=== PATIENT | female | born 1935 | race Caucasian/White ===

== ENCOUNTER 2019-10-11 12:25 | Emergency (ER) | payer OTHER, SELFPAY ==
[2019-10-11 12:28] VITALS: BP 154/75; PULSE 72; RESP 20; TEMP 36.6; O2SAT 97; BMI 32.0
--- NOTE | 2019-10-11 12:39 | CT_ITS ---
STUDY: CT CHEST WITHOUT CONTRAST REASON FOR EXAM: Female, 84 years old. FALL 3 DAYS AGO, STERNAL PAIN, RT SIDE CHEST PAIN RADIATION DOSAGE (If Supplied By Facility): CTDIvol = ( 18.02 ) mGy, DLP = ( 532.73 ) mGycm TECHNIQUE: Transaxial imaging was performed without the administration of intravenous contrast material. Multiplanar coronal and sagittal images were reformatted. Individualized dose optimization techniques were used for this CT. COMPARISON: None. FINDINGS: There is a small right pleural effusion. Mild degree of right basilar atelectasis superimposed on mild bibasilar scarring. There are calcifications of the coronary arteries. There are multiple small lymph nodes within the mediastinum, which are normal in size and morphology most compatible with reactive lymph hyperplasia. Normal hilar regions. Normal unenhanced pulmonary arteries. There is atherosclerotic calcification of the aortic arch . There are multi-level degenerative changes of the thoracic spine. There is no demonstrated abnormality of the visualized upper abdomen. CT/Chest without Contrast IMPRESSION: Small right pleural effusion with a mild degree of right basilar atelectasis superimposed on bibasilar scarring. Electronically Signed: Mio Gipson, at 13:23 EDT , Service support ,
--- NOTE | 2019-10-11 12:39 | EKG12_ITS ---
Test Reason : Blood Pressure : / mmHG Vent. Rate : 071 BPM Atrial Rate : 071 BPM P-R Int : 174 ms QRS Dur : 092 ms QT Int : 370 ms P-R-T Axes : 023 -25 029 degrees QTc Int : 402 ms Normal sinus rhythm with sinus arrhythmia Poor R wave progression Confirmed by SRUTHI LENNON, SILVIA ([id number]), acquisition editor LISS PARKER ([id number]) on 10/13/2019 1:13:35 PM Referred By: YASMEEN Confirmed By:SILVIA NEGRO MD
--- NOTE | 2019-10-11 12:42 | NURSING ---
NO OLD EKGS
--- NOTE | 2019-10-11 12:59 | ED.VISSUMM ---
- ER Visit Summary Date of Service: 10/11/19 Chief Complaint: [Fall with injury to chest] History of Present Illness: The patient is a 84 F [presents the emergency department with a fall that she sustained 3 days ago. Patient states that she tripped over a lawnmower and fell onto a piece of the lawnmower that was protruding over the wheel of the lawnmower causing an injury to her anterior chest. She denies tracking her head. No loss of consciousness. Patient is on Coumadin currently. She states that her right breast turned black and blue. She has pain with movement and taking a deep breath. She denies any shortness of breath. She denies any abdominal pain. Denies any neck pain. She did sustain a contusion to her knee but she is been walking and otherwise is doing well with it. Patient has history of diabetes, hypertension, and coronary artery disease.] Physical Examination: [HEENT-PERRLA, EOMI. Cranial nerves II through XII grossly intact. TMs clear. Mucous membranes moist. No adenopathy. Cardiovascular-regular rate and rhythm without murmur or ectopy Lungs-clear to auscultation, chest wall stable without crepitus or subcu emphysema. Patient does have ecchymosis and bruising to the right breast. She has tenderness over the sternum. She has tenderness over the right anterior chest. Abdomen-normoactive bowel sounds, soft, nontender, no rebound or rigidity, no peritoneal signs. Extremities-intact ?4, normal range of motion, normal pulses. Right knee-patient has some mild old ecchymosis and bruising noted anteriorly but normal range of motion. No real bony tenderness on exam. Neurovascular intact.] Test Results: [CBC with differential was unremarkable. INR was 2.1. EKG obtained arrival shows sinus rhythm with a ventricular rate 71 bpm with no acute segment changes. Troponin was less than 0.015. CT scan of the chest without contrast obtained showed an anterior sixth rib fracture.] Emergency Department Course and Treatment: [Patient will be dispensed an incentive spirometer] Treatment Plan: [Patient did not want any narcotic pain medication for home. She will be given incentive spirometer. Patient advised to follow-up with her primary care physician within next 5 to 7 days. She advised to return if increasing shortness of breath or condition should worsen anyway.] Disposition: [Discharged home in stable condition] Impression: [Right sixth rib fracture] This note was generated with [employer] ([place]ation software. It may contain incorrect words, spelling, and punctuation that were not noted in review of the chart prior to signing
[2019-10-11 13:03] LABS: Absolute Lymphocyte Count 1.89 X10^3/uL (0.83-4.51); Absolute Neutrophil Count 4.5 X10^3/uL (2.0-7.7); Basophil# 0.02 X10^3/uL; Basophil% 0.3 % (0-1); Eosinophil# 0.24 X10^3/uL; Eosinophils% 3.1 % (0-5); Hematocrit 39.2 % (37-47); Hemoglobin 12.8 g/dL (12.0-15.0); Lymphocyte # 1.89 X10^3/ul (4.0); Lymphocyte % 24.7 % (19-41); Mean Corp Hgb Conc 32.7 g/dL (32-36); Mean Corpuscular Hgb 30.4 pg (27.0-32.0); Mean Corpuscular Volume 93.1 fL (81-99); Monocyte# 0.99 X10^3/uL; Monocyte% 12.9 % (0-10); NRBC Flagged by Analyzer 0 % (0-5); Neutrophil % 58.9 % (47-70); Platelet Count 271 K/mm3 (150-450); RBC Distribution Width CV 12.8 % (11.6-14.6); RBC Distribution Width SD 43.4 fl (35.1-43.9); Red Blood Count 4.21 M/mm3 (4.2-5.4); White Blood Count 7.7 K/mm3 (4.4-11.0)
[2019-10-11 13:14] LABS: International Normalized Ratio 2.1; Prothrombin Time (Protime)PT. 22.6 SECONDS (11.7-14.9)
[2019-10-11 14:23] VITALS: BP 145/70; PULSE 70; RESP 16; O2SAT 97
--- NOTE | 2019-10-11 14:35 | ED.DEP ---
ED Disposition - Plan for ED Patient: Instructions: ED Rib Fx Referrals: Rosemary Doran MD [Primary Care Provider] - 5-7 Days
[2019-10-11 15:25] VITALS: BP 145/79; PULSE 94; RESP 22; O2SAT 96
--- NOTE | 2019-10-11 15:26 | ED.RN ---
THIS NURSE REVIEWED D/C INSTRUCTIONS WITH PT. PT VERBALIZED UNDERSTANDING OF INSTRUCTIONS. IV D/C BY PATIENT. PT DENIES FURTHER NEEDS OR QUESTIONS AT THIS TIME. PT AMBULATES FROM ROOM ON OWN WITHOUT ASSISTANCE FROM STAFF
== END 2019-10-11 15:28 | disposition home or self-care (01) ==
PROVIDERS: Emergency Provider Emergency Medicine; PCP Family Medicine
DX: S22.31XA Fracture of one rib, right side, initial encounter for closed fracture (principal); S80.01XA Contusion of right knee, initial encounter; W01.0XXA Fall on same level from slipping, tripping and stumbling without subsequent striking against object, initial encounter; Y93.9 Activity, unspecified; Y92.9 Unspecified place or not applicable; E11.9 Type 2 diabetes mellitus without complications; I10 Essential (primary) hypertension; I25.10 Atherosclerotic heart disease of native coronary artery without angina pectoris; Z79.01 Long term (current) use 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; Z79.899 Other long term (current) drug therapy
CPT/HCPCS: 71250; 84484; 85025; 85610; 93005; 99283; A4216

== ENCOUNTER → 2019-12-10 14:34 | Outpatient (CLI) | payer OTHER, SELFPAY ==
[2019-12-10 12:40] VITALS: BMI 33.5
[2019-12-10 15:28] LABS: Anion Gap 5 (5-15); BUN 25 mg/dL (7-18); BUN/Creat Ratio 19.8 RATIO (10-20); Calcium,Total 9.1 mg/dL (8.5-10.1); Chloride 105 mmol/L (98-107); Creatinine, Serum 1.26 mg/dL (0.55-1.02); EST Glomerular Filtration Rate 43 mL/min (>60); Est Glom Filt Rate - Afr Amer 52 mL/min (>60); Glucose 138 mg/dL (74-106); Sodium Level 140 mmol/L (136-145)
[2019-12-10 15:32] LABS: BNP,B-Type NATRIURETIC PEPTIDE 361.2 pg/mL (0-100)
== END ==
PROVIDERS: PCP Family Medicine; Referring Provider Internal Medicine Cardiovascular Disease; Visit Provider Internal Medicine Cardiovascular Disease
DX: R06.00 Dyspnea, unspecified (principal)
CPT/HCPCS: 36415; 80048; 83880

== ENCOUNTER → 2019-12-23 06:46 | Outpatient (CLI) | payer MEDICARE, SELFPAY ==
[2019-12-10 12:40] VITALS: BMI 33.5
--- NOTE | 2019-12-23 06:47 | ECHOCS_ITS ---
Reason For Study: CAD/ASHD Procedure This was a 2D Doppler, Color Flow transthoracic echocardiogram. Exam performed in department. Left Ventricle Normal LV size. Left ventricular systolic function is normal. The estimated ejection fraction is 55 %. No regional wall motion abnormalities noted. Right Ventricle Normal RV size. Normal systolic function. Atria The left atrium is mildly enlarged. Normal right atrium. Mitral Valve Normal mitral valve. Tricuspid Valve Normal tricuspid valve. Mild tricuspid valve insufficiency. Pulmonary artery systolic pressure is 25 mmHg. Aortic Valve Trisinus/trileaflet aortic valve. Mild focal aortic valve calcification. Mild (1+) eccentric aortic valve insufficiency. Pulmonic Valve Normal pulmonic valve. Great Vessels Normal aortic root. The pulmonary artery is normal size. Normal inferior vena cava. Pericardium/Pleural No pericardial effusion. Medication Diluted definity 4ml given slow IV push to enhance endocardial definition. MMode/2D Measurements & Calculations LVIDd: 3.9 cm IVSd: 0.97 cm Ao root diam: 3.2 cm LVIDs: 2.7 cm LVPWd: 1.0 cm RVDd: 3.0 cm FS: 31.9 % LAV(MOD-bp): 59.1 ml LVAd ap4: 22.7 cm2 SV(MOD-sp4): 41.0 ml LAV(MOD-bp) Indexed: 31.3 ml/m2 EDV(MOD-sp4): 65.1 ml LAV(MOD-sp2): 57.8 ml EDV(sp4-el): 68.4 ml LAV(MOD-sp4): 58.3 ml LVAs ap4: 12.2 cm2 ESV(MOD-sp4): 24.1 ml ESV(sp4-el): 24.4 ml EF(MOD-sp4): 63.0 % EF(sp4-el): 64.4 % SV(sp4-el): 44.1 ml LA A4 area: 20.9 cm2 LA dimension(2D): 4.1 cm RA A4 area: 13.9 cm2 Doppler Measurements & Calculations MV E max little: 87.9 cm/sec Ao V2 max: 126.0 cm/sec AI max little: 317.1 cm/sec Ao max P.4 mmHg AI max P.2 mmHg AI dec slope: 169.6 cm/sec2 AI P1/2t: 547.4 msec LV V1 max: 79.5 cm/sec PA V2 max: 82.2 cm/sec TR max little: 238.7 cm/sec LV V1 max P.5 mmHg TR max P.8 mmHg Interpretation Summary Normal LV size. Left ventricular systolic function is normal. The estimated ejection fraction is 55 %. Contrast injection was performed. Ordering Physician: Cesar Cole Referring Physician: ELENI RUSSO Performed By: Joanna Troncoso RDCS
--- NOTE | 2019-12-23 12:31 | STRESSREP ---
Stress Test Report Pharmacologic myocardial perfusion stress test. 84-year-old lady with a history of previous angioplasty and stenting in 2006 and a history of atrial fibrillation. Stress protocol: Resting EKG demonstrates atrial fibrillation with a rate of 82 bpm normal intervals are noted. Resting blood pressure is 134/72 mmHg. 0.4 mg of regadenoson was infused per usual protocol followed by rapid intravenous saline flush injection continuous EKG monitoring was performed. The maximum heart rate attained was 103 bpm which was 75% of max impacted heart rate the maximum workload was 1 metabolic equivalent. At rest there were no ST or T wave changes noted to suggest abnormal flow reserve and at peak infusion nonspecific ST-T wave changes were noted. The final blood pressure was 124/72 mmHg. Myocardial perfusion protocol. 11.1 mCi of technetium 99m sestamibi was injected at rest. 0.4 mg of regadenoson was infused per usual protocol. At peak infusion 33.5 mCi of technetium 99m sestamibi was injected stress images were obtained stress and rest images were reconstructed and compared in the short axis vertical long and horizontal long axis. Gated images were also obtained. Perfusion SPECT analysis: Review of the images demonstrate normal perfusion noted in the septal and lateral wall and inferior wall. The distal anterior wall towards the apex on the stress images has mild reduction of perfusion which appears to improve on the resting images suggesting a mild amount of distal anterior ischemia present. Gated SPECT analysis: The gated ejection fraction is 72%. Conclusion: Abnormal pharmacologic myocardial perfusion stress test with distal anterior and apical ischemia. Preserved ejection fraction. Atrial fibrillation present.
== END ==
PROVIDERS: PCP Family Medicine; Referring Provider Internal Medicine Cardiovascular Disease; Visit Provider Internal Medicine Cardiovascular Disease
DX: I25.10 Atherosclerotic heart disease of native coronary artery without angina pectoris (principal); I48.19 Other persistent atrial fibrillation; Z95.5 Presence of coronary angioplasty implant and graft
CPT/HCPCS: 78452; 93017; 93306; A9500; Q9957; A4216; C8929; J2785

== ENCOUNTER 2019-12-27 09:52 | Day surgery (SDC) | payer MEDICARE, SELFPAY ==
[2019-12-10 12:40] VITALS: BMI 33.5
[2019-12-24 09:35] VITALS: BMI 33.5
[2019-12-24 10:32] LABS: Hematocrit 41.8 % (37-47); Hemoglobin 13.6 g/dL (12.0-15.0); Mean Corp Hgb Conc 32.5 g/dL (32-36); Mean Corpuscular Volume 92.1 fL (81-99); Mean Platelet Vol. 10.9 fl (6.2-12.0); Platelet Count 287 K/mm3 (150-450); RBC Distribution Width CV 12.8 % (11.6-14.6); RBC Distribution Width SD 43.5 fl (35.1-43.9); Red Blood Count 4.54 M/mm3 (4.2-5.4); White Blood Count 7.2 K/mm3 (4.4-11.0)
[2019-12-24 11:10] LABS: Anion Gap 4 (5-15); BUN 28 mg/dL (7-18); BUN/Creat Ratio 21.1 RATIO (10-20); Calcium,Total 9.3 mg/dL (8.5-10.1); Chloride 106 mmol/L (98-107); Creatinine, Serum 1.33 mg/dL (0.55-1.02); EST Glomerular Filtration Rate 40 mL/min (>60); Est Glom Filt Rate - Afr Amer 49 mL/min (>60); Estimated Creatinine Clearance 26.05 ml/min; Glucose 136 mg/dL (74-106); Potassium 4.6 mmol/L (3.5-5.1); Sodium Level 140 mmol/L (136-145)
[2019-12-27 10:00] LABS: Prothrombin Time Fingerstick 19.9 SEC (11.9-14.4)
--- NOTE | 2019-12-27 12:51 | CL.D_ITS ---
Patient Name: EZRA GONZALEZ Study Date: 12/27/2019 Performing: Cesar Cole MD Ht: 63 inches 160 cm : 1935 Wt: 189.8 lbs 86 kg Age: 84 Gender: female BSA: 1.89 PROCEDURE(S) PERFORMED WW60-CTL/COR/LV CLINICAL PROFILE AND INDICATIONS Indications: Suspected CAD Heart Failure: None Stress/Imaging Standard Exercise Stress Test: Yes Result: Positive Intermediate Risk CAD Presentations: No Sxs, no angina. CONCLUSIONS Moderate coronary artery disease involving the LAD and circumflex distribution and mild disease noted in the right coronary artery. Coronary calcification present. RECOMMENDATIONS Medical therapy DESCRIPTION OF PROCEDURE The patient arrived to the procedure lab. The risks and benefits of the procedure as well as a full d escription of our services here and current unavailability of surgical backup were fully explained to the patient and/or their significant other prior to the catheterization. The Timeout was completed, verifying the correct patient and procedure. The patient's procedural site was prepped and draped in the usual fashion. Local anesthetic was given subcutaneously to right radial region with Lidocaine 2% . Using a modified Seldinger technique, arterial access was obtained via the right radial artery, a 6 Fr sheath was inserted. Right Coronary Artery selective angiography was then performed in multiple v iews using a 5 Fr. 4.0 [place]cad[place] catheter. Left Coronary Artery selective angiography was performed in mu ltiple views using a 5 Fr. JL3.5 catheter. Left Ventriculography was performed in LUGO projection usin g a 5 Fr. Pigtail catheter. LV to AO pullback pressures were then recorded.The arterial sheath was pulled and a TR Band was applied for hemostasis.15cc of air CORONARY ANGIOGRAPHY DOMINANCE: Right Dominant LEFT HEART ASSESSMENT Left Ventricular Ejection Fraction: by LV Gram 60 % Normal LV wall motion Normal Left Ventricular systolic function LEFT MAIN: Mild calcification LEFT ANTERIOR DESCENDING ARTERY: Moderate luminal irregularities up to 50% CIRCUMFLEX ARTERY: Moderate luminal irregularities up to 50% RIGHT CORONARY ARTERY: Mild luminal irregularities less than 30% Moderate calcification COMPLICATIONS No Complications PROCEDURE MEDICATIONS Versed 1 mg IV Fentanyl 50 mcg IV Versed 1 mg IV Fentanyl 25 mcg IV Oxygen: 2 L/min via nasal cannula SUMMARY OF HEMODYNAMIC DATA Time AIR REST ECG 11:16:44 AO 132/73 (94) SA 12:05:56 AO 119/68 (92) 12:10:32 LV 161/12, 15 12:37:13 LV 152/8, 40 12:37:19 LV 143/9, 11 12:38:30 LVp 151/8, 12 12:38:37 AOp 153/73 (110) 12:38:42 Signed By Cesar Cole MD On 12/27/2019 12:50:17 PM Cesar Cole MD
== END 2019-12-27 14:50 | disposition home or self-care (01) ==
LOC: CLSP 09:52
PROVIDERS: PCP Family Medicine; Referring Provider Internal Medicine Cardiovascular Disease; Visit Provider Internal Medicine Cardiovascular Disease
DX: I25.10 Atherosclerotic heart disease of native coronary artery without angina pectoris (principal); I48.19 Other persistent atrial fibrillation; E78.5 Hyperlipidemia, unspecified; E11.22 Type 2 diabetes mellitus with diabetic chronic kidney disease; I12.9 Hypertensive chronic kidney disease with stage 1 through stage 4 chronic kidney disease, or unspecified chronic kidney disease; N18.9 Chronic kidney disease, unspecified; E66.9 Obesity, unspecified; Z68.33 Body mass index [BMI] 33.0-33.9, adult; I48.0 Paroxysmal atrial fibrillation; M19.90 Unspecified osteoarthritis, unspecified site; M48.00 Spinal stenosis, site unspecified; Z95.5 Presence of coronary angioplasty implant and graft; Z79.01 Long term (current) use 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; Z79.82 Long term (current) use of aspirin; Z79.84 Long term (current) use of oral hypoglycemic drugs; Z79.899 Other long term (current) drug therapy; Z87.891 Personal history of nicotine dependence
CPT/HCPCS: 36415; 36416; 80048; 85027; 85610; 93458; 99152; 99153; J7040; Q9967; C1769; C1887; C1894

== ENCOUNTER 2020-01-24 10:32 | Outpatient (RCR) | payer MEDICARE, SELFPAY ==
[2019-12-24 09:35] VITALS: BMI 33.5
[2020-01-10 12:36] LABS: International Normalized Ratio 1.8; Prothrombin Time (Protime)PT. 20.8 SECONDS (11.7-14.9)
[2020-01-17 11:31] LABS: Prothrombin Time (Protime)PT. 37.1 SECONDS (11.7-14.9)
[2020-01-17 11:46] LABS: International Normalized Ratio 3.8
[2020-01-24 11:18] LABS: International Normalized Ratio 3.1; Prothrombin Time (Protime)PT. 31.5 SECONDS (11.7-14.9)
== END 2020-01-24 18:00 | disposition home or self-care (01) ==
LOC: LAB 10:32
PROVIDERS: PCP Family Medicine; Referring Provider Internal Medicine Cardiovascular Disease; Visit Provider Internal Medicine Cardiovascular Disease
DX: I48.0 Paroxysmal atrial fibrillation (principal); Z95.5 Presence of coronary angioplasty implant and graft; R06.00 Dyspnea, unspecified; I25.2 Old myocardial infarction; I11.0 Hypertensive heart disease with heart failure; I50.32 Chronic diastolic (congestive) heart failure; I48.19 Other persistent atrial fibrillation; E78.5 Hyperlipidemia, unspecified
CPT/HCPCS: 36415; 85610

== ENCOUNTER → 2020-03-10 11:21 | Outpatient (CLI) | payer MEDICARE, SELFPAY ==
[2020-02-02 10:03] VITALS: BMI 33.6
[2020-03-10 15:54] LABS: Prothrombin Time (Protime)PT. 39.9 SECONDS (11.7-14.9)
[2020-03-10 16:13] LABS: International Normalized Ratio 4.1
== END ==
PROVIDERS: PCP Family Medicine; Visit Provider Family Medicine
DX: I48.20 Chronic atrial fibrillation, unspecified (principal); Z79.01 Long term (current) use 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
CPT/HCPCS: 36415; 85610

== ENCOUNTER 2020-04-19 07:34 | Emergency (ER) | payer MEDICARE, SELFPAY ==
[2020-02-02 10:03] VITALS: BMI 33.6
[2020-04-19 07:35] VITALS: BP 165/74; PULSE 56; RESP 16; TEMP 36.3; O2SAT 94; BMI 34.0
--- NOTE | 2020-04-19 07:36 | RAD_ITS ---
STUDY: X-RAY - LUMBAR SPINE REASON FOR EXAM: Female, 84 years old. LBP. HX TRAUMA TECHNIQUE: 3 view(s) of the lumbar spine were obtained. COMPARISON: None FINDINGS: There is straightening of the normal lumbar lordosis. There is no substantial scoliosis. There is a normal alignment of the vertebrae. There is multilevel endplate spondylosis of the lumbar vertebrae. There is multi-level degenerative disc disease with multi-level disc space narrowing. This is worse at the L3-L4 level. Facet joint osteoarthritis. The patient is status post left hip replacement. There is atherosclerotic calcification of the abdominal aorta without a demonstrated aneurysm. Calcified gallstone. Large amount of fecal material is seen within the colon. RAD/Lumbar Spine 2 or 3 Views IMPRESSION: Degenerative changes of the spine, as detailed above. Calcified gallstone. Electronically Signed: Mio Gipson MD at 8:35 EST , Service support ,
[2020-04-19] MEDS: Ondansetron 4 MG/2 ML Vial IV (07:49)
[2020-04-19] MEDS: Morphine 4 MG/ML Syringe IV (07:49)
--- NOTE | 2020-04-19 08:19 | ED.VIS.INJ ---
History of Present Illness Chief Complaint: Back Informant: Patient Onset: Yesterday Mechanism/Context: Blunt Injury, Fall Quality of Pain: Dull, Aching Location: Upper lumbar region Current Severity: Mild Maximum Severity: Severe Worsened by: Movement Relieved by: Nothing Associated Symptoms: Negative for: Parasthesias, Weakness, Loss of function, Inability to ambulate, Loss of consciousness, Amnesia Length of loss of consciousness: Not applicable Narrative: Patient is an 84-year-old woman who had a mechanical fall. She struck the curb. She denies head trauma. No loss of conscious. She is on anticoagulant. She denies hematuria. She denies paresthesia, anesthesia or motor weakness in her lower extremities. She denies saddle paresthesia or anesthesia. She denies bowel or bladder dysfunction. Movement exacerbates her pain. Nothing alleviates the pain. She did take significant other's tramadol which made her nauseous. She denies prior injury. She has no other complaints. She did arrive via ambulance. 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 Status: Acute (2) Atherosclerotic heart disease of elim ira coronary artery without angina pectoris Status: Chronic (3) Chronic diastolic (congestive) heart failure Status: Chronic (4) Essential (primary) hypertension Status: Chronic (5) Hyperlipidemia Status: Chronic (6) Paroxysmal atrial fibrillation Status: Chronic Comment: RFA 2011 (7) History of coronary artery stent placement Status: Resolved Comment: PCI-JOE-Mid LCx w/ 2.5 x 20 mm Taxus Stent 02/14/2007 Past Medical History - Allergies and Home Meds Allergies/Adverse Reactions: Allergies latex Allergy (Verified 02/02/20 10:03) rash atorvastatin [From Lipitor] Adverse Reaction (Verified 02/02/20 10:03) myalgia codeine Adverse Reaction (Verified 02/02/20 10:03) Nausea meperidine [From Demerol] Adverse Reaction (Verified 02/02/20 10:03) Nausea/Vom/Diarrhea rosuvastatin [From Crestor] Adverse Reaction (Verified 02/02/20 10:03) myalgia Primary Care Physician: Rosemary Doran MD [Primary Care Provider] - Prior records reviewed: Yes Surgical History: noncontributory Lives: Spouse/ Significant Other Smoking Status: Former smoker Alcohol: Rare Drugs: None Review of Systems General: Denies: Chills, Fever, Malaise, Subjective, Sweats Eyes: Denies: Visual changes - bilaterally, Blurred Vision - bilaterally ENT: Reports: - - Negative epistaxis. Denies: Rhinorrhea, Sore throat Cardiovascular: Denies: Chest pain, Palpitations Respiratory: Denies: Dyspnea, Cough, Dyspnea on exertion Gastrointestinal: Denies: Abdominal pain, Nausea, Vomiting, Diarrhea, Melena, Hematochezia Genitourinary: Denies: Hematuria, Frequency Musculoskeletal: Reports: Back pain. Denies: Myalgias, Arthralgias, Neck pain, Swelling, Extremity Pain Skin: Denies: Rash, Wounds Neurological: Denies: Headache, Weakness, Parasthesia Endocrine: Denies: Polyuria, Polydipsia Hematologic: Reports: Easy bruising. Denies: Easy bleeding Allergy: Denies: Uticaria, Swelling of the mouth Physical Exam Vital Signs/Narrative: Vital Signs Temp Pulse Resp BP Pulse Ox 04/19/20 07:35 97.3 F L 56 L 16 165/74 H 94 Inital Vital Signs reviewed: Yes General: Well nourished, Well developed, Obese Head: Normocephalic, Atraumatic. Negative for: Trauma, Tenderness Eyes: Perrl, EOMI. Negative for: Pale conjunctiva, Scleral icterus ENT: TM's clear, No hemotympanum or drainage, No trauma, - - No clinical findings of basilar skull fracture.. Negative for: Hemotympanum, Otorrhea, Nasal trauma, Nasal septal hematoma Neck: Nontender, Full ROM, - - He was cleared per Nexus criteria.. Negative for: Spinal Tenderness, Paraspinal Tenderness Cardiovascular: Regular rhythm, No murmurs, Normal S1, Normal S2, Bradycardia Respiratory: No distress, CTA bilaterally, Chest nontender Abdomen: Soft, Nontender, Nondistended, Normal bowel sounds, No masses, - - There is no pain palpation of the pelvis. Rectal: Deferred Back: Spinal Tenderness - Tenderness area of L2., Negative SLR - Right, Negative SLR - Left. Negative for: Nontender, CVA Tenderness - Right, CVA Tenderness - Left, Paraspinal Tenderness, Positive SLR - Right, Positive SLR - Left Extremeties: There is no asymmetry. There is no discoloration. Scars noted due to right and left total knee arthroplasty. Scar noted lateral proximal right hip due to right total hip arthroplasty. Skin: Normal color, No rash Neurological: Alert, Oriented x3, Cranial nerves II-XII grossly intact, Normal Strength, Normal Sensation, Normal DTR - No clonus or Babinski sign., - - DP and PT pulse are palpable. Psychological: Normal affect, Normal Mood - Glascow Coma Scale Eye Opening: Spontaneous Motor: Obeys Commands Verbal: Oriented Coma Scale Total: 15 Diagnostic/Tx/Re-eval Chest X-Ray - ED: Read by ED Physician - 3 views of the LS-spine were obtained. There is abnormality of L1. There appears to be slight compression and on the PA view there is fracture noted inferior portion of the vertebrae on the right. There is calcification of the aorta. Patient has a prosthetic hip noted as well on the right., - - Is evidence of DJD with asymmetric disc space noted as well. 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 04/19/20 07:36 Lumbar Spine 2 or 3 Views [RAD] Stat - Medical Decision Making Was obtained to evaluate for compression fracture. Patient was medicated with Zofran and morphine IV push. Since there is no history of head trauma and she has no neurologic symptoms and a normal neurologic exam with a GSC of 15 imaging of the head was not obtained. She has urinated and has not noted dark urine or blood in her urine a UA was not obtained. Patient was reassessed at 0828. Ports her pain is improved markedly. 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 She also was given a prescription for antiemetic. Since she has history of osteopenia/osteoporosis prescription for calcitonin was written as well. ED Disposition - Plan for ED Patient: Disposition: Home or Assisted Living Diagnosis: Closed L1 vertebral fracture, [facility] current use of anticoagulant Instructions: ED Fracture, Vertebral Compression Prescriptions: Calcitonin,[place],Synthetic [Calcitonin-[place]] 3.7 ml NS BID #1 spray.pump Transmission Status: Pending to [facility] Oxycodone HCl/Acetaminophen [Percocet 5/325] 1 tablet PO Q6H PRN PRN 5 Days #20 tablet PRN Reason: Back pain Transmission Status: Sent to [facility] Ondansetron [Zofran Odt] 4 mg PO Q8H PRN PRN #10 tab PRN Reason: Nausea Transmission Status: Pending to [facility] Referrals: Rosemary Doran MD [Primary Care Provider] - 1 Week if not improving
[2020-04-19 08:41] VITALS: BP 141/63; PULSE 63; RESP 14; O2SAT 94
== END 2020-04-19 08:56 | disposition home or self-care (01) ==
LOC: ED 08:36
PROVIDERS: Emergency Provider Emergency Medicine; PCP Family Medicine
DX: S32.019A Unspecified 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 lumbar vertebra, initial encounter for closed fracture (principal); W19.XXXA Unspecified fall, initial encounter; Y93.9 Activity, unspecified; Y92.9 Unspecified place or not applicable; E66.9 Obesity, unspecified; E78.5 Hyperlipidemia, unspecified; I25.10 Atherosclerotic heart disease of native coronary artery without angina pectoris; I48.0 Paroxysmal atrial fibrillation; I11.0 Hypertensive heart disease with heart failure; I50.32 Chronic diastolic (congestive) heart failure; Z95.5 Presence of coronary angioplasty implant and graft; Z79.01 Long term (current) use 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; Z79.82 Long term (current) use of aspirin; Z79.899 Other long term (current) drug therapy; Z87.891 Personal history of nicotine dependence
CPT/HCPCS: 72100; 96374; 96375; 99285; A4216; J2405

== ENCOUNTER 2020-05-05 13:30 | Outpatient (RCR) | payer MEDICARE, SELFPAY | END 2020-05-05 23:59 | LOC: IMMUN 13:30 | PROVIDERS: PCP Family Medicine; Referring Provider Family Medicine; Visit Provider Family Medicine | DX: Z23 Encounter for immunization (principal) | CPT/HCPCS: 0011A; 0012A ==

== ENCOUNTER → 2020-05-30 13:09 | Outpatient (CLI) | payer MEDICARE, SELFPAY ==
[2020-05-30 14:24] LABS: International Normalized Ratio 4.1; Prothrombin Time (Protime)PT. 39.2 SECONDS (11.7-14.9)
== END ==
PROVIDERS: PCP Family Medicine; Visit Provider Family Medicine
DX: Z79.01 Long term (current) use 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 (principal)
CPT/HCPCS: 36415; 85610

== ENCOUNTER 2020-06-21 07:29 | Day surgery (SDC) | payer MEDICARE, SELFPAY ==
[2020-06-21] VITALS (7 sets, daily range): BP systolic 123–151; BP diastolic 52–76; PULSE 55–67; RESP 16; TEMP 36.3–37.1; O2SAT 93–99; BMI 30.2
[2020-06-21 08:15] LABS: INR Fingerstick 1.8; Prothrombin Time Fingerstick 20.3 SEC (11.9-14.4)
[2020-06-21] MEDS: Lactated Ringers 1,000 ML 100 ML IV (08:45)
[2020-06-21 08:53] LABS: International Normalized Ratio 1.4; Prothrombin Time (Protime)PT. 16.6 SECONDS (11.7-14.9)
[2020-06-21 08:55] LABS: Bedside Glucose 125 mg/dL (70-110)
--- NOTE | 2020-06-21 09:00 | BON_PTH ---
PATIENT: EZRA GONZALEZ LOC: [facility] [place] U#:[id number] AGE/SX: 84/F ROOM: RE06/21/[address]: Dr. Solange Lindsay MD : 1935 BED: DIS: 06/21/2020 SPEC #: [id number] RECD: 06/21/20 10:18 STATUS: FANNY RECynthia #: [id number] KELLIE: 06/21/20 09:[address]: Solange Lindsay DEPT: SURGICAL PATHOLOGY RECD BY: Kishore Griffith ENTERED: 06/21/20 10:40 SP TYPE: Bone OTHR DR: Dr. Rosemary Doran MD Tissues: Vertebra, NOS Procedures: Decalcification bone/plaque Surgery Specimen Level V HEADER OPERATION: Kyphoplasty L1 PRE-OP DIAGNOSIS: Compression fracture TISSUE SUBMITTED: Lumbar 1 vertebral body MICROSCOPIC DIAGNOSIS Lumbar 1 vertebral body, kyphoplasty: Pieces of bone with reactive changes and focal area of callus formation, clinically compression fracture. Negative for malignancy. JOSELUIS:allen 06/22/2020 MICROSCOPIC DESCRIPTION Slides are reviewed. GROSS DESCRIPTION Received in fixative is one container labeled with the patient's name and designated L1 vertebral body. The specimen consists of multiple fragments of bone that in aggregate measure 1.5 x 0.3 x 0.1 cm. The entire specimen is submitted in one cassette after decalcification. / JOSELUIS:allen 06/21/20 TC:5 CPT: 89526, 72139
--- NOTE | 2020-06-21 09:34 | RAD_ITS ---
CLINICAL HISTORY: Female, 84 years old. Chronic back pain. PROCEDURE: KYPHOPLASTY - L1 vertebrae. FLUOROSCOPY TIME (if supplied): (105.6 seconds) minutes/seconds. 8 intraoperative images were obtained. RAD/Lumbar Spine 2 or 3 Views IMPRESSION: Intraoperative imaging provided for kyphoplasty of the L1 vertebrae. Electronically Signed: Mio Gipson MD at 10:21 EDT , Service support ,
[2020-06-21] MEDS: Lidocaine 0.5% (50 ml) 50 ML Vial (09:59)
== END 2020-06-21 12:16 | disposition home or self-care (01) ==
LOC: SDC 07:30 → AC 07:31
PROVIDERS: Anesthesiology; PCP Family Medicine; Referring Provider Anesthesiology Pain Medicine; Visit Provider Anesthesiology Pain Medicine
PROC: (CPT 22514; principal; 2020-06-21 08:45)
DX: M80.88XA Other osteoporosis with current pathological fracture, vertebra(e), initial encounter for fracture (principal); M51.37 Other intervertebral disc degeneration, lumbosacral region; M51.36 Other intervertebral disc degeneration, lumbar region; I12.9 Hypertensive chronic kidney disease with stage 1 through stage 4 chronic kidney disease, or unspecified chronic kidney disease; N18.9 Chronic kidney disease, unspecified; I48.91 Unspecified atrial fibrillation; K58.9 Irritable bowel syndrome, unspecified; K21.9 Gastro-esophageal reflux disease without esophagitis; Z87.891 Personal history of nicotine dependence; Z20.828 Contact with and (suspected) exposure to other viral communicable diseases; Z79.899 Other long term (current) drug therapy; Z79.01 Long term (current) use 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; G89.29 Other chronic pain
CPT/HCPCS: 22514; 36416; 72100; 76000; 82962; 85610; 87426; 88305; 88307; 88311; C9803; J7120; J2405

== ENCOUNTER → 2020-08-04 11:28 | Outpatient (CLI) | payer MEDICARE, SELFPAY ==
[2020-08-04 09:54] VITALS: BMI 29.5
[2020-08-04 12:56] LABS: ALB/GLOB Ratio 0.8 RATIO (0.9-2.4); AST(SGOT) 13 U/L (15-37); Alanine Aminotransfer ALT/SGPT 12 U/L (13-56); Albumin, Serum 3.3 g/dL (3.2-5.0); Alkaline Phosphatase 87 U/L (45-117); Anion Gap 3 (5-15); BUN 15 mg/dL (7-18); BUN/Creat Ratio 12.7 RATIO (10-20); Calcium,Total 9.1 mg/dL (8.5-10.1); Chloride 105 mmol/L (98-107); Creatinine, Serum 1.18 mg/dL (0.55-1.02); EST Glomerular Filtration Rate 46 mL/min (>60); Est Glom Filt Rate - Afr Amer 56 mL/min (>60); Free T3 2.2 pg/mL (2.18-3.98); Globulin 3.9 g/dL (2.2-4.2); Glucose 98 mg/dL (74-106); Potassium 4.3 mmol/L (3.5-5.1); Protein, Total 7.2 g/dL (6.4-8.2); Sodium Level 140 mmol/L (136-145); Thyroid Stim Hormone (TSH) 2.08 uIU/mL (0.358-3.74)
== END ==
PROVIDERS: PCP Family Medicine; Referring Provider Physician Assistant Medical; Visit Provider Physician Assistant Medical
DX: I25.10 Atherosclerotic heart disease of native coronary artery without angina pectoris (principal); E78.5 Hyperlipidemia, unspecified; I11.0 Hypertensive heart disease with heart failure; I48.0 Paroxysmal atrial fibrillation; I50.32 Chronic diastolic (congestive) heart failure
CPT/HCPCS: 36415; 80053; 84439; 84443; 84481

== ENCOUNTER 2020-08-10 10:12 | Outpatient (RCR) | payer MEDICARE, SELFPAY ==
[2019-12-24 09:35] VITALS: BMI 33.5
[2020-08-04 09:54] VITALS: BMI 29.5
[2020-08-10 11:19] LABS: International Normalized Ratio 1.4; Prothrombin Time (Protime)PT. 16.7 SECONDS (11.7-14.9)
== END 2020-08-10 18:00 | disposition home or self-care (01) ==
LOC: LAB 10:12
PROVIDERS: PCP Family Medicine; Referring Provider Internal Medicine Cardiovascular Disease; Visit Provider Internal Medicine Cardiovascular Disease
DX: I48.0 Paroxysmal atrial fibrillation (principal)
CPT/HCPCS: 36415; 85610

== ENCOUNTER 2020-08-11 12:51 | Emergency (ER) | payer MEDICARE, SELFPAY ==
[2020-08-04 09:54] VITALS: BMI 29.5
[2020-08-11 12:52] VITALS: BP 153/91; PULSE 61; RESP 16; TEMP 36.1; O2SAT 97; BMI 33.0
--- NOTE | 2020-08-11 13:09 | CT_ITS ---
STUDY: CT BRAIN WITHOUT CONTRAST REASON FOR EXAM: Female, 85 years old. Trauma RADIATION DOSAGE (If Supplied By Facility): CTDIvol = ( 44.99 ) mGy, DLP = ( 779.24 ) mGycm TECHNIQUE: Transaxial CT imaging of the brain was performed without administration of intravenous contrast material. Individualized dose optimization techniques were used for this CT. COMPARISON: None. FINDINGS: There is no acute bleed or infarct. There are chronic ischemic and atrophic changes. The ventricles are normal in configuration. There is no hydrocephalus. The visualized paranasal sinuses are clear. The mastoid air cells are well aerated. There is no skull fracture. There is mild scalp soft tissue swelling in the left posterior parietal region. CT/Brain/Head without Contrast IMPRESSION: No acute intracranial abnormality. Chronic ischemic and atrophic changes. Mild scalp soft tissue swelling in the left posterior parietal region. Electronically Signed: Dylan Siu MD at 13:50 EDT Tel , Service support ,
--- NOTE | 2020-08-11 13:09 | CT_ITS ---
STUDY: CT CERVICAL SPINE WITHOUT CONTRAST REASON FOR EXAM: Female, 85 years old. Trauma RADIATION DOSAGE (If Supplied By Facility): CTDIvol = ( 25.89 ) mGy, DLP = ( 580.32 ) mGycm TECHNIQUE: High resolution transaxial imaging was performed without contrast material. Sagittal and coronal images were reconstructed. Individualized dose optimization techniques were used for this CT. COMPARISON: None available. FINDINGS: There is no evidence of fracture or dislocation in the cervical spine. The dens is intact. There is straightening of the normal cervical lordosis which may be due to paraspinal muscle spasm or may be positional in nature. The vertebral body heights are well-maintained. There are moderate multilevel degenerative changes with facet hypertrophy, disc space narrowing and osteophytes. The visualized paraspinal soft tissues are within normal limits. CT/Spine Cervical without Contras IMPRESSION: No fracture or dislocation in the cervical spine. Moderate degenerative change. Straightening of the normal cervical lordosis which may be due to paraspinal muscle spasm or may be positional in nature. Electronically Signed: Dylan Siu MD at 14:01 EDT Tel , Service support ,
--- NOTE | 2020-08-11 13:10 | EX.ED.GENINJ ---
HPI History of Present Illness Chief Complaint: Fall Informant: patient, spouse/S.O. and EMS Narrative Narrative: 85-year-old female states that she went to sit down in her kitchen chair and missed and fell over backwards. She states she hit the back of her head she believes on a cabinet knob and then landed mostly on the left hip. She states she went to get up and bear weight but could not. She states that her went and got the wheelchair that she had been using. She states in March she fell a compression fracture of her back and laid in bed for 6 weeks. She states that she did not want a wait very long to be evaluated so she called EMS. She is on Coumadin for atrial fibrillation. 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) Osteoarthritis Paroxysmal atrial fibrillation Persistent atrial fibrillation Pleural effusion on right (09/2019) Spinal stenosis Type 2 diabetes mellitus Home Medications simvastatin 20 mg PO DAILY 10/11/19 [History Last Taken Unknown] furosemide 40 mg tablet 40 mg PO DAILY #90 tab 12/10/19 [Rx Last Taken Unknown] lisinopril 5 mg tablet 5 mg PO DAILY 12/10/19 [History Last Taken 06/21/20] metoprolol succinate 100 mg tablet,extended release 24 hr 100 mg PO DAILY #90 tab 12/10/19 [Rx Last Taken 06/21/20] multivitamin 1 cap PO DAILY 12/10/19 [History Last Taken Unknown] warfarin 2 mg tablet 2 mg PO DAILY tab 01/31/20 [History Last Taken Unknown] calcium carbonate-vitamin D3 1 each PO DAILY 06/15/20 [History Last Taken Unknown] diphenhydramine HCl 25 mg capsule 25 mg PO QHS PRN 08/04/20 [History Last Taken Unknown] hydrocodone-acetaminophen 1 tab PO Q6H PRN PRN 3 Days #12 tablet 08/11/20 [Rx Last Taken Unknown] Allergy/AdvReac Type Severity Reaction Status Date / Time latex Allergy rash Verified 08/11/20 12:51 amiodarone AdvReac Severe Hair Verified 08/11/20 12:51 falling out in gobs atorvastatin [From Lipitor] AdvReac myalgia Verified 08/11/20 12:51 codeine AdvReac Nausea Verified 08/11/20 12:51 meperidine [From Demerol] AdvReac Nausea/Vom/ Verified 08/11/20 12:51 Diarrhea rosuvastatin [From Crestor] AdvReac myalgia Verified 08/11/20 12:51 Family History Father CAD (coronary artery disease) Brother CAD (coronary artery disease) Surgical History History of coronary artery stent placement (02/14/07) History of knee replacement History of kyphoplasty (~05/2020) History of left heart catheterization (12/27/19) History of left hip replacement History of radiofrequency ablation procedure for cardiac arrhythmia (2011) History of repair of rotator cuff Social History Smoking Status: Former smoker how long ago did patient quit smokin years ago alcohol intake: former substance use type: does not use caffeine: No ROS ROS ED Constitutional Constitutional ED: Denies chills or weight loss Eyes Eyes: Denies change in vision or diplopia ENT ENT ED: Denies ear pain, rhinorrhea or sore throat Cardiovascular Cardiovascular: Denies chest pain, orthopnea, palpitations or racing heartbeat Respiratory/Chest Respiratory/Chest: Denies cough, dyspnea or orthopnea Gastrointestinal Gastrointestinal: Denies abdominal pain, diarrhea, nausea or vomiting Genitourinary Genitourinary ED: Denies dysuria, hematuria or urinary frequency Musculoskeletal Musculoskeletal: Reports other Details: See history of present illness ; Denies arthralgias or myalgias Integumentary Reports other Details: Hematoma occiput ; Denies abscess or rash Neurologic Neurologic: Denies headache(s) or weakness Psychiatric Psychiatric: Denies anxiety, depression, suicidal ideation or suicidal thoughts Endocrine Endocrinology: Denies polydipsia, polyphagia or polyuria Allergic/Immunologic Allergic/Immunologic ED: Denies mouth swelling, tongue swelling or urticaria EXAM Physical Exam Const Vital Signs: 08/11/20 12:52 08/11/20 15:53 Temperature 97.0 F L Temperature Source Oral Pulse Rate 61 63 Respiratory Rate 16 16 Respiratory Effort Normal Non-Labored Respiratory Depth Normal Respiratory Pattern Normal Blood Pressure 153/91 H 142/63 H Blood Pressure Mean 111 89 Pulse Ox 97 96 Oxygen Delivery Method Room Air Room Air Positive well nourished and well developed General Appearance ED: well developed HEENT Reports normocephalic, head/scalp atraumatic and moist mucous membranes HEENT Narrative: Small hematoma to the occiput trauma Eyes PERRL and EOMs intact bilaterally Neck no lymphadenopathy, supple and no JVD Neck Narrative: Pain with movement of the neck to the left but full range of motion Resp normal respiratory effort and clear to auscultation bilaterally Cardio regular rate, regular rhythm and no murmurs GI normal to inspection, nondistended, normoactive bowel sounds and non-tender Palpation: soft Back/Spine no CVA tenderness and normal ROM Extremity Extremity Narrative: Tenderness over the lateral left hip. Painful flexion of the hip. General Extremety ED: Negative for edema General Extremity: Negative for edema Neuro oriented x3 and CN's II-XII intact bilaterally Sensorium / Orientation: alert Motor Exam: strength 5/5 throughout Psych mental status grossly normal Mood & Affect: Negative for depressed or tearful Skin no rashes or lesions noted and no wounds MDM MDM MDM Narrative Medical decision making narrative: Interpretation of the plain films of the hip and pelvis is a minimally displaced inferior pubic rami fracture on the left. Radiology concurs. CT of the brain and cervical spine was read by radiology reviewed myself and does not show any intracranial hemorrhage or fracture. The patient was given pain medication and was able to ambulate with some assistance. She has a walker and a wheelchair at home. She has a ramp built at this point patient will be referred to local orthopedics as the orthopedic surgeon who did her left hip revision is in [place] and she no longer resides there. Radiography Diagnostic Testing: Radiology Impression Brain CT 08/11/20 13:09 IMPRESSION: No acute intracranial abnormality. Chronic ischemic and atrophic changes. Mild scalp soft tissue swelling in the left posterior parietal region. Electronically Signed: Dylan Siu MD at 13:50 EDT Tel , Service support , Cervical Spine CT 08/11/20 13:09 IMPRESSION: No fracture or dislocation in the cervical spine. Moderate degenerative change. Straightening of the normal cervical lordosis which may be due to paraspinal muscle spasm or may be positional in nature. Electronically Signed: Dylan Siu MD at 14:01 EDT Tel , Service support , Hip/Pelvis X-Ray 08/11/20 13:40 IMPRESSION: Cortical irregularity in the left inferior pubic ramus which may represent a minimally displaced fracture. If indicated, further evaluation with CT can be performed. Electronically Signed: Dylan Siu MD at 14:14 EDT Tel , Service support , Discharge Plan Triage Chief Complaint: Fall ED Provider: Lucas Jones Dx/Rx/DC Orders Clinical Impression: Closed fracture of inferior pubic ramus Instructions: ED Pelvic Fracture Prescriptions: New hydrocodone-acetaminophen [hydrocodone-acetaminophen] 1 TABLET tablet 1 tab PO Q6H PRN PRN (Reason: Pain) 3 Days Qty: 12 RF: 0 No Action lisinopril 5 mg tablet 5 mg PO DAILY RF: 0 multivitamin capsule 1 cap PO DAILY RF: 0 metoprolol succinate 100 mg tablet extended release 24 hr 100 mg PO DAILY Qty: 90 RF: 4 furosemide 40 mg tablet 40 mg PO DAILY Qty: 90 RF: 3 warfarin 2 mg tablet 2 mg PO DAILY RF: 0 diphenhydramine HCl 25 mg capsule 25 mg PO QHS PRN (Reason: Sleep) RF: 0 simvastatin 20 MG tablet 20 mg PO DAILY RF: 0 calcium carbonate-vitamin D3 1 EACH tablet 1 each PO DAILY RF: 0 Primary Care Provider: Rosemary Doran Referrals: Rosemary Doran MD [Primary Care Provider] - Frank Diallo DO [STAFF PHYSICIAN] - As soon as possible Disposition Disposition: Home, self care
--- NOTE | 2020-08-11 13:40 | RAD_ITS ---
STUDY: X-RAY - PELVIS AND LEFT HIP REASON FOR EXAM: Female, 85 years old. Injury TECHNIQUE: 4 views of the pelvis and left hip. COMPARISON: None. FINDINGS: The patient is status post left hip arthroplasty. The hardware is intact and alignment is satisfactory. There is a cortical irregularity in the left inferior pubic ramus which may represent a minimally displaced fracture. If indicated, further evaluation with CT can be performed. The remainder of the visualized osseous structures are intact. There are moderate degenerative changes in the right hip. RAD/HIP, UNI W/ Pelvis 2-3 Views IMPRESSION: Cortical irregularity in the left inferior pubic ramus which may represent a minimally displaced fracture. If indicated, further evaluation with CT can be performed. Electronically Signed: Dylan Siu MD at 14:14 EDT Tel , Service support ,
[2020-08-11 15:53] VITALS: BP 142/63; PULSE 63; RESP 16; O2SAT 96
[2020-08-11] MEDS: HYDROcodone Bitartrate/Apap 5/325 Tablet PO (15:54)
[2020-08-11] MEDS: Ondansetron ODT 4 MG Tablet PO (16:12)
--- NOTE | 2020-08-11 16:36 | ED.RN ---
PT AMBULATED WITH ASSISTANCE OF STAFF STEADILY. PT REPORTS HAVING A WHEELCHAIR AND A WALKER WITH WHEELCHAIR RAMP AT HOME. PT ABLE TO LIFT LEG WITH SLIGHT DISCOMFORT. PT DRESSED AND ASSISTED TO WHEELCHAIR. EDUCATED ON D/C INSTRUCTIONS AND PRESCRIPTIONS. VERBALIZES UNDERSTANDING AND DENIES ANY FURTHER QUESTIONS.
== END 2020-08-11 16:38 | disposition home or self-care (01) ==
PROVIDERS: Emergency Provider Emergency Medicine; PCP Family Medicine
DX: S32.592A Other specified fracture of left pubis, initial encounter for closed fracture (principal); W19.XXXA Unspecified fall, initial encounter; Y93.9 Activity, unspecified; Y92.9 Unspecified place or not applicable; I13.0 Hypertensive heart and chronic kidney disease with heart failure and stage 1 through stage 4 chronic kidney disease, or unspecified chronic kidney disease; E11.22 Type 2 diabetes mellitus with diabetic chronic kidney disease; N18.9 Chronic kidney disease, unspecified; I50.32 Chronic diastolic (congestive) heart failure; E66.9 Obesity, unspecified; Z68.33 Body mass index [BMI] 33.0-33.9, adult; E78.5 Hyperlipidemia, unspecified; I25.10 Atherosclerotic heart disease of native coronary artery without angina pectoris; I25.2 Old myocardial infarction; I48.0 Paroxysmal atrial fibrillation; M19.90 Unspecified osteoarthritis, unspecified site; M48.00 Spinal stenosis, site unspecified; Z79.01 Long term (current) use 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; Z79.899 Other long term (current) drug therapy; Z87.891 Personal history of nicotine dependence
CPT/HCPCS: 70450; 72125; 73502; 99285

== ENCOUNTER → 2020-08-25 07:57 | Outpatient (CLI) | payer MEDICARE, SELFPAY ==
[2020-08-11 12:52] VITALS: BMI 33.0
--- NOTE | 2020-08-25 08:01 | CT_ITS ---
STUDY: CT PELVIS WITHOUT CONTRAST REASON FOR EXAM: Female, 85 years old. FRACTURE OF LEFT PUBIS RADIATION DOSAGE (If Supplied By Facility): CTDIvol = ( 24.53 ) mGy, DLP = ( 685.94 ) mGycm TECHNIQUE: Transaxial imaging of the pelvis was performed without oral contrast, and without intravenous administration of contrast material. Individualized dose optimization techniques were used for this CT. COMPARISON: X-ray 08/11/2020 FINDINGS: Normal urinary bladder. Normal visualized small intestine. Normal visualized colon. There is no pelvic fluid. There is no pelvic mass lesion or lymphadenopathy. Normal visualized pelvic arteries. Normal abdominal wall. Status post left hip arthroplasty which produces streak artifact obscures the pelvis. Acute nondisplaced fracture the left inferior pubic ramus. CT/Pelvis without IV Contrast IMPRESSION: Acute nondisplaced fracture left inferior pubic ramus. Electronically Signed: Norm Jorge MD at 12:10 EDT Tel , Service support ,
--- NOTE | 2020-08-25 08:01 | CT_ITS ---
CT of the left hip without contrast INDICATION: Fall, hip pain, unable to bear weight. TECHNIQUE: Multiple thin section axial CT images the left hip joint were obtained without the administration of intravenous contrast and filmed in soft tissue and bone windows. Furthermore, multiple sagittal and coronal reconstructions were performed. Dose limiting techniques were utilized. FINDINGS: No abnormal soft tissue mass, lymphadenopathy, fluid collection. Subacute hematoma within the posterior left buttock from recent fall. This traces anteriorly to a comminuted nondisplaced fracture the left inferior pubic ramus. Status post left hip arthroplasty which produces streak artifact obscures the pelvis. IMPRESSION: Acute comminuted nondisplaced fracture the left inferior pubic ramus with hematoma of the posterior left buttock. Electronically Signed: Norm Jorge MD at 12:12 EDT Tel , Service support , CT/Extremity Lower without Contra
== END ==
PROVIDERS: PCP Family Medicine; Referring Provider Physician Assistant; Visit Provider Physician Assistant
DX: S32.592A Other specified fracture of left pubis, initial encounter for closed fracture (principal)
CPT/HCPCS: 72192; 73700

== ENCOUNTER → 2021-01-08 | Outpatient (CLI) | payer MEDICARE, SELFPAY | END | disposition home or self-care (01) | LOC: LABSPEC 01-09 13:34 | PROVIDERS: PCP Family Medicine; Referring Provider Physician Assistant; Visit Provider Physician Assistant | DX: Z11.52 Encounter for screening for COVID-19 (principal) | CPT/HCPCS: 87635; U0005; U0003 ==

== ENCOUNTER → 2021-01-31 09:08 | Outpatient (CLI) | payer MEDICARE, SELFPAY ==
--- NOTE | 2021-01-31 09:15 | RAD_ITS ---
HISTORY: WOODRUFF. TECHNIQUE: XR Chest 2 Views. # of images incl. paperwork: 2. COMPARISON: CT 10/11/2019. FINDINGS: CARDIOMEDIASTINAL STRUCTURES: Cardiac silhouette not enlarged. Mediastinal contour unremarkable with calcification of the aorta. LUNGS: Coarse chronic interstitial markings in the lungs without focal consolidation. PLEURA: No pleural effusion or pneumothorax. OSSEOUS STRUCTURES: Degenerative change with a high riding right humeral head from chronic rotator cuff disease. Chronic lumbar spine compression fracture with vertebroplasty. OTHER: Round calcification in the right upper quadrant, possible gallstone. RAD/Chest PA and Lateral IMPRESSION: Mild chronic interstitial changes in the lungs. at 0935 Reported and signed by: Ban Avila MD Electronically Signed: Ban Avila MD at 9:34 EDT Tel , Service support ,
[2021-01-31 11:23] LABS: Absolute Lymphocyte Count 2.14 X10^3/uL (0.83-4.51); Absolute Neutrophil Count 4.2 X10^3/uL (2.0-7.7); Basophil# 0.04 X10^3/uL; Basophil% 0.5 % (0-1); Eosinophil# 0.28 X10^3/uL; Eosinophils% 3.8 % (0-5); Hematocrit 43.1 % (37-47); Hemoglobin 13.5 g/dL (12.0-15.0); Lymphocyte # 2.14 X10^3/ul (0.83-4.51); Lymphocyte % 28.8 % (19-41); Mean Corp Hgb Conc 31.3 g/dL (32-36); Mean Corpuscular Hgb 29.3 pg (27.0-32.0); Mean Corpuscular Volume 93.7 fL (81-99); Mean Platelet Vol. 11.2 fl (6.2-12.0); Monocyte# 0.72 X10^3/uL; Monocyte% 9.7 % (0-10); NRBC Flagged by Analyzer 0 % (0-5); Neutrophil # 4.22 X10^3/uL (2.7-7.7); Neutrophil % 56.9 % (47-70); Platelet Count 307 K/mm3 (150-450); RBC Distribution Width CV 13.5 % (11.6-14.6); RBC Distribution Width SD 46.8 fl (35.1-43.9); White Blood Count 7.4 K/mm3 (4.4-11.0)
[2021-01-31 12:10] LABS: Anion Gap 4 (5-15); BUN 22 mg/dL (7-18); BUN/Creat Ratio 16.4 RATIO (10-20); Calcium,Total 9.1 mg/dL (8.5-10.1); Chloride 104 mmol/L (98-107); Creatinine, Serum 1.34 mg/dL (0.55-1.02); EST Glomerular Filtration Rate 40 mL/min (>60); Est Glom Filt Rate - Afr Amer 48 mL/min (>60); Glucose 123 mg/dL (74-106); Sodium Level 138 mmol/L (136-145); Thyroid Stim Hormone (TSH) 2.37 uIU/mL (0.358-3.74)
== END ==
PROVIDERS: PCP Family Medicine; Referring Provider Physician Assistant Medical; Visit Provider Physician Assistant Medical
DX: I48.0 Paroxysmal atrial fibrillation (principal); I25.10 Atherosclerotic heart disease of native coronary artery without angina pectoris; I11.0 Hypertensive heart disease with heart failure; I50.32 Chronic diastolic (congestive) heart failure; R06.00 Dyspnea, unspecified; E78.5 Hyperlipidemia, unspecified; R53.83 Other fatigue
CPT/HCPCS: 36415; 71046; 80048; 84443; 85025

== ENCOUNTER → 2021-02-13 14:02 | Outpatient (CLI) | payer MEDICARE, SELFPAY ==
--- NOTE | 2021-02-13 14:03 | ECHOCS_ITS ---
Reason For Study: WOODRUFF Procedure This was a 2D Doppler, Color Flow transthoracic echocardiogram. The study was technically difficult. Contrast injection was performed. Exam performed in department. Left Ventricle Normal LV size. Left ventricular systolic function is normal. The estimated ejection fraction is 60 %. Stage 1 diastolic dysfunction. No regional wall motion abnormalities noted. Right Ventricle Normal RV size. Normal systolic function. Atria Normal left atrium. Normal right atrium. Mitral Valve Normal mitral valve. Tricuspid Valve Normal tricuspid valve. Aortic Valve Normal aortic valve. Mild (1+) aortic valve insufficiency. Pulmonic Valve Normal pulmonic valve. Great Vessels Normal aortic root. The pulmonary artery is normal size. Normal inferior vena cava. Pericardium/Pleural No pericardial effusion. Medication 22 gauge I.V. with prn adaptor inserted into right arm. Diluted definity 2ml given slow IV push to enhance endocardial definition. MMode/2D Measurements & Calculations LVIDd: 4.5 cm IVSd: 1.4 cm Ao root diam: 3.5 cm LVIDs: 2.8 cm LVPWd: 1.2 cm LA dimension: 3.9 cm FS: 37.3 % LAV(MOD-bp): 60.4 ml LA A4 area: 21.5 cm2 RA A4 area: 16.4 cm2 LAV(MOD-bp) Indexed: 32.3 ml/m2 LAV(MOD-sp2): 57.2 ml LAV(MOD-sp4): 62.2 ml Time Measurements MV dec time: 0.28 sec Doppler Measurements & Calculations MV E max ac: 64.4 cm/sec Lat Peak E' Ac: 8.3 cm/sec Med Peak E' Ac: 6.5 cm/sec MV A max ac: 77.5 cm/sec E/E' lat: 7.7 E/E' med: 10.0 MV E/A: 0.83 MV V2 max: 73.8 cm/sec MV P1/2t max ac: 62.0 cm/sec Ao V2 max: 147.8 cm/sec MV max P.2 mmHg MV P1/2t: 74.6 msec Ao max P.7 mmHg MV V2 mean: 39.3 cm/sec MV dec slope: 243.3 cm/sec2 MV mean P.73 mmHg MV V2 VTI: 24.3 cm MVA(P1/2t): 2.9 cm2 AI max ac: 334.5 cm/sec LV V1 max: 95.5 cm/sec PA V2 max: 85.6 cm/sec AI max P.8 mmHg LV V1 max P.6 mmHg AI dec slope: 239.2 cm/sec2 AI P1/2t: 409.7 msec TR max ac: 234.2 cm/sec TR max P.9 mmHg ECHO/Echo Complete W/ Contrast Interpretation Summary Normal LV size. Left ventricular systolic function is normal. The estimated ejection fraction is 60 %. Stage 1 diastolic dysfunction. Contrast injection was performed. Ordering Physician: Rachell Cuevas Referring Physician: Rosemary Doran Performed By: Toni Gillespie RCS
== END ==
PROVIDERS: PCP Family Medicine; Referring Provider Physician Assistant Medical; Visit Provider Physician Assistant Medical
DX: I48.0 Paroxysmal atrial fibrillation (principal)
CPT/HCPCS: 93306; Q9957; A4216; C8929; J3490

== ENCOUNTER → 2021-03-13 11:31 | Outpatient (CLI) | payer MEDICARE, SELFPAY ==
--- NOTE | 2021-03-13 11:33 | RAD_ITS ---
STUDY: X-RAY CHEST REASON FOR EXAM: Female, 85 years old. COUGH TECHNIQUE: PA and lateral views of the chest. COMPARISON: 01/31/2021 FINDINGS: No change in reticulonodular opacities within the lungs consistent with chronic interstitial lung disease, likely a pathologic pulmonary fibrosis. No superimposed alveolar opacity within the lungs to suggest pneumonia or atelectasis. There is no demonstrated pleural abnormality. Normal size heart. Normal mediastinum and mary grace. Normal visualized pulmonary arteries. Normal visualized aortic arch and descending thoracic aorta. Normal visualized thoracic spine. Normal visualized ribs, clavicles, and shoulders. There is no demonstrated abnormality of the visualized soft tissue structures of the upper abdomen. RAD/Chest PA and Lateral IMPRESSION: No change from 01/31/2021. Electronically Signed: Norm Jorge MD at 17:12 EST Tel , Service support ,
== END ==
PROVIDERS: PCP Family Medicine; Referring Provider Family Medicine; Visit Provider Family Medicine
DX: R05.9 Cough, unspecified (principal)
CPT/HCPCS: 71046; 87633

== ENCOUNTER 2021-05-03 12:08 | Outpatient (CLI) | payer MEDICARE, SELFPAY ==
--- NOTE | 2021-05-03 12:31 | MRI_ITS ---
History: PAIN WITH STANDING Technique: T1 and T2 MR imaging of the lumbar spine performed without contrast enhancement in axial and sagittal planes. Comparison: Lumbar radiographs April 19, 2020 Findings: Loss of the lumbar lordosis again noted. Chronic appearing inferior endplate deformity of the L1 vertebral body which may be related to remote trauma. Prominent multilevel disc space narrowing most pronounced at the L3-4 level. Modic type II endplate changes are present at L3-4 and L4-5. No bone marrow edema. Conus medullaris and cauda equina are normal. Paraspinal soft tissues are normal. 16 mm gallstone. L1-2: No disc herniation facet arthropathy and posterior ligamentous redundancy noted without significant impression on the thecal sac. Moderate narrowing of the neural foramina. L2-3: Mild disc bulging, posterior ligamentous redundancy and facet arthropathy results in minor impression on the thecal sac. No significant narrowing of the neural foramina. L3-4: Virtual complete loss of the disc space. Mild retrolisthesis of L3 on L4 results in mild impression on the thecal sac the additional facet arthropathy results in moderate narrowing of the neural foramina. L4-5: No disc protrusion. Posterior ligamentous redundancy and facet arthropathy results in narrowing of the neural foramina but no significant compression of the thecal sac. L5-S1: No disc protrusion. Ligamentous redundancy and facet arthropathy results in moderate bilateral neural foraminal stenosis. Normal caliber spinal canal. IMPRESSION: Prominent multilevel disc degeneration and facet arthropathy without significant spinal stenosis. Multilevel neural foraminal narrowing related to facet arthropathy. at 1127 Reported and signed by: Geronimo Estrella MD Electronically Signed: Geronimo Estrella MD at 11:25 EST , MRI/Spine Lumbar (Routine)
== END 2021-05-03 23:59 | disposition short-term general hospital (02) ==
PROVIDERS: PCP Family Medicine; Referring Provider Family Medicine; Visit Provider Family Medicine
DX: M48.061 Spinal stenosis, lumbar region without neurogenic claudication (principal)
CPT/HCPCS: 72148

== ENCOUNTER 2022-02-11 00:06 | Emergency (ER) | payer MEDICARE, SELFPAY ==
[2022-02-11 00:07] VITALS: BP 136/64; PULSE 85; RESP 19; TEMP 36.9; O2SAT 100; BMI 33.1
--- NOTE | 2022-02-11 00:37 | EKG12_ITS ---
Test Reason : CP Blood Pressure : / mmHG Vent. Rate : 079 BPM Atrial Rate : 079 BPM P-R Int : 184 ms QRS Dur : 096 ms QT Int : 378 ms P-R-T Axes : 060 -31 026 degrees QTc Int : 433 ms Sinus rhythm with Premature atrial complexes Left axis deviation Abnormal ECG Confirmed by CONRAD LENNON, ALIX ([id number]), brands editor LISS PARKER ([id number]) on 02/12/2022 11:24:57 AM Referred By: JOYCELYN Confirmed By:ALIX MARTINES MD
[2022-02-11 00:46] LABS: Basophil# 0.05 X10^3/uL; Basophil% 0.4 % (0-1); Eosinophil# 0.22 X10^3/uL; Eosinophils% 1.7 % (0-5); Hematocrit 38.9 % (37-47); Hemoglobin 12.8 g/dL (12.0-15.0); Lymphocyte % 11.8 % (19-41); Mean Corp Hgb Conc 32.9 g/dL (32-36); Mean Corpuscular Hgb 30.2 pg (27.0-32.0); Mean Corpuscular Volume 91.7 fL (81-99); Monocyte# 0.85 X10^3/uL; Monocyte% 6.7 % (0-10); NRBC Flagged by Analyzer 0 % (0-5); Neutrophil # 10.01 X10^3/uL (2.7-7.7); Neutrophil % 79.1 % (47-70); Platelet Count 286 K/mm3 (150-450); RBC Distribution Width CV 12.9 % (11.6-14.6); RBC Distribution Width SD 43.5 fl (35.1-43.9); Red Blood Count 4.24 M/mm3 (4.2-5.4); White Blood Count 12.7 K/mm3 (4.4-11.0)
--- NOTE | 2022-02-11 00:53 | EX.ED.DYSGE1 ---
HPI History of Present Illness Chief Complaint: Chest Pain Narrative Narrative: Patient is an 86-year-old female with past medical history of paroxysmal atrial fibrillation currently on Coumadin as well as hypertension hyperlipidemia and diabetes. She states she broke her lumbar vertebrae multiple years ago and had to have a kyphoplasty. She states since that time she typically has pain with standing that did not improve with surgery or nerve block. She states that she gained weight secondary to this and over the past 5 days has been trying to exercise on the stationary bike. She denies any trauma but states that after doing it for multiple days in a row she noticed some pain in her hips today with walking that seem to improve. She states then she was in bed this evening reading as she normally does when she got midsternal chest discomfort. She states that there was no nausea vomiting diaphoresis or shortness of breath and there was no radiation of the pain. She states she took some Tylenol and waited approximately 3 hours and the pain has improved but is not completely resolved. 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) Osteoarthritis Paroxysmal atrial fibrillation Persistent atrial fibrillation Pleural effusion on right (09/2019) Spinal stenosis Type 2 diabetes mellitus Home Medications simvastatin 20 mg tablet 20 mg PO DAILY 10/11/19 [History Last Taken Unknown] furosemide 40 mg tablet 40 mg PO DAILY #90 tabs 12/10/19 [Rx Last Taken Unknown] lisinopril 5 mg tablet 5 mg PO DAILY 12/10/19 [History Last Taken 06/21/20] multivitamin 1 cap PO DAILY 12/10/19 [History Last Taken Unknown] ascorbate calcium (vitamin C) 500 mg tablet 500 mg PO DAILY 01/31/21 [History Last Taken Unknown] warfarin 2 mg tablet 2.5 mg PO DAILY 04/20/21 [History Last Taken Unknown] metoprolol succinate 25 mg tablet,extended release 24 hr 25 mg PO DAILY #90 tabs 02/06/22 [Rx Last Taken Unknown] tramadol 50 mg tablet 50 mg PO 4X/DAY PRN PRN pain 3 days #12 tabs 02/11/22 [Rx Last Taken Unknown] Allergy/AdvReac Type Severity Reaction Status Date / Time latex Allergy rash Verified 02/11/22 00:10 amiodarone AdvReac Severe Hair Verified 02/11/22 00:10 falling out in gobs atorvastatin [From Lipitor] AdvReac myalgia Verified 02/11/22 00:10 codeine AdvReac Nausea Verified 02/11/22 00:10 meperidine [From Demerol] AdvReac Nausea/Vom/ Verified 02/11/22 00:10 Diarrhea rosuvastatin [From Crestor] AdvReac myalgia Verified 02/11/22 00:10 Family History Father CAD (coronary artery disease) Brother CAD (coronary artery disease) Surgical History History of coronary artery stent placement (02/14/07) History of knee replacement History of kyphoplasty (~05/2020) History of left heart catheterization (12/27/19) History of left hip replacement History of radiofrequency ablation procedure for cardiac arrhythmia (2011) History of repair of rotator cuff Social History Smoking Status: Former smoker how long ago did patient quit smokin years ago alcohol intake: former substance use type: does not use caffeine: No ROS ROS ED Constitutional Constitutional ED: Denies chills or fever(s) ENT ENT ED: Denies sore throat Cardiovascular Cardiovascular: Reports chest pain; Denies palpitations or racing heartbeat Respiratory/Chest Respiratory/Chest: Denies cough or dyspnea Gastrointestinal Gastrointestinal: Denies abdominal pain, diarrhea, nausea or vomiting Genitourinary Genitourinary ED: Denies dysuria Musculoskeletal Musculoskeletal: Denies myalgias Integumentary Denies rash Neurologic Neurologic: Denies headache(s) Hematologic/Lymphatic Hematologic/Lymphatic: Reports easy bleeding and easy bruising EXAM Physical Exam Const Vital Signs: 02/11/22 00:07 11/14/22 01:26 Temperature 98.4 F Temperature Source Oral Pulse Rate 85 78 Respiratory Rate 19 H 17 Blood Pressure 136/64 H 107/66 Blood Pressure Mean 88 79 Pulse Ox 100 96 Oxygen Delivery Method Room Air Room Air Positive well nourished, well developed and obese General Appearance ED: well developed Nutritional Appearance: obese Eyes PERRL and EOMs intact bilaterally Neck supple and no JVD Chest Wall Chest Narrative: There is mild reproducible anterior chest wall pain along the costal/sternal joints that patient states is the same pain she has been experiencing. No bony deformity or crepitance Resp normal respiratory effort and clear to auscultation bilaterally Cardio regular rate and regular rhythm Rate: other Other Details: Radial pulses are plus 2 out of 4 bilaterally are equal and symmetric Carotid pulses equal and symmetric as well GI normal to inspection, nondistended, normoactive bowel sounds, non-tender and non-distended GI Narrative: No voluntary guarding or rigidity. No pulsatile mass Auscultation: normoactive bowel sounds Palpation: soft Extremity normal to inspection Extremity Narrative: No asymmetric edema no pitting edema negative Homans' sign bilaterally Neuro oriented x3 and CN's II-XII intact bilaterally Sensorium / Orientation: alert Psych mental status grossly normal Skin no rashes or lesions noted MDM MDM MDM Narrative Medical decision making narrative: Patient presented to the ER with stable vitals. EKG showed sinus rhythm with occasional PAC which patient states is normal for her. She does have risk factors for cardiovascular disease and secondary to this a cardiac work-up was ordered. The work-up shows a therapeutic INR at 2.7 and therefore my concern for pulmonary embolus is low especially as patient is not tachycardic or hypoxic. The patient reported constant pain for over 3 hours and her troponin is normal at 13. We discussed obtaining a delta troponin secondary to her risk factors and symptoms but patient states she does not want to stay in the hospital any longer as she has had resolution of her pain and her EKG is normal and her initial blood test for the heart is normal as well. Therefore at this time as chest x-ray reveals no acute lung pathology EKG is sinus and troponin normal and patient's had resolution of her pain she will be discharged and she can follow-up with her family doctor or return to the ER if she has any further concerns. Lab Data Attestation: I reviewed the patient's lab results. Labs: Laboratory Results - last 24 hr 02/11/22 02/11/22 02/11/22 00:20 00:20 00:20 WBC 12.7 H RBC 4.24 Hgb 12.8 Hct 38.9 MCV 91.7 MCH 30.2 MCHC 32.9 RDW Std Deviation 43.5 RDW Coeff of [place] 12.9 Plt Count 286 MPV 11.0 Immature Gran % (Auto) 0.300 Neut % (Auto) 79.1 H Lymph % (Auto) 11.8 L [place] % (Auto) 6.7 Eos % (Auto) 1.7 Baso % (Auto) 0.4 Absolute Neuts (auto) 10.0 H Absolute Lymphs (auto) 1.50 Nucleated RBC % 0 PT 28.0 H INR 2.7 Sodium 138 Potassium 3.9 Chloride 102 Carbon Dioxide 26.0 Anion Gap 10 BUN 32 H Creatinine 1.73 H Estim Creat Clear Calc 19.31 Est GFR (MDRD) Af Amer 36 L Est GFR (MDRD) Non-Af 30 L BUN/Creatinine Ratio 18.5 Glucose 153 H Calcium 9.1 Magnesium 2.2 Troponin I High Sens 13 Radiography Diagnostic Testing: Clinical Impression(s) from Imaging Studies Chest X-Ray 02/11/22 01:08 IMPRESSION: No significant change. Cardiomegaly and mild chronic interstitial prominence in both lungs similar to prior. Electronically Signed: Raad Pierson MD at 1:28 EST Reading Location ID and State: [address] [place] [address] Tel , Service support , 2 view chest x-ray as interpreted by the emergency medicine physician reveals cardiomegaly with mild interstitial changes which are chronic in nature without acute infiltrate pneumothorax pleural effusion or widening of the mediastinum Discharge Plan Triage Chief Complaint: Chest Pain ED Provider: Reese Shankar Dx/Rx/DC Orders Clinical Impression: Nonspecific chest pain, Current use of deburring technician anticoagulation, Paroxysmal atrial fibrillation, Essential (primary) hypertension Instructions: ED Chest Pain, Uncertain Cause Prescriptions: New tramadol 50 mg tablet 50 mg PO 4X/DAY PRN PRN (Reason: pain) 3 Days Qty: 12 0RF No Action lisinopril 5 mg tablet 5 mg PO DAILY multivitamin capsule 1 cap PO DAILY furosemide 40 mg tablet 40 mg PO DAILY Qty: 90 3RF Rx Instructions: EASY OPEN BOTTLE warfarin 2 mg tablet 2.5 mg PO DAILY Protocol: Dose Management Condition: Friday Dose/Route: 2 mg Instruction: 1 x 2 mg tablet Condition: Friday Dose/Route: 2 mg Instruction: 1 x 2 mg tablet Condition: Friday Dose/Route: 2 mg Instruction: 1 x 2 mg tablet Condition: Friday Dose/Route: 2 mg Instruction: 1 x 2 mg tablet Condition: Dose/Route: 3 mg Instruction: 1.5 x 2 mg tablets Condition: Friday Dose/Route: 2 mg Instruction: 1 x 2 mg tablet Condition: Friday Dose/Route: 2 mg Instruction: 1 x 2 mg tablet Protocol Text: Adjustment Start Date: 08/10/20 INR Value: 1.4 INR Date: 08/10/20 Label Comments: PCP manages Rx Instructions: take as directed and patient request that you use the easy cap, Managed by PCP ascorbate calcium (vitamin C) 500 mg tablet 500 mg PO DAILY simvastatin 20 MG tablet 20 mg PO DAILY metoprolol succinate 25 mg tablet extended release 24 hr 25 mg PO DAILY Qty: 90 3RF Primary Care Provider: Rosemary Doran Referrals: Rosemary Doran MD [Primary Care Provider] - Activity Restrictions/Additional Instructions: Your work-up today does not show signs of heart attack or heart damage. Your Coumadin level/INR is therapeutic at 2.7. Please follow-up with your family doctor for repeat evaluation or return to the ER if you have any further concerns Disposition Disposition: Home, Self Care
--- NOTE | 2022-02-11 01:08 | RAD_ITS ---
STUDY: X-RAY CHEST REASON FOR EXAM: Female, 86 years old. Chest pain. TECHNIQUE: AP upright and lateral COMPARISON: 03/13/2021 CXR FINDINGS: Mild cardiomegaly, atherosclerosis of the thoracic aorta, and coarse interstitial prominence in both lungs all similar to prior. No evidence of pneumothorax, consolidation, or pleural effusion. Upper lumbar spine vertebral plasty and degenerative changes right greater than left shoulders again demonstrated. RAD/Chest PA and Lateral IMPRESSION: No significant change. Cardiomegaly and mild chronic interstitial prominence in both lungs similar to prior. Electronically Signed: Raad Pierson MD at 1:28 EST ,
[2022-02-11 01:09] LABS: International Normalized Ratio 2.7
[2022-02-11] MEDS: Orphenadrine 60 MG/2 ML Ampul IV (01:10)
[2022-02-11] MEDS: Ondansetron 4 MG/2 ML Vial IV (01:11)
[2022-02-11] MEDS: Morphine 4 MG/ML Syringe IV (01:11)
[2022-02-11 01:15] LABS: Anion Gap 10 (5-15); BUN 32 mg/dL (7-18); BUN/Creat Ratio 18.5 RATIO (10-20); Calcium,Total 9.1 mg/dL (8.5-10.1); Chloride 102 mmol/L (98-107); Creatinine, Serum 1.73 mg/dL (0.55-1.02); EST Glomerular Filtration Rate 30 mL/min (>60); Est Glom Filt Rate - Afr Amer 36 mL/min (>60); Estimated Creatinine Clearance 19.31 ml/min; Glucose 153 mg/dL (74-106); Magnesium 2.2 mg/dL (1.6-2.6); Potassium 3.9 mmol/L (3.5-5.1); Sodium Level 138 mmol/L (136-145); Troponin-I HS 13 pg/mL (3.0-54.0)
[2022-02-11 01:26] VITALS: BP 107/66; PULSE 78; RESP 17; O2SAT 96
[2022-02-11 02:00] VITALS: BP 106/82; PULSE 74; RESP 19; O2SAT 98
[2022-02-11 02:02] VITALS: BP 106/82; PULSE 74; RESP 16; O2SAT 96
== END 2022-02-11 02:16 | disposition home or self-care (01) ==
PROVIDERS: Emergency Provider Emergency Medicine; PCP Family Medicine; Visit Provider Emergency Medicine
DX: R07.9 Chest pain, unspecified (principal); I13.0 Hypertensive heart and chronic kidney disease with heart failure and stage 1 through stage 4 chronic kidney disease, or unspecified chronic kidney disease; I50.32 Chronic diastolic (congestive) heart failure; I48.0 Paroxysmal atrial fibrillation; I25.10 Atherosclerotic heart disease of native coronary artery without angina pectoris; E78.5 Hyperlipidemia, unspecified; N18.9 Chronic kidney disease, unspecified; I25.2 Old myocardial infarction; E66.9 Obesity, unspecified; Z86.16 Personal history of COVID-19; Z95.5 Presence of coronary angioplasty implant and graft; Z87.891 Personal history of nicotine dependence; Z79.01 Long term (current) use 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; Z79.899 Other long term (current) drug therapy
CPT/HCPCS: 71046; 80048; 83735; 84484; 85025; 85610; 93005; 96374; 96375; 99285; A4216; J2405

== ENCOUNTER → 2022-06-04 | Outpatient (CLI) | payer MEDICARE, SELFPAY ==
--- NOTE | 2022-06-04 09:00 | RAD_ITS ---
STUDY: X-RAY - THORACIC SPINE REASON FOR EXAM: Female, 86 years old. Thoracic back pain. TECHNIQUE: 2 view(s) of the thoracic spine were obtained. COMPARISON: PA and lateral chest, February 11, 2022. FINDINGS: Normal kyphosis of the thoracic spine. There is no substantial scoliosis. There is multilevel endplate spondylosis of the thoracic vertebrae. There is multilevel disc space narrowing of the thoracic spine. There is no evidence of acute fracture or loss of vertebral axial height. There is evidence of a compression deformity of L1 with vertebral augmentation. The soft tissue structures are unremarkable. RAD/Thoracic Spine 2 Views IMPRESSION: Degenerative changes of the thoracic spine. Electronically Signed: Myron Reid DO at 16:57 EST ,
== END | disposition home or self-care (01) ==
LOC: MTRAD 09:00
PROVIDERS: PCP Family Medicine; Referring Provider Nurse Practitioner Family; Visit Provider Nurse Practitioner Family
DX: M54.6 Pain in thoracic spine (principal)
CPT/HCPCS: 72070; 72072

== ENCOUNTER → 2022-06-26 | Outpatient (CLI) | payer MEDICARE, SELFPAY ==
[2022-06-26 08:01] LABS: Absolute Lymphocyte Count 2.42 X10^3/uL (0.83-4.51); Absolute Neutrophil Count 3.9 X10^3/uL (2.0-7.7); Basophil# 0.04 X10^3/uL; Basophil% 0.5 % (0-1); Eosinophil# 0.31 X10^3/uL; Eosinophils% 4.2 % (0-5); Hematocrit 41.7 % (37-47); Hemoglobin 13.5 g/dL (12.0-15.0); Lymphocyte # 2.42 X10^3/ul (0.83-4.51); Lymphocyte % 32.9 % (19-41); Mean Corp Hgb Conc 32.4 g/dL (32-36); Mean Corpuscular Hgb 29.9 pg (27.0-32.0); Mean Corpuscular Volume 92.5 fL (81-99); Mean Platelet Vol. 10.2 fl (6.2-12.0); Monocyte# 0.66 X10^3/uL; NRBC Flagged by Analyzer 0 % (0-5); Neutrophil # 3.91 X10^3/uL (2.7-7.7); Neutrophil % 53.1 % (47-70); Platelet Count 314 K/mm3 (150-450); RBC Distribution Width CV 12.9 % (11.6-14.6); RBC Distribution Width SD 43.9 fl (35.1-43.9); Red Blood Count 4.51 M/mm3 (4.2-5.4); White Blood Count 7.4 K/mm3 (4.4-11.0)
[2022-06-26 08:20] LABS: ALB/GLOB Ratio 0.9 RATIO (0.9-2.4); AST(SGOT) 15 U/L (15-37); Alanine Aminotransfer ALT/SGPT 13 U/L (13-56); Albumin, Serum 3.2 g/dL (3.2-5.0); Alkaline Phosphatase 69 U/L (45-117); Anion Gap 4 (5-15); BUN 20 mg/dL (7-18); Calcium,Total 8.8 mg/dL (8.5-10.1); Chloride 106 mmol/L (98-107); Cholesterol 163 mg/dL (200); Creatinine, Serum 1.11 mg/dL (0.55-1.02); EST Glomerular Filtration Rate 49 mL/min (>60); Est Glom Filt Rate - Afr Amer 60 mL/min (>60); Globulin 3.7 g/dL (2.2-4.2); Glucose 142 mg/dL (74-106); High Density Lipoprotein 47 mg/dL; Potassium 4.3 mmol/L (3.5-5.1); Protein, Total 6.9 g/dL (6.4-8.2); Sodium Level 139 mmol/L (136-145); Triglycerides 178 mg/dL; Very Low Density Lipoprotein 36 mg/dL (5-40)
== END | disposition home or self-care (01) ==
LOC: LAB 07:36
PROVIDERS: PCP Family Medicine; Referring Provider Family Medicine; Visit Provider Family Medicine
DX: E11.9 Type 2 diabetes mellitus without complications (principal); I25.10 Atherosclerotic heart disease of native coronary artery without angina pectoris; E78.5 Hyperlipidemia, unspecified; I10 Essential (primary) hypertension
CPT/HCPCS: 36415; 80053; 80061; 85025

== ENCOUNTER → 2022-08-08 | Outpatient (CLI) | payer MEDICARE, SELFPAY ==
[2022-08-08 12:20] LABS: Absolute Lymphocyte Count 1.97 X10^3/uL (0.83-4.51); Absolute Neutrophil Count 4.6 X10^3/uL (2.0-7.7); Basophil# 0.04 X10^3/uL; Basophil% 0.5 % (0-1); Eosinophil# 0.24 X10^3/uL; Eosinophils% 3.2 % (0-5); Hematocrit 44.5 % (37-47); Lymphocyte # 1.97 X10^3/ul (0.83-4.51); Lymphocyte % 26.2 % (19-41); Mean Corp Hgb Conc 31.5 g/dL (32-36); Mean Corpuscular Hgb 29.6 pg (27.0-32.0); Mean Corpuscular Volume 94.1 fL (81-99); Mean Platelet Vol. 10.9 fl (6.2-12.0); Monocyte# 0.66 X10^3/uL; Monocyte% 8.8 % (0-10); NRBC Flagged by Analyzer 0 % (0-5); Neutrophil # 4.57 X10^3/uL (2.7-7.7); Neutrophil % 60.9 % (47-70); Platelet Count 365 K/mm3 (150-450); RBC Distribution Width CV 13.2 % (11.6-14.6); RBC Distribution Width SD 45.5 fl (35.1-43.9); Red Blood Count 4.73 M/mm3 (4.2-5.4); White Blood Count 7.5 K/mm3 (4.4-11.0)
[2022-08-08 12:34] LABS: Vitamin B12 853 pg/mL (211-911); Vitamin D,25 Hydroxy 35.5 ng/mL
[2022-08-08 12:44] LABS: Anion Gap 6 (5-15); BUN 21 mg/dL (7-18); BUN/Creat Ratio 18.3 RATIO (10-20); Calcium,Total 9.2 mg/dL (8.5-10.1); Chloride 105 mmol/L (98-107); Creatinine, Serum 1.15 mg/dL (0.55-1.02); EST Glomerular Filtration Rate 47 mL/min (>60); Est Glom Filt Rate - Afr Amer 57 mL/min (>60); Ferritin 83 ng/mL (8-252); Glucose 147 mg/dL (74-106); Potassium 4.9 mmol/L (3.5-5.1); Sodium Level 140 mmol/L (136-145)
== END | disposition home or self-care (01) ==
LOC: BFHLAB 09:34
PROVIDERS: PCP Family Medicine; Referring Provider Family Medicine; Visit Provider Family Medicine
DX: E55.9 Vitamin D deficiency, unspecified (principal); R53.83 Other fatigue; D64.9 Anemia, unspecified
CPT/HCPCS: 36415; 80048; 82306; 82607; 82728; 85025

== ENCOUNTER → 2022-09-05 | Outpatient (CLI) | payer MEDICARE, SELFPAY ==
[2022-09-05 12:25] LABS: Absolute Lymphocyte Count 1.27 X10^3/uL (0.83-4.51); Absolute Neutrophil Count 8.3 X10^3/uL (2.0-7.7); Basophil# 0.04 X10^3/uL; Basophil% 0.4 % (0-1); Hematocrit 44.3 % (37-47); Hemoglobin 14.1 g/dL (12.0-15.0); Lymphocyte # 1.27 X10^3/ul (0.83-4.51); Lymphocyte % 12.3 % (19-41); Mean Corp Hgb Conc 31.8 g/dL (32-36); Mean Corpuscular Hgb 29.9 pg (27.0-32.0); Mean Corpuscular Volume 93.9 fL (81-99); Mean Platelet Vol. 11.2 fl (6.2-12.0); Monocyte# 0.65 X10^3/uL; Monocyte% 6.3 % (0-10); NRBC Flagged by Analyzer 0 % (0-5); Neutrophil # 8.27 X10^3/uL (2.7-7.7); Neutrophil % 79.7 % (47-70); Platelet Count 311 K/mm3 (150-450); RBC Distribution Width CV 13.2 % (11.6-14.6); RBC Distribution Width SD 45.5 fl (35.1-43.9); Red Blood Count 4.72 M/mm3 (4.2-5.4); White Blood Count 10.4 K/mm3 (4.4-11.0)
[2022-09-05 12:37] LABS: International Normalized Ratio 1.1; Prothrombin Time (Protime)PT. 13.8 SECONDS (11.7-14.9)
[2022-09-05 13:51] LABS: Anion Gap 9 (5-15); BUN 20 mg/dL (7-18); BUN/Creat Ratio 18.3 RATIO (10-20); Calcium,Total 8.8 mg/dL (8.5-10.1); Chloride 106 mmol/L (98-107); Creatinine, Serum 1.09 mg/dL (0.55-1.02); EST Glomerular Filtration Rate 50 mL/min (>60); Est Glom Filt Rate - Afr Amer 61 mL/min (>60); Glucose 202 mg/dL (74-106); Potassium 3.7 mmol/L (3.5-5.1); Sodium Level 139 mmol/L (136-145); Thyroid Stim Hormone (TSH) 2.84 uIU/mL (0.358-3.74)
== END | disposition home or self-care (01) ==
LOC: BFHLAB 10:45
PROVIDERS: PCP Family Medicine; Referring Provider Family Medicine; Visit Provider Family Medicine
DX: G45.9 Transient cerebral ischemic attack, unspecified (principal); I48.20 Chronic atrial fibrillation, unspecified; E11.9 Type 2 diabetes mellitus without complications
CPT/HCPCS: 36415; 80048; 84443; 85025; 85610

== ENCOUNTER → 2022-09-06 | Outpatient (CLI) | payer MEDICARE, SELFPAY ==
--- NOTE | 2022-09-06 08:52 | MRI_ITS ---
STUDY: MR Brain WO/W Contrast 09/06/2022 3:04 PM REASON FOR EXAM: Female, 87 years old. TIA, A FIB COMPARISON: August 11, 2020 CT head TECHNIQUE: Standardized multiplanar fat and water weighted pulse sequences were obtained. MR Brain WO/W Contrast IV 15ml clarican FINDINGS: There is mild cerebral atrophy with widening of the extra-axial spaces and ventricular dilatation. There are a limited number of small white matter hyperintensities, distributed throughout the deep white matter tracts of the cerebral hemispheres, consistent with mild chronic white matter ischemic changes. There is mild prominence of the [place], consistent with atrophy of the vermis. The cerebellar hemispheres are normal. Normal bilateral basal ganglia. Normal thalami. There is no extra-axial fluid accumulation. Normal flow voids within the major intracranial circulation suggesting patency by spin echo criteria. Normal sella turcica, pituitary gland, infundibular stalk, optic chiasm and hypothalamus. Normal tectal plate and pineal gland. Normal midbrain, doreen and medulla. Normal basal cisterns. Normal bilateral temporal bones. Normal bilateral internal auditory canals. No demonstrated orbital abnormality, within the constraints of a routine brain study. Normal visualized paranasal sinuses. Normal calvarium and skull base. Normal visualized soft tissue structures. Normal visualized upper cervical spine. Aspect score 10 MRI/Brain W/WO Contrast IMPRESSION: (NOT LISTED IN ORDER OF SIGNIFICANCE) There are no acute intracranial findings. Electronically Signed: Villa Crandall MD at 15:05 EDT ,
== END | disposition home or self-care (01) ==
LOC: MRI 08:49
PROVIDERS: PCP Family Medicine; Referring Provider Family Medicine; Visit Provider Family Medicine
DX: G45.9 Transient cerebral ischemic attack, unspecified (principal); I48.20 Chronic atrial fibrillation, unspecified; E11.9 Type 2 diabetes mellitus without complications; E78.5 Hyperlipidemia, unspecified
CPT/HCPCS: 70553; A9575

== ENCOUNTER 2022-09-08 14:24 | Emergency (ER) | payer MEDICARE, SELFPAY ==
[2022-09-08 14:26] VITALS: BP 159/94; PULSE 100; RESP 18; TEMP 36; O2SAT 98
[2022-09-08 15:32] VITALS: BMI 33.2
--- NOTE | 2022-09-08 15:32 | CT_ITS ---
STUDY: CTA HEAD AND NECK WITH CONTRAST REASON FOR EXAM: Female, 87 years old. confusion RADIATION DOSAGE (If Supplied By Facility): CTDIvol = ( 26.45 ) mGy, DLP = ( 696.22 ) mGycm TECHNIQUE: CT angiography was performed with a multi-detector CT scanner. Data acquisition was obtained from the skull base through the vertex following intravenous administration of IV 100mL [id number]-[id number]. MIP images were reconstructed from the axial data set. Post-processing of the angiographic images was performed, with multiplanar reformation and 3D reconstruction. Individualized dose optimization techniques were used for this CT. Clinical COMPARISON: MRI of the brain 09/06/2022, which showed no acute abnormalities. FINDINGS: Normal bilateral petrous carotid arteries. There is calcified plaque formation of the right cavernous carotid artery, with a moderate stenosis (50-75%). There is calcified plaque formation of the left cavernous carotid artery, with a mild stenosis (less than 50%). Normal right A1 segments of the anterior cerebral artery. Normal left A1 segments of the anterior cerebral artery. Normal intact anterior communicating artery (ACOM). Normal bilateral A2 segments of the anterior cerebral arteries. Normal right M1 and M2 segments of the middle cerebral arteries, with a normal M1 bifurcation. Normal left M1 and M2 segments of the middle cerebral arteries, with a normal M1 bifurcation. Normal right posterior communicating artery (PCOM). Normal left posterior communicating artery (PCOM). Normal bilateral vertebral arteries. Normal basilar artery with a normal basilar bifurcation. The visualized bilateral superior cerebellar (SCA) arteries are normal. Normal bilateral P1, P2 and visualized P3 segments of the posterior cerebral arteries. There is no demonstrated aneurysm of the [place]. There is no demonstrated abnormality of the visualized brain. AORTIC ARCH: Normal visualized aortic arch. Normal origins of the brachiocephalic, left common carotid, and left subclavian arteries. RIGHT CAROTID ARTERIES: There is atherosclerotic tortuous elongation of the right common carotid artery. There is mild atherosclerotic plaque formation with minimal narrowing of the right carotid bulb. There is mild atherosclerotic plaque formation of the origin of the right internal carotid artery with less than 50% cross sectional diameter stenosis. There is atherosclerotic tortuous elongation of the cervical portion of the right internal carotid artery. Normal origin of the right external carotid artery (ECA). LEFT CAROTID ARTERIES: There is atherosclerotic tortuous elongation of the left common carotid artery. Normal left common carotid bulb. There is moderate atherosclerotic plaque formation of the origin of the left internal carotid artery with an estimated stenosis of 50-69% stenosis. There is atherosclerotic tortuous elongation of the cervical portion of the left internal carotid artery. Normal origin of the left external carotid artery (ECA). VERTEBRAL ARTERIES: Normal bilateral vertebral arteries. IMPRESSION: No large vessel occlusions. No evidence of thrombi. 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 Mild to moderate grade stenosis of both proximal ICAs worse on the left. Electronically Signed: Elliot Vasquez MD at 17:25 EDT , STUDY: CT BRAIN WITHOUT CONTRAST REASON FOR EXAM: Female, 87 years old. confusion RADIATION DOSAGE (If Supplied By Facility): CTDIvol = ( 44.99 ) mGy, DLP = ( 745.49 ) mGycm TECHNIQUE: Transaxial CT imaging of the brain was performed without administration of intravenous contrast material. Individualized dose optimization techniques were used for this CT. COMPARISON: 08/11/2020 FINDINGS: Normal soft tissue structures. Normal calvarium. There is mild cerebral atrophy with widening of the extra-axial spaces and ventricular dilatation. There are areas of decreased attenuation within the white matter tracts of the supratentorial brain, consistent with microvascular disease changes. Normal basal ganglia and thalami. Normal brainstem. There is mild cerebellar atrophy. There is no intracranial hemorrhage. There are no findings of an acute ischemic infarction. Normal visualized paranasal sinuses. CT/CTA Head AND Neck W/ Contrast IMPRESSION: Chronic involutional changes of the brain. No acute abnormality seen. Electronically Signed: Elliot Vasquez MD at 17:27 EDT ,
--- NOTE | 2022-09-08 15:32 | EKG12_ITS ---
Test Reason : Blood Pressure : / mmHG Vent. Rate : 101 BPM Atrial Rate : 000 BPM P-R Int : 000 ms QRS Dur : 092 ms QT Int : 342 ms P-R-T Axes : 000 -34 016 degrees QTc Int : 443 ms Atrial fibrillation with rapid ventricular response Left axis deviation Abnormal ECG Confirmed by EUSEBIA LENNON, CHARITY ([id number]), technical writer and editor LISS PARKER ([id number]) on 09/10/2022 7:50:43 AM Referred By: Confirmed By:HALLE LAWS MD
--- NOTE | 2022-09-08 15:33 | EX.ED.DYSGE1 ---
HPI History of Present Illness Chief Complaint: Confusion Detail of Chief Complaint: Confusion Informant: patient and family Narrative Narrative: Patient presents with confusion that is been ongoing for months but worse over the last week per her son. Patient more forgetful and talking about nonsensical things. She had an MRI of her brain 2 days ago that apparently was unremarkable. She had an ultrasound of her carotids scheduled. Patient denies fever or urinary symptoms. She has no physical complaints otherwise. 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) Osteoarthritis Paroxysmal atrial fibrillation Persistent atrial fibrillation Pleural effusion on right (09/2019) Spinal stenosis Type 2 diabetes mellitus Home Medications simvastatin 20 mg tablet 20 mg PO DAILY 10/11/19 [History Last Taken Unknown] furosemide 40 mg tablet 40 mg PO DAILY #90 tabs 12/10/19 [Rx Last Taken Unknown] lisinopril 5 mg tablet 5 mg PO DAILY 12/10/19 [History Last Taken 06/21/20] multivitamin 1 cap PO DAILY 12/10/19 [History Last Taken Unknown] ascorbate calcium (vitamin C) 500 mg tablet 500 mg PO DAILY 01/31/21 [History Last Taken Unknown] warfarin 2 mg tablet 2.5 mg PO DAILY 04/20/21 [History Last Taken Unknown] tramadol 50 mg tablet 50 mg PO 4X/DAY PRN PRN pain 3 days #12 tabs 02/11/22 [Rx Last Taken Unknown] melatonin 10 mg capsule 10 mg PO HS PRN 04/16/22 [History Last Taken Unknown] metoprolol succinate 25 mg tablet,extended release 24 hr 25 mg PO BID #90 tabs 05/16/22 [Rx Last Taken Unknown] Allergy/AdvReac Type Severity Reaction Status Date / Time latex Allergy rash Verified 09/08/22 14:26 amiodarone AdvReac Severe Hair Verified 09/08/22 14:26 falling out in gobs atorvastatin [From Lipitor] AdvReac myalgia Verified 09/08/22 14:26 codeine AdvReac Nausea Verified 09/08/22 14:26 meperidine [From Demerol] AdvReac Nausea/Vom/ Verified 09/08/22 14:26 Diarrhea rosuvastatin [From Crestor] AdvReac myalgia Verified 09/08/22 14:26 Family History Father CAD (coronary artery disease) Brother CAD (coronary artery disease) Surgical History History of coronary artery stent placement (02/14/07) History of knee replacement History of kyphoplasty (~05/2020) History of left heart catheterization (12/27/19) History of left hip replacement History of radiofrequency ablation procedure for cardiac arrhythmia (2011) History of repair of rotator cuff Social History Smoking Status: Former smoker how long ago did patient quit smokin years ago alcohol intake: former substance use type: does not use caffeine: No ROS ROS ED Review of Systems ROS Unobtainable: other Constitutional Constitutional ED: Reports lethargy; Denies chills, fever(s), sweats or weight loss Eyes Eyes: Denies blurry vision, change in vision or diplopia ENT ENT ED: Denies rhinorrhea or sore throat Cardiovascular Cardiovascular: Denies chest pain, orthopnea or racing heartbeat Respiratory/Chest Respiratory/Chest: Denies cough, dyspnea, dyspnea on exertion, orthopnea or sputum Gastrointestinal Gastrointestinal: Denies abdominal pain, diarrhea, nausea or vomiting Genitourinary Genitourinary ED: Denies dysuria, hematuria or urinary frequency Musculoskeletal Musculoskeletal: Denies arthralgias, back pain, myalgias or neck pain Integumentary Denies abscess, Abrasions or rash Neurologic Neurologic: Reports other Details: Confusion, forgetfulness ; Denies headache(s) or weakness Psychiatric Psychiatric: Denies anxiety, depression or suicidal thoughts Endocrine Endocrinology: Denies polydipsia, polyphagia or polyuria Hematologic/Lymphatic Hematologic/Lymphatic: Denies easy bleeding, easy bruising or lymphadenopathy Allergic/Immunologic Allergic/Immunologic ED: Denies mouth swelling, tongue swelling or urticaria EXAM Physical Exam Narrative Exam Narrative: Patient ANO x3 Const Vital Signs: 09/08/22 14:26 09/08/22 16:03 Temperature 96.8 F L Temperature Source Temporal Pulse Rate 100 90 Respiratory Rate 18 20 H Blood Pressure 159/94 H 157/84 H Blood Pressure Mean 115 108 Pulse Ox 98 97 Oxygen Delivery Method Room Air Room Air Positive well nourished and well developed General Appearance ED: well developed and NAD HEENT Reports TM's clear and moist mucous membranes normocephalic and atraumatic; Negative for trauma or tenderness Tympanic Membrane ED: Yes TM's clear Eyes PERRL and EOMs intact bilaterally General Eye ED: Negative for pale conjunctiva or scleral icterus Neck no lymphadenopathy, supple and no JVD General: Negative for tenderness Chest Wall inspection of chest normal and palpation of chest normal Chest: Negative for tenderness Resp normal respiratory effort and clear to auscultation bilaterally Effort and Inspection: Negative for respiratory distress or pain with movement Auscultation: Negative for rhonchi, wheezes or diminished lung sounds Cardio regular rate, regular rhythm, S1 normal heart sound, S2 normal heart sound and no murmurs Peripheral Pulses: pulses 2+ throughout GI normal to inspection, nondistended, normoactive bowel sounds, soft to palpation, non-tender, non-distended and no masses Back/Spine no CVA tenderness and no thoracic nor lumbar tenderness Extremity normal to inspection General Extremety ED: Negative for edema General Extremity: Negative for edema Neuro oriented x3, CN's II-XII intact bilaterally, no sensory deficits noted and gait normal Sensorium / Orientation: awake, alert, oriented to person, oriented to place and oriented to time Motor Exam: strength 5/5 throughout and strength abnormal Psych mental status grossly normal Skin no rashes or lesions noted and no wounds MDM MDM MDM Narrative Medical decision making narrative: Patient presents with confusion that is been ongoing for months. She had a normal MRI of her brain several days ago. Patient confusion unclear although could be related to dementia or infectious etiology or metabolic etiology. Patient had an IV line established. EKG obtained on arrival showed atrial fibrillation with a rate of 101 bpm with no acute ST segment changes. Patient had an INR 1.0. CBC with differential was normal. Chemistries unremarkable. Patient states that she has taken her Coumadin daily but INR is only 1.0 here. Patient had a CTA of the head and neck that was read by radiology as no large vessel occlusions. She had moderate to high-grade stenosis of both petrous carotid arteries related to calcified plaque worse on the right. Discussed case with Dr. Saldana who is on for vascular. He would be happy to see patient in consultation in the office. This point etiology of her confusion unclear although I suspect likely may be senile dementia developing. No infectious etiology found. And no evidence of stroke on recent MRI. Nothing focal to indicate stroke. Lab Data Attestation: I reviewed the patient's lab results. Labs: Laboratory Results - last 24 hr 09/08/22 09/08/22 09/08/22 13:40 15:40 15:40 WBC 9.1 RBC 4.48 Hgb 13.4 Hct 41.4 MCV 92.4 MCH 29.9 MCHC 32.4 RDW Std Deviation 44.8 H RDW Coeff of Sumeet 13.2 Plt Count 294 MPV 10.7 Immature Gran % (Auto) 0.300 Neut % (Auto) 57.4 Lymph % (Auto) 28.5 [place] % (Auto) 11.1 H Eos % (Auto) 2.3 Baso % (Auto) 0.4 Absolute Neuts (auto) 5.2 Absolute Lymphs (auto) 2.60 Nucleated RBC % 0 PT 13.6 INR 1.0 Sodium 139 Potassium 3.8 Chloride 103 Carbon Dioxide 30.0 Anion Gap 6 BUN 18 Creatinine 1.05 H Estim Creat Clear Calc 31.23 Est GFR (MDRD) Af Amer 64 Est GFR (MDRD) Non-Af 53 L BUN/Creatinine Ratio 17.1 Glucose 78 Calcium 8.8 Total Bilirubin 0.30 AST 9 L ALT 9 L Alkaline Phosphatase 71 Troponin I High Sens 86 H Total Protein 6.9 Albumin 3.2 Globulin 3.7 Albumin/Globulin Ratio 0.9 Urine Color Urine Clarity Urine pH Ur Specific [place] Urine Protein Urine Glucose (UA) Urine Ketones Urine Occult Blood Urine Nitrite Urine Bilirubin Urine Urobilinogen Ur Leukocyte Esterase Urine RBC Urine WBC Ur Squamous Epith Cells Urine Bacteria Urine Mucus 09/08/22 17:00 WBC RBC Hgb Hct MCV MCH MCHC RDW Std Deviation RDW Coeff of Sumeet Plt Count MPV Immature Gran % (Auto) Neut % (Auto) Lymph % (Auto) [place] % (Auto) Eos % (Auto) Baso % (Auto) Absolute Neuts (auto) Absolute Lymphs (auto) Nucleated RBC % PT INR Sodium Potassium Chloride Carbon Dioxide Anion Gap BUN Creatinine Estim Creat Clear Calc Est GFR (MDRD) Af Amer Est GFR (MDRD) Non-Af BUN/Creatinine Ratio Glucose Calcium Total Bilirubin AST ALT Alkaline Phosphatase Troponin I High Sens Total Protein Albumin Globulin Albumin/Globulin Ratio Urine Color Yellow Urine Clarity Clear Urine pH 6.5 Ur Specific [place] 1.010 Urine Protein Negative Urine Glucose (UA) Normal Urine Ketones Negative Urine Occult Blood Negative Urine Nitrite Negative Urine Bilirubin Negative Urine Urobilinogen Normal Ur Leukocyte Esterase Negative Urine RBC 0 SEEN Urine WBC 0 SEEN Ur Squamous Epith Cells 0-5 SEEN Urine Bacteria 0 SEEN Urine Mucus 0 SEEN Radiography Diagnostic Testing: Clinical Impression(s) from Imaging Studies Head/Neck CTA 09/08/22 15:32 IMPRESSION: Chronic involutional changes of the brain. No acute abnormality seen. Electronically Signed: Elliot Vasquez MD at 17:27 EDT , EKG Initial EKG: Attestation: I personally reviewed and interpreted this EKG as follows: Comments: With noAtrial fibrillation with a rate of [address] segment changes Discharge Plan Triage Chief Complaint: Confusion ED Provider: Lc Barcenas Dx/Rx/DC Orders Clinical Impression: Acute confusion Instructions: ED ALOC, ED Confusion Prescriptions: No Action lisinopril 5 mg tablet 5 mg PO DAILY multivitamin capsule 1 cap PO DAILY furosemide 40 mg tablet 40 mg PO DAILY Qty: 90 3RF Rx Instructions: EASY OPEN BOTTLE warfarin 2 mg tablet 2.5 mg PO DAILY Protocol: Dose Management Condition: Friday Dose/Route: 2 mg Instruction: 1 x 2 mg tablet Condition: Friday Dose/Route: 2 mg Instruction: 1 x 2 mg tablet Condition: Friday Dose/Route: 2 mg Instruction: 1 x 2 mg tablet Condition: Friday Dose/Route: 2 mg Instruction: 1 x 2 mg tablet Condition: Dose/Route: 3 mg Instruction: 1.5 x 2 mg tablets Condition: Friday Dose/Route: 2 mg Instruction: 1 x 2 mg tablet Condition: Friday Dose/Route: 2 mg Instruction: 1 x 2 mg tablet Protocol Text: Adjustment Start Date: 08/10/20 INR Value: 1.4 INR Date: 08/10/20 Label Comments: PCP manages Rx Instructions: take as directed and patient request that you use the easy cap, Managed by PCP ascorbate calcium (vitamin C) 500 mg tablet 500 mg PO DAILY melatonin 10 mg capsule 10 mg PO HS PRN simvastatin 20 MG tablet 20 mg PO DAILY tramadol 50 mg tablet 50 mg PO 4X/DAY PRN PRN (Reason: pain) 3 Days Qty: 12 0RF metoprolol succinate 25 mg tablet extended release 24 hr 25 mg PO BID Qty: 90 3RF Primary Care Provider: Rosemary Doran Referrals: Mo Saldana MD [Med Staff - Active Staff] - 3-5 Days Rosemary Doran MD [Primary Care Provider] - Disposition Disposition: Home, Self Care
[2022-09-08] MEDS: 0.9% Normal Saline 1,000 ML 150 ML IV (15:45)
[2022-09-08 15:47] LABS: Absolute Neutrophil Count 5.2 X10^3/uL (2.0-7.7); Basophil# 0.04 X10^3/uL; Basophil% 0.4 % (0-1); Eosinophil# 0.21 X10^3/uL; Eosinophils% 2.3 % (0-5); Hematocrit 41.4 % (37-47); Hemoglobin 13.4 g/dL (12.0-15.0); Lymphocyte % 28.5 % (19-41); Mean Corp Hgb Conc 32.4 g/dL (32-36); Mean Corpuscular Hgb 29.9 pg (27.0-32.0); Mean Corpuscular Volume 92.4 fL (81-99); Mean Platelet Vol. 10.7 fl (6.2-12.0); Monocyte# 1.01 X10^3/uL; Monocyte% 11.1 % (0-10); NRBC Flagged by Analyzer 0 % (0-5); Neutrophil # 5.24 X10^3/uL (2.7-7.7); Neutrophil % 57.4 % (47-70); Platelet Count 294 K/mm3 (150-450); RBC Distribution Width CV 13.2 % (11.6-14.6); RBC Distribution Width SD 44.8 fl (35.1-43.9); Red Blood Count 4.48 M/mm3 (4.2-5.4); White Blood Count 9.1 K/mm3 (4.4-11.0)
[2022-09-08 16:03] VITALS: BP 157/84; PULSE 90; RESP 20; O2SAT 97
[2022-09-08 16:06] LABS: ALB/GLOB Ratio 0.9 RATIO (0.9-2.4); AST(SGOT) 9 U/L (15-37); Alanine Aminotransfer ALT/SGPT 9 U/L (13-56); Albumin, Serum 3.2 g/dL (3.2-5.0); Alkaline Phosphatase 71 U/L (45-117); Anion Gap 6 (5-15); BUN 18 mg/dL (7-18); BUN/Creat Ratio 17.1 RATIO (10-20); Calcium,Total 8.8 mg/dL (8.5-10.1); Chloride 103 mmol/L (98-107); Creatinine, Serum 1.05 mg/dL (0.55-1.02); EST Glomerular Filtration Rate 53 mL/min (>60); Est Glom Filt Rate - Afr Amer 64 mL/min (>60); Estimated Creatinine Clearance 31.23 ml/min; Globulin 3.7 g/dL (2.2-4.2); Glucose 78 mg/dL (74-106); Potassium 3.8 mmol/L (3.5-5.1); Protein, Total 6.9 g/dL (6.4-8.2); Sodium Level 139 mmol/L (136-145); Troponin-I HS 86 pg/mL (3.0-54.0)
[2022-09-08 16:29] LABS: Prothrombin Time (Protime)PT. 13.6 SECONDS (11.7-14.9)
[2022-09-08 17:07] LABS: Bacteria 0 SEEN /hpf (None Seen); Mucous, Urine 0 SEEN /hpf (<or=2+); Red Blood Cells-Urine 0 SEEN /hpf (0-5); White Blood Cells 0 SEEN /hpf (0-5)
[2022-09-08 17:09] LABS: Color, Urine Yellow (Yellow); Glucose, Dipstick Normal (Normal); Ketone-Dipstick Negative (Negative); Leukocyte Esterase-Dipstick Negative /ul (Negative); Nitrite-Dipstick Negative (Negative); Occult Blood-Urine Negative /ul (Negative); Protein-Dipstick Negative (Negative); Urine Bilirubin Dipstick Negative (Negative); Urine Clarity Clear (Clear); Urine Urobilinogen Normal (Normal); Urine pH 6.5 (5.0 - 8.0)
[2022-09-08 17:15] LABS: Squamous Epithelial Cells - UA 0-5 SEEN /hpf (5-10)
--- NOTE | 2022-09-08 19:51 | ED.RN ---
09/08/22@3140- PT PUT CALL LIGHT ON FOR HELP TO BATHROOM. AFTER ENTERING ROOM PT STATED, IT'S ABOUT TIME I'M GOING TO PEE MY PANTS. THIS NURSE TOLD THE PT THAT HER LIGHT FOR HELP JUST WENT OFF AND THAT I WOULD GET HER TO THE BATHROOM ABBIE. AFTER GETTING PT UNHOOKED FROM MONITOR BOTH ER BATHROOMS WERE BEING USED. PT GRABBED HER PANTS, CROSSED HER LEGS AND LEANED UP AGAINST THE WALL AND SAID I'M NOT GOING TO BE ABLE TO HOLD IT. I'M GOING TO PEE RIGHT HERE. THIS NURSE HELPED PT QUICKLY POSSIBLE TO BACK ORTEGA BATHROOM AFTER IT OPENED UP. WHILE IN BATHROOM PT STARTING PEEING STANDING UP AND STARTED YELLING, IF YOU WANT A URINE SAMPLE YOU BETTER HURRY. BEFORE THIS NURSE COULD GET LID TO TOILET UP PT'S PURSE SLIDE OFF HER ARM AND ALMOST WENT IN THE TOILET AND THIS NURSE INFORMED HER NEXT TIME SHE COULD LEAVE HER PURSE IN THE ROOM TO MAKE IT EASIER. THIS NURSE TOLD THE PT I NEEDED GLOVES FIRST BUT STILL ATTEMPTED TO COLLECT SAMPLE. PT STATED TO THIS NURSE, I'M NOT DIRTY YOU DON'T NEED GLOVES. 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 THIS NURSE STATED EVERYTHING THESE DAYS SHOULD BE COLLECTED WITH GLOVES. PT WAS THEN OFFERED DRY CLOTHES AND HELP WITH CLEANING UP. AT THIS TIME URINE SAMPLE WAS GIVEN TO JAYME JERRY AND THIS NURSE INFORMED HER THAT THE PT WAS BEING UNKIND.THIS NURSE THEN GOT PT PAPER PANTS, WARM WIPES AND ATTENDS AND HEADED INTO BATHROOM TO ASSIST PT. PT GOT EXTREMELY UPSET WHEN THIS NURSE TRIED TO PUT ATTENDS ON. PT STATED, THIS ISN'T NECESSARY. THERE WON'T BE ANOTHER INCONTINENT EPISODE IF YOU HURRY NEXT TIME. PT THEN RIPPED ATTENDS OFF AND TOSSED THEM ON THE FLOOR. THIS NURSE TOLD THE PT SHE WAS SORRY TO OFFEND HER BUT ALL WE HAVE IS ATTENDS AND HER CLOTHES WERE SOILED. PT THEN KEPT PULLING AWAY FROM NURSE SO THIS NURSE STEPPED OUT TO GIVE PT A SECOND. AT THIS TIME I TOLD JAYME JERRY SHE MIGHT HAVE TO COME HELP PT AND EXPLAINED SHE WAS BEING UNKIND. THIS NURSE ATTEMPTED TO HELP PT AGAIN IN BATHROOM BUT PT TOLD THIS NURSE, YOU SHOULD NOT BE APART OF THIS PROFESSION AND STATED HOW STUPID THIS NURSE IS. AT THIS TIME THIS NURSE TOLD THE PT HER PRIMARY NURSE JAYME JERRY WOULD COME HELP PT AND MAKE SURE SHE GETS BACK TO HER ROOM. JAYME JERRY INFORMED OF SITUATION AND IMMEDIATELY WENT TO BATHROOM TO ASSIST PT.
== END 2022-09-08 18:24 | disposition home or self-care (01) ==
PROVIDERS: Emergency Provider Emergency Medicine; PCP Family Medicine; Visit Provider Emergency Medicine
DX: R41.0 Disorientation, unspecified (principal); I50.32 Chronic diastolic (congestive) heart failure; I13.0 Hypertensive heart and chronic kidney disease with heart failure and stage 1 through stage 4 chronic kidney disease, or unspecified chronic kidney disease; E11.22 Type 2 diabetes mellitus with diabetic chronic kidney disease; N18.9 Chronic kidney disease, unspecified; E78.5 Hyperlipidemia, unspecified; I25.10 Atherosclerotic heart disease of native coronary artery without angina pectoris; Z87.891 Personal history of nicotine dependence; Z79.01 Long term (current) use 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; I25.2 Old myocardial infarction; Z95.5 Presence of coronary angioplasty implant and graft; Z96.659 Presence of unspecified artificial knee joint; Z96.642 Presence of left artificial hip joint
CPT/HCPCS: 70496; 70498; 80053; 81001; 84484; 85025; 85610; 93005; 96360; 99284; J7030; Q9967; A4216

== ENCOUNTER → 2022-09-13 | Outpatient (CLI) | payer MEDICARE, SELFPAY ==
[2022-09-13 13:45] LABS: International Normalized Ratio 1.5; Prothrombin Time (Protime)PT. 18.1 SECONDS (11.7-14.9)
== END | disposition home or self-care (01) ==
LOC: LAB 12:16
PROVIDERS: PCP Family Medicine; Referring Provider Family Medicine; Visit Provider Family Medicine
DX: Z79.01 Long term (current) use 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 (principal)
CPT/HCPCS: 36415; 85610

== ENCOUNTER → 2022-09-18 | Outpatient (CLI) | payer MEDICARE, SELFPAY ==
[2022-09-18 12:35] LABS: International Normalized Ratio 1.8; Prothrombin Time (Protime)PT. 20.9 SECONDS (11.7-14.9)
[2022-09-20 16:09] LABS: Free Kappa Light Chains 27.3 mg/L (3.3-19.4); Free Lambda Light Chains 15.7 mg/L (5.7-26.3); Vitamin B1, Thiamine 111.8 nmol/L (66.5-200.0)
== END | disposition home or self-care (01) ==
LOC: BFHLAB 07:59 → MTLAB 10:06
PROVIDERS: PCP Family Medicine; Referring Provider Psychiatry & Neurology Neurology; Visit Provider Psychiatry & Neurology Neurology
DX: R41.0 Disorientation, unspecified (principal); F03.90 Unspecified dementia, unspecified severity, without behavioral disturbance, psychotic disturbance, mood disturbance, and anxiety; I48.0 Paroxysmal atrial fibrillation; G62.9 Polyneuropathy, unspecified
CPT/HCPCS: 36415; 82746; 83883; 84425; 85610; 87077; 87086; 87088; 87186

== ENCOUNTER → 2022-09-26 | Outpatient (CLI) | payer MEDICARE, SELFPAY ==
--- NOTE | 2022-09-26 13:06 | CDU_ITS ---
Reason For Study: TIA Rt. Velocities/BP Lt. Velocities/BP Prox CCA 51.3/10.7 cm/sec. Prox CCA 46.6/8.8 cm/sec. Mid CCA 51.3/14.5 cm/sec. Mid CCA 42.8/9.7 cm/sec. Dist CCA 35.2/7.8 cm/sec. Dist CCA 37.1/11.6 cm/sec. Prox ICA 39/10.7 cm/sec. Prox ICA 27.9/9.2 cm/sec. Mid ICA 45.6/15.4 cm/sec. Mid ICA 64/24.2 cm/sec. Dist ICA 55.1/18.2 cm/sec. Dist ICA 58.1/14.7 cm/sec. Rt. ICA/CCA = 1.07. Lt. ICA/CCA = 1.50. Prox ECA 59.8 cm/sec. Prox ECA 45.6 cm/sec. Rt. Vert. 26.7/7.8 cm/sec. Lt. Vert. 29.4/9.5 cm/sec. Right Extracranial There is homogeneous, smooth atherosclerotic plaque noted in the right common carotid artery. There is heterogeneous, irregular atherosclerotic plaque noted in the right internal carotid artery. There is homogeneous, smooth atherosclerotic plaque noted in the right external carotid artery. Antegrade flow is noted in the right vertebral artery. Left Extracranial There is homogeneous, smooth atherosclerotic plaque noted in the left common carotid artery. There is heterogeneous, irregular atherosclerotic plaque noted in the left internal carotid artery. There is homogeneous, smooth atherosclerotic plaque noted in the left external carotid artery. Antegrade flow is noted in the left vertebral artery. Procedure Carotid Duplex 50059. This is a Carotid Duplex examination using B-mode, color flow and specral Doppler. Exam performed in department. VL/Carotid Duplex Ultrasound Interpretation Summary Mild (<50%) stenosis right extracranial internal carotid. Mild (<50%) stenosis left extracranial internal carotid. Patent and antegrade vertebrals bilaterally. Ordering Physician: Anant Becerril Referring Physician: Rosemary Doran Performed By: Ruth Ann Benson RVT
--- NOTE | 2022-09-26 13:06 | ART_ITS ---
Reason For Study: Absent pedal pulses Procedure A bilateral lower extremity continuous wave Doppler with analog waveform analysis and ankle brachial indexes. Left Segmental Pressures Left brachial= 134mmHg. Left posterior tibial artery = 136mmHg. Left dorsalis pedis artery = 138mmHg. Left digit = 88 mmHg. The left dorsalis pedis waveforms are biphasic. The left posterior tibial artery waveforms are biphasic. Right Segmental Pressures Right brachial= 138mmHg. Right posterior tibial artery = 110mmHg. Right dorsalis pedis artery = 124mmHg. Right digit = 63 mmHg. The right dorsalis pedis waveforms are biphasic. The right posterior tibial artery waveforms are biphasic. Indices The right ankle brachial index by the dorsalis pedis is 0.90. The right ankle brachial index by the posterior tibial artery is 0.80. The right digital-brachial index is 0.46. The left ankle brachial index by the dorsalis pedis is 1.00. The left ankle brachial index by the posterior tibial artery is 0.99. The left digital-brachial index is 0.64. VL/Ankle Brachial Index Interpretation Summary Right J CARLOS 0.9, mild arterial insufficiency. Doppler/PVR waveforms of the right ankle mildly diminished at rest. Left J CARLOS 1, normal. Doppler/PVR waveforms of the left ankle normal at rest. TBI diminished, pedal/digit disease vs spasm. Ordering Physician: Anant Becerril Referring Physician: Rosemary Doran Performed By: Ruth Ann Benson RVT
== END | disposition home or self-care (01) ==
PROVIDERS: PCP Family Medicine; Referring Provider Psychiatry & Neurology Neurology; Visit Provider Psychiatry & Neurology Neurology
DX: I65.22 Occlusion and stenosis of left carotid artery (principal); R09.89 Other specified symptoms and signs involving the circulatory and respiratory systems
CPT/HCPCS: 93880; 93922

== ENCOUNTER 2022-10-22 09:52 | Outpatient (RCR) | payer MEDICARE, SELFPAY ==
--- NOTE | 2022-10-22 10:57 | HP.PTEVAL ---
Patient's Visit Information Visit Information Visit Information: EZRA GONZALEZ is a 87 year old F referred to Physical Therapy by Dr. Anant Becerril MD with a diagnosis of Lumbar Compression Fracture. Date of Evaluation: 10/22/22 Physical Therapist: María Crane DPT Visit Plan Frequency: 2x /Week Duration: 4 Weeks Plan: GENTLE! Focus on core strength/stabilization- endurance and balance HEP Given IE: Posture, Seated marching, Seated hip add, seated TA contraction, seated scapular retraction Subjective Subjective: Patient reports she fell 2 years ago and broke L2- she went to [facility]- ended up in bed for 6 weeks- finally got up and moving on her own. We are now 2 years later she can bathe, dress and stand for no more than 8 minutes without pain. She just moved into [place] 2 weeks ago so she has help with anything that she needs. 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 The MD had suggested PT and her son made her come. If she does not stand more than 8 min she does not have pain- and can go the whole day. She does not want to be here and is scared that its going to put her in a situation that is painful. She is currently using a rollator when she is out of her room but does not use any AD in her room. When she gets the pain its right along the L2 area. Does not radiate- describes the pain dull and achy- she can feel it coming and then she needs to sit down. As soon as she sits down the pain goes away. She sits in a recliner and could stay in that all the time. She does feel that her legs have some weakness. She goes up step recip with a HR or a cane to steady her but she does not have to do them anymore. She has had many falls- the last one was in the last 3 months. PMHx/Meds: see cardiology visit 10/15/22 Objective Objective: Posture: FH, RS- can correct with verbal cues but is unable to maintain in both sitting and standing Gait: forward posture- rollator- slow diana Endurance: poor HR/TR: able with UE A SLS: weight shift but unable to SLS Sit to Stand: requires UE A to rise from chair Sensation: WNL to gross touch bilateral LE ROM: Lumbar: Flexion: hands to knees, Extn: neutral SB: WFL but does report discomfort Rot: dec by 50 no discomfort. Strength: Core: poor Hip: 4-/5 throughout bilateral, Knee: 4+/5, Ankle: 5/5. Palpation: not tender to touch throughout paraspinals Flex: HS: mod, Gastroc: mod Balance/Special Test Scores Functional Gait Assessment Score: 12 % Disability: 60.0000 Lower Extremity Functional Score: 39 Goals Goal 1:: Patient will be I with HEP and progression Goal Time Frame: 4-6 Weeks Goal 2:: Patient will stand for >8 min without pain Goal Time Frame: 4-6 Weeks Goal 3:: Patient will increase FGA to 35/40 to increase safety Goal Time Frame: 4-6 Weeks Goal 4:: Patient will report 80% improvement Goal Time Frame: 4-6 Weeks Rehabilitation Potential Physical Therapy Diagnosis: Patient presents with hypomobility- she has decreased core strength/stabilization, flex and muscular endurance leading to poor posture and decreased ability to stand for long periods of time to perform ADL's. Rehabilitation Potential: Fair Anticipated Interventions Patient/Client Instruction: Educate patient on: Benefits of Fitness Program Therapeutic Exercise to Include: Strength training, Endurance training, Balance training, Agility training, Body mechanics, Postural training, Flexibilty training, Gait and locomotor training, Neuromotor development, Dynamic Lumbar Stabilization and Scapular Strength/Stabilization For the Purpose of:: To improve muscle performance and motor function Text: Thank you for the opportunity to evaluate your patient. For Medicare and Medicare HMO plans, please review the plan of care and approve it. It will need to be FAXED BACK to us at [phone] for Medicare purposes. For Medicare only, by signing this I certify the plan of care. Please let me know if there are questions or concerns regarding this plan of care. Physician Signature: Date:
--- NOTE | 2022-12-12 13:40 | HP.PT.NRP ---
Patient Information Patient Information: EZRA GONZALEZ was seen in my office for initial evaluation on 10/22/22. The following Plan of Care was established for this patient: POC Established Initial Frequency: 2x /Week Initial Duration: 4 Weeks Anticipated Interventions Patient/Client Instruction: Educate patient on: Benefits of Fitness Program Therapeutic Exercise to Include: Strength training, Endurance training, Balance training, Agility training, Body mechanics, Postural training, Flexibilty training, Gait and locomotor training, Neuromotor development, Dynamic Lumbar Stabilization and Scapular Strength/Stabilization For the Purpose of:: To improve muscle performance and motor function Last Seen Last Seen: This patient was last seen in our office . Pertinent comments regarding their Physical therapy will appear below: Patient did not attend therapy after IE- appropriate to be d/c and return to MD for further evaluation PRN. At this point I will be discontinuing this patient from physical therapy. I would be happy to see this patient again in the future if found appropriate by the physician. Thank you! María Crane, SRINIVASANT Balance/Gait/Functional tests Balance/Special Test Scores Functional Gait Assessment Score: 12 % Disability: 60.0000 Lower Extremity Functional Score: 39
== END 2022-10-22 19:00 | disposition home or self-care (01) ==
LOC: PT 09:52
PROVIDERS: PCP Family Medicine; Referring Provider Psychiatry & Neurology Neurology; Visit Provider Psychiatry & Neurology Neurology
DX: S32.000D Wedge compression fracture of unspecified lumbar vertebra, subsequent encounter for fracture with routine healing (principal); G62.9 Polyneuropathy, unspecified; R26.9 Unspecified abnormalities of gait and mobility
CPT/HCPCS: 97110; 97162

== ENCOUNTER → 2022-10-23 | Outpatient (CLI) | payer MEDICARE, SELFPAY ==
--- NOTE | 2022-10-23 08:30 | MRI_ITS ---
INDICATION: Gait disorder; cervical spinal stenosis EXAMINATION: MRI - MR Spine Cervical W/O Contrast TECHNIQUE: Multiplanar and multisequence MR images of the cervical spine were performed. IV Contrast Dosage and Agent: None. COMPARISON: None. FINDINGS: No acute abnormal bone marrow or soft tissue signal. No fracture or subluxation. Severe spondylosis and degenerative disc disease. Moderate facet arthrosis. Near complete fusion of the C4, C5 and C6 vertebral bodies and the C7-T1 vertebral bodies. C2-C3: Unremarkable. C3-C4: Small posterior disc osteophyte complex. Mild central canal stenosis. Mild right and mild to moderate left neural foraminal narrowing. C4-C5: Small posterior disc osteophyte complex with mild central canal stenosis. Moderate to severe left and [id number] right neural foraminal narrowing. C5-C6: Posterior disc osteophyte complex with moderate central canal stenosis. Moderate to severe left and [id number] right neural foraminal narrowing. C6-C7: Small posterior disc osteophyte complex. Mild to moderate central canal stenosis. Moderate right and moderate to severe left neural foraminal narrowing. C7-T1: Mild central canal stenosis. No significant neural foraminal narrowing. CERVICAL SPINAL CORD: Unremarkable. No evidence of myelomalacia. No syrinx. CRANIOCERVICAL JUNCTION: Unremarkable. SOFT TISSUES: Unremarkable. MRI/Spine Cervical (Routine) IMPRESSION: Degenerative changes with varying degrees of central canal stenosis and neural foraminal narrowing as described above. Cervical spinal cord appears normal. Electronically Signed: Sy Osuna DO at 4:32 EDT ,
--- NOTE | 2022-10-23 08:30 | MRI_ITS ---
INDICATION: Low back pain; old L1 compression Fx; gait d/o EXAMINATION: MRI - MR Spine Lumbar W/O Contrast TECHNIQUE: Multiplanar and multisequence MR images of the lumbar spine. IV Contrast Dosage and Agent: None. COMPARISON: 05/03/2021 MRI. FINDINGS: Stable chronic compression fracture of the L1 vertebral body. Moderate to severe spondylosis, degenerative disc disease and facet arthrosis. No acute abnormal bone marrow or soft tissue signal. No acute fracture or subluxation. L1-L2: Moderate to severe bilateral neural foraminal narrowing. Posterior disc osteophyte complex in combination with facet arthrosis and ligamentum flavum hypertrophy results in moderate central canal stenosis. L2-L3: Small disc osteophyte complex in combination with facet arthrosis and ligamentum flavum hypertrophy results in mild central canal stenosis. Moderate bilateral neural foraminal narrowing. L3-L4: Small posterior disc osteophyte complex with mild central canal stenosis. Moderate to severe bilateral neural foraminal narrowing. L4-L5: Small posterior disc osteophyte complex in combination with facet arthrosis and ligamentum flavum particular results in [id number] central canal stenosis. Moderate to severe right and severe left neural foraminal narrowing. L5-S1: Facet arthrosis and ligamentum flavum hypertrophy results in mild central canal stenosis. Moderate bilateral neural foraminal narrowing. CONUS MEDULLARIS/CAUDA EQUINA: Unremarkable. SOFT TISSUES: Unremarkable. MRI/Spine Lumbar (Routine) IMPRESSION: 1. Severe degenerative changes with varying degrees of central canal stenosis and neural foraminal narrowing as described above. 2. Stable chronic compression fracture of L1. Electronically Signed: Sy Osuna DO at 4:00 EDT ,
== END | disposition home or self-care (01) ==
LOC: MRI 07:53
PROVIDERS: PCP Family Medicine; Referring Provider Psychiatry & Neurology Neurology; Visit Provider Psychiatry & Neurology Neurology
DX: M48.061 Spinal stenosis, lumbar region without neurogenic claudication (principal); S32.000A Wedge compression fracture of unspecified lumbar vertebra, initial encounter for closed fracture; M48.02 Spinal stenosis, cervical region; R26.9 Unspecified abnormalities of gait and mobility
CPT/HCPCS: 72141; 72148

== ENCOUNTER 2022-11-14 11:01 | Observation (INO) | payer MEDICARE, SELFPAY ==
[2022-11-14] VITALS (11 sets, daily range): BP systolic 138–179; BP diastolic 61–107; PULSE 64–88; RESP 14–16; TEMP 36.3–36.6; O2SAT 95–98; BMI 33.7; BMI 32.2
--- NOTE | 2022-11-14 11:06 | NURSING ---
1100 STROKE ALERT CALLED
--- NOTE | 2022-11-14 11:07 | CT_ITS ---
HISTORY: Neuro deficit, acute, stroke suspected. TECHNIQUE: [place] of [place]/head and carotid CT angiogram protocol was performed after the intravenous administration of 100 mL Isovue 370. NASCET criteria using the distal ICAs for comparison were used for evaluation of stenoses. 3D reconstructions were reviewed. A radiation dose optimization technique was used for this scan. 1949 images. COMPARISON: 09/08/2022. FINDINGS: AORTIC ARCH AND BRANCHES: Mild atherosclerosis. Chronic tortuosity and focal narrowing of the left subclavian artery. Bovine arch configuration. Tortuous proximal left common carotid artery. RIGHT CCA: No occlusion, significant stenosis or dissection. Tortuous proximally. Minimal atherosclerosis of the bifurcation. RIGHT ICA: No occlusion, significant stenosis or dissection. Mild stenosis of the origin. LEFT CCA: No occlusion, significant stenosis or dissection. LEFT ICA: Mild less than 50% stenosis proximally. No occlusion, significant stenosis or dissection. RIGHT VERTEBRAL ARTERY: No occlusion, significant stenosis or dissection. LEFT VERTEBRAL ARTERY: No occlusion, significant stenosis or dissection. Mild calcified plaque at the origin with tortuosity proximally. ICAs: No significant stenosis at the intracranial/visualized segments. L5 plaque at both carotid siphons. ACAs: No significant stenosis at the visualized segments. MCAs: No significant stenosis at the visualized segments. recreation therapist: No significant stenosis at the visualized segments. Chronic narrowing on the left. BASILAR ARTERY: No significant stenosis. VERTEBRAL ARTERIES: Dominant intracranial left vertebral artery with mild calcified plaque. No significant stenosis at the intradural/visualized segments. No evidence of intracranial aneurysm or vascular malformation. CT/STROKE CTA Head AND Neck W/Con IMPRESSION: No evidence for significant stenosis or occlusion in the carotid or vertebral arteries of the neck. No evidence for large vessel occlusion the [place] region. N.B. : The above Results were Read Back by Ban Avila MD to Neri Mitchell MD, and understanding confirmed on 11/14/2022 11:41:26 (ET). Electronically Signed: Ban Avila MD at 11:41 EDT ,
--- NOTE | 2022-11-14 11:07 | EKG12_ITS ---
Test Reason : POSS STROKE Blood Pressure : / mmHG Vent. Rate : 086 BPM Atrial Rate : 000 BPM P-R Int : 000 ms QRS Dur : 092 ms QT Int : 366 ms P-R-T Axes : 000 -38 021 degrees QTc Int : 437 ms Atrial fibrillation Left axis deviation Abnormal ECG Confirmed by RANI GRAVES ([id number]), medical editor BAUTISTA GREEN ([id number]) on 11/19/2022 8:32:42 AM Referred By: Confirmed By:RANI GRAVES
--- NOTE | 2022-11-14 11:07 | CT_ITS ---
We are attempting to reach an attending provider to discuss findings. An addendum with communication details will be sent when the communication is complete. HISTORY: Neuro deficit, acute, stroke suspected. TECHNIQUE: Multiple axial images were obtained of the head without intravenous contrast. A radiation dose optimization technique was used for this scan. 240 images. COMPARISON: 09/08/2022. FINDINGS: BRAIN PARENCHYMA: Multiple foci and zones of low attenuation in the bilateral cerebral white matter compatible with chronic small vessel ischemic gliosis. No acute intra-axial hemorrhage identified. CSF SPACES: Generalized volume loss. No midline shift or other significant mass effect. No acute extra-axial hemorrhage seen. OTHER: Intact calvarium. No significant air fluid levels in the paranasal sinuses or mastoid air cells. Unremarkable orbits. ASPECTS Score for Acute Strokes: 10 CT/STROKE Brain/Head without Cont IMPRESSION: No acute intracranial process identified. Moderate chronic involutional and white matter changes. Electronically Signed: Ban Avila MD at 11:23 EDT ,
--- NOTE | 2022-11-14 11:07 | ED.VIS.STROK ---
HPI History of Present Illness Chief Complaint: Stroke Alert Informant: patient Narrative Narrative: Patient seen around 11 AM, last known well 829, she was seen at breakfast at assisted living doing just fine. Her significant other was with her when this occurred, she started having weakness on the right side according to report, along with trouble speaking. She denies having any weakness or tingling right now. She denies a headache. She is on warfarin has history of TIAs. 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) Osteoarthritis Paroxysmal atrial fibrillation Persistent atrial fibrillation Pleural effusion on right (09/2019) Spinal stenosis Type 2 diabetes mellitus Home Medications simvastatin 20 mg tablet 20 mg PO DAILY 10/11/19 [History Last Taken Unknown] lisinopril 5 mg tablet 5 mg PO DAILY 12/10/19 [History Last Taken 06/21/20] multivitamin 1 cap PO DAILY 12/10/19 [History Last Taken Unknown] ascorbate calcium (vitamin C) 500 mg tablet 500 mg PO DAILY 01/31/21 [History Last Taken Unknown] melatonin 10 mg capsule 10 mg PO HS PRN 04/16/22 [History Last Taken Unknown] metoprolol succinate 25 mg tablet,extended release 24 hr 25 mg PO BID #90 tabs 05/16/22 [Rx Last Taken Unknown] donepezil 10 mg tablet 10 mg PO QHS #30 tabs 09/18/22 [Rx Last Taken Unknown] donepezil 5 mg tablet 5 mg PO QHS #30 tabs 09/18/22 [Rx Last Taken Unknown] warfarin 2.5 mg tablet 2.5 mg PO DAILY 10/15/22 [History Last Taken Unknown] Allergy/AdvReac Type Severity Reaction Status Date / Time latex Allergy rash Verified 10/15/22 09:31 amiodarone AdvReac Severe Hair Verified 10/15/22 09:31 falling out in gobs atorvastatin [From Lipitor] AdvReac myalgia Verified 10/15/22 09:31 codeine AdvReac Nausea Verified 10/15/22 09:31 meperidine [From Demerol] AdvReac Nausea/Vom/ Verified 10/15/22 09:31 Diarrhea rosuvastatin [From Crestor] AdvReac myalgia Verified 10/15/22 09:31 Family History Father CAD (coronary artery disease) Brother CAD (coronary artery disease) Surgical History History of coronary artery stent placement (02/14/07) History of knee replacement History of kyphoplasty (~05/2020) History of left heart catheterization (12/27/19) History of left hip replacement History of radiofrequency ablation procedure for cardiac arrhythmia (2011) History of repair of rotator cuff Social History Smoking Status: Former smoker how long ago did patient quit smokin years ago alcohol intake: former substance use type: does not use caffeine: No ROS ROS ED Constitutional Constitutional ED: Denies chills or fever(s) Eyes Eyes: Denies change in vision or diplopia ENT ENT ED: Denies rhinorrhea or sore throat Cardiovascular Cardiovascular: Denies chest pain or palpitations Respiratory/Chest Respiratory/Chest: Denies cough or dyspnea Gastrointestinal Gastrointestinal: Denies abdominal pain, diarrhea, nausea or vomiting Genitourinary Genitourinary ED: Denies dysuria or hematuria Musculoskeletal Musculoskeletal: Denies back pain or neck pain Integumentary Denies abscess or rash Neurologic Neurologic: Reports as per HPI, abnormal speech and weakness; Denies headache(s) or paresthesias Psychiatric Psychiatric: Denies anxiety or suicidal thoughts EXAM Physical Exam Const Vital Signs: 11/14/22 11:02 11/14/22 11:01 11/14/22 11:07 Temperature 97.8 F 97.8 F Temperature Source Temporal Temporal Pulse Rate 88 87 Respiratory Rate 14 14 Blood Pressure 171/107 H 171/101 H Blood Pressure Mean 128 124 Pulse Ox 95 95 Oxygen Delivery Method Room Air Room Air Room Air 11/14/22 11:07 11/14/22 11:37 Temperature 97.6 F L 97.6 F L Temperature Source Temporal Temporal Pulse Rate 86 87 Respiratory Rate 14 14 Blood Pressure 138/96 H 150/71 H Blood Pressure Mean 110 97 Pulse Ox 98 98 Oxygen Delivery Method Room Air Room Air Positive well nourished and well developed General Appearance ED: well developed and NAD HEENT Reports moist mucous membranes normocephalic and atraumatic Eyes PERRL and EOMs intact bilaterally Neck full ROM and supple Resp normal respiratory effort and clear to auscultation bilaterally Cardio Rate: Negative for tachycardic Rhythm: abnormal rhythm irregularly irregular GI non-tender and non-distended Auscultation: normoactive bowel sounds Palpation: soft Back/Spine no CVA tenderness General Back: other FROM Extremity normal to inspection General Extremety ED: Negative for edema, pulses abnormal or tenderness General Extremity: Negative for edema or pulses abnormal Neuro oriented x3, CN's II-XII intact bilaterally and no sensory deficits noted Neuro Narrative: Aphasic. Follows commands. Carey Coma Scale: document GCS findings Spontaneous Obeys Commands Oriented 15 Sensorium / Orientation: awake and alert Motor Exam: strength 5/5 throughout Psych mental status grossly normal Skin no rashes or lesions noted and no wounds NIHSS NIHSS Initial: 1a Level of Consciousness: 0 1b LOC Questions (Score 2 if aphasic/stupor): 1 1c LOC Commands (Only score 1st attempt): 0 2 Best Gaze (If aphasic, use reflexive mvmts.): 0 3 Visual: 0 4 Facial Palsy: 0 5 Motor Arm Right (UN = amputation/fusion): 0 5 Motor Arm Left: 0 6 Motor Leg Right: 0 6 Motor Leg Left: 0 7 Limb ataxia (Only + if out of proportion): 0 8 Sensory (Aphasia/stupor=0 or 1, coma=2): 0 9 Best Language: 2 10 Dysarthria (mute, coma=2, intubated=UN): 0 11 Extinction and Inattention (only scored if +): 0 Total Score: 3 MDM MDM MDM Narrative Medical decision making narrative: Stroke alert was called, her plain CT was negative the CTA was negative for LVO, her INR is 1.8, since she is above 1.7 she is not a candidate for thrombolytics. When I reevaluated her while the stroke neurologist was evaluating her, her aphasia is resolved and she feels completely better and she is able to speak normally now. Her NIHSS is 0 and reevaluation. Consistent with TIA. Plan is for admission, no need for transfer and again not a thrombolytic candidate. Lab Data Attestation: I reviewed the patient's lab results. Labs: Laboratory Results - last 24 hr 11/14/22 11/14/22 11:04 11:10 WBC 9.4 RBC 4.79 Hgb 14.3 Hct 44.8 MCV 93.5 MCH 29.9 MCHC 31.9 L RDW Std Deviation 44.7 H RDW Coeff of Sumeet 13.0 Plt Count 313 MPV 10.6 Immature Gran % (Auto) 0.300 Neut % (Auto) 64.0 Lymph % (Auto) 24.9 [place] % (Auto) 7.8 Eos % (Auto) 2.4 Baso % (Auto) 0.6 Absolute Neuts (auto) 6.0 Absolute Lymphs (auto) 2.35 Nucleated RBC % 0 PT 21.3 H INR 1.8 APTT 43.3 H Sodium 138 Potassium 4.0 Chloride 104 Carbon Dioxide 28.0 Anion Gap 6 BUN 14 Creatinine 1.14 H Estim Creat Clear Calc 28.76 Est GFR (MDRD) Af Amer 58 L Est GFR (MDRD) Non-Af 48 L BUN/Creatinine Ratio 12.3 Glucose 135 H Calcium 9.0 Troponin I High Sens 10 POC Glucose 136 H Radiography Chest X-Ray - ED: 1 View, Read by ED Physician, No Acute Disease, Chronic Changes and No Infiltrates Diagnostic Testing: Clinical Impression(s) from Imaging Studies Brain CT 11/14/22 11:07 IMPRESSION: No acute intracranial process identified. Moderate chronic involutional and white matter changes. Electronically Signed: Ban Avila MD at 11:23 EDT , ADDENDUM: 11/14/22 1134 IMPRESSION: No acute intracranial process identified. Moderate chronic involutional and white matter changes. N.B. : The above Results were Read Back by Ban Avila MD to Neri Mitchell MD, and understanding confirmed on 11/14/2022 11:27:40 (ET). Electronically Signed: Ban Avila MD at 11:23 EDT , Head/Neck CTA 11/14/22 11:07 IMPRESSION: No evidence for significant stenosis or occlusion in the carotid or vertebral arteries of the neck. No evidence for large vessel occlusion the [place]. N.B. : The above Results were Read Back by Ban Avila MD to Neri Mitchell MD, and understanding confirmed on 11/14/2022 11:41:26 (ET). Electronically Signed: Ban Avila MD at 11:41 EDT , ADDENDUM: 11/14/22 1148 IMPRESSION: No evidence for significant stenosis or occlusion in the carotid or vertebral arteries of the neck. No evidence for large vessel occlusion the [place]. N.B. : The above Results were Read Back by Ban Avila MD to Neri Mitchell MD, and understanding confirmed on 11/14/2022 11:41:26 (ET). Electronically Signed: Ban Avila MD at 11:41 EDT , My interpretation of the CT agrees with that of the radiologist. Rhythm Strip Rhythm Strip: A-fib Rate: 85 Ectopy: None EKG Initial EKG: Attestation: I personally reviewed and interpreted this EKG as follows: Interpretation: No Acute Injury Pattern and Atrial Fibrillation Management Discussion w/another healthcare provider: Hospitalist, Sr Vice President (Stroke neurology Dr. Tamez) and Radiologist (At 1121 for NCCT, negative for bleed) Stroke Documentation Questions Stroke Team Activated: Yes Critical Care Time Critical Care Time: Yes Critical care time (excluding procedures): 30-74 minutes (37 min), Including time spent:, Discussing w/Patient &/or Family/Customer Marketing Assistant, Discussing w/Consultants, Arranging Admission or Transfer and Performing Direct Patient Care at Bedside Discharge Plan Dx/Rx/DC Orders Clinical Impression: Brain TIA, Paroxysmal atrial fibrillation, Subtherapeutic international normalized ratio (INR) Disposition Disposition: Acute Care Hospital [facility]
--- NOTE | 2022-11-14 11:13 | CM.ED ---
Social Work Referral Source: Stroke alert Referral Reason: emotional support SW responded to stroke alert to offer support, no family or friends at bedside. SW remains available if needs arise. Marilia Grimes MSW, B[facility]
[2022-11-14 11:18] LABS: Absolute Lymphocyte Count 2.35 X10^3/uL (0.83-4.51); Basophil# 0.06 X10^3/uL; Basophil% 0.6 % (0-1); Eosinophil# 0.23 X10^3/uL; Eosinophils% 2.4 % (0-5); Hematocrit 44.8 % (37-47); Hemoglobin 14.3 g/dL (12.0-15.0); Lymphocyte # 2.35 X10^3/ul (0.83-4.51); Lymphocyte % 24.9 % (19-41); Mean Corp Hgb Conc 31.9 g/dL (32-36); Mean Corpuscular Hgb 29.9 pg (27.0-32.0); Mean Corpuscular Volume 93.5 fL (81-99); Mean Platelet Vol. 10.6 fl (6.2-12.0); Monocyte# 0.74 X10^3/uL; Monocyte% 7.8 % (0-10); NRBC Flagged by Analyzer 0 % (0-5); Neutrophil # 6.03 X10^3/uL (2.7-7.7); Platelet Count 313 K/mm3 (150-450); RBC Distribution Width SD 44.7 fl (35.1-43.9); Red Blood Count 4.79 M/mm3 (4.2-5.4); White Blood Count 9.4 K/mm3 (4.4-11.0)
[2022-11-14 11:21] LABS: Bedside Glucose 136 mg/dL (74-106)
[2022-11-14 11:27] LABS: International Normalized Ratio 1.8; Prothrombin Time (Protime)PT. 21.3 SECONDS (11.7-14.9)
[2022-11-14 11:28] LABS: Partial Thromboplast Time 43.3 Seconds (24.1-36.2)
[2022-11-14 11:35] LABS: Anion Gap 6 (5-15); BUN 14 mg/dL (7-18); BUN/Creat Ratio 12.3 RATIO (10-20); Chloride 104 mmol/L (98-107); Creatinine, Serum 1.14 mg/dL (0.55-1.02); EST Glomerular Filtration Rate 48 mL/min (>60); Est Glom Filt Rate - Afr Amer 58 mL/min (>60); Estimated Creatinine Clearance 28.76 ml/min; Glucose 135 mg/dL (74-106); Sodium Level 138 mmol/L (136-145); Troponin-I HS 10 pg/mL (3.0-54.0)
--- NOTE | 2022-11-14 11:50 | RAD_ITS ---
HISTORY: Neuro deficit, acute, stroke suspected. TECHNIQUE: XR Chest 1 View. COMPARISON: 02/11/2022. FINDINGS: CARDIOMEDIASTINAL BORDERS: Cardiac silhouette and mediastinal contour unchanged with borderline cardiomegaly and calcification of the aorta. LUNGS: Chronic coarse interstitial markings in the lungs with an 8 mm nodular opacity in the left midlung. PLEURA: No pleural effusion or pneumothorax seen. OSSEOUS STRUCTURES: High riding right humeral head from chronic rotator cuff tear.. RAD/Chest 1 View IMPRESSION: Possible pulmonary nodule in the left midlung. Electronically Signed: Ban Avila MD at 12:31 EDT ,
--- NOTE | 2022-11-14 12:17 | CHAPLAIN ---
Type of Pastoral Visit ___ Initial Visit ___ Follow-up Visit ___ On-call Visit ___ General Patient Visit ___ Spiritual Assessment ___ Family Conference ___ Bereavement _x__ Rapid Response ___ Code Blue ___ Other (describe below) Pastoral Care Referral From ___ Patient ___ Family ___ Nurse ___ Physician ___ Ophthalmic Surgical Assistant ___ Planner Internship _x__ Other (describe below) Sacrament/Intervention ___ Active listening ___ Anointing ___ Mu-Ism ___ Bereavement ___ Communion ___ Mer exploration ___ ___ Life review ___ Prayer ___ Reconciliation ___ Sacrament of Sick _x__ Supportive presence ___ Wedding ___ Other (describe below) Pastoral Comments responded to stroke alert; pt is being evaluated and then was taken to CT; SO left the building; will be available as needed for support
--- NOTE | 2022-11-14 12:55 | PCM.HP.STD ---
HPI - General General Date of Admission: 11/14/22 HPI Narrative EZRA GONZALEZ, is a 87 F who presents to the hospital with what appears to be a TIA. She developed aphasia this morning at around 11 AM, her last known well was 08, she was within the tPA window however symptoms resolved and her INR was 1.8. She is currently asymptomatic and has an NIH of 0. CTA of the head and neck was unremarkable, CT of the brain was normal and chest x-ray was also unremarkable. She is little bit hypertensive which is to be expected in the setting of possible CVA, she is also stated that she has had mini strokes in the past. She was requested to be admitted for stroke rule out. 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) Osteoarthritis Paroxysmal atrial fibrillation Persistent atrial fibrillation Pleural effusion on right (09/2019) Spinal stenosis Type 2 diabetes mellitus Home Medications simvastatin 20 mg tablet 20 mg PO DAILY 10/11/19 [History Last Taken Unknown] lisinopril 5 mg tablet 5 mg PO DAILY 12/10/19 [History Last Taken 06/21/20] multivitamin 1 cap PO DAILY 12/10/19 [History Last Taken Unknown] ascorbate calcium (vitamin C) 500 mg tablet 500 mg PO DAILY 01/31/21 [History Last Taken Unknown] melatonin 10 mg capsule 10 mg PO HS PRN sleep 04/16/22 [History Last Taken Unknown] metoprolol succinate 25 mg tablet,extended release 24 hr 25 mg PO BID #90 tabs 05/16/22 [Rx Last Taken Unknown] donepezil 10 mg tablet 10 mg PO QHS #30 tabs 09/18/22 [Rx Last Taken Unknown] warfarin 2.5 mg tablet 2.5 mg PO DAILY 10/15/22 [History Last Taken Unknown] diphenhydramine HCl 25 mg tablet (Allergy) 25 mg PO QHS PRN allergy symptoms 11/14/22 [History Last Taken Unknown] omeprazole 20 mg capsule,delayed release 20 mg PO DAILY reflux 11/14/22 [History Last Taken Unknown] Allergy/AdvReac Type Severity Reaction Status Date / Time latex Allergy rash Verified 10/15/22 09:31 amiodarone AdvReac Severe Hair Verified 10/15/22 09:31 falling out in gobs atorvastatin [From Lipitor] AdvReac myalgia Verified 10/15/22 09:31 codeine AdvReac Nausea Verified 10/15/22 09:31 meperidine [From Demerol] AdvReac Nausea/Vom/ Verified 10/15/22 09:31 Diarrhea rosuvastatin [From Crestor] AdvReac myalgia Verified 10/15/22 09:31 Family History Father CAD (coronary artery disease) Brother CAD (coronary artery disease) Surgical History History of coronary artery stent placement (02/14/07) History of knee replacement History of kyphoplasty (~05/2020) History of left heart catheterization (12/27/19) History of left hip replacement History of radiofrequency ablation procedure for cardiac arrhythmia (2011) History of repair of rotator cuff Social History (Updated 11/14/22 @ 13:19 by Rachell Winchester) housing: assisted living facility Smoking Status: Former smoker how long ago did patient quit smokin years ago alcohol intake: former substance use type: does not use caffeine: No ROS Constitutional Constitutional: Denies chills, fatigue, fever(s) or malaise Eyes Eyes: Denies blurry vision ENT HEENT: Denies headache(s) or nasal discharge Cardiovascular Cardiovascular: Denies chest pain, dyspnea on exertion or syncope Respiratory/Chest Respiratory/Chest: Denies cough, shortness of breath at rest or shortness of breath with exertion Gastrointestinal Gastrointestinal: Denies constipation, diarrhea, nausea or vomiting Genitourinary Genitourinary: Denies dysuria Neurologic Neurologic: Reports abnormal speech; Denies focal weakness, numbness or tremor(s) Psychiatric Psychiatric: Denies anxiety or depression Vital Signs Vital Signs Vital Signs: 11/14/22 11:02 11/14/22 11:01 11/14/22 11:07 Temperature 97.8 F 97.8 F Temperature Source Temporal Temporal Pulse Rate 88 87 Respiratory Rate 14 14 Blood Pressure 171/107 H 171/101 H Blood Pressure Mean 128 124 Pulse Ox 95 95 Oxygen Delivery Method Room Air Room Air Room Air 11/14/22 11:07 11/14/22 11:37 11/14/22 11:54 Temperature 97.6 F L 97.6 F L 97.4 F L Temperature Source Temporal Temporal Temporal Pulse Rate 86 87 78 Respiratory Rate 14 14 16 Blood Pressure 138/96 H 150/71 H 148/61 H Blood Pressure Mean 110 97 90 Pulse Ox 98 98 98 Oxygen Delivery Method Room Air Room Air Room Air 11/14/22 12:07 11/14/22 12:30 Temperature 98 F 97.6 F L Temperature Source Temporal Temporal Pulse Rate 64 64 Respiratory Rate 14 14 Blood Pressure 143/76 H 164/101 H Blood Pressure Mean 98 122 Pulse Ox 97 98 Oxygen Delivery Method Room Air Room Air Weight Weight: 190 lb 7.67 oz Body Mass Index (BMI) 33.7 Physical Exam Narrative General: Alert, Oriented x3, Cooperative, No apparent distress HEENT: Atraumatic, PERRLA, EOMI, Normocephalic Oral: Moist Mucosa Neck: Supple, No JVD Lungs: Clear to auscultation, Normal air movement, No rhonchi, No wheeze, No rales Cardiovascular: Regular rate, irregular rhythm, Normal S1, Normal S2, No murmurs Abdomen: Soft, Non Tender, Non-Distended, No Hepato-splenomegaly Extremities: No edema, Capillary Refill Less than 3 Seconds Skin: No rashes, No breakdown Musculoskeletal: No Tenderness to Palpation of Joints or Extremities Neurological: Cranial nerves II-XII grossly intact, Motor Exam 5/5 strength throughout, Sensory exam intact to light touch and pain, speech is normal Psych/Mental Status: Normal Affect, Appropriate Results Lab / Micro Data 11/14/22 11:10 11/14/22 11:10 Labs: Laboratory Results - last 24 hr 11/14/22 11:04: POC Glucose 136 H 11/14/22 11:10: WBC 9.4, RBC 4.79, Hgb 14.3, Hct 44.8, MCV 93.5, MCH 29.9, MCHC 31.9 L, RDW Std Deviation 44.7 H, RDW Coeff of Sumeet 13.0, Plt Count 313, MPV 10.6, Immature Gran % (Auto) 0.300, Neut % (Auto) 64.0, Lymph % (Auto) 24.9, Garza % (Auto) 7.8, Eos % (Auto) 2.4, Baso % (Auto) 0.6, Absolute Neuts (auto) 6.0, Absolute Lymphs (auto) 2.35, Nucleated RBC % 0, PT 21.3 H, INR 1.8, APTT 43.3 H, Sodium 138, Potassium 4.0, Chloride 104, Carbon Dioxide 28.0, Anion Gap 6, BUN 14, Creatinine 1.14 H, Estim Creat Clear Calc 28.76, Est GFR (MDRD) Af Amer 58 L, Est GFR (MDRD) Non-Af 48 L, BUN/Creatinine Ratio 12.3, Glucose 135 H, Calcium 9.0, Troponin I High Sens 10 Rhythm Strip Rhythm Strip: A-fib Rate: 85 Ectopy: None Radiology Impression Brain CT 11/14/22 11:07 IMPRESSION: No acute intracranial process identified. Moderate chronic involutional and white matter changes. Electronically Signed: Ban Avila MD at 11:23 EDT , ADDENDUM: 11/14/22 1134 IMPRESSION: No acute intracranial process identified. Moderate chronic involutional and white matter changes. N.B. : The above Results were Read Back by Ban Avila MD to Neri Mitchell MD, and understanding confirmed on 11/14/2022 11:27:40 (ET). Electronically Signed: Ban Avila MD at 11:23 EDT , Head/Neck CTA 11/14/22 11:07 IMPRESSION: No evidence for significant stenosis or occlusion in the carotid or vertebral arteries of the neck. No evidence for large vessel occlusion the [place]. N.B. : The above Results were Read Back by Ban Avila MD to Neri Mitchell MD, and understanding confirmed on 11/14/2022 11:41:26 (ET). Electronically Signed: Ban Avila MD at 11:41 EDT , ADDENDUM: 11/14/22 1148 IMPRESSION: No evidence for significant stenosis or occlusion in the carotid or vertebral arteries of the neck. No evidence for large vessel occlusion the [place]. N.B. : The above Results were Read Back by Ban Avila MD to Neri Mitchell MD, and understanding confirmed on 11/14/2022 11:41:26 (ET). Electronically Signed: Ban Avila MD at 11:41 EDT , Chest X-Ray 11/14/22 11:50 IMPRESSION: Possible pulmonary nodule in the left midlung. Electronically Signed: Ban Avila MD at 12:31 EDT , Assessment & Plan Assessment/Plan (1) Brain TIA: PLAN: Plan 1. TIA ? We will obtain an echo and an MRI ? PT/OT ? She is already on Coumadin and statin which we will continue, it appears that she had been on Lipitor and Crestor in the past however these caused myalgias ? We will hold her blood pressure medication secondary to permissive hypertension ? If the MRI is positive can consult [facility] neurology 2. A-fib/HTN/HLD ? Blood pressures are stable ? Resume her Coumadin ? Continue with her cholesterol medication ? We will hold her blood pressure medication for permissive hypertension DVT: Coumadin 76 minutes was spent on direct patient care, including documentation as well as chart review and collaboration with colleagues Charges/Coding Visit Charges Inpatient E&M: 14475 Init Hosp L3
--- NOTE | 2022-11-14 13:00 | MRI_ITS ---
STUDY: MRI BRAIN WITHOUT CONTRAST REASON FOR EXAM: Female, 87 years old. TIA TECHNIQUE: Standardized multiplanar fat and water weighted pulse sequences were obtained. MRI examination brain fusion protocol including multiplanar multiecho noncontrast imaging. Contrast: No contrast administered. COMPARISON: Prior study dated: CT of 11/14/2022, MRI of 09/06/2022. HEMISPHERES, CEREBELLUM AND BRAINSTEM: 1. The cerebral parenchyma, ventricular system, subarachnoid spaces have normal configuration and density. There is a normal gyral pattern. There is normal garcia/white differentiation. No midline shift.. 2. Mild chronic microvascular deep white matter disease and mild diffuse involutional changes. 3. No intraparenchymal mass, hemorrhage, or acute territorial infarct. 4. The cerebellum, brainstem, basilar and suprasellar cisterns have normal appearance. No Chiari malformation. PITUITARY: Infundibulum and pituitary have normal configuration. Midline structures appear normal. CSF SPACES: Appropriate for age. No hydrocephalus. Basal cisterns are patent. VESSELS: 1. There are normal flow voids noted in the great vessels at the skull base ORBITS AND PARANASAL SINUSES: 1. Both globes, extraocular muscles, optic nerves and retrobulbar fat appear unremarkable. 2. Paranasal sinuses are clear. BONY ELEMENTS: Bony elements of the cranial vault, facial skeleton and skull base have normal appearance. SCALP AND SOFT TISSUES: Normal appearance of the soft tissues of the scalp and the visualized face OTHER: None MRI/Brain without Contrast IMPRESSION: 1. Mild involutional changes and chronic microvascular deep white matter disease. 2. No intracranial mass, hemorrhage, or acute territorial infarct. Electronically Signed: Norm Mattson MD at 19:36 EDT ,
--- NOTE | 2022-11-14 13:00 | ECHOCS_ITS ---
Reason For Study: TIA/CVA Procedure This was a 2D Doppler, Color Flow transthoracic echocardiogram. Technically difficult study due to uncooperative patient. Contrast injection was performed. Exam performed portable in patient room. Left Ventricle Normal left ventricle. The estimated ejection fraction is 55-60 %. Right Ventricle Normal right ventricle. Normal systolic function. Atria Normal left atrium. Normal right atrium. Mitral Valve The mitral valve is structurally normal. No prolapse or stenosis seen. Mild (1+) mitral valve insufficiency. Tricuspid Valve Normal tricuspid valve. Mild eccentric tricuspid valve insufficiency. Aortic Valve Trisinus/trileaflet aortic valve. Normal aortic valve. Mild (1+) aortic valve insufficiency. Pulmonic Valve The pulmonic valve is not well visualized. Great Vessels Normal aortic root. Pericardium/Pleural No pericardial effusion. Medication Diluted definity 2ml given slow IV push to enhance endocardial definition. Performed a rapid injection of agitated mix of 9 cc saline and 1cc air to assess for atrial septal defect. MMode/2D Measurements & Calculations LVIDd: 5.1 cm IVSd: 0.88 cm Ao root diam: 4.0 cm LVIDs: 3.9 cm LVPWd: 1.1 cm FS: 24.1 % LAV(MOD-bp): 58.0 ml LVAd ap4: 25.6 cm2 SV(MOD-sp4): 45.5 ml LAV(MOD-bp) Indexed: 30.7 ml/m2 LVLd ap4: 7.1 cm LAV(MOD-sp2): 63.5 ml EDV(MOD-sp4): 76.6 ml LAV(MOD-sp4): 49.6 ml EDV(sp4-el): 78.2 ml LVAs ap4: 15.9 cm2 LVLs ap4: 6.7 cm ESV(MOD-sp4): 31.1 ml ESV(sp4-el): 32.2 ml EF(MOD-sp4): 59.4 % EF(sp4-el): 58.8 % SV(sp4-el): 46.0 ml LA A4 area: 18.5 cm2 LA dimension(2D): 5.0 cm RA A4 area: 16.6 cm2 TAPSE: 1.8 cm Doppler Measurements & Calculations MV E max little: 92.0 cm/sec Ao V2 max: 132.4 cm/sec LV V1 max: 85.8 cm/sec Ao max P.1 mmHg LV V1 max P.9 mmHg Ao V2 mean: 91.0 cm/sec LV V1 mean P.7 mmHg Ao mean P.9 mmHg LV V1 mean: 59.9 cm/sec Ao V2 VTI: 22.8 cm LV V1 VTI: 17.2 cm AV (velocity ratio): 0.76 PA V2 max: 67.0 cm/sec TR max little: 240.9 cm/sec PA V2 mean: 47.4 cm/sec TR max P.2 mmHg ECHO/Echo Complete W/ Contrast Interpretation Summary The estimated ejection fraction is 55-60 %. Normal LV systolic function Contrast echo used/Definity No significant difference from prior echocardiogram Ordering Physician: Sae Carballo Referring Physician: ELENI RUSSO Performed By: Adina Draper RCS
--- NOTE | 2022-11-14 16:15 | CASEMGMT ---
Discharge Planning Patient resides at [facility]. Per JUAN F Taveras, they have no concerns with her return. Asked for updates to be sent in the morning. Daiana Teran, Discharge Planning Asst.
[2022-11-14] MEDS: MELATONIN 10 MG TABLET PO (20:00)
[2022-11-14] MEDS: Donepezil HCl 10 MG Tablet PO (20:01)
[2022-11-15 03:04] VITALS: BP 168/79; PULSE 87; RESP 18; TEMP 36.6; O2SAT 94
[2022-11-15 06:29] LABS: Absolute Lymphocyte Count 2.03 X10^3/uL (0.83-4.51); Absolute Neutrophil Count 4.7 X10^3/uL (2.0-7.7); Basophil# 0.04 X10^3/uL; Basophil% 0.5 % (0-1); Eosinophil# 0.27 X10^3/uL; Eosinophils% 3.5 % (0-5); Hematocrit 39.6 % (37-47); Hemoglobin 12.9 g/dL (12.0-15.0); Lymphocyte # 2.03 X10^3/ul (0.83-4.51); Lymphocyte % 26.2 % (19-41); Mean Corp Hgb Conc 32.6 g/dL (32-36); Mean Corpuscular Hgb 29.9 pg (27.0-32.0); Mean Corpuscular Volume 91.7 fL (81-99); Mean Platelet Vol. 10.6 fl (6.2-12.0); Monocyte# 0.73 X10^3/uL; Monocyte% 9.4 % (0-10); NRBC Flagged by Analyzer 0 % (0-5); Neutrophil # 4.67 X10^3/uL (2.7-7.7); Neutrophil % 60.3 % (47-70); Platelet Count 278 K/mm3 (150-450); RBC Distribution Width CV 12.9 % (11.6-14.6); RBC Distribution Width SD 43.4 fl (35.1-43.9); Red Blood Count 4.32 M/mm3 (4.2-5.4); White Blood Count 7.8 K/mm3 (4.4-11.0)
[2022-11-15 07:04] LABS: Anion Gap 7 (5-15); BUN 14 mg/dL (7-18); BUN/Creat Ratio 15.8 RATIO (10-20); Calcium,Total 8.5 mg/dL (8.5-10.1); Chloride 107 mmol/L (98-107); Cholesterol 164 mg/dL (200); Creatinine, Serum 0.88 mg/dL (0.55-1.02); EST Glomerular Filtration Rate 64 mL/min (>60); Est Glom Filt Rate - Afr Amer 78 mL/min (>60); Estimated Creatinine Clearance 37.26 ml/min; Glucose 124 mg/dL (74-106); High Density Lipoprotein 49 mg/dL; Potassium 4.1 mmol/L (3.5-5.1); Sodium Level 139 mmol/L (136-145); Triglycerides 133 mg/dL; Very Low Density Lipoprotein 27 mg/dL (5-40)
--- NOTE | 2022-11-15 08:47 | CASEMGMT ---
Discharge Planning Updates sent to Fatimah Bronson: JUAN F Taveras, via fax. Daiana Teran, Discharge Planning Asst.
[2022-11-15 08:55] VITALS: BP 136/78; PULSE 68; RESP 16; TEMP 36.5; O2SAT 96
--- NOTE | 2022-11-15 09:28 | DCINST_ITS ---
Discharge Instructions Diet Discharge Diet: Low fat / Low cholesterol Activity Discharge Activity: Return to Normal Activity Dressing / Incision Call your doctor if you observe: Fever of 101 or Higher, Shortness of breath, Dizziness, Fainting spells, Swelling in the ankles, Chest pain and Increased palpitations (irregular heartbeat) Follow Up Care Test Results: Test results from this visit will be discussed in further detail at your follow- up appointment, if applicable. Discharge Plan Admission Admit Date/Time: 11/14/22 11:54 Attending Provider: Sae Carballo Primary Care Provider: Rosemary Doran Discharge Orders/Prescriptions Prescriptions: Continued lisinopril 5 mg tablet 5 mg PO DAILY multivitamin capsule 1 cap PO DAILY ascorbate calcium (vitamin C) 500 mg tablet 500 mg PO DAILY Hold Instructions: Order Completed melatonin 10 mg capsule 10 mg PO HS PRN (Reason: sleep) warfarin 2.5 mg tablet 2.5 mg PO DAILY Patient Comments: TAKE 1 TABLET BY MOUTH ONCE DAILY Rx Instructions: Managed by PCP donepezil 10 mg tablet 10 mg PO QHS Qty: 30 5RF Rx Instructions: Begin after completing one month of treatment of donepezil 5mg nightly simvastatin 20 MG tablet 20 mg PO DAILY diphenhydramine HCl [Allergy] 25 mg tablet 25 mg PO QHS PRN (Reason: allergy symptoms) omeprazole 20 mg capsule,delayed release(DR/EC) 20 mg PO DAILY metoprolol succinate 25 mg tablet extended release 24 hr 25 mg PO BID Qty: 90 3RF Referrals / Follow Up: Rosemary Doran MD [Primary Care Provider] - Within 1 Week Disposition Disposition (needs filled in before D/C Order can be placed): Home, Self Care
--- NOTE | 2022-11-15 09:41 | CASEMGMT ---
Social Work Patient from [place] and to return per medical chart. This social professionals met with patient in room. Introduced self and social professionals role. Patient confirms with plan for patient to return to [place]. This social professionals inquired about transportation to [place], patient request for this social professionals to set up transportation via [facility] [employer]. This social professionals inquired about contact family member in regards to patient discharge, patient declined for this social professionals to contact family in regards to discharge plan and states plan to notify family/support system. Telephone call to [facility] Anamaria Liu. Transportation set up for 10:05, patient and medical team updated. PLAN: Return to [place] Proposed discharge date: 11/15/2022 Artem BASS, BENITEZ-S
--- NOTE | 2022-11-15 09:49 | CASEMGMT ---
Discharge Planning Discharge instructions and out-pt therapy order sent to [facility] via fax. Daiana Teran, Discharge Planning Asst.
--- NOTE | 2022-11-15 09:57 | CASEMGMT ---
Discharge Planning Phone call placed to Carol. I was transferred to Kishan and updated him that patient is being picked up in approx 10 min. Kishan stated that he hadn't received either faxes at this time. Informed him that faxes were sent to [facility]. Daiana Teran, Discharge Planning Asst.
--- NOTE | 2022-11-15 10:00 | NURSING ---
This RN stephan Quevedo LPN at [facility] at 1000 to give report on pt. This RN also let know pt refused AM meds until pt got back to [facility] because pt was in such a hurry to get home and could not understand why a car was not waiting for her immediately when we told her she was DCd. Was irritated and kept trying to leave room and saying nobody was on the ball this AM. Pt was off floor by 1015am.
[2022-11-15 10:11] VITALS: BMI 32.2
--- NOTE | 2022-11-15 11:02 | PCM.DC.SUM ---
Providers Date of Admission: 11/14/22 Primary Care Physician: Dr. Rosemary Russo MD Reason For Visit: TIA Diagnosis Discharge Diagnosis (1) Brain TIA: Status: Acute Code(s): G45.9 - Transient cerebral ischemic attack, unspecified Medications at Discharge Home Medications simvastatin 20 mg tablet 20 mg PO DAILY 10/11/19 lisinopril 5 mg tablet 5 mg PO DAILY 12/10/19 multivitamin 1 cap PO DAILY 12/10/19 ascorbate calcium (vitamin C) 500 mg tablet 500 mg PO DAILY 01/31/21 melatonin 10 mg capsule 10 mg PO HS PRN sleep 04/16/22 metoprolol succinate 25 mg tablet,extended release 24 hr 25 mg PO BID #90 tabs 05/16/22 donepezil 10 mg tablet 10 mg PO QHS #30 tabs 09/18/22 warfarin 2.5 mg tablet 2.5 mg PO DAILY 10/15/22 diphenhydramine HCl 25 mg tablet (Allergy) 25 mg PO QHS PRN allergy symptoms 11/14/22 omeprazole 20 mg capsule,delayed release 20 mg PO DAILY reflux 11/14/22 Hospital Course Operations None Procedures 2-D Echocardiogram Summary of Care Provided Minutes Spent on Discharge: 36 Hospital Course: Per HPI: EZRA GONZALEZ, is a 87 F who presents to the hospital with what appears to be a TIA. She developed aphasia this morning at around 11 AM, her last known well was 0830, she was within the tPA window however symptoms resolved and her INR was 1.8. She is currently asymptomatic and has an NIH of 0. CTA of the head and neck was unremarkable, CT of the brain was normal and chest x-ray was also unremarkable. She is little bit hypertensive which is to be expected in the setting of possible CVA, she is also stated that she has had mini strokes in the past. She was requested to be admitted for stroke rule out. Hospital Course: 1. TIA?87-year-old female presented with aphasia consistent with TIA. 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 She does have some dementia and she is on donepezil. PT/OT felt that she might benefit from outpatient therapy so prescription was provided. MRI and echo were unremarkable. She does have a history of A-fib so we will resume her Coumadin, also I did not adjust her statin secondary to the fact that she has allergies to both Crestor and Lipitor for myalgias. I do recommend she follow-up with her PCP and may potentially benefit from outpatient evaluation by neurology. I discussed with her the plan for discharge today she expressed understanding of the risk benefits of going home and would like to go home today. 2. Hypertension, hyperlipidemia, A-fib chronic medical conditions which complicate her care. Her home medications were continued where appropriate Physical Exam Narrative General: Alert, Oriented x3, Cooperative, No apparent distress HEENT: Atraumatic, PERRLA, EOMI, Normocephalic Oral: Moist Mucosa Neck: Supple, No JVD Lungs: Clear to auscultation, Normal air movement, No rhonchi, No wheeze, No rales Cardiovascular: Regular rate, irregular rhythm, Normal S1, Normal S2, No murmurs Abdomen: Soft, Non Tender, Non-Distended, No Hepato-splenomegaly Extremities: No edema, Capillary Refill Less than 3 Seconds Skin: No rashes, No breakdown Musculoskeletal: No Tenderness to Palpation of Joints or Extremities Neurological: Cranial nerves II-XII grossly intact, Motor Exam 5/5 strength throughout, Sensory exam intact to light touch and pain, speech is normal Psych/Mental Status: Normal Affect, Appropriate Weight / BMI Weight Weight: 181 lb 14.102 oz Body Mass Index (BMI) 32.2 ABG / Lab / Microbiology Data 11/15/22 05:25 11/15/22 05:25 Laboratory: Laboratory Results - last 24 hr 11/14/22 11:04: POC Glucose 136 H 11/14/22 11:10: WBC 9.4, RBC 4.79, Hgb 14.3, Hct 44.8, MCV 93.5, MCH 29.9, MCHC 31.9 L, RDW Std Deviation 44.7 H, RDW Coeff of Sumeet 13.0, Plt Count 313, MPV 10.6, Immature Gran % (Auto) 0.300, Neut % (Auto) 64.0, Lymph % (Auto) 24.9, [place] % (Auto) 7.8, Eos % (Auto) 2.4, Baso % (Auto) 0.6, Absolute Neuts (auto) 6.0, Absolute Lymphs (auto) 2.35, Nucleated RBC % 0, PT 21.3 H, INR 1.8, APTT 43.3 H, Sodium 138, Potassium 4.0, Chloride 104, Carbon Dioxide 28.0, Anion Gap 6, BUN 14, Creatinine 1.14 H, Estim Creat Clear Calc 28.76, Est GFR (MDRD) Af Amer 58 L, Est GFR (MDRD) Non-Af 48 L, BUN/Creatinine Ratio 12.3, Glucose 135 H, Calcium 9.0, Troponin I High Sens 10 11/15/22 05:25: WBC 7.8, RBC 4.32, Hgb 12.9, Hct 39.6, MCV 91.7, MCH 29.9, MCHC 32.6, RDW Std Deviation 43.4, RDW Coeff of Sumeet 12.9, Plt Count 278, MPV 10.6, Immature Gran % (Auto) 0.100, Neut % (Auto) 60.3, Lymph % (Auto) 26.2, [place] % (Auto) 9.4, Eos % (Auto) 3.5, Baso % (Auto) 0.5, Absolute Neuts (auto) 4.7, Absolute Lymphs (auto) 2.03, Nucleated RBC % 0, PT 23.0 H, INR 2.0, Sodium 139, Potassium 4.1, Chloride 107, Carbon Dioxide 25.0, Anion Gap 7, BUN 14, Creatinine 0.88, Estim Creat Clear Calc 37.26, Est GFR (MDRD) Af Amer 78, Est GFR (MDRD) Non-Af 64, BUN/Creatinine Ratio 15.8, Glucose 124 H, Calcium 8.5, Triglycerides 133, Cholesterol 164, LDL Cholesterol 88, VLDL Cholesterol 27, HDL Cholesterol 49 Radiography Diagnostic Testing: Radiology Impression Brain CT 11/14/22 11:07 IMPRESSION: No acute intracranial process identified. Moderate chronic involutional and white matter changes. Electronically Signed: Ban Avila MD at 11:23 EDT , ADDENDUM: 11/14/22 [id number] IMPRESSION: No acute intracranial process identified. Moderate chronic involutional and white matter changes. N.B. : The above Results were Read Back by Ban Avila MD to Neri Mitchell MD, and understanding confirmed on 11/14/2022 11:27:40 (ET). Electronically Signed: Ban Avila MD at 11:23 EDT , Head/Neck CTA 11/14/22 11:07 IMPRESSION: No evidence for significant stenosis or occlusion in the carotid or vertebral arteries of the neck. No evidence for large vessel occlusion the [place]. N.B. : The above Results were Read Back by Ban Avila MD to Neri Mitchell MD, and understanding confirmed on 11/14/2022 11:41:26 (ET). Electronically Signed: Ban Avila MD at 11:41 EDT , ADDENDUM: 11/14/22 1148 IMPRESSION: No evidence for significant stenosis or occlusion in the carotid or vertebral arteries of the neck. No evidence for large vessel occlusion the [place]. N.B. : The above Results were Read Back by Ban Avila MD to Neri Mitchell MD, and understanding confirmed on 11/14/2022 11:41:26 (ET). Electronically Signed: Ban Avila MD at 11:41 EDT , Chest X-Ray 11/14/22 11:50 IMPRESSION: Possible pulmonary nodule in the left midlung. Electronically Signed: Ban Avila MD at 12:31 EDT , Brain MRI 11/14/22 13:00 IMPRESSION: 1. Mild involutional changes and chronic microvascular deep white matter disease. 2. No intracranial mass, hemorrhage, or acute territorial infarct. Electronically Signed: Norm Mattson MD at 19:36 EDT , Echocardiogram 11/14/22 13:00 Interpretation Summary The estimated ejection fraction is 55-60 %. Normal LV systolic function Contrast echo used/Definity No significant difference from prior echocardiogram Ordering Physician: Sae Carballo Referring Physician: ROSEMARY RUSSO Performed By: Adina Draper RCS D/C Instructions Discharge Diet: Low fat / Low cholesterol Call your doctor if you observe: Fever of 101 or Higher, Shortness of breath, Dizziness, Fainting spells, Swelling in the ankles, Chest pain and Increased palpitations (irregular heartbeat) Meaningful Use Info Meaningful Use Diagnoses (Choose all that apply): None applicable Discharge Plan Admission Admit Date/Time: 11/14/22 11:54 Attending Provider: Sae Carballo Primary Care Provider: Rosemary Russo Discharge Orders/Prescriptions Prescriptions: Continued lisinopril 5 mg tablet 5 mg PO DAILY multivitamin capsule 1 cap PO DAILY ascorbate calcium (vitamin C) 500 mg tablet 500 mg PO DAILY Hold Instructions: Order Completed melatonin 10 mg capsule 10 mg PO HS PRN (Reason: sleep) warfarin 2.5 mg tablet 2.5 mg PO DAILY Patient Comments: TAKE 1 TABLET BY MOUTH ONCE DAILY Rx Instructions: Managed by PCP donepezil 10 mg tablet 10 mg PO QHS Qty: 30 5RF Rx Instructions: Begin after completing one month of treatment of donepezil 5mg nightly simvastatin 20 MG tablet 20 mg PO DAILY diphenhydramine HCl [Allergy] 25 mg tablet 25 mg PO QHS PRN (Reason: allergy symptoms) omeprazole 20 mg capsule,delayed release(DR/EC) 20 mg PO DAILY metoprolol succinate 25 mg tablet extended release 24 hr 25 mg PO BID Qty: 90 3RF Referrals / Follow Up: Rosemary Russo MD [Primary Care Provider] - Within 1 Week Disposition Disposition (needs filled in before D/C Order can be placed): Home, Self Care Charges/Coding Visit Charges Inpatient E&M: 04872 Disch Hosp >30min
== END 2022-11-15 09:30 | disposition home or self-care (01) ==
LOC: ED 12:07 → PCU 12:23
PROVIDERS: Admitting Provider Family Medicine; Emergency Provider Emergency Medicine; PCP Family Medicine; Visit Provider Family Medicine
DX: G45.9 Transient cerebral ischemic attack, unspecified (principal); F03.90 Unspecified dementia, unspecified severity, without behavioral disturbance, psychotic disturbance, mood disturbance, and anxiety; I13.0 Hypertensive heart and chronic kidney disease with heart failure and stage 1 through stage 4 chronic kidney disease, or unspecified chronic kidney disease; I50.32 Chronic diastolic (congestive) heart failure; E11.22 Type 2 diabetes mellitus with diabetic chronic kidney disease; I48.0 Paroxysmal atrial fibrillation; N18.9 Chronic kidney disease, unspecified; I25.10 Atherosclerotic heart disease of native coronary artery without angina pectoris; Z86.16 Personal history of COVID-19; R29.703 NIHSS score 3; Z87.891 Personal history of nicotine dependence; R47.01 Aphasia; Z79.01 Long term (current) use 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; E78.5 Hyperlipidemia, unspecified; I25.2 Old myocardial infarction; Z79.899 Other long term (current) drug therapy
CPT/HCPCS: 36415; 70450; 70496; 70498; 70551; 71045; 80048; 80061; 82962; 84484; 85025; 85610; 85730; 93005; 93306; 94762; 97161; 97165; 99221; 99285; J7030; Q9957; Q9967; A4216; C8929; G0378

== ENCOUNTER 2022-11-18 07:49 | Emergency (ER) | payer MEDICARE, SELFPAY ==
[2022-11-18 07:50] VITALS: BP 175/99; PULSE 77; RESP 16; TEMP 36.6; O2SAT 99; BMI 32.9
[2022-11-18 07:55] VITALS: BMI 32.9
--- NOTE | 2022-11-18 08:10 | EDS_ITS ---
HPI History of Present Illness Chief Complaint: Neuro S/Sx Informant: patient Onset/Context/Timing Onset: Yesterday Context: Sudden Onset Timing: Intermittent and Lasts (30 minutes) Quality: Aphasia Worsened by: Nothing Relieved by: Nothing Narrative Narrative: Patient presents with aphasia that began yesterday morning. Patient states she woke up and was unable to speak. Patient states that this resolved after approximately 30 minutes. Patient was recently admitted to the hospital for TIA where she had aphasia. Currently, patient denies any symptoms. Patient denies any headaches. Patient denies any nausea or vomiting. Patient denies any chest pain or shortness of breath. Patient does have a history of chronic atrial fibrillation. 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) Osteoarthritis Paroxysmal atrial fibrillation Persistent atrial fibrillation Pleural effusion on right (09/2019) Spinal stenosis Type 2 diabetes mellitus Home Medications simvastatin 20 mg tablet 20 mg PO DAILY 10/11/19 [History Last Taken Unknown] lisinopril 5 mg tablet 5 mg PO DAILY 12/10/19 [History Last Taken 06/21/20] multivitamin 1 cap PO DAILY 12/10/19 [History Last Taken Unknown] ascorbate calcium (vitamin C) 500 mg tablet 500 mg PO DAILY 01/31/21 [History Last Taken Unknown] melatonin 10 mg capsule 10 mg PO HS PRN sleep 04/16/22 [History Last Taken Unknown] metoprolol succinate 25 mg tablet,extended release 24 hr 25 mg PO BID #90 tabs 05/16/22 [Rx Last Taken Unknown] donepezil 10 mg tablet 10 mg PO QHS #30 tabs 09/18/22 [Rx Last Taken Unknown] warfarin 2.5 mg tablet 2.5 mg PO DAILY 10/15/22 [History Last Taken Unknown] diphenhydramine HCl 25 mg tablet (Allergy) 25 mg PO QHS PRN allergy symptoms 11/14/22 [History Last Taken Unknown] omeprazole 20 mg capsule,delayed release 20 mg PO DAILY reflux 11/14/22 [History Last Taken Unknown] Allergy/AdvReac Type Severity Reaction Status Date / Time latex Allergy rash Verified 10/15/22 09:31 amiodarone AdvReac Severe Hair Verified 10/15/22 09:31 falling out in gobs atorvastatin [From Lipitor] AdvReac myalgia Verified 10/15/22 09:31 codeine AdvReac Nausea Verified 10/15/22 09:31 meperidine [From Demerol] AdvReac Nausea/Vom/ Verified 10/15/22 09:31 Diarrhea rosuvastatin [From Crestor] AdvReac myalgia Verified 10/15/22 09:31 Family History Father CAD (coronary artery disease) Brother CAD (coronary artery disease) Surgical History History of coronary artery stent placement (02/14/07) History of knee replacement History of kyphoplasty (~05/2020) History of left heart catheterization (12/27/19) History of left hip replacement History of radiofrequency ablation procedure for cardiac arrhythmia (2011) History of repair of rotator cuff Social History housing: assisted living facility Smoking Status: Former smoker how long ago did patient quit smokin years ago alcohol intake: former substance use type: does not use caffeine: No ROS ROS ED Constitutional Constitutional ED: Denies chills or fever(s) Eyes Eyes: Denies blurry vision or change in vision ENT ENT ED: Denies rhinorrhea or sore throat Cardiovascular Cardiovascular: Denies chest pain or palpitations Respiratory/Chest Respiratory/Chest: Denies cough or dyspnea Gastrointestinal Gastrointestinal: Denies nausea or vomiting Genitourinary Genitourinary ED: Denies dysuria or hematuria Musculoskeletal Musculoskeletal: Denies back pain or neck pain Integumentary Denies abscess or rash Neurologic Neurologic: Denies headache(s) or weakness Allergic/Immunologic Allergic/Immunologic ED: Denies mouth swelling or urticaria EXAM Physical Exam Const Vital Signs: 11/18/22 07:50 Temperature 97.8 F Temperature Source Oral Pulse Rate 77 Respiratory Rate 16 Blood Pressure 175/99 H Blood Pressure Mean 124 Pulse Ox 99 Oxygen Delivery Method Room Air Positive well nourished and well developed General Appearance ED: well developed HEENT Reports moist mucous membranes Neck supple and no JVD Resp normal respiratory effort and clear to auscultation bilaterally Cardio regular rate and no murmurs Rhythm: abnormal rhythm irregularly irregular GI normal to inspection, nondistended, normoactive bowel sounds and non-tender Palpation: soft Extremity normal to inspection General Extremety ED: Negative for edema or tenderness General Extremity: Negative for edema Neuro oriented x3, CN's II-XII intact bilaterally and no sensory deficits noted Sensorium / Orientation: alert Motor Exam: strength 5/5 throughout Psych mental status grossly normal Skin no rashes or lesions noted MDM MDM MDM Narrative Medical decision making narrative: Differential diagnosis includes TIA, stroke, cardiac dysrhythmia, cardiac ischemia, electrolyte abnormality, and anemia. EKG will be obtained to assess for cardiac dysrhythmia and cardiac ischemia. CT scan of the brain will be obtained to assess for stroke and TIA. Chest x-ray will be obtained to assess for cardiomegaly and pneumonia. CBC will be obtained to assess for leukocytosis and anemia. Basic metabolic profile will be obtained to assess for electrolyte abnormality and renal function. PT was INR and PTT will be obtained to assess for coagulopathy. Lab Data Attestation: I reviewed the patient's lab results. Lab results narrative: CBC was reviewed and was within normal limits. Comprehensive metabolic profile was reviewed and was within normal limits. PT with INR and PTT were reviewed. Pro time was 22.7 and INR was 2.0. PTT was 48.1. Urinalysis was reviewed and was within normal limits. Labs: Laboratory Results - last 24 hr 11/18/22 11/18/22 07:58 10:05 WBC 7.3 RBC 4.63 Hgb 13.9 Hct 42.8 MCV 92.4 MCH 30.0 MCHC 32.5 RDW Std Deviation 44.2 H RDW Coeff of Sumeet 13.1 Plt Count 289 MPV 10.5 Immature Gran % (Auto) 0.300 Neut % (Auto) 59.9 Lymph % (Auto) 26.8 [place] % (Auto) 9.2 Eos % (Auto) 3.4 Baso % (Auto) 0.4 Absolute Neuts (auto) 4.4 Absolute Lymphs (auto) 1.95 Nucleated RBC % 0 PT 22.7 H INR 2.0 APTT 48.1 H Sodium 140 Potassium 3.9 Chloride 108 H Carbon Dioxide 30.0 Anion Gap 2 L BUN 14 Creatinine 1.03 H Estim Creat Clear Calc 31.83 Est GFR (MDRD) Af Amer 65 Est GFR (MDRD) Non-Af 54 L BUN/Creatinine Ratio 13.6 Glucose 126 H Calcium 8.7 Total Bilirubin 0.40 AST 15 ALT 13 Alkaline Phosphatase 76 Total Protein 6.9 Albumin 3.3 Globulin 3.6 Albumin/Globulin Ratio 0.9 Urine Color Yellow Urine Clarity Sl. Cloudy Urine pH 7.0 Ur Specific [place] 1.010 Urine Protein 15 H Urine Glucose (UA) Normal Urine Ketones Negative Urine Occult Blood Negative Urine Nitrite Negative Urine Bilirubin Negative Urine Urobilinogen Normal Ur Leukocyte Esterase 25 H Urine RBC 0 SEEN Urine WBC 0-5 SEEN Ur Squamous Epith Cells 0-5 SEEN Urine Bacteria 0 SEEN Urine Mucus 0 SEEN Radiography Diagnostic Testing: Clinical Impression(s) from Imaging Studies Brain CT 11/18/22 08:29 IMPRESSION: No acute intracranial findings. Stable exam since 11/14/2022. Electronically Signed: Codey Cabrera DO at 9:00 EDT , CT scan of the brain was obtained. There is no acute intracranial abnormality. This was interpreted by the radiologist and was also independently reviewed by myself. EKG Initial EKG: Attestation: I personally reviewed and interpreted this EKG as follows: Interpretation: No Acute Injury Pattern and Atrial Fibrillation (72) Comments: EKG was obtained. On my independent interpretation, it shows atrial fibrillation with a rate of 72. QRS interval was within normal limits at 96 ms. QTc interval was normal at 470 ms. There is borderline left axis deviation at -38. There are no acute ST or T wave changes noted. This was unch anged compared to previous EKG dated 11/14/2022. Prior EKG tracings: available for review Prior: Unchanged (11/14/2022) Treatment and Re-Evaluation :: Patient was advised of her findings. Patient's symptoms completely resolved. Patient was recently admitted for TIA within the last few days. Patient is scheduled to follow-up with neurology. Patient was instructed to continue with this appointment. Patient was instructed to continue her medications as previously prescribed. Patient was instructed to follow-up with her primary care physician in 3 to 5 days as well. Patient understood and was agreeable with the plan. All questions were answered. Discharge Plan Triage Chief Complaint: Neuro S/Sx ED Provider: Mo Corea Dx/Rx/DC Orders Clinical Impression: Aphasia, Dementia Instructions: ED TIA: Transient Ischemic Attack Prescriptions: No Action lisinopril 5 mg tablet 5 mg PO DAILY multivitamin capsule 1 cap PO DAILY ascorbate calcium (vitamin C) 500 mg tablet 500 mg PO DAILY Hold Instructions: Order Completed melatonin 10 mg capsule 10 mg PO HS PRN (Reason: sleep) warfarin 2.5 mg tablet 2.5 mg PO DAILY Patient Comments: TAKE 1 TABLET BY MOUTH ONCE DAILY Rx Instructions: Managed by PCP donepezil 10 mg tablet 10 mg PO QHS Qty: 30 5RF Rx Instructions: Begin after completing one month of treatment of donepezil 5mg nightly simvastatin 20 MG tablet 20 mg PO DAILY diphenhydramine HCl [Allergy] 25 mg tablet 25 mg PO QHS PRN (Reason: allergy symptoms) omeprazole 20 mg capsule,delayed release(DR/EC) 20 mg PO DAILY metoprolol succinate 25 mg tablet extended release 24 hr 25 mg PO BID Qty: 90 3RF Primary Care Provider: Rosemary Doran Referrals: Rosemary Doran MD [Primary Care Provider] - 3-5 Days Disposition Disposition: Home, Self Care
[2022-11-18 08:28] LABS: Absolute Lymphocyte Count 1.95 X10^3/uL (0.83-4.51); Absolute Neutrophil Count 4.4 X10^3/uL (2.0-7.7); Basophil# 0.03 X10^3/uL; Basophil% 0.4 % (0-1); Eosinophil# 0.25 X10^3/uL; Eosinophils% 3.4 % (0-5); Hematocrit 42.8 % (37-47); Hemoglobin 13.9 g/dL (12.0-15.0); Lymphocyte # 1.95 X10^3/ul (0.83-4.51); Lymphocyte % 26.8 % (19-41); Mean Corp Hgb Conc 32.5 g/dL (32-36); Mean Corpuscular Volume 92.4 fL (81-99); Mean Platelet Vol. 10.5 fl (6.2-12.0); Monocyte# 0.67 X10^3/uL; Monocyte% 9.2 % (0-10); NRBC Flagged by Analyzer 0 % (0-5); Neutrophil # 4.35 X10^3/uL (2.7-7.7); Neutrophil % 59.9 % (47-70); Platelet Count 289 K/mm3 (150-450); RBC Distribution Width CV 13.1 % (11.6-14.6); RBC Distribution Width SD 44.2 fl (35.1-43.9); Red Blood Count 4.63 M/mm3 (4.2-5.4); White Blood Count 7.3 K/mm3 (4.4-11.0)
--- NOTE | 2022-11-18 08:29 | CT_ITS ---
INDICATION: TIA EXAMINATION: CT BRAIN - CT Head or Brain W/O Contrast Injection TECHNIQUE: Multiple axial images were obtained of the head without intravenous contrast. A radiation dose optimization technique was used for this scan. IV Contrast dosage and agent: None. COMPARISON: CT head without contrast from 11/14/2022, 09/08/2022. FINDINGS: No acute intraparenchymal or extra-axial hemorrhage. No significant midline shift. Ventricles are stable in configuration. No hydrocephalus. No acute large territory cortical infarction. Similar extension distribution of chronic small vessel ischemic changes. No significant cerebral edema. Soft tissues are unremarkable. No acute calvarial fracture. Orbits and globes are intact. The paranasal sinuses and mastoid air cells are clear. CT/Brain/Head without Contrast IMPRESSION: No acute intracranial findings. Stable exam since 11/14/2022. Electronically Signed: Codey Cabrera DO at 9:00 EDT ,
[2022-11-18 08:44] LABS: ALB/GLOB Ratio 0.9 RATIO (0.9-2.4); AST(SGOT) 15 U/L (15-37); Alanine Aminotransfer ALT/SGPT 13 U/L (13-56); Albumin, Serum 3.3 g/dL (3.2-5.0); Alkaline Phosphatase 76 U/L (45-117); Anion Gap 2 (5-15); BUN 14 mg/dL (7-18); BUN/Creat Ratio 13.6 RATIO (10-20); Calcium,Total 8.7 mg/dL (8.5-10.1); Chloride 108 mmol/L (98-107); Creatinine, Serum 1.03 mg/dL (0.55-1.02); EST Glomerular Filtration Rate 54 mL/min (>60); Est Glom Filt Rate - Afr Amer 65 mL/min (>60); Estimated Creatinine Clearance 31.83 ml/min; Globulin 3.6 g/dL (2.2-4.2); Glucose 126 mg/dL (74-106); Potassium 3.9 mmol/L (3.5-5.1); Protein, Total 6.9 g/dL (6.4-8.2); Sodium Level 140 mmol/L (136-145)
[2022-11-18 08:51] LABS: Prothrombin Time (Protime)PT. 22.7 SECONDS (11.7-14.9)
[2022-11-18 08:52] LABS: Partial Thromboplast Time 48.1 Seconds (24.1-36.2)
[2022-11-18 10:12] LABS: Bacteria 0 SEEN /hpf (None Seen); Mucous, Urine 0 SEEN /hpf (<or=2+); Red Blood Cells-Urine 0 SEEN /hpf (0-5)
[2022-11-18 10:20] LABS: Color, Urine Yellow (Yellow); Glucose, Dipstick Normal (Normal); Ketone-Dipstick Negative (Negative); Leukocyte Esterase-Dipstick 25 /ul (Negative); Nitrite-Dipstick Negative (Negative); Occult Blood-Urine Negative /ul (Negative); Protein-Dipstick 15 mg/dl (Negative); Urine Bilirubin Dipstick Negative (Negative); Urine Clarity Sl. Cloudy (Clear); Urine Urobilinogen Normal (Normal)
[2022-11-18 10:50] LABS: Squamous Epithelial Cells - UA 0-5 SEEN /hpf (5-10); White Blood Cells 0-5 SEEN /hpf (0-5)
[2022-11-18 11:10] VITALS: BP 173/102; PULSE 76; RESP 16; O2SAT 96
[2022-11-18 11:24] VITALS: BP 137/82; PULSE 76; RESP 15; O2SAT 98
== END 2022-11-18 11:25 | disposition home or self-care (01) ==
PROVIDERS: Emergency Provider Emergency Medicine; PCP Family Medicine; Visit Provider Emergency Medicine
DX: R47.01 Aphasia (principal); F03.90 Unspecified dementia, unspecified severity, without behavioral disturbance, psychotic disturbance, mood disturbance, and anxiety; I13.0 Hypertensive heart and chronic kidney disease with heart failure and stage 1 through stage 4 chronic kidney disease, or unspecified chronic kidney disease; I50.32 Chronic diastolic (congestive) heart failure; E11.22 Type 2 diabetes mellitus with diabetic chronic kidney disease; I48.20 Chronic atrial fibrillation, unspecified; N18.9 Chronic kidney disease, unspecified; E78.5 Hyperlipidemia, unspecified; Z87.891 Personal history of nicotine dependence; I25.10 Atherosclerotic heart disease of native coronary artery without angina pectoris; Z86.16 Personal history of COVID-19; I25.2 Old myocardial infarction
CPT/HCPCS: 70450; 80053; 81001; 85025; 85610; 85730; 93005; 99285; A4216

== ENCOUNTER → 2022-11-20 | Outpatient (REF) | payer MEDICARE, SELFPAY ==
[2022-11-20 09:29] LABS: Hemoglobin 13.1 g/dL (12.0-15.0); Mean Corp Hgb Conc 32.8 g/dL (32-36); Mean Corpuscular Volume 91.5 fL (81-99); Mean Platelet Vol. 10.8 fl (6.2-12.0); Platelet Count 310 K/mm3 (150-450); RBC Distribution Width CV 12.9 % (11.6-14.6); RBC Distribution Width SD 43.4 fl (35.1-43.9); Red Blood Count 4.37 M/mm3 (4.2-5.4); White Blood Count 7.4 K/mm3 (4.4-11.0)
[2022-11-20 09:40] LABS: Prothrombin Time (Protime)PT. 22.6 SECONDS (11.7-14.9)
[2022-11-20 11:15] LABS: ALB/GLOB Ratio 0.9 RATIO (0.9-2.4); AST(SGOT) 15 U/L (15-37); Alanine Aminotransfer ALT/SGPT 13 U/L (13-56); Albumin, Serum 3.1 g/dL (3.2-5.0); Alkaline Phosphatase 72 U/L (45-117); Anion Gap 3 (5-15); BUN 14 mg/dL (7-18); BUN/Creat Ratio 12.8 RATIO (10-20); Calcium,Total 8.6 mg/dL (8.5-10.1); Chloride 105 mmol/L (98-107); Cholesterol 167 mg/dL (200); Creatinine, Serum 1.09 mg/dL (0.55-1.02); EST Glomerular Filtration Rate 50 mL/min (>60); Est Glom Filt Rate - Afr Amer 61 mL/min (>60); Globulin 3.6 g/dL (2.2-4.2); Glucose 153 mg/dL (74-106); High Density Lipoprotein 55 mg/dL; Potassium 4.2 mmol/L (3.5-5.1); Protein, Total 6.7 g/dL (6.4-8.2); Sodium Level 138 mmol/L (136-145); Triglycerides 120 mg/dL; Very Low Density Lipoprotein 24 mg/dL (5-40)
== END ==
PROVIDERS: PCP Family Medicine; Visit Provider Family Medicine
DX: I10 Essential (primary) hypertension (principal); E78.5 Hyperlipidemia, unspecified; Z79.01 Long term (current) use 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
CPT/HCPCS: 36415; 80053; 80061; 85027; 85610

== ENCOUNTER → 2022-12-09 | Outpatient (REF) | payer MEDICARE, SELFPAY ==
[2022-12-09 08:37] LABS: Anion Gap 5 (5-15); BUN 16 mg/dL (7-18); BUN/Creat Ratio 14.4 RATIO (10-20); Calcium,Total 8.7 mg/dL (8.5-10.1); Chloride 107 mmol/L (98-107); Creatinine, Serum 1.11 mg/dL (0.55-1.02); EST Glomerular Filtration Rate 49 mL/min (>60); Est Glom Filt Rate - Afr Amer 60 mL/min (>60); Glucose 125 mg/dL (74-106); Potassium 4.8 mmol/L (3.5-5.1); Sodium Level 138 mmol/L (136-145)
[2022-12-09 08:59] LABS: Absolute Lymphocyte Count 1.65 X10^3/uL (0.83-4.51); Absolute Neutrophil Count 4.3 X10^3/uL (2.0-7.7); Basophil# 0.03 X10^3/uL; Basophil% 0.4 % (0-1); Eosinophil# 0.25 X10^3/uL; Eosinophils% 3.6 % (0-5); Hematocrit 39.7 % (37-47); Hemoglobin 13.1 g/dL (12.0-15.0); Lymphocyte # 1.65 X10^3/ul (0.83-4.51); Lymphocyte % 23.7 % (19-41); Mean Corpuscular Hgb 30.5 pg (27.0-32.0); Mean Corpuscular Volume 92.3 fL (81-99); Mean Platelet Vol. 10.7 fl (6.2-12.0); Monocyte# 0.72 X10^3/uL; Monocyte% 10.4 % (0-10); NRBC Flagged by Analyzer 0 % (0-5); Neutrophil # 4.28 X10^3/uL (2.7-7.7); Neutrophil % 61.6 % (47-70); Platelet Count 293 K/mm3 (150-450); RBC Distribution Width CV 13.1 % (11.6-14.6)
[2022-12-09 11:35] LABS: Hemoglobin A1c 6.7 % (3.8-5.6)
== END ==
PROVIDERS: PCP Family Medicine; Visit Provider Family Medicine
DX: E10.9 Type 1 diabetes mellitus without complications (principal); Z79.899 Other long term (current) drug therapy
CPT/HCPCS: 36415; 80048; 83036; 85025

== ENCOUNTER → 2022-12-19 | Outpatient (REF) | payer MEDICARE, SELFPAY ==
[2022-12-19 09:31] LABS: INR Fingerstick 2.8; Prothrombin Time Fingerstick 29.7 SEC (11.7-14.9)
== END ==
PROVIDERS: PCP Family Medicine; Visit Provider Family Medicine
DX: Z79.01 Long term (current) use 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 (principal)
CPT/HCPCS: 36416; 85610

== ENCOUNTER 2022-12-27 15:26 | Observation (INO) | payer MEDICARE, SELFPAY ==
[2022-12-27] VITALS (7 sets, daily range): BP systolic 109–182; BP diastolic 73–110; PULSE 78–89; RESP 14–18; TEMP 36.3–36.6; O2SAT 95–99; BMI 33.7; BMI 32.1
--- NOTE | 2022-12-27 15:25 | CT_ITS ---
We are attempting to reach an attending provider to discuss findings. An addendum with communication details will be sent when the communication is complete. HISTORY: Neuro deficit, acute, stroke suspected. TECHNIQUE: Multiple axial images were obtained of the head without intravenous contrast. A radiation dose optimization technique was used for this scan. 246 images. COMPARISON: 11/18/2022. FINDINGS: BRAIN PARENCHYMA: Multiple foci and zones of low attenuation in the bilateral cerebral white matter compatible with chronic small vessel ischemic gliosis. No acute intra-axial hemorrhage identified. CSF SPACES: Generalized volume loss. No midline shift or other significant mass effect. No acute extra-axial hemorrhage seen. OTHER: Intact calvarium. No significant air fluid levels in the paranasal sinuses or mastoid air cells. Bilateral lens resections. ASPECTS Score for Acute Strokes: 10 CT/STROKE Brain/Head without Cont IMPRESSION: No acute intracranial process identified. Moderate chronic involutional and white matter changes. Electronically Signed: Ban Avila MD at 15:37 EDT ,
--- NOTE | 2022-12-27 15:28 | CT_ITS ---
We are attempting to reach an attending provider to discuss findings. An addendum with communication details will be sent when the communication is complete. INDICATION: cva EXAMINATION: CTA BRAIN WITH CONTRAST TECHNIQUE: Noncontrast axial images were obtained of the brain. Subsequently, routine carotid CT angiogram protocol was performed without and with IV contrast. In addition, images were obtained of the [place]. NASCET criteria using the distal ICAs for comparison were used for evaluation of stenoses. 3D reconstructions were reviewed. A radiation dose optimization technique was used for this scan. IV Contrast dosage and agent: COMPARISON: FINDINGS: --CTA NECK: AORTIC ARCH AND BRANCHES: Borderline ascending aorta measuring 4 cm. Bovine arch with mild atherosclerotic calcifications. RIGHT CCA: No occlusion, significant stenosis or dissection. RIGHT CAROTID BULB: Mild atherosclerotic calcifications without hemodynamically significant stenosis. RIGHT ICA: No occlusion, significant stenosis or dissection. LEFT CCA: No occlusion, significant stenosis or dissection. LEFT CAROTID BULB: Mild atherosclerotic calcifications without hemodynamically significant stenosis. LEFT ICA: No occlusion, significant stenosis or dissection. RIGHT VERTEBRAL ARTERY: No occlusion, significant stenosis or dissection. LEFT VERTEBRAL ARTERY: No occlusion, significant stenosis or dissection. NECK SOFT TISSUES: Unremarkable. --CTA HEAD: --Anterior circulation: ICAs: Atherosclerotic calcifications at the cavernous portion bilaterally with less than 50% luminal stenosis. ACAs: No significant stenosis at the visualized segments. ACOM: Present. MCAs: No significant stenosis at the visualized segments. --Posterior circulation: PCOMs: Nonvisualization on the right. Patent on the left. special needs tutor: There is again noted limited opacification of the left posterior cerebral artery similar to previous study. BASILAR ARTERY: No significant stenosis. VERTEBRAL ARTERIES: No significant stenosis at the intradural/visualized segments. No evidence of intracranial aneurysm or vascular malformation. CT/CTA Head AND Neck W/ Contrast IMPRESSION: Stable CTA Carotid, and CTA Brain with the previous study with no acute changes. Electronically Signed: Chuy Kruger DO at 16:21 EDT Reading Location ID and State: [facility] / [place] Tel [phone], Service support ,
--- NOTE | 2022-12-27 15:48 | EDS_ITS ---
HPI History of Present Illness Chief Complaint: Stroke Alert Informant: patient, EMS and SNF Onset/Context/Timing Onset: Today Narrative Narrative: Consider EMS as a stroke alert. Patient reportedly was last known well at 1 PM this afternoon. When staff went to take her snack this afternoon they noted her speech to be garbled. She has no other complaints. Patient has had this happen 6 other times and has been worked up for stroke/TIA. Most recent evaluation was earlier this month. EMS notes patient is able to answer simple questions, but if you ask her to repeat a phrase her speech is garbled. [facility] Medical History Atherosclerotic heart disease of 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) Osteoarthritis Paroxysmal atrial fibrillation Persistent atrial fibrillation Pleural effusion on right (09/2019) Spinal stenosis Type 2 diabetes mellitus Home Medications simvastatin 20 mg tablet 20 mg PO DAILY 10/11/19 [History Last Taken Unknown] multivitamin 1 cap PO DAILY 12/10/19 [History Last Taken Unknown] ascorbate calcium (vitamin C) 500 mg tablet 500 mg PO DAILY 01/31/21 [History Last Taken Unknown] metoprolol succinate 25 mg tablet,extended release 24 hr 25 mg PO BID #90 tabs 05/16/22 [Rx Last Taken Unknown] donepezil 10 mg tablet 10 mg PO QHS #30 tabs 09/18/22 [Rx Last Taken Unknown] warfarin 2.5 mg tablet 2.5 mg PO DAILY 10/15/22 [History Last Taken Unknown] diphenhydramine HCl 25 mg tablet (Allergy) 25 mg PO QHS PRN allergy symptoms 11/14/22 [History Last Taken Unknown] omeprazole 20 mg capsule,delayed release 20 mg PO DAILY reflux 11/14/22 [History Last Taken Unknown] Allergy/AdvReac Type Severity Reaction Status Date / Time latex Allergy rash Verified 12/27/22 15:40 amiodarone AdvReac Severe Hair Verified 12/27/22 15:40 falling out in gobs atorvastatin [From Lipitor] AdvReac myalgia Verified 12/27/22 15:40 codeine AdvReac Nausea Verified 12/27/22 15:40 meperidine [From Demerol] AdvReac Nausea/Vom/ Verified 12/27/22 15:40 Diarrhea rosuvastatin [From Crestor] AdvReac myalgia Verified 12/27/22 15:40 Family History Father CAD (coronary artery disease) Brother CAD (coronary artery disease) Surgical History History of coronary artery stent placement (02/14/07) History of knee replacement History of kyphoplasty (~05/2020) History of left heart catheterization (12/27/19) History of left hip replacement History of radiofrequency ablation procedure for cardiac arrhythmia (2011) History of repair of rotator cuff Social History housing: assisted living facility Smoking Status: Former smoker how long ago did patient quit smokin years ago alcohol intake: former substance use type: does not use caffeine: No ROS ROS ED Constitutional Constitutional ED: Denies chills or fever(s) Eyes Eyes: Reports discharge from eye(s); Denies change in vision ENT ENT ED: Reports discharge from eye(s); Denies rhinorrhea or sore throat Cardiovascular Cardiovascular: Denies chest pain or palpitations Respiratory/Chest Respiratory/Chest: Denies cough or dyspnea Gastrointestinal Gastrointestinal: Denies abdominal pain, nausea or vomiting Genitourinary Genitourinary ED: Denies dysuria Musculoskeletal Musculoskeletal: Denies back pain or extremity pain Integumentary Denies Abrasions or rash Neurologic Neurologic: Denies headache(s) or weakness Allergic/Immunologic Allergic/Immunologic ED: Denies lip swelling or urticaria EXAM Physical Exam Const Vital Signs: 12/27/22 15:36 12/27/22 15:42 12/27/22 15:27 Temperature 97.9 F 97.9 F Temperature Source Temporal Temporal Pulse Rate Respiratory Rate 18 18 Blood Pressure 153/96 H 153/98 H Blood Pressure Mean 115 116 Pulse Ox 96 96 Oxygen Delivery Method Room Air Room Air Room Air 12/27/22 15:27 12/27/22 15:27 12/27/22 15:54 Temperature Temperature Source Pulse Rate 79 80 84 Respiratory Rate 14 16 16 Blood Pressure 182/100 H 182/100 H 182/100 H Blood Pressure Mean 127 127 127 Pulse Ox 96 96 96 Oxygen Delivery Method Room Air Room Air Room Air 12/27/22 15:57 Temperature Temperature Source Pulse Rate 78 Respiratory Rate 16 Blood Pressure 109/73 Blood Pressure Mean 85 Pulse Ox 96 Oxygen Delivery Method Room Air Positive well nourished and well developed General Appearance ED: well developed HEENT Reports moist mucous membranes Eyes EOMs intact bilaterally Chest Wall inspection of chest normal and palpation of chest normal Resp normal respiratory effort and clear to auscultation bilaterally Cardio Rate: regular rate Rhythm: regular rhythm GI soft to palpation and non-tender Extremity normal to inspection Neuro Neuro Narrative: see NIH stroke score Psych mental status grossly normal NIHSS NIHSS Initial: 1a Level of Consciousness: 0 1b LOC Questions (Score 2 if aphasic/stupor): 0 1c LOC Commands (Only score 1st attempt): 0 2 Best Gaze (If aphasic, use reflexive mvmts.): 0 3 Visual: 0 4 Facial Palsy: 0 5 Motor Arm Right (UN = amputation/fusion): 0 5 Motor Arm Left: 0 6 Motor Leg Right: 0 6 Motor Leg Left: 0 7 Limb ataxia (Only + if out of proportion): 0 8 Sensory (Aphasia/stupor=0 or 1, coma=2): 0 9 Best Language: 1 10 Dysarthria (mute, coma=2, intubated=UN): 1 11 Extinction and Inattention (only scored if +): 0 Total Score: 2 MDM MDM MDM Narrative Medical decision making narrative: Blood was met at the EMS doors. Patient quickly examined and sent immediately to CT. I did review her recent work-ups. On November 14 patient was admitted for a TIA. She had a CT scan of the head along with a CTA of the head and neck. She had an MRI of the brain that showed no evidence of stroke. She was discharged home on the . She then returned to the emergency room in November 18 with another, resolved, episode of garbled speech. CT was unremarkable and patient was discharged back to her assisted living facility at that time. Labwork obtained to evaluate for leukocytosis, anemia, and electrolyte derangement. EKG obtained to evaluate for cardiac arrhythmia/ischemia. Chest x-ray obtained to evaluate for acute lung pathology, cardiac size, or mediastinal abnormality. History & Record Review Discussion w/independent historian: Significant other Additional record(s) reviewed:: Prior inpatient record, Prior ED visit and Prior labs Lab Data Attestation: I reviewed the patient's lab results. Labs: Laboratory Results - last 24 hr 12/27/22 15:45 WBC 7.5 RBC 4.12 L Hgb 12.1 Hct 38.5 MCV 93.4 MCH 29.4 MCHC 31.4 L RDW Std Deviation 44.5 H RDW Coeff of Sumeet 13.2 Plt Count 274 MPV 10.1 Immature Gran % (Auto) 0.400 Neut % (Auto) 57.4 Lymph % (Auto) 27.9 [place] % (Auto) 10.8 H Eos % (Auto) 2.8 Baso % (Auto) 0.7 Absolute Neuts (auto) 4.3 Absolute Lymphs (auto) 2.10 Nucleated RBC % 0 PT 25.7 H INR 2.3 APTT 48.2 H Sodium 138 Potassium 4.1 Chloride 106 Carbon Dioxide 28.0 Anion Gap 4 L BUN 19 H Creatinine 1.01 Estim Creat Clear Calc 32.46 Est GFR (MDRD) Af Amer 67 Est GFR (MDRD) Non-Af 55 L BUN/Creatinine Ratio 18.8 Glucose 119 H Calcium 8.1 L Troponin I High Sens 10 Radiography Chest X-Ray - ED: 1 View, Read by ED Physician and Chronic Changes Diagnostic Testing: Clinical Impression(s) from Imaging Studies Brain CT 12/27/22 15:25 IMPRESSION: No acute intracranial process identified. Moderate chronic involutional and white matter changes. Electronically Signed: Ban Avila MD at 15:37 EDT , ADDENDUM: 12/27/22 1548 IMPRESSION: No acute intracranial process identified. Moderate chronic involutional and white matter changes. N.B. : The above Results were Read Back by Ban vAila MD to Lali Pimentel MD, and understanding confirmed on 12/27/2022 15:42:32 (ET). Electronically Signed: Ban Avila MD at 15:37 EDT , Head/Neck CTA 12/27/22 15:28 IMPRESSION: Stable CTA Carotid, and CTA Brain with the previous study with no acute changes. Electronically Signed: Chuy Kruger DO at 16:21 EDT , ADDENDUM: 12/27/22 1630 IMPRESSION: Stable CTA Carotid, and CTA Brain with the previous study with no acute changes. N.B. : The above Results were Read Back by Chuy Kruger DO to Lali Pimentel MD, and understanding confirmed on 12/27/2022 16:23:14 (ET). Electronically Signed: Chuy Kruger DO at 16:21 EDT , Chest X-Ray 12/27/22 16:24 IMPRESSION: Mild interstitial prominence. Electronically Signed: Chuy Kruger DO at 16:33 EDT , EKG Initial EKG: Attestation: I personally reviewed and interpreted this EKG as follows: Interpretation: Atrial Fibrillation (Atrial fibrillation with a ventricular rate of 79 bpm. No acute ischemia.) Treatment and Re-Evaluation Narrative: Patient was reexamined in the room with neurologist from [facility]. She still has some difficulty with speech, but she is able to read sentences much clearer than when she first arrived to the ER. Patient feels that she is back to baseline. CT of the head as well as CTA of the head and neck reveals no acute findings. BC was normal white count at 7.5 with a hemoglobin of 12.1. INR is therapeutic at 2.3. Chemistry studies are unremarkable with normal renal function, creatinine 1.01. Her glucose is 119. Her troponin is normal at 10. Neurology from [facility] felt that the patient should be admitted for MRI with contrast as well as an EEG. With patient now having 7 episodes of the same symptoms he is concerned that this may be an atypical seizure. Stroke Documentation Questions Stroke Team Activated: Yes Was Patient considered for Endovascular Intervention?: No-CTA negative, determined not to be an endovascular candidate IV Thrombolytic Administered: No (Patient therapeutic on Coumadin) Discharge Plan Triage Chief Complaint: Stroke Alert ED Provider: Lali Pimentel Dx/Rx/DC Orders Clinical Impression: Difficulty with speech Prescriptions: No Action multivitamin capsule 1 cap PO DAILY ascorbate calcium (vitamin C) 500 mg tablet 500 mg PO DAILY Hold Instructions: Order Completed warfarin 2.5 mg tablet 2.5 mg PO DAILY Patient Comments: TAKE 1 TABLET BY MOUTH ONCE DAILY Rx Instructions: Managed by PCP donepezil 10 mg tablet 10 mg PO QHS Qty: 30 5RF Rx Instructions: Begin after completing one month of treatment of donepezil 5mg nightly simvastatin 20 MG tablet 20 mg PO DAILY diphenhydramine HCl [Allergy] 25 mg tablet 25 mg PO QHS PRN (Reason: allergy symptoms) omeprazole 20 mg capsule,delayed release(DR/EC) 20 mg PO DAILY metoprolol succinate 25 mg tablet extended release 24 hr 25 mg PO BID Qty: 90 3RF Primary Care Provider: Rosemary Doran Referrals: Rosemary Doran MD [Primary Care Provider] - Disposition Disposition: Acute [facility]
[2022-12-27 15:56] LABS: Absolute Neutrophil Count 4.3 X10^3/uL (2.0-7.7); Basophil# 0.05 X10^3/uL; Basophil% 0.7 % (0-1); Eosinophil# 0.21 X10^3/uL; Eosinophils% 2.8 % (0-5); Hematocrit 38.5 % (37-47); Hemoglobin 12.1 g/dL (12.0-15.0); Lymphocyte % 27.9 % (19-41); Mean Corp Hgb Conc 31.4 g/dL (32-36); Mean Corpuscular Hgb 29.4 pg (27.0-32.0); Mean Corpuscular Volume 93.4 fL (81-99); Mean Platelet Vol. 10.1 fl (6.2-12.0); Monocyte# 0.81 X10^3/uL; Monocyte% 10.8 % (0-10); NRBC Flagged by Analyzer 0 % (0-5); Neutrophil # 4.33 X10^3/uL (2.7-7.7); Neutrophil % 57.4 % (47-70); Platelet Count 274 K/mm3 (150-450); RBC Distribution Width CV 13.2 % (11.6-14.6); RBC Distribution Width SD 44.5 fl (35.1-43.9); Red Blood Count 4.12 M/mm3 (4.2-5.4); White Blood Count 7.5 K/mm3 (4.4-11.0)
[2022-12-27 16:14] LABS: International Normalized Ratio 2.3; Partial Thromboplast Time 48.2 Seconds (24.1-36.2); Prothrombin Time (Protime)PT. 25.7 SECONDS (11.7-14.9)
[2022-12-27 16:16] LABS: Anion Gap 4 (5-15); BUN 19 mg/dL (7-18); BUN/Creat Ratio 18.8 RATIO (10-20); Calcium,Total 8.1 mg/dL (8.5-10.1); Chloride 106 mmol/L (98-107); Creatinine, Serum 1.01 mg/dL (0.55-1.02); EST Glomerular Filtration Rate 55 mL/min (>60); Est Glom Filt Rate - Afr Amer 67 mL/min (>60); Estimated Creatinine Clearance 32.46 ml/min; Glucose 119 mg/dL (74-106); Potassium 4.1 mmol/L (3.5-5.1); Sodium Level 138 mmol/L (136-145); Troponin-I HS 10 pg/mL (3.0-54.0)
--- NOTE | 2022-12-27 16:24 | RAD_ITS ---
INDICATION: Neuro deficit, acute, stroke suspected EXAMINATION/TECHNIQUE: X-RAY - XR Chest 1 View COMPARISON: November 14, 2022 FINDINGS: LINES/DEVICES: None. LUNGS: No consolidation, edema or effusion. Mild interstitial prominence. No pneumothorax. MEDIASTINUM AND CARDIOVASCULAR STRUCTURES: Cardiac silhouette not enlarged. Central airways and mediastinal contour are unremarkable. BONES AND SOFT TISSUES: Degenerative vertebral changes. RAD/Chest 1 View IMPRESSION: Mild interstitial prominence. Electronically Signed: Chuy Kruger DO at 16:33 EDT ,
--- NOTE | 2022-12-27 17:08 | MRI_ITS ---
STUDY: MRI BRAIN WITH AND WITHOUT CONTRAST REASON FOR EXAM: Female, 87 years old. recurrent Dysarthria, garbled speech since 1 pm today, confusion TECHNIQUE: Standardized multiplanar fat and water weighted pulse sequences were obtained. IV Yes CLARISCAN was administered for the contrast portion of the examination. COMPARISON: CT of the brain December 27, 2022 MRI of the brain November 14, 2022 FINDINGS: Mild atrophy and periventricular white matter ischemic change without mass effect or restricted diffusion. Normal bilateral basal ganglia. Normal thalami. There is no extra-axial fluid accumulation. Normal flow voids within the major intracranial circulation suggesting patency by spin echo criteria. Normal venous enhancement. There is no enhancing intra-axial or extra-axial abnormality. Normal sella turcica, pituitary gland, infundibular stalk, optic chiasm and hypothalamus. Normal tectal plate and pineal gland. Normal midbrain, doreen and medulla. Normal cerebellum. Normal basal cisterns. Normal bilateral temporal bones. Normal bilateral internal auditory canals. Postsurgical changes of the orbits. Normal visualized paranasal sinuses. Normal calvarium and skull base. Normal visualized soft tissue structures. Normal visualized upper cervical spine. MRI/Brain W/WO Contrast IMPRESSION: Mild atrophy and periventricular white matter ischemic change without evidence for acute infarct. No enhancing lesions following contrast administration Electronically Signed: Sy Auguste MD at 19:02 EDT ,
--- NOTE | 2022-12-27 17:09 | HP.PCM.HOS_ITS ---
HPI - General General Date of Admission: 12/27/22 Date of Service: 12/27/22 Chief Complaint: Speech abnormalities HPI Narrative EZRA GONZALEZ, is a 87 F who presented to the emergency department at [facility] on 12/27/2022 with speech abnormalities that started after 1 PM this afternoon. She resides at [facility]. She was last known well at 1 PM in the afternoon and when the staff went to take her a snack they noted that her speech was garbled. She had no other complaints. She reported that this is the seventh time this is happened and she has not had any answers as to why it continues to happen. Imaging has been unremarkable for strokes. She is fully baseline on Coumadin and her INR is therapeutic at this time. He does have carotid artery stenosis for which she is following with vascular surgery and she also follows with neurology. Each episode of dysarthria/aphasia is brief and last less than 30 minutes. The patient states that she feels this episode is lasting a bit longer and she is complaining of having some word finding difficulties however during my exam her speech is quite fluid and she only forgets the name of where she is living and missed names it during our conversation. She does report that her memory does not seem to be as good as it usually is. Vascular surgery indicated that her stenosis is well below 50% and there is no indication for surgical intervention at this time and they recommended adding aspirin 81 mg and increasing her simvastatin to 40 mg daily with a repeat carotid duplex in 2 years however it does not appear that she is on aspirin currently and statin dose still 20 mg however her med reconciliation has not yet been updated. I suspect her simvastatin dose has not been updated to a higher dose as she does have history with myalgias with mul tiple other statins. I will add aspirin at this time. Vital signs on presentation are overall unremarkable with the temperature 97.4, heart rate 87, blood pressure of 148/81, respiratory rate of 16 and oxygen saturations are 95% on room air. Her CBC is unremarkable. Her INR is therapeutic at 2.3. Her chemistry panel is unremarkable. Troponin was normal. EKG was unremarkable for any acute findings. CT of the brain shows atrophy but no acute findings. A CTA of the head and neck was unremarkable for any acute findings. Chest x-ray was unremarkable for any acute findings. Neurology evaluated the patient in the emergency department and was aware of her previous work-up. The only additional recommendations they had were to get an EEG and get an MRI with and without contrast. 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) Osteoarthritis Paroxysmal atrial fibrillation Persistent atrial fibrillation Pleural effusion on right (09/2019) Spinal stenosis Type 2 diabetes mellitus Home Medications simvastatin 20 mg tablet 20 mg PO DAILY 10/11/19 [History Last Taken Unknown] multivitamin 1 cap PO DAILY 12/10/19 [History Last Taken Unknown] ascorbate calcium (vitamin C) 500 mg tablet 500 mg PO DAILY 01/31/21 [History Last Taken Unknown] metoprolol succinate 25 mg tablet,extended release 24 hr 25 mg PO BID #90 tabs 05/16/22 [Rx Last Taken Unknown] donepezil 10 mg tablet 10 mg PO QHS #30 tabs 09/18/22 [Rx Last Taken Unknown] warfarin 2.5 mg tablet 2.5 mg PO DAILY 10/15/22 [History Last Taken Unknown] diphenhydramine HCl 25 mg tablet (Allergy) 25 mg PO QHS PRN allergy symptoms 11/14/22 [History Last Taken Unknown] omeprazole 20 mg capsule,delayed release 20 mg PO DAILY reflux 11/14/22 [History Last Taken Unknown] Allergy/AdvReac Type Severity Reaction Status Date / Time latex Allergy rash Verified 12/27/22 15:40 amiodarone AdvReac Severe Hair Verified 12/27/22 15:40 falling out in gobs atorvastatin [From Lipitor] AdvReac myalgia Verified 12/27/22 15:40 codeine AdvReac Nausea Verified 12/27/22 15:40 meperidine [From Demerol] AdvReac Nausea/Vom/ Verified 12/27/22 15:40 Diarrhea rosuvastatin [From Crestor] AdvReac myalgia Verified 12/27/22 15:40 Family History Father CAD (coronary artery disease) Brother CAD (coronary artery disease) Surgical History History of coronary artery stent placement (02/14/07) History of knee replacement History of kyphoplasty (~05/2020) History of left heart catheterization (12/27/19) History of left hip replacement History of radiofrequency ablation procedure for cardiac arrhythmia (2011) History of repair of rotator cuff Social History housing: assisted living facility Smoking Status: Former smoker how long ago did patient quit smokin years ago alcohol intake: former substance use type: does not use caffeine: No Vital Signs Vital Signs Vital Signs: 12/27/22 15:36 12/27/22 15:42 12/27/22 15:27 Temperature 97.9 F 97.9 F Temperature Source Temporal Temporal Pulse Rate Respiratory Rate 18 18 Blood Pressure 153/96 H 153/98 H Blood Pressure Mean 115 116 Pulse Ox 96 96 Oxygen Delivery Method Room Air Room Air Room Air 12/27/22 15:27 12/27/22 15:27 12/27/22 15:54 Temperature Temperature Source Pulse Rate 79 80 84 Respiratory Rate 14 16 16 Blood Pressure 182/100 H 182/100 H 182/100 H Blood Pressure Mean 127 127 127 Pulse Ox 96 96 96 Oxygen Delivery Method Room Air Room Air Room Air 12/27/22 15:57 Temperature Temperature Source Pulse Rate 78 Respiratory Rate 16 Blood Pressure 109/73 Blood Pressure Mean 85 Pulse Ox 96 Oxygen Delivery Method Room Air Weight Weight: 86.3 kg Body Mass Index (BMI) 33.7 Physical Exam Const alert, oriented x3, no apparent distress, healthy appearing and well nourished Constitutional Narrative: Very pleasant, obese, elderly white female, lying in bed, appears comfortable and nontoxic, at bedside, minimal word finding difficulties but speech is fluid and completely intelligible, patient appears younger than stated age HEENT normocephalic, head/scalp atraumatic and moist oral mucous membranes HEENT Narrative: Mild hearing loss, dentition is poor, Mallampati is 3, no thrush Eyes PERRL, EOMs intact bilaterally and conjunctivae normal Eyes Narrative: No scleral icterus Neck no lymphadenopathy, supple, no JVD and no carotid bruits Neck Narrative: Acute midline, no thyroid enlargement Resp normal respiratory effort, no retractions, no use of accessory muscles and clear to auscultation bilaterally Auscultation: Negative for rales, rhonchi or wheezes Cardio regular rate, regular rhythm, S1 normal heart sound, S2 normal heart sound, no murmurs, no rub, no gallops and no clicks GI normal to inspection, nondistended, normoactive bowel sounds, soft to palpation and non-tender Extremity no clubbing, cyanosis or edema Extremity Narrative: Pedal pulses are 2+ Neuro oriented x3, CN's II-XII intact bilaterally, moves all extremities and no focal motor deficits Neuro Narrative: Minimal generalized weakness noted on exam Sensorium / Orientation: oriented to person, oriented to place and oriented to time Speech: speech normal Psych affect normal Psych Narrative: Very pleasant, interacts appropriately Results Lab / Micro Data Attestation: I reviewed the patient's lab results. 12/27/22 15:45 12/27/22 15:45 Labs: Laboratory Results - last 24 hr 12/27/22 15:45: WBC 7.5, RBC 4.12 L, Hgb 12.1, Hct 38.5, MCV 93.4, MCH 29.4, MCHC 31.4 L, RDW Std Deviation 44.5 H, RDW Coeff of Sumeet 13.2, Plt Count 274, MPV 10.1, Immature Gran % (Auto) 0.400, Neut % (Auto) 57.4, Lymph % (Auto) 27.9, [place] % (Auto) 10.8 H, Eos % (Auto) 2.8, Baso % (Auto) 0.7, Absolute Neuts (auto) 4.3, Absolute Lymphs (auto) 2.10, Nucleated RBC % 0, PT 25.7 H, INR 2.3, APTT 48.2 H, Sodium 138, Potassium 4.1, Chloride 106, Carbon Dioxide 28.0, Anion Gap 4 L, BUN 19 H, Creatinine 1.01, Estim Creat Clear Calc 32.46, Est GFR (MDRD) Af Amer 67, Est GFR (MDRD) Non-Af 55 L, BUN/Creatinine Ratio 18.8, Glucose 119 H, Calcium 8.1 L, Troponin I High Sens [address] 12/27/22 15:25 IMPRESSION: No acute intracranial process identified. Moderate chronic involutional and white matter changes. Electronically Signed: Ban Avila MD at 15:37 EDT , ADDENDUM: 12/27/22 1548 IMPRESSION: No acute intracranial process identified. Moderate chronic involutional and white matter changes. N.B. : The above Results were Read Back by Ban Avila MD to Lali Pimentel MD, and understanding confirmed on 12/27/2022 15:42:32 (ET). Electronically Signed: Ban Avila MD at 15:37 EDT , Head/Neck CTA 12/27/22 15:28 IMPRESSION: Stable CTA Carotid, and CTA Brain with the previous study with no acute changes. Electronically Signed: Chuy Kruger DO at 16:21 EDT , ADDENDUM: 12/27/22 1630 IMPRESSION: Stable CTA Carotid, and CTA Brain with the previous study with no acute changes. N.B. : The above Results were Read Back by Chuy Kruger DO to Lali Pimentel MD, and understanding confirmed on 12/27/2022 16:23:14 (ET). Electronically Signed: Chuy Kruger DO at 16:21 EDT , Chest X-Ray 12/27/22 16:24 IMPRESSION: Mild interstitial prominence. Electronically Signed: Chuy Kruger DO at 16:33 EDT Reading Location ID and State: [facility] / [place] Tel [phone], Service support , Assessment & Plan Assessment/Plan (1) Difficulty with speech: (2) Dysarthria: PLAN: Plan Dysarthria/word finding difficulties -Extensive stroke work-up multiple times recently -She reports this is the seventh time this is happened in the last month or 2 -Check contrasted MRI -Check EEG -Consider reconsultation of neurology after imaging is performed -We will add aspirin 81 mg as its not on her current med reconciliation and it was to be added per vascular surgery's recommendations -Continue home statin -Speech, PT, OT consultation Hyperlipidemia -Continue home statin GERD -Continue home PPI Hypertension -Continue home metoprolol -Goal blood pressure should be less than 130/80 -Pressure on presentation was slightly elevated however will monitor given the acute setting -May need additional antihypertensives depending on blood pressure control during her hospital course Carotid artery disease -Minimal -No surgical plans -Restart aspirin Persistent atrial fibrillation -Patient is currently rate controlled -Continue metoprolol -Continue Coumadin -Patient is therapeutic at 2.3 -Repeat a.m. INR -This is managed by her primary care physician DVT prophylaxis -Fully anticoagulated CODE STATUS -Full code as per discussion with patient on admission Charges/Coding Visit Charges Inpatient E&M: 38015 Init Hosp L2
[2022-12-27] MEDS: Donepezil HCl 10 MG Tablet PO (21:02)
[2022-12-28 06:16] LABS: Absolute Lymphocyte Count 1.57 X10^3/uL (0.83-4.51); Absolute Neutrophil Count 5.3 X10^3/uL (2.0-7.7); Basophil# 0.05 X10^3/uL; Basophil% 0.6 % (0-1); Eosinophil# 0.24 X10^3/uL; Hematocrit 39.3 % (37-47); Hemoglobin 12.8 g/dL (12.0-15.0); Lymphocyte # 1.57 X10^3/ul (0.83-4.51); Lymphocyte % 19.8 % (19-41); Mean Corp Hgb Conc 32.6 g/dL (32-36); Mean Corpuscular Hgb 29.6 pg (27.0-32.0); Mean Platelet Vol. 10.6 fl (6.2-12.0); Monocyte# 0.75 X10^3/uL; Monocyte% 9.5 % (0-10); NRBC Flagged by Analyzer 0 % (0-5); Neutrophil # 5.28 X10^3/uL (2.7-7.7); Neutrophil % 66.8 % (47-70); Platelet Count 272 K/mm3 (150-450); RBC Distribution Width CV 12.9 % (11.6-14.6); Red Blood Count 4.32 M/mm3 (4.2-5.4); White Blood Count 7.9 K/mm3 (4.4-11.0)
[2022-12-28 06:33] LABS: International Normalized Ratio 2.1; Prothrombin Time (Protime)PT. 23.8 SECONDS (11.7-14.9)
[2022-12-28 06:51] LABS: Anion Gap 3 (5-15); BUN 14 mg/dL (7-18); BUN/Creat Ratio 15.7 RATIO (10-20); Calcium,Total 8.3 mg/dL (8.5-10.1); Chloride 108 mmol/L (98-107); Creatinine, Serum 0.89 mg/dL (0.55-1.02); EST Glomerular Filtration Rate 64 mL/min (>60); Est Glom Filt Rate - Afr Amer 77 mL/min (>60); Estimated Creatinine Clearance 36.84 ml/min; Glucose 117 mg/dL (74-106); Potassium 3.9 mmol/L (3.5-5.1); Sodium Level 138 mmol/L (136-145)
[2022-12-28 08:26] VITALS: BP 141/82; PULSE 88; RESP 14; TEMP 36.6; O2SAT 95
[2022-12-28] MEDS: Ascorbic Acid 500 MG Tablet PO (08:33)
[2022-12-28] MEDS: Aspirin 81 MG TAB.CHEW PO (08:33)
[2022-12-28 08:34] VITALS: PULSE 88
[2022-12-28] MEDS: Metoprolol(XL)Succ 25 MG Tablet PO (08:34)
[2022-12-28] MEDS: Pantoprazole Sodium 20 MG Tablet PO (08:34)
[2022-12-28] MEDS: 0.9% Saline Lock 10 ML Syringe IV (08:42)
--- NOTE | 2022-12-28 11:07 | DCINST_ITS ---
Discharge Instructions Diet Discharge Diet: Low fat / Low cholesterol Activity Discharge Activity: Return to Normal Activity Dressing / Incision Call your doctor if you observe: Fever of 101 or Higher, Shortness of breath, Dizziness, Fainting spells, Swelling in the ankles, Chest pain and Increased palpitations (irregular heartbeat) Follow Up Care Test Results: Test results from this visit will be discussed in further detail at your follow- up appointment, if applicable. Discharge Plan Admission Admit Date/Time: 12/27/22 17:04 Attending Provider: Sae Carballo Primary Care Provider: Rosemary Doran Consulting Providers: Lynn Horn Discharge Orders/Prescriptions Prescriptions: New aspirin 81 mg Tablet,Chewable 81 mg PO BREAKFAST 30 Days Qty: 30 0RF Continued multivitamin capsule 1 cap PO DAILY ascorbate calcium (vitamin C) 500 mg tablet 500 mg PO DAILY Hold Instructions: Order Completed warfarin 2.5 mg tablet 2.5 mg PO DAILY Patient Comments: TAKE 1 TABLET BY MOUTH ONCE DAILY Rx Instructions: Managed by PCP donepezil 10 mg tablet 10 mg PO QHS Qty: 30 5RF Rx Instructions: Begin after completing one month of treatment of donepezil 5mg nightly simvastatin 20 MG tablet 20 mg PO DAILY diphenhydramine HCl [Allergy] 25 mg tablet 25 mg PO QHS PRN (Reason: allergy symptoms) omeprazole 20 mg capsule,delayed release(DR/EC) 20 mg PO DAILY metoprolol succinate 25 mg tablet extended release 24 hr 25 mg PO BID Qty: 90 3RF Referrals / Follow Up: Rosemary Doran MD [Primary Care Provider] - Within 1 Week Disposition Disposition (needs filled in before D/C Order can be placed): Home, Self Care
[2022-12-28 11:09] VITALS: BP 169/79; PULSE 84; RESP 16; TEMP 36.6; O2SAT 96
--- NOTE | 2022-12-28 12:06 | CASEMGMT ---
Social Work It is this SW's understanding from PCU staff pt is ready to return to [facility],her boyfriend is coming to pick her up. As per crew chief, pt is up in the room independent. SW called [facility], spoke w/Darcy. MEGA let Darcy know pt is returning today, faxed clinical information. No further needs, pt returning to [facility] today. JESUS Bobo
--- NOTE | 2022-12-28 13:41 | DS.PCM_ITS ---
Providers Date of Admission: 12/27/22 Primary Care Physician: Dr. Rosemary Doran MD Reason For Visit: DYARTHRIA Diagnosis Discharge Diagnosis (1) Difficulty with speech: Status: Acute Code(s): R47.9 - Unspecified speech disturbances (2) Dysarthria: Status: Acute Code(s): R47.1 - Dysarthria and anarthria Medications at Discharge Home Medications simvastatin 20 mg tablet 20 mg PO DAILY 10/11/19 multivitamin 1 cap PO DAILY 12/10/19 ascorbate calcium (vitamin C) 500 mg tablet 500 mg PO DAILY 01/31/21 metoprolol succinate 25 mg tablet,extended release 24 hr 25 mg PO BID #90 tabs 05/16/22 donepezil 10 mg tablet 10 mg PO QHS #30 tabs 09/18/22 warfarin 2.5 mg tablet 2.5 mg PO DAILY 10/15/22 diphenhydramine HCl 25 mg tablet (Allergy) 25 mg PO QHS PRN allergy symptoms 11/14/22 omeprazole 20 mg capsule,delayed release 20 mg PO DAILY reflux 11/14/22 aspirin 81 mg chewable tablet 81 mg PO BREAKFAST 30 days #30 tabs 12/28/22 Hospital Course Operations None Procedures None and Electroencephalogram Summary of Care Provided Minutes Spent on Discharge: 38 Hospital Course: Per HPI: EZRA GONZALEZ, is a 87 F who presented to the emergency department at [facility] on 12/27/2022 with speech abnormalities that started after 1 PM this afternoon. She resides at [facility]. She was last known well at 1 PM in the afternoon and when the staff went to take her a snack they noted that her speech was garbled. She had no other complaints. She reported that this is the seventh time this is happened and she has not had any answers as to why it continues to happen. Imaging has been unremarkable for str okes. She is fully baseline on Coumadin and her INR is therapeutic at this time. He does have carotid artery stenosis for which she is following with vascular surgery and she also follows with neurology. Each episode of dysarthria/aphasia is brief and last less than 30 minutes. The patient states that she feels this episode is lasting a bit longer and she is complaining of having some word finding difficulties however during my exam her speech is quite fluid and she only forgets the name of where she is living and missed names it during our conversation. She does report that her memory does not seem to be as good as it usually is. Vascular surgery indicated that her stenosis is well be low 50% and there is no indication for surgical intervention at this time and they recommended adding aspirin 81 mg and increasing her simvastatin to 40 mg daily with a repeat carotid duplex in 2 years however it does not appear that she is on aspirin currently and statin dose still 20 mg however her med reconciliation has not yet been updated. I suspect her simvastatin dose has not been updated to a higher dose as she does have history with myalgias with multiple other statins. I will add aspirin at this time. Vital signs on presentation are overall unremarkable with the temperature 97.4, heart rate 87, blood pressure of 148/81, respiratory rate of 16 and oxygen saturations are 95% on room air. Her CBC is unremarkable. Her INR is therapeutic at 2.3. Her chemistry panel is unremarkable. Troponin was normal. EKG was unremarkable for any acute findings. CT of the brain shows atrophy but no acute findings. A CTA of the head and neck was unremarkable for any acute findings. Chest x-ray was unremarkable for any acute findings. Neurology evaluated the patient in the emergency department and was aware of her previous work-up. The only additional recommendations they had were to get an EEG and get an MRI with and without contrast. Again, I will add aspirin 81 mg as well Hospital Course: 1. TIA?87-year-old female presented to the hospital with aphasia and dysarthria consistent with a TIA. This is the second time this is happened that she is pr esented to the hospital within the last 2 months this time CTA of the head and neck is unremarkable and MRI of the brain once again is negative. She did have aspirin added to her medication regimen. She did have an EEG done today which demonstrated frontal intermittent rhythmic delta activity which is of unknown significance. I do recommend that she follow-up with neurology as an outpatient. She is tolerating simvastatin despite having a history of myalgias with Crestor and Lipitor. She does likely have a little bit of dementia which will complicate her care in the situation unfortunately. But I also discussed this with her partner who was in the room on the day of discharge. I discussed with both of them the plan for discharge today and he expressed understanding of the risk benefits of going home and would like to go home today. Of note, on the day of discharge today she tried to sit in the chair but it rolled out from under her and she fell to the ground. She does not have any evident injuries and it was witnessed by her significant other who states that she did not hit h er head she denies any pain. I discussed with her what to look out for at home since she is on Coumadin and to have a low threshold to present back to the ER. 2. Hypertension, hyperlipidemia, A-fib are chronic medical conditions which complicate her care. Her home medications were continued where appropriate Physical Exam Narrative General: Alert, Oriented x3, Cooperative, No apparent distress HEENT: Atraumatic, PERRLA, EOMI, Normocephalic Oral: Moist Mucosa Neck: Supple, No JVD Lungs: Clear to auscultation, Normal air movement, No rhonchi, No wheeze, No rales Cardiovascular: Regular rate, Regular Rhythm, Normal S1, Normal S2, No murmurs Abdomen: Soft, Non Tender, Non-Distended, No Hepato-splenomegaly Extremities: No edema, Capillary Refill Less than 3 Seconds Skin: No rashes, No breakdown Musculoskeletal: No Tenderness to Palpation of Joints or Extremities Neurological: Cranial nerves II-XII grossly intact, Motor Exam 5/5 strength throughout, Sensory exam intact to light touch and pain Psych/Mental Status: Normal Affect, Appropriate Weight / BMI Weight Weight: 181 lb 3.52 oz Body Mass Index (BMI) 32.1 ABG / Lab / Microbiology Data 12/28/22 05:51 12/28/22 05:51 Laboratory: Laboratory Results - last 24 hr 12/27/22 15:45: WBC 7.5, RBC 4.12 L, Hgb 12.1, Hct 38.5, MCV 93.4, MCH 29.4, MCHC 31.4 L, RDW Std Deviation 44.5 H, RDW Coeff of Sumeet 13.2, Plt Count 274, MPV 10.1, Immature Gran % (Auto) 0.400, Neut % (Auto) 57.4, Lymph % (Auto) 27.9, [place] % (Auto) 10.8 H, Eos % (Auto) 2.8, Baso % (Auto) 0.7, Absolute Neuts (auto) 4.3, Absolute Lymphs (auto) 2.10, Nucleated RBC % 0, PT 25.7 H, INR 2.3, APTT 48.2 H, Sodium 138, Potassium 4.1, Chloride 106, Carbon Dioxide 28.0, Anion Gap 4 L, BUN 19 H, Creatinine 1.01, Estim Creat Clear Calc 32.46, Est GFR (MDRD) Af Amer 67, Est GFR (MDRD) Non-Af 55 L, BUN/Creatinine Ratio 18.8, Glucose 119 H, Calcium 8.1 L, Troponin I High Sens 10 12/28/22 05:51: WBC 7.9, RBC 4.32, Hgb 12.8, Hct 39.3, MCV 91.0, MCH 29.6, MCHC 32.6, RDW Std Deviation 43.0, RDW Coeff of Sumeet 12.9, Plt Count 272, MPV 10.6, Immature Gran % (Auto) 0.300, Neut % (Auto) 66.8, Lymph % (Auto) 19.8, [place] % (Auto) 9.5, Eos % (Auto) 3.0, Baso % (Auto) 0.6, Absolute Neuts (auto) 5.3, Absolute Lymphs (auto) 1.57, Nucleated RBC % 0, PT 23.8 H, INR 2.1, Sodium 138, Potassium 3.9, Chloride 108 H, Carbon Dioxide 27.0, Anion Gap 3 L, BUN 14, Creatinine 0.89, Estim Creat Clear Calc 36.84, Est GFR (MDRD) Af Amer 77, Est GFR (MDRD) Non-Af 64, BUN/Creatinine Ratio 15.7, Glucose 117 H, Calcium 8.3 L Radiography Diagnostic Testing: Radiology Impression Brain CT 12/27/22 15:25 IMPRESSION: No acute intracranial process identified. Moderate chronic involutional and white matter changes. Electronically Signed: Ban Avila MD at 15:37 EDT , ADDENDUM: 12/27/22 1548 IMPRESSION: No acute intracranial process identified. Moderate chronic involutional and white matter changes. N.B. : The above Results were Read Back by Ban Avila MD to Lali Pimentel MD, and understanding confirmed on 12/27/2022 15:42:32 (ET). Electronically Signed: Ban Avila MD at 15:37 EDT , Head/Neck CTA 12/27/22 15:28 IMPRESSION: Stable CTA Carotid, and CTA Brain with the previous study with no acute changes. Electronically Signed: Chuy Kruger DO at 16:21 EDT , ADDENDUM: 12/27/22 1630 IMPRESSION: Stable CTA Carotid, and CTA Brain with the previous study with no acute changes. N.B. : The above Results were Read Back by Chuy Kruger DO to Lali Pimentel MD, and understanding confirmed on 12/27/2022 16:23:14 (ET). Electronically Signed: Chuy Kruger DO at 16:21 EDT , Chest X-Ray 12/27/22 16:24 IMPRESSION: Mild interstitial prominence. Electronically Signed: Chuy Kruger DO at 16:33 EDT , Brain MRI 12/27/22 17:08 IMPRESSION: Mild atrophy and periventricular white matter ischemic change without evidence for acute infarct. No enhancing lesions following contrast administration Electronically Signed: Sy Auguste MD at 19:02 EDT , D/C Instructions Discharge Diet: Low fat / Low cholesterol Call your doctor if you observe: Fever of 101 or Higher, Shortness of breath, Dizziness, Fainting spells, Swelling in the ankles, Chest pain and Increased palpitations (irregular heartbeat) Meaningful Use Info Meaningful Use Diagnoses (Choose all that apply): None applicable Discharge Plan Admission Admit Date/Time: 12/27/22 17:04 Attending Provider: Sae Carballo Primary Care Provider: Rosemary Doran Consulting Providers: Lynn Horn Discharge Orders/Prescriptions Prescriptions: New aspirin 81 mg Tablet,Chewable 81 mg PO BREAKFAST 30 Days Qty: 30 0RF Continued multivitamin capsule 1 cap PO DAILY ascorbate calcium (vitamin C) 500 mg tablet 500 mg PO DAILY Hold Instructions: Order Completed warfarin 2.5 mg tablet 2.5 mg PO DAILY Patient Comments: TAKE 1 TABLET BY MOUTH ONCE DAILY Rx Instructions: Managed by PCP donepezil 10 mg tablet 10 mg PO QHS Qty: 30 5RF Rx Instructions: Begin after completing one month of treatment of donepezil 5mg nightly simvastatin 20 MG tablet 20 mg PO DAILY diphenhydramine HCl [Allergy] 25 mg tablet 25 mg PO QHS PRN (Reason: allergy symptoms) omeprazole 20 mg capsule,delayed release(DR/EC) 20 mg PO DAILY metoprolol succinate 25 mg tablet extended release 24 hr 25 mg PO BID Qty: 90 3RF Referrals / Follow Up: Rosemary Doran MD [Primary Care Provider] - Within 1 Week Disposition Disposition (needs filled in before D/C Order can be placed): Home, Self Care Charges/Coding Visit Charges Inpatient E&M: 21088 Disch Hosp >30min
== END 2022-12-28 11:09 | disposition home or self-care (01) ==
LOC: ED 17:08 → PCU 17:14
PROVIDERS: Admitting Provider Internal Medicine; Emergency Provider Emergency Medicine; PCP Family Medicine; Visit Provider Family Medicine
DX: G45.9 Transient cerebral ischemic attack, unspecified (principal); I13.0 Hypertensive heart and chronic kidney disease with heart failure and stage 1 through stage 4 chronic kidney disease, or unspecified chronic kidney disease; I50.32 Chronic diastolic (congestive) heart failure; E11.22 Type 2 diabetes mellitus with diabetic chronic kidney disease; I48.19 Other persistent atrial fibrillation; R47.1 Dysarthria and anarthria; I25.10 Atherosclerotic heart disease of native coronary artery without angina pectoris; N18.9 Chronic kidney disease, unspecified; Z86.16 Personal history of COVID-19; E78.5 Hyperlipidemia, unspecified; R47.01 Aphasia; Z87.891 Personal history of nicotine dependence; I25.2 Old myocardial infarction; Z79.899 Other long term (current) drug therapy; Z79.01 Long term (current) use 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; R29.702 NIHSS score 2; K21.9 Gastro-esophageal reflux disease without esophagitis; R94.01 Abnormal electroencephalogram [EEG]
CPT/HCPCS: 36415; 70450; 70496; 70498; 70553; 71045; 80048; 84484; 85025; 85610; 85730; 93005; 94668; 95819; 99221; 99285; A9575; Q9967; A4216; G0378

== ENCOUNTER → 2023-01-16 | Outpatient (REF) | payer MEDICARE, SELFPAY ==
[2023-01-16 09:12] LABS: INR Fingerstick 2.2; Prothrombin Time Fingerstick 24.2 SEC (11.7-14.9)
== END ==
PROVIDERS: PCP Family Medicine; Visit Provider Family Medicine
DX: Z79.01 Long term (current) use 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 (principal)
CPT/HCPCS: 36416; 85610

== ENCOUNTER → 2023-01-20 | Outpatient (CLI) | payer MEDICARE, SELFPAY ==
[2023-01-22 10:09] LABS: Albumin 3.4 g/dL (2.9-4.4); Alpha-1-Globulins 0.3 g/dL (0.0-0.4); Alpha-2-Globulins 0.9 g/dL (0.4-1.0); Gamma Globulin 0.7 g/dL (0.4-1.8); Immunoglobulin A 158 mg/dL (64-422); Immunoglobulin G 847 mg/dL (586-1602); Immunoglobulin M 48 mg/dL (26-217); PROEL- TOTAL PROTEIN 6.4 g/dL (6.0-8.5)
== END | disposition home or self-care (01) ==
LOC: MTLAB 09:07
PROVIDERS: PCP Family Medicine; Referring Provider Psychiatry & Neurology Neurology; Visit Provider Psychiatry & Neurology Neurology
DX: G62.9 Polyneuropathy, unspecified (principal)
CPT/HCPCS: 36415; 82784; 84165; 86334; 86335

== ENCOUNTER → 2023-02-21 | Outpatient (REF) | payer MEDICARE, SELFPAY ==
[2023-02-21 08:42] LABS: Hematocrit 38.2 % (37-47); Hemoglobin 12.5 g/dL (12.0-15.0); Mean Corp Hgb Conc 32.7 g/dL (32-36); Mean Corpuscular Hgb 29.8 pg (27.0-32.0); Mean Corpuscular Volume 91.2 fL (81-99); Mean Platelet Vol. 10.8 fl (6.2-12.0); Platelet Count 297 K/mm3 (150-450); RBC Distribution Width CV 13.4 % (11.6-14.6); RBC Distribution Width SD 44.8 fl (35.1-43.9); Red Blood Count 4.19 M/mm3 (4.2-5.4); White Blood Count 7.7 K/mm3 (4.4-11.0)
[2023-02-21 08:55] LABS: ALB/GLOB Ratio 0.9 RATIO (0.9-2.4); AST(SGOT) 16 U/L (15-37); Alanine Aminotransfer ALT/SGPT 11 U/L (13-56); Albumin, Serum 2.9 g/dL (3.2-5.0); Alkaline Phosphatase 84 U/L (45-117); Anion Gap 4 (5-15); BUN 14 mg/dL (7-18); Calcium,Total 8.4 mg/dL (8.5-10.1); Chloride 107 mmol/L (98-107); Cholesterol 127 mg/dL (200); EST Glomerular Filtration Rate 56 mL/min (>60); Est Glom Filt Rate - Afr Amer 68 mL/min (>60); Globulin 3.3 g/dL (2.2-4.2); Glucose 134 mg/dL (74-106); High Density Lipoprotein 50 mg/dL; Potassium 4.2 mmol/L (3.5-5.1); Protein, Total 6.2 g/dL (6.4-8.2); Sodium Level 138 mmol/L (136-145); Triglycerides 102 mg/dL; Very Low Density Lipoprotein 20 mg/dL (5-40)
[2023-02-21 10:05] LABS: International Normalized Ratio 2.3; Prothrombin Time (Protime)PT. 25.3 SECONDS (11.7-14.9)
== END ==
PROVIDERS: PCP Family Medicine; Visit Provider Family Medicine
DX: I48.20 Chronic atrial fibrillation, unspecified (principal); E78.5 Hyperlipidemia, unspecified
CPT/HCPCS: 36415; 80053; 80061; 85027; 85610

== ENCOUNTER → 2023-03-20 | Outpatient (REF) | payer MEDICARE, SELFPAY ==
--- OUTSIDE RECORDS SUMMARY | 2023-03-20 04:09 | XMS RPT_ITS | CCD ---
Author Name Unknown Address [address] [place] [address] Organization [facility] Care Team Providers Care Stock Preparer Name Role Phone LISHNEVSKI, ALEXIA Unavailable Unavailable LISHNEVSKI, ALEXIA Unavailable Unavailable LISHNEVSKI, ALEXIA Unavailable Unavailable LISHNEVSKI, ALEXIA Unavailable Unavailable LISHNEVSKI, ALEXIA Unavailable Unavailable LISHNEVSKI, ALEXIA Unavailable Unavailable LISHNEVSKI, ALEXIA Unavailable Unavailable LISHNEVSKI, ALEXIA Unavailable Unavailable LISHNEVSKI, ALEXIA Unavailable Unavailable LISHNEVSKI, ALEXIA Unavailable Unavailable LISHNEVSKI, ALEXIA Unavailable Unavailable LISHNEVSKI, ALEXIA Unavailable Unavailable LISHNEVSKI, ALEXIA Unavailable Unavailable ALAS, RICKEY X Unavailable Unavailable LISHNEVSKI, ALEXIA Unavailable Unavailable LISHNEVSKI, ALEXIA Unavailable Unavailable COLPO, ROSA ELENA Unavailable Unavailable LISHNEVSKI, ALEXIA Unavailable Unavailable LISHNEVSKI, ALEXIA Unavailable Unavailable [facility] Unavailable Frank Gonzalez Unavailable Nirmal Kemp Unavailable Mohan Álvarez Unavailable Chacho Alaso Clive Unavailable Rosemary Doran Primary Care Provider [phone] Lishnlizeth Alexia Primary Care Provider [phone] Zenaida Henderson Unavailable Allergies Allergy Classification Reported Allergen(s) Allergy Type Date of Onset Reaction(s) Facility (6 sources) atorvastatin; 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: [ATORVASTATIN] Drug Allergy 5 Other: See Comments [facility] Repository (6 sources) codeine; 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: [CODEINE] Drug Allergy 5 Unknown [facility] Repository (6 sources) Latex; 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: [LATEX] Propensity to adverse reactions (disorder) 5 Rash [facility] Repository (6 sources) meperidine; 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: [MEPERIDINE] Drug Allergy 5 GI Upset [facility] Repository (6 sources) rosuvastatin; 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: [ROSUVASTATIN] Drug Allergy 5 Other: See Comments [facility] Repository Medications Completed/Discontinued Medications Medication Drug Class(es) Dates Sig (Normalized) Sig (Original) betamethasone 3 mg/ml / betamethasone acetate 3 mg/ml injectable suspension (1 source) Corticosteroid Start: 05-13-2019 betamethasone acetate-betamethason e sodium phosphate 12 mg injection (CELESTONE) cholecalciferol 1000 unt oral tablet (1 source) Vitamin D take 1 tablet by mouth once daily cholecalciferol (VITAMIN D3) 1,000 unit tab Take 1,000 Units by mouth once daily. 0 Active Problems Active Problems Problem Classification Problem Date Documented Da te Episodic/Chronic Adjustment disorders (5 sources) Adjustment disorder with depressed mood; 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: [Adjustment disorder with depressed mood] Onset: 07-07-2017 07-07-2017 Chronic Asthma (5 sources) Reactive airway disease; 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: [Reactive airway disease] Onset: 11-14-2015 11-14-2015 Chronic Cardiac dysrhythmias (5 sources) Atrial fibrillation; 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: [Atrial fibrillation] 05-19-2015 Chronic Chronic kidney disease (5 sources) Chronic kidney disease stage 2; 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: [Chronic kidney disease, stage 2, mildly decreased GFR] 12-11-2016 Chronic Coronary atherosclerosis and other heart disease (10 sources) Coronary atherosclerosis; 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: [Coronary arteriosclerosis] Onset: 11-14-2015 11-14-2015 Chronic Coronary atherosclerosis and other heart disease (5 sources) Stented coronary artery; 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: [Presence of stent in coronary artery] Onset: 03-02-2016 03-02-2016 Diabetes mellitus with complications (5 sources) 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; 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] 05-19-2015 Chronic Diabetes mellitus without complication (5 sources) Type 2 diabetes mellitus; 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: [Type 2 diabetes mellitus] 05-13-2015 Chronic Disorders of lipid metabolism (5 sources) Mixed hyperlipidemia; 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: [Mixed hyperlipidemia] 11-27-2018 Chronic Essential hypertension (5 sources) Essential hypertension; 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: [Essential hypertension] 05-19-2015 Chronic Nutritional deficiencies (5 sources) Vitamin D deficiency; 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: [Vitamin D deficiency] 05-19-2015 Chronic Osteoarthritis (5 sources) Osteoarthritis; 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: [Osteoarthritis] 05-19-2015 Chronic Other and unspecified benign neoplasm (5 sources) Tubular adenoma of colon; 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: [Tubular adenoma of colon] 12-11-2016 Episodic Other connective tissue disease (5 sources) History of total knee arthroplasty; 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: [History of knee replacement, total] Onset: 02-09-2016 11-13-2016 Chronic Other connective tissue disease (5 sources) Tendinitis of right rotator cuff; 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: [Tendinitis of right rotator cuff] Onset: 02-04-2019 02-04-2019 Other diseases of bladder and urethra (5 sources) Overactive bladder; 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: [OAB (overactive bladder)] Onset: 12-11-2016 12-11-2016 Chronic Other diseases of veins and lymphatics (5 sources) Peripheral venous insufficiency; 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: [Peripheral venous insufficiency] 05-19-2015 Episodic Other non-traumatic joint disorders (5 sources) Rotator cuff arthropathy of right shoulder; 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: [Rotator cuff tear arthropathy, right] Onset: 02-04-2019 02-04-2019 Other nutritional; endocrine; and metabolic disorders (5 sources) Obese class I; 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: [Obesity, Class I, BMI 30-34.9] Onset: 07-21-2017 07-21-2017 Spondylosis; intervertebral disc disorders; other back problems (5 sources) Spinal stenosis; 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: [Spinal stenosis] 05-19-2015 Episodic Unclassified (1 source) Other specified postprocedural states Onset: 01-05-2018 Episodic Unclassified (1 source) Unknown / UNK(Unknown) Onset: 01-05-2018 Unclassified (5 sources) Drug therapy finding; 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: [On anticoagulant therapy] 05-19-2015 Unclassified (5 sources) History of repair of hip joint; 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: [Status post left hip replacement] Onset: 05-19-2015 05-19-2015 Past or Other Problems Problem Classification Problem Date Documented Da te Episodic/Chronic Biliary tract disease (5 sources) Biliary calculus; 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: [Asymptomatic cholelithiasis] Onset: 6 12-18-2015 Episodic Coronary atherosclerosis and other heart disease (5 sources) History of placement of stent for coronary artery disease; 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: [S/P coronary artery stent placement] Onset: 6 11-24-2015 Episodic Other aftercare (5 sources) Long-term current use of anticoagulant; 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: [Chronic anticoagulation] Onset: 9 11-27-2018 Episodic Other bone disease and musculoskeletal deformities (5 sources) Osteopenia; 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: [Osteopenia of multiple sites] Onset: 8 01-05-2018 Episodic Other circulatory disease (5 sources) H/O: atrial fibrillation; 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: [Status post ablation of atrial fibrillation] Onset: 8 01-05-2018 Episodic Other gastrointestinal disorders (5 sources) Fecal incontinence with fecal urgency; 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: [Incontinence of feces with fecal urgency] Onset: 7 12-11-2016 Episodic Residual codes; unclassified (5 sources) History of repair of musculotendinous cuff of shoulder; 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: [S/P rotator cuff repair] Onset: 9 02-04-2019 Episodic Results Test Name Value Interpretation Reference Range Facil ity Encounters Encounter Date Encounter Type Care Provider Facility Start: 10-12-2019 End: 10-12-2019 Refill Jo Field Work Phone: [facility] Procedures Date Procedure Procedure Detail Performing Clinician Start: 02-01-2015 CONVERTED SURGICAL PATHOLOGY Norm Meneses Work Phone: Start: 04-17-2010 CONVERTED SURGICAL PATHOLOGY Dylan Sanchez Work Phone: Start: 07-31-2009 CONVERTED SURGICAL PATHOLOGY Jin Crawley Work Phone: Start: 05-07-2001 CONVERTED SURGICAL PATHOLOGY Sae Resendiz Work Phone: Plan of Treatment Date Care Activity Detail Author Start: 01-06-2024 Urine microalbumin profile DTAP,TDAP ,TD (1 - Tdap) [facility] Immunizations Immunization Date Immunization Notes Care Provider Naomi chung 04-27-2019 influenza, high dose seasonal, preservative-free Alexia Federicoi [facility] 01-05-2018 influenza, high dose seasonal, preservative-free Alexia Lishnaidai [facility] 12-12-2014 influenza, seasonal, injectable Alexia Federicoi [facility] 06-15-2014 pneumococcal conjuga te vaccine, 13 valent Alexia Adamsladariusi [facility] 12-06-2013 influenza, seasonal, injectable Alexia Lishnnéstori [facility] 07-19-2013 tetanus and diphther ia toxoids, adsorbed, preservative free, for adult use (2 Lf of tetanus toxoid and 2 Lf of diphtheria toxoid) [facility]2013 influenza, seasonal, injectable Alexia Orinhnaidai [facility] 01-13-2012 influenza, seasonal, injectable Alexia Federicoi [facility] 02-11-2011 influenza, seasonal, injectable [facility]2010 zoster vaccine, live Allia Adamss [facility] 03-31-2006 pneumococcal polysaccharide vaccine, 23 valent [place] [facility] Payers Date Payer Category Payer Unknown [id number] 1935 Unknown [id number] [id number] [id number] 1935 Unknown [id number] 2.16.8 [id number] 1935 Unknown [id number] 2.16.8 [id number] 1935 Unknown [id number] 2.16.8 [id number] 1935 Unknown [id number] 2.16.8 [id number] 1935 Unknown [id number] 2.16.8 [id number] 1935 Unknown [id number] 2.16.8 [id number] Unknown [id number] Social History Date Type Detail Facility Start: 05-13-2019 Tobacco smoking stat us NHIS Former smoker [facility] End: 03-20-2008 History of tobacco use Current smoker [facility] End: 03-20-2008 History of tobacco use Cigarette Smoker [facility] Start: 05-13-2019 Cigarettes smoked cu rrent (pack per day) - Reported [facility] Start: 05-13-2019 Tobacco use and exposure Never used [facility] Start: 05-13-2019 Alcohol intake 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 non-dr yard associate of alcohol (finding) [facility] Sex Assigned At Not on file [facility] Exposure to SARS-CoV -2 (event) Not sure [facility] Medical Equipment Procedure Code Equipment Code Equipment Origin al Text Equipment Identifier Dates Start: 04-06-2018 Summary Purpose Family History No Family History Records FoundNo Family History Records Found Advance Directives No Advanced Directives Records FoundNo Advanced Directives Records Found History of Past Illness Problem Noted Date Resolved Date Hemarthrosis involving knee joint 02/09/2016 11/13/2016 Problem Noted Date Resolved Date Hemarthrosis involving knee joint 02/09/2016 11/13/2016 Problem Noted Date Resolved Date Hemarthrosis Involving Knee Joint 02/09/2016 11/13/2016 Additional Source Comments INFORMATION SOURCE (unrecogn ized section and content) DATE CREATED AUTHOR AUTHOR'S ORGANIZ ATION 11/12/2019 [facility] Source Comments (unrecognize d section and content) In the event this informatio n is protected by the Federal Confidentiality of Alcohol and Drug Abuse Patient Records regulations: The Federal rules restrict any use of the information to criminally investigate or prosecute any alcohol or drug abuse patient.[facility] the event this information is protected by the Federal Confidentiality of Alcohol and Drug Abuse Patient Records regulations: The Federal rules restrict any use of the information to criminally investigate or prosecute any alcohol or drug abuse patient.[facility] the event this information is protected by the Federal Confidentiality of Alcohol and Drug Abuse Patient Records regulations: The Federal rules restrict any use of the information to criminally investigate or prosecute any alcohol or drug abuse patient.[facility] the event this information is protected by the Federal Confidentiality of Alcohol and Drug Abuse Patient Records regulations: The Federal rules restrict any use of the information to criminally investigate or prosecute any alcohol or drug abuse patient.[facility] the event this information is protected by the Federal Confidentiality of Alcohol and Drug Abuse Patient Records regulations: The Federal rules restrict any use of the information to criminally investigate or prosecute any alcohol or drug abuse patient.[facility] Reason for Visit (unrecogniz ed section and content) Telephone Encounter - Anne Marie Salas - 10/12/2019 7:49 AM EDT Miscellaneous Notes (unrecog nized section and content) Pharmacy faxed requesting the following refill. Pending Prescriptions Disp Refills FUROSEMIDE 20 MG TABLET 90 tablet 0 Sig: TAKE ONE TABLET BY MOUTH EVERY DAY SHAHEEN: Yes Last refill: 01/21/2019 Patient last appointment: 09/22/2019 Patient next appointment: Visit date not found Patient Phone numbers: [phone] (home) Request is for script(s) to be escript to pharmacy. Anne Marie Morrison documented in this encounter FOR RECORDS PERTAINING TO PATIENTS WHO ARE OR HAVE BEEN ENROLLED IN A CHEMICAL DEPENDENCY/SUBSTANCEABUSE PROGRAM, SOME INFORMATION MAY BE OMITTED. This clinical summary was aggregated from multiple sources. Caution should be exercised in using it in the provision of clinical care. This summary normalizes information from multiple sources, and as a consequence, information in this document may materially change the coding, format and clinical context of patient data. In addition, data may be omitted in some cases. CLINICAL DECISIONS SHOULD BE BASED ON THE PRIMARY CLINICAL RECORDS. [employer] provides no warranty or guarantee of the accuracy or completeness of information in this document.
[2023-03-20 07:16] LABS: INR Fingerstick 2.4; Prothrombin Time Fingerstick 25.7 SEC (11.7-14.9)
== END ==
PROVIDERS: PCP Family Medicine; Visit Provider Family Medicine
DX: Z79.01 Long term (current) use 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 (principal)
CPT/HCPCS: 36416; 85610

== ENCOUNTER → 2023-04-17 | Outpatient (REF) | payer MEDICARE, SELFPAY ==
--- OUTSIDE RECORDS SUMMARY | 2023-04-17 05:41 | XMS RPT_ITS | CCD ---
Author Name Unknown Address [address] [place] [address] Organization [facility] Care Team Providers Care Senior Interaction Designer Name Role Phone LISHNEVSKI, ALEXIA Unavailable Unavailable [...] LISHNEVSKI, ALEXIA Unavailable Unavailable [facility] Unavailable [phone] Frank Gonzalez Unavailable Nirmal Kemp Unavailable Mohan Álvarez Unavailable Chacho Alaso Clive Unavailable Rosemary Doran Primary Care Provider Lishnlizeth Alexia Primary Care Provider [phone] Zenaida Henderson Unavailable Allergies Allergy Classification Reported Allergen(s) Allergy Type Date of Onset Reaction(s) Facility (6 sources) atorvastatin; 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: [ATORVASTATIN] Drug Allergy 5 Other: See Comments [facility] Repository (6 sources) codeine; 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: [CODEINE] Drug Allergy 5 Unknown [facility] Repository (6 sources) Latex; 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: [LATEX] Propensity to adverse reactions (disorder) 5 Rash [facility] Repository (6 sources) meperidine; 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: [MEPERIDINE] Drug Allergy 5 GI Upset [facility] Repository (6 sources) rosuvastatin; 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: [ROSUVASTATIN] Drug Allergy 5 Other: See Comments [facility] Repository Medications Completed/Discontinued Medications Medication Drug [...] microalbumin profile DTAP,TDAP ,TD (1 - Tdap) [facility] Immunizations Immunization Date Immunization Notes Care Provider Naomi chung 04-27-2019 influenza, high dose seasonal, preservative-free Alexia Federicoi [facility] 01-05-2018 influenza, high dose seasonal, preservative-free Alexia Lishnaidai [facility] 12-12-2014 influenza, seasonal, injectable Alexia Federicoi [facility] 06-15-2014 pneumococcal conjuga te vaccine, 13 valent Alexia Adamsladariusi [facility] 12-06-2013 influenza, seasonal, injectable Alexia Lishnnéstori [facility] 07-19-2013 tetanus and diphther ia toxoids, adsorbed, preservative free, for adult use (2 Lf of tetanus toxoid and 2 Lf of diphtheria toxoid) [facility] 01-[facility]2013 influenza, seasonal, injectable Alexia Orinhnaidai [facility] 01-13-2012 influenza, seasonal, injectable Alexia Federicoi [facility] 02-11-2011 influenza, seasonal, injectable [facility] 10-10-2010 zoster vaccine, live Allia Adamss [facility] 03-31-2006 pneumococcal polysaccharide vaccine, 23 valent [facility] Payers Date Payer Category Payer Unknown [id number] 1935 Unknown [id number] 2.16.8 [id number] 1935 Unknown [id number] 2.16.8 [id number] 1935 Unknown [id number] 2.16.8 [id number] 1935 Unknown [id number] 2.16.8 [id number] 1935 Unknown [id number] 2.16.8 [id number] 1935 Unknown [id number] 2.16.8 [id number] 1935 Unknown [id number] 2.16.8 [id number] Unknown [id number] Social History Date Type Detail Facility Start: 05-13-2019 Tobacco smoking stat us NHIS Former smoker [facility] End: 03-20-2008 History of tobacco use Current smoker [facility] End: 03-20-2008 History of tobacco use Cigarette Smoker [facility] Start: 05-13-2019 Cigarettes smoked cu rrent (pack per day) - Reported [facility] Start: 05-13-2019 Tobacco use and exposure Never used [facility] Start: 05-13-2019 Alcohol intake Current non-dr machine stemmer of alcohol (finding) [facility] Sex Assigned At Not on file [facility] Exposure to SARS-CoV -2 (event) Not sure [facility] Medical Equipment Procedure Code Equipment Code [...] DATE CREATED AUTHOR AUTHOR'S ORGANIZ ATION 11/12/2019 [facility] Source Comments (unrecognize d section and content) In the event this informatio n is protected by the Federal Confidentiality of Alcohol and Drug Abuse Patient Records regulations: The Federal rules restrict any use of the information to criminally investigate or prosecute any alcohol or drug abuse patient.[facility] the event this information is protected by the Federal Confidentiality of Alcohol and Drug Abuse Patient Records regulations: The Federal rules restrict any use of the information to criminally investigate or prosecute any alcohol or drug abuse patient.[facility] the event this information is protected by the Federal Confidentiality of Alcohol and Drug Abuse Patient Records regulations: The Federal rules restrict any use of the information to criminally investigate or prosecute any alcohol or drug abuse patient.[facility] the event this information is protected by the Federal Confidentiality of Alcohol and Drug Abuse Patient Records regulations: The Federal rules restrict any use of the information to criminally investigate or prosecute any alcohol or drug abuse patient.[facility] the event this information is protected by the Federal Confidentiality of Alcohol and Drug Abuse Patient Records regulations: The Federal rules restrict any use of the information to criminally investigate or prosecute any alcohol or drug abuse patient.[facility] Reason for Visit (unrecogniz ed section [...] Visit date not found Patient Phone numbers: [phone] (home) Request is for script(s) to be [...] BE BASED ON THE PRIMARY CLINICAL RECORDS. [employer] provides no warranty or guarantee of the accuracy or completeness of information in this document.
[2023-04-17 08:44] LABS: International Normalized Ratio 1.8
== END ==
PROVIDERS: PCP Family Medicine; Visit Provider Family Medicine
DX: Z79.01 Long term (current) use 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 (principal)
CPT/HCPCS: 36415; 85610

== ENCOUNTER → 2023-05-01 | Outpatient (REF) | payer MEDICARE, SELFPAY ==
--- OUTSIDE RECORDS SUMMARY | 2023-05-01 04:10 | XMS RPT_ITS | CCD ---
Author Name Unknown Address [address] [place] [address] Organization [facility] Care Team Providers Care Manager Of Case Management Name Role Phone LISHNEVSKI, ALEXIA Unavailable Unavailable [...] LISHNEVSKI, ALEXIA Unavailable Unavailable [facility] Unavailable [phone] Frank Gonzalez Unavailable Nirmal Kemp Unavailable Mohan Álvarez Unavailable [phone] Chacho Alaso Clive Unavailable Rosemary Doran Primary Care Provider Lishnlizeth Alexia Primary Care Provider [phone] Zenaida Henderson Unavailable Allergies Allergy Classification Reported Allergen(s) Allergy Type Date of Onset Reaction(s) Facility (6 sources) atorvastatin; 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: [ATORVASTATIN] Drug Allergy 5 Other: See Comments [facility] Repository (6 sources) codeine; 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: [CODEINE] Drug Allergy 5 Unknown [facility] Repository (6 sources) Latex; 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: [LATEX] Propensity to adverse reactions (disorder) 5 Rash [facility] Repository (6 sources) meperidine; 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: [MEPERIDINE] Drug Allergy 5 GI Upset [facility] Repository (6 sources) rosuvastatin; 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: [ROSUVASTATIN] Drug Allergy 5 Other: See Comments [facility] Repository Medications Completed/Discontinued Medications Medication Drug Class(es) [...] microalbumin profile DTAP,TDAP ,TD (1 - Tdap) [facility] Immunizations Immunization Date Immunization Notes Care Provider Naomi chung 04-27-2019 influenza, high dose seasonal, preservative-free Alexia Federicoi [facility] 01-05-2018 influenza, high dose seasonal, preservative-free Alexia Lishnaidai [facility] 12-12-2014 influenza, seasonal, injectable Alexia Federicoi [facility] 06-15-2014 pneumococcal conjuga te vaccine, 13 valent Alexia Adamsladariusi [facility] 12-06-2013 influenza, seasonal, injectable Alexia Lishnnéstori [facility] 07-19-2013 tetanus and diphther ia toxoids, adsorbed, preservative free, for adult use (2 Lf of tetanus toxoid and 2 Lf of diphtheria toxoid) [facility]2013 influenza, seasonal, injectable Alexia Orinhnaidai [facility] 01-13-2012 influenza, seasonal, injectable Alexia Federicoi [facility] 02-11-2011 influenza, seasonal, inject[facility] 10-10-2010 zoster vaccine, live Allia Adamss [facility] 03-31-2006 pneumococcal polysaccharide vaccine, 23 valent [place] Payers Date Payer Category Payer Unknown [id number] 1935 Unknown [id number] 2.16.8 [id number] 1935 Unknown [id number] 2.16.8 [id number] 1935 Unknown [id number] 2.16.8 [id number] 1935 Unknown [id number] 2.16.8 [id number] 1935 Unknown [id number] 2.16.8 [id number] 1935 Unknown [id number] 2.16.8 [id number] 1935 Unknown [id number] 2.16.8 [id number] Unknown [id number] Social History Date Type Detail Facility Start: 05-13-2019 Tobacco smoking stat us NHIS Former smoker [facility] End: 03-20-2008 History of tobacco use Current smoker [facility] End: 03-20-2008 History of tobacco use Cigarette Smoker [facility] Start: 05-13-2019 Cigarettes smoked cu rrent (pack per day) - Reported [facility] Start: 05-13-2019 Tobacco use and exposure Never used [facility] Start: 05-13-2019 Alcohol intake Current non-dr manager social responsibility of alcohol (finding) [facility] Sex Assigned At Not on file [facility] Exposure to SARS-CoV -2 (event) Not sure [facility] Medical Equipment Procedure Code Equipment Code Equipment [...] DATE CREATED AUTHOR AUTHOR'S ORGANIZ ATION 11/12/2019 [facility] Source Comments (unrecognize d section and content) In the event this informatio n is protected by the Federal Confidentiality of Alcohol and Drug Abuse Patient Records regulations: The Federal rules restrict any use of the information to criminally investigate or prosecute any alcohol or drug abuse patient.[facility] the event this information is protected by the Federal Confidentiality of Alcohol and Drug Abuse Patient Records regulations: The Federal rules restrict any use of the information to criminally investigate or prosecute any alcohol or drug abuse patient.[facility] the event this information is protected by the Federal Confidentiality of Alcohol and Drug Abuse Patient Records regulations: The Federal rules restrict any use of the information to criminally investigate or prosecute any alcohol or drug abuse patient.[facility] the event this information is protected by the Federal Confidentiality of Alcohol and Drug Abuse Patient Records regulations: The Federal rules restrict any use of the information to criminally investigate or prosecute any alcohol or drug abuse patient.[facility] the event this information is protected by the Federal Confidentiality of Alcohol and Drug Abuse Patient Records regulations: The Federal rules restrict any use of the information to criminally investigate or prosecute any alcohol or drug abuse patient.[facility] Reason for Visit (unrecogniz ed section and [...] Visit date not found Patient Phone numbers: [phone] (home) Request is for script(s) to be [...] BE BASED ON THE PRIMARY CLINICAL RECORDS. [employer] provides no warranty or guarantee of the accuracy or completeness of information in this document.
== END ==
PROVIDERS: PCP Family Medicine; Visit Provider Family Medicine
DX: Z79.01 Long term (current) use 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 (principal)
CPT/HCPCS: 36416; 85610

== ENCOUNTER → 2023-05-12 | Outpatient (REF) | payer MEDICARE, SELFPAY ==
--- OUTSIDE RECORDS SUMMARY | 2023-05-12 03:48 | XMS RPT_ITS | CCD ---
Author Name Unknown Address [address] [place] [address] Organization [facility] Care Team Providers Care Tallow Maker Name Role Phone LISHNEVSKI, ALEXIA Unavailable Unavailable [...] Unavailable Frank Gonzalez Unavailable Nirmal Kemp Unavailable [phone] Mohan Álvarez Unavailable Chacho Alaso Clive Unavailable Rosemary Dorna Primary Care Provider Lishnlizeth Alexia Primary Care Provider Zenaida Henderson Unavailable Allergies Allergy Classification Reported Allergen(s) Allergy Type Date of Onset Reaction(s) Facility (6 sources) atorvastatin; 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: [ATORVASTATIN] Drug Allergy 5 Other: See Comments [facility] Repository (6 sources) codeine; 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: [CODEINE] Drug Allergy 5 Unknown [facility] Repository (6 sources) Latex; 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: [LATEX] Propensity to adverse reactions (disorder) 5 Rash [facility] Repository (6 sources) meperidine; 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: [MEPERIDINE] Drug Allergy 5 GI Upset [facility] Repository (6 sources) rosuvastatin; 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: [ROSUVASTATIN] Drug Allergy 5 Other: See Comments [facility] Repository Medications Completed/Discontinued Medications Medication Drug Class(es) [...] microalbumin profile DTAP,TDAP ,TD (1 - Tdap) [facility] Immunizations Immunization Date Immunization Notes Care Provider Naomi chung 04-27-2019 influenza, high dose seasonal, preservative-free Alexia Federicoi [facility] 01-05-2018 influenza, high dose seasonal, preservative-free Alexia Lishnaidai [facility] 12-12-2014 influenza, seasonal, injectable Alexia Federicoi [facility] 06-15-2014 pneumococcal conjuga te vaccine, 13 valent Alexia Adamsladariusi [facility] 12-06-2013 influenza, seasonal, injectable Alexia Lishnnéstori [facility] 07-19-2013 tetanus and diphther ia toxoids, adsorbed, preservative free, for adult use (2 Lf of tetanus toxoid and 2 Lf of diphtheria toxoid) [facility] 01-[facility]2013 influenza, seasonal, injectable Alexia Orinhnaidai [facility] 01-13-2012 influenza, seasonal, injectable Alexia Federicoi [facility] 02-11-2011 influenza, seasonal, injectable [facility] 10-10-2010 zoster vaccine, live Allia Adamss [facility] 03-31-2006 pneumococcal polysaccharide vaccine, 23 valent [facility] Payers Date Payer Category Payer Unknown [id number] 1935 Unknown [id number] 2.16.8 [id number] 1935 Unknown [id number] 2.16.8 [id number] 1935 Unknown [id number] 2.16.8 [id number] 1935 Unknown [id number] 2.16.8 [id number] 1935 Unknown [id number] 2.16.8 [id number] 1935 Unknown [id number] 2.16.8 [id number] 1935 Unknown [id number] 2.16.8 [id number] Unknown [id number] Social History Date Type Detail Facility Start: 05-13-2019 Tobacco smoking stat us NHIS Former smoker [facility] End: 03-20-2008 History of tobacco use Current smoker [facility] End: 03-20-2008 History of tobacco use Cigarette Smoker [facility] Start: 05-13-2019 Cigarettes smoked cu rrent (pack per day) - Reported [facility] Start: 05-13-2019 Tobacco use and exposure Never used [facility] Start: 05-13-2019 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) [facility] Sex Assigned At Not [facility] file [facility] Exposure to SARS-CoV -2 (event) Not sure [facility] Medical Equipment Procedure Code Equipment Code Equipment [...] DATE CREATED AUTHOR AUTHOR'S ORGANIZ ATION 11/12/2019 [facility] Source Comments (unrecognize d section and content) In the event this informatio n is protected by the Federal Confidentiality of Alcohol and Drug Abuse Patient Records regulations: The Federal rules restrict any use of the information to criminally investigate or prosecute any alcohol or drug abuse patient.[facility] the event this information is protected by the Federal Confidentiality of Alcohol and Drug Abuse Patient Records regulations: The Federal rules restrict any use of the information to criminally investigate or prosecute any alcohol or drug abuse patient.[facility] the event this information is protected by the Federal Confidentiality of Alcohol and Drug Abuse Patient Records regulations: The Federal rules restrict any use of the information to criminally investigate or prosecute any alcohol or drug abuse patient.[facility] the event this information is protected by the Federal Confidentiality of Alcohol and Drug Abuse Patient Records regulations: The Federal rules restrict any use of the information to criminally investigate or prosecute any alcohol or drug abuse patient.[facility] CenterIn the event this information is protected by the Federal Confidentiality of Alcohol and Drug Abuse Patient Records regulations: The Federal rules restrict any use of the information to criminally investigate or prosecute any alcohol or drug abuse patient.[facility] Reason for Visit (unrecogniz ed section and [...] Visit date not found Patient Phone numbers: [phone] (home) Request is for script(s) to be [...] BE BASED ON THE PRIMARY CLINICAL RECORDS. [employer] provides no warranty or guarantee of the accuracy or completeness of information in this document.
[2023-05-12 09:24] LABS: Absolute Neutrophil Count 5.3 X10^3/uL (2.0-7.7); Basophil# 0.04 X10^3/uL; Basophil% 0.5 % (0-1); Eosinophil# 0.29 X10^3/uL; Eosinophils% 3.7 % (0-5); Hematocrit 41.8 % (37-47); Hemoglobin 13.1 g/dL (12.0-15.0); Lymphocyte % 20.2 % (19-41); Mean Corp Hgb Conc 31.3 g/dL (32-36); Mean Corpuscular Hgb 29.2 pg (27.0-32.0); Mean Corpuscular Volume 93.1 fL (81-99); Mean Platelet Vol. 10.6 fl (6.2-12.0); Monocyte# 0.62 X10^3/uL; Monocyte% 7.8 % (0-10); NRBC Flagged by Analyzer 0 % (0-5); Neutrophil # 5.34 X10^3/uL (2.7-7.7); Neutrophil % 67.5 % (47-70); Platelet Count 272 K/mm3 (150-450); RBC Distribution Width CV 13.5 % (11.6-14.6); Red Blood Count 4.49 M/mm3 (4.2-5.4); White Blood Count 7.9 K/mm3 (4.4-11.0)
[2023-05-12 10:06] LABS: Anion Gap 6 (5-15); BUN 17 mg/dL (7-18); BUN/Creat Ratio 13.7 RATIO (10-20); Calcium,Total 8.5 mg/dL (8.5-10.1); Chloride 109 mmol/L (98-107); Creatinine, Serum 1.24 mg/dL (0.55-1.02); EST Glomerular Filtration Rate 43 mL/min (>60); Est Glom Filt Rate - Afr Amer 53 mL/min (>60); Glucose 206 mg/dL (74-106); Potassium 4.6 mmol/L (3.5-5.1); Sodium Level 140 mmol/L (136-145)
[2023-05-12 14:30] LABS: Hemoglobin A1c 6.8 % (3.8-5.6)
== END ==
PROVIDERS: PCP Family Medicine; Visit Provider Family Medicine
DX: I10 Essential (primary) hypertension (principal); Z79.899 Other long term (current) drug therapy
CPT/HCPCS: 36415; 80048; 83036; 85025

== ENCOUNTER → 2023-05-30 | Outpatient (REF) | payer MEDICARE, SELFPAY ==
--- OUTSIDE RECORDS SUMMARY | 2023-05-30 04:45 | XMS RPT_ITS | CCD ---
Author Name Unknown Address [address] [place] [address] Organization [facility] Care Team Providers Care Application Trainer Name Role Phone LISHNEVSKI, ALEXIA Unavailable Unavailable [...] Clive Unavailable Rosemary Doran Primary Care Provider [phone] Lishnlizeth Alexia Primary Care Provider [phone] Zenaida Henderson Unavailable Allergies Allergy Classification Reported Allergen(s) Allergy Type Date of Onset Reaction(s) Facility (6 sources) atorvastatin; 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: [ATORVASTATIN] Drug Allergy 5 Other: See Comments [facility] Repository (6 sources) codeine; 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: [CODEINE] Drug Allergy 5 Unknown [facility] Repository (6 sources) Latex; 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: [LATEX] Propensity to adverse reactions (disorder) 5 Rash [facility] Repository (6 sources) meperidine; 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: [MEPERIDINE] Drug Allergy 5 GI Upset [facility] Repository (6 sources) rosuvastatin; 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: [ROSUVASTATIN] Drug Allergy 5 Other: See Comments [facility] Repository Medications Completed/Discontinued Medications Medication Drug [...] microalbumin profile DTAP,TDAP ,TD (1 - Tdap) [facility] Immunizations Immunization Date Immunization Notes Care Provider Naomi chung 04-27-2019 influenza, high dose seasonal, preservative-free Alexia Federicoi [facility] 01-05-2018 influenza, high dose seasonal, preservative-free Alexia Lishnaidai [facility] 12-12-2014 influenza, seasonal, injectable Alexia Federicoi [facility] 06-15-2014 pneumococcal conjuga te vaccine, [address] [facility] 12-06-2013 influenza, seasonal, injectable Alexia Lishnnéstori [facility] 07-19-2013 tetanus and diphther ia toxoids, adsorbed, preservative free, for adult use (2 Lf of tetanus toxoid and 2 Lf of diphtheria toxoid) [facility] 01-[facility]2013 influenza, seasonal, injectable Alexia Orinhnaidai [facility] 01-13-2012 influenza, seasonal, injectable Alexia Federicoi [facility] 02-11-2011 influenza, seasonal, injectable [facility]-10[facility]2010 zoster vaccine, live Allia Adamss [facility] 03-31-2006 pneumococcal polysaccharide vaccine, 23 valent [place] Payers Date Payer Category Payer Unknown [id number] 1935 Unknown [id number] 2.16.8 [id number] 1935 Unknown [id number] 2.16.8 [id number] 1935 Unknown [id number] 2.16.8 [id number] 1935 Unknown [id number] 2.16.8 [id number] 1935 Unknown [id number] 2.16.8 [id number] 1935 Unknown [id number] 2.16.8 [id number] 1935 Unknown [id number] 2.16.8 [id number] Unknown [id number] Social History Date Type Detail Facility Start: 05-13-2019 Tobacco smoking stat us NHIS Former smoker [facility] End: 03-20-2008 History of tobacco use Current smoker [facility] End: 03-20-2008 History of tobacco use Cigarette Smoker [facility] Start: 05-13-2019 Cigarettes smoked cu rrent (pack per day) - Reported [facility] Start: 05-13-2019 Tobacco use and exposure Never used 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 Sex Assigned At [facility] file [facility] Exposure to SARS-CoV -2 (event) Not sure [facility] Medical Equipment Procedure Code Equipment Code [...] DATE CREATED AUTHOR AUTHOR'S ORGANIZ ATION 11/12/2019 [facility] Source Comments (unrecognize d section and content) In the event this informatio n is protected by the Federal Confidentiality of Alcohol and Drug Abuse Patient Records regulations: The Federal rules restrict any use of the information to criminally investigate or prosecute any alcohol or drug abuse patient.[facility] the event this information is protected by the Federal Confidentiality of Alcohol and Drug Abuse Patient Records regulations: The Federal rules restrict any use of the information to criminally investigate or prosecute any alcohol or drug abuse patient.[facility] the event this information is protected by the Federal Confidentiality of Alcohol and Drug Abuse Patient Records regulations: The Federal rules restrict any use of the information to criminally investigate or prosecute any alcohol or drug abuse patient.[facility] the event this information is protected by the Federal Confidentiality of Alcohol and Drug Abuse Patient Records regulations: The Federal rules restrict any use of the information to criminally investigate or prosecute any alcohol or drug abuse patient.[facility] the event this information is protected by the Federal Confidentiality of Alcohol and Drug Abuse Patient Records regulations: The Federal rules restrict any use of the information to criminally investigate or prosecute any alcohol or drug abuse patient.[facility] Reason for Visit (unrecogniz ed section [...] Visit date not found Patient Phone numbers: [phone] (home) Request is for script(s) to be [...] BE BASED ON THE PRIMARY CLINICAL RECORDS. [employer] provides no warranty or guarantee of the accuracy or completeness of information in this document.
[2023-05-30 08:15] LABS: INR Fingerstick 1.7
== END ==
PROVIDERS: PCP Family Medicine; Visit Provider Family Medicine
DX: Z79.01 Long term (current) use 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 (principal)
CPT/HCPCS: 36416; 85610

== ENCOUNTER 2023-06-16 08:32 | Emergency (ER) | payer MEDICARE, SELFPAY ==
[2023-06-16 08:33] VITALS: BP 170/88; PULSE 76; RESP 18; TEMP 35.8; O2SAT 95; BMI 33.1
--- NOTE | 2023-06-16 08:34 | EKG12_ITS ---
Test Reason : FALL Blood Pressure : / mmHG Vent. Rate : 072 BPM Atrial Rate : 000 BPM P-R Int : 000 ms QRS Dur : 104 ms QT Int : 386 ms P-R-T Axes : 000 -38 046 degrees QTc Int : 422 ms Poor data quality, interpretation may be adversely affected Atrial fibrillation Left axis deviation Moderate voltage criteria for LVH, may be normal variant ( R in aVL , Langtry product ) Abnormal ECG Confirmed by CONRAD LENNON, ALIX ([id number]), editor greeting card BAUTISTA GREEN ([id number]) on 06/17/2023 8:00:13 AM Referred By: Confirmed By:ALIX MARTINES MD
--- NOTE | 2023-06-16 08:34 | CT_ITS ---
STUDY: CT BRAIN WITHOUT CONTRAST REASON FOR EXAM: Female, 87 years old. Head trauma. RADIATION DOSAGE (If Supplied By Facility): CTDIvol = ( 44.99 ) mGy, DLP = ( 745.49 ) mGycm TECHNIQUE: Transaxial CT imaging of the brain was performed without administration of intravenous contrast material. Individualized dose optimization techniques were used for this CT. COMPARISON: Comparison is made with prior study dated December 27, 2022 and November 18, 2022. FINDINGS: Normal soft tissue structures. Normal calvarium. There is mild cerebral atrophy with widening of the extra-axial spaces and ventricular dilatation. There are areas of decreased attenuation within the white matter tracts of the supratentorial brain, consistent with microvascular disease changes. Normal basal ganglia and thalami. Normal brainstem. Normal cerebellum. There is no intracranial hemorrhage. There are no findings of an acute ischemic infarction. Atherosclerotic plaque formation of the vertebral arteries and cavernous portions of the internal carotid arteries bilaterally. Normal visualized paranasal sinuses. CT/Brain/Head without Contrast IMPRESSION: Chronic involutional changes of the brain. Electronically Signed: Mio Gipson MD at 9:27 EDT ,
--- NOTE | 2023-06-16 08:40 | EDS_ITS ---
HPI History of Present Illness Chief Complaint: Fall Informant: patient and EMS Narrative Narrative: Patient presents via EMS after a fall. She reportedly fell this morning at [place] after falling over a cord. She injured her right elbow. EMS states she was sitting in a chair on their arrival to scene. She had mumbling speech at that time which staff stated was not normal for her and then she had a brief unresponsive episode. As they were placing her on the cot patient became alert and appropriate, answering questions. On arrival to the ER she complains only of right elbow pain. She states that she tripped over a cord and did not pass out when she fell. She does report a history of frequent TIAs or spells where she will have trouble speaking and have decreased level of consciousness for up to half hour at a time and then it resolves. Patient is on Coumadin chronically. [facility] Medical History (Updated 06/16/23 @ 10:[address] 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) Osteoarthritis Paroxysmal atrial fibrillation Persistent atrial fibrillation Pleural effusion on right (09/2019) Spinal stenosis Type 2 diabetes mellitus Home Medications multivitamin 1 cap PO DAILY 12/10/19 [History Last Taken 12/27/22] metoprolol succinate 25 mg tablet,extended release 24 hr 25 mg PO BID #90 tabs 05/16/22 [Rx Last Taken 12/27/22] warfarin 2.5 mg tablet 2.5 mg PO DAILY 10/15/22 [History Last Taken 12/26/22] omeprazole 20 mg capsule,delayed release 20 mg PO DAILY reflux 11/14/22 [History Last Taken 12/27/22] atorvastatin 40 mg tablet 40 mg PO QHS 01/20/23 [History Last Taken Unknown] donepezil 10 mg tablet 10 mg PO QHS #30 tabs 04/30/23 [Rx Last Taken Unknown] ascorbic acid (vitamin C) 250 mg tablet 250 mg PO DAILY 05/19/23 [History Last Taken Unknown] diphenhydramine HCl 25 mg tablet (Allergy (diphenhydramine)) 25 mg PO QHS PRN 05/19/23 [History Last Taken Unknown] lamotrigine 25 mg tablet 50 mg (2 x 25 mg) PO BID #120 tabs 05/19/23 [Rx Last Taken Unknown] Allergy/AdvReac Type Severity Reaction Status Date / Time latex Allergy rash Verified 05/19/23 11:28 amiodarone AdvReac Severe Hair Verified 05/19/23 11:28 falling out in gobs atorvastatin [From Lipitor] AdvReac myalgia Verified 05/19/23 11:28 codeine AdvReac Nausea Verified 05/19/23 11:28 meperidine [From Demerol] AdvReac Nausea/Vom/ Verified 05/19/23 11:28 Diarrhea rosuvastatin [From Crestor] AdvReac myalgia Verified 05/19/23 11:28 Family History Father CAD (coronary artery disease) Brother CAD (coronary artery disease) Surgical History History of coronary artery stent placement (02/14/07) History of knee replacement History of kyphoplasty (~05/2020) History of left heart catheterization (12/27/19) History of left hip replacement History of radiofrequency ablation procedure for cardiac arrhythmia (2011) History of repair of rotator cuff Social History housing: assisted living facility Smoking Status: Former smoker how long ago did patient quit smokin years ago alcohol intake: former substance use type: does not use caffeine: No ROS ROS ED Constitutional Constitutional ED: Denies chills or fever(s) Eyes Eyes: Denies discharge from eye(s) ENT ENT ED: Denies discharge from eye(s), rhinorrhea or sore throat Cardiovascular Cardiovascular: Denies chest pain or palpitations Respiratory/Chest Respiratory/Chest: Denies cough or dyspnea Gastrointestinal Gastrointestinal: Denies abdominal pain, nausea or vomiting Musculoskeletal Musculoskeletal: Reports extremity pain; Denies back pain Integumentary Denies Abrasions or rash Neurologic Neurologic: Denies headache(s) or weakness Allergic/Immunologic Allergic/Immunologic ED: Denies lip swelling or urticaria EXAM Physical Exam Const Vital Signs: 06/16/23 08:33 06/16/23 08:39 06/16/23 10:43 Temperature 96.4 F L Temperature Source Temporal Pulse Rate 76 77 Respiratory Rate 18 16 Respiratory Effort Normal Respiratory Depth Normal Respiratory Pattern Normal Blood Pressure 170/88 H 130/104 H Blood Pressure Mean 115 112 Pulse Ox 95 95 Oxygen Delivery Method Room Air Room Air Room Air Positive well nourished and well developed General Appearance ED: well developed HEENT Reports moist mucous membranes Eyes EOMs intact bilaterally Chest Wall inspection of chest normal and palpation of chest normal Resp normal respiratory effort and clear to auscultation bilaterally Cardio regular rate and regular rhythm GI non-tender Palpation: soft Extremity Extremity Narrative: Tenderness to palpation around the right elbow with no obvious deformity. Good distal pulses and can wiggle fingers. No tenderness at the proximal humerus or wrist on the right. Neuro Neuro Narrative: Patient alert and appropriate, answering questions. Skin no rashes or lesions noted MDM MDM MDM Narrative Medical decision making narrative: Patient placed on monitoring analyst. EKG obtained to evaluate for cardiac arrhythmia/ischemia. Chest x-ray obtained to evaluate for acute lung pathology, cardiac size, or mediastinal abnormality. IV line established. Labwork obtained to evaluate for leukocytosis, anemia, and electrolyte derangement. Right elbow x-rays obtained to evaluate for potential fracture. CT scan of the head obtained given her fall and anticoagulation to evaluate for potential ble ed. Patient given fentanyl for pain control. History & Record Review Discussion w/independent historian: Patient Lab Data Attestation: I reviewed the patient's lab results. Labs: Laboratory Results - last 24 hr 06/16/23 08:53 WBC 16.8 H RBC 4.72 Hgb 13.6 Hct 42.6 MCV 90.3 MCH 28.8 MCHC 31.9 L RDW Std Deviation 43.9 RDW Coeff of Sumeet 13.3 Plt Count 414 MPV 9.9 Immature Gran % (Auto) 0.500 Neut % (Auto) 67.8 Lymph % (Auto) 23.0 [place] % (Auto) 7.0 Eos % (Auto) 1.3 Baso % (Auto) 0.4 Absolute Neuts (auto) 11.4 H Absolute Lymphs (auto) 3.86 Nucleated RBC % 0 PT 24.3 H INR 2.2 Sodium 140 Potassium 3.4 L Chloride 104 Carbon Dioxide 31.0 Anion Gap 5 BUN 24 H Creatinine 1.15 H Estim Creat Clear Calc 35.56 Est GFR (MDRD) Af Amer 57 L Est GFR (MDRD) Non-Af 47 L BUN/Creatinine Ratio 20.9 H Glucose 191 H Calcium 8.8 Radiography Diagnostic Testing: Clinical Impression(s) from Imaging Studies Brain CT 06/16/23 08:34 IMPRESSION: Chronic involutional changes of the brain. Electronically Signed: Mio Gipson MD at 9:27 EDT , Chest X-Ray 06/16/23 09:15 IMPRESSION: Stable increased markings at the lung bases suggestive of bibasilar scarring with blunting of both costophrenic angles. Electronically Signed: Mio Gipson MD at 9:32 EDT , Elbow X-Ray 06/16/23 09:15 IMPRESSION: Comminuted slightly displaced supracondylar fracture of the distal humerus with extension to the medial epicondyle. Joint effusion and soft tissue swelling. Electronically Signed: Mio Gipson MD at 9:30 EDT , Treatment and Re-Evaluation :: CBC was a white count of 16.8 with normal differential. Hemoglobin is 13.6. INR is 2.2. Chemistry studies significant for BUN of 24 and creatinine 1.15. Glucose is 191. Portable chest x-ray per my interpretation reveals chronic changes with no focal infiltrate. Radiology interpretation reviewed and agrees. Right elbow x-ray per my interpretation reveals a distal humerus fracture with fracture across the medial epicondyle. Radiology interpretation reviewed. They do agree patient has a supracondylar fracture with extension into the medial epicondyle. CT scan of the head reveals chronic involutional changes. Patient placed in a posterior splint with Ortho-Glass. Before and after splinting patient has good cap refill distally, normal sensation, and can wiggle fingers. I spoke with Dr. Chatterjee, on-call for orthopedics. He states that typically Dr. Clark from their practice will do this however he is out sick this week. He suggested checking with Dr. Carney as he will do upper extremity. I spoke w ith Dr. Carney and he does not do distal humerus fractures. With patient's advanced age, right hand dominance and now with right arm splinted, on Coumadin, and concern for pain control I do feel she will need admission for her fracture to be addressed and controlled. Patient has been accepted at [facility]. Transport will be arranged. Discharge Plan Triage Chief Complaint: Fall ED Provider: Lali Pimentel Dx/Rx/DC Orders Clinical Impression: Episode of syncope, Supracondylar fracture of humerus, Fall Prescriptions: No Action multivitamin capsule 1 cap PO DAILY warfarin 2.5 mg tablet 2.5 mg PO DAILY Patient Comments: TAKE 1 TABLET BY MOUTH ONCE DAILY Rx Instructions: Managed by PCP atorvastatin 40 mg tablet 40 mg PO QHS donepezil 10 mg tablet 10 mg PO QHS Qty: 30 5RF lamotrigine 25 mg tablet 50 mg PO BID Qty: 120 5RF ascorbic acid (vitamin C) 250 mg tablet 250 mg PO DAILY diphenhydramine HCl [Allergy (diphenhydramine)] 25 mg tablet 25 mg PO QHS PRN omeprazole 20 mg capsule,delayed release(DR/EC) 20 mg PO DAILY metoprolol succinate 25 mg tablet extended release 24 hr 25 mg PO BID Qty: 90 3RF Primary Care Provider: Rosemary Doran Referrals: Alexandra Hagen MD [Med Staff - Javascript Ui Developer] - Disposition Disposition: Acute Care Hospital Discharge Location: [facility]
[2023-06-16] MEDS: 0.9% Normal Saline (1000mL) 1,000 ML 150 ML IV (08:51)
[2023-06-16] MEDS: fentaNYL 100 MCG/2 ML Ampul 12.5 MCG IV ×3 (09:03→11:37)
[2023-06-16 09:06] LABS: Absolute Lymphocyte Count 3.86 X10^3/uL (0.83-4.51); Absolute Neutrophil Count 11.4 X10^3/uL (2.0-7.7); Basophil# 0.07 X10^3/uL; Basophil% 0.4 % (0-1); Eosinophil# 0.22 X10^3/uL; Eosinophils% 1.3 % (0-5); Hematocrit 42.6 % (37-47); Hemoglobin 13.6 g/dL (12.0-15.0); Lymphocyte # 3.86 X10^3/ul (0.83-4.51); Mean Corp Hgb Conc 31.9 g/dL (32-36); Mean Corpuscular Hgb 28.8 pg (27.0-32.0); Mean Corpuscular Volume 90.3 fL (81-99); Mean Platelet Vol. 9.9 fl (6.2-12.0); Monocyte# 1.17 X10^3/uL; NRBC Flagged by Analyzer 0 % (0-5); Neutrophil # 11.35 X10^3/uL (2.7-7.7); Neutrophil % 67.8 % (47-70); Platelet Count 414 K/mm3 (150-450); RBC Distribution Width CV 13.3 % (11.6-14.6); RBC Distribution Width SD 43.9 fl (35.1-43.9); Red Blood Count 4.72 M/mm3 (4.2-5.4); White Blood Count 16.8 K/mm3 (4.4-11.0)
--- NOTE | 2023-06-16 09:15 | RAD_ITS ---
STUDY: X-RAY - RIGHT ELBOW REASON FOR EXAM: Female, 87 years old. Right elbow injury due to a fall. TECHNIQUE: 4 view(s) of the elbow. COMPARISON: None. FINDINGS: There is a comminuted slightly displaced supracondylar condylar fracture of the distal humerus. There is extension of the fracture into the medial epicondyles. Normal radiocapitellar and ulnotrochlear articulations. Diffuse soft tissue swelling and joint effusion. RAD/Elbow min 3 Views IMPRESSION: Comminuted slightly displaced supracondylar fracture of the distal humerus with extension to the medial epicondyle. Joint effusion and soft tissue swelling. Electronically Signed: Mio Gipson MD at 9:30 EDT ,
--- NOTE | 2023-06-16 09:15 | RAD_ITS ---
STUDY: X-RAY CHEST REASON FOR EXAM: Female, 87 years old. Sob TECHNIQUE: Single AP portable view of the chest. COMPARISON: Comparison is made with prior study dated December 27, 2022. FINDINGS: EKG electrodes are seen. Stable increased markings at the lung bases with blunting of both costophrenic angles in keeping with chronic bibasilar scarring. Normal size heart. Normal mediastinum and mary grace. Normal visualized pulmonary arteries. There is atherosclerotic calcification of the aortic arch with tortuosity. There are diffuse degenerative changes of the visualized thoracic spine. There is degenerative osteoarthritis of the bilateral shoulders. There is no demonstrated abnormality of the visualized soft tissue structures of the upper abdomen. RAD/Chest 1 View (Portable) IMPRESSION: Stable increased markings at the lung bases suggestive of bibasilar scarring with blunting of both costophrenic angles. Electronically Signed: Mio Gipson MD at 9:32 EDT ,
[2023-06-16 09:17] LABS: Anion Gap 5 (5-15); BUN 24 mg/dL (7-18); BUN/Creat Ratio 20.9 RATIO (10-20); Calcium,Total 8.8 mg/dL (8.5-10.1); Chloride 104 mmol/L (98-107); Creatinine, Serum 1.15 mg/dL (0.55-1.02); EST Glomerular Filtration Rate 47 mL/min (>60); Est Glom Filt Rate - Afr Amer 57 mL/min (>60); Estimated Creatinine Clearance 35.56 ml/min; Glucose 191 mg/dL (74-106); Potassium 3.4 mmol/L (3.5-5.1); Sodium Level 140 mmol/L (136-145)
[2023-06-16 09:30] LABS: International Normalized Ratio 2.2; Prothrombin Time (Protime)PT. 24.3 SECONDS (11.7-14.9)
--- NOTE | 2023-06-16 10:12 | CONS.ORTHO ---
HPI Consult Data Date of Consult: 06/16/23 HPI Narrative HPI Narrative: EZRA GONZALEZ, is a 87 F who presents with a right distal humerus fracture. Patient apparently is in assisted there a fall. According to the ED physician Dr. Mack who called me today this is a closed neurovascularly intact injury. 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) Osteoarthritis Paroxysmal atrial fibrillation Persistent atrial fibrillation Pleural effusion on right (09/2019) Spinal stenosis Type 2 diabetes mellitus Home Medications multivitamin 1 cap PO DAILY 12/10/19 [History Last Taken 12/27/22] metoprolol succinate 25 mg tablet,extended release 24 hr 25 mg PO BID #90 tabs 05/16/22 [Rx Last Taken 12/27/22] warfarin 2.5 mg tablet 2.5 mg PO DAILY 10/15/22 [History Last Taken 12/26/22] omeprazole 20 mg capsule,delayed release 20 mg PO DAILY reflux 11/14/22 [History Last Taken 12/27/22] atorvastatin 40 mg tablet 40 mg PO QHS 01/20/23 [History Last Taken Unknown] donepezil 10 mg tablet 10 mg PO QHS #30 tabs 04/30/23 [Rx Last Taken Unknown] ascorbic acid (vitamin C) 250 mg tablet 250 mg PO DAILY 05/19/23 [History Last Taken Unknown] diphenhydramine HCl 25 mg tablet (Allergy (diphenhydramine)) 25 mg PO QHS PRN 05/19/23 [History Last Taken Unknown] lamotrigine 25 mg tablet 50 mg (2 x 25 mg) PO BID #120 tabs 05/19/23 [Rx Last Taken Unknown] Allergy/AdvReac Type Severity Reaction Status Date / Time latex Allergy rash Verified 05/19/23 11:28 amiodarone AdvReac Severe Hair Verified 05/19/23 11:28 falling out in gobs atorvastatin [From Lipitor] AdvReac myalgia Verified 05/19/23 11:28 codeine AdvReac Nausea Verified 05/19/23 11:28 meperidine [From Demerol] AdvReac Nausea/Vom/ Verified 05/19/23 11:28 Diarrhea rosuvastatin [From Crestor] AdvReac myalgia Verified 05/19/23 11:28 Family History Father CAD (coronary artery disease) Brother CAD (coronary artery disease) Surgical History History of coronary artery stent placement (02/14/07) History of knee replacement History of kyphoplasty (~05/2020) History of left heart catheterization (12/27/19) History of left hip replacement History of radiofrequency ablation procedure for cardiac arrhythmia (2011) History of repair of rotator cuff Social History housing: assisted living facility Smoking Status: Former smoker how long ago did patient quit smokin years ago alcohol intake: former substance use type: does not use caffeine: No Vital Signs Vital Signs Vital Signs: 06/16/23 08:33 06/16/23 08:39 Temperature 96.4 F L Temperature Source Temporal Pulse Rate 76 Respiratory Rate 18 Respiratory Effort Normal Respiratory Depth Normal Respiratory Pattern Normal Blood Pressure 170/88 H Blood Pressure Mean 115 Pulse Ox 95 Oxygen Delivery Method Room Air Room Air Weight Weight: 186 lb 15.232 oz Body Mass Index (BMI) 33.1 Lab / Micro Data 06/16/23 08:53 06/16/23 08:53 Labs: Laboratory Results - last 24 hr 06/16/23 08:53: WBC 16.8 H, RBC 4.72, Hgb 13.6, Hct 42.6, MCV 90.3, MCH 28.8, MCHC 31.9 L, RDW Std Deviation 43.9, RDW Coeff of Sumeet 13.3, Plt Count 414, MPV 9.9, Immature Gran % (Auto) 0.500, Neut % (Auto) 67.8, Lymph % (Auto) 23.0, [place] % (Auto) 7.0, Eos % (Auto) 1.3, Baso % (Auto) 0.4, Absolute Neuts (auto) 11.4 H, Absolute Lymphs (auto) 3.86, Nucleated RBC % 0, PT 24.3 H, INR 2.2, Sodium 140, Potassium 3.4 L, Chloride 104, Carbon Dioxide 31.0, Anion Gap 5, BUN 24 H, Creatinine 1.15 H, Estim Creat Clear Calc 35.56, Est GFR (MDRD) Af Amer 57 L, Est GFR (MDRD) Non-Af 47 L, BUN/Creatinine Ratio 20.9 H, Glucose 191 H, Calcium 8.8 Imaging Radiology Impression Brain CT 06/16/23 08:34 IMPRESSION: Chronic involutional changes of the brain. Electronically Signed: Mio Gipson MD at 9:27 EDT , Chest X-Ray 06/16/23 09:15 IMPRESSION: Stable increased markings at the lung bases suggestive of bibasilar scarring with blunting of both costophrenic angles. Electronically Signed: Mio Gipson MD at 9:32 EDT , Elbow X-Ray 06/16/23 09:15 IMPRESSION: Comminuted slightly displaced supracondylar fracture of the distal humerus with extension to the medial epicondyle. Joint effusion and soft tissue swelling. Electronically Signed: Mio Gipson MD at 9:30 EDT , Assessment & Plan Assessment/Plan (1) Closed fracture of right distal humerus: PLAN: 87-year-old female with right distal humerus fracture. Per the ED physician this is closed neurovascularly intact. This is not a surgery I routinely perform and the patient is a low demand elderly female with a distal humerus fracture may even benefit from a total elbow arthroplasty vs ORIF. This will have to be referred to a different surgeon unfortunately not myself they should be in the meantime put into a splint and referred as an outpatient. Dr. Mack understands no further questions or concerns.
--- NOTE | 2023-06-16 10:39 | NURSING ---
CALLED [facility]. TRAUMA DR FOR DR SILVA
[2023-06-16 10:43] VITALS: BP 130/104; PULSE 77; RESP 16; O2SAT 95
--- NOTE | 2023-06-16 10:48 | NURSING ---
CALLED [facility], ETA IS 30 MIN
[2023-06-16 11:02] VITALS: BP 157/84; PULSE 72; RESP 16; TEMP 35.8; O2SAT 96
== END 2023-06-16 11:45 | disposition short-term general hospital (02) ==
PROVIDERS: Emergency Provider Emergency Medicine; PCP Family Medicine; Visit Provider Emergency Medicine
DX: S42.411A Displaced simple supracondylar fracture without intercondylar fracture of right humerus, initial encounter for closed fracture (principal); I13.0 Hypertensive heart and chronic kidney disease with heart failure and stage 1 through stage 4 chronic kidney disease, or unspecified chronic kidney disease; I50.32 Chronic diastolic (congestive) heart failure; E11.22 Type 2 diabetes mellitus with diabetic chronic kidney disease; I48.11 Longstanding persistent atrial fibrillation; R55 Syncope and collapse; Z87.891 Personal history of nicotine dependence; Z79.01 Long term (current) use 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; W01.10XA Fall on same level from slipping, tripping and stumbling with subsequent striking against unspecified object, initial encounter; Y92.89 Other specified places as the place of occurrence of the external cause; Z86.73 Personal history of transient ischemic attack (TIA), and cerebral infarction without residual deficits; I25.10 Atherosclerotic heart disease of native coronary artery without angina pectoris; N18.9 Chronic kidney disease, unspecified; E78.5 Hyperlipidemia, unspecified; I25.2 Old myocardial infarction; Z79.899 Other long term (current) drug therapy; Z95.5 Presence of coronary angioplasty implant and graft; Z96.659 Presence of unspecified artificial knee joint; Z96.642 Presence of left artificial hip joint
CPT/HCPCS: 29105; 29405; 70450; 71045; 73080; 80048; 85025; 85610; 93005; 96361; 96374; 96376; 99285; J7030; J7040; A4216

== ENCOUNTER → 2023-06-30 | Outpatient (REF) | payer MEDICARE, SELFPAY ==
[2023-06-30 08:41] LABS: INR Fingerstick 2.4; Prothrombin Time Fingerstick 24.6 SEC (11.7-14.9)
== END ==
PROVIDERS: PCP Family Medicine; Visit Provider Family Medicine
DX: Z79.01 Long term (current) use 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 (principal)
CPT/HCPCS: 36416; 85610

== ENCOUNTER → 2023-07-31 | Outpatient (REF) | payer MEDICARE, SELFPAY ==
[2023-07-31 08:02] LABS: INR Fingerstick 2.1; Prothrombin Time Fingerstick 23.1 SEC (11.7-14.9)
== END ==
PROVIDERS: PCP Family Medicine; Referring Provider Family Medicine; Visit Provider Family Medicine
DX: Z79.01 Long term (current) use 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 (principal)
CPT/HCPCS: 36416; 85610

== ENCOUNTER → 2023-09-01 | Outpatient (REF) | payer MEDICARE, SELFPAY ==
[2023-09-01 06:51] LABS: INR Fingerstick 2.1; Prothrombin Time Fingerstick 21.6 SEC (11.7-14.9)
== END ==
PROVIDERS: PCP Family Medicine; Visit Provider Family Medicine
DX: Z79.01 Long term (current) use 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 (principal)
CPT/HCPCS: 36416; 85610

== ENCOUNTER → 2023-09-22 | Outpatient (CLI) | payer MEDICARE, SELFPAY ==
[2023-09-22 18:32] LABS: AST(SGOT) 20 U/L (15-37); Alanine Aminotransfer ALT/SGPT 14 U/L (13-56); Albumin, Serum 3.5 g/dL (3.2-5.0); Alkaline Phosphatase 105 U/L (45-117); Anion Gap 4 (5-15); BUN 18 mg/dL (7-18); BUN/Creat Ratio 14.9 RATIO (10-20); Calcium,Total 9.2 mg/dL (8.5-10.1); Chloride 106 mmol/L (98-107); Creatinine, Serum 1.21 mg/dL (0.55-1.02); EST Glomerular Filtration Rate 45 mL/min (>60); Est Glom Filt Rate - Afr Amer 54 mL/min (>60); Globulin 3.6 g/dL (2.2-4.2); Glucose 123 mg/dL (74-106); Potassium 5.5 mmol/L (3.5-5.1); Protein, Total 7.1 g/dL (6.4-8.2); Sodium Level 139 mmol/L (136-145)
[2023-09-22 19:50] LABS: Hematocrit 41.1 % (37-47); Hemoglobin 12.9 g/dL (12.0-15.0); Mean Corp Hgb Conc 31.4 g/dL (32-36); Mean Corpuscular Hgb 28.3 pg (27.0-32.0); Mean Corpuscular Volume 90.1 fL (81-99); Mean Platelet Vol. 10.9 fl (6.2-12.0); Platelet Count 402 K/mm3 (150-450); RBC Distribution Width CV 14.4 % (11.6-14.6); RBC Distribution Width SD 47.4 fl (35.1-43.9); Red Blood Count 4.56 M/mm3 (4.2-5.4); White Blood Count 8.5 K/mm3 (4.4-11.0)
== END | disposition home or self-care (01) ==
PROVIDERS: PCP Family Medicine; Referring Provider Psychiatry & Neurology Neurology; Visit Provider Psychiatry & Neurology Neurology
DX: G40.909 Epilepsy, unspecified, not intractable, without status epilepticus (principal)
CPT/HCPCS: 36415; 80053; 82140; 82542; 85027

== ENCOUNTER → 2023-10-10 | Outpatient (REF) | payer MEDICARE, SELFPAY ==
[2023-10-10 08:44] LABS: INR Fingerstick 1.8; Prothrombin Time Fingerstick 19.4 SEC (11.7-14.9)
== END ==
PROVIDERS: PCP Family Medicine; Referring Provider Family Medicine; Visit Provider Family Medicine
DX: Z79.01 Long term (current) use 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 (principal)
CPT/HCPCS: 36416; 85610

== ENCOUNTER → 2023-10-15 | Outpatient (REF) | payer MEDICARE, SELFPAY ==
[2023-10-15 08:04] LABS: Prothrombin Time Fingerstick 20.7 SEC (11.7-14.9)
== END ==
PROVIDERS: PCP Family Medicine; Visit Provider Family Medicine
DX: Z79.01 Long term (current) use 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 (principal)
CPT/HCPCS: 36416; 85610

== ENCOUNTER → 2023-10-21 | Outpatient (REF) | payer MEDICARE, SELFPAY ==
[2023-10-21 10:28] LABS: INR Fingerstick 1.9; Prothrombin Time Fingerstick 20.5 SEC (11.7-14.9)
== END ==
PROVIDERS: PCP Family Medicine; Referring Provider Family Medicine; Visit Provider Family Medicine
DX: Z79.01 Long term (current) use 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 (principal)
CPT/HCPCS: 36416; 85610

== ENCOUNTER → 2023-10-24 | Outpatient (REF) | payer MEDICARE, SELFPAY ==
[2023-10-24 06:39] LABS: INR Fingerstick 1.9; Prothrombin Time Fingerstick 20.4 SEC (11.7-14.9)
== END ==
PROVIDERS: PCP Family Medicine; Visit Provider Family Medicine
DX: Z79.01 Long term (current) use 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 (principal)
CPT/HCPCS: 36416; 85610

== ENCOUNTER → 2023-10-28 | Outpatient (REF) | payer MEDICARE, SELFPAY ==
[2023-10-28 12:29] LABS: INR Fingerstick 2.1
== END ==
PROVIDERS: PCP Family Medicine; Visit Provider Family Medicine
DX: Z79.01 Long term (current) use 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 (principal)
CPT/HCPCS: 36416; 85610

== ENCOUNTER → 2023-11-04 | Outpatient (REF) | payer MEDICARE, SELFPAY ==
[2023-11-04 11:18] LABS: International Normalized Ratio 2.1; Prothrombin Time (Protime)PT. 23.3 SECONDS (11.7-14.9)
== END ==
PROVIDERS: PCP Family Medicine; Visit Provider Family Medicine
DX: Z79.01 Long term (current) use 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 (principal)
CPT/HCPCS: 36415; 85610

== ENCOUNTER → 2023-11-05 | Outpatient (REF) | payer MEDICARE, SELFPAY ==
[2023-11-05 08:44] LABS: Prothrombin Time (Protime)PT. 22.8 SECONDS (11.7-14.9)
== END ==
PROVIDERS: PCP Family Medicine; Visit Provider Family Medicine
DX: Z79.01 Long term (current) use 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 (principal)
CPT/HCPCS: 36415; 85610

== ENCOUNTER → 2023-11-20 10:00 | Outpatient (REF) | payer MEDICARE, SELFPAY ==
[2023-11-20 11:44] LABS: INR Fingerstick 2.2; Prothrombin Time Fingerstick 22.9 SEC (11.7-14.9)
== END ==
PROVIDERS: PCP Family Medicine; Visit Provider Family Medicine
DX: Z79.01 Long term (current) use 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 (principal)
CPT/HCPCS: 36416; 85610

== ENCOUNTER → 2023-12-18 | Outpatient (REF) | payer MEDICARE, SELFPAY ==
[2023-12-18 16:19] LABS: INR Fingerstick 1.7; Prothrombin Time Fingerstick 18.5 SEC (11.7-14.9)
== END ==
PROVIDERS: PCP Family Medicine; Visit Provider Family Medicine
DX: Z79.01 Long term (current) use 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 (principal)
CPT/HCPCS: 36416; 85610

== ENCOUNTER → 2023-12-19 | Outpatient (REF) | payer MEDICARE, SELFPAY ==
[2023-12-19 08:06] LABS: INR Fingerstick 2.3; Prothrombin Time Fingerstick 23.4 SEC (11.7-14.9)
== END ==
PROVIDERS: PCP Family Medicine; Visit Provider Family Medicine
DX: Z79.01 Long term (current) use 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 (principal)
CPT/HCPCS: 36416; 85610

== ENCOUNTER → 2023-12-26 | Outpatient (REF) | payer MEDICARE, SELFPAY ==
[2023-12-26 09:19] LABS: INR Fingerstick 2.4; Prothrombin Time Fingerstick 24.4 SEC (11.7-14.9)
== END ==
PROVIDERS: PCP Family Medicine; Visit Provider Family Medicine
DX: Z79.01 Long term (current) use 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 (principal)
CPT/HCPCS: 36416; 85610

== ENCOUNTER → 2024-01-08 | Outpatient (REF) | payer MEDICARE, SELFPAY ==
[2024-01-08 08:19] LABS: Hemoglobin 12.2 g/dL (12.0-15.0); Mean Corp Hgb Conc 32.1 g/dL (32-36); Mean Corpuscular Hgb 28.7 pg (27.0-32.0); Mean Corpuscular Volume 89.4 fL (81-99); Mean Platelet Vol. 10.4 fl (6.2-12.0); Platelet Count 319 K/mm3 (150-450); RBC Distribution Width CV 14.2 % (11.6-14.6); RBC Distribution Width SD 45.9 fl (35.1-43.9); Red Blood Count 4.25 M/mm3 (4.2-5.4); White Blood Count 7.5 K/mm3 (4.4-11.0)
[2024-01-08 08:32] LABS: Prothrombin Time (Protime)PT. 22.4 SECONDS (11.7-14.9)
[2024-01-08 08:39] LABS: Ferritin 68 ng/mL (8-252)
== END ==
PROVIDERS: PCP Family Medicine; Visit Provider Family Medicine
DX: I48.20 Chronic atrial fibrillation, unspecified (principal); I10 Essential (primary) hypertension; Z79.899 Other long term (current) drug therapy; Z79.01 Long term (current) use 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
CPT/HCPCS: 36415; 82728; 85027; 85610

== ENCOUNTER → 2024-02-05 | Outpatient (REF) | payer MEDICARE, SELFPAY ==
[2024-02-05 07:51] LABS: INR Fingerstick 2.2; Prothrombin Time Fingerstick 22.8 SEC (11.7-14.9)
== END ==
PROVIDERS: PCP Family Medicine; Visit Provider Family Medicine
DX: Z79.01 Long term (current) use 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 (principal)
CPT/HCPCS: 36416; 85610

== ENCOUNTER → 2024-03-04 05:00 | Outpatient (REF) | payer MEDICARE, SELFPAY ==
[2024-03-04 08:34] LABS: INR Fingerstick 1.8; Prothrombin Time Fingerstick 20.2 SEC (11.7-14.9)
== END ==
PROVIDERS: PCP Family Medicine; Visit Provider Family Medicine
DX: Z79.01 Long term (current) use 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 (principal)
CPT/HCPCS: 36416; 85610

== ENCOUNTER → 2024-03-08 05:00 | Outpatient (REF) | payer MEDICARE, SELFPAY ==
[2024-03-08 08:43] LABS: International Normalized Ratio 1.8; Prothrombin Time (Protime)PT. 21.1 SECONDS (11.7-14.9)
== END ==
PROVIDERS: PCP Family Medicine; Visit Provider Family Medicine
DX: Z79.01 Long term (current) use 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 (principal)
CPT/HCPCS: 36415; 85610

== ENCOUNTER → 2024-03-10 04:00 | Outpatient (REF) | payer MEDICARE, SELFPAY ==
[2024-03-10 08:01] LABS: INR Fingerstick 2.4; Prothrombin Time Fingerstick 25.4 SEC (11.7-14.9)
== END ==
PROVIDERS: PCP Family Medicine; Referring Provider Family Medicine; Visit Provider Family Medicine
DX: Z79.01 Long term (current) use 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 (principal)
CPT/HCPCS: 36416; 85610

== ENCOUNTER → 2024-03-17 05:00 | Outpatient (REF) | payer MEDICARE, SELFPAY ==
[2024-03-17 06:30] LABS: INR Fingerstick 3.3; Prothrombin Time Fingerstick 34.2 SEC (11.7-14.9)
== END ==
PROVIDERS: PCP Family Medicine; Visit Provider Family Medicine
DX: Z79.01 Long term (current) use 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 (principal)
CPT/HCPCS: 36416; 85610

== ENCOUNTER → 2024-03-19 05:00 | Outpatient (REF) | payer MEDICARE, SELFPAY ==
[2024-03-19 08:23] LABS: Prothrombin Time (Protime)PT. 30.7 SECONDS (11.7-14.9)
== END ==
PROVIDERS: PCP Family Medicine; Visit Provider Family Medicine
DX: Z79.01 Long term (current) use 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 (principal)
CPT/HCPCS: 36415; 85610

== ENCOUNTER → 2024-03-25 05:00 | Outpatient (REF) | payer MEDICARE, SELFPAY ==
[2024-03-25 06:33] LABS: INR Fingerstick 3.8; Prothrombin Time Fingerstick 37.8 SEC (11.7-14.9)
== END ==
PROVIDERS: PCP Family Medicine; Visit Provider Family Medicine
DX: Z79.01 Long term (current) use 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 (principal)
CPT/HCPCS: 36416; 85610

== ENCOUNTER → 2024-03-26 05:00 | Outpatient (REF) | payer MEDICARE, SELFPAY ==
[2024-03-26 07:26] LABS: INR Fingerstick 3.4; Prothrombin Time Fingerstick 34.4 SEC (11.7-14.9)
== END ==
PROVIDERS: PCP Family Medicine; Visit Provider Family Medicine
DX: Z79.01 Long term (current) use 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 (principal)
CPT/HCPCS: 36416; 85610

== ENCOUNTER → 2024-03-29 05:00 | Outpatient (REF) | payer MEDICARE, SELFPAY ==
[2024-03-29 09:04] LABS: International Normalized Ratio 1.5; Prothrombin Time (Protime)PT. 17.9 SECONDS (11.7-14.9)
== END ==
PROVIDERS: PCP Family Medicine; Visit Provider Family Medicine
DX: Z79.01 Long term (current) use 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 (principal)
CPT/HCPCS: 36415; 85610

== ENCOUNTER → 2024-04-05 05:00 | Outpatient (REF) | payer MEDICARE, SELFPAY ==
[2024-04-05 08:46] LABS: INR Fingerstick 3.5; Prothrombin Time Fingerstick 35.4 SEC (11.7-14.9)
== END ==
PROVIDERS: PCP Family Medicine; Visit Provider Family Medicine
DX: Z79.01 Long term (current) use 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 (principal)
CPT/HCPCS: 36416; 85610

== ENCOUNTER → 2024-04-06 | Outpatient (REF) | payer MEDICARE, SELFPAY ==
[2024-04-06 09:47] LABS: International Normalized Ratio 2.6; Prothrombin Time (Protime)PT. 28.8 SECONDS (11.7-14.9)
== END ==
PROVIDERS: PCP Family Medicine; Visit Provider Family Medicine
DX: Z79.01 Long term (current) use 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 (principal)
CPT/HCPCS: 36415; 85610

== ENCOUNTER → 2024-04-09 | Outpatient (REF) | payer MEDICARE, SELFPAY ==
[2024-04-09 08:15] LABS: Anion Gap 3 (5-15); BUN 13 mg/dL (7-18); BUN/Creat Ratio 13.5 RATIO (10-20); Calcium,Total 8.8 mg/dL (8.5-10.1); Chloride 106 mmol/L (98-107); Creatinine, Serum 0.96 mg/dL (0.55-1.02); EST Glomerular Filtration Rate 58 mL/min (>60); Est Glom Filt Rate - Afr Amer 70 mL/min (>60); Glucose 116 mg/dL (74-106); Potassium 4.3 mmol/L (3.5-5.1); Sodium Level 137 mmol/L (136-145)
== END ==
PROVIDERS: PCP Family Medicine; Visit Provider Family Medicine
DX: I10 Essential (primary) hypertension (principal); I48.20 Chronic atrial fibrillation, unspecified; Z79.899 Other long term (current) drug therapy
CPT/HCPCS: 36415; 80048

== ENCOUNTER → 2024-04-14 04:00 | Outpatient (REF) | payer MEDICARE, SELFPAY ==
[2024-04-14 07:21] LABS: Prothrombin Time (Protime)PT. 31.4 SECONDS (11.7-14.9)
== END ==
PROVIDERS: PCP Family Medicine; Referring Provider Family Medicine; Visit Provider Family Medicine
DX: Z79.01 Long term (current) use 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 (principal)
CPT/HCPCS: 36415; 85610

== ENCOUNTER → 2024-04-28 | Outpatient (REF) | payer MEDICARE, SELFPAY ==
[2024-04-28 08:48] LABS: International Normalized Ratio 3.4; Prothrombin Time (Protime)PT. 35.4 SECONDS (11.7-14.9)
== END ==
PROVIDERS: PCP Family Medicine; Visit Provider Family Medicine
DX: Z79.01 Long term (current) use 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 (principal)
CPT/HCPCS: 36415; 85610

== ENCOUNTER → 2024-05-05 | Outpatient (REF) | payer MEDICARE, SELFPAY ==
[2024-05-05 06:16] LABS: INR Fingerstick 2.5; Prothrombin Time Fingerstick 26.9 SEC (11.7-14.9)
== END ==
PROVIDERS: PCP Family Medicine; Visit Provider Internal Medicine Cardiovascular Disease
DX: Z79.01 Long term (current) use 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 (principal)
CPT/HCPCS: 36416; 85610

== ENCOUNTER → 2024-05-12 05:00 | Outpatient (REF) | payer MEDICARE, SELFPAY ==
[2024-05-14 16:09] LABS: Lamotrigine (Lamictal) Level 1.8 ug/mL (2.0-20.0)
== END ==
PROVIDERS: PCP Family Medicine; Visit Provider Psychiatry & Neurology Neurology
DX: G40.909 Epilepsy, unspecified, not intractable, without status epilepticus (principal)
CPT/HCPCS: 36415; 82140; 82542

== ENCOUNTER → 2024-05-19 | Outpatient (REF) | payer MEDICARE, SELFPAY ==
[2024-05-19 08:35] LABS: INR Fingerstick 2.9; Prothrombin Time Fingerstick 30.4 SEC (11.7-14.9)
== END ==
PROVIDERS: PCP Family Medicine; Visit Provider Internal Medicine Cardiovascular Disease
DX: I48.91 Unspecified atrial fibrillation (principal); Z79.01 Long term (current) use 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
CPT/HCPCS: 36416; 85610

== ENCOUNTER → 2024-06-09 | Outpatient (REF) | payer MEDICARE, SELFPAY ==
[2024-06-09 07:49] LABS: Absolute Lymphocyte Count 2.06 X10^3/uL (0.83-4.51); Absolute Neutrophil Count 5.6 X10^3/uL (2.0-7.7); Basophil# 0.05 X10^3/uL; Basophil% 0.6 % (0-1); Eosinophil# 0.43 X10^3/uL; Eosinophils% 4.8 % (0-5); Hematocrit 38.3 % (37-47); Hemoglobin 12.4 g/dL (12.0-15.0); Lymphocyte # 2.06 X10^3/ul (0.83-4.51); Mean Corp Hgb Conc 32.4 g/dL (32-36); Mean Corpuscular Hgb 29.7 pg (27.0-32.0); Mean Corpuscular Volume 91.8 fL (81-99); Mean Platelet Vol. 10.2 fl (6.2-12.0); Monocyte# 0.77 X10^3/uL; Monocyte% 8.6 % (0-10); NRBC Flagged by Analyzer 0 % (0-5); Neutrophil # 5.64 X10^3/uL (2.7-7.7); Neutrophil % 62.8 % (47-70); Platelet Count 323 K/mm3 (150-450); RBC Distribution Width CV 14.6 % (11.6-14.6); RBC Distribution Width SD 49.2 fl (35.1-43.9); Red Blood Count 4.17 M/mm3 (4.2-5.4)
[2024-06-09 08:10] LABS: Anion Gap 13 (5-15); BUN 20 mg/dL (4-19); BUN/Creat Ratio 21.5 RATIO (10-20); Calcium,Total 8.9 mg/dL (7.6-11.0); Carbon Dioxide 22.4 mmol/L (21.0-32.0); Chloride 108 mmol/L (98-108); Creatinine, Serum 0.94 mg/dL (0.70-1.20); EST Glomerular Filtration Rate 59 (>60); Glucose 137 mg/dL (70-99); Potassium 4.7 mmol/L (3.3-5.1); Sodium Level 143 mmol/L (133-145)
[2024-06-09 08:19] LABS: Hemoglobin A1c 6.5 % (<=5.6)
== END ==
PROVIDERS: PCP Family Medicine; Visit Provider Family Medicine
DX: I25.10 Atherosclerotic heart disease of native coronary artery without angina pectoris (principal); I10 Essential (primary) hypertension; E78.5 Hyperlipidemia, unspecified; Z79.899 Other long term (current) drug therapy
CPT/HCPCS: 36415; 80048; 83036; 85025

== ENCOUNTER → 2024-06-16 | Outpatient (REF) | payer MEDICARE, SELFPAY ==
[2024-06-16 09:29] LABS: International Normalized Ratio 2.4; Prothrombin Time (Protime)PT. 26.6 SECONDS (11.7-14.9)
== END ==
PROVIDERS: PCP Family Medicine; Visit Provider Family Medicine
DX: Z79.01 Long term (current) use 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 (principal)
CPT/HCPCS: 36415; 85610

== ENCOUNTER → 2024-07-19 | Outpatient (REF) | payer MEDICARE, SELFPAY ==
[2024-07-19 09:46] LABS: International Normalized Ratio 2.2; Prothrombin Time (Protime)PT. 25.3 SECONDS (11.7-14.9)
== END ==
PROVIDERS: PCP Family Medicine; Referring Provider Internal Medicine Cardiovascular Disease; Visit Provider Internal Medicine Cardiovascular Disease
DX: Z79.01 Long term (current) use 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 (principal)
CPT/HCPCS: 36415; 85610

== ENCOUNTER → 2024-08-18 | Outpatient (REF) | payer MEDICARE, SELFPAY ==
[2024-08-18 07:04] LABS: International Normalized Ratio 2.6; Prothrombin Time (Protime)PT. 28.1 SECONDS (11.7-14.9)
== END ==
PROVIDERS: PCP Family Medicine; Visit Provider Internal Medicine Cardiovascular Disease
DX: Z79.01 Long term (current) use 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 (principal)
CPT/HCPCS: 36415; 85610

== ENCOUNTER 2024-09-08 12:20 | Emergency (ER) | payer MEDICARE, SELFPAY ==
[2024-09-08 12:22] VITALS: BP 131/70; PULSE 74; RESP 24; TEMP 36.7; O2SAT 98; BMI 33.5
[2024-09-08 13:52] LABS: Absolute Lymphocyte Count 2.21 X10^3/uL (0.83-4.51); Absolute Neutrophil Count 10.3 X10^3/uL (2.0-7.7); Basophil# 0.03 X10^3/uL; Basophil% 0.2 % (0-1); Eosinophil# 0.09 X10^3/uL; Eosinophils% 0.7 % (0-5); Hematocrit 41.4 % (37-47); Hemoglobin 13.8 g/dL (12.0-15.0); Lymphocyte # 2.21 X10^3/ul (0.83-4.51); Lymphocyte % 16.2 % (19-41); Mean Corp Hgb Conc 33.3 g/dL (32-36); Mean Corpuscular Hgb 31.4 pg (27.0-32.0); Mean Corpuscular Volume 94.1 fL (81-99); Mean Platelet Vol. 10.8 fl (6.2-12.0); Monocyte% 6.6 % (0-10); NRBC Flagged by Analyzer 0 % (0-5); Neutrophil # 10.34 X10^3/uL (2.7-7.7); Neutrophil % 75.9 % (47-70); Platelet Count 326 K/mm3 (150-450); RBC Distribution Width CV 13.2 % (11.6-14.6); RBC Distribution Width SD 45.2 fl (35.1-43.9); White Blood Count 13.6 K/mm3 (4.4-11.0)
[2024-09-08 14:00] VITALS: PULSE 63; RESP 17; O2SAT 98
[2024-09-08 14:02] LABS: International Normalized Ratio 2.9; Prothrombin Time (Protime)PT. 30.7 SECONDS (11.7-14.9)
--- NOTE | 2024-09-08 14:48 | EX.ED.DYSGE1 ---
HPI History of Present Illness Chief Complaint: Seizure Detail of Chief Complaint: Patient presents after generalized tonic-clonic seizure. Informant: patient, EMS and SNF Onset/Context/Timing Onset: Today Context: Sudden Onset Timing: Intermittent (Reported duration 10 minutes) Quality: Generalized tonic-clonic seizure Location: Patient facility Current Severity: Gone Maximum Severity: Severe Worsened by: patient reports compliance with her Lamictal. She not had a seizure great Relieved by: Not applicable Associated Symptoms Associated Symptoms: None Narrative Narrative: Patient is a 89-year-old woman who does have history of mild dementia. She is followed by Dr. Anant Becerril. His most recent office note was reviewed. Her mini mental status exam improved after she was placed on medicine for dementia. She scored 30 out of 30. Her Lamictal dose has not been changed. She has a known seizure disorder. Patient is on no medicines that have mew that may lower seizure threshold. Her med list that accompanies her from the nursing facility was reviewed. Presently patient denies headache. Denies double vision blurry vision loss of vision. Rhinorrhea decreased hearing. No trouble speech or swallowing. She denies chest pain shortness of breath. She denies nausea, vomit or diarrhea. She denies paresthesia, anesthesia Medicus. She does have problems with balance which is multifactorial according to Dr. Becerril office note. Patient has no infectious symptoms. 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) Persistent atrial fibrillation Chronic kidney disease (CKD) Spinal stenosis Osteoarthritis Atherosclerotic heart disease of [place] coronary artery without angina pectoris Type 2 diabetes mellitus Essential (primary) hypertension Hyperlipidemia Obesity Pleural effusion on right (09/2019) Paroxysmal atrial fibrillation Home Medications ?Medication ?Instructions ?Recorded ?Last Taken ?Type multivitamin 1 cap PO DAILY 12/10/19 12/27/22 History omeprazole 20 mg capsule,delayed 20 mg PO DAILY reflux 11/14/22 12/27/22 History release atorvastatin 40 mg tablet 40 mg PO QHS 10/23/23 Unknown History ascorbic acid (vitamin C) 250 mg 250 mg PO DAILY 05/19/23 Unknown History tablet diphenhydramine HCl 25 mg tablet 25 mg PO QHS PRN allergy symptoms 05/19/23 Unknown History (Allergy (diphenhydramine)) warfarin 2.5 mg tablet 2.5 mg PO .QTUWEFR #90 tabs 04/30/24 Unknown Rx warfarin 3 mg tablet 3 mg PO .QMOTHSASU #90 tabs 04/30/24 Unknown Rx donepezil 10 mg tablet 10 mg PO QHS #30 tabs 05/10/24 Unknown Rx lamotrigine 25 mg tablet 50 mg (2 x 25 mg) PO BID #120 tabs 05/10/24 Unknown Rx amlodipine 10 mg tablet 10 mg PO QDAY #90 tabs 07/01/24 Unknown Rx acetaminophen 650 mg 650 mg PO Q8H 09/08/24 Unknown History tablet,extended release (Tylenol Arthritis Pain) irbesartan 300 mg tablet 300 mg PO DAILY 09/08/24 Unknown History metoprolol succinate 50 mg 50 mg PO DAILY 09/08/24 Unknown History tablet,extended release 24 hr Allergy/AdvReac Type Severity Reaction Status Date / Time latex Allergy rash Verified 09/08/24 12:25 amiodarone AdvReac Severe Hair Verified 09/08/24 12:25 falling out in gobs atorvastatin (From Lipitor) AdvReac myalgia Verified 09/08/24 12:25 codeine AdvReac Nausea Verified 09/08/24 12:25 meperidine (From Demerol) AdvReac Nausea/Vom/ Verified 09/08/24 12:25 Diarrhea rosuvastatin (From Crestor) AdvReac myalgia Verified 09/08/24 12:25 Family History Father CAD (coronary artery disease) Brother CAD (coronary artery disease) Surgical History History of kyphoplasty (~05/2020) History of left heart catheterization (12/27/19) History of left hip replacement History of repair of rotator cuff History of knee replacement History of coronary artery stent placement (02/14/07) History of radiofrequency ablation procedure for cardiac arrhythmia (2011) Social History housing: assisted living facility Smoking Status: Former smoker how long ago did patient quit smokin years ago alcohol intake: former substance use type: does not use caffeine: No ROS ROS ED Constitutional Constitutional ED: Denies chills, fever(s), subjective or sweats Eyes Eyes: Denies blurry vision, change in vision or diplopia ENT ENT ED: Denies ear pain, rhinorrhea or sore throat Cardiovascular Cardiovascular: Denies chest pain, palpitations or racing heartbeat Respiratory/Chest Respiratory/Chest: Denies cough, dyspnea or dyspnea on exertion Gastrointestinal Gastrointestinal: Denies abdominal pain, nausea or vomiting Genitourinary Genitourinary ED: Denies dysuria, hematuria or urinary frequency Musculoskeletal Musculoskeletal: Denies arthralgias, myalgias or neck pain Integumentary Denies rash Neurologic Neurologic: Denies weakness Psychiatric Psychiatric: Denies anxiety or depression Endocrine Endocrinology: Denies cold intolerance or heat intolerance Hematologic/Lymphatic Hematologic/Lymphatic: Denies systems reviewed and no addt'l complaints, except as documented EXAM Physical Exam Const Vital Signs: 09/08/24 12:22 09/08/24 14:00 Temperature 98.0 F Temperature Source Oral Pulse Rate 74 63 Respiratory Rate 24 H 17 Blood Pressure 131/70 H Blood Pressure Mean 90 Pulse Ox 98 98 Oxygen Delivery Method Room Air Negative for well nourished or well developed General Appearance ED: NAD; Negative for well developed, cyanotic, diaphoretic or pallor HEENT Reports TM's clear; Denies moist mucous membranes or dry mucous membranes Tympanic Membrane ED: Yes TM's clear Mouth ED: No dry mucous membranes Mouth: No dry mucous membranes Eyes PERRL and EOMs intact bilaterally Neck no lymphadenopathy, supple and no JVD Chest Wall inspection of chest normal and palpation of chest normal Resp normal respiratory effort and clear to auscultation bilaterally Cardio regular rate, S1 normal heart sound, S2 normal heart sound and no murmurs Rhythm: abnormal rhythm irregularly irregular (History of atrial fibrillation on Coumadin.) GI normal to inspection, nondistended, normoactive bowel sounds, non-tender, non-distended and no masses; Negative for hepatosplenomegaly Back/Spine no CVA tenderness Extremity Negative for normal to inspection Extremity Narrative: Patient has numerous bruises. She states she bruises easily because she is on Coumadin. Her level has not been assessed recently. Neuro oriented x3, CN's II-XII intact bilaterally and no sensory deficits noted Neuro Narrative: There is no clonus or Babinski sign. There is no dysmetria. Sensorium / Orientation: alert Motor Exam: strength 5/5 throughout Psych mental status grossly normal Skin no rashes or lesions noted, no wounds and skin turgor normal Skin Narrative: Bruises noted extremities. General Skin Exam: Negative for jaundice or pallor MDM MDM MDM Narrative Medical decision making narrative: Will obtain CBC to assess for any significant shift or bandemia. BMP to assess electrolytes and specifically sodium and calcium. Lamictal level was ordered. This is a send out. INR was ordered as well since she is on Coumadin. Prior records and labs were documented in the HPI narrative. History & Record Review Additional record(s) reviewed:: Prior outpatient record, Prior ED visit and Prior labs Lab Data Attestation: I reviewed the patient's lab results. Lab results narrative: CBC is slightly elevated 13.6 thousand with mild shift. This is due to the seizure with demargination. PT/INR is therapeutic. Basic metabolic panel reveals an elevated BUN to creatinine ratio of 35:1. Glucose is slight elevated 149 with a normal CO2 anion gap. Labs: Laboratory Results - last 24 hr 09/08/24 12:50 WBC 13.6 H RBC 4.40 Hgb 13.8 Hct 41.4 MCV 94.1 MCH 31.4 MCHC 33.3 RDW Std Deviation 45.2 H RDW Coeff of Sumeet 13.2 Plt Count 326 MPV 10.8 Immature Gran % (Auto) 0.400 Neut % (Auto) 75.9 H Lymph % (Auto) 16.2 L [place] % (Auto) 6.6 Eos % (Auto) 0.7 Baso % (Auto) 0.2 Absolute Neuts (auto) 10.3 H Absolute Lymphs (auto) 2.21 Nucleated RBC % 0 PT 30.7 H INR 2.9 Sodium 138 Potassium 4.7 Chloride 105 Carbon Dioxide 22.4 Anion Gap 11 BUN 35 H Creatinine 1.00 Estim Creat Clear Calc 39.57 L Est GFR (MDRD) Non-Af 54 L BUN/Creatinine Ratio 35.2 H Glucose 149 H Calcium 8.9 Treatment and Re-Evaluation :: Suspect patient had a breakthrough seizure. Lamictal is a send out. Dose was not adjusted since the level is not known. This will need to be followed up by the nursing staff and her neurologist. Discharge Plan Triage Chief Complaint: Seizure ED Provider: Anoop Blackmon Dx/Rx/DC Orders Clinical Impression: Breakthrough seizure, Anticoagulant long-term use, Polyneuropathy, Hyperlipidemia, Essential (primary) hypertension, Atrial fibrillation, chronic Instructions: ED Seizure, Recurrent (Adult) Prescriptions: No Action multivitamin Capsule 1 cap PO DAILY atorvastatin 40 mg tablet 40 mg PO QHS ascorbic acid (vitamin C) 250 mg tablet 250 mg PO DAILY diphenhydramine HCl [Allergy (diphenhydramine)] 25 mg tablet 25 mg PO QHS PRN (Reason: allergy symptoms) amlodipine 10 mg tablet 10 mg PO QDAY Qty: 90 3RF donepezil 10 mg tablet 10 mg PO QHS Qty: 30 9RF lamotrigine 25 mg tablet 50 mg PO BID Qty: 120 9RF omeprazole 20 mg capsule,delayed release(DR/EC) 20 mg PO DAILY irbesartan 300 mg tablet 300 mg PO DAILY acetaminophen [Tylenol Arthritis Pain] 650 mg tablet extended release 650 mg PO Q8H metoprolol succinate 50 mg tablet extended release 24 hr 50 mg PO DAILY warfarin 2.5 mg tablet 2.5 mg PO .QTUWEFR Qty: 90 3RF Protocol: Dose Management Condition: Friday Dose/Route: 3 mg Instruction: 1 x 3 mg tablet Condition: Friday Dose/Route: 3 mg Instruction: 1 x 3 mg tablet Condition: Friday Dose/Route: 2.5 mg Instruction: 1 x 2.5 mg tablet Condition: Friday Dose/Route: 2.5 mg Instruction: 1 x 2.5 mg tablet Condition: Dose/Route: 3 mg Instruction: 1 x 3 mg tablet Condition: Friday Dose/Route: 2.5 mg Instruction: 1 x 2.5 mg tablet Condition: Friday Dose/Route: 3 mg Instruction: 1 x 3 mg tablet Protocol Text: Adjustment Start Date: Friday07/19/24 INR Value: 2.2 INR Date: 07/19/24 Recheck Date: 08/18/24 Rx Instructions: or as directed warfarin 3 mg tablet 3 mg PO .QMOTHSASU Qty: 90 3RF Protocol: Dose Management Condition: Friday Dose/Route: 3 mg Instruction: 1 x 3 mg tablet Condition: Friday Dose/Route: 3 mg Instruction: 1 x 3 mg tablet Condition: Friday Dose/Route: 2.5 mg Instruction: 1 x 2.5 mg tablet Condition: Friday Dose/Route: 2.5 mg Instruction: 1 x 2.5 mg tablet Condition: Dose/Route: 3 mg Instruction: 1 x 3 mg tablet Condition: Friday Dose/Route: 2.5 mg Instruction: 1 x 2.5 mg tablet Condition: Friday Dose/Route: 3 mg Instruction: 1 x 3 mg tablet Protocol Text: Adjustment Start Date: Friday07/19/24 INR Value: 2.2 INR Date: 07/19/24 Recheck Date: 08/18/24 Rx Instructions: or as directed Primary Care Provider: Chucky Ochoa Referrals: Anant Becerril MD [Non-Staff -Ordering Privileges] - 3-5 Days Chucky Ochoa MD [Primary Care Provider] - As Needed Activity Restrictions/Additional Instructions: Will need to follow-up Lamictal level since it is a send out. Recommend follow-up appointment with her neurologist Dr. Becerril Print Language: [place] Disposition Disposition: Home, Self Care
[2024-09-08 15:00] VITALS: PULSE 64; RESP 23; O2SAT 97
[2024-09-08 15:08] LABS: Anion Gap 11 (5-15); BUN 35 mg/dL (4-19); BUN/Creat Ratio 35.2 RATIO (10-20); Calcium,Total 8.9 mg/dL (7.6-11.0); Carbon Dioxide 22.4 mmol/L (21.0-32.0); Chloride 105 mmol/L (98-108); EST Glomerular Filtration Rate 54 (>60); Estimated Creatinine Clearance 39.57 ml/min (50-250); Glucose 149 mg/dL (70-99); Potassium 4.7 mmol/L (3.3-5.1); Sodium Level 138 mmol/L (133-145)
[2024-09-08 15:30] VITALS: PULSE 64; RESP 23; O2SAT 97
[2024-09-12 17:07] LABS: Lamotrigine (Lamictal) Level 1.2 ug/mL (2.0-20.0)
== END 2024-09-08 15:50 | disposition home or self-care (01) ==
PROVIDERS: Emergency Provider Emergency Medicine; PCP Family Medicine; Referring Provider Emergency Medicine; Visit Provider Emergency Medicine
DX: G40.409 Other generalized epilepsy and epileptic syndromes, not intractable, without status epilepticus (principal); I13.0 Hypertensive heart and chronic kidney disease with heart failure and stage 1 through stage 4 chronic kidney disease, or unspecified chronic kidney disease; I50.32 Chronic diastolic (congestive) heart failure; F03.A0 Unspecified dementia, mild, without behavioral disturbance, psychotic disturbance, mood disturbance, and anxiety; I48.20 Chronic atrial fibrillation, unspecified; E11.22 Type 2 diabetes mellitus with diabetic chronic kidney disease; E11.42 Type 2 diabetes mellitus with diabetic polyneuropathy; E11.65 Type 2 diabetes mellitus with hyperglycemia; I25.10 Atherosclerotic heart disease of native coronary artery without angina pectoris; N18.9 Chronic kidney disease, unspecified; E78.5 Hyperlipidemia, unspecified; Z79.01 Long term (current) use 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; Z79.899 Other long term (current) drug therapy; Z87.891 Personal history of nicotine dependence; I25.2 Old myocardial infarction; Z95.5 Presence of coronary angioplasty implant and graft
CPT/HCPCS: 80048; 82542; 85025; 85610; 99285

== ENCOUNTER 2024-09-10 13:48 | Observation (INO) | payer MEDICARE, SELFPAY ==
[2024-09-10] VITALS (14 sets, daily range): BP systolic 75–194; BP diastolic 53–103; PULSE 69–83; RESP 16–22; TEMP 36.6–37; O2SAT 93–99; BMI 26.5; BMI 30.3
--- NOTE | 2024-09-10 13:55 | CT_ITS ---
PROCEDURE: STROKE CTA HEAD AND NECK W/CON 09/10/2024 REASON FOR EXAM: NEURO DEFICIT, ACUTE, STROKE SUSPECTED TECHNIQUE: CTA imaging of the head and neck from the aortic arch to the skull vertex with out contrast and with intravenous contrast. Multiplanar and multisequence images were obtained. CONTRAST: Isovue 370 VOLUME: 100 mL One or more dose reduction techniques were used (e.g., Automated exposure control, adjustment of the mA and/or kV according to patient size, use of iterative reconstruction technique). RADIATION DOSE SUMMARY: CTDlvol: 27 mGy DLP: 694 mGycm COMPARISON: Prior CT scan of the brain done earlier in the day prior CTA of the brain and neck dated December 27, 2022. FINDINGS: Aortic Arch: Normal size and branching pattern. Mild atherosclerotic plaque. Brachiocephalic and Subclavians: Mild atherosclerotic plaque without significant stenosis. RIGHT Carotid: Right CCA: Unremarkable. Right ICA: Moderate calcified and soft plaque. Maximum stenosis (NASCET): 60 % Right ECA: Unremarkable. LEFT Carotid: Left CCA: Unremarkable. Left ICA: Moderate calcified and soft plaque. Maximum stenosis (NASCET): 60 % Left ECA: Unremarkable. Vertebrals: Codominant. Arise from the subclavians. Both vertebrals form the basilar. RIGHT Vertebral: Unremarkable. LEFT Vertebral: Unremarkable. Anatomy: [place] of [place] anatomy is normal. Aneurysm or avm: No intracranial aneurysms or large vascular malformations are identified. Anterior cerebral arteries: Unremarkable: Middle cerebral arteries: Unremarkable. Basilar artery: Unremarkable. Posterior cerebral arteries: There is diffuse narrowing of the left posterior cerebral artery in the distal branching structures. Other major branches of the posterior circulation: Unremarkable. Major venous structures: Unremarkable. Other findings: Neck: Lungs: Bones: CT/STROKE CTA Head AND Neck W/Con IMPRESSION: Calcific plaque at the origin of the right and left internal carotid arteries c ausing 60% stenosis. Diffuse narrowing of the left posterior cerebral artery as well as the distal b ranches. Red Alert: Narrowing of Left Pos this is unchanged. The critical information above was relayed directly by me by telephone to Teri Flores on 09/10/2024 at 3:01 pm with readback verification. Reading Location: [id number]
--- NOTE | 2024-09-10 13:55 | CT_ITS ---
PROCEDURE: STROKE BRAIN/HEAD WITHOUT CONT 09/10/2024 REASON FOR EXAM: NEURO DEFICIT, ACUTE, STROKE SUSPECTED TECHNIQUE: Head CT without intravenous contrast. Coronal and Sagittal reconstruction series were provided. One or more dose reduction techniques were used (e.g., Automated exposure control, adjustment of the mA and/or kV according to patient size, use of iterative reconstruction technique. RADIATION DOSE SUMMARY: CTDlvol: 44.99 mGy DLP: 779.24 mGycm COMPARISON: Prior study dated June 16, 2023. FINDINGS: Brain: Low density in the periventricular white matter suggests mild chronic small vessel ischemic changes. Atherosclerotic calcification of the vertebral arteries and cavernous portions of the internal carotid arteries bilaterally. CSF Spaces: Moderate generalized cerebral atrophy Sinuses/Mastoids: Clear at visualized levels Bones: Unremarkable CT/STROKE Brain/Head without Cont IMPRESSION: CHRONIC CHANGES. NO ACUTE FINDINGS. Red Alert: Chronic changes. The critical information above was relayed directly by me by telephone to Teri Flores on 09/10/2024 at 2:05 pm with readback verification. Reading Location: [id number]
[2024-09-10 14:56] LABS: Absolute Lymphocyte Count 1.91 X10^3/uL (0.83-4.51); Absolute Neutrophil Count 8.3 X10^3/uL (2.0-7.7); Basophil# 0.05 X10^3/uL; Basophil% 0.4 % (0-1); Eosinophil# 0.14 X10^3/uL; Eosinophils% 1.2 % (0-5); Hematocrit 41.7 % (37-47); Hemoglobin 13.6 g/dL (12.0-15.0); Lymphocyte # 1.91 X10^3/ul (0.83-4.51); Lymphocyte % 16.6 % (19-41); Mean Corp Hgb Conc 32.6 g/dL (32-36); Mean Corpuscular Hgb 30.6 pg (27.0-32.0); Mean Corpuscular Volume 93.9 fL (81-99); Mean Platelet Vol. 10.4 fl (6.2-12.0); Monocyte# 1.05 X10^3/uL; Monocyte% 9.1 % (0-10); NRBC Flagged by Analyzer 0 % (0-5); Neutrophil # 8.33 X10^3/uL (2.7-7.7); Neutrophil % 72.3 % (47-70); Platelet Count 269 K/mm3 (150-450); RBC Distribution Width CV 13.2 % (11.6-14.6); RBC Distribution Width SD 45.4 fl (35.1-43.9); Red Blood Count 4.44 M/mm3 (4.2-5.4); White Blood Count 11.5 K/mm3 (4.4-11.0)
[2024-09-10 15:06] LABS: Mucous, Urine 0 SEEN /hpf (<or=2+); Red Blood Cells-Urine 0 SEEN /hpf (0-5)
[2024-09-10 15:10] LABS: Color, Urine Straw (Yellow); Glucose, Dipstick Normal (Normal); Ketone-Dipstick Negative (Negative); Leukocyte Esterase-Dipstick 500 /ul (Negative); Nitrite-Dipstick Negative (Negative); Occult Blood-Urine Negative /ul (Negative); Protein-Dipstick 30 mg/dl (Negative); Urine Bilirubin Dipstick Negative (Negative); Urine Clarity Clear (Clear); Urine Urobilinogen Normal (Normal)
--- NOTE | 2024-09-10 15:11 | CHAPLAIN ---
Type of Pastoral Visit ___ Initial Visit ___ Follow-up Visit ___ On-call Visit ___ General Patient Visit ___ Spiritual Assessment ___ Family Conference ___ Bereavement ___ Rapid Response ___ Code Blue ___ Other (describe below) Pastoral Care Referral From ___ Patient ___ Family ___ Nurse ___ Physician ___ Processing Tech ___ Pipe Assembly Worker ___ Other (describe below) Sacrament/Intervention ___ Active listening ___ Anointing ___ Islam ___ Bereavement ___ Communion ___ Mer exploration ___ ___ Life review ___ Prayer ___ Reconciliation ___ Sacrament of Sick ___ Supportive presence ___ Wedding ___ Other (describe below) Pastoral Comments came to ED to see this patient that had a stroke alert called; pt was taken to CT; no other family members were present at this time; checked in with staff to see what they needed
[2024-09-10 15:14] LABS: International Normalized Ratio 2.4; Partial Thromboplast Time 31.8 Seconds (24.1-36.2); Prothrombin Time (Protime)PT. 26.4 SECONDS (11.7-14.9)
[2024-09-10 15:26] LABS: Bacteria RARE /hpf (None Seen); Squamous Epithelial Cells - UA 0-5 SEEN /hpf (5-10); White Blood Cells 10-25 SEEN /hpf (0-5)
[2024-09-10 15:32] LABS: Troponin T High Sensitivity 18 ng/L (<=14)
[2024-09-10 15:53] LABS: Anion Gap 12 (5-15); BUN 37 mg/dL (4-19); BUN/Creat Ratio 34.8 RATIO (10-20); Calcium,Total 8.7 mg/dL (7.6-11.0); Carbon Dioxide 21.8 mmol/L (21.0-32.0); Chloride 103 mmol/L (98-108); Creatinine, Serum 1.05 mg/dL (0.70-1.20); EST Glomerular Filtration Rate 51 (>60); Estimated Creatinine Clearance 33.63 ml/min (50-250); Glucose 131 mg/dL (70-99); Potassium 4.4 mmol/L (3.3-5.1); Sodium Level 137 mmol/L (133-145)
--- NOTE | 2024-09-10 16:03 | PCM.HP.STD ---
HPI - General General Date of Admission: 09/10/24 Date of Service: 09/10/24 Chief Complaint: Dysarthria HPI Narrative EZRA GONZALEZ, is a 89 F who presented to [facility] ED on 09/10/2024 with dysarthria. Patient lives at assisted living at [place]. Has history of seizures and is on Lamictal. She follows with Dr. Becerril with neurology. Developed acute onset dysarthria today at noon. Has apparently had similar episodes like this in the past and Dr. Becerril suspects that they may be epileptic episodes. Patient's speech returned to normal after about [address] brain was negative. CTA head/neck did show carotid stenosis but this was stable from previous. She notably is on Coumadin for A-fib and atorvastatin for history of CAD with stenting. INR was therapeutic on admission. On discussion with [facility] neurology, recommendation was for admission for MRI brain and routine EEG for further evaluation. Hospitalist was then contacted for admission. I saw the patient at bedside in the ED. She was sitting back comfortably in bed, in no acute distress. She had no dysarthria during our encounter. She does report feeling somewhat frustrated by these episodes and that there has not been a clear reason given for them. She denies any other acute concerns at this time. 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 (02/14/07) Persistent atrial fibrillation Chronic kidney disease (CKD) Spinal stenosis Osteoarthritis Atherosclerotic heart disease of [place] coronary artery without angina pectoris Type 2 diabetes mellitus Essential (primary) hypertension Hyperlipidemia Obesity Pleural effusion on right (09/2019) Paroxysmal atrial fibrillation Home Medications ?Medication ?Instructions ?Recorded ?Last Taken ?Type multivitamin 1 cap PO DAILY 12/10/19 12/27/22 History omeprazole 20 mg capsule,delayed 20 mg PO DAILY reflux 11/14/22 12/27/22 History release atorvastatin 40 mg tablet 40 mg PO QHS 01/20/23 Unknown History ascorbic acid (vitamin C) 250 mg 250 mg PO DAILY 05/19/23 Unknown History tablet diphenhydramine HCl 25 mg tablet 25 mg PO QHS PRN allergy symptoms 05/19/23 Unknown History (Allergy (diphenhydramine)) warfarin 3 mg tablet 3 mg PO .QMOTHSASU #90 tabs 04/30/24 Unknown Rx donepezil 10 mg tablet 10 mg PO QHS #30 tabs 05/10/24 Unknown Rx lamotrigine 25 mg tablet 50 mg (2 x 25 mg) PO BID #120 tabs 05/10/24 Unknown Rx acetaminophen 650 mg 650 mg PO Q8H 09/08/24 Unknown History tablet,extended release (Tylenol Arthritis Pain) irbesartan 300 mg tablet 300 mg PO DAILY 09/08/24 Unknown History metoprolol succinate 50 mg 50 mg PO DAILY 09/08/24 Unknown History tablet,extended release 24 hr calcium 600 mg (as 2 tab PO DAILY 09/10/24 Unknown History carbonate)-vitamin D3 5 mcg (200 unit) tablet (Calcium 600 + D(3)) diclofenac sodium 1 % topical gel 2 g topical BID 09/10/24 Unknown History (Arthritis Pain (diclofenac)) ondansetron HCl 4 mg tablet 4 mg PO Q6H PRN nausea and vomiting 09/10/24 Unknown History warfarin 2 mg tablet 2 mg PO .QTUWETH 09/10/24 Unknown History Allergy/AdvReac Type Severity Reaction Status Date / Time latex Allergy rash Verified 09/10/24 14:06 amiodarone AdvReac Severe hair loss Verified 09/10/24 14:06 atorvastatin (From Lipitor) AdvReac myalgia Verified 09/10/24 14:06 codeine AdvReac Nausea Verified 09/10/24 14:06 meperidine (From Demerol) AdvReac Nausea/Vom/ Verified 09/08/24 12:25 Diarrhea rosuvastatin (From Crestor) AdvReac myalgia Verified 09/10/24 14:06 Family History Father CAD (coronary artery disease) Brother CAD (coronary artery disease) Surgical History History of kyphoplasty (~05/2020) History of left heart catheterization (12/27/19) History of left hip replacement History of repair of rotator cuff History of knee replacement History of coronary artery stent placement (02/14/07) History of radiofrequency ablation procedure for cardiac arrhythmia (2011) Social History housing: assisted living facility Smoking Status: Former smoker how long ago did patient quit smokin years ago alcohol intake: former substance use type: does not use caffeine: No ROS Constitutional Constitutional: Denies chills, fatigue, fever(s) or weakness Eyes Eyes: Denies change in vision Cardiovascular Cardiovascular: Denies chest pain Respiratory/Chest Respiratory/Chest: Denies shortness of breath at rest Gastrointestinal Gastrointestinal: Denies abdominal pain Musculoskeletal Musculoskeletal: Denies arthralgias or myalgias Neurologic Neurologic: Denies abnormal speech, confusion, dizziness, focal weakness, headache(s), numbness or tingling Vital Signs Vital Signs Vital Signs: 09/10/24 13:50 09/10/24 13:58 09/10/24 14:06 Temperature 98 F 98 F Temperature Source Oral Oral Pulse Rate 72 Respiratory Rate 16 Blood Pressure 120/74 Blood Pressure Mean 89 Pulse Ox 95 Oxygen Delivery Method Room Air Room Air 09/10/24 14:25 09/10/24 14:30 09/10/24 15:00 Temperature Temperature Source Pulse Rate 83 73 80 Respiratory Rate 16 16 20 H Blood Pressure 75/53 L 75/53 L 131/97 H Blood Pressure Mean 60 60 108 Pulse Ox 95 95 95 Oxygen Delivery Method Room Air Room Air 09/10/24 15:30 Temperature Temperature Source Pulse Rate 80 Respiratory Rate 22 H Blood Pressure 124/73 H Blood Pressure Mean 90 Pulse Ox 97 Oxygen Delivery Method Room Air Weight Weight: 68.039 kg Body Mass Index (BMI) 26.5 Physical Exam Const alert, oriented x3, no apparent distress and average body habitus Constitutional Narrative: Pleasant elderly female, alert and oriented x 3 but with some tangential speech noted, otherwise sitting back comfortably in bed, conversing normally and in no acute distress. General Appearance: cooperative and comfortable HEENT normocephalic, head/scalp atraumatic, hearing grossly normal bilaterally, nasal mucous membranes and turbinates normal and moist oral mucous membranes Eyes PERRL, EOMs intact bilaterally and conjunctivae normal Neck full ROM Chest inspection of chest normal Resp normal respiratory effort, normal air movement, no use of accessory muscles and clear to auscultation bilaterally Cardio regular rate, regular rhythm, no murmurs and peripheral pulses 2+ throughout GI normal to inspection, nondistended, normoactive bowel sounds, soft to palpation, non-tender and non-distended Back/Spine normal ROM Extremity normal to inspection, full ROM and no pedal edema Skin no rashes or lesions noted Neuro CN's II-XII intact bilaterally, moves all extremities and no focal motor deficits Sensorium / Orientation: awake and alert Speech: speech normal Motor Exam: strength 5/5 throughout Psych mental status grossly normal Results Lab / Micro Data 09/10/24 14:50 09/10/24 14:50 Labs: Laboratory Results - last 24 hr 09/10/24 14:50: WBC 11.5 H, RBC 4.44, Hgb 13.6, Hct 41.7, MCV 93.9, MCH 30.6, MCHC 32.6, RDW Std Deviation 45.4 H, RDW Coeff of [place] 13.2, Plt Count 269, MPV 10.4, Immature Gran % (Auto) 0.400, Neut % (Auto) 72.3 H, Lymph % (Auto) 16.6 L, [place] % (Auto) 9.1, Eos % (Auto) 1.2, Baso % (Auto) 0.4, Absolute Neuts (auto) 8.3 H, Absolute Lymphs (auto) 1.91, Nucleated RBC % 0, PT 26.4 H, INR 2.4, APTT 31.8, Sodium 137, Potassium 4.4, Chloride 103, Carbon Dioxide 21.8, Anion Gap 12, BUN 37 H, Creatinine 1.05, Estim Creat Clear Calc 33.63 L, Est GFR (MDRD) Non-Af 51 L, BUN/Creatinine Ratio 34.8 H, Glucose 131 H, Calcium 8.7, Troponin T High Sens 18 H 09/10/24 15:03: Urine Color Straw, Urine Clarity Clear, Urine pH 5.0, Ur Specific [place] 1.010, Urine Protein 30 H, Urine Glucose (UA) Normal, Urine Ketones Negative, Urine Occult Blood Negative, Urine Nitrite Negative, Urine Bilirubin Negative, Urine Urobilinogen Normal, Ur Leukocyte Esterase 500 H, Urine RBC 0 SEEN, Urine WBC 10-25 SEEN, Ur Squamous Epith Cells 0-5 SEEN, Urine Bacteria RARE, Urine Mucus 0 SEEN Imaging Radiology Impression Brain CT 09/10/24 13:55 IMPRESSION: CHRONIC CHANGES. NO ACUTE FINDINGS. Red Alert: Chronic changes. The critical information above was relayed directly by me by telephone to Teri Garcia on 09/10/2024 at 2:05 pm with readback verification. Reading Location: [id number] Head/Neck CTA 09/10/24 13:55 IMPRESSION: Calcific plaque at the origin of the right and left internal carotid arteries causing 60% stenosis. Diffuse narrowing of the left posterior cerebral artery as well as the distal branches. Red Alert: Narrowing of Left Pos this is unchanged. The critical information above was relayed directly by me by telephone to Teri Garcia on 09/10/2024 at 3:01 pm with readback verification. Reading Location: [id number] Assessment & Plan Assessment/Plan (1) Difficulty with speech: PLAN: Plan Patient is an 89-year-old female who presented to [facility] ED on 09/10/2024 with dysarthria. 1. Episode of dysarthria with history of seizures, concern for CVA versus breakthrough seizure ? Admit under observation status to PCU. Neurology consulted. Episode of dysarthria that lasted about 30 minutes and resolved on its own. CT brain and CTA head/neck nonacute. Follows with Dr. Becerril with neurology who has been concern for possible epileptic episodes. Notably was here 3 days ago and Lamictal level was sent but result is pending. Orders placed per stroke protocol order set. MRI brain and routine EEG ordered. Continue home Lamictal. Continue home statin and Coumadin as below. Monitor closely. 2. Chronic debility with cognitive impairment ? PT/OT/case management consulted. Lives at assisted living and has known history of cognitive impairment. Continue home donepezil. Pending workup above, should be okay to return to assisted living on discharge. 3. History of CAD with stenting, hypertension, hyperlipidemia, longstanding persistent A-fib on Coumadin, carotid stenosis ? Continue home statin and Coumadin. INR therapeutic on admit. Will hold home beta-antonio and ARB for now for permissive hypertension, restart when able. 4. GERD ? Continue home PPI. DVT prophylaxis: Not indicated, on warfarin CODE STATUS: Full code, verified Expected disposition: Back to assisted living, 1 to 2 days Total clinical time spent by myself addressing the patient's medical issues, reviewing all the data, and collaborating with patient's care team: 55 minutes. Charges/Coding Visit Charges Inpatient E&M: 35591 Init Hosp L2
--- NOTE | 2024-09-10 16:03 | ED.VIS.STROK ---
HPI History of Present Illness Chief Complaint: Stroke Alert Informant: patient Narrative Narrative: Patient is 89-year-old female with history of TIA, carotid stenosis, dementia, longstanding persistent atrial fibrillation, seizures and long-term anticoagulation on Eliquis as well as hypertension. She is presenting today with strokelike symptoms. She arrived in the ER as a stroke alert. Per EMS reports she developed slurred speech which was noted at noon today by nursing staff. EMS notes she has had some mild improvement at this time. No other neurologic deficits reported. Patient was seen in our ER 2 days ago for breakthrough seizure and was discharged back. No report of any recent falls or trauma. Patient tells me that she has seizures that cause any speech changes. I spoke to her son Wilfredo (her eldest son) phone number [phone]. He states that she follows with Dr. Becerril (neurology) and he suspects that this could be epileptic episodes. He also tells me that he talk to her about 615 this morning and she seemed a little off with her mentation as well as her pronunciation. [facility] Medical History Closed fracture of right distal humerus Longstanding persistent atrial fibrillation COVID-19 virus detected (11/2020) Fatigue Closed fracture of inferior pubic ramus Lumbar vertebral fracture History of ST elevation myocardial infarction (STEMI) (02/14/07) Chronic diastolic (congestive) heart failure Old lateral wall myocardial infarction (02/14/07) Persistent atrial fibrillation Chronic kidney disease (CKD) Spinal stenosis Osteoarthritis Atherosclerotic heart disease of eagle coronary artery without angina pectoris Type 2 diabetes mellitus Essential (primary) hypertension Hyperlipidemia Obesity Pleural effusion on right (09/2019) Paroxysmal atrial fibrillation Home Medications ?Medication ?Instructions ?Recorded ?Last Taken ?Type multivitamin 1 cap PO DAILY 12/10/19 12/27/22 History omeprazole 20 mg capsule,delayed 20 mg PO DAILY reflux 11/14/22 12/27/22 History release atorvastatin 40 mg tablet 40 mg PO QHS 01/20/23 Unknown History ascorbic acid (vitamin C) 250 mg 250 mg PO DAILY 05/19/23 Unknown History tablet diphenhydramine HCl 25 mg tablet 25 mg PO QHS PRN allergy symptoms 05/19/23 Unknown History (Allergy (diphenhydramine)) warfarin 3 mg tablet 3 mg PO .QMOTHSASU #90 tabs 04/30/24 Unknown Rx donepezil 10 mg tablet 10 mg PO QHS #30 tabs 05/10/24 Unknown Rx lamotrigine 25 mg tablet 50 mg (2 x 25 mg) PO BID #120 tabs 05/10/24 Unknown Rx acetaminophen 650 mg 650 mg PO Q8H 09/08/24 Unknown History tablet,extended release (Tylenol Arthritis Pain) irbesartan 300 mg tablet 300 mg PO DAILY 09/08/24 Unknown History metoprolol succinate 50 mg 50 mg PO DAILY 09/08/24 Unknown History tablet,extended release 24 hr calcium 600 mg (as 2 tab PO DAILY 09/10/24 Unknown History carbonate)-vitamin D3 5 mcg (200 unit) tablet (Calcium 600 + D(3)) diclofenac sodium 1 % topical gel 2 g topical BID 09/10/24 Unknown History (Arthritis Pain (diclofenac)) ondansetron HCl 4 mg tablet 4 mg PO Q6H PRN nausea and vomiting 09/10/24 Unknown History warfarin 2 mg tablet 2 mg PO .QTUWETH 09/10/24 Unknown History Allergy/AdvReac Type Severity Reaction Status Date / Time latex Allergy rash Verified 09/10/24 14:06 amiodarone AdvReac Severe hair loss Verified 09/10/24 14:06 atorvastatin (From Lipitor) AdvReac myalgia Verified 09/10/24 14:06 codeine AdvReac Nausea Verified 09/10/24 14:06 meperidine (From Demerol) AdvReac Nausea/Vom/ Verified 09/08/24 12:25 Diarrhea rosuvastatin (From Crestor) AdvReac myalgia Verified 09/10/24 14:06 Family History Father CAD (coronary artery disease) Brother CAD (coronary artery disease) Surgical History History of kyphoplasty (~05/2020) History of left heart catheterization (12/27/19) History of left hip replacement History of repair of rotator cuff History of knee replacement History of coronary artery stent placement (02/14/07) History of radiofrequency ablation procedure for cardiac arrhythmia (2011) Social History housing: assisted living facility Smoking Status: Former smoker how long ago did patient quit smokin years ago alcohol intake: former substance use type: does not use caffeine: No ROS ROS ED Constitutional Constitutional ED: Denies chills or fever(s) Eyes Eyes: Denies change in vision ENT ENT ED: Reports other; Denies sore throat Cardiovascular Cardiovascular: Denies chest pain Respiratory/Chest Respiratory/Chest: Denies cough Gastrointestinal Gastrointestinal: Denies nausea or vomiting Integumentary Denies rash Neurologic Neurologic: Reports other Details: Slurred speech ; Denies headache(s), paresthesias or weakness Hematologic/Lymphatic Hematologic/Lymphatic: Reports easy bleeding, easy bruising and other Details: On Coumadin EXAM Physical Exam Const Vital Signs: 09/10/24 13:50 09/10/24 13:58 09/10/24 14:06 Temperature 98 F 98 F Temperature Source Oral Oral Pulse Rate 72 Respiratory Rate 16 Blood Pressure 120/74 Blood Pressure Mean 89 Pulse Ox 95 Oxygen Delivery Method Room Air Room Air 09/10/24 14:25 09/10/24 14:30 09/10/24 15:00 Temperature Temperature Source Pulse Rate 83 73 80 Respiratory Rate 16 16 20 H Blood Pressure 75/53 L 75/53 L 131/97 H Blood Pressure Mean 60 60 108 Pulse Ox 95 95 95 Oxygen Delivery Method Room Air Room Air 09/10/24 15:30 Temperature Temperature Source Pulse Rate 80 Respiratory Rate 22 H Blood Pressure 124/73 H Blood Pressure Mean 90 Pulse Ox 97 Oxygen Delivery Method Room Air Positive well nourished and well developed General Appearance ED: well developed and NAD HEENT Reports moist mucous membranes atraumatic Eyes PERRL and EOMs intact bilaterally Neck supple and no JVD Chest Wall inspection of chest normal and palpation of chest normal Resp normal respiratory effort and clear to auscultation bilaterally Cardio no murmurs Rhythm: regular rhythm GI normal to inspection, nondistended, normoactive bowel sounds and soft to palpation Extremity normal to inspection General Extremety ED: Negative for deformity or edema General Extremity: Negative for deformity or edema Neuro CN's II-XII intact bilaterally and no sensory deficits noted Neuro Narrative: Patient initially has mildly dysarthric speech but is understandable. Orientation gan is at her baseline. Sensorium / Orientation: alert, oriented to person and oriented to place Motor Exam: strength 5/5 throughout Psych mental status grossly normal Skin no wounds MDM MDM MDM Narrative Medical decision making narrative: Patient valuated for episode of altered speech. Differential includes stroke, intracranial hemorrhage, focal seizure as well as metabolic encephalopathy. Stroke alert was called. Patient's blood sugar per EMS was 159. CT of the brain as well as CTA head and neck are obtained in addition to basic labs. Workup largely unremarkable. CT of the brain does not show any acute intracranial process. There are calcifications of the bilateral internal carotid arteries causing 60% stenosis and diffuse narrowing of the left posterior cerebral artery however this is discussed with radiology (Dr. Gipson) and he states this is grossly unchanged compared to CTA in 2022. Patient is a mild leukocytosis 11.5 which is actually downtrending from 2 days ago. Urinalysis shows 500 leukocyte esterase, 10-25 white blood cells but only rare bacteria and some contamination. Will send for culture but defer treatment at this time. Patient is afebrile. Her INR is therapeutic at 2.4. I spoke again to her son Wilfredo on the phone. He is comfortable with admission here especially if we have that capabilities of performing a 20-minute EEG as there was some prior concern about seizure activity. I spoke with teleneurology, Dr. Simmons, through [facility]. He has a lower suspicion for seizure but recommends admission locally for further TIA/stroke workup. On repeat evaluation patient symptoms have resolved and she is at her baseline. Case discussed with hospitalist, Dr. Oro for admission. Neurology note from 05/10/[address] Becerril is reviewed. Patient had episodes of garbled speech/aphasia over the past few years each lasting about an hour. Suspect for complex partial seizure and started on lamotrigine. Has chronic gait abnormalities associated with neuropathy. She is on lamotrigine 50 mg twice daily. History & Record Review Additional record(s) reviewed:: Prior outpatient record Lab Data Attestation: I reviewed the patient's lab results. Labs: Laboratory Results - last 24 hr 09/10/24 09/10/24 14:50 15:03 WBC 11.5 H RBC 4.44 Hgb 13.6 Hct 41.7 MCV 93.9 MCH 30.6 MCHC 32.6 RDW Std Deviation 45.4 H RDW Coeff of Sumeet 13.2 Plt Count 269 MPV 10.4 Immature Gran % (Auto) 0.400 Neut % (Auto) 72.3 H Lymph % (Auto) 16.6 L [place] % (Auto) 9.1 Eos % (Auto) 1.2 Baso % (Auto) 0.4 Absolute Neuts (auto) 8.3 H Absolute Lymphs (auto) 1.91 Nucleated RBC % 0 PT 26.4 H INR 2.4 APTT 31.8 Sodium 137 Potassium 4.4 Chloride 103 Carbon Dioxide 21.8 Anion Gap 12 BUN 37 H Creatinine 1.05 Estim Creat Clear Calc 33.63 L Est GFR (MDRD) Non-Af 51 L BUN/Creatinine Ratio 34.8 H Glucose 131 H Calcium 8.7 Troponin T High Sens 18 H Urine Color Straw Urine Clarity Clear Urine pH 5.0 Ur Specific Mumford 1.010 Urine Protein 30 H Urine Glucose (UA) Normal Urine Ketones Negative Urine Occult Blood Negative Urine Nitrite Negative Urine Bilirubin Negative Urine Urobilinogen Normal Ur Leukocyte Esterase 500 H Urine RBC 0 SEEN Urine WBC 10-25 SEEN Ur Squamous Epith Cells 0-5 SEEN Urine Bacteria RARE Urine Mucus 0 SEEN Radiography Diagnostic Testing: Clinical Impression(s) from Imaging Studies Brain CT 09/10/24 13:55 IMPRESSION: CHRONIC CHANGES. NO ACUTE FINDINGS. Red Alert: Chronic changes. The critical information above was relayed directly by me by telephone to Teri Garcia on 09/10/2024 at 2:05 pm with readback verification. Reading Location: [id number] Head/Neck CTA 09/10/24 13:55 IMPRESSION: Calcific plaque at the origin of the right and left internal carotid arteries causing 60% stenosis. Diffuse narrowing of the left posterior cerebral artery as well as the distal branches. Red Alert: Narrowing of Left Pos this is unchanged. The critical information above was relayed directly by me by telephone to Teri Garcia on 09/10/2024 at 3:01 pm with readback verification. Reading Location: [id number] Rhythm Strip Rhythm Strip: A-fib Rate: 75 Ectopy: None EKG Initial EKG: Attestation: I personally reviewed and interpreted this EKG as follows: Interpretation: Atrial Fibrillation Comments: Atrial fibrillation at a rate of 75 bpm Left axis deviation Moderate voltage criteria for LVH Normal ST segments Management Discussion w/another healthcare provider: Hospitalist, Forgeman Helper and Radiologist Discharge Plan Triage Chief Complaint: Stroke Alert ED Provider: Teri Garcia Dx/Rx/DC Orders Clinical Impression: Difficulty with speech, manager terminal current use of anticoagulant, Atrial fibrillation, chronic, Epilepsy Prescriptions: No Action multivitamin Capsule 1 cap PO DAILY atorvastatin 40 mg tablet 40 mg PO QHS ascorbic acid (vitamin C) 250 mg tablet 250 mg PO DAILY diphenhydramine HCl [Allergy (diphenhydramine)] 25 mg tablet 25 mg PO QHS PRN (Reason: allergy symptoms) amlodipine 10 mg tablet 10 mg PO QDAY Qty: 90 3RF donepezil 10 mg tablet 10 mg PO QHS Qty: 30 9RF lamotrigine 25 mg tablet 50 mg PO BID Qty: 120 9RF omeprazole 20 mg capsule,delayed release(DR/EC) 20 mg PO DAILY irbesartan 300 mg tablet 300 mg PO DAILY acetaminophen [Tylenol Arthritis Pain] 650 mg tablet extended release 650 mg PO Q8H metoprolol succinate 50 mg tablet extended release 24 hr 50 mg PO DAILY warfarin 2.5 mg tablet 2.5 mg PO .QTUWEFR Qty: 90 3RF Protocol: Dose Management Condition: Friday Dose/Route: 3 mg Instruction: 1 x 3 mg tablet Condition: Friday Dose/Route: 3 mg Instruction: 1 x 3 mg tablet Condition: Friday Dose/Route: 2.5 mg Instruction: 1 x 2.5 mg tablet Condition: Friday Dose/Route: 2.5 mg Instruction: 1 x 2.5 mg tablet Condition: Dose/Route: 3 mg Instruction: 1 x 3 mg tablet Condition: Friday Dose/Route: 2.5 mg Instruction: 1 x 2.5 mg tablet Condition: Friday Dose/Route: 3 mg Instruction: 1 x 3 mg tablet Protocol Text: Adjustment Start Date: Friday07/19/24 INR Value: 2.2 INR Date: 07/19/24 Recheck Date: 08/18/24 Rx Instructions: or as directed warfarin 3 mg tablet 3 mg PO .QMOTHSASU Qty: 90 3RF Protocol: Dose Management Condition: Friday Dose/Route: 3 mg Instruction: 1 x 3 mg tablet Condition: Friday Dose/Route: 3 mg Instruction: 1 x 3 mg tablet Condition: Friday Dose/Route: 2.5 mg Instruction: 1 x 2.5 mg tablet Condition: Friday Dose/Route: 2.5 mg Instruction: 1 x 2.5 mg tablet Condition: Dose/Route: 3 mg Instruction: 1 x 3 mg tablet Condition: Friday Dose/Route: 2.5 mg Instruction: 1 x 2.5 mg tablet Condition: Friday Dose/Route: 3 mg Instruction: 1 x 3 mg tablet Protocol Text: Adjustment Start Date: Friday07/19/24 INR Value: 2.2 INR Date: 07/19/24 Recheck Date: 08/18/24 Rx Instructions: or as directed Primary Care Provider: Chucky Ochoa Referrals: Chucky Ochoa DO [Primary Care Provider] - Print Language: Khmer Disposition Disposition: Acute Care Hospital [facility] NIHSS NIHSS 1a. Level of Consciousness: 0 - Alert; keenly responsive 1b. LOC Questions: 0 - Answers BOTH questions correctly 1c. LOC Commands: 0 - Performs BOTH tasks correctly 2. Best Gaze: 0 - Normal 3. Visual: 0 - No visual loss 4. Facial Palsy: 0 - Normal symmetrical movements 5a. Left Arm: 0 - No drift; arm holds 90 (or 45) degrees for full 10 seconds 5b. Right Arm: 0 - No drift; arm holds 90 (or 45) degrees for full 10 seconds 6a. Left Le - No drift; leg holds 30-degree position for full 5 seconds 6b. Right Le - No drift; leg holds 30-degree position for full 5 seconds 7. Limb Ataxia: 0 - Absent 8. Sensory: 0 - Normal; no sensory loss 9. Best Language: 0 - No aphasia; normal 10. Dysarthria: 1 = [id number] dysarthria; 11. Extinction and Inattention: 0 - No abnormality Total: 1 Stroke Questions Stroke Team Activated: Yes Reviewed Inclusion/Exclusion criteria: Yes Was Patient considered for Endovascular Intervention?: No IV Thrombolytic Administered: No No contraindications from thrombolytic administration: No (Patient therapeutic on Coumadin and does not have debilitating stroke sympt)
--- NOTE | 2024-09-10 16:07 | MRI_ITS ---
PROCEDURE: BRAIN WITHOUT CONTRAST 09/10/2024 REASON FOR EXAM: CVA R/O TECHNIQUE: Noncontrast brain MRI. Multiplanar and multisequence images were obtained. FINDINGS: There is no abnormal diffusion to suggest an acute infarct. There is moderate cerebral atrophy with compensatory ventricular dilatation. There is mild periventricular chronic microvascular change. There is no acute or chronic hemorrhage. There is bilateral hippocampal atrophy which is not a symmetric. The craniovertebral junction is unremarkable MRI/Brain without Contrast IMPRESSION: Atrophy and mild microvascular changes Reading Location[facility]
[2024-09-10 17:38] LABS: Troponin T High Sens 2 HR 17 ng/L (<=14)
--- NOTE | 2024-09-10 17:59 | CM.ED ---
Social Work Reason for visit: Stroke Alert Patient presented today from [place]. Patient states she noticed increased problem with enunciating her words, other than that she reported to feeling well. Patient stated her son lives [place] but they stay in regular contact. No needs identified at this time. Hetal White, LOGISTICS ACCOUNT MANAGER, ANIMAL DOCTOR
--- OUTSIDE RECORDS SUMMARY | 2024-09-10 19:31 | XMS RPT_ITS | CCD ---
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 Name Role Phone LISHNEVSKI, ALEXIA Unavailable Unavailable LISHNEVSKI, ALEXIA Unavailable Unavailable LISHNEVSKI, ALEXIA Unavailable Unavailable LISHNEVSKI, ALEXIA Unavailable Unavailable LISHNEVSKI, ALEXIA Unavailable Unavailable LISHNEVSKI, ALEXIA Unavailable Unavailable LISHNEVSKI, ALEXIA Unavailable Unavailable LISHNEVSKI, ALEXIA Unavailable Unavailable LISHNEVSKI, ALEXIA Unavailable Unavailable LISHNEVSKI, ALEXIA Unavailable Unavailable LISHNEVSKI, ALEXIA Unavailable Unavailable LISHNEVSKI, ALEXIA Unavailable Unavailable LISHNEVSKI, ALEXIA Unavailable Unavailable CHAVARRIA, RICKEY X Unavailable Unavailable LISHNEVSKI, ALEXIA Unavailable Unavailable LISHNEVSKI, ALEXIA Unavailable Unavailable COLPOTALHAE Unavailable Unavailable LISHNEVSKI, ALEXIA Unavailable Unavailable LISHNEVSKI, ALEXIA Unavailable Unavailable Villa Hebert Unavailable Patito Gonzalez Unavailable Nirmal Kemp Unavailable Mohan Álvarez Unavailable [phone] Bakari Chavarrianandpierce PatelClive Unavailable [phone] Rosemary Doran Primary Care Provider Lishnevski, Alexia Primary Care Provider Zenaida Henderson Unavailable Dr. Rosemary Doran Primary Care Provider Dr. Rosemary Doran Referring Provider [phone] Roof SCALE MANAGER, SCALE MANAGERChristina Arnett Attending Provider Dr. Rosemary Doran Primary Care Provider Dr. Rosemary Doran Referring Provider Dr. Cesar Cole Attending Provider [phone] Rosemary Doran Primary Care Provider [phone] Dr. Rosemary Doran Referring Provider Dr. Anant Juarez Attending Provider Dr. Mo Saldana Attending Provider [phone] Cesar Cole Attending Provider [phone] Anant Juarez Referring Provider Dr. Neri Mitchell Emergency Provider Dr. Sae Carballo Admit Provider Dr. Sae Carballo Attending Provider Dr. Sae Carballo Other Provider Dr. Betina Carver Attending Provider NADIA Hoff Attending Provider [phone] Lali Pimentel Emergency Provider Dr. Lynn Horn Admit Provider Dr. Lynn Horn Attending Provider Dr. Lynn Horn Other Provider Dr. Rosemary Doran Primary Care Provider Dr. Rosemary Doran Referring Provider Dr. Anant Juarez Attending Provider Dr. Rosemary Doran Primary Care Provider [phone] Dr. Rosemary Doran Primary Care Provider Dr. Neri Mitchell Emergency Provider Dr. Sae Carballo Admit Provider Dr. Sae Carballo Attending Provider Dr. Sae Carballo Other Provider Dr. Betina Carver Attending Provider Dr. Rosemary Doran Referring Provider NADIA Hoff Attending Provider Dr. Lali Pimentel Emergency Provider Dr. Lynn Horn Admit Provider Dr. Lynn Horn Attending Provider Dr. Lynn Horn Other Provider Dr. Anant Juarez Attending Provider Dr. Rosemary Doran Primary Care Provider Dr. Rosemary Doran Referring Provider NADIA Alvarez Attending Provider Dr. Alexandra Hagen Primary Care Provider Dr. Rosemary Doran Referring Provider Dr. Anant Juarez Attending Provider Dr. Rosemary Doran Referring Provider NADIA Alvarez Attending Provider Dr. Alexandra Hagen Primary Care Provider Dr. Anant Juarez Attending Provider Dr. Lali Pimentel Emergency Provider Dr. Rosemary Doran Primary Care Provider MD Chucky Carney Attending Provider Alexandra Hagen Primary Care Provider JAYSHREE CORTEZ Admitting Unavailable CONNIE PEREZ Attending Unavailable ALEXANDRA HAGEN Primary Care Unavailable Jolliff MD, Dr. Alexandra S Primary Care Provider [phone] Dr. Chucky Ochoa MD Attending Provider Unavail able Dr. Chucky Ochoa MD Referring Provider Unavail able Cesar Cole MD Attending Provider Unavailable Dr. Rosemary Doran MD Referring Provider Dr. Anant Juarez MD Attending Provider Anant Juarez MD Attending Provider Unavailab kamari Hagen MD, Dr. Alexandra Leger Primary Care Provider Dr. Chucky Ochoa MD Attending Provider Unavail able Dr. Chucky Ochoa MD Referring Provider Unavail able Cesar Cole MD Attending Provider Unavailable Dr. Rosemary Doran MD Referring Provider Jerrica LENNON, Dr. Ny Attending Provider Anant Juarez MD Attending Provider Unavailab kamari Hagen MD, Dr. Alexandra Leger Primary Care Provider Dr. Chucky Ochoa MD Attending Provider Unavail able Dr. Alexandra Hagen MD Referring Provider Dr. Cesar Cole MD Attending Provider Xiao LENNON, Dr. Alexandra Leger Primary Care Provider [phone] Dr. Chucky Ochoa MD Attending Provider Unavail able Dr. Chucky Ochoa MD Referring Provider Unavail able Cesar Cole MD Referring Provider Unavailable Jolliff, Alexandra S Primary Care Unavailable Douglas MARTINEZ, Cesar Attending Unavailable Chucky Whalen Attending Unavailable Chucky Whalen Referring Unavailable Jolliff, Alexandra S Primary Care Unavailable Chucky Whalen Attending Unavailable Jolliff, Alexandra S Primary Care Unavailable Chucky Whalen Attending Unavailable Jolliff, Alexandra S Primary Care Unavailable Jolliff, Alexandra S Primary Care Unavailable Chucky Whalen Attending Unavailable Chucky Whalen Attending Unavailable Jolliff, Alexandra S Primary Care Unavailable Chucky Whalen Attending Unavailable Jolliff, Alexandra S Primary Care Unavailable Chucky Whalen Attending Unavailable Jolliff, Alexandra S Primary Care Unavailable Jolliff, Alexandra S Primary Care Unavailable Douglas MARTINEZ Allen Attending Unavailable Douglas OLS, Cesar Referring Unavailable Jolliff, Alexandra S Primary Care Unavailable Anant Mckay Attending Unavailable Chucky Whalen Attending Unavailable Jolliff, Alexandra S Primary Care Unavailable OchoaChucky Mitchell Attending Unavailable Jolliff, Alexandra S Primary Care Unavailable Jolliff, Alexandra S Primary Care Unavailable Don MARTINEZ Chucky Attending Unavailable Jolliff, Alexandra S Primary Care Unavailable Don MARTINEZ Chucky Referring Unavailable Ochoakhris MARTINEZ Chucky Attending Unavailable Jolliff, Alexandra S Primary Care Unavailable Douglas Cheikh MARTINEZl Attending Unavailable Don MARTINEZ Chucky Attending Unavailable Jolliff, Alexandra S Primary Care Unavailable Don MARTINEZ Chucky Attending Unavailable Jolliff, Alexandra S Primary Care Unavailable Ochoa OLS, Chucky Attending Unavailable Jolliff, Alexandra S Primary Care Unavailable Ochoa OLS, Chucky Attending Unavailable Jolliff, Alexandra S Primary Care Unavailable Jolliff, Alexandra S Primary Care Unavailable DouglasCesar Pedraza Attending Unavailable Jolliff, Alexandra S Primary Care Unavailable Anant Juarez Attending Unavailable Anant Juarez Referring Unavailable OchoaChucky Mitchell Attending Unavailable Jolliff, Alexandra S Primary Care Unavailable Don MARTINEZ Chucky Attending Unavailable Jolliff, Alexandra S Primary Care Unavailable Chucky Whalen Attending Unavailable Jolliff, Alexandra S Primary Care Unavailable Chucky Whalen Attending Unavailable Jolliff, Alexandra S Primary Care Unavailable Jolliff, Alexandra S Referring Unavailable Jolliff, Alexandra S Primary Care Unavailable DouglasAdam beltreril Attending Unavailable Don MARTINEZ Chucky Attending Unavailable Jolliff, Alexandra S Primary Care Unavailable Jolliff, Alexandra S Primary Care Unavailable Karenel, Rosemary Referring Unavailable Anant Juarez Attending Unavailable Jolliff, Alexandra S Referring Unavailable Miedel, Rosemary Primary Care Unavailable Anant Juarez Attending Unavailable Chucky Whalen Attending Unavailable Jolliff, Alexandra S Primary Care Unavailable Don MARTINEZ Chucky Referring Unavailable Chucky Whalen Attending Unavailable Jolliff, Alexandra S Primary Care Unavailable Jolliff, Alexandra S Primary Care Unavailable Chucky Whalen Attending Unavailable Jolliff, Alexandra S Primary Care Unavailable Don MARTINEZ Chucky Referring Unavailable Chucky Whalen Attending Unavailable Chucky Whalen Attending Unavailable Jolliff, Alexandra S Primary Care Unavailable Don MARTINEZ Chucky Attending Unavailable Jolliff, Alexandra S Primary Care Unavailable Jolliff, Alexandra S Primary Care Unavailable Don MARTINEZ Chucky Attending Unavailable Jolliff, Alexandra S Primary Care Unavailable Chucky Whalen Attending Unavailable Dr. Alexandra Hagen MD Primary Care Provider Douglas LENNON, Cesar Attending Provider Unavailable Dr. Chucky Ochoa MD Attending Provider Unavail able Neymar LENNON, Dr. Davalos Referring Provider Dr. Anoop Blackmon MD Emergency Provider Dr. Chucky Ochoa MD Primary Care Provider Unav ailable Xiao LENNON, Dr. Alexandra Leger Primary Care Provider Don WHEELER, Dr. Locke Primary Care Provider Jose WHEELER, Dr. Williamson Emergency Provider Preethi WHEELER, Dr. Castro Admit Provider Preethi WHEELER, Dr. Castro Attending Provider Amos LENNON, Dr. Baker Other Provider Dr. Janett French MD Other Provider Julia Carpenter MD Other Provider Sosa MS, Keyshawn Other Provider Jadon LENNON, Dr. Izaguirre Other Provider Delvis LENNON, Meagan Other Provider MAMADOU CANCINO MD Other Provider Lester LENNON, Cara Other Provider Flynn LENNON, Dr. Moseley Other Provider Mukesh LENNON, Robinson Other Provider Olman LENNON, Aura Other Provider Allergies Allergy Classification Reported Allergen(s) Allergy Type Date of Onset Reaction(s) Facility (20 sources) atorvastatin; 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: [ATORVASTATIN] Drug Allergy 5 Other: See Comments [facility] (20 sources) codeine; 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: [CODEINE] Drug Allergy 5 Unknown [facility] (20 sources) Latex; 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: [LATEX] Propensity to adverse reactions (disorder) 5 Rash, Itching [facility] (20 sources) meperidine; 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: [MEPERIDINE] Drug Allergy 5 GI Upset [facility] (20 sources) rosuvastatin; 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: [ROSUVASTATIN] Drug Allergy 5 Other: See Comments [facility] (20 sources) Amiodarone Drug Allergy 2 Hair falling out in gobs, hair loss [facility] (1 source) Amiodarone Drug Allergy 5 [facility] Repository Medications Current Medications Medication Drug Class(es) Dates Sig (Normalized) Sig (Original) 8 hr acetaminophen 650 mg extended release oral tablet (7 sources) Start: 09-08-2024 take 1 tablet by mouth every eight hours Acetaminophen (Tylenol Arthritis Pain) 650 mg tablet extended release Active 650 mg PO Q8H September 08, 2024 12:00am Start: 06-20-2023 End: 07-20-2023 take 2 tablets by mouth every eight hours acetaminophen (Tylenol) 500 MG tablet Take 2 tablets (1,000 mg) by mouth in the morning and 2 tablets (1,000 mg) at noon and 2 tablets (1,000 mg) before bedtime. 180 tablet 0 06/20/2023 07/20/2023 Active Start: 06-16-2023 End: 06-20-2023 take 1 tablet by mouth every six hours as needed for pain and fever acetaminophen (Tylenol) tablet 650 mg ascorbic acid 250 mg oral tablet (15 sources) Vitamin C Start: 05-19-2023 take 1 tablet by mouth once daily Ascorbic Acid (Vitamin C) 250 mg tablet Active 250 mg PO DAILY May 19, 2023 1:00am calcium carbonate 1500 mg / cholecalciferol 200 unt oral tablet (20 sources) Vitamin D Start: 09-10-2024 Calcium Carbonate-Vitamin D3 (Calcium 600 + D(3)) 600 mg-5 mcg (200 unit) tablet Active 2 {tbl} PO DAILY September 10, 2024 12:00am Start: 06-15-2020 End: 04-20-2021 Calcium Carbonate-Vitamin D3 1 EACH tablet Discontinued 1 NMA PO DAILY June 15, 2020 12:00am April 20, 2021 10:31am Start: 06-15-2020 End: 04-20-2021 Calcium Carbonate-Vitamin D3 Discontinued 1 EACH PO DAILY June 15, 2020 12:00am April 20, 2021 10:31am diclofenac sodium 0.01 mg/mg topical gel (1 source) Nonsteroidal Anti-inflammatory Drug Start: 09-10-2024 Diclofenac Sodium (Arthritis Pain (Diclofenac)) 1 % gel Active 2 g TOPICAL TWICE A DAY September 10, 2024 12:00am diphenhydrAMINE hydrochloride 25 mg oral tablet (20 sources) Histamine-1 Receptor Antagonist Start: 05-19-2023 take 1 tablet by mouth at bedtime as needed Diphenhydramine Hcl (Allergy (Diphenhydramine)) 25 mg tablet Active 25 mg PO AT BEDTIME as needed for allergy symptoms May 19, 2023 1:00am Start: 11-14-2022 End: 05-15-2023 take 1 tablet by mouth at bedtime as needed Diphenhydramine Hcl (Allergy) 25 mg tablet Discontinued 25 mg PO AT BEDTIME as needed for allergy symptoms November 14, 2022 12:00am May 15, 2023 10:35am Start: 08-04-2020 End: 01-31-2021 take 1 capsule by mouth at bedtime as needed for sleep Diphenhydramine Hcl 25 mg capsule Discontinued 25 mg PO AT BEDTIME as needed for Sleep August 04, 2020 12:00am January 31, 2021 8:41am docusate sodium 100 mg oral capsule (4 sources) Start: 06-18-2023 End: 06-30-2023 take 1 capsule by mouth twice daily docusate sodium 100 MG capsule Take 1 capsule (100 mg) by mouth 2 times daily for 10 days. 20 capsule 0 06/20/2023 06/30/2023 Active irbesartan 300 mg oral tablet (3 sources) Angiotensin 2 Receptor Lupe Start: 09-08-2024 take 1 tablet by mouth once daily Irbesartan 300 mg tablet Active 300 mg PO DAILY September 08, 2024 12:00am 24 hr metoprolol succinate 50 mg extended release oral tablet (20 sources) beta-Adrenergic Lupe Start: 09-08-2024 take 1 tablet by mouth once daily Metoprolol Succinate 50 mg tablet extended release 24 hr Active 50 mg PO DAILY September 08, 2024 12:00am Start: 06-17-2023 End: 06-20-2023 take 25 mg by mouth twice daily 25 mg, Oral, 2 times d cruz, First dose on Fri06/17/23 at 2145 Start: 05-16-2022 End: 09-08-2024 take 1 tablet by mouth twice daily Metoprolol Succinate 25 mg tablet extended release 24 hr Discontinued 25 mg PO TWICE A DAY May 16, 2022 6:51pm September 08, 2024 12:41pm Start: 10-18-2021 End: 05-16-2022 take 1 tablet by mouth once daily Metoprolol Succinate 25 mg tablet extended release 24 hr Discontinued 25 mg PO DAILY February 06, 2022 1:36pm May 16, 2022 6:52pm Start: 04-20-2021 End: 10-18-2021 take 1 tablet by mouth once daily Metoprolol Succinate 100 mg tablet extended release 24 hr Discontinued 100 mg PO DAILY April 20, 2021 10:31am October 18, 2021 11:13am Start: 01-31-2021 End: 04-20-2021 take 2 tablets by mouth once daily Metoprolol Succinate 100 mg tablet extended release 24 hr Discontinued 50 mg PO DAILY January 31, 2021 8:40am April 20, 2021 10:32am Easy open bottle Start: 01-31-2021 End: 04-20-2021 take 50 mg by mouth once daily Metoprolol Succinate Di scontinued 50 MG PO DAILY January 31, 2021 8:40am April 20, 2021 10:32am Easy open bottle Start: 12-10-2019 End: 01-31-2021 take 1 tablet by mouth once daily Metoprolol Succinate 100 mg tablet extended release 24 hr Discontinued 100 mg PO DAILY January 22, 2021 9:45am January 31, 2021 8:42am Easy open bottle Start: 12-10-2019 End: 12-10-2019 take 2 tablets by mouth once daily Metoprolol Succinate 100 mg tablet extended release 24 hr Discontinued 50 mg PO DAILY December 10, 2019 12:00am December 10, 2019 2:19pm Start: 12-10-2019 End: 12-10-2019 take 50 mg by mouth once daily Metoprolol Succinate Di scontinued 50 MG PO DAILY December 10, 2019 12:00am December 10, 2019 2:19pm Start: 10-11-2019 End: 12-10-2019 take 1 tablet by mouth once daily Metoprolol Succinate 50 MG tablet extended release 24 hr Discontinued 50 mg PO DAILY October 11, 2019 12:00am December 10, 2019 1:45pm Start: 08-03-2019 take 0.5 tablet by m outh once daily metoprolol succinate ER (TOPROL XL) 100 mg TAKE ONE-HALF TABLET BY MOUTH DAILY 45 tablet 0 08/03/2019 Active Comment on above: TAKE ONE-HALF TABLET BY MOUTH DAILY Multiple Vitamin (multivitamin) capsule (2 sources) take 1 capsule by mouth once daily Multiple Vitamin (multivitamin) capsule Take 1 capsule by mouth daily. 0 Active Multivitamin capsule (9 sources) Start: 0 Multivitamin capsule Active 1 NMA PO DAILY December 10, 2019 12:00am Start: 12-10-2019 Multivitamin c apsule Active 1 NMA PO DAILY December 09, 2019 11:00pm Multivitamin preparation (20 sources) Start: 12-10-2019 take 1 capsule by mouth once daily multivitamin Active 1 CAP PO DAILY December 10, 2019 12:00am Start: 12-10-2019 take 1 capsule by mo ut once daily multivitamin Active 1 CAP PO DAILY December 09, 2019 11:00pm omeprazole 20 mg delayed release oral capsule (20 sources) Proton Pump Inhibitor Start: 11-14-2022 take 1 capsule by mouth once daily Omeprazole 20 mg capsule,delayed release(DR/EC) Active 20 mg PO DAILY November 14, 2022 12:00am Start: 01-31-2021 End: 10-18-2021 take 1 capsule by mouth once daily as needed Omeprazole 20 mg capsule,delayed release(DR/EC) Discontinued 20 mg PO DAILY as needed April 20, 2021 10:32am October 18, 2021 10:30am Start: 12-10-2019 End: 08-04-2020 take 1 capsule by mouth once daily Omeprazole 20 mg capsule,delayed release(DR/EC) Discontinued 20 mg PO DAILY December 10, 2019 12:00am August 04, 2020 10:13am take 1 tablet by janel th once daily before breakfast omeprazole OTC (PriLOSEC OTC) 20 MG EC tablet Take 20 mg by mouth every morning (before breakfast). Do not crush, chew, or split. 0 Active ondansetron 4 mg oral tablet (1 source) Serotonin-3 Receptor Antagonist Start: 09-10-2024 take 1 tablet by mouth every six hours as needed for nausea and vomiting Ondansetron Hcl 4 mg tablet Active 4 mg PO EVERY 6 HOURS as needed for nausea and vomiting September 10, 2024 12:00am oxyCODONE hydrochloride 5 mg oral tablet (4 sources) Opioid Agonist Start: 06-20-2023 End: 06-25-2023 take 1 tablet by mouth every six hours as needed for pain oxyCODONE (Roxicodone) 5 MG immediate release tablet Indications: Closed displaced fracture of medial condyle of right humerus, initial encounter Take 1 tablet (5 mg) by mouth every 6 hours as needed for moderate pain (4-6) for up to 5 days. 20 tablet 0 06/20/2023 06/25/2023 Active Start: 06-16-2023 End: 06-20-2023 take 1 tablet by mouth every four hours as needed for pain oxyCODONE (Roxicodone) immediate release tablet 2.5 mg polyethylene glycol 3350 [id number] mg powder for oral solution (4 sources) Osmotic Laxative Start: 06-16-2023 End: 07-20-2023 take 17 g by mouth every twenty-four hours as needed polyethylene glycol, PEG, 3350 (Miralax) 17 g packet Take 17 g by mouth Daily as needed (constipation). 7 packet 2 06/20/2023 07/20/2023 Active warfarin sodium 2 mg oral tablet (20 sources) Vitamin K Antagonist Start: 09-10-2024 Warfarin 2 mg tablet Active 2 mg PO .QTUWETH September 10, 2024 12:00am Start: 04-07-2024 End: 04-30-2024 Warfarin 3 mg tablet Discont inued 3 mg PO .QMOTHSASU April 07, 2024 5:46pm April 30, 2024 3:51pm Please contact the information source for Protocol details. Start: 06-19-2023 warfarin (Coum rodrigo) tablet 5 mg Start: 10-15-2022 End: 09-10-2024 Warfarin 2.5 mg tablet Disco ntinued 2.5 mg PO .QTUWEFR April 30, 2024 3:49pm September 10, 2024 4:02pm or as directed Please contact the information source for Protocol details. Start: 04-20-2021 End: 10-15-2022 take 1 capsule by mouth once daily Warfarin Discontinued 2.5 MG PO DAILY April 20, 2021 10:32am October 15, 2022 9:33am take as directed and patient request that you use the easy cap, Managed by PCP Start: 10-11-2019 End: 01-31-2020 take 1 capsule by mouth once Warfarin 3 mg tablet Disc ontinued 3 mg PO every Friday, , , Sat 60 January 10, 2020 11:16am January 31, 2020 11:07pm take as directed and patient request that you use the easy cap, Please contact the information source for Protocol details. Start: 07-14-2019 End: 10-15-2022 Warfarin 2 MG tablet Discont inued 2 mg PO MOWEOctober 11, 2019 12:00am January 10, 2020 11:22am Comment on above: take 1 tablet (2 mg) by mouth on friday, friday and friday. take 1 and 1/2 tablets (3 mg) on all other days Completed/Discontinued Medications Medication Drug Class(es) Dates Sig (Normalized) Sig (Original) acetaminophen 325 mg / HYDROcodone bitartrate 5 mg oral tablet (20 sources) Opioid Agonist Start: 08-11-2020 End: 01-31-2021 Hydrocodone-Acetami nophen 1 TABLET tablet Discontinued 1 {tbl} PO EVERY 6 HOURS NEEDED as needed for Pain 03 02August 11, 2020 January 31, 2021 8:41am Start: 08-11-2020 End: 01-31-2021 take 1 tablet by mouth every six hours as needed Hydrocodone-Acetaminophen Discontinued 1 TABLET PO EVERY 6 HOURS NEEDED 03 02August 11, 2020 January 31, 2021 8:41am acetaminophen 325 mg / oxyCODONE hydrochloride 5 mg oral tablet (20 sources) Opioid Agonist Start: 04-19-2020 End: 04-24-2020 Oxycodone-Acetaminophen 1 TABLET tablet Discontinued 1 {tbl} PO EVERY 6 HOURS NEEDED as needed for Back pain 17 08April 19, 2020 April 23, 2020 1:00am April 24, 2020 1:03am Start: 04-19-2020 End: 04-24-2020 take 1 tablet by mouth every six hours as needed Oxycodone-Acetaminophen Discontinued 1 TABLET PO EVERY 6 HOURS NEEDED 17 08April 19, 2020 April 24, 2020 1:03am amiodarone hydrochloride 200 mg oral tablet (20 sources) Antiarrhythmic Start: 08-04-2020 End: 08-09-2020 Amiodarone 200 mg tablet Discontinued 100 mg PO DAILY August 04, 2020 10:56am August 09, 2020 4:53pm Start: 08-04-2020 End: 08-09-2020 take 100 mg by mouth once daily Amiodarone Discontinue d 100 MG PO DAILY August 04, 2020 10:56am August 09, 2020 4:53pm Start: 02-28-2020 End: 08-04-2020 take 1 tablet by mouth once daily Amiodarone 200 mg tablet Discontinued 200 mg PO DAILY August 04, 2020 10:12am August 04, 2020 10:56am Start: 12-30-2019 End: 02-28-2020 take 1 tablet by mouth twice daily Amiodarone 200 mg tablet Discontinued 200 mg PO TWICE A DAY 60 December 30, 2019 12:00am February 28, 2020 5:40pm amLODIPine 10 mg oral tablet (5 sources) Dihydropyridine Calcium Channel Lupe Start: 07-01-2024 End: 09-10-2024 take 1 tablet by mouth once daily Amlodipine 10 mg tablet Discontinued 10 mg PO daily July 01, 2024 12:00am September 10, 2024 4:02pm aspirin 81 mg chewable tablet (20 sources) Platelet Aggregation Inhibitor, Nonsteroidal Anti-inflammatory Drug Start: 12-28-2022 End: 01-20-2023 take 1 tablet by mouth at breakfast Aspirin 81 mg Tablet,Chewable Discontinued 81 mg PO WITH BREAKFAST December 28, 2022 12:00am January 20, 2023 8:58am Start: 01-31-2021 End: 04-20-2021 take 1 tablet by mouth once daily Aspirin (Adult Aspirin Regimen) 81 mg tablet,delayed release (DR/EC) Discontinued 81 mg PO DAILY January 31, 2021 12:00am April 20, 2021 10:30am atorvastatin 20 mg oral tablet (20 sources) HMG-CoA Reductase Inhibitor Start: 06-17-2023 End: 06-20-2023 take 40 mg by mouth once daily 40 mg, Oral, Nightly, First dose on Fri06/17/23 at 2145 Start: 01-20-2023 take 1 tablet by janel th at bedtime Atorvastatin 40 mg tablet Active 40 mg PO AT BEDTIME January 20, 2023 12:00am betamethasone 3 mg/ml / betamethasone acetate 3 mg/ml injectable suspension (1 source) Corticosteroid Start: 05-13-2019 betamethasone acetate-betamethasone sodium phosphate 12 mg injection (CELESTONE) calcium ascorbate 500 mg oral tablet (20 sources) Start: 01-31-2021 End: 05-15-2023 take 1 tablet by mouth once daily Ascorbate Calcium (Vitamin C) 500 mg tablet Discontinued 500 mg PO DAILY January 31, 2021 12:00am May 15, 2023 10:35am Start: 12-10-2019 End: 08-04-2020 take 1 tablet by mouth once daily Ascorbate Calcium (Vitamin C) 500 mg tablet Discontinued 500 mg PO DAILY December 10, 2019 12:00am August 04, 2020 10:14am ceFAZolin 2000 mg injection (2 sources) Cephalosporin Antibacterial Start: 06-18-2023 End: 06-19-2023 take 2000 mg intravenously every eight hours 2,000 mg, IntraVENous, Administer over 30 Minutes, Every 8 hours, First dose on Fri06/18/23 at 1600, For 24 hours, Recovery & On Unit, premix bag, Suspected Indication (Select all that apply): Surgical Prophylaxis cholecalciferol 0.025 mg oral capsule (20 sources) Vitamin D Start: 12-10-2019 End: 08-04-2020 take 1 capsule by mouth once daily Cholecalciferol (Vitamin D3) 25 mcg (1,000 unit) capsule Discontinued 25 ug PO DAILY December 10, 2019 12:00am August 04, 2020 10:13am take 1 tablet by mouth once aditi y cholecalciferol (VITAMIN D3) 1,000 unit tab Take 1,000 Units by mouth once daily. 0 Active Comment on above: Take 1,000 Units by mouth once daily. cholecalciferol 9.52 unt/ml / glucose 357 mg/ml oral gel (2 sources) Vitamin D Start: 06-17-19 End: 06-20-19 15 g, Oral, As needed, low blood sugar, Starting on Fri06/17/23 at 2131, If blood glucose less than 50 mg/dL and patient ALERT and NOT NPO, give 2 tubes glucose gel. If blood glucose less than 70 mg/dL and patient ALERT and NOT NPO, give 1 tube glucose gel. Repeat blood glucose in 15 minutes. If blood glucose is less than 70 mg/dL, repeat treatment and recheck blood glucose in 15 minutes x2 and notify provider. clopidogrel 75 mg oral tablet (20 sources) P2Y12 Platelet Inhibitor Start: 12-23-19 End: 12-28-19 take 1 tablet by mouth once daily Clopidogrel (Plavix) 75 mg tablet Discontinued 75 mg PO DAILY December 23, 2019 12:00am December 28, 2019 2:23pm donepezil hydrochloride 10 mg oral tablet (20 sources) Start: 09-19-19 End: 05-10-19 take 1 tablet by mouth at bedtime Donepezil 10 mg tablet Discontinued 10 mg PO AT BEDTIME September 22, 2023 3:14pm May 10, 2024 4:21pm Start: 09-18-2022 End: 11-14-2022 take 1 tablet by mouth at bedtime Donepezil 5 mg tablet Discontinued 5 mg PO AT BEDTIME September 18, 2022 12:00am November 14, 2022 4:14pm fluticasone propionate 0.05 mg/actuat metered dose nasal spray (16 sources) Corticosteroid Start: 01-20-2023 End: 05-15-2023 Fluticasone Propionate (Flonase Allergy Relief) 50 mcg/actuation spray,suspension Discontinued 2 NMA INTRANASAL DAILY January 20, 2023 12:00am May 15, 2023 10:35am administer into each nostril Every day for three weeks starting 01-09-23 furosemide 40 mg oral tablet (20 sources) Loop Diuretic Start: 12-10-2019 End: 10-15-2022 take 1 tablet by mouth once daily Furosemide 40 mg tablet Discontinued 40 mg PO DAILY December 10, 2019 2:19pm October 15, 2022 9:32am EASY OPEN BOTTLE Start: 01-21-2019 End: 12-10-2019 take 1 tablet by mouth once daily Furosemide 20 MG tablet Discontinued 20 mg PO DAILY October 11, 2019 12:00am December 10, 2019 2:19pm Comment on above: TAKE ONE TABLET BY M OUTH EVERY DAY TAKE ONE TABLET BY M OUTH ONCE DAILY glucagon (rdna) 1 mg injection (2 sources) Antihypoglycemic Agent Start: 06-17-2023 End: 06-20-2023 1 mg, IntraMUSCular, PRN, low blood sugar, Blood glucose less than 70 mg/dL and patient NOT ALERT or NPO and does not have IV access., Starting on Fri06/17/23 at 2131, After administration, attempt intravenous access and start D5W at 100 mL/hr. Repeat blood glucose in 15 minutes x2 and notify provider. 150 ml glucose 50 mg/ml injection (4 sources) Start: 06-17-2023 End: 06-20-2023 12.5 g, IntraVENous, PRN, low blood sugar, Blood glucose less than 70 mg/dL and patient NOT ALERT or NPO., Starting on Fri06/17/23 at 2131, If patient does not respond within 5 minutes, repeat dose x1. Start D5W at 100 mL/hour until ordering provider can be reached. Repeat blood glucose in 15 minutes. If blood glucose is less than 70 mg/dL, repeat treatment and recheck blood glucose in 15 minutes x2. If using Glucostabilizer, dose as instructed per system. Start: 06-17-2023 End: 06-20-2023 100 mL/hr, IntraVENous, PRN, Blood sugar less than 70mg/dL, Starting on Fri06/17/23 at 2131, Start infusion following administration of dextrose 50% or glucagon. 1 ml HYDROmorphone hydrochloride 1 mg/ml cartridge (2 sources) Opioid Agonist Start: 06-16-2023 End: 06-20-2023 take 0.5 mg intravenously every four hours as needed for pain HYDROmorphone (Dilaudid) injection 0.5 mg Insulin Lispro (Humalog) injection 0-6 Units (2 sources) Start: 06-18-2023 End: 06-20-2023 Insulin Lispro (Humalog) injection 0-6 Units ammonium lactate 120 mg/ml topical lotion (1 source) Start: 07-08-2017 ammonium lactate (LAC-HYDRIN) 12 % lotion Apply 1 application to affected area as needed. 1 Bottle 1 07/08/2017 Active Comment on above: Apply 1 application to affected area as needed. lamoTRIgine 25 mg oral tablet (20 sources) Mood Stabilizer, Anti-epileptic Agent Start: 05-19-2023 End: 05-10-2024 take 2 tablets by mouth twice daily Lamotrigine 25 mg tablet Discontinued 50 mg PO TWICE A DAY 120 September 22, 2023 3:14pm May 10, 2024 4:21pm Start: 05-19-2023 End: 06-20-2023 take 50 mg by mouth twice daily 50 mg, Oral, 2 times d aily, First dose on Fri06/17/23 at 2145 Start: 01-23-2023 End: 05-19-2023 take 1 tablet by mouth once daily, then take 1 tablet by mouth twice daily Lamotrigine 25 mg tablet Discontinued 25 mg .ROUTE .COMPLEX 60 January 23, 2023 4:51pm May 19, 2023 1:04pm Take 1 tablet orally daily for 1 week then 1 tablet twice daily thereafter. levETIRAcetam 250 mg oral tablet (20 sources) Start: 01-20-2023 End: 01-23-2023 take 1 tablet by mouth twice daily Levetiracetam 250 mg tablet Discontinued 250 mg PO TWICE A DAY 60 January 20, 2023 8:57am January 23, 2023 4:50pm 10 ml lidocaine hydrochloride 10 mg/ml injection (1 source) Antiarrhythmic, Amide Local Anesthetic Start: 05-13-2019 lidocaine (PF) 10 mg/mL (1 %) 3 mL injection (XYLOCAINE) lisinopril 5 mg oral tablet (20 sources) Angiotensin Converting Enzyme Inhibitor Start: 12-10-2019 End: 12-05-2022 take 1 tablet by mouth once daily Lisinopril 5 mg tablet Discontinued 5 mg PO DAILY December 10, 2019 12:00am December 05, 2022 9:29am Start: 07-14-2019 take 1 tablet by janel th once daily lisinopril (ZESTRIL, PRINIVIL) 5 mg tablet TAKE ONE TABLET BY MOUTH once DAILY 90 tablet 0 07/14/2019 Active Comment on above: TAKE ONE TABLET BY M OUTH once DAILY melatonin 10 mg oral capsule (20 sources) Start: 04-16-2022 End: 12-05-2022 take 1 capsule by mouth at bedtime as needed for sleep Melatonin 10 mg capsule Discontinued 10 mg PO BEDTIME as needed for sleep April 16, 2022 1:00am December 05, 2022 9:28am take 1 tablet by janel th once daily at bedtime melatonin 1 mg tablet Take 1 mg by mouth daily at bedtime. 0 Active Comment on above: Take 1 mg by mouth d aily at bedtime. metFORMIN hydrochloride 500 mg oral tablet (1 source) Biguanide Start: 04-27-19 take 1 tablet by mouth once daily at breakfast metFORMIN (GLUCOPHAGE) 500 mg tablet Take 1 tablet by mouth daily with breakfast. 0 04/27/2019 Active Comment on above: Take 1 tablet by janel th daily with breakfast. 1 ml naloxone hydrochloride 0.4 mg/ml injection (2 sources) Opioid Antagonist Start: 06-16-19 End: 06-20-19 naloxone (Narcan) injection 0.4 mg ondansetron ODT (Zofran-ODT) disintegrating tablet 4 mg (2 sources) Start: 06-16-19 End: 06-20-19 take 1 tablet by mouth every eight hours as needed for nausea and vomiting ondansetron ODT (Zofran-ODT) disintegrating tablet 4 mg pantoprazole 40 mg delayed release oral tablet (2 sources) Proton Pump Inhibitor Start: 06-18-19 End: 06-20-19 take 40 mg by mouth once daily before breakfast 40 mg, Oral, Daily before breakfast, First dose on Fri06/18/23 at 0600, Substituted for omeprazole (Prilosec). Do not crush, chew, or split. phytonadione (Vitamin K) 10 mg in sodium chloride 0.9 % 100 mL IVPB (2 sources) Start: 06-16-19 End: 06-16-19 phytonadione (Vitamin K) 10 mg in sodium chloride 0.9 % 100 mL IVPB raNITIdine 150 mg oral tablet (1 source) Histamine-2 Receptor Antagonist Start: 07-05-19 take 1 tablet by mouth once daily ranitidine (ZANTAC) 150 mg tablet TAKE ONE TABLET BY MOUTH EVERY DAY 90 tablet 0 07/05/2019 Active Comment on above: TAKE ONE TABLET BY M OUTH EVERY DAY simvastatin 20 mg oral tablet (20 sources) HMG-CoA Reductase Inhibitor Start: 01-21-20 End: 01-21-20 take 2 tablets by mouth once daily Simvastatin 20 mg tablet Discontinued 40 mg PO DAILY January 20, 2023 3:33pm January 20, 2023 3:38pm Start: 01-20-2023 End: 01-20-2023 take 40 mg by mouth once daily Simvastatin Discontinue d 40 MG PO DAILY January 20, 2023 3:33pm January 20, 2023 3:38pm Start: 07-28-2019 End: 01-20-2023 take 1 tablet by mouth once daily Simvastatin 20 MG tablet Discontinued 20 mg PO DAILY October 11, 2019 12:00am January 20, 2023 3:34pm Comment on above: TAKE ONE TABLET BY M OUTH DAILY AT BEDTIME 1000 ml sodium chloride 9 mg/ml injection (2 sources) Start: 4 End: 4 sodium chloride 0.9 % infusion traMADol hydrochloride 50 mg oral tablet (20 sources) Opioid Agonist Start: 2 End: 3 take 1 tablet by mouth four times daily as needed for pain Tramadol 50 mg tablet Discontinued 50 mg PO 4 TIMES DAILY NEEDED as needed for pain 12 3 February 11, 2022 2:49am October 15, 2022 9:33am ubidecarenone 100 mg oral capsule (20 sources) Start: 0 End: 0 Coenzyme Q10 (Co Q-10) 100 mg capsule Discontinued 100 mg PO DAILY December 10, 2019 12:00am December 10, 2019 1:45pm ubidecarenone (COQ-10 ORAL) (1 source) take 1 capsule by mouth once daily ubidecarenone (COQ-10 ORAL) Take 1 capsule by mouth once daily. 0 Active Comment on above: Take 1 capsule by mo uth once daily. Problems Active Problems Problem Classification Problem Date Documented Da te Episodic/Chronic Adjustment disorders (5 sources) Adjustment disorder with depressed mood; 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: [Adjustment disorder with depressed mood] Onset: 07-07-2017 07-07-2017 Chronic Asthma (5 sources) Reactive airway disease; 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: [Reactive airway disease] Onset: 11-14-2015 11-14-2015 Chronic Cardiac dysrhythmias (20 sources) Atrial fibrillation; 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: [Persistent atrial fibrillation] Onset: 06-04-2024 05-19-2015 Chronic Comment on above: RFA 2011 Chronic kidney disease (5 sources) Chronic kidney disease stage 2; 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: [Chronic kidney disease, stage 2, mildly decreased GFR] 12-11-2016 Chronic Congestive heart failure; nonhypertensive (20 sources) Chronic diastolic heart failure; 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: [Chronic diastolic (congestive) heart failure] Chronic Coronary atherosclerosis and other heart disease (20 sources) Coronary atherosclerosis; 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: [Coronary arteriosclerosis] Onset: 02-14-2007 11-14-2015 Chronic Coronary atherosclerosis and other heart disease (5 sources) Stented coronary artery; 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: [Presence of stent in coronary artery] Onset: 03-02-2016 03-02-2016 Delirium, dementia, and amnestic and other cognitive disorders (20 sources) Dementia; 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: [Unspecified dementia without behavioral disturbance] 09-18-2022 Chronic Diabetes mellitus with complications (5 sources) 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; 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] 05-19-2015 Chronic Diabetes mellitus without complication (5 sources) Type 2 diabetes mellitus; 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: [Type 2 diabetes mellitus] 05-13-2015 Chronic Disorders of lipid metabolism (20 sources) Mixed hyperlipidemia; 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: [Hyperlipidemia] 11-27-2018 Chronic E Codes: Fall (11 sources) Fall; 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: [Unspecified fall, initial encounter] 06-16-2023 Episodic Epilepsy; convulsions (20 sources) Epilepsy; 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: [Epilepsy, unspecified, not intractable, without status epilepticus] Onset: 05-10-2024 04-30-2023 Chronic Essential hypertension (20 sources) Essential hypertension; 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: [Essential (primary) hypertension] Onset: 04-30-2024 05-19-2015 Chronic Fracture of upper limb (20 sources) Closed fracture of lower end of humerus; 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: [Unspecified fracture of lower end of right humerus, initial encounter for closed fracture] Onset: 06-16-2023 06-16-2023 Episodic Malaise and fatigue (20 sources) Fatigue; 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: [Other fatigue] 04-08-2022 Episodic Nonspecific chest pain (20 sources) Chest pain; 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: [Chest pain, unspecified] 02-19-2022 Episodic Nutritional deficiencies (5 sources) Vitamin D deficiency; 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: [Vitamin D deficiency] 05-19-2015 Chronic Occlusion or stenosis of precerebral arteries (20 sources) Carotid artery stenosis; 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: [Occlusion and stenosis of unspecified carotid artery] 09-18-2022 Chronic Osteoarthritis (5 sources) Osteoarthritis; 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: [Osteoarthritis] 05-19-2015 Chronic Other aftercare (20 sources) Long-term current use of anticoagulant; 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: [USP (current) use 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] Onset: 11-27-2018 11-27-2018 Episodic Other aftercare (2 sources) buttermaker (current) use 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; 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: [USP (current) use 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] Onset: 07-20-2024 Episodic Other and unspecified benign neoplasm (5 sources) [...] 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: [Peripheral venous insufficiency] 05-19-2015 Episodic Other fractures (20 sources) Closed 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 lumbar vertebra; 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: [Unspecified 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 lumbar vertebra, initial encounter for closed fracture] 04-20-2020 Episodic Other fractures (20 sources) Fracture of inferior pubic ramus; 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: [Other specified fracture of unspecified pubis, initial encounter for closed fracture] 03-15-2021 Episodic Other fractures (20 sources) Compression fracture of lumbar spine; 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: [Wedge compression fracture of unspecified lumbar vertebra, initial encounter for closed fracture] 09-18-2022 Episodic Other lower respiratory disease (20 sources) Dyspnea; 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: [Dyspnea, unspecified] 04-08-2022 Episodic Other nervous system disorders (20 sources) Polyneuropathy; 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: [Polyneuropathy, unspecified] 09-18-2022 Chronic Other nervous system disorders (19 sources) Polyneuropathy, unspecified; 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: [Unspecified hereditary and idiopathic peripheral neuropathy] 09-18-2022 Chronic Other nervous system disorders (20 sources) Aphasia; 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: [Aphasia] 11-18-2022 Chronic Other nervous system disorders (20 sources) Abnormal gait; 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: [Unspecified abnormalities of gait and mobility] 09-18-2022 Episodic Other nervous system disorders (12 sources) Unspecified abnormalities of gait and mobility; 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: [Abnormality of gait] 09-18-2022 Episodic Other nervous system disorders (18 sources) Dysarthria; 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: [Dysarthria and anarthria] 12-27-2022 Episodic Other nervous system disorders (18 sources) Has difficulty with speech; 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: [Unspecified speech disturbances] 12-27-2022 Episodic Other nervous system disorders (4 sources) Unspecified speech disturbances; 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: [Other speech disturbance] 12-28-2022 Episodic Other nervous system disorders (4 sources) Dysarthria and anarthria; 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: [Dysarthria] 12-28-2022 Episodic Other non-traumatic joint disorders (5 sources) Rotator cuff arthropathy of right shoulder; 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: [Rotator cuff tear arthropathy, right] Onset: 02-04-2019 02-04-2019 Other nutritional; endocrine; and metabolic disorders (5 sources) Obese class I; 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: [Obesity, Class I, BMI 30-34.9] Onset: 07-21-2017 07-21-2017 Other screening for suspected conditions (not mental disorders or infectious disease) (4 sources) Deviation of international normalized ratio from target range; 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: [Abnormal coagulation profile] 11-14-2022 Episodic Residual codes; unclassified (20 sources) Acute confusion; 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: [Disorientation, unspecified] 09-16-2022 Episodic Spondylosis; intervertebral disc disorders; other back problems (5 sources) Spinal stenosis; 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: [Spinal stenosis] 05-19-2015 Episodic Syncope (11 sources) Syncope; 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: [Syncope and collapse] 06-16-2023 Episodic Transient cerebral ischemia (20 sources) Transient cerebral ischemia; 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: [Transient cerebral ischemic attack, unspecified] 09-18-2022 Chronic Unclassified (1 source) Other specified postprocedural states Onset: 01-05-2018 Episodic Unclassified (1 source) Unknown / UNK(Unknown) Onset: 01-05-2018 Unclassified (5 sources) Drug therapy finding; 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: [On anticoagulant therapy] 05-19-2015 Unclassified (5 sources) History of repair of hip joint; 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: [Status post left hip replacement] Onset: 05-19-2015 05-19-2015 Unclassified (1 source) Chronic atrial fibrillation, unspecified; 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: [Chronic atrial fibrillation, unspecified] Onset: 04-30-2024 Past or Other Problems Problem Classification Problem Date Documented Da te Episodic/Chronic Biliary tract disease (5 sources) Biliary calculus; 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: [Asymptomatic cholelithiasis] Onset: 6 12-18-2015 Episodic Coronary atherosclerosis and other heart disease (20 sources) History of placement of stent for coronary artery disease; 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: [Presence of coronary angioplasty implant and graft] Onset: 7 11-24-2015 Episodic Other aftercare (1 source) Other senior care (current) drug therapy; 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: [Other senior care (current) drug therapy] Onset: 5 Episodic Other bone disease and musculoskeletal deformities [...] rotator cuff repair] Onset: 9 02-04-2019 Episodic Viral infection (20 sources) COVID-19; 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: [Severe acute respiratory syndrome coronavirus 2 (SARS-CoV-2) detected] Onset: 1 03-15-2021 Episodic Results Test Name Value Interpretation Reference Range Facility Absolute lymphocyte countOrd ered By: Teri Garcia on 09-10-2024 Lymphocytes Auto (Unsp spec) [#/Vol] 1.91 10*3/uL 0.83-4.51 [facility] Absolute neutrophil countOrd ered By: Teri Garcia on 09-10-2024 Neutrophils (Bld) [#/Vol] 8.3 10*3/uL High 2.0-7.7 [facility] Activated partial thrombopla stin time (aPTT) in platelet poor plasma by coagulation aOrdered By: Teri Garcia on 09-10-2024 aPTT Coag (PPP) [Time] 31.8 s 24.1-36.2 [facility] Anion gap in Serum or Plasma Ordered By: Teri Garcia on 09-10-2024 Anion gap [Moles/Vol] 12 mmol/L 5-15 [facility] Automated lymphocyte count a s percentage of total leukocytesOrdered By: Teri Garcia on 09-10-2024 Lymphocytes/100 WBC Auto (Unsp spec) 16.6 % Low 19-41 [facility] BUN/creatinine ratioOrdered By: Teri Garcia on 09-10-2024 Urea nitrogen/Creatinine [Mass ratio] 34.8 mg/mg High 10-20 [facility] Basophil percentageOrdered B y: Teri Garcia on 09-10-2024 Basophils/100 WBC (Bld) 0.4 % 0-1 [facility] Bilirubin Test strip Ql (U)O rdered By: Teri Garcia on 09-10-2024 Bilirubin Ql (U) Negative Negative [facility] Carbon dioxide, total [Moles /volume] in Central venous bloodOrdered By: Teri Garcia on 09-10-2024 CO2 [Moles/Vol] 21.8 mmol/L 21.0-32.0 [facility] Chloride assayOrdered By: Adam Garcia on 09-10-2024 Chloride [Moles/Vol] 103 mmol/L 98-108 [facility] Eosinophil percentageOrdered By: Teri Garcia on 09-10-2024 Eosinophils/100 WBC (Bld) 1.2 % 0-5 [facility] Erythrocyte distribution wid th ratioOrdered By: Teri Garcia on 09-10-2024 Erythrocyte distribution width (RBC) [Ratio] 13.2 % 11.6-14.6 [facility] Erythrocyte distribution wid th standard deviationOrdered By: Teri Garcia on 09-10-2024 Erythrocyte distribution width (RBC) [Ratio] 45.4 fl High 35.1-43.9 [facility] Glomerular filtration rate ( GFR) estimation/1.73 sq m using serum, plasma, or whole bOrdered By: Teri Garcia on 09-10-2024 GFR/1.73 sq M.predicted among non-blacks MDRD (S/P/Bld) [Vol rate/Area] 51 mL/min/{1.73_m2} Low >60 [facility] Comment on above: mL/min/1.73m2 CKD-EP I Creatinine Equation (2020) Hematocrit Auto (Bld) [Volum e fraction]Ordered By: Teri Garcia on 09-10-2024 Hematocrit (Bld) [Volume fraction] 41.7 % 37-47 [facility] Hemoglobin measurementOrdere d By: Teri Garcia on 09-10-2024 Hemoglobin (Bld) [Mass/Vol] 13.6 g/dL 12.0-15.0 [facility] Immature granulocytes/100 WB C Auto (Bld)Ordered By: Teri Garcia on 09-10-2024 Immature granulocytes/100 WBC (Bld) 0.400 % 0.0-0.9 [facility] Comment on above: IG% - Immature Granu locytes (promyelocytes, myelocytes and metamyelocytes) > 1% indicates that a LEFT SHIFT is Present. International normalized rat io (INR) calculationOrdered By: Teri Garcia on 09-10-2024 INR Coag (Bld) [Relative time] 2.4 {INR} [facility] Ketones Test strip Ql (U)Ord ered By: Teri Garcia on 09-10-2024 Ketones Ql (U) Negative Negative [facility] MCV (mean corpuscular volume ) determinationOrdered By: Teri Garcia on 09-10-2024 MCV (RBC) [Entitic vol] 93.9 fL 81-99 [facility] Mean corpuscular hemoglobin (MCH) determinationOrdered By: Teri Garcia 09-10-2024 MCH (RBC) [Entitic mass] 30.6 pg 27.0-32.0 [facility] Mean corpuscular hemoglobin concentration (MCHC) determinationOrdered By: Teri Garcia on 09-10-2024 MCHC (RBC) [Mass/Vol] 32.6 g/dL 32-36 [facility] Mean platelet volume determi nationOrdered By: Teri Garcia on 09-10-2024 Platelet mean volume (Bld) [Entitic vol] 10.4 fL 6.2-12.0 [facility] Microscopic analysis of urin e for red blood cells (RBC)Ordered By: Teri Garcia on 09-10-2024 Microscopic analysis of urine for red blood cells (RBC) 0 SEEN /hpf 0-5 [facility] Monocyte percentageOrdered B y: Teir Garcia on 09-10-2024 Monocytes/100 WBC (Bld) 9.1 % 0-10 [facility] Mucus LM Ql (Urine sed)Order ed By: Teri Garcia on 09-10-2024 Mucus Ql (Urine sed) 0 SEEN /hpf [facility] Neutrophil percentageOrdered By: Teri Garcia on 09-10-2024 Neutrophils/100 WBC (Bld) 72.3 % High 47-70 [facility] Nitrite Test strip Ql (U)Ord ered By: Teri Garcia on 09-10-2024 Nitrite Ql (U) Negative Negative [facility] Nucleated red blood cell per centageOrdered By: Teri Garcia on 09-10-2024 Nucleated RBC/100 WBC (Bld) [Ratio] 0 % 0-5 [facility] Platelet countOrdered By: Adam Garcia on 09-10-2024 Platelets (Bld) [#/Vol] 269 10*3/uL 150-450 [facility] Potassium measurement (mass/ volume)Ordered By: Teri Garcia on 09-10-2024 Potassium (Unsp spec) [Mass/Vol] 4.4 mmol/L 3.3-5.1 [facility] Comment on above: Hemolysis present, R esults could be affected. Protein Test strip Ql (U)Ord ered By: Teri Garcia on 09-10-2024 Protein Ql (U) 30 mg/dl High Negative [facility] Prothrombin timeOrdered By: Teri Garcia on 09-10-2024 PT Coag (PPP) [Time] 26.4 s High 11.7-14.9 [facility] RBC Auto (Bld) [#/Vol]Ordere d By: Teri Garcia on 09-10-2024 RBC (Bld) [#/Vol] 4.44 10*6/uL 4.2-5.4 [facility] Serum creatinine measurement (mass/volume)Ordered By: Teri Garcia on 09-10-2024 Creatinine [Mass/Vol] 1.05 mg/dL 0.70-1.20 [facility] Serum glucose measurement (m ass/volume)Ordered By: Teri Garcia on 09-10-2024 Glucose [Mass/Vol] 131 mg/dL High 70-99 [facility] Serum or plasma calcium viktoria urement (mass/volume)Ordered By: Teri Garcia on 09-10-2024 Calcium [Mass/Vol] 8.7 mg/dL 7.6-11.0 [facility] Serum or plasma urea nitroge n measurement (mass/volume)Ordered By: Teri Garcia on 09-10-2024 Urea nitrogen [Mass/Vol] 37 mg/dL High 4-19 [facility] Sodium levelOrdered By: Ollie Garcia on 09-10-2024 Sodium [Moles/Vol] 137 mmol/L 133-145 [facility] Squamous epithelial cells de tection in urine sediment by light microscopyOrdered By: Teri Garcia on 09-10-2024 Epithelial cells.squamous LM Ql (Urine sed) 0-5 SEEN /hpf 5-10 [facility] Troponin T.cardiac [Mass/vol ume] in Serum or Plasma by High sensitivity methodOrdered By: Teri Garcia on 09-10-2024 Troponin T.cardiac High sensitivity method [Mass/Vol] 18 ng/L High <14 [facility] Urine clarityOrdered By: Lashaun Garcia on 09-10-2024 Clarity (U) Clear Clear [facility] Urine color determinationOrd ered By: Teri Garcia on 09-10-2024 Color (U) Straw Yellow [facility] Urine glucose detectionOrder ed By: Teri Garcia on 09-10-2024 Glucose Ql (U) Normal mg/dl Normal [facility] Urine leukocyte esterase det ection by dipstickOrdered By: Teri Garcia on 09-10-2024 Leukocyte esterase Test strip Ql (U) 500 /ul High Negative [facility] Urine pHOrdered By: Teri romero on 09-10-2024 pH (U) 5.0 [pH] 5.0 - 8.0 [facility] Urine sediment bacteria coun t by microscopy (number/high power field)Ordered By: Teri Garcia on 09-10-2024 Bacteria LM.HPF (Urine sed) [#/Area] RARE /hpf None Seen [facility] Urine specific gravity measu rementOrdered By: Teri Garcia on 09-10-2024 Specific gravity (U) [Rel density] 1.010 1.002-1.030 [facility] Urine urobilinogen measureme ntOrdered By: Teri Garcia on 09-10-2024 Urobilinogen Ql (U) Normal mg/dl Normal [facility] White blood cell (WBC) count Ordered By: Teri Garcia on 09-10-2024 WBC (Bld) [#/Vol] 11.5 10*3/uL High 4.4-11.0 [facility] White blood cell countOrdere d By: Teri Garcia on 09-10-2024 White blood cell count 10-25 SEEN /hpf 0-5 [facility] Absolute lymphocyte countOrd ered By: Anoop Blackmon on 09-08-2024 Lymphocytes Auto (Unsp spec) [#/Vol] 2.21 10*3/uL 0.83-4.51 [facility] Absolute neutrophil countOrd ered By: Anoop Blackmon on 09-08-2024 Neutrophils (Bld) [#/Vol] 10.3 10*3/uL High 2.0-7.7 [facility] Anion gap in Serum or Plasma Ordered By: Anoop Blackmon on 09-08-2024 Anion gap [Moles/Vol] 11 mmol/L 5-15 [facility] Automated lymphocyte count a s percentage of total leukocytesOrdered By: Anoop Blackmon on 09-08-2024 Lymphocytes/100 WBC Auto (Unsp spec) 16.2 % Low 19-41 [facility] BUN/creatinine ratioOrdered By: Anooppierce Blackmon on 09-08-2024 Urea nitrogen/Creatinine [Mass ratio] 35.2 mg/mg High 10-20 [facility] Basophil percentageOrdered B y: Anoop Blackmon on 09-08-2024 Basophils/100 WBC (Bld) 0.2 % 0-1 [facility] Carbon dioxide, total [Moles /volume] in Central venous bloodOrdered By: Anoop Blackmon on 09-08-2024 CO2 [Moles/Vol] 22.4 mmol/L 21.0-32.0 [facility] Chloride assayOrdered By: [facility] Neymar on 09-08-2024 Chloride [Moles/Vol] 105 mmol/L 98-108 [facility] Eosinophil percentageOrdered By: Anooppierce Blackmon on 09-08-2024 Eosinophils/100 WBC (Bld) 0.7 % 0-5 [facility] Erythrocyte distribution wid th ratioOrdered By: Anoop Blackmon on 09-08-2024 Erythrocyte distribution width (RBC) [Ratio] 13.2 % 11.6-14.6 [facility] Erythrocyte distribution wid th standard deviationOrdered By: Anooppierce Blackmon on 09-08-2024 Erythrocyte distribution width (RBC) [Ratio] 45.2 fl High 35.1-43.9 [facility] Glomerular filtration rate ( GFR) estimation/1.73 sq m using serum, plasma, or whole bOrdered By: Anooppierce Blackmon on 09-08-2024 GFR/1.73 sq M.predicted among non-blacks MDRD (S/P/Bld) [Vol rate/Area] 54 mL/min/{1.73_m2} Low >60 [facility] Comment on above: mL/min/1.73m2 CKD-EP I Creatinine Equation (2020) Hematocrit Auto (Bld) [Volum e fraction]Ordered By: Anooppierce Blackmon on 09-08-2024 Hematocrit (Bld) [Volume fraction] 41.4 % 37-47 [facility] Hemoglobin measurementOrdere d By: Anooppierce Blackmon on 09-08-2024 Hemoglobin (Bld) [Mass/Vol] 13.8 g/dL 12.0-15.0 [facility] Immature granulocytes/100 WB C Auto (Bld)Ordered By: Anooppierce Blackmon on 09-08-2024 Immature granulocytes/100 WBC (Bld) 0.400 % 0.0-0.9 [facility] Comment on above: IG% - Immature Granu locytes (promyelocytes, myelocytes and metamyelocytes) > 1% indicates that a LEFT SHIFT is Present. International normalized rat io (INR) calculationOrdered By: Anooppierce Blackmon on 09-08-2024 INR Coag (Bld) [Relative time] 2.9 {INR} [facility] MCV (mean corpuscular volume ) determinationOrdered By: Anoop Blackmon on 09-08-2024 MCV (RBC) [Entitic vol] 94.1 fL 81-99 [facility] Mean corpuscular hemoglobin (MCH) determinationOrdered By: [facility] on 09-08-2024 MCH (RBC) [Entitic mass] 31.4 pg 27.0-32.0 [facility] Mean corpuscular hemoglobin concentration (MCHC) determinationOrdered By: Anooppierce Blackmon on 09-08-2024 MCHC (RBC) [Mass/Vol] 33.3 g/dL 32-36 [facility] Mean platelet volume determi nationOrdered By: Anooppierce Blackmon on 09-08-2024 Platelet mean volume (Bld) [Entitic vol] 10.8 fL 6.2-12.0 [facility] Monocyte percentageOrdered B y: Anooppierce Blackmon on 09-08-2024 Monocytes/100 WBC (Bld) 6.6 % 0-10 [facility] Neutrophil percentageOrdered By: [facility] Neymar on 09-08-2024 Neutrophils/100 WBC (Bld) 75.9 % High 47-70 [facility] Nucleated red blood cell per centageOrdered By: Anooppierce Blackmon on 09-08-2024 Nucleated RBC/100 WBC (Bld) [Ratio] 0 % 0-5 [facility] Platelet countOrdered By: [facility] 09-08-[facility] Platelets (Bld) [#/Vol] 326 10*3/uL 150-450 [facility] Potassium measurement (mass/ volume)Ordered By: Anooppierce Blackmon on 09-08-2024 Potassium (Unsp spec) [Mass/Vol] 4.7 mmol/L 3.3-5.1 [facility] Prothrombin timeOrdered By: Anoop Blackmon on 09-08-2024 PT Coag (PPP) [Time] 30.7 s High 11.7-14.9 [facility] RBC Auto (Bld) [#/Vol]Ordere d By: Anopo Blackmon on 09-08-2024 RBC (Bld) [#/Vol] 4.40 10*6/uL 4.2-5.4 [facility] Serum creatinine measurement (mass/volume)Ordered By: Anoop Blackmon on 09-08-2024 Creatinine [Mass/Vol] 1.00 mg/dL 0.70-1.20 [facility] Serum glucose measurement (m ass/volume)Ordered By: Anoop Blackmon on 09-08-2024 Glucose [Mass/Vol] 149 mg/dL High 70-99 [facility] Serum or plasma calcium viktoria urement (mass/volume)Ordered By: Anoop Blackmon on 09-08-2024 Calcium [Mass/Vol] 8.9 mg/dL 7.6-11.0 [facility] Serum or plasma urea nitroge n measurement (mass/volume)Ordered By: Anoop Blackmon on 09-08-2024 Urea nitrogen [Mass/Vol] 35 mg/dL High 4-19 [facility] Sodium levelOrdered By: Anoop Blackmon on 09-08-2024 Sodium [Moles/Vol] 138 mmol/L 133-145 [facility] White blood cell (WBC) count Ordered By: Anoop Blackmon on 09-08-2024 WBC (Bld) [#/Vol] 13.6 10*3/uL High 4.4-11.0 [facility] International normalized rat io (INR) calculationOrdered By: Cesar Cole on 08-18-2024 INR Coag (Bld) [Relative time] 2.6 {INR} [facility] Prothrombin timeOrdered By: Cesar Cole on 08-18-2024 PT Coag (PPP) [Time] 28.1 s High 11.7-14.9 [facility] International normalized rat io (INR) calculationOrdered By: Cesar Cole on 07-19-2024 INR Coag (Bld) [Relative time] 2.2 {INR} [facility] Prothrombin timeOrdered By: Cesar Douglas on 07-19-2024 PT Coag (PPP) [Time] 25.3 s High 11.7-14.9 [facility] Cardiology Visit Reporton Cardiology Visit Report [facility] [address] [place] [address] OFFICE VISIT Date of Service: 07/01/24 MR#: [id number] Acct: [id number] Name: EZRA GONZALEZ Rep #: [id number] : 1935 Provider: Dr. Cesar Cole MD Age/Sex: 89/F Location: [facility] Status: Signed HPI HPI History of Present Illness Details: Ezra Gonzalez is an 89-year-old lady with a previous history of coronary artery disease status post previous angioplasty and stenting in 2006. She also in 2011 developed persistent atrial fibrillation and underwent atrial fibrillation ablation with isolation of the pulmonary veins. In 2015 she underwent a pharmacologic stress test which demonstrated a fixed defect in the apical and apical lateral segments. Her ejection fraction was noted to be preserved. She did present in November 2019 and underwent a cardiac catheterization which demonstrated moderate disease involving the left anterior descending artery and circumflex artery distribution and mild disease noted in the right coronary artery. Coronary calcification was present medical therapy was recommended. She has reverted back to atrial fibrillation. She is a reside at [facility]. From a cardiac standpoint, patient is doing well. She does not have any chest discomfort/heaviness/ tightness. She does not have any worsening symptoms of shortness of breath. She does not have any orthopnea. She denies PND. She does not have any symptoms of congestive heart failure. She does not have any palpitations that she is aware of. She does not have any lightheadedness or dizziness. She does not have any near-syncope or syncope. She does not have any lower extremity edema. She does not have any symptoms of claudication. Intake Vital Signs 05/15/23 09:01 05/10/24 14:35 07/01/24 10:38 Height 5 ft 3 in 5 ft 3 in 5 ft 3 in Weight: 174 lb BMI 30.8 BP 184/85 H Blood Pressure Location Lt brachial Position Sitting Respiration 16 Pulse 60 Pulse Source Monitor Intake Visit Reasons: 1 Y FU Pulmonary Function Technician Required: No Accompanied by: Self Is patient in pain?: No Allergies latex Allergy (Verified 07/01/24 10:44) rash amiodarone Adverse Reaction (Severe, Verified 07/01/24 10:44) Hair falling out in gobs atorvastatin (From Lipitor) Adverse Reaction (Verified 07/01/24 10:44) myalgia codeine Adverse Reaction (Verified 07/01/24 10:44) Nausea meperidine (From Demerol) Adverse Reaction (Verified 07/01/24 10:44) Nausea/Vom/Diarrhea rosuvastatin (From Crestor) Adverse Reaction (Verified 07/01/24 10:44) myalgia Medications ???Medication ???Instructions ???Recorded ???Confirmed ???Type multivitamin 1 cap PO DAILY 12/10/19 07/01/24 H istory metoprolol succinate 25 mg 25 mg PO BID #90 tabs 05/16/2206/22 Rx tablet,extended release 24 hr omeprazole 20 mg capsule,delayed 20 mg PO DAILY reflux 11/14/2206/22 History release atorvastatin 40 mg tablet 40 mg PO QHS 01/20/23 07/01/24 His tory ascorbic acid (vitamin C) 250 mg 250 mg PO DAILY 05/19/23 07/01/24 History tablet diphenhydramine HCl 25 mg tablet 25 mg PO QHS PRN 05/19/23 07/01/24 History (Allergy (diphenhydramine)) warfarin 2.5 mg tablet 2.5 mg PO .QTUWEFR #90 tabs 07/01/24 Rx warfarin 3 mg tablet 3 mg PO .QMOTHSASU #90 tabs 07/01/24 Rx donepezil 10 mg tablet 10 mg PO QHS #30 tabs 05/10/2406/22 Rx lamotrigine 25 mg tablet 50 mg (2 x 25 mg) PO BID #120 tabs 05/10/24 07/01/24 Rx amlodipine 10 mg tablet 10 mg PO QDAY #90 tabs 07/01/24 Rx Have you fallen in the past year?: No PFSH Medical History Closed fracture of right distal humerus Longstanding persistent atrial fibrillation COVID-19 virus detected (11/2020) Fatigue Closed fracture of inferior pubic ramus Lumbar vertebral fracture History of ST elevation myocardial infarction (STEMI) (02/14/07) Chronic diastolic (congestive) heart failure Old lateral wall myocardial infarction (02/14/07) Persistent atrial fibrillation Chronic kidney disease (CKD) Spinal stenosis Osteoarthritis Atherosclerotic heart disease of [place] coronary artery without angina pectoris Type 2 diabetes mellitus Essential (primary) hypertension Hyperlipidemia Obesity Pleural effusion on right (09/2019) Paroxysmal atrial fibrillation Surgical History History of kyphoplasty ( 05/2020) History of left heart catheterization (12/27/19) History of left hip replacement History of repair of rotator cuff History of knee replacement History of coronary artery stent placement (02/14/07) History of radiofrequency ablation procedure for cardiac arrhythmia (2011) F (more content not included)... Normal [facility] International normalized rat io (INR) calculationOrdered By: Chucky Ochoa on 06-16-2024 INR Coag (Bld) [Relative time] 2.4 {INR} [facility] Prothrombin timeOrdered By: Chucky Ochoa on 06-16-2024 PT Coag (PPP) [Time] 26.6 s High 11.7-14.9 [facility] Absolute lymphocyte countOrd ered By: Chucky Ochoa on 06-09-2024 Lymphocytes Auto (Unsp spec) [#/Vol] 2.06 10*3/uL 0.83-4.51 [facility] Absolute neutrophil countOrd ered By: Chucky Ochoa on 06-09-2024 Neutrophils (Bld) [#/Vol] 5.6 10*3/uL 2.0-7.7 [facility] Anion gap in Serum or Plasma Ordered By: Chucky Ochoa on 06-09-2024 Anion gap [Moles/Vol] 13 mmol/L 5-15 [facility] Automated lymphocyte count a s percentage of total leukocytesOrdered By: Chucky Ochoa on 06-09-2024 Lymphocytes/100 WBC Auto (Unsp spec) 23.0 % 19-41 [facility] BUN/creatinine ratioOrdered By: Chucky Ochoa on 06-09-2024 Urea nitrogen/Creatinine [Mass ratio] 21.5 mg/mg High 10-20 [facility] Basophil percentageOrdered B y: Chucky Ochoa on 06-09-2024 Basophils/100 WBC (Bld) 0.6 % 0-1 [facility] Carbon dioxide, total [Moles /volume] in Central venous bloodOrdered By: Chucky Ochoa on 06-09-2024 CO2 [Moles/Vol] 22.4 mmol/L 21.0-32.0 [facility] Chloride assayOrdered By: oCsta Ochoa on 06-09-2024 Chloride [Moles/Vol] 108 mmol/L 98-108 [facility] Eosinophil percentageOrdered By: Chucky Ochoa on 06-09-2024 Eosinophils/100 WBC (Bld) 4.8 % 0-5 [facility] Erythrocyte distribution wid th ratioOrdered By: Chucky Ochoa on 06-09-2024 Erythrocyte distribution width (RBC) [Ratio] 14.6 % 11.6-14.6 [facility] Erythrocyte distribution wid th standard deviationOrdered By: Chucky Ochoa on 06-09-2024 Erythrocyte distribution width (RBC) [Entitic vol] 49.2 fL High 35.1-43.9 [facility] Erythrocyte distribution width (RBC) [Ratio] 49.2 fl High 35.1-43.9 [facility] GFR/1.73 sq M.predicted sonia g non-blacks MDRD (S/P/Bld) [Vol rate/Area]Ordered By: Chucky Ochoa on 06-09-2024 Estimated GFR (MDRD) Non-Af Amer 59 Low >60 [facility] Comment on above: mL/min/1.73m2 CKD-EP I Creatinine Equation (2020) Glomerular filtration rate ( GFR) estimation/1.73 sq m using serum, plasma, or whole bOrdered By: Chucky Ochoa on 06-09-2024 GFR/1.73 sq M.predicted among non-blacks MDRD (S/P/Bld) [Vol rate/Area] 59 mL/min/{1.73_m2} Low >60 [facility] Comment on above: mL/min/1.73m2 CKD-EP I Creatinine Equation (2020) Hematocrit Auto (Bld) [Volum e fraction]Ordered By: Chucky Ochoa on 06-09-2024 Hematocrit (Bld) [Volume fraction] 38.3 % 37-47 [facility] Hemoglobin A1c percentageOrd ered By: Chucky Ochoa on 06-09-2024 HbA1c (Bld) [Mass fraction] 6.5 % >5.7 [facility] Hemoglobin measurementOrdere d By: Chucky Ochoa on 06-09-2024 Hemoglobin (Bld) [Mass/Vol] 12.4 g/dL 12.0-15.0 [facility] Immature granulocytes/100 WB C Auto (Bld)Ordered By: Chucky Ochoa on 06-09-2024 Immature granulocytes/100 WBC (Bld) 0.200 % 0.0-0.9 [facility] Comment on above: IG% - Immature Granu locytes (promyelocytes, myelocytes and metamyelocytes) > 1% indicates that a LEFT SHIFT is Present. Lymphocytes Auto (Unsp spec) [#/Vol]Ordered By: Chucky Ochoa on 06-09-2024 Lymphocytes (Bld) [#/Vol] 2.06 10*3/uL 0.83-4.5 1 [facility] Lymphocytes/100 WBC Auto (Un sp spec)Ordered By: Chucky Ochoa on 06-09-2024 Lymphocytes/100 WBC (Bld) 23.0 % 19-41 [facility] MCV (mean corpuscular volume ) determinationOrdered By: Chucky Ochoa on 06-09-2024 MCV (RBC) [Entitic vol] 91.8 fL 81-99 [facility] Mean corpuscular hemoglobin (MCH) determinationOrdered By: Chucky Ochoa on 06-09-2024 MCH (RBC) [Entitic mass] 29.7 pg 27.0-32.0 [facility] Mean corpuscular hemoglobin concentration (MCHC) determinationOrdered By: Chucky Ochoa on 06-09-2024 MCHC (RBC) [Mass/Vol] 32.4 g/dL 32-36 [facility] Mean platelet volume determi nationOrdered By: Chucky Ochoa on 06-09-2024 Platelet mean volume (Bld) [Entitic vol] 10.2 fL 6.2-12.0 [facility] Monocyte percentageOrdered B y: Chucky Ochoa on 06-09-2024 Monocytes/100 WBC (Bld) 8.6 % 0-10 [facility] Neutrophil percentageOrdered By: Chucky Ochoa on 06-09-2024 Neutrophils/100 WBC (Bld) 62.8 % 47-70 [facility] Nucleated red blood cell per centageOrdered By: Chucky Ochoa on 06-09-2024 Nucleated RBC/100 WBC (Bld) [Ratio] 0 % 0-5 [facility] Platelet countOrdered By: Costa Ochoa on 06-09-2024 Platelets (Bld) [#/Vol] 323 10*3/uL 150-450 [facility] Potassium (Unsp spec) [Mass/ Vol]Ordered By: Chucky Ochoa on 06-09-2024 Potassium [Moles/Vol] 4.7 mmol/L 3.3-5.1 [facility] Potassium measurement (mass/ volume)Ordered By: Chucky Ochoa on 06-09-2024 Potassium (Unsp spec) [Mass/Vol] 4.7 mmol/L 3.3-5.1 [facility] RBC Auto (Bld) [#/Vol]Ordere d By: Chucky Ochoa on 06-09-2024 RBC (Bld) [#/Vol] 4.17 10*6/uL Low 4.2-5.4 [facility] Serum creatinine measurement (mass/volume)Ordered By: Chucky Ochoa on 06-09-2024 Creatinine [Mass/Vol] 0.94 mg/dL 0.70-1.20 [facility] Serum glucose measurement (m ass/volume)Ordered By: Chucky Ochoa on 06-09-2024 Glucose [Mass/Vol] 137 mg/dL High 70-99 [facility] Serum or plasma calcium viktoria urement (mass/volume)Ordered By: Chucky Ochoa on 06-09-2024 Calcium [Mass/Vol] 8.9 mg/dL 7.6-11.0 [facility] Serum or plasma urea nitroge n measurement (mass/volume)Ordered By: Chucky Ochoa on 06-09-2024 Urea nitrogen [Mass/Vol] 20 mg/dL High 4-19 [facility] Sodium levelOrdered By: Dru Ochoa on 06-09-2024 Sodium [Moles/Vol] 143 mmol/L 133-145 [facility] White blood cell (WBC) count Ordered By: Chucky Ochoa on 06-09-2024 WBC (Bld) [#/Vol] 9.0 10*3/uL 4.4-11.0 [facility] INR Coag (BldC) [Relative ti me]Ordered By: Cesar Cole on 05-19-2024 INR Coag (Bld) [Relative time] 2.9 {INR} [facility] Comment on above: Critical Value > 4.0 International normalized rat io (INR) measurement by fingerstickOrdered By: Cesar Cole on 05-19-2024 INR Coag (BldC) [Relative time] 2.9 [facility] Comment on above: Critical Value > 4.0 PT Coag (Bld) [Time]Ordered By: Cesar Cole on 05-19-2024 Bedside Prothrombin Time 30.4 SEC High 11.7-14.9 [facility] Whole blood prothrombin time Ordered By: Cesar Cole on 05-19-2024 PT Coag (Bld) [Time] 30.4 s High 11.7-14.9 [facility] Serum or plasma lamotrigine measurement (mass/volume)Ordered By: Anant Juarez on 05-12-2024 lamoTRIgine [Mass/Vol] 1.8 ug/mL Low 2.0-20.0 [facility] Comment on above: Detection Limit = 1. 0Performed at: [facility] [id number] Director: Brandon Wells MD, Phone: [phone] Venous blood ammonia measure mentOrdered By: Anant Juarez on 05-12-2024 Ammonia (P) [Moles/Vol] 17.0 umol/L 11-32 [facility] lamoTRIgine [Mass/Vol]Ordere d By: Anant Juarez on 05-12-2024 Lamotrigine (Lamictal) Level 1.8 ug/mL Low 2.0-20.0 [facility] Comment on above: Detection Limit = 1. 0Performed at: [facility] [id number] [place], [place] [id number] Director: Brandon Wells MD, Phone: [phone] Neurology Visit Reporton Neurology Visit Report [facility] [address] [place] [id number] OFFICE VISIT Date of Service: 05/10/24 MR#: [id number] Acct: [id number] Name: EZRA GONZALEZ Rep #: [id number] : 1935 Provider: Dr. Anant baez MD Age/Sex: 88/F [place] [facility] [place]: Signed HPI HPI Chief Complaint: Details: Interim History: Ezra returns for follow-up visit. She has a history of hypertension, hyperlipidemia, atrial fibrillation, chronic renal insufficiency, myocardial infarction (2006; coronary artery stent placement (2009), left hip replacement (2012), bilateral knee replacements (2016), diabetes mellitus and lumbar L1 compression fracture status post kyphoplasty. At her initial evaluation, her son was available by telephone during her office visit. She now resides in an assisted care facility. She has been exhibiting memory difficulty since at least 2021. She has a tendency to forget conversations and to repeat conversations. 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 She has become lost while driving in familiar places. She has had word finding difficulty. She had difficulty performing cooking and no longer does so. She is independent in activities such as dressing and bathing. Her cognitive deficits gradually worsened over time however no further worsening has been noticed over recent months and she exhibits improvement on her Mini-Mental status exam score today compared to her score in 2022. She takes donepezil. She has had some gait imbalance since 2020. She had a fall in 2020 and sustained a lumbar L1 compression fracture and has had chronic low back pain. She underwent cement kyphoplasty in 2020 for the lumbar compression fracture however her low back pain persisted. Her low back pain occurs when standing for longer than 5 minutes and will diminish significantly if she sits. She denied having pain in the lower extremities. She does not experience claudication type discomfort in the lower extremities when she ambulates. She denied having joint pains in the lower extremities. She denied having numbness, weakness, vision change, hearing loss, dizziness, lightheadedness or neck pain. She has not had a tremor or swallowing difficulty. She has at times been observed to exhibit a festinating gait. She had 2 further falls in 2022. She has had some urinary incontinence. She has depression. She has fatigue. She had another fall in May 2023; she had a right humerus fracture for which she underwent plate fixation. On 09/08/2022, she was noted to have aphasia. Her speech was described as garbled. She was brought to the emergency room. A head MRI had been done 2 days prior due to observation of increased confusion in the days preceding her emergency room presentation. The head MRI revealed revealed mild diffuse age-related cerebral atrophy and mild bilateral periventricular and subcortical white matter chronic small vessel ischemic disease however no acute stroke or other acute pathology was identified. A head and neck CTA revealed bilateral internal carotid artery stenosis in the petrous segments of the arteries secondary to calcification (moderate on the right (50-75%) and mild on the left (less than 50%)) and 50-69% stenosis of the left internal carotid artery. Her aphasia improved over the following 2 days. She was noncompliant with her warfarin therapy for her atrial fibrillation at the time that her speech difficulty in August 2022 occurred. She has since resumed taking warfarin as prescribed. Between 09/18/2022 and December 2022 she has had 3 further episodes of garbled speech/aphasia the last of which occurred in November 2022; episodes lasted about 1 hour each. Lamotrigine was initiated in December 2022 for suspected complex partial seizures and she has had only 1 further episode of garbled speech/aphasia since initiation of lamotrigine and this occurred in May 2023. Aspirin 81 mg daily was initiated following her episode in November 2022 however she subsequently discontinued aspirin. Physical therapy was ordered in 2022. Mini-Mental status exam score was 27/30 in August 2022 and 28/30 in December 2022. Physical Exam: Neuro: The patient is awake and alert and responds appropriately; Mini-Mental status exam score is 30/30 Neck: No bruits Heart: Irregularly irregular Supplemental Info Lipid profile, CBC, CMP (06/26/2022): Cholesterol 163 (normal), triglycerides 178 (normal), HDL 47 (normal), LDL 80 (normal), VLDL 36 (normal), BUN 20 (high), creatinine 1.11 (high), EGFR 49 (low), glucose 142 (high) B12, vitamin D (08/08/2022): Normal. Cervical spine CT (08/11/2020): FINDINGS: There is no evidence of fracture or dislocation in the cervical spine. The dens is intact. There is straightening of the normal cervical lordosis which may be due to paraspinal muscle spasm or may be positional in nature. Th (more content not included)... Normal [facility] INR Coag (BldC) [Relative ti me]Ordered By: Cesar Cole on 05-05-2024 INR Coag (Bld) [Relative time] 2.5 {INR} [facility] Comment on above: Critical Value > 4.0 PT Coag (Bld) [Time]Ordered By: Cesar Cole on 05-05-2024 Bedside Prothrombin Time 26.9 SEC High 11.7-14.9 [facility] International normalized rat io (INR) calculationOrdered By: Chucky Ochoa on 04-28-2024 INR Coag (Bld) [Relative time] 3.4 {INR} [facility] Prothrombin timeOrdered By: Chucky Ochoa on 04-28-2024 PT Coag (PPP) [Time] 35.4 s High 11.7-14.9 [facility] International normalized rat io (INR) calculationOrdered By: Chucky Ochoa on 04-14-2024 INR Coag (Bld) [Relative time] 3.0 {INR} [facility] Prothrombin timeOrdered By: Chucky Ochoa on 04-14-2024 PT Coag (PPP) [Time] 31.4 s High 11.7-14.9 [facility] Blood urea nitrogen (BUN)/cr eatinine ratioOrdered By: Chucky Ochoa on 04-09-2024 Urea nitrogen/Creatinine [Mass ratio] 13.5 mg/mg 10- [facility] Carbon dioxide measurementOr dered By: Chucky Ochoa on 04-09-2024 CO2 [Moles/Vol] 28.0 mmol/L 21.0-32.0 [facility] Chloride measurementOrdered By: Chucky Ochoa on 04-09-2024 Chloride [Moles/Vol] 106 mmol/L 98-107 [facility] Estimated glomerular filtrat ion rate (GFR) AmericanOrdered By: Chucky Ochoa on 04-09-2024 Estimated GFR (MDRD) Amer 70 mL/min >60 [facility] Comment on above: GFR Calc Glomerular filtration rate ( GFR) estimationOrdered By: Chucky Ochoa on 04-09-2024 Estimated GFR (MDRD) Non-Af Amer 58 mL/min Low >60 [facility] Comment on above: Non- GFR Calc Glucose measurementOrdered B y: Chucky Ochoa on 04-09-2024 Glucose [Mass/Vol] 116 mg/dL High 74-106 [facility] Comment on above: Fasting Glucose resu lt from 100 to 125 mg/dL suggests IMPAIRED HOMEOSTASIS per A.D.A. criteria. Potassium measurementOrdered By: Chucky Ochoa on 04-09-2024 Potassium [Moles/Vol] 4.3 mmol/L 3.5-5.1 [facility] Serum anion gap measurementO rdered By: Chucky Ochoa on 04-09-2024 Anion gap [Moles/Vol] 3 mmol/L Low 5-15 [facility] Serum or plasma calcium viktoria urement (mass/volume)Ordered By: Chucky Ochoa on 04-09-2024 Calcium [Mass/Vol] 8.8 mg/dL 8.5-10.1 [facility] Serum or plasma creatinine m easurement (mass/volume)Ordered By: Chucky Ochoa on 04-09-2024 Creatinine [Mass/Vol] 0.96 mg/dL 0.55-1.02 [facility] Comment on above: The validity of the calculated GFR & GFRAA in patients over 70 years has not been determined. Clinical correlation is essential. Serum or plasma urea nitroge n measurement (mass/volume)Ordered By: Chucky Ochoa on 04-09-2024 Urea nitrogen [Mass/Vol] 13 mg/dL 7-18 [facility] Sodium levelOrdered By: Dru Ochoa on 04-09-2024 Sodium [Moles/Vol] 137 mmol/L 136-145 [facility] International normalized rat io (INR) calculationOrdered By: Chucky Ochoa on 04-06-2024 INR Coag (Bld) [Relative time] 2.6 {INR} [facility] Prothrombin timeOrdered By: Chucky Ochoa on 04-06-2024 PT Coag (PPP) [Time] 28.8 s High 11.7-14.9 [facility] INR Coag (BldC) [Relative ti me]Ordered By: Chucky Ochoa on 04-05-2024 INR Coag (Bld) [Relative time] 3.5 {INR} [facility] Comment on above: Critical Value > 4.0 PT Coag (Bld) [Time]Ordered By: Chucky Ochoa on 04-05-2024 Bedside Prothrombin Time 35.4 SEC High 11.7-14.9 [facility] International normalized rat io (INR) calculationOrdered By: Chucky Ochoa on 03-29-2024 INR Coag (Bld) [Relative time] 1.5 {INR} [facility] Prothrombin timeOrdered By: Chucky Ochoa on 03-29-2024 PT Coag (PPP) [Time] 17.9 s High 11.7-14.9 [facility] INR Coag (BldC) [Relative ti me]Ordered By: Chucky Ochoa on 03-26-2024 INR Coag (Bld) [Relative time] 3.4 {INR} [facility] Comment on above: Critical Value > 4.0 PT Coag (Bld) [Time]Ordered By: Chucky Ochoa on 03-26-2024 Bedside Prothrombin Time 34.4 SEC High 11.7-14.9 [facility] INR Coag (BldC) [Relative ti me]Ordered By: Chucky Ochoa on 03-25-2024 INR Coag (Bld) [Relative time] 3.8 {INR} [facility] Comment on above: Critical Value > 4.0 PT Coag (Bld) [Time]Ordered By: Chucky Ochoa on 03-25-2024 Bedside Prothrombin Time 37.8 SEC High 11.7-14.9 [facility] International normalized rat io (INR) calculationOrdered By: Chucky Ochoa on 03-19-2024 INR Coag (Bld) [Relative time] 3.0 {INR} [facility] Prothrombin timeOrdered By: Chucky Ochoa on 03-19-2024 PT Coag (PPP) [Time] 30.7 s High 11.7-14.9 [facility] INR Coag (BldC) [Relative ti me]Ordered By: Chucky Ochoa on 03-17-2024 INR Coag (Bld) [Relative time] 3.3 {INR} [facility] Comment on above: Critical Value > 4.0 PT Coag (Bld) [Time]Ordered By: Chucky Ochoa on 03-17-2024 Bedside Prothrombin Time 34.2 SEC High 11.7-14.9 [facility] INR Coag (BldC) [Relative ti me]Ordered By: Chucky Ochoa on 03-10-2024 INR Coag (Bld) [Relative time] 2.4 {INR} [facility] Comment on above: Critical Value > 4.0 PT Coag (Bld) [Time]Ordered By: Chucky Ochoa on 03-10-2024 Bedside Prothrombin Time 25.4 SEC High 11.7-14.9 [facility] International normalized rat io (INR) calculationOrdered By: Chucky Ochoa on 03-08-2024 INR Coag (Bld) [Relative time] 1.8 {INR} [facility] Prothrombin timeOrdered By: Chucky Ochoa on 03-08-2024 PT Coag (PPP) [Time] 21.1 s High 11.7-14.9 [facility] INR Coag (BldC) [Relative ti me]Ordered By: Chucky Ochoa on 03-04-2024 INR Coag (Bld) [Relative time] 1.8 {INR} [facility] Comment on above: Critical Value > 4.0 PT Coag (Bld) [Time]Ordered By: Chucky Ochoa on 03-04-2024 Bedside Prothrombin Time 20.2 SEC High 11.7-14.9 [facility] INR Coag (BldC) [Relative ti me]Ordered By: Chucky Ochoa on 02-05-2024 INR Coag (Bld) [Relative time] 2.2 {INR} [facility] Comment on above: Critical Value > 4.0 PT Coag (Bld) [Time]Ordered By: Chucky Ochoa on 02-05-2024 Bedside Prothrombin Time 22.8 SEC High 11.7-14.9 [facility] Lamotrigine (Lamictal) Level on 09-25-2023 LAMOTRIGINE 4.0 ug/mL Normal 2.0-20.0 [facility] Comment on above: Result Comment: Dete ction Limit = 1.0 Performed at: [address] [id number] [employer]emmer Operator: Brandon Wells MD, Phone: [phone] Performed By: #### L 503.5510, L100.0500, L3300.4400, L500.4050 #### [facility] [address] [place], [address] Ammoniaon 09-22-2023 Ammonia (P) [Moles/Vol] 13.0 umol/L Normal 11-32 [facility] Comment on above: Performed By: #### L 503.5510, L100.0500, L3300.4400, L500.4050 #### [facility] [address] [place], [address] CBC-Complete Blood Cnt No Di ffon 09-22-2023 Erythrocyte distribution width (RBC) [Ratio] 14.4 % Normal 11.6-14.6 [facility] Comment on above: Performed By: #### L 503.5510, L100.0500, L3300.4400, L500.4050 #### [facility] [address] [place], [address] Hematocrit (Bld) [Volume fraction] 41.1 % Normal 37-47 [facility] Comment on above: Performed By: #### L 503.5510, L100.0500, L3300.4400, L500.4050 #### [facility] [address] [place], [address] Hemoglobin (Bld) [Mass/Vol] 12.9 g/dL Normal 12.0-15.0 [facility] Comment on above: Performed By: #### L 503.5510, L100.0500, L3300.4400, L500.4050 #### [facility] [address] [place], [address] MCH (RBC) [Entitic mass] 28.3 pg Normal 27.0-32.0 [facility] Comment on above: Performed By: #### L 503.5510, L100.0500, L3300.4400, L500.4050 #### [facility] [address] [place], [address] MCHC (RBC) [Mass/Vol] 31.4 g/dL Low 32-36 [facility] Comment on above: Performed By: #### L 503.5510, L100.0500, L3300.4400, L500.4050 #### [facility] [address] [place], [address] MCV (RBC) [Entitic vol] 90.1 fL Normal 81-99 [facility] Comment on above: Performed By: #### L 503.5510, L100.0500, L3300.4400, L500.4050 #### [facility] [address] [place], [address] Platelet mean volume (Bld) [Entitic vol] 10.9 fL Normal 6.2-12.0 [facility] Comment on above: Performed By: #### L 503.5510, L100.0500, L3300.4400, L500.4050 #### [facility] [address] [place], [address] Platelets (Bld) [#/Vol] 402 10*3/uL Normal 150-450 [facility] Comment on above: Performed By: #### L 503.5510, L100.0500, L3300.4400, L500.4050 #### [facility] [address] [place], [address] RBC (Bld) [#/Vol] 4.56 10*6/uL Normal 4.2-5.4 [facility] Comment on above: Performed By: #### L 503.5510, L100.0500, L3300.4400, L500.4050 #### [facility] [address] [place], [address] RDW SD 47.4 fl High 35.1-43.9 [facility] Comment on above: Performed By: #### L 503.5510, L100.0500, L3300.4400, L500.4050 #### [facility] [address] [place], [address] WBC (Bld) [#/Vol] 8.5 10*3/uL Normal 4.4-11.0 [facility] Comment on above: Performed By: #### L 503.5510, L100.0500, L3300.4400, L500.4050 #### [facility] [address] [place], [address] Comprehensive Metabolic Prof [facility] 09-22-2023 Albumin [Mass/Vol] 3.5 g/dL Normal 3.2-5.0 [facility] Comment on above: Performed By: #### L 503.5510, L100.0500, L3300.4400, L500.4050 #### [facility] [address] [place], [address] Albumin/Globulin [Mass ratio] 1.0 {ratio} Normal 0.9-2.4 [facility] Comment on above: Performed By: #### L 503.5510, L100.0500, L3300.4400, L500.4050 #### [facility] [address] [place], [address] ALK P 105 U/L Normal 45-117 [facility] Comment on above: Performed By: #### L 503.5510, L100.0500, L3300.4400, L500.4050 #### [facility] [address] [place], [address] ALT [Catalytic activity/Vol] 14 U/L Normal 13-56 [facility] Comment on above: Performed By: #### L 503.5510, L100.0500, L3300.4400, L500.4050 #### [facility] [address] [place], [address] AST [Catalytic activity/Vol] 20 U/L Normal 15-37 [facility] Comment on above: Performed By: #### L 503.5510, L100.0500, L3300.4400, L500.4050 #### [facility] [address] [place], [address] Bilirubin [Mass/Vol] 0.30 mg/dL Normal 0.20-1.00 [facility] Comment on above: Result Comment: For patients on eltrombopag therapy, use of Dimension [place] TBIL is not recommended. Performed By: #### L 503.5510, L100.0500, L3300.4400, L500.4050 #### [facility] [address] [place], [address] BUN/CRE 14.9 RATIO Normal 10-20 [facility] Comment on above: Performed By: #### L 503.5510, L100.0500, L3300.4400, L500.4050 #### [facility] [address] [place], [address] CA,Total 9.2 mg/dL Normal 8.5-10.1 [facility] Comment on above: Performed By: #### L 503.5510, L100.0500, L3300.4400, L500.4050 #### [facility] [address] [place], [address] Chloride [Moles/Vol] 106 mmol/L Normal 98-107 [facility] Comment on above: Performed By: #### L 503.5510, L100.0500, L3300.4400, L500.4050 #### [facility] [address] [place], [address] CO2 [Moles/Vol] 29.0 mmol/L Normal 21.0-32.0 [facility] Comment on above: Performed By: #### L 503.5510, L100.0500, L3300.4400, L500.4050 #### [facility] [address] [place], [address] Creatinine [Mass/Vol] 1.21 mg/dL High 0.55-1.02 [facility] Comment on above: Result Comment: The validity of the calculated GFR GFRAA in patients over 70 years has not been determined. Clinical correlation is essential. Performed By: #### L 503.5510, L100.0500, L3300.4400, L500.4050 #### [facility] [address] [place], [address] EST GFR - AA 54 mL/min Low >60 [facility] Comment on above: Result Comment: Afri can Citizen Of [place] GFR Calc Performed By: #### L 503.5510, L100.0500, L3300.4400, L500.4050 #### [facility] [address] [place], [address] GAP 4 Low 5-15 [facility] Comment on above: Performed By: #### L 503.5510, L100.0500, L3300.4400, L500.4050 #### [facility] [address] [place], [address] GFR/1.73 sq M.predicted among non-blacks MDRD (S/P/Bld) [Vol rate/Area] 45 mL/min/{1.73_m2} Low >60 [facility] Comment on above: Result Comment: Non- GFR Calc Performed By: #### L 503.5510, L100.0500, L3300.4400, L500.4050 #### [facility] [address] [place], [address] Globulin (S) [Mass/Vol] 3.6 g/dL Normal 2.2-4.2 [facility] Comment on above: Performed By: #### L 503.5510, L100.0500, L3300.4400, L500.4050 #### [facility] [address] [place], [address] Glucose [Mass/Vol] 123 mg/dL High 74-106 [facility] Comment on above: Result Comment: Fast ing Glucose result from 100 to 125 mg/dL suggests IMPAIRED HOMEOSTASIS per A.D.A. criteria. Performed By: #### L 503.5510, L100.0500, L3300.4400, L500.4050 #### [facility] [address] [place], [address] Potassium [Moles/Vol] 5.5 mmol/L High 3.5-5.1 [facility] Comment on above: Performed By: #### L 503.5510, L100.0500, L3300.4400, L500.4050 #### [facility] [address] [place], [address] Sodium [Moles/Vol] 139 mmol/L Normal 136-145 [facility] Comment on above: Performed By: #### L 503.5510, L100.0500, L3300.4400, L500.4050 #### [facility] [address] [place], [address] T PROT 7.1 g/dL Normal 6.4-8.2 [facility] Comment on above: Performed By: #### L 503.5510, L100.0500, L3300.4400, L500.4050 #### [facility] [address] [place], [place], [address] Urea nitrogen [Mass/Vol] 18 mg/dL Normal 7-18 [facility] Comment on above: Performed By: #### L 503.5510, L100.0500, L3300.4400, L500.4050 #### [facility] [address] [place], [place], [address] Neurology Visit Reporton Neurology Visit Report [facility] [address] [place], [place] [address] OFFICE VISIT Date of Service: 09/22/23 MR#: [id number] Acct: [id number] Name: EZRA GONZALEZ Rep #: [id number] : 1935 Provider: Dr. Anant baez MD Age/Sex: 88/F [place] [facility] Status: Signed HPI HPI Chief Complaint: Details: Interim History: Ezra returns for follow-up visit. She has a history of hypertension, hyperlipidemia, atrial fibrillation, chronic renal insufficiency, myocardial infarction (2006, coronary artery stent placement (2009), placement in 2006, left hip replacement (2012), bilateral knee replacements (2016), diabetes mellitus and lumbar L1 compression fracture status post kyphoplasty. At her initial evaluation, her son was available by telephone during her office visit. She now resides in an assisted care facility. She has been exhibiting memory difficulty since at least 2021. She has a tendency to forget conversations and to repeat conversations. 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 She has become lost while driving in familiar places. She has had word finding difficulty. She had difficulty performing cooking and no longer does so. She is independent in activities such as dressing and bathing. Her cognitive deficits gradually worsened over time however no further worsening has been noticed over recent months. She takes donepezil. She has had some gait imbalance since 2020. She had a fall in 2020 and sustained a lumbar L1 compression fracture and has had chronic low back pain. She underwent cement kyphoplasty in 2020 for the lumbar compression fracture however her low back pain has persisted. Her low back pain occurs when standing for longer than 5 minutes and will diminish significantly if she sits. She denied having pain in the lower extremities. She does not experience claudication type discomfort in the lower extremities when she ambulates. She denied having joint pains in the lower extremities. She denied having numbness, weakness, vision change, hearing loss, dizziness, lightheadedness or neck pain. She has not had a tremor or swallowing difficulty. She has at times been observed to exhibit a festinating gait. She had 2 further falls in 2022. She has had some urinary incontinence. She has depression. She has fatigue. She had another fall in May 2023; she had a right humerus fracture for which she underwent plate fixation. On 09/08/2022, she was noted to have aphasia. Her speech was described as garbled. She was brought to the emergency room. A head MRI had been done 2 days prior due to observation of increased confusion in the days preceding her emergency room presentation. The head MRI revealed revealed mild diffuse age-related cerebral atrophy and mild bilateral periventricular and subcortical white matter chronic small vessel ischemic disease however no acute stroke or other acute pathology was identified. A head and neck CTA revealed bilateral internal carotid artery stenosis in the petrous segments of the arteries secondary to calcification (moderate on the right (50-75%) and mild on the left (less than 50%)) and 50-69% stenosis of the left internal carotid artery. Her aphasia improved over the following 2 days. She was noncompliant with her warfarin therapy for her atrial fibrillation at the time that her speech difficulty in August 2022 occurred. She has since resumed taking warfarin as prescribed. Mini-Mental status exam score was 27/30 on 09/18/2022. Between 09/18/2022 and December 2022 she has had 3 further episodes of garbled speech/aphasia the last of which occurred in November 2022; episodes lasted about 1 hour each. Lamotrigine was initiated in December 2022 for suspected complex partial seizures and she has had only 1 further episode of garbled speech/aphasia since initiation of lamotrigine and this occurred in May 2023. Aspirin 81 mg daily was initiated following her episode in November 2022 however she subsequently discontinued aspirin. Physical therapy was ordered in 2022. Mini-Mental status exam score was 28/30 in December 2022. Physical Exam: Neuro: The patient is awake and alert and responds appropriately; she is oriented to day of the week; she is able to subtract 7 from 100; she is able to spell world backwards Neck: No bruits Heart: Irregularly irregular Supplemental Info Lipid profile, CBC, CMP (06/26/2022): Cholesterol 163 (normal), triglycerides 178 (normal), HDL 47 (normal), LDL 80 (normal), VLDL 36 (normal), BUN 20 (high), creatinine 1.11 (high), EGFR 49 (low), glucose 142 (high) B12, vitamin D (08/08/2022): Normal. Cervical spine CT (08/11/2020): FINDINGS: There is no evidence of fracture or dislocation in the cervical spine. The dens is intact. There is straightening of the normal cervical lordosis which may be due to paraspinal muscle spasm or may be positi (more content not included)... Normal [facility] Capillary blood internationa l normalized ratio (INR)Ordered By: Alexandra Hagen on 06-30-2023 INR Coag (BldC) [Relative time] 2.4 [facility] Comment on above: Critical Value > 4.0 Whole blood prothrombin time Ordered By: Alexandra Hagen on 06-30-2023 PT Coag (Bld) [Time] 24.6 s 11.7-14.9 [facility] CARECOORDon 2023 [facility] Patient Choice Patient Name: EZRA GONZALEZ Date of : 1935 [facility] CARECOORDon 06-20-2023 [facility] Next Site of Care Admission Date: 06/16/2023 01:38 PM Patient Name: EZRA GONZALEZ Location: [address] [id number] Date of : 1935 ------- Placement Information ------- Referral Type:Home Health Care Services - New Referral ID:[id number] [facility] Address 1:[address] [place], [place] [address]hellen [facility] Address 2: City:[place] Selection Factors:Patient/Famil y Choice State:[place] Normal [facility] updated SW, pt i s requesting COT transport back to pt home. Pt had opportunity for pt AL to pick pt up and transport via wheelchair, pt declined. Contacted [facility], arranged for pt to be picked up via COT today at 3:30 pm and transported to home. Transportation form completed. Met with pt, introduced self and role. Updated pt on discharge time via COT. Pt is in agreement with the mode of transportation, explained SW provided pt insurance to [facility] and there pay be a separate bill. Pt had no questions for SW. Helped pt order lunch. Notified TONIO, RN and community relations manager. . I SPOKE WITH DONOVAN, COLORER MACHINE AT [facility]. THEY CAN TAKE PT BACK TODAY. THEY CAN PROVIDE TRANSPORTATION BACK TO FACILITY AROUND 3 PM. AWARE PT WILL NEED PT AT FACILITY, THEY USE [facility] [employer] [facility], DID LET LIAISON NOW. WENT TO SPEAK WITH PT ABOUT DISCHARGING AT 3, SHE TOLD ME SHE CANCELLED THIS, SHE DID NOT WANT TO RIDE IN A WC DUE TO HER ARM. SHE WANTS AMBULANCE BACK, I DID INFORM HER SHE MAY HAVE A BILL FROM THIS, SHE WAS OK WITH THIS. I LET SW KNOW TO SET UP TRANSPORT HOME. RECEIVED CALL BACK FROM DONOVAN, SHE IS NOW ASKING THAT ANY SCRIPTS BE ESCRIBED TO [facility]. SECURE CHAT WITH CONNIE PEREZ REGARDING THIS. Normal [facility] - Chemistry and C hemistry - challengeon 06-20-2023 Glucose [Mass/Vol] 125 mg/dL High 70 - 100 mg/dL [facility] - Coagulationon 0 06-20-2023 PT Coag (Bld) [Time] 11.3 s 9.0 - 12.0 s [facility] No Panel Informationon 06-19 Interpretation and review of laboratory results Abnormal [facility] Performed by: [facility], [address] [place] [address] CLIA ID: [id number] [facility] Radiology Study observation (narrative) Trina Oconnell chalo PROTHROMBIN TIMEon INR Coag (PPP) [Relative time] 1.1 {INR} Normal 0.9-1.1 [facility] Comment on above: Result Comment: Reji mmended Anticoagulant Therapy: SEE BELOW ----- INR of 2.0 - 3.0 : - Prophylaxis of Venous Thrombosis (high-risk surgery) - Treatment of Venous Thrombosis - Treatment of Pulmonary Embolism (Includes tissue heart valves, Acute Myocardial Infarction to prevent systemic embolism, Valvular Heart Disease, and Atrial Fibrillation) ----- INR of 2.5 - 3.5 : - Mechanical Prosthetic Valves (high risk) - If oral anticoagulant therapy is used to prevent Myocardial Infarction Performed By: #### L [id number] ####Bridge Design Engineer: ALEXANDRA BUSTAMANTE ([id number])[facility] ([facility])[address] [place] [address] PT Coag (PPP) [Time] 11.3 s Normal 9.0-12.0 [facility] Comment on above: Performed By: #### L [id number] ####Bridge Design Engineer: ALEXANDRA BUSTAMANTE ([id number])[facility] ([facility])[address] [place] [address] PT Coag (Bld) [Time]on 06-19 INR Coag (PPP) [Relative time] 1.1 {INR} 0.9 - 1.1 [facility] Comment on above: Recommended Anticoag ulant Therapy: SEE BELOW ----- INR of 2.0 - 3.0 : - Prophylaxis of Venous Thrombosis (high-risk surgery) - Treatment of Venous Thrombosis - Treatment of Pulmonary Embolism (Includes tissue heart valves, Acute Myocardial Infarction to prevent systemic embolism, Valvular Heart Disease, and Atrial Fibrillation) ----- INR of 2.5 - 3.5 : - Mechanical Prosthetic Valves (high risk) - If oral anticoagulant therapy is used to prevent Myocardial Infarction Interpretation and review of laboratory results [facility] Progress Noteon 06-20-2023 Progress Note Dc via CRISTINA cot to Josep MCARTHUR with all belongings [facility] Progress Note Called report to Maryanne at [facility] Progress Note [facility] Anticoagulatio n Management Service ([facility]) Inpatient Warfarin Consult HPI: Ezra Gonzalez is a 87 y.o. female admitted on 06/16/2023 for Closed displaced fracture of medial condyle of right humerus, initial encounter [S42.679R] History reviewed. No pertinent past medical history. Patient is on warfarin for Afib and has a goal INR 2.0 - 3.0. Pt's home dose of warfarin is 2.5 mg daily. S/sx of bleeding= none noted Interacting medications= Vitamin K 10 mg injection (06/15), tranexamic acid 1,000 mg (06/17) Labs: Recent Labs 06/18/23 0203 06/19/23 0140 HGB 13.9 11.4* HCT 44.1 35.0 PLT 375 260 Recent Labs 06/20/23 0136 INR 1.1 Date INR Dose 06/19 1.1 2.5 mg 06/18 1.1 5 mg Assessment/Plan: 1. Subtherapeutic INR d/t held warfarin doses and vitamin K injection. Will give 2.5 mg today. Consider bridge while INR subtherapeutic as patient can be classified as high risk ([id number] = 8). 2. Monitor for s/s of bleeding and drug interactions. Will adjust dose accordingly 3. RIA will manage while inpatient Dc Lombardi, JpD Candidate Jp BolanosD, [facility] RIA is available daily [phone] via Groovideo. If no response on SportsBeep Chat then please page [phone]. Normal [facility] BASIC METABOLIC PANELon 03-2 Anion gap [Moles/Vol] 11 mmol/L Normal 3-13 [facility] Comment on above: Performed By: #### L [id number] ####Bridge Design Engineer: ALEXANDRA BUSTAMANTE ([id number])[facility])[address] [place] [address] Calcium [Mass/Vol] 8.3 mg/dL Low 8.4-10.4 [facility] Comment on above: Performed By: #### L [id number] ####Bridge Design Engineer: ALEXANDRA BUSTAMANTE ([id number])[facility])[address] [place] [address] Chloride [Moles/Vol] 102 mmol/L Normal 98-107 [facility] Comment on above: Performed By: #### L [id number] ####Bridge Design Engineer: ALEXANDRA BUSTAMANTE ([phone])[facility])[address] [place] [address] CO2 [Moles/Vol] 21 mmol/L Low 22-30 [facility] Comment on above: Performed By: #### L [id number] ####Bridge Design Engineer: ALEXANDRA BUSTAMANTE ([id number])[facility])[address] [place] [address] Creatinine [Mass/Vol] 0.84 mg/dL Normal 0.52-1.04 [facility] Comment on above: Performed By: #### L [id number] ####Bridge Design Engineer: ALEXANDRA BUSTAMANTE ([id number])[facility] ([facility])[address] [place] [address] GLOMERULAR FILTRATION RATE ML/MIN/1.73 SQ M.PREDICTED 67.4 mL/min/1.73m*2 Normal >60.0 [facility] Comment on above: Result Comment: Calc ulation based on the Chronic Kidney Disease Epidemiology Collaboration (CKD-EPI) equation refit without adjustment for race Performed By: #### L [id number] ####Bridge Design Engineer: ALEXANDRA BUSTAMANTE ([id number])[facility] ([facility])[address] [place] [address] Glucose [Mass/Vol] 263 mg/dL High 70-100 [facility] Comment on above: Performed By: #### L [id number] ####Bridge Design Engineer: ALEXANDRA BUSTAMANTE ([id number])[facility] ([facility])[address] [place] [address] Potassium [Moles/Vol] 4.7 mmol/L Normal 3.5-5.1 [facility] Comment on above: Performed By: #### L [id number] ####Bridge Design Engineer: ALEXANDRA BUSTAMANTE ([id number])[facility] ([facility])[address] [place] [address] Sodium [Moles/Vol] 133 mmol/L Low 135-145 [facility] Comment on above: Performed By: #### L [id number] ####Bridge Design Engineer: ALEXANDRA BUSTAMANTE ([id number])[facility])[address] [place] [address] Urea nitrogen [Mass/Vol] 27 mg/dL High 7-17 [facility] Comment on above: Performed By: #### L [id number] ####Bridge Design Engineer: ALEXANDRA BUSTAMANTE ([id number])[facility])[address] [place] [address] Basic metabolic 1998 panelon 06-19-2023 Anion gap [Moles/Vol] 11 mmol/L 3 - 13 mmol/L [facility] Calcium [Mass/Vol] 8.3 mg/dL Low 8.4 - 10. 4 mg/dL [facility] Chloride [Moles/Vol] 102 mmol/L 98 - 10 7 mmol/L [facility] CO2 [Moles/Vol] 21 mmol/L Low 22 - 30 mmol/L [facility] Creatinine [Mass/Vol] 0.84 mg/dL 0.52 - 1.04 mg/dL [facility] GFR/1.73 sq M.predicted MDRD (S/P/Bld) [Vol rate/Area] 67.4 mL/min/{1.73_m2} - PINF [facility] Comment on above: Calculation based on the Chronic Kidney Disease Epidemiology Collaboration (CKD-EPI) equation refit without adjustment for race Glucose [Mass/Vol] 263 mg/dL High 70 - 100 mg/dL [facility] Interpretation and review of laboratory results Abnormal [facility] Potassium [Moles/Vol] 4.7 mmol/L 3.5 - 5.1 mmol/L [facility] Sodium [Moles/Vol] 133 mmol/L Low 135 - 145 mmol/L [facility] Urea nitrogen [Mass/Vol] 27 mg/dL High 7 - 17 mg/d L [facility] CARECOORDon 06-19-2023 CARECOHERRON DAY #1 S/P ORIF OF RIGHT ARM. WAITING FOR PT/OT EVALS FOR DC PLANNING. Normal [facility] CBC W Auto Differential pane l (Bld)Ordered By: Leona Thakur on 06-19-2023 Basophils (Bld) [#/Vol] 0.0 10*3/uL 0.0 - 0.2 10*3/uL [facility] Basophils/100 WBC (Bld) 0.2 % 0.0 - 2.0 % [facility] Eosinophils (Bld) [#/Vol] 0.0 10*3/uL 0. 0 - 0.5 10*3/uL [facility] Eosinophils/100 WBC (Bld) 0.0 % 0.0 - 6.0 % [facility] Erythrocyte distribution width (RBC) [Ratio] 13.6 % 11.5 - 15.0 % [facility] Hematocrit (Bld) [Volume fraction] 35.0 % 35.0 - 47.0 % [facility] Hemoglobin (Bld) [Mass/Vol] 11.4 g/dL Low 11.7 - 16.0 g/dL [facility] Immature granulocytes (Bld) [#/Vol] 0.1 10*3/uL High NINF - 0.1 10*3/uL [facility] Immature granulocytes/100 WBC (Bld) 0.6 % 0.0 - 2.0 % [facility] Interpretation and review of laboratory results Abnormal [facility] th Lymphocytes (Bld) [#/Vol] 0.8 10*3/uL Low 1. 0 - 4.3 10*3/uL [facility] Lymphocytes/100 WBC (Bld) 6.4 % Low 15 .0 - 45.0 % [facility] MCH (RBC) [Entitic mass] 28.6 pg 26. 0 - 34.0 pg [facility] MCHC (RBC) [Mass/Vol] 32.6 % 30.5 - 36.0 % [facility] MCV (RBC) [Entitic vol] 87.9 fL 77.0 - 99.0 fL [facility] Monocytes (Bld) [#/Vol] 0.6 10*3/uL 0.0 - 0.9 10*3/uL [facility] Monocytes/100 WBC (Bld) 4.6 % Low 5.0 - 13.0 % [facility] Neutrophils (Bld) [#/Vol] 11.2 10*3/uL High 1. 8 - 7.5 10*3/uL [facility] Neutrophils/100 WBC (Bld) 88.2 % High 38 .0 - 82.0 % [facility] Nucleated RBC/100 WBC (Bld) [Ratio] 0.0 % [facility] Platelet mean volume (Bld) [Entitic vol] 10.2 fL 9.0 - 12.7 fL [facility] Platelets (Bld) [#/Vol] 260 10*3/uL 140 - 440 10*3/uL [facility] RBC (Bld) [#/Vol] 3.98 10*6/uL 3.80 - 5.2 0 10*6/uL [facility] WBC (Bld) [#/Vol] 12.7 10*3/uL High 3.6 - 10.7 10*3/uL [facility] CBC WITH AUTO DIFFERENTIALon 06-19-2023 Basophils (Bld) [#/Vol] 0.0 10*3/uL Normal 0.0-0.2 [facility] Comment on above: Performed By: #### L [id number] ####Bridge Design Engineer: ALEXANDRA BUSTAMANTE ([id number])[facility])[address] [place] [address] Basophils/100 WBC (Bld) 0.2 % Normal 0.0-2.0 [facility] Comment on above: Performed By: #### L [id number] ####Bridge Design Engineer: ALEXANDRA BUSTAMANTE ([id number])[facility])[address] [place] [address] Eosinophils (Bld) [#/Vol] 0.0 10*3/uL Normal 0.0-0.5 [facility] Comment on above: Performed By: #### L [id number] ####Bridge Design Engineer: ALEXANDRA BUSTAMANTE ([id number])[facility])[address] [place] [address] Eosinophils/100 WBC (Bld) 0.0 % Normal 0.0-6.0 [facility] Comment on above: Performed By: #### L [id number] ####Bridge Design Engineer: ALEXANDRA BUSTAMANTE ([id number])[facility])[address] [place] [address] Erythrocyte distribution width (RBC) [Ratio] 13.6 % Normal 11.5-15.0 [facility] Comment on above: Performed By: #### L [id number] ####Bridge Design Engineer: ALEXANDRA BUSTAMANTE ([id number])[facility])[address] [place] [address] Hematocrit (Bld) [Volume fraction] 35.0 % Normal 35.0-47.0 [facility] Comment on above: Performed By: #### L [id number] ####Bridge Design Engineer: ALEXANDRA BUSTAMANTE ([id number])[facility])[address] [place] [address] Hemoglobin (Bld) [Mass/Vol] 11.4 g/dL Low 11.7-16.0 [facility] Comment on above: Performed By: #### L [id number] ####Bridge Design Engineer: ALEXANDRA BUSTAMANTE ([id number])[facility])[address] [place] [address] IMMATURE GRANS % 0.6 % Normal 0.0-2.0 [facility] Comment on above: Performed By: #### L [id number] ####Bridge Design Engineer: ALEXANDRA BUSTAMANTE ([id number])[facility])[address] [place] [address] IMMATURE GRANS ABSOLUTE 0.1 10*3/uL High <0.1 [facility] Comment on above: Performed By: #### L [id number] ####Bridge Design Engineer: ALEXANDRA BUSTAMANTE ([id number])[address] Lymphocytes (Bld) [#/Vol] 0.8 10*3/uL Low 1.0-4.3 [facility] Comment on above: Performed By: #### L [id number] ####Bridge Design Engineer: ALEXANDRA BUSTAMANTE ([id number])[facility])[address] [place] [address] Lymphocytes/100 WBC (Bld) 6.4 % Low 15.0-45.0 [facility] Comment on above: Performed By: #### L [id number] ####Bridge Design Engineer: ALEXANDRA BUSTAMANTE ([id number])[facility])[address] [place] [address] MCH (RBC) [Entitic mass] 28.6 pg Normal 26.0-34.0 [facility] Comment on above: Performed By: #### L [id number] ####Bridge Design Engineer: ALEXANDRA BUSTAMANTE ([id number])[address] MCHC 32.6 % Normal 30.5-36.0 [facility] Comment on above: Performed By: #### L [id number] ####Bridge Design Engineer: ALEXANDRA BUSTAMANTE ([id number])[facility] [place] [address] MCV (RBC) [Entitic vol] 87.9 fL Normal 77.0-99.0 S [facility] Comment on above: Performed By: #### L [id number] ####Bridge Design Engineer: ALEXANDRA BUSTAMANTE ([id number])[facility] ([facility])[address] [place] [address] Monocytes (Bld) [#/Vol] 0.6 10*3/uL Normal 0.0-0.9 [facility] Comment on above: Performed By: #### L [id number] ####Bridge Design Engineer: ALEXANDRA BUSTAMANTE ([id number])[facility] ([facility])[address] [place] [address] Monocytes/100 WBC (Bld) 4.6 % Low 5.0-13.0 S [facility] Comment on above: Performed By: #### L [id number] ####Bridge Design Engineer: ALEXANDRA BUSTAMANTE ([id number])[facility] ([facility])[address] [place] [address] NEUTROPHILS ABSOLUTE 11.2 10*3/uL High 1.8-7.5 [facility] Comment on above: Performed By: #### L [id number] ####Bridge Design Engineer: ALEXANDRA BUSTAMANTE ([id number])[facility] ([facility])[address] [place] [address] Neutrophils/100 WBC (Bld) 88.2 % High 38.0-82.0 [facility] Comment on above: Performed By: #### L [id number] ####Bridge Design Engineer: ALEXANDRA BUSTAMANTE ([id number])[facility] ([facility])[address] [place] [address] [place] NRBC 0.0 /100 WBCs Normal 0.0-2.0 [facility] Comment on above: Performed By: #### L [id number] ####Bridge Design Engineer: ALEXANDRA BUSTAMANTE ([id number])[facility] ([facility])[address] [place] [address] [place] Platelet mean volume (Bld) [Entitic vol] 10.2 fL Normal 9.0-12.7 [facility] Comment on above: Performed By: #### L [id number] ####Bridge Design Engineer: ALEXANDRA BUSTAMANTE ([id number])[facility] ([facility])[address] [place] [address] Platelets (Bld) [#/Vol] 260 10*3/uL Normal 140-440 [facility] Comment on above: Performed By: #### L [id number] ####Bridge Design Engineer: ALEXANDRA BUSTAMANTE ([id number])[facility] ([facility])[address] [place] [address] RBC (Bld) [#/Vol] 3.98 10*6/uL Normal 3.80-5.20 [facility] Comment on above: Performed By: #### L [id number] ####Bridge Design Engineer: ALEXANDRA BUSTAMANTE ([id number])[facility] ([facility])[address] [place] [address] WBC (Bld) [#/Vol] 12.7 10*3/uL High 3.6-10.7 [facility] Comment on above: Performed By: #### L [id number] ####Bridge Design Engineer: ALEXANDRA BUSTAMANTE ([id number])[facility] ([facility])[address] [place] [address] Laboratory - Chemistry and C hemistry - challengeon 06-19-2023 Glucose [Mass/Vol] 220 mg/dL High 70 - 100 mg/dL [facility] Glucose [Mass/Vol] 137 mg/dL High 70 - 100 mg/dL [facility] Glucose [Mass/Vol] 141 mg/dL High 70 - 100 mg/dL [facility] Glucose [Mass/Vol] 177 mg/dL High 70 - 100 mg/dL [facility] Laboratory - Coagulationon 0 06-19-2023 PT Coag (Bld) [Time] 11.3 s 9.0 - 12.0 s [facility] No Panel Informationon 06-18 Interpretation and review of laboratory results Abnormal [facility] Performed by: [facility], [address] [place] [address] CLIA ID: [id number] [facility] Interpretation and review of laboratory results Abnormal [facility] Performed by: [facility], [address] [place] [id number] CLIA ID: [id number] [facility] Interpretation and review of laboratory results Abnormal [facility] Performed by: [facility], [address] [place] [id number] CLIA ID: [id number] [facility] Interpretation and review of laboratory results Abnormal [facility] Performed by: [facility], [address] [place] [address] CLIA ID: [id number] [facility] Radiology Study observation (narrative) [facility] Radiology Study observation (narrative) [facility] Rad[facility] Study observation (narrative) [facility] Rad[facility] Study observation (narrative) [facility] Anish [facility] PROTHROMBIN TIMEon INR Coag (PPP) [Relative time] 1.1 {INR} Normal 0.9-1.1 [facility] Comment on above: Result Comment: Reji mmended Anticoagulant Therapy: SEE BELOW ----- INR of 2.0 - 3.0 : - Prophylaxis of Venous Thrombosis (high-risk surgery) - Treatment of Venous Thrombosis - Treatment of Pulmonary Embolism (Includes tissue heart valves, Acute Myocardial Infarction to prevent systemic embolism, Valvular Heart Disease, and Atrial Fibrillation) ----- INR of 2.5 - 3.5 : - Mechanical Prosthetic Valves (high risk) - If oral anticoagulant therapy is used to prevent Myocardial Infarction Performed By: #### L [id number] ####Bridge Design Engineer: ALEXANDRA BUSTAMANTE ([id number])[facility] ([facility])[address] [place] [address] [place] PT Coag (PPP) [Time] 11.3 s Normal 9.0-12.0 [facility] Comment on above: Performed By: #### L [id number] ####Bridge Design Engineer: ALEXANDRA BUSTAMANTE ([id number])[facility] ([facility])[address] [place] [address] [place] PT Coag (Bld) [Time]on 06-18 INR Coag (PPP) [Relative time] 1.1 {INR} 0.9 - 1.1 [facility] Comment on above: Recommended Anticoag ulant Therapy: SEE BELOW ----- INR of 2.0 - 3.0 : - Prophylaxis of Venous Thrombosis (high-risk surgery) - Treatment of Venous Thrombosis - Treatment of Pulmonary Embolism (Includes tissue heart valves, Acute Myocardial Infarction to prevent systemic embolism, Valvular Heart Disease, and Atrial Fibrillation) ----- INR of 2.5 - 3.5 : - Mechanical Prosthetic Valves (high risk) - If oral anticoagulant therapy is used to prevent Myocardial Infarction Interpretation and review of laboratory results Normal [facility] Progress Noteon 06-19-2023 Progress Note [facility] Anticoagulatio n Management Service (RIA) Inpatient Warfarin Consult HPI: Ezra Gonzalez is a 87 y.o. female admitted on 06/16/2023 for Closed displaced fracture of medial condyle of right humerus, initial encounter [S42.308F] History reviewed. No pertinent past medical history. Patient is on warfarin for Afib and has a goal INR 2.0 - 3.0. Pt's home dose of warfarin is 2.5 mg daily. S/sx of bleeding= none noted Interacting medications= Vitamin K 10 mg injection (06/15), tranexamic acid 1,000 mg (06/17) Labs: Recent Labs 06/16/23 1409 06/18/23 0203 06/19/23 0140 HGB 12.8 13.9 11.4* HCT 38.9 44.1 35.0 PLT 357 375 260 Recent Labs 06/19/23 1159 INR 1.1 Date INR Dose 06/18 1.1 5 mg Assessment/Plan: 1. Subtherapeutic INR d/t held warfarin doses and vitamin K injection. Will give 5mg today. Consider bridge while INR subtherapeutic as patient can be classified as high risk ([id number] = 8). 2. Monitor for s/s of bleeding and drug interactions. Will adjust dose accordingly 3. RIA will manage while inpatient Dc Lombardi, JpD Candidate Toshia Sanches, JpD, BCPS RIA is available daily [phone] via Groovideo. If no response on SportsBeep Chat then please page [phone]. Normal [facility] BASIC METABOLIC PANELon 05-30 Anion gap [Moles/Vol] 10 mmol/L Normal 3-13 [facility] Comment on above: Performed By: #### L [id number] ####Bridge Design Engineer: ALEXANDRA BUSTAMANTE ([id number])[facility] [place] [address] Calcium [Mass/Vol] 8.8 mg/dL Normal 8.4-10.4 [facility] Comment on above: Performed By: #### L [id number] ####Bridge Design Engineer: ALEXANDRA BUSTAMANTE ([id number])[facility] [place] [address] [place] Chloride [Moles/Vol] 98 mmol/L Normal 98-107 [facility] Comment on above: Performed By: #### L [id number] ####Bridge Design Engineer: ALEXANDRA BUSTAMANTE ([id number])[facility] [place] [address] CO2 [Moles/Vol] 25 mmol/L Normal 22-30 [facility] Comment on above: Performed By: #### L [id number] ####Bridge Design Engineer: ALEXANDRA BUSTAMANTE ([id number])[facility] [place] [address] Creatinine [Mass/Vol] 0.83 mg/dL Normal 0.52-1.04 [facility] Comment on above: Performed By: #### L [id number] ####Bridge Design Engineer: ALEXANDRA BUSTAMANTE ([id number])[facility] ([facility])[address] [place] [address] [place] GLOMERULAR FILTRATION RATE ML/MIN/1.73 SQ M.PREDICTED 68.3 mL/min/1.73m*2 Normal >60.0 [facility] Comment on above: Result Comment: Calc ulation based on the Chronic Kidney Disease Epidemiology Collaboration (CKD-EPI) equation refit without adjustment for race Performed By: #### L [id number] ####Bridge Design Engineer: ALEXANDRA BUSTAMANTE ([id number])[facility] [place] [address] [place] Glucose [Mass/Vol] 163 mg/dL Normal [facility] Comment on above: Performed By: #### L [id number] ####Bridge Design Engineer: ALEXANDRA BUSTAMANTE ([id number])[facility] ([facility])[address] [place] [address] Order Comment: If no t done within the last 3 mos Performed By: #### L [id number] ####Bridge Design Engineer: ALEXANDRA BUSTAMANTE ([id number])[facility] ([facility])[address] [place] [address] Potassium [Moles/Vol] 4.6 mmol/L Normal 3.5-5.1 [facility] Comment on above: Performed By: #### L [id number] ####Bridge Design Engineer: ALEXANDRA BUSTAMANTE ([id number])[facility] ([facility])[address] [place] [address] Sodium [Moles/Vol] 133 mmol/L Low 135-145 [facility] Comment on above: Performed By: #### L [id number] ####Bridge Design Engineer: ALEXANDRA BUSTAMANTE ([id number])[facility] ([facility])[address] [place] [address] Urea nitrogen [Mass/Vol] 24 mg/dL High 7-17 [facility] Comment on above: Performed By: #### L [id number] ####Bridge Design Engineer: ALEXANDRA BUSTAMANTE ([phone])[facility])[address] [place] [address] Basic metabolic 1998 panelon 06-18-2023 Anion gap [Moles/Vol] 10 mmol/L 3 - 13 mmol/L [facility] Calcium [Mass/Vol] 8.8 mg/dL 8.4 - 10. 4 mg/dL [facility] Chloride [Moles/Vol] 98 mmol/L 98 - 10 7 mmol/L [facility] CO2 [Moles/Vol] 25 mmol/L 22 - 30 mmol/L [facility] Creatinine [Mass/Vol] 0.83 mg/dL 0.52 - 1.04 mg/dL [facility] GFR/1.73 sq M.predicted MDRD (S/P/Bld) [Vol rate/Area] 68.3 mL/min/{1.73_m2} - PINF [facility] Comment on above: Calculation based on the Chronic Kidney Disease Epidemiology Collaboration (CKD-EPI) equation refit without adjustment for race Glucose [Mass/Vol] 163 mg/dL High 70 - 100 mg/dL [facility] Interpretation and review of laboratory results Abnormal [facility] Potassium [Moles/Vol] 4.6 mmol/L 3.5 - 5.1 mmol/L [facility] Sodium [Moles/Vol] 133 mmol/L Low 135 - 145 mmol/L [facility] Urea nitrogen [Mass/Vol] 24 mg/dL High 7 - 17 mg/d L [facility] CARECOORDon 06-18-2023 [facility] Care Managment Initial Assessment Date: 06/18/2023 Patient Name: Ezra Gonzalez : 1935 Patient Information Source of Information: Patient Cognition/Language: WFL - Within Functional Limits Permission given to speak with patient fulfillment representative/caregi saira as indicated: No Confirmation of Payer with patient/family: Yes Payer Name: [facility] : No Confirmation of Primary Care Physician: Confirmed Primary Caregiver: Self If assistance needed, confirmed caregiver ready, willing and able to care for patient at discharge: Confirmed with: Living Arrangements Current Residence: Number of Floors Number of Entry Steps: Bed/Bath Levels: Facility: Assisted Living Facility Name: [facility] Plan to Return: Yes Lives with: Alone Support Systems: Children Activities of Daily Living Ambulation: Independent Bathing/Dressing: Independent Elimination/Continenc e/Toileting: Independent Feeding: Independent Who Assists with Activities of Daily Living: Instrumental Activities of Daily Living Prescription Coverage: Yes Pharmacy Used: Medication Management: (AL STAFF) Transportation/Shoppi ng: Assistance Provider Transportation/Shoppi ng Assistance Provider Name: [address] Transportation Mode: Needs Assistance with Transportation at Discharge: Meal Preparation: Assistance Provider Meal Prep Assistance Provider Name: AL STAFF Laundry/Cleaning: Assistance Provider Laundry/Cleaning Assistance Provider Name: AL STAFF Finances/Bill Paying: Independent Communication: Independent Types of Care Services/Equipment Utilized Care Services: (NA) Dialysis Type: NA Durable Medical Equipment: Cane, Rollator Patient's Goal/Discharge Plan Patient expects to be discharged to: [place] Discharge Planning Actions: Continue to follow Patient's Choice Rights and [employer] and Collaborative Relationships Disclosed as Indicated for Post-Acute Care: Interdisciplinary Team Engagement: Social Work Referral for: Additional Information: SPOKE WITH PT, INTRODUCED SELF AND EXPLAINED ROLE. PT HERE WITH RIGHT HUMERUS FX, PLAN FOR ORIF IN SURGERY TODAY. CURRENTLY NPO AND IV FLUIDS. PT/OT EVAL PENDING. ANTICIPATE RETURN TO [place], WILL CONTINUE TO FOLLOW. Shikha Gray RN Normal [facility] CBC W Auto Differential pane l (Bld)Ordered By: Nir Meza on 06-18-2023 Basophils (Bld) [#/Vol] 0.1 10*3/uL 0.0 - 0.2 10*3/uL [facility] Basophils/100 WBC (Bld) 0.4 % 0.0 - 2.0 % [facility] Eosinophils (Bld) [#/Vol] 0.2 10*3/uL 0. 0 - 0.5 10*3/uL [facility] Eosinophils/100 WBC (Bld) 1.3 % 0.0 - 6.0 % [facility] Erythrocyte distribution width (RBC) [Ratio] 13.8 % 11.5 - 15.0 % [facility] Hematocrit (Bld) [Volume fraction] 44.1 % 35.0 - 47.0 % [facility] Hemoglobin (Bld) [Mass/Vol] 13.9 g/dL 11.7 - 16.0 g/dL [facility] Immature granulocytes (Bld) [#/Vol] 0.1 10*3/uL High NINF - 0.1 10*3/uL [facility] Immature granulocytes/100 WBC (Bld) 0.4 % 0.0 - 2.0 % [facility] Interpretation and review of laboratory results Abnormal [facility] th Lymphocytes (Bld) [#/Vol] 2.0 10*3/uL 1. 0 - 4.3 10*3/uL [facility] Lymphocytes/100 WBC (Bld) 13.1 % Low 15 .0 - 45.0 % [facility] MCH (RBC) [Entitic mass] 28.0 pg 26. 0 - 34.0 pg [facility] MCHC (RBC) [Mass/Vol] 31.5 % 30.5 - 36.0 % [facility] MCV (RBC) [Entitic vol] 88.9 fL 77.0 - 99.0 fL [facility] Monocytes (Bld) [#/Vol] 1.4 10*3/uL High 0.0 - 0.9 10*3/uL [facility] Monocytes/100 WBC (Bld) 9.0 % 5.0 - 13.0 % [facility] Neutrophils (Bld) [#/Vol] 11.8 10*3/uL High 1. 8 - 7.5 10*3/uL [facility] Neutrophils/100 WBC (Bld) 75.8 % 38 .0 - 82.0 % [facility] Nucleated RBC/100 WBC (Bld) [Ratio] 0.0 % [facility] Platelet mean volume (Bld) [Entitic vol] 10.1 fL 9.0 - 12.7 fL [facility] Platelets (Bld) [#/Vol] 375 10*3/uL 140 - 440 10*3/uL [facility] RBC (Bld) [#/Vol] 4.96 10*6/uL 3.80 - 5.2 0 10*6/uL [facility] WBC (Bld) [#/Vol] 15.5 10*3/uL High 3.6 - 10.7 10*3/uL [facility] CBC WITH AUTO DIFFERENTIALon 06-18-2023 Basophils (Bld) [#/Vol] 0.1 10*3/uL Normal 0.0-0.2 [facility] Comment on above: Performed By: #### L [id number] ####Bridge Design Engineer: ALEXANDRA BUSTAMANTE ([id number])[facility])[address] [place] [address] Basophils/100 WBC (Bld) 0.4 % Normal 0.0-2.0 [facility] Comment on above: Performed By: #### L [id number] ####Bridge Design Engineer: ALEXANDRA BUSTAMANTE ([id number])[facility] ([facility])[address] [place] [address] Eosinophils (Bld) [#/Vol] 0.2 10*3/uL Normal 0.0-0.5 [facility] Comment on above: Performed By: #### L [id number] ####Bridge Design Engineer: ALEXANDRA BUSTAMANTE ([id number])[facility] ([facility])[address] [place] [address] [place] Eosinophils/100 WBC (Bld) 1.3 % Normal 0.0-6.0 [facility] Comment on above: Performed By: #### L [id number] ####Bridge Design Engineer: ALEXANDRA BUSTAMANTE ([id number])[facility])[address] [place] [address] Erythrocyte distribution width (RBC) [Ratio] 13.8 % Normal 11.5-15.0 [facility] Comment on above: Performed By: #### L [id number] ####Bridge Design Engineer: ALEXANDRA BUSTAMANTE ([id number])[facility])[address] [place] [address] Hematocrit (Bld) [Volume fraction] 44.1 % Normal 35.0-47.0 [facility] Comment on above: Performed By: #### L [id number] ####Bridge Design Engineer: ALEXANDRA BUSTAMANTE ([id number])[facility])[address] [place] [address] Hemoglobin (Bld) [Mass/Vol] 13.9 g/dL Normal 11.7-16.0 [facility] Comment on above: Performed By: #### L [id number] ####Bridge Design Engineer: ALEXANDRA BUSTAMANTE ([id number])[facility])[address] [place] [address] IMMATURE GRANS % 0.4 % Normal 0.0-2.0 [facility] Comment on above: Performed By: #### L [id number] ####Bridge Design Engineer: ALEXANDRA BUSTAMANTE ([id number])[facility])[address] [place] [address] IMMATURE GRANS ABSOLUTE 0.1 10*3/uL High <0.1 [facility] Comment on above: Performed By: #### L [id number] ####Bridge Design Engineer: ALEXANDRA BUSTAMANTE ([id number])[facility])[address] [place] [address] Lymphocytes (Bld) [#/Vol] 2.0 10*3/uL Normal 1.0-4.3 [facility] Comment on above: Performed By: #### L [id number] ####Bridge Design Engineer: ALEXANDRA BUSTAMANTE ([id number])[facility])[address] [place] [address] Lymphocytes/100 WBC (Bld) 13.1 % Low 15.0-45.0 [facility] Comment on above: Performed By: #### L [id number] ####Bridge Design Engineer: ALEXANDRA BUSTAMANTE ([id number])[facility])[address] [place] [address] MCH (RBC) [Entitic mass] 28.0 pg Normal 26.0-34.0 [facility] Comment on above: Performed By: #### L [id number] ####Bridge Design Engineer: ALEXANDRA BUSTAMANTE ([id number])[facility])[address] [place] [address] MCHC 31.5 % Normal 30.5-36.0 [facility] Comment on above: Performed By: #### L [id number] ####Bridge Design Engineer: ALEXANDRA BUSTAMANTE ([id number])[facility])[address] [place] [address] MCV (RBC) [Entitic vol] 88.9 fL Normal 77.0-99.0 [facility] Comment on above: Performed By: #### L [id number] ####Bridge Design Engineer: ALEXANDRA BUSTAMANTE ([id number])[facility])[address] [place] [address] Monocytes (Bld) [#/Vol] 1.4 10*3/uL High 0.0-0.9 [facility] Comment on above: Performed By: #### L [id number] ####Bridge Design Engineer: ALEXANDRA BUSTAMANTE ([id number])[facility])[address] [place] [address] Monocytes/100 WBC (Bld) 9.0 % Normal 5.0-13.0 [facility] Comment on above: Performed By: #### L [id number] ####Bridge Design Engineer: ALEXANDRA [id number])[facility] [place] [address] NEUTROPHILS ABSOLUTE 11.8 10*3/uL High 1.8-7.5 [facility] Comment on above: Performed By: #### L [id number] ####Bridge Design Engineer: ALEXANDRA BUSTAMANTE ([id number])[facility] ([facility])[address] [place] [address] Neutrophils/100 WBC (Bld) 75.8 % Normal 38.0-82.0 [facility] Comment on above: Performed By: #### L [id number] ####Bridge Design Engineer: ALEXANDRA BUSTAMANTE ([id number])[facility] ([facility])[address] [place] [address] NRBC 0.0 /100 WBCs Normal 0.0-2.0 [facility] Comment on above: Performed By: #### L [id number] ####Bridge Design Engineer: ALEXANDRA BUSTAMANTE ([id number])[facility] ([facility])[address] [place] [address] Platelet mean volume (Bld) [Entitic vol] 10.1 fL Normal 9.0-12.7 [facility] Comment on above: Performed By: #### L [id number] ####Bridge Design Engineer: ALEXANDRA BUSTAMANTE ([id number])[facility] ([facility])[address] [place] [address] Platelets (Bld) [#/Vol] 375 10*3/uL Normal 140-440 [facility] Comment on above: Performed By: #### L [id number] ####Bridge Design Engineer: ALEXANDRA BUSTAMANTE ([id number])[facility] ([facility])[address] [place] [address] RBC (Bld) [#/Vol] 4.96 10*6/uL Normal 3.80-5.20 [facility] Comment on above: Performed By: #### L [id number] ####Bridge Design Engineer: ALEXANDRA BUSTAMANTE ([id number])[facility] ([facility])[address] [place] [address] WBC (Bld) [#/Vol] 15.5 10*3/uL High 3.6-10.7 [facility] Comment on above: Performed By: #### L [id number] ####Bridge Design Engineer: ALEXANDRA BUSTAMANTE ([id number])[facility])[address] [place] [address] HEMOGLOBIN A1Con 06-18-2023 HbA1c (Bld) [Mass fraction] 7.3 % High <5.7 [facility] Comment on above: Order Comment: If no t done within the last 3 mos Result Comment: Norm al less than 5.7% Prediabetes 5.7% to 6.4% Diabetes 6.5% or higher --HgbA1C levels may not be accurate in patients who have renal disease, received recent blood transfusions, are anemic, or who have dyshemoglobinemia. Performed By: #### L [id number] ####Bridge Design Engineer: ALEXANDRA BUSTAMANTE ([id number])[facility] ([facility])[address] [place] [address] IDNon 06-18-2023 IDN The patient is Moderately Stable - Low risk of patient condition declining or worsening The patient's goals for the shift include rest and pain control The clinical goals for the shift include rest and pain control Normal [facility] - Chemistry and C hemistry - challengeon 06-18-2023 Glucose [Mass/Vol] 189 mg/dL High 70 - 100 mg/dL [facility] Procalcitonin [Mass/Vol] 0.06 ng/mL 0.0 0 - 0.09 ng/mL [facility] Glucose [Mass/Vol] 121 mg/dL High 70 - 100 mg/dL [facility] Average glucose Estimated from glycated hemoglobin (Bld) [Mass/Vol] 163 mg/dL [facility] - Hematology and Cell countson 06-18-2023 HbA1c (Bld) [Mass fraction] 7.3 % High NINF - 5.7 % [facility] Comment on above: Normal less than 5.7 % Prediabetes 5.7% to 6.4% Diabetes 6.5% or higher --HgbA1C levels may not be accurate in patients who have renal disease, received recent blood transfusions, are anemic, or who have dyshemoglobinemia. No Panel Informationon 06-17 Interpretation and review of laboratory results Abnormal [facility] Performed by: [facility], [address] [place] [id number] CLIA ID: [id number] [facility] There is no interpretation needed for this exam. IMAGING Interpretation and review of laboratory results Abnormal [facility] Performed by: [facility], [address] [place] [address] CLIA ID: [id number] [facility] Interpretation and review of laboratory results Abnormal [facility] Radiology Study observation (narrative) [facility] Radiology Study observation (narrative) [facility] Nursing Noteon 06-18-2023 Nursing Note Pt states no need to contact family. RN on floor states she will call pt's son,. Normal [facility] Nursing Note Patients wallet and watch locked up with security. OR notified patient states she has latex allergy Patients purse and glasses taken to pacu [facility] Op Noteon 06-18-2023 Op Note [facility] [address] [facility] [address] Dept: [phone] Loc: [phone] Operative Report Patient Name: Ezra Gonzalez Date of : 1935 Date of Surgery: 06/18/23 Pre-operative diagnosis: Right intra-articular distal humerus fracture Post-operative diagnosis: Same Procedure(s): Open reduction internal fixation of right intra-articular distal humerus fracture Surgeon: Benitez Givens M.D. Service Plumber(s): Lexa Aparicio M.D. Anesthesia: General and Regional block EBL: 200 cc IVF: Crystalloid Medications: Ancef 2 grams IV Implants: Synthes distal humerus locking plates Clinical History/Indication for Surgery The patient is a 87 y.o. year old female who was presents for operative fixation of a displaced right intra-articular distal humerus fracture. Typical indications for surgery were reviewed and operative fixation was recommended. Risks of fracture surgery in general were reviewed including, but not limited to, infection, non-union, need for additional procedures, painful or prominent hardware which could require removal, failure of fixation which would require revision, damage to normal structures as well as medical complications such as ID, stroke, PE, DVT, and even . Pt was given opportunity to ask questions and consider her options. She ultimately elected to proceed with surgery. No guarantees were given or implied. Operative Narration The patient was identified in the pre-operative holding area. The surgical site was identified and marked. Informed consent was obtained. The patient was then brought to the operating room and placed supine on the operating table. Anesthesia was administered and care of the head, neck, and airway was maintained by the anesthesia staff throughout the entire procedure. The patient was turned lateral with an axillary roll placed. All bony prominences were identified and padded and the silverio bag inflated. The arm was prepped and draped in the usual sterile fashion. A surgical timeout was performed. Antibiotics were confirmed to have been given. A sterile tourniquet was applied and after exsanguination the tourniquet was inflated. An olecranon osteotomy was required. A longitudinal incision was made and taken down to the fascia over the triceps and proximal forearm. Subcutaneous flaps were raised distally. The ulnar nerve was identified medially and traced distally. The semilunar notch was identified and this was used to kelsey the level of the osteotomy which was made initially with a small oscillating saw through the bare area of the olecranon. The triceps was reflected proximally. The fracture site was exposed, cleaned, and irrigated. A combination of clamps and K wires were used to obtain preliminary reduction of the articular surface. Fluoroscopic imaging confirmed acceptable reduction of the joint surface. Once reduction was obtained, direct medial and lateral Synthes distal humerus plates were applied and fixed proximally with cortical screws. Cancellous bone chips were used to backfill the metaphyseal defect left after the fracture site was cleaned and reduced. Locking screws were placed distally. Two K-wires holding the reduction of the trochlea and capitellum were driven flush with the medial and lateral epicondyles and cut flush with the epicondyles to maintain reduction of the articular surface. Fluroscopic imaging showed appropriate reduction and hardware position. The osteotomy was reduced with two offset clamps and a Synthes olecranon plate was applied. This was placed to compress the osteotomy. Range of motion of the elbow showed no crepitus or evidence of intra-articular hardware. Repeat fluoroscopic imaging confirmed an excellent overall reduction and appropriate placement of all hardware. The ulnar nerve was left positioned positioned posteriorly in its normal anatomic position. Wounds were copiously irrigated with sterile saline and closed in a layered fashion including the anconeus fascia, triceps split and then skin. A sterile compressive dressing was applied followed by a well-padded long arm splint. Once the patient was awakened from anesthesia, they were transported to the PACU in stable condition, having tolerated surgery well with no obvious complications. Please note that due to extensive comminution of the joint it was required to perform olecranon osteotomy and made case more complex and added 30% to operative time. Postoperative Plan NWB through arm Finger ROM This operative report was prepared and signed by Lexa Aparicio MD at 06/18/23, 7:20 PM [facility] Op Note Date: 06/16/2023 - 06/18/2023 Location: [facility] OR Name: Ezra Gonzalez, : 1935, Diagnosis Pre-op Diagnosis * Closed displaced fracture of medial condyle of right humerus, initial encounter [S42.461A] Post-op Diagnosis * Closed displaced fracture of medial condyle of right humerus, initial encounter [S42.461A] Procedures OPEN REDUCTION INTERNAL FIXATION RIGHT DISTAL HUMERUS 78174 - AR OPTX HUMERAL SHFT FX W/PLATE/SCREWS W/WOCERCLAGE Surgeons * Benitez Givens - Primary Procedure Summary Anesthesia: * No anesthesia type entered * ASA: III Estimated Blood Loss: Minimal Drains: * None in log * Staff: Drug Abuse Resistance Education Officer: Vivian Herrera RN Scrub Person: Linda Alvarez RN Findings: please see full op note Complications: None; patient tolerated the procedure well. Specimens Collected: No specimens collected during this procedure. Wound Class: Class I: Clean Blood Products: None Prophylactic Antibiotics: Procedure appropriate prophylactic antibiotic(s) given within 1 hour of surgical incision (two hours if receiving Vancomycin or flouroquinolone) -Operative plans: No further plans for surgery -Weight bearing: RLE: WBAT LLE: WBAT RUE: NWB LUE: WBAT -Range of motion parameters: No ROM of elbow, ok for ROM wrist/fingers/shoulde r -Immobilization: Splint to RUE. Keep clean, dry, and intact. -Sling prn -Consults: Acute pain service consult for pain control recommendations -Antibiotics: 24 hours of post op antibiotics. -Dressings: Keep dressings on until the follow up office visit. -Other: None -Diet: no restrictions from ortho standpoint -Labs: Check hemoglobin tomorrow -PT/OT -PT recommended outpatient/post discharge?: No formal PT is needed -Medical management, dvt ppx and pain control per primary -DVT ppx recommended?: No DVT ppx is indicated from ortho standpoint -Follow-up with Dr Givens in 2 weeks -Ortho to follow. Normal [facility] PROCALCITONIN TESTon 024 PROCALCITONIN 0.06 ng/mL Normal 0.00-0.09 [facility] Comment on above: Result Comment: PUMA Leal COMMENTS: PCT <0.50 = Low risk of severe sepsis and/or septic shock. PCT >2.00 = High risk of severe sepsis and/or septic shock. Performed By: #### L [id number] ####Bridge Design Engineer: ALEXANDRA BUSTAMANTE ([id number])[address] Procalcitonin [Mass/Vol]on 0 06-18-2023 Interpretation and review of laboratory results Normal [facility] PCT <0.50 = Low risk of severe sepsis and/or septic shock. PCT >2.00 = High risk of severe sepsis and/or septic shock. [facility] Progress Noteon 06-18-2023 Progress Note Nutrition rescreen completed. Chart reviewed. Patient to be monitored and followed by the diet auto brake technician. NICA Watts Normal [facility] Progress Note OCCUPATIONAL THERAPY [facility] Name/MRN: Ezra Gonzalez ([id number]) Date: 06/18/2023 OT eval and treat order received. Patient chart reviewed. Per Ortho note, Plan for ORIF od R distal humerus. Will hold evaluation till after surgery. Louisa Cespedes, OT Normal [facility] Progress Note PHYSICAL THERAPY [facility] Name/MRN: Ezra Gonzalez ([id number]) Date: 06/18/2023 PT orders received and chart reviewed. Per ortho note, Plan for ORIF R distal humerus. Will hold and attempt following surgery. Maryanne Nuemann, PT Normal [facility] ECG 12-LEADon 06-17-2023 ECG 12-LEAD IMPRESSION: Atrial fibrillation Probable left ventricular hypertrophy No previous ECG for comparison Electronically Signed On 06-17-2023 06:39:12 EDT by Thong Francois Normal [facility] ED Nursing Noteon 06-17-2023 ED Nursing Note Patient resting in bed at this time, equal unlabored respirations noted and no acute distress, call león within reach Di Reyna RN 06/17/23 1153 Normal [facility] ED Nursing Note Pt O2 desaturating t o mid 80s after receiving dilaudid IV. Pt placed on 2L NC and immediately back up to 95%. notified Alia Foster RN 06/17/23 1031 Normal [facility] ED Nursing Note Pt upset with intermittent beeping of IV pump. RN made several attempts to reposition arm and flush line. IV pump will run and then become occluded. After fourth attempt at repositioning, pt called RN a nitwit. RN explained that it is preferable to not place a new line unless necessary. RN will request US IV line. Juanjo Pringle, JAYME 06/16/23 2052 Normal [facility] Laboratory - Chemistry and C hemistry - challengeon 06-17-2023 Glucose [Mass/Vol] 137 mg/dL High 70 - 100 mg/dL [facility] - Coagulationon 0 06-17-2023 PT Coag (Bld) [Time] 14.5 s High 9.0 - 12.0 s [facility] No Panel Informationon 06-16 Interpretation and review of laboratory results Abnormal [facility] Performed by: [facility], [address] [place] [address] CLIA ID: [id number] [facility] Atrial fibrillation Probable left ventricular hypertrophy No previous ECG for comparison Electronically Signed On 06-17-2023 06:39:12 EDT by Thong Francois CV Thong Vázquez D O - 06/17/2023 IMPRESSION: Atrial fibrillation Probable left ventricular hypertrophy No previous ECG for comparison Electronically Signed On 06-17-2023 06:39:12 EDT by Thong Francois [facility] Radiology Study observation (narrative) Trina Oconnell chalo Pollard Panel InformationOrdered By: Thong Francois on 06-17-2023 P [place] 0 degrees [employer] Work Phone: [phone] AR Interval 0 ms [employer] [facility] Work Phone: QRS [place] -24 degrees [employer] Work Phone: QRSD Interval 103 ms [facility] Work Phone: QT Interval 382 ms [employer] Work Phone: QTC Interval 442 ms [employer] [place] Work Phone: [phone] 00 T Wave [place] 31 degrees [employer] Work Phone: [employer] Work Phone: Nursing Noteon 06-17-2023 Nursing Note Patient home medication list updated, provider made aware. Normal [facility] PROTHROMBIN TIMEon INR Coag (PPP) [Relative time] 1.4 {INR} High 0.9-1.1 [facility] Comment on above: Result Comment: Reji mmended Anticoagulant Therapy: SEE BELOW ----- INR of 2.0 - 3.0 : - Prophylaxis of Venous Thrombosis (high-risk surgery) - Treatment of Venous Thrombosis - Treatment of Pulmonary Embolism (Includes tissue heart valves, Acute Myocardial Infarction to prevent systemic embolism, Valvular Heart Disease, and Atrial Fibrillation) ----- INR of 2.5 - 3.5 : - Mechanical Prosthetic Valves (high risk) - If oral anticoagulant therapy is used to prevent Myocardial Infarction Performed By: #### L [id number] #### Bridge Design Engineer: ALEXANDRA BUSTAMANTE ([id number]) [facility] [employer]) [address] [place] [address] PT Coag (PPP) [Time] 14.5 s High 9.0-12.0 [facility] Comment on above: Performed By: #### L [id number] #### Bridge Design Engineer: ALEXANDRA BUSTAMANTE ([phone]) [facility] [employer]) [address] [place] [address] [facility] PT Coag (Bld) [Time]on 06-16 INR Coag (PPP) [Relative time] 1.4 {INR} High 0.9 - 1.1 [facility] Comment on above: Recommended Anticoag ulant Therapy: SEE BELOW ----- INR of 2.0 - 3.0 : - Prophylaxis of Venous Thrombosis (high-risk surgery) - Treatment of Venous Thrombosis - Treatment of Pulmonary Embolism (Includes tissue heart valves, Acute Myocardial Infarction to prevent systemic embolism, Valvular Heart Disease, and Atrial Fibrillation) ----- INR of 2.5 - 3.5 : - Mechanical Prosthetic Valves (high risk) - If oral anticoagulant therapy is used to prevent Myocardial Infarction Interpretation and review of laboratory results Abnormal [facility] Progress Noteon 06-17-2023 Progress Note Due to OR availability, case cancelled for today. Moved to tomorrow, 06/17. Ok for diet today. NPO @IN. Keep splint C/D/I. Evette Viera MD Orthopaedic Surgery, PGY-5 [id number] Normal [facility] Vital signsOrdered By: Neeta Francois on 06-17-2023 Heart rate 80 /min bpm [facility] Work Phone: XR Chest Single viewon 06-16 No acute cardiopulmonary process identified. Other chronic findings as discussed. Report Dictated on Electronically Signed By: Houston Chau MD Electronically Signed Date/Time: 06/17/2023 12:44 AM [facility] Patient Name: EZRA GONZALEZ : 1935 [facility]#: [id number] Exam Date/Time: 06/17/2023 00:38 Procedure: XR CHEST 1 VIEW Ordering Provider: CONDE NICHOLAS Reason For Exam: PRE-ANESTHESIA SEDATION CHEST X-RAY CLINICAL INDICATION: PRE-ANESTHESIA SEDATION TECHNIQUE: AP COMPARISON: None FINDINGS: Quality: Exam quality: EKG leads obscure small portions of the chest. Lines: None Cardiomediastinal Silhouette: The heart demonstrates normal size. Calcification of the thoracic aorta is noted. Lungs: Chronic appearing interstitial opacities are noted in the lungs bilaterally. No focal consolidation identified. No evidence of pleural effusion or pneumothorax. Soft tissue: The soft tissue structures appear unremarkable. Bones: Degenerative change of the thoracic spine is noted. 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 [facility] Houston Chau MD - 06/17/2023 Patient Name: EZRA GONZALEZ : 1935 [id number] Exam Date/Time: 06/17/2023 00:38 Procedure: XR CHEST 1 VIEW Ordering Provider: CONDE NICHOLAS Reason For Exam: PRE-ANESTHESIA SEDATION CHEST X-RAY CLINICAL INDICATION: PRE-ANESTHESIA SEDATION TECHNIQUE: AP COMPARISON: None FINDINGS: Quality: Exam quality: EKG leads obscure small portions of the chest. Lines: None Cardiomediastinal Silhouette: The heart demonstrates normal size. Calcification of the thoracic aorta is noted. Lungs: Chronic appearing interstitial opacities are noted in the lungs bilaterally. No focal consolidation identified. No evidence of pleural effusion or pneumothorax. Soft tissue: The soft tissue structures appear unremarkable. Bones: Degenerative change of the thoracic spine is noted. 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 IMPRESSION: No acute cardiopulmonary process identified. Other chronic findings as discussed. Report Dictated on Electronically Signed By: Houston Chau MD Electronically Signed Date/Time: 06/17/2023 12:44 AM EDT [facility] Radiology Study observation (narrative) [facility] XR Chest Single viewOrdered By: Houston Chau on 06-17-2023 [facility] Work Phone: Absolute lymphocyte countOrd ered By: Lali Pimentel on 06-16-2023 Lymphocytes Auto (Unsp spec) [#/Vol] 3.86 10*3/uL 0.83-4.51 [facility] Automated lymphocyte count a s percentage of total leukocytesOrdered By: Lali Pimentel on 06-16-2023 Lymphocytes/100 WBC Auto (Unsp spec) 23.0 % 19-41 [facility] BASIC METABOLIC PANELon 05-29 Anion gap [Moles/Vol] 7 mmol/L Normal 3-13 [facility] Comment on above: Performed By: #### L [id number] ####Bridge Design Engineer: ALEXANDRA BUSTAMANTE ([phone])[facility] ([facility])[address] [place] [address] Calcium [Mass/Vol] 8.6 mg/dL Normal 8.4-10.4 [facility] Comment on above: Performed By: #### L [id number] ####Bridge Design Engineer: ALEXANDRA BUSTAMANTE ([id number])[facility] [place] [address] [place] Chloride [Moles/Vol] 99 mmol/L Normal 98-107 [facility] Comment on above: Performed By: #### L [id number] ####Bridge Design Engineer: ALEXANDRA BUSTAMANTE ([id number])[facility] [place] [address] CO2 [Moles/Vol] 29 mmol/L Normal 22-30 [facility] Comment on above: Performed By: #### L [id number] ####Bridge Design Engineer: ALEXANDRA BUSTAMANTE ([phone])[facility] ([facility] [place] [address] [place] Creatinine [Mass/Vol] 0.79 mg/dL Normal 0.52-1.04 [facility] Comment on above: Performed By: #### L [id number] ####Bridge Design Engineer: ALEXANDRA BUSTAMANTE ([phone])[facility] ([facility])[address] [place] [address] [place] GLOMERULAR FILTRATION RATE ML/MIN/1.73 SQ M.PREDICTED 72.5 mL/min/1.73m*2 Normal >60.0 [facility] Comment on above: Result Comment: Calc ulation based on the Chronic Kidney Disease Epidemiology Collaboration (CKD-EPI) equation refit without adjustment for race Performed By: #### L [id number] ####Bridge Design Engineer: ALEXANDRA BUSTAMANTE ([id number])[facility] ([facility])[address] [place] [address] [place] Glucose [Mass/Vol] 186 mg/dL High 70-100 [facility] Comment on above: Performed By: #### L [id number] ####Bridge Design Engineer: ALXEANDRA BUSTAMANTE ([phone])[facility] ([facility])[address] [place] [address] Potassium [Moles/Vol] 4.5 mmol/L Normal 3.5-5.1 [facility] Comment on above: Performed By: #### L [id number] ####Bridge Design Engineer: ALEXANDRA BUSTAMANTE ([id number])[facility] ([facility])[address] [place] [address] Sodium [Moles/Vol] 136 mmol/L Normal 135-145 [facility] Comment on above: Performed By: #### L [id number] ####Bridge Design Engineer: ALEXANDRA BUSTAMANTE ([phone])[facility])[address] [place] [address] Urea nitrogen [Mass/Vol] 26 mg/dL High 7-17 [facility] Comment on above: Performed By: #### L [id number] ####Bridge Design Engineer: ALEXANDRA BUSTAMANTE ([id number])[facility] ([facility])[address] [place] [address] BLOOD TYPE AND SCREEN GELon 06-16-2023 ABO GROUPING A Normal [facility] Comment on above: Performed By: #### L [id number] ####Bridge Design Engineer: ALEXANDRA BUSTAMANTE ([id number])[facility] ([facility])[address] [place] [address] RH TYPE IN BLOOD Positive Normal [facility] Comment on above: Performed By: #### L [id number] ####Bridge Design Engineer: ALEXANDRA BUSTAMANTE ([id number])[facility] ([facility])[address] [place] [address] Basic metabolic 1998 panelon 06-16-2023 Anion gap [Moles/Vol] 7 mmol/L 3 - 13 mmol/L [facility] Calcium [Mass/Vol] 8.6 mg/dL 8.4 - 10. 4 mg/dL [facility] Chloride [Moles/Vol] 99 mmol/L 98 - 10 7 mmol/L [facility] CO2 [Moles/Vol] 29 mmol/L 22 - 30 mmol/L [facility] Creatinine [Mass/Vol] 0.79 mg/dL 0.52 - 1.04 mg/dL [facility] GFR/1.73 sq M.predicted MDRD (S/P/Bld) [Vol rate/Area] 72.5 mL/min/{1.73_m2} - PINF [facility] Comment on above: Calculation based on the Chronic Kidney Disease Epidemiology Collaboration (CKD-EPI) equation refit without adjustment for race Glucose [Mass/Vol] 186 mg/dL High 70 - 100 mg/dL [facility] Interpretation and review of laboratory results Abnormal [facility] Potassium [Moles/Vol] 4.5 mmol/L 3.5 - 5.1 mmol/L [facility] Sodium [Moles/Vol] 136 mmol/L 135 - 145 mmol/L [facility] Urea nitrogen [Mass/Vol] 26 mg/dL High 7 - 17 mg/d L [facility] Basophil percentageOrdered B y: Lali Pimentel on 06-16-2023 Basophils/100 WBC (Bld) 0.4 % 0-1 [facility] Chloride [Moles/Vol] 104 mmol/L 98-107 [facility] Eosinophils/100 WBC (Bld) 1.3 % 0-5 [facility] Glucose [Mass/Vol] 191 mg/dL 74-106 [facility] Comment on above: Fasting Glucose resu lt greater than or equal to 126 mg/dL suggests DIABETES MELLITUS per A.D.A. criteria. Hemoglobin (Bld) [Mass/Vol] 13.6 g/dL 12.0-15.0 [facility] Monocytes/100 WBC (Bld) 7.0 % 0-10 [facility] Neutrophils (Bld) [#/Vol] 11.4 10*3/uL 2.0-7.7 [facility] Neutrophils/100 WBC (Bld) 67.8 % 47-70 [facility] Potassium [Moles/Vol] 3.4 mmol/L 3.5-5.1 [facility] Sodium [Moles/Vol] 140 mmol/L 136-145 [facility] WBC (Bld) [#/Vol] 16.8 10*3/uL 4.4-11.0 [facility] Blood type and Crossmatch pa ro (Bld)on 06-16-2023 Blood group antibody screen GEL Ql Negative [facility] CBC W Auto Differential pane l (Bld)on 06-16-2023 Basophils (Bld) [#/Vol] 0.0 10*3/uL 0.0 - 0.2 10*3/uL [facility] Basophils/100 WBC (Bld) 0.2 % 0.0 - 2.0 % [facility] Eosinophils (Bld) [#/Vol] 0.0 10*3/uL 0. 0 - 0.5 10*3/uL [facility] Eosinophils/100 WBC (Bld) 0.0 % 0.0 - 6.0 % [facility] Erythrocyte distribution width (RBC) [Ratio] 13.6 % 11.5 - 15.0 % [facility] Hematocrit (Bld) [Volume fraction] 38.9 % 35.0 - 47.0 % [facility] Hemoglobin (Bld) [Mass/Vol] 12.8 g/dL 11.7 - 16.0 g/dL [facility] Immature granulocytes (Bld) [#/Vol] 0.1 10*3/uL High NINF - 0.1 10*3/uL [facility] Immature granulocytes/100 WBC (Bld) 0.6 % 0.0 - 2.0 % [facility] Interpretation and review of laboratory results Abnormal [facility] th Lymphocytes (Bld) [#/Vol] 1.1 10*3/uL 1. 0 - 4.3 10*3/uL [facility] Lymphocytes/100 WBC (Bld) 6.5 % Low 15 .0 - 45.0 % [facility] MCH (RBC) [Entitic mass] 29.1 pg 26. 0 - 34.0 pg [facility] MCHC (RBC) [Mass/Vol] 32.9 % 30.5 - 36.0 % [facility] MCV (RBC) [Entitic vol] 88.4 fL 77.0 - 99.0 fL [facility] Monocytes (Bld) [#/Vol] 0.7 10*3/uL 0.0 - 0.9 10*3/uL [facility] Monocytes/100 WBC (Bld) 4.4 % Low 5.0 - 13.0 % [facility] Neutrophils (Bld) [#/Vol] 14.3 10*3/uL High 1. 8 - 7.5 10*3/uL [facility] Neutrophils/100 WBC (Bld) 88.3 % High 38 .0 - 82.0 % [facility] Nucleated RBC/100 WBC (Bld) [Ratio] 0.0 % [facility] Platelet mean volume (Bld) [Entitic vol] 9.9 fL 9.0 - 12.7 fL [facility] Platelets (Bld) [#/Vol] 357 10*3/uL 140 - 440 10*3/uL [facility] RBC (Bld) [#/Vol] 4.40 10*6/uL 3.80 - 5.2 0 10*6/uL [facility] WBC (Bld) [#/Vol] 16.2 10*3/uL High 3.6 - 10.7 10*3/uL [facility] CBC WITH AUTO DIFFERENTIALon 06-16-2023 Basophils (Bld) [#/Vol] 0.0 10*3/uL Normal 0.0-0.2 [facility] Comment on above: Performed By: #### L [id number] ####Bridge Design Engineer: ALEXANDRA BUSTAMANTE ([phone])[facility])[address] [place] [address] Basophils/100 WBC (Bld) 0.2 % Normal 0.0-2.0 [facility] Comment on above: Performed By: #### L [id number] ####Bridge Design Engineer: ALEXANDRA BUSTAMANTE ([phone])[facility])[address] [place] [address] [place] Eosinophils (Bld) [#/Vol] 0.0 10*3/uL Normal 0.0-0.5 [facility] Comment on above: Performed By: #### L [id number] ####Bridge Design Engineer: ALEXANDRA [id number])[facility])[address] [place] [address] [place] Eosinophils/100 WBC (Bld) 0.0 % Normal 0.0-6.0 [facility] Comment on above: Performed By: #### L [id number] ####Bridge Design Engineer: ALEXANDRA [id number])[facility])[address] [place] [address] Erythrocyte distribution width (RBC) [Ratio] 13.6 % Normal 11.5-15.0 [facility] Comment on above: Performed By: #### L [id number] ####Bridge Design Engineer: ALEXANDRA BUSTAMANTE ([id number])[facility])[address] [place] [address] Hematocrit (Bld) [Volume fraction] 38.9 % Normal 35.0-47.0 [facility] Comment on above: Performed By: #### L [id number] ####Bridge Design Engineer: ALEXANDRA BUSTAMANTE ([id number])[facility])[address] [place] [address] Hemoglobin (Bld) [Mass/Vol] 12.8 g/dL Normal 11.7-16.0 [facility] Comment on above: Performed By: #### L [id number] ####Bridge Design Engineer: ALEXANDRA BUSTAMANTE ([id number])[facility] ([facility])[address] [place] [address] IMMATURE GRANS % 0.6 % Normal 0.0-2.0 [facility] Comment on above: Performed By: #### L [id number] ####Bridge Design Engineer: ALEXANDRA BUSTAMANTE ([id number])[facility])[address] [place] [address] IMMATURE GRANS ABSOLUTE 0.1 10*3/uL High <0.1 [facility] Comment on above: Performed By: #### L [id number] ####Bridge Design Engineer: ALEXANDRA BUSTAMANTE ([id number])[facility] ([facility])[address] [place] [address] [place] Lymphocytes (Bld) [#/Vol] 1.1 10*3/uL Normal 1.0-4.3 [facility] Comment on above: Performed By: #### L [id number] ####Bridge Design Engineer: ALEXANDRA BUSTAMANTE ([id number])[facility])[address] [place] [address] [place] Lymphocytes/100 WBC (Bld) 6.5 % Low 15.0-45.0 [facility] Comment on above: Performed By: #### L [id number] ####Bridge Design Engineer: ALEXANDRA BUSTAMANTE ([id number])[facility])[address] [place] [address] MCH (RBC) [Entitic mass] 29.1 pg Normal 26.0-34.0 [facility] Comment on above: Performed By: #### L [id number] ####Bridge Design Engineer: ALEXANDRA BUSTAMANTE ([phone])[facility])[address] [place] [address] MCHC 32.9 % Normal 30.5-36.0 [facility] Comment on above: Performed By: #### L [id number] ####Bridge Design Engineer: ALEXANDRA BUSTAMANTE ([id number])[facility])[address] [place] [address] MCV (RBC) [Entitic vol] 88.4 fL Normal 77.0-99.0 [facility] Comment on above: Performed By: #### L [id number] ####Bridge Design Engineer: ALEXANDRA BUSTAMANTE ([id number])[facility])[address] [place] [address] Monocytes (Bld) [#/Vol] 0.7 10*3/uL Normal 0.0-0.9 [facility] Comment on above: Performed By: #### L [id number] ####Bridge Design Engineer: ALEXANDRA BUSTAMANTE ([phone])[facility])[address] [place] [address] Monocytes/100 WBC (Bld) 4.4 % Low 5.0-13.0 [facility] Comment on above: Performed By: #### L [id number] ####Bridge Design Engineer: ALEXANDRA BUSTAMANTE ([phone])[facility])[address] [place] [address] NEUTROPHILS ABSOLUTE 14.3 10*3/uL High 1.8-7.5 [facility] Comment on above: Performed By: #### L [id number] ####Bridge Design Engineer: ALEXANDRA BUSTAMANTE ([id number])[facility] ([facility])[address] [place] [address] Neutrophils/100 WBC (Bld) 88.3 % High 38.0-82.0 [facility] Comment on above: Performed By: #### L [id number] ####Bridge Design Engineer: ALEXANDRA BUTSAMANTE ([id number])[facility] ([facility])[address] [place] [address] NRBC 0.0 /100 WBCs Normal 0.0-2.0 [facility] Comment on above: Performed By: #### L [id number] ####Bridge Design Engineer: ALEXANDRA BUSTAMANTE ([phone])[facility])[address] [place] [address] Platelet mean volume (Bld) [Entitic vol] 9.9 fL Normal 9.0-12.7 [facility] Comment on above: Performed By: #### L [id number] ####Bridge Design Engineer: ALEXANDRA BUSTAMANTE ([id number])[facility] ([facility])[address] [place] [address] Platelets (Bld) [#/Vol] 357 10*3/uL Normal 140-440 [facility] Comment on above: Performed By: #### L [id number] ####Bridge Design Engineer: ALEXANDRA BUSTAMANTE ([id number])[facility])[address] [place] [address] RBC (Bld) [#/Vol] 4.40 10*6/uL Normal 3.80-5.20 [facility] Comment on above: Performed By: #### L [id number] ####Bridge Design Engineer: ALEXANDRA BUSTAMANTE ([id number])[facility])[address] [place] [address] WBC (Bld) [#/Vol] 16.2 10*3/uL High 3.6-10.7 [facility] Comment on above: Performed By: #### L [id number] ####Bridge Design Engineer: ALEXANDRA BUSTAMANTE ([phone])[facility] ([facility])[address] [place] [address] CT ELBOW RIGHT WO IV CONTRAS Ton 06-16-2023 CT ELBOW RIGHT WO IV CONTRAST Patient Name: EZRA GONZALEZ : 1935 Exam Date/Time: 06/16/2023 18:01 Procedure: CT ELBOW RIGHT WO IV CONTRAST Ordering Provider: CONDE NICHOLAS Reason For Exam: surgical planning Examination: CT right elbow without contrast Technique: 1 mm axial images were obtained through the right elbow without intravenous contrast. Sagittal and coronal reformatted images were reviewed. Dose reduction was employed with automated exposure control. 3-D and surface-shaded reconstructions were performed by myself on an independent workstation at the time of dictation to better evaluate the bony structures. Clinical Indication: Pain. Fracture. Comparison: Correlation with radiographs earlier on 06/16/2023 Findings: Extensively comminuted supracondylar humerus fracture. The fracture has multiple foci of articular extension to the lateral and central aspect of the condyle. The largest lateral condyle fracture is displaced anteriorly and peripherally/laterall y. No significant radiocapitellar or ulnotrochlear subluxation. No evidence of a radial head or olecranon process fracture. Joint effusion. Decreased osseous mineralization. IMPRESSION: Impression: Extensively comminuted supracondylar humerus fracture. The fracture has multiple foci of articular extension to the lateral and central aspect of the condyle. Report Dictated on Electronically Signed By: Pastor Francisco MD Electronically Signed Date/Time: 06/16/2023 6:13 PM EDT Arm Injury (Pt arrives [facility] with complaints of right elbow fracture. Patient was sent here for ortho consult. No pain on arrival. Arrives with right arm splinted.)Closed displaced fracture of medial condyle of right humerus, initial encounter Normal [facility] CT Elbow - right WO contrast on 06-16-2023 Impression: Extensively comminuted supracondylar humerus fracture. The fracture has multiple foci of articular extension to the lateral and central aspect of the condyle. Report Dictated on Electronically Signed By: Pastor Francisco MD Electronically Signed Date/Time: 06/16/2023 6:13 PM EDT [facility] Patient Name: [facility]ZRA [facility]ON[facility]ALEZ : 1935 [id number] Exam Date/Time: 06/16/2023 18:01 Procedure: CT ELBOW RIGHT WO IV CONTRAST Ordering Provider: CONDE NICHOLAS Reason For Exam: surgical planning Examination: CT right elbow without contrast Technique: 1 mm axial images were obtained through the right elbow without intravenous contrast. Sagittal and coronal reformatted images were reviewed. Dose reduction was employed with automated exposure control. 3-D and surface-shaded reconstructions were performed by myself on an independent workstation at the time of dictation to better evaluate the bony structures. Clinical Indication: Pain. Fracture. Comparison: Correlation with radiographs earlier on 06/16/2023 Findings: Extensively comminuted supracondylar humerus fracture. The fracture has multiple foci of articular extension to the lateral and central aspect of the condyle. The largest lateral condyle fracture is displaced anteriorly and peripherally/laterall y. No significant radiocapitellar or ulnotrochlear subluxation. No evidence of a radial head or olecranon process fracture. Joint effusion. Decreased osseous mineralization. [facility] Pastor Francisco MD - 06/16/2023 Patient Name: EZRA GONZALEZ : 1935 Exam Date/Time: 06/16/2023 18:01 Procedure: CT ELBOW RIGHT WO IV CONTRAST Ordering Provider: CONDE NICHOLAS Reason For Exam: surgical planning Examination: CT right elbow without contrast Technique: 1 mm axial images were obtained through the right elbow without intravenous contrast. Sagittal and coronal reformatted images were reviewed. Dose reduction was employed with automated exposure control. 3-D and surface-shaded reconstructions were performed by myself on an independent workstation at the time of dictation to better evaluate the bony structures. Clinical Indication: Pain. Fracture. Comparison: Correlation with radiographs earlier on 06/16/2023 Findings: Extensively comminuted supracondylar humerus fracture. The fracture has multiple foci of articular extension to the lateral and central aspect of the condyle. The largest lateral condyle fracture is displaced anteriorly and peripherally/laterall y. No significant radiocapitellar or ulnotrochlear subluxation. No evidence of a radial head or olecranon process fracture. Joint effusion. Decreased osseous mineralization. IMPRESSION: Impression: Extensively comminuted supracondylar humerus fracture. The fracture has multiple foci of articular extension to the lateral and central aspect of the condyle. Report Dictated on Electronically Signed By: Pastor Francisco MD Electronically Signed Date/Time: 06/16/2023 6:13 PM EDT [facility] Radiology Study observation (narrative) [facility] Consulton 06-16-2023 Consult Ortho Consult Patient: Ezra Gonzalez Date of : 1935 Acct: [id number] PCP: No primary care provider on file. Date of Admission: 06/16/2023 Date of Service: Pt seen/examined on 06/16/2023 Chief Complaint: right distal humerus fracture History Of Present Illness: This is a 87 y.o. right hand dominant female who presents with a right distal humerus fracture after a fall at home. Patient originally presented to [facility] where she was splinted and transferred to [facility] ED for ortho eval. Patient denies numbness, tingling, or weakness. Denies pain elsewhere and denies head trauma or LOC. 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 Patient has prior ortho surgery history of bilateral TKAs and right shoulder surgery, left carpal tunnel release, all at [facility]. Denies alcohol, tobacco, drug use. Patient ambulation status: ambulates with: walker. Antiplatelets/Anticoa gulation includes: warfarin. Profession/Employment : retired Past Medical History: No past medical history on file. Past Surgical History: No past surgical history on file. Home Medications: Prior to Admission medications Not on File Current Hospital Medications: No current facility-administered medications for this encounter. No current outpatient medications on file. Allergies: Demerol hcl [meperidine] Social History: Social History Socioeconomic History Marital status: Not on file Spouse name: Not on file Number of children: Not on file Years of education: Not on file Highest education level: Not on file Occupational History Not on file Tobacco Use Smoking status: Not on file Smokeless tobacco: Not on file Substance and Sexual Activity Alcohol use: Not on file Drug use: Not on file Sexual activity: Not on file Other Topics Concern Not on file Social History Narrative Not on file Social Determinants of Health Financial Resource Strain: Not on file Food Insecurity: Not on file Transportation Needs: Not on file Physical Activity: Not on file Stress: Not on file Social Connections: Not on file Intimate Partner Violence: Not on file Housing Stability: Not on file Family History: No family history on file. Further Family History is noncontributory to this injury. REVIEW OF SYSTEMS: Review of Systems - General ROS: negative for - chills, fatigue, fever, malaise or night sweats Psychological ROS: negative Ophthalmic ROS: negative ENT ROS: negative for - headaches or sore throat Hematological and Lymphatic ROS: negative for - bleeding problems or blood clots Respiratory ROS: no cough, shortness of breath, or wheezing Cardiovascular ROS: no chest pain or dyspnea on exertion Gastrointestinal ROS: negative Musculoskeletal ROS: See HPI Neurological ROS: negative for - bowel and bladder control changes, gait disturbance or numbness/tingling All other systems reviewed and are negative PHYSICAL EXAM: BP (!) 136/100 Pulse 87 Temp 36.7 ?C (98.1 ?F) (Oral) Resp 19 Ht 1.6 m (5' 3) Wt 78.9 kg (174 lb) SpO2 97% BMI 30.82 kg/m? GENERAL APPEARANCE: Awake and oriented x3. No acute distress, except appropriate to injury. MOOD AND AFFECT: Calm appropriate to situation GAIT AND STATION: Patient is in bed and able to ambulate REFLEXES: not assessed COORDINATION and BALANCE: Patient is grossly coordinated Lymphadenopathy: none on examination of the affected extremity(s) Right Upper Extremity: -No obvious pain or deformity to inspection with normal joint range of motion, stability, and muscle strength except noted below -No TTP over clavicle, forearm, wrist, hand, or fingers -TTP: Shoulder, Humerus, and Elbow -Radial pulse palpable -SILT in radial/median/ ulnar nerve distributions -Motor + AIN/PIN/ulnar nerve functions -No Lymphedema -Skin intact except where noted below -Painless pROM at shoulder/wrist Ecchymosis and swelling about the elbow. No open wounds. Palpable crepitus of the elbow joint with palpation/pROM. TTP of the anterior shoulder. No open wounds. Left Upper Extremity: -No obvious pain or deformity to inspection with normal joint range of motion, stability, and muscle strength except noted below -No TTP over clavicle, shoulder, humerus, elbow, forearm, wrist, hand, or fingers -TTP: nontender throughout extremity -Radial pulse palpable -SILT in radial/median/ ulnar nerve distributions -Motor + AIN/PIN/ulnar nerve functions -No Lymphedema -Skin intact except where noted below -Painless pROM at shoulder/elbow/wrist Labs: CBC: Lab Results Component Value Date WBC 16.2 (H) 06/16/2023 RBC 4.40 06/16/2023 BMP: Lab Results Component Value Date GLUCOSE 186 (H) 06/16/2023 CO2 29 06/16/2023 BUN 26 (H) 06/16/2023 CREATININE 0.79 06/16/2023 CALCIUM 8.6 06/16/2023 PT/INR: Lab Results Component Value Date INR 2.2 (H) 06/16/2023 Type and Screen: No results found for: RH, LAB (more content not included)... Normal [facility] Determination of erythrocyte mean corpuscular volume (MCV)Ordered By: Lali Pimentel on 06-16-2023 MCV (RBC) [Entitic vol] 90.3 fL 81-99 [facility] ED Provider Noteon 4 ED Provider Note Emergency Department Encounter [facility] EMERGENCY DEPT Patient: Ezra Gonzalez : 1935 Date of Evaluation: 06/16/2023 ED Supervising Physician: Sae Conde MD I personally saw Ezra Gonzalez and made/approved the management plan and take responsibility for the patient management. This will serve as my Supervisory note and shared attestation. I did perform a substantive portion of the visit including all aspects of the Medical Decision Making. HPI In brief, Ezra Gonzalez is a 87 y.o. female PMH reports history of dementia, home medication including Coumadin, presents with concern for right arm injury. Patient reports today she tripped and fell injuring her right arm, was seen at outside hospital where she was diagnosed with a distal humerus fracture, placed in splint, CT head obtained, transferred for orthopedic surgery evaluation. Patient reports she tripped and fell today, endorses isolated injury involving the right arm, denies pain or injury elsewhere including the head or neck, chest abdomen or pelvis, back, extremities otherwise, denies numbness or weakness, or other symptoms or concerns. Physical Exam Gen: alert, no acute distress Eye: normal conjunctiva, pupils midsized, symmetrical Neck: No midline cervical tenderness, step-offs or deformities HEENT: No visible facial trauma, no scalp contusion, no scalp tenderness Respiratory: nonlabored respiration, bilateral breath sounds present, no chest wall tenderness Cardiovascular: Normal rate, regular rhythm, distal pulses palpable in all extremities Gastrointestinal: Soft, nontender, nondistended Integumentary: Warm, dry, intact Musculoskeletal: RUE: Right arm in splint, wiggles right fingers, right hand warm and well-perfused, right radial pulse palpable LUE: No tenderness or deformity RLE: No tenderness or deformity LLE: No tenderness or deformity Back: No midline thoracic or lumbar tenderness step-offs or deformities Neurologic: Alert and oriented, nonslurred speech, answering questions appropriately, GCS 15 no focal deficits, gross motor and sensory intact throughout bilateral upper and lower extremities, wiggles right fingers, sensation intact right hand Brief ED course/MDM Patient is an 87-year-old female, presents as above, transfer from outside hospital with concern for distal humerus fracture, denies pain or injury elsewhere, she arrives afebrile hypertensive otherwise reassuring vitals, on anticoagulation, will upload imaging, obtain laboratory evaluation, consult orthopedic surgery. Per review of outside hospital documentation, CT head no acute findings, chronic involutional changes, right elbow x-ray, comminuted slightly displaced supracondylar fracture of the distal humerus with extension into the medial condyle, joint effusion and soft tissue swelling, chest x-ray stable increased markings at the lung bases suggestive of bibasilar scarring with blunting of both costophrenic angle Labs obtained, interpreted by me, notable for no renal dysfunction, WBC 16.2, INR is 2.2, UA pending All diagnostic, treatment, and disposition decisions were made by myself in conjunction with the SHIRLENE. For all further details of the patient's emergency department visit, please see their documentation. (Comment: Please note this report has been produced using speech recognition software and may contain errors related to that system including errors in grammar, punctuation, and spelling, as well as words and phrases that may be inappropriate. If there are any questions or concerns please feel free to contact the dictating provider for clarification.) Sae Conde MD [employer] Sae Conde MD 06/16/23 1626 [facility] ED Provider Note EMERGENCY DEPARTMENT ENCOUNTER Pt Name: Ezra Gonzalez Birthdate 1935 Date of evaluation: 06/16/2023 ED Provider: NADIA Ruiz CHIEF COMPLAINT Chief Complaint Patient presents with Arm Injury Pt arrives via physician's ambulance from [facility] with complaints of right elbow fracture. Patient was sent here for ortho consult. No pain on arrival. Arrives with right arm splinted. HISTORY OF PRESENT ILLNESS (Location/Symptom, Timing/Onset, Context/Setting, Quality, Duration, Modifying Factors, Severity) Note limiting factors. I wore appropriate PPE for the entirety of this encounter. HPI Ezra Gonzalez is a 87 y.o. female who presents to the emergency department for evaluation of right arm injury after a mechanical fall that occurred this morning. Patient reports that she tripped over a cord in her bedroom and landed on her right elbow. Denies any head injury. Denies any loss consciousness. Patient reports that she is currently on Coumadin. Denies any pain or injury anywhere else. Patient was evaluated at [facility] emergency department prior to arrival and was noted to have a distal humerus fracture. Patient was transferred to [facility] ED for orthopedic consultation. Patient denies any dizziness, lightheadedness. Denies any chest pain or shortness of breath. Denies pain or injury anywhere else. Nursing Notes were reviewed. Limitations to history: None Outside historians: None REVIEW OF SYSTEMS Review of Systems 6 systems reviewed, positives and pertinent negatives as per HPI. All other systems were reviewed and are negative. PAST MEDICAL HISTORY No past medical history on file. SURGICAL HISTORY No past surgical history on file. CURRENT MEDICATIONS Previous Medications No medications on file ALLERGIES Demerol hcl [meperidine] FAMILY HISTORY No family history on file. SOCIAL HISTORY Social History Socioeconomic History Marital status: SCREENINGS PHYSICAL EXAM ED Triage Vitals [06/16/23 1339] Temp Heart Rate Resp BP 36.7 ?C (98.1 ?F) 82 17 (!) 180/90 SpO2 Temp Source Heart Rate Source Patient Position 97 % Oral -- -- BP Location FiO2 (%) Left arm -- Physical Exam Vitals and nursing note reviewed. Constitutional: General: She is not in acute distress. Appearance: She is not toxic-appearing. Comments: 87-year-old female who does not appear to be in acute distress or discomfort. HENT: Head: Normocephalic and atraumatic. Comments: No obvious head or facial trauma noted. Nose: Nose normal. Eyes: Conjunctiva/sclera: Conjunctivae normal. Neck: Comments: No tenderness to palpation midline of cervical spine. Cardiovascular: Rate and Rhythm: Normal rate and regular rhythm. Pulses: Normal pulses. Heart sounds: Normal heart sounds. Pulmonary: Effort: Pulmonary effort is normal. Breath sounds: Normal breath sounds. Musculoskeletal: Cervical back: Normal range of motion and neck supple. Comments: Splint in place of right arm. Radial pulse 2+. Patient is neurovascularly intact distally to splint placement. Skin: General: Skin is warm and dry. Capillary Refill: Capillary refill takes less than 2 seconds. Neurological: General: No focal deficit present. Mental Status: She is alert and oriented to person, place, and time. Psychiatric: Mood and Affect: Mood normal. DIAGNOSTIC RESULTS RADIOLOGY (Per Emergency Physician): Interpretation per the Radiologist below, if available at the time of this note: XR elbow 1 or 2 views right Final Result XR shoulder 2+ views right Final Result No acute fracture within constraints of osteopenia. High riding humeral head with abutment and degenerative changes at the inferior aspect of the acromion, suggestive of chronic rotator cuff pathology. Advanced degenerative changes at the superior aspect of the glenohumeral joint. Report Dictated on Electronically Signed By: Reji Lemus MD Electronically Signed Date/Time: 06/16/2023 3:30 PM EDT XR elbow 3+ views right Final Result Findings/Impression: AP, lateral, and oblique views of the right elbow are provided. The exam details are limited by splint material. Known, comminuted and displaced supracondylar humerus fracture, with likely areas of intra-articular extension, probably the medial condyle. Joint effusion. Consider follow-up radiographs and/or CT. Report Dictated on Electronically Signed By: Pastor Francisco MD Electronically Signed Date/Time: 06/16/2023 3:[address] elbow right wo IV contrast (Results Pending) LABS: Labs Reviewed CBC WITH AUTO DIFFERENTIAL - Abnormal Result Value Auto WBC 16.2 (*) RBC 4.40 Hemoglobin 12.8 Hematocrit 38.9 MCV 88.4 MCH 29.1 MCHC 32.9 RDW 13.6 Platelets 357 MPV 9.9 nRBC 0.0 Neutrophils Relative 88.3 (*) Lymphocytes Relative 6.5 (*) Monocytes Relative 4.4 (*) (more content not included)... Normal [facility] Erythrocyte distribution wid th ratioOrdered By: Lali Pimentel on 06-16-2023 Erythrocyte distribution width (RBC) [Ratio] 13.3 % 11.6-14.6 [facility] Erythrocyte distribution wid th standard deviationOrdered By: Lali Pimentel on 06-16-2023 Erythrocyte distribution width (RBC) [Entitic vol] 43.9 fL 35.1-43.9 [facility] Hematocrit Auto (Bld) [Volum e fraction]Ordered By: Lali Pimentel on 06-16-2023 Hematocrit (Bld) [Volume fraction] 42.6 % 37-47 [facility] Immature granulocytes/100 WB C Auto (Bld)Ordered By: Lali Pimentel on 06-16-2023 Immature granulocytes/100 WBC (Bld) 0.500 % 0.0-0.9 [facility] Comment on above: IG% - Immature Granu locytes (promyelocytes, myelocytes and metamyelocytes) > 1% indicates that a LEFT SHIFT is Present. Laboratory - Blood bankon ABO group Nom (Bld) A [facility] D Ag Ql (RBC) Positive [facility] - Chemistry and C hemistry - challengeOrdered By: Lali Pimentel on 06-16-2023 CO2 [Moles/Vol] 31.0 mmol/L 21.0-32.0 [facility] Urea nitrogen/Creatinine [Mass ratio] 20.9 mg/mg 10-20 [facility] Laboratory - Coagulationon 0 06-16-2023 PT Coag (Bld) [Time] 22.3 s High 9.0 - 12.0 s [facility] Laboratory - CoagulationOrde red By: Lali Pimentel on 06-16-2023 INR Coag (Bld) [Relative time] 2.2 {INR} [facility] PT Coag (PPP) [Time] 24.3 s 11.7-14.9 [facility] Laboratory - Hematology and Cell countsOrdered By: Lali Pimentel on 06-16-2023 MCH (RBC) [Entitic mass] 28.8 pg 27.0-32.0 [facility] MCHC (RBC) [Mass/Vol] 31.9 g/dL 32-36 [facility] Nucleated RBC/100 WBC (Bld) [Ratio] 0 % 0-5 [facility] Platelet mean volume (Bld) [Entitic vol] 9.9 fL 6.2-12.0 [facility] Platelets (Bld) [#/Vol] 414 10*3/uL 150-450 [facility] No Panel Informationon 06-15 [facility] No Panel InformationOrdered By: Lali Pimentel on 06-16-2023 Estimated Creatinine Clearance Calc 35.56 ml/min [facility] Estimated GFR (MDRD) Amer 57 mL/min >60 [facility] Comment on above: GFR Calc Estimated GFR (MDRD) Non-Af Amer 47 mL/min >60 [facility] Comment on above: Non- GFR Calc PROTHROMBIN TIMEon INR Coag (PPP) [Relative time] 2.2 {INR} High 0.9-1.1 [facility] Comment on above: Result Comment: Reji mmended Anticoagulant Therapy: SEE BELOW ----- INR of 2.0 - 3.0 : - Prophylaxis of Venous Thrombosis (high-risk surgery) - Treatment of Venous Thrombosis - Treatment of Pulmonary Embolism (Includes tissue heart valves, Acute Myocardial Infarction to prevent systemic embolism, Valvular Heart Disease, and Atrial Fibrillation) ----- INR of 2.5 - 3.5 : - Mechanical Prosthetic Valves (high risk) - If oral anticoagulant therapy is used to prevent Myocardial Infarction Performed By: #### L [id number] ####Bridge Design Engineer: ALEXANDRA BUSTAMANTE ([id number])[place] [address] [facility] PT Coag (PPP) [Time] 22.3 s High 9.0-12.0 [facility] Comment on above: Performed By: #### L [id number] ####Bridge Design Engineer: ALEXANDRA BUSTAMANTE ([id number])[facility] ([facility])[address] [id number] [facility] PT Coag (Bld) [Time]on 06-15 INR Coag (PPP) [Relative time] 2.2 {INR} High 0.9 - 1.1 [facility] Comment on above: Recommended Anticoag ulant Therapy: SEE BELOW ----- INR of 2.0 - 3.0 : - Prophylaxis of Venous Thrombosis (high-risk surgery) - Treatment of Venous Thrombosis - Treatment of Pulmonary Embolism (Includes tissue heart valves, Acute Myocardial Infarction to prevent systemic embolism, Valvular Heart Disease, and Atrial Fibrillation) ----- INR of 2.5 - 3.5 : - Mechanical Prosthetic Valves (high risk) - If oral anticoagulant therapy is used to prevent Myocardial Infarction Interpretation and review of laboratory results Abnormal [facility] RBC Auto (Bld) [#/Vol]Ordere d By: Lali Pimentel on 06-16-2023 RBC (Bld) [#/Vol] 4.72 10*6/uL 4.2-5.4 [facility] Serum or plasma calcium viktoria urement (mass/volume)Ordered By: Lali Pimentel on 06-16-2023 Calcium [Mass/Vol] 8.8 mg/dL 8.5-10.1 [facility] Serum or plasma creatinine m easurement (mass/volume)Ordered By: Lali Pimentel on 06-16-2023 Creatinine [Mass/Vol] 1.15 mg/dL 0.55-1.02 [facility] Comment on above: The validity of the calculated GFR & GFRAA in patients over 70 years has not been determined. Clinical correlation is essential. Serum or plasma urea nitroge n measurement (mass/volume)Ordered By: Lali Pimentel on 06-16-2023 Urea nitrogen [Mass/Vol] 24 mg/dL 10-15 [facility] Thin prep Papanicolaou smear with manual screeningOrdered By: Lail Pimentel on 06-16-2023 Thin prep Papanicolaou smear with manual screening 5 5-15 [facility] XR Elbow - right 2 Viewson 0 06-16-2023 Patient Name: [facility]ZRA [facility]ONZALEZ : 1935 [id number] Exam Date/Time: 06/16/2023 15:20 Procedure: XR ELBOW 1-2 VIEWS RIGHT Ordering Provider: CONDE NICHOLAS Reason For Exam: right distal humerus fracture RIGHT ELBOW: CLINICAL INDICATION: Distal humeral fracture. TECHNIQUE: AP only COMPARISON: 06/16/2023 at 2:22 PM FINDINGS: Single view demonstrating a distal humeral fracture, in improved anatomic alignment compared to the AP view from the previous study. Adjacent soft tissue swelling is present. Otherwise, limited study on this single projection. Report Dictated on Electronically Signed By: Sae Dudley MD Electronically Signed Date/Time: 06/16/2023 3:38 PM EDT [facility] Sae Dudley MD - 06/16/2023 Patient Name: EZRA GONZALEZ : 1935 Exam Date/Time: 06/16/2023 15:20 Procedure: XR ELBOW 1-2 VIEWS RIGHT Ordering Provider: CONDE NICHOLAS Reason For Exam: right distal humerus fracture RIGHT ELBOW: CLINICAL INDICATION: Distal humeral fracture. TECHNIQUE: AP only COMPARISON: 06/16/2023 at 2:22 PM FINDINGS: Single view demonstrating a distal humeral fracture, in improved anatomic alignment compared to the AP view from the previous study. Adjacent soft tissue swelling is present. Otherwise, limited study on this single projection. Report Dictated on Electronically Signed By: Sae Dudley MD Electronically Signed Date/Time: 06/16/2023 3:38 PM EDT [facility] Radiology Study observation (narrative) Trina isabel XR Elbow - right 2 ViewsOrde red By: Sae Dudley on 06-16-2023 [email or web address] [place] Work Phone: XR Elbow - right 3 Viewson 0 06-16-2023 Findings/Impression: AP, lateral, and oblique views of the right elbow are provided. The exam details are limited by splint material. Known, comminuted and displaced supracondylar humerus fracture, with likely areas of intra-articular extension, probably the medial condyle. Joint effusion. Consider follow-up radiographs and/or CT. Report Dictated on Electronically Signed By: Pastor Francisco MD Electronically Signed Date/Time: 06/16/2023 3:24 PM EDT [facility] Patient Name: EZRA GONZALEZ : 1935 Exam Date/Time: 06/16/2023 14:30 Procedure: XR ELBOW 3+ VIEWS RIGHT Ordering Provider: TENORIO KASSIDY Reason For Exam: comminuted slightly displaced supracondylar fx of distal humerus with extension to the medial epicondyle - seen at [place] cannot see imaging Examination: Right elbow Clinical Indication: Pain Comparison: None [facility] Pastor Francisco MD - 06/16/2023 Patient Name: EZRA GONZALEZ : 1935 Exam Date/Time: 06/16/2023 14:30 Procedure: XR ELBOW 3+ VIEWS RIGHT Ordering Provider: TENORIO KASSIDY Reason For Exam: comminuted slightly displaced supracondylar fx of distal humerus with extension to the medial epicondyle - seen at [place] cannot see imaging Examination: Right elbow Clinical Indication: Pain Comparison: None IMPRESSION: Findings/Impression: AP, lateral, and oblique views of the right elbow are provided. The exam details are limited by splint material. Known, comminuted and displaced supracondylar humerus fracture, with likely areas of intra-articular extension, probably the medial condyle. Joint effusion. Consider follow-up radiographs and/or CT. Report Dictated on Electronically Signed By: Pastor Francisco MD Electronically Signed Date/Time: 06/16/2023 3:24 PM T [facility] Radiology Study observation (narrative) Trina Oconnell alth XR Elbow - right 3 ViewsOrde red By: Pastor Francisco on 06-16-2023 [facility] Work Phone: XR Shoulder - right 2 Viewso n 06-16-2023 No acute fracture within constraints of osteopenia. High riding humeral head with abutment and degenerative changes at the inferior aspect of the acromion, suggestive of chronic rotator cuff pathology. Advanced degenerative changes at the superior aspect of the glenohumeral joint. Report Dictated on Electronically Signed By: Reji Lemus MD Electronically Signed Date/Time: 06/16/2023 3:30 PM EDT [facility] Patient Name: EZRA GONZALEZ : 1935 Exam Date/Time: 06/16/2023 15:20 Procedure: XR SHOULDER 2+ VIEWS RIGHT Ordering Provider: CONDE NICHOLAS Reason For Exam: pain EXAMINATION: XR SHOULDER 2+ VIEWS RIGHT HISTORY: pain. TECHNIQUE: XR SHOULDER 2+ VIEWS RIGHT COMPARISON: None available RESULT: Osteopenia. Within this constraint, no cortical defect or lucency to suggest an acute fracture. High riding humeral head with abutment of the inferior aspect of the acromion with degenerative sclerosis of the humeral head and acromion. There is also degenerative narrowing and sclerosis of the superior aspect of the glenohumeral joint. Acromioclavicular joint appears grossly intact. [facility] Reji Lemus MD - 06/16/2023 Patient Name: EZRA GONZALEZ : 1935 Exam Date/Time: 06/16/2023 15:20 Procedure: XR SHOULDER 2+ VIEWS RIGHT Ordering Provider: CONDE NICHOLAS Reason For Exam: pain EXAMINATION: XR SHOULDER 2+ VIEWS RIGHT HISTORY: pain. TECHNIQUE: XR SHOULDER 2+ VIEWS RIGHT COMPARISON: None available RESULT: Osteopenia. Within this constraint, no cortical defect or lucency to suggest an acute fracture. High riding humeral head with abutment of the inferior aspect of the acromion with degenerative sclerosis of the humeral head and acromion. There is also degenerative narrowing and sclerosis of the superior aspect of the glenohumeral joint. Acromioclavicular joint appears grossly intact. IMPRESSION: No acute fracture within constraints of osteopenia. High riding humeral head with abutment and degenerative changes at the inferior aspect of the acromion, suggestive of chronic rotator cuff pathology. Advanced degenerative changes at the superior aspect of the glenohumeral joint. Report Dictated on Electronically Signed By: Reji Lemus MD Electronically Signed Date/Time: 06/16/2023 3:30 PM EDT [facility] Radiology Study observation (narrative) [facility] XR Shoulder - right 2 ViewsO rdered By: Reji Lemus on 06-16-2023 [facility] [place] Work Phone: Capillary blood internationa l normalized ratio (INR)Ordered By: Alexandra Hagen on 05-30-2023 INR Coag (BldC) [Relative time] 1.7 [facility] Comment on above: Critical Value > 4.0 Whole blood prothrombin time Ordered By: Alexandra Hagen on 05-30-2023 PT Coag (Bld) [Time] 18.0 s 11.7-14.9 [facility] Absolute lymphocyte countOrd ered By: Alexandra Hagen on 05-12-2023 Lymphocytes Auto (Unsp spec) [#/Vol] 1.60 10*3/uL 0.83-4.51 [facility] Automated lymphocyte count a s percentage of total leukocytesOrdered By: Alexandra Hagen on 05-12-2023 Lymphocytes/100 WBC Auto (Unsp spec) 20.2 % 19-41 [facility] Basophil percentageOrdered B y: Alexandra Hagen on 05-12-2023 Basophils/100 WBC (Bld) 0.5 % 0-1 [facility] Chloride [Moles/Vol] 109 mmol/L 98-107 [facility] Eosinophils/100 WBC (Bld) 3.7 % 0-5 [facility] Glucose [Mass/Vol] 206 mg/dL 74-106 [facility] Comment on above: Glucose result great er than or equal to 200 mg/dLsuggests DIABETES MELLITUS per A.D.A. criteria. Hemoglobin (Bld) [Mass/Vol] 13.1 g/dL 12.0-15.0 [facility] Monocytes/100 WBC (Bld) 7.8 % 0-10 [facility] Neutrophils (Bld) [#/Vol] 5.3 10*3/uL 2.0-7.7 [facility] Neutrophils/100 WBC (Bld) 67.5 % 47-70 [facility] Potassium [Moles/Vol] 4.6 mmol/L 3.5-5.1 [facility] Comment on above: Moderate Hemolysis, Result may be falsely increased. Sodium [Moles/Vol] 140 mmol/L 136-145 [facility] WBC (Bld) [#/Vol] 7.9 10*3/uL 4.4-11.0 [facility] Determination of erythrocyte mean corpuscular volume (MCV)Ordered By: Alexandra Hagen on 05-12-2023 MCV (RBC) [Entitic vol] 93.1 fL 81-99 [facility] Erythrocyte distribution wid th ratioOrdered By: Alexandra Hagen on 05-12-2023 Erythrocyte distribution width (RBC) [Ratio] 13.5 % 11.6-14.6 [facility] Erythrocyte distribution wid th standard deviationOrdered By: Alexandra Hagen on 05-12-2023 Erythrocyte distribution width (RBC) [Entitic vol] 46.0 fL 35.1-43.9 [facility] Hematocrit Auto (Bld) [Volum e fraction]Ordered By: Alexandra Hagen on 05-12-2023 Hematocrit (Bld) [Volume fraction] 41.8 % 37-47 [facility] Immature granulocytes/100 WB C Auto (Bld)Ordered By: Alexandra Hagen on 05-12-2023 Immature granulocytes/100 WBC (Bld) 0.300 % 0.0-0.9 [facility] Comment on above: IG% - Immature Granu locytes (promyelocytes, myelocytes and metamyelocytes) > 1% indicates that a LEFT SHIFT is Present. Laboratory - Chemistry and C hemistry - challengeOrdered By: Alexandra Hagen on 05-12-2023 CO2 [Moles/Vol] 25.0 mmol/L 21.0-32.0 [facility] Urea nitrogen/Creatinine [Mass ratio] 13.7 mg/mg 10-20 [facility] Laboratory - Hematology and Cell countsOrdered By: Alexandra Hagen on 05-12-2023 MCH (RBC) [Entitic mass] 29.2 pg 27.0-32.0 [facility] MCHC (RBC) [Mass/Vol] 31.3 g/dL 32-36 [facility] Nucleated RBC/100 WBC (Bld) [Ratio] 0 % 0-5 [facility] Platelet mean volume (Bld) [Entitic vol] 10.6 fL 6.2-12.0 [facility] Platelets (Bld) [#/Vol] 272 10*3/uL 150-450 [facility] No Panel InformationOrdered By: Alexandra Hagen on 05-12-2023 Estimated GFR (MDRD) Amer 53 mL/min >60 [facility] Comment on above: GFR Calc Estimated GFR (MDRD) Non-Af Amer 43 mL/min >60 [facility] Comment on above: Non- GFR Calc RBC Auto (Bld) [#/Vol]Ordere d By: Alexandra Hagen on 05-12-2023 RBC (Bld) [#/Vol] 4.49 10*6/uL 4.2-5.4 [facility] Serum or plasma calcium viktoria urement (mass/volume)Ordered By: Alexandra Hagen on 05-12-2023 Calcium [Mass/Vol] 8.5 mg/dL 8.5-10.1 [facility] Serum or plasma creatinine m easurement (mass/volume)Ordered By: Alexandra Hagen on 05-12-2023 Creatinine [Mass/Vol] 1.24 mg/dL 0.55-1.02 [facility] Comment on above: The validity of the calculated GFR & GFRAA in patients over 70 years has not been determined. Clinical correlation is essential. Serum or plasma urea nitroge n measurement (mass/volume)Ordered By: Alexandra Hagen on 05-12-2023 Urea nitrogen [Mass/Vol] 17 mg/dL 7-18 [facility] Thin prep Papanicolaou smear with manual screeningOrdered By: Alexandra Hagen on 05-12-2023 Thin prep Papanicolaou smear with manual screening 6 5-15 [facility] Whole blood hemoglobin A1c/t otal hemoglobin ratio (mass fraction)Ordered By: Alexandra Hagen on 05-12-2023 HbA1c (Bld) [Mass fraction] 6.8 % 3.8-5.6 [facility] Comment on above: Normal < 5.7 % Predi abetic 5.7 - 6.4 % Diabetic >or= 6.5 % Please note range changes. Capillary blood internationa l normalized ratio (INR)Ordered By: Alexandra Hagen on 05-01-2023 INR Coag (BldC) [Relative time] 2.0 [facility] Comment on above: Critical Value > 4.0 Whole blood prothrombin time Ordered By: Alexandra Hagen on 05-01-2023 PT Coag (Bld) [Time] 21.0 s 11.7-14.9 [facility] International normalized rat io (INR) calculationOrdered By: Alexandra Hagen on 04-17-2023 INR Coag (PPP) [Relative time] 1.8 {INR} [facility] Laboratory - CoagulationOrde red By: Alexandra Hagen on 04-17-2023 PT Coag (PPP) [Time] 21.0 s 11.7-14.9 [facility] Laboratory - CoagulationOrde red By: Alexandra Hagen on 03-20-2023 INR Coag (Bld) [Relative time] 2.4 {INR} [facility] Comment on above: Critical Value > 4.0 Whole blood prothrombin time Ordered By: Alexandra Hagen on 03-20-2023 PT Coag (Bld) [Time] 25.7 s 11.7-14.9 [facility] Basophil percentageOrdered B y: Alexandra Hagen on 02-21-2023 Bilirubin [Mass/Vol] 0.60 mg/dL 0.20-1.00 [facility] Comment on above: For patients on eltr ombopag therapy, use of Dimension [place] TBIL is not recommended. Chloride [Moles/Vol] 107 mmol/L 98-107 [facility] Cholesterol [Mass/Vol] 127 mg/dL <200 [facility] Comment on above: <200 mg/dL Desirable 200-240 mg/dL Borderline >240 mg/dL High Risk Glucose [Mass/Vol] 134 mg/dL 74-106 [facility] Comment on above: Fasting Glucose resu lt greater than or equal to 126 mg/dL suggests DIABETES MELLITUS per A.D.A. criteria. Potassium [Moles/Vol] 4.2 mmol/L 3.5-5.1 [facility] Protein [Mass/Vol] 6.2 g/dL 6.4-8.2 [facility] Sodium [Moles/Vol] 138 mmol/L 136-145 [facility] Triglyceride [Mass/Vol] 102 mg/dL <199 [facility] Comment on above: The drugs N-Acetylcy steine and Metamizole may falsely depress this assay.Serum Triglycerides Reference Interval Normal <150 mg/dL Borderline high 150 - 199 mg/dL High 200 - 499 mg/dL Very High > or = 500 mg/dL WBC (Bld) [#/Vol] 7.7 10*3/uL 4.4-11.0 [facility] Blood erythrocytes count (nu mber/volume)Ordered By: Alexandra Hagen on 02-21-2023 RBC (Bld) [#/Vol] 4.19 10*6/uL 4.2-5.4 [facility] Blood hemoglobin measurement (mass/volume)Ordered By: Alexandra Hagen on 02-21-2023 Hemoglobin (Bld) [Mass/Vol] 12.5 g/dL 12.0-15.0 [facility] Blood platelet mean volumeOr dered By: Alexandra Hagen on 02-21-2023 Platelet mean volume (Bld) [Entitic vol] 10.8 fL 6.2-12.0 [facility] Determination of erythrocyte mean corpuscular volume (MCV)Ordered By: Alexandra Hagen on 02-21-2023 MCV (RBC) [Entitic vol] 91.2 fL 81-99 [facility] Hematocrit Auto (Bld) [Volum e fraction]Ordered By: Alexandra Hagen on 02-21-2023 Hematocrit (Bld) [Volume fraction] 38.2 % 37-47 [facility] INR in Blood by Coagulation assayOrdered By: Alexandra Hagen on 02-21-2023 INR Coag (Bld) [Relative time] 2.3 {INR} [facility] Laboratory - Chemistry and C hemistry - challengeOrdered By: Alexandra Hagen on 02-21-2023 ALP [Catalytic activity/Vol] 84 U/L 45-117 [facility] ALT [Catalytic activity/Vol] 11 U/L 13-56 [facility] CO2 [Moles/Vol] 27.0 mmol/L 21.0-32.0 [facility] Globulin (S) [Mass/Vol] 3.3 g/dL 2.2-4.2 [facility] Urea nitrogen/Creatinine [Mass ratio] 14.0 mg/mg 10-20 [facility] Laboratory - CoagulationOrde red By: Alexandra Hagen on 02-21-2023 PT Coag (PPP) [Time] 25.3 s 11.7-14.9 [facility] Laboratory - Hematology and Cell countsOrdered By: Alexandra Hagen on 02-21-2023 Erythrocyte distribution width (RBC) [Entitic vol] 44.8 fL 35.1-43.9 [facility] Erythrocyte distribution width (RBC) [Ratio] 13.4 % 11.6-14.6 [facility] MCH (RBC) [Entitic mass] 29.8 pg 27.0-32.0 [facility] MCHC Auto (RBC) [Mass/Vol]Or dered By: Alexandra Hagen on 02-21-2023 MCHC (RBC) [Mass/Vol] 32.7 g/dL 32-36 [facility] No Panel InformationOrdered By: Alexandra Hagen on 02-21-2023 Estimated GFR (MDRD) Amer 68 mL/min >60 [facility] Comment on above: GFR Calc Estimated GFR (MDRD) Non-Af Amer 56 mL/min >60 [facility] Comment on above: Non- GFR Calc Platelets bldOrdered By: Alexandra Hagen on 02-21-2023 Platelets (Bld) [#/Vol] 297 10*3/uL 150-450 [facility] Serum or plasma albumin viktoria urement (mass/volume)Ordered By: Alexandra Hagen on 02-21-2023 Albumin [Mass/Vol] 2.9 g/dL 3.2-5.0 [facility] Serum or plasma albumin/glob ulin mass ratioOrdered By: Alexandra Hagen on 02-21-2023 Albumin/Globulin [Mass ratio] 0.9 {ratio} 0.9-2.4 [facility] Serum or plasma calcium viktoria urement (mass/volume)Ordered By: Alexandra Hagen on 02-21-2023 Calcium [Mass/Vol] 8.4 mg/dL 8.5-10.1 [facility] Serum or plasma cholesterol in HDL measurement (mass/volume)Ordered By: Alexandra Hagen on 02-21-2023 Cholesterol in HDL [Mass/Vol] 50 mg/dL >40 [facility] Comment on above: The drugs N-Acetylcy steine and Metamizole may falsely depress this assay. Reference Range HDL <40 mg/dL Low HDL Cholesterol HDL >or= 60 mg/dL High HDL Cholesterol Serum or plasma cholesterol in VLDL measurement (mass/volume)Ordered By: Alexandra Hagen on 02-21-2023 Cholesterol in VLDL [Mass/Vol] 20 mg/dL 5-40 [facility] Serum or plasma creatinine m easurement (mass/volume)Ordered By: Alexandra Hagen on 02-21-2023 Creatinine [Mass/Vol] 1.00 mg/dL 0.55-1.02 [facility] Comment on above: The validity of the calculated GFR & GFRAA in patients over 70 years has not been determined. Clinical correlation is essential. Serum or plasma low density lipoprotein (LDL) cholesterol measurement (mass/volume)Ordered By: Alexandra Hagen on 02-21-2023 Cholesterol in LDL [Mass/Vol] 57 mg/dL 0-130 [facility] Serum or plasma urea nitroge n measurement (mass/volume)Ordered By: Alexandra Hagen on 02-21-2023 Urea nitrogen [Mass/Vol] 14 mg/dL 7-18 [facility] Thin prep Papanicolaou smear with manual screeningOrdered By: Alexandra Hagen on 02-21-2023 Thin prep Papanicolaou smear with manual screening 16 U/L 15-37 [facility] Thin prep Papanicolaou smear with manual screening 4 5-15 [facility] Albumin Elph [Mass/Vol]Order ed By: Anant Juarez on 01-20-2023 Albumin [Mass/Vol] 3.4 g/dL 2.9-4.4 [facility] Basophil percentageOrdered B y: Anant Juarez on 01-20-2023 Basophil percentage Comment . [facility] Comment on above: No monoclonality det ected.Performed at: [place] [facility] [id number] [place], [place] [id number] Director: Master Vee PhD, Phone: [phone] Interpretation of serum or p lasma protein pattern by immunofixation (narrative resultOrdered By: Anant Juarez on 01-20-2023 Protein Fractions Immunofixation Manuel [Interp] See comment [facility] Comment on above: Result: Not Observed No Panel InformationOrdered By: Anant Juarez on 01-20-2023 Addendum Document Comment . [facility] Comment on above: Protein electrophore sis scan will follow via computer,mail, or doctor of naprapathic medicine delivery. Serum [id number] measu rement by electrophoresisOrdered By: Anant Juarez on 01-20-2023 Alpha 1 globulin Elph [Mass/Vol] 0.3 g/dL 0.0-0.4 [facility] Alpha 1 globulin Elph [Mass/Vol] 0.9 g/dL 0.4-1.0 [facility] Serum globulin measurement ( mass/volume)Ordered By: Anant Juarez on 01-20-2023 Globulin (S) [Mass/Vol] 3.0 g/dL 2.2-3.9 [facility] Serum or plasma IgA measurem ent (mass/volume)Ordered By: Anant Juarez on 01-20-2023 IgA [Mass/Vol] 158 mg/dL 64-422 [facility] Serum or plasma IgG measurem ent (mass/volume)Ordered By: Anant Juarez on 01-20-2023 IgG [Mass/Vol] 847 mg/dL 586-1602 [facility] Serum or plasma IgM measurem ent (mass/volume)Ordered By: Anant Juarez on 01-20-2023 IgM [Mass/Vol] 48 mg/dL 26-217 [facility] Serum or plasma beta globuli n measurement by electrophoresis (mass/volume)Ordered By: Anant Juarez on 01-20-2023 Beta globulin Elph [Mass/Vol] 1.0 g/dL 0.7-1.3 [facility] Serum or plasma gamma globul in measurement by electrophoresis (mass/volume)Ordered By: Anant Juarez on 01-20-2023 Gamma globulin Elph [Mass/Vol] 0.7 g/dL 0.4-1.8 [facility] Serum or plasma immunoelectr ophoresis interpretation (nominal result)Ordered By: Anant Juarez on 01-20-2023 Interpretation IEP [Interp] Comment . [facility] Comment on above: No monoclonality det ected. Thin prep Papanicolaou smear with manual screeningOrdered By: Anant Juarez on 01-20-2023 Thin prep Papanicolaou smear with manual screening 1.2 0.7-1.7 [facility] Total protein bloodOrdered B y: Anant Juarez on 01-20-2023 Protein [Mass/Vol] 6.4 g/dL 6.0-8.5 [facility] Laboratory - CoagulationOrde red By: Alexandra Hagen on 01-16-2023 INR Coag (Bld) [Relative time] 2.2 {INR} [facility] Comment on above: Critical Value > 4.0 Whole blood prothrombin time Ordered By: Alexandra Hagen on 01-16-2023 PT Coag (Bld) [Time] 24.2 s 11.7-14.9 [facility] Absolute lymphocyte countOrd ered By: Lynn Horn on 12-28-2022 Lymphocytes Auto (Unsp spec) [#/Vol] 1.57 10*3/uL 0.83-4.51 [facility] Basophil percentageOrdered B y: Lynn Horn on 12-28-2022 Basophils/100 WBC (Bld) 0.6 % 0-1 [facility] Chloride [Moles/Vol] 108 mmol/L 98-107 [facility] Eosinophils/100 WBC (Bld) 3.0 % 0-5 [facility] Glucose [Mass/Vol] 117 mg/dL 74-106 [facility] Comment on above: Fasting Glucose resu lt from 100 to 125 mg/dL suggests IMPAIRED HOMEOSTASIS per A.D.A. criteria. Neutrophils (Bld) [#/Vol] 5.3 10*3/uL 2.0-7.7 [facility] Neutrophils/100 WBC (Bld) 66.8 % 47-70 [facility] Potassium [Moles/Vol] 3.9 mmol/L 3.5-5.1 [facility] Sodium [Moles/Vol] 138 mmol/L 136-145 [facility] WBC (Bld) [#/Vol] 7.9 10*3/uL 4.4-11.0 [facility] Blood erythrocytes count (nu mber/volume)Ordered By: Lynn Horn on 12-28-2022 RBC (Bld) [#/Vol] 4.32 10*6/uL 4.2-5.4 [facility] Blood hemoglobin measurement (mass/volume)Ordered By: Lynn Horn on 12-28-2022 Hemoglobin (Bld) [Mass/Vol] 12.8 g/dL 12.0-15.0 [facility] Blood lymphocytes/100 leukoc ytesOrdered By: Lynn Horn on 12-28-2022 Lymphocytes/100 WBC (Bld) 19.8 % 19-41 [facility] Blood monocytes/100 leukocyt esOrdered By: Lynn Horn on 12-28-2022 Monocytes/100 WBC (Bld) 9.5 % 0-10 [facility] Blood platelet mean volumeOr dered By: Lynn Horn on 12-28-2022 Platelet mean volume (Bld) [Entitic vol] 10.6 fL 6.2-12.0 [facility] Determination of erythrocyte mean corpuscular volume (MCV)Ordered By: Lynn Horn on 12-28-2022 MCV (RBC) [Entitic vol] 91.0 fL 81-99 [facility] Hematocrit Auto (Bld) [Volum e fraction]Ordered By: Lynn Horn on 12-28-2022 Hematocrit (Bld) [Volume fraction] 39.3 % 37-47 [facility] INR in Blood by Coagulation assayOrdered By: Lynn Horn on 12-28-2022 INR Coag (Bld) [Relative time] 2.1 {INR} [facility] Laboratory - Chemistry and C hemistry - challengeOrdered By: Lynn Horn on 12-28-2022 CO2 [Moles/Vol] 27.0 mmol/L 21.0-32.0 [facility] Urea nitrogen/Creatinine [Mass ratio] 15.7 mg/mg 10-20 [facility] Laboratory - CoagulationOrde red By: Lynn Horn on 12-28-2022 PT Coag (PPP) [Time] 23.8 s 11.7-14.9 [facility] Laboratory - Hematology and Cell countsOrdered By: Lynn Horn on 12-28-2022 Erythrocyte distribution width (RBC) [Entitic vol] 43.0 fL 35.1-43.9 [facility] Erythrocyte distribution width (RBC) [Ratio] 12.9 % 11.6-14.6 [facility] Immature granulocytes/100 WBC (Bld) 0.300 % 0.0-0.9 [facility] Comment on above: IG% - Immature Granu locytes (promyelocytes, myelocytes and metamyelocytes) > 1% indicates that a LEFT SHIFT is Present. MCH (RBC) [Entitic mass] 29.6 pg 27.0-32.0 [facility] Nucleated RBC/100 WBC (Bld) [Ratio] 0 % 0-5 [facility] MCHC Auto (RBC) [Mass/Vol]Or dered By: Lynn Horn on 12-28-2022 MCHC (RBC) [Mass/Vol] 32.6 g/dL 32-36 [facility] No Panel InformationOrdered By: Lynn Horn on 12-28-2022 Estimated Creatinine Clearance Calc 36.84 ml/min [facility] Estimated GFR (MDRD) Amer 77 mL/min >60 [facility] Comment on above: GFR Calc Estimated GFR (MDRD) Non-Af Amer 64 mL/min >60 [facility] Comment on above: Non- GFR Calc Platelets bldOrdered By: Lois Horn on 12-28-2022 Platelets (Bld) [#/Vol] 272 10*3/uL 150-450 [facility] Serum or plasma calcium viktoria urement (mass/volume)Ordered By: Lynn Horn on 12-28-2022 Calcium [Mass/Vol] 8.3 mg/dL 8.5-10.1 [facility] Serum or plasma creatinine m easurement (mass/volume)Ordered By: Lynn Horn on 12-28-2022 Creatinine [Mass/Vol] 0.89 mg/dL 0.55-1.02 [facility] Comment on above: The validity of the calculated GFR & GFRAA in patients over 70 years has not been determined. Clinical correlation is essential. Serum or plasma urea nitroge n measurement (mass/volume)Ordered By: Lynn Horn on 12-28-2022 Urea nitrogen [Mass/Vol] 14 mg/dL 7-18 [facility] Thin prep Papanicolaou smear with manual screeningOrdered By: Lynn Horn on 12-28-2022 Thin prep Papanicolaou smear with manual screening 3 5-15 [facility] Laboratory - CoagulationOrde red By: Lali Pimentel on 12-27-2022 aPTT Coag (Bld) [Time] 48.2 s 24.1-36.2 [facility] No Panel InformationOrdered By: Lali Pimentel on 12-27-2022 Troponin I High Sensitivity 10 pg/mL 3.0-54.0 [facility] Comment on above: Please Note: New Evon t Units and Gender Specific Reference Ranges. For more information see Policy Stat Procedure [place] High Sensitivity Troponin (TNIH) and attachments. Laboratory - CoagulationOrde red By: Alexandra Hagen on 12-19-2022 INR Coag (Bld) [Relative time] 2.8 {INR} [facility] Comment on above: Critical Value > 4.0 Whole blood prothrombin time Ordered By: Alexandra Hagen on 12-19-2022 PT Coag (Bld) [Time] 29.7 s 11.7-14.9 [facility] Absolute lymphocyte countOrd ered By: Alexandra Hagen on 12-09-2022 Lymphocytes Auto (Unsp spec) [#/Vol] 1.65 10*3/uL 0.83-4.51 [facility] Basophil percentageOrdered B y: Alexandra Hagen on 12-09-2022 Basophils/100 WBC (Bld) 0.4 % 0-1 [facility] Chloride [Moles/Vol] 107 mmol/L 98-107 [facility] Eosinophils/100 WBC (Bld) 3.6 % 0-5 [facility] Glucose [Mass/Vol] 125 mg/dL 74-106 [facility] Comment on above: Fasting Glucose resu lt from 100 to 125 mg/dL suggests IMPAIRED HOMEOSTASIS per A.D.A. criteria. Neutrophils (Bld) [#/Vol] 4.3 10*3/uL 2.0-7.7 [facility] Neutrophils/100 WBC (Bld) 61.6 % 47-70 [facility] Potassium [Moles/Vol] 4.8 mmol/L 3.5-5.1 [facility] Sodium [Moles/Vol] 138 mmol/L 136-145 [facility] WBC (Bld) [#/Vol] 7.0 10*3/uL 4.4-11.0 [facility] Blood erythrocytes count (nu mber/volume)Ordered By: Alexandra Hagen on 12-09-2022 RBC (Bld) [#/Vol] 4.30 10*6/uL 4.2-5.4 [facility] Blood hemoglobin measurement (mass/volume)Ordered By: Alexandra Hagen on 12-09-2022 Hemoglobin (Bld) [Mass/Vol] 13.1 g/dL 12.0-15.0 [facility] Blood lymphocytes/100 leukoc ytesOrdered By: Alexandra Hagen on 12-09-2022 Lymphocytes/100 WBC (Bld) 23.7 % 19-41 [facility] Blood monocytes/100 leukocyt esOrdered By: Alexandra Hagen on 12-09-2022 Monocytes/100 WBC (Bld) 10.4 % 0-10 [facility] Blood platelet mean volumeOr dered By: Alexandra Hagen on 12-09-2022 Platelet mean volume (Bld) [Entitic vol] 10.7 fL 6.2-12.0 [facility] Determination of erythrocyte mean corpuscular volume (MCV)Ordered By: Alexandra Hagen on 12-09-2022 MCV (RBC) [Entitic vol] 92.3 fL 81-99 [facility] Hematocrit Auto (Bld) [Volum e fraction]Ordered By: Alexandra Hagen on 12-09-2022 Hematocrit (Bld) [Volume fraction] 39.7 % 37-47 [facility] Laboratory - Chemistry and C hemistry - challengeOrdered By: Alexandra Hagen on 12-09-2022 CO2 [Moles/Vol] 26.0 mmol/L 21.0-32.0 [facility] Urea nitrogen/Creatinine [Mass ratio] 14.4 mg/mg 10-20 [facility] Laboratory - Hematology and Cell countsOrdered By: Alexandra Hagen on 12-09-2022 Erythrocyte distribution width (RBC) [Entitic vol] 44.0 fL 35.1-43.9 [facility] Erythrocyte distribution width (RBC) [Ratio] 13.1 % 11.6-14.6 [facility] Immature granulocytes/100 WBC (Bld) 0.300 % 0.0-0.9 [facility] Comment on above: IG% - Immature Granu locytes (promyelocytes, myelocytes and metamyelocytes) > 1% indicates that a LEFT SHIFT is Present. MCH (RBC) [Entitic mass] 30.5 pg 27.0-32.0 [facility] Nucleated RBC/100 WBC (Bld) [Ratio] 0 % 0-5 [facility] MCHC Auto (RBC) [Mass/Vol]Or dered By: Alexandra Hagen on 12-09-2022 MCHC (RBC) [Mass/Vol] 33.0 g/dL 32-36 [facility] No Panel InformationOrdered By: Alexandra Hagen on 12-09-2022 Estimated GFR (MDRD) Amer 60 mL/min >60 [facility] Comment on above: GFR Calc Estimated GFR (MDRD) Non-Af Amer 49 mL/min >60 [facility] Comment on above: Non- GFR Calc Platelets bldOrdered By: Alexandra Hagen on 12-09-2022 Platelets (Bld) [#/Vol] 293 10*3/uL 150-450 [facility] Serum or plasma calcium viktoria urement (mass/volume)Ordered By: Alexandra Hagen on 12-09-2022 Calcium [Mass/Vol] 8.7 mg/dL 8.5-10.1 [facility] Serum or plasma creatinine m easurement (mass/volume)Ordered By: Alexandra Hagen on 12-09-2022 Creatinine [Mass/Vol] 1.11 mg/dL 0.55-1.02 [facility] Comment on above: The validity of the calculated GFR & GFRAA in patients over 70 years has not been determined. Clinical correlation is essential. Serum or plasma urea nitroge n measurement (mass/volume)Ordered By: Alexandra Hagen on 12-09-2022 Urea nitrogen [Mass/Vol] 16 mg/dL 7-18 [facility] Thin prep Papanicolaou smear with manual screeningOrdered By: Alexandra Hagen on 12-09-2022 Thin prep Papanicolaou smear with manual screening 5 5-15 [facility] Whole blood hemoglobin A1c/t otal hemoglobin ratio (mass fraction)Ordered By: Alexandra Hagen on 12-09-2022 HbA1c (Bld) [Mass fraction] 6.7 % 3.8-5.6 [facility] Comment on above: Normal < 5.7 % Predi abetic 5.7 - 6.4 % Diabetic >or= 6.5 % Please note range changes. Basophil percentageOrdered B y: Alexandra Hagen on 11-20-2022 Bilirubin [Mass/Vol] 0.50 mg/dL 0.20-1.00 [facility] Comment on above: For patients on eltr ombopag therapy, use of Dimension [place] TBIL is not recommended. Chloride [Moles/Vol] 105 mmol/L 98-107 [facility] Cholesterol [Mass/Vol] 167 mg/dL <200 [facility] Comment on above: <200 mg/dL Desirable 200-240 mg/dL Borderline >240 mg/dL High Risk Glucose [Mass/Vol] 153 mg/dL 74-106 [facility] Comment on above: Fasting Glucose resu lt greater than or equal to 126 mg/dL suggests DIABETES MELLITUS per A.D.A. criteria. Potassium [Moles/Vol] 4.2 mmol/L 3.5-5.1 [facility] Protein [Mass/Vol] 6.7 g/dL 6.4-8.2 [facility] Sodium [Moles/Vol] 138 mmol/L 136-145 [facility] Triglyceride [Mass/Vol] 120 mg/dL <199 [facility] Comment on above: The drugs N-Acetylcy steine and Metamizole may falsely depress this assay.Serum Triglycerides Reference Interval Normal <150 mg/dL Borderline high 150 - 199 mg/dL High 200 - 499 mg/dL Very High > or = 500 mg/dL WBC (Bld) [#/Vol] 7.4 10*3/uL 4.4-11.0 [facility] Blood erythrocytes count (nu mber/volume)Ordered By: Alexandra Hagen on 11-20-2022 RBC (Bld) [#/Vol] 4.37 10*6/uL 4.2-5.4 [facility] Blood hemoglobin measurement (mass/volume)Ordered By: Alexandra Hagen on 11-20-2022 Hemoglobin (Bld) [Mass/Vol] 13.1 g/dL 12.0-15.0 [facility] Blood platelet mean volumeOr dered By: Alexandra Hagen on 11-20-2022 Platelet mean volume (Bld) [Entitic vol] 10.8 fL 6.2-12.0 [facility] Determination of erythrocyte mean corpuscular volume (MCV)Ordered By: Alexandra Hagen on 11-20-2022 MCV (RBC) [Entitic vol] 91.5 fL 81-99 [facility] Hematocrit Auto (Bld) [Volum e fraction]Ordered By: Alexandra Hagen on 11-20-2022 Hematocrit (Bld) [Volume fraction] 40.0 % 37-47 [facility] INR in Blood by Coagulation assayOrdered By: Alexandra Hagen on 11-20-2022 INR Coag (Bld) [Relative time] 2.0 {INR} [facility] Laboratory - Chemistry and C hemistry - challengeOrdered By: Alexandra Hagen on 11-20-2022 ALP [Catalytic activity/Vol] 72 U/L 45-117 [facility] ALT [Catalytic activity/Vol] 13 U/L 13-56 [facility] CO2 [Moles/Vol] 30.0 mmol/L 21.0-32.0 [facility] Globulin (S) [Mass/Vol] 3.6 g/dL 2.2-4.2 [facility] Urea nitrogen/Creatinine [Mass ratio] 12.8 mg/mg 10-20 [facility] Laboratory - CoagulationOrde red By: Alexandra Hagen on 11-20-2022 PT Coag (PPP) [Time] 22.6 s 11.7-14.9 [facility] Laboratory - Hematology and Cell countsOrdered By: Alexandra Hagen on 11-20-2022 Erythrocyte distribution width (RBC) [Entitic vol] 43.4 fL 35.1-43.9 [facility] Erythrocyte distribution width (RBC) [Ratio] 12.9 % 11.6-14.6 [facility] MCH (RBC) [Entitic mass] 30.0 pg 27.0-32.0 [facility] MCHC Auto (RBC) [Mass/Vol]Or dered By: Alexandra Hagen on 11-20-2022 MCHC (RBC) [Mass/Vol] 32.8 g/dL 32-36 [facility] No Panel InformationOrdered By: Alexandra Hagen on 11-20-2022 Estimated GFR (MDRD) Amer 61 mL/min >60 [facility] Comment on above: GFR Calc Estimated GFR (MDRD) Non-Af Amer 50 mL/min >60 [facility] Comment on above: Non- GFR Calc Platelets bldOrdered By: Alexandra Hagen on 11-20-2022 Platelets (Bld) [#/Vol] 310 10*3/uL 150-450 [facility] Serum or plasma albumin viktoria urement (mass/volume)Ordered By: Alexandra Hagen on 11-20-2022 Albumin [Mass/Vol] 3.1 g/dL 3.2-5.0 [facility] Serum or plasma albumin/glob ulin mass ratioOrdered By: Alexandra Hagen on 11-20-2022 Albumin/Globulin [Mass ratio] 0.9 {ratio} 0.9-2.4 [facility] Serum or plasma calcium viktoria urement (mass/volume)Ordered By: Alexandra Hagen on 11-20-2022 Calcium [Mass/Vol] 8.6 mg/dL 8.5-10.1 [facility] Serum or plasma cholesterol in HDL measurement (mass/volume)Ordered By: Alexandra Hagen on 11-20-2022 Cholesterol in HDL [Mass/Vol] 55 mg/dL >40 [facility] Comment on above: The drugs N-Acetylcy steine and Metamizole may falsely depress this assay. Reference Range HDL <40 mg/dL Low HDL Cholesterol HDL >or= 60 mg/dL High HDL Cholesterol Serum or plasma cholesterol in VLDL measurement (mass/volume)Ordered By: Alexandra Hagen on 11-20-2022 Cholesterol in VLDL [Mass/Vol] 24 mg/dL 5-40 [facility] Serum or plasma creatinine m easurement (mass/volume)Ordered By: Alexandra Hagen on 11-20-2022 Creatinine [Mass/Vol] 1.09 mg/dL 0.55-1.02 [facility] Comment on above: The validity of the calculated GFR & GFRAA in patients over 70 years has not been determined. Clinical correlation is essential. Serum or plasma low density lipoprotein (LDL) cholesterol measurement (mass/volume)Ordered By: Alexandra Hagen on 11-20-2022 Cholesterol in LDL [Mass/Vol] 88 mg/dL 0-130 [facility] Serum or plasma urea nitroge n measurement (mass/volume)Ordered By: Alexandra Hagen on 11-20-2022 Urea nitrogen [Mass/Vol] 14 mg/dL 7-18 [facility] Thin prep Papanicolaou smear with manual screeningOrdered By: Alexandra Hagen on 11-20-2022 Thin prep Papanicolaou smear with manual screening 15 U/L 15-37 [facility] Thin prep Papanicolaou smear with manual screening 3 5-15 [facility] Absolute lymphocyte countOrd ered By: Mo Corea on 11-18-2022 Lymphocytes Auto (Unsp spec) [#/Vol] 1.95 10*3/uL 0.83-4.51 [facility] Basophil percentageOrdered B y: Mo Corea on 11-18-2022 Basophil percentage 0-5 SEEN /hpf 0-5 [facility] Basophils/100 WBC (Bld) 0.4 % 0-1 [facility] Bilirubin [Mass/Vol] 0.40 mg/dL 0.20-1.00 [facility] Comment on above: For patients on eltr ombopag therapy, use of Dimension [place] TBIL is not recommended. Chloride [Moles/Vol] 108 mmol/L 98-107 [facility] Eosinophils/100 WBC (Bld) 3.4 % 0-5 [facility] Glucose [Mass/Vol] 126 mg/dL 74-106 [facility] Comment on above: Fasting Glucose resu lt greater than or equal to 126 mg/dL suggests DIABETES MELLITUS per A.D.A. criteria. Neutrophils (Bld) [#/Vol] 4.4 10*3/uL 2.0-7.7 [facility] Neutrophils/100 WBC (Bld) 59.9 % 47-70 [facility] Potassium [Moles/Vol] 3.9 mmol/L 3.5-5.1 [facility] Protein [Mass/Vol] 6.9 g/dL 6.4-8.2 [facility] Sodium [Moles/Vol] 140 mmol/L 136-145 [facility] WBC (Bld) [#/Vol] 7.3 10*3/uL 4.4-11.0 [facility] Bilirubin Test strip Ql (U)O rdered By: Mo Corea on 11-18-2022 Bilirubin Ql (U) Negative Negative [facility] Blood erythrocytes count (nu mber/volume)Ordered By: Mo Corea on 11-18-2022 RBC (Bld) [#/Vol] 4.63 10*6/uL 4.2-5.4 [facility] Blood hemoglobin measurement (mass/volume)Ordered By: Mo Corea on 11-18-2022 Hemoglobin (Bld) [Mass/Vol] 13.9 g/dL 12.0-15.0 [facility] Blood lymphocytes/100 leukoc ytesOrdered By: Mo Corea on 11-18-2022 Lymphocytes/100 WBC (Bld) 26.8 % 19-41 [facility] Blood monocytes/100 leukocyt esOrdered By: Mo Corea on 11-18-2022 Monocytes/100 WBC (Bld) 9.2 % 0-10 [facility] Blood platelet mean volumeOr dered By: Mo Corea on 11-18-2022 Platelet mean volume (Bld) [Entitic vol] 10.5 fL 6.2-12.0 [facility] Determination of erythrocyte mean corpuscular volume (MCV)Ordered By: Mo Corea on 11-18-2022 MCV (RBC) [Entitic vol] 92.4 fL 81-99 [facility] Hematocrit Auto (Bld) [Volum e fraction]Ordered By: Mo Corea on 11-18-2022 Hematocrit (Bld) [Volume fraction] 42.8 % 37-47 [facility] INR in Blood by Coagulation assayOrdered By: Mo Corea on 11-18-2022 INR Coag (Bld) [Relative time] 2.0 {INR} [facility] Ketones Test strip Ql (U)Ord ered By: Mo Corea on 11-18-2022 Ketones Ql (U) Negative Negative [facility] Laboratory - Chemistry and C hemistry - challengeOrdered By: Mo Corea on 11-18-2022 ALP [Catalytic activity/Vol] 76 U/L 45-117 [facility] ALT [Catalytic activity/Vol] 13 U/L 13-56 [facility] CO2 [Moles/Vol] 30.0 mmol/L 21.0-32.0 [facility] Globulin (S) [Mass/Vol] 3.6 g/dL 2.2-4.2 [facility] Urea nitrogen/Creatinine [Mass ratio] 13.6 mg/mg 10-20 [facility] Laboratory - CoagulationOrde red By: Mo Corea on 11-18-2022 aPTT Coag (Bld) [Time] 48.1 s 24.1-36.2 [facility] PT Coag (PPP) [Time] 22.7 s 11.7-14.9 [facility] Laboratory - Hematology and Cell countsOrdered By: Mo Corea on 11-18-2022 Erythrocyte distribution width (RBC) [Entitic vol] 44.2 fL 35.1-43.9 [facility] Erythrocyte distribution width (RBC) [Ratio] 13.1 % 11.6-14.6 [facility] Immature granulocytes/100 WBC (Bld) 0.300 % 0.0-0.9 [facility] Comment on above: IG% - Immature Granu locytes (promyelocytes, myelocytes and metamyelocytes) > 1% indicates that a LEFT SHIFT is Present. MCH (RBC) [Entitic mass] 30.0 pg 27.0-32.0 [facility] Nucleated RBC/100 WBC (Bld) [Ratio] 0 % 0-5 [facility] MCHC Auto (RBC) [Mass/Vol]Or dered By: Mo Corea on 11-18-2022 MCHC (RBC) [Mass/Vol] 32.5 g/dL 32-36 [facility] Mucus LM Ql (Urine sed)Order ed By: Mo Corea on 11-18-2022 Mucus Ql (Urine sed) 0 SEEN /hpf [facility] Nitrite Test strip Ql (U)Ord ered By: Mo Corea on 11-18-2022 Nitrite Ql (U) Negative Negative [facility] No Panel InformationOrdered By: Mo Corea on 11-18-2022 Estimated Creatinine Clearance Calc 31.83 ml/min [facility] Estimated GFR (MDRD) Amer 65 mL/min >60 [facility] Comment on above: GFR Calc Estimated GFR (MDRD) Non-Af Amer 54 mL/min >60 [facility] Comment on above: Non- GFR Calc Platelets bldOrdered By: Rebecca Corea on 11-18-2022 Platelets (Bld) [#/Vol] 289 10*3/uL 150-450 [facility] Protein Test strip Ql (U)Ord ered By: Mo Corea on 11-18-2022 Protein Ql (U) 15 mg/dl Negative [facility] Serum or plasma albumin viktoria urement (mass/volume)Ordered By: Mo Corea on 11-18-2022 Albumin [Mass/Vol] 3.3 g/dL 3.2-5.0 [facility] Serum or plasma albumin/glob ulin mass ratioOrdered By: Mo Corea on 11-18-2022 Albumin/Globulin [Mass ratio] 0.9 {ratio} 0.9-2.4 [facility] Serum or plasma calcium viktoria urement (mass/volume)Ordered By: oM Corea on 11-18-2022 Calcium [Mass/Vol] 8.7 mg/dL 8.5-10.1 [facility] Serum or plasma creatinine m easurement (mass/volume)Ordered By: Mo Corea on 11-18-2022 Creatinine [Mass/Vol] 1.03 mg/dL 0.55-1.02 [facility] Comment on above: The validity of the calculated GFR & GFRAA in patients over 70 years has not been determined. Clinical correlation is essential. Serum or plasma urea nitroge n measurement (mass/volume)Ordered By: Mo Corea on 11-18-2022 Urea nitrogen [Mass/Vol] 14 mg/dL 7-18 [facility] Squamous epithelial cells de tection in urine sediment by light microscopyOrdered By: Mo Corea on 11-18-2022 Epithelial cells.squamous LM Ql (Urine sed) 0-5 SEEN /hpf 5-10 [facility] Thin prep Papanicolaou smear with manual screeningOrdered By: Mo Corea on 11-18-2022 Thin prep Papanicolaou smear with manual screening 15 U/L 15-37 [facility] Thin prep Papanicolaou smear with manual screening 2 5-15 [facility] Urine blood detectionOrdered By: Mo Corea on 11-18-2022 RBC Ql (U) Negative Negative [facility] RBC Ql (U) 0 SEEN /hpf 0-5 [facility] Urine clarityOrdered By: Rebecca Corea on 11-18-2022 Clarity (U) Sl. Cloudy Clear [facility] Urine color determinationOrd ered By: Mo Corea on 11-18-2022 Color (U) Yellow Yellow [facility] Urine glucose detectionOrder ed By: Mo Corea on 11-18-2022 Glucose Ql (U) Normal mg/dl Normal [facility] Urine leukocyte esterase det ection by dipstickOrdered By: Mo Corea on 11-18-2022 Leukocyte esterase Test strip Ql (U) 25 /ul Negative [facility] Urine pHOrdered By: Mo amado on 11-18-2022 pH (U) 7.0 [pH] 5.0 - 8.0 [facility] Urine sediment bacteria coun t by microscopy (number/high power field)Ordered By: Mo Corea on 11-18-2022 Bacteria LM.HPF (Urine sed) [#/Area] 0 /[HPF] None Seen [facility] Urine specific gravity measu rementOrdered By: Mo Corea on 11-18-2022 Specific gravity (U) [Rel density] 1.010 1.002-1.030 [facility] Urobilinogen Auto test strip Ql (U)Ordered By: Mo Corea on 11-18-2022 Urobilinogen Ql (U) Normal mg/dl Normal [facility] Absolute lymphocyte countOrd ered By: Sae Carballo on 11-15-2022 Lymphocytes Auto (Unsp spec) [#/Vol] 2.03 10*3/uL 0.83-4.51 [facility] Basophil percentageOrdered B y: Sae Carballo on 11-15-2022 Basophils/100 WBC (Bld) 0.5 % 0-1 [facility] Chloride [Moles/Vol] 107 mmol/L 98-107 [facility] Cholesterol [Mass/Vol] 164 mg/dL <200 [facility] Comment on above: <200 mg/dL Desirable 200-240 mg/dL Borderline >240 mg/dL High Risk Eosinophils/100 WBC (Bld) 3.5 % 0-5 [facility] Glucose [Mass/Vol] 124 mg/dL 74-106 [facility] Comment on above: Fasting Glucose resu lt from 100 to 125 mg/dL suggests IMPAIRED HOMEOSTASIS per A.D.A. criteria. Neutrophils (Bld) [#/Vol] 4.7 10*3/uL 2.0-7.7 [facility] Neutrophils/100 WBC (Bld) 60.3 % 47-70 [facility] Potassium [Moles/Vol] 4.1 mmol/L 3.5-5.1 [facility] Sodium [Moles/Vol] 139 mmol/L 136-145 [facility] Triglyceride [Mass/Vol] 133 mg/dL <199 [facility] Comment on above: The drugs N-Acetylcy steine and Metamizole may falsely depress this assay.Serum Triglycerides Reference Interval Normal <150 mg/dL Borderline high 150 - 199 mg/dL High 200 - 499 mg/dL Very High > or = 500 mg/dL WBC (Bld) [#/Vol] 7.8 10*3/uL 4.4-11.0 [facility] Blood erythrocytes count (nu mber/volume)Ordered By: Sae Carballo on 11-15-2022 RBC (Bld) [#/Vol] 4.32 10*6/uL 4.2-5.4 [facility] Blood hemoglobin measurement (mass/volume)Ordered By: Sae Carballo on 11-15-2022 Hemoglobin (Bld) [Mass/Vol] 12.9 g/dL 12.0-15.0 [facility] Blood lymphocytes/100 leukoc ytesOrdered By: Sae Carballo on 11-15-2022 Lymphocytes/100 WBC (Bld) 26.2 % 19-41 [facility] Blood monocytes/100 leukocyt esOrdered By: Sae Carballo on 11-15-2022 Monocytes/100 WBC (Bld) 9.4 % 0-10 [facility] Blood platelet mean volumeOr dered By: Sae Carballo on 11-15-2022 Platelet mean volume (Bld) [Entitic vol] 10.6 fL 6.2-12.0 [facility] Determination of erythrocyte mean corpuscular volume (MCV)Ordered By: Sae Carballo on 11-15-2022 MCV (RBC) [Entitic vol] 91.7 fL 81-99 [facility] Hematocrit Auto (Bld) [Volum e fraction]Ordered By: Sae Carballo on 11-15-2022 Hematocrit (Bld) [Volume fraction] 39.6 % 37-47 [facility] INR in Blood by Coagulation assayOrdered By: Sae Carballo on 11-15-2022 INR Coag (Bld) [Relative time] 2.0 {INR} [facility] Laboratory - Chemistry and C hemistry - challengeOrdered By: Sae Carballo on 11-15-2022 CO2 [Moles/Vol] 25.0 mmol/L 21.0-32.0 [facility] Urea nitrogen/Creatinine [Mass ratio] 15.8 mg/mg 10-20 [facility] Laboratory - CoagulationOrde red By: Sae Carballo on 11-15-2022 PT Coag (PPP) [Time] 23.0 s 11.7-14.9 [facility] Laboratory - Hematology and Cell countsOrdered By: Sae Carballo on 11-15-2022 Erythrocyte distribution width (RBC) [Entitic vol] 43.4 fL 35.1-43.9 [facility] Erythrocyte distribution width (RBC) [Ratio] 12.9 % 11.6-14.6 [facility] Immature granulocytes/100 WBC (Bld) 0.100 % 0.0-0.9 [facility] Comment on above: IG% - Immature Granu locytes (promyelocytes, myelocytes and metamyelocytes) > 1% indicates that a LEFT SHIFT is Present. MCH (RBC) [Entitic mass] 29.9 pg 27.0-32.0 [facility] Nucleated RBC/100 WBC (Bld) [Ratio] 0 % 0-5 [facility] MCHC Auto (RBC) [Mass/Vol]Or dered By: Sae Carballo on 11-15-2022 MCHC (RBC) [Mass/Vol] 32.6 g/dL 32-36 [facility] No Panel InformationOrdered By: Sae Carballo on 11-15-2022 Estimated Creatinine Clearance Calc 37.26 ml/min [facility] Estimated GFR (MDRD) Amer 78 mL/min >60 [facility] Comment on above: GFR Calc Estimated GFR (MDRD) Non-Af Amer 64 mL/min >60 [facility] Comment on above: Non- GFR Calc Platelets bldOrdered By: Ramos Carballo on 11-15-2022 Platelets (Bld) [#/Vol] 278 10*3/uL 150-450 [facility] Serum or plasma calcium viktoria urement (mass/volume)Ordered By: Sae Carballo on 11-15-2022 Calcium [Mass/Vol] 8.5 mg/dL 8.5-10.1 [facility] Serum or plasma cholesterol in HDL measurement (mass/volume)Ordered By: Sae Carballo on 11-15-2022 Cholesterol in HDL [Mass/Vol] 49 mg/dL >40 [facility] Comment on above: The drugs N-Acetylcy steine and Metamizole may falsely depress this assay. Reference Range HDL <40 mg/dL Low HDL Cholesterol HDL >or= 60 mg/dL High HDL Cholesterol Serum or plasma cholesterol in VLDL measurement (mass/volume)Ordered By: Sae Carballo on 11-15-2022 Cholesterol in VLDL [Mass/Vol] 27 mg/dL 5-40 [facility] Serum or plasma creatinine m easurement (mass/volume)Ordered By: Sae Carballo on 11-15-2022 Creatinine [Mass/Vol] 0.88 mg/dL 0.55-1.02 [facility] Comment on above: The validity of the calculated GFR & GFRAA in patients over 70 years has not been determined. Clinical correlation is essential. Serum or plasma low density lipoprotein (LDL) cholesterol measurement (mass/volume)Ordered By: Sae Carballo on 11-15-2022 Cholesterol in LDL [Mass/Vol] 88 mg/dL 0-130 [facility] Serum or plasma urea nitroge n measurement (mass/volume)Ordered By: Sae Carballo on 11-15-2022 Urea nitrogen [Mass/Vol] 14 mg/dL 7-18 [facility] Thin prep Papanicolaou smear with manual screeningOrdered By: Sae Carballo on 11-15-2022 Thin prep Papanicolaou smear with manual screening 7 5-15 [facility] Absolute lymphocyte countOrd ered By: Neri Mitchell on 11-14-2022 Lymphocytes Auto (Unsp spec) [#/Vol] 2.35 10*3/uL 0.83-4.51 [facility] Basophil percentageOrdered B y: Neri Mitchell on 11-14-2022 Basophils/100 WBC (Bld) 0.6 % 0-1 [facility] Chloride [Moles/Vol] 104 mmol/L 98-107 [facility] Eosinophils/100 WBC (Bld) 2.4 % 0-5 [facility] Glucose [Mass/Vol] 135 mg/dL 74-106 [facility] Comment on above: Fasting Glucose resu lt greater than or equal to 126 mg/dL suggests DIABETES MELLITUS per A.D.A. criteria. Neutrophils (Bld) [#/Vol] 6.0 10*3/uL 2.0-7.7 [facility] Neutrophils/100 WBC (Bld) 64.0 % 47-70 [facility] Potassium [Moles/Vol] 4.0 mmol/L 3.5-5.1 [facility] Sodium [Moles/Vol] 138 mmol/L 136-145 [facility] WBC (Bld) [#/Vol] 9.4 10*3/uL 4.4-11.0 [facility] Blood erythrocytes count (nu mber/volume)Ordered By: Neri Mitchell on 11-14-2022 RBC (Bld) [#/Vol] 4.79 10*6/uL 4.2-5.4 [facility] Blood hemoglobin measurement (mass/volume)Ordered By: Neri Mitchell on 11-14-2022 Hemoglobin (Bld) [Mass/Vol] 14.3 g/dL 12.0-15.0 [facility] Blood lymphocytes/100 leukoc ytesOrdered By: Neri Mitchell on 11-14-2022 Lymphocytes/100 WBC (Bld) 24.9 % 19-41 [facility] Blood monocytes/100 leukocyt esOrdered By: Neri Mitchell on 11-14-2022 Monocytes/100 WBC (Bld) 7.8 % 0-10 [facility] Blood platelet mean volumeOr dered By: Neri Mitchell on 11-14-2022 Platelet mean volume (Bld) [Entitic vol] 10.6 fL 6.2-12.0 [facility] Determination of erythrocyte mean corpuscular volume (MCV)Ordered By: Neri Mitchell on 11-14-2022 MCV (RBC) [Entitic vol] 93.5 fL 81-99 [facility] Glucose Glucometer (dC) [M ass/Vol]Ordered By: Neri Mitchell on 11-14-2022 Glucose [Mass/Vol] 136 mg/dL 74-106 [facility] Comment on above: MANAGEMENT OF PATIEN T CARE PER NURSING PROTOCOL Hematocrit Auto (Bld) [Volum e fraction]Ordered By: Neri Mitchell on 11-14-2022 Hematocrit (Bld) [Volume fraction] 44.8 % 37-47 [facility] INR in Blood by Coagulation assayOrdered By: Neri Mitchell on 11-14-2022 INR Coag (Bld) [Relative time] 1.8 {INR} [facility] Laboratory - Chemistry and C hemistry - challengeOrdered By: Neri Mitchell on 11-14-2022 CO2 [Moles/Vol] 28.0 mmol/L 21.0-32.0 [facility] Urea nitrogen/Creatinine [Mass ratio] 12.3 mg/mg 10-20 [facility] Laboratory - CoagulationOrde red By: Neri Mitchell on 11-14-2022 aPTT Coag (Bld) [Time] 43.3 s 24.1-36.2 [facility] PT Coag (PPP) [Time] 21.3 s 11.7-14.9 [facility] Laboratory - Hematology and Cell countsOrdered By: Neri Mitchell on 11-14-2022 Erythrocyte distribution width (RBC) [Entitic vol] 44.7 fL 35.1-43.9 [facility] Erythrocyte distribution width (RBC) [Ratio] 13.0 % 11.6-14.6 [facility] Immature granulocytes/100 WBC (Bld) 0.300 % 0.0-0.9 [facility] Comment on above: IG% - Immature Granu locytes (promyelocytes, myelocytes and metamyelocytes) > 1% indicates that a LEFT SHIFT is Present. MCH (RBC) [Entitic mass] 29.9 pg 27.0-32.0 [facility] Nucleated RBC/100 WBC (Bld) [Ratio] 0 % 0-5 [facility] MCHC Auto (RBC) [Mass/Vol]Or dered By: Neri Mitchell on 11-14-2022 MCHC (RBC) [Mass/Vol] 31.9 g/dL 32-36 [facility] No Panel InformationOrdered By: Neri Mitchell on 11-14-2022 Estimated Creatinine Clearance Calc 28.76 ml/min [facility] Estimated GFR (MDRD) Amer 58 mL/min >60 [facility] Comment on above: GFR Calc Estimated GFR (MDRD) Non-Af Amer 48 mL/min >60 [facility] Comment on above: Non- GFR Calc Troponin I High Sensitivity 10 pg/mL 3.0-54.0 [facility] Comment on above: Please Note: New Evon t Units and Gender Specific Reference Ranges. For more information see Policy Stat Procedure [place] High Sensitivity Troponin (TNIH) and attachments. Platelets bldOrdered By: Prasad santoyodinorah Paula on 11-14-2022 Platelets (Bld) [#/Vol] 313 10*3/uL 150-450 [facility] Serum or plasma calcium viktoria urement (mass/volume)Ordered By: Neri Mitchell on 11-14-2022 Calcium [Mass/Vol] 9.0 mg/dL 8.5-10.1 [facility] Serum or plasma creatinine m easurement (mass/volume)Ordered By: Neri Mitchell on 11-14-2022 Creatinine [Mass/Vol] 1.14 mg/dL 0.55-1.02 [facility] Comment on above: The validity of the calculated GFR & GFRAA in patients over 70 years has not been determined. Clinical correlation is essential. Serum or plasma urea nitroge n measurement (mass/volume)Ordered By: Neri Mitchell on 11-14-2022 Urea nitrogen [Mass/Vol] 14 mg/dL 7-18 [facility] Thin prep Papanicolaou smear with manual screeningOrdered By: Neri Mitchell on 11-14-2022 Thin prep Papanicolaou smear with manual screening 6 5-15 [facility] INR in Blood by Coagulation assayOrdered By: Dr. Juarez on 09-18-2022 INR Coag (Bld) [Relative time] 1.8 {INR} [facility] Laboratory - CoagulationOrde red By: Dr. Juarez on 09-18-2022 PT Coag (PPP) [Time] 20.9 s 11.7-14.9 [facility] No Panel InformationOrdered By: Anant Juarez on 09-18-2022 Free Lambda Light Chains, Quant 15.7 mg/L 5.7-26.3 [facility] Whole Blood Vitamin B1 Level 111.8 nmol/L 66.5-200.0 [facility] Comment on above: Performed at: [facility] [address] [id number] Director: Master Vee PhD, Phone: [phone] at: [facility]. [facility] [id number] Director: Brandon Wells MD, Phone: [phone] Serum immunoglobulin kappa l ight chains/immunoglobulin lambda light chains mass ratioOrdered By: Anant Juarez on 09-18-2022 Immunoglobulin light chains.kappa/Immunoglobul in light chains.lambda (S) [Mass ratio] 1.74 0.26-1.65 [facility] Serum or plasma folate measu rement (mass/volume)Ordered By: Dr. Juarez on 09-18-2022 Folate [Mass/Vol] 51.90 ng/mL 3.1-55.4 [facility] Comment on above: Slight Hemolysis, Re sult may be falsely increased. Serum or plasma immunoglobul in kappa light chains measurement (mass/volume)Ordered By: Anant Juarez on 09-18-2022 Immunoglobulin light chains.kappa [Mass/Vol] 27.3 mg/L 3.3-19.4 [facility] Culture, urineOrdered By: Slim Doran on 09-17-2022 Bacteria identified Cx Nom (U) Streptococcus agalactiae (B) [facility] INR in Blood by Coagulation assayOrdered By: Dr. Doran on 09-13-2022 INR Coag (Bld) [Relative time] 1.5 {INR} [facility] Laboratory - CoagulationOrde red By: Dr. Doran on 09-13-2022 PT Coag (PPP) [Time] 18.1 s 11.7-14.9 [facility] Absolute lymphocyte countOrd ered By: Dr. Barcenas on 09-08-2022 Lymphocytes Auto (Unsp spec) [#/Vol] 2.60 10*3/uL 0.83-4.51 [facility] Basophil percentageOrdered B y: Dr. Barcenas on 09-08-2022 Basophil percentage 0 SEEN /hpf 0-5 [facility] Basophils/100 WBC (Bld) 0.4 % 0-1 [facility] Bilirubin [Mass/Vol] 0.30 mg/dL 0.20-1.00 [facility] Comment on above: For patients on eltr ombopag therapy, use of Dimension [place] TBIL is not recommended. Chloride [Moles/Vol] 103 mmol/L 98-107 [facility] Eosinophils/100 WBC (Bld) 2.3 % 0-5 [facility] Glucose [Mass/Vol] 78 mg/dL 74-106 [facility] Neutrophils (Bld) [#/Vol] 5.2 10*3/uL 2.0-7.7 [facility] Neutrophils/100 WBC (Bld) 57.4 % 47-70 [facility] Potassium [Moles/Vol] 3.8 mmol/L 3.5-5.1 [facility] Protein [Mass/Vol] 6.9 g/dL 6.4-8.2 [facility] Sodium [Moles/Vol] 139 mmol/L 136-145 [facility] WBC (Bld) [#/Vol] 9.1 10*3/uL 4.4-11.0 [facility] Bilirubin Test strip Ql (U)O rdered By: Dr. Barcenas on 09-08-2022 Bilirubin Ql (U) Negative Negative [facility] Blood erythrocytes count (nu mber/volume)Ordered By: Dr. Barcenas on 09-08-2022 RBC (Bld) [#/Vol] 4.48 10*6/uL 4.2-5.4 [facility] Blood hemoglobin measurement (mass/volume)Ordered By: Dr. Barcenas on 09-08-2022 Hemoglobin (Bld) [Mass/Vol] 13.4 g/dL 12.0-15.0 [facility] Blood lymphocytes/100 leukoc ytesOrdered By: Dr. Barcenas on 09-08-2022 Lymphocytes/100 WBC (Bld) 28.5 % 19-41 [facility] Blood monocytes/100 leukocyt esOrdered By: Dr. Barcenas on 09-08-2022 Monocytes/100 WBC (Bld) 11.1 % 0-10 [facility] Blood platelet mean volumeOr dered By: Dr. Barcenas on 09-08-2022 Platelet mean volume (Bld) [Entitic vol] 10.7 fL 6.2-12.0 [facility] Determination of erythrocyte mean corpuscular volume (MCV)Ordered By: Dr. Barcenas on 09-08-2022 MCV (RBC) [Entitic vol] 92.4 fL 81-99 [facility] Hematocrit Auto (Bld) [Volum e fraction]Ordered By: Dr. Barcenas on 09-08-2022 Hematocrit (Bld) [Volume fraction] 41.4 % 37-47 [facility] INR in Blood by Coagulation assayOrdered By: Dr. Barcenas on 09-08-2022 INR Coag (Bld) [Relative time] 1.0 {INR} [facility] Ketones Test strip Ql (U)Ord ered By: Dr. Barcenas on 09-08-2022 Ketones Ql (U) Negative Negative [facility] Laboratory - Chemistry and C hemistry - challengeOrdered By: Dr. Barcenas on 09-08-2022 ALP [Catalytic activity/Vol] 71 U/L 45-117 [facility] ALT [Catalytic activity/Vol] 9 U/L 13-56 [facility] CO2 [Moles/Vol] 30.0 mmol/L 21.0-32.0 [facility] Globulin (S) [Mass/Vol] 3.7 g/dL 2.2-4.2 [facility] Urea nitrogen/Creatinine [Mass ratio] 17.1 mg/mg 10-20 [facility] Laboratory - CoagulationOrde red By: Dr. Barcenas on 09-08-2022 PT Coag (PPP) [Time] 13.6 s 11.7-14.9 [facility] Laboratory - Hematology and Cell countsOrdered By: Dr. Barcenas on 09-08-2022 Erythrocyte distribution width (RBC) [Entitic vol] 44.8 fL 35.1-43.9 [facility] Erythrocyte distribution width (RBC) [Ratio] 13.2 % 11.6-14.6 [facility] Immature granulocytes/100 WBC (Bld) 0.300 % 0.0-0.9 [facility] Comment on above: IG% - Immature Granu locytes (promyelocytes, myelocytes and metamyelocytes) > 1% indicates that a LEFT SHIFT is Present. MCH (RBC) [Entitic mass] 29.9 pg 27.0-32.0 [facility] Nucleated RBC/100 WBC (Bld) [Ratio] 0 % 0-5 [facility] MCHC Auto (RBC) [Mass/Vol]Or dered By: Dr. Barcenas on 09-08-2022 MCHC (RBC) [Mass/Vol] 32.4 g/dL 32-36 [facility] Mucus LM Ql (Urine sed)Order ed By: Dr. Barcenas on 09-08-2022 Mucus Ql (Urine sed) 0 SEEN /hpf [facility] Nitrite Test strip Ql (U)Ord ered By: Dr. Barcenas on 09-08-2022 Nitrite Ql (U) Negative Negative [facility] No Panel InformationOrdered By: Dr. Barcenas on 09-08-2022 Estimated Creatinine Clearance Calc 31.23 ml/min [facility] Estimated GFR (MDRD) Amer 64 mL/min >60 [facility] Comment on above: GFR Calc Estimated GFR (MDRD) Non-Af Amer 53 mL/min >60 [facility] Comment on above: Non- GFR Calc Troponin I High Sensitivity 86 pg/mL 3.0-54.0 [facility] Comment on above: Please Note: New Evon t Units and Gender Specific Reference Ranges. For more information see Policy Stat Procedure [place] High Sensitivity Troponin (TNIH) and attachments. Platelets bldOrdered By: Dr. Barcenas on 09-08-2022 Platelets (Bld) [#/Vol] 294 10*3/uL 150-450 [facility] Protein Test strip Ql (U)Ord ered By: Dr. Barcenas on 09-08-2022 Protein Ql (U) Negative Negative [facility] Serum or plasma albumin viktoria urement (mass/volume)Ordered By: Dr. Barcenas on 09-08-2022 Albumin [Mass/Vol] 3.2 g/dL 3.2-5.0 [facility] Serum or plasma albumin/glob ulin mass ratioOrdered By: Dr. Barcenas on 09-08-2022 Albumin/Globulin [Mass ratio] 0.9 {ratio} 0.9-2.4 [facility] Serum or plasma calcium viktoria urement (mass/volume)Ordered By: Dr. Barcenas on 09-08-2022 Calcium [Mass/Vol] 8.8 mg/dL 8.5-10.1 [facility] Serum or plasma creatinine m easurement (mass/volume)Ordered By: Dr. Barcenas on 09-08-2022 Creatinine [Mass/Vol] 1.05 mg/dL 0.55-1.02 [facility] Comment on above: The validity of the calculated GFR & GFRAA in patients over 70 years has not been determined. Clinical correlation is essential. Serum or plasma urea nitroge n measurement (mass/volume)Ordered By: Dr. Barcenas on 09-08-2022 Urea nitrogen [Mass/Vol] 18 mg/dL 7-18 [facility] Squamous epithelial cells de tection in urine sediment by light microscopyOrdered By: Dr. Barcenas on 09-08-2022 Epithelial cells.squamous LM Ql (Urine sed) 0-5 SEEN /hpf 5-10 [facility] Thin prep Papanicolaou smear with manual screeningOrdered By: Dr. Barcenas on 09-08-2022 Thin prep Papanicolaou smear with manual screening 9 U/L 15-37 [facility] Thin prep Papanicolaou smear with manual screening 6 5-15 [facility] Urine blood detectionOrdered By: Dr. Barcenas on 09-08-2022 RBC Ql (U) Negative Negative [facility] RBC Ql (U) 0 SEEN /hpf 0-5 [facility] Urine clarityOrdered By: Dr. Barcenas on 09-08-2022 Clarity (U) Clear Clear [facility] Urine color determinationOrd ered By: Dr. Barcenas on 09-08-2022 Color (U) Yellow Yellow [facility] Urine glucose detectionOrder ed By: Dr. Barcenas on 09-08-2022 Glucose Ql (U) Normal mg/dl Normal [facility] Urine leukocyte esterase det ection by dipstickOrdered By: Dr. Barcenas on 09-08-2022 Leukocyte esterase Test strip Ql (U) Negative Negative [facility] Urine pHOrdered By: Dr. Moody leal on 09-08-2022 pH (U) 6.5 [pH] 5.0 - 8.0 [facility] Urine sediment bacteria coun t by microscopy (number/high power field)Ordered By: Dr. Barcenas on 09-08-2022 Bacteria LM.HPF (Urine sed) [#/Area] 0 /[HPF] None Seen [facility] Urine specific gravity measu rementOrdered By: Dr. Barcenas on 09-08-2022 Specific gravity (U) [Rel density] 1.010 1.002-1.030 [facility] Urobilinogen Auto test strip Ql (U)Ordered By: Dr. Barcenas on 09-08-2022 Urobilinogen Ql (U) Normal mg/dl Normal [facility] Absolute lymphocyte countOrd ered By: Dr. Doran on 09-05-2022 Lymphocytes Auto (Unsp spec) [#/Vol] 1.27 10*3/uL 0.83-4.51 [facility] Basophil percentageOrdered B y: Dr. Doran on 09-05-2022 Basophils/100 WBC (Bld) 0.4 % 0-1 [facility] Chloride [Moles/Vol] 106 mmol/L 98-107 [facility] Eosinophils/100 WBC (Bld) 1.0 % 0-5 [facility] Glucose [Mass/Vol] 202 mg/dL 74-106 [facility] Comment on above: Glucose result great er than or equal to 200 mg/dLsuggests DIABETES MELLITUS per A.D.A. criteria. Neutrophils (Bld) [#/Vol] 8.3 10*3/uL 2.0-7.7 [facility] Neutrophils/100 WBC (Bld) 79.7 % 47-70 [facility] Potassium [Moles/Vol] 3.7 mmol/L 3.5-5.1 [facility] Sodium [Moles/Vol] 139 mmol/L 136-145 [facility] WBC (Bld) [#/Vol] 10.4 10*3/uL 4.4-11.0 [facility] Blood erythrocytes count (nu mber/volume)Ordered By: Dr. Doran on 09-05-2022 RBC (Bld) [#/Vol] 4.72 10*6/uL 4.2-5.4 [facility] Blood hemoglobin measurement (mass/volume)Ordered By: Dr. Doran on 09-05-2022 Hemoglobin (Bld) [Mass/Vol] 14.1 g/dL 12.0-15.0 [facility] Blood lymphocytes/100 leukoc ytesOrdered By: Dr. Doran on 09-05-2022 Lymphocytes/100 WBC (Bld) 12.3 % 19-41 [facility] Blood monocytes/100 leukocyt esOrdered By: Dr. Doran on 09-05-2022 Monocytes/100 WBC (Bld) 6.3 % 0-10 [facility] Blood platelet mean volumeOr dered By: Dr. Doran on 09-05-2022 Platelet mean volume (Bld) [Entitic vol] 11.2 fL 6.2-12.0 [facility] Determination of erythrocyte mean corpuscular volume (MCV)Ordered By: Dr. Doran on 09-05-2022 MCV (RBC) [Entitic vol] 93.9 fL 81-99 [facility] Hematocrit Auto (Bld) [Volum e fraction]Ordered By: Dr. Doran on 09-05-2022 Hematocrit (Bld) [Volume fraction] 44.3 % 37-47 [facility] INR in Blood by Coagulation assayOrdered By: Dr. Doran on 09-05-2022 INR Coag (Bld) [Relative time] 1.1 {INR} [facility] Laboratory - Chemistry and C hemistry - challengeOrdered By: Dr. Doran on 09-05-2022 CO2 [Moles/Vol] 24.0 mmol/L 21.0-32.0 [facility] Urea nitrogen/Creatinine [Mass ratio] 18.3 mg/mg 10-20 [facility] Laboratory - CoagulationOrde red By: Dr. Doran on 09-05-2022 PT Coag (PPP) [Time] 13.8 s 11.7-14.9 [facility] Laboratory - Hematology and Cell countsOrdered By: Dr. Doran on 09-05-2022 Erythrocyte distribution width (RBC) [Entitic vol] 45.5 fL 35.1-43.9 [facility] Erythrocyte distribution width (RBC) [Ratio] 13.2 % 11.6-14.6 [facility] Immature granulocytes/100 WBC (Bld) 0.300 % 0.0-0.9 [facility] Comment on above: IG% - Immature Granu locytes (promyelocytes, myelocytes and metamyelocytes) > 1% indicates that a LEFT SHIFT is Present. MCH (RBC) [Entitic mass] 29.9 pg 27.0-32.0 [facility] Nucleated RBC/100 WBC (Bld) [Ratio] 0 % 0-5 [facility] MCHC Auto (RBC) [Mass/Vol]Or dered By: Dr. Doran on 09-05-2022 MCHC (RBC) [Mass/Vol] 31.8 g/dL 32-36 [facility] No Panel InformationOrdered By: Dr. Doran on 09-05-2022 Estimated GFR (MDRD) Amer 61 mL/min >60 [facility] Comment on above: GFR Calc Estimated GFR (MDRD) Non-Af Amer 50 mL/min >60 [facility] Comment on above: Non- GFR Calc Thyroid Stimulating Hormone (TSH) 2.84 uIU/mL 0.358-3.74 [facility] Platelets bldOrdered By: Dr. Doran on 09-05-2022 Platelets (Bld) [#/Vol] 311 10*3/uL 150-450 [facility] Serum or plasma calcium viktoria urement (mass/volume)Ordered By: Dr. Doran on 09-05-2022 Calcium [Mass/Vol] 8.8 mg/dL 8.5-10.1 [facility] Serum or plasma creatinine m easurement (mass/volume)Ordered By: Dr. Doran on 09-05-2022 Creatinine [Mass/Vol] 1.09 mg/dL 0.55-1.02 [facility] Comment on above: The validity of the calculated GFR & GFRAA in patients over 70 years has not been determined. Clinical correlation is essential. Serum or plasma urea nitroge n measurement (mass/volume)Ordered By: Dr. Doran on 09-05-2022 Urea nitrogen [Mass/Vol] 20 mg/dL 7-18 [facility] Thin prep Papanicolaou smear with manual screeningOrdered By: Dr. Doran on 09-05-2022 Thin prep Papanicolaou smear with manual screening 9 5-15 [facility] Absolute lymphocyte countOrd ered By: Dr. Doran on 08-08-2022 Lymphocytes Auto (Unsp spec) [#/Vol] 1.97 10*3/uL 0.83-4.51 [facility] Basophil percentageOrdered B y: Dr. Doran on 08-08-2022 Basophils/100 WBC (Bld) 0.5 % 0-1 [facility] Chloride [Moles/Vol] 105 mmol/L 98-107 [facility] Eosinophils/100 WBC (Bld) 3.2 % 0-5 [facility] Glucose [Mass/Vol] 147 mg/dL 74-106 [facility] Comment on above: Fasting Glucose resu lt greater than or equal to 126 mg/dL suggests DIABETES MELLITUS per A.D.A. criteria. Neutrophils (Bld) [#/Vol] 4.6 10*3/uL 2.0-7.7 [facility] Neutrophils/100 WBC (Bld) 60.9 % 47-70 [facility] Potassium [Moles/Vol] 4.9 mmol/L 3.5-5.1 [facility] Sodium [Moles/Vol] 140 mmol/L 136-145 [facility] WBC (Bld) [#/Vol] 7.5 10*3/uL 4.4-11.0 [facility] Blood erythrocytes count (nu mber/volume)Ordered By: Dr. Doran on 08-08-2022 RBC (Bld) [#/Vol] 4.73 10*6/uL 4.2-5.4 [facility] Blood hemoglobin measurement (mass/volume)Ordered By: Dr. Doran on 08-08-2022 Hemoglobin (Bld) [Mass/Vol] 14.0 g/dL 12.0-15.0 [facility] Blood lymphocytes/100 leukoc ytesOrdered By: Dr. Doran on 08-08-2022 Lymphocytes/100 WBC (Bld) 26.2 % 19-41 [facility] Blood monocytes/100 leukocyt esOrdered By: Dr. Doran on 08-08-2022 Monocytes/100 WBC (Bld) 8.8 % 0-10 [facility] Blood platelet mean volumeOr dered By: Dr. Doran on 08-08-2022 Platelet mean volume (Bld) [Entitic vol] 10.9 fL 6.2-12.0 [facility] Determination of erythrocyte mean corpuscular volume (MCV)Ordered By: Dr. Doran on 08-08-2022 MCV (RBC) [Entitic vol] 94.1 fL 81-99 [facility] Hematocrit Auto (Bld) [Volum e fraction]Ordered By: Dr. Doran on 08-08-2022 Hematocrit (Bld) [Volume fraction] 44.5 % 37-47 [facility] Laboratory - Chemistry and C hemistry - challengeOrdered By: Dr. Doran on 08-08-2022 CO2 [Moles/Vol] 29.0 mmol/L 21.0-32.0 [facility] Cobalamin (Vitamin B12) [Mass/Vol] 853 pg/mL 211-911 [facility] Urea nitrogen/Creatinine [Mass ratio] 18.3 mg/mg 10-20 [facility] Laboratory - Hematology and Cell countsOrdered By: Dr. Doran on 08-08-2022 Erythrocyte distribution width (RBC) [Entitic vol] 45.5 fL 35.1-43.9 [facility] Erythrocyte distribution width (RBC) [Ratio] 13.2 % 11.6-14.6 [facility] Immature granulocytes/100 WBC (Bld) 0.400 % 0.0-0.9 [facility] Comment on above: IG% - Immature Granu locytes (promyelocytes, myelocytes and metamyelocytes) > 1% indicates that a LEFT SHIFT is Present. MCH (RBC) [Entitic mass] 29.6 pg 27.0-32.0 [facility] Nucleated RBC/100 WBC (Bld) [Ratio] 0 % 0-5 [facility] MCHC Auto (RBC) [Mass/Vol]Or dered By: Dr. Doran on 08-08-2022 MCHC (RBC) [Mass/Vol] 31.5 g/dL 32-36 [facility] No Panel InformationOrdered By: Dr. Doran on 08-08-2022 Estimated GFR (MDRD) Amer 57 mL/min >60 [facility] Comment on above: GFR Calc Estimated GFR (MDRD) Non-Af Amer 47 mL/min >60 [facility] Comment on above: Non- GFR Calc Vitamin D 25-Hydroxy 35.5 ng/mL [facility] Comment on above: Vitamin D 25(OH) Sta tus Range Deficiency <20 ng/mL (50nmol/L) Insufficiency 20 - 30 ng/mL (50 - 75 nmol/L) Sufficiency 30 - 100 ng/mL (75 - 250 nmol/L) Toxicity >100 ng/mL (>250 nmol/L) Platelets bldOrdered By: Dr. Doran on 08-08-2022 Platelets (Bld) [#/Vol] 365 10*3/uL 150-450 [facility] Serum or plasma calcium viktoria urement (mass/volume)Ordered By: Dr. Doran on 08-08-2022 Calcium [Mass/Vol] 9.2 mg/dL 8.5-10.1 [facility] Serum or plasma creatinine m easurement (mass/volume)Ordered By: Dr. Doran on 08-08-2022 Creatinine [Mass/Vol] 1.15 mg/dL 0.55-1.02 [facility] Comment on above: The validity of the calculated GFR & GFRAA in patients over 70 years has not been determined. Clinical correlation is essential. Serum or plasma ferritin rich surement (mass/volume)Ordered By: Dr. Doran on 08-08-2022 Ferritin [Mass/Vol] 83 ng/mL 8-252 [facility] Serum or plasma urea nitroge n measurement (mass/volume)Ordered By: Dr. Doran on 08-08-2022 Urea nitrogen [Mass/Vol] 21 mg/dL 7-18 [facility] Thin prep Papanicolaou smear with manual screeningOrdered By: Dr. Doran on 08-08-2022 Thin prep Papanicolaou smear with manual screening 6 5-15 [facility] Absolute lymphocyte countOrd ered By: Dr. Doran on 06-26-2022 Lymphocytes Auto (Unsp spec) [#/Vol] 2.42 10*3/uL 0.83-4.51 [facility] Basophil percentageOrdered B y: Dr. Doran on 06-26-2022 Basophils/100 WBC (Bld) 0.5 % 0-1 [facility] Bilirubin [Mass/Vol] 0.40 mg/dL 0.20-1.00 [facility] Comment on above: For patients on eltr ombopag therapy, use of Dimension [place] TBIL is not recommended. Chloride [Moles/Vol] 106 mmol/L 98-107 [facility] Cholesterol [Mass/Vol] 163 mg/dL <200 [facility] Comment on above: <200 mg/dL Desirable 200-240 mg/dL Borderline >240 mg/dL High Risk Eosinophils/100 WBC (Bld) 4.2 % 0-5 [facility] Glucose [Mass/Vol] 142 mg/dL 74-106 [facility] Comment on above: Fasting Glucose resu lt greater than or equal to 126 mg/dL suggests DIABETES MELLITUS per A.D.A. criteria. Neutrophils (Bld) [#/Vol] 3.9 10*3/uL 2.0-7.7 [facility] Neutrophils/100 WBC (Bld) 53.1 % 47-70 [facility] Potassium [Moles/Vol] 4.3 mmol/L 3.5-5.1 [facility] Protein [Mass/Vol] 6.9 g/dL 6.4-8.2 [facility] Sodium [Moles/Vol] 139 mmol/L 136-145 [facility] Triglyceride [Mass/Vol] 178 mg/dL <199 [facility] Comment on above: The drugs N-Acetylcy steine and Metamizole may falsely depress this assay.Serum Triglycerides Reference Interval Normal <150 mg/dL Borderline high 150 - 199 mg/dL High 200 - 499 mg/dL Very High > or = 500 mg/dL WBC (Bld) [#/Vol] 7.4 10*3/uL 4.4-11.0 [facility] Blood erythrocytes count (nu mber/volume)Ordered By: Dr. Doran on 06-26-2022 RBC (Bld) [#/Vol] 4.51 10*6/uL 4.2-5.4 [facility] Blood hemoglobin measurement (mass/volume)Ordered By: Dr. Doran on 06-26-2022 Hemoglobin (Bld) [Mass/Vol] 13.5 g/dL 12.0-15.0 [facility] Blood lymphocytes/100 leukoc ytesOrdered By: Dr. Doran on 06-26-2022 Lymphocytes/100 WBC (Bld) 32.9 % 19-41 [facility] Blood monocytes/100 leukocyt esOrdered By: Dr. Doran on 06-26-2022 Monocytes/100 WBC (Bld) 9.0 % 0-10 [facility] Blood platelet mean volumeOr dered By: Dr. Doran on 06-26-2022 Platelet mean volume (Bld) [Entitic vol] 10.2 fL 6.2-12.0 [facility] Determination of erythrocyte mean corpuscular volume (MCV)Ordered By: Dr. Doran on 06-26-2022 MCV (RBC) [Entitic vol] 92.5 fL 81-99 [facility] Hematocrit Auto (Bld) [Volum e fraction]Ordered By: Dr. Doran on 06-26-2022 Hematocrit (Bld) [Volume fraction] 41.7 % 37-47 [facility] Laboratory - Chemistry and C hemistry - challengeOrdered By: Dr. Doran on 06-26-2022 ALP [Catalytic activity/Vol] 69 U/L 45-117 [facility] ALT [Catalytic activity/Vol] 13 U/L 13-56 [facility] CO2 [Moles/Vol] 29.0 mmol/L 21.0-32.0 [facility] Globulin (S) [Mass/Vol] 3.7 g/dL 2.2-4.2 [facility] Urea nitrogen/Creatinine [Mass ratio] 18.0 mg/mg 10-20 [facility] Laboratory - Hematology and Cell countsOrdered By: Dr. Doran on 06-26-2022 Erythrocyte distribution width (RBC) [Entitic vol] 43.9 fL 35.1-43.9 [facility] Erythrocyte distribution width (RBC) [Ratio] 12.9 % 11.6-14.6 [facility] Immature granulocytes/100 WBC (Bld) 0.300 % 0.0-0.9 [facility] Comment on above: IG% - Immature Granu locytes (promyelocytes, myelocytes and metamyelocytes) > 1% indicates that a LEFT SHIFT is Present. MCH (RBC) [Entitic mass] 29.9 pg 27.0-32.0 [facility] Nucleated RBC/100 WBC (Bld) [Ratio] 0 % 0-5 [facility] MCHC Auto (RBC) [Mass/Vol]Or dered By: Dr. Doran on 06-26-2022 MCHC (RBC) [Mass/Vol] 32.4 g/dL 32-36 [facility] No Panel InformationOrdered By: Dr. Doran on 06-26-2022 Estimated GFR (MDRD) Amer 60 mL/min >60 [facility] Comment on above: GFR Calc Estimated GFR (MDRD) Non-Af Amer 49 mL/min >60 [facility] Comment on above: Non- GFR Calc Platelets bldOrdered By: Dr. Doran on 06-26-2022 Platelets (Bld) [#/Vol] 314 10*3/uL 150-450 [facility] Serum or plasma albumin viktoria urement (mass/volume)Ordered By: Dr. Doran on 06-26-2022 Albumin [Mass/Vol] 3.2 g/dL 3.2-5.0 [facility] Serum or plasma albumin/glob ulin mass ratioOrdered By: Dr. Doran on 06-26-2022 Albumin/Globulin [Mass ratio] 0.9 {ratio} 0.9-2.4 [facility] Serum or plasma calcium viktoria urement (mass/volume)Ordered By: Dr. Doran on 06-26-2022 Calcium [Mass/Vol] 8.8 mg/dL 8.5-10.1 [facility] Serum or plasma cholesterol in HDL measurement (mass/volume)Ordered By: Dr. Doran on 06-26-2022 Cholesterol in HDL [Mass/Vol] 47 mg/dL >40 [facility] Comment on above: The drugs N-Acetylcy steine and Metamizole may falsely depress this assay. Reference Range HDL <40 mg/dL Low HDL Cholesterol HDL >or= 60 mg/dL High HDL Cholesterol Serum or plasma cholesterol in VLDL measurement (mass/volume)Ordered By: Dr. Doran on 06-26-2022 Cholesterol in VLDL [Mass/Vol] 36 mg/dL 5-40 [facility] Serum or plasma creatinine m easurement (mass/volume)Ordered By: Dr. Doran on 06-26-2022 Creatinine [Mass/Vol] 1.11 mg/dL 0.55-1.02 [facility] Comment on above: The validity of the calculated GFR & GFRAA in patients over 70 years has not been determined. Clinical correlation is essential. Serum or plasma low density lipoprotein (LDL) cholesterol measurement (mass/volume)Ordered By: Dr. Doran on 06-26-2022 Cholesterol in LDL [Mass/Vol] 80 mg/dL 0-130 [facility] Serum or plasma urea nitroge n measurement (mass/volume)Ordered By: Dr. Doran on 06-26-2022 Urea nitrogen [Mass/Vol] 20 mg/dL 7-18 [facility] Thin prep Papanicolaou smear with manual screeningOrdered By: Dr. Doran on 06-26-2022 Thin prep Papanicolaou smear with manual screening 15 U/L 15-37 [facility] Thin prep Papanicolaou smear with manual screening 4 5-15 [facility] Absolute lymphocyte countOrd ered By: Reese Shankar on 02-11-2022 Lymphocytes Auto (Unsp spec) [#/Vol] 1.50 10*3/uL 0.83-4.51 [facility] Basophil percentageOrdered B y: Reese Shankar on 02-11-2022 Basophils/100 WBC (Bld) 0.4 % 0-1 [facility] Chloride [Moles/Vol] 102 mmol/L 98-107 [facility] Eosinophils/100 WBC (Bld) 1.7 % 0-5 [facility] Glucose [Mass/Vol] 153 mg/dL 74-106 [facility] Comment on above: Fasting Glucose resu lt greater than or equal to 126 mg/dL suggests DIABETES MELLITUS per A.D.A. criteria. Neutrophils (Bld) [#/Vol] 10.0 10*3/uL 2.0-7.7 [facility] Neutrophils/100 WBC (Bld) 79.1 % 47-70 [facility] Potassium [Moles/Vol] 3.9 mmol/L 3.5-5.1 [facility] Sodium [Moles/Vol] 138 mmol/L 136-145 [facility] WBC (Bld) [#/Vol] 12.7 10*3/uL 4.4-11.0 [facility] Blood erythrocytes count (nu mber/volume)Ordered By: Reese Shankar on 02-11-2022 RBC (Bld) [#/Vol] 4.24 10*6/uL 4.2-5.4 [facility] Blood hemoglobin measurement (mass/volume)Ordered By: Reese Shankar on 02-11-2022 Hemoglobin (Bld) [Mass/Vol] 12.8 g/dL 12.0-15.0 [facility] Blood lymphocytes/100 leukoc ytesOrdered By: Reese Shankar on 02-11-2022 Lymphocytes/100 WBC (Bld) 11.8 % 19-41 [facility] Blood monocytes/100 leukocyt esOrdered By: Reese Shankar on 02-11-2022 Monocytes/100 WBC (Bld) 6.7 % 0-10 [facility] Blood platelet mean volumeOr dered By: Reese Shankar on 02-11-2022 Platelet mean volume (Bld) [Entitic vol] 11.0 fL 6.2-12.0 [facility] Determination of erythrocyte mean corpuscular volume (MCV)Ordered By: Reese Shankar on 02-11-2022 MCV (RBC) [Entitic vol] 91.7 fL 81-99 [facility] Hematocrit Auto (Bld) [Volum e fraction]Ordered By: Reese Shankar on 02-11-2022 Hematocrit (Bld) [Volume fraction] 38.9 % 37-47 [facility] INR in Blood by Coagulation assayOrdered By: Reese Shankar on 02-11-2022 INR Coag (Bld) [Relative time] 2.7 {INR} [facility] Laboratory - Chemistry and C hemistry - challengeOrdered By: Reese Shankar on 02-11-2022 CO2 [Moles/Vol] 26.0 mmol/L 21.0-32.0 [facility] Magnesium [Mass/Vol] 2.2 mg/dL 1.6-2.6 [facility] Urea nitrogen/Creatinine [Mass ratio] 18.5 mg/mg 10-20 [facility] Laboratory - CoagulationOrde red By: Reese Shankar on 02-11-2022 PT Coag (PPP) [Time] 28.0 s 11.7-14.9 [facility] Laboratory - Hematology and Cell countsOrdered By: Reese Shankar on 02-11-2022 Erythrocyte distribution width (RBC) [Entitic vol] 43.5 fL 35.1-43.9 [facility] Erythrocyte distribution width (RBC) [Ratio] 12.9 % 11.6-14.6 [facility] Immature granulocytes/100 WBC (Bld) 0.300 % 0.0-0.9 [facility] Comment on above: IG% - Immature Granu locytes (promyelocytes, myelocytes and metamyelocytes) > 1% indicates that a LEFT SHIFT is Present. MCH (RBC) [Entitic mass] 30.2 pg 27.0-32.0 [facility] Nucleated RBC/100 WBC (Bld) [Ratio] 0 % 0-5 [facility] MCHC Auto (RBC) [Mass/Vol]Or dered By: Reese Shankar on 02-11-2022 MCHC (RBC) [Mass/Vol] 32.9 g/dL 32-36 [facility] No Panel InformationOrdered By: Reese Shankar on 02-11-2022 Estimated Creatinine Clearance Calc 19.31 ml/min [facility] Estimated GFR (MDRD) Amer 36 mL/min >60 [facility] Comment on above: GFR Calc Estimated GFR (MDRD) Non-Af Amer 30 mL/min >60 [facility] Comment on above: Non- GFR Calc Troponin I High Sensitivity 13 pg/mL 3.0-54.0 [facility] Comment on above: Please Note: New Evon t Units and Gender Specific Reference Ranges. For more information see Policy Stat Procedure [place] High Sensitivity Troponin (TNIH) and attachments. Platelets bldOrdered By: Dontae Shankar on 02-11-2022 Platelets (Bld) [#/Vol] 286 10*3/uL 150-450 [facility] Serum or plasma calcium viktoria urement (mass/volume)Ordered By: Reese Shankar on 02-11-2022 Calcium [Mass/Vol] 9.1 mg/dL 8.5-10.1 [facility] Serum or plasma creatinine m easurement (mass/volume)Ordered By: Reese Shankar on 02-11-2022 Creatinine [Mass/Vol] 1.73 mg/dL 0.55-1.02 [facility] Comment on above: The validity of the calculated GFR & GFRAA in patients over 70 years has not been determined. Clinical correlation is essential. Serum or plasma urea nitroge n measurement (mass/volume)Ordered By: Reese Shankar on 02-11-2022 Urea nitrogen [Mass/Vol] 32 mg/dL 7-18 [facility] Thin prep Papanicolaou smear with manual screeningOrdered By: Reese Shankar on 02-11-2022 Thin prep Papanicolaou smear with manual screening 10 5-15 [facility] CNPNon 10-14-2019 CNPN Telephone (AGCARDPOB ) EZRA GONZALEZ ([id number]) 1935 F Date Time Provider Department 10/14/19 RICKEY CHAVARRIA AGCARDPOB During your visit today, we recorded the following information about you: Elver Acosta 10/14/2019 8:53 AM Signed I called patient and left a voicemail for her to call back and confirm appointment date and time with Dr. Bishop Acosta Allergies As of Date: 10/14/2019 Noted Allergy Reaction CODEINE 03/20/2015 16 - Unknown CRESTOR (ROSUVASTATIN) 03/20/2015 14 - Other: See Comments Comments: Myalgias DEMEROL (MEPERIDINE) 03/20/2015 8 - GI Upset LATEX 03/20/2015 2 - Rash LIPITOR (ATORVASTATIN) 03/20/2015 14 - Other: See Comments Comments: Myalgias Date Reviewed: 05/13/2019 Reviewed by: Cruz Sanchez - Fully Assessed Reason for Visit: Future Appointment [256] Prescriptions as of 10/14/2019 Sig: FUROSEMIDE 20 MG TABLET TAKE ONE TABLET BY MOUTH EVER* METOPROLOL SUCCINATE ER 100 M* TAKE ONE-HALF TABLET BY MOUTH* SIMVASTATIN 20 MG TABLET TAKE ONE TABLET BY MOUTH ADITI* JANTOVEN 2 MG TABLET take 1 tablet (2 mg) by mouth* LISINOPRIL 5 MG TABLET TAKE ONE TABLET BY MOUTH onc* RANITIDINE 150 MG TABLET TAKE ONE TABLET BY MOUTH EVER* COQ-10 ORAL Take 1 capsule by mouth once * METFORMIN 500 MG TABLET Take 1 tablet by mouth daily * LANCETS Use as instructed BLOOD SUGAR DIAGNOSTIC STRIPS Use as instructed. 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] 05/19/2015 Reactive airway disease [J45.909] 11/14/2015 S/P coronary artery stent placement- 2006 [Z95*11/14/2015 Atherosclerosis of [place] coronary artery of na*11/14/2015 Asymptomatic cholelithiasis [K80.20] 12/18/2015 Hemarthrosis involving knee joint [M25.069] 02/09/2016 11/13/2016 History of knee replacement, total-bilateral [*02/09/2016 Presence of stent in coronary artery [Z95.5] 03/02/2016 OAB (overactive bladder) [N32.81] 12/11/2016 Incontinence of feces with fecal urgency [R15.9*12/11/2016 Chronic kidney disease, stage 2, mildly decreas* Tubular adenoma of colon-= 2014 last scope [D12* Adjustment disorder with depressed mood [F43.21]07/07/2017 Coronary arteriosclerosis [I25.10] Obesity, Class I, BMI 30-34.9 E66.9 [E66.9] 07/21/2017 Osteopenia of multiple sites [M85.89] 01/05/2018 Status post ablation of atrial fibrillation [Z9*01/05/2018 Chronic anticoagulation [Z79.01] 11/27/2018 Tendinitis of right rotator cuff [M75.81] 02/04/2019 S/P right rotator cuff repair [Z98.890] 02/04/2019 Rotator cuff tear arthropathy, right [M75.101, *02/04/2019 Encounter Status:Closed by ELVER ACOSTA on 10/14/19 [facility] CNPTOUTREACHochastity 10-12-2019 [facility] Patient Outreach ([facility]) EZRA GONZALEZ ([id number]) 1935 F Date Time Provider Department 10/12/19 SWATHI CRUZ) [facility] During your visit today, we recorded the following information about you: Swathi Cruz LPN, LPN 10/12/2019 10:48 AM Signed ED Follow Up: Patient discharged from [facility] ED on 10/11/2019 for Fall, rib fracture Outreach # 1, Contact Made. Patient was called at this time. Patient verified by name and . Patient stated she has a new PCP Dr. Sada Doran who she will follow up with. Swathi Cruz LPN 10/12/2019 10:45 AM Allergies As of Date: 10/12/2019 Noted Allergy Reaction CODEINE 03/20/2015 16 - Unknown CRESTOR (ROSUVASTATIN) 03/20/2015 14 - Other: See Comments Comments: Myalgias DEMEROL (MEPERIDINE) 03/20/2015 8 - GI Upset LATEX 03/20/2015 2 - Rash LIPITOR (ATORVASTATIN) 03/20/2015 14 - Other: See Comments Comments: Myalgias Date Reviewed: 05/13/2019 Reviewed by: Cruz Sanchez - Fully Assessed Reason for Visit: Transition Of Care [4074] Cmt: ED [facility] 10/11/2019 (Pt. has new pcp) Reason For Visit History Recorded Prescriptions as of 10/12/2019 Sig: FUROSEMIDE 20 MG TABLET TAKE ONE TABLET BY MOUTH EVER* METOPROLOL SUCCINATE ER 100 M* TAKE ONE-HALF TABLET BY MOUTH* SIMVASTATIN 20 MG TABLET TAKE ONE TABLET BY MOUTH ADITI* JANTOVEN 2 MG TABLET take 1 tablet (2 mg) by mouth* LISINOPRIL 5 MG TABLET TAKE ONE TABLET BY MOUTH onc* RANITIDINE 150 MG TABLET TAKE ONE TABLET BY MOUTH EVER* COQ-10 ORAL Take 1 capsule by mouth once * METFORMIN 500 MG TABLET Take 1 tablet by mouth daily * LANCETS Use as instructed BLOOD SUGAR DIAGNOSTIC STRIPS Use as instructed. 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.642] 05/19/2015 Reactive airway disease [J45.909] 11/14/2015 S/P coronary artery stent placement- 2006 [Z95*11/14/2015 Atherosclerosis of [place] coronary artery of na*11/14/2015 Asymptomatic cholelithiasis [K80.20] 12/18/2015 Hemarthrosis involving knee joint [M25.069] 02/09/2016 11/13/2016 History of knee replacement, total-bilateral [*02/09/2016 Presence of stent in coronary artery [Z95.5] 03/02/2016 OAB (overactive bladder) [N32.81] 12/11/2016 Incontinence of feces with fecal urgency [R15.9*12/11/2016 Chronic kidney disease, stage 2, mildly decreas* Tubular adenoma of colon-= 2014 last scope [D12* Adjustment disorder with depressed mood [F43.21]07/07/2017 Coronary arteriosclerosis [I25.10] Obesity, Class I, BMI 30-34.9 E66.9 [E66.9] 07/21/2017 Osteopenia of multiple sites [M85.89] 01/05/2018 Status post ablation of atrial fibrillation [Z9*01/05/2018 Chronic anticoagulation [Z79.01] 11/27/2018 Tendinitis of right rotator cuff [M75.81] 02/04/2019 S/P right rotator cuff repair [Z98.890] 02/04/2019 Rotator cuff tear arthropathy, right [M75.101, *02/04/2019 Encounter Status:Closed by SWATHI CRUZ LPN on 10/12/19 [facility] OBSOLETEon 10-12-2019 OBSOLETE Refill ([facility]) EZRA GONZALEZ ([id number]) 1935 F Date Time Provider Department 10/12/19 JO PEREZ [facility] During your visit today, we recorded the following information about you: Anne Marie Hobbs Reg 10/12/2019 7:50 AM Signed Pharmacy faxed requesting the following refill. Pending Prescriptions Disp Refills FUROSEMIDE 20 MG TABLET 90 tablet 0 Sig: TAKE ONE TABLET BY MOUTH EVERY DAY SHAHEEN: Yes Last refill: 01/21/2019 Patient last appointment: 09/22/2019 Patient next appointment: Visit date not found Patient Phone numbers: [phone] (home) Request is for script(s) to be escript to pharmacy. Anne Marie Hobbs Reg Allergies As of Date: 10/12/2019 Noted Allergy Reaction CODEINE 03/20/2015 16 - Unknown CRESTOR (ROSUVASTATIN) 03/20/2015 14 - Other: See Comments Comments: Myalgias DEMEROL (MEPERIDINE) 03/20/2015 8 - GI Upset LATEX 03/20/2015 2 - Rash LIPITOR (ATORVASTATIN) 03/20/2015 14 - Other: See Comments Comments: Myalgias Date Reviewed: 05/13/2019 Reviewed by: Cruz Sanchez - Fully Assessed Reason for Visit: Refill Request [94] Refill Request [94] Reason For Visit History Recorded Order(s):furosemide (LASIX) 20 mg tabletTAKE ONE TABLET BY MOUTH EVERY DAYDisp: 90 tabletRfl: 3 Prescriptions as of 10/12/2019 Sig: FUROSEMIDE 20 MG TABLET TAKE ONE TABLET BY MOUTH EVER* METOPROLOL SUCCINATE ER 100 M* TAKE ONE-HALF TABLET BY MOUTH* SIMVASTATIN 20 MG TABLET TAKE ONE TABLET BY MOUTH ADITI* JANTOVEN 2 MG TABLET take 1 tablet (2 mg) by mouth* LISINOPRIL 5 MG TABLET TAKE ONE TABLET BY MOUTH onc* RANITIDINE 150 MG TABLET TAKE ONE TABLET BY MOUTH EVER* COQ-10 ORAL Take 1 capsule by mouth once * METFORMIN 500 MG TABLET Take 1 tablet by mouth daily * LANCETS Use as instructed BLOOD SUGAR DIAGNOSTIC STRIPS Use as instructed. 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.642] 05/19/2015 Reactive airway disease [J45.909] 11/14/2015 S/P coronary artery stent placement- 2006 [Z95*11/14/2015 Atherosclerosis of [place] coronary artery of na*11/14/2015 Asymptomatic cholelithiasis [K80.20] 12/18/2015 Hemarthrosis involving knee joint [M25.069] 02/09/2016 11/13/2016 History of knee replacement, total-bilateral [*02/09/2016 Presence of stent in coronary artery [Z95.5] 03/02/2016 OAB (overactive bladder) [N32.81] 12/11/2016 Incontinence of feces with fecal urgency [R15.9*12/11/2016 Chronic kidney disease, stage 2, mildly decreas* Tubular adenoma of colon-= 2014 last scope [D12* Adjustment disorder with depressed mood [F43.21]07/07/2017 Coronary arteriosclerosis [I25.10] Obesity, Class I, BMI 30-34.9 E66.9 [E66.9] 07/21/2017 Osteopenia of multiple sites [M85.89] 01/05/2018 Status post ablation of atrial fibrillation [Z9*01/05/2018 Chronic anticoagulation [Z79.01] 11/27/2018 Tendinitis of right rotator cuff [M75.81] 02/04/2019 S/P right rotator cuff repair [Z98.890] 02/04/2019 Rotator cuff tear arthropathy, right [M75.101, *02/04/2019 Prescriptions ordered this encounter Disp Refills Start End FUROSEMIDE 20 MG TABLET 90 t* 3 10/12/2019 Sig: TAKE ONE TABLET BY MOUTH EVERY DAY Medications Discontinued During This Encounter Prescriptions - furosemide (LASIX) 20 mg tablet (Discontinued) TAKE ONE TABLET BY MOUTH ONCE DAILY Encounter Status:Closed by LYNN BENEDICT LPN on 11/11/19 [facility] PROGRESSon 10-12-2019 PROGRESS HNO ID: [id number] Author: Swathi Cruz LPN Service: ? Author Type: LICENSED NURSE Type: Progress Notes Filed: 10/12/2019 10:48 AM Note Text: ED Follow Up: Patient discharged from [facility] ED on 10/11/2019 for Fall, rib fracture Outreach # 1, Contact Made. Patient was called at this time. Patient verified by name and . Patient stated she has a new PCP Dr. Sada Doran who she will follow up with. Swathi Cruz LPN 10/12/2019 10:45 AM [facility] Bao 10-06-2019 JAROD Telephone ([facility]) LISAEZRA ([id number]) 1935 F Date Time Provider Department 10/06/19 ESTEFANIA CEVALLOS During your visit today, we recorded the following information about you: Estefania Cevallos PharmD 10/06/2019 1:08 PM Signed Referred by Dr. Chavarria Indication: Atrial fibrillation. CHADS-VASc= 8 (CAD s/p PCI and stent, DM, HTN, age >75, female, TIA (amaurosis fugax). She has a history of hemarthrosis in 2016 when INR was 14 secondary to interaction with warfarin and fluconazole. INR goal: 2 to 3 Duration: Indefinite Bridging assessment and details: CHADS-VASc= 8 (CAD s/p PCI and stent, DM, HTN, age >75, female, TIA (amaurosis fugax). She has a history of hemarthrosis in 2016 when INR was 14 secondary to interaction with warfarin and fluconazole. Date consult agreement signed by physician: 12/26/16 Patient has been notified verbally and/or in writing of the terms of the pharmacist-physician consult agreement for the anticoagulation clinic. Date: 12/30/16 +++Patient gets lab draw at [facility] in [place] [phone]+++ PT INR Date Value Ref Range Status 10/04/2019 2.1 Final Warfarin Dose: 2mg Friday; 3mg all other days of the week. Description CONTINUE 2mg Friday, Friday, and Friday; 3mg all other days of the week. Recheck 4 weeks. Patient has been on current warfarin dose for quite some time. Last INR was therapeutic 4 weeks ago. INR remains stable today. Will continue this dose. Patient will be seeing a new PCP on Friday and will discuss with them whether or not they will manage warfarin or if we will still manage. She will let us know. Discussed with patient on the phone who read back instructions and verbalized understanding. Estefania Cevallos PharmD Allergies As of Date: 10/06/2019 Noted Allergy Reaction CODEINE 03/20/2015 16 - Unknown CRESTOR (ROSUVASTATIN) 03/20/2015 14 - Other: See Comments Comments: Myalgias DEMEROL (MEPERIDINE) 03/20/2015 8 - GI Upset LATEX 03/20/2015 2 - Rash LIPITOR (ATORVASTATIN) 03/20/2015 14 - Other: See Comments Comments: Myalgias Date Reviewed: 05/13/2019 Reviewed by: Cruz Sanchez - Fully Assessed Reason for Visit: Coumadin/INR [1207] Visit Diagnosis:Atrial fibrillation, unspecified type (HCC) [I48.91] Order(s):PROTHROMBIN TIME/PT [SQPT] Order #: [id number] Prescriptions as of 10/06/2019 Sig: METOPROLOL SUCCINATE ER 100 M* TAKE ONE-HALF TABLET BY MOUTH* SIMVASTATIN 20 MG TABLET TAKE ONE TABLET BY MOUTH ADITI* JANTOVEN 2 MG TABLET take 1 tablet (2 mg) by mouth* LISINOPRIL 5 MG TABLET TAKE ONE TABLET BY MOUTH onc* RANITIDINE 150 MG TABLET TAKE ONE TABLET BY MOUTH EVER* COQ-10 ORAL Take 1 capsule by mouth once * METFORMIN 500 MG TABLET Take 1 tablet by mouth daily * FUROSEMIDE 20 MG TABLET TAKE ONE TABLET BY MOUTH ONCE* LANCETS Use as instructed BLOOD SUGAR DIAGNOSTIC STRIPS Use as instructed. 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] 05/19/2015 Reactive airway disease [J45.909] 11/14/2015 S/P coronary artery stent placement- 2006 [Z95*11/14/2015 Atherosclerosis of [place] coronary artery of na*11/14/2015 Asymptomatic cholelithiasis [K80.20] 12/18/2015 Hemarthrosis involving knee joint [M25.069] 02/09/2016 11/13/2016 History of knee replacement, total-bilateral [*02/09/2016 Presence of stent in coronary artery [Z95.5] 03/02/2016 OAB (overactive bladder) [N32.81] 12/11/2016 Incontinence of feces with fecal urgency [R15.9*12/11/2016 Chronic kidney disease, stage 2, mildly decreas* Tubular adenoma of colon-= 2014 last scope [D12* Adjustment disorder with depressed mood [F43.21]07/07/2017 Coronary arteriosclerosis [I25.10] Obesity, Class I, BMI 30-34.9 E66.9 [E66.9] 07/21/2017 Osteopenia of multiple sites [M85.89] 01/05/2018 Status post ablation of atrial fibrillation [Z9*01/05/2018 Chronic anticoagulation [Z79.01] 11/27/2018 Tendinitis of right rotator cuff [M75.81] 02/04/2019 S/P right rotator cuff repair [Z98.890] 02/04/2019 Rotator cuff tear arthropathy, right [M75.101, *02/04/2019 Encounter Status:Closed by BHAKTI (PHARMACIST)ESTEFANIA on 10/06/19 [facility] CNPMari 09-22-2019 CNP Telephone ([facility]) EZRA GONZALEZ ([id number]) 1935 F Date Time Provider Department 09/22/19 JO PEREZ [facility] During your visit today, we recorded the following information about you: Maryanne Gomez MA 09/22/2019 10:38 AM Signed Patient is aware that you are going to be leaving the practice. She states she recently moved down to [place] and wants to find a physician closer to her Is there anyone that you recommend Maryanne Gomez MA 09/22/2019 10:37 AM Jo Perez MD 09/22/2019 12:[address] [facility] Alicia Park LPN 09/22/2019 1:21 PM Signed Patient notified of below information and verbalized understanding. Allergies As of Date: 09/22/2019 Noted Allergy Reaction CODEINE 03/20/2015 16 - Unknown CRESTOR (ROSUVASTATIN) 03/20/2015 14 - Other: See Comments Comments: Myalgias DEMEROL (MEPERIDINE) 03/20/2015 8 - GI Upset LATEX 03/20/2015 2 - Rash LIPITOR (ATORVASTATIN) 03/20/2015 14 - Other: See Comments Comments: Myalgias Date Reviewed: 05/13/2019 Reviewed by: Cruz Sanchez - Fully Assessed Reason for Visit: Patient Question [9179] Cmt: Physicans in [place] area Prescriptions as of 09/22/2019 Sig: METOPROLOL SUCCINATE ER 100 M* TAKE ONE-HALF TABLET BY MOUTH* SIMVASTATIN 20 MG TABLET TAKE ONE TABLET BY MOUTH ADITI* JANTOVEN 2 MG TABLET take 1 tablet (2 mg) by mouth* LISINOPRIL 5 MG TABLET TAKE ONE TABLET BY MOUTH onc* RANITIDINE 150 MG TABLET TAKE ONE TABLET BY MOUTH EVER* COQ-10 ORAL Take 1 capsule by mouth once * METFORMIN 500 MG TABLET Take 1 tablet by mouth daily * FUROSEMIDE 20 MG TABLET TAKE ONE TABLET BY MOUTH ONCE* LANCETS Use as instructed BLOOD SUGAR DIAGNOSTIC STRIPS Use as instructed. 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] 05/19/2015 Reactive airway disease [J45.909] 11/14/2015 S/P coronary artery stent placement- 2006 [Z95*11/14/2015 Atherosclerosis of [place] coronary artery of na*11/14/2015 Asymptomatic cholelithiasis [K80.20] 12/18/2015 Hemarthrosis involving knee joint [M25.069] 02/09/2016 11/13/2016 History of knee replacement, total-bilateral [*02/09/2016 Presence of stent in coronary artery [Z95.5] 03/02/2016 OAB (overactive bladder) [N32.81] 12/11/2016 Incontinence of feces with fecal urgency [R15.9*12/11/2016 Chronic kidney disease, stage 2, mildly decreas* Tubular adenoma of colon-= 2014 last scope [D12* Adjustment disorder with depressed mood [F43.21]07/07/2017 Coronary arteriosclerosis [I25.10] Obesity, Class I, BMI 30-34.9 E66.9 [E66.9] 07/21/2017 Osteopenia of multiple sites [M85.89] 01/05/2018 Status post ablation of atrial fibrillation [Z9*01/05/2018 Chronic anticoagulation [Z79.01] 11/27/2018 Tendinitis of right rotator cuff [M75.81] 02/04/2019 S/P right rotator cuff repair [Z98.890] 02/04/2019 Rotator cuff tear arthropathy, right [M75.101, *02/04/2019 Encounter Status:Closed by ALICIA PARK on 09/22/19 [facility] CNPTOUTREACHochastity 09-22-2019 [facility] EZRA GONZALEZ ([id number]) 1935 F Date Time Provider Department 09/22/19 MARYANNE GOMEZ) [facility] During your visit today, we recorded the following information about you: Maryanne Gomez MA 09/22/2019 10:34 AM Signed HIGH RISK CHRONIC DISEASE MONITORING - [facility] Provider Action/FYI: Patient doing well Contact made with patient: Yes Hi my name is Maryanne REGI Gomez and I am calling from the [facility] on behalf of your PCP. I'm calling to speak with Ezra Gonzalez. Patient identified by name and . Discussed care with patient. Because of the Covid-19 outbreak, I am calling to help make sure you are feeling well and that you have what you need to manage your well-being, since it is so important to stay home and take social distancing seriously to help protect your health at this time. If you have any concerns, we will come up with a plan on how to proceed. SYMPTOMS: I'd like to ask some questions about how you are managing your health. Would that be OK? Yes Do you have any new or worsening symptoms that you'd like to discuss with your doctor? No ACTION TAKEN: No action required - No symptoms reported; Continue outreach MEDICATIONS: Do you have any questions about taking your medication or which medications you should be on? No Do you need any medication refills at this time, including any of the medications you might take only when needed? No ACTION TAKEN: No action required SOCIAL: We would like to make sure you have what you need so that your basics needs are met - including your personal safety, food, housing and medications. Would you like to speak with a social work bioinformatics team member to help give you support for any of these needs? No It can be normal to feel anxious or down during a time like this. Would you like to talk to a mental health professional about how you have been feeling? No ACTION TAKEN: No action taken At present, these are our recommendations regarding the coronavirus (COVID-19) outbreak: ? Avoid public places as much as possible. ? Avoid close contact (within 6 feet) with others you don't live with, especially if they are sick. ? Stay home if you are sick. ? Wash your hands regularly for at least 20 seconds with soap and water. ? Wear a cloth mask in public places to help reduce community spread. ? Do not go to your Doctor's office unless instructed to do so. For any non-emergency symptoms, call your Doctor's office to get instructions on how to manage (we might recommend a telephone or virtual visit). For emergency symptoms, proceed to Emergency Department as usual but inform them of cough and fever symptoms ABBIE if present (or call on the way if possible). Thank you for taking the time to talk with me today. We want to work with you to ensure that we are keeping your medical conditions well-controlled and to keep you healthy and out of the doctor's office or hospital. Our team would like to stay connected with you to make sure you are feeling well. Our calls should take 10 minutes or less, and we'll plan to call you weekly for the next few weeks to months while this outbreak continues to help make sure you stay well. Remember in the meantime, if you have concerns in between our calls, please call your PCP's office right away. Thank you. (Enter next patient outreach date for the following week on the same day of the week as today in the Track Pt Outreach.) Maryanne Gomez MA 09/22/2019 10:33 AM Allergies As of Date: 09/22/2019 Noted Allergy Reaction CODEINE 03/20/2015 16 - Unknown CRESTOR (ROSUVASTATIN) 03/20/2015 14 - Other: See Comments Comments: Myalgias DEMEROL (MEPERIDINE) 03/20/2015 8 - GI Upset LATEX 03/20/2015 2 - Rash LIPITOR (ATORVASTATIN) 03/20/2015 14 - Other: See Comments Comments: Myalgias Date Reviewed: 05/13/2019 Reviewed by: Cruz Sanchez - Fully Assessed Reason for Visit: Community Monitoring Outreach [Other] Cmt: Week 5 Prescriptions as of 09/22/2019 Sig: METOPROLOL SUCCINATE ER 100 M* TAKE ONE-HALF TABLET BY MOUTH* SIMVASTATIN 20 MG TABLET TAKE ONE TABLET BY MOUTH ADITI* JANTOVEN 2 MG TABLET take 1 tablet (2 mg) by mouth* LISINOPRIL 5 MG TABLET TAKE ONE TABLET BY MOUTH onc* RANITIDINE 150 MG TABLET TAKE ONE TABLET BY MOUTH EVER* COQ-10 ORAL Take 1 capsule by mouth once * METFORMIN 500 MG TABLET Take 1 tablet by mouth daily * FUROSEMIDE 20 MG TABLET TAKE ONE TABLET BY MOUTH ONCE* LANCETS Use as instructed BLOOD SUGAR DIAGNOSTIC STRIPS Use as instructed. 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] 05/19/2015 Reactive airway disease [J45.909] 11/14/2015 S/P coronary artery stent placement- 2006 [Z95*11/14/2015 Atherosclerosis of [place] coronary artery of na*11/14/2015 Asymptomatic cholelithiasis [K80.20] 12/18/2015 Hemarthrosis involving knee joint [M25.069] 02/09/2016 11/13/2016 History of knee replacement, total-bilateral [*02/09/2016 Presence of stent in coronary artery [Z95.5] 03/02/2016 OAB (overactive bladder) [N32.81] 12/11/2016 Incontinence of feces with fecal urgency [R15.9*12/11/2016 Chronic kidney disease, stage 2, mildly decreas* Tubular adenoma of colon-= 2014 last scope [D12* Adjustment disorder with depressed mood [F43.21]07/07/2017 Coronary arteriosclerosis [I25.10] Obesity, Class I, BMI 30-34.9 E66.9 [E66.9] 07/21/2017 Osteopenia of multiple sites [M85.89] 01/05/2018 Status post ablation of atrial fibrillation [Z9*01/05/2018 Chronic anticoagulation [Z79.01] 11/27/2018 Tendinitis of right rotator cuff [M75.81] 02/04/2019 S/P right rotator cuff repair [Z98.890] 02/04/2019 Rotator cuff tear arthropathy, right [M75.101, *02/04/2019 Encounter Status:Closed by MARYANNE GOMEZ on 09/22/19 [facility] PROGRESSon 09-22-2019 PROGRESS HNO ID: [id number] Author: Maryanne Gomez Service: ? Author Type: Strategic Communications Manager Type: Progress Notes Filed: 09/22/2019 10:34 AM Note Text: HIGH RISK CHRONIC DISEASE MONITORING - [facility] Provider Action/FYI: Patient doing well Contact made with patient: Yes Hi my name is Maryanne REGI Gomez and I am calling from the [facility] on behalf of your PCP. I'm calling to speak with Ezra Gonzalez. Patient identified by name and . Discussed care with patient. Because of the Covid-19 outbreak, I am calling to help make sure you are feeling well and that you have what you need to manage your well-being, since it is so important to stay home and take social distancing seriously to help protect your health at this time. If you have any concerns, we will come up with a plan on how to proceed. SYMPTOMS: I'd like to ask some questions about how you are managing your health. Would that be OK? Yes Do you have any new or worsening symptoms that you'd like to discuss with your doctor? No ACTION TAKEN: No action required - No symptoms reported; Continue outreach MEDICATIONS: Do you have any questions about taking your medication or which medications you should be on? No Do you need any medication refills at this time, including any of the medications you might take only when needed? No ACTION TAKEN: No action required SOCIAL: We would like to make sure you have what you need so that your basics needs are met - including your personal safety, food, housing and medications. Would you like to speak with a social work bioinformatics team member to help give you support for any of these needs? No It can be normal to feel anxious or down during a time like this. Would you like to talk to a mental health professional about how you have been feeling? No ACTION TAKEN: No action taken At present, these are our recommendations regarding the coronavirus (COVID-19) outbreak: ? Avoid public places as much as possible. ? Avoid close contact (within 6 feet) with others you don't live with, especially if they are sick. ? Stay home if you are sick. ? Wash your hands regularly for at least 20 seconds with soap and water. ? Wear a cloth mask in public places to help reduce community spread. ? Do not go to your Doctor's office unless instructed to do so. For any non-emergency symptoms, call your Doctor's office to get instructions on how to manage (we might recommend a telephone or virtual visit). For emergency symptoms, proceed to Emergency Department as usual but inform them of cough and fever symptoms ABBIE if present (or call on the way if possible). Thank you for taking the time to talk with me today. We want to work with you to ensure that we are keeping your medical conditions well-controlled and to keep you healthy and out of the doctor's office or hospital. Our team would like to stay connected with you to make sure you are feeling well. Our calls should take 10 minutes or less, and we'll plan to call you weekly for the next few weeks to months while this outbreak continues to help make sure you stay well. Remember in the meantime, if you have concerns in between our calls, please call your PCP's office right away. Thank you. (Enter next patient outreach date for the following week on the same day of the week as today in the Track Pt Outreach.) Maryanne Gomez MA 09/22/2019 10:33 AM [facility] 09-21-2019 [facility] Patient Outreach ([facility]) EZRA GONZALEZ ([id number]) 1935 F Date Time Provider Department 09/21/19 JO PEREZ [facility] During your visit today, we recorded the following information about you: Alicia Park LPN 09/21/2019 10:43 AM Signed HIGH RISK CHRONIC DISEASE MONITORING - [facility] Provider Action/FYI: Contact made with patient: No - Left 1st message - Hi my name is Alicia Park LPN and I am calling from the [facility] on behalf of your PCP, Jo Perez MD Because of the COVID-19 outbreak, we are calling to help make sure you are feeling well and have what you need to manage your well-being. You will receive another phone call within one business day. We hope you can take the time to speak with us. (Entered next patient outreach date for the following business day using the Track Pt Outreach. End outreach.) Outreach ended Allergies As of Date: 09/21/2019 Noted Allergy Reaction CODEINE 03/20/2015 16 - Unknown CRESTOR (ROSUVASTATIN) 03/20/2015 14 - Other: See Comments Comments: Myalgias DEMEROL (MEPERIDINE) 03/20/2015 8 - GI Upset LATEX 03/20/2015 2 - Rash LIPITOR (ATORVASTATIN) 03/20/2015 14 - Other: See Comments Comments: Myalgias Date Reviewed: 05/13/2019 Reviewed by: Cruz Sanchez - Fully Assessed Reason for Visit: community monitoring outreach [Other] Cmt: week 4 Reason For Visit History Recorded Prescriptions as of 09/21/2019 Sig: METOPROLOL SUCCINATE ER 100 M* TAKE ONE-HALF TABLET BY MOUTH* SIMVASTATIN 20 MG TABLET TAKE ONE TABLET BY MOUTH ADITI* JANTOVEN 2 MG TABLET take 1 tablet (2 mg) by mouth* LISINOPRIL 5 MG TABLET TAKE ONE TABLET BY MOUTH onc* RANITIDINE 150 MG TABLET TAKE ONE TABLET BY MOUTH EVER* COQ-10 ORAL Take 1 capsule by mouth once * METFORMIN 500 MG TABLET Take 1 tablet by mouth daily * FUROSEMIDE 20 MG TABLET TAKE ONE TABLET BY MOUTH ONCE* LANCETS Use as instructed BLOOD SUGAR DIAGNOSTIC STRIPS Use as instructed. 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] 05/19/2015 Reactive airway disease [J45.909] 11/14/2015 S/P coronary artery stent placement- 2006 [Z95*11/14/2015 Atherosclerosis of [place] coronary artery of na*11/14/2015 Asymptomatic cholelithiasis [K80.20] 12/18/2015 Hemarthrosis involving knee joint [M25.069] 02/09/2016 11/13/2016 History of knee replacement, total-bilateral [*02/09/2016 Presence of stent in coronary artery [Z95.5] 03/02/2016 OAB (overactive bladder) [N32.81] 12/11/2016 Incontinence of feces with fecal urgency [R15.9*12/11/2016 Chronic kidney disease, stage 2, mildly decreas* Tubular adenoma of colon-= 2014 last scope [D12* Adjustment disorder with depressed mood [F43.21]07/07/2017 Coronary arteriosclerosis [I25.10] Obesity, Class I, BMI 30-34.9 E66.9 [E66.9] 07/21/2017 Osteopenia of multiple sites [M85.89] 01/05/2018 Status post ablation of atrial fibrillation [Z9*01/05/2018 Chronic anticoagulation [Z79.01] 11/27/2018 Tendinitis of right rotator cuff [M75.81] 02/04/2019 S/P right rotator cuff repair [Z98.890] 02/04/2019 Rotator cuff tear arthropathy, right [M75.101, *02/04/2019 Encounter Status:Closed by ALICIA PARK on 09/21/19 [facility] PROGRESSon 09-21-2019 PROGRESS HNO ID: [id number] Author: Alicia Park Service: ? Author Type: LICENSED NURSE Type: Progress Notes Filed: 09/21/2019 10:43 AM Note Text: HIGH RISK CHRONIC DISEASE MONITORING - [facility] Provider Action/FYI: Contact made with patient: No - Left 1st message - Hi my name is Alicia Park LPN and I am calling from the [facility] on behalf of your PCP, Jo Perez MD Because of the COVID-19 outbreak, we are calling to help make sure you are feeling well and have what you need to manage your well-being. You will receive another phone call within one business day. We hope you can take the time to speak with us. (Entered next patient outreach date for the following day using the Track Pt Outreach. End outreach.) Outreach ended Normal [facility] CNPMari 09-02-2019 [facility] ([place]) LISAEZRA ([id number]) 1935 F Date Time Provider Department 09/02/19 ESTEFANIA CEVALLOS During your visit today, we recorded the following information about you: Estefania Cevallos PharmD 09/02/2019 11:16 AM Signed Please check with patient to see if she has been to the lab recently for an INR. We have not received an INR since June. Angela Collins LPN, LPN 09/02/2019 11:20 AM Signed Called and spoke with pt and she stated she is at lab at this moment getting INR drawn LEE Spann PharmD 09/03/2019 10:17 AM Signed Referred by Dr. Chavarria Indication: Atrial fibrillation. CHADS-VASc= 8 (CAD s/p PCI and stent, DM, HTN, age >75, female, TIA (amaurosis fugax). She has a history of hemarthrosis in 2016 when INR was 14 secondary to interaction with warfarin and fluconazole. INR goal: 2 to 3 Duration: Indefinite Bridging assessment and details: CHADS-VASc= 8 (CAD s/p PCI and stent, DM, HTN, age >75, female, TIA (amaurosis fugax). She has a history of hemarthrosis in 2016 when INR was 14 secondary to interaction with warfarin and fluconazole. Date consult agreement signed by physician: 12/26/16 Patient has been notified verbally and/or in writing of the terms of the pharmacist-physician consult agreement for the anticoagulation clinic. Date: 12/30/16 +++Patient gets lab draw at [facility] in [phone]+++ PT INR Date Value Ref Range Status 09/02/2019 2.2 Final Warfarin Dose: 2mg Friday; 3mg all other days of the week. Description CONTINUE 2mg Friday, Friday, and Friday; 3mg all other days of the week. Recheck 4 weeks. Patient has been on current warfarin dose for quite some time. Last INR was therapeutic 4 weeks ago. INR remains stable today. Will continue this dose. Discussed with patient on the phone who read back instructions and verbalized understanding. Patient will have next INR drawn at [facility] in [place] next month. Order placed. Estefania Cevallos PharmD Allergies As of Date: 09/02/2019 Noted Allergy Reaction CODEINE 03/20/2015 16 - Unknown CRESTOR (ROSUVASTATIN) 03/20/2015 14 - Other: See Comments Comments: Myalgias DEMEROL (MEPERIDINE) 03/20/2015 8 - GI Upset LATEX 03/20/2015 2 - Rash LIPITOR (ATORVASTATIN) 03/20/2015 14 - Other: See Comments Comments: Myalgias Date Reviewed: 05/13/2019 Reviewed by: Cruz Sanchez - Fully Assessed Reason for Visit: Coumadin/INR [1207] Visit Diagnosis:Atrial fibrillation, unspecified type (HCC) [I48.91] Order(s):PROTHROMBIN TIME/PT [SQPT] Order #: [id number] PROTHROMBIN TIME/PT [SQPT] Order #: [id number] STANDING Prescriptions as of 09/02/2019 Sig: METOPROLOL SUCCINATE ER 100 M* TAKE ONE-HALF TABLET BY MOUTH* SIMVASTATIN 20 MG TABLET TAKE ONE TABLET BY MOUTH ADITI* JANTOVEN 2 MG TABLET take 1 tablet (2 mg) by mouth* LISINOPRIL 5 MG TABLET TAKE ONE TABLET BY MOUTH onc* RANITIDINE 150 MG TABLET TAKE ONE TABLET BY MOUTH EVER* COQ-10 ORAL Take 1 capsule by mouth once * METFORMIN 500 MG TABLET Take 1 tablet by mouth daily * FUROSEMIDE 20 MG TABLET TAKE ONE TABLET BY MOUTH ONCE* LANCETS Use as instructed BLOOD SUGAR DIAGNOSTIC STRIPS Use as instructed. 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] 05/19/2015 Reactive airway disease [J45.909] 11/14/2015 S/P coronary artery stent placement- 2006 [Z95*11/14/2015 Atherosclerosis of [place] coronary artery of na*11/14/2015 Asymptomatic cholelithiasis [K80.20] 12/18/2015 Hemarthrosis involving knee joint [M25.069] 02/09/2016 11/13/2016 History of knee replacement, total-bilateral [*02/09/2016 Presence of stent in coronary artery [Z95.5] 03/02/2016 OAB (overactive bladder) [N32.81] 12/11/2016 Incontinence of feces with fecal urgency [R15.9*12/11/2016 Chronic kidney disease, stage 2, mildly decreas* Tubular adenoma of colon-= 2014 last scope [D12* Adjustment disorder with depressed mood [F43.21]07/07/2017 Coronary arteriosclerosis [I25.10] Obesity, Class I, BMI 30-34.9 E66.9 [E66.9] 07/21/2017 Osteopenia of multiple sites [M85.89] 01/05/2018 Status post ablation of atrial fibrillation [Z9*01/05/2018 Chronic anticoagulation [Z79.01] 11/27/2018 Tendinitis of right rotator cuff [M75.81] 02/04/2019 S/P right rotator cuff repair [Z98.890] 02/04/2019 Rotator cuff tear arthropathy, right [M75.101, *02/04/2019 Encounter Status:Closed by BHAKTI (PHARMACIST)ESTEFANIA on 09/03/19 [facility] CNPTOUTREACHon 08-12-2019 CNPTOUTREACH Patient Outreach ([facility]) LISAEZRA J ([id number]) 1935 F Date Time Provider Department 08/12/19 MARYANNE GOMEZ) [facility] During your visit today, we recorded the following information about you: Maryanne Gomez MA 08/12/2019 9:39 AM Signed HIGH RISK CHRONIC DISEASE MONITORING - [facility] Provider Action/FYI: Left 2nd message, will add patient to schedule for a month Contact made with patient: No, Left 2nd message - Hi my name is Maryanne Gomez MA and [facility] of your [facility]CP, Jo Perez MD Because of the COVID-19 outbreak, we are calling to help make sure you are feeling well and have what you need to manage your well-being. You will receive another phone call within one month. We hope you can take the time to speak with us. (Entered next patient outreach date for one month (on a business day) from today's date using the Track Pt Outreach. End outreach.) Outreach ended Maryanne Gomez MA 08/12/2019 9:38 AM Allergies As of Date: 08/12/2019 Noted Allergy Reaction CODEINE 03/20/2015 16 - Unknown CRESTOR (ROSUVASTATIN) 03/20/2015 14 - Other: See Comments Comments: Myalgias DEMEROL (MEPERIDINE) 03/20/2015 8 - GI Upset LATEX 03/20/2015 2 - Rash LIPITOR (ATORVASTATIN) 03/20/2015 14 - Other: See Comments Comments: Myalgias Date Reviewed: 05/13/2019 Reviewed by: Cruz Sanchez - Fully Assessed Reason for Visit: Community Monitoring Outreach [Other] Cmt: Week 3,2nd call (out reach not completed, added to schedule for a month) Prescriptions as of 08/12/2019 Sig: METOPROLOL SUCCINATE ER 100 M* TAKE ONE-HALF TABLET BY MOUTH* SIMVASTATIN 20 MG TABLET TAKE ONE TABLET BY MOUTH ADITI* JANTOVEN 2 MG TABLET take 1 tablet (2 mg) by mouth* LISINOPRIL 5 MG TABLET TAKE ONE TABLET BY MOUTH onc* RANITIDINE 150 MG TABLET TAKE ONE TABLET BY MOUTH EVER* COQ-10 ORAL Take 1 capsule by mouth once * METFORMIN 500 MG TABLET Take 1 tablet by mouth daily * FUROSEMIDE 20 MG TABLET TAKE ONE TABLET BY MOUTH ONCE* LANCETS Use as instructed BLOOD SUGAR DIAGNOSTIC STRIPS Use as instructed. 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] 05/19/2015 Reactive airway disease [J45.909] 11/14/2015 S/P coronary artery stent placement- 2006 [Z95*11/14/2015 Atherosclerosis of [place] coronary artery of na*11/14/2015 Asymptomatic cholelithiasis [K80.20] 12/18/2015 Hemarthrosis involving knee joint [M25.069] 02/09/2016 11/13/2016 History of knee replacement, total-bilateral [*02/09/2016 Presence of stent in coronary artery [Z95.5] 03/02/2016 OAB (overactive bladder) [N32.81] 12/11/2016 Incontinence of feces with fecal urgency [R15.9*12/11/2016 Chronic kidney disease, stage 2, mildly decreas* Tubular adenoma of colon-= 2014 last scope [D12* Adjustment disorder with depressed mood [F43.21]07/07/2017 Coronary arteriosclerosis [I25.10] Obesity, Class I, BMI 30-34.9 E66.9 [E66.9] 07/21/2017 Osteopenia of multiple sites [M85.89] 01/05/2018 Status post ablation of atrial fibrillation [Z9*01/05/2018 Chronic anticoagulation [Z79.01] 11/27/2018 Tendinitis of right rotator cuff [M75.81] 02/04/2019 S/P right rotator cuff repair [Z98.890] 02/04/2019 Rotator cuff tear arthropathy, right [M75.101, *02/04/2019 Encounter Status:Closed by MARYANNE GOMEZ on 08/12/19 [facility] PROGRESSon 08-12-2019 PROGRESS HNO ID: [id number] Author: Maryanne Gomez Service: ? Author Type: Strategic Communications Manager Type: Progress Notes Filed: 08/12/2019 9:39 AM Note Text: HIGH RISK CHRONIC DISEASE MONITORING - [facility] Provider Action/FYI: Left 2nd message, will add patient to schedule for a month Contact made with patient: No, Left 2nd message - Hi my name is Maryanne Gomez MA and I am calling from the [facility] on behalf of your PCP, Jo Perez MD Because of the COVID-19 outbreak, we are calling to help make sure you are feeling well and have what you need to manage your well-being. You will receive another phone call within one month. We hope you can take the time to speak with us. (Entered next patient outreach date for one month (on a business day) from today's date using the Track Pt Outreach. End outreach.) Outreach ended Maryanne Gomez MA 08/12/2019 9:38 AM [facility] CNPTOUTREACHochastity 08-11-2019 CNPTOUTREACH Patient Outreach ([facility]) EZRA GONZALEZ ([id number]) 1935 F Date Time Provider Department 08/11/19 MARYANNE GOMEZ) [facility] During your visit today, we recorded the following information about you: Maryanne Gomez MA 08/11/2019 10:02 AM Signed HIGH RISK CHRONIC DISEASE MONITORING - [facility] Provider Action/FYI: Left message, will add to schedule for tomorrow Contact made with patient: No - Left 1st message - Hi my name is Maryanne Gomez MA and I am calling from the [facility] on behalf of your PCP, Jo Perez MD Because of the COVID-19 outbreak, we are calling to help make sure you are feeling well and have what you need to manage your well-being. You will receive another phone call within one business day. We hope you can take the time to speak with us. (Entered next patient outreach date for the following business day using the Track Pt Outreach. End outreach.) Outreach ended Maryanne Gomez MA 08/11/2019 10:01 AM Allergies As of Date: 08/11/2019 Noted Allergy Reaction CODEINE 03/20/2015 16 - Unknown CRESTOR (ROSUVASTATIN) 03/20/2015 14 - Other: See Comments Comments: Myalgias DEMEROL (MEPERIDINE) 03/20/2015 8 - GI Upset LATEX 03/20/2015 2 - Rash LIPITOR (ATORVASTATIN) 03/20/2015 14 - Other: See Comments Comments: Myalgias Date Reviewed: 05/13/2019 Reviewed by: Cruz Sanchez - Fully Assessed Reason for Visit: Community Monitoring Outreach [Other] Cmt: Week 3, 1st call Prescriptions as of 08/11/2019 Sig: METOPROLOL SUCCINATE ER 100 M* TAKE ONE-HALF TABLET BY MOUTH* SIMVASTATIN 20 MG TABLET TAKE ONE TABLET BY MOUTH ADITI* JANTOVEN 2 MG TABLET take 1 tablet (2 mg) by mouth* LISINOPRIL 5 MG TABLET TAKE ONE TABLET BY MOUTH onc* RANITIDINE 150 MG TABLET TAKE ONE TABLET BY MOUTH EVER* COQ-10 ORAL Take 1 capsule by mouth once * METFORMIN 500 MG TABLET Take 1 tablet by mouth daily * FUROSEMIDE 20 MG TABLET TAKE ONE TABLET BY MOUTH ONCE* LANCETS Use as instructed BLOOD SUGAR DIAGNOSTIC STRIPS Use as instructed. 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] 05/19/2015 Reactive airway disease [J45.909] 11/14/2015 S/P coronary artery stent placement- 2006 [Z95*11/14/2015 Atherosclerosis of [place] coronary artery of na*11/14/2015 Asymptomatic cholelithiasis [K80.20] 12/18/2015 Hemarthrosis involving knee joint [M25.069] 02/09/2016 11/13/2016 History of knee replacement, total-bilateral [*02/09/2016 Presence of stent in coronary artery [Z95.5] 03/02/2016 OAB (overactive bladder) [N32.81] 12/11/2016 Incontinence of feces with fecal urgency [R15.9*12/11/2016 Chronic kidney disease, stage 2, mildly decreas* Tubular adenoma of colon-= 2014 last scope [D12* Adjustment disorder with depressed mood [F43.21]07/07/2017 Coronary arteriosclerosis [I25.10] Obesity, Class I, BMI 30-34.9 E66.9 [E66.9] 07/21/2017 Osteopenia of multiple sites [M85.89] 01/05/2018 Status post ablation of atrial fibrillation [Z9*01/05/2018 Chronic anticoagulation [Z79.01] 11/27/2018 Tendinitis of right rotator cuff [M75.81] 02/04/2019 S/P right rotator cuff repair [Z98.890] 02/04/2019 Rotator cuff tear arthropathy, right [M75.101, *02/04/2019 Encounter Status:Closed by MARYANNE GOMEZ on 08/11/19 [facility] PROGRESSon 08-11-2019 PROGRESS HNO ID: [id number] Author: Maryanne Gomez Service: ? Author Type: Strategic Communications Manager Type: Progress Notes Filed: 08/11/2019 10:02 AM Note Text: HIGH RISK CHRONIC DISEASE MONITORING - [facility] Provider Action/FYI: Left message, will add to schedule for tomorrow Contact made with patient: No - Left 1st message - Hi my name is Maryanne Gomez MA and I am calling from the [facility] on behalf of your PCP, Jo Perez MD Because of the COVID-19 outbreak, we are calling to help make sure you are feeling well and have what you need to manage your well-being. You will receive another phone call within one business day. We hope you can take the time to speak with us. (Entered next patient outreach date for the following day using the Track Pt Outreach. End outreach.) Outreach ended Marynane Gomez MA 08/11/2019 10:01 AM Normal [facility] OBSOLETEon 08-05-2019 OBSOLETE Refill (AGCARDPOB) EZRA GONZALEZ ([id number]) 1935 F Date Time Provider Department 08/05/19 MICHAEL LUO AGCARDPOB During your visit today, we recorded the following information about you: Lynette Orourke 08/05/2019 8:31 AM Signed Patient's request for medication is as follows: Refused Prescriptions Disp Refills metoprolol succinate ER (TOPROL XL) 100 mg [Pharmacy Med Name: Metoprolol Succinate ER Oral Tablet Extended Release 24 Hour 100 MG] 45 tablet 0 Sig: TAKE ONE-HALF TABLET BY MOUTH DAILY SHAHEEN: No Refused By: LYNETTE OROURKE Reason for Refusal: Patient has requested refill too soon Reason for Refusal Comment: Refilled 08/03/19. Prescription(s) as above. Please process accordingly. Lynette (Lubrication Technician) Earnest Allergies As of Date: 08/05/2019 Noted Allergy Reaction CODEINE 03/20/2015 16 - Unknown CRESTOR (ROSUVASTATIN) 03/20/2015 14 - Other: See Comments Comments: Myalgias DEMEROL (MEPERIDINE) 03/20/2015 8 - GI Upset LATEX 03/20/2015 2 - Rash LIPITOR (ATORVASTATIN) 03/20/2015 14 - Other: See Comments Comments: Myalgias Date Reviewed: 05/13/2019 Reviewed by: Cruz Sanchez - Fully Assessed Reason for Visit: Refill Request [94] Prescriptions as of 08/05/2019 Sig: METOPROLOL SUCCINATE ER 100 M* TAKE ONE-HALF TABLET BY MOUTH* SIMVASTATIN 20 MG TABLET TAKE ONE TABLET BY MOUTH ADITI* JANTOVEN 2 MG TABLET take 1 tablet (2 mg) by mouth* LISINOPRIL 5 MG TABLET TAKE ONE TABLET BY MOUTH onc* RANITIDINE 150 MG TABLET TAKE ONE TABLET BY MOUTH EVER* COQ-10 ORAL Take 1 capsule by mouth once * METFORMIN 500 MG TABLET Take 1 tablet by mouth daily * FUROSEMIDE 20 MG TABLET TAKE ONE TABLET BY MOUTH ONCE* LANCETS Use as instructed BLOOD SUGAR DIAGNOSTIC STRIPS Use as instructed. 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] 05/19/2015 Reactive airway disease [J45.909] 11/14/2015 S/P coronary artery stent placement- 2006 [Z95*11/14/2015 Atherosclerosis of [place] coronary artery of na*11/14/2015 Asymptomatic cholelithiasis [K80.20] 12/18/2015 Hemarthrosis involving knee joint [M25.069] 02/09/2016 11/13/2016 History of knee replacement, total-bilateral [*02/09/2016 Presence of stent in coronary artery [Z95.5] 03/02/2016 OAB (overactive bladder) [N32.81] 12/11/2016 Incontinence of feces with fecal urgency [R15.9*12/11/2016 Chronic kidney disease, stage 2, mildly decreas* Tubular adenoma of colon-= 2014 last scope [D12* Adjustment disorder with depressed mood [F43.21]07/07/2017 Coronary arteriosclerosis [I25.10] Obesity, Class I, BMI 30-34.9 E66.9 [E66.9] 07/21/2017 Osteopenia of multiple sites [M85.89] 01/05/2018 Status post ablation of atrial fibrillation [Z9*01/05/2018 Chronic anticoagulation [Z79.01] 11/27/2018 Tendinitis of right rotator cuff [M75.81] 02/04/2019 S/P right rotator cuff repair [Z98.890] 02/04/2019 Rotator cuff tear arthropathy, right [M75.101, *02/04/2019 Encounter Status:Closed by LYNETTE OROURKE on 08/05/19 [facility] CNPTOUTREACHochastity 08-04-2019 CNPTOUTREA Patient Outreach ([facility]) EZRA GONZALEZ ([id number]) 1935 F Date Time Provider Department 08/04/19 MARYANNE GOMEZ) [facility] During your visit today, we recorded the following information about you: Maryanne Gomez MA 08/04/2019 11:03 AM Signed HIGH RISK CHRONIC DISEASE MONITORING - [facility] Provider Action/FYI: Patient has no questions or concerns at this time Contact made with patient: Yes Hi my name is Maryanne Gomez MA and I am calling from the [facility] on behalf of your PCP. I'm calling to speak with Ezra Gonzalez. Patient identified by name and . Discussed care with patient. Because of the Covid-19 outbreak, I am calling to help make sure you are feeling well and that you have what you need to manage your well-being, since it is so important to stay home and take social distancing seriously to help protect your health at this time. If you have any concerns, we will come up with a plan on how to proceed. SYMPTOMS: I'd like to ask some questions about how you are managing your health. Would that be OK? Yes Do you have any new or worsening symptoms that you'd like to discuss with your doctor? No ACTION TAKEN: No action required - No symptoms reported; Continue outreach MEDICATIONS: Do you have any questions about taking your medication or which medications you should be on? No Do you need any medication refills at this time, including any of the medications you might take only when needed? No ACTION TAKEN: No action required SOCIAL: We would like to make sure you have what you need so that your basics needs are met - including your personal safety, food, housing and medications. Would you like to speak with a social work bioinformatics team member to help give you support for any of these needs? No It can be normal to feel anxious or down during a time like this. Would you like to talk to a mental health professional about how you have been feeling? No ACTION TAKEN: No action taken At present, these are our recommendations regarding the coronavirus (COVID-19) outbreak: ? Avoid public places as much as possible. ? Avoid close contact (within 6 feet) with others you don't live with, especially if they are sick. ? Stay home if you are sick. ? Wash your hands regularly for at least 20 seconds with soap and water. ? Wear a cloth mask in public places to help reduce community spread. ? Do not go to your Doctor's office unless instructed to do so. For any non-emergency symptoms, call your Doctor's office to get instructions on how to manage (we might recommend a telephone or virtual visit). For emergency symptoms, proceed to Emergency Department as usual but inform them of cough and fever symptoms ABBIE if present (or call on the way if possible). Thank you for taking the time to talk with me today. We want to work with you to ensure that we are keeping your medical conditions well-controlled and to keep you healthy and out of the doctor's office or hospital. Our team would like to stay connected with you to make sure you are feeling well. Our calls should take 10 minutes or less, and we'll plan to call you weekly for the next few weeks to months while this outbreak continues to help make sure you stay well. Remember in the meantime, if you have concerns in between our calls, please call your PCP's office right away. Thank you. (Enter next patient outreach date for the following week on the same day of the week as today in the Track Pt Outreach.) Maryanne Gomez MA 08/04/2019 11:03 AM Allergies As of Date: 08/04/2019 Noted Allergy Reaction CODEINE 03/20/2015 16 - Unknown CRESTOR (ROSUVASTATIN) 03/20/2015 14 - Other: See Comments Comments: Myalgias DEMEROL (MEPERIDINE) 03/20/2015 8 - GI Upset LATEX 03/20/2015 2 - Rash LIPITOR (ATORVASTATIN) 03/20/2015 14 - Other: See Comments Comments: Myalgias Date Reviewed: 05/13/2019 Reviewed by: Cruz Sanchez - Fully Assessed Reason for Visit: Community Monitoring Outreach [Other] Cmt: Week 2 Prescriptions as of 08/04/2019 Sig: METOPROLOL SUCCINATE ER 100 M* TAKE ONE-HALF TABLET BY MOUTH* SIMVASTATIN 20 MG TABLET TAKE ONE TABLET BY MOUTH ADITI* JANTOVEN 2 MG TABLET take 1 tablet (2 mg) by mouth* LISINOPRIL 5 MG TABLET TAKE ONE TABLET BY MOUTH onc* RANITIDINE 150 MG TABLET TAKE ONE TABLET BY MOUTH EVER* COQ-10 ORAL Take 1 capsule by mouth once * METFORMIN 500 MG TABLET Take 1 tablet by mouth daily * FUROSEMIDE 20 MG TABLET TAKE ONE TABLET BY MOUTH ONCE* LANCETS Use as instructed BLOOD SUGAR DIAGNOSTIC STRIPS Use as instructed. 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] 05/19/2015 Reactive airway disease [J45.909] 11/14/2015 S/P coronary artery stent placement- 2006 [Z95*11/14/2015 Atherosclerosis of [place] coronary artery of na*11/14/2015 Asymptomatic cholelithiasis [K80.20] 12/18/2015 Hemarthrosis involving knee joint [M25.069] 02/09/2016 11/13/2016 History of knee replacement, total-bilateral [*02/09/2016 Presence of stent in coronary artery [Z95.5] 03/02/2016 OAB (overactive bladder) [N32.81] 12/11/2016 Incontinence of feces with fecal urgency [R15.9*12/11/2016 Chronic kidney disease, stage 2, mildly decreas* Tubular adenoma of colon-= 2015 last scope [D12* Adjustment disorder with depressed mood [F43.21]07/07/2017 Coronary arteriosclerosis [I25.10] Obesity, Class I, BMI 30-34.9 E66.9 [E66.9] 07/21/2017 Osteopenia of multiple sites [M85.89] 01/05/2018 Status post ablation of atrial fibrillation [Z9*01/05/2018 Chronic anticoagulation [Z79.01] 11/27/2018 Tendinitis of right rotator cuff [M75.81] 02/04/2019 S/P right rotator cuff repair [Z98.890] 02/04/2019 Rotator cuff tear arthropathy, right [M75.101, *02/04/2019 Encounter Status:Closed by MARYANNE GOMEZ on 08/04/19 [facility] PROGRESSon 08-04-2019 PROGRESS HNO ID: [id number] Author: Maryanne Gomez Service: ? Author Type: Strategic Communications Manager Type: Progress Notes Filed: 08/04/2019 11:03 AM Note Text: HIGH RISK CHRONIC DISEASE MONITORING - [facility] Provider Action/FYI: Patient has no questions or concerns at this time Contact made with patient: Yes Hi my name is Maryanne Gomez MA and I am calling from the [facility] on behalf of your PCP. I'm calling to speak with Ezra Gonzalez. Patient identified by name and . Discussed care with patient. Because of the Covid-19 outbreak, I am calling to help make sure you are feeling well and that you have what you need to manage your well-being, since it is so important to stay home and take social distancing seriously to help protect your health at this time. If you have any concerns, we will come up with a plan on how to proceed. SYMPTOMS: I'd like to ask some questions about how you are managing your health. Would that be OK? Yes Do you have any new or worsening symptoms that you'd like to discuss with your doctor? No ACTION TAKEN: No action required - No symptoms reported; Continue outreach MEDICATIONS: Do you have any questions about taking your medication or which medications you should be on? No Do you need any medication refills at this time, including any of the medications you might take only when needed? No ACTION TAKEN: No action required SOCIAL: We would like to make sure you have what you need so that your basics needs are met - including your personal safety, food, housing and medications. Would you like to speak with a social work bioinformatics team member to help give you support for any of these needs? No It can be normal to feel anxious or down during a time like this. Would you like to talk to a mental health professional about how you have been feeling? No ACTION TAKEN: No action taken At present, these are our recommendations regarding the coronavirus (COVID-19) outbreak: ? Avoid public places as much as possible. ? Avoid close contact (within 6 feet) with others you don't live with, especially if they are sick. ? Stay home if you are sick. ? Wash your hands regularly for at least 20 seconds with soap and water. ? Wear a cloth mask in public places to help reduce community spread. ? Do not go to your Doctor's office unless instructed to do so. For any non-emergency symptoms, call your Doctor's office to get instructions on how to manage (we might recommend a telephone or virtual visit). For emergency symptoms, proceed to Emergency Department as usual but inform them of cough and fever symptoms ABBIE if present (or call on the way if possible). Thank you for taking the time to talk with me today. We want to work with you to ensure that we are keeping your medical conditions well-controlled and to keep you healthy and out of the doctor's office or hospital. Our team would like to stay connected with you to make sure you are feeling well. Our calls should take 10 minutes or less, and we'll plan to call you weekly for the next few weeks to months while this outbreak continues to help make sure you stay well. Remember in the meantime, if you have concerns in between our calls, please call your PCP's office right away. Thank you. (Enter next patient outreach date for the following week on the same day of the week as today in the Track Pt Outreach.) Maryanne Gomez MA 08/04/2019 11:03 AM Normal [facility] OBSOLETEon 08-03-2019 OBSOLETE Refill (AGCARDPOB) EZRA GONZALEZ ([id number]) 1935 F Date Time Provider Department 08/03/19 MICHAEL LUO AGCARDPOB During your visit today, we recorded the following information about you: Kelli Mills LPN 08/03/2019 8:02 AM Signed Patient's pharmacy requesting new refill. Pending Prescriptions Disp Refills METOPROLOL SUCCINATE ER 100 MG TABLET,EXTENDED RELEASE 24 HR 45 tablet 0 Sig: TAKE ONE-HALF TABLET BY MOUTH DAILY SHAHEEN: Yes She had seen Dr. Chavarria on 11-27-2018 and is on the recall list for an October of 2019 office visit. Kelli Mills LPN Allergies As of Date: 08/03/2019 Noted Allergy Reaction CODEINE 03/20/2015 16 - Unknown CRESTOR (ROSUVASTATIN) 03/20/2015 14 - Other: See Comments Comments: Myalgias DEMEROL (MEPERIDINE) 03/20/2015 8 - GI Upset LATEX 03/20/2015 2 - Rash LIPITOR (ATORVASTATIN) 03/20/2015 14 - Other: See Comments Comments: Myalgias Date Reviewed: 05/13/2019 Reviewed by: Cruz Sanchez - Fully Assessed Reason for Visit: Refill Request [94] Order(s):metoprolol succinate ER (TOPROL XL) 100 mgTAKE ONE-HALF TABLET BY MOUTH DAILYDisp: 45 tabletRfl: 0 Prescriptions as of 08/03/2019 Sig: METOPROLOL SUCCINATE ER 100 M* TAKE ONE-HALF TABLET BY MOUTH* SIMVASTATIN 20 MG TABLET TAKE ONE TABLET BY MOUTH ADITI* JANTOVEN 2 MG TABLET take 1 tablet (2 mg) by mouth* LISINOPRIL 5 MG TABLET TAKE ONE TABLET BY MOUTH onc* RANITIDINE 150 MG TABLET TAKE ONE TABLET BY MOUTH EVER* COQ-10 ORAL Take 1 capsule by mouth once * METFORMIN 500 MG TABLET Take 1 tablet by mouth daily * FUROSEMIDE 20 MG TABLET TAKE ONE TABLET BY MOUTH ONCE* LANCETS Use as instructed BLOOD SUGAR DIAGNOSTIC STRIPS Use as instructed. 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] 05/19/2015 Reactive airway disease [J45.909] 11/14/2015 S/P coronary artery stent placement- 2006 [Z95*11/14/2015 Atherosclerosis of [place] coronary artery of na*11/14/2015 Asymptomatic cholelithiasis [K80.20] 12/18/2015 Hemarthrosis involving knee joint [M25.069] 02/09/2016 11/13/2016 History of knee replacement, total-bilateral [*02/09/2016 Presence of stent in coronary artery [Z95.5] 03/02/2016 OAB (overactive bladder) [N32.81] 12/11/2016 Incontinence of feces with fecal urgency [R15.9*12/11/2016 Chronic kidney disease, stage 2, mildly decreas* Tubular adenoma of colon-= 2014 last scope [D12* Adjustment disorder with depressed mood [F43.21]07/07/2017 Coronary arteriosclerosis [I25.10] Obesity, Class I, BMI 30-34.9 E66.9 [E66.9] 07/21/2017 Osteopenia of multiple sites [M85.89] 01/05/2018 Status post ablation of atrial fibrillation [Z9*01/05/2018 Chronic anticoagulation [Z79.01] 11/27/2018 Tendinitis of right rotator cuff [M75.81] 02/04/2019 S/P right rotator cuff repair [Z98.890] 02/04/2019 Rotator cuff tear arthropathy, right [M75.101, *02/04/2019 Prescriptions ordered this encounter Disp Refills Start End METOPROLOL SUCCINATE ER 100 MG TABLE* 45 t* 0 08/03/2019 Sig: TAKE ONE-HALF TABLET BY MOUTH DAILY Medications Discontinued During This Encounter metoprolol succinate ER (TOPROL XL) * 45 t* 3 08/05/2018 08/03/2019 Cmt: PLEASE HAVE PATIENT TO CALL IN AND SCHEDULE AN APPT Route: ORAL Sig: Take 0.5 tablets by mouth once daily. Disc: Reason for discontinue is not on file. Encounter Status:Closed by KATYA WELLS CNP on 08/03/19 [facility] 07-28-2019 CNPTOUTREA Patient Outreach ([facility]) EZRA GONZALEZ ([id number]) 1935 F Date Time Provider Department 07/28/19 MARYANNE GOMEZ) [facility] During your visit today, we recorded the following information about you: Maryanne Gomez REGI 07/28/2019 3:18 PM Signed HIGH RISK CHRONIC DISEASE MONITORING - [facility] Provider Action/FYI: Patient wants to know if you still want her to take her Metformin. She takes it but then wonders to her self, does she really need it. Patient wants you to know she has been taking her bp at home and everything has been fine and blood sugars as well. She states that she did have one episode of afib that lasted about 30 minutes a month ago which she thinks was from stress due to her moving but after that she has been fine and vitals have been stable and she has been feeling good. Contact made with patient: Yes Hi my name is Maryanne GomezREGI and I am calling from the [facility] on behalf of your PCP. I'm calling to speak with Ezra Gonzalez. Patient identified by name and . Discussed care with patient. Because of the Covid-19 outbreak, I am calling to help make sure you are feeling well and that you have what you need to manage your well-being, since it is so important to stay home and take social distancing seriously to help protect your health at this time. If you have any concerns, we will come up with a plan on how to proceed. SYMPTOMS: I'd like to ask some questions about how you are managing your health. Would that be OK? Yes Do you have any new or worsening symptoms that you'd like to discuss with your doctor? No ACTION TAKEN: No action required - No symptoms reported; Continue outreach MEDICATIONS: Do you have any questions about taking your medication or which medications you should be on? Yes Patient wants to know if you still want her to take her Metformin. She takes it but then wonders to her self, does she really need it. Do you need any medication refills at this time, including any of the medications you might take only when needed? No ACTION TAKEN: No action required SOCIAL: We would like to make sure you have what you need so that your basics needs are met - including your personal safety, food, housing and medications. Would you like to speak with a social work bioinformatics team member to help give you support for any of these needs? No It can be normal to feel anxious or down during a time like this. Would you like to talk to a mental health professional about how you have been feeling? No ACTION TAKEN: No action taken At present, these are our recommendations regarding the coronavirus (COVID-19) outbreak: ? Avoid public places as much as possible. ? Avoid close contact (within 6 feet) with others you don't live with, especially if they are sick. ? Stay home if you are sick. ? Wash your hands regularly for at least 20 seconds with soap and water. ? Wear a cloth mask in public places to help reduce community spread. ? Do not go to your Doctor's office unless instructed to do so. For any non-emergency symptoms, call your Doctor's office to get instructions on how to manage (we might recommend a telephone or virtual visit). For emergency symptoms, proceed to Emergency Department as usual but inform them of cough and fever symptoms ABBIE if present (or call on the way if possible). Thank you for taking the time to talk with me today. We want to work with you to ensure that we are keeping your medical conditions well-controlled and to keep you healthy and out of the doctor's office or hospital. Our team would like to stay connected with you to make sure you are feeling well. Our calls should take 10 minutes or less, and we'll plan to call you weekly for the next few weeks to months while this outbreak continues to help make sure you stay well. Remember in the meantime, if you have concerns in between our calls, please call your PCP's office right away. Thank you. 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 In fact at her last visit she was still due for a diabetic eye exam which she hopefully should get done in the next couple of months And we can reschedule her diabetic appointment virtually and I would like for her to get labs done prior to her visit Maryanne Gomez MA 07/28/2019 3:18 PM Signed Spoke to patient. She states she did have her diabetic eye exam done either in March or May, she will call the place to have them fax over all the information. She also states that since she is doing so well she does not wish to schedule an appointment at this time and she would like to wait until Covid-19 clears up. I did explain to her that it would be virtual but she stated again that she dosent find it necessary. Maryanne Gomez MA 07/28/2019 3:05 PM Allergies As of Date: 07/28/2019 Noted Allergy Reaction CODEINE 03/20/2015 16 - Unknown CRESTOR (ROSUVASTATIN) 03/20/2015 14 - Other: See Comments Comments: Myalgias DEMEROL (MEPERIDINE) 03/20/2015 8 - GI Upset LATEX 03/20/2015 2 - Rash LIPITOR (ATORVASTATIN) 03/20/2015 14 - Other: See Comments Comments: Myalgias Date Reviewed: 05/13/2019 Reviewed by: Cruz Sanchez - Fully Assessed Reason for Visit: Community Monitoring Outreach [Other] Cmt: Week 1 Primary Visit Diagnosis:Type 2 diabetes mellitus without complication, without long-term current use of insulin (HCC) [E11.9] Order(s):HGB A1C [VXFEO1F] Order #: [id number] FUTURE LIPID PANEL BASIC [SQLIPB] Order #: [id number] FUTURE COMP METABOLIC PANEL [SQCMP] Order #: [id number] FUTURE ALBUMIN QUANT 24H UR [SQUALBQ] Order #: [id number] FUTURE Prescriptions as of 07/28/2019 Sig: SIMVASTATIN 20 MG TABLET TAKE ONE TABLET BY MOUTH ADITI* JANTOVEN 2 MG TABLET take 1 tablet (2 mg) by mouth* LISINOPRIL 5 MG TABLET TAKE ONE TABLET BY MOUTH onc* RANITIDINE 150 MG TABLET TAKE ONE TABLET BY MOUTH EVER* COQ-10 ORAL Take 1 capsule by mouth once * METFORMIN 500 MG TABLET Take 1 tablet by mouth daily * FUROSEMIDE 20 MG TABLET TAKE ONE TABLET BY MOUTH ONCE* LANCETS Use as instructed METOPROLOL SUCCINATE ER 100 M* Take 0.5 tablets by mouth onc* BLOOD SUGAR DIAGNOSTIC STRIPS Use as instructed. 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] 05/19/2015 Reactive airway disease [J45.909] 11/14/2015 S/P coronary artery stent placement- 2006 [Z95*11/14/2015 Atherosclerosis of [place] coronary artery of na*11/14/2015 Asymptomatic cholelithiasis [K80.20] 12/18/2015 Hemarthrosis involving knee joint [M25.069] 02/09/2016 11/13/2016 History of knee replacement, total-bilateral [*02/09/2016 Presence of stent in coronary artery [Z95.5] 03/02/2016 OAB (overactive bladder) [N32.81] 12/11/2016 Incontinence of feces with fecal urgency [R15.9*12/11/2016 Chronic kidney disease, stage 2, mildly decreas* Tubular adenoma of colon-= 2014 last scope [D12* Adjustment disorder with depressed mood [F43.21]07/07/2017 Coronary arteriosclerosis [I25.10] Obesity, Class I, BMI 30-34.9 E66.9 [E66.9] 07/21/2017 Osteopenia of multiple sites [M85.89] 01/05/2018 Status post ablation of atrial fibrillation [Z9*01/05/2018 Chronic anticoagulation [Z79.01] 11/27/2018 Tendinitis of right rotator cuff [M75.81] 02/04/2019 S/P right rotator cuff repair [Z98.890] 02/04/2019 Rotator cuff tear arthropathy, right [M75.101, *02/04/2019 Encounter Status:Closed by JO PEREZ on 07/28/19 [facility] OBSOLETEon 07-28-2019 OBSOLETE Refill ([facility]ARD[facility]) LISAEZRA Alis ([id number]) 1935 F Date Time Provider Department 07/28/19 RICKEY CHAVARRIA AGCARDHWG During your visit today, we recorded the following information about you: Kelli Mills LPN 07/28/2019 9:48 AM Signed Patient's pharmacy requesting new refill. Pending Prescriptions Disp Refills SIMVASTATIN 20 MG TABLET 90 tablet 3 Sig: TAKE ONE TABLET BY MOUTH DAILY AT BEDTIME SHAHEEN: Yes She had seen Dr. Chavarria on 11-27-2018 and is on the recall list for an October of [address] Chavarria. Kelli Mills LPN Allergies As of Date: 07/28/2019 Noted Allergy Reaction CODEINE 03/20/2015 16 - Unknown CRESTOR (ROSUVASTATIN) 03/20/2015 14 - Other: See Comments Comments: Myalgias DEMEROL (MEPERIDINE) 03/20/2015 8 - GI Upset LATEX 03/20/2015 2 - Rash LIPITOR (ATORVASTATIN) 03/20/2015 14 - Other: See Comments Comments: Myalgias Date Reviewed: 05/13/2019 Reviewed by: Cruz Sanchez - Fully Assessed Reason for Visit: Refill Request [94] Order(s):simvastatin (ZOCOR) 20 mg tabletTAKE ONE TABLET BY MOUTH DAILY AT BEDTIMEDisp: 90 tabletRfl: 3 Prescriptions as of 07/28/2019 Sig: SIMVASTATIN 20 MG TABLET TAKE ONE TABLET BY MOUTH ADITI* JANTOVEN 2 MG TABLET take 1 tablet (2 mg) by mouth* LISINOPRIL 5 MG TABLET TAKE ONE TABLET BY MOUTH onc* RANITIDINE 150 MG TABLET TAKE ONE TABLET BY MOUTH EVER* COQ-10 ORAL Take 1 capsule by mouth once * METFORMIN 500 MG TABLET Take 1 tablet by mouth daily * FUROSEMIDE 20 MG TABLET TAKE ONE TABLET BY MOUTH ONCE* LANCETS Use as instructed METOPROLOL SUCCINATE ER 100 M* Take 0.5 tablets by mouth onc* BLOOD SUGAR DIAGNOSTIC STRIPS Use as instructed. 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] 05/19/2015 Reactive airway disease [J45.909] 11/14/2015 S/P coronary artery stent placement- 2006 [Z95*11/14/2015 Atherosclerosis of [place] coronary artery of na*11/14/2015 Asymptomatic cholelithiasis [K80.20] 12/18/2015 Hemarthrosis involving knee joint [M25.069] 02/09/2016 11/13/2016 History of knee replacement, total-bilateral [*02/09/2016 Presence of stent in coronary artery [Z95.5] 03/02/2016 OAB (overactive bladder) [N32.81] 12/11/2016 Incontinence of feces with fecal urgency [R15.9*12/11/2016 Chronic kidney disease, stage 2, mildly decreas* Tubular adenoma of colon-= 2014 last scope [D12* Adjustment disorder with depressed mood [F43.21]07/07/2017 Coronary arteriosclerosis [I25.10] Obesity, Class I, BMI 30-34.9 E66.9 [E66.9] 07/21/2017 Osteopenia of multiple sites [M85.89] 01/05/2018 Status post ablation of atrial fibrillation [Z9*01/05/2018 Chronic anticoagulation [Z79.01] 11/27/2018 Tendinitis of right rotator cuff [M75.81] 02/04/2019 S/P right rotator cuff repair [Z98.890] 02/04/2019 Rotator cuff tear arthropathy, right [M75.101, *02/04/2019 Prescriptions ordered this encounter Disp Refills Start End SIMVASTATIN 20 MG TABLET 90 t* 3 07/28/2019 Sig: TAKE ONE TABLET BY MOUTH DAILY AT BEDTIME Medications Discontinued During This Encounter simvastatin (ZOCOR) 20 mg tablet 90 t* 3 10/19/2018 07/28/2019 Sig: TAKE ONE TABLET BY MOUTH DAILY AT BEDTIME Disc: Reason for discontinue is not on file. Encounter Status:Closed by ARCELIA LOCKETT CNP on 07/28/19 [facility] PROGRESSon 07-28-2019 PROGRESS HNO ID: [id number] Author: Maryanne Gomez Service: ? Author Type: Strategic Communications Manager Type: Progress Notes Filed: 07/28/2019 3:18 PM Note Text: Spoke to patient. She states she did have her diabetic eye exam done either in March or May, she will call the place to have them fax over all the information. She also states that since she is doing so well she does not wish to schedule an appointment at this time and she would like to wait until Covid-19 clears up. I did explain to her that it would be virtual but she stated again that she dosent find it necessary. Maryanne Gomez MA 07/28/2019 3:05 PM [facility] PROGRESS HNO ID: [id number] Author: Jo Perez Service: ? 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 In fact at her last visit she was still due for a diabetic eye exam which she hopefully should get done in the next couple of months And we can reschedule her diabetic appointment virtually and I would like for her to get labs done prior to her visit [facility] PROGRESS HNO ID: [id number] Author: Maryanne Gomez Service: ? Author Type: Strategic Communications Manager Type: Progress Notes Filed: 07/28/2019 3:18 PM Note Text: HIGH RISK CHRONIC DISEASE MONITORING - [facility] Provider Action/FYI: Patient wants to know if you still want her to take her Metformin. She takes it but then wonders to her self, does she really need it. Patient wants you to know she has been taking her bp at home and everything has been fine and blood sugars as well. She states that she did have one episode of afib that lasted about 30 minutes a month ago which she thinks was from stress due to her moving but after that she has been fine and vitals have been stable and she has been feeling good. Contact made with patient: Yes Hi my name is Maryanne Gomez MA and I am calling from the [facility] on behalf of your PCP. I'm calling to speak with Ezra Gonzalez. Patient identified by name and . Discussed care with patient. Because of the Covid-19 outbreak, I am calling to help make sure you are feeling well and that you have what you need to manage your well-being, since it is so important to stay home and take social distancing seriously to help protect your health at this time. If you have any concerns, we will come up with a plan on how to proceed. SYMPTOMS: I'd like to ask some questions about how you are managing your health. Would that be OK? Yes Do you have any new or worsening symptoms that you'd like to discuss with your doctor? No ACTION TAKEN: No action required - No symptoms reported; Continue outreach MEDICATIONS: Do you have any questions about taking your medication or which medications you should be on? Yes Patient wants to know if you still want her to take her Metformin. She takes it but then wonders to her self, does she really need it. Do you need any medication refills at this time, including any of the medications you might take only when needed? No ACTION TAKEN: No action required SOCIAL: We would like to make sure you have what you need so that your basics needs are met - including your personal safety, food, housing and medications. Would you like to speak with a social work bioinformatics team member to help give you support for any of these needs? No It can be normal to feel anxious or down during a time like this. Would you like to talk to a mental health professional about how you have been feeling? No ACTION TAKEN: No action taken At present, these are our recommendations regarding the coronavirus (COVID-19) outbreak: ? Avoid public places as much as possible. ? Avoid close contact (within 6 feet) with others you don't live with, especially if they are sick. ? Stay home if you are sick. ? Wash your hands regularly for at least 20 seconds with soap and water. ? Wear a cloth mask in public places to help reduce community spread. ? Do not go to your Doctor's office unless instructed to do so. For any non-emergency symptoms, call your Doctor's office to get instructions on how to manage (we might recommend a telephone or virtual visit). For emergency symptoms, proceed to Emergency Department as usual but inform them of cough and fever symptoms ABBIE if present (or call on the way if possible). Thank you for taking the time to talk with me today. We want to work with you to ensure that we are keeping your medical conditions well-controlled and to keep you healthy and out of the doctor's office or hospital. Our team would like to stay connected with you to make sure you are feeling well. Our calls should take 10 minutes or less, and we'll plan to call you weekly for the next few weeks to months while this outbreak continues to help make sure you stay well. Remember in the meantime, if you have concerns in between our calls, please call your PCP's office right away. Thank you. (Enter next patient outreach date for the following week on the same day of the week as today in the Track Pt Outreach.) Maryanne Gomez MA 07/28/2019 2:21 PM Normal [facility] OBSOLETEon 07-14-2019 OBSOLETE Refill ([facility]) EZRA GONZALEZ ([id number]) 1935 F Date Time Provider Department 07/14/19 JO PEREZ [facility] During your visit today, we recorded the following information about you: Anne Marie Morrison 07/14/2019 9:33 AM Signed Pharmacy faxed requesting the following refill. Pending Prescriptions Disp Refills RANITIDINE 150 MG TABLET 90 tablet 0 Sig: TAKE ONE TABLET BY MOUTH EVERY DAY SHAHEEN: Yes LISINOPRIL 5 MG TABLET 90 tablet 0 Sig: TAKE ONE TABLET BY MOUTH once DAILY SHAHEEN: Yes Last refill: 07/05/2019 Patient last appointment: 06/10/2019 Patient next appointment: Visit date not found Patient Phone numbers: [phone] (home) Request is for script(s) to be escript to pharmacy. Anne Marie Perez MD 07/14/2019 12:38 PM Signed She was switched to prilosec as pepcid on back order Allergies As of Date: 07/14/2019 Noted Allergy Reaction CODEINE 03/20/2015 16 - Unknown CRESTOR (ROSUVASTATIN) 03/20/2015 14 - Other: See Comments Comments: Myalgias DEMEROL (MEPERIDINE) 03/20/2015 8 - GI Upset LATEX 03/20/2015 2 - Rash LIPITOR (ATORVASTATIN) 03/20/2015 14 - Other: See Comments Comments: Myalgias Date Reviewed: 05/13/2019 Reviewed by: Cruz Sanchez - Fully Assessed Reason for Visit: Refill Request [94] Order(s):lisinopril (ZESTRIL, PRINIVIL) 5 mg tabletTAKE ONE TABLET BY MOUTH once DAILYDisp: 90 tabletRfl: 0 Prescriptions as of 07/14/2019 Sig: LISINOPRIL 5 MG TABLET TAKE ONE TABLET BY MOUTH onc* JANTOVEN 2 MG TABLET take 1 tablet (2 mg) by mouth* RANITIDINE 150 MG TABLET TAKE ONE TABLET BY MOUTH EVER* COQ-10 ORAL Take 1 capsule by mouth once * METFORMIN 500 MG TABLET Take 1 tablet by mouth daily * FUROSEMIDE 20 MG TABLET TAKE ONE TABLET BY MOUTH ONCE* X JANTOVEN 2 MG TABLET TAKE 2 MG BY MOUTH ON FRIDAY,* SIMVASTATIN 20 MG TABLET TAKE ONE TABLET BY MOUTH ADITI* LANCETS Use as instructed METOPROLOL SUCCINATE ER 100 M* Take 0.5 tablets by mouth onc* BLOOD SUGAR DIAGNOSTIC STRIPS Use as instructed. 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] 05/19/2015 Reactive airway disease [J45.909] 11/14/2015 S/P coronary artery stent placement- 2006 [Z95*11/14/2015 Atherosclerosis of [place] coronary artery of na*11/14/2015 Asymptomatic cholelithiasis [K80.20] 12/18/2015 Hemarthrosis involving knee joint [M25.069] 02/09/2016 11/13/2016 History of knee replacement, total-bilateral [*02/09/2016 Presence of stent in coronary artery [Z95.5] 03/02/2016 OAB (overactive bladder) [N32.81] 12/11/2016 Incontinence of feces with fecal urgency [R15.9*12/11/2016 Chronic kidney disease, stage 2, mildly decreas* Tubular adenoma of colon-= 2014 last scope [D12* Adjustment disorder with depressed mood [F43.21]07/07/2017 Coronary arteriosclerosis [I25.10] Obesity, Class I, BMI 30-34.9 E66.9 [E66.9] 07/21/2017 Osteopenia of multiple sites [M85.89] 01/05/2018 Status post ablation of atrial fibrillation [Z9*01/05/2018 Chronic anticoagulation [Z79.01] 11/27/2018 Tendinitis of right rotator cuff [M75.81] 02/04/2019 S/P right rotator cuff repair [Z98.890] 02/04/2019 Rotator cuff tear arthropathy, right [M75.101, *02/04/2019 Prescriptions ordered this encounter Disp Refills Start End LISINOPRIL 5 MG TABLET 90 t* 0 07/14/2019 Sig: TAKE ONE TABLET BY MOUTH once DAILY Medications Discontinued During This Encounter lisinopril (ZESTRIL, PRINIVIL) 5 mg * 90 t* 0 07/05/2019 07/14/2019 Sig: TAKE ONE TABLET BY MOUTH once DAILY Disc: Reason for discontinue is not on file. Encounter Status:Closed by JO PEREZ on 07/14/19 [facility] OBSOLETE Refill ([facility]CARD[facility]) EZRA GONZALEZ ([id number]) 1935 F Date Time Provider Department 07/14/19 RICKEY CHAVARRIA AGCARDPOB During your visit today, we recorded the following information about you: Kelli Mills LPN 07/14/2019 9:38 AM Signed Patient's pharmacy requesting new refill. Pending Prescriptions Disp Refills JANTOVEN 2 MG TABLET 108 tablet 3 Sig: take 1 tablet (2 mg) by mouth on friday, friday and friday. take 1 and 1/2 tablets (3 mg) on all other days SHAHEEN: Yes This is her current dose according to [facility] on 07-12-2019. She is on the recall list for an October of [address] Chavarria. Kelli Mills LPN Allergies As of Date: 07/14/2019 Noted Allergy Reaction CODEINE 03/20/2015 16 - Unknown CRESTOR (ROSUVASTATIN) 03/20/2015 14 - Other: See Comments Comments: Myalgias DEMEROL (MEPERIDINE) 03/20/2015 8 - GI Upset LATEX 03/20/2015 2 - Rash LIPITOR (ATORVASTATIN) 03/20/2015 14 - Other: See Comments Comments: Myalgias Date Reviewed: 05/13/2019 Reviewed by: Cruz Sanchez - Fully Assessed Reason for Visit: Refill Request [94] Order(s):JANTOVEN 2 mg tablettake 1 tablet (2 mg) by mouth on friday, friday and friday. take 1 and 1/2 tablets (3 mg) on all other daysDisp: 108 tabletRfl: 3 Prescriptions as of 07/14/2019 Sig: JANTOVEN 2 MG TABLET take 1 tablet (2 mg) by mouth* LISINOPRIL 5 MG TABLET TAKE ONE TABLET BY MOUTH onc* RANITIDINE 150 MG TABLET TAKE ONE TABLET BY MOUTH EVER* COQ-10 ORAL Take 1 capsule by mouth once * METFORMIN 500 MG TABLET Take 1 tablet by mouth daily * FUROSEMIDE 20 MG TABLET TAKE ONE TABLET BY MOUTH ONCE* SIMVASTATIN 20 MG TABLET TAKE ONE TABLET BY MOUTH ADITI* LANCETS Use as instructed METOPROLOL SUCCINATE ER 100 M* Take 0.5 tablets by mouth onc* BLOOD SUGAR DIAGNOSTIC STRIPS Use as instructed. 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] 05/19/2015 Reactive airway disease [J45.909] 11/14/2015 S/P coronary artery stent placement- 2006 [Z95*11/14/2015 Atherosclerosis of [place] coronary artery of na*11/14/2015 Asymptomatic cholelithiasis [K80.20] 12/18/2015 Hemarthrosis involving knee joint [M25.069] 02/09/2016 11/13/2016 History of knee replacement, total-bilateral [*02/09/2016 Presence of stent in coronary artery [Z95.5] 03/02/2016 OAB (overactive bladder) [N32.81] 12/11/2016 Incontinence of feces with fecal urgency [R15.9*12/11/2016 Chronic kidney disease, stage 2, mildly decreas* Tubular adenoma of colon-= 2014 last scope [D12* Adjustment disorder with depressed mood [F43.21]07/07/2017 Coronary arteriosclerosis [I25.10] Obesity, Class I, BMI 30-34.9 E66.9 [E66.9] 07/21/2017 Osteopenia of multiple sites [M85.89] 01/05/2018 Status post ablation of atrial fibrillation [Z9*01/05/2018 Chronic anticoagulation [Z79.01] 11/27/2018 Tendinitis of right rotator cuff [M75.81] 02/04/2019 S/P right rotator cuff repair [Z98.890] 02/04/2019 Rotator cuff tear arthropathy, right [M75.101, *02/04/2019 Prescriptions ordered this encounter Disp Refills Start End JANTOVEN 2 MG TABLET 108 * 3 07/14/2019 Sig: take 1 tablet (2 mg) by mouth on friday, friday and friday. take 1 and 1/2 tablets (3 mg) on all other days Medications Discontinued During This Encounter JANTOVEN 2 mg tablet 108 * 1 01/21/2019 07/14/2019 Sig: TAKE 2 MG BY MOUTH ON FRIDAY, FRIDAY AND FRIDAY AND TAKE 3 MG ON ALL OTHER DAYS. Disc: Reason for discontinue is not on file. Encounter Status:Closed by RICKEY CHAVARRIA MD on 07/14/19 [facility] 07-12-2019 [facility] Telephone ([employer]) EZRA GONZALEZ ([id number]) 1935 F Date Time Provider Department 07/12/19 [facility] During your visit today, we recorded the following information about you: Estefania Cevallos, PharmD 07/12/2019 9:12 AM Signed Referred by Dr. Chavarria Indication: Atrial fibrillation. CHADS-VASc= 8 (CAD s/p PCI and stent, DM, HTN, age >75, female, TIA (amaurosis fugax). She has a history of hemarthrosis in 2016 when INR was 14 secondary to interaction with warfarin and fluconazole. INR goal: 2 to 3 Duration: Indefinite Bridging assessment and details: CHADS-VASc= 8 (CAD s/p PCI and stent, DM, HTN, age >75, female, TIA (amaurosis fugax). She has a history of hemarthrosis in 2016 when INR was 14 secondary to interaction with warfarin and fluconazole. Date consult agreement signed by physician: 12/26/16 Patient has been notified verbally and/or in writing of the terms of the pharmacist-physician consult agreement for the anticoagulation clinic. Date: 12/30/16 +++Patient gets lab draw at [facility] in [place] [phone]+++ PT INR Date Value Ref Range Status 07/06/2019 2.5 Final Warfarin Dose: 2mg Friday; 3mg all other days of the week. Description CONTINUE 2mg Friday, Friday, and Friday; 3mg all other days of the week. Recheck 4 weeks. Patient has been on current warfarin dose for quite some time. Last INR was therapeutic 4 weeks ago. INR remains stable today. Will continue this dose. Discussed with patient on the phone who read back instructions and verbalized understanding. Estefania Cevallos, JpD Allergies As of Date: 07/12/2019 Noted Allergy Reaction CODEINE 03/20/2015 16 - Unknown CRESTOR (ROSUVASTATIN) 03/20/2015 14 - Other: See Comments Comments: Myalgias DEMEROL (MEPERIDINE) 03/20/2015 8 - GI Upset LATEX 03/20/2015 2 - Rash LIPITOR (ATORVASTATIN) 03/20/2015 14 - Other: See Comments Comments: Myalgias Date Reviewed: 05/13/2019 Reviewed by: Cruz Sanchez - Fully Assessed Reason for Visit: Coumadin/INR [1207] Visit Diagnosis:Atrial fibrillation, unspecified type (HCC) [I48.91] Order(s):PROTHROMBIN TIME/PT [SQPT] Order #: [id number] Prescriptions as of 07/12/2019 Sig: LISINOPRIL 5 MG TABLET TAKE ONE TABLET BY MOUTH onc* RANITIDINE 150 MG TABLET TAKE ONE TABLET BY MOUTH EVER* COQ-10 ORAL Take 1 capsule by mouth once * METFORMIN 500 MG TABLET Take 1 tablet by mouth daily * JANTOVEN 2 MG TABLET TAKE 2 MG BY MOUTH ON FRIDAY,* FUROSEMIDE 20 MG TABLET TAKE ONE TABLET BY MOUTH ONCE* SIMVASTATIN 20 MG TABLET TAKE ONE TABLET BY MOUTH ADITI* LANCETS Use as instructed METOPROLOL SUCCINATE ER 100 M* Take 0.5 tablets by mouth onc* BLOOD SUGAR DIAGNOSTIC STRIPS Use as instructed. 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] 05/19/2015 Reactive airway disease [J45.909] 11/14/2015 S/P coronary artery stent placement- 2006 [Z95*11/14/2015 Atherosclerosis of [place] coronary artery of na*11/14/2015 Asymptomatic cholelithiasis [K80.20] 12/18/2015 Hemarthrosis involving knee joint [M25.069] 02/09/2016 11/13/2016 History of knee replacement, total-bilateral [*02/09/2016 Presence of stent in coronary artery [Z95.5] 03/02/2016 OAB (overactive bladder) [N32.81] 12/11/2016 Incontinence of feces with fecal urgency [R15.9*12/11/2016 Chronic kidney disease, stage 2, mildly decreas* Tubular adenoma of colon-= 2014 last scope [D12* Adjustment disorder with depressed mood [F43.21]07/07/2017 Coronary arteriosclerosis [I25.10] Obesity, Class I, BMI 30-34.9 E66.9 [E66.9] 07/21/2017 Osteopenia of multiple sites [M85.89] 01/05/2018 Status post ablation of atrial fibrillation [Z9*01/05/2018 Chronic anticoagulation [Z79.01] 11/27/2018 Tendinitis of right rotator cuff [M75.81] 02/04/2019 S/P right rotator cuff repair [Z98.890] 02/04/2019 Rotator cuff tear arthropathy, right [M75.101, *02/04/2019 Encounter Status:Closed by BHAKTI (PHARMACIST)ESTEFANIA on 07/12/19 [facility] OBSOLETEon 07-05-2019 [facility] EZRA GONZALEZ ([id number]) 1935 F Date Time Provider Department 07/05/19 JO PEREZ [facility] During your visit today, we recorded the following information about you: Robert Diaz CMA 07/05/2019 1:02 PM Signed Patient called requesting the following refill. Pending Prescriptions Disp Refills LISINOPRIL 5 MG TABLET 90 tablet 0 Sig: TAKE ONE TABLET BY MOUTH once DAILY SHAHEEN: Yes RANITIDINE 150 MG TABLET 90 tablet 0 Sig: TAKE ONE TABLET BY MOUTH EVERY DAY SHAHEEN: Yes Last refill: 03/18/2019 Patient last appointment: 06/10/2019 Patient next appointment: 07/28/2019 Patient Phone numbers: [phone] (home) Request is for script(s) to be escript to pharmacy. MYRIAM Lovelace 07/13/2019 11:23 AM Signed Pharmacy called to say Ranitidine was recalled and Pepcid is on backorder. Asked what we want to do as an alternative. Spoke with Dr. Perez and she said Omeprazole 20 mg once a day. Asked the pharmacy to either call the office or the patient once Pepcid is no longer on backorder per Dr. Perez. Bernarda Rogers 07/13/2019 11:23 AM Allergies As of Date: 07/05/2019 Noted Allergy Reaction CODEINE 03/20/2015 16 - Unknown CRESTOR (ROSUVASTATIN) 03/20/2015 14 - Other: See Comments Comments: Myalgias DEMEROL (MEPERIDINE) 03/20/2015 8 - GI Upset LATEX 03/20/2015 2 - Rash LIPITOR (ATORVASTATIN) 03/20/2015 14 - Other: See Comments Comments: Myalgias Date Reviewed: 05/13/2019 Reviewed by: Cruz Sanchez - Fully Assessed Reason for Visit: Refill Request [94] Refill Request [94] Reason For Visit History Recorded Order(s):lisinopril (ZESTRIL, PRINIVIL) 5 mg tabletTAKE ONE TABLET BY MOUTH once DAILYDisp: 90 tabletRfl: 0 ranitidine (ZANTAC) 150 mg tabletTAKE ONE TABLET BY MOUTH EVERY DAYDisp: 90 tabletRfl: 0 Prescriptions as of 07/05/2019 Sig: LISINOPRIL 5 MG TABLET TAKE ONE TABLET BY MOUTH onc* RANITIDINE 150 MG TABLET TAKE ONE TABLET BY MOUTH EVER* COQ-10 ORAL Take 1 capsule by mouth once * METFORMIN 500 MG TABLET Take 1 tablet by mouth daily * JANTOVEN 2 MG TABLET TAKE 2 MG BY MOUTH ON FRIDAY,* FUROSEMIDE 20 MG TABLET TAKE ONE TABLET BY MOUTH ONCE* SIMVASTATIN 20 MG TABLET TAKE ONE TABLET BY MOUTH ADITI* LANCETS Use as instructed METOPROLOL SUCCINATE ER 100 M* Take 0.5 tablets by mouth onc* BLOOD SUGAR DIAGNOSTIC STRIPS Use as instructed. 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 [Z96.642] 05/19/2015 Reactive airway disease [J45.909] 11/14/2015 S/P coronary artery stent placement- 2006 [Z95*11/14/2015 Atherosclerosis of [place] coronary artery of na*11/14/2015 Asymptomatic cholelithiasis [K80.20] 12/18/2015 Hemarthrosis involving knee joint [M25.069] 02/09/2016 11/13/2016 History of knee replacement, total-bilateral [*02/09/2016 Presence of stent in coronary artery [Z95.5] 03/02/2016 OAB (overactive bladder) [N32.81] 12/11/2016 Incontinence of feces with fecal urgency [R15.9*12/11/2016 Chronic kidney disease, stage 2, mildly decreas* Tubular adenoma of colon-= 2014 last scope [D12* Adjustment disorder with depressed mood [F43.21]07/07/2017 Coronary arteriosclerosis [I25.10] Obesity, Class I, BMI 30-34.9 E66.9 [E66.9] 07/21/2017 Osteopenia of multiple sites [M85.89] 01/05/2018 Status post ablation of atrial fibrillation [Z9*01/05/2018 Chronic anticoagulation [Z79.01] 11/27/2018 Tendinitis of right rotator cuff [M75.81] 02/04/2019 S/P right rotator cuff repair [Z98.890] 02/04/2019 Rotator cuff tear arthropathy, right [M75.101, *02/04/2019 Prescriptions ordered this encounter Disp Refills Start End LISINOPRIL 5 MG TABLET 90 t* 0 07/05/2019 Sig: TAKE ONE TABLET BY MOUTH once DAILY RANITIDINE 150 MG TABLET 90 t* 0 07/05/2019 Sig: TAKE ONE TABLET BY MOUTH EVERY DAY Medications Discontinued During This Encounter lisinopril (ZESTRIL, PRINIVIL) 5 mg * 90 t* 0 03/18/2019 07/05/2019 Sig: TAKE ONE TABLET BY MOUTH once DAILY Disc: Reason for discontinue is not on file. ranitidine (ZANTAC) 150 mg tablet 90 t* 0 07/01/2019 07/05/2019 Route: ORAL Sig: Take 1 tablet by mouth once daily. Disc: Reason for discontinue is not on file. Encounter Status:Closed by PATITO WILSON CNP on 07/05/19 [facility] OBSOLETEon 07-01-2019 OBSOLETE Refill ([facility]) LISAEZRA Alis ([id number]) 1935 F Date Time Provider Department 07/01/19 JO PEREZ [facility] During your visit today, we recorded the following information about you: Robert Diaz CMA 07/01/2019 9:20 AM Signed Patient called requesting the following refill. Pending Prescriptions Disp Refills RANITIDINE 150 MG TABLET 90 tablet 0 Sig: Take 1 tablet by mouth once daily. SHAHEEN: No Last refill: 03/18/2019 Patient last appointment: 06/10/2019 Patient next appointment: 07/28/2019 Patient Phone numbers: [phone] (home) Request is for script(s) to be escript to pharmacy. Robert Diaz CMA Allergies As of Date: 07/01/2019 Noted Allergy Reaction CODEINE 03/20/2015 16 - Unknown CRESTOR (ROSUVASTATIN) 03/20/2015 14 - Other: See Comments Comments: Myalgias DEMEROL (MEPERIDINE) 03/20/2015 8 - GI Upset LATEX 03/20/2015 2 - Rash LIPITOR (ATORVASTATIN) 03/20/2015 14 - Other: See Comments Comments: Myalgias Date Reviewed: 05/13/2019 Reviewed by: Cruz Sanchez - Fully Assessed Reason for Visit: Refill Request [94] Order(s):ranitidine (ZANTAC) 150 mg tabletTake 1 tablet by mouth once daily.Disp: 90 tabletRfl: 0 Prescriptions as of 07/01/2019 Sig: RANITIDINE 150 MG TABLET Take 1 tablet by mouth once d* COQ-10 ORAL Take 1 capsule by mouth once * METFORMIN 500 MG TABLET Take 1 tablet by mouth daily * LISINOPRIL 5 MG TABLET TAKE ONE TABLET BY MOUTH once* JANTOVEN 2 MG TABLET TAKE 2 MG BY MOUTH ON FRIDAY,* FUROSEMIDE 20 MG TABLET TAKE ONE TABLET BY MOUTH ONCE* SIMVASTATIN 20 MG TABLET TAKE ONE TABLET BY MOUTH ADITI* LANCETS Use as instructed METOPROLOL SUCCINATE ER 100 M* Take 0.5 tablets by mouth onc* BLOOD SUGAR DIAGNOSTIC STRIPS Use as instructed. 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] Essential hypertension [I10] Mixed hyperlipidemia [E78.2] Osteoarthritis [M19.90] Vitamin D deficiency [E55.9] Atrial fibrillation (HCC)- ablation 2011 [I48.* On anticoagulant therapy [Z79.01] Spinal stenosis [M48.00] Peripheral venous insufficiency [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 [Z96.642] 05/19/2015 Reactive airway disease [J45.909] 11/14/2015 S/P coronary artery stent placement- 2006 [Z95*11/14/2015 Atherosclerosis of [place] coronary artery of na*11/14/2015 Asymptomatic cholelithiasis [K80.20] 12/18/2015 Hemarthrosis involving knee joint [M25.069] 02/09/2016 11/13/2016 History of knee replacement, total-bilateral [*02/09/2016 Presence of stent in coronary artery [Z95.5] 03/02/2016 OAB (overactive bladder) [N32.81] 12/11/2016 Incontinence of feces with fecal urgency [R15.9*12/11/2016 Chronic kidney disease, stage 2, mildly decreas* Tubular adenoma of colon-= 2014 last scope [D12* Adjustment disorder with depressed mood [F43.21]07/07/2017 Coronary arteriosclerosis [I25.10] Obesity, Class I, BMI 30-34.9 E66.9 [E66.9] 07/21/2017 Osteopenia of multiple sites [M85.89] 01/05/2018 Status post ablation of atrial fibrillation [Z9*01/05/2018 Chronic anticoagulation [Z79.01] 11/27/2018 Tendinitis of right rotator cuff [M75.81] 02/04/2019 S/P right rotator cuff repair [Z98.890] 02/04/2019 Rotator cuff tear arthropathy, right [M75.101, *02/04/2019 Prescriptions ordered this encounter Disp Refills Start End RANITIDINE 150 MG TABLET 90 t* 0 07/01/2019 Route: ORAL Sig: Take 1 tablet by mouth once daily. Medications Discontinued During This Encounter ranitidine (ZANTAC) 150 mg tablet 90 t* 0 03/18/2019 07/01/2019 Sig: TAKE ONE TABLET BY MOUTH EVERY DAY Disc: Reason for discontinue is not on file. Encounter Status:Closed by JO PEREZ on 07/01/19 [facility] EZRA GON[facility]ALE[facility] ([id number]) 1935 F Date Time Provider Department 06/10/19 [facility] During your visit today, we recorded the following information about you: Swathi Cruz LPN, LPN 06/10/2019 12:42 PM Signed SHARED MEDICAL APPOINTMENT (SMA) INVITE DATE: 07/22/2019 TIME: 10am-12pm PHYSICIAN: Rashida TOPIC/DIAGNOSIS: DM2 IS PATIENT INTERESTED IN ATTENDING? NO, declined. COMMENTS/OTHER INFO: Patient stated she is not interested at this time. She stated she is very busy trying to sell her house and now is not good timing. Pt. Was unsure if she would be interested in future SMA but is ok if we call and ask at that time. Swathi Cruz LPN 06/10/2019 12:36 PM Allergies As of Date: 06/10/2019 Noted Allergy Reaction CODEINE 03/20/2015 16 - Unknown CRESTOR (ROSUVASTATIN) 03/20/2015 14 - Other: See Comments Comments: Myalgias DEMEROL (MEPERIDINE) 03/20/2015 8 - GI Upset LATEX 03/20/2015 2 - Rash LIPITOR (ATORVASTATIN) 03/20/2015 14 - Other: See Comments Comments: Myalgias Date Reviewed: 05/13/2019 Reviewed by: Cruz Sanchez - Fully Assessed Reason for Visit: Shared Medical Appointment [Other] Cmt: invite for 07/22/19- Jose Enrique/ DM2 (DECLINED) Reason For Visit History Recorded Prescriptions as of 06/10/2019 Sig: COQ-10 ORAL Take 1 capsule by mouth once * METFORMIN 500 MG TABLET Take 1 tablet by mouth daily * RANITIDINE 150 MG TABLET TAKE ONE TABLET BY MOUTH EVER* LISINOPRIL 5 MG TABLET TAKE ONE TABLET BY MOUTH once* JANTOVEN 2 MG TABLET TAKE 2 MG BY MOUTH ON FRIDAY,* FUROSEMIDE 20 MG TABLET TAKE ONE TABLET BY MOUTH ONCE* SIMVASTATIN 20 MG TABLET TAKE ONE TABLET BY MOUTH ADITI* LANCETS Use as instructed METOPROLOL SUCCINATE ER 100 M* Take 0.5 tablets by mouth onc* BLOOD SUGAR DIAGNOSTIC STRIPS Use as instructed. 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] Essential hypertension [I10] Mixed hyperlipidemia [E78.2] Osteoarthritis [M19.90] Vitamin D deficiency [E55.9] Atrial fibrillation (HCC)- ablation 2011 [I48.* On anticoagulant therapy [Z79.01] Spinal stenosis [M48.00] Peripheral venous insufficiency [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 [Z96.642] 05/19/2015 Reactive airway disease [J45.909] 11/14/2015 S/P coronary artery stent placement- 2006 [Z95*11/14/2015 Atherosclerosis of [place] coronary artery of na*11/14/2015 Asymptomatic cholelithiasis [K80.20] 12/18/2015 Hemarthrosis involving knee joint [M25.069] 02/09/2016 11/13/2016 History of knee replacement, total-bilateral [*02/09/2016 Presence of stent in coronary artery [Z95.5] 03/02/2016 OAB (overactive bladder) [N32.81] 12/11/2016 Incontinence of feces with fecal urgency [R15.9*12/11/2016 Chronic kidney disease, stage 2, mildly decreas* Tubular adenoma of colon-= 2015 last scope [D12* Adjustment disorder with depressed mood [F43.21]07/07/2017 Coronary arteriosclerosis [I25.10] Obesity, Class I, BMI 30-34.9 E66.9 [E66.9] 07/21/2017 Osteopenia of multiple sites [M85.89] 01/05/2018 Status post ablation of atrial fibrillation [Z9*01/05/2018 Chronic anticoagulation [Z79.01] 11/27/2018 Tendinitis of right rotator cuff [M75.81] 02/04/2019 S/P right rotator cuff repair [Z98.890] 02/04/2019 Rotator cuff tear arthropathy, right [M75.101, *02/04/2019 Encounter Status:Closed by SWATHI CRUZ LPN on 06/10/19 [facility] 06-07-2019 [place] Telephone ([place]) EZRA GONZALEZ ([id number]) 1935 F Date Time Provider Department 06/07/19 ESTEFANIA CEVALLOS During your visit today, we recorded the following information about you: Estefania Cevallos, PharmMaria Teresa 06/07/2019 2:52 PM Signed Referred by Dr. Chavarria Indication: Atrial fibrillation. CHADS-VASc= 8 (CAD s/p PCI and stent, DM, HTN, age >75, female, TIA (amaurosis fugax). She has a history of hemarthrosis in 2016 when INR was 14 secondary to interaction with warfarin and fluconazole. INR goal: 2 to 3 Duration: Indefinite Bridging assessment and details: CHADS-VASc= 8 (CAD s/p PCI and stent, DM, HTN, age >75, female, TIA (amaurosis fugax). She has a history of hemarthrosis in 2016 when INR was 14 secondary to interaction with warfarin and fluconazole. Date consult agreement signed by physician: 12/26/16 Patient has been notified verbally and/or in writing of the terms of the pharmacist-physician consult agreement for the anticoagulation clinic. Date: 12/30/16 +++Patient gets lab draw at [facility] in [place] [phone]+++ PT INR Date Value Ref Range Status 06/07/2019 2.1 Final Warfarin Dose: 2mg Friday; 3mg all other days of the week. Description CONTINUE 2mg Friday, Friday, and Friday; 3mg all other days of the week. Recheck 4 weeks. Patient has been on current warfarin dose for quite some time. Last INR was therapeutic 4 weeks ago. INR remains stable today. Will continue this dose. Discussed with patient on the phone who read back instructions and verbalized understanding. Estefania Cevallos, JpD Allergies As of Date: 06/07/2019 Noted Allergy Reaction CODEINE 03/20/2015 16 - Unknown CRESTOR (ROSUVASTATIN) 03/20/2015 14 - Other: See Comments Comments: Myalgias DEMEROL (MEPERIDINE) 03/20/2015 8 - GI Upset LATEX 03/20/2015 2 - Rash LIPITOR (ATORVASTATIN) 03/20/2015 14 - Other: See Comments Comments: Myalgias Date Reviewed: 05/13/2019 Reviewed by: Cruz Sanchez - Fully Assessed Reason for Visit: Coumadin/INR [1207] Visit Diagnosis:Atrial fibrillation, unspecified type (HCC) [I48.91] Order(s):PROTHROMBIN TIME/PT [SQPT] Order #: [id number] Prescriptions as of 06/07/2019 Sig: COQ-10 ORAL Take 1 capsule by mouth once * METFORMIN 500 MG TABLET Take 1 tablet by mouth daily * RANITIDINE 150 MG TABLET TAKE ONE TABLET BY MOUTH EVER* LISINOPRIL 5 MG TABLET TAKE ONE TABLET BY MOUTH once* JANTOVEN 2 MG TABLET TAKE 2 MG BY MOUTH ON FRIDAY,* FUROSEMIDE 20 MG TABLET TAKE ONE TABLET BY MOUTH ONCE* SIMVASTATIN 20 MG TABLET TAKE ONE TABLET BY MOUTH ADITI* LANCETS Use as instructed METOPROLOL SUCCINATE ER 100 M* Take 0.5 tablets by mouth onc* BLOOD SUGAR DIAGNOSTIC STRIPS Use as instructed. 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] Essential hypertension [I10] Mixed hyperlipidemia [E78.2] Osteoarthritis [M19.90] Vitamin D deficiency [E55.9] Atrial fibrillation (HCC)- ablation 2011 [I48.* On anticoagulant therapy [Z79.01] Spinal stenosis [M48.00] Peripheral venous insufficiency [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 [Z96.642] 05/19/2015 Reactive airway disease [J45.909] 11/14/2015 S/P coronary artery stent placement- 2006 [Z95*11/14/2015 Atherosclerosis of [place] coronary artery of na*11/14/2015 Asymptomatic cholelithiasis [K80.20] 12/18/2015 Hemarthrosis involving knee joint [M25.069] 02/09/2016 11/13/2016 History of knee replacement, total-bilateral [*02/09/2016 Presence of stent in coronary artery [Z95.5] 03/02/2016 OAB (overactive bladder) [N32.81] 12/11/2016 Incontinence of feces with fecal urgency [R15.9*12/11/2016 Chronic kidney disease, stage 2, mildly decreas* Tubular adenoma of colon-= 2014 last scope [D12* Adjustment disorder with depressed mood [F43.21]07/07/2017 Coronary arteriosclerosis [I25.10] Obesity, Class I, BMI 30-34.9 E66.9 [E66.9] 07/21/2017 Osteopenia of multiple sites [M85.89] 01/05/2018 Status post ablation of atrial fibrillation [Z9*01/05/2018 Chronic anticoagulation [Z79.01] 11/27/2018 Tendinitis of right rotator cuff [M75.81] 02/04/2019 S/P right rotator cuff repair [Z98.890] 02/04/2019 Rotator cuff tear arthropathy, right [M75.101, *02/04/2019 Encounter Status:Closed by BHAKTI (PHARMACIST)ESTEFANIA on 06/07/19 [facility] CNPMari 06-04-2019 CNPN Telephone (SARITHAMAC) EZRA GONZALEZ ([id number]) 1935 F Date Time Provider Department 06/04/19 ESTEFANIA CEVALLOS During your visit today, we recorded the following information about you: Estefania Cevallos PharmD 06/04/2019 2:30 PM Signed Patient was due to have an INR drawn at the end of May. We have not received results. Please check with patient. Angela Collins LPN, LPN 06/04/2019 3:44 PM Signed Called and spoke with pt and she stated she will go mon am to lab for INR Jacquelyn Ovalles LPN Allergies As of Date: 06/04/2019 Noted Allergy Reaction CODEINE 03/20/2015 16 - Unknown CRESTOR (ROSUVASTATIN) 03/20/2015 14 - Other: See Comments Comments: Myalgias DEMEROL (MEPERIDINE) 03/20/2015 8 - GI Upset LATEX 03/20/2015 2 - Rash LIPITOR (ATORVASTATIN) 03/20/2015 14 - Other: See Comments Comments: Myalgias Date Reviewed: 05/13/2019 Reviewed by: Cruz Sanchez - Fully Assessed Reason for Visit: Coumadin/INR [1207] Prescriptions as of 06/04/2019 Sig: COQ-10 ORAL Take 1 capsule by mouth once * METFORMIN 500 MG TABLET Take 1 tablet by mouth daily * RANITIDINE 150 MG TABLET TAKE ONE TABLET BY MOUTH EVER* LISINOPRIL 5 MG TABLET TAKE ONE TABLET BY MOUTH once* JANTOVEN 2 MG TABLET TAKE 2 MG BY MOUTH ON FRIDAY,* FUROSEMIDE 20 MG TABLET TAKE ONE TABLET BY MOUTH ONCE* SIMVASTATIN 20 MG TABLET TAKE ONE TABLET BY MOUTH ADITI* LANCETS Use as instructed METOPROLOL SUCCINATE ER 100 M* Take 0.5 tablets by mouth onc* BLOOD SUGAR DIAGNOSTIC STRIPS Use as instructed. 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] Essential hypertension [I10] Mixed hyperlipidemia [E78.2] Osteoarthritis [M19.90] Vitamin D deficiency [E55.9] Atrial fibrillation (HCC)- ablation 2011 [I48.* On anticoagulant therapy [Z79.01] Spinal stenosis [M48.00] Peripheral venous insufficiency [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 [Z96.642] 05/19/2015 Reactive airway disease [J45.909] 11/14/2015 S/P coronary artery stent placement- 2006 [Z95*11/14/2015 Atherosclerosis of [place] coronary artery of na*11/14/2015 Asymptomatic cholelithiasis [K80.20] 12/18/2015 Hemarthrosis involving knee joint [M25.069] 02/09/2016 11/13/2016 History of knee replacement, total-bilateral [*02/09/2016 Presence of stent in coronary artery [Z95.5] 03/02/2016 OAB (overactive bladder) [N32.81] 12/11/2016 Incontinence of feces with fecal urgency [R15.9*12/11/2016 Chronic kidney disease, stage 2, mildly decreas* Tubular adenoma of colon-= 2014 last scope [D12* Adjustment disorder with depressed mood [F43.21]07/07/2017 Coronary arteriosclerosis [I25.10] Obesity, Class I, BMI 30-34.9 E66.9 [E66.9] 07/21/2017 Osteopenia of multiple sites [M85.89] 01/05/2018 Status post ablation of atrial fibrillation [Z9*01/05/2018 Chronic anticoagulation [Z79.01] 11/27/2018 Tendinitis of right rotator cuff [M75.81] 02/04/2019 S/P right rotator cuff repair [Z98.890] 02/04/2019 Rotator cuff tear arthropathy, right [M75.101, *02/04/2019 Encounter Status:Closed by BHAKTI (PHARMACIST)ESTEFANIA on 06/04/19 [facility] CNOVon 05-13-2019 CNOV Office Visit ([facility] ) LISAEZRA ([id number]) 1935 F Date Time Provider Department 05/13/19 4:00 PM CRUZ SANCHEZ [id number] During your visit today, we recorded the following information about you: Respiration Weight Height 18/minute 82.6 kg 1.613 m Cruz Sanchez MD 05/13/2019 5:00 PM Signed HISTORY OF PRESENT ILLNESS: Ezra Gonzalez is an 83-year-old [id number] female who returns for follow-up 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 Patient was doing relatively well right shoulder comfort as of last visit 03/18/19. She then describes aggravating right shoulder pain with lifting heavy trash bags and also lifting firewood into the house. She admits to being relatively active using her right dominant arm. She has been slacking on any home shoulder exercises and is not doing deltoid presses as previously reviewed. She is not on shoulder pain management and avoids anti-inflammatory medicines. She is still sleeping fairly comfortable though avoids prolonged turning onto the right side. She denies numbness or tingling right upper extremity. She is status post right shoulder chronic large 4 cm supraspinatus and infraspinatus rotator cuff tear repair, ruptured long head of the biceps tendon and modified open anterior acromioplasty almost 9 years ago, 04/17/10, with clinical evidence of recurrent rotator cuff tear. 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) - Old ID (myocardial infarction) 2006 - On anticoagulant therapy - 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 therapy - Osteoarthritis - Peripheral venous insufficiency - Renal disorder Renal disorder due to type 2 diabetes mellitus - Rotator cuff syndrome - Spinal stenosis - Tubular adenoma of colon-= 2014 last scope - Type 2 diabetes mellitus (HCC) - Vitamin D deficiency PAST SURGICAL HISTORY Procedure Laterality Date - 24 HR HOLTER MONITOR 01/31/2012 - ECHOCARDIOGRAM 01/31/2012 - EKG 07/31/2015 - FOOT SURGERY HX Bilateral - HEART CATHETERIZATION 12/16/2008 - HERNIA REPAIR HX - HYSTERECTOMY HX - NUCLEAR STRESS LEXISCAN (CARD) 11/08/2015 - SHOULDER SURGERY HX Right [address] Sanchez - SHX CARDIAC RADIOFREQUENCY ABLATION 2011 - TOTAL HIP REPLACEMENT Left 2009 - TOTAL KNEE REPLACEMENT Bilateral 01/04/2016 Current Outpatient Medications Medication Sig - ubidecarenone (COQ-10 ORAL) Take 1 capsule by mouth once daily. - metFORMIN (GLUCOPHAGE) 500 mg tablet Take 1 tablet by mouth daily with breakfast. - ranitidine (ZANTAC) 150 mg tablet TAKE ONE TABLET BY MOUTH EVERY DAY - lisinopril (ZESTRIL, PRINIVIL) 5 mg tablet TAKE ONE TABLET BY MOUTH once DAILY - JANTOVEN 2 mg tablet TAKE 2 MG BY MOUTH ON FRIDAY, FRIDAY AND FRIDAY AND TAKE 3 MG ON ALL OTHER DAYS. - furosemide (LASIX) 20 mg tablet TAKE ONE TABLET BY MOUTH ONCE DAILY - simvastatin (ZOCOR) 20 mg tablet TAKE ONE TABLET BY MOUTH DAILY AT BEDTIME - Lancets lancets Use as instructed - metoprolol succinate ER (TOPROL XL) 100 mg Tb24 Take 0.5 tablets by mouth once daily. - blood sugar diagnostic (BLOOD GLUCOSE TEST) test strip Use as instructed. Pt testing 2-3 times a week. One touch test strips # 17 Diagnosis code E11.9 - ammonium lactate (LAC-HYDRIN) 12 % lotion Apply 1 application to affected area as needed. - melatonin 1 mg tablet Take 1 mg by mouth daily at bedtime. - cholecalciferol (VITAMIN D3) 1,000 unit tab Take 1,000 Units by mouth once daily. No current facility-administered medications for this visit. ALLERGIES Allergen Reactions - Codeine Unknown - Crestor [Rosuvastat* Other: See Comments Myalgias - Demerol [Meperidine] GI Upset - Latex Rash - Lipitor [Atorvastat* Other: See Comments Myalgias Tobacco Use: 1 packs/day, for 30 years. Quit 03/20/2008. Types: Cigarettes Alcohol Use: No REVIEW OF SYSTEMS: GENERAL: Well developed, well nourished. No acute distress PAIN: R Shoulder CARDIOVASCULAR: Peripheral venous insufficiency, h/o ID, HTN, Coronary Arteriosclerosis, A-Fib, Cardiac Ablation MSK: Spinal Stenosis, Rotator Cuff Syndrome, Osteoarthritis, DJD, B TKA, R Shoulder RCR Sx 2010, B Foot Sx SKIN: Negative for lesions, rash, itching, metal sensitivity NEURO: Negative for seizure, trauma, numbness/tingling of extremities. ENDOCRINE: DM II Controlled, Diabetic Renal Disease, CKD Stage III, HEMATOLOGY: Jantoven PHYSICAL EXAMINATION: Vital Signs Resp 18 Ht 5' 3.5 (1.61m) Wt 182 lb (82.6kg) BMI 31.73 kg/(m2). Physical exam reveals no tenderness of the posterior cervical spine. No radiating right shoulder pain on cervical motion or neck axial compression. Right shoulder symmetrical contour without swelling, ecchymosis or erythema. Benign anterosuperior incisional scar without local tenderness. Intact anterior deltoid origin. Suspected mild rotator cuff muscle atrophy. No palpable right shoulder joint or bursal effusion. Ruptured retracted long head of the biceps contour right anterior shoulder without local tenderness (chronic). Right acromioclavicular joint mild bulbous enlargement and remains nontender. Distal clavicle stable. No scapular winging. Subacromial motion with persistent palpaple crepitance. No residual tenderness of the coracoacromial arch. Suspected palpable defect of the cuff insertion region. No local tenderness of the anterior and posterior right shoulder joint region. No distinct palpable glenohumeral joint crepitance. Right shoulder decreased active forward elevation to 125? sitting with humeral head stable beneath the acromial arch. Right shoulder active external rotation 55? bilateral. Internal rotation behind the back to L3. Right lateral shoulder ache with improving cross body reaching. Mild impingement sign. Negative reinforcement sign. Symmetrical strength on resisted right shoulder abduction and forward flexion. Right shoulder external rotation strength, grade 4+/5 strength, without discomfort. Persistent right shoulder pain and weakness on supraspinatus testing, grade 4?/5 strength. Good strength on resisted elbow flexion. Biceps testing non provocative. Intact liftoff test. Distal neurologic testing C6-T1 upper extremities unremarkable. Radial pulse symmetrical. RADIOGRAPHS: Previous right shoulder radiographs, 02/04/19, including AP, axillary and outlet view reveals humeral head superior migration with narrowing of the acromiohumeral distance measuring 5 mm. Positive eburnation of the greater tuberosity with lateral spurring. Narrowing of the superior aspect of the glenohumeral joint cartilage space without apparent superior glenoid erosion. Mild proximal humeral osteopenia. No apparent anterior humeral subluxation on axillary radiograph. Mild degenerative change of the acromioclavicular joint. INJECTIONS: Right shoulder cortisone subacromial injection, 02/04/19 and today, 05/13/19. ASSESSMENT: M75.101, M12.811 Rotator cuff tear arthropathy, right (primary encounter diagnosis) Comment: Re-aggravated right shoulder pain and limited functional goals regarding nonoperative management of clinical large degenerative rotator cuff tear with radiographic humeral head superior migration and glenohumeral arthropathy. Z98.890 S/P right rotator cuff repair Comment: Status post right shoulder chronic large 4 cm supraspinatus and infraspinatus rotator cuff tear repair, ruptured long head of the biceps tendon and modified open anterior acromioplasty, 04/17/10. PLAN: 1. Rotator cuff tear arthropathy, right - RIGHT SHOULDER CORTISONE INJECTION Large Joint Arthro/Inj: R subacromial bursa The risks, benefits and alternatives of the procedure were reviewed with the patient/surrogate, who agreed to proceed. Written Consent Obtained: N/A Sign In Communication: Completed Time Out: Time Out completed The Time-Out verifies the correct patient, procedure, side/site, position (if applicable) and completion and review of fire risk assessment/protocols (if appropriate): Affirmation of Time Out: Yes Signout Discussion: Yes 05/13/2019 4:59 PM The procedure site was prepped in the usual sterile fashion. Allergies were reviewed Site: R subacromial bursa Medications: 12 mg betamethasone acetate-betamethasone sodium phosphate 6 mg/mL Anesthetics: 3 mL lidocaine (PF) 10 mg/mL (1 %) Outcome: Post-injection instructions were reviewed with the patient and the patient voiced understanding of these instructions. 2. S/P right rotator cuff repair Patient was further discussed the concept of limited functional goals given the chronic recurrent rotator cuff tear deficiency and developing cuff tear arthropathy. She was re-emphasized the importance of refraining from pushing, pulling or lifting right shoulder staying less than 5-10 pounds. She requested additional right shoulder cortisone injection. This was provided utilizing sterile technique with 3 cc lidocaine and 2 cc Celestone which he tolerated well. She was further instructed on gentle home shoulder stretching and strengthening exercises with emphasis on deltoid supine presses. Tylenol discussed as option for pain. She avoids anti-inflammatory medicine due to past renal problems. Alternative treatment of right reverse shoulder arthroplasty surgery discussed and patient would like to avoid surgery. She elects to follow-up as needed. MD Cruz Bolton MD 05/13/2019 4:56 PM Signed Patient was further discussed the concept of limited functional goals given the chronic recurrent rotator cuff tear deficiency and developing cuff tear arthropathy. She was re-emphasized the importance of refraining from pushing, pulling or lifting right shoulder staying less than 5-10 pounds. She requested additional right shoulder cortisone injection. This was provided utilizing sterile technique with 3 cc lidocaine and 2 cc Celestone which he tolerated well. She was further instructed on gentle home shoulder stretching and strengthening exercises with emphasis on deltoid supine presses. Tylenol discussed as option for pain. She avoids anti-inflammatory medicine due to past renal problems. Alternative treatment of right reverse shoulder arthroplasty surgery discussed and patient would like to avoid surgery. She elects to follow-up as needed. Referring Provider: SELF [[id number]] Allergies As of Date: 05/13/2019 Noted Allergy Reaction CODEINE 03/20/2015 16 - Unknown CRESTOR (ROSUVASTATIN) 03/20/2015 14 - Other: See Comments Comments: Myalgias DEMEROL (MEPERIDINE) 03/20/2015 8 - GI Upset LATEX 03/20/2015 2 - Rash LIPITOR (ATORVASTATIN) 03/20/2015 14 - Other: See Comments Comments: Myalgias Date Reviewed: 05/13/2019 Reviewed by: Cruz Sanchez - Fully Assessed Reason for Visit: Established Patient [[id number]] Primary Visit Diagnosis:Rotator cuff tear arthropathy, right [M75.101, M12.811] Other Visit Diagnosis:S/P right rotator cuff repair [Z98.890] Order(s):Large Joint Arthro/Inj: R subacromial bursa [ZMS456] Order #: [id number] betamethasone acetate-betamethasone sodium phosphate 12 mg injection (CELESTONE)Disp: Rfl: lidocaine (PF) 10 mg/mL (1 %) 3 mL injection (XYLOCAINE)Disp: Rfl: Prescriptions as of 05/13/2019 Sig: COQ-10 ORAL Take 1 capsule by mouth once * METFORMIN 500 MG TABLET Take 1 tablet by mouth daily * RANITIDINE 150 MG TABLET TAKE ONE TABLET BY MOUTH EVER* LISINOPRIL 5 MG TABLET TAKE ONE TABLET BY MOUTH once* JANTOVEN 2 MG TABLET TAKE 2 MG BY MOUTH ON FRIDAY,* FUROSEMIDE 20 MG TABLET TAKE ONE TABLET BY MOUTH ONCE* SIMVASTATIN 20 MG TABLET TAKE ONE TABLET BY MOUTH ADITI* LANCETS Use as instructed METOPROLOL SUCCINATE ER 100 M* Take 0.5 tablets by mouth onc* BLOOD SUGAR DIAGNOSTIC STRIPS Use as instructed. Pt testing* AMMONIUM LACTATE 12 % LOTION Apply 1 application to affect* MELATONIN 1 MG TABLET Take 1 mg by mouth daily at b* CHOLECALCIFEROL (VITAMIN D3) * Take 1,000 Units by mouth onc* Problem List As Of Date 05/13/2019 Noted Resolved Type 2 diabetes mellitus (HCC) [E11.9] Diabetic renal disease (HCC) [E11.21] Essential hypertension [I10] Mixed hyperlipidemia [E78.2] Osteoarthritis [M19.90] Vitamin D deficiency [E55.9] Atrial fibrillation (HCC)- ablation 2011 [I48.* On anticoagulant therapy [Z79.01] Spinal stenosis [M48.00] Peripheral venous insufficiency [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 [Z96.642] 05/19/2015 Reactive airway disease [J45.909] 11/14/2015 S/P coronary artery stent placement- 2006 [Z95*11/14/2015 Atherosclerosis of [place] coronary artery of na*11/14/2015 Asymptomatic cholelithiasis [K80.20] 12/18/2015 Hemarthrosis involving knee joint [M25.069] 02/09/2016 11/13/2016 History of knee replacement, total-bilateral [*02/09/2016 Presence of stent in coronary artery [Z95.5] 03/02/2016 OAB (overactive bladder) [N32.81] 12/11/2016 Incontinence of feces with fecal urgency [R15.9*12/11/2016 Chronic kidney disease, stage 2, mildly decreas* Tubular adenoma of colon-= 2014 last scope [D12* Adjustment disorder with depressed mood [F43.21]07/07/2017 Coronary arteriosclerosis [I25.10] Obesity, Class I, BMI 30-34.9 E66.9 [E66.9] 07/21/2017 Osteopenia of multiple sites [M85.89] 01/05/2018 Status post ablation of atrial fibrillation [Z9*01/05/2018 Chronic anticoagulation [Z79.01] 11/27/2018 Tendinitis of right rotator cuff [M75.81] 02/04/2019 S/P right rotator cuff repair [Z98.890] 02/04/2019 Rotator cuff tear arthropathy, right [M75.101, *02/04/2019 Other instructions from your clinician: Patient was further discussed the concept of limited functional goals given the chronic recurrent rotator cuff tear deficiency and developing cuff tear arthropathy. She was re-emphasized the importance of refraining from pushing, pulling or lifting right shoulder staying less than 5-10 pounds. She requested additional right shoulder cortisone injection. This was provided utilizing sterile technique with 3 cc lidocaine and 2 cc Celestone which he tolerated well. She was further instructed on gentle home shoulder stretching and strengthening exercises with emphasis on deltoid supine presses. Tylenol discussed as option for pain. She avoids anti-inflammatory medicine due to past renal problems. Alternative treatment of right reverse shoulder arthroplasty surgery discussed and patient would like to avoid surgery. She elects to follow-up as needed. Prescriptions ordered this encounter Disp Refills Start End BETAMETHASONE ACETATE AND SODIUM MARQUES* 05/13/2019 Route: Inj-ORTHO LIDOCAINE (PF) 10 MG/ML (1 %) INJECT* 05/13/2019 Route: Inj-ORTHO Disposition: Return if symptoms worsen or fail to improve. Follow-up and Disposition History Recorded Encounter Status:Closed by CRUZ SANCHEZ MD on 05/13/19 [facility] PROGRESSon 05-13-2019 PROGRESS HNO ID: [id number] Author: Cruz Sanchez Service: ? Author Type: Physician Type: Progress Notes Filed: 05/13/2019 5:00 PM Note Text: HISTORY OF PRESENT ILLNESS: Ezra Gonzalez is an 83-year-old [id number] female who returns for follow-up 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 Patient was doing relatively well right shoulder comfort as of last visit 03/18/19. She then describes aggravating right shoulder pain with lifting heavy trash bags and also lifting firewood into the house. She admits to being relatively active using her right dominant arm. She has been slacking on any home shoulder exercises and is not doing deltoid presses as previously reviewed. She is not on shoulder pain management and avoids anti-inflammatory medicines. She is still sleeping fairly comfortable though avoids prolonged turning onto the right side. She denies numbness or tingling right upper extremity. She is status post right shoulder chronic large 4 cm supraspinatus and infraspinatus rotator cuff tear repair, ruptured long head of the biceps tendon and modified open anterior acromioplasty almost 9 years ago, 04/17/10, with clinical evidence of recurrent rotator cuff tear. 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) - Old ID (myocardial infarction) 2006 - On anticoagulant therapy - On senior care drug therapy - Osteoarthritis - Peripheral venous insufficiency - Renal disorder Renal disorder due to type 2 diabetes mellitus - Rotator cuff syndrome - Spinal stenosis - Tubular adenoma of colon-= 2014 last scope - Type 2 diabetes mellitus (HCC) - Vitamin D deficiency PAST SURGICAL HISTORY Procedure Laterality Date - 24 HR HOLTER MONITOR 01/31/2012 - ECHOCARDIOGRAM 01/31/2012 - EKG 07/31/2015 - FOOT SURGERY HX Bilateral - HEART CATHETERIZATION 12/16/2008 - HERNIA REPAIR HX - HYSTERECTOMY HX - NUCLEAR STRESS LEXISCAN (CARD) 11/08/2015 - SHOULDER SURGERY HX Right [address] Sanchez - SHX CARDIAC RADIOFREQUENCY ABLATION 2011 - TOTAL HIP REPLACEMENT Left 2009 - TOTAL KNEE REPLACEMENT Bilateral 01/04/2016 Current Outpatient Medications Medication Sig - ubidecarenone (COQ-10 ORAL) Take 1 capsule by mouth once daily. - metFORMIN (GLUCOPHAGE) 500 mg tablet Take 1 tablet by mouth daily with breakfast. - ranitidine (ZANTAC) 150 mg tablet TAKE ONE TABLET BY MOUTH EVERY DAY - lisinopril (ZESTRIL, PRINIVIL) 5 mg tablet TAKE ONE TABLET BY MOUTH once DAILY - JANTOVEN 2 mg tablet TAKE 2 MG BY MOUTH ON FRIDAY, FRIDAY AND FRIDAY AND TAKE 3 MG ON ALL OTHER DAYS. - furosemide (LASIX) 20 mg tablet TAKE ONE TABLET BY MOUTH ONCE DAILY - simvastatin (ZOCOR) 20 mg tablet TAKE ONE TABLET BY MOUTH DAILY AT BEDTIME - Lancets lancets Use as instructed - metoprolol succinate ER (TOPROL XL) 100 mg Tb24 Take 0.5 tablets by mouth once daily. - blood sugar diagnostic (BLOOD GLUCOSE TEST) test strip Use as instructed. Pt testing 2-3 times a week. One touch test strips # 17 Diagnosis code E11.9 - ammonium lactate (LAC-HYDRIN) 12 % lotion Apply 1 application to affected area as needed. - melatonin 1 mg tablet Take 1 mg by mouth daily at bedtime. - cholecalciferol (VITAMIN D3) 1,000 unit tab Take 1,000 Units by mouth once daily. No current facility-administered medications for this visit. ALLERGIES Allergen Reactions - Codeine Unknown - Crestor [Rosuvastat* Other: See Comments Myalgias - Demerol [Meperidine] GI Upset - Latex Rash - Lipitor [Atorvastat* Other: See Comments Myalgias Tobacco Use: 1 packs/day, for 30 years. Quit 03/20/2008. Types: Cigarettes Alcohol Use: No REVIEW OF SYSTEMS: GENERAL: Well developed, well nourished. No acute distress PAIN: R Shoulder CARDIOVASCULAR: Peripheral venous insufficiency, h/o ID, HTN, Coronary Arteriosclerosis, A-Fib, Cardiac Ablation MSK: Spinal Stenosis, Rotator Cuff Syndrome, Osteoarthritis, DJD, B TKA, R Shoulder RCR Sx 2010, B Foot Sx SKIN: Negative for lesions, rash, itching, metal sensitivity NEURO: Negative for seizure, trauma, numbness/tingling of extremities. ENDOCRINE: DM II Controlled, Diabetic Renal Disease, CKD Stage III, HEMATOLOGY: Jantoven PHYSICAL EXAMINATION: Vital Signs Resp 18 Ht 5' 3.5 (1.61m) Wt 182 lb (82.6kg) BMI 31.73 kg/(m2). Physical exam reveals no tenderness of the posterior cervical spine. No radiating right shoulder pain on cervical motion or neck axial compression. Right shoulder symmetrical contour without swelling, ecchymosis or erythema. Benign anterosuperior incisional scar without local tenderness. Intact anterior deltoid origin. Suspected mild rotator cuff muscle atrophy. No palpable right shoulder joint or bursal effusion. Ruptured retracted long head of the biceps contour right anterior shoulder without local tenderness (chronic). Right acromioclavicular joint mild bulbous enlargement and remains nontender. Distal clavicle stable. No scapular winging. Subacromial motion with persistent palpaple crepitance. No residual tenderness of the coracoacromial arch. Suspected palpable defect of the cuff insertion region. No local tenderness of the anterior and posterior right shoulder joint region. No distinct palpable glenohumeral joint crepitance. Right shoulder decreased active forward elevation to 125? sitting with humeral head stable beneath the acromial arch. Right shoulder active external rotation 55? bilateral. Internal rotation behind the back to L3. Right lateral shoulder ache with improving cross body reaching. Mild impingement sign. Negative reinforcement sign. Symmetrical strength on resisted right shoulder abduction and forward flexion. Right shoulder external rotation strength, grade 4+/5 strength, without discomfort. Persistent right shoulder pain and weakness on supraspinatus testing, grade 4?/5 strength. Good strength on resisted elbow flexion. Biceps testing non provocative. Intact liftoff test. Distal neurologic testing C6-T1 upper extremities unremarkable. Radial pulse symmetrical. RADIOGRAPHS: Previous right shoulder radiographs, 02/04/19, including AP, axillary and outlet view reveals humeral head superior migration with narrowing of the acromiohumeral distance measuring 5 mm. Positive eburnation of the greater tuberosity with lateral spurring. Narrowing of the superior aspect of the glenohumeral joint cartilage space without apparent superior glenoid erosion. Mild proximal humeral osteopenia. No apparent anterior humeral subluxation on axillary radiograph. Mild degenerative change of the acromioclavicular joint. INJECTIONS: Right shoulder cortisone subacromial injection, 02/04/19 and today, 05/13/19. ASSESSMENT: M75.101, M12.811 Rotator cuff tear arthropathy, right (primary encounter diagnosis) Comment: Re-aggravated right shoulder pain and limited functional goals regarding nonoperative management of clinical large degenerative rotator cuff tear with radiographic humeral head superior migration and glenohumeral arthropathy. Z98.890 S/P right rotator cuff repair Comment: Status post right shoulder chronic large 4 cm supraspinatus and infraspinatus rotator cuff tear repair, ruptured long head of the biceps tendon and modified open anterior acromioplasty, 04/17/10. PLAN: 1. Rotator cuff tear arthropathy, right - RIGHT SHOULDER CORTISONE INJECTION Large Joint Arthro/Inj: R subacromial bursa The risks, benefits and alternatives of the procedure were reviewed with the patient/surrogate, who agreed to proceed. Written Consent Obtained: N/A Sign In Communication: Completed Time Out: Time Out completed The Time-Out verifies the correct patient, procedure, side/site, position (if applicable) and completion and review of fire risk assessment/protocols (if appropriate): Affirmation of Time Out: Yes Signout Discussion: Yes 05/13/2019 4:59 PM The procedure site was prepped in the usual sterile fashion. Allergies were reviewed Site: R subacromial bursa Medications: 12 mg betamethasone acetate-betamethasone sodium phosphate 6 mg/mL Anesthetics: 3 mL lidocaine (PF) 10 mg/mL (1 %) Outcome: Post-injection instructions were reviewed with the patient and the patient voiced understanding of these instructions. 2. S/P right rotator cuff repair Patient was further discussed the concept of limited functional goals given the chronic recurrent rotator cuff tear deficiency and developing cuff tear arthropathy. She was re-emphasized the importance of refraining from pushing, pulling or lifting right shoulder staying less than 5-10 pounds. She requested additional right shoulder cortisone injection. This was provided utilizing sterile technique with 3 cc lidocaine and 2 cc Celestone which he tolerated well. She was further instructed on gentle home shoulder stretching and strengthening exercises with emphasis on deltoid supine presses. Tylenol discussed as option for pain. She avoids anti-inflammatory medicine due to past renal problems. Alternative treatment of right reverse shoulder arthroplasty surgery discussed and patient would like to avoid surgery. She elects to follow-up as needed. Cruz Sanchez MD [facility] 04-27-2019 [facility] Office Visit ([facility]) EZRA GONZALEZ ([id number]) 1935 F Date Time Provider Department 04/27/19 3:40 PM JO PEREZ [facility] During your visit today, we recorded the following information about you: Temperature Pulse Respiration Blood pressure 97.2 degrees 71/minute 17/minute 112/74 Weight Height 82.6 kg 1.613 m Jo Perez MD 04/27/2019 4:24 PM Signed Medicare Yearly Visit [facility] date Date of last exam She is type II diabetic-she had been diet controlled recently her A1c did creep up to 7.1 therefore started metformin her kidney function remained stable after recheck after couple of weeks She is due for an eye exam History of atrial fibrillation status post ablation follows with cardiology once a year also follows with Coumadin clinic on chronic oral anticoagulation tolerating well Kidney function creatinine is 1.06 GFR is 49-50. Fasting glucose is 118 liver functions were normal triglycerides are 155 LDL was 82. 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 Socializes No alcohol No volunteer Does keep busy Has been helping her partner selling house Started with intermittent diarrhea Has been 1 week --had to take imodium She has known asymptomatic gallstones ACTIVE PROBLEM LIST Type 2 Diabetes Mellitus (Hcc) Diabetic Renal Disease (Hcc) Essential Hypertension Mixed Hyperlipidemia Osteoarthritis Vitamin D Deficiency Atrial fibrillation (HCC)- ablation 2011 On Anticoagulant Therapy Spinal Stenosis Peripheral Venous Insufficiency Status Post Left Hip Replacement Reactive Airway Disease S/P coronary artery stent placement- 2006 Atherosclerosis of [place] Coronary Artery of [place] Heart Without Angina Pectoris Asymptomatic Cholelithiasis History of knee replacement, total-bilateral Presence of Stent in Coronary Artery Oab (Overactive Bladder) Incontinence of Feces With Fecal Urgency Chronic Kidney Disease, Stage 2, Mildly Decreased Gfr Tubular adenoma of colon-= 2014 last scope Adjustment Disorder With Depressed Mood Coronary Arteriosclerosis Obesity, Class I, BMI 30-34.9 E66.9 Osteopenia of Multiple Sites Status Post Ablation of Atrial Fibrillation Chronic Anticoagulation Tendinitis of Right Rotator Cuff S/P right rotator cuff repair Rotator Cuff Tear Arthropathy, Right Social History Tobacco Use - Smoking status: Former Smoker Packs/day: 1.00 Years: 30.00 Pack years: 30.00 Types: Cigarettes Last attempt to quit: 03/20/2008 Years since quittin.1 - Smokeless tobacco: Never Used Substance Use Topics - Alcohol use: No - Drug use: No FAMILY HISTORY Problem Relation Age of Onset - Coronary Artery Disease Father - Alzheimer's Disease Mother - Coronary Artery Disease Mother - Coronary Artery Disease Brother - Hyperlipidemia Brother - Hypertension Brother Current Outpatient Medications on File Prior to Visit Medication Sig - ubidecarenone (COQ-10 ORAL) Take 1 capsule by mouth once daily. - metFORMIN (GLUCOPHAGE) 500 mg tablet Take 1 tablet by mouth twice daily with meals. - ranitidine (ZANTAC) 150 mg tablet TAKE ONE TABLET BY MOUTH EVERY DAY - lisinopril (ZESTRIL, PRINIVIL) 5 mg tablet TAKE ONE TABLET BY MOUTH once DAILY - JANTOVEN 2 mg tablet TAKE 2 MG BY MOUTH ON FRIDAY, FRIDAY AND FRIDAY AND TAKE 3 MG ON ALL OTHER DAYS. - furosemide (LASIX) 20 mg tablet TAKE ONE TABLET BY MOUTH ONCE DAILY - simvastatin (ZOCOR) 20 mg tablet TAKE ONE TABLET BY MOUTH DAILY AT BEDTIME - Lancets lancets Use as instructed - metoprolol succinate ER (TOPROL XL) 100 mg Tb24 Take 0.5 tablets by mouth once daily. - blood sugar diagnostic (BLOOD GLUCOSE TEST) test strip Use as instructed. Pt testing 2-3 times a week. One touch test strips # 17 Diagnosis code E11.9 - ammonium lactate (LAC-HYDRIN) 12 % lotion Apply 1 application to affected area as needed. - melatonin 1 mg tablet Take 1 mg by mouth daily at bedtime. - cholecalciferol (VITAMIN D3) 1,000 unit tab Take 1,000 Units by mouth once daily. No current facility-administered medications on file prior to visit. gets minimal exercise. She watches her diet for sodium, low fat and low cholesterol most of the time. List of current specialists seen: Start End Updated PCPs Jo Perez PCP - General Family Practice 03/20/2015 End 03/20/15 ; Other Patient Care Team Members [facility]ropractor 05/19/2015 End 05/19/15 ; Patito Gonzalez Podiatry 05/19/2015 End 05/19/15 Nirmal Kemp EVENT ORGANIZER 07/07/2017 End 07/07/17 ; Mohan Álvarez Ophthalmology 07/07/2017 End 07/07/17 Rickey Chavarria Cardiology 09/30/2018 End 09/30/18 ; End of Live Planning discussed including patients advanced directive wishes: Yes I am willing to follow advanced directives. Mini-Cog Patient asked to remember the following three words: Banana, [place] and Chair Visuospatial/Executiv e Functioning: Clock drawin/2 (Normal clock with all number in correct sequence and position, hands are correct = 2 points, inability or refusal to draw a clock = 0) Three word recall: 3/3 Total score: 5/5 (Total score = word recall score + clock draw score) Research shows that a cut point of <3 on the Mini-Cog has been validated for dementia screening but many individuals with clinically meaningful cognitive impairment will score higher. When greater sensitivity is desired, a cut-point of <4 is recommended as it may indicate a need for further evaluation of cognitive status. Depression screen She in the past two weeks denies having felt down, depressed, hopeless or with little interest or pleasure in doing things. Functional Ability/Safety Screen 1. Was the patient's timed Up and Go test unsteady or longer than 30 seconds? Yes 2. Does the patient need help with the phone, transportation, shopping,preparing meals, housework, laundry, medications or managing money? No 3. Does your home have rugs in the hallway, lack of grab bars in the bathroom, lack of handrails on the stairs or have poor lighting? no rugs, has grab bars in bathroom, good lighting, handrails on stairs Hearing Evaluation: normal Review Of Systems GENERAL:No weight loss, malaise or fevers HEENT:Negative for frequent or significant headaches, No changes in hearing or vision, no nose bleeds or other nasal problems NECK:Negative for lumps, goiter, pain and significant neck swelling RESPIRATORY: Negative for cough, hemoptysis, wheezing or shortness of breath CARDIOVASCULAR: Negative for chest pain, leg swelling or palpitations GASTROINTESTINAL: No nausea, vomiting, or diarrhea GENITOURINARY: No history of dysuria, frequency or incontinence PHARMACY TECHNICIAN TRAINEE: Negative for abnormal vaginal bleeding, abnormal vaginal discharge MUSCULOSKELETAL: Negative for joint pain or swelling, back pain or muscle pain NEUROLOGIC:Negative for focal numbness or weakness, headaches and dizziness or syncope. SKIN:Negative for lesions, rash, and itching PSYCHIATRIC: Negative for sleep disturbance, mood disorder and recent psychosocial stressors. HEMATOLOGIC/LYMPHATIC /IMMUNOLOGIC:Negative for prolonged bleeding, bruising easily or swollen nodes ENDOCRINE: Negative for cold or heat intolerance, polyuria, polydipsia and goiter The remainder of the ROS was negative. Difficulty staying asleep No tv in bed Light sleeper Takes 1 mg melatonin PHYSICAL : BP 112/74 Pulse 71 Temp 36.2 ?C (97.2 ?F) Resp 17 Ht 161.3 cm (5' 3.5) Wt 82.6 kg (182 lb) BMI 31.73 kg/m? Alert and oriented X 3: YES There is no weight on file to calculate BMI. Visual acuity: PHYSICAL EXAMINATION: General appearance: Well appearing, alert, in no acute distress, well-hydrated, well nourished. and Overweight Skin: Skin color, texture, turgor normal, no suspicious rashes or lesions Head: Normocephalic, no masses, lesions, tenderness or abnormalities Eyes: Anicteric sclera. Pupils are equally round and reactive to light. Extraocular movements are intact. Ears: External ears normal, canals clear, TM's normal Nose/Sinuses: Nares normal, septum midline, mucosa normal, no drainage or sinus tenderness Oropharynx: Lips, mucosa, and tongue normal, teeth and gums normal, oropharynx normal Neck: Supple, no adenopathy; thyroid symmetric, normal size, no bruits Back: Normal exam Lungs: Lungs clear to auscultation. No wheezing, rhonchi, rales Heart: RRR without murmur, gallop, or rubs. No ectopy Abdomen: Normal abdominal exam, Abdomen soft, non-tender. Bowel sounds normal. No masses, organomegaly Extremities: No deformities, edema, skin discoloration, clubbing or cyanosis. Good capillary refill. Musculoskeletal: No joint swelling, deformity, or tenderness Peripheral pulses: Normal Neuro: Gait normal. Reflexes normal and symmetric. Sensation grossly intact. ASSESSMENT/PLAN: 1. Encounter for Medicare annual wellness exam - ICD9: V70.0, ICD10: Z00.00 (primary diagnosis) - Set up for mammogram, yearly mammogram recommended - Encouraged monthly Breast Self Exam - Recommended calcium intake with supplements or by diet (goal of 6945-6453 mg/day - Discussed need and benefit for weight loss. BMI 31.73 kg/(m2) - Vaccination(s) recommended today of Influenza - Follow up for annual exam in one year. Sleep issues -- 3mg melatonin qhs 30 min before bedtime Was on 1 mg at bedtime 2. Type 2 diabetes mellitus without complication, without long-term current use of insulin (HCC) - ICD9: 250.00, ICD10: E11.9 Controlled. - Continue current medications - Decrease metformin to 500 mg po daily Recheck in 3 months - Blood glucose monitoring on a once a day schedule - Ophthalmology referral for eval/management of diabetic eye changes--is scheduled - Follow up in 6 months, sooner should any other issues arise. 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 - BP goal of <130/80 - LDL goal of <100 - - HGB A1C -recheck in 3 months 3. Essential hypertension - ICD9: 401.9, ICD10: I10 - good control - Continue current medication(s) - Encouraged dietary sodium restriction/DASH diet - Recommended regular aerobic exercise. - Recommend home blood pressure monitoring, to bring results in on next visit - Follow up in 1 month for BP recheck. - Recheck in 6 months, sooner should new symptoms or problems arise. - Reviewed risks of HTN and principles of treatment - Goal of BP <130/80 - Recommend home or pharmacy blood pressure monitoring - Recommended no refined sugar, low refined starch, healthy oil intake (olive oil), healthy protein (fish) along the lines of the Mediterranean diet. - COMP METABOLIC PANEL 4. Presence of stent in coronary artery - ICD9: V45.82, ICD10: Z95.5 -- recommend recheck in 10/2019 5. Coronary arteriosclerosis - ICD9: 414.00, ICD10: I25.10 --on meds 6. Mixed hyperlipidemia - ICD9: 272.2, ICD10: E78.2 - good control - Continue current medication. - Encouraged following a low fat, low cholesterol diet. - Discussed the benefits of regular aerobic exercise and weight loss. - Encouraged following a low carbohydrate, healthy oil intake diet. - Continue current therapy. 7. Chronic anticoagulation - ICD9: V58.61, ICD10: Z79.01 - on coumadin 8. Osteopenia of multiple sites - ICD9: 733.90, ICD10: M85.89 - set up for BMD AP Spine and Hip Unilateral - Reviewed the need for Calcium and Vitamin D supplements and weight bearing exercise as tolerated 9. Chronic kidney disease, stage 2, mildly decreased GFR - ICD9: 585.2, ICD10: N18.2 Stable 10. Atrial fibrillation, unspecified type (HCC)-s/p ablation - ICD9: 427.31, ICD10: I48.91 --on oral anticoagulation Had an episode a few weeks ago -resolved in 2 weeks ago 11. Need for vaccination - ICD9: V05.9, ICD10: Z23 - ADMIN OF INFLUENZA VACCINE - INFLUENZA SEASONAL HIGH DOSE AGE 65+ 12. Intermittent acute diarrhea?we discussed the incident about a cholelithiasis avoiding fatty greasy foods also be from the metformin to once a day really work on low carb diet and some 5-10% weight loss of her body weight Call next week with update - Jo Perez MD': The following prevention plan was discussed during the office visit and provided to the patient: - Glaucoma screening - Lipid panel MD Jo Knowles MD 04/27/2019 4:07 PM Signed Low-Carb Dieting How to Eat the Low-Carb Way Eating the low-carb way means building your diet around lean proteins along with vegetables and fruits prepared fairly simply. If you were a jisa-ebr-iyntdoyt eater, focus on the meat more than the carb-heavy potatoes. The tips in the following list offer advice on what foods to choose: ? Build your meals around fruites, vegetables, and lean protein food sources. ? Choose whole grains or legumes for your daily carb choices. Minimize your intake of processed foods. ? Choose very low-fat milk and dairy foods. ? Choose monounsaturated rather than saturated fates. ? Eat three or four meals per day. Never starve yourself and never skip meals. If you eat between meals, eat healthy foods that are also filling, such as apples or oranges. ? Do not eat a full meal right before bedtime. A bedtime snack such as nonfat yogurt or cottage cheese and fruit is okay. ? Drink plenty of water - eight glasses a day. ? Exercise moderately 30 to 60 minutes at least five times a week. ? Practice the 90-percent/10 percent rule: Follow this plan 90 percent of the time, and treat yourself to a favorite food 10 percent of the time. How to Stick with a Low-Carb Diet Sticking with your low-carb diet is much easier if you set yourself up for success and prepare yourself and you kitchen for a low-carb lifestyle. The tips in the following list can help you realize your goals: ? Set your kitchen up for success. Always have frz-puae-mdrwpylc foods on hand ready to eat. Remove as many irresistible temptations as possible. ? Avoid excessive hunger. Eat before you're starving. When you're ravenous, it's tougher to make a healthy choice. ? Prepare snacks in grab-and-go sizes. Make prepackaged snacks from cut-up veggies and whole wheat crackers in resealable plastic bags. Fresh fruit is already prepackaged for you convenience so carry some wherever you go. ? Eat a variety of foods. Make sure you eat a variety of foods for better nutrition. ? Find activities and exercises that you enjoy. If you look forward to exercise as you alone time, plan times when you can work out alone. Make our workout personal. ? Forgive yourself when you fail. Everyone experiences a setback from time to time. Don't use it as an excuse to give up completely. Figure out where you went wrong and get going again. How to Estimate Portion Sizes for a Low-Carb Diet A Low-Carb diet relies on knowing portion sizes to help you eat the proper quantities of the proper foods. To determine the number of low-carb servings you're eating, you need to estimate portion sizes. You may be surprised to see that normal portion sizes are a lot smaller than you think, as the comparisons in the following table show: Measurement Size 1/2 cup = About the size of a cupcake wrapper 1 cup = About the size of a tight fist or tennis ball 1 medium fruit = About the size of a tight fist or tennis ball 1 medium potato = About the size of a computer mouse 1 ounce cheese = About the size of your thumb or a pair of dice 3 ounces meat = About the size of the palm of a woman's hand or a deck of cards 2 tablespoons reduced - fat salad dressing = About the size of a Ping-Pong ball 1 teaspoon oil or butter = About the size of the tip of a thumb Approved Snacks for a Low-Carb Diet Low-carb snacks are a good choice no matter which diet you're following because they're mostly fruits and vegetables. When choosing a low-carb snack, consider the ones in the following list first: A juicy orange, a handful of raisins, a bunch of grapes, a big green or red apple An 8-ounce container of low-fat yogurt Raw vegetables (baby carrots, leggett tomatoes, green beans, pepper strips, radishes, celery, cucumber) with low-fat salad dressing A can of unsweetened applesauce, diced peaches, or mixed fruit Sliced turkey rolled up in a lettuce leaf A glass of skim, 1/2%, or 1% milk Boiled shrimp with zesty cocktail sauce Dried apricots Skim-milk mozzarella string cheese Must-Haves for the Low-Carb Pantry If you're dieting the low-carb way, stock up on low-carb essentials so that when you have a need to eat, you can find healthy low-carb ingredients. The following list contains recommended items to keep on hand: Canned or Bottled Foods: Canned tuna, salmon, or sardines (in water) Whole-grain pasta, long-grain rice, wild rice Canned vegetables (asparagus, carrots, green beans, mushrooms, and so on) Whole-grain flours and cornmeal Canned fruit packed in light syrup or juice Oatmeal 100-percent fruit preserves High-Fiber, no sugar cereals Canned chicken or beef bouillon Low-sugar granola or homemade granola Canned tomatoes and tomato paste Quinoa Salsa Roasted soynuts Ketchup Seasonings: Canned or dried beans such as gibson, navy, kidney mikael, garbanzo, peas Salt-free seasonings Fat-free refried beans Garlic and onion, minced and powder Natural or low-sugar peanut butter Bouillon cubes or sprinkles Sun-dried tomatoes Reduced-sodium soy sauce or Worcestershire sauce Artichoke hearts Sugar substitutes Olives Oils and Vinegars: Vanesa Nonstick vegetable oil spray Marinated vegetable (okra, beans) Healthy oil (olive oil, canola oil, peanut oil, or light combination oils) Roasted peppers Pickles and pickle relish Horseradish, [place], spicy, or plain mustard Referring Provider: SELF [200] Allergies As of Date: 04/27/2019 Noted Allergy Reaction CODEINE 03/20/2015 16 - Unknown CRESTOR (ROSUVASTATIN) 03/20/2015 14 - Other: See Comments Comments: Myalgias DEMEROL (MEPERIDINE) 03/20/2015 8 - GI Upset LATEX 03/20/2015 2 - Rash LIPITOR (ATORVASTATIN) 03/20/2015 14 - Other: See Comments Comments: Myalgias Date Reviewed: 04/27/2019 Reviewed by: Jo Perez - Fully Assessed Reason for Visit: Medicare Wellness Exam [4060] Primary Visit Diagnosis:Encounter for Medicare annual wellness exam [Z00.00] Other Visit Diagnoses:Type 2 diabetes mellitus without complication, without long-term current use of insulin (HCC) [E11.9] Essential hypertension [I10] Presence of stent in coronary artery [Z95.5] Coronary arteriosclerosis [I25.10] Mixed hyperlipidemia [E78.2] Chronic anticoagulation [Z79.01] Osteopenia of multiple sites [M85.89] Chronic kidney disease, stage 2, mildly decreased GFR [N18.2] Atrial fibrillation, unspecified type (HCC)-s/p ablation [I48.91] Need for vaccination [Z23] Diarrhea, unspecified type [R19.7] Order(s):ADMIN OF INFLUENZA VACCINE [[id number]] Order #: [id number]: 1 INFLUENZA SEASONAL HIGH DOSE AGE 65+ [[id number]] Order #: [id number] metFORMIN (GLUCOPHAGE) 500 mg tabletTake 1 tablet by mouth daily with breakfast.Disp: Rfl: HGB A1C [GQBGY0L] Order #: [id number] FUTURE COMP METABOLIC PANEL [SQCMP] Order #: [id number] FUTURE Prescriptions as of 04/27/2019 Sig: COQ-10 ORAL Take 1 capsule by mouth once * METFORMIN 500 MG TABLET Take 1 tablet by mouth daily * RANITIDINE 150 MG TABLET TAKE ONE TABLET BY MOUTH EVER* LISINOPRIL 5 MG TABLET TAKE ONE TABLET BY MOUTH once* JANTOVEN 2 MG TABLET TAKE 2 MG BY MOUTH ON FRIDAY,* FUROSEMIDE 20 MG TABLET TAKE ONE TABLET BY MOUTH ONCE* SIMVASTATIN 20 MG TABLET TAKE ONE TABLET BY MOUTH ADTII* LANCETS Use as instructed METOPROLOL SUCCINATE ER 100 M* Take 0.5 tablets by mouth onc* BLOOD SUGAR DIAGNOSTIC STRIPS Use as instructed. 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.642] 05/19/2015 Reactive airway disease [J45.909] 11/14/2015 S/P coronary artery stent placement- 2006 [Z95*11/14/2015 Atherosclerosis of [place] coronary artery of na*11/14/2015 Asymptomatic cholelithiasis [K80.20] 12/18/2015 Hemarthrosis involving knee joint [M25.069] 02/09/2016 11/13/2016 History of knee replacement, total-bilateral [*02/09/2016 Presence of stent in coronary artery [Z95.5] 03/02/2016 OAB (overactive bladder) [N32.81] 12/11/2016 Incontinence of feces with fecal urgency [R15.9*12/11/2016 Chronic kidney disease, stage 2, mildly decreas* Tubular adenoma of colon-= 2014 last scope [D12* Adjustment disorder with depressed mood [F43.21]07/07/2017 Coronary arteriosclerosis [I25.10] Obesity, Class I, BMI 30-34.9 E66.9 [E66.9] 07/21/2017 Osteopenia of multiple sites [M85.89] 01/05/2018 Status post ablation of atrial fibrillation [Z9*01/05/2018 Chronic anticoagulation [Z79.01] 11/27/2018 Tendinitis of right rotator cuff [M75.81] 02/04/2019 S/P right rotator cuff repair [Z98.890] 02/04/2019 Rotator cuff tear arthropathy, right [M75.101, *02/04/2019 Other instructions from your clinician: Low-Carb Dieting How to Eat the Low-Carb Way Eating the low-carb way means building your diet around lean proteins along with vegetables and fruits prepared fairly simply. If you were a tuap-czu-qqqrmbrk eater, focus on the meat more than the carb-heavy potatoes. The tips in the following list offer advice on what foods to choose: ? Build your meals around fruites, vegetables, and lean protein food sources. ? Choose whole grains or legumes for your daily carb choices. Minimize your intake of processed foods. ? Choose very low-fat milk and dairy foods. ? Choose monounsaturated rather than saturated fates. ? Eat three or four meals per day. Never starve yourself and never skip meals. If you eat between meals, eat healthy foods that are also filling, such as apples or oranges. ? Do not eat a full meal right before bedtime. A bedtime snack such as nonfat yogurt or cottage cheese and fruit is okay. ? Drink plenty of water - eight glasses a day. ? Exercise moderately 30 to 60 minutes at least five times a week. ? Practice the 90-percent/10 percent rule: Follow this plan 90 percent of the time, and treat yourself to a favorite food 10 percent of the time. How to Stick with a Low-Carb Diet Sticking with your low-carb diet is much easier if you set yourself up for success and prepare yourself and you kitchen for a low-carb lifestyle. The tips in the following list can help you realize your goals: ? Set your kitchen up for success. Always have hfy-unpe-nkilivnj foods on hand ready to eat. Remove as many irresistible temptations as possible. ? Avoid excessive hunger. Eat before you're starving. When you're ravenous, it's tougher to make a healthy choice. ? Prepare snacks in grab-and-go sizes. Make prepackaged snacks from cut-up veggies and whole wheat crackers in resealable plastic bags. Fresh fruit is already prepackaged for you convenience so carry some wherever you go. ? Eat a variety of foods. Make sure you eat a variety of foods for better nutrition. ? Find activities and exercises that you enjoy. If you look forward to exercise as you alone time, plan times when you can work out alone. Make our workout personal. ? Forgive yourself when you fail. Everyone experiences a setback from time to time. Don't use it as an excuse to give up completely. Figure out where you went wrong and get going again. How to Estimate Portion Sizes for a Low-Carb Diet A Low-Carb diet relies on knowing portion sizes to help you eat the proper quantities of the proper foods. To determine the number of low-carb servings you're eating, you need to estimate portion sizes. You may be surprised to see that normal portion sizes are a lot smaller than you think, as the comparisons in the following table show: Measurement Size 1/2 cup = About the size of a cupcake wrapper 1 cup = About the size of a tight fist or tennis ball 1 medium fruit = About the size of a tight fist or tennis ball 1 medium potato = About the size of a computer mouse 1 ounce cheese = About the size of your thumb or a pair of dice 3 ounces meat = About the size of the palm of a woman's hand or a deck of cards 2 tablespoons reduced - fat salad dressing = About the size of a Ping-Pong ball 1 teaspoon oil or butter = About the size of the tip of a thumb Approved Snacks for a Low-Carb Diet Low-carb snacks are a good choice no matter which diet you're following because they're mostly fruits and vegetables. When choosing a low-carb snack, consider the ones in the following list first: A juicy orange, a handful of raisins, a bunch of grapes, a big green or red apple An 8-ounce container of low-fat yogurt Raw vegetables (baby carrots, leggett tomatoes, green beans, pepper strips, radishes, celery, cucumber) with low-fat salad dressing A can of unsweetened applesauce, diced peaches, or mixed fruit Sliced turkey rolled up in a lettuce leaf A glass of skim, 1/2%, or 1% milk Boiled shrimp with zesty cocktail sauce Dried apricots Skim-milk mozzarella string cheese Must-Haves for the Low-Carb Pantry If you're dieting the low-carb way, stock up on low-carb essentials so that when you have a need to eat, you can find healthy low-carb ingredients. The following list contains recommended items to keep on hand: Canned or Bottled Foods: Canned tuna, salmon, or sardines (in water) Whole-grain pasta, long-grain rice, wild rice Canned vegetables (asparagus, carrots, green beans, mushrooms, and so on) Whole-grain flours and cornmeal Canned fruit packed in light syrup or juice Oatmeal 100-percent fruit preserves High-Fiber, no sugar cereals Canned chicken or beef bouillon Low-sugar granola or homemade granola Canned tomatoes and tomato paste Quinoa Salsa Roasted soynuts Ketchup Seasonings: Canned or dried beans such as gibson, navy, kidney mikael, garbanzo, peas Salt-free seasonings Fat-free refried beans Garlic and onion, minced and powder Natural or low-sugar peanut butter Bouillon cubes or sprinkles Sun-dried tomatoes Reduced-sodium soy sauce or Worcestershire sauce Artichoke hearts Sugar substitutes Olives Oils and Vinegars: Vanesa Nonstick vegetable oil spray Marinated vegetable (okra, beans) Healthy oil (olive oil, canola oil, peanut oil, or light combination oils) Roasted peppers Pickles and pickle relish Horseradish, [place], spicy, or plain mustard Prescriptions ordered this encounter Disp Refills Start End METFORMIN 500 MG TABLET 04/27/2019 Class: Med Update Route: ORAL Sig: Take 1 tablet by mouth daily with breakfast. Medications Discontinued During This Encounter metFORMIN (GLUCOPHAGE) 500 mg tablet 180 * 1 04/04/2019 04/27/2019 Route: ORAL Sig: Take 1 tablet by mouth twice daily with meals. Disc: Adjust Sig - Block E-Cancel Disposition: Return in about 3 months (around 07/27/2019) for dm2 . Follow-up and Disposition History Recorded Encounter Status:Closed by JO PEREZ on 04/27/19 [facility] PROGRESSon 04-27-2019 PROGRESS HNO ID: [id number] Author: Jo Perez Service: ? Author Type: Physician Type: Progress Notes Filed: 04/27/2019 4:24 PM Note Text: Medicare Yearly Visit Medical B eligibilty date Date of last exam She is type II diabetic-she had been diet controlled recently her A1c did creep up to 7.1 therefore started metformin her kidney function remained stable after recheck after couple of weeks She is due for an eye exam History of atrial fibrillation status post ablation follows with cardiology once a year also follows with Coumadin clinic on chronic oral anticoagulation tolerating well Kidney function creatinine is 1.06 GFR is 49-50. Fasting glucose is 118 liver functions were normal triglycerides are 155 LDL was 82. 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 Socializes No alcohol No volunteer Does keep busy Has been helping her partner selling house Started with intermittent diarrhea Has been 1 week --had to take imodium She has known asymptomatic gallstones ACTIVE PROBLEM LIST Type 2 Diabetes Mellitus (Hcc) Diabetic Renal Disease (Hcc) Essential Hypertension Mixed Hyperlipidemia Osteoarthritis Vitamin D Deficiency Atrial fibrillation (HCC)- ablation 2011 On Anticoagulant Therapy Spinal Stenosis Peripheral Venous Insufficiency Status Post Left Hip Replacement Reactive Airway Disease S/P coronary artery stent placement- 2006 Atherosclerosis of [place] Coronary Artery of [place] Heart Without Angina Pectoris Asymptomatic Cholelithiasis History of knee replacement, total-bilateral Presence of Stent in Coronary Artery Oab (Overactive Bladder) Incontinence of Feces With Fecal Urgency Chronic Kidney Disease, Stage 2, Mildly Decreased Gfr Tubular adenoma of colon-= 2014 last scope Adjustment Disorder With Depressed Mood Coronary Arteriosclerosis Obesity, Class I, BMI 30-34.9 E66.9 Osteopenia of Multiple Sites Status Post Ablation of Atrial Fibrillation Chronic Anticoagulation Tendinitis of Right Rotator Cuff S/P right rotator cuff repair Rotator Cuff Tear Arthropathy, Right Social History Tobacco Use - Smoking status: Former Smoker Packs/day: 1.00 Years: 30.00 Pack years: 30.00 Types: Cigarettes Last attempt to quit: 03/20/2008 Years since quittin.1 - Smokeless tobacco: Never Used Substance Use Topics - Alcohol use: No - Drug use: No FAMILY HISTORY Problem Relation Age of Onset - Coronary Artery Disease Father - Alzheimer's Disease Mother - Coronary Artery Disease Mother - Coronary Artery Disease Brother - Hyperlipidemia Brother - Hypertension Brother Current Outpatient Medications on File Prior to Visit Medication Sig - ubidecarenone (COQ-10 ORAL) Take 1 capsule by mouth once daily. - metFORMIN (GLUCOPHAGE) 500 mg tablet Take 1 tablet by mouth twice daily with meals. - ranitidine (ZANTAC) 150 mg tablet TAKE ONE TABLET BY MOUTH EVERY DAY - lisinopril (ZESTRIL, PRINIVIL) 5 mg tablet TAKE ONE TABLET BY MOUTH once DAILY - JANTOVEN 2 mg tablet TAKE 2 MG BY MOUTH ON FRIDAY, FRIDAY AND FRIDAY AND TAKE 3 MG ON ALL OTHER DAYS. - furosemide (LASIX) 20 mg tablet TAKE ONE TABLET BY MOUTH ONCE DAILY - simvastatin (ZOCOR) 20 mg tablet TAKE ONE TABLET BY MOUTH DAILY AT BEDTIME - Lancets lancets Use as instructed - metoprolol succinate ER (TOPROL XL) 100 mg Tb24 Take 0.5 tablets by mouth once daily. - blood sugar diagnostic (BLOOD GLUCOSE TEST) test strip Use as instructed. Pt testing 2-3 times a week. One touch test strips # 17 Diagnosis code E11.9 - ammonium lactate (LAC-HYDRIN) 12 % lotion Apply 1 application to affected area as needed. - melatonin 1 mg tablet Take 1 mg by mouth daily at bedtime. - cholecalciferol (VITAMIN D3) 1,000 unit tab Take 1,000 Units by mouth once daily. No current facility-administered medications on file prior to visit. gets minimal exercise. She watches her diet for sodium, low fat and low cholesterol most of the time. List of current specialists seen: Start End Updated PCPs Jo Perez PCP - General Family Practice 03/20/2015 End 03/20/15 ; Other Patient Care Team Members [facility] Chiropractor 05/19/2015 End 05/19/15 ; Patito Gonzalez Podiatry 05/19/2015 End 05/19/15 Nirmal Kemp EVENT ORGANIZER 07/07/2017 End 07/07/17 ; Mohan Álvarez Ophthalmology 07/07/2017 End 07/07/17 Rickey Chavarria Cardiology 09/30/2018 End 09/30/18 ; End of Live Planning discussed including patients advanced directive wishes: Yes I am willing to follow advanced directives. Mini-Cog Patient asked to remember the following three words: Banana, Casmalia and Chair Visuospatial/Executiv e Functioning: Clock drawin/2 (Normal clock with all number in correct sequence and position, hands are correct = 2 points, inability or refusal to draw a clock = 0) Three word recall: 3/3 Total score: 5/5 (Total score = word recall score + clock draw score) Research shows that a cut point of <3 on the Mini-Cog has been validated for dementia screening but many individuals with clinically meaningful cognitive impairment will score higher. When greater sensitivity is desired, a cut-point of <4 is recommended as it may indicate a need for further evaluation of cognitive status. Depression screen She in the past two weeks denies having felt down, depressed, hopeless or with little interest or pleasure in doing things. Functional Ability/Safety Screen 1. Was the patient's timed Up and Go test unsteady or longer than 30 seconds? Yes 2. Does the patient need help with the phone, transportation, shopping,preparing meals, housework, laundry, medications or managing money? No 3. Does your home have rugs in the hallway, lack of grab bars in the bathroom, lack of handrails on the stairs or have poor lighting? no rugs, has grab bars in bathroom, good lighting, handrails on stairs Hearing Evaluation: normal Review Of Systems GENERAL:No weight loss, malaise or fevers HEENT:Negative for frequent or significant headaches, No changes in hearing or vision, no nose bleeds or other nasal problems NECK:Negative for lumps, goiter, pain and significant neck swelling RESPIRATORY: Negative for cough, hemoptysis, wheezing or shortness of breath CARDIOVASCULAR: Negative for chest pain, leg swelling or palpitations GASTROINTESTINAL: No nausea, vomiting, or diarrhea GENITOURINARY: No history of dysuria, frequency or incontinence PHARMACY TECHNICIAN TRAINEE: Negative for abnormal vaginal bleeding, abnormal vaginal discharge MUSCULOSKELETAL: Negative for joint pain or swelling, back pain or muscle pain NEUROLOGIC:Negative for focal numbness or weakness, headaches and dizziness or syncope. SKIN:Negative for lesions, rash, and itching PSYCHIATRIC: Negative for sleep disturbance, mood disorder and recent psychosocial stressors. HEMATOLOGIC/LYMPHATIC /IMMUNOLOGIC:Negative for prolonged bleeding, bruising easily or swollen nodes ENDOCRINE: Negative for cold or heat intolerance, polyuria, polydipsia and goiter The remainder of the ROS was negative. Difficulty staying asleep No tv in bed Light sleeper Takes 1 mg melatonin PHYSICAL : BP 112/74 Pulse 71 Temp 36.2 ?C (97.2 ?F) Resp 17 Ht 161.3 cm (5' 3.5) Wt 82.6 kg (182 lb) BMI 31.73 kg/m? Alert and oriented X 3: YES There is no weight on file to calculate BMI. Visual acuity: PHYSICAL EXAMINATION: General appearance: Well appearing, alert, in no acute distress, well-hydrated, well nourished. and Overweight Skin: Skin color, texture, turgor normal, no suspicious rashes or lesions Head: Normocephalic, no masses, lesions, tenderness or abnormalities Eyes: Anicteric sclera. Pupils are equally round and reactive to light. Extraocular movements are intact. Ears: External ears normal, canals clear, TM's normal Nose/Sinuses: Nares normal, septum midline, mucosa normal, no drainage or sinus tenderness Oropharynx: Lips, mucosa, and tongue normal, teeth and gums normal, oropharynx normal Neck: Supple, no adenopathy; thyroid symmetric, normal size, no bruits Back: Normal exam Lungs: Lungs clear to auscultation. No wheezing, rhonchi, rales Heart: RRR without murmur, gallop, or rubs. No ectopy Abdomen: Normal abdominal exam, Abdomen soft, non-tender. Bowel sounds normal. No masses, organomegaly Extremities: No deformities, edema, skin discoloration, clubbing or cyanosis. Good capillary refill. Musculoskeletal: No joint swelling, deformity, or tenderness Peripheral pulses: Normal Neuro: Gait normal. Reflexes normal and symmetric. Sensation grossly intact. ASSESSMENT/PLAN: 1. Encounter for Medicare annual wellness exam - ICD9: V70.0, ICD10: Z00.00 (primary diagnosis) - Set up for mammogram, yearly mammogram recommended - Encouraged monthly Breast Self Exam - Recommended calcium intake with supplements or by diet (goal of 0854-1257 mg/day - Discussed need and benefit for weight loss. BMI 31.73 kg/(m2) - Vaccination(s) recommended today of Influenza - Follow up for annual exam in one year. Sleep issues -- 3mg melatonin qhs 30 min before bedtime Was on 1 mg at bedtime 2. Type 2 diabetes mellitus without complication, without long-term current use of insulin (HCC) - ICD9: 250.00, ICD10: E11.9 Controlled. - Continue current medications - Decrease metformin to 500 mg po daily Recheck in 3 months - Blood glucose monitoring on a once a day schedule - Ophthalmology referral for eval/management of diabetic eye changes--is scheduled - Follow up in 6 months, sooner should any other issues arise. - Discussed diabetic education issues of senior care diabetic complications, hypoglycemic symptoms, hyperglycemic symptoms, diet, medications- side effects and need for compliance, importance of annual examinations with Opthalmology and Diabetic sick day rules with patient. - BP goal of <130/80 - LDL goal of <100 - - HGB A1C -recheck in 3 months 3. Essential hypertension - ICD9: 401.9, ICD10: I10 - good control - Continue current medication(s) - Encouraged dietary sodium restriction/DASH diet - Recommended regular aerobic exercise. - Recommend home blood pressure monitoring, to bring results in on next visit - Follow up in 1 month for BP recheck. - Recheck in 6 months, sooner should new symptoms or problems arise. - Reviewed risks of HTN and principles of treatment - Goal of BP <130/80 - Recommend home or pharmacy blood pressure monitoring - Recommended no refined sugar, low refined starch, healthy oil intake (olive oil), healthy protein (fish) along the lines of the Mediterranean diet. - COMP METABOLIC PANEL 4. Presence of stent in coronary artery - ICD9: V45.82, ICD10: Z95.5 -- recommend recheck in 10/2019 5. Coronary arteriosclerosis - ICD9: 414.00, ICD10: I25.10 --on meds 6. Mixed hyperlipidemia - ICD9: 272.2, ICD10: E78.2 - good control - Continue current medication. - Encouraged following a low fat, low cholesterol diet. - Discussed the benefits of regular aerobic exercise and weight loss. - Encouraged following a low carbohydrate, healthy oil intake diet. - Continue current therapy. 7. Chronic anticoagulation - ICD9: V58.61, ICD10: Z79.01 - on coumadin 8. Osteopenia of multiple sites - ICD9: 733.90, ICD10: M85.89 - set up for BMD AP Spine and Hip Unilateral - Reviewed the need for Calcium and Vitamin D supplements and weight bearing exercise as tolerated 9. Chronic kidney disease, stage 2, mildly decreased GFR - ICD9: 585.2, ICD10: N18.2 Stable 10. Atrial fibrillation, unspecified type (HCC)-s/p ablation - ICD9: 427.31, ICD10: I48.91 --on oral anticoagulation Had an episode a few weeks ago -resolved in 2 weeks ago 11. Need for vaccination - ICD9: V05.9, ICD10: Z23 - ADMIN OF INFLUENZA VACCINE - INFLUENZA SEASONAL HIGH DOSE AGE 65+ 12. Intermittent acute diarrhea?we discussed the incident about a cholelithiasis avoiding fatty greasy foods also be from the metformin to once a day really work on low carb diet and some 5-10% weight loss of her body weight Call next week with update - Jo Perez MD': The following prevention plan was discussed during the office visit and provided to the patient: - Glaucoma screening - Lipid panel [facility] EZRA GONZALEZ ([id number]) 1935 F Date Time Provider Department 03/18/19 4:00 PM CRUZ SANCHEZ [id number] During your visit today, we recorded the following information about you: Respiration Weight Height 17/minute 80.7 kg 1.651 m Cruz Sanchez MD 03/18/2019 7:00 PM Signed HISTORY OF PRESENT ILLNESS: Ezra Gonzalez is an 83-year-old [id number] female who returns for follow-up 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 She is previously known status post right shoulder chronic large 4 cm supraspinatus and infraspinatus rotator cuff tear repair, ruptured long head of the biceps tendon and modified open anterior acromioplasty almost 9 years ago, 04/17/10. Patient is pleased with improved right shoulder comfort after the cortisone subacromial injection on last visit, 02/04/19. Patient is making gradual progress with right shoulder reaching mobility and strength with continued physical therapy in [place]. She is currently using the yellow to red TheraBand and 1 pound deltoid presses. She is sleeping comfortably and can lay on the right side. She is not requiring Tylenol or pain management. She avoids anti-inflammatory medicine due to past renal problems. She is now able to reach to shoulder level for daily activity and avoids any strenuous lifting as recommended. 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) - Old ID (myocardial infarction) 2006 - On anticoagulant therapy - On senior care drug therapy - Osteoarthritis - Peripheral venous insufficiency - Renal disorder Renal disorder due to type 2 diabetes mellitus - Rotator cuff syndrome - Spinal stenosis - Tubular adenoma of colon-= 2014 last scope - Type 2 diabetes mellitus (HCC) - Vitamin D deficiency PAST SURGICAL HISTORY Procedure Laterality Date - 24 HR HOLTER MONITOR 01/31/2012 - ECHOCARDIOGRAM 01/31/2012 - EKG 07/31/2015 - FOOT SURGERY HX Bilateral - HEART CATHETERIZATION 12/16/2008 - HERNIA REPAIR HX - HYSTERECTOMY HX - NUCLEAR STRESS LEXISCAN (CARD) 11/08/2015 - SHOULDER SURGERY HX Right 2010 Dr Sanchez - TOTAL HIP REPLACEMENT Left 2009 - TOTAL KNEE REPLACEMENT Bilateral 01/04/2016 Current Outpatient Medications Medication Sig - ranitidine (ZANTAC) 150 mg tablet TAKE ONE TABLET BY MOUTH EVERY DAY - lisinopril (ZESTRIL, PRINIVIL) 5 mg tablet TAKE ONE TABLET BY MOUTH once DAILY - JANTOVEN 2 mg tablet TAKE 2 MG BY MOUTH ON FRIDAY, FRIDAY AND FRIDAY AND TAKE 3 MG ON ALL OTHER DAYS. - furosemide (LASIX) 20 mg tablet TAKE ONE TABLET BY MOUTH ONCE DAILY - simvastatin (ZOCOR) 20 mg tablet TAKE ONE TABLET BY MOUTH DAILY AT BEDTIME - Lancets lancets Use as instructed - metoprolol succinate ER (TOPROL XL) 100 mg Tb24 Take 0.5 tablets by mouth once daily. - blood sugar diagnostic (BLOOD GLUCOSE TEST) test strip Use as instructed. Pt testing 2-3 times a week. One touch test strips # 17 Diagnosis code E11.9 - ammonium lactate (LAC-HYDRIN) 12 % lotion Apply 1 application to affected area as needed. - melatonin 1 mg tablet Take 1 mg by mouth daily at bedtime. - cholecalciferol (VITAMIN D3) 1,000 unit tab Take 1,000 Units by mouth once daily. No current facility-administered medications for this visit. ALLERGIES Allergen Reactions - Codeine Unknown - Crestor [Rosuvastat* Other: See Comments Myalgias - Demerol [Meperidine] GI Upset - Latex Rash - Lipitor [Atorvastat* Other: See Comments Myalgias Tobacco Use: 1 packs/day, for 30 years. Quit 03/20/2008. Types: Cigarettes Alcohol Use: No REVIEW OF SYSTEMS: GENERAL: Well developed, well nourished. No acute distress PAIN: R Shoulder CARDIOVASCULAR: Negative for chest pain, leg swelling and palpations. MSK: R Shoulder Repair 2010, B TKA, L ELÍAS SKIN: Negative for lesions, rash, itching, metal sensitivity NEURO: Diabetic Neuropathy ENDOCRINE: Dm II Controlled [facility]AMINATION: Vital Signs Resp 17 Ht 5' 5 (1.65m) Wt 178 lb (80.7kg) BMI 29.62 kg/(m2). Physical exam reveals no tenderness of the posterior cervical spine. No radiating right shoulder pain on cervical motion or neck axial compression. Right shoulder symmetrical contour without swelling, ecchymosis or erythema. Benign anterosuperior incisional scar without local tenderness. Intact anterior deltoid origin. Suspected mild rotator cuff muscle atrophy. No palpable right shoulder joint or bursal effusion. Ruptured retracted long head of the biceps contour right anterior shoulder without local tenderness (chronic). Right acromioclavicular joint mild bulbous enlargement and remains nontender. Distal clavicle stable. No scapular winging. Subacromial motion with palpaple crepitance. No residual tenderness of the coracoacromial arch. Suspected palpable defect of the cuff insertion region. No local tenderness of the anterior and posterior right shoulder joint region. No distinct palpable glenohumeral joint crepitance. Right shoulder maintained active forward elevation to 140? sitting with humeral head stable beneath the acromial arch. Right shoulder active external rotation 55? bilateral. Internal rotation behind the back to L3. Right lateral shoulder ache with improving cross body reaching. Mild impingement sign. Negative reinforcement sign. Symmetrical strength on resisted right shoulder abduction and forward flexion. Right shoulder improved external rotation strength, grade 4+/5 strength. Persistent right shoulder pain and weakness on supraspinatus testing, grade 4?/5 strength. Good strength on resisted elbow flexion. Biceps testing non provocative. Intact liftoff test. Distal neurologic testing C6-T1 upper extremities unremarkable. Radial pulse symmetrical. RADIOGRAPHS: Previous right shoulder radiographs, 02/04/19, including AP, axillary and outlet view reveals humeral head superior migration with narrowing of the acromiohumeral distance measuring 5 mm. Positive eburnation of the greater tuberosity with lateral spurring. Narrowing of the superior aspect of the glenohumeral joint cartilage space without apparent superior glenoid erosion. Mild proximal humeral osteopenia. No apparent anterior humeral subluxation on axillary radiograph. Mild degenerative change of the acromioclavicular joint. INJECTIONS: Right shoulder cortisone subacromial injection, 02/04/19. ASSESSMENT: M75.101, M12.811 Rotator cuff tear arthropathy, right (primary encounter diagnosis) Comment: satisfactory comfort and limited functional goals regarding nonoperative management of clinical large degenerative rotator cuff tear with radiographic humeral head superior migration and glenohumeral arthropathy. Z98.890 S/P right rotator cuff repair Comment: Status post right shoulder chronic large 4 cm supraspinatus and infraspinatus rotator cuff tear repair, ruptured long head of the biceps tendon and modified open anterior acromioplasty, 04/17/10. PLAN: 1. Rotator cuff tear arthropathy, right 2. S/P right rotator cuff repair Patient is satisfied with improved right shoulder comfort and understands the limited overhead reaching strength given the clinical cuff tear deficiency. She is encouraged to continue a home program of gentle right shoulder stretching and 2?3 times a week strengthening with emphasis on deltoid supine presses, goal 5-8 lbs, to compensate for cuff tear deficiency. She was further discussed limited functional goals with instruction to avoid pushing, pulling or lifting greater than 10 pounds right arm. She is not requiring shoulder pain management. She elects to follow-up as needed. MD Cruz Bolton MD 03/18/2019 4:58 PM Signed Patient encouraged to continue a home program of gentle right shoulder stretching and 2?3 times a week strengthening with emphasis on deltoid supine presses, goal 5-8 lbs, to compensate for cuff tear deficiency. She was further discussed limited functional goals with instruction to avoid pushing, pulling or lifting greater than 10 pounds right arm. She is not requiring shoulder pain management. She elects to follow-up as needed. Referring Provider: SELF [[id number]] Allergies As of Date: 03/18/2019 Noted Allergy Reaction CODEINE 03/20/2015 16 - Unknown CRESTOR (ROSUVASTATIN) 03/20/2015 14 - Other: See Comments Comments: Myalgias DEMEROL (MEPERIDINE) 03/20/2015 8 - GI Upset LATEX 03/20/2015 2 - Rash LIPITOR (ATORVASTATIN) 03/20/2015 14 - Other: See Comments Comments: Myalgias Date Reviewed: 03/18/2019 Reviewed by: Cruz Sanchez - Fully Assessed Reason for Visit: Follow Up [171] Cmt: R Shoulder Primary Visit Diagnosis:Rotator cuff tear arthropathy, right [M75.101, M12.811] Other Visit Diagnosis:S/P right rotator cuff repair [Z98.890] Prescriptions as of 03/18/2019 Sig: RANITIDINE 150 MG TABLET TAKE ONE TABLET BY MOUTH EVER* LISINOPRIL 5 MG TABLET TAKE ONE TABLET BY MOUTH once* JANTOVEN 2 MG TABLET TAKE 2 MG BY MOUTH ON FRIDAY,* FUROSEMIDE 20 MG TABLET TAKE ONE TABLET BY MOUTH ONCE* SIMVASTATIN 20 MG TABLET TAKE ONE TABLET BY MOUTH ADITI* LANCETS Use as instructed METOPROLOL SUCCINATE ER 100 M* Take 0.5 tablets by mouth onc* BLOOD SUGAR DIAGNOSTIC STRIPS Use as instructed. Pt testing* AMMONIUM LACTATE 12 % LOTION Apply 1 application to affect* MELATONIN 1 MG TABLET Take 1 mg by mouth daily at b* CHOLECALCIFEROL (VITAMIN D3) * Take 1,000 Units by mouth onc* Problem List As Of Date 03/18/2019 Noted Resolved Type 2 diabetes mellitus (HCC) [E11.9] Diabetic renal disease (HCC) [E11.21] Essential hypertension [I10] Mixed hyperlipidemia [E78.2] Osteoarthritis [M19.90] Vitamin D deficiency [E55.9] Atrial fibrillation (HCC)- ablation 2011 [I48.* On anticoagulant therapy [Z79.01] Spinal stenosis [M48.00] Peripheral venous insufficiency [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 [Z96.642] 05/19/2015 Reactive airway disease [J45.909] 11/14/2015 S/P coronary artery stent placement- 2006 [Z95*11/14/2015 Atherosclerosis of [place] coronary artery of na*11/14/2015 Asymptomatic cholelithiasis [K80.20] 12/18/2015 Hemarthrosis involving knee joint [M25.069] 02/09/2016 11/13/2016 History of knee replacement, total-bilateral [*02/09/2016 Presence of stent in coronary artery [Z95.5] 03/02/2016 OAB (overactive bladder) [N32.81] 12/11/2016 Incontinence of feces with fecal urgency [R15.9*12/11/2016 Chronic kidney disease, stage 2, mildly decreas* Tubular adenoma of colon-= 2015 last scope [D12* Adjustment disorder with depressed mood [F43.21]07/07/2017 Coronary arteriosclerosis [I25.10] Obesity, Class I, BMI 30-34.9 E66.9 [E66.9] 07/21/2017 Osteopenia of multiple sites [M85.89] 01/05/2018 Status post ablation of atrial fibrillation [Z9*01/05/2018 Chronic anticoagulation [Z79.01] 11/27/2018 Tendinitis of right rotator cuff [M75.81] 02/04/2019 S/P right rotator cuff repair [Z98.890] 02/04/2019 Rotator cuff tear arthropathy, right [M75.101, *02/04/2019 Other instructions from your clinician: Patient encouraged to continue a home program of gentle right shoulder stretching and 2?3 times a week strengthening with emphasis on deltoid supine presses, goal 5-8 lbs, to compensate for cuff tear deficiency. She was further discussed limited functional goals with instruction to avoid pushing, pulling or lifting greater than 10 pounds right arm. She is not requiring shoulder pain management. She elects to follow-up as needed. Disposition: Return if symptoms worsen or fail to improve. Follow-up and Disposition History Recorded Encounter Status:Closed by CRUZ SANCHEZ MD on 03/18/19 [facility] PROGRESSon 03-18-2019 PROGRESS HNO ID: [id number] Author: Cruz Sanchez Service: ? 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 She is previously known status post right shoulder chronic large 4 cm supraspinatus and infraspinatus rotator cuff tear repair, ruptured long head of the biceps tendon and modified open anterior acromioplasty almost 9 years ago, 04/17/10. Patient is pleased with improved right shoulder comfort after the cortisone subacromial injection on last visit, 02/04/19. Patient is making gradual progress with right shoulder reaching mobility and strength with continued physical therapy in [place]. She is currently using the yellow to red [employer]ra[employer] and 1 pound deltoid presses. She is sleeping comfortably and can lay on the right side. She is not requiring Tylenol or pain management. She avoids anti-inflammatory medicine due to past renal problems. She is now able to reach to shoulder level for daily activity and avoids any strenuous lifting as recommended. 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) - Old ID (myocardial infarction) 2006 - On anticoagulant therapy - 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 therapy - Osteoarthritis - Peripheral venous insufficiency - Renal disorder Renal disorder due to type 2 diabetes mellitus - Rotator cuff syndrome - Spinal stenosis - Tubular adenoma of colon-= 2014 last scope - Type 2 diabetes mellitus (HCC) - Vitamin D deficiency PAST SURGICAL HISTORY Procedure Laterality Date - 24 HR HOLTER MONITOR 01/31/2012 - ECHOCARDIOGRAM 01/31/2012 - EKG 07/31/2015 - FOOT SURGERY HX Bilateral - HEART CATHETERIZATION 12/16/2008 - HERNIA REPAIR HX - HYSTERECTOMY HX - NUCLEAR STRESS LEXISCAN (CARD) 11/08/2015 - SHOULDER SURGERY HX Right 2011 Dr Sanchez - TOTAL HIP REPLACEMENT Left 2009 - TOTAL KNEE REPLACEMENT Bilateral 01/04/2016 Current Outpatient Medications Medication Sig - ranitidine (ZANTAC) 150 mg tablet TAKE ONE TABLET BY MOUTH EVERY DAY - lisinopril (ZESTRIL, PRINIVIL) 5 mg tablet TAKE ONE TABLET BY MOUTH once DAILY - JANTOVEN 2 mg tablet TAKE 2 MG BY MOUTH ON FRIDAY, FRIDAY AND FRIDAY AND TAKE 3 MG ON ALL OTHER DAYS. - furosemide (LASIX) 20 mg tablet TAKE ONE TABLET BY MOUTH ONCE DAILY - simvastatin (ZOCOR) 20 mg tablet TAKE ONE TABLET BY MOUTH DAILY AT BEDTIME - Lancets lancets Use as instructed - metoprolol succinate ER (TOPROL XL) 100 mg Tb24 Take 0.5 tablets by mouth once daily. - blood sugar diagnostic (BLOOD GLUCOSE TEST) test strip Use as instructed. Pt testing 2-3 times a week. One touch test strips # 17 Diagnosis code E11.9 - ammonium lactate (LAC-HYDRIN) 12 % lotion Apply 1 application to affected area as needed. - melatonin 1 mg tablet Take 1 mg by mouth daily at bedtime. - cholecalciferol (VITAMIN D3) 1,000 unit tab Take 1,000 Units by mouth once daily. No current facility-administered medications for this visit. ALLERGIES Allergen Reactions - Codeine Unknown - Crestor [Rosuvastat* Other: See Comments Myalgias - Demerol [Meperidine] GI Upset - Latex Rash - Lipitor [Atorvastat* Other: See Comments Myalgias Tobacco Use: 1 packs/day, for 30 years. Quit 03/20/2008. Types: Cigarettes Alcohol Use: No REVIEW OF SYSTEMS: GENERAL: Well developed, well nourished. No acute distress PAIN: R Shoulder CARDIOVASCULAR: Negative for chest pain, leg swelling and palpations. MSK: R Shoulder Repair 2010, B TKA, L ELÍAS SKIN: Negative for lesions, rash, itching, metal sensitivity NEURO: Diabetic Neuropathy ENDOCRINE: Dm II Controlled HEMATOLOGY: Janven PHYSICAL EXAMINATION: Vital Signs Resp 17 Ht 5' 5 (1.65m) Wt 178 lb (80.7kg) BMI 29.62 kg/(m2). Physical exam reveals no tenderness of the posterior cervical spine. No radiating right shoulder pain on cervical motion or neck axial compression. Right shoulder symmetrical contour without swelling, ecchymosis or erythema. Benign anterosuperior incisional scar without local tenderness. Intact anterior deltoid origin. Suspected mild rotator cuff muscle atrophy. No palpable right shoulder joint or bursal effusion. Ruptured retracted long head of the biceps contour right anterior shoulder without local tenderness (chronic). Right acromioclavicular joint mild bulbous enlargement and remains nontender. Distal clavicle stable. No scapular winging. Subacromial motion with palpaple crepitance. No residual tenderness of the coracoacromial arch. Suspected palpable defect of the cuff insertion region. No local tenderness of the anterior and posterior right shoulder joint region. No distinct palpable glenohumeral joint crepitance. Right shoulder maintained active forward elevation to 140? sitting with humeral head stable beneath the acromial arch. Right shoulder active external rotation 55? bilateral. Internal rotation behind the back to L3. Right lateral shoulder ache with improving cross body reaching. Mild impingement sign. Negative reinforcement sign. Symmetrical strength on resisted right shoulder abduction and forward flexion. Right shoulder improved external rotation strength, grade 4+/5 strength. Persistent right shoulder pain and weakness on supraspinatus testing, grade 4?/5 strength. Good strength on resisted elbow flexion. Biceps testing non provocative. Intact liftoff test. Distal neurologic testing C6-T1 upper extremities unremarkable. Radial pulse symmetrical. RADIOGRAPHS: Previous right shoulder radiographs, 02/04/19, including AP, axillary and outlet view reveals humeral head superior migration with narrowing of the acromiohumeral distance measuring 5 mm. Positive eburnation of the greater tuberosity with lateral spurring. Narrowing of the superior aspect of the glenohumeral joint cartilage space without apparent superior glenoid erosion. Mild proximal humeral osteopenia. No apparent anterior humeral subluxation on axillary radiograph. Mild degenerative change of the acromioclavicular joint. INJECTIONS: Right shoulder cortisone subacromial injection, 02/04/19. ASSESSMENT: M75.101, M12.811 Rotator cuff tear arthropathy, right (primary encounter diagnosis) Comment: satisfactory comfort and limited functional goals regarding nonoperative management of clinical large degenerative rotator cuff tear with radiographic humeral head superior migration and glenohumeral arthropathy. Z98.890 S/P right rotator cuff repair Comment: Status post right shoulder chronic large 4 cm supraspinatus and infraspinatus rotator cuff tear repair, ruptured long head of the biceps tendon and modified open anterior acromioplasty, 04/17/10. PLAN: 1. Rotator cuff tear arthropathy, right 2. S/P right rotator cuff repair Patient is satisfied with improved right shoulder comfort and understands the limited overhead reaching strength given the clinical cuff tear deficiency. She is encouraged to continue a home program of gentle right shoulder stretching and 2?3 times a week strengthening with emphasis on deltoid supine presses, goal 5-8 lbs, to compensate for cuff tear deficiency. She was further discussed limited functional goals with instruction to avoid pushing, pulling or lifting greater than 10 pounds right arm. She is not requiring shoulder pain management. She elects to follow-up as needed. Cruz Sanchez MD [facility] OBSOLETEon 03-17-2019 OBSOLETE Refill ([facility]) EZRA GONZALEZ ([id number]) 1935 F Date Time Provider Department 03/17/19 VIPUL BUCHANAN ([facility]) [facility] During your visit today, we recorded the following information about you: Anne Marie Hobbs Reg 03/18/2019 7:40 AM Signed Pharmacy faxed requesting the following refill. Pending Prescriptions Disp Refills LISINOPRIL 5 MG TABLET 90 tablet 0 Sig: TAKE ONE TABLET BY MOUTH once DAILY SHAHEEN: Yes Last refill: 10/09/2018 Patient last appointment: 09/30/2018 Patient next appointment: Visit date not found Patient Phone numbers: [phone] (home) Request is for script(s) to be escript to pharmacy. Anne Marie Hobbs Reg Allergies As of Date: 03/17/2019 Noted Allergy Reaction CODEINE 03/20/2015 16 - Unknown CRESTOR (ROSUVASTATIN) 03/20/2015 14 - Other: See Comments Comments: Myalgias DEMEROL (MEPERIDINE) 03/20/2015 8 - GI Upset LATEX 03/20/2015 2 - Rash LIPITOR (ATORVASTATIN) 03/20/2015 14 - Other: See Comments Comments: Myalgias Date Reviewed: 02/04/2019 Reviewed by: Cruz Sanchez - Fully Assessed Reason for Visit: Refill Request [94] Order(s):lisinopril (ZESTRIL, PRINIVIL) 5 mg tabletTAKE ONE TABLET BY MOUTH once DAILYDisp: 90 tabletRfl: 0 Prescriptions as of 03/17/2019 Sig: LISINOPRIL 5 MG TABLET TAKE ONE TABLET BY MOUTH once* JANTOVEN 2 MG TABLET TAKE 2 MG BY MOUTH ON FRIDAY,* FUROSEMIDE 20 MG TABLET TAKE ONE TABLET BY MOUTH ONCE* X RANITIDINE 150 MG TABLET TAKE ONE TABLET BY MOUTH EVER* SIMVASTATIN 20 MG TABLET TAKE ONE TABLET BY MOUTH ADITI* LANCETS Use as instructed METOPROLOL SUCCINATE ER 100 M* Take 0.5 tablets by mouth onc* BLOOD SUGAR DIAGNOSTIC STRIPS Use as instructed. Pt testing* AMMONIUM LACTATE 12 % LOTION Apply 1 application to affect* MELATONIN 1 MG TABLET Take 1 mg by mouth daily at b* CHOLECALCIFEROL (VITAMIN D3) * Take 1,000 Units by mouth onc* Problem List As Of Date 03/17/2019 Noted Resolved Type 2 diabetes mellitus (HCC) [E11.9] Diabetic renal disease (HCC) [E11.21] Essential hypertension [I10] Mixed hyperlipidemia [E78.2] Osteoarthritis [M19.90] Vitamin D deficiency [E55.9] Atrial fibrillation (HCC)- ablation 2011 [I48.* On anticoagulant therapy [Z79.01] Spinal stenosis [M48.00] Peripheral venous insufficiency [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 [Z96.642] 05/19/2015 Reactive airway disease [J45.909] 11/14/2015 S/P coronary artery stent placement- 2006 [Z95*11/14/2015 Atherosclerosis of [place] coronary artery of na*11/14/2015 Asymptomatic cholelithiasis [K80.20] 12/18/2015 Hemarthrosis involving knee joint [M25.069] 02/09/2016 11/13/2016 History of knee replacement, total-bilateral [*02/09/2016 Presence of stent in coronary artery [Z95.5] 03/02/2016 OAB (overactive bladder) [N32.81] 12/11/2016 Incontinence of feces with fecal urgency [R15.9*12/11/2016 Chronic kidney disease, stage 2, mildly decreas* Tubular adenoma of colon-= 2014 last scope [D12* Adjustment disorder with depressed mood [F43.21]07/07/2017 Coronary arteriosclerosis [I25.10] Obesity, Class I, BMI 30-34.9 E66.9 [E66.9] 07/21/2017 Osteopenia of multiple sites [M85.89] 01/05/2018 Status post ablation of atrial fibrillation [Z9*01/05/2018 Chronic anticoagulation [Z79.01] 11/27/2018 Tendinitis of right rotator cuff [M75.81] 02/04/2019 S/P right rotator cuff repair [Z98.890] 02/04/2019 Rotator cuff tear arthropathy, right [M75.101, *02/04/2019 Prescriptions ordered this encounter Disp Refills Start End LISINOPRIL 5 MG TABLET 90 t* 0 03/18/2019 Sig: TAKE ONE TABLET BY MOUTH once DAILY Medications Discontinued During This Encounter lisinopril (ZESTRIL, PRINIVIL) 5 mg * 90 t* 1 10/09/2018 03/18/2019 Sig: TAKE ONE TABLET BY MOUTH once DAILY Disc: Reason for discontinue is not on file. Encounter Status:Closed by JO PEREZ on 03/18/19 [facility] OBSOLETE Refill ([facility]) EZRA GONZALEZ ([id number]) 1935 F Date Time Provider Department 03/17/19 JO PEREZ During your visit today, we recorded the following information about you: Anne Marie Hobbs Reg 03/18/2019 7:41 AM Signed Pharmacy faxed requesting the following refill. Pending Prescriptions Disp Refills RANITIDINE 150 MG TABLET 90 tablet 0 Sig: TAKE ONE TABLET BY MOUTH EVERY DAY SHAHEEN: Yes Last refill: 12/16/2018 Patient last appointment: 09/30/2018 Patient next appointment: 04/02/2019 Patient Phone numbers: [phone] (home) Request is for script(s) to be escript to pharmacy. Anne Marie Hobbs Reg Allergies As of Date: 03/17/2019 Noted Allergy Reaction CODEINE 03/20/2015 16 - Unknown CRESTOR (ROSUVASTATIN) 03/20/2015 14 - Other: See Comments Comments: Myalgias DEMEROL (MEPERIDINE) 03/20/2015 8 - GI Upset LATEX 03/20/2015 2 - Rash LIPITOR (ATORVASTATIN) 03/20/2015 14 - Other: See Comments Comments: Myalgias Date Reviewed: 02/04/2019 Reviewed by: Cruz Sanchez - Fully Assessed Reason for Visit: Refill Request [94] Order(s):ranitidine (ZANTAC) 150 mg tabletTAKE ONE TABLET BY MOUTH EVERY DAYDisp: 90 tabletRfl: 0 Prescriptions as of 03/17/2019 Sig: RANITIDINE 150 MG TABLET TAKE ONE TABLET BY MOUTH EVER* JANTOVEN 2 MG TABLET TAKE 2 MG BY MOUTH ON FRIDAY,* FUROSEMIDE 20 MG TABLET TAKE ONE TABLET BY MOUTH ONCE* SIMVASTATIN 20 MG TABLET TAKE ONE TABLET BY MOUTH ADITI* LISINOPRIL 5 MG TABLET TAKE ONE TABLET BY MOUTH once* LANCETS Use as instructed METOPROLOL SUCCINATE ER 100 M* Take 0.5 tablets by mouth onc* BLOOD SUGAR DIAGNOSTIC STRIPS Use as instructed. Pt testing* AMMONIUM LACTATE 12 % LOTION Apply 1 application to affect* MELATONIN 1 MG TABLET Take 1 mg by mouth daily at b* CHOLECALCIFEROL (VITAMIN D3) * Take 1,000 Units by mouth onc* Problem List As Of Date 03/17/2019 Noted Resolved Type 2 diabetes mellitus (HCC) [E11.9] Diabetic renal disease (HCC) [E11.21] Essential hypertension [I10] Mixed hyperlipidemia [E78.2] Osteoarthritis [M19.90] Vitamin D deficiency [E55.9] Atrial fibrillation (HCC)- ablation 2011 [I48.* On anticoagulant therapy [Z79.01] Spinal stenosis [M48.00] Peripheral venous insufficiency [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 [Z96.642] 05/19/2015 Reactive airway disease [J45.909] 11/14/2015 S/P coronary artery stent placement- 2006 [Z95*11/14/2015 Atherosclerosis of [place] coronary artery of na*11/14/2015 Asymptomatic cholelithiasis [K80.20] 12/18/2015 Hemarthrosis involving knee joint [M25.069] 02/09/2016 11/13/2016 History of knee replacement, total-bilateral [*02/09/2016 Presence of stent in coronary artery [Z95.5] 03/02/2016 OAB (overactive bladder) [N32.81] 12/11/2016 Incontinence of feces with fecal urgency [R15.9*12/11/2016 Chronic kidney disease, stage 2, mildly decreas* Tubular adenoma of colon-= 2015 last scope [D12* Adjustment disorder with depressed mood [F43.21]07/07/2017 Coronary arteriosclerosis [I25.10] Obesity, Class I, BMI 30-34.9 E66.9 [E66.9] 07/21/2017 Osteopenia of multiple sites [M85.89] 01/05/2018 Status post ablation of atrial fibrillation [Z9*01/05/2018 Chronic anticoagulation [Z79.01] 11/27/2018 Tendinitis of right rotator cuff [M75.81] 02/04/2019 S/P right rotator cuff repair [Z98.890] 02/04/2019 Rotator cuff tear arthropathy, right [M75.101, *02/04/2019 Prescriptions ordered this encounter Disp Refills Start End RANITIDINE 150 MG TABLET 90 t* 0 03/18/2019 Sig: TAKE ONE TABLET BY MOUTH EVERY DAY Medications Discontinued During This Encounter ranitidine (ZANTAC) 150 mg tablet 90 t* 0 12/16/2018 03/18/2019 Sig: TAKE ONE TABLET BY MOUTH EVERY DAY Disc: Reason for discontinue is not on file. Encounter Status:Closed by [facility]18/[facility] LISAEZRA Alis ([id number]) 1935 F Date Time Provider Department 02/04/19 1:30 PM CRUZ SANCHEZ [id number] During your visit today, we recorded the following information about you: Respiration Weight Height 17/minute 80.7 kg 1.676 m Cruz Sanchez MD 02/04/2019 4:40 PM Signed HISTORY OF PRESENT ILLNESS: Ezra Lisa was provided orthopedic evaluation regarding right shoulder complaints. Patient is an 83-year-old leroa-drwg-rldxmrul female who is previously known status post right shoulder chronic large 4 cm supraspinatus and infraspinatus rotator cuff tear repair, ruptured long head of the biceps tendon and modified open anterior acromioplasty almost 9 years ago, 04/17/10. Patient was last seen for opposite left shoulder rotator cuff tendinitis 4.5 years ago, 05/26/14. She states she has been doing well right shoulder comfort and functional use until onset of right anterolateral shoulder pain starting about one month ago. Patient states she got a new rowing exercise machine and was increasing repetitions over about two weeks when she noticed onset of this right anterolateral shoulder pain. She denies any right shoulder swelling or bruising discoloration. She is also typically active with housework at home which may be aggravating. 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 She denies acute right shoulder injury. Right shoulder pain aggravated by reaching at or above shoulder level, especially in abduction. Right shoulder pain graded 3/10 with activity. Right shoulder comfortable when using the arm at her side. Symptoms include right shoulder night discomfort depending on arm position. She denies numbness or tingling right upper extremity. No current neck complaints. She takes occasional Tylenol as needed. 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) - Old ID (myocardial infarction) 2006 - On anticoagulant therapy - On senior care drug therapy - Osteoarthritis - Peripheral venous insufficiency - Renal disorder Renal disorder due to type 2 diabetes mellitus - Rotator cuff syndrome - Spinal stenosis - Tubular adenoma of colon-= 2014 last scope - Type 2 diabetes mellitus (HCC) - Vitamin D deficiency PAST SURGICAL HISTORY Procedure Laterality Date - 24 HR HOLTER MONITOR 01/31/2012 - ECHOCARDIOGRAM 01/31/2012 - EKG 07/31/2015 - FOOT SURGERY HX Bilateral - HEART CATHETERIZATION 12/16/2008 - HERNIA REPAIR HX - HYSTERECTOMY HX - NUCLEAR STRESS LEXISCAN (CARD) 11/08/2015 - SHOULDER SURGERY HX Right 2010 Dr Sanchez - TOTAL HIP REPLACEMENT Left 2009 - TOTAL KNEE REPLACEMENT Bilateral 01/04/2016 Current Outpatient Medications: JANTOVEN 2 mg tablet TAKE 2 MG BY MOUTH ON FRIDAY, FRIDAY AND FRIDAY AND TAKE 3 MG ON ALL OTHER DAYS. furosemide (LASIX) 20 mg tablet TAKE ONE TABLET BY MOUTH ONCE DAILY ranitidine (ZANTAC) 150 mg tablet TAKE ONE TABLET BY MOUTH EVERY DAY simvastatin (ZOCOR) 20 mg tablet TAKE ONE TABLET BY MOUTH DAILY AT BEDTIME lisinopril (ZESTRIL, PRINIVIL) 5 mg tablet TAKE ONE TABLET BY MOUTH once DAILY Lancets lancets Use as instructed metoprolol succinate ER (TOPROL XL) 100 mg Tb24 Take 0.5 tablets by mouth once daily. blood sugar diagnostic (BLOOD GLUCOSE TEST) test strip Use as instructed. Pt testing 2-3 times a week. One touch test strips # 17 Diagnosis code E11.9 ammonium lactate (LAC-HYDRIN) 12 % lotion Apply 1 application to affected area as needed. melatonin 1 mg tablet Take 1 mg by mouth daily at bedtime. cholecalciferol (VITAMIN D3) 1,000 unit tab Take 1,000 Units by mouth once daily. No current facility-administered medications for this visit. ALLERGIES Allergen Reactions - Codeine Unknown - Crestor [Rosuvastat* Other: See Comments Myalgias - Demerol [Meperidine] GI Upset - Latex Rash - Lipitor [Atorvastat* Other: See Comments Myalgias Tobacco Use: 1 packs/day, for 30 years. Quit 03/20/2008. Types: Cigarettes Alcohol Use: No REVIEW OF SYSTEMS: GENERAL: Well developed, well nourished. No acute distress PAIN: Negative for pain, history of chronic pain or current treatment for chronic pain conditions CARDIOVASCULAR: A-Fib, Coronary Arteriosclerosis, HTN, Old ID, Peripheral Venous Inufficiency, MSK: Degenerative Joint Disease, O.A., Rotator Cuff Syndrome, Spinal Stenosis, L ELÍAS 2009, R Shoulder Sx Dr Sanchez SKIN: Negative for lesions, rash, itching, metal sensitivity NEURO: Negative for seizure, trauma, numbness/tingling of extremities. ENDOCRINE: DM II Controlled, Renal Disorder, Diabetic Renal Disease, CKD Stage III HEMATOLOGY: Coumadin PHYSICAL EXAMINATION: Vital Signs Resp 17 Ht 5' 6 (1.68m) Wt 178 lb (80.7kg) BMI 28.74 kg/(m2). Physical exam reveals a pleasant elderly female in no acute distress. No tenderness of the posterior cervical spine. No radiating right shoulder pain on cervical motion or neck axial compression. Right shoulder symmetrical contour without swelling, ecchymosis or erythema. Benign anterosuperior incisional scar without local tenderness. Intact anterior deltoid origin. Suspected mild rotator cuff muscle atrophy. No palpable right shoulder joint or bursal effusion. Ruptured retracted long head of the biceps contour right anterior shoulder without local tenderness (chronic). Right acromioclavicular joint mild bulbous enlargement without local tenderness. Distal clavicle stable. No scapular winging. Subacromial motion with palpaple crepitance. Mild tenderness of the coracoacromial arch. Suspected palpable defect of the cuff insertion region. No local tenderness of the anterior and posterior right shoulder joint region. No distinct palpable glenohumeral joint crepitance. Right shoulder active forward elevation with painful arc on slowly reaching to 140? sitting with humeral head stable beneath the acromial arch. Right shoulder active external rotation 55? bilateral. Internal rotation behind the back to L3. Right lateral shoulder ache with cross body reaching with some stiffness compared to the left. Mild impingement sign. Negative reinforcement sign. Symmetrical strength on resisted right shoulder abduction and forward flexion. Right shoulder ache on resisted external rotation, grade 4/5 strength. Positive right shoulder pain and weakness on supraspinatus testing, grade 4?/5 strength. Good strength on resisted elbow flexion. Biceps testing non provocative. Intact liftoff test. Distal neurologic testing C6-T1 upper extremities unremarkable. Radial pulse symmetrical. RADIOGRAPHS: Right shoulder radiographs, 02/04/19, including AP, axillary and outlet view reveals humeral head superior migration with narrowing of the acromiohumeral distance measuring 5 mm. Positive eburnation of the greater tuberosity with lateral spurring. Narrowing of the superior aspect of the glenohumeral joint cartilage space without apparent superior glenoid erosion. Mild proximal humeral osteopenia. No apparent anterior humeral subluxation on axillary radiograph. Mild degenerative change of the acromioclavicular joint. INJECTIONS: Right shoulder cortisone subacromial injection today, 02/04/19. ASSESSMENT: M75.101, M12.811 Rotator cuff tear arthropathy, right (primary encounter diagnosis) Comment: Clinical large degenerative rotator cuff tear with radiographic humeral head superior migration and glenohumeral arthropathy. Z98.890 S/P right rotator cuff repair Comment: Status post right shoulder chronic large 4 cm supraspinatus and infraspinatus rotator cuff tear repair, ruptured long head of the biceps tendon and modified open anterior acromioplasty, 04/17/10. PLAN: 1. Tendinitis of right rotator cuff - XR SHOULDER GENERAL 3V OR MORE AP/TRUE AP/OTHER RT 2. S/P right rotator cuff repair 3. Rotator cuff tear arthropathy, right - CONSULT TO PHYSICAL THERAPY (AG) - DRAIN/INJECT LARGE JOINT/BURSA - betamethasone acetate-betamethasone sodium phosphate 12 mg injection (CELESTONE) - lidocaine 1% 30 mg injection (XYLOCAINE) Patient was discussed treatment options regarding right shoulder chronic large degenerative rotator cuff tear and radiographic cuff tear arthropathy. Initial recommendations include physical therapy for gentle right shoulder stretching and strengthening exercises, with emphasis on deltoid supine presses to compensate for cuff tear deficiency. Patient instructed to avoid repetitive overhead reaching, and avoid pushing, pulling or lifting greater than 10 pounds right shoulder. Patient instructed to avoid pushing her weight with transfers from bed or chair as possible. She elected for a right shoulder cortisone subacromial injection. This was provided utilizing sterile technique with 3 cc lidocaine and 2 cc Celestone from lateral approach which she tolerated well. She understands the potential transient elevated blood sugar postinjection regarding diabetes. She may continue Tylenol but typically avoids anti-inflammatory medicine with past history renal disease. Recommend follow-up in 6 weeks. If right shoulder cuff arthropathy symptoms worsen, alternative treatment includes reverse shoulder arthroplasty, though patient may be a somewhat guarded medical candidate. MD Cruz Bolton MD 02/04/2019 2:48 PM Signed Patient was discussed treatment options regarding right shoulder chronic large degenerative rotator cuff tear and radiographic cuff tear arthropathy. Initial recommendations include physical therapy for gentle right shoulder stretching and strengthening exercises, with emphasis on deltoid supine presses to compensate for cuff tear deficiency. Patient instructed to avoid repetitive overhead reaching, and avoid pushing, pulling or lifting greater than 10 pounds right shoulder. Patient instructed to avoid pushing her weight with transfers from bed or chair as possible. She elected for a right shoulder cortisone subacromial injection. This was provided utilizing sterile technique with 3 cc lidocaine and 2 cc Celestone from lateral approach which she tolerated well. She understands the potential transient elevated blood sugar postinjection regarding diabetes. She may continue Tylenol but typically avoids anti-inflammatory medicine with past history renal disease. Recommend follow-up in 6 weeks. If right shoulder cuff arthropathy symptoms worsen, alternative treatment includes reverse shoulder arthroplasty, though patient may be a somewhat guarded medical candidate. Referring Provider: SELF [[id number]] Allergies As of Date: 02/04/2019 Noted Allergy Reaction CODEINE 03/20/2015 16 - Unknown CRESTOR (ROSUVASTATIN) 03/20/2015 14 - Other: See Comments Comments: Myalgias DEMEROL (MEPERIDINE) 03/20/2015 8 - GI Upset LATEX 03/20/2015 2 - Rash LIPITOR (ATORVASTATIN) 03/20/2015 14 - Other: See Comments Comments: Myalgias Date Reviewed: 02/04/2019 Reviewed by: Cruz Sanchez - Fully Assessed Reason for Visit: New Patient [172] Cmt: R Shoulder Primary Visit Diagnosis:Rotator cuff tear arthropathy, right [M75.101, M12.811] Other Visit Diagnoses:Tendinitis of right rotator cuff [M75.81] S/P right rotator cuff repair [Z98.890] Order(s):XR SHOULDER GENERAL 3V OR MORE AP/TRUE AP/OTHER RT [3417774] Order #: [id number] CONSULT TO PHYSICAL THERAPY (AG) [[id number]] Order #: [id number]: 1 DRAIN/INJECT LARGE JOINT/BURSA [[id number]] Order #: [id number] [] betamethasone acetate-betamethasone sodium phosphate 12 mg injection (CELESTONE)Disp: Rfl: [] lidocaine 1% 30 mg injection (XYLOCAINE)Disp: Rfl: Prescriptions as of 02/04/2019 Sig: JANTOVEN 2 MG TABLET TAKE 2 MG BY MOUTH ON FRIDAY,* FUROSEMIDE 20 MG TABLET TAKE ONE TABLET BY MOUTH ONCE* RANITIDINE 150 MG TABLET TAKE ONE TABLET BY MOUTH EVER* SIMVASTATIN 20 MG TABLET TAKE ONE TABLET BY MOUTH ADITI* LISINOPRIL 5 MG TABLET TAKE ONE TABLET BY MOUTH once* LANCETS Use as instructed METOPROLOL SUCCINATE ER 100 M* Take 0.5 tablets by mouth onc* BLOOD SUGAR DIAGNOSTIC STRIPS Use as instructed. Pt testing* AMMONIUM LACTATE 12 % LOTION Apply 1 application to affect* MELATONIN 1 MG TABLET Take 1 mg by mouth daily at b* CHOLECALCIFEROL (VITAMIN D3) * Take 1,000 Units by mouth onc* Problem List As Of Date 02/04/2019 Noted Resolved Type 2 diabetes mellitus (HCC) [E11.9] Diabetic renal disease (HCC) [E11.21] Essential hypertension [I10] Mixed hyperlipidemia [E78.2] Osteoarthritis [M19.90] Vitamin D deficiency [E55.9] Atrial fibrillation (HCC)- ablation 2011 [I48.* On anticoagulant therapy [Z79.01] Spinal stenosis [M48.00] Peripheral venous insufficiency [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 [Z96.642] INVALID FOR* Reactive airway disease [J45.909] INVALID FOR* S/P coronary artery stent placement- 2006 [Z95*INVALID FOR* Atherosclerosis of [place] coronary artery of na*INVALID FOR* Asymptomatic cholelithiasis [K80.20] INVALID FOR* Hemarthrosis involving knee joint [M25.069] INVALID FOR*11/13/2016 History of knee replacement, total-bilateral [*INVALID FOR* Presence of stent in coronary artery [Z95.5] INVALID FOR* OAB (overactive bladder) [N32.81] INVALID FOR* Incontinence of feces with fecal urgency [R15.9*INVALID FOR* Chronic kidney disease, stage 2, mildly decreas* Tubular adenoma of colon-= 2014 last scope [D12* Adjustment disorder with depressed mood [F43.21]INVALID FOR* Coronary arteriosclerosis [I25.10] Obesity, Class I, BMI 30-34.9 E66.9 [E66.9] INVALID FOR* Osteopenia of multiple sites [M85.89] INVALID FOR* Status post ablation of atrial fibrillation [Z9*INVALID FOR* Chronic anticoagulation [Z79.01] INVALID FOR* Tendinitis of right rotator cuff [M75.81] INVALID FOR* S/P right rotator cuff repair [Z98.890] INVALID FOR* Rotator cuff tear arthropathy, right [M75.101, *INVALID FOR* Other instructions from your clinician: Patient was discussed treatment options regarding right shoulder chronic large degenerative rotator cuff tear and radiographic cuff tear arthropathy. Initial recommendations include physical therapy for gentle right shoulder stretching and strengthening exercises, with emphasis on deltoid supine presses to compensate for cuff tear deficiency. Patient instructed to avoid repetitive overhead reaching, and avoid pushing, pulling or lifting greater than 10 pounds right shoulder. Patient instructed to avoid pushing her weight with transfers from bed or chair as possible. She elected for a right shoulder cortisone subacromial injection. This was provided utilizing sterile technique with 3 cc lidocaine and 2 cc Celestone from lateral approach which she tolerated well. She understands the potential transient elevated blood sugar postinjection regarding diabetes. She may continue Tylenol but typically avoids anti-inflammatory medicine with past history renal disease. Recommend follow-up in 6 weeks. If right shoulder cuff arthropathy symptoms worsen, alternative treatment includes reverse shoulder arthroplasty, though patient may be a somewhat guarded medical candidate. Prescriptions ordered this encounter Disp Refills Start End BETAMETHASONE ACETATE AND SODIUM MARQUES* 02/04/2019 02/04/2019 Route: OTHER LIDOCAINE 10 MG/ML (1 %) INJECTION S* 02/04/2019 02/04/2019 Route: INJECTION Disposition: Return in about 6 weeks (around 03/18/2019). Follow-up and Disposition History Recorded Encounter Status:Closed by CRUZ SANCHEZ MD on 02/04/19 [facility] PROGRESSon 02-04-2019 PROGRESS HNO ID: [id number] Author: Cruz Sanchez Service: ? Author Type: Physician Type: Progress Notes Filed: 02/04/2019 4:40 PM Note Text: HISTORY OF PRESENT ILLNESS: Ezra Gonzalez was provided orthopedic evaluation regarding right shoulder complaints. Patient is an 83-year-old [id number] female who is previously known status post right shoulder chronic large 4 cm supraspinatus and infraspinatus rotator cuff tear repair, ruptured long head of the biceps tendon and modified open anterior acromioplasty almost 9 years ago, 04/17/10. Patient was last seen for opposite left shoulder rotator cuff tendinitis 4.5 years ago, 05/26/14. She states she has been doing well right shoulder comfort and functional use until onset of right anterolateral shoulder pain starting about one month ago. Patient states she got a new rowing exercise machine and was increasing repetitions over about two weeks when she noticed onset of this right anterolateral shoulder pain. She denies any right shoulder swelling or bruising discoloration. She is also typically active with housework at home which may be aggravating. 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 She denies acute right shoulder injury. Right shoulder pain aggravated by reaching at or above shoulder level, especially in abduction. Right shoulder pain graded 3/10 with activity. Right shoulder comfortable when using the arm at her side. Symptoms include right shoulder night discomfort depending on arm position. She denies numbness or tingling right upper extremity. No current neck complaints. She takes occasional Tylenol as needed. 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) - Old ID (myocardial infarction) 2006 - On anticoagulant therapy - 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 therapy - Osteoarthritis - Peripheral venous insufficiency - Renal disorder Renal disorder due to type 2 diabetes mellitus - Rotator cuff syndrome - Spinal stenosis - Tubular adenoma of colon-= 2014 last scope - Type 2 diabetes mellitus (HCC) - Vitamin D deficiency PAST SURGICAL HISTORY Procedure Laterality Date - 24 HR HOLTER MONITOR 01/31/2012 - ECHOCARDIOGRAM 01/31/2012 - EKG 07/31/2015 - FOOT SURGERY HX Bilateral - HEART CATHETERIZATION 12/16/2008 - HERNIA REPAIR HX - HYSTERECTOMY HX - NUCLEAR STRESS LEXISCAN (CARD) 11/08/2015 - SHOULDER SURGERY HX Right 2010 Dr Sanchez - TOTAL HIP REPLACEMENT Left 2009 - TOTAL KNEE REPLACEMENT Bilateral 01/04/2016 Current Outpatient Medications: JANTOVEN 2 mg tablet TAKE 2 MG BY MOUTH ON FRIDAY, FRIDAY AND FRIDAY AND TAKE 3 MG ON ALL OTHER DAYS. furosemide (LASIX) 20 mg tablet TAKE ONE TABLET BY MOUTH ONCE DAILY ranitidine (ZANTAC) 150 mg tablet TAKE ONE TABLET BY MOUTH EVERY DAY simvastatin (ZOCOR) 20 mg tablet TAKE ONE TABLET BY MOUTH DAILY AT BEDTIME lisinopril (ZESTRIL, PRINIVIL) 5 mg tablet TAKE ONE TABLET BY MOUTH once DAILY Lancets lancets Use as instructed metoprolol succinate ER (TOPROL XL) 100 mg Tb24 Take 0.5 tablets by mouth once daily. blood sugar diagnostic (BLOOD GLUCOSE TEST) test strip Use as instructed. Pt testing 2-3 times a week. One touch test strips # 17 Diagnosis code E11.9 ammonium lactate (LAC-HYDRIN) 12 % lotion Apply 1 application to affected area as needed. melatonin 1 mg tablet Take 1 mg by mouth daily at bedtime. cholecalciferol (VITAMIN D3) 1,000 unit tab Take 1,000 Units by mouth once daily. No current facility-administered medications for this visit. ALLERGIES Allergen Reactions - Codeine Unknown - Crestor [Rosuvastat* Other: See Comments Myalgias - Demerol [Meperidine] GI Upset - Latex Rash - Lipitor [Atorvastat* Other: See Comments Myalgias Tobacco Use: 1 packs/day, for 30 years. Quit 03/20/2008. Types: Cigarettes Alcohol Use: No REVIEW OF SYSTEMS: GENERAL: Well developed, well nourished. No acute distress PAIN: Negative for pain, history of chronic pain or current treatment for chronic pain conditions CARDIOVASCULAR: A-Fib, Coronary Arteriosclerosis, HTN, Old ID, Peripheral Venous Inufficiency, MSK: Degenerative Joint Disease, O.A., Rotator Cuff Syndrome, Spinal Stenosis, L ELÍAS 2009, R Shoulder Sx Dr Sanchez SKIN: Negative for lesions, rash, itching, metal sensitivity NEURO: Negative for seizure, trauma, numbness/tingling of extremities. ENDOCRINE: DM II Controlled, Renal Disorder, Diabetic Renal Disease, CKD Stage III HEMATOLOGY: Coumadin PHYSICAL EXAMINATION: Vital Signs Resp 17 Ht 5' 6 (1.68m) Wt 178 lb (80.7kg) BMI 28.74 kg/(m2). Physical exam reveals a pleasant elderly female in no acute distress. No tenderness of the posterior cervical spine. No radiating right shoulder pain on cervical motion or neck axial compression. Right shoulder symmetrical contour without swelling, ecchymosis or erythema. Benign anterosuperior incisional scar without local tenderness. Intact anterior deltoid origin. Suspected mild rotator cuff muscle atrophy. No palpable right shoulder joint or bursal effusion. Ruptured retracted long head of the biceps contour right anterior shoulder without local tenderness (chronic). Right acromioclavicular joint mild bulbous enlargement without local tenderness. Distal clavicle stable. No scapular winging. Subacromial motion with palpaple crepitance. Mild tenderness of the coracoacromial arch. Suspected palpable defect of the cuff insertion region. No local tenderness of the anterior and posterior right shoulder joint region. No distinct palpable glenohumeral joint crepitance. Right shoulder active forward elevation with painful arc on slowly reaching to 140? sitting with humeral head stable beneath the acromial arch. Right shoulder active external rotation 55? bilateral. Internal rotation behind the back to L3. Right lateral shoulder ache with cross body reaching with some stiffness compared to the left. Mild impingement sign. Negative reinforcement sign. Symmetrical strength on resisted right shoulder abduction and forward flexion. Right shoulder ache on resisted external rotation, grade 4/5 strength. Positive right shoulder pain and weakness on supraspinatus testing, grade 4?/5 strength. Good strength on resisted elbow flexion. Biceps testing non provocative. Intact liftoff test. Distal neurologic testing C6-T1 upper extremities unremarkable. Radial pulse symmetrical. RADIOGRAPHS: Right shoulder radiographs, 02/04/19, including AP, axillary and outlet view reveals humeral head superior migration with narrowing of the acromiohumeral distance measuring 5 mm. Positive eburnation of the greater tuberosity with lateral spurring. Narrowing of the superior aspect of the glenohumeral joint cartilage space without apparent superior glenoid erosion. Mild proximal humeral osteopenia. No apparent anterior humeral subluxation on axillary radiograph. Mild degenerative change of the acromioclavicular joint. INJECTIONS: Right shoulder cortisone subacromial injection today, 02/04/19. ASSESSMENT: M75.101, M12.811 Rotator cuff tear arthropathy, right (primary encounter diagnosis) Comment: Clinical large degenerative rotator cuff tear with radiographic humeral head superior migration and glenohumeral arthropathy. Z98.890 S/P right rotator cuff repair Comment: Status post right shoulder chronic large 4 cm supraspinatus and infraspinatus rotator cuff tear repair, ruptured long head of the biceps tendon and modified open anterior acromioplasty, 04/17/10. PLAN: 1. Tendinitis of right rotator cuff - XR SHOULDER GENERAL 3V OR MORE AP/TRUE AP/OTHER RT 2. S/P right rotator cuff repair 3. Rotator cuff tear arthropathy, right - CONSULT TO PHYSICAL THERAPY (AG) - DRAIN/INJECT LARGE JOINT/BURSA - betamethasone acetate-betamethasone sodium phosphate 12 mg injection (CELESTONE) - lidocaine 1% 30 mg injection (XYLOCAINE) Patient was discussed treatment options regarding right shoulder chronic large degenerative rotator cuff tear and radiographic cuff tear arthropathy. Initial recommendations include physical therapy for gentle right shoulder stretching and strengthening exercises, with emphasis on deltoid supine presses to compensate for cuff tear deficiency. Patient instructed to avoid repetitive overhead reaching, and avoid pushing, pulling or lifting greater than 10 pounds right shoulder. Patient instructed to avoid pushing her weight with transfers from bed or chair as possible. She elected for a right shoulder cortisone subacromial injection. This was provided utilizing sterile technique with 3 cc lidocaine and 2 cc Celestone from lateral approach which she tolerated well. She understands the potential transient elevated blood sugar postinjection regarding diabetes. She may continue Tylenol but typically avoids anti-inflammatory medicine with past history renal disease. Recommend follow-up in 6 weeks. If right shoulder cuff arthropathy symptoms worsen, alternative treatment includes reverse shoulder arthroplasty, though patient may be a somewhat guarded medical candidate. Cruz Sanchez MD [facility] OBSOLETEon 01-21-2019 OBSOLETE Refill (AGCARDPOB) EZRA GONZALEZ ([id number]) 1935 F Date Time Provider Department 01/21/19 [facility]HAEL LUO AGCARDPOB During your visit today, we recorded the following information about you: Katya Huggins LPN 01/21/2019 11:45 AM Signed Patient's request for medication is as follows: Pending Prescriptions Disp Refills JANTOVEN 2 MG TABLET 108 tablet 1 Sig: TAKE 2 MG BY MOUTH ON FRIDAY, FRIDAY AND FRIDAY AND TAKE 3 MG ON ALL OTHER DAYS. SHAHEEN: Yes Last seen in the office on 11/27/2018. Patient is on recall list for 11/28/2019. Prescription(s) as above. Please process accordingly. Katya Huggins LPN Allergies As of Date: 01/21/2019 Noted Allergy Reaction CODEINE 03/20/2015 16 - Unknown CRESTOR (ROSUVASTATIN) 03/20/2015 14 - Other: See Comments Comments: Myalgias DEMEROL (MEPERIDINE) 03/20/2015 8 - GI Upset LATEX 03/20/2015 2 - Rash LIPITOR (ATORVASTATIN) 03/20/2015 14 - Other: See Comments Comments: Myalgias Date Reviewed: 11/27/2018 Reviewed by: Vika CastroGuthrie Towanda Memorial HospitalFinesse Torres - Fully Assessed Reason for Visit: Refill Request [94] Order(s):JANTOVEN 2 mg tabletTAKE 2 MG BY MOUTH ON FRIDAY, FRIDAY AND FRIDAY AND TAKE 3 MG ON ALL OTHER DAYS.Disp: 108 tabletRfl: 1 Prescriptions as of 01/21/2019 Sig: JANTOVEN 2 MG TABLET TAKE 2 MG BY MOUTH ON FRIDAY,* RANITIDINE 150 MG TABLET TAKE ONE TABLET BY MOUTH EVER* SIMVASTATIN 20 MG TABLET TAKE ONE TABLET BY MOUTH ADITI* LISINOPRIL 5 MG TABLET TAKE ONE TABLET BY MOUTH once* LANCETS Use as instructed METOPROLOL SUCCINATE ER 100 M* Take 0.5 tablets by mouth onc* BLOOD SUGAR DIAGNOSTIC STRIPS Use as instructed. Pt testing* X FUROSEMIDE 20 MG TABLET Take 1 tablet by mouth once d* AMMONIUM LACTATE 12 % LOTION Apply 1 application to affect* MELATONIN 1 MG TABLET Take 1 mg by mouth daily at b* CHOLECALCIFEROL (VITAMIN D3) * Take 1,000 Units by mouth onc* Problem List As Of Date 01/21/2019 Noted Resolved Type 2 diabetes mellitus (HCC) [E11.9] Diabetic renal disease (HCC) [E11.21] Essential hypertension [I10] Mixed hyperlipidemia [E78.2] Osteoarthritis [M19.90] Vitamin D deficiency [E55.9] Atrial fibrillation (HCC)- ablation 2011 [I48.* On anticoagulant therapy [Z79.01] Spinal stenosis [M48.00] Peripheral venous insufficiency [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 [Z96.642] INVALID FOR* Reactive airway disease [J45.909] INVALID FOR* S/P coronary artery stent placement- 2006 [Z95*INVALID FOR* Atherosclerosis of [place] coronary artery of na*INVALID FOR* Asymptomatic cholelithiasis [K80.20] INVALID FOR* Hemarthrosis involving knee joint [M25.069] INVALID FOR*11/13/2016 History of knee replacement, total-bilateral [*INVALID FOR* Presence of stent in coronary artery [Z95.5] INVALID FOR* OAB (overactive bladder) [N32.81] INVALID FOR* Incontinence of feces with fecal urgency [R15.9*INVALID FOR* Chronic kidney disease, stage 2, mildly decreas* Tubular adenoma of colon-= 2014 last scope [D12* Adjustment disorder with depressed mood [F43.21]INVALID FOR* Coronary arteriosclerosis [I25.10] Obesity, Class I, BMI 30-34.9 E66.9 [E66.9] INVALID FOR* Osteopenia of multiple sites [M85.89] INVALID FOR* Status post ablation of atrial fibrillation [Z9*INVALID FOR* Chronic anticoagulation [Z79.01] INVALID FOR* Prescriptions ordered this encounter Disp Refills Start End JANTOVEN 2 MG TABLET 108 * 1 01/21/2019 Sig: TAKE 2 MG BY MOUTH ON FRIDAY, FRIDAY AND FRIDAY AND TAKE 3 MG ON ALL OTHER DAYS. Medications Discontinued During This Encounter JANTOVEN 2 mg tablet 108 * 0 10/08/2018 01/21/2019 Sig: TAKE 2MG BY MOUTH ON FRIDAY, FRIDAY AND FRIDAY AND 3MG ON ALL OTHER DAYS Disc: Reason for discontinue is not on file. Encounter Status:Closed by RICKEY CHAVARRIA MD on 01/21/19 [facility] OBSOLETE Refill (AGC) EZRA GONZALEZ ([id number]) 1935 F Date Time Provider Department 01/21/19 [facility] During your visit today, we recorded the following information about you: Anne Marie Hobbs Reg 01/21/2019 12:05 PM Signed Pharmacy faxed requesting the following refill. Pending Prescriptions Disp Refills FUROSEMIDE 20 MG TABLET 90 tablet 2 Sig: TAKE ONE TABLET BY MOUTH ONCE DAILY SHAHEEN: Yes Last refill: 01/05/2018 Patient last appointment: 09/30/2018 Patient next appointment: 04/02/2019 Patient Phone numbers: [phone] (home) Request is for script(s) to be escript to pharmacy. Anne Marie Hobbs Reg Allergies As of Date: 01/21/2019 Noted Allergy Reaction CODEINE 03/20/2015 16 - Unknown CRESTOR (ROSUVASTATIN) 03/20/2015 14 - Other: See Comments Comments: Myalgias DEMEROL (MEPERIDINE) 03/20/2015 8 - GI Upset LATEX 03/20/2015 2 - Rash LIPITOR (ATORVASTATIN) 03/20/2015 14 - Other: See Comments Comments: Myalgias Date Reviewed: 11/27/2018 Reviewed by: Vika CastroGuthrie Towanda Memorial HospitalFinesse Torres - Fully Assessed Reason for Visit: Refill Request [94] Order(s):furosemide (LASIX) 20 mg tabletTAKE ONE TABLET BY MOUTH ONCE DAILYDisp: 90 tabletRfl: 2 Prescriptions as of 01/21/2019 Sig: FUROSEMIDE 20 MG TABLET TAKE ONE TABLET BY MOUTH ONCE* RANITIDINE 150 MG TABLET TAKE ONE TABLET BY MOUTH EVER* SIMVASTATIN 20 MG TABLET TAKE ONE TABLET BY MOUTH ADITI* LISINOPRIL 5 MG TABLET TAKE ONE TABLET BY MOUTH once* JANTOVEN 2 MG TABLET TAKE 2MG BY MOUTH ON FRIDAY, * LANCETS Use as instructed METOPROLOL SUCCINATE ER 100 M* Take 0.5 tablets by mouth onc* BLOOD SUGAR DIAGNOSTIC STRIPS Use as instructed. Pt testing* AMMONIUM LACTATE 12 % LOTION Apply 1 application to affect* MELATONIN 1 MG TABLET Take 1 mg by mouth daily at b* CHOLECALCIFEROL (VITAMIN D3) * Take 1,000 Units by mouth onc* Problem List As Of Date 01/21/2019 Noted Resolved Type 2 diabetes mellitus (HCC) [E11.9] Diabetic renal disease (HCC) [E11.21] Essential hypertension [I10] Mixed hyperlipidemia [E78.2] Osteoarthritis [M19.90] Vitamin D deficiency [E55.9] Atrial fibrillation (HCC)- ablation 2011 [I48.* On anticoagulant therapy [Z79.01] Spinal stenosis [M48.00] Peripheral venous insufficiency [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 [Z96.642] INVALID FOR* Reactive airway disease [J45.909] INVALID FOR* S/P coronary artery stent placement- 2006 [Z95*INVALID FOR* Atherosclerosis of [place] coronary artery of na*INVALID FOR* Asymptomatic cholelithiasis [K80.20] INVALID FOR* Hemarthrosis involving knee joint [M25.069] INVALID FOR*11/13/2016 History of knee replacement, total-bilateral [*INVALID FOR* Presence of stent in coronary artery [Z95.5] INVALID FOR* OAB (overactive bladder) [N32.81] INVALID FOR* Incontinence of feces with fecal urgency [R15.9*INVALID FOR* Chronic kidney disease, stage 2, mildly decreas* Tubular adenoma of colon-= 2014 last scope [D12* Adjustment disorder with depressed mood [F43.21]INVALID FOR* Coronary arteriosclerosis [I25.10] Obesity, Class I, BMI 30-34.9 E66.9 [E66.9] INVALID FOR* Osteopenia of multiple sites [M85.89] INVALID FOR* Status post ablation of atrial fibrillation [Z9*INVALID FOR* Chronic anticoagulation [Z79.01] INVALID FOR* Prescriptions ordered this encounter Disp Refills Start End FUROSEMIDE 20 MG TABLET 90 t* 2 01/21/2019 Sig: TAKE ONE TABLET BY MOUTH ONCE DAILY Medications Discontinued During This Encounter furosemide (LASIX) 20 mg tablet 90 t* 3 01/05/2018 01/21/2019 Route: ORAL Sig: Take 1 tablet by mouth once daily. Disc: Reason for discontinue is not on file. Encounter Status:Closed by JO PEREZ on 01/21/19 [facility] CNTHERAPYon 12-14-2018 CNTHERAPY OT/PT/Speech Visit (AKST[facility]) EZRA GONZALEZ ([id number]) 1935 F Date Time Provider Department 12/14/18 11:00 AM ANOOP COLLAZO (AUD) AKST[facility] Date Time Provider Department Center 12/14/2018 11:00 AM [id number], SHARON (*AKST[facility] NOLAN LONG Reason for Visit: Difficulty In Hearing In Noise [1113] Cmt: noted x 1-2 yrs Speech Discharge [3488] Cmt: AUDIOLOGY DISCHARGED 12-14-18 Reason For Visit History Recorded Primary Visit Diagnosis:Sensorineur al hearing loss, bilateral [H90.3] Allergies As of Date: 12/14/2018 Noted Allergy Reaction CODEINE 03/20/2015 16 - Unknown CRESTOR (ROSUVASTATIN) 03/20/2015 14 - Other: See Comments Comments: Myalgias DEMEROL (MEPERIDINE) 03/20/2015 8 - GI Upset LATEX 03/20/2015 2 - Rash LIPITOR (ATORVASTATIN) 03/20/2015 14 - Other: See Comments Comments: Myalgias Date Reviewed: 11/27/2018 Reviewed by: Vika ([facility]) Brian - Fully Assessed Prescriptions as of 12/14/2018 Sig: SIMVASTATIN 20 MG TABLET TAKE ONE TABLET BY MOUTH ADITI* LISINOPRIL 5 MG TABLET TAKE ONE TABLET BY MOUTH once* JANTOVEN 2 MG TABLET TAKE 2MG BY MOUTH ON FRIDAY, * LANCETS Use as instructed RANITIDINE 150 MG TABLET TAKE ONE TABLET BY MOUTH EVER* METOPROLOL SUCCINATE ER 100 M* Take 0.5 tablets by mouth onc* BLOOD SUGAR DIAGNOSTIC STRIPS Use as instructed. Pt testing* FUROSEMIDE 20 MG TABLET Take 1 tablet by mouth once d* AMMONIUM LACTATE 12 % LOTION Apply 1 application to affect* MELATONIN 1 MG TABLET Take 1 mg by mouth daily at b* CHOLECALCIFEROL (VITAMIN D3) * Take 1,000 Units by mouth onc* Progress Notes: Jazmyn Hinson, AUD 12/14/2018 4:44 PM Signed [facility] - OUTPATIENT AUDIOLOGY SERVICES AUDIOLOGIC EVALUATION REPORT 12/14/2018 Page 1 of 3 Patient: Ezra Gonzalez : 1935 Referred by: Jo Perez (PCP: Yazmin) Referred for: Evaluation of suspected change in hearing, tinnitus, or balance. Referral documented: In an order in [facility]: OTHER ORDERS: [id number]: CONSULT TO AUDIOLOGY FOR DIAGNOSTIC TESTING [9003] (Order [id number]) Patient's major complaints: Progressively increasing difficulty in conversation, bill in background noise situations, distance, w/ incr need for repetition and vision, frequent bluffing. Pt denied otalgia, otorrhea, aural fullness, tinnitus; she had previous episodes of vertigo but none x 5yrs. She denied prior otologic history, family history of hearing loss, history of chemotherapy/radiatio n or IV ATB, she reports a fall w/ ? head trauma about 3 yrs ago (denied sequelae). 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 Med hx incl CAD, Afib, DM2, HTN, CKD, DJD, remote Ca colon, anxiety, GERD. ~~This patient was seen today for an initial audiologic evaluation, no previous test results are available for comparison. INTERPRETATION OF HEARING TESTS --Otoscopic evaluation shows canals clear, TMs unremarkable. Removed small piece of non-occluding wax from RT by curette w/o incident. --Pure tone audiometry using insert earphones demonstrates [id number] severe level sensorineural type hearing loss, worse LT. --Tympanometry (tested for minimal low frequency conductive component) indicates normal middle ear function bilaterally. --OAE (tested to confirm asymmetric hearing loss) were consistent with audiometry and suggested impaired cochlear function bilaterally, worse in LT ear. --Speech accuracy at conversational loudness without vision is fair in RT, poor in LT; improves to excellent at elevated loudness, suggesting good prognosis for hearing aid benefit. SUMMARY OF HEARING STATUS - Significant sensorineural HL bilaterally, worse in LT: pattern is consistent w/ age, noise, and medical history. 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 - Results do not suggest referral to ENT for acute otologic conditions at this time. - Hearing is considered adequate for conversation in good listening situations, but impaired for difficult environments or speakers. - Patient can be considered a hearing aid candidate at this time with Good prognosis for hearing aid benefit, however she is reluctant to pursue hearing aid trial at this time. RECOMMENDATIONS: -Follow up w/ referring physician. Report routed via [employer] inbox to Dr. Perez on 12/14/2018 -Re-evaluation of hearing loss in one yr, or as medically indicated to R/O progression. -The patient was counseled recommending use of noise protection when appropriate, including consider specialty custom fit Musician Ear Plugs. -The patient was counseled recommending effective communication strategies. -The patient was counseled regarding benefits/limitations of hearing aids and provided with instruction for follow-up w/ hearing aid provider of her choice. Test findings and audiologic recommendations were reviewed w/ the patient, who stated understanding. Ezra Gonzalez : 1935 Page 2 of 3 AUDIOMETRIC RESULTS Audiogram can be also be viewed in [employer] SmartForms:Audiology: Audiometry. OAE and tympanometry results can be viewed in [employer] Scanned Documents. RIGHT EAR Hearing Sensitivity: 250-500HZ: WNL; 750-2000Hz:mild; 3000-8000Hz: moderate-severe SNHL Word Recognition Score (order by difficulty 10 word list): Excellent (90%) at slt amplified loudness (fair at conversational loudness) Tympanometry: Type A : Normal ME function. Otoacoustic Emissions results: 750-3000Hz: WNL; 6488-6977: reduced; 8000Hz: absent. LEFT EAR Hearing Sensitivity: 250-500HZ: WNL; 750-3000Hz: moderate; 6000-8000Hz: severe SNHL Word Recognition Score (order by difficulty 10 word list): Excellent (90%) at amplified loudness (poor at conversational loudness) Tympanometry: Type A : Normal ME function. Otoacoustic Emissions results: 750-1000Hz: absent; 5089-1008: reduced; 6000-8000Hz: absent. William Hinson. Insulation Cupola Operator 12/14/2018 3:30 PM Ezra Gonzalez : 1935 Page 3 of 3 GARCÍA Abbreviation Definition Degree of hearing sensitivity dB range WNL within normal limits WNL 0 - 20 SNHL sensorineural hearing loss Mild 20-40 CHL conductive hearing loss Moderate 40-55 MHL mixed hearing loss Moderately-Severe 55-70 ME middle ear Severe 70-90 OAE Distortion Product Otoacoustic Emissions Profound 90 + TM tympanic membrane Disposition: Return in about 1 year (around 12/15/2019), or if symptoms worsen or fail to improve, for hearing eval. Follow-up and Disposition History Recorded Classic SmartForms filed during this visit: Audiometry Letter Text Normal [facility] OBSOLETEon 12-14-2018 OBSOLETE Refiman ([facility]) LISAEZRA ([id number]) 1935 F Date Time Provider Department 12/14/18 JO PEREZ During your visit today, we recorded the following information about you: Robert Diaz CMA 12/16/2018 1:00 PM Signed Patient called requesting the following refill. Pending Prescriptions Disp Refills RANITIDINE 150 MG TABLET 90 tablet 0 Sig: TAKE ONE TABLET BY MOUTH EVERY DAY SHAHEEN: Yes Last refill: 09/16/2018 Patient last appointment: 10/20/2018 Patient next appointment: 04/02/2019 Patient Phone numbers: [phone] (home) Request is for script(s) to be escript to pharmacy. Robert Diaz CMA Allergies As of Date: 12/14/2018 Noted Allergy Reaction CODEINE 03/20/2015 16 - Unknown CRESTOR (ROSUVASTATIN) 03/20/2015 14 - Other: See Comments Comments: Myalgias DEMEROL (MEPERIDINE) 03/20/2015 8 - GI Upset LATEX 03/20/2015 2 - Rash LIPITOR (ATORVASTATIN) 03/20/2015 14 - Other: See Comments Comments: Myalgias Date Reviewed: 11/27/2018 Reviewed by: Vika ([facility]) Brian - Fully Assessed Reason for Visit: Refill Request [94] Order(s):ranitidine (ZANTAC) 150 mg tabletTAKE ONE TABLET BY MOUTH EVERY DAYDisp: 90 tabletRfl: 0 Prescriptions as of 12/14/2018 Sig: RANITIDINE 150 MG TABLET TAKE ONE TABLET BY MOUTH EVER* SIMVASTATIN 20 MG TABLET TAKE ONE TABLET BY MOUTH ADITI* LISINOPRIL 5 MG TABLET TAKE ONE TABLET BY MOUTH once* JANTOVEN 2 MG TABLET TAKE 2MG BY MOUTH ON FRIDAY, * LANCETS Use as instructed METOPROLOL SUCCINATE ER 100 M* Take 0.5 tablets by mouth onc* BLOOD SUGAR DIAGNOSTIC STRIPS Use as instructed. 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] Essential hypertension [I10] Mixed hyperlipidemia [E78.2] Osteoarthritis [M19.90] Vitamin D deficiency [E55.9] Atrial fibrillation (HCC)- ablation 2011 [I48.* On anticoagulant therapy [Z79.01] Spinal stenosis [M48.00] Peripheral venous insufficiency [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 [Z96.642] INVALID FOR* Reactive airway disease [J45.909] INVALID FOR* S/P coronary artery stent placement- 2006 [Z95*INVALID FOR* Atherosclerosis of [place] coronary artery of na*INVALID FOR* Asymptomatic cholelithiasis [K80.20] INVALID FOR* Hemarthrosis involving knee joint [M25.069] INVALID FOR*11/13/2016 History of knee replacement, total-bilateral [*INVALID FOR* Presence of stent in coronary artery [Z95.5] INVALID FOR* OAB (overactive bladder) [N32.81] INVALID FOR* Incontinence of feces with fecal urgency [R15.9*INVALID FOR* Chronic kidney disease, stage 2, mildly decreas* Tubular adenoma of colon-= 2015 last scope [D12* Adjustment disorder with depressed mood [F43.21]INVALID FOR* Coronary arteriosclerosis [I25.10] Obesity, Class I, BMI 30-34.9 E66.9 [E66.9] INVALID FOR* Osteopenia of multiple sites [M85.89] INVALID FOR* Status post ablation of atrial fibrillation [Z9*INVALID FOR* Chronic anticoagulation [Z79.01] INVALID FOR* Prescriptions ordered this encounter Disp Refills Start End RANITIDINE 150 MG TABLET 90 t* 0 12/16/2018 Sig: TAKE ONE TABLET BY MOUTH EVERY DAY Medications Discontinued During This Encounter ranitidine (ZANTAC) 150 mg tablet 90 t* 0 09/16/2018 12/16/2018 Sig: TAKE ONE TABLET BY MOUTH EVERY DAY Disc: Reason for discontinue is not on file. Encounter Status:Closed by JO PEREZ on 12/16/18 [facility] PROGRESSon 12-14-2018 PROGRESS HNO ID: [id number] Author: JAZMYN Hinson (Aud) Service: ? Author Type: Insulation Cupola Operator Type: Progress Notes Filed: 12/14/2018 4:44 PM Note Text: [facility] OUTPATIENT AUDIOLOGY SERVICES AUDIOLOGIC EVALUATION REPORT 12/14/2018 Page 1 of 3 Patient: Ezra Gonzalez : 1935 Referred by: Jo Perez (PCP: Yazmin) Referred for: Evaluation of suspected change in hearing, tinnitus, or balance. Referral documented: In an order in [facility]: OTHER ORDERS: : CONSULT TO AUDIOLOGY FOR DIAGNOSTIC TESTING [9003] (Order [id number]) Patient's major complaints: Progressively increasing difficulty in conversation, bill in background noise situations, distance, w/ incr need for repetition and vision, frequent bluffing. Pt denied otalgia, otorrhea, aural fullness, tinnitus; she had previous episodes of vertigo but none x 5yrs. She denied prior otologic history, family history of hearing loss, history of chemotherapy/radiatio n or IV ATB, she reports a fall w/ ? head trauma about 3 yrs ago (denied sequelae). 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 Med hx incl CAD, Afib, DM2, HTN, CKD, DJD, remote Ca colon, anxiety, GERD. ~~This patient was seen today for an initial audiologic evaluation, no previous test results are available for comparison. INTERPRETATION OF HEARING TESTS --Otoscopic evaluation shows canals clear, TMs unremarkable. Removed small piece of non-occluding wax from RT by curette w/o incident. --Pure tone audiometry using insert earphones demonstrates [id number] severe level sensorineural type hearing loss, worse LT. --Tympanometry (tested for minimal low frequency conductive component) indicates normal middle ear function bilaterally. --OAE (tested to confirm asymmetric hearing loss) were consistent with audiometry and suggested impaired cochlear function bilaterally, worse in LT ear. --Speech accuracy at conversational loudness without vision is fair in RT, poor in LT; improves to excellent at elevated loudness, suggesting good prognosis for hearing aid benefit. SUMMARY OF HEARING STATUS - Significant sensorineural HL bilaterally, worse in LT: pattern is consistent w/ age, noise, and medical history. 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 - Results do not suggest referral to ENT for acute otologic conditions at this time. - Hearing is considered adequate for conversation in good listening situations, but impaired for difficult environments or speakers. - Patient can be considered a hearing aid candidate at this time with Good prognosis for hearing aid benefit, however she is reluctant to pursue hearing aid trial at this time. RECOMMENDATIONS: -Follow up w/ referring physician. Report routed via [employer] inbox to Dr. Perez on 12/14/2018 -Re-evaluation of hearing loss in one yr, or as medically indicated to R/O progression. -The patient was counseled recommending use of noise protection when appropriate, including consider specialty custom fit Musician Ear Plugs. -The patient was counseled recommending effective communication strategies. -The patient was counseled regarding benefits/limitations of hearing aids and provided with instruction for follow-up w/ hearing aid provider of her choice. Test findings and audiologic recommendations were reviewed w/ the patient, who stated understanding. Ezra Gonzalez : 1935 Page 2 of 3 AUDIOMETRIC RESULTS Audiogram can be also be viewed in [employer] SmartForms:Audiology: Audiometry. OAE and tympanometry results can be viewed in [employer]Be[employer] Scanned Documents. RIGHT EAR Hearing Sensitivity: 250-500HZ: WNL; 750-2000Hz:mild; 3000-8000Hz: moderate-severe SNHL Word Recognition Score (order by difficulty 10 word list): Excellent (90%) at slt amplified loudness (fair at conversational loudness) Tympanometry: Type A : Normal ME function. Otoacoustic Emissions results: 750-3000Hz: WNL; 6283-6505: reduced; 8000Hz: absent. LEFT EAR Hearing Sensitivity: 250-500HZ: WNL; 750-3000Hz: moderate; 6000-8000Hz: severe SNHL Word Recognition Score (order by difficulty 10 word list): Excellent (90%) at amplified loudness (poor at conversational loudness) Tympanometry: Type A : Normal ME function. Otoacoustic Emissions results: 750-1000Hz: absent; 1257-2492: reduced; 6000-8000Hz: absent. William Hinson. Insulation Cupola Operator 12/14/2018 3:30 PM Ezra Gonzalez : 1935 Page 3 of 3 GARCÍA Abbreviation Definition Degree of hearing sensitivity dB range WNL within normal limits WNL 0 - 20 SNHL sensorineural hearing loss Mild 20-40 CHL conductive hearing loss Moderate 40-55 MHL mixed hearing loss Moderately-Severe 55-70 ME middle ear Severe 70-90 OAE Distortion Product Otoacoustic Emissions Profound 90 + TM tympanic membrane Normal [facility] CNOVon 11-27-2018 CNOV Office Visit (AGCARDHWW) EZRA GONZALEZ ([id number]) 1935 F Date Time Provider Department 11/27/18 11:00 AM RICKEY CHAVARRIA AGCARDHWW During your visit today, we recorded the following information about you: Pulse Respiration Blood pressure Weight 66/minute 18/minute 124/70 80.7 kg Height 1.575 m Vika Torres CMA 11/27/2018 11:00 AM Signed Patient has no cardiac complaints today. Vika Chavarria MD 11/27/2018 11:24 AM Signed PRIMARY CARE PHYSICIAN: Jo Perez MD [id number] [facility] [address] [place] [address] HISTORY OF PRESENT ILLNESS: Ms. Gonzalez is a 83 year old female who presents today for a cardiovascular medicine follow-up visit. CARDIOVASCULAR PROBLEMS: 1. Essential hypertension - ICD9: 401.9, ICD10: I10 (primary diagnosis) 2. Obesity, Class I, BMI 30-34.9 - ICD9: 278.00, ICD10: E66.9 3. Mixed hyperlipidemia - ICD9: 272.2, ICD10: E78.2 4. Paroxysmal atrial fibrillation (HCC) - ICD9: 427.31, ICD10: I48.0 5. Chronic anticoagulation - ICD9: V58.61, ICD10: Z79.01 Are extremely well. Her partner last year. She has found herself a new partner. She is happy again. 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 Ezra denies any active cardiac symptoms. Specifically, the patient denies chest pain, shortness of breath, orthopnea, cough, edema, palpitations, PND, lightheadedness or syncope. The Patient claims compliance with medications and reports no side effects or allergies. CARDIAC RISK FACTORS: Smoking: No Diabetes: Yes Lipids: YES Obesity: Yes HTN: Yes Sedentary Lifestyle: No, Mowing, gardening. Family History of M.A.C.E: Yes CHF: No Stroke /TIA: No MOST RECENT CARDIAC TESTING: Echo: - Cardiac Catheterization: - Holter / Event Recorder : - Stress Test : -- TILT: - Device: - PAST CARDIAC EVENTS: A fib ablation, 2011, Dr [place] ALLERGIES Allergen Reactions - Codeine Unknown - Crestor [Rosuvastat* Other: See Comments Myalgias - Demerol [Meperidine] GI Upset - Latex Rash - Lipitor [Atorvastat* Other: See Comments Myalgias MEDICATIONS: simvastatin (ZOCOR) 20 mg tablet, TAKE ONE TABLET BY MOUTH DAILY AT BEDTIME lisinopril (ZESTRIL, PRINIVIL) 5 mg tablet, TAKE ONE TABLET BY MOUTH once DAILY JANTOVEN 2 mg tablet, TAKE 2MG BY MOUTH ON FRIDAY, FRIDAY AND FRIDAY AND 3MG ON ALL OTHER DAYS Lancets lancets, Use as instructed ranitidine (ZANTAC) 150 mg tablet, TAKE ONE TABLET BY MOUTH EVERY DAY metoprolol succinate ER (TOPROL XL) 100 mg Tb24, Take 0.5 tablets by mouth once daily. blood sugar diagnostic (BLOOD GLUCOSE TEST) test strip, Use as instructed. Pt testing 2-3 times a week. One touch test strips # 17 Diagnosis code E11.9 furosemide (LASIX) 20 mg tablet, Take 1 tablet by mouth once daily. ammonium lactate (LAC-HYDRIN) 12 % lotion, Apply 1 application to affected area as needed. melatonin 1 mg tablet, Take 1 mg by mouth daily at bedtime. cholecalciferol (VITAMIN D3) 1,000 unit tab, Take 1,000 Units by mouth once daily. REVIEW OF SYSTEMS: GENERAL: Negative for: Weight loss or gain, Fever or Chills, Weakness and Sleep difficulties. HEENT: Negative for: Headache, Impaired Vision, Glasses, Hearing Impairment, Ringing in Ears, Nosebleeds, Poor dental care, Bleeding Gums, Dentures NECK: Negative for: Swelling, Pain, Stiffness RESPIRATORY: Negative for: Cough, Blood in Sputum, Shortness of breath, Wheezing, Apnea GASTROINTESTINAL: Negative for: Trouble swallowing, Heartburn, Change in bowel habits, Blood in stool, Dark black stools MUSCULOSKELETAL: Negative for: Muscle or joint pain, Stiffness , Joint swelling NEUROLOGIC/PSYCHIATRI C: Negative for: Weakness, Paralysis, Numbness, Tingling, Tremor, Nervousness, Depressed mood, Memory loss SKIN: Negative for: Rashes, Itching HEMATOLOGICAL/LYMPHAT IC: Negative for: Easy bruising , Easy bleeding ENDOCRINE: Negative for: Heat or cold intolerance, Excessive sweating, Frequent urination, Frequent thirst PHYSICAL EXAMINATION: BP w/Orthostatic Vitals Date and Time Orthostatic BP Orthostatic Pulse BP Pulse BP Position BP Site BP Cuff Size 11/27/18 1052 -- -- 124/70 66 Sitting Left Arm Regular Adult Peak Flow Date and Time PF Resp 11/27/18 1052 -- 18 BP 124/70 Pulse 66 Resp 18 Ht 5' 2 (1.58m) Wt 178 lb (80.7kg) SpO2 98% BMI 32.55 kg/(m2). General: Well appearing, in no acute distress. Skin: No clubbing, no cyanosis. Eyes: Extra ocular movements intact Oropharynx: Teeth in good repair. Neck: No jugular venous distention, no carotid bruits, carotids have a normal upstroke, no palpable thyromegaly. Lungs: Clear to auscultation bilaterally, no wheezing or rhonchi. Heart: Regular rhythm, PMI not displaced, S1, S2 normal, no S3, no S4, no heaves, no rub and no murmur. Abdomen: Soft, nontender, bowel sounds normal, no palpable organomegaly, no bruits. Extremities: No peripheral edema . Grade 2/4 distal pulses bilaterally. Neuro: Oriented to person, place and time, alert, cooperative, gait coordinated. CARDIOVASCULAR MEDICINE TESTING: Electrocardiogram: NSR. I have personally reviewed the Electrocardiogram. IMPRESSION: Ms. Gonzalez is a 83 year old female with uncontrolled hypertension and hyperlipidemia. She is status post atrial fibrillation ablation. Remains in sinus rhythm. She has no active cardiac symptoms. Plan: Continue current medications follow-up in one year. During this 20 minute visit with greater than 50% of the time was spent in direct, [id number], contact with the patient for management and counseling. 1. Essential hypertension - ICD9: 401.9, ICD10: I10 (primary diagnosis) 2. Obesity, Class I, BMI 30-34.9 - ICD9: 278.00, ICD10: E66.9 3. Mixed hyperlipidemia - ICD9: 272.2, ICD10: E78.2 4. Paroxysmal atrial fibrillation (HCC) - ICD9: 427.31, ICD10: I48.0 5. Chronic anticoagulation - ICD9: V58.61, ICD10: Z79.01 Rickey Chavarria M.D. [facility] Referring Provider: SELF [[id number]] Allergies As of Date: 11/27/2018 Noted Allergy Reaction CODEINE 03/20/2015 16 - Unknown CRESTOR (ROSUVASTATIN) 03/20/2015 14 - Other: See Comments Comments: Myalgias DEMEROL (MEPERIDINE) 03/20/2015 8 - GI Upset LATEX 03/20/2015 2 - Rash LIPITOR (ATORVASTATIN) 03/20/2015 14 - Other: See Comments Comments: Myalgias Date Reviewed: 11/27/2018 Reviewed by: Vika CastroGuthrie Towanda [facility] Brian - Fully Assessed Reason for Visit: CARD Follow Up Annual [1232] Primary Visit Diagnosis:Essential hypertension [I10] Other Visit Diagnoses:Obesity, Class I, BMI 30-34.9 [E66.9] Mixed hyperlipidemia [E78.2] Paroxysmal atrial fibrillation (HCC) [I48.0] Chronic anticoagulation [Z79.01] Order(s):ECG B/O W INTERP (MED OFFICE) [ECG06] Order #: [id number] Prescriptions as of 11/27/2018 Sig: SIMVASTATIN 20 MG TABLET TAKE ONE TABLET BY MOUTH ADITI* LISINOPRIL 5 MG TABLET TAKE ONE TABLET BY MOUTH once* JANTOVEN 2 MG TABLET TAKE 2MG BY MOUTH ON FRIDAY, * LANCETS Use as instructed RANITIDINE 150 MG TABLET TAKE ONE TABLET BY MOUTH EVER* METOPROLOL SUCCINATE ER 100 M* Take 0.5 tablets by mouth onc* BLOOD SUGAR DIAGNOSTIC STRIPS Use as instructed. 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.642] INVALID FOR* Reactive airway disease [J45.909] INVALID FOR* S/P coronary artery stent placement- 2006 [Z95*INVALID FOR* Atherosclerosis of [place] coronary artery of na*INVALID FOR* Asymptomatic cholelithiasis [K80.20] INVALID FOR* Hemarthrosis involving knee joint [M25.069] INVALID FOR*11/13/2016 History of knee replacement, total-bilateral [*INVALID FOR* Presence of stent in coronary artery [Z95.5] INVALID FOR* OAB (overactive bladder) [N32.81] INVALID FOR* Incontinence of feces with fecal urgency [R15.9*INVALID FOR* Chronic kidney disease, stage 2, mildly decreas* Tubular adenoma of colon-= 2014 last scope [D12* Adjustment disorder with depressed mood [F43.21]INVALID FOR* Coronary arteriosclerosis [I25.10] Obesity, Class I, BMI 30-34.9 E66.9 [E66.9] INVALID FOR* Osteopenia of multiple sites [M85.89] INVALID FOR* Status post ablation of atrial fibrillation [Z9*INVALID FOR* Chronic anticoagulation [Z79.01] INVALID FOR* Visit Notes: >> Vika (Werner Torres FriNov 27, 2018 10:54 AM Status: Signed Patient has no cardiac complaints today. Vika Torres [facility] Disposition: Return in about 1 year (around 11/28/2019). Follow-up and Disposition History Recorded Letter Text Encounter Status:Closed by RICKEY CHAVARRIA MD on 11/27/18 Normal [facility] PROGRESSon 11-27-2018 PROGRESS HNO ID: [id number] Author: Rickey Chavarria Service: ? Author Type: Physician Type: Progress Notes Filed: 11/27/2018 11:24 AM Note Text: PRIMARY CARE PHYSICIAN: Jo Perez MD [address] [place] [address] HISTORY OF PRESENT ILLNESS: Ms. Gonzalez is a 83 year old female who presents today for a cardiovascular medicine follow-up visit. CARDIOVASCULAR PROBLEMS: 1. Essential hypertension - ICD9: 401.9, ICD10: I10 (primary diagnosis) 2. Obesity, Class I, BMI 30-34.9 - ICD9: 278.00, ICD10: E66.9 3. Mixed hyperlipidemia - ICD9: 272.2, ICD10: E78.2 4. Paroxysmal atrial fibrillation (HCC) - ICD9: 427.31, ICD10: I48.0 5. Chronic anticoagulation - ICD9: V58.61, ICD10: Z79.01 Are extremely well. Her partner last year. She has found herself a new partner. She is happy again. 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 Ezra denies any active cardiac symptoms. Specifically, the patient denies chest pain, shortness of breath, orthopnea, cough, edema, palpitations, PND, lightheadedness or syncope. The Patient claims compliance with medications and reports no side effects or allergies. CARDIAC RISK FACTORS: Smoking: No Diabetes: Yes Lipids: YES Obesity: Yes HTN: Yes Sedentary Lifestyle: No, Mowing, gardening. Family History of M.A.C.E: Yes CHF: No Stroke /TIA: No MOST RECENT CARDIAC TESTING: Echo: - Cardiac Catheterization: - Holter / Event Recorder : - Stress Test : -- TILT: - Device: - PAST CARDIAC EVENTS: A fib ablation, 2011, Dr Hills ALLERGIES Allergen Reactions - Codeine Unknown - Crestor [Rosuvastat* Other: See Comments Myalgias - Demerol [Meperidine] GI Upset - Latex Rash - Lipitor [Atorvastat* Other: See Comments Myalgias MEDICATIONS: simvastatin (ZOCOR) 20 mg tablet, TAKE ONE TABLET BY MOUTH DAILY AT BEDTIME lisinopril (ZESTRIL, PRINIVIL) 5 mg tablet, TAKE ONE TABLET BY MOUTH once DAILY JANTOVEN 2 mg tablet, TAKE 2MG BY MOUTH ON FRIDAY, FRIDAY AND FRIDAY AND 3MG ON ALL OTHER DAYS Lancets lancets, Use as instructed ranitidine (ZANTAC) 150 mg tablet, TAKE ONE TABLET BY MOUTH EVERY DAY metoprolol succinate ER (TOPROL XL) 100 mg Tb24, Take 0.5 tablets by mouth once daily. blood sugar diagnostic (BLOOD GLUCOSE TEST) test strip, Use as instructed. Pt testing 2-3 times a week. One touch test strips # 17 Diagnosis code E11.9 furosemide (LASIX) 20 mg tablet, Take 1 tablet by mouth once daily. ammonium lactate (LAC-HYDRIN) 12 % lotion, Apply 1 application to affected area as needed. melatonin 1 mg tablet, Take 1 mg by mouth daily at bedtime. cholecalciferol (VITAMIN D3) 1,000 unit tab, Take 1,000 Units by mouth once daily. REVIEW OF SYSTEMS: GENERAL: Negative for: Weight loss or gain, Fever or Chills, Weakness and Sleep difficulties. HEENT: Negative for: Headache, Impaired Vision, Glasses, Hearing Impairment, Ringing in Ears, Nosebleeds, Poor dental care, Bleeding Gums, Dentures NECK: Negative for: Swelling, Pain, Stiffness RESPIRATORY: Negative for: Cough, Blood in Sputum, Shortness of breath, Wheezing, Apnea GASTROINTESTINAL: Negative for: Trouble swallowing, Heartburn, Change in bowel habits, Blood in stool, Dark black stools MUSCULOSKELETAL: Negative for: Muscle or joint pain, Stiffness , Joint swelling NEUROLOGIC/PSYCHIATRI C: Negative for: Weakness, Paralysis, Numbness, Tingling, Tremor, Nervousness, Depressed mood, Memory loss SKIN: Negative for: Rashes, Itching HEMATOLOGICAL/LYMPHAT IC: Negative for: Easy bruising , Easy bleeding ENDOCRINE: Negative for: Heat or cold intolerance, Excessive sweating, Frequent urination, Frequent thirst PHYSICAL EXAMINATION: BP w/Orthostatic Vitals Date and Time Orthostatic BP Orthostatic Pulse BP Pulse BP Position BP Site BP Cuff Size 11/27/18 1052 -- -- 124/70 66 Sitting Left Arm Regular Adult Peak Flow Date and Time PF Resp 11/27/18 1052 -- 18 BP 124/70 Pulse 66 Resp 18 Ht 5' 2 (1.58m) Wt 178 lb (80.7kg) SpO2 98% BMI 32.55 kg/(m2). General: Well appearing, in no acute distress. Skin: No clubbing, no cyanosis. Eyes: Extra ocular movements intact Oropharynx: Teeth in good repair. Neck: No jugular venous distention, no carotid bruits, carotids have a normal upstroke, no palpable thyromegaly. Lungs: Clear to auscultation bilaterally, no wheezing or rhonchi. Heart: Regular rhythm, PMI not displaced, S1, S2 normal, no S3, no S4, no heaves, no rub and no murmur. Abdomen: Soft, nontender, bowel sounds normal, no palpable organomegaly, no bruits. Extremities: No peripheral edema . Grade 2/4 distal pulses bilaterally. Neuro: Oriented to person, place and time, alert, cooperative, gait coordinated. CARDIOVASCULAR MEDICINE TESTING: Electrocardiogram: NSR. I have personally reviewed the Electrocardiogram. IMPRESSION: Ms. Gonzalez is a 83 year old female with uncontrolled hypertension and hyperlipidemia. She is status post atrial fibrillation ablation. Remains in sinus rhythm. She has no active cardiac symptoms. Plan: Continue current medications follow-up in one year. During this 20 minute visit with greater than 50% of the time was spent in direct, [id number], contact with the patient for management and counseling. 1. Essential hypertension - ICD9: 401.9, ICD10: I10 (primary diagnosis) 2. Obesity, Class I, BMI 30-34.9 - ICD9: 278.00, ICD10: E66.9 3. Mixed hyperlipidemia - ICD9: 272.2, ICD10: E78.2 4. Paroxysmal atrial fibrillation (HCC) - ICD9: 427.31, ICD10: I48.0 5. Chronic anticoagulation - ICD9: V58.61, ICD10: Z79.01 Rickey Chvaarria M.D. [facility] Normal [facility] BONE DENSITY STUDY BY XRAY 7 [id number] 07-15-2017 BONE DENSITY STUDY BY XRAY [id number] Performed at [facility] APPROVED BY: Kemar Adams MD EXAMINATION: BONE MINERAL DENSITOMETRY (DEXA SCAN) EXAM DATE: 07/15/2017 09:43 CLINICAL INDICATION: 82-year-old postmenopausal female , follow-up osteoporosis screening. COMPARISON: DEXA scan 10/06/2013. DXA [employer] v.13.4 examination is performed on the lumbar spine, left forearm and right hip. FINDINGS: L1-L2 BMD is 1.067 g/cm2 which is 92% of peak bone mass compared to young normals which is -0.8 standard deviations relative to the mean of young normals (T-score). According to the World Health Organization criteria, this would be classified as normal . No statistically significant interval change compared to the prior exam. Right hip BMD is 1.029 g/cm2 which is 102% of peak bone mass compared to young normals which is 0.2 standard deviations relative to the mean of young normals (T-score). According to the World Health Organization criteria, this would be classified as normal . No statistically significant interval change compared to the prior exam. Right femoral neck BMD is 0.913 g/cm2 which is 88% of peak bone mass compared to young normals which is -0.9 standard deviations relative to the mean of young normals (T-score). According to the World Health Organization criteria, this would be classified as normal . Left radius 33% BMD is 0.629 g/cm2 which is 89% of peak bone mass compared to young normals which is -1.1 standard deviations relative to the mean of young normals (T-score). According to the World Health Organization criteria, this would be classified as osteopenia. No statistically significant interval change compared to the prior exam. IMPRESSION: Bone density now measures within the osteopenic range. No statistically significant interval change. * FRAX 10 YEAR PROBABILITY OF FRACTURE: Major Osteoporotic 10.7 % Hip 2.1 % Based on Femur Neck BMD * FRAX is a trademark of the [employer]'s [facility] Metabolic Bone Disease, a WHO Collaborating Dupage. This applies to men over 50 and to post menopausal women over 50 years of age. The 10 year probability of fracture may be lower than reported above if the patient has received treatment for osteopenia/osteoporos is. It is also less accurate the more severe the osteoporosis. Major Osteoporotic Fracture: clinical spine, forearm, hip or shoulder. RELATIVE FRACTURE RISK TABLE NOTE: This table applies to post-menopausal females. T-score Fracture risk 0 average risk for normal 40 year old -1 2 times the normal -2 4 times the normal -3 8 times the normaletc. GENERAL RECOMMENDATIONS FOR PREVENTION OF BONE LOSS:1. 1200 mg - 1500 mg calcium per day if no history of renal calculi for adults 50 years and over. 2. 800 - 1000 International Units of vitamin D3 per day if no history of renal calculi for adults 50 years and over. 3. Weight bearing exercise4. Advise against smoking. If currently smoking, recommend cessation.5. Avoid excessive use of caffeine, soft drinks, and alcoholic beverages. The National Osteoporosis Foundation recommends that treatment be considered for patients with T-scores of -2 or lower (-1 or lower if patient at high risk for accelerated bone loss). Normal [facility] MAMMOGRAM SCREENING WITH CAD IF PERFORMEDon 06-27-2017 MAMMOGRAM SCREENING WITH CAD IF PERFORMED Performed at [facility] APPROVED BY: Lucas Garrido MD #[id number] - MAMMOGRAM SCREENING WITH CAD IF PERFORMEDBILATERAL DIGITAL SCREENING MAMMOGRAM WITH CAD WITH MEDIOLATERAL OBLIQUE CRANIOCAUDAL: 06/27/2017CLINICAL: Routine screening mammogram. Patient reports no breast problems. Comparison is made to exams dated: 07/22/2016 mammogram - [facility], 06/26/2016 mammogram, 06/09/2015 mammogram, and 04/01/2014 mammogram - [facility]. There are scattered fibroglandular elements in both breasts. Current study was also evaluated with a Computer Aided Detection (CAD) system. No significant masses, calcifications, or other findings are seen in either breast. There has been no significant interval change. IMPRESSION: NEGATIVEThere is no mammographic evidence of malignancy. A 1 year screening mammogram is recommended. The patient was notified of the results. Lucas myers/penrad:06/27/2017 11:38:04 Front Facer: [facility] Summers[facility] 2 Mammogram BI-RADS: 1 Negative Normal [facility] Otheron 02-03-2015 CONVERTED CLINICAL HISTORY OPERATIVE PROCEDURE: Colonoscopy CLINICAL INFORMATION: Screening [facility] CONVERTED ELECTRONIC SIGNATURE MO PATRICK M.D., PATHOLOGIST (Electronic signature on file) Final Signed Out: 02/03/2015 12:44 [facility] CONVERTED FINAL DIAGNOSIS FINAL DIAGNOSI S: A) COLON, ASCENDING, BIOPSIES - FRAGMENTS OF TUBULAR ADENOMA. B) COLON, RANDOM BIOPSIES - NO PATHOLOGIC ABNORMALITIES. [facility] CONVERTED GROSS DESCRIPTION GROSS DESCRIPTION: A) Ascending colon polyps x4 Container labeled ascending colon polyp. Received are fragments of soft, lobulated montague tissue measuring 1 cm in aggregate diameter. Specimen totally submitted in a single cassette labeled A x 3. B) Random colon biopsies Container labeled random colon biopsy. Received are portions of soft montague-pink tissue measuring 0.7 cm in aggregate diameter. Specimen totally submitted in cassette B x 3. SMS:[facility] CONVERTED ORDERING PROVIDER Ordering Provider: SHI LESTER [facility] Otheron 04-19-2010 CONVERTED ELECTRONIC SIGNATURE RAVINDER HAN M.D., PATHOLOGIST (Electronic signature on file) Final Signed Out: 04/19/2010 14:33 [facility] CONVERTED FINAL DIAGNOSIS FINAL DIAGNOSI S: RIGHT SHOULDER, EXCISION - BONE AND ATTACHED CARTILAGE WITH DEGENERATIVE CHANGES. SYNOVIUM WITH NONSPECIFIC REACTIVE CHANGES AND FOCAL MILD CHRONIC INFLAMMATION. SPECIMEN: SHOULDER [facility] CONVERTED GROSS DESCRIPTION GROSS DESCRIPTION: Rt shoulder tissue The container is labeled right shoulder tissue. Received are portions of pink-montague soft tissue and red-montague bone measuring 3 x 3 x 1 cm in aggregate. Sample of soft tissue is submitted in cassette 1, sample of bone is submitted in cassette 2 following decal. SMS/lrs MICROSCOPIC DESCRIPTION: Slides reviewed. 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 SPECIMEN: FEMORAL HEAD [facility] CONVERTED GROSS DESCRIPTION GROSS DESCRIPTION: Left femoral head Received in a container labeled left femoral head. Received is a femoral head with attached femoral neck measuring 5 x 4 x 4 cm. Resection margin is smooth. The bone appears solid, red-montague. The articular surface demonstrates extensive nodularity and areas of eburnation. Attached to the bone are portions of soft tissue measuring 1 cm in aggregate. Sample of soft tissue submitted in cassette 1; sample of bone submitted in cassette 2-3 following decal. SMS:ATP:hlm MICROSCOPIC DESCRIPTION: Slides reviewed. SDS/gpl [facility] CONVERTED ORDERING PROVIDER Ordering Provider: CLOTILDE DOSS [facility] Thyroidon 08-02-2009 TSH Dylan TYLER M.D., PATHOLOGIST (Electronic signature on file) Final Signed Out: 08/02/2009 14:47 [facility] 05-11-2001 Cholesterol [Mass/Vol] Ordering Provider : SAE RESENDIZ [facility] Otheron 05-11-2001 CONVERTED ELECTRONIC SIGNATURE MICHAEL HAWTHORNE M.D., PATHOLOGIST (Electronic signature on file) Final Signed Out: 05/11/2001 11:39 [facility] CONVERTED FINAL DIAGNOSIS TISSUE, REMOVE D AT RELEASE OF RIGHT RING FINGER - FIBROCOLLAGENOUS TISSUE WITH FOCAL FIBROBLASTIC REACTION AND FOCAL MIXOID CHANGE. ATTACHED SMALL AMOUNT OF TISSUE CONSISTENT WITH SYNOVIUM. [facility] Vital Signs Date Time Vital Sign Value Performing Clinician Facility 09-10-2024 16:30-0400 Diastolic blood pressure 73 mm[Hg] Dr. Alexandra Hagen MD Work Phone: [facility] 09-10-2024 16:30-0400 Heart rate 79 /min Dr. Alexandra Hagen MD Work Phone: [facility] 09-10-2024 16:30-0400 Respiratory rate 20 /min Dr. Alexandra Hagen MD Work Phone: [facility] 09-10-2024 16:30-0400 SaO2% (BldA) [Mass fraction] 93 % Dr. Alexandra Hagen MD Work Phone: [facility] 09-10-2024 16:30-0400 Systolic blood pressure 118 mm[Hg] Dr. Alexandra Hagen MD Work Phone: [facility] 09-10-2024 16:07-0400 Body temperature 98.3 [degF] Dr. Alexandra Hagen MD Work Phone: [facility] 09-10-2024 14:19-0400 Body height 160.[address] Alexandra Hagen MD Work Phone: [facility] 09-10-2024 14:19-0400 Body mass index (BMI) [Ratio] 26.5 kg/m2 Dr. Alexandra Hagen MD Work Phone: [facility] 09-10-2024 14:19-0400 Body weight 68.[address] Alexandra Hagen MD Work Phone: 5(745)562-935157 [place] [address] 09-08-2024 15:30-0400 Heart rate 64 /min Dr. Alexandra Hagen MD Work Phone: 7(014)468-603366 [place] [address] 09-08-2024 15:30-0400 Respiratory rate 23 /min Dr. Alexandra Hagen MD Work Phone: 6(908)147-841766 [place] [address] 09-08-2024 15:30-0400 SaO2% (BldA) [Mass fraction] 97 % Dr. Alexandra Hagen MD Work Phone: 3(700)468-924566 [place] [address] 09-08-2024 12:22-0400 Body height 160.[address] Alexandra Hagen MD Work Phone: 4(286)201-611966 [place] [address] 09-08-2024 12:22-0400 Body mass index (BMI) [Ratio] 33.5 kg/m2 Dr. Alexandra Hagen MD Work Phone: 7(002)499-012466 [place] [address] 09-08-2024 12:22-0400 Body temperature 98 [degF] Dr. Alexandra Hagen MD Work Phone: 2(100)117-856966 [place] [address] 09-08-2024 12:22-0400 Body weight 85.[address] Alexandra Hagen MD Work Phone: 6(702)795-447466 [place] [address] 09-08-2024 12:22-0400 Diastolic blood pressure 70 mm[Hg] Dr. Alexandra Hagen MD Work Phone: 7(035)781-225566 [place] [address] 09-08-2024 12:22-0400 Systolic blood pressure 131 mm[Hg] Dr. Alexandra Hagen MD Work Phone: 5(923)633-175366 [place] [address] 07-01-2024 10:38-0400 Body height 160.[address] Alexandra Hagen MD Work Phone: [facility] 07-01-2024 10:38-0400 Body mass index (BMI) [Ratio] 30.8 kg/m2 Dr. Alexandra Hagen MD Work Phone: 8(198)864-545057 [place] [address] 07-01-2024 10:38-0400 Body weight 78.[address] Alexandra Hagen MD Work Phone: 1(683)262-928687 [address] 07-01-2024 10:38-0400 Diastolic blood pressure 85 mm[Hg] Dr. Alexandra Hagen MD Work Phone: 2(601)409-849366 [place] [address] 07-01-2024 10:38-0400 Heart rate 60 /min Dr. Alexandra Hagen MD Work Phone: 7(042)973-455866 [place] [address] 07-01-2024 10:38-0400 Respiratory rate 16 /min Dr. Alexandra Hagen MD Work Phone: 7(714)894-360587 [address] 07-01-2024 10:38-0400 Systolic blood pressure 184 mm[Hg] Dr. Alexandra Hagen MD Work Phone: 2(574)031-019287 [address] 05-10-2024 14:35-0500 Body height 160.[address] Alexandra Hagen MD Work Phone: 4(584)950-251466 [place] [address] 05-10-2024 14:35-0500 Body mass index (BMI) [Ratio] 30.9 kg/m2 Dr. Alexandra Hagen MD Work Phone: 7(260)621-383257 [place] [address] 05-10-2024 14:35-0500 Body temperature 97.8 [degF] Dr. Alexandra Hagen MD Work Phone: 4(267)635-467057 [place] [address] 05-10-2024 14:35-0500 Body weight 79.[address] Alexandra Hagen MD Work Phone: 5(528)409-333257 [place] [address] 05-10-2024 14:35-0500 Diastolic blood pressure 86 mm[Hg] Dr. Alexandra Hagen MD Work Phone: 9(539)377-225657 [place] [address] 05-10-2024 14:35-0500 Heart rate 75 /min Dr. Alexandra Hagen MD Work Phone: [facility] 05-10-2024 14:35-0500 Respiratory rate 16 /min Dr. Alexandra Hagen MD Work Phone: [facility] 05-10-2024 14:35-0500 SaO2% (BldA) [Mass fraction] 94 % Dr. Alexandra Hagen MD Work Phone: [facility] 05-10-2024 14:35-0500 Systolic blood pressure 140 mm[Hg] Dr. Alexandra Hagen MD Work Phone: [facility] 06-20-2023 11:10-0400 Diastolic blood pressure 92 mm[Hg] Sae Conde MD Work Phone: [facility] 06-20-2023 11:10-0400 Heart rate 88 /min Sae Conde MD Work Phone: [facility] 06-20-2023 11:10-0400 Systolic blood pressure 173 mm[Hg] Sae Conde MD Work Phone: [facility] 06-20-2023 05:34-0400 Body temperature 97.39 [degF] Sae Conde MD Work Phone: [facility] 06-20-2023 05:34-0400 Respiratory rate 20 /min Sae Conde MD Work Phone: [facility] 06-20-2023 05:34-0400 SaO2% (BldA) [Mass fraction] 95 % Sae Conde MD Work Phone: [facility] 06-17-2023 18:30-0400 Body height 160 cm Sae Conde MD Work Phone: [facility] 06-17-2023 18:30-0400 Body mass index (BMI) [Ratio] 30.83 kg/m2 Sae Conde MD Work Phone: [facility] 06-17-2023 18:30-0400 Body weight 78.93 kg Sae Conde MD Work Phone: [facility] 06-16-2023 11:02-0400 Body temperature 96.4 [degF] Dr. Rosemary Doran Work Phone: [facility] 06-16-2023 11:02-0400 Diastolic blood pressure 84 mm[Hg] Dr. Rosemary Doran Work Phone: [facility] 06-16-2023 11:02-0400 Heart rate 72 /min Dr. Rosemary Doran Work Phone: [facility] 06-16-2023 11:02-0400 Respiratory rate 16 /min Dr. Rosemary Doran Work Phone: [facility] 06-16-2023 11:02-0400 SaO2% (BldA) [Mass fraction] 96 % Dr. Rosemary Doran Work Phone: [facility] 06-16-2023 11:02-0400 Systolic blood pressure 157 mm[Hg] Dr. Rosemary Doran Work Phone: [facility] 06-16-2023 08:33-0400 Body height 160.[address] Rosemary Doran Work Phone: [facility] 06-16-2023 08:33-0400 Body mass index (BMI) [Ratio] 33.1 kg/m2 Dr. Rosemary Doran Work Phone: [facility] 06-16-2023 08:33-0400 Body weight 84.[address] Rosemary Doran Work Phone: [facility] 05-19-2023 11:21-0500 Body height 160.[address] Rosemary Doran Work Phone: [facility] 05-19-2023 11:21-0500 Body mass index (BMI) [Ratio] 31.6 kg/m2 Dr. Rosemary Doran Work Phone: [facility] 05-19-2023 11:21-0500 Body temperature 97.8 [degF] Dr. Rosemary Doran Work Phone: [facility] 05-19-2023 11:21-0500 Body weight 81.[address] Rosemary Doran Work Phone: [facility] 05-19-2023 11:21-0500 Diastolic blood pressure 90 mm[Hg] Dr. Rosemary Doran Work Phone: [facility] 05-19-2023 11:21-0500 Heart rate 88 /min Dr. Rosemary Doran Work Phone: [facility] 05-19-2023 11:21-0500 Respiratory rate 17 /min Dr. Rosemary Doran Work Phone: [facility] 05-19-2023 11:21-0500 SaO2% (BldA) [Mass fraction] 98 % Dr. Rosemary Doran Work Phone: [facility] 05-19-2023 11:21-0500 Systolic blood pressure 152 mm[Hg] Dr. Rosemary Doran Work Phone: [facility] 05-15-2023 09:01-0500 Body mass index (BMI) [Ratio] 31.6 kg/m2 Dr. Rosemary Doran Work Phone: [facility] 05-15-2023 09:01-0500 Body weight 81.[address] Rosemary Doran Work Phone: [facility] 05-15-2023 09:01-0500 Diastolic blood pressure 85 mm[Hg] Dr. Rosemary Doran Work Phone: [facility] 05-15-2023 09:01-0500 Heart rate 78 /min Dr. Rosemary Doran Work Phone: [facility] 05-15-2023 09:01-0500 Respiratory rate 18 /min Dr. Rosemary Doran Work Phone: [facility] 05-15-2023 09:01-0500 Systolic blood pressure 156 mm[Hg] Dr. Rosemary Doran Work Phone: [facility] 01-20-2023 08:05-0400 Body height 160.[address] Rosemary Doran Work Phone: [facility] 01-20-2023 08:05-0400 Body mass index (BMI) [Ratio] 32 kg/m2 Dr. Rosemary Doran Work Phone: [facility] 01-20-2023 08:05-0400 Body temperature 98 [degF] Dr. Rosemary Doran Work Phone: [facility] 01-20-2023 08:05-0400 Body weight 82.[address] Rosemary Doran Work Phone: [facility] 01-20-2023 08:05-0400 Diastolic blood pressure 90 mm[Hg] Dr. Rosemary Doran Work Phone: [facility] 01-20-2023 08:05-0400 Heart rate 88 /min Dr. Rosemary Doran Work Phone: [facility] 01-20-2023 08:05-0400 Respiratory rate 17 /min Dr. Rosemary Doran Work Phone: [facility] 01-20-2023 08:05-0400 SaO2% (BldA) [Mass fraction] 97 % Dr. Rosemary Doran Work Phone: [facility] 01-20-2023 08:05-0400 Systolic blood pressure 140 mm[Hg] Dr. Rosemary Doran Work Phone: [facility] 12-28-2022 11:09-0400 Body temperature 97.8 [degF] Dr. Rosemary Doran Work Phone: [facility] 12-28-2022 11:09-0400 Diastolic blood pressure 79 mm[Hg] Dr. Rosemary Doran Work Phone: [facility] 12-28-2022 11:09-0400 Heart rate 84 /min Dr. Rosemary Doran Work Phone: [facility] 12-28-2022 11:09-0400 Respiratory rate 16 /min Dr. Rosemary Doran Work Phone: [facility] 12-28-2022 11:09-0400 SaO2% (BldA) [Mass fraction] 96 % Dr. Rosemary Doran Work Phone: [facility] 12-28-2022 11:09-0400 Systolic blood pressure 169 mm[Hg] Dr. Rosemary Doran Work Phone: [facility] 12-27-2022 19:16-0400 Body height 160.[address] Rosemary Doran Work Phone: [facility] 12-27-2022 19:16-0400 Body mass index (BMI) [Ratio] 32.1 kg/m2 Dr. Rosemary Doran Work Phone: [facility] 12-27-2022 19:16-0400 Body weight 82.[address] Rosemary Doran Work Phone: [facility] 12-05-2022 09:25-0400 Body temperature 98.2 [degF] Dr. Rosemary Doran Work Phone: [facility] 12-05-2022 09:25-0400 Body weight 82.[address] Rosemary Doran Work Phone: [facility] 12-05-2022 09:25-0400 Diastolic blood pressure 85 mm[Hg] Dr. Rosemary Doran Work Phone: [facility] 12-05-2022 09:25-0400 Heart rate 90 /min Dr. Rosemary Doran Work Phone: [facility] 12-05-2022 09:25-0400 SaO2% (BldA) [Mass fraction] 95 % Dr. Rosemary Doran Work Phone: [facility] 12-05-2022 09:25-0400 Systolic blood pressure 145 mm[Hg] Dr. Rosemary Doran Work Phone: [facility] 11-18-2022 11:24-0400 Diastolic blood pressure 82 mm[Hg] Dr. Rosemary Doran Work Phone: [facility] 11-18-2022 11:24-0400 Heart rate 76 /min Dr. Rosemary Doran Work Phone: [facility] 11-18-2022 11:24-0400 Respiratory rate 15 /min Dr. Rosemary Doran Work Phone: [facility] 11-18-2022 11:24-0400 SaO2% (BldA) [Mass fraction] 98 % Dr. Rosemary Doran Work Phone: [facility] 11-18-2022 11:24-0400 Systolic blood pressure 137 mm[Hg] Dr. Rosemary Doran Work Phone: [facility] 11-18-2022 07:55-0400 Body height 160.[address] Rosemary Doran Work Phone: [facility] 11-18-2022 07:55-0400 Body mass index (BMI) [Ratio] 32.9 kg/m2 Dr. Rosemary Doran Work Phone: [facility] 11-18-2022 07:55-0400 Body weight 84.[address] Rosemary Doran Work Phone: [facility] 11-18-2022 07:50-0400 Body temperature 97.8 [degF] Dr. Rosemary Doran Work Phone: [facility] 11-15-2022 10:11-0400 Body mass index (BMI) [Ratio] 32.2 kg/m2 Dr. Rosemary Doran Work Phone: [facility] 11-15-2022 08:55-0400 Body temperature 97.7 [degF] Dr. Rosemary Doran Work Phone: [facility] 11-15-2022 08:55-0400 Diastolic blood pressure 78 mm[Hg] Dr. Rosemary Doran Work Phone: [facility] 11-15-2022 08:55-0400 Heart rate 68 /min Dr. Rosemary Doran Work Phone: [facility] 11-15-2022 08:55-0400 Respiratory rate 16 /min Dr. Rosemary Doran Work Phone: [facility] 11-15-2022 08:55-0400 SaO2% (BldA) [Mass fraction] 96 % Dr. Rosemary Doran Work Phone: [facility] 11-15-2022 08:55-0400 Systolic blood pressure 136 mm[Hg] Dr. Rosemary Doran Work Phone: [facility] 11-14-2022 13:12-0400 Body weight 82.[address] Rosemary Doran Work Phone: [facility] 11-14-2022 12:30-0400 Body temperature 97.6 [degF] Dr. Rosemary Doran Work Phone: [facility] 11-14-2022 12:30-0400 Diastolic blood pressure 101 mm[Hg] Dr. Rosemary Doran Work Phone: [facility] 11-14-2022 12:30-0400 Heart rate 64 /min Dr. Rosemary Doran Work Phone: [facility] 11-14-2022 12:30-0400 Respiratory rate 14 /min Dr. Rosemary Doran Work Phone: [facility] 11-14-2022 12:30-0400 SaO2% (BldA) [Mass fraction] 98 % Dr. Rosemary Doran Work Phone: [facility] 11-14-2022 12:30-0400 Systolic blood pressure 164 mm[Hg] Dr. Rosemary Doran Work Phone: [facility] 11-14-2022 11:02-0400 Body height 160.[address] Rosemary Doran Work Phone: [facility] 11-14-2022 11:02-0400 Body mass index (BMI) [Ratio] 33.7 kg/m2 Dr. Rosemary Doran Work Phone: [facility] 11-14-2022 11:02-0400 Body weight 86.[address] Rosemary Doran Work Phone: [facility] 10-15-2022 09:24-0400 Body height 160.[address] Rosemary Doran Work Phone: [facility] 10-15-2022 09:24-0400 Body mass index (BMI) [Ratio] 30.8 kg/m2 Dr. Rosemary Doran Work Phone: [facility] 10-15-2022 09:24-0400 Body weight 78.[address] Rosemary Doran Work Phone: [facility] 10-15-2022 09:24-0400 Diastolic blood pressure 87 mm[Hg] Dr. Rosemary Doran Work Phone: [facility] 10-15-2022 09:24-0400 Heart rate 73 /min Dr. Rosemary Doran Work Phone: [facility] 10-15-2022 09:24-0400 Respiratory rate 18 /min Dr. Rosemary Doran Work Phone: [facility] 10-15-2022 09:24-0400 Systolic blood pressure 149 mm[Hg] Dr. Rosemary Doran Work Phone: [facility] 09-18-2022 19:36-0400 Diastolic blood pressure 72 mm[Hg] Dr. Rosemary Doran Work Phone: [facility] 09-18-2022 19:36-0400 Systolic blood pressure 140 mm[Hg] Dr. Rosemary Doran Work Phone: [facility] 09-18-2022 08:05-0400 Body height 160.[address] Rosemary Doran Work Phone: [facility] 09-18-2022 08:05-0400 Body mass index (BMI) [Ratio] 31.8 kg/m2 Dr. Rosemary Doran Work Phone: [facility] 09-18-2022 08:05-0400 Body temperature 97.8 [degF] Dr. Rosemary Doran Work Phone: [facility] 09-18-2022 08:05-0400 Body weight 81.[address] Rosemary Doran Work Phone: [facility] 09-18-2022 08:05-0400 Heart rate 111 /min Dr. Rosemary Doran Work Phone: [facility] 09-18-2022 08:05-0400 Respiratory rate 17 /min Dr. Rosemary Doran Work Phone: [facility] 09-18-2022 08:05-0400 SaO2% (BldA) [Mass fraction] 99 % Dr. Rosemary Doran Work Phone: [facility] 09-08-2022 16:03-0400 Diastolic blood pressure 84 mm[Hg] Dr. Rosemary Doran Work Phone: [facility] 09-08-2022 16:03-0400 Heart rate 90 /min Dr. Rosemary Doran Work Phone: [facility] 09-08-2022 16:03-0400 Respiratory rate 20 /min Dr. Rosemary Doran Work Phone: [facility] 09-08-2022 16:03-0400 SaO2% (BldA) [Mass fraction] 97 % Dr. Rosemary Doran Work Phone: [facility] 09-08-2022 16:03-0400 Systolic blood pressure 157 mm[Hg] Dr. Rosemary Doran Work Phone: [facility] 09-08-2022 15:32-0400 Body mass index (BMI) [Ratio] 33.2 kg/m2 Dr. Rosemary Doran Work Phone: [facility] 09-08-2022 15:32-0400 Body weight [address] Rosemary Doran Work Phone: [facility] 09-08-2022 14:26-0400 Body temperature 96.8 [degF] Dr. Rosemary Doran Work Phone: [facility] 04-16-2022 14:26-0500 Body height 160.[address] Rosemary Doran Work Phone: [facility] 04-16-2022 14:26-0500 Body mass index (BMI) [Ratio] 30.6 kg/m2 Dr. Rosemary Doran Work Phone: [facility] 04-16-2022 14:26-0500 Body weight 78.[address] Rosemary Doran Work Phone: [facility] 04-16-2022 14:26-0500 Diastolic blood pressure 60 mm[Hg] Dr. Rosemary Doran Work Phone: [facility] 04-16-2022 14:26-0500 Heart rate 88 /min Dr. Rosemary Doran Work Phone: [facility] 04-16-2022 14:26-0500 Respiratory rate 18 /min Dr. Rosemary Doran Work Phone: [facility] 04-16-2022 14:26-0500 Systolic blood pressure 89 mm[Hg] Dr. Rosemary Doran Work Phone: [facility] 02-11-2022 02:02-0500 Diastolic blood pressure 82 mm[Hg] Dr. Rosemary Doran Work Phone: [facility] 02-11-2022 02:02-0500 Heart rate 74 /min Dr. Rosemary Doran Work Phone: [facility] 02-11-2022 02:02-0500 Respiratory rate 16 /min Dr. Rosemary Doran Work Phone: [facility] 02-11-2022 02:02-0500 SaO2% (BldA) [Mass fraction] 96 % Dr. Rosemary Doran Work Phone: [facility] 02-11-2022 02:02-0500 Systolic blood pressure 106 mm[Hg] Dr. Rosemary Doran Work Phone: [facility] 02-11-2022 00:07-0500 Body height 160.[address] Rosemary Doran Work Phone: [facility] Work Phone: 02-11-2022 00:07-0500 Body mass index (BMI) [Ratio] 33.1 kg/m2 Dr. Rosemary Doran Work Phone: [facility] 02-11-2022 00:07-0500 Body temperature 98.4 [degF] Dr. Rosemary Doran Work Phone: [facility] 02-11-2022 00:07-0500 Body weight 84.[address] Rosemary Doran Work Phone: [facility] 10-18-2021 10:26-0400 Body mass index (BMI) [Ratio] 33.1 kg/m2 Dr. Rosemary Doran Work Phone: [facility] Work Phone: 10-18-2021 10:26-0400 Body weight 84.[address] Rosemary Doran Work Phone: [facility] Work Phone: 10-18-2021 10:26-0400 Diastolic blood pressure 63 mm[Hg] Dr. Rosemary Doran Work Phone: [facility] Work Phone: 10-18-2021 10:26-0400 Heart rate 87 /min Dr. Rosemary Doran Work Phone: [facility] Work Phone: 10-18-2021 10:26-0400 Respiratory rate 20 /min Dr. Rosemary Doran Work Phone: [facility] Work Phone: 10-18-2021 10:26-0400 SaO2% (BldA) [Mass fraction] 96 % Dr. Rosemary Doran Work Phone: [facility] Work Phone: 10-18-2021 10:26-0400 Systolic blood pressure 101 mm[Hg] Dr. Rosemary Doran Work Phone: [facility] Work Phone: Encounters Encounter Date Encounter Type Care Provider Facility Start: 09-10-2024 Evaluation and management of inpatient Dr. Matthew Oro DO -Progressive Care Unit Work Phone: Start: 09-10-[address] Alexandra Hagen MD Work Phone: [facility] Work Phone: Start: 09-08-2024 End: 09-08-2024 Emergency department patient visit Dr. Alexandra Hagen MD Work Phone: -Emergency Department Work Phone: Start: 08-18-2024 End: 08-18-2024 ambulatory Alexandra Hagen Facility:[facility] Start: 08-18-2024 End: 08-18-2024 Departed Referred [facility] Work Phone: Start: 08-18-2024 Registered Referred [facility] Work Phone: Start: 07-19-2024 End: 07-19-[address] Alexandra Hagen MD Work Phone: [facility] Work Phone: Start: 07-19-2024 End: 07-19-2024 Departed Referred [facility] Work Phone: Start: 07-19-2024 End: 07-19-2024 ambulatory Alexandra Hagen Facility:[facility] Start: 07-01-2024 End: 07-01-[address] Cesar Cole MD -[facility] Work Phone: Start: 07-01-2024 End: 07-01-2024 ambulatory Alexandra Hagen [place] [place]: 06-16-2024 End: 06-16-[address] Alexandra Hagen MD Work Phone: [facility] Work Phone: Start: 06-16-2024 End: 06-16-[address] [facility] Work Phone: Start: 06-16-[address] Chucky leger MD -[facility] Work Phone: Start: 06-16-2024 End: 06-16-2024 ambulatory Alexandra S Fernandoiff Facility:[facility] Start: 06-09-2024 End: 06-09-[address] Alexandra Hagen MD Work Phone: [facility] Work Phone: Start: 06-09-2024 End: 06-09-[address] Chucky Ochoa MD [facility] Work Phone: Start: 06-09-2024 End: 06-09-2024 ambulatory Alexandra S Xiao Facility:[facility] Start: 05-19-2024 End: 05-19-[address] Alexandra Hagen MD Work Phone: [facility] Work Phone: Start: 05-19-2024 End: 05-19-2024 Departed Referred Cesar Cole MD -[facility] Work Phone: Start: 05-19-2024 Registered Referred Cesar Cole MD - [facility] Work Phone: Start: 05-19-2024 End: 05-19-2024 ambulatory Alexandra S Jolliff Facility:[facility] Start: 05-12-2024 ambulatory Alexandra S Xiao Facility: [facility] Start: 05-12-2024 Registered Referred Anant Juarez MD -[facility] Work Phone: Start: 05-10-2024 End: 05-10-[address] Anant Juarez MD -[facility] Work Phone: Start: 05-10-2024 End: 05-10-2024 ambulatory Alexandra S Jojesseiff [place] [place]: 05-05-2024 End: 05-05-[address] Alexandra Hagen MD Work Phone: [facility] Work Phone: Start: 05-05-2024 End: 05-05-[address] [facility] Work Phone: Start: 05-05-2024 Registered Referred [facility] Work Phone: Start: 05-05-2024 End: 05-05-2024 ambulatory Alexandra Hagen Facility:[facility] Start: 04-28-2024 End: 04-28-[address] Alexandra Hagen MD Work Phone: [facility] Work Phone: Start: 04-28-2024 End: 04-28-[address] [facility] Work Phone: Start: 04-28-2024 End: 04-28-2024 ambulatory Chucky MARTINEZ Facility:[facility] Start: 04-14-2024 ambulatory Chucky MARTINEZ Facil ity:[facility] Start: 04-14-[address] [facility] Work Phone: Start: 04-09-2024 End: 04-09-[address] Ch[facility] Work Phone: Start: 04-09-2024 End: 04-09-2024 ambulatory Chucky MARTINEZ Facility:[facility] Start: 04-06-2024 End: 04-06-[address] [facility] Work Phone: Start: 04-05-2024 End: 04-06-2024 ambulatory Chucky MARTINEZ Facility:[facility] Start: 04-05-[address] [facility] Work Phone: Start: 03-29-2024 ambulatory Chucky Don OLS Facil ity:[facility] Start: 03-29-[address] [facility] Work Phone: Start: 03-26-2024 ambulatory Chucky Ochoa OLS Facil ity:[facility] Start: 03-26-[address] [facility] Work Phone: Start: 03-25-2024 ambulatory Chucky Don OLS Facil ity:[facility] Start: 03-25-[address] Ch[facility] Work Phone: Start: 03-19-2024 ambulatory Chucky Ochoa OLS Facil ity:[facility] Start: 03-19-[address] Ch[facility] Work Phone: Start: 03-17-2024 ambulatory Chucky Don OLS Facil ity:[facility] Start: 03-17-[address] [facility] Work Phone: Start: 03-10-2024 ambulatory Chucky Don OLS Facil ity:[facility] Start: 03-10-[address] [facility] Work Phone: Start: 03-08-2024 ambulatory Chucky Ochoa OLS Facil ity:[facility] Start: 03-08-[address] [facility] Work Phone: Start: 03-04-2024 ambulatory Chucky Ochoa OLS Facil ity:[facility] Start: 03-04-[address] [facility] Work Phone: Start: 02-05-2024 End: 02-05-[address] Ch[facility] Work Phone: Start: 02-05-2024 End: 02-05-2024 ambulatory Chucky Ochoa OLS Facility:[facility] Start: 01-08-2024 End: 01-08-2024 ambulatory Chucky Ochoa OLS Facility:[facility] Start: 12-26-2023 End: 12-26-2023 ambulatory Chucky Ochoa OLS Facility:[facility] Start: 12-19-2023 End: 12-19-2023 ambulatory Chucky Ochoa OLS Facility:[facility] Start: 12-18-2023 End: 12-18-2023 ambulatory Chucky Ochoa OLS Facility:[facility] Start: 11-20-2023 ambulatory Chucky Ochoa OLS Facil ity:[facility] Start: 11-05-2023 End: 11-05-2023 ambulatory Chucky Ochoa OLS Facility:[facility] Start: 11-04-2023 End: 11-04-2023 ambulatory Alexandra S Jolliff Facility:[facility] Start: 10-28-2023 End: 10-28-2023 ambulatory Chucky Ochoa OLS Facility:[facility] Start: 10-24-2023 End: 10-24-2023 ambulatory Alexandra S Jolliff Facility:[facility] Start: 10-21-2023 End: 10-21-2023 ambulatory Alexandra S Jolliff Facility:[facility] Start: 10-15-2023 End: 10-15-2023 ambulatory Alexandra S Jolliff Facility:[facility] Start: 10-10-2023 End: 10-10-2023 ambulatory Alexandra S Jolliff Facility:[facility] Start: 09-22-2023 End: 09-22-2023 ambulatory Alexandra S Jolliff [place] [place] Start: 09-22-2023 End: 09-22-2023 ambulatory Alexandra S Jolliff Facility:[facility] Start: 06-30-2023 End: 06-30-[address] Rosemary Doran Work Phone: [facility] Work Phone: Start: 06-30-2023 End: 06-30-[address] Rosemary Doran Work Phone: [facility] Work Phone: Start: 06-16-2023 End: 06-20-2023 Evaluation and management of inpatient [facility] Start: 06-16-2023 End: 06-20-2023 Evaluation and management of inpatient Sae Conde MD Work Phone: [facility] Comment on above: Closed displaced fra cture of medial condyle of right humerus, initial encounter (Primary Dx) Start: 06-16-2023 Non-patient / Non-visit Dr. Slim Doran Work Phone: [facility] Start: 06-16-2023 End: 06-16-2023 Emergency department patient visit Dr. Rosemary Doran Work Phone: [facility]-Emergency Department Work Phone: Start: 05-30-2023 End: 05-30-[address] Rosemary Doran Work Phone: [facility] Work Phone: Start: 05-30-2023 End: 05-30-[address] Rosemary Doran Work Phone: [facility] Work Phone: Start: 05-19-2023 End: 05-19-[address] Rosemary Doran Work Phone: [facility] Work Phone: Start: 05-15-2023 End: 05-15-[address] Rosemary Doran Work Phone: [facility] Work Phone: Start: 05-12-2023 End: 05-12-[address] Rosemary Doran Work Phone: [facility] Work Phone: Start: 05-12-[address] Rosemary Doran Work Phone: [facility] Work Phone: Start: 05-01-2023 End: 05-01-[address] Rosemary Doran Work Phone: [facility] Work Phone: Start: 05-01-2023 End: 05-01-[address] Rosemary Doran Work Phone: [facility] Work Phone: Start: 04-17-2023 End: 04-17-[address] Rosemary Doran Work Phone: [facility] Work Phone: Start: 04-17-2023 End: 04-17-[address] Rosemary Doran Work Phone: [facility] Work Phone: Start: 04-17-[address] Rosemary Doran Work Phone: [facility] Work Phone: Start: 03-20-2023 End: 03-20-[address] Rosemary Doran Work Phone: [facility] Work Phone: Start: 02-21-2023 End: 02-21-[address] Rosemary Doran Work Phone: [facility] Work Phone: Start: 02-21-2023 End: 02-21-[address] Rosemary Doran Work Phone: [facility] Work Phone: Start: 01-20-2023 End: 01-20-[address] Rosemary Doran Work Phone: [facility] Work Phone: Start: 01-20-2023 End: 01-20-[address] Rosemary Doran Work Phone: [facility] Work Phone: Start: 01-20-2023 End: 01-20-[address] Rosemary Doran Work Phone: [facility] Work Phone: Start: 01-16-2023 End: 01-16-[address] Rosemary Doran Work Phone: [facility] Work Phone: Start: 01-16-2023 End: 01-16-[address] Rosemary Doran Work Phone: [facility] Work Phone: Start: 12-28-2022 Non-patient / Non-visit Dr. Slim Doran Work Phone: [facility] Work Phone: Start: 12-27-2022 Non-patient / Non-visit Dr. Slim Doran Work Phone: [facility] Work Phone: Start: 12-27-2022 End: 12-28-2022 Evaluation and management of inpatient Dr. Rosemary Doran Work Phone: [facility]-Progressive Care Unit Work Phone: Start: 12-27-2022 End: 12-28-[address] Rosemary Doran Work Phone: [facility] Work Phone: Start: 12-19-2022 End: 12-19-[address] Rosemary Doran Work Phone: [facility] Work Phone: Start: 12-19-2022 End: 12-19-[address] Rosemary Doran Work Phone: [facility] Work Phone: Start: 12-19-[address] Rosemary Doran Work Phone: [facility] Work Phone: Start: 12-09-2022 End: 12-09-[address] Rosemary Doran Work Phone: [facility] Work Phone: Start: 12-09-2022 End: 12-09-[address] Rosemary Doran Work Phone: [facility] Work Phone: Start: 12-09-[address] Rosemary Doran Work Phone: [facility] Work Phone: Start: 12-05-2022 End: 12-05-[address] Rosemary Doran Work Phone: [facility] Work Phone: Start: 11-20-2022 End: 11-20-[address] Rosemary Doran Work Phone: [facility] Work Phone: Start: 11-20-2022 End: 11-20-[address] Rosemary Doran Work Phone: [facility] Work Phone: Start: 11-20-[address] Rosemary Doran Work Phone: [facility] Work Phone: Start: 11-18-2022 End: 11-18-2022 Emergency department patient visit Dr. Rosemary Doran Work Phone: [facility]-Emergency Department Work Phone: Start: 11-15-2022 Non-patient / Non-visit Dr. Slim Doran Work Phone: [facility] Work Phone: Start: 11-14-2022 Non-patient / Non-visit Dr. Slim Doran Work Phone: [facility] Start: 11-14-2022 Non-patient / Non-visit Dr. Slim Doran Work Phone: [facility] Work Phone: Start: 11-14-2022 End: 11-15-2022 Evaluation and management of inpatient Dr. Rosemary Doran Work Phone: [facility]-Progressive Care Unit Work Phone: Start: 11-14-[address] Marcelo Doran Work Phone: [facility] Work Phone: Start: 10-23-2022 End: 10-23-[address] Rosemary Doran Work Phone: [facility] Work Phone: Start: 10-23-2022 End: 10-23-[address] Rsoemary Doran Work Phone: [facility] Work Phone: Start: 10-22-2022 End: 10-22-[address] Rosemary Doran Work Phone: [facility] Work Phone: Start: 10-22-2022 End: 10-22-[address] Rosemary Doran Work Phone: [facility] Work Phone: Start: 10-22-[address] Sada Doran Work Phone: [facility] Work Phone: Start: 10-15-2022 End: 10-15-[address] Rosemary Doran Work Phone: [facility] Work Phone: Start: 09-26-2022 Non-patient / Non-visit Dr. Slim Doran Work Phone: [facility] Start: 09-26-2022 End: 09-26-[address] Rosemary Doran Work Phone: [facility] Work Phone: Start: 09-26-2022 End: 09-26-[address] Rosemary Doran Work Phone: [facility] Work Phone: Start: 09-18-2022 End: 09-18-[address] Rosemary Doran Work Phone: [facility] Work Phone: Start: 09-18-2022 End: 09-18-[address] Rosemary Doran Work Phone: [facility] Start: 09-13-2022 End: 09-13-[address] [facility] Start: 09-08-2022 End: 09-08-2022 Emergency department patient visit Dr. Rosemary Doran Work Phone: [facility] Start: 09-06-2022 End: 09-06-[address] Rosemary Doran Work Phone: [facility] Start: 09-05-2022 End: 09-05-[address] Rosemary Doran Work Phone: [facility] Start: 08-08-2022 End: 08-08-[address] Rosemary Doran Work Phone: [facility] Start: 06-26-2022 End: 06-26-[address] Rosemary Doran Work Phone: [facility] Work Phone: Start: 06-26-2022 End: 06-26-[address] Rosemary Doran Work Phone: [facility] Start: 06-04-2022 End: 06-04-[address] Rosemary Doran Work Phone: [facility] Work Phone: Start: 06-04-2022 End: 06-04-[address] Rosemary Doran Work Phone: [facility] Start: 04-16-2022 End: 04-16-[address] Rosemary Doran Work Phone: [facility] Start: 02-11-2022 End: 02-11-2022 Emergency department patient visit Dr. Rosemary Doran Work Phone: [facility] Start: 10-18-2021 End: 10-18-[address] Rosemary Doran Work Phone: [facility] Start: 10-12-2019 End: 10-12-2019 Refill Jo Perez Work Phone: [facility] Comment on above: Refill Request; Refi ll Request Start: 02-11-2018 Patient encounter ROSA ELENA CORNELL Ayala lity:[facility] Start: 01-05-2018 End: 01-05-2018 Patient encounter JO PEREZ Facility:[facility] Start: 07-21-2017 End: 07-21-2017 Patient encounter RICKEY CHAVARRIA Facility:[facility] Start: 07-15-2017 Patient encounter JO PEREZ Facility:[facility] Start: 07-07-2017 End: 07-07-2017 Patient encounter ALEXRUBINA PEREZ Facility:[facility] Start: 06-27-2017 End: 06-27-2017 Patient encounter JO PEREZ Facility:[facility] Start: 06-11-2017 Patient encounter JO PEREZ Facility:[facility] Start: 02-01-2015 End: 02-01-2015 Patient encounter procedure Shi Lester Work Phone: [facility] Start: 02-01-2015 Results Only Shi ford Work Phone: [facility] Start: 04-17-2010 End: 04-17-2010 Patient encounter procedure Cruz Sanchez Work Phone: [facility] Start: 04-17-2010 Results Only Cruz goss Work Phone: [facility] Start: 07-31-2009 End: 07-31-2009 Patient encounter procedure Clotilde Doss Work Phone: [facility] Start: 07-31-2009 Results Only Clotilde murray Work Phone: [facility] Start: 05-07-2001 End: 05-07-2001 Patient encounter procedure Sae Resendiz Work Phone: [facility] Start: 05-07-2001 Results Only Sae rosario Work Phone: [facility] Procedures Date Procedure Procedure Detail Performing Clinician Start: 09-10-2024 Urnls dip stick/tabl et reagent auto microscopy Dr. Alexandra Hagen MD Work Phone: Start: 09-10-[address] Alexandra Hagen MD Work Phone: Start: 09-10-2024 CT angiography of he ad and neck Dr. Alexandra Hagen MD Work Phone: Start: 09-10-2024 CT of head without contrast Dr. Alexandra Hagen MD Work Phone: Start: 09-08-[address] Alexandra Hagen MD Work Phone: Start: 06-20-2023 Glucose quantitative blood xcpt reagent strip Connie Perez COMPUTER APPLICATIONS INSTRUCTOR - GLASS TECHNICIAN/INSTALLER Work Phone: Start: 06-20-2023 Prothrombin time Sonal hahn Perez COMPUTER APPLICATIONS INSTRUCTOR - GLASS TECHNICIAN/INSTALLER Work Phone: Start: 06-19-2023 Glucose quantitative blood xcpt reagent strip Connie Perez COMPUTER APPLICATIONS INSTRUCTOR - GLASS TECHNICIAN/INSTALLER Work Phone: Start: 06-19-2023 Glucose quantitative blood xcpt reagent strip Connie Perez COMPUTER APPLICATIONS INSTRUCTOR - GLASS TECHNICIAN/INSTALLER Work Phone: Start: 06-19-2023 Glucose quantitative blood xcpt reagent strip Connie Perez COMPUTER APPLICATIONS INSTRUCTOR - GLASS TECHNICIAN/INSTALLER Work Phone: Start: 06-19-2023 Prothrombin time Merlenedi th Perez COMPUTER APPLICATIONS INSTRUCTOR - GLASS TECHNICIAN/INSTALLER Work Phone: Start: 06-19-2023 Glucose quantitative blood xcpt reagent strip Connie Perez COMPUTER APPLICATIONS INSTRUCTOR - GLASS TECHNICIAN/INSTALLER Work Phone: Start: 06-19-2023 Basic metabolic pane l calcium total Connie Perez COMPUTER APPLICATIONS INSTRUCTOR - GLASS TECHNICIAN/INSTALLER Work Phone: Start: 06-18-2023 Glucose quantitative blood xcpt reagent strip Benitez Givens MD Work Phone: Start: 06-18-2023 FL GUIDANCE OR USE O NLY - NON-RESULTABLE Benitez Givens MD Work Phone: Start: 06-18-2023 End: 06-18-2023 Optx humeral shft fx w/plate/screws w/wocerclage Benitez Givens MD Work Phone: Start: 06-18-2023 Glucose quantitative blood xcpt reagent strip Generic Provider Poct Start: 06-18-2023 Basic metabolic pane l calcium total Connie Perez COMPUTER APPLICATIONS INSTRUCTOR - [facility] Work Phone: Start: 06-17-2023 Glucose quantitative blood xcpt reagent strip Generic Provider Poct Start: 06-17-2023 Prothrombin time Devinhe chastity Dinero MD Work Phone: Start: 06-17-2023 Radiologic exam ches t single view Shayne Fonseca MD Work Phone: Start: 06-17-2023 Ecg routine ecg w/le ast 12 lds trcg only w/o i&r Shayne Fonseca MD Work Phone: Start: 06-16-2023 Ct upper extremity w /o contrast material Deondre Kaufman MD Work Phone: Start: 06-16-2023 Antibody screen JAYSHREE CORTEZ Comment on above: Performed By: #### L [id number] ####Bridge Design Engineer: ALEXANDRA BUSTAMANTE ([phone])[facility] ([facility])[address] [place] [address] Start: 06-16-2023 End: 06-16-2023 Radex shoulder complete minimum 2 views Madeleine Hanks MD Work Phone: Start: 06-16-2023 ABO and Rh group [Ty pe] in Blood by Confirmatory method Ewa Tenorio PA Work Phone: Start: 06-16-2023 Basic metabolic pane l calcium total Ewa Morel Jordan PA Work Phone: Start: 06-16-2023 Blood typing serolog ic abo Ewa Morel Jordan PA Work Phone: Start: 06-16-2023 Plain chest X-ray Dr. Hope Doran Work Phone: Start: 06-16-2023 Plain x-ray of elbow Dr Vance Doran Work Phone: Start: 06-16-2023 CT of head without contrast Dr. Rosemary Doran Work Phone: Start: 12-27-2022 MRI of brain with contrast Dr. Rosemary Doran Work Phone: Start: 12-27-2022 Plain chest X-ray Dr. Hope Doran Work Phone: Start: 12-27-2022 CT angiography of he ad and neck Dr. Rosemary Doran Work Phone: Start: 12-27-2022 CT of head without contrast Dr. Rosemary Doran Work Phone: Start: 11-18-2022 CT of head without contrast Dr. Rosemary Doran Work Phone: Start: 11-14-2022 MRI of brain without contrast Dr. Rosemary Doran Work Phone: Start: 11-14-2022 Plain chest X-ray Dr. Hope Doran Work Phone: Start: 11-14-2022 CT angiography of he ad and neck Dr. Rosemary Doran Work Phone: Start: 11-14-2022 CT of head without contrast Dr. Rosemary Doran Work Phone: Start: 10-23-2022 MRI of cervical spine Maria Teresa Doran Work Phone: Start: 10-23-2022 MRI of lumbar spine Dr. Rosemary Doran Work Phone: Start: 09-17-[address] Sada Doran Work Phone: Start: 09-08-2022 CT angiography of he ad and neck Dr. Rosemary Doran Work Phone: Start: 09-06-2022 MRI of brain with contrast Dr. Rosemary Doran Work Phone: Start: 06-04-2022 Radiography of thora cic spine Dr. Rosemary Doran Work Phone: Start: 02-11-2022 Plain chest X-ray Dr. Hope Doran Work Phone: Start: 02-01-2015 CONVERTED SURGICAL PATHOLOGY Shi Lester Work Phone: Start: 04-17-2010 CONVERTED SURGICAL PATHOLOGY Cruz Sanchez Work Phone: Start: 07-31-2009 CONVERTED SURGICAL PATHOLOGY Clotilde Doss Work Phone: Start: 02-14-2007 History of placement of stent for coronary artery disease History of coronary artery stent placement Dr. Cesar Cole MD Comment on above: PCI-JOE-Mid LCx w/ 2 .5 x 20 mm Taxus Stent 02/14/2007 Start: 05-07-2001 CONVERTED SURGICAL PATHOLOGY Sae Resendiz Work Phone: Plan of Treatment Date Care Activity Detail Author Start: 09-11-2024 Complete blood count [facility] Start: 09-10-2024 Aspiration precautions [facility] Start: 09-10-2024 Assessment of risk o f venous thromboembolism [facility] Start: 09-10-2024 Cardiac monitoring [facility] Start: 09-10-2024 Catheterization of vein [facility] Start: 09-10-2024 Consultation [facility] Start: 09-10-2024 Continuous pulse oximetry [facility] Start: 09-10-2024 Electroencephalogram [facility] Start: 09-10-2024 Elevation of head of bed [facility] Start: 09-10-2024 Exercises [facility] Start: 09-10-2024 Insertion of cathete r into peripheral vein [facility] Start: 09-10-2024 Notification of physician [facility] Start: 09-10-2024 Oxygen therapy [facility] Start: 09-10-2024 Patient referral to dietitian [facility] Start: 09-10-2024 Providing care accor ding to standard [facility] Start: 09-10-2024 Referral to occupati onal therapist [facility] Start: 09-10-2024 Referral to service [facility] Start: 09-10-2024 Speech therapy assessment [facility] Start: 09-10-2024 Telemedicine consult ation with patient [facility] Start: 09-10-2024 Tobacco use cessatio n education [facility] Start: 09-10-2024 Vital signs measurements [facility] Start: 09-10-2024 End: 09-10-2024 [facility] Start: 09-10-2024 Verification routine [facility] Start: 09-10-2024 MRI of brain without contrast Brain without Contrast [facility] Start: 09-10-2024 Admission procedure [facility] Start: 09-10-2024 [facility] Start: 09-10-2024 Bacteria identified in Urine by Culture Urine Culture [facility] Start: 09-10-2024 Oxygen therapy [facility] Start: 09-10-2024 [facility] Start: 09-08-2024 Lamotrigine measurement [facility] Start: 01-06-2024 Urine microalbumin profile DTA P,TDAP,TD (1 - Tdap) [facility] Comment on above: Postponed from 06/23 (Declined at this time) Start: 07-28-2023 ADVANCE DIRECTIVE DISCUSSION A DVANCE DIRECTIVE DISCUSSION [facility] Start: 06-16-2023 Application long arm splint shoulder hand APPLY LONG ARM SPLINT [facility] Start: 06-16-2023 [facility] Start: 03-31-2023 Medicare Advantage A nnual Wellness Visit Medicare Advantage Annual Wellness Visit [facility] Start: 01-20-2023 Serum immunofixation [facility] Start: 01-20-2023 Urine immunofixation [facility] Start: 12-28-2022 Patient discharge [facility] Start: 12-28-2022 [facility] Start: 12-27-2022 Following clinical p athway protocol [facility] Start: 12-27-2022 Assessment of risk o f venous thromboembolism [facility] Start: 12-27-2022 Catheterization of vein [facility] Start: 12-27-2022 Incentive spirometry [facility] Start: 12-27-2022 Inhalation therapy procedure [facility] Start: 12-27-2022 Insertion of cathete r into peripheral vein [facility] Start: 12-27-2022 Measuring intake and output [facility] Start: 12-27-2022 Neurological assessment [facility] Start: 12-27-2022 Providing care accor ding to standard [facility] Start: 12-27-2022 Provision of activit y privileges [facility] Start: 12-27-2022 Referral to occupati onal therapist [facility] Start: 12-27-2022 Referral to service [facility] Start: 12-27-2022 Speech therapy assessment [facility] Start: 12-27-2022 [facility] Start: 12-27-2022 Admission procedure [facility] Start: 11-15-2022 Patient discharge [facility] Start: 11-15-2022 Blood chemistry [facility] Start: 11-14-2022 Following clinical p athway protocol [facility] Start: 11-14-2022 Assessment of risk o f venous thromboembolism [facility] Start: 11-14-2022 Cardiac monitoring [facility] Start: 11-14-2022 Catheterization of vein [facility] Start: 11-14-2022 Continuous pulse oximetry [facility] Start: 11-14-2022 Elevation of head of bed [facility] Start: 11-14-2022 Exercises [facility] Start: 11-14-[address] anned interventions [facility] Start: 11-14-2022 Insertion of cathete r into peripheral vein [facility] Start: 11-14-2022 Measuring intake and output [facility] Start: 11-14-2022 MRI of brain without contrast Brain without Contrast [facility] Start: 11-14-2022 Notification of physician [facility] Start: 11-14-2022 Oxygen therapy [facility] Start: 11-14-2022 Patient referral to dietitian [facility] Start: 11-14-2022 Providing care accor ding to standard [facility] Start: 11-14-2022 Referral to occupati onal therapist [facility] Start: 11-14-2022 Referral to service [facility] Start: 11-14-2022 Speech therapy assessment [facility] Start: 11-14-2022 Tobacco use cessatio n education [facility] Start: 11-14-2022 [facility] Start: 11-14-2022 Verification routine [facility] Start: 11-14-2022 Admission procedure [facility] Start: 11-14-2022 Patient referral to dietitian [facility] Start: 09-18-2022 Patient referral [facility] Work Phone: Start: 09-18-2022 Langdon and lambda light chains [facility] Start: 09-18-2022 Thiamine measurement [facility] Start: 09-17-2022 [facility] Start: 03-26-2020 Hepatitis B screening URINE ALBUMIN:CREATININE RATIO [facility] Start: 03-26-2020 Hepatitis B surface antibody level LDL CHOLESTEROL [facility] Start: 11-30-2019 Influenza vaccination INFLUENZA (#1) [facility] Start: 10-01-2019 [object Object] [facility]ABETIC [facility]OT [facility]AM [facility] Start: 09-25-2019 HbA1c (Bld) [Mass fraction] HBA1C [facility] Start: 07-07-2018 Hepatitis C antibody , confirmatory test DILATED RETINAL EXAM [facility] Start: 07-20-2013 DTaP/Tdap/Td Vaccine s (1 - Tdap) DTaP/Tdap/Td Vaccines (1 - Tdap) [facility] Start: 12-05-2010 SHINGRIX VACCINE (2 of 3) CONTRERAS GRIX VACCINE (2 of 3) [facility] Start: 12-05-2010 Zoster Vaccines (2 of 3) Zoste r Vaccines (2 of 3) [facility] Start: 1995 RSV Immunization age d 60 or older (1 - 1-dose 60+ series) RSV Immunization aged 60 or older (1 - 1-dose 60+ series) [facility] Start: 1947 Depression Screening Depression Scre ening [facility] Start: 1935 Screening for osteoporosis Bone Dens ity Scan [facility] Albumin [Moles/volum e] in Serum or Plasma [facility] Anion gap in Serum or Plasma [facility]ion [facility] Ankle brachial pressure index [facility] Blood ammonia measurement [facility] BUN/Creatinine ratio [facility] BUN/Creatinine ratio [facility] Calcium [Mass/volume ] in Serum or Plasma [facility] Calcium [Mass/volume ] in Serum or Plasma [facility] Carbon dioxide, tota l [Moles/volume] in Central venous blood [facility] Carbon dioxide, tota l [Moles/volume] in Serum or Plasma [facility] Chloride [Moles/volu me] in Serum or Plasma [facility] Cholesterol [Mass/vo lume] in Serum or Plasma [facility] Cholesterol [Mass/vo lume] in Serum or Plasma [facility] Cholesterol in HDL [Mass/volume] in Serum or Plasma [facility] Cholesterol in HDL [Mass/volume] in Serum or Plasma [facility] Cholesterol in LDL [Mass/volume] in Serum or Plasma [facility] Creatinine [Mass/vol ume] in Serum or Plasma [facility] Creatinine [Moles/vo lume] in Serum or Plasma [facility] Electrophoresis: [id number] [facility] Electrophoresis: andrew ma globulin [facility] Erythrocyte mean cor puscular volume determination [facility] Globulin measurement [facility] Glucose [Mass/volume ] in Serum or Plasma [facility] Glucose [Mass/volume ] in Serum or Plasma [facility] Hematocrit [Volume F raction] of Blood [facility] Hematocrit [Volume F raction] of Blood [facility] Hemoglobin [Mass/vol ume] in Blood [facility] Hemoglobin [Mass/vol ume] in Blood [facility] IgA [Mass/volume] in Serum or Plasma [facility] IgG [Mass/volume] in Serum or Plasma [facility] IgM [Mass/volume] in Serum or Plasma [facility] Langdon/lambda light c nat ratio [facility] Lambda light chains. free [Mass/volume] in Serum or Plasma [facility] Lamotrigine measurement [facility] Leukocytes [#/volume ] in Blood [facility] Leukocytes [#/volume ] in Blood [facility] Low density lipoprot ein cholesterol measurement [facility] Mean corpuscular hem oglobin concentration determination [facility] Mean corpuscular hem oglobin concentration determination [facility] Mean corpuscular hem oglobin determination [facility] Mean corpuscular hem oglobin determination [facility] Measurement of renal function [facility] Measurement of renal function [facility] MR Cervical spine [facility] MR Lumbar spine [facility] Neutrophil count [facility] Neutrophil percent differential count [facility] Patient Education [facility] Work Phone: Patient referral [facility] Work Phone: Platelets [#/volume] in Blood [facility] Platelets [#/volume] in Blood [facility] Potassium [Moles/vol ume] in Serum or Plasma [facility] Potassium measurement [facility] Protein electrophore sis panel - Serum or Plasma [facility] Red blood cell count [facility] Red blood cell count [facility] Red cell distributio n width determination [facility] Red cell distributio n width determination [facility] Serum chloride measurement [facility] Serum protein electrophoresis [facility] Sodium [Moles/volume ] in Serum or Plasma [facility] Sodium measurement [facility] Total cholesterol:HD L ratio measurement [facility] Triglycerides measurement [facility] Triglycerides measurement [facility] Troponin T.cardiac [Mass/volume] in Serum or Plasma by High sensitivity method [facility] Troponin T.cardiac [Mass/volume] in Serum or Plasma by High sensitivity method [facility] Urea nitrogen [Mass/ volume] in Serum or Plasma [facility] Urea nitrogen [Mass/ volume] in Serum or Plasma [facility] Urine culture Urine Culture [facility] Urine culture [facility] Urine kappa light ch ain measurement [facility] US Carotid arteries [facility] VLDL cholesterol measurement [facility] VLDL cholesterol measurement [facility] Immunizations Immunization Date Immunization Notes Care Provider Fa cemty 06-02-2020 Covid (Moderna) Dr. Rosemary mixon Work Phone: [facility] 05-05-2020 Steph (Moderna) Dr. Rosemary mixon Work Phone: [facility] 04-27-2019 influenza, high dose seasonal, preservative-free Alexia Lisfadievi [facility] 01-05-2018 influenza, high dose seasonal, preservative-free Alexia Adamsi [facility] 12-12-2014 influenza, seasonal, [facility]-2014 pneumococcal conjuga te vaccine, 13 valent Allia Adamsdonna [facility] 12-06-2013 influenza, seasonal, injectable [facility] 07-19-2013 tetanus and diphther ia toxoids, adsorbed, preservative free, for adult use (2 Lf of tetanus toxoid and 2 Lf of diphtheria toxoid) [facility] 01-25-2013 influenza, seasonal, injectable Alexia Adamsdonna [facility] 01-13-2012 influenza, seasonal, injectable Alexia Lishnevdonna [facility] 02-11-2011 influenza, seasonal, injectable [facility] 10-10-2010 zoster vaccine, live Jo Martinez [facility] 03-31-2006 pneumococcal polysaccharide vaccine, [address] [facility] Payers Date Payer Category Payer Self-pay [id number] 2023 Medicare [employer] UHC AARP MEDICARE ADVANTAGE [id number] 2023-Present [phone] [address] [address] [place] [address] Medicare HMO [id number] 2023 Unknown [id number] 2005 Unknown [id number] 1935 Unknown [id number] 1935 Unknown [id number] 2.16.840.1.438162.3.579.2.278 1935 Unknown [id number] 2..840.1.897697.3.579.2.278 1935 Unknown [id number] 2.840.1.481330.3.579.2.278 1935 Unknown [id number] 2.840.1.972574.3.579.2.278 1935 Unknown [id number] 2.16840.1.166768.3.579.2.278 1935 Unknown [id number] 2..840.1.804388.3.579.2.278 Medicare MEDICARE PART A B [id number] Unknown [id number] Unknown [id number] 2.16.840.1.568474.3.579.2.462 Unknown [id number] 2.16840.1.960847.3.579.2.462 Unknown [id number] 2.16.840.1.033864.3.579.2.462 Unknown [id number] 2.16.840.1.812273.3.579.2.462 Unknown [id number] 2.16.840.1.031314.3.579.2.462 Unknown [id number] 2.16.840.1.838718.3.579.2.462 Unknown [id number] 2.16.840.1.433180.3.579.2.462 Unknown [id number] 2.16840.1.004816.3.579.2.462 Unknown [id number] 2.16840.1.272210.3.579.2.462 Unknown [id number] 2.16840.1.386739.3.579.2.462 Unknown [id number] 2.16.840.1.552982.3.579.2.462 Unknown [id number] 2.16840.1.358515.3.579.2.462 Unknown [id number] 2.16840.1.828203.3.579.2.462 Unknown [id number] 2.840.1.412551.3.579.2.462 Unknown [id number] 2.840.1.110732.3.579.2.462 Unknown [id number] 2.840.1.638319.3.579.2.462 Unknown [id number] 2.840.1.232990.3.579.2.462 Unknown [id number] 2.840.1.564555.3.579.2.462 Unknown [id number] 2.840.1.842662.3.579.2.462 Unknown [id number] 2.16840.1.575598.3.579.2.462 Unknown [id number] 2.16840.1.395020.3.579.2.462 Unknown [id number] 2.16840.1.307089.3.579.2.462 Unknown [id number] 2.16840.1.262371.3.579.2.462 Unknown [id number] 2.16840.1.356765.3.579.2.462 Unknown [id number] 2.16.840.1.597113.3.579.2.462 Unknown [id number] 2.16.840.1.324367.3.579.2.462 Unknown [id number] 2.16.840.1.400095.3.579.2.462 Unknown [id number] 2.16.840.1.135962.3.579.2.462 Unknown [id number] 2.16.840.1.897584.3.579.2.462 Unknown [id number] 2.16.840.1.100849.3.579.2.462 Unknown [id number] 2.16.840.1.732679.3.579.2.462 Unknown [id number] 2.16.840.1.609485.3.579.2.462 Unknown [id number] 2.16.840.1.141502.3.579.2.462 Unknown [id number] 2.16.840.1.028648.3.579.2.462 Unknown [id number] 2.16.840.1.146198.3.579.2.462 Unknown [id number] 2.16.840.1.875939.3.579.2.462 Unknown [id number] 2.16.840.1.181480.3.579.2.462 Social History Date Type Detail Facility Start: 05-13-2019 End: 09-10-2024 Tobacco smoking status NHIS Former smoker [facility] End: 03-20-2008 History of tobacco use Current smoker [facility] End: 03-20-2008 History of tobacco use Cigarette Smoker [facility] Start: 05-13-2019 End: 06-17-2023 Cigarettes smoked current (pack per day) - Reported [facility] Start: 05-13-2019 End: 06-18-2023 Tobacco use and exposure Never used [facility] Start: 05-13-2019 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 (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) [facility] Start: 1935 Sex Assigned At Not on file [facility] Exposure to SARS-CoV -2 (event) Not sure [facility] Start: 02-11-2022 End: 06-16-2023 Tobacco smoking status NHIS Unknown if ever smoked [facility] Start: 04-19-2020 Rare [facility] Start: 04-19-2020 None [facility] Start: 04-19-2020 Spouse/ Signif icant Other [facility] Start: 08-11-2020 Non-smoker [facility] Start: 1935 Sex Assigned At Female W [facility] Start: 06-18-2023 Tobacco smoking stat us NHIS Never smoked tobacco [facility] Start: 06-17-2023 End: 06-18-2023 [facility] [employer] Has the [employer], [employer], or water [employer] threatened to shut off services in your home in past 12Mo No [employer] How often to you hav e a drink containing alcohol? Never [employer] How many standard drinks containing alcohol do you have on a typical day? Patient does not drink [employer] (I/We) worried wheth er (my/our) food would run out before (I/we) got money to buy more. Never true [facility] Start: 06-04-2024 End: 07-20-2024 Sex Female (finding) [facility] Medical Equipment Procedure Code Equipment Code Equipment Origin al Text Equipment Identifier Dates Kyphoplasty CLOVIS KYPHO AUTOPLEX FDA Start: 06-21-2020 Kyphoplasty CLOVIS KYPHO AUTOPLEX FDA Start: 06-21-2020 Kyphoplasty CLOVIS KYPHO AUTOPLEX FDA Start: 06-21-2020 Kyphoplasty CLOVIS KYPHO AUTOPLEX FDA Start: 06-21-2020 Kyphoplasty CLOVIS KYPHO AUTOPLEX FDA Start: 06-21-2020 Kyphoplasty CLOVIS KYPHO AUTOPLEX FDA Start: 06-21-2020 Kyphoplasty CLOVIS KYPHO AUTOPLEX FDA Start: 06-21-2020 Kyphoplasty CLOVIS KYPHO AUTOPLEX FDA Start: 06-21-2020 Kyphoplasty CLOVIS KYPHO AUTOPLEX FDA Start: 06-21-2020 Kyphoplasty CLOVIS KYPHO AUTOPLEX FDA Start: 06-21-2020 Kyphoplasty CLOVIS KYPHO AUTOPLEX FDA Start: 06-21-2020 Kyphoplasty CLOVIS KYPHO AUTOPLEX FDA Start: 06-21-2020 Kyphoplasty CLOVIS KYPHO AUTOPLEX FDA Start: 06-21-2020 Kyphoplasty CLOVIS KYPHO AUTOPLEX FDA Start: 06-21-2020 Kyphoplasty CLOVIS KYPHO AUTOPLEX FDA Start: 06-21-2020 Kyphoplasty CLOVIS KYPHO AUTOPLEX FDA Start: 06-21-2020 Kyphoplasty CLOVIS KYPHO AUTOPLEX FDA Start: 06-21-2020 Kyphoplasty CLOVIS KYPHO AUTOPLEX FDA Start: 06-21-2020 Kyphoplasty CLOVIS KYPHO AUTOPLEX FDA Start: 06-21-2020 Kyphoplasty CLOVIS KYPHO AUTOPLEX FDA Start: 06-21-2020 Kyphoplasty CLOVIS KYPHO AUTOPLEX FDA Start: 06-21-2020 Kyphoplasty CLOVIS KYPHO AUTOPLEX FDA Start: 06-21-2020 Kyphoplasty CLOVIS KYPHO AUTOPLEX FDA Start: 06-21-2020 Kyphoplasty CLOVIS KYPHO AUTOPLEX FDA Start: 06-21-2020 Kyphoplasty CLOVIS KYPHO AUTOPLEX FDA Start: 06-21-2020 Kyphoplasty CLOVIS KYPHO AUTOPLEX FDA Start: 06-21-2020 Kyphoplasty CLOVIS KYPHO AUTOPLEX FDA Start: 06-21-2020 Kyphoplasty CLOVIS KYPHO AUTOPLEX FDA Start: 06-21-2020 Kyphoplasty CLOVIS KYPHO AUTOPLEX FDA Start: 06-21-2020 Kyphoplasty CLOVIS KYPHO AUTOPLEX FDA Start: 06-21-2020 Start: 04-06-2018 Comment on above: Use as instructed. P t testing 2-3 times a week. One touch test strips # 17 Diagnosis code E11.9 Use as instructed [employer] Cancellous 30cc 1-8 - [id number] - [id number] Start: 06-18-2023 Plate Hum Dist 2.7/3.5 [id number]_imp Start: 06-18-2023 Plate Va Olcrn 2.7/3.5 2h R - [id number] Start: 06-18-2023 Plate Va M-D-Hum 2.7/3.5 1h L - [id number] Start: 06-18-2023 Screw Lck Va 2.1b75e-A T8 Rcs - [id number]_imp Start: 06-18-2023 Screw Lck Va 2.7x58 S-T T8 Rcs - [id number] 83965_imp Start: 06-18-2023 Screw Lck Va 2.6t49x-L T8 Rcs - [id number] 83966_imp Start: 06-18-2023 Screw Lck Va 2.1s09i-Z T8 Rcs - [id number] 83967_imp Start: 06-18-2023 Screw Lck Va 2.4b21n-O T8 Rcs - [id number] 83968_imp Start: 06-18-2023 Screw Lck Va 2.7x50 S-T T8 Rcs - [id number]_imp Start: 06-18-2023 Screw Crtx 3.5x22mm S-T - [id number]_imp Start: 06-18-2023 Screw Crtx 3.5x26mm S-T - [id number]_imp Start: 06-18-2023 Screw Lck Va 2.2x86e-V T8 Rcs - [id number]_imp Start: 06-18-2023 Screw Lck Va 2.0e89s-H T8 Rcs - [id number]_imp Start: 06-18-2023 Screw Lck Va 2.7x56 S-T T8 Rcs - [id number]_imp Start: 06-18-2023 Screw Crtx 3.5x28mm S-T - [id number]_imp Start: 06-18-2023 Screw Crtx 3.5x30mm S-T - [id number] 83958_imp Start: 06-18-2023 Screw Lck Va 2.0j64z-M T8 Rcs - [id number]_imp Start: 06-18-2023 Screw Lck Va 2.0v79e-N T8 Rcs - [id number]_imp Start: 06-18-2023 Goals Date Patient Goal Desired Activity /State Functional Status Date Assessment Result Facility 12-28-2022 Functional status Ambulates [facility] Work Phone: 11-15-2022 Functional status Chair [facility] Work Phone: Mental Status Date Assessment Result Facility 09-10-2024 Cognitive function Voice/Name [facility] Work Phone: 09-08-2024 Cognitive function Voice/Name [facility] Work Phone: 12-28-2022 Cognitive function Voice/Name [facility] Work Phone: 11-18-2022 Cognitive function Level Of Cons ciousness Awake;Alert;Appropriate [facility] Work Phone: 11-15-2022 Cognitive function Appropriate;Cooperativ e [facility] Work Phone: 11-14-2022 Cognitive function Voice/Name [facility] Work Phone: 11-14-2022 Cognitive function Voice/Name [facility] Work Phone: 09-08-2022 Cognitive function Awake;Alert;A ppropriate;Follow s Commands [facility] Work Phone: 02-11-2022 Cognitive function Awake;Alert;Appropriat e [facility] Work Phone: Clinical Notes 02-14-2007 to 09-10-2024 Note Date & Type Note Facility 09-10-2024 Discharge summary [facility] 09-10-2024 Radiology Diagnostic study note [facility] Imaging Services [address], [place] [address] STROKE CTA Head AND Neck W/Con MR#: [id number] Acct: [id number] Name: EZRA GONZALEZ Rep #: [id number] : 1935 F 89 From: Jian Gipson MD PCP: Dr. Chucky Ocoha, DO Status: REG ER Study:STROKE CTA Head AND Neck W/Con Date of Exam: 09/10/24 Exam# [id number] Ordering Dr: Adeel Garcia DO PROCEDURE: STROKE CTA HEAD AND NECK W/CON 09/10/2024 REASON FOR EXAM: NEURO DEFICIT, ACUTE, STROKE SUSPECTED TECHNIQUE: CTA imaging of the head and neck from the aortic arch to the skull vertex with out contrast and with intravenous contrast. Multiplanar and multisequence images were obtained. CONTRAST: Isovue 370 VOLUME: 100 mL One or more dose reduction techniques were used (e.g., Automated exposure control, adjustment of the mA and/or kV according to patient size, use of iterative reconstruction technique). RADIATION DOSE SUMMARY: CTDlvol: 27 mGy DLP: 694 mGycm COMPARISON: Prior CT scan of the brain done earlier in the day prior CTA of the brain and neck dated December 27, 2022. FINDINGS: Aortic Arch: Normal size and branching pattern. Mild atherosclerotic plaque. Brachiocephalic and Subclavians: Mild atherosclerotic plaque without significantstenosis. RIGHT Carotid: Right CCA: Unremarkable. Right ICA: Moderate calcified and soft plaque. Maximum stenosis (NASCET): 60 % Right ECA: Unremarkable. LEFT Carotid: Left CCA: Unremarkable. Left ICA: Moderate calcified and soft plaque. Maximum stenosis (NASCET): 60 % Left ECA: Unremarkable. Vertebrals: Codominant. Arise from the subclavians. Both vertebrals form the basilar. RIGHT Vertebral: Unremarkable. LEFT Vertebral: Unremarkable. Anatomy: [place] anatomy is normal. Aneurysm or avm: No intracranial aneurysms or large vascular malformations are identified. Anterior cerebral arteries: Unremarkable: Middle cerebral arteries: Unremarkable. Basilar artery: Unremarkable. Posterior cerebral arteries: There is diffuse narrowing of the left posterior cerebral artery in the distal branching structures. Other major branches of the posterior circulation: Unremarkable. Major venous structures: Unremarkable. Other findings: Neck: Lungs: Bones: CT/STROKE CTA Head AND Neck W/Con IMPRESSION: Calcific plaque at the origin of the right and left internal carotid arteries causing 60% stenosis. Diffuse narrowing of the left posterior cerebral artery as well as the distal branches. Red Alert: Narrowing of Left Pos this is unchanged. The critical information above was relayed directly by me by telephone to Teri Garcia on 09/10/2024 at 3:01 pm with readback verification. Reading Location: [facility] CC: Dr. Teri Garcia DO; Dr. Chucky Ochoa DO ~ Investor Relations Specialist: Signed [facility] 09-10-2024 Radiology Diagnostic study note [facility] Imaging Services [address] [place] [address] STROKE Brain/Head without Cont MR#: [id number] Acct: [id number] Name: EZRA GONZALEZ Rep #: [id number] : 1935 F 89 From: Jian Gipson MD PCP: Dr. Chucky Ochoa DO Status: REG ER Study:STROKE Brain/Head without Cont Date of Exam: 09/10/24 Exam# [id number] Ordering Dr: Adeel Garcia DO PROCEDURE: STROKE BRAIN/HEAD WITHOUT CONT 09/10/2024 REASON FOR EXAM: NEURO DEFICIT, ACUTE, STROKE SUSPECTED TECHNIQUE: Head CT without intravenous contrast. Coronal and Sagittal reconstruction serieswere provided. One or more dose reduction techniques were used (e.g., Automated exposure control, adjustment of the mA and/or kV according to patient size, use of iterative reconstruction technique. RADIATION DOSE SUMMARY: CTDlvol: 44.99 mGy DLP: 779.24 mGycm COMPARISON: Prior study dated June 16, 2023. FINDINGS: Brain: Low density in the periventricular white matter suggests mild chronic small vessel ischemic changes. Atherosclerotic calcification of the vertebral arteries and cavernous portions of the internal carotid arteries bilaterally. CSF Spaces: Moderate generalized cerebral atrophy Sinuses/Mastoids: Clear at visualized levels Bones: Unremarkable CT/STROKE Brain/Head without Cont IMPRESSION: CHRONIC CHANGES. NO ACUTE FINDINGS. Red Alert: Chronic changes. The critical information above was relayed directly by me by telephone to Teri Garcia on 09/10/2024 at 2:05 pm with readback verification. Reading Location: [facility] CC: Dr. Teri Garcia DO; Dr. Chucky Ochoa DO ~ Investor Relations Specialist: Signed [facility] 09-10-2024 Discharge summary Note Date/Time September 10, 2024 4:17pm [facility] Medical Records Department [address] [place] [address] Emergency Department Summary 09/10/24 MR#: [id number] Acct: [id number] Name: EZRA GONZALEZ Rep #:[id number] : 1935 89 From: Teri Echeverria PCP: Dr. Chucky Ochoa, DO Status:REG ER Location: ED HPI History of Present Illness Chief Complaint: Stroke Alert Informant: patient Narrative Narrative: Patient is 89-year-old female with history of TIA, carotid stenosis, dementia, longstanding persistent atrial fibrillation, seizures and long-term anticoagulation on Eliquis as well as hypertension. She is presenting today with strokelike symptoms. She arrived in the ER as a stroke alert. Per EMS reports she developed slurred speech which was noted at noon today by nursing staff. EMS notes she has had some mild improvement at this time. No other neurologic deficits reported. Patient was seen in our ER 2 days ago for breakthrough seizure and was discharged back. No report of any recent falls or trauma. Patient tells me that she has seizures that cause any speech changes. I spoke to her son Wilfredo (her eldest son) phone number [phone]. He states that she follows with Dr. 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 He also tells me that he talk to her about 615 this morningand she seemed a little off with her mentation as well as her pronunciation. 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) Persistent atrial fibrillation Chronic kidney disease (CKD) Spinal stenosis Osteoarthritis Atherosclerotic heart disease of [place] coronary artery without angina pectoris Type 2 diabetes mellitus Essential (primary) hypertension Hyperlipidemia Obesity Pleural effusion on right (09/2019) Paroxysmal atrial fibrillation Home Medications ?Medication ?Instructions ?Recorded ?Last Taken ?Type multivitamin 1 cap PO DAILY 12/10/19 09/2 12/21 History omeprazole 20 mg capsule,delayed 20 mg PO DAILY reflux 11/14/22 12/27/22 History release atorvastatin 40 mg tablet 40 mg PO QHS 01/20/23 Unknow n History ascorbic acid (vitamin C) 250 mg 250 mg PO DAILY 05/19 Unknown History tablet diphenhydramine HCl 25 mg tablet 25 mg PO QHS PRN jayna rgy symptoms 05/19/23 Unknown History (Allergy (diphenhydramine)) warfarin 3 mg tablet 3 mg PO .QMOTHSASU #90 tabs 04/30/24 Unknown Rx donepezil 10 mg tablet 10 mg PO QHS #30 tabs Unknown Rx lamotrigine 25 mg tablet 50 mg (2 x 25 mg) PO BID #12 0 tabs 05/10/24 Unknown Rx acetaminophen 650 mg 650 mg PO Q8H 09/08/24 Unkno wn History tablet,extended release (Tylenol Arthritis Pain) irbesartan 300 mg tablet 300 mg PO DAILY 09/08/24 Unk nown History metoprolol succinate 50 mg 50 mg PO DAILY 09/08/24 Unk nown History tablet,extended release 24 hr calcium 600 mg (as 2 tab PO DAILY 09/10/24 Unkn own History carbonate)-vitamin D3 5 mcg (200 unit) tablet (Calcium 600 + D(3)) diclofenac sodium 1 % topical gel 2 g topical BID 08/29 06/22 Unknown History (Arthritis Pain (diclofenac)) ondansetron HCl 4 mg tablet 4 mg PO Q6H PRN nausea and vomiting 09/10/24 Unknown History warfarin 2 mg tablet 2 mg PO .QTUWETH 09/10/24 Un known History Allergy/AdvReac Type Severity Reaction Status Date / Time latex Allergy rash Verified 09/10/24 14:06 amiodarone AdvReac Severe hair loss Verified 09/10/24 14:06 atorvastatin (From Lipitor) AdvReac myalgia Verified 09/10/24 14:06 codeine AdvReac Nausea Verified 09/10/24 14:06 meperidine (From Demerol) AdvReac Nausea/Vom/ Verified 09/08/24 12:25 Diarrhea rosuvastatin (From Crestor) AdvReac myalgia Verified 09/10/24 14:06 Family History Father CAD (coronary artery disease) Brother CAD (coronary artery disease) Surgical History History of kyphoplasty (~05/2020) History of left heart catheterization (12/27/19) History of left hip replacement History of repair of rotator cuff History of knee replacement History of coronary artery stent placement (02/14/07) History of radiofrequency ablation procedure for cardiac arrhythmia (2011) Social History housing: assisted living facility Smoking Status: Former smoker how long ago did patient quit smokin years ago alcohol intake: former substance use type: does not use caffeine: No ROS ROS ED Constitutional Constitutional ED: Denies chills or fever(s) Eyes Eyes: Denies change in vision ENT ENT ED: Reports other; Denies sore throat Cardiovascular Cardiovascular: Denies chest pain Respiratory/Chest Respiratory/Chest: Denies cough Gastrointestinal Gastrointestinal: Denies nausea or vomiting Integumentary Denies rash Neurologic Neurologic: Reports other Details: Slurred speech ; Denies headache(s), paresthesias or weakness Hematologic/Lymphatic Hematologic/Lymphatic: Reports easy bleeding, easy bruising and other Details: On Coumadin EXAM Physical Exam Const Vital Signs: 09/10/24 13:50 09/10/24 13:58 09/10/24 14:06 Temperature 98 F 98 F Temperature Source Oral Oral Pulse Rate 72 Respiratory Rate 16 Blood Pressure 120/74 Blood Pressure Mean 89 Pulse Ox 95 Oxygen Delivery Method Room Air Room Air 09/10/24 14:25 09/10/24 14:30 09/10/24 15:00 Temperature Temperature Source Pulse Rate 83 73 80 Respiratory Rate 16 16 20 H Blood Pressure 75/53 L 75/53 L 131/97 H Blood Pressure Mean 60 60 108 Pulse Ox 95 95 95 Oxygen Delivery Method Room Air Room Air 09/10/24 15:30 Temperature Temperature Source Pulse Rate 80 Respiratory Rate 22 H Blood Pressure 124/73 H Blood Pressure Mean 90 Pulse Ox 97 Oxygen Delivery Method Room Air Positive well nourished and well developed General Appearance ED: well developed and NAD HEENT Reports moist mucous membranes atraumatic Eyes PERRL and EOMs intact bilaterally Neck supple and no JVD Chest Wall inspection of chest normal and palpation of chest normal Resp normal respiratory effort and clear to auscultation bilaterally Cardio no murmurs Rhythm: regular rhythm GI normal to inspection, nondistended, normoactive bowel sounds and soft to palpation Extremity normal to inspection General Extremety ED: Negative for deformity or edema General Extremity: Negative for deformity or edema Neuro CN's II-XII intact bilaterally and no sensory deficits noted Neuro Narrative: Patient initially has mildly dysarthric speech but is understandable. Orientation gna is at her baseline. Sensorium / Orientation: alert, oriented to person and oriented to place Motor Exam: strength 5/5 throughout Psych mental status grossly normal Skin no wounds MDM MDM MDM Narrative Medical decision making narrative: Patient valuated for episode of altered speech. Differential includes stroke, intracranial hemorrhage, focal seizure as well as metabolic encephalopathy. Stroke alert was called. Patient's blood sugar per EMS was 159. CT of the brain as well as CTA head and neck are obtained in addition to basic labs. Workup largely unremarkable. CT of the brain does not show any acute intracranial process. There are calcifications of the bilateral internal carotid arteries causing 60% stenosis and diffuse narrowing of the left posterior cerebral artery however this is discussed with radiology (Dr. Gipson) and he states this is grossly unchanged compared to CTA in 2022. Patient is a mild leukocytosis 11.5 which is actually downtrending from 2 days ago. Urinalysis shows 500 leukocyte esterase, 10-25 white blood cells but only rare bacteria and some contamination. Will send for culture but defer treatmentat this time. Patient is afebrile. Her INR is therapeutic at 2.4. I spoke again to her son Wilfredo on the phone. He is comfortable with admission here especially if we have that capabilities of performing a 20-minute EEG as there was some prior concern about seizure activity. I spoke with teleneurology, Dr. Simmons, through [facility]. He has a lower suspicion for seizure butrecommends admission locally for further TIA/stroke workup. On repeat evaluation patient symptoms have resolved and she is at her baseline. Case discussed with hospitalist, Dr. Oro for admission. Neurology note from 05/10/[address] Juarez is reviewed. Patient had episodes of garbled speech/aphasia over the past few years each lasting about anhour. Suspect for complex partial seizure and started on lamotrigine. Has chronic gait abnormalities associated with neuropathy. She is on lamotrigine 50mg twice daily. History & Record Review Additional record(s) reviewed:: Prior outpatient record Lab Data Attestation: I reviewed the patient's lab results. Labs: Laboratory Results - last 24 hr 09/10/24 09/10/24 14:50 15:03 WBC 11.5 H RBC 4.44 Hgb 13.6 Hct 41.7 MCV 93.9 MCH 30.6 MCHC 32.6 RDW Std Deviation 45.4 H RDW Coeff of Sumeet 13.2 Plt Count 269 MPV 10.4 Immature Gran % (Auto) 0.400 Neut % (Auto) 72.3 H Lymph % (Auto) 16.6 L Crawford % (Auto) 9.1 Eos % (Auto) 1.2 Baso % (Auto) 0.4 Absolute Neuts (auto) 8.3 H Absolute Lymphs (auto) 1.91 Nucleated RBC % 0 PT 26.4 H INR 2.4 APTT 31.8 Sodium 137 Potassium 4.4 Chloride 103 Carbon Dioxide 21.8 Anion Gap 12 BUN 37 H Creatinine 1.05 Estim Creat Clear Calc 33.63 L Est GFR (MDRD) Non-Af 51 L BUN/Creatinine Ratio 34.8 H Glucose 131 H Calcium 8.7 Troponin T High Sens 18 H Urine Color Straw Urine Clarity Clear Urine pH 5.0 Ur Specific Laverne 1.010 Urine Protein 30 H Urine Glucose (UA) Normal Urine Ketones Negative Urine Occult Blood Negative Urine Nitrite Negative Urine Bilirubin Negative Urine Urobilinogen Normal Ur Leukocyte Esterase 500 H Urine RBC 0 SEEN Urine WBC 10-25 SEEN Ur Squamous Epith Cells 0-5 SEEN Urine Bacteria RARE Urine Mucus 0 SEEN Radiography Diagnostic Testing: Clinical Impression(s) from Imaging Studies Brain CT 09/10/24 13:55 IMPRESSION: CHRONIC CHANGES. NO ACUTE FINDINGS. Red Alert: Chronic changes. The critical information above was relayed directly by me by telephone to Teri Garcia on 09/10/2024 at 2:05 pm with readback verification. Reading Location: [id number] Head/Neck CTA 09/10/24 13:55 IMPRESSION: Calcific plaque at the origin of the right and left internal carotid arteries causing 60% stenosis. Diffuse narrowing of the left posterior cerebral artery as well as the distal branches. Red Alert: Narrowing of Left Pos this is unchanged. The critical information above was relayed directly by me by telephone to Teri Garcia on 09/10/2024 at 3:01 pm with readback verification. Reading Location: [id number] Rhythm Strip Rhythm Strip: A-fib Rate: 75 Ectopy: None EKG Initial EKG: Attestation: I personally reviewed and interpreted this EKG as follows: Interpretation: Atrial Fibrillation Comments: Atrial fibrillation at a rate of 75 bpm Left axis deviation Moderate voltage criteria for LVH Normal ST segments Management Discussion w/another healthcare provider: Hospitalist, Cosmetic Sales Advisor and Radiologist Discharge Plan Triage Chief Complaint: Stroke Alert ED Provider: Teri Garcia Dx/Rx/DC Orders Clinical Impression: Difficulty with speech, USP current use of anticoagulant, Atrial fibrillation, chronic, Epilepsy Prescriptions: No Action multivitamin Capsule 1 cap PO DAILY atorvastatin 40 mg tablet 40 mg PO QHS ascorbic acid (vitamin C) 250 mg tablet 250 mg PO DAILY diphenhydramine HCl [Allergy (diphenhydramine)] 25 mg tablet 25 mg PO QHS PRN (Reason: allergy symptoms) amlodipine 10 mg tablet 10 mg PO QDAY Qty: 90 3RF donepezil 10 mg tablet 10 mg PO QHS Qty: 30 9RF lamotrigine 25 mg tablet 50 mg PO BID Qty: 120 9RF omeprazole 20 mg capsule,delayed release(DR/EC) 20 mg PO DAILY irbesartan 300 mg tablet 300 mg PO DAILY acetaminophen [Tylenol Arthritis Pain] 650 mg tablet extended release 650 mg PO Q8H metoprolol succinate 50 mg tablet extended release 24 hr 50 mg PO DAILY warfarin 2.5 mg tablet 2.5 mg PO .QTUWEFR Qty: 90 3RF Protocol: Dose Management Condition: Friday Dose/Route: 3 mg Instruction: 1 x 3 mg tablet Condition: Friday Dose/Route: 3 mg Instruction: 1 x 3 mg tablet Condition: Friday Dose/Route: 2.5 mg Instruction: 1 x 2.5 mg tablet Condition: Friday Dose/Route: 2.5 mg Instruction: 1 x 2.5 mg tablet Condition: Dose/Route: 3 mg Instruction: 1 x 3 mg tablet Condition: Friday Dose/Route: 2.5 mg Instruction: 1 x 2.5 mg tablet Condition: Friday Dose/Route: 3 mg Instruction: 1 x 3 mg tablet Protocol Text: Adjustment Start Date: Friday07/19/24 INR Value: 2.2 INR Date: 07/19/24 Recheck Date: 08/18/24 Rx Instructions: or as directed warfarin 3 mg tablet 3 mg PO .QMOTHSASU Qty: 90 3RF Protocol: Dose Management Condition: Friday Dose/Route: 3 mg Instruction: 1 x 3 mg tablet Condition: Friday Dose/Route: 3 mg Instruction: 1 x 3 mg tablet Condition: Friday Dose/Route: 2.5 mg Instruction: 1 x 2.5 mg tablet Condition: Friday Dose/Route: 2.5 mg Instruction: 1 x 2.5 mg tablet Condition: Dose/Route: 3 mg Instruction: 1 x 3 mg tablet Condition: Friday Dose/Route: 2.5 mg Instruction: 1 x 2.5 mg tablet Condition: Friday Dose/Route: 3 mg Instruction: 1 x 3 mg tablet Protocol Text: Adjustment Start Date: Friday07/19/24 INR Value: 2.2 INR Date: 07/19/24 Recheck Date: 08/18/24 Rx Instructions: or as directed Primary Care Provider: Chucky Ochoa Referrals: Chucky Ochoa DO [Primary Care Provider] - Print Language: Indonesian Disposition Disposition: Acute Care Hospital [facility] NIHSS NIHSS 1a. Level of Consciousness: 0 - Alert; keenly responsive 1b. LOC Questions: 0 - Answers BOTH questions correctly 1c. LOC Commands: 0 - Performs BOTH tasks correctly 2. Best Gaze: 0 - Normal 3. Visual: 0 - No visual loss 4. Facial Palsy: 0 - Normal symmetrical movements 5a. Left Arm: 0 - No drift; arm holds 90 (or 45) degrees for full 10 seconds 5b. Right Arm: 0 - No drift; arm holds 90 (or 45) degrees for full 10 seconds 6a. Left Le - No drift; leg holds 30-degree position for full 5 seconds 6b. Right Le - No drift; leg holds 30-degree position for full 5 seconds 7. Limb Ataxia: 0 - Absent 8. Sensory: 0 - Normal; no sensory loss 9. Best Language: 0 - No aphasia; normal 10. Dysarthria: 1 = [id number] dysarthria; 11. Extinction and Inattention: 0 - No abnormality Total: 1 Stroke Questions Stroke Team Activated: Yes Reviewed Inclusion/Exclusion criteria: Yes Was Patient considered for Endovascular Intervention?: No IV Thrombolytic Administered: No No contraindications from thrombolytic administration: No (Patient therapeutic on Coumadin and does not have debilitating stroke sympt) What to do if you have Problems For any increased pain, shortness of breath, bleeding, nausea or vomiting, chestpain, or any unexpected problems, contact your Primary Care Provider. Call [facility] ([phone]) or report to the closest Emergency Room. Call 911 if necessary. 09/10/24 1617 <Electronically signed by Teri Garcia DO> Cosigner Signature (if applicable): CC: Dr. Chucky Ochoa DO ~ Signed [facility] Work Phone: [phone] Discharge summary [facility] Medical Records Department [address] [place] [address] Emergency Department Summary 09/08/24 MR#: [id number] Acct: [id number] Name: EZRA GONZALEZ Rep #:[id number] : 1935 89 From: Anoop Blackmon MD PCP: Dr. Chucky Ochoa MD Status:REG ER Location: ED HPI History of Present Illness Chief Complaint: Seizure Detail of Chief Complaint: Patient presents after generalized tonic-clonic seizure. Informant: patient, EMS and SNF Onset/Context/Timing Onset: Today Context: Sudden Onset Timing: Intermittent (Reported duration 10 minutes) Quality: Generalized tonic-clonic seizure Location: Patient facility Current Severity: Gone Maximum Severity: Severe Worsened by: patient reports compliance with her Lamictal. She not had a seizure great Relieved by: Not applicable Associated Symptoms Associated Symptoms: None Narrative Narrative: Patient is a 89-year-old woman who does have history of mild dementia. She is followed by Dr. Anant Juarez. His most recent office note was reviewed. [place] mental status exam improved after she was placed on medicine for dementia. She scored 30 out of 30. Her Lamictal dose has not been changed. She has a known seizure disorder. Patient is on no medicines that have mew that may lower seizure threshold. Her med list that accompanies her from the nursing facility was reviewed. Presently patient denies headache. Denies double vision blurry vision loss of vision. Rhinorrhea decreased hearing. No trouble speech or swallowing. She denies chest pain shortness of breath. She denies nausea, vomit or diarrhea. She denies paresthesia, anesthesia Medicus. She does have problems with balancewhich is multifactorial according to Dr. Juarez office note. Patient has no infectious symptoms. 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) Persistent atrial fibrillation Chronic kidney disease (CKD) Spinal stenosis Osteoarthritis Atherosclerotic heart disease of [place] coronary artery without angina pectoris Type 2 diabetes mellitus Essential (primary) hypertension Hyperlipidemia Obesity Pleural effusion on right (09/2019) Paroxysmal atrial fibrillation Home Medications ?Medication ?Instructions ?Recorded ?Last Taken ?Type multivitamin 1 cap PO DAILY 12/10/19/12/21 History omeprazole 20 mg capsule,delayed 20 mg PO DAILY reflux 11/14/22 12/27/22 History release atorvastatin 40 mg tablet 40 mg PO QHS 01/20/23 Unknow n History ascorbic acid (vitamin C) 250 mg 250 mg PO DAILY 05/19 Unknown History tablet diphenhydramine HCl 25 mg tablet 25 mg PO QHS PRN jayna rgy symptoms 05/19/23 Unknown History (Allergy (diphenhydramine)) warfarin 2.5 mg tablet 2.5 mg PO .QTUWEFR #90 tabs 04/30/24 Unknown Rx warfarin 3 mg tablet 3 mg PO .QMOTHSASU #90 tabs 04/30/24 Unknown Rx donepezil 10 mg tablet 10 mg PO QHS #30 tabs Unknown Rx lamotrigine 25 mg tablet 50 mg (2 x 25 mg) PO BID #12 0 tabs 05/10/24 Unknown Rx amlodipine 10 mg tablet 10 mg PO QDAY #90 tabs 07/01 Unknown Rx acetaminophen 650 mg 650 mg PO Q8H 09/08/24 Unkno wn History tablet,extended release (Tylenol Arthritis Pain) irbesartan 300 mg tablet 300 mg PO DAILY 09/08/24 Unk nown History metoprolol succinate 50 mg 50 mg PO DAILY 09/08/24 Unk nown History tablet,extended release 24 hr Allergy/AdvReac Type Severity Reaction Status Date / Time latex Allergy rash Verified 09/08/24 12:25 amiodarone AdvReac Severe Hair Verified 09/08/24 12:25 falling out in gobs atorvastatin (From Lipitor) AdvReac myalgia Verified 09/08/24 12:25 codeine AdvReac Nausea Verified 09/08/24 12:25 meperidine (From Demerol) AdvReac Nausea/Vom/ Verified 09/08/24 12:25 Diarrhea rosuvastatin (From Crestor) AdvReac myalgia Verified 09/08/24 12:25 Family History Father CAD (coronary artery disease) Brother CAD (coronary artery disease) Surgical History History of kyphoplasty (~05/2020) History of left heart catheterization (12/27/19) History of left hip replacement History of repair of rotator cuff History of knee replacement History of coronary artery stent placement (02/14/07) History of radiofrequency ablation procedure for cardiac arrhythmia (2011) Social History housing: assisted living facility Smoking Status: Former smoker how long ago did patient quit smokin years ago alcohol intake: former substance use type: does not use caffeine: No ROS ROS ED Constitutional Constitutional ED: Denies chills, fever(s), subjective or sweats Eyes Eyes: Denies blurry vision, change in vision or diplopia ENT ENT ED: Denies ear pain, rhinorrhea or sore throat Cardiovascular Cardiovascular: Denies chest pain, palpitations or racing heartbeat Respiratory/Chest Respiratory/Chest: Denies cough, dyspnea or dyspnea on exertion Gastrointestinal Gastrointestinal: Denies abdominal pain, nausea or vomiting Genitourinary Genitourinary ED: Denies dysuria, hematuria or urinary frequency Musculoskeletal Musculoskeletal: Denies arthralgias, myalgias or neck pain Integumentary Denies rash Neurologic Neurologic: Denies weakness Psychiatric Psychiatric: Denies anxiety or depression Endocrine Endocrinology: Denies cold intolerance or heat intolerance Hematologic/Lymphatic Hematologic/Lymphatic: Denies systems reviewed and no addt'l complaints, except as documented EXAM Physical Exam Const Vital Signs: 09/08/24 12:22 09/08/24 14:00 Temperature 98.0 F Temperature Source Oral Pulse Rate 74 63 Respiratory Rate 24 H 17 Blood Pressure 131/70 H Blood Pressure Mean 90 Pulse Ox 98 98 Oxygen Delivery Method Room Air Negative for well nourished or well developed General Appearance ED: NAD; Negative for well developed, cyanotic, diaphoretic or pallor HEENT Reports TM's clear; Denies moist mucous membranes or dry mucous membranes Tympanic Membrane ED: Yes TM's clear Mouth ED: No dry mucous membranes Mouth: No dry mucous membranes Eyes PERRL and EOMs intact bilaterally Neck no lymphadenopathy, supple and no JVD Chest Wall inspection of chest normal and palpation of chest normal Resp normal respiratory effort and clear to auscultation bilaterally Cardio regular rate, S1 normal heart sound, S2 normal heart sound and no murmurs Rhythm: abnormal rhythm irregularly irregular (History of atrial fibrillation onCoumadin.) GI normal to inspection, nondistended, normoactive bowel sounds, non-tender, non- distended and no masses; Negative for hepatosplenomegaly Back/Spine no CVA tenderness Extremity Negative for normal to inspection Extremity Narrative: Patient has numerous bruises. She states she bruises easily because she is on Coumadin. Her level has not been assessed recently. Neuro oriented x3, CN's II-XII intact bilaterally and no sensory deficits noted Neuro Narrative: There is no clonus or Babinski sign. There is no dysmetria. Sensorium / Orientation: alert Motor Exam: strength 5/5 throughout Psych mental status grossly normal Skin no rashes or lesions noted, no wounds and skin turgor normal Skin Narrative: Bruises noted extremities. General Skin Exam: Negative for jaundice or pallor MDM MDM MDM Narrative Medical decision making narrative: Will obtain CBC to assess for any significant shift or bandemia. BMP to assess electrolytes and specifically sodium and calcium. Lamictal level was ordered. This is a send out. INR was ordered as well since she is on Coumadin. Prior records and labs were documented in the HPI narrative. History & Record Review Additional record(s) reviewed:: Prior outpatient record, Prior ED visit and Prior labs Lab Data Attestation: I reviewed the patient's lab results. Lab results narrative: CBC is slightly elevated 13.6 thousand with mild shift. This is due to the seizure with demargination. PT/INR is therapeutic. Basic metabolic panel reveals an elevated BUN to creatinine ratio of 35:1. Glucose is slight [id number] with a normal CO2 anion gap. Labs: Laboratory Results - last 24 hr 09/08/24 12:50 WBC 13.6 H RBC 4.40 Hgb 13.8 Hct 41.4 MCV 94.1 MCH 31.4 MCHC 33.3 RDW Std Deviation 45.2 H RDW Coeff of Sumeet 13.2 Plt Count 326 MPV 10.8 Immature Gran % (Auto) 0.400 Neut % (Auto) 75.9 H Lymph % (Auto) 16.2 L Crawford % (Auto) 6.6 Eos % (Auto) 0.7 Baso % (Auto) 0.2 Absolute Neuts (auto) 10.3 H Absolute Lymphs (auto) 2.21 Nucleated RBC % 0 PT 30.7 H INR 2.9 Sodium 138 Potassium 4.7 Chloride 105 Carbon Dioxide 22.4 Anion Gap 11 BUN 35 H Creatinine 1.00 Estim Creat Clear Calc 39.57 L Est GFR (MDRD) Non-Af 54 L BUN/Creatinine Ratio 35.2 H Glucose 149 H Calcium 8.9 Treatment and Re-Evaluation :: Suspect patient had a breakthrough seizure. Lamictal is a send out. Dose was not adjusted since thelevel is not known. This will need to be followed up by the nursing staff and her neurologist. Discharge Plan Triage Chief Complaint: Seizure ED Provider: Anoop Blackmon Dx/Rx/DC Orders Clinical Impression: Breakthrough seizure, Anticoagulant long-term use, Polyneuropathy, Hyperlipidemia, Essential (primary) hypertension, Atrial fibrillation, chronic Instructions: ED Seizure, Recurrent (Adult) Prescriptions: No Action multivitamin Capsule 1 cap PO DAILY atorvastatin 40 mg tablet 40 mg PO QHS ascorbic acid (vitamin C) 250 mg tablet 250 mg PO DAILY diphenhydramine HCl [Allergy (diphenhydramine)] 25 mg tablet 25 mg PO QHS PRN (Reason: allergy symptoms) amlodipine 10 mg tablet 10 mg PO QDAY Qty: 90 3RF donepezil 10 mg tablet 10 mg PO QHS Qty: 30 9RF lamotrigine 25 mg tablet 50 mg PO BID Qty: 120 9RF omeprazole 20 mg capsule,delayed release(DR/EC) 20 mg PO DAILY irbesartan 300 mg tablet 300 mg PO DAILY acetaminophen [Tylenol Arthritis Pain] 650 mg tablet extended release 650 mg PO Q8H metoprolol succinate 50 mg tablet extended release 24 hr 50 mg PO DAILY warfarin 2.5 mg tablet 2.5 mg PO .QTUWEFR Qty: 90 3RF Protocol: Dose Management Condition: Friday Dose/Route: 3 mg Instruction: 1 x 3 mg tablet Condition: Friday Dose/Route: 3 mg Instruction: 1 x 3 mg tablet Condition: Friday Dose/Route: 2.5 mg Instruction: 1 x 2.5 mg tablet Condition: Friday Dose/Route: 2.5 mg Instruction: 1 x 2.5 mg tablet Condition: Dose/Route: 3 mg Instruction: 1 x 3 mg tablet Condition: Friday Dose/Route: 2.5 mg Instruction: 1 x 2.5 mg tablet Condition: Friday Dose/Route: 3 mg Instruction: 1 x 3 mg tablet Protocol Text: Adjustment Start Date: Friday07/19/24 INR Value: 2.2 INR Date: 07/19/24 Recheck Date: 08/18/24 Rx Instructions: or as directed warfarin 3 mg tablet 3 mg PO .QMOTHSASU Qty: 90 3RF Protocol: Dose Management Condition: Friday Dose/Route: 3 mg Instruction: 1 x 3 mg tablet Condition: Friday Dose/Route: 3 mg Instruction: 1 x 3 mg tablet Condition: Friday Dose/Route: 2.5 mg Instruction: 1 x 2.5 mg tablet Condition: Friday Dose/Route: 2.5 mg Instruction: 1 x 2.5 mg tablet Condition: Dose/Route: 3 mg Instruction: 1 x 3 mg tablet Condition: Friday Dose/Route: 2.5 mg Instruction: 1 x 2.5 mg tablet Condition: Friday Dose/Route: 3 mg Instruction: 1 x 3 mg tablet Protocol Text: Adjustment Start Date: Friday07/19/24 INR Value: 2.2 INR Date: 07/19/24 Recheck Date: 08/18/24 Rx Instructions: or as directed Primary Care Provider: Chucky Ochoa Referrals: Anant Juarez MD [Non-Staff -Ordering Privileges] - 3-5 Days Chucky Ochoa MD [Primary Care Provider] - As Needed Activity Restrictions/Additional Instructions: Will need to follow-up Lamictal level since it is a send out. Recommend follow- up appointment with her neurologist Dr. Juarez Print Language: Indonesian Disposition Disposition: Home, Self Care What to do if you have Problems For any increased pain, shortness of breath, bleeding, nausea or vomiting, chestpain, or any unexpected problems, contact your Primary Care Provider. Call [facility] ([phone]) or report tothe closest Emergency Room. Call 911 if necessary. 09/08/24 1516 Cosigner Signature (if applicable): CC: Dr. Chucky Ochoa MD ~ Signed [facility]06-11-2025 Discharge summary Author Anoop Blackmon [facility] Note Date/Time September 08, 2024 3:16 pm [facility] Medical Records Department [address] [place] [address] Emergency Department Summary 09/08/24 MR#: [id number] Acct: [id number] Name: EZRA GONZALEZ Rep #:[id number] : 1935 89 From: Anoop Blackmon MD PCP: Dr. Chucky Ochoa MD Status:REG ER Location: ED HPI History of Present Illness Chief Complaint: Seizure Detail of Chief Complaint: Patient presents after generalized tonic-clonic seizure. Informant: patient, EMS and SNF Onset/Context/Timing Onset: Today Context: Sudden Onset Timing: Intermittent (Reported duration 10 minutes) Quality: Generalized tonic-clonic seizure Location: Patient facility Current Severity: Gone Maximum Severity: Severe Worsened by: patient reports compliance with her Lamictal. She not had a seizure great Relieved by: Not applicable Associated Symptoms Associated Symptoms: None Narrative Narrative: Patient is a 89-year-old woman who does have history of mild dementia. She is followed by Dr. Anant Juarez. His most recent office note was reviewed. [place] mental status exam improved after she was placed on medicine for dementia. She scored 30 out of 30. Her Lamictal dose has not been changed. She has a known seizure disorder. Patient is on no medicines that have mew that may lower seizure threshold. Her med list that accompanies her from the nursing facility was reviewed. Presently patient denies headache. Denies double vision blurry vision loss of vision. Rhinorrhea decreased hearing. No trouble speech or swallowing. She denies chest pain shortness of breath. She denies nausea, vomit or diarrhea. She denies paresthesia, anesthesia Medicus. She does have problems with balancewhich is multifactorial according to Dr. Juarez office note. Patient has no infectious symptoms. 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 (02/14/07) Persistent atrial fibrillation Chronic kidney disease (CKD) Spinal stenosis Osteoarthritis Atherosclerotic heart disease of [place] coronary artery without angina pectoris Type 2 diabetes mellitus Essential (primary) hypertension Hyperlipidemia Obesity Pleural effusion on right (09/2019) Paroxysmal atrial fibrillation Home Medications ?Medication ?Instructions ?Recorded ?Last Taken ?Type multivitamin 1 cap PO DAILY 12/10/1911/30 History omeprazole 20 mg capsule,delayed 20 mg PO DAILY reflux 11/14/22 12/27/22 History release atorvastatin 40 mg tablet 40 mg PO QHS 01/20/23 Unknow n History ascorbic acid (vitamin C) 250 mg 250 mg PO DAILY 05/19 Unknown History tablet diphenhydramine HCl 25 mg tablet 25 mg PO QHS PRN jayna rgy symptoms 05/19/23 Unknown History (Allergy (diphenhydramine)) warfarin 2.5 mg tablet 2.5 mg PO .QTUWEFR #90 tabs 04/30/24 Unknown Rx warfarin 3 mg tablet 3 mg PO .QMOTHSASU #90 tabs 04/30/24 Unknown Rx donepezil 10 mg tablet 10 mg PO QHS #30 tabs Unknown Rx lamotrigine 25 mg tablet 50 mg (2 x 25 mg) PO BID #12 0 tabs 05/10/24 Unknown Rx amlodipine 10 mg tablet 10 mg PO QDAY #90 tabs 07/01 Unknown Rx acetaminophen 650 mg 650 mg PO Q8H 09/08/24 Unkno wn History tablet,extended release (Tylenol Arthritis Pain) irbesartan 300 mg tablet 300 mg PO DAILY 09/08/24 Unk nown History metoprolol succinate 50 mg 50 mg PO DAILY 09/08/24 Unk nown History tablet,extended release 24 hr Allergy/AdvReac Type Severity Reaction Status Date / Time latex Allergy rash Verified 09/08/24 12:25 amiodarone AdvReac Severe Hair Verified 09/08/24 12:25 falling out in gobs atorvastatin (From Lipitor) AdvReac myalgia Verified 09/08/24 12:25 codeine AdvReac Nausea Verified 09/08/24 12:25 meperidine (From Demerol) AdvReac Nausea/Vom/ Verified 09/08/24 12:25 Diarrhea rosuvastatin (From Crestor) AdvReac myalgia Verified 09/08/24 12:25 Family History Father CAD (coronary artery disease) Brother CAD (coronary artery disease) Surgical History History of kyphoplasty (~05/2020) History of left heart catheterization (12/27/19) History of left hip replacement History of repair of rotator cuff History of knee replacement History of coronary artery stent placement (02/14/07) History of radiofrequency ablation procedure for cardiac arrhythmia (2011) Social History housing: assisted living facility Smoking Status: Former smoker how long ago did patient quit smokin years ago alcohol intake: former substance use type: does not use caffeine: No ROS ROS ED Constitutional Constitutional ED: Denies chills, fever(s), subjective or sweats Eyes Eyes: Denies blurry vision, change in vision or diplopia ENT ENT ED: Denies ear pain, rhinorrhea or sore throat Cardiovascular Cardiovascular: Denies chest pain, palpitations or racing heartbeat Respiratory/Chest Respiratory/Chest: Denies cough, dyspnea or dyspnea on exertion Gastrointestinal Gastrointestinal: Denies abdominal pain, nausea or vomiting Genitourinary Genitourinary ED: Denies dysuria, hematuria or urinary frequency Musculoskeletal Musculoskeletal: Denies arthralgias, myalgias or neck pain Integumentary Denies rash Neurologic Neurologic: Denies weakness Psychiatric Psychiatric: Denies anxiety or depression Endocrine Endocrinology: Denies cold intolerance or heat intolerance Hematologic/Lymphatic Hematologic/Lymphatic: Denies systems reviewed and no addt'l complaints, except as documented EXAM Physical Exam Const Vital Signs: 09/08/24 12:22 09/08/24 14:00 Temperature 98.0 F Temperature Source Oral Pulse Rate 74 63 Respiratory Rate 24 H 17 Blood Pressure 131/70 H Blood Pressure Mean 90 Pulse Ox 98 98 Oxygen Delivery Method Room Air Negative for well nourished or well developed General Appearance ED: NAD; Negative for well developed, cyanotic, diaphoretic or pallor HEENT Reports TM's clear; Denies moist mucous membranes or dry mucous membranes Tympanic Membrane ED: Yes TM's clear Mouth ED: No dry mucous membranes Mouth: No dry mucous membranes Eyes PERRL and EOMs intact bilaterally Neck no lymphadenopathy, supple and no JVD Chest Wall inspection of chest normal and palpation of chest normal Resp normal respiratory effort and clear to auscultation bilaterally Cardio regular rate, S1 normal heart sound, S2 normal heart sound and no murmurs Rhythm: abnormal rhythm irregularly irregular (History of atrial fibrillation onCoumadin.) GI normal to inspection, nondistended, normoactive bowel sounds, non-tender, non-distended and no masses; Negative for hepatosplenomegaly Back/Spine no CVA tenderness Extremity Negative for normal to inspection Extremity Narrative: Patient has numerous bruises. She states she bruises easily because she is on Coumadin. Her level has not been assessed recently. Neuro oriented x3, CN's II-XII intact bilaterally and no sensory deficits noted Neuro Narrative: There is no clonus or Babinski sign. There is no dysmetria. Sensorium / Orientation: alert Motor Exam: strength 5/5 throughout Psych mental status grossly normal Skin no rashes or lesions noted, no wounds and skin turgor normal Skin Narrative: Bruises noted extremities. General Skin Exam: Negative for jaundice or pallor MDM MDM MDM Narrative Medical decision making narrative: Will obtain CBC to assess for any significant shift or bandemia. BMP to assess electrolytes and specifically sodium and calcium. Lamictal level was ordered. This is a send out. INR was ordered as well since she is on Coumadin. Prior records and labs were documented in the HPI narrative. History & Record Review Additional record(s) reviewed:: Prior outpatient record, Prior ED visit and Prior labs Lab Data Attestation: I reviewed the patient's lab results. Lab results narrative: CBC is slightly elevated 13.6 thousand with mild shift. This is due to the seizure with demargination. PT/INR is therapeutic. Basic metabolic panel reveals an elevated BUN to creatinine ratio of 35:1. Glucose is slight [id number] with a normal CO2 anion gap. Labs: Laboratory Results - last 24 hr 09/08/24 12:50 WBC 13.6 H RBC 4.40 Hgb 13.8 Hct 41.4 MCV 94.1 MCH 31.4 MCHC 33.3 RDW Std Deviation 45.2 H RDW Coeff of Sumeet 13.2 Plt Count 326 MPV 10.8 Immature Gran % (Auto) 0.400 Neut % (Auto) 75.9 H Lymph % (Auto) 16.2 L Crawford % (Auto) 6.6 Eos % (Auto) 0.7 Baso % (Auto) 0.2 Absolute Neuts (auto) 10.3 H Absolute Lymphs (auto) 2.21 Nucleated RBC % 0 PT 30.7 H INR 2.9 Sodium 138 Potassium 4.7 Chloride 105 Carbon Dioxide 22.4 Anion Gap 11 BUN 35 H Creatinine 1.00 Estim Creat Clear Calc 39.57 L Est GFR (MDRD) Non-Af 54 L BUN/Creatinine Ratio 35.2 H Glucose 149 H Calcium 8.9 Treatment and Re-Evaluation :: Suspect patient had a breakthrough seizure. Lamictal is a send out. Dose was not adjusted since the level is not known. This will need to be followed up by the nursing staff and her neurologist. Discharge Plan Triage Chief Complaint: Seizure ED Provider: Anoop Blackmon Dx/Rx/DC Orders Clinical Impression: Breakthrough seizure, Anticoagulant long-term use, Polyneuropathy, Hyperlipidemia, Essential (primary) hypertension, Atrial fibrillation, chronic Instructions: ED Seizure, Recurrent (Adult) Prescriptions: No Action multivitamin Capsule 1 cap PO DAILY atorvastatin 40 mg tablet 40 mg PO QHS ascorbic acid (vitamin C) 250 mg tablet 250 mg PO DAILY diphenhydramine HCl [Allergy (diphenhydramine)] 25 mg tablet 25 mg PO QHS PRN (Reason: allergy symptoms) amlodipine 10 mg tablet 10 mg PO QDAY Qty: 90 3RF donepezil 10 mg tablet 10 mg PO QHS Qty: 30 9RF lamotrigine 25 mg tablet 50 mg PO BID Qty: 120 9RF omeprazole 20 mg capsule,delayed release(DR/EC) 20 mg PO DAILY irbesartan 300 mg tablet 300 mg PO DAILY acetaminophen [Tylenol Arthritis Pain] 650 mg tablet extended release 650 mg PO Q8H metoprolol succinate 50 mg tablet extended release 24 hr 50 mg PO DAILY warfarin 2.5 mg tablet 2.5 mg PO .QTUWEFR Qty: 90 3RF Protocol: Dose Management Condition: Friday Dose/Route: 3 mg Instruction: 1 x 3 mg tablet Condition: Friday Dose/Route: 3 mg Instruction: 1 x 3 mg tablet Condition: Friday Dose/Route: 2.5 mg Instruction: 1 x 2.5 mg tablet Condition: Friday Dose/Route: 2.5 mg Instruction: 1 x 2.5 mg tablet Condition: Dose/Route: 3 mg Instruction: 1 x 3 mg tablet Condition: Friday Dose/Route: 2.5 mg Instruction: 1 x 2.5 mg tablet Condition: Friday Dose/Route: 3 mg Instruction: 1 x 3 mg tablet Protocol Text: Adjustment Start Date: Friday07/19/24 INR Value: 2.2 INR Date: 07/19/24 Recheck Date: 08/18/24 Rx Instructions: or as directed warfarin 3 mg tablet 3 mg PO .[id number] Qty: 90 3RF Protocol: Dose Management Condition: Friday Dose/Route: 3 mg Instruction: 1 x 3 mg tablet Condition: Friday Dose/Route: 3 mg Instruction: 1 x 3 mg tablet Condition: Friday Dose/Route: 2.5 mg Instruction: 1 x 2.5 mg tablet Condition: Friday Dose/Route: 2.5 mg Instruction: 1 x 2.5 mg tablet Condition: Dose/Route: 3 mg Instruction: 1 x 3 mg tablet Condition: Friday Dose/Route: 2.5 mg Instruction: 1 x 2.5 mg tablet Condition: Friday Dose/Route: 3 mg Instruction: 1 x 3 mg tablet Protocol Text: Adjustment Start Date: Friday07/19/24 INR Value: 2.2 INR Date: 07/19/24 Recheck Date: 08/18/24 Rx Instructions: or as directed Primary Care Provider: Chucky Ochoa Referrals: Anant Juarez MD [Non-Staff -Ordering Privileges] - 3-5 Days Chucky Ochoa MD [Primary Care Provider] - As Needed Activity Restrictions/Additional Instructions: Will need to follow-up Lamictal level since it is a send out. Recommend follow- up appointment with her neurologist Dr. Juarez Print Language: Indonesian Disposition Disposition: Home, Self Care What to do if you have Problems For any increased pain, shortness of breath, bleeding, nausea or vomiting, chestpain, or any unexpected problems, contact your Primary Care Provider. Call [facility] ([phone]) or report to the closest Emergency Room. Call 911 if necessary. 09/08/24 1516 <Electronically signed by Anoop Blackmon MD> Cosigner Signature (if applicable): CC: Dr. Chucky Ochoa MD ~ Signed [facility] Work Phone: 1(381) 942-238204-03-2025 Evaluation note* Diagnosis Onset Date Resolution Status Admit Date Longstanding persistent atrial fibrillation acute July 01, 2 025 10:35am Essential (primary) hypertension chronic July 01, 2024 10:35am History of coronary artery stent placement February 14, 2007 resolved July 01, 2 025 10:35am [facility] Work Phone: 1(491) 167-118302-10-2025 Evaluation note* Diagnosis Onset Date Resolution Status Admit Date Dementia acute May 10, 2024 2:34pm Epilepsy acute May 10, 2024 2:34pm Transient ischemic attack resolved May 10, 2024 2:34pm [facility] Work Phone: 1(348) 477-379502-10-2025 Evaluation note* Diagnosis Onset Date Resolution Status Admit Date Dementia acute May 10, 2024 2:34pm Epilepsy acute May 10, 2024 2:34pm Transient ischemic attack resolved February 10th, 2025 2:34pm Longstanding persistent atrial fibrillation acute July 01 025 10:35am Essential (primary) hypertension chronic July 01, 2024 10:35am History of coronary artery stent placement February 14, 2007 resolved July 01, 2024 10:35am [facility] Work Phone: 1(693) 319-873303-22-2024 NoteStart PACC Note Home Health Referral Educated patient on Home Care and services available. Patient offered choice of available HHC and agreeable to PT/OT services with [facility]. Care Types: None Isolation Precautions: No active isolations Social Determinates of Health: Tobacco Use: Low Risk (06/18/2023) Patient History Smoking Tobacco Use: Never Smokeless Tobacco Use: Never Passive Exposure: Not on file Social History Substance and Sexual Activity Alcohol Use None Social History Substance and Sexual Activity Drug Use Never Does the patient have any financial resource strain? No Does the patient have any food insecurities? No Does the patient have any housing instabilities? No If any of the above is noted as yes - consider a SAND SCREENER evaluation once the patient returns home. START PATIENT REGISTRATION INFORMATION Order Information Order Signing Physician: Connie Perez APRN * Service Ordered RN ?: No Service Ordered PT ?: Yes Service Ordered OT ?: Yes Service Ordered ST ?: No Service Ordered SAND SCREENER?:No Service Ordered SUPERVISOR ACCOUNTING CLERKS?: No Following Physician: ALEXANDRA HAGEN Following Physician Overseeing Physician: ALEXANDRA HAGEN (Required for Residents only) Agreeable to Follow? No Date/Time of Call 06/20/23 2:40 PM, Spoke with: BRYAN FOR OFFICE-CONFIRMED WITH JOSEP THIS IS HER PHYSICAN AND CAN SEE RECENT NOTES IN [facility] Care Coordination Same Day SOC?: No Primary Care Physician: ALEXADNRA HAGEN Primary Care Physician Primary Care Physician Address: [address] [place] [address] [address] / [facility] [id number] Visit Instructions: N/A Service Discharge Location Type: Assisted Living Service Facility Name: [facility] Floor Facility: N/A Service Room No: 105 Demographics Patient Last Name: Lisa Patient First Name: Ezra Language/Communication Barrier: NONE Service Address: [address] [place] [address] [address] Service City: [facility] ST: [place] Service ZIP: [address] Service (home) Other phone numbers: No relevant phone numbers on file. Emergency Contact: Extended Emergency Contact Information Primary Emergency Contact: Patito [place] Mobile Relation: Son Pulmonary Function Technician needed? No Secondary Emergency Contact: Ty [place] Mobile Relation: Son Admission Information Admit Date: 06/16/2023 Patient status at discharge: Inpatient Admitting Diagnosis: Closed displaced fracture of medial condyle of right humerus, initial encounter [S42.759C] Caregiver Information Caregiver First Name: NA Caregiver Last Name: NA Caregiver Relationship to Patient NA Caregiver Phone Number: NA Caregiver Notes: N/A [employer] List No END PATIENT REGISTRATION INFORMATION Pt Home Health goal To return home and avoid readmission to the hospital by increasing disease process education and preventing falls. COVID Status 1. Do you have any upper respiratory symptoms (cough, SOB, Fever)? No 2. Have you been exposed to anyone with COVID-19 Virus? No Answer only if pending or positive for COVID-19? 1. Agreeable to wear PPE at each visit? No 2. Is the hospital supplying them with PPE upon Discharge? No Start PACC Summary General Report/ Additional Comments Weight bearing: RLE: WBAT LLE: WBAT RUE: NWB LUE: WBAT -Range of motion parameters: No ROM of elbow, ok for ROM wrist/fingers/shoulder BRIEF HOSPITAL COURSE: Ezra is a 87 y.o. 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 Images in Er show right distal humerus fx. she underwent R C3 distal humerus fracture ORIF on 06/18/2023. She recovered postoperatively without complications. Recommendations were to remain nonmobile to right upper extremity, sling as needed, follow-up outpatient with orthopedics. She was evaluated by therapy who recommended return to her assisted living facility with home care services for assistance. Chronic conditions were managed during hospital stay and patient was without any hospital complications. She did have some leukocytosis during her hospital stay however this was monitored and she did not have any other signs of acute infectious process for this believed to be reactive in nature. Patient otherwise with improved pain today, recovering postoperatively as expected and stable for discharge. See full discharge recommendations, follow-up and discharge medications. Discharge Date: 06/20/23 Referral Source-PACC: (Hospital/Unit): [facility] / [id number] A End PACC [facility]03-22-2024 History of Present illness Narrative* Juanjo Villalba RN - 06/20/2023 3:51 PM EDT Dc via DM cot to [facility] with all belongings * Juanjo Villalba RN - 06/20/2023 3:01 PM EDT [facility] * Dc Lombardi - 06/20/2023 2:26 PM EDT [facility] Anticoagulation Management Service (RIA) Inpatient Warfarin Consult HPI: Erza Gonzalez is a 87 y.o. female admitted on 06/16/2023 for Closed displaced fracture of medial condyle of right humerus, initial encounter [S42.845O] History reviewed. No pertinent past medical history. Patient is on warfarin for Afib and has a goal INR 2.0 - 3.0. Pt's home dose of warfarin is 2.5 mg daily. S/sx of bleeding= none noted Interacting medications= Vitamin K 10 mg injection (06/15), tranexamic acid 1,000 mg (06/17) Labs: Recent Labs 06/18/23 0203 06/19/23 0140 HGB 13.9 11.4* HCT 44.1 35.0 PLT 375 260 Recent Labs 06/20/23 0136 INR 1.1 Date INR Dose 06/19 1.1 2.5 mg 06/18 1.1 5 mg Assessment/Plan: 1. Subtherapeutic INR d/t held warfarin doses and vitamin K injection. Will give 2.5 mg today. Consider bridge while INR subtherapeutic as patient can be classified as high risk ([id number] = 8). 2. Monitor for s/s of bleeding and drug interactions. Will adjust dose accordingly 3. RIA will manage while inpatient Dc Lombardi, JpD Candidate Jp BolanosD, BCPS RIA is available daily [phone] via Epic Chat. If no response on Epic Chat then please page [phone]. * Shayne Fonseca MD - 06/20/2023 6:05 AM EDT Department of Orthopedic Surgery Progress Note ASSESSMENT AND PLAN: This is a 87 y.o. female s/p R C3 distal humerus fx ORIF -Operative plans: No further plans for surgery -Weight bearing: RLE: WBAT LLE: WBAT RUE: NWB LUE: WBAT -Range of motion parameters: No ROM of elbow, ok for ROM wrist/fingers/shoulder -Immobilization: Splint to RUE. Keep clean, dry, and intact. -Sling prn -Consults: Acute pain service consult for pain control recommendations -Antibiotics: Post-op -Dressings: Keep dressings on until the follow up office visit. -Other: None -Diet: no restrictions from ortho standpoint -Labs: None -PT/OT -PT recommended outpatient/post discharge?: No formal PT is needed -Medical management, dvt ppx and pain control per primary -DVT ppx recommended?: No DVT ppx is indicated from ortho standpoint -Follow-up with Dr Givens in 2 weeks -Orthopaedic surgery to sign off at this time. Please page resident workers' compensation claims supervisor on Secure Chat with concerns or should further questions arise. Shayne Fonseca MD PGY2 Orthopaedic Surgery 06/20/2023 6:07 AM SUBJECTIVE: Patient sitting in bedside chair reading a book. States that her pain is well controlled and that her block is starting to wear off. Is hopeful to head back home and avoid going to a rehab facility OBJECTIVE: General: A&O x3, in no acute distress, and awake VITALS: BP (!) 186/86 (BP Location: Left arm, Patient Position: Sitting) Pulse 82 Temp 36.3 C (97.4 F) (Temporal) Resp 20 Ht 1.6 m (5' 2.99) Wt 78.9 kg (174 lb) SpO2 95% BMI 30.83 kg/m MSK exam: Right Upper Extremity: -Splint: clean/dry/intact -BCR to fingers -Sensation intact in all distributions -Motor function intact to AIN/PIN/Ulnar * Maryanne Neumann, PT - 06/19/2023 3:11 PM EDT Images from the original note were not included. PHYSICAL THERAPY [facility] Initial Evaluation Name/MRN: Ezra Gonzalez ([id number]) Evaluation Date: 06/19/2023 Date of : 1935 Admission Date: 06/16/2023 1:38 PM Age: 87 y.o. Room[facility]Bed: [facility] A Discharge Recommendation: Home with Home health PT (return to [place]) Equipment Needed: No Assessment IMPRESSION: 87 y.o. pt admitted to [facility] for closed fracture RUE, s/p ORIF R humerus 06/17. They were Min A for bed mobility, Min A for transfers, and Min A for ambulation. Pt limited d/t balance. If from [place] where she can receive Min A for all ADLs and mobility. Would recommend return to [place] and [facility] PTat discharge. Diagnosis: closed fracture RUE, s/p ORIF R humerus 06/17 Prognosis: good Performance Deficits /Impairments: Increased Pain, Decreased Functional Mobility, Decreased Strength, Decreased Cognition, and Decreased Balance Decision Making: Medium Complexity Subjective Pt supine in bed. Agreeable to PT session. Cleared by nursing Pain: Pt denies any current pain. Past Medical History: History reviewed. No pertinent past medical history. Past Surgical History: Past Surgical History: Procedure Laterality Date ORIF HUMERUS FRACTURE Right 06/18/2023 Admission Diagnosis: Patient Active Problem List Diagnosis Date Noted Closed displaced fracture of medial condyle of right humerus, initial encounter 06/16/2023 Medical Precautions: No active isolations Proper PPE donned/doffed in accordance with facility standards. Fall Risk: Dennis Fall Risk Score: 70 (High Risk) Precautions/Restrictions: Braces or Orthoses: sling to RUE Right UE Weight Bearing: Non-Weight Bearing Lines/Drains/Airways: PIV Family/Caregiver Present: none Overall Cognitive Status: Exceptions - Safety judgement: decreased awareness of need for safety Overall Orientation Status: Oriented to Place and Oriented to Person Vision: not assessed this session Hearing: normal Social/Functional History From [place]. Able to receive Min A for all ADLs and mobility. Received meals from dining oro in room or can go to room. Pt typically ambulates with FWW Prior Level of Function ADL Assistance: Independent Ambulation Assistance: Independent Transfer Assistance: Independent Objective Lower Extremity Assessment AROM: WFL PROM: Not assessed this session Strength: WFL (grossly 3+/5 overall) Bed Mobility: Supine to sit: Min Assist Sit to supine: Min Assist Trunk elevation and RUE assist Transfers Sit to stand: Min Assist Stand to sit: Min Assist EOB x1, toilet x1, LOB from toilet needing correction Ambulation Ambulation 1 Assistive device(s) used: SUPERVISOR ACCOUNTING CLERKS Assist level: Min Assist Distance (ft): 15' + 15' Quality of gait: shuffling, narrow DOROTHEA, postural sway Outcome Measures AM-PAC How much HELP from another person do you currently need Turning from your back to your side while in a flat bed without using bedrails?: None Moving from lying on your back to sitting on the side of a flat bed without using bedrails?: None Moving to and from a bed to a chair (including a wheelchair)?: None Standing up from a chair using your arms (wheelchair or bedside chair)?: A Little Walking in a hospital room?: A Little Stair climbing assessed?: No AM-PAC Inpatient Mobility Raw Score (No Stairs) : 18 [facility] Score: Walked 25 ft or more (i.e. walked outside of room) Plan Pt would benefit from skilled acute PT services to address Strengthening, Balance Training, Functional Mobility Training, Endurance Training, Gait Training, Stair Training, Safety Education and Training, Patient/Caregiver Training, and Equipment Evaluation/Education. Frequency: 5x/week for 4 weeks Barriers: Pain, Impulsivity, and Limited safety awareness Safety/Education Safety Safety Devices in place: call light within reach, left in bed, patient at risk for falls, and nursenotified Restraints: No Education Education Given To: patient Education Provided: PT Role, PT Goals, Gait Training, Plan of Care, Transfer Training, and Equipment Education Method: Verbal Barriers to Learning: Cognition Education Outcome: Continued Education Needed Goals Patient Stated Goal: to go home Encounter Problems Encounter Problems (Active) Mobility Patient will ambulate 100 feet with modified independence and least restrictive device in order to improve safety and independence with mobility. Start: 06/19/23 Expected End: 07/17/23 Transfers Patient will perform bed mobility with independence in order to improve independence and prepare for out of bed mobility. Start: 06/19/23 Expected End: 07/17/23 Patient will complete functional transfer with least restrictive device with modified independence in order to prepare for ambulation. Start: 06/19/23 Expected End: 07/17/23 Therapy Time Individual Co-treatment Time In 1404 Time Out 1431 Minutes 27 Timed Code Treatment Minutes: (stephanie stone, 1 FA) Maryanne Neumann PT Patient's Physical Therapy Plan of Care supervision is transferred to a [facility] Physical Therapist. Goals and/or treatment plan was established in collaboration with patient/family/other representatives. * Enedelia Sanches [facility] - 06/19/2023 1:50 PM EDT [facility] Anticoagulation Management Service (RIA) Inpatient Warfarin Consult HPI: Ezra Gonzalez is a 87 y.o. female admitted on 06/16/2023 for Closed displaced fracture of medial condyle of right humerus, initial encounter [S42.098K] History reviewed. No pertinent past medical history. Patient is on warfarin for Afib and has a goal INR 2.0 - 3.0. Pt's home dose of warfarin is 2.5 mg daily. S/sx of bleeding= none noted Interacting medications= Vitamin K 10 mg injection (06/15), tranexamic acid 1,000 mg (06/17) Labs: Recent Labs 06/16/23 1409 06/18/23 0203 06/19/23 0140 HGB 12.8 13.9 11.4* HCT 38.9 44.1 35.0 PLT 357 375 260 Recent Labs 06/19/23 1159 INR 1.1 Date INR Dose 06/18 1.1 5 mg Assessment/Plan: 1. Subtherapeutic INR d/t held warfarin doses and vitamin K injection. Will give 5mg today. Consider bridge while INR subtherapeutic as patient can be classified as high risk ([id number] = 8). 2. Monitor for s/s of bleeding and drug interactions. Will adjust dose accordingly 3. RIA will manage while inpatient Dc Lombardi, PharmD Candidate Toshia Sanches, JpD, BCPS RIA is available daily [phone] via SportsBeep Chat. If no response on Epic Chat then please page [phone]. * Kavon Diallo, OT - 06/19/2023 11:54 AM EDT Images from the original note were not included. OCCUPATIONAL THERAPY [facility] Initial Evaluation Name/MRN: Ezra Gonzalez ([id number]) Evaluation Date: 06/19/2023 Date of : 1935 Admission Date: 06/16/2023 1:38 PM Age: 87 y.o. Room/Bed: [facility] A Discharge Recommendation: Continue to assess pending progress, IP Rehab Other: Continue to assess pending progress. Assessment IMPRESSION: Pt presented with closed displaced fracture of medial epicondyle of R humerus, ORIF s/scott 06/17. Pt stated she could not feel or move arm, block still intact. Pt was educated on RUE NWB status. Pt stated her baseline is independent, currently presents below functional baseline. Pt is limited by NWB precautions as well as diminished balance, strength, and overall independence with ADL's and functional mobility. Pt Mod A LB dressing and toileting, Max A Ub dressing due to NWB RUE, Min A bed mobility and sit to stand as well as Min A for functional ambulation. Recommending IPR to address functional limitations. Recommending OT services while admitted to increase functional outcomes. Performance Deficits /Impairments: Decreased Functional Mobility, Decreased ADL status, Decreased ROM, Decreased Strength, Decreased Endurance, Decreased Sensation, Decreased Balance, and Decreased Coordination Prognosis: Fair Decision Making: Medium Complexity Subjective Pt supine in bed upon OT arrival; agreeable to eval. Pt left EOB at end of session, RN cleared and call light within reach. Pain: Pt denies any current pain. Past Medical History: History reviewed. No pertinent past medical history. Past Surgical History: Past Surgical History: Procedure Laterality Date ORIF HUMERUS FRACTURE Right 06/18/2023 Admission Diagnosis: Patient Active Problem List Diagnosis Date Noted Closed displaced fracture of medial condyle of right humerus, initial encounter 06/16/2023 Medical Precautions: No active isolations Proper PPE donned/doffed in accordance with facility standards. Fall Risk: Dennis Fall Risk Score: 70 (High Risk) Precautions/Restrictions: Right UE Weight Bearing: Non-Weight Bearing Family/Caregiver Present: none Overall Cognitive Status: WFL Overall Orientation Status: Oriented x4 Social/Functional History Patient admitted from SNF. Assistive Equipment: front wheeled walker Prior Level of Function ADL Assistance: Independent Ambulation Assistance: Independent Transfer Assistance: Independent Objective ADLs LE Dressing: Mod Assist, Pt was able to doff bilateral socks at EOB, could not nicholas socks due to limited use of RUE. Toileting: Mod Assist, Pt was able to perform posterior toilet hygiene with Mod A for stability. Ptwas able to wash LUE at sink with contact guard for stability, pt compensated by leaning LUE on sink due to fatigue. Upper Extremity Assessment AROM: WNL LUE, pt could not move RUE due to block still intact. Strength: WFL LUE, did not assess RUE Vision: wears glasses at all times and and are being used during the eval Hearing: normal Bed Mobility Supine to sit: Min Assist Sit to supine: Contact Guard Head of bed elevated, instructed pt to use handrail to assist and NWB precuations while performing. Transfers/Functional Mobility Sit to stand: Min Assist Stand to sit: Contact Guard Toilet: Min Assist Standing balance: Min Assist Pt stated she used FWW prior to admission, due to RUE NWB status, used handheld assistance requiring Min A for tranfers and functional mobility. Pt educated on RUE NWB precautions while performing ADL's and functional mobility. During toilet transfer, pt required mod verbal cues to process foot placement prior to sitting on toilet. Device(s) used: none AM-PAC AM-PAC Inpatient Daily Activity Raw Score: 13 ADL Inpatient CMS G-Code Modifier: CL Plan Pt would benefit from skilled acute OT services to address Strengthening, ROM, Balance Training, Functional Mobility Training, Endurance Training, Safety Education and Training, Patient/Caregiver Training, Equipment Evaluation/Education, and Self-Care/ADL Training. Frequency: 2x/week for 4 weeks Barriers: New weightbearing/ROM restrictions, Decreased endurance, Decreased sensation, Upper extremity weakness, and Lower extremity weakness Prognosis: good Safety/Education Safety Safety Devices in place: call light within reach, gait belt, nurse notified, and patient left sitting EOB Restraints: No Education Education Given To: patient Education Provided: OT Role, Plan of Care, Precautions, ADL Adaptive Strategies, Transfer Training,and Fall Prevention Education Education Method: Verbal Barriers to Learning: None Education Outcome: Verbalized Understanding Goals Patient Stated Goal: To be able to use my right arm. Encounter Problems Encounter Problems (Active) Bathing Patient will utilize adaptive techniques to bathe body with supervision. Start: 06/19/23 Expected End: 07/17/23 Dressing Upper Extremities Patient will complete upper body dressing with Min A Start: 06/19/23 Expected End: 07/17/23 Dressings Lower Extremities Patient will dress lower body with supervision. Start: 06/19/23 Expected End: 07/17/23 Therapy Time Individual Co-treatment Time In 1154 Time Out 1225 Minutes 31 Variance: 11 (Self Care- 1) Kavon Diallo OT Patient's Occupational Therapy Plan of Care supervision is transferred to a [facility] Occupational Therapist. Goals and/or treatment plan was established in collaboration with patient/family/other representatives. * Connie Perez APRN - GLASS TECHNICIAN/INSTALLER - 06/19/2023 9:52 AM EDT Images from the original note were not included. Hospitalist Progress Note 06/19/2023 Subjective: Admit Date: 06/16/2023 PCP: No primary care provider on file. Room#: E7-517/G6-638 A BRIEF HOSPITAL COURSE: Ezra is a 87 y.o. 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 Images in Er show humerus fx. Ortho saw patient in ER and splinted it. Ortho stated patient ok to go home, but patient does not feel safe going back to [place]. Admitted for further evaluation and management. Interval History: No overnight issues. She is post op day #1 from R C3 distal humerus fx ORIF. She reports no pain this morning, no numbness of tingling to RUE. She has not had a BM yet today, small one yesterday. Eating and drinking fair, looking forward to DC. Understands likely not back to [place] as she needs furtherassistance. Case and plan discussed with patient and bedside nurse. All questions answered. Adult diet Regular 24HR INTAKE/OUTPUT: Intake/Output Summary (Last 24 hours) at 06/19/2023 0954 Last data filed at 06/19/2023 0540 Gross per 24 hour Intake 1711 ml Output 600 ml Net 1111 ml Past Medical History: History reviewed. No pertinent past medical history. LABS: CBC: Recent Labs 06/16/23 1409 06/18/23 0203 06/19/23 0140 WBC 16.2* 15.5* 12.7* RBC 4.40 4.96 3.98 HGB 12.8 13.9 11.4* HCT 38.9 44.1 35.0 MCV 88.4 88.9 87.9 RDW 13.6 13.8 13.6 PLT 357 375 260 BMP: Recent Labs 06/16/23 1409 06/18/23 0203 06/19/23 0140 NA 136 133* 133* K 4.5 4.6 4.7 CL 99 98 102 CO2 29 25 21* BUN 26* 24* 27* CREATININE 0.79 0.83 0.84 GLUCOSE 186* 163* 263* CALCIUM 8.6 8.8 8.3* ANIONGAP 7 10 11 LIVER PROFILE:No results for input(s): AST, ALT, BILITOT, ALKPHOS, PROT in the last 72 hours. No lab exists for component: LABALBU PT/INR: Recent Labs 06/16/23 1409 06/17/23 0604 PROTIME 22.3* 14.5* INR 2.2* 1.4* CARDIAC ENZYMES: No results for input(s): TROPONINI in the last 72 hours. Procalcitonin: Lab Results Component Value Date PROCAL 0.06 06/18/2023 COVID-19 PCR: No results for input(s): COVID19 in the last 72 hours. Objective: Vitals: BP (!) 161/83 (BP Location: Left arm, Patient Position: Sitting) Pulse 85 Temp 36.3 C (97.4 F) (Temporal) Resp 16 Ht 5' 2.99 (1.6 m) Wt 174 lb (78.9 kg) SpO2 95% BMI 30.83 kg/m Pulse Ox: SpO2 Av.3 % Min: 93 % Max: 99 % Supplemental O2: O2 Flow Rate (L/min): 4 L/min Physical Exam Constitutional: Appearance: Normal appearance. Cardiovascular: Rate and Rhythm: Regular rhythm. Pulses: Normal pulses. Heart sounds: Normal heart sounds. Pulmonary: Effort: Pulmonary effort is normal. Breath sounds: Normal breath sounds. Musculoskeletal: Comments: Right arm in cast, sling and swalth Skin: General: Skin is warm. Findings: No rash. Neurological: Mental Status: She is alert. Medications: Scheduled PRN atorvastatin, 40 mg, Oral, Nightly docusate sodium, 100 mg, Oral, BID donepezil, 10 mg, Oral, Nightly insulin lispro, 0-6 Units, SubCUTAneous, TID WC And insulin lispro, 0-6 Units, SubCUTAneous, Nightly lamoTRIgine, 50 mg, Oral, BID metoprolol tartrate, 25 mg, Oral, BID pantoprazole, 40 mg, Oral, qAM AC PRN medications: acetaminophen OR acetaminophen, dextrose, dextrose, glucagon (rDNA), glucose, HYDROmorphone, naloxone, ondansetron ODT OR ondansetron, oxyCODONE OR oxyCODONE, polyethylene glycol (PEG) 3350 Continuous sodium chloride, 100 mL/hr, Last Rate: Stopped (06/18/23 1435) Assessment Data: (CAT1) Reviewed 2 labs/studies ordered by another provider not previously counted (each=1, panels count as 1). (CAT1) Ordered 2 new labs and/or studies (each=1, panels count as 1). (LOW: 2x CAT1 or independent historian MOD: 3x CAT1 or 1x CAT3 EXTENSIVE: 3x CAT1 and 1x CAT3) Acute, acute on chronic, unstable/uncontrolled chronic problems/diagnoses: Right humerus Fracture S/p right humerus ORIF 06/18/2023 S/p fall Chronic anticoagulation use Leukocytosis-VS stable, no indication of infectious process this far Constipation Stable chronic problems affecting care, new non-acute diagnoses: HTN HPL PAF Obesity DM2 with hyperglycemia Plan As a result of the above findings & factors, the following mgmt was pursued: -medical admit, ortho following -multimodal pain control -NWB RUE -Bowel regimen, diet as tolerated, supportive measures -restart Coumadin today, cleared with ortho, consult to pharmacy to dose - am labs, replace lytes prn - PT/OT/CM/SW - delirium precautions: increase activity and limit nighttime disturbances - DVT prophylaxis: SCDs and encourage ambulation Complexity: Acute, complicated injury (MOD). Risk: Prescription drug/IVF/colloid was initiated, discontinued, adjusted; or reviewed with decision to maintain current orders (MOD). Advance Directive: Full Code Anticipated Discharge - Date - 1-2 days - Location - Skilled Facility - Pending the following - Placement availability, therapy recommendations Total time spent (which include face to face and non face to face encounters) : 35 minutes Extended Emergency Contact Information Primary Emergency Contact: Patito [place] Mobile Relation: Son Pulmonary Function Technician needed? No Secondary Emergency Contact: MariiaTy collins Mobile Relation: Son JANNETTE Hall CNP Division of Hospitalist Medicine [facility] * Huma Tavarez MD - 06/19/2023 6:14 AM EDT Department of Orthopedic Surgery Progress Note ASSESSMENT AND PLAN: This is a 87 y.o. female s/p R C3 distal humerus fx ORIF -Operative plans: No further plans for surgery -Weight bearing: RLE: WBAT LLE: WBAT RUE: NWB LUE: WBAT -Range of motion parameters: No ROM of elbow, ok for ROM wrist/fingers/shoulder -Immobilization: Splint to RUE. Keep clean, dry, and intact. -Sling prn -Consults: Acute pain service consult for pain control recommendations -Antibiotics: 24 hours of post op antibiotics. -Dressings: Keep dressings on until the follow up office visit. -Other: None -Diet: no restrictions from ortho standpoint -Labs: Check hemoglobin tomorrow, Hgb 11.4 -PT/OT -PT recommended outpatient/post discharge?: No formal PT is needed -Medical management, dvt ppx and pain control per primary -DVT ppx recommended?: No DVT ppx is indicated from ortho standpoint -Follow-up with Dr Givens in 2 weeks -Ortho to follow. SUBJECTIVE: Block still intact. Had difficulty sleeping overnight. Denies new numbness and tingling. Pain well-controlled. OBJECTIVE: General: A&O x3, in no acute distress, and awake VITALS: BP (!) 161/83 (BP Location: Left arm, Patient Position: Sitting) Pulse 85 Temp 36.3 C (97.4 F) (Temporal) Resp 16 Ht 1.6 m (5' 2.99) Wt 78.9 kg (174 lb) SpO2 95% BMI 30.83 kg/m MSK exam: Right Upper Extremity: -Splint: clean/dry/intact -BCR to fingers -Sensation and motor exam limited 2/2 block intact * Ele Butcher - 06/18/2023 12:38 PM EDT Nutrition rescreen completed. Chart reviewed. Patient to be monitored and followed by the diet auto brake technician. NICA Watts * Louisa Cespedes OT - 06/18/2023 8:26 AM EDT Images from the original note were not included. OCCUPATIONAL THERAPY [facility] Name/MRN: Ezra Gonzalez ([id number]) Date: 06/18/2023 OT eval and treat order received. Patient chart reviewed. Per Ortho note, Plan for ORIF od R distal humerus. Will hold evaluation till after surgery. Louisa Cespedes OT * JANNETTE Hall CNP - 06/18/2023 8:00 AM EDT Images from the original note were not included. Hospitalist Progress Note 06/18/2023 Subjective: Admit Date: 06/16/2023 PCP: No primary care provider on file. Room#: E7-707/E770 A BRIEF HOSPITAL COURSE: Ezra is a 87 y.o. 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 Images in Er show humerus fx. Ortho saw patient in ER and splinted it. Ortho stated patient ok to go home, but patient does not feel safe going back to [place]. Admitted for further evaluation and management. Interval History: No overnight issues. Did not have surgery yesterday due to other extended OR cases, plan for today.Reports pain better controlled today. Case and plan discussed with patient. Reports no BM in last 3days, denies N/V or abdominal pain. All questions answered. NPO diet 24HR INTAKE/OUTPUT: No intake or output data in the 24 hours ending 06/18/23 1242 Past Medical History: History reviewed. No pertinent past medical history. LABS: CBC: Recent Labs 06/16/23 1409 06/18/23 0203 WBC 16.2* 15.5* RBC 4.40 4.96 HGB 12.8 13.9 HCT 38.9 44.1 MCV 88.4 88.9 RDW 13.6 13.8 PLT 357 375 BMP: Recent Labs 06/16/23 1409 06/18/23 0203 NA 136 133* K 4.5 4.6 CL 99 98 CO2 29 25 BUN 26* 24* CREATININE 0.79 0.83 GLUCOSE 186* 163* CALCIUM 8.6 8.8 ANIONGAP 7 10 LIVER PROFILE:No results for input(s): AST, ALT, BILITOT, ALKPHOS, PROT in the last 72 hours. No lab exists for component: LABALBU PT/INR: Recent Labs 06/16/23 1409 06/17/23 0604 PROTIME 22.3* 14.5* INR 2.2* 1.4* CARDIAC ENZYMES: No results for input(s): TROPONINI in the last 72 hours. Procalcitonin: No results found for: PROCAL COVID-19 PCR: No results for input(s): COVID19 in the last 72 hours. Objective: Vitals: BP 139/86 (BP Location: Left arm, Patient Position: Sitting) Pulse 93 Temp 36.9 C (98.4F) (Temporal) Resp 16 Ht 5' 2.99 (1.6 m) Wt 174 lb (78.9 kg) SpO2 95% BMI 30.83 kg/m Pulse Ox: SpO2 Av.4 % Min: 94 % Max: 97 % Supplemental O2: O2 Flow Rate (L/min): 2 L/min Physical Exam Constitutional: Appearance: Normal appearance. Cardiovascular: Rate and Rhythm: Regular rhythm. Pulses: Normal pulses. Heart sounds: Normal heart sounds. Pulmonary: Effort: Pulmonary effort is normal. Breath sounds: Normal breath sounds. Musculoskeletal: Comments: Right arm in cast, sling and swalth Skin: General: Skin is warm. Findings: No rash. Neurological: Mental Status: She is alert. Medications: Scheduled PRN atorvastatin, 40 mg, Oral, Nightly donepezil, 10 mg, Oral, Nightly insulin lispro, 0-6 Units, SubCUTAneous, TID WC And insulin lispro, 0-6 Units, SubCUTAneous, Nightly lamoTRIgine, 50 mg, Oral, BID metoprolol tartrate, 25 mg, Oral, BID pantoprazole, 40 mg, Oral, qAM AC PRN medications: acetaminophen OR acetaminophen, dextrose, dextrose, glucagon (rDNA), glucose, HYDROmorphone, naloxone, ondansetron ODT OR ondansetron, oxyCODONE OR oxyCODONE, polyethylene glycol (PEG) 3350 Continuous sodium chloride, 100 mL/hr, Last Rate: 100 mL/hr (06/18/23 1116) Assessment Data: (CAT1) Reviewed 2 labs/studies ordered by another provider not previously counted (each=1, panels count as 1). (CAT1) Ordered 2 new labs and/or studies (each=1, panels count as 1). (LOW: 2x CAT1 or independent historian MOD: 3x CAT1 or 1x CAT3 EXTENSIVE: 3x CAT1 and 1x CAT3) Acute, acute on chronic, unstable/uncontrolled chronic problems/diagnoses: Right humerus Fracture S/p fall Chronic anticoagulation use Leukocytosis-VS stable, no indication of infectious process this far Constipation Stable chronic problems affecting care, new non-acute diagnoses: Htn HPL PAF Obesity DM2 with hyperglycemia Plan As a result of the above findings & factors, the following mgmt was pursued: -medical admit, ortho following -multimodal pain control -NWB RUE, NPO -ortho following, ORIF right distal humerus planned -restart anti-coag postop per ortho recs -add Colace -SSI -start IV fluid while remaining NPO - am labs, replace lytes prn - PT/OT/CM/SW - delirium precautions: increase activity and limit nighttime disturbances - DVT prophylaxis: SCDs and encourage ambulation Complexity: Acute illness with systemic symptoms (MOD). Risk: Prescription drug/IVF/colloid was initiated, discontinued, adjusted; or reviewed with decision to maintain current orders (MOD). Advance Directive: Full Code Anticipated Discharge - Date - 3-5 days - Location - Skilled Facility - Pending the following - Surgical intervention, post op recovery, pain control, therapy evaluation Total time spent (which include face to face and non face to face encounters) : 36 minutes Extended Emergency Contact Information Primary Emergency Contact: GillesrodriguePatito Mobile Relation: Son Pulmonary Function Technician needed? No Secondary Emergency Contact: GillesrodrigueTy Mobile Relation: Son JANNETTE Hall CNP Division of Hospitalist Medicine [facility] * Maryanne Neumann PT - 06/18/2023 7:27 AM EDT Images from the original note were not included. PHYSICAL THERAPY [facility] Name/MRN: Ezra Gonzalez ([id number]) Date: 06/18/2023 PT orders received and chart reviewed. Per ortho note, Plan for ORIF R distal humerus. Will hold and attempt following surgery. Maryanne Neumann PT * Evette Viera MD - 06/18/2023 6:44 AM EDT Department of Orthopedic Surgery Progress Note ASSESSMENT AND PLAN: This is a 87 y.o. female with R C3 distal humerus fx -Plan for ORIF R humerus today -NPO now -Cleared -Consent in chart -Keep splint C/D/I -NWB RUE -Ice/elevate SUBJECTIVE: Doing fine. Pain well controlled in splint. Answered all questions about OR. OBJECTIVE: General: A&O x3, in no acute distress, and awake VITALS: BP 139/86 (BP Location: Left arm, Patient Position: Sitting) Pulse 93 Temp 36.9 C (98.4F) (Temporal) Resp 16 Ht 1.6 m (5' 3) Wt 78.9 kg (174 lb) SpO2 95% BMI 30.82 kg/m MSK exam: Right Upper Extremity: -Dressing: clean/dry/intact -TTP: Elbow -BCR to fingers -SILT in radial/median/ulnar/axillary nerve distributions -Motor + AIN/PIN/ulnar nerve functions * Evette Viera MD - 06/17/2023 3:55 PM EDT Due to OR availability, case cancelled for today. Moved to tomorrow, 06/17. Ok for diet today. NPO @IN. Keep splint C/D/I. Evette Viera MD Orthopaedic Surgery, PGY-5 [phone] * Connie Perez APRN - GLASS TECHNICIAN/INSTALLER - 06/17/2023 7:46 AM EDT Images from the original note were not included. Hospitalist Progress Note 06/17/2023 Subjective: Admit Date: 06/16/2023 PCP: No primary care provider on file. Room#: 44/44 BRIEF HOSPITAL COURSE: Ezra is a 87 y.o. 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 Images in Er show humerus fx. Ortho saw patient in ER and splinted it. Ortho stated patient ok to go home, but patient does not feel safe going back to [place] at this [place]. Since patient staying ortho might pursue surgery. Will admit for further evaluation and management. Interval History: No overnight issues. Still with RUE pain, controlled with pain medications. She denies acute issuesor complaints today. Case and plan discussed with patient and bedside nurse. All questions answered. NPO diet 24HR INTAKE/OUTPUT: No intake or output data in the 24 hours ending 06/17/23 0746 Past Medical History: No past medical history on file. LABS: CBC: Recent Labs 06/16/23 1409 WBC 16.2* RBC 4.40 HGB 12.8 HCT 38.9 MCV 88.4 RDW 13.6 PLT 357 BMP: Recent Labs 06/16/23 1409 NA 136 K 4.5 CL 99 CO2 29 BUN 26* CREATININE 0.79 GLUCOSE 186* CALCIUM 8.6 ANIONGAP 7 LIVER PROFILE:No results for input(s): AST, ALT, BILITOT, ALKPHOS, PROT in the last 72 hours. No lab exists for component: LABALBU PT/INR: Recent Labs 06/16/23 1409 06/17/23 0604 PROTIME 22.3* 14.5* INR 2.2* 1.4* CARDIAC ENZYMES: No results for input(s): TROPONINI in the last 72 hours. Procalcitonin: No results found for: PROCAL COVID-19 PCR: No results for input(s): COVID19 in the last 72 hours. Objective: Vitals: BP 120/77 Pulse 88 Temp 36.7 C (98.1 F) (Oral) Resp 24 Ht 5' 3 (1.6 m) Wt 174 lb(78.9 kg) SpO2 94% BMI 30.82 kg/m Pulse Ox: SpO2 Av.8 % Min: 90 % Max: 99 % Supplemental O2: Physical Exam Constitutional: Appearance: Normal appearance. Cardiovascular: Rate and Rhythm: Regular rhythm. Pulses: Normal pulses. Heart sounds: Normal heart sounds. Pulmonary: Effort: Pulmonary effort is normal. Breath sounds: Normal breath sounds. Musculoskeletal: Comments: Right arm in cast, sling and swalth Skin: General: Skin is warm. Findings: No rash. Neurological: Mental Status: She is alert. Medications: Scheduled PRN PRN medications: acetaminophen OR acetaminophen, HYDROmorphone, naloxone, ondansetron ODT OR ondansetron, oxyCODONE OR oxyCODONE, polyethylene glycol (PEG) 3350 Continuous Assessment Data: (CAT1) Reviewed 3 or more labs/studies ordered by another provider not previously counted (each=1, panels count as 1). (CAT1) Ordered 2 new labs and/or studies (each=1, panels count as 1). (LOW: 2x CAT1 or independent historian MOD: 3x CAT1 or 1x CAT3 EXTENSIVE: 3x CAT1 and 1x CAT3) Acute, acute on chronic, unstable/uncontrolled chronic problems/diagnoses: Right humerus Fracture S/p fall Chronic anticoagulation use Leukocytosis-VS stable, no indication of infectious process this far Stable chronic problems affecting care, new non-acute diagnoses: Htn HPL PAF Obesity Plan As a result of the above findings & factors, the following mgmt was pursued: -medical admit -multimodal pain control -NWB RUE -ortho following, ORIF right distal humerus planned today -restart anti-coag postop per ortho recs -confirm and restart home meds - am labs, replace lytes prn - PT/OT/CM/SW - delirium precautions: increase activity and limit nighttime disturbances - DVT prophylaxis: SCDs and encourage ambulation Complexity: Acute, complicated injury (MOD). Risk: Prescription drug/IVF/colloid was initiated, discontinued, adjusted; or reviewed with decision to maintain current orders (MOD). Advance Directive: Full Code Anticipated Discharge - Date - 3-5 days - Location - Skilled Facility - Pending the following - post op recovery, pain control, therapy evaluations Total time spent (which include face to face and non face to face encounters) : 37 minutes Extended Emergency Contact Information Primary Emergency Contact: Patito [place] Mobile Relation: Son Pulmonary Function Technician needed? No Secondary Emergency Contact: Ty [place] Mobile Relation: Son JANNETTE Hall CNP Division of Hospitalist Medicine [facility] * Shayne Fonseca MD - 06/17/2023 6:11 AM EDT Department of Orthopedic Surgery Progress Note ASSESSMENT AND PLAN: This is a 87 y.o. female with R C3 distal humerus fx -Operative plans: Plan for ORIF R distal humerus today -Weight bearing: RLE: WBAT LLE: WBAT RUE: NWB LUE: WBAT -Range of motion parameters: No ROM of elbow or shoulder, ok for ROM wrist/fingers -Immobilization: Splint to RUE. Keep clean, dry, and intact. -Consults: Internal medicine consult for medical management -Antibiotics: No antibiotics needed. -Dressings: None -Other: Awaiting am PT/INR results -Diet: NPO in anticipation of surgery -Labs: Daily labs -PT/OT -PT recommended outpatient/post discharge?: Yes, for basic ADLs -Ice & elevate -Medical management, dvt ppx and pain control per primary -DVT ppx recommended?: Per primary team -Follow-up with Dr Givens in 2 weeks -Ortho to follow. Shayne Fonseca MD PGY2 Orthopaedic Surgery 06/17/2023 6:13 AM SUBJECTIVE: Patient resting comfortably in bed. Pain is well controlled. Denies fever/chills/systemic symptoms, new numbness/tingling, chest pain, SOB. Reports that she didn't sleep well last night since she wasn't moved up to the floor from the ED. Understands plan for surgery this afternoon and is ready to proceed. OBJECTIVE: General: A&O x3, in no acute distress, and awake VITALS: BP 121/87 Pulse 83 Temp 36.7 C (98.1 F) (Oral) Resp 16 Ht 1.6 m (5' 3) Wt 78.9 kg (174 lb) SpO2 97% BMI 30.82 kg/m MSK exam: Right Upper Extremity: -Dressing: clean/dry/intact -TTP: Elbow -BCR to fingers -SILT in radial/median/ ulnar nerve distributions -Motor + AIN/PIN/ulnar nerve functions documented in this [facility]03-22-2024 Miscellaneous Notes* Care Coordination - Unknown Case Management - 06/20/2023 2:58 PM EDT Patient Choice Patient Name: EZRA GONZALEZ Date of : 1935 All Providers Sent Referral Name: [facility] Phone: [phone] Address: [address] [place] [id number] * Home Care - Vivian Bills RN - 06/20/2023 2:40 PM EDT Start PACC Note Home Health Referral Educated patient on Home Care and services available. Patient offered choice of available HHC and agreeable to PT/OT services with [facility] - Home Care. Care Types: None Isolation Precautions: No active isolations Social Determinates of Health: Tobacco Use: Low Risk (06/18/2023) Patient History Smoking Tobacco Use: Never Smokeless Tobacco Use: Never Passive Exposure: Not on file Social History Substance and Sexual Activity Alcohol Use None Social History Substance and Sexual Activity Drug Use Never Does the patient have any financial resource strain? No Does the patient have any food insecurities? No Does the patient have any housing instabilities? No If any of the above is noted as yes - consider a SAND SCREENER evaluation once the patient returns home. START PATIENT REGISTRATION INFORMATION Order Information Order Signing Physician: Connie Perez APRN * Service Ordered RN ?: No Service Ordered PT ?: Yes Service Ordered OT ?: Yes Service Ordered ST ?: No Service Ordered SAND SCREENER?:No Service Ordered SUPERVISOR ACCOUNTING CLERKS?: No Following Physician: ALEXANDRA HAGEN Following Physician Overseeing Physician: ALEXANDRA HAGEN (Required for Residents only) Agreeable to Follow? No Date/Time of Call 06/20/23 2:40 PM, Spoke with: BRYAN FOR OFFICE-CONFIRMED WITH JOSEP THIS IS HERPHYSICAN AND CAN SEE RECENT NOTES IN [facility] Care Coordination Same Day SOC?: No Primary Care Physician: ALEXANDRA HAGEN Primary Care Physician Primary Care Physician Address: [address] [facility] [address] / [facility] [address] Visit Instructions: N/A Service Discharge Location Type: Assisted Living Service Facility Name: [facility] Service Floor Facility: N/A Service Room No: 105 Demographics Patient Last Name: Lisa Patient First Name: Ezra Language/Communication Barrier: NONE Service Address: [facility] Service City: [facility] ST: [place] Service ZIP: [address] Service (home) Other phone numbers: No relevant phone numbers on file. Emergency Contact: Extended Emergency Contact Information Primary Emergency Contact: Patito [place] Mobile Relation: Son Pulmonary Function Technician needed? No Secondary Emergency Contact: Ty [place] Mobile Relation: Son Admission Information Admit Date: 06/16/2023 Patient status at discharge: Inpatient Admitting Diagnosis: Closed displaced fracture of medial condyle of right humerus, initial encounter [S42.111E] Caregiver Information Caregiver First Name: NA Caregiver Last Name: NA Caregiver Relationship to Patient NA Caregiver Phone Number: NA Caregiver Notes: N/A [employer] List No END PATIENT REGISTRATION INFORMATION Pt Home Health goal To return home and avoid readmission to the hospital by increasing disease process education and preventing falls. COVID Status 1. Do you have any upper respiratory symptoms (cough, SOB, Fever)? No 2. Have you been exposed to anyone with COVID-19 Virus? No Answer only if pending or positive for COVID-19? 1. Agreeable to wear PPE at each visit? No 2. Is the hospital supplying them with PPE upon Discharge? No Start PACC Summary General Report/ Additional Comments Weight bearing: RLE: WBAT LLE: WBAT RUE: NWB LUE: WBAT -Range of motion parameters: No ROM of elbow, ok for ROM wrist/fingers/shoulder BRIEF HOSPITAL COURSE: Ezra is a 87 y.o. 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 Images in Er show right distal humerus fx. she underwent RC3 distal humerus fracture ORIF on 06/18/2023. She recovered postoperatively without complications. Recommendations were to remain nonmobile to right upper extremity, sling as needed, follow-up outpatient with orthopedics. She was evaluated by therapy who recommended return to her assisted living facility with home care services for assistance. Chronic conditions were managed during hospital stay and patient was without any hospital complications. She did have some leukocytosis during her hospital stay however this was monitored and she didnot have any other signs of acute infectious process for this believed to be reactive in nature. Patient otherwise with improved pain today, recovering postoperatively as expected and stable for discharge. See full discharge recommendations, follow-up and discharge medications. Discharge Date: 06/20/23 Referral Source-PACC: (Hospital/Unit): [facility] / [id number] A End PACC Note * Care Coordination - SELINA Magaña - 06/20/2023 11:16 AM EDT TCC updated SW, pt is requesting COT transport back to pt home. Pt had opportunity for pt AL to pick pt up and transport via wheelchair, pt declined. Contacted Cornel Mejiaens, arranged for pt to be picked up via COT today at 3:30 pm and transported to home. Transportation form completed. Met with pt, introduced self and role. Updated pt on discharge time via COT. Pt is in agreement with the mode of transportation, explained SW provided pt insurance to Cornel Flynn and there pay be a separate bill. Pt had no questions for SW. Helped pt order lunch. Notified TONIO, RN and community relations manager. . * Care Coordination - Shikha Gray RN - 06/20/2023 11:01 AM EDT I SPOKE WITH DONOVAN, COLORER MACHINE AT [facility]. THEY CAN TAKE PT BACK TODAY. THEY CAN PROVIDE TRANSPORTATION BACK TO FACILITY AROUND 3 PM. AWARE PT WILL NEED PT AT FACILITY, THEY USE [email or web address], DID LET LIAISON NOW. WENT TO SPEAK WITH PT ABOUT DISCHARGING AT 3, SHE TOLD ME SHECANCELLED THIS, SHE DID NOT WANT TO RIDE IN A WC DUE TO HER ARM. SHE WANTS AMBULANCE BACK, I DID INFORM HER SHE MAY HAVE A BILL FROM THIS, SHE WAS OK WITH THIS. I LET SW KNOW TO SET UP TRANSPORT HOME. RECEIVED CALL BACK FROM DONOVAN, SHE IS NOW ASKING THAT ANY SCRIPTS BE ESCRIBED TO [facility]. SECURE CHAT WITH CONNIE PEREZ REGARDING THIS. * Care Coordination - Shikha Gray RN - 06/19/2023 2:05 PM EDT DAY #1 S/P ORIF OF RIGHT ARM. WAITING FOR PT/OT EVALS FOR DC PLANNING. * Perioperative Nursing Note - Irina Khan RN - 06/18/2023 8:11 PM EDT Pt states no need to contact family. RN on floor states she will call pt's son,. * Brief Op Note - Lexa Aparicio MD - 06/18/2023 3:42 PM EDT Date: 06/16/2023 - 06/18/2023 Location: [facility] OR Name: Ezra Gonzalez, : 1935, Diagnosis Pre-op Diagnosis * Closed displaced fracture of medial condyle of right humerus, initial encounter [S42.188M] Post-op Diagnosis * Closed displaced fracture of medial condyle of right humerus, initial encounter [S42.461A] Procedures OPEN REDUCTION INTERNAL FIXATION RIGHT DISTAL HUMERUS 78512 - AR OPTX HUMERAL SHFT FX W/PLATE/SCREWS W/WOCERCLAGE Surgeons * Benitez Givens - Primary Procedure Summary Anesthesia: * No anesthesia type entered * ASA: III Estimated Blood Loss: Minimal Drains: * None in log * Staff: Drug Abuse Resistance Education Officer: Vivian Herrera RN Scrub Person: Linda Alvarez RN Findings: please see full op note Complications: None; patient tolerated the procedure well. Specimens Collected: No specimens collected during this procedure. Wound Class: Class I: Clean Blood Products: None Prophylactic Antibiotics: Procedure appropriate prophylactic antibiotic(s) given within 1 hour of surgical incision (two hours if receiving Vancomycin or flouroquinolone) -Operative plans: No further plans for surgery -Weight bearing: RLE: WBAT LLE: WBAT RUE: NWB LUE: WBAT -Range of motion parameters: No ROM of elbow, ok for ROM wrist/fingers/shoulder -Immobilization: Splint to RUE. Keep clean, dry, and intact. -Sling prn -Consults: Acute pain service consult for pain control recommendations -Antibiotics: 24 hours of post op antibiotics. -Dressings: Keep dressings on until the follow up office visit. -Other: None -Diet: no restrictions from ortho standpoint -Labs: Check hemoglobin tomorrow -PT/OT -PT recommended outpatient/post discharge?: No formal PT is needed -Medical management, dvt ppx and pain control per primary -DVT ppx recommended?: No DVT ppx is indicated from ortho standpoint -Follow-up with Dr Givens in 2 weeks -Ortho to follow. * Perioperative Nursing Note - Deisy Gonzalez RN - 06/18/2023 3:29 PM EDT Patients wallet and watch locked up with security. OR notified patient states she has latex allergy Patients purse and glasses taken to pacu * Care Coordination - Shikha Gray RN - 06/18/2023 1:03 PM EDT Care Managment Initial Assessment Date: 06/18/2023 Patient Name: Ezra Gonzalez : 1935 Patient Information Source of Information: Patient Cognition/Language: WFL - Within Functional Limits Permission given to speak with patient fulfillment representative/caregiver as indicated: No Confirmation of Payer with patient/family: Yes Payer Name: [facility] [place]: No Confirmation of Primary Care Physician: Confirmed Primary Caregiver: Self If assistance needed, confirmed caregiver ready, willing and able to care for patient at discharge: Confirmed with: Living Arrangements Current Residence: Number of Floors Number of Entry Steps: Bed/Bath Levels: Facility: Assisted [facility] Plan to Return: Yes Lives with: Alone Support Systems: Children Activities of Daily Living Ambulation: Independent Bathing/Dressing: Independent Elimination/Continence/Toileting: Independent Feeding: Independent Who Assists with Activities of Daily Living: Instrumental Activities of Daily Living Prescription Coverage: Yes Pharmacy Used: Medication Management: (AL STAFF) Transportation/Shopping: Assistance Provider Transportation/Shopping Assistance Provider Name: [address] Transportation Mode: Needs Assistance with Transportation at Discharge: Meal Preparation: Assistance Provider Meal Prep Assistance Provider Name: AL STAFF Laundry/Cleaning: Assistance Provider Laundry/Cleaning Assistance Provider Name: AL STAFF Finances/Bill Paying: Independent Communication: Independent Types of Care Services/Equipment Utilized Care Services: (NA) Dialysis Type: NA Durable Medical Equipment: Cane, Rollator Patient's Goal/Discharge Plan Patient expects to be discharged to: [place] Discharge Planning Actions: Continue to follow Patient's Choice Rights and [employer] and Collaborative Relationships Disclosed as Indicated for Post-Acute Care: Interdisciplinary Team Engagement: Social Work Referral for: Additional Information: SPOKE WITH PT, INTRODUCED SELF AND EXPLAINED ROLE. PT HERE WITH RIGHT HUMERUS FX, PLAN FOR ORIF IN SURGERY TODAY. CURRENTLY NPO AND IV FLUIDS. PT/OT EVAL PENDING. ANTICIPATE RETURN TO AL, WILL CONTINUE TO FOLLOW. Shikha Gray RN * Care Plan - Yvan Sepulveda RN - 06/17/2023 11:35 PM EDT The patient is Moderately Stable - Low risk of patient condition declining or worsening The patient's goals for the shift include rest and pain control The clinical goals for the shift include rest and pain control documented in this [facility]03-22-2024 Note* Care Coordination - Unknown Case Management - 06/20/2023 2:58 PM EDT Patient Choice Patient Name: EZRA GONZALEZ Date of : 1935 All Providers Sent Referral Name: [facility] Phone: [phone] Address: [address] [place] [id number] [id number]* Care Coordination - Unknown Case Management - 06/20/2023 2:58 PM EDT Patient Choice Patient Name: EZRA GONZALEZ Date of : 1935 All Providers Sent Referral Name: [facility] Phone: [phone] Address: [address] [place] [id number] [id number] [facility]* Home Care - Vivian Bills RN - 06/20/2023 2:40 PM EDT Start PACC Note Home Health Referral Educated patient on Home Care and services available. Patient offered choice of available HHC and [facility] Care Types: None Isolation Precautions: No active isolations Social Determinates of Health: Tobacco Use: Low Risk (06/18/2023) Patient History Smoking Tobacco Use: Never Smokeless Tobacco Use: Never Passive Exposure: Not on file Social History Substance and Sexual Activity Alcohol Use None Social History Substance and Sexual Activity Drug Use Never Does the patient have any financial resource strain? No Does the patient have any food insecurities? No Does the patient have any housing instabilities? No If any of the above is noted as yes - consider a SAND SCREENER evaluation once the patient returns home. START PATIENT REGISTRATION INFORMATION Order Information Order Signing Physician: Connie Perez APRN * Service Ordered RN ?: No Service Ordered PT ?: Yes Service Ordered OT ?: Yes Service Ordered ST ?: No Service Ordered SAND SCREENER?:No Service Ordered SUPERVISOR ACCOUNTING CLERKS?: No Following Physician: ALEXANDRA HAGEN Following Physician Overseeing Physician: ALEXANDRA HAGEN (Required for Residents only) Agreeable to Follow? No Date/Time of Call 06/20/23 2:40 PM, Spoke with: LVM FOR OFFICE-CONFIRMED WITH JOSEP THIS IS HERPHYSICAN AND CAN SEE RECENT NOTES IN EPIC Care Coordination Same Day SOC?: No Primary Care Physician: ALEXANDRA HAGEN Primary Care Physician Primary Care Physician Address: [address] [place] [address] [address] / [facility] [id number] Visit Instructions: N/A Service Discharge Location Type: Assisted Living Service Facility Name: [facility] Service Floor Facility: N/A Service Room No: 105 Demographics Patient Last Name: Lisa Patient First Name: Ezra Language/Communication Barrier: NONE Service Address: [address] [place] [address] [address] Service City: [facility] ST: [place] Service ZIP: [address] Service (home) Other phone numbers: No relevant phone numbers on file. Emergency Contact: Extended Emergency Contact Information Primary Emergency Contact: Patito [place] Mobile Relation: Son Pulmonary Function Technician needed? No Secondary Emergency Contact: Ty [place] Mobile Relation: Son Admission Information Admit Date: 06/16/2023 Patient status at discharge: Inpatient Admitting Diagnosis: Closed displaced fracture of medial condyle of right humerus, initial encounter [S42.648C] Caregiver Information Caregiver First Name: NA Caregiver Last Name: NA Caregiver Relationship to Patient NA Caregiver Phone Number: NA Caregiver Notes: N/A [employer] List No END PATIENT REGISTRATION INFORMATION Pt Home Health goal To return home and avoid readmission to the hospital by increasing disease process education and preventing falls. COVID Status 1. Do you have any upper respiratory symptoms (cough, SOB, Fever)? No 2. Have you been exposed to anyone with COVID-19 Virus? No Answer only if pending or positive for COVID-19? 1. Agreeable to wear PPE at each visit? No 2. Is the hospital supplying them with PPE upon Discharge? No Start PACC Summary General Report/ Additional Comments Weight bearing: RLE: WBAT LLE: WBAT RUE: NWB LUE: WBAT -Range of motion parameters: No ROM of elbow, ok for ROM wrist/fingers/shoulder BRIEF HOSPITAL COURSE: Ezra is a 87 y.o. 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 Images in Er show right distal humerus fx. she underwent RC3 distal humerus fracture ORIF on 06/18/2023. She recovered postoperatively without complications. Recommendations were to remain nonmobile to right upper extremity, sling as needed, follow-up outpatient with orthopedics. She was evaluated by therapy who recommended return to her assisted living facility with home care services for assistance. Chronic conditions were managed during hospital stay and patient was without any hospital complications. She did have some leukocytosis during her hospital stay however this was monitored and she didnot have any other signs of acute infectious process for this believed to be reactive in nature. Patient otherwise with improved pain today, recovering postoperatively as expected and stable for discharge. See full discharge recommendations, follow-up and discharge medications. Discharge Date: 06/20/23 Referral Source-PACC: (Hospital/Unit): [facility] / [id number] A End PACC Note [id number] [facility]* Home Care - Vivian Bills RN - 06/20/2023 2:40 PM EDT Start PACC Note Home Health Referral Educated patient on Home Care and services available. Patient offered choice of available HHC and agreeable to PT/OT services with [facility]. Care Types: None Isolation Precautions: No active isolations Social Determinates of Health: Tobacco Use: Low Risk (06/18/2023) Patient History Smoking Tobacco Use: Never Smokeless Tobacco Use: Never Passive Exposure: Not on file Social History Substance and Sexual Activity Alcohol Use None Social History Substance and Sexual Activity Drug Use Never Does the patient have any financial resource strain? No Does the patient have any food insecurities? No Does the patient have any housing instabilities? No If any of the above is noted as yes - consider a SAND SCREENER evaluation once the patient returns home. START PATIENT REGISTRATION INFORMATION Order Information Order Signing Physician: Connie Perez APRN * Service Ordered RN ?: No Service Ordered PT ?: Yes Service Ordered OT ?: Yes Service Ordered ST ?: No Service Ordered SAND SCREENER?:No Service Ordered SUPERVISOR ACCOUNTING CLERKS?: No Following Physician: ALEXANDRA HAGEN Following Physician Overseeing Physician: ALEXANDRA HAGEN (Required for Residents only) Agreeable to Follow? No Date/Time of Call 06/20/23 2:40 PM, Spoke with: LVM FOR OFFICE-CONFIRMED WITH JOSEP THIS IS HERPHYSICAN AND CAN SEE RECENT NOTES IN [facility] Care Coordination Same Day SOC?: No Primary Care Physician: ALEXANDRA HAGEN Primary Care Physician Primary Care Physician Address: [address] [place] [address] [address] / [facility] [id number] Visit Instructions: N/A Service Discharge Location Type: Assisted Living Service Facility Name: [facility] Service Floor Facility: N/A Service Room No: 105 Demographics Patient Last Name: Lisa Patient First Name: Ezra Language/Communication Barrier: NONE Service Address: [address] [place] [address] [address] Service City: [facility] ST: [place] Service ZIP: [address] Service (home) Other phone numbers: No relevant phone numbers on file. Emergency Contact: Extended Emergency Contact Information Primary Emergency Contact: MariialubarodriguePatito Mobile Relation: Son Pulmonary Function Technician needed? No Secondary Emergency Contact: BereketTy Mobile Relation: Son Admission Information Admit Date: 06/16/2023 Patient status at discharge: Inpatient Admitting Diagnosis: Closed displaced fracture of medial condyle of right humerus, initial encounter [S47.400N] Caregiver Information Caregiver First Name: NA Caregiver Last Name: NA Caregiver Relationship to Patient NA Caregiver Phone Number: NA Caregiver Notes: N/A [employer] List No END PATIENT REGISTRATION INFORMATION Pt Home Health goal To return home and avoid readmission to the hospital by increasing disease process education and preventing falls. COVID Status 1. Do you have any upper respiratory symptoms (cough, SOB, Fever)? No 2. Have you been exposed to anyone with COVID-19 Virus? No Answer only if pending or positive for COVID-19? 1. Agreeable to wear PPE at each visit? No 2. Is the hospital supplying them with PPE upon Discharge? No Start PACC Summary General Report/ Additional Comments Weight bearing: RLE: WBAT LLE: WBAT RUE: NWB LUE: WBAT -Range of motion parameters: No ROM of elbow, ok for ROM wrist/fingers/shoulder BRIEF HOSPITAL COURSE: Ezra is a 87 y.o. 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 Images in Er show right distal humerus fx. she underwent RC3 distal humerus fracture ORIF on 06/18/2023. She recovered postoperatively without complications. Recommendations were to remain nonmobile to right upper extremity, sling as needed, follow-up outpatient with orthopedics. She was evaluated by therapy who recommended return to her assisted living facility with home care services for assistance. Chronic conditions were managed during hospital stay and patient was without any hospital complications. She did have some leukocytosis during her hospital stay however this was monitored and she didnot have any other signs of acute infectious process for this believed to be reactive in nature. Patient otherwise with improved pain today, recovering postoperatively as expected and stable for discharge. See full discharge recommendations, follow-up and discharge medications. Discharge Date: 06/20/23 Referral Source-PACC: (Hospital/Unit): [facility] / [id number] A End PACC Note [id number] NoteHospitalist Discharge Summary Ezra Gonzalez : 1935 Admit date: 06/16/2023 Discharge date: 06/20/2023 Admitting Physician: Jayshree Cortez MD Primary Care Physician: No primary care provider on file. Visit Status: Inpatient Code Status: Full Code BRIEF HOSPITAL COURSE: Ezra is a 87 y.o. 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 Images in Er show right distal humerus fx. she underwent R C3 distal humerus fracture ORIF on 06/18/2023. She recovered postoperatively without complications. Recommendations were to remain nonmobile to right upper extremity, sling as needed, follow-up outpatient with orthopedics. She was evaluated by therapy who recommended return to her assisted living facility with home care services for assistance. Chronic conditions were managed during hospital stay and patient was without any hospital complications. She did have some leukocytosis during her hospital stay however this was monitored and she did not have any other signs of acute infectious process for this believed to be reactive in nature. Patient otherwise with improved pain today, recovering postoperatively as expected and stable for discharge. See full discharge recommendations, follow-up and discharge medications. Acute, acute on chronic, unstable/uncontrolled chronic problems/discharge diagnoses: Right humerus Fracture S/p right humerus ORIF 06/18/2023 S/p fall Chronic anticoagulation use Leukocytosis-suspect reactive Constipation Stable chronic problems affecting care, new non-acute discharge diagnoses: HTN HPL PAF Obesity DM2 with hyperglycemia History reviewed. No pertinent past medical history. Procedures: CXR, CT elbow, XR right elbow and right shoulder Serial laboratory studies including CHEM profiles and CBC Distal humerus ORIF Consults: IP CONSULT TO CASE MANAGEMENT PHARMACY TO DOSE WARFARIN Discharge Instructions: Diet: Dietary Orders (From admission, onward) Start Ordered 06/18/23 1551 Adult diet Regular Diet effective now Question: Diet type Answer: Regular 06/18/23 1551 Activity: as tolerated Recommended Outpatient Tests: Disposition: Patient discharged in stable condition to Assisted living facility . Greater than 31 minutes spent discharging the patient and coming up with patient discharge plan. Vitals: BP (!) 173/92 Pulse 88 Temp 36.3 ?C (97.4 ?F) (Temporal) Resp 20 Ht 5' 2.99 (1.6 m) Wt 174 lb (78.9 kg) SpO2 95% BMI 30.83 kg/m? Pulse Ox: SpO2 Av.5 % Min: 94 % Max: 95 % Supplemental O2: O2 Flow Rate (L/min): 4 L/min Physical Exam Constitutional: Appearance: Normal appearance. Cardiovascular: Rate and Rhythm: Regular rhythm. Pulses: Normal pulses. Heart sounds: Normal heart sounds. Pulmonary: Effort: Pulmonary effort is normal. Breath sounds: Normal breath sounds. Musculoskeletal: Comments: Right arm in cast, sling and swalth Skin: General: Skin is warm. Findings: No rash. Neurological: Mental Status: She is alert. LABS: Recent Labs 06/18/23 0203 06/19/23 0140 NA 133* 133* K 4.6 4.7 CL 98 102 CO2 25 21* BUN 24* 27* CREATININE 0.83 0.84 GLUCOSE 163* 263* CALCIUM 8.8 8.3* Recent Labs 06/18/23 0203 06/19/23 0140 WBC 15.5* 12.7* RBC 4.96 3.98 HGB 13.9 11.4* HCT 44.1 35.0 MCV 88.9 87.9 MCH 28.0 28.6 MCHC 31.5 32.6 RDW 13.8 13.6 PLT 375 260 MPV 10.1 10.2 Discharge Medications: Medication List START taking these medications acetaminophen 500 MG tablet Commonly known as: Tylenol Take 2 tablets (1,000 mg) by mouth in the morning and 2 tablets (1,000 mg) at noon and 2 tablets (1,000 mg) before bedtime. DSS 100 MG capsule Take 1 capsule (100 mg) by mouth 2 times daily for 10 days. oxyCODONE 5 MG immediate release tablet Commonly known as: Roxicodone Take 1 tablet (5 mg) by mouth every 6 hours as needed for moderate pain (4-6) for up to 5 days. polyethylene glycol (PEG) 3350 17 g packet Commonly known as: Miralax Take 17 g by mouth Daily as needed (constipation). CONTINUE taking these medications ascorbic acid 250 MG tablet Commonly known as: Vitamin C atorvastatin 40 MG tablet Commonly known as: Lipitor donepezil 10 MG tablet Commonly known as: Aricept lamoTRIgine 25 MG tablet Commonly known as: LaMICtal metoprolol tartrate 25 MG tablet Commonly known as: Lopressor multivitamin capsule omeprazole OTC 20 MG EC tablet Commonly known as: PriLOSEC OTC warfarin 2.5 MG tablet Commonly known as: Coumadin Where to Get Your Medications You can get these medications from any pharmacy Bring a paper prescription for each of these medications acetaminophen 500 MG tablet DSS 100 MG capsule oxyCODONE 5 MG immediate release tablet polyethylene glycol (PEG) 3350 17 g packet Recommended Follow-up: Known primary care provider Schedule (more content not included)...[facility]03-22-2024 Note* Care Coordination - SELINA Magaña - 06/20/2023 11:16 AM EDT TCC updated SW, pt is requesting COT transport back to pt home. Pt had opportunity for pt AL to pick pt up and transport via wheelchair, pt declined. Contacted Cornel Flynn, arranged for pt to be picked up via COT today at 3:30 pm and transported to home. Transportation form completed. Met with pt, introduced self and role. Updated pt on discharge time via COT. Pt is in agreement with the mode of transportation, explained SW provided pt insurance to [facility] Flynn and there pay be a separate bill. Pt had no questions for SW. Helped pt order lunch. Notified JAYME ELIZALDE and community relations manager. . [facility] [id number] Note* Care Coordination - SELINA Magaña - 06/20/2023 11:16 AM EDT TCC updated SW, pt is requesting COT transport back to pt home. Pt had opportunity for pt AL to pick pt up and transport via wheelchair, pt declined. Contacted Cornel Flynn, arranged for pt to be picked up via COT today at 3:30 pm and transported to home. Transportation form completed. Met with pt, introduced self and role. Updated pt on discharge time via COT. Pt is in agreement with the mode of transportation, explained SW provided pt insurance to [facility] Flynn and there pay be a separate bill. Pt had no questions for SW. Helped pt order lunch. Notified JAYME ELIZALDE and community relations manager. . [facility] [id number] Note* Care Coordination - Sihkha Gray RN - 06/20/2023 11:01 AM EDT I SPOKE WITH DONOVAN, COLORER MACHINE AT [facility]. THEY CAN TAKE PT BACK TODAY. THEY CAN PROVIDE TRANSPORTATION BACK TO FACILITY AROUND 3 PM. AWARE PT WILL NEED PT AT FACILITY, THEY USE [facility], DID LET HC LIAISON NOW. WENT TO SPEAK WITH PT ABOUT DISCHARGING AT 3, SHE TOLD ME SHECANCELLED THIS, SHE DID NOT WANT TO RIDE IN A WC DUE TO HER ARM. SHE WANTS AMBULANCE BACK, I DID INFORM HER SHE MAY HAVE A BILL FROM THIS, SHE WAS OK WITH THIS. I LET SW KNOW TO SET UP TRANSPORT HOME. RECEIVED CALL BACK FROM DONOVAN, SHE IS NOW ASKING THAT ANY SCRIPTS BE ESCRIBED TO [facility]. SECURE CHAT WITH CONNIE PEREZ REGARDING THIS. [facility] [id number] Note* Care Coordination - Shikha Gray RN - 06/20/2023 11:01 AM EDT I SPOKE WITH DONOVAN, COLORER MACHINE AT [facility]. THEY CAN TAKE PT BACK TODAY. THEY CAN PROVIDE TRANSPORTATION BACK TO FACILITY AROUND 3 PM. AWARE PT WILL NEED PT AT FACILITY, THEY USE [email or web address], DID LET HC LIAISON NOW. WENT TO SPEAK WITH PT ABOUT DISCHARGING AT 3, SHE TOLD ME SHECANCELLED THIS, SHE DID NOT WANT TO RIDE IN A WC DUE TO HER ARM. SHE WANTS AMBULANCE BACK, I DID INFORM HER SHE MAY HAVE A BILL FROM THIS, SHE WAS OK WITH THIS. I LET SW KNOW TO SET UP TRANSPORT HOME. RECEIVED CALL BACK FROM DONOVAN, SHE IS NOW ASKING THAT ANY SCRIPTS BE ESCRIBED TO [facility]. SECURE CHAT WITH CONNIE PEREZ REGARDING THIS. [facility] [id number] Hospital course Narrative* Connie Perez APRN - [facility] - 06/20/2023 10:18 AM EDT Images from the original note were not included. Hospitalist Discharge Summary Ezra Gonzalez : 1935 Admit date: 06/16/2023 Discharge date: 06/20/2023 Admitting Physician: Jayshree Cortez MD Primary Care Physician: No primary care provider on file. Visit Status: Inpatient Code Status: Full Code BRIEF HOSPITAL COURSE: Ezra is a 87 y.o. 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 Images in Er show right distal humerus fx. she underwent RC3 distal humerus fracture ORIF on 06/18/2023. She recovered postoperatively without complications. Recommendations were to remain nonmobile to right upper extremity, sling as needed, follow-up outpatient with orthopedics. She was evaluated by therapy who recommended return to her assisted living facility with home care services for assistance. Chronic conditions were managed during hospital stay and patient was without any hospital complications. She did have some leukocytosis during her hospital stay however this was monitored and she didnot have any other signs of acute infectious process for this believed to be reactive in nature. Patient otherwise with improved pain today, recovering postoperatively as expected and stable for discharge. See full discharge recommendations, follow-up and discharge medications. Acute, acute on chronic, unstable/uncontrolled chronic problems/discharge diagnoses: Right humerus Fracture S/p right humerus ORIF 06/18/2023 S/p fall Chronic anticoagulation use Leukocytosis-suspect reactive Constipation Stable chronic problems affecting care, new non-acute discharge diagnoses: HTN HPL PAF Obesity DM2 with hyperglycemia History reviewed. No pertinent past medical history. Procedures: CXR, CT elbow, XR right elbow and right shoulder Serial laboratory studies including CHEM profiles and CBC Distal humerus ORIF Consults: IP CONSULT TO CASE MANAGEMENT PHARMACY TO DOSE WARFARIN Discharge Instructions: Diet: Dietary Orders (From admission, onward) Start Ordered 06/18/23 1551 Adult diet Regular Diet effective now Question: Diet type Answer: Regular 06/18/23 1551 Activity: as tolerated Recommended Outpatient Tests: Disposition: Patient discharged in stable condition to Assisted living facility . Greater than 31 minutes spent discharging the patient and coming up with patient discharge plan. Vitals: BP (!) 173/92 Pulse 88 Temp 36.3 C (97.4 F) (Temporal) Resp 20 Ht 5' 2.99 (1.6 m) Wt 174 lb (78.9 kg) SpO2 95% BMI 30.83 kg/m Pulse Ox: SpO2 Av.5 % Min: 94 % Max: 95 % Supplemental O2: O2 Flow Rate (L/min): 4 L/min Physical Exam Constitutional: Appearance: Normal appearance. Cardiovascular: Rate and Rhythm: Regular rhythm. Pulses: Normal pulses. Heart sounds: Normal heart sounds. Pulmonary: Effort: Pulmonary effort is normal. Breath sounds: Normal breath sounds. Musculoskeletal: Comments: Right arm in cast, sling and swalth Skin: General: Skin is warm. Findings: No rash. Neurological: Mental Status: She is alert. LABS: Recent Labs 06/18/23 0203 06/19/23 0140 NA 133* 133* K 4.6 4.7 CL 98 102 CO2 25 21* BUN 24* 27* CREATININE 0.83 0.84 GLUCOSE 163* 263* CALCIUM 8.8 8.3* Recent Labs 06/18/23 0203 06/19/23 0140 WBC 15.5* 12.7* RBC 4.96 3.98 HGB 13.9 11.4* HCT 44.1 35.0 MCV 88.9 87.9 MCH 28.0 28.6 MCHC 31.5 32.6 RDW 13.8 13.6 PLT 375 260 MPV 10.1 10.2 Discharge Medications: Medication List START taking these medications acetaminophen 500 MG tablet Commonly known as: Tylenol Take 2 tablets (1,000 mg) by mouth in the morning and 2 tablets (1,000 mg) at noon and 2 tablets (1,000 mg) before bedtime. DSS 100 MG capsule Take 1 capsule (100 mg) by mouth 2 times daily for 10 days. oxyCODONE 5 MG immediate release tablet Commonly known as: Roxicodone Take 1 tablet (5 mg) by mouth every 6 hours as needed for moderate pain (4-6) for up to 5 days. polyethylene glycol (PEG) 3350 17 g packet Commonly known as: Miralax Take 17 g by mouth Daily as needed (constipation). CONTINUE taking these medications ascorbic acid 250 MG tablet Commonly known as: Vitamin C atorvastatin 40 MG tablet Commonly known as: Lipitor donepezil 10 MG tablet Commonly known as: Aricept lamoTRIgine 25 MG tablet Commonly known as: LaMICtal metoprolol tartrate 25 MG tablet Commonly known as: Lopressor multivitamin capsule omeprazole OTC 20 MG EC tablet Commonly known as: PriLOSEC OTC warfarin 2.5 MG tablet Commonly known as: Coumadin Where to Get Your Medications You can get these medications from any pharmacy Bring a paper prescription for each of these medications acetaminophen 500 MG tablet DSS 100 MG capsule oxyCODONE 5 MG immediate release tablet polyethylene glycol (PEG) 3350 17 g packet Recommended Follow-up: Known primary care provider Schedule an appointment as soon as possible for a visit As needed [facility] Go to Appointment scheduled 06/26/23 at 10:[address] Givens. [address] [facility] Complexity of Follow up: [x] Moderate Complexity: follow up within 7-14 calendar days (14599) [] Severe Complexity: follow up within 7 calendar days (54351) Follow up Testing, Pending results or Referrals at Transitional Care Visit: [x] yes [] no Instructions to MA: Please call patient on day after discharge (must document patient contacted within 2 business days of discharge). Follow up questions for MA: 1. Did you get medications filled and taking them as instructed from discharge? 2. Are you following your discharge instructions from your hospital stay? 3. Please confirm patient is scheduled for a follow up appointment within the above time frame. Signed: Connie Perez APRN - [facility] Division of Hospitalist Medicine [facility] 06/20/2023, 1:11 PM documented in this [facility]03-22-2024 NoteDepartment of Orthopedic Surgery Progress Note ASSESSMENT AND PLAN: This is a 87 y.o. female s/p R C3 distal humerus fx ORIF -Operative plans: No further plans for surgery -Weight bearing: RLE: WBAT LLE: WBAT RUE: NWB LUE: WBAT -Range of motion parameters: No ROM of elbow, ok for ROM wrist/fingers/shoulder -Immobilization: Splint to RUE. Keep clean, dry, and intact. -Sling prn -Consults: Acute pain service consult for pain control recommendations -Antibiotics: Post-op -Dressings: Keep dressings on until the follow up office visit. -Other: None -Diet: no restrictions from ortho standpoint -Labs: None -PT/OT -PT recommended outpatient/post discharge?: No formal PT is needed -Medical management, dvt ppx and pain control per primary -DVT ppx recommended?: No DVT ppx is indicated from ortho standpoint -Follow-up with Dr Givens in 2 weeks -Orthopaedic surgery to sign off at this time. Please page resident workers' compensation claims supervisor on Secure Chat with concerns or should further questions arise. Shayne Fonseca MD PGY2 Orthopaedic Surgery 06/20/2023 6:07 AM SUBJECTIVE: Patient sitting in bedside chair reading a book. States that her pain is well controlled and that her block is starting to wear off. Is hopeful to head back home and avoid going to a rehab facility OBJECTIVE: General: A&O x3, in no acute distress, and awake VITALS: BP (!) 186/86 (BP Location: Left arm, Patient Position: Sitting) Pulse 82 Temp 36.3 ?C (97.4 ?F) (Temporal) Resp 20 Ht 1.6 m (5' 2.99) Wt 78.9 kg (174 lb) SpO2 95% BMI 30.83 kg/m? MSK exam: Right Upper Extremity: -Splint: clean/dry/intact -BCR to fingers -Sensation intact in all distributions -Motor function intact to AIN/PIN/[facility]ar[facility] [id number] Note PHYSICAL THERAPY [facility] Initial Evaluation Name/MRN: Ezra Gonzalez ([id number]) Evaluation Date: 06/19/2023 Date of : 1935 Admission Date: 06/16/2023 1:38 PM Age: 87 y.o. Room/Bed: E7707/[facility]707 A Discharge Recommendation: Home with Home health PT (return to [place]) Equipment Needed: No Assessment IMPRESSION: 87 y.o. pt admitted to [facility] for closed fracture RUE, s/p ORIF R humerus 06/17. They were Min A for bed mobility, Min A for transfers, and Min A for ambulation. Pt limited d/t balance. If from [place] where she can receive Min A for all ADLs and mobility. Would recommend return to [place] and [facility] PT at discharge. Diagnosis: closed fracture RUE, s/p ORIF R humerus 06/17 Prognosis: good Performance Deficits /Impairments: Increased Pain, Decreased Functional Mobility, Decreased Strength, Decreased Cognition, and Decreased Balance Decision Making: Medium Complexity Subjective Pt supine in bed. Agreeable to PT session. Cleared by nursing Pain: Pt denies any current pain. Past Medical History: History reviewed. No pertinent past medical history. Past Surgical History: Past Surgical History: Procedure Laterality Date ORIF HUMERUS FRACTURE Right 06/18/2023 Admission Diagnosis: Patient Active Problem List Diagnosis Date Noted Closed displaced fracture of medial condyle of right humerus, initial encounter 06/16/2023 Medical Precautions: No active isolations Proper PPE donned/doffed in accordance with facility standards. Fall Risk: Dennis Fall Risk Score: 70 (High Risk) Precautions/Restrictions: Braces or Orthoses: sling to RUE Right UE Weight Bearing: Non-Weight Bearing Lines/Drains/Airways: PIV Family/Caregiver Present: none Overall Cognitive Status: Exceptions - Safety judgement: decreased awareness of need for safety Overall Orientation Status: Oriented to Place and Oriented to Person Vision: not assessed this session Hearing: normal Social/Functional History From [place]. Able to receive Min A for all ADLs and mobility. Received meals from dining oro in room or can go to room. Pt typically ambulates with FWW Prior Level of Function ADL Assistance: Independent Ambulation Assistance: Independent Transfer Assistance: Independent Objective Lower Extremity Assessment AROM: WFL PROM: Not assessed this session Strength: WFL (grossly 3+/5 overall) Bed Mobility: Supine to sit: Min Assist Sit to supine: Min Assist Trunk elevation and RUE assist Transfers Sit to stand: Min Assist Stand to sit: Min Assist EOB x1, toilet x1, LOB from toilet needing correction Ambulation Ambulation 1 Assistive device(s) used: [employer] Assist level: Min Assist Distance (ft): 15' + 15' Quality of gait: shuffling, narrow DOROTHEA, postural sway Outcome Measures AM-PAC How much HELP from another person do you currently need Turning from your back to your side while in a flat bed without using bedrails?: None Moving from lying on your back to sitting on the side of a flat bed without using bedrails?: None Moving to and from a bed to a chair (including a wheelchair)?: None Standing up from a chair using your arms (wheelchair or bedside chair)?: A Little Walking in a hospital room?: A Little Stair climbing assessed?: No AM-PAC Inpatient Mobility Raw Score (No Stairs) : 18 JH-HLM JH-HLM Score: Walked 25 ft or more (i.e. walked outside of room) Plan Pt would benefit from skilled acute PT services to address Strengthening, Balance Training, Functional Mobility Training, Endurance Training, Gait Training, Stair Training, Safety Education and Training, Patient/Caregiver Training, and Equipment Evaluation/Education. Frequency: 5x/week for 4 weeks Barriers: Pain, Impulsivity, and Limited safety awareness Safety/Education Safety Safety Devices in place: call light within reach, left in bed, patient at risk for falls, and nurse notified Restraints: No Education Education Given To: patient Education Provided: PT Role, PT Goals, Gait Training, Plan of Care, Transfer Training, and Equipment Education Method: Verbal Barriers to Learning: Cognition Education Outcome: Continued Education Needed Goals Patient Stated Goal: to go home Encounter Problems Encounter Problems (Active) Mobility Patient will ambulate 100 feet with modified independence and least restrictive device in order to improve safety and independence with mobility. Start: 06/19/23 Expected End: 07/17/23 Transfers Patient will perform bed mobility with independence in order to improve independence and prepare for out of bed mobility. Start: 06/19/23 Expected End: 07/17/23 Patient will complete functional transfer with least restrictive device with modified independence in order to prepare for ambulation. Start: 06/19/23 Expected End: 07/17/23 Therapy Time Individual Co-treatment Time In 1404 Time Out 1431 Minutes 27 Timed Code Treatment Minutes: (mod eval, 1 FA) Dillon (more content not included)...[facility]03-21-2024 Note* Care Coordination - Shikha Gray RN - 06/19/2023 2:05 PM EDT DAY #1 S/P ORIF OF RIGHT ARM. WAITING FOR PT/OT EVALS FOR DC PLANNING. [facility] [id number] Note* Care Coordination - Shikha Gray RN - 06/19/2023 2:05 PM EDT DAY #1 S/P ORIF OF RIGHT ARM. WAITING FOR PT/OT EVALS FOR DC PLANNING. [facility] [id number] NoteOCCUPATIONAL THERAPY [facility] Initial Evaluation Name/MRN: Ezra Gonzalez ([id number]) Evaluation Date: 06/19/2023 Date of : 1935 Admission Date: 06/16/2023 1:38 PM Age: 87 y.o. Room/Bed: [facility]707/[facility]70 A Discharge Recommendation: Continue to assess pending progress, IP Rehab Other: Continue to assess pending progress. Assessment IMPRESSION: Pt presented with closed displaced fracture of medial epicondyle of R humerus, ORIF s/p on 06/17. Pt stated she could not feel or move arm, block still intact. Pt was educated on RUE NWB status. Pt stated her baseline is independent, currently presents below functional baseline. Pt is limited by NWB precautions as well as diminished balance, strength, and overall independence with ADL's and functional mobility. Pt Mod A LB dressing and toileting, Max A Ub dressing due to NWB RUE, Min A bed mobility and sit to stand as well as Min A for functional ambulation. Recommending IPR to address functional limitations. Recommending OT services while admitted to increase functional outcomes. Performance Deficits /Impairments: Decreased Functional Mobility, Decreased ADL status, Decreased ROM, Decreased Strength, Decreased Endurance, Decreased Sensation, Decreased Balance, and Decreased Coordination Prognosis: Fair Decision Making: Medium Complexity Subjective Pt supine in bed upon OT arrival; agreeable to eval. Pt left EOB at end of session, RN cleared and call light within reach. Pain: Pt denies any current pain. Past Medical History: History reviewed. No pertinent past medical history. Past Surgical History: Past Surgical History: Procedure Laterality Date ORIF HUMERUS FRACTURE Right 06/18/2023 Admission Diagnosis: Patient Active Problem List Diagnosis Date Noted Closed displaced fracture of medial condyle of right humerus, initial encounter 06/16/2023 Medical Precautions: No active isolations Proper PPE donned/doffed in accordance with facility standards. Fall Risk: Dennis Fall Risk Score: 70 (High Risk) Precautions/Restrictions: Right UE Weight Bearing: Non-Weight Bearing Family/Caregiver Present: none Overall Cognitive Status: WFL Overall Orientation Status: Oriented x4 Social/Functional History Patient admitted from SNF. Assistive Equipment: front wheeled walker Prior Level of Function ADL Assistance: Independent Ambulation Assistance: Independent Transfer Assistance: Independent Objective ADLs LE Dressing: Mod Assist, Pt was able to doff bilateral socks at EOB, could not nicholas socks due to limited use of RUE. Toileting: Mod Assist, Pt was able to perform posterior toilet hygiene with Mod A for stability. Pt was able to wash LUE at sink with contact guard for stability, pt compensated by leaning LUE on sink due to fatigue. Upper Extremity Assessment AROM: WNL LUE, pt could not move RUE due to block still intact. Strength: WFL LUE, did not assess RUE Vision: wears glasses at all times and and are being used during the eval Hearing: normal Bed Mobility Supine to sit: Min Assist Sit to supine: Contact Guard Head of bed elevated, instructed pt to use handrail to assist and NWB precuations while performing. Transfers/Functional Mobility Sit to stand: Min Assist Stand to sit: Contact Guard Toilet: Min Assist Standing balance: Min Assist Pt stated she used FWW prior to admission, due to RUE NWB status, used handheld assistance requiring Min A for tranfers and functional mobility. Pt educated on RUE NWB precautions while performing ADL's and functional mobility. During toilet transfer, pt required mod verbal cues to process foot placement prior to sitting on toilet. Device(s) used: none AM-PAC AM-PAC Inpatient Daily Activity Raw Score: 13 ADL Inpatient CMS G-Code Modifier: CL Plan Pt would benefit from skilled acute OT services to address Strengthening, ROM, Balance Training, Functional Mobility Training, Endurance Training, Safety Education and Training, Patient/Caregiver Training, Equipment Evaluation/Education, and Self-Care/ADL Training. Frequency: 2x/week for 4 weeks Barriers: New weightbearing/ROM restrictions, Decreased endurance, Decreased sensation, Upper extremity weakness, and Lower extremity weakness Prognosis: good Safety/Education Safety Safety Devices in place: call light within reach, gait belt, nurse notified, and patient left sitting EOB Restraints: No Education Education Given To: patient Education Provided: OT Role, Plan of Care, Precautions, ADL Adaptive Strategies, Transfer Training, and Fall Prevention Education Education Method: Verbal Barriers to Learning: None Education Outcome: Verbalized Understanding Goals Patient Stated Goal: To be able to use my right arm. Encounter Problems Encounter Problems (Active) Bathing Patient will utilize adaptive techniques to bathe body with supervision. Start: 06/19/23 Expected End: 07/17/23 (more content not included)...[facility]03-21-2024 Note Hospitalist Progress Note 06/19/2023 Subjective: Admit Date: 06/16/2023 PCP: No primary care provider on file. Room#: E7-707/E7-707 A BRIEF HOSPITAL COURSE: Ezra is a 87 y.o. 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 Images in Er show humerus fx. Ortho saw patient in ER and splinted it. Ortho stated patient ok to go home, but patient does not feel safe going back to [place]. Admitted for further evaluation and management. Interval History: No overnight issues. She is post op day #1 from R C3 distal humerus fx ORIF. She reports no pain this morning, no numbness of tingling to RUE. She has not had a BM yet today, small one yesterday. Eating and drinking fair, looking forward to DC. Understands likely not back to AL as she needs further assistance. Case and plan discussed with patient and bedside nurse. All questions answered. Adult diet Regular 24HR INTAKE/OUTPUT: Intake/Output Summary (Last 24 hours) at 06/19/2023 0954 Last data filed at 06/19/2023 0540 Gross per 24 hour Intake 1711 ml Output 600 ml Net 1111 ml Past Medical History: History reviewed. No pertinent past medical history. LABS: CBC: Recent Labs 06/16/23 1409 06/18/23 0203 06/19/23 0140 WBC 16.2* 15.5* 12.7* RBC 4.40 4.96 3.98 HGB 12.8 13.9 11.4* HCT 38.9 44.1 35.0 MCV 88.4 88.9 87.9 RDW 13.6 13.8 13.6 PLT 357 375 260 BMP: Recent Labs 06/16/23 1409 06/18/23 0203 06/19/23 0140 NA 136 133* 133* K 4.5 4.6 4.7 CL 99 98 102 CO2 29 25 21* BUN 26* 24* 27* CREATININE 0.79 0.83 0.84 GLUCOSE 186* 163* 263* CALCIUM 8.6 8.8 8.3* ANIONGAP 7 10 11 LIVER PROFILE:No results for input(s): AST, ALT, BILITOT, ALKPHOS, PROT in the last 72 hours. No lab exists for component: LABALBU PT/INR: Recent Labs 06/16/23 1409 06/17/23 0604 PROTIME 22.3* 14.5* INR 2.2* 1.4* CARDIAC ENZYMES: No results for input(s): TROPONINI in the last 72 hours. Procalcitonin: Lab Results Component Value Date PROCAL 0.06 06/18/2023 COVID-19 PCR: No results for input(s): COVID19 in the last 72 hours. Objective: Vitals: BP (!) 161/83 (BP Location: Left arm, Patient Position: Sitting) Pulse 85 Temp 36.3 ?C (97.4 ?F) (Temporal) Resp 16 Ht 5' 2.99 (1.6 m) Wt 174 lb (78.9 kg) SpO2 95% BMI 30.83 kg/m? Pulse Ox: SpO2 Av.3 % Min: 93 % Max: 99 % Supplemental O2: O2 Flow Rate (L/min): 4 L/min Physical Exam Constitutional: Appearance: Normal appearance. Cardiovascular: Rate and Rhythm: Regular rhythm. Pulses: Normal pulses. Heart sounds: Normal heart sounds. Pulmonary: Effort: Pulmonary effort is normal. Breath sounds: Normal breath sounds. Musculoskeletal: Comments: Right arm in cast, sling and swalth Skin: General: Skin is warm. Findings: No rash. Neurological: Mental Status: She is alert. Medications: Scheduled PRN atorvastatin, 40 mg, Oral, Nightly docusate sodium, 100 mg, Oral, BID donepezil, 10 mg, Oral, Nightly insulin lispro, 0-6 Units, SubCUTAneous, TID WC And insulin lispro, 0-6 Units, SubCUTAneous, Nightly lamoTRIgine, 50 mg, Oral, BID metoprolol tartrate, 25 mg, Oral, BID pantoprazole, 40 mg, Oral, qAM AC PRN medications: acetaminophen OR acetaminophen, dextrose, dextrose, glucagon (rDNA), glucose, HYDROmorphone, naloxone, ondansetron ODT OR ondansetron, oxyCODONE OR oxyCODONE, polyethylene glycol (PEG) 3350 Continuous sodium chloride, 100 mL/hr, Last Rate: Stopped (06/18/23 1435) Assessment Data: (CAT1) Reviewed 2 labs/studies ordered by another provider not previously counted (each=1, panels count as 1). (CAT1) Ordered 2 new labs and/or studies (each=1, panels count as 1). (LOW: 2x CAT1 or independent historian MOD: 3x CAT1 or 1x CAT3 EXTENSIVE: 3x CAT1 and 1x CAT3) Acute, acute on chronic, unstable/uncontrolled chronic problems/diagnoses: Right humerus Fracture S/p right humerus ORIF 06/18/2023 S/p fall Chronic anticoagulation use Leukocytosis-VS stable, no indication of infectious process this far Constipation Stable chronic problems affecting care, new non-acute diagnoses: HTN HPL PAF Obesity DM2 with hyperglycemia Plan As a result of the above findings & factors, the following mgmt was pursued: -medical admit, ortho following -multimodal pain control -NWB RUE -Bowel regimen, diet as tolerated, supportive measures -restart Coumadin today, cleared with ortho, consult to pharmacy to dose - am labs, replace lytes prn - PT/OT/CM/SW - delirium precautions: increase activity and limit nighttime disturbances - DVT prophylaxis: SCDs and encourage ambulation Complexity: Acute, complicated injury (MOD). Risk: Prescription drug/IVF/colloid was initiated, discontinued, adjusted; or reviewed with decision to maintain current orders (MOD). Advance Directive: Full Code Anticipated Dischar (more content not included)...[facility] 06-19-2023 NoteDepartment of Orthopedic Surgery Progress Note ASSESSMENT AND PLAN: This is a 87 y.o. female s/p R C3 distal humerus fx ORIF -Operative plans: No further plans for surgery -Weight bearing: RLE: WBAT LLE: WBAT RUE: NWB LUE: WBAT -Range of motion parameters: No ROM of elbow, ok for ROM wrist/fingers/shoulder -Immobilization: Splint to RUE. Keep clean, dry, and intact. -Sling prn -Consults: Acute pain service consult for pain control recommendations -Antibiotics: 24 hours of post op antibiotics. -Dressings: Keep dressings on until the follow up office visit. -Other: None -Diet: no restrictions from ortho standpoint -Labs: Check hemoglobin tomorrow, Hgb 11.4 -PT/OT -PT recommended outpatient/post discharge?: No formal PT is needed -Medical management, dvt ppx and pain control per primary -DVT ppx recommended?: No DVT ppx is indicated from ortho standpoint -Follow-up with Dr Givens in 2 weeks -Ortho to follow. SUBJECTIVE: Block still intact. Had difficulty sleeping overnight. Denies new numbness and tingling. Pain well-controlled. OBJECTIVE: General: A&O x3, in no acute distress, and awake VITALS: BP (!) 161/83 (BP Location: Left arm, Patient Position: Sitting) Pulse 85 Temp 36.3 ?C (97.4 ?F) (Temporal) Resp 16 Ht 1.6 m (5' 2.99) Wt 78.9 kg (174 lb) SpO2 95% BMI 30.83 kg/m? MSK exam: Right Upper Extremity: -Splint: clean/dry/intact -BCR to fingers -Sensation and motor exam limited 2/2 block [facility] 06-18-2023 NotePatient: Ezra Gonzalez Procedure Summary Date: 06/18/23 Room / Location: [address] Operating Room Anesthesia Start: 1541 Anesthesia Stop: 1915 Procedure: OPEN REDUCTION INTERNAL FIXATION RIGHT DISTAL HUMERUS (Right: Arm Upper) Diagnosis: Closed displaced fracture of medial condyle of right humerus, initial encounter (Closed displaced fracture of medial condyle of right humerus, initial encounter [S42.461A]) Surgeons: Benitez Givens MD Responsible Provider: Shayne Quesada MD Anesthesia Type: general, regional ASA Status: 3 Anesthesia Type: general, regional Vitals Value Taken Time BP 116/67 06/18/231912 Temp 97.3 06/18/231920 Pulse 83 06/18/231919 Resp 18 06/18/231920 SpO2 89 % 06/18/231919 Vitals shown include unfiled device data. Anesthesia Post Evaluation Patient location during evaluation: PACU Patient participation: complete - patient participated Level of consciousness: awake and alert Pain management: satisfactory to patient Airway patency: patent Dental Injury: no Cardiovascular status: acceptable, blood pressure returned to baseline and hemodynamically stable Respiratory status: acceptable and spontaneous ventilation Hydration status: euvolemic Nausea/Vomiting: controlled No notable events documented. Patient can be discharged once all PACU criteria has been met.[facility] [id number] NotePatient: Ezra Gonzalez Procedure Summary Date: 06/18/23 Room / Location: [address] Operating Room Anesthesia Start: 1541 Anesthesia Stop: 1915 Procedure: OPEN REDUCTION INTERNAL FIXATION RIGHT DISTAL HUMERUS (Right: Arm Upper) Diagnosis: Closed displaced fracture of medial condyle of right humerus, initial encounter (Closed displaced fracture of medial condyle of right humerus, initial encounter [S42.461A]) Surgeons: Benitez Givens MD Responsible Provider: Shayne Quesada MD Anesthesia Type: general, regional ASA Status: 3 Anesthesia Type: general, regional Vitals Value Taken Time BP 116/67 06/18/231912 Temp 97.3 06/18/231920 Pulse 79 06/18/231918 Resp 18 06/18/231920 SpO2 86 % 06/18/231918 Vitals shown include unfiled device data. Anesthesia Post Evaluation Patient location during evaluation: PACU Patient participation: complete - patient participated Level of consciousness: awake and alert Pain management: satisfactory to patient Multimodal analgesia pain management approach Airway patency: patent Two or more strategies used to mitigate risk of obstructive sleep apnea Cardiovascular status: acceptable and hemodynamically stable Respiratory status: acceptable Hydration status: acceptable No notable events documented. MIPS #430 PONV Patient received an inhalational anesthetic (4554F) Patient exhibits three or more risk factors for PONV (4556F) Patient received at aset 2 prophylactic Rx PONV anti-emtic agents of different classes preop and/or intraop (G9775) MIPS # 424 Perioperative Temperature Management Anesthesia time was 60 minutes or longer (4255F) Anesthesai administered was General (inhalational or TIVA) or Neuraxial block (X0424) At least one body temperature greater than 95.8F/35.5C achieved within the 30 mins immediately prior to or the 15 minutes immediately following anesthesia end time (G9771) MIPS #477 Multimodal Pain Management Not emergent case Patient was administered multimodal pain management (two or more drugs and/or interventions excluding systemic opioids) in the periopeartive period occurring at some time between 6 hours prior to anesthesia start time until discharged from PACU (G2148) [facility] #404 Anesthesiology Smoking Abstinence The patient is not a current smoker (e.g. cigarette, cigar, pipe, e-cigarette/vaping/marijuana) If no stop here (XX404) I completed my handoff to the receiving clinician during which we: 1. Identified the patient 2. Identified the responsible provider 3. Reviewed the pertinent medical history 4. Discussed the surgical course 5. Reviewed intra-op anesthesia management and issues during anesthesia 6. Set expectations for post-procedure period 7. Allowed opportunity for questions and acknowledgement of understanding.[facility]03-20-2024 Note* Perioperative Nursing Note - Irina Khan RN - 06/18/2023 8:11 PM EDT Pt states no need to contact family. RN on floor states she will call pt's son,. [id number]* Perioperative Nursing Note - Irina Khan RN - 06/18/2023 8:11 PM EDT Pt states no need to contact family. RN on floor states she will call pt's son,. [facility]pt[facility]f26-15-1745 NoteAirway Date/Time: 06/18/2023 3:56 PM Urgency: scheduled General Information and Staff Patient location during procedure: Procedural Resident/DESKTOP SUPPORT ENGINEER: Sae Lora CRNA Performed: DESKTOP SUPPORT ENGINEER Indications and Patient Condition Indications for airway management: anesthesia Sedation level: Asleep Preoxygenated: yes Patient position: sniffing MILS maintained throughout Mask difficulty assessment: 1 - vent by mask Final Airway Details Final airway type: endotracheal airway Successful airway: ETT Cuffed: yes Successful intubation technique: direct laryngoscopy Facilitating devices/methods: intubating stylet Endotracheal tube insertion site: oral Blade: [place] Blade size: #3 ETT size (mm): 7.0 Cormack-Lehane Classification: grade I - full view of glottis Placement verified by: chest auscultation and capnometry Measured from: lips ETT to lips (cm): 21 Number of attempts at approach: [address] [place], [place] [id number] Note Peripheral IV Date/Time: 06/18/2023 4:00 PM Inserted by: JANNETTE Ivey CRNA Placement Needle size: 20 G Laterality: left Location: upper arm. Local anesthetic: none Site prep: alcohol Technique: ultrasound guided Attempts: [address] [place], [place] [id number] NotePeripheral Block Time Out: 06/18/2023 3:28 PM Patient location during procedure: Procedural Start time: 06/18/2023 3:28 PM End time: 06/18/2023 3:32 PM Reason for block: at surgeon's request and post-op pain management Staffing Performed: DESKTOP SUPPORT ENGINEER Resident/DESKTOP SUPPORT ENGINEER: JANNETTE Ivey CRNA Preanesthetic Checklist Completed: patient identified, IV checked, site marked, risks and benefits discussed, surgical consent and timeout performed Region: Upper Extremities Primary: Supraclavicular Peripheral Block Patient position: supine Prep: ChloraPrep Patient monitoring: continuous pulse ox and heart rate O2: Nasal cannula Laterality: right Injection technique: single-shot Guidance: ultrasound guided -image retained in chart, tip of the needle identified by ultraound during injection. Local infiltration: lidocaine 2% Dose: 5 mL Needle Needle: 22G X 80 mm Additional Notes Patient Position - Supine w/head elevated Nerve stimulating, Minimum current when twitches disappeared at 0.3mA Post Procedure - Patient tolerated procedure well. No complications noted06/18/2023 3:28 PM Assessment Injection assessment: negative aspiration for heme, no paresthesia on injection, incremental injection, local visualized surrounding nerve on ultrasound and transient paresthesias Paresthesia pain: none Heart rate change: no Slow fractionated injection: yes Required Documentation: Relevant anatomy identified (Nerves, Vessels, Muscles), Negative for blood on aspiration, Local anesthetic injected incrementally with intermittent aspiration every 5 mL, Normal resistance with injection, Local anesthetic spread visualized around nerves or plane., No EKG changes noted, No symptoms of toxicity and No paresthesias reported by patient during injectionMedications sztDGBECxbbvi-iqlkgkgxufr-knokavjaxon (TAP) syringe - Injection 30 mL - 06/18/2023 3:28:00 [facility]03-20-2024 NotePatient: Ezra Gonzalez Procedure Information Date/Time: 06/18/23 1530 Procedure: OPEN REDUCTION INTERNAL FIXATION RIGHT DISTAL HUMERUS (Right: Arm Upper) - requesting 330, if can't go at 330 will consider friday Location: [facility] Operating Room Surgeons: Benitez Givens MD Relevant Problems No relevant active problems Past Medical History: No past medical history on file. Past Surgical History: No past surgical history on file. Social History: TOBACCO: reports that she has never smoked. She has never used smokeless tobacco. ETOH: has no history on file for alcohol use. Social History Substance and Sexual Activity Drug Use Never Family History: No family history on file. Screening: Postmenopausal Clinical information reviewed: Tobacco Allergies Meds Med Hx Surg Hx OB Status Fam Hx Soc Hx Physical Exam Airway Mallampati: III TM distance: <3 FB Neck ROM: full Mouth Open: normal Cardiovascular - normal exam Comments: Hx Afib, CAD, PVD, HTN, HLD, Hx radiofrequency ablation Dental (+) Poor, chipped Pulmonary - normal exam (+) rhonchi Comments: Hx reactive airway disease Abdominal - normal exam (+) obese Comments: DM Anesthesia Plan patient is NPO appropriate Any family history or previous problems with anesthesia no ASA 3 general and regional Any family history or previous problems with anesthesia no The patient is not a current smoker. Anesthetic plan and risks discussed with patient. Use of blood products discussed with who consented to blood products. KATHERINE Screening Labs: Lab Results Component Value Date WBC 15.5 (H) 06/18/2023 HGB 13.9 06/18/2023 HCT 44.1 06/18/2023 MCV 88.9 06/18/2023 PLT 375 06/18/2023 Lab Results Component Value Date NA 133 (L) 06/18/2023 K 4.6 06/18/2023 CL 98 06/18/2023 CO2 25 06/18/2023 BUN 24 (H) 06/18/2023 CREATININE 0.83 06/18/2023 GLUCOSE 163 (H) 06/18/2023 CALCIUM 8.8 06/18/2023 EGFR 68.3 06/18/2023 Pain Score: 0 - No pain No echocardiogram results found for the past 14 days 06/16/23 ECG 12-LEAD 06/17/2023 6:39 AM (Final) Impression Atrial fibrillation Probable left ventricular hypertrophy No previous ECG for comparison Electronically Signed On 06-17-2023 06:39:12 EDT by Thong Francois Signed by: Thong Francois DO on 06/17/2023 6:39 [facility] 06-18-2023 Hospital Discharge instructions* Discharge Instructions* Evette Viera MD - 06/18/2023 3:48 PM EDT Images from the original note were not included. General Orthopedic Discharge Instructions The following instructions have been prepared to help you when you leave the hospital. These guidelines are for the post-surgery period. Activity: Ease into normal activity as tolerated. Weightbearing status: non weight bearing right upper extremity Keep splint clean, dry, and intact to right arm Medications: see medication instructions. Please be sure to read and understand the information provided by your pharmacy. Ask your Pharmacist if any questions. Wound Care and Hygiene: -Wash hands before touching or changing dressings -Do Not touch incision -Keep splint on until your follow-up appointment. Do not remove this. Call Your Doctor for: -Excessive bleeding/swelling of incision -Fever with temperature above 101 F Anesthesia Precautions: -Do Not operate any vehicle (automobile, bicycle, motorcycle) or power tools for 24 hours -Do Not drink alcoholic beverages for 24 hours -As precaution to prevent post-operative nausea and vomiting, start your diet with liquids, then progress to light foods. If tolerated, resume normal diet. Additional Instructions: Contact your surgeon's office (Dr. Givens) to set up an appointment in 2 weeks, or if you have any problems or questions. * Discharge Instr - MITCHEL* Vivian Bills RN - 06/20/2023 10:26 AM EDT Continuity of Care Form Patient Name: Ezra Gonzalez : 1935 Admit date: 06/16/2023 Discharge date: Code Status Order: Full Code Advance Directives: N Admitting Physician: Jayshree Cortez MD PCP: No primary care provider on file. Discharging Nurse: Discharging Hospital Unit/Room#: E7-707/E7-707 A Discharging Unit Phone Number: Emergency Contact: Extended Emergency Contact Information Primary Emergency Contact: Patito Cuba Mobile Relation: Son Pulmonary Function Technician needed? No Secondary Emergency Contact: Ty [place] Mobile Relation: Son Past Surgical History: Past Surgical History: Procedure Laterality Date ORIF HUMERUS FRACTURE Right 06/18/2023 Immunization History: Immunization History Administered Date(s) Administered COVID-19, mRNA, LNP-S, PF, vi-sucrose, 30 mcg/0.3 mL 01/14/2023 Moderna SARS-CoV-2 Vaccination 05/05/2020, 06/02/2020, 04/23/2021 Active Problems: Medical Problems Problem List * (Principal) Closed displaced fracture of medial condyle of right humerus, initial encounter Isolation/Infection: No active isolations No active infections Nurse Assessment: Last Vital Signs: BP (!) 186/86 (BP Location: Left arm, Patient Position: Sitting) Pulse 82 Temp 36.3 C (97.4 F) (Temporal) Resp 20 Ht 5' 2.99 (1.6 m) Wt 174 lb (78.9 kg) SpO2 95% BMI 30.83 kg/m Last documented pain score (0-10 scale): Last Weight: Wt Readings from Last 1 Encounters: 06/17/23 174 lb (78.9 kg) Mental Status: {MITCHEL Patient Mental Status:95348} IV Access: {MITCHEL IV Access:09031} Nursing Mobility/ADLs: Walking {MALLY ADL:::Independent} Transfer {MALLY ADL:::Independent} Bathing {MALLY ADL:::Independent} Dressing {MALLY ADL:65175::Independent} Toileting {MALLY ADL:::Independent} Feeding {MALLY ADL:::Independent} Track Subway Repair Supervisor {MALLY ADL:56333::Independent} Med Delivery {yes/no:56346} Wound Care Documentation and Therapy: Wound/Incision 06/18/23 Incision Arm Anterior;Right;Upper (Active) Site Assessment Clean;Dry 06/19/232147 Treatments Sling 06/19/232147 Primary Dressing Xeroform 06/19/23 1024 Dressing Status Clean, dry & intact 06/19/23 2148 Number of days: 1 Elimination: Continence: Bowel: {yes/no:93099} Bladder: {yes/no:22943} Urinary Catheter: {MITCHEL Urinary Catheter:91347} Colostomy/Ileostomy/Ileal Conduit: {YES / NO:} Date of Last BM: No intake or output data in the 24 hours ending 06/20/23 1025 I/O last 3 completed shifts: In: 711 (9 mL/kg) [P.O.:280; I.V.:114 (1.4 mL/kg); IV Piggyback:317] Out: 600 (7.6 mL/kg) [Urine:350 (0.1 mL/kg/hr); Blood:250] Weight: 78.9 kg Safety Concerns: {MITCHEL Safety Concerns:36088} Impairments/Disabilities: {MITCHEL Impairments/Disabilities:97968} Nutrition Therapy: Current Nutrition Therapy: {MITCHEL Diet List:62239} Routes of Feeding: {routes of feedin} Liquids: {liquid consistency:61319} Daily Fluid Restriction: {daily fluid restriction:95590} Last Modified Barium Swallow with Video (Video Swallowing Test): {done not done:45403} Treatments at the Time of Hospital Discharge: Respiratory Treatments: Oxygen Therapy: {Therapy; copd oxygen:39927} Ventilator: {MITCHEL Ventilator:88612} Rehab Therapies: {GEN THERAPY DISCIPLINE SCAL:4259392} Weight Bearing Status/Restrictions: {POD WEIGHT BEARIN} Other Medical Equipment (for information only, NOT a DME order): {Assistive Devices DME:32778} Other Treatments: Patient's personal belongings (please select all that are sent with patient): {MITCHEL Patient Belongings:55387} RN SIGNATURE: {E-signature:85833} CASE MANAGEMENT/SOCIAL WORK SECTION Inpatient Status Date: 06/16/23 Readmission Risk Assessment Score: @READMISSIONRISKDETAILS@ Discharging to Facility/ Agency Discharging to Facility/ Agency Name: [facility] Address: [address] [place] [id number] Name: BRUCE MCARTHUR Address:[facility] [place] [address] ~28.4 mi Fax: Dialysis Facility (if applicable) Name: Address: Dialysis Schedule: Phone: Fax: Voicer/Ginner signature: ICIAN SECTION Prognosis: good Condition at Discharge: stable Rehab Potential (if transferring to Rehab): good Recommended Labs or Other Treatments After Discharge: INR monitoring Physician Certification: I certify the above information and transfer of Ezra Gonzalez is necessary for the continuing treatment of the diagnosis listed and that she requires home care for greater than 30 days. Update Admission H&P: No change in H&P PHYSICIAN SIGNATURE: documented in this [facility]03-20-2024 Note* Brief Op Note - Lexa Aparicio MD - 06/18/2023 3:42 PM EDT Date: 06/16/2023 - 06/18/2023 Location: [facility] OR Name: Ezra Gonzalez, : 1935, Diagnosis Pre-op Diagnosis * Closed displaced fracture of medial condyle of right humerus, initial encounter [S42.461A] Post-op Diagnosis * Closed displaced fracture of medial condyle of right humerus, initial encounter [S42.461A] Procedures OPEN REDUCTION INTERNAL FIXATION RIGHT DISTAL HUMERUS 19508 - AR OPTX HUMERAL SHFT FX W/PLATE/SCREWS W/WOCERCLAGE Surgeons * Benitez Givens - Primary Procedure Summary Anesthesia: * No anesthesia type entered * ASA: III Estimated Blood Loss: Minimal Drains: * None in log * Staff: Drug Abuse Resistance Education Officer: Vivian Herrera RN Scrub Person: Linda Alvarez RN Findings: please see full op note Complications: None; patient tolerated the procedure well. Specimens Collected: No specimens collected during this procedure. Wound Class: Class I: Clean Blood Products: None Prophylactic Antibiotics: Procedure appropriate prophylactic antibiotic(s) given within 1 hour of surgical incision (two hours if receiving Vancomycin or flouroquinolone) -Operative plans: No further plans for surgery -Weight bearing: RLE: WBAT LLE: WBAT RUE: NWB LUE: WBAT -Range of motion parameters: No ROM of elbow, ok for ROM wrist/fingers/shoulder -Immobilization: Splint to RUE. Keep clean, dry, and intact. -Sling prn -Consults: Acute pain service consult for pain control recommendations -Antibiotics: 24 hours of post op antibiotics. -Dressings: Keep dressings on until the follow up office visit. -Other: None -Diet: no restrictions from ortho standpoint -Labs: Check hemoglobin tomorrow -PT/OT -PT recommended outpatient/post discharge?: No formal PT is needed -Medical management, dvt ppx and pain control per primary -DVT ppx recommended?: No DVT ppx is indicated from ortho standpoint -Follow-up with Dr Givens in 2 weeks -Ortho to follow. [employer] Work Phone: 1(379) 577-935303-20-2024 Note* Brief Op Note - Lexa Aparicio MD - 06/18/2023 3:42 PM EDT Date: 06/16/2023 - 06/18/2023 Location: [facility] OR Name: Ezra Gonzalez, : 1935, Diagnosis Pre-op Diagnosis * Closed displaced fracture of medial condyle of right humerus, initial encounter [S42.222H] Post-op Diagnosis * Closed displaced fracture of medial condyle of right humerus, initial encounter [S42.384H] Procedures OPEN REDUCTION INTERNAL FIXATION RIGHT DISTAL HUMERUS 28421 - AR OPTX HUMERAL SHFT FX W/PLATE/SCREWS W/WOCERCLAGE Surgeons * Benitez Givens - Primary Procedure Summary Anesthesia: * No anesthesia type entered * ASA: III Estimated Blood Loss: Minimal Drains: * None in log * Staff: Drug Abuse Resistance Education Officer: Vivian Herrera RN Scrub Person: Linad Alvarez RN Findings: please see full op note Complications: None; patient tolerated the procedure well. Specimens Collected: No specimens collected during this procedure. Wound Class: Class I: Clean Blood Products: None Prophylactic Antibiotics: Procedure appropriate prophylactic antibiotic(s) given within 1 hour of surgical incision (two hours if receiving Vancomycin or flouroquinolone) -Operative plans: No further plans for surgery -Weight bearing: RLE: WBAT LLE: WBAT RUE: NWB LUE: WBAT -Range of motion parameters: No ROM of elbow, ok for ROM wrist/fingers/shoulder -Immobilization: Splint to RUE. Keep clean, dry, and intact. -Sling prn -Consults: Acute pain service consult for pain control recommendations -Antibiotics: 24 hours of post op antibiotics. -Dressings: Keep dressings on until the follow up office visit. -Other: None -Diet: no restrictions from ortho standpoint -Labs: Check hemoglobin tomorrow -PT/OT -PT recommended outpatient/post discharge?: No formal PT is needed -Medical management, dvt ppx and pain control per primary -DVT ppx recommended?: No DVT ppx is indicated from ortho standpoint -Follow-up with Dr Givens in 2 weeks -Ortho to follow. [employer] Work Phone: 1(446) 530-702203-20-2024 Note* Perioperative Nursing Note - Deisy Gonzalez RN - 06/18/2023 3:29 PM EDT Patients wallet and watch locked up with security. OR notified patient states she has latex allergy Patients purse and glasses taken to pacu [facility]mp06-66-7121 Note* Perioperative Nursing Note - Deisy Gonzalez RN - 06/18/2023 3:29 PM EDT Patients wallet and watch locked up with security. OR notified patient states she has latex allergy Patients purse and glasses [facility] pacu [id number]* Care Coordination - Shikha Gray RN - 06/18/2023 1:03 PM EDT Care Managment Initial Assessment Date: 06/18/2023 Patient Name: Ezra Gonzalez : 1935 Patient Information Source of Information: Patient Cognition/Language: WFL - Within Functional Limits Permission given to speak with patient fulfillment representative/caregiver as indicated: No Confirmation of Payer with patient/family: Yes Payer Name: [facility] [place]: No Confirmation of Primary Care Physician: Confirmed Primary Caregiver: Self If assistance needed, confirmed caregiver ready, willing and able to care for patient at discharge: Confirmed with: Living Arrangements Current Residence: Number of Floors Number of Entry Steps: Bed/Bath Levels: Facility: Assisted [facility] Plan to Return: Yes Lives with: Alone Support Systems: Children Activities of Daily Living Ambulation: Independent Bathing/Dressing: Independent Elimination/Continence/Toileting: Independent Feeding: Independent Who Assists with Activities of Daily Living: Instrumental Activities of Daily Living Prescription Coverage: Yes Pharmacy Used: Medication Management: (AL STAFF) Transportation/Shopping: Assistance Provider Transportation/Shopping Assistance Provider Name: REEL [employer] Transportation Mode: Needs Assistance with Transportation at Discharge: Meal Preparation: Assistance Provider Meal Prep Assistance Provider Name: AL STAFF Laundry/Cleaning: Assistance Provider Laundry/Cleaning Assistance Provider Name: AL STAFF Finances/Bill Paying: Independent Communication: Independent Types of Care Services/Equipment Utilized Care Services: (NA) Dialysis Type: NA Durable Medical Equipment: Cane, Rollator Patient's Goal/Discharge Plan Patient expects to be discharged to: [place] Discharge Planning Actions: Continue to follow Patient's Choice Rights and [employer] and Collaborative Relationships Disclosed as Indicated for Post-Acute Care: Interdisciplinary Team Engagement: Social Work Referral for: Additional Information: SPOKE WITH PT, INTRODUCED SELF AND EXPLAINED ROLE. PT HERE WITH RIGHT HUMERUS FX, PLAN FOR ORIF IN SURGERY TODAY. CURRENTLY NPO AND IV FLUIDS. PT/OT EVAL PENDING. ANTICIPATE RETURN TO [place], WILL CONTINUE TO FOLLOW. Shikha Gray RN [facility] [id number] Note* Care Coordination - Shikha Gray RN - 06/18/2023 1:03 PM EDT Care Managment Initial Assessment Date: 06/18/2023 Patient Name: Ezra Gonzalez : 1935 Patient Information Source of Information: Patient Cognition/Language: WFL - Within Functional Limits Permission given to speak with patient fulfillment representative/caregiver as indicated: No Confirmation of Payer with patient/family: Yes Payer Name: [facility] : No Confirmation of Primary Care Physician: Confirmed Primary Caregiver: Self If assistance needed, confirmed caregiver ready, willing and able to care for patient at discharge: Confirmed with: Living Arrangements Current Residence: Number of Floors Number of Entry Steps: Bed/Bath Levels: Facility: Assisted [facility] Name: [facility] Plan to Return: Yes Lives with: Alone Support Systems: Children Activities of Daily Living Ambulation: Independent Bathing/Dressing: Independent Elimination/Continence/Toileting: Independent Feeding: Independent Who Assists with Activities of Daily Living: Instrumental Activities of Daily Living Prescription Coverage: Yes Pharmacy Used: Medication Management: ([place] STAFF) Transportation/Shopping: Assistance Provider Transportation/Shopping Assistance Provider Name: [address] Transportation Mode: Needs Assistance with Transportation at Discharge: Meal Preparation: Assistance Provider Meal Prep Assistance Provider Name: [place] STAFF Laundry/Cleaning: Assistance Provider Laundry/Cleaning Assistance Provider Name: [place] STAFF Finances/Bill Paying: Independent Communication: Independent Types of Care Services/Equipment Utilized Care Services: (NA) Dialysis Type: NA Durable Medical Equipment: Cane, Rollator Patient's Goal/Discharge Plan Patient expects to be discharged to: [place] Discharge Planning Actions: Continue to follow Patient's Choice Rights and [employer] and Collaborative Relationships Disclosed as Indicated for Post-Acute Care: Interdisciplinary Team Engagement: Social Work Referral for: Additional Information: SPOKE WITH PT, INTRODUCED SELF AND EXPLAINED ROLE. PT HERE WITH RIGHT HUMERUS FX, PLAN FOR ORIF IN SURGERY TODAY. CURRENTLY NPO AND IV FLUIDS. PT/OT EVAL PENDING. ANTICIPATE RETURN TO [place], WILL CONTINUE TO FOLLOW. Shikha Gray RN [facility] [id number] NoteHospitalist Progress Note 06/18/2023 Subjective: Admit Date: 06/16/2023 PCP: No primary care provider on file. Room#: C8-897/T5-024 A BRIEF HOSPITAL COURSE: Ezra is a 87 y.o. 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 Images in Er show humerus fx. Ortho saw patient in ER and splinted it. Ortho stated patient ok to go home, but patient does not feel safe going back to [place]. Admitted for further evaluation and management. Interval History: No overnight issues. Did not have surgery yesterday due to other extended OR cases, plan for today. Reports pain better controlled today. Case and plan discussed with patient. Reports no BM in last 3 days, denies N/V or abdominal pain. All questions answered. NPO diet 24HR INTAKE/OUTPUT: No intake or output data in the 24 hours ending 06/18/23 1242 Past Medical History: History reviewed. No pertinent past medical history. LABS: CBC: Recent Labs 06/16/23 1409 06/18/23 0203 WBC 16.2* 15.5* RBC 4.40 4.96 HGB 12.8 13.9 HCT 38.9 44.1 MCV 88.4 88.9 RDW 13.6 13.8 PLT 357 375 BMP: Recent Labs 06/16/23 1409 06/18/23 0203 NA 136 133* K 4.5 4.6 CL 99 98 CO2 29 25 BUN 26* 24* CREATININE 0.79 0.83 GLUCOSE 186* 163* CALCIUM 8.6 8.8 ANIONGAP 7 10 LIVER PROFILE:No results for input(s): AST, ALT, BILITOT, ALKPHOS, PROT in the last 72 hours. No lab exists for component: LABALBU PT/INR: Recent Labs 06/16/23 1409 06/17/23 0604 PROTIME 22.3* 14.5* INR 2.2* 1.4* CARDIAC ENZYMES: No results for input(s): TROPONINI in the last 72 hours. Procalcitonin: No results found for: PROCAL COVID-19 PCR: No results for input(s): COVID19 in the last 72 hours. Objective: Vitals: BP 139/86 (BP Location: Left arm, Patient Position: Sitting) Pulse 93 Temp 36.9 ?C (98.4 ?F) (Temporal) Resp 16 Ht 5' 2.99 (1.6 m) Wt 174 lb (78.9 kg) SpO2 95% BMI 30.83 kg/m? Pulse Ox: SpO2 Av.4 % Min: 94 % Max: 97 % Supplemental O2: O2 Flow Rate (L/min): 2 L/min Physical Exam Constitutional: Appearance: Normal appearance. Cardiovascular: Rate and Rhythm: Regular rhythm. Pulses: Normal pulses. Heart sounds: Normal heart sounds. Pulmonary: Effort: Pulmonary effort is normal. Breath sounds: Normal breath sounds. Musculoskeletal: Comments: Right arm in cast, sling and swalth Skin: General: Skin is warm. Findings: No rash. Neurological: Mental Status: She is alert. Medications: Scheduled PRN atorvastatin, 40 mg, Oral, Nightly donepezil, 10 mg, Oral, Nightly insulin lispro, 0-6 Units, SubCUTAneous, TID WC And insulin lispro, 0-6 Units, SubCUTAneous, Nightly lamoTRIgine, 50 mg, Oral, BID metoprolol tartrate, 25 mg, Oral, BID pantoprazole, 40 mg, Oral, qAM AC PRN medications: acetaminophen OR acetaminophen, dextrose, dextrose, glucagon (rDNA), glucose, HYDROmorphone, naloxone, ondansetron ODT OR ondansetron, oxyCODONE OR oxyCODONE, polyethylene glycol (PEG) 3350 Continuous sodium chloride, 100 mL/hr, Last Rate: 100 mL/hr (06/18/23 1116) Assessment Data: (CAT1) Reviewed 2 labs/studies ordered by another provider not previously counted (each=1, panels count as 1). (CAT1) Ordered 2 new labs and/or studies (each=1, panels count as 1). (LOW: 2x CAT1 or independent historian MOD: 3x CAT1 or 1x CAT3 EXTENSIVE: 3x CAT1 and 1x CAT3) Acute, acute on chronic, unstable/uncontrolled chronic problems/diagnoses: Right humerus Fracture S/p fall Chronic anticoagulation use Leukocytosis-VS stable, no indication of infectious process this far Constipation Stable chronic problems affecting care, new non-acute diagnoses: Htn HPL PAF Obesity DM2 with hyperglycemia Plan As a result of the above findings & factors, the following mgmt was pursued: -medical admit, ortho following -multimodal pain control -NWB RUE, NPO -ortho following, ORIF right distal humerus planned -restart anti-coag postop per ortho recs -add Colace -SSI -start IV fluid while remaining NPO - am labs, replace lytes prn - PT/OT/CM/SW - delirium precautions: increase activity and limit nighttime disturbances - DVT prophylaxis: SCDs and encourage ambulation Complexity: Acute illness with systemic symptoms (MOD). Risk: Prescription drug/IVF/colloid was initiated, discontinued, adjusted; or reviewed with decision to maintain current orders (MOD). Advance Directive: Full Code Anticipated Discharge - Date - 3-5 days - Location - Skilled Facility - Pending the following - Surgical intervention, post op recovery, pain control, therapy evaluation Total time spent (which include face to face and non face to face encounters) : 36 minutes Extended Emergency Contact Information Primary Emergency Contact: GillesrodriguePatito Mobile Relation: Son Pulmonary Function Technician needed? No Se (more content not included)...[facility]03-20-2024 Note Department of Orthopedic Surgery Progress Note ASSESSMENT AND PLAN: This is a 87 y.o. female with R C3 distal humerus fx -Plan for ORIF R humerus today -NPO now -Cleared -Consent in chart -Keep splint C/D/I -NWB RUE -Ice/elevate SUBJECTIVE: Doing fine. Pain well controlled in splint. Answered all questions about OR. OBJECTIVE: General: A&O x3, in no acute distress, and awake VITALS: BP 139/86 (BP Location: Left arm, Patient Position: Sitting) Pulse 93 Temp 36.9 ?C (98.4 ?F) (Temporal) Resp 16 Ht 1.6 m (5' 3) Wt 78.9 kg (174 lb) SpO2 95% BMI 30.82 kg/m? MSK exam: Right Upper Extremity: -Dressing: clean/dry/intact -TTP: Elbow -BCR to fingers -SILT in radial/median/ulnar/axillary nerve distributions -Motor + AIN/PIN/ulnar nerve functionsBronson South Haven Hospital03-19-2024 Plan of care note* Care Plan - Yvan Sepulveda RN - 06/17/2023 11:35 PM EDT The patient is Moderately Stable - Low risk of patient condition declining or worsening The patient's goals for the shift include rest and pain control The clinical goals for the shift include rest and pain control [place] [id number] Nurse Note* Yvan Sepulveda RN - 06/17/2023 9:22 PM EDT Patient home medication list updated, provider made aware. [place] [id number] Nurse Note* Yvan Sepulveda RN - 06/17/2023 9:22 PM EDT Patient home medication list updated, provider made aware. documented in this [facility] [place]03-19-2024 Emergency department Note* Di Reyna RN - 06/17/2023 11:52 AM EDT Patient resting in bed at this time, equal unlabored respirations noted and no acute distress, callbell within reach Di Reyna RN 06/17/23 1153 [id number] Emergency department Note* Di Reyna RN - 06/17/2023 11:52 AM EDT Patient resting in bed at this time, equal unlabored respirations noted and no acute distress, callbell within reach Di Reyna RN 06/17/23 1153 * Alia Foster RN - 06/17/2023 10:00 AM EDT Pt O2 desaturating to mid 80s after receiving dilaudid IV. Pt placed on 2L [place] and immediately back up to 95%. notified Alia Foster RN 06/17/23 1031 * Juanjo Pringle RN - 06/16/2023 10:06 PM EDT Pt upset with intermittent beeping of IV pump. RN made several attempts to reposition arm and flushline. IV pump will run and then become occluded. After fourth attempt at repositioning, pt called RN a nitwit. RN explained that it is preferable to not place a new line unless necessary. RN will request US IV line. Juanjo Pringle RN 06/16/23 1947 * NADIA Ruiz - 06/16/2023 12:38 PM EDT Images from the original note were not included. EMERGENCY DEPARTMENT ENCOUNTER Pt Name: Ezra Gonzalez Birthdate 1935 Date of evaluation: 06/16/2023 ED Provider: NADIA Ruiz CHIEF COMPLAINT Chief Complaint Patient presents with Arm Injury Pt arrives via physician's ambulance from [facility] with complaints of right elbow fracture.Patient was sent here for ortho consult. No pain on arrival. Arrives with right arm splinted. HISTORY OF PRESENT ILLNESS (Location/Symptom, Timing/Onset, Context/Setting, Quality, Duration, Modifying Factors, Severity) Note limiting factors. I wore appropriate PPE for the entirety of this encounter. HPI Ezra Gonzalez is a 87 y.o. female who presents to the emergency department for evaluation of rightarm injury after a mechanical fall that occurred this morning. Patient reports that she tripped over a cord in her bedroom and landed on her right elbow. Denies any head injury. Denies any loss consciousness. Patient reports that she is currently on Coumadin. Denies any pain or injury anywhere else. Patient was evaluated at [facility] emergency department prior to arrival and was noted to have a distal humerus fracture. Patient was transferred to [facility] ED for orthopedic consultation. Patient denies any dizziness, lightheadedness. Denies any chest pain or shortness of breath. Denies pain or injury anywhere else. Nursing Notes were reviewed. Limitations to history: None Outside historians: None REVIEW OF SYSTEMS Review of Systems 6 systems reviewed, positives and pertinent negatives as per HPI. All other systems were reviewed and are negative. PAST MEDICAL HISTORY No past medical history on file. SURGICAL HISTORY No past surgical history on file. CURRENT MEDICATIONS Previous Medications No medications on file ALLERGIES Demerol hcl [meperidine] FAMILY HISTORY No family history on file. SOCIAL HISTORY Social History Socioeconomic History Marital status: SCREENINGS PHYSICAL EXAM ED Triage Vitals [06/16/23 1339] Temp Heart Rate Resp BP 36.7 C (98.1 F) 82 17 (!) 180/90 SpO2 Temp Source Heart Rate Source Patient Position 97 % Oral -- -- BP Location FiO2 (%) Left arm -- Physical Exam Vitals and nursing note reviewed. Constitutional: General: She is not in acute distress. Appearance: She is not toxic-appearing. Comments: 87-year-old female who does not appear to be in acute distress or discomfort. HENT: Head: Normocephalic and atraumatic. Comments: No obvious head or facial trauma noted. Nose: Nose normal. Eyes: Conjunctiva/sclera: Conjunctivae normal. Neck: Comments: No tenderness to palpation midline of cervical spine. Cardiovascular: Rate and Rhythm: Normal rate and regular rhythm. Pulses: Normal pulses. Heart sounds: Normal heart sounds. Pulmonary: Effort: Pulmonary effort is normal. Breath sounds: Normal breath sounds. Musculoskeletal: Cervical back: Normal range of motion and neck supple. Comments: Splint in place of right arm. Radial pulse 2+. Patient is neurovascularly intact distallyto splint placement. Skin: General: Skin is warm and dry. Capillary Refill: Capillary refill takes less than 2 seconds. Neurological: General: No focal deficit present. Mental Status: She is alert and oriented to person, place, and time. Psychiatric: Mood and Affect: Mood normal. DIAGNOSTIC RESULTS RADIOLOGY (Per Emergency Physician): Interpretation per the Radiologist below, if available at the time of this note: XR elbow 1 or 2 views right Final Result XR shoulder 2+ views right Final Result No acute fracture within constraints of osteopenia. High riding humeral head with abutment and degenerative changes at the inferior aspect of the acromion, suggestive of chronic rotator cuff pathology. Advanced degenerative changes at the superior aspect of the glenohumeral joint. Report Dictated on Electronically Signed By: Reji Lemus MD Electronically Signed Date/Time: 06/16/2023 3:30 PM EDT XR elbow 3+ views right Final Result Findings/Impression: AP, lateral, and oblique views of the right elbow are provided. The exam details are limited by splint material. Known, comminuted and displaced supracondylar humerus fracture, with likely areas of intra-articular extension, probably the medial condyle. Joint effusion. Consider follow-up radiographs and/or CT. Report Dictated on Electronically Signed By: Pastor Francisco MD Electronically Signed Date/Time: 06/16/2023 3:[address] elbow right wo IV contrast (Results Pending) LABS: Labs Reviewed CBC WITH AUTO DIFFERENTIAL - Abnormal Result Value Auto WBC 16.2 (*) RBC 4.40 Hemoglobin 12.8 Hematocrit 38.9 MCV 88.4 MCH 29.1 MCHC 32.9 RDW 13.6 Platelets 357 MPV 9.9 nRBC 0.0 Neutrophils Relative 88.3 (*) Lymphocytes Relative 6.5 (*) Monocytes Relative 4.4 (*) Eosinophils Relative 0.0 Basophils Relative 0.2 Immature Grans % 0.6 Neutrophils Absolute 14.3 (*) Lymphocytes Absolute 1.1 Monocytes Absolute 0.7 Eosinophils Absolute 0.0 Basophils Absolute 0.0 Immature Grans Absolute 0.1 (*) BASIC METABOLIC PANEL - Abnormal SODIUM 136 POTASSIUM 4.5 CHLORIDE 99 CARBON DIOXIDE 29 UREA NITROGEN 26 (*) CREATININE 0.79 GLUCOSE 186 (*) CALCIUM 8.6 ANION GAP 7 eGFR 72.5 PROTHROMBIN TIME - Abnormal PROTHROMBIN TIME 22.3 (*) INR 2.2 (*) BLOOD TYPE AND SCREEN GEL ABO Grouping A Antibody Screen NEG Rh Type POS CONFIRMATORY ABO/RH ABO Grouping A Rh Type POS COMPLETE URINALYSIS WITH REFLEX TO CULTURE Narrative: The following orders were created for panel order Complete Urinalysis with reflex to Culture. Procedure Abnormality Status --------- ------ Complete Urinalysis[[id number]] Please view results for these tests on the individual orders. COMPLETE URINALYSIS All other labs were within normal range or not returned as of this dictation. EMERGENCY DEPARTMENT COURSE and DIFFERENTIAL DIAGNOSIS/MDM: Vitals: Vitals: 06/16/23 1339 06/16/23 1400 06/16/23 1600 BP: (!) 180/90 (!) 136/100 (!) 172/91 BP Location: Left arm Pulse: 82 87 75 Resp: 17 19 13 Temp: 36.7 C (98.1 F) TempSrc: Oral SpO2: 97% 97% 98% Weight: 78.9 kg (174 lb) Height: 1.6 m (5' 3) Medications HYDROmorphone (Dilaudid) injection 0.5 mg (0.5 mg IntraVENous Given 06/16/23 1508) ED care was supervised by Dr. Conde who independently examined and evaluated the patient. Please see their attestation note for further details. In brief, Ezra Gonzalez is a 87 y.o. female who presented to the emergency department for evaluation of a right arm injury. Patient was seen at [facility] prior to arrival was noted to have a distal humerus fracture. Patient transferred to [facility] ED for orthopedic consultation. Nursing notes and medical records reviewed, no recent visits or studies currently patient's presenting symptoms. Differential considerations included distal humerus fracture. Initial medical management includes no initial medical management was initially in the ED. Patient was given 12.5 mcg of fentanyl prior to arrival. Initial workup includes CBC, BMP, PT/INR, type and screen, x-ray right elbow. CT head from [place] ED -shows no signs of acute cranial abnormalities. CXR from [place] ED prior to arrival -blunting of bilateral costophrenic angles noted with no othersigns of acute cardiopulmonary or osseous abnormality Lab workup results CBC shows mild leukocytosis of 16.2. BMP shows no significant electrolyte abnormalities. INR is 2.2. Patient is noted be on Coumadin. Imaging results per radiology as well as my evaluation x-ray of the right elbow shows a comminuted displaced supracondylar humerus fracture with intra-articular extension of the medial condyle. Chronic conditions contributing to patients presentation include atrial fibrillation on Coumadin, CKD stage III, diabetes mellitus, hypertension Social determinants to care: None noted. Consulted orthopedics, Dr. Hanks Ortho evaluated patient in the emergency department. Traction x-rays were taken. CT was ordered by orthopedics. Orthopedics plan is to have patient follow-up outpatient for surgery of the distal humerus. With discussion of patient she states that she is unable to care for herself at her current assisted living facility. Plan will be for patient to be admitted for PT/OT evaluation and placement into higher level of care for rehabilitation given new injury. Orthopedics is going to evaluate to see if patient can receive surgery on admission. Diagnosis close displaced fracture of the medial condyle of the right humerus. Disposition admission to the medical floor for PT/OT evaluation and placement into higher level of care as patient is unable to care for herself given new fracture of right distal humerus. Orthopedics will follow patient and potentially perform surgery inpatient. Discussed case with Dr. Cortez who a ccepted patient for admission. PROCEDURES: Unless otherwise noted below, none Procedures FINAL IMPRESSION 1. Closed displaced fracture of medial condyle of right humerus, initial encounter DISPOSITION Admit 06/16/2023 04:31:49 PM PATIENT REFERRED TO: No follow-up provider specified. DISCHARGE MEDICATIONS: New Prescriptions No medications on file (Comment: Please note this report has been produced using speech recognition software and may contain errors related to that system including errors in grammar, punctuation, and spelling, as well as words and phrases that may be inappropriate. If there are any questions or concerns please feel freeto contact the dictating provider for clarification.) NAIDA Ruiz (electronically signed) Emergency Medicine Provider NADIA Ruiz 06/16/23 1635 * Sae Conde MD - 06/16/2023 12:38 PM EDT Emergency Department Encounter [facility] EMERGENCY DEPT Patient: Ezra Gonzalez : 1935 Date of Evaluation: 06/16/2023 ED Supervising Physician: Sae Conde MD I personally saw Ezra Gonzalez and made/approved the management plan and take responsibility for the patient management. This will serve as my Supervisory note and shared attestation. I did perform a substantive portion of the visit including all aspects of the Medical Decision Making. HPI In brief, Ezra Gonzalez is a 87 y.o. female PMH reports history of dementia, home medication including Coumadin, presents with concern for right arm injury. Patient reports today she tripped and fell injuring her right arm, was seen at outside hospital where she was diagnosed with a distal humerusfracture, placed in splint, CT head obtained, transferred for orthopedic surgery evaluation. Patient reports she tripped and fell today, endorses isolated injury involving the right arm, denies pain or injury elsewhere including the head or neck, chest abdomen or pelvis, back, extremities otherwise, denies numbness or weakness, or other symptoms or concerns. Physical Exam Gen: alert, no acute distress Eye: normal conjunctiva, pupils midsized, symmetrical Neck: No midline cervical tenderness, step-offs or deformities HEENT: No visible facial trauma, no scalp contusion, no scalp tenderness Respiratory: nonlabored respiration, bilateral breath sounds present, no chest wall tenderness Cardiovascular: Normal rate, regular rhythm, distal pulses palpable in all extremities Gastrointestinal: Soft, nontender, nondistended Integumentary: Warm, dry, intact Musculoskeletal: RUE: Right arm in splint, wiggles right fingers, right hand warm and well- perfused, right radial pulse palpable LUE: No tenderness or deformity RLE: No tenderness or deformity LLE: No tenderness or deformity Back: No midline thoracic or lumbar tenderness step-offs or deformities Neurologic: Alert and oriented, nonslurred speech, answering questions appropriately, GCS 15 no focal deficits, gross motor and sensory intact throughout bilateral upper and lower extremities, wiggles right fingers, sensation intact right hand Brief ED course/MDM Patient is an 87-year-old female, presents as above, transfer from outside hospital with concern for distal humerus fracture, denies pain or injury elsewhere, she arrives afebrile hypertensive otherwise reassuring vitals, on anticoagulation, will upload imaging, obtain laboratory evaluation, consult orthopedic surgery. Per review of outside hospital documentation, CT head no acute findings, chronic involutional changes, right elbow x-ray, comminuted slightly displaced supracondylar fracture of the distal humerus with extension into the medial condyle, joint effusion and soft tissue swelling, chest x-ray stable increased markings at the lung bases suggestive of bibasilar scarring with blunting of both costophrenic angle Labs obtained, interpreted by me, notable for no renal dysfunction, WBC 16.2, INR is 2.2, UA pending All diagnostic, treatment, and disposition decisions were made by myself in conjunction with the [facility]. For all further details of the patient's emergency department visit, please see their documentation. (Comment: Please note this report has been produced using speech recognition software and may contain errors related to that system including errors in grammar, punctuation, and spelling, as well as words and phrases that may be inappropriate. If there are any questions or concerns please feel freeto contact the dictating provider for clarification.) Sae Conde MD Acute [facility] Sae Conde MD 06/16/23 1623 documented in this [facility]03-19-2024 Emergency department Note* Alia Foster RN - 06/17/2023 10:00 AM EDT Pt O2 desaturating to mid 80s after receiving dilaudid IV. Pt placed on 2L NC and immediately back up to 95%. notified Alia Foster RN 06/17/23 1031 [id number] NoteHospitalist Progress Note 06/17/2023 Subjective: Admit Date: 06/16/2023 PCP: No primary care provider on file. Room#: 44/44 BRIEF HOSPITAL COURSE: Ezra is a 87 y.o. 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 Images in Er show humerus fx. Ortho saw patient in ER and splinted it. Ortho stated patient ok to go home, but patient does not feel safe going back to [place] at this time. Since patient staying ortho might pursue surgery. Will admit for further evaluation and management. Interval History: No overnight issues. Still with RUE pain, controlled with pain medications. She denies acute issues or complaints today. Case and plan discussed with patient and bedside nurse. All questions answered. NPO diet 24HR INTAKE/OUTPUT: No intake or output data in the 24 hours ending 06/17/23 0746 Past Medical History: No past medical history on file. LABS: CBC: Recent Labs 06/16/23 1409 WBC 16.2* RBC 4.40 HGB 12.8 HCT 38.9 MCV 88.4 RDW 13.6 PLT 357 BMP: Recent Labs 06/16/23 1409 NA 136 K 4.5 CL 99 CO2 29 BUN 26* CREATININE 0.79 GLUCOSE 186* CALCIUM 8.6 ANIONGAP 7 LIVER PROFILE:No results for input(s): AST, ALT, BILITOT, ALKPHOS, PROT in the last 72 hours. No lab exists for component: LABALBU PT/INR: Recent Labs 06/16/23 1409 06/17/23 0604 PROTIME 22.3* 14.5* INR 2.2* 1.4* CARDIAC ENZYMES: No results for input(s): TROPONINI in the last 72 hours. Procalcitonin: No results found for: PROCAL COVID-19 PCR: No results for input(s): COVID19 in the last 72 hours. Objective: Vitals: BP 120/77 Pulse 88 Temp 36.7 ?C (98.1 ?F) (Oral) Resp 24 Ht 5' 3 (1.6 m) Wt 174 lb (78.9 kg) SpO2 94% BMI 30.82 kg/m? Pulse Ox: SpO2 Av.8 % Min: 90 % Max: 99 % Supplemental O2: Physical Exam Constitutional: Appearance: Normal appearance. Cardiovascular: Rate and Rhythm: Regular rhythm. Pulses: Normal pulses. Heart sounds: Normal heart sounds. Pulmonary: Effort: Pulmonary effort is normal. Breath sounds: Normal breath sounds. Musculoskeletal: Comments: Right arm in cast, sling and swalth Skin: General: Skin is warm. Findings: No rash. Neurological: Mental Status: She is alert. Medications: Scheduled PRN PRN medications: acetaminophen OR acetaminophen, HYDROmorphone, naloxone, ondansetron ODT OR ondansetron, oxyCODONE OR oxyCODONE, polyethylene glycol (PEG) 3350 Continuous Assessment Data: (CAT1) Reviewed 3 or more labs/studies ordered by another provider not previously counted (each=1, panels count as 1). (CAT1) Ordered 2 new labs and/or studies (each=1, panels count as 1). (LOW: 2x CAT1 or independent historian MOD: 3x CAT1 or 1x CAT3 EXTENSIVE: 3x CAT1 and 1x CAT3) Acute, acute on chronic, unstable/uncontrolled chronic problems/diagnoses: Right humerus Fracture S/p fall Chronic anticoagulation use Leukocytosis-VS stable, no indication of infectious process this far Stable chronic problems affecting care, new non-acute diagnoses: Htn HPL PAF Obesity Plan As a result of the above findings & factors, the following mgmt was pursued: -medical admit -multimodal pain control -NWB RUE -ortho following, ORIF right distal humerus planned today -restart anti-coag postop per ortho recs -confirm and restart home meds - am labs, replace lytes prn - PT/OT/CM/SW - delirium precautions: increase activity and limit nighttime disturbances - DVT prophylaxis: SCDs and encourage ambulation Complexity: Acute, complicated injury (MOD). Risk: Prescription drug/IVF/colloid was initiated, discontinued, adjusted; or reviewed with decision to maintain current orders (MOD). Advance Directive: Full Code Anticipated Discharge - Date - 3-5 days - Location - Skilled Facility - Pending the following - post op recovery, pain control, therapy evaluations Total time spent (which include face to face and non face to face encounters) : 37 minutes Extended Emergency Contact Information Primary Emergency Contact: Patito [place] Mobile Relation: Son Pulmonary Function Technician needed? No Secondary Emergency Contact: GillesTy uhsain Mobile Relation: Son Connie Perez APRN - [facility] Division of Hospitalist Medicine [facility]03-19-2024 NoteDepartment of Orthopedic Surgery Progress Note ASSESSMENT AND PLAN: This is a 87 y.o. female with R C3 distal humerus fx -Operative plans: Plan for ORIF R distal humerus today -Weight bearing: RLE: WBAT LLE: WBAT RUE: NWB LUE: WBAT -Range of motion parameters: No ROM of elbow or shoulder, ok for ROM wrist/fingers -Immobilization: Splint to RUE. Keep clean, dry, and intact. -Consults: Internal medicine consult for medical management -Antibiotics: No antibiotics needed. -Dressings: None -Other: Awaiting am PT/INR results -Diet: NPO in anticipation of surgery -Labs: Daily labs -PT/OT -PT recommended outpatient/post discharge?: Yes, for basic ADLs -Ice & elevate -Medical management, dvt ppx and pain control per primary -DVT ppx recommended?: Per primary team -Follow-up with Dr Givens in 2 weeks -Ortho to follow. Shayne Fonseca MD PGY2 Orthopaedic Surgery 06/17/2023 6:13 AM SUBJECTIVE: Patient resting comfortably in bed. Pain is well controlled. Denies fever/chills/systemic symptoms, new numbness/tingling, chest pain, SOB. Reports that she didn't sleep well last night since she wasn't moved up to the floor from the ED. Understands plan for surgery this afternoon and is ready to proceed. OBJECTIVE: General: A&O x3, in no acute distress, and awake VITALS: BP 121/87 Pulse 83 Temp 36.7 ?C (98.1 ?F) (Oral) Resp 16 Ht 1.6 m (5' 3) Wt 78.9 kg (174 lb) SpO2 97% BMI 30.82 kg/m? MSK exam: Right Upper Extremity: -Dressing: clean/dry/intact -TTP: Elbow -BCR to fingers -SILT in radial/median/ ulnar nerve distributions -Motor + AIN/PIN/ulnar nerve functions[facility] Emergency [facility] Note* Juanjo Pringle RN - 06/16/2023 10:06 PM EDT Pt upset with intermittent beeping of IV pump. RN made several attempts to reposition arm and flushline. IV pump will run and then become occluded. After fourth attempt at repositioning, pt called RN a nitwit. RN explained that it is preferable to not place a new line unless necessary. RN will request US IV line. Juanjo Pringle RN 06/16/23 8611 [id number] NoteAttending History and Physical Admit Date: 06/16/2023 PCP: No primary care provider on file. CHIEF COMPLAINT: fall, right elbow pain Reason for Admission: Humerus fx History Obtained From: patient HISTORY OF PRESENT ILLNESS: Ezra is a 87 y.o. 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 Images in Er show humerus fx. Ortho saw patient in ER and splinted it. Ortho stated patient ok to go home, but patient does not feel safe going back to [place] at this time. Since patient staying ortho might pursue surgery. Will admit for further evaluation and management. Past Medical History: Obesity, HTN.HPL, PAF Past Surgical History: None reported Social History: Social History Socioeconomic History Marital status: Spouse name: Not on file Number of children: Not on file Years of education: Not on file Highest education level: Not on file Occupational History Not on file Tobacco Use Smoking status: Not on file Smokeless tobacco: Not on file Substance and Sexual Activity Alcohol use: Not on file Drug use: Not on file Sexual activity: Not on file Other Topics Concern Not on file Social History Narrative Not on file Social Determinants of Health Financial Resource Strain: Not on file Food Insecurity: Not on file Transportation Needs: Not on file Physical Activity: Not on file Stress: Not on file Social Connections: Not on file Intimate Partner Violence: Not on file Housing Stability: Not on file Family History: No family history on file. Medications Prior to Admission: No current facility-administered medications on file prior to encounter. No current outpatient medications on file prior to encounter. Allergies: Allergies Allergen Reactions Demerol Hcl [Meperidine] REVIEW OF SYSTEMS: Constitutional: Negative for fever, chills, activity change and unexpected weight change. HEENT: Negative for congestion, postnasal drip and sneezing. Eyes: Negative for itching and visual disturbance. Respiratory: Negative for apnea, cough, choking, chest tightness, shortness of breath, wheezing and stridor. Cardiovascular: Negative for chest pain. Gastrointestinal: Negative for nausea, vomiting, abdominal pain, diarrhea and blood in stool. Genitourinary: Negative for dysuria, frequency and flank pain. Musculoskeletal: Negative for myalgias and joint swelling. Skin: Negative for rash. Neurological: Negative for dizziness, tremors, seizures, syncope, facial asymmetry, speech difficulty, weakness, numbness and headaches. Hematological: Negative for adenopathy. Psychiatric/Behavioral: Negative for suicidal ideas, behavioral problems, self-injury and dysphoric mood. Vitals: BP (!) 172/91 Pulse 75 Temp 36.7 ?C (98.1 ?F) (Oral) Resp 13 Ht 5' 3 (1.6 m) Wt 174 lb (78.9 kg) SpO2 98% BMI 30.82 kg/m? BMI Classification: Obese (BMI 30.0-39.9) Pulse Ox: SpO2 Av.3 % Min: 97 % Max: 98 % Supplemental O2: PHYSICAL EXAM: Physical Exam Constitutional: Appearance: Normal appearance. Cardiovascular: Rate and Rhythm: Regular rhythm. Pulses: Normal pulses. Heart sounds: Normal heart sounds. Pulmonary: Effort: Pulmonary effort is normal. Breath sounds: Normal breath sounds. Musculoskeletal: Comments: Right arm in cast, sling and swalth Skin: General: Skin is warm. Findings: No rash. Neurological: Mental Status: She is alert. DATA: CBC: Recent Labs 06/16/23 1409 WBC 16.2* RBC 4.40 HGB 12.8 HCT 38.9 MCV 88.4 RDW 13.6 PLT 357 BMP: Recent Labs 06/16/23 1409 NA 136 K 4.5 CL 99 CO2 29 BUN 26* CREATININE 0.79 GLUCOSE 186* CALCIUM 8.6 ANIONGAP 7 LIVER PROFILE:No results for input(s): AST, ALT, BILITOT, ALKPHOS, PROT in the last 72 hours. No lab exists for component: LABALBU PT/INR: Recent Labs 06/16/23 1409 PROTIME 22.3* INR 2.2* CARDIAC ENZYMES: No results for input(s): TROPONINI in the last 72 hours. Procalcitonin: No results found for: PROCAL Urine Culture: No results found for this or any previous visit. COVID-19 PCR: No results for input(s): COVID19 in the last 72 hours. I reviewed: [x] laboratory results [x] radiographic results At the time of today's encounter. Pt was advised of the results. Assessment Discussed management with the ED provider and agree with hospitalization. Acute, acute on chronic, unstable/uncontrolled chronic problems/diagnoses: Right Humerus fx 2. Fall 3. Anticoagulated Stable chronic problems affecting care, new non-acute diagnoses: Htn HPL PAF Obesity Plan As a result of the above findings & factors, the following mgmt was pursued: - admit for further eval. Ortho consulted Ortho considering surgery INR therapeutic-hold warfarin for now until definitive surgical plan established Reg diet for now Pain control am labs, (more content not included)...[facility]03-18-[facility]24 History and physical note* Jayshree Cortez MD - 06/16/2023 4:59 PM EDT Images from the original note were not included. Attending History and Physical Admit Date: 06/16/2023 PCP: No primary care provider on file. CHIEF COMPLAINT: fall, right elbow pain Reason for Admission: Humerus fx History Obtained From: patient HISTORY OF PRESENT ILLNESS: Ezra is a 87 y.o. 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 Images in Er show humerus fx. Ortho saw patient in ER and splinted it. Ortho stated patient ok to go home, but patient does not feel safe going back to [place] at this time. Since patient staying ortho might pursue surgery. Will admit for further evaluation and management. Past Medical History: Obesity, HTN.HPL, PAF Past Surgical History: None reported Social History: Social History Socioeconomic History Marital status: Spouse name: Not on file Number of children: Not on file Years of education: Not on file Highest education level: Not on file Occupational History Not on file Tobacco Use Smoking status: Not on file Smokeless tobacco: Not on file Substance and Sexual Activity Alcohol use: Not on file Drug use: Not on file Sexual activity: Not on file Other Topics Concern Not on file Social History Narrative Not on file Social Determinants of Health Financial Resource Strain: Not on file Food Insecurity: Not on file Transportation Needs: Not on file Physical Activity: Not on file Stress: Not on file Social Connections: Not on file Intimate Partner Violence: Not on file Housing Stability: Not on file Family History: No family history on file. Medications Prior to Admission: No current facility-administered medications on file prior to encounter. No current outpatient medications on file prior to encounter. Allergies: Allergies Allergen Reactions Demerol Hcl [Meperidine] REVIEW OF SYSTEMS: Constitutional: Negative for fever, chills, activity change and unexpected weight change. HEENT: Negative for congestion, postnasal drip and sneezing. Eyes: Negative for itching and visual disturbance. Respiratory: Negative for apnea, cough, choking, chest tightness, shortness of breath, wheezing andstridor. Cardiovascular: Negative for chest pain. Gastrointestinal: Negative for nausea, vomiting, abdominal pain, diarrhea and blood in stool. Genitourinary: Negative for dysuria, frequency and flank pain. Musculoskeletal: Negative for myalgias and joint swelling. Skin: Negative for rash. Neurological: Negative for dizziness, tremors, seizures, syncope, facial asymmetry, speech difficulty, weakness, numbness and headaches. Hematological: Negative for adenopathy. Psychiatric/Behavioral: Negative for suicidal ideas, behavioral problems, self- injury and dysphoricmood. Vitals: BP (!) 172/91 Pulse 75 Temp 36.7 C (98.1 F) (Oral) Resp 13 Ht 5' 3 (1.6 m) Wt 174 lb (78.9 kg) SpO2 98% BMI 30.82 kg/m BMI Classification: Obese (BMI 30.0-39.9) Pulse Ox: SpO2 Av.3 % Min: 97 % Max: 98 % Supplemental O2: PHYSICAL EXAM: Physical Exam Constitutional: Appearance: Normal appearance. Cardiovascular: Rate and Rhythm: Regular rhythm. Pulses: Normal pulses. Heart sounds: Normal heart sounds. Pulmonary: Effort: Pulmonary effort is normal. Breath sounds: Normal breath sounds. Musculoskeletal: Comments: Right arm in cast, sling and swalth Skin: General: Skin is warm. Findings: No rash. Neurological: Mental Status: She is alert. DATA: CBC: Recent Labs 06/16/23 1409 WBC 16.2* RBC 4.40 HGB 12.8 HCT 38.9 MCV 88.4 RDW 13.6 PLT 357 BMP: Recent Labs 06/16/23 1409 NA 136 K 4.5 CL 99 CO2 29 BUN 26* CREATININE 0.79 GLUCOSE 186* CALCIUM 8.6 ANIONGAP 7 LIVER PROFILE:No results for input(s): AST, ALT, BILITOT, ALKPHOS, PROT in the last 72 hours. No lab exists for component: LABALBU PT/INR: Recent Labs 06/16/23 1409 PROTIME 22.3* INR 2.2* CARDIAC ENZYMES: No results for input(s): TROPONINI in the last 72 hours. Procalcitonin: No results found for: PROCAL Urine Culture: No results found for this or any previous visit. COVID-19 PCR: No results for input(s): COVID19 in the last 72 hours. I reviewed: [x] laboratory results [x] radiographic results At the time of today's encounter. Pt was advised of the results. Assessment Discussed management with the ED provider and agree with hospitalization. Acute, acute on chronic, unstable/uncontrolled chronic problems/diagnoses: Right Humerus fx 2. Fall 3. Anticoagulated Stable chronic problems affecting care, new non-acute diagnoses: Htn HPL PAF Obesity Plan As a result of the above findings & factors, the following mgmt was pursued: - admit for further eval. Ortho consulted Ortho considering surgery INR therapeutic-hold warfarin for now until definitive surgical plan established Reg diet for now Pain control am labs, replace lytes prn PT/OT/CM/SW- may need placement at SNF - delirium precautions: increase activity and avoid anticholinergic meds, benzos, etc - DVT prophylaxis: already anticoagulated Advance Directive: Full Code Anticipated Discharge - Date - 2-3 days - Location - Skilled Facility - Pending the following - surgical plans Extended Emergency Contact Information Primary Emergency Contact: Patito [place] Mobile Relation: Son Pulmonary Function Technician needed? No Secondary Emergency Contact: Ty [place] Mobile Relation: Son Jayshree Cortez MD Division of Hospitalist Medicine [facility] [employer] Phone: [phone] History and physical note* Jayshree Cortez MD - 06/16/2023 4:59 PM EDT Images from the original note were not included. Attending History and Physical Admit Date: 06/16/2023 PCP: No primary care provider on file. CHIEF COMPLAINT: fall, right elbow pain Reason for Admission: Humerus fx History Obtained From: patient HISTORY OF PRESENT ILLNESS: Ezra is a 87 y.o. 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 Images in Er show humerus fx. Ortho saw patient in ER and splinted it. Ortho stated patient ok to go home, but patient does not feel safe going back to [place] at this time. Since patient staying ortho might pursue surgery. Will admit for further evaluation and management. Past Medical History: Obesity, HTN.HPL, PAF Past Surgical History: None reported Social History: Social History Socioeconomic History Marital status: Spouse name: Not on file Number of children: Not on file Years of education: Not on file Highest education level: Not on file Occupational History Not on file Tobacco Use Smoking status: Not on file Smokeless tobacco: Not on file Substance and Sexual Activity Alcohol use: Not on file Drug use: Not on file Sexual activity: Not on file Other Topics Concern Not on file Social History Narrative Not on file Social Determinants of Health Financial Resource Strain: Not on file Food Insecurity: Not on file Transportation Needs: Not on file Physical Activity: Not on file Stress: Not on file Social Connections: Not on file Intimate Partner Violence: Not on file Housing Stability: Not on file Family History: No family history on file. Medications Prior to Admission: No current facility-administered medications on file prior to encounter. No current outpatient medications on file prior to encounter. Allergies: Allergies Allergen Reactions Demerol Hcl [Meperidine] REVIEW OF SYSTEMS: Constitutional: Negative for fever, chills, activity change and unexpected weight change. HEENT: Negative for congestion, postnasal drip and sneezing. Eyes: Negative for itching and visual disturbance. Respiratory: Negative for apnea, cough, choking, chest tightness, shortness of breath, wheezing andstridor. Cardiovascular: Negative for chest pain. Gastrointestinal: Negative for nausea, vomiting, abdominal pain, diarrhea and blood in stool. Genitourinary: Negative for dysuria, frequency and flank pain. Musculoskeletal: Negative for myalgias and joint swelling. Skin: Negative for rash. Neurological: Negative for dizziness, tremors, seizures, syncope, facial asymmetry, speech difficulty, weakness, numbness and headaches. Hematological: Negative for adenopathy. Psychiatric/Behavioral: Negative for suicidal ideas, behavioral problems, self- injury and dysphoricmood. Vitals: BP (!) 172/91 Pulse 75 Temp 36.7 C (98.1 F) (Oral) Resp 13 Ht 5' 3 (1.6 m) Wt 174 lb (78.9 kg) SpO2 98% BMI 30.82 kg/m BMI Classification: Obese (BMI 30.0-39.9) Pulse Ox: SpO2 Av.3 % Min: 97 % Max: 98 % Supplemental O2: PHYSICAL EXAM: Physical Exam Constitutional: Appearance: Normal appearance. Cardiovascular: Rate and Rhythm: Regular rhythm. Pulses: Normal pulses. Heart sounds: Normal heart sounds. Pulmonary: Effort: Pulmonary effort is normal. Breath sounds: Normal breath sounds. Musculoskeletal: Comments: Right arm in cast, sling and swalth Skin: General: Skin is warm. Findings: No rash. Neurological: Mental Status: She is alert. DATA: CBC: Recent Labs 06/16/23 1409 WBC 16.2* RBC 4.40 HGB 12.8 HCT 38.9 MCV 88.4 RDW 13.6 PLT 357 BMP: Recent Labs 06/16/23 1409 NA 136 K 4.5 CL 99 CO2 29 BUN 26* CREATININE 0.79 GLUCOSE 186* CALCIUM 8.6 ANIONGAP 7 LIVER PROFILE:No results for input(s): AST, ALT, BILITOT, ALKPHOS, PROT in the last 72 hours. No lab exists for component: LABALBU PT/INR: Recent Labs 06/16/23 1409 PROTIME 22.3* INR 2.2* CARDIAC ENZYMES: No results for input(s): TROPONINI in the last 72 hours. Procalcitonin: No results found for: PROCAL Urine Culture: No results found for this or any previous visit. COVID-19 PCR: No results for input(s): COVID19 in the last 72 hours. I reviewed: [x] laboratory results [x] radiographic results At the time of today's encounter. Pt was advised of the results. Assessment Discussed management with the ED provider and agree with hospitalization. Acute, acute on chronic, unstable/uncontrolled chronic problems/diagnoses: Right Humerus fx 2. Fall 3. Anticoagulated Stable chronic problems affecting care, new non-acute diagnoses: Htn HPL PAF Obesity Plan As a result of the above findings & factors, the following mgmt was pursued: - admit for further eval. Ortho consulted Ortho considering surgery INR therapeutic-hold warfarin for now until definitive surgical plan established Reg diet for now Pain control am labs, replace lytes prn PT/OT/CM/SW- may need placement at SNF - delirium precautions: increase activity and avoid anticholinergic meds, benzos, etc - DVT prophylaxis: already anticoagulated Advance Directive: Full Code Anticipated Discharge - Date - 2-3 days - Location - Skilled Facility - Pending the following - surgical plans Extended Emergency Contact Information Primary Emergency Contact: Patito [place] Mobile Relation: Son Pulmonary Function Technician needed? No Secondary Emergency Contact: Ty [place] Mobile Relation: Son Jayshree Cortez MD Division of Hospitalist Medicine [facility] documented in this [facility]03-18-2024 Physician Emergency department Note* NADIA Ruiz - 06/16/2023 12:38 PM EDT Images from the original note were not included. EMERGENCY DEPARTMENT ENCOUNTER Pt Name: Ezra Gonzalez Birthdate 1935 Date of evaluation: 06/16/2023 ED Provider: NADIA Ruiz CHIEF COMPLAINT Chief Complaint Patient presents with Arm Injury Pt arrives via [facility]'s ambulance from [facility] with complaints of right elbow fracture.Patient was sent here for ortho consult. No pain on arrival. Arrives with right arm splinted. HISTORY OF PRESENT ILLNESS (Location/Symptom, Timing/Onset, Context/Setting, Quality, Duration, Modifying Factors, Severity) Note limiting factors. I wore appropriate PPE for the entirety of this encounter. HPI Ezra Gonzalez is a 87 y.o. female who presents to the emergency department for evaluation of rightarm injury after a mechanical fall that occurred this morning. Patient reports that she tripped over a cord in her bedroom and landed on her right elbow. Denies any head injury. Denies any loss consciousness. Patient reports that she is currently on Coumadin. Denies any pain or injury anywhere else. Patient was evaluated at [facility] emergency department prior to arrival and was noted to have a distal humerus fracture. Patient was transferred to [facility] ED for orthopedic consultation. Patient denies any dizziness, lightheadedness. Denies any chest pain or shortness of breath. Denies pain or injury anywhere else. Nursing Notes were reviewed. Limitations to history: None Outside historians: None REVIEW OF SYSTEMS Review of Systems 6 systems reviewed, positives and pertinent negatives as per HPI. All other systems were reviewed and are negative. PAST MEDICAL HISTORY No past medical history on file. SURGICAL HISTORY No past surgical history on file. CURRENT MEDICATIONS Previous Medications No medications on file ALLERGIES Demerol hcl [meperidine] FAMILY HISTORY No family history on file. SOCIAL HISTORY Social History Socioeconomic History Marital status: SCREENINGS PHYSICAL EXAM ED Triage Vitals [06/16/23 1339] Temp Heart Rate Resp BP 36.7 C (98.1 F) 82 17 (!) 180/90 SpO2 Temp Source Heart Rate Source Patient Position 97 % Oral -- -- BP Location FiO2 (%) Left arm -- Physical Exam Vitals and nursing note reviewed. Constitutional: General: She is not in acute distress. Appearance: She is not toxic-appearing. Comments: 87-year-old female who does not appear to be in acute distress or discomfort. HENT: Head: Normocephalic and atraumatic. Comments: No obvious head or facial trauma noted. Nose: Nose normal. Eyes: Conjunctiva/sclera: Conjunctivae normal. Neck: Comments: No tenderness to palpation midline of cervical spine. Cardiovascular: Rate and Rhythm: Normal rate and regular rhythm. Pulses: Normal pulses. Heart sounds: Normal heart sounds. Pulmonary: Effort: Pulmonary effort is normal. Breath sounds: Normal breath sounds. Musculoskeletal: Cervical back: Normal range of motion and neck supple. Comments: Splint in place of right arm. Radial pulse 2+. Patient is neurovascularly intact distallyto splint placement. Skin: General: Skin is warm and dry. Capillary Refill: Capillary refill takes less than 2 seconds. Neurological: General: No focal deficit present. Mental Status: She is alert and oriented to person, place, and time. Psychiatric: Mood and Affect: Mood normal. DIAGNOSTIC RESULTS RADIOLOGY (Per Emergency Physician): Interpretation per the Radiologist below, if available at the time of this note: XR elbow 1 or 2 views right Final Result XR shoulder 2+ views right Final Result No acute fracture within constraints of osteopenia. High riding humeral head with abutment and degenerative changes at the inferior aspect of the acromion, suggestive of chronic rotator cuff pathology. Advanced degenerative changes at the superior aspect of the glenohumeral joint. Report Dictated on Electronically Signed By: Reji Lemus MD Electronically Signed Date/Time: 06/16/2023 3:30 PM EDT XR elbow 3+ views right Final Result Findings/Impression: AP, lateral, and oblique views of the right elbow are provided. The exam details are limited by splint material. Known, comminuted and displaced supracondylar humerus fracture, with likely areas of intra-articular extension, probably the medial condyle. Joint effusion. Consider follow-up radiographs and/or CT. Report Dictated on Electronically Signed By: Pastor Francisco MD Electronically Signed Date/Time: 06/16/2023 3:[address] elbow right wo IV contrast (Results Pending) LABS: Labs Reviewed CBC WITH AUTO DIFFERENTIAL - Abnormal Result Value Auto WBC 16.2 (*) RBC 4.40 Hemoglobin 12.8 Hematocrit 38.9 MCV 88.4 MCH 29.1 MCHC 32.9 RDW 13.6 Platelets 357 MPV 9.9 nRBC 0.0 Neutrophils Relative 88.3 (*) Lymphocytes Relative 6.5 (*) Monocytes Relative 4.4 (*) Eosinophils Relative 0.0 Basophils Relative 0.2 Immature Grans % 0.6 Neutrophils Absolute 14.3 (*) Lymphocytes Absolute 1.1 Monocytes Absolute 0.7 Eosinophils Absolute 0.0 Basophils Absolute 0.0 Immature Grans Absolute 0.1 (*) BASIC METABOLIC PANEL - Abnormal SODIUM 136 POTASSIUM 4.5 CHLORIDE 99 CARBON DIOXIDE 29 UREA NITROGEN 26 (*) CREATININE 0.79 GLUCOSE 186 (*) CALCIUM 8.6 ANION GAP 7 eGFR 72.5 PROTHROMBIN TIME - Abnormal PROTHROMBIN TIME 22.3 (*) INR 2.2 (*) BLOOD TYPE AND SCREEN GEL ABO Grouping A Antibody Screen NEG Rh Type POS CONFIRMATORY ABO/RH ABO Grouping A Rh Type POS COMPLETE URINALYSIS WITH REFLEX TO CULTURE Narrative: The following orders were created for panel order Complete Urinalysis with reflex to Culture. Procedure Abnormality Status --------- ------ Complete Urinalysis[[id number]] Please view results for these tests on the individual orders. COMPLETE URINALYSIS All other labs were within normal range or not returned as of this dictation. EMERGENCY DEPARTMENT COURSE and DIFFERENTIAL DIAGNOSIS/MDM: Vitals: Vitals: 06/16/23 1339 06/16/23 1400 06/16/23 1600 BP: (!) 180/90 (!) 136/100 (!) 172/91 BP Location: Left arm Pulse: 82 87 75 Resp: 17 19 13 Temp: 36.7 C (98.1 F) TempSrc: Oral SpO2: 97% 97% 98% Weight: 78.9 kg (174 lb) Height: 1.6 m (5' 3) Medications HYDROmorphone (Dilaudid) injection 0.5 mg (0.5 mg IntraVENous Given 06/16/23 1508) ED care was supervised by Dr. Conde who independently examined and evaluated the patient. Please see their attestation note for further details. In brief, Ezra Gonzalez is a 87 y.o. female who presented to the emergency department for evaluation of a right arm injury. Patient was seen at [facility] prior to arrival was noted to have a distal humerus fracture. Patient transferred to [facility] ED for orthopedic consultation. Nursing notes and medical records reviewed, no recent visits or studies currently patient's presenting symptoms. Differential considerations included distal humerus fracture. Initial medical management includes no initial medical management was initially in the ED. Patient was given 12.5 mcg of fentanyl prior to arrival. Initial workup includes CBC, BMP, PT/INR, type and screen, x-ray right elbow. CT head from [place] ED -shows no signs of acute cranial abnormalities. CXR from [place] ED prior to arrival -blunting of bilateral costophrenic angles noted with no othersigns of acute cardiopulmonary or osseous abnormality Lab workup results CBC shows mild leukocytosis of 16.2. BMP shows no significant electrolyte abnormalities. INR is 2.2. Patient is noted be on Coumadin. Imaging results per radiology as well as my evaluation x-ray of the right elbow shows a comminuted displaced supracondylar humerus fracture with intra-articular extension of the medial condyle. Chronic conditions contributing to patients presentation include atrial fibrillation on Coumadin, CKD stage III, diabetes mellitus, hypertension Social determinants to care: None noted. Consulted orthopedics, Dr. Hanks [facility] evaluated patient in the emergency department. Traction x-rays were taken. CT was ordered by orthopedics. Orthopedics plan is to have patient follow-up outpatient for surgery of the distal humerus. With discussion of patient she states that she is unable to care for herself at her current assisted living facility. Plan will be for patient to be admitted for PT/OT evaluation and placement into higher level of care for rehabilitation given new injury. Orthopedics is going to evaluate to see if patient can receive surgery on admission. Diagnosis close displaced fracture of the medial condyle of the right humerus. Disposition admission to the medical floor for PT/OT evaluation and placement into higher level of care as patient is unable to care for herself given new fracture of right distal humerus. Orthopedics will follow patient and potentially perform surgery inpatient. Discussed case with Dr. Cortez who a ccepted patient for admission. PROCEDURES: Unless otherwise noted below, none Procedures FINAL IMPRESSION 1. Closed displaced fracture of medial condyle of right humerus, initial encounter DISPOSITION Admit 06/16/2023 04:31:49 PM PATIENT REFERRED TO: No follow-up provider specified. DISCHARGE MEDICATIONS: New Prescriptions No medications on file (Comment: Please note this report has been produced using speech recognition software and may contain errors related to that system including errors in grammar, punctuation, and spelling, as well as words and phrases that may be inappropriate. If there are any questions or concerns please feel freeto contact the dictating provider for clarification.) NADIA Ruiz (electronically signed) Emergency Medicine Provider NADIA Ruiz [facility]/16/23 1635 [id number] Emergency department Note* Sae Conde MD - 06/16/2023 12:38 PM EDT Emergency Department Encounter [facility] EMERGENCY DEPT Patient: Ezra Gonzalez : 1935 Date of Evaluation: 06/16/2023 ED Supervising Physician: Sae Conde MD I personally saw Ezra Gonzalez and made/approved the management plan and take responsibility for the patient management. This will serve as my Supervisory note and shared attestation. I did perform a substantive portion of the visit including all aspects of the Medical Decision Making. HPI In brief, Ezra Gonzalez is a 87 y.o. female PMH reports history of dementia, home medication including Coumadin, presents with concern for right arm injury. Patient reports today she tripped and fell injuring her right arm, was seen at outside hospital where she was diagnosed with a distal humerusfracture, placed in splint, CT head obtained, transferred for orthopedic surgery evaluation. Patient reports she tripped and fell today, endorses isolated injury involving the right arm, denies pain or injury elsewhere including the head or neck, chest abdomen or pelvis, back, extremities otherwise, denies numbness or weakness, or other symptoms or concerns. Physical Exam Gen: alert, no acute distress Eye: normal conjunctiva, pupils midsized, symmetrical Neck: No midline cervical tenderness, step-offs or deformities HEENT: No visible facial trauma, no scalp contusion, no scalp tenderness Respiratory: nonlabored respiration, bilateral breath sounds present, no chest wall tenderness Cardiovascular: Normal rate, regular rhythm, distal pulses palpable in all extremities Gastrointestinal: Soft, nontender, nondistended Integumentary: Warm, dry, intact Musculoskeletal: RUE: Right arm in splint, wiggles right fingers, right hand warm and well- perfused, right radial pulse palpable LUE: No tenderness or deformity RLE: No tenderness or deformity LLE: No tenderness or deformity Back: No midline thoracic or lumbar tenderness step-offs or deformities Neurologic: Alert and oriented, nonslurred speech, answering questions appropriately, GCS 15 no focal deficits, gross motor and sensory intact throughout bilateral upper and lower extremities, wiggles right fingers, sensation intact right hand Brief ED course/MDM Patient is an 87-year-old female, presents as above, transfer from outside hospital with concern for distal humerus fracture, denies pain or injury elsewhere, she arrives afebrile hypertensive otherwise reassuring vitals, on anticoagulation, will upload imaging, obtain laboratory evaluation, consult orthopedic surgery. Per review of outside hospital documentation, CT head no acute findings, chronic involutional changes, right elbow x-ray, comminuted slightly displaced supracondylar fracture of the distal humerus with extension into the medial condyle, joint effusion and soft tissue swelling, chest x-ray stable increased markings at the lung bases suggestive of bibasilar scarring with blunting of both costophrenic angle Labs obtained, interpreted by me, notable for no renal dysfunction, WBC 16.2, INR is 2.2, UA pending All diagnostic, treatment, and disposition decisions were made by myself in conjunction with the [facility]. For all further details of the patient's emergency department visit, please see their documentation. (Comment: Please note this report has been produced using speech recognition software and may contain errors related to that system including errors in grammar, punctuation, and spelling, as well as words and phrases that may be inappropriate. If there are any questions or concerns please feel freeto contact the dictating provider for clarification.) Sae Conde MD Acute Care [facility] Sae Conde MD 06/16/23 1626 [facility] Phone: 1(848) 569-450109-30-2023 Discharge summary Author Lali Pimentel [facility] December 27, 2022 10:31pm Note Date/Time December 27, 2022 3:52pm [facility] Medical Records Department [address] [place] [address] Emergency Department Summary 12/27/22 MR#: [id number] Acct: [id number] Name: EZRA GONZALEZ Rep #:[id number] : 1935 87 From: Lali Pimentel MD PCP: Dr. Rosemary Doran MD Status:ADM MARIELOS Location: [address] History of Present Illness Chief Complaint: Stroke Alert Informant: patient, EMS and SNF Onset/Context/Timing Onset: Today Narrative Narrative: Consider EMS as a stroke alert. Patient reportedly was last known well at 1 PM this afternoon. When staff went to take her snack this afternoon they noted herspeech to be garbled. She has no other complaints. Patient has had this happen6 other times and has been worked up for stroke/TIA. Most recent evaluation wasearlier this month. EMS notes patient is able to answer simple questions, but if you ask her to repeat a phrase her speech is garbled. 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) Osteoarthritis Paroxysmal atrial fibrillation Persistent atrial fibrillation Pleural effusion on right (09/2019) Spinal stenosis Type 2 diabetes mellitus Home Medications simvastatin 20 mg tablet 20 mg PO DAILY 10/11/19 [History Last Taken Unknown] multivitamin 1 cap PO DAILY 12/10/19 [History Last Taken Unknown] ascorbate calcium (vitamin C) 500 mg tablet 500 mg PO DAILY 01/31/21 [History Last Taken Unknown] metoprolol succinate 25 mg tablet,extended release 24 hr 25 mg PO BID #90 tabs 05/16/22 [Rx Last Taken Unknown] donepezil 10 mg tablet 10 mg PO QHS #30 tabs 09/18/22 [Rx Last Taken Unknown] warfarin 2.5 mg tablet 2.5 mg PO DAILY 10/15/22 [History Last Taken Unknown] diphenhydramine HCl 25 mg tablet (Allergy) 25 mg PO QHS PRN allergy symptoms 11/14/22 [History Last Taken Unknown] omeprazole 20 mg capsule,delayed release 20 mg PO DAILY reflux 11/14/22 [History Last Taken Unknown] Allergy/AdvReac Type Severity Reaction Status Date / Time latex Allergy rash Verified 12/27/22 15:40 amiodarone AdvReac Severe Hair Verified 12/27/22 15:40 falling out in gobs atorvastatin [From Lipitor] AdvReac myalgia Verified 12/27/22 15:40 codeine AdvReac Nausea Verified 12/27/22 15:40 meperidine [From Demerol] AdvReac Nausea/Vom/ Verified 12/27/22 15:40 Diarrhea rosuvastatin [From Crestor] AdvReac myalgia Verified 12/27/22 15:40 Family History Father CAD (coronary artery disease) Brother CAD (coronary artery disease) Surgical History History of coronary artery stent placement (02/14/07) History of knee replacement History of kyphoplasty (~05/2020) History of left heart catheterization (12/27/19) History of left hip replacement History of radiofrequency ablation procedure for cardiac arrhythmia (2011) History of repair of rotator cuff Social History housing: assisted living facility Smoking Status: Former smoker how long ago did patient quit smokin years ago alcohol intake: former substance use type: does not use caffeine: No ROS ROS ED Constitutional Constitutional ED: Denies chills or fever(s) Eyes Eyes: Reports discharge from eye(s); Denies change in vision ENT ENT ED: Reports discharge from eye(s); Denies rhinorrhea or sore throat Cardiovascular Cardiovascular: Denies chest pain or palpitations Respiratory/Chest Respiratory/Chest: Denies cough or dyspnea Gastrointestinal Gastrointestinal: Denies abdominal pain, nausea or vomiting Genitourinary Genitourinary ED: Denies dysuria Musculoskeletal Musculoskeletal: Denies back pain or extremity pain Integumentary Denies Abrasions or rash Neurologic Neurologic: Denies headache(s) or weakness Allergic/Immunologic Allergic/Immunologic ED: Denies lip swelling or urticaria EXAM Physical Exam Const Vital Signs: 12/27/22 15:36 12/27/22 15:42 12/27/22 15:27 Temperature 97.9 F 97.9 F Temperature Source Temporal Temporal Pulse Rate Respiratory Rate 18 18 Blood Pressure 153/96 H 153/98 H Blood Pressure Mean 115 116 Pulse Ox 96 96 Oxygen Delivery Method Room Air Room Air Room Air 12/27/22 15:27 12/27/22 15:27 12/27/22 15:54 Temperature Temperature Source Pulse Rate 79 80 84 Respiratory Rate 14 16 16 Blood Pressure 182/100 H 182/100 H 182/100 H Blood Pressure Mean 127 127 127 Pulse Ox 96 96 96 Oxygen Delivery Method Room Air Room Air Room Air 12/27/22 15:57 Temperature Temperature Source Pulse Rate 78 Respiratory Rate 16 Blood Pressure 109/73 Blood Pressure Mean 85 Pulse Ox 96 Oxygen Delivery Method Room Air Positive well nourished and well developed General Appearance ED: well developed HEENT Reports moist mucous membranes Eyes EOMs intact bilaterally Chest Wall inspection of chest normal and palpation of chest normal Resp normal respiratory effort and clear to auscultation bilaterally Cardio Rate: regular rate Rhythm: regular rhythm GI soft to palpation and non-tender Extremity normal to inspection Neuro Neuro Narrative: see NIH stroke score Psych mental status grossly normal NIHSS NIHSS Initial: 1a Level of Consciousness: 0 1b LOC Questions (Score 2 if aphasic/stupor): 0 1c LOC Commands (Only score 1st attempt): 0 2 Best Gaze (If aphasic, use reflexive mvmts.): 0 3 Visual: 0 4 Facial Palsy: 0 5 Motor Arm Right (UN = amputation/fusion): 0 5 Motor Arm Left: 0 6 Motor Leg Right: 0 6 Motor Leg Left: 0 7 Limb ataxia (Only + if out of proportion): 0 8 Sensory (Aphasia/stupor=0 or 1, coma=2): 0 9 Best Language: 1 10 Dysarthria (mute, coma=2, intubated=UN): 1 11 Extinction and Inattention (only scored if +): 0 Total Score: 2 MDM MDM MDM Narrative Medical decision making narrative: Blood was met at the EMS doors. Patient quickly examined and sent immediately to CT. I did review her recent work-ups. On November 14 patient was admitted for a TIA. She had a CT scan of the head along with a CTA of the head and neck. She had an MRI of the brain that showed no evidence of stroke. She was discharged home on the . She then returned to the emergency room in November 18 with another, resolved, episode of garbled speech. CT was unremarkable and patient was discharged back to her assisted living facility at that time. Labwork obtained to evaluate for leukocytosis, anemia, and electrolyte derangement. EKG obtained to evaluate for cardiac arrhythmia/ischemia. Chest x-ray obtained to evaluate for acute lung pathology, cardiac size, or mediastinal abnormality. History & Record Review Discussion w/independent historian: Significant other Additional record(s) reviewed:: Prior inpatient record, Prior ED visit and Priorlabs Lab Data Attestation: I reviewed the patient's lab results. Labs: Laboratory Results - last 24 hr 12/27/22 15:45 WBC 7.5 RBC 4.12 L Hgb 12.1 Hct 38.5 MCV 93.4 MCH 29.4 MCHC 31.4 L RDW Std Deviation 44.5 H RDW Coeff of Sumeet 13.2 Plt Count 274 MPV 10.1 Immature Gran % (Auto) 0.400 Neut % (Auto) 57.4 Lymph % (Auto) 27.9 Crawford % (Auto) 10.8 H Eos % (Auto) 2.8 Baso % (Auto) 0.7 Absolute Neuts (auto) 4.3 Absolute Lymphs (auto) 2.10 Nucleated RBC % 0 PT 25.7 H INR 2.3 APTT 48.2 H Sodium 138 Potassium 4.1 Chloride 106 Carbon Dioxide 28.0 Anion Gap 4 L BUN 19 H Creatinine 1.01 Estim Creat Clear Calc 32.46 Est GFR (MDRD) Af Amer 67 Est GFR (MDRD) Non-Af 55 L BUN/Creatinine Ratio 18.8 Glucose 119 H Calcium 8.1 L Troponin I High Sens 10 Radiography Chest X-Ray - ED: 1 View, Read by ED Physician and Chronic Changes Diagnostic Testing: Clinical Impression(s) from Imaging Studies Brain CT 12/27/22 15:25 IMPRESSION: No acute intracranial process identified. Moderate chronic involutional and white matter changes. Electronically Signed: Ban Avila MD at 15:37 EDT , ADDENDUM: 12/27/22 1548 IMPRESSION: No acute intracranial process identified. Moderate chronic involutional and white matter changes. N.B. : The above Results were Read Back by Ban Avila MD to Lali Pimentel MD, and understanding confirmed on 12/27/2022 15:42:32 (ET). Electronically Signed: aBn Avila MD at 15:37 EDT , Head/Neck CTA 12/27/22 15:28 IMPRESSION: Stable CTA Carotid, and CTA Brain with the previous study with no acute changes. Electronically Signed: Chuy Kruger DO at 16:21 EDT , ADDENDUM: 12/27/22 1630 IMPRESSION: Stable CTA Carotid, and CTA Brain with the previous study with no acute changes. N.B. : The above Results were Read Back by Chuy Kruger DO to Lali Pimentel MD, and understanding confirmed on 12/27/2022 16:23:14 (ET). Electronically Signed: Chuy Kruger DO at 16:21 EDT , Chest X-Ray 12/27/22 16:24 IMPRESSION: Mild interstitial prominence. Electronically Signed: Chuy Kruger DO at 16:33 EDT , EKG Initial EKG: Attestation: I personally reviewed and interpreted this EKG as follows: Interpretation: Atrial Fibrillation (Atrial fibrillation with a ventricular rate of 79 bpm. No acute ischemia.) Treatment and Re-Evaluation Narrative: Patient was reexamined in the room with neurologist from [facility]. She still has some difficulty with speech, but she is able to read sentences much clearer thanwhen she first arrived to the ER. Patient feels that she is back to baseline. CT of the head as well as CTA of the head and neck reveals no acute findings. BC was normal white count at 7.5 with a hemoglobin of 12.1. INR is therapeutic at 2.3. Chemistry studies are unremarkable with normal renal function, creatinine 1.01. Her glucose is 119. Her troponin is normal at 10. Neurology from [facility] felt that the patient should be admitted for MRI with contrast as well as an EEG. With patient now having 7 episodes of the same symptoms he is concerned that this may be an atypical seizure. Stroke Documentation Questions Stroke Team Activated: Yes Was Patient considered for Endovascular Intervention?: No-CTA negative, determined not to be an endovascular candidate IV Thrombolytic Administered: No (Patient therapeutic on Coumadin) Discharge Plan Triage Chief Complaint: Stroke Alert ED Provider: Lali Pimentel Dx/Rx/DC Orders Clinical Impression: Difficulty with speech Prescriptions: No Action multivitamin capsule 1 cap PO DAILY ascorbate calcium (vitamin C) 500 mg tablet 500 mg PO DAILY Hold Instructions: Order Completed warfarin 2.5 mg tablet 2.5 mg PO DAILY Patient Comments: TAKE 1 TABLET BY MOUTH ONCE DAILY Rx Instructions: Managed by PCP donepezil 10 mg tablet 10 mg PO QHS Qty: 30 5RF Rx Instructions: Begin after completing one month of treatment of donepezil 5mg nightly simvastatin 20 MG tablet 20 mg PO DAILY diphenhydramine HCl [Allergy] 25 mg tablet 25 mg PO QHS PRN (Reason: allergy symptoms) omeprazole 20 mg capsule,delayed release(DR/EC) 20 mg PO DAILY metoprolol succinate 25 mg tablet extended release 24 hr 25 mg PO BID Qty: 90 3RF Primary Care Provider: Rosemary Doran Referrals: Rosemary Doran MD [Primary Care Provider] - Disposition Disposition: Acute Care [facility] What to do if you have Problems For any increased pain, shortness of breath, bleeding, nausea or vomiting, chestpain, or any unexpected problems, contact your Primary Care Provider. Call [facility] ([phone]) or report to the closest Emergency Room. Call 911 if necessary. 12/27/222230 <Electronically signed by Lali Pimentel MD> Cosigner Signature (if applicable): CC: Dr. Rosemary Doran MD ~ Signed [facility] Work Phone: 1(461) 278-405209-29-2023 History and physical note Author Lynn Horn [facility] December 27, 2022 6:54pm Note Date/Time December 27, 2022 5:12pm [facility] Medical Records Department [address] [place] [id number] H&P Exam - Hospitalist 12/27/22 1709 MR#: [id number] Acct: [id number] Name: EZRA GONZALEZ Rep #:[id number] : 1935 87 From: Lynn Horn DO PCP: Dr. Rosemary Doran MD Status:ADM MARIELOS Location: [place] [address] HPI - General General Date of Admission: 12/27/22 Date of Service: 12/27/22 Chief Complaint: Speech abnormalities HPI Narrative EZRA GONZALEZ, is a 87 F who presented to the emergency department at [facility] on 12/27/2022 with speech abnormalities that started after 1 PM this afternoon. She resides at [facility] assisted living. She was last known well at 1 PM in the afternoon and when the staff went to take her a snack they noted that her speech was garbled. She had no other complaints. She reported that this is the seventh time this is happened and she has not had any answers as to why it continues to happen. Imaging has been unremarkable for strokes. She is fully baseline on Coumadin and her INR is therapeutic at this time. He does have carotid artery stenosis for which she is following with vascular surgery and she also follows with neurology. Each episode of dysarthria/aphasia is brief and last less than 30 minutes. The patient states that she feels this episode is lasting a bit longer and she is complaining of having some word finding difficulties however during my exam her speech is quitefluid and she only forgets the name of where she is living and missed names it during our conversation. She does report that her memory does not seem to be asgood as it usually is. Vascular surgery indicated that her stenosis is well below 50% and there is no indication for surgical intervention at this time and they recommended adding aspirin 81 mg and increasing her simvastatin to 40 mg daily with a repeat carotid duplex in 2 years however it does not appear that she is on aspirin currently and statin dose still 20 mg however her med reconciliation has not yet been updated. I suspect her simvastatin dose has notbeen updated to a higher dose as she does have history with myalgias with multiple other statins. I will add aspirin at this time. Vital signs on presentation are overall unremarkable with the temperature 97.4, heart rate 87, blood pressure of 148/81, respiratory rate of 16 and oxygen saturations are 95% on room air. Her CBC is unremarkable. Her INR is therapeutic at 2.3. Her chemistry panel is unremarkable. Troponin was normal. EKG was unremarkable for any acute findings. CT of the brain shows atrophy but no acute findings. A CTA of the head and neck was unremarkable for any acute findings. Chest x-ray was unremarkable for any acute findings. Neurology evaluated the patient in the emergency department and was aware of herprevious work-up. The only additional recommendations they had were to get an EEG and get an MRI with and without contrast. 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) Osteoarthritis Paroxysmal atrial fibrillation Persistent atrial fibrillation Pleural effusion on right (09/2019) Spinal stenosis Type 2 diabetes mellitus Home Medications simvastatin 20 mg tablet 20 mg PO DAILY 10/11/19 [History Last Taken Unknown] multivitamin 1 cap PO DAILY 12/10/19 [History Last Taken Unknown] ascorbate calcium (vitamin C) 500 mg tablet 500 mg PO DAILY 01/31/21 [History Last Taken Unknown] metoprolol succinate 25 mg tablet,extended release 24 hr 25 mg PO BID #90 tabs 05/16/22 [Rx Last Taken Unknown] donepezil 10 mg tablet 10 mg PO QHS #30 tabs 09/18/22 [Rx Last Taken Unknown] warfarin 2.5 mg tablet 2.5 mg PO DAILY 10/15/22 [History Last Taken Unknown] diphenhydramine HCl 25 mg tablet (Allergy) 25 mg PO QHS PRN allergy symptoms 11/14/22 [History Last Taken Unknown] omeprazole 20 mg capsule,delayed release 20 mg PO DAILY reflux 11/14/22 [History Last Taken Unknown] Allergy/AdvReac Type Severity Reaction Status Date / Time latex Allergy rash Verified 12/27/22 15:40 amiodarone AdvReac Severe Hair Verified 12/27/22 15:40 falling out in gobs atorvastatin [From Lipitor] AdvReac myalgia Verified 12/27/22 15:40 codeine AdvReac Nausea Verified 12/27/22 15:40 meperidine [From Demerol] AdvReac Nausea/Vom/ Verified 12/27/22 15:40 Diarrhea rosuvastatin [From Crestor] AdvReac myalgia Verified 12/27/22 15:40 Family History Father CAD (coronary artery disease) Brother CAD (coronary artery disease) Surgical History History of coronary artery stent placement (02/14/07) History of knee replacement History of kyphoplasty (~05/2020) History of left heart catheterization (12/27/19) History of left hip replacement History of radiofrequency ablation procedure for cardiac arrhythmia (2011) History of repair of rotator cuff Social History housing: assisted living facility Smoking Status: Former smoker how long ago did patient quit smokin years ago alcohol intake: former substance use type: does not use caffeine: No Vital Signs Vital Signs Vital Signs: 12/27/22 15:36 12/27/22 15:42 12/27/22 15:27 Temperature 97.9 F 97.9 F Temperature Source Temporal Temporal Pulse Rate Respiratory Rate 18 18 Blood Pressure 153/96 H 153/98 H Blood Pressure Mean 115 116 Pulse Ox 96 96 Oxygen Delivery Method Room Air Room Air Room Air 12/27/22 15:27 12/27/22 15:27 12/27/22 15:54 Temperature Temperature Source Pulse Rate 79 80 84 Respiratory Rate 14 16 16 Blood Pressure 182/100 H 182/100 H 182/100 H Blood Pressure Mean 127 127 127 Pulse Ox 96 96 96 Oxygen Delivery Method Room Air Room Air Room Air 12/27/22 15:57 Temperature Temperature Source Pulse Rate 78 Respiratory Rate 16 Blood Pressure 109/73 Blood Pressure Mean 85 Pulse Ox 96 Oxygen Delivery Method Room Air Weight Weight: 86.3 kg Body Mass Index (BMI) 33.7 Physical Exam Const alert, oriented x3, no apparent distress, healthy appearing and well nourished Constitutional Narrative: Very pleasant, obese, elderly white female, lying in bed, appears comfortable and nontoxic, at bedside, minimal word finding difficulties but speech isfluid and completely intelligible, patient appears younger than stated age HEENT normocephalic, head/scalp atraumatic and moist oral mucous membranes HEENT Narrative: Mild hearing loss, dentition is poor, Mallampati is 3, no thrush Eyes PERRL, EOMs intact bilaterally and conjunctivae normal Eyes Narrative: No scleral icterus Neck no lymphadenopathy, supple, no JVD and no carotid bruits Neck Narrative: Acute midline, no thyroid enlargement Resp normal respiratory effort, no retractions, no use of accessory muscles and clearto auscultation bilaterally Auscultation: Negative for rales, rhonchi or wheezes Cardio regular rate, regular rhythm, S1 normal heart sound, S2 normal heart sound, no murmurs, no rub, no gallops and no clicks GI normal to inspection, nondistended, normoactive bowel sounds, soft to palpation and non-tender Extremity no clubbing, cyanosis or edema Extremity Narrative: Pedal pulses are 2+ Neuro oriented x3, CN's II-XII intact bilaterally, moves all extremities and no focal motor deficits Neuro Narrative: Minimal generalized weakness noted on exam Sensorium / Orientation: oriented to person, oriented to place and oriented to time Speech: speech normal Psych affect normal Psych Narrative: Very pleasant, interacts appropriately Results Lab / Micro Data Attestation: I reviewed the patient's lab results. 12/27/22 15:45 12/27/22 15:45 Labs: Laboratory Results - last 24 hr 12/27/22 15:45: WBC 7.5, RBC 4.12 L, Hgb 12.1, Hct 38.5, MCV 93.4, MCH 29.4, MCHC 31.4 L, RDW Std Deviation 44.5 H, RDW Coeff of Sumeet 13.2, Plt Count 274, MPV10.1, Immature Gran % (Auto) 0.400, Neut % (Auto) 57.4, Lymph % (Auto) 27.9, Crawford % (Auto) 10.8 H, Eos % (Auto) 2.8, Baso % (Auto) 0.7, Absolute Neuts (auto)4.3, Absolute Lymphs (auto) 2.10, Nucleated RBC % 0, PT 25.7 H, INR 2.3, APTT 48.2 H, Sodium 138, Potassium 4.1, Chloride 106, Carbon Dioxide 28.0, Anion Gap 4 L, BUN 19 H, Creatinine 1.01, Estim Creat Clear Calc 32.46, Est GFR (MDRD) Af Amer 67, Est GFR (MDRD) Non-Af 55 L, BUN/Creatinine Ratio 18.8, Glucose 119 H, Calcium 8.1 L, Troponin I High Sens [address] 12/27/22 15:25 IMPRESSION: No acute intracranial process identified. Moderate chronic involutional and white matter changes. Electronically Signed: Ban Avila MD at 15:37 EDT , ADDENDUM: 12/27/22 1548 IMPRESSION: No acute intracranial process identified. Moderate chronic involutional and white matter changes. N.B. : The above Results were Read Back by Ban Avila MD to Lali Pimentel MD, and understanding confirmed on 12/27/2022 15:42:32 (ET). Electronically Signed: Ban Avila MD at 15:37 EDT , Head/Neck CTA 12/27/22 15:28 IMPRESSION: Stable CTA Carotid, and CTA Brain with the previous study with no acute changes. Electronically Signed: Chuy Kruger DO at 16:21 EDT , ADDENDUM: 12/27/22 1630 IMPRESSION: Stable CTA Carotid, and CTA Brain with the previous study with no acute changes. N.B. : The above Results were Read Back by Chuy Kruger DO to Lali Pimentel MD, and understanding confirmed on 12/27/2022 16:23:14 (ET). Electronically Signed: Chuy Kruger DO at 16:21 EDT , Chest X-Ray 12/27/22 16:24 IMPRESSION: Mild interstitial prominence. Electronically Signed: Chuy Kruger DO at 16:33 EDT , Assessment & Plan Assessment/Plan (1) Difficulty with speech: (2) Dysarthria: PLAN: Plan Dysarthria/word finding difficulties -Extensive stroke work-up multiple times recently -She reports this is the seventh time this is happened in the last month or 2 -Check contrasted MRI -Check EEG -Consider reconsultation of neurology after imaging is performed -We will add aspirin 81 mg as its not on her current med reconciliation and it was to be added per vascular surgery's recommendations -Continue home statin -Speech, PT, OT consultation Hyperlipidemia -Continue home statin GERD -Continue home PPI Hypertension -Continue home metoprolol -Goal blood pressure should be less than 130/80 -Pressure on presentation was slightly elevated however will monitor given the acute setting -May need additional antihypertensives depending on blood pressure control during her hospital course Carotid artery disease -Minimal -No surgical plans -Restart aspirin Persistent atrial fibrillation -Patient is currently rate controlled -Continue metoprolol -Continue Coumadin -Patient is therapeutic at 2.3 -Repeat a.m. INR -This is managed by her primary care physician DVT prophylaxis -Fully anticoagulated CODE STATUS -Full code as per discussion with patient on admission Charges/Coding Visit Charges Inpatient E&M: 94008 Init Hosp L2 12/27/22 1850 <Electronically signed by Lynn Horn DO> Cosigner Signature (if applicable): CC: Dr. Rosemary Doran MD; Dr. Lynn Horn DO~ Signed [facility] Work Phone: [phone]) 395-740409-14-2023 Discharge summary Author María Crane [facility] December 12, 2022 1:40pm Note Date/Time December 12, 2022 1:40pm [facility] Physical Therapy Health[address] [place] [address] / REHABILITATION SERVICES DISCHARGE SUMMARY MR#: [id number] Acct: [id number] Name: EZRA GONZALEZ Rep #: [id number] : 1935 87 From: María Cooley Referring Dr.: Dr. Anant Juarez MD Status: REG RCR Insurance: [facility] [id number] SELF PAY INSURANCE Patient Information Patient Information: EZRA GONZALEZ was seen in my office for initial evaluation on 10/22/22. The following Plan of Care was established for this patient: POC Established Initial Frequency: 2x /Week Initial Duration: 4 Weeks Anticipated Interventions Patient/Client Instruction: Educate patient on: Benefits of Fitness Program Therapeutic Exercise to Include: Strength training, Endurance training, Balance training, Agility training, Body mechanics, Postural training, Flexibilty training, Gait and locomotor training, Neuromotor development, Dynamic Lumbar Stabilization and Scapular Strength/Stabilization For the Purpose of:: To improve muscle performance and motor function Last Seen Last Seen: This patient was last seen in our office . Pertinent comments regarding their Physical therapy will appear below: Patient did not attend therapy after IE- appropriate to be d/c and return to MD for further evaluation PRN. At this point I will be discontinuing this patient from physical therapy. I would be happy to see this patient again in the future if found appropriate by the physician. Thank you! María Crane, DPT Balance/Gait/Functional tests Balance/Special Test Scores Functional Gait Assessment Score: 12 % Disability: 60.0000 Lower Extremity Functional Score: 39 <Electronically signed by María Crane DPT> 12/12/22 1340 CC: Dr. Rosemary Doran MD; Dr. Anant Juarez MD ~ ELR Signed [facility] Work Phone: [phone] 911-986511-17-2007 Evaluation note* Diagnosis Onset Date Resolution Status Chronic diastolic (congestive) heart failure chronic Essential (primary) hypertension chronic Paroxysmal atrial fibrillation chronic History of coronary artery stent placement February 142006 resolved [facility] Work Phone: [phone] 984-472811-17-2007 Evaluation note* Diagnosis Onset Date Resolution Status Chronic diastolic (congestive) heart failure chronic Essential (primary) hypertension chronic History of coronary artery stent placement February 142006 resolved Brain TIA resolved Carotid stenosis acute Difficulty with speech acute Dysarthria resolved Polyneuropathy acute [facility] Work Phone: [phone] Evaluation note* Diagnosis Onset Date Resolution Status Chronic diastolic (congestive) heart failure chronic Essential (primary) hypertension chronic History of coronary artery stent placement February 142006 resolved Brain TIA resolved Carotid stenosis acute Difficulty with speech acute Dysarthria resolved Abnormality of gait and mobility acute Carotid stenosis acute Dementia acute Polyneuropathy acute Transient ischemic attack re solved [facility] Work Phone: [phone] Evaluation note* Diagnosis Onset Date Resolution Status Longstanding persistent atrial fibrillation acute Essential (primary) hypertension chronic History of coronary artery stent placement February 142006 resolved Dementia acute Epilepsy acute Polyneuropathy acute Transient ischemic attack re solved [facility] Work Phone: Consult note Author Chucky Carney [facility] June 16, 2023 10:15am Note Date/Time June 16, 2023 10: 14am [facility] Medical Records Department [address] [place] [address] Consultation - Orthopedics 06/16/23 1012 MR#: [id number] Acct: [id number] Name: EZRA GONZALEZ Rep #:[id number] : 1935 87 From: Chucky Carney MD PCP: Dr. Rosemary Doran MD Status:REG ER Location: ED HPI Consult Data Date of Consult: 06/16/23 HPI Narrative HPI Narrative: EZRA GONZALEZ, is a 87 F who presents with a right distal humerus fracture. Patient apparently is in snf there a fall. According to the ED physician Dr. Mack who called me today this is a closed neurovascularly intact injury. 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) Osteoarthritis Paroxysmal atrial fibrillation Persistent atrial fibrillation Pleural effusion on right (09/2019) Spinal stenosis Type 2 diabetes mellitus Home Medications multivitamin 1 cap PO DAILY 12/10/19 [History Last Taken 12/27/22] metoprolol succinate 25 mg tablet,extended release 24 hr 25 mg PO BID #90 tabs 05/16/22 [Rx Last Taken 12/27/22] warfarin 2.5 mg tablet 2.5 mg PO DAILY 10/15/22 [History Last Taken 12/26/22] omeprazole 20 mg capsule,delayed release 20 mg PO DAILY reflux 11/14/22 [History Last Taken 12/27/22] atorvastatin 40 mg tablet 40 mg PO QHS 01/20/23 [History Last Taken Unknown] donepezil 10 mg tablet 10 mg PO QHS #30 tabs 04/30/23 [Rx Last Taken Unknown] ascorbic acid (vitamin C) 250 mg tablet 250 mg PO DAILY 05/19/23 [History Last Taken Unknown] diphenhydramine HCl 25 mg tablet (Allergy (diphenhydramine)) 25 mg PO QHS PRN 05/19/23 [History Last Taken Unknown] lamotrigine 25 mg tablet 50 mg (2 x 25 mg) PO BID #120 tabs 05/19/23 [Rx Last Taken Unknown] Allergy/AdvReac Type Severity Reaction Status Date / Time latex Allergy rash Verified 05/19/23 11:28 amiodarone AdvReac Severe Hair Verified 05/19/23 11:28 falling out in gobs atorvastatin [From Lipitor] AdvReac myalgia Verified 05/19/23 11:28 codeine AdvReac Nausea Verified 05/19/23 11:28 meperidine [From Demerol] AdvReac Nausea/Vom/ Verified 05/19/23 11:28 Diarrhea rosuvastatin [From Crestor] AdvReac myalgia Verified 05/19/23 11:28 Family History Father CAD (coronary artery disease) Brother CAD (coronary artery disease) Surgical History History of coronary artery stent placement (02/14/07) History of knee replacement History of kyphoplasty (~05/2020) History of left heart catheterization (12/27/19) History of left hip replacement History of radiofrequency ablation procedure for cardiac arrhythmia (2011) History of repair of rotator cuff Social History housing: assisted living facility Smoking Status: Former smoker how long ago did patient quit smokin years ago alcohol intake: former substance use type: does not use caffeine: No Vital Signs Vital Signs Vital Signs: 06/16/23 08:33 06/16/23 08:39 Temperature 96.4 F L Temperature Source Temporal Pulse Rate 76 Respiratory Rate 18 Respiratory Effort Normal Respiratory Depth Normal Respiratory Pattern Normal Blood Pressure 170/88 H Blood Pressure Mean 115 Pulse Ox 95 Oxygen Delivery Method Room Air Room Air Weight Weight: 186 lb 15.232 oz Body Mass Index (BMI) 33.1 Lab / Micro Data 06/16/23 08:53 06/16/23 08:53 Labs: Laboratory Results - last 24 hr 06/16/23 08:53: WBC 16.8 H, RBC 4.72, Hgb 13.6, Hct 42.6, MCV 90.3, MCH 28.8, MCHC 31.9 L, RDW Std Deviation 43.9, RDW Coeff of Sumeet 13.3, Plt Count 414, MPV 9.9, Immature Gran % (Auto) 0.500, Neut % (Auto) 67.8, Lymph % (Auto) 23.0, Crawford% (Auto) 7.0, Eos % (Auto) 1.3, Baso % (Auto) 0.4, Absolute Neuts (auto) 11.4 H,Absolute Lymphs (auto) 3.86, Nucleated RBC % 0, PT 24.3 H, INR 2.2, Sodium 140, Potassium 3.4 L, Chloride 104, Carbon Dioxide 31.0, Anion Gap 5, BUN 24 H, Creatinine 1.15 H, Estim Creat Clear Calc 35.56, Est GFR (MDRD) Af Amer 57 L, Est GFR (MDRD) Non-Af 47 L, BUN/Creatinine Ratio 20.9 H, Glucose 191 H, Calcium 8.8 Imaging Radiology Impression Brain CT 06/16/23 08:34 IMPRESSION: Chronic involutional changes of the brain. Electronically Signed: Mio Gipson MD at 9:27 EDT , Chest X-Ray 06/16/23 09:15 IMPRESSION: Stable increased markings at the lung bases suggestive of bibasilar scarring with blunting of both costophrenic angles. Electronically Signed: Mio Gipson MD at 9:32 EDT , Elbow X-Ray 06/16/23 09:15 IMPRESSION: Comminuted slightly displaced supracondylar fracture of the distal humerus with extension to the medial epicondyle. Joint effusion and soft tissue swelling. Electronically Signed: Mio Gipson MD at 9:30 EDT , Assessment & Plan Assessment/Plan (1) Closed fracture of right distal humerus: PLAN: 87-year-old female with right distal humerus fracture. Per the ED physician this is closed neurovascularly intact. This is not a surgery I routinely perform and the patient is a low demand elderly female with a distal humerus fracture may even benefit from a total elbow arthroplasty vs ORIF. Thiswill have to be referred to a different surgeon unfortunately not myself they should be in the meantime put into a splint and referred as an outpatient. Dr. Mack understands no further questions or concerns. 06/16/23 1015 <Electronically signed by Chucky Carney MD> Cosigner Signature (if applicable): CC: Dr. Rosemary Doran MD~ Signed [facility] Work Phone: Discharge summary Author Neri Mitchell [facility] November 14, 2022 11:57am Note Date/Time November 14, 2022 11 :10am [facility] Medical Records Department [address] [place] [address] Emergency Department Summary 11/14/22 MR#: [id number] Acct: [id number] Name: EZRA GONZALEZ Rep #:[id number] : 1935 87 From: Neri Mitchell MD PCP: Dr. Rosemary Doran MD Status:REG ER Location: ED HPI History of Present Illness Chief Complaint: Stroke Alert Informant: patient Narrative Narrative: Patient seen around 11 AM, last known well 829, she was seen at breakfast at assisted living doing just fine. Her significant other was with her when this occurred, she started having weakness on the right side according to report, along with trouble speaking. She denies having any weakness or tingling right now. She denies a headache. She is on warfarin has history of TIAs. 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) Osteoarthritis Paroxysmal atrial fibrillation Persistent atrial fibrillation Pleural effusion on right (09/2019) Spinal stenosis Type 2 diabetes mellitus Home Medications simvastatin 20 mg tablet 20 mg PO DAILY 10/11/19 [History Last Taken Unknown] lisinopril 5 mg tablet 5 mg PO DAILY 12/10/19 [History Last Taken 06/21/20] multivitamin 1 cap PO DAILY 12/10/19 [History Last Taken Unknown] ascorbate calcium (vitamin C) 500 mg tablet 500 mg PO DAILY 01/31/21 [History Last Taken Unknown] melatonin 10 mg capsule 10 mg PO HS PRN 04/16/22 [History Last Taken Unknown] metoprolol succinate 25 mg tablet,extended release 24 hr 25 mg PO BID #90 tabs 05/16/22 [Rx Last Taken Unknown] donepezil 10 mg tablet 10 mg PO QHS #30 tabs 09/18/22 [Rx Last Taken Unknown] donepezil 5 mg tablet 5 mg PO QHS #30 tabs 09/18/22 [Rx Last Taken Unknown] warfarin 2.5 mg tablet 2.5 mg PO DAILY 10/15/22 [History Last Taken Unknown] Allergy/AdvReac Type Severity Reaction Status Date / Time latex Allergy rash Verified 10/15/22 09:31 amiodarone AdvReac Severe Hair Verified 10/15/22 09:31 falling out in gobs atorvastatin [From Lipitor] AdvReac myalgia Verified 10/15/22 09:31 codeine AdvReac Nausea Verified 10/15/22 09:31 meperidine [From Demerol] AdvReac Nausea/Vom/ Verified 10/15/22 09:31 Diarrhea rosuvastatin [From Crestor] AdvReac myalgia Verified 10/15/22 09:31 Family History Father CAD (coronary artery disease) Brother CAD (coronary artery disease) Surgical History History of coronary artery stent placement (02/14/07) History of knee replacement History of kyphoplasty (~05/2020) History of left heart catheterization (12/27/19) History of left hip replacement History of radiofrequency ablation procedure for cardiac arrhythmia (2011) History of repair of rotator cuff Social History Smoking Status: Former smoker how long ago did patient quit smokin years ago alcohol intake: former substance use type: does not use caffeine: No ROS ROS ED Constitutional Constitutional ED: Denies chills or fever(s) Eyes Eyes: Denies change in vision or diplopia ENT ENT ED: Denies rhinorrhea or sore throat Cardiovascular Cardiovascular: Denies chest pain or palpitations Respiratory/Chest Respiratory/Chest: Denies cough or dyspnea Gastrointestinal Gastrointestinal: Denies abdominal pain, diarrhea, nausea or vomiting Genitourinary Genitourinary ED: Denies dysuria or hematuria Musculoskeletal Musculoskeletal: Denies back pain or neck pain Integumentary Denies abscess or rash Neurologic Neurologic: Reports as per HPI, abnormal speech and weakness; Denies headache(s)or paresthesias Psychiatric Psychiatric: Denies anxiety or suicidal thoughts EXAM Physical Exam Const Vital Signs: 11/14/22 11:02 11/14/22 11:01 11/14/22 11:07 Temperature 97.8 F 97.8 F Temperature Source Temporal Temporal Pulse Rate 88 87 Respiratory Rate 14 14 Blood Pressure 171/107 H 171/101 H Blood Pressure Mean 128 124 Pulse Ox 95 95 Oxygen Delivery Method Room Air Room Air Room Air 11/14/22 11:07 11/14/22 11:37 Temperature 97.6 F L 97.6 F L Temperature Source Temporal Temporal Pulse Rate 86 87 Respiratory Rate 14 14 Blood Pressure 138/96 H 150/71 H Blood Pressure Mean 110 97 Pulse Ox 98 98 Oxygen Delivery Method Room Air Room Air Positive well nourished and well developed General Appearance ED: well developed and NAD HEENT Reports moist mucous membranes normocephalic and atraumatic Eyes PERRL and EOMs intact bilaterally Neck full ROM and supple Resp normal respiratory effort and clear to auscultation bilaterally Cardio Rate: Negative for tachycardic Rhythm: abnormal rhythm irregularly irregular GI non-tender and non-distended Auscultation: normoactive bowel sounds Palpation: soft Back/Spine no CVA tenderness General Back: other FROM Extremity normal to inspection General Extremety ED: Negative for edema, pulses abnormal or tenderness General Extremity: Negative for edema or pulses abnormal Neuro oriented x3, CN's II-XII intact bilaterally and no sensory deficits noted Neuro Narrative: Aphasic. Follows commands. Wells Coma Scale: document GCS findings Spontaneous Obeys Commands Oriented 15 Sensorium / Orientation: awake and alert Motor Exam: strength 5/5 throughout Psych mental status grossly normal Skin no rashes or lesions noted and no wounds NIHSS NIHSS Initial: 1a Level of Consciousness: 0 1b LOC Questions (Score 2 if aphasic/stupor): 1 1c LOC Commands (Only score 1st attempt): 0 2 Best Gaze (If aphasic, use reflexive mvmts.): 0 3 Visual: 0 4 Facial Palsy: 0 5 Motor Arm Right (UN = amputation/fusion): 0 5 Motor Arm Left: 0 6 Motor Leg Right: 0 6 Motor Leg Left: 0 7 Limb ataxia (Only + if out of proportion): 0 8 Sensory (Aphasia/stupor=0 or 1, coma=2): 0 9 Best Language: 2 10 Dysarthria (mute, coma=2, intubated=UN): 0 11 Extinction and Inattention (only scored if +): 0 Total Score: 3 MDM MDM MDM Narrative Medical decision making narrative: Stroke alert was called, her plain CT was negative the CTA was negative for LVO,her INR is 1.8, since she is above 1.7 she is not a candidate for thrombolytics. When I reevaluated her while the stroke neurologist was evaluating her, her aphasia is resolved and she feels completely better and she is able to speak normally now. Her NIHSS is 0 and reevaluation. Consistent with TIA. Plan is for admission, no need for transfer and again not a thrombolytic candidate. Lab Data Attestation: I reviewed the patient's lab results. Labs: Laboratory Results - last 24 hr 11/14/22 11/14/22 11:04 11:10 WBC 9.4 RBC 4.79 Hgb 14.3 Hct 44.8 MCV 93.5 MCH 29.9 MCHC 31.9 L RDW Std Deviation 44.7 H RDW Coeff of Sumeet 13.0 Plt Count 313 MPV 10.6 Immature Gran % (Auto) 0.300 Neut % (Auto) 64.0 Lymph % (Auto) 24.9 Crawford % (Auto) 7.8 Eos % (Auto) 2.4 Baso % (Auto) 0.6 Absolute Neuts (auto) 6.0 Absolute Lymphs (auto) 2.35 Nucleated RBC % 0 PT 21.3 H INR 1.8 APTT 43.3 H Sodium 138 Potassium 4.0 Chloride 104 Carbon Dioxide 28.0 Anion Gap 6 BUN 14 Creatinine 1.14 H Estim Creat Clear Calc 28.76 Est GFR (MDRD) Af Amer 58 L Est GFR (MDRD) Non-Af 48 L BUN/Creatinine Ratio 12.3 Glucose 135 H Calcium 9.0 Troponin I High Sens 10 POC Glucose 136 H Radiography Chest X-Ray - ED: 1 View, Read by ED Physician, No Acute Disease, Chronic Changes and No Infiltrates Diagnostic Testing: Clinical Impression(s) from Imaging Studies Brain CT 11/14/22 11:07 IMPRESSION: No acute intracranial process identified. Moderate chronic involutional and white matter changes. Electronically Signed: Ban Avila MD at 11:23 EDT Reading Location ID and State: [facility] / [place] Tel , Service support , ADDENDUM: 11/14/22 1134 IMPRESSION: No acute intracranial process identified. Moderate chronic involutional and white matter changes. N.B. : The above Results were Read Back by Ban Avila MD to Neri Mitchell MD, and understanding confirmed on 11/14/2022 11:27:40 (ET). Electronically Signed: Ban Avila MD at 11:23 EDT , Head/Neck CTA 11/14/22 11:07 IMPRESSION: No evidence for significant stenosis or occlusion in the carotid or vertebral arteries of the neck. No evidence for large vessel occlusion the [place]. N.B. : The above Results were Read Back by Ban Avila MD to Neri Mitchell MD, and understanding confirmed on 11/14/2022 11:41:26 (ET). Electronically Signed: Ban Avila MD at 11:41 EDT , ADDENDUM: 11/14/22 1148 IMPRESSION: No evidence for significant stenosis or occlusion in the carotid or vertebral arteries of the neck. No evidence for large vessel occlusion the [place]. N.B. : The above Results were Read Back by Ban Avila MD to Neri Mitchell MD, and understanding confirmed on 11/14/2022 11:41:26 (ET). Electronically Signed: Ban Avila MD at 11:41 EDT , My interpretation of the CT agrees with that of the radiologist. Rhythm Strip Rhythm Strip: A-fib Rate: 85 Ectopy: None EKG Initial EKG: Attestation: I personally reviewed and interpreted this EKG as follows: Interpretation: No Acute Injury Pattern and Atrial Fibrillation Management Discussion w/another healthcare provider: Hospitalist, Cosmetic Sales Advisor (Stroke neurology Dr. Tamez) and Radiologist (At 1121 for NCCT, negative for bleed) Stroke Documentation Questions Stroke Team Activated: Yes Critical Care Time Critical Care Time: Yes Critical care time (excluding procedures): 30-74 minutes (37 min), Including time spent:, Discussing w/Patient &/or Family/Abstracter, Discussing w/Consultants, Arranging Admission or Transfer and Performing Direct Patient Care at Bedside Discharge Plan Dx/Rx/DC Orders Clinical Impression: Brain TIA, Paroxysmal atrial fibrillation, Subtherapeutic international normalized ratio (INR) Disposition Disposition: Acute Care Hospital [facility] What to do if you have Problems For any increased pain, shortness of breath, bleeding, nausea or vomiting, chestpain, or any unexpected problems, contact your Primary Care Provider. Call [facility] ([phone]) or report to the closest Emergency Room. Call 911 if necessary. 11/14/22 1157 <Electronically signed by Neri Mitchell MD> Cosigner Signature (if applicable): CC: Dr. Rosemary Doran MD ~ Signed [facility] Work Phone: Discharge summary Author Sae Carballo [facility] December 28, 2022 11:09am Note Date/Time December 28, 2022 11:08am [facility] Medical Records Department [address] [place] [id number] Instructions for Home/Discharge Instructions 12/28/22 1107 MR#: [id number] Acct: [id number] Name: EZRA GONZALEZ Rep #:[id number] : 1935 87 From: [place] MD PCP: Dr. Rosemary Doran MD Status:ADM MARIELOS Discharge Instructions Diet Discharge Diet: Low fat / Low cholesterol Activity Discharge Activity: Return to Normal Activity Dressing / Incision Call your doctor if you observe: Fever of 101 or Higher, Shortness of breath, Dizziness, Fainting spells, Swelling in the ankles, Chest pain and Increased palpitations (irregular heartbeat) Follow Up Care Test Results: Test results from this visit will be discussed in further detail at your follow- up appointment, if applicable. Discharge Plan Admission Admit Date/Time: 12/27/22 17:04 Attending Provider: Sae Carballo Primary Care Provider: Rosemary Doran Consulting Providers: Lynn Horn Discharge Orders/Prescriptions Prescriptions: New aspirin 81 mg Tablet,Chewable 81 mg PO BREAKFAST 30 Days Qty: 30 0RF Continued multivitamin capsule 1 cap PO DAILY ascorbate calcium (vitamin C) 500 mg tablet 500 mg PO DAILY Hold Instructions: Order Completed warfarin 2.5 mg tablet 2.5 mg PO DAILY Patient Comments: TAKE 1 TABLET BY MOUTH ONCE DAILY Rx Instructions: Managed by PCP donepezil 10 mg tablet 10 mg PO QHS Qty: 30 5RF Rx Instructions: Begin after completing one month of treatment of donepezil 5mg nightly simvastatin 20 MG tablet 20 mg PO DAILY diphenhydramine HCl [Allergy] 25 mg tablet 25 mg PO QHS PRN (Reason: allergy symptoms) omeprazole 20 mg capsule,delayed release(DR/EC) 20 mg PO DAILY metoprolol succinate 25 mg tablet extended release 24 hr 25 mg PO BID Qty: 90 3RF Referrals / Follow Up: Rosemary Doran MD [Primary Care Provider] - Within 1 Week Disposition Disposition (needs filled in before D/C Order can be placed): Home, Self Care 12/28/22 1109<Electronically signed by Sae Carballo MD>Sae Carballo MD CC: Dr. Rosemary Doran MD; Dr. Lynn Horn DO ~ Signed [facility] Work Phone: evaluation note* Diagnosis Onset Date Resolution Status Atherosclerotic heart diseas e of [place] coronary artery without angina pectoris chronic Chronic diastolic (congestive) heart failure chronic Essential (primary) hypertension chronic Hyperlipidemia chronic Paroxysmal atrial fibrillation chronic [facility] Work Phone: Evaluation note* Diagnosis Onset Date Resolution Status Abnormality of gait and mobility acute Carotid stenosis acute Dementia acute Polyneuropathy acute Transient ischemic attack re solved [facility] Work Phone: Evaluation note* Diagnosis Onset Date Resolution Status Abnormality of gait and mobility acute Carotid stenosis acute Dementia acute Polyneuropathy acute Transient ischemic attack re solved Chronic diastolic (congestive) heart failure chronic Essential (primary) hypertension chronic Paroxysmal atrial fibrillation chronic History of coronary artery stent placement February 142006 resolved [facility] Work Phone: Evaluation note* Diagnosis Onset Date Resolution Status Abnormality of gait and mobility acute Carotid stenosis acute Dementia acute Polyneuropathy acute Transient ischemic attack re solved Chronic diastolic (congestive) heart failure chronic Essential (primary) hypertension chronic Paroxysmal atrial fibrillation chronic History of coronary artery stent placement February 142006 resolved Brain TIA acute Subtherapeutic international normalized ratio (INR) acute Paroxysmal atrial fibrillation chronic [facility] Work Phone: Evaluation note* Diagnosis Onset Date Resolution Status Abnormality of gait and mobility acute Carotid stenosis acute Dementia acute Polyneuropathy acute Transient ischemic attack re solved Chronic diastolic (congestive) heart failure chronic Essential (primary) hypertension chronic History of coronary artery stent placement February 142006 resolved Brain TIA resolved Carotid stenosis acute [facility] Work Phone: Evaluation note* Diagnosis Onset Date Resolution Status Abnormality of gait and mobility acute Carotid stenosis acute Dementia acute Polyneuropathy acute Transient ischemic attack re solved Chronic diastolic (congestive) heart failure chronic Essential (primary) hypertension chronic History of coronary artery stent placement February 142006 resolved Brain TIA resolved Carotid stenosis acute Difficulty with speech acute Dysarthria acute [facility] Work Phone: Evaluation note* Diagnosis Onset Date Resolution Status Brain TIA resolved Carotid stenosis acute Difficulty with speech acute Dysarthria resolved Abnormality of gait and mobility acute Carotid stenosis acute Dementia acute Polyneuropathy acute Transient ischemic attack re solved [facility] Work Phone: evaluation note* Diagnosis Onset Date Resolution Status Dementia acute Epilepsy acute Polyneuropathy acute Transient ischemic attack re solved [facility] Work Phone: Evaluation note* Diagnosis Onset Date Resolution Status Dementia acute Epilepsy acute Polyneuropathy acute Transient ischemic attack re solved Longstanding persistent atrial fibrillation acute Essential (primary) hypertension chronic History of coronary artery stent placement February 142006 resolved Dementia acute Epilepsy acute Polyneuropathy acute Transient ischemic attack re solved [facility] Work Phone: Evaluation note* Diagnosis Closed displaced fracture of medial condyle of right humerus, initial encounter- Primary Closed displaced fracture of medial condyle of right humerus, initial encounter [facility] Additional Instructions Your work-up today does not show signs of heart attack or heart damage. Your Coumadin level/INR is therapeutic at 2.7. Please follow-up with your family doctor for repeat evaluation or return to the ER if you have any further [facility] Work Phone: Hospital Discharge instructionsAmbulatory Orders* Physical Therapy Referral Location: None Selected [facility] Work Phone: Hospital Discharge instructions Additional Instructions Will need to follow-up Lamictal level since it is a send out. Recommend follow- up appointment with her neurologist Dr. [facility] Work Phone: Reason for referral (narrative)No reason for referral information availableWKettering Health [facility] Work Phone: Summary Purpose Family History Relationship Condition Age at Onset Recorded Date/T maggy father Coronary artery disease Unknown brother Coronary artery disease Unknown Advance Directives Advance Directive Response Recorded Date/ Time Advance Directives Yes November 10:13am Living Will No February 11 12:11am Power of Ship Surveyor No February 11, 2022 12:11am Advance Directive Response Recorded Date/ Time Advance Directives Yes November 11:13am Living Will No February 11 022 1:11am Power of Ship Surveyor No February 11, 2022 1:11am Advance Directive Response Recorded Date/ Time Advance Directives Yes November 11:13am Living Will No September 08, 2022 3:33pm Power of Ship Surveyor No September 08 3:33pm Advance Directive Response Recorded Date/ Time Advance Directives Yes November 11:13am Living Will No November 14 11:07am Power of Ship Surveyor No November 14 023 11:07am Advance Directive Response Recorded Date/ Time Name of Medical Power of Ship Surveyor Ty nguyen November 18, 2022 7:55am Advance Directives Yes November 11:13am Living Will Yes November 18 7:55am Power of Ship Surveyor Yes November 18 023 7:55am Name of Medical Power of Ship Surveyor Wilfredo [place] November 14, 2022 1:26pm Advance Directive Response Recorded Date/ Time Name of Medical Power of Ship Surveyor Ty nguyen November 18, 2022 7:55am Name of Medical Power of Ship Surveyor Wilfredo [place] November 14, 2022 1:26pm Advance Directives Yes November 11:13am Living Will No December 27, 2022 7:16pm Power of Ship Surveyor No November 7:16pm Advance Directive Response Recorded Date/ Time Name of Medical Power of Ship Surveyor Ty nguyen November 18, 2022 6:55am Name of Medical Power of Ship Surveyor Wilfredo [place] November 14, 2022 12:26pm Advance Directives Yes November 10:13am Living Will No December 27, 2022 6:16pm Power of Ship Surveyor No November 6:16pm Advance Directive Response Recorded Date/ Time Advance Directives Yes November 10:13am Living Will No December 27, 2022 6:16pm Power of Ship Surveyor No November 6:16pm Advance Directive Response Recorded Date/ Time Name of Medical Power of Ship Surveyor SON--JACK June 16, 2023 8:32am Advance Directives Yes November 11:13am Living Will Yes June 16, 2023 8:32am Power of Ship Surveyor Yes June 15 8:32am Latest Code Status on File Code Status Date Activated Date Inactivated Comments Full Code 06/16/2023 4:39 PM 06/20/2023 7:46 PM Advance Directive Response Recorded Date/ Time Living Will Yes June 16, 2023 7:32am Power of Ship Surveyor Yes June 15 7:32am Advance Directives Yes November 10:13am Advance Directive Response Recorded Date/ Time Living Will Yes June 16, 2023 8:32am Do you have a Healthcare Power of Ship Surveyor? Yes June 16, 2023 8:32am Advance Directives Yes November 11:13am Advance Directive Response Recorded Date/ Time Living Will No December 27, 2022 7:16pm Do you have a Healthcare Power of Ship Surveyor? No December 27, 2022 7:16pm Living Will Yes June 16, 2023 8:32am Do you have a Healthcare Power of Ship Surveyor? Yes June 16, 2023 8:32am Advance Directives Yes November 11:13am Advance Directive Response Recorded Date/ Time Living Will No December 27, 2022 7:16pm Do you have a Healthcare Power of Ship Surveyor? No December 27, 2022 7:16pm Do you have a Healthcare Power of Ship Surveyor? Yes September 08, 2024 12:26pm Advance Directives Yes November 11:13am History of Past Illness Problem Noted Date Resolved Date Hemarthrosis involving knee joint 02/09/2016 11/13/2016 Problem Noted Date Resolved Date Hemarthrosis involving knee joint 02/09/2016 11/13/2016 Problem Noted Date Resolved Date Hemarthrosis Involving Knee Joint 02/09/2016 11/13/2016 Chief Complaint and Reason for Visit Chief Complaint 6 M FU CHEST PAIN Reason for Visit Atherosclerotic hear t disease of [place] coronary artery without angina pectoris Chronic diastolic (congestive) heart failure Essential (primary) hypertension Hyperlipidemia Paroxysmal atrial fibrillation Chief Complaint CHEST PAIN 1 Y FU BACK PAIN Reason for Visit Chronic diastolic (c ongestive) heart failure Essential (primary) hypertension Paroxysmal atrial fibrillation History of coronary artery stent placement Chief Complaint 1 Y FU BACK PAIN Reason for Visit Chronic diastolic (c ongestive) heart failure Essential (primary) hypertension Paroxysmal atrial fibrillation History of coronary artery stent placement Chief Complaint BACK PAIN TIA SYMPTOMS, HX OF DM, AFIB confusion buttermaker (current) use 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 EORDER FOR LABS FROM DR JUAREZ Consult Reason for Visit Abnormality of gait and mobility Carotid stenosis Dementia Polyneuropathy Transient ischemic attack Chief Complaint TIA SYMPTOMS, HX OF DM, AFIB confusion USP (current) use 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 EORDER FOR LABS FROM DR JUAREZ Consult LEFT ICA STENOSIS Reason for Visit Abnormality of gait and mobility Carotid stenosis Dementia Polyneuropathy Transient ischemic attack Chief Complaint TIA SYMPTOMS, HX OF DM, AFIB confusion USP (current) use 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 EORDER FOR LABS FROM DR JUAREZ Consult LEFT ICA STENOSIS 6 M FU W KAYAKING INSTRUCTOR per KAYAKING INSTRUCTOR GAIT,POLYNEUROPATHY,LUMBAR COMPRESSION FX/RX HERE GAIT DISORDER Reason for Visit Abnormality of gait and mobility Carotid stenosis Dementia Polyneuropathy Transient ischemic attack Chronic diastolic (congestive) heart failure Essential (primary) hypertension Paroxysmal atrial fibrillation History of coronary artery stent placement Chief Complaint TIA SYMPTOMS, HX OF DM, AFIB confusion USP (current) use 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 EORDER FOR LABS FROM DR JUAREZ Consult LEFT ICA STENOSIS 6 M FU W KAYAKING INSTRUCTOR per KAYAKING INSTRUCTOR GAIT,POLYNEUROPATHY,LUMBAR COMPRESSION FX/RX HERE GAIT DISORDER TIA Reason for Visit Abnormality of gait and mobility Carotid stenosis Dementia Polyneuropathy Transient ischemic attack Chronic diastolic (congestive) heart failure Essential (primary) hypertension Paroxysmal atrial fibrillation History of coronary artery stent placement Brain TIA Subtherapeutic international normalized ratio (INR) Paroxysmal atrial fibrillation Chief Complaint TIA SYMPTOMS, HX OF DM, AFIB confusion buttermaker (current) use 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 EORDER FOR LABS FROM DR JUAREZ Consult LEFT ICA STENOSIS 6 M FU W KAYAKING INSTRUCTOR per KAYAKING INSTRUCTOR GAIT,POLYNEUROPATHY,LUMBAR COMPRESSION FX/RX HERE GAIT DISORDER TIA TIA (cardiology) TIA (cardiology) tia Reason for Visit Abnormality of gait and mobility Carotid stenosis Dementia Polyneuropathy Transient ischemic attack Chronic diastolic (congestive) heart failure Essential (primary) hypertension Paroxysmal atrial fibrillation History of coronary artery stent placement Brain TIA Subtherapeutic international normalized ratio (INR) Paroxysmal atrial fibrillation Chief Complaint TIA SYMPTOMS, HX OF DM, AFIB confusion USP (current) use 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 EORDER FOR LABS FROM DR JUAREZ Consult LEFT ICA STENOSIS 6 M FU W KAYAKING INSTRUCTOR per KAYAKING INSTRUCTOR GAIT,POLYNEUROPATHY,LUMBAR COMPRESSION FX/RX HERE GAIT DISORDER TIA TIA (cardiology) TIA (cardiology) tia SENIOR CARE LAB WORK CONSULT-CAROTID STENOSIS Reason for Visit Abnormality of gait and mobility Carotid stenosis Dementia Polyneuropathy Transient ischemic attack Chronic diastolic (congestive) heart failure Essential (primary) hypertension History of coronary artery stent placement Brain TIA Carotid stenosis Chief Complaint TIA SYMPTOMS, HX OF DM, AFIB confusion buttermaker (current) use 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 EORDER FOR LABS FROM DR JUAREZ Consult LEFT ICA STENOSIS 6 M FU W KAYAKING INSTRUCTOR per KAYAKING INSTRUCTOR GAIT,POLYNEUROPATHY,LUMBAR COMPRESSION FX/RX HERE GAIT DISORDER TIA TIA (cardiology) TIA (cardiology) tia SENIOR CARE LAB WORK CONSULT-CAROTID STENOSIS LABWORK SENIOR CARE LABWORK Reason for Visit Abnormality of gait and mobility Carotid stenosis Dementia Polyneuropathy Transient ischemic attack Chronic diastolic (congestive) heart failure Essential (primary) hypertension History of coronary artery stent placement Brain TIA Carotid stenosis Chief Complaint TIA SYMPTOMS, HX OF DM, AFIB confusion buttermaker (current) use 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 EORDER FOR LABS FROM DR JUAREZ Consult LEFT ICA STENOSIS 6 M FU W KAYAKING INSTRUCTOR per KAYAKING INSTRUCTOR GAIT,POLYNEUROPATHY,LUMBAR COMPRESSION FX/RX HERE GAIT DISORDER TIA TIA (cardiology) TIA (cardiology) tia SENIOR CARE LAB WORK CONSULT-CAROTID STENOSIS LABWORK SENIOR CARE LABWORK DYARTHRIA DYARTHRIA Reason for Visit Abnormality of gait and mobility Carotid stenosis Dementia Polyneuropathy Transient ischemic attack Chronic diastolic (congestive) heart failure Essential (primary) hypertension History of coronary artery stent placement Brain TIA Carotid stenosis Difficulty with speech Dysarthria Chief Complaint LEFT ICA STENOSIS 6 M FU W KAYAKING INSTRUCTOR per KAYAKING INSTRUCTOR GAIT,POLYNEUROPATHY,LUMBAR COMPRESSION FX/RX HERE GAIT DISORDER TIA TIA (cardiology) TIA (cardiology) tia SENIOR CARE LAB WORK CONSULT-CAROTID STENOSIS LABWORK SENIOR CARE LABWORK DYARTHRIA DYARTHRIA DYARTHRIA SENIOR CARE LABWORK 4 month f/u EORDER Reason for Visit Chronic diastolic (c ongestive) heart failure Essential (primary) hypertension History of coronary artery stent placement Brain TIA Carotid stenosis Difficulty with speech Dysarthria Polyneuropathy Chief Complaint 6 M FU W KAYAKING INSTRUCTOR per KAYAKING INSTRUCTOR GAIT,POLYNEUROPATHY,LUMBAR COMPRESSION FX/RX HERE GAIT DISORDER TIA TIA (cardiology) TIA (cardiology) tia SENIOR CARE LAB WORK CONSULT-CAROTID STENOSIS LABWORK SENIOR CARE LABWORK DYARTHRIA DYARTHRIA DYARTHRIA SENIOR CARE LABWORK 4 month f/u EORDER Reason for Visit Chronic diastolic (c ongestive) heart failure Essential (primary) hypertension History of coronary artery stent placement Brain TIA Carotid stenosis Difficulty with speech Dysarthria Abnormality of gait and mobility Carotid stenosis Dementia Polyneuropathy Transient ischemic attack Chief Complaint TIA TIA (cardiology) TIA (cardiology) tia SENIOR CARE LAB WORK CONSULT-CAROTID STENOSIS LABWORK SENIOR CARE LABWORK DYARTHRIA DYARTHRIA DYARTHRIA SENIOR CARE LABWORK 4 month f/u EORDER SENIOR CARE LABWORK Reason for Visit Brain TIA Carotid stenosis Difficulty with speech Dysarthria Abnormality of gait and mobility Carotid stenosis Dementia Polyneuropathy Transient ischemic attack Chief Complaint SENIOR CARE LABWORK 4 month f/u EORDER SENIOR CARE LABWORK SENIOR CARE LAB WORK SENIOR CARE LABWORK Reason for Visit Dementia Epilepsy Polyneuropathy Transient ischemic attack Chief Complaint 4 month f/u EORDER SENIOR CARE LABWORK SENIOR CARE LAB WORK SENIOR CARE LAB WORK SENIOR CARE LABWORK 7 m fu 4 month f/u Reason for Visit Dementia Epilepsy Polyneuropathy Transient ischemic attack Longstanding persistent atrial fibrillation Essential (primary) hypertension History of coronary artery stent placement Dementia Epilepsy Polyneuropathy Transient ischemic attack Chief Complaint SENIOR CARE LABWORK SENIOR CARE LAB WORK SENIOR CARE LAB WORK SENIOR CARE LABWORK LABWORK 7 m fu 4 month f/u LABWORK Reason for Visit Longstanding persist ent atrial fibrillation Essential (primary) hypertension History of coronary artery stent placement Dementia Epilepsy Polyneuropathy Transient ischemic attack Chief Complaint SENIOR CARE LABWORK SENIOR CARE LAB WORK SENIOR CARE LAB WORK SENIOR CARE LABWORK LABWORK 7 m fu 4 month f/u LABWORK [place] Reason for Visit Longstanding persist ent atrial fibrillation Essential (primary) hypertension History of coronary artery stent placement Dementia Epilepsy Polyneuropathy Transient ischemic attack Chief Complaint SENIOR CARE LAB WOR K SENIOR CARE LAB WORK SENIOR CARE LABWORK LABWORK 7 m fu 4 month f/u LABWORK [place] LABWORK Reason for Visit Longstanding persist ent atrial fibrillation Essential (primary) hypertension History of coronary artery stent placement Dementia Epilepsy Polyneuropathy Transient ischemic attack Chief Complaint Admit Date SENIOR CARE LAB WORK February 05, 2024 5:00am SENIOR CARE LAB WORK March 04, 2024 5:00am SENIOR CARE LAB WORK March 08, 2024 5:00am [facility] LAB WORK March 10 4:00am LABWORK March 17, 2024 5:00am LABWORK March 19, 2024 5:00am LABWORK March 25, 2024 5:00am [facility] WORK March 26 5:00am [facility] WORK March 29 5:00am [facility] WORK April 05, 2024 5:00am [facility] LAB WORK April 06, 2024 5:00am LABWORK April 09, 2024 5 :00am [facility] LAB WORK April 14, 2024 4:00am [facility] WORK April 28, 2024 5:00am LABWORK May 05, 2024 5 :00am 8 mo fu May 10, 2024 2:34pm [facility] LAB WORK May 19 5:00am Reason for Visit Admit Date Dementia May 10, 2024 2:34pm Epilepsy May 10, 2024 2:34pm Transient ischemic attack May 10, 2024 2:34pm Chief Complaint Admit Date [facility] LAB WORK March 04, 2024 5:00am [facility] WORK March 08, 2024 5:00am [facility] LAB WORK March 10 4:00am LABWORK March 17, 2024 5:00am LABWORK March 19, 2024 5:00am LABWORK March 25, 2024 5:00am [facility] LAB WORK March 26 5:00am [facility] LAB WORK March 29 5:00am S[facility] LAB WORK April 05, 2024 5:00am SEN[facility] C[facility] LAB WORK April 06, 2024 5:00am LABWORK April 09, 2024 5 :00am SENIOR CARE LAB WORK April 14, 2024 4:00am SEN[facility] C[facility] LAB WORK April 28, 2024 5:00am LABWORK May 05, 2024 5 :00am 8 mo fu May 10, 2024 2:34pm SEN[facility] C[facility] LAB WORK May 12 5:00am S[facility] LAB WORK May 19 5:00am S[facility] LAB WORK June 09, 2024 5 :00am Chief Complaint Admit Date SEN[facility] C[facility] LAB WORK March 10 4:00am LABWORK March 17, 2024 5:00am LABWORK March 19, 2024 5:00am LABWORK March 25, 2024 5:00am SEN[facility] CARE LAB WORK March 26 5:00am SEN[facility] LAB WORK March 29 5:00am S[facility] LAB WORK April 05, 2024 5:00am S[facility] C[facility] LAB WORK April 06, 2024 5:00am LABWORK April 09, 2024 5 :00am S[facility] LAB WORK April 14, 2024 4:00am [facility] LAB WORK April 28, 2024 5:00am LABWORK May 05, 2024 5 :00am 8 mo fu May 10, 2024 2:34pm SEN[facility] C[facility] LAB WORK May 12 5:00am S[facility] LAB WORK May 19 5:00am S[facility] LAB WORK June 09, 2024 5 :00am S[facility] LAB WORK June 16, 2024 5 :00am 1 Y FU July 01, 2024 10:3 5am Reason for Visit Admit Date Dementia May 10, 2024 2:34pm Epilepsy May 10, 2024 2:34pm Transient ischemic attack May 10, 2024 2:34pm Longstanding persistent atrial fibrillat ion July 01, 2024 10:35am Essential (primary) hypertension July 012024 10:35am History of coronary artery stent placeme nt July 01, 2024 10:35am Chief Complaint Admit Date LABWORK March 25, 2024 5:00am [facility] LAB WORK March 26 5:00am [facility] LAB WORK March 29 5:00am S[facility] LAB WORK April 05, 2024 5:00am S[facility] C[facility] LAB WORK April 06, 2024 5:00am LABWORK April 09, 2024 5 :00am SEN[facility] CARE LAB WORK April 14, 2024 4:00am SEN[facility] C[facility] LAB WORK April 28, 2024 5:00am LABWORK May 05, 2024 5 :00am 8 mo fu May 10, 2024 2:34pm SENIOR CARE LAB WORK May 12 5:00am SEN[facility] C[facility] LAB WORK May 19 5:00am SEN[facility] C[facility] LAB WORK June 09, 2024 5 :00am S[facility] C[facility] LAB WORK June 16, 2024 5 :00am 1 Y FU July 01, 2024 10:3 5am SENIOR CARE LAB WORK July 19, 2024 4 :00am Chief Complaint Admit Date SENIOR C[facility] LAB WORK May 12 5:00am S[facility] LAB WORK May 19 5:00am SEN[facility] C[facility] LAB WORK June 09, 2024 5 :00am SEN[facility] C[facility] LAB WORK June 16, 2024 5 :00am 1 Y FU July 01, 2024 10:3 5am SENIOR CARE LAB WORK July 19, 2024 4 :00am SEN[facility] C[facility] LAB WORK August 18, 2024 5:0 0am SEIZURE September 08, 2024 12:2 0pm Reason for Visit Admit Date Longstanding persistent atrial fibrillat ion July 01, 2024 10:35am Essential (primary) hypertension July 012024 10:35am History of coronary artery stent placeme nt July 01, 2024 10:35am Chief Complaint Admit Date SEN[facility] C[facility] LAB WORK May 19 5:00am SEN[facility] CARE LAB WORK June 09, 2024 5 :00am SENIOR CARE LAB WORK June 16, 2024 5 :00am 1 Y FU July 01, 2024 10:3 5am SENIOR CARE LAB WORK July 19, 2024 4 :00am SENIOR CARE LAB WORK August 18, 2024 5:0 0am SEIZURE September 08, 2024 12:2 0pm Chief Complaint Admit Date SENIOR CARE LAB WORK May 19 5:00am SENIOR CARE LAB WORK June 09, 2024 5 :00am SENIOR CARE LAB WORK June 16, 2024 5 :00am 1 Y FU July 01, 2024 10:3 5am SENIOR CARE LAB WORK July 19, 2024 4 :00am SENIOR CARE LAB WORK August 18, 2024 5:0 0am SEIZURE September 08, 2024 12:2 0pm STROKE VS SEIZURE September 10, 2024 4:03 pm Additional Source Comments INFORMATION SOURCE (unrecogn ized section and content) DATE CREATED AUTHOR 02/04/2018 [facility] DATE CREATED AUTHOR AUTHOR'S ORGANIZ ATION 11/12/2019 [facility] DATE CREATED AUTHOR AUTHOR'S ORGANIZ ATION 06/26/2023 [facility] DATE CREATED AUTHOR AUTHOR'S ORGANIZ ATION 09/06/[address] [facility] Source Comments (unrecognize d section and content) In the event this informatio n is protected by the Federal Confidentiality of Alcohol and Drug Abuse Patient Records regulations: The Federal rules restrict any use of the information to criminally investigate or prosecute any alcohol or drug abuse patient.[facility] FoundationIn the event this information is protected by the Federal Confidentiality of Alcohol and Drug Abuse Patient Records regulations: The Federal rules restrict any use of the information to criminally investigate or prosecute any alcohol or drug abuse patient.[facility] FoundationIn the event this information is protected by the Federal Confidentiality of Alcohol and Drug Abuse Patient Records regulations: The Federal rules restrict any use of the information to criminally investigate or prosecute any alcohol or drug abuse patient.[facility] FoundationIn the event this information is protected by the Federal Confidentiality of Alcohol and Drug Abuse Patient Records regulations: The Federal rules restrict any use of the information to criminally investigate or prosecute any alcohol or drug abuse patient.[facility] FoundationIn the event this information is protected by the Federal Confidentiality of Alcohol and Drug Abuse Patient Records regulations: The Federal rules restrict any use of the information to criminally investigate or prosecute any alcohol or drug abuse patient.[facility] Reason for Visit (unrecogniz ed section and content) Reason Onset Date Comments Refill Request Refill Request 11/11/2019 Reason Comments Arm Injury Pt arrives via [employer] ambulance from [facility] with complaints of right elbow fracture. Patient was sent here for ortho consult. No pain on arrival. Arrives with right arm splinted. Specialty Diagnoses / Procedures Referred By Ana t Referred To Contact Diagnoses Closed displaced fracture of medial condyle of right humerus, initial encounter Procedures .. Jayshree Cortez MD [address] [place] [address] [facility] [address] [place] [id number] Referral ID Status Reason Start Date Expiration Date Visits Re quested Visits Authorized [id number] 1 1 Telephone Encounter - Anne Marie Salas - 10/12/2019 7:49 AM EDT Miscellaneous Notes (unrecog nized section and content) Pharmacy faxed requesting the following refill. Pending Prescriptions Disp Refills FUROSEMIDE 20 MG TABLET 90 tablet 0 Sig: TAKE ONE TABLET BY MOUTH EVERY DAY SHAHEEN: Yes Last refill: 01/21/2019 Patient last appointment: 09/22/2019 Patient next appointment: Visit date not found Patient Phone numbers: [phone] (home) Request is for script(s) to be escript to pharmacy. Anne Marie Morrison documented in this encounter Goals (unrecognized section and content) Goals may be documented in a n alternate sectionGoals may be documented in an alternate sectionGoals may be documented in an alternate sectionGoals may be documented in an alternate sectionGoals may be documented in an alternate sectionGoals may be documented in an alternate sectionGoals may be documented in an alternate sectionGoals may be documented in an alternate sectionGoals may be documented in an alternate sectionGoals may be documented in an alternate sectionGoals may be documented in an alternate sectionGoals may be documented in an alternate sectionGoals may be documented in an alternate sectionGoals may be documented in an alternate sectionGoals may be documented in an alternate sectionGoals may be documented in an alternate sectionGoals may be documented in an alternate sectionGoals may be documented in an alternate sectionGoals may be documented in an alternate sectionGoals may be documented in an alternate sectionGoals may be documented in an alternate section Care Teams (unrecognized sec tion and content) Team Status: Active Member Role Status Dates Dr. Chucky Ochoa DO Primary Care Provider Active Team Status: Inactive Member Role Status Dates Dr. Alexandra Hagen MD Primary Care Provider Active Start: May 19, 2024 End: May 19, 2024 Cesar MARTINEZ MD Attending Provider Active St art: May 19, 2024 End: May 19, 2024 Team Status: Inactive Member Role Status Dates Dr. Alexandra Hagen MD Primary Care Provider Active Start: June 09, 2024 End: June 09, 2024 Dr. Chucky MARTINEZ MD Attending Provider Active Start: June 09, 2024 End: June 09, 2024 Team Status: Inactive Member Role Status Dates Dr. Alexandra Hagen MD Primary Care Provider Active Start: June 16, 2024 End: June 16, 2024 Dr. Chucky MARTNIEZ MD Attending Provider Active Start: June 16, 2024 End: June 16, 2024 Team Status: Inactive Member Role Status Dates Dr. Alexandra Hagen MD Primary Care Provider Active Start: July 01, 2024 End: July 01, 2024 Dr. Alexandra Hagen MD Referring Provider Active Start: July 01, 2024 End: July 01, 2024 Dr. Cesar Cole MD Attending Provider Active S tart: July 01, 2024 End: July 01, 2024 Team Status: Inactive Member Role Status Dates Dr. Alexandra Hagen MD Primary Care Provider Active Start: July 19, 2024 End: July 19, 2024 Cesar MARTINEZ MD Attending Provider Active St art: July 19, 2024 End: July 19, 2024 Cesar MARTINEZ MD Referring Provider Active St art: July 19, 2024 End: July 19, 2024 Team Status: Inactive Member Role Status Dates Dr. Alexandra Hagen MD Primary Care Provider Active Start: August 18, 2024 End: August 18, 2024 Cesar MARTINEZ MD Attending Provider Active St art: August 18, 2024 End: August 18, 2024 Team Status: Inactive Member Role Status Dates Dr. Anoop Blackmon MD Referring Provider Active Sta rt: September 08, 2024 End: September 08, 2024 Dr. Anoop Blackmon MD Emergency Provider Active Sta rt: September 08, 2024 End: September 08, 2024 Dr. Chucky MARTINEZ MD Primary Care Provider Active Start: September 08, 2024 End: September 08, 2024 Team Status: Active Member Role Status Dates Dr. Chucky Ochoa DO Primary Care Provider Active Start: September 10, 2024 Dr. Teri Garcia DO Emergency Provider Active Start: September 10, 2024 Dr. Matthew Oro DO Admit Provider Active Start: September 10, 2024 Dr. Matthew Oro DO Attending Provider Active Start: September 10, 2024 Dr. Olivia Trinidad MD Other Provider Active Start: September 10, 2024 Dr. Janett French MD Other Provider Active Start: September 10, 2024 Julia Carpenter MD Other Provider Active Start : September 10, 2024 Keyshawn Swan MS Other Provider Active Start: J une 2024 Dr. Dmitriy Diop MD Other Provider Active Sta rt: September 10, 2024 Meagan Edmondson MD Other Provider Active Start: September 10, 2024 MAMADOU CANCINO MD Other Provider Active Start: J une 2024 Cara Batista MD Other Provider Active Start : September 10, 2024 Dr. Lorelei Pruett MD Other Provider Active Start : September 10, 2024 Robinson Mayorga MD Other Provider Active Start: September 10, 2024 Aura Thurman MD Other Provider Active Start: September 10, 2024 Team Status: Active Member Role Status Dates Dr. Chucky MARTINEZ MD Primary Care Provider Active Team Status: Inactive Member Role Status Dates Dr. Alexandra Hagen MD Primary Care Provider Active Start: May 19, 2024 End: May 19, 2024 Cesar MARTINEZ MD Attending Provider Active St art: May 19, 2024 End: May 19, 2024 Team Status: Inactive Member Role Status Dates Dr. Alexandra Hagen MD Primary Care Provider Active Start: June 09, 2024 End: June 09, 2024 Dr. Chucky MARTINEZ MD Attending Provider Active Start: June 09, 2024 End: June 09, 2024 Team Status: Inactive Member Role Status Dates Dr. Alexandra Hagen MD Primary Care Provider Active Start: June 16, 2024 End: June 16, 2024 Dr. Chucky MARTINEZ MD Attending Provider Active Start: June 16, 2024 End: June 16, 2024 Team Status: Inactive Member Role Status Dates Dr. Alexandra Hagen MD Primary Care Provider Active Start: July 01, 2024 End: July 01, 2024 Dr. Alexandra Hagen MD Referring Provider Active Start: July 01, 2024 End: July 01, 2024 Dr. Cesar Cole MD Attending Provider Active S tart: July 01, 2024 End: July 01, 2024 Team Status: Inactive Member Role Status Dates Dr. Alexandra Hagen MD Primary Care Provider Active Start: July 19, 2024 End: July 19, 2024 Cesar MARTINEZ MD Attending Provider Active St art: July 19, 2024 End: July 19, 2024 Cesar MARTINEZ MD Referring Provider Active St art: July 19, 2024 End: July 19, 2024 Team Status: Inactive Member Role Status Dates Dr. Alexandra Hagen MD Primary Care Provider Active Start: August 18, 2024 End: August 18, 2024 Cesar MRATINEZ MD Attending Provider Active St art: August 18, 2024 End: August 18, 2024 Team Status: Inactive Member Role Status Dates Dr. Anoop Blackmon MD Referring Provider Active Sta rt: September 08, 2024 End: September 08, 2024 Dr. Anoop Blackmon MD Emergency Provider Active Sta rt: September 08, 2024 End: September 08, 2024 Dr. Chucky MARTINEZ MD Primary Care Provider Active Start: September 08, 2024 End: September 08, 2024 Team Status: Active Member Role Status Dates Dr. Alexandra Hagen MD Primary Care Provider Active Team Status: Active Member Role Status Dates Dr. Alexandra Hagen MD Primary Care Provider Active Start: March 04, 2024 Dr. Chucky MARTINEZ MD Attending Provider Active Start: March 04, 2024 Team Status: Active Member Role Status Dates Dr. Alexandra Hagen MD Primary Care Provider Active Start: March 08, 2024 Dr. Chucky MARTINEZ MD Attending Provider Active Start: March 08, 2024 Team Status: Active Member Role Status Dates Dr. Alexandra Hagen MD Primary Care Provider Active Start: March 10, 2024 Dr. Chucky MARTINEZ MD Attending Provider Active Start: March 10, 2024 Dr. Chucky MARTINEZ MD Referring Provider Active Start: March 10, 2024 Team Status: Active Member Role Status Dates Dr. Alexandra Hagen MD Primary Care Provider Active Start: March 17, 2024 Dr. Chucky MARTINEZ MD Attending Provider Active Start: March 17, 2024 Team Status: Active Member Role Status Dates Dr. Alexandra Hagen MD Primary Care Provider Active Start: March 19, 2024 Dr. Chucky MARTINEZ MD Attending Provider Active Start: March 19, 2024 Team Status: Active Member Role Status Dates Dr. Alexandra Hagen MD Primary Care Provider Active Start: March 25, 2024 Dr. Chucky MARTINEZ MD Attending Provider Active Start: March 25, 2024 Team Status: Active Member Role Status Dates Dr. Alexandra Hagen MD Primary Care Provider Active Start: March 26, 2024 Dr. Chucky MARTINEZ MD Attending Provider Active Start: March 26, 2024 Team Status: Active Member Role Status Dates Dr. Alexandra Hagen MD Primary Care Provider Active Start: March 29, 2024 Dr. Chucky MARTINEZ MD Attending Provider Active Start: March 29, 2024 Team Status: Active Member Role Status Dates Dr. Alexandra Hagen MD Primary Care Provider Active Start: April 05, 2024 Dr. Chucky MARTINEZ MD Attending Provider Active Start: April 05, 2024 Team Status: Inactive Member Role Status Dates Dr. Alexandra Hagen MD Primary Care Provider Active Start: April 06, 2024 End: April 06, 2024 Dr. Chucky MARTINEZ MD Attending Provider Active Start: April 06, 2024 End: April 06, 2024 Team Status: Inactive Member Role Status Dates Dr. Alexandra Hagen MD Primary Care Provider Active Start: April 09, 2024 End: April 09, 2024 Dr. Chucky MARTINEZ MD Attending Provider Active Start: April 09, 2024 End: April 09, 2024 Team Status: Active Member Role Status Dates Dr. Alexandra Hagen MD Primary Care Provider Active Start: April 14, 2024 Dr. Chucky MARTINEZ MD Attending Provider Active Start: April 14, 2024 Dr. Chucky MARTINEZ MD Referring Provider Active Start: April 14, 2024 Team Status: Inactive Member Role Status Dates Dr. Alexandra Hagen MD Primary Care Provider Active Start: April 28, 2024 End: April 28, 2024 Dr. Chucky MARTINEZ MD Attending Provider Active Start: April 28, 2024 End: April 28, 2024 Team Status: Inactive Member Role Status Dates Dr. Alexandra Hagen MD Primary Care Provider Active Start: May 05, 2024 End: May 05, 2024 Cesar MARTINEZ MD Attending Provider Active St art: May 05, 2024 End: May 05, 2024 Team Status: Inactive Member Role Status Dates Dr. Rosemary Doran MD Referring Provider Active Start: May 10, 2024 End: May 10, 2024 Dr. Anant Juarez MD Attending Provider Active Start: May 10, 2024 End: May 10, 2024 Dr. Alexandra Hagen MD Primary Care Provider Active Start: May 10, 2024 End: May 10, 2024 Team Status: Active Member Role Status Dates Dr. Alexandra Hagen MD Primary Care Provider Active Start: May 12, 2024 Anant MARTINEZ MD Attending Provider Active Start: May 12, 2024 Team Status: Active Member Role Status Dates Dr. Alexandra Hagen MD Primary Care Provider Active Start: June 16, 2024 Dr. Chucky MARTINEZ MD Attending Provider Active Start: June 16, 2024 Team Status: Inactive Member Role Status Dates Dr. Rosemary Doran MD Primary Care Provider, Referrin g Provider Active Dr. Cesar Cole MD Attending Provider Active Team Status: Inactive Member Role Status Dates Dr. Rosemary Doran MD Primary Care Provider, Referrin g Provider Active Dr. Anant Juarez MD Attending Provider Active Team Status: Active Member Role Status Dates Dr. Rosemary Doran MD Primary Care Provider Active Dr. Mo Saldana MD Attending Provider Active Dr. Anant Juarez MD Referring Provider Active Team Status: Active Member Role Status Dates Dr. Rosemary Doran MD Primary Care Provider Active Dr. Neri Mitchell MD Emergency Provider Active Dr. Sae Carballo MD Admit Provi ada, Attending Provider, Other Provider Active Team Status: Active Member Role Status Dates Dr. Rosemary Doran MD Primary Care Provider Active Dr. Betina Carver MD Attending Provider Active Team Status: Inactive Member Role Status Dates Dr. Rosemary Doran MD Primary Care Provider, Referrin g Provider Active NADIA Mcintyre Attending Provider Active Team Status: Active Member Role Status Dates Dr. Rosemary Doran MD Primary Care Provider Active Dr. Lali Pimentel MD Emergency Provider Active Dr. Lynn Horn DO Admit Provider, Att ending Provider, Other Provider Active Team Status: Active Member Role Status Dates Dr. Rosemary Doran MD Primary Care Provider Active Dr. Lali Pimentel MD Emergency Provider Active Dr. Lynn Horn DO Admit Provider, Other Provider Ac tive Dr. Sae Carballo MD Attending Provider, Other Provider Active Team Status: Inactive Member Role Status Dates Dr. Rosemary Doran MD Primary Care Provider Active Dr. Anant Juarez MD Attending Provider, Referring Provider Active Team Status: Inactive Member Role Status Dates Dr. Rosemary Doran MD Primary Care Provider Active Dr. Mo Corea DO Attending Provider, Emergency P xavi Active Team Status: Inactive Member Role Status Dates Dr. Rosemary Doran MD Primary Care Provider Active Alexandra MARTINEZ MD Attending Provider Active Team Status: Active Member Role Status Dates Dr. Alexandra Hagen MD Primary Care Provider Active Dr. Anant Juarez MD Attending Provider, Referring Provider Active Team Status: Inactive Member Role Status Dates Dr. Rosemary Doran MD Primary Care Provider Active Dr. Neri Mitchell MD Emergency Provider Active Dr. Sae Carballo MD Admit Provider, Attending Provider Active Team Status: Inactive Member Role Status Dates Dr. Rosemary Doran MD Primary Care Provider Active Dr. Lali Pimentel MD Emergency Provider Active Dr. Lynn Horn DO Admit Provider, Other Provider Ac tive Dr. Sae Carballo MD Attending Provider Active Team Status: Active Member Role Status Dates Dr. Rosemary Doran MD Primary Care Provider Active Team Status: Inactive Member Role Status Dates Dr. Rosemary Doran MD Primary Care Provider Active Dr. Reese Shankar DO Attending Provider, Emergency Pr ovider Active Team Status: Inactive Member Role Status Dates Dr. Rosemary Doran MD Primary Care Provider Active Suze Prebish SCALE MANAGER, SCALE MANAGER-C Attending Provider, Referring Pr ovider Active Team Status: Inactive Member Role Status Dates Dr. Rosemary Doran MD Primary Care Prov ider, Attending Provider, Referring Provider Active Team Status: Inactive Member Role Status Dates Dr. Rosemary Doran MD Primary Care Provider Active Dr. Lc aBrcenas DO Attending Provider, Emergency Pro vider Active Team Status: Active Member Role Status Dates Dr. Rosemary Doran MD Primary Care Provider Active Dr. Mo Saldana MD Attending Provider Active Team Status: Active Member Role Status Dates Dr. Rosemary Doran MD Primary Care Provider Active Dr. Anant Juarez MD Attending Provider, Referring Provider Active Team Status: Active Member Role Status Dates Dr. Rosemary Doran MD Primary Care Provider Active Dr. Neri Mitchell MD Emergency Provider Active Dr. Sae Carballo MD Admit Provider, Attending Provider Active Team Status: Inactive Member Role Status Dates Dr. Rosemary Doran MD Primary Care Provider Active Dr. Mo Corea DO Emergency Provider Active Team Status: Active Member Role Status Dates Dr. Rosemary Doran MD Primary Care Provider Active Alexandra MARTINEZ MD Attending Provider Active Team Status: Inactive Member Role Status Dates Dr. Alexandra Hagen MD Primary Care Provider Active Dr. Anant Juarez MD Attending Provider, Referring Provider Active Team Status: Inactive Member Role Status Dates Dr. Alexandra Hagen MD Primary Care Provider Active Alexandra MARTINEZ MD Attending Provider Active Team Status: Active Member Role Status Dates Dr. Alexandra Hagen MD Primary Care Provider Active Alexandra MARTINEZ MD Attending Provider Active Team Status: Inactive Member Role Status Dates Dr. Rosemary Doran MD Referring Provider Active Rachell Cuevas PA, PA Attending Provider Active Dr. Alexandra Hagen MD Primary Care Provider Active Team Status: Inactive Member Role Status Dates Dr. Rosemary Doran MD Referring Provider Active Dr. Anant Juarez MD Attending Provider Active Dr. Alexandra Hagen MD Primary Care Provider Active Team Status: Active Member Role Status Dates Dr. Lali Pimentel MD Emergency Provider Active Dr. Rosemary Doran MD Primary Care Provider Active Chucky Carney MD Attending Provider Active Team Status: Inactive Member Role Status Dates Dr. Lali Pimentel MD Emergency Provider Active Dr. Rosemary Doran MD Primary Care Provider Active [employer] Relationship Specialty Start Date End Date Alexandra Hagen [address] [place] [id number] PCP - General Family Medicine 06/20/23 Team Status: Inactive Member Role Status Dates Dr. Lali Pimentel MD Attending Provider, Emergency Provider Active Dr. Rosemary Doran MD Primary Care Provider Active Team Status: Inactive Member Role Status Dates Dr. Alexandra Hagen MD Primary Care Provider Active Start: February 05, 2024 End: February 05, 2024 Dr. Chucky MARTINEZ MD Attending Provider Active Start: February 05, 2024 End: February 05, 2024 Team Status: Active Member Role Status Dates Dr. Alexandra Hagen MD Primary Care Provider Active Start: May 05, 2024 Cesar MARTINEZ MD Attending Provider Active St art: May 05, 2024 Team Status: Active Member Role Status Dates Dr. Alexandra Hagen MD Primary Care Provider Active Start: May 19, 2024 Cesar MARTINEZ MD Attending Provider Active St art: May 19, 2024 Team Status: Active Member Role Status Dates Dr. Alexandra Hagen MD Primary Care Provider Active Start: August 18, 2024 Cesar MARTINEZ MD Attending Provider Active St art: August 18, 2024 Team Status: Active Member Role Status Dates Dr. Chucky Ochoa DO Primary Care Provider Active Team Status: Active Member Role Status Dates Dr. Chucky Ochoa DO Primary Care Provider Active Start: September 10, 2024 Dr. Teri Garcia DO Emergency Provider Active Start: September 10, 2024 Dr. Matthew Oro DO Admit Provider Active Start: September 10, 2024 Dr. Matthew Oro DO Attending Provider Active Start: September 10, 2024 Dr. Olivia Trinidad MD Other Provider Active Start: September 10, 2024 Dr. Janett French MD Other Provider Active Start: September 10, 2024 Julia Carpenter MD Other Provider Active Start : September 10, 2024 Keyshawn Swan MS Other Provider Active Start: J 2024 Dr. Dmitriy Diop MD Other Provider Active Sta rt: September 10, 2024 Meagan Edmondson MD Other Provider Active Start: September 10, 2024 MAMADOU CANCINO MD Other Provider Active Start: 2024 Cara Batista MD Other Provider Active Start : September 10, 2024 Dr. Lorelei Pruett MD Other Provider Active Start : September 10, 2024 Robinson Mayorga MD Other Provider Active Start: September 10, 2024 Aura Thurman MD Other Provider Active Start: September 10, 2024 Scheduled Active and Recently Administ ered Medications (unrecognized section and content) Medication Order 06/18/2023 06/19/2023 06/20/2023 atorvastatin (Lipitor) tablet 40 mg 40 mg, Oral, Nightly, First dose on Fri06/17/23 at 2145 1512 (MAY Hold - Provider: Automatic Transfer Provider - Reason: Patient not available)2025 (MAY Unhold - Provider: Automatic Transfer Provider)2126 (Given - Provider: Kirsty Vicente RN) 2147 (Given - Provider: Kirsty Vicente RN) ceFAZolin in dextrose 4% (Ancef) IVPB 2,000 mg (COMPLETED) 2,000 mg, IntraVENous, Administer over 30 Minutes, Every 8 hours, First dose on Fri06/18/23 at 1600, For 24 hours, Recovery & On Unit, premix bag, Suspected Indication (Select all that apply): Surgical Prophylaxis 1600 (Not Given - Provider: Odessa Wayne RN - Reason: Other - Comment: see administration at 1611)1611 (Given - Provider: Sae Lora CRNA)1916 (Anesthesia Volume Adjustment - Provider: Sae Lora CRNA) 0010 (New Bag - Provider: Kirsty Vicente RN)0040 (Stopped - Provider: Kirsty Vicente RN)0837 (New Bag - Provider: Leona Sidhu, RN)0907 (Stopped - Provider: Leona Sidhu, RN) docusate sodium (Colace) capsule 100 mg 100 mg, Oral, 2 times daily, First dose on Fri06/18/23 at 2100, Do not crush or break. 1512 (MAY Hold - Provider: Automatic Transfer Provider - Reason: Patient not available)2025 (MAY Unhold - Provider: Automatic Transfer Provider)2126 (Given - Provider: Kirsty Vicente RN) 08 (Given - Provider: Leona Sidhu, RN)2147 (Given - Provider: Kirsty Vicente RN) 09 (Given - Provider: Juanjo Villalba, RN) donepezil (Aricept) tablet 10 mg 10 mg, Oral, Nightly, First dose on Fri06/17/23 at 2145 1512 (MAR Hold - Provider: Automatic Transfer Provider - Reason: Patient not available)2025 (MAR Unhold - Provider: Automatic Transfer Provider)2126 (Given - Provider: Kirsty Vicente RN) 2146 (Given - Provider: Kirsty Vicente RN) Insulin Lispro (Humalog) injection 0-6 Units(Linked Group 1) 0-6 Units, SubCUTAneous, 3 times daily with meals, First dose on Fri06/18/23 at 0800, Low Dose Correction Algorithm Glucose: Dose: LESS than 139 No Insulin 140-199 1 Unit 200-249 2 Units 250-299 3 Units 300-349 4 Units 350-400 5 Units Above 400 6 Units 0800 (Not Given - Provider: Odessa Wayne RN - Reason: NPO)1200 (Not Given - Provider: Odessa Wayne RN - Reason: NPO)151 (MAR Hold - Provider: Automatic Transfer Provider - Reason: Patient not available)1700 (Dose Auto Held - Provider: Automatic Transfer Provider)2025 (MAR Unhold - Provider: Automatic Transfer Provider) 0800 (Not Given - Provider: Leona Sidhu RN - Reason: Medication not available)1200 (Not Given - Provider: Leona Sidhu RN - Reason: Order parameters not met - Comment: pt did not want 1 unit)1700 (Not Given - Provider: Leona Sidhu RN - Reason: Order parameters not met) 0800 (Not Given - Provider: Juanjo Villalba RN - Reason: Order parameters not met - Comment: 125)1200 (Not Given - Provider: Juanjo Villalba RN - Reason: Other)1700 (Canceled Entry - Provider: Automatic Discharge Provider - Comment: Automatically canceled at discontinue of medication order) Insulin Lispro (Humalog) injection 0-6 Units(Linked Group 1) 0-6 Units, SubCUTAneous, Nightly, First dose on Fri06/17/23 at 2145, If continuous tube feedings/TPN/NPO, give correction dose based on result, no reduction in dose. If eating or bolus tube feeding: Low Dose Correction Algorithm Glucose: Dose: LESS than 139 No Insulin 140-199 1 Unit 200-249 2 Units 250-299 3 Units 300-349 4 Units 350-400 5 Units Above 400 6 Units 151 ([facility] Hold - Provider: Automatic Transfer Provider - Reason: Patient not available)2025 ([facility] Unhold - Provider: Automatic Transfer Provider)2131 (Given - Provider: Kirsty Vicente RN - Comment: bs 189) 2146 (Given - Provider: Kirsty Vicente RN) lamoTRIgine (LaMICtal) tablet 50 mg 50 mg, Oral, 2 times daily, First dose on Fri06/17/23 at 2145 0841 (Given - Provider: Odessa Wayne RN)1511 ([facility] Hold - Provider: Automatic Transfer Provider - Reason: Patient not available)2025 ([facility] Unhold - Provider: Automatic Transfer Provider)2126 (Given - Provider: Kirsty Vicente RN) 0837 (Given - Provider: Leona Sidhu RN)2147 (Given - Provider: Kirsty Vicente RN) 0924 (Given - Provider: Juanjo Villalba, JAYME) metoprolol tartrate (Lopressor) tablet 25 mg 25 mg, Oral, 2 times daily, First dose on Fri06/17/23 at 2145 0840 (Given - Provider: Odessa Wayne RN)1511 ([facility] Hold - Provider: Automatic Transfer Provider - Reason: Patient not available)2025 ([facility] Unhold - Provider: Automatic Transfer Provider)2126 (Given - Provider: Kirsty Vicente RN) 0837 (Given - Provider: Leona Sidhu RN)2147 (Given - Provider: Kirsty Vicente RN) 0924 (Given - Provider: Juanjo Villalba, JAYME) pantoprazole (ProtoNix) EC tablet 40 mg 40 mg, Oral, Daily before breakfast, First dose on Fri06/18/23 at 0600, Substituted for omeprazole (Prilosec). Do not crush, chew, or split. 0600 (Not Given - Provider: Yvan Sepulveda RN - Reason: NPO)151 ([facility] Hold - Provider: Automatic Transfer Provider - Reason: Patient not available)2025 ([facility] Unhold - Provider: Automatic Transfer Provider) 0540 (Given - Provider: Kirsty Vicente, RN) 0513 (Given - Provider: Kirsty Vicente, RN) warfarin (Coumadin) tablet 2.5 mg 2.5 mg, Oral, Once Warfarin, On Fri06/20/23 at 1700, For 1 dose 1700 (Canceled Entry - Provider: Automatic Discharge Provider - Comment: Automatically canceled at discontinue of medication order) warfarin (Coumadin) tablet 5 mg (COMPLETED) 5 mg, Oral, Once Warfarin, On Mamta 06/19/23 at 1700, For 1 dose 1738 (Given - Provider: Leona Sidhu, RN) Continuous Medication Order 06/18/2023 06/19/2023 06/20/2023 sodium chloride 0.9 % infusion (CANCELED) 100 mL/hr, IntraVENous, Continuous, Starting on Fri06/18/23 at 0945 1116 (New Bag - Provider: Odessa Wayne, RN)1435 (Stopped - Provider: Odessa Wayne, RN) PRN Medication Order 06/18/2023 06/19/2023 06/20/2023 acetaminophen (Tylenol) suppository 650 mg(Linked Group 2) 650 mg, Rectal, Every 6 hours PRN, mild pain (1-3), fever, For temp greater than 100.4 F (38 C), Starting on Fri06/16/23 at 1639, Administer if oral route cannot be used. Maximum dose of acetaminophen is 4000 mg from all sources in 24 hours. 1511 (MAY Hold - Provider: Automatic Transfer Provider - Reason: Patient not available)2025 (MAY Unhold - Provider: Automatic Transfer Provider) acetaminophen (Tylenol) tablet 650 mg(Linked Group 2) 650 mg, Oral, Every 6 hours PRN, mild pain (1-3), fever, For temp greater than 100.4 F (38 C), Starting on 06/16/23 at 1639, Maximum dose of acetaminophen is 4000 mg from all sources in 24 hours. 1511 (MAY Hold - Provider: Automatic Transfer Provider - Reason: Patient not available)2025 (MAY Unhold - Provider: Automatic Transfer Provider) dextrose 5 % infusion 100 mL/hr, IntraVENous, PRN, Blood sugar less than 70mg/dL, Starting on Tu06/17/23 at 2131, Start infusion following administration of dextrose 50% or glucagon. 1511 ([facility] Hold - Provider: Automatic Transfer Provider - Reason: Patient not available)2025 ([facility] Unhold - Provider: Automatic Transfer Provider) dextrose 50 % solution 12.5 g 12.5 g, IntraVENous, PRN, low blood sugar, Blood glucose less than 70 mg/dL and patient NOT ALERT or NPO., Starting on Fri06/17/23 at 2131, If patient does not respond within 5 minutes, repeat dose x1. Start D5W at 100 mL/hour until ordering provider can be reached. Repeat blood glucose in 15 minutes. If blood glucose is less than 70 mg/dL, repeat treatment and recheck blood glucose in 15 minutes x2. If using Glucostabilizer, dose as instructed per system. 1511 ([facility] Hold - Provider: Automatic Transfer Provider - Reason: Patient not available)2025 ([facility] Unhold - Provider: Automatic Transfer Provider) glucagon (human recombinant) injection 1 mg 1 mg, IntraMUSCular, PRN, low blood sugar, Blood glucose less than 70 mg/dL and patient NOT ALERT or NPO and does not have IV access., Starting on Fri06/17/23 at 2131, After administration, attempt intravenous access and start D5W at 100 mL/hr. Repeat blood glucose in 15 minutes x2 and notify provider. 1511 ([facility] Hold - Provider: Automatic Transfer Provider - Reason: Patient not available)2025 ([facility] Unhold - Provider: Automatic Transfer Provider) glucose oral gel 15 g 15 g, Oral, As needed, low blood sugar, Starting on Fri06/17/23 at 2131, If blood glucose less than 50 mg/dL and patient ALERT and NOT NPO, give 2 tubes glucose gel. If blood glucose less than 70 mg/dL and patient ALERT and NOT NPO, give 1 tube glucose gel. Repeat blood glucose in 15 minutes. If blood glucose is less than 70 mg/dL, repeat treatment and recheck blood glucose in 15 minutes x2 and notify provider. 1511 ([facility] Hold - Provider: Automatic Transfer Provider - Reason: Patient not available)2025 ([facility] Unhold - Provider: Automatic Transfer Provider) HYDROmorphone (Dilaudid) injection 0.5 mg 0.5 mg, IntraVENous, Every 4 hours PRN, moderate pain (4-6), give prior to traction view XR, Starting on Fri06/16/23 at 1450, If oral and IV narcotics ordered, use oral first and only use IV if oral is ineffective or cannot take oral. Do Not give oral and IV within 1 hour of each other unless specifically ordered. 1511 ([facility] Hold - Provider: Automatic Transfer Provider - Reason: Patient not available)2025 ([facility] Unhold - Provider: Automatic Transfer Provider) naloxone (Narcan) injection 0.4 mg 0.4 mg, IntraVENous, Every 5 min PRN, opioid reversal, respiratory depression, Starting on Fri06/16/23 at 1647, +++ For RR <10, pinpoint pupils, over sedation for opioid reversal - MUST notify workers' compensation claims supervisor provider immediately after first dose, may give IM or SQ if no IV access +++ 1511 ([facility] Hold - Provider: Automatic Transfer Provider - Reason: Patient not available)2025 ([facility] Unhold - Provider: Automatic Transfer Provider) ondansetron (Zofran) injection 4 mg(Linked Group 3) 4 mg, IntraVENous, Every 6 hours PRN, nausea, vomiting, Starting on Fri06/16/23 at 1639, 1st Line. Give IV if patient is unable to take orally. If inadequate response within 60 minutes, proceed to next-line agent or contact provider if no further options ordered. 1511 ([facility] Hold - Provider: Automatic Transfer Provider - Reason: Patient not available)2025 ([facility] Unhold - Provider: Automatic Transfer Provider) ondansetron ODT (Zofran-ODT) disintegrating tablet 4 mg(Linked Group 3) 4 mg, Oral, Every 8 hours PRN, nausea, vomiting, Starting on Fri06/16/23 at 1639, 1st Line. If inadequate response within 60 minutes, proceed to next-line agent or contact provider if no further options ordered. Patient should allow tablet to dissolve on tongue. Do not remove from blister pack until just before administering. 1511 ([facility] Hold - Provider: Automatic Transfer Provider - Reason: Patient not available)2025 ([facility] Unhold - Provider: Automatic Transfer Provider) oxyCODONE (Roxicodone) immediate release tablet 2.5 mg(Linked Group 4) 2.5 mg, Oral, Every 4 hours PRN, moderate pain (4-6), Starting on Fri06/16/23 at 1639 1511 ([facility] Hold - Provider: Automatic Transfer Provider - Reason: Patient not available)2025 (MAR Unhold - Provider: Automatic Transfer Provider) 0924 (See Alternative - Provider: Juanjo Villalba, RN) oxyCODONE (Roxicodone) immediate release tablet 5 mg(Linked Group 4) 5 mg, Oral, Every 4 hours PRN, severe pain (7-10), Starting on Fri06/16/23 at 1639 1512 (MAY Hold - Provider: Automatic Transfer Provider - Reason: Patient not available)2025 (MAR Unhold - Provider: Automatic Transfer Provider) 0924 (Given - Provider: Juanjo Villalba, RN) polyethylene glycol (PEG) 3350 (Miralax) packet 17 g 17 g, Oral, Daily PRN, constipation, Starting on Fri06/16/23 at 1639, 1st line for treatment of constipation - give scheduled if no bowel movement in past 24 hours. 1512 (MAY Hold - Provider: Automatic Transfer Provider - Reason: Patient not available)2025 (MAY Unhold - Provider: Automatic Transfer Provider) sodium chloride 0.9 % irrigation solution (CANCELED) As needed, Starting on Fri06/18/23 at 1624, Intraprocedure 1624 (Given - Provider: Benitez Givens MD)1751 (Given - Provider: Benitez Givens MD) Linked Groups Order Group 1: Insulin Lispro (Humalog) injection 0-6 UnitsJump to med 0-6 Units, SubCUTAneous, 3 times daily with meals, First dose on Fri06/18/23 at 0800, Low Dose Correction Algorithm Glucose: Dose: LESS than 139 No Insulin 140- 199 1 Unit 200-249 2 Units 250-299 3 Units 300-349 4 Units 350-400 5 Units Above 400 6 Units And Insulin Lispro (Humalog) injection 0-6 UnitsJump to med 0-6 Units, SubCUTAneous, Nightly, First dose on Fri06/17/23 at 2145, If continuous tube feedings/TPN/NPO, give correction dose based on result, no reduction in dose. If eating or bolus tube feeding: Low Dose Correction Algorithm Glucose: Dose: LESS than 139 No Insulin 140-199 1 Unit 200-249 2 Units 250-299 3 Units 300-349 4 Units 350-400 5 Units Above 400 6 Units Group 2: acetaminophen (Tylenol) tablet 650 mgJump to med 650 mg, Oral, Every 6 hours PRN, mild pain (1-3), fever, For temp greater than 100.4 F (38 C), Starting on Fri06/16/23 at 1639, Maximum dose of acetaminophen is 4000 mg from all sources in 24 hours. Or acetaminophen (Tylenol) suppository 650 mgJump to med 650 mg, Rectal, Every 6 hours PRN, mild pain (1-3), fever, For temp greater than 100.4 F (38 C), Starting on Fri06/16/23 at 1639, Administer if oral route cannot be used. Maximum dose of acetaminophen is 4000 mg from all sources in 24 hours. Group 3: ondansetron ODT (Zofran-ODT) disintegrating tablet 4 mgJump to med 4 mg, Oral, Every 8 hours PRN, nausea, vomiting, Starting on Fri06/16/23 at 1639, 1st Line. If inadequate response within 60 minutes, proceed to next-line agent or contact provider if no further options ordered. Patient should allow tablet to dissolve on tongue. Do not remove from blister pack until just before administering. Or ondansetron (Zofran) injection 4 mgJump to med 4 mg, IntraVENous, Every 6 hours PRN, nausea, vomiting, Starting on Fri06/16/23 at 1639, 1st Line. Give IV if patient is unable to take orally. If inadequate response within 60 minutes, proceed to next-line agent or contact provider if no further options ordered. Group 4: oxyCODONE (Roxicodone) immediate release tablet 2.5 mgJump to med 2.5 mg, Oral, Every 4 hours PRN, moderate pain (4-6), Starting on Fri06/16/23 at 1639 Or oxyCODONE (Roxicodone) immediate release tablet 5 mgJump to med 5 mg, Oral, Every 4 hours PRN, severe pain (7-10), Starting on Fri06/16/23 at 1639 FOR RECORDS PERTAINING TO PATIENTS WHO ARE [...] BE BASED ON THE PRIMARY CLINICAL RECORDS. [facility]. provides no warranty or guarantee of the accuracy or completeness of information in this document.
[2024-09-10 19:52] LABS: Troponin T High Sens 4 HR 15 ng/L (<=14)
--- NOTE | 2024-09-10 23:35 | NURSING ---
Report given to RN for transfer of RN care at this time
[2024-09-11 02:00] VITALS: BP 183/95; PULSE 67; RESP 14; TEMP 36.6; O2SAT 96
[2024-09-11 06:00] VITALS: BP 180/90; PULSE 71; RESP 16; TEMP 36.6; O2SAT 96
[2024-09-11 06:50] LABS: Hematocrit 39.7 % (37-47); Hemoglobin 13.1 g/dL (12.0-15.0); Mean Corpuscular Hgb 30.3 pg (27.0-32.0); Mean Corpuscular Volume 91.7 fL (81-99); Mean Platelet Vol. 10.7 fl (6.2-12.0); Platelet Count 271 K/mm3 (150-450); RBC Distribution Width CV 12.8 % (11.6-14.6); RBC Distribution Width SD 42.8 fl (35.1-43.9); Red Blood Count 4.33 M/mm3 (4.2-5.4); White Blood Count 12.2 K/mm3 (4.4-11.0)
[2024-09-11 07:06] LABS: Anion Gap 12 (5-15); BUN 28 mg/dL (4-19); BUN/Creat Ratio 30.4 RATIO (10-20); Calcium,Total 8.8 mg/dL (7.6-11.0); Carbon Dioxide 21.6 mmol/L (21.0-32.0); Chloride 105 mmol/L (98-108); Cholesterol 172 mg/dL (<=200); Creatinine, Serum 0.91 mg/dL (0.70-1.20); EST Glomerular Filtration Rate 61 (>60); Estimated Creatinine Clearance 41.34 ml/min (50-250); Glucose 118 mg/dL (70-99); High Density Lipoprotein 57 mg/dL; Low Density Lipoprotein Calc. 100 mg/dL; Potassium 4.4 mmol/L (3.3-5.1); Sodium Level 139 mmol/L (133-145); Triglycerides 78 mg/dL; Very Low Density Lipoprotein 16 mg/dL (5-40); cholesterol:hdl ratio screen 3.03
[2024-09-11 08:10] VITALS: BMI 30.3
--- NOTE | 2024-09-11 08:49 | CASEMGMT ---
Social Work Pt admitted for possible stroke, however workup is negative. PHQ9 not completed. Pt is admitted from [facility]. SW met with pt and introduced self and role of SW. PT states she has lived at [facility] for the last two years. Pt is independent with ADLs. Staff provides meds and IADLs. Pt uses a walker to ambulate. Pt plans to return to [facility] when medically ready. Pt has 6 sons, 3 of which live locally. Pt states that she will attempt to call a son for transportation home, but they may not be available and pt may need to use [employer]. Green Sheet placed on chart to facilitate weekend discharge. Plan: Return to [facility], when medically ready SELINA Myers
[2024-09-11 09:09] VITALS: BP 174/85; PULSE 84; RESP 18; TEMP 36.6; O2SAT 98
[2024-09-11] MEDS: Pantoprazole Sodium 20 MG Tablet PO (09:10)
[2024-09-11] MEDS: lamoTRIgine 25 MG Tablet 50 MG PO (09:10)
--- NOTE | 2024-09-11 10:35 | NEURO.PNOTE ---
Assessment and Plan: Neuro Assessment/Plan Telestroke (Audio/Video Encounter) 89 y/o woman with h/o DM, HTN, Afib on coumadin (INR 2 days ago was 2.9 and 2.4 at [place]) and seizure on lamictal (had last GTC on Friday) p/w transient dysarthria. History is obtained from patient. On my exam, NIHSS-0 and patient reports feeling better. She follows with Dr. Becerril with neurology. CT head- no acute intracranial process. CTA- no LVO with b/l ICA 60% and diffuse narrowing of left FINGER BUFF SEWER. MRI brain - no acute stroke. LDL-100 Diagnosis: TIA Plan: Continue coumadin and statin. Check A1c. Follow up EEG. Continue lamictal. Follow up with neurology as an outpatient. 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 Sign off for now and please call us for any questions. I personally attended this patient and spent a total time of 35 minutes evaluating this patient including clinical assessment, review of chart, medical history imaging, and determining appropriate treatment and workup. Subject: Neurology Subjective 89 y/o woman with h/o DM, HTN, Afib on coumadin (INR 2 days ago was 2.9 and 2.4 at [place]) and seizure on lamictal (had last GTC on Friday) p/w transient dysarthria. History is obtained from patient. On my exam, NIHSS-0 and patient reports feeling better. She follows with Dr. Becerril with neurology. CT head- no acute intracranial process. CTA- no LVO with b/l ICA 60% and diffuse narrowing of left FINGER BUFF SEWER. MRI brain - no acute stroke. Today, she reports feeling better with NIHSS-0 EEG Results Procedure Details EEG Procedure Details: EZRA GONZALEZ is a 89 year old F with a past medical history of , who presents for evaluation of Electroencephalogram on DATE at TIME Objective Data Objective Data Vital Signs: Vital Signs Temp Pulse Resp BP Pulse Ox O2 Del Method 97.8 F 84 18 174/85 H 98 Room Air 09/11/24 09:09 09/11/24 09:09 09/11/24 09:09 09/11/24 09:09 09/11/24 09:09 09/11/24 09:09 Oxygen Delivery Method Room Air Weight: 77.6 kg Body Mass Index (BMI) 30.3 Intake & Output: Intake and Output for Last 24 Hours 09/09/24 09/10/24 09/11/24 23:59 23:59 23:59 Intake Total 400 / 400 Balance 400 / 400 Lab / Micro Data 09/11/24 05:52 09/11/24 05:52 Labs: Laboratory Results - last 24 hr 09/10/24 14:50: WBC 11.5 H, RBC 4.44, Hgb 13.6, Hct 41.7, MCV 93.9, MCH 30.6, MCHC 32.6, RDW Std Deviation 45.4 H, RDW Coeff of Sumeet 13.2, Plt Count 269, MPV 10.4, Immature Gran % (Auto) 0.400, Neut % (Auto) 72.3 H, Lymph % (Auto) 16.6 L, [place] % (Auto) 9.1, Eos % (Auto) 1.2, Baso % (Auto) 0.4, Absolute Neuts (auto) 8.3 H, Absolute Lymphs (auto) 1.91, Nucleated RBC % 0, PT 26.4 H, INR 2.4, APTT 31.8, Sodium 137, Potassium 4.4, Chloride 103, Carbon Dioxide 21.8, Anion Gap 12, BUN 37 H, Creatinine 1.05, Estim Creat Clear Calc 33.63 L, Est GFR (MDRD) Non-Af 51 L, BUN/Creatinine Ratio 34.8 H, Glucose 131 H, Calcium 8.7, Troponin T High Sens 18 H 09/10/24 15:03: Urine Color Straw, Urine Clarity Clear, Urine pH 5.0, Ur Specific [place] 1.010, Urine Protein 30 H, Urine Glucose (UA) Normal, Urine Ketones Negative, Urine Occult Blood Negative, Urine Nitrite Negative, Urine Bilirubin Negative, Urine Urobilinogen Normal, Ur Leukocyte Esterase 500 H, Urine RBC 0 SEEN, Urine WBC 10-25 SEEN, Ur Squamous Epith Cells 0-5 SEEN, Urine Bacteria RARE, Urine Mucus 0 SEEN 09/10/24 17:08: Troponin T Hi Sens 2 Hr 17 H 09/10/24 18:35: Troponin T Hi Sens 4Hr 15 H 09/11/24 05:52: WBC 12.2 H, RBC 4.33, Hgb 13.1, Hct 39.7, MCV 91.7, MCH 30.3, MCHC 33.0, RDW Std Deviation 42.8, RDW Coeff of Sumeet 12.8, Plt Count 271, MPV 10.7, Sodium 139, Potassium 4.4, Chloride 105, Carbon Dioxide 21.6, Anion Gap 12, BUN 28 H, Creatinine 0.91, Estim Creat Clear Calc 41.34 L, Est GFR (MDRD) Non-Af 61, BUN/Creatinine Ratio 30.4 H, Glucose 118 H, Calcium 8.8, Triglycerides 78, Cholesterol 172, LDL Cholesterol, Calc 100, VLDL Cholesterol 16, HDL Cholesterol 57, Cholesterol/HDL Ratio 3.03 Micro: Microbiology 09/10/24 15:03 Urine, Clean Catch Urine Culture - 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 NO ACUTE FINDINGS. Red Alert: Chronic changes. The critical information above was relayed directly by me by telephone to Teri Garcia on 09/10/2024 at 2:05 pm with readback verification. Reading Location: [id number] Head/Neck CTA 09/10/24 13:55 IMPRESSION: Calcific plaque at the origin of the right and left internal carotid arteries causing 60% stenosis. Diffuse narrowing of the left posterior cerebral artery as well as the distal branches. Red Alert: Narrowing of Left Pos this is unchanged. The critical information above was relayed directly by me by telephone to Teri Garcia on 09/10/2024 at 3:01 pm with readback verification. Reading Location: [id number] Brain MRI 09/10/24 16:07 IMPRESSION: Atrophy and mild microvascular changes Reading [facility] Rhythm Strip Rhythm Strip: A-fib Rate: 75 Ectopy: None Physical Exam Narrative General: The patient appears nutritionally appropriate, well-groomed, and appears comfortable in no acute distress. Mental Status:? The patient?s mental status was normal including orientation.? Language was intact.? Cranial nerves:? Visual pulido full, and extra-ocular motion was intact. Symmetric face. Motor: Normal strength in all extremities. Sensation: Intact to touch in all extremities.? Coordination:? Bilateral finger to nose was normal.? There was no dysmetria. Gait:? deferred. NIHSS NIHSS Nursing Documentation NIHSS Nursing Documentation: NIHSS: Ischemic Stroke/TIA Start: 09/10/24 17:16 Text: For PCU Patients: NIH and Neuro Check every 4 Status: Active hours, PRN and with change in RN caregiver. Freq: [id number] Protocol: Activity Type Activity Date Activity User E-sign Co-sign Detail Recorded Client Recorded Date Recorded By Document 09/11/24 09:08 YOVANY [id number] 09/11/24 09:08 YOVANY 09/11/24 09:08 NIH Stroke Scale [NIHSS] A score of 0 is normal or asymptomatic . Total possible score is 42. Inpatient: RN or Physician to activate a stroke alert for onset of new stroke symptoms or with NIHSS increase >/= 3 points. Following change in neurological status, NIHSS will be performed per physician order or more frequently PRN. -1a. Level of Consciousness 0 - Alert; keenly responsive -1b. LOC Questions 0 - Answers BOTH questions correctly -1c. LOC Commands 0 - Performs BOTH tasks correctly -2. Best Gaze 0 - Normal -3. Visual 0 - No visual loss -4. Facial Palsy 0 - Normal symmetrical movements -5a. Left Arm 0 - No drift; arm holds 90 ( or 45) degrees for full 10 seconds -5b. Right Arm 0 - No drift; arm holds 90 ( or 45) degrees for full 10 seconds -6a. Left Leg 0 - No drift; leg holds 30- degree position for full 5 seconds -6b. Right Leg 0 - No drift; leg holds 30- degree position for full 5 seconds -7. Limb Ataxia 0 - Absent -8. Sensory 0 - Normal; no sensory loss -9. Best Language 0 - No aphasia; normal -10. Dysarthria 0 - Normal -11. Extinction and Inattention 0 - No abnormality -Total 0 Query Text:A score of 0 is normal or asymptomatic. Total possible score is 42 . ED: Notify Physician for NIHSS increase by > / = 3 points. Inpatient: RN or Physician to activate a stroke alert for NIHSS increase of > / = 3 points. Coma Scale [Assess] -Eye Opening Spontaneous -Motor Obeys Commands -Verbal Oriented [Total] -Coma Scale Total 15 NIHSS 1a. Level of Consciousness: 0 - Alert; keenly responsive 1b. LOC Questions: 0 - Answers BOTH questions correctly 1c. LOC Commands: 0 - Performs BOTH tasks correctly 2. Best Gaze: 0 - Normal 3. Visual: 0 - No visual loss 4. Facial Palsy: 0 - Normal symmetrical movements 5a. Left Arm: 0 - No drift; arm holds 90 (or 45) degrees for full 10 seconds 5b. Right Arm: 0 - No drift; arm holds 90 (or 45) degrees for full 10 seconds 6a. Left Le - No drift; leg holds 30-degree position for full 5 seconds 6b. Right Le - No drift; leg holds 30-degree position for full 5 seconds 7. Limb Ataxia: 0 - Absent 8. Sensory: 0 - Normal; no sensory loss 9. Best Language: 0 - No aphasia; normal 10. Dysarthria: 0 - Normal 11. Extinction and Inattention: 0 - No abnormality Total: 0
--- NOTE | 2024-09-11 12:14 | PCM.DC.SUM ---
Providers Date of Admission: 09/10/24 Date of Discharge: 09/11/24 Primary Care Physician: Dr. Chucky Ochoa, DO Consultations 09/10/24 17:16 Consult: Tele-Neurology Routine Consulting Provider: [facility] Reason for Consult: Acute Ischemic Stroke/TIA EMERGENT Consult: No MD Notified: Yes Date Notified: 09/10/24 Time Notified: 21:03 Method of Notification: Answering Service Nursing Unit Staff Notify [facility] of Tele-Neurology Consult: Yes Reason For Visit: STROKE VS SEIZURE Diagnosis Discharge Diagnosis (1) Difficulty with speech: Status: Acute Code(s): R47.9 - Unspecified speech disturbances Medications at Discharge Home Medications multivitamin 1 cap PO DAILY 12/10/19 omeprazole 20 mg capsule,delayed release 20 mg PO DAILY reflux 11/14/22 atorvastatin 40 mg tablet 40 mg PO QHS 01/20/23 ascorbic acid (vitamin C) 250 mg tablet 250 mg PO DAILY 05/19/23 diphenhydramine HCl 25 mg tablet (Allergy (diphenhydramine)) 25 mg PO QHS PRN allergy symptoms 05/19/23 warfarin 3 mg tablet 3 mg PO .QMOTHSASU #90 tabs 04/30/24 donepezil 10 mg tablet 10 mg PO QHS #30 tabs 05/10/24 lamotrigine 25 mg tablet 50 mg (2 x 25 mg) PO BID #120 tabs 05/10/24 acetaminophen 650 mg tablet,extended release (Tylenol Arthritis Pain) 650 mg PO Q8H 09/08/24 irbesartan 300 mg tablet 300 mg PO DAILY 09/08/24 metoprolol succinate 50 mg tablet,extended release 24 hr 50 mg PO DAILY 09/08/24 calcium 600 mg (as carbonate)-vitamin D3 5 mcg (200 unit) tablet (Calcium 600 + D(3)) 2 tab PO DAILY 09/10/24 diclofenac sodium 1 % topical gel (Arthritis Pain (diclofenac)) 2 g topical BID 09/10/24 ondansetron HCl 4 mg tablet 4 mg PO Q6H PRN nausea and vomiting 09/10/24 warfarin 2 mg tablet 2 mg PO .QTUWEFR 09/10/24 Hospital Course Operations None Procedures Electroencephalogram, EKG and - (CT brain, CTA head/neck, MRI brain) Summary of Care Provided Minutes Spent on Discharge: 35 Hospital Course: Patient is an 89-year-old female who presented to [facility] ED on 09/10/2024 with dysarthria. Short hospital course as noted below. Patient discharged back to assisted living in stable condition on 09/11. 1. Episode of dysarthria with history of seizures, concern for CVA versus breakthrough seizure ? Neurology followed. Episode of dysarthria that lasted about 30 minutes and resolved on its own. CT brain and CTA head/neck nonacute. MRI brain unremarkable. Follows with Dr. Becerril with neurology who has been concern for possible epileptic episodes. Notably was here 3 days prior to this admission and Lamictal level was sent but result remains pending on discharge. Routine EEG completed, read pending on discharge. Per neurology, suspected seizure versus TIA. Okay to continue Coumadin, statin and Lamictal on discharge with plan for close outpatient follow-up with Dr. Becerril. 2. Chronic debility with cognitive impairment ? PT/OT/case management followed. Lives at assisted living and has known history of cognitive impairment. Continue home donepezil. Stable for discharge back to assisted living on 09/11. 3. History of CAD with stenting, hypertension, hyperlipidemia, longstanding persistent A-fib on Coumadin, carotid stenosis ? Continue home statin and Coumadin. INR therapeutic on admit. Held home beta-antonio and ARB on admit for permissive hypertension, okay to resume on discharge. 4. GERD ? Continue home PPI. Total clinical time spent by myself addressing the patient's medical issues, reviewing all the data, and collaborating with patient's care team: 35 minutes. Physical Exam Const alert, oriented x3, no apparent distress and average body habitus Constitutional Narrative: Pleasant elderly female, alert and oriented x 3 but with some tangential speech noted, otherwise sitting back comfortably in bed, conversing normally and in no acute distress. General Appearance: cooperative and comfortable HEENT normocephalic, head/scalp atraumatic, hearing grossly normal bilaterally, nasal mucous membranes and turbinates normal and moist oral mucous membranes Eyes PERRL, EOMs intact bilaterally and conjunctivae normal Neck full ROM Chest inspection of chest normal Resp normal respiratory effort, normal air movement, no use of accessory muscles and clear to auscultation bilaterally Cardio regular rate, regular rhythm, no murmurs and peripheral pulses 2+ throughout GI normal to inspection, nondistended, normoactive bowel sounds, soft to palpation, non-tender and non-distended Back/Spine normal ROM Extremity normal to inspection, full ROM and no pedal edema Skin no rashes or lesions noted Neuro CN's II-XII intact bilaterally, moves all extremities and no focal motor deficits Sensorium / Orientation: awake and alert Speech: speech normal Motor Exam: strength 5/5 throughout Psych mental status grossly normal Weight / BMI Weight Weight: 77.6 kg Body Mass Index (BMI) 30.3 ABG / Lab / Microbiology Data 09/11/24 05:52 09/11/24 05:52 Laboratory: Laboratory Results - last 24 hr 09/10/24 14:50: WBC 11.5 H, RBC 4.44, Hgb 13.6, Hct 41.7, MCV 93.9, MCH 30.6, MCHC 32.6, RDW Std Deviation 45.4 H, RDW Coeff of Sumeet 13.2, Plt Count 269, MPV 10.4, Immature Gran % (Auto) 0.400, Neut % (Auto) 72.3 H, Lymph % (Auto) 16.6 L, [place] % (Auto) 9.1, Eos % (Auto) 1.2, Baso % (Auto) 0.4, Absolute Neuts (auto) 8.3 H, Absolute Lymphs (auto) 1.91, Nucleated RBC % 0, PT 26.4 H, INR 2.4, APTT 31.8, Sodium 137, Potassium 4.4, Chloride 103, Carbon Dioxide 21.8, Anion Gap 12, BUN 37 H, Creatinine 1.05, Estim Creat Clear Calc 33.63 L, Est GFR (MDRD) Non-Af 51 L, BUN/Creatinine Ratio 34.8 H, Glucose 131 H, Calcium 8.7, Troponin T High Sens 18 H 09/10/24 15:03: Urine Color Straw, Urine Clarity Clear, Urine pH 5.0, Ur Specific [place] 1.010, Urine Protein 30 H, Urine Glucose (UA) Normal, Urine Ketones Negative, Urine Occult Blood Negative, Urine Nitrite Negative, Urine Bilirubin Negative, Urine Urobilinogen Normal, Ur Leukocyte Esterase 500 H, Urine RBC 0 SEEN, Urine WBC 10-25 SEEN, Ur Squamous Epith Cells 0-5 SEEN, Urine Bacteria RARE, Urine Mucus 0 SEEN 09/10/24 17:08: Troponin T Hi Sens 2 Hr 17 H 09/10/24 18:35: Troponin T Hi Sens 4Hr 15 H 09/11/24 05:52: WBC 12.2 H, RBC 4.33, Hgb 13.1, Hct 39.7, MCV 91.7, MCH 30.3, MCHC 33.0, RDW Std Deviation 42.8, RDW Coeff of Sumeet 12.8, Plt Count 271, MPV 10.7, Sodium 139, Potassium 4.4, Chloride 105, Carbon Dioxide 21.6, Anion Gap 12, BUN 28 H, Creatinine 0.91, Estim Creat Clear Calc 41.34 L, Est GFR (MDRD) Non-Af 61, BUN/Creatinine Ratio 30.4 H, Glucose 118 H, Calcium 8.8, Triglycerides 78, Cholesterol 172, LDL Cholesterol, Calc 100, VLDL Cholesterol 16, HDL Cholesterol 57, Cholesterol/HDL Ratio 3.03 Microbiology: Microbiology 09/10/24 15:03 Urine, Clean Catch Urine Culture - 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 Diffuse narrowing of the left posterior cerebral artery as well as the distal branches. Red Alert: Narrowing of Left Pos this is unchanged. The critical information above was relayed directly by me by telephone to Teri Garcia on 09/10/2024 at 3:01 pm with readback verification. Reading Location: [facility] Brain MRI 09/10/24 16:07 IMPRESSION: Atrophy and mild microvascular changes Reading Location: [facility]/C Instructions DC O2, CPAP, BIPAP Needs Home O2 Discharge instructions: No Meaningful Use Info Meaningful Use Meaningful Use Diagnoses (Choose all that apply): None applicable Ischemic Stroke Statin Dosing Therapy Reference: STATIN DOSE THERAPY REFERENCE: * Patients > 75 years receive moderate or high dose statin therapy. * Patients 75 years or YOUNGER should receive HIGH intensity statin dose unless contraindicated. You will be required to document reason for non-treatment if statin daily dose does not meet guidelines. HIGH DOSE STATIN THERAPY DAILY Atorvastatin > than or = to 40 mg Rosuvastatin > than or = to 20 mg Amlodipine + Atorvastatin > than or = to 2.5/40 mg Ezetimibe + Simvastatin 10/80 mg Simvastatin 80mg Discharge Plan Admission Admit Date/Time: 09/10/24 16:03 Primary Reason for Your Visit: slurred speech Attending Provider: Matthew Oro Primary Care Provider: Chucky Ochoa Consulting Providers: Olivia Trinidad; Janett French; Julia Carpenter; Keyshawn Swan; Dmitriy Diop; Meagan Edmondson; MAMADOU CANCINO; Cara Batista; Lorelei Pruett; Robinson Mayorga; Aura Thurman; Eric Crowell; Camila Mitchell; Glenna Jacobson; Lenin Tamez; Ml Morris; Chauncey Vaughn; Nirmal Hummel; Rubén Michel; Iggy Graves; Liz Merrill; Bala Perez; Castillo Jones; Daniel Leroy; Cindy Horn; Ashu Leonard Discharge Orders/Prescriptions Prescriptions: Continued multivitamin Capsule 1 cap PO DAILY atorvastatin 40 mg tablet 40 mg PO QHS ascorbic acid (vitamin C) 250 mg tablet 250 mg PO DAILY diphenhydramine HCl [Allergy (diphenhydramine)] 25 mg tablet 25 mg PO QHS PRN (Reason: allergy symptoms) donepezil 10 mg tablet 10 mg PO QHS Qty: 30 9RF lamotrigine 25 mg tablet 50 mg PO BID Qty: 120 9RF omeprazole 20 mg capsule,delayed release(DR/EC) 20 mg PO DAILY ondansetron HCl 4 mg tablet 4 mg PO Q6H PRN (Reason: nausea and vomiting) warfarin 2 mg tablet 2 mg PO .QTUWEFR diclofenac sodium [Arthritis Pain (diclofenac)] 1 % gel 2 g topical BID calcium carbonate-vitamin D3 [Calcium 600 + D(3)] 600 mg-5 mcg (200 unit) tablet 2 tab PO DAILY irbesartan 300 mg tablet 300 mg PO DAILY acetaminophen [Tylenol Arthritis Pain] 650 mg tablet extended release 650 mg PO Q8H metoprolol succinate 50 mg tablet extended release 24 hr 50 mg PO DAILY warfarin 3 mg tablet 3 mg PO .QMOTHSASU Qty: 90 3RF Protocol: Dose Management Condition: Friday Dose/Route: 3 mg Instruction: 1 x 3 mg tablet Condition: Friday Dose/Route: 3 mg Instruction: 1 x 3 mg tablet Condition: Friday Dose/Route: 2.5 mg Instruction: 1 x 2.5 mg tablet Condition: Friday Dose/Route: 2.5 mg Instruction: 1 x 2.5 mg tablet Condition: Dose/Route: 3 mg Instruction: 1 x 3 mg tablet Condition: Friday Dose/Route: 2.5 mg Instruction: 1 x 2.5 mg tablet Condition: Friday Dose/Route: 3 mg Instruction: 1 x 3 mg tablet Protocol Text: Adjustment Start Date: Friday07/19/24 INR Value: 2.2 INR Date: 07/19/24 Recheck Date: 08/18/24 Rx Instructions: or as directed Referrals / Follow Up: Chucky Ochoa DO [Primary Care Provider] - Disposition Disposition (needs filled in before D/C Order can be placed): Home, Self Care Charges/Coding Visit Charges Inpatient E&M: 98154 Disch Hosp >30min
[2024-09-11 13:55] VITALS: BMI 30.3
--- NOTE | 2024-09-11 15:02 | NEURO.EEG ---
EEG Results Procedure Details EEG Procedure Details: Inpatient routine EEG report performed at [facility] Study start time: 1326 on 09/11/24 End Time: 1346 on 09/11/24 History: Rule out seizures ? Indication: Rule out seizures Technical Description: This is a 18-channel digital EEG recording with time-locked video and single-channel electrocardiogram. Electrodes are placed according to the 10 to 20 International System. The patient was monitored continuously by EEG technicians and EEG recording was reviewed intermittently with annotations to the EEG record. Portions of this record are reviewed using bandpass filters of 1 to 70 Hz and sensitivity of 7mV/mm. ? EEG DESCRIPTION Background: This recording was obtained during awake and drowsy state. In the maximally alert state, a posterior dominant rhythm of 8 Hz was seen. There was also generalized intermittent slowing of frontally predominant delta activity intermixed with theta frequencies. During drowsiness, there was attenuation of the waking background. Activation Procedures: Photic stimulation was performed. No abnormal or epileptic activity was triggered by this procedure. Sporadic Epileptiform Discharges: Sharp waves seen over the L temporal region max T7 > F7 Focal slow activity: Left hemispheric intermittent slowing most prominent over the temporal region Rhythmic or Periodic activity: none ? Seizures: none Patient Events: none EEG DIAGNOSIS: Abnormal ? 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 No seizures were seen. There is also evidence of mild diffuse encephalopathy. Nguyen Jones MD
== END 2024-09-11 15:50 | disposition home or self-care (01) ==
LOC: ED 16:17 → PCU 17:00
PROVIDERS: Admitting Provider Hospitalist; Emergency Provider Emergency Medicine; Visit Provider Hospitalist
DX: R47.1 Dysarthria and anarthria (principal); I50.32 Chronic diastolic (congestive) heart failure; I13.0 Hypertensive heart and chronic kidney disease with heart failure and stage 1 through stage 4 chronic kidney disease, or unspecified chronic kidney disease; I48.11 Longstanding persistent atrial fibrillation; G40.909 Epilepsy, unspecified, not intractable, without status epilepticus; E11.22 Type 2 diabetes mellitus with diabetic chronic kidney disease; N18.9 Chronic kidney disease, unspecified; E78.5 Hyperlipidemia, unspecified; Z87.891 Personal history of nicotine dependence; Z79.01 Long term (current) use 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; M48.02 Spinal stenosis, cervical region; R47.81 Slurred speech; K21.9 Gastro-esophageal reflux disease without esophagitis; I25.10 Atherosclerotic heart disease of native coronary artery without angina pectoris; Z79.899 Other long term (current) drug therapy
CPT/HCPCS: 36415; 70450; 70496; 70498; 70551; 80048; 80061; 81001; 84484; 85025; 85027; 85610; 85730; 87077; 87086; 87088; 87186; 93005; 94762; 95819; 97162; 97166; 99285; Q9967; A4216

== ENCOUNTER → 2024-09-13 | Outpatient (CLI) | payer MEDICARE, SELFPAY ==
[2024-09-13 18:03] LABS: Ammonia 28.9 umol/L (11-51)
[2024-09-16 14:08] LABS: KEPPRA (LEVETIRACETAM) <2.0 ug/mL (10.0-40.0); Lamotrigine (Lamictal) Level 1.7 ug/mL (2.0-20.0)
== END | disposition home or self-care (01) ==
LOC: MTLAB 15:04
PROVIDERS: Referring Provider Psychiatry & Neurology Neurology; Visit Provider Psychiatry & Neurology Neurology
DX: G40.909 Epilepsy, unspecified, not intractable, without status epilepticus (principal)
CPT/HCPCS: 36415; 80177; 82140; 82542

== ENCOUNTER → 2024-09-17 | Outpatient (REF) | payer MEDICARE, SELFPAY ==
--- OUTSIDE RECORDS SUMMARY | 2024-09-17 04:41 | XMS RPT_ITS | CCD ---
Author Organization [facility] Care Team Providers Care Fibre Technologist Name Role Phone LISHNEVSKI, ALEXIA Unavailable Unavailable [...] Unavailable Nirmal Kemp Unavailable Mohan Álvarez Unavailable Bakari Chavarrianandpierce PatelClive Unavailable Rosemary Doran Primary Care Provider Lishnevski, Alexia Primary Care Provider [phone] Rosemary Doran Primary Care Provider Dr. Rosemary Doran Referring Provider Roof AVIATION PROJECT MANAGER, AVIATION PROJECT MANAGERChristina Arnett Attending Provider Dr. Rosemary Doran [...] Attending Unavailable ALEXANDRA HAGEN Primary Care Unavailable Dr. Alexandra Hagen MD Primary Care Provider Dr. Chucky Ochoa MD [...] able Cesar Cole MD Attending Provider Unavailable Andreea LENNON, Dr. Riley Referring Provider Jerrica LENNON, Dr. Ny Attending Provider Anant Juarez MD Attending Provider Unavailab kamari Hagen MD, Dr. Alexandra Leger Primary Care Provider Dr. Chucky Ochoa MD Attending Provider Unavail able Xiao LENNON, Dr. Alexandra Leger Referring Provider Douglas LENNON, Dr. Guerrero Attending Provider Xiao LENNON, Dr. Alexandra Leger Primary Care Provider Dr. Chucky Ochoa MD Attending Provider Unavail able Dr. Chucky Ochoa MD Referring Provider Unavail able Cesar Cole MD Referring Provider Unavailable Xiao LENNON, Dr. Alexandra Leger Primary Care Provider Cesar Cole MD Attending Provider Unavailable Dr. Chucky Ochoa MD Attending Provider Unavail able Dr. Anoop Blackmon MD Referring Provider Dr. Anoop Blackmon MD Emergency Provider Dr. Chucky Ochoa MD Primary Care Provider Unav ailable Xiao LENNON, Dr. Alexandra Leger Primary Care Provider Dr. Chucky Ochoa DO Primary Care Provider Dr. Teri Garcia DO Emergency Provider Dr. Matthew Oro DO Admit Provider Dr. Matthew Oro DO Attending Provider Amos LENNON, Dr. Baker Other Provider [phone] Dr. Janett French MD Other Provider [phone] Julia Carpenter MD Other Provider Sosa MS, Keyshawn Other Provider Jadon LENNON, Dr. Izaguirre Other Provider Delvis LENNON, Meagan Other Provider [phone] MAMADOU HICKS MD Other Provider Lester LENNON, Cara Other Provider Flynn LENNON, Dr. Moseley Other Provider Mukesh LENNON, Robinson Other Provider Olman LENNON, Aura Other Provider Mervat LENNON, Eric Other Provider Unavailable Camila Mitchell MD Other Provider Unavailable Dr. Glenna Jacobson DO Other Provider Joi LENNON, Dr. Phelps Other Provider Alexandra LENNON, Dr. Bull Other Provider Johana LENNON, Dr. Grossman Other Provider Shaheed LENNON, Dr. Kinney Other Provider Marilu LENNON, Dr. Montana Other Provider Ely LENNON, Dr. Parkinson Other Provider Dr. Liz Merrill MD Other Provider Chris LENNON, Dr. Mckenna Other Provider Karen LENNON, Dr. Chong Other Provider Mariaa LENNON, Dr. Sanchez Other Provider Kory LENNON, Dr. White Other Provider Unavailable Horacio LENNON, Ashu Other Provider Unavailable Dr. Matthew Oro DO Other Provider [phone] Neymar LENNON, Dr. Davalos Attending Provider [phone] Chucky Ochoa DO Referring Provider [phone] Jerrica LENNON, Dr. Ny Attending Provider Jerrica LENNON, Dr. Ny Referring Provider Chucky Whalen Attending Unavailable Jolliff, Alexandra S Primary Care Unavailable Ochoa OLS, Chucky Attending Unavailable Jolliff, Alexandra S Primary Care Unavailable Ochoa OLS, Chucky Attending Unavailable Jolliff, Alexandra S Primary Care Unavailable GilbertdoRoyce quarlesmond Attending Unavailable Jerrica Anant Referring Unavailable Ochoa, Chucky Primary Care Unavailable Ochoa OLS, Chucky Attending Unavailable Jolliff, Alexandra S Primary Care Unavailable Ochoa OLS, Chucky Attending Unavailable Jolliff, Alexandra S Primary Care Unavailable Ochoa OLS, Chucky Attending Unavailable Jolliff, Alexandra S Primary Care Unavailable Douglas, [place] Attending Unavailable Jolliff, Alexandra S Referring Unavailable Jolliff, Alexandra S Primary Care Unavailable Baddour Anant MARTINEZ Attending Unavailable Jolliff, Alexandra S Primary Care Unavailable Ochoa OLS, Chucky Attending Unavailable Jolliff, Alexandra S Primary Care Unavailable Ochoa OLS, Chucky Attending Unavailable Jolliff, Alexandra S Primary Care Unavailable Ochoa OLS, Chucky Referring Unavailable Ochoa OLS, Chucky Attending Unavailable Jolliff, Alexandra S Primary Care Unavailable Ochoa OLS, Chucky Attending Unavailable Jolliff, Alexandra S Primary Care Unavailable Ochoa OLS, Chucky Attending Unavailable Jolliff, Alexandra S Primary Care Unavailable Ochoa OLS, Chucky Attending Unavailable Jolliff, Alexandra S Primary Care Unavailable Douglas OLS, [place] Attending Unavailable Jolliff, Alexandra S Primary Care Unavailable Ochoa OLS, Chucky Attending Unavailable Jolliff, Alexandra S Primary Care Unavailable Ochoa OLS, Chucky Attending Unavailable Jolliff, Alexandra S Primary Care Unavailable Douglas OLS, Cesar Attending Unavailable Jolliff, Alexandra S Primary Care Unavailable Douglas OLS, [place] Referring Unavailable Jolliff, Alexandra S Primary Care Unavailable Anant Juarez Referring Unavailable Anant Juarez Attending Unavailable Anoop Blackmon Attending Unavailable Anoop Blackmon Referring Unavailable Ochoa OLS, Chucky Primary Care Unavailable Ochoa JUAN, Chucky Attending Unavailable Jolliff, Alexandra S Primary Care Unavailable Ochoa, Chucky Primary Care Unavailable Matthew Oro Admitting Unavailable Matthew Oro Attending Unavailable Adeli, Amir Consulting Unavailable Zha, Janett Consulting Unavailable Carpenter, Julia Consulting Unavailable Mindel, Keyshawn Consulting Unavailable Diop, Dmitriy Consulting Unavailable Edmondson, Jaysingh Consulting Unavailable JULITA, CEDILLO Consulting Unavailable Beigel, Cara Consulting Unavailable Flynn, Lorelei Consulting Unavailable Khandker, Robinson Consulting Unavailable Maturu, Aura Consulting Unavailable Gloucester, Eric Consulting Unavailable Hinduja, Camila Consulting Unavailable Kavon, Glenna Consulting Unavailable Joi, Lenin Consulting Unavailable Alexandra, Ml Consulting Unavailable Bittar, Chauncey Consulting Unavailable Hummel, Nirmal Consulting Unavailable Gusler, Rubén Consulting Unavailable Ridha, Mohamed Consulting Unavailable Zaghlouleh, Mhd Kevyn Consulting UnavailBala Iqbal Consulting Unavailable Jones, Rami Consulting Unavailable Mariaa, Daniel Consulting Unavailable Kory, Cindy Consulting Unavailable Hanmichelle, Yousef Consulting Unavailable Cesar Murrieta Attending Unavailable Alexandra Hagen Primary Care Unavailable Chucky Whalen Attending Unavailable Alexandra Hagen Primary Care Unavailable Matthew Oro Admitting Unavailable Matthew Oro Attending Unavailable Chucky Ochoa Primary Care Unavailable Adeli, Amir Consulting Unavailable Zha, Janett Consulting Unavailable Carpenter, Julia Consulting Unavailable Mindel, Keyshawn Consulting Unavailable Diop, Dmitriy Consulting Unavailable Edmondson, Jaysingh Consulting Unavailable JULITA, CEDILLO Consulting Unavailable Beigel, Cara Consulting Unavailable Flynn, Lorelei Consulting Unavailable Khandker, Robinson Consulting Unavailable Maturu, Aura Consulting Unavailable Gloucester, Eric Consulting Unavailable Hinduja, Camila Consulting Unavailable Kavon, Glenna Consulting Unavailable Joi, Lenin Consulting Unavailable Alexandra, Ml Consulting Unavailable Bittar, Chauncey Consulting Unavailable Hummel, Nirmal Consulting Unavailable Gusler, Rubén Consulting Unavailable Ridha, Mohamed Consulting Unavailable Zaghlouleh, Mhd Kevyn Consulting UnavailBala Iqbal Consulting Unavailable Jones, Rami Consulting Unavailable Mariaa, Daniel Consulting Unavailable Kory, Cindy Consulting Unavailable Hanmichelle, Yousef Consulting Unavailable Matthew Oro Consulting Unavailable Anant Juarez Attending Unavailable Chucky Ochoa Referring Unavailable Chucky Ochoa Primary Care Unavailable Rosemary Doran Primary Care Unavailable Alexandra Hagen Referring Unavailable Anant Juarez Attending Unavailable Anant Juarez Attending Unavailable Anamariaharmony Rosemary Referring Unavailable Jolliff, Alexandra S Primary Care Unavailable Chucky Whalen Attending Unavailable Jolliff, Alexandra S Primary Care Unavailable Jolliff, Alexandra S Primary Care Unavailable Chucky Whalen Attending Unavailable Ochoa OLS, Chucky Attending Unavailable Jolliff, Alexandra S Primary Care Unavailable Ochoa OLS, Chucky Attending Unavailable Jolliff, Alexandra S Primary Care Unavailable Chucky Whalen Attending Unavailable Jolliff, Alexandra S Primary Care Unavailable Chucky Whalen Referring Unavailable Ochoa OLS, Chucky Attending Unavailable Jolliff, Alexandra S Primary Care Unavailable Cesar Murrieta Attending Unavailable Jolliff, Alexandra S Primary Care Unavailable Don MARTINEZ, Chucky Attending Unavailable Jolliff, Alexandra S Primary Care Unavailable Ochoa OLS, Chucky Attending Unavailable Jolliff, Alexandra S Primary Care Unavailable Jolliff, Alexandra S Primary Care Unavailable Don MARTINEZ, Chucky Attending Unavailable Don MARTINEZ, Chucky Referring Unavailable Jolliff, Alexandra S Primary Care Unavailable Chucky Whalen Attending Unavailable Don MARTINEZ, Chucky Attending Unavailable Jolliff, Alexandra S Primary Care Unavailable OchaoChucky Mitchell Referring Unavailable Jolliff, Alexandra S Primary Care Unavailable Chucky Whalen Attending Unavailable Allergies Allergy Classification Reported Allergen(s) Allergy Type Date of Onset Reaction(s) Facility (20 sources) atorvastatin; 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: [ATORVASTATIN] Drug Allergy 5 Other: See Comments [facility] Repository (20 sources) codeine; 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: [CODEINE] Drug Allergy 5 Unknown [facility] Repository (20 sources) Latex; 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: [LATEX] Propensity to adverse reactions (disorder) 5 Rash, Itching [facility] Repository (20 sources) meperidine; 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: [MEPERIDINE] Drug Allergy 5 GI Upset [facility] Repository (20 sources) rosuvastatin; 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: [ROSUVASTATIN] Drug Allergy 5 Other: See Comments [facility] Repository (20 sources) Amiodarone Drug Allergy 2 Hair falling out in gobs, hair loss [facility] (1 source) Amiodarone Drug Allergy 5 [facility] Repository Medications Current Medications Medication Drug Class(es) Dates Sig (Normalized) Sig (Original) 8 hr acetaminophen 650 mg extended release oral tablet (10 sources) Start: 09-08-2024 take 1 tablet by [...] mg ascorbic acid 250 mg oral tablet (18 sources) Vitamin C Start: 05-19-2023 take 1 [...] 10:31am diclofenac sodium 0.01 mg/mg topical gel (4 sources) Nonsteroidal Anti-inflammatory Drug Start: 09-10-2024 Diclofenac Sodium [...] 06/30/2023 Active irbesartan 300 mg oral tablet (6 sources) Angiotensin 2 Receptor Antonio Start: 09-08-2024 take 1 tablet by mouth once daily Irbesartan 300 mg tablet Active 300 mg PO DAILY September 08, 2024 12:00am levETIRAcetam 500 mg oral tablet (20 sources) Start: 09-11-2024 End: 09-13-2024 take 1 tablet by mouth twice daily Levetiracetam (Keppra) 500 mg tablet Active 500 mg PO TWICE A DAY 60 30 September 13, 2024 2:54pm Start: 01-20-2023 End: 01-23-2023 take 1 tablet by mouth twice daily Levetiracetam 250 mg tablet Discontinued 250 mg PO TWICE A DAY 60 January 20, 2023 8:57am January 23, 2023 4:50pm 24 hr metoprolol succinate 50 mg extended release oral tablet (20 sources) beta-Adrenergic Antonio Start: 09-08-2024 take 1 tablet by mouth [...] by mouth daily. 0 Active Multivitamin capsule (12 sources) Start: 0 Multivitamin capsule Active 1 NMA PO DAILY December 10, 2019 12:00am Start: 12-10-2019 Multivitamin c apsule Active 1 NMA PO DAILY December 09, 2019 11:00pm Multivitamin preparation (20 sources) Start: 12-10-2019 take 1 capsule by mouth once daily multivitamin Active 1 CAP PO DAILY December 10, 2019 12:00am Start: 12-10-2019 take 1 capsule by mo uth once daily multivitamin Active 1 CAP PO DAILY December 09, 2019 11:00pm nitrofurantoin, macrocrystals 100 mg oral capsule (2 sources) Nitrofuran Antibacterial Start: 09-13-2024 take 1 capsule by mouth twice daily at mealtime Nitrofurantoin Macrocrystal 100 mg capsule Active 100 mg PO TWICE A DAY September 13, 2024 12:00am must administer with a meal/food omeprazole 20 mg delayed release oral capsule [...] 0 Active ondansetron 4 mg oral tablet (4 sources) Serotonin-3 Receptor Antagonist Start: 09-10-2024 take 1 [...] release tablet 2.5 mg polyethylene glycol [id number] mg powder for oral solution (4 sources) [...] 2 mg tablet Active 2 mg PO .QTUWEFR September 10, 2024 12:00am Start: 04-07-2024 End: 04-30-2024 Warfarin 3 mg tablet Discont inued 3 mg PO .QMOTHSASU 90 April 07, 2024 5:46pm April 30, 2024 3:51pm Please contact the information source for Protocol details. Start: 06-19-2023 warfarin (Coum rodrigo) tablet 5 mg Start: 10-15-2022 End: 09-10-2024 Warfarin 2.5 mg tablet Disco ntinued 2.5 mg PO .QTUWEFR 90 April 30, 2024 3:49pm September 10, 2024 [...] Discontinued 200 mg PO TWICE A DAY December 30, 2019 12:00am February 28, 2020 5:40pm amLODIPine 10 mg oral tablet (8 sources) Dihydropyridine Calcium Channel Antonio Start: 07-01-2024 End: 09-10-2024 take 1 tablet [...] propionate 0.05 mg/actuat metered dose nasal spray (19 sources) Corticosteroid Start: 01-20-2023 End: 05-15-2023 Fluticasone [...] mg tablet Discontinued 40 mg PO DAILY 90 December 10, 2019 2:19pm October 15, 2022 [...] week then 1 tablet twice daily thereafter. 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] Onset: 11-27-2018 11-27-2018 Episodic Other aftercare (2 sources) 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; 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: [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] Onset: 04-15-2024 Episodic Other and unspecified benign neoplasm (5 [...] gait] 09-18-2022 Episodic Other nervous system disorders (20 sources) Dysarthria; 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: [Dysarthria and anarthria] 12-27-2022 Episodic Other nervous system disorders (20 sources) Has difficulty with speech; 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: [Unspecified speech disturbances] 12-27-2022 Episodic Other nervous system disorders (6 sources) Unspecified speech disturbances; 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: [Other speech disturbance] Onset: 09-13-2024 12-28-2022 Episodic Other nervous system disorders (4 [...] stenosis; 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: [Spinal stenosis] 05-19-2015 Episodic Syncope (14 sources) Syncope; 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: [Syncope and collapse] 06-16-2023 [...] 11-24-2015 Episodic Other aftercare (1 source) 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 [place], [place], [id number] Venous blood ammonia measure mentOrdered By: Anant Juarez on 09-13-2024 Ammonia (P) [Moles/Vol] 28.9 umol/L [facility] Lamotrigine (Lamictal) Level on 09-12-2024 LAMOTRIGINE 1.2 ug/mL Low 2.0-20.0 [facility] Comment on above: Result Comment: Dete ction Limit = 1.0 Performed at: [facility] [address] [id number] Investigations Chief: Brandon Wells MD, Phone: [phone] Performed By: #### L 100.0100, L500.2500, L300.3900, L3300.4404 ####[facility] [id number] [place], [address] Urine Cultureon 09-12-2024 [facility]RC Klebsiella pneumonia e sp pneum [place] Count 80,000-100,000 Klebsiella pneumoniae sp pneum: REACTION Ampicillin Islt MELINDA Ampicillin+Sulbac Islt MELINDA <=2 S Cefepime Islt MELINDA <=0.12 S cefTRIAXone Islt MELINDA <=0.25 S Ciprofloxacin Islt MELINDA <=0.06 S B-Lactamase Extended Susc Islt NEG Gentamicin Islt MELINDA <=1 S levoFLOXacin Islt MELINDA <=0.12 S Meropenem Islt MELINDA <=0.25 S Nitrofurantoin Islt MELINDA 32 S Pip+Tazo Islt MELINDA <=4 S TMP SMX Islt MELINDA <=20 S Normal [facility] Comment on above: Performed By: #### M 100.2200 ####[facility] [id number] [place], [address] Anion gap in Serum or Plasma Ordered By: Matthew Oro on 09-11-2024 Anion gap [Moles/Vol] 12 mmol/L - [facility] BUN/creatinine ratioOrdered By: Matthew Oro on 09-11-2024 Urea nitrogen/Creatinine [Mass ratio] 30.4 mg/mg High - [facility] Basic Metabolic Profile (BMP )on 09-11-2024 BUN/CRE 30.4 RATIO High [facility]20 [facility] Comment on above: Order Comment: Comme nts: NPO at [place] prior to lipid panel Performed By: #### L 500.4100, L100.0500, L500.2500 #### [facility] Laboratory [address] [place], [address] Calcium [Mass/Vol] 8.8 mg/dL Normal 7.6-11.0 [facility] Comment on above: Order Comment: Comme nts: NPO at [place] prior to lipid panel Performed By: #### L 500.4100, L100.0500, L500.2500 #### [facility] [address] [place], [address] Chloride [Moles/Vol] 105 mmol/L Normal 98-108 [facility] Comment on above: Order Comment: Comme nts: NPO at [place] prior to lipid panel Performed By: #### L 500.4100, L100.0500, L500.2500 #### [facility] [address] [place], [address] CO2 [Moles/Vol] 21.6 mmol/L Normal 21.0-32.0 [facility] Comment on above: Order Comment: Comme nts: NPO at [place] prior to lipid panel Performed By: #### L 500.4100, L100.0500, L500.2500 #### [facility] [address] [place], [address] Creatinine [Mass/Vol] 0.91 mg/dL Normal 0.70-1.20 [facility] Comment on above: Order Comment: Comme nts: NPO at [place] prior to lipid panel Performed By: #### L 500.4100, L100.0500, L500.2500 #### [facility] [address] [place], [address] ECRCL 41.34 ml/min Low 50-250 [facility] Comment on above: Order Comment: Comme nts: NPO at [place] prior to lipid panel Performed By: #### L 500.4100, L100.0500, L500.2500 #### [facility] [address] [place], [address] GAP 12 Normal 5-15 [facility] Comment on above: Order Comment: Comme nts: NPO at [place] prior to lipid panel Performed By: #### L 500.4100, L100.0500, L500.2500 #### [facility] [address] [place], [address] GFR/1.73 sq M.predicted among non-blacks MDRD (S/P/Bld) [Vol rate/Area] 61 mL/min/{1.73_m2} Normal >60 [facility] Comment on above: Order Comment: Comme nts: NPO at [place] prior to lipid panel Result Comment: mL/m in/1.73m2 CKD-EPI Creatinine Equation (2020) Performed By: #### L 500.4100, L100.0500, L500.2500 #### [facility] [address] [place], [address] Glucose [Mass/Vol] 118 mg/dL High 70-99 [facility] Comment on above: Order Comment: Comme nts: NPO at [place] prior to lipid panel Performed By: #### L 500.4100, L100.0500, L500.2500 #### [facility] [address] [place], [address] Potassium [Moles/Vol] 4.4 mmol/L Normal 3.3-5.1 [facility] Comment on above: Order Comment: Comme nts: NPO at [place] prior to lipid panel Performed By: #### L 500.4100, L100.0500, L500.2500 #### [facility] [address] [place], [address] Sodium [Moles/Vol] 139 mmol/L Normal 133-145 [facility] Comment on above: Order Comment: Comme nts: NPO at [place] prior to lipid panel Performed By: #### L 500.4100, L100.0500, L500.2500 #### [facility] [address] [place], [address] Urea nitrogen [Mass/Vol] 28 mg/dL High 4-19 [facility] Comment on above: Order Comment: Comme nts: NPO at [place] prior to lipid panel Performed By: #### L 500.4100, L100.0500, L500.2500 #### [facility] [address] [place], [address] CBC-Complete Blood Cnt No Di ffon 09-11-2024 Erythrocyte distribution width (RBC) [Ratio] 12.8 % Normal 11.6-14.6 [facility] Comment on above: Performed By: #### L 500.4100, L100.0500, L500.2500 #### [facility] [address] [place], [address] Hematocrit (Bld) [Volume fraction] 39.7 % Normal 37-47 [facility] Comment on above: Performed By: #### L 500.4100, L100.0500, L500.2500 #### [facility] [address] [place], [address] Hemoglobin (Bld) [Mass/Vol] 13.1 g/dL Normal 12.0-15.0 [facility] Comment on above: Performed By: #### L 500.4100, L100.0500, L500.2500 #### [facility] [address] [place], [address] MCH (RBC) [Entitic mass] 30.3 pg Normal 27.0-32.0 [facility] Comment on above: Performed By: #### L 500.4100, L100.0500, L500.2500 #### [facility] [address] [place], [address] MCHC (RBC) [Mass/Vol] 33.0 g/dL Normal 32-36 [facility] Comment on above: Performed By: #### L 500.4100, L100.0500, L500.2500 #### [facility] [address] [place], [address] MCV (RBC) [Entitic vol] 91.7 fL Normal 81-99 [facility] Comment on above: Performed By: #### L 500.4100, L100.0500, L500.2500 #### [facility] [address] [place], [address] Platelet mean volume (Bld) [Entitic vol] 10.7 fL Normal 6.2-12.0 [facility] Comment on above: Performed By: #### L 500.4100, L100.0500, L500.2500 #### [facility] [address] [place], [address] Platelets (Bld) [#/Vol] 271 10*3/uL Normal 150-450 [facility] Comment on above: Performed By: #### L 500.4100, L100.0500, L500.2500 #### [facility] [address] [place], [address] RBC (Bld) [#/Vol] 4.33 10*6/uL Normal 4.2-5.4 [facility] Comment on above: Performed By: #### L 500.4100, L100.0500, L500.2500 #### [facility] [address] [place], [address] RDW SD 42.8 fl Normal 35.1-43.9 [facility] Comment on above: Performed By: #### L 500.4100, L100.0500, L500.2500 #### [facility] [address] [place], [address] WBC (Bld) [#/Vol] 12.2 10*3/uL High 4.4-11.0 [facility] Comment on above: Performed By: #### L 500.4100, L100.0500, L500.2500 #### [facility] [address] [place], [address] Calculated very low density lipoprotein (VLDL) cholesterol measurementOrdered By: Matthew Oro on 09-11-2024 Calculated very low density lipoprotein (VLDL) cholesterol measurement 16 mg/dL 5-40 [facility] Carbon dioxide, total [Moles /volume] in Central venous bloodOrdered By: Matthew Oro on 09-11-2024 CO2 [Moles/Vol] 21.6 mmol/L 21.0-32.0 [facility] Chloride assayOrdered By: Urban Oro on 09-11-2024 Chloride [Moles/Vol] 105 mmol/L 98-108 [facility] Discharge Instructionon 08-29 Discharge Instruction [facility] Medical Records Department [address] [place] [address] Instructions for Home/Discharge Instructions 09/11/24 1214 MR#: [id number] Acct: [id number] Name: EZRA GONZALEZ Rep #: [id number] : 1935 89 From: Matthew Oro DO PCP: Dr. Chucky Ochoa, DO Status:ADM MARIELOS Discharge Instructions Diet Discharge Diet: No restrictions DC O2, CPAP, BIPAP needs Home O2 Discharge instructions: No Dressing / Incision Discharge Activity: No Restrictions Follow Up Care Test Results: Test results from this visit will be discussed in further detail at your follow-up appointment, if applicable. Discharge Plan Admission Admit Date/Time: 09/10/24 16:03 Primary Reason for Your Visit: slurred speech Attending Provider: Matthew Oro Primary Care Provider: Chucky Ochoa Consulting Providers: Olivia Trinidad; Janett French; Julia Carpenter; Keyshawn Swan; Dmitriy Diop; Meagan Edmondson; MAMADOU HICKS; Caar Batista; Lorelei Pruett; Robinson Mayorga; Aura Thurman; Eric Crowell; Camila Mitchell; Glenna Jacobson; Lenin Tamez; Ml Morris; Chauncey Vaughn; Nirmal Hummel; Rubén Michel; Iggy Graves; Liz Merrill; Bala Perez; Castillo Jones; Daniel Leroy; Cindy Horn; Ashu Leonard Discharge Orders/Prescriptions Prescriptions: Continued multivitamin Capsule 1 cap PO DAILY atorvastatin 40 mg tablet 40 mg PO QHS ascorbic acid (vitamin C) 250 mg tablet 250 mg PO DAILY diphenhydramine HCl [Allergy (diphenhydramine)] 25 mg tablet 25 mg PO QHS PRN (Reason: allergy symptoms) donepezil 10 mg tablet 10 mg PO QHS Qty: 30 9RF lamotrigine 25 mg tablet 50 mg PO BID Qty: 120 9RF omeprazole 20 mg capsule,delayed release(DR/EC) 20 mg PO DAILY ondansetron HCl 4 mg tablet 4 mg PO Q6H PRN (Reason: nausea and vomiting) warfarin 2 mg tablet 2 mg PO .QTUWEFR diclofenac sodium [Arthritis Pain (diclofenac)] 1 % gel 2 g topical BID calcium carbonate-vitamin D3 [Calcium 600 + D(3)] 600 mg-5 mcg (200 unit) tablet 2 tab PO DAILY irbesartan 300 mg tablet 300 mg PO DAILY acetaminophen [Tylenol Arthritis Pain] 650 mg tablet extended release 650 mg PO Q8H metoprolol succinate 50 mg tablet extended release 24 hr 50 mg PO DAILY warfarin 3 mg tablet 3 mg PO [...] Date: 08/18/24 Rx Instructions: or as directed Referrals / Follow Up: Chucky Ochoa DO [Primary Care Provider] - Disposition Disposition (needs filled in before D/C Order can be placed): Home, Self Care 09/11/24 1440 Matthew Oro CC: Glenna Jacobson; Lorelei Pruett; Bala Perez; Janett French MD; Camila Mitchell MD; Eric Crowell MD; Julia Carpenter MD; Dr. Yogesh Hicks MD; Dr. Olivia Trinidad MD; Dr. Lenin Tamez MD; Dr. Ml Morris MD; Dr. Nirmal Hummel MD; Dr. Chauncey Vaughn MD; Dr. Dmitriy Diop MD; Dr. Rubén Michel DO; Dr. Liz Merrill MD; Dr. Iggy Graves MD; Dr. Castillo Jones MD; Dr. Chucky Ochoa DO; Dr. Daniel Leroy MD; Dr. Cindy Horn MD; Meagan Edmondson MD; Keyshawn Swan MD; Cara Batista DO; Robinson Mayorga MD; Aura Thurman DO; Ashu Leonard MD Signed Normal [facility] Electroencephalogramon 09-11 Electroencephalogram [facility] Pulmonary Services/Neurology [address] [place] [address] MR#: [id number] Acct: [id number] Name: LISAEZRAADAM TRUONG Rep #: [id number] : 1935 89 From: Castillo Jones MD Referring Dr: Status: ADM MARIELOS Location: [place] [address] Date: 09/10/24 Sex: F C EEG Results Procedure Details EEG Procedure Details: Inpatient routine EEG report performed at [facility] Study start time: 1326 on 09/11/24 End Time: 1346 on 09/11/24 History: Rule out seizures ??? Indication: Rule out seizures Technical Description: This is a 18-channel digital EEG recording with time-locked video and single- channel electrocardiogram. Electrodes are placed according to the 10 to 20 International System. The patient was monitored continuously by EEG technicians and EEG recording was reviewed intermittently with annotations to the EEG record. Portions of this record are reviewed using bandpass filters of 1 to 70 Hz and sensitivity of 7mV/mm. ??? EEG DESCRIPTION Background: This recording was obtained during awake and drowsy state. In the maximally alert state, a posterior dominant rhythm of 8 Hz was seen. There was also generalized intermittent slowing of frontally predominant delta activity intermixed with theta frequencies. During drowsiness, there was attenuation of the waking background. Activation Procedures: Photic stimulation was performed. No abnormal or epileptic activity was triggered by this procedure. Sporadic Epileptiform Discharges: Sharp waves seen over the L temporal region max T7 > F7 Focal slow activity: Left hemispheric intermittent slowing most prominent over the temporal region Rhythmic or Periodic activity: none ??? Seizures: none Patient Events: none EEG DIAGNOSIS: Abnormal ??? 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 No seizures were seen. There is also evidence of mild diffuse encephalopathy. Nguyen Jones MD 09/11/24 1502 Date Castillo Jones MD CC: Dr. Matthew Oro DO; Dr. Castillo Jones MD; Dr. Chucky Ochoa DO Date Dictated: 09/11/24 150 Date Transcribed: 09/11/241501 Back Tender: RI Signed Normal [facility] Erythrocyte distribution wid th ratioOrdered By: Matthew Oro on 09-11-2024 Erythrocyte distribution width (RBC) [Ratio] 12.8 % 11.6-14.6 [facility] Erythrocyte distribution wid th standard deviationOrdered By: Matthew Oro on 09-11-2024 Erythrocyte distribution width (RBC) [Ratio] 42.8 fl 35.1-43.9 [facility] Glomerular filtration rate ( GFR) estimation/1.73 sq m using serum, plasma, or whole bOrdered By: Matthew Oro on 09-11-2024 GFR/1.73 sq M.predicted among non-blacks MDRD (S/P/Bld) [Vol rate/Area] 61 mL/min/{1.73_m2} >60 [facility] Comment on above: mL/min/1.73m2 CKD-EP I Creatinine Equation (2020) Hematocrit Auto (Bld) [Volum e fraction]Ordered By: Matthew Oro on 09-11-2024 Hematocrit (Bld) [Volume fraction] 39.7 % 37-47 [facility] Hemoglobin measurementOrdere d By: Matthew Oro on 09-11-2024 Hemoglobin (Bld) [Mass/Vol] 13.1 g/dL 12.0-15.0 [facility] LDL calc ser/plasOrdered By: Matthew Oro on 09-11-2024 Cholesterol in LDL [Mass/Vol] 100 mg/dL [facility] Comment on above: Ldlmdhaxtg=416-366 m g/dL & Higher Hfjf=886 mg/dL or greater Lipid Profileon 09-11-2024 CHOL:HDL 3.03 Normal [facility] Comment on above: Order Comment: Comme nts: NPO at [place] prior to lipid panel Performed By: #### L 500.4100, L100.0500, L500.2500 ####[facility] [address] [facility] [place], [address] Cholesterol [Mass/Vol] 172 mg/dL Normal <=200 [facility] Comment on above: Order Comment: Comme nts: NPO at [place] prior to lipid panel Result Comment: Chol esterol level, Desirable <200 mg/dL Borderline high cholesterol 200-239 mg/dL High cholesterol >=240 mg/dL Recommendations of the NCEP Adult Treatment Panel for the following risk-cutoff thresholds for the [place] population. Performed By: #### L 500.4100, L100.0500, L500.2500 ####[facility] [address] [place], [address] Cholesterol in HDL [Mass/Vol] 57 mg/dL Normal [facility] Comment on above: Order Comment: Comme nts: NPO at [place] prior to lipid panel Result Comment: Halima onal Cholesterol Education Program (NCEP) guidelines: <40 mg/dL: Low HDL-cholesterol (major risk factor for CHD) >= 60 mg/dL: High HDL-cholesterol (negative risk factor for CHD) HDL-cholesterol is affected by a number of factors, e.g. smoking, exercise, hormones, sex and age. Performed By: #### L 500.4100, L100.0500, L500.2500 ####[facility] [address] [place], [address] Cholesterol in LDL [Mass/Vol] 100 mg/dL Normal [facility] Comment on above: Order Comment: Comme nts: NPO at [place] prior to lipid panel Result Comment: Bord phexzs=618-367 mg/dL Higher Yezq=810 mg/dL or greater Performed By: #### L 500.4100, L100.0500, L500.2500 ####[facility] [address] [place], [address] Cholesterol in VLDL [Mass/Vol] 16 mg/dL Normal 5-40 [facility] Comment on above: Order Comment: Comme nts: NPO at [place] prior to lipid panel Performed By: #### L 500.4100, L100.0500, L500.2500 ####[facility] [address] [place], [address] Triglyceride [Mass/Vol] 78 mg/dL Normal [facility] Comment on above: Order Comment: Comme nts: NPO at [place] prior to lipid panel Result Comment: The drugs N-Acetylcysteine and Metamizole may falsely depress this assay. Normal range: <150 mg/dL Borderline High: 150-199 mg/dL High: 200-499 mg/dL Very High: >500 mg/dL Performed By: #### L 500.4100, L100.0500, L500.2500 ####[facility] [address] [place], [address] MCV (mean corpuscular volume ) determinationOrdered By: Matthew Oro on 09-11-2024 MCV (RBC) [Entitic vol] 91.7 fL 81-99 [facility] Mean corpuscular hemoglobin (MCH) determinationOrdered By: Matthew Oro on 09-11-2024 MCH (RBC) [Entitic mass] 30.3 pg 27.0-32.0 [facility] Mean corpuscular hemoglobin concentration (MCHC) determinationOrdered By: Matthew Oro on 09-11-2024 MCHC (RBC) [Mass/Vol] 33.0 g/dL 32-36 [facility] Mean platelet volume determi nationOrdered By: Matthew Oro on 09-11-2024 Platelet mean volume (Bld) [Entitic vol] 10.7 fL 6.2-12.0 [facility] Platelet countOrdered By: Urban Oro on 09-11-2024 Platelets (Bld) [#/Vol] 271 10*3/uL 150-450 [facility] Potassium measurement (mass/ volume)Ordered By: Matthew Oro on 09-11-2024 Potassium (Unsp spec) [Mass/Vol] 4.4 mmol/L 3.3-5.1 [facility] RBC Auto (Bld) [#/Vol]Ordere d By: Matthew Oro on 09-11-2024 RBC (Bld) [#/Vol] 4.33 10*6/uL 4.2-5.4 [facility] Screening total cholesterol/ high density lipoprotein (HDL) cholesterol ratioOrdered By: Matthew Oro on 09-11-2024 Cholesterol.total/Cholest felipe in HDL [Mass ratio] 3.03 {ratio} [facility] Serum creatinine measurement (mass/volume)Ordered By: Matthew Oro on 09-11-2024 Creatinine [Mass/Vol] 0.91 mg/dL 0.70-1.20 [facility] Serum glucose measurement (m ass/volume)Ordered By: Matthew Oro on 09-11-2024 Glucose [Mass/Vol] 118 mg/dL High 70-99 [facility] Serum or plasma calcium viktoria urement (mass/volume)Ordered By: Matthew Oro on 09-11-2024 Calcium [Mass/Vol] 8.8 mg/dL 7.6-11.0 [facility] Serum or plasma cholesterol in HDL measurement (mass/volume)Ordered By: Matthew Oro on 09-11-2024 Cholesterol in HDL [Mass/Vol] 57 mg/dL >40 [facility] Comment on above: National Cholesterol Education Program (NCEP) guidelines:<40 mg/dL: Low HDL-cholesterol (major risk factor for CHD)>= 60 mg/dL: High HDL-cholesterol (negative risk factor for CHD)HDL-cholesterol is affected by a number of factors, e.g. smoking, exercise, hormones, sex and age. Serum or plasma cholesterol measurement (mass/volume)Ordered By: Matthew Oro on 09-11-2024 Cholesterol [Mass/Vol] 172 mg/dL <201 [facility] Comment on above: Cholesterol level, D esirable <200 mg/dLBorderline high cholesterol 200-239 mg/dLHigh cholesterol >=240 mg/dLRecommendations of the NCEP Adult Treatment Panel for the following risk-cutoff thresholds for the [place] population. Serum or plasma urea nitroge n measurement (mass/volume)Ordered By: Matthew Oro on 09-11-2024 Urea nitrogen [Mass/Vol] 28 mg/dL High 4-19 [facility] Sodium levelOrdered By: All Oro on 09-11-2024 Sodium [Moles/Vol] 139 mmol/L 133-145 [facility] Triglycerides measurementOrd ered By: Matthew Oro on 09-11-2024 Triglyceride [Mass/Vol] 78 mg/dL <199 [facility] Comment on above: The drugs N-Acetylcy steine and Metamizole may falsely depress this assay. Normal range: <150 mg/dLBorderline High: 150-199 mg/dLHigh: 200-499 mg/dLVery High: >500 mg/dL White blood cell (WBC) count Ordered By: Matthew Oro on 09-11-2024 WBC (Bld) [#/Vol] 12.2 10*3/uL High 4.4-11.0 [facility] Absolute lymphocyte countOrd ered By: Teri Garcia on 09-10-2024 Lymphocytes Auto (Unsp spec) [#/Vol] 1.91 10*3/uL 0.83-4.51 [facility] Absolute neutrophil countOrd ered By: Teri Garcia on 09-10-2024 Neutrophils (Bld) [#/Vol] 8.3 10*3/uL High 2.0-7.7 [facility] Activated partial thrombopla stin time (aPTT) in platelet poor plasma by coagulation aOrdered By: Teri Garcia on 09-10-2024 aPTT Coag (PPP) [Time] 31.8 s 24.1-36.2 [facility] Anion gap in Serum or Plasma Ordered By: Teri Garcia on 09-10-2024 Anion gap [Moles/Vol] 12 mmol/L 5-15 [facility] Automated lymphocyte count a s percentage of total leukocytesOrdered By: Teri Garcia on 09-10-2024 Lymphocytes/100 WBC Auto (Unsp spec) 16.6 % Low 19-41 [facility] BUN/creatinine ratioOrdered By: Teri Garcia on 09-10-2024 Urea nitrogen/Creatinine [Mass ratio] 34.8 mg/mg High 10-20 [facility] Basic Metabolic Profile (BMP )on 09-10-2024 BUN/CRE 34.8 RATIO High 10-20 [facility] Comment on above: Performed By: #### L 300.4310, L500.2500, L100.0100, L501.4021, L300.3900 ####[facility] [address] [place], [address] Calcium [Mass/Vol] 8.7 mg/dL Normal 7.6-11.0 [facility] Comment on above: Performed By: #### L 300.4310, L500.2500, L100.0100, L501.4021, L300.3900 ####[facility] [address] [place], [address] Chloride [Moles/Vol] 103 mmol/L Normal 98-108 [facility] Comment on above: Performed By: #### L 300.4310, L500.2500, L100.0100, L501.4021, L300.3900 ####[facility] [address] [place], [address] CO2 [Moles/Vol] 21.8 mmol/L Normal 21.0-32.0 [facility] Comment on above: Performed By: #### L 300.4310, L500.2500, L100.0100, L501.4021, L300.3900 ####[facility] [address] [place], [address] Creatinine [Mass/Vol] 1.05 mg/dL Normal 0.70-1.20 [facility] Comment on above: Performed By: #### L 300.4310, L500.2500, L100.0100, L501.4021, L300.3900 ####[facility] [address] [place], [address] ECRCL 33.63 ml/min Low 50-250 [facility] Comment on above: Performed By: #### L 300.4310, L500.2500, L100.0100, L501.4021, L300.3900 ####[facility] [address] [place], [address] GAP 12 Normal 5-15 [facility] Comment on above: Performed By: #### L 300.4310, L500.2500, L100.0100, L501.4021, L300.3900 ####[facility] [address] [place], [address] GFR/1.73 sq M.predicted among non-blacks MDRD (S/P/Bld) [Vol rate/Area] 51 mL/min/{1.73_m2} Low >60 [facility] Comment on above: Result Comment: mL/m in/1.73m2 CKD-EPI Creatinine Equation (2020) Performed By: #### L 300.4310, L500.2500, L100.0100, L501.4021, L300.3900 ####[facility] [address] [place], [address] Glucose [Mass/Vol] 131 mg/dL High 70-99 [facility] Comment on above: Performed By: #### L 300.4310, L500.2500, L100.0100, L501.4021, L300.3900 ####[facility] [address] [place], [address] Potassium [Moles/Vol] 4.4 mmol/L Normal 3.3-5.1 [facility] Comment on above: Result Comment: Hemo lysis present, Results??could be affected. ?? Performed By: #### L 300.4310, L500.2500, L100.0100, L501.4021, L300.3900 ####[facility] [address] [place], [address] Sodium [Moles/Vol] 137 mmol/L Normal 133-145 [facility] Comment on above: Performed By: #### L 300.4310, L500.2500, L100.0100, L501.4021, L300.3900 ####[facility] [address] [place], [address] Urea nitrogen [Mass/Vol] 37 mg/dL High 4-19 [facility] Comment on above: Performed By: #### L 300.4310, L500.2500, L100.0100, L501.4021, L300.3900 ####[facility] [address] [place], [address] Basophil percentageOrdered B y: Teri Garcia on 09-10-2024 Basophils/100 WBC (Bld) 0.4 % 0-1 [facility] Bilirubin Test strip Ql (U)O rdered By: Teri Garcia on 09-10-2024 Bilirubin Ql (U) Negative Negative [facility] Brain without Contraston Brain without Contrast [facility] Imaging Services [address] [place] [address] Brain without Contrast MR#: [id number] Acct: [id number] Name: EZRA GONZALEZ Rep #: [id number] : 1935 F 89 From: Matthias Márquez MD PCP: Dr. Chucky Ochoa DO Status: ADM MARIELOS Study: Brain without Contrast Date of Exam: 09/10/24 Exam# [id number] Ordering Dr: Matthew Oro DO PROCEDURE: BRAIN WITHOUT CONTRAST 09/10/2024 REASON FOR EXAM: CVA R/O TECHNIQUE: Noncontrast brain MRI. Multiplanar and multisequence images were obtained. FINDINGS: There is no abnormal diffusion to suggest an acute infarct. There is moderate cerebral atrophy with compensatory ventricular dilatation. There is mild periventricular chronic microvascular change. There is no acute or chronic hemorrhage. There is bilateral hippocampal atrophy which is not a symmetric. The craniovertebral junction is unremarkable MRI/Brain without Contrast IMPRESSION: Atrophy and mild microvascular changes Reading Location: [facility] CC: Dr. Matthew Oro DO; Dr. Chucky Ochoa DO Back Tender: Signed Normal [facility] CBC W/Diff, Automatedon 08-29 Absolute Lymph 1.91 X10 3/uL Normal 0.83-4.51 [facility] Comment on above: Performed By: #### L 300.4310, L500.2500, L100.0100, L501.4021, L300.3900 ####[facility] [address] [place], [address] Absolute Neut 8.3 X10 3/uL High 2.0-7.7 [facility] Comment on above: Performed By: #### L 300.4310, L500.2500, L100.0100, L501.4021, L300.3900 ####[facility] [address] [place], [address] Basophils/100 WBC (Bld) 0.4 % Normal 0-1 [facility] Comment on above: Performed By: #### L 300.4310, L500.2500, L100.0100, L501.4021, L300.3900 ####[facility] [address] [place], [address] Eosinophils/100 WBC (Bld) 1.2 % Normal 0-5 [facility] Comment on above: Performed By: #### L 300.4310, L500.2500, L100.0100, L501.4021, L300.3900 ####[facility] [address] [place], [address] Erythrocyte distribution width (RBC) [Ratio] 13.2 % Normal 11.6-14.6 [facility] Comment on above: Performed By: #### L 300.4310, L500.2500, L100.0100, L501.4021, L300.3900 ####[facility] [address] [place], [address] Hematocrit (Bld) [Volume fraction] 41.7 % Normal 37-47 [facility] Comment on above: Performed By: #### L 300.4310, L500.2500, L100.0100, L501.4021, L300.3900 ####[facility] [address] [place], [address] Hemoglobin (Bld) [Mass/Vol] 13.6 g/dL Normal 12.0-15.0 [facility] Comment on above: Performed By: #### L 300.4310, L500.2500, L100.0100, L501.4021, L300.3900 ####[facility] [address] [place], [address] IG% 0.400 Normal 0.0-0.9 [facility] Comment on above: Result Comment: IG% - Immature Granulocytes (promyelocytes, myelocytes and metamyelocytes) > 1% indicates that a LEFT SHIFT is Present. Performed By: #### L 300.4310, L500.2500, L100.0100, L501.4021, L300.3900 ####[facility] [address] [place], [address] Lymphocytes/100 WBC (Bld) 16.6 % Low 19-41 [facility] Comment on above: Performed By: #### L 300.4310, L500.2500, L100.0100, L501.4021, L300.3900 ####[facility] [address] [place], [address] MCH (RBC) [Entitic mass] 30.6 pg Normal 27.0-32.0 [facility] Comment on above: Performed By: #### L 300.4310, L500.2500, L100.0100, L501.4021, L300.3900 ####[facility] [address] [place], [address] MCHC (RBC) [Mass/Vol] 32.6 g/dL Normal 32-36 [facility] Comment on above: Performed By: #### L 300.4310, L500.2500, L100.0100, L501.4021, L300.3900 ####[facility] [address] [place], [address] MCV (RBC) [Entitic vol] 93.9 fL Normal 81-99 [facility] Comment on above: Performed By: #### L 300.4310, L500.2500, L100.0100, L501.4021, L300.3900 ####[facility] [address] [place], [address] Monocytes/100 WBC (Bld) 9.1 % Normal 0-10 [facility] Comment on above: Performed By: #### L 300.4310, L500.2500, L100.0100, L501.4021, L300.3900 ####[facility] [address] [place], [address] Neutrophils/100 WBC (Bld) 72.3 % High 47-70 [facility] Comment on above: Performed By: #### L 300.4310, L500.2500, L100.0100, L501.4021, L300.3900 ####[facility] [address] [place], [address] Nucleated RBC (Bld) [#/Vol] 0 10*3/uL Normal 0-5 [facility] Comment on above: Performed By: #### L 300.4310, L500.2500, L100.0100, L501.4021, L300.3900 ####[facility] [address] [place], [address] Platelet mean volume (Bld) [Entitic vol] 10.4 fL Normal 6.2-12.0 [facility] Comment on above: Performed By: #### L 300.4310, L500.2500, L100.0100, L501.4021, L300.3900 ####[facility] [address] [place], [address] Platelets (Bld) [#/Vol] 269 10*3/uL Normal 150-450 [facility] Comment on above: Performed By: #### L 300.4310, L500.2500, L100.0100, L501.4021, L300.3900 ####[facility] [address] [place], [address] RBC (Bld) [#/Vol] 4.44 10*6/uL Normal 4.2-5.4 [facility] Comment on above: Performed By: #### L 300.4310, L500.2500, L100.0100, L501.4021, L300.3900 ####[facility] [address] [place], [address] RDW SD 45.4 fl High 35.1-43.9 [facility] Comment on above: Performed By: #### L 300.4310, L500.2500, L100.0100, L501.4021, L300.3900 ####[facility] [address] [place], [address] WBC (Bld) [#/Vol] 11.5 10*3/uL High 4.4-11.0 [facility] Comment on above: Performed By: #### L 300.4310, L500.2500, L100.0100, L501.4021, L300.3900 ####[facility] [address] [place], [address] Carbon dioxide, total [Moles /volume] in Central venous bloodOrdered By: Teri Garcia on 09-10-2024 CO2 [Moles/Vol] 21.8 mmol/L 21.0-32.0 [facility] Chloride assayOrdered By: Adam Garcia on 09-10-2024 Chloride [Moles/Vol] 103 mmol/L 98-108 [facility] Emergency Department Summary on 09-10-2024 Emergency Department Summary [facility] Medical Records Department [address] [place] [address] Emergency Department Summary 09/10/24 MR#: [id number] Acct: [id number] Name: EZRA GONZALEZ Rep #: [id number] : 1935 89 From: Teri Garcia DO PCP: Dr. Chucky Ochoa, DO Status:REG ER [...] son Wilfredo (her eldest son) phone number [phone]. He states that she follows with Dr. Juarez (neurology) and he suspects that this could be epileptic episodes. He also tells me that he talk to her about 615 this morning and she seemed a little off with her mentation as well as her pronunciation. 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) Persistent atrial fibrillation Chronic kidney disease (CKD) Spinal stenosis Osteoarthritis Atherosclerotic heart disease of [place] coronary artery without angina pectoris Type 2 diabetes mellitus Essential (primary) hypertension Hyperlipidemia Obesity Pleural effusion on right (09/2019) Paroxysmal atrial fibrillation Home Medications ???Medication ???Instructions ???Recorded ???Last Taken ???Type multivitamin 1 cap PO DAILY 12/10/19 12/27/22 H istory omeprazole 20 mg capsule,delayed 20 mg PO DAILY reflux 11/14/22 History release atorvastatin 40 mg tablet 40 mg PO QHS 01/20/23 Unknown Hist ory ascorbic acid (vitamin C) 250 mg 250 mg PO DAILY 05/19/23 Unknown H istory tablet diphenhydramine HCl 25 mg tablet 25 mg PO QHS PRN allergy symptoms 05/19/23 Unknown History (Allergy (diphenhydramine)) warfarin 3 mg tablet 3 mg PO .QMOTHSASU #90 tabs Unknown Rx donepezil 10 mg tablet 10 mg PO QHS #30 tabs 05/10/24 Unk nown Rx lamotrigine 25 mg tablet 50 mg (2 x 25 mg) PO BID #120 tabs 05/10/24 Unknown Rx acetaminophen 650 mg 650 mg PO Q8H 09/08/24 Unknown His tory tablet,extended release (Tylenol Arthritis Pain) irbesartan 300 mg tablet 300 mg PO DAILY 09/08/24 Unknown H istory metoprolol succinate 50 mg 50 mg PO DAILY 09/08/24 Unknown Hi story tablet,extended release 24 hr calcium 600 mg (as 2 tab PO DAILY 09/10/24 Unknown Hi story carbonate)-vitamin D3 5 mcg (200 unit) tablet (Calcium 600 + D(3)) diclofenac sodium 1 % topical gel 2 g topical BID 09/10/24 Unknown History (Arthritis Pain (diclofenac)) ondansetron HCl 4 mg tablet 4 mg PO Q6H PRN nausea and vomitin g 09/10/24 Unknown History warfarin 2 mg tablet 2 mg PO .QTUWETH 09/10/24 Unknown History Allergy/AdvReac Type Severity Reaction Status Date [...] artery disease) Surgical History History of kyphoplasty ( 05/2020) History of left heart catheterization (12/27/19) History of left hip replacement History of repair of rotator cuff History of knee replacement History of coronary artery stent placement (02/14/07) History of radiofrequency ablation procedure for cardiac arrhythmia (2011) Social History housing: assisted living facility Smoking Status: Former smoker how long ago did patient quit smokin years (more content not included)... Normal [facility] Eosinophil percentageOrdered By: Teri Garcia on 09-10-2024 Eosinophils/100 WBC (Bld) 1.2 % 0-5 [facility] Erythrocyte distribution wid th ratioOrdered By: Teri Jose on 09-10-2024 Erythrocyte distribution width (RBC) [Ratio] 13.2 % 11.6-14.6 [facility] Erythrocyte distribution wid th standard deviationOrdered By: Teri Garcia on 09-10-2024 Erythrocyte distribution width (RBC) [Ratio] 45.4 fl High 35.1-43.9 [facility] Glomerular filtration rate ( GFR) estimation/1.73 sq m using serum, plasma, or whole bOrdered By: Teri Garcia on 09-10-2024 GFR/1.73 sq M.predicted among non-blacks MDRD (S/P/Bld) [Vol rate/Area] 51 mL/min/{1.73_m2} Low >60 [facility] Comment on above: mL/min/1.73m2 CKD-EP I Creatinine Equation (2020) H AND P Exam - Hospitaliston 09-10-2024 H&P Exam - Hospitalist [facility] Medical Records Department [address] [place] [address] H P Exam - Hospitalist 09/10/24 1603 MR#: [id number] Acct: [id number] Name: EZRA GONZALEZ Rep #: [id number] : 1935 89 From: Matthew Oro DO PCP: Dr. Chucky Ochoa, DO Status:ADM MARIELOS Location: [place] [address] HPI - General General Date of Admission: 09/10/24 Date of Service: 09/10/24 Chief Complaint: Dysarthria HPI Narrative EZRA GONZALEZ, is a 89 F who presented to [facility] ED on 09/10/2024 with dysarthria. Patient lives at assisted living at [place]. Has history of seizures and is on Lamictal. She follows with Dr. Juarez with neurology. Developed acute onset dysarthria today at noon. Has apparently had similar episodes like this in the past and Dr. Juarez suspects that they may be epileptic episodes. Patient's speech returned to normal after about [address] brain was negative. CTA head/neck did show carotid stenosis but this was stable from previous. She notably is on Coumadin for A-fib and atorvastatin for history of CAD with stenting. INR was therapeutic on admission. On discussion with [facility] neurology, recommendation was for admission for MRI brain and routine EEG for further evaluation. Hospitalist was then contacted for admission. I saw the patient at bedside in the ED. She was sitting back comfortably in bed, in no acute distress. She had no dysarthria during our encounter. She does report feeling somewhat frustrated by these episodes and that there has not been a clear reason given for them. She denies any other acute concerns at this time. 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) Persistent atrial fibrillation Chronic kidney disease (CKD) Spinal stenosis Osteoarthritis Atherosclerotic heart disease of [place] coronary artery without angina pectoris Type 2 diabetes mellitus Essential (primary) hypertension Hyperlipidemia Obesity Pleural effusion on right (09/2019) Paroxysmal atrial fibrillation Home Medications ???Medication ???Instructions ???Recorded ???Last Taken ???Type multivitamin 1 cap PO DAILY 12/10/19 12/27/22 H istory omeprazole 20 mg capsule,delayed 20 mg PO DAILY reflux 11/14/22 History release atorvastatin 40 mg tablet 40 mg PO QHS 01/20/23 Unknown Hist ory ascorbic acid (vitamin C) 250 mg 250 mg PO DAILY 05/19/23 Unknown H istory tablet diphenhydramine HCl 25 mg tablet 25 mg PO QHS PRN allergy symptoms 05/19/23 Unknown History (Allergy (diphenhydramine)) warfarin 3 mg tablet 3 mg PO .QMOTHSASU #90 tabs Unknown Rx donepezil 10 mg tablet 10 mg PO QHS #30 tabs 05/10/24 Unk nown Rx lamotrigine 25 mg tablet 50 mg (2 x 25 mg) PO BID #120 tabs 05/10/24 Unknown Rx acetaminophen 650 mg 650 mg PO Q8H 09/08/24 Unknown His tory tablet,extended release (Tylenol Arthritis Pain) irbesartan 300 mg tablet 300 mg PO DAILY 09/08/24 Unknown H istory metoprolol succinate 50 mg 50 mg PO DAILY 09/08/24 Unknown Hi story tablet,extended release 24 hr calcium 600 mg (as 2 tab PO DAILY 09/10/24 Unknown Hi story carbonate)-vitamin D3 5 mcg (200 unit) tablet (Calcium 600 + D(3)) diclofenac sodium 1 % topical gel 2 g topical BID 09/10/24 Unknown History (Arthritis Pain (diclofenac)) ondansetron HCl 4 mg tablet 4 mg PO Q6H PRN nausea and vomitin g 09/10/24 Unknown History warfarin 2 mg tablet 2 mg PO .QTUWETH 09/10/24 Unknown History Allergy/AdvReac Type Severity Reaction Status Date [...] artery disease) Surgical History History of kyphoplasty ( 05/2020) History of left heart catheterization (12/27/19) History of left hip replacement History of repair of rotator cuff History of knee replacement History of coronary artery stent placement (02/14/07) History of radiofrequency ablation procedure for cardiac a (more content not included)... Normal [facility] Hematocrit Auto (Bld) [Volum e fraction]Ordered By: Teri Garcia on 09-10-2024 Hematocrit (Bld) [Volume fraction] 41.7 % 37-47 [facility] Hemoglobin measurementOrdere d By: Teri Garcia on 09-10-2024 Hemoglobin (Bld) [Mass/Vol] 13.6 g/dL 12.0-15.0 [facility] Immature granulocytes/100 WB C Auto (Bld)Ordered By: Teri Garcia on 09-10-2024 Immature granulocytes/100 WBC (Bld) 0.400 % 0.0-0.9 [facility] Comment on above: IG% - Immature Granu locytes (promyelocytes, myelocytes and metamyelocytes) > 1% indicates that a LEFT SHIFT is Present. International normalized rat io (INR) calculationOrdered By: Teri Garcia on 09-10-2024 INR Coag (Bld) [Relative time] 2.4 {INR} [facility] Ketones Test strip Ql (U)Ord ered By: Teri Garcia on 09-10-2024 Ketones Ql (U) Negative Negative [facility] L499.0042on 09-10-2024 Trop T High Sen 17 ng/L High <=14 [facility] Comment on above: Performed By: #### L 499.0042 ####[facility] [address] [place], [address] L499.0043on 09-10-2024 Trop T High Sen 15 ng/L High <=14 [facility] Comment on above: Performed By: #### L 499.0043 #### [facility] Laboratory [address] [place], [address] L501.4021on 09-10-2024 Trop T High Sen 18 ng/L High <=14 [facility] Comment on above: Performed By: #### L 300.4310, L500.2500, L100.0100, L501.4021, L300.3900 ####[facility] [address] [place], [address] MCV (mean corpuscular volume ) determinationOrdered By: Teri Garcia on 09-10-2024 MCV (RBC) [Entitic vol] 93.9 fL 81-99 [facility] Magnetic resonance imaging r eportOrdered By: Matthias Márquez on 09-10-2024 Study report [facility] Imaging Services [address] [place], [place] [address] Brain without Contrast MR#: [id number] Acct: [id number] Name: EZRA GONZALEZ Rep #: [id number] : 1935 F 89 From: Bill Márquez MD PCP: Dr. Chucky Ochoa DO Status: ADM MARIELOS Study:Brain without Contrast Date of Exam: 09/10/24 Exam# [id number] Ordering Dr: Matthew Patel DO PROCEDURE: BRAIN WITHOUT CONTRAST 09/10/2024 REASON FOR EXAM: CVA R/O TECHNIQUE: Noncontrast brain MRI. Multiplanar and multisequence images were obtained. FINDINGS: There is no abnormal diffusion to suggest an acute infarct. There is moderate cerebral atrophy with compensatory ventricular dilatation. There is mild periventricular chronic microvascular change. There is no acute or chronic hemorrhage. There is bilateral hippocampal atrophy which is not a symmetric. The craniovertebral junction is unremarkable MRI/Brain without Contrast IMPRESSION: Atrophy and mild microvascular changes Reading Location: [facility] CC: Dr. Matthew Oro DO; Dr. Chucky Ochoa DO ~ Back Tender: Signed [facility] Mean corpuscular hemoglobin (MCH) determinationOrdered By: Teri Garcia on 09-10-2024 MCH (RBC) [Entitic mass] 30.6 pg 27.0-32.0 [facility] Mean corpuscular hemoglobin concentration (MCHC) determinationOrdered By: Teri Garcia on 09-10-2024 MCHC (RBC) [Mass/Vol] 32.6 g/dL 32-36 [facility] Mean platelet volume determi nationOrdered By: Teri Garcia on 09-10-2024 Platelet mean volume (Bld) [Entitic vol] 10.4 fL 6.2-12.0 [facility] Microscopic analysis of urin e for red blood cells (RBC)Ordered By: Teri Garcia on 09-10-2024 Microscopic analysis of urine for red blood cells (RBC) 0 SEEN /hpf 0-5 [facility] Monocyte percentageOrdered B y: Teri Garcia on 09-10-2024 Monocytes/100 WBC (Bld) 9.1 % 0-10 [facility] Mucus LM Ql (Urine sed)Order ed By: Teri Garcia on 09-10-2024 Mucus Ql (Urine sed) 0 SEEN /hpf [facility] Neutrophil percentageOrdered By: Teri Garcia on 09-10-2024 Neutrophils/100 WBC (Bld) 72.3 % High 47-70 [facility] Nitrite Test strip Ql (U)Ord ered By: Teri Garcia on 09-10-2024 Nitrite Ql (U) Negative Negative [facility] Nucleated red blood cell per centageOrdered By: Teri Garcia on 09-10-2024 Nucleated RBC/100 WBC (Bld) [Ratio] 0 % 0-5 [facility] Partial Thromboplast Timeon 09-10-2024 aPTT Coag (Bld) [Time] 31.8 s Normal 24.1-36.2 [facility] Comment on above: Performed By: #### L 300.4310, L500.2500, L100.0100, L501.4021, L300.3900 ####[facility] [address] [place], [place], [id number] Platelet countOrdered By: Adam Garcia on 09-10-2024 Platelets (Bld) [#/Vol] 269 10*3/uL 150-450 [facility] Potassium measurement (mass/ volume)Ordered By: Teri Garcia on 09-10-2024 Potassium (Unsp spec) [Mass/Vol] 4.4 mmol/L 3.3-5.1 [facility] Comment on above: Hemolysis present, R esults could be affected. Protein Test strip Ql (U)Ord ered By: Teri Garcia on 09-10-2024 Protein Ql (U) 30 mg/dl High Negative [facility] Prothrombin Time w/INRon INR Coag (PPP) [Relative time] 2.4 {INR} Normal [facility] Comment on above: Performed By: #### L 300.4310, L500.2500, L100.0100, L501.4021, L300.3900 ####[facility] [address] [place], [address] PT Coag (PPP) [Time] 26.4 s High 11.7-14.9 [facility] Comment on above: Performed By: #### L 300.4310, L500.2500, L100.0100, L501.4021, L300.3900 ####[facility] [address] [place], [address] Prothrombin timeOrdered By: Teri Garcia on 09-10-2024 PT Coag (PPP) [Time] 26.4 s High 11.7-14.9 [facility] RBC Auto (Bld) [#/Vol]Ordere d By: Teri Garcia on 09-10-2024 RBC (Bld) [#/Vol] 4.44 10*6/uL 4.2-5.4 [facility] STROKE Brain/Head without Co nton 09-10-2024 STROKE Brain/Head without Cont [facility] Imaging Services [address] [place], [place] [address] STROKE Brain/Head without Cont MR#: [id number] Acct: [id number] Name: EZRA GONZALEZ Rep #: [id number] : 1935 F 89 From: Mio nayak MD PCP: Dr. Chucky Ochoa DO Status: [facility] ER Study: STROKE Brain/Head without Cont Date of Exam: 0 09/10/24 Exam# [id number] Ordering Dr: Teri Garcia DO PROCEDURE: STROKE BRAIN/HEAD WITHOUT CONT 09/10/2024 REASON FOR EXAM: NEURO DEFICIT, ACUTE, STROKE SUSPECTED TECHNIQUE: Head CT without intravenous contrast. Coronal and Sagittal reconstruction series were provided. One or more dose reduction techniques [...] 2:05 pm with readback verification. Reading Location: [id number] CC: Dr. Teri Garcia DO; Dr. Chucky Ochoa DO Back Tender: Signed Normal [facility] STROKE CTA Head AND Neck W/C onon 09-10-2024 STROKE CTA Head AND Neck W/Con [facility] Imaging Services [address] [place] [address] STROKE CTA Head AND Neck W/Con MR#: [id number] Acct: [id number] Name: EZRA GONZALEZ Rep #: [id number] : 1935 F 89 From: Mio nayak MD PCP: Dr. Chucky Ochoa DO Status: REG ER Study: STROKE CTA Head AND Neck W/Con Date of Exam: 0 09/10/24 Exam# [id number] Ordering Dr: Teri Garcia DO PROCEDURE: STROKE CTA HEAD AND [...] Brachiocephalic and Subclavians: Mild atherosclerotic plaque without significant stenosis. RIGHT Carotid: Right CCA: Unremarkable. Right ICA: Moderate calcified and soft plaque. Maximum stenosis (NASCET): 60 % Right ECA: Unremarkable. LEFT Carotid: Left CCA: Unremarkable. Left ICA: Moderate calcified and soft plaque. Maximum stenosis (NASCET): 60 % Left ECA: Unremarkable. Vertebrals: Codominant. Arise from the subclavians. Both vertebrals form the basilar. RIGHT Vertebral: Unremarkable. LEFT Vertebral: Unremarkable. Anatomy: [place] anatomy is normal. Aneurysm or [...] 3:01 pm with readback verification. Reading Location: [id number] CC: Dr. Teri Garcia, DO; Dr. Chucky Ochoa, DO Back Tender: Signed Normal [facility] Serum creatinine measurement (mass/volume)Ordered By: Teri Garcia on 09-10-2024 Creatinine [Mass/Vol] 1.05 mg/dL 0.70-1.20 [facility] Serum glucose measurement (m ass/volume)Ordered By: Teri Garcia on 09-10-2024 Glucose [Mass/Vol] 131 mg/dL High 70-99 [facility] Serum or plasma calcium viktoria urement (mass/volume)Ordered By: Teri Garcia on 09-10-2024 Calcium [Mass/Vol] 8.7 mg/dL 7.6-11.0 [facility] Serum or plasma urea nitroge n measurement (mass/volume)Ordered By: Teri Garcia on 09-10-2024 Urea nitrogen [Mass/Vol] 37 mg/dL High 4-19 [facility] Sodium levelOrdered By: Ollie Garcia on 09-10-2024 Sodium [Moles/Vol] 137 mmol/L 133-145 [facility] Squamous epithelial cells de tection in urine sediment by light microscopyOrdered By: Teri Garcia on 09-10-2024 Epithelial cells.squamous LM Ql (Urine sed) 0-5 SEEN /hpf 5-10 [facility] Troponin T.cardiac [Mass/vol ume] in Serum or Plasma by High sensitivity methodOrdered By: Teri Garcia on 09-10-2024 Troponin T.cardiac High sensitivity method [Mass/Vol] 15 ng/L High <14 [facility] Troponin T.cardiac High sensitivity method [Mass/Vol] 17 ng/L High <14 [facility] Troponin T.cardiac High sensitivity method [Mass/Vol] 18 ng/L High <14 [facility] Urinalysis, Completeon 09-10 BACTERIA RARE Normal None Seen [facility] Comment on above: Order Comment: RANDY CTOR TO SPECIFY Performed By: #### L 400.0001 ####[facility] [address] [place], [place], [id number] EPI,SQUAMOUS 0-5 SEEN Normal 5-10 [facility] Comment on above: Order Comment: RANDY CTOR TO SPECIFY Performed By: #### L 400.0001 ####[facility] [address] [place], [address] WBC 10-25 SEEN Normal 0-5 [facility] Comment on above: Order Comment: RANDY CTOR TO SPECIFY Performed By: #### L 400.0001 ####[facility] [address] [place], [address] Mucus Ql (Urine sed) 0 SEEN Normal [facility] Comment on above: Order Comment: RANDY CTOR TO SPECIFY Performed By: #### L 400.0001 ####[facility] [address] [place], [address] RBC 0 SEEN Normal 0-5 [facility] Comment on above: Order Comment: RANDY CTOR TO SPECIFY Performed By: #### L 400.0001 ####[facility] [address] [place], [address] Urine clarityOrdered By: Lashaun Garcia on 09-10-2024 Clarity (U) Clear Clear [facility] Urine color determinationOrd ered By: Teri Garcia on 09-10-2024 Color (U) Straw Yellow [facility] Urine cultureOrdered By: Lashaun Garcia on 09-10-2024 Bacteria identified Cx Nom (U) Klebsiella pneumoniae sp pneum Abnormal [facility] Urine glucose detectionOrder ed By: Teri Garcia on 09-10-2024 Glucose Ql (U) Normal mg/dl Normal [facility] Urine leukocyte esterase det ection by dipstickOrdered By: Teri Garcia on 09-10-2024 Leukocyte esterase Test strip Ql (U) 500 /ul High Negative [facility] Urine pHOrdered By: Teri romero on 09-10-2024 pH (U) 5.0 [pH] 5.0 - 8.0 [facility] Urine sediment bacteria coun t by microscopy (number/high power field)Ordered By: Teri Garcia on 09-10-2024 Bacteria LM.HPF (Urine sed) [#/Area] RARE /hpf None Seen [facility] Urine specific gravity measu rementOrdered By: Teri Garcia on 09-10-2024 Specific gravity (U) [Rel density] 1.010 1.002-1.030 [facility] Urine urobilinogen measureme ntOrdered By: Teri Garcia on 09-10-2024 Urobilinogen Ql (U) Normal mg/dl Normal [facility] White blood cell (WBC) count Ordered By: Teri Garcia on 09-10-2024 WBC (Bld) [#/Vol] 11.5 10*3/uL High 4.4-11.0 [facility] White blood cell countOrdere d By: Teri Garcia on 09-10-2024 White blood cell count 10-25 SEEN /hpf 0-5 [facility] Absolute lymphocyte countOrd ered By: Anooppierce Crewso on 09-08-2024 Lymphocytes Auto (Unsp spec) [#/Vol] 2.21 10*3/uL 0.83-4.51 [facility] Absolute neutrophil countOrd ered By: Maria Parham [facility] on 09-08-2024 Neutrophils (Bld) [#/Vol] 10.3 10*3/uL High 2.0-7.7 [facility] Anion gap in Serum or Plasma Ordered By: Anooppierce Blackmon on 09-08-2024 Anion gap [Moles/Vol] 11 mmol/L 5-15 [facility] Automated lymphocyte count a s percentage of total leukocytesOrdered By: Anooppierce Blackmon on 09-08-2024 Lymphocytes/100 WBC Auto (Unsp spec) 16.2 % Low 19-41 [facility] BUN/creatinine ratioOrdered By: Anoop Blackmon on 09-08-2024 Urea nitrogen/Creatinine [Mass ratio] 35.2 mg/mg High 10-20 [facility] Basic Metabolic Profile (BMP )on 09-08-2024 BUN/CRE 35.2 RATIO High 10-20 [facility] Comment on above: Performed By: #### L 100.0100, L500.2500, L300.3900, L3300.4400 ####[facility] [address] [place], [address] Calcium [Mass/Vol] 8.9 mg/dL Normal 7.6-11.0 [facility] [place] Comment on above: Performed By: #### L 100.0100, L500.2500, L300.3900, L3300.4400 ####[facility] [address] [place], [address] Chloride [Moles/Vol] 105 mmol/L Normal 98-108 [facility] Comment on above: Performed By: #### L 100.0100, L500.2500, L300.3900, L3300.4400 ####[facility] [address] [place], [address] CO2 [Moles/Vol] 22.4 mmol/L Normal 21.0-32.0 [facility] Comment on above: Performed By: #### L 100.0100, L500.2500, L300.3900, L3300.4400 ####[facility] [address] [place], [address] Creatinine [Mass/Vol] 1.00 mg/dL Normal 0.70-1.20 [facility] Comment on above: Performed By: #### L 100.0100, L500.2500, L300.3900, L3300.4400 ####[facility] [address] [place], [address] ECRCL 39.57 ml/min Low 50-250 [facility] Comment on above: Performed By: #### L 100.0100, L500.2500, L300.3900, L3300.4400 ####[facility] [address] [place], [address] GAP 11 Normal 5-15 [facility] Comment on above: Performed By: #### L 100.0100, L500.2500, L300.3900, L3300.4400 ####[facility] [address] [place], [address] GFR/1.73 sq M.predicted among non-blacks MDRD (S/P/Bld) [Vol rate/Area] 54 mL/min/{1.73_m2} Low >60 [facility] Comment on above: Result Comment: mL/m in/1.73m2 CKD-EPI Creatinine Equation (2020) Performed By: #### L 100.0100, L500.2500, L300.3900, L3300.4400 ####[facility] [address] [place], [address] Glucose [Mass/Vol] 149 mg/dL High 70-99 [facility] [place] Comment on above: Performed By: #### L 100.0100, L500.2500, L300.3900, L3300.4400 ####[facility] [address] [place], [address] Potassium [Moles/Vol] 4.7 mmol/L Normal 3.3-5.1 [facility] Comment on above: Performed By: #### L 100.0100, L500.2500, L300.3900, L3300.4400 ####[facility] [address] [place], [address] Sodium [Moles/Vol] 138 mmol/L Normal 133-145 [facility] [place] Comment on above: Performed By: #### L 100.0100, L500.2500, L300.3900, L3300.4400 ####[facility] [address] [place], [address] Urea nitrogen [Mass/Vol] 35 mg/dL High 4-19 [facility] Comment on above: Performed By: #### L 100.0100, L500.2500, L300.3900, L3300.4400 ####[facility] [address] [place], [address] Basophil percentageOrdered B y: Anoop Blackmon on 09-08-2024 Basophils/100 WBC (Bld) 0.2 % 0-1 [facility] CBC W/Diff, Automatedon 08-29 Absolute Lymph 2.21 X10 3/uL Normal 0.83-4.51 [facility] Comment on above: Performed By: #### L 100.0100, L500.2500, L300.3900, L3300.4400 ####[facility] [address] [place], [address] Absolute Neut 10.3 X10 3/uL High 2.0-7.7 [facility] Comment on above: Performed By: #### L 100.0100, L500.2500, L300.3900, L3300.4400 ####[facility] [address] [place], [address] Basophils/100 WBC (Bld) 0.2 % Normal 0-1 [facility] Comment on above: Performed By: #### L 100.0100, L500.2500, L300.3900, L3300.4400 ####[facility] [address] [place], [address] Eosinophils/100 WBC (Bld) 0.7 % Normal 0-5 [facility] Comment on above: Performed By: #### L 100.0100, L500.2500, L300.3900, L3300.4400 ####[facility] [address] [place], [address] Erythrocyte distribution width (RBC) [Ratio] 13.2 % Normal 11.6-14.6 [facility] Comment on above: Performed By: #### L 100.0100, L500.2500, L300.3900, L3300.4400 ####[facility] [address] [place], [address] Hematocrit (Bld) [Volume fraction] 41.4 % Normal 37-47 [facility] Comment on above: Performed By: #### L 100.0100, L500.2500, L300.3900, L3300.4400 ####[facility] [address] [place], [address] Hemoglobin (Bld) [Mass/Vol] 13.8 g/dL Normal 12.0-15.0 [facility] Comment on above: Performed By: #### L 100.0100, L500.2500, L300.3900, L3300.4400 ####[facility] [address] [place], [address] IG% 0.400 Normal 0.0-0.9 [facility] Comment on above: Result Comment: IG% - Immature Granulocytes (promyelocytes, myelocytes and metamyelocytes) > 1% indicates that a LEFT SHIFT is Present. Performed By: #### L 100.0100, L500.2500, L300.3900, L3300.4400 ####[facility] [address] [place], [address] Lymphocytes/100 WBC (Bld) 16.2 % Low 19-41 [facility] Comment on above: Performed By: #### L 100.0100, L500.2500, L300.3900, L3300.4400 ####[facility] [address] [place], [address] MCH (RBC) [Entitic mass] 31.4 pg Normal 27.0-32.0 [facility] Comment on above: Performed By: #### L 100.0100, L500.2500, L300.3900, L3300.4400 ####[facility] [address] [place], [address] MCHC (RBC) [Mass/Vol] 33.3 g/dL Normal 32-36 [facility] Comment on above: Performed By: #### L 100.0100, L500.2500, L300.3900, L3300.4400 ####[facility] [address] [place], [address] MCV (RBC) [Entitic vol] 94.1 fL Normal 81-99 [facility] Comment on above: Performed By: #### L 100.0100, L500.2500, L300.3900, L3300.4400 ####[facility] [address] [place], [address] Monocytes/100 WBC (Bld) 6.6 % Normal 0-10 [facility] Comment on above: Performed By: #### L 100.0100, L500.2500, L300.3900, L3300.4400 ####[facility] [address] [place], [address] Neutrophils/100 WBC (Bld) 75.9 % High 47-70 [facility] Comment on above: Performed By: #### L 100.0100, L500.2500, L300.3900, L3300.4400 ####[facility] [address] [place], [address] Nucleated RBC (Bld) [#/Vol] 0 10*3/uL Normal 0-5 [facility] Comment on above: Performed By: #### L 100.0100, L500.2500, L300.3900, L3300.4400 ####[facility] [address] [place], [address] Platelet mean volume (Bld) [Entitic vol] 10.8 fL Normal 6.2-12.0 [facility] Comment on above: Performed By: #### L 100.0100, L500.2500, L300.3900, L3300.4400 ####[facility] [address] [place], [address] Platelets (Bld) [#/Vol] 326 10*3/uL Normal 150-450 [facility] Comment on above: Performed By: #### L 100.0100, L500.2500, L300.3900, L3300.4400 ####[facility] [address] [place], [address] RBC (Bld) [#/Vol] 4.40 10*6/uL Normal 4.2-5.4 [facility] Comment on above: Performed By: #### L 100.0100, L500.2500, L300.3900, L3300.4400 ####[facility] [address] [place], [address] RDW SD 45.2 fl High 35.1-43.9 [facility] Comment on above: Performed By: #### L 100.0100, L500.2500, L300.3900, L3300.4400 ####[facility] [address] [place], [address] WBC (Bld) [#/Vol] 13.6 10*3/uL High 4.4-11.0 [facility] Comment on above: Performed By: #### L 100.0100, L500.2500, L300.3900, L3300.4400 ####[facility] [address] [place], [address] Carbon dioxide, total [Moles /volume] in Central venous bloodOrdered By: Anoop Blackmon on 09-08-2024 CO2 [Moles/Vol] 22.4 mmol/L 21.0-32.0 [facility] Chloride assayOrdered By: Monserrat Blackmon on 09-08-2024 Chloride [Moles/Vol] 105 mmol/L 98-108 [facility] Emergency Department Summary on 09-08-2024 Emergency Department Summary [facility] Medical Records Department [address] [place] [address] Emergency Department Summary 09/08/24 MR#: [id number] Acct: [id number] Name: EZRA GONZALEZ Rep #: [id number] : 1935 89 From: Anoop Blackmon MD [...] His most recent office note was reviewed. Her mini mental status exam improved after she was [...] anesthesia [facility]. She does have problems with balance which is multifactorial according to Dr. Juarez office note. Patient has no infectious symptoms. 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 (02/14/07) Persistent atrial fibrillation Chronic kidney disease (CKD) Spinal stenosis Osteoarthritis Atherosclerotic heart disease of [place] coronary artery without angina pectoris Type 2 diabetes mellitus Essential (primary) hypertension Hyperlipidemia Obesity Pleural effusion on right (09/2019) Paroxysmal atrial fibrillation Home Medications ???Medication ???Instructions ???Recorded ???Last Taken ???Type multivitamin 1 cap PO DAILY 12/10/19 12/27/22 H istory omeprazole 20 mg capsule,delayed 20 mg PO DAILY reflux 11/14/22 History release atorvastatin 40 mg tablet 40 mg PO QHS 01/20/23 Unknown Hist ory ascorbic acid (vitamin C) 250 mg 250 mg PO DAILY 05/19/23 Unknown H istory tablet diphenhydramine HCl 25 mg tablet 25 mg PO QHS PRN allergy symptoms 05/19/23 Unknown History (Allergy (diphenhydramine)) warfarin 2.5 mg tablet 2.5 mg PO .QTUWEFR #90 tabs Unknown Rx warfarin 3 mg tablet 3 mg PO .QMOTHSASU #90 tabs Unknown Rx donepezil 10 mg tablet 10 mg PO QHS #30 tabs 05/10/24 Unk nown Rx lamotrigine 25 mg tablet 50 mg (2 x 25 mg) PO BID #120 tabs 05/10/24 Unknown Rx amlodipine 10 mg tablet 10 mg PO QDAY #90 tabs 07/01/24 Un known Rx acetaminophen 650 mg 650 mg PO Q8H 09/08/24 Unknown His tory tablet,extended release (Tylenol Arthritis Pain) irbesartan 300 mg tablet 300 mg PO DAILY 09/08/24 Unknown H istory metoprolol succinate 50 mg 50 mg PO DAILY 09/08/24 Unknown Hi story tablet,extended release 24 hr Allergy/AdvReac Type Severity [...] artery disease) Surgical History History of kyphoplasty ( 05/2020) History of left heart catheterization (12/27/19) History of left hip replacement History of repair of rotator cuff History of knee replacement History of coronary artery stent placement (02/14/07) History of radiofrequency ablation procedure for (more content not included)... Normal [facility] Eosinophil percentageOrdered By: Anoop Blackmon on 09-08-2024 Eosinophils/100 WBC (Bld) 0.7 % 0-5 [facility] Erythrocyte distribution wid th ratioOrdered By: Anoop Blackmon on 09-08-2024 Erythrocyte distribution width (RBC) [Ratio] 13.2 % 11.6-14.6 [facility] Erythrocyte distribution wid th standard deviationOrdered By: Anooppierce Blackmon on 09-08-2024 Erythrocyte distribution width (RBC) [Ratio] 45.2 fl High 35.1-43.9 [facility] Glomerular filtration rate ( GFR) estimation/1.73 sq m using serum, plasma, or whole bOrdered By: Anoop Blackmon on 09-08-2024 GFR/1.73 sq M.predicted among non-blacks MDRD (S/P/Bld) [Vol rate/Area] 54 mL/min/{1.73_m2} Low >60 [facility] Comment on above: mL/min/1.73m2 CKD-EP I Creatinine Equation (2020) Hematocrit Auto (Bld) [Volum e fraction]Ordered By: Anooppierce Blackmon on 09-08-2024 Hematocrit (Bld) [Volume fraction] 41.4 % 37-47 [facility] Hemoglobin measurementOrdere d By: Anooppierce Blackmon on 09-08-2024 Hemoglobin (Bld) [Mass/Vol] 13.8 g/dL 12.0-15.0 [facility] Immature granulocytes/100 WB C Auto (Bld)Ordered By: Anooppierce Blackmon 09-08-2024 Immature granulocytes/100 WBC (Bld) 0.400 % 0.0-0.9 [facility] Comment on above: IG% - Immature Granu locytes (promyelocytes, myelocytes and metamyelocytes) > 1% indicates that a LEFT SHIFT is Present. International normalized rat io (INR) calculationOrdered By: Anooppierce Blackmon on 09-08-2024 INR Coag (Bld) [Relative time] 2.9 {INR} [facility] MCV (mean corpuscular volume ) determinationOrdered By: Anooppierce Blackmon on 09-08-2024 MCV (RBC) [Entitic vol] 94.1 fL 81-99 [facility] Mean corpuscular hemoglobin (MCH) determinationOrdered By: Anooppierce Blackmon 09-08-2024 MCH (RBC) [Entitic mass] 31.4 pg 27.0-32.0 [facility] Mean corpuscular hemoglobin concentration (MCHC) determinationOrdered By: Anooppierce Blackmon on 09-08-2024 MCHC (RBC) [Mass/Vol] 33.3 g/dL 32-36 [facility] Mean platelet volume determi nationOrdered By: Anooppierce Blackmon on 09-08-2024 Platelet mean volume (Bld) [Entitic vol] 10.8 fL 6.2-12.0 [facility] Monocyte percentageOrdered B y: [facility] on 09-08-2024 Monocytes/100 WBC (Bld) 6.6 % 0-10 [facility] Neutrophil percentageOrdered By: [facility] on 09-08-2024 Neutrophils/100 WBC (Bld) 75.9 % High 47-70 [facility] Nucleated red blood cell per centageOrdered By: [facility] on 09-08-2024 Nucleated RBC/100 WBC (Bld) [Ratio] 0 % 0-5 [facility] Platelet [facility]Ordered By: [facility] 09-[facility] Platelets (Bld) [#/Vol] 326 10*3/uL 150-450 [facility] Potassium measurement (mass/ volume)Ordered By: [facility] on 09-08-2024 Potassium (Unsp spec) [Mass/Vol] 4.7 mmol/L 3.3-5.1 [facility] Prothrombin Time w/INRon INR Coag (PPP) [Relative time] 2.9 {INR} Normal [facility] Comment on above: Performed By: #### L 100.0100, L500.2500, L300.3900, L3300.4400 ####[facility] [address] [place], [place], [id number] PT Coag (PPP) [Time] 30.7 s High 11.7-14.9 [facility] Comment on above: Performed By: #### L 100.0100, L500.2500, L300.3900, L3300.4400 ####[facility] [address] [place], [place], [id number] Prothrombin timeOrdered By: Anoop Blackmon on 09-08-2024 PT Coag (PPP) [Time] 30.7 s High 11.7-14.9 [facility] RBC Auto (Bld) [#/Vol]Ordere d By: Anoop Blackmon on 09-08-2024 RBC (Bld) [#/Vol] 4.40 10*6/uL 4.2-5.4 [facility] Serum creatinine measurement (mass/volume)Ordered By: Anoop Blackmon on 09-08-2024 Creatinine [Mass/Vol] 1.00 mg/dL 0.70-1.20 [facility] Serum glucose measurement (m ass/volume)Ordered By: Anoop Blackmon on 09-08-2024 Glucose [Mass/Vol] 149 mg/dL High 70-99 [facility] [place] Serum or plasma calcium viktoria urement (mass/volume)Ordered By: Anoop Blackmon on 09-08-2024 Calcium [Mass/Vol] 8.9 mg/dL 7.6-11.0 [facility] Serum or plasma lamotrigine measurement (mass/volume)Ordered By: Anoop Blackmon on 09-08-2024 lamoTRIgine [Mass/Vol] 1.2 ug/mL Low 2.0-20.0 [facility] Comment on above: Detection Limit = 1. 0Performed at: [facility] [id number] Director: Brandon Wells MD, Phone: [phone] Serum or plasma urea nitroge n measurement (mass/volume)Ordered By: Anoop Blackmon on 09-08-2024 Urea nitrogen [Mass/Vol] 35 mg/dL High 4-19 [facility] Sodium levelOrdered By: Anoop Blackmon on 09-08-2024 Sodium [Moles/Vol] 138 mmol/L 133-145 [facility] [place] White blood cell (WBC) count Ordered By: Anoop Blackmon on 09-08-2024 WBC (Bld) [#/Vol] 13.6 10*3/uL High 4.4-11.0 [facility] International normalized rat io (INR) calculationOrdered By: Cesar Cole on 08-18-2024 INR Coag (Bld) [Relative time] 2.6 {INR} [facility] Prothrombin timeOrdered By: Cesar Cole on 08-18-2024 PT Coag (PPP) [Time] 28.1 s High 11.7-14.9 [facility] International normalized rat io (INR) calculationOrdered By: Cesar Douglas on 07-19-2024 INR Coag (Bld) [Relative time] 2.2 {INR} [facility] Prothrombin timeOrdered By: Cesar Douglas on 07-19-2024 PT Coag (PPP) [Time] 25.3 s High 11.7-14.9 [facility] Cardiology Visit Reporton Cardiology Visit Report [facility] [place] [address] OFFICE VISIT Date of Service: 07/01/24 MR#: [id number] Acct: [id number] Name: EZRA GONZALEZ Rep #: [id number] : 1935 Provider: Dr. Cesar Cole MD [...] atrial fibrillation. She is a reside at [facility]. 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 Normal [facility] International normalized rat io (INR) calculationOrdered By: Chucky Ochoa on 06-16-2024 INR Coag (Bld) [Relative time] 2.4 {INR} [facility] Prothrombin timeOrdered By: Chucky Ochoa on 06-16-2024 PT Coag (PPP) [Time] 26.6 s High 11.7-14.9 [facility] Absolute lymphocyte countOrd ered By: Chucky Ochoa on 06-09-2024 Lymphocytes Auto (Unsp spec) [#/Vol] 2.06 10*3/uL 0.83-4.51 [facility] Absolute neutrophil countOrd ered By: Chucky Ochoa on 06-09-2024 Neutrophils (Bld) [#/Vol] 5.6 10*3/uL 2.0-7.7 [facility] Anion gap in Serum or Plasma Ordered By: Chucky Ochoa on 06-09-2024 Anion gap [Moles/Vol] 13 mmol/L 5-15 [facility] Automated lymphocyte count a s percentage of total leukocytesOrdered By: Chucky Ochoa on 06-09-2024 Lymphocytes/100 WBC Auto (Unsp spec) 23.0 % 19-41 [facility] BUN/creatinine ratioOrdered By: Chucky Ochoa on 06-09-2024 Urea nitrogen/Creatinine [Mass ratio] 21.5 mg/mg High 10-20 [facility] Basophil percentageOrdered B y: Chucky Ochoa on 06-09-2024 Basophils/100 WBC (Bld) 0.6 % 0-1 [facility] Carbon dioxide, total [Moles /volume] in Central venous bloodOrdered By: Chucky Ochoa on 06-09-2024 CO2 [Moles/Vol] 22.4 mmol/L 21.0-32.0 [facility] Chloride assayOrdered By: Costa Ochoa on 06-09-2024 Chloride [Moles/Vol] 108 mmol/L 98-108 [facility] Eosinophil percentageOrdered By: Chucky Ochoa on 06-09-2024 Eosinophils/100 WBC (Bld) 4.8 % 0-5 [facility] Erythrocyte distribution wid th ratioOrdered By: Chucky Ochoa on 06-09-2024 Erythrocyte distribution width (RBC) [Ratio] 14.6 % 11.6-14.6 [facility] Erythrocyte distribution wid th standard deviationOrdered By: Chucky Ochoa on 06-09-2024 Erythrocyte distribution width (RBC) [Entitic vol] 49.2 fL High 35.1-43.9 [facility] Erythrocyte distribution width (RBC) [Ratio] 49.2 fl High 35.1-43.9 [facility] GFR/1.73 sq M.predicted sonia g non-blacks MDRD (S/P/Bld) [Vol rate/Area]Ordered By: Chucky Ochoa on 06-09-2024 Estimated GFR (MDRD) Non-Af Amer 59 Low >60 [facility] Comment on above: mL/min/1.73m2 CKD-EP I Creatinine Equation (2020) Glomerular filtration rate ( GFR) estimation/1.73 sq m using serum, plasma, or whole bOrdered By: Chucky Ochoa on 06-09-2024 GFR/1.73 sq M.predicted among non-blacks MDRD (S/P/Bld) [Vol rate/Area] 59 mL/min/{1.73_m2} Low >60 [facility] Comment on above: mL/min/1.73m2 CKD-EP I Creatinine Equation (2020) Hematocrit Auto (Bld) [Volum e fraction]Ordered By: Chucky Ochoa on 06-09-2024 Hematocrit (Bld) [Volume fraction] 38.3 % 37-47 [facility] Hemoglobin A1c percentageOrd ered By: Chucky Ochoa on 06-09-2024 HbA1c (Bld) [Mass fraction] 6.5 % >5.7 [facility] Hemoglobin measurementOrdere d By: Chucky Ochoa on 06-09-2024 Hemoglobin (Bld) [Mass/Vol] 12.4 g/dL 12.0-15.0 [facility] Immature granulocytes/100 WB C Auto (Bld)Ordered By: Chucky Ochoa on 06-09-2024 Immature granulocytes/100 WBC (Bld) 0.200 % 0.0-0.9 [facility] Comment on above: IG% - Immature Granu locytes (promyelocytes, myelocytes and metamyelocytes) > 1% indicates that a LEFT SHIFT is Present. Lymphocytes Auto (Unsp spec) [#/Vol]Ordered By: Chucky Ochoa on 06-09-2024 Lymphocytes (Bld) [#/Vol] 2.06 10*3/uL 0.83-4.5 1 [facility] Lymphocytes/100 WBC Auto (Un sp spec)Ordered By: Chucky Ochoa on 06-09-2024 Lymphocytes/100 WBC (Bld) 23.0 % 19-41 [facility] MCV (mean corpuscular volume ) determinationOrdered By: Chucky Ochoa on 06-09-2024 MCV (RBC) [Entitic vol] 91.8 fL 81-99 [facility] Mean corpuscular hemoglobin (MCH) determinationOrdered By: Chucky Ochoa on 06-09-2024 MCH (RBC) [Entitic mass] 29.7 pg 27.0-32.0 [facility] Mean corpuscular hemoglobin concentration (MCHC) determinationOrdered By: Chucky Ochoa on 06-09-2024 MCHC (RBC) [Mass/Vol] 32.4 g/dL 32-36 [facility] Mean platelet volume determi nationOrdered By: Chucky Ochoa on 06-09-2024 Platelet mean volume (Bld) [Entitic vol] 10.2 fL 6.2-12.0 [facility] Monocyte percentageOrdered B y: Chucky Ochoa on 06-09-2024 Monocytes/100 WBC (Bld) 8.6 % 0-10 [facility] Neutrophil percentageOrdered By: Chucky Ochoa on 06-09-2024 Neutrophils/100 WBC (Bld) 62.8 % 47-70 [facility] Nucleated red blood cell per centageOrdered By: Chucky Ochoa on 06-09-2024 Nucleated RBC/100 WBC (Bld) [Ratio] 0 % 0-5 [facility] Platelet countOrdered By: Costa Ochoa on 06-09-2024 Platelets (Bld) [#/Vol] 323 10*3/uL 150-450 [facility] Potassium (Unsp spec) [Mass/ Vol]Ordered By: Chucky Ochoa on 06-09-2024 Potassium [Moles/Vol] 4.7 mmol/L 3.3-5.1 [facility] Potassium measurement (mass/ volume)Ordered By: Chucky Ochoa on 06-09-2024 Potassium (Unsp spec) [Mass/Vol] 4.7 mmol/L 3.3-5.1 [facility] RBC Auto (Bld) [#/Vol]Ordere d By: Chucky Ochoa on 06-09-2024 RBC (Bld) [#/Vol] 4.17 10*6/uL Low 4.2-5.4 [facility] Serum creatinine measurement (mass/volume)Ordered By: Chucky Ochoa on 06-09-2024 Creatinine [Mass/Vol] 0.94 mg/dL 0.70-1.20 [facility] Serum glucose measurement (m ass/volume)Ordered By: Chucky Ochoa on 06-09-2024 Glucose [Mass/Vol] 137 mg/dL High 70-99 [facility] Serum or plasma calcium viktoria urement (mass/volume)Ordered By: Chucky Ochoa on 06-09-2024 Calcium [Mass/Vol] 8.9 mg/dL 7.6-11.0 [facility] Serum or plasma urea nitroge n measurement (mass/volume)Ordered By: Chucky Ochoa on 06-09-2024 Urea nitrogen [Mass/Vol] 20 mg/dL High 4-19 [facility] Sodium levelOrdered By: Dru Ochoa on 06-09-2024 Sodium [Moles/Vol] 143 mmol/L 133-145 [facility] White blood cell (WBC) count Ordered By: Chucky Ochoa on 06-09-2024 WBC (Bld) [#/Vol] 9.0 10*3/uL 4.4-11.0 [facility] INR Coag (BldC) [Relative ti me]Ordered By: Cesar Cole on 05-19-2024 INR Coag (Bld) [Relative time] 2.9 {INR} [facility] Comment on above: Critical Value > 4.0 International normalized rat io (INR) measurement by fingerstickOrdered By: Cesar Cole on 05-19-2024 INR Coag (BldC) [Relative time] 2.9 [facility] Comment on above: Critical Value > 4.0 PT Coag (Bld) [Time]Ordered By: Cesar Cole on 05-19-2024 Bedside Prothrombin Time 30.4 SEC High 11.7-14.9 [facility] Whole blood prothrombin time Ordered By: Cesar Cole on 05-19-2024 PT Coag (Bld) [Time] 30.4 s High 11.7-14.9 [facility] Serum or plasma lamotrigine measurement (mass/volume)Ordered By: Anant Juarez on 05-12-2024 lamoTRIgine [Mass/Vol] 1.8 ug/mL Low 2.0-20.0 [facility] Comment on above: Detection Limit = 1. 0Performed at: [facility] [address] [id number] Director: Brandon Wells MD, Phone: [phone] Venous blood ammonia measure mentOrdered By: Anant Juarez on 05-12-2024 Ammonia (P) [Moles/Vol] 17.0 umol/L [facility] lamoTRIgine [Mass/Vol]Ordere d By: Anantchavez Juarez on 05-12-2024 Lamotrigine (Lamictal) Level 1.8 ug/mL Low 2.0-20.0 [facility] Comment on above: Detection Limit = 1. 0Performed at: - [address] [id number] Director: Brandon Wells MD, Phone: [phone] Neurology Visit Reporton Neurology Visit Report [facility] [address], [address] [place] [address] OFFICE VISIT Date of Service: 05/10/24 MR#: [id number] Acct: [id number] Name: EZRA GONZALEZ Rep #: [id number] : 1935 Provider: Dr. Anant baez MD Age/Sex: 88/F Location: [facility]. 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 She has become lost while driving [...] nature. Th (more content not included)... Normal [facility] INR Coag (BldC) [Relative ti me]Ordered By: Cesar Cole on 05-05-2024 INR Coag (Bld) [Relative time] 2.5 {INR} [facility] Comment on above: Critical Value > 4.0 PT Coag (Bld) [Time]Ordered By: Cesar Cole on 05-05-2024 Bedside Prothrombin Time 26.9 SEC High 11.7-14.9 [facility] International normalized rat io (INR) calculationOrdered By: Chucky Ochoa on 04-28-2024 INR Coag (Bld) [Relative time] 3.4 {INR} [facility] Prothrombin timeOrdered By: Chucky Ochoa on 04-28-2024 PT Coag (PPP) [Time] 35.4 s High 11.7-14.9 [facility] International normalized rat io (INR) calculationOrdered By: Chucky Ochoa on 04-14-2024 INR Coag (Bld) [Relative time] 3.0 {INR} [facility] Prothrombin timeOrdered By: Chucky Ochoa on 04-14-2024 PT Coag (PPP) [Time] 31.4 s High 11.7-14.9 [facility] Blood urea nitrogen (BUN)/cr eatinine ratioOrdered By: Chucky Ochoa on 04-09-2024 Urea nitrogen/Creatinine [Mass ratio] 13.5 mg/mg 10-20 [facility] Carbon dioxide measurementOr dered By: Chucky Ochoa on 04-09-2024 CO2 [Moles/Vol] 28.0 mmol/L 21.0-32.0 [facility] Chloride measurementOrdered By: Chucky Ochoa on 04-09-2024 Chloride [Moles/Vol] 106 mmol/L 98-107 [facility] Estimated glomerular filtrat ion rate (GFR) AmericanOrdered By: Chucky Ochoa on 04-09-2024 Estimated GFR (MDRD) Amer 70 mL/min >60 [facility] Comment on above: GFR Calc Glomerular filtration rate ( GFR) estimationOrdered By: Chucky Ochoa on 04-09-2024 Estimated GFR (MDRD) Non-Af Amer 58 mL/min Low >60 [facility] Comment on above: Non- GFR Calc Glucose measurementOrdered B y: Chucky Ochoa on 04-09-2024 Glucose [Mass/Vol] 116 mg/dL High 74-106 [facility] Comment on above: Fasting Glucose resu lt from 100 to 125 mg/dL suggests IMPAIRED HOMEOSTASIS per A.D.A. criteria. Potassium measurementOrdered By: Chucky Ochoa on 04-09-2024 Potassium [Moles/Vol] 4.3 mmol/L 3.5-5.1 [facility] Serum anion gap measurementO rdered By: Chucky Ochoa on 04-09-2024 Anion gap [Moles/Vol] 3 mmol/L Low 5-15 [facility] Serum or plasma calcium viktoria urement (mass/volume)Ordered By: Chucky Ochoa on 04-09-2024 Calcium [Mass/Vol] 8.8 mg/dL 8.5-10.1 [facility] Serum or plasma creatinine m easurement (mass/volume)Ordered By: Chucky Ochoa on 04-09-2024 Creatinine [Mass/Vol] 0.96 mg/dL 0.55-1.02 [facility] Comment on above: The validity of the calculated GFR & GFRAA in patients over 70 years has not been determined. Clinical correlation is essential. Serum or plasma urea nitroge n measurement (mass/volume)Ordered By: Chucky Ochoa on 04-09-2024 Urea nitrogen [Mass/Vol] 13 mg/dL 7-18 [facility] Sodium levelOrdered By: Dru Ochoa on 04-09-2024 Sodium [Moles/Vol] 137 mmol/L 136-145 [facility] International normalized rat io (INR) calculationOrdered By: Chucky Ochoa on 04-06-2024 INR Coag (Bld) [Relative time] 2.6 {INR} [facility] Prothrombin timeOrdered By: Chucky Ochoa on 04-06-2024 PT Coag (PPP) [Time] 28.8 s High 11.7-14.9 [facility] INR Coag (BldC) [Relative ti me]Ordered By: Chucky Ochoa on 04-05-2024 INR Coag (Bld) [Relative time] 3.5 {INR} [facility] Comment on above: Critical Value > 4.0 PT Coag (Bld) [Time]Ordered By: Chucky Ochoa on 04-05-2024 Bedside Prothrombin Time 35.4 SEC High 11.7-14.9 [facility] International normalized rat io (INR) calculationOrdered By: Chucky Ochoa on 03-29-2024 INR Coag (Bld) [Relative time] 1.5 {INR} [facility] Prothrombin timeOrdered By: Chucky Ochoa on 03-29-2024 PT Coag (PPP) [Time] 17.9 s High 11.7-14.9 [facility] INR Coag (BldC) [Relative ti me]Ordered By: Chucky Ochoa on 03-26-2024 INR Coag (Bld) [Relative time] 3.4 {INR} [facility] Comment on above: Critical Value > 4.0 PT Coag (Bld) [Time]Ordered By: Chucky Ochoa on 03-26-2024 Bedside Prothrombin Time 34.4 SEC High 11.7-14.9 [facility] INR Coag (BldC) [Relative ti me]Ordered By: Chucky Ochoa on 03-25-2024 INR Coag (Bld) [Relative time] 3.8 {INR} [facility] Comment on above: Critical Value > 4.0 PT Coag (Bld) [Time]Ordered By: Chucky Ochoa on 03-25-2024 Bedside Prothrombin Time 37.8 SEC High 11.7-14.9 [facility] International normalized rat io (INR) calculationOrdered By: Chucky Ochoa on 03-19-2024 INR Coag (Bld) [Relative time] 3.0 {INR} [facility] Prothrombin timeOrdered By: Chucky Ochoa on 03-19-2024 PT Coag (PPP) [Time] 30.7 s High 11.7-14.9 [facility] INR Coag (BldC) [Relative ti me]Ordered By: Chucky Ochoa on 03-17-2024 INR Coag (Bld) [Relative time] 3.3 {INR} [facility] Comment on above: Critical Value > 4.0 PT Coag (Bld) [Time]Ordered By: Chucky Ochoa on 03-17-2024 Bedside Prothrombin Time 34.2 SEC High 11.7-14.9 [facility] INR Coag (BldC) [Relative ti me]Ordered By: Chucky Ochoa on 03-10-2024 INR Coag (Bld) [Relative time] 2.4 {INR} [facility] Comment on above: Critical Value > 4.0 PT Coag (Bld) [Time]Ordered By: Chucky Ochoa on 03-10-2024 Bedside Prothrombin Time 25.4 SEC High 11.7-14.9 [facility] International normalized rat io (INR) calculationOrdered By: Chucky Ochoa on 03-08-2024 INR Coag (Bld) [Relative time] 1.8 {INR} [facility] Prothrombin timeOrdered By: Chucky Ochoa on 03-08-2024 PT Coag (PPP) [Time] 21.1 s High 11.7-14.9 [facility] INR Coag (BldC) [Relative ti me]Ordered By: Chucky Ochoa on 03-04-2024 INR Coag (Bld) [Relative time] 1.8 {INR} [facility] Comment on above: Critical Value > 4.0 PT Coag (Bld) [Time]Ordered By: Chucky Ochoa on 03-04-2024 Bedside Prothrombin Time 20.2 SEC High 11.7-14.9 [facility] INR Coag (BldC) [Relative ti me]Ordered By: Chucky Ochoa on 02-05-2024 INR Coag (Bld) [Relative time] 2.2 {INR} [facility] Comment on above: Critical Value > 4.0 PT Coag (Bld) [Time]Ordered By: Chucky Ochoa on 02-05-2024 Bedside Prothrombin Time 22.8 SEC High 11.7-14.9 [facility] Lamotrigine (Lamictal) Level on 09-25-2023 LAMOTRIGINE 4.0 ug/mL Normal 2.0-20.0 [facility] Comment on above: Result Comment: Dete ction Limit = 1.0 Performed at: [address] [id number] Investigations Chief: Brandon Wells MD, Phone: [phone] Performed By: #### L 3300.4400, L500.4050, L503.5510, L100.0500 #### [facility] [address] [place], [place], [id number] Ammoniaon 09-22-2023 Ammonia (P) [Moles/Vol] 13.0 umol/L Normal 11-32 [facility] Comment on above: Performed By: #### L 3300.4400, L500.4050, L503.5510, L100.0500 #### [facility] [address] [place], [place], [id number] CBC-Complete Blood Cnt No Di ffon 09-22-2023 Erythrocyte distribution width (RBC) [Ratio] 14.4 % Normal 11.6-14.6 [facility] Comment on above: Performed By: #### L 3300.4400, L500.4050, L503.5510, L100.0500 #### [facility] [address] [place], [address] Hematocrit (Bld) [Volume fraction] 41.1 % Normal 37-47 [facility] Comment on above: Performed By: #### L 3300.4400, L500.4050, L503.5510, L100.0500 #### [facility] [address] [place], [address] Hemoglobin (Bld) [Mass/Vol] 12.9 g/dL Normal 12.0-15.0 [facility] Comment on above: Performed By: #### L 3300.4400, L500.4050, L503.5510, L100.0500 #### [facility] [address] [place], [address] MCH (RBC) [Entitic mass] 28.3 pg Normal 27.0-32.0 [facility] Comment on above: Performed By: #### L 3300.4400, L500.4050, L503.5510, L100.0500 #### [facility] [address] [place], [address] MCHC (RBC) [Mass/Vol] 31.4 g/dL Low 32-36 [facility] Comment on above: Performed By: #### L 3300.4400, L500.4050, L503.5510, L100.0500 #### [facility] [address] [place], [address] MCV (RBC) [Entitic vol] 90.1 fL Normal 81-99 [facility] Comment on above: Performed By: #### L 3300.4400, L500.4050, L503.5510, L100.0500 #### [facility] [address] [place], [address] Platelet mean volume (Bld) [Entitic vol] 10.9 fL Normal 6.2-12.0 [facility] Comment on above: Performed By: #### L 3300.4400, L500.4050, L503.5510, L100.0500 #### [facility] [address] [place], [address] Platelets (Bld) [#/Vol] 402 10*3/uL Normal 150-450 [facility] Comment on above: Performed By: #### L 3300.4400, L500.4050, L503.5510, L100.0500 #### [facility] [address] [place], [address] RBC (Bld) [#/Vol] 4.56 10*6/uL Normal 4.2-5.4 [facility] Comment on above: Performed By: #### L 3300.4400, L500.4050, L503.5510, L100.0500 #### [facility] [address] [place], [address] RDW SD 47.4 fl High 35.1-43.9 [facility] Comment on above: Performed By: #### L 3300.4400, L500.4050, L503.5510, L100.0500 #### [facility] [address] [place], [address] WBC (Bld) [#/Vol] 8.5 10*3/uL Normal 4.4-11.0 [facility] Comment on above: Performed By: #### L 3300.4400, L500.4050, L503.5510, L100.0500 #### [facility] [address] [place], [address] Comprehensive Metabolic [facility] 09-22-2023 Albumin [Mass/Vol] 3.5 g/dL Normal 3.2-5.0 [facility] Comment on above: Performed By: #### L 3300.4400, L500.4050, L503.5510, L100.0500 #### [facility] [address] [place], [address] Albumin/Globulin [Mass ratio] 1.0 {ratio} Normal 0.9-2.4 [facility] Comment on above: Performed By: #### L 3300.4400, L500.4050, L503.5510, L100.0500 #### [facility] [address] [place], [address] ALK P 105 U/L Normal 45-117 [facility] Comment on above: Performed By: #### L 3300.4400, L500.4050, L503.5510, L100.0500 #### [facility] [address] [place], [address] ALT [Catalytic activity/Vol] 14 U/L Normal 13-56 [facility] Comment on above: Performed By: #### L 3300.4400, L500.4050, L503.5510, L100.0500 #### [facility] [address] [place], [address] AST [Catalytic activity/Vol] 20 U/L Normal 15-37 [facility] Comment on above: Performed By: #### L 3300.4400, L500.4050, L503.5510, L100.0500 #### [facility] [address] [place], [address] Bilirubin [Mass/Vol] 0.30 mg/dL Normal 0.20-1.00 [facility] Comment on above: Result Comment: For patients on eltrombopag therapy, use of Dimension [place] TBIL is not recommended. Performed By: #### L 3300.4400, L500.4050, L503.5510, L100.0500 #### [facility] [address] [place], [address] BUN/CRE 14.9 RATIO Normal 10-20 [facility] Comment on above: Performed By: #### L 3300.4400, L500.4050, L503.5510, L100.0500 #### [facility] [address] [place], [address] CA,Total 9.2 mg/dL Normal 8.5-10.1 [facility] Comment on above: Performed By: #### L 3300.4400, L500.4050, L503.5510, L100.0500 #### [facility] [address] [place], [address] Chloride [Moles/Vol] 106 mmol/L Normal 98-107 [facility] Comment on above: Performed By: #### L 3300.4400, L500.4050, L503.5510, L100.0500 #### [facility] [address] [place], [address] CO2 [Moles/Vol] 29.0 mmol/L Normal 21.0-32.0 [facility] Comment on above: Performed By: #### L 3300.4400, L500.4050, L503.5510, L100.0500 #### [facility] [address] [place], [address] Creatinine [Mass/Vol] 1.21 mg/dL High 0.55-1.02 [facility] Comment on above: Result Comment: The validity of the calculated GFR GFRAA in patients over 70 years has not been determined. Clinical correlation is essential. Performed By: #### L 3300.4400, L500.4050, L503.5510, L100.0500 #### [facility] [address] [place], [address] EST GFR - AA 54 mL/min Low >60 [facility] Comment on above: Result Comment: Afri can Cameroonian GFR Calc Performed By: #### L 3300.4400, L500.4050, L503.5510, L100.0500 #### [facility] [address] [place], [address] GAP 4 Low 5-15 [facility] Comment on above: Performed By: #### L 3300.4400, L500.4050, L503.5510, L100.0500 #### [facility] [address] [place], [address] GFR/1.73 sq M.predicted among non-blacks MDRD (S/P/Bld) [Vol rate/Area] 45 mL/min/{1.73_m2} Low >60 [facility] Comment on above: Result Comment: Non- GFR Calc Performed By: #### L 3300.4400, L500.4050, L503.5510, L100.0500 #### [facility] [address] [place], [address] Globulin (S) [Mass/Vol] 3.6 g/dL Normal 2.2-4.2 [facility] Comment on above: Performed By: #### L 3300.4400, L500.4050, L503.5510, L100.0500 #### [facility] [address] [place], [address] Glucose [Mass/Vol] 123 mg/dL High 74-106 [facility] Comment on above: Result Comment: Fast ing Glucose result from 100 to 125 mg/dL suggests IMPAIRED HOMEOSTASIS per A.D.A. criteria. Performed By: #### L 3300.4400, L500.4050, L503.5510, L100.0500 #### [facility] [address] [place], [address] Potassium [Moles/Vol] 5.5 mmol/L High 3.5-5.1 [facility] Comment on above: Performed By: #### L 3300.4400, L500.4050, L503.5510, L100.0500 #### [facility] [address] [place], [address] Sodium [Moles/Vol] 139 mmol/L Normal 136-145 [facility] Comment on above: Performed By: #### L 3300.4400, L500.4050, L503.5510, L100.0500 #### [facility] [address] [place], [address] T PROT 7.1 g/dL Normal 6.4-8.2 [facility] Comment on above: Performed By: #### L 3300.4400, L500.4050, L503.5510, L100.0500 #### [facility] [address] [place], [address] Urea nitrogen [Mass/Vol] 18 mg/dL Normal 7-18 [facility] Comment on above: Performed By: #### L 3300.4400, L500.4050, L503.5510, L100.0500 #### [facility] [address] [place], [place], [address] Neurology Visit Reporton Neurology Visit Report [facility] [address], [address] [place], [place] [address] OFFICE VISIT Date of Service: 09/22/23 MR#: [id number] Acct: [id number] Name: EZRA GONZALEZ Rep #: [id number] : 1935 Provider: Dr. 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 She has become lost while driving [...] be positi (more content not included)... Normal [facility] Capillary blood internationa l normalized ratio (INR)Ordered By: Alexandra Hagen on 06-30-2023 INR Coag (BldC) [Relative time] 2.4 [facility] Comment on above: Critical Value > 4.0 Whole blood prothrombin time Ordered By: Alexandra Hagen on 06-30-2023 PT Coag (Bld) [Time] 24.6 s 11.7-14.9 [facility] [place]23 [place] Patient Choice Patient Name: EZRA GONZALEZ Date of : 1935 [facility] 06-20-2023 [facility] Next Site of Care Admission Date: 06/16/2023 01:38 PM Patient Name: EZRA GONZALEZ Location: [address] [id number] Date of : 1935 ------- Placement Information ------- Referral Type:Home Health Care Services - New Referral ID:[id number] Provider Name:[facility] Address 1[address] [facility] Address 2: City:[place] Selection Factors:Patient/Famil y Choice State:[place] Normal [facility] System [facility] TCC updated SW, pt i s requesting COT [...] pt order lunch. Notified TONIO, RN and day camp unit leader. . Normal [facility] [place] I SPOKE WITH DONOVAN, NEWS INTERN AT [facility]. THEY CAN TAKE PT BACK TODAY. THEY CAN PROVIDE TRANSPORTATION BACK TO FACILITY AROUND 3 PM. AWARE PT WILL NEED PT AT FACILITY, THEY USE [employer], DID LET HC LIAISON NOW. WENT TO [...] CHAT WITH CONNIE PEREZ REGARDING THIS. Normal [facility] Laboratory - Chemistry and C hemistry - challengeon 06-20-2023 Glucose [Mass/Vol] 125 mg/dL High 70 - 100 mg/dL [facility] Laboratory - Coagulationon 0 06-20-2023 PT Coag (Bld) [Time] 11.3 s 9.0 - 12.0 s [facility] No Panel Informationon 06-19 Interpretation and review of laboratory results Abnormal [facility] Performed by: [facility], [address] [place] [address], [place] [address] CLIA ID: [id number] [facility] Radiology Study observation (narrative) Janhandy isabel PROTHROMBIN TIMEon INR Coag (PPP) [Relative time] 1.1 {INR} Normal 0.9-1.1 [facility] Comment on above: Result Comment: Reji [...] Myocardial Infarction Performed By: #### L [id number] ####Chief Business Development Officer: ALEXANDRA BUSTAMANTE ([phone])[facility] ([facility])[address] [place] [address] PT Coag (PPP) [Time] 11.3 s Normal 9.0-12.[address] [facility] Comment on above: Performed By: #### L [id number] ####Chief Business Development Officer: ALEXANDRA BUSTAMANTE ([phone])[facility] ([facility])[address] [place] [address] PT Coag (Bld) [Time]on 06-19 INR Coag (PPP) [Relative time] 1.1 {INR} 0.9 - 1.1 [facility] Comment on above: Recommended Anticoag ulant [...] Infarction Interpretation and review of laboratory results [facility] Progress Noteon 06-20-2023 Progress Note Dc via CRISTINA cot to Josep MCARTHUR with all belongings [facility] Progress Note Called report to Maryanne at [facility] Progress Note [facility] Anticoagulatio n Management Service (RIA) Inpatient Warfarin Consult HPI: Ezra Gonzalez is a 87 y.o. female admitted on 06/16/2023 for Closed displaced fracture of medial condyle of right humerus, initial encounter [S42.898U] History reviewed. No pertinent past medical history. [...] patient can be classified as high risk ([id number] = 8). 2. Monitor for s/s of bleeding and drug interactions. Will adjust dose accordingly 3. RIA will manage while inpatient Dc Lombardi, PharmD Candidate Jp BolanosD, BCPS RIA is available daily [phone] via [employer]. If no response on [employer] then please page [phone]. Normal [facility] BASIC METABOLIC PANELon 03-2 Anion gap [Moles/Vol] 11 mmol/L Normal 3-13 [facility] Comment on above: Performed By: #### L [id number] ####Chief Business Development Officer: ALEXANDRA BUSTAMANTE ([phone])[facility] ([facility])[address] [place] [address] Calcium [Mass/Vol] 8.3 mg/dL Low 8.4-10.4 [facility] Comment on above: Performed By: #### L [id number] ####Chief Business Development Officer: ALEXANDRA BUSTAMANTE ([phone])[facility] ([facility])[address] [place] [address] [place] Chloride [Moles/Vol] 102 mmol/L Normal 98-[address] [facility] Comment on above: Performed By: #### L [id number] ####Chief Business Development Officer: ALEXANDRA BUSTAMANTE ([phone])[facility] ([facility])[address] [place] [address] [place] CO2 [Moles/Vol] 21 mmol/L Low 22-30 [facility] Comment on above: Performed By: #### L [id number] ####Chief Business Development Officer: ALEXANDRA BUSTAMANTE ([phone])[facility])[address] [place] [address] Creatinine [Mass/Vol] 0.84 mg/dL Normal 0.52-1.04 [facility] Comment on above: Performed By: #### L [id number] ####Chief Business Development Officer: ALEXANDRA BUSTAMANTE ([phone])[facility])[address] [place] [address] GLOMERULAR FILTRATION RATE ML/MIN/1.73 SQ M.PREDICTED 67.4 mL/min/1.73m*2 Normal >60.0 [facility] Comment on above: Result Comment: Calc ulation based on the Chronic Kidney Disease Epidemiology Collaboration (CKD-EPI) equation refit without adjustment for race Performed By: #### L [id number] ####Chief Business Development Officer: ALEXANDRA BUSTAMANTE ([phone])[facility])[address] [place] [address] Glucose [Mass/Vol] 263 mg/dL High 70-100 [facility] Comment on above: Performed By: #### L [id number] ####Chief Business Development Officer: ALEXANDRA BUSTAMANTE ([phone])[facility])[address] [place] [address] Potassium [Moles/Vol] 4.7 mmol/L Normal 3.5-5.1 [facility] Comment on above: Performed By: #### L [id number] ####Chief Business Development Officer: ALEXANDRA BUSTAMANTE ([phone])[facility])[address] [place] [address] Sodium [Moles/Vol] 133 mmol/L Low 135-145 [facility] Comment on above: Performed By: #### L [id number] ####Chief Business Development Officer: ALEXANDRA BUSTAMANTE ([phone])[facility])[address] [place] [address] Urea nitrogen [Mass/Vol] 27 mg/dL High 7-17 [facility] Comment on above: Performed By: #### L [id number] ####Chief Business Development Officer: ALEXANDRA BUSTAMANTE ([phone])[facility] ([address] Basic metabolic 1998 panelon 06-19-2023 Anion gap [Moles/Vol] 11 mmol/L 3 - 13 mmol/L [facility] Calcium [Mass/Vol] 8.3 mg/dL Low 8.4 - 10. 4 mg/dL [facility] Chloride [Moles/Vol] 102 mmol/L 98 - 10 7 mmol/L [facility] CO2 [Moles/Vol] 21 mmol/L Low 22 - 30 mmol/L [facility] Creatinine [Mass/Vol] 0.84 mg/dL 0.52 - 1.04 mg/dL [facility] GFR/1.73 sq M.predicted MDRD (S/P/Bld) [Vol rate/Area] 67.4 mL/min/{1.73_m2} - PINF [facility] Comment on above: Calculation based on the Chronic Kidney Disease Epidemiology Collaboration (CKD-EPI) equation refit without adjustment for race Glucose [Mass/Vol] 263 mg/dL High 70 - 100 mg/dL [facility] Interpretation and review of laboratory results Abnormal [facility] Potassium [Moles/Vol] 4.7 mmol/L 3.5 - 5.1 mmol/L [facility] Sodium [Moles/Vol] 133 mmol/L Low 135 - 145 mmol/L [facility] Urea nitrogen [Mass/Vol] 27 mg/dL High 7 - 17 mg/d L [facility] CARECOORDon 06-19-2023 [place] J[place] DAY #1 S/P ORIF OF RIGHT ARM. WAITING FOR PT/OT EVALS FOR DC PLANNING. Normal [facility] CBC W Auto Differential pane l (Bld)Ordered By: Leona Thakur on 06-19-2023 Basophils (Bld) [#/Vol] 0.0 10*3/uL 0.0 - 0.2 10*3/uL [facility] Basophils/100 WBC (Bld) 0.2 % 0.0 - 2.0 % [facility] Eosinophils (Bld) [#/Vol] 0.0 10*3/uL 0. 0 - 0.5 10*3/uL [facility] Eosinophils/100 WBC (Bld) 0.0 % 0.0 - 6.0 % [facility] Erythrocyte distribution width (RBC) [Ratio] 13.6 % 11.5 - 15.0 % [facility] Hematocrit (Bld) [Volume fraction] 35.0 % 35.0 - 47.0 % [facility] Hemoglobin (Bld) [Mass/Vol] 11.4 g/dL Low 11.7 - 16.0 g/dL [facility] Immature granulocytes (Bld) [#/Vol] 0.1 10*3/uL High NINF - 0.1 10*3/uL [facility] Immature granulocytes/100 WBC (Bld) 0.6 % 0.0 - 2.0 % [facility] Interpretation and review of laboratory results Abnormal [facility] th Lymphocytes (Bld) [#/Vol] 0.8 10*3/uL Low 1. 0 - 4.3 10*3/uL [facility] Lymphocytes/100 WBC (Bld) 6.4 % Low 15 .0 - 45.0 % [facility] MCH (RBC) [Entitic mass] 28.6 pg 26. 0 - 34.0 pg [facility] MCHC (RBC) [Mass/Vol] 32.6 % 30.5 - 36.0 % [facility] MCV (RBC) [Entitic vol] 87.9 fL 77.0 - 99.0 fL [facility] Monocytes (Bld) [#/Vol] 0.6 10*3/uL 0.0 - 0.9 10*3/uL [facility] Monocytes/100 WBC (Bld) 4.6 % Low 5.0 - 13.0 % [facility] Neutrophils (Bld) [#/Vol] 11.2 10*3/uL High 1. 8 - 7.5 10*3/uL [facility] Neutrophils/100 WBC (Bld) 88.2 % High 38 .0 - 82.0 % [facility] Nucleated RBC/100 WBC (Bld) [Ratio] 0.0 % [facility] Platelet mean volume (Bld) [Entitic vol] 10.2 fL 9.0 - 12.7 fL [facility] Platelets (Bld) [#/Vol] 260 10*3/uL 140 - 440 10*3/uL [facility] RBC (Bld) [#/Vol] 3.98 10*6/uL 3.80 - 5.2 0 10*6/uL [facility] WBC (Bld) [#/Vol] 12.7 10*3/uL High 3.6 - 10.7 10*3/uL [facility] CBC WITH AUTO DIFFERENTIALon 06-19-2023 Basophils (Bld) [#/Vol] 0.0 10*3/uL Normal 0.0-0.2 [facility] Comment on above: Performed By: #### L [id number] ####Chief Business Development Officer: ALEXANDRA BUSTAMANTE ([phone])[facility] ([facility])[address] [place] [address] Basophils/100 WBC (Bld) 0.2 % Normal 0.0-2.0 [facility] Comment on above: Performed By: #### L [id number] ####Chief Business Development Officer: ALEXANDRA BUSTAMANTE ([phone])[facility] ([facility])[address] [place] [address] Eosinophils (Bld) [#/Vol] 0.0 10*3/uL Normal 0.0-0.5 [facility] Comment on above: Performed By: #### L [id number] ####Chief Business Development Officer: ALEXANDRA BUSTAMANTE ([phone])[facility])[address] [place] [address] Eosinophils/100 WBC (Bld) 0.0 % Normal 0.0-6.0 [facility] Comment on above: Performed By: #### L [id number] ####Chief Business Development Officer: ALEXANDRA BUSTAMANTE ([phone])[facility])[address] [place] [address] Erythrocyte distribution width (RBC) [Ratio] 13.6 % Normal 11.5-15.0 [facility] Comment on above: Performed By: #### L [id number] ####Chief Business Development Officer: ALEXANDRA BUSTAMANTE ([phone])[facility])[address] [place] [address] Hematocrit (Bld) [Volume fraction] 35.0 % Normal 35.0-47.0 [facility] Comment on above: Performed By: #### L [id number] ####Chief Business Development Officer: ALEXANDRA BUSTAMANTE ([phone])[facility])[address] [place] [address] Hemoglobin (Bld) [Mass/Vol] 11.4 g/dL Low 11.7-16.0 [facility] Comment on above: Performed By: #### L [id number] ####Chief Business Development Officer: ALEXANDRA BUSTAMANTE ([phone])[facility])[address] [place] [address] IMMATURE GRANS % 0.6 % Normal 0.0-2.0 [facility] Comment on above: Performed By: #### L [id number] ####Chief Business Development Officer: ALEXANDRA BUSTAMANTE ([phone])[facility])[address] [place] [address] IMMATURE GRANS ABSOLUTE 0.1 10*3/uL High <0.1 [facility] Comment on above: Performed By: #### L [id number] ####Chief Business Development Officer: ALEXANDRA BUSTAMANTE ([phone])[facility])[address] [place] [address] Lymphocytes (Bld) [#/Vol] 0.8 10*3/uL Low 1.0-4.3 [facility] Comment on above: Performed By: #### L [id number] ####Chief Business Development Officer: ALEXANDRA BUSTAMANTE ([phone])[facility])[address] [place] [address] Lymphocytes/100 WBC (Bld) 6.4 % Low 15.0-45.0 [facility] Comment on above: Performed By: #### L [id number] ####Chief Business Development Officer: ALEXANDRA BUSTAMANTE ([phone])[facility])[address] [place] [address] MCH (RBC) [Entitic mass] 28.6 pg Normal 26.0-34.0 [facility] Comment on above: Performed By: #### L [id number] ####Chief Business Development Officer: ALEXANDRA BUSTAMANTE ([phone])[facility] ([facility])[address] [place] [address] MCHC 32.6 % Normal 30.5-36.0 [facility] Comment on above: Performed By: #### L [id number] ####Chief Business Development Officer: ALEXANDRA BUSTAMANTE ([phone])[facility] ([facility])[address] [place] [address] MCV (RBC) [Entitic vol] 87.9 fL Normal 77.0-99.0 [facility] Comment on above: Performed By: #### L [id number] ####Chief Business Development Officer: ALEXANDRA BUSTAMANTE ([phone])[facility])[address] [place] [address] Monocytes (Bld) [#/Vol] 0.6 10*3/uL Normal 0.0-0.9 [facility] Comment on above: Performed By: #### L [id number] ####Chief Business Development Officer: ALEXANDRA BUSTAMANTE ([phone])[facility] ([facility])[address] [place] [address] Monocytes/100 WBC (Bld) 4.6 % Low 5.0-13.0 [facility] Comment on above: Performed By: #### L [id number] ####Chief Business Development Officer: ALEXANDRA BUSTAMANTE ([phone])[facility] ([facility])[address] [place] [address] NEUTROPHILS ABSOLUTE 11.2 10*3/uL High 1.8-7.5 [facility] Comment on above: Performed By: #### L [id number] ####Chief Business Development Officer: ALEXANDRA BUSTAMANTE ([phone])[facility])[address] [place] [address] Neutrophils/100 WBC (Bld) 88.2 % High 38.0-82.0 [facility] Comment on above: Performed By: #### L [id number] ####Chief Business Development Officer: ALEXANDRA BUSTAMANTE ([phone])[facility] ([facility])[address] [place] [address] NRBC 0.0 /100 WBCs Normal 0.0-2.0 [facility] Comment on above: Performed By: #### L [id number] ####Chief Business Development Officer: ALEXANDRA BUSTAMANTE ([phone])[facility] ([facility])[address] [place] [address] Platelet mean volume (Bld) [Entitic vol] 10.2 fL Normal 9.0-12.7 [facility] Comment on above: Performed By: #### L [id number] ####Chief Business Development Officer: ALEXANDRA BUSTAMANTE ([id number])[facility] ([facility])[address] [place] [address] Platelets (Bld) [#/Vol] 260 10*3/uL Normal 140-440 [facility] Comment on above: Performed By: #### L [id number] ####Chief Business Development Officer: ALEXANDRA BUSTAMANTE ([phone])[facility] ([facility])[address] [place] [address] RBC (Bld) [#/Vol] 3.98 10*6/uL Normal 3.80-5.20 [facility] Comment on above: Performed By: #### L [id number] ####Chief Business Development Officer: ALEXANDRA BUSTAMANTE ([phone])[facility] ([facility])[address] [place] [address] WBC (Bld) [#/Vol] 12.7 10*3/uL High 3.6-10.7 [facility] Comment on above: Performed By: #### L [id number] ####Chief Business Development Officer: ALEXANDRA BUSTAMANTE ([id number])[facility])[address] [place] [address] Laboratory - Chemistry and C hemistry - challengeon 06-19-2023 Glucose [Mass/Vol] 220 mg/dL High 70 - 100 mg/dL [facility] Glucose [Mass/Vol] 137 mg/dL High 70 - 100 mg/dL [facility] Glucose [Mass/Vol] 141 mg/dL High 70 - 100 mg/dL [facility] Glucose [Mass/Vol] 177 mg/dL High 70 - 100 mg/dL [facility] Laboratory - Coagulationon 0 06-19-2023 PT Coag (Bld) [Time] 11.3 s 9.0 - 12.0 s [facility] No Panel Informationon 06-18 Interpretation and review of laboratory results Abnormal [facility] th Performed by: [facility], [address] [place] [id number] CLIA ID: [id number] [facility] Interpretation and review of laboratory results Abnormal [facility] th Performed by: [facility], [address] [place] [address] CLIA ID: [id number] [facility] Interpretation and review of laboratory results Abnormal [facility] th Performed by: [facility], [address] [place] [address] CLIA ID: [id number] [facility] Interpretation and review of laboratory results Abnormal [facility] th Performed by: [facility], [address] [place] [address] CLIA ID: [id number] [facility] Radiology Study observation (narrative) [facility] Radiology Study observation (narrative) [facility] Radiology Study observation (narrative) [facility] Radiology Study observation (narrative) [facility] PROTHROMBIN TIMEon INR Coag (PPP) [Relative time] 1.1 {INR} Normal 0.9-1.1 [facility] Comment on above: Result Comment: Reji [...] Myocardial Infarction Performed By: #### L [id number] ####Chief Business Development Officer: ALEXANDRA BUSTAMANTE ([phone])[facility] ([facility])[address] [place] [address] PT Coag (PPP) [Time] 11.3 s Normal 9.0-12.0 [facility] Comment on above: Performed By: #### L [id number] ####Chief Business Development Officer: ALEXANDRA BUSTAMANTE ([phone])[facility] ([facility] PT Coag (Bld) [Time]on 06-18 INR Coag (PPP) [Relative time] 1.1 {INR} 0.9 - 1.1 [facility] Comment on above: Recommended Anticoag ulant [...] Interpretation and review of laboratory results Normal [facility] Progress Noteon 06-19-2023 Progress Note [facility] Anticoagulatio n Management Service (RIA) Inpatient Warfarin Consult HPI: Ezra Gonzalez is a 87 y.o. female admitted on 06/16/2023 for Closed displaced fracture of medial condyle of right humerus, initial encounter [S42.105J] History reviewed. No pertinent past medical history. [...] patient can be classified as high risk ([id number] = 8). 2. Monitor for s/s of bleeding and drug interactions. Will adjust dose accordingly 3. RIA will manage while inpatient Dc Lombardi, JpD Candidate Jp BolanosD, [facility] RIA is available daily [phone] via [employer]. If no response on [employer] then please page [phone]. Normal [facility] BASIC METABOLIC PANELon 03- Anion gap [Moles/Vol] 10 mmol/L Normal 3-13 [facility] Comment on above: Performed By: #### L [id number] ####Chief Business Development Officer: ALEXANDRA BUTSAMANTE ([phone])[facility] ([facility])[address] [place] [address] Calcium [Mass/Vol] 8.8 mg/dL Normal 8.4-10.4 [facility] Comment on above: Performed By: #### L [id number] ####Chief Business Development Officer: ALEXANDRA BUSTAMANTE ([phone])[facility] ([facility])[address] [place] [address] Chloride [Moles/Vol] 98 mmol/L Normal 98-[address] [facility] Comment on above: Performed By: #### L [id number] ####Chief Business Development Officer: ALEXANDRA BUSTAMANTE ([phone])[facility] ([facility])[address] [place] [address] CO2 [Moles/Vol] 25 mmol/L Normal 22-30 [facility] Comment on above: Performed By: #### L [id number] ####Chief Business Development Officer: ALEXANDRA BUSTAMANTE ([phone])[facility] ([facility])[address] [place] [address] Creatinine [Mass/Vol] 0.83 mg/dL Normal 0.52-1.04 [facility] Comment on above: Performed By: #### L [id number] ####Chief Business Development Officer: ALEXANDRA BUSTAMANTE ([phone])[facility] ([facility])[address] [place] [address] GLOMERULAR FILTRATION RATE ML/MIN/1.73 SQ M.PREDICTED 68.3 mL/min/1.73m*2 Normal >60.0 [facility] Comment on above: Result Comment: Calc ulation based on the Chronic Kidney Disease Epidemiology Collaboration (CKD-EPI) equation refit without adjustment for race Performed By: #### L [id number] ####Chief Business Development Officer: ALEXANDRA BUSTAMANTE ([id number])[facility] ([facility])[address] [place] [address] Glucose [Mass/Vol] 163 mg/dL Normal [facility] Comment on above: Performed By: #### L [id number] ####Chief Business Development Officer: ALEXANDRA BUSTAMANTE ([phone])[facility] ([facility])[address] [place] [address] Order Comment: If no t done within the last 3 mos Performed By: #### L [id number] ####Chief Business Development Officer: ALEXANDRA BUSTAMANTE ([id number])[facility] ([facility])[address] [place] [address] Potassium [Moles/Vol] 4.6 mmol/L Normal 3.5-5.1 [facility] Comment on above: Performed By: #### L [id number] ####Chief Business Development Officer: ALEXANDRA BUSTAMANTE ([phone])[facility] ([facility])[address] [place] [address] Sodium [Moles/Vol] 133 mmol/L Low 135-145 [facility] Comment on above: Performed By: #### L [id number] ####Chief Business Development Officer: ALEXANDRA BUSTAMANTE ([phone])[facility])[address] [place] [address] Urea nitrogen [Mass/Vol] 24 mg/dL High 7-17 [facility] Comment on above: Performed By: #### L [id number] ####Chief Business Development Officer: ALEXANDRA BUSTAMANTE ([phone])[facility] ([facility])[address] [place] [address] Basic metabolic 1998 panelon 06-18-2023 Anion gap [Moles/Vol] 10 mmol/L 3 - 13 mmol/L [facility] Calcium [Mass/Vol] 8.8 mg/dL 8.4 - 10. 4 mg/dL [facility] Chloride [Moles/Vol] 98 mmol/L 98 - 10 7 mmol/L [facility] CO2 [Moles/Vol] 25 mmol/L 22 - 30 mmol/L [facility] Creatinine [Mass/Vol] 0.83 mg/dL 0.52 - 1.04 mg/dL [facility] GFR/1.73 sq M.predicted MDRD (S/P/Bld) [Vol rate/Area] 68.3 mL/min/{1.73_m2} - PINF [facility] Comment on above: Calculation based on the Chronic Kidney Disease Epidemiology Collaboration (CKD-EPI) equation refit without adjustment for race Glucose [Mass/Vol] 163 mg/dL High 70 - 100 mg/dL [facility] Interpretation and review of laboratory results Abnormal [facility] Potassium [Moles/Vol] 4.6 mmol/L 3.5 - 5.1 mmol/L [facility] Sodium [Moles/Vol] 133 mmol/L Low 135 - 145 mmol/L [facility] Urea nitrogen [Mass/Vol] 24 mg/dL High 7 - 17 mg/d L [facility] CARECOORDon 06-18-2023 [facility] Initial Assessment Date: 06/18/2023 Patient Name: Ezra Gonzalez : 1935 Patient Information Source of Information: Patient Cognition/Language: WFL - Within Functional Limits Permission given to speak with patient community health representative/chaitanya chávez as indicated: No Confirmation of Payer with patient/family: Yes Payer Name: [facility] [place]: No Confirmation of Primary Care Physician: Confirmed [...] Laundry/Cleaning: Assistance Provider Laundry/Cleaning Assistance Provider Name: [place] STAFF Finances/Bill Paying: Independent Communication: Independent Types [...] CONTINUE TO FOLLOW. Shikha Gray RN Normal [facility] CBC W Auto Differential pane l (Bld)Ordered By: Nir Meza on 06-18-2023 Basophils (Bld) [#/Vol] 0.1 10*3/uL 0.0 - 0.2 10*3/uL [facility] Basophils/100 WBC (Bld) 0.4 % 0.0 - 2.0 % [facility] Eosinophils (Bld) [#/Vol] 0.2 10*3/uL 0. 0 - 0.5 10*3/uL [facility] Eosinophils/100 WBC (Bld) 1.3 % 0.0 - 6.0 % [facility] [facility] Erythrocyte distribution width (RBC) [Ratio] 13.8 % 11.5 - 15.0 % [facility] Hematocrit (Bld) [Volume fraction] 44.1 % 35.0 - 47.0 % [facility] Hemoglobin (Bld) [Mass/Vol] 13.9 g/dL 11.7 - 16.0 g/dL [facility] Immature granulocytes (Bld) [#/Vol] 0.1 10*3/uL High NINF - 0.1 10*3/uL [facility] Immature granulocytes/100 WBC (Bld) 0.4 % 0.0 - 2.0 % [facility] Interpretation and review of laboratory results Abnormal [facility] th Lymphocytes (Bld) [#/Vol] 2.0 10*3/uL 1. 0 - 4.3 10*3/uL [facility] Lymphocytes/100 WBC (Bld) 13.1 % Low 15 .0 - 45.0 % [facility] MCH (RBC) [Entitic mass] 28.0 pg 26. 0 - 34.0 pg [facility] MCHC (RBC) [Mass/Vol] 31.5 % 30.5 - 36.0 % [facility] MCV (RBC) [Entitic vol] 88.9 fL 77.0 - 99.0 fL [facility] Monocytes (Bld) [#/Vol] 1.4 10*3/uL High 0.0 - 0.9 10*3/uL [facility] Monocytes/100 WBC (Bld) 9.0 % 5.0 - 13.0 % [facility] Neutrophils (Bld) [#/Vol] 11.8 10*3/uL High 1. 8 - 7.5 10*3/uL [facility] Neutrophils/100 WBC (Bld) 75.8 % 38 .0 - 82.0 % [facility] Nucleated RBC/100 WBC (Bld) [Ratio] 0.0 % [facility] Platelet mean volume (Bld) [Entitic vol] 10.1 fL 9.0 - 12.7 fL [facility] Platelets (Bld) [#/Vol] 375 10*3/uL 140 - 440 10*3/uL [facility] RBC (Bld) [#/Vol] 4.96 10*6/uL 3.80 - 5.2 0 10*6/uL [facility] WBC (Bld) [#/Vol] 15.5 10*3/uL High 3.6 - 10.7 10*3/uL [facility] CBC WITH AUTO DIFFERENTIALon 06-18-2023 Basophils (Bld) [#/Vol] 0.1 10*3/uL Normal 0.0-0.2 [facility] Comment on above: Performed By: #### L [id number] ####Chief Business Development Officer: ALEXANDRA BUSTAMANTE ([phone])[address] Basophils/100 WBC (Bld) 0.4 % Normal 0.0-2.0 [facility] Comment on above: Performed By: #### L [id number] ####Chief Business Development Officer: ALEXANDRA BUSTAMANTE ([phone])[facility])[address] [place] [address] Eosinophils (Bld) [#/Vol] 0.2 10*3/uL Normal 0.0-0.5 [facility] Comment on above: Performed By: #### L [id number] ####Chief Business Development Officer: ALEXANDRA BUSTAMANTE ([phone])[facility])[address] [place] [address] Eosinophils/100 WBC (Bld) 1.3 % Normal 0.0-6.0 [facility] Comment on above: Performed By: #### L [id number] ####Chief Business Development Officer: ALEXANDRA BUSTAMANTE ([phone])[address] Erythrocyte distribution width (RBC) [Ratio] 13.8 % Normal 11.5-15.0 [facility] Comment on above: Performed By: #### L [id number] ####Chief Business Development Officer: ALEXANDRA BUSTAMANTE ([phone])[facility])[address] [place] [address] Hematocrit (Bld) [Volume fraction] 44.1 % Normal 35.0-47.0 [facility] Comment on above: Performed By: #### L [id number] ####Chief Business Development Officer: ALEXANDRA BUSTAMANTE ([phone])[address] Hemoglobin (Bld) [Mass/Vol] 13.9 g/dL Normal 11.7-16.0 [facility] Comment on above: Performed By: #### L [id number] ####Chief Business Development Officer: ALEXANDRA BUSTAMANTE ([phone])[facility])[address] [place] [address] IMMATURE GRANS % 0.4 % Normal 0.0-2.0 [facility] Comment on above: Performed By: #### L [id number] ####Chief Business Development Officer: ALEXANDRA BUSTAMANTE ([phone])[facility])[address] [place] [address] IMMATURE GRANS ABSOLUTE 0.1 10*3/uL High <0.1 [facility] Comment on above: Performed By: #### L [id number] ####Chief Business Development Officer: ALEXANDRA BUSTAMANTE ([id number])[facility])[address] [place] [address] Lymphocytes (Bld) [#/Vol] 2.0 10*3/uL Normal 1.0-4.3 [facility] Comment on above: Performed By: #### L [id number] ####Chief Business Development Officer: ALEXANDRA BUSTAMANTE ([phone])[facility])[address] [place] [address] Lymphocytes/100 WBC (Bld) 13.1 % Low 15.0-45.0 [facility] Comment on above: Performed By: #### L [id number] ####Chief Business Development Officer: ALEXANDRA BUSTAMANTE ([phone])[facility])[address] [place] [address] MCH (RBC) [Entitic mass] 28.0 pg Normal 26.0-34.0 [facility] Comment on above: Performed By: #### L [id number] ####Chief Business Development Officer: ALEXANDRA BUSTAMANTE ([phone])[facility])[address] [place] [address] MCHC 31.5 % Normal 30.5-36.0 [facility] Comment on above: Performed By: #### L [id number] ####Chief Business Development Officer: ALEXANDRA BUSTAMANTE ([phone])[facility])[address] [place] [address] MCV (RBC) [Entitic vol] 88.9 fL Normal 77.0-99.0 [facility] Comment on above: Performed By: #### L [id number] ####Chief Business Development Officer: ALEXANDRA BUSTAMANTE ([id number])[facility])[address] [place] [address] Monocytes (Bld) [#/Vol] 1.4 10*3/uL High 0.0-0.9 [facility] Comment on above: Performed By: #### L [id number] ####Chief Business Development Officer: ALEXANDRA BSUTAMANTE ([phone])[facility] ([facility])[address] [place] [address] Monocytes/100 WBC (Bld) 9.0 % Normal 5.0-13.0 [facility] Comment on above: Performed By: #### L [id number] ####Chief Business Development Officer: ALEXANDRA BUSTAMANTE ([phone])[facility] ([facility])[address] [place] [address] NEUTROPHILS ABSOLUTE 11.8 10*3/uL High 1.8-7.5 [facility] Comment on above: Performed By: #### L [id number] ####Chief Business Development Officer: ALEXANDRA BUSTAMANTE ([phone])[facility] ([facility])[address] [place] [address] Neutrophils/100 WBC (Bld) 75.8 % Normal 38.0-82.0 [facility] Comment on above: Performed By: #### L [id number] ####Chief Business Development Officer: ALEXANDRA BUSTAMANTE ([phone])[facility] ([facility])[address] [place] [address] NRBC 0.0 /100 WBCs Normal 0.0-2.0 [facility] Comment on above: Performed By: #### L [id number] ####Chief Business Development Officer: ALEXANDRA BUSTAMANTE ([phone])[facility] ([facility])[address] [place] [address] Platelet mean volume (Bld) [Entitic vol] 10.1 fL Normal 9.0-12.7 [facility] Comment on above: Performed By: #### L [id number] ####Chief Business Development Officer: ALEXANDRA BUSTAMANTE ([id number])[facility] ([facility])[address] [place] [address] [place] Platelets (Bld) [#/Vol] 375 10*3/uL Normal 140-440 [facility] Comment on above: Performed By: #### L [id number] ####Chief Business Development Officer: ALEXANDRA BUSTAMANTE ([phone])[facility])[address] [place] [address] RBC (Bld) [#/Vol] 4.96 10*6/uL Normal 3.80-5.20 [facility] Comment on above: Performed By: #### L [id number] ####Chief Business Development Officer: ALEXANDRA BUSTAMANTE ([phone])[facility])[address] [place] [address] WBC (Bld) [#/Vol] 15.5 10*3/uL High 3.6-10.7 [facility] Comment on above: Performed By: #### L [id number] ####Chief Business Development Officer: ALEXANDRA BUSTAMANTE ([phone])[facility])[address] [place] [address] HEMOGLOBIN A1Con 06-18-2023 HbA1c (Bld) [Mass fraction] 7.3 % High <5.7 [facility] Comment on above: Order Comment: If no t done within the last 3 mos Result Comment: Norm al less than 5.7% Prediabetes 5.7% to 6.4% Diabetes 6.5% or higher --HgbA1C levels may not be accurate in patients who have renal disease, received recent blood transfusions, are anemic, or who have dyshemoglobinemia. Performed By: #### L [id number] ####Chief Business Development Officer: ALEXANDRA BUSTAMANTE ([phone])[facility])[address] [place] [address] IDNon 06-18-2023 IDN The patient is Moderately Stable - Low risk of patient condition declining or worsening The patient's goals for the shift include rest and pain control The clinical goals for the shift include rest and pain control Normal [facility] Laboratory - Chemistry and C hemistry - challengeon 06-18-2023 Glucose [Mass/Vol] 189 mg/dL High 70 - 100 mg/dL [facility] Procalcitonin [Mass/Vol] 0.06 ng/mL 0.0 0 - 0.09 ng/mL [facility] Glucose [Mass/Vol] 121 mg/dL High 70 - 100 mg/dL [facility] Average glucose Estimated from glycated hemoglobin (Bld) [Mass/Vol] 163 mg/dL [facility] Laboratory - Hematology and Cell countson 06-18-2023 HbA1c (Bld) [Mass fraction] 7.3 % High NINF - 5.7 % [facility] Comment on above: Normal less than 5.7 % Prediabetes 5.7% to 6.4% Diabetes 6.5% or higher --HgbA1C levels may not be accurate in patients who have renal disease, received recent blood transfusions, are anemic, or who have dyshemoglobinemia. No Panel Informationon 06-17 Interpretation and review of laboratory results Abnormal [facility] Performed by: [facility], [address] [place] [id number] CLIA ID: [id number] [facility] There is no interpretation needed for this exam. IMAGING Interpretation and review of laboratory results Abnormal [facility] Performed by: [facility], [address] [place] [address] CLIA ID: [id number] [facility] Interpretation and review of laboratory results Abnormal [facility] Radiology Study observation (narrative) [facility] Radiology Study observation (narrative) [facility] Nursing Noteon 06-18-2023 Nursing Note Pt states no need to contact family. RN on floor states she will call pt's son,. Normal [facility] Nursing Note Patients wallet and watch locked up with security. OR notified patient states she has latex allergy Patients purse and glasses taken to pacu Normal [facility] Op Noteon 06-18-2023 Op Note [facility] [address] [facility] [address] Dept: [phone] Loc: [phone] Operative Report Patient Name: Ezra Gonzalez Date of : 1935 Date of Surgery: 06/18/23 Pre-operative diagnosis: Right intra-articular distal humerus fracture Post-operative diagnosis: Same Procedure(s): Open reduction internal fixation of right intra-articular distal humerus fracture Surgeon: Benitez Givens M.D. [employer] Consultant(s): Lexa Aparicio M.D. Anesthesia: General and Regional [...] as well as medical complications such as PA, stroke, PE, DVT, and even . Pt [...] Aparicio MD at 06/18/23, 7:20 PM [facility] Op Note Date: 06/16/2023 - 06/18/2023 Location: [facility] OR Name: Ezra Gonzalez, : 1935, Diagnosis Pre-op Diagnosis * Closed displaced fracture of medial condyle of right humerus, initial encounter [S42.645S] Post-op Diagnosis * Closed displaced fracture of medial condyle of right humerus, initial encounter [S42.461A] Procedures OPEN REDUCTION INTERNAL FIXATION RIGHT DISTAL HUMERUS [address] - [place] [employer] HUMERAL SHFT FX W/PLATE/SCREWS W/WOCERCLAGE Surgeons * Benitez Givens - Primary Procedure Summary Anesthesia: * No anesthesia type entered * ASA: III Estimated Blood Loss: Minimal Drains: * None in log * Staff: Tassel Maker: Vivian Herrera RN Scrub Person: Linda Alvarez [...] in 2 weeks -Ortho to follow. Normal [facility] PROCALCITONIN TESTon 024 PROCALCITONIN 0.06 ng/mL Normal 0.00-0.09 [facility] Comment on above: Result Comment: [facility] COMMENTS: PCT <0.50 = Low risk of severe sepsis and/or septic shock. PCT >2.00 = High risk of severe sepsis and/or septic shock. Performed By: #### L [id number] ####Chief Business Development Officer: ALEXANDRA BUSTAMANTE ([phone])[facility] ([address] Procalcitonin [Mass/Vol]on 0 06-18-2023 Interpretation and review of laboratory results Normal [facility] PCT <0.50 = Low risk of severe sepsis and/or septic shock. PCT >2.00 = High risk of severe sepsis and/or septic shock. [facility] Progress Noteon 06-18-2023 Progress Note Nutrition rescreen completed. Chart reviewed. Patient to be monitored and followed by the diet electrician technician. NICA Watts Normal [facility] Progress Note OCCUPATIONAL THERAPY [facility] Name/MRN: Ezra Gonzalez ([id number]) Date: 06/18/2023 OT eval and treat order received. Patient chart reviewed. Per Ortho note, Plan for ORIF od R distal humerus. Will hold evaluation till after surgery. Louisa Cespedes, OT Normal [facility] Progress Note PHYSICAL THERAPY [facility] Name/MRN: Ezra Gonzalez ([id number]) Date: 06/18/2023 PT orders received and chart reviewed. Per ortho note, Plan for ORIF R distal humerus. Will hold and attempt following surgery. Maryanne Neumann, PT Normal [facility] ECG 12-LEADon 06-17-2023 ECG 12-LEAD IMPRESSION: Atrial fibrillation Probable left ventricular hypertrophy No previous ECG for comparison Electronically Signed On 06-17-2023 06:39:12 EDT by Thong Francois [facility] ED Nursing Noteon 06-17-2023 ED Nursing Note Patient resting in bed at this time, equal unlabored respirations noted and no acute distress, call león within reach Di Reyna RN 06/17/23 1153 Normal [facility] ED Nursing Note Pt O2 desaturating t o mid 80s after receiving dilaudid IV. Pt placed on 2L NC and immediately back up to 95%. notified Alia Foster RN 06/17/23 1031 [facility] ED Nursing Note Pt upset with intermittent beeping of IV pump. RN made several attempts to reposition arm and flush line. IV pump will run and then become occluded. After fourth attempt at repositioning, pt called RN a nitwit. RN explained that it is preferable to not place a new line unless necessary. RN will request US IV line. Juanjo Pringle, JAYME 06/16/23 1547 Normal [facility] Laboratory - Chemistry and C hemistry - challengeon 06-17-2023 Glucose [Mass/Vol] 137 mg/dL High 70 - 100 mg/dL [facility] Laboratory - Coagulationon 0 06-17-2023 PT Coag (Bld) [Time] 14.5 s High 9.0 - 12.0 s [facility] No Panel Informationon 06-16 Interpretation and review of laboratory results Abnormal [facility] Performed by: [facility], [address] [place] [address]: [id number] [facility] Atrial fibrillation Probable left ventricular hypertrophy No previous ECG for comparison Electronically Signed On 06-17-2023 06:39:12 EDT by Thong Arvizu D O - 06/17/2023 IMPRESSION: Atrial fibrillation Probable left ventricular hypertrophy No previous ECG for comparison Electronically Signed On 06-17-2023 06:39:12 EDT by Thong Francois [facility] Radiology Study observation (narrative) Trina Oconnell chalo No Panel InformationOrdered By: Thong Francois on 06-17-2023 P [place] 0 degrees [facility] Work Phone: [place] Interval 0 ms [facility] [employer] Work Phone: QRS [place] -24 degrees [employer] Phone: QRSD Interval 103 ms [facility] Work Phone: QT Interval 382 ms [facility] Work Phone: QTC Interval 442 ms [facility] [employer] Work Phone: T Wave [place] 31 degrees [employer] Work Phone: [facility] [employer] Work Phone: Nursing Noteon 06-17-2023 Nursing Note Patient home medication list updated, provider made aware. Normal [facility] PROTHROMBIN TIMEon INR Coag (PPP) [Relative time] 1.4 {INR} High 0.9-1.1 [facility] Comment on above: Result Comment: Reji [...] Infarction Performed By: #### L [id number] #### Chief Business Development Officer: ALEXANDRA BUSTAMANTE ([phone]) [facility] ([facility]) [address] [place] [address] PT Coag (PPP) [Time] 14.5 s High 9.0-12.[address] [facility] Comment on above: Performed By: #### L [id number] #### Chief Business Development Officer: ALEXANDRA BUSTAMANTE ([phone]) [facility] ([facility]) [address] [place] [address] PT Coag (Bld) [Time]on 06-16 INR Coag (PPP) [Relative time] 1.4 {INR} High 0.9 - 1.1 [facility] Comment on above: Recommended Anticoag ulant [...] Interpretation and review of laboratory results Abnormal [facility] Progress Noteon 06-17-2023 Progress Note Due to OR availability, case cancelled for today. Moved to tomorrow, 06/17. Ok for diet today. NPO @MA. Keep splint C/D/I. Evette Viera MD Orthopaedic Surgery, PGY-5 [phone] Normal [facility] Vital signsOrdered By: Neeta Francois on 06-17-2023 Heart rate 80 /min bpm [facility] Work Phone: XR Chest Single viewon 06-16 No acute cardiopulmonary process identified. Other chronic findings as discussed. 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 [facility] Houston Chau MD - 06/17/2023 Patient Name: EZRA GONZALEZ : 1935 Exam Date/Time: 06/17/2023 00:38 Procedure: XR CHEST [...] Electronically Signed Date/Time: 06/17/2023 12:44 AM EDT [facility] Radiology Study observation (narrative) [facility] Chest Single viewOrdered By: Houston Chau on 06-17-2023 [facility] [employer] Work Phone: Absolute lymphocyte countOrd ered By: Lali Pimentel on 03-18-2024 Lymphocytes Auto (Unsp spec) [#/Vol] 3.86 10*3/uL 0.83-4.51 [facility] Automated lymphocyte count a s percentage of total leukocytesOrdered By: Lali Pimentel on 06-16-2023 Lymphocytes/100 WBC Auto (Unsp spec) 23.0 % 19-41 [facility] BASIC METABOLIC PANELon 05-29 Anion gap [Moles/Vol] 7 mmol/L Normal 3-13 [facility] Comment on above: Performed By: #### L [id number] ####Chief Business Development Officer: ALEXANDRA BUSTAMANTE ([phone])[facility] ([facility])[address] [place] [address] Calcium [Mass/Vol] 8.6 mg/dL Normal 8.4-10.4 [facility] Comment on above: Performed By: #### L AB15 ####Chief Business Development Officer: ALEXANDRA BUSTAMANTE ([phone])[facility] ([facility])[address] [place] [address] Chloride [Moles/Vol] 99 mmol/L Normal 98-[address] [facility] Comment on above: Performed By: #### L AB15 ####Chief Business Development Officer: ALEXANDRA BUSTAMANTE ([phone])[facility] ([facility])[address] [place] [address] CO2 [Moles/Vol] 29 mmol/L Normal 22-30 [facility] Comment on above: Performed By: #### L AB15 ####Chief Business Development Officer: ALEXANDRA BUSTAMANTE ([phone])[facility] ([facility])[address] [place] [address] Creatinine [Mass/Vol] 0.79 mg/dL Normal 0.52-1.04 [facility] Comment on above: Performed By: #### L AB15 ####Chief Business Development Officer: ALEXANDRA BUSTAMANTE ([phone])[facility])[address] [place] [address] GLOMERULAR FILTRATION RATE ML/MIN/1.73 SQ M.PREDICTED 72.5 mL/min/1.73m*2 Normal >60.0 [facility] Comment on above: Result Comment: Calc ulation based on the Chronic Kidney Disease Epidemiology Collaboration (CKD-EPI) equation refit without adjustment for race Performed By: #### L AB15 ####Chief Business Development Officer: ALEXANDRA BUSTAMANTE ([phone])[facility] ([facility])[address] [place] [address] Glucose [Mass/Vol] 186 mg/dL High 70-100 [facility] Comment on above: Performed By: #### L AB15 ####Chief Business Development Officer: ALEXANDRA BUSTAMANTE ([phone])[facility] ([facility])[address] [place] [address] Potassium [Moles/Vol] 4.5 mmol/L Normal 3.5-5.1 [facility] Comment on above: Performed By: #### L AB15 ####Chief Business Development Officer: ALEXANDRA BUSTAMANTE ([id number])[facility] ([facility])[address] [place] [address] Sodium [Moles/Vol] 136 mmol/L Normal 135-145 [facility] Comment on above: Performed By: #### L AB15 ####Chief Business Development Officer: ALEXANDRA BUSTAMANTE ([phone])[facility] ([facility])[address] [place] [address] Urea nitrogen [Mass/Vol] 26 mg/dL High 7-17 [facility] Comment on above: Performed By: #### L AB15 ####Chief Business Development Officer: ALEXANDRA BUSTAMANTE ([phone])[facility] ([facility])[address] [place] [address] BLOOD TYPE AND SCREEN GELon 06-16-2023 ABO GROUPING A Normal [facility] Comment on above: Performed By: #### L [id number] ####Chief Business Development Officer: ALEXANDRA BUSTAMANTE ([phone])[facility] ([facility])[address] [place] [address] RH TYPE IN BLOOD Positive Normal [facility] Comment on above: Performed By: #### L [id number] ####Chief Business Development Officer: ALEXANDRA BUSTAMANTE ([phone])[facility] ([facility])[address] [place] [address] Basic metabolic 1998 panelon 06-16-2023 Anion gap [Moles/Vol] 7 mmol/L 3 - 13 mmol/L [facility] Calcium [Mass/Vol] 8.6 mg/dL 8.4 - 10. 4 mg/dL [facility] Chloride [Moles/Vol] 99 mmol/L 98 - 10 7 mmol/L [facility] CO2 [Moles/Vol] 29 mmol/L 22 - 30 mmol/L [facility] Creatinine [Mass/Vol] 0.79 mg/dL 0.52 - 1.04 mg/dL [facility] GFR/1.73 sq M.predicted MDRD (S/P/Bld) [Vol rate/Area] 72.5 mL/min/{1.73_m2} - PINF [facility] Comment on above: Calculation based on the Chronic Kidney Disease Epidemiology Collaboration (CKD-EPI) equation refit without adjustment for race Glucose [Mass/Vol] 186 mg/dL High 70 - 100 mg/dL [facility] Interpretation and review of laboratory results Abnormal [facility] Potassium [Moles/Vol] 4.5 mmol/L 3.5 - 5.1 mmol/L [facility] Sodium [Moles/Vol] 136 mmol/L 135 - 145 mmol/L [facility] Urea nitrogen [Mass/Vol] 26 mg/dL High 7 - 17 mg/d L [facility] Basophil percentageOrdered B y: Lali Pimentel on 06-16-2023 Basophils/100 WBC (Bld) 0.4 % 0-1 [facility] Chloride [Moles/Vol] 104 mmol/L 98-107 [facility] Eosinophils/100 WBC (Bld) 1.3 % 0-5 [facility] Glucose [Mass/Vol] 191 mg/dL 74-106 [facility] Comment on above: Fasting Glucose resu lt greater than or equal to 126 mg/dL suggests DIABETES MELLITUS per A.D.A. criteria. Hemoglobin (Bld) [Mass/Vol] 13.6 g/dL 12.0-15.0 [facility] Monocytes/100 WBC (Bld) 7.0 % 0-10 [facility] Neutrophils (Bld) [#/Vol] 11.4 10*3/uL 2.0-7.7 [facility] Neutrophils/100 WBC (Bld) 67.8 % 47-70 [facility] Potassium [Moles/Vol] 3.4 mmol/L 3.5-5.1 [place] [facility] Sodium [Moles/Vol] 140 mmol/L 136-145 [place] [facility] [place] WBC (Bld) [#/Vol] 16.8 10*3/uL 4.4-11.0 [place] [facility] [place] Blood type and Crossmatch pa ro (Bld)on 06-16-2023 Blood group antibody screen GEL Ql Negative [facility] CBC W Auto Differential pane l (Bld)on 06-16-2023 Basophils (Bld) [#/Vol] 0.0 10*3/uL 0.0 - 0.2 10*3/uL [facility] Basophils/100 WBC (Bld) 0.2 % 0.0 - 2.0 % [facility] Eosinophils (Bld) [#/Vol] 0.0 10*3/uL 0. 0 - 0.5 10*3/uL [facility] Eosinophils/100 WBC (Bld) 0.0 % 0.0 - 6.0 % [facility] Erythrocyte distribution width (RBC) [Ratio] 13.6 % 11.5 - 15.0 % [facility] Hematocrit (Bld) [Volume fraction] 38.9 % 35.0 - 47.0 % [facility] Hemoglobin (Bld) [Mass/Vol] 12.8 g/dL 11.7 - 16.0 g/dL [facility] Immature granulocytes (Bld) [#/Vol] 0.1 10*3/uL High NINF - 0.1 10*3/uL [facility] Immature granulocytes/100 WBC (Bld) 0.6 % 0.0 - 2.0 % [facility] Interpretation and review of laboratory results Abnormal [facility] th Lymphocytes (Bld) [#/Vol] 1.1 10*3/uL 1. 0 - 4.3 10*3/uL [facility] Lymphocytes/100 WBC (Bld) 6.5 % Low 15 .0 - 45.0 % [facility] MCH (RBC) [Entitic mass] 29.1 pg 26. 0 - 34.0 pg [facility] MCHC (RBC) [Mass/Vol] 32.9 % 30.5 - 36.0 % [facility] MCV (RBC) [Entitic vol] 88.4 fL 77.0 - 99.0 fL [facility] Monocytes (Bld) [#/Vol] 0.7 10*3/uL 0.0 - 0.9 10*3/uL [facility] Monocytes/100 WBC (Bld) 4.4 % Low 5.0 - 13.0 % [facility] Neutrophils (Bld) [#/Vol] 14.3 10*3/uL High 1. 8 - 7.5 10*3/uL [facility] Neutrophils/100 WBC (Bld) 88.3 % High 38 .0 - 82.0 % [facility] Nucleated RBC/100 WBC (Bld) [Ratio] 0.0 % [facility] [employer] Platelet mean volume (Bld) [Entitic vol] 9.9 fL 9.0 - 12.7 fL [facility] Platelets (Bld) [#/Vol] 357 10*3/uL 140 - 440 10*3/uL [facility] RBC (Bld) [#/Vol] 4.40 10*6/uL 3.80 - 5.2 0 10*6/uL [facility] WBC (Bld) [#/Vol] 16.2 10*3/uL High 3.6 - 10.7 10*3/uL [facility] CBC WITH AUTO DIFFERENTIALon 06-16-2023 Basophils (Bld) [#/Vol] 0.0 10*3/uL Normal 0.0-0.2 [facility] Comment on above: Performed By: #### L [id number] ####Chief Business Development Officer: ALEXANDRA BUSTAMANTE ([phone])[address] Basophils/100 WBC (Bld) 0.2 % Normal 0.0-2.0 [facility] Comment on above: Performed By: #### L [id number] ####Chief Business Development Officer: ALEXANDRA BUSTAMANTE ([phone])[facility])[address] [place] [address] Eosinophils (Bld) [#/Vol] 0.0 10*3/uL Normal 0.0-0.5 [facility] Comment on above: Performed By: #### L [id number] ####Chief Business Development Officer: ALEXANDRA BUSTAMANTE ([phone])[facility])[address] [place] [address] Eosinophils/100 WBC (Bld) 0.0 % Normal 0.0-6.0 [facility] Comment on above: Performed By: #### L [id number] ####Chief Business Development Officer: ALEXANDRA BUSTAMANTE ([phone])[facility])[address] [place] [address] Erythrocyte distribution width (RBC) [Ratio] 13.6 % Normal 11.5-15.0 [facility] Comment on above: Performed By: #### L [id number] ####Chief Business Development Officer: ALEXANDRA BUSTAMANTE ([phone])[address] Hematocrit (Bld) [Volume fraction] 38.9 % Normal 35.0-47.0 [facility] Comment on above: Performed By: #### L [id number] ####Chief Business Development Officer: ALEXANDRA BUSTAMANTE ([phone])[address] Hemoglobin (Bld) [Mass/Vol] 12.8 g/dL Normal 11.7-16.0 [facility] Comment on above: Performed By: #### L [id number] ####Chief Business Development Officer: ALEXANDRA BUSTAMANTE ([phone])[facility])[address] [place] [address] IMMATURE GRANS % 0.6 % Normal 0.0-2.0 [facility] Comment on above: Performed By: #### L [id number] ####Chief Business Development Officer: ALEXANDRA BUSTAMANTE ([phone])[address] IMMATURE GRANS ABSOLUTE 0.1 10*3/uL High <0.1 [facility] Comment on above: Performed By: #### L [id number] ####Chief Business Development Officer: ALEXANDRA BUSTAMANTE ([phone])[facility])[address] [place] [address] Lymphocytes (Bld) [#/Vol] 1.1 10*3/uL Normal 1.0-4.3 [facility] Comment on above: Performed By: #### L [id number] ####Chief Business Development Officer: ALEXANDRA BUSTAMANTE ([phone])[facility])[address] [place] [address] Lymphocytes/100 WBC (Bld) 6.5 % Low 15.0-45.0 [facility] Comment on above: Performed By: #### L [id number] ####Chief Business Development Officer: ALEXANDRA BUSTAMATNE ([phone])[facility])[address] [place] [address] MCH (RBC) [Entitic mass] 29.1 pg Normal 26.0-34.0 [facility] Comment on above: Performed By: #### L [id number] ####Chief Business Development Officer: ALEXANDRA BUSTAMANTE ([phone])[facility])[address] [place] [address] MCHC 32.9 % Normal 30.5-36.0 [facility] Comment on above: Performed By: #### L [id number] ####Chief Business Development Officer: ALEXANDRA BUSTAMANTE ([phone])[facility] ([facility])[address] [place] [address] MCV (RBC) [Entitic vol] 88.4 fL Normal 77.0-99.0 [facility] Comment on above: Performed By: #### L [id number] ####Chief Business Development Officer: ALEXANDRA BUSTAMANTE ([phone])[facility] ([facility])[address] [place] [address] Monocytes (Bld) [#/Vol] 0.7 10*3/uL Normal 0.0-0.9 [facility] Comment on above: Performed By: #### L [id number] ####Chief Business Development Officer: ALEXANDRA BUSTAMANTE ([phone])[facility])[address] [place] [address] Monocytes/100 WBC (Bld) 4.4 % Low 5.0-13.0 [facility] Comment on above: Performed By: #### L [id number] ####Chief Business Development Officer: ALEXANDRA BUSTAMANTE ([id number])[facility] ([facility])[address] [place] [address] NEUTROPHILS ABSOLUTE 14.3 10*3/uL High 1.8-7.5 [facility] Comment on above: Performed By: #### L [id number] ####Chief Business Development Officer: ALEXANDRA BUSTAMANTE ([phone])[facility] ([facility])[address] [place] [address] Neutrophils/100 WBC (Bld) 88.3 % High 38.0-82.0 [facility] Comment on above: Performed By: #### L [id number] ####Chief Business Development Officer: ALEXANDRA BUSTAMANTE ([phone])[facility] ([facility])[address] [place] [address] NRBC 0.0 /100 WBCs Normal 0.0-2.0 [facility] Comment on above: Performed By: #### L [id number] ####Chief Business Development Officer: ALEXANDRA BUSTAMANTE ([phone])[facility] ([facility])[address] [place] [address] Platelet mean volume (Bld) [Entitic vol] 9.9 fL Normal 9.0-12.7 [facility] Comment on above: Performed By: #### L [id number] ####Chief Business Development Officer: ALEXANDRA BUSTAMANTE ([phone])[facility] ([facility])[address] [place] [address] [place] Platelets (Bld) [#/Vol] 357 10*3/uL Normal 140-440 [facility] Comment on above: Performed By: #### L [id number] ####Chief Business Development Officer: ALEXANDRA BUSTAMANTE ([phone])[facility] ([facility])[address] [place] [address] RBC (Bld) [#/Vol] 4.40 10*6/uL Normal 3.80-5.20 [facility] Comment on above: Performed By: #### L [id number] ####Chief Business Development Officer: ALEXANDRA BUTSAMANTE ([phone])[facility] ([facility])[address] [place] [address] WBC (Bld) [#/Vol] 16.2 10*3/uL High 3.6-10.7 [facility] Comment on above: Performed By: #### L [id number] ####Chief Business Development Officer: ALEXANDRA BUSTAMANTE ([phone])[facility] ([facility])[address] [place] [address] CT ELBOW RIGHT WO IV CONTRAS Ton [...] Injury (Pt arrives [facility] from [facility] with complaints of right elbow fracture. Patient was sent here for ortho consult. No pain on arrival. Arrives with right arm splinted.)Closed displaced fracture of medial condyle of right humerus, initial encounter Normal [facility] CT Elbow - right WO contrast on 06-16-2023 Impression: Extensively comminuted supracondylar humerus fracture. The fracture has multiple foci of articular extension to the lateral and central aspect of the condyle. Report Dictated on Electronically Signed By: Pastor Francisco MD Electronically Signed Date/Time: 06/16/2023 6:13 PM EDT [facility] Patient Name: EZRA GONZALEZ : 1935 Exam [...] process fracture. Joint effusion. Decreased osseous mineralization. [facility] Pastor Francisco MD - 06/16/2023 Patient Name: [...] Electronically Signed Date/Time: 06/16/2023 6:13 PM EDT [facility] Radiology Study observation (narrative) [facility] chalo Consulton 06-16-2023 Consult Ortho Consult Patient: Ezra Gonzalez Date of : 1935 Acct: [id number] PCP: No primary care provider on file. Date of Admission: 06/16/2023 Date of Service: Pt seen/examined on 06/16/2023 Chief Complaint: right distal humerus fracture History Of Present Illness: This is a 87 y.o. right hand dominant female who presents with a right distal humerus fracture after a fall at home. Patient originally presented to [facility] where she was splinted and transferred to [facility] ED for ortho eval. Patient denies numbness, tingling, or weakness. Denies pain elsewhere and denies head trauma or LOC. 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 Patient has prior ortho surgery history of bilateral TKAs and right shoulder surgery, left carpal tunnel release, all at [facility]. Denies alcohol, tobacco, drug use. Patient [...] RH, LAB (more content not included)... Normal [facility] Determination of erythrocyte mean corpuscular volume (MCV)Ordered By: Lali Pimentel on 06-16-2023 MCV (RBC) [Entitic vol] 90.3 fL 81-99 [facility] ED Provider Noteon ED Provider Note Emergency Department Encounter [facility] EMERGENCY DEPT Patient: Ezra Gonzalez : 1935 [...] for clarification.) Sae Conde MD Acute Care [facility] Sae Conde MD 06/16/23 1626 [facility] ED Provider Note EMERGENCY DEPARTMENT ENCOUNTER Pt Name: Ezra Gonzalez Birthdate 1935 Date of evaluation: 06/16/2023 ED Provider: NADIA Ruiz CHIEF COMPLAINT Chief Complaint Patient presents with Arm Injury Pt arrives via [facility] from [facility] with complaints of right elbow fracture. Patient [...] injury anywhere else. Patient was evaluated at [facility] emergency department prior to arrival and was noted to have a distal humerus fracture. Patient was transferred to [facility] ED for orthopedic consultation. Patient denies any [...] 4.4 (*) (more content not included)... Normal [facility] Erythrocyte distribution wid th ratioOrdered By: Lali Pimentel on 06-16-2023 Erythrocyte distribution width (RBC) [Ratio] 13.3 % 11.6-14.6 [facility] Erythrocyte distribution wid th standard deviationOrdered By: Lali Pimentel on 06-16-2023 Erythrocyte distribution width (RBC) [Entitic vol] 43.9 fL 35.1-43.9 [facility] Hematocrit Auto (Bld) [Volum e fraction]Ordered By: Lali Pimentel on 06-16-2023 Hematocrit (Bld) [Volume fraction] 42.6 % 37-47 [facility] Immature granulocytes/100 WB C Auto (Bld)Ordered By: Lali Pimentel on 06-16-2023 Immature granulocytes/100 WBC (Bld) 0.500 % 0.0-0.9 [facility] Comment on above: IG% - Immature Granu locytes (promyelocytes, myelocytes and metamyelocytes) > 1% indicates that a LEFT SHIFT is Present. Laboratory - Blood bankon ABO group Nom (Bld) A [facility] D Ag Ql (RBC) Positive [facility] Laboratory - Chemistry and C hemistry - challengeOrdered By: Lali Pimentel on 06-16-2023 CO2 [Moles/Vol] 31.0 mmol/L 21.0-32.0 [facility] Urea nitrogen/Creatinine [Mass ratio] 20.9 mg/mg 10-20 [facility] Laboratory - Coagulationon 0 06-16-2023 PT Coag (Bld) [Time] 22.3 s High 9.0 - 12.0 s [facility] Laboratory - CoagulationOrde red By: Lali Pimentel on 06-16-2023 INR Coag (Bld) [Relative time] 2.2 {INR} [facility] PT Coag (PPP) [Time] 24.3 s 11.7-14.9 [facility] Laboratory - Hematology and Cell countsOrdered By: Lali Pimentel on 06-16-2023 MCH (RBC) [Entitic mass] 28.8 pg 27.0-32.0 [facility] MCHC (RBC) [Mass/Vol] 31.9 g/dL 32-36 [facility] Nucleated RBC/100 WBC (Bld) [Ratio] 0 % 0-5 [facility] Platelet mean volume (Bld) [Entitic vol] 9.9 fL 6.2-12.0 [facility] Platelets (Bld) [#/Vol] 414 10*3/uL 150-450 [facility] No Panel Informationon 06-15 [facility] No Panel InformationOrdered By: Lali Pimentel on 06-16-2023 Estimated Creatinine Clearance Calc 35.56 ml/min [facility] Estimated GFR (MDRD) Amer 57 mL/min >60 [facility] Comment on above: GFR Calc Estimated GFR (MDRD) Non-Af Amer 47 mL/min >60 [facility] Comment on above: Non- GFR Calc PROTHROMBIN TIMEon INR Coag (PPP) [Relative time] 2.2 {INR} High 0.9-1.1 [facility] Comment on above: Result Comment: Reji [...] Myocardial Infarction Performed By: #### L [id number] ####Chief Business Development Officer: ALEXANDRA BUSTAMANTE ([phone])[facility] ([facility])[address] [place] [address] PT Coag (PPP) [Time] 22.3 s High 9.0-12.[address] [facility] Comment on above: Performed By: #### L [id number] ####Chief Business Development Officer: ALEXANDRA BUSTAMANTE ([phone])[facility] ([facility])[address] [place] [address] PT Coag (Bld) [Time]on 06-15 INR Coag (PPP) [Relative time] 2.2 {INR} High 0.9 - 1.1 [facility] Comment on above: Recommended Anticoag ulant [...] review of laboratory results Abnormal [facility] RBC Auto (Bld) [#/Vol]Ordere d By: Lali Pimentel on 06-16-2023 RBC (Bld) [#/Vol] 4.72 10*6/uL 4.2-5.4 [facility] Serum or plasma calcium viktoria urement (mass/volume)Ordered By: Lali Pimentel on 06-16-2023 Calcium [Mass/Vol] 8.8 mg/dL 8.5-10.1 [facility] Serum or plasma creatinine m easurement (mass/volume)Ordered By: Lali Pimentel on 06-16-2023 Creatinine [Mass/Vol] 1.15 mg/dL 0.55-1.02 [facility] Comment on above: The validity of the calculated GFR & GFRAA in patients over 70 years has not been determined. Clinical correlation is essential. Serum or plasma urea nitroge n measurement (mass/volume)Ordered By: Lali Pimentel on 06-16-2023 Urea nitrogen [Mass/Vol] 24 mg/dL 10-15 [facility] Thin prep Papanicolaou smear with manual screeningOrdered By: Lali Pimentel on 06-16-2023 Thin prep Papanicolaou smear with manual screening 5 5- [facility] XR Elbow - right 2 Viewson 0 06-16-2023 Patient Name: EZRA GONZALEZ : 1935 Exam [...] MD Electronically Signed Date/Time: 06/16/2023 3:38 PM T [facility] Sae Dudley MD - 06/16/2023 [...] Electronically Signed Date/Time: 06/16/2023 3:38 PM EDT [facility] Radiology Study observation (narrative) Trina Oconnell alth XR Elbow - right 2 ViewsOrde red By: Sae Dudley on 06-16-2023 [facility] Work Phone: XR Elbow - right 3 [...] Electronically Signed Date/Time: 06/16/2023 3:24 PM EDT [facility] Patient Name: EZRA GONZALEZ : 1935 [id number] Exam Date/Time: 06/16/2023 14:30 Procedure: XR ELBOW 3+ VIEWS RIGHT Ordering Provider: TENORIO KASSIDY Reason For Exam: comminuted slightly displaced supracondylar fx of distal humerus with extension to the medial epicondyle - seen at [place] cannot see imaging Examination: Right elbow Clinical Indication: Pain Comparison: None [facility] Pastor Francisco MD - 06/16/2023 Patient Name: EZRA GONZALEZ : 1935 Exam Date/Time: 06/16/2023 14:30 Procedure: XR ELBOW 3+ VIEWS RIGHT Ordering Provider: TENORIO KASSIDY Reason For Exam: comminuted slightly displaced supracondylar fx of distal humerus with extension to the medial epicondyle - seen at [place] cannot see imaging Examination: Right elbow Clinical [...] Electronically Signed Date/Time: 06/16/2023 3:24 PM EDT [facility] Radiology Study observation (narrative) Trina Oconnell alth XR Elbow - right 3 ViewsOrde red By: Pastor Francisco on 06-16-2023 [facility] [employer] Work Phone: XR Shoulder - right 2 [...] Electronically Signed Date/Time: 06/16/2023 3:30 PM EDT [facility] [employer] [facility] Patient Name: EZRA GONZALEZ : 1935 [...] glenohumeral joint. Acromioclavicular joint appears grossly intact. [facility] Reji Lemus MD - 06/16/2023 Patient [...] Electronically Signed Date/Time: 06/16/2023 3:30 PM EDT [facility] Radiology Study observation (narrative) [facility] alth XR Shoulder - right 2 ViewsO rdered By: Reji Lemus on 06-16-2023 [facility] Work Phone: Capillary blood internationa l normalized ratio (INR)Ordered By: Alexandra Hagen on 05-30-2023 INR Coag (BldC) [Relative time] 1.7 [facility] Comment on above: Critical Value > 4.0 Whole blood prothrombin time Ordered By: Alexandra Hagen on 05-30-2023 PT Coag (Bld) [Time] 18.0 s 11.7-14.9 [facility] Absolute lymphocyte countOrd ered By: Alexandra Hagen on 05-12-2023 Lymphocytes Auto (Unsp spec) [#/Vol] 1.60 10*3/uL 0.83-4.51 [facility] Automated lymphocyte count a s percentage of total leukocytesOrdered By: Alexandra Hagen on 05-12-2023 Lymphocytes/100 WBC Auto (Unsp spec) 20.2 % 19-41 [facility] Basophil percentageOrdered B y: Alexandra Hagen on 05-12-2023 Basophils/100 WBC (Bld) 0.5 % 0-1 [facility] Chloride [Moles/Vol] 109 mmol/L 98-107 [facility] Eosinophils/100 WBC (Bld) 3.7 % 0-5 [facility] Glucose [Mass/Vol] 206 mg/dL 74-106 [facility] Comment on above: Glucose result great er than or equal to 200 mg/dLsuggests DIABETES MELLITUS per A.D.A. criteria. Hemoglobin (Bld) [Mass/Vol] 13.1 g/dL 12.0-15.0 [facility] Monocytes/100 WBC (Bld) 7.8 % 0-10 [facility] Neutrophils (Bld) [#/Vol] 5.3 10*3/uL 2.0-7.7 [facility] Neutrophils/100 WBC (Bld) 67.5 % 47-70 [facility] Potassium [Moles/Vol] 4.6 mmol/L 3.5-5.1 [facility] Comment on above: Moderate Hemolysis, Result may be falsely increased. Sodium [Moles/Vol] 140 mmol/L 136-145 [facility] WBC (Bld) [#/Vol] 7.9 10*3/uL 4.4-11.0 [facility] Determination of erythrocyte mean corpuscular volume (MCV)Ordered By: Alexandra Hagen on 05-12-2023 MCV (RBC) [Entitic vol] 93.1 fL 81-99 [facility] Erythrocyte distribution wid th ratioOrdered By: Alexandra Hagen on 05-12-2023 Erythrocyte distribution width (RBC) [Ratio] 13.5 % 11.6-14.6 [facility] Erythrocyte distribution wid th standard deviationOrdered By: Alexandra Hagen on 05-12-2023 Erythrocyte distribution width (RBC) [Entitic vol] 46.0 fL 35.1-43.9 [facility] Hematocrit Auto (Bld) [Volum e fraction]Ordered By: Alexandra Hagen on 05-12-2023 Hematocrit (Bld) [Volume fraction] 41.8 % 37-47 [facility] Immature granulocytes/100 WB C Auto (Bld)Ordered By: Alexandra Hagen on 05-12-2023 Immature granulocytes/100 WBC (Bld) 0.300 % 0.0-0.9 [facility] Comment on above: IG% - Immature Granu locytes (promyelocytes, myelocytes and metamyelocytes) > 1% indicates that a LEFT SHIFT is Present. Laboratory - Chemistry and C hemistry - challengeOrdered By: Alexandra Hagen on 05-12-2023 CO2 [Moles/Vol] 25.0 mmol/L 21.0-32.0 [facility] Urea nitrogen/Creatinine [Mass ratio] 13.7 mg/mg 10-20 [facility] Laboratory - Hematology and Cell countsOrdered By: Alexandra Hagen on 05-12-2023 MCH (RBC) [Entitic mass] 29.2 pg 27.0-32.0 [facility] MCHC (RBC) [Mass/Vol] 31.3 g/dL 32-36 [facility] Nucleated RBC/100 WBC (Bld) [Ratio] 0 % 0-5 [facility] Platelet mean volume (Bld) [Entitic vol] 10.6 fL 6.2-12.0 [facility] Platelets (Bld) [#/Vol] 272 10*3/uL 150-450 [facility] No Panel InformationOrdered By: Alexandra Hagen on 05-12-2023 Estimated GFR (MDRD) Amer 53 mL/min >60 [facility] Comment on above: GFR Calc Estimated GFR (MDRD) Non-Af Amer 43 mL/min >60 [facility] Comment on above: Non- GFR Calc RBC Auto (Bld) [#/Vol]Ordere d By: Alexandra Hagen on 05-12-2023 RBC (Bld) [#/Vol] 4.49 10*6/uL 4.2-5.4 [facility] Serum or plasma calcium viktoria urement (mass/volume)Ordered By: Alexandra Hagen on 05-12-2023 Calcium [Mass/Vol] 8.5 mg/dL 8.5-10.1 [facility] Serum or plasma creatinine m easurement (mass/volume)Ordered By: Alexandra Hagen on 05-12-2023 Creatinine [Mass/Vol] 1.24 mg/dL 0.55-1.02 [facility] Comment on above: The validity of the calculated GFR & GFRAA in patients over 70 years has not been determined. Clinical correlation is essential. Serum or plasma urea nitroge n measurement (mass/volume)Ordered By: Alexandra Hagen on 05-12-2023 Urea nitrogen [Mass/Vol] 17 mg/dL -18 [facility] Thin prep Papanicolaou smear with manual screeningOrdered By: Alexandra Hagen on 05-12-2023 Thin prep Papanicolaou smear with manual screening 6 -15 [facility] Whole blood hemoglobin A1c/t otal hemoglobin ratio (mass fraction)Ordered By: Alexandra Hagen on 05-12-2023 HbA1c (Bld) [Mass fraction] 6.8 % 3.8-5.6 [facility] Comment on above: Normal < 5.7 % Predi abetic 5.7 - 6.4 % Diabetic >or= 6.5 % Please note range changes. Capillary blood internationa l normalized ratio (INR)Ordered By: Alexandra Hagen on 05-01-2023 INR Coag (BldC) [Relative time] 2.0 [facility] Comment on above: Critical Value > 4.0 Whole blood prothrombin time Ordered By: Alexandra Hagen on 05-01-2023 PT Coag (Bld) [Time] 21.0 s 11.7-14.9 [facility] International normalized rat io (INR) calculationOrdered By: Alexandra Hagen on 04-17-2023 INR Coag (PPP) [Relative time] 1.8 {INR} [facility] Laboratory - CoagulationOrde red By: Alexandra Hagen on 04-17-2023 PT Coag (PPP) [Time] 21.0 s 11.7-14.9 [facility] Laboratory - CoagulationOrde red By: Alexandra Hagen on 03-20-2023 INR Coag (Bld) [Relative time] 2.4 {INR} [facility] Comment on above: Critical Value > 4.0 Whole blood prothrombin time Ordered By: Alexandra Hagen on 03-20-2023 PT Coag (Bld) [Time] 25.7 s 11.7-14.9 [facility] Basophil percentageOrdered B y: Alexandra Hagen on 02-21-2023 Bilirubin [Mass/Vol] 0.60 mg/dL 0.20-1.00 [facility] Comment on above: For patients on eltr ombopag therapy, use of Dimension [place] TBIL is not recommended. Chloride [Moles/Vol] 107 mmol/L 98-107 [facility] Cholesterol [Mass/Vol] 127 mg/dL <200 [facility] Comment on above: <200 mg/dL Desirable 200-240 mg/dL Borderline >240 mg/dL High Risk Glucose [Mass/Vol] 134 mg/dL 74-106 [facility] [place] Comment on above: Fasting Glucose resu lt greater than or equal to 126 mg/dL suggests DIABETES MELLITUS per A.D.A. criteria. Potassium [Moles/Vol] 4.2 mmol/L 3.5-5.1 [facility] Protein [Mass/Vol] 6.2 g/dL 6.4-8.2 [facility] [place] Sodium [Moles/Vol] 138 mmol/L 136-145 [facility] [place] Triglyceride [Mass/Vol] 102 mg/dL <199 [facility] Comment on above: The drugs N-Acetylcy steine and Metamizole may falsely depress this assay.Serum Triglycerides Reference Interval Normal <150 mg/dL Borderline high 150 - 199 mg/dL High 200 - 499 mg/dL Very High > or = 500 mg/dL WBC (Bld) [#/Vol] 7.7 10*3/uL 4.4-11.0 [facility] [place] Blood erythrocytes count (nu mber/volume)Ordered By: Alexandra Hagen on 02-21-2023 RBC (Bld) [#/Vol] 4.19 10*6/uL 4.2-5.4 [facility] Blood hemoglobin measurement (mass/volume)Ordered By: Alexandra Hagen on 02-21-2023 Hemoglobin (Bld) [Mass/Vol] 12.5 g/dL 12.0-15.0 [facility] Blood platelet mean volumeOr dered By: Alexandra Hagen on 02-21-2023 Platelet mean volume (Bld) [Entitic vol] 10.8 fL 6.2-12.0 [facility] Determination of erythrocyte mean corpuscular volume (MCV)Ordered By: Alexandra Hagen on 02-21-2023 MCV (RBC) [Entitic vol] 91.2 fL 81-99 [facility] Hematocrit Auto (Bld) [Volum e fraction]Ordered By: Alexandra Hagen on 02-21-2023 Hematocrit (Bld) [Volume fraction] 38.2 % 37-47 [facility] INR in Blood by Coagulation assayOrdered By: Aelxandra Hagen on 02-21-2023 INR Coag (Bld) [Relative time] 2.3 {INR} [facility] Laboratory - Chemistry and C hemistry - challengeOrdered By: Alexandra Hagen on 02-21-2023 ALP [Catalytic activity/Vol] 84 U/L 45-117 [facility] ALT [Catalytic activity/Vol] 11 U/L 13-56 [facility] CO2 [Moles/Vol] 27.0 mmol/L 21.0-32.0 [facility] Globulin (S) [Mass/Vol] 3.3 g/dL 2.2-4.2 [facility] Urea nitrogen/Creatinine [Mass ratio] 14.0 mg/mg 10-20 [facility] Laboratory - CoagulationOrde red By: Alexandra Hagen on 02-21-2023 PT Coag (PPP) [Time] 25.3 s 11.7-14.9 [facility] Laboratory - Hematology and Cell countsOrdered By: Alexandra Hagen on 02-21-2023 Erythrocyte distribution width (RBC) [Entitic vol] 44.8 fL 35.1-43.9 [facility] [place] Erythrocyte distribution width (RBC) [Ratio] 13.4 % 11.6-14.6 [facility] MCH (RBC) [Entitic mass] 29.8 pg 27.0-32.0 [facility] MCHC Auto (RBC) [Mass/Vol]Or dered By: Alexandra Hagen on 02-21-2023 MCHC (RBC) [Mass/Vol] 32.7 g/dL 32-36 [facility] No Panel InformationOrdered By: Alexandra Hagen on 02-21-2023 Estimated GFR (MDRD) Amer 68 mL/min >60 [facility] Comment on above: GFR Calc Estimated GFR (MDRD) Non-Af Amer 56 mL/min >60 [facility] Comment on above: Non- GFR Calc Platelets bldOrdered By: Alexandra Hagen on 02-21-2023 Platelets (Bld) [#/Vol] 297 10*3/uL 150-450 [facility] Serum or plasma albumin viktoria urement (mass/volume)Ordered By: Alexandra Hagen on 02-21-2023 Albumin [Mass/Vol] 2.9 g/dL 3.2-5.0 [facility] [place] Serum or plasma albumin/glob ulin mass ratioOrdered By: Alexandra Hagen on 02-21-2023 Albumin/Globulin [Mass ratio] 0.9 {ratio} 0.9-2.4 [facility] Serum or plasma calcium viktoria urement (mass/volume)Ordered By: Alexandra Hagen on 02-21-2023 Calcium [Mass/Vol] 8.4 mg/dL 8.5-10.1 [facility] [place] Serum or plasma cholesterol in HDL measurement (mass/volume)Ordered By: Alexandra Hagen on 02-21-2023 Cholesterol in HDL [Mass/Vol] 50 mg/dL >40 [facility] Comment on above: The drugs N-Acetylcy steine and Metamizole may falsely depress this assay. Reference Range HDL <40 mg/dL Low HDL Cholesterol HDL >or= 60 mg/dL High HDL Cholesterol Serum or plasma cholesterol in VLDL measurement (mass/volume)Ordered By: Alexandra Hagen on 02-21-2023 Cholesterol in VLDL [Mass/Vol] 20 mg/dL 5-40 [facility] Serum or plasma creatinine m easurement (mass/volume)Ordered By: Alexandra Hagen on 02-21-2023 Creatinine [Mass/Vol] 1.00 mg/dL 0.55-1.02 [facility] Comment on above: The validity of the calculated GFR & GFRAA in patients over 70 years has not been determined. Clinical correlation is essential. Serum or plasma low density lipoprotein (LDL) cholesterol measurement (mass/volume)Ordered By: Alexandra Hagen on 02-21-2023 Cholesterol in LDL [Mass/Vol] 57 mg/dL 0-130 [facility] Serum or plasma urea nitroge n measurement (mass/volume)Ordered By: Alexandra Hagen on 02-21-2023 Urea nitrogen [Mass/Vol] 14 mg/dL 7-18 [facility] Thin prep Papanicolaou smear with manual screeningOrdered By: Alexandra Hagen on 02-21-2023 Thin prep Papanicolaou smear with manual screening 16 U/L 15-37 [facility] Thin prep Papanicolaou smear with manual screening 4 5-15 [facility] Albumin Elph [Mass/Vol]Order ed By: Anant Juarez on 01-20-2023 Albumin [Mass/Vol] 3.4 g/dL 2.9-4.4 [facility] [place] Basophil percentageOrdered B y: Anant Juarez on 01-20-2023 Basophil percentage Comment . [facility] Comment on above: No monoclonality det ected.Performed at: [employer] [address] [id number] Director: Master Vee PhD, Phone: [phone] Interpretation of serum or p lasma protein pattern by immunofixation (narrative resultOrdered By: Anant Juarez on 01-20-2023 Protein Fractions Immunofixation Manuel [Interp] See comment [facility] Comment on above: Result: Not Observed No Panel InformationOrdered By: Anant Juarez on 01-20-2023 Addendum Document Comment . [facility] Comment on above: Protein electrophore sis scan will follow via computer,mail, or assistant finance director delivery. Serum [id number] measu rement by electrophoresisOrdered By: Anant Juarez on 01-20-2023 Alpha 1 globulin Elph [Mass/Vol] 0.3 g/dL 0.0-0.4 [facility] Alpha 1 globulin Elph [Mass/Vol] 0.9 g/dL 0.4-1.0 [facility] Serum globulin measurement ( mass/volume)Ordered By: Anant Juarez on 01-20-2023 Globulin (S) [Mass/Vol] 3.0 g/dL 2.2-3.9 [facility] Serum or plasma IgA measurem ent (mass/volume)Ordered By: Anant Juarez on 01-20-2023 IgA [Mass/Vol] 158 mg/dL 64-422 [facility] Serum or plasma IgG measurem ent (mass/volume)Ordered By: Anant Juarez on 01-20-2023 IgG [Mass/Vol] 847 mg/dL [id number] [facility] Serum or plasma IgM measurem ent (mass/volume)Ordered By: Anant Juarez on 01-20-2023 IgM [Mass/Vol] 48 mg/dL 26-217 [facility] Serum or plasma beta globuli n measurement by electrophoresis (mass/volume)Ordered By: Anant Juarez on 01-20-2023 Beta globulin Elph [Mass/Vol] 1.0 g/dL 0.7-1.3 [facility] Serum or plasma gamma globul in measurement by electrophoresis (mass/volume)Ordered By: Anant Juarez on 01-20-2023 Gamma globulin Elph [Mass/Vol] 0.7 g/dL 0.4-1.8 [facility] Serum or plasma immunoelectr ophoresis interpretation (nominal result)Ordered By: Anant Juarez on 01-20-2023 Interpretation IEP [Interp] Comment . [facility] Comment on above: No monoclonality det ected. Thin prep Papanicolaou smear with manual screeningOrdered By: Anant Juarez on 01-20-2023 Thin prep Papanicolaou smear with manual screening 1.2 0.7-1.7 [facility] Total protein bloodOrdered B y: Anant Juarez on 01-20-2023 Protein [Mass/Vol] 6.4 g/dL 6.0-8.5 [facility] [place] Laboratory - CoagulationOrde red By: Alexandra Hagen on 01-16-2023 INR Coag (Bld) [Relative time] 2.2 {INR} [facility] Comment on above: Critical Value > 4.0 Whole blood prothrombin time Ordered By: Alexandra Hagen on 01-16-2023 PT Coag (Bld) [Time] 24.2 s 11.7-14.9 [facility] Absolute lymphocyte countOrd ered By: Lynn Horn on 12-28-2022 Lymphocytes Auto (Unsp spec) [#/Vol] 1.57 10*3/uL 0.83-4.51 [facility] Basophil percentageOrdered B y: Lynn Horn on 12-28-2022 Basophils/100 WBC (Bld) 0.6 % 0-1 [facility] Chloride [Moles/Vol] 108 mmol/L 98-107 [facility] Eosinophils/100 WBC (Bld) 3.0 % 0-5 [facility] Glucose [Mass/Vol] 117 mg/dL 74-106 [facility] [place] Comment on above: Fasting Glucose resu lt from 100 to 125 mg/dL suggests IMPAIRED HOMEOSTASIS per A.D.A. criteria. Neutrophils (Bld) [#/Vol] 5.3 10*3/uL 2.0-7.7 [facility] Neutrophils/100 WBC (Bld) 66.8 % 47-70 [facility] Potassium [Moles/Vol] 3.9 mmol/L 3.5-5.1 [facility] Sodium [Moles/Vol] 138 mmol/L 136-145 [facility] [place] WBC (Bld) [#/Vol] 7.9 10*3/uL 4.4-11.0 [facility] [place] Blood erythrocytes count (nu mber/volume)Ordered By: Lynn Horn on 12-28-2022 RBC (Bld) [#/Vol] 4.32 10*6/uL 4.2-5.4 [facility] Blood hemoglobin measurement (mass/volume)Ordered By: Lynn Horn on 12-28-2022 Hemoglobin (Bld) [Mass/Vol] 12.8 g/dL 12.0-15.0 [facility] Blood lymphocytes/100 leukoc ytesOrdered By: Lynn Horn on 12-28-2022 Lymphocytes/100 WBC (Bld) 19.8 % 19-41 [facility] Blood monocytes/100 leukocyt esOrdered By: Lynn Horn on 12-28-2022 Monocytes/100 WBC (Bld) 9.5 % 0-10 [facility] Blood platelet mean volumeOr dered By: Lynn Horn on 12-28-2022 Platelet mean volume (Bld) [Entitic vol] 10.6 fL 6.2-12.0 [facility] Determination of erythrocyte mean corpuscular volume (MCV)Ordered By: Lynn Horn on 12-28-2022 MCV (RBC) [Entitic vol] 91.0 fL 81-99 [facility] Hematocrit Auto (Bld) [Volum e fraction]Ordered By: Lynn Horn on 12-28-2022 Hematocrit (Bld) [Volume fraction] 39.3 % 37-47 [facility] INR in Blood by Coagulation assayOrdered By: Lynn Horn on 12-28-2022 INR Coag (Bld) [Relative time] 2.1 {INR} [facility] Laboratory - Chemistry and C hemistry - challengeOrdered By: Lynn Horn on 12-28-2022 CO2 [Moles/Vol] 27.0 mmol/L 21.0-32.0 [facility] Urea nitrogen/Creatinine [Mass ratio] 15.7 mg/mg 10-20 [facility] Laboratory - CoagulationOrde red By: Lynn Horn on 12-28-2022 PT Coag (PPP) [Time] 23.8 s 11.7-14.9 [facility] Laboratory - Hematology and Cell countsOrdered By: Lynn Horn on 12-28-2022 Erythrocyte distribution width (RBC) [Entitic vol] 43.0 fL 35.1-43.9 [facility] [place] Erythrocyte distribution width (RBC) [Ratio] 12.9 % 11.6-14.6 [facility] Immature granulocytes/100 WBC (Bld) 0.300 % 0.0-0.9 [facility] Comment on above: IG% - Immature Granu locytes (promyelocytes, myelocytes and metamyelocytes) > 1% indicates that a LEFT SHIFT is Present. MCH (RBC) [Entitic mass] 29.6 pg 27.0-32.0 [facility] Nucleated RBC/100 WBC (Bld) [Ratio] 0 % 0-5 [facility] MCHC Auto (RBC) [Mass/Vol]Or dered By: Lynn Horn on 12-28-2022 MCHC (RBC) [Mass/Vol] 32.6 g/dL 32-36 [facility] No Panel InformationOrdered By: Lynn Horn on 12-28-2022 Estimated Creatinine Clearance Calc 36.84 ml/min [facility] Estimated GFR (MDRD) Amer 77 mL/min >60 [facility] Comment on above: GFR Calc Estimated GFR (MDRD) Non-Af Amer 64 mL/min >60 [facility] Comment on above: Non- GFR Calc Platelets bldOrdered By: Lois Horn on 12-28-2022 Platelets (Bld) [#/Vol] 272 10*3/uL 150-450 [facility] Serum or plasma calcium viktoria urement (mass/volume)Ordered By: Lynn Horn on 12-28-2022 Calcium [Mass/Vol] 8.3 mg/dL 8.5-10.1 [facility] [place] Serum or plasma creatinine m easurement (mass/volume)Ordered By: Lynn Horn on 12-28-2022 Creatinine [Mass/Vol] 0.89 mg/dL 0.55-1.02 [facility] Comment on above: The validity of the calculated GFR & GFRAA in patients over 70 years has not been determined. Clinical correlation is essential. Serum or plasma urea nitroge n measurement (mass/volume)Ordered By: Lynn Horn on 12-28-2022 Urea nitrogen [Mass/Vol] 14 mg/dL 7-18 [facility] Thin prep Papanicolaou smear with manual screeningOrdered By: Lynn Horn on 12-28-2022 Thin prep Papanicolaou smear with manual screening 3 5-15 [facility] Laboratory - CoagulationOrde red By: Lali Pimentel on 12-27-2022 aPTT Coag (Bld) [Time] 48.2 s 24.1-36.2 [facility] No Panel InformationOrdered By: Lali Pimentel on 12-27-2022 Troponin I High Sensitivity 10 pg/mL 3.0-54.0 [facility] Comment on above: Please Note: New Evon t Units and Gender Specific Reference Ranges. For more information see Policy Stat Procedure [place] High Sensitivity Troponin (TNIH) and attachments. Laboratory - CoagulationOrde red By: Alexandra Hagen on 12-19-2022 INR Coag (Bld) [Relative time] 2.8 {INR} [facility] Comment on above: Critical Value > 4.0 Whole blood prothrombin time Ordered By: Alexandra Hagen on 12-19-2022 PT Coag (Bld) [Time] 29.7 s 11.7-14.9 [facility] Absolute lymphocyte countOrd ered By: Alexandra Hagen on 12-09-2022 Lymphocytes Auto (Unsp spec) [#/Vol] 1.65 10*3/uL 0.83-4.51 [facility] Basophil percentageOrdered B y: Alexandra Hagen on 12-09-2022 Basophils/100 WBC (Bld) 0.4 % 0-1 [facility] Chloride [Moles/Vol] 107 mmol/L 98-107 [facility] Eosinophils/100 WBC (Bld) 3.6 % 0-5 [facility] Glucose [Mass/Vol] 125 mg/dL 74-106 [facility] [place] Comment on above: Fasting Glucose resu lt from 100 to 125 mg/dL suggests IMPAIRED HOMEOSTASIS per A.D.A. criteria. Neutrophils (Bld) [#/Vol] 4.3 10*3/uL 2.0-7.7 [facility] Neutrophils/100 WBC (Bld) 61.6 % 47-70 [facility] Potassium [Moles/Vol] 4.8 mmol/L 3.5-5.1 [facility] Sodium [Moles/Vol] 138 mmol/L 136-145 [facility] [place] WBC (Bld) [#/Vol] 7.0 10*3/uL 4.4-11.0 [facility] [place] Blood erythrocytes count (nu mber/volume)Ordered By: Alexandra Hagen on 12-09-2022 RBC (Bld) [#/Vol] 4.30 10*6/uL 4.2-5.4 [facility] Blood hemoglobin measurement (mass/volume)Ordered By: Alexandra Hagen on 12-09-2022 Hemoglobin (Bld) [Mass/Vol] 13.1 g/dL 12.0-15.0 [facility] Blood lymphocytes/100 leukoc ytesOrdered By: Alexandra Hagen on 12-09-2022 Lymphocytes/100 WBC (Bld) 23.7 % 19-41 [facility] Blood monocytes/100 leukocyt esOrdered By: Alexandra Hagen on 12-09-2022 Monocytes/100 WBC (Bld) 10.4 % 0-10 [facility] Blood platelet mean volumeOr dered By: Alexandra Hagen on 12-09-2022 Platelet mean volume (Bld) [Entitic vol] 10.7 fL 6.2-12.0 [facility] Determination of erythrocyte mean corpuscular volume (MCV)Ordered By: Alexandra Hagen on 12-09-2022 MCV (RBC) [Entitic vol] 92.3 fL 81-99 [facility] Hematocrit Auto (Bld) [Volum e fraction]Ordered By: Alexandra Hagen on 12-09-2022 Hematocrit (Bld) [Volume fraction] 39.7 % 37-47 [facility] Laboratory - Chemistry and C hemistry - challengeOrdered By: Alexandra Hagen on 12-09-2022 CO2 [Moles/Vol] 26.0 mmol/L 21.0-32.0 [facility] Urea nitrogen/Creatinine [Mass ratio] 14.4 mg/mg 10-20 [facility] Laboratory - Hematology and Cell countsOrdered By: Alexandra Hagen on 12-09-2022 Erythrocyte distribution width (RBC) [Entitic vol] 44.0 fL 35.1-43.9 [facility] [place] Erythrocyte distribution width (RBC) [Ratio] 13.1 % 11.6-14.6 [facility] Immature granulocytes/100 WBC (Bld) 0.300 % 0.0-0.9 [facility] Comment on above: IG% - Immature Granu locytes (promyelocytes, myelocytes and metamyelocytes) > 1% indicates that a LEFT SHIFT is Present. MCH (RBC) [Entitic mass] 30.5 pg 27.0-32.0 [facility] Nucleated RBC/100 WBC (Bld) [Ratio] 0 % 0-5 [facility] MCHC Auto (RBC) [Mass/Vol]Or dered By: Alexandra Hagen on 12-09-2022 MCHC (RBC) [Mass/Vol] 33.0 g/dL 32-36 [facility] No Panel InformationOrdered By: Alexandra Hagen on 12-09-2022 Estimated GFR (MDRD) Amer 60 mL/min >60 [facility] Comment on above: GFR Calc Estimated GFR (MDRD) Non-Af Amer 49 mL/min >60 [facility] Comment on above: Non- GFR Calc Platelets bldOrdered By: Alexandra Hgaen on 12-09-2022 Platelets (Bld) [#/Vol] 293 10*3/uL 150-450 [facility] Serum or plasma calcium viktoria urement (mass/volume)Ordered By: Alexandra Hagen on 12-09-2022 Calcium [Mass/Vol] 8.7 mg/dL 8.5-10.1 [facility] [place] Serum or plasma creatinine m easurement (mass/volume)Ordered By: Alexandra Hagen on 12-09-2022 Creatinine [Mass/Vol] 1.11 mg/dL 0.55-1.02 [facility] Comment on above: The validity of the calculated GFR & GFRAA in patients over 70 years has not been determined. Clinical correlation is essential. Serum or plasma urea nitroge n measurement (mass/volume)Ordered By: Alexandra Hagen on 12-09-2022 Urea nitrogen [Mass/Vol] 16 mg/dL 7-18 [facility] Thin prep Papanicolaou smear with manual screeningOrdered By: Alexandra Hagen on 12-09-2022 Thin prep Papanicolaou smear with manual screening 5 5-15 [facility] Whole blood hemoglobin A1c/t otal hemoglobin ratio (mass fraction)Ordered By: Alexandra Hagen on 12-09-2022 HbA1c (Bld) [Mass fraction] 6.7 % 3.8-5.6 [facility] Comment on above: Normal < 5.7 % Predi abetic 5.7 - 6.4 % Diabetic >or= 6.5 % Please note range changes. Basophil percentageOrdered B y: Alexandra Hagen on 11-20-2022 Bilirubin [Mass/Vol] 0.50 mg/dL 0.20-1.00 [facility] Comment on above: For patients on eltr ombopag therapy, use of Dimension [place] TBIL is not recommended. Chloride [Moles/Vol] 105 mmol/L 98-107 [facility] Cholesterol [Mass/Vol] 167 mg/dL <200 [facility] Comment on above: <200 mg/dL Desirable 200-240 mg/dL Borderline >240 mg/dL High Risk Glucose [Mass/Vol] 153 mg/dL 74-106 [facility] [place] Comment on above: Fasting Glucose resu lt greater than or equal to 126 mg/dL suggests DIABETES MELLITUS per A.D.A. criteria. Potassium [Moles/Vol] 4.2 mmol/L 3.5-5.1 [facility] Protein [Mass/Vol] 6.7 g/dL 6.4-8.2 [facility] [place] Sodium [Moles/Vol] 138 mmol/L 136-145 [facility] [place] Triglyceride [Mass/Vol] 120 mg/dL <199 [facility] Comment on above: The drugs N-Acetylcy steine and Metamizole may falsely depress this assay.Serum Triglycerides Reference Interval Normal <150 mg/dL Borderline high 150 - 199 mg/dL High 200 - 499 mg/dL Very High > or = 500 mg/dL WBC (Bld) [#/Vol] 7.4 10*3/uL 4.4-11.0 [facility] [facility] [place] Blood erythrocytes count (nu mber/volume)Ordered By: Alexandra Hagen on 11-20-2022 RBC (Bld) [#/Vol] 4.37 10*6/uL 4.2-5.4 [facility] Blood hemoglobin measurement (mass/volume)Ordered By: Alexandra Hagen on 11-20-2022 Hemoglobin (Bld) [Mass/Vol] 13.1 g/dL 12.0-15.0 [facility] Blood platelet mean volumeOr dered By: Alexandra Hagen on 11-20-2022 Platelet mean volume (Bld) [Entitic vol] 10.8 fL 6.2-12.0 [facility] Determination of erythrocyte mean corpuscular volume (MCV)Ordered By: Alexandra Hagen on 11-20-2022 MCV (RBC) [Entitic vol] 91.5 fL 81-99 [facility] Hematocrit Auto (Bld) [Volum e fraction]Ordered By: Alexandra Hagen on 11-20-2022 Hematocrit (Bld) [Volume fraction] 40.0 % 37-47 [facility] INR in Blood by Coagulation assayOrdered By: Alexandra Hagen on 11-20-2022 INR Coag (Bld) [Relative time] 2.0 {INR} [facility] Laboratory - Chemistry and C hemistry - challengeOrdered By: Alexandra Hagen on 11-20-2022 ALP [Catalytic activity/Vol] 72 U/L 45-117 [facility] ALT [Catalytic activity/Vol] 13 U/L 13-56 [facility] CO2 [Moles/Vol] 30.0 mmol/L 21.0-32.0 [facility] Globulin (S) [Mass/Vol] 3.6 g/dL 2.2-4.2 [facility] Urea nitrogen/Creatinine [Mass ratio] 12.8 mg/mg 10-20 [facility] Laboratory - CoagulationOrde red By: Alexandra Hagen on 11-20-2022 PT Coag (PPP) [Time] 22.6 s 11.7-14.9 [facility] Laboratory - Hematology and Cell countsOrdered By: Alexandra Haegn on 11-20-2022 Erythrocyte distribution width (RBC) [Entitic vol] 43.4 fL 35.1-43.9 [facility] [place] Erythrocyte distribution width (RBC) [Ratio] 12.9 % 11.6-14.6 [facility] MCH (RBC) [Entitic mass] 30.0 pg 27.0-32.0 [facility] MCHC Auto (RBC) [Mass/Vol]Or dered By: Alexandra Hagen on 11-20-2022 MCHC (RBC) [Mass/Vol] 32.8 g/dL 32-36 [facility] No Panel InformationOrdered By: Alexandra Hagen on 11-20-2022 Estimated GFR (MDRD) Amer 61 mL/min >60 [facility] Comment on above: GFR Calc Estimated GFR (MDRD) Non-Af Amer 50 mL/min >60 [facility] Comment on above: Non- GFR Calc Platelets bldOrdered By: Alexandra Hagen on 11-20-2022 Platelets (Bld) [#/Vol] 310 10*3/uL 150-450 [facility] Serum or plasma albumin viktoria urement (mass/volume)Ordered By: Alexandra Hagen on 11-20-2022 Albumin [Mass/Vol] 3.1 g/dL 3.2-5.0 [facility] [place] Serum or plasma albumin/glob ulin mass ratioOrdered By: Alexandra Hagen on 11-20-2022 Albumin/Globulin [Mass ratio] 0.9 {ratio} 0.9-2.4 [facility] Serum or plasma calcium viktoria urement (mass/volume)Ordered By: Alexandra Hagen on 11-20-2022 Calcium [Mass/Vol] 8.6 mg/dL 8.5-10.1 [facility] [place] Serum or plasma cholesterol in HDL measurement (mass/volume)Ordered By: Alexandra Hagen on 11-20-2022 Cholesterol in HDL [Mass/Vol] 55 mg/dL >40 [facility] Comment on above: The drugs N-Acetylcy steine and Metamizole may falsely depress this assay. Reference Range HDL <40 mg/dL Low HDL Cholesterol HDL >or= 60 mg/dL High HDL Cholesterol Serum or plasma cholesterol in VLDL measurement (mass/volume)Ordered By: Alexandra Hagen on 11-20-2022 Cholesterol in VLDL [Mass/Vol] 24 mg/dL 5-40 [facility] Serum or plasma creatinine m easurement (mass/volume)Ordered By: Alexandra Hagen on 11-20-2022 Creatinine [Mass/Vol] 1.09 mg/dL 0.55-1.02 [facility] Comment on above: The validity of the calculated GFR & GFRAA in patients over 70 years has not been determined. Clinical correlation is essential. Serum or plasma low density lipoprotein (LDL) cholesterol measurement (mass/volume)Ordered By: Alexandra Hagen on 11-20-2022 Cholesterol in LDL [Mass/Vol] 88 mg/dL 0-130 [facility] Serum or plasma urea nitroge n measurement (mass/volume)Ordered By: Alexandra Hagen on 11-20-2022 Urea nitrogen [Mass/Vol] 14 mg/dL 7-18 [facility] Thin prep Papanicolaou smear with manual screeningOrdered By: Alexandra Hagen on 11-20-2022 Thin prep Papanicolaou smear with manual screening 15 U/L 15-37 [facility] Thin prep Papanicolaou smear with manual screening 3 5-15 [facility] Absolute lymphocyte countOrd ered By: Mo Corea on 11-18-2022 Lymphocytes Auto (Unsp spec) [#/Vol] 1.95 10*3/uL 0.83-4.51 [facility] Basophil percentageOrdered B y: Mo Corea on 11-18-2022 Basophil percentage 0-5 SEEN /hpf 0-5 [facility] Basophils/100 WBC (Bld) 0.4 % 0-1 [facility] Bilirubin [Mass/Vol] 0.40 mg/dL 0.20-1.00 [facility] Comment on above: For patients on eltr ombopag therapy, use of Dimension [place] TBIL is not recommended. Chloride [Moles/Vol] 108 mmol/L 98-107 [facility] Eosinophils/100 WBC (Bld) 3.4 % 0-5 [facility] Glucose [Mass/Vol] 126 mg/dL 74-106 [facility] [place] Comment on above: Fasting Glucose resu lt greater than or equal to 126 mg/dL suggests DIABETES MELLITUS per A.D.A. criteria. Neutrophils (Bld) [#/Vol] 4.4 10*3/uL 2.0-7.7 [facility] Neutrophils/100 WBC (Bld) 59.9 % 47-70 [facility] Potassium [Moles/Vol] 3.9 mmol/L 3.5-5.1 [facility] Protein [Mass/Vol] 6.9 g/dL 6.4-8.2 [facility] [place] Sodium [Moles/Vol] 140 mmol/L 136-145 [facility] [place] WBC (Bld) [#/Vol] 7.3 10*3/uL 4.4-11.0 [facility] [place] Bilirubin Test strip Ql (U)O rdered By: Mo Corea on 11-18-2022 Bilirubin Ql (U) Negative Negative [facility] Blood erythrocytes count (nu mber/volume)Ordered By: Mo Corea on 11-18-2022 RBC (Bld) [#/Vol] 4.63 10*6/uL 4.2-5.4 [facility] Blood hemoglobin measurement (mass/volume)Ordered By: Mo Corea on 11-18-2022 Hemoglobin (Bld) [Mass/Vol] 13.9 g/dL 12.0-15.0 [facility] Blood lymphocytes/100 leukoc ytesOrdered By: Mo Corea on 11-18-2022 Lymphocytes/100 WBC (Bld) 26.8 % 19-41 [facility] Blood monocytes/100 leukocyt esOrdered By: Mo Corea on 11-18-2022 Monocytes/100 WBC (Bld) 9.2 % 0-10 [facility] Blood platelet mean volumeOr dered By: Mo Corea on 11-18-2022 Platelet mean volume (Bld) [Entitic vol] 10.5 fL 6.2-12.0 [facility] Determination of erythrocyte mean corpuscular volume (MCV)Ordered By: Mo Corea on 11-18-2022 MCV (RBC) [Entitic vol] 92.4 fL 81-99 [facility] Hematocrit Auto (Bld) [Volum e fraction]Ordered By: Mo Corea on 11-18-2022 Hematocrit (Bld) [Volume fraction] 42.8 % 37-47 [facility] INR in Blood by Coagulation assayOrdered By: Mo Corea on 11-18-2022 INR Coag (Bld) [Relative time] 2.0 {INR} [facility] Ketones Test strip Ql (U)Ord ered By: Mo Corea on 11-18-2022 Ketones Ql (U) Negative Negative [facility] Laboratory - Chemistry and C hemistry - challengeOrdered By: Mo Corea on 11-18-2022 ALP [Catalytic activity/Vol] 76 U/L 45-117 [facility] ALT [Catalytic activity/Vol] 13 U/L 13-56 [facility] CO2 [Moles/Vol] 30.0 mmol/L 21.0-32.0 [facility] Globulin (S) [Mass/Vol] 3.6 g/dL 2.2-4.2 [facility] Urea nitrogen/Creatinine [Mass ratio] 13.6 mg/mg 10-20 [facility] Laboratory - CoagulationOrde red By: Mo Corea on 11-18-2022 aPTT Coag (Bld) [Time] 48.1 s 24.1-36.2 [facility] PT Coag (PPP) [Time] 22.7 s 11.7-14.9 [facility] Laboratory - Hematology and Cell countsOrdered By: Mo Corea on 11-18-2022 Erythrocyte distribution width (RBC) [Entitic vol] 44.2 fL 35.1-43.9 [facility] [place] Erythrocyte distribution width (RBC) [Ratio] 13.1 % 11.6-14.6 [facility] Immature granulocytes/100 WBC (Bld) 0.300 % 0.0-0.9 [facility] Comment on above: IG% - Immature Granu locytes (promyelocytes, myelocytes and metamyelocytes) > 1% indicates that a LEFT SHIFT is Present. MCH (RBC) [Entitic mass] 30.0 pg 27.0-32.0 [facility] Nucleated RBC/100 WBC (Bld) [Ratio] 0 % 0-5 [facility] MCHC Auto (RBC) [Mass/Vol]Or dered By: Mo Corea on 11-18-2022 MCHC (RBC) [Mass/Vol] 32.5 g/dL 32-36 [facility] Mucus LM Ql (Urine sed)Order ed By: Mo Corea on 11-18-2022 Mucus Ql (Urine sed) 0 SEEN /hpf [facility] Nitrite Test strip Ql (U)Ord ered By: Mo Corea on 11-18-2022 Nitrite Ql (U) Negative Negative [facility] No Panel InformationOrdered By: Mo Corea on 11-18-2022 Estimated Creatinine Clearance Calc 31.83 ml/min [facility] Estimated GFR (MDRD) Amer 65 mL/min >60 [facility] Comment on above: GFR Calc Estimated GFR (MDRD) Non-Af Amer 54 mL/min >60 [facility] Comment on above: Non- GFR Calc Platelets bldOrdered By: Rebecca Corea on 11-18-2022 Platelets (Bld) [#/Vol] 289 10*3/uL 150-450 [facility] Protein Test strip Ql (U)Ord ered By: Mo Corea on 11-18-2022 Protein Ql (U) 15 mg/dl Negative [facility] Serum or plasma albumin viktoria urement (mass/volume)Ordered By: Mo Corea on 11-18-2022 Albumin [Mass/Vol] 3.3 g/dL 3.2-5.0 [facility] [place] Serum or plasma albumin/glob ulin mass ratioOrdered By: Mo Corea on 11-18-2022 Albumin/Globulin [Mass ratio] 0.9 {ratio} 0.9-2.4 [facility] Serum or plasma calcium viktoria urement (mass/volume)Ordered By: Mo Corea on 11-18-2022 Calcium [Mass/Vol] 8.7 mg/dL 8.5-10.1 [facility] [place] Serum or plasma creatinine m easurement (mass/volume)Ordered By: Mo Corea on 11-18-2022 Creatinine [Mass/Vol] 1.03 mg/dL 0.55-1.02 [facility] Comment on above: The validity of the calculated GFR & GFRAA in patients over 70 years has not been determined. Clinical correlation is essential. Serum or plasma urea nitroge n measurement (mass/volume)Ordered By: Mo Corea on 11-18-2022 Urea nitrogen [Mass/Vol] 14 mg/dL 7-18 [facility] Squamous epithelial cells de tection in urine sediment by light microscopyOrdered By: Mo Corea on 11-18-2022 Epithelial cells.squamous LM Ql (Urine sed) 0-5 SEEN /hpf 5-10 [facility] Thin prep Papanicolaou smear with manual screeningOrdered By: Mo Corea on 11-18-2022 Thin prep Papanicolaou smear with manual screening 15 U/L 15-37 [facility] Thin prep Papanicolaou smear with manual screening 2 5-15 [facility] Urine blood detectionOrdered By: Mo Corea on 11-18-2022 RBC Ql (U) Negative Negative [facility] RBC Ql (U) 0 SEEN /hpf 0-5 [facility] Urine clarityOrdered By: Rebecca Corea on 11-18-2022 Clarity (U) Sl. Cloudy Clear [facility] Urine color determinationOrd ered By: Mo Corea on 11-18-2022 Color (U) Yellow Yellow [facility] Urine glucose detectionOrder ed By: Mo Corea on 11-18-2022 Glucose Ql (U) Normal mg/dl Normal [facility] Urine leukocyte esterase det ection by dipstickOrdered By: Mo Corea on 11-18-2022 Leukocyte esterase Test strip Ql (U) 25 /ul Negative [facility] Urine pHOrdered By: Mo amado on 11-18-2022 pH (U) 7.0 [pH] 5.0 - 8.0 [facility] Urine sediment bacteria coun t by microscopy (number/high power field)Ordered By: Mo Corea on 11-18-2022 Bacteria LM.HPF (Urine sed) [#/Area] 0 /[HPF] None Seen [facility] Urine specific gravity measu rementOrdered By: Mo Corea on 11-18-2022 Specific gravity (U) [Rel density] 1.010 1.002-1.030 [facility] Urobilinogen Auto test strip Ql (U)Ordered By: Mo Corea on 11-18-2022 Urobilinogen Ql (U) Normal mg/dl Normal [facility] Absolute lymphocyte countOrd ered By: Sae Carballo on 11-15-2022 Lymphocytes Auto (Unsp spec) [#/Vol] 2.03 10*3/uL 0.83-4.51 [facility] Basophil percentageOrdered B y: Sae Carballo on 11-15-2022 Basophils/100 WBC (Bld) 0.5 % 0-1 [facility] Chloride [Moles/Vol] 107 mmol/L 98-107 [facility] Cholesterol [Mass/Vol] 164 mg/dL <200 [facility] Comment on above: <200 mg/dL Desirable 200-240 mg/dL Borderline >240 mg/dL High Risk Eosinophils/100 WBC (Bld) 3.5 % 0-5 [facility] Glucose [Mass/Vol] 124 mg/dL 74-106 [facility] [place] Comment on above: Fasting Glucose resu lt from 100 to 125 mg/dL suggests IMPAIRED HOMEOSTASIS per A.D.A. criteria. Neutrophils (Bld) [#/Vol] 4.7 10*3/uL 2.0-7.7 [facility] Neutrophils/100 WBC (Bld) 60.3 % 47-70 [facility] Potassium [Moles/Vol] 4.1 mmol/L 3.5-5.1 [facility] Sodium [Moles/Vol] 139 mmol/L 136-145 [facility] [place] Triglyceride [Mass/Vol] 133 mg/dL <199 [facility] Comment on above: The drugs N-Acetylcy steine and Metamizole may falsely depress this assay.Serum Triglycerides Reference Interval Normal <150 mg/dL Borderline high 150 - 199 mg/dL High 200 - 499 mg/dL Very High > or = 500 mg/dL WBC (Bld) [#/Vol] 7.8 10*3/uL 4.4-11.0 [facility] [place] Blood erythrocytes count (nu mber/volume)Ordered By: Sae Carballo on 11-15-2022 RBC (Bld) [#/Vol] 4.32 10*6/uL 4.2-5.4 [facility] Blood hemoglobin measurement (mass/volume)Ordered By: Sae Carballo on 11-15-2022 Hemoglobin (Bld) [Mass/Vol] 12.9 g/dL 12.0-15.0 [facility] Blood lymphocytes/100 leukoc ytesOrdered By: Sae Carballo on 11-15-2022 Lymphocytes/100 WBC (Bld) 26.2 % 19-41 [facility] Blood monocytes/100 leukocyt esOrdered By: Sae Carballo on 11-15-2022 Monocytes/100 WBC (Bld) 9.4 % 0-10 [facility] Blood platelet mean volumeOr dered By: Sae Carballo on 11-15-2022 Platelet mean volume (Bld) [Entitic vol] 10.6 fL 6.2-12.0 [facility] Determination of erythrocyte mean corpuscular volume (MCV)Ordered By: Sae Carballo on 11-15-2022 MCV (RBC) [Entitic vol] 91.7 fL 81-99 [facility] Hematocrit Auto (Bld) [Volum e fraction]Ordered By: Sae Carballo on 11-15-2022 Hematocrit (Bld) [Volume fraction] 39.6 % 37-47 [facility] INR in Blood by Coagulation assayOrdered By: Sae Carballo on 11-15-2022 INR Coag (Bld) [Relative time] 2.0 {INR} [facility] Laboratory - Chemistry and C hemistry - challengeOrdered By: Sae Carballo on 11-15-2022 CO2 [Moles/Vol] 25.0 mmol/L 21.0-32.0 [facility] Urea nitrogen/Creatinine [Mass ratio] 15.8 mg/mg 10-20 [facility] Laboratory - CoagulationOrde red By: Sae Carballo on 11-15-2022 PT Coag (PPP) [Time] 23.0 s 11.7-14.9 [facility] Laboratory - Hematology and Cell countsOrdered By: Sae Carballo on 11-15-2022 Erythrocyte distribution width (RBC) [Entitic vol] 43.4 fL 35.1-43.9 [facility] [place] Erythrocyte distribution width (RBC) [Ratio] 12.9 % 11.6-14.6 [facility] Immature granulocytes/100 WBC (Bld) 0.100 % 0.0-0.9 [facility] Comment on above: IG% - Immature Granu locytes (promyelocytes, myelocytes and metamyelocytes) > 1% indicates that a LEFT SHIFT is Present. MCH (RBC) [Entitic mass] 29.9 pg 27.0-32.0 [facility] Nucleated RBC/100 WBC (Bld) [Ratio] 0 % 0-5 [facility] MCHC Auto (RBC) [Mass/Vol]Or dered By: Sae Carballo on 11-15-2022 MCHC (RBC) [Mass/Vol] 32.6 g/dL 32-36 [facility] No Panel InformationOrdered By: Sae Carballo on 11-15-2022 Estimated Creatinine Clearance Calc 37.26 ml/min [facility] Estimated GFR (MDRD) Amer 78 mL/min >60 [facility] Comment on above: GFR Calc Estimated GFR (MDRD) Non-Af Amer 64 mL/min >60 [facility] Comment on above: Non- GFR Calc Platelets bldOrdered By: Ramos Carballo on 11-15-2022 Platelets (Bld) [#/Vol] 278 10*3/uL 150-450 [facility] Serum or plasma calcium viktoria urement (mass/volume)Ordered By: Sae Carballo on 11-15-2022 Calcium [Mass/Vol] 8.5 mg/dL 8.5-10.1 [facility] [place] Serum or plasma cholesterol in HDL measurement (mass/volume)Ordered By: Sae Carballo on 11-15-2022 Cholesterol in HDL [Mass/Vol] 49 mg/dL >40 [facility] Comment on above: The drugs N-Acetylcy steine and Metamizole may falsely depress this assay. Reference Range HDL <40 mg/dL Low HDL Cholesterol HDL >or= 60 mg/dL High HDL Cholesterol Serum or plasma cholesterol in VLDL measurement (mass/volume)Ordered By: Sae Carballo on 11-15-2022 Cholesterol in VLDL [Mass/Vol] 27 mg/dL 5-40 [facility] Serum or plasma creatinine m easurement (mass/volume)Ordered By: Sae Carballo on 11-15-2022 Creatinine [Mass/Vol] 0.88 mg/dL 0.55-1.02 [facility] Comment on above: The validity of the calculated GFR & GFRAA in patients over 70 years has not been determined. Clinical correlation is essential. Serum or plasma low density lipoprotein (LDL) cholesterol measurement (mass/volume)Ordered By: Sae Carballo on 11-15-2022 Cholesterol in LDL [Mass/Vol] 88 mg/dL 0-130 [facility] Serum or plasma urea nitroge n measurement (mass/volume)Ordered By: Sae Carballo on 11-15-2022 Urea nitrogen [Mass/Vol] 14 mg/dL 7-18 [facility] Thin prep Papanicolaou smear with manual screeningOrdered By: Sae Carballo on 11-15-2022 Thin prep Papanicolaou smear with manual screening 7 5-15 [facility] Absolute lymphocyte countOrd ered By: eNri Mitchell on 11-14-2022 Lymphocytes Auto (Unsp spec) [#/Vol] 2.35 10*3/uL 0.83-4.51 [facility] Basophil percentageOrdered B y: Neri Mtichell on 11-14-2022 Basophils/100 WBC (Bld) 0.6 % 0-1 [facility] Chloride [Moles/Vol] 104 mmol/L 98-107 [facility] Eosinophils/100 WBC (Bld) 2.4 % 0-5 [facility] Glucose [Mass/Vol] 135 mg/dL 74-106 [facility] [place] Comment on above: Fasting Glucose resu lt greater than or equal to 126 mg/dL suggests DIABETES MELLITUS per A.D.A. criteria. Neutrophils (Bld) [#/Vol] 6.0 10*3/uL 2.0-7.7 [facility] Neutrophils/100 WBC (Bld) 64.0 % 47-70 [facility] Potassium [Moles/Vol] 4.0 mmol/L 3.5-5.1 [facility] Sodium [Moles/Vol] 138 mmol/L 136-145 [facility] [place] WBC (Bld) [#/Vol] 9.4 10*3/uL 4.4-11.0 [facility] [place] Blood erythrocytes count (nu mber/volume)Ordered By: Neri Mitchell on 11-14-2022 RBC (Bld) [#/Vol] 4.79 10*6/uL 4.2-5.4 [facility] Blood hemoglobin measurement (mass/volume)Ordered By: Neri Mitchell on 11-14-2022 Hemoglobin (Bld) [Mass/Vol] 14.3 g/dL 12.0-15.0 [facility] Blood lymphocytes/100 leukoc ytesOrdered By: Neri Mitchell on 11-14-2022 Lymphocytes/100 WBC (Bld) 24.9 % 19-41 [facility] Blood monocytes/100 leukocyt esOrdered By: Neri Mitchell on 11-14-2022 Monocytes/100 WBC (Bld) 7.8 % 0-10 [facility] Blood platelet mean volumeOr dered By: Neri Mitchell on 11-14-2022 Platelet mean volume (Bld) [Entitic vol] 10.6 fL 6.2-12.0 [facility] Determination of erythrocyte mean corpuscular volume (MCV)Ordered By: Neri Mitchell on 11-14-2022 MCV (RBC) [Entitic vol] 93.5 fL 81-99 [facility] Glucose Glucometer (BldC) [M ass/Vol]Ordered By: Neri Mitchell on 11-14-2022 Glucose [Mass/Vol] 136 mg/dL 74-106 [facility] [place] Comment on above: MANAGEMENT OF PATIEN T CARE PER NURSING PROTOCOL Hematocrit Auto (Bld) [Volum e fraction]Ordered By: Neri Mitchell on 11-14-2022 Hematocrit (Bld) [Volume fraction] 44.8 % 37-47 [facility] INR in Blood by Coagulation assayOrdered By: Neri Mitchell on 11-14-2022 INR Coag (Bld) [Relative time] 1.8 {INR} [facility] Laboratory - Chemistry and C hemistry - challengeOrdered By: Neri Mitchell on 11-14-2022 CO2 [Moles/Vol] 28.0 mmol/L 21.0-32.0 [facility] Urea nitrogen/Creatinine [Mass ratio] 12.3 mg/mg 10-20 [facility] Laboratory - CoagulationOrde red By: Neri Mitchell on 11-14-2022 aPTT Coag (Bld) [Time] 43.3 s 24.1-36.2 [facility] PT Coag (PPP) [Time] 21.3 s 11.7-14.9 [facility] Laboratory - Hematology and Cell countsOrdered By: Neri Mitchell on 11-14-2022 Erythrocyte distribution width (RBC) [Entitic vol] 44.7 fL 35.1-43.9 [facility] [place] Erythrocyte distribution width (RBC) [Ratio] 13.0 % 11.6-14.6 [facility] Immature granulocytes/100 WBC (Bld) 0.300 % 0.0-0.9 [facility] Comment on above: IG% - Immature Granu locytes (promyelocytes, myelocytes and metamyelocytes) > 1% indicates that a LEFT SHIFT is Present. MCH (RBC) [Entitic mass] 29.9 pg 27.0-32.0 [facility] Nucleated RBC/100 WBC (Bld) [Ratio] 0 % 0-5 [facility] MCHC Auto (RBC) [Mass/Vol]Or dered By: Neri Mitchell on 11-14-2022 MCHC (RBC) [Mass/Vol] 31.9 g/dL 32-36 [facility] No Panel InformationOrdered By: Neri Mitchell on 11-14-2022 Estimated Creatinine Clearance Calc 28.76 ml/min [facility] Estimated GFR (MDRD) Amer 58 mL/min >60 [facility] Comment on above: GFR Calc Estimated GFR (MDRD) Non-Af Amer 48 mL/min >60 [facility] Comment on above: Non- GFR Calc Troponin I High Sensitivity 10 pg/mL 3.0-54.0 [facility] Comment on above: Please Note: New Evon t Units and Gender Specific Reference Ranges. For more information see Policy Stat Procedure [place] High Sensitivity Troponin (TNIH) and attachments. Platelets bldOrdered By: Prasad Mitchell on 11-14-2022 Platelets (Bld) [#/Vol] 313 10*3/uL 150-450 [facility] Serum or plasma calcium viktoria urement (mass/volume)Ordered By: Neri Mitchell on 11-14-2022 Calcium [Mass/Vol] 9.0 mg/dL 8.5-10.1 [facility] [place] Serum or plasma creatinine m easurement (mass/volume)Ordered By: Neri Mitchell on 11-14-2022 Creatinine [Mass/Vol] 1.14 mg/dL 0.55-1.02 [facility] Comment on above: The validity of the calculated GFR & GFRAA in patients over 70 years has not been determined. Clinical correlation is essential. Serum or plasma urea nitroge n measurement (mass/volume)Ordered By: Neri Mitchell on 11-14-2022 Urea nitrogen [Mass/Vol] 14 mg/dL 7-18 [facility] Thin prep Papanicolaou smear with manual screeningOrdered By: Neri Mitchell on 11-14-2022 Thin prep Papanicolaou smear with manual screening 6 5-15 [facility] INR in Blood by Coagulation assayOrdered By: Dr. Juarez on 09-18-2022 INR Coag (Bld) [Relative time] 1.8 {INR} [facility] Laboratory - CoagulationOrde red By: Dr. Juarez on 09-18-2022 PT Coag (PPP) [Time] 20.9 s 11.7-14.9 [facility] No Panel InformationOrdered By: Anant Juarez on 09-18-2022 Free Lambda Light Chains, Quant 15.7 mg/L 5.7-26.3 [facility] Whole Blood Vitamin B1 Level 111.8 nmol/L 66.5-200.0 [facility] Comment on above: Performed at: - [address] [id number] Director: Master Vee PhD, Phone: [phone] at: - [facility] [address] [id number] Director: Brandon Wells MD, Phone: [phone] Serum immunoglobulin kappa l ight chains/immunoglobulin lambda light chains mass ratioOrdered By: Anant Juarez on 09-18-2022 Immunoglobulin light chains.kappa/Immunoglobul in light chains.lambda (S) [Mass ratio] 1.74 0.26-1.65 [facility] Serum or plasma folate measu rement (mass/volume)Ordered By: Dr. Juarez on 09-18-2022 Folate [Mass/Vol] 51.90 ng/mL 3.1-55.4 [facility] [place] Comment on above: Slight Hemolysis, Re sult may be falsely increased. Serum or plasma immunoglobul in kappa light chains measurement (mass/volume)Ordered By: Anant Juarez on 09-18-2022 Immunoglobulin light chains.kappa [Mass/Vol] 27.3 mg/L 3.3-19.4 [facility] Culture, urineOrdered By: Slim Doran on 09-17-2022 Bacteria identified Cx Nom (U) Streptococcus agalactiae (B) [facility] INR in Blood by Coagulation assayOrdered By: Dr. Doran on 09-13-2022 INR Coag (Bld) [Relative time] 1.5 {INR} [facility] Laboratory - CoagulationOrde red By: Dr. Doran on 09-13-2022 PT Coag (PPP) [Time] 18.1 s 11.7-14.9 [facility] Absolute lymphocyte countOrd ered By: Dr. Barcenas on 09-08-2022 Lymphocytes Auto (Unsp spec) [#/Vol] 2.60 10*3/uL 0.83-4.51 [facility] Basophil percentageOrdered B y: Dr. Barcenas on 09-08-2022 Basophil percentage 0 SEEN /hpf 0-5 [facility] Basophils/100 WBC (Bld) 0.4 % 0-1 [facility] Bilirubin [Mass/Vol] 0.30 mg/dL 0.20-1.00 [facility] Comment on above: For patients on eltr ombopag therapy, use of Dimension [place] TBIL is not recommended. Chloride [Moles/Vol] 103 mmol/L 98-107 [facility] Eosinophils/100 WBC (Bld) 2.3 % 0-5 [facility] Glucose [Mass/Vol] 78 mg/dL 74-106 [facility] [place] Neutrophils (Bld) [#/Vol] 5.2 10*3/uL 2.0-7.7 [facility] Neutrophils/100 WBC (Bld) 57.4 % 47-70 [facility] Potassium [Moles/Vol] 3.8 mmol/L 3.5-5.1 [facility] Protein [Mass/Vol] 6.9 g/dL 6.4-8.2 [facility] [place] Sodium [Moles/Vol] 139 mmol/L 136-145 [facility] [place] WBC (Bld) [#/Vol] 9.1 10*3/uL 4.4-11.0 [facility] [place] Bilirubin Test strip Ql (U)O rdered By: Dr. Barcenas on 09-08-2022 Bilirubin Ql (U) Negative Negative [facility] Blood erythrocytes count (nu mber/volume)Ordered By: Dr. Barcenas on 09-08-2022 RBC (Bld) [#/Vol] 4.48 10*6/uL 4.2-5.4 [facility] Blood hemoglobin measurement (mass/volume)Ordered By: Dr. Barcenas on 09-08-2022 Hemoglobin (Bld) [Mass/Vol] 13.4 g/dL 12.0-15.0 [facility] Blood lymphocytes/100 leukoc ytesOrdered By: Dr. Barcenas on 09-08-2022 Lymphocytes/100 WBC (Bld) 28.5 % 19-41 [facility] Blood monocytes/100 leukocyt esOrdered By: Dr. Barcenas on 09-08-2022 Monocytes/100 WBC (Bld) 11.1 % 0-10 [facility] Blood platelet mean volumeOr dered By: Dr. Barcenas on 09-08-2022 Platelet mean volume (Bld) [Entitic vol] 10.7 fL 6.2-12.0 [facility] Determination of erythrocyte mean corpuscular volume (MCV)Ordered By: Dr. Barcenas on 09-08-2022 MCV (RBC) [Entitic vol] 92.4 fL 81-99 [facility] Hematocrit Auto (Bld) [Volum e fraction]Ordered By: Dr. Barcenas on 09-08-2022 Hematocrit (Bld) [Volume fraction] 41.4 % 37-47 [facility] INR in Blood by Coagulation assayOrdered By: Dr. Barcenas on 09-08-2022 INR Coag (Bld) [Relative time] 1.0 {INR} [facility] Ketones Test strip Ql (U)Ord ered By: Dr. Barcenas on 09-08-2022 Ketones Ql (U) Negative Negative [facility] Laboratory - Chemistry and C hemistry - challengeOrdered By: Dr. Barcenas on 09-08-2022 ALP [Catalytic activity/Vol] 71 U/L 45-117 [facility] ALT [Catalytic activity/Vol] 9 U/L 13-56 [facility] CO2 [Moles/Vol] 30.0 mmol/L 21.0-32.0 [facility] Globulin (S) [Mass/Vol] 3.7 g/dL 2.2-4.2 [facility] Urea nitrogen/Creatinine [Mass ratio] 17.1 mg/mg 10-20 [facility] Laboratory - CoagulationOrde red By: Dr. Barcenas on 09-08-2022 PT Coag (PPP) [Time] 13.6 s 11.7-14.9 [facility] Laboratory - Hematology and Cell countsOrdered By: Dr. Barcenas on 09-08-2022 Erythrocyte distribution width (RBC) [Entitic vol] 44.8 fL 35.1-43.9 [facility] [place] Erythrocyte distribution width (RBC) [Ratio] 13.2 % 11.6-14.6 [facility] Immature granulocytes/100 WBC (Bld) 0.300 % 0.0-0.9 [facility] Comment on above: IG% - Immature Granu locytes (promyelocytes, myelocytes and metamyelocytes) > 1% indicates that a LEFT SHIFT is Present. MCH (RBC) [Entitic mass] 29.9 pg 27.0-32.0 [facility] Nucleated RBC/100 WBC (Bld) [Ratio] 0 % 0-5 [facility] MCHC Auto (RBC) [Mass/Vol]Or dered By: Dr. Barcenas on 09-08-2022 MCHC (RBC) [Mass/Vol] 32.4 g/dL 32-36 [facility] Mucus LM Ql (Urine sed)Order ed By: Dr. Barcenas on 09-08-2022 Mucus Ql (Urine sed) 0 SEEN /hpf [facility] Nitrite Test strip Ql (U)Ord ered By: Dr. Barcenas on 09-08-2022 Nitrite Ql (U) Negative Negative [facility] No Panel InformationOrdered By: Dr. Barcenas on 09-08-2022 Estimated Creatinine Clearance Calc 31.23 ml/min [facility] Estimated GFR (MDRD) Amer 64 mL/min >60 [facility] Comment on above: GFR Calc Estimated GFR (MDRD) Non-Af Amer 53 mL/min >60 [facility] Comment on above: Non- GFR Calc Troponin I High Sensitivity 86 pg/mL 3.0-54.0 [facility] Comment on above: Please Note: New Evon t Units and Gender Specific Reference Ranges. For more information see Policy Stat Procedure [place] High Sensitivity Troponin (TNIH) and attachments. Platelets bldOrdered By: Dr. Barcenas on 09-08-2022 Platelets (Bld) [#/Vol] 294 10*3/uL 150-450 [facility] Protein Test strip Ql (U)Ord ered By: Dr. Barcenas on 09-08-2022 Protein Ql (U) Negative Negative [facility] Serum or plasma albumin viktoria urement (mass/volume)Ordered By: Dr. Barcenas on 09-08-2022 Albumin [Mass/Vol] 3.2 g/dL 3.2-5.0 [facility] [place] Serum or plasma albumin/glob ulin mass ratioOrdered By: Dr. Barcenas on 09-08-2022 Albumin/Globulin [Mass ratio] 0.9 {ratio} 0.9-2.4 [facility] Serum or plasma calcium viktoria urement (mass/volume)Ordered By: Dr. Barcenas on 09-08-2022 Calcium [Mass/Vol] 8.8 mg/dL 8.5-10.1 [facility] [place] Serum or plasma creatinine m easurement (mass/volume)Ordered By: Dr. Barcenas on 09-08-2022 Creatinine [Mass/Vol] 1.05 mg/dL 0.55-1.02 [facility] Comment on above: The validity of the calculated GFR & GFRAA in patients over 70 years has not been determined. Clinical correlation is essential. Serum or plasma urea nitroge n measurement (mass/volume)Ordered By: Dr. Barcenas on 09-08-2022 Urea nitrogen [Mass/Vol] 18 mg/dL 7-18 [facility] Squamous epithelial cells de tection in urine sediment by light microscopyOrdered By: Dr. Barcenas on 09-08-2022 Epithelial cells.squamous LM Ql (Urine sed) 0-5 SEEN /hpf 5-10 [facility] Thin prep Papanicolaou smear with manual screeningOrdered By: Dr. Barcenas on 09-08-2022 Thin prep Papanicolaou smear with manual screening 9 U/L 15-37 [facility] Thin prep Papanicolaou smear with manual screening 6 5-15 [facility] Urine blood detectionOrdered By: Dr. Barcenas on 09-08-2022 RBC Ql (U) Negative Negative [facility] RBC Ql (U) 0 SEEN /hpf 0-5 [facility] Urine clarityOrdered By: Dr. Barcenas on 09-08-2022 Clarity (U) Clear Clear [facility] Urine color determinationOrd ered By: Dr. Barcenas on 09-08-2022 Color (U) Yellow Yellow [facility] Urine glucose detectionOrder ed By: Dr. Barcenas on 09-08-2022 Glucose Ql (U) Normal mg/dl Normal [facility] Urine leukocyte esterase det ection by dipstickOrdered By: Dr. Barcenas on 09-08-2022 Leukocyte esterase Test strip Ql (U) Negative Negative [facility] Urine pHOrdered By: Dr. Moody leal on 09-08-2022 pH (U) 6.5 [pH] 5.0 - 8.0 [facility] Urine sediment bacteria coun t by microscopy (number/high power field)Ordered By: Dr. Barcenas on 09-08-2022 Bacteria LM.HPF (Urine sed) [#/Area] 0 /[HPF] None Seen [facility] Urine specific gravity measu rementOrdered By: Dr. Barcenas on 09-08-2022 Specific gravity (U) [Rel density] 1.010 1.002-1.030 [facility] Urobilinogen Auto test strip Ql (U)Ordered By: Dr. Barcenas on 09-08-2022 Urobilinogen Ql (U) Normal mg/dl Normal [facility] Absolute lymphocyte countOrd ered By: Dr. Doran on 09-05-2022 Lymphocytes Auto (Unsp spec) [#/Vol] 1.27 10*3/uL 0.83-4.51 [facility] Basophil percentageOrdered B y: Dr. Doran on 09-05-2022 Basophils/100 WBC (Bld) 0.4 % 0-1 [facility] Chloride [Moles/Vol] 106 mmol/L 98-107 [facility] Eosinophils/100 WBC (Bld) 1.0 % 0-5 [facility] Glucose [Mass/Vol] 202 mg/dL 74-106 [facility] [place] Comment on above: Glucose result great er than or equal to 200 mg/dLsuggests DIABETES MELLITUS per A.D.A. criteria. Neutrophils (Bld) [#/Vol] 8.3 10*3/uL 2.0-7.7 [facility] Neutrophils/100 WBC (Bld) 79.7 % 47-70 [facility] Potassium [Moles/Vol] 3.7 mmol/L 3.5-5.1 [facility] Sodium [Moles/Vol] 139 mmol/L 136-145 [facility] [place] WBC (Bld) [#/Vol] 10.4 10*3/uL 4.4-11.0 [facility] Blood erythrocytes count (nu mber/volume)Ordered By: Dr. Doran on 09-05-2022 RBC (Bld) [#/Vol] 4.72 10*6/uL 4.2-5.4 [facility] Blood hemoglobin measurement (mass/volume)Ordered By: Dr. Doran on 09-05-2022 Hemoglobin (Bld) [Mass/Vol] 14.1 g/dL 12.0-15.0 [facility] Blood lymphocytes/100 leukoc ytesOrdered By: Dr. Doran on 09-05-2022 Lymphocytes/100 WBC (Bld) 12.3 % 19-41 [facility] Blood monocytes/100 leukocyt esOrdered By: Dr. Doran on 09-05-2022 Monocytes/100 WBC (Bld) 6.3 % 0-10 [facility] Blood platelet mean volumeOr dered By: Dr. Doran on 09-05-2022 Platelet mean volume (Bld) [Entitic vol] 11.2 fL 6.2-12.0 [facility] Determination of erythrocyte mean corpuscular volume (MCV)Ordered By: Dr. Doran on 09-05-2022 MCV (RBC) [Entitic vol] 93.9 fL 81-99 [facility] Hematocrit Auto (Bld) [Volum e fraction]Ordered By: Dr. Doran on 09-05-2022 Hematocrit (Bld) [Volume fraction] 44.3 % 37-47 [facility] INR in Blood by Coagulation assayOrdered By: Dr. Doran on 09-05-2022 INR Coag (Bld) [Relative time] 1.1 {INR} [facility] Laboratory - Chemistry and C hemistry - challengeOrdered By: Dr. Doran on 09-05-2022 CO2 [Moles/Vol] 24.0 mmol/L 21.0-32.0 [facility] Urea nitrogen/Creatinine [Mass ratio] 18.3 mg/mg 10-20 [facility] Laboratory - CoagulationOrde red By: Dr. Doran on 09-05-2022 PT Coag (PPP) [Time] 13.8 s 11.7-14.9 [facility] Laboratory - Hematology and Cell countsOrdered By: Dr. Doran on 09-05-2022 Erythrocyte distribution width (RBC) [Entitic vol] 45.5 fL 35.1-43.9 [facility] [place] Erythrocyte distribution width (RBC) [Ratio] 13.2 % 11.6-14.6 [facility] Immature granulocytes/100 WBC (Bld) 0.300 % 0.0-0.9 [facility] Comment on above: IG% - Immature Granu locytes (promyelocytes, myelocytes and metamyelocytes) > 1% indicates that a LEFT SHIFT is Present. MCH (RBC) [Entitic mass] 29.9 pg 27.0-32.0 [facility] Nucleated RBC/100 WBC (Bld) [Ratio] 0 % 0-5 [facility] MCHC Auto (RBC) [Mass/Vol]Or dered By: Dr. Doran on 09-05-2022 MCHC (RBC) [Mass/Vol] 31.8 g/dL 32-36 [facility] No Panel InformationOrdered By: Dr. Doran on 09-05-2022 Estimated GFR (MDRD) Amer 61 mL/min >60 [facility] Comment on above: GFR Calc Estimated GFR (MDRD) Non-Af Amer 50 mL/min >60 [facility] Comment on above: Non- GFR Calc Thyroid Stimulating Hormone (TSH) 2.84 uIU/mL 0.358-3.74 [facility] Platelets bldOrdered By: Dr. Doran on 09-05-2022 Platelets (Bld) [#/Vol] 311 10*3/uL 150-450 [facility] Serum or plasma calcium viktoria urement (mass/volume)Ordered By: Dr. Doran on 09-05-2022 Calcium [Mass/Vol] 8.8 mg/dL 8.5-10.1 [facility] [place] Serum or plasma creatinine m easurement (mass/volume)Ordered By: Dr. Doran on 09-05-2022 Creatinine [Mass/Vol] 1.09 mg/dL 0.55-1.02 [facility] Comment on above: The validity of the calculated GFR & GFRAA in patients over 70 years has not been determined. Clinical correlation is essential. Serum or plasma urea nitroge n measurement (mass/volume)Ordered By: Dr. Doran on 09-05-2022 Urea nitrogen [Mass/Vol] 20 mg/dL 7-18 [facility] Thin prep Papanicolaou smear with manual screeningOrdered By: Dr. Doran on 09-05-2022 Thin prep Papanicolaou smear with manual screening 9 5-15 [facility] Absolute lymphocyte countOrd ered By: Dr. oDran on 08-08-2022 Lymphocytes Auto (Unsp spec) [#/Vol] 1.97 10*3/uL 0.83-4.51 [facility] Basophil percentageOrdered B y: Dr. Doran on 08-08-2022 Basophils/100 WBC (Bld) 0.5 % 0-1 [facility] Chloride [Moles/Vol] 105 mmol/L 98-107 [facility] Eosin[facility]/100 WBC (Bld) 3.2 % 0-5 [facility] Glucose [Mass/Vol] 147 mg/dL 74-106 [facility] [place] Comment on above: Fasting Glucose resu lt greater than or equal to 126 mg/dL suggests DIABETES MELLITUS per A.D.A. criteria. Neutrophils (Bld) [#/Vol] 4.6 10*3/uL 2.0-7.7 [facility] Neutrophils/100 WBC (Bld) 60.9 % 47-70 [facility] Potassium [Moles/Vol] 4.9 mmol/L 3.5-5.1 [facility] Sodium [Moles/Vol] 140 mmol/L 136-145 [facility] [place] WBC (Bld) [#/Vol] 7.5 10*3/uL 4.4-11.0 [facility] [place] Blood erythrocytes count (nu mber/volume)Ordered By: Dr. Doran on 08-08-2022 RBC (Bld) [#/Vol] 4.73 10*6/uL 4.2-5.4 [facility] Blood hemoglobin measurement (mass/volume)Ordered By: Dr. Doran on 08-08-2022 Hemoglobin (Bld) [Mass/Vol] 14.0 g/dL 12.0-15.0 [facility] Blood lymphocytes/100 leukoc ytesOrdered By: Dr. Doran on 08-08-2022 Lymphocytes/100 WBC (Bld) 26.2 % 19-41 [facility] Blood monocytes/100 leukocyt esOrdered By: Dr. Doran on 08-08-2022 Monocytes/100 WBC (Bld) 8.8 % 0-10 [facility] Blood platelet mean volumeOr dered By: Dr. Doran on 08-08-2022 Platelet mean volume (Bld) [Entitic vol] 10.9 fL 6.2-12.0 [facility] Determination of erythrocyte mean corpuscular volume (MCV)Ordered By: Dr. Doran on 08-08-2022 MCV (RBC) [Entitic vol] 94.1 fL 81-99 [facility] Hematocrit Auto (Bld) [Volum e fraction]Ordered By: Dr. Doran on 08-08-2022 Hematocrit (Bld) [Volume fraction] 44.5 % 37-47 [facility] Laboratory - Chemistry and C hemistry - challengeOrdered By: Dr. Doran on 08-08-2022 CO2 [Moles/Vol] 29.0 mmol/L 21.0-32.0 [facility] Cobalamin (Vitamin B12) [Mass/Vol] 853 pg/mL 211-911 [facility] Urea nitrogen/Creatinine [Mass ratio] 18.3 mg/mg 10-20 [facility] Laboratory - Hematology and Cell countsOrdered By: Dr. Doran on 08-08-2022 Erythrocyte distribution width (RBC) [Entitic vol] 45.5 fL 35.1-43.9 [facility] [place] Erythrocyte distribution width (RBC) [Ratio] 13.2 % 11.6-14.6 [facility] Immature granulocytes/100 WBC (Bld) 0.400 % 0.0-0.9 [facility] Comment on above: IG% - Immature Granu locytes (promyelocytes, myelocytes and metamyelocytes) > 1% indicates that a LEFT SHIFT is Present. MCH (RBC) [Entitic mass] 29.6 pg 27.0-32.0 [facility] Nucleated RBC/100 WBC (Bld) [Ratio] 0 % 0-5 [facility] MCHC Auto (RBC) [Mass/Vol]Or dered By: Dr. Doran on 08-08-2022 MCHC (RBC) [Mass/Vol] 31.5 g/dL 32-36 [facility] No Panel InformationOrdered By: Dr. Doran on 08-08-2022 Estimated GFR (MDRD) Amer 57 mL/min >60 [facility] Comment on above: GFR Calc Estimated GFR (MDRD) Non-Af Amer 47 mL/min >60 [facility] Comment on above: Non- GFR Calc Vitamin D 25-Hydroxy 35.5 ng/mL [facility] Comment on above: Vitamin D 25(OH) Sta tus Range Deficiency <20 ng/mL (50nmol/L) Insufficiency 20 - 30 ng/mL (50 - 75 nmol/L) Sufficiency 30 - 100 ng/mL (75 - 250 nmol/L) Toxicity >100 ng/mL (>250 nmol/L) Platelets bldOrdered By: Dr. Doran on 08-08-2022 Platelets (Bld) [#/Vol] 365 10*3/uL 150-450 [facility] Serum or plasma calcium viktoria urement (mass/volume)Ordered By: Dr. Doran on 08-08-2022 Calcium [Mass/Vol] 9.2 mg/dL 8.5-10.1 [facility] [place] Serum or plasma creatinine m easurement (mass/volume)Ordered By: Dr. Doran on 08-08-2022 Creatinine [Mass/Vol] 1.15 mg/dL 0.55-1.02 [facility] Comment on above: The validity of the calculated GFR & GFRAA in patients over 70 years has not been determined. Clinical correlation is essential. Serum or plasma ferritin rich surement (mass/volume)Ordered By: Dr. Doran on 08-08-2022 Ferritin [Mass/Vol] 83 ng/mL 8-252 [facility] Serum or plasma urea nitroge n measurement (mass/volume)Ordered By: Dr. Doran on 08-08-2022 Urea nitrogen [Mass/Vol] 21 mg/dL 7-18 [facility] Thin prep Papanicolaou smear with manual screeningOrdered By: Dr. Doran on 08-08-2022 Thin prep Papanicolaou smear with manual screening 6 5-15 [facility] Absolute lymphocyte countOrd ered By: Dr. Doran on 06-26-2022 Lymphocytes Auto (Unsp spec) [#/Vol] 2.42 10*3/uL 0.83-4.51 [facility] Basophil percentageOrdered B y: Dr. Doran on 06-26-2022 Basophils/100 WBC (Bld) 0.5 % 0-1 [facility] Bilirubin [Mass/Vol] 0.40 mg/dL 0.20-1.00 [facility] Comment on above: For patients on eltr ombopag therapy, use of Dimension [place] TBIL is not recommended. Chloride [Moles/Vol] 106 mmol/L 98-107 [facility] Cholesterol [Mass/Vol] 163 mg/dL <200 [facility] Comment on above: <200 mg/dL Desirable 200-240 mg/dL Borderline >240 mg/dL High Risk Eosinophils/100 WBC (Bld) 4.2 % 0-5 [facility] [facility] Glucose [Mass/Vol] 142 mg/dL 74-106 [facility] [place] Comment on above: Fasting Glucose resu lt greater than or equal to 126 mg/dL suggests DIABETES MELLITUS per A.D.A. criteria. Neutrophils (Bld) [#/Vol] 3.9 10*3/uL 2.0-7.7 [facility] Neutrophils/100 WBC (Bld) 53.1 % 47-70 [facility] Potassium [Moles/Vol] 4.3 mmol/L 3.5-5.1 [facility] Protein [Mass/Vol] 6.9 g/dL 6.4-8.2 [facility] [place] Sodium [Moles/Vol] 139 mmol/L 136-145 [facility] [place] Triglyceride [Mass/Vol] 178 mg/dL <199 [facility] Comment on above: The drugs N-Acetylcy steine and Metamizole may falsely depress this assay.Serum Triglycerides Reference Interval Normal <150 mg/dL Borderline high 150 - 199 mg/dL High 200 - 499 mg/dL Very High > or = 500 mg/dL WBC (Bld) [#/Vol] 7.4 10*3/uL 4.4-11.0 [facility] [place] Blood erythrocytes count (nu mber/volume)Ordered By: Dr. Doran on 06-26-2022 RBC (Bld) [#/Vol] 4.51 10*6/uL 4.2-5.4 [facility] Blood hemoglobin measurement (mass/volume)Ordered By: Dr. Doran on 06-26-2022 Hemoglobin (Bld) [Mass/Vol] 13.5 g/dL 12.0-15.0 [facility] Blood lymphocytes/100 leukoc ytesOrdered By: Dr. Doran on 06-26-2022 Lymphocytes/100 WBC (Bld) 32.9 % 19-41 [facility] Blood monocytes/100 leukocyt esOrdered By: Dr. Doran on 06-26-2022 Monocytes/100 WBC (Bld) 9.0 % 0-10 [facility] Blood platelet mean volumeOr dered By: Dr. Doran on 06-26-2022 Platelet mean volume (Bld) [Entitic vol] 10.2 fL 6.2-12.0 [facility] Determination of erythrocyte mean corpuscular volume (MCV)Ordered By: Dr. Doran on 06-26-2022 MCV (RBC) [Entitic vol] 92.5 fL 81-99 [facility] Hematocrit Auto (Bld) [Volum e fraction]Ordered By: Dr. Doran on 06-26-2022 Hematocrit (Bld) [Volume fraction] 41.7 % 37-47 [facility] Laboratory - Chemistry and C hemistry - challengeOrdered By: Dr. Doran on 06-26-2022 ALP [Catalytic activity/Vol] 69 U/L 45-117 [facility] ALT [Catalytic activity/Vol] 13 U/L 13-56 [facility] CO2 [Moles/Vol] 29.0 mmol/L 21.0-32.0 [facility] Globulin (S) [Mass/Vol] 3.7 g/dL 2.2-4.2 [facility] Urea nitrogen/Creatinine [Mass ratio] 18.0 mg/mg 10-20 [facility] Laboratory - Hematology and Cell countsOrdered By: Dr. Doran on 06-26-2022 Erythrocyte distribution width (RBC) [Entitic vol] 43.9 fL 35.1-43.9 [facility] [place] Erythrocyte distribution width (RBC) [Ratio] 12.9 % 11.6-14.6 [facility] Immature granulocytes/100 WBC (Bld) 0.300 % 0.0-0.9 [facility] Comment on above: IG% - Immature Granu locytes (promyelocytes, myelocytes and metamyelocytes) > 1% indicates that a LEFT SHIFT is Present. MCH (RBC) [Entitic mass] 29.9 pg 27.0-32.0 [facility] Nucleated RBC/100 WBC (Bld) [Ratio] 0 % 0-5 [facility] MCHC Auto (RBC) [Mass/Vol]Or dered By: Dr. Doran on 06-26-2022 MCHC (RBC) [Mass/Vol] 32.4 g/dL 32-36 [facility] No Panel InformationOrdered By: Dr. Doran on 06-26-2022 Estimated GFR (MDRD) Amer 60 mL/min >60 [facility] Comment on above: GFR Calc Estimated GFR (MDRD) Non-Af Amer 49 mL/min >60 [facility] Comment on above: Non- GFR Calc Platelets bldOrdered By: Dr. Doran on 06-26-2022 Platelets (Bld) [#/Vol] 314 10*3/uL 150-450 [facility] Serum or plasma albumin viktoria urement (mass/volume)Ordered By: Dr. Doran on 06-26-2022 Albumin [Mass/Vol] 3.2 g/dL 3.2-5.0 [facility] [place] Serum or plasma albumin/glob ulin mass ratioOrdered By: Dr. Doran on 06-26-2022 Albumin/Globulin [Mass ratio] 0.9 {ratio} 0.9-2.4 [facility] Serum or plasma calcium viktoria urement (mass/volume)Ordered By: Dr. Doran on 06-26-2022 Calcium [Mass/Vol] 8.8 mg/dL 8.5-10.1 [facility] [place] Serum or plasma cholesterol in HDL measurement (mass/volume)Ordered By: Dr. Doran on 06-26-2022 Cholesterol in HDL [Mass/Vol] 47 mg/dL >40 [facility] Comment on above: The drugs N-Acetylcy steine and Metamizole may falsely depress this assay. Reference Range HDL <40 mg/dL Low HDL Cholesterol HDL >or= 60 mg/dL High HDL Cholesterol Serum or plasma cholesterol in VLDL measurement (mass/volume)Ordered By: Dr. Doran on 06-26-2022 Cholesterol in VLDL [Mass/Vol] 36 mg/dL 5-40 [facility] Serum or plasma creatinine m easurement (mass/volume)Ordered By: Dr. Doran on 06-26-2022 Creatinine [Mass/Vol] 1.11 mg/dL 0.55-1.02 [facility] Comment on above: The validity of the calculated GFR & GFRAA in patients over 70 years has not been determined. Clinical correlation is essential. Serum or plasma low density lipoprotein (LDL) cholesterol measurement (mass/volume)Ordered By: Dr. Doran on 06-26-2022 Cholesterol in LDL [Mass/Vol] 80 mg/dL 0-130 [facility] Serum or plasma urea nitroge n measurement (mass/volume)Ordered By: Dr. Doran on 06-26-2022 Urea nitrogen [Mass/Vol] 20 mg/dL 7-18 [facility] Thin prep Papanicolaou smear with manual screeningOrdered By: Dr. Doran on 06-26-2022 Thin prep Papanicolaou smear with manual screening 15 U/L 15-37 [facility] Thin prep Papanicolaou smear with manual screening 4 5-15 [facility] Absolute lymphocyte countOrd ered By: Reese Shankar on 02-11-2022 Lymphocytes Auto (Unsp spec) [#/Vol] 1.50 10*3/uL 0.83-4.51 [facility] Basophil percentageOrdered B y: Reese Shankar on 02-11-2022 Basophils/100 WBC (Bld) 0.4 % 0-1 [facility] Chloride [Moles/Vol] 102 mmol/L 98-107 [facility] Eosinophils/100 WBC (Bld) 1.7 % 0-5 [facility] Glucose [Mass/Vol] 153 mg/dL 74-106 [facility] [place] Comment on above: Fasting Glucose resu lt greater than or equal to 126 mg/dL suggests DIABETES MELLITUS per A.D.A. criteria. Neutrophils (Bld) [#/Vol] 10.0 10*3/uL 2.0-7.7 [facility] Neutrophils/100 WBC (Bld) 79.1 % 47-70 [facility] Potassium [Moles/Vol] 3.9 mmol/L 3.5-5.1 [facility] Sodium [Moles/Vol] 138 mmol/L 136-145 [facility] WBC (Bld) [#/Vol] 12.7 10*3/uL 4.4-11.0 [facility] Blood erythrocytes count (nu mber/volume)Ordered By: Reese Shankar on 02-11-2022 RBC (Bld) [#/Vol] 4.24 10*6/uL 4.2-5.4 [facility] Blood hemoglobin measurement (mass/volume)Ordered By: Reese Shankar on 02-11-2022 Hemoglobin (Bld) [Mass/Vol] 12.8 g/dL 12.0-15.0 [facility] Blood lymphocytes/100 leukoc ytesOrdered By: Reese Shankar on 02-11-2022 Lymphocytes/100 WBC (Bld) 11.8 % 19-41 [facility] Blood monocytes/100 leukocyt esOrdered By: Reese Shankar on 02-11-2022 Monocytes/100 WBC (Bld) 6.7 % 0-10 [facility] Blood platelet mean volumeOr dered By: Reese Shankar on 02-11-2022 Platelet mean volume (Bld) [Entitic vol] 11.0 fL 6.2-12.0 [facility] Determination of erythrocyte mean corpuscular volume (MCV)Ordered By: Reese Shankar on 02-11-2022 MCV (RBC) [Entitic vol] 91.7 fL 81-99 [facility] Hematocrit Auto (Bld) [Volum e fraction]Ordered By: Reese Shankar on 02-11-2022 Hematocrit (Bld) [Volume fraction] 38.9 % 37-47 [facility] INR in Blood by Coagulation assayOrdered By: Reese Shankar on 02-11-2022 INR Coag (Bld) [Relative time] 2.7 {INR} [facility] Laboratory - Chemistry and C hemistry - challengeOrdered By: Reese Shankar on 02-11-2022 CO2 [Moles/Vol] 26.0 mmol/L 21.0-32.0 [facility] Magnesium [Mass/Vol] 2.2 mg/dL 1.6-2.6 [facility] Urea nitrogen/Creatinine [Mass ratio] 18.5 mg/mg 10-20 [facility] Laboratory - CoagulationOrde red By: Reese Shankar on 02-11-2022 PT Coag (PPP) [Time] 28.0 s 11.7-14.9 [facility] Laboratory - Hematology and Cell countsOrdered By: Reese Shankar on 02-11-2022 Erythrocyte distribution width (RBC) [Entitic vol] 43.5 fL 35.1-43.9 [facility] [place] Erythrocyte distribution width (RBC) [Ratio] 12.9 % 11.6-14.6 [facility] Immature granulocytes/100 WBC (Bld) 0.300 % 0.0-0.9 [facility] Comment on above: IG% - Immature Granu locytes (promyelocytes, myelocytes and metamyelocytes) > 1% indicates that a LEFT SHIFT is Present. MCH (RBC) [Entitic mass] 30.2 pg 27.0-32.0 [facility] Nucleated RBC/100 WBC (Bld) [Ratio] 0 % 0-5 [facility] MCHC Auto (RBC) [Mass/Vol]Or dered By: Reese Shankar on 02-11-2022 MCHC (RBC) [Mass/Vol] 32.9 g/dL 32-36 [facility] No Panel InformationOrdered By: Reese Shankar on 02-11-2022 Estimated Creatinine Clearance Calc 19.31 ml/min [facility] Estimated GFR (MDRD) Amer 36 mL/min >60 [facility] Comment on above: GFR Calc Estimated GFR (MDRD) Non-Af Amer 30 mL/min >60 [facility] Comment on above: Non- GFR Calc Troponin I High Sensitivity 13 pg/mL 3.0-54.0 [facility] Comment on above: Please Note: New Evon t Units and Gender Specific Reference Ranges. For more information see Policy Stat Procedure [place] High Sensitivity Troponin (TNIH) and attachments. Platelets bldOrdered By: Dontae Shankar on 02-11-2022 Platelets (Bld) [#/Vol] 286 10*3/uL 150-450 [facility] Serum or plasma calcium viktoria urement (mass/volume)Ordered By: Reese Shankar on 02-11-2022 Calcium [Mass/Vol] 9.1 mg/dL 8.5-10.1 [facility] [place] Serum or plasma creatinine m easurement (mass/volume)Ordered By: Reese Shankar on 02-11-2022 Creatinine [Mass/Vol] 1.73 mg/dL 0.55-1.02 [facility] Comment on above: The validity of the calculated GFR & GFRAA in patients over 70 years has not been determined. Clinical correlation is essential. Serum or plasma urea nitroge n measurement (mass/volume)Ordered By: Reese Shankar on 02-11-2022 Urea nitrogen [Mass/Vol] 32 mg/dL 7-18 [facility] Thin prep Papanicolaou smear with manual screeningOrdered By: Reese Shankar on 02-11-2022 Thin prep Papanicolaou smear with manual screening 10 5-15 [facility] CNPNon 10-14-2019 CNPN Telephone (AGCARDPOB ) EZRA GONZALEZ ([id number]) 1935 F Date Time Provider Department 10/14/19 [...] artery stent placement- 2006 [Z95*11/14/2015 Atherosclerosis of [place] coronary artery of na*11/14/2015 Asymptomatic cholelithiasis [K80.20] [...] Encounter Status:Closed by ELVER ACOSTA on 10/14/19 [facility] CNPTOUTREACHochastity 10-12-[facility] EZRA GONZALEZ ([id number]) 1935 F Date Time Provider Department 10/12/19 SWATHI CRUZ) [facility] During your visit today, we recorded the following information about you: Swathi Cruz LPN, LPN 10/12/2019 10:48 AM Signed ED Follow Up: Patient discharged from [facility] ED on 10/11/2019 for Fall, rib [...] Visit: Transition Of Care [4074] Cmt: ED [facility] 10/11/2019 (Pt. has new pcp) Reason [...] artery stent placement- 2006 [Z95*11/14/2015 Atherosclerosis of [place] coronary artery of na*11/14/2015 Asymptomatic cholelithiasis [K80.20] [...] Status:Closed by SWATHI CRUZ LPN on 10/12/19 [facility] OBSOLETEon 10-12-2019 OBSOLETE Refill ([facility]) EZRA GONZALEZ ([id number]) 1935 F Date Time Provider Department 10/12/19 JO PEREZ [facility] During your visit today, we recorded the following information about you: Anne Marie Britogers Reg 10/12/2019 7:50 AM Signed Pharmacy faxed requesting the following refill. Pending Prescriptions Disp Refills FUROSEMIDE 20 MG TABLET 90 tablet 0 Sig: TAKE ONE TABLET BY MOUTH EVERY DAY SHAHEEN: Yes Last refill: 01/21/2019 Patient last appointment: 09/22/2019 Patient next appointment: Visit date not found Patient Phone numbers: [phone] (home) Request is for script(s) to be [...] [J45.909] 11/14/2015 S/P coronary artery stent placement- 2007 [Z95*11/14/2015 Atherosclerosis of [place] coronary artery of na*11/14/2015 Asymptomatic cholelithiasis [K80.20] [...] Status:Closed by LYNN BENEDICT LPN on 11/11/19 [facility] PROGRESSon 10-12-2019 PROGRESS HNO ID: [id number] Author: Swathi Cruz LPN Service: ? Author Type: LICENSED NURSE Type: Progress Notes Filed: 10/12/2019 10:48 AM Note Text: ED Follow Up: Patient discharged from [facility] ED on 10/11/2019 for Fall, rib fracture Outreach # 1, Contact Made. Patient was called at this time. Patient verified by name and . Patient stated she has a new PCP Dr. Sada Doran who she will follow up with. Swathi Cruz LPN 10/12/2019 10:45 AM Normal [facility] CNPMari 10-06-2019 CNPN Telephone ([employer]) LISAEZRA ([id number]) 1935 F Date Time Provider Department 10/06/19 [...] Date: 12/30/16 +++Patient gets lab draw at [facility] in [place] [phone]+++ PT INR Date Value Ref Range Status [...] back instructions and verbalized understanding. Estefania Cevallos, PharmD Allergies As of Date: 10/06/2019 Noted [...] (HCC) [I48.91] Order(s):PROTHROMBIN TIME/PT [SQPT] Order #: [id number] Prescriptions as of 10/06/2019 Sig: METOPROLOL SUCCINATE [...] artery stent placement- 2006 [Z95*11/14/2015 Atherosclerosis of [place] coronary artery of na*11/14/2015 Asymptomatic cholelithiasis [K80.20] [...] Encounter Status:Closed by BHAKTI (PHARMACIST)ESTEFANIA on 10/06/19 [facility] Bao 09-22-2019 CNPN Telephone ([facility]) EZRA GONZALEZ ([id number]) 1935 F Date Time Provider Department 09/22/19 JO PEREZ [facility] During your visit today, we recorded the following information about you: Maryanne Gomez MA 09/22/2019 10:38 AM Signed Patient is aware that you are going to be leaving the practice. She states she recently moved down to [place] and wants to find a physician closer to her Is there anyone that you recommend Maryanne Gomez MA 09/22/2019 10:37 AM Jo Perez MD 09/22/2019 12:[address] barker at [place] [facility] Alicia Park LPN 09/22/2019 1:21 PM Signed [...] Fully Assessed Reason for Visit: Patient Question [4716] Cmt: Physicans in [place] area Prescriptions as of 09/22/2019 Sig: METOPROLOL [...] artery stent placement- 2006 [Z95*11/14/2015 Atherosclerosis of [place] coronary artery of na*11/14/2015 Asymptomatic cholelithiasis [K80.20] [...] Encounter Status:Closed by ALICIA PARK on 09/22/19 [facility]ido [facility] EZRA GONZALEZ ([id number]) 1935 F Date Time Provider Department 09/22/19 MARYANNE GOMEZ) [facility] During your visit today, we recorded the following information about you: Maryanne Gomez MA 09/22/2019 10:34 AM Signed HIGH RISK CHRONIC DISEASE MONITORING - [facility] Provider Action/FYI: Patient doing well Contact made with patient: Yes Hi my name is Maryanne Gomez MA and I am calling from the [facility] on behalf of your PCP. I'm calling [...] like to speak with a social work team facilitator to help give you support for any [...] artery stent placement- 2006 [Z95*11/14/2015 Atherosclerosis of [place] coronary artery of na*11/14/2015 Asymptomatic cholelithiasis [K80.20] [...] Encounter Status:Closed by MARYANNE GOMEZ on 09/22/19 Normal [facility] PROGRESSon 09-22-2019 PROGRESS HNO ID: [id number] Author: Maryanne Perea) Miguel Service: ? Author Type: Anti Air Warfare Operations Officer Type: Progress Notes Filed: 09/22/2019 10:34 AM Note Text: HIGH RISK CHRONIC DISEASE MONITORING - [facility] Provider Action/FYI: Patient doing well Contact made with patient: Yes Hi my name is Maryanne Gomez MA and I am calling from the [facility] on behalf of your PCP. I'm calling [...] like to speak with a social work team facilitator to help give you support for any [...] Outreach.) Maryanne Gomez MA 09/22/2019 10:33 AM [facility] SUZITOUTREACHochastity 09-21-2019 [facility] ([facility]) EZRA GONZALEZ ([id number]) 1935 F Date Time Provider Department 09/21/19 JO PEREZ [facility] During your visit today, we recorded the following information about you: Alicia Park LPN 09/21/2019 10:43 AM Signed HIGH RISK CHRONIC DISEASE MONITORING - [facility] Provider Action/FYI: Contact made with patient: No - Left 1st message - Hi my name is Alicia Park LPN and I am calling from the [facility] on behalf of your PCP, Jo Perez [...] artery stent placement- 2006 [Z95*11/14/2015 Atherosclerosis of [place] coronary artery of na*11/14/2015 Asymptomatic cholelithiasis [K80.20] [...] Encounter Status:Closed by ALICIA PARK on 09/21/19 [facility] PROGRESSon 09-21-2019 PROGRESS HNO ID: [id number] Author: Alicia Park Service: ? Author Type: LICENSED NURSE Type: Progress Notes Filed: 09/21/2019 10:43 AM Note Text: HIGH RISK CHRONIC DISEASE MONITORING - [facility] Provider Action/FYI: Contact made with patient: No - Left 1st message - Hi my name is Alicia Park LPN and I am calling from the [facility] on behalf of your PCP, Jo Perez [...] Pt Outreach. End outreach.) Outreach ended Normal [facility] CNPNon 09-02-2019 CNPN Telephone ([facility]) EZRA GONZALEZ ([id number]) 1935 F Date Time Provider Department 09/02/19 [...] Date: 12/30/16 +++[email or web address] [place] [phone]+++ PT INR Date Value Ref Range Status [...] Patient will have next INR drawn at [facility] in [place] next month. Order placed. Estefania Cevallos, JpD Allergies As of Date: 09/02/2019 Noted Allergy [...] (HCC) [I48.91] Order(s):PROTHROMBIN TIME/PT [SQPT] Order #: [id number] PROTHROMBIN TIME/PT [SQPT] Order #: [id number] STANDING Prescriptions as of 09/02/2019 Sig: METOPROLOL [...] artery stent placement- 2006 [Z95*11/14/2015 Atherosclerosis of [place] coronary artery of na*11/14/2015 Asymptomatic cholelithiasis [K80.20] [...] Encounter Status:Closed by BHAKTI (PHARMACIST)ESTEFANIA on 09/03/19 [facility] CNPTOUTREACHon 08-12-[address] [facility] Patient Outreach ([facility]) EZRA GONZALEZ ([id number]) 1935 F Date Time Provider Department 08/12/19 MARYANNE GOMEZ) [facility] During your visit today, we recorded the following information about you: Maryanne Gomez MA 08/12/2019 9:39 AM Signed HIGH RISK CHRONIC DISEASE MONITORING - [facility] Provider Action/FYI: Left 2nd message, will add patient to schedule for a month Contact made with patient: No, Left 2nd message - Hi my name is Maryanne Gomez MA and I am calling from the [facility] on behalf of your PCP, Jo Perez [...] artery stent placement- 2006 [Z95*11/14/2015 Atherosclerosis of [place] coronary artery of na*11/14/2015 Asymptomatic cholelithiasis [K80.20] [...] Encounter Status:Closed by MARYANNE GOMEZ on 08/12/19 [facility] PROGRESSon 08-12-2019 PROGRESS HNO ID: [id number] Author: Maryanne Gomez Service: ? Author Type: Anti Air Warfare Operations Officer Type: Progress Notes Filed: 08/12/2019 9:39 AM Note Text: HIGH RISK CHRONIC DISEASE MONITORING - [facility] Provider Action/FYI: Left 2nd message, will add patient to schedule for a month Contact made with patient: No, Left 2nd message - Hi my name is Maryanne Gomez MA and I am calling from the [facility] on behalf of your PCP, Jo Perez [...] ended Maryanne Gomez MA 08/12/2019 9:38 AM [facility] CNPTOUTREACHochastity [facility]-11-[facility] LISAEZRA ([id number]) 1935 F Date Time Provider Department 08/11/19 MARYANNE GOMEZ) [facility] During your visit today, we recorded the following information about you: Maryanne oGmez MA 08/11/2019 10:02 AM Signed HIGH RISK CHRONIC DISEASE MONITORING - [facility] Provider Action/FYI: Left message, will add to schedule for tomorrow Contact made with patient: No - Left 1st message - Hi my name is Maryanne Gomez MA and I am calling from the [facility] on behalf of your PCP, Jo Perez [...] artery stent placement- 2006 [Z95*11/14/2015 Atherosclerosis of [place] coronary artery of na*11/14/2015 Asymptomatic cholelithiasis [K80.20] [...] Encounter Status:Closed by MARYANNE GOMEZ on 08/11/19 [facility] PROGRESSon 08-11-2019 PROGRESS HNO ID: [id number] Author: Maryanne Gomez Service: ? Author Type: Anti Air Warfare Operations Officer Type: Progress Notes Filed: 08/11/2019 10:02 AM Note Text: HIGH RISK CHRONIC DISEASE MONITORING - [facility] Provider Action/FYI: Left message, will add to schedule for tomorrow Contact made with patient: No - Left 1st message - Hi my name is Maryanne Gomez MA and I am calling from the [facility] on behalf of your PCP, Jo Perez [...] ended Maryanne Gomez MA 08/11/2019 10:01 AM [facility] OBSOLETEon 08-05-2019 OBSOLETE Refill (AGCARDPOB) EZRA GONZALEZ ([id number]) 1935 F Date Time Provider Department 08/05/19 [...] Prescription(s) as above. Please process accordingly. Lynette (Efficiency Analyst) Sharad Allergies As of Date: 08/05/2019 Noted Allergy [...] artery stent placement- 2006 [Z95*11/14/2015 Atherosclerosis of [place] coronary artery of na*11/14/2015 Asymptomatic cholelithiasis [K80.20] [...] Encounter Status:Closed by LYNETTE OROURKE on 08/05/19 [facility] CNPTOUTREACHochastity 08-04-2019 CNPTOUTREACH Patient Outreach ([facility]) EZRA GONZALEZ ([id number]) 1935 F Date Time Provider Department 08/04/19 MARYANNE GOMEZ) [facility] During your visit today, we recorded the following information about you: Maryanne REGI Gomez 08/04/2019 11:03 AM Signed HIGH RISK CHRONIC DISEASE MONITORING - [facility] Provider Action/FYI: Patient has no questions or concerns at this time Contact made with patient: Yes Hi my name is Maryanne REGI Gomez and I am calling from the [facility] on behalf of your PCP. I'm calling [...] like to speak with a social work team facilitator to help give you support for any [...] artery stent placement- 2006 [Z95*11/14/2015 Atherosclerosis of [place] coronary artery of na*11/14/2015 Asymptomatic cholelithiasis [K80.20] [...] Encounter Status:Closed by MARYANNE GOMEZ on 08/04/19 Normal [facility] PROGRESSon 08-04-2019 PROGRESS HNO ID: [id number] Author: Maryanne Gomez Service: ? Author Type: Anti Air Warfare Operations Officer Type: Progress Notes Filed: 08/04/2019 11:03 AM Note Text: HIGH RISK CHRONIC DISEASE MONITORING - [facility] Provider Action/FYI: Patient has no questions or concerns at this time Contact made with patient: Yes Hi my name is Maryanne Gomez MA and I am calling from the [facility] on behalf of your PCP. I'm calling [...] like to speak with a social work team facilitator to help give you support for any [...] Maryanne Gomez MA 08/04/2019 11:03 AM Normal [facility] OBSOLETEon 08-03-2019 OBSOLETE Refill (AGCARDPOB) EZRA GONZALEZ ([id number]) 1935 F Date Time Provider Department 08/03/19 MICHAEL LUO During your visit today, we recorded the [...] artery stent placement- 2006 [Z95*11/14/2015 Atherosclerosis of [place] coronary artery of na*11/14/2015 Asymptomatic cholelithiasis [K80.20] [...] Status:Closed by KATYA WELLS CNP on 08/03/19 [facility] SUZITOLOUEAJourdan 07-28-2019 [facility]) EZRA GONZALEZ ([id number]) 1935 F Date Time Provider Department 07/28/19 MARYANNE GOMEZ) [facility] During your visit today, we recorded the following information about you: Maryanne Gomez MA 07/28/2019 3:18 PM Signed HIGH RISK CHRONIC DISEASE MONITORING - [facility] Provider Action/FYI: Patient wants to know [...] MA and I am calling from the [facility] on behalf of your PCP. I'm calling [...] like to speak with a social work team facilitator to help give you support for any [...] Please report her afib episode to her clinic business manager (you can just route this chart to [...] use of insulin (HCC) [E11.9] Order(s):HGB A1C [BCBIH9A] Order #: [id number] FUTURE LIPID PANEL BASIC [SQLIPB] Order #: [id number] FUTURE COMP METABOLIC PANEL [SQCMP] Order #: [id number] FUTURE ALBUMIN QUANT 24H UR [SQUALBQ] Order #: [id number] FUTURE Prescriptions as of 07/28/2019 Sig: SIMVASTATIN [...] artery stent placement- 2006 [Z95*11/14/2015 Atherosclerosis of [place] coronary artery of na*11/14/2015 Asymptomatic cholelithiasis [K80.20] [...] Encounter Status:Closed by JO PEREZ on 07/28/19 [facility] OBSOLETEon 07-28-2019 OBSOLETE Refill (AGCARDHWG) EZRA GONZALEZ ([id number]) 1935 F Date Time Provider Department 07/28/19 [...] artery stent placement- 2006 [Z95*11/14/2015 Atherosclerosis of [place] coronary artery of na*11/14/2015 Asymptomatic cholelithiasis [K80.20] [...] Status:Closed by ARCELIA LOCKETT CNP on 07/28/19 [facility] PROGRESSon 07-28-2019 PROGRESS HNO ID: [id number] Author: Maryanne Gomez Service: ? Author Type: Anti Air Warfare Operations Officer Type: Progress Notes Filed: 07/28/2019 3:18 PM [...] necessary. Maryanne Gomez MA 07/28/2019 3:05 PM [facility] PROGRESS HNO ID: [id number] Author: Jo Perez Service: ? Author Type: Physician Type: Progress Notes Filed: 07/28/2019 3:18 PM Note Text: Please report her afib episode to her clinic business manager (you can just route this chart to [...] get labs done prior to her visit Normal [facility] PROGRESS HNO ID: [id number] Author: Maryanne Gomez Service: ? Author Type: Anti Air Warfare Operations Officer Type: Progress Notes Filed: 07/28/2019 3:18 PM Note Text: HIGH RISK CHRONIC DISEASE MONITORING - [facility] Provider Action/FYI: Patient wants to know [...] MA and I am calling from the [facility] on behalf of your PCP. I'm calling [...] like to speak with a social work team facilitator to help give you support for any [...] Maryanne Gomez MA 07/28/2019 2:21 PM Normal [facility] OBSOLETEon 07-14-2019 [facility] LIS[facility]RA ([id number]) 1935 F Date Time Provider Department 07/14/19 JO PEREZ During your visit today, we recorded the following information about you: Anne Marie Hobbs Prince 07/14/2019 9:33 AM Signed Pharmacy faxed requesting [...] Visit date not found Patient Phone numbers: [phone] (home) Request is for script(s) to be escript to pharmacy. Anne Marie Hobbs Prince Perez MD 07/14/2019 12:38 PM Signed She [...] artery stent placement- 2006 [Z95*11/14/2015 Atherosclerosis of [place] coronary artery of na*11/14/2015 Asymptomatic cholelithiasis [K80.20] [...] Encounter Status:Closed by JO PEREZ on 07/14/19 [facility] OBSOLETE Refill (AGCARDPOB) EZRA GONZALEZ ([id number]) 1935 F Date Time Provider Department 07/14/19 [...] artery stent placement- 2006 [Z95*11/14/2015 Atherosclerosis of [place] coronary artery of na*11/14/2015 Asymptomatic cholelithiasis [K80.20] [...] Status:Closed by RICKEY CHAVARRIA MD on 07/14/19 [facility] Bao 07-12-2019 CNPN Telephone ([employer]) EZRA GONZALEZ ([id number]) 1935 F Date Time Provider Department 07/12/19 [facility] AGINTMAC During your visit today, we recorded the following information about you: Estefania Cevallos PharmD 07/12/2019 9:12 AM Signed Referred by [...] Date: 12/30/16 +++Patient gets lab draw at [facility] in [place] [phone]+++ PT INR Date Value Ref Range Status 07/06/2019 2.5 Final Warfarin Dose: 2mg Fridayday Friday; 3mg all other days of the [...] who read back instructions and verbalized understanding. Jp CollinsD Allergies As of Date: 07/12/2019 Noted Allergy [...] (HCC) [I48.91] Order(s):PROTHROMBIN TIME/PT [SQPT] Order #: [id number] Prescriptions as of 07/12/2019 Sig: LISINOPRIL 5 [...] artery stent placement- 2006 [Z95*11/14/2015 Atherosclerosis of [place] coronary artery of na*11/14/2015 Asymptomatic cholelithiasis [K80.20] [...] Encounter Status:Closed by BHAKTI (PHARMACIST)ESTEFANIA on 07/12/19 [facility] OBSOLETEon 07-05-2019 OBSOLETE Refill (AGC) EZRA GONZALEZ ([id number]) 1935 F Date Time Provider Department 07/05/19 JO PEREZ [facility] During your visit today, we recorded the [...] Patient next appointment: 07/28/2019 Patient Phone numbers: [phone] (home) Request is for script(s) to be [...] artery stent placement- 2006 [Z95*11/14/2015 Atherosclerosis of [place] coronary artery of na*11/14/2015 Asymptomatic cholelithiasis [K80.20] [...] Status:Closed by PATITO WILSON CNP on 07/05/19 [facility] OBSOLETEon 07-01-2019 OBSOLETE Refill ([facility]) EZRA GONZALEZ ([id number]) 1935 F Date Time Provider Department 07/01/19 JO PEREZ [facility] During your visit today, we recorded the following information about you: Robert Diaz CMA 07/01/2019 9:20 AM Signed Patient called requesting the following refill. Pending Prescriptions Disp Refills RANITIDINE 150 MG TABLET 90 tablet 0 Sig: Take 1 tablet by mouth once daily. SHAHEEN: No Last refill: 03/18/2019 Patient last appointment: 06/10/2019 Patient next appointment: 07/28/2019 Patient Phone numbers: [phone] (home) Request is for script(s) to be [...] artery stent placement- 2006 [Z95*11/14/2015 Atherosclerosis of [place] coronary artery of na*11/14/2015 Asymptomatic cholelithiasis [K80.20] [...] Encounter Status:Closed by JO PEREZ on 07/01/19 [facility]ao 06-10-2019 [facility] Telephone ([employer]) EZRA GONZALEZ ([id number]) 1935 F Date Time Provider Department 06/10/19 JO PEREZ During your visit today, we recorded the following information about you: Swathi Cruz LPN, LEE 06/10/2019 12:42 PM Signed SHARED MEDICAL APPOINTMENT ([facility]) INVITE DATE: 07/22/2019 TIME: 10am-12pm PHYSICIAN: Lishnevski TOPIC/DIAGNOSIS: DM2 IS PATIENT INTERESTED IN ATTENDING? [...] artery stent placement- 2006 [Z95*11/14/2015 Atherosclerosis of [place] coronary artery of na*11/14/2015 Asymptomatic cholelithiasis [K80.20] [...] Status:Closed by SWATHI CRUZ LPN on 06/10/19 [facility] 06-07-2019 SUZIN Telephone ([employer]) EZRA GONZALEZ ([id number]) 1935 F Date Time Provider Department 06/07/19 ESTEFANIA CEVALLOS During your visit today, we recorded the following information about you: Estefania Cevallos PharmD 06/07/2019 2:52 PM Signed Referred by Dr. [...] Date: 12/30/16 +++Patient gets lab draw at [facility] in [place] [phone]+++ PT INR Date Value Ref Range Status [...] Estefania Cevallos PharmD Allergies As of Date: 06/07/2019 Noted Allergy Reaction CODEINE 03/20/2015 16 - Unknown CRESTOR (ROSUVASTATIN) 03/20/2015 14 - Other: See Comments Comments: Myalgias DEMEROL (MEPERIDINE) 03/20/2015 8 - GI Upset LATEX 03/20/2015 2 - Rash LIPITOR (ATORVASTATIN) 03/20/2015 14 - Other: See Comments Comments: Myalgias Date Reviewed: 05/13/2019 Reviewed by: Cruz Juanjo Lippitt - Fully Assessed Reason for Visit: Coumadin/INR [1207] Visit Diagnosis:Atrial fibrillation, unspecified type (HCC) [I48.91] Order(s):PROTHROMBIN TIME/PT [SQPT] Order #: [id number] Prescriptions as of 06/07/2019 Sig: COQ-10 ORAL [...] artery stent placement- 2006 [Z95*11/14/2015 Atherosclerosis of [place] coronary artery of na*11/14/2015 Asymptomatic cholelithiasis [K80.20] [...] Encounter Status:Closed by BHAKTI (PHARMACIST)ESTEFANIA on 06/07/19 [facility] 06-04-2019 CNPN Telephone (SARITH[employer]) EZRA GONZALEZ ([id number]) 1935 F Date Time Provider Department 06/04/19 ESTEFANIA CEVALLOS During your visit today, we recorded the following information about you: Estefania Cevallos PharmD 06/04/2019 2:30 PM Signed Patient was due to have an INR drawn at the end of May. We have not received results. Please check with patient. Angela Collins LPN, LEE 06/04/2019 3:44 PM Signed Called and spoke [...] artery stent placement- 2006 [Z95*11/14/2015 Atherosclerosis of [place] coronary artery of na*11/14/2015 Asymptomatic cholelithiasis [K80.20] [...] Encounter Status:Closed by BHAKTI (PHARMACIST)ESTEFANIA on 06/04/19 [facility] Office Visit (AGHWW1 ) EZRA GONZALEZ ([id number]) 1935 F Date Time Provider Department 05/13/19 4:00 PM CRUZ SANCHEZ AGHWW1 During your visit today, we recorded the following information about you: Respiration Weight Height 18/minute 82.6 kg 1.613 m Cruz Sanchez MD 05/13/2019 5:00 PM Signed HISTORY OF PRESENT ILLNESS: Ezra Gonzalez is an 83-year-old mecui-sjsz-pvesylqg female who returns for follow-up right shoulder [...] associated with diabetes mellitus (HCC) - 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) 2006 - On anticoagulant therapy - 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 - Osteoarthritis - Peripheral venous [...] R Shoulder CARDIOVASCULAR: Peripheral venous insufficiency, h/o PA, HTN, Coronary Arteriosclerosis, A-Fib, Cardiac Ablation MSK: [...] [Z98.890] Order(s):Large Joint Arthro/Inj: R subacromial bursa [LOO109] Order #: [id number] betamethasone acetate-betamethasone sodium phosphate 12 mg injection [...] artery stent placement- 2006 [Z95*11/14/2015 Atherosclerosis of [place] coronary artery of na*11/14/2015 Asymptomatic cholelithiasis [K80.20] [...] Status:Closed by CRUZ SANCHEZ MD on 05/13/19 [facility] PROGRESSon 05-13-2019 PROGRESS HNO ID: [id number] Author: Cruz Sanchez Service: ? Author Type: Physician Type: Progress Notes Filed: 05/13/2019 5:00 PM Note Text: HISTORY OF PRESENT ILLNESS: Ezra Gonzalez is an 83-year-old vmosj-kbxh-azvafkjy female who returns for follow-up right shoulder [...] associated with diabetes mellitus (HCC) - 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) 2006 - On anticoagulant therapy - On shelter drug therapy - Osteoarthritis - Peripheral venous [...] R Shoulder CARDIOVASCULAR: Peripheral venous insufficiency, h/o PA, HTN, Coronary Arteriosclerosis, A-Fib, Cardiac Ablation MSK: [...] to follow-up as needed. Cruz Sanchez MD [facility] CNOVon 04-27-2019 [facility] Office Visit ([facility]) EZRA GONZALEZ ([id number]) 1935 F Date Time Provider Department 04/27/19 3:40 PM JO PEREZ [facility] During your visit today, we recorded the following information about you: Temperature Pulse Respiration Blood pressure 97.2 degrees 71/minute 17/minute 112/74 Weight Height 82.6 kg 1.613 m Jo Perez MD 04/27/2019 4:24 PM Signed Medicare Yearly Visit Medical B eligibilty date [...] coronary artery stent placement- 2006 Atherosclerosis of [place] Coronary Artery of [place] Heart Without Angina Pectoris Asymptomatic Cholelithiasis History [...] Gonzalez Podiatry 05/19/2015 End 05/19/15 Nirmal Kemp ORTHOPEDIC ASSISTANT 07/07/2017 End 07/07/17 ; Mohan Álvarez Ophthalmology 07/07/2017 End 07/07/17 Rickey Chavarria Cardiology 09/30/2018 End 09/30/18 ; End of Live Planning discussed including patients advanced directive wishes: Yes I am willing to follow advanced directives. 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 - Discussed diabetic education issues of terminal operations supervisor diabetic complications, hypoglycemic symptoms, hyperglycemic symptoms, diet, [...] prepared fairly simply. If you were a clry-vsy-jprsvvxa eater, focus on the meat more than [...] your kitchen up for success. Always have mjm-ffsi-cvafkbxv foods on hand ready to eat. Remove [...] unspecified type [R19.7] Order(s):ADMIN OF INFLUENZA VACCINE [Q8424MDM] Order #: [id number]: 1 INFLUENZA SEASONAL HIGH DOSE AGE 65+ [49233GTD] Order #: [id number] metFORMIN (GLUCOPHAGE) 500 mg tabletTake 1 tablet by mouth daily with breakfast.Disp: Rfl: HGB A1C [COJUC3A] Order #: [id number] FUTURE COMP METABOLIC PANEL [SQCMP] Order #: [id number] FUTURE Prescriptions as of 04/27/2019 Sig: COQ-10 [...] artery stent placement- 2006 [Z95*11/14/2015 Atherosclerosis of [place] coronary artery of na*11/14/2015 Asymptomatic cholelithiasis [K80.20] [...] prepared fairly simply. If you were a jrnm-fts-dppzljzx eater, focus on the meat more than [...] your kitchen up for success. Always have bst-bwkk-caxvhmkm foods on hand ready to eat. Remove [...] Encounter Status:Closed by JO PEREZ on 04/27/19 Normal [facility] PROGRESSon 04-27-2019 PROGRESS HNO ID: [id number] Author: Jo Perez Service: ? Author Type: [...] coronary artery stent placement- 2006 Atherosclerosis of [place] Coronary Artery of [place] Heart Without Angina Pectoris Asymptomatic Cholelithiasis History [...] Gonzalez Podiatry 05/19/2015 End 05/19/15 Nirmal Kemp ORTHOPEDIC ASSISTANT 07/07/2017 End 07/07/17 ; Mohan Álvarez Ophthalmology 07/07/2017 End 07/07/17 Rickey Duffy Chavarria Cardiology 09/30/2018 End 09/30/18 ; End of Live Planning discussed including patients advanced directive wishes: Yes I am willing to follow advanced directives. Mini-Cog Patient asked to remember the following three words: Banana, [place] and Chair Visuospatial/Executiv e Functioning: Clock drawin/2 (Normal clock with all number in correct sequence and position, hands are correct = 2 points, inability or refusal to draw a clock = 0) Three word recall: 05/31 Total score: 5/5 (Total score = word [...] No history of dysuria, frequency or incontinence CASING IN LINE SETTER: Negative for abnormal vaginal bleeding, abnormal vaginal [...] with supplements or by diet (goal of 0194-0501 mg/day - Discussed need and benefit for [...] arise. - Discussed diabetic education issues of terminal operations supervisor diabetic complications, hypoglycemic symptoms, hyperglycemic symptoms, diet, [...] screening - Lipid panel Jo Perez MD [facility] 03-18-2019 [facility] Office Visit (AGHWW1 ) EZRA GONZALEZ ([id number]) 1935 F Date Time Provider Department 03/18/19 4:00 PM CRUZ SANCHEZ HWW1 During your visit today, we recorded the following information about you: Respiration Weight Height 17/minute 80.7 kg 1.651 m rCuz Sanchez MD 03/18/2019 7:00 PM Signed HISTORY OF PRESENT ILLNESS: Ezra Gonzalez is an 83-year-old ppbls-bgxi-iiwkcsfs female who returns for follow-up right shoulder [...] and strength with continued physical therapy in [place]. 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 Author Type: Physician Type: Progress Notes Filed: 03/18/2019 7:00 PM Note Text: HISTORY OF PRESENT ILLNESS: Ezra Gonzalez is an 83-year-old hzvdx-dzcr-zavrhrcn female who returns for follow-up right shoulder [...] and strength with continued physical therapy in [place]. 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 MSK: R Shoulder Repair 2011, B TKA, L ELÍAS SKIN: Negative for lesions, rash, itching, metal sensitivity NEURO: Diabetic Neuropathy ENDOCRINE: Dm II Controlled HEMATOLOGY: Jantoven PHYSICAL EXAMINATION: Vital Signs Resp 17 Ht [...] to follow-up as needed. Cruz Sanchez MD [facility] OBSOLETEon 03-17-2019 OBSOLETE Refill ([facility]) EZRA GONZALEZ ([id number]) 1935 F Date Time Provider Department 03/17/19 VIPUL BUCHANAN ([facility]) [facility] During your visit today, we recorded the following information about you: Anne Marie Hobbs Reg 03/18/2019 7:40 AM Signed Pharmacy faxed requesting the following refill. Pending Prescriptions Disp Refills LISINOPRIL 5 MG TABLET 90 tablet 0 Sig: TAKE ONE TABLET BY MOUTH once DAILY SHAHEEN: Yes Last refill: 10/09/2018 Patient last appointment: 09/30/2018 Patient next appointment: Visit date not found Patient Phone numbers: [phone] (home) Request is for script(s) to be [...] artery stent placement- 2006 [Z95*11/14/2015 Atherosclerosis of [place] coronary artery of na*11/14/2015 Asymptomatic cholelithiasis [K80.20] [...] Encounter Status:Closed by JO PEREZ on 03/18/19 [facility]ON[facility] ([id number]) 1935 F Date Time Provider Department 03/17/19 JO PEREZ [facility] During your visit today, we recorded the following information about you: Anne Marie Hobbs Reg 03/18/2019 7:41 AM Signed Pharmacy faxed requesting the following refill. Pending Prescriptions Disp Refills RANITIDINE 150 MG TABLET 90 tablet 0 Sig: TAKE ONE TABLET BY MOUTH EVERY DAY SHAHEEN: Yes Last refill: 12/16/2018 Patient last appointment: 09/30/2018 Patient next appointment: 04/02/2019 Patient Phone numbers: [phone] (home) Request is for script(s) to be [...] artery stent placement- 2006 [Z95*11/14/2015 Atherosclerosis of [place] coronary artery of na*11/14/2015 Asymptomatic cholelithiasis [K80.20] [...] Encounter Status:Closed by JO PEREZ on 03/18/19 [facility] CNOVon 02-04-2019 CNOV Office Visit (AGHWW1 ) EZRA GONZALEZ ([id number]) 1935 F Date Time Provider Department 02/04/19 1:30 PM CRUZ SANCHEZ AGHWW1 During your visit today, we recorded the following information about you: Respiration Weight Height 17/minute 80.7 kg 1.676 m Cruz Sanchez MD 02/04/2019 4:40 PM Signed HISTORY OF PRESENT ILLNESS: Ezra Gonzalez was provided orthopedic evaluation regarding right shoulder complaints. Patient is an 83-year-old qbmuq-yeap-aadzrdmg female who is previously known status post [...] associated with diabetes mellitus (HCC) - 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) 2006 - On anticoagulant therapy - On shelter drug therapy - Osteoarthritis - Peripheral venous [...] conditions CARDIOVASCULAR: A-Fib, Coronary Arteriosclerosis, HTN, Old PA, Peripheral Venous Inufficiency, MSK: Degenerative Joint Disease, [...] GENERAL 3V OR MORE AP/TRUE AP/OTHER RT [[id number]] Order #: [id number] CONSULT TO PHYSICAL THERAPY (AG) [[id number]] Order #: [id number]: 1 DRAIN/INJECT LARGE JOINT/BURSA [[id number]] Order #: [id number] [] betamethasone acetate-betamethasone sodium phosphate 12 mg [...] stent placement- 2006 [Z95*INVALID FOR* Atherosclerosis of [place] coronary artery of na*INVALID FOR* Asymptomatic cholelithiasis [...] Status:Closed by CRUZ SANCHEZ MD on 02/04/19 [facility] PROGRESSon 02-04-2019 PROGRESS HNO ID: [id number] Author: Cruz Sanchez Service: ? Author Type: Physician Type: Progress Notes Filed: 02/04/2019 4:40 PM Note Text: HISTORY OF PRESENT ILLNESS: Ezra Gonzalez was provided orthopedic evaluation regarding right shoulder complaints. Patient is an 83-year-old dcwgl-dogs-dawfrqep female who is previously known status post [...] associated with diabetes mellitus (HCC) - 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) 2006 - On anticoagulant therapy - On shelter drug therapy - Osteoarthritis - Peripheral venous [...] conditions CARDIOVASCULAR: A-Fib, Coronary Arteriosclerosis, HTN, Old PA, Peripheral Venous Inufficiency, MSK: Degenerative Joint Disease, [...] somewhat guarded medical candidate. Cruz Sanchez MD [facility] OBSOLETEon 01-21-2019 OBSOLETE Refill (AGCARDPOB) EZRA GONZALEZ ([id number]) 1935 F Date Time Provider Department 01/21/19 [...] Myalgias Date Reviewed: 11/27/2018 Reviewed by: Vika ([facility]) Brian - Fully Assessed Reason for [...] stent placement- 2006 [Z95*INVALID FOR* Atherosclerosis of [place] coronary artery of na*INVALID FOR* Asymptomatic cholelithiasis [...] Status:Closed by RICKEY CHAVARRIA MD on 01/21/19 [facility] OBSOLETE Refill ([facility]) EZRA GONZALEZ ([id number]) 1935 F Date Time Provider Department 01/21/19 JO PEREZ [facility] During your visit today, we recorded the following information about you: Anne Marie Anjel Reg 01/21/2019 12:05 PM Signed Pharmacy faxed requesting the following refill. Pending Prescriptions Disp Refills FUROSEMIDE 20 MG TABLET 90 tablet 2 Sig: TAKE ONE TABLET BY MOUTH ONCE DAILY SHAHEEN: Yes Last refill: 01/05/2018 Patient last appointment: 09/30/2018 Patient next appointment: 04/02/2019 Patient Phone numbers: [phone] (home) Request is for script(s) to be escript to pharmacy. Anne Marie Britogers Reg Allergies As of Date: 01/21/2019 Noted Allergy Reaction CODEINE 03/20/2015 16 - Unknown CRESTOR (ROSUVASTATIN) 03/20/2015 14 - Other: See Comments Comments: Myalgias DEMEROL (MEPERIDINE) 03/20/2015 8 - GI Upset LATEX 03/20/2015 2 - Rash LIPITOR (ATORVASTATIN) 03/20/2015 14 - Other: See Comments Comments: Myalgias Date Reviewed: 11/27/2018 [facility]: [facility] Brian - Fully Assessed Reason for [...] stent placement- 2006 [Z95*INVALID FOR* Atherosclerosis of [place] coronary artery of na*INVALID FOR* Asymptomatic cholelithiasis [...] Encounter Status:Closed by JO PEREZ on 01/21/19 [facility] CNTHERAPYon 12-14-2018 CNTHERAPY OT/PT/Speech Visit (AKSTWP) EZRA GONZALEZ ([id number]) 1935 F Date Time Provider Department 12/14/18 11:00 AM ANOOP COLLAZO (AUD) AKSTWP Date Time Provider Department Center 12/14/2018 11:00 AM [id number], SHARON (*AKSTWP NOLAN LONG Reason for Visit: Difficulty In Hearing In Noise [1113] Cmt: noted x 1-2 yrs Speech Discharge [7148] Cmt: AUDIOLOGY DISCHARGED 12-14-18 Reason For Visit [...] Myalgias Date Reviewed: 11/27/2018 Reviewed by: Vika ([facility]) Brian - Fully Assessed Prescriptions as [...] Jazmyn Hinson, AUD 12/14/2018 4:44 PM Signed [facility] OUTPATIENT AUDIOLOGY SERVICES AUDIOLOGIC EVALUATION REPORT 12/14/2018 Page 1 of 3 Patient: Ezra Snell Lisa : 1935 Referred by: Jo Perez (PCP: Yazmin) Referred for: Evaluation of suspected change in hearing, tinnitus, or balance. Referral documented: In an order in [facility]: OTHER ORDERS: : CONSULT TO AUDIOLOGY FOR DIAGNOSTIC TESTING [9003] (Order [id number]) Patient's major complaints: Progressively increasing difficulty in [...] --Pure tone audiometry using insert earphones demonstrates ompm-gr-izihmsyttt severe level sensorineural type hearing loss, worse [...] up w/ referring physician. Report routed via [employer] inbox to Dr. Perez on 12/14/2018 -Re-evaluation [...] Audiogram can be also be viewed in [employer] Smart[employer]:Audiology: Audiometry. OAE and tympanometry results can be viewed in [facility] Scanned Documents. RIGHT EAR Hearing Sensitivity: 250-500HZ: WNL; 750-2000Hz:mild; 3000-8000Hz: moderate-severe SNHL Word Recognition Score (order by difficulty 10 word list): Excellent (90%) at slt amplified loudness (fair at conversational loudness) Tympanometry: Type A : Normal ME function. Otoacoustic Emissions results: 750-3000Hz: WNL; 0244-7952: reduced; 8000Hz: absent. LEFT EAR Hearing Sensitivity: 250-500HZ: WNL; 750-3000Hz: moderate; 6000-8000Hz: severe SNHL Word Recognition Score (order by difficulty 10 word list): Excellent (90%) at amplified loudness (poor at conversational loudness) Tympanometry: Type A : Normal ME function. Otoacoustic Emissions results: 750-1000Hz: absent; 4706-2067: reduced; 6000-8000Hz: absent. William Hinson. Government Teacher 12/14/2018 3:30 PM Ezra Gonzalez : 1935 [...] eval. Follow-up and Disposition History Recorded [employer] filed during this visit: Audiometry Letter Text Normal [facility] OBSOLETEon 12-14-2018 OBSOLETE Refill ([facility]) EZRA GONZALEZ ([id number]) 1935 F Date Time Provider Department 12/14/18 JO PEREZ [facility] During your visit today, we recorded the following information about you: Robert Diaz CMA 12/16/2018 1:00 PM Signed Patient called requesting the following refill. Pending Prescriptions Disp Refills RANITIDINE 150 MG TABLET 90 tablet 0 Sig: TAKE ONE TABLET BY MOUTH EVERY DAY SHAHEEN: Yes Last refill: 09/16/2018 Patient last appointment: 10/20/2018 Patient next appointment: 04/02/2019 Patient Phone numbers: [phone] (home) Request is for script(s) to be [...] Myalgias Date Reviewed: 11/27/2018 Reviewed [facility]: [facility] Brian - Fully Assessed Reason for [...] stent placement- 2006 [Z95*INVALID FOR* Atherosclerosis of [place] coronary artery of na*INVALID FOR* Asymptomatic cholelithiasis [...] Encounter Status:Closed by JO PEREZ on 12/16/18 Normal [facility] PROGRESSon 12-14-2018 PROGRESS HNO ID: [id number] Author: Anoop Crisostomo) JAZMYN Collazo Service: ? Author Type: Government Teacher Type: Progress Notes Filed: 12/14/2018 4:44 PM Note Text: [facility] OUTPATIENT AUDIOLOGY SERVICES AUDIOLOGIC EVALUATION REPORT 12/14/2018 Page 1 of 3 Patient: Ezra Gonzalez : 1935 Referred by: Jo Perez (PCP: Yazmin) Referred for: Evaluation of suspected change in hearing, tinnitus, or balance. Referral documented: In an order in Epic: OTHER ORDERS: : CONSULT TO AUDIOLOGY FOR DIAGNOSTIC TESTING [9003] (Order [id number]) Patient's major complaints: Progressively increasing difficulty in [...] --Pure tone audiometry using insert earphones demonstrates xyyd-mc-hlovwyumqn severe level sensorineural type hearing loss, worse [...] up w/ referring physician. Report routed via [employer] inbox to Dr. Perez on 12/14/2018 -Re-evaluation [...] Audiogram can be also be viewed in [employer]:Audiology: Audiometry. OAE and tympanometry results can be viewed in [employer] Scanned Documents. RIGHT EAR Hearing Sensitivity: 250-500HZ: WNL; 750-2000Hz:mild; 3000-8000Hz: moderate-severe SNHL Word Recognition Score (order by difficulty 10 word list): Excellent (90%) at slt amplified loudness (fair at conversational loudness) Tympanometry: Type A : Normal ME function. Otoacoustic Emissions results: 750-3000Hz: WNL; 2898-7345: reduced; 8000Hz: absent. LEFT EAR Hearing Sensitivity: 250-500HZ: WNL; 750-3000Hz: moderate; 6000-8000Hz: severe SNHL Word Recognition Score (order by difficulty 10 word list): Excellent (90%) at amplified loudness (poor at conversational loudness) Tympanometry: Type A : Normal ME function. Otoacoustic Emissions results: 750-1000Hz: absent; 8487-5201: reduced; 6000-8000Hz: absent. William Hinson. Government Teacher 12/14/2018 3:30 PM Ezra Gonzalez : 1935 Page 3 of 3 GARCÍA Abbreviation Definition Degree of hearing sensitivity dB range WNL within normal limits WNL 0 - 20 SNHL sensorineural hearing loss Mild 20-40 CHL conductive hearing loss Moderate 40-55 MHL mixed hearing loss Moderately-Severe 55-70 ME middle ear Severe 70-90 OAE Distortion Product Otoacoustic Emissions Profound 90 + TM tympanic membrane Normal [facility] CNOVon 11-27-2018 CNOV Office Visit ([facility]) EZRA GONZALEZ ([id number]) 1935 F Date Time Provider Department 11/27/18 11:00 AM RICKEY CHAVARRIA [facility] During your visit today, we recorded the following information about you: Pulse Respiration Blood pressure Weight 66/minute 18/minute 124/70 80.7 kg Height 1.575 m Vika Torres CMA 11/27/2018 11:00 AM Signed Patient has no cardiac complaints today. Vika Chavarria MD 11/27/2018 11:24 AM Signed PRIMARY CARE PHYSICIAN: Jo Perez MD [address] [place] [address] HISTORY OF PRESENT ILLNESS: Ms. Gonzalez is [...] again. 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 Ezra denies [...] of the time was spent in direct, gwvu-ez-zpjf, contact with the patient for management and counseling. 1. Essential hypertension - ICD9: 401.9, ICD10: I10 (primary diagnosis) 2. Obesity, Class I, BMI 30-34.9 - ICD9: 278.00, ICD10: E66.9 3. Mixed hyperlipidemia - ICD9: 272.2, ICD10: E78.2 4. Paroxysmal atrial fibrillation (HCC) - ICD9: 427.31, ICD10: I48.0 5. Chronic anticoagulation - ICD9: V58.61, ICD10: Z79.01 Rickey Chavarria M.D. [facility] Referring Provider: SELF [[id number]] Allergies As of Date: 11/27/2018 Noted Allergy Reaction CODEINE 03/20/2015 16 - Unknown CRESTOR (ROSUVASTATIN) 03/20/2015 14 - Other: See Comments Comments: Myalgias DEMEROL (MEPERIDINE) 03/20/2015 8 - GI Upset LATEX 03/20/2015 2 - Rash LIPITOR (ATORVASTATIN) 03/20/2015 14 - Other: See Comments Comments: Myalgias Date Reviewed: 11/27/2018 Reviewed by: Vika ([facility]) Brian - Fully Assessed Reason for Visit: CARD Follow Up Annual [1232] Primary Visit Diagnosis:Essential hypertension [I10] Other Visit Diagnoses:Obesity, Class I, BMI 30-34.9 [E66.9] Mixed hyperlipidemia [E78.2] Paroxysmal atrial fibrillation (HCC) [I48.0] Chronic anticoagulation [Z79.01] Order(s):ECG B/O W INTERP (MED OFFICE) [ECG06] Order #: [id number] Prescriptions as of 11/27/2018 Sig: SIMVASTATIN 20 [...] stent placement- 2006 [Z95*INVALID FOR* Atherosclerosis of [place] coronary artery of na*INVALID FOR* Asymptomatic cholelithiasis [...] [Z79.01] INVALID FOR* Visit Notes: >> Vika Torres FriNov 27, 2018 10:54 AM Status: Signed Patient has no cardiac complaints today. Vika Torres [facility] Disposition: Return in about 1 year (around 11/28/2019). Follow-up and Disposition History Recorded Letter Text Encounter Status:Closed by RICKEY CHAVARRIA MD on 11/27/18 [facility] PROGRESSon 11-27-2018 PROGRESS HNO ID: [id number] Author: Rickey Chavarria Service: ? Author Type: Physician Type: Progress Notes Filed: 11/27/2018 11:24 AM Note Text: PRIMARY CARE PHYSICIAN: Jo Perez MD [address] [place] [address] HISTORY OF PRESENT ILLNESS: Ms. Gonzalez is [...] again. 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 Ezra [...] of the time was spent in direct, voia-rx-cjsh, contact with the patient for management and counseling. 1. Essential hypertension - ICD9: 401.9, ICD10: I10 (primary diagnosis) 2. Obesity, Class I, BMI 30-34.9 - ICD9: 278.00, ICD10: E66.9 3. Mixed hyperlipidemia - ICD9: 272.2, ICD10: E78.2 4. Paroxysmal atrial fibrillation (HCC) - ICD9: 427.31, ICD10: I48.0 5. Chronic anticoagulation - ICD9: V58.61, ICD10: Z79.01 Rickey Chavarria M.D. [facility] Normal [facility] BONE DENSITY STUDY BY XRAY 7 7080on 07-15-2017 BONE DENSITY STUDY BY XRAY [id number] Performed at [facility] APPROVED BY: Kemar Adams MD EXAMINATION: BONE MINERAL DENSITOMETRY (DEXA SCAN) EXAM DATE: 07/15/2017 09:43 CLINICAL INDICATION: 82-year-old postmenopausal female , follow-up osteoporosis screening. COMPARISON: DEXA scan 10/06/2013. DXA [employer] v.13.4 examination is performed on the lumbar [...] is a trademark of the [employer]'s [facility] Disease, a WHO Collaborating [place]. This applies to men over 50 and [...] high risk for accelerated bone loss). Normal [facility] MAMMOGRAM SCREENING WITH CAD IF PERFORMEDon 06-27-2017 MAMMOGRAM SCREENING WITH CAD IF PERFORMED Performed at [facility] APPROVED BY: Lucas Garrido MD #[id number] - MAMMOGRAM SCREENING WITH CAD IF PERFORMEDBILATERAL DIGITAL SCREENING MAMMOGRAM WITH CAD WITH MEDIOLATERAL OBLIQUE CRANIOCAUDAL: 06/27/2017CLINICAL: Routine screening mammogram. Patient reports no breast problems. Comparison is made to exams dated: 07/22/2016 mammogram - [facility], 06/26/2016 mammogram, 06/09/2015 mammogram, and 04/01/2014 mammogram - [facility]. There are scattered fibroglandular elements in both breasts. Current study was also evaluated with a Computer Aided Detection (CAD) system. No significant masses, calcifications, or other findings are seen in either breast. There has been no significant interval change. IMPRESSION: NEGATIVEThere is no mammographic evidence of malignancy. A 1 year screening mammogram is recommended. The patient was notified of the results. 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 B) COLON, RANDOM BIOPSIES - NO PATHOLOGIC ABNORMALITIES. [facility] CONVERTED GROSS DESCRIPTION GROSS DESCRIPTION: A) Ascending [...] totally submitted in cassette B x 3. SMS:[facility] CONVERTED ORDERING PROVIDER Ordering Provider: SIH LESTER [facility] Otheron 04-19-2010 CONVERTED ELECTRONIC SIGNATURE RAVINDER HAN M.D., PATHOLOGIST (Electronic signature on file) Final Signed Out: 04/19/2010 14:33 [facility] CONVERTED FINAL DIAGNOSIS FINAL DIAGNOSI S: RIGHT SHOULDER, EXCISION - BONE AND ATTACHED CARTILAGE WITH DEGENERATIVE CHANGES. SYNOVIUM WITH NONSPECIFIC REACTIVE CHANGES AND FOCAL MILD CHRONIC INFLAMMATION. SPECIMEN: SHOULDER [facility] CONVERTED GROSS DESCRIPTION GROSS DESCRIPTION: Rt shoulder tissue The container is labeled right shoulder tissue. Received are portions of pink-montague soft tissue and red-montague bone measuring 3 x 3 x 1 cm in aggregate. Sample of soft tissue is submitted in cassette 1, sample of bone is submitted in cassette 2 following decal. SMS/lrs MICROSCOPIC DESCRIPTION: Slides reviewed. 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 SPECIMEN: FEMORAL HEAD [facility] CONVERTED GROSS DESCRIPTION GROSS DESCRIPTION: Left femoral [...] decal. SMS:ATP:hlm MICROSCOPIC DESCRIPTION: Slides reviewed. SDS/gpl [facility] CONVERTED ORDERING PROVIDER Ordering Provider: CLOTILDE DOSS [facility] Thyroidon 08-02-2009 TSH Dylan TYLER M.D., PATHOLOGIST (Electronic signature on file) Final Signed Out: 08/02/2009 14:47 [facility]acon 05-11-2001 Cholesterol [Mass/Vol] Ordering Provider : SAE RESENDIZ [facility] Otheron 05-11-2001 CONVERTED ELECTRONIC SIGNATURE MICHAEL HAWTHORNE M.D., PATHOLOGIST (Electronic signature on file) Final Signed Out: 05/11/2001 11:39 [facility] CONVERTED FINAL DIAGNOSIS TISSUE, REMOVE D AT RELEASE OF RIGHT RING FINGER - FIBROCOLLAGENOUS TISSUE WITH FOCAL FIBROBLASTIC REACTION AND FOCAL MIXOID CHANGE. ATTACHED SMALL AMOUNT OF TISSUE CONSISTENT WITH SYNOVIUM. [facility] Vital Signs Date Time Vital Sign Value Performing Clinician Facility 09-13-2024 14:00-0400 Body height 160.[address] Alexandra Hagen MD Work Phone: [facility] 09-13-2024 14:00-0400 Body mass index (BMI) [Ratio] 30.7 kg/m2 Dr. Alexandra Hagen MD Work Phone: [facility] 09-13-2024 14:00-0400 Body temperature 92.6 [degF] Dr. Alexandra Hagen MD Work Phone: [facility] 09-13-2024 14:00-0400 Body weight 78.[address] Alexandra Hagen MD Work Phone: 1(092)809-279747 [address] 09-13-2024 14:00-0400 Diastolic blood pressure 79 mm[Hg] Dr. Alexandra Hagen MD Work Phone: 4(877)592-809760 [place] [address] 09-13-2024 14:00-0400 Heart rate 83 /min Dr. Alexandra Hagen MD Work Phone: 6(910)653-743360 [place] [address] 09-13-2024 14:00-0400 Respiratory rate 17 /min Dr. Alexandra Hagen MD Work Phone: 4(104)904-673560 [place] [address] 09-13-2024 14:00-0400 SaO2% (BldA) [Mass fraction] 97 % Dr. Alexandra Hagen MD Work Phone: 3(818)131-527360 [place] [address] 09-13-2024 14:00-0400 Systolic blood pressure 126 mm[Hg] Dr. Alexandra Hagen MD Work Phone: 6(377)336-860760 [place] [address] 09-11-2024 13:55-0400 Body mass index (BMI) [Ratio] 30.3 kg/m2 Dr. Alexandra Hagen MD Work Phone: 1(106)095-592660 [place] [address] 09-11-2024 09:09-0400 Body temperature 97.8 [degF] Dr. Alexandra Hagen MD Work Phone: 5(984)708-463160 [place] [address] 09-11-2024 09:09-0400 Diastolic blood pressure 85 mm[Hg] Dr. Alexandra Hagen MD Work Phone: 9(881)514-865160 [place] [address] 09-11-2024 09:09-0400 Heart rate 84 /min Dr. Alexandra Hagen MD Work Phone: 4(444)449-098260 [place] [address] 09-11-2024 09:09-0400 Respiratory rate 18 /min Dr. Alexandra Hagen MD Work Phone: 9(758)631-297160 [place] [address] 09-11-2024 09:09-0400 SaO2% (BldA) [Mass fraction] 98 % Dr. Alexandra Hagen MD Work Phone: 1(130)158-978660 [place] [address] 09-11-2024 09:09-0400 Systolic blood pressure 174 mm[Hg] Dr. Alexandra Hagen MD Work Phone: [facility] 09-10-2024 17:17-0400 Body height 160.[address] Alexandra Hagen MD Work Phone: [facility] 09-10-2024 17:17-0400 Body weight 77.[address] Alexandra Hagen MD Work Phone: 4(537)992-581960 [place] [address] 09-10-2024 16:30-0400 Diastolic blood pressure 73 mm[Hg] Dr. Alexandra Hagen MD Work Phone: 1(397)626-665210 [place] [address] 09-10-2024 16:30-0400 Heart rate 79 /min Dr. Alexandra Hagen MD Work Phone: 1(136)897-786860 [place] [address] 09-10-2024 16:30-0400 Respiratory rate 20 /min Dr. Alexandra Hagen MD Work Phone: 5(034)960-060960 [place] [address] 09-10-2024 16:30-0400 SaO2% (BldA) [Mass fraction] 93 % Dr. Alexandra Hagen MD Work Phone: 6(646)982-181410 [place] [address] 09-10-2024 16:30-0400 Systolic blood pressure 118 mm[Hg] Dr. Alexandra Hagen MD Work Phone: 5(296)084-314560 [place] [address] 09-10-2024 16:07-0400 Body temperature 98.3 [degF] Dr. Alexandra Hagen MD Work Phone: 2(062)719-359610 [place] [address] 09-10-2024 14:19-0400 Body height 160.[address] Alexandra Hagen MD Work Phone: 8(373)103-667310 [place] [address] 09-10-2024 14:19-0400 Body mass index (BMI) [Ratio] 26.5 kg/m2 Dr. Alexandra Hagen MD Work Phone: 6(817)591-399010 [place] [address] 09-10-2024 14:19-0400 Body weight 68.[address] Alexandra Hagen MD Work Phone: [facility] 09-08-2024 15:30-0400 Heart rate 64 /min Dr. Alexandra Hagen MD Work Phone: 4(739)152-843110 [place] [address] 09-08-2024 15:30-0400 Respiratory rate 23 /min Dr. Alexandra Hagen MD Work Phone: 8(648)660-287960 [place] [address] 09-08-2024 15:30-0400 SaO2% (BldA) [Mass fraction] 97 % Dr. Alexandra Hagen MD Work Phone: 6(739)765-331460 [place] [address] 09-08-2024 12:22-0400 Body height 160.[address] Alexandra Hagen MD Work Phone: 3(865)968-932760 [place] [address] 09-08-2024 12:22-0400 Body mass index (BMI) [Ratio] 33.5 kg/m2 Dr. Alexandra Hagen MD Work Phone: 8(239)814-416560 [place] [address] 09-08-2024 12:22-0400 Body temperature 98 [degF] Dr. Alexandra Hagen MD Work Phone: 4(037)828-806160 [place] [address] 09-08-2024 12:22-0400 Body weight 85.[address] Alexandra Hagen MD Work Phone: 6(960)826-483460 [place] [address] 09-08-2024 12:22-0400 Diastolic blood pressure 70 mm[Hg] Dr. Alexandra Hagen MD Work Phone: 8(602)068-144960 [place] [address] 09-08-2024 12:22-0400 Systolic blood pressure 131 mm[Hg] Dr. Alexandra Hagen MD Work Phone: 5(143)702-301260 [place] [address] 07-01-2024 10:38-0400 Body height 160.[address] Alexandra Hagen MD Work Phone: 3(169)581-616860 [place] [address] 07-01-2024 10:38-0400 Body mass index (BMI) [Ratio] 30.8 kg/m2 Dr. Alexandra Hagen MD Work Phone: 6(928)612-574260 [place] [address] 07-01-2024 10:38-0400 Body weight 78.[address] Alexandra Hagen MD Work Phone: 6(573)141-588860 [place] [address] 07-01-2024 10:38-0400 Diastolic blood pressure 85 mm[Hg] Dr. Alexandra Hagen MD Work Phone: [facility] 07-01-2024 10:38-0400 Heart rate 60 /min Dr. Alexandra Hagen MD Work Phone: [facility] 07-01-2024 10:38-0400 Respiratory rate 16 /min Dr. Alexandra Hagen MD Work Phone: [facility] 07-01-2024 10:38-0400 Systolic blood pressure 184 mm[Hg] Dr. Alexandra Hagen MD Work Phone: [facility] 05-10-2024 14:35-0500 Body height 160.[address] Alexandra Hagen MD Work Phone: 8(893)291-455847 [address] 05-10-2024 14:35-0500 Body mass index (BMI) [Ratio] 30.9 kg/m2 Dr. Alexandra Hagen MD Work Phone: 0(411)857-300510 [place] [address] 05-10-2024 14:35-0500 Body temperature 97.8 [degF] Dr. Alexandra Hagen MD Work Phone: 2(355)547-396110 [place] [address] 05-10-2024 14:35-0500 Body weight 79.[address] Alexandra Hagen MD Work Phone: [facility] 05-10-2024 14:35-0500 Diastolic blood pressure 86 mm[Hg] Dr. Alexandra Hagen MD Work Phone: [facility] 05-10-2024 14:35-0500 Heart rate 75 /min Dr. Alexandra Hagen MD Work Phone: [facility] 05-10-2024 14:35-0500 Respiratory rate 16 /min Dr. Alexandra Hagen MD Work Phone: [facility] 05-10-2024 14:35-0500 SaO2% (BldA) [Mass fraction] 94 % Dr. Alexandra Hagen MD Work Phone: [facility] 05-10-2024 14:35-0500 Systolic blood pressure 140 mm[Hg] Dr. Alexandra Hagen MD Work Phone: [facility] 06-20-2023 11:10-0400 Diastolic blood pressure 92 mm[Hg] Sae Conde MD Work Phone: [facility] 06-20-2023 11:10-0400 Heart rate 88 /min Sae Conde MD Work Phone: [facility] 06-20-2023 11:10-0400 Systolic blood pressure 173 mm[Hg] Sae Conde MD Work Phone: [facility] 06-20-2023 05:34-0400 Body temperature 97.39 [degF] Sae Conde MD Work Phone: [facility] 06-20-2023 05:34-0400 Respiratory rate 20 /min Sae Conde MD Work Phone: [facility] 06-20-2023 05:34-0400 SaO2% (BldA) [Mass fraction] 95 % Sae Conde MD Work Phone: [facility] 06-17-2023 18:30-0400 Body height 160 cm Sae Conde MD Work Phone: [facility] 06-17-2023 18:30-0400 Body mass index (BMI) [Ratio] 30.83 kg/m2 Sae Conde MD Work Phone: [facility] 06-17-2023 18:30-0400 Body weight 78.93 kg Sae Conde MD Work Phone: [facility] 06-16-2023 11:02-0400 Body temperature 96.4 [degF] Dr. Rosemary Doran Work Phone: [facility] 06-16-2023 11:02-0400 Diastolic blood pressure 84 mm[Hg] Dr. Rosemary Doran Work Phone: [facility] 06-16-2023 11:02-0400 Heart rate 72 /min Dr. Rosemary Doran Work Phone: [facility] 06-16-2023 11:02-0400 Respiratory rate 16 /min Dr. Rosemary Doran Work Phone: [facility] 06-16-2023 11:02-0400 SaO2% (BldA) [Mass fraction] 96 % Dr. Rosemary Doran Work Phone: [facility] 06-16-2023 11:02-0400 Systolic blood pressure 157 mm[Hg] Dr. Rosemary Doran Work Phone: [facility] 06-16-2023 08:33-0400 Body height 160.[address] Rosemary Doran Work Phone: [facility] 06-16-2023 08:33-0400 Body mass index (BMI) [Ratio] 33.1 kg/m2 Dr. Rosemary Doran Work Phone: [facility] [facility] 08:33-0400 Body weight 84.[address] Rosemary Doran Work Phone: [facility] 05-19-2023 11:21-0500 Body height 160.[address] Rosemary Doran Work Phone: [facility] 05-19-2023 11:21-0500 Body mass index (BMI) [Ratio] 31.6 kg/m2 Dr. Rosemary Doran Work Phone: [facility] 05-19-2023 11:21-0500 Body temperature 97.8 [degF] Dr. Rosemary Doran Work Phone: [facility] 05-19-2023 11:21-0500 Body weight 81.[address] Rosemary Doran Work Phone: [facility] 05-19-2023 11:21-0500 Diastolic blood pressure 90 mm[Hg] Dr. Rosemary Doran Work Phone: [facility] 05-19-2023 11:21-0500 Heart rate 88 /min Dr. Rosemary Doran Work Phone: [facility] 05-19-2023 11:21-0500 Respiratory rate 17 /min Dr. Rosemary Doran Work Phone: [facility] 05-19-2023 11:21-0500 SaO2% (BldA) [Mass fraction] 98 % Dr. Rosemary Doran Work Phone: [facility] 05-19-2023 11:21-0500 Systolic blood pressure 152 mm[Hg] Dr. Rosemary Doran Work Phone: [facility] 05-15-2023 09:01-0500 Body mass index (BMI) [Ratio] 31.6 kg/m2 Dr. Rosemary Doran Work Phone: [facility] 05-15-2023 09:01-0500 Body weight 81.[address] Rosemary Doran Work Phone: [facility] 05-15-2023 09:01-0500 Diastolic blood pressure 85 mm[Hg] Dr. Rosemary Doran Work Phone: [facility] 05-15-2023 09:01-0500 Heart rate 78 /min Dr. Rosemary Doran Work Phone: [facility] 05-15-2023 09:01-0500 Respiratory rate 18 /min Dr. Rosemary Doran Work Phone: [facility] 05-15-2023 09:01-0500 Systolic blood pressure 156 mm[Hg] Dr. Rosemary Doran Work Phone: [facility] 01-20-2023 08:05-0400 Body height 160.[address] Rosemary Doran Work Phone: [facility] 01-20-2023 08:05-0400 Body mass index (BMI) [Ratio] 32 kg/m2 Dr. Rosemary Doran Work Phone: [facility] 01-20-2023 08:05-0400 Body temperature 98 [degF] Dr. Rosemary Doran Work Phone: [facility] 01-20-2023 08:05-0400 Body weight 82.[address] Rosemary Doran Work Phone: [facility] 01-20-2023 08:05-0400 Diastolic blood pressure 90 mm[Hg] Dr. Rosemary Doran Work Phone: [facility] 01-20-2023 08:05-0400 Heart rate 88 /min Dr. Rosemary Doran Work Phone: [facility] 01-20-2023 08:05-0400 Respiratory rate 17 /min Dr. Rosemary Doran Work Phone: [facility] 01-20-2023 08:05-0400 SaO2% (BldA) [Mass fraction] 97 % Dr. Rosemary Doran Work Phone: [facility] 01-20-2023 08:05-0400 Systolic blood pressure 140 mm[Hg] Dr. Rosemary Doran Work Phone: [facility] 12-28-2022 11:09-0400 Body temperature 97.8 [degF] Dr. Rosemary Doran Work Phone: [facility] 12-28-2022 11:09-0400 Diastolic blood pressure 79 mm[Hg] Dr. Rosemary Doran Work Phone: [facility] 12-28-2022 11:09-0400 Heart rate 84 /min Dr. Rosemary Doran Work Phone: [facility] 12-28-2022 11:09-0400 Respiratory rate 16 /min Dr. Rosemary Doran Work Phone: [facility] 12-28-2022 11:09-0400 SaO2% (BldA) [Mass fraction] 96 % Dr. Rosemary Doran Work Phone: [facility] 12-28-2022 11:09-0400 Systolic blood pressure 169 mm[Hg] Dr. Rosemary Doran Work Phone: [facility] 12-27-2022 19:16-0400 Body height 160.[address] Rosemary Doran Work Phone: [facility] 12-27-2022 19:16-0400 Body mass index (BMI) [Ratio] 32.1 kg/m2 Dr. Rosemary Doran Work Phone: [facility] 12-27-2022 19:16-0400 Body weight 82.[address] Rosemary Doran Work Phone: [facility] 12-05-2022 09:25-0400 Body temperature 98.2 [degF] Dr. Rosemary Doran Work Phone: [facility] 12-05-2022 09:25-0400 Body weight 82.[address] Rosemary Doran Work Phone: [facility] 12-05-2022 09:25-0400 Diastolic blood pressure 85 mm[Hg] Dr. Rosemary Doran Work Phone: [facility] 12-05-2022 09:25-0400 Heart rate 90 /min Dr. Rosemary Doran Work Phone: [facility] 12-05-2022 09:25-0400 SaO2% (BldA) [Mass fraction] 95 % Dr. Rosemary Doran Work Phone: [facility] 12-05-2022 09:25-0400 Systolic blood pressure 145 mm[Hg] Dr. Rosemary Doran Work Phone: [facility] 11-18-2022 11:24-0400 Diastolic blood pressure 82 mm[Hg] Dr. Rosemary Doran Work Phone: [facility] 11-18-2022 11:24-0400 Heart rate 76 /min Dr. Rosemary Doran Work Phone: [facility] 11-18-2022 11:24-0400 Respiratory rate 15 /min Dr. Rosemary Doran Work Phone: [facility] 11-18-2022 11:24-0400 SaO2% (BldA) [Mass fraction] 98 % Dr. Rosemary Doran Work Phone: [facility] 11-18-2022 11:24-0400 Systolic blood pressure 137 mm[Hg] Dr. Rosemary Doran Work Phone: [facility] 11-18-2022 07:55-0400 Body height 160.[address] Rosemary Doran Work Phone: [facility] 11-18-2022 07:55-0400 Body mass index (BMI) [Ratio] 32.9 kg/m2 Dr. Rosemary Doran Work Phone: [facility] 11-18-2022 07:55-0400 Body weight 84.[address] Rosemary Doran Work Phone: [facility] 11-18-2022 07:50-0400 Body temperature 97.8 [degF] Dr. Rosemary Doran Work Phone: [facility] 11-15-2022 10:11-0400 Body mass index (BMI) [Ratio] 32.2 kg/m2 Dr. Rosemary Doran Work Phone: [facility] 11-15-2022 08:55-0400 Body temperature 97.7 [degF] Dr. Rosemary Doran Work Phone: [facility] 11-15-2022 08:55-0400 Diastolic blood pressure 78 mm[Hg] Dr. Rosemary Doran Work Phone: [facility] 11-15-2022 08:55-0400 Heart rate 68 /min Dr. Rosemary Doran Work Phone: [facility] 11-15-2022 08:55-0400 Respiratory rate 16 /min Dr. Rosemary Doran Work Phone: [facility] 11-15-2022 08:55-0400 SaO2% (BldA) [Mass fraction] 96 % Dr. Rosemary Doran Work Phone: [facility] 11-15-2022 08:55-0400 Systolic blood pressure 136 mm[Hg] Dr. Rosemary Doran Work Phone: [facility] 11-14-2022 13:12-0400 Body weight 82.[address] Rosemary Doran Work Phone: [facility] 11-14-2022 12:30-0400 Body temperature 97.6 [degF] Dr. Rosemary Doran Work Phone: [facility] 11-14-2022 12:30-0400 Diastolic blood pressure 101 mm[Hg] Dr. Rosemary Doran Work Phone: [facility] 11-14-2022 12:30-0400 Heart rate 64 /min Dr. Rosemary Doran Work Phone: [facility] 11-14-2022 12:30-0400 Respiratory rate 14 /min Dr. Rosemary Doran Work Phone: [facility] 11-14-2022 12:30-0400 SaO2% (BldA) [Mass fraction] 98 % Dr. Rosemary Doran Work Phone: [facility] 11-14-2022 12:30-0400 Systolic blood pressure 164 mm[Hg] Dr. Rosemary Doran Work Phone: [facility] 11-14-2022 11:02-0400 Body height 160.[address] Rosemary Doran Work Phone: [facility] 11-14-2022 11:02-0400 Body mass index (BMI) [Ratio] 33.7 kg/m2 Dr. Rosemary Doran Work Phone: [facility] 11-14-2022 11:02-0400 Body weight 86.[address] Rosemary Doran Work Phone: [facility] 10-15-2022 09:24-0400 Body height 160.[address] Rosemary Doran Work Phone: [facility] 10-15-2022 09:24-0400 Body mass index (BMI) [Ratio] 30.8 kg/m2 Dr. Rosemary Doran Work Phone: [facility] 10-15-2022 09:24-0400 Body weight 78.[address] Rosemary Doran Work Phone: [facility] 10-15-2022 09:24-0400 Diastolic blood pressure 87 mm[Hg] Dr. Rosemary Doran Work Phone: [facility] 10-15-2022 09:24-0400 Heart rate 73 /min Dr. Rosemary Doran Work Phone: [facility] 10-15-2022 09:24-0400 Respiratory rate 18 /min Dr. Rosemary Doran Work Phone: [facility] 10-15-2022 09:24-0400 Systolic blood pressure 149 mm[Hg] Dr. Rosemary Doran Work Phone: [facility] 09-18-2022 19:36-0400 Diastolic blood pressure 72 mm[Hg] Dr. Rosemary Doran Work Phone: [facility] 09-18-2022 19:36-0400 Systolic blood pressure 140 mm[Hg] Dr. Rosemary Doran Work Phone: [facility] 09-18-2022 08:05-0400 Body height 160.[address] Rosemary Doran Work Phone: [facility] 09-18-2022 08:05-0400 Body mass index (BMI) [Ratio] 31.8 kg/m2 Dr. Rosemary Doran Work Phone: [facility] 09-18-2022 08:05-0400 Body temperature 97.8 [degF] Dr. Rosemary Doran Work Phone: [facility] 09-18-2022 08:05-0400 Body weight 81.[address] Rosemary Doran Work Phone: [facility] 09-18-2022 08:05-0400 Heart rate 111 /min Dr. Rosemary Doran Work Phone: [facility] 09-18-2022 08:05-0400 Respiratory rate 17 /min Dr. Rosemary Doran Work Phone: [facility] 09-18-2022 08:05-0400 SaO2% (BldA) [Mass fraction] 99 % Dr. Rosemary Doran Work Phone: [facility] 09-08-2022 16:03-0400 Diastolic blood pressure 84 mm[Hg] Dr. Rosemary Doran Work Phone: [facility] 09-08-2022 16:03-0400 Heart rate 90 /min Dr. Rosemary Doran Work Phone: [facility] 09-08-2022 16:03-0400 Respiratory rate 20 /min Dr. Rosemary Doran Work Phone: [facility] 09-08-2022 16:03-0400 SaO2% (BldA) [Mass fraction] 97 % Dr. Rosemary Doran Work Phone: [facility] 09-08-2022 16:03-0400 Systolic blood pressure 157 mm[Hg] Dr. Rosemary Doran Work Phone: [facility] 09-08-2022 15:32-0400 Body mass index (BMI) [Ratio] 33.2 kg/m2 Dr. Roesmary Doran Work Phone: [facility] 09-08-2022 15:32-0400 Body weight [address] Rosemary Dorna Work Phone: [facility] 09-08-2022 14:26-0400 Body temperature 96.8 [degF] Dr. Rosemary Doran Work Phone: [facility] 04-16-2022 14:26-0500 Body height 160.[address] Rosemary Doran Work Phone: [facility] 04-16-2022 14:26-0500 Body mass index (BMI) [Ratio] 30.6 kg/m2 Dr. Rosemary Doran Work Phone: [facility] 04-16-2022 14:26-0500 Body weight 78.[address] Rosemary Doran Work Phone: [facility] 04-16-2022 14:26-0500 Diastolic blood pressure 60 mm[Hg] Dr. Rosemary Doran Work Phone: [facility] 04-16-2022 14:26-0500 Heart rate 88 /min Dr. Rosemary Doran Work Phone: [facility] 04-16-2022 14:26-0500 Respiratory rate 18 /min Dr. Rosemary Doran Work Phone: [facility] 04-16-2022 14:26-0500 Systolic blood pressure 89 mm[Hg] Dr. Rosemary Doran Work Phone: [facility] 02-11-2022 02:02-0500 Diastolic blood pressure 82 mm[Hg] Dr. Rosemary Doran Work Phone: [facility] 02-11-2022 02:02-0500 Heart rate 74 /min Dr. Rosemary Doran Work Phone: [facility] 02-11-2022 02:02-0500 Respiratory rate 16 /min Dr. Rosemary Doran Work Phone: [facility] 02-11-2022 02:02-0500 SaO2% (BldA) [Mass fraction] 96 % Dr. Rosemary Doran Work Phone: [facility] 02-11-2022 02:02-0500 Systolic blood pressure 106 mm[Hg] Dr. Rosemary Doran Work Phone: [facility] 02-11-2022 00:07-0500 Body height 160.[address] Rosemary Doran Work Phone: [facility] Work Phone: 02-11-2022 00:07-0500 Body mass index (BMI) [Ratio] 33.1 kg/m2 Dr. Rosemary Doran Work Phone: [facility] 02-11-2022 00:07-0500 Body temperature 98.4 [degF] Dr. Rosemary Doran Work Phone: [facility] 02-11-2022 00:07-0500 Body weight 84.[address] Rosemary Doran Work Phone: [facility] 10-18-2021 10:26-0400 Body mass index (BMI) [Ratio] 33.1 kg/m2 Dr. Rosemary Doran Work Phone: [facility] Work Phone: 10-18-2021 10:26-0400 Body weight 84.[address] Rosemary Doran Work Phone: [facility] Work Phone: 10-18-2021 10:26-0400 Diastolic blood pressure 63 mm[Hg] Dr. Rosemary Doran Work Phone: [facility] Work Phone: 10-18-2021 10:26-0400 Heart rate 87 /min Dr. Rosemary Doran Work Phone: [facility] Work Phone: 10-18-2021 10:26-0400 Respiratory rate 20 /min Dr. Rosemary Doran Work Phone: [facility] Work Phone: 10-18-2021 10:26-0400 SaO2% (BldA) [Mass fraction] 96 % Dr. Rosemary Doran Work Phone: [facility] Work Phone: 10-18-2021 10:26-0400 Systolic blood pressure 101 mm[Hg] Dr. Rosemary Doran Work Phone: [facility] Work Phone: Encounters Encounter Date Encounter Type Care Provider Facility Start: 09-13-2024 End: 09-13-[address] Anant Juarez MD -[facility] Work Phone: Start: 09-13-2024 End: 09-13-[address] Alexandra Hagen MD Work Phone: [facility] Work Phone: Start: 09-11-2024 Non-patient / Non-visit Dr. Richardson WHEELER -[facility] Work Phone: Start: 09-10-2024 End: 09-11-2024 ambulatory [facility] Facility:[facility] Start: 09-10-2024 End: 09-11-2024 Evaluation and management of inpatient Dr. Matthew Oro DO -[facility] Work Phone: Start: 09-10-2024 End: 09-11-[address] Alexandra Hagen MD Work Phone: [facility] Work Phone: Start: 09-08-2024 End: 09-08-2024 Emergency department patient visit Dr. Alexandra Hagen MD Work Phone: -Emergency Department Work Phone: Start: 08-18-2024 End: 08-18-[address] lAexandra Hagen MD Work Phone: [facility] Work Phone: Start: 08-18-2024 End: 08-18-2024 Departed Referred [facility] Work Phone: Start: 08-18-2024 Registered Referred [facility] Work Phone: Start: 08-18-2024 End: 08-18-2024 ambulatory Cesar MARTINEZ Facility:[facility] Start: 07-19-2024 End: 07-19-[address] Alexandra Hagen MD Work Phone: [facility] Work Phone: Start: 07-19-2024 End: 07-19-2024 Departed Referred [facility] Work Phone: Start: 07-19-2024 End: 07-19-2024 ambulatory Cesar MARTINEZ Facility:[facility] Start: 07-01-2024 End: 07-01-[address] Cesar Cole MD -[facility] Work Phone: Start: 07-01-2024 End: 07-01-2024 ambulatory Cesar Cole Facility:[facility] Start: 06-16-2024 End: 06-16-[address] Alexandra Hagen MD Work Phone: [facility] Work Phone: Start: 06-16-2024 End: 06-16-[address] [facility] Work Phone: Start: 06-16-[address] Chucky leger MD -[facility] Work Phone: Start: 06-16-2024 End: 06-16-2024 ambulatory Chucky MARTINEZ Facility:[facility] Start: 06-09-2024 End: 06-09-[address] Alexandra Hagen MD Work Phone: [facility] Work Phone: Start: 06-09-2024 End: 06-09-[address] [facility] Work Phone: Start: 06-09-2024 End: 06-09-2024 ambulatory Chucky MARTINEZ Facility:[facility] Start: 05-19-2024 End: 05-19-[address] Alexandra Hagen MD Work Phone: [facility] Work Phone: Start: 05-19-2024 End: 05-19-2024 Departed Referred [facility] Work Phone: Start: 05-19-2024 [address] [facility] Work Phone: Start: 05-19-2024 End: 05-19-2024 ambulatory Cesar MARTINEZ Facility:[facility] Start: 05-12-2024 ambulatory Anant MARTINEZ Fac ility:[facility] Start: 05-12-2024 Registered Referred [facility] Work Phone: Start: 05-10-2024 End: 05-10-[address] Anant Juarez MD -[facility] Work Phone: Start: 05-10-2024 End: 05-10-2024 ambulatory Anant Juarez Facility:[facility] Start: 05-05-2024 End: 05-05-[address] Alexandra Hagen MD Work Phone: [facility] Work Phone: Start: 05-05-2024 End: 05-05-2024 Departed Referred [facility] Work Phone: Start: 05-05-2024 Registered Referred [facility] Work Phone: Start: 05-05-2024 End: 05-05-2024 ambulatory Cesar MARTINEZ Facility:[facility] Start: 04-28-2024 End: 04-28-[address] Alexandra Hagen MD Work Phone: [facility] Work Phone: Start: 04-28-2024 End: 04-28-[address] Chucky Ochoa MD -[facility] Work Phone: Start: 04-28-2024 End: 04-28-2024 ambulatory Chucky MARTINEZ Facility:[facility] Start: 04-14-2024 ambulatory Chucky MARTINEZ Facil ity:[facility] Start: 04-14-[address] Chucky leger MD -[facility] Work Phone: Start: 04-09-2024 End: 04-09-[address] Chucky Ochoa MD -[facility] Work Phone: Start: 04-09-2024 End: 04-09-2024 ambulatory Chucky MARTINEZ Facility:[facility] Start: 04-06-2024 End: 04-06-[address] [facility] Work Phone: Start: 04-05-2024 End: 04-06-2024 ambulatory Chucky Ochoa [facility] Facility:[facility] Start: 04-05-[address] [facility] Work Phone: Start: 03-29-2024 ambulatory Chucky Ochoa [facility] Facil ity:[facility] Start: 03-29-[address] [facility] Work Phone: Start: 03-26-2024 ambulatory Chucky Ochoa [facility] Facil ity:[facility] Start: 03-26-[address] [facility] Work Phone: Start: 03-25-2024 ambulatory Chucky Ochoa [facility] Facil ity:[facility] Start: 03-25-[address] [facility] Work Phone: Start: 03-19-2024 ambulatory Chucky Ochoa [facility] Facil ity:[facility] Start: 03-19-[address] [facility] Work Phone: Start: 03-17-2024 ambulatory Chucky Don [facility] Facil ity:[facility] Start: 03-17-[address] [facility] Work Phone: Start: 03-10-2024 ambulatory Chucky Ochoa [facility] Facil ity:[facility] Start: 03-10-[address] [facility] Work Phone: Start: 03-08-2024 ambulatory Chucky Ochoa [facility] Facil ity:[facility] Start: 03-08-[address] [facility] Work Phone: Start: 03-04-2024 ambulatory Chucky Ochoa [facility] Facil ity:[facility] Start: 03-04-[address] Chucky leger MD -[facility] Work Phone: Start: 02-05-2024 End: 02-05-[address] Chucky Ochoa MD -[facility] Work Phone: Start: 02-05-2024 End: 02-05-2024 ambulatory Chucky MARTINEZ Facility:[facility] Start: 01-08-2024 End: 01-08-2024 ambulatory Chucky MARTINEZ Facility:[facility] Start: 12-26-2023 End: 12-26-2023 ambulatory Chucky MARTINEZ Facility:[facility] Start: 12-19-2023 End: 12-19-2023 ambulatory Chucky MARTINEZ Facility:[facility] Start: 12-18-2023 End: 12-18-2023 ambulatory Chucky MARTINEZ Facility:[facility] Start: 11-20-2023 ambulatory Chucky MARTINEZ Facil ity:[facility] Start: 11-05-2023 End: 11-05-2023 ambulatory Chucky MARTINEZ Facility:[facility] Start: 11-04-2023 End: 11-04-2023 ambulatory Chucky MARTINEZ Facility:[facility] Start: 10-28-2023 End: 10-28-2023 ambulatory Chucky MARTINEZ Facility:[facility] Start: 10-24-2023 End: 10-24-2023 ambulatory Chucky MARTINEZ Facility:[facility] Start: 10-21-2023 End: 10-21-2023 ambulatory Chucky MARTINEZ Facility:[facility] Start: 10-15-2023 End: 10-15-2023 ambulatory Alexandra Hagen Facility:[facility] Start: 10-10-2023 End: 10-10-2023 ambulatory Chucky MARTINEZ Facility:[facility] Start: 09-22-2023 End: 09-22-2023 ambulatory Rosemary Doran Facility:[facility] Start: 09-22-2023 End: 09-22-2023 ambulatory Alexandra Hagen Facility:[facility] Start: 06-30-2023 End: 06-30-[address] Rosemary Doran Work Phone: [facility] Work Phone: Start: 06-30-2023 End: 06-30-[address] Rosemary Doran Work Phone: [facility] Work Phone: Start: 06-16-2023 End: 06-20-2023 Evaluation and management of inpatient [facility] Start: 06-16-2023 End: 06-20-2023 Evaluation and management of inpatient Sae Conde MD Work Phone: [facility] Comment on above: Closed displaced fra cture of medial condyle of right humerus, initial encounter (Primary Dx) Start: 06-16-2023 Non-patient / Non-visit Dr. Slim Doran Work Phone: [facility] Start: 06-16-2023 End: 06-16-2023 Emergency department patient visit Dr. Rosemary Doran Work Phone: [facility]Emergency Department Work Phone: Start: 05-30-2023 End: 05-30-[address] Rosemary Doran Work Phone: [facility] Work Phone: Start: 05-30-2023 End: 05-30-[address] Rosemary Doran Work Phone: [facility] Work Phone: Start: 05-19-2023 End: 05-19-[address] Rosemary Doran Work Phone: [facility] Work Phone: Start: 05-15-2023 End: 05-15-[address] Rosemary Doran Work Phone: [facility] Work Phone: Start: 05-12-2023 End: 05-12-[address] Rosemary Doran Work Phone: [facility] Work Phone: Start: 05-12-[address] Rosemary Doran Work Phone: [facility] Work Phone: Start: 05-01-2023 End: 05-01-[address] Rosemary Doran Work Phone: [facility] Work Phone: Start: 05-01-2023 End: 05-01-[address] Rosemary Doran Work Phone: [facility] Work Phone: Start: 04-17-2023 End: 04-17-[address] Rosemary Doran Work Phone: [facility] Work Phone: Start: 04-17-2023 End: 04-17-[address] Rosemary Doran Work Phone: [facility] Work Phone: Start: 04-17-[address] Rosemary Doran Work Phone: [facility] Work Phone: Start: 03-20-2023 End: 03-20-[address] Rosemary Doran Work Phone: [facility] Work Phone: Start: 02-21-2023 End: 02-21-[address] Rosemary Doran Work Phone: [facility] Work Phone: Start: 02-21-2023 End: 02-21-[address] Rosemary Doran Work Phone: [facility] Work Phone: Start: 01-20-2023 End: 01-20-[address] Rosemary Doran Work Phone: [facility] Work Phone: Start: 01-20-2023 End: 01-20-[address] Rosemary Doran Work Phone: [facility] Work Phone: Start: 01-20-2023 End: 01-20-[address] Rosemary Doran Work Phone: [facility] Work Phone: Start: 01-16-2023 End: 01-16-[address] Rosemary Doran Work Phone: [facility] Work Phone: Start: 01-16-2023 End: 01-16-[address] Rosemary Doran Work Phone: [facility] Work Phone: Start: 12-28-2022 Non-patient / Non-visit Dr. Slim Doran Work Phone: [facility] Work Phone: Start: 12-27-2022 Non-patient / Non-visit Dr. Slim Doran Work Phone: [facility] Work Phone: Start: 12-27-2022 End: 12-28-2022 Evaluation and management of inpatient Dr. Rosemary Doran Work Phone: [facility] Work Phone: Start: 12-27-2022 End: 12-28-[address] Rosemary Doran Work Phone: [facility] Work Phone: Start: 12-19-2022 End: 12-19-[address] Rosemary Doran Work Phone: [facility] Work Phone: Start: 12-19-2022 End: 12-19-[address] Rosemary Doran Work Phone: [facility] Work Phone: Start: 12-19-[address] Rosemary Doran Work Phone: [facility] Work Phone: Start: 12-09-2022 End: 12-09-[address] Rosemary Doran Work Phone: [facility] Work Phone: Start: 12-09-2022 End: 12-09-[address] Rosemary Doran Work Phone: [facility] Work Phone: Start: 12-09-[address] Rosemary Doran Work Phone: [facility] Work Phone: Start: 12-05-2022 End: 12-05-[address] Rosemary Doran Work Phone: [facility] Work Phone: Start: 11-20-2022 End: 11-20-[address] Rosemary Doran Work Phone: [facility] Work Phone: Start: 11-20-2022 End: 11-20-[address] Rosemary Doran Work Phone: [facility] Work Phone: Start: 11-20-[address] Rosemary Doran Work Phone: [facility] Work Phone: Start: 11-18-2022 End: 11-18-2022 Emergency department patient visit Dr. Rosemary Doran Work Phone: [facility]Emergency Department Work Phone: Start: 11-15-2022 Non-patient / Non-visit Dr. Slim Doran Work Phone: [facility] Work Phone: Start: 11-14-2022 Non-patient / Non-visit Dr. Slim Doran Work Phone: [facility] Start: 11-14-2022 Non-patient / Non-visit Dr. Slim Doran Work Phone: [facility] Work Phone: Start: 11-14-2022 End: 11-15-2022 Evaluation and management of inpatient Dr. Rosemary Doran Work Phone: [facility]-Progressive Care Unit Work Phone: Start: 11-14-[address] Marcelo Doran Work Phone: [facility] Work Phone: Start: 10-23-2022 End: 10-23-[address] Rosemary Doran Work Phone: [facility] Work Phone: Start: 10-23-2022 End: 10-23-[address] Rosemary Doran Work Phone: [facility] Work Phone: Start: 10-22-2022 End: 10-22-[address] Rosemary Doran Work Phone: [facility] Work Phone: Start: 10-22-2022 End: 10-22-[address] Rosemary Doran Work Phone: [facility]-Physical Therapy Work Phone: Start: 10-22-[address] Sada Doran Work Phone: [facility]Physical Therapy Work Phone: Start: 10-15-2022 End: 10-15-[address] Rosemary Doran Work Phone: [facility] Work Phone: Start: 09-26-2022 Non-patient / Non-visit Dr. Slim Doran Work Phone: [facility] Start: 09-26-2022 End: 09-26-[address] Rosemary Doran Work Phone: [facility] Work Phone: Start: 09-26-2022 End: 09-26-[address] Rosemary Doran Work Phone: [facility]-Cardiovascula r Services Work Phone: Start: 09-18-2022 End: 09-18-[address] Rosemary Doran Work Phone: [facility] Work Phone: Start: 09-18-2022 End: 09-18-[address] Rosemary Doran Work Phone: [facility] Start: 09-13-2022 End: 09-13-[address] [facility] Start: 09-08-2022 End: 09-08-2022 Emergency department patient visit Dr. Rosemary Doran Work Phone: [facility]Emergency Department Start: 09-06-2022 End: 09-06-[address] Rosemary Doran Work Phone: [facility] Start: 09-05-2022 End: 09-05-[address] Rosemary Doran Work Phone: [facility] Start: 08-08-2022 End: 08-08-[address] Rosemary Doran Work Phone: [facility] Start: 06-26-2022 End: 06-26-[address] Rosemary Doran Work Phone: [facility] Work Phone: Start: 06-26-2022 End: 06-26-[address] Rosemary Doran Work Phone: [facility] Start: 06-04-2022 End: 06-04-[address] Rosemary Doran Work Phone: [facility] Work Phone: Start: 06-04-2022 End: 06-04-[address] Rosemary Doran Work Phone: [facility] Start: 04-16-2022 End: 04-16-[address] Rosemary Doran Work Phone: [facility] Start: 02-11-2022 End: 02-11-2022 Emergency department patient visit Dr. Rosemary Doran Work Phone: [facility]Emergency Department Start: 10-18-2021 End: 10-18-[address] Rosemary Doran Work Phone: [facility] Start: 10-12-2019 End: 10-12-2019 Refill Jo Perez Work Phone: [facility] Comment on above: Refill Request; Refi ll Request Start: 02-11-2018 Patient encounter ROSA ELENA Cai lity:[facility] Start: 01-05-2018 End: 01-05-2018 Patient encounter JO PEREZ Facility:[facility] Start: 07-21-2017 End: 07-21-2017 Patient encounter RICKEY CHAVARRIA Facility:[facility] Start: 07-15-2017 Patient encounter ALEXJONH PEREZ Facility:[facility] Start: 07-07-2017 End: 07-07-2017 Patient encounter JO PEREZ Facility:[facility] Start: 06-27-2017 End: 06-27-2017 Patient encounter ALEXJONH PEREZ Facility:[facility] Start: 06-11-2017 Patient encounter ALEXJONH PEREZ Facility:[facility] Start: 02-01-2015 End: 02-01-2015 Patient encounter procedure Shi Lester Work Phone: [facility] Start: 02-01-2015 Results Only Shi ford Work Phone: [facility] Start: 04-17-2010 End: 04-17-2010 Patient encounter procedure Cruz Sanchez Work Phone: [facility] Start: 04-17-2010 Results Only Cruz Nguyen ippitt Work Phone: [facility] Start: 07-31-2009 End: 07-31-2009 Patient encounter procedure Clotilde Juradochastity Doss Work Phone: [facility] Start: 07-31-2009 Results Only Clotilde Stone V rabec Work Phone: [facility] Start: 05-07-2001 End: 05-07-2001 Patient encounter procedure Sae Resendiz Work Phone: [facility] Start: 05-07-2001 Results Only Sae Arnett Pap as Work Phone: [facility] Procedures Date Procedure Procedure Detail Performing Clinician Start: 09-11-[address] Alexandra Hagen MD Work Phone: Start: 09-10-2024 MRI of brain without contrast Dr. Alexandra Hagen MD Work Phone: Start: 09-10-2024 Urnls dip stick/tabl et reagent auto microscopy Dr. Alexandra Hagen MD Work Phone: Start: 09-10-[address] Alexandra Hagen MD Work Phone: Start: 09-10-[address] Alexandra madison MD Work Phone: Start: 09-10-2024 CT angiography of he ad and neck Dr. Alexandra Hagen MD Work Phone: Start: 09-10-2024 CT of head without contrast Dr. Alexandra Hagen MD Work Phone: Start: 09-08-[address] 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 Work Phone: Start: 06-19-2023 Glucose quantitative blood xcpt reagent strip Connie Perez [facility] Work Phone: Start: 06-19-2023 Glucose quantitative blood xcpt reagent strip Connie Perez [facility] Work Phone: Start: 06-19-2023 Glucose quantitative blood xcpt reagent strip Connie Perez [facility] Work Phone: Start: 06-19-2023 Prothrombin time Sonal Perez [facility] Work Phone: Start: 06-19-2023 Glucose quantitative blood xcpt reagent strip Connie Perez [facility] Work Phone: Start: 06-19-2023 Basic metabolic pane l calcium total Connie Perez [facility] Work Phone: Start: 06-18-2023 Glucose quantitative blood [...] metabolic pane l calcium total Connie Perez [facility] Work Phone: Start: 06-17-2023 Glucose quantitative blood xcpt reagent strip Generic Provider Poct Start: 06-17-2023 Prothrombin time Talon Dinero MD Work Phone: Start: 06-17-2023 Radiologic exam ches t single view Shayne Fonseca MD Work Phone: Start: 06-17-2023 Ecg routine ecg w/le ast 12 lds trcg only w/o i&r Shayne Fonseca MD Work Phone: Start: 06-16-2023 Ct upper extremity w /o contrast material Deondre Kaufman MD Work Phone: Start: 06-16-2023 Antibody screen JAYSHREE CORTEZ Comment on above: Performed By: #### L [id number] ####Chief Business Development Officer: ALEXANDRA BUSTAMANTE ([phone])[facility] [place] [address] Start: 06-16-2023 End: 06-16-2023 Radex shoulder complete minimum 2 views Madeleine Hanks MD Work Phone: Start: 06-16-2023 ABO and Rh group [Ty pe] in Blood by Confirmatory method Ewa ZUNIGA Work Phone: Start: 06-16-2023 Basic metabolic pane l calcium total Ewa ZUNIGA Work Phone: Start: 06-16-2023 Blood typing serolog ic abo Ewa ZUNIGA Work Phone: Start: 06-16-2023 Plain chest X-ray [...] Treatment Date Care Activity Detail Author Start: 09-13-2024 Lamotrigine measurement [facility] Start: 09-13-2024 Measurement of substance [facility] Start: 09-11-2024 Patient discharge [facility] Start: 09-11-2024 Complete blood count [facility] Start: 09-10-2024 Following clinical p athway protocol [facility] Start: 09-10-2024 Transfusion of blood product [facility] Start: 09-10-2024 Aspiration precautions [facility] Start: 09-10-2024 Assessment of risk o f venous thromboembolism [facility] Start: 09-10-2024 Cardiac monitoring [facility] Start: 09-10-2024 Catheterization of vein [facility] Start: 09-10-2024 Consultation [facility] Start: 09-10-2024 Continuous pulse oximetry [facility] Start: 09-10-2024 Electroencephalogram [facility] Start: 09-10-2024 Elevation of head of bed [facility] Start: 09-10-2024 Exercises [facility] Start: 09-10-2024 Insertion of cathete r into peripheral vein [facility] Start: 09-10-2024 Notification of physician [facility] Start: 09-10-2024 Oxygen therapy [facility] Start: 09-10-2024 Patient referral to dietitian [facility] Start: 09-10-2024 Providing care accor ding to standard [facility] Start: 09-10-2024 Referral to occupati onal therapist [facility] Start: 09-10-2024 Referral to service [facility] Start: 09-10-2024 Speech therapy assessment [facility] Start: 09-10-2024 Telemedicine consult ation with patient [facility] Start: 09-10-2024 Tobacco use cessatio n education [facility] Start: 09-10-2024 Vital signs measurements [facility] Start: 09-10-2024 End: 09-10-2024 [facility] Start: 09-10-2024 Verification routine [facility] Start: 09-10-2024 MRI of brain without contrast Brain without Contrast [facility] Start: 09-10-2024 Admission procedure [facility] Start: 09-10-2024 [facility] Start: 09-10-2024 Bacteria identified in Urine by Culture Urine Culture [facility] Start: 09-10-2024 Urine culture [facility] Start: 09-10-2024 Oxygen therapy [facility] Start: 09-10-2024 [facility] Start: 09-08-2024 Lamotrigine measurement [facility] Start: 01-06-2024 Urine microalbumin profile DTA P,TDAP,TD (1 - Tdap) [facility] Comment on above: Postponed from 06/23 (Declined at this time) Start: 07-28-2023 ADVANCE DIRECTIVE DISCUSSION A DVANCE DIRECTIVE DISCUSSION [facility] Start: 06-16-2023 Application long arm splint shoulder hand APPLY LONG ARM SPLINT [facility] Start: 06-16-2023 [facility] Start: 03-31-2023 Medicare Advantage A nnual Wellness Visit Medicare Advantage Annual Wellness Visit [facility] Start: 01-20-2023 Serum immunofixation [facility] Start: 01-20-2023 Urine immunofixation [facility] Start: 12-28-2022 Patient discharge [facility] Start: 12-28-2022 [facility] Start: 12-27-2022 Following clinical p athway protocol [facility] Start: 12-27-2022 Assessment of risk o f venous thromboembolism [facility] Start: 12-27-2022 Catheterization of vein [facility] Start: 12-27-2022 Incentive spirometry [facility] Start: 12-27-2022 Inhalation therapy procedure [facility] Start: 12-27-2022 Insertion of cathete r into peripheral vein [facility] Start: 12-27-2022 Measuring intake and output [facility] Start: 12-27-2022 Neurological assessment [facility] Start: 12-27-2022 Providing care accor ding to standard [facility] Start: 12-27-2022 Provision of activit y privileges [facility] Start: 12-27-2022 Referral to occupati onal therapist [facility] Start: 12-27-2022 Referral to service [facility] Start: 12-27-2022 Speech therapy assessment [facility] Start: 12-27-2022 [facility] Start: 12-27-2022 Admission procedure [facility] Start: 11-15-2022 Patient discharge [facility] Start: 11-15-2022 Blood chemistry [facility] Start: 11-14-2022 Following clinical p athway protocol [facility] Start: 11-14-2022 Assessment of risk o f venous thromboembolism [facility] Start: 11-14-2022 Cardiac monitoring [facility] Start: 11-14-2022 Catheterization of vein [facility] Start: 11-14-2022 Continuous pulse oximetry [facility] Start: 11-14-2022 Elevation of head of bed [facility] Start: 11-14-2022 Exercises [facility] Start: 11-14-[address] anned interventions [facility] Start: 11-14-2022 Insertion of cathete r into peripheral vein [facility] Start: 11-14-2022 Measuring intake and output [facility] Start: 11-14-2022 MRI of brain without contrast Brain without Contrast [facility] Start: 11-14-2022 Notification of physician [facility] Start: 11-14-2022 Oxygen therapy [facility] Start: 11-14-2022 Patient referral to dietitian [facility] Start: 11-14-2022 Providing care accor ding to standard [facility] Start: 11-14-2022 Referral to occupati onal therapist [facility] Start: 11-14-2022 Referral to service [facility] Start: 11-14-2022 Speech therapy assessment [facility] Start: 11-14-2022 Tobacco use cessatio n education [facility] Start: 11-14-2022 [facility] Start: 11-14-2022 Verification routine [facility] Start: 11-14-2022 Admission procedure [facility] Start: 11-14-2022 Patient referral to dietitian [facility] Start: 09-18-2022 Patient referral [facility] Work Phone: Start: 09-18-2022 [place] and lambda light chains [facility] Start: 09-18-2022 Thiamine measurement [facility] Start: 09-17-2022 [facility] Start: 03-26-2020 Hepatitis B screening URINE ALBUMIN:CREATININE RATIO [facility] Start: 03-26-2020 Hepatitis B surface antibody level LDL CHOLESTEROL [facility] Start: 11-30-2019 Influenza vaccination INFLUENZA (#1) [facility] Start: 10-01-2019 [object Object] [facility] Start: 09-25-2019 HbA1c (Bld) [Mass fraction] HBA1C [facility] Start: 07-07-2018 Hepatitis C antibody , confirmatory test DILATED RETINAL EXAM [facility] Start: 07-20-2013 DTaP/Tdap/Td Vaccine s (1 - Tdap) DTaP/Tdap/Td Vaccines (1 - Tdap) [facility] Start: 12-05-2010 SHINGRIX VACCINE (2 of 3) CONTRERAS GRIX VACCINE (2 of 3) [facility] Start: 12-05-2010 Zoster Vaccines (2 of 3) Zoste r Vaccines (2 of 3) [facility] Start: 1995 RSV Immunization age d 60 or older (1 - 1-dose 60+ series) RSV Immunization aged 60 or older (1 - 1-dose 60+ series) [facility] Start: 1947 Depression Screening Depression Scre ening [facility] Start: 1935 Screening for osteoporosis Bone Dens ity Scan [facility] Albumin [Moles/volum e] in Serum or Plasma [facility] Albumin/Globulin ratio [facility] Anion gap in Serum or Plasma [facility] Anion gap measurement [facility] Ankle brachial pressure index [facility] Blood ammonia measurement [facility] Blood ammonia measurement [facility] BUN/Creatinine ratio [facility] BUN/Creatinine ratio [facility] Calcium [Mass/volume ] in Serum or Plasma [facility] Calcium [Mass/volume ] in Serum or Plasma [facility] Carbon dioxide, tota l [Moles/volume] in Central venous blood [facility] Carbon dioxide, tota l [Moles/volume] in Serum or Plasma [facility] Chloride [Moles/volu me] in Serum or Plasma [facility] Cholesterol [Mass/vo lume] in Serum or Plasma [facility] Cholesterol [Mass/vo lume] in Serum or Plasma [facility] Cholesterol in HDL [Mass/volume] in Serum or Plasma [facility] Cholesterol in HDL [Mass/volume] in Serum or Plasma [facility] Cholesterol in LDL [Mass/volume] in Serum or Plasma [facility] Creatinine [Mass/vol ume] in Serum or Plasma [facility] Creatinine [Moles/vo lume] in Serum or Plasma [facility] Electrophoresis: [id number] [facility] Electrophoresis: andrew ma globulin [facility] Erythrocyte mean cor puscular volume determination [facility] Globulin measurement [facility] Glucose [Mass/volume ] in Serum or Plasma [facility] Glucose [Mass/volume ] in Serum or Plasma [facility] Hematocrit [Volume F raction] of Blood [facility] Hematocrit [Volume F raction] of Blood [facility] Hemoglobin [Mass/vol ume] in Blood [facility] Hemoglobin [Mass/vol ume] in Blood [facility] IgA [Mass/volume] in Serum or Plasma [facility] IgG [Mass/volume] in Serum or Plasma [facility] IgM [Mass/volume] in Serum or Plasma [facility] [place]/lambda light c nat ratio [facility] Lambda light chains. free [Mass/volume] in Serum or Plasma [facility] Lamotrigine measurement [facility] Leukocytes [#/volume ] in Blood [facility] Leukocytes [#/volume ] in Blood [facility] Low density lipoprot ein cholesterol measurement [facility] Mean corpuscular hem oglobin concentration determination [facility] Mean corpuscular hem oglobin concentration determination [facility] Mean corpuscular hem oglobin determination [facility] Mean corpuscular hem oglobin determination [facility] Measurement of renal function [facility] Measurement of renal function [facility] MR Cervical spine [facility] MR Lumbar spine [facility] Neutrophil count [facility] Neutrophil percent differential count [facility] Patient Education [facility] Work Phone: Patient referral [facility] Work Phone: Platelets [#/volume] in Blood [facility] Platelets [#/volume] in Blood [facility] Potassium [Moles/vol ume] in Serum or Plasma [facility] Potassium measurement [facility] Protein electrophore sis panel - Serum or Plasma [facility] Red blood cell count [facility] Red blood cell count [facility] Red cell distributio n width determination [facility] Red cell distributio n width determination [facility] Serum chloride measurement [facility] Serum protein electrophoresis [facility] Sodium [Moles/volume ] in Serum or Plasma [facility] Sodium measurement [facility] Total cholesterol:HD L ratio measurement [facility] Triglycerides measurement [facility] Triglycerides measurement [facility] Troponin T.cardiac [Mass/volume] in Serum or Plasma by High sensitivity method [facility] Troponin T.cardiac [Mass/volume] in Serum or Plasma by High sensitivity method [facility] Urea nitrogen [Mass/ volume] in Serum or Plasma [facility] Urea nitrogen [Mass/ volume] in Serum or Plasma [facility] Urine culture Urine Culture [facility] Urine kappa light ch ain measurement [facility] US Carotid arteries [facility] VLDL cholesterol measurement [facility] VLDL cholesterol measurement [facility] Immunizations Immunization Date Immunization Notes Care Provider [facility]2020 Covid (Moderna) Dr. Rosemary mixon Work Phone: [facility] 05-05-2020 Covid (Moderna) Dr. Rosemary mixon Work Phone: [facility] 04-27-2019 influenza, high dose seasonal, preservative-free Jo Perez [facility] 01-05-2018 influenza, high dose seasonal, preservative-free Jo Perez [facility] 12-12-2014 influenza, seasonal, injectable Jo Perez [facility] 06-15-2014 pneumococcal conjuga te vaccine, 13 valent Jo Perez [facility] 12-06-2013 influenza, seasonal, injectable Jo Lamasski [facility] 07-19-2013 tetanus and diphther ia toxoids, adsorbed, preservative free, for adult use (2 Lf of tetanus toxoid and 2 Lf of diphtheria toxoid) Alljonh Jeanmarienéstorkaron [facility] 01-25-2013 influenza, seasonal, injectable Jo Jeanmarienéstorladariusdonna [facility] 01-13-2012 influenza, seasonal, injectable Jo Jeanmarienéstorkaron [facility] 02-11-2011 influenza, seasonal, injectable Jo Jeanmarienéstorkaron [facility] 10-10-2010 zoster vaccine, live Jo Martinez [facility] 03-31-2006 pneumococcal polysaccharide vaccine, 23 valent Alljonh Rashida [facility] Payers Date Payer Category Payer Self-pay [id number] 2023 Medicare [employer] UHC AARP MEDICARE ADVANTAGE [id number] 2023-Present [phone] [address] [address] [place] [address] Medicare HMO [id number] [id number] 2023 Unknown [id number] 2005 Unknown [id number] 1.2.840.986142.1.13.159.2.7.3 .668692.315 1935 Unknown [id number] 2.16.840.1.591806.3.579.2.278 1935 Unknown [id number] 2.16.840.1.438189.3.579.2.278 1935 Unknown [id number] 2.16.840.1.633082.3.579.2.278 1935 Unknown [id number] 2.16.840.1.607509.3.579.2.278 1935 Unknown [id number] 2.16.840.1.757589.3.579.2.278 1935 Unknown [id number] 2.16840.1.870336.3.579.2.278 1935 Unknown [id number] 2.16840.1.505298.3.579.2.278 Medicare MEDICARE PART A B [id number] Unknown [id number] Unknown [id number] 2.16840.1.075404.3.579.2.462 Unknown [id number] 2.840.1.930455.3.579.2.462 Unknown [id number] 2.840.1.082080.3.579.2.462 Unknown [id number] 2.840.1.377737.3.579.2.462 Unknown [id number] 2.840.1.532382.3.579.2.462 Unknown [id number] 2.840.1.561628.3.579.2.462 Unknown [id number] 2.840.1.195115.3.579.2.462 Unknown [id number] 2.840.1.058984.3.579.2.462 Unknown [id number] 2.840.1.222296.3.579.2.462 Unknown [id number] 2.840.1.565325.3.579.2.462 Unknown [id number] 2.840.1.507539.3.579.2.462 Unknown [id number] 2.16840.1.092190.3.579.2.462 Unknown [id number] 2.840.1.685589.3.579.2.462 Unknown [id number] 2.840.1.438765.3.579.2.462 Unknown [id number] 2.16.840.1.466841.3.579.2.462 Unknown [id number] 2.840.1.776454.3.579.2.462 Unknown [id number] 2.16.840.1.076113.3.579.2.462 Unknown [id number] 2.840.1.005877.3.579.2.462 Unknown [id number] 2.840.1.352115.3.579.2.462 Unknown [id number] 2.840.1.966254.3.579.2.462 Unknown [id number] 2.840.1.431808.3.579.2.462 Unknown [id number] 2.840.1.733967.3.579.2.462 Unknown [id number] 2.840.1.908008.3.579.2.462 Unknown [id number] 2.840.1.603637.3.579.2.462 Unknown [id number] 2.840.1.119682.3.579.2.462 Unknown [id number] 2.840.1.203771.3.579.2.462 Unknown [id number] 2.840.1.981289.3.579.2.462 Unknown [id number] 2.840.1.694875.3.579.2.462 Unknown [id number] 2.840.1.821000.3.579.2.462 Unknown [id number] 2.840.1.689452.3.579.2.462 Unknown [id number] 2.16840.1.618650.3.579.2.462 Unknown [id number] 2.840.1.453653.3.579.2.462 Unknown [id number] 2.840.1.180515.3.579.2.462 Unknown [id number] 2.16.840.1.277096.3.579.2.462 Unknown [id number] 2.16.840.1.361666.3.579.2.462 Unknown [id number] 2.16.840.1.218971.3.579.2.462 Unknown [id number] 2.16.840.1.624947.3.579.2.462 Unknown [id number] 2.16.840.1.005533.3.579.2.462 Unknown [id number] 2.16.840.1.274794.3.579.2.462 Unknown [id number] 2.16.840.1.207883.3.579.2.462 Unknown [id number] 2.16.840.1.055864.3.579.2.462 Unknown [id number] 2.16.840.1.182119.3.579.2.462 Unknown [id number] 2.16.840.1.512740.3.579.2.462 Social History Date Type Detail Facility Start: 05-13-2019 End: 09-11-2024 Tobacco smoking status NHIS Former smoker [facility] End: 03-20-2008 History of tobacco use Current smoker [facility] End: 03-20-2008 History of tobacco use Cigarette Smoker [facility] Start: 05-13-2019 End: 06-17-2023 Cigarettes smoked current (pack per day) - Reported [facility] Start: 05-13-2019 End: 06-18-2023 Tobacco use and exposure Never used [facility] Start: 05-13-2019 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 (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) [facility] Start: 1935 Sex Assigned At Not on file [facility] Exposure to SARS-CoV -2 (event) Not sure [facility] Start: 02-11-2022 End: 06-16-2023 Tobacco smoking status MTIS Unknown if ever smoked [facility] Start: 04-19-2020 Rare [facility] Start: 04-19-2020 None [facility] Start: 04-19-2020 Spouse/ Signif icant Other [facility] Start: 08-11-2020 Non-smoker [facility] Start: 1935 Sex Assigned At Female [facility] Start: 06-18-2023 Tobacco smoking stat us NHIS Never smoked tobacco [facility] Start: 06-17-2023 End: 06-18-2023 [facility] ip[employer]access Has the [employer], or [employer] threatened to shut off services in your home in past 12Mo No [facility] How often to you hav e a drink containing alcohol? Never [facility] How many standard drinks containing alcohol do you have on a typical day? Patient does not drink [facility] (I/We) worried wheth er (my/our) food would run out before (I/we) got money to buy more. Never true [employer]access Start: 06-04-2024 End: 07-20-2024 Sex Female (finding) [facility] Medical Equipment Procedure Code Equipment Code [...] CLOVIS KYPHO AUTOPLEX FDA Start: 06-21-2020 Kyphoplasty CLOIVS KYPHO AUTOPLEX FDA Start: 06-21-2020 Kyphoplasty CLOVIS [...] instructed Bio Chips Cancellous 30cc 1-8 - [id number] - [id number] Start: 06-18-2023 Plate Hum Dist 2.7/3.5 83953_imp Start: 06-18-2023 Plate Va Olcrn 2.7/3.5 2h R - [id number] Start: 06-18-2023 Plate Va M-D-Hum 2.7/3.5 1h L - [id number] Start: 06-18-2023 Screw Lck Va 2.8i46w-P T8 Rcs - [id number] Start: 06-18-2023 Screw Lck Va 2.7x58 S-T T8 Rcs - [id number]_imp Start: 06-18-2023 Screw Lck Va 2.6n53r-O T8 Rcs - [id number]_imp Start: 06-18-2023 Screw Lck Va 2.1a61y-T T8 Rcs - [id number]_imp Start: 06-18-2023 Screw Lck Va 2.3e83l-I T8 Rcs - [id number]_[id number] Start: 06-18-2023 Screw Lck Va 2.7x50 S-T T8 Rcs - [id number]_imp Start: 06-18-2023 Screw Crtx 3.5x22mm S-T - [id number] Start: 06-18-2023 Screw Crtx 3.5x26mm S-T - [id number] Start: 06-18-2023 Screw Lck Va 2.6m09p-W T8 Rcs - [id number]_imp Start: 06-18-2023 Screw Lck Va 2.7p15r-C T8 Rcs - [id number]_imp Start: 06-18-2023 Screw Lck Va 2.7x56 S-T T8 Rcs - [id number]_imp Start: 06-18-2023 Screw Crtx 3.5x28mm S-T - [id number]_imp Start: 06-18-2023 Screw Crtx 3.5x30mm S-T - [id number]_imp Start: 06-18-2023 Screw Lck Va 2.2t05u-I T8 Rcs - [id number] 83959_imp Start: 06-18-2023 Screw Lck Va 2.9o96j-E T8 Rcs - [id number] 83961_imp Start: 06-18-2023 Goals Date Patient Goal Desired Activity /State Functional Status Date Assessment Result Facility 09-11-2024 Functional status Ambulates [facility] Work Phone: 12-28-2022 Functional status Ambulates [facility] Work Phone: 11-15-2022 Functional status Chair [facility] Work Phone: Mental Status Date Assessment Result Facility 09-11-2024 Cognitive function Voice/Name [facility] Work Phone: 09-10-2024 Cognitive function Voice/Name [facility] Work Phone: 09-08-2024 Cognitive function Voice/Name [facility] Work Phone: 12-28-2022 Cognitive function Voice/Name [facility] Work Phone: 11-18-2022 Cognitive function Level Of Cons ciousness Awake;Alert;Appropriate [facility] Work Phone: 11-15-2022 Cognitive function Appropriate;Cooperativ e [facility] Work Phone: 11-14-2022 Cognitive function Voice/Name [facility] Work Phone: 11-14-2022 Cognitive function Voice/Name [facility] Work Phone: 09-08-2022 Cognitive function Awake;Alert;A ppropriate;Follow s Commands [facility] Work Phone: 02-11-2022 Cognitive function Awake;Alert;Appropriat e [facility] Work Phone: Clinical Notes 02-14-2007 to 09-11-2024 Note Date & Type Note Facility 09-11-2024 Discharge summary [facility] 09-11-2024 Procedure note [facility] 09-11-2024 Discharge summary [facility] 09-11-2024 Discharge summary Note Date/Time September 11, 2024 2:40pm [facility] Medical Records Department [address] [place] [address] Instructions for Home/Discharge Instructions 09/11/24 1214 MR#: [id number] Acct: [id number] Name: EZRA GONZALEZ Rep #:[id number] : 1935 89 From: Matthew carbajal DO PCP: Dr. Chucky Ochoa, Status:ADM [facility] Discharge Instructions Diet Discharge Diet: No restrictions DC O2, CPAP, BIPAP needs Home O2 Discharge instructions: No Dressing / Incision Discharge Activity: No Restrictions Follow Up Care Test Results: Test results from this visit will be discussed in further detail at your follow-up appointment, if applicable. Discharge Plan Admission Admit Date/Time: 09/10/24 16:03 Primary Reason for Your Visit: slurred speech Attending Provider: Matthew Oro Primary Care Provider: Chucky Ochoa Consulting Providers: Olivia Trinidad; Janett French; Julia Carpenter; Keyshawn Swan; Dmitriy Diop; Meagan Edmondson; MAMADOU HICKS; Cara Batista; Lorelei Pruett; Robinson Mayorga; Aura Thurman; Eric Crowell; Camila Mitchell; Glenna Jacobson; Lenin Tamez; Ml Morris; Chauncey Vaughn; Nirmal Hummel; Rubén Michel; Iggy Graves; Liz Merrill; Bala Perez; Castillo Jones; Daniel Leroy; Cindy Horn; Ashu Leonard Discharge Orders/Prescriptions Prescriptions: Continued multivitamin Capsule 1 cap PO DAILY atorvastatin 40 mg tablet 40 mg PO QHS ascorbic acid (vitamin C) 250 mg tablet 250 mg PO DAILY diphenhydramine HCl [Allergy (diphenhydramine)] 25 mg tablet 25 mg PO QHS PRN (Reason: allergy symptoms) donepezil 10 mg tablet 10 mg PO QHS Qty: 30 9RF lamotrigine 25 mg tablet 50 mg PO BID Qty: 120 9RF omeprazole 20 mg capsule,delayed release(DR/EC) 20 mg PO DAILY ondansetron HCl 4 mg tablet 4 mg PO Q6H PRN (Reason: nausea and vomiting) warfarin 2 mg tablet 2 mg PO .QTUWEFR diclofenac sodium [Arthritis Pain (diclofenac)] 1 % gel 2 g topical BID calcium carbonate-vitamin D3 [Calcium 600 + D(3)] 600 mg-5 mcg (200 unit) tablet 2 tab PO DAILY irbesartan 300 mg tablet 300 mg PO DAILY acetaminophen [Tylenol Arthritis Pain] 650 mg tablet extended release 650 mg PO Q8H metoprolol succinate 50 mg tablet extended release 24 hr 50 mg PO DAILY warfarin 3 mg tablet 3 mg PO [...] Date: 08/18/24 Rx Instructions: or as directed Referrals / Follow Up: Chucky Ochoa DO [Primary Care Provider] - Disposition Disposition (needs filled in before D/C Order can be placed): Home, Self Care 09/11/24 1440<Electronically signed by Matthew Oro DO>Matthew Oro DO CC: Glenna Jacobson; Lorelei Pruett; Bala Perez; Janett French MD; Camila Mitchell MD; Eric Crowell MD; Julia Carpenter MD; Dr. Yogesh Hicks MD; Dr. Olivia Trinidad MD; Dr. Lenin Tamez MD; Dr. Ml Morris MD; Dr. Nirmal Hummel MD; Dr. Chauncey Vaughn MD; Dr. Dmitriy Diop MD; Dr. Rubén Michel DO; Dr. Liz Valdes MD; Dr. Iggy Graves MD; Dr. Castillo Jones MD; Dr. Chucky Ochoa DO; Dr. Daniel Leroy MD; Dr. Cindy Horn MD; Meagan Edmondson MD; Keyshawn Swan MD; Cara Batista DO; Robinson Mayorga MD; Aura Thurman DO; Ashu Leonard MD ~ Signed [facility] Work Phone: 1(279) 901-988806-14-2025 Discharge summary Author Matthew Oro [facility] Note Date/Time September 11, 2024 3:14 pm [facility] Medical Records Department [address] [place] [address] Discharge Summary 09/11/24 1214 MR#: [id number] Acct: [id number] Name: EZRA GONZALEZ Rep #:[id number] : 1935 89 From: Matthew Ramirez [facility] PCP: Dr. Chucky Ochoa DO Status:ADM MARIELOS Location: [place] [address] Providers Date of Admission: 09/10/24 Date of Discharge: 09/11/24 Primary Care Physician: Dr. Chucky Ochoa DO Consultations 09/10/24 17:16 Consult: Tele-Neurology Routine Consulting Provider: [facility] Reason for Consult: Acute Ischemic Stroke/TIA EMERGENT Consult: No MD Notified: Yes Date Notified: 09/10/24 Time Notified: 21:03 Method of Notification: Answering Service Nursing Unit Staff Notify [facility] of Tele-Neurology Consult: Yes Reason For Visit: STROKE VS SEIZURE Diagnosis Discharge Diagnosis (1) Difficulty with speech: Status: Acute Code(s): R47.9 - Unspecified speech disturbances Medications at Discharge Home Medications multivitamin 1 cap PO DAILY 12/10/19 omeprazole 20 mg capsule,delayed release 20 mg PO DAILY reflux 11/14/22 atorvastatin 40 mg tablet 40 mg PO QHS 01/20/23 ascorbic acid (vitamin C) 250 mg tablet 250 mg PO DAILY 05/19/23 diphenhydramine HCl 25 mg tablet (Allergy (diphenhydramine)) 25 mg PO QHS PRN allergy symptoms 05/19/23 warfarin 3 mg tablet 3 mg PO .QMOTHSASU #90 tabs 04/30/24 donepezil 10 mg tablet 10 mg PO QHS #30 tabs 05/10/24 lamotrigine 25 mg tablet 50 mg (2 x 25 mg) PO BID #120 tabs 05/10/24 acetaminophen 650 mg tablet,extended release (Tylenol Arthritis Pain) 650 mg PO Q8H 09/08/24 irbesartan 300 mg tablet 300 mg PO DAILY 09/08/24 metoprolol succinate 50 mg tablet,extended release 24 hr 50 mg PO DAILY 09/08/24 calcium 600 mg (as carbonate)-vitamin D3 5 mcg (200 unit) tablet (Calcium 600 + D(3)) 2 tab PO DAILY 09/10/24 diclofenac sodium 1 % topical gel (Arthritis Pain (diclofenac)) 2 g topical BID 09/10/24 ondansetron HCl 4 mg tablet 4 mg PO Q6H PRN nausea and vomiting 09/10/24 warfarin 2 mg tablet 2 mg PO .QTUWEFR 09/10/24 Hospital Course Operations None Procedures Electroencephalogram, EKG and - (CT brain, CTA head/neck, MRI brain) Summary of Care Provided Minutes Spent on Discharge: 35 Hospital Course: Patient is an 89-year-old female who presented to [facility] ED on 09/10/2024 with dysarthria. Short hospital course as noted below. Patient discharged back to assisted living in stable condition on 09/11. 1. Episode of dysarthria with history of seizures, concern for CVA versus breakthrough seizure ? Neurology followed. Episode of dysarthria that lasted about 30 minutes and resolved on its own. CT brain and CTA head/neck nonacute. MRI brain unremarkable. Follows with Dr. Juarez with neurology who has been concern for possible epileptic episodes. Notably was here 3 days prior to this admission and Lamictal level was sent but result remains pending on discharge. Routine EEG completed, read pending on discharge. Per neurology, suspected seizure versus TIA. Okay to continue Coumadin, statin and Lamictal on discharge with plan for close outpatient follow-up with Dr. Juarez. 2. Chronic debility with cognitive impairment ? PT/OT/case management followed. Lives at assisted living and has known history of cognitive impairment. Continue home donepezil. Stable for dischargeback to assisted living on 09/11. 3. History of CAD with stenting, hypertension, hyperlipidemia, longstanding persistent A-fib on Coumadin, carotid stenosis ? Continue home statin and Coumadin. INR therapeutic on admit. Held home beta- antonio and ARB on admit for permissive hypertension, okay to resume on discharge. 4. GERD ? Continue home PPI. Total clinical time spent by myself addressing the patient's medical issues, reviewing all the data, and collaborating with patient's care team: 35 minutes. Physical Exam Const alert, oriented x3, no apparent distress and average body habitus Constitutional Narrative: Pleasant elderly female, alert and oriented x 3 but with some tangential speech noted, otherwise sitting back comfortably in bed, conversing normally and in no acute distress. General Appearance: cooperative and comfortable HEENT normocephalic, head/scalp atraumatic, hearing grossly normal bilaterally, nasal mucous membranes and turbinates normal and moist oral mucous membranes Eyes PERRL, EOMs intact bilaterally and conjunctivae normal Neck full ROM Chest inspection of chest normal Resp normal respiratory effort, normal air movement, no use of accessory muscles and clear to auscultation bilaterally Cardio regular rate, regular rhythm, no murmurs and peripheral pulses 2+ throughout GI normal to inspection, nondistended, normoactive bowel sounds, soft to palpation,non-tender and non-distended Back/Spine normal ROM Extremity normal to inspection, full ROM and no pedal edema Skin no rashes or lesions noted Neuro CN's II-XII intact bilaterally, moves all extremities and no focal motor deficits Sensorium / Orientation: awake and alert Speech: speech normal Motor Exam: strength 5/5 throughout Psych mental status grossly normal Weight / BMI Weight Weight: 77.6 kg Body Mass Index (BMI) 30.3 ABG / Lab / Microbiology Data 09/11/24 05:52 09/11/24 05:52 Laboratory: Laboratory Results - last 24 hr 09/10/24 14:50: WBC 11.5 H, RBC 4.44, Hgb 13.6, Hct 41.7, MCV 93.9, MCH 30.6, MCHC 32.6, RDW Std Deviation 45.4 H, RDW Coeff of Sumeet 13.2, Plt Count 269, MPV 10.4, Immature Gran % (Auto) 0.400, Neut % (Auto) 72.3 H, Lymph % (Auto) 16.6 L,Island % (Auto) 9.1, Eos % (Auto) 1.2, Baso % (Auto) 0.4, Absolute Neuts (auto) 8.3 H, Absolute Lymphs (auto) 1.91, Nucleated RBC % 0, PT 26.4 H, INR 2.4, APTT 31.8, Sodium 137, Potassium 4.4, Chloride 103, Carbon Dioxide 21.8, Anion Gap 12, BUN 37 H, Creatinine 1.05, Estim Creat Clear Calc 33.63 L, Est GFR (MDRD) Non-Af 51 L, BUN/Creatinine Ratio 34.8 H, Glucose 131 H, Calcium 8.7, Troponin THigh Sens 18 H 09/10/24 15:03: Urine Color Straw, Urine Clarity Clear, Urine pH 5.0, Ur Specific [place] 1.010, Urine Protein 30 H, Urine Glucose (UA) Normal, Urine Ketones Negative, Urine Occult Blood Negative, Urine Nitrite Negative, Urine Bilirubin Negative, Urine Urobilinogen Normal, Ur Leukocyte Esterase 500 H, Urine RBC 0 SEEN, Urine WBC 10-25 SEEN, Ur Squamous Epith Cells 0-5 SEEN, Urine Bacteria RARE, Urine Mucus 0 SEEN 09/10/24 17:08: Troponin T Hi Sens 2 Hr 17 H 09/10/24 18:35: Troponin T Hi Sens 4Hr 15 H 09/11/24 05:52: WBC 12.2 H, RBC 4.33, Hgb 13.1, Hct 39.7, MCV 91.7, MCH 30.3, MCHC 33.0, RDW Std Deviation 42.8, RDW Coeff of Sumeet 12.8, Plt Count 271, MPV 10.7, Sodium 139, Potassium 4.4, Chloride 105, Carbon Dioxide 21.6, Anion Gap 12, BUN 28 H, Creatinine 0.91, Estim Creat Clear Calc 41.34 L, Est GFR (MDRD) Non-Af 61, BUN/Creatinine Ratio 30.4 H, Glucose 118 H, Calcium 8.8, Triglycerides 78, Cholesterol 172, LDL Cholesterol, Calc 100, VLDL Cholesterol 16, HDL Cholesterol 57, Cholesterol/HDL Ratio 3.03 Microbiology: Microbiology 09/10/24 15:03 Urine, Clean Catch Urine Culture - Preliminary GNR lactose cvir tech Radiography Diagnostic Testing: Radiology Impression Head/Neck CTA 09/10/24 13:55 IMPRESSION: Calcific plaque [...] 3:01 pm with readback verification. Reading Location: [id number] Brain MRI 09/10/24 16:07 IMPRESSION: Atrophy and mild microvascular changes Reading Location[facility] D/C Instructions DC O2, CPAP, BIPAP Needs Home O2 Discharge instructions: No Meaningful Use Info Meaningful Use Meaningful Use Diagnoses (Choose all that apply): None applicable Ischemic Stroke Statin Dosing Therapy Reference: STATIN DOSE THERAPY REFERENCE: * Patients > 75 years receive moderate or high dose statin therapy. * Patients 75 years or YOUNGER should receive HIGH intensity statin dose unless contraindicated. You will be required to document reason for non-treatment if statin daily dose does not meet guidelines. HIGH DOSE STATIN THERAPY DAILY Atorvastatin > than or = to 40 mg Rosuvastatin > than or = to 20 mg Amlodipine + Atorvastatin > than or = to 2.5/40 mg Ezetimibe + Simvastatin 10/80 mg Simvastatin 80mg Discharge Plan Admission Admit Date/Time: 09/10/24 16:03 Primary Reason for Your Visit: slurred speech Attending Provider: Matthew Oro Primary Care Provider: Chucky Ochoa Consulting Providers: Olivia Trinidad; Janett French; Julia Carpenter; Keyshawn Swan; Dmitriy Diop; Meagan Edmondson; MAMADOU HICKS; Cara Batista; Lorelei Pruett; Robinson Mayorga; Aura Thurman; Eric Crowell; Camila Mitchell; Glenna Jacobson; Lenin Tamez; Ml Morris; Chauncey Vaughn; Nirmal Hummel; Rubén Michel; Iggy Graves; Liz Merrill; Bala Perez; Castillo Jones; Daniel Leroy; Cindy Horn; Ashu Leonard Discharge Orders/Prescriptions Prescriptions: Continued multivitamin Capsule 1 cap PO DAILY atorvastatin 40 mg tablet 40 mg PO QHS ascorbic acid (vitamin C) 250 mg tablet 250 mg PO DAILY diphenhydramine HCl [Allergy (diphenhydramine)] 25 mg tablet 25 mg PO QHS PRN (Reason: allergy symptoms) donepezil 10 mg tablet 10 mg PO QHS Qty: 30 9RF lamotrigine 25 mg tablet 50 mg PO BID Qty: 120 9RF omeprazole 20 mg capsule,delayed release(DR/EC) 20 mg PO DAILY ondansetron HCl 4 mg tablet 4 mg PO Q6H PRN (Reason: nausea and vomiting) warfarin 2 mg tablet 2 mg PO .QTUWEFR diclofenac sodium [Arthritis Pain (diclofenac)] 1 % gel 2 g topical BID calcium carbonate-vitamin D3 [Calcium 600 + D(3)] 600 mg-5 mcg (200 unit) tablet 2 tab PO DAILY irbesartan 300 mg tablet 300 mg PO DAILY acetaminophen [Tylenol Arthritis Pain] 650 mg tablet extended release 650 mg PO Q8H metoprolol succinate 50 mg tablet extended release 24 hr 50 mg PO DAILY warfarin 3 mg tablet 3 mg PO [...] Date: 08/18/24 Rx Instructions: or as directed Referrals / Follow Up: Chucky Ochoa DO [Primary Care Provider] - Disposition Disposition (needs filled in before D/C Order can be placed): Home, Self Care Charges/Coding Visit Charges Inpatient E&M: 44705 Disch Hosp >30min 09/11/24 1444 <Electronically signed by Matthew Oro DO> Cosigner Signature (if applicable): CC: Dr. Matthew Oro DO; Dr. Chucky Ochoa DO~ Signed ADDENDUM by Dr. Matthew Oro DO on 09/11/24 at 1513 Addendum Notified by neurology that routine EEG is showing an epileptic focus in the lefttemporal region. Neurology recommended starting patient on Keppra 500 mg twice daily. Will send prescription for this now. 09/11/24 1513<Electronically signed by Matthew Oro DO> Cosigner Signature (if applicable): cc: Dr. Matthew Oro DO; Dr. Chucky Ochoa DO ~* Signed [facility] Work Phone: [phone] Progress note Author Lenin Tamez [facility] Note Date/Time September 11, 2024 10:4 1am [facility] Medical Records Department [address] [place] [address] Progress Note - Neurology 09/11/24 1035 MR#: [id number] Acct: [id number] Name: EZRA GONZALEZ Rep #:[id number] : 1935 89 From: Lenin Morle PCP: Dr. Chucky Ochoa DO Status:ADM MARIELOS Location: [place] [address] Assessment and Plan: Neuro Assessment/Plan Telestroke (Audio/Video Encounter) 89 y/o woman with h/o DM, HTN, Afib on coumadin (INR 2 days ago was 2.9 and 2.4 at [place]) and seizure on lamictal (had last GTC on Friday) p/w transient dysarthria. History is obtained from patient. On my exam, NIHSS-0 and patient reports feeling better. She follows with Dr. Juarez with neurology. CT head- no acute intracranial process. CTA- no LVO with b/l ICA 60% and diffuse narrowing of left HYDRODYNAMICIST. MRI brain - no acute stroke. LDL-100 Diagnosis: TIA Plan: Continue coumadin and statin. Check A1c. Follow up EEG. Continue lamictal.Follow up with neurology as an outpatient. 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 Sign off for now and please call us for any questions. I personally attended this patient and spent a total time of 35 minutes evaluating this patient including clinical assessment, review of chart, medical history imaging, and determining appropriate treatment and workup. Subject: Neurology Subjective 89 y/o woman with h/o DM, HTN, Afib on coumadin (INR 2 days ago was 2.9 and 2.4 at [place]) and seizure on lamictal (had last GTC on Friday) p/w transient dysarthria. History is obtained from patient. On my exam, NIHSS-0 and patient reports feeling better. She follows with Dr. Juarez with neurology. CT head- no acute intracranial process. CTA- no LVO with b/l ICA 60% and diffuse narrowing of left HYDRODYNAMICIST. MRI brain - no acute stroke. Today, she reports feeling better with NIHSS-0 EEG Results Procedure Details EEG Procedure Details: EZRA GONZALEZ is a 89 year old F with a past medical history of , who presents for evaluation of Electroencephalogram on DATE at TIME Objective Data Objective Data Vital Signs: Vital Signs Temp Pulse Resp BP Pulse Ox O2 Del Method 97.8 F 84 18 174/85 H 98 Room Air 09/11/24 09:09 09/11/24 09:09 09/11/24 09:09 09/11/24 09:09 09/11/24 09:09 09/11/24 09:09 Oxygen Delivery Method Room Air Weight: 77.6 kg Body Mass Index (BMI) 30.3 Intake & Output: Intake and Output for Last 24 Hours 09/09/24 09/10/24 09/11/24 23:59 23:59 23:59 Intake Total 400 / 400 Balance 400 / 400 Lab / Micro Data 09/11/24 05:52 09/11/24 05:52 Labs: Laboratory Results - last 24 hr 09/10/24 14:50: WBC 11.5 H, RBC 4.44, Hgb 13.6, Hct 41.7, MCV 93.9, MCH 30.6, MCHC 32.6, RDW Std Deviation 45.4 H, RDW Coeff of Sumeet 13.2, Plt Count 269, MPV 10.4, Immature Gran % (Auto) 0.400, Neut % (Auto) 72.3 H, Lymph % (Auto) 16.6 L,Island % (Auto) 9.1, Eos % (Auto) 1.2, Baso % (Auto) 0.4, Absolute Neuts (auto) 8.3 H, Absolute Lymphs (auto) 1.91, Nucleated RBC % 0, PT 26.4 H, INR 2.4, APTT 31.8, Sodium 137, Potassium 4.4, Chloride 103, Carbon Dioxide 21.8, Anion Gap 12, BUN 37 H, Creatinine 1.05, Estim Creat Clear Calc 33.63 L, Est GFR (MDRD) Non-Af 51 L, BUN/Creatinine Ratio 34.8 H, Glucose 131 H, Calcium 8.7, Troponin THigh Sens 18 H 09/10/24 15:03: Urine Color Straw, Urine Clarity Clear, Urine pH 5.0, Ur Specific [place] 1.010, Urine Protein 30 H, Urine Glucose (UA) Normal, Urine Ketones Negative, Urine Occult Blood Negative, Urine Nitrite Negative, Urine Bilirubin Negative, Urine Urobilinogen Normal, Ur Leukocyte Esterase 500 H, Urine RBC 0 SEEN, Urine WBC 10-25 SEEN, Ur Squamous Epith Cells 0-5 SEEN, Urine Bacteria RARE, Urine Mucus 0 SEEN 09/10/24 17:08: Troponin T Hi Sens 2 Hr 17 H 09/10/24 18:35: Troponin T Hi Sens 4Hr 15 H 09/11/24 05:52: WBC 12.2 H, RBC 4.33, Hgb 13.1, Hct 39.7, MCV 91.7, MCH 30.3, MCHC 33.0, RDW Std Deviation 42.8, RDW Coeff of Sumeet 12.8, Plt Count 271, MPV 10.7, Sodium 139, Potassium 4.4, Chloride 105, Carbon Dioxide 21.6, Anion Gap 12, BUN 28 H, Creatinine 0.91, Estim Creat Clear Calc 41.34 L, Est GFR (MDRD) Non-Af 61, BUN/Creatinine Ratio 30.4 H, Glucose 118 H, Calcium 8.8, Triglycerides 78, Cholesterol 172, LDL Cholesterol, Calc 100, VLDL Cholesterol 16, HDL Cholesterol 57, Cholesterol/HDL Ratio 3.03 Micro: Microbiology 09/10/24 15:03 Urine, Clean Catch Urine Culture - Preliminary GNR lactose cvir tech Radiography Diagnostic Testing: Radiology Impression Brain CT 09/10/24 13:55 IMPRESSION: CHRONIC CHANGES. NO ACUTE FINDINGS. Red Alert: Chronic changes. The critical information above was relayed directly by me by telephone to Teri Garcia on 09/10/2024 at 2:05 pm with readback verification. Reading Location: [facility] Head/Neck CTA 09/10/24 13:55 IMPRESSION: Calcific plaque [...] pm with readback verification. Reading Location: [facility] Brain MRI 09/10/24 16:07 IMPRESSION: Atrophy and mild microvascular changes Reading Location: [facility] Rhythm Strip Rhythm Strip: A-fib Rate: 75 Ectopy: None Physical Exam Narrative General: The patient appears nutritionally appropriate, well-groomed, and appears comfortable in no acute distress. Mental Status:? The patient?s mental status was normal including orientation.? Language was intact.? Cranial nerves:?Visual pulido full, and extra-ocular motion was intact. Symmetric face. Motor: Normal strength in all extremities. Sensation: Intact to touch in all extremities.? Coordination:? Bilateral finger to nose was normal.? There was no dysmetria. Gait:? deferred. NIHSS NIHSS Nursing Documentation NIHSS Nursing Documentation: NIHSS: Ischemic Stroke/TIA Start: 09/10/24 17:16 Text: For PCU Patients: NIH and Neuro Check every 4 Status: Active hours, PRN and with change in RN caregiver. Freq: [id number] Protocol: Activity Type Activity Date Activity User E-sign Co-sign Detail Recorded Client Recorded Date Recorded By Document 09/11/24 09:08 YOVANY [id number] 09/11/24 09:08 YOVANY 09/11/24 09:08 NIH Stroke Scale [NIHSS] A score of 0 is normal or asymptomatic . Total possible score is 42. Inpatient: RN or Physician to activate a stroke alert for onset of new stroke symptoms or with NIHSS increase >/= 3 points. Following change in neurological status, NIHSS will be performed per physician order or more frequently PRN. -1a. Level of Consciousness 0 - Alert; keenly responsive -1b. LOC Questions 0 - Answers BOTH questions correctly -1c. LOC Commands 0 - Performs BOTH tasks correctly -2. Best Gaze 0 - Normal -3. Visual 0 - No visual loss -4. Facial Palsy 0 - Normal symmetrical movements -5a. Left Arm 0 - No drift; arm holds 90 ( or 45) degrees for full 10 seconds -5b. Right Arm 0 - No drift; arm holds 90 ( or 45) degrees for full 10 seconds -6a. Left Leg 0 - No drift; leg holds 30- degree position for full 5 seconds -6b. Right Leg 0 - No drift; leg holds 30- degree position for full 5 seconds -7. Limb Ataxia 0 - Absent -8. Sensory 0 - Normal; no sensory loss -9. Best Language 0 - No aphasia; normal -10. Dysarthria 0 - Normal -11. Extinction and Inattention 0 - No abnormality -Total 0 Query Text:A score of 0 is normal or asymptomatic. Total possible score is 42 . ED: Notify Physician for NIHSS increase by > / = 3 points. Inpatient: RN or Physician to activate a stroke alert for NIHSS increase of > / = 3 points. Coma Scale [Assess] -Eye Opening Spontaneous -Motor Obeys Commands -Verbal Oriented [Total] -Coma Scale Total 15 NIHSS 1a. Level of Consciousness: 0 - [...] 0 - No aphasia; normal 10. Dysarthria: 0 - Normal 11. Extinction and Inattention: 0 - No abnormality Total: 0 09/11/24 1041 <Electronically signed by Lenin Tamez MD> Cosigner Signature (if applicable): CC: ~ Signed [facility] Work Phone: [phone] [facility] Medical Records Department [address] [place] [address] Discharge Summary 09/11/24 1214 MR#: [id number] Acct: [id number] Name: EZRA GONZALEZ Rep #: [id number] : 1935 89 From: Matthew Oro DO PCP: Dr. Chucky Ochoa DO Status:ADM MARIELOS Location: [place] [address] Providers Date of Admission: 09/10/24 Date of Discharge: 09/11/24 Primary Care Physician: Dr. Chucky Ochoa DO Consultations 09/10/24 17:16 Consult: Tele-Neurology Routine Consulting Provider: [facility] Reason for Consult: Acute Ischemic Stroke/TIA EMERGENT Consult: No MD Notified: Yes Date Notified: 09/10/24 Time Notified: 21:03 Method of Notification: Answering Service Nursing Unit Staff Notify [facility] of Tele-Neurology Consult: Yes Reason For Visit: STROKE VS SEIZURE Diagnosis Discharge Diagnosis (1) Difficulty with speech: Status: Acute Code(s): R47.9 - Unspecified speech disturbances Medications at Discharge Home Medications multivitamin 1 cap PO DAILY 12/10/19 omeprazole 20 mg capsule,delayed release 20 mg PO DAILY reflux 11/14/22 atorvastatin 40 mg tablet 40 mg PO QHS 01/20/23 ascorbic acid (vitamin C) 250 mg tablet 250 mg PO DAILY 05/19/23 diphenhydramine HCl 25 mg tablet (Allergy (diphenhydramine)) 25 mg PO QHS PRN allergy symptoms 05/19/23 warfarin 3 mg tablet 3 mg PO .QMOTHSASU #90 tabs 04/30/24 donepezil 10 mg tablet 10 mg PO QHS #30 tabs 05/10/24 lamotrigine 25 mg tablet 50 mg (2 x 25 mg) PO BID #120 tabs 05/10/24 acetaminophen 650 mg tablet,extended release (Tylenol Arthritis Pain) 650 mg PO Q8H 09/08/24 irbesartan 300 mg tablet 300 mg PO DAILY 09/08/24 metoprolol succinate 50 mg tablet,extended release 24 hr 50 mg PO DAILY 09/08/24 calcium 600 mg (as carbonate)-vitamin D3 5 mcg (200 unit) tablet (Calcium 600 + D(3)) 2 tab PO DAILY 09/10/24 diclofenac sodium 1 % topical gel (Arthritis Pain (diclofenac)) 2 g topical BID 09/10/24 ondansetron HCl 4 mg tablet 4 mg PO Q6H PRN nausea and vomiting 09/10/24 warfarin 2 mg tablet 2 mg PO .QTUWEFR 09/10/24 Hospital Course Operations None Procedures Electroencephalogram, EKG and - (CT brain, CTA head/neck, MRI brain) Summary of Care Provided Minutes Spent on Discharge: 35 Hospital Course: Patient is an 89-year-old female who presented to [facility] ED on 09/10/2024 with dysarthria. Short hospital course as noted below. Patient discharged back to assisted living in stable condition on 09/11. 1. Episode of dysarthria with history of seizures, concern for CVA versus breakthrough seizure ??? Neurology followed. Episode of dysarthria that lasted about 30 minutes and resolved on its own. CT brain and CTA head/neck nonacute. MRI brain unremarkable. Follows with Dr. Juarez with neurology who has been concern for possible epileptic episodes. Notably was here 3 days prior to this admission and Lamictal level was sent but result remains pending on discharge. Routine EEG completed, read pending on discharge. Per neurology, suspected seizure versus TIA. Okay to continue Coumadin, statin and Lamictal on discharge with plan for close outpatient follow-up with Dr. Juarez. 2. Chronic debility with cognitive impairment ??? PT/OT/case management followed. Lives at assisted living and has known history of cognitive impairment. Continue home donepezil. Stable for discharge back to assisted living on 09/11. 3. History of CAD with stenting, hypertension, hyperlipidemia, longstanding persistent A-fib on Coumadin, carotid stenosis ??? Continue home statin and Coumadin. INR therapeutic on admit. Held home beta- antonio and ARB on admit for permissive hypertension, okay to resume on discharge. 4. GERD ??? Continue home PPI. Total clinical time spent by myself addressing the patient's medical issues, reviewing all the data, and collaborating with patient's care team: 35 minutes. Physical Exam Const alert, oriented x3, no apparent distress and average body habitus Constitutional Narrative: Pleasant elderly female, alert and oriented x 3 but with some tangential speech noted, otherwise sitting back comfortably in bed, conversing normally and in no acute distress. General Appearance: cooperative and comfortable HEENT normocephalic, head/scalp atraumatic, hearing grossly normal bilaterally, nasal mucous membranes and turbinates normal and moist oral mucous membranes Eyes PERRL, EOMs intact bilaterally and conjunctivae normal Neck full ROM Chest inspection of chest normal Resp normal respiratory effort, normal air movement, no use of accessory muscles and clear to auscultation bilaterally Cardio regular rate, regular rhythm, no murmurs and peripheral pulses 2+ throughout GI normal to inspection, nondistended, normoactive bowel sounds, soft to palpation, non-tender and non- distended Anastasia (more content not included)...[facility]06-14-2025 Progress note [facility] Medical Records Department [address] [place] [address] Progress Note - Neurology 09/11/24 1035 MR#: [id number] Acct: [id number] Name: EZRA GONZALEZ Rep #:[id number] : 1935 89 From: Lenin Morel PCP: Dr. Chucky Ochoa, DO Status:ADM MARIELOS Location: [place] [address] Assessment and Plan: Neuro Assessment/Plan Telestroke (Audio/Video Encounter) 89 y/o woman with h/o DM, HTN, Afib on coumadin (INR 2 days ago was 2.9 and 2.4 at [place]) and seizure on lamictal (had last GTC on Friday) p/w transient dysarthria. History is obtained from patient. On my exam, NIHSS-0 and patient reports feeling better. She follows with Dr. Juarez with neurology. CT head- no acute intracranial process. CTA- no LVO with b/l ICA 60% and diffuse narrowing of left HYDRODYNAMICIST. MRI brain - no acute stroke. LDL-100 Diagnosis: TIA Plan: Continue coumadin and statin. Check A1c. Follow up EEG. Continue lamictal.Follow up with neurology as an outpatient. 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 Sign off for now and please call us for any questions. I personally attended this patient and spent a total time of 35 minutes evaluating this patient including clinical assessment, review of chart, medical history imaging, and determining appropriate treatment and workup. Subject: Neurology Subjective 89 y/o woman with h/o DM, HTN, Afib on coumadin (INR 2 days ago was 2.9 and 2.4 at [place]) and seizure on lamictal (had last GTC on Friday) p/w transient dysarthria. History is obtained from patient. On my exam, NIHSS-0 and patient reports feeling better. She follows with Dr. Juarez with neurology. CT head- no acute intracranial process. CTA- no LVO with b/l ICA 60% and diffuse narrowing of left HYDRODYNAMICIST. MRI brain - no acute stroke. Today, she reports feeling better with NIHSS-0 EEG Results Procedure Details EEG Procedure Details: EZRA GONZALEZ is a 89 year old F with a past medical history of , who presents for evaluation of Electroencephalogram on DATE at TIME Objective Data Objective Data Vital Signs: Vital Signs Temp Pulse Resp BP Pulse Ox O2 Del Method 97.8 F 84 18 174/85 H 98 Room Air 09/11/24 09:09 09/11/24 09:09 09/11/24 09:09 09/11/24 09:09 09/11/24 09:09 09/11/24 09:09 Oxygen Delivery Method Room Air Weight: 77.6 kg Body Mass Index (BMI) 30.3 Intake & Output: Intake and Output for Last 24 Hours 09/09/24 09/10/24 09/11/24 23:59 23:59 23:59 Intake Total 400 / 400 Balance 400 / 400 Lab / Micro Data 09/11/24 05:52 09/11/24 05:52 Labs: Laboratory Results - last 24 hr 09/10/24 14:50: WBC 11.5 H, RBC 4.44, Hgb 13.6, Hct 41.7, MCV 93.9, MCH 30.6, MCHC 32.6, RDW Std Deviation 45.4 H, RDW Coeff of Sumeet 13.2, Plt Count 269, MPV 10.4, Immature Gran % (Auto) 0.400, Neut %(Auto) 72.3 H, Lymph % (Auto) 16.6 L,Island % (Auto) 9.1, Eos % (Auto) 1.2, Baso % (Auto) 0.4, Absolute Neuts (auto) 8.3 H, Absolute Lymphs (auto) 1.91, Nucleated RBC % 0, PT 26.4 H, INR 2.4, APTT 31.8, Sodium 137, Potassium 4.4, Chloride 103, Carbon Dioxide 21.8, Anion Gap 12, BUN 37 H, Creatinine 1.05, Estim Creat Clear Calc 33.63 L, Est GFR (MDRD) Non-Af 51 L, BUN/Creatinine Ratio 34.8 H, Glucose 131 H, Calcium 8.7, Troponin THigh Sens 18 H 09/10/24 15:03: Urine Color Straw, Urine Clarity Clear, Urine pH 5.0, Ur Specific [place] 1.010, Urine Protein 30 H, Urine Glucose (UA) Normal, Urine Ketones Negative, Urine Occult Blood Negative, Urine Nitrite Negative, Urine Bilirubin Negative, Urine Urobilinogen Normal, Ur Leukocyte Esterase 500H, Urine RBC 0 SEEN, Urine WBC 10-25 SEEN, Ur Squamous Epith Cells 0-5 SEEN, Urine Bacteria RARE, Urine Mucus 0 SEEN 09/10/24 17:08: Troponin T Hi Sens 2 Hr 17 H 09/10/24 18:35: Troponin T Hi Sens 4Hr 15 H 09/11/24 05:52: WBC 12.2 H, RBC 4.33, Hgb 13.1, Hct 39.7, MCV 91.7, MCH 30.3, MCHC 33.0, RDW Std Deviation 42.8, RDW Coeff of Sumeet 12.8, Plt Count 271, MPV 10.7, Sodium 139, Potassium 4.4, Chloride 105, Carbon Dioxide 21.6, Anion Gap 12, BUN 28 H, Creatinine 0.91, Estim Creat Clear Calc 41.34 L, EstGFR (MDRD) Non-Af 61, BUN/Creatinine Ratio 30.4 H, Glucose 118 H, Calcium 8.8, Triglycerides 78, Cholesterol 172, LDL Cholesterol, Calc 100, VLDL Cholesterol 16, HDL Cholesterol 57, Cholesterol/HDL Ratio 3.03 Micro: Microbiology 09/10/24 15:03 Urine, Clean Catch Urine Culture - Preliminary GNR lactose cvir tech Radiography Diagnostic Testing: Radiology Impression Brain CT 09/10/24 13:55 IMPRESSION: CHRONIC CHANGES. NO ACUTE FINDINGS. Red Alert: Chronic changes. The critical information above was relayed directly by me by telephone to Teri Garcia on 09/10/2024 at 2:05 pm with readback verification. Reading Location: [facility] Head/Neck CTA 09/10/24 13:55 IMPRESSION: Calcific plaque [...] pm with readback verification. Reading Location: [facility] Brain MRI 09/10/24 16:07 IMPRESSION: Atrophy and mild microvascular changes Reading Location: [facility] Rhythm Strip Rhythm Strip: A-fib Rate: 75 Ectopy: None Physical Exam Narrative General: The patient appears nutritionally appropriate, well-groomed, and appears comfortable in noacute distress. Mental Status:? The patient?s mental status was normal including orientation.? Language was intact.? Cranial nerves:?Visual pulido full, and extra-ocular motion was intact. Symmetric face. Motor: Normal strength in all extremities. Sensation: Intact to touch in all extremities.? Coordination:? Bilateral finger to nose was normal.? There was no dysmetria. Gait:? deferred. NIHSS NIHSS Nursing Documentation NIHSS Nursing Documentation: NIHSS: Ischemic Stroke/TIA Start: 09/10/24 17:16 Text: For PCU Patients: NIH and Neuro Check every 4 Status: Active hours, PRN and with change in RN caregiver. Freq: [id number] Protocol: Activity Type Activity Date Activity User E-sign Co-sign Detail Recorded Client Recorded Date Recorded By Document 09/11/24 09:08 YOVANY [id number] 09/11/24 09:08 YOVANY 09/11/24 09:08 NIH Stroke Scale [NIHSS] A score of 0 is normal or asymptomatic . Total possible score is 42. Inpatient: RN or Physician to activate a stroke alert for onset of new stroke symptoms or with NIHSS increase >/= 3 points. Following change in neurological status, NIHSS will be performed per physician order or more frequently PRN. -1a. Level of Consciousness 0 - Alert; keenly responsive -1b. LOC Questions 0 - Answers BOTH questions correctly -1c. LOC Commands 0 - Performs BOTH tasks correctly -2. Best Gaze 0 - Normal -3. Visual 0 - No visual loss -4. Facial Palsy 0 - Normal symmetrical movements -5a. Left Arm 0 - No drift; arm holds 90 ( or 45) degrees for full 10 seconds -5b. Right Arm 0 - No drift; arm holds 90 ( or 45) degrees for full 10 seconds -6a. Left Leg 0 - No drift; leg holds 30- degree position for full 5 seconds -6b. Right Leg 0 - No drift; leg holds 30- degree position for full 5 seconds -7. Limb Ataxia 0 - Absent -8. Sensory 0 - Normal; no sensory loss -9. Best Language 0 - No aphasia; normal -10. Dysarthria 0 - Normal -11. Extinction and Inattention 0 - No abnormality -Total 0 Query Text:A score of 0 is normal or asymptomatic. Total possible score is 42 . ED: Notify Physician for NIHSS increase by > / = 3 points. Inpatient: RN or Physician to activate a stroke alert for NIHSS increase of > / = 3 points. Coma Scale [Assess] -Eye Opening Spontaneous -Motor Obeys Commands -Verbal Oriented [Total] -Coma Scale Total 15 NIHSS 1a. Level of Consciousness: 0 - [...] 0 - No aphasia; normal 10. Dysarthria: 0 - Normal 11. Extinction and Inattention: 0 - No abnormality Total: 0 09/11/24 1041 Cosigner Signature (if applicable): CC: ~ Signed [facility]06-13-2025 History and physical note Author Matthew Oro [facility] Note Date/Time September 10, 2024 5:27 pm [facility] Medical Records Department [address] [place] [address] H&P Exam - Hospitalist 09/10/24 1603 MR#: [id number] Acct: [id number] Name: EZRA GONZALEZ Rep #:[id number] : 1935 89 From: Matthew carbajal DO PCP: Dr. Chucky Ochoa, DO Status:ADM MARIELOS Location: [place] [address] HPI - General General Date of Admission: 09/10/24 Date of Service: 09/10/24 Chief Complaint: Dysarthria HPI Narrative EZRA GONZALEZ, is a 89 F who presented to [facility] ED on 09/10/2024 with dysarthria. Patient lives at assisted living at [facility]. Has history of seizures and is on Lamictal. She follows with Dr. Juarez with neurology. Developed acute onset dysarthria today at noon. Has apparently had similar episodes like this in the past and Dr. Juarez suspects that they may beepileptic episodes. Patient's speech returned to normal after about [address] brain was negative. CTA head/neck did show carotid stenosis but this was stable from previous. She notably is on Coumadin for A-fib and atorvastatin forhistory of CAD with stenting. INR was therapeutic on admission. On discussion with [facility] neurology, recommendation was for admission for MRI brain and routine EEG for further evaluation. Hospitalist was then contacted for admission. I saw the patient at bedside in the ED. She was sitting back comfortably in bed, in no acute distress. She had no dysarthria during our encounter. She does report feeling somewhat frustrated by these episodes and that there has not zoe clear reason given for them. She denies any other acute concerns at this time. 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) Persistent atrial fibrillation Chronic kidney disease (CKD) Spinal stenosis Osteoarthritis Atherosclerotic heart disease of [place] coronary artery without angina pectoris Type 2 [...] type: does not use caffeine: No ROS Constitutional Constitutional: Denies chills, fatigue, fever(s) or weakness Eyes Eyes: Denies change in vision Cardiovascular Cardiovascular: Denies chest pain Respiratory/Chest Respiratory/Chest: Denies shortness of breath at rest Gastrointestinal Gastrointestinal: Denies abdominal pain Musculoskeletal Musculoskeletal: Denies arthralgias or myalgias Neurologic Neurologic: Denies abnormal speech, confusion, dizziness, focal weakness, headache(s), numbness or tingling Vital Signs Vital Signs Vital Signs: 09/10/24 13:50 09/10/24 13:58 09/10/24 [...] Ox 97 Oxygen Delivery Method Room Air Weight Weight: 68.039 kg Body Mass Index (BMI) 26.5 Physical Exam Const alert, oriented x3, no apparent distress and average body habitus Constitutional Narrative: Pleasant elderly female, alert and oriented x 3 but with some tangential speech noted, otherwise sitting back comfortably in bed, conversing normally and in no acute distress. General Appearance: cooperative and comfortable HEENT normocephalic, head/scalp atraumatic, hearing grossly normal bilaterally, nasal mucous membranes and turbinates normal and moist oral mucous membranes Eyes PERRL, EOMs intact bilaterally and conjunctivae normal Neck full ROM Chest inspection of chest normal Resp normal respiratory effort, normal air movement, no use of accessory muscles and clear to auscultation bilaterally Cardio regular rate, regular rhythm, no murmurs and peripheral pulses 2+ throughout GI normal to inspection, nondistended, normoactive bowel sounds, soft to palpation,non-tender and non-distended Back/Spine normal ROM Extremity normal to inspection, full ROM and no pedal edema Skin no rashes or lesions noted Neuro CN's II-XII intact bilaterally, moves all extremities and no focal motor deficits Sensorium / Orientation: awake and alert Speech: speech normal Motor Exam: strength 5/5 throughout Psych mental status grossly normal Results Lab / Micro Data 09/10/24 14:50 09/10/24 14:50 Labs: Laboratory Results - last 24 hr 09/10/24 14:50: WBC 11.5 H, RBC 4.44, Hgb 13.6, Hct 41.7, MCV 93.9, MCH 30.6, MCHC 32.6, RDW Std Deviation 45.4 H, RDW Coeff of Sumeet 13.2, Plt Count 269, MPV 10.4, Immature Gran % (Auto) 0.400, Neut % (Auto) 72.3 H, Lymph % (Auto) 16.6 L,Island % (Auto) 9.1, Eos % (Auto) 1.2, Baso % (Auto) 0.4, Absolute Neuts (auto) 8.3 H, Absolute Lymphs (auto) 1.91, Nucleated RBC % 0, PT 26.4 H, INR 2.4, APTT 31.8, Sodium 137, Potassium 4.4, Chloride 103, Carbon Dioxide 21.8, Anion Gap 12, BUN 37 H, Creatinine 1.05, Estim Creat Clear Calc 33.63 L, Est GFR (MDRD) Non-Af 51 L, BUN/Creatinine Ratio 34.8 H, Glucose 131 H, Calcium 8.7, Troponin THigh Sens 18 H 09/10/24 15:03: Urine Color Straw, Urine Clarity Clear, Urine pH 5.0, Ur Specific [place] 1.010, Urine Protein 30 H, Urine Glucose (UA) Normal, Urine Ketones Negative, Urine Occult Blood Negative, Urine Nitrite Negative, Urine Bilirubin Negative, Urine Urobilinogen Normal, Ur Leukocyte Esterase 500 H, Urine RBC 0 SEEN, Urine WBC 10-25 SEEN, Ur Squamous Epith Cells 0-5 SEEN, Urine Bacteria RARE, Urine Mucus 0 SEEN Imaging Radiology Impression Brain CT 09/10/24 13:55 IMPRESSION: CHRONIC CHANGES. NO ACUTE FINDINGS. Red Alert: Chronic changes. The critical information above was relayed directly by me by telephone to Teri Garcia on 09/10/2024 at 2:05 pm with readback verification. Reading Location: [id number] Head/Neck CTA 09/10/24 13:55 IMPRESSION: Calcific plaque [...] 3:01 pm with readback verification. Reading Location: [id number] Assessment & Plan Assessment/Plan (1) Difficulty with speech: PLAN: Plan Patient is an 89-year-old female who presented to [facility] ED on 09/10/2024 with dysarthria. 1. Episode of dysarthria with history of seizures, concern for CVA versus breakthrough seizure ? Admit under observation status to PCU. Neurology consulted. Episode of dysarthria that lasted about 30 minutes and resolved on its own. CT brain and CTA head/neck nonacute. Follows with Dr. Juarez with neurology who has been concern for possible epileptic episodes. Notably was here 3 days ago and Lamictal level was sent but result is pending. Orders placed per stroke protocol order set. MRI brain and routine EEG ordered. Continue home Lamictal. Continue home statin and Coumadin as below. Monitor closely. 2. Chronic debility with cognitive impairment ? PT/OT/case management consulted. Lives at assisted living and has known history of cognitive impairment. Continue home donepezil. Pending workup above, should be okay to return to assisted living on discharge. 3. History of CAD with stenting, hypertension, hyperlipidemia, longstanding persistent A-fib on Coumadin, carotid stenosis ? Continue home statin and Coumadin. INR therapeutic on admit. Will hold home beta-antonio and ARB for now for permissive hypertension, restart when able. 4. GERD ? Continue home PPI. DVT prophylaxis: Not indicated, on warfarin CODE STATUS: Full code, verified Expected disposition: Back to assisted living, 1 to 2 days Total clinical time spent by myself addressing the patient's medical issues, reviewing all the data, and collaborating with patient's care team: 55 minutes. Charges/Coding Visit Charges Inpatient E&M: 85749 Init Hosp L2 09/10/247 <Electronically signed by Matthew Oro DO> Cosigner Signature (if applicable): CC: Dr. Matthew Oro DO; Dr. Chucky Ochoa DO~ Signed [facility] Work Phone: 1(646) 293-845106-13-2025 Discharge summary Author Teri Garcia [facility] Note Date/Time September 10, 2024 4:17 pm [facility] Medical Records Department [address] [place] [address] Emergency Department Summary 09/10/24 MR#: [id number] Acct: [id number] Name: EZRA GONZALEZ Rep #:[id number] : 1935 89 From: Teri Echeverria PCP: [...] son Wilfredo (her eldest son) phone number [phone]. He states that she follows with Dr. 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 He also tells me that he talk to her about 615 this morningand she seemed a little off with her mentation as well as her pronunciation. 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) Persistent atrial fibrillation Chronic kidney disease (CKD) Spinal stenosis Osteoarthritis Atherosclerotic heart disease of [place] coronary artery without angina pectoris Type 2 [...] mildly dysarthric speech but is understandable. Orientation gan is at her baseline. Sensorium / Orientation: [...] 72.3 H Lymph % (Auto) 16.6 L Island % (Auto) 9.1 Eos % (Auto) 1.2 [...] Clarity Clear Urine pH 5.0 Ur Specific [place] 1.010 Urine Protein 30 H Urine Glucose [...] 2:05 pm with readback verification. Reading Location: [id number] Head/Neck CTA 09/10/24 13:55 IMPRESSION: Calcific plaque [...] 3:01 pm with readback verification. 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 Level of Consciousness: [...] No aphasia; normal 10. Dysarthria: 1 = [id number] dysarthria; 11. Extinction and Inattention: 0 - [...] your Primary Care Provider. Call [facility] ([phone]) or report to the closest Emergency Room. Call 911 if necessary. 09/10/24 1617 <Electronically signed by Teri Garcia DO> Cosigner Signature (if applicable): CC: Dr. Chucky Ochoa DO ~ Signed [facility] Work Phone: 1(679) 785-389006-13-2025 History and physical note [facility] Medical Records Department [address] [place] [address] H&P Exam - Hospitalist 09/10/24 1603 MR#: [id number] Acct: [id number] Name: EZRA GONZALEZ Rep #:[id number] : 1935 89 From: Matthew carbajal DO PCP: Dr. Chucky Ochoa DO Status:ADM MARIELOS Location: [place] [address] HPI - General General Date of Admission: 09/10/24 Date of Service: 09/10/24 Chief Complaint: Dysarthria HPI Narrative EZRA GONZALEZ, is a 89 F who presented to [facility] ED on 09/10/2024 with dysarthria. Patient lives at assisted living at [facility]. Has history of seizures and is on Lamictal. She follows with Dr. Juarez with neurology. Developed acute onset dysarthria today at noon. Has apparently had similar episodes like this in the past and Dr. Juarez suspects that they may beepileptic episodes. Patient's speech returned to normal after about [address] brain was negative. CTA head/neck did show carotid stenosis but this was stable from previous. She notably is on Coumadin for A-fib and atorvastatin forhistory of CAD with stenting. INR was therapeutic on admission. On discussion with [facility] neurology, recommendation was for admission for MRI brain and routine EEG for further evaluation. Hospitalist was then contacted for admission. I saw the patient at bedside in the ED. She wassitting back comfortably in bed, in no acute distress. She had no dysarthria during our encounter. She does report feeling somewhat frustrated by these episodes and that there has not zoe clear reason given for them. She denies any other acute concerns at this time. 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) Persistent atrial fibrillation Chronic kidney disease (CKD) Spinal stenosis Osteoarthritis Atherosclerotic heart disease of [place] coronary artery without angina pectoris Type 2 diabetes mellitus Essential (primary) hypertension Hyperlipidemia Obesity Pleural effusion on right (09/2019) Paroxysmal atrial fibrillation Home Medications ?Medication ?Instructions ?Recorded ?Last Taken ?Type multivitamin 1 cap PO DAILY 12/10/19/2 12/21 History omeprazole 20 mg capsule,delayed 20 [...] type: does not use caffeine: No ROS Constitutional Constitutional: Denies chills, fatigue, fever(s) or weakness Eyes Eyes: Denies change in vision Cardiovascular Cardiovascular: Denies chest pain Respiratory/Chest Respiratory/Chest: Denies shortness of breath at rest Gastrointestinal Gastrointestinal: Denies abdominal pain Musculoskeletal Musculoskeletal: Denies arthralgias or myalgias Neurologic Neurologic: Denies abnormal speech, confusion, dizziness, focal weakness, headache(s), numbness or tingling Vital Signs Vital Signs Vital Signs: 09/10/24 13:50 09/10/24 13:58 09/10/24 [...] Ox 97 Oxygen Delivery Method Room Air Weight Weight: 68.039 kg Body Mass Index (BMI) 26.5 Physical Exam Const alert, oriented x3, no apparent distress and average body habitus Constitutional Narrative: Pleasant elderly female, alert and oriented x 3 but with some tangential speech noted, otherwise sitting back comfortably in bed, conversing normally and in no acute distress. General Appearance: cooperative and comfortable HEENT normocephalic, head/scalp atraumatic, hearing grossly normal bilaterally, nasal mucous membranes and turbinates normal and moist oral mucous membranes Eyes PERRL, EOMs intact bilaterally and conjunctivae normal Neck full ROM Chest inspection of chest normal Resp normal respiratory effort, normal air movement, no use of accessory muscles and clear to auscultation bilaterally Cardio regular rate, regular rhythm, no murmurs and peripheral pulses 2+ throughout GI normal to inspection, nondistended, normoactive bowel sounds, soft to palpation,non-tender and non-distended Back/Spine normal ROM Extremity normal to inspection, full ROM and no pedal edema Skin no rashes or lesions noted Neuro CN's II-XII intact bilaterally, moves all extremities and no focal motor deficits Sensorium / Orientation: awake and alert Speech: speech normal Motor Exam: strength 5/5 throughout Psych mental status grossly normal Results Lab / Micro Data 09/10/24 14:50 09/10/24 14:50 Labs: Laboratory Results - last 24 hr 09/10/24 14:50: WBC 11.5 H, RBC 4.44, Hgb 13.6, Hct 41.7, MCV 93.9, MCH 30.6, MCHC 32.6, RDW Std Deviation 45.4 H, RDW Coeff of Sumeet 13.2, Plt Count 269, MPV 10.4, Immature Gran % (Auto) 0.400, Neut %(Auto) 72.3 H, Lymph % (Auto) 16.6 L,Island % (Auto) 9.1, Eos % (Auto) 1.2, Baso % (Auto) 0.4, Absolute Neuts (auto) 8.3 H, Absolute Lymphs (auto) 1.91, Nucleated RBC % 0, PT 26.4 H, INR 2.4, APTT 31.8, Sodium 137, Potassium 4.4, Chloride 103, Carbon Dioxide 21.8, Anion Gap 12, BUN 37 H, Creatinine 1.05, Estim Creat Clear Calc 33.63 L, Est GFR (MDRD) Non-Af 51 L, BUN/Creatinine Ratio 34.8 H, Glucose 131 H, Calcium 8.7, Troponin THigh Sens 18 H 09/10/24 15:03: Urine Color Straw, Urine Clarity Clear, Urine pH 5.0, Ur Specific [place] 1.010, Urine Protein 30 H, Urine Glucose (UA) Normal, Urine Ketones Negative, Urine Occult Blood Negative, Urine Nitrite Negative, Urine Bilirubin Negative, Urine Urobilinogen Normal, Ur Leukocyte Esterase 500H, Urine RBC 0 SEEN, Urine WBC 10-25 SEEN, Ur Squamous Epith Cells 0-5 SEEN, Urine Bacteria RARE, Urine Mucus 0 SEEN Imaging Radiology Impression Brain CT 09/10/24 13:55 IMPRESSION: CHRONIC CHANGES. NO ACUTE FINDINGS. Red Alert: Chronic changes. The critical information above was relayed directly by me by telephone to Teri Garcia on 09/10/2024 at 2:05 pm with readback verification. Reading Location: [id number] Head/Neck CTA 09/10/24 13:55 IMPRESSION: Calcific plaque at the origin of the right and left internal carotid arteries causing 60% stenosis. Diffuse narrowing of the left posterior cerebral artery as well as the distal branches. Red Alert: Narrowing of Left Pos this is unchanged. The critical information above was relayed directly by me by telephone to Jose Teri on 09/10/2024 at 3:01 pm with readback verification. Reading Location: [id number] Assessment & Plan Assessment/Plan (1) Difficulty with speech: PLAN: Plan Patient is an 89-year-old female who presented to [facility] ED on 09/10/2024 with dysarthria. 1. Episode of dysarthria with history of seizures, concern for CVA versus breakthrough seizure ? Admit under observation status to PCU. Neurology consulted. Episode of dysarthria that lasted about 30 minutes and resolved on its own. CT brain and CTA head/neck nonacute. Follows with Dr. Wilburn neurology who has been concern for possible epileptic episodes. Notably was here 3 days ago and Lamictal level was sent but result is pending. Orders placed per stroke protocol order set. MRI brain and routine EEG ordered. Continue home Lamictal. Continue home statin and Coumadin as below. Monitor closely. 2. Chronic debility with cognitive impairment ? PT/OT/case management consulted. Lives at assisted living and has known history of cognitive impairment. Continue home donepezil. Pending workup above, should be okay to return to assisted living on discharge. 3. History of CAD with stenting, hypertension, hyperlipidemia, longstanding persistent A-fib on Coumadin, carotid stenosis ? Continue home statin and Coumadin. INR therapeutic on admit. Will hold home beta-antonio and ARB for now for permissive hypertension, restart when able. 4. GERD ? Continue home PPI. DVT prophylaxis: Not indicated, on warfarin CODE STATUS: Full code, verified Expected disposition: Back to assisted living, 1 to 2 days Total clinical time spent by myself addressing the patient's medical issues, reviewing all the data, and collaborating with patient's care team: 55 minutes. Charges/Coding Visit Charges Inpatient E&M: 85501 Init Hosp L2 09/10/24 1727 Cosigner Signature (if applicable): CC: Dr. Matthew Oro, ; Dr. Chucky Ochoa DO~ Signed [facility]06-13-2025 Discharge summary [facility] Medical Records Department [address] [place] [address] Emergency Department Summary 09/10/24 MR#: [id number] Acct: [id number] Name: EZRA GONZALEZ Rep #:[id number] : 1935 89 From: Teri Echeverria PCP: Dr. Chucky Ochoa DO Status:REG ER Location: ED HPI History [...] other neurologic deficits reported. Patient was seen inour ER 2 days ago for breakthrough seizure and was discharged back. No report of any recent falls or trauma. Patient tells me that she has seizures that cause any speech changes. I spoke to her son Wilfredo (her eldest son) phone number [phone]. He states that she follows with Dr. 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 He also tells me that he talk to her about 615 this morningand she seemed a little off with her mentation as well as her pr onunciation. 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) Persistent atrial fibrillation Chronic kidney disease (CKD) Spinal stenosis Osteoarthritis Atherosclerotic heart disease of [place] coronary artery without angina pectoris Type 2 [...] mildly dysarthric speech but is understandable. Orientation gan is at her baseline. Sensorium / Orientation: [...] 72.3 H Lymph % (Auto) 16.6 L [place] % (Auto) 9.1 Eos % (Auto) 1.2 [...] Clarity Clear Urine pH 5.0 Ur Specific [place] 1.010 Urine Protein 30 H Urine Glucose [...] 2:05 pm with readback verification. Reading Location: [id number] Head/Neck CTA 09/10/24 13:55 IMPRESSION: Calcific plaque [...] 3:01 pm with readback verification. Reading Location: [id number] Rhythm Strip Rhythm Strip: A-fib Rate: 75 Ectopy: None EKG Initial EKG: Attestation: I personally reviewed and interpreted this EKG as follows: Interpretation: Atrial Fibrillation Comments: Atrial fibrillation at a rate of 75 bpm Left axis deviation Moderate voltage criteria for LVH Normal ST segments Management Discussion w/another healthcare provider: Hospitalist, Structural Fitter and Radiologist Discharge Plan Triage Chief Complaint: Stroke Alert ED Provider: Teri Garcia Dx/Rx/DC Orders Clinical Impression: Difficulty with speech, residential current use of anticoagulant, Atrial fibrillation, chronic, [...] DO [Primary Care Provider] - Print Language: Cymro Disposition Disposition: Acute Care Hospital [facility] NIHSS NIHSS 1a. Level of Consciousness: [...] No aphasia; normal 10. Dysarthria: 1 = Pjwj-hb-bzphbmzy dysarthria; 11. Extinction and Inattention: 0 - No abnormality Total: 1 Stroke Questions Stroke Team Activated: Yes Reviewed Inclusion/Exclusion criteria: Yes Was Patient considered for Endovascular Intervention?: No IV Thrombolytic Administered: No No contraindications from thrombolytic administration: No (Patient therapeutic on Coumadin and doesnot have debilitating stroke sympt) What to do if you have Problems For any increased pain, shortness of breath, bleeding, nausea or vomiting, chestpain, or any unexpected problems, contact your Primary Care Provider. Call [facility] ([phone]) or report tothe closest Emergency Room. Call 911 if necessary. 09/10/24 1617 Cosigner Signature (if applicable): CC: Dr. Chucky Ochoa DO ~ Signed [facility]06-13-2025 Radiology Diagnostic study note [facility] Imaging Services [address] [place], [place] [id number] STROKE CTA Head AND Neck W/Con MR#: [id number] Acct: [id number] Name: EZRA GONZALEZ Rep #: [id number] : 1935 F 89 From: Jian Gipson MD PCP: Dr. Chucky Ochoa DO Status: REG ER Study:STROKE CTA Head AND Neck W/Con Date of Exam: 09/10/24 Exam# [id number] Ordering Dr: Adeel Garcia DO PROCEDURE: STROKE [...] RIGHT Vertebral: Unremarkable. LEFT Vertebral: Unremarkable. Anatomy: [place] anatomy is normal. Aneurysm or [...] 3:01 pm with readback verification. Reading Location: [id number] CC: Dr. Teri Garcia DO; Dr. Chucky Ochoa DO ~ Back Tender: Signed [facility]06-13-2025 Radiology Diagnostic study note [facility] Imaging Services [address] [place] [address] STROKE Brain/Head without Cont MR#: [id number] Acct: [id number] Name: LISAEZRA MONSIVAISCELYN Rep #: [id number] : 1935 F 89 From: Jian Gipson MD PCP: Dr. Chucky Ochoa DO Status: REG ER Study:STROKE Brain/Head without Cont Date of Exam: 09/10/24 Exam# [id number] Ordering Dr: Adeel Garcia DO PROCEDURE: STROKE [...] 2:05 pm with readback verification. Reading Location: [id number] CC: Dr. Teri Garcia DO; Dr. Chucky Ochoa DO ~ Back Tender: Signed [facility]06-11-2025 Discharge summary [facility] Medical Records Department [address] [place] [address] Emergency Department Summary 09/08/24 MR#: [id number] Acct: [id number] Name: EZRA GONZALEZ Rep #:[id number] : 1935 89 From: Anoop Blackmon MD [...] His most recent office note was reviewed. Caioini mental status exam improved after she was [...] Spinal stenosis Osteoarthritis Atherosclerotic heart disease of [place] coronary artery without angina pectoris Type 2 [...] of radiofrequency ablation procedure for cardiac arrhythmia (2012) Social History housing: assisted living facility Smoking [...] creatinine ratio of 35:1. Glucose is slight [id number] with a normal CO2 anion gap. Labs: Laboratory Results - last 24 hr 09/08/24 12:50 WBC 13.6 H RBC 4.40 Hgb 13.8 Hct 41.4 MCV 94.1 MCH 31.4 MCHC 33.3 RDW Std Deviation 45.2 H RDW Coeff of Sumeet 13.2 Plt Count 326 MPV 10.8 Immature Gran % (Auto) 0.400 Neut % (Auto) 75.9 H Lymph % (Auto) 16.2 L Island % (Auto) 6.6 Eos % (Auto) 0.7 [...] with her neurologist Dr. Juarez Print Language: Cymro Disposition Disposition: Home, Self Care What to do if you have Problems For any increased pain, shortness of breath, bleeding, nausea or vomiting, chestpain, or any unexpected problems, contact your Primary Care Provider. Call [facility] ([phone]) or report tothe closest Emergency Room. Call 911 if necessary. 09/08/24 1516 Cosigner Signature (if applicable): CC: Dr. Chucky Ochoa MD ~ Signed [facility]06-11-2025 Discharge summary Author Anoop Blackmon [facility] Note Date/Time September 08, 2024 3:16 pm [facility] Medical Records Department [address] [place] [address] Emergency Department Summary 09/08/24 MR#: [id number] Acct: [id number] Name: EZRA GONZALEZ Rep #:[id number] : 1935 89 From: Anoop Blackmon MD [...] His most recent office note was reviewed. Caioini mental status exam improved after she was [...] Spinal stenosis Osteoarthritis Atherosclerotic heart disease of [place] coronary artery without angina pectoris Type 2 [...] creatinine ratio of 35:1. Glucose is slight [id number] with a normal CO2 anion gap. Labs: Laboratory Results - last 24 hr 09/08/24 12:50 WBC 13.6 H RBC 4.40 Hgb 13.8 Hct 41.4 MCV 94.1 MCH 31.4 MCHC 33.3 RDW Std Deviation 45.2 H RDW Coeff of Sumeet 13.2 Plt Count 326 MPV 10.8 Immature Gran % (Auto) 0.400 Neut % (Auto) 75.9 H Lymph % (Auto) 16.2 L Island % (Auto) 6.6 Eos % (Auto) 0.7 [...] with her neurologist Dr. Juarez Print Language: Cymro Disposition Disposition: Home, Self Care What to do if you have Problems For any increased pain, shortness of breath, bleeding, nausea or vomiting, chestpain, or any unexpected problems, contact your Primary Care Provider. Call [facility] ([phone]) or report to the closest Emergency Room. Call 911 if necessary. 09/08/24 1516 <Electronically signed by Anoop Blackmon MD> Cosigner Signature (if applicable): CC: Dr. Chucky Ocoha MD ~ Signed [facility] Work Phone: 1(885) 217-710304-03-2025 Evaluation note* Diagnosis Onset Date Resolution Status Admit Date Longstanding persistent atrial fibrillation acute July 01 10:35am Essential (primary) hypertension chronic July 01, 2024 10:35am History of coronary artery stent placement February 14, 2007 resolved July 01 10:35am [facility] Work Phone: [phone]) 499-591504-03-2025 Evaluation note* Diagnosis Onset Date Resolution Status Admit Date Longstanding persistent atrial fibrillation acute July 01, 025 10:35am Essential (primary) hypertension chronic July 01, 2024 10:35am History of coronary artery stent placement February 14, 2007 resolved July 01, 025 10:35am Difficulty with speech acute [facility] 2024 4:03pm [facility] Work Phone: 1(431) 885-315504-03-2025 Evaluation note* Diagnosis Onset Date Resolution Status Admit Date Longstanding persistent atrial fibrillation acute July 01, 2 025 10:35am Essential (primary) hypertension chronic July 01, 2024 10:35am History of coronary artery stent placement February 14, 2007 resolved July 01 025 10:35am Difficulty with speech acute [facility] 2024 4:03pm 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 2:04pm [facility] Work Phone: 1(788) 799-562902-10-2025 Evaluation note* Diagnosis Onset Date Resolution Status Admit Date Dementia acute May 10, 2024 2:34pm Epilepsy acute May 10, 2024 2:34pm Transient ischemic attack resolved May 10, 2024 2:34pm [facility] Work Phone: 1(398) 554-303402-10-2025 Evaluation note* Diagnosis Onset Date Resolution Status Admit Date Dementia acute May 10, 2024 2:34pm Epilepsy acute May 10, 2024 2:34pm Transient ischemic attack resolved May 10, 2024 2:34pm Longstanding persistent atrial fibrillation acute July 01, 025 10:35am Essential (primary) hypertension chronic July 01, 2024 10:35am History of coronary artery stent placement February 14, 2007 resolved July 01, 2024 10:35am [facility] Work Phone: 1(612) 661-593703-22-2024 NoteStart PACC Note Home Health Referral Educated patient on Home Care and services available. Patient offered choice of available HHC and agreeable to PT/OT services with [facility] - Home Care. Care [...] is noted as yes - consider a APARTMENT COORDINATOR evaluation once the patient returns home. START PATIENT REGISTRATION INFORMATION Order Information Order Signing Physician: Connie Perez APRN * Service Ordered RN ?: No Service Ordered PT ?: Yes Service Ordered OT ?: Yes Service Ordered ST ?: No Service Ordered APARTMENT COORDINATOR?:No Service Ordered NAIL STICKER?: No Following Physician: ALEXANDRA HAGEN Following Physician Overseeing Physician: ALEXANDRA HAGEN (Required for Residents only) Agreeable to Follow? No Date/Time of Call 06/20/23 2:40 PM, Spoke with: BRYAN FOR OFFICE-CONFIRMED WITH JOSEP THIS IS HER PHYSICAN AND CAN SEE RECENT NOTES IN [facility] Care Coordination Same Day SOC?: No Primary Care Physician: ALEXANDRA HAGEN Primary Care Physician Primary Care Physician Address: [address] [facility] [address] Visit Instructions: N/A Service Discharge Location Type: Assisted Living Service Facility Name: [facility] Service Floor Facility: N/A Service Room No: 105 Demographics Patient Last Name: Lisa Patient First Name: Ezra Language/Communication Barrier: NONE Service Address: [facility] Service City: [facility] ST: [place] Service ZIP: [address] Service (home) Other phone numbers: No relevant phone numbers on file. Emergency Contact: Extended Emergency Contact Information Primary Emergency Contact: Patito [place] Mobile Relation: Son Assessment Nurse Practitioner needed? No Secondary Emergency Contact: Ty [place] Mobile Relation: Son Admission Information Admit Date: 06/16/2023 Patient status at discharge: Inpatient Admitting Diagnosis: Closed displaced fracture of medial condyle of right humerus, initial encounter [S41.968S] Caregiver Information Caregiver First Name: NA Caregiver [...] medications. Discharge Date: 06/20/23 Referral Source-PACC: (Hospital/Unit): [facility] / E7-707/E7-707 A End PACC [facility]03-22-2024 History of Present illness Narrative* Juanjo Villalba RN - 06/20/2023 3:51 PM EDT Dc via DM cot to [facility] with all belongings * Juanjo Villalba RN - 06/20/2023 3:01 PM EDT Called report to Maryanne at [place] * Dc Lombardi - 06/20/2023 2:26 PM EDT [facility] Anticoagulation Management Service (RIA) Inpatient Warfarin Consult HPI: Ezra Gonzalez is a 87 y.o. female admitted on 06/16/2023 for Closed displaced fracture of medial condyle of right humerus, initial encounter [S42.461A] History reviewed. No pertinent past medical history. [...] patient can be classified as high risk ([id number] = 8). 2. Monitor for s/s of bleeding and drug interactions. Will adjust dose accordingly 3. RIA will manage while inpatient Dc Lombardi, PharmD Candidate Toshia Sanches, JpD, BCPS RIA is available daily [phone] via [employer]. If no response on [employer] Chat then please page [phone]. * Shayne Fonseca MD - 06/20/2023 6:05 [...] off at this time. Please page resident transportation clerk on Secure Chat with concerns or should [...] distributions -Motor function intact to AIN/PIN/Ulnar * Maryannehandy Neumann, PT - 06/19/2023 3:11 PM EDT Images from the original note were not included. PHYSICAL THERAPY [facility] Initial Evaluation Name/MRN: Ezra Gonzalez ([id number]) Evaluation Date: 06/19/2023 Date of : 1935 Admission Date: 06/16/2023 1:38 PM Age: 87 y.o. Room/Bed: [facility]707/[facility] A Discharge Recommendation: Home with Home health PT (return to [place]) Equipment Needed: No Assessment IMPRESSION: 87 y.o. pt admitted to [facility] for closed fracture RUE, s/p ORIF R humerus 06/17. They were Min A for bed mobility, Min A for transfers, and Min A for ambulation. Pt limited d/t balance. If from [place] where she can receive Min A for all ADLs and mobility. Would recommend return to [place] and [facility] PTat discharge. Diagnosis: closed fracture RUE, [...] correction Ambulation Ambulation 1 Assistive device(s) used: NAIL STICKER Assist level: Min Assist Distance (ft): 15' [...] Raw Score (No Stairs) : 18 [facility] Score: Walked 25 ft or more [...] Minutes 27 Timed Code Treatment Minutes: (mod bertha, 1 FA) Maryanne Neumann PT Patient's Physical Therapy Plan of Care supervision is transferred to a [facility] Therapy Services Physical Therapist. Goals and/or treatment plan was established in collaboration with patient/family/other representatives. * Enedelia Sanches, [facility] - 06/19/2023 1:50 PM EDT [facility] Anticoagulation Management Service (RIA) Inpatient Warfarin Consult HPI: Ezra Gonzalez is a 87 y.o. female admitted on 06/16/2023 for Closed displaced fracture of medial condyle of right humerus, initial encounter [S42.771P] History reviewed. No pertinent past medical history. [...] patient can be classified as high risk ([id number] = 8). 2. Monitor for s/s of bleeding and drug interactions. Will adjust dose accordingly 3. RIA will manage while inpatient Dc Lombardi, JpD Candidate Jp BolanosD, BCPS RIA is available daily [phone] via [employer]. If no response on [employer] Chat then please page [phone]. * Kavon Diallo, OT - 06/19/2023 11:54 AM EDT Images from the original note were not included. OCCUPATIONAL THERAPY [facility] Initial Evaluation Name/MRN: Ezra Gonzalez ([id number]) Evaluation Date: 06/19/2023 Date of : 1935 Admission Date: 06/16/2023 1:38 PM Age: 87 y.o. Room/Bed: [facility] A Discharge Recommendation: Continue to assess pending [...] of Care supervision is transferred to a [facility] Therapy Services Occupational Therapist. Goals and/or treatment plan was established in collaboration with patient/family/other representatives. * JANNETTE Hall CNP - 06/19/2023 9:52 AM EDT Images from the original note were not included. Hospitalist Progress Note 06/19/2023 Subjective: Admit Date: 06/16/2023 PCP: No primary care provider on file. Room#: E7-652/X0-367 A BRIEF HOSPITAL COURSE: Ezra is a [...] Emergency Contact: Patito [place] Mobile Relation: Son Assessment Nurse Practitioner needed? No Secondary Emergency Contact: Ty [place] Mobile Relation: Son JANNETTE Hall CNP Division of Hospitalist Medicine [facility] * Huma Tavarez MD - 06/19/2023 6:14 [...] be monitored and followed by the diet electrician technician. NICA Watts * Louisa Cespedes OT - 06/18/2023 8:26 AM EDT Images from the original note were not included. OCCUPATIONAL THERAPY [facility] Name/MRN: Ezra Gonzalez ([id number]) Date: 06/18/2023 OT eval and treat order received. Patient chart reviewed. Per Ortho note, Plan for ORIF od R distal humerus. Will hold evaluation till after surgery. Louisa Cespedes OT * JANNETTE Hall CNP - 06/18/2023 8:00 AM EDT Images from the original note were not included. Hospitalist Progress Note 06/18/2023 Subjective: Admit Date: 06/16/2023 PCP: No primary care provider on file. Room#: E7-381/F8-895 A BRIEF HOSPITAL COURSE: Ezra is a [...] Primary Emergency Contact: GillesrodriguePatito Mobile Relation: Son Assessment Nurse Practitioner needed? No Secondary Emergency Contact: GillesrodrigueTy Mobile Relation: Son JANNETTE Hall CNP Division of Hospitalist Medicine [facility] * Maryanne Neumann PT - 06/18/2023 7:27 AM EDT Images from the original note were not included. PHYSICAL THERAPY [facility] Name/MRN: Ezra Gonzalez ([id number]) Date: 06/18/2023 PT orders received and chart [...] tomorrow, 06/17. Ok for diet today. NPO @MA. Keep splint C/D/I. Evette Viera MD Orthopaedic Surgery, PGY-5 [phone] * Cnonie Perez APRN - HAND FINISHER - 06/17/2023 7:46 AM EDT Images from [...] Emergency Contact: Patito [place] Mobile Relation: Son Assessment Nurse Practitioner needed? No Secondary Emergency Contact: GillesrodrigueTy Mobile Relation: Son JANNETTE Hall CNP Division of Hospitalist Medicine Acute care [facility] * Shayne Fonseca MD - 06/17/2023 [...] + AIN/PIN/ulnar nerve functions documented in this [facility]03-22-2024 Miscellaneous Notes* Care Coordination - Unknown Case Management - 06/20/2023 2:58 PM EDT Patient Choice Patient Name: EZRA GONZALEZ Date of : 1935 All Providers Sent Referral Name: [facility] Phone: [phone] Address: [address] [place] [address] * Home Care - Vivian Bills RN - 06/20/2023 2:40 PM EDT Start PACC Note Home Health Referral Educated patient on Home Care and services available. Patient offered choice of available HHC and agreeable to PT/OT services with [facility] - Home Care. Care [...] is noted as yes - consider a APARTMENT COORDINATOR evaluation once the patient returns home. START PATIENT REGISTRATION INFORMATION Order Information Order Signing Physician: Connie Perez APRN * Service Ordered RN ?: No Service Ordered PT ?: Yes Service Ordered OT ?: Yes Service Ordered ST ?: No Service Ordered APARTMENT COORDINATOR?:No Service Ordered NAIL STICKER?: No Following Physician: ALEXANDRA HAGEN Following Physician Overseeing Physician: ALEXANDRA HAGEN (Required for Residents only) Agreeable to Follow? No Date/Time of Call 06/20/23 2:40 PM, Spoke with: BRYAN FOR OFFICE-CONFIRMED WITH JOSEP THIS IS HERPHYSICAN AND CAN SEE RECENT NOTES IN [facility] Care Coordination Same Day SOC?: No Primary Care Physician: ALEXANDRA HAGEN Primary Care Physician Primary Care Physician Address: [address] [place] [address] [address] [facility] [address] Visit Instructions: N/A Service Discharge Location Type: Assisted Living Service Facility Name: [facility] Floor Facility: N/A Service Room No: 105 Demographics Patient Last Name: Lisa Patient First Name: Ezra Language/Communication Barrier: NONE Service Address: [address] Service City: [facility] ST: [place] Service ZIP: [address] Service (home) Other phone numbers: No relevant phone numbers on file. Emergency Contact: Extended Emergency Contact Information Primary Emergency Contact: Patito [place] Mobile Relation: Son Assessment Nurse Practitioner needed? No Secondary Emergency Contact: Ty [place] Mobile Relation: Son Admission Information Admit Date: 06/16/2023 Patient status at discharge: Inpatient Admitting Diagnosis: Closed displaced fracture of medial condyle of right humerus, initial encounter [S42.316A] Caregiver Information Caregiver First Name: NA Caregiver [...] medications. Discharge Date: 06/20/23 Referral Source-PACC: (Hospital/Unit): [facility] / E7-707/E7-707 A End PACC Note * [...] pt order lunch. Notified TONIO, RN and day camp unit leader. . * Care Coordination - Shikha Gray RN - 06/20/2023 11:01 AM EDT I SPOKE WITH DONOVAN, NEWS INTERN AT [facility]. THEY CAN TAKE PT BACK TODAY. THEY CAN PROVIDE TRANSPORTATION BACK TO FACILITY AROUND 3 PM. AWARE PT WILL NEED PT AT FACILITY, THEY USE [facility], DID LET HC LIAISON NOW. WENT [...] PM EDT Date: 06/16/2023 - 06/18/2023 Location: [facility] OR Name: Ezra Gonzalez, : 1935, Diagnosis Pre-op Diagnosis * Closed displaced fracture of medial condyle of right humerus, initial encounter [S42.461A] Post-op Diagnosis * Closed displaced fracture of medial condyle of right humerus, initial encounter [S42.461A] Procedures OPEN REDUCTION INTERNAL FIXATION RIGHT DISTAL HUMERUS 18680 - [place] [employer] HUMERAL SHFT FX W/PLATE/SCREWS W/WOCERCLAGE Surgeons * Benitez Givens - Primary Procedure Summary Anesthesia: * No anesthesia type entered * ASA: III Estimated Blood Loss: Minimal Drains: * None in log * Staff: Tassel Maker: Vivian Herrera RN Scrub Person: Linda Alvarez [...] Limits Permission given to speak with patient community health representative/caregiver as indicated: No Confirmation of Payer with patient/family: Yes Payer Name: [facility] : No Confirmation of Primary Care [...] rest and pain control documented in this [facility]03-22-2024 Note* Care Coordination - Unknown Case Management - 06/20/2023 2:58 PM EDT Patient Choice Patient Name: EZRA GONZALEZ Date of : 1935 All Providers Sent Referral Name: [facility] Phone: [phone] Address: [address] [place] [address] [email or web address] Note* Care Coordination - Unknown Case Management - 06/20/2023 2:58 PM EDT Patient Choice Patient Name: EZRA GONZALEZ Date of : 1935 All Providers Sent Referral Name: [facility] Phone: [phone] Address: [address] [place] [address] [email or web address] Note* Home Care - Vivian Bills RN - 06/20/2023 2:40 PM EDT Start PACC Note Home Health Referral Educated patient on Home Care and services available. Patient offered choice of available HHC and agreeable to PT/OT services with [facility] - Home Care. Care Types: [...] is noted as yes - consider a APARTMENT COORDINATOR evaluation once the patient returns home. START PATIENT REGISTRATION INFORMATION Order Information Order Signing Physician: Connie Perez APRN * Service Ordered RN ?: No Service Ordered PT ?: Yes Service Ordered OT ?: Yes Service Ordered ST ?: No Service Ordered APARTMENT COORDINATOR?:No Service Ordered NAIL STICKER?: No Following Physician: ALEXANDRA HAGEN Following Physician Overseeing Physician: ALEXANDRA HAGEN (Required for Residents only) Agreeable to Follow? No Date/Time of Call 06/20/23 2:40 PM, Spoke with: BRYAN FOR OFFICE-CONFIRMED WITH JOSEP THIS IS HERPHYSICAN AND CAN SEE RECENT NOTES IN EPIC Care Coordination Same Day SOC?: No Primary Care Physician: ALEXANDRA HAGEN Primary Care Physician Primary Care Physician Address: [address] [facility] [address] Visit Instructions: N/A Service Discharge Location Type: Assisted Living Service Facility Name: [facility] Floor Facility: N/A Service Room No: 105 Demographics Patient Last Name: Lisa Patient First Name: Ezra Language/Communication Barrier: NONE Service Address: [address] [place] [address] [address] Service City: [facility] ST: [place] Service ZIP: [address] Service (home) Other phone numbers: No relevant phone numbers on file. Emergency Contact: Extended Emergency Contact Information Primary Emergency Contact: BereketPatito Mobile Relation: Son Assessment Nurse Practitioner needed? No Secondary Emergency Contact: BereketTy Mobile Relation: Son Admission Information Admit Date: 06/16/2023 Patient status at discharge: Inpatient Admitting Diagnosis: Closed displaced fracture of medial condyle of right humerus, initial encounter [S42.461A] Caregiver Information Caregiver First Name: NA Caregiver Last Name: NA Caregiver Relationship to Patient NA Caregiver Phone Number: NA Caregiver Notes: N/A [employer] List No END PATIENT REGISTRATION INFORMATION Pt [...] medications. Discharge Date: 06/20/23 Referral Source-PACC: (Hospital/Unit): [facility] / E7-707/E7-707 A End PACC Note [id number]* Home Care - Vivian Bills RN - 06/20/2023 2:40 PM EDT Start PACC Note Home Health Referral Educated patient on Home Care and services available. Patient offered choice of available HHC and agreeable to PT/OT services with [facility] at Home - Home Care. Care [...] is noted as yes - consider a APARTMENT COORDINATOR evaluation once the patient returns home. START PATIENT REGISTRATION INFORMATION Order Information Order Signing Physician: Connie Perez APRN * Service Ordered RN ?: No Service Ordered PT ?: Yes Service Ordered OT ?: Yes Service Ordered ST ?: No Service Ordered APARTMENT COORDINATOR?:No Service Ordered NAIL STICKER?: No Following Physician: ALEXANDRA HAGEN Following Physician Overseeing Physician: ALEXANDRA HAGEN (Required for Residents only) Agreeable to Follow? No Date/Time of Call 06/20/23 2:40 PM, Spoke with: LVM FOR OFFICE-CONFIRMED WITH JOSEP THIS IS HERPHYSICAN AND CAN SEE RECENT NOTES IN [facility] Care Coordination Same Day SOC?: No Primary Care Physician: ALEXANDRA HAGEN Primary Care Physician Primary Care Physician Address: [address] [place] [address] [address] / [place] [phone] Visit Instructions: N/A Service Discharge Location Type: Assisted Living Service Facility Name: [facility] Service Floor Facility: N/A Service Room No: 105 Demographics Patient Last Name: Lisa Patient First Name: Ezra Language/Communication Barrier: NONE Service Address: [address] [place] [address] [address] Service City: [facility] ST: [place] Service ZIP: [address] Service (home) Other phone numbers: No relevant phone numbers on file. Emergency Contact: Extended Emergency Contact Information Primary Emergency Contact: GillesrodriguePatito Mobile Relation: Son Assessment Nurse Practitioner needed? No Secondary Emergency Contact: MariiadennisTy Mobile Relation: Son Admission Information Admit Date: 06/16/2023 Patient status at discharge: Inpatient Admitting Diagnosis: Closed displaced fracture of medial condyle of right humerus, initial encounter [S42.461A] Caregiver Information Caregiver First Name: NA Caregiver Last Name: NA Caregiver Relationship to Patient NA Caregiver Phone Number: NA Caregiver Notes: N/A [employer] List No END PATIENT REGISTRATION INFORMATION Pt [...] medications. Discharge Date: 06/20/23 Referral Source-PACC: (Hospital/Unit): [facility] / E7-707/E7-707 A End PACC [facility]Awajrk04-18-2346 NoteHospitalist Discharge Summary Ezra Gonzalez : 1935 [...] primary care provider Schedule (more content not included)...[facility]03-22-2024 Note* Care Coordination - SELINA Magaña [...] for SW. Helped pt order lunch. Notified TONIO RN and day camp unit leader. . [facility] HospitalVlkqha42-69-8332 Note* Care Coordination - SELINA Magaña - [...] pt order lunch. Notified JAYME ELIZALDE and day camp unit leader. . [facility] HospitalQqlzom52-82-0405 Note* Care Coordination - Shikha Gray RN - 06/20/2023 11:01 AM EDT I SPOKE WITH DONOVAN, NEWS INTERN AT [facility]. THEY CAN TAKE PT BACK TODAY. THEY CAN PROVIDE TRANSPORTATION BACK TO FACILITY AROUND 3 PM. AWARE PT WILL NEED PT AT FACILITY, THEY USE [employer], DID LET HC LIAISON NOW. WENT TO [...] SECURE CHAT WITH CONNIE PEREZ REGARDING THIS. [facility] HospitalDmzgxb16-26-4464 Note* Care Coordination - Shikha Gray RN - 06/20/2023 11:01 AM EDT I SPOKE WITH DONOVAN, NEWS INTERN AT [facility]. THEY CAN TAKE PT BACK TODAY. THEY CAN PROVIDE TRANSPORTATION BACK TO FACILITY AROUND 3 PM. AWARE PT WILL NEED PT AT FACILITY, THEY USE [employer], DID LET HC LIAISON NOW. WENT TO [...] SECURE CHAT WITH CONNIE PEREZ REGARDING THIS. [facility] HospitalZsiwwh95-31-0962 Hospital course Narrative* Connie Perez, DIE MAKER - HAND FINISHER - 06/20/2023 10:18 AM EDT Images from the original note were not included. Hospitalist Discharge Summary Ezar Gonzalez : 1935 Admit date: 06/16/2023 Discharge [...] as possible for a visit As needed [facility] Orthopedics Go to Appointment scheduled 06/26/23 at 10:[address] Givens. [address] Complexity of Follow up: [x] Moderate Complexity: follow up within 7-14 calendar days (28235) [] Severe Complexity: follow up within 7 calendar days (11907) Follow up Testing, Pending results or Referrals [...] time frame. Signed: Connie Perez APRN - [facility] 06/20/2023, 1:11 PM documented in this [facility]03-22-2024 [facility] Southepartment of Orthopedic Surgery Progress Note ASSESSMENT AND [...] off at this time. Please page resident transportation clerk on Secure Chat with concerns or should [...] in all distributions -Motor function intact to [facility]03-21-2024 Note PHYSICAL THERAPY [facility] Initial Evaluation Name/MRN: Ezra Gonzalez ([id number]) Evaluation Date: 06/19/2023 Date of : 1935 Admission Date: 06/16/2023 1:38 PM Age: 87 y.o. Room/Bed: [facility]707/[facility]70 A Discharge Recommendation: Home with Home health PT (return to [place]) Equipment Needed: No Assessment IMPRESSION: 87 y.o. pt admitted to [facility] for closed fracture RUE, s/p ORIF R humerus 06/17. They were Min A for bed mobility, Min A for transfers, and Min A for ambulation. Pt limited d/t balance. If from [place] where she can receive Min A for all ADLs and mobility. Would recommend return to [place] and [facility] PT at discharge. Diagnosis: closed fracture [...] correction Ambulation Ambulation 1 Assistive device(s) used: NAIL STICKER Assist level: Min Assist Distance (ft): 15' [...] Raw Score (No Stairs) : 18 JH-HLM -HL Score: Walked 25 ft or more (i.e. [...] eval, 1 FA) Dillon (more content not included)...[facility]03-21-2024 Note* Care Coordination - Shikha Gray RN - 06/19/2023 2:05 PM EDT DAY #1 S/P ORIF OF RIGHT ARM. WAITING FOR PT/OT EVALS FOR DC PLANNING. [facility] HospitalDvijoo46-78-4157 Note* Care Coordination - Shikha Gray RN - 06/19/2023 2:05 PM EDT DAY #1 S/P ORIF OF RIGHT ARM. WAITING FOR PT/OT EVALS FOR DC PLANNING. [facility] HospitalTsaaua63-89-4956 NoteOCCUPATIONAL THERAPY [facility] Initial Evaluation Name/MRN: Ezra Gonzalez ([id number]) Evaluation Date: 06/19/2023 Date of : 1935 Admission Date: 06/16/2023 1:38 PM Age: 87 y.o. Room/Bed: E7-707/E7707 A Discharge Recommendation: Continue to assess pending [...] 06/19/23 Expected End: 07/17/23 (more content not included)...[facility] [id number] Note Hospitalist Progress Note 06/19/2023 Subjective: Admit Date: 06/16/2023 PCP: No primary care provider on file. Room#: N1-666/K8-277 A BRIEF HOSPITAL COURSE: Ezra is a [...] Full Code Anticipated Dischar (more content not included)...[facility] 06-19-2023 NoteDepartment of Orthopedic Surgery Progress [...] -Sensation and motor exam limited 2/2 block [facility] 06-18-2023 NotePatient: Ezra Gonzalez Procedure Summary Date: 06/18/23 Room / Location: [address] Operating Room Anesthesia Start: 1541 Anesthesia [...] discharged once all PACU criteria has been met.[facility] [id number] NotePatient: Ezra Gonzalez Procedure Summary Date: 06/18/23 Room / Location: [facility] Operating Room Anesthesia Start: 1541 Anesthesia Stop: [...] factors for PONV (4556F) Patient received at leaset 2 prophylactic Rx PONV anti-emtic agents of [...] start time until discharged from PACU (G2148) MIPS #404 Anesthesiology Smoking Abstinence The patient is [...] Allowed opportunity for questions and acknowledgement of understanding.[facility]03-20-2024 Note* Perioperative Nursing Note - Irina Khan RN - 06/18/2023 8:11 PM EDT Pt states no need to contact family. RN on floor states she will call pt's son,. [facility] HospitalLnlzjz49-23-7244 Note* Perioperative Nursing Note - Irina Khan RN - 06/18/2023 8:11 PM EDT Pt states no need to contact family. RN on floor states she will call pt's son,. [address]Vsgzof50-00-1416 NoteAirway Date/Time: 06/18/2023 3:56 PM Urgency: scheduled General Information and Staff Patient location during procedure: Procedural Resident/LAY OUT DRAFTER: Sae Lora CRNA Performed: LAY OUT DRAFTER Indications and Patient Condition Indications for airway [...] (cm): 21 Number of attempts at approach: [address] [place], [place] 1661603-20-2024 Note Peripheral IV Date/Time: 06/18/2023 4:00 PM Inserted by: JANNETTE Ivey CRNA Placement Needle size: 20 G Laterality: left Location: upper arm. Local anesthetic: none Site prep: alcohol Technique: ultrasound guided Attempts: [address] [place], [place] 1661603-20-2024 NotePeripheral Block Time Out: 06/18/2023 3:28 PM Patient location during procedure: Procedural Start time: 06/18/2023 3:28 PM End time: 06/18/2023 3:32 PM Reason for block: at surgeon's request and post-op pain management Staffing Performed: LAY OUT DRAFTER Resident/LAY OUT DRAFTER: JANNETTE Ivey CRNA Preanesthetic Checklist Completed: patient [...] No paresthesias reported by patient during injectionMedications yuiEGLQCseauc-zmwuqcgnkys-ewcehtkjmbw (TAP) syringe - Injection 30 mL - 06/18/2023 3:28:00 [facility]03-20-2024 NotePatient: Ezra Gonzalez Procedure Information Date/Time: 06/18/23 1530 Procedure: OPEN REDUCTION INTERNAL FIXATION RIGHT DISTAL HUMERUS (Right: Arm Upper) - requesting 330, if can't go at 330 will consider friday Location: [facility] OR [address] [place] [address] Operating Room Surgeons: Benitez Givens MD Relevant [...] by: Thong Francois DO on 06/17/2023 6:39 [facility] 06-18-2023 Hospital Discharge instructions* Discharge Instructions* Evette [...] Emergency Contact: Patito [place] Mobile Relation: Son Assessment Nurse Practitioner needed? No Secondary Emergency Contact: Ty [place] [...] (78.9 kg) Mental Status: {MITCHEL Patient Mental Status:54295} IV Access: {MITCHEL IV Access:67974} Nursing Mobility/ADLs: Walking {MALLY ADL:64728::Independent} Transfer {MALLY ADL:88874::Independent} Bathing {MALLY ADL:23599::Independent} Dressing {MALLY ADL:39255::Independent} Toileting {MALLY ADL:27811::Independent} Feeding {MALLY ADL:55195::Independent} Supervisory Historian {MALLY ADL:39120::Independent} Med Delivery {yes/no:90074} Wound Care Documentation and Therapy: Wound/Incision 06/18/23 Incision Arm Anterior;Right;Upper (Active) Site Assessment Clean;Dry 06/19/232147 Treatments Sling 06/19/232147 Primary Dressing Xeroform 06/19/23 1024 Dressing Status Clean, dry & intact 06/19/232147 Number of days: 1 Elimination: Continence: Bowel: {yes/no:19204} Bladder: {yes/no:75087} Urinary Catheter: {MITCHEL Urinary Catheter:46651} Colostomy/Ileostomy/Ileal Conduit: {YES / NO:} Date of Last BM: No intake or output data in the 24 hours ending 06/20/23 1025 I/O last 3 completed shifts: In: 711 (9 mL/kg) [P.O.:280; I.V.:114 (1.4 mL/kg); IV Piggyback:317] Out: 600 (7.6 mL/kg) [Urine:350 (0.1 mL/kg/hr); Blood:250] Weight: 78.9 kg Safety Concerns: {MITCHEL Safety Concerns:54543} Impairments/Disabilities: {MITCHEL Impairments/Disabilities:08196} Nutrition Therapy: Current Nutrition Therapy: {MITCHEL Diet List:87393} Routes of Feeding: {routes of feedin} Liquids: {liquid consistency:54044} Daily Fluid Restriction: {daily fluid restriction:91553} Last Modified Barium Swallow with Video (Video Swallowing Test): {done not done:29018} Treatments at the Time of Hospital Discharge: Respiratory Treatments: Oxygen Therapy: {Therapy; copd oxygen:57448} Ventilator: {MITCHEL Ventilator:33699} Rehab Therapies: {GEN THERAPY DISCIPLINE SCAL:6963103} Weight Bearing Status/Restrictions: {POD WEIGHT BEARIN} Other Medical Equipment (for information only, NOT a DME order): {Assistive Devices DME:13229} Other Treatments: Patient's personal belongings (please select all that are sent with patient): {MITCHEL Patient Belongings:09475} RN SIGNATURE: {E-signature:57150} CASE MANAGEMENT/SOCIAL WORK SECTION Inpatient Status Date: 06/16/23 Readmission Risk Assessment Score: @READMISSIONRISKDETAILS@ Discharging to Facility/ Agency Discharging to [facility]/ [facility] Address: [address] [place] [address] Name: BRUCE MCARTHUR Address:[address] [phone] ~28.4 [address] Fax: Dialysis Facility (if applicable) Name: Address: Dialysis Schedule: Phone: Fax: [employer]/Account Development Specialist signature: ICIAN SECTION Prognosis: good Condition at [...] in H&P PHYSICIAN SIGNATURE: documented in this [facility]03-20-2024 Note* Brief Op Note - Lexa Aparicio MD - 06/18/2023 3:42 PM EDT Date: 06/16/2023 - 06/18/2023 Location: [facility] OR Name: Ezra Gonzalez, : 1935, Diagnosis Pre-op Diagnosis * Closed displaced fracture of medial condyle of right humerus, initial encounter [S42.331A] Post-op Diagnosis * Closed displaced fracture of medial condyle of right humerus, initial encounter [S42.461A] Procedures OPEN REDUCTION INTERNAL FIXATION RIGHT DISTAL HUMERUS 02314 - [place] [employer] HUMERAL SHFT FX W/PLATE/SCREWS W/WOCERCLAGE Surgeons * Benitez Givens - Primary Procedure Summary Anesthesia: * No anesthesia type entered * ASA: III Estimated Blood Loss: Minimal Drains: * None in log * Staff: Tassel Maker: Vivian Herrera RN Scrub Person: Linda Alvarez [...] Givens in 2 weeks -Ortho to follow. [employer] Phone: 1(262) 389-997103-20-2024 Note* Brief Op Note - Lexa Aparicio MD - 06/18/2023 3:42 PM EDT Date: 06/16/2023 - 06/18/2023 Location: [facility] OR Name: Ezra Gonzalez, : 1935, Diagnosis Pre-op Diagnosis * Closed displaced fracture of medial condyle of right humerus, initial encounter [S42.186D] Post-op Diagnosis * Closed displaced fracture of medial condyle of right humerus, initial encounter [S42.411A] Procedures OPEN REDUCTION INTERNAL FIXATION RIGHT DISTAL HUMERUS 63071 - [place] [employer] HUMERAL SHFT FX W/PLATE/SCREWS W/WOCERCLAGE Surgeons * Benitez Givens - Primary Procedure Summary Anesthesia: * No anesthesia type entered * ASA: III Estimated Blood Loss: Minimal Drains: * None in log * Staff: Tassel Maker: Vivian Herrera RN Scrub Person: Linda Alvarez [...] Givens in 2 weeks -Ortho to follow. ip.access Work Phone: 1(775) 424-424003-20-2024 Note* Perioperative Nursing Note - Deisy Gonzalez RN - 06/18/2023 3:29 PM EDT Patients wallet and watch locked up with security. OR notified patient states she has latex allergy Patients purse and glasses taken to pacu ip.accessTzjdma46-28-1619 Note* Perioperative Nursing Note - Deisy Gonzalez RN - 06/18/2023 3:29 PM EDT Patients wallet and watch locked up with security. OR notified patient states she has latex allergy Patients purse and glasses [facility] to pacu [facility]iContainersBnitkt87-13-9335 Note* Care Coordination - Shikha Gray RN - 06/18/2023 1:03 PM EDT Care Managment Initial Assessment Date: 06/18/2023 Patient Name: Ezra Gonzalez : 1935 Patient Information Source of Information: Patient Cognition/Language: WFL - Within Functional Limits Permission given to speak with patient community health representative/caregiver as indicated: No Confirmation of Payer with patient/family: Yes Payer Name: [facility] : No Confirmation of Primary Care Physician: Confirmed Primary Caregiver: Self If assistance needed, confirmed caregiver ready, willing and able to care for patient at discharge: Confirmed with: Living Arrangements Current Residence: Number of Floors Number of Entry Steps: Bed/Bath Levels: Facility: Assisted Living Facility Name[facility] Plan to Return: Yes Lives with: Alone Support Systems: Children Activities of Daily Living Ambulation: Independent Bathing/Dressing: Independent Elimination/Continence/Toileting: Independent Feeding: Independent Who Assists with Activities of Daily Living: Instrumental Activities of Daily Living Prescription Coverage: Yes Pharmacy Used: Medication Management: (AL STAFF) Transportation/Shopping: Assistance Provider Transportation/Shopping Assistance Provider Name: [employer] [address] Transportation Mode: Needs Assistance with Transportation [...] WILL CONTINUE TO FOLLOW. Shikha Gray RN [facility] HospitalAjatnq62-12-7879 Note* Care Coordination - Shikha Gray RN - 06/18/2023 1:03 PM EDT Care Managment Initial Assessment Date: 06/18/2023 Patient Name: Ezra Gonzalez : 1935 Patient Information Source of Information: Patient Cognition/Language: WFL - Within Functional Limits Permission given to speak with patient community health representative/caregiver as indicated: No Confirmation of Payer with patient/family: Yes Payer Name: [facility] [place]: No Confirmation of Primary Care Physician: Confirmed Primary Caregiver: Self If assistance needed, confirmed caregiver ready, willing and able to care for patient at discharge: Confirmed with: Living Arrangements Current Residence: Number of Floors Number of Entry Steps: Bed/Bath Levels: Facility: Assisted Living Facility Name: [facility] Plan to Return: Yes Lives with: Alone Support Systems: Children Activities of Daily Living Ambulation: Independent Bathing/Dressing: Independent Elimination/Continence/Toileting: Independent Feeding: Independent Who Assists with Activities of Daily Living: Instrumental Activities of Daily Living Prescription Coverage: Yes Pharmacy Used: Medication Management: (AL STAFF) Transportation/Shopping: Assistance Provider Transportation/Shopping Assistance Provider Name: [employer] [address] Transportation Mode: Needs Assistance with Transportation [...] WILL CONTINUE TO FOLLOW. Shikha Gray RN [facility] HospitalEvobfs05-10-9872 NoteHospitalist Progress Note 06/18/2023 Subjective: Admit Date: 06/16/2023 PCP: No primary care provider on file. Room#: E3-609/H6-389 A BRIEF HOSPITAL COURSE: Ezra is a [...] Primary Emergency Contact: GillesrodriguePatito Mobile Relation: Son Assessment Nurse Practitioner needed? No Se (more content not included)...[facility]03-20-2024 Note Department of Orthopedic Surgery Progress [...] radial/median/ulnar/axillary nerve distributions -Motor + AIN/PIN/ulnar nerve functionsForest View Hospital03-19-2024 Plan of care note* Care Plan - Yvan Sepulveda RN - 06/17/2023 11:35 PM EDT The patient is Moderately Stable - Low risk of patient condition declining or worsening The patient's goals for the shift include rest and pain control The clinical goals for the shift include rest and pain control [address]Rifzsp38-21-6590 Nurse Note* Yvan Sepulveda RN - 06/17/2023 9:22 PM EDT Patient home medication list updated, provider made aware. [address]kn[address]t50-32-1991 Nurse Note* Yvan Sepulveda RN - 06/17/2023 9:22 PM EDT Patient home medication list updated, provider made aware. documented in this [address]19-2024 Emergency department Note* Di Reyna RN - 06/17/2023 11:52 AM EDT Patient resting in bed at this time, equal unlabored respirations noted and no acute distress, callbell within reach Di Reyna RN 06/17/23 1153 [address]Wxfcau71-08-2721 Emergency department Note* Di Reyna RN - [...] request US IV line. Juanjo Pringle RN 06/16/238 * NADIA Ruiz - 06/16/2023 12:38 PM EDT Images from the original note were not included. EMERGENCY DEPARTMENT ENCOUNTER Pt Name: Ezra Gonzalez Birthdate 1935 Date of evaluation: 06/16/2023 ED Provider: NADIA Ruiz CHIEF COMPLAINT Chief Complaint Patient presents with Arm Injury Pt arrives via [facility] from [facility] with complaints of right elbow fracture.Patient was [...] injury anywhere else. Patient was evaluated at [facility] emergency department prior to arrival and was noted to have a distal humerus fracture. Patient was transferred to [facility] ED for orthopedic consultation. Patient denies any [...] Culture. Procedure Abnormality Status --------- ------ Complete Urinalysis[[id number]] Please view results for these tests on the individual orders. COMPLETE URINALYSIS All other labs were within normal range or not returned as of this dictation. EMERGENCY DEPARTMENT COURSE and DIFFERENTIAL DIAGNOSIS/MDM: Vitals: Vitals: 06/16/23 1339 06/16/23 1400 06/16/23 1600 BP: (!) 180/90 (!) 136/100 (!) 172/91 BP Location: Left arm Pulse: 82 87 75 Resp: Temp: 36.7 C (98.1 F) TempSrc: Oral [...] right arm injury. Patient was seen at [facility] prior to arrival was noted to have a distal humerus fracture. Patient transferred to [facility] ED for orthopedic consultation. Nursing notes and medical records reviewed, no recent visits or studies currently patient's presenting symptoms. Differential considerations included distal humerus fracture. Initial medical management includes no initial medical management was initially in the ED. Patient was given 12.5 mcg of fentanyl prior to arrival. Initial workup includes CBC, BMP, PT/INR, type and screen, x-ray right elbow. CT head from [place] ED -shows no signs of acute cranial abnormalities. CXR from [place] ED prior to arrival -blunting of bilateral [...] to care: None noted. Consulted orthopedics, Dr. Demario Farrell evaluated patient in the emergency department. Traction [...] signed) Emergency Medicine Provider NADIA Ruiz 06/16/23 1634 * Sae Conde MD - 06/16/2023 12:38 PM EDT Emergency Department Encounter [facility] EMERGENCY DEPT Patient: Ezra Gonzalez : 1935 [...] dictating provider for clarification.) Sae Conde MD [facility] Sae Conde MD 06/16/23 1626 documented in this [facility]03-19-2024 Emergency department Note* Alia Foster RN - 06/17/2023 10:00 AM EDT Pt O2 desaturating to mid 80s after receiving dilaudid IV. Pt placed on 2L NC and immediately back up to 95%. MD notified Alia Foster RN 06/17/23 1031 [facility] HospitalFjxkez27-87-0068 NoteHospitalist Progress Note 06/17/2023 Subjective: Admit Date: [...] does not feel safe going back to [place] at this time. Since patient staying ortho [...] Emergency Contact: Patito [place] Mobile Relation: Son Assessment Nurse Practitioner needed? No Secondary Emergency Contact: Ty [place] Mobile Relation: Son Connie PerezJANNETTE - [facility] Division of Hospitalist Medicine [facility]03-19-2024 NoteDepartment of Orthopedic Surgery Progress Note ASSESSMENT [...] ulnar nerve distributions -Motor + AIN/PIN/ulnar nerve functionsForest View Hospital03-18-2024 Emergency department Note* Juanjo Pringle RN [...] US IV line. Juanjo Pringle RN 06/16/23 3372 [facility] HospitalGwhiaw98-77-5110 NoteAttending History and Physical Admit Date: 06/16/2023 [...] Pain control am labs, (more content not included)...[facility]03-18-2024 History and physical note* aJyshree Cortez MD - 06/16/2023 4:59 PM EDT [...] Emergency Contact: Patito [place] Mobile Relation: Son Assessment Nurse Practitioner needed? No Secondary Emergency Contact: Ty [place] Mobile Relation: Son Jayshree Cortez MD Division of Hospitalist Medicine [facility] [employer] Phone: 1(821) 385-298303-18-2024 History and physical note* Jayshree Cortez MD [...] Emergency Contact: Patito [place] Mobile Relation: Son Assessment Nurse Practitioner needed? No Secondary Emergency Contact: Ty [place] Mobile Relation: Son Jayshree Cortez MD Division of Hospitalist Medicine [facility] documented in this [facility]03-18-2024 Physician Emergency department Note* NADIA Ruiz - 06/16/2023 12:38 PM EDT Images from the original note were not included. EMERGENCY DEPARTMENT ENCOUNTER Pt Name: Ezra Gonzalez Birthdate 1935 Date of evaluation: 06/16/2023 ED Provider: NADIA Ruiz CHIEF COMPLAINT Chief Complaint Patient presents with Arm Injury Pt arrives via [facility] from [facility] with complaints of right elbow fracture.Patient was [...] injury anywhere else. Patient was evaluated at [facility] emergency department prior to arrival and was noted to have a distal humerus fracture. Patient was transferred to [facility] ED for orthopedic consultation. Patient denies any [...] Culture. Procedure Abnormality Status --------- ------ Complete Urinalysis[[id number]] Please view results for these tests on [...] right arm injury. Patient was seen at [facility] prior to arrival was noted to have a distal humerus fracture. Patient transferred to [facility] ED for orthopedic consultation. Nursing notes and medical records reviewed, no recent visits or studies currently patient's presenting symptoms. Differential considerations included distal humerus fracture. Initial medical management includes no initial medical management was initially in the ED. Patient was given 12.5 mcg of fentanyl prior to arrival. Initial workup includes CBC, BMP, PT/INR, type and screen, x-ray right elbow. CT head from [place] ED -shows no signs of acute cranial abnormalities. CXR from [place] ED prior to arrival -blunting of bilateral [...] Emergency Medicine Provider NADIA Ruiz 06/16/23 1635 [facility] [id number] Physician Emergency department Note* Sae Conde MD - 06/16/2023 12:38 PM EDT Emergency Department Encounter [facility] Patient: Ezra Gonzalez : 1935 [...] [employer] Sae Conde MD 06/16/23 1626 [facility] [place] Phone: 1(725) 720-182409-30-2023 Discharge summary Author Lali Pimentel [facility] December 27, 2022 10:31pm Note Date/Time December 27, 2022 3:52pm [facility] Medical Records Department [address] [place] [address] Emergency Department Summary 12/27/22 MR#: [id number] Acct: [id number] Name: EZRA GONZALEZ Rep #:[id number] : 1935 87 From: Lali Pimentel MD PCP: Dr. Rosemary Doran MD Status:ADM MARIELOS Location: [place] [address] HPI History of Present Illness Chief Complaint: [...] repeat a phrase her speech is garbled. [facility] Medical History Atherosclerotic heart disease of [place] coronary artery without angina pectoris Chronic diastolic [...] % (Auto) 57.4 Lymph % (Auto) 27.9 Island % (Auto) 10.8 H Eos % (Auto) [...] troponin is normal at 10. Neurology from [facility] felt that the patient should be [...] Triage Chief Complaint: Stroke Alert ED Provider: aLli Pimentel Dx/Rx/DC Orders Clinical Impression: Difficulty with [...] Provider] - Disposition Disposition: Acute Care Hospital [facility] What to do if you have Problems For any increased pain, shortness of breath, bleeding, nausea or vomiting, chestpain, or any unexpected problems, contact your Primary Care Provider. Call [facility] ([phone]) or report to the closest Emergency Room. Call 911 if necessary. 12/27/222230 <Electronically signed by Lali Pimentel MD> Cosigner Signature (if applicable): CC: Dr. Rosemary Doran MD ~ Signed [facility] Work Phone: [phone]) 692-850109-29-2023 History and physical note Author Lynn Horn [facility] December 27, 2022 6:54pm Note Date/Time December 27, 2022 5:12pm [facility] Medical Records Department [address] [place] [address] H&P Exam - Hospitalist 12/27/22 1709 MR#: [id number] Acct: [id number] Name: EZRA GONZALEZ Rep #:[id number] : 1935 87 From: Lynn Horn DO PCP: Dr. Rosemary Doran MD Status:ADM MARIELOS Location: [facility] [id number] HPI - General General Date of Admission: 12/27/22 Date of Service: 12/27/22 Chief Complaint: Speech abnormalities HPI Narrative EZRA GONZALEZ, is a 87 F who presented to the emergency department at [facility] on 12/27/2022 with speech abnormalities that started after 1 PM this afternoon. She resides at [facility]. She was last known well at 1 [...] will add aspirin 81 mg as well [facility] Medical History Atherosclerotic heart disease of [place] coronary artery without angina pectoris Chronic diastolic [...] % (Auto) 57.4, Lymph % (Auto) 27.9, Island % (Auto) 10.8 H, Eos % (Auto) [...] on admission Charges/Coding Visit Charges Inpatient E&M: 27860 Init Hosp L2 12/27/22 1077 <Electronically signed by Lynn Horn DO> Cosigner Signature (if applicable): CC: Dr. Rosemary Doran MD; Dr. Lynn Horn DO~ Signed [facility] Work Phone: [phone]) 362-567809-14-2023 Discharge summary Author María Crane [facility] December 12, 2022 1:40pm Note Date/Time December 12, 2022 1:40pm [facility] Physical Therapy [facility] [address] [place] [address] [address] [place] [address] / REHABILITATION SERVICES DISCHARGE SUMMARY MR#: [id number] Acct: [id number] Name: EZRA GONZALEZ Rep #: [id number] : 1935 87 From: María Cooley Referring Dr.: Dr. Anant Juarez MD Status: REG RCR Insurance: [facility] [id number] SELF PAY INSURANCE Patient Information Patient Information: EZRA GONZAELZ was seen in my office for initial [...] Dr. Anant Juarez MD ~ ELR Signed [facility] Work Phone: [phone] 994-238311-17-2007 Evaluation note* Diagnosis Onset Date Resolution Status Chronic diastolic (congestive) heart failure chronic Essential (primary) hypertension chronic Paroxysmal atrial fibrillation chronic History of coronary artery stent placement February 142006 resolved [facility] Work Phone: [phone] 658-536811-17-2007 Evaluation note* Diagnosis Onset Date Resolution Status Chronic diastolic (congestive) heart failure chronic Essential (primary) hypertension chronic History of coronary artery stent placement February 142006 resolved Brain TIA resolved Carotid stenosis acute Difficulty with speech acute Dysarthria resolved Polyneuropathy acute [facility] Work Phone: [phone] 220-281811-17-2007 Evaluation note* Diagnosis Onset Date Resolution Status Chronic diastolic (congestive) heart failure chronic Essential (primary) hypertension chronic History of coronary artery stent placement February 142006 resolved Brain TIA resolved Carotid stenosis acute Difficulty with speech acute Dysarthria resolved Abnormality of gait and mobility acute Carotid stenosis acute Dementia acute Polyneuropathy acute Transient ischemic attack re solved [facility] Work Phone: [phone] Evaluation note* Diagnosis Onset Date Resolution Status Longstanding persistent atrial fibrillation acute Essential (primary) hypertension chronic History of coronary artery stent placement February 142006 resolved Dementia acute Epilepsy acute Polyneuropathy acute Transient ischemic attack re solved [facility] Work Phone: Consult note Author Chucky Carney [facility] June 16, 2023 10:15am Note Date/Time June 16, 2023 10: 14am [facility] Medical Records Department [address] [place] [address] Consultation - Orthopedics 06/16/23 1012 MR#: [id number] Acct: [id number] Name: EZRA GONZALEZ Rep #:[id number] : 1935 87 From: Chucky Carney MD PCP: Dr. Rosemary Doran MD Status:REG ER Location: ED HPI Consult Data Date of Consult: 06/16/23 HPI Narrative HPI Narrative: EZRA GONZALEZ, is a 87 F who presents with a right distal humerus fracture. Patient apparently is in senior care there a fall. According to the ED physician Dr. Mack who called me today this is a closed neurovascularly intact injury. [facility] Medical History (Updated 06/16/23 @ 10:13 by Chucky Carney MD) Atherosclerotic heart disease of [place] coronary artery without angina pectoris Chronic diastolic [...] % (Auto) 67.8, Lymph % (Auto) 23.0, Island% (Auto) 7.0, Eos % (Auto) 1.3, Baso [...] applicable): CC: Dr. Rosemary Doran MD~ Signed [facility] Work Phone: Discharge summary Author Neri Mitchell [facility] November 14, 2022 11:57am Note Date/Time November 14, 2022 11 :10am [facility] Medical Records Department [address] [place] [address] Emergency Department Summary 11/14/22 MR#: [id number] Acct: [id number] Name: EZRA GONZALEZ Rep #:[id number] : 1935 87 From: Neri Mitchell MD [...] is on warfarin has history of TIAs. [facility] Medical History Atherosclerotic heart disease of [place] coronary artery without angina pectoris Chronic diastolic [...] deficits noted Neuro Narrative: Aphasic. Follows commands. Carey Coma Scale: document GCS findings Spontaneous Obeys [...] % (Auto) 64.0 Lymph % (Auto) 24.9 Island % (Auto) 7.8 Eos % (Auto) 2.4 [...] Ban Avila MD at 11:23 EDT , ADDENDUM: 11/14/22 1134 IMPRESSION: No acute [...] No evidence for large vessel occlusion the resighini of [place] region. N.B. : The above Results were Read Back by Ban Avila MD to Neri Mitchell MD, and understanding confirmed on 11/14/2022 11:41:26 (ET). Electronically Signed: Ban Avila MD at 11:41 EDT , ADDENDUM: 11/14/22 1148 IMPRESSION: No evidence for significant stenosis or occlusion in the carotid or vertebral arteries of the neck. No evidence for large vessel occlusion the resighini of [place] region. N.B. : The above [...] Fibrillation Management Discussion w/another healthcare provider: Hospitalist, Structural Fitter (Stroke neurology Dr. Tamze) and Radiologist (At 1121 for NCCT, negative for bleed) Stroke Documentation Questions Stroke Team Activated: Yes Critical Care Time Critical Care Time: Yes Critical care time (excluding procedures): 30-74 minutes (37 min), Including time spent:, Discussing w/Patient &/or Family/Insurance And Financial Services Agent, Discussing w/Consultants, Arranging Admission or Transfer and Performing Direct Patient Care at Bedside Discharge Plan Dx/Rx/DC Orders Clinical Impression: Brain TIA, Paroxysmal atrial fibrillation, Subtherapeutic international normalized ratio (INR) Disposition Disposition: Acute Care Hospital [facility] What to do if you have Problems For any increased pain, shortness of breath, bleeding, nausea or vomiting, chestpain, or any unexpected problems, contact your Primary Care Provider. Call [facility] ([phone]) or report to the closest Emergency Room. Call 911 if necessary. 11/14/22 1157 <Electronically signed by Neri Mitchell MD> Cosigner Signature (if applicable): CC: Dr. Rosemary Doran MD ~ Signed [facility] Work Phone: Discharge summary Author Sae Carballo [facility] December 28, 2022 11:09am Note Date/Time December 28, 2022 11:08am [facility] Medical Records Department [address] [place] [address] Instructions for Home/Discharge Instructions 12/28/22 1107 MR#: [id number] Acct: [id number] Name: EZRA GONZALEZ Rep #:[id number] : 1935 87 From: Sae fleming MD PCP: Dr. Rosemary Doran MD [...] MD; Dr. Lynn Horn DO ~ Signed [facility] Work Phone: evaluation note* Diagnosis Onset Date Resolution Status Atherosclerotic heart diseas e of [place] coronary artery without angina pectoris chronic Chronic diastolic (congestive) heart failure chronic Essential (primary) hypertension chronic Hyperlipidemia chronic Paroxysmal atrial fibrillation chronic [facility] Work Phone: evaluation note* Diagnosis Onset Date Resolution Status Abnormality of gait and mobility acute Carotid stenosis acute Dementia acute Polyneuropathy acute Transient ischemic attack re solved [facility] Work Phone: Evaluation note* Diagnosis Onset Date Resolution Status Abnormality of gait and mobility acute Carotid stenosis acute Dementia acute Polyneuropathy acute Transient ischemic attack re solved Chronic diastolic (congestive) heart failure chronic Essential (primary) hypertension chronic Paroxysmal atrial fibrillation chronic History of coronary artery stent placement February 142006 resolved [facility] Work Phone: Evaluation note* Diagnosis Onset [...] ratio (INR) acute Paroxysmal atrial fibrillation chronic [facility] Work Phone: Evaluation note* Diagnosis Onset Date Resolution Status Abnormality of gait and mobility acute Carotid stenosis acute Dementia acute Polyneuropathy acute Transient ischemic attack re solved Chronic diastolic (congestive) heart failure chronic Essential (primary) hypertension chronic History of coronary artery stent placement February 142006 resolved Brain TIA resolved Carotid stenosis acute [facility] Work Phone: Evaluation note* Diagnosis Onset Date Resolution Status Abnormality of gait and mobility acute Carotid stenosis acute Dementia acute Polyneuropathy acute Transient ischemic attack re solved Chronic diastolic (congestive) heart failure chronic Essential (primary) hypertension chronic History of coronary artery stent placement February 142006 resolved Brain TIA resolved Carotid stenosis acute Difficulty with speech acute Dysarthria acute [facility] Work Phone: Evaluation note* Diagnosis Onset Date Resolution Status Brain TIA resolved Carotid stenosis acute Difficulty with speech acute Dysarthria resolved Abnormality of gait and mobility acute Carotid stenosis acute Dementia acute Polyneuropathy acute Transient ischemic attack re solved [facility] Work Phone: Evaluation note* Diagnosis Onset Date Resolution Status Dementia acute Epilepsy acute Polyneuropathy acute Transient ischemic attack re solved [facility] Work Phone: Evaluation note* Diagnosis Onset Date Resolution Status Dementia acute Epilepsy acute Polyneuropathy acute Transient ischemic attack re solved Longstanding persistent atrial fibrillation acute Essential (primary) hypertension chronic History of coronary artery stent placement February 142006 resolved Dementia acute Epilepsy acute Polyneuropathy acute Transient ischemic attack re solved [facility] Work Phone: Evaluation note* Diagnosis Closed displaced fracture of medial condyle of right humerus, initial encounter- Primary Closed displaced fracture of medial condyle of right humerus, initial encounter documented in this encounter [facility] Discharge instructions Additional Instructions Your work-up today does not show signs of heart attack or heart damage. Your Coumadin level/INR is therapeutic at 2.7. Please follow-up with your family doctor for repeat evaluation or return to the ER if you have any [facility] Work Phone: Hospital Discharge instructionsAmbulatory Orders* Physical Therapy Referral Location: None Selected [facility] Work Phone: Hospital Discharge instructions Additional Instructions Will need to follow-up Lamictal level since it is a send out. Recommend follow- up appointment with her neurologist [facility] Work Phone: Reason for referral (narrative)No reason for referral information availableWOhio State Health System Work Phone: Summary Purpose Family History Relationship Condition Age at Onset Recorded Date/T maggy father Coronary artery disease Unknown brother Coronary artery disease Unknown Advance Directives Advance Directive Response Recorded Date/ Time Advance Directives Yes November 10:13am Living Will No February 11 12:11am Power of Ladies Underwear Operator No February 11, 2022 12:11am Advance Directive Response Recorded Date/ Time Advance Directives Yes November 11:13am Living Will No February 11 1:11am Power of Ladies Underwear Operator No February 11, 2022 1:11am Advance Directive Response Recorded Date/ Time Advance Directives Yes November 11:13am Living Will No September 08, 2022 3:33pm Power of Ladies Underwear Operator No September 08 3:33pm Advance Directive Response Recorded Date/ Time Advance Directives Yes November 11:13am Living Will No November 14 11:07am Power of Ladies Underwear Operator No November 14 023 11:07am Advance Directive Response Recorded Date/ Time Name of Medical Power of Ladies Underwear Operator Ty Charlee nguyen November 18, 2022 7:55am Advance Directives Yes November 11:13am Living Will Yes November 18 7:55am Power of Ladies Underwear Operator Yes November 18 023 7:55am Name of Medical Power of Ladies Underwear Operator Wilfredo [place] November 14, 2022 1:26pm Advance Directive Response Recorded Date/ Time Name of Medical Power of Ladies Underwear Operator Ty Campoverdei wendy November 18, 2022 7:55am Name of Medical Power of Ladies Underwear Operator Wilfredo Chiangastrodrigue November 14, 2022 1:26pm Advance Directives Yes November 11:13am Living Will No December 27, 2022 7:16pm Power of Ladies Underwear Operator No November 7:16pm Advance Directive Response Recorded Date/ Time Name of Medical Power of Ladies Underwear Operator Ty nguyen November 18, 2022 6:55am Name of Medical Power of Ladies Underwear Operator Wilfredo [place] November 14, 2022 12:26pm Advance Directives Yes November 10:13am Living Will No December 27, 2022 6:16pm Power of Ladies Underwear Operator No November 6:16pm Advance Directive Response Recorded Date/ Time Advance Directives Yes November 10:13am Living Will No December 27, 2022 6:16pm Power of Ladies Underwear Operator No November 6:16pm Advance Directive Response Recorded Date/ Time Name of Medical Power of Ladies Underwear Operator SON--JACK June 16, 2023 8:32am Advance Directives Yes November 11:13am Living Will Yes June 16, 2023 8:32am Power of Ladies Underwear Operator Yes June 15 8:32am Latest Code Status on File Code Status Date Activated Date Inactivated Comments Full Code 06/16/2023 4:39 PM 06/20/2023 7:46 PM Advance Directive Response Recorded Date/ Time Living Will Yes June 16, 2023 7:32am Power of Ladies Underwear Operator Yes June 15 7:32am Advance Directives Yes November 10:13am Advance Directive Response Recorded Date/ Time Living Will Yes June 16, 2023 8:32am Do you have a Healthcare Power of Ladies Underwear Operator? Yes June 16, 2023 8:32am Advance Directives Yes November 11:13am Advance Directive Response Recorded Date/ Time Living Will No December 27, 2022 7:16pm Do you have a Healthcare Power of Ladies Underwear Operator? No December 27, 2022 7:16pm Living Will Yes June 16, 2023 8:32am Do you have a Healthcare Power of Ladies Underwear Operator? Yes June 16, 2023 8:32am Advance Directives Yes November 11:13am Advance Directive Response Recorded Date/ Time Living Will No December 27, 2022 7:16pm Do you have a Healthcare Power of Ladies Underwear Operator? No December 27, 2022 7:16pm Do you have a Healthcare Power of Ladies Underwear Operator? Yes September 08, 2024 12:26pm Advance Directives Yes November 11:13am Advance Directive Response Recorded Date/ Time Living Will No December 27, 2022 7:16pm Do you have a Healthcare Power of Ladies Underwear Operator? No December 27, 2022 7:16pm Do you have a Healthcare Power of Ladies Underwear Operator? Yes September 10, 2024 5:17pm Do you have a Healthcare Power of Ladies Underwear Operator? 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 EORDER FOR LABS FROM DR JUAREZ Consult LEFT ICA STENOSIS Reason for Visit Abnormality of gait and mobility Carotid stenosis Dementia Polyneuropathy Transient ischemic attack Chief Complaint TIA SYMPTOMS, HX OF DM, 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 EORDER FOR LABS FROM DR JUAREZ Consult LEFT ICA STENOSIS 6 M FU W EXTRACTOR OPERATOR per EXTRACTOR OPERATOR GAIT,POLYNEUROPATHY,LUMBAR COMPRESSION FX/RX HERE GAIT DISORDER Reason for Visit Abnormality of gait and mobility Carotid stenosis Dementia Polyneuropathy Transient ischemic attack Chronic diastolic (congestive) heart failure Essential (primary) hypertension Paroxysmal atrial fibrillation History of coronary artery stent placement Chief Complaint TIA SYMPTOMS, HX OF DM, 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 EORDER FOR LABS FROM DR JUAREZ Consult LEFT ICA STENOSIS 6 M FU W EXTRACTOR OPERATOR per EXTRACTOR OPERATOR GAIT,POLYNEUROPATHY,LUMBAR COMPRESSION FX/RX HERE GAIT DISORDER TIA Reason for Visit Abnormality of gait and mobility Carotid stenosis Dementia Polyneuropathy Transient ischemic attack Chronic diastolic (congestive) heart failure Essential (primary) hypertension Paroxysmal atrial fibrillation History of coronary artery stent placement Brain TIA Subtherapeutic international normalized ratio (INR) Paroxysmal atrial fibrillation Chief Complaint TIA SYMPTOMS, HX OF DM, 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 EORDER FOR LABS FROM DR JUAREZ Consult LEFT ICA STENOSIS 6 M FU W EXTRACTOR OPERATOR per EXTRACTOR OPERATOR GAIT,POLYNEUROPATHY,LUMBAR COMPRESSION FX/RX HERE GAIT DISORDER TIA TIA (cardiology) TIA (cardiology) tia Reason for Visit Abnormality of gait and mobility Carotid stenosis Dementia Polyneuropathy Transient ischemic attack Chronic diastolic (congestive) heart failure Essential (primary) hypertension Paroxysmal atrial fibrillation History of coronary artery stent placement Brain TIA Subtherapeutic international normalized ratio (INR) Paroxysmal atrial fibrillation Chief Complaint TIA SYMPTOMS, HX OF DM, 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 EORDER FOR LABS FROM DR JUAREZ Consult LEFT ICA STENOSIS 6 M FU W EXTRACTOR OPERATOR per EXTRACTOR OPERATOR GAIT,POLYNEUROPATHY,LUMBAR COMPRESSION FX/RX HERE GAIT DISORDER TIA TIA (cardiology) TIA (cardiology) tia SENIOR CARE LAB WORK CONSULT-CAROTID STENOSIS Reason for Visit Abnormality of gait and mobility Carotid stenosis Dementia Polyneuropathy Transient ischemic attack Chronic diastolic (congestive) heart failure Essential (primary) hypertension History of coronary artery stent placement Brain TIA Carotid stenosis Chief Complaint TIA SYMPTOMS, HX OF DM, AFIB confusion residential (current) use 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 EORDER FOR LABS FROM DR JUAREZ Consult LEFT ICA STENOSIS 6 M FU W EXTRACTOR OPERATOR per EXTRACTOR OPERATOR GAIT,POLYNEUROPATHY,LUMBAR COMPRESSION FX/RX HERE GAIT DISORDER TIA [...] TIA SYMPTOMS, HX OF DM, 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 EORDER FOR LABS FROM DR JUAREZ Consult LEFT ICA STENOSIS 6 M FU W EXTRACTOR OPERATOR per EXTRACTOR OPERATOR GAIT,POLYNEUROPATHY,LUMBAR COMPRESSION FX/RX HERE GAIT DISORDER TIA [...] LEFT ICA STENOSIS 6 M FU W EXTRACTOR OPERATOR per EXTRACTOR OPERATOR GAIT,POLYNEUROPATHY,LUMBAR COMPRESSION FX/RX HERE GAIT DISORDER TIA [...] Polyneuropathy Chief Complaint 6 M FU W EXTRACTOR OPERATOR per EXTRACTOR OPERATOR GAIT,POLYNEUROPATHY,LUMBAR COMPRESSION FX/RX HERE GAIT DISORDER TIA [...] VS SEIZURE September 10, 2024 4:03 pm Chief Complaint Admit Date SENIOR CARE LAB [...] VS SEIZURE September 10, 2024 4:03 pm STROKE VS SEIZURE September 11, 2024 12:1 4pm Reason for Visit Admit Date Longstanding persistent atrial fibrillat ion July 01, 2024 10:35am Essential (primary) hypertension July 012024 10:35am History of coronary artery stent placeme nt July 01, 2024 10:35am Difficulty with speech September 10, 2024 4 :03pm Chief Complaint Admit Date SENIOR CARE LAB [...] VS SEIZURE September 10, 2024 4:03 pm STROKE VS SEIZURE September 11, 2024 12:1 4pm 2 SEIZURES/ IN [facility] September 13, 2024 2:04 pm EORDERS September 13, 2024 3:03 pm Reason for Visit Admit Date Longstanding persistent atrial fibrillat ion July 01, 2024 10:35am Essential (primary) hypertension July 012024 10:35am History of coronary artery stent placeme nt July 01, 2024 10:35am Difficulty with speech September 10, 2024 4 :03pm Epilepsy September 13, 2024 2:04 pm Additional Source Comments INFORMATION SOURCE (unrecogn ized section and content) DATE CREATED AUTHOR 02/04/2018 [facility] DATE CREATED AUTHOR AUTHOR'S ORGANIZ ATION 11/12/2019 [facility] DATE CREATED AUTHOR AUTHOR'S ORGANIZ ATION 06/26/2023 [facility] DATE CREATED AUTHOR AUTHOR'S ORGANIZ ATION 09/13/2024 [facility] Source Comments (unrecognize d section and content) In the event this informatio n is protected by the Federal Confidentiality of Alcohol and Drug Abuse Patient Records regulations: The Federal rules restrict any use of the information to criminally investigate or prosecute any alcohol or drug abuse patient.[facility] the event this information is protected by the Federal Confidentiality of Alcohol and Drug Abuse Patient Records regulations: The Federal rules restrict any use of the information to criminally investigate or prosecute any alcohol or drug abuse patient.[facility] the event this information is protected by the Federal Confidentiality of Alcohol and Drug Abuse Patient Records regulations: The Federal rules restrict any use of the information to criminally investigate or prosecute any alcohol or drug abuse patient.[facility] the event this information is protected by the Federal Confidentiality of Alcohol and Drug Abuse Patient Records regulations: The Federal rules restrict any use of the information to criminally investigate or prosecute any alcohol or drug abuse patient.[facility] the event this information is protected by the Federal Confidentiality of Alcohol and Drug Abuse Patient Records regulations: The Federal rules restrict any use of the information to criminally investigate or prosecute any alcohol or drug abuse patient.[facility] Reason for Visit (unrecogniz ed section and content) Reason Onset Date Comments Refill Request Refill Request 11/11/2019 Reason Comments Arm Injury Pt arrives [facility] with complaints of right elbow fracture. Patient was sent here for ortho consult. No pain on arrival. Arrives with right arm splinted. Specialty Diagnoses / Procedures Referred By Contac t Referred To Contact Diagnoses Closed displaced fracture of medial condyle of right humerus, initial encounter Procedures .. Jayshree Cortez MD [address] [place] [address] [facility] [address] [place] [id number] Referral ID Status Reason Start Date Expiration Date Visits Re quested Visits Authorized [id number] 1 1 Telephone Encounter - Anne Marie [...] Visit date not found Patient Phone numbers: [phone] (home) Request is for script(s) to be [...] Provider Active Start: September 10, 2024 MAMADOU HICKS MD Other Provider Active Start: J une [...] 06, 2024 End: April 06, 2024 Dr. Chucyk MARTINEZ MD Attending Provider Active Start: April [...] Provider, Other Provider Ac tive Dr. Sae aCrballo MD Attending Provider, Other Provider Active Team Status: Inactive Member Role Status Dates Dr. Rosemary Doran MD Primary Care Provider Active Dr. Anant Juarez MD Attending Provider, Referring Provider Active Team Status: Inactive Member Role Status Dates Dr. Rosemary Doran MD Primary Care Provider Active Dr. Mo Corea DO Attending Provider, Emergency P rorafael Active Team Status: Inactive Member Role Status [...] MD Primary Care Provider Active Suze Prebish AVIATION PROJECT MANAGER, AVIATION PROJECT MANAGER-C Attending Provider, Referring Pr ovider Active Team Status: Inactive Member Role Status Dates Dr. Rosemary Doran MD Primary Care Prov ider, Attending Provider, Referring Provider Active Team Status: Inactive Member Role Status Dates Dr. Rosemary Doran MD Primary Care Provider Active Dr. Lc Barcenas DO Attending Provider, Emergency Pro vider Active [...] Rosemary Doran MD Primary Care Provider Active Fibre Technologist Relationship Specialty Start Date End Date Alexandra Hagen [address] [place] [id number] PCP - General Family Medicine 06/20/23 Team [...] St art: August 18, 2024 Team Status: Inactive Member Role Status Dates Dr. Chucky Ochoa DO Primary Care Provider Active Start: September 10, 2024 End: September 11, 2024 Dr. Teri Garcia DO Emergency Provider Active Start: September 10, 2024 End: September 11, 2024 Dr. Matthew Oro DO Admit Provider Active Start: September 10, 2024 End: September 11, 2024 Dr. Matthew Oro DO Attending Provider Active Start: September 10, 2024 End: September 11, 2024 Dr. Olivia Trinidad MD Other Provider Active Start: September 10, 2024 End: September 11, 2024 Dr. Janett French MD Other Provider Active Start: September 10, 2024 End: September 11, 2024 Julia Carpenter MD Other Provider Active Start : September 10, 2024 End: September 11, 2024 Keyshawn Swan MS Other Provider Active Start: J 2024 End: September 11, 2024 Dr. Dmitriy Diop MD Other Provider Active Sta rt: September 10, 2024 End: September 11, 2024 Meagan Edmondson MD Other Provider Active Start: September 10, 2024 End: September 11, 2024 MAMADOU HICKS MD Other Provider Active Start: 2024 End: September 11, 2024 Cara Batista MD Other Provider Active Start : September 10, 2024 End: September 11, 2024 Dr. Lorelei Pruett MD Other Provider Active Start : September 10, 2024 End: September 11, 2024 Robinson Mayorga MD Other Provider Active Start: September 10, 2024 End: September 11, 2024 Aura Thurman MD Other Provider Active Start: September 10, 2024 End: September 11, 2024 Eric Crowell MD Other Provider Active Start: 2024 End: September 11, 2024 Camila Mitchell MD Other Provider Active Start : September 10, 2024 End: September 11, 2024 Dr. Glenna Jacobson DO Other Provider Active St art: September 10, 2024 End: September 11, 2024 Dr. Lenin Tamez MD Other Provider Active Sta rt: September 10, 2024 End: September 11, 2024 Dr. Ml Morris MD Other Provider Active Start : September 10, 2024 End: September 11, 2024 Dr. Chauncey Vaughn MD Other Provider Active Start: September 10, 2024 End: September 11, 2024 Dr. Nirmal Hummel MD Other Provider Active Start : September 10, 2024 End: September 11, 2024 Dr. Rubén Michel MD Other Provider Active St art: September 10, 2024 End: September 11, 2024 Dr. Iggy Graves MD Other Provider Active Sta rt: September 10, 2024 End: September 11, 2024 Dr. Liz Merrill MD Other Provider Active Start: September 10, 2024 End: September 11, 2024 Dr. Bala Perez MD Other Provider Active St art: September 10, 2024 End: September 11, 2024 Dr. Castillo Jones MD Other Provider Active Star t: September 10, 2024 End: September 11, 2024 Dr. Daniel Leroy MD Other Provider Active St art: September 10, 2024 End: September 11, 2024 Dr. Cindy Horn MD Other Provider Active Start: September 10, 2024 End: September 11, 2024 Ashu Leonard MD Other Provider Active Start: September 10, 2024 End: September 11, 2024 Team Status: Active Member Role Status Dates Dr. Chucky Ochoa DO Primary Care Provider Active Start: September 11, 2024 Dr. Teri Garcia DO Emergency Provider Active Start: September 11, 2024 Dr. Matthew Oro DO Admit Provider Active Start: September 11, 2024 Dr. Matthew Oro DO Attending Provider Active Start: September 11, 2024 Dr. Matthew Oro DO Other Provider Active Start: September 11, 2024 Dr. Olivia Trinidad MD Other Provider Active Start: September 11, 2024 Dr. Janett French MD Other Provider Active Start: September 11, 2024 Julia Carpenter MD Other Provider Active Start : September 11, 2024 Keyshawn Swan MS Other Provider Active Start: J une 2024 Dr. Dmitriy Diop MD Other Provider Active Sta rt: September 11, 2024 Meagan Edmondson MD Other Provider Active Start: September 11, 2024 MAMADOU HICKS MD Other Provider Active Start: J une 2024 Cara Batista MD Other Provider Active Start : September 11, 2024 Dr. Lorelei Pruett MD Other Provider Active Start : September 11, 2024 Robinson Mayorga MD Other Provider Active Start: September 11, 2024 Aura Thurman MD Other Provider Active Start: September 11, 2024 Eric Crowell MD Other Provider Active Start: Ju ne 2024 Camila Mitchell MD Other Provider Active Start : September 11, 2024 Dr. Glenna Jacobson DO Other Provider Active St art: September 11, 2024 Dr. Lenin Tamez MD Other Provider Active Sta rt: September 11, 2024 Dr. Ml Morris MD Other Provider Active Start : September 11, 2024 Dr. Chauncey Vaughn MD Other Provider Active Start: September 11, 2024 Dr. Nirmal Hummel MD Other Provider Active Start : September 11, 2024 Dr. Rubén Michel MD Other Provider Active St art: September 11, 2024 Dr. Iggy Graves MD Other Provider Active Sta rt: September 11, 2024 Dr. Liz Merrill MD Other Provider Active Start: September 11, 2024 Dr. Bala Perez MD Other Provider Active St art: September 11, 2024 Dr. Castillo Jones MD Other Provider Active Star t: September 11, 2024 Dr. Daniel Leroy MD Other Provider Active St art: September 11, 2024 Dr. Cindy Horn MD Other Provider Active Start: September 11, 2024 Ashu Leonard MD Other Provider Active Start: September 11, 2024 Team Status: Inactive Member Role Status Dates Dr. Anoop Blackmon MD Attending Provider Active Sta rt: September 08, 2024 End: September 08, 2024 Dr. Anoop Blackmon MD Referring Provider Active Sta rt: September 08, 2024 End: September 08, 2024 Dr. Anoop Blackmon MD Emergency Provider Active Sta rt: September 08, 2024 End: September 08, 2024 Dr. Chucky MARTINEZ MD Primary Care Provider Active Start: September 08, 2024 End: September 08, 2024 Team Status: Inactive Member Role Status Dates Dr. Chucky Ochoa DO Primary Care Provider Active Start: September 13, 2024 End: September 13, 2024 Dr. Chucky Ochoa DO Referring Provider Active Start: September 13, 2024 End: September 13, 2024 Dr. Anant Jaurez MD Attending Provider Active Start: September 13, 2024 End: September 13, 2024 Team Status: Active Member Role Status Dates Dr. Chucky Ochoa DO Primary Care Provider Active Start: September 13, 2024 Dr. Anant Juarez MD Attending Provider Active Start: September 13, 2024 Dr. Anant Juarez MD Referring Provider Active Start: September 13, 2024 Team Status: Inactive Member Role Status Dates Dr. Chucky Ochoa DO Primary Care Provider Active Start: September 13, 2024 End: September 13, 2024 Dr. Anant Juarez MD Attending Provider Active Start: September 13, 2024 End: September 13, 2024 Dr. Anant Juarez MD Referring Provider Active Start: September 13, 2024 End: September 13, 2024 Scheduled Active and Recently Administ ered Medications (unrecognized section and content) Medication Order 06/18/2023 06/19/2023 06/20/2023 atorvastatin (Lipitor) tablet 40 mg 40 mg, Oral, Nightly, First dose on Fri06/17/23 at 2145 1512 (MAY Hold - Provider: Automatic Transfer Provider - Reason: Patient not available)2025 (MAY Unhold - Provider: Automatic Transfer Provider)2126 (Given - Provider: Kirsty Vicente, RN) 2147 (Given - Provider: Kirsty Vicente [...] RN)0837 (New Bag - Provider: Leona Sidhu, JAYME)0907 (Stopped - Provider: Leona Sidhu, RN) docusate sodium (Colace) capsule 100 mg 100 mg, Oral, 2 times daily, First dose on Fri06/18/23 at 2100, Do not crush or break. 1512 (MAY Hold - Provider: Automatic Transfer Provider - Reason: Patient not available)2025 (MAY Unhold - Provider: Automatic Transfer Provider)2126 (Given - Provider: Kirsty Vicente RN) 0837 (Given - Provider: Leona Sidhu, JAYME)2147 (Given - Provider: Kirsty Vicente RN) 0924 (Given - Provider: Juanjo Villalba RN) donepezil (Aricept) tablet 10 mg 10 [...] - Provider: Odessa Wayne RN - Reason: NPO)1512 (MAR Hold - Provider: Automatic Transfer Provider [...] 5 Units Above 400 6 Units 151 ([facility] Hold - Provider: Automatic Transfer Provider - Reason: Patient not available)2025 ([facility] Unhold - Provider: Automatic Transfer Provider)2131 (Given - Provider: Kirsty Vicente RN - Comment: bs 189) 2146 (Given - Provider: Kirsty Vicente RN) lamoTRIgine (LaMICtal) tablet 50 mg 50 mg, Oral, 2 times daily, First dose on Fri06/17/23 at 2145 0841 (Given - Provider: Odessa Wayne RN)1511 ([facility] Hold - Provider: Automatic Transfer Provider - Reason: Patient not available)2025 ([facility] Unhold - Provider: Automatic Transfer Provider)2126 (Given - Provider: Kirsty Vicente RN) 0837 (Given - Provider: Leona Sidhu RN)2147 (Given - Provider: Kirsty Vicente RN) 09 (Given - Provider: Juanjo Villalba, JAYME) metoprolol tartrate (Lopressor) tablet 25 mg 25 mg, Oral, 2 times daily, First dose on Fri06/17/23 at 2145 0840 (Given - Provider: Odessa Wayne RN)1511 ([facility] Hold - Provider: Automatic Transfer Provider - Reason: Patient not available)2025 ([facility] Unhold - Provider: Automatic Transfer Provider)2126 (Given - Provider: Kirsty Vicente RN) 0837 (Given - Provider: Leona Sidhu, JAYME)2147 (Given - Provider: Kirsty Vicente RN) 0924 (Given - Provider: Juanjo Villalba, RN) pantoprazole (ProtoNix) EC tablet 40 mg 40 mg, Oral, Daily before breakfast, First dose on Fri06/18/23 at 0600, Substituted for omeprazole (Prilosec). Do not crush, chew, or split. 0600 (Not Given - Provider: Yvan Sepulveda RN - Reason: NPO)1511 ([facility] Hold - Provider: Automatic Transfer Provider - Reason: Patient not available)2025 ([facility] Unhold - Provider: Automatic Transfer Provider) 0540 (Given - Provider: Kirsty Vicente RN) 0513 (Given - Provider: Kirsty Vicente RN) warfarin (Coumadin) tablet 2.5 mg 2.5 mg, Oral, Once Warfarin, On Fri06/20/23 at 1700, For 1 dose 1700 (Canceled Entry - Provider: Automatic Discharge Provider - Comment: Automatically canceled at discontinue of medication order) warfarin (Coumadin) tablet 5 mg (COMPLETED) 5 mg, Oral, Once Warfarin, On Mamta 06/19/23 at 1700, For 1 dose 1738 (Given - Provider: Leona Sidhu, JAYME) Continuous Medication Order 06/18/2023 06/19/2023 06/20/2023 sodium [...] mg from all sources in 24 hours. 151 (MAY Hold - Provider: Automatic Transfer Provider - Reason: Patient not available)2025 (MAY Unhold - Provider: Automatic Transfer Provider) dextrose 5 % infusion 100 mL/hr, IntraVENous, PRN, Blood sugar less than 70mg/dL, Starting on Tu06/17/23 at 2131, Start infusion following administration of dextrose 50% or glucagon. 151 (MAY Hold - Provider: Automatic Transfer Provider [...] Glucostabilizer, dose as instructed per system. 1511 ([facility] Hold - Provider: Automatic Transfer Provider - Reason: Patient not available)2025 ([facility] Unhold - Provider: Automatic Transfer Provider) glucagon [...] 15 minutes x2 and notify provider. 1511 ([facility] Hold - Provider: Automatic Transfer Provider - Reason: Patient not available)2025 ([facility] Unhold - Provider: Automatic Transfer Provider) glucose [...] 15 minutes x2 and notify provider. 1511 ([facility] Hold - Provider: Automatic Transfer Provider - Reason: Patient not available)2025 ([facility] Unhold - Provider: Automatic Transfer Provider) HYDROmorphone [...] of each other unless specifically ordered. 1511 ([facility] Hold - Provider: Automatic Transfer Provider - Reason: Patient not available)2025 ([facility] Unhold - Provider: Automatic Transfer Provider) naloxone (Narcan) injection 0.4 mg 0.4 mg, IntraVENous, Every 5 min PRN, opioid reversal, respiratory depression, Starting on Fri06/16/23 at 1647, +++ For RR <10, pinpoint pupils, over sedation for opioid reversal - MUST notify transportation clerk provider immediately after first dose, may give IM or SQ if no IV access +++ 1511 ([facility] Hold - Provider: Automatic Transfer Provider - Reason: Patient not available)2025 ([facility] Unhold - Provider: Automatic Transfer Provider) ondansetron (Zofran) injection 4 mg(Linked Group 3) 4 mg, IntraVENous, Every 6 hours PRN, nausea, vomiting, Starting on Fri06/16/23 at 1639, 1st Line. Give IV if patient is unable to take orally. If inadequate response within 60 minutes, proceed to next-line agent or contact provider if no further options ordered. 1511 ([facility] Hold - Provider: Automatic Transfer Provider - Reason: Patient not available)2025 ([facility] Unhold - Provider: Automatic Transfer Provider) ondansetron [...] from blister pack until just before administering. 151 ([facility] Hold - Provider: Automatic Transfer Provider - Reason: Patient not available)2025 ([facility] Unhold - Provider: Automatic Transfer Provider) oxyCODONE (Roxicodone) immediate release tablet 2.5 mg(Linked Group 4) 2.5 mg, Oral, Every 4 hours PRN, moderate pain (4-6), Starting on Fri06/16/23 at 1639 151 ([facility] Hold - Provider: Automatic Transfer Provider - Reason: Patient not available)2025 ([facility] Unhold - Provider: Automatic Transfer Provider) 0924 (See Alternative - Provider: Juanjo Villalba RN) oxyCODONE (Roxicodone) immediate release tablet 5 mg(Linked Group 4) 5 mg, Oral, Every 4 hours PRN, severe pain (7-10), Starting on Fri06/16/23 at 1639 1512 (MAY Hold - Provider: Automatic Transfer Provider - Reason: Patient not available)2025 (MAY Unhold - Provider: Automatic Transfer Provider) 0924 (Given - Provider: Juanjo Villalba RN) polyethylene glycol (PEG) 3350 (Miralax) packet [...] BE BASED ON THE PRIMARY CLINICAL RECORDS. [employer] [facility]. provides no warranty or guarantee of the accuracy or completeness of information in this document.
--- OUTSIDE RECORDS SUMMARY | 2024-09-17 04:41 | XMS RPT_ITS | CCD ---
Author Organization [facility] Care Team Providers Care Mail Caller Name Role Phone LISHNEVSKI, ALEXIA Unavailable Unavailable [...] LISHNEVSKI, ALEXIA Unavailable Unavailable Villa Hebert Unavailable [phone] Patito Gonzalez Unavailable [phone] Nirmal Kemp Unavailable Mohan Álvarez Unavailable Bakari Chavarrianandpierce PatelClive Unavailable [phone] Rosemary Doran Primary Care Provider Lishnevski, Alexia Primary Care Provider Zenaida Henderson Unavailable Dr. Rosemary Doran Primary Care Provider Dr. Rosemary Doran Referring Provider Roof YARN DRY ROOM WORKER, YARN DRY ROOM WORKERChristina Arnett Attending Provider Dr. Rosemary Doran Primary [...] Oro DO Attending Provider Amos LENNON, Dr. Bakre Other Provider [phone] Dr. Janett French [...] Unavailable Dr. Matthew Oro DO Other Provider Neymar LENNON, Dr. Davalos Attending Provider Dr. Chucky Ochoa DO Referring Provider [phone] Jerrica LENNON, Dr. Ny Attending Provider [phone] Jerrica LENNON, Dr. Ny Referring Provider Chucky [...] Jolliff, Alexandra S Primary Care Unavailable Douglas, Buckhorn Attending Unavailable Jolliff, Alexandra S Referring Unavailable [...] Alexandra S Primary Care Unavailable Douglas OLS, Buckhorn Attending Unavailable Jolliff, Alexandra S Primary Care Unavailable Ochoa OLS, Chucky Attending Unavailable Jolliff, Alexandra S Primary Care Unavailable Ochoa OLS, Chucky Attending Unavailable Jolliff, Alexandra S Primary Care Unavailable Douglas OLS, Cesar Attending Unavailable Jolliff, Alexandra S Primary Care Unavailable Douglas OLS, Buckhorn Referring Unavailable Jolliff, Alexandra S Primary Care Unavailable nAant Juarez Referring Unavailable Anant Juarez Attending Unavailable [...] Robinson Consulting Unavailable Maturu, Aura Consulting Unavailable [place], Eric Consulting Unavailable Hinduja, Camila Consulting Unavailable [...] Robinson Consulting Unavailable Maturu, Aura Consulting Unavailable [place], Eric Consulting Unavailable Hinduja, Camila Consulting Unavailable [...] Alexandra S Primary Care Unavailable OchoaChucky Mitchell Referring Unavailable Jolliff, Alexandra S Primary Care Unavailable Cuhcky Wahlen Attending Unavailable Allergies Allergy Classification Reported Allergen(s) Allergy Type Date of Onset Reaction(s) Facility (20 sources) atorvastatin; 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: [ATORVASTATIN] Drug Allergy 5 Other: See Comments [facility] (20 sources) codeine; 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: [CODEINE] Drug Allergy 5 Unknown [facility] (20 sources) Latex; 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: [LATEX] Propensity to adverse reactions (disorder) 5 Rash, Itching [facility] (20 sources) meperidine; 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: [MEPERIDINE] Drug Allergy 5 GI Upset [facility] (20 sources) rosuvastatin; 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: [ROSUVASTATIN] Drug Allergy 5 Other: See Comments [facility] (20 sources) Amiodarone Drug Allergy 2 Hair falling out in gobs, hair loss [facility] (1 source) Amiodarone Drug Allergy [address] 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 Comment on above: Performed By: #### L 503.4003 ####[facility] [address] [place], [place], [id number] Venous blood ammonia measure mentOrdered By: Anant Juarez on 09-13-2024 Ammonia (P) [Moles/Vol] 28.9 umol/L [facility] Lamotrigine (Lamictal) Level on 09-12-2024 LAMOTRIGINE 1.2 ug/mL Low 2.0-20.[address] [facility] Comment on above: Result Comment: Dete ction Limit = 1.0 Performed at: [facility] [address] [id number] Telephone Information Clerk: Brandon Wells MD, Phone: [phone] Performed By: #### L 100.0100, L500.2500, L300.3900, L3300.4408 ####[facility] [address] [place], [address] Urine Cultureon 09-12-2024 URC Klebsiella pneumonia e sp pneum [place] Count 80,000-100,000 Klebsiella pneumoniae sp pneum: REACTION [...] TMP SMX Islt MELINDA <=20 S Normal [facility] Comment on above: Performed By: #### M 100.2200 ####[facility] [address] [place], [address] Anion gap in Serum or Plasma Ordered By: Matthew Oro on 09-11-2024 Anion gap [Moles/Vol] 12 mmol/L - [facility] BUN/creatinine ratioOrdered By: Matthew Oro on 09-11-2024 Urea nitrogen/Creatinine [Mass ratio] 30.4 mg/mg High - [facility] Basic Metabolic Profile (BMP )on 09-11-2024 BUN/CRE 30.4 RATIO High [facility] [facility] Comment on above: Order Comment: Comme nts: NPO at [place] prior to lipid panel Performed By: #### L 500.4100, L100.0500, L500.2500 #### [facility] Laboratory [address] [place], [address] Calcium [Mass/Vol] 8.8 mg/dL Normal 7.6-11.0 [facility] Comment on above: Order Comment: Comme nts: NPO at [place] prior to lipid panel Performed By: #### L 500.4100, L100.0500, L500.2500 #### [facility] [address] [place], [address] Chloride [Moles/Vol] 105 mmol/L Normal 98-108 [facility] Comment on above: Order Comment: Comme nts: NPO at [place] prior to lipid panel Performed By: #### L 500.4100, L100.0500, L500.2500 #### [facility] [address] [place], [address] CO2 [Moles/Vol] 21.6 mmol/L Normal 21.0-32.[address] [facility] Comment on above: Order Comment: Comme nts: NPO at [place] prior to lipid panel Performed By: #### L 500.4100, L100.0500, L500.2500 #### [facility] [address] [place], [address] Creatinine [Mass/Vol] 0.91 mg/dL Normal 0.70-1.20 [facility] Comment on above: Order Comment: Comme nts: NPO at [place] prior to lipid panel Performed By: #### L 500.4100, L100.0500, L500.2500 #### [facility] [address] [place], [address] ECRCL 41.34 ml/min Low 50-[address] [facility] Comment on above: Order Comment: Comme nts: NPO at [place] prior to lipid panel Performed By: #### L 500.4100, L100.0500, L500.2500 #### [facility] [address] [place], [address] GAP 12 Normal 5-[address] [facility] Comment on above: Order Comment: Comme nts: NPO at [place] prior to lipid panel Performed By: #### L 500.4100, L100.0500, L500.2500 #### [facility] [address] [place], [address] GFR/1.73 sq M.predicted among non-blacks MDRD (S/P/Bld) [Vol rate/Area] 61 mL/min/{1.73_m2} Normal >60 [facility] Comment on above: Order Comment: Comme nts: NPO at [place] prior to lipid panel Result Comment: mL/m in/1.73m2 CKD-EPI Creatinine Equation (2020) Performed By: #### L 500.4100, L100.0500, L500.2500 #### [facility] [address] [place], [address] Glucose [Mass/Vol] 118 mg/dL High 70-99 [facility] Comment on above: Order Comment: Comme nts: NPO at [place] prior to lipid panel Performed By: #### L 500.4100, L100.0500, L500.2500 #### [facility] [address] [place], [address] Potassium [Moles/Vol] 4.4 mmol/L Normal 3.3-5.1 [facility] Comment on above: Order Comment: Comme nts: NPO at [place] prior to lipid panel Performed By: #### L 500.4100, L100.0500, L500.2500 #### [facility] [address] [place], [address] Sodium [Moles/Vol] 139 mmol/L Normal 133-145 [facility] Comment on above: Order Comment: Comme nts: NPO at [place] prior to lipid panel Performed By: #### L 500.4100, L100.0500, L500.2500 #### [facility] [address] [place], [address] Urea nitrogen [Mass/Vol] 28 mg/dL High 4-[address] [facility] Comment on above: Order Comment: Comme nts: NPO at [place] prior to lipid panel Performed By: #### L 500.4100, L100.0500, L500.2500 #### [facility] [address] [place], [address] CBC-Complete Blood Cnt No Di ffon 09-11-2024 Erythrocyte distribution width (RBC) [Ratio] 12.8 % Normal 11.6-14.[address] [facility] Comment on above: Performed By: #### L 500.4100, L100.0500, L500.2500 #### [facility] [address] [place], [address] Hematocrit (Bld) [Volume fraction] 39.7 % Normal 37-[address] [facility] Comment on above: Performed By: #### L 500.4100, L100.0500, L500.2500 #### [facility] [address] [place], [address] Hemoglobin (Bld) [Mass/Vol] 13.1 g/dL Normal 12.0-15.[address] [facility] Comment on above: Performed By: #### L 500.4100, L100.0500, L500.2500 #### [facility] [address] [place], [address] MCH (RBC) [Entitic mass] 30.3 pg Normal 27.0-32.[address] [facility] Comment on above: Performed By: #### L 500.4100, L100.0500, L500.2500 #### [facility] [address] [place], [address] MCHC (RBC) [Mass/Vol] 33.0 g/dL Normal 32-36 [facility] Comment on above: Performed By: #### L 500.4100, L100.0500, L500.2500 #### [facility] [address] [place], [address] MCV (RBC) [Entitic vol] 91.7 fL Normal 81-[address] [facility] Comment on above: Performed By: #### L 500.4100, L100.0500, L500.2500 #### [facility] [address] [place], [address] Platelet mean volume (Bld) [Entitic vol] 10.7 fL Normal 6.2-12.[address] [facility] Comment on above: Performed By: #### L 500.4100, L100.0500, L500.2500 #### [facility] [address] [place], [address] Platelets (Bld) [#/Vol] 271 10*3/uL Normal 150-[address] [facility] Comment on above: Performed By: #### L 500.4100, L100.0500, L500.2500 #### [facility] [address] [place], [address] RBC (Bld) [#/Vol] 4.33 10*6/uL Normal 4.2-5.4 [facility] Comment on above: Performed By: #### L 500.4100, L100.0500, L500.2500 #### [facility] [address] [place], [address] RDW SD 42.8 fl Normal 35.1-43.[address] [facility] Comment on above: Performed By: #### L 500.4100, L100.0500, L500.2500 #### [facility] [address] [place], [address] WBC (Bld) [#/Vol] 12.2 10*3/uL High 4.4-11.0 [facility] Comment on above: Performed By: #### L 500.4100, L100.0500, L500.2500 #### [facility] [address] [place], [address] Calculated very low density lipoprotein (VLDL) cholesterol measurementOrdered By: Matthew Oro on 09-11-2024 Calculated very low density lipoprotein (VLDL) cholesterol measurement 16 mg/dL 5-[address] [facility] Carbon dioxide, total [Moles /volume] in Central venous bloodOrdered By: Matthew Oro on 09-11-2024 CO2 [Moles/Vol] 21.6 mmol/L 21.0-32.[address] [facility] Chloride assayOrdered By: Urban Oro on 09-11-2024 Chloride [Moles/Vol] 105 mmol/L 98-108 [facility] Discharge Instructionon 08-29 Discharge Instruction [facility] Medical Records Department [address] [place] [address] Instructions for Home/Discharge Instructions 09/11/24 1214 MR#: [id number] Acct: [id number] Name: EZRA GONZALEZ Rep #: [id number] : 1935 89 From: Matthew Oro DO [...] Thurman DO; Ashu Leonard MD Signed Normal [facility] Electroencephalogramon 09-[address] [facility]/Neurology [address] [place] [address] MR#: [id number] Acct: [id number] Name: LISAEZRAADAM TRUONG Rep #: [id number] : 1935 89 From: Castillo Jones MD Referring Dr: Status: ADM MARIELOS Location: [place] [address] Date: 09/10/24 Sex: F C EEG Results Procedure Details EEG Procedure Details: Inpatient routine EEG report performed at [facility] Study start time: 1326 on 09/11/24 End [...] is also evidence of mild diffuse encephalopathy. Nugyen Jones MD 09/11/24 1502 Date Castillo Jnoes MD CC: Dr. Matthew Oro DO; Dr. Castillo Jones MD; Dr. Chucky Ochoa DO Date Dictated: 09/11/24 150 Date Transcribed: 09/11/241501 Dry Yard Worker: [place] Signed Normal [facility] Erythrocyte distribution wid th ratioOrdered By: Matthew Oro on 09-11-2024 Erythrocyte distribution width (RBC) [Ratio] 12.8 % 11.6-14.[address] [facility] Erythrocyte distribution wid th standard deviationOrdered By: Matthew Oro on 09-11-2024 Erythrocyte distribution width (RBC) [Ratio] 42.8 fl 35.1-43.[address] [facility] Glomerular filtration rate ( GFR) estimation/1.73 sq m using serum, plasma, or whole bOrdered By: Matthew Oro on 09-11-2024 GFR/1.73 sq M.predicted among non-blacks MDRD (S/P/Bld) [Vol rate/Area] 61 mL/min/{1.73_m2} >60 [facility] Comment on above: mL/min/1.73m2 CKD-EP I Creatinine Equation (2020) Hematocrit Auto (Bld) [Volum e fraction]Ordered By: Matthew Oro on 09-11-2024 Hematocrit (Bld) [Volume fraction] 39.7 % 37-[address] [facility] Hemoglobin measurementOrdere d By: Matthew Oro on 09-11-2024 Hemoglobin (Bld) [Mass/Vol] 13.1 g/dL 12.0-15.[address] [facility] LDL calc ser/plasOrdered By: Matthew Oro on 09-11-2024 Cholesterol in LDL [Mass/Vol] 100 mg/dL [facility] Comment on above: Hijinbvcuy=038-707 m g/dL & Higher Uoqa=202 mg/dL or greater Lipid Profileon 09-11-2024 CHOL:HDL 3.[address] [facility] Comment on above: Order Comment: Comme nts: NPO at [place] prior to lipid panel Performed By: #### L 500.4100, L100.0500, L500.2500 ####[facility] [address] [facility] [place], [address] Cholesterol [Mass/Vol] 172 mg/dL Normal <=200 [facility] Comment on above: Order Comment: Comme nts: NPO at [place] prior to lipid panel Result Comment: Chol esterol level, Desirable <200 mg/dL Borderline high cholesterol 200-239 mg/dL High cholesterol >=240 mg/dL Recommendations of the NCEP Adult Treatment Panel for the following risk-cutoff thresholds for the [place] population. Performed By: #### L 500.4100, L100.0500, L500.2500 ####[facility] [address] [place], [address] Cholesterol in HDL [Mass/Vol] 57 mg/dL Normal [facility] Comment on above: Order Comment: Comme nts: NPO at [place] prior to lipid panel Result Comment: Halima onal Cholesterol Education Program (NCEP) guidelines: <40 mg/dL: Low HDL-cholesterol (major risk factor for CHD) >= 60 mg/dL: High HDL-cholesterol (negative risk factor for CHD) HDL-cholesterol is affected by a number of factors, e.g. smoking, exercise, hormones, sex and age. Performed By: #### L 500.4100, L100.0500, L500.2500 ####[facility] [address] [place], [address] Cholesterol in LDL [Mass/Vol] 100 mg/dL Normal [facility] Comment on above: Order Comment: Comme nts: NPO at [place] prior to lipid panel Result Comment: Bord rcmoea=124-577 mg/dL Higher Zxbc=841 mg/dL or greater Performed By: #### L 500.4100, L100.0500, L500.2500 ####[facility] [address] [place], [address] Cholesterol in VLDL [Mass/Vol] 16 mg/dL Normal 5-[address] [facility] Comment on above: Order Comment: Comme nts: NPO at [place] prior to lipid panel Performed By: #### L 500.4100, L100.0500, L500.2500 ####[facility] [address] [place], [address] Triglyceride [Mass/Vol] 78 mg/dL Normal [facility] Comment on above: Order Comment: Comme nts: NPO at [place] prior to lipid panel Result Comment: The drugs N-Acetylcysteine and Metamizole may falsely depress this assay. Normal range: <150 mg/dL Borderline High: 150-199 mg/dL High: 200-499 mg/dL Very High: >500 mg/dL Performed By: #### L 500.4100, L100.0500, L500.2500 ####[facility] [address] [place], [address] MCV (mean corpuscular volume ) determinationOrdered By: Matthew Oro on 09-11-2024 MCV (RBC) [Entitic vol] 91.7 fL 81-99 [facility] Mean corpuscular hemoglobin (MCH) determinationOrdered By: Matthew Oro on 09-11-2024 MCH (RBC) [Entitic mass] 30.3 pg 27.0-32.[address] [facility] Mean corpuscular hemoglobin concentration (MCHC) determinationOrdered By: Matthew Oro on 09-11-2024 MCHC (RBC) [Mass/Vol] 33.0 g/dL 32-36 [facility] Mean platelet volume determi nationOrdered By: Matthew Oro on 09-11-2024 Platelet mean volume (Bld) [Entitic vol] 10.7 fL 6.2-12.[address] [facility] Platelet countOrdered By: Urban Oro on 09-11-2024 Platelets (Bld) [#/Vol] 271 10*3/uL 150-[address] [facility] Potassium measurement (mass/ volume)Ordered By: Matthew Oro on 09-11-2024 Potassium (Unsp spec) [Mass/Vol] 4.4 mmol/L 3.3-5.[address] [facility] RBC Auto (Bld) [#/Vol]Ordere d By: Matthew Oro on 09-11-2024 RBC (Bld) [#/Vol] 4.33 10*6/uL 4.2-5.4 [facility] Screening total cholesterol/ high density lipoprotein (HDL) cholesterol ratioOrdered By: Matthew Oro on 09-11-2024 Cholesterol.total/Cholest felipe in HDL [Mass ratio] 3.03 {ratio} [facility] Serum creatinine measurement (mass/volume)Ordered By: Matthew Oro on 09-11-2024 Creatinine [Mass/Vol] 0.91 mg/dL 0.70-1.20 [facility] Serum glucose measurement (m ass/volume)Ordered By: Matthew Oro on 09-11-2024 Glucose [Mass/Vol] 118 mg/dL High 70-99 [facility] Serum or plasma calcium viktoria urement (mass/volume)Ordered By: Matthew Oro on 09-11-2024 Calcium [Mass/Vol] 8.8 mg/dL 7.6-11.0 [facility] Serum or plasma cholesterol in HDL measurement (mass/volume)Ordered By: Matthew Oro on 09-11-2024 Cholesterol in HDL [Mass/Vol] 57 mg/dL >[address] [facility] Comment on above: National Cholesterol Education Program (NCEP) guidelines:<40 mg/dL: Low HDL-cholesterol (major risk factor for CHD)>= 60 mg/dL: High HDL-cholesterol (negative risk factor for CHD)HDL-cholesterol is affected by a number of factors, e.g. smoking, exercise, hormones, sex and age. Serum or plasma cholesterol measurement (mass/volume)Ordered By: Matthew Oro on 09-11-2024 Cholesterol [Mass/Vol] 172 mg/dL <201 [facility] Comment on above: Cholesterol level, D esirable <200 mg/dLBorderline high cholesterol 200-239 mg/dLHigh cholesterol >=240 mg/dLRecommendations of the NCEP Adult Treatment Panel for the following risk-cutoff thresholds for the [place] population. Serum or plasma urea nitroge n measurement (mass/volume)Ordered By: Matthew Oro on 09-11-2024 Urea nitrogen [Mass/Vol] 28 mg/dL High 4-[address] [facility] Sodium levelOrdered By: All Oro on 09-11-2024 Sodium [Moles/Vol] 139 mmol/L 133-145 [facility] Triglycerides measurementOrd ered By: Matthew Oro on 09-11-2024 Triglyceride [Mass/Vol] 78 mg/dL <199 [facility] Comment on above: The drugs N-Acetylcy steine and Metamizole may falsely depress this assay. Normal range: <150 mg/dLBorderline High: 150-199 mg/dLHigh: 200-499 mg/dLVery High: >500 mg/dL White blood cell (WBC) count Ordered By: Matthew Oro on 09-11-2024 WBC (Bld) [#/Vol] 12.2 10*3/uL High 4.4-11.0 [facility] Absolute lymphocyte countOrd ered By: Teri Garcia on 09-10-2024 Lymphocytes Auto (Unsp spec) [#/Vol] 1.91 10*3/uL 0.83-4.[address] [facility] Absolute neutrophil countOrd ered By: Teri Garcia on 09-10-2024 Neutrophils (Bld) [#/Vol] 8.3 10*3/uL High 2.0-7.[address] [facility] Activated partial thrombopla stin time (aPTT) in platelet poor plasma by coagulation aOrdered By: Teri Garcia on 09-10-2024 aPTT Coag (PPP) [Time] 31.8 s 24.1-36.2 [facility] Anion gap in Serum or Plasma Ordered By: Teri Garcia on 09-10-2024 Anion gap [Moles/Vol] 12 mmol/L 5-15 [facility] Automated lymphocyte count a s percentage of total leukocytesOrdered By: Teri Garcia on 09-10-2024 Lymphocytes/100 WBC Auto (Unsp spec) 16.6 % Low 19-[address] [facility] BUN/creatinine ratioOrdered By: Teri Garcia on 09-10-2024 Urea nitrogen/Creatinine [Mass ratio] 34.8 mg/mg High 10-[address] [facility] Basic Metabolic Profile (BMP )on 09-10-2024 BUN/CRE 34.8 RATIO High 10-[address] [facility] Comment on above: Performed By: #### L 300.4310, L500.2500, L100.0100, L501.4021, L300.3900 ####[facility] [address] [place], [address] Calcium [Mass/Vol] 8.7 mg/dL Normal 7.6-11.0 [facility] Comment on above: Performed By: #### L 300.4310, L500.2500, L100.0100, L501.4021, L300.3900 ####[facility] [address] [place], [address] Chloride [Moles/Vol] 103 mmol/L Normal 98-108 [facility] Comment on above: Performed By: #### L 300.4310, L500.2500, L100.0100, L501.4021, L300.3900 ####[facility] [address] [place], [address] CO2 [Moles/Vol] 21.8 mmol/L Normal 21.0-32.[address] [facility] Comment on above: Performed By: #### L 300.4310, L500.2500, L100.0100, L501.4021, L300.3900 ####[facility] [address] [place], [address] Creatinine [Mass/Vol] 1.05 mg/dL Normal 0.70-1.20 [facility] Comment on above: Performed By: #### L 300.4310, L500.2500, L100.0100, L501.4021, L300.3900 ####[facility] [address] [place], [address] ECRCL 33.63 ml/min Low 50-250 [facility] [facility] Comment on above: Performed By: #### L 300.4310, L500.2500, L100.0100, L501.4021, L300.3900 ####[facility] [address] [place], [address] GAP 12 Normal 5-[address] [facility] Comment on above: Performed By: #### L 300.4310, L500.2500, L100.0100, L501.4021, L300.3900 ####[facility] [address] [place], [address] GFR/1.73 sq M.predicted among non-blacks MDRD (S/P/Bld) [Vol rate/Area] 51 mL/min/{1.73_m2} Low >60 [facility] Comment on above: Result Comment: mL/m in/1.73m2 CKD-EPI Creatinine Equation (2020) Performed By: #### L 300.4310, L500.2500, L100.0100, L501.4021, L300.3900 ####[facility] [address] [place], [address] Glucose [Mass/Vol] 131 mg/dL High 70-99 [facility] Comment on above: Performed By: #### L 300.4310, L500.2500, L100.0100, L501.4021, L300.3900 ####[facility] [address] [place], [address] Potassium [Moles/Vol] 4.4 mmol/L Normal 3.3-5.1 [facility] Comment on above: Result Comment: Hemo lysis present, Results??could be affected. ?? Performed By: #### L 300.4310, L500.2500, L100.0100, L501.4021, L300.3900 ####[facility] [address] [place], [address] Sodium [Moles/Vol] 137 mmol/L Normal 133-145 [facility] Comment on above: Performed By: #### L 300.4310, L500.2500, L100.0100, L501.4021, L300.3900 ####[facility] [address] [place], [address] Urea nitrogen [Mass/Vol] 37 mg/dL High 4-[address] [facility] Comment on above: Performed By: #### L 300.4310, L500.2500, L100.0100, L501.4021, L300.3900 ####[facility] [address] [place], [address] Basophil percentageOrdered B y: Teri Garcia on 09-10-2024 Basophils/100 WBC (Bld) 0.4 % 0-1 [facility] Bilirubin Test strip Ql (U)O rdered By: Teri Garcia on 09-10-2024 Bilirubin Ql (U) Negative Negative [facility] Brain without Contraston Brain without Contrast [facility] Imaging Services [address] [place] [address] Brain without Contrast MR#: [id number] Acct: [id number] Name: EZRA GONZALEZ Rep #: [id number] : 1935 F 89 From: Matthias Márquez MD PCP: Dr. Chucky Ochoa DO Status: ADM MARIELOS Study: Brain without Contrast Date of Exam: 09/10/24 Exam# [id number] Ordering Dr: Matthew Oro DO PROCEDURE: BRAIN [...] Atrophy and mild microvascular changes Reading Location: [facility] CC: Dr. Matthew Oro DO; Dr. Chucky Ochoa DO Dry Yard Worker: Signed Normal [facility] CBC W/Diff, Automatedon 08-29 Absolute Lymph 1.91 X10 3/uL Normal 0.83-4.[address] [facility] Comment on above: Performed By: #### L 300.4310, L500.2500, L100.0100, L501.4021, L300.3900 ####[facility] [address] [place], [address] Absolute Neut 8.3 X10 3/uL High 2.0-7.[address] [facility] Comment on above: Performed By: #### L 300.4310, L500.2500, L100.0100, L501.4021, L300.3900 ####[facility] [address] [place], [address] Basophils/100 WBC (Bld) 0.4 % Normal 0-1 [facility] Comment on above: Performed By: #### L 300.4310, L500.2500, L100.0100, L501.4021, L300.3900 ####[facility] [address] [place], [address] Eosinophils/100 WBC (Bld) 1.2 % Normal 0-[address] [facility] Comment on above: Performed By: #### L 300.4310, L500.2500, L100.0100, L501.4021, L300.3900 ####[facility] [address] [place], [address] Erythrocyte distribution width (RBC) [Ratio] 13.2 % Normal 11.6-14.[address] [facility] Comment on above: Performed By: #### L 300.4310, L500.2500, L100.0100, L501.4021, L300.3900 ####[facility] [address] [place], [address] Hematocrit (Bld) [Volume fraction] 41.7 % Normal 37-[address] [facility] Comment on above: Performed By: #### L 300.4310, L500.2500, L100.0100, L501.4021, L300.3900 ####[facility] [address] [place], [address] Hemoglobin (Bld) [Mass/Vol] 13.6 g/dL Normal 12.0-15.[address] [facility] Comment on above: Performed By: #### L 300.4310, L500.2500, L100.0100, L501.4021, L300.3900 ####[facility] [address] [place], [address] IG% 0.400 Normal 0.0-0.[address] [facility] Comment on above: Result Comment: IG% - Immature Granulocytes (promyelocytes, myelocytes and metamyelocytes) > 1% indicates that a LEFT SHIFT is Present. Performed By: #### L 300.4310, L500.2500, L100.0100, L501.4021, L300.3900 ####[facility] [address] [place], [address] Lymphocytes/100 WBC (Bld) 16.6 % Low 19-[address] [facility] Comment on above: Performed By: #### L 300.4310, L500.2500, L100.0100, L501.4021, L300.3900 ####[facility] [address] [place], [address] MCH (RBC) [Entitic mass] 30.6 pg Normal 27.0-32.[address] [facility] Comment on above: Performed By: #### L 300.4310, L500.2500, L100.0100, L501.4021, L300.3900 ####[facility] [address] [place], [address] MCHC (RBC) [Mass/Vol] 32.6 g/dL Normal 32-36 [facility] Comment on above: Performed By: #### L 300.4310, L500.2500, L100.0100, L501.4021, L300.3900 ####[facility] [address] [place], [address] MCV (RBC) [Entitic vol] 93.9 fL Normal 81-99 [facility] Comment on above: Performed By: #### L 300.4310, L500.2500, L100.0100, L501.4021, L300.3900 ####[facility] [address] [place], [address] Monocytes/100 WBC (Bld) 9.1 % Normal 0-10 [facility] Comment on above: Performed By: #### L 300.4310, L500.2500, L100.0100, L501.4021, L300.3900 ####[facility] [address] [place], [address] Neutrophils/100 WBC (Bld) 72.3 % High 47-[address] [facility] Comment on above: Performed By: #### L 300.4310, L500.2500, L100.0100, L501.4021, L300.3900 ####[facility] [address] [place], [address] Nucleated RBC (Bld) [#/Vol] 0 10*3/uL Normal 0-[address] [facility] Comment on above: Performed By: #### L 300.4310, L500.2500, L100.0100, L501.4021, L300.3900 ####[facility] [address] [place], [address] Platelet mean volume (Bld) [Entitic vol] 10.4 fL Normal 6.2-12.[address] [facility] Comment on above: Performed By: #### L 300.4310, L500.2500, L100.0100, L501.4021, L300.3900 ####[facility] [address] [place], [address] Platelets (Bld) [#/Vol] 269 10*3/uL Normal 150-[address] [facility] Comment on above: Performed By: #### L 300.4310, L500.2500, L100.0100, L501.4021, L300.3900 ####[facility] [address] [place], [address] RBC (Bld) [#/Vol] 4.44 10*6/uL Normal 4.2-5.4 [facility] Comment on above: Performed By: #### L 300.4310, L500.2500, L100.0100, L501.4021, L300.3900 ####[facility] [address] [place], [address] RDW SD 45.4 fl High 35.1-43.[address] [facility] Comment on above: Performed By: #### L 300.4310, L500.2500, L100.0100, L501.4021, L300.3900 ####[facility] [address] [place], [address] WBC (Bld) [#/Vol] 11.5 10*3/uL High 4.4-11.0 [facility] Comment on above: Performed By: #### L 300.4310, L500.2500, L100.0100, L501.4021, L300.3900 ####[facility] [address] [place], [address] Carbon dioxide, total [Moles /volume] in Central venous bloodOrdered By: Teri Garcia on 09-10-2024 CO2 [Moles/Vol] 21.8 mmol/L 21.0-32.[address] [facility] Chloride assayOrdered By: Adam Garcia on 09-10-2024 Chloride [Moles/Vol] 103 mmol/L 98-108 [facility] Emergency Department Summary on 09-10-2024 Emergency Department Summary [facility] Medical Records Department [address] [place] [address] Emergency Department Summary 09/10/24 MR#: [id number] Acct: [id number] Name: EZRA GONZALEZ Rep #: [id number] : 1935 89 From: Teri Garcia DO [...] son Wilfredo (her eldest son) phone number [phone]. He states that she follows with Dr. Juarez (neurology) and he suspects that this could be epileptic episodes. He also tells me that he talk to her about 615 this morning and she seemed a little off with her mentation as well as her pronunciation. 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 Normal [facility] Eosinophil percentageOrdered By: Teri Garcia on 09-10-2024 Eosinophils/100 WBC (Bld) 1.2 % 0-[address] [facility] Erythrocyte distribution wid th ratioOrdered By: Teri Jose on 09-10-2024 Erythrocyte distribution width (RBC) [Ratio] 13.2 % 11.6-14.[address] [facility] Erythrocyte distribution wid th standard deviationOrdered By: Teri Garcia on 09-10-2024 Erythrocyte distribution width (RBC) [Ratio] 45.4 fl High 35.1-43.[address] [facility] Glomerular filtration rate ( GFR) estimation/1.73 sq m using serum, plasma, or whole bOrdered By: Teri Garcia on 09-10-2024 GFR/1.73 sq M.predicted among non-blacks MDRD (S/P/Bld) [Vol rate/Area] 51 mL/min/{1.73_m2} Low >60 [facility] Comment on above: mL/min/1.73m2 CKD-EP I Creatinine Equation (2020) H AND P Exam - Hospital[place] 09-10-2024 H&P Exam - Hospitalist [facility] Medical Records Department [address] [place] [address] H P Exam - Hospitalist 09/10/24 1603 MR#: [id number] Acct: [id number] Name: EZRA OGNZALEZ Rep #: [id number] : 1935 89 From: Matthew Oro DO PCP: Dr. Chucky Ochoa, DO Status:ADM MARIELOS Location: [place] [address] HPI - General General Date of Admission: 09/10/24 Date of Service: 09/10/24 Chief Complaint: Dysarthria HPI Narrative EZRA GONZALEZ, is a 89 F who presented to [facility] ED on 09/10/2024 with dysarthria. Patient lives at assisted living at [place]. Has history of seizures and is on [...] any other acute concerns at this time. 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 Normal [facility] Hematocrit Auto (Bld) [Volum e fraction]Ordered By: Teri Garcia on 09-10-2024 Hematocrit (Bld) [Volume fraction] 41.7 % 37-[address] [facility] Hemoglobin measurementOrdere d By: Teri Garcia on 09-10-2024 Hemoglobin (Bld) [Mass/Vol] 13.6 g/dL 12.0-15.[address] [facility] Immature granulocytes/100 WB C Auto (Bld)Ordered By: Teri Garcia on 09-10-2024 Immature granulocytes/100 WBC (Bld) 0.400 % 0.0-0.[address] [facility] Comment on above: IG% - Immature Granu locytes (promyelocytes, myelocytes and metamyelocytes) > 1% indicates that a LEFT SHIFT is Present. International normalized rat io (INR) calculationOrdered By: Teri Garcia on 09-10-2024 INR Coag (Bld) [Relative time] 2.4 {INR} [facility] Ketones Test strip Ql (U)Ord ered By: Teri Garcia on 09-10-2024 Ketones Ql (U) Negative Negative [facility] L499.0042on 09-10-2024 Trop T High Sen 17 ng/L High <=[address] [facility] Comment on above: Performed By: #### L 499.0042 ####[facility] [address] [place], [address] L499.0043on 09-10-2024 Trop T High Sen 15 ng/L High <=[address] [facility] Comment on above: Performed By: #### L 499.0043 #### [facility] Laboratory [address] [place], [address] L501.4021on 09-10-2024 Trop T High Sen 18 ng/L High <=[address] [facility] Comment on above: Performed By: #### L 300.4310, L500.2500, L100.0100, L501.4021, L300.3900 ####[facility] [address] [place], [address] MCV (mean corpuscular volume ) determinationOrdered By: Teri Garcia on 09-10-2024 MCV (RBC) [Entitic vol] 93.9 fL 81-99 [facility] Magnetic resonance imaging r eportOrdered By: Matthias Márquez on 09-10-2024 Study report [facility] Imaging Services [address] [place], [place] [address] Brain without Contrast MR#: [id number] Acct: [id number] Name: EZRA GONZALEZ Rep #: [id number] : 1935 F 89 From: Bill Márquez MD PCP: Dr. Chucky Ochoa DO Status: ADM MARIELOS Study:Brain without Contrast Date of Exam: 09/10/24 Exam# [id number] Ordering Dr: Matthew Patel DO PROCEDURE: BRAIN [...] Atrophy and mild microvascular changes Reading Location: [facility] CC: Dr. Matthew Oro DO; Dr. Chucky Ochoa DO ~ Dry Yard Worker: Signed [facility] Mean corpuscular hemoglobin (MCH) determinationOrdered By: Teri Garcia on 09-10-2024 MCH (RBC) [Entitic mass] 30.6 pg 27.0-32.[address] [facility] Mean corpuscular hemoglobin concentration (MCHC) determinationOrdered By: Teri Garcia on 09-10-2024 MCHC (RBC) [Mass/Vol] 32.6 g/dL 32-36 [facility] Mean platelet volume determi nationOrdered By: Teri Garcia on 09-10-2024 Platelet mean volume (Bld) [Entitic vol] 10.4 fL 6.2-12.[address] [facility] Microscopic analysis of urin e for red blood cells (RBC)Ordered By: Teri Garcai on 09-10-2024 Microscopic analysis of urine for red blood cells (RBC) 0 SEEN /hpf 0-[address] [facility] Monocyte percentageOrdered B y: Teri Garcia on 09-10-2024 Monocytes/100 WBC (Bld) 9.1 % 0-10 [facility] Mucus LM Ql (Urine sed)Order ed By: Teri Garcia on 09-10-2024 Mucus Ql (Urine sed) 0 SEEN /hpf [facility] Neutrophil percentageOrdered By: Teri Garcia on 09-10-2024 Neutrophils/100 WBC (Bld) 72.3 % High 47-[address] [facility] Nitrite Test strip Ql (U)Ord ered By: Teri Garcia on 09-10-2024 Nitrite Ql (U) Negative Negative [facility] Nucleated red blood cell per centageOrdered By: Teri Garcia on 09-10-2024 Nucleated RBC/100 WBC (Bld) [Ratio] 0 % 0-[address] [facility] Partial Thromboplast Timeon 09-10-2024 aPTT Coag (Bld) [Time] 31.8 s Normal 24.1-36.2 [facility] Comment on above: Performed By: #### L 300.4310, L500.2500, L100.0100, L501.4021, L300.3900 ####[facility] [address] [place], [place], [id number] Platelet countOrdered By: Adam Garcia on 09-10-2024 Platelets (Bld) [#/Vol] 269 10*3/uL 150-[address] [facility] Potassium measurement (mass/ volume)Ordered By: Teri Garcia on 09-10-2024 Potassium (Unsp spec) [Mass/Vol] 4.4 mmol/L 3.3-5.[address] [facility] Comment on above: Hemolysis present, R esults could be affected. Protein Test strip Ql (U)Ord ered By: Teri Gacria on 09-10-2024 Protein Ql (U) 30 mg/dl High Negative [facility] Prothrombin Time w/INRon INR Coag (PPP) [Relative time] 2.4 {INR} Normal [facility] Comment on above: Performed By: #### L 300.4310, L500.2500, L100.0100, L501.4021, L300.3900 ####[facility] [address] [place], [address] PT Coag (PPP) [Time] 26.4 s High 11.7-14.9 [facility] Comment on above: Performed By: #### L 300.4310, L500.2500, L100.0100, L501.4021, L300.3900 ####[facility] [address] [place], [address] Prothrombin timeOrdered By: Teri Garcia on 09-10-2024 PT Coag (PPP) [Time] 26.4 s High 11.7-14.9 [facility] RBC Auto (Bld) [#/Vol]Ordere d By: Teri Garcia on 09-10-2024 RBC (Bld) [#/Vol] 4.44 10*6/uL 4.2-5.4 [facility] STROKE Brain/Head without Co nton 09-10-2024 STROKE Brain/Head without Cont [facility] Imaging Services [address] [place], [place] [address] STROKE Brain/Head without Cont MR#: [id number] Acct: [id number] Name: EZRA GONZALEZ Rep #: [id number] : 1935 F 89 From: Mio nayak MD PCP: Dr. Chucky Ochoa DO Status: [facility] Study: STROKE Brain/Head without Cont Date of Exam: 0 09/10/24 Exam# [id number] Ordering Dr: Teri Garcia DO PROCEDURE: STROKE [...] 2:05 pm with readback verification. Reading Location: [id number] CC: Dr. Teri Garcia DO; Dr. Chucky Ochoa DO Dry Yard Worker: Signed Normal [facility] STROKE CTA Head AND Neck W/C onon 09-10-2024 STROKE CTA Head AND Neck W/Con [facility] Imaging Services [address] [place] [address] STROKE CTA Head AND Neck W/Con MR#: [id number] Acct: [id number] Name: EZRA GONZALEZ Rep #: [id number] : 1935 F 89 From: Mio nayak MD PCP: Dr. Chucky Ochoa DO Status: [facility] ER Study: STROKE CTA Head AND Neck W/Con Date of Exam: 0 09/10/24 Exam# [id number] Ordering Dr: Teri Garcia DO PROCEDURE: STROKE [...] RIGHT Vertebral: Unremarkable. LEFT Vertebral: Unremarkable. Anatomy: [place] anatomy is normal. Aneurysm or [...] 3:01 pm with readback verification. Reading Location: [id number] CC: Dr. Teri Garcia, DO; Dr. Chucky Ochoa, DO Dry Yard Worker: Signed Normal [facility] Serum creatinine measurement (mass/volume)Ordered By: Teri Garcia on 09-10-2024 Creatinine [Mass/Vol] 1.05 mg/dL 0.70-1.20 [facility] Serum glucose measurement (m ass/volume)Ordered By: Teri Garcia on 09-10-2024 Glucose [Mass/Vol] 131 mg/dL High 70-99 [facility] Serum or plasma calcium viktoria urement (mass/volume)Ordered By: Teri Garcia on 09-10-2024 Calcium [Mass/Vol] 8.7 mg/dL 7.6-11.0 [facility] Serum or plasma urea nitroge n measurement (mass/volume)Ordered By: Teri Garcia on 09-10-2024 Urea nitrogen [Mass/Vol] 37 mg/dL High 4-[address] [facility] Sodium levelOrdered By: Ollie Garcia on 09-10-2024 Sodium [Moles/Vol] 137 mmol/L 133-145 [facility] Squamous epithelial cells de tection in urine sediment by light microscopyOrdered By: Teri Garcia on 09-10-2024 Epithelial cells.squamous LM Ql (Urine sed) 0-5 SEEN /hpf 5-[address] [facility] Troponin T.cardiac [Mass/vol ume] in Serum or Plasma by High sensitivity methodOrdered By: Teri Garcia on 09-10-2024 Troponin T.cardiac High sensitivity method [Mass/Vol] 15 ng/L High <[address] [facility] Troponin T.cardiac High sensitivity method [Mass/Vol] 17 ng/L High <[address] [facility] Troponin T.cardiac High sensitivity method [Mass/Vol] 18 ng/L High <[address] [facility] Urinalysis, Completeon 09-10 BACTERIA RARE Normal None Seen [facility] Comment on above: Order Comment: RANDY CTOR TO SPECIFY Performed By: #### L 400.0001 ####[facility] [address] [place], [place], [id number] EPI,SQUAMOUS 0-5 SEEN Normal 5-[address] [facility] Comment on above: Order Comment: RANDY CTOR TO SPECIFY Performed By: #### L 400.0001 ####[facility] [address] [place], [address] WBC 10-25 SEEN Normal 0-[address] [facility] Comment on above: Order Comment: RANDY CTOR TO SPECIFY Performed By: #### L 400.0001 ####[facility] [address] [place], [address] Mucus Ql (Urine sed) 0 SEEN Normal [facility] Comment on above: Order Comment: RANDY CTOR TO SPECIFY Performed By: #### L 400.0001 ####[facility] [address] [place], [address] RBC 0 SEEN Normal 0-[address] [facility] Comment on above: Order Comment: RANDY CTOR TO SPECIFY Performed By: #### L 400.0001 ####[facility] [address] [place], [address] Urine clarityOrdered By: Lashaun Garcia on 09-10-2024 Clarity (U) Clear Clear [facility] Urine color determinationOrd ered By: Teri Garcia on 09-10-2024 Color (U) Straw Yellow [facility] Urine cultureOrdered By: Lashaun Garcia on 09-10-2024 Bacteria identified Cx Nom (U) Klebsiella pneumoniae sp pneum Abnormal [facility] Urine glucose detectionOrder ed By: Teri Garcia on 09-10-2024 Glucose Ql (U) Normal mg/dl Normal [facility] Urine leukocyte esterase det ection by dipstickOrdered By: Teri Garcia on 09-10-2024 Leukocyte esterase Test strip Ql (U) 500 /ul High Negative [facility] Urine pHOrdered By: Teri romero on 09-10-2024 pH (U) 5.0 [pH] 5.0 - 8.[address] [facility] Urine sediment bacteria coun t by microscopy (number/high power field)Ordered By: Teri Garcia on 09-10-2024 Bacteria LM.HPF (Urine sed) [#/Area] RARE /hpf None Seen [facility] Urine specific gravity measu rementOrdered By: Teri Garcia on 09-10-2024 Specific gravity (U) [Rel density] 1.010 1.002-1.[address] [facility] Urine urobilinogen measureme ntOrdered By: Teri Garcia on 09-10-2024 Urobilinogen Ql (U) Normal mg/dl Normal [facility] White blood cell (WBC) count Ordered By: Teri Garcia on 09-10-2024 WBC (Bld) [#/Vol] 11.5 10*3/uL High 4.4-11.0 [facility] White blood cell countOrdere d By: Teri Garcia on 09-10-2024 White blood cell count 10-25 SEEN /hpf 0-[address] [facility] Absolute lymphocyte countOrd ered By: Anooppierce Crewso on 09-08-2024 Lymphocytes Auto (Unsp spec) [#/Vol] 2.21 10*3/uL 0.83-4.[address] [facility] Absolute neutrophil countOrd ered By: [facility] Neutrophils (Bld) [#/Vol] 10.3 10*3/uL High 2.0-7.[address] [facility] Anion gap in Serum or Plasma Ordered By: Anooppierce Blackmon on 09-08-2024 Anion gap [Moles/Vol] 11 mmol/L 5-15 [facility] Automated lymphocyte count a s percentage of total leukocytesOrdered By: Anooppierce Blackmon on 09-08-2024 Lymphocytes/100 WBC Auto (Unsp spec) 16.2 % Low 19-[address] [facility] BUN/creatinine ratioOrdered By: Anoop Blackmon on 09-08-2024 Urea nitrogen/Creatinine [Mass ratio] 35.2 mg/mg High 10-[address] [facility] Basic Metabolic Profile (BMP )on 09-08-2024 BUN/CRE 35.2 RATIO High 10-[address] [facility] Comment on above: Performed By: #### L 100.0100, L500.2500, L300.3900, L3300.4400 ####[facility] [address] [place], [address] Calcium [Mass/Vol] 8.9 mg/dL Normal 7.6-11.0 [facility] Comment on above: Performed By: #### L 100.0100, L500.2500, L300.3900, L3300.4400 ####[facility] [address] [place], [address] Chloride [Moles/Vol] 105 mmol/L Normal 98-108 [facility] Comment on above: Performed By: #### L 100.0100, L500.2500, L300.3900, L3300.4400 ####[facility] [address] [place], [address] CO2 [Moles/Vol] 22.4 mmol/L Normal 21.0-32.[address] [facility] Comment on above: Performed By: #### L 100.0100, L500.2500, L300.3900, L3300.4400 ####[facility] [address] [place], [address] Creatinine [Mass/Vol] 1.00 mg/dL Normal 0.70-1.20 [facility] Comment on above: Performed By: #### L 100.0100, L500.2500, L300.3900, L3300.4400 ####[facility] [address] [place], [address] ECRCL 39.57 ml/min Low 50-[address] [facility] Comment on above: Performed By: #### L 100.0100, L500.2500, L300.3900, L3300.4400 ####[facility] [address] [place], [address] GAP 11 Normal 5-[address] [facility] Comment on above: Performed By: #### L 100.0100, L500.2500, L300.3900, L3300.4400 ####[facility] [address] [place], [address] GFR/1.73 sq M.predicted among non-blacks MDRD (S/P/Bld) [Vol rate/Area] 54 mL/min/{1.73_m2} Low >60 [facility] Comment on above: Result Comment: mL/m in/1.73m2 CKD-EPI Creatinine Equation (2020) Performed By: #### L 100.0100, L500.2500, L300.3900, L3300.4400 ####[facility] [address] [place], [address] Glucose [Mass/Vol] 149 mg/dL High 70-99 [facility] Comment on above: Performed By: #### L 100.0100, L500.2500, L300.3900, L3300.4400 ####[facility] [address] [place], [address] Potassium [Moles/Vol] 4.7 mmol/L Normal 3.3-5.1 [facility] Comment on above: Performed By: #### L 100.0100, L500.2500, L300.3900, L3300.4400 ####[facility] [address] [place], [address] Sodium [Moles/Vol] 138 mmol/L Normal 133-145 [facility] Comment on above: Performed By: #### L 100.0100, L500.2500, L300.3900, L3300.4400 ####[facility] [address] [place], [address] Urea nitrogen [Mass/Vol] 35 mg/dL High 4-[address] [facility] Comment on above: Performed By: #### L 100.0100, L500.2500, L300.3900, L3300.4400 ####[facility] [address] [place], [address] Basophil percentageOrdered B y: Anoop Blackmon on 09-08-2024 Basophils/100 WBC (Bld) 0.2 % 0-1 [facility] CBC W/Diff, Automatedon 08-29 Absolute Lymph 2.21 X10 3/uL Normal 0.83-4.[address] [facility] Comment on above: Performed By: #### L 100.0100, L500.2500, L300.3900, L3300.4400 ####[facility] [address] [place], [address] Absolute Neut 10.3 X10 3/uL High 2.0-7.[address] [facility] Comment on above: Performed By: #### L 100.0100, L500.2500, L300.3900, L3300.4400 ####[facility] [address] [place], [address] Basophils/100 WBC (Bld) 0.2 % Normal 0-1 [facility] Comment on above: Performed By: #### L 100.0100, L500.2500, L300.3900, L3300.4400 ####[facility] [address] [place], [address] Eosinophils/100 WBC (Bld) 0.7 % Normal 0-[address] [facility] Comment on above: Performed By: #### L 100.0100, L500.2500, L300.3900, L3300.4400 ####[facility] [address] [place], [address] Erythrocyte distribution width (RBC) [Ratio] 13.2 % Normal 11.6-14.[address] [facility] Comment on above: Performed By: #### L 100.0100, L500.2500, L300.3900, L3300.4400 ####[facility] [address] [place], [address] Hematocrit (Bld) [Volume fraction] 41.4 % Normal 37-[address] [facility] Comment on above: Performed By: #### L 100.0100, L500.2500, L300.3900, L3300.4400 ####[facility] [address] [place], [address] Hemoglobin (Bld) [Mass/Vol] 13.8 g/dL Normal 12.0-15.[address] [facility] Comment on above: Performed By: #### L 100.0100, L500.2500, L300.3900, L3300.4400 ####[facility] [address] [place], [address] IG% 0.400 Normal 0.0-0.[address] [facility] Comment on above: Result Comment: IG% - Immature Granulocytes (promyelocytes, myelocytes and metamyelocytes) > 1% indicates that a LEFT SHIFT is Present. Performed By: #### L 100.0100, L500.2500, L300.3900, L3300.4400 ####[facility] [address] [place], [address] Lymphocytes/100 WBC (Bld) 16.2 % Low 19-[address] [facility] Comment on above: Performed By: #### L 100.0100, L500.2500, L300.3900, L3300.4400 ####[facility] [address] [place], [address] MCH (RBC) [Entitic mass] 31.4 pg Normal 27.0-32.[address] [facility] Comment on above: Performed By: #### L 100.0100, L500.2500, L300.3900, L3300.4400 ####[facility] [address] [place], [address] MCHC (RBC) [Mass/Vol] 33.3 g/dL Normal 32-36 [facility] Comment on above: Performed By: #### L 100.0100, L500.2500, L300.3900, L3300.4400 ####[facility] [address] [place], [address] MCV (RBC) [Entitic vol] 94.1 fL Normal 81-99 [facility] Comment on above: Performed By: #### L 100.0100, L500.2500, L300.3900, L3300.4400 ####[facility] [address] [place], [address] Monocytes/100 WBC (Bld) 6.6 % Normal 0-10 [facility] Comment on above: Performed By: #### L 100.0100, L500.2500, L300.3900, L3300.4400 ####[facility] [address] [place], [address] Neutrophils/100 WBC (Bld) 75.9 % High 47-[address] [facility] Comment on above: Performed By: #### L 100.0100, L500.2500, L300.3900, L3300.4400 ####[facility] [address] [place], [address] Nucleated RBC (Bld) [#/Vol] 0 10*3/uL Normal 0-[address] [facility] Comment on above: Performed By: #### L 100.0100, L500.2500, L300.3900, L3300.4400 ####[facility] [address] [place], [address] Platelet mean volume (Bld) [Entitic vol] 10.8 fL Normal 6.2-12.[address] [facility] Comment on above: Performed By: #### L 100.0100, L500.2500, L300.3900, L3300.4400 ####[facility] [address] [place], [address] Platelets (Bld) [#/Vol] 326 10*3/uL Normal 150-[address] [facility] Comment on above: Performed By: #### L 100.0100, L500.2500, L300.3900, L3300.4400 ####[facility] [address] [place], [address] RBC (Bld) [#/Vol] 4.40 10*6/uL Normal 4.2-5.4 [facility] Comment on above: Performed By: #### L 100.0100, L500.2500, L300.3900, L3300.4400 ####[facility] [address] [place], [address] RDW SD 45.2 fl High 35.1-43.[address] [facility] Comment on above: Performed By: #### L 100.0100, L500.2500, L300.3900, L3300.4400 ####[facility] [address] [place], [address] WBC (Bld) [#/Vol] 13.6 10*3/uL High 4.4-11.0 [facility] Comment on above: Performed By: #### L 100.0100, L500.2500, L300.3900, L3300.4400 ####[facility] [address] [place], [address] Carbon dioxide, total [Moles /volume] in Central venous bloodOrdered By: Anoop Blackmon on 09-08-2024 CO2 [Moles/Vol] 22.4 mmol/L 21.0-32.[address] 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 Normal [facility] Eosinophil percentageOrdered By: Anoop Blackmon on 09-08-2024 Eosinophils/100 WBC (Bld) 0.7 % 0-[address] [facility] Erythrocyte distribution wid th ratioOrdered By: Anoop Blackmon on 09-08-2024 Erythrocyte distribution width (RBC) [Ratio] 13.2 % 11.6-14.[address] [facility] Erythrocyte distribution wid th standard deviationOrdered By: Anooppierce Blackmon on 09-08-2024 Erythrocyte distribution width (RBC) [Ratio] 45.2 fl High 35.1-43.[address] [facility] Glomerular filtration rate ( GFR) estimation/1.73 sq m using serum, plasma, or whole bOrdered By: Anoop Blackmon on 09-08-2024 GFR/1.73 sq M.predicted among non-blacks MDRD (S/P/Bld) [Vol rate/Area] 54 mL/min/{1.73_m2} Low >60 [facility] Comment on above: mL/min/1.73m2 CKD-EP I Creatinine Equation (2020) Hematocrit Auto (Bld) [Volum e fraction]Ordered By: Anooppierce Blackmon on 09-08-2024 Hematocrit (Bld) [Volume fraction] 41.4 % 37-[address] [facility] Hemoglobin measurementOrdere d By: Anooppierce Blackmon on 09-08-2024 Hemoglobin (Bld) [Mass/Vol] 13.8 g/dL 12.0-15.[address] [facility] Immature granulocytes/100 WB C Auto (Bld)Ordered By: Anooppierce Blackmon 09-08-2024 Immature granulocytes/100 WBC (Bld) 0.400 % 0.0-0.[address] [facility] Comment on above: IG% - Immature Granu locytes (promyelocytes, myelocytes and metamyelocytes) > 1% indicates that a LEFT SHIFT is Present. International normalized rat io (INR) calculationOrdered By: Anooppierce Blackmon on 09-08-2024 INR Coag (Bld) [Relative time] 2.9 {INR} [facility] MCV (mean corpuscular volume ) determinationOrdered By: Anooppierce Blackmon on 09-08-2024 MCV (RBC) [Entitic vol] 94.1 fL 81-99 [facility] Mean corpuscular hemoglobin (MCH) determinationOrdered By: Anooppierce Blackmon 09-08-2024 MCH (RBC) [Entitic mass] 31.4 pg 27.0-32.0 [facility] Mean corpuscular hemoglobin concentration (MCHC) determinationOrdered By: Anooppierce Blackmon on 09-08-2024 MCHC (RBC) [Mass/Vol] 33.3 g/dL 32-36 [facility] Mean platelet volume determi nationOrdered By: Anooppierce Blackmon on 09-08-2024 Platelet mean volume (Bld) [Entitic vol] 10.8 fL 6.2-12.[address] [facility] Monocyte percentageOrdered B y: [facility] on 09-08-[facility] Monocytes/100 WBC (Bld) 6.6 % 0-10 [facility] Neutrophil percentageOrdered By: [facility] on 09-08-2024 Neutrophils/100 WBC (Bld) 75.9 % High 47-[address] [facility] Nucleated red blood cell per centageOrdered By: [facility] on 09-08-2024 Nucleated RBC/100 WBC (Bld) [Ratio] 0 % 0-[address] [facility] Platelet countOrdered By: [facility] on 09-08-2024 Platelets (Bld) [#/Vol] 326 10*3/uL 150-[address] [facility] Potassium measurement (mass/ volume)Ordered By: [facility] on 09-08-2024 Potassium (Unsp spec) [Mass/Vol] 4.7 mmol/L 3.3-5.[address] [facility] Prothrombin Time w/INRon INR Coag (PPP) [Relative time] 2.9 {INR} Normal [facility] Comment on above: Performed By: #### L 100.0100, L500.2500, L300.3900, L3300.4400 ####[facility] [address] [place], [place], [id number] PT Coag (PPP) [Time] 30.7 s High 11.7-14.9 [facility] Comment on above: Performed By: #### L 100.0100, L500.2500, L300.3900, L3300.4400 ####[facility] [address] [place], [place], [id number] Prothrombin timeOrdered By: Anoop Blackmon on 09-08-2024 PT Coag (PPP) [Time] 30.7 s High 11.7-14.9 [facility] RBC Auto (Bld) [#/Vol]Ordere d By: Anoop Blackmon on 09-08-2024 RBC (Bld) [#/Vol] 4.40 10*6/uL 4.2-5.4 [facility] Serum creatinine measurement (mass/volume)Ordered By: Anoop Blackmon on 09-08-2024 Creatinine [Mass/Vol] 1.00 mg/dL 0.70-1.20 [facility] Serum glucose measurement (m ass/volume)Ordered By: Anoop Blackmon on 09-08-2024 Glucose [Mass/Vol] 149 mg/dL High 70-99 [facility] Serum or plasma calcium viktoria urement (mass/volume)Ordered By: Anoop Blackmon on 09-08-2024 Calcium [Mass/Vol] 8.9 mg/dL 7.6-11.0 [facility] Serum or plasma lamotrigine measurement (mass/volume)Ordered By: Anoop Blackmon on 09-08-2024 lamoTRIgine [Mass/Vol] 1.2 ug/mL Low 2.0-20.0 [facility] Comment on above: Detection Limit = 1. 0Performed at: [facility] [id number] Director: Brandon Wells MD, Phone: [phone] Serum or plasma urea nitroge n measurement (mass/volume)Ordered By: Anoop Blackmon on 09-08-2024 Urea nitrogen [Mass/Vol] 35 mg/dL High 4-[address] [facility] Sodium levelOrdered By: Anoop Blackmon on 09-08-2024 Sodium [Moles/Vol] 138 mmol/L 133-145 [facility] White blood cell (WBC) count Ordered By: Anoop Blackmon on 09-08-2024 WBC (Bld) [#/Vol] 13.6 10*3/uL High 4.4-11.0 [facility] International normalized rat io (INR) calculationOrdered By: Cesar Cole on 08-18-2024 INR Coag (Bld) [Relative time] 2.6 {INR} [facility] Prothrombin timeOrdered By: Cesar Cole on 08-18-2024 PT Coag (PPP) [Time] 28.1 s High 11.7-14.9 [facility] International normalized rat io (INR) calculationOrdered By: Cesar Douglas on 07-19-2024 INR Coag (Bld) [Relative time] 2.2 {INR} [facility] Prothrombin timeOrdered By: Cesar Douglas on 07-19-2024 PT Coag (PPP) [Time] 25.3 s High 11.7-14.9 [facility] Cardiology Visit Reporton Cardiology Visit Report [facility] [facility] [facility] [address] [place] [address] OFFICE VISIT Date of Service: 07/01/24 MR#: [id number] Acct: [id number] Name: EZRA GONZALEZ Rep #: [id number] : 1935 Provider: Dr. Cesar Cole MD [...] atrial fibrillation. She is a reside at [facility]. 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 Normal [facility] International normalized rat io (INR) calculationOrdered By: Chucky Ochoa on 06-16-2024 INR Coag (Bld) [Relative time] 2.4 {INR} [facility] Prothrombin timeOrdered By: Chucky Ochoa on 06-16-2024 PT Coag (PPP) [Time] 26.6 s High 11.7-14.9 [facility] Absolute lymphocyte countOrd ered By: Chucky Ochoa on 06-09-2024 Lymphocytes Auto (Unsp spec) [#/Vol] 2.06 10*3/uL 0.83-4.[address] [facility] Absolute neutrophil countOrd ered By: Chucky Ochoa on 06-09-2024 Neutrophils (Bld) [#/Vol] 5.6 10*3/uL 2.0-7.[address] [facility] Anion gap in Serum or Plasma Ordered By: Chucky Ochoa on 06-09-2024 Anion gap [Moles/Vol] 13 mmol/L 5-15 [facility] Automated lymphocyte count a s percentage of total leukocytesOrdered By: Chucky Ochoa on 06-09-2024 Lymphocytes/100 WBC Auto (Unsp spec) 23.0 % 19-[address] [facility] BUN/creatinine ratioOrdered By: Chucky Ochoa on 06-09-2024 Urea nitrogen/Creatinine [Mass ratio] 21.5 mg/mg High 10-[address] [facility] Basophil percentageOrdered B y: Chucky Ochoa on 06-09-2024 Basophils/100 WBC (Bld) 0.6 % 0-[address] [facility] Carbon dioxide, total [Moles /volume] in Central venous bloodOrdered By: Chucky Ochoa on 06-09-2024 CO2 [Moles/Vol] 22.4 mmol/L 21.0-32.[address] [facility] Chloride assayOrdered By: Costa Ochoa on 06-09-2024 Chloride [Moles/Vol] 108 mmol/L 98-108 [facility] Eosinophil percentageOrdered By: Chucky Ochoa on 06-09-2024 Eosinophils/100 WBC (Bld) 4.8 % 0-[address] [facility] Erythrocyte distribution wid th ratioOrdered By: Chucky Ochoa on 06-09-2024 Erythrocyte distribution width (RBC) [Ratio] 14.6 % 11.6-14.[address] [facility] Erythrocyte distribution wid th standard deviationOrdered By: Chucky Ochoa on 06-09-2024 Erythrocyte distribution width (RBC) [Entitic vol] 49.2 fL High 35.1-43.9 [facility] Erythrocyte distribution width (RBC) [Ratio] 49.2 fl High 35.1-43.[address] [facility] GFR/1.73 sq M.predicted sonia g non-blacks MDRD (S/P/Bld) [Vol rate/Area]Ordered By: Chucky Ochoa on 06-09-2024 Estimated GFR (MDRD) Non-Af Amer 59 Low >[address] [facility] Comment on above: mL/min/1.73m2 CKD-EP I Creatinine Equation (2020) Glomerular filtration rate ( GFR) estimation/1.73 sq m using serum, plasma, or whole bOrdered By: Chucky Ochoa on 06-09-2024 GFR/1.73 sq M.predicted among non-blacks MDRD (S/P/Bld) [Vol rate/Area] 59 mL/min/{1.73_m2} Low >60 [facility] Comment on above: mL/min/1.73m2 CKD-EP I Creatinine Equation (2020) Hematocrit Auto (Bld) [Volum e fraction]Ordered By: Chucky Ochoa on 06-09-2024 Hematocrit (Bld) [Volume fraction] 38.3 % 37-[address] [facility] Hemoglobin A1c percentageOrd ered By: Chucky Ochoa on 06-09-2024 HbA1c (Bld) [Mass fraction] 6.5 % >5.[address] [facility] Hemoglobin measurementOrdere d By: Chucky Ochoa on 06-09-2024 Hemoglobin (Bld) [Mass/Vol] 12.4 g/dL 12.0-15.[address] [facility] Immature granulocytes/100 WB C Auto (Bld)Ordered By: Chucky Ochoa on 06-09-2024 Immature granulocytes/100 WBC (Bld) 0.200 % 0.0-0.[address] [facility] Comment on above: IG% - Immature Granu locytes (promyelocytes, myelocytes and metamyelocytes) > 1% indicates that a LEFT SHIFT is Present. Lymphocytes Auto (Unsp spec) [#/Vol]Ordered By: Chucky Ochoa on 06-09-2024 Lymphocytes (Bld) [#/Vol] 2.06 10*3/uL 0.83-4.[address] [facility] Lymphocytes/100 WBC Auto (Un sp spec)Ordered By: Chucky Ochoa on 06-09-2024 Lymphocytes/100 WBC (Bld) 23.0 % 19-[address] [facility] MCV (mean corpuscular volume ) determinationOrdered By: Chucky Ochoa on 06-09-2024 MCV (RBC) [Entitic vol] 91.8 fL 81-99 [facility] Mean corpuscular hemoglobin (MCH) determinationOrdered By: Chucky Ochoa on 06-09-2024 MCH (RBC) [Entitic mass] 29.7 pg 27.0-32.[address] [facility] Mean corpuscular hemoglobin concentration (MCHC) determinationOrdered By: Chucky Ochoa on 06-09-2024 MCHC (RBC) [Mass/Vol] 32.4 g/dL 32-36 [facility] Mean platelet volume determi nationOrdered By: Chucky Ochoa on 06-09-2024 Platelet mean volume (Bld) [Entitic vol] 10.2 fL 6.2-12.[address] [facility] Monocyte percentageOrdered B y: Chucky Ochoa on 06-09-2024 Monocytes/100 WBC (Bld) 8.6 % 0-10 [facility] Neutrophil percentageOrdered By: Chucky Ochoa on 06-09-2024 Neutrophils/100 WBC (Bld) 62.8 % 47-[address] [facility] Nucleated red blood cell per centageOrdered By: Chucky Ochoa on 06-09-2024 Nucleated RBC/100 WBC (Bld) [Ratio] 0 % 0-[address] [facility] Platelet countOrdered By: Costa Ochoa on 06-09-2024 Platelets (Bld) [#/Vol] 323 10*3/uL 150-[address] [facility] Potassium (Unsp spec) [Mass/ Vol]Ordered By: Chucky Ochoa on 06-09-2024 Potassium [Moles/Vol] 4.7 mmol/L 3.3-5.1 [facility] Potassium measurement (mass/ volume)Ordered By: Chucky Ochoa on 06-09-2024 Potassium (Unsp spec) [Mass/Vol] 4.7 mmol/L 3.3-5.[address] [facility] RBC Auto (Bld) [#/Vol]Ordere d By: Chucky Ochoa on 06-09-2024 RBC (Bld) [#/Vol] 4.17 10*6/uL Low 4.2-5.4 [facility] Serum creatinine measurement (mass/volume)Ordered By: Chucky Ochoa on 06-09-2024 Creatinine [Mass/Vol] 0.94 mg/dL 0.70-1.20 [facility] Serum glucose measurement (m ass/volume)Ordered By: Chucky Ochoa on 06-09-2024 Glucose [Mass/Vol] 137 mg/dL High 70-99 [facility] Serum or plasma calcium viktoria urement (mass/volume)Ordered By: Chucky Ochoa on 06-09-2024 Calcium [Mass/Vol] 8.9 mg/dL 7.6-11.0 [facility] Serum or plasma urea nitroge n measurement (mass/volume)Ordered By: Chucky Ochoa on 06-09-2024 Urea nitrogen [Mass/Vol] 20 mg/dL High 4-[address] [facility] Sodium levelOrdered By: Dru Ochoa on 06-09-2024 Sodium [Moles/Vol] 143 mmol/L 133-145 [facility] White blood cell (WBC) count Ordered By: Chucky Ochoa on 06-09-2024 WBC (Bld) [#/Vol] 9.0 10*3/uL 4.4-11.0 [facility] INR Coag (BldC) [Relative ti me]Ordered By: Cesar Cole on 05-19-2024 INR Coag (Bld) [Relative time] 2.9 {INR} [facility] Comment on above: Critical Value > 4.0 International normalized rat io (INR) measurement by fingerstickOrdered By: Cesar Cole on 05-19-2024 INR Coag (BldC) [Relative time] 2.[address] [facility] Comment on above: Critical Value > 4.0 PT Coag (Bld) [Time]Ordered By: Cesar Cole on 05-19-2024 Bedside Prothrombin Time 30.4 SEC High 11.7-14.[address] [facility] Whole blood prothrombin time Ordered By: Cesar Cole on 05-19-2024 PT Coag (Bld) [Time] 30.4 s High 11.7-14.9 [facility] Serum or plasma lamotrigine measurement (mass/volume)Ordered By: Anant Juarez on 05-12-2024 lamoTRIgine [Mass/Vol] 1.8 ug/mL Low 2.0-20.0 [facility] Comment on above: Detection Limit = 1. 0Performed at: [facility] [address] [id number] Director: Brandon Wells MD, Phone: [phone] Venous blood ammonia measure mentOrdered By: Anant Juarez on 05-12-2024 Ammonia (P) [Moles/Vol] 17.0 umol/L [facility] lamoTRIgine [Mass/Vol]Ordere d By: Anantchavez Juarez on 05-12-2024 Lamotrigine (Lamictal) Level 1.8 ug/mL Low 2.0-20.[address] [facility] Comment on above: Detection Limit = 1. 0Performed at: - [address] [id number] Director: Brandon Wells MD, Phone: [phone] Neurology Visit Reporton Neurology Visit Report [facility] [address] [facility], [address] [place] [address] OFFICE VISIT Date of Service: 05/10/24 MR#: [id number] Acct: [id number] Name: EZRA GONZALEZ Rep #: [id number] : 1935 Provider: Dr. Anant baez MD Age/Sex: 88/F [place] [facility] [place] 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 She has become lost while driving [...] nature. Th (more content not included)... Normal [facility] INR Coag (BldC) [Relative ti me]Ordered By: Cesar Cole on 05-05-2024 INR Coag (Bld) [Relative time] 2.5 {INR} [facility] Comment on above: Critical Value > 4.0 PT Coag (Bld) [Time]Ordered By: Cesar Cole on 05-05-2024 Bedside Prothrombin Time 26.9 SEC High 11.7-14.[address] [facility] International normalized rat io (INR) calculationOrdered By: Chucky Ochoa on 04-28-2024 INR Coag (Bld) [Relative time] 3.4 {INR} [facility] Prothrombin timeOrdered By: Chucky Ochoa on 04-28-2024 PT Coag (PPP) [Time] 35.4 s High 11.7-14.9 [facility] International normalized rat io (INR) calculationOrdered By: Chucky Ochoa on 04-14-2024 INR Coag (Bld) [Relative time] 3.0 {INR} [facility] Prothrombin timeOrdered By: Chucky Ochoa on 04-14-2024 PT Coag (PPP) [Time] 31.4 s High 11.7-14.9 [facility] Blood urea nitrogen (BUN)/cr eatinine ratioOrdered By: Chucky Ochoa on 04-09-2024 Urea nitrogen/Creatinine [Mass ratio] 13.5 mg/mg 10-[address] [facility] Carbon dioxide measurementOr dered By: Chucky Ochoa on 04-09-2024 CO2 [Moles/Vol] 28.0 mmol/L 21.0-32.[address] [facility] Chloride measurementOrdered By: Chucky Ochoa on 04-09-2024 Chloride [Moles/Vol] 106 mmol/L 98-107 [facility] Estimated glomerular filtrat ion rate (GFR) AmericanOrdered By: Chucky Ochoa on 04-09-2024 Estimated GFR (MDRD) Amer 70 mL/min >[address] [facility] Comment on above: GFR Calc Glomerular filtration rate ( GFR) estimationOrdered By: Chucky Ochoa on 04-09-2024 Estimated GFR (MDRD) Non-Af Amer 58 mL/min Low >[address] [facility] Comment on above: Non- GFR Calc Glucose measurementOrdered B y: Chucky Ochoa on 04-09-2024 Glucose [Mass/Vol] 116 mg/dL High 74-106 [facility] Comment on above: Fasting Glucose resu lt from 100 to 125 mg/dL suggests IMPAIRED HOMEOSTASIS per A.D.A. criteria. Potassium measurementOrdered By: Chucky Ochoa on 04-09-2024 Potassium [Moles/Vol] 4.3 mmol/L 3.5-5.1 [facility] Serum anion gap measurementO rdered By: Chucky Ochao on 04-09-2024 Anion gap [Moles/Vol] 3 mmol/L Low 5-15 [facility] Serum or plasma calcium viktoria urement (mass/volume)Ordered By: Chucky Ochoa on 04-09-2024 Calcium [Mass/Vol] 8.8 mg/dL 8.5-10.1 [facility] Serum or plasma creatinine m easurement (mass/volume)Ordered By: Chucky Ochoa on 04-09-2024 Creatinine [Mass/Vol] 0.96 mg/dL 0.55-1.02 [facility] Comment on above: The validity of the calculated GFR & GFRAA in patients over 70 years has not been determined. Clinical correlation is essential. Serum or plasma urea nitroge n measurement (mass/volume)Ordered By: Chucky Ochoa on 04-09-2024 Urea nitrogen [Mass/Vol] 13 mg/dL 7-[address] [facility] Sodium levelOrdered By: Dru Ochoa on 04-09-2024 Sodium [Moles/Vol] 137 mmol/L 136-145 [facility] International normalized rat io (INR) calculationOrdered By: Chucky Ochoa on 04-06-2024 INR Coag (Bld) [Relative time] 2.6 {INR} [facility] Prothrombin timeOrdered By: Chucky Ochoa on 04-06-2024 PT Coag (PPP) [Time] 28.8 s High 11.7-14.9 [facility] INR Coag (BldC) [Relative ti me]Ordered By: Chucky Ochoa on 04-05-2024 INR Coag (Bld) [Relative time] 3.5 {INR} [facility] Comment on above: Critical Value > 4.0 PT Coag (Bld) [Time]Ordered By: Chucky Ochoa on 04-05-2024 Bedside Prothrombin Time 35.4 SEC High 11.7-14.[address] [facility] International normalized rat io (INR) calculationOrdered By: Chucky Ochoa on 03-29-2024 INR Coag (Bld) [Relative time] 1.5 {INR} [facility] Prothrombin timeOrdered By: Chucky Ochoa on 03-29-2024 PT Coag (PPP) [Time] 17.9 s High 11.7-14.9 [facility] INR Coag (BldC) [Relative ti me]Ordered By: Chucky Ochoa on 03-26-2024 INR Coag (Bld) [Relative time] 3.4 {INR} [facility] Comment on above: Critical Value > 4.0 PT Coag (Bld) [Time]Ordered By: Chucky Ochoa on 03-26-2024 Bedside Prothrombin Time 34.4 SEC High 11.7-14.[address] [facility] INR Coag (BldC) [Relative ti me]Ordered By: Chucky Ochoa on 03-25-2024 INR Coag (Bld) [Relative time] 3.8 {INR} [facility] Comment on above: Critical Value > 4.0 PT Coag (Bld) [Time]Ordered By: Chucky Ochoa on 03-25-2024 Bedside Prothrombin Time 37.8 SEC High 11.7-14.[address] [facility] International normalized rat io (INR) calculationOrdered By: Chucky Ochoa on 03-19-2024 INR Coag (Bld) [Relative time] 3.0 {INR} [facility] Prothrombin timeOrdered By: Chucky Ochoa on 03-19-2024 PT Coag (PPP) [Time] 30.7 s High 11.7-14.9 [facility] INR Coag (BldC) [Relative ti me]Ordered By: Chucky Ochoa on 03-17-2024 INR Coag (Bld) [Relative time] 3.3 {INR} [facility] Comment on above: Critical Value > 4.0 PT Coag (Bld) [Time]Ordered By: Chucky Ochoa on 03-17-2024 Bedside Prothrombin Time 34.2 SEC High 11.7-14.[address] [facility] INR Coag (BldC) [Relative ti me]Ordered By: Chucky Ochoa on 03-10-2024 INR Coag (Bld) [Relative time] 2.4 {INR} [facility] Comment on above: Critical Value > 4.0 PT Coag (Bld) [Time]Ordered By: Chucky Ochoa on 03-10-2024 Bedside Prothrombin Time 25.4 SEC High 11.7-14.[address] [facility] International normalized rat io (INR) calculationOrdered By: Chucky Ochoa on 03-08-2024 INR Coag (Bld) [Relative time] 1.8 {INR} [facility] Prothrombin timeOrdered By: Chucky Ochoa on 03-08-2024 PT Coag (PPP) [Time] 21.1 s High 11.7-14.9 [facility] INR Coag (BldC) [Relative ti me]Ordered By: Chucky Ochoa on 03-04-2024 INR Coag (Bld) [Relative time] 1.8 {INR} [facility] Comment on above: Critical Value > 4.0 PT Coag (Bld) [Time]Ordered By: Chucky Ochoa on 03-04-2024 Bedside Prothrombin Time 20.2 SEC High 11.7-14.[address] [facility] INR Coag (BldC) [Relative ti me]Ordered By: Chucky Ochoa on 02-05-2024 INR Coag (Bld) [Relative time] 2.2 {INR} [facility] Comment on above: Critical Value > 4.0 PT Coag (Bld) [Time]Ordered By: Chucky Ochoa on 02-05-2024 Bedside Prothrombin Time 22.8 SEC High 11.7-14.[address] [facility] Lamotrigine (Lamictal) Level on 09-25-2023 LAMOTRIGINE 4.0 ug/mL Normal 2.0-20.[address] [facility] Comment on above: Result Comment: Dete ction Limit = 1.0 Performed at: [address] [id number] Telephone Information Clerk: Brandon Wells MD, Phone: [phone] Performed By: #### L 3300.4400, L500.4050, L503.5510, L100.0500 #### [facility] [address] [place], [place], [id number] Ammoniaon 09-22-2023 Ammonia (P) [Moles/Vol] 13.0 umol/L Normal 11-[address] [facility] Comment on above: Performed By: #### L 3300.4400, L500.4050, L503.5510, L100.0500 #### [facility] [address] [place], [place], [id number] CBC-Complete Blood Cnt No Di ffon 09-22-2023 Erythrocyte distribution width (RBC) [Ratio] 14.4 % Normal 11.6-14.[address] [facility] Comment on above: Performed By: #### L 3300.4400, L500.4050, L503.5510, L100.0500 #### [facility] [address] [place], [address] Hematocrit (Bld) [Volume fraction] 41.1 % Normal 37-[address] [facility] Comment on above: Performed By: #### L 3300.4400, L500.4050, L503.5510, L100.0500 #### [facility] [address] [place], [address] Hemoglobin (Bld) [Mass/Vol] 12.9 g/dL Normal 12.0-15.[address] [facility] Comment on above: Performed By: #### L 3300.4400, L500.4050, L503.5510, L100.0500 #### [facility] [address] [place], [address] MCH (RBC) [Entitic mass] 28.3 pg Normal 27.0-32.[address] [facility] Comment on above: Performed By: #### L 3300.4400, L500.4050, L503.5510, L100.0500 #### [facility] [address] [place], [address] MCHC (RBC) [Mass/Vol] 31.4 g/dL Low 32-36 [facility] Comment on above: Performed By: #### L 3300.4400, L500.4050, L503.5510, L100.0500 #### [facility] [address] [place], [address] MCV (RBC) [Entitic vol] 90.1 fL Normal 81-99 [facility] Comment on above: Performed By: #### L 3300.4400, L500.4050, L503.5510, L100.0500 #### [facility] [address] [place], [address] Platelet mean volume (Bld) [Entitic vol] 10.9 fL Normal 6.2-12.[address] [facility] Comment on above: Performed By: #### L 3300.4400, L500.4050, L503.5510, L100.0500 #### [facility] [address] [place], [address] Platelets (Bld) [#/Vol] 402 10*3/uL Normal 150-[address] [facility] Comment on above: Performed By: #### L 3300.4400, L500.4050, L503.5510, L100.0500 #### [facility] [address] [place], [address] RBC (Bld) [#/Vol] 4.56 10*6/uL Normal 4.2-5.4 [facility] Comment on above: Performed By: #### L 3300.4400, L500.4050, L503.5510, L100.0500 #### [facility] [address] [place], [address] RDW SD 47.4 fl High 35.1-43.[address] [facility] Comment on above: Performed By: #### L 3300.4400, L500.4050, L503.5510, L100.0500 #### [facility] [address] [place], [address] WBC (Bld) [#/Vol] 8.5 10*3/uL Normal 4.4-11.0 [facility] Comment on above: Performed By: #### L 3300.4400, L500.4050, L503.5510, L100.0500 #### [facility] [address] [place], [address] [facility] 09-22-2023 Albumin [Mass/Vol] 3.5 g/dL Normal 3.2-5.0 [facility] Comment on above: Performed By: #### L 3300.4400, L500.4050, L503.5510, L100.0500 #### [facility] [address] [place], [address] Albumin/Globulin [Mass ratio] 1.0 {ratio} Normal 0.9-2.[address] [facility] Comment on above: Performed By: #### L 3300.4400, L500.4050, L503.5510, L100.0500 #### [facility] [address] [place], [address] ALK P 105 U/L Normal 45-[address] [facility] Comment on above: Performed By: #### L 3300.4400, L500.4050, L503.5510, L100.0500 #### [facility] [address] [place], [address] ALT [Catalytic activity/Vol] 14 U/L Normal 13-[address] [facility] Comment on above: Performed By: #### L 3300.4400, L500.4050, L503.5510, L100.0500 #### [facility] [address] [place], [address] AST [Catalytic activity/Vol] 20 U/L Normal 15-[address] [facility] Comment on above: Performed By: #### L 3300.4400, L500.4050, L503.5510, L100.0500 #### [facility] [address] [place], [address] Bilirubin [Mass/Vol] 0.30 mg/dL Normal 0.20-1.00 [facility] Comment on above: Result Comment: For patients on eltrombopag therapy, use of Dimension [place] TBIL is not recommended. Performed By: #### L 3300.4400, L500.4050, L503.5510, L100.0500 #### [facility] [address] [place], [address] BUN/CRE 14.9 RATIO Normal 10-[address] [facility] Comment on above: Performed By: #### L 3300.4400, L500.4050, L503.5510, L100.0500 #### [facility] [address] [place], [address] CA,Total 9.2 mg/dL Normal 8.5-10.[address] [facility] Comment on above: Performed By: #### L 3300.4400, L500.4050, L503.5510, L100.0500 #### [facility] [address] [place], [address] Chloride [Moles/Vol] 106 mmol/L Normal 98-107 [facility] Comment on above: Performed By: #### L 3300.4400, L500.4050, L503.5510, L100.0500 #### [facility] [address] [place], [address] CO2 [Moles/Vol] 29.0 mmol/L Normal 21.0-32.[address] [facility] Comment on above: Performed By: #### L 3300.4400, L500.4050, L503.5510, L100.0500 #### [facility] [address] [place], [address] Creatinine [Mass/Vol] 1.21 mg/dL High 0.55-1.02 [facility] Comment on above: Result Comment: The validity of the calculated GFR GFRAA in patients over 70 years has not been determined. Clinical correlation is essential. Performed By: #### L 3300.4400, L500.4050, L503.5510, L100.0500 #### [facility] [address] [place], [address] EST GFR - AA 54 mL/min Low >[address] [facility] Comment on above: Result Comment: Afri can Peruvian GFR Calc Performed By: #### L 3300.4400, L500.4050, L503.5510, L100.0500 #### [facility] [address] [place], [address] GAP 4 Low 5-[address] [facility] Comment on above: Performed By: #### L 3300.4400, L500.4050, L503.5510, L100.0500 #### [facility] [address] [place], [address] GFR/1.73 sq M.predicted among non-blacks MDRD (S/P/Bld) [Vol rate/Area] 45 mL/min/{1.73_m2} Low >60 [facility] Comment on above: Result Comment: Non- GFR Calc Performed By: #### L 3300.4400, L500.4050, L503.5510, L100.0500 #### [facility] [address] [place], [address] Globulin (S) [Mass/Vol] 3.6 g/dL Normal 2.2-4.[address] [facility] Comment on above: Performed By: #### L 3300.4400, L500.4050, L503.5510, L100.0500 #### [facility] [address] [place], [address] Glucose [Mass/Vol] 123 mg/dL High 74-106 [facility] Comment on above: Result Comment: Fast ing Glucose result from 100 to 125 mg/dL suggests IMPAIRED HOMEOSTASIS per A.D.A. criteria. Performed By: #### L 3300.4400, L500.4050, L503.5510, L100.0500 #### [facility] [address] [place], [address] Potassium [Moles/Vol] 5.5 mmol/L High 3.5-5.1 [facility] Comment on above: Performed By: #### L 3300.4400, L500.4050, L503.5510, L100.0500 #### [facility] [address] [place], [address] Sodium [Moles/Vol] 139 mmol/L Normal 136-145 [facility] Comment on above: Performed By: #### L 3300.4400, L500.4050, L503.5510, L100.0500 #### [facility] [address] [place], [address] T PROT 7.1 g/dL Normal 6.4-8.[address] [facility] Comment on above: Performed By: #### L 3300.4400, L500.4050, L503.5510, L100.0500 #### [facility] [address] [place], [address] Urea nitrogen [Mass/Vol] 18 mg/dL Normal 7-[address] [facility] Comment on above: Performed By: #### L 3300.4400, L500.4050, L503.5510, L100.0500 #### [facility] [address] [place], [place], [address] Neurology Visit Reporton Neurology Visit Report [facility] [address] [facility], [address] [place], [place] [address] OFFICE VISIT Date of Service: 09/22/23 MR#: [id number] Acct: [id number] Name: EZRA GONZALEZ Rep #: [id number] : 1935 Provider: Dr. Anant baez MD Age/Sex: 88/F [place] [facility] [place] Status: Signed 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 She has become lost while driving [...] be positi (more content not included)... Normal [facility] Capillary blood internationa l normalized ratio (INR)Ordered By: Alexandra Hagen on 06-30-2023 INR Coag (BldC) [Relative time] 2.[address] [facility] Comment on above: Critical Value > 4.0 Whole blood prothrombin time Ordered By: Alexandra Hagen on 06-30-2023 PT Coag (Bld) [Time] 24.6 s 11.7-14.9 [facility] CARECOORDon 2023 CARECOTUCKER Patient Choice Patient Name: EZRA GONZALEZ Date of : 1935 [facility] CARECOORDon 06-20-20[facility] Next Site of Care Admission Date: 06/16/2023 01:38 PM Patient Name: EZRA GONZALEZ Location: [address] [id number] Date of : 1935 ------- Placement Information ------- Referral Type:Home Health Care Services - New Referral ID:[id number] Provider Name:[facility] Address 1:[address] [facility] [address] [facility] Address 2: City:[place] Selection Factors:Patient/Famil y Choice State:[place] Normal [facility] CARECOORD TCC updated SW, pt i [...] pt order lunch. Notified TONIO, RN and munitions worker. . Normal [facility] CARECOORD I SPOKE WITH DONOVAN, BOTTOM BUFFER AT [facility]. THEY CAN TAKE PT BACK TODAY. THEY CAN PROVIDE TRANSPORTATION BACK TO FACILITY AROUND 3 PM. AWARE PT WILL NEED PT AT FACILITY, THEY USE [facility], DID LET HC LIAISON NOW. WENT TO [...] CHAT WITH CONNIE PEREZ REGARDING THIS. Normal [facility] Laboratory - Chemistry and C hemistry - challengeon 06-20-2023 Glucose [Mass/Vol] 125 mg/dL High 70 - 100 mg/dL [facility] - Coagulationon 0 06-20-2023 PT Coag (Bld) [Time] 11.3 s 9.0 - 12.[address] [facility] No Panel Informationon 06-19 Interpretation and review of laboratory results Abnormal [facility] Performed by: [facility], [address] [place] [address], [place] [address] CLIA ID: [id number] [facility] Radiology Study observation (narrative) Janhandy isabel PROTHROMBIN TIMEon INR Coag (PPP) [Relative time] 1.1 {INR} Normal 0.9-1.1 [facility] Comment on above: Result Comment: Reji mmended [...] Myocardial Infarction Performed By: #### L AB320 ####Single Pointed Operator: ALEXANDRA BUSTAMANTE ([id number])[facility] ([facility])[address] [place] [address] PT Coag (PPP) [Time] 11.3 s Normal 9.0-12.0 [facility] Comment on above: Performed By: #### L AB320 ####Single Pointed Operator: ALEXANDRA BUSTAMANTE ([id number])[facility] ([facility])[address] [place] [address] PT Coag (Bld) [Time]on 06-19 INR Coag (PPP) [Relative time] 1.1 {INR} 0.9 - 1.1 [facility] Comment on above: Recommended Anticoag [...] Infarction Interpretation and review of laboratory results [facility] Progress Noteon 06-20-2023 Progress Note Dc via CRISTINA cot to Josep MCARTHUR with all belongings [facility] Progress Note Called report to Maryanne at [facility] Progress Note [facility] Anticoagulatio n Management Service (RIA) Inpatient Warfarin Consult HPI: Ezra Gonzalez is a 87 y.o. female admitted on 06/16/2023 for Closed displaced fracture of medial condyle of right humerus, initial encounter [S42.538L] History reviewed. No pertinent past medical history. [...] patient can be classified as high risk ([id number] = 8). 2. Monitor for s/s of bleeding and drug interactions. Will adjust dose accordingly 3. RIA will manage while inpatient Dc Lombardi, PharmD Candidate Jp BolanosD, BCPS RIA is available daily [phone] via [employer]. If no response on digitalbox Chat then please page [phone]. Normal [facility] BASIC METABOLIC PANELon 03-2 Anion gap [Moles/Vol] 11 mmol/L Normal 3-13 [facility] Comment on above: Performed By: #### L [id number] ####Single Pointed Operator: ALEXANDRA BUSTAMANTE ([phone])[facility] ([facility])[address] [place] [address] Calcium [Mass/Vol] 8.3 mg/dL Low 8.4-10.4 [facility] Comment on above: Performed By: #### L AB15 ####Single Pointed Operator: ALEXANDRA BUSTAMANTE ([phone])[facility] ([facility])[address] [place] [address] [place] Chloride [Moles/Vol] 102 mmol/L Normal 98-107 [facility] Comment on above: Performed By: #### L AB15 ####Single Pointed Operator: ALEXANDRA BUSTAMANTE ([phone])[facility] ([facility])[address] [place] [address] [place] CO2 [Moles/Vol] 21 mmol/L Low 22-30 [facility] Comment on above: Performed By: #### L AB15 ####Single Pointed Operator: ALEXANDRA BUSTAMANTE ([phone])[facility])[address] [place] [address] Creatinine [Mass/Vol] 0.84 mg/dL Normal 0.52-1.04 [facility] Comment on above: Performed By: #### L AB15 ####Single Pointed Operator: ALEXANDRA BUSTAMANTE ([phone])[facility])[address] [place] [address] GLOMERULAR FILTRATION RATE ML/MIN/1.73 SQ M.PREDICTED 67.4 mL/min/1.73m*2 Normal >60.0 [facility] Comment on above: Result Comment: Calc ulation based on the Chronic Kidney Disease Epidemiology Collaboration (CKD-EPI) equation refit without adjustment for race Performed By: #### L AB15 ####Single Pointed Operator: ALEXANDRA BUSTAMANTE ([phone])[facility])[address] [place] [address] Glucose [Mass/Vol] 263 mg/dL High 70-100 [facility] Comment on above: Performed By: #### L AB15 ####Single Pointed Operator: ALEXANDRA BUSTAMANTE ([phone])[facility])[address] [place] [address] Potassium [Moles/Vol] 4.7 mmol/L Normal 3.5-5.1 [facility] Comment on above: Performed By: #### L AB15 ####Single Pointed Operator: ALEXANDRA BUSTAMANTE ([phone])[facility])[address] [place] [address] Sodium [Moles/Vol] 133 mmol/L Low 135-145 [facility] Comment on above: Performed By: #### L AB15 ####Single Pointed Operator: ALEXANDRA BUSTAMANTE ([phone])[facility])[address] [place] [address] Urea nitrogen [Mass/Vol] 27 mg/dL High 7-17 [facility] Comment on above: Performed By: #### L AB15 ####Single Pointed Operator: ALEXANDRA BUSTAMANTE ([id number])[facility] ([address] Basic metabolic 1998 panelon 06-19-2023 Anion gap [Moles/Vol] 11 mmol/L 3 - 13 mmol/L [facility] Calcium [Mass/Vol] 8.3 mg/dL Low 8.4 - 10. 4 mg/dL [facility] Chloride [Moles/Vol] 102 mmol/L 98 - 10 7 mmol/L [facility] CO2 [Moles/Vol] 21 mmol/L Low 22 - 30 mmol/L [facility] Creatinine [Mass/Vol] 0.84 mg/dL 0.52 - 1.04 mg/dL [facility] GFR/1.73 sq M.predicted MDRD (S/P/Bld) [Vol rate/Area] 67.4 mL/min/{1.73_m2} - PINF [facility] Comment on above: Calculation based on the Chronic Kidney Disease Epidemiology Collaboration (CKD-EPI) equation refit without adjustment for race Glucose [Mass/Vol] 263 mg/dL High 70 - 100 mg/dL [facility] Interpretation and review of laboratory results Abnormal [facility] Potassium [Moles/Vol] 4.7 mmol/L 3.5 - 5.1 mmol/L [facility] Sodium [Moles/Vol] 133 mmol/L Low 135 - 145 mmol/L [facility] Urea nitrogen [Mass/Vol] 27 mg/dL High 7 - 17 mg/d L [facility] CARECOORDon 06-19-2023 CARECOTUCKER DAY #1 S/P ORIF OF RIGHT ARM. WAITING FOR PT/OT EVALS FOR DC PLANNING. Normal [facility] CBC W Auto Differential pane l (Bld)Ordered By: Leona Thakur on 06-19-2023 Basophils (Bld) [#/Vol] 0.0 10*3/uL 0.0 - 0.2 10*3/uL [facility] Basophils/100 WBC (Bld) 0.2 % 0.0 - 2.0 % [facility] Eosinophils (Bld) [#/Vol] 0.0 10*3/uL 0. 0 - 0.5 10*3/uL [facility] Eosinophils/100 WBC (Bld) 0.0 % 0.0 - 6.0 % [facility] Erythrocyte distribution width (RBC) [Ratio] 13.6 % 11.5 - 15.0 % [facility] Hematocrit (Bld) [Volume fraction] 35.0 % 35.0 - 47.0 % [facility] Hemoglobin (Bld) [Mass/Vol] 11.4 g/dL Low 11.7 - 16.0 g/dL [facility] Immature granulocytes (Bld) [#/Vol] 0.1 10*3/uL High NINF - 0.1 10*3/uL [facility] Immature granulocytes/100 WBC (Bld) 0.6 % 0.0 - 2.0 % [facility] Interpretation and review of laboratory results Abnormal [facility] th Lymphocytes (Bld) [#/Vol] 0.8 10*3/uL Low 1. 0 - 4.3 10*3/uL [facility] Lymphocytes/100 WBC (Bld) 6.4 % Low 15 .0 - 45.0 % [facility] MCH (RBC) [Entitic mass] 28.6 pg 26. 0 - 34.0 pg [facility] MCHC (RBC) [Mass/Vol] 32.6 % 30.5 - 36.0 % [facility] MCV (RBC) [Entitic vol] 87.9 fL 77.0 - 99.0 fL [facility] Monocytes (Bld) [#/Vol] 0.6 10*3/uL 0.0 - 0.9 10*3/uL [facility] Monocytes/100 WBC (Bld) 4.6 % Low 5.0 - 13.0 % [facility] Neutrophils (Bld) [#/Vol] 11.2 10*3/uL High 1. 8 - 7.5 10*3/uL [facility] Neutrophils/100 WBC (Bld) 88.2 % High 38 .0 - 82.0 % [facility] Nucleated RBC/100 WBC (Bld) [Ratio] 0.0 % [facility] Platelet mean volume (Bld) [Entitic vol] 10.2 fL 9.0 - 12.7 fL [facility] Platelets (Bld) [#/Vol] 260 10*3/uL 140 - 440 10*3/uL [facility] RBC (Bld) [#/Vol] 3.98 10*6/uL 3.80 - 5.2 0 10*6/uL [facility] WBC (Bld) [#/Vol] 12.7 10*3/uL High 3.6 - 10.7 10*3/uL [facility] CBC WITH AUTO DIFFERENTIALon 06-19-2023 Basophils (Bld) [#/Vol] 0.0 10*3/uL Normal 0.0-0.2 [facility] Comment on above: Performed By: #### L [id number] ####Single Pointed Operator: ALEXANDRA BUSTAMANTE ([phone])[facility] ([facility])[address] [place] [address] Basophils/100 WBC (Bld) 0.2 % Normal 0.0-2.0 [facility] Comment on above: Performed By: #### L [id number] ####Single Pointed Operator: ALEXANDRA BUSTAMANTE ([phone])[facility] ([facility])[address] [place] [address] Eosinophils (Bld) [#/Vol] 0.0 10*3/uL Normal 0.0-0.5 [facility] Comment on above: Performed By: #### L [id number] ####Single Pointed Operator: ALEXANDRA BUSTAMANTE ([phone])[facility])[address] [place] [address] Eosinophils/100 WBC (Bld) 0.0 % Normal 0.0-6.0 [facility] Comment on above: Performed By: #### L [id number] ####Single Pointed Operator: ALEXANDRA BUSTAMANTE ([phone])[facility])[address] [place] [address] Erythrocyte distribution width (RBC) [Ratio] 13.6 % Normal 11.5-15.0 [facility] Comment on above: Performed By: #### L [id number] ####Single Pointed Operator: ALEXANDRA BUSTAMANTE ([phone])[facility])[address] [place] [address] Hematocrit (Bld) [Volume fraction] 35.0 % Normal 35.0-47.0 [facility] Comment on above: Performed By: #### L [id number] ####Single Pointed Operator: ALEXANDRA BUSTAMANTE ([phone])[facility])[address] [place] [address] Hemoglobin (Bld) [Mass/Vol] 11.4 g/dL Low 11.7-16.0 [facility] Comment on above: Performed By: #### L [id number] ####Single Pointed Operator: ALEXANDRA BUSTAMANTE ([phone])[facility])[address] [place] [address] IMMATURE GRANS % 0.6 % Normal 0.0-2.0 [facility] Comment on above: Performed By: #### L [id number] ####Single Pointed Operator: ALEXANDRA BUSTAMANTE ([phone])[facility])[address] [place] [address] IMMATURE GRANS ABSOLUTE 0.1 10*3/uL High <0.1 [facility] Comment on above: Performed By: #### L [id number] ####Single Pointed Operator: ALEXANDRA BUSTAMANTE ([phone])[facility])[address] [place] [address] Lymphocytes (Bld) [#/Vol] 0.8 10*3/uL Low 1.0-4.3 [facility] Comment on above: Performed By: #### L [id number] ####Single Pointed Operator: ALEXANDRA BUSTAMANTE ([phone])[facility])[address] [place] [address] Lymphocytes/100 WBC (Bld) 6.4 % Low 15.0-45.0 [facility] Comment on above: Performed By: #### L [id number] ####Single Pointed Operator: ALEXANDRA BUSTAMANTE ([phone])[facility])[address] [place] [address] MCH (RBC) [Entitic mass] 28.6 pg Normal 26.0-34.0 [facility] Comment on above: Performed By: #### L [id number] ####Single Pointed Operator: ALEXANDRA BUSTAMANTE ([phone])[facility] ([facility])[address] [place] [address] MCHC 32.6 % Normal 30.5-36.0 [facility] Comment on above: Performed By: #### L [id number] ####Single Pointed Operator: ALEXANDRA BUSTAMANTE ([phone])[facility] ([facility])[address] [place] [address] MCV (RBC) [Entitic vol] 87.9 fL Normal 77.0-99.0 [facility] Comment on above: Performed By: #### L [id number] ####Single Pointed Operator: ALEXANDRA BUSTAMANTE ([phone])[facility])[address] [place] [address] Monocytes (Bld) [#/Vol] 0.6 10*3/uL Normal 0.0-0.9 [facility] Comment on above: Performed By: #### L [id number] ####Single Pointed Operator: ALEXANDRA BUSTAMANTE ([phone])[facility] ([facility])[address] [place] [address] Monocytes/100 WBC (Bld) 4.6 % Low 5.0-13.0 [facility] Comment on above: Performed By: #### L [id number] ####Single Pointed Operator: ALEXANDRA BUSTAMANTE ([id number])[facility] ([facility])[address] [place] [address] NEUTROPHILS ABSOLUTE 11.2 10*3/uL High 1.8-7.5 [facility] Comment on above: Performed By: #### L [id number] ####Single Pointed Operator: ALEXANDRA BUSTAMANTE ([phone])[facility])[address] [place] [address] Neutrophils/100 WBC (Bld) 88.2 % High 38.0-82.0 [facility] Comment on above: Performed By: #### L [id number] ####Single Pointed Operator: ALEXANDRA BUSTAMANTE ([phone])[facility] ([facility])[address] [place] [address] NRBC 0.0 /100 WBCs Normal 0.0-2.0 [facility] Comment on above: Performed By: #### L [id number] ####Single Pointed Operator: ALEXANDRA BUSTAMANTE ([phone])[facility] ([facility])[address] [place] [address] Platelet mean volume (Bld) [Entitic vol] 10.2 fL Normal 9.0-12.7 [facility] Comment on above: Performed By: #### L [id number] ####Single Pointed Operator: ALEXANDRA BUSTAMANTE ([phone])[facility] ([facility])[address] [place] [address] Platelets (Bld) [#/Vol] 260 10*3/uL Normal 140-440 [facility] Comment on above: Performed By: #### L [id number] ####Single Pointed Operator: ALEXANDRA BUSTAMANTE ([id number])[facility] ([facility])[address] [place] [address] RBC (Bld) [#/Vol] 3.98 10*6/uL Normal 3.80-5.20 [facility] Comment on above: Performed By: #### L [id number] ####Single Pointed Operator: ALEXANDRA BUSTAMANTE ([phone])[facility] ([facility])[address] [place] [address] WBC (Bld) [#/Vol] 12.7 10*3/uL High 3.6-10.7 [facility] Comment on above: Performed By: #### L [id number] ####Single Pointed Operator: ALEXANDRA BUSTAMANTE ([phone])[facility])[address] [place] [address] Laboratory - Chemistry and C hemistry - challengeon 06-19-2023 Glucose [Mass/Vol] 220 mg/dL High 70 - 100 mg/dL [facility] Glucose [Mass/Vol] 137 mg/dL High 70 - 100 mg/dL [facility] Glucose [Mass/Vol] 141 mg/dL High 70 - 100 mg/dL [facility] Glucose [Mass/Vol] 177 mg/dL High 70 - 100 mg/dL [facility] Laboratory - Coagulationon 0 06-19-2023 PT Coag (Bld) [Time] 11.3 s 9.0 - 12.[address] [facility] No Panel Informationon 06-18 Interpretation and review of laboratory results Abnormal [facility] th Performed by: [facility], [address] [place] [address] CLIA ID: [id number] [facility] Interpretation and review of laboratory results Abnormal [facility] th Performed by: [facility], [address] [place] [address] CLIA ID: [id number] [facility] Interpretation and review of laboratory results Abnormal [facility] th Performed by: [facility], [address] [place] [address] CLIA ID: [id number] [facility] Interpretation and review of laboratory results Abnormal [facility] th Performed by: [facility], [address] [place] [address] CLIA ID: [id number] [facility] Radiology Study observation (narrative) [facility] Radiology Study observation (narrative) [facility] Radiology Study observation (narrative) [facility] Rad[facility] Study observation (narrative) [facility] PROTHROMBIN TIMEon INR Coag (PPP) [Relative time] 1.1 {INR} Normal 0.9-1.1 [facility] Comment on above: Result Comment: Reji mmended [...] Myocardial Infarction Performed By: #### L [id number] ####Single Pointed Operator: ALEXANDRA BUSTAMANTE ([id number])[facility] ([facility])[address] [place] [address] PT Coag (PPP) [Time] 11.3 s Normal 9.0-12.0 [facility] Comment on above: Performed By: #### L [id number] ####Single Pointed Operator: ALEXANDRA BUSTAMANTE ([phone])[facility] ([facility] PT Coag (Bld) [Time]on 06-18 INR Coag (PPP) [Relative time] 1.1 {INR} 0.9 - 1.1 [facility] Comment on above: Recommended Anticoag [...] Interpretation and review of laboratory results Normal [facility] Progress Noteon 06-19-2023 Progress Note [facility] Anticoagulatio n Management Service (RIA) Inpatient Warfarin Consult HPI: Ezra Gonzalez is a 87 y.o. female admitted on 06/16/2023 for Closed displaced fracture of medial condyle of right humerus, initial encounter [S42.852F] History reviewed. No pertinent past medical history. [...] patient can be classified as high risk ([id number] = 8). 2. Monitor for s/s of bleeding and drug interactions. Will adjust dose accordingly 3. RIA will manage while inpatient Dc Lombardi, JpD Candidate Jp BolanosD, [facility] RIA is available daily [phone] via digitalbox Chat. If no response on digitalbox Chat then please page [phone]. Normal [facility] BASIC METABOLIC PANELon 03- Anion gap [Moles/Vol] 10 mmol/L Normal 3-13 [facility] Comment on above: Performed By: #### L [id number] ####Single Pointed Operator: ALEXANDRA BUSTAMANTE ([phone])[facility] ([facility])[address] [place] [address] Calcium [Mass/Vol] 8.8 mg/dL Normal 8.4-10.4 [facility] Comment on above: Performed By: #### L AB15 ####Single Pointed Operator: ALEXANDRA BUSTAMANTE ([phone])[facility] ([facility])[address] [place] [address] Chloride [Moles/Vol] 98 mmol/L Normal 98-107 [facility] Comment on above: Performed By: #### L AB15 ####Single Pointed Operator: ALEXANDRA BUSTAMANTE ([phone])[facility] ([facility])[address] [place] [address] CO2 [Moles/Vol] 25 mmol/L Normal 22-30 [facility] Comment on above: Performed By: #### L AB15 ####Single Pointed Operator: ALEXANDRA BUSTAMANTE ([id number])[facility] ([facility])[address] [place] [address] Creatinine [Mass/Vol] 0.83 mg/dL Normal 0.52-1.04 [facility] Comment on above: Performed By: #### L AB15 ####Single Pointed Operator: ALEXANDRA BUSTAMANTE ([phone])[facility] ([facility])[address] [place] [address] GLOMERULAR FILTRATION RATE ML/MIN/1.73 SQ M.PREDICTED 68.3 mL/min/1.73m*2 Normal >60.0 [facility] Comment on above: Result Comment: Calc ulation based on the Chronic Kidney Disease Epidemiology Collaboration (CKD-EPI) equation refit without adjustment for race Performed By: #### L AB15 ####Single Pointed Operator: ALEXANDRA BUSTAMANTE ([id number])[facility] ([facility])[address] [place] [address] Glucose [Mass/Vol] 163 mg/dL Normal [facility] Comment on above: Performed By: #### L AB15 ####Single Pointed Operator: ALEXANDRA BUSTAMANTE ([id number])[facility] ([facility])[address] [place] [address] Order Comment: If no t done within the last 3 mos Performed By: #### L AB90 ####Single Pointed Operator: ALEXANDRA BUSTAMANTE ([phone])[facility] ([facility])[address] [place] [address] Potassium [Moles/Vol] 4.6 mmol/L Normal 3.5-5.1 [facility] Comment on above: Performed By: #### L AB15 ####Single Pointed Operator: ALEXANDRA BUSTAMANTE ([phone])[facility] ([facility])[address] [place] [address] Sodium [Moles/Vol] 133 mmol/L Low 135-145 [facility] Comment on above: Performed By: #### L AB15 ####Single Pointed Operator: ALEXANDRA BUSTAMANTE ([phone])[facility])[address] [place] [address] Urea nitrogen [Mass/Vol] 24 mg/dL High 7-17 [facility] Comment on above: Performed By: #### L AB15 ####Single Pointed Operator: ALEXANDRA BUSTAMANTE ([phone])[facility] ([facility])[address] [place] [address] Basic metabolic 1998 panelon 06-18-2023 Anion gap [Moles/Vol] 10 mmol/L 3 - 13 mmol/L [facility] Calcium [Mass/Vol] 8.8 mg/dL 8.4 - 10. 4 mg/dL [facility] Chloride [Moles/Vol] 98 mmol/L 98 - 10 7 mmol/L [facility] CO2 [Moles/Vol] 25 mmol/L 22 - 30 mmol/L [facility] Creatinine [Mass/Vol] 0.83 mg/dL 0.52 - 1.04 mg/dL [facility] GFR/1.73 sq M.predicted MDRD (S/P/Bld) [Vol rate/Area] 68.3 mL/min/{1.73_m2} - PINF [facility] Comment on above: Calculation based on the Chronic Kidney Disease Epidemiology Collaboration (CKD-EPI) equation refit without adjustment for race Glucose [Mass/Vol] 163 mg/dL High 70 - 100 mg/dL [facility] Interpretation and review of laboratory results Abnormal [facility] Potassium [Moles/Vol] 4.6 mmol/L 3.5 - 5.1 mmol/L [facility] Sodium [Moles/Vol] 133 mmol/L Low 135 - 145 mmol/L [facility] Urea nitrogen [Mass/Vol] 24 mg/dL High 7 - 17 mg/d L [facility] CARECOORDon 06-18-2023 [facility] Initial Assessment Date: 06/18/2023 Patient Name: Ezra Gonzalez : 1935 Patient Information Source of Information: Patient Cognition/Language: WFL - Within Functional Limits Permission given to speak with patient account development representative/chaitanya chávez as indicated: No Confirmation of Payer with patient/family: Yes Payer Name: [facility] [place]: No Confirmation of Primary Care Physician: Confirmed [...] Laundry/Cleaning: Assistance Provider Laundry/Cleaning Assistance Provider Name: [place] STAFF Finances/Bill Paying: Independent Communication: Independent Types [...] CONTINUE TO FOLLOW. Shikha Gray RN Normal [facility] CBC W Auto Differential pane l (Bld)Ordered By: Nir Meza on 06-18-2023 Basophils (Bld) [#/Vol] 0.1 10*3/uL 0.0 - 0.2 10*3/uL [facility] Basophils/100 WBC (Bld) 0.4 % 0.0 - 2.0 % [facility] Eosinophils (Bld) [#/Vol] 0.2 10*3/uL 0. 0 - 0.5 10*3/uL [facility] Eosinophils/100 WBC (Bld) 1.3 % 0.0 - 6.0 % [facility] Erythrocyte distribution width (RBC) [Ratio] 13.8 % 11.5 - 15.0 % [facility] Hematocrit (Bld) [Volume fraction] 44.1 % 35.0 - 47.0 % [facility] Hemoglobin (Bld) [Mass/Vol] 13.9 g/dL 11.7 - 16.0 g/dL [facility] Immature granulocytes (Bld) [#/Vol] 0.1 10*3/uL High NINF - 0.1 10*3/uL [facility] Immature granulocytes/100 WBC (Bld) 0.4 % 0.0 - 2.0 % [facility] Interpretation and review of laboratory results Abnormal [facility] th Lymphocytes (Bld) [#/Vol] 2.0 10*3/uL 1. 0 - 4.3 10*3/uL [facility] Lymphocytes/100 WBC (Bld) 13.1 % Low 15 .0 - 45.0 % [facility] MCH (RBC) [Entitic mass] 28.0 pg 26. 0 - 34.0 pg [facility] MCHC (RBC) [Mass/Vol] 31.5 % 30.5 - 36.0 % [facility] MCV (RBC) [Entitic vol] 88.9 fL 77.0 - 99.0 fL [facility] Monocytes (Bld) [#/Vol] 1.4 10*3/uL High 0.0 - 0.9 10*3/uL [facility] Monocytes/100 WBC (Bld) 9.0 % 5.0 - 13.0 % [facility] Neutrophils (Bld) [#/Vol] 11.8 10*3/uL High 1. 8 - 7.5 10*3/uL [facility] Neutrophils/100 WBC (Bld) 75.8 % 38 .0 - 82.0 % [facility] Nucleated RBC/100 WBC (Bld) [Ratio] 0.0 % [facility] Platelet mean volume (Bld) [Entitic vol] 10.1 fL 9.0 - 12.7 fL [facility] Platelets (Bld) [#/Vol] 375 10*3/uL 140 - 440 10*3/uL [facility] RBC (Bld) [#/Vol] 4.96 10*6/uL 3.80 - 5.2 0 10*6/uL [facility] WBC (Bld) [#/Vol] 15.5 10*3/uL High 3.6 - 10.7 10*3/uL [facility] CBC WITH AUTO DIFFERENTIALon 06-18-2023 Basophils (Bld) [#/Vol] 0.1 10*3/uL Normal 0.0-0.2 [facility] Comment on above: Performed By: #### L [id number] ####Single Pointed Operator: ALEXANDRA BUSTAMANTE ([phone])[address] Basophils/100 WBC (Bld) 0.4 % Normal 0.0-2.0 [facility] Comment on above: Performed By: #### L [id number] ####Single Pointed Operator: ALEXANDRA BUSTAMANTE ([phone])[facility])[address] [place] [address] Eosinophils (Bld) [#/Vol] 0.2 10*3/uL Normal 0.0-0.5 [facility] Comment on above: Performed By: #### L [id number] ####Single Pointed Operator: ALEXANDRA BUSTAMANTE ([phone])[facility])[address] [place] [address] Eosinophils/100 WBC (Bld) 1.3 % Normal 0.0-6.0 [facility] Comment on above: Performed By: #### L [id number] ####Single Pointed Operator: ALEXANDRA BUSTAMANTE ([id number])[address] Erythrocyte distribution width (RBC) [Ratio] 13.8 % Normal 11.5-15.0 [facility] Comment on above: Performed By: #### L [id number] ####Single Pointed Operator: ALEXANDRA BUSTAMANTE ([phone])[facility])[address] [place] [address] Hematocrit (Bld) [Volume fraction] 44.1 % Normal 35.0-47.0 [facility] Comment on above: Performed By: #### L [id number] ####Single Pointed Operator: ALEXANDRA BUSTAMANTE ([id number])[address] Hemoglobin (Bld) [Mass/Vol] 13.9 g/dL Normal 11.7-16.0 [facility] Comment on above: Performed By: #### L [id number] ####Single Pointed Operator: ALEXANDRA BUSTAMANTE ([phone])[facility])[address] [place] [address] IMMATURE GRANS % 0.4 % Normal 0.0-2.0 [facility] Comment on above: Performed By: #### L [id number] ####Single Pointed Operator: ALEAXNDRA BUSTAMANTE ([id number])[facility])[address] [place] [address] IMMATURE GRANS ABSOLUTE 0.1 10*3/uL High <0.1 [facility] Comment on above: Performed By: #### L [id number] ####Single Pointed Operator: ALEXANDRA BUSTAMANTE ([phone])[facility])[address] [place] [address] Lymphocytes (Bld) [#/Vol] 2.0 10*3/uL Normal 1.0-4.3 [facility] Comment on above: Performed By: #### L [id number] ####Single Pointed Operator: ALEXANDRA BUSTAMANTE ([id number])[facility])[address] [place] [address] Lymphocytes/100 WBC (Bld) 13.1 % Low 15.0-45.0 [facility] Comment on above: Performed By: #### L [id number] ####Single Pointed Operator: ALEXANDRA BUSTAMANET ([phone])[facility])[address] [place] [address] MCH (RBC) [Entitic mass] 28.0 pg Normal 26.0-34.0 [facility] Comment on above: Performed By: #### L [id number] ####Single Pointed Operator: ALEXANDRA BUSTAMANTE ([id number])[facility])[address] [place] [address] MCHC 31.5 % Normal 30.5-36.0 [facility] Comment on above: Performed By: #### L [id number] ####Single Pointed Operator: ALEXANDRA BUSTAMANTE ([id number])[facility])[address] [place] [address] MCV (RBC) [Entitic vol] 88.9 fL Normal 77.0-99.0 [facility] Comment on above: Performed By: #### L [id number] ####Single Pointed Operator: ALEXANDRA BUSTAMANTE ([id number])[facility])[address] [place] [address] Monocytes (Bld) [#/Vol] 1.4 10*3/uL High 0.0-0.9 [facility] Comment on above: Performed By: #### L [id number] ####Single Pointed Operator: ALEXANDRA BUSTAMANTE ([phone])[facility] ([facility])[address] [place] [address] Monocytes/100 WBC (Bld) 9.0 % Normal 5.0-13.0 [facility] Comment on above: Performed By: #### L [id number] ####Single Pointed Operator: ALEXANDRA BUSTAMANTE ([id number])[facility] ([facility])[address] [place] [address] NEUTROPHILS ABSOLUTE 11.8 10*3/uL High 1.8-7.5 [facility] Comment on above: Performed By: #### L [id number] ####Single Pointed Operator: ALEXANDRA BUSTAMANTE ([phone])[facility] ([facility])[address] [place] [address] Neutrophils/100 WBC (Bld) 75.8 % Normal 38.0-82.0 [facility] Comment on above: Performed By: #### L [id number] ####Single Pointed Operator: ALEXANDRA BUSTAMANTE ([id number])[facility] ([facility])[address] [place] [address] NRBC 0.0 /100 WBCs Normal 0.0-2.0 [facility] Comment on above: Performed By: #### L [id number] ####Single Pointed Operator: ALEXANDRA BUSTAMANTE ([phone])[facility] ([facility])[address] [place] [address] Platelet mean volume (Bld) [Entitic vol] 10.1 fL Normal 9.0-12.7 [facility] Comment on above: Performed By: #### L [id number] ####Single Pointed Operator: ALEXANDRA BUSTAMANTE ([phone])[facility] ([facility])[address] [place] [address] [place] Platelets (Bld) [#/Vol] 375 10*3/uL Normal 140-440 [facility] Comment on above: Performed By: #### L [id number] ####Single Pointed Operator: ALEXANDRA BUSTAMANTE ([phone])[facility])[address] [place] [address] RBC (Bld) [#/Vol] 4.96 10*6/uL Normal 3.80-5.20 [facility] Comment on above: Performed By: #### L [id number] ####Single Pointed Operator: ALEXANDRA BUSTAMANTE ([id number])[facility])[address] [place] [address] WBC (Bld) [#/Vol] 15.5 10*3/uL High 3.6-10.7 [facility] Comment on above: Performed By: #### L [id number] ####Single Pointed Operator: ALEXANDRA BUSTAMANTE ([phone])[facility])[address] [place] [address] HEMOGLOBIN A1Con 06-18-2023 HbA1c (Bld) [Mass fraction] 7.3 % High <5.7 [facility] Comment on above: Order Comment: If no t done within the last 3 mos Result Comment: Norm al less than 5.7% Prediabetes 5.7% to 6.4% Diabetes 6.5% or higher --HgbA1C levels may not be accurate in patients who have renal disease, received recent blood transfusions, are anemic, or who have dyshemoglobinemia. Performed By: #### L [id number] ####Single Pointed Operator: ALEXANDRA BUSTAMANTE ([phone])[facility])[address] [place] [address] IDNon 06-18-2023 IDN The patient is Moderately Stable - Low risk of patient condition declining or worsening The patient's goals for the shift include rest and pain control The clinical goals for the shift include rest and pain control Normal [facility] Laboratory - Chemistry and C hemistry - challengeon 06-18-2023 Glucose [Mass/Vol] 189 mg/dL High 70 - 100 mg/dL [facility] Procalcitonin [Mass/Vol] 0.06 ng/mL 0.0 0 - 0.09 ng/mL [facility] Glucose [Mass/Vol] 121 mg/dL High 70 - 100 mg/dL [facility] Average glucose Estimated from glycated hemoglobin (Bld) [Mass/Vol] 163 mg/dL [facility] Laboratory - Hematology and Cell countson 06-18-2023 HbA1c (Bld) [Mass fraction] 7.3 % High NINF - 5.7 % [facility] Comment on above: Normal less than 5.7 % Prediabetes 5.7% to 6.4% Diabetes 6.5% or higher --HgbA1C levels may not be accurate in patients who have renal disease, received recent blood transfusions, are anemic, or who have dyshemoglobinemia. No Panel Informationon 06-17 Interpretation and review of laboratory results Abnormal [facility] Performed by: [facility], [address] [place] [address] CLIA ID: [id number] [facility] There is no interpretation needed for this exam. IMAGING Interpretation and review of laboratory results Abnormal [facility] Performed by: [facility], [address] [place] [address] CLIA ID: [id number] [facility] Interpretation and review of laboratory results Abnormal [facility] Radiology Study observation (narrative) [facility] Rad[facility] Study observation (narrative) [facility] alth Nursing Noteon 06-18-2023 Nursing Note Pt states no need to contact family. RN on floor states she will call pt's son,. Normal [facility] Nursing Note Patients wallet and watch locked up with security. OR notified patient states she has latex allergy Patients purse and glasses taken to pacu Normal [facility] Op Noteon 06-18-2023 Op Note [facility] OR [address] [facility] [address] Dept: [phone] Loc: [phone] Operative Report Patient Name: Ezra Gonzalez Date of : 1935 Date of Surgery: 06/18/23 Pre-operative diagnosis: Right intra-articular distal humerus fracture Post-operative diagnosis: Same Procedure(s): Open reduction internal fixation of right intra-articular distal humerus fracture Surgeon: Benitez Givens M.D. Celery Wrapper(s): Lexa Aparicio M.D. Anesthesia: General and Regional [...] as well as medical complications such as DE, stroke, PE, DVT, and even . Pt [...] Lexa Aparicio MD at 06/18/23, 7:20 PM [facility] Op Note Date: 06/16/2023 - 06/18/2023 Location: [facility] OR Name: Ezar Gonzalez, : 1935, Diagnosis Pre-op Diagnosis * Closed displaced fracture of medial condyle of right humerus, initial encounter [S42.788R] Post-op Diagnosis * Closed displaced fracture of medial condyle of right humerus, initial encounter [S42.461A] Procedures OPEN REDUCTION INTERNAL FIXATION RIGHT DISTAL HUMERUS 40612 - CA OPTX HUMERAL SHFT FX W/PLATE/SCREWS W/WOCERCLAGE Surgeons * Benitez Givens - Primary Procedure Summary Anesthesia: * No anesthesia type entered * ASA: III Estimated Blood Loss: Minimal Drains: * None in log * Staff: Nursing Clinical Director: Vivian Herrera RN Scrub Person: Linda Alvarez [...] in 2 weeks -Ortho to follow. Normal [facility] PROCALCITONIN TESTon 024 PROCALCITONIN 0.06 ng/mL Normal 0.00-0.09 [facility] Comment on above: Result Comment: PUMA Leal COMMENTS: PCT <0.50 = Low risk of severe sepsis and/or septic shock. PCT >2.00 = High risk of severe sepsis and/or septic shock. Performed By: #### L [id number] ####Single Pointed Operator: ALEXANDRA BUSTAMANTE ([id number])[facility] ([address] Procalcitonin [Mass/Vol]on 0 06-18-2023 Interpretation and review of laboratory results Normal [facility] PCT <0.50 = Low risk of severe sepsis and/or septic shock. PCT >2.00 = High risk of severe sepsis and/or septic shock. [facility] Progress Noteon 06-18-2023 Progress Note Nutrition rescreen completed. Chart reviewed. Patient to be monitored and followed by the diet water technician. NICA Watts Normal [facility] Progress Note OCCUPATIONAL THERAPY [facility] Name/MRN: Ezra Gonzalez ([id number]) Date: 06/18/2023 OT eval and treat order received. Patient chart reviewed. Per Ortho note, Plan for ORIF od R distal humerus. Will hold evaluation till after surgery. Louisa Cespedes, OT Normal [facility] Progress Note PHYSICAL THERAPY [facility] Name/MRN: Ezra Gonzalez ([id number]) Date: 06/18/2023 PT orders received and chart reviewed. Per ortho note, Plan for ORIF R distal humerus. Will hold and attempt following surgery. Maryanne Neumann, PT Normal [facility] ECG 12-LEADon 06-17-2023 ECG 12-LEAD IMPRESSION: Atrial fibrillation Probable left ventricular hypertrophy No previous ECG for comparison Electronically Signed On 06-17-2023 06:39:12 EDT by Thong Francois [facility] ED Nursing Noteon 06-17-2023 ED Nursing Note Patient resting in bed at this time, equal unlabored respirations noted and no acute distress, call león within reach Di Reyna RN 06/17/23 1153 Normal [facility] ED Nursing Note Pt O2 desaturating t o mid 80s after receiving dilaudid IV. Pt placed on 2L NC and immediately back up to 95%. notified Alia Foster RN 06/17/23 1031 [facility] ED Nursing Note Pt upset [...] US IV line. Juanjo Pringle, JAYME 06/16/23 8247 Normal [facility] Laboratory - Chemistry and C hemistry - challengeon 06-17-2023 Glucose [Mass/Vol] 137 mg/dL High 70 - 100 mg/dL [facility] Laboratory - Coagulationon 0 06-17-2023 PT Coag (Bld) [Time] 14.5 s High 9.0 - 12.[address] [facility] No Panel Informationon 06-16 Interpretation and review of laboratory results Abnormal [facility] Performed by: [facility], [address] [place] [address] CLIA ID: [id number] [facility] Atrial fibrillation Probable left ventricular hypertrophy No previous ECG for comparison Electronically Signed On 06-17-2023 06:39:12 EDT by Thong Arvizu D O - 06/17/2023 IMPRESSION: Atrial fibrillation Probable left ventricular hypertrophy No previous ECG for comparison Electronically Signed On 06-17-2023 06:39:12 EDT by Thong Francois [facility] Radiology Study observation (narrative) Trina Oconnell chalo No Panel InformationOrdered By: Thong Francois on 06-17-2023 P [place] 0 degrees [facility] Work Phone: CA Interval 0 ms [facility] [employer] Work Phone: QRS [place] -24 degrees [employer] Phone: QRSD Interval 103 ms [facility] Work Phone: QT Interval 382 ms [facility] Work Phone: QTC Interval 442 ms [employer] Work Phone: T Wave [place] 31 degrees [employer] Work Phone: [employer] Work Phone: Nursing Noteon 06-17-2023 Nursing Note Patient home medication list updated, provider made aware. Normal [facility] PROTHROMBIN TIMEon INR Coag (PPP) [Relative time] 1.4 {INR} High 0.9-1.1 [facility] Comment on above: Result Comment: Reji mmended [...] Infarction Performed By: #### L [id number] #### Single Pointed Operator: ALEXANDRA BUSTAMANTE ([phone]) [facility] ([facility]) [address] [place] [address] PT Coag (PPP) [Time] 14.5 s High 9.0-12.0 [facility] Comment on above: Performed By: #### L [id number] #### Single Pointed Operator: ALEXANDRA BUSTAMANTE ([phone]) [facility] ([facility]) [address] [place] [address] PT Coag (Bld) [Time]on 06-16 INR Coag (PPP) [Relative time] 1.4 {INR} High 0.9 - 1.1 [facility] Comment on above: Recommended Anticoag [...] Interpretation and review of laboratory results Abnormal [facility] Progress Noteon 06-17-2023 Progress Note Due to OR availability, case cancelled for today. Moved to tomorrow, 06/17. Ok for diet today. NPO @MO. Keep splint C/D/I. Evette Viera MD Orthopaedic Surgery, PGY-5 [phone] Normal [facility] Vital signsOrdered By: Neeta Francois on 06-17-2023 Heart rate 80 /min bpm [facility] Work Phone: XR Chest Single viewon 06-16 No acute cardiopulmonary process identified. Other chronic findings as discussed. 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 [facility] Houston Chau MD - 06/17/2023 [...] Electronically Signed Date/Time: 06/17/2023 12:44 AM EDT [facility] Radiology Study observation (narrative) [facility] Chest Single viewOrdered By: Houston Chau on 06-17-2023 [facility] [employer] Work Phone: Absolute lymphocyte countOrd ered By: Lali Pimentel on 03-18-2024 Lymphocytes Auto (Unsp spec) [#/Vol] 3.86 10*3/uL 0.83-4.[address] [facility] Automated lymphocyte count a s percentage of total leukocytesOrdered By: Lali Pimentel on 06-16-2023 Lymphocytes/100 WBC Auto (Unsp spec) 23.0 % 19-[address] [facility] BASIC METABOLIC PANELon 05-29 Anion gap [Moles/Vol] 7 mmol/L Normal 3-13 [facility] Comment on above: Performed By: #### L AB15 ####Single Pointed Operator: ALEXANDRA BUSTAMANTE ([id number])[facility] ([facility])[address] [place] [address] Calcium [Mass/Vol] 8.6 mg/dL Normal 8.4-10.4 [facility] Comment on above: Performed By: #### L AB15 ####Single Pointed Operator: ALEXANDRA BUSTAMANTE ([phone])[facility] ([facility])[address] [place] [address] Chloride [Moles/Vol] 99 mmol/L Normal 98-107 [facility] Comment on above: Performed By: #### L AB15 ####Single Pointed Operator: ALEXANDRA BUSTAMANTE ([phone])[facility] ([facility])[address] [place] [address] CO2 [Moles/Vol] 29 mmol/L Normal 22-30 [facility] Comment on above: Performed By: #### L AB15 ####Single Pointed Operator: ALEXANDRA BUSTAMANTE ([phone])[facility] ([facility])[address] [place] [address] Creatinine [Mass/Vol] 0.79 mg/dL Normal 0.52-1.04 [facility] Comment on above: Performed By: #### L AB15 ####Single Pointed Operator: ALEXANDRA BUSTAMANTE ([phone])[facility])[address] [place] [address] GLOMERULAR FILTRATION RATE ML/MIN/1.73 SQ M.PREDICTED 72.5 mL/min/1.73m*2 Normal >60.0 [facility] Comment on above: Result Comment: Calc ulation based on the Chronic Kidney Disease Epidemiology Collaboration (CKD-EPI) equation refit without adjustment for race Performed By: #### L AB15 ####Single Pointed Operator: ALEXANDRA BUSTAMANTE ([phone])[facility] ([facility])[address] [place] [address] Glucose [Mass/Vol] 186 mg/dL High 70-100 [facility] Comment on above: Performed By: #### L AB15 ####Single Pointed Operator: ALEXANDRA BUSTAMANTE ([phone])[facility] ([facility])[address] [place] [address] Potassium [Moles/Vol] 4.5 mmol/L Normal 3.5-5.1 [facility] Comment on above: Performed By: #### L AB15 ####Single Pointed Operator: ALEXANDRA BUSTAMANTE ([phone])[facility] ([facility])[address] [place] [address] Sodium [Moles/Vol] 136 mmol/L Normal 135-145 [facility] Comment on above: Performed By: #### L AB15 ####Single Pointed Operator: ALEXANDRA BUSTAMANTE ([phone])[facility] ([facility])[address] [place] [address] Urea nitrogen [Mass/Vol] 26 mg/dL High 7-17 [facility] Comment on above: Performed By: #### L AB15 ####Single Pointed Operator: ALEXANDRA BUSTAMANTE ([phone])[facility] ([facility])[address] [place] [address] BLOOD TYPE AND SCREEN GELon 06-16-2023 ABO GROUPING A Normal [facility] Comment on above: Performed By: #### L [id number] ####Single Pointed Operator: ALEXANDRA BUSTAMANTE ([id number])[facility] BLOOD BANK ([facility])[address] [place] [address] RH TYPE IN BLOOD Positive Normal [facility] Comment on above: Performed By: #### L [id number] ####Single Pointed Operator: ALEXANDRA BUSTAMANTE ([phone])[facility] BLOOD BANK ([facility])[address] [place] [address] Basic metabolic 1998 panelon 06-16-2023 Anion gap [Moles/Vol] 7 mmol/L 3 - 13 mmol/L [facility] Calcium [Mass/Vol] 8.6 mg/dL 8.4 - 10. 4 mg/dL [facility] Chloride [Moles/Vol] 99 mmol/L 98 - 10 7 mmol/L [facility] CO2 [Moles/Vol] 29 mmol/L 22 - 30 mmol/L [facility] Creatinine [Mass/Vol] 0.79 mg/dL 0.52 - 1.04 mg/dL [facility] GFR/1.73 sq M.predicted MDRD (S/P/Bld) [Vol rate/Area] 72.5 mL/min/{1.73_m2} - PINF [facility] Comment on above: Calculation based on the Chronic Kidney Disease Epidemiology Collaboration (CKD-EPI) equation refit without adjustment for race Glucose [Mass/Vol] 186 mg/dL High 70 - 100 mg/dL [facility] Interpretation and review of laboratory results Abnormal [facility] Potassium [Moles/Vol] 4.5 mmol/L 3.5 - 5.1 mmol/L [facility] Sodium [Moles/Vol] 136 mmol/L 135 - 145 mmol/L [facility] Urea nitrogen [Mass/Vol] 26 mg/dL High 7 - 17 mg/d L [facility] Basophil percentageOrdered B y: Lali Pimentel on 06-16-2023 Basophils/100 WBC (Bld) 0.4 % 0-1 [facility] Chloride [Moles/Vol] 104 mmol/L 98-107 [facility] Eosinophils/100 WBC (Bld) 1.3 % 0-[address] [facility] Glucose [Mass/Vol] 191 mg/dL 74-106 [facility] Comment on above: Fasting Glucose resu lt greater than or equal to 126 mg/dL suggests DIABETES MELLITUS per A.D.A. criteria. Hemoglobin (Bld) [Mass/Vol] 13.6 g/dL 12.0-15.[address] [facility] Monocytes/100 WBC (Bld) 7.0 % 0-10 [facility] Neutrophils (Bld) [#/Vol] 11.4 10*3/uL 2.0-7.[address] [facility] Neutrophils/100 WBC (Bld) 67.8 % 47-[address] [facility] Potassium [Moles/Vol] 3.4 mmol/L 3.5-5.1 [facility] Sodium [Moles/Vol] 140 mmol/L 136-145 [facility] WBC (Bld) [#/Vol] 16.8 10*3/uL 4.4-11.0 [facility] Blood type and Crossmatch pa ro (Bld)on 06-16-2023 Blood group antibody screen GEL Ql Negative [facility] CBC W Auto Differential pane l (Bld)on 06-16-2023 Basophils (Bld) [#/Vol] 0.0 10*3/uL 0.0 - 0.2 10*3/uL [facility] Basophils/100 WBC (Bld) 0.2 % 0.0 - 2.0 % [facility] Eosinophils (Bld) [#/Vol] 0.0 10*3/uL 0. 0 - 0.5 10*3/uL [facility] Eosinophils/100 WBC (Bld) 0.0 % 0.0 - 6.0 % [facility] Erythrocyte distribution width (RBC) [Ratio] 13.6 % 11.5 - 15.0 % [facility] Hematocrit (Bld) [Volume fraction] 38.9 % 35.0 - 47.0 % [facility] Hemoglobin (Bld) [Mass/Vol] 12.8 g/dL 11.7 - 16.0 g/dL [facility] Immature granulocytes (Bld) [#/Vol] 0.1 10*3/uL High NINF - 0.1 10*3/uL [facility] Immature granulocytes/100 WBC (Bld) 0.6 % 0.0 - 2.0 % [facility] Interpretation and review of laboratory results Abnormal [facility] Lymphocytes (Bld) [#/Vol] 1.1 10*3/uL 1. 0 - 4.3 10*3/uL [facility] Lymphocytes/100 WBC (Bld) 6.5 % Low 15 .0 - 45.0 % [facility] MCH (RBC) [Entitic mass] 29.1 pg 26. 0 - 34.0 pg [facility] MCHC (RBC) [Mass/Vol] 32.9 % 30.5 - 36.0 % [facility] MCV (RBC) [Entitic vol] 88.4 fL 77.0 - 99.0 fL [facility] Monocytes (Bld) [#/Vol] 0.7 10*3/uL 0.0 - 0.9 10*3/uL [facility] Monocytes/100 WBC (Bld) 4.4 % Low 5.0 - 13.0 % [facility] Neutrophils (Bld) [#/Vol] 14.3 10*3/uL High 1. 8 - 7.5 10*3/uL [facility] Neutrophils/100 WBC (Bld) 88.3 % High 38 .0 - 82.0 % [facility] Nucleated RBC/100 WBC (Bld) [Ratio] 0.0 % [facility] [employer] Platelet mean volume (Bld) [Entitic vol] 9.9 fL 9.0 - 12.7 fL [facility] Platelets (Bld) [#/Vol] 357 10*3/uL 140 - 440 10*3/uL [facility] RBC (Bld) [#/Vol] 4.40 10*6/uL 3.80 - 5.2 0 10*6/uL [facility] WBC (Bld) [#/Vol] 16.2 10*3/uL High 3.6 - 10.7 10*3/uL [facility] CBC WITH AUTO DIFFERENTIALon 06-16-2023 Basophils (Bld) [#/Vol] 0.0 10*3/uL Normal 0.0-0.2 [facility] Comment on above: Performed By: #### L [id number] ####Single Pointed Operator: ALEXANDRA BUSTAMANTE ([phone])[address] Basophils/100 WBC (Bld) 0.2 % Normal 0.0-2.0 [facility] Comment on above: Performed By: #### L [id number] ####Single Pointed Operator: ALEXANDRA BUSTAMANTE ([id number])[facility])[address] [place] [address] Eosinophils (Bld) [#/Vol] 0.0 10*3/uL Normal 0.0-0.5 [facility] Comment on above: Performed By: #### L [id number] ####Single Pointed Operator: ALEXANDRA BUSTAMANTE ([phone])[facility])[address] [place] [address] Eosinophils/100 WBC (Bld) 0.0 % Normal 0.0-6.0 [facility] Comment on above: Performed By: #### L [id number] ####Single Pointed Operator: ALEXANDRA BUSTAMANTE ([id number])[facility])[address] [place] [address] Erythrocyte distribution width (RBC) [Ratio] 13.6 % Normal 11.5-15.0 [facility] Comment on above: Performed By: #### L [id number] ####Single Pointed Operator: ALEXANDRA BUSTAMANTE ([id number])[address] Hematocrit (Bld) [Volume fraction] 38.9 % Normal 35.0-47.0 [facility] Comment on above: Performed By: #### L [id number] ####Single Pointed Operator: ALEXANDRA BUSTAMANTE ([id number])[address] Hemoglobin (Bld) [Mass/Vol] 12.8 g/dL Normal 11.7-16.0 [facility] Comment on above: Performed By: #### L [id number] ####Single Pointed Operator: ALEXANDRA BUSTAMANTE ([id number])[facility])[address] [place] [address] IMMATURE GRANS % 0.6 % Normal 0.0-2.0 [facility] Comment on above: Performed By: #### L [id number] ####Single Pointed Operator: ALEXANDRA BUSTAMANTE ([phone])[address] IMMATURE GRANS ABSOLUTE 0.1 10*3/uL High <0.1 [facility] Comment on above: Performed By: #### L [id number] ####Single Pointed Operator: ALEXANDRA BUSTAMANTE ([id number])[facility])[address] [place] [address] Lymphocytes (Bld) [#/Vol] 1.1 10*3/uL Normal 1.0-4.3 [facility] Comment on above: Performed By: #### L [id number] ####Single Pointed Operator: ALEXANDRA BUSTAMANTE ([phone])[facility])[address] [place] [address] Lymphocytes/100 WBC (Bld) 6.5 % Low 15.0-45.0 [facility] Comment on above: Performed By: #### L [id number] ####Single Pointed Operator: ALEXANDRA BUSTAMANTE ([phone])[facility])[address] [place] [address] MCH (RBC) [Entitic mass] 29.1 pg Normal 26.0-34.0 [facility] Comment on above: Performed By: #### L [id number] ####Single Pointed Operator: ALEXANDRA BUSTAMANTE ([id number])[facility])[address] [place] [address] MCHC 32.9 % Normal 30.5-36.0 [facility] Comment on above: Performed By: #### L [id number] ####Single Pointed Operator: ALEXANDRA BUSTAMANTE ([id number])[facility] ([facility])[address] [place] [address] MCV (RBC) [Entitic vol] 88.4 fL Normal 77.0-99.0 [facility] Comment on above: Performed By: #### L [id number] ####Single Pointed Operator: ALEXANDRA BUSTAMANTE ([id number])[facility] ([facility])[address] [place] [address] Monocytes (Bld) [#/Vol] 0.7 10*3/uL Normal 0.0-0.9 [facility] Comment on above: Performed By: #### L [id number] ####Single Pointed Operator: ALEXANDRA BUSTAMANTE ([id number])[facility])[address] [place] [address] Monocytes/100 WBC (Bld) 4.4 % Low 5.0-13.0 [facility] Comment on above: Performed By: #### L [id number] ####Single Pointed Operator: ALEXANDRA BUSTAMANTE ([id number])[facility] ([facility])[address] [place] [address] NEUTROPHILS ABSOLUTE 14.3 10*3/uL High 1.8-7.5 [facility] Comment on above: Performed By: #### L [id number] ####Single Pointed Operator: ALEXANDRA BUSTAMANTE ([id number])[facility] ([facility])[address] [place] [address] Neutrophils/100 WBC (Bld) 88.3 % High 38.0-82.0 [facility] Comment on above: Performed By: #### L [id number] ####Single Pointed Operator: ALEXANDRA BUSTAMANTE ([phone])[facility] ([facility])[address] [place] [address] NRBC 0.0 /100 WBCs Normal 0.0-2.0 [facility] Comment on above: Performed By: #### L [id number] ####Single Pointed Operator: ALEXANDRA BUSTAMANTE ([id number])[facility] ([facility])[address] [place] [address] Platelet mean volume (Bld) [Entitic vol] 9.9 fL Normal 9.0-12.7 [facility] Comment on above: Performed By: #### L [id number] ####Single Pointed Operator: ALEXANDRA BUSTAMANTE ([id number])[facility] ([facility])[address] [place] [address] [place] Platelets (Bld) [#/Vol] 357 10*3/uL Normal 140-440 [facility] Comment on above: Performed By: #### L [id number] ####Single Pointed Operator: ALEXANDRA BUSTAMANTE ([id number])[facility] ([facility])[address] [place] [address] RBC (Bld) [#/Vol] 4.40 10*6/uL Normal 3.80-5.20 [facility] Comment on above: Performed By: #### L [id number] ####Single Pointed Operator: ALEXANDRA BUSTAMANTE ([id number])[facility] ([facility])[address] [place] [address] WBC (Bld) [#/Vol] 16.2 10*3/uL High 3.6-10.7 [facility] Comment on above: Performed By: #### L [id number] ####Single Pointed Operator: ALEXANDRA BUSTAMANTE ([id number])[facility] ([facility])[address] [place] [address] CT ELBOW RIGHT WO IV CONTRAS Ton [...] Injury (Pt arrives via [facility] from [facility] with complaints of right elbow fracture. Patient was sent here for ortho consult. No pain on arrival. Arrives with right arm splinted.)Closed displaced fracture of medial condyle of right humerus, initial encounter Normal [facility] CT Elbow - right WO contrast on 06-16-2023 Impression: Extensively comminuted supracondylar humerus fracture. The fracture has multiple foci of articular extension to the lateral and central aspect of the condyle. Report Dictated on Electronically Signed By: Pastor Francisco MD Electronically Signed Date/Time: 06/16/2023 6:13 PM EDT [facility] Patient Name: EZRA GONZALEZ : 1935 Exam [...] process fracture. Joint effusion. Decreased osseous mineralization. [facility] Pastor Francisco MD - 06/16/2023 Patient [...] Electronically Signed Date/Time: 06/16/2023 6:13 PM EDT [facility] Radiology Study observation (narrative) [facility] chalo Consulton 06-16-2023 Consult Ortho Consult Patient: Ezra Gonzalez Date of : 1935 Acct: [id number] PCP: No primary care provider on file. Date of Admission: 06/16/2023 Date of Service: Pt seen/examined on 06/16/2023 Chief Complaint: right distal humerus fracture History Of Present Illness: This is a 87 y.o. right hand dominant female who presents with a right distal humerus fracture after a fall at home. Patient originally presented to [facility] where she was splinted and transferred to [facility] ED for ortho eval. Patient denies numbness, tingling, or weakness. Denies pain elsewhere and denies head trauma or LOC. 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 Patient has prior ortho surgery history of bilateral TKAs and right shoulder surgery, left carpal tunnel release, all at [facility]. Denies alcohol, tobacco, drug use. [...] RH, LAB (more content not included)... Normal [facility] Determination of erythrocyte mean corpuscular volume (MCV)Ordered By: Lali Pimentel on 06-16-2023 MCV (RBC) [Entitic vol] 90.3 fL 81-99 [facility] ED Provider Noteon ED Provider Note Emergency Department Encounter [facility] EMERGENCY DEPT Patient: Ezra Gonzalez : 1935 [...] for clarification.) Sae Conde MD Acute Care [facility] Sae Conde MD 06/16/23 1626 [facility] ED Provider Note EMERGENCY DEPARTMENT ENCOUNTER Pt Name: Ezra Gonzalez Birthdate 1935 Date of evaluation: 06/16/2023 ED Provider: NADIA Ruiz CHIEF COMPLAINT Chief Complaint Patient presents with Arm Injury Pt arrives via [facility] ambulance from [facility] with complaints of right elbow fracture. [...] injury anywhere else. Patient was evaluated at [facility] emergency department prior to arrival and was noted to have a distal humerus fracture. Patient was transferred to [facility] ED for orthopedic consultation. Patient denies any [...] 4.4 (*) (more content not included)... Normal [facility] Erythrocyte distribution wid th ratioOrdered By: Lali Pimentel on 06-16-2023 Erythrocyte distribution width (RBC) [Ratio] 13.3 % 11.6-14.[address] [facility] Erythrocyte distribution wid th standard deviationOrdered By: Lali Pimentel on 06-16-2023 Erythrocyte distribution width (RBC) [Entitic vol] 43.9 fL 35.1-43.9 [facility] Hematocrit Auto (Bld) [Volum e fraction]Ordered By: Lali Pimentel on 06-16-2023 Hematocrit (Bld) [Volume fraction] 42.6 % 37-[address] [facility] Immature granulocytes/100 WB C Auto (Bld)Ordered By: Lali Pimentel on 06-16-2023 Immature granulocytes/100 WBC (Bld) 0.500 % 0.0-0.[address] [facility] Comment on above: IG% - Immature Granu locytes (promyelocytes, myelocytes and metamyelocytes) > 1% indicates that a LEFT SHIFT is Present. Laboratory - Blood bankon ABO group Nom (Bld) A [facility] D Ag Ql (RBC) Positive [facility] Laboratory - Chemistry and C hemistry - challengeOrdered By: Lali Pimentel on 06-16-2023 CO2 [Moles/Vol] 31.0 mmol/L 21.0-32.[address] [facility] Urea nitrogen/Creatinine [Mass ratio] 20.9 mg/mg 10-[address] [facility] Laboratory - Coagulationon 0 06-16-2023 PT Coag (Bld) [Time] 22.3 s High 9.0 - 12.[address] [facility] Laboratory - CoagulationOrde red By: Lali Pimentel on 06-16-2023 INR Coag (Bld) [Relative time] 2.2 {INR} [facility] PT Coag (PPP) [Time] 24.3 s 11.7-14.9 [facility] Laboratory - Hematology and Cell countsOrdered By: Lali Pimentel on 06-16-2023 MCH (RBC) [Entitic mass] 28.8 pg 27.0-32.[address] [facility] MCHC (RBC) [Mass/Vol] 31.9 g/dL 32-36 [facility] Nucleated RBC/100 WBC (Bld) [Ratio] 0 % 0-[address] [facility] Platelet mean volume (Bld) [Entitic vol] 9.9 fL 6.2-12.[address] [facility] Platelets (Bld) [#/Vol] 414 10*3/uL 150-[address] [facility] No Panel Informationon 06-15 [facility] No Panel InformationOrdered By: Lali Pimentel on 06-16-2023 Estimated Creatinine Clearance Calc 35.56 ml/min [facility] Estimated GFR (MDRD) Amer 57 mL/min >[address] [facility] Comment on above: GFR Calc Estimated GFR (MDRD) Non-Af Amer 47 mL/min >[address] [facility] Comment on above: Non- GFR Calc PROTHROMBIN TIMEon INR Coag (PPP) [Relative time] 2.2 {INR} High 0.9-1.1 [facility] Comment on above: Result Comment: [...] Myocardial Infarction Performed By: #### L [id number] ####Single Pointed Operator: ALEXANDRA BUSTAMANTE ([phone])[facility] ([facility])[address] [place] [address] PT Coag (PPP) [Time] 22.3 s High 9.0-12.0 [facility] Comment on above: Performed By: #### L [id number] ####Single Pointed Operator: ALEXANDRA BUSTAMANTE ([phone])[facility] ([facility])[address] [place] [address] PT Coag (Bld) [Time]on 06-15 INR Coag (PPP) [Relative time] 2.2 {INR} High 0.9 - 1.1 [facility] Comment on above: Recommended Anticoag [...] Interpretation and review of laboratory results Abnormal [facility] RBC Auto (Bld) [#/Vol]Ordere d By: Lali Pimentel on 06-16-2023 RBC (Bld) [#/Vol] 4.72 10*6/uL 4.2-5.4 [facility] Serum or plasma calcium viktoria urement (mass/volume)Ordered By: Lali Pimentel on 06-16-2023 Calcium [Mass/Vol] 8.8 mg/dL 8.5-10.1 [facility] Serum or plasma creatinine m easurement (mass/volume)Ordered By: Lali Pimentel on 06-16-2023 Creatinine [Mass/Vol] 1.15 mg/dL 0.55-1.02 [facility] Comment on above: The validity of the calculated GFR & GFRAA in patients over 70 years has not been determined. Clinical correlation is essential. Serum or plasma urea nitroge n measurement (mass/volume)Ordered By: Lali Pimentel on 06-16-2023 Urea nitrogen [Mass/Vol] 24 mg/dL 10-[address] [facility] Thin prep Papanicolaou smear with manual screeningOrdered By: Lali Pimentel on 06-16-2023 Thin prep Papanicolaou smear with manual screening 5 5- [facility] XR Elbow - right 2 Viewson [...] Electronically Signed Date/Time: 06/16/2023 3:38 PM T [facility] Sae Dudley MD - 06/16/2023 [...] Electronically Signed Date/Time: 06/16/2023 3:38 PM EDT [facility] Radiology Study observation (narrative) Trina Oconnell alth XR Elbow - right 2 ViewsOrde red By: Sae Dudley on 06-16-2023 [facility] Work Phone: XR Elbow - right [...] Electronically Signed Date/Time: 06/16/2023 3:24 PM EDT [facility] 1935 [id number] Exam Date/Time: 06/16/2023 14:30 Procedure: XR ELBOW 3+ VIEWS RIGHT Ordering Provider: TENORIO KASSIDY Reason For Exam: comminuted slightly displaced supracondylar fx of distal humerus with extension to the medial epicondyle - seen at [place] cannot see imaging Examination: Right elbow Clinical Indication: Pain Comparison: None [facility] Pastor Francisco MD - 06/16/2023 Patient Name: EZRA GONZALEZ : 1935 Exam Date/Time: 06/16/2023 14:30 Procedure: XR ELBOW 3+ VIEWS RIGHT Ordering Provider: TENORIO KASSIDY Reason For Exam: comminuted slightly displaced supracondylar fx of distal humerus with extension to the medial epicondyle - seen at [place] cannot see imaging Examination: Right elbow Clinical [...] Electronically Signed Date/Time: 06/16/2023 3:24 PM EDT [facility] Radiology Study observation (narrative) Trina Oconnell alth XR Elbow - right 3 ViewsOrde red By: Pastor Francisco on 06-16-2023 [facility] [employer] Work Phone: XR Shoulder - right 2 [...] Electronically Signed Date/Time: 06/16/2023 3:30 PM EDT [id number] Patient Name: EZRA GONZALEZ : 1935 [...] glenohumeral joint. Acromioclavicular joint appears grossly intact. [facility] Reji Lemus MD - 06/16/2023 [...] Electronically Signed Date/Time: 06/16/2023 3:30 PM EDT [facility] Radiology Study observation (narrative) [facility] alth XR Shoulder - right 2 ViewsO rdered By: Reji Lemus on 06-16-2023 [facility] Work Phone: Capillary blood internationa l normalized ratio (INR)Ordered By: Alexandra Hagen on 05-30-2023 INR Coag (BldC) [Relative time] 1.[address] [facility] Comment on above: Critical Value > 4.0 Whole blood prothrombin time Ordered By: Alexandra Hagen on 05-30-2023 PT Coag (Bld) [Time] 18.0 s 11.7-14.9 [facility] Absolute lymphocyte countOrd ered By: Alexandra Hagen on 05-12-2023 Lymphocytes Auto (Unsp spec) [#/Vol] 1.60 10*3/uL 0.83-4.[address] [facility] Automated lymphocyte count a s percentage of total leukocytesOrdered By: Alexandra Hagen on 05-12-2023 Lymphocytes/100 WBC Auto (Unsp spec) 20.2 % 19-[address] [facility] Basophil percentageOrdered B y: Alexandra Hagen on 05-12-2023 Basophils/100 WBC (Bld) 0.5 % 0-1 [facility] Chloride [Moles/Vol] 109 mmol/L 98-107 [facility] Eosinophils/100 WBC (Bld) 3.7 % 0-[address] [facility] Glucose [Mass/Vol] 206 mg/dL 74-106 [facility] Comment on above: Glucose result great er than or equal to 200 mg/dLsuggests DIABETES MELLITUS per A.D.A. criteria. Hemoglobin (Bld) [Mass/Vol] 13.1 g/dL 12.0-15.[address] [facility] Monocytes/100 WBC (Bld) 7.8 % 0-10 [facility] Neutrophils (Bld) [#/Vol] 5.3 10*3/uL 2.0-7.[address] [facility] Neutrophils/100 WBC (Bld) 67.5 % 47-[address] [facility] Potassium [Moles/Vol] 4.6 mmol/L 3.5-5.1 [facility] Comment on above: Moderate Hemolysis, Result may be falsely increased. Sodium [Moles/Vol] 140 mmol/L 136-145 [facility] WBC (Bld) [#/Vol] 7.9 10*3/uL 4.4-11.0 [facility] Determination of erythrocyte mean corpuscular volume (MCV)Ordered By: Alexandra Hagen on 05-12-2023 MCV (RBC) [Entitic vol] 93.1 fL 81-[address] [facility] Erythrocyte distribution wid th ratioOrdered By: Alexandra Hagen on 05-12-2023 Erythrocyte distribution width (RBC) [Ratio] 13.5 % 11.6-14.[address] [facility] Erythrocyte distribution wid th standard deviationOrdered By: Alexandra Hagen on 05-12-2023 Erythrocyte distribution width (RBC) [Entitic vol] 46.0 fL 35.1-43.9 [facility] Hematocrit Auto (Bld) [Volum e fraction]Ordered By: Alexandra Hagen on 05-12-2023 Hematocrit (Bld) [Volume fraction] 41.8 % 37-[address] [facility] Immature granulocytes/100 WB C Auto (Bld)Ordered By: Alexandra Hagen on 05-12-2023 Immature granulocytes/100 WBC (Bld) 0.300 % 0.0-0.[address] [facility] Comment on above: IG% - Immature Granu locytes (promyelocytes, myelocytes and metamyelocytes) > 1% indicates that a LEFT SHIFT is Present. Laboratory - Chemistry and C hemistry - challengeOrdered By: Alexandra Hagen on 05-12-2023 CO2 [Moles/Vol] 25.0 mmol/L 21.0-32.[address] [facility] Urea nitrogen/Creatinine [Mass ratio] 13.7 mg/mg 10-[address] [facility] Laboratory - Hematology and Cell countsOrdered By: Alexandra Hagen on 05-12-2023 MCH (RBC) [Entitic mass] 29.2 pg 27.0-32.[address] [facility] MCHC (RBC) [Mass/Vol] 31.3 g/dL 32-36 [facility] Nucleated RBC/100 WBC (Bld) [Ratio] 0 % 0-[address] [facility] Platelet mean volume (Bld) [Entitic vol] 10.6 fL 6.2-12.[address] [facility] Platelets (Bld) [#/Vol] 272 10*3/uL 150-[address] [facility] No Panel InformationOrdered By: Alexandra Hagen on 05-12-2023 Estimated GFR (MDRD) Amer 53 mL/min >[address] [facility] Comment on above: GFR Calc Estimated GFR (MDRD) Non-Af Amer 43 mL/min >[address] [facility] Comment on above: Non- GFR Calc RBC Auto (Bld) [#/Vol]Ordere d By: Alexandra Hagen on 05-12-2023 RBC (Bld) [#/Vol] 4.49 10*6/uL 4.2-5.4 [facility] Serum or plasma calcium viktoria urement (mass/volume)Ordered By: Alexandra Hagen on 05-12-2023 Calcium [Mass/Vol] 8.5 mg/dL 8.5-10.1 [facility] Serum or plasma creatinine m easurement (mass/volume)Ordered By: Alexandra Hagen on 05-12-2023 Creatinine [Mass/Vol] 1.24 mg/dL 0.55-1.02 [facility] Comment on above: The validity of the calculated GFR & GFRAA in patients over 70 years has not been determined. Clinical correlation is essential. Serum or plasma urea nitroge n measurement (mass/volume)Ordered By: Alexandra Hagen on 05-12-2023 Urea nitrogen [Mass/Vol] 17 mg/dL -[address] [facility] Thin prep Papanicolaou smear with manual screeningOrdered By: Alexandra Hagen on 05-12-2023 Thin prep Papanicolaou smear with manual screening 6 -[address] [facility] Whole blood hemoglobin A1c/t otal hemoglobin ratio (mass fraction)Ordered By: Alexandra Hagen on 05-12-2023 HbA1c (Bld) [Mass fraction] 6.8 % 3.8-5.[address] [facility] Comment on above: Normal < 5.7 % Predi abetic 5.7 - 6.4 % Diabetic >or= 6.5 % Please note range changes. Capillary blood internationa l normalized ratio (INR)Ordered By: Alexandra Hagen on 05-01-2023 INR Coag (BldC) [Relative time] 2.[address] [facility] Comment on above: Critical Value > 4.0 Whole blood prothrombin time Ordered By: Alexandra Hagen on 05-01-2023 PT Coag (Bld) [Time] 21.0 s 11.7-14.9 [facility] International normalized rat io (INR) calculationOrdered By: Alexandra Hagen on 04-17-2023 INR Coag (PPP) [Relative time] 1.8 {INR} [facility] Laboratory - CoagulationOrde red By: Alexandra Hagen on 04-17-2023 PT Coag (PPP) [Time] 21.0 s 11.7-14.9 [facility] Laboratory - CoagulationOrde red By: Alexandra Hagen on 03-20-2023 INR Coag (Bld) [Relative time] 2.4 {INR} [facility] Comment on above: Critical Value > 4.0 Whole blood prothrombin time Ordered By: Alexandra Hagen on 03-20-2023 PT Coag (Bld) [Time] 25.7 s 11.7-14.9 [facility] Basophil percentageOrdered B y: Alexandra Hagen on 02-21-2023 Bilirubin [Mass/Vol] 0.60 mg/dL 0.20-1.00 [facility] Comment on above: For patients on eltr ombopag therapy, use of Dimension [place] TBIL is not recommended. Chloride [Moles/Vol] 107 mmol/L 98-107 [facility] Cholesterol [Mass/Vol] 127 mg/dL <200 [facility] Comment on above: <200 mg/dL Desirable 200-240 mg/dL Borderline >240 mg/dL High Risk Glucose [Mass/Vol] 134 mg/dL 74-106 [facility] Comment on above: Fasting Glucose resu lt greater than or equal to 126 mg/dL suggests DIABETES MELLITUS per A.D.A. criteria. Potassium [Moles/Vol] 4.2 mmol/L 3.5-5.1 [facility] Protein [Mass/Vol] 6.2 g/dL 6.4-8.2 [facility] Sodium [Moles/Vol] 138 mmol/L 136-145 [facility] Triglyceride [Mass/Vol] 102 mg/dL <[address] [facility] Comment on above: The drugs N-Acetylcy steine and Metamizole may falsely depress this assay.Serum Triglycerides Reference Interval Normal <150 mg/dL Borderline high 150 - 199 mg/dL High 200 - 499 mg/dL Very High > or = 500 mg/dL WBC (Bld) [#/Vol] 7.7 10*3/uL 4.4-11.0 [facility] Blood erythrocytes count (nu mber/volume)Ordered By: Alexandra Hagen on 02-21-2023 RBC (Bld) [#/Vol] 4.19 10*6/uL 4.2-5.4 [facility] Blood hemoglobin measurement (mass/volume)Ordered By: Alexandra Hagen on 02-21-2023 Hemoglobin (Bld) [Mass/Vol] 12.5 g/dL 12.0-15.[address] [facility] Blood platelet mean volumeOr dered By: Alexandra Hagen on 02-21-2023 Platelet mean volume (Bld) [Entitic vol] 10.8 fL 6.2-12.[address] [facility] Determination of erythrocyte mean corpuscular volume (MCV)Ordered By: Alexandra Hagen on 02-21-2023 MCV (RBC) [Entitic vol] 91.2 fL 81-99 [facility] Hematocrit Auto (Bld) [Volum e fraction]Ordered By: Alexandra Hagen on 02-21-2023 Hematocrit (Bld) [Volume fraction] 38.2 % 37-[address] [facility] INR in Blood by Coagulation assayOrdered By: Alexandra Hagen on 02-21-2023 INR Coag (Bld) [Relative time] 2.3 {INR} [facility] Laboratory - Chemistry and C hemistry - challengeOrdered By: Alexandra Hagen on 02-21-2023 ALP [Catalytic activity/Vol] 84 U/L 45-[address] [facility] ALT [Catalytic activity/Vol] 11 U/L 13-[address] [facility] CO2 [Moles/Vol] 27.0 mmol/L 21.0-32.[address] [facility] Globulin (S) [Mass/Vol] 3.3 g/dL 2.2-4.2 [facility] Urea nitrogen/Creatinine [Mass ratio] 14.0 mg/mg 10-[address] [facility] Laboratory - CoagulationOrde red By: Alexandra Hagen on 02-21-2023 PT Coag (PPP) [Time] 25.3 s 11.7-14.9 [facility] Laboratory - Hematology and Cell countsOrdered By: Alexandra Hagen on 02-21-2023 Erythrocyte distribution width (RBC) [Entitic vol] 44.8 fL 35.1-43.9 [facility] Erythrocyte distribution width (RBC) [Ratio] 13.4 % 11.6-14.[address] [facility] MCH (RBC) [Entitic mass] 29.8 pg 27.0-32.[address] [facility] MCHC Auto (RBC) [Mass/Vol]Or dered By: Alexandra Hagen on 02-21-2023 MCHC (RBC) [Mass/Vol] 32.7 g/dL 32-36 [facility] No Panel InformationOrdered By: Alexandra Hagen on 02-21-2023 Estimated GFR (MDRD) Amer 68 mL/min >[address] [facility] Comment on above: GFR Calc Estimated GFR (MDRD) Non-Af Amer 56 mL/min >[address] [facility] Comment on above: Non- GFR Calc Platelets bldOrdered By: Alexandra Hagen on 02-21-2023 Platelets (Bld) [#/Vol] 297 10*3/uL 150-[address] [facility] Serum or plasma albumin viktoria urement (mass/volume)Ordered By: Alexandra Hagen on 02-21-2023 Albumin [Mass/Vol] 2.9 g/dL 3.2-5.0 [facility] Serum or plasma albumin/glob ulin mass ratioOrdered By: Alexandra Hagen on 02-21-2023 Albumin/Globulin [Mass ratio] 0.9 {ratio} 0.9-2.[address] [facility] Serum or plasma calcium viktoria urement (mass/volume)Ordered By: Alexandra Hagen on 02-21-2023 Calcium [Mass/Vol] 8.4 mg/dL 8.5-10.1 [facility] Serum or plasma cholesterol in HDL measurement (mass/volume)Ordered By: Alexandra Hagen on 02-21-2023 Cholesterol in HDL [Mass/Vol] 50 mg/dL >[address] [facility] Comment on above: The drugs N-Acetylcy steine and Metamizole may falsely depress this assay. Reference Range HDL <40 mg/dL Low HDL Cholesterol HDL >or= 60 mg/dL High HDL Cholesterol Serum or plasma cholesterol in VLDL measurement (mass/volume)Ordered By: Alexandra Hagen on 02-21-2023 Cholesterol in VLDL [Mass/Vol] 20 mg/dL 5-[address] [facility] Serum or plasma creatinine m easurement (mass/volume)Ordered By: Alexandra Hagen on 02-21-2023 Creatinine [Mass/Vol] 1.00 mg/dL 0.55-1.02 [facility] Comment on above: The validity of the calculated GFR & GFRAA in patients over 70 years has not been determined. Clinical correlation is essential. Serum or plasma low density lipoprotein (LDL) cholesterol measurement (mass/volume)Ordered By: Alexandra Hagen on 02-21-2023 Cholesterol in LDL [Mass/Vol] 57 mg/dL 0-[address] [facility] Serum or plasma urea nitroge n measurement (mass/volume)Ordered By: Alexandra Hagen on 02-21-2023 Urea nitrogen [Mass/Vol] 14 mg/dL 7-[address] [facility] Thin prep Papanicolaou smear with manual screeningOrdered By: Alexandra Hagen on 02-21-2023 Thin prep Papanicolaou smear with manual screening 16 U/L 15-[address] [facility] Thin prep Papanicolaou smear with manual screening 4 5-[address] [facility] Albumin Elph [Mass/Vol]Order ed By: Anant Juarez on 01-20-2023 Albumin [Mass/Vol] 3.4 g/dL 2.9-4.4 [facility] Basophil percentageOrdered B y: Anant Juarez on 01-20-2023 Basophil percentage Comment . [facility] Comment on above: No monoclonality det ected.Performed at: [employer] [address] [id number] Director: Master Vee PhD, Phone: [phone] Interpretation of serum or p lasma protein pattern by immunofixation (narrative resultOrdered By: Anant Juarez on 01-20-2023 Protein Fractions Immunofixation Manuel [Interp] See comment [facility] Comment on above: Result: Not Observed No Panel InformationOrdered By: Anant Juarez on 01-20-2023 Addendum Document Comment . [facility] Comment on above: Protein electrophore sis scan will follow via computer,mail, or loom inspector delivery. Serum [id number] measu rement by electrophoresisOrdered By: Anant Juarez on 01-20-2023 Alpha 1 globulin Elph [Mass/Vol] 0.3 g/dL 0.0-0.[address] [facility] Alpha 1 globulin Elph [Mass/Vol] 0.9 g/dL 0.4-1.[address] [facility] Serum globulin measurement ( mass/volume)Ordered By: Anant Juarez on 01-20-2023 Globulin (S) [Mass/Vol] 3.0 g/dL 2.2-3.[address] [facility] Serum or plasma IgA measurem ent (mass/volume)Ordered By: Anant Juarez on 01-20-2023 IgA [Mass/Vol] 158 mg/dL 64-[address] [facility] Serum or plasma IgG measurem ent (mass/volume)Ordered By: Anant Juarez on 01-20-2023 IgG [Mass/Vol] 847 mg/dL [phone] [facility] Serum or plasma IgM measurem ent (mass/volume)Ordered By: Anant Juarez on 01-20-2023 IgM [Mass/Vol] 48 mg/dL 26-[address] [facility] Serum or plasma beta globuli n measurement by electrophoresis (mass/volume)Ordered By: Anant Juarez on 01-20-2023 Beta globulin Elph [Mass/Vol] 1.0 g/dL 0.7-1.[address] [facility] Serum or plasma gamma globul in measurement by electrophoresis (mass/volume)Ordered By: Anant Juarez on 01-20-2023 Gamma globulin Elph [Mass/Vol] 0.7 g/dL 0.4-1.[address] [facility] Serum or plasma immunoelectr ophoresis interpretation (nominal result)Ordered By: Anant Juarez on 01-20-2023 Interpretation IEP [Interp] Comment . [facility] Comment on above: No monoclonality det ected. Thin prep Papanicolaou smear with manual screeningOrdered By: Anant Juarez on 01-20-2023 Thin prep Papanicolaou smear with manual screening 1.2 0.7-1.[address] [facility] Total protein bloodOrdered B y: Anant Juarez on 01-20-2023 Protein [Mass/Vol] 6.4 g/dL 6.0-8.5 [facility] Laboratory - CoagulationOrde red By: Alexandra Hagen on 01-16-2023 INR Coag (Bld) [Relative time] 2.2 {INR} [facility] Comment on above: Critical Value > 4.0 Whole blood prothrombin time Ordered By: Alexandra Hagen on 01-16-2023 PT Coag (Bld) [Time] 24.2 s 11.7-14.9 [facility] Absolute lymphocyte countOrd ered By: Lynn Horn on 12-28-2022 Lymphocytes Auto (Unsp spec) [#/Vol] 1.57 10*3/uL 0.83-4.[address] [facility] Basophil percentageOrdered B y: Lynn Horn on 12-28-2022 Basophils/100 WBC (Bld) 0.6 % 0-1 [facility] Chloride [Moles/Vol] 108 mmol/L 98-107 [facility] Eosinophils/100 WBC (Bld) 3.0 % 0-[address] [facility] Glucose [Mass/Vol] 117 mg/dL 74-106 [facility] Comment on above: Fasting Glucose resu lt from 100 to 125 mg/dL suggests IMPAIRED HOMEOSTASIS per A.D.A. criteria. Neutrophils (Bld) [#/Vol] 5.3 10*3/uL 2.0-7.[address] [facility] Neutrophils/100 WBC (Bld) 66.8 % 47-[address] [facility] Potassium [Moles/Vol] 3.9 mmol/L 3.5-5.1 [facility] Sodium [Moles/Vol] 138 mmol/L 136-145 [facility] WBC (Bld) [#/Vol] 7.9 10*3/uL 4.4-11.0 [facility] Blood erythrocytes count (nu mber/volume)Ordered By: Lynn Horn on 12-28-2022 RBC (Bld) [#/Vol] 4.32 10*6/uL 4.2-5.4 [facility] Blood hemoglobin measurement (mass/volume)Ordered By: Lynn Horn on 12-28-2022 Hemoglobin (Bld) [Mass/Vol] 12.8 g/dL 12.0-15.[address] [facility] Blood lymphocytes/100 leukoc ytesOrdered By: Lynn Horn on 12-28-2022 Lymphocytes/100 WBC (Bld) 19.8 % 19-[address] [facility] Blood monocytes/100 leukocyt esOrdered By: Lynn Horn on 12-28-2022 Monocytes/100 WBC (Bld) 9.5 % 0-[address] [facility] Blood platelet mean volumeOr dered By: Lynn Horn on 12-28-2022 Platelet mean volume (Bld) [Entitic vol] 10.6 fL 6.2-12.[address] [facility] Determination of erythrocyte mean corpuscular volume (MCV)Ordered By: Lynn Horn on 12-28-2022 MCV (RBC) [Entitic vol] 91.0 fL 81-99 [facility] Hematocrit Auto (Bld) [Volum e fraction]Ordered By: Lynn Horn on 12-28-2022 Hematocrit (Bld) [Volume fraction] 39.3 % 37-[address] [facility] INR in Blood by Coagulation assayOrdered By: Lynn Horn on 12-28-2022 INR Coag (Bld) [Relative time] 2.1 {INR} [facility] Laboratory - Chemistry and C hemistry - challengeOrdered By: Lynn Horn on 12-28-2022 CO2 [Moles/Vol] 27.0 mmol/L 21.0-32.[address] [facility] Urea nitrogen/Creatinine [Mass ratio] 15.7 mg/mg 10-[address] [facility] Laboratory - CoagulationOrde red By: Lynn Horn on 12-28-2022 PT Coag (PPP) [Time] 23.8 s 11.7-14.9 [facility] Laboratory - Hematology and Cell countsOrdered By: Lynn Horn on 12-28-2022 Erythrocyte distribution width (RBC) [Entitic vol] 43.0 fL 35.1-43.9 [facility] Erythrocyte distribution width (RBC) [Ratio] 12.9 % 11.6-14.[address] [facility] Immature granulocytes/100 WBC (Bld) 0.300 % 0.0-0.[address] [facility] Comment on above: IG% - Immature Granu locytes (promyelocytes, myelocytes and metamyelocytes) > 1% indicates that a LEFT SHIFT is Present. MCH (RBC) [Entitic mass] 29.6 pg 27.0-32.[address] [facility] Nucleated RBC/100 WBC (Bld) [Ratio] 0 % 0-[address] [facility] MCHC Auto (RBC) [Mass/Vol]Or dered By: Lynn Horn on 12-28-2022 MCHC (RBC) [Mass/Vol] 32.6 g/dL 32-36 [facility] No Panel InformationOrdered By: Lynn Horn on 12-28-2022 Estimated Creatinine Clearance Calc 36.84 ml/min [facility] Estimated GFR (MDRD) Amer 77 mL/min >[address] [facility] Comment on above: GFR Calc Estimated GFR (MDRD) Non-Af Amer 64 mL/min >[address] [facility] Comment on above: Non- GFR Calc Platelets bldOrdered By: Lois Horn on 12-28-2022 Platelets (Bld) [#/Vol] 272 10*3/uL 150-[address] [facility] Serum or plasma calcium viktoria urement (mass/volume)Ordered By: Lynn Horn on 12-28-2022 Calcium [Mass/Vol] 8.3 mg/dL 8.5-10.1 [facility] Serum or plasma creatinine m easurement (mass/volume)Ordered By: Lynn Horn on 12-28-2022 Creatinine [Mass/Vol] 0.89 mg/dL 0.55-1.02 [facility] Comment on above: The validity of the calculated GFR & GFRAA in patients over 70 years has not been determined. Clinical correlation is essential. Serum or plasma urea nitroge n measurement (mass/volume)Ordered By: Lynn Horn on 12-28-2022 Urea nitrogen [Mass/Vol] 14 mg/dL 7-[address] [facility] Thin prep Papanicolaou smear with manual screeningOrdered By: Lynn Horn on 12-28-2022 Thin prep Papanicolaou smear with manual screening 3 5-[address] [facility] Laboratory - CoagulationOrde red By: Lali Pimentel on 12-27-2022 aPTT Coag (Bld) [Time] 48.2 s 24.1-36.2 [facility] No Panel InformationOrdered By: Lali Pimentel on 12-27-2022 Troponin I High Sensitivity 10 pg/mL 3.0-54.[address] [facility] Comment on above: Please Note: New Evon t Units and Gender Specific Reference Ranges. For more information see Policy Stat Procedure [place] High Sensitivity Troponin (TNIH) and attachments. Laboratory - CoagulationOrde red By: Alexandra Hagen on 12-19-2022 INR Coag (Bld) [Relative time] 2.8 {INR} [facility] Comment on above: Critical Value > 4.0 Whole blood prothrombin time Ordered By: Alexandra Hagen on 12-19-2022 PT Coag (Bld) [Time] 29.7 s 11.7-14.9 [facility] Absolute lymphocyte countOrd ered By: Alexandra Hagen on 12-09-2022 Lymphocytes Auto (Unsp spec) [#/Vol] 1.65 10*3/uL 0.83-4.[address] [facility] Basophil percentageOrdered B y: Alexandra Hagen on 12-09-2022 Basophils/100 WBC (Bld) 0.4 % 0-1 [facility] Chloride [Moles/Vol] 107 mmol/L 98-107 [facility] Eosinophils/100 WBC (Bld) 3.6 % 0-[address] [facility] Glucose [Mass/Vol] 125 mg/dL 74-106 [facility] Comment on above: Fasting Glucose resu lt from 100 to 125 mg/dL suggests IMPAIRED HOMEOSTASIS per A.D.A. criteria. Neutrophils (Bld) [#/Vol] 4.3 10*3/uL 2.0-7.[address] [facility] Neutrophils/100 WBC (Bld) 61.6 % 47-[address] [facility] Potassium [Moles/Vol] 4.8 mmol/L 3.5-5.1 [facility] Sodium [Moles/Vol] 138 mmol/L 136-145 [facility] WBC (Bld) [#/Vol] 7.0 10*3/uL 4.4-11.0 [facility] Blood erythrocytes count (nu mber/volume)Ordered By: Alexandra Hagen on 12-09-2022 RBC (Bld) [#/Vol] 4.30 10*6/uL 4.2-5.4 [facility] Blood hemoglobin measurement (mass/volume)Ordered By: Alexandra Hagen on 12-09-2022 Hemoglobin (Bld) [Mass/Vol] 13.1 g/dL 12.0-15.[address] [facility] Blood lymphocytes/100 leukoc ytesOrdered By: Alexandra Hagen on 12-09-2022 Lymphocytes/100 WBC (Bld) 23.7 % 19-[address] [facility] Blood monocytes/100 leukocyt esOrdered By: Alexandra Hagen on 12-09-2022 Monocytes/100 WBC (Bld) 10.4 % 0-10 [facility] Blood platelet mean volumeOr dered By: Alexandra Hagen on 12-09-2022 Platelet mean volume (Bld) [Entitic vol] 10.7 fL 6.2-12.[address] [facility] Determination of erythrocyte mean corpuscular volume (MCV)Ordered By: Alexandra Hagen on 12-09-2022 MCV (RBC) [Entitic vol] 92.3 fL 81-[address] [facility] Hematocrit Auto (Bld) [Volum e fraction]Ordered By: Alexandra Hagen on 12-09-2022 Hematocrit (Bld) [Volume fraction] 39.7 % 37-[address] [facility] Laboratory - Chemistry and C hemistry - challengeOrdered By: Alexandra Hagen on 12-09-2022 CO2 [Moles/Vol] 26.0 mmol/L 21.0-32.[address] [facility] Urea nitrogen/Creatinine [Mass ratio] 14.4 mg/mg 10-[address] [facility] Laboratory - Hematology and Cell countsOrdered By: Alexandra Hagen on 12-09-2022 Erythrocyte distribution width (RBC) [Entitic vol] 44.0 fL 35.1-43.9 [facility] Erythrocyte distribution width (RBC) [Ratio] 13.1 % 11.6-14.[address] [facility] Immature granulocytes/100 WBC (Bld) 0.300 % 0.0-0.[address] [facility] Comment on above: IG% - Immature Granu locytes (promyelocytes, myelocytes and metamyelocytes) > 1% indicates that a LEFT SHIFT is Present. MCH (RBC) [Entitic mass] 30.5 pg 27.0-32.[address] [facility] Nucleated RBC/100 WBC (Bld) [Ratio] 0 % 0-[address] [facility] MCHC Auto (RBC) [Mass/Vol]Or dered By: Alexandra Hagen on 12-09-2022 MCHC (RBC) [Mass/Vol] 33.0 g/dL 32-36 [facility] No Panel InformationOrdered By: Alexandra Hagen on 12-09-2022 Estimated GFR (MDRD) Amer 60 mL/min >[address] [facility] Comment on above: GFR Calc Estimated GFR (MDRD) Non-Af Amer 49 mL/min >[address] [facility] Comment on above: Non- GFR Calc Platelets bldOrdered By: Alexandra Hagen on 12-09-2022 Platelets (Bld) [#/Vol] 293 10*3/uL 150-[address] [facility] Serum or plasma calcium viktoria urement (mass/volume)Ordered By: Alexandra Hagen on 12-09-2022 Calcium [Mass/Vol] 8.7 mg/dL 8.5-10.1 [facility] Serum or plasma creatinine m easurement (mass/volume)Ordered By: Alexandra Hagen on 12-09-2022 Creatinine [Mass/Vol] 1.11 mg/dL 0.55-1.02 [facility] Comment on above: The validity of the calculated GFR & GFRAA in patients over 70 years has not been determined. Clinical correlation is essential. Serum or plasma urea nitroge n measurement (mass/volume)Ordered By: Alexandra Hagen on 12-09-2022 Urea nitrogen [Mass/Vol] 16 mg/dL 7-[address] [facility] Thin prep Papanicolaou smear with manual screeningOrdered By: Alexandra Hagen on 12-09-2022 Thin prep Papanicolaou smear with manual screening 5 5-[address] [facility] Whole blood hemoglobin A1c/t otal hemoglobin ratio (mass fraction)Ordered By: Alexandra Hagen on 12-09-2022 HbA1c (Bld) [Mass fraction] 6.7 % 3.8-5.[address] [facility] Comment on above: Normal < 5.7 % Predi abetic 5.7 - 6.4 % Diabetic >or= 6.5 % Please note range changes. Basophil percentageOrdered B y: Alexandra aHgen on 11-20-2022 Bilirubin [Mass/Vol] 0.50 mg/dL 0.20-1.00 [facility] Comment on above: For patients on eltr ombopag therapy, use of Dimension [place] TBIL is not recommended. Chloride [Moles/Vol] 105 mmol/L 98-107 [facility] Cholesterol [Mass/Vol] 167 mg/dL <200 [facility] Comment on above: <200 mg/dL Desirable 200-240 mg/dL Borderline >240 mg/dL High Risk Glucose [Mass/Vol] 153 mg/dL 74-106 [facility] Comment on above: Fasting Glucose resu lt greater than or equal to 126 mg/dL suggests DIABETES MELLITUS per A.D.A. criteria. Potassium [Moles/Vol] 4.2 mmol/L 3.5-5.1 [facility] Protein [Mass/Vol] 6.7 g/dL 6.4-8.2 [facility] Sodium [Moles/Vol] 138 mmol/L 136-145 [facility] Triglyceride [Mass/Vol] 120 mg/dL <199 [facility] Comment on above: The drugs N-Acetylcy steine and Metamizole may falsely depress this assay.Serum Triglycerides Reference Interval Normal <150 mg/dL Borderline high 150 - 199 mg/dL High 200 - 499 mg/dL Very High > or = 500 mg/dL WBC (Bld) [#/Vol] 7.4 10*3/uL 4.4-11.0 [facility] Blood erythrocytes count (nu mber/volume)Ordered By: Alexandra Hagen on 11-20-2022 RBC (Bld) [#/Vol] 4.37 10*6/uL 4.2-5.4 [facility] Blood hemoglobin measurement (mass/volume)Ordered By: Alexandra Hagen on 11-20-2022 Hemoglobin (Bld) [Mass/Vol] 13.1 g/dL 12.0-15.[address] [facility] Blood platelet mean volumeOr dered By: Alexandra Hagen on 11-20-2022 Platelet mean volume (Bld) [Entitic vol] 10.8 fL 6.2-12.[address] [facility] Determination of erythrocyte mean corpuscular volume (MCV)Ordered By: Alexandra Hagen on 11-20-2022 MCV (RBC) [Entitic vol] 91.5 fL 81-[address] [facility] Hematocrit Auto (Bld) [Volum e fraction]Ordered By: Alexandra Hagen on 11-20-2022 Hematocrit (Bld) [Volume fraction] 40.0 % 37-[address] [facility] INR in Blood by Coagulation assayOrdered By: Alexandra Hagen on 11-20-2022 INR Coag (Bld) [Relative time] 2.0 {INR} [facility] Laboratory - Chemistry and C hemistry - challengeOrdered By: Alexandra Hagen on 11-20-2022 ALP [Catalytic activity/Vol] 72 U/L 45-[address] [facility] ALT [Catalytic activity/Vol] 13 U/L 13-[address] [facility] CO2 [Moles/Vol] 30.0 mmol/L 21.0-32.[address] [facility] Globulin (S) [Mass/Vol] 3.6 g/dL 2.2-4.[address] [facility] Urea nitrogen/Creatinine [Mass ratio] 12.8 mg/mg 10-[address] [facility] Laboratory - CoagulationOrde red By: Alexandra Hagen on 11-20-2022 PT Coag (PPP) [Time] 22.6 s 11.7-14.9 [facility] Laboratory - Hematology and Cell countsOrdered By: Alexandra Hagen on 11-20-2022 Erythrocyte distribution width (RBC) [Entitic vol] 43.4 fL 35.1-43.9 [facility] Erythrocyte distribution width (RBC) [Ratio] 12.9 % 11.6-14.[address] [facility] MCH (RBC) [Entitic mass] 30.0 pg 27.0-32.[address] [facility] MCHC Auto (RBC) [Mass/Vol]Or dered By: Alexandra Hagen on 11-20-2022 MCHC (RBC) [Mass/Vol] 32.8 g/dL 32-36 [facility] No Panel InformationOrdered By: Alexandra Hagen on 11-20-2022 Estimated GFR (MDRD) Amer 61 mL/min >[address] [facility] Comment on above: GFR Calc Estimated GFR (MDRD) Non-Af Amer 50 mL/min >[address] [facility] Comment on above: Non- GFR Calc Platelets bldOrdered By: Alexandra Hagen on 11-20-2022 Platelets (Bld) [#/Vol] 310 10*3/uL 150-[address] [facility] Serum or plasma albumin viktoria urement (mass/volume)Ordered By: Alexandra Hagen on 11-20-2022 Albumin [Mass/Vol] 3.1 g/dL 3.2-5.0 [facility] Serum or plasma albumin/glob ulin mass ratioOrdered By: Alexandra Hagen on 11-20-2022 Albumin/Globulin [Mass ratio] 0.9 {ratio} 0.9-2.[address] [facility] Serum or plasma calcium viktoria urement (mass/volume)Ordered By: Alexandra Hagen on 11-20-2022 Calcium [Mass/Vol] 8.6 mg/dL 8.5-10.1 [facility] Serum or plasma cholesterol in HDL measurement (mass/volume)Ordered By: Alexandra Hagen on 11-20-2022 Cholesterol in HDL [Mass/Vol] 55 mg/dL >[address] [facility] Comment on above: The drugs N-Acetylcy steine and Metamizole may falsely depress this assay. Reference Range HDL <40 mg/dL Low HDL Cholesterol HDL >or= 60 mg/dL High HDL Cholesterol Serum or plasma cholesterol in VLDL measurement (mass/volume)Ordered By: Alexandra Hagen on 11-20-2022 Cholesterol in VLDL [Mass/Vol] 24 mg/dL 5-[address] [facility] Serum or plasma creatinine m easurement (mass/volume)Ordered By: Alexandra Hagen on 11-20-2022 Creatinine [Mass/Vol] 1.09 mg/dL 0.55-1.02 [facility] Comment on above: The validity of the calculated GFR & GFRAA in patients over 70 years has not been determined. Clinical correlation is essential. Serum or plasma low density lipoprotein (LDL) cholesterol measurement (mass/volume)Ordered By: Alexandra Hagen on 11-20-2022 Cholesterol in LDL [Mass/Vol] 88 mg/dL 0-130 [facility] [facility] Serum or plasma urea nitroge n measurement (mass/volume)Ordered By: Alexandra Hagen on 11-20-2022 Urea nitrogen [Mass/Vol] 14 mg/dL 7-[address] [facility] Thin prep Papanicolaou smear with manual screeningOrdered By: Alexandra Hagen on 11-20-2022 Thin prep Papanicolaou smear with manual screening 15 U/L 15-[address] [facility] Thin prep Papanicolaou smear with manual screening 3 5-[address] [facility] Absolute lymphocyte countOrd ered By: Mo Corea on 11-18-2022 Lymphocytes Auto (Unsp spec) [#/Vol] 1.95 10*3/uL 0.83-4.[address] [facility] Basophil percentageOrdered B y: Mo Corea on 11-18-2022 Basophil percentage 0-5 SEEN /hpf 0-5 [facility] Basophils/100 WBC (Bld) 0.4 % 0-1 [facility] Bilirubin [Mass/Vol] 0.40 mg/dL 0.20-1.00 [facility] Comment on above: For patients on eltr ombopag therapy, use of Dimension [place] TBIL is not recommended. Chloride [Moles/Vol] 108 mmol/L 98-107 [facility] Eosinophils/100 WBC (Bld) 3.4 % 0-[address] [facility] Glucose [Mass/Vol] 126 mg/dL 74-106 [facility] Comment on above: Fasting Glucose resu lt greater than or equal to 126 mg/dL suggests DIABETES MELLITUS per A.D.A. criteria. Neutrophils (Bld) [#/Vol] 4.4 10*3/uL 2.0-7.[address] [facility] Neutrophils/100 WBC (Bld) 59.9 % 47-[address] [facility] Potassium [Moles/Vol] 3.9 mmol/L 3.5-5.1 [facility] Protein [Mass/Vol] 6.9 g/dL 6.4-8.2 [facility] Sodium [Moles/Vol] 140 mmol/L 136-145 [facility] WBC (Bld) [#/Vol] 7.3 10*3/uL 4.4-11.0 [facility] Bilirubin Test strip Ql (U)O rdered By: Mo Corea on 11-18-2022 Bilirubin Ql (U) Negative Negative [facility] Blood erythrocytes count (nu mber/volume)Ordered By: Mo Corea on 11-18-2022 RBC (Bld) [#/Vol] 4.63 10*6/uL 4.2-5.4 [facility] Blood hemoglobin measurement (mass/volume)Ordered By: Mo Corea on 11-18-2022 Hemoglobin (Bld) [Mass/Vol] 13.9 g/dL 12.0-15.[address] [facility] Blood lymphocytes/100 leukoc ytesOrdered By: Mo Corea on 11-18-2022 Lymphocytes/100 WBC (Bld) 26.8 % 19-[address] [facility] Blood monocytes/100 leukocyt esOrdered By: Mo Corea on 11-18-2022 Monocytes/100 WBC (Bld) 9.2 % 0-10 [facility] Blood platelet mean volumeOr dered By: Mo Corea on 11-18-2022 Platelet mean volume (Bld) [Entitic vol] 10.5 fL 6.2-12.[address] [facility] Determination of erythrocyte mean corpuscular volume (MCV)Ordered By: Mo Corea on 11-18-2022 MCV (RBC) [Entitic vol] 92.4 fL 81-99 [facility] Hematocrit Auto (Bld) [Volum e fraction]Ordered By: Mo Corea on 11-18-2022 Hematocrit (Bld) [Volume fraction] 42.8 % 37-[address] [facility] INR in Blood by Coagulation assayOrdered By: Mo Corea on 11-18-2022 INR Coag (Bld) [Relative time] 2.0 {INR} [facility] Ketones Test strip Ql (U)Ord ered By: Mo Corea on 11-18-2022 Ketones Ql (U) Negative Negative [facility] Laboratory - Chemistry and C hemistry - challengeOrdered By: Mo Corea on 11-18-2022 ALP [Catalytic activity/Vol] 76 U/L 45-[address] [facility] ALT [Catalytic activity/Vol] 13 U/L 13-[address] [facility] CO2 [Moles/Vol] 30.0 mmol/L 21.0-32.[address] [facility] Globulin (S) [Mass/Vol] 3.6 g/dL 2.2-4.2 [facility] Urea nitrogen/Creatinine [Mass ratio] 13.6 mg/mg 10-[address] [facility] Laboratory - CoagulationOrde red By: Mo Corea on 11-18-2022 aPTT Coag (Bld) [Time] 48.1 s 24.1-36.2 [facility] PT Coag (PPP) [Time] 22.7 s 11.7-14.9 [facility] Laboratory - Hematology and Cell countsOrdered By: Mo Corea on 11-18-2022 Erythrocyte distribution width (RBC) [Entitic vol] 44.2 fL 35.1-43.9 [facility] Erythrocyte distribution width (RBC) [Ratio] 13.1 % 11.6-14.[address] [facility] Immature granulocytes/100 WBC (Bld) 0.300 % 0.0-0.[address] [facility] Comment on above: IG% - Immature Granu locytes (promyelocytes, myelocytes and metamyelocytes) > 1% indicates that a LEFT SHIFT is Present. MCH (RBC) [Entitic mass] 30.0 pg 27.0-32.[address] [facility] Nucleated RBC/100 WBC (Bld) [Ratio] 0 % 0-[address] [facility] MCHC Auto (RBC) [Mass/Vol]Or dered By: Mo Corea on 11-18-2022 MCHC (RBC) [Mass/Vol] 32.5 g/dL 32-36 [facility] Mucus LM Ql (Urine sed)Order ed By: Mo Corea on 11-18-2022 Mucus Ql (Urine sed) 0 SEEN /hpf [facility] Nitrite Test strip Ql (U)Ord ered By: Mo Corea on 11-18-2022 Nitrite Ql (U) Negative Negative [facility] No Panel InformationOrdered By: Mo Corea on 11-18-2022 Estimated Creatinine Clearance Calc 31.83 ml/min [facility] Estimated GFR (MDRD) Amer 65 mL/min >[address] [facility] Comment on above: GFR Calc Estimated GFR (MDRD) Non-Af Amer 54 mL/min >[address] [facility] Comment on above: Non- GFR Calc Platelets bldOrdered By: Rebecca Corea on 11-18-2022 Platelets (Bld) [#/Vol] 289 10*3/uL 150-[address] [facility] Protein Test strip Ql (U)Ord ered By: Mo Corea on 11-18-2022 Protein Ql (U) 15 mg/dl Negative [facility] Serum or plasma albumin viktoria urement (mass/volume)Ordered By: Mo Corea on 11-18-2022 Albumin [Mass/Vol] 3.3 g/dL 3.2-5.0 [facility] Serum or plasma albumin/glob ulin mass ratioOrdered By: Mo Corea on 11-18-2022 Albumin/Globulin [Mass ratio] 0.9 {ratio} 0.9-2.[address] [facility] Serum or plasma calcium viktoria urement (mass/volume)Ordered By: Mo Corea on 11-18-2022 Calcium [Mass/Vol] 8.7 mg/dL 8.5-10.1 [facility] Serum or plasma creatinine m easurement (mass/volume)Ordered By: Mo Corea on 11-18-2022 Creatinine [Mass/Vol] 1.03 mg/dL 0.55-1.02 [facility] Comment on above: The validity of the calculated GFR & GFRAA in patients over 70 years has not been determined. Clinical correlation is essential. Serum or plasma urea nitroge n measurement (mass/volume)Ordered By: Mo Corea on 11-18-2022 Urea nitrogen [Mass/Vol] 14 mg/dL 7-[address] [facility] Squamous epithelial cells de tection in urine sediment by light microscopyOrdered By: Mo Corea on 11-18-2022 Epithelial cells.squamous LM Ql (Urine sed) 0-5 SEEN /hpf 5-[address] [facility] Thin prep Papanicolaou smear with manual screeningOrdered By: Mo Corea on 11-18-2022 Thin prep Papanicolaou smear with manual screening 15 U/L 15-[address] [facility] Thin prep Papanicolaou smear with manual screening 2 5-[address] [facility] Urine blood detectionOrdered By: Mo Corea on 11-18-2022 RBC Ql (U) Negative Negative [facility] RBC Ql (U) 0 SEEN /hpf 0-[address] [facility] Urine clarityOrdered By: Rebecca Corea on 11-18-2022 Clarity (U) Sl. Cloudy Clear [facility] Urine color determinationOrd ered By: Mo Corea on 11-18-2022 Color (U) Yellow Yellow [facility] Urine glucose detectionOrder ed By: Mo oCrea on 11-18-2022 Glucose Ql (U) Normal mg/dl Normal [facility] Urine leukocyte esterase det ection by dipstickOrdered By: Mo Corea on 11-18-2022 Leukocyte esterase Test strip Ql (U) 25 /ul Negative [facility] Urine pHOrdered By: Mo amado on 11-18-2022 pH (U) 7.0 [pH] 5.0 - 8.[address] [facility] Urine sediment bacteria coun t by microscopy (number/high power field)Ordered By: Mo Corea on 11-18-2022 Bacteria LM.HPF (Urine sed) [#/Area] 0 /[HPF] None Seen [facility] Urine specific gravity measu rementOrdered By: Mo Corea on 11-18-2022 Specific gravity (U) [Rel density] 1.010 1.002-1.[address] [facility] Urobilinogen Auto test strip Ql (U)Ordered By: Mo Corea on 11-18-2022 Urobilinogen Ql (U) Normal mg/dl Normal [facility] Absolute lymphocyte countOrd ered By: Sae Carballo on 11-15-2022 Lymphocytes Auto (Unsp spec) [#/Vol] 2.03 10*3/uL 0.83-4.[address] [facility] Basophil percentageOrdered B y: Sae Carballo on 11-15-2022 Basophils/100 WBC (Bld) 0.5 % 0-1 [facility] Chloride [Moles/Vol] 107 mmol/L 98-107 [facility] Cholesterol [Mass/Vol] 164 mg/dL <200 [facility] Comment on above: <200 mg/dL Desirable 200-240 mg/dL Borderline >240 mg/dL High Risk Eosinophils/100 WBC (Bld) 3.5 % 0-[address] [facility] Glucose [Mass/Vol] 124 mg/dL 74-106 [facility] Comment on above: Fasting Glucose resu lt from 100 to 125 mg/dL suggests IMPAIRED HOMEOSTASIS per A.D.A. criteria. Neutrophils (Bld) [#/Vol] 4.7 10*3/uL 2.0-7.[address] [facility] Neutrophils/100 WBC (Bld) 60.3 % 47-[address] [facility] Potassium [Moles/Vol] 4.1 mmol/L 3.5-5.1 [facility] Sodium [Moles/Vol] 139 mmol/L 136-145 [facility] Triglyceride [Mass/Vol] 133 mg/dL <199 [facility] Comment on above: The drugs N-Acetylcy steine and Metamizole may falsely depress this assay.Serum Triglycerides Reference Interval Normal <150 mg/dL Borderline high 150 - 199 mg/dL High 200 - 499 mg/dL Very High > or = 500 mg/dL WBC (Bld) [#/Vol] 7.8 10*3/uL 4.4-11.0 [facility] Blood erythrocytes count (nu mber/volume)Ordered By: Sae Carballo on 11-15-2022 RBC (Bld) [#/Vol] 4.32 10*6/uL 4.2-5.4 [facility] Blood hemoglobin measurement (mass/volume)Ordered By: Sae Carballo on 11-15-2022 Hemoglobin (Bld) [Mass/Vol] 12.9 g/dL 12.0-15.[address] [facility] Blood lymphocytes/100 leukoc ytesOrdered By: Sae Carballo on 11-15-2022 Lymphocytes/100 WBC (Bld) 26.2 % 19-[address] [facility] Blood monocytes/100 leukocyt esOrdered By: Sae Carballo on 11-15-2022 Monocytes/100 WBC (Bld) 9.4 % 0-10 [facility] Blood platelet mean volumeOr dered By: Sae Carballo on 11-15-2022 Platelet mean volume (Bld) [Entitic vol] 10.6 fL 6.2-12.[address] [facility] Determination of erythrocyte mean corpuscular volume (MCV)Ordered By: Sae Carballo on 11-15-2022 MCV (RBC) [Entitic vol] 91.7 fL 81-[address] [facility] Hematocrit Auto (Bld) [Volum e fraction]Ordered By: Sae Carballo on 11-15-2022 Hematocrit (Bld) [Volume fraction] 39.6 % 37-[address] [facility] INR in Blood by Coagulation assayOrdered By: Sae Carballo on 11-15-2022 INR Coag (Bld) [Relative time] 2.0 {INR} [facility] Laboratory - Chemistry and C hemistry - challengeOrdered By: Sae Carballo on 11-15-2022 CO2 [Moles/Vol] 25.0 mmol/L 21.0-32.[address] [facility] Urea nitrogen/Creatinine [Mass ratio] 15.8 mg/mg 10-[address] [facility] Laboratory - CoagulationOrde red By: Sae Carballo on 11-15-2022 PT Coag (PPP) [Time] 23.0 s 11.7-14.9 [facility] Laboratory - Hematology and Cell countsOrdered By: Sae Carballo on 11-15-2022 Erythrocyte distribution width (RBC) [Entitic vol] 43.4 fL 35.1-43.9 [facility] Erythrocyte distribution width (RBC) [Ratio] 12.9 % 11.6-14.[address] [facility] Immature granulocytes/100 WBC (Bld) 0.100 % 0.0-0.[address] [facility] Comment on above: IG% - Immature Granu locytes (promyelocytes, myelocytes and metamyelocytes) > 1% indicates that a LEFT SHIFT is Present. MCH (RBC) [Entitic mass] 29.9 pg 27.0-32.[address] [facility] Nucleated RBC/100 WBC (Bld) [Ratio] 0 % 0-[address] [facility] MCHC Auto (RBC) [Mass/Vol]Or dered By: Sae Carballo on 11-15-2022 MCHC (RBC) [Mass/Vol] 32.6 g/dL 32-36 [facility] No Panel InformationOrdered By: Sae Carballo on 11-15-2022 Estimated Creatinine Clearance Calc 37.26 ml/min [facility] Estimated GFR (MDRD) Amer 78 mL/min >[address] [facility] Comment on above: GFR Calc Estimated GFR (MDRD) Non-Af Amer 64 mL/min >[address] [facility] Comment on above: Non- GFR Calc Platelets bldOrdered By: Ramos Carballo on 11-15-2022 Platelets (Bld) [#/Vol] 278 10*3/uL 150-[address] [facility] Serum or plasma calcium viktoria urement (mass/volume)Ordered By: Sae Carballo on 11-15-2022 Calcium [Mass/Vol] 8.5 mg/dL 8.5-10.1 [facility] Serum or plasma cholesterol in HDL measurement (mass/volume)Ordered By: Sae Carballo on 11-15-2022 Cholesterol in HDL [Mass/Vol] 49 mg/dL >[address] [facility] Comment on above: The drugs N-Acetylcy steine and Metamizole may falsely depress this assay. Reference Range HDL <40 mg/dL Low HDL Cholesterol HDL >or= 60 mg/dL High HDL Cholesterol Serum or plasma cholesterol in VLDL measurement (mass/volume)Ordered By: Sae Carballo on 11-15-2022 Cholesterol in VLDL [Mass/Vol] 27 mg/dL 5-[address] [facility] Serum or plasma creatinine m easurement (mass/volume)Ordered By: Sae Carballo on 11-15-2022 Creatinine [Mass/Vol] 0.88 mg/dL 0.55-1.02 [facility] Comment on above: The validity of the calculated GFR & GFRAA in patients over 70 years has not been determined. Clinical correlation is essential. Serum or plasma low density lipoprotein (LDL) cholesterol measurement (mass/volume)Ordered By: Sae Carballo on 11-15-2022 Cholesterol in LDL [Mass/Vol] 88 mg/dL 0-[address] [facility] Serum or plasma urea nitroge n measurement (mass/volume)Ordered By: Sae Carballo on 11-15-2022 Urea nitrogen [Mass/Vol] 14 mg/dL 7-[address] [facility] Thin prep Papanicolaou smear with manual screeningOrdered By: Sae Carballo on 11-15-2022 Thin prep Papanicolaou smear with manual screening 7 5-[address] [facility] Absolute lymphocyte countOrd ered By: Neri Mitchell on 11-14-2022 Lymphocytes Auto (Unsp spec) [#/Vol] 2.35 10*3/uL 0.83-4.[address] [facility] Basophil percentageOrdered B y: Neri Mitchell on 11-14-2022 Basophils/100 WBC (Bld) 0.6 % 0-1 [facility] Chloride [Moles/Vol] 104 mmol/L 98-107 [facility] Eosinophils/100 WBC (Bld) 2.4 % 0-[address] [facility] Glucose [Mass/Vol] 135 mg/dL 74-106 [facility] Comment on above: Fasting Glucose resu lt greater than or equal to 126 mg/dL suggests DIABETES MELLITUS per A.D.A. criteria. Neutrophils (Bld) [#/Vol] 6.0 10*3/uL 2.0-7.[address] [facility] Neutrophils/100 WBC (Bld) 64.0 % 47-[address] [facility] Potassium [Moles/Vol] 4.0 mmol/L 3.5-5.1 [facility] Sodium [Moles/Vol] 138 mmol/L 136-145 [facility] WBC (Bld) [#/Vol] 9.4 10*3/uL 4.4-11.0 [facility] Blood erythrocytes count (nu mber/volume)Ordered By: Neri Mitchell on 11-14-2022 RBC (Bld) [#/Vol] 4.79 10*6/uL 4.2-5.4 [facility] Blood hemoglobin measurement (mass/volume)Ordered By: Neri Mitchell on 11-14-2022 Hemoglobin (Bld) [Mass/Vol] 14.3 g/dL 12.0-15.[address] [facility] Blood lymphocytes/100 leukoc ytesOrdered By: Neri Mitchell on 11-14-2022 Lymphocytes/100 WBC (Bld) 24.9 % 19-[address] [facility] Blood monocytes/100 leukocyt esOrdered By: Neri Mitchell on 11-14-2022 Monocytes/100 WBC (Bld) 7.8 % 0-10 [facility] Blood platelet mean volumeOr dered By: Neri Mitchell on 11-14-2022 Platelet mean volume (Bld) [Entitic vol] 10.6 fL 6.2-12.[address] [facility] Determination of erythrocyte mean corpuscular volume (MCV)Ordered By: Neri Mitchell on 11-14-2022 MCV (RBC) [Entitic vol] 93.5 fL 81-99 [facility] Glucose Glucometer (BldC) [M ass/Vol]Ordered By: Neri Mitchell on 11-14-2022 Glucose [Mass/Vol] 136 mg/dL 74-106 [facility] Comment on above: MANAGEMENT OF PATIEN T CARE PER NURSING PROTOCOL Hematocrit Auto (Bld) [Volum e fraction]Ordered By: Neri Mitchell on 11-14-2022 Hematocrit (Bld) [Volume fraction] 44.8 % 37-[address] [facility] INR in Blood by Coagulation assayOrdered By: Neri Mitchell on 11-14-2022 INR Coag (Bld) [Relative time] 1.8 {INR} [facility] Laboratory - Chemistry and C hemistry - challengeOrdered By: Neri Mitchell on 11-14-2022 CO2 [Moles/Vol] 28.0 mmol/L 21.0-32.[address] [facility] Urea nitrogen/Creatinine [Mass ratio] 12.3 mg/mg 10-[address] [facility] Laboratory - CoagulationOrde red By: Neri Mitchell on 11-14-2022 aPTT Coag (Bld) [Time] 43.3 s 24.1-36.2 [facility] PT Coag (PPP) [Time] 21.3 s 11.7-14.9 [facility] Laboratory - Hematology and Cell countsOrdered By: Neri Mitchell on 11-14-2022 Erythrocyte distribution width (RBC) [Entitic vol] 44.7 fL 35.1-43.9 [facility] Erythrocyte distribution width (RBC) [Ratio] 13.0 % 11.6-14.[address] [facility] Immature granulocytes/100 WBC (Bld) 0.300 % 0.0-0.[address] [facility] Comment on above: IG% - Immature Granu locytes (promyelocytes, myelocytes and metamyelocytes) > 1% indicates that a LEFT SHIFT is Present. MCH (RBC) [Entitic mass] 29.9 pg 27.0-32.[address] [facility] Nucleated RBC/100 WBC (Bld) [Ratio] 0 % 0-[address] [facility] MCHC Auto (RBC) [Mass/Vol]Or dered By: Neri Mitchell on 11-14-2022 MCHC (RBC) [Mass/Vol] 31.9 g/dL 32-36 [facility] No Panel InformationOrdered By: Neri Mitchell on 11-14-2022 Estimated Creatinine Clearance Calc 28.76 ml/min [facility] Estimated GFR (MDRD) Amer 58 mL/min >[address] [facility] Comment on above: GFR Calc Estimated GFR (MDRD) Non-Af Amer 48 mL/min >[address] [facility] Comment on above: Non- GFR Calc Troponin I High Sensitivity 10 pg/mL 3.0-54.[address] [facility] Comment on above: Please Note: New Evon t Units and Gender Specific Reference Ranges. For more information see Policy Stat Procedure [place] High Sensitivity Troponin (TNIH) and attachments. Platelets bldOrdered By: Prasad Mitchell on 11-14-2022 Platelets (Bld) [#/Vol] 313 10*3/uL 150-[address] [facility] Serum or plasma calcium viktoria urement (mass/volume)Ordered By: Neri Mitchell on 11-14-2022 Calcium [Mass/Vol] 9.0 mg/dL 8.5-10.1 [facility] Serum or plasma creatinine m easurement (mass/volume)Ordered By: Neri Mitchell on 11-14-2022 Creatinine [Mass/Vol] 1.14 mg/dL 0.55-1.02 [facility] Comment on above: The validity of the calculated GFR & GFRAA in patients over 70 years has not been determined. Clinical correlation is essential. Serum or plasma urea nitroge n measurement (mass/volume)Ordered By: Neri Mitchell on 11-14-2022 Urea nitrogen [Mass/Vol] 14 mg/dL 7-[address] [facility] Thin prep Papanicolaou smear with manual screeningOrdered By: Neri Mitchell on 11-14-2022 Thin prep Papanicolaou smear with manual screening 6 5-[address] [facility] INR in Blood by Coagulation assayOrdered By: Dr. Juarez on 09-18-2022 INR Coag (Bld) [Relative time] 1.8 {INR} [facility] Laboratory - CoagulationOrde red By: Dr. Juarez on 09-18-2022 PT Coag (PPP) [Time] 20.9 s 11.7-14.9 [facility] No Panel InformationOrdered By: Anant Juarez on 09-18-2022 Free Lambda Light Chains, Quant 15.7 mg/L 5.7-26.[address] [facility] Whole Blood Vitamin B1 Level 111.8 nmol/L 66.5-200.[address] [facility] Comment on above: Performed at: - [facility] [address] [id number] Director: Master Vee PhD, Phone: [phone] at: - [facility] [address] [id number] Director: Brandon Wells MD, Phone: [phone] Serum immunoglobulin kappa l ight chains/immunoglobulin lambda light chains mass ratioOrdered By: Anant Juarez on 09-18-2022 Immunoglobulin light chains.kappa/Immunoglobul in light chains.lambda (S) [Mass ratio] 1.74 0.26-1.[address] [facility] Serum or plasma folate measu rement (mass/volume)Ordered By: Dr. Juarez on 09-18-2022 Folate [Mass/Vol] 51.90 ng/mL 3.1-55.4 [facility] Comment on above: Slight Hemolysis, Re sult may be falsely increased. Serum or plasma immunoglobul in kappa light chains measurement (mass/volume)Ordered By: Anant Juarez on 09-18-2022 Immunoglobulin light chains.kappa [Mass/Vol] 27.3 mg/L 3.3-19.[address] [facility] Culture, urineOrdered By: Slim Doran on 09-17-2022 Bacteria identified Cx Nom (U) Streptococcus agalactiae (B) [facility] INR in Blood by Coagulation assayOrdered By: Dr. Doran on 09-13-2022 INR Coag (Bld) [Relative time] 1.5 {INR} [facility] Laboratory - CoagulationOrde red By: Dr. Doran on 09-13-2022 PT Coag (PPP) [Time] 18.1 s 11.7-14.9 [facility] Absolute lymphocyte countOrd ered By: Dr. Barcenas on 09-08-2022 Lymphocytes Auto (Unsp spec) [#/Vol] 2.60 10*3/uL 0.83-4.[address] [facility] Basophil percentageOrdered B y: Dr. Barcenas on 09-08-2022 Basophil percentage 0 SEEN /hpf 0-5 [facility] Basophils/100 WBC (Bld) 0.4 % 0-1 [facility] Bilirubin [Mass/Vol] 0.30 mg/dL 0.20-1.00 [facility] Comment on above: For patients on eltr ombopag therapy, use of Dimension [place] TBIL is not recommended. Chloride [Moles/Vol] 103 mmol/L 98-107 [facility] Eosinophils/100 WBC (Bld) 2.3 % 0-[address] [facility] Glucose [Mass/Vol] 78 mg/dL 74-106 [facility] Neutrophils (Bld) [#/Vol] 5.2 10*3/uL 2.0-7.[address] [facility] Neutrophils/100 WBC (Bld) 57.4 % 47-[address] [facility] Potassium [Moles/Vol] 3.8 mmol/L 3.5-5.1 [facility] Protein [Mass/Vol] 6.9 g/dL 6.4-8.2 [facility] Sodium [Moles/Vol] 139 mmol/L 136-145 [facility] WBC (Bld) [#/Vol] 9.1 10*3/uL 4.4-11.0 [facility] Bilirubin Test strip Ql (U)O rdered By: Dr. Barcenas on 09-08-2022 Bilirubin Ql (U) Negative Negative [facility] Blood erythrocytes count (nu mber/volume)Ordered By: Dr. Barcenas on 09-08-2022 RBC (Bld) [#/Vol] 4.48 10*6/uL 4.2-5.4 [facility] Blood hemoglobin measurement (mass/volume)Ordered By: Dr. Barcenas on 09-08-2022 Hemoglobin (Bld) [Mass/Vol] 13.4 g/dL 12.0-15.[address] [facility] Blood lymphocytes/100 leukoc ytesOrdered By: Dr. Barcenas on 09-08-2022 Lymphocytes/100 WBC (Bld) 28.5 % 19-[address] [facility] Blood monocytes/100 leukocyt esOrdered By: Dr. Barcenas on 09-08-2022 Monocytes/100 WBC (Bld) 11.1 % 0-[address] [facility] Blood platelet mean volumeOr dered By: Dr. Barcenas on 09-08-2022 Platelet mean volume (Bld) [Entitic vol] 10.7 fL 6.2-12.[address] [facility] Determination of erythrocyte mean corpuscular volume (MCV)Ordered By: Dr. Barcenas on 09-08-2022 MCV (RBC) [Entitic vol] 92.4 fL 81-99 [facility] Hematocrit Auto (Bld) [Volum e fraction]Ordered By: Dr. Barcenas on 09-08-2022 Hematocrit (Bld) [Volume fraction] 41.4 % 37-[address] [facility] INR in Blood by Coagulation assayOrdered By: Dr. Barcenas on 09-08-2022 INR Coag (Bld) [Relative time] 1.0 {INR} [facility] Ketones Test strip Ql (U)Ord ered By: Dr. Barcenas on 09-08-2022 Ketones Ql (U) Negative Negative [facility] Laboratory - Chemistry and C hemistry - challengeOrdered By: Dr. Barcenas on 09-08-2022 ALP [Catalytic activity/Vol] 71 U/L 45-[address] [facility] ALT [Catalytic activity/Vol] 9 U/L 13-[address] [facility] CO2 [Moles/Vol] 30.0 mmol/L 21.0-32.[address] [facility] Globulin (S) [Mass/Vol] 3.7 g/dL 2.2-4.2 [facility] Urea nitrogen/Creatinine [Mass ratio] 17.1 mg/mg 10-[address] [facility] Laboratory - CoagulationOrde red By: Dr. Barcenas on 09-08-2022 PT Coag (PPP) [Time] 13.6 s 11.7-14.9 [facility] Laboratory - Hematology and Cell countsOrdered By: Dr. Barcenas on 09-08-2022 Erythrocyte distribution width (RBC) [Entitic vol] 44.8 fL 35.1-43.9 [facility] Erythrocyte distribution width (RBC) [Ratio] 13.2 % 11.6-14.[address] [facility] Immature granulocytes/100 WBC (Bld) 0.300 % 0.0-0.[address] [facility] Comment on above: IG% - Immature Granu locytes (promyelocytes, myelocytes and metamyelocytes) > 1% indicates that a LEFT SHIFT is Present. MCH (RBC) [Entitic mass] 29.9 pg 27.0-32.[address] [facility] Nucleated RBC/100 WBC (Bld) [Ratio] 0 % 0-[address] [facility] MCHC Auto (RBC) [Mass/Vol]Or dered By: Dr. Barcenas on 09-08-2022 MCHC (RBC) [Mass/Vol] 32.4 g/dL 32-36 [facility] Mucus LM Ql (Urine sed)Order ed By: Dr. Barcenas on 09-08-2022 Mucus Ql (Urine sed) 0 SEEN /hpf [facility] Nitrite Test strip Ql (U)Ord ered By: Dr. Barcenas on 09-08-2022 Nitrite Ql (U) Negative Negative [facility] No Panel InformationOrdered By: Dr. Barcenas on 09-08-2022 Estimated Creatinine Clearance Calc 31.23 ml/min [facility] Estimated GFR (MDRD) Amer 64 mL/min >[address] [facility] Comment on above: GFR Calc Estimated GFR (MDRD) Non-Af Amer 53 mL/min >[address] [facility] Comment on above: Non- GFR Calc Troponin I High Sensitivity 86 pg/mL 3.0-54.[address] [facility] Comment on above: Please Note: New Evon t Units and Gender Specific Reference Ranges. For more information see Policy Stat Procedure [place] High Sensitivity Troponin (TNIH) and attachments. Platelets bldOrdered By: Dr. Barcenas on 09-08-2022 Platelets (Bld) [#/Vol] 294 10*3/uL 150-[address] [facility] Protein Test strip Ql (U)Ord ered By: Dr. Barcenas on 09-08-2022 Protein Ql (U) Negative Negative [facility] Serum or plasma albumin viktoria urement (mass/volume)Ordered By: Dr. Barcenas on 09-08-2022 Albumin [Mass/Vol] 3.2 g/dL 3.2-5.0 [facility] Serum or plasma albumin/glob ulin mass ratioOrdered By: Dr. Barcenas on 09-08-2022 Albumin/Globulin [Mass ratio] 0.9 {ratio} 0.9-2.[address] [facility] Serum or plasma calcium viktoria urement (mass/volume)Ordered By: Dr. Barcenas on 09-08-2022 Calcium [Mass/Vol] 8.8 mg/dL 8.5-10.1 [facility] Serum or plasma creatinine m easurement (mass/volume)Ordered By: Dr. Barcenas on 09-08-2022 Creatinine [Mass/Vol] 1.05 mg/dL 0.55-1.02 [facility] Comment on above: The validity of the calculated GFR & GFRAA in patients over 70 years has not been determined. Clinical correlation is essential. Serum or plasma urea nitroge n measurement (mass/volume)Ordered By: Dr. Barcenas on 09-08-2022 Urea nitrogen [Mass/Vol] 18 mg/dL 7-[address] [facility] Squamous epithelial cells de tection in urine sediment by light microscopyOrdered By: Dr. Barcenas on 09-08-2022 Epithelial cells.squamous LM Ql (Urine sed) 0-5 SEEN /hpf 5-[address] [facility] Thin prep Papanicolaou smear with manual screeningOrdered By: Dr. Barcenas on 09-08-2022 Thin prep Papanicolaou smear with manual screening 9 U/L 15-[address] [facility] Thin prep Papanicolaou smear with manual screening 6 5-[address] [facility] Urine blood detectionOrdered By: Dr. Barcenas on 09-08-2022 RBC Ql (U) Negative Negative [facility] RBC Ql (U) 0 SEEN /hpf 0-[address] [facility] Urine clarityOrdered By: Dr. Barcenas on 09-08-2022 Clarity (U) Clear Clear [facility] Urine color determinationOrd ered By: Dr. Barcenas on 09-08-2022 Color (U) Yellow Yellow [facility] Urine glucose detectionOrder ed By: Dr. Barcenas on 09-08-2022 Glucose Ql (U) Normal mg/dl Normal [facility] Urine leukocyte esterase det ection by dipstickOrdered By: Dr. Barcenas on 09-08-2022 Leukocyte esterase Test strip Ql (U) Negative Negative [facility] Urine pHOrdered By: Dr. Moody leal on 09-08-2022 pH (U) 6.5 [pH] 5.0 - 8.[address] [facility] Urine sediment bacteria coun t by microscopy (number/high power field)Ordered By: Dr. Barcenas on 09-08-2022 Bacteria LM.HPF (Urine sed) [#/Area] 0 /[HPF] None Seen [facility] Urine specific gravity measu rementOrdered By: Dr. Barcenas on 09-08-2022 Specific gravity (U) [Rel density] 1.010 1.002-1.[address] [facility] Urobilinogen Auto test strip Ql (U)Ordered By: Dr. Barcenas on 09-08-2022 Urobilinogen Ql (U) Normal mg/dl Normal [facility] Absolute lymphocyte countOrd ered By: Dr. Doran on 09-05-2022 Lymphocytes Auto (Unsp spec) [#/Vol] 1.27 10*3/uL 0.83-4.[address] [facility] Basophil percentageOrdered B y: Dr. Doran on 09-05-2022 Basophils/100 WBC (Bld) 0.4 % 0-[address] [facility] Chloride [Moles/Vol] 106 mmol/L 98-107 [facility] Eosinophils/100 WBC (Bld) 1.0 % 0-[address] [facility] Glucose [Mass/Vol] 202 mg/dL 74-106 [facility] Comment on above: Glucose result great er than or equal to 200 mg/dLsuggests DIABETES MELLITUS per A.D.A. criteria. Neutrophils (Bld) [#/Vol] 8.3 10*3/uL 2.0-7.[address] [facility] Neutrophils/100 WBC (Bld) 79.7 % 47-[address] [facility] Potassium [Moles/Vol] 3.7 mmol/L 3.5-5.1 [facility] Sodium [Moles/Vol] 139 mmol/L 136-145 [facility] WBC (Bld) [#/Vol] 10.4 10*3/uL 4.4-11.0 [facility] Blood erythrocytes count (nu mber/volume)Ordered By: Dr. Doran on 09-05-2022 RBC (Bld) [#/Vol] 4.72 10*6/uL 4.2-5.4 [facility] Blood hemoglobin measurement (mass/volume)Ordered By: Dr. Doran on 09-05-2022 Hemoglobin (Bld) [Mass/Vol] 14.1 g/dL 12.0-15.[address] [facility] Blood lymphocytes/100 leukoc ytesOrdered By: Dr. Doran on 09-05-2022 Lymphocytes/100 WBC (Bld) 12.3 % 19-[address] [facility] Blood monocytes/100 leukocyt esOrdered By: Dr. Doran on 09-05-2022 Monocytes/100 WBC (Bld) 6.3 % 0-10 [facility] Blood platelet mean volumeOr dered By: Dr. Doran on 09-05-2022 Platelet mean volume (Bld) [Entitic vol] 11.2 fL 6.2-12.[address] [facility] Determination of erythrocyte mean corpuscular volume (MCV)Ordered By: Dr. Doran on 09-05-2022 MCV (RBC) [Entitic vol] 93.9 fL 81-99 [facility] Hematocrit Auto (Bld) [Volum e fraction]Ordered By: Dr. Doran on 09-05-2022 Hematocrit (Bld) [Volume fraction] 44.3 % 37-[address] [facility] INR in Blood by Coagulation assayOrdered By: Dr. Doran on 09-05-2022 INR Coag (Bld) [Relative time] 1.1 {INR} [facility] Laboratory - Chemistry and C hemistry - challengeOrdered By: Dr. Doran on 09-05-2022 CO2 [Moles/Vol] 24.0 mmol/L 21.0-32.[address] [facility] Urea nitrogen/Creatinine [Mass ratio] 18.3 mg/mg 10-[address] [facility] Laboratory - CoagulationOrde red By: Dr. Doran on 09-05-2022 PT Coag (PPP) [Time] 13.8 s 11.7-14.9 [facility] Laboratory - Hematology and Cell countsOrdered By: Dr. Doran on 09-05-2022 Erythrocyte distribution width (RBC) [Entitic vol] 45.5 fL 35.1-43.9 [facility] Erythrocyte distribution width (RBC) [Ratio] 13.2 % 11.6-14.[address] [facility] Immature granulocytes/100 WBC (Bld) 0.300 % 0.0-0.[address] [facility] Comment on above: IG% - Immature Granu locytes (promyelocytes, myelocytes and metamyelocytes) > 1% indicates that a LEFT SHIFT is Present. MCH (RBC) [Entitic mass] 29.9 pg 27.0-32.[address] [facility] Nucleated RBC/100 WBC (Bld) [Ratio] 0 % 0-[address] [facility] MCHC Auto (RBC) [Mass/Vol]Or dered By: Dr. Doran on 09-05-2022 MCHC (RBC) [Mass/Vol] 31.8 g/dL 32-36 [facility] No Panel InformationOrdered By: Dr. Doran on 09-05-2022 Estimated GFR (MDRD) Amer 61 mL/min >[address] [facility] Comment on above: GFR Calc Estimated GFR (MDRD) Non-Af Amer 50 mL/min >[address] [facility] Comment on above: Non- GFR Calc Thyroid Stimulating Hormone (TSH) 2.84 uIU/mL 0.358-3.[address] [facility] Platelets bldOrdered By: Dr. Doran on 09-05-2022 Platelets (Bld) [#/Vol] 311 10*3/uL 150-[address] [facility] Serum or plasma calcium viktoria urement (mass/volume)Ordered By: Dr. Doran on 09-05-2022 Calcium [Mass/Vol] 8.8 mg/dL 8.5-10.1 [facility] Serum or plasma creatinine m easurement (mass/volume)Ordered By: Dr. Doran on 09-05-2022 Creatinine [Mass/Vol] 1.09 mg/dL 0.55-1.02 [facility] Comment on above: The validity of the calculated GFR & GFRAA in patients over 70 years has not been determined. Clinical correlation is essential. Serum or plasma urea nitroge n measurement (mass/volume)Ordered By: Dr. Doran on 09-05-2022 Urea nitrogen [Mass/Vol] 20 mg/dL 7-[address] [facility] Thin prep Papanicolaou smear with manual screeningOrdered By: Dr. Doran on 09-05-2022 Thin prep Papanicolaou smear with manual screening 9 5-[address] [facility] Absolute lymphocyte countOrd ered By: Dr. Doran on 08-08-2022 Lymphocytes Auto (Unsp spec) [#/Vol] 1.97 10*3/uL 0.83-4.[address] [facility] Basophil percentageOrdered B y: Dr. Doran on 08-08-2022 Basophils/100 WBC (Bld) 0.5 % 0-1 [facility] Chloride [Moles/Vol] 105 mmol/L 98-107 [facility] Eosinophils/100 WBC (Bld) 3.2 % 0-[address] [facility] Glucose [Mass/Vol] 147 mg/dL 74-106 [facility] Comment on above: Fasting Glucose resu lt greater than or equal to 126 mg/dL suggests DIABETES MELLITUS per A.D.A. criteria. Neutrophils (Bld) [#/Vol] 4.6 10*3/uL 2.0-7.[address] [facility] Neutrophils/100 WBC (Bld) 60.9 % 47-[address] [facility] Potassium [Moles/Vol] 4.9 mmol/L 3.5-5.1 [facility] Sodium [Moles/Vol] 140 mmol/L 136-145 [facility] WBC (Bld) [#/Vol] 7.5 10*3/uL 4.4-11.0 [facility] Blood erythrocytes count (nu mber/volume)Ordered By: Dr. Doran on 08-08-2022 RBC (Bld) [#/Vol] 4.73 10*6/uL 4.2-5.4 [facility] Blood hemoglobin measurement (mass/volume)Ordered By: Dr. Doran on 08-08-2022 Hemoglobin (Bld) [Mass/Vol] 14.0 g/dL 12.0-15.[address] [facility] Blood lymphocytes/100 leukoc ytesOrdered By: Dr. Doran on 08-08-2022 Lymphocytes/100 WBC (Bld) 26.2 % 19-[address] [facility] Blood monocytes/100 leukocyt esOrdered By: Dr. Doran on 08-08-2022 Monocytes/100 WBC (Bld) 8.8 % 0-10 [facility] Blood platelet mean volumeOr dered By: Dr. Doran on 08-08-2022 Platelet mean volume (Bld) [Entitic vol] 10.9 fL 6.2-12.[address] [facility] Determination of erythrocyte mean corpuscular volume (MCV)Ordered By: Dr. Doran on 08-08-2022 MCV (RBC) [Entitic vol] 94.1 fL 81-99 [facility] Hematocrit Auto (Bld) [Volum e fraction]Ordered By: Dr. Doran on 08-08-2022 Hematocrit (Bld) [Volume fraction] 44.5 % 37-[address] [facility] Laboratory - Chemistry and C hemistry - challengeOrdered By: Dr. Doran on 08-08-2022 CO2 [Moles/Vol] 29.0 mmol/L 21.0-32.[address] [facility] Cobalamin (Vitamin B12) [Mass/Vol] 853 pg/mL 211-[address] [facility] Urea nitrogen/Creatinine [Mass ratio] 18.3 mg/mg 10-[address] [facility] Laboratory - Hematology and Cell countsOrdered By: Dr. Doran on 08-08-2022 Erythrocyte distribution width (RBC) [Entitic vol] 45.5 fL 35.1-43.9 [facility] Erythrocyte distribution width (RBC) [Ratio] 13.2 % 11.6-14.[address] [facility] Immature granulocytes/100 WBC (Bld) 0.400 % 0.0-0.[address] [facility] Comment on above: IG% - Immature Granu locytes (promyelocytes, myelocytes and metamyelocytes) > 1% indicates that a LEFT SHIFT is Present. MCH (RBC) [Entitic mass] 29.6 pg 27.0-32.[address] [facility] Nucleated RBC/100 WBC (Bld) [Ratio] 0 % 0-[address] [facility] MCHC Auto (RBC) [Mass/Vol]Or dered By: Dr. Doran on 08-08-2022 MCHC (RBC) [Mass/Vol] 31.5 g/dL 32-36 [facility] No Panel InformationOrdered By: Dr. Doran on 08-08-2022 Estimated GFR (MDRD) Amer 57 mL/min >[address] [facility] Comment on above: GFR Calc Estimated GFR (MDRD) Non-Af Amer 47 mL/min >[address] [facility] Comment on above: Non- GFR Calc Vitamin D 25-Hydroxy 35.5 ng/mL [facility] Comment on above: Vitamin D 25(OH) Sta tus Range Deficiency <20 ng/mL (50nmol/L) Insufficiency 20 - 30 ng/mL (50 - 75 nmol/L) Sufficiency 30 - 100 ng/mL (75 - 250 nmol/L) Toxicity >100 ng/mL (>250 nmol/L) Platelets bldOrdered By: Dr. Doran on 08-08-2022 Platelets (Bld) [#/Vol] 365 10*3/uL 150-[address] [facility] Serum or plasma calcium viktoria urement (mass/volume)Ordered By: Dr. Doran on 08-08-2022 Calcium [Mass/Vol] 9.2 mg/dL 8.5-10.1 [facility] Serum or plasma creatinine m easurement (mass/volume)Ordered By: Dr. Doran on 08-08-2022 Creatinine [Mass/Vol] 1.15 mg/dL 0.55-1.02 [facility] Comment on above: The validity of the calculated GFR & GFRAA in patients over 70 years has not been determined. Clinical correlation is essential. Serum or plasma ferritin rich surement (mass/volume)Ordered By: Dr. Doran on 08-08-2022 Ferritin [Mass/Vol] 83 ng/mL 8-252 [facility] Serum or plasma urea nitroge n measurement (mass/volume)Ordered By: Dr. Doran on 08-08-2022 Urea nitrogen [Mass/Vol] 21 mg/dL 7-[address] [facility] Thin prep Papanicolaou smear with manual screeningOrdered By: Dr. Doran on 08-08-2022 Thin prep Papanicolaou smear with manual screening 6 5-[address] [facility] Absolute lymphocyte countOrd ered By: Dr. Doran on 06-26-2022 Lymphocytes Auto (Unsp spec) [#/Vol] 2.42 10*3/uL 0.83-4.[address] [facility] Basophil percentageOrdered B y: Dr. Doran on 06-26-2022 Basophils/100 WBC (Bld) 0.5 % 0-[address] [facility] Bilirubin [Mass/Vol] 0.40 mg/dL 0.20-1.00 [facility] Comment on above: For patients on eltr ombopag therapy, use of Dimension [place] TBIL is not recommended. Chloride [Moles/Vol] 106 mmol/L 98-107 [facility] Cholesterol [Mass/Vol] 163 mg/dL <200 [facility] Comment on above: <200 mg/dL Desirable 200-240 mg/dL Borderline >240 mg/dL High Risk Eosinophils/100 WBC (Bld) 4.2 % 0-[address] [facility] Glucose [Mass/Vol] 142 mg/dL 74-106 [facility] Comment on above: Fasting Glucose resu lt greater than or equal to 126 mg/dL suggests DIABETES MELLITUS per A.D.A. criteria. Neutrophils (Bld) [#/Vol] 3.9 10*3/uL 2.0-7.[address] [facility] Neutrophils/100 WBC (Bld) 53.1 % 47-[address] [facility] Potassium [Moles/Vol] 4.3 mmol/L 3.5-5.1 [facility] Protein [Mass/Vol] 6.9 g/dL 6.4-8.2 [facility] Sodium [Moles/Vol] 139 mmol/L 136-145 [facility] Triglyceride [Mass/Vol] 178 mg/dL <[address] [facility] Comment on above: The drugs N-Acetylcy steine and Metamizole may falsely depress this assay.Serum Triglycerides Reference Interval Normal <150 mg/dL Borderline high 150 - 199 mg/dL High 200 - 499 mg/dL Very High > or = 500 mg/dL WBC (Bld) [#/Vol] 7.4 10*3/uL 4.4-11.0 [facility] Blood erythrocytes count (nu mber/volume)Ordered By: Dr. Doran on 06-26-2022 RBC (Bld) [#/Vol] 4.51 10*6/uL 4.2-5.4 [facility] Blood hemoglobin measurement (mass/volume)Ordered By: Dr. Doran on 06-26-2022 Hemoglobin (Bld) [Mass/Vol] 13.5 g/dL 12.0-15.[address] [facility] Blood lymphocytes/100 leukoc ytesOrdered By: Dr. Doran on 06-26-2022 Lymphocytes/100 WBC (Bld) 32.9 % 19-[address] [facility] Blood monocytes/100 leukocyt esOrdered By: Dr. Doran on 06-26-2022 Monocytes/100 WBC (Bld) 9.0 % 0-10 [facility] Blood platelet mean volumeOr dered By: Dr. Doran on 06-26-2022 Platelet mean volume (Bld) [Entitic vol] 10.2 fL 6.2-12.[address] [facility] Determination of erythrocyte mean corpuscular volume (MCV)Ordered By: Dr. Doran on 06-26-2022 MCV (RBC) [Entitic vol] 92.5 fL 81-99 [facility] Hematocrit Auto (Bld) [Volum e fraction]Ordered By: Dr. Doran on 06-26-2022 Hematocrit (Bld) [Volume fraction] 41.7 % 37-[address] [facility] Laboratory - Chemistry and C hemistry - challengeOrdered By: Dr. Doran on 06-26-2022 ALP [Catalytic activity/Vol] 69 U/L 45-[address] [facility] ALT [Catalytic activity/Vol] 13 U/L 13-[address] [facility] CO2 [Moles/Vol] 29.0 mmol/L 21.0-32.[address] [facility] Globulin (S) [Mass/Vol] 3.7 g/dL 2.2-4.[address] [facility] Urea nitrogen/Creatinine [Mass ratio] 18.0 mg/mg 10-[address] [facility] Laboratory - Hematology and Cell countsOrdered By: Dr. Doran on 06-26-2022 Erythrocyte distribution width (RBC) [Entitic vol] 43.9 fL 35.1-43.9 [facility] Erythrocyte distribution width (RBC) [Ratio] 12.9 % 11.6-14.[address] [facility] Immature granulocytes/100 WBC (Bld) 0.300 % 0.0-0.[address] [facility] Comment on above: IG% - Immature Granu locytes (promyelocytes, myelocytes and metamyelocytes) > 1% indicates that a LEFT SHIFT is Present. MCH (RBC) [Entitic mass] 29.9 pg 27.0-32.[address] [facility] Nucleated RBC/100 WBC (Bld) [Ratio] 0 % 0-[address] [facility] MCHC Auto (RBC) [Mass/Vol]Or dered By: Dr. Doran on 06-26-2022 MCHC (RBC) [Mass/Vol] 32.4 g/dL 32-36 [facility] No Panel InformationOrdered By: Dr. Doran on 06-26-2022 Estimated GFR (MDRD) Amer 60 mL/min >[address] [facility] Comment on above: GFR Calc Estimated GFR (MDRD) Non-Af Amer 49 mL/min >[address] [facility] Comment on above: Non- GFR Calc Platelets bldOrdered By: Dr. Doran on 06-26-2022 Platelets (Bld) [#/Vol] 314 10*3/uL 150-[address] [facility] Serum or plasma albumin viktoria urement (mass/volume)Ordered By: Dr. Doran on 06-26-2022 Albumin [Mass/Vol] 3.2 g/dL 3.2-5.0 [facility] Serum or plasma albumin/glob ulin mass ratioOrdered By: Dr. Doran on 06-26-2022 Albumin/Globulin [Mass ratio] 0.9 {ratio} 0.9-2.[address] [facility] Serum or plasma calcium viktoria urement (mass/volume)Ordered By: Dr. Doran on 06-26-2022 Calcium [Mass/Vol] 8.8 mg/dL 8.5-10.1 [facility] Serum or plasma cholesterol in HDL measurement (mass/volume)Ordered By: Dr. Doran on 06-26-2022 Cholesterol in HDL [Mass/Vol] 47 mg/dL >[address] [facility] Comment on above: The drugs N-Acetylcy steine and Metamizole may falsely depress this assay. Reference Range HDL <40 mg/dL Low HDL Cholesterol HDL >or= 60 mg/dL High HDL Cholesterol Serum or plasma cholesterol in VLDL measurement (mass/volume)Ordered By: Dr. Doran on 06-26-2022 Cholesterol in VLDL [Mass/Vol] 36 mg/dL 5-[address] [facility] Serum or plasma creatinine m easurement (mass/volume)Ordered By: Dr. Doran on 06-26-2022 Creatinine [Mass/Vol] 1.11 mg/dL 0.55-1.02 [facility] Comment on above: The validity of the calculated GFR & GFRAA in patients over 70 years has not been determined. Clinical correlation is essential. Serum or plasma low density lipoprotein (LDL) cholesterol measurement (mass/volume)Ordered By: Dr. Doran on 06-26-2022 Cholesterol in LDL [Mass/Vol] 80 mg/dL 0-[address] [facility] Serum or plasma urea nitroge n measurement (mass/volume)Ordered By: Dr. Doran on 06-26-2022 Urea nitrogen [Mass/Vol] 20 mg/dL 7-[address] [facility] Thin prep Papanicolaou smear with manual screeningOrdered By: Dr. Doran on 06-26-2022 Thin prep Papanicolaou smear with manual screening 15 U/L 15-[address] [facility] Thin prep Papanicolaou smear with manual screening 4 5-[address] [facility] Absolute lymphocyte countOrd ered By: Reese Shankar on 02-11-2022 Lymphocytes Auto (Unsp spec) [#/Vol] 1.50 10*3/uL 0.83-4.[address] [facility] Basophil percentageOrdered B y: Reese Shankar on 02-11-2022 Basophils/100 WBC (Bld) 0.4 % 0-[address] [facility] Chloride [Moles/Vol] 102 mmol/L 98-107 [facility] Eosinophils/100 WBC (Bld) 1.7 % 0-[address] [facility] Glucose [Mass/Vol] 153 mg/dL 74-106 [facility] Comment on above: Fasting Glucose resu lt greater than or equal to 126 mg/dL suggests DIABETES MELLITUS per A.D.A. criteria. Neutrophils (Bld) [#/Vol] 10.0 10*3/uL 2.0-7.[address] [facility] Neutrophils/100 WBC (Bld) 79.1 % 47-[address] [facility] Potassium [Moles/Vol] 3.9 mmol/L 3.5-5.1 [facility] Sodium [Moles/Vol] 138 mmol/L 136-145 [facility] WBC (Bld) [#/Vol] 12.7 10*3/uL 4.4-11.0 [facility] Blood erythrocytes count (nu mber/volume)Ordered By: Reese Shankar on 02-11-2022 RBC (Bld) [#/Vol] 4.24 10*6/uL 4.2-5.4 [facility] Blood hemoglobin measurement (mass/volume)Ordered By: Reese Shankar on 02-11-2022 Hemoglobin (Bld) [Mass/Vol] 12.8 g/dL 12.0-15.[address] [facility] Blood lymphocytes/100 leukoc ytesOrdered By: Reese Shankar on 02-11-2022 Lymphocytes/100 WBC (Bld) 11.8 % 19-[address] [facility] Blood monocytes/100 leukocyt esOrdered By: Reese Shankar on 02-11-2022 Monocytes/100 WBC (Bld) 6.7 % 0-10 [facility] Blood platelet mean volumeOr dered By: Reese Shankar on 02-11-2022 Platelet mean volume (Bld) [Entitic vol] 11.0 fL 6.2-12.[address] [facility] Determination of erythrocyte mean corpuscular volume (MCV)Ordered By: Reese Shankar on 02-11-2022 MCV (RBC) [Entitic vol] 91.7 fL 81-99 [facility] Hematocrit Auto (Bld) [Volum e fraction]Ordered By: Reese Shankar on 02-11-2022 Hematocrit (Bld) [Volume fraction] 38.9 % 37-[address] [facility] INR in Blood by Coagulation assayOrdered By: Reese Shankar on 02-11-2022 INR Coag (Bld) [Relative time] 2.7 {INR} [facility] Laboratory - Chemistry and C hemistry - challengeOrdered By: Reese Shankar on 02-11-2022 CO2 [Moles/Vol] 26.0 mmol/L 21.0-32.[address] [facility] Magnesium [Mass/Vol] 2.2 mg/dL 1.6-2.6 [facility] Urea nitrogen/Creatinine [Mass ratio] 18.5 mg/mg 10-[address] [facility] Laboratory - CoagulationOrde red By: Reese Shankar on 02-11-2022 PT Coag (PPP) [Time] 28.0 s 11.7-14.9 [facility] Laboratory - Hematology and Cell countsOrdered By: Reese Shankar on 02-11-2022 Erythrocyte distribution width (RBC) [Entitic vol] 43.5 fL 35.1-43.9 [facility] Erythrocyte distribution width (RBC) [Ratio] 12.9 % 11.6-14.[address] [facility] Immature granulocytes/100 WBC (Bld) 0.300 % 0.0-0.[address] [facility] Comment on above: IG% - Immature Granu locytes (promyelocytes, myelocytes and metamyelocytes) > 1% indicates that a LEFT SHIFT is Present. MCH (RBC) [Entitic mass] 30.2 pg 27.0-32.[address] [facility] Nucleated RBC/100 WBC (Bld) [Ratio] 0 % 0-[address] [facility] MCHC Auto (RBC) [Mass/Vol]Or dered By: Reese Shankar on 02-11-2022 MCHC (RBC) [Mass/Vol] 32.9 g/dL 32-36 [facility] No Panel InformationOrdered By: Reese Shankar on 02-11-2022 Estimated Creatinine Clearance Calc 19.31 ml/min [facility] Estimated GFR (MDRD) Amer 36 mL/min >[address] [facility] Comment on above: GFR Calc Estimated GFR (MDRD) Non-Af Amer 30 mL/min >[address] [facility] Comment on above: Non- GFR Calc Troponin I High Sensitivity 13 pg/mL 3.0-54.[address] [facility] Comment on above: Please Note: New Evon t Units and Gender Specific Reference Ranges. For more information see Policy Stat Procedure [place] High Sensitivity Troponin (TNIH) and attachments. Platelets bldOrdered By: Dontae Shankar on 02-11-2022 Platelets (Bld) [#/Vol] 286 10*3/uL 150-[address] [facility] Serum or plasma calcium viktoria urement (mass/volume)Ordered By: Reese Shankar on 02-11-2022 Calcium [Mass/Vol] 9.1 mg/dL 8.5-10.1 [facility] Serum or plasma creatinine m easurement (mass/volume)Ordered By: Reese Shankar on 02-11-2022 Creatinine [Mass/Vol] 1.73 mg/dL 0.55-1.02 [facility] Comment on above: The validity of the calculated GFR & GFRAA in patients over 70 years has not been determined. Clinical correlation is essential. Serum or plasma urea nitroge n measurement (mass/volume)Ordered By: Reese Shankar on 02-11-2022 Urea nitrogen [Mass/Vol] 32 mg/dL 7-[address] [facility] Thin prep Papanicolaou smear with manual screeningOrdered By: Reese Shankar on 02-11-2022 Thin prep Papanicolaou smear with manual screening 10 5-[address] [facility] CNPNon 10-14-2019 CNPN Telephone (AGCARDPOB ) EZRA GONZALEZ ([id number]) 1935 F Date Time Provider Department 10/14/19 [...] artery stent placement- 2006 [Z95*11/14/2015 Atherosclerosis of [place] coronary artery of na*11/14/2015 Asymptomatic cholelithiasis [K80.20] [...] by ELVER ACOSTA on 10/14/19 [facility] CNPTOUTREACHochastity 10-12-2019 [facility] ([facility]) EZRA GONZALEZ ([id number]) 1935 F Date Time Provider Department 10/12/19 SWATHI CRUZ) [facility] During your visit today, we recorded the following information about you: Swathi Cruz LPN, LPN 10/12/2019 10:48 AM Signed ED Follow Up: Patient discharged from [facility] ED on 10/11/2019 for Fall, rib [...] Visit: Transition Of Care [4074] Cmt: ED [facility] 10/11/2019 (Pt. has new pcp) Reason [...] artery stent placement- 2006 [Z95*11/14/2015 Atherosclerosis of [place] coronary artery of na*11/14/2015 Asymptomatic cholelithiasis [K80.20] [...] SWATHI CRUZ LPN on 10/12/19 [facility] OBSOLETEon 10-12-2019 OBSOLETE Refill ([facility]) EZRA GONZALEZ ([id number]) 1935 F Date Time Provider Department 10/12/19 JO PEREZ [facility] During your visit today, we recorded [...] Visit date not found Patient Phone numbers: [phone] (home) Request is for script(s) to be [...] artery stent placement- 2007 [Z95*11/14/2015 Atherosclerosis of [place] coronary artery of na*11/14/2015 Asymptomatic cholelithiasis [K80.20] [...] LYNN BENEDICT LPN on 11/11/19 [facility] PROGRESSon 10-12-2019 PROGRESS HNO ID: [id number] Author: Swathi Cruz LPN Service: ? Author Type: LICENSED NURSE Type: Progress Notes Filed: 10/12/2019 10:48 AM Note Text: ED Follow Up: Patient discharged from [facility] ED on 10/11/2019 for Fall, rib fracture Outreach # 1, Contact Made. Patient was called at this time. Patient verified by name and . Patient stated she has a new PCP Dr. Sada Doran who she will follow up with. Swathi Cruz LPN 10/12/2019 10:45 AM [facility] CNPMari 10-06-2019 CNPN Telephone ([facility]) LISAEZRA ([id number]) 1935 F Date Time Provider Department 10/06/19 [...] Date: 12/30/16 +++Patient gets lab draw at [facility] in [place] [phone]+++ PT INR Date Value Ref Range Status [...] (HCC) [I48.91] Order(s):PROTHROMBIN TIME/PT [SQPT] Order #: [id number] Prescriptions as of 10/06/2019 Sig: METOPROLOL SUCCINATE [...] artery stent placement- 2006 [Z95*11/14/2015 Atherosclerosis of [place] coronary artery of na*11/14/2015 Asymptomatic cholelithiasis [K80.20] [...] by BHAKTI (PHARMACIST)ESTEFANIA on 10/06/19 [facility] Bao 09-22-2019 CNPN Telephone ([facility]) EZRA GONZALEZ ([id number]) 1935 F Date Time Provider Department 09/22/19 JO PEREZ [facility] During your visit today, we recorded the following information about you: Maryanne Gomez MA 09/22/2019 10:38 AM Signed Patient is aware that you are going to be leaving the practice. She states she recently moved down to [place] and wants to find a physician closer to her Is there anyone that you recommend Maryanne Gomez MA 09/22/2019 10:37 AM Jo Perez MD 09/22/2019 12:[address] [facility] [place] [facility] Alicia Park LPN 09/22/2019 1:21 PM [...] Fully Assessed Reason for Visit: Patient Question [7582] Cmt: Physicans in [place] Prescriptions as of 09/22/2019 Sig: METOPROLOL [...] artery stent placement- 2006 [Z95*11/14/2015 Atherosclerosis [place] coronary artery of na*11/14/2015 Asymptomatic cholelithiasis [K80.20] [...] by ALICIA PARK on 09/22/19 [facility] Guido 09-22-[facility] EZRA GONZALEZ ([id number]) 1935 F Date Time Provider Department 09/22/19 MARYANNE GOMEZ) [facility] During your visit today, we recorded the following information about you: Maryanne Gomez MA 09/22/2019 10:34 AM Signed HIGH RISK [facility]RONIC DISEASE MON[facility]OR[facility] Provider Action/FYI: Patient doing well Contact made with patient: Yes Hi my name is Maryanne Gomez MA and I am calling from the [facility] on behalf of your PCP. I'm [...] like to speak with a social work call center team leader to help give you support for any [...] artery stent placement- 2006 [Z95*11/14/2015 Atherosclerosis of [place] coronary artery of na*11/14/2015 Asymptomatic cholelithiasis [K80.20] [...] Status:Closed by MARYANNE GOMEZ on 09/22/19 [facility] PROGRESSon 09-22-2019 PROGRESS HNO ID: [id number] Author: Maryanne Perea) Miguel Service: ? Author Type: Web Application Tester Type: Progress Notes Filed: 09/22/2019 10:34 AM Note Text: HIGH RISK CHRONIC DISEASE MONITORING - [facility] Provider Action/FYI: Patient doing well Contact made with patient: Yes Hi my name is Maryanne Gomez MA and I am calling from the [facility] on behalf of your PCP. I'm [...] like to speak with a social work call center team leader to help give you support for any [...] Gomez MA 09/22/2019 10:33 AM [facility] SUZITOUTREACHochastity 09-21-2019 [facility] ([facility]) EZRA GONZALEZ ([id number]) 1935 F Date Time Provider Department 09/21/19 JO PEREZ [facility] During your visit today, we recorded the following information about you: Alicia Park LPN 09/21/2019 10:43 AM Signed HIGH RISK CHRONIC DISEASE MONITORING - [facility] Provider Action/FYI: Contact made with patient: No - Left 1st message - Hi my name is Alicia Park LPN and I am calling from the [facility] on behalf of your PCP, Jo [...] artery stent placement- 2006 [Z95*11/14/2015 Atherosclerosis [place] coronary artery of na*11/14/2015 Asymptomatic cholelithiasis [K80.20] [...] by ALICIA PARK on 09/21/19 [facility] PROGRESSon 09-21-2019 PROGRESS HNO ID: [id number] Author: Alicia Park Service: ? Author Type: LICENSED NURSE Type: Progress Notes Filed: 09/21/2019 10:43 AM Note Text: HIGH RISK CHRONIC DISEASE MONITORING - [facility] Provider Action/FYI: Contact made with patient: No - Left 1st message - Hi my name is Alicia Park LPN and I am calling from the [facility] on behalf of your PCP, Jo [...] outreach.) Outreach ended [facility] CNPNon 09-02-2019 CNPN Telephone ([facility]) EZRA GONZALEZ ([id number]) 1935 F Date Time Provider Department 09/02/19 [...] Date: 12/30/16 +++[facility] [place] [phone]+++ PT INR Date Value Ref Range Status [...] Patient will have next INR drawn at [facility] in [place] next month. Order placed. Estefania Cevallos, JpD [...] (HCC) [I48.91] Order(s):PROTHROMBIN TIME/PT [SQPT] Order #: [id number] PROTHROMBIN TIME/PT [SQPT] Order #: [id number] STANDING Prescriptions as of 09/02/2019 Sig: METOPROLOL [...] artery stent placement- 2006 [Z95*11/14/2015 Atherosclerosis [place] coronary artery of na*11/14/2015 Asymptomatic cholelithiasis [K80.20] [...] by BHAKTI (PHARMACIST)ESTEFANIA on 09/03/19 [facility] CNPTOUTREACHon 08-12-2019 [facility] Patient Outreach ([facility]) EZRA GONZALEZ ([id number]) 1935 F Date Time Provider Department 08/12/19 MARYANNE GOMEZ) [facility] During your visit today, we recorded the following information about you: Maryanne Gomez MA 08/12/2019 9:39 AM Signed HIGH RISK CHRONIC DISEASE MONITORING - [facility] Provider Action/FYI: Left 2nd message, will add patient to schedule for a month Contact made with patient: No, Left 2nd message - Hi my name is Maryanne Gomez MA and I am calling from the [facility] on behalf of your PCP, Jo [...] artery stent placement- 2006 [Z95*11/14/2015 Atherosclerosis [place] coronary artery of na*11/14/2015 Asymptomatic cholelithiasis [K80.20] [...] by MARYANNE GOMEZ on 08/12/19 [facility] PROGRESSon 08-12-2019 PROGRESS HNO ID: [id number] Author: Maryanne Gomez Service: ? Author Type: Web Application Tester Type: Progress Notes Filed: 08/12/2019 9:39 AM Note Text: HIGH RISK CHRONIC DISEASE MONITORING - [facility] Provider Action/FYI: Left 2nd message, will add patient to schedule for a month Contact made with patient: No, Left 2nd message - Hi my name is Maryanne Gomez MA and I am calling from the [facility] on behalf of your PCP, Jo [...] Gomez MA 08/12/2019 9:38 AM [facility] CNPTOUTREACHochastity 08-11-2019 [facility]) LISAEZRA ([id number]) 1935 F Date Time Provider Department 08/11/19 MARYANNE GOMEZ) [facility] During your visit today, we recorded the following information about you: Maryanne Gomez MA 08/11/2019 10:02 AM Signed HIGH RISK CHRONIC DISEASE MONITORING - [facility] Provider Action/FYI: Left message, will add to schedule for tomorrow Contact made with patient: No - Left 1st message - Hi my name is Maryanne Gomez MA and I am calling from the [facility] on behalf of your PCP, Jo [...] artery stent placement- 2006 [Z95*11/14/2015 Atherosclerosis [place] coronary artery of na*11/14/2015 Asymptomatic cholelithiasis [K80.20] [...] by MARYANNE GOMEZ on 08/11/19 [facility] PROGRESSon 08-11-2019 PROGRESS HNO ID: [id number] Author: Maryanne Gomez Service: ? Author Type: Web Application Tester Type: Progress Notes Filed: 08/11/2019 10:02 AM Note Text: HIGH RISK CHRONIC DISEASE MONITORING - [facility] Provider Action/FYI: Left message, will add to schedule for tomorrow Contact made with patient: No - Left 1st message - Hi my name is Maryanne Gomez MA and I am calling from the [facility] on behalf of your PCP, Jo [...] Gomez MA 08/11/2019 10:01 AM [facility] OBSOLETEon 08-05-2019 OBSOLETE Refill (AGCARDPOB) EZRA GONZALEZ ([id number]) 1935 F Date Time Provider Department 08/05/19 [...] Prescription(s) as above. Please process accordingly. Lynette ([employer] Installer) Sharad Allergies As of Date: 08/05/2019 Noted [...] artery stent placement- 2006 [Z95*11/14/2015 Atherosclerosis [place] coronary artery of na*11/14/2015 Asymptomatic cholelithiasis [K80.20] [...] by LYNETTE OROURKE on 08/05/19 [facility] CNPTOUTREACHochastity 08-04-2019 CNPTOUTREACH Patient Outreach ([facility]) EZRA GONZALEZ ([id number]) 1935 F Date Time Provider Department 08/04/19 MARYANNE GOMEZ) [facility] During your visit today, we recorded the following information about you: Maryanne REGI Gomez 08/04/2019 11:03 AM Signed HIGH RISK CHRONIC DISEASE MONITORING - [facility] Provider Action/FYI: Patient has no questions or concerns at this time Contact made with patient: Yes Hi my name is Maryanne REGI Gomez and I am calling from the [facility] on behalf of your PCP. I'm calling to speak with Ezra Gonazlez. Patient identified by name and . Discussed [...] like to speak with a social work call center team leader to help give you support for any [...] artery stent placement- 2006 [Z95*11/14/2015 Atherosclerosis of [place] coronary artery of na*11/14/2015 Asymptomatic cholelithiasis [K80.20] [...] Status:Closed by MARYANNE GOMEZ on 08/04/19 [facility] PROGRESSon 08-04-2019 PROGRESS HNO ID: [id number] Author: Maryanne Gomez Service: ? Author Type: Web Application Tester Type: Progress Notes Filed: 08/04/2019 11:03 AM Note Text: HIGH RISK CHRONIC DISEASE MONITORING - [facility] Provider Action/FYI: Patient has no questions or concerns at this time Contact made with patient: Yes Hi my name is Maryanne Gomez MA and I am calling from the [facility] on behalf of your PCP. I'm [...] like to speak with a social work call center team leader to help give you support for any [...] OBSOLETEon 08-03-2019 OBSOLETE Refill (AGCARDPOB) EZRA GONZALEZ ([id number]) 1935 F Date Time Provider Department 08/03/19 [...] artery stent placement- 2006 [Z95*11/14/2015 Atherosclerosis [place] coronary artery of na*11/14/2015 Asymptomatic cholelithiasis [K80.20] [...] KATYA WELLS CNP on 08/03/19 [facility] SUZITOLOUEAJourdan 07-28-2019 [facility]reach ([facility]) EZRA GONZALEZ ([id number]) 1935 F Date Time Provider Department 07/28/19 MARYANNE GOMEZ) [facility] During your visit today, we recorded the following information about you: Maryanne Gomez MA 07/28/2019 3:18 PM Signed HIGH RISK CHRONIC DISEASE MONITORING - [facility] Provider Action/FYI: Patient wants to [...] MA and I am calling from the [facility] on behalf of your PCP. I'm [...] like to speak with a social work call center team leader to help give you support for any [...] Please report her afib episode to her associate financial planner (you can just route this chart to [...] use of insulin (HCC) [E11.9] Order(s):HGB A1C [OSXKE1H] Order #: [id number] FUTURE LIPID PANEL BASIC [SQLIPB] Order #: [id number] FUTURE COMP METABOLIC PANEL [SQCMP] Order #: [id number] FUTURE ALBUMIN QUANT 24H UR [SQUALBQ] Order #: [id number] FUTURE Prescriptions as of 07/28/2019 Sig: SIMVASTATIN [...] artery stent placement- 2006 [Z95*11/14/2015 Atherosclerosis [place] coronary artery of na*11/14/2015 Asymptomatic cholelithiasis [K80.20] [...] by JO PEREZ on 07/28/19 [facility] OBSOLETEon 07-28-2019 OBSOLETE Refill (AGCARDHWG) EZRA GONZALEZ ([id number]) 1935 F Date Time Provider Department 07/28/19 [...] artery stent placement- 2006 [Z95*11/14/2015 Atherosclerosis [place] coronary artery of na*11/14/2015 Asymptomatic cholelithiasis [K80.20] [...] ARCELIA LOCKETT CNP on 07/28/19 [facility] PROGRESSon 07-28-2019 PROGRESS HNO ID: [id number] Author: Maryanne Gomez Service: ? Author Type: Web Application Tester Type: Progress Notes Filed: 07/28/2019 3:18 PM [...] Gomez MA 07/28/2019 3:05 PM [facility] PROGRESS HNO ID: [id number] Author: Jo Perez Service: ? Author Type: Physician Type: Progress Notes Filed: 07/28/2019 3:18 PM Note Text: Please report her afib episode to her associate financial planner (you can just route this chart to [...] labs done prior to her visit [facility] PROGRESS HNO ID: [id number] Author: Maryanne Gomez Service: ? Author Type: Web Application Tester Type: Progress Notes Filed: 07/28/2019 3:18 PM Note Text: HIGH RISK CHRONIC DISEASE MONITORING - [facility] Provider Action/FYI: Patient wants to know [...] MA and I am calling from the [facility] on behalf of your PCP. I'm [...] like to speak with a social work call center team leader to help give you support for any [...] [facility] OBSOLETEon 07-14-2019 [facility] LIS[facility] ([id number]) 1935 F Date Time Provider Department 07/14/19 [...] Visit date not found Patient Phone numbers: [phone] (home) Request is for script(s) to be [...] artery stent placement- 2006 [Z95*11/14/2015 Atheros[place] coronary artery of na*11/14/2015 Asymptomatic cholelithiasis [K80.20] [...] by JO PEREZ on 07/14/19 [facility] OBSOLETE Refill (AGCARDPOB) EZRA GONZALEZ ([id number]) 1935 F Date Time Provider Department 07/14/19 [...] artery stent placement- 2006 [Z95*11/14/2015 Atherosclerosis [place] coronary artery of na*11/14/2015 Asymptomatic cholelithiasis [K80.20] [...] RICKEY CHAVARRIA MD on 07/14/19 [facility] Bao 07-12-2019 CNPN Telephone ([facility]) EZRA GONZALEZ ([id number]) 1935 F Date Time Provider Department 07/12/19 [facility] AGINTMAC During your visit today, we recorded [...] Date: 12/30/16 +++Patient gets lab draw at [facility] in [place] [phone]+++ PT INR Date Value Ref Range Status [...] (HCC) [I48.91] Order(s):PROTHROMBIN TIME/PT [SQPT] Order #: [id number] Prescriptions as of 07/12/2019 Sig: LISINOPRIL 5 [...] artery stent placement- 2006 [Z95*11/14/2015 Atherosclerosis [place] coronary artery of na*11/14/2015 Asymptomatic cholelithiasis [K80.20] [...] by BHAKTI (PHARMACIST)ESTEFANIA on 07/12/19 [facility] OBSOLETEon 07-05-2019 OBSOLETE Refill ([facility]) EZRA GONZALEZ ([id number]) 1935 F Date Time Provider Department 07/05/19 JO PEREZ [facility] During your visit today, we recorded [...] Patient next appointment: 07/28/2019 Patient Phone numbers: [phone] (home) Request is for script(s) to be escript to pharmacy. MYRIMA Lovelace 07/13/2019 11:23 AM Signed Pharmacy called [...] artery stent placement- 2006 [Z95*11/14/2015 Atherosclerosis [place] coronary artery of na*11/14/2015 Asymptomatic cholelithiasis [K80.20] [...] PATITO WILSON CNP on 07/05/19 [facility] OBSOLETEon 07-01-2019 OBSOLETE Refill ([facility]) EZRA GONZALEZ ([id number]) 1935 F Date Time Provider Department 07/01/19 JO PEREZ [facility] During your visit today, we recorded the following information about you: Robert Diaz CMA 07/01/2019 9:20 AM Signed Patient called requesting the following refill. Pending Prescriptions Disp Refills RANITIDINE 150 MG TABLET 90 tablet 0 Sig: Take 1 tablet by mouth once daily. SHAHEEN: No Last refill: 03/18/2019 Patient last appointment: 06/10/2019 Patient next appointment: 07/28/2019 Patient Phone numbers: [phone] (home) Request is for script(s) to be [...] artery stent placement- 2006 [Z95*11/14/2015 Atherosclerosis [place] coronary artery of na*11/14/2015 Asymptomatic cholelithiasis [K80.20] [...] by JO PEREZ on 07/01/19 [facility] 06-10-2019 [facility] Telephone ([facility]) EZRA GONZALEZ ([id number]) 1935 F Date Time Provider Department 06/10/19 [...] artery stent placement- 2006 [Z95*11/14/2015 Atherosclerosis [place] coronary artery of na*11/14/2015 Asymptomatic cholelithiasis [K80.20] [...] SWATHI CRUZ LPN on 06/10/19 [facility] 06-07-2019 [facility] Telephone ([facility]) EZRA GONZALEZ ([id number]) 1935 F Date Time Provider Department 06/07/19 [...] Date: 12/30/16 +++Patient gets lab draw at [facility] in [place] [phone]+++ PT INR Date Value Ref Range Status [...] (HCC) [I48.91] Order(s):PROTHROMBIN TIME/PT [SQPT] Order #: [id number] Prescriptions as of 06/07/2019 Sig: COQ-10 ORAL [...] artery stent placement- 2006 [Z95*11/14/2015 Atherosclerosis of [place] coronary artery of na*11/14/2015 Asymptomatic cholelithiasis [K80.20] [...] by BHAKTI (PHARMACIST)ESTEFANIA on 06/07/19 [facility] 06-04-2019 CNPN Telephone (SARITHAMAC) EZRA GONZALEZ ([id number]) 1935 F Date Time Provider Department 06/04/19 [...] artery stent placement- 2006 [Z95*11/14/2015 Atherosclerosis of [place] coronary artery of na*11/14/2015 Asymptomatic cholelithiasis [K80.20] [...] Encounter Status:Closed by BHAKTI (PHARMACIST)ESTEFANIA [facility]04[facility] Office Visit (AGHWW1 ) EZRA GONZALEZ ([id number]) 1935 F Date Time Provider Department 05/13/19 4:00 PM CRUZ SANCHEZ AGHWW1 During your visit today, we recorded the following information about you: Respiration Weight Height 18/minute 82.6 kg 1.613 m Cruz Sanchez MD 05/13/2019 5:00 PM Signed HISTORY OF PRESENT ILLNESS: Ezra Gonzalez is an 83-year-old qthrn-qkuv-dhtlbcue female who returns for follow-up right shoulder [...] associated with diabetes mellitus (HCC) - Old DE (myocardial infarction) 2006 - On anticoagulant therapy - On superintendent terminal drug therapy - Osteoarthritis - Peripheral venous [...] R Shoulder CARDIOVASCULAR: Peripheral venous insufficiency, h/o DE, HTN, Coronary Arteriosclerosis, A-Fib, Cardiac Ablation MSK: [...] [Z98.890] Order(s):Large Joint Arthro/Inj: R subacromial bursa [UUR696] Order #: [id number] betamethasone acetate-betamethasone sodium phosphate 12 mg injection [...] artery stent placement- 2006 [Z95*11/14/2015 Atherosclerosis of [place] coronary artery of na*11/14/2015 Asymptomatic cholelithiasis [K80.20] [...] CRUZ SANCHEZ MD on 05/13/19 [facility] PROGRESSon 05-13-2019 PROGRESS HNO ID: [id number] Author: Cruz Sanchez Service: ? Author Type: Physician Type: Progress Notes Filed: 05/13/2019 5:00 PM Note Text: HISTORY OF PRESENT ILLNESS: Ezra Gonzalez is an 83-year-old rcewh-atwh-xrghuzgm female who returns for follow-up right shoulder [...] associated with diabetes mellitus (HCC) - Old DE (myocardial infarction) 2006 - On anticoagulant therapy - On chcf drug therapy - Osteoarthritis - Peripheral venous [...] R Shoulder CARDIOVASCULAR: Peripheral venous insufficiency, h/o DE, HTN, Coronary Arteriosclerosis, A-Fib, Cardiac Ablation MSK: [...] as needed. Cruz Sanchez MD [facility] CNOVon 04-27-2019 [facility] Office Visit ([facility]) EZRA GONZALEZ ([id number]) 1935 F Date Time Provider Department 04/27/19 3:40 PM JO PEREZ [facility] During your visit today, we recorded [...] coronary artery stent placement- 2006 Atherosclerosis of [place] Coronary Artery of [place] Heart Without Angina Pectoris Asymptomatic Cholelithiasis History [...] Gonzalez Podiatry 05/19/2015 End 05/19/15 Nirmal Kemp EMPLOYMENT LEGAL ASSISTANT 07/07/2017 End 07/07/17 ; Mohan Álvarez Ophthalmology 07/07/2017 End 07/07/17 Rickey Chavarria Cardiology 09/30/2018 End 09/30/18 ; End of Live Planning discussed including patients advanced directive wishes: Yes I am willing to follow advanced directives. Mini-Cog Patient asked to remember the following three words: Banana, [place] and Chair Visuospatial/Executiv e Functioning: Clock drawin/2 [...] No history of dysuria, frequency or incontinence MANAGER ACTUARIAL: Negative for abnormal vaginal bleeding, abnormal vaginal [...] with supplements or by diet (goal of 1259-8535 mg/day - Discussed need and benefit for [...] - Discussed diabetic education issues of superintendent terminal diabetic complications, hypoglycemic symptoms, hyperglycemic symptoms, diet, [...] prepared fairly simply. If you were a isuh-thv-eoqovnws eater, focus on the meat more than [...] your kitchen up for success. Always have csm-hxnt-obymgxtl foods on hand ready to eat. Remove [...] unspecified type [R19.7] Order(s):ADMIN OF INFLUENZA VACCINE [[id number]] Order #: [id number]: 1 INFLUENZA SEASONAL HIGH DOSE AGE 65+ [30664GIT] Order #: [id number] metFORMIN (GLUCOPHAGE) 500 mg tabletTake 1 tablet by mouth daily with breakfast.Disp: Rfl: HGB A1C [RHXKZ1C] Order #: [id number] FUTURE COMP METABOLIC PANEL [SQCMP] Order #: [id number] FUTURE Prescriptions as of 04/27/2019 Sig: COQ-10 [...] artery stent placement- 2006 [Z95*11/14/2015 Atherosclerosis of [place] coronary artery of na*11/14/2015 Asymptomatic cholelithiasis [K80.20] [...] prepared fairly simply. If you were a ehjh-wpn-cexezojn eater, focus on the meat more than [...] your kitchen up for success. Always have pve-izpq-lyfoxeso foods on hand ready to eat. Remove [...] Status:Closed by JO PEREZ on 04/27/19 [facility] PROGRESSon 04-27-2019 PROGRESS HNO ID: [id number] Author: Jo Perez Service: ? Author Type: [...] coronary artery stent placement- 2006 Atherosclerosis of [place] Coronary Artery of [place] Heart Without Angina Pectoris Asymptomatic Cholelithiasis History [...] Gonzalez Podiatry 05/19/2015 End 05/19/15 Nirmal Kemp EMPLOYMENT LEGAL ASSISTANT 07/07/2017 End 07/07/17 ; Mohan Álvarez Ophthalmology 07/07/2017 End 07/07/17 Rickey Duffy Chavarria Cardiology 09/30/2018 End 09/30/18 ; End of Live Planning discussed including patients advanced directive wishes: Yes I am willing to follow advanced directives. Mini-Cog Patient asked to remember the following three words: Banana, [place] and Chair Visuospatial/Executiv e Functioning: Clock drawin/2 [...] No history of dysuria, frequency or incontinence MANAGER ACTUARIAL: Negative for abnormal vaginal bleeding, abnormal vaginal [...] with supplements or by diet (goal of 7926-2711 mg/day - Discussed need and benefit for [...] - Discussed diabetic education issues of superintendent terminal diabetic complications, hypoglycemic symptoms, hyperglycemic symptoms, diet, [...] screening - Lipid panel Jo Perez MD [facility] 03-18-2019 [facility] Office Visit (AGHWW1 ) EZRA GONZALEZ ([id number]) 1935 F Date Time Provider Department 03/18/19 4:00 PM CRUZ SANCHEZ HWW1 During your visit today, we recorded the following information about you: Respiration Weight Height 17/minute 80.7 kg 1.651 m Cruz Sanchez MD 03/18/2019 7:00 PM Signed HISTORY OF PRESENT ILLNESS: Ezra Gonzalez is an 83-year-old rtjhb-zxww-lolkqehi female who returns for follow-up right shoulder [...] and strength with continued physical therapy in [place]. She is currently using the yellow to [...] associated with diabetes mellitus (HCC) - Old DE (myocardial infarction) 2006 - On anticoagulant therapy - On superintendent terminal drug therapy - Osteoarthritis - Peripheral venous [...] artery stent placement- 2006 [Z95*11/14/2015 Atherosclerosis of [place] coronary artery of na*11/14/2015 Asymptomatic cholelithiasis [K80.20] [...] CRUZ SANCHEZ MD on 03/18/19 [facility] PROGRESSon 03-18-2019 PROGRESS HNO ID: [id number] Author: Cruz Sanchez Service: ? Author Type: Physician Type: Progress Notes Filed: 03/18/2019 7:00 PM Note Text: HISTORY OF PRESENT ILLNESS: Ezra Gonzalez is an 83-year-old yxbcw-refi-qjprpdmy female who returns for follow-up right shoulder [...] and strength with continued physical therapy in [place]. She is currently using the yellow to [...] associated with diabetes mellitus (HCC) - Old DE (myocardial infarction) 2006 - On anticoagulant therapy - On superintendent terminal drug therapy - Osteoarthritis - Peripheral venous [...] as needed. Cruz Sanchez MD [facility] OBSOLETEon 03-17-2019 OBSOLETE Refill ([facility]) EZRA GONZALEZ ([id number]) 1935 F Date Time Provider Department 03/17/19 VIPUL BUCHANAN ([employer] During your visit today, we recorded [...] Visit date not found Patient Phone numbers: [phone] (home) Request is for script(s) to be [...] artery stent placement- 2006 [Z95*11/14/2015 Atherosclerosis of [place] coronary artery of na*11/14/2015 Asymptomatic cholelithiasis [K80.20] [...] by JO PEREZ on 03/18/19 [facility] EZRA GONZALEZ ([id number]) 1935 F Date Time Provider Department 03/17/19 JO PEREZ [facility] During your visit today, we recorded the following information about you: Anne Marie Hobbs Reg 03/18/2019 7:41 AM Signed Pharmacy faxed requesting the following refill. Pending Prescriptions Disp Refills RANITIDINE 150 MG TABLET 90 tablet 0 Sig: TAKE ONE TABLET BY MOUTH EVERY DAY SHAHEEN: Yes Last refill: 12/16/2018 Patient last appointment: 09/30/2018 Patient next appointment: 04/02/2019 Patient Phone numbers: [phone] (home) Request is for script(s) to be [...] artery stent placement- 2006 [Z95*11/14/2015 Atherosclerosis of [place] coronary artery of na*11/14/2015 Asymptomatic cholelithiasis [K80.20] [...] by JO PEREZ on 03/18/19 [facility] CNOVon 02-04-2019 CNOV Office Visit (AGHWW1 ) EZRA GONZALEZ ([id number]) 1935 F Date Time Provider Department 02/04/19 1:30 PM CRUZ SANCHEZ AGHWW1 During your visit today, we recorded the following information about you: Respiration Weight Height 17/minute 80.7 kg 1.676 m Cruz Sanchez MD 02/04/2019 4:40 PM Signed HISTORY OF PRESENT ILLNESS: Ezra Gonzalez was provided orthopedic evaluation regarding right shoulder complaints. Patient is an 83-year-old susfm-tpvx-szghmydb female who is previously known status post [...] associated with diabetes mellitus (HCC) - Old DE (myocardial infarction) 2006 - On anticoagulant therapy - On chcf drug therapy - Osteoarthritis - Peripheral venous [...] conditions CARDIOVASCULAR: A-Fib, Coronary Arteriosclerosis, HTN, Old [place], Peripheral Venous Inufficiency, MSK: Degenerative Joint Disease, [...] GENERAL 3V OR MORE AP/TRUE AP/OTHER RT [[id number]] Order #: [id number] CONSULT TO PHYSICAL THERAPY (AG) [8442355] Order #: [id number]: 1 DRAIN/INJECT LARGE JOINT/BURSA [62951OHC] Order #: [id number] [] betamethasone acetate-betamethasone sodium phosphate 12 mg [...] stent placement- 2006 [Z95*INVALID FOR* Atherosclerosis of [place] coronary artery of na*INVALID FOR* Asymptomatic cholelithiasis [...] CRUZ SANCHEZ MD on 02/04/19 [facility] PROGRESSon 02-04-2019 PROGRESS HNO ID: [id number] Author: Cruz Sanchez Service: ? Author Type: Physician Type: Progress Notes Filed: 02/04/2019 4:40 PM Note Text: HISTORY OF PRESENT ILLNESS: Ezra Gonzalez was provided orthopedic evaluation regarding right shoulder complaints. Patient is an 83-year-old apdvr-jftw-ovtbyiud female who is previously known status post [...] associated with diabetes mellitus (HCC) - Old DE (myocardial infarction) 2006 - On anticoagulant therapy - On chcf drug therapy - Osteoarthritis - Peripheral venous [...] conditions CARDIOVASCULAR: A-Fib, Coronary Arteriosclerosis, HTN, Old DE, Peripheral Venous Inufficiency, MSK: Degenerative Joint Disease, [...] medical candidate. Cruz Sanchez MD [facility] OBSOLETEon 01-21-2019 OBSOLETE Refill (AGCARDPOB) EZRA GONZALEZ ([id number]) 1935 F Date Time Provider Department 01/21/19 [...] Myalgias Date Reviewed: 11/27/2018 Reviewed by: Vika ([facility]) Brian - Fully Assessed Reason for Visit: [...] stent placement- 2006 [Z95*INVALID FOR* Atherosclerosis of [place] coronary artery of na*INVALID FOR* Asymptomatic cholelithiasis [...] RICKEY CHAVARRIA MD on 01/21/19 [facility] OBSOLETE Refill ([facility]) EZRA GONZALEZ ([id number]) 1935 F Date Time Provider Department 01/21/19 JO PEREZ [facility] During your visit today, we recorded the following information about you: Anne Marie Anjel Reg 01/21/2019 12:05 PM Signed Pharmacy faxed requesting the following refill. Pending Prescriptions Disp Refills FUROSEMIDE 20 MG TABLET 90 tablet 2 Sig: TAKE ONE TABLET BY MOUTH ONCE DAILY SHAHEEN: Yes Last refill: 01/05/2018 Patient last appointment: 09/30/2018 Patient next appointment: 04/02/2019 Patient Phone numbers: [phone] (home) Request is for script(s) to be [...] Myalgias Date Reviewed: 11/27/2018 Reviewed by: [facility] Brian - Fully Assessed Reason for Visit: [...] stent placement- 2006 [Z95*INVALID FOR* Atherosclerosis of [place] coronary artery of na*INVALID FOR* Asymptomatic cholelithiasis [...] by JO PEREZ on 01/21/19 [facility] CNTHERAPYon 12-14-2018 CNTHERAPY OT/PT/Speech Visit ([facility]) EZRA GONZALEZ ([id number]) 1935 F Date Time Provider Department 12/14/18 11:00 AM ANOOP COLLAZO (AUD) [facility] Date Time Provider Department Center 12/14/2018 11:00 AM [id number], SHARON (*[facility] NOLAN LONG Reason for Visit: Difficulty In Hearing In Noise [1113] Cmt: noted x 1-2 yrs Speech Discharge [0628] Cmt: AUDIOLOGY DISCHARGED 12-14-18 Reason For Visit [...] Myalgias Date Reviewed: 11/27/2018 Reviewed by: Vika ([facility]) Brian - Fully Assessed Prescriptions as of [...] AUD 12/14/2018 4:44 PM Signed [facility] OUTPATIENT AUDIOLOGY SERVICES AUDIOLOGIC EVALUATION REPORT 12/14/2018 Page 1 of 3 Patient: Ezra Snell Lisa : 1935 Referred by: Jo Perez (PCP: Yazmin) Referred for: Evaluation of suspected change in hearing, tinnitus, or balance. Referral documented: In an order in [facility]: OTHER ORDERS: : CONSULT TO AUDIOLOGY FOR DIAGNOSTIC TESTING [9003] (Order [id number]) Patient's major complaints: Progressively increasing difficulty in [...] --Pure tone audiometry using insert earphones demonstrates qyap-ee-jvmevpovjg severe level sensorineural type hearing loss, worse [...] up w/ referring physician. Report routed via Progen[employer] inbox to Dr. Perez on 12/14/2018 -Re-evaluation [...] Audiogram can be also be viewed in digitalbox SmartForms:Audiology: Audiometry. OAE and tympanometry results can be viewed in [facility] Scanned Documents. RIGHT EAR Hearing Sensitivity: 250-500HZ: WNL; 750-2000Hz:mild; 3000-8000Hz: moderate-severe SNHL Word Recognition Score (order by difficulty 10 word list): Excellent (90%) at slt amplified loudness (fair at conversational loudness) Tympanometry: Type A : Normal ME function. Otoacoustic Emissions results: 750-3000Hz: WNL; 4493-9237: reduced; 8000Hz: absent. LEFT EAR Hearing Sensitivity: 250-500HZ: WNL; 750-3000Hz: moderate; 6000-8000Hz: severe SNHL Word Recognition Score (order by difficulty 10 word list): Excellent (90%) at amplified loudness (poor at conversational loudness) Tympanometry: Type A : Normal ME function. Otoacoustic Emissions results: 750-1000Hz: absent; 8091-2804: reduced; 6000-8000Hz: absent. William Hinson. [employer] 12/14/2018 3:30 PM Ezra Gonzalez : 1935 [...] eval. Follow-up and Disposition History Recorded Classic Relativity TechnologiesForms filed during this visit: Audiometry Letter Text Normal [facility] OBSOLETEon 12-14-2018 OBSOLETE Refill ([facility]) EZRA GONZALEZ ([id number]) 1935 F Date Time Provider Department 12/14/18 JO PEREZ [facility] During your visit today, we recorded the following information about you: Robert Diaz CMA 12/16/2018 1:00 PM Signed Patient called requesting the following refill. Pending Prescriptions Disp Refills RANITIDINE 150 MG TABLET 90 tablet 0 Sig: TAKE ONE TABLET BY MOUTH EVERY DAY SHAHEEN: Yes Last refill: 09/16/2018 Patient last appointment: 10/20/2018 Patient next appointment: 04/02/2019 Patient Phone numbers: [phone] (home) Request is for script(s) to be [...] Myalgias Date Reviewed: 11/27/2018 Reviewed by: [facility] Brian - Fully Assessed Reason for Visit: [...] stent placement- 2006 [Z95*INVALID FOR* Atherosclerosis of [place] coronary artery of na*INVALID FOR* Asymptomatic cholelithiasis [...] Status:Closed by JO PEREZ on 12/16/18 [facility] PROGRESSon 12-14-2018 PROGRESS HNO ID: [id number] Author: Anoop Crisostomo) JAZMYN Collazo Service: ? Author Type: [employer] Type: Progress Notes Filed: 12/14/2018 4:44 PM Note Text: [facility] OUTPATIENT AUDIOLOGY SERVICES AUDIOLOGIC EVALUATION REPORT 12/14/2018 Page 1 of 3 Patient: Ezra Gonzalez : 1935 Referred by: Jo Perez (PCP: Yazmin) Referred for: Evaluation of suspected change in hearing, tinnitus, or balance. Referral documented: In an order in Epic: OTHER ORDERS: : CONSULT TO AUDIOLOGY FOR DIAGNOSTIC TESTING [9003] (Order [id number]) Patient's major complaints: Progressively increasing difficulty in [...] --Pure tone audiometry using insert earphones demonstrates cnws-nw-fctqupycjl severe level sensorineural type hearing loss, worse [...] up w/ referring physician. Report routed via Progeniq inbox to Dr. Perez on 12/14/2018 -Re-evaluation [...] Audiogram can be also be viewed in digitalbox SmartForms:Audiology: Audiometry. OAE and tympanometry results can be viewed in digitalbox Scanned Documents. RIGHT EAR Hearing Sensitivity: 250-500HZ: WNL; 750-2000Hz:mild; 3000-8000Hz: moderate-severe SNHL Word Recognition Score (order by difficulty 10 word list): Excellent (90%) at slt amplified loudness (fair at conversational loudness) Tympanometry: Type A : Normal ME function. Otoacoustic Emissions results: 750-3000Hz: WNL; 4797-0935: reduced; 8000Hz: absent. LEFT EAR Hearing Sensitivity: 250-500HZ: WNL; 750-3000Hz: moderate; 6000-8000Hz: severe SNHL Word Recognition Score (order by difficulty 10 word list): Excellent (90%) at amplified loudness (poor at conversational loudness) Tympanometry: Type A : Normal ME function. Otoacoustic Emissions results: 750-1000Hz: absent; 3143-9061: reduced; 6000-8000Hz: absent. William Hinson. [employer] 12/14/2018 3:30 PM Ezra Gonzalez : 1935 [...] 11-27-2018 CNOV Office Visit (AGCARDHWW) EZRA GONZALEZ ([id number]) 1935 F Date Time Provider Department 11/27/18 11:00 AM RICKEY CHAVARRIA AGCARDHWW During your visit today, we recorded the following information about you: Pulse Respiration Blood pressure Weight 66/minute 18/minute 124/70 80.7 kg Height 1.575 m Vika Torres CMA 11/27/2018 11:00 AM Signed Patient has no cardiac complaints today. Vika Chavarria MD 11/27/2018 11:24 AM Signed PRIMARY CARE PHYSICIAN: Jo Perez MD [id number] [facility] [address] [place] [address] HISTORY OF PRESENT ILLNESS: Ms. Gonzalez is [...] again. 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 Ezra denies [...] of the time was spent in direct, nhyr-vl-kmrh, contact with the patient for management and counseling. 1. Essential hypertension - ICD9: 401.9, ICD10: I10 (primary diagnosis) 2. Obesity, Class I, BMI 30-34.9 - ICD9: 278.00, ICD10: E66.9 3. Mixed hyperlipidemia - ICD9: 272.2, ICD10: E78.2 4. Paroxysmal atrial fibrillation (HCC) - ICD9: 427.31, ICD10: I48.0 5. Chronic anticoagulation - ICD9: V58.61, ICD10: Z79.01 Rickey Chavarria M.D. [facility] Referring Provider: SELF [[id number]] Allergies As of Date: 11/27/2018 Noted Allergy Reaction CODEINE 03/20/2015 16 - Unknown CRESTOR (ROSUVASTATIN) 03/20/2015 14 - Other: See Comments Comments: Myalgias DEMEROL (MEPERIDINE) 03/20/2015 8 - GI Upset LATEX 03/20/2015 2 - Rash LIPITOR (ATORVASTATIN) 03/20/2015 14 - Other: See Comments Comments: Myalgias Date Reviewed: 11/27/2018 Reviewed by: Vika ([facility]) Brian - Fully Assessed Reason for Visit: CARD Follow Up Annual [1232] Primary Visit Diagnosis:Essential hypertension [I10] Other Visit Diagnoses:Obesity, Class I, BMI 30-34.9 [E66.9] Mixed hyperlipidemia [E78.2] Paroxysmal atrial fibrillation (HCC) [I48.0] Chronic anticoagulation [Z79.01] Order(s):ECG B/O W INTERP (MED OFFICE) [ECG06] Order #: [id number] Prescriptions as of 11/27/2018 Sig: SIMVASTATIN 20 [...] stent placement- 2006 [Z95*INVALID FOR* Atherosclerosis of [place] coronary artery of na*INVALID FOR* Asymptomatic cholelithiasis [...] has no cardiac complaints today. Vika Torres [facility] Disposition: Return in about 1 year (around 11/28/2019). Follow-up and Disposition History Recorded Letter Text Encounter Status:Closed by RICKEY CHAVARRIA MD on 11/27/18 [facility] PROGRESSon 11-27-2018 PROGRESS HNO ID: [id number] Author: Rickey Chavarria Service: ? Author Type: Physician Type: Progress Notes Filed: 11/27/2018 11:24 AM Note Text: PRIMARY CARE PHYSICIAN: Jo Perez MD [id number] [facility] [address] [place] [address] HISTORY OF PRESENT ILLNESS: Ms. Gonzalez is [...] again. 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 Ezra [...] of the time was spent in direct, hvui-vr-ltfz, contact with the patient for management and counseling. 1. Essential hypertension - ICD9: 401.9, ICD10: I10 (primary diagnosis) 2. Obesity, Class I, BMI 30-34.9 - ICD9: 278.00, ICD10: E66.9 3. Mixed hyperlipidemia - ICD9: 272.2, ICD10: E78.2 4. Paroxysmal atrial fibrillation (HCC) - ICD9: 427.31, ICD10: I48.0 5. Chronic anticoagulation - ICD9: V58.61, ICD10: Z79.01 Rickey Chavarria M.D. [facility] Normal [facility] BONE DENSITY STUDY BY XRAY 7 7080on 07-15-2017 BONE DENSITY STUDY BY XRAY [id number] Performed at [facility] APPROVED BY: Kemar Adams MD EXAMINATION: BONE MINERAL DENSITOMETRY (DEXA SCAN) EXAM DATE: 07/15/2017 09:43 CLINICAL INDICATION: 82-year-old postmenopausal female , follow-up osteoporosis screening. COMPARISON: DEXA scan 10/06/2013. DXA TLM [employer] v.13.4 examination is performed on the lumbar [...] is a trademark of the [employer]'s [facility] Disease, a WHO Collaborating [place]. This applies to men over 50 and [...] high risk for accelerated bone loss). [facility] MAMMOGRAM SCREENING WITH CAD IF PERFORMEDon 06-27-2017 MAMMOGRAM SCREENING WITH CAD IF PERFORMED Performed at [facility] APPROVED BY: Lucas Garrido MD #[id number] - MAMMOGRAM SCREENING WITH CAD IF PERFORMEDBILATERAL DIGITAL SCREENING MAMMOGRAM WITH CAD WITH MEDIOLATERAL OBLIQUE CRANIOCAUDAL: 06/27/2017CLINICAL: Routine screening mammogram. Patient reports no breast problems. Comparison is made to exams dated: 07/22/2016 mammogram - [facility], 06/26/2016 mammogram, 06/09/2015 mammogram, and 04/01/2014 [...] notified of the results. Lucas myers/maggi:06/27/2017 11:38:04 General Operations Manager: Loan Summers)(M), [facility] [place] sent: Normal Birad 1 or 2 Mammogram BI-RADS: 1 Negative [facility] Otheron 02-03-2015 CONVERTED CLINICAL HISTORY OPERATIVE PROCEDURE: Colonoscopy CLINICAL INFORMATION: Screening [facility] CONVERTED ELECTRONIC SIGNATURE MO PATRICK M.D., PATHOLOGIST (Electronic signature on file) Final Signed Out: 02/03/2015 12:44 [facility] CONVERTED FINAL DIAGNOSIS FINAL DIAGNOSI S: A) COLON, ASCENDING, BIOPSIES - FRAGMENTS OF TUBULAR ADENOMA. B) COLON, RANDOM BIOPSIES - NO PATHOLOGIC ABNORMALITIES. [facility] CONVERTED GROSS DESCRIPTION GROSS DESCRIPTION: A) Ascending [...] totally submitted in cassette B x 3. SMS:[facility] CONVERTED ORDERING PROVIDER Ordering Provider: SHI LESTER [facility] Otheron 04-19-2010 CONVERTED ELECTRONIC SIGNATURE RAVINDER HAN M.D., PATHOLOGIST (Electronic signature on file) Final Signed Out: 04/19/2010 14:33 [facility] CONVERTED FINAL DIAGNOSIS FINAL DIAGNOSI S: RIGHT SHOULDER, EXCISION - BONE AND ATTACHED CARTILAGE WITH DEGENERATIVE CHANGES. SYNOVIUM WITH NONSPECIFIC REACTIVE CHANGES AND FOCAL MILD CHRONIC INFLAMMATION. SPECIMEN: SHOULDER [facility] CONVERTED GROSS DESCRIPTION GROSS DESCRIPTION: Rt shoulder tissue The container is labeled right shoulder tissue. Received are portions of pink-montague soft tissue and red-montague bone measuring 3 x 3 x 1 cm in aggregate. Sample of soft tissue is submitted in cassette 1, sample of bone is submitted in cassette 2 following decal. SMS/lrs MICROSCOPIC DESCRIPTION: Slides reviewed. 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 SPECIMEN: FEMORAL HEAD [facility] CONVERTED GROSS DESCRIPTION GROSS DESCRIPTION: Left femoral [...] decal. SMS:ATP:hlm MICROSCOPIC DESCRIPTION: Slides reviewed. SDS/gpl [facility] CONVERTED ORDERING PROVIDER Ordering Provider: CLOTILDE DOSS [facility] 08-02-2009 TSH Dylan TYLER M.D., PATHOLOGIST (Electronic signature on file) Final Signed Out: 08/02/2009 14:47 [facility] 05-11-2001 Cholesterol [Mass/Vol] Ordering Provider : SAE RESENDIZ [facility] 05-11-2001 CONVERTED ELECTRONIC SIGNATURE MICHAEL HAWTHORNE M.D., PATHOLOGIST (Electronic signature on file) Final Signed Out: 05/11/2001 11:39 [facility] CONVERTED FINAL DIAGNOSIS TISSUE, REMOVE D AT RELEASE OF RIGHT RING FINGER - FIBROCOLLAGENOUS TISSUE WITH FOCAL FIBROBLASTIC REACTION AND FOCAL MIXOID CHANGE. ATTACHED SMALL AMOUNT OF TISSUE CONSISTENT WITH SYNOVIUM. [facility] Vital Signs Date Time Vital Sign Value Performing Clinician Facility 09-13-2024 14:00-0400 Body height 160.[address] Alexandra Hagen MD Work Phone: [facility] 09-13-2024 14:00-0400 Body mass index (BMI) [Ratio] 30.7 kg/m2 Dr. Alxeandra Hagen MD Work Phone: [facility] 09-13-2024 14:00-0400 Body temperature 92.6 [degF] Dr. Alexandra Hagen MD Work Phone: [facility] 09-13-2024 14:00-0400 Body weight 78.[address] Alexandra Hagen MD Work Phone: 9(084)239-900161 [address] 09-13-2024 14:00-0400 Diastolic blood pressure 79 mm[Hg] Dr. Alexandra Hagen MD Work Phone: 4(766)012-033401 [place] [address] 09-13-2024 14:00-0400 Heart rate 83 /min Dr. Alexandra Hagen MD Work Phone: 9(248)031-636901 [place] [address] 09-13-2024 14:00-0400 Respiratory rate 17 /min Dr. Alexandra Hagen MD Work Phone: 8(387)869-710701 [place] [address] 09-13-2024 14:00-0400 SaO2% (BldA) [Mass fraction] 97 % Dr. Alexandra Hagen MD Work Phone: 3(664)655-478601 [place] [address] 09-13-2024 14:00-0400 Systolic blood pressure 126 mm[Hg] Dr. Alexandra Hagen MD Work Phone: 5(694)762-528901 [place] [address] 09-11-2024 13:55-0400 Body mass index (BMI) [Ratio] 30.3 kg/m2 Dr. Alexandra Hagen MD Work Phone: 2(217)435-391901 [place] [address] 09-11-2024 09:09-0400 Body temperature 97.8 [degF] Dr. Alexandra Hagen MD Work Phone: 6(176)609-808001 [place] [address] 09-11-2024 09:09-0400 Diastolic blood pressure 85 mm[Hg] Dr. Alexandra Hagen MD Work Phone: 9(262)336-753701 [place] [address] 09-11-2024 09:09-0400 Heart rate 84 /min Dr. Alexandra Hagen MD Work Phone: 1(706)416-867201 [place] [address] 09-11-2024 09:09-0400 Respiratory rate 18 /min Dr. Alexandra Hagen MD Work Phone: 1(107)667-247301 [place] [address] 09-11-2024 09:09-0400 SaO2% (BldA) [Mass fraction] 98 % Dr. Alexandra Hagen MD Work Phone: 0(115)022-667701 [place] [address] 09-11-2024 09:09-0400 Systolic blood pressure 174 mm[Hg] Dr. Alexandra Hagen MD Work Phone: [facility] 09-10-2024 17:17-0400 Body height 160.[address] Alexandra Hagen MD Work Phone: [facility] 09-10-2024 17:17-0400 Body weight 77.[address] Alexandra Hagen MD Work Phone: 6(644)103-151501 [place] [address] 09-10-2024 16:30-0400 Diastolic blood pressure 73 mm[Hg] Dr. Alexandra Hagen MD Work Phone: 9(118)561-730335 [place] [address] 09-10-2024 16:30-0400 Heart rate 79 /min Dr. Alexandra Hagen MD Work Phone: 8(210)574-132301 [place] [address] 09-10-2024 16:30-0400 Respiratory rate 20 /min Dr. Alexandra Hagen MD Work Phone: 3(959)910-437301 [place] [address] 09-10-2024 16:30-0400 SaO2% (BldA) [Mass fraction] 93 % Dr. Alexandra Hagen MD Work Phone: 2(757)231-438235 [place] [address] 09-10-2024 16:30-0400 Systolic blood pressure 118 mm[Hg] Dr. Alexandra Hagen MD Work Phone: 5(147)041-568801 [place] [address] 09-10-2024 16:07-0400 Body temperature 98.3 [degF] Dr. Alexandra Hagen MD Work Phone: 7(816)211-717335 [place] [address] 09-10-2024 14:19-0400 Body height 160.[address] Alexandra Hagen MD Work Phone: 1(390)109-768735 [place] [address] 09-10-2024 14:19-0400 Body mass index (BMI) [Ratio] 26.5 kg/m2 Dr. Alexandra Hagen MD Work Phone: 5(390)937-936535 [place] [address] 09-10-2024 14:19-0400 Body weight 68.[address] Alexandra Hagen MD Work Phone: [facility] 09-08-2024 15:30-0400 Heart rate 64 /min Dr. Alexandra Hagen MD Work Phone: 5(356)291-877935 [place] [address] 09-08-2024 15:30-0400 Respiratory rate 23 /min Dr. Alexandra Hagen MD Work Phone: 1(670)949-917401 [place] [address] 09-08-2024 15:30-0400 SaO2% (BldA) [Mass fraction] 97 % Dr. Alexandra Hagen MD Work Phone: 3(088)899-784501 [place] [address] 09-08-2024 12:22-0400 Body height 160.[address] Alexandra Hagen MD Work Phone: 2(430)830-505001 [place] [address] 09-08-2024 12:22-0400 Body mass index (BMI) [Ratio] 33.5 kg/m2 Dr. Alexandra Hagen MD Work Phone: 4(378)789-177001 [place] [address] 09-08-2024 12:22-0400 Body temperature 98 [degF] Dr. Alexandra Hagen MD Work Phone: 8(260)535-133501 [place] [address] 09-08-2024 12:22-0400 Body weight 85.[address] Alexandra Hagen MD Work Phone: 5(196)824-890101 [place] [address] 09-08-2024 12:22-0400 Diastolic blood pressure 70 mm[Hg] Dr. Alexandra Hagen MD Work Phone: 4(684)081-600301 [place] [address] 09-08-2024 12:22-0400 Systolic blood pressure 131 mm[Hg] Dr. Alexandra Hagen MD Work Phone: 3(818)931-534101 [place] [address] 07-01-2024 10:38-0400 Body height 160.[address] Alexandra Hagen MD Work Phone: 7(220)266-328901 [place] [address] 07-01-2024 10:38-0400 Body mass index (BMI) [Ratio] 30.8 kg/m2 Dr. Alexandra Hagen MD Work Phone: 0(635)784-411001 [place] [address] 07-01-2024 10:38-0400 Body weight 78.[address] Alexandra Hagen MD Work Phone: 9(972)547-051201 [place] [address] 07-01-2024 10:38-0400 Diastolic blood pressure 85 mm[Hg] Dr. Alexandra Hagen MD Work Phone: [facility] 07-01-2024 10:38-0400 Heart rate 60 /min Dr. Alexandra Hagen MD Work Phone: [facility] 07-01-2024 10:38-0400 Respiratory rate 16 /min Dr. Alexandra Hagen MD Work Phone: [facility] 07-01-2024 10:38-0400 Systolic blood pressure 184 mm[Hg] Dr. Alexandra Hagen MD Work Phone: [facility] 05-10-2024 14:35-0500 Body height 160.[address] Alexandra Hagen MD Work Phone: 1(725)092-827561 [address] 05-10-2024 14:35-0500 Body mass index (BMI) [Ratio] 30.9 kg/m2 Dr. Alexandra Hagen MD Work Phone: 8(797)536-462735 [place] [address] 05-10-2024 14:35-0500 Body temperature 97.8 [degF] Dr. Alexandra Hagen MD Work Phone: 6(032)861-673335 [place] [address] 05-10-2024 14:35-0500 Body weight 79.[address] Alexandra Hagen MD Work Phone: [facility] 05-10-2024 14:35-0500 Diastolic blood pressure 86 mm[Hg] Dr. Alexandra Hagen MD Work Phone: [facility] 05-10-2024 14:35-0500 Heart rate 75 /min Dr. Alexandra Hagen MD Work Phone: [facility] 05-10-2024 14:35-0500 Respiratory rate 16 /min Dr. Alexandra Hagen MD Work Phone: [facility] 05-10-2024 14:35-0500 SaO2% (BldA) [Mass fraction] 94 % Dr. Alexandra Hagen MD Work Phone: [facility] 05-10-2024 14:35-0500 Systolic blood pressure 140 mm[Hg] Dr. Alexandra Hagen MD Work Phone: [facility] 06-20-2023 11:10-0400 Diastolic blood pressure 92 mm[Hg] Sae Conde MD Work Phone: [facility] 06-20-2023 11:10-0400 Heart rate 88 /min Sae Conde MD Work Phone: [facility] 06-20-2023 11:10-0400 Systolic blood pressure 173 mm[Hg] Sae Conde MD Work Phone: [facility] 06-20-2023 05:34-0400 Body temperature 97.39 [degF] Sae Conde MD Work Phone: [facility] 06-20-2023 05:34-0400 Respiratory rate 20 /min Sae Conde MD Work Phone: [facility] 06-20-2023 05:34-0400 SaO2% (BldA) [Mass fraction] 95 % Sae Conde MD Work Phone: [facility] 06-17-2023 18:30-0400 Body height 160 cm Sae Conde MD Work Phone: [facility] 06-17-2023 18:30-0400 Body mass index (BMI) [Ratio] 30.83 kg/m2 Sae Conde MD Work Phone: [facility] 06-17-2023 18:30-0400 Body weight 78.93 kg Sae Conde MD Work Phone: [facility] 06-16-2023 11:02-0400 Body temperature 96.4 [degF] Dr. Rosemary Doran Work Phone: [facility] 06-16-2023 11:02-0400 Diastolic blood pressure 84 mm[Hg] Dr. Rosemary Doran Work Phone: [facility] 06-16-2023 11:02-0400 Heart rate 72 /min Dr. Rosemary Doran Work Phone: [facility] 06-16-2023 11:02-0400 Respiratory rate 16 /min Dr. Rosemary Doran Work Phone: [facility] 06-16-2023 11:02-0400 SaO2% (BldA) [Mass fraction] 96 % Dr. Rosemary Doran Work Phone: [facility] 06-16-2023 11:02-0400 Systolic blood pressure 157 mm[Hg] Dr. Rosemary Doran Work Phone: [facility] 06-16-2023 08:33-0400 Body height 160.[address] Rosemary Doran Work Phone: [facility] 06-16-2023 08:33-0400 Body mass index (BMI) [Ratio] 33.1 kg/m2 Dr. Rosemary Doran Work Phone: [facility] 06-16-2023 08:33-0400 Body weight 84.[address] Rosemary Doran Work Phone: [facility] 05-19-2023 11:21-0500 Body height 160.[address] Rosemary Doran Work Phone: [facility] 05-19-2023 11:21-0500 Body mass index (BMI) [Ratio] 31.6 kg/m2 Dr. Rosemary Doran Work Phone: [facility] 05-19-2023 11:21-0500 Body temperature 97.8 [degF] Dr. Rosemary Doran Work Phone: [facility] 05-19-2023 11:21-0500 Body weight 81.[address] Rosemary Doran Work Phone: [facility] 05-19-2023 11:21-0500 Diastolic blood pressure 90 mm[Hg] Dr. Rosemary Doran Work Phone: [facility] 05-19-2023 11:21-0500 Heart rate 88 /min Dr. Rosemary Doran Work Phone: [facility] 05-19-2023 11:21-0500 Respiratory rate 17 /min Dr. Rosemary Doran Work Phone: [facility] 05-19-2023 11:21-0500 SaO2% (BldA) [Mass fraction] 98 % Dr. Rosemary Doran Work Phone: [facility] 05-19-2023 11:21-0500 Systolic blood pressure 152 mm[Hg] Dr. Rosemary Doran Work Phone: [facility] 05-15-2023 09:01-0500 Body mass index (BMI) [Ratio] 31.6 kg/m2 Dr. Rosemary Doran Work Phone: [facility] 05-15-2023 09:01-0500 Body weight 81.[address] Rosemary Doran Work Phone: [facility] 05-15-2023 09:01-0500 Diastolic blood pressure 85 mm[Hg] Dr. Rosemary Doran Work Phone: [facility] 05-15-2023 09:01-0500 Heart rate 78 /min Dr. Rosemary Doran Work Phone: [facility] 05-15-2023 09:01-0500 Respiratory rate 18 /min Dr. Rosemary Doran Work Phone: [facility] 05-15-2023 09:01-0500 Systolic blood pressure 156 mm[Hg] Dr. Rosemary Doran Work Phone: [facility] 01-20-2023 08:05-0400 Body height 160.[address] Rosemary Doran Work Phone: [facility] 01-20-2023 08:05-0400 Body mass index (BMI) [Ratio] 32 kg/m2 Dr. Rosemary Doran Work Phone: [facility] 01-20-2023 08:05-0400 Body temperature 98 [degF] Dr. Rosemary Doran Work Phone: [facility] 01-20-2023 08:05-0400 Body weight 82.[address] Rosemary Doran Work Phone: [facility] 01-20-2023 08:05-0400 Diastolic blood pressure 90 mm[Hg] Dr. Rosemary Doran Work Phone: [facility] 01-20-2023 08:05-0400 Heart rate 88 /min Dr. Rosemary Doran Work Phone: [facility] 01-20-2023 08:05-0400 Respiratory rate 17 /min Dr. Rosemary Doran Work Phone: [facility] 01-20-2023 08:05-0400 SaO2% (BldA) [Mass fraction] 97 % Dr. Rosemary Doran Work Phone: [facility] 01-20-2023 08:05-0400 Systolic blood pressure 140 mm[Hg] Dr. Rosemary Doran Work Phone: [facility] 12-28-2022 11:09-0400 Body temperature 97.8 [degF] Dr. Rosemary Doran Work Phone: [facility] 12-28-2022 11:09-0400 Diastolic blood pressure 79 mm[Hg] Dr. Rosemary Doran Work Phone: [facility] 12-28-2022 11:09-0400 Heart rate 84 /min Dr. Rosemary Doran Work Phone: [facility] 12-28-2022 11:09-0400 Respiratory rate 16 /min Dr. Rosemary Doran Work Phone: [facility] 12-28-2022 11:09-0400 SaO2% (BldA) [Mass fraction] 96 % Dr. Rosemary Doran Work Phone: [facility] 12-28-2022 11:09-0400 Systolic blood pressure 169 mm[Hg] Dr. Rosemary Doran Work Phone: [facility] 12-27-2022 19:16-0400 Body height 160.[address] Rosemary Doran Work Phone: [facility] 12-27-2022 19:16-0400 Body mass index (BMI) [Ratio] 32.1 kg/m2 Dr. Rosemary Doran Work Phone: [facility] 12-27-2022 19:16-0400 Body weight 82.[address] Rosemary Doran Work Phone: [facility] 12-05-2022 09:25-0400 Body temperature 98.2 [degF] Dr. Rosemary Doran Work Phone: [facility] 12-05-2022 09:25-0400 Body weight 82.[address] Rosemary Doran Work Phone: [facility] 12-05-2022 09:25-0400 Diastolic blood pressure 85 mm[Hg] Dr. Rosemary Doran Work Phone: [facility] 12-05-2022 09:25-0400 Heart rate 90 /min Dr. Rosemary Doran Work Phone: [facility] 12-05-2022 09:25-0400 SaO2% (BldA) [Mass fraction] 95 % Dr. Rosemary Doran Work Phone: [facility] 12-05-2022 09:25-0400 Systolic blood pressure 145 mm[Hg] Dr. Rosemary Doran Work Phone: [facility] 11-18-2022 11:24-0400 Diastolic blood pressure 82 mm[Hg] Dr. Rosemary Doran Work Phone: [facility] 11-18-2022 11:24-0400 Heart rate 76 /min Dr. Rosemary Doran Work Phone: [facility] 11-18-2022 11:24-0400 Respiratory rate 15 /min Dr. Rosemary Doran Work Phone: [facility] 11-18-2022 11:24-0400 SaO2% (BldA) [Mass fraction] 98 % Dr. Rosemary Doran Work Phone: [facility] 11-18-2022 11:24-0400 Systolic blood pressure 137 mm[Hg] Dr. Rosemary Doran Work Phone: [facility] 11-18-2022 07:55-0400 Body height 160.[address] Rosemary Doran Work Phone: [facility] 11-18-2022 07:55-0400 Body mass index (BMI) [Ratio] 32.9 kg/m2 Dr. Rosemary Doran Work Phone: [facility] 11-18-2022 07:55-0400 Body weight 84.[address] Rosemary Doran Work Phone: [facility] 11-18-2022 07:50-0400 Body temperature 97.8 [degF] Dr. Rosemary Doran Work Phone: [facility] 11-15-2022 10:11-0400 Body mass index (BMI) [Ratio] 32.2 kg/m2 Dr. Rosemary Doran Work Phone: [facility] 11-15-2022 08:55-0400 Body temperature 97.7 [degF] Dr. Rosemary Doran Work Phone: [facility] 11-15-2022 08:55-0400 Diastolic blood pressure 78 mm[Hg] Dr. Rosemary Doran Work Phone: [facility] 11-15-2022 08:55-0400 Heart rate 68 /min Dr. Rosemary Doran Work Phone: [facility] 11-15-2022 08:55-0400 Respiratory rate 16 /min Dr. Rosemary Doran Work Phone: [facility] 11-15-2022 08:55-0400 SaO2% (BldA) [Mass fraction] 96 % Dr. Rosemary Doran Work Phone: [facility] 11-15-2022 08:55-0400 Systolic blood pressure 136 mm[Hg] Dr. Rosemary Doran Work Phone: [facility] 11-14-2022 13:12-0400 Body weight 82.[address] Rosemary Doran Work Phone: [facility] 11-14-2022 12:30-0400 Body temperature 97.6 [degF] Dr. Rosemary Doran Work Phone: [facility] 11-14-2022 12:30-0400 Diastolic blood pressure 101 mm[Hg] Dr. Rosemary Doran Work Phone: [facility] 11-14-2022 12:30-0400 Heart rate 64 /min Dr. Rosemary Doran Work Phone: [facility] 11-14-2022 12:30-0400 Respiratory rate 14 /min Dr. Rosemary Doran Work Phone: [facility] 11-14-2022 12:30-0400 SaO2% (BldA) [Mass fraction] 98 % Dr. Rosemary Doran Work Phone: [facility] 11-14-2022 12:30-0400 Systolic blood pressure 164 mm[Hg] Dr. Rosemary Doran Work Phone: [facility] 11-14-2022 11:02-0400 Body height 160.[address] Rosemary Doran Work Phone: [facility] 11-14-2022 11:02-0400 Body mass index (BMI) [Ratio] 33.7 kg/m2 Dr. Rosemary Doran Work Phone: [facility] 11-14-2022 11:02-0400 Body weight 86.[address] Rosemary Doran Work Phone: [facility] 10-15-2022 09:24-0400 Body height 160.[address] Rosemary Doran Work Phone: [facility] 10-15-2022 09:24-0400 Body mass index (BMI) [Ratio] 30.8 kg/m2 Dr. Rosemary Doran Work Phone: [facility] 10-15-2022 09:24-0400 Body weight 78.[address] Rosemary Doran Work Phone: [facility] 10-15-2022 09:24-0400 Diastolic blood pressure 87 mm[Hg] Dr. Rosemary Doran Work Phone: [facility] 10-15-2022 09:24-0400 Heart rate 73 /min Dr. Rosemary Doran Work Phone: [facility] 10-15-2022 09:24-0400 Respiratory rate 18 /min Dr. Rosemary Doran Work Phone: [facility] 10-15-2022 09:24-0400 Systolic blood pressure 149 mm[Hg] Dr. Rosemary Doran Work Phone: [facility] 09-18-2022 19:36-0400 Diastolic blood pressure 72 mm[Hg] Dr. Rosemary Doran Work Phone: [facility] 09-18-2022 19:36-0400 Systolic blood pressure 140 mm[Hg] Dr. Rosemary Doran Work Phone: [facility] 09-18-2022 08:05-0400 Body height 160.[address] Rosemary Doran Work Phone: [facility] 09-18-2022 08:05-0400 Body mass index (BMI) [Ratio] 31.8 kg/m2 Dr. Rosemary Doran Work Phone: [facility] 09-18-2022 08:05-0400 Body temperature 97.8 [degF] Dr. Rosemary Doran Work Phone: [facility] 09-18-2022 08:05-0400 Body weight 81.[address] Rosemary Doran Work Phone: [facility] 09-18-2022 08:05-0400 Heart rate 111 /min Dr. Rosemary Doran Work Phone: [facility] 09-18-2022 08:05-0400 Respiratory rate 17 /min Dr. Rosemary Doran Work Phone: [facility] 09-18-2022 08:05-0400 SaO2% (BldA) [Mass fraction] 99 % Dr. Rosemary Doran Work Phone: [facility] 09-08-2022 16:03-0400 Diastolic blood pressure 84 mm[Hg] Dr. Rosemary Doran Work Phone: [facility] 09-08-2022 16:03-0400 Heart rate 90 /min Dr. Rosemary Doran Work Phone: [facility] 09-08-2022 16:03-0400 Respiratory rate 20 /min Dr. Rosemary Doran Work Phone: [facility] 09-08-2022 16:03-0400 SaO2% (BldA) [Mass fraction] 97 % Dr. Rosemary Doran Work Phone: [facility] 09-08-2022 16:03-0400 Systolic blood pressure 157 mm[Hg] Dr. Rosemary Doran Work Phone: [facility] 09-08-2022 15:32-0400 Body mass index (BMI) [Ratio] 33.2 kg/m2 Dr. Rosemary Doran Work Phone: [facility] 09-08-2022 15:32-0400 Body weight [address] Rosemary Doran Work Phone: [facility] 09-08-2022 14:26-0400 Body temperature 96.8 [degF] Dr. Rosemary Doran Work Phone: [facility] 04-16-2022 14:26-0500 Body height 160.[address] Rosemary Doran Work Phone: [facility] 04-16-2022 14:26-0500 Body mass index (BMI) [Ratio] 30.6 kg/m2 Dr. Rosemary Doran Work Phone: [facility] 04-16-2022 14:26-0500 Body weight 78.[address] Rosemary Doran Work Phone: [facility] 04-16-2022 14:26-0500 Diastolic blood pressure 60 mm[Hg] Dr. Rosemary Doran Work Phone: [facility] 04-16-2022 14:26-0500 Heart rate 88 /min Dr. Rosemary Doran Work Phone: [facility] 04-16-2022 14:26-0500 Respiratory rate 18 /min Dr. Rosemary Doran Work Phone: [facility] 04-16-2022 14:26-0500 Systolic blood pressure 89 mm[Hg] Dr. Rosemary Doran Work Phone: [facility] 02-11-2022 02:02-0500 Diastolic blood pressure 82 mm[Hg] Dr. Rosemary Doran Work Phone: [facility] 02-11-2022 02:02-0500 Heart rate 74 /min Dr. Rosemary Doran Work Phone: [facility] 02-11-2022 02:02-0500 Respiratory rate 16 /min Dr. Rosemary Doran Work Phone: [facility] 02-11-2022 02:02-0500 SaO2% (BldA) [Mass fraction] 96 % Dr. Rosemary Doran Work Phone: [facility] 02-11-2022 02:02-0500 Systolic blood pressure 106 mm[Hg] Dr. Rosemary Doran Work Phone: [facility] 02-11-2022 00:07-0500 Body height 160.[address] Rosemary Doran Work Phone: [facility] Work Phone: 02-11-2022 00:07-0500 Body mass index (BMI) [Ratio] 33.1 kg/m2 Dr. Rosemary Doran Work Phone: [facility] 02-11-2022 00:07-0500 Body temperature 98.4 [degF] Dr. Rosemary Doran Work Phone: [facility] 02-11-2022 00:07-0500 Body weight 84.[address] Rosemary Doran Work Phone: [facility] 10-18-2021 10:26-0400 Body mass index (BMI) [Ratio] 33.1 kg/m2 Dr. Rosemary Doran Work Phone: [facility] Work Phone: 10-18-2021 10:26-0400 Body weight 84.[address] Rosemary Doran Work Phone: [facility] Work Phone: 10-18-2021 10:26-0400 Diastolic blood pressure 63 mm[Hg] Dr. Rosemary Doran Work Phone: [facility] Work Phone: 10-18-2021 10:26-0400 Heart rate 87 /min Dr. Rosemary Doran Work Phone: [facility] Work Phone: 10-18-2021 10:26-0400 Respiratory rate 20 /min Dr. Rosemary Doran Work Phone: [facility] Work Phone: 10-18-2021 10:26-0400 SaO2% (BldA) [Mass fraction] 96 % Dr. Rosemary Doran Work Phone: [facility] Work Phone: 10-18-2021 10:26-0400 Systolic blood pressure 101 mm[Hg] Dr. Rosemary Doran Work Phone: [facility] Work Phone: Encounters Encounter Date Encounter Type Care Provider Facility Start: 09-13-2024 End: 09-13-[address] Anant Juarez MD -[facility] Work Phone: Start: 09-13-2024 End: 09-13-[address] Alexandra Hagen MD Work Phone: [facility] Work Phone: Start: 09-11-2024 Non-patient / Non-visit Dr. Richardson WHEELER -[facility] Work Phone: Start: 09-10-2024 End: 09-11-2024 ambulatory [facility] Facility:[facility] Start: 09-10-2024 End: 09-11-2024 Evaluation and management of inpatient Dr. Matthew Oro DO -Progressive Care Unit Work Phone: Start: 09-10-2024 End: 09-11-[address] Alexandra Hagen MD Work Phone: [facility] Work Phone: Start: 09-08-2024 End: 09-08-2024 Emergency department patient visit Dr. Alexandra Hagen MD Work Phone: -Emergency Department Work Phone: Start: 08-18-2024 End: 08-18-[address] Alexandra Hagen MD Work Phone: [facility] Work Phone: Start: 08-18-2024 End: 08-18-2024 Departed Referred [facility] Work Phone: Start: 08-18-2024 Registered Referred [facility] Work Phone: Start: 08-18-2024 End: 08-18-2024 ambulatory Cesar MARTINEZ Facility:[facility] Start: 07-19-2024 End: 07-19-[address] Alexandra Hagen MD Work Phone: [facility] Work Phone: Start: 07-19-2024 End: 07-19-2024 Departed Referred [facility] Work Phone: Start: 07-19-2024 End: 07-19-2024 ambulatory Cesar MARTINEZ Facility:[facility] Start: 07-01-2024 End: 07-01-[address] Cesar Cole MD -[facility] Work Phone: Start: 07-01-2024 End: 07-01-2024 ambulatory Cesar Cole Facility:[facility] Start: 06-16-2024 End: 06-16-[address] Alexandra Hagen MD Work Phone: [facility] Work Phone: Start: 06-16-2024 End: 06-16-[address] [facility] Work Phone: Start: 06-16-[address] Chucky leger MD -[facility] Work Phone: Start: 06-16-2024 End: 06-16-2024 ambulatory Chucky MARTINEZ Facility:[facility] Start: 06-09-2024 End: 06-09-[address] Alexandra Hagen MD Work Phone: [facility] Work Phone: Start: 06-09-2024 End: 06-09-[address] [facility] Work Phone: Start: 06-09-2024 End: 06-09-2024 ambulatory Chucky MARTINEZ Facility:[facility] Start: 05-19-2024 End: 05-19-[address] Alexandra Hagen MD Work Phone: [facility] Work Phone: Start: 05-19-2024 End: 05-19-2024 Departed Referred [facility] Work Phone: Start: 05-19-[address] [facility] Work Phone: Start: 05-19-2024 End: 05-19-2024 ambulatory Cesar MARTINEZ Facility:[facility] Start: 05-12-2024 ambulatory Anant MARTINEZ Fac ility:[facility] Start: 05-12-2024 Registered Referred An[facility] Work Phone: Start: 05-10-2024 End: 05-10-[address] Anant Juarez MD -[facility] Work Phone: Start: 05-10-2024 End: 05-10-2024 ambulatory Anant Juarez Facility:[facility] Start: 05-05-2024 End: 05-05-[address] Alexandra Hagen MD Work Phone: [facility] Work Phone: Start: 05-05-2024 End: 05-05-2024 Departed Referred [facility] Work Phone: Start: 05-05-2024 Registered Referred [facility] Work Phone: Start: 05-05-2024 End: 05-05-2024 ambulatory Cesar MARTINEZ Facility:[facility] Start: 04-28-2024 End: 04-28-[address] Alexandra Hagen MD Work Phone: [facility] Work Phone: Start: 04-28-2024 End: 04-28-[address] Chucky Ochoa MD -[facility] Work Phone: Start: 04-28-2024 End: 04-28-2024 ambulatory Chucky MARTINEZ Facility:[facility] Start: 04-14-2024 ambulatory Chucky MARTINEZ Facil ity:[facility] Start: 04-14-[address] Chucky leger MD -[facility] Work Phone: Start: 04-09-2024 End: 04-09-[address] Chucky Ochoa MD -[facility] Work Phone: Start: 04-09-2024 End: 04-09-2024 ambulatory Chucky MARTINEZ Facility:[facility] Start: 04-06-2024 End: 04-06-[address] [facility] Work Phone: Start: 04-05-2024 End: 04-06-2024 ambulatory Chucky Ochoa [facility] Facility:[facility] Start: 04-05-[address] [facility] Work Phone: Start: 03-29-2024 ambulatory Chucky Ochoa O[facility] Facil ity:[facility] Start: 03-29-[address] [facility] Work Phone: Start: 03-26-2024 ambulatory Chucky Ochoa OLS Facil ity:[facility] Start: 03-26-[address] [facility] Work Phone: Start: 03-25-2024 ambulatory Chucky Ochoa OLS Facil ity:[facility] Start: 03-25-[address] [facility] Work Phone: Start: 03-19-2024 ambulatory Chucky Ochoa OLS Facil ity:[facility] Start: 03-19-[address] Chcuky [facility] Work Phone: Start: 03-17-2024 ambulatory Chucky Don [facility] Facil ity:[facility] Start: 03-17-[address] [facility] Work Phone: Start: 03-10-2024 ambulatory Chucky Ochoa [facility] Facil ity:[facility] Start: 03-10-[address] [facility] Work Phone: Start: 03-08-2024 ambulatory Chucky Ochoa OLS Facil ity:[facility] Start: 03-08-[address] [facility] Work Phone: Start: 03-04-2024 ambulatory Chucky Ochoa OLS Facil ity:[facility] Start: 03-04-[address] Chucky leger MD -[facility] Work Phone: Start: 02-05-2024 End: 02-05-[address] Chucky Ochoa MD -[facility] Work Phone: Start: 02-05-2024 End: 02-05-2024 ambulatory Chucky MARTINEZ Facility:[facility] Start: 01-08-2024 End: 01-08-2024 ambulatory Chucky MARTINEZ Facility:[facility] Start: 12-26-2023 End: 12-26-2023 ambulatory Chucky MARTINEZ Facility:[facility] Start: 12-19-2023 End: 12-19-2023 ambulatory Chucky MARTINEZ Facility:[facility] Start: 12-18-2023 End: 12-18-2023 ambulatory Chucky MARTINEZ Facility:[facility] Start: 11-20-2023 ambulatory Chucky MARTINEZ Facil ity:[facility] Start: 11-05-2023 End: 11-05-2023 ambulatory Chucky MARTINEZ Facility:[facility] Start: 11-04-2023 End: 11-04-2023 ambulatory Chucky MARTINEZ Facility:[facility] Start: 10-28-2023 End: 10-28-2023 ambulatory Chucky MARTINEZ Facility:[facility] Start: 10-24-2023 End: 10-24-2023 ambulatory Chucky MARTINEZ Facility:[facility] Start: 10-21-2023 End: 10-21-2023 ambulatory Chucky MARTINEZ Facility:[facility] Start: 10-15-2023 End: 10-15-2023 ambulatory Alexandra Hagen Facility:[facility] Start: 10-10-2023 End: 10-10-2023 ambulatory Chucky MARTINEZ Facility:[facility] Start: 09-22-2023 End: 09-22-2023 ambulatory Rosemary Doran Facility:[facility] Start: 09-22-2023 End: 09-22-2023 ambulatory Alexandra Hagen Facility:[facility] Start: 06-30-2023 End: 06-30-[address] Rosemary Doran Work Phone: [facility] Work Phone: Start: 06-30-2023 End: 06-30-[address] Rosemary Doran Work Phone: [facility] Work Phone: Start: 06-16-2023 End: 06-20-2023 Evaluation and management of inpatient [facility] Start: 06-16-2023 End: 06-20-2023 Evaluation and management of inpatient Sae Conde MD Work Phone: [facility] Comment on above: Closed displaced fra cture of medial condyle of right humerus, initial encounter (Primary Dx) Start: 06-16-2023 Non-patient / Non-visit Dr. Slim Doran Work Phone: [facility] Start: 06-16-2023 End: 06-16-2023 Emergency department patient visit Dr. Rosemary Doran Work Phone: [facility]-Emergency Department Work Phone: Start: 05-30-2023 End: 05-30-[address] Rosemary Doran Work Phone: [facility] Work Phone: Start: 05-30-2023 End: 05-30-[address] Rosemary Doran Work Phone: [facility] Work Phone: Start: 05-19-2023 End: 05-19-[address] Rosemary Doran Work Phone: [facility] Work Phone: Start: 05-15-2023 End: 05-15-[address] Rosemary Doran Work Phone: [facility] Work Phone: Start: 05-12-2023 End: 05-12-[address] Rosemary Doran Work Phone: [facility] Work Phone: Start: 05-12-[address] Rosemary Doran Work Phone: [facility] Work Phone: Start: 05-01-2023 End: 05-01-[address] Rosemary Doran Work Phone: [facility] Work Phone: Start: 05-01-2023 End: 05-01-[address] Rosemary Doran Work Phone: [facility] Work Phone: Start: 04-17-2023 End: 04-17-[address] Rosemary Doran Work Phone: [facility] Work Phone: Start: 04-17-2023 End: 04-17-[address] Rosemary Doran Work Phone: [facility] Work Phone: Start: 04-17-[address] Rosemary Doran Work Phone: [facility] Work Phone: Start: 03-20-2023 End: 03-20-[address] Rosemary Doran Work Phone: [facility] Work Phone: Start: 02-21-2023 End: 02-21-[address] Rosemary Doran Work Phone: [facility] Work Phone: Start: 02-21-2023 End: 02-21-[address] Rosemary Doran Work Phone: [facility] Work Phone: Start: 01-20-2023 End: 01-20-[address] Rosemary Doran Work Phone: [facility] Work Phone: Start: 01-20-2023 End: 01-20-[address] Rosemary Doran Work Phone: [facility] Work Phone: Start: 01-20-2023 End: 01-20-[address] Rosemary Doran Work Phone: [facility] Work Phone: Start: 01-16-2023 End: 01-16-[address] Rosemary Doran Work Phone: [facility] Work Phone: Start: 01-16-2023 End: 01-16-[address] Rosemary Doran Work Phone: [facility] Work Phone: Start: 12-28-2022 Non-patient / Non-visit Dr. Slim Doran Work Phone: [facility] Work Phone: Start: 12-27-2022 Non-patient / Non-visit Dr. Slim Doran Work Phone: [facility] Work Phone: Start: 12-27-2022 End: 12-28-2022 Evaluation and management of inpatient Dr. Rosemary Doran Work Phone: [facility] Work Phone: Start: 12-27-2022 End: 12-28-[address] Rosemary Doran Work Phone: [facility] Work Phone: Start: 12-19-2022 End: 12-19-[address] Rosemary Doran Work Phone: [facility] Work Phone: Start: 12-19-2022 End: 12-19-[address] Rosemary Doran Work Phone: [facility] Work Phone: Start: 12-19-[address] Rosemary Doran Work Phone: [facility] Work Phone: Start: 12-09-2022 End: 12-09-[address] Rosemary Doran Work Phone: [facility] Work Phone: Start: 12-09-2022 End: 12-09-[address] Rosemary Doran Work Phone: [facility] Work Phone: Start: 12-09-[address] Rosemary Doran Work Phone: [facility] Work Phone: Start: 12-05-2022 End: 12-05-[address] Rosemary Doran Work Phone: [facility] V[facility] Work Phone: Start: 11-20-2022 End: 11-20-[address] Rosemary Doran Work Phone: [facility] Work Phone: Start: 11-20-2022 End: 11-20-[address] Rosemary Doran Work Phone: [facility] Work Phone: Start: 11-20-[address] Rosemary Doran Work Phone: [facility] Work Phone: Start: 11-18-2022 End: 11-18-2022 Emergency department patient visit Dr. Rosemary Doran Work Phone: [facility]-Emergency Department Work Phone: Start: 11-15-2022 Non-patient / Non-visit Dr. Slim Doran Work Phone: [facility] Work Phone: Start: 11-14-2022 Non-patient / Non-visit Dr. Slim Doran Work Phone: [facility] Start: 11-14-2022 Non-patient / Non-visit Dr. Slim Doran Work Phone: [facility] Work Phone: Start: 11-14-2022 End: 11-15-2022 Evaluation and management of inpatient Dr. Rosemary Doran Work Phone: [facility]-Progressive Care Unit Work Phone: Start: 11-14-[address] Marcelo Doran Work Phone: [facility] Work Phone: Start: 10-23-2022 End: 10-23-[address] Rosemary Doran Work Phone: [facility] Work Phone: Start: 10-23-2022 End: 10-23-[address] Rosemary Doran Work Phone: [facility] Work Phone: Start: 10-22-2022 End: 10-22-[address] Rosemary Doran Work Phone: [facility] Work Phone: Start: 10-22-2022 End: 10-22-[address] Rosemary Doran Work Phone: [facility]-Physical Therapy Work Phone: Start: 10-22-[address] Sada Doran Work Phone: [facility]-Physical Therapy Work Phone: Start: 10-15-2022 End: 10-15-[address] Rosemary Doran Work Phone: [facility] Work Phone: Start: 09-26-2022 Non-patient / Non-visit Dr. Slim Doran Work Phone: [facility] Start: 09-26-2022 End: 09-26-[address] Rosemary Doran Work Phone: [facility] Work Phone: Start: 09-26-2022 End: 09-26-[address] Rosemary Doran Work Phone: [facility]-Cardiovascula r Services Work Phone: Start: 09-18-2022 End: 09-18-[address] Rosemary Doran Work Phone: [facility] Work Phone: Start: 09-18-2022 End: 09-18-[address] Rosemary Doran Work Phone: [facility] Start: 09-13-2022 End: 09-13-[address] [facility] Start: 09-08-2022 End: 09-08-2022 Emergency department patient visit Dr. Rosemary Doran Work Phone: [facility]-Emergency Department Start: 09-06-2022 End: 09-06-[address] Rosemary Doran Work Phone: [facility] Start: 09-05-2022 End: 09-05-[address] Rosemary Doran Work Phone: [facility] Start: 08-08-2022 End: 08-08-[address] Rosemary Doran Work Phone: [facility] Start: 06-26-2022 End: 06-26-[address] Rosemary Doran Work Phone: [facility] Work Phone: Start: 06-26-2022 End: 06-26-[address] Rosemary Doran Work Phone: [facility] Start: 06-04-2022 End: 06-04-[address] Rosemary Doran Work Phone: [facility] Work Phone: Start: 06-04-2022 End: 06-04-[address] Rosemary Doran Work Phone: [facility] Start: 04-16-2022 End: 04-16-[address] Rosemary Doran Work Phone: [facility] Start: 02-11-2022 End: 02-11-2022 Emergency department patient visit Dr. Rosemary Doran Work Phone: [facility]-Emergency Department Start: 10-18-2021 End: 10-18-[address] Rosemary Doran Work Phone: [facility] Start: 10-12-2019 End: 10-12-2019 Refill Jo Perez Work Phone: [facility] Comment on above: Refill Request; Refi ll Request Start: 02-11-2018 Patient encounter ROSA ELENA Cai lity:[facility] Start: 01-05-2018 End: 01-05-2018 Patient encounter JO PEREZ Facility:[facility] Start: 07-21-2017 End: 07-21-2017 Patient encounter RICKEY CHAVARRIA Facility:[facility] Start: 07-15-2017 Patient encounter ALEXJONH PEREZ Facility:[facility] Start: 07-07-2017 End: 07-07-2017 Patient encounter JO PEREZ Facility:[facility] Start: 06-27-2017 End: 06-27-2017 Patient encounter ALEXJONH PEREZ Facility:[facility] Start: 06-11-2017 Patient encounter ALEXJONH PEREZ Facility:[facility] Start: 02-01-2015 End: 02-01-2015 Patient encounter procedure Shi Lester Work Phone: [facility] Start: 02-01-2015 Results Only Shi ford Work Phone: [facility] Start: 04-17-2010 End: 04-17-2010 Patient encounter procedure Cruz Sanchez Work Phone: [facility] Start: 04-17-2010 Results Only Cruz Nguyen ippitt Work Phone: [facility] Start: 07-31-2009 End: 07-31-2009 Patient encounter procedure Clotilde Juradochastity Doss Work Phone: [facility] Start: 07-31-2009 Results Only Clotilde Stone V rabec Work Phone: [facility] Start: 05-07-2001 End: 05-07-2001 Patient encounter procedure Sae Resendiz Work Phone: [facility] Start: 05-07-2001 Results Only Sae Arnett Pap as Work Phone: [facility] Procedures Date Procedure Procedure Detail Performing Clinician [...] quantitative blood xcpt reagent strip Connie Perez FACULTY RESEARCH ASSISTANT - ORNAMENTAL METAL FABRICATOR APPRENTICE Work Phone: Start: 06-20-2023 Prothrombin time Sonal Perez FACULTY RESEARCH ASSISTANT - ORNAMENTAL METAL FABRICATOR APPRENTICE Work Phone: Start: 06-19-2023 Glucose quantitative blood xcpt reagent strip Connie Perez [facility] Work Phone: Start: 06-19-2023 Glucose quantitative blood xcpt reagent strip Connie Perez [facility] Work Phone: Start: 06-19-2023 Glucose quantitative blood xcpt reagent strip Connie Perez [facility] Work Phone: Start: 06-19-2023 Prothrombin time Sonal Perez [facility] Work Phone: Start: 06-19-2023 Glucose quantitative blood xcpt reagent strip Connie Perez [facility] Work Phone: Start: 06-19-2023 Basic metabolic pane l calcium total Connie Perez [facility] Work Phone: Start: 06-18-2023 Glucose quantitative blood [...] metabolic pane l calcium total Connie Perez [facility] Work Phone: Start: 06-17-2023 Glucose quantitative blood xcpt reagent strip Generic Provider Poct Start: 06-17-2023 Prothrombin time Talon Dinero MD Work Phone: Start: 06-17-2023 Radiologic exam ches t single view Shayne Fonseac MD Work Phone: Start: 06-17-2023 Ecg routine ecg w/le ast 12 lds trcg only w/o i&r Shayne Fonseca MD Work Phone: Start: 06-16-2023 Ct upper extremity w /o contrast material Deondre Kaufman MD Work Phone: Start: 06-16-2023 Antibody screen JAYSHREE CORTEZ Comment on above: Performed By: #### L [id number] ####Single Pointed Operator: ALEXANDRA BUSTAMANTE ([id number])[facility] ([facility])[address] [place] [address] Start: 06-16-2023 End: 06-16-2023 Radex shoulder complete [...] Activity Detail Author Start: 09-13-2024 Lamotrigine measurement [facility] Start: 09-13-2024 Measurement of substance [facility] Start: 09-11-2024 Patient discharge [facility] Start: 09-11-2024 Complete blood count [facility] Start: 09-10-2024 Following clinical p athway protocol [facility] Start: 09-10-2024 Transfusion of blood product [facility] [facility] Start: 09-10-2024 [address]iration [address] [facility] Start: 09-10-2024 Assessment of risk o f venous thromboembolism [facility] Start: 09-10-2024 Cardiac monitoring [facility] Start: 09-10-2024 Catheterization of vein [facility] Start: 09-10-2024 Consultation [facility] Start: 09-10-2024 Continuous pulse oximetry [facility] Start: 09-10-2024 Electroencephalogram [facility] Start: 09-10-2024 Elevation of head of bed [facility] Start: 09-10-2024 Exercises [facility] Start: 09-10-2024 Insertion of cathete r into peripheral vein [facility] Start: 09-10-2024 Notification of physician [facility] Start: 09-10-2024 Oxygen therapy [facility] Start: 09-10-2024 Patient referral to dietitian [facility] Start: 09-10-2024 Providing care accor ding to standard [facility] Start: 09-10-2024 Referral to occupati onal therapist [facility] Start: 09-10-2024 Referral to service [facility] Start: 09-10-2024 Speech therapy assessment [facility] Start: 09-10-2024 Telemedicine consult ation with patient [facility] Start: 09-10-2024 Tobacco use cessatio n education [facility] Start: 09-10-2024 Vital signs measurements [facility] Start: 09-10-2024 End: 09-10-[address] [facility] Start: 09-10-2024 Verification routine [facility] Start: 09-10-2024 MRI of brain without contrast Brain without Contrast [facility] Start: 09-10-2024 Admission procedure [facility] Start: 09-10-2024 [facility] Start: 09-10-2024 Bacteria identified in Urine by Culture Urine Culture [facility] Start: 09-10-2024 Urine culture [facility] Start: 09-10-2024 Oxygen therapy [facility] Start: 09-10-2024 [facility] Start: 09-08-2024 Lamotrigine measurement [facility] Start: 01-06-2024 Urine microalbumin profile DTA P,TDAP,TD (1 - Tdap) [facility] Comment on above: Postponed from 06/23 (Declined at this time) Start: 07-28-2023 ADVANCE DIRECTIVE DISCUSSION A DVANCE DIRECTIVE DISCUSSION [facility] Start: 06-16-2023 Application long arm splint shoulder hand APPLY LONG ARM SPLINT [facility] Start: 06-16-2023 [facility] Start: 03-31-2023 Medicare Advantage A nnual Wellness Visit Medicare Advantage Annual Wellness Visit [facility] Start: 01-20-2023 Serum immunofixation [facility] Start: 01-20-2023 Urine immunofixation [facility] Start: 12-28-2022 Patient discharge [facility] Start: 12-28-2022 [facility] Start: 12-27-2022 Following clinical p athway protocol [facility] Start: 12-27-2022 Assessment of risk o f venous thromboembolism [facility] Start: 12-27-2022 Catheterization of vein [facility] Start: 12-27-2022 Incentive spirometry [facility] Start: 12-27-2022 Inhalation therapy procedure [facility] Start: 12-27-2022 Insertion of cathete r into peripheral vein [facility] Start: 12-27-2022 Measuring intake and output [facility] Start: 12-27-2022 Neurological assessment [facility] Start: 12-27-2022 Providing care accor ding to standard [facility] Start: 12-27-2022 Provision of activit y privileges [facility] Start: 12-27-2022 Referral to occupati onal therapist [facility] Start: 12-27-2022 Referral to service [facility] Start: 12-27-2022 Speech therapy assessment [facility] Start: 12-27-2022 [facility] Start: 12-27-2022 Admission procedure [facility] Start: 11-15-2022 Patient discharge [facility] Start: 11-15-[address] [facility] Start: 11-14-2022 Following clinical p athway protocol [facility] Start: 11-14-2022 Assessment of risk o f venous thromboembolism [facility] Start: 11-14-2022 Cardiac monitoring [facility] Start: 11-14-2022 Catheterization of vein [facility] Start: 11-14-2022 Continuous pulse oximetry [facility] Start: 11-14-2022 Elevation of head of bed [facility] Start: 11-14-2022 Exercises [facility] Start: 11-14-[address] anned interventions [facility] Start: 11-14-2022 Insertion of cathete r into peripheral vein [facility] Start: 11-14-2022 Measuring intake and output [facility] Start: 11-14-2022 MRI of brain without contrast Brain without Contrast [facility] Start: 11-14-2022 Notification of physician [facility] Start: 11-14-2022 Oxygen therapy [facility] Start: 11-14-2022 Patient referral to dietitian [facility] Start: 11-14-2022 Providing care accor ding to standard [facility] Start: 11-14-2022 Referral to occupati onal therapist [facility] Start: 11-14-2022 Referral to service [facility] Start: 11-14-2022 Speech therapy assessment [facility] Start: 11-14-2022 Tobacco use cessatio n education [facility] Start: 11-14-2022 [facility] Start: 11-14-2022 Verification routine [facility] Start: 11-14-2022 Admission procedure [facility] Start: 11-14-2022 Patient referral to dietitian [facility] Start: 09-18-2022 Patient referral [facility] Work Phone: Start: 09-18-2022 [place] and lambda light chains [facility] Start: 09-18-2022 Thiamine measurement [facility] Start: 09-17-2022 [facility] Start: 03-26-2020 Hepatitis B screening URINE ALBUMIN:CREATININE RATIO [facility] Start: 03-26-2020 Hepatitis B surface antibody level LDL CHOLESTEROL [facility] Start: 11-30-2019 Influenza vaccination INFLUENZA (#1) [facility] Start: 10-01-2019 [object Object] [facility] Start: 09-25-2019 HbA1c (Bld) [Mass fraction] HBA1C [facility] Start: 07-07-2018 Hepatitis C antibody , confirmatory test DILATED RETINAL EXAM [facility] Start: 07-20-2013 DTaP/Tdap/Td Vaccine s (1 - Tdap) DTaP/Tdap/Td Vaccines (1 - Tdap) [facility] Start: 12-05-2010 SHINGRIX VACCINE (2 of 3) CONTRERAS GRIX VACCINE (2 of 3) [facility] Start: 12-05-2010 Zoster Vaccines (2 of 3) Zoste r Vaccines (2 of 3) [facility] Start: 1995 RSV Immunization age d 60 or older (1 - 1-dose 60+ series) RSV Immunization aged 60 or older (1 - 1-dose 60+ series) [facility] Start: 1947 Depression Screening Depression Scre ening [facility] Start: 1935 Screening for osteoporosis Bone Dens ity Scan [facility] Albumin [Moles/volum e] in Serum or Plasma [facility] Albumin/Globulin ratio [facility] Anion gap in Serum or Plasma [facility] Anion gap measurement [facility] Ankle brachial pressure index [facility] Blood ammonia measurement [facility] Blood ammonia measurement [facility] BUN/Creatinine ratio [facility] BUN/Creatinine ratio [facility] Calcium [Mass/volume ] in Serum or Plasma [facility] Calcium [Mass/volume ] in Serum or Plasma [facility] Carbon dioxide, tota l [Moles/volume] in Central venous blood [facility] Carbon dioxide, tota l [Moles/volume] in Serum or Plasma [facility] Chloride [Moles/volu me] in Serum or Plasma [facility] Cholesterol [Mass/vo lume] in Serum or Plasma [facility] Cholesterol [Mass/vo lume] in Serum or Plasma [facility] Cholesterol in HDL [Mass/volume] in Serum or Plasma [facility] Cholesterol in HDL [Mass/volume] in Serum or Plasma [facility] Cholesterol in LDL [Mass/volume] in Serum or Plasma [facility] Creatinine [Mass/vol ume] in Serum or Plasma [facility] Creatinine [Moles/vo lume] in Serum or Plasma [facility] Electrophoresis: [id number] [facility] Electrophoresis: andrew ma globulin [facility] Erythrocyte mean cor puscular volume determination [facility] Globulin measurement [facility] Glucose [Mass/volume ] in Serum or Plasma [facility] Glucose [Mass/volume ] in Serum or Plasma [facility] Hematocrit [Volume F raction] of Blood [facility] Hematocrit [Volume F raction] of Blood [facility] Hemoglobin [Mass/vol ume] in Blood [facility] Hemoglobin [Mass/vol ume] in Blood [facility] IgA [Mass/volume] in Serum or Plasma [facility] IgG [Mass/volume] in Serum or Plasma [facility] IgM [Mass/volume] in Serum or Plasma [facility] Ontonagon/lambda light c nat ratio [facility] Lambda light chains. free [Mass/volume] in Serum or Plasma [facility] Lamotrigine measurement [facility] Leukocytes [#/volume ] in Blood [facility] Leukocytes [#/volume ] in Blood [facility] Low density lipoprot ein cholesterol measurement [facility] Mean corpuscular hem oglobin concentration determination [facility] Mean corpuscular hem oglobin concentration determination [facility] Mean corpuscular hem oglobin determination [facility] Mean corpuscular hem oglobin determination [facility] Measurement of renal function [facility] Measurement of renal function [facility] MR Cervical spine [facility] MR Lumbar spine [facility] Neutrophil count [facility] Neutrophil percent differential count [facility] Patient Education [facility] Work Phone: Patient referral [facility] Work Phone: Platelets [#/volume] in Blood [facility] Platelets [#/volume] in Blood [facility] Potassium [Moles/vol ume] in Serum or Plasma [facility] Potassium measurement [facility] Protein electrophore sis panel - Serum or Plasma [facility] Red blood cell count [facility] Red blood cell count [facility] Red cell distributio n width determination [facility] Red cell distributio n width determination [facility] Serum chloride measurement [facility] Serum protein electrophoresis [facility] Sodium [Moles/volume ] in Serum or Plasma [facility] Sodium measurement [facility] Total cholesterol:HD L ratio measurement [facility] Triglycerides measurement [facility] Triglycerides measurement [facility] Troponin T.cardiac [Mass/volume] in Serum or Plasma by High sensitivity method [facility] Troponin T.cardiac [Mass/volume] in Serum or Plasma by High sensitivity method [facility] Urea nitrogen [Mass/ volume] in Serum or Plasma [facility] Urea nitrogen [Mass/ volume] in Serum or Plasma [facility] Urine culture Urine Culture [facility] Urine kappa light ch ain measurement [facility] US Carotid arteries [facility] VLDL cholesterol measurement [facility] VLDL cholesterol measurement [facility] Immunizations Immunization Date Immunization Notes Care Provider [facility] 06-[facility]-2020 Covid (Moderna) Dr. Rosemary mixon Work Phone: [facility] 05-05-2020 Covid (Moderna) Dr. Rosemary mixon Work Phone: [facility] 04-27-2019 influenza, high dose seasonal, preservative-free Jo Perez [facility] 01-05-2018 influenza, high dose seasonal, preservative-free Jo Perez [facility] 12-12-2014 influenza, seasonal, injectable Jo Perez [facility] 06-15-2014 pneumococcal conjuga te vaccine, 13 valent Jo Perez [facility] 12-06-2013 influenza, seasonal, injectable Jo Lamasski [facility] 07-19-2013 tetanus and diphther ia toxoids, adsorbed, preservative free, for adult use (2 Lf of tetanus toxoid and 2 Lf of diphtheria toxoid) Alljonh Jeanmarienéstorkaron [facility] 01-25-2013 influenza, seasonal, injectable Jo Jeanmarienéstorladariusdonna [facility] 01-13-2012 influenza, seasonal, injectable Jo Jeanmarienéstorkaron [facility] 02-11-2011 influenza, seasonal, injectable Jo Jeanmarienéstorkaron [facility] 10-10-2010 zoster vaccine, live Jo Martinez [facility] 03-31-2006 pneumococcal polysaccharide vaccine, 23 valent Alljonh Rashida [facility] Payers Date Payer Category Payer Self-pay [id number] 2023 Medicare [employer] MEDICARE UHC AARP MEDICARE ADVANTAGE [id number] 2023-Present [phone] [address] [address] [place] [address] Medicare HMO [id number] 2023 Unknown [id number] 2005 Unknown [id number] 1.2.840.239540.1.13.159.2.7.3 .217840.315 1935 Unknown [id number] 2.16.840.1.000553.3.579.2.278 1935 Unknown [id number] 2.16.840.1.743911.3.579.2.278 1935 Unknown [id number] 2.16.840.1.928264.3.579.2.278 1935 Unknown [id number] 2.16.840.1.450915.3.579.2.278 1935 Unknown [id number] 2.16.840.1.980458.3.579.2.278 1935 Unknown [id number] 2.16840.1.251148.3.579.2.278 1935 Unknown [id number] 2.16840.1.443005.3.579.2.278 Medicare MEDICARE PART A B [id number] Unknown [id number] 2.16840.1.376803.3.579.2.462 Unknown [id number] 2.840.1.405634.3.579.2.462 Unknown [id number] 2.840.1.182988.3.579.2.462 Unknown [id number] 2.840.1.499233.3.579.2.462 Unknown [id number] 2.840.1.363170.3.579.2.462 Unknown [id number] 2.840.1.035956.3.579.2.462 Unknown [id number] 2.840.1.043803.3.579.2.462 Unknown [id number] 2.840.1.629963.3.579.2.462 Unknown [id number] 2.840.1.744155.3.579.2.462 Unknown [id number] 2.840.1.456790.3.579.2.462 Unknown [id number] 2.840.1.961937.3.579.2.462 Unknown [id number] 2.16840.1.454577.3.579.2.462 Unknown [id number] 2.840.1.782058.3.579.2.462 Unknown [id number] 2.840.1.607349.3.579.2.462 Unknown [id number] 2.16.840.1.274244.3.579.2.462 Unknown [id number] 2.840.1.374730.3.579.2.462 Unknown [id number] 2.16.840.1.481791.3.579.2.462 Unknown [id number] 2.840.1.804348.3.579.2.462 Unknown [id number] 2.840.1.130911.3.579.2.462 Unknown [id number] 2.840.1.194158.3.579.2.462 Unknown [id number] 2.840.1.281899.3.579.2.462 Unknown [id number] 2.840.1.977012.3.579.2.462 Unknown [id number] 2.840.1.806993.3.579.2.462 Unknown [id number] 2.840.1.494042.3.579.2.462 Unknown [id number] 2.840.1.828995.3.579.2.462 Unknown [id number] 2.840.1.497785.3.579.2.462 Unknown [id number] 2.840.1.292501.3.579.2.462 Unknown [id number] 2.840.1.427928.3.579.2.462 Unknown [id number] 2.840.1.730972.3.579.2.462 Unknown [id number] 2.840.1.372588.3.579.2.462 Unknown [id number] 2.16840.1.323294.3.579.2.462 Unknown [id number] 2.840.1.942526.3.579.2.462 Unknown [id number] 2.840.1.402617.3.579.2.462 Unknown [id number] 2.16.840.1.349979.3.579.2.462 Unknown [id number] 2.16.840.1.333955.3.579.2.462 Unknown [id number] 2.16.840.1.174194.3.579.2.462 Unknown [id number] 2.16.840.1.994253.3.579.2.462 Unknown [id number] 2.16.840.1.161501.3.579.2.462 Unknown [id number] 2.16.840.1.401359.3.579.2.462 Unknown [id number] 2.16.840.1.661790.3.579.2.462 Unknown [id number] 2.16.840.1.983256.3.579.2.462 Unknown [id number] 2.16.840.1.354353.3.579.2.462 Unknown [id number] 2.16.840.1.453771.3.579.2.462 Social History Date Type Detail Facility Start: 05-13-2019 End: 09-11-2024 Tobacco smoking status NHIS Former smoker [facility] End: 03-20-2008 History of tobacco use Current smoker [facility] End: 03-20-2008 History of tobacco use Cigarette Smoker [facility] Start: 05-13-2019 End: 06-17-2023 Cigarettes smoked current (pack per day) - Reported [facility] Start: 05-13-2019 End: 06-18-2023 Tobacco use and exposure Never used [facility] Start: 05-13-2019 Alcohol intake Current non-dr lapel padder of alcohol (finding) [facility] Start: 1935 Sex Assigned At Not on file [facility] Exposure to SARS-CoV -2 (event) Not sure [facility] Start: 02-11-2022 End: 06-16-2023 Tobacco smoking status MTIS Unknown if ever smoked [facility] Start: 04-19-2020 Rare [facility] Start: 04-19-2020 None [facility] Start: 04-19-2020 Spouse/ Signif icant Other [facility] Start: 08-11-2020 Non-smoker [facility] Start: 1935 Sex Assigned At Female [facility] Start: 06-18-2023 Tobacco smoking stat us NHIS Never smoked tobacco [employer] Start: 06-17-2023 End: 06-18-2023 [facility] Infoities [employer] Has the [employer], or [employer] threatened to shut off services in your home in past 12Mo No [facility] How often to you hav e a drink containing alcohol? Never [employer] How many standard drinks containing alcohol do you have on a typical day? Patient does not drink [facility] (I/We) worried wheth er (my/our) food would run out before (I/we) got money to buy more. Never true [employer] Start: 06-04-2024 End: 07-20-2024 Sex Female (finding) [facility] Medical Equipment Procedure Code Equipment Code [...] instructed [employer] Cancellous 30cc 1-8 - [id number] - [id number] Start: 06-18-2023 Plate Hum Dist 2.7/3.5 [id number]_imp Start: 06-18-2023 Plate Va Olcrn 2.7/3.5 2h R - [id number] Start: 06-18-2023 Plate Va M-D-Hum 2.7/3.5 1h L - [id number] Start: 06-18-2023 Screw Lck Va 2.1i31b-A T8 Rcs - [id number]_imp Start: 06-18-2023 Screw Lck Va 2.7x58 S-T T8 Rcs - [id number]_imp Start: 06-18-2023 Screw Lck Va 2.3h79b-S T8 Rcs - [id number]_imp Start: 06-18-2023 Screw Lck Va 2.1w55w-Z T8 Rcs - [id number] 83967_imp Start: 06-18-2023 Screw Lck Va 2.0b88e-S T8 Rcs - [id number]_imp Start: 06-18-2023 Screw Lck Va 2.7x50 S-T T8 Rcs - [id number]_imp Start: 06-18-2023 Screw Crtx 3.5x22mm S-T - [id number] Start: 06-18-2023 Screw Crtx 3.5x26mm S-T - [id number] Start: 06-18-2023 Screw Lck Va 2.8k25z-U T8 Rcs - [id number]_imp Start: 06-18-2023 Screw Lck Va 2.7a26i-Z T8 Rcs - [id number]_imp Start: 06-18-2023 Screw Lck Va 2.7x56 S-T T8 Rcs - [id number] 83956_imp Start: 06-18-2023 Screw Crtx 3.5x28mm S-T - [id number] 83957_imp Start: 06-18-2023 Screw Crtx 3.5x30mm S-T - [id number]_imp Start: 06-18-2023 Screw Lck Va 2.7f03u-A T8 Rcs - [id number] 83959_imp Start: 06-18-2023 Screw Lck Va 2.2n93u-F T8 Rcs - [id number] 83961_imp Start: 06-18-2023 Goals Date Patient Goal Desired Activity /State Functional Status Date Assessment Result Facility 09-11-2024 Functional status Ambulates [facility] Work Phone: 12-28-2022 Functional status Ambulates [facility] Work Phone: 11-15-2022 Functional status Chair [facility] Work Phone: Mental Status Date Assessment Result Facility 09-11-2024 Cognitive function Voice/Name [facility] Work Phone: 09-10-2024 Cognitive function Voice/Name [facility] Work Phone: 09-08-2024 Cognitive function Voice/Name [facility] Work Phone: 12-28-2022 Cognitive function Voice/Name [facility] Work Phone: 11-18-2022 Cognitive function Level Of Cons ciousness Awake;Alert;Appropriate [facility] Work Phone: 11-15-2022 Cognitive function Appropriate;Cooperativ e [facility] Work Phone: 11-14-2022 Cognitive function Voice/Name [facility] Work Phone: 11-14-2022 Cognitive function Voice/Name [facility] Work Phone: 09-08-2022 Cognitive function Awake;Alert;A ppropriate;Follow s Commands [facility] Work Phone: 02-11-2022 Cognitive function Awake;Alert;Appropriat e [facility] Work Phone: Clinical Notes 02-14-2007 to 09-11-2024 Note Date & Type Note Facility 09-11-[address] [facility] 09-11-2024 Procedure note [facility] 09-11-2024 Discharge [address] [facility] 09-11-2024 Discharge summary Note Date/Time September 11, 2024 2:40pm [facility] Medical Records Department [address] [place] [address] Instructions for Home/Discharge Instructions 09/11/24 1214 MR#: [id number] Acct: [id number] Name: EZRA GONZALEZ Rep #:[id number] : 1935 89 From: Matthew carbajal DO [...] Thurman DO; Ashu Leonard MD ~ Signed [facility] Work Phone: 1(755) 387-731406-14-2025 Discharge summary Author Matthew Oro [facility] [facility] Note Date/Time September 11, 2024 3:14 pm [facility] Medical Records Department [address] [place] [address] Discharge Summary 09/11/24 1214 MR#: [id number] Acct: [id number] Name: EZRA GONZALEZ Rep #:[id number] : 1935 89 From: Matthew Ramirez [facility] PCP: Dr. Chucky Ochoa DO Status:ADM MARIELOS Location: [place] [address] Providers Date of Admission: 09/10/24 Date of [...] is an 89-year-old female who presented to [facility] ED on 09/10/2024 with dysarthria. Short [...] (Auto) 72.3 H, Lymph % (Auto) 16.6 L,[place] % (Auto) 9.1, Eos % (Auto) 1.2, [...] Clarity Clear, Urine pH 5.0, Ur Specific [place] 1.010, Urine Protein 30 H, Urine Glucose [...] Catch Urine Culture - Preliminary GNR lactose pipe jeeper Radiography Diagnostic Testing: Radiology Impression Head/Neck CTA [...] 3:01 pm with readback verification. Reading Location: [id number] Brain MRI 09/10/24 16:07 IMPRESSION: Atrophy and mild microvascular changes Reading Location: [facility] D/C Instructions DC O2, CPAP, BIPAP Needs [...] Self Care Charges/Coding Visit Charges Inpatient E&M: 68066 Disch Hosp >30min 09/11/24 1444 <Electronically signed [...] DO; Dr. Chucky Ochoa DO ~* Signed [facility] Work Phone: 1(752) 538-885606-14-2025 Progress note Author Lenin Tamez [facility] Note Date/Time September 11, 2024 10:[address] [facility] Medical Records Department [address] [place] [address] Progress Note - Neurology 09/11/24 1035 MR#: [id number] Acct: [id number] Name: EZRA GONZALEZ Rep #:[id number] : 1935 89 From: Lenin Morel PCP: Dr. Chucky Ochoa DO Status:ADM MARIELOS Location: [place] [address] Assessment and Plan: Neuro Assessment/Plan Telestroke (Audio/Video Encounter) 89 y/o woman with h/o DM, HTN, Afib on coumadin (INR 2 days ago was 2.9 and 2.4 at [place]) and seizure on lamictal (had last GTC on Friday) p/w transient dysarthria. History is obtained from patient. On my exam, NIHSS-0 and patient reports feeling better. She follows with Dr. Juarez with neurology. CT head- no acute intracranial process. 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 MRI brain - no acute stroke. LDL-100 Diagnosis: TIA Plan: Continue coumadin and statin. Check A1c. Follow up EEG. Continue lamictal.Follow up with neurology as an outpatient. OT/PT/CATEGORY PLANNER. 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 MRI brain - no acute stroke. Today, she reports feeling better with NIHSS-0 EEG Results Procedure Details EEG Procedure Details: EZRA GNOZALEZ is a 89 year old F with [...] (Auto) 72.3 H, Lymph % (Auto) 16.6 L,[place] % (Auto) 9.1, Eos % (Auto) 1.2, [...] Clarity Clear, Urine pH 5.0, Ur Specific [place] 1.010, Urine Protein 30 H, Urine Glucose [...] Catch Urine Culture - Preliminary GNR lactose pipe jeeper Radiography Diagnostic Testing: Radiology Impression Brain CT [...] Atrophy and mild microvascular changes Reading Location: [facility] Rhythm Strip Rhythm Strip: A-fib Rate: [...] and with change in RN caregiver. Freq: [id number] Protocol: Activity Type Activity Date Activity User E-sign Co-sign Detail Recorded Client Recorded Date Recorded By Document 09/11/24 09:08 YOVANY [id number] 09/11/24 09:08 YOVANY 09/11/24 09:08 NIH Stroke [...] Cosigner Signature (if applicable): CC: ~ Signed [facility] Work Phone: 1(971) 845-518506-14-2025 [facility] Medical Records Department [address] [place] [address] Discharge Summary 09/11/24 1214 MR#: [id number] Acct: [id number] Name: EZRA GONZALEZ Rep #: [id number] : 1935 89 From: Matthew Oro DO PCP: Dr. Chucky Ochoa DO Status:ADM MARIELOS Location: [place] [address] Providers Date of Admission: 09/10/24 Date of [...] is an 89-year-old female who presented to [facility] ED on 09/10/2024 with dysarthria. Short [...] and non- distended Anastasia (more content not included)...[facility]06-14-2025 Progress note [facility] Medical Records Department [address] [place] [address] Progress Note - Neurology 09/11/24 1035 MR#: [id number] Acct: [id number] Name: EZRA GONZALEZ Rep #:[id number] : 1935 89 From: Lenin Morel PCP: Dr. Chucky Ochoa, DO Status:ADM MARIELOS Location: [place] [address] Assessment and Plan: Neuro Assessment/Plan Telestroke (Audio/Video Encounter) 89 y/o woman with h/o DM, HTN, Afib on coumadin (INR 2 days ago was 2.9 and 2.4 at [place]) and seizure on lamictal (had last GTC on Friday) p/w transient dysarthria. History is obtained from patient. On my exam, NIHSS-0 and patient reports feeling better. She follows with Dr. Juarez with neurology. CT head- no acute intracranial process. 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 MRI brain - no acute stroke. LDL-100 Diagnosis: TIA Plan: Continue coumadin and statin. Check A1c. Follow up EEG. Continue lamictal.Follow up with neurology as an outpatient. OT/PT/CATEGORY PLANNER. Sign off for now and please call [...] days ago was 2.9 and 2.4 at [place]) and seizure on lamictal (had last GTC on Friday) p/w transient dysarthria. History is obtained from patient. On my exam, NIHSS-0 and patient reports feeling better. She follows with Dr. Juarez with neurology. CT head- no acute intracranial process. 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 MRI brain - no acute stroke. Today, [...] %(Auto) 72.3 H, Lymph % (Auto) 16.6 L,[place] % (Auto) 9.1, Eos % (Auto) 1.2, [...] Clarity Clear, Urine pH 5.0, Ur Specific [place] 1.010, Urine Protein 30 H, Urine Glucose [...] Catch Urine Culture - Preliminary GNR lactose pipe jeeper Radiography Diagnostic Testing: Radiology Impression Brain CT [...] Atrophy and mild microvascular changes Reading Location: [facility] Rhythm Strip Rhythm Strip: A-fib Rate: 75 [...] and with change in RN caregiver. Freq: [id number] Protocol: Activity Type Activity Date Activity User E-sign Co-sign Detail Recorded Client Recorded Date Recorded By Document 09/11/24 09:08 YOVANY [id number] 09/11/24 09:08 YOVANY 09/11/24 09:08 NIH Stroke [...] Cosigner Signature (if applicable): CC: ~ Signed [facility]06-13-2025 History and physical note Author Matthew Oro [facility] Note Date/Time September 10, 2024 5:[address] [facility] Medical Records Department [address] [place] [address] H&P Exam - Hospitalist 09/10/24 1603 MR#: [id number] Acct: [id number] Name: EZRA GONZALEZ Rep #:[id number] : 1935 89 From: Matthew carbajal DO PCP: Dr. Chucky Ochoa, DO Status:ADM MARIELOS Location: [place] [address] HPI - General General Date of Admission: 09/10/24 Date of Service: 09/10/24 Chief Complaint: Dysarthria HPI Narrative EZRA GONZALEZ, is a 89 F who presented to [facility] ED on 09/10/2024 with dysarthria. Patient lives at assisted living at [place]. Has history of seizures and is on [...] any other acute concerns at this time. 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 Reading Location: [id number] Head/Neck CTA 09/10/24 13:55 IMPRESSION: Calcific plaque [...] 3:01 pm with readback verification. Reading Location: [id number] Assessment & Plan Assessment/Plan (1) Difficulty with speech: PLAN: Plan Patient is an 89-year-old female who presented to [facility] ED on 09/10/2024 with dysarthria. 1. [...] 55 minutes. Charges/Coding Visit Charges Inpatient E&M: 52932 Init Hosp L2 09/10/247 <Electronically signed by Matthew Oro DO> Cosigner Signature (if applicable): CC: Dr. Matthew Oro DO; Dr. Chucky Ochoa DO~ Signed [facility] Work Phone: 1(474) 508-101206-13-2025 Discharge summary Author Teri Garcia [facility] Note Date/Time September 10, 2024 4:17 pm [facility] Medical Records Department [address] [place] [address] Emergency Department Summary 09/10/24 MR#: [id number] Acct: [id number] Name: EZRA GONZALEZ Rep #:[id number] : 1935 89 From: Teri Echeverria PCP: Dr. Chcuky Ochoa, DO Status:REG ER Location: ED HPI [...] son Wilfredo (her eldest son) phone number [phone]. He states that she follows with Dr. 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 He also tells me that he talk to her about 615 this morningand she seemed a little off with her mentation as well as her pronunciation. 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 Reading Location: [id number] Head/Neck CTA 09/10/24 13:55 IMPRESSION: Calcific plaque [...] 3:01 pm with readback verification. 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 Level of Consciousness: [...] No aphasia; normal 10. Dysarthria: 1 = Bxlq-xa-[id number] dysarthria; 11. Extinction and Inattention: 0 - [...] your Primary Care Provider. Call [facility] ([phone]) or report to the closest Emergency Room. Call 911 if necessary. 09/10/24 1617 <Electronically signed by Teri Garcia DO> Cosigner Signature (if applicable): CC: Dr. Chucky Ochoa DO ~ Signed [facility] Work Phone: 1(447) 666-913706-13-2025 History and physical note [facility] Medical Records Department [address] [place] [address] H&P Exam - Hospitalist 09/10/24 1603 MR#: [id number] Acct: [id number] Name: EZRA GONZALEZ Rep #:[id number] : 1935 89 From: Matthew carbajal DO PCP: Dr. Chucky Ochoa DO Status:ADM MARIELOS Location: [place] [address] HPI - General General Date of Admission: 09/10/24 Date of Service: 09/10/24 Chief Complaint: Dysarthria HPI Narrative EZRA GONZALEZ, is a 89 F who presented to [facility] ED on 09/10/2024 with dysarthria. Patient lives at assisted living at [place]. Has history of seizures and is on [...] any other acute concerns at this time. 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 Reading Location: [id number] Head/Neck CTA 09/10/24 13:55 IMPRESSION: Calcific plaque at the origin of the right and left internal carotid arteries causing 60% stenosis. Diffuse narrowing of the left posterior cerebral artery as well as the distal branches. Red Alert: Narrowing of Left Pos this is unchanged. The critical information above was relayed directly by me by telephone to Joes Teri on 09/10/2024 at 3:01 pm with readback verification. Reading Location: [id number] Assessment & Plan Assessment/Plan (1) Difficulty with speech: PLAN: Plan Patient is an 89-year-old female who presented to [facility] ED on 09/10/2024 with dysarthria. 1. [...] 55 minutes. Charges/Coding Visit Charges Inpatient E&M: 28567 Init Hosp L2 09/10/24 1727 Cosigner Signature (if applicable): CC: Dr. Matthew Oro, ; Dr. Chucky Ochoa DO~ Signed [facility]06-13-2025 Discharge summary [facility] Medical Records Department [address] [place] [address] Emergency Department Summary 09/10/24 MR#: [id number] Acct: [id number] Name: EZRA GONZALEZ Rep #:[id number] : 1935 89 From: Teri Echeverria PCP: [...] son Wilfredo (her eldest son) phone number [phone]. He states that she follows with Dr. 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 He also tells me that he talk to her about 615 this morningand she seemed a little off with her mentation as well as her pr onunciation. 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 Reading Location: [id number] Head/Neck CTA 09/10/24 13:55 IMPRESSION: Calcific plaque [...] 3:01 pm with readback verification. Reading Location: [id number]-I Rhythm Strip Rhythm Strip: A-fib Rate: 75 Ectopy: None EKG Initial EKG: Attestation: I personally reviewed and interpreted this EKG as follows: Interpretation: Atrial Fibrillation Comments: Atrial fibrillation at a rate of 75 bpm Left axis deviation Moderate voltage criteria for LVH Normal ST segments Management Discussion w/another healthcare provider: Hospitalist, Show Worker and Radiologist Discharge Plan Triage Chief Complaint: [...] DO [Primary Care Provider] - Print Language: Samoan Disposition Disposition: Acute Care Hospital [facility] NIHSS NIHSS 1a. Level of Consciousness: [...] No aphasia; normal 10. Dysarthria: 1 = Zyzf-sl-fjisgsii dysarthria; 11. Extinction and Inattention: 0 - [...] your Primary Care Provider. Call [facility] ([phone]) or report tothe closest Emergency Room. Call 911 if necessary. 09/10/24 1617 Cosigner Signature (if applicable): CC: Dr. Chucky Ochoa DO ~ Signed [facility]06-13-2025 Radiology Diagnostic study note [facility] Imaging Services [address] [place], [place] [address] STROKE CTA Head AND Neck W/Con MR#: [id number] Acct: [id number] Name: EZRA GONZALEZ Rep #: [id number] : 1935 F 89 From: Jian Gipson MD PCP: Dr. Chucky Ochoa DO Status: REG ER Study:STROKE CTA Head AND Neck W/Con Date of Exam: 09/10/24 Exam# [id number] Ordering Dr: Adeel Garcia DO PROCEDURE: STROKE [...] RIGHT Vertebral: Unremarkable. LEFT Vertebral: Unremarkable. Anatomy: [place] anatomy is normal. Aneurysm or [...] 3:01 pm with readback verification. Reading Location: [id number] CC: Dr. Teri Garcia DO; Dr. Chucky Ochoa DO ~ Dry Yard Worker: Signed [facility]06-13-2025 Radiology Diagnostic study note [facility] Imaging Services [address] [place] [address] STROKE Brain/Head without Cont MR#: [id number] Acct: [id number] Name: LISAEZRA MONSIVAISCELYN Rep #: [id number] : 1935 F 89 From: Jian Gipson MD PCP: Dr. Chucky Ochoa DO Status: REG ER Study:STROKE Brain/Head without Cont Date of Exam: 09/10/24 Exam# [id number] Ordering Dr: Adeel Garcia DO PROCEDURE: STROKE [...] 2:05 pm with readback verification. Reading Location: [id number] CC: Dr. Teri Garcia DO; Dr. Chucky Ochoa DO ~ Dry Yard Worker: Signed [facility]06-11-2025 Discharge summary [facility] Medical Records Department [address] [place] [address] Emergency Department Summary 09/08/24 MR#: [id number] Acct: [id number] Name: EZRA GONZALEZ Rep #:[id number] : 1935 89 From: Anoop Blackmon MD [...] Spinal stenosis Osteoarthritis Atherosclerotic heart disease of [place] coronary artery without angina pectoris Type 2 [...] creatinine ratio of 35:1. Glucose is slight [id number] with a normal CO2 anion gap. Labs: Laboratory Results - last 24 hr 09/08/24 12:50 WBC 13.6 H RBC 4.40 Hgb 13.8 Hct 41.4 MCV 94.1 MCH 31.4 MCHC 33.3 RDW Std Deviation 45.2 H RDW Coeff of [place] 13.2 Plt Count 326 MPV 10.8 Immature Gran % (Auto) 0.400 Neut % (Auto) 75.9 H Lymph % (Auto) 16.2 L [place] % (Auto) 6.6 Eos % (Auto) 0.7 [...] with her neurologist Dr. Juarez Print Language: Samoan Disposition Disposition: Home, Self Care What to do if you have Problems For any increased pain, shortness of breath, bleeding, nausea or vomiting, chestpain, or any unexpected problems, contact your Primary Care Provider. Call [facility] ([phone]) or report tothe closest Emergency Room. Call 911 if necessary. 09/08/24 1516 Cosigner Signature (if applicable): CC: Dr. Chucky Ochoa MD ~ Signed [facility]06-11-2025 Discharge summary Author Anoop Blackmon [facility] Note Date/Time September 08, 2024 3:[address] [facility] Medical Records Department [address] [place] [address] Emergency Department Summary 09/08/24 MR#: [id number] Acct: [id number] Name: EZRA GONZALEZ Rep #:[id number] : 1935 89 From: Anoop Blackmon MD [...] Spinal stenosis Osteoarthritis Atherosclerotic heart disease of [place] coronary artery without angina pectoris Type 2 [...] creatinine ratio of 35:1. Glucose is slight [id number] with a normal CO2 anion gap. Labs: Laboratory Results - last 24 hr 09/08/24 12:50 WBC 13.6 H RBC 4.40 Hgb 13.8 Hct 41.4 MCV 94.1 MCH 31.4 MCHC 33.3 RDW Std Deviation 45.2 H RDW Coeff of [place] 13.2 Plt Count 326 MPV 10.8 Immature Gran % (Auto) 0.400 Neut % (Auto) 75.9 H Lymph % (Auto) 16.2 L [place] % (Auto) 6.6 Eos % (Auto) 0.7 [...] with her neurologist Dr. Juarez Print Language: Samoan Disposition Disposition: Home, Self Care What to do if you have Problems For any increased pain, shortness of breath, bleeding, nausea or vomiting, chestpain, or any unexpected problems, contact your Primary Care Provider. Call [facility] ([phone]) or report to the closest Emergency Room. Call 911 if necessary. 09/08/24 1516 <Electronically signed by Anoop Blackmon MD> Cosigner Signature (if applicable): CC: Dr. Chucky Ochoa MD ~ Signed [facility] Work Phone: 1(960) 862-631804-03-2025 Evaluation note* Diagnosis Onset Date Resolution Status Admit Date Longstanding persistent atrial fibrillation acute July 01 10:35am Essential (primary) hypertension chronic July 01, 2024 10:35am History of coronary artery stent placement February 14, 2007 resolved July 01 10:35am [facility] Work Phone: 1(658) 762-206404-03-2025 Evaluation note* Diagnosis Onset Date Resolution Status Admit Date Longstanding persistent atrial fibrillation acute July 01, 025 10:35am Essential (primary) hypertension chronic July 01, 2024 10:35am History of coronary artery stent placement February 14, 2007 resolved July 01, 025 10:35am Difficulty with speech acute [facility] 2024 4:03pm 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 Work Phone: 1([phone]) 831-564502-10-2025 Evaluation note* Diagnosis Onset Date Resolution Status Admit Date Dementia acute May 10, 2024 2:34pm Epilepsy acute May 10, 2024 2:34pm Transient ischemic attack resolved May 10, 2024 2:34pm [facility] Work Phone: 1([phone]) 624-587202-10-2025 Evaluation note* Diagnosis Onset Date Resolution Status Admit Date Dementia acute May 10, 2024 2:34pm Epilepsy acute May 10, 2024 2:34pm Transient ischemic attack resolved May 10, 2024 2:34pm Longstanding persistent atrial fibrillation acute July 01, 025 10:35am Essential (primary) hypertension chronic July 01, 2024 10:35am History of coronary artery stent placement February 14, 2007 resolved July 01, 2024 10:35am [facility] Work Phone: 1(732) 899-975703-22-2024 NoteStart [facility] Note Home Health Referral Educated patient on Home Care and services available. Patient offered choice of available HHC and agreeable to PT/OT services with [facility]. [...] is noted as yes - consider a DRUM HANDLER evaluation once the patient returns home. START PATIENT REGISTRATION INFORMATION Order Information Order Signing Physician: Connie Perez APRN * Service Ordered RN ?: No Service Ordered PT ?: Yes Service Ordered OT ?: Yes Service Ordered ST ?: No Service Ordered DRUM HANDLER?:No Service Ordered FISH FILLETER?: No Following Physician: ALEXANDRA HAGEN Following Physician Overseeing Physician: ALEXANDRA HAGEN (Required for Residents only) Agreeable to Follow? No Date/Time of Call 06/20/23 2:40 PM, Spoke with: BRYAN FOR OFFICE-CONFIRMED WITH JOSEP THIS IS HER PHYSICAN AND CAN SEE RECENT NOTES IN [facility] Care Coordination Same Day SOC?: No Primary Care Physician: ALEXANDRA HAGEN Primary Care Physician Primary Care Physician Address: [address] / [facility] [address] Visit Instructions: N/A Service Discharge Location Type: Assisted Living Service Facility Name: [facility] Service Floor Facility: N/A Service Room No: 105 Demographics Patient Last Name: Lisa Patient First Name: Ezra Language/Communication Barrier: NONE Service Address: [facility] Service City: [facility] ST: [place] Service ZIP: [address] Service (home) Other phone numbers: No relevant phone numbers on file. Emergency Contact: Extended Emergency Contact Information Primary Emergency Contact: Patito [place] Mobile Relation: Son Clock And Watch Assembler needed? No Secondary Emergency Contact: Ty [place] Mobile Relation: Son Admission Information Admit Date: 06/16/2023 Patient status at discharge: Inpatient Admitting Diagnosis: Closed displaced fracture of medial condyle of right humerus, initial encounter [S48.960U] Caregiver Information Caregiver First Name: NA Caregiver [...] medications. Discharge Date: 06/20/23 Referral Source-PACC: (Hospital/Unit): [facility] / E7-707/E7-707 A End PACC [facility]03-22-2024 History of Present illness Narrative* Juanjo Villalba RN - 06/20/2023 3:51 PM EDT Dc via DM cot to [facility] with all belongings * Juanjo Villalba RN - 06/20/2023 3:01 PM EDT Called report to Maryanne at [facility] * Dc Lombardi - 06/20/2023 2:26 PM EDT [facility] Anticoagulation Management Service (RIA) Inpatient Warfarin [...] patient can be classified as high risk ([id number] = 8). 2. Monitor for s/s of bleeding and drug interactions. Will adjust dose accordingly 3. RIA will manage while inpatient Dc Lombardi, PharmD Candidate Toshia Sanches, JpD, BCPS RIA is available daily [phone] via [employer]. If no response on digitalbox Chat then please page [phone]. * Shayne Fonseca MD - 06/20/2023 6:05 [...] off at this time. Please page resident project consultant on Secure Chat with concerns or should [...] original note were not included. PHYSICAL THERAPY [facility] Initial Evaluation Name/MRN: Ezra Gonzalez ([id number]) Evaluation Date: 06/19/2023 Date of : 1935 Admission Date: 06/16/2023 1:38 PM Age: 87 y.o. Room/Bed: [facility]707/[facility] A Discharge Recommendation: Home with Home health PT (return to [place]) Equipment Needed: No Assessment IMPRESSION: 87 y.o. pt admitted to [facility] for closed fracture RUE, s/p ORIF R humerus 06/17. They were Min A for bed mobility, Min A for transfers, and Min A for ambulation. Pt limited d/t balance. If from [place] where she can receive Min A for all ADLs and mobility. Would recommend return to [place] and [facility] PTat discharge. Diagnosis: closed fracture RUE, s/p [...] correction Ambulation Ambulation 1 Assistive device(s) used: FISH FILLETER Assist level: Min Assist Distance (ft): 15' [...] Raw Score (No Stairs) : 18 [facility] Score: Walked 25 ft or more [...] of Care supervision is transferred to a [facility] Therapy Services Physical Therapist. Goals and/or treatment plan was established in collaboration with patient/family/other representatives. * Enedelia Sanches, [facility] - 06/19/2023 1:50 PM EDT [facility] Anticoagulation Management Service (RIA) Inpatient Warfarin Consult HPI: Ezra Gonzalez is a 87 y.o. female admitted on 06/16/2023 for Closed displaced fracture of medial condyle of right humerus, initial encounter [S42.443G] History reviewed. No pertinent past medical history. [...] patient can be classified as high risk ([id number] = 8). 2. Monitor for s/s of bleeding and drug interactions. Will adjust dose accordingly 3. RIA will manage while inpatient Dc Lombardi, JpD Candidate Jp BolanosD, BCPS RIA is available daily [phone] via digitalbox Chat. If no response on digitalbox Chat then please page [phone]. * Kavon Diallo, OT - 06/19/2023 11:54 AM EDT Images from the original note were not included. OCCUPATIONAL THERAPY [facility] Initial Evaluation Name/MRN: Ezra Gonzalez ([id number]) Evaluation Date: 06/19/2023 Date of : 1935 Admission Date: 06/16/2023 1:38 PM Age: 87 y.o. Room/Bed: [facility]70/[facility] A Discharge Recommendation: Continue [...] of Care supervision is transferred to a [facility] Therapy Services Occupational Therapist. Goals and/or treatment plan was established in collaboration with patient/family/other representatives. * JANNETTE Hall CNP - 06/19/2023 9:52 AM EDT Images from the original note were not included. Hospitalist Progress Note 06/19/2023 Subjective: Admit Date: 06/16/2023 PCP: No primary care provider on file. Room#: E7-418/H0-185 A BRIEF HOSPITAL COURSE: Ezra is a [...] Emergency Contact: Patito [place] Mobile Relation: Son Clock And Watch Assembler needed? No Secondary Emergency Contact: Ty [place] Mobile Relation: Son JANNETTE Hall CNP Division of Hospitalist Medicine [facility] * Huma Tavarez MD - [...] be monitored and followed by the diet water technician. NICA Watts * Louisa Cespedes OT - 06/18/2023 8:26 AM EDT Images from the original note were not included. OCCUPATIONAL THERAPY [facility] Name/MRN: Ezra Gonzalez ([id number]) Date: 06/18/2023 OT eval and treat order received. Patient chart reviewed. Per Ortho note, Plan for ORIF od R distal humerus. Will hold evaluation till after surgery. Louisa Cespedes OT * JANNETTE Hall CNP - 06/18/2023 8:00 AM EDT Images from the original note were not included. Hospitalist Progress Note 06/18/2023 Subjective: Admit Date: 06/16/2023 PCP: No primary care provider on file. Room#: E7-772/M6-167 A BRIEF HOSPITAL COURSE: Ezra is a [...] Primary Emergency Contact: GillesrodriguePatito Mobile Relation: Son Clock And Watch Assembler needed? No Secondary Emergency Contact: GillesrodrigueTy Mobile Relation: Son JANNETTE Hall CNP Division of Hospitalist Medicine [facility] * Maryanne Neumann PT - 06/18/2023 7:27 AM EDT Images from the original note were not included. PHYSICAL THERAPY [facility] Name/MRN: Ezra Gonzalez ([id number]) Date: 06/18/2023 PT orders received and chart [...] tomorrow, 06/17. Ok for diet today. NPO @MO. Keep splint C/D/I. Evette Viera MD Orthopaedic Surgery, PGY-5 [phone] * Connie Perez APRN - ORNAMENTAL METAL FABRICATOR APPRENTICE - 06/17/2023 7:46 AM EDT Images from [...] Emergency Contact: Patito Cuba Mobile Relation: Son Clock And Watch Assembler needed? No Secondary Emergency Contact: GillesrodrigueTy Mobile Relation: Son JANNETTE Hall CNP Division of Hospitalist Medicine Acute care [facility] * Shayne Fonseca MD - 06/17/2023 [...] + AIN/PIN/ulnar nerve functions documented in this [facility]03-22-2024 Miscellaneous Notes* Care Coordination - Unknown Case Management - 06/20/2023 2:58 PM EDT Patient Choice Patient Name: EZRA GONZALEZ Date of : 1935 All Providers Sent Referral Name: [facility] Phone: [phone] Address: [address] [place] [address] * Home Care - Vivian Bills RN - 06/20/2023 2:40 PM EDT Start PACC Note Home Health Referral Educated patient on Home Care and services available. Patient offered choice of available HHC and agreeable to PT/OT services with [facility]. [...] is noted as yes - consider a DRUM HANDLER evaluation once the patient returns home. START PATIENT REGISTRATION INFORMATION Order Information Order Signing Physician: Connie Perez APRN * Service Ordered RN ?: No Service Ordered PT ?: Yes Service Ordered OT ?: Yes Service Ordered ST ?: No Service Ordered DRUM HANDLER?:No Service Ordered FISH FILLETER?: No Following Physician: ALEXANDRA HAGEN Following Physician Overseeing Physician: ALEXANDRA HAGEN (Required for Residents only) Agreeable to Follow? No Date/Time of Call 06/20/23 2:40 PM, Spoke with: BRYAN FOR OFFICE-CONFIRMED WITH JOSEP THIS IS HERPHYSICAN AND CAN SEE RECENT NOTES IN [facility] Care Coordination Same Day SOC?: No Primary Care Physician: ALEXANDRA HAGEN Primary Care Physician Primary Care Physician Address: [address] [place] [address] [address] / [facility] [address] Visit Instructions: N/A Service Discharge Location Type: Assisted Living Service Facility Name: [facility] Floor Facility: N/A Service Room No: 105 Demographics Patient Last Name: Lisa Patient First Name: Ezra Language/Communication Barrier: NONE Service Address: [address] Service City: [facility] ST: [place] Service ZIP: [address] Service (home) Other phone numbers: No relevant phone numbers on file. Emergency Contact: Extended Emergency Contact Information Primary Emergency Contact: Patito [place] Mobile Relation: Son Clock And Watch Assembler needed? No Secondary Emergency Contact: Ty [place] Mobile Relation: Son Admission Information Admit Date: 06/16/2023 Patient status at discharge: Inpatient Admitting Diagnosis: Closed displaced fracture of medial condyle of right humerus, initial encounter [S42.523T] Caregiver Information Caregiver First Name: NA Caregiver [...] medications. Discharge Date: 06/20/23 Referral Source-PACC: (Hospital/Unit): [facility] / E7-707/E7-707 A End PACC Note [...] pt order lunch. Notified TONIO, RN and munitions worker. . * Care Coordination - Shikha Gray RN - 06/20/2023 11:01 AM EDT I SPOKE WITH DONOVAN, BOTTOM BUFFER AT [facility]. THEY CAN TAKE PT BACK TODAY. THEY CAN PROVIDE TRANSPORTATION BACK TO FACILITY AROUND 3 PM. AWARE PT WILL NEED PT AT FACILITY, THEY USE [facility], DID LET HC LIAISON NOW. [...] PM EDT Date: 06/16/2023 - 06/18/2023 Location: [facility] OR Name: Ezra Gonzalez, : 1935, Diagnosis Pre-op Diagnosis * Closed displaced fracture of medial condyle of right humerus, initial encounter [S42.461A] Post-op Diagnosis * Closed displaced fracture of medial condyle of right humerus, initial encounter [S42.461A] Procedures OPEN REDUCTION INTERNAL FIXATION RIGHT DISTAL HUMERUS 52157 - CA OPTX HUMERAL SHFT FX W/PLATE/SCREWS W/WOCERCLAGE Surgeons * Benitez Givens - Primary Procedure Summary Anesthesia: * No anesthesia type entered * ASA: III Estimated Blood Loss: Minimal Drains: * None in log * Staff: Nursing Clinical Director: Vivian Herrera RN Scrub Person: Linda Alvarez [...] Limits Permission given to speak with patient account development representative/caregiver as indicated: No Confirmation of Payer with patient/family: Yes Payer Name: [facility] : No Confirmation of Primary Care Physician: [...] rest and pain control documented in this [facility]03-22-2024 Note* Care Coordination - Unknown Case Management - 06/20/2023 2:58 PM EDT Patient Choice Patient Name: EZRA GONZALEZ Date of : 1935 All Providers Sent Referral Name: [facility] Phone: [phone] Address: [address] [place] [address] [employer] [id number] Note* Care Coordination - Unknown Case Management - 06/20/2023 2:58 PM EDT Patient Choice Patient Name: EZRA GONZALEZ Date of : 1935 All Providers Sent Referral Name: [facility] Phone: [phone] Address: [address] [place] [address] [employer] [id number] Note* Home Care - Vivian Bills RN - 06/20/2023 2:40 PM EDT Start PACC Note Home Health Referral Educated patient on Home Care and services available. Patient offered choice of available HHC and agreeable to PT/OT services with [facility] - Home Care. Care Types: [...] is noted as yes - consider a DRUM HANDLER evaluation once the patient returns home. START PATIENT REGISTRATION INFORMATION Order Information Order Signing Physician: Connie Perez APRN * Service Ordered RN ?: No Service Ordered PT ?: Yes Service Ordered OT ?: Yes Service Ordered ST ?: No Service Ordered DRUM HANDLER?:No Service Ordered FISH FILLETER?: No Following Physician: ALEXANDRA HAGEN Following Physician Overseeing Physician: ALEXANDRA HAGEN (Required for Residents only) Agreeable to Follow? No Date/Time of Call 06/20/23 2:40 PM, Spoke with: BRYAN FOR OFFICE-CONFIRMED WITH JOSEP THIS IS HERPHYSICAN AND CAN SEE RECENT NOTES IN EPIC Care Coordination Same Day SOC?: No Primary Care Physician: ALEXANDRA HAGEN Primary Care Physician Primary Care Physician Address: [address] / [facility] [address] Visit Instructions: N/A Service Discharge Location Type: Assisted Living Service Facility Name: [facility] Floor Facility: N/A Service Room No: 105 Demographics Patient Last Name: Lisa Patient First Name: Ezra Language/Communication Barrier: NONE Service Address: [address] [place] [address] [address] Service City: [facility] ST: [place] Service ZIP: [address] Service (home) Other phone numbers: No relevant phone numbers on file. Emergency Contact: Extended Emergency Contact Information Primary Emergency Contact: BereketPatito Mobile Relation: Son Clock And Watch Assembler needed? No Secondary Emergency Contact: BereketTy Mobile Relation: Son Admission Information Admit Date: 06/16/2023 Patient status at discharge: Inpatient Admitting Diagnosis: Closed displaced fracture of medial condyle of right humerus, initial encounter [S42.461A] Caregiver Information Caregiver First Name: NA Caregiver Last Name: NA Caregiver Relationship to Patient NA Caregiver Phone Number: NA Caregiver Notes: N/A [employer] List No END PATIENT REGISTRATION INFORMATION Pt [...] medications. Discharge Date: 06/20/23 Referral Source-PACC: (Hospital/Unit): [facility] / E7-707/E7-707 A End PACC Note [id number] [facility]* Home Care - Vivian Bills RN - 06/20/2023 2:40 PM EDT Start PACC Note Home Health Referral Educated patient on Home Care and services available. Patient offered choice of available HHC and agreeable to PT/OT services with [facility] - Home Care. [...] is noted as yes - consider a DRUM HANDLER evaluation once the patient returns home. START PATIENT REGISTRATION INFORMATION Order Information Order Signing Physician: Connie Perez APRN * Service Ordered RN ?: No Service Ordered PT ?: Yes Service Ordered OT ?: Yes Service Ordered ST ?: No Service Ordered DRUM HANDLER?:No Service Ordered FISH FILLETER?: No Following Physician: ALEXANDRA HAGEN Following Physician Overseeing Physician: ALEXANDRA HAGEN (Required for Residents only) Agreeable to Follow? No Date/Time of Call 06/20/23 2:40 PM, Spoke with: LVM FOR OFFICE-CONFIRMED WITH JOSEP THIS IS HERPHYSICAN AND CAN SEE RECENT NOTES IN [facility] Care Coordination Same Day SOC?: No Primary Care Physician: ALEXANDRA HAGEN Primary Care Physician Primary Care Physician Address: [address] [place] [address] [address] / [place] [phone] Visit Instructions: N/A Service Discharge Location Type: Assisted Living Service Facility Name: [facility] Service Floor Facility: N/A Service Room No: 105 Demographics Patient Last Name: Lisa Patient First Name: Ezra Language/Communication Barrier: NONE Service Address: [address] [place] [address] [address] Service City: [facility] ST: [place] Service ZIP: [address] Service (home) Other phone numbers: No relevant phone numbers on file. Emergency Contact: Extended Emergency Contact Information Primary Emergency Contact: GillesrodriguePatito Mobile Relation: Son Clock And Watch Assembler needed? No Secondary Emergency Contact: MariiadennisTy Mobile Relation: Son Admission Information Admit Date: 06/16/2023 Patient status at discharge: Inpatient Admitting Diagnosis: Closed displaced fracture of medial condyle of right humerus, initial encounter [S42.461A] Caregiver Information Caregiver First Name: NA Caregiver Last Name: NA Caregiver Relationship to Patient NA Caregiver Phone Number: NA Caregiver Notes: N/A [employer] List No END PATIENT REGISTRATION INFORMATION Pt [...] medications. Discharge Date: 06/20/23 Referral Source-PACC: (Hospital/Unit): [facility] / E7-707/E7-707 A End PACC Note [id number] NoteHospitalist Discharge Summary Ezra Gonzalez : 1935 Admit date: 06/16/2023 Discharge date: 06/20/2023 Admitting Physician: Jayshree Cortez MD Primary Care Physician: No primary care provider on file. Visit Status: Inpatient Code Status: Full Code BRIEF HOSPITAL COURSE: Ezar is a 87 y.o. female with past [...] primary care provider Schedule (more content not included)...[facility]03-22-2024 Note* Care Coordination - SELINA Magaña - [...] pt order lunch. Notified TONIO RN and munitions worker. . [facility] [id number] Note* Care Coordination - SELINA Magaña - [...] pt order lunch. Notified JAYME ELIZALDE and munitions worker. . [facility] HospitalVvczbe74-37-4278 Note* Care Coordination - Shikha Gray RN - 06/20/2023 11:01 AM EDT I SPOKE WITH DONOVAN, BOTTOM BUFFER AT [facility]. THEY CAN TAKE PT BACK TODAY. THEY CAN PROVIDE TRANSPORTATION BACK TO FACILITY AROUND 3 PM. AWARE PT WILL NEED PT AT FACILITY, THEY USE [facility], DID LET HC LIAISON NOW. WENT TO [...] SECURE CHAT WITH CONNIE PEREZ REGARDING THIS. [facility] HospitalMkhnvn13-85-7655 Note* Care Coordination - Shikha Gray RN - 06/20/2023 11:01 AM EDT I SPOKE WITH DONOVAN, BOTTOM BUFFER AT [facility]. THEY CAN TAKE PT BACK TODAY. THEY CAN PROVIDE TRANSPORTATION BACK TO FACILITY AROUND 3 PM. AWARE PT WILL NEED PT AT FACILITY, THEY USE [facility], DID LET HC LIAISON NOW. WENT TO [...] SECURE CHAT WITH CONNIE PEREZ REGARDING THIS. [facility] [id number] Hospital course Narrative* Connie Perez, FACULTY RESEARCH ASSISTANT - ORNAMENTAL METAL FABRICATOR APPRENTICE - 06/20/2023 10:18 AM EDT Images from [...] as possible for a visit As needed [facility] Orthopedics Go to Appointment scheduled 06/26/23 at 10:[address] Givens. [address] [facility] Complexity of Follow up: [x] Moderate Complexity: follow up within 7-14 calendar days (12653) [] Severe Complexity: follow up within 7 calendar days (85335) Follow up Testing, Pending results or Referrals [...] time frame. Signed: Connie Perez APRN - [employer] [facility] 06/20/2023, 1:11 PM documented in this [facility]03-22-2024 [facility] Progress Note ASSESSMENT AND [...] off at this time. Please page resident project consultant on Secure Chat with concerns or should [...] in all distributions -Motor function intact to [facility]03-21-2024 Note PHYSICAL THERAPY [facility] Initial Evaluation Name/MRN: Ezra Gonzalez ([id number]) Evaluation Date: 06/19/2023 Date of : 1935 Admission Date: 06/16/2023 1:38 PM Age: 87 y.o. Room/Bed: [facility]707/[facility] A Discharge Recommendation: Home with Home health PT (return to [place]) Equipment Needed: No Assessment IMPRESSION: 87 y.o. pt admitted to [facility] for closed fracture RUE, s/p ORIF R humerus 06/17. They were Min A for bed mobility, Min A for transfers, and Min A for ambulation. Pt limited d/t balance. If from [place] where she can receive Min A for all ADLs and mobility. Would recommend return to [place] and [facility] PT at discharge. Diagnosis: closed fracture RUE, [...] correction Ambulation Ambulation 1 Assistive device(s) used: FISH FILLETER Assist level: Min Assist Distance (ft): 15' [...] eval, 1 FA) Dillon (more content not included)...[facility]03-21-2024 Note* Care Coordination - Shikha Gray RN - 06/19/2023 2:05 PM EDT DAY #1 S/P ORIF OF RIGHT ARM. WAITING FOR PT/OT EVALS FOR DC PLANNING. [facility] [id number] Note* Care Coordination - Shikha Gray RN - 06/19/2023 2:05 PM EDT DAY #1 S/P ORIF OF RIGHT ARM. WAITING FOR PT/OT EVALS FOR DC PLANNING. [facility] HospitalVqjulc61-50-0762 NoteOCCUPATIONAL THERAPY [facility] Initial Evaluation Name/MRN: Ezra Gonzalez ([id number]) Evaluation Date: 06/19/2023 Date of : 1935 [...] 06/19/23 Expected End: 07/17/23 (more content not included)...[facility] [id number] Note Hospitalist Progress Note 06/19/2023 Subjective: Admit Date: 06/16/2023 PCP: No primary care provider on file. Room#: E4-835/Q5-914 A BRIEF HOSPITAL COURSE: Ezra is a [...] Full Code Anticipated Dischar (more content not included)...[facility] 06-19-2023 NoteDepartment of Orthopedic Surgery Progress Note [...] -Sensation and motor exam limited 2/[address] [facility] 06-18-2023 NotePatient: Ezra Gonzalez Procedure Summary Date: 06/18/23 Room / Location: [address] Operating Room Anesthesia Start: 1541 Anesthesia [...] discharged once all PACU criteria has been met.[facility] [id number] NotePatient: Ezra Gonzalez Procedure Summary Date: 06/18/23 Room / Location: [facility] Operating Room Anesthesia Start: 1541 Anesthesia Stop: 1915 Procedure: OPEN REDUCTION INTERNAL FIXATION RIGHT DISTAL HUMERUS (Right: Arm Upper) Diagnosis: Closed displaced fracture of medial condyle of right humerus, initial encounter (Closed displaced fracture of medial condyle of right humerus, initial encounter [S42.461A]) Surgeons: Benitez Givnes MD Responsible Provider: Shayne Quesada MD Anesthesia [...] Allowed opportunity for questions and acknowledgement of understanding.[facility]03-20-2024 Note* Perioperative Nursing Note - Irina Khan RN - 06/18/2023 8:11 PM EDT Pt states no need to contact family. RN on floor states she will call pt's son,. [facility] HospitalSysmld88-21-1605 Note* Perioperative Nursing Note - Irina Khan RN - 06/18/2023 8:11 PM EDT Pt states no need to contact family. RN on floor states she will call pt's son,. [address]Iwzjrl48-45-6863 NoteAirway Date/Time: 06/18/2023 3:56 PM Urgency: scheduled General Information and Staff Patient location during procedure: Procedural Resident/ENGINEERING TEACHER: Sae Lora CRNA Performed: ENGINEERING TEACHER Indications and Patient Condition Indications for airway [...] (cm): 21 Number of attempts at approach: [address] [place], [place] [id number] Note Peripheral IV Date/Time: 06/18/2023 4:00 PM Inserted by: JANNETTE Ivey CRNA Placement Needle size: 20 G Laterality: left Location: upper arm. Local anesthetic: none Site prep: alcohol Technique: ultrasound guided Attempts: [address] [place], [place] [address]3-20-2024 NotePeripheral Block Time Out: 06/18/2023 3:28 PM Patient location during procedure: Procedural Start time: 06/18/2023 3:28 PM End time: 06/18/2023 3:32 PM Reason for block: at surgeon's request and post-op pain management Staffing Performed: ENGINEERING TEACHER Resident/ENGINEERING TEACHER: JANNETTE Ivey CRNA Preanesthetic Checklist Completed: patient [...] No paresthesias reported by patient during injectionMedications kncMCEIDmugfq-nbssqhveeki-evpvmsjvnul (TAP) syringe - Injection 30 mL - 06/18/2023 3:28:00 [facility]03-20-2024 NotePatient: Ezra Gonzalez Procedure Information Date/Time: 06/18/23 1530 Procedure: OPEN REDUCTION INTERNAL FIXATION RIGHT DISTAL HUMERUS (Right: Arm Upper) - requesting 330, if can't go at 330 will consider friday Location: [facility] OR [address] [place] [address] Operating Room Surgeons: Benitez Givens MD Relevant [...] by: Thong Francois DO on 06/17/2023 6:39 [facility] 06-18-2023 Hospital Discharge instructions* Discharge Instructions* Evette [...] Emergency Contact: Patito Cuba Mobile Relation: Son Clock And Watch Assembler needed? No Secondary Emergency Contact: Ty Cuba [...] (78.9 kg) Mental Status: {MITCHEL Patient Mental Status:84650} IV Access: {MITCHEL IV Access:77024} Nursing Mobility/ADLs: Walking {MALLY ADL:19618::Independent} Transfer {MALLY ADL:47464::Independent} Bathing {MALLY ADL:01183::Independent} Dressing {MALLY ADL:40666::Independent} Toileting {MALLY ADL:34503::Independent} Feeding {MALLY ADL:81366::Independent} Awning Maker {MALLY ADL:82352::Independent} Med Delivery {yes/no:00860} Wound Care Documentation and Therapy: Wound/Incision 06/18/23 Incision Arm Anterior;Right;Upper (Active) Site Assessment Clean;Dry 06/19/232147 Treatments Sling 06/19/232147 Primary Dressing Xeroform 06/19/23 1024 Dressing Status Clean, dry & intact 06/19/232147 Number of days: 1 Elimination: Continence: Bowel: {yes/no:39142} Bladder: {yes/no:20724} Urinary Catheter: {MITCHEL Urinary Catheter:68297} Colostomy/Ileostomy/Ileal Conduit: {YES / NO:} Date of Last BM: No intake or output data in the 24 hours ending 06/20/23 1025 I/O last 3 completed shifts: In: 711 (9 mL/kg) [P.O.:280; I.V.:114 (1.4 mL/kg); IV Piggyback:317] Out: 600 (7.6 mL/kg) [Urine:350 (0.1 mL/kg/hr); Blood:250] Weight: 78.9 kg Safety Concerns: {MITCHEL Safety Concerns:83332} Impairments/Disabilities: {MITCHEL Impairments/Disabilities:53577} Nutrition Therapy: Current Nutrition Therapy: {MITCHEL Diet List:73966} Routes of Feeding: {routes of feedin} Liquids: {liquid consistency:57339} Daily Fluid Restriction: {daily fluid restriction:72816} Last Modified Barium Swallow with Video (Video Swallowing Test): {done not done:74605} Treatments at the Time of Hospital Discharge: Respiratory Treatments: Oxygen Therapy: {Therapy; copd oxygen:31229} Ventilator: {MITCHEL Ventilator:32479} Rehab Therapies: {GEN THERAPY DISCIPLINE SCAL:0556131} Weight Bearing Status/Restrictions: {POD WEIGHT BEARIN} Other Medical Equipment (for information only, NOT a DME order): {Assistive Devices DME:01253} Other Treatments: Patient's personal belongings (please select all that are sent with patient): {MITCHEL Patient Belongings:25130} RN SIGNATURE: {E-signature:43869} CASE MANAGEMENT/SOCIAL WORK SECTION Inpatient Status Date: 06/16/23 Readmission Risk Assessment Score: @READMISSIONRISKDETAILS@ Discharging to Facility/ Agency [facility]ing [facility] Address: [address] [place] [address] Name: BRUCE MCARTHUR Address:[address] [phone] ~28.4 [address] Fax: Dialysis Facility (if applicable) Name: Address: Dialysis Schedule: Phone: Fax: Transmission And Protection Engineer/[employer] H[employer] Consultant signature: ICIAN SECTION Prognosis: good Condition at [...] in H&P PHYSICIAN SIGNATURE: documented in this [facility]03-20-2024 Note* Brief Op Note - Lexa Aparicio MD - 06/18/2023 3:42 PM EDT Date: 06/16/2023 - 06/18/2023 Location: [facility] OR Name: Ezra Gonzalez, : 1935, Diagnosis Pre-op Diagnosis * Closed displaced fracture of medial condyle of right humerus, initial encounter [S42.271A] Post-op Diagnosis * Closed displaced fracture of medial condyle of right humerus, initial encounter [S42.461A] Procedures OPEN REDUCTION INTERNAL FIXATION RIGHT DISTAL HUMERUS 98062 - CA OPTX HUMERAL SHFT FX W/PLATE/SCREWS W/WOCERCLAGE Surgeons * Benitez Givens - Primary Procedure Summary Anesthesia: * No anesthesia type entered * ASA: III Estimated Blood Loss: Minimal Drains: * None in log * Staff: Nursing Clinical Director: Vivian Herrera RN Scrub Person: Linda Alvarez [...] Givens in 2 weeks -Ortho to follow. [employer] Phone: 1(779) 970-665503-20-2024 Note* Brief Op Note - Lexa Aparicio MD - 06/18/2023 3:42 PM EDT Date: 06/16/2023 - 06/18/2023 Location: [facility] OR Name: Ezra Gonzalez, : 1935, Diagnosis Pre-op Diagnosis * Closed displaced fracture of medial condyle of right humerus, initial encounter [S42.649L] Post-op Diagnosis * Closed displaced fracture of medial condyle of right humerus, initial encounter [S42.312N] Procedures OPEN REDUCTION INTERNAL FIXATION RIGHT DISTAL HUMERUS 60681 - CA OPTX HUMERAL SHFT FX W/PLATE/SCREWS W/WOCERCLAGE Surgeons * Benitez Givens - Primary Procedure Summary Anesthesia: * No anesthesia type entered * ASA: III Estimated Blood Loss: Minimal Drains: * None in log * Staff: Nursing Clinical Director: Vivian Herrera RN Scrub Person: Linda Alvarez [...] Givens in 2 weeks -Ortho to follow. [employer] Work Phone: 1(551) 598-601603-20-2024 Note* Perioperative Nursing Note - Deisy Gonzalez RN - 06/18/2023 3:29 PM EDT Patients wallet and watch locked up with security. OR notified patient states she has latex allergy Patients purse and glasses taken to pacu [id number] Note* Perioperative Nursing Note - Deisy Gonzalez RN - 06/18/2023 3:29 PM EDT Patients wallet and watch locked up with security. OR notified patient states she has latex allergy Patients purse and glasses taken to pacu [id number] Note* Care Coordination - Shikha Gray RN - 06/18/2023 1:03 PM EDT Care Managment Initial Assessment Date: 06/18/2023 Patient Name: Ezra Gonzalez : 1935 Patient Information Source of Information: Patient Cognition/Language: WFL - Within Functional Limits Permission given to speak with patient account development representative/caregiver as indicated: No Confirmation of Payer with patient/family: Yes Payer Name: [facility] : No Confirmation of Primary Care Physician: [...] Transportation/Shopping: Assistance Provider Transportation/Shopping Assistance Provider Name: [address] Transportation Mode: Needs Assistance with Transportation [...] WILL CONTINUE TO FOLLOW. Shikha Gray RN [facility] [id number] Note* Care Coordination - Shikha Gray RN - 06/18/2023 1:03 PM EDT Care Managment Initial Assessment Date: 06/18/2023 Patient Name: zEra Gonzalez : 1935 Patient Information Source of Information: Patient Cognition/Language: WFL - Within Functional Limits Permission given to speak with patient account development representative/caregiver as indicated: No Confirmation of Payer with patient/family: Yes Payer Name: [facility] [place]: No Confirmation of Primary Care Physician: Confirmed [...] Transportation/Shopping: Assistance Provider Transportation/Shopping Assistance Provider Name: [address] Transportation Mode: Needs Assistance with Transportation [...] WILL CONTINUE TO FOLLOW. Shikha Gray RN [facility] HospitalOyoldz06-00-7736 NoteHospitalist Progress Note 06/18/2023 Subjective: Admit Date: 06/16/2023 PCP: No primary care provider on file. Room#: I4-527/K1-991 A BRIEF HOSPITAL COURSE: Ezra is a [...] Primary Emergency Contact: GillesrodriguePatito Mobile Relation: Son Clock And Watch Assembler needed? No Se (more content not included)...[facility]03-20-2024 Note Department of Orthopedic Surgery Progress Note [...] radial/median/ulnar/axillary nerve distributions -Motor + AIN/PIN/ulnar nerve functionsChildren's [facility] of [facility]03-19-2024 Plan of care note* Care Plan - Yvan Sepulveda RN - 06/17/2023 11:35 PM EDT The patient is Moderately Stable - Low risk of patient condition declining or worsening The patient's goals for the shift include rest and pain control The clinical goals for the shift include rest and pain control [id number] Nurse Note* Yvan Sepulveda RN - 06/17/2023 9:22 PM EDT Patient home medication list updated, provider made aware. [address]Uvfwsz72-08-8165 Nurse Note* Yvan Sepulveda RN - 06/17/2023 9:22 PM EDT Patient home medication list updated, provider made aware. documented in this [address]19-2024 Emergency department Note* Di Reyna RN - 06/17/2023 11:52 AM EDT Patient resting in bed at this time, equal unlabored respirations noted and no acute distress, callbell within reach Di Reyna RN 06/17/23 1153 [address]Hiyows32-07-8911 Emergency department Note* Di Reyna RN - [...] Injury Pt arrives via physician's ambulance from [facility] with complaints of right elbow fracture.Patient [...] injury anywhere else. Patient was evaluated at [facility] emergency department prior to arrival and was noted to have a distal humerus fracture. Patient was transferred to [facility] ED for orthopedic consultation. Patient denies any [...] Culture. Procedure Abnormality Status --------- ------ Complete Urinalysis[[id number]] Please view results for these tests on [...] right arm injury. Patient was seen at [facility] prior to arrival was noted to have a distal humerus fracture. Patient transferred to [facility] ED for orthopedic consultation. Nursing notes and medical records reviewed, no recent visits or studies currently patient's presenting symptoms. Differential considerations included distal humerus fracture. Initial medical management includes no initial medical management was initially in the ED. Patient was given 12.5 mcg of fentanyl prior to arrival. Initial workup includes CBC, BMP, PT/INR, type and screen, x-ray right elbow. CT head from [place] ED -shows no signs of acute cranial abnormalities. CXR from [place] ED prior to arrival -blunting of bilateral [...] signed) Emergency Medicine Provider NADIA Ruiz 06/16/23 1632 * Sae Conde MD - 06/16/2023 12:38 PM EDT Emergency Department Encounter [facility] EMERGENCY DEPT Patient: Ezra Gonzalez : 1935 [...] dictating provider for clarification.) Sae Conde MD [facility] Sae Conde MD 06/16/23 1626 documented in this [facility]03-19-2024 Emergency department Note* Alia Foster RN - 06/17/2023 10:00 AM EDT Pt O2 desaturating to mid 80s after receiving dilaudid IV. Pt placed on 2L NC and immediately back up to 95%. MD notified Alia Foster RN 06/17/23 1031 [facility] HospitalLhdavw47-32-8614 NoteHospitalist Progress Note 06/17/2023 Subjective: Admit Date: [...] does not feel safe going back to [place] at this time. Since patient staying ortho [...] Emergency Contact: Patito Cuba Mobile Relation: Son Clock And Watch Assembler needed? No Secondary Emergency Contact: Ty Cuba Mobile Relation: Son Connie PerezJANNETTE - [employer] Division of Hospitalist Medicine [facility]03-19-2024 NoteDepartment of Orthopedic Surgery Progress Note ASSESSMENT [...] ulnar nerve distributions -Motor + AIN/PIN/ulnar nerve functionsChildren[facility] of [facility]03-18-2024 Emergency department Note* Juanjo Pringle RN - [...] US IV line. Juanjo Pringle RN 06/16/23 2093 [facility] HospitalEgbhkg46-22-9941 NoteAttending History and Physical Admit Date: 06/16/2023 [...] Pain control am labs, (more content not included)...[facility]03-18-2024 History and physical note* Jayshree Cortez MD [...] Emergency Contact: Patito Cuba Mobile Relation: Son Clock And Watch Assembler needed? No Secondary Emergency Contact: Ty Cuba Mobile Relation: Son Jayshree Cortez MD Division of Hospitalist Medicine [facility] [employer] Phone: 1([phone]) 144-552303-18-2024 History and physical note* Jayshree Cortez MD [...] Emergency Contact: Patito Cuba Mobile Relation: Son Clock And Watch Assembler needed? No Secondary Emergency Contact: Ty Cuba Mobile Relation: Son Jayshree Cortez MD Division of Hospitalist Medicine [facility] documented in this [facility]03-18-2024 Physician Emergency department Note* NADIA Ruiz - 06/16/2023 12:38 PM EDT Images from the original note were not included. EMERGENCY DEPARTMENT ENCOUNTER Pt Name: Ezra Gonzalez Birthdate 1935 Date of evaluation: 06/16/2023 ED Provider: NADIA Ruiz CHIEF COMPLAINT Chief Complaint Patient presents with Arm Injury Pt arrives via physician's ambulance from [facility] with complaints of right elbow fracture.Patient [...] injury anywhere else. Patient was evaluated at [facility] emergency department prior to arrival and was noted to have a distal humerus fracture. Patient was transferred to [facility] ED for orthopedic consultation. Patient denies any [...] Culture. Procedure Abnormality Status --------- ------ Complete Urinalysis[[id number]] Please view results for these tests on [...] right arm injury. Patient was seen at [facility] prior to arrival was noted to have a distal humerus fracture. Patient transferred to [facility] ED for orthopedic consultation. Nursing notes and medical records reviewed, no recent visits or studies currently patient's presenting symptoms. Differential considerations included distal humerus fracture. Initial medical management includes no initial medical management was initially in the ED. Patient was given 12.5 mcg of fentanyl prior to arrival. Initial workup includes CBC, BMP, PT/INR, type and screen, x-ray right elbow. CT head from [place] ED -shows no signs of acute cranial abnormalities. CXR from [place] ED prior to arrival -blunting of bilateral [...] Emergency Medicine Provider NADIA Ruiz 06/16/23 1635 [facility] HospitalYgkdmb79-88-5156 Physician Emergency department Note* Sae Conde MD - 06/16/2023 12:38 PM EDT Emergency Department Encounter [facility] EMERGENCY DEPT Patient: Ezra Gonzalez : 1935 [...] [employer] Sae Conde MD 06/16/23 1626 [facility] [employer] Phone: 1(242) 421-712909-30-2023 Discharge summary Author Lali Pimentel [facility] December 27, 2022 10:31pm Note Date/Time December 27, 2022 3:52pm [facility] Medical Records Department [address] [place] [address] Emergency Department Summary 12/27/22 MR#: [id number] Acct: [id number] Name: EZRA GONZALEZ Rep #:[id number] : 1935 87 From: Lali Pimentel MD PCP: Dr. Rosemary Doran MD Status:ADM MARIELOS Location: [place] [address] HPI History of Present Illness Chief Complaint: [...] repeat a phrase her speech is garbled. [facility] Medical History Atherosclerotic heart disease of [place] coronary artery without angina pectoris Chronic diastolic [...] % (Auto) 57.4 Lymph % (Auto) 27.9 [place] % (Auto) 10.8 H Eos % (Auto) [...] troponin is normal at 10. Neurology from [facility] felt that the patient should be [...] Provider] - Disposition Disposition: Acute Care Hospital [facility] What to do if you have Problems For any increased pain, shortness of breath, bleeding, nausea or vomiting, chestpain, or any unexpected problems, contact your Primary Care Provider. Call [facility] ([phone]) or report to the closest Emergency Room. Call 911 if necessary. 12/27/222230 <Electronically signed by Lali Pimentel MD> Cosigner Signature (if applicable): CC: Dr. Rosemary Doran MD ~ Signed [facility] Work Phone: 1(158) 278-252909-29-2023 History and physical note Author Lynn Horn [facility] December 27, 2022 6:54pm Note Date/Time December 27, 2022 5:12pm [facility] Medical Records Department [address] [place] [address] H&P Exam - Hospitalist 12/27/22 1709 MR#: [id number] Acct: [id number] Name: EZRA GONZALEZ Rep #:[id number] : 1935 87 From: Lynn Horn DO PCP: Dr. Rosemary Doran MD Status:ADM MARIELOS Location: [facility] [id number]- 1 HPI - General General Date of Admission: 12/27/22 Date of Service: 12/27/22 Chief Complaint: Speech abnormalities HPI Narrative EZRA GONZALEZ, is a 87 F who presented to the emergency department at [facility] on 12/27/2022 with speech abnormalities that started after 1 PM this afternoon. She resides at [facility]. She was last known well at 1 [...] will add aspirin 81 mg as well [facility] Medical History Atherosclerotic heart disease of [place] coronary artery without angina pectoris Chronic diastolic [...] % (Auto) 57.4, Lymph % (Auto) 27.9, [place] % (Auto) 10.8 H, Eos % (Auto) [...] on admission Charges/Coding Visit Charges Inpatient E&M: 43452 Init Hosp L2 12/27/22 9712 <Electronically signed by Lynn Horn DO> Cosigner Signature (if applicable): CC: Dr. Rosemary Doran MD; Dr. Lynn Horn DO~ Signed [facility] Work Phone: 1(951) 955-536309-14-2023 Discharge summary Author María Crane [facility] December 12, 2022 1:40pm Note Date/Time December 12, 2022 1:[address] [facility] Physical Therapy [facility] [address] [place] [address] [address] [place] [address] / REHABILITATION SERVICES DISCHARGE SUMMARY MR#: [id number] Acct: [id number] Name: EZRA GONZALEZ Rep #: [id number] : 1935 87 From: María Cooley Referring Dr.: Dr. Anant Juarez MD Status: REG RCR Insurance: [facility] [address] SELF PAY INSURANCE Patient Information Patient Information: [...] Dr. Anant Juarez MD ~ ELR Signed [facility] Work Phone: 1(547) 531-207911-17-2007 Evaluation note* Diagnosis Onset Date Resolution Status Chronic diastolic (congestive) heart failure chronic Essential (primary) hypertension chronic Paroxysmal atrial fibrillation chronic History of coronary artery stent placement February 142006 resolved [facility] Work Phone: 1(818) 734-849211-17-2007 Evaluation note* Diagnosis Onset Date Resolution Status Chronic diastolic (congestive) heart failure chronic Essential (primary) hypertension chronic History of coronary artery stent placement February 142006 resolved Brain TIA resolved Carotid stenosis acute Difficulty with speech acute Dysarthria resolved Polyneuropathy acute [facility] Work Phone: 1(288) 587-882711-17-2007 Evaluation note* Diagnosis Onset Date Resolution Status Chronic diastolic (congestive) heart failure chronic Essential (primary) hypertension chronic History of coronary artery stent placement February 142006 resolved Brain TIA resolved Carotid stenosis acute Difficulty with speech acute Dysarthria resolved Abnormality of gait and mobility acute Carotid stenosis acute Dementia acute Polyneuropathy acute Transient ischemic attack re solved [facility] Work Phone: 1(274) 515-704311-17-2007 Evaluation note* Diagnosis Onset Date Resolution Status Longstanding persistent atrial fibrillation acute Essential (primary) hypertension chronic History of coronary artery stent placement February 142006 resolved Dementia acute Epilepsy acute Polyneuropathy acute Transient ischemic attack re solved [facility] Work Phone: Consult note Author Chucky Carney [facility] June 16, 2023 10:15am Note Date/Time June 16, 2023 10: 14am [facility] Medical Records Department [address] [place] [address] Consultation - Orthopedics 06/16/23 1012 MR#: [id number] Acct: [id number] Name: EZRA GONZALEZ Rep #:[id number] : 1935 87 From: Chucky Carney MD PCP: Dr. Rosemary oDran MD Status:REG ER Location: ED HPI Consult Data Date of Consult: 06/16/23 HPI Narrative HPI Narrative: EZRA GONZALEZ, is a 87 F who presents with a right distal humerus fracture. Patient apparently is in halfway there a fall. According to the ED physician Dr. Mack who called me today this is a closed neurovascularly intact injury. [facility] Medical History (Updated 06/16/23 @ 10:13 by Chucky Carney MD) Atherosclerotic heart disease of [place] coronary artery without angina pectoris Chronic diastolic [...] % (Auto) 67.8, Lymph % (Auto) 23.0, [place]% (Auto) 7.0, Eos % (Auto) 1.3, Baso [...] applicable): CC: Dr. Rosemary Doran MD~ Signed [facility] Work Phone: Discharge summary Author Neri Mitchell [facility] November 14, 2022 11:57am Note Date/Time November 14, 2022 11 :10am [facility] Medical Records Department [address] [place] [address] Emergency Department Summary 11/14/22 MR#: [id number] Acct: [id number] Name: EZRA GONZALEZ Rep #:[id number] : 1935 87 From: Neri Mitchell MD [...] is on warfarin has history of TIAs. [facility] Medical History Atherosclerotic heart disease of [place] coronary artery without angina pectoris Chronic diastolic [...] % (Auto) 64.0 Lymph % (Auto) 24.9 [place] % (Auto) 7.8 Eos % (Auto) 2.4 [...] No evidence for large vessel occlusion the [place]. N.B. : The above Results were Read Back by Ban Avila MD to Neri Mitchell MD, and understanding confirmed on 11/14/2022 11:41:26 (ET). Electronically Signed: Ban Avila MD at 11:41 EDT , ADDENDUM: 11/14/22 1148 IMPRESSION: No evidence for significant stenosis or occlusion in the carotid or vertebral arteries of the neck. No evidence for large vessel occlusion the [place] region. N.B. : The above [...] Fibrillation Management Discussion w/another healthcare provider: Hospitalist, Show Worker (Stroke neurology Dr. Tamez) and Radiologist (At 1121 for NCCT, negative for bleed) Stroke Documentation Questions Stroke Team Activated: Yes Critical Care Time Critical Care Time: Yes Critical care time (excluding procedures): 30-74 minutes (37 min), Including time spent:, Discussing w/Patient &/or Family/Flight Surgeon, Discussing w/Consultants, Arranging Admission or Transfer and Performing Direct Patient Care at Bedside Discharge Plan Dx/Rx/DC Orders Clinical Impression: Brain TIA, Paroxysmal atrial fibrillation, Subtherapeutic international normalized ratio (INR) Disposition Disposition: Acute Care Hospital [facility] What to do if you have Problems For any increased pain, shortness of breath, bleeding, nausea or vomiting, chestpain, or any unexpected problems, contact your Primary Care Provider. Call [facility] ([phone]) or report to the closest Emergency Room. Call 911 if necessary. 11/14/22 1157 <Electronically signed by Neri Mitchell MD> Cosigner Signature (if applicable): CC: Dr. Rosemary Doran MD ~ Signed [facility] Work Phone: Discharge summary Author Sae Carballo [facility] December 28, 2022 11:09am Note Date/Time December 28, 2022 11:08[address] [facility] [facility] Medical Records Department [address] [place] [id number] Instructions for Home/Discharge Instructions 12/28/22 1107 MR#: [id number] Acct: [id number] Name: EZRA GONZALEZ Rep #:[id number] : 1935 87 From: Sae fleming MD [...] MD; Dr. Lynn Horn DO ~ Signed [facility] Work Phone: evaluation note* Diagnosis Onset Date Resolution Status Atherosclerotic heart diseas e of [place] coronary artery without angina pectoris chronic Chronic diastolic (congestive) heart failure chronic Essential (primary) hypertension chronic Hyperlipidemia chronic Paroxysmal atrial fibrillation chronic [facility] Work Phone: evaluation note* Diagnosis Onset Date Resolution Status Abnormality of gait and mobility acute Carotid stenosis acute Dementia acute Polyneuropathy acute Transient ischemic attack re solved [facility] Work Phone: Evaluation note* Diagnosis Onset Date Resolution Status Abnormality of gait and mobility acute Carotid stenosis acute Dementia acute Polyneuropathy acute Transient ischemic attack re solved Chronic diastolic (congestive) heart failure chronic Essential (primary) hypertension chronic Paroxysmal atrial fibrillation chronic History of coronary artery stent placement February 142006 resolved [facility] Work Phone: Evaluation note* Diagnosis Onset [...] ratio (INR) acute Paroxysmal atrial fibrillation chronic [facility] Work Phone: Evaluation note* Diagnosis Onset Date Resolution Status Abnormality of gait and mobility acute Carotid stenosis acute Dementia acute Polyneuropathy acute Transient ischemic attack re solved Chronic diastolic (congestive) heart failure chronic Essential (primary) hypertension chronic History of coronary artery stent placement February 142006 resolved Brain TIA resolved Carotid stenosis acute [facility] Work Phone: Evaluation note* Diagnosis Onset Date Resolution Status Abnormality of gait and mobility acute Carotid stenosis acute Dementia acute Polyneuropathy acute Transient ischemic attack re solved Chronic diastolic (congestive) heart failure chronic Essential (primary) hypertension chronic History of coronary artery stent placement February 142006 resolved Brain TIA resolved Carotid stenosis acute Difficulty with speech acute Dysarthria acute [facility] Work Phone: Evaluation note* Diagnosis Onset Date Resolution Status Brain TIA resolved Carotid stenosis acute Difficulty with speech acute Dysarthria resolved Abnormality of gait and mobility acute Carotid stenosis acute Dementia acute Polyneuropathy acute Transient ischemic attack re solved [facility] Work Phone: Evaluation note* Diagnosis Onset Date Resolution Status Dementia acute Epilepsy acute Polyneuropathy acute Transient ischemic attack re solved [facility] Work Phone: Evaluation note* Diagnosis Onset Date Resolution Status Dementia acute Epilepsy acute Polyneuropathy acute Transient ischemic attack re solved Longstanding persistent atrial fibrillation acute Essential (primary) hypertension chronic History of coronary artery stent placement February 142006 resolved Dementia acute Epilepsy acute Polyneuropathy acute Transient ischemic attack re solved [facility] Work Phone: Evaluation note* Diagnosis Closed displaced fracture of medial condyle of right humerus, initial encounter- Primary Closed displaced fracture of medial condyle of right humerus, initial encounter [facility] Additional Instructions Your work-up today does not show signs of heart attack or heart damage. Your Coumadin level/INR is therapeutic at 2.7. Please follow-up with your family doctor for repeat evaluation or return to the ER if you have any further [facility] Work Phone: Hospital Discharge instructionsAmbulatory Orders* Physical Therapy Referral Location: None Selected [facility] Work Phone: Hospital Discharge instructions Additional Instructions Will need to follow-up Lamictal level since it is a send out. Recommend follow- up appointment with her neurologist [facility]. [facility] Work [facility]: Reason for referral (narrative)No reason for referral information availableWMercer County Community [facility] Work Phone: Summary Purpose Family History Relationship Condition Age at Onset Recorded Date/T maggy father Coronary artery disease Unknown brother Coronary artery disease Unknown Advance Directives Advance Directive Response Recorded Date/ Time Advance Directives Yes November 10:13am Living Will No February 11 12:11am Power of Evaluation Engineer No February 11, 2022 12:11am Advance Directive Response Recorded Date/ Time Advance Directives Yes November 11:13am Living Will No February 11 1:11am Power of Evaluation Engineer No February 11, 2022 1:11am Advance Directive Response Recorded Date/ Time Advance Directives Yes November 11:13am Living Will No September 08, 2022 3:33pm Power of Evaluation Engineer No September 08 3:33pm Advance Directive Response Recorded Date/ Time Advance Directives Yes November 11:13am Living Will No November 14 11:07am Power of Evaluation Engineer No November 14 023 11:07am Advance Directive Response Recorded Date/ Time Name of Medical Power of Evaluation Engineer Ty Charlee nguyen November 18, 2022 7:55am Advance Directives Yes November 11:13am Living Will Yes November 18 7:55am Power of Evaluation Engineer Yes November 18 023 7:55am Name of Medical Power of Evaluation Engineer Wilfredo [place] November 14, 2022 1:26pm Advance Directive Response Recorded Date/ Time Name of Medical Power of Evaluation Engineer Ty Campoverdei wendy November 18, 2022 7:55am Name of Medical Power of Evaluation Engineer Wilfredo Chiangastrodrigue November 14, 2022 1:26pm Advance Directives Yes November 11:13am Living Will No December 27, 2022 7:16pm Power of Evaluation Engineer No November 7:16pm Advance Directive Response Recorded Date/ Time Name of Medical Power of Evaluation Engineer Ty nguyen November 18, 2022 6:55am Name of Medical Power of Evaluation Engineer Wilfredo [place] November 14, 2022 12:26pm Advance Directives Yes November 10:13am Living Will No December 27, 2022 6:16pm Power of Evaluation Engineer No November 6:16pm Advance Directive Response Recorded Date/ Time Advance Directives Yes November 10:13am Living Will No December 27, 2022 6:16pm Power of Evaluation Engineer No November 6:16pm Advance Directive Response Recorded Date/ Time Name of Medical Power of Evaluation Engineer SON--JACK June 16, 2023 8:32am Advance Directives Yes November 11:13am Living Will Yes June 16, 2023 8:32am Power of Evaluation Engineer Yes June 15 8:32am Latest Code Status on File Code Status Date Activated Date Inactivated Comments Full Code 06/16/2023 4:39 PM 06/20/2023 7:46 PM Advance Directive Response Recorded Date/ Time Living Will Yes June 16, 2023 7:32am Power of Evaluation Engineer Yes June 15 7:32am Advance Directives Yes November 10:13am Advance Directive Response Recorded Date/ Time Living Will Yes June 16, 2023 8:32am Do you have a Healthcare Power of Evaluation Engineer? Yes June 16, 2023 8:32am Advance Directives Yes November 11:13am Advance Directive Response Recorded Date/ Time Living Will No December 27, 2022 7:16pm Do you have a Healthcare Power of Evaluation Engineer? No December 27, 2022 7:16pm Living Will Yes June 16, 2023 8:32am Do you have a Healthcare Power of Evaluation Engineer? Yes June 16, 2023 8:32am Advance Directives Yes November 11:13am Advance Directive Response Recorded Date/ Time Living Will No December 27, 2022 7:16pm Do you have a Healthcare Power of Evaluation Engineer? No December 27, 2022 7:16pm Do you have a Healthcare Power of Evaluation Engineer? Yes September 08, 2024 12:26pm Advance Directives Yes November 11:13am Advance Directive Response Recorded Date/ Time Living Will No December 27, 2022 7:16pm Do you have a Healthcare Power of Evaluation Engineer? No December 27, 2022 7:16pm Do you have a Healthcare Power of Evaluation Engineer? Yes September 10, 2024 5:17pm Do you have a Healthcare Power of Evaluation Engineer? 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 EORDER FOR LABS FROM DR JUAREZ Consult LEFT ICA STENOSIS 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 GAIT,POLYNEUROPATHY,LUMBAR COMPRESSION FX/RX HERE GAIT DISORDER Reason for Visit Abnormality of gait and mobility Carotid stenosis Dementia Polyneuropathy Transient ischemic attack Chronic diastolic (congestive) heart failure Essential (primary) hypertension Paroxysmal atrial fibrillation History of coronary artery stent placement Chief Complaint TIA SYMPTOMS, HX OF DM, AFIB confusion 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 EORDER FOR LABS FROM DR JUAREZ Consult LEFT ICA STENOSIS 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 GAIT,POLYNEUROPATHY,LUMBAR COMPRESSION FX/RX HERE GAIT DISORDER TIA Reason for Visit Abnormality of gait and mobility Carotid stenosis Dementia Polyneuropathy Transient ischemic attack Chronic diastolic (congestive) heart failure Essential (primary) hypertension Paroxysmal atrial fibrillation History of coronary artery stent placement Brain TIA Subtherapeutic international normalized ratio (INR) Paroxysmal atrial fibrillation Chief Complaint TIA SYMPTOMS, HX OF DM, AFIB confusion 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 EORDER FOR LABS FROM DR JUAREZ Consult LEFT ICA STENOSIS 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 GAIT,POLYNEUROPATHY,LUMBAR COMPRESSION FX/RX HERE GAIT DISORDER TIA TIA (cardiology) TIA (cardiology) tia Reason for Visit Abnormality of gait and mobility Carotid stenosis Dementia Polyneuropathy Transient ischemic attack Chronic diastolic (congestive) heart failure Essential (primary) hypertension Paroxysmal atrial fibrillation History of coronary artery stent placement Brain TIA Subtherapeutic international normalized ratio (INR) Paroxysmal atrial fibrillation Chief Complaint TIA SYMPTOMS, HX OF DM, AFIB confusion 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 EORDER FOR LABS FROM DR JUAREZ Consult LEFT ICA STENOSIS 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 GAIT,POLYNEUROPATHY,LUMBAR COMPRESSION FX/RX HERE GAIT DISORDER TIA TIA (cardiology) TIA (cardiology) tia [facility] WORK CONSULT-CAROTID STENOSIS Reason for Visit [...] LEFT ICA STENOSIS 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 GAIT,POLYNEUROPATHY,LUMBAR COMPRESSION FX/RX HERE GAIT DISORDER TIA TIA (cardiology) TIA (cardiology) tia [facility] WORK CONSULT-CAROTID STENOSIS LABWORK [facility] LABWORK Reason for Visit Abnormality of gait and mobility Carotid stenosis Dementia Polyneuropathy Transient ischemic attack Chronic diastolic (congestive) heart failure Essential (primary) hypertension History of coronary artery stent placement Brain TIA Carotid stenosis Chief Complaint TIA SYMPTOMS, HX OF DM, AFIB confusion 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 EORDER FOR LABS FROM DR JUAREZ Consult LEFT ICA STENOSIS 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 GAIT,POLYNEUROPATHY,LUMBAR COMPRESSION FX/RX HERE GAIT DISORDER TIA TIA (cardiology) TIA (cardiology) tia [facility] LAB WORK CONSULT-CAROTID STENOSIS LABWORK [facility] LABWORK DYARTHRIA DYARTHRIA Reason for Visit Abnormality of gait and mobility Carotid stenosis Dementia Polyneuropathy Transient ischemic attack Chronic diastolic (congestive) heart failure Essential (primary) hypertension History of coronary artery stent placement Brain TIA Carotid stenosis Difficulty with speech Dysarthria Chief Complaint LEFT ICA STENOSIS 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 GAIT,POLYNEUROPATHY,LUMBAR COMPRESSION FX/RX HERE GAIT DISORDER TIA TIA (cardiology) TIA (cardiology) tia [facility] WORK CONSULT-CAROTID STENOSIS LABWORK [facility] LABWORK DYARTHRIA DYARTHRIA DYARTHRIA [facility] LABWORK 4 month f/u EORDER Reason for Visit Chronic diastolic (c ongestive) heart failure Essential (primary) hypertension History of coronary artery stent placement Brain TIA Carotid stenosis Difficulty with speech Dysarthria Polyneuropathy Chief Complaint 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 GAIT,POLYNEUROPATHY,LUMBAR COMPRESSION FX/RX HERE GAIT DISORDER TIA TIA (cardiology) TIA (cardiology) tia [facility] WORK CONSULT-CAROTID STENOSIS LABWORK [facility] LABWORK DYARTHRIA DYARTHRIA DYARTHRIA [facility] LABWORK 4 month f/u EORDER Reason for Visit Chronic diastolic (c ongestive) heart failure Essential (primary) hypertension History of coronary artery stent placement Brain TIA Carotid stenosis Difficulty with speech Dysarthria Abnormality of gait and mobility Carotid stenosis Dementia Polyneuropathy Transient ischemic attack Chief Complaint TIA TIA (cardiology) TIA (cardiology) tia [facility] WORK CONSULT-CAROTID STENOSIS LABWORK [facility] LABWORK DYARTHRIA DYARTHRIA DYARTHRIA [facility] LABWORK 4 month f/u EORDER [facility] LABWORK Reason for Visit Brain TIA Carotid stenosis Difficulty with speech Dysarthria Abnormality of gait and mobility Carotid stenosis Dementia Polyneuropathy Transient ischemic attack Chief Complaint [facility] LABWORK 4 month f/u EORDER [facility]CC LABWORK MCC LAB WORK [facility]CC LABWORK Reason for Visit Dementia Epilepsy Polyneuropathy Transient ischemic attack Chief Complaint 4 month f/u EORDER [facility] LABWORK MCC LAB WORK MCC LAB WORK [facility] LABWORK 7 m fu 4 month f/u Reason for Visit Dementia Epilepsy Polyneuropathy Transient ischemic attack Longstanding persistent atrial fibrillation Essential (primary) hypertension History of coronary artery stent placement Dementia Epilepsy Polyneuropathy Transient ischemic attack Chief Complaint [facility] LABWORK MCC LAB WORK MCC LAB WORK [facility]CC LABWORK LABWORK 7 m fu 4 month f/u LABWORK Reason for Visit Longstanding persist ent atrial fibrillation Essential (primary) hypertension History of coronary artery stent placement Dementia Epilepsy Polyneuropathy Transient ischemic attack Chief Complaint [facility] LABWORK MCC LAB WORK MCC LAB WORK MCC LABWORK LABWORK 7 m fu 4 month f/u LABWORK [place] Reason for Visit Longstanding persist ent atrial fibrillation Essential (primary) hypertension History of coronary artery stent placement Dementia Epilepsy Polyneuropathy Transient ischemic attack Chief Complaint [facility] LAB WOR K [facility] LAB WORK [facility]CC LABWORK LABWORK 7 m fu 4 month f/u LABWORK [place] LABWORK Reason for Visit Longstanding persist ent atrial fibrillation Essential (primary) hypertension History of coronary artery stent placement Dementia Epilepsy Polyneuropathy Transient ischemic attack Chief Complaint Admit Date [facility] LAB WORK February 05, 2024 5:00am [facility] LAB WORK March 04, 2024 5:00am [facility] LAB WORK March 08, 2024 5:00am [facility] LAB WORK March 10 4:00am LABWORK March 17, 2024 5:00am LABWORK March 19, 2024 5:00am LABWORK March 25, 2024 5:00am [facility] LAB WORK March 26 5:00am [facility] LAB WORK March 29 5:00am [facility] LAB WORK April 05, 2024 5:00am [facility] LAB WORK April 06, 2024 5:00am LABWORK April 09, 2024 5 :00am [facility] LAB WORK April 14, 2024 4:00am [facility] LAB WORK April 28, 2024 5:00am LABWORK May 05, 2024 5 :00am 8 mo fu May 10, 2024 2:34pm [facility] LAB WORK May 19 5:00am Reason for Visit Admit Date Dementia May 10, 2024 2:34pm Epilepsy May 10, 2024 2:34pm Transient ischemic attack May 10, 2024 2:34pm Chief Complaint Admit Date [facility] LAB WORK March 04, 2024 5:00am [facility] LAB WORK March 08, 2024 5:00am [facility] LAB WORK March 10 4:00am LABWORK March 17, 2024 5:00am LABWORK March 19, 2024 5:00am LABWORK March 25, 2024 5:00am MCC LAB WORK March 26 5:00am [facility] LAB WORK March 29 5:00am [facility] LAB WORK April 05, 2024 5:00am [facility] LAB WORK April 06, 2024 5:00am LABWORK April 09, 2024 5 :00am MCC LAB WORK April 14, 2024 4:00am [facility]CC LAB WORK April 28, 2024 5:00am LABWORK May 05, 2024 5 :00am 8 mo fu May 10, 2024 2:34pm [facility] LAB WORK May 12 5:00am [facility] LAB WORK May 19 5:00am [facility] LAB WORK June 09, 2024 5 :00am Chief Complaint Admit Date [facility] LAB WORK March 10 4:00am LABWORK March 17, 2024 5:00am LABWORK March 19, 2024 5:00am LABWORK March 25, 2024 5:00am [facility] LAB WORK March 26 5:00am [facility] LAB WORK March 29 5:00am [facility] LAB WORK April 05, 2024 5:00am [facility] LAB WORK April 06, 2024 5:00am LABWORK April 09, 2024 5 :00am [facility] LAB WORK April 14, 2024 4:00am [facility] LAB WORK April 28, 2024 5:00am LABWORK May 05, 2024 5 :00am 8 mo fu May 10, 2024 2:34pm [facility] LAB WORK May 12 5:00am [facility] LAB WORK May 19 5:00am [facility] LAB WORK June 09, 2024 5 :00am [facility]CC LAB WORK June 16, 2024 5 :00am [...] Admit Date LABWORK March 25, 2024 5:00am [facility] LAB WORK March 26 5:00am [facility] LAB WORK March 29 5:00am [facility] LAB WORK April 05, 2024 5:00am [facility] LAB WORK April 06, 2024 5:00am LABWORK April 09, 2024 5 :00am [facility] LAB WORK April 14, 2024 4:00am [facility] LAB WORK April 28, 2024 5:00am LABWORK May 05, 2024 5 :00am 8 mo fu May 10, 2024 2:34pm [facility] LAB WORK May 12 5:00am [facility] LAB WORK May 19 5:00am [facility] LAB WORK June 09, 2024 5 :00am [facility] LAB WORK June 16, 2024 5 :00am 1 Y FU July 01, 2024 10:3 5am [facility] LAB WORK July 19, 2024 4 :00am Chief Complaint Admit Date [facility] LAB WORK May 12 5:00am [facility] LAB WORK May 19 5:00am [facility] LAB WORK June 09, 2024 5 :00am [facility] LAB WORK June 16, 2024 5 :00am 1 Y FU July 01, 2024 10:3 5am [facility] LAB WORK July 19, 2024 4 :00am [facility] LAB WORK August 18, 2024 5:0 0am SEIZURE September 08, 2024 12:2 0pm Reason for Visit Admit Date Longstanding persistent atrial fibrillat ion July 01, 2024 10:35am Essential (primary) hypertension July 012024 10:35am History of coronary artery stent placeme nt July 01, 2024 10:35am Chief Complaint Admit Date [facility] LAB WORK May 19 5:00am [facility] LAB WORK June 09, 2024 5 :00am [facility] LAB WORK June 16, 2024 5 :00am 1 Y FU July 01, 2024 10:3 5am [facility] LAB WORK July 19, 2024 4 :00am [facility] LAB WORK August 18, 2024 5:0 0am SEIZURE September 08, 2024 12:2 0pm Chief Complaint Admit Date [facility] LAB WORK May 19 5:00am [facility] LAB WORK June 09, 2024 5 :00am [facility] LAB WORK June 16, 2024 5 :00am 1 Y FU July 01, 2024 10:3 5am [facility] LAB WORK July 19, 2024 4 :00am [facility] LAB WORK August 18, 2024 5:0 0am SEIZURE September 08, 2024 12:2 0pm STROKE VS SEIZURE September 10, 2024 4:03 pm Chief Complaint Admit Date [facility] LAB WORK May 19 5:00am [facility] LAB WORK June 09, 2024 5 :00am [facility] LAB WORK June 16, 2024 5 :00am 1 Y FU July 01, 2024 10:3 5am [facility] LAB WORK July 19, 2024 4 :00am [facility] LAB WORK August 18, 2024 5:0 0am [...] 2024 4 :03pm Chief Complaint Admit Date [facility] LAB WORK May 19 5:00am [facility] LAB WORK June 09, 2024 5 :00am [facility] LAB WORK June 16, 2024 5 :00am 1 Y FU July 01, 2024 10:3 5am [facility] LAB WORK July 19, 2024 4 :00am [facility] LAB WORK August 18, 2024 5:0 0am SEIZURE September 08, 2024 12:2 0pm STROKE VS SEIZURE September 10, 2024 4:03 pm STROKE VS SEIZURE September 11, 2024 12:1 4pm 2 SEIZURES/ IN [facility] September 13, 2024 2:04 pm EORDERS [...] section and content) DATE CREATED AUTHOR 02/04/2018 [facility] DATE CREATED AUTHOR AUTHOR'S ORGANIZ ATION 11/12/2019 [facility] DATE CREATED AUTHOR AUTHOR'S ORGANIZ ATION 06/26/2023 [facility] DATE CREATED AUTHOR AUTHOR'S ORGANIZ ATION 09/13/2024 [facility] Source Comments (unrecognize d section and content) In the event this informatio n is protected by the Federal Confidentiality of Alcohol and Drug Abuse Patient Records regulations: The Federal rules restrict any use of the information to criminally investigate or prosecute any alcohol or drug abuse patient.TrihealthIn the event this information is protected by the Federal Confidentiality of Alcohol and Drug Abuse Patient Records regulations: The Federal rules restrict any use of the information to criminally investigate or prosecute any alcohol or drug abuse patient.TrihealthIn the event this information is protected by the Federal Confidentiality of Alcohol and Drug Abuse Patient Records regulations: The Federal rules restrict any use of the information to criminally investigate or prosecute any alcohol or drug abuse patient.TrihealthIn the event this information is protected by the Federal Confidentiality of Alcohol and Drug Abuse Patient Records regulations: The Federal rules restrict any use of the information to criminally investigate or prosecute any alcohol or drug abuse patient.TrihealthIn the event this information is protected by the Federal Confidentiality of Alcohol and Drug Abuse Patient Records regulations: The Federal rules restrict any use of the information to criminally investigate or prosecute any alcohol or drug abuse patient.[facility] Reason for Visit (unrecogniz ed section and content) Reason Onset Date Comments Refill Request Refill Request 11/11/2019 Reason Comments Arm Injury Pt arrives [facility] with complaints of right elbow fracture. Patient was sent here for ortho consult. No pain on arrival. Arrives with right arm splinted. Specialty Diagnoses / Procedures Referred By Contac t Referred To Contact Diagnoses Closed displaced fracture of medial condyle of right humerus, initial encounter Procedures .. Jayshree Cortez MD [address] [place] [address] [facility] Emergency Dept [address] [place] [id number] Referral ID Status Reason Start Date Expiration Date Visits Re quested Visits Authorized [id number] 1 1 Telephone Encounter - Anne Marie [...] Visit date not found Patient Phone numbers: [phone] (home) Request is for script(s) to be [...] MD Primary Care Provider Active Suze Prebish YARN DRY ROOM WORKER, YARN DRY ROOM WORKER-C Attending Provider, Referring Pr ovider Active Team [...] Rosemary Doran MD Primary Care Provider Active Mail Caller Relationship Specialty Start Date End Date Alexandra Hagen [address] [place] [address] PCP - General Family Medicine 06/20/23 Team [...] 5 [address] 6 [address] 151 ([facility] Hold - Provider: Automatic Transfer Provider - Reason: Patient not available)2025 ([facility] Unhold - Provider: Automatic Transfer Provider)2131 (Given - Provider: Kirsty Vicente RN - Comment: bs 189) 2146 (Given - Provider: Kirsty Vicente RN) lamoTRIgine (LaMICtal) tablet 50 mg 50 mg, Oral, 2 times daily, First dose on Fri06/17/23 at 2145 0841 (Given - Provider: Odessa Wayne RN)1511 ([facility] Hold - Provider: Automatic Transfer Provider - Reason: Patient not available)2025 ([facility] Unhold - Provider: Automatic Transfer Provider)2126 (Given - Provider: Kirsty Vicente RN) 0837 (Given - Provider: Leona Sidhu RN)2147 (Given - Provider: Kirsty Vicente RN) 09 (Given - Provider: Juanjo Villalba, JAYME) metoprolol tartrate (Lopressor) tablet 25 mg 25 mg, Oral, 2 times daily, First dose on Fri06/17/23 at 2145 0840 (Given - Provider: Odessa Wayne RN)1511 ([facility] Hold - Provider: Automatic Transfer Provider - Reason: Patient not available)2025 ([facility] Unhold - Provider: Automatic Transfer Provider)2126 (Given [...] Provider: Yvan Sepulveda RN - Reason: NPO)1511 ([facility] Hold - Provider: Automatic Transfer Provider - Reason: Patient not available)2025 ([facility] Unhold - Provider: Automatic Transfer Provider) 0540 [...] Glucostabilizer, dose as instructed per system. 1511 ([facility] Hold - Provider: Automatic Transfer Provider - Reason: Patient not available)2025 ([facility] Unhold - Provider: Automatic Transfer Provider) glucagon [...] 15 minutes x2 and notify provider. 1511 ([facility] Hold - Provider: Automatic Transfer Provider - Reason: Patient not available)2025 ([facility] Unhold - Provider: Automatic Transfer Provider) glucose [...] 15 minutes x2 and notify provider. 1511 ([facility] Hold - Provider: Automatic Transfer Provider - Reason: Patient not available)2025 ([facility] Unhold - Provider: Automatic Transfer Provider) HYDROmorphone [...] of each other unless specifically ordered. 1511 ([facility] Hold - Provider: Automatic Transfer Provider - Reason: Patient not available)2025 ([facility] Unhold - Provider: Automatic Transfer Provider) naloxone (Narcan) injection 0.4 mg 0.4 mg, IntraVENous, Every 5 min PRN, opioid reversal, respiratory depression, Starting on Fri06/16/23 at 1647, +++ For RR <10, pinpoint pupils, over sedation for opioid reversal - MUST notify project consultant provider immediately after first dose, may give IM or SQ if no IV access +++ 1511 ([facility] Hold - Provider: Automatic Transfer Provider - Reason: Patient not available)2025 ([facility] Unhold - Provider: Automatic Transfer Provider) ondansetron (Zofran) injection 4 mg(Linked Group 3) 4 mg, IntraVENous, Every 6 hours PRN, nausea, vomiting, Starting on Fri06/16/23 at 1639, 1st Line. Give IV if patient is unable to take orally. If inadequate response within 60 minutes, proceed to next-line agent or contact provider if no further options ordered. 1511 ([facility] Hold - Provider: Automatic Transfer Provider - Reason: Patient not available)2025 ([facility] Unhold - Provider: Automatic Transfer Provider) ondansetron [...] blister pack until just before administering. 151 ([facility] Hold - Provider: Automatic Transfer Provider - Reason: Patient not available)2025 ([facility] Unhold - Provider: Automatic Transfer Provider) oxyCODONE (Roxicodone) immediate release tablet 2.5 mg(Linked Group 4) 2.5 mg, Oral, Every 4 hours PRN, moderate pain (4-6), Starting on Fri06/16/23 at 1639 151 ([facility] Hold - Provider: Automatic Transfer Provider - Reason: Patient not available)2025 ([facility] Unhold - Provider: Automatic Transfer Provider) 0924 [...] BE BASED ON THE PRIMARY CLINICAL RECORDS. [facility]. provides no warranty or guarantee of the accuracy or completeness of information in this document.
[2024-09-17 07:56] LABS: INR Fingerstick 1.5; Prothrombin Time Fingerstick 17.2 SEC (11.7-14.9)
== END ==
PROVIDERS: Visit Provider Internal Medicine Cardiovascular Disease
DX: Z79.01 Long term (current) use 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 (principal)
CPT/HCPCS: 36416; 85610

== ENCOUNTER → 2024-09-22 | Outpatient (REF) | payer MEDICARE, SELFPAY ==
--- OUTSIDE RECORDS SUMMARY | 2024-09-22 03:47 | XMS RPT_ITS | CCD ---
Author Organization [facility] Care Team Providers Care Research Aide Name Role Phone LISHNEVSKI, ALEXIA Unavailable Unavailable [...] Unavailable Nirmal Kemp Unavailable Mohan Álvarez Unavailable Bishop, Rickey Clive Unavailable Rosemary Doran Primary Care Provider Lishnevski, Alexia Primary Care Provider [phone] Rosemary Doran Primary Care Provider Dr. Rosemary Doran Referring Provider Roof VISUAL LEAD, VISUAL LEAD-Adeel Arnett Attending Provider Dr. Rosemary Doran Primary Care Provider [phone] Dr. Rosemary Doran Referring Provider Dr. Cesar Cole Attending Provider [phone] Rosemary Doran Primary Care Provider [phone] Dr. Rosemary Doran Referring Provider Dr. nAant Juarez Attending Provider Dr. Mo Saldana Attending [...] Dr. Rosemary Doran Primary Care Provider [phone] Rosemary Doran Referring Provider Dr. Anant Juarez Attending Provider [phone] Rosemary Doran Primary Care Provider [phone] Rosemary Doran Primary Care Provider [phone] Neri Mitchell Emergency Provider Dr. Sae Carballo Admit Provider Dr. Sae Carballo Attending Provider Dr. Sae Carballo Other Provider Dr. Betina Carver Attending Provider Dr. Rosemary Doran Referring Provider NADIA Hoff Attending Provider Dr. Lali Pimentel Emergency Provider Dr. Lynn Horn Admit Provider Dr. Lynn Honr Attending Provider Dr. Lynn Horn Other Provider Dr. Anant Juarez Attending Provider Dr. Rosemary Doran Primary Care Provider [phone] Rosemary Doran Referring Provider Mason ZUNIGA PA Rachell Palacios Attending Provider Dr. Alexandra Hagen Primary Care Provider Dr. Rosemary Doran Referring Provider Dr. Anant Juarez Attending Provider Dr. Rosemary Doran Referring Provider Mason ZUNIGA, PA Rachell Palacios Attending Provider Dr. Alexandra Hagen Primary Care [...] Provider Unavailab kamari Hagen MD, Dr. Alexandra Johansen Primary Care Provider Dr. Chucky Ochoa MD Attending Provider Unavail able Dr. Chucky Ochoa MD Referring Provider Unavail able Cesar Cole MD Attending Provider Unavailable Dr. Rosemary Doran MD Referring Provider Jerrica LENNON, Dr. Ny Attending Provider Anant Juarez MD Attending Provider Unavailab kamari Hagen MD, Dr. Alexandra Johansen Primary Care Provider Dr. Chucky Ochoa MD Attending Provider Unavail able Dr. Alexandra Hagen MD Referring Provider Douglas LENNON, Dr. Guerrero Attending Provider Dr. Alexandra Hagen MD Primary Care Provider Dr. Chucky Ochoa MD Attending Provider Unavail able Dr. Chucky Ocoha MD Referring Provider Unavail able Cesar Cole MD Referring Provider Unavailable Dr. Alexandra Hagen MD Primary Care Provider Cesar Cole MD Attending Provider Unavailable Dr. Chucky Ochoa MD Attending Provider Unavail able Dr. Anoop Blackmon MD Referring Provider Dr. Anoop Blackmon MD Emergency Provider Dr. Chucky Ochoa MD Primary Care Provider Unav ailable Dr. Alexandra Hagen MD Primary Care Provider Dr. Chucky Ochoa DO Primary Care Provider Dr. Teri Garcia DO Emergency Provider Dr. Matthew Oro DO Admit Provider Dr. Matthew Oro DO Attending Provider Amos LENNON, Dr. Baker Other Provider [phone] Dr. Janett French MD Other Provider [phone] Pauline LENNON, Julia Other Provider Sosa MS, Keyshawn Other Provider Jadon LENNON, Dr. Izaguirre Other Provider Delvis LENNON, Meagan Other Provider [phone] JULITA LENNON, MAMADOU Other Provider Lester LENNON, Cara Other Provider Flynn LENNON, Dr. Moseley Other Provider Mukesh LENNON, Robinson Other Provider [phone] Olman LENNON, Aura Other Provider Mervat LENNON, Eric Other Provider Unavailable Camila Mitchell MD Other Provider Unavailable Dr. Glenna Jacobson DO Other Provider Joi LENNON, Dr. Phelps Other Provider Alexandra LENNON, Dr. Bull Other Provider Johana LENNON, Dr. Grossman Other Provider [phone] Shaheed LENNON, Dr. Kinney Other Provider Marilu LENNON, Dr. Montana Other Provider Ely LENNON, Dr. Parkinson Other Provider Dr. Liz Merrill MD Other Provider Chris LENNON, Dr. Mckenna Other Provider Karen LENNON, Dr. Chong Other Provider Mariaa LENNON, Dr. Sanchez Other Provider Kory LENNON, Dr. White Other Provider Unavailable Horacio LENNON, Youaram Other Provider Unavailable Dr. Matthew Oro DO Other Provider [phone] Neymar LENNON, Dr. Davalos Attending Provider Dr. Chucky Ochoa DO Referring Provider Jerrica LENNON, Dr. Ny Attending Provider Jerrica LENNON, Dr. Ny Referring Provider Chucky Whalen Primary Care Unavailable Anoop Blackmon Referring Unavailable Anoop Blackmon Attending Unavailable Anant Juarez Attending Unavailable Anant Juarez Referring Unavailable Jolliff, Alexandra S Primary Care Unavailable Jolliff, Alexandra S Primary Care Unavailable Chucky Whalen Attending Unavailable Jolliff, Alexandra S Primary Care Unavailable Chucky Whalen Attending Unavailable Chucky Whalen Attending Unavailable Jolliff, Alexandra S Primary Care Unavailable Jolliff, Alexandra S Primary Care Unavailable Chucky Whalen Attending Unavailable Ochoa, Chucky Primary Care Unavailable Amos, Olivia Consulting Unavailable Matthew Oro Admitting Unavailable Matthew Oro Attending Unavailable Gillian, Janett Consulting Unavailable Julia Carpenter Consulting Unavailable Keyshawn Swan Consulting Unavailable Dmitriy Diop Consulting Unavailable Meagan Edmondson Consulting Unavailable MAMADOU HICKS Consulting Unavailable Cara Batista Consulting Unavailable Lorelei Pruett Consulting Unavailable Robinson Mayorga Consulting Unavailable Aura Thurman Consulting Unavailable Eric Crowell Consulting Unavailable Camila Mitchell Consulting Unavailable Glenna Jacobson Consulting Unavailable Lenin Tamez Consulting Unavailable Ml Morris Consulting Unavailable Chauncey Vaughn Consulting Unavailable Nirmal Hummel Consulting Unavailable Rubén Michel Consulting Unavailable Iggy Graves Consulting Unavailable Desirae, Mhd Kevyn Consulting UnavailBala Iqbal Consulting Unavailable Jones, Ramdonna Consulting Unavailable Daniel Leroy Consulting Unavailable Cindy Horn Consulting Unavailable Ashu Leonard Consulting Unavailable Jolliff, Alexandra S Primary Care Unavailable Chucky Whalen Attending Unavailable Jolliff, Alexandra S Primary Care Unavailable Chucky Whalen Attending Unavailable Cesar Murrieta Attending Unavailable Jolliff, Alexandra S Primary Care Unavailable Jolliff, Alexandra S Primary Care Unavailable Chucky Whalen Attending Unavailable Jolliff, Alexandra S Primary Care Unavailable Ochoa OLS, Chucky Attending Unavailable Jolliff, Alexandra S Primary Care Unavailable Ochoa OLS, Chucky Attending Unavailable Ochoa OLS, Chucky Attending Unavailable Jolliff, Alexandra S Primary Care Unavailable Ochoa OLS, Chucky Attending Unavailable Jolliff, Alexandra S Primary Care Unavailable Jolliff, Alexandra S Primary Care Unavailable Ochoa OLS, Chucky Attending Unavailable Ochoa OLS, Chucky Attending Unavailable Jolliff, Alexandra S Primary Care Unavailable Jolliff, Alexandra S Primary Care Unavailable Anant Mckay Attending Unavailable Ochoa, Chucky Primary Care Unavailable Anant Juarez Attending Unavailable Jerrica, Anant Referring Unavailable Ochoa OLS, Chucky Attending Unavailable Jolliff, Alexandra S Primary Care Unavailable Jolliff, Alexandra S Primary Care Unavailable Ochoa OLS, Chucky Attending Unavailable Jolliff, Alexandra S Primary Care Unavailable Ochoa OLS, Chucky Referring Unavailable Ochoa OLS, Chucky Attending Unavailable Ochoa OLS, Chucky Attending Unavailable Jolliff, Alexandra S Primary Care Unavailable BadAnant zhou Attending Unavailable Jolliff, Alexandra S Referring Unavailable Rosemary Doran Primary Care Unavailable Jolliff, Alexandra S Primary Care Unavailable Ochoa OLS, Chucky Attending Unavailable Ochoa, Chucky Primary Care Unavailable Ademarion, Olivia Consulting Unavailable Matthew Oro Admitting Unavailable Matthew Oro Attending Unavailable Gillian, Janett Consulting Unavailable Julia Carpenter Consulting Unavailable Keyshawn Swan Consulting Unavailable Dmitriy Diop Consulting Unavailable Meagan Edmondson Consulting Unavailable MAMADOU HICKS Consulting Unavailable Cara Batista Consulting Unavailable Lorelei Pruett Consulting Unavailable Robinson Mayorga Consulting Unavailable Aura Thurman Consulting Unavailable Eric Crowell Consulting Unavailable Camila Mitchell Consulting Unavailable Kavon Glenna Consulting Unavailable Lenin Tamez Consulting Unavailable Ml Morris Consulting Unavailable Chauncey Vaughn Consulting Unavailable Nirmal Hummel Consulting Unavailable Rubén Michel Consulting Unavailable Iggy Graves Consulting Unavailable Liz Merrill Consulting UnavailBala Iqbal Consulting Unavailable Castillo Jones Consulting Unavailable Daniel Leroy Consulting Unavailable Cindy Horn Consulting Unavailable Ashu Leonard Consulting Unavailable Matthew Oro Consulting Unavailable Jolliff, Alexandra S Primary Care Unavailable Jolliff, Alexandra S Referring Unavailable Cesar Cole Attending Unavailable Ochoa, Chucky Primary Care Unavailable Anant Juarez Attending Unavailable Chucky Ochoa Referring Unavailable Anant Juarez Attending Unavailable Rosemary Doran Referring Unavailable Jolliff, Alexandra S Primary Care Unavailable Jolliff, Alexandra S Primary Care Unavailable Ochoa OLS, Chucky Attending Unavailable Jolliff, Alexandra S Primary Care Unavailable Ochoa OLS, Chucky Attending Unavailable Ochoa OLS, Chucky Referring Unavailable Jolliff, Alexandra S Primary Care Unavailable Ochoa JUAN, Chucky Attending Unavailable Douglas OLS, Newcomb Attending Unavailable Jolliff, Alexandra S Primary Care Unavailable Ochoa OLS, Chucky Attending Unavailable Jolliff, Alexandra S Primary Care Unavailable Ochoa, Chucky Primary Care Unavailable Douglas OLS, Cesar Attending Unavailable Ochoa OLS, Chucky Attending Unavailable Jolliff, Alexandra S Primary Care Unavailable Jolliff, Alexandra S Primary Care Unavailable Ochoa OLS, Chucky Attending Unavailable Ochoa OLS, Chucky Attending Unavailable Jolliff, Alexandra S Primary Care Unavailable Jolliff, Alexandra S Primary Care Unavailable Ochoa OLS, Chucky Attending Unavailable Ochoa JUAN, Chucky Referring Unavailable Douglas OLS, Cesar Referring Unavailable Douglas OLS, Cesar Attending Unavailable Jolliff, Alexandra S Primary Care Unavailable Jolliff, Alexandra S Primary Care Unavailable Douglas OLS, Newcomb Attending Unavailable Jolliff, Alexandra S Primary Care Unavailable Ochoa OLS, Chucky Attending Unavailable Ochoa JUAN, Chucky Referring Unavailable Jolliff, Alexandra S Primary Care Unavailable Ochoa OLS, Chucky Attending Unavailable Allergies Allergy Classification Reported Allergen(s) Allergy Type Date of Onset Reaction(s) Facility (20 sources) atorvastatin; 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: [ATORVASTATIN] Drug Allergy 5 Other: See Comments [facility] Repository (20 sources) codeine; 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: [CODEINE] Drug Allergy 5 Unknown [facility] (20 sources) Latex; 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: [LATEX] Propensity to adverse reactions (disorder) 5 Rash, Itching [facility] (20 sources) meperidine; 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: [MEPERIDINE] Drug Allergy 5 GI Upset [facility] (20 sources) rosuvastatin; 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: [ROSUVASTATIN] Drug Allergy 5 Other: See Comments [facility] (20 sources) Amiodarone Drug Allergy 2 Hair falling out in gobs, hair loss [facility] (1 source) Amiodarone Drug Allergy [facility] Repository Medications Current Medications Medication [...] 500 mg PO TWICE A DAY 60 September 13, 2024 2:54pm Start: 01-20-2023 End: [...] release tablet 2.5 mg polyethylene glycol 3350 09821 mg powder for oral solution (4 sources) [...] 1 TABLET PO EVERY 6 HOURS NEEDED 12 August 11, 2020 January 31, 2021 8:41am acetaminophen [...] sources) Long-term current use of anticoagulant; 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] Onset: 11-27-2018 11-27-2018 Episodic Other aftercare (2 sources) 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; 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: [[facility] (current) use 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] Onset: 04-15-2024 Episodic [...] disturbances] 12-27-2022 Episodic Other nervous system disorders (5 sources) Unspecified speech disturbances; 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: [Other speech disturbance] Onset: 09-15-2024 12-28-2022 Episodic Other nervous system disorders (4 sources) Dysarthria and anarthria; 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: [Dysarthria] 12-28-2022 Episodic Other nervous system disorders (1 source) Slurred speech; 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: [Slurred speech] Onset: 09-15-2024 Episodic Other non-traumatic joint disorders (5 sources) [...] 11-24-2015 Episodic Other aftercare (1 source) Other assisted (current) drug therapy; 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: [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, [address] Lamotrigine (Lamictal) Level on 09-16-2024 LAMOTRIGINE 1.7 ug/mL Low 2.0-20.0 [facility] Comment on above: Result Comment: Dete ction Limit = 1.0 Performed at: [facility] [address] [id number] Clinical Laboratory Manager: Brandon [place] MD, Phone: [phone] Performed By: #### L 503.5510, L3310.0000, L3300.4400 ####[facility] [address] [place], [place], [address] Ammoniaon 09-13-2024 Ammonia (P) [Moles/Vol] 28.9 umol/L Normal [facility] Comment on above: Performed By: #### L 503.5510, L3310.0000, L3300.4400 ####[facility] [address] [place], [place], [address] Venous blood ammonia measure mentOrdered By: Anant Juarez on 09-13-2024 Ammonia (P) [Moles/Vol] 28.9 umol/L [address] [place] [address] Lamotrigine (Lamictal) Level on 09-12-2024 LAMOTRIGINE 1.2 ug/mL Low 2.0-20.0 [facility] Comment on above: Result Comment: Dete ction Limit = 1.0 Performed at: [facility] [address] [id number] Clinical Laboratory Manager: Brandon [place] MD, Phone: [phone] Performed By: #### L 100.0100, L500.2500, L300.3900, L3300.4400 ####[facility] [address] [place], [address] Urine Cultureon 09-12-2024 URC Klebsiella pneumonia e sp pneum [place] Count 80,000-100,000 Klebsiella pneumoniae sp pneum: REACTION [...] TMP SMX Islt MELINDA <=20 S Normal [facility] Comment on above: Performed By: #### M 100.2200 ####[facility] [address] [place], [place], [id number] Anion gap in Serum or Plasma Ordered By: Matthew Oro on 09-11-2024 Anion gap [Moles/Vol] 12 mmol/L - [facility] BUN/creatinine ratioOrdered By: Matthew Oro on 09-11-2024 Urea nitrogen/Creatinine [Mass ratio] 30.4 mg/mg High [facility] Basic Metabolic Profile (BMP )on 09-11-2024 BUN/CRE 30.4 RATIO High [address] [place] [address] Comment on above: Order Comment: Comme nts: NPO at [place] prior to lipid panel Performed By: #### L 500.4100, L100.0500, L500.2500 #### [facility] [address] [place], [address] Calcium [Mass/Vol] 8.8 mg/dL Normal 7.6-11.0 [facility] Comment on above: Order Comment: Comme nts: NPO at [place] prior to lipid panel Performed By: #### L 500.4100, L100.0500, L500.2500 #### [facility] [address] [place], [address] Chloride [Moles/Vol] 105 mmol/L Normal 98-108 [facility] Comment on above: Order Comment: Comme nts: NPO at [place] prior to lipid panel Performed By: #### L 500.4100, L100.0500, L500.2500 #### [facility] [address] [place], [address] CO2 [Moles/Vol] 21.6 mmol/L Normal 21.0-32.0 [facility] Comment on above: Order Comment: Comme nts: NPO at [place] prior to lipid panel Performed By: #### L 500.4100, L100.0500, L500.2500 #### [facility] [address] [place], [address] Creatinine [Mass/Vol] 0.91 mg/dL Normal 0.70-1.20 [facility] Comment on above: Order Comment: Comme nts: NPO at [place] prior to lipid panel Performed By: #### L 500.4100, L100.0500, L500.2500 #### [facility] [address] [place], [address] ECRCL 41.34 ml/min Low 50-250 [facility] Comment on above: Order Comment: Comme nts: NPO at [place] prior to lipid panel Performed By: #### L 500.4100, L100.0500, L500.2500 #### [facility] [address] [place], [address] GAP 12 Normal 5-15 [facility] Comment on above: Order Comment: Comme nts: NPO at [place] prior to lipid panel Performed By: #### L 500.4100, L100.0500, L500.2500 #### [facility] [address] [place], [address] GFR/1.73 sq M.predicted among non-blacks MDRD (S/P/Bld) [Vol rate/Area] 61 mL/min/{1.73_m2} Normal >60 [facility] Comment on above: Order Comment: Comme nts: NPO at [place] prior to lipid panel Result Comment: mL/m in/1.73m2 CKD-EPI Creatinine Equation (2020) Performed By: #### L 500.4100, L100.0500, L500.2500 #### [facility] [address] [place], [address] Glucose [Mass/Vol] 118 mg/dL High 70-99 [facility] Comment on above: Order Comment: Comme nts: NPO at [place] prior to lipid panel Performed By: #### L 500.4100, L100.0500, L500.2500 #### [facility] [address] [place], [address] Potassium [Moles/Vol] 4.4 mmol/L Normal 3.3-5.1 [facility] Comment on above: Order Comment: Comme nts: NPO at [place] prior to lipid panel Performed By: #### L 500.4100, L100.0500, L500.2500 #### [facility] [address] [place], [address] Sodium [Moles/Vol] 139 mmol/L Normal 133-145 [facility] Comment on above: Order Comment: Comme nts: NPO at [place] prior to lipid panel Performed By: #### L 500.4100, L100.0500, L500.2500 #### [facility] [address] [place], [address] Urea nitrogen [Mass/Vol] 28 mg/dL High 4-19 [facility] Comment on above: Order Comment: Comme nts: NPO at [place] prior to lipid panel Performed By: #### L 500.4100, L100.0500, L500.2500 #### [facility] [address] [place], [address] CBC-Complete Blood Cnt No Di ffon 09-11-2024 Erythrocyte distribution width (RBC) [Ratio] 12.8 % Normal 11.6-14.6 [facility] Comment on above: Performed By: #### L 500.4100, L100.0500, L500.2500 #### [facility] [address] [place], [address] Hematocrit (Bld) [Volume fraction] 39.7 % Normal 37-47 [facility] Comment on above: Performed By: #### L 500.4100, L100.0500, L500.2500 #### [facility] [address] [place], [address] Hemoglobin (Bld) [Mass/Vol] 13.1 g/dL Normal 12.0-15.0 [facility] Comment on above: Performed By: #### L 500.4100, L100.0500, L500.2500 #### [facility] [address] [place], [address] MCH (RBC) [Entitic mass] 30.3 pg Normal 27.0-32.0 [facility] Comment on above: Performed By: #### L 500.4100, L100.0500, L500.2500 #### [facility] [address] [place], [address] MCHC (RBC) [Mass/Vol] 33.0 g/dL Normal 32-36 [facility] Comment on above: Performed By: #### L 500.4100, L100.0500, L500.2500 #### [facility] [address] [place], [address] MCV (RBC) [Entitic vol] 91.7 fL Normal 81-99 [facility] Comment on above: Performed By: #### L 500.4100, L100.0500, L500.2500 #### [facility] [address] [place], [address] Platelet mean volume (Bld) [Entitic vol] 10.7 fL Normal 6.2-12.0 [facility] Comment on above: Performed By: #### L 500.4100, L100.0500, L500.2500 #### [facility] [address] [place], [address] Platelets (Bld) [#/Vol] 271 10*3/uL Normal 150-450 [facility] Comment on above: Performed By: #### L 500.4100, L100.0500, L500.2500 #### [facility] [address] [place], [address] RBC (Bld) [#/Vol] 4.33 10*6/uL Normal 4.2-5.4 [facility] Comment on above: Performed By: #### L 500.4100, L100.0500, L500.2500 #### [facility] [address] [place], [address] RDW SD 42.8 fl Normal 35.1-43.9 [facility] Comment on above: Performed By: #### L 500.4100, L100.0500, L500.2500 #### [facility] [address] [place], [address] WBC (Bld) [#/Vol] 12.2 10*3/uL High 4.4-11.0 [facility] Comment on above: Performed By: #### L 500.4100, L100.0500, L500.2500 #### [facility] [address] [place], [address] Calculated very low density lipoprotein (VLDL) cholesterol measurementOrdered By: Matthew Oro on 09-11-2024 Calculated very low density lipoprotein (VLDL) cholesterol measurement 16 mg/dL 5-40 [facility] Carbon dioxide, total [Moles /volume] in Central venous bloodOrdered By: Matthew Oro on 09-11-2024 CO2 [Moles/Vol] 21.6 mmol/L 21.0-32.0 [facility] Chloride assayOrdered By: Urban Oro on 09-11-2024 Chloride [Moles/Vol] 105 mmol/L 98-108 [facility] Discharge Instructionon 08-29 Discharge Instruction [facility] Medical Records Department [address] [place] [address] Instructions for Home/Discharge Instructions 09/11/24 1214 MR#: [id number] Acct: [id number] Name: EZRA GONZALEZ Rep #: [id number] : 1935 89 From: Matthew Oro DO [...] Home, Self Care 09/11/24 1440 Matthew Oro DO CC: Glenna Jacobson; Lorelei Pruett; [...] Thurman DO; Ashu Leonard MD Signed Normal [facility] Electroencephalogramon 09-11 Electroencephalogram [facility]/Neurology [address] [place] [address] MR#: [id number] Acct: [id number] Name: EZRA GONZALEZ Rep #: [id number] : 1935 89 From: Castillo Jones MD Referring Dr: Status: ADM MARIELOS Location: [place] [address] Date: 09/10/24 Sex: F C EEG Results Procedure Details EEG Procedure Details: Inpatient routine EEG report performed at [facility] Study start time: 1326 on 09/11/24 End [...] mild diffuse encephalopathy. Nguyen Jones MD 09/11/24 150 Date Castillo Jones MD CC: Dr. Matthew Oro DO; Dr. Castillo Jones MD; Dr. Chucky Ochoa DO Date Dictated: 09/11/241501 Date Transcribed: 09/11/241501 [employer] Trainer: [place] Signed Normal [facility] Erythrocyte distribution wid th ratioOrdered By: Matthew Oro on 09-11-2024 Erythrocyte distribution width (RBC) [Ratio] 12.8 % 11.6-14.6 [facility] Erythrocyte distribution wid th standard deviationOrdered By: Matthew Oro on 09-11-2024 Erythrocyte distribution width (RBC) [Ratio] 42.8 fl 35.1-43.9 [facility] Glomerular filtration rate ( GFR) estimation/1.73 sq m using serum, plasma, or whole bOrdered By: Matthew Oro on 09-11-2024 GFR/1.73 sq M.predicted among non-blacks MDRD (S/P/Bld) [Vol rate/Area] 61 mL/min/{1.73_m2} >60 [facility] Comment on above: mL/min/1.73m2 CKD-EP I Creatinine Equation (2020) Hematocrit Auto (Bld) [Volum e fraction]Ordered By: Matthew Oro on 09-11-2024 Hematocrit (Bld) [Volume fraction] 39.7 % 37-47 [facility] Hemoglobin measurementOrdere d By: Matthew Oro on 09-11-2024 Hemoglobin (Bld) [Mass/Vol] 13.1 g/dL 12.0-15.0 [facility] LDL calc ser/plasOrdered By: Matthew Oro on 09-11-2024 Cholesterol in LDL [Mass/Vol] 100 mg/dL [facility] Comment on above: Mdyonasrji=217-513 m g/dL & Higher Ypxn=582 mg/dL or greater Lipid Profileon 09-11-2024 CHOL:HDL 3.03 Normal [facility] Comment on above: Order Comment: Comme nts: NPO at [place] prior to lipid panel Performed By: #### L 500.4100, L100.0500, L500.2500 ####[facility] [address] [place], [address] Cholesterol [Mass/Vol] 172 mg/dL Normal <=200 [facility] Comment on above: Order Comment: Comme nts: NPO at [place] prior to lipid panel Result Comment: Chol esterol level, Desirable <200 mg/dL Borderline high cholesterol 200-239 mg/dL High cholesterol >=240 mg/dL Recommendations of the NCEP Adult Treatment Panel for the following risk-cutoff thresholds for the [place] Citizen population. Performed By: #### L 500.4100, L100.0500, L500.2500 ####[facility] [address] [place], [address] Cholesterol in HDL [Mass/Vol] 57 mg/dL Normal [facility] Comment on above: Order Comment: Comme nts: NPO at [place] prior to lipid panel Result Comment: Halima onal Cholesterol Education Program (NCEP) guidelines: <40 mg/dL: Low HDL-cholesterol (major risk factor for CHD) >= 60 mg/dL: High HDL-cholesterol (negative risk factor for CHD) HDL-cholesterol is affected by a number of factors, e.g. smoking, exercise, hormones, sex and age. Performed By: #### L 500.4100, L100.0500, L500.2500 ####[facility] [address] [place], [address] Cholesterol in LDL [Mass/Vol] 100 mg/dL Normal [facility] Comment on above: Order Comment: Comme nts: NPO at [place] prior to lipid panel Result Comment: Bord ewtroo=552-992 mg/dL Higher Svdf=455 mg/dL or greater Performed By: #### L 500.4100, L100.0500, L500.2500 ####[facility] [address] [place], [address] Cholesterol in VLDL [Mass/Vol] 16 mg/dL Normal 5-40 [facility] Comment on above: Order Comment: Comme nts: NPO at [place] prior to lipid panel Performed By: #### L 500.4100, L100.0500, L500.2500 ####[facility] [address] [place], [address] Triglyceride [Mass/Vol] 78 mg/dL Normal [facility] Comment on above: Order Comment: Comme nts: NPO at [place] prior to lipid panel Result Comment: The drugs N-Acetylcysteine and Metamizole may falsely depress this assay. Normal range: <150 mg/dL Borderline High: 150-199 mg/dL High: 200-499 mg/dL Very High: >500 mg/dL Performed By: #### L 500.4100, L100.0500, L500.2500 ####[facility] [address] [place], [address] MCV (mean corpuscular volume ) determinationOrdered By: Matthew Oro on 09-11-2024 MCV (RBC) [Entitic vol] 91.7 fL 81-99 [facility] Mean corpuscular hemoglobin (MCH) determinationOrdered By: Matthew Oro on 09-11-2024 MCH (RBC) [Entitic mass] 30.3 pg 27.0-32.0 [facility] Mean corpuscular hemoglobin concentration (MCHC) determinationOrdered By: Matthew Oro on 09-11-2024 MCHC (RBC) [Mass/Vol] 33.0 g/dL 32-36 [facility] Mean platelet volume determi nationOrdered By: Matthew Oro on 09-11-2024 Platelet mean volume (Bld) [Entitic vol] 10.7 fL 6.2-12.0 [facility] Platelet countOrdered By: Urban Oro on 09-11-2024 Platelets (Bld) [#/Vol] 271 10*3/uL 150-450 [facility] Potassium measurement (mass/ volume)Ordered By: Matthew Oro on 09-11-2024 Potassium (Unsp spec) [Mass/Vol] 4.4 mmol/L 3.3-5.1 [facility] RBC Auto (Bld) [#/Vol]Ordere d By: Matthew Oro on 09-11-2024 RBC (Bld) [#/Vol] 4.33 10*6/uL 4.2-5.4 [facility] Screening total cholesterol/ high density lipoprotein (HDL) cholesterol ratioOrdered By: Matthew Oro on 09-11-2024 Cholesterol.total/Cholest felipe in HDL [Mass ratio] 3.03 {ratio} [facility] Serum creatinine measurement (mass/volume)Ordered By: Matthew Oro on 09-11-2024 Creatinine [Mass/Vol] 0.91 mg/dL 0.70-1.20 [facility] Serum glucose measurement (m ass/volume)Ordered By: Matthew Oro on 09-11-2024 Glucose [Mass/Vol] 118 mg/dL High 70-99 [facility] Serum or plasma calcium viktoria urement (mass/volume)Ordered By: Matthew Oro on 09-11-2024 Calcium [Mass/Vol] 8.8 mg/dL 7.6-11.0 [facility] Serum or plasma cholesterol in HDL measurement (mass/volume)Ordered By: Matthew Oro on 09-11-2024 Cholesterol in HDL [Mass/Vol] 57 mg/dL >40 [facility] Comment on above: National Cholesterol Education Program (NCEP) guidelines:<40 mg/dL: Low HDL-cholesterol (major risk factor for CHD)>= 60 mg/dL: High HDL-cholesterol (negative risk factor for CHD)HDL-cholesterol is affected by a number of factors, e.g. smoking, exercise, hormones, sex and age. Serum or plasma cholesterol measurement (mass/volume)Ordered By: Matthew Oro on 09-11-2024 Cholesterol [Mass/Vol] 172 mg/dL <201 [facility] Comment on above: Cholesterol level, D esirable <200 mg/dLBorderline high cholesterol 200-239 mg/dLHigh cholesterol >=240 mg/dLRecommendations of the NCEP Adult Treatment Panel for the following risk-cutoff thresholds for the [place] Citizen population. Serum or plasma urea nitroge n measurement (mass/volume)Ordered By: Matthew Oro on 09-11-2024 Urea nitrogen [Mass/Vol] 28 mg/dL High 4-19 [facility] Sodium levelOrdered By: All Oro on 09-11-2024 Sodium [Moles/Vol] 139 mmol/L 133-145 [facility] Triglycerides measurementOrd ered By: Matthew Oro on 09-11-2024 Triglyceride [Mass/Vol] 78 mg/dL <199 [facility] Comment on above: The drugs N-Acetylcy steine and Metamizole may falsely depress this assay. Normal range: <150 mg/dLBorderline High: 150-199 mg/dLHigh: 200-499 mg/dLVery High: >500 mg/dL White blood cell (WBC) count Ordered By: Matthew Oro on 09-11-2024 WBC (Bld) [#/Vol] 12.2 10*3/uL High 4.4-11.0 [facility] Absolute lymphocyte countOrd ered By: Teri Garcia on 09-10-2024 Lymphocytes Auto (Unsp spec) [#/Vol] 1.91 10*3/uL 0.83-4.51 [facility] Absolute neutrophil countOrd ered By: Teri Garcia on 09-10-2024 Neutrophils (Bld) [#/Vol] 8.3 10*3/uL High 2.0-7.7 [facility] Activated partial thrombopla stin time (aPTT) in platelet poor plasma by coagulation aOrdered By: Teri Garcia on 09-10-2024 aPTT Coag (PPP) [Time] 31.8 s 24.1-36.2 [facility] Anion gap in Serum or Plasma Ordered By: Teri Garcia on 09-10-2024 Anion gap [Moles/Vol] 12 mmol/L 5-15 [facility] Automated lymphocyte count a s percentage of total leukocytesOrdered By: Teri Garcia on 09-10-2024 Lymphocytes/100 WBC Auto (Unsp spec) 16.6 % Low 19-41 [facility] BUN/creatinine ratioOrdered By: Teri Garcia on 09-10-2024 Urea nitrogen/Creatinine [Mass ratio] 34.8 mg/mg High 10-20 [facility] Basic Metabolic Profile (BMP )on 09-10-2024 BUN/CRE 34.8 RATIO High - [facility] Comment on above: Performed By: #### L 300.4310, L500.2500, L100.0100, L501.4021, L300.3900 ####[facility] [address] [place], [address] Calcium [Mass/Vol] 8.7 mg/dL Normal 7.6-11.0 [facility] Comment on above: Performed By: #### L 300.4310, L500.2500, L100.0100, L501.4021, L300.3900 ####[facility] [address] [place], [address] Chloride [Moles/Vol] 103 mmol/L Normal 98-108 [facility] Comment on above: Performed By: #### L 300.4310, L500.2500, L100.0100, L501.4021, L300.3900 ####[facility] [address] [place], [address] CO2 [Moles/Vol] 21.8 mmol/L Normal 21.0-32.0 [facility] Comment on above: Performed By: #### L 300.4310, L500.2500, L100.0100, L501.4021, L300.3900 ####[facility] [address] [place], [address] Creatinine [Mass/Vol] 1.05 mg/dL Normal 0.70-1.20 [facility] Comment on above: Performed By: #### L 300.4310, L500.2500, L100.0100, L501.4021, L300.3900 ####[facility] [address] [place], [address] ECRCL 33.63 ml/min Low 50-250 [facility] Comment on above: Performed By: #### L 300.4310, L500.2500, L100.0100, L501.4021, L300.3900 ####[facility] [address] [place], [address] GAP 12 Normal 5-15 [facility] Comment on above: Performed By: #### L 300.4310, L500.2500, L100.0100, L501.4021, L300.3900 ####[facility] [address] [place], [address] GFR/1.73 sq M.predicted among non-blacks MDRD (S/P/Bld) [Vol rate/Area] 51 mL/min/{1.73_m2} Low >60 [facility] Comment on above: Result Comment: mL/m in/1.73m2 CKD-EPI Creatinine Equation (2020) Performed By: #### L 300.4310, L500.2500, L100.0100, L501.4021, L300.3900 ####[facility] [address] [place], [address] Glucose [Mass/Vol] 131 mg/dL High 70-99 [facility] Comment on above: Performed By: #### L 300.4310, L500.2500, L100.0100, L501.4021, L300.3900 ####[facility] [address] [place], [address] Potassium [Moles/Vol] 4.4 mmol/L Normal 3.3-5.1 [facility] Comment on above: Result Comment: Hemo lysis present, Results??could be affected. ?? Performed By: #### L 300.4310, L500.2500, L100.0100, L501.4021, L300.3900 ####[facility] [address] [place], [address] Sodium [Moles/Vol] 137 mmol/L Normal 133-145 [facility] Comment on above: Performed By: #### L 300.4310, L500.2500, L100.0100, L501.4021, L300.3900 ####[facility] [address] [place], [address] Urea nitrogen [Mass/Vol] 37 mg/dL High 4-19 [facility] Comment on above: Performed By: #### L 300.4310, L500.2500, L100.0100, L501.4021, L300.3900 ####[facility] [address] [place], [address] Basophil percentageOrdered B y: Teri Garcia on 09-10-2024 Basophils/100 WBC (Bld) 0.4 % 0-1 [facility] Bilirubin Test strip Ql (U)O rdered By: Teri Garcia on 09-10-2024 Bilirubin Ql (U) Negative Negative [facility] Brain without Contraston Brain without Contrast [facility] Imaging Services [address] [place] [address] Brain without Contrast MR#: [id number] Acct: [id number] Name: EZRA GONZALEZ Rep #: [id number] : 1935 F 89 From: Matthias Márquez MD PCP: Dr. Chucky Ochoa, DO Status: ADM MARIELOS Study: Brain without Contrast Date of Exam: 09/10/24 Exam# [id number] Ordering Dr: Matthew Oro DO PROCEDURE: BRAIN [...] Atrophy and mild microvascular changes Reading Location: [facility] CC: Dr. Matthew Oro, DO; Dr. Chucky Ochoa, DO Salesforce Trainer: Signed Normal [facility] CBC W/Diff, Automatedon 08-29 Absolute Lymph 1.91 X10 3/uL Normal 0.83-4.51 [facility] Comment on above: Performed By: #### L 300.4310, L500.2500, L100.0100, L501.4021, L300.3900 ####[facility] [address] [place], [address] Absolute Neut 8.3 X10 3/uL High 2.0-7.7 [facility] Comment on above: Performed By: #### L 300.4310, L500.2500, L100.0100, L501.4021, L300.3900 ####[facility] [address] [place], [address] Basophils/100 WBC (Bld) 0.4 % Normal 0-1 [facility] Comment on above: Performed By: #### L 300.4310, L500.2500, L100.0100, L501.4021, L300.3900 ####[facility] [address] [place], [address] Eosinophils/100 WBC (Bld) 1.2 % Normal 0-5 [facility] Comment on above: Performed By: #### L 300.4310, L500.2500, L100.0100, L501.4021, L300.3900 ####[facility] [address] [place], [address] Erythrocyte distribution width (RBC) [Ratio] 13.2 % Normal 11.6-14.6 [facility] Comment on above: Performed By: #### L 300.4310, L500.2500, L100.0100, L501.4021, L300.3900 ####[facility] [address] [place], [address] Hematocrit (Bld) [Volume fraction] 41.7 % Normal 37-47 [facility] Comment on above: Performed By: #### L 300.4310, L500.2500, L100.0100, L501.4021, L300.3900 ####[facility] [address] [place], [address] Hemoglobin (Bld) [Mass/Vol] 13.6 g/dL Normal 12.0-15.0 [facility] Comment on above: Performed By: #### L 300.4310, L500.2500, L100.0100, L501.4021, L300.3900 ####[facility] [address] [place], [address] IG% 0.400 Normal 0.0-0.9 [facility] Comment on above: Result Comment: IG% - Immature Granulocytes (promyelocytes, myelocytes and metamyelocytes) > 1% indicates that a LEFT SHIFT is Present. Performed By: #### L 300.4310, L500.2500, L100.0100, L501.4021, L300.3900 ####[facility] [address] [place], [address] Lymphocytes/100 WBC (Bld) 16.6 % Low 19-41 [facility] Comment on above: Performed By: #### L 300.4310, L500.2500, L100.0100, L501.4021, L300.3900 ####[facility] [address] [place], [address] MCH (RBC) [Entitic mass] 30.6 pg Normal 27.0-32.0 [facility] Comment on above: Performed By: #### L 300.4310, L500.2500, L100.0100, L501.4021, L300.3900 ####[facility] [address] [place], [address] MCHC (RBC) [Mass/Vol] 32.6 g/dL Normal 32-36 [facility] Comment on above: Performed By: #### L 300.4310, L500.2500, L100.0100, L501.4021, L300.3900 ####[facility] [address] [place], [address] MCV (RBC) [Entitic vol] 93.9 fL Normal 81-99 [facility] Comment on above: Performed By: #### L 300.4310, L500.2500, L100.0100, L501.4021, L300.3900 ####[facility] [address] [place], [address] Monocytes/100 WBC (Bld) 9.1 % Normal 0-10 [facility] Comment on above: Performed By: #### L 300.4310, L500.2500, L100.0100, L501.4021, L300.3900 ####[facility] [address] [place], [address] Neutrophils/100 WBC (Bld) 72.3 % High 47-70 [facility] Comment on above: Performed By: #### L 300.4310, L500.2500, L100.0100, L501.4021, L300.3900 ####[facility] [address] [place], [address] Nucleated RBC (Bld) [#/Vol] 0 10*3/uL Normal 0-5 [facility] Comment on above: Performed By: #### L 300.4310, L500.2500, L100.0100, L501.4021, L300.3900 ####[facility] [address] [place], [address] Platelet mean volume (Bld) [Entitic vol] 10.4 fL Normal 6.2-12.0 [facility] Comment on above: Performed By: #### L 300.4310, L500.2500, L100.0100, L501.4021, L300.3900 ####[facility] [address] [place], [address] Platelets (Bld) [#/Vol] 269 10*3/uL Normal 150-450 [facility] Comment on above: Performed By: #### L 300.4310, L500.2500, L100.0100, L501.4021, L300.3900 ####[facility] [address] [place], [address] RBC (Bld) [#/Vol] 4.44 10*6/uL Normal 4.2-5.4 [facility] Comment on above: Performed By: #### L 300.4310, L500.2500, L100.0100, L501.4021, L300.3900 ####[facility] [address] [place], [address] RDW SD 45.4 fl High 35.1-43.9 [facility] Comment on above: Performed By: #### L 300.4310, L500.2500, L100.0100, L501.4021, L300.3900 ####[facility] [address] [place], [address] WBC (Bld) [#/Vol] 11.5 10*3/uL High 4.4-11.0 [facility] Comment on above: Performed By: #### L 300.4310, L500.2500, L100.0100, L501.4021, L300.3900 ####[facility] [address] [place], [address] Carbon dioxide, total [Moles /volume] in Central venous bloodOrdered By: Teri Garcia on 09-10-2024 CO2 [Moles/Vol] 21.8 mmol/L 21.0-32.0 [facility] Chloride assayOrdered By: Adam Garcia on 09-10-2024 Chloride [Moles/Vol] 103 mmol/L 98-108 [facility] Emergency Department Summary on 09-10-2024 Emergency Department Summary [facility] Medical Records Department [address] [place] [address] Emergency Department Summary 09/10/24 MR#: [id number] Acct: [id number] Name: EZRA GONZALEZ Rep #: [id number] : 1935 89 From: Teri Garcia DO PCP: Dr. Chucky Ochoa DO Status:[facility] ER Location: ED HPI History of Present [...] son Wilfredo (her eldest son) phone number [phone]. He states that she follows with Dr. Juarez (neurology) and he suspects that this could be epileptic episodes. He also tells me that he talk to her about 615 this morning and she seemed a little off with her mentation as well as her pronunciation. 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 Normal [facility] Eosinophil percentageOrdered By: Teri Garcia on 09-10-2024 Eosinophils/100 WBC (Bld) 1.2 % 0-5 [facility] Erythrocyte distribution wid th ratioOrdered By: Teri Garcia on 09-10-2024 Erythrocyte distribution width (RBC) [Ratio] 13.2 % 11.6-14.6 [facility] Erythrocyte distribution wid th standard deviationOrdered By: Teri Garcia on 09-10-2024 Erythrocyte distribution width (RBC) [Ratio] 45.4 fl High 35.1-43.9 [facility] Glomerular filtration rate ( GFR) estimation/1.73 sq m using serum, plasma, or whole bOrdered By: Teri Garcia on 09-10-2024 GFR/1.73 sq M.predicted among non-blacks MDRD (S/P/Bld) [Vol rate/Area] 51 mL/min/{1.73_m2} Low >60 [facility] Comment on above: mL/min/1.73m2 CKD-EP I Creatinine Equation (2020) H AND P Exam - [facility] 09-10-2024 H&P Exam - Hospitalist [facility] Medical Records Department [address] [place] [address] H P Exam - Hospitalist 09/10/24 1603 MR#: [id number] Acct: [id number] Name: EZRA GONZALEZ Rep #: [id number] : 1935 89 From: Matthew Oro DO PCP: Dr. Chucky Ochoa DO Status:ADM MARIELOS Location: [place] [address] HPI - General General Date of Admission: 09/10/24 Date of Service: 09/10/24 Chief Complaint: Dysarthria HPI Narrative EZRA GONZALEZ, is a 89 F who presented to [facility] ED on 09/10/2024 with dysarthria. Patient lives at assisted living at [place]. Has history of seizures and is on [...] any other acute concerns at this time. 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 Normal [facility] Hematocrit Auto (Bld) [Volum e fraction]Ordered By: Teri Garcia on 09-10-2024 Hematocrit (Bld) [Volume fraction] 41.7 % 37-47 [facility] Hemoglobin measurementOrdere d By: Teri Garcia on 09-10-2024 Hemoglobin (Bld) [Mass/Vol] 13.6 g/dL 12.0-15.0 [facility] Immature granulocytes/100 WB C Auto (Bld)Ordered By: Teri Garcia on 09-10-2024 Immature granulocytes/100 WBC (Bld) 0.400 % 0.0-0.9 [facility] Comment on above: IG% - Immature Granu locytes (promyelocytes, myelocytes and metamyelocytes) > 1% indicates that a LEFT SHIFT is Present. International normalized rat io (INR) calculationOrdered By: Teri Garcia on 09-10-2024 INR Coag (Bld) [Relative time] 2.4 {INR} [facility] Ketones Test strip Ql (U)Ord ered By: Teri Garcia on 09-10-2024 Ketones Ql (U) Negative Negative [facility] L499.0042on 09-10-2024 Trop T High Sen 17 ng/L High <=14 [facility] Comment on above: Performed By: #### L 499.0042 ####[facility] [address] [place], [address] L499.0043on 09-10-2024 Trop T High Sen 15 ng/L High <=14 [facility] Comment on above: Performed By: #### L 499.0043 #### [facility] Laboratory [address] [place], [address] L501.4021on 09-10-2024 Trop T High Sen 18 ng/L High <=14 [facility] Comment on above: Performed By: #### L 300.4310, L500.2500, L100.0100, L501.4021, L300.3900 ####[facility] [address] [place], [address] MCV (mean corpuscular volume ) determinationOrdered By: Teri Garcia on 09-10-2024 MCV (RBC) [Entitic vol] 93.9 fL 81-99 [facility] Magnetic resonance imaging r eportOrdered By: Matthias Márquez on 09-10-2024 Study report [facility] Imaging Services [address] [place] [address] Brain without Contrast MR#: [id number] Acct: [id number] Name: EZRA GONZALEZ Rep #: [id number] : 1935 F 89 From: Bill Márquez MD PCP: Dr. Chucky Ochoa, DO Status: ADM MARIELOS Study:Brain without Contrast Date of Exam: 09/10/24 Exam# [id number] Ordering Dr: Matthew Patel DO PROCEDURE: BRAIN [...] Atrophy and mild microvascular changes Reading Location: [facility] CC: Dr. Matthew Oro, DO; Dr. Chucky Ochoa, DO ~ Salesforce Trainer: Signed [facility] Mean corpuscular hemoglobin (MCH) determinationOrdered By: Teri Garcia on 09-10-2024 MCH (RBC) [Entitic mass] 30.6 pg 27.0-32.0 [facility] Mean corpuscular hemoglobin concentration (MCHC) determinationOrdered By: Teri Garcia on 09-10-2024 MCHC (RBC) [Mass/Vol] 32.6 g/dL 32-36 [facility] Mean platelet volume determi nationOrdered By: Teri Garcia on 09-10-2024 Platelet mean volume (Bld) [Entitic vol] 10.4 fL 6.2-12.0 [facility] Microscopic analysis of urin e for red blood cells (RBC)Ordered By: Teri Garcia on 09-10-2024 Microscopic analysis of urine for red blood cells (RBC) 0 SEEN /hpf 0-5 [facility] Monocyte percentageOrdered B y: Teri Garcia on 09-10-2024 Monocytes/100 WBC (Bld) 9.1 % 0-10 [facility] Mucus LM Ql (Urine sed)Order ed By: Teri Garcia on 09-10-2024 Mucus Ql (Urine sed) 0 SEEN /hpf [facility] Neutrophil percentageOrdered By: Teri Garcia on 09-10-2024 Neutrophils/100 WBC (Bld) 72.3 % High 47-70 [facility] Nitrite Test strip Ql (U)Ord ered By: Teri Garcia on 09-10-2024 Nitrite Ql (U) Negative Negative [facility] Nucleated red blood cell per centageOrdered By: Teri Garcia on 09-10-2024 Nucleated RBC/100 WBC (Bld) [Ratio] 0 % 0-5 [facility] Partial Thromboplast Timeon 09-10-2024 aPTT Coag (Bld) [Time] 31.8 s Normal 24.1-36.2 [facility] Comment on above: Performed By: #### L 300.4310, L500.2500, L100.0100, L501.4021, L300.3900 ####[facility] [address] [place], [address] Platelet countOrdered By: Adam Garcia on 09-10-2024 Platelets (Bld) [#/Vol] 269 10*3/uL 150-450 [facility] Potassium measurement (mass/ volume)Ordered By: Teri Garcia on 09-10-2024 Potassium (Unsp spec) [Mass/Vol] 4.4 mmol/L 3.3-5.1 [facility] Comment on above: Hemolysis present, R esults could be affected. Protein Test strip Ql (U)Ord ered By: Teri Garcia on 09-10-2024 Protein Ql (U) 30 mg/dl High Negative [facility] Prothrombin Time w/INRon INR Coag (PPP) [Relative time] 2.4 {INR} Normal [facility] Comment on above: Performed By: #### L 300.4310, L500.2500, L100.0100, L501.4021, L300.3900 ####[facility] [address] [place], [address] PT Coag (PPP) [Time] 26.4 s High 11.7-14.9 [facility] Comment on above: Performed By: #### L 300.4310, L500.2500, L100.0100, L501.4021, L300.3900 ####[facility] [address] [place], [address] Prothrombin timeOrdered By: Teri Garcia on 09-10-2024 PT Coag (PPP) [Time] 26.4 s High 11.7-14.9 [facility] RBC Auto (Bld) [#/Vol]Ordere d By: Teri Garcia on 09-10-2024 RBC (Bld) [#/Vol] 4.44 10*6/uL 4.2-5.4 [facility] STROKE Brain/Head without Co nton 09-10-2024 STROKE Brain/Head without Cont [facility] Imaging Services [address] [place], [place] [address] STROKE Brain/Head without Cont MR#: [id number] Acct: [id number] Name: EZRA GONZALEZ Rep #: [id number] : 1935 F 89 From: Mio nayak MD PCP: Dr. Chucky Ochoa, DO Status: [facility] Study: STROKE Brain/Head without Cont Date of Exam: 0 09/10/24 Exam# [id number] Ordering Dr: Teri Garcia DO PROCEDURE: STROKE [...] 2:05 pm with readback verification. Reading Location: [id number] CC: Dr. Teri Garcia DO; Dr. Chucky Ochoa DO Salesforce Trainer: Signed Normal [facility] STROKE CTA Head AND Neck W/C onon 09-10-2024 STROKE CTA Head AND Neck W/Con [facility] Imaging Services [address] [place] [address] STROKE CTA Head AND Neck W/Con MR#: [id number] Acct: [id number] Name: EZRA GONZALEZ Rep #: [id number] : 1935 F 89 From: Mio nayak MD PCP: Dr. Chucky Ochoa DO Status: REG ER Study: STROKE CTA Head AND Neck W/Con Date of Exam: 0 09/10/24 Exam# [id number] Ordering Dr: Teri Garcia DO PROCEDURE: STROKE [...] RIGHT Vertebral: Unremarkable. LEFT Vertebral: Unremarkable. Anatomy: [employer] of [employer] anatomy is normal. Aneurysm or [...] 3:01 pm with readback verification. Reading Location: [id number] CC: Dr. Teri Garcia DO; Dr. Chucky Ochoa DO Salesforce Trainer: Signed Normal [facility] Serum creatinine measurement (mass/volume)Ordered By: Teri Garcia on 09-10-2024 Creatinine [Mass/Vol] 1.05 mg/dL 0.70-1.20 [facility] Serum glucose measurement (m ass/volume)Ordered By: Teri Garcia on 09-10-2024 Glucose [Mass/Vol] 131 mg/dL High 70-99 [facility] Serum or plasma calcium viktoria urement (mass/volume)Ordered By: Teri Garcia on 09-10-2024 Calcium [Mass/Vol] 8.7 mg/dL 7.6-11.0 [facility] Serum or plasma urea nitroge n measurement (mass/volume)Ordered By: Teri Garcia on 09-10-2024 Urea nitrogen [Mass/Vol] 37 mg/dL High 4-19 [facility] Sodium levelOrdered By: Ollie Garcia on 09-10-2024 Sodium [Moles/Vol] 137 mmol/L 133-145 [facility] Squamous epithelial cells de tection in urine sediment by light microscopyOrdered By: Teri Garcia on 09-10-2024 Epithelial cells.squamous LM Ql (Urine sed) 0-5 SEEN /hpf 5-10 [facility] Troponin T.cardiac [Mass/vol ume] in Serum or Plasma by High sensitivity methodOrdered By: Teri Garcia on 09-10-2024 Troponin T.cardiac High sensitivity method [Mass/Vol] 15 ng/L High <14 [facility] Troponin T.cardiac High sensitivity method [Mass/Vol] 17 ng/L High <14 [facility] Troponin T.cardiac High sensitivity method [Mass/Vol] 18 ng/L High <14 [facility] Urinalysis, Completeon 09-10 BACTERIA RARE Normal None Seen [facility] Comment on above: Order Comment: RANDY CTOR TO SPECIFY Performed By: #### L 400.0001 ####[facility] [address] [place], [address] EPI,SQUAMOUS 0-5 SEEN Normal 5-10 [facility] Comment on above: Order Comment: RANDY CTOR TO SPECIFY Performed By: #### L 400.0001 ####[facility] [address] [place], [address] WBC 10-25 SEEN Normal 0-5 [facility] Comment on above: Order Comment: RANDY CTOR TO SPECIFY Performed By: #### L 400.0001 ####[facility] [address] [place], [address] Mucus Ql (Urine sed) 0 SEEN Normal [facility] Comment on above: Order Comment: RANDY CTOR TO SPECIFY Performed By: #### L 400.0001 ####[facility] [address] [place], [address] RBC 0 SEEN Normal 0-5 [facility] Comment on above: Order Comment: RANDY CTOR TO SPECIFY Performed By: #### L 400.0001 ####[facility] [address] [place], [address] Urine clarityOrdered By: Lashaun Garcia on 09-10-2024 Clarity (U) Clear Clear [facility] Urine color determinationOrd ered By: Teri Garcia on 09-10-2024 Color (U) Straw Yellow [facility] Urine cultureOrdered By: Lashaun Garcia on 09-10-2024 Bacteria identified Cx Nom (U) Klebsiella pneumoniae sp pneum Abnormal [facility] Urine glucose detectionOrder ed By: Teri Garcia on 09-10-2024 Glucose Ql (U) Normal mg/dl Normal [facility] Urine leukocyte esterase det ection by dipstickOrdered By: Teri Garcia on 09-10-2024 Leukocyte esterase Test strip Ql (U) 500 /ul High Negative [facility] Urine pHOrdered By: Teri romero on 09-10-2024 pH (U) 5.0 [pH] 5.0 - 8.0 [facility] Urine sediment bacteria coun t by microscopy (number/high power field)Ordered By: Teri Garcia on 09-10-2024 Bacteria LM.HPF (Urine sed) [#/Area] RARE /hpf None Seen [facility] Urine specific gravity measu rementOrdered By: Teri Garcia on 09-10-2024 Specific gravity (U) [Rel density] 1.010 1.002-1.030 [facility] Urine urobilinogen measureme ntOrdered By: Teri Garcia on 09-10-2024 Urobilinogen Ql (U) Normal mg/dl Normal [facility] White blood cell (WBC) count Ordered By: Teri Garcia on 09-10-2024 WBC (Bld) [#/Vol] 11.5 10*3/uL High 4.4-11.0 [facility] White blood cell countOrdere d By: Teri Garcia on 09-10-2024 White blood cell count 10-25 SEEN /hpf 0-5 [facility] Absolute lymphocyte countOrd ered By: Anoop Blackmon on 09-08-2024 Lymphocytes Auto (Unsp spec) [#/Vol] 2.21 10*3/uL 0.83-4.51 [facility] Absolute neutrophil countOrd ered By: Anoop Blackmon on 09-08-2024 Neutrophils (Bld) [#/Vol] 10.3 10*3/uL High 2.0-7.7 [facility] Anion gap in Serum or Plasma Ordered By: Anoop Blackmon on 09-08-2024 Anion gap [Moles/Vol] 11 mmol/L 5-15 [facility] Automated lymphocyte count a s percentage of total leukocytesOrdered By: Aonop Blackmon on 09-08-2024 Lymphocytes/100 WBC Auto (Unsp spec) 16.2 % Low 19-41 [facility] BUN/creatinine ratioOrdered By: Anoop Blackmon on 09-08-2024 Urea nitrogen/Creatinine [Mass ratio] 35.2 mg/mg High 10-20 [facility] Basic Metabolic Profile (BMP )on 09-08-2024 BUN/CRE 35.2 RATIO High - [facility] Comment on above: Performed By: #### L 100.0100, L500.2500, L300.3900, L3300.4400 ####[facility] [address] [place], [address] Calcium [Mass/Vol] 8.9 mg/dL Normal 7.6-11.0 [facility] Comment on above: Performed By: #### L 100.0100, L500.2500, L300.3900, L3300.4400 ####[facility] [address] [place], [address] Chloride [Moles/Vol] 105 mmol/L Normal 98-108 [facility] Comment on above: Performed By: #### L 100.0100, L500.2500, L300.3900, L3300.4400 ####[facility] [address] [place], [address] CO2 [Moles/Vol] 22.4 mmol/L Normal 21.0-32.0 [facility] Comment on above: Performed By: #### L 100.0100, L500.2500, L300.3900, L3300.4400 ####[facility] [address] [place], [address] Creatinine [Mass/Vol] 1.00 mg/dL Normal 0.70-1.20 [facility] Comment on above: Performed By: #### L 100.0100, L500.2500, L300.3900, L3300.4400 ####[facility] [address] [place], [address] ECRCL 39.57 ml/min Low 50-250 [facility] Comment on above: Performed By: #### L 100.0100, L500.2500, L300.3900, L3300.4400 ####[facility] [address] [place], [address] GAP 11 Normal 5-15 [facility] Comment on above: Performed By: #### L 100.0100, L500.2500, L300.3900, L3300.4400 ####[facility] [address] [place], [address] GFR/1.73 sq M.predicted among non-blacks MDRD (S/P/Bld) [Vol rate/Area] 54 mL/min/{1.73_m2} Low >60 [facility] Comment on above: Result Comment: mL/m in/1.73m2 CKD-EPI Creatinine Equation (2020) Performed By: #### L 100.0100, L500.2500, L300.3900, L3300.4400 ####[facility] [address] [place], [address] Glucose [Mass/Vol] 149 mg/dL High 70-99 [facility] Comment on above: Performed By: #### L 100.0100, L500.2500, L300.3900, L3300.4400 ####[facility] [address] [place], [address] Potassium [Moles/Vol] 4.7 mmol/L Normal 3.3-5.1 [facility] Comment on above: Performed By: #### L 100.0100, L500.2500, L300.3900, L3300.4400 ####[facility] [address] [place], [address] Sodium [Moles/Vol] 138 mmol/L Normal 133-145 [facility] Comment on above: Performed By: #### L 100.0100, L500.2500, L300.3900, L3300.4400 ####[facility] [address] [place], [address] Urea nitrogen [Mass/Vol] 35 mg/dL High 4-19 [facility] Comment on above: Performed By: #### L 100.0100, L500.2500, L300.3900, L3300.4400 ####[facility] [address] [place], [address] Basophil percentageOrdered B y: Anoop Blackmon on 09-08-2024 Basophils/100 WBC (Bld) 0.2 % 0-1 [facility] CBC W/Diff, Automatedon 08-29 Absolute Lymph 2.21 X10 3/uL Normal 0.83-4.51 [facility] Comment on above: Performed By: #### L 100.0100, L500.2500, L300.3900, L3300.4400 ####[facility] [address] [place], [address] Absolute Neut 10.3 X10 3/uL High 2.0-7.7 [facility] Comment on above: Performed By: #### L 100.0100, L500.2500, L300.3900, L3300.4400 ####[facility] [address] [place], [address] Basophils/100 WBC (Bld) 0.2 % Normal 0-1 [facility] Comment on above: Performed By: #### L 100.0100, L500.2500, L300.3900, L3300.4400 ####[facility] [address] [place], [address] Eosinophils/100 WBC (Bld) 0.7 % Normal 0-5 [facility] Comment on above: Performed By: #### L 100.0100, L500.2500, L300.3900, L3300.4400 ####[facility] [address] [place], [address] Erythrocyte distribution width (RBC) [Ratio] 13.2 % Normal 11.6-14.6 [facility] Comment on above: Performed By: #### L 100.0100, L500.2500, L300.3900, L3300.4400 ####[facility] [address] [place], [address] Hematocrit (Bld) [Volume fraction] 41.4 % Normal 37-47 [facility] Comment on above: Performed By: #### L 100.0100, L500.2500, L300.3900, L3300.4400 ####[facility] [address] [place], [address] Hemoglobin (Bld) [Mass/Vol] 13.8 g/dL Normal 12.0-15.0 [facility] Comment on above: Performed By: #### L 100.0100, L500.2500, L300.3900, L3300.4400 ####[facility] [address] [place], [address] IG% 0.400 Normal 0.0-0.9 [facility] Comment on above: Result Comment: IG% - Immature Granulocytes (promyelocytes, myelocytes and metamyelocytes) > 1% indicates that a LEFT SHIFT is Present. Performed By: #### L 100.0100, L500.2500, L300.3900, L3300.4400 ####[facility] [address] [place], [address] Lymphocytes/100 WBC (Bld) 16.2 % Low 19-41 [facility] Comment on above: Performed By: #### L 100.0100, L500.2500, L300.3900, L3300.4400 ####[facility] [address] [place], [address] MCH (RBC) [Entitic mass] 31.4 pg Normal 27.0-32.0 [facility] Comment on above: Performed By: #### L 100.0100, L500.2500, L300.3900, L3300.4400 ####[facility] [address] [place], [address] MCHC (RBC) [Mass/Vol] 33.3 g/dL Normal 32-36 [facility] Comment on above: Performed By: #### L 100.0100, L500.2500, L300.3900, L3300.4400 ####[facility] [address] [place], [address] MCV (RBC) [Entitic vol] 94.1 fL Normal 81-99 [facility] Comment on above: Performed By: #### L 100.0100, L500.2500, L300.3900, L3300.4400 ####[facility] [address] [place], [address] Monocytes/100 WBC (Bld) 6.6 % Normal 0-10 [facility] Comment on above: Performed By: #### L 100.0100, L500.2500, L300.3900, L3300.4400 ####[facility] [address] [place], [address] Neutrophils/100 WBC (Bld) 75.9 % High 47-70 [facility] Comment on above: Performed By: #### L 100.0100, L500.2500, L300.3900, L3300.4400 ####[facility] [address] [place], [address] Nucleated RBC (Bld) [#/Vol] 0 10*3/uL Normal 0-5 [facility] Comment on above: Performed By: #### L 100.0100, L500.2500, L300.3900, L3300.4400 ####[facility] [address] [place], [address] Platelet mean volume (Bld) [Entitic vol] 10.8 fL Normal 6.2-12.0 [facility] Comment on above: Performed By: #### L 100.0100, L500.2500, L300.3900, L3300.4400 ####[facility] [address] [place], [address] Platelets (Bld) [#/Vol] 326 10*3/uL Normal 150-450 [facility] Comment on above: Performed By: #### L 100.0100, L500.2500, L300.3900, L3300.4400 ####[facility] [address] [place], [address] RBC (Bld) [#/Vol] 4.40 10*6/uL Normal 4.2-5.4 [facility] Comment on above: Performed By: #### L 100.0100, L500.2500, L300.3900, L3300.4400 ####[facility] [address] [place], [address] RDW SD 45.2 fl High 35.1-43.9 [facility] Comment on above: Performed By: #### L 100.0100, L500.2500, L300.3900, L3300.4400 ####[facility] [address] [place], [address] WBC (Bld) [#/Vol] 13.6 10*3/uL High 4.4-11.0 [facility] Comment on above: Performed By: #### L 100.0100, L500.2500, L300.3900, L3300.4400 ####[facility] [address] [place], [address] Carbon dioxide, total [Moles /volume] in Central venous bloodOrdered By: Anoop Blackmon on 09-08-2024 CO2 [Moles/Vol] 22.4 mmol/L 21.0-32.0 [facility] Chloride assayOrdered By: Monserrat Blackmon on 09-08-2024 Chloride [Moles/Vol] 105 mmol/L 98-108 [facility] Emergency Department Summary on 09-08-2024 Emergency Department Summary [facility] Medical Records Department [address] [place] [address] Emergency Department Summary 09/08/24 MR#: [id number] Acct: [id number] Name: EZRA GONZALEZ Rep #: [id number] : 1935 89 From: Anoop Blackmon MD [...] Spinal stenosis Osteoarthritis 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 Normal [facility] Eosinophil percentageOrdered By: Anoop Blackmon on 09-08-2024 Eosinophils/100 WBC (Bld) 0.7 % 0-5 [facility] Erythrocyte distribution wid th ratioOrdered By: Anoop Blakcmon on 09-08-2024 Erythrocyte distribution width (RBC) [Ratio] 13.2 % 11.6-14.6 [facility] Erythrocyte distribution wid th standard deviationOrdered By: Anoop Blackmon on 09-08-2024 Erythrocyte distribution width (RBC) [Ratio] 45.2 fl High 35.1-43.9 [facility] Glomerular filtration rate ( GFR) estimation/1.73 sq m using serum, plasma, or whole bOrdered By: Anoop Blackmon on 09-08-2024 GFR/1.73 sq M.predicted among non-blacks MDRD (S/P/Bld) [Vol rate/Area] 54 mL/min/{1.73_m2} Low >60 [facility] Comment on above: mL/min/1.73m2 CKD-EP I Creatinine Equation (2020) Hematocrit Auto (Bld) [Volum e fraction]Ordered By: Anooppierce Blackmon on 09-08-2024 Hematocrit (Bld) [Volume fraction] 41.4 % 37-47 [facility] Hemoglobin measurementOrdere d By: Anoop Blackmon on 09-08-2024 Hemoglobin (Bld) [Mass/Vol] 13.8 g/dL 12.0-15.0 [facility] Immature granulocytes/100 WB C Auto (Bld)Ordered By: Anoop Blackmon on 09-08-2024 Immature granulocytes/100 WBC (Bld) 0.400 % 0.0-0.9 [facility] Comment on above: IG% - Immature Granu locytes (promyelocytes, myelocytes and metamyelocytes) > 1% indicates that a LEFT SHIFT is Present. International normalized rat io (INR) calculationOrdered By: Anooppierce Blackmon on 09-08-2024 INR Coag (Bld) [Relative time] 2.9 {INR} [facility] MCV (mean corpuscular volume ) determinationOrdered By: Anoop Blackmon on 09-08-2024 MCV (RBC) [Entitic vol] 94.1 fL 81-99 [facility] Mean corpuscular hemoglobin (MCH) determinationOrdered By: Anooppierce Blackmon on 09-08-2024 MCH (RBC) [Entitic mass] 31.4 pg 27.0-32.0 [facility] Mean corpuscular hemoglobin concentration (MCHC) determinationOrdered By: Anooppierce Blackmon on 09-08-2024 MCHC (RBC) [Mass/Vol] 33.3 g/dL 32-36 [facility] Mean platelet volume determi nationOrdered By: Anooppierce Blackmon on 09-08-2024 Platelet mean volume (Bld) [Entitic vol] 10.8 fL 6.2-12.0 [facility] Monocyte percentageOrdered B y: Anoop Blackmon on 09-08-2024 Monocytes/100 WBC (Bld) 6.6 % 0-10 [facility] Neutrophil percentageOrdered By: Anooppierce Blackmon on 09-08-2024 Neutrophils/100 WBC (Bld) 75.9 % High 47-70 [facility] Nucleated red blood cell per centageOrdered By: Anoop Blackmon on 09-08-2024 Nucleated RBC/100 WBC (Bld) [Ratio] 0 % 0-5 [facility] Platelet countOrdered By: Monserrat Blackmon on 09-08-2024 Platelets (Bld) [#/Vol] 326 10*3/uL 150-450 [facility] Potassium measurement (mass/ volume)Ordered By: Anoop Blackmon on 09-08-2024 Potassium (Unsp spec) [Mass/Vol] 4.7 mmol/L 3.3-5.1 [facility] Prothrombin Time w/INRon INR Coag (PPP) [Relative time] 2.9 {INR} Normal [facility] Comment on above: Performed By: #### L 100.0100, L500.2500, L300.3900, L3300.4400 ####[facility] [id number] [place], [place], [id number]) PT Coag (PPP) [Time] 30.7 s High 11.7-14.9 [facility] Comment on above: Performed By: #### L 100.0100, L500.2500, L300.3900, L3300.4400 ####[facility] [address] [place], [address] Prothrombin timeOrdered By: Anoop Blackmon on 09-08-2024 PT Coag (PPP) [Time] 30.7 s High 11.7-14.9 [facility] RBC Auto (Bld) [#/Vol]Ordere d By: Anoop Blackmon on 09-08-2024 RBC (Bld) [#/Vol] 4.40 10*6/uL 4.2-5.4 [facility] Serum creatinine measurement (mass/volume)Ordered By: Anoop Blackmon on 09-08-2024 Creatinine [Mass/Vol] 1.00 mg/dL 0.70-1.20 [facility] Serum glucose measurement (m ass/volume)Ordered By: Anoop Blackmon on 09-08-2024 Glucose [Mass/Vol] 149 mg/dL High 70-99 [facility] Serum or plasma calcium viktoria urement (mass/volume)Ordered By: Anoop Blackmon on 09-08-2024 Calcium [Mass/Vol] 8.9 mg/dL 7.6-11.0 [facility] Serum or plasma lamotrigine measurement (mass/volume)Ordered By: Anoop Blackmon on 09-08-2024 lamoTRIgine [Mass/Vol] 1.2 ug/mL Low 2.0-20.0 [facility] Comment on above: Detection Limit = 1. 0Performed at: [facility] [id number] Director: Brandon Wells MD, Phone: [phone] Serum or plasma urea nitroge n measurement (mass/volume)Ordered By: Anoop Blackmon on 09-08-2024 Urea nitrogen [Mass/Vol] 35 mg/dL High 4-19 [facility] Sodium levelOrdered By: Anooppierce Blackmon on 09-08-2024 Sodium [Moles/Vol] 138 mmol/L 133-145 [facility] White blood cell (WBC) count Ordered By: Anooppierce Blackmon on 09-08-2024 WBC (Bld) [#/Vol] 13.6 10*3/uL High 4.4-11.0 [facility] normalized rat io (INR) calculationOrdered By: Cesar Douglas on 08-18-2024 INR Coag (Bld) [Relative time] 2.6 {INR} [facility] Prothrombin timeOrdered By: Cesar Douglas on 08-18-2024 PT Coag (PPP) [Time] 28.1 s High 11.7-14.9 [facility] normalized rat io (INR) calculationOrdered By: Newcomb Douglas on 07-19-2024 INR Coag (Bld) [Relative time] 2.2 {INR} [facility] Prothrombin timeOrdered By: Newcomb Douglas on 07-19-2024 PT Coag (PPP) [Time] 25.3 s High 11.7-14.9 [facility] Cardiology Visit Reporton Cardiology Visit Report [facility] [address] [place] [address] OFFICE VISIT Date of Service: 07/01/24 MR#: [id number] Acct: [id number] Name: EZRA GONZALEZ Rep #: [id number] : 1935 Provider: Dr. Cesar Cole MD Age/Sex: 89/F Location: [facility] Status: Signed HPI HPI History of Present [...] atrial fibrillation. She is a reside at [facility]. 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 Normal [facility] normalized rat io (INR) calculationOrdered By: Chucky Ochoa on 06-16-2024 INR Coag (Bld) [Relative time] 2.4 {INR} [facility] Prothrombin timeOrdered By: Chucky Ochoa on 06-16-2024 PT Coag (PPP) [Time] 26.6 s High 11.7-14.9 [facility] Absolute lymphocyte countOrd ered By: Chucky Ochoa on 06-09-2024 Lymphocytes Auto (Unsp spec) [#/Vol] 2.06 10*3/uL 0.83-4.51 [facility] Absolute neutrophil countOrd ered By: Chucky Ochoa on 06-09-2024 Neutrophils (Bld) [#/Vol] 5.6 10*3/uL 2.0-7.7 [facility] Anion gap in Serum or Plasma Ordered By: Chucky Ochoa on 06-09-2024 Anion gap [Moles/Vol] 13 mmol/L 5-15 [facility] Automated lymphocyte count a s percentage of total leukocytesOrdered By: Chucky Ochoa on 06-09-2024 Lymphocytes/100 WBC Auto (Unsp spec) 23.0 % - [facility] BUN/creatinine ratioOrdered By: Chucky Ochoa on 06-09-2024 Urea nitrogen/Creatinine [Mass ratio] 21.5 mg/mg High 10-20 [facility] Basophil percentageOrdered B y: Chucky Ochoa on 06-09-2024 Basophils/100 WBC (Bld) 0.6 % 0-1 [facility] Carbon dioxide, total [Moles /volume] in Central venous bloodOrdered By: Chucky Ochoa on 06-09-2024 CO2 [Moles/Vol] 22.4 mmol/L 21.0-32.0 [facility] Chloride assayOrdered By: Costa Ochoa on 06-09-2024 Chloride [Moles/Vol] 108 mmol/L 98-108 [facility] Eosinophil percentageOrdered By: Chucky Ochoa on 06-09-2024 Eosinophils/100 WBC (Bld) 4.8 % 0-5 [facility] Erythrocyte distribution wid th ratioOrdered By: Chucky Ochoa on 06-09-2024 Erythrocyte distribution width (RBC) [Ratio] 14.6 % 11.6-14.6 [facility] Erythrocyte distribution wid th standard deviationOrdered By: Chucky Ochoa on 06-09-2024 Erythrocyte distribution width (RBC) [Entitic vol] 49.2 fL High 35.1-43.9 [facility] Erythrocyte distribution width (RBC) [Ratio] 49.2 fl High 35.1-43.9 [facility] GFR/1.73 sq M.predicted sonia g non-blacks MDRD (S/P/Bld) [Vol rate/Area]Ordered By: Chucky Ochoa on 06-09-2024 Estimated GFR (MDRD) Non-Af Amer 59 Low >60 [facility] Comment on above: mL/min/1.73m2 CKD-EP I Creatinine Equation (2020) Glomerular filtration rate ( GFR) estimation/1.73 sq m using serum, plasma, or whole bOrdered By: hCucky Ochoa on 06-09-2024 GFR/1.73 sq M.predicted among non-blacks MDRD (S/P/Bld) [Vol rate/Area] 59 mL/min/{1.73_m2} Low >60 [facility] Comment on above: mL/min/1.73m2 CKD-EP I Creatinine Equation (2020) Hematocrit Auto (Bld) [Volum e fraction]Ordered By: Chucky Ochoa on 06-09-2024 Hematocrit (Bld) [Volume fraction] 38.3 % 37-47 [facility] Hemoglobin A1c percentageOrd ered By: Chucky Ochoa on 06-09-2024 HbA1c (Bld) [Mass fraction] 6.5 % >5.7 [facility] Hemoglobin measurementOrdere d By: Chucky Ochoa on 06-09-2024 Hemoglobin (Bld) [Mass/Vol] 12.4 g/dL 12.0-15.0 [facility] Immature granulocytes/100 WB C Auto (Bld)Ordered By: Chucky Ochoa on 06-09-2024 Immature granulocytes/100 WBC (Bld) 0.200 % 0.0-0.9 [facility] Comment on above: IG% - Immature Granu locytes (promyelocytes, myelocytes and metamyelocytes) > 1% indicates that a LEFT SHIFT is Present. Lymphocytes Auto (Unsp spec) [#/Vol]Ordered By: Chucky Ochoa on 06-09-2024 Lymphocytes (Bld) [#/Vol] 2.06 10*3/uL 0.83-4.5 1 [facility] Lymphocytes/100 WBC Auto (Un sp spec)Ordered By: Chucky Ochoa on 06-09-2024 Lymphocytes/100 WBC (Bld) 23.0 % 19-41 [facility] MCV (mean corpuscular volume ) determinationOrdered By: Chucky Ochoa on 06-09-2024 MCV (RBC) [Entitic vol] 91.8 fL 81-99 [facility] Mean corpuscular hemoglobin (MCH) determinationOrdered By: Chucky Ochoa on 06-09-2024 MCH (RBC) [Entitic mass] 29.7 pg 27.0-32.0 [facility] Mean corpuscular hemoglobin concentration (MCHC) determinationOrdered By: Chucky Ochoa on 06-09-2024 MCHC (RBC) [Mass/Vol] 32.4 g/dL 32-36 [facility] Mean platelet volume determi nationOrdered By: Chucky Ochoa on 06-09-2024 Platelet mean volume (Bld) [Entitic vol] 10.2 fL 6.2-12.0 [facility] Monocyte percentageOrdered B y: Chucky Ochoa on 06-09-2024 Monocytes/100 WBC (Bld) 8.6 % 0-10 [facility] Neutrophil percentageOrdered By: Chucky Ochoa on 06-09-2024 Neutrophils/100 WBC (Bld) 62.8 % 47-70 [facility] Nucleated red blood cell per centageOrdered By: Chucky Ochoa on 06-09-2024 Nucleated RBC/100 WBC (Bld) [Ratio] 0 % 0-5 [facility] Platelet countOrdered By: Costa Ochoa on 06-09-2024 Platelets (Bld) [#/Vol] 323 10*3/uL 150-450 [facility] Potassium (Unsp spec) [Mass/ Vol]Ordered By: Chucky Ochoa on 06-09-2024 Potassium [Moles/Vol] 4.7 mmol/L 3.3-5.1 [facility] Potassium measurement (mass/ volume)Ordered By: Chucky Ochoa on 06-09-2024 Potassium (Unsp spec) [Mass/Vol] 4.7 mmol/L 3.3-5.1 [facility] RBC Auto (Bld) [#/Vol]Ordere d By: Chucky Ochoa on 06-09-2024 RBC (Bld) [#/Vol] 4.17 10*6/uL Low 4.2-5.4 [facility] Serum creatinine measurement (mass/volume)Ordered By: Chucky Ochoa on 06-09-2024 Creatinine [Mass/Vol] 0.94 mg/dL 0.70-1.20 [facility] Serum glucose measurement (m ass/volume)Ordered By: Chucky Ochoa on 06-09-2024 Glucose [Mass/Vol] 137 mg/dL High 70-99 [facility] Serum or plasma calcium viktoria urement (mass/volume)Ordered By: Chucky Ochoa on 06-09-2024 Calcium [Mass/Vol] 8.9 mg/dL 7.6-11.0 [facility] Serum or plasma urea nitroge n measurement (mass/volume)Ordered By: Chucky Ochoa on 06-09-2024 Urea nitrogen [Mass/Vol] 20 mg/dL High 4-19 [facility] Sodium levelOrdered By: Dru Ochoa on 06-09-2024 Sodium [Moles/Vol] 143 mmol/L 133-145 [facility] White blood cell (WBC) count Ordered By: Chucky Ochoa on 06-09-2024 WBC (Bld) [#/Vol] 9.0 10*3/uL 4.4-11.0 [facility] INR Coag (BldC) [Relative ti me]Ordered By: Cesar Cole on 05-19-2024 INR Coag (Bld) [Relative time] 2.9 {INR} [facility] Comment on above: Critical Value > 4.0 International normalized rat io (INR) measurement by fingerstickOrdered By: Cesar Cole on 05-19-2024 INR Coag (BldC) [Relative time] 2.9 [facility] Comment on above: Critical Value > 4.0 PT Coag (Bld) [Time]Ordered By: Cesar Cole on 05-19-2024 Bedside Prothrombin Time 30.4 SEC High 11.7-14.9 [facility] Whole blood prothrombin time Ordered By: Cesar Cole on 05-19-2024 PT Coag (Bld) [Time] 30.4 s High 11.7-14.9 [facility] Serum or plasma lamotrigine measurement (mass/volume)Ordered By: Anant Juarez on 05-12-2024 lamoTRIgine [Mass/Vol] 1.8 ug/mL Low 2.0-20.0 [facility] Comment on above: Detection Limit = 1. 0Performed at: [facility] [id number] Director: Brandon Wells MD, Phone: [phone] Venous blood ammonia measure mentOrdered By: Anant Juarez on 05-12-2024 Ammonia (P) [Moles/Vol] 17.0 umol/L 11-32 [facility] lamoTRIgine [Mass/Vol]Ordere d By: Anant Juarez on 05-12-2024 Lamotrigine (Lamictal) Level 1.8 ug/mL Low 2.0-20.0 [facility] Comment on above: Detection Limit = 1. 0Performed at: [facility] [id number] Director: Brandon Wells MD, Phone: [phone] Neurology Visit Reporton Neurology Visit Report [facility] [address], [address] [place] [address] OFFICE VISIT Date of Service: 05/10/24 MR#: [id number] Acct: [id number] Name: EZRA GONZALEZ Rep #: [id number] : 1935 Provider: Dr. Anant baez MD Age/Sex: 88/F Location: [facility] [place] 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 She has become lost while [...] nature. Th (more content not included)... Normal [facility] INR Coag (BldC) [Relative ti me]Ordered By: Cesar Cole on 05-05-2024 INR Coag (Bld) [Relative time] 2.5 {INR} [facility] Comment on above: Critical Value > 4.0 PT Coag (Bld) [Time]Ordered By: Cesar Cole on 05-05-2024 Bedside Prothrombin Time 26.9 SEC High 11.7-14.9 [facility] International normalized rat io (INR) calculationOrdered By: Chucky Ochoa on 04-28-2024 INR Coag (Bld) [Relative time] 3.4 {INR} [facility] Prothrombin timeOrdered By: Chucky Ochoa on 04-28-2024 PT Coag (PPP) [Time] 35.4 s High 11.7-14.9 [facility] International normalized rat io (INR) calculationOrdered By: Chucky Ochoa on 04-14-2024 INR Coag (Bld) [Relative time] 3.0 {INR} [facility] Prothrombin timeOrdered By: Chucky Ochoa on 04-14-2024 PT Coag (PPP) [Time] 31.4 s High 11.7-14.9 [facility] Blood urea nitrogen (BUN)/cr eatinine ratioOrdered By: Chucky Ochoa on 04-09-2024 Urea nitrogen/Creatinine [Mass ratio] 13.5 mg/mg 10-20 [facility] Carbon dioxide measurementOr dered By: Chucky Ochoa on 04-09-2024 CO2 [Moles/Vol] 28.0 mmol/L 21.0-32.0 [facility] Chloride measurementOrdered By: Chucky Ochoa on 04-09-2024 Chloride [Moles/Vol] 106 mmol/L 98-107 [facility] Estimated glomerular filtrat ion rate (GFR) AmericanOrdered By: Chucky Ochoa on 04-09-2024 Estimated GFR (MDRD) Amer 70 mL/min >60 [facility] Comment on above: GFR Calc Glomerular filtration rate ( GFR) estimationOrdered By: Chucky Ochoa on 04-09-2024 Estimated GFR (MDRD) Non-Af Amer 58 mL/min Low >60 [facility] Comment on above: Non- GFR Calc Glucose measurementOrdered B y: Chucky Ochoa on 04-09-2024 Glucose [Mass/Vol] 116 mg/dL High 74-106 [facility] Comment on above: Fasting Glucose resu lt from 100 to 125 mg/dL suggests IMPAIRED HOMEOSTASIS per A.D.A. criteria. Potassium measurementOrdered By: Chucky Ochoa on 04-09-2024 Potassium [Moles/Vol] 4.3 mmol/L 3.5-5.1 [facility] Serum anion gap measurementO rdered By: Chucky Ochoa on 04-09-2024 Anion gap [Moles/Vol] 3 mmol/L Low 5-15 [facility] Serum or plasma calcium viktoria urement (mass/volume)Ordered By: Chucky Ochoa on 04-09-2024 Calcium [Mass/Vol] 8.8 mg/dL 8.5-10.1 [facility] Serum or plasma creatinine m easurement (mass/volume)Ordered By: Chucky Ochoa on 04-09-2024 Creatinine [Mass/Vol] 0.96 mg/dL 0.55-1.02 [facility] Comment on above: The validity of the calculated GFR & GFRAA in patients over 70 years has not been determined. Clinical correlation is essential. Serum or plasma urea nitroge n measurement (mass/volume)Ordered By: Chucky Ochoa on 04-09-2024 Urea nitrogen [Mass/Vol] 13 mg/dL 7-18 [facility] Sodium levelOrdered By: Dru Ochoa on 04-09-2024 Sodium [Moles/Vol] 137 mmol/L 136-145 [facility] International normalized rat io (INR) calculationOrdered By: Chucky Ochoa on 04-06-2024 INR Coag (Bld) [Relative time] 2.6 {INR} [facility] Prothrombin timeOrdered By: Chucky Ochoa on 04-06-2024 PT Coag (PPP) [Time] 28.8 s High 11.7-14.9 [facility] INR Coag (BldC) [Relative ti me]Ordered By: Chucky Ochoa on 04-05-2024 INR Coag (Bld) [Relative time] 3.5 {INR} [facility] Comment on above: Critical Value > 4.0 PT Coag (Bld) [Time]Ordered By: Chucky Ochoa on 04-05-2024 Bedside Prothrombin Time 35.4 SEC High 11.7-14.9 [facility] International normalized rat io (INR) calculationOrdered By: Chucky Ochoa on 03-29-2024 INR Coag (Bld) [Relative time] 1.5 {INR} [facility] Prothrombin timeOrdered By: Chucky Ochoa on 03-29-2024 PT Coag (PPP) [Time] 17.9 s High 11.7-14.9 [facility] INR Coag (BldC) [Relative ti me]Ordered By: Chucky Ochoa on 03-26-2024 INR Coag (Bld) [Relative time] 3.4 {INR} [facility] Comment on above: Critical Value > 4.0 PT Coag (Bld) [Time]Ordered By: Chucky Ochoa on 03-26-2024 Bedside Prothrombin Time 34.4 SEC High 11.7-14.9 [facility] INR Coag (BldC) [Relative ti me]Ordered By: Chucky Ochoa on 03-25-2024 INR Coag (Bld) [Relative time] 3.8 {INR} [facility] Comment on above: Critical Value > 4.0 PT Coag (Bld) [Time]Ordered By: Chucky Ochoa on 03-25-2024 Bedside Prothrombin Time 37.8 SEC High 11.7-14.9 [facility] International normalized rat io (INR) calculationOrdered By: Chucky Ochoa on 03-19-2024 INR Coag (Bld) [Relative time] 3.0 {INR} [facility] Prothrombin timeOrdered By: Chucky Ochoa on 03-19-2024 PT Coag (PPP) [Time] 30.7 s High 11.7-14.9 [facility] INR Coag (BldC) [Relative ti me]Ordered By: Chucky Ochoa on 03-17-2024 INR Coag (Bld) [Relative time] 3.3 {INR} [facility] Comment on above: Critical Value > 4.0 PT Coag (Bld) [Time]Ordered By: Chucky Ochoa on 03-17-2024 Bedside Prothrombin Time 34.2 SEC High 11.7-14.9 [facility] INR Coag (BldC) [Relative ti me]Ordered By: Chucky Ochoa on 03-10-2024 INR Coag (Bld) [Relative time] 2.4 {INR} [facility] Comment on above: Critical Value > 4.0 PT Coag (Bld) [Time]Ordered By: Chucky Ochoa on 03-10-2024 Bedside Prothrombin Time 25.4 SEC High 11.7-14.9 [facility] International normalized rat io (INR) calculationOrdered By: Chucky Ochoa on 03-08-2024 INR Coag (Bld) [Relative time] 1.8 {INR} [facility] Prothrombin timeOrdered By: Chucky Ochoa on 03-08-2024 PT Coag (PPP) [Time] 21.1 s High 11.7-14.9 [facility] INR Coag (BldC) [Relative ti me]Ordered By: Chucky Ochoa on 03-04-2024 INR Coag (Bld) [Relative time] 1.8 {INR} [facility] Comment on above: Critical Value > 4.0 PT Coag (Bld) [Time]Ordered By: Chucky Ochoa on 03-04-2024 Bedside Prothrombin Time 20.2 SEC High 11.7-14.9 [facility] INR Coag (BldC) [Relative ti me]Ordered By: Chucky Ochoa on 02-05-2024 INR Coag (Bld) [Relative time] 2.2 {INR} [facility] Comment on above: Critical Value > 4.0 PT Coag (Bld) [Time]Ordered By: Chucky Ochoa on 02-05-2024 Bedside Prothrombin Time 22.8 SEC High 11.7-14.9 [facility] Lamotrigine (Lamictal) Level on 09-25-2023 LAMOTRIGINE 4.0 ug/mL Normal 2.0-20.0 [facility] Comment on above: Result Comment: Dete ction Limit = 1.0 Performed at: [facility] [address] [id number] Clinical Laboratory Manager: Brandon Wells MD, Phone: [phone] Performed By: #### L 3300.4400, L500.4050, L503.5510, L100.0500 #### [facility] [address] [place], [address] Ammoniaon 09-22-2023 Ammonia (P) [Moles/Vol] 13.0 umol/L Normal 11-32 [facility] Comment on above: Performed By: #### L 3300.4400, L500.4050, L503.5510, L100.0500 #### [facility] [address] [place], [address] CBC-Complete Blood Cnt No Di ffon 09-22-2023 Erythrocyte distribution width (RBC) [Ratio] 14.4 % Normal 11.6-14.6 [facility] Comment on above: Performed By: #### L 3300.4400, L500.4050, L503.5510, L100.0500 #### [facility] [address] [place], [address] Hematocrit (Bld) [Volume fraction] 41.1 % Normal 37-47 [facility] Comment on above: Performed By: #### L 3300.4400, L500.4050, L503.5510, L100.0500 #### [facility] [address] [place], [address] Hemoglobin (Bld) [Mass/Vol] 12.9 g/dL Normal 12.0-15.0 [facility] Comment on above: Performed By: #### L 3300.4400, L500.4050, L503.5510, L100.0500 #### [facility] [address] [place], [address] MCH (RBC) [Entitic mass] 28.3 pg Normal 27.0-32.0 [facility] Comment on above: Performed By: #### L 3300.4400, L500.4050, L503.5510, L100.0500 #### [facility] [address] [place], [address] MCHC (RBC) [Mass/Vol] 31.4 g/dL Low 32-36 [facility] Comment on above: Performed By: #### L 3300.4400, L500.4050, L503.5510, L100.0500 #### [facility] [address] [place], [address] MCV (RBC) [Entitic vol] 90.1 fL Normal 81-99 [facility] Comment on above: Performed By: #### L 3300.4400, L500.4050, L503.5510, L100.0500 #### [facility] [address] [place], [address] Platelet mean volume (Bld) [Entitic vol] 10.9 fL Normal 6.2-12.0 [facility] Comment on above: Performed By: #### L 3300.4400, L500.4050, L503.5510, L100.0500 #### [facility] [address] [place], [address] Platelets (Bld) [#/Vol] 402 10*3/uL Normal 150-450 [facility] Comment on above: Performed By: #### L 3300.4400, L500.4050, L503.5510, L100.0500 #### [facility] [address] [place], [address] RBC (Bld) [#/Vol] 4.56 10*6/uL Normal 4.2-5.4 [facility] Comment on above: Performed By: #### L 3300.4400, L500.4050, L503.5510, L100.0500 #### [facility] [address] [place], [address] RDW SD 47.4 fl High 35.1-43.9 [facility] Comment on above: Performed By: #### L 3300.4400, L500.4050, L503.5510, L100.0500 #### [facility] [address] [place], [address] WBC (Bld) [#/Vol] 8.5 10*3/uL Normal 4.4-11.0 [facility] Comment on above: Performed By: #### L 3300.4400, L500.4050, L503.5510, L100.0500 #### [facility] [address] [place], [address] Comprehensive Metabolic Prof nvon 09-22-2023 Albumin [Mass/Vol] 3.5 g/dL Normal 3.2-5.0 [facility] Comment on above: Performed By: #### L 3300.4400, L500.4050, L503.5510, L100.0500 #### [facility] [address] [place], [address] Albumin/Globulin [Mass ratio] 1.0 {ratio} Normal 0.9-2.4 [facility] Comment on above: Performed By: #### L 3300.4400, L500.4050, L503.5510, L100.0500 #### [facility] [address] [place], [address] ALK P 105 U/L Normal 45-117 [facility] Comment on above: Performed By: #### L 3300.4400, L500.4050, L503.5510, L100.0500 #### [facility] [address] [place], [address] ALT [Catalytic activity/Vol] 14 U/L Normal 13-56 [facility] Comment on above: Performed By: #### L 3300.4400, L500.4050, L503.5510, L100.0500 #### [facility] [facility] [address] [place], [address] AST [Catalytic activity/Vol] 20 U/L Normal 15-37 [facility] Comment on above: Performed By: #### L 3300.4400, L500.4050, L503.5510, L100.0500 #### [facility] [address] [place], [address] Bilirubin [Mass/Vol] 0.30 mg/dL Normal 0.20-1.00 [facility] Comment on above: Result Comment: For patients on eltrombopag therapy, use of Dimension Kimball TBIL is not recommended. Performed By: #### L 3300.4400, L500.4050, L503.5510, L100.0500 #### [facility] [address] [place], [address] BUN/CRE 14.9 RATIO Normal 10-20 [facility] Comment on above: Performed By: #### L 3300.4400, L500.4050, L503.5510, L100.0500 #### [facility] [address] [place], [address] CA,Total 9.2 mg/dL Normal 8.5-10.1 [facility] Comment on above: Performed By: #### L 3300.4400, L500.4050, L503.5510, L100.0500 #### [facility] [address] [place], [address] Chloride [Moles/Vol] 106 mmol/L Normal 98-107 [facility] Comment on above: Performed By: #### L 3300.4400, L500.4050, L503.5510, L100.0500 #### [facility] [address] [place], [address] CO2 [Moles/Vol] 29.0 mmol/L Normal 21.0-32.0 [facility] Comment on above: Performed By: #### L 3300.4400, L500.4050, L503.5510, L100.0500 #### [facility] [address] [place], [address] Creatinine [Mass/Vol] 1.21 mg/dL High 0.55-1.02 [facility] Comment on above: Result Comment: The validity of the calculated GFR GFRAA in patients over 70 years has not been determined. Clinical correlation is essential. Performed By: #### L 3300.4400, L500.4050, L503.5510, L100.0500 #### [facility] [address] [place], [address] EST GFR - AA 54 mL/min Low >60 [facility] Comment on above: Result Comment: Afri can [place] Citizen GFR Calc Performed By: #### L 3300.4400, L500.4050, L503.5510, L100.0500 #### [facility] [address] [place], [address] GAP 4 Low 5-15 [facility] Comment on above: Performed By: #### L 3300.4400, L500.4050, L503.5510, L100.0500 #### [facility] [address] [place], [address] GFR/1.73 sq M.predicted among non-blacks MDRD (S/P/Bld) [Vol rate/Area] 45 mL/min/{1.73_m2} Low >60 [facility] Comment on above: Result Comment: Non- GFR Calc Performed By: #### L 3300.4400, L500.4050, L503.5510, L100.0500 #### [facility] [address] [place], [address] Globulin (S) [Mass/Vol] 3.6 g/dL Normal 2.2-4.2 [facility] Comment on above: Performed By: #### L 3300.4400, L500.4050, L503.5510, L100.0500 #### [facility] [address] [place], [address] Glucose [Mass/Vol] 123 mg/dL High 74-106 [facility] Comment on above: Result Comment: Fast ing Glucose result from 100 to 125 mg/dL suggests IMPAIRED HOMEOSTASIS per A.D.A. criteria. Performed By: #### L 3300.4400, L500.4050, L503.5510, L100.0500 #### [facility] [address] [place], [address] Potassium [Moles/Vol] 5.5 mmol/L High 3.5-5.1 [facility] Comment on above: Performed By: #### L 3300.4400, L500.4050, L503.5510, L100.0500 #### [facility] [address] [place], [address] Sodium [Moles/Vol] 139 mmol/L Normal 136-145 [facility] Comment on above: Performed By: #### L 3300.4400, L500.4050, L503.5510, L100.0500 #### [facility] [address] [place], [address] T PROT 7.1 g/dL Normal 6.4-8.2 [facility] Comment on above: Performed By: #### L 3300.4400, L500.4050, L503.5510, L100.0500 #### [facility] [address] [place], [address] Urea nitrogen [Mass/Vol] 18 mg/dL Normal 7-18 [facility] Comment on above: Performed By: #### L 3300.4400, L500.4050, L503.5510, L100.0500 #### [facility] [address] [place], [place], [address] Neurology Visit Reporton Neurology Visit Report [facility] [address] [place], [place] [address] OFFICE VISIT Date of Service: 09/22/23 MR#: [id number] Acct: [id number] Name: EZRA GONZALEZ Rep #: [id number] : 1935 Provider: Dr. 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 She has become lost while [...] be positi (more content not included)... Normal [facility] Capillary blood internationa l normalized ratio (INR)Ordered By: Alexandra Hagen on 06-30-2023 INR Coag (BldC) [Relative time] 2.4 [facility] Comment on above: Critical Value > 4.0 Whole blood prothrombin time Ordered By: Alexandra Hagen on 06-30-2023 PT Coag (Bld) [Time] 24.6 s 11.7-14.9 [facility] CARECOORDon 2023 [facility] Patient Choice Patient Name: EZRA GONZALEZ Date [facility] : 1935 [facility] Site of Care Admission Date: 06/16/2023 01:38 PM Patient Name: EZRA GONZALEZ Location: [address] Date of : 1935 ------- Placement Information ------- Referral Type:Home Health Care Services - New Referral ID:[id number] Provider Name:[facility] Address 1:[address] [place] [address] Address 2: City:[place] Selection Factors:Patient/Famil y Choice State:[place] Normal [facility] updated SW, pt i s requesting [...] agreement with the mode of transportation, explained provided pt insurance to [facility] and there pay be a separate bill. Pt had no questions for SW. Helped pt order lunch. Notified TONIO, RN and community engagement specialist. . [facility] I SPOKE WITH DONOVAN, GUEST SERVICES ATTENDANT AT [facility]. THEY CAN TAKE PT BACK TODAY. THEY CAN PROVIDE TRANSPORTATION BACK TO FACILITY AROUND 3 PM. AWARE PT WILL NEED PT AT FACILITY, THEY USE [facility], DID LET LIAISON NOW. WENT TO [...] CHAT WITH CONNIE PEREZ REGARDING THIS. Normal [facility] - Chemistry and C hemistry - challengeon 06-20-2023 Glucose [Mass/Vol] 125 mg/dL High 70 - 100 mg/dL [facility] - Coagulationon 0 06-20-2023 PT Coag (Bld) [Time] 11.3 s 9.0 - 12.0 s [facility] No Panel Informationon 06-19 Interpretation and review of laboratory results Abnormal [facility] Performed by: [facility], [address] [place] [address] CLIA ID: [id number] [facility] Radiology Study observation (narrative) [facility] chalo PROTHROMBIN TIMEon INR Coag (PPP) [Relative time] 1.1 {INR} Normal 0.9-1.1 [facility] Comment on above: Result Comment: Reji [...] Myocardial Infarction Performed By: #### L [id number] ####Language Assistant: ALEXANDRA BUSTAMANTE ([id number])[facility] ([facility])[address] [place] [address] PT Coag (PPP) [Time] 11.3 s Normal 9.0-12.0 [facility] Comment on above: Performed By: #### L AB320 ####Language Assistant: ALEXANDRA BUSTAMANTE ([phone])[facility] ([facility])[address] [place] [address] PT Coag (Bld) [Time]on 06-19 INR Coag (PPP) [Relative time] 1.1 {INR} 0.9 - 1.1 [facility] Comment on above: Recommended Anticoag ulant Therapy: [...] Infarction Interpretation and review of laboratory results [facility] Progress Noteon 06-20-2023 Progress Note Dc via CRISTINA cot to Josep MCARTHUR with all [facility] Progress Note Called report to Maryanne at [facility] Progress Note [facility] Anticoagulatio n Management Service (RIA) Inpatient Warfarin Consult HPI: Ezra Gonzalez is a 87 y.o. female admitted on 06/16/2023 for Closed displaced fracture of medial condyle of right humerus, initial encounter [S42.288I] History reviewed. No pertinent past medical history. [...] patient can be classified as high risk ([id number] = 8). 2. Monitor for s/s of bleeding and drug interactions. Will adjust dose accordingly 3. RIA will manage while inpatient Dc Lombardi, JpD Candidate Jp BolanosD, [facility] RIA is available daily [phone] via [employer]. If no response on [employer] Chat then please page [phone]. Normal [facility] BASIC METABOLIC PANELon 03-2 Anion gap [Moles/Vol] 11 mmol/L Normal 3-13 [facility] Comment on above: Performed By: #### L AB15 ####Language Assistant: ALEXANDRA BUSTAMANTE ([id number])[facility] ([facility])[address] [place] [address] Calcium [Mass/Vol] 8.3 mg/dL Low 8.4-10.4 [facility] Comment on above: Performed By: #### L AB15 ####Language Assistant: ALEXANDRA BUSTAMANTE ([phone])[facility] ([facility])[address] [place] [address] Chloride [Moles/Vol] 102 mmol/L Normal 98-107 [facility] Comment on above: Performed By: #### L AB15 ####Language Assistant: ALEXANDRA BUSTAMANTE ([phone])[facility] ([facility])[address] [place] [address] CO2 [Moles/Vol] 21 mmol/L Low 22-30 [facility] Comment on above: Performed By: #### L AB15 ####Language Assistant: ALEXANDRA BUSTAMANTE ([phone])[facility] ([facility])[address] [place] [address] Creatinine [Mass/Vol] 0.84 mg/dL Normal 0.52-1.04 [facility] Comment on above: Performed By: #### L AB15 ####Language Assistant: ALEXANDRA BUSTAMANTE ([phone])[facility])[address] [place] [address] GLOMERULAR FILTRATION RATE ML/MIN/1.73 SQ M.PREDICTED 67.4 mL/min/1.73m*2 Normal >60.0 [facility] Comment on above: Result Comment: Calc ulation based on the Chronic Kidney Disease Epidemiology Collaboration (CKD-EPI) equation refit without adjustment for race Performed By: #### L AB15 ####Language Assistant: ALEXANDRA BUSTAMANTE ([phone])[facility] ([facility])[address] [place] [address] Glucose [Mass/Vol] 263 mg/dL High 70-100 [facility] Comment on above: Performed By: #### L AB15 ####Language Assistant: ALEXANDRA BUSTAMANTE ([phone])[facility] ([facility])[address] [place] [address] Potassium [Moles/Vol] 4.7 mmol/L Normal 3.5-5.1 [facility] Comment on above: Performed By: #### L AB15 ####Language Assistant: ALEXANDRA BUSTAMANTE ([phone])[facility] ([facility])[address] [place] [address] Sodium [Moles/Vol] 133 mmol/L Low 135-145 [facility] Comment on above: Performed By: #### L AB15 ####Language Assistant: ALEXANDRA BUSTAMANTE ([phone])[facility] ([facility])[address] [place] [address] Urea nitrogen [Mass/Vol] 27 mg/dL High 7-17 [facility] Comment on above: Performed By: #### L AB15 ####Language Assistant: ALEXANDRA BUSTAMANTE ([phone])[facility] ([facility])[address] [place] [address] Basic metabolic 1998 panelon 06-19-2023 Anion gap [Moles/Vol] 11 mmol/L 3 - 13 mmol/L [facility] Calcium [Mass/Vol] 8.3 mg/dL Low 8.4 - 10. 4 mg/dL [facility] Chloride [Moles/Vol] 102 mmol/L 98 - 10 7 mmol/L [facility] CO2 [Moles/Vol] 21 mmol/L Low 22 - 30 mmol/L [facility] Creatinine [Mass/Vol] 0.84 mg/dL 0.52 - 1.04 mg/dL [facility] GFR/1.73 sq M.predicted MDRD (S/P/Bld) [Vol rate/Area] 67.4 mL/min/{1.73_m2} - PINF [facility] Comment on above: Calculation based on the Chronic Kidney Disease Epidemiology Collaboration (CKD-EPI) equation refit without adjustment for race Glucose [Mass/Vol] 263 mg/dL High 70 - 100 mg/dL [facility] Interpretation and review of laboratory results Abnormal [facility] Potassium [Moles/Vol] 4.7 mmol/L 3.5 - 5.1 mmol/L [facility] Sodium [Moles/Vol] 133 mmol/L Low 135 - 145 mmol/L [facility] Urea nitrogen [Mass/Vol] 27 mg/dL High 7 - 17 mg/d L [facility] CARECOORDon 06-19-[address] [facility] S/P ORIF OF RIGHT ARM. WAITING FOR PT/OT EVALS FOR DC PLANNING. Normal [facility] CBC W Auto Differential pane l (Bld)Ordered By: Leona Thakur on 06-19-2023 Basophils (Bld) [#/Vol] 0.0 10*3/uL 0.0 - 0.2 10*3/uL [facility] Basophils/100 WBC (Bld) 0.2 % 0.0 - 2.0 % [facility] Eosinophils (Bld) [#/Vol] 0.0 10*3/uL 0. 0 - 0.5 10*3/uL [facility] Eosinophils/100 WBC (Bld) 0.0 % 0.0 - 6.0 % [facility] Erythrocyte distribution width (RBC) [Ratio] 13.6 % 11.5 - 15.0 % [facility] Hematocrit (Bld) [Volume fraction] 35.0 % 35.0 - 47.0 % [facility] Hemoglobin (Bld) [Mass/Vol] 11.4 g/dL Low 11.7 - 16.0 g/dL [facility] Immature granulocytes (Bld) [#/Vol] 0.1 10*3/uL High NINF - 0.1 10*3/uL [facility] Immature granulocytes/100 WBC (Bld) 0.6 % 0.0 - 2.0 % [facility] Interpretation and review of laboratory results Abnormal [facility] th Lymphocytes (Bld) [#/Vol] 0.8 10*3/uL Low 1. 0 - 4.3 10*3/uL [facility] Lymphocytes/100 WBC (Bld) 6.4 % Low 15 .0 - 45.0 % [facility] MCH (RBC) [Entitic mass] 28.6 pg 26. 0 - 34.0 pg [facility] MCHC (RBC) [Mass/Vol] 32.6 % 30.5 - 36.0 % [facility] MCV (RBC) [Entitic vol] 87.9 fL 77.0 - 99.0 fL [facility] Monocytes (Bld) [#/Vol] 0.6 10*3/uL 0.0 - 0.9 10*3/uL [facility] Monocytes/100 WBC (Bld) 4.6 % Low 5.0 - 13.0 % [facility] Neutrophils (Bld) [#/Vol] 11.2 10*3/uL High 1. 8 - 7.5 10*3/uL [facility] Neutrophils/100 WBC (Bld) 88.2 % High 38 .0 - 82.0 % [facility] Nucleated RBC/100 WBC (Bld) [Ratio] 0.0 % [facility] Platelet mean volume (Bld) [Entitic vol] 10.2 fL 9.0 - 12.7 fL [facility] Platelets (Bld) [#/Vol] 260 10*3/uL 140 - 440 10*3/uL [facility] RBC (Bld) [#/Vol] 3.98 10*6/uL 3.80 - 5.2 0 10*6/uL [facility] WBC (Bld) [#/Vol] 12.7 10*3/uL High 3.6 - 10.7 10*3/uL [facility] CBC WITH AUTO DIFFERENTIALon 06-19-2023 Basophils (Bld) [#/Vol] 0.0 10*3/uL Normal 0.0-0.2 [facility] Comment on above: Performed By: #### L [id number] ####Language Assistant: ALEXANDRA BUSTAMANTE ([phone])[facility] ([facility])[address] [place] [address] [place] Basophils/100 WBC (Bld) 0.2 % Normal 0.0-2.0 [facility] Comment on above: Performed By: #### L [id number] ####Language Assistant: ALEXANDRA BUSTAMANTE ([id number])[facility])[address] [place] [address] Eosinophils (Bld) [#/Vol] 0.0 10*3/uL Normal 0.0-0.5 [facility] Comment on above: Performed By: #### L [id number] ####Language Assistant: ALEXANDRA BUSTAMANTE ([phone])[facility])[address] [place] [address] Eosinophils/100 WBC (Bld) 0.0 % Normal 0.0-6.0 [facility] Comment on above: Performed By: #### L [id number] ####Language Assistant: ALEXANDRA BUSTAMANTE ([phone])[facility])[address] [place] [address] Erythrocyte distribution width (RBC) [Ratio] 13.6 % Normal 11.5-15.0 [facility] Comment on above: Performed By: #### L [id number] ####Language Assistant: ALEXANDRA BUSTAMANTE ([phone])[facility])[address] [place] [address] Hematocrit (Bld) [Volume fraction] 35.0 % Normal 35.0-47.0 [facility] Comment on above: Performed By: #### L [id number] ####Language Assistant: ALXEANDRA BUSTAMANTE ([phone])[facility])[address] [place] [address] Hemoglobin (Bld) [Mass/Vol] 11.4 g/dL Low 11.7-16.0 [facility] Comment on above: Performed By: #### L [id number] ####Language Assistant: ALEXANDRA BUSTAMANTE ([phone])[facility])[address] [place] [address] IMMATURE GRANS % 0.6 % Normal 0.0-2.0 [facility] Comment on above: Performed By: #### L [id number] ####Language Assistant: ALEXANDRA BUSTAMANTE ([phone])[facility])[address] [place] [address] IMMATURE GRANS ABSOLUTE 0.1 10*3/uL High <0.1 [facility] Comment on above: Performed By: #### L [id number] ####Language Assistant: ALEXANDRA BUSTAMANTE ([phone])[facility])[address] [place] [address] Lymphocytes (Bld) [#/Vol] 0.8 10*3/uL Low 1.0-4.3 [facility] Comment on above: Performed By: #### L [id number] ####Language Assistant: ALEXANDRA BUSTAMANTE ([phone])[address] Lymphocytes/100 WBC (Bld) 6.4 % Low 15.0-45.0 [facility] Comment on above: Performed By: #### L [id number] ####Language Assistant: ALEXANDRA BUSTAMANTE ([phone])[facility])[address] [place] [address] MCH (RBC) [Entitic mass] 28.6 pg Normal 26.0-34.0 [facility] Comment on above: Performed By: #### L [id number] ####Language Assistant: ALEXANDRA BUSTAMANTE ([phone])[address] MCHC 32.6 % Normal 30.5-36.0 [facility] Comment on above: Performed By: #### L [id number] ####Language Assistant: ALEXANDRA BUSTAMANTE ([phone])[address] MCV (RBC) [Entitic vol] 87.9 fL Normal 77.0-99.0 [facility] Comment on above: Performed By: #### L [id number] ####Language Assistant: ALEXANDRA BUSTAMANTE ([phone])[facility] ([facility])[address] [place] [address] [place] Monocytes (Bld) [#/Vol] 0.6 10*3/uL Normal 0.0-0.9 [facility] Comment on above: Performed By: #### L [id number] ####Language Assistant: ALEXANDRA BUSTAMANTE ([id number])[facility] ([facility])[address] [place] [address] [place] Monocytes/100 WBC (Bld) 4.6 % Low 5.0-13.0 [facility] Comment on above: Performed By: #### L [id number] ####Language Assistant: ALEXANDRA BUSTAMANTE ([phone])[facility] ([facility])[address] [place] [address] NEUTROPHILS ABSOLUTE 11.2 10*3/uL High 1.8-7.5 [facility] Comment on above: Performed By: #### L [id number] ####Language Assistant: ALEXANDRA BUSTAMANTE ([phone])[facility] ([facility])[address] [place] [address] [place] Neutrophils/100 WBC (Bld) 88.2 % High 38.0-82.0 [facility] Comment on above: Performed By: #### L [id number] ####Language Assistant: ALEXANDRA BUSTAMANTE ([id number])[facility] ([facility])[address] [place] [address] NRBC 0.0 /100 WBCs Normal 0.0-2.0 [facility] Comment on above: Performed By: #### L [id number] ####Language Assistant: ALEXANDRA BUSTAMANTE ([id number])[facility] ([facility])[address] [place] [address] [place] Platelet mean volume (Bld) [Entitic vol] 10.2 fL Normal 9.0-12.7 [facility] Comment on above: Performed By: #### L [id number] ####Language Assistant: ALEXANDRA BUSTAMANTE ([phone])[facility] ([facility])[address] [place] [address] [place] Platelets (Bld) [#/Vol] 260 10*3/uL Normal 140-440 [facility] Comment on above: Performed By: #### L [id number] ####Language Assistant: ALEXANDRA BUSTAMANTE ([id number])[facility] ([facility])[address] [place] [address] RBC (Bld) [#/Vol] 3.98 10*6/uL Normal 3.80-5.20 [facility] Comment on above: Performed By: #### L [id number] ####Language Assistant: ALEXANDRA BUSTAMANTE ([id number])[facility])[address] [place] [address] WBC (Bld) [#/Vol] 12.7 10*3/uL High 3.6-10.7 [facility] Comment on above: Performed By: #### L [id number] ####Language Assistant: ALEXANDRA BUSTAMANTE ([phone])[facility] ([facility])[address] [place] [address] Laboratory - Chemistry and C hemistry - challengeon 06-19-2023 Glucose [Mass/Vol] 220 mg/dL High 70 - 100 mg/dL [facility] Glucose [Mass/Vol] 137 mg/dL High 70 - 100 mg/dL [facility] Glucose [Mass/Vol] 141 mg/dL High 70 - 100 mg/dL [facility] Glucose [Mass/Vol] 177 mg/dL High 70 - 100 mg/dL [facility] Laboratory - Coagulationon 0 06-19-2023 PT Coag (Bld) [Time] 11.3 s 9.0 - 12.0 s [facility] No Panel Informationon 06-18 Interpretation and review of laboratory results [facility] th Performed by: [facility], [address] [place] [address] CLIA ID: [id number] [facility] Interpretation and review of laboratory results [facility] th Performed by: [facility], [address] [place] [address] CLIA ID: [id number] [facility] Interpretation and review of laboratory results [facility] Performed by: [facility], [address] [place] [address] CLIA ID: [id number] [facility] Interpretation and review of laboratory results Abnormal [facility] Performed by: [facility], [address] [place] [address] CLIA ID: [id number] [facility] Radiology Study observation (narrative) Trina isabel Radiology Study observation (narrative) [facility] (narrative) [facility] (narrative) [facility] PROTHROMBIN TIMEon INR Coag (PPP) [Relative time] 1.1 {INR} Normal 0.9-1.1 [facility] Comment on above: Result Comment: Reji [...] Myocardial Infarction Performed By: #### L [id number] ####Language Assistant: ALEXANDRA BUSTAMANTE ([phone])[facility] ([facility])[address] [place] [address] PT Coag (PPP) [Time] 11.3 s Normal 9.0-12.0 [facility] Comment on above: Performed By: #### L [id number] ####Language Assistant: ALEXANDRA BUSTAMANTE ([id number])[facility] ([facility])[address] [place] [address] [place] PT Coag (Bld) [Time]on 06-18 INR Coag (PPP) [Relative time] 1.1 {INR} 0.9 - 1.1 [facility] Comment on above: Recommended Anticoag ulant Therapy: [...] Interpretation and review of laboratory results Normal [facility] Progress Noteon 06-19-2023 Progress Note [facility] Anticoagulatio n Management Service (RIA) Inpatient Warfarin Consult HPI: Ezra Gonzalez is a 87 y.o. female admitted on 06/16/2023 for Closed displaced fracture of medial condyle of right humerus, initial encounter [S42.392D] History reviewed. No pertinent past medical history. [...] patient can be classified as high risk ([id number] = 8). 2. Monitor for s/s of bleeding and drug interactions. Will adjust dose accordingly 3. RIA will manage while inpatient Dc Lombardi, JpD Candidate Toshia Sanches, JpD, [facility] RIA is available daily [phone] via [employer]. If no response on [employer] then please page [phone]. Normal [facility] BASIC METABOLIC PANELon 05-30 Anion gap [Moles/Vol] 10 mmol/L Normal 3-13 [facility] Comment on above: Performed By: #### L AB15 ####Language Assistant: ALEXANDRA BUSTAMANTE ([phone])[facility] ([facility] Calcium [Mass/Vol] 8.8 mg/dL Normal 8.4-10.4 [facility] Comment on above: Performed By: #### L AB15 ####Language Assistant: ALEXANDRA BUSTAMANTE ([phone])[facility] ([facility])[address] [place] [address] Chloride [Moles/Vol] 98 mmol/L Normal 98-107 [facility] Comment on above: Performed By: #### L AB15 ####Language Assistant: ALEXANDRA BUSTAMANTE ([id number])[facility] ([facility])[address] [place] [address] CO2 [Moles/Vol] 25 mmol/L Normal 22-30 [facility] Comment on above: Performed By: #### L AB15 ####Language Assistant: ALEXANDRA BUSTAMANTE ([id number])[facility] ([facility])[address] [place] [address] Creatinine [Mass/Vol] 0.83 mg/dL Normal 0.52-1.04 [facility] Comment on above: Performed By: #### L AB15 ####Language Assistant: ALEXANDRA BUSTAMANTE ([phone])[facility] ([facility])[address] [place] [address] GLOMERULAR FILTRATION RATE ML/MIN/1.73 SQ M.PREDICTED 68.3 mL/min/1.73m*2 Normal >60.0 [facility] Comment on above: Result Comment: Calc ulation based on the Chronic Kidney Disease Epidemiology Collaboration (CKD-EPI) equation refit without adjustment for race Performed By: #### L AB15 ####Language Assistant: ALEXANDRA BUSTAMANTE ([phone])[facility] ([facility])[address] [place] [address] Glucose [Mass/Vol] 163 mg/dL Normal [facility] Comment on above: Performed By: #### L AB15 ####Language Assistant: ALEXANDRA BUSTAMANTE ([id number])[facility] ([facility])[address] [place] [address] Order Comment: If no t done within the last 3 mos Performed By: #### L AB90 ####Language Assistant: ALEXANDRA [id number])[facility] ([facility])[address] [place] [address] Potassium [Moles/Vol] 4.6 mmol/L Normal 3.5-5.1 [facility] Comment on above: Performed By: #### L AB15 ####Language Assistant: ALEXANDRA BUSTAMANTE ([phone])[facility] ([facility])[address] [place] [address] Sodium [Moles/Vol] 133 mmol/L Low 135-145 [facility] Comment on above: Performed By: #### L AB15 ####Language Assistant: ALEXANDRA BUSTAMANTE ([id number])[facility] ([facility])[address] [place] [address] Urea nitrogen [Mass/Vol] 24 mg/dL High 7-17 [facility] Comment on above: Performed By: #### L AB15 ####Language Assistant: ALEXANDRA BUSTAMANTE ([phone])[facility] [place] [address] Basic metabolic 1998 panelon 06-18-2023 Anion gap [Moles/Vol] 10 mmol/L 3 - 13 mmol/L [facility] Calcium [Mass/Vol] 8.8 mg/dL 8.4 - 10. 4 mg/dL [facility] Chloride [Moles/Vol] 98 mmol/L 98 - 10 7 mmol/L [facility] CO2 [Moles/Vol] 25 mmol/L 22 - 30 mmol/L [facility] Creatinine [Mass/Vol] 0.83 mg/dL 0.52 - 1.04 mg/dL [facility] GFR/1.73 sq M.predicted MDRD (S/P/Bld) [Vol rate/Area] 68.3 mL/min/{1.73_m2} - PINF [facility] Comment on above: Calculation based on the Chronic Kidney Disease Epidemiology Collaboration (CKD-EPI) equation refit without adjustment for race Glucose [Mass/Vol] 163 mg/dL High 70 - 100 mg/dL [facility] Interpretation and review of laboratory results Abnormal [facility] Potassium [Moles/Vol] 4.6 mmol/L 3.5 - 5.1 mmol/L [facility] Sodium [Moles/Vol] 133 mmol/L Low 135 - 145 mmol/L [facility] Urea nitrogen [Mass/Vol] 24 mg/dL High 7 - 17 mg/d L [facility] CARECOORDon 06-18-[address] [facility] Initial Assessment Date: 06/18/2023 Patient Name: Ezra Gonzalez : 1935 Patient Information Source of Information: Patient Cognition/Language: WFL - Within Functional Limits Permission given to speak with patient sales and marketing representative/caregi saira as indicated: No Confirmation of Payer with patient/family: Yes Payer Name: [facility] : No Confirmation of Primary Care Physician: Confirmed Primary Caregiver: Self If assistance needed, confirmed caregiver ready, willing and able to care for patient at discharge: Confirmed with: Living Arrangements Current Residence: Number of Floors Number of Entry Steps: Bed/Bath Levels: Facility: Assisted Living [facility] Name: [facility] Plan to Return: Yes Lives with: Alone [...] TO FOLLOW. Shikha Gray RN Normal [facility] CBC W Auto Differential pane l (Bld)Ordered By: Nir Meza on 06-18-2023 Basophils (Bld) [#/Vol] 0.1 10*3/uL 0.0 - 0.2 10*3/uL [facility] Basophils/100 WBC (Bld) 0.4 % 0.0 - 2.0 % [facility] Eosinophils (Bld) [#/Vol] 0.2 10*3/uL 0. 0 - 0.5 10*3/uL [facility] Eosinophils/100 WBC (Bld) 1.3 % 0.0 - 6.0 % [facility] Erythrocyte distribution width (RBC) [Ratio] 13.8 % 11.5 - 15.0 % [facility] Hematocrit (Bld) [Volume fraction] 44.1 % 35.0 - 47.0 % [facility] Hemoglobin (Bld) [Mass/Vol] 13.9 g/dL 11.7 - 16.0 g/dL [facility] Immature granulocytes (Bld) [#/Vol] 0.1 10*3/uL High NINF - 0.1 10*3/uL [facility] Immature granulocytes/100 WBC (Bld) 0.4 % 0.0 - 2.0 % [facility] Interpretation and review of laboratory results Abnormal [facility] Lymphocytes (Bld) [#/Vol] 2.0 10*3/uL 1. 0 - 4.3 10*3/uL [facility] Lymphocytes/100 WBC (Bld) 13.1 % Low 15 .0 - 45.0 % [facility] MCH (RBC) [Entitic mass] 28.0 pg 26. 0 - 34.0 pg [facility] MCHC (RBC) [Mass/Vol] 31.5 % 30.5 - 36.0 % [facility] MCV (RBC) [Entitic vol] 88.9 fL 77.0 - 99.0 fL [facility] Monocytes (Bld) [#/Vol] 1.4 10*3/uL High 0.0 - 0.9 10*3/uL [facility] Monocytes/100 WBC (Bld) 9.0 % 5.0 - 13.0 % [facility] Neutrophils (Bld) [#/Vol] 11.8 10*3/uL High 1. 8 - 7.5 10*3/uL [facility] Neutrophils/100 WBC (Bld) 75.8 % 38 .0 - 82.0 % [facility] Nucleated RBC/100 WBC (Bld) [Ratio] 0.0 % [facility] Platelet mean volume (Bld) [Entitic vol] 10.1 fL 9.0 - 12.7 fL [facility] Platelets (Bld) [#/Vol] 375 10*3/uL 140 - 440 10*3/uL [facility] RBC (Bld) [#/Vol] 4.96 10*6/uL 3.80 - 5.2 0 10*6/uL [facility] WBC (Bld) [#/Vol] 15.5 10*3/uL High 3.6 - 10.7 10*3/uL [facility] CBC WITH AUTO DIFFERENTIALon 06-18-2023 Basophils (Bld) [#/Vol] 0.1 10*3/uL Normal 0.0-0.2 [facility] Comment on above: Performed By: #### L [id number] ####Language Assistant: ALEXANDRA BUSTAMANTE ([id number])[facility])[address] [place] [address] Basophils/100 WBC (Bld) 0.4 % Normal 0.0-2.0 [facility] Comment on above: Performed By: #### L [id number] ####Language Assistant: ALEXANDRA BUSTAMANTE ([phone])[facility])[address] [place] [address] Eosinophils (Bld) [#/Vol] 0.2 10*3/uL Normal 0.0-0.5 [facility] Comment on above: Performed By: #### L [id number] ####Language Assistant: ALEXANDRA BUSTAMANTE ([phone])[facility])[address] [place] [address] Eosinophils/100 WBC (Bld) 1.3 % Normal 0.0-6.0 [facility] Comment on above: Performed By: #### L [id number] ####Language Assistant: ALEXANDRA [id number])[facility])[address] [place] [address] Erythrocyte distribution width (RBC) [Ratio] 13.8 % Normal 11.5-15.0 [facility] Comment on above: Performed By: #### L [id number] ####Language Assistant: ALEXANDRA BUSTAMANTE ([phone])[facility])[address] [place] [address] Hematocrit (Bld) [Volume fraction] 44.1 % Normal 35.0-47.0 [facility] Comment on above: Performed By: #### L [id number] ####Language Assistant: ALEXANDRA BUSTAMANTE ([phone])[facility])[address] [place] [address] Hemoglobin (Bld) [Mass/Vol] 13.9 g/dL Normal 11.7-16.0 [facility] Comment on above: Performed By: #### L [id number] ####Language Assistant: ALEXANDRA BUSTAMANTE ([phone])[facility])[address] [place] [address] IMMATURE GRANS % 0.4 % Normal 0.0-2.0 [facility] Comment on above: Performed By: #### L [id number] ####Language Assistant: ALEXANDRA BUSTAMANTE ([phone])[facility])[address] [place] [address] IMMATURE GRANS ABSOLUTE 0.1 10*3/uL High <0.1 [facility] Comment on above: Performed By: #### L [id number] ####Language Assistant: ALEXANDRA BUSTAMANTE ([id number])[facility])[address] [place] [address] Lymphocytes (Bld) [#/Vol] 2.0 10*3/uL Normal 1.0-4.3 [facility] Comment on above: Performed By: #### L [id number] ####Language Assistant: ALEXANDRA BUSTAMANTE ([phone])[facility])[address] [place] [address] Lymphocytes/100 WBC (Bld) 13.1 % Low 15.0-45.0 [facility] Comment on above: Performed By: #### L [id number] ####Language Assistant: ALEXANDRA BUSTAMANTE ([id number])[facility])[address] [place] [address] MCH (RBC) [Entitic mass] 28.0 pg Normal 26.0-34.0 [facility] Comment on above: Performed By: #### L [id number] ####Language Assistant: ALEXANDRA BUSTAMANTE ([phone])[facility])[address] [place] [address] MCHC 31.5 % Normal 30.5-36.0 [facility] Comment on above: Performed By: #### L [id number] ####Language Assistant: ALEXANDRA BUSTAMANTE ([id number])[address] MCV (RBC) [Entitic vol] 88.9 fL Normal 77.0-99.0 [facility] Comment on above: Performed By: #### L [id number] ####Language Assistant: ALEXANDRA BUSTAMANTE ([id number])[facility])[address] [place] [address] Monocytes (Bld) [#/Vol] 1.4 10*3/uL High 0.0-0.9 [facility] Comment on above: Performed By: #### L [id number] ####Language Assistant: ALEXANDRA BUSTAMANTE ([phone])[facility])[address] [place] [address] Monocytes/100 WBC (Bld) 9.0 % Normal 5.0-13.0 [facility] Comment on above: Performed By: #### L [id number] ####Language Assistant: ALEXANDRA BUSTAMANTE ([id number])[address] NEUTROPHILS ABSOLUTE 11.8 10*3/uL High 1.8-7.5 [facility] Comment on above: Performed By: #### L [id number] ####Language Assistant: ALEXANDRA [id number])[facility] [place] [address] Neutrophils/100 WBC (Bld) 75.8 % Normal 38.0-82.0 [facility] Comment on above: Performed By: #### L [id number] ####Language Assistant: ALEXANDRA BUSTAMANTE ([id number])[facility] ([facility])[address] [place] [address] NRBC 0.0 /100 WBCs Normal 0.0-2.0 [facility] Comment on above: Performed By: #### L [id number] ####Language Assistant: ALEXANDRA BUSTAMANTE ([id number])[facility] ([facility])[address] [place] [address] Platelet mean volume (Bld) [Entitic vol] 10.1 fL Normal 9.0-12.7 [facility] Comment on above: Performed By: #### L [id number] ####Language Assistant: ALEXANDRA BUSTAMANTE ([id number])[facility] ([facility])[address] [place] [address] Platelets (Bld) [#/Vol] 375 10*3/uL Normal 140-440 [facility] Comment on above: Performed By: #### L [id number] ####Language Assistant: ALEXANDRA BUSTAMANTE ([id number])[facility] ([facility])[address] [place] [address] RBC (Bld) [#/Vol] 4.96 10*6/uL Normal 3.80-5.20 [facility] Comment on above: Performed By: #### L [id number] ####Language Assistant: ALEXANDRA BUSTAMANTE ([id number])[facility] ([facility])[address] [place] [address] WBC (Bld) [#/Vol] 15.5 10*3/uL High 3.6-10.7 [facility] Comment on above: Performed By: #### L [id number] ####Language Assistant: ALEXANDRA BUSTAMANTE ([id number])[facility] ([facility])[address] [place] [address] HEMOGLOBIN A1Con 06-18-2023 HbA1c (Bld) [Mass fraction] 7.3 % High <5.7 [facility] Comment on above: Order Comment: If no t done within the last 3 mos Result Comment: Norm al less than 5.7% Prediabetes 5.7% to 6.4% Diabetes 6.5% or higher --HgbA1C levels may not be accurate in patients who have renal disease, received recent blood transfusions, are anemic, or who have dyshemoglobinemia. Performed By: #### L AB90 ####Language Assistant: ALEXANDRA BUSTAMANTE ([phone])[facility] ([facility])[address] [place] [address] [place] IDNon 06-18-2023 IDN The patient is Moderately Stable - Low risk of patient condition declining or worsening The patient's goals for the shift include rest and pain control The clinical goals for the shift include rest and pain control Normal [facility] Laboratory - Chemistry and C hemistry - challengeon 06-18-2023 Glucose [Mass/Vol] 189 mg/dL High 70 - 100 mg/dL [facility] Procalcitonin [Mass/Vol] 0.06 ng/mL 0.0 0 - 0.09 ng/mL [facility] Glucose [Mass/Vol] 121 mg/dL High 70 - 100 mg/dL [facility] Average glucose Estimated from glycated hemoglobin (Bld) [Mass/Vol] 163 mg/dL [facility] Laboratory - Hematology and Cell countson 06-18-2023 HbA1c (Bld) [Mass fraction] 7.3 % High NINF - 5.7 % [facility] Comment on above: Normal less than 5.7 % Prediabetes 5.7% to 6.4% Diabetes 6.5% or higher --HgbA1C levels may not be accurate in patients who have renal disease, received recent blood transfusions, are anemic, or who have dyshemoglobinemia. No Panel Informationon 06-17 Interpretation and review of laboratory results Abnormal [facility] th Performed by: [facility], [address] [place] [address] CLIA ID: [id number] [facility] There is no interpretation needed for this exam. IMAGING Interpretation and review of laboratory results Abnormal [facility] Performed by: [facility], [address] [place] [address] CLIA ID: [id number] [facility] Interpretation and review of laboratory results Abnormal [facility] Radiology Study observation (narrative) [facility] Anish isabel Radiology Study observation (narrative) [facility] Nursing Noteon 06-18-2023 Nursing Note Pt states no need to contact family. RN on floor states she will call pt's son,. Normal [facility] Nursing Note Patients wallet and watch locked up with security. OR notified patient states she has latex allergy Patients purse and glasses taken to pacu Normal [facility] Op Noteon 06-18-2023 Op Note [facility] OR [address] [facility] [address] Dept: [phone] Loc: [phone] Operative Report Patient Name: Ezra Gonzalez Date of : 1935 Date of Surgery: 06/18/23 Pre-operative diagnosis: Right intra-articular distal humerus fracture Post-operative diagnosis: Same Procedure(s): Open reduction internal fixation of right intra-articular distal humerus fracture Surgeon: Benitez Givens M.D. Diversity Manager(s): Lexa Aparicio M.D. Anesthesia: General and Regional [...] as well as medical complications such as IN, stroke, PE, DVT, and even . Pt [...] Lexa Aparicio MD at 06/18/23, 7:20 PM [facility] Op Note Date: 06/16/2023 - 06/18/2023 Location: [facility] OR Name: Ezra Gonzalez, : 1935, Diagnosis Pre-op Diagnosis * Closed displaced fracture of medial condyle of right humerus, initial encounter [S42.031A] Post-op Diagnosis * Closed displaced fracture of medial condyle of right humerus, initial encounter [S42.480E] Procedures OPEN REDUCTION INTERNAL FIXATION RIGHT DISTAL HUMERUS 78850 - [place] OPTX HUMERAL SHFT FX W/PLATE/SCREWS W/WOCERCLAGE Surgeons * Benitez Givens - Primary Procedure Summary Anesthesia: * No anesthesia type entered * ASA: III Estimated Blood Loss: Minimal Drains: * None in log * Staff: Noodle Maker: Vivian Herrera RN Scrub Person: Linda [...] in 2 weeks -Ortho to follow. Normal [facility] PROCALCITONIN TESTon 024 PROCALCITONIN 0.06 ng/mL Normal 0.00-0.09 [facility] Comment on above: Result Comment: PUMA Leal COMMENTS: PCT <0.50 = Low risk of severe sepsis and/or septic shock. PCT >2.00 = High risk of severe sepsis and/or septic shock. Performed By: #### L [id number] ####Language Assistant: ALEXANDRA BUSTAMANTE ([id number])[facility] ([facility] Procalcitonin [Mass/Vol]on 0 06-18-2023 Interpretation and review of laboratory results Normal [facility] PCT <0.50 = Low risk of severe sepsis and/or septic shock. PCT >2.00 = High risk of severe sepsis and/or septic shock. [facility] Progress Noteon 06-18-2023 Progress Note Nutrition rescreen completed. Chart reviewed. Patient to be monitored and followed by the diet optical laboratory technician. Ele Butcher, NICA [facility] Progress Note OCCUPATIONAL THERAPY [facility] Name/MRN: Ezra Gonzalez ([id number]) Date: 06/18/2023 OT eval and treat order received. Patient chart reviewed. Per Ortho note, Plan for ORIF od R distal humerus. Will hold evaluation till after surgery. Louisa Cespedes, LAUREN Normal [facility] Progress Note PHYSICAL THERAPY [facility] Name/MRN: Ezra Gonzalez ([id number]) Date: 06/18/2023 PT orders received and chart reviewed. Per ortho note, Plan for ORIF R distal humerus. Will hold and attempt following surgery. Maryanne Neumann, PT Normal [facility] ECG 12-LEADon 06-17-2023 ECG 12-LEAD IMPRESSION: Atrial fibrillation Probable left ventricular hypertrophy No previous ECG for comparison Electronically Signed On 06-17-2023 06:39:12 EDT by Thong Francois Normal [facility] ED Nursing Noteon 06-17-2023 ED Nursing Note Patient resting in bed at this time, equal unlabored respirations noted and no acute distress, call león within reach Di Reyna RN 06/17/23 1153 Normal [facility] ED Nursing Note Pt O2 desaturating t o mid 80s after receiving dilaudid IV. Pt placed on 2L NC and immediately back up to 95%. notified Alia Foster, JAYME 06/17/23 1031 Normal [facility] ED Nursing Note Pt upset with [...] US IV line. Juanjo Pringle RN 06/16/23 4748 Normal [facility] Laboratory - Chemistry and C hemistry - challengeon 06-17-2023 Glucose [Mass/Vol] 137 mg/dL High 70 - 100 mg/dL [facility] Laboratory - Coagulationon 0 06-17-2023 PT Coag (Bld) [Time] 14.5 s High 9.0 - 12.0 s [facility] No Panel Informationon 06-16 Interpretation and review of laboratory results Abnormal [facility] Performed by: [facility], [address] [place] [address] CLIA ID: [id number] [facility] Atrial fibrillation Probable left ventricular hypertrophy No previous ECG for comparison Electronically Signed On 06-17-2023 06:39:12 EDT by Thong Arvizu D O - 06/17/2023 IMPRESSION: Atrial fibrillation Probable left ventricular hypertrophy No previous ECG for comparison Electronically Signed On 06-17-2023 06:39:12 EDT by Thong Francois [facility] Radiology Study observation (narrative) [facility] No Panel InformationOrdered By: Thong Francois on 06-17-2023 P Bazine 0 degrees [facility] Work Phone: MA Interval 0 ms [facility] Work Phone: QRS Bazine -24 degrees [facility] Work Phone: [phone] QRSD Interval 103 ms [facility] [employer] Work Phone: [phone] QT Interval 382 ms [facility] Work Phone: QTC Interval 442 ms [facility] Work Phone: T Wave Bazine 31 degrees [facility] Work Phone: [facility] Work Phone: Nursing Noteon 06-17-2023 Nursing Note Patient home medication list updated, provider made aware. Normal [facility] PROTHROMBIN TIMEon INR Coag (PPP) [Relative time] 1.4 {INR} High 0.9-1.1 [facility] Comment on above: Result Comment: Reji [...] Infarction Performed By: #### L [id number] #### Language Assistant: ALEXANDRA BUSTAMANTE ([id number]) [facility] [address] [place] [address] PT Coag (PPP) [Time] 14.5 s High 9.0-12.0 [facility] Comment on above: Performed By: #### L [id number] #### Language Assistant: ALEXANDRA BUSTAMANTE ([id number]) [facility] ([facility]) [address] [place] [address] [place] PT Coag (Bld) [Time]on 06-16 INR Coag (PPP) [Relative time] 1.4 {INR} High 0.9 - 1.1 [facility] Comment on above: Recommended Anticoag ulant Therapy: [...] Interpretation and review of laboratory results Abnormal [facility] Progress Noteon 06-17-2023 Progress Note Due to OR availability, case cancelled for today. Moved to tomorrow, 06/17. Ok for diet today. NPO @PA. Keep splint C/D/I. Evette Viera MD Orthopaedic Surgery, PGY-5 [phone] Normal [facility] Vital signsOrdered By: Neeta Francois on 06-17-2023 Heart rate 80 /min bpm [facility] Work Phone: XR Chest Single viewon 06-16 No acute cardiopulmonary process identified. Other chronic findings as discussed. 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 [facility] [employer] Houston Chau MD - 06/17/2023 Patient Name: EZRA [facility]ON[facility]ALEZ : 1935 [id number] Exam Date/Time: 06/17/2023 00:38 Procedure: XR CHEST [...] Electronically Signed Date/Time: 06/17/2023 12:44 AM EDT [facility] Radiology Study observation (narrative) [facility] XR Chest Single viewOrdered By: Houston Chau on 06-17-2023 [facility] Work Phone: Absolute lymphocyte countOrd ered By: Lali Pimentel on 06-16-2023 Lymphocytes Auto (Unsp spec) [#/Vol] 3.86 10*3/uL 0.83-4.51 [facility] Automated lymphocyte count a s percentage of total leukocytesOrdered By: Lali Pimentel on 06-16-2023 Lymphocytes/100 WBC Auto (Unsp spec) 23.0 % 19-41 [facility] BASIC METABOLIC PANELon 05-29 Anion gap [Moles/Vol] 7 mmol/L Normal 3-13 [facility] Comment on above: Performed By: #### L AB15 ####Language Assistant: ALEXANDRA BUSTAMANTE ([phone])[facility] ([address] Calcium [Mass/Vol] 8.6 mg/dL Normal 8.4-10.4 [facility] Comment on above: Performed By: #### L AB15 ####Language Assistant: ALEXANDRA BUSTAMANTE ([phone])[facility] ([facility] [place] [address] Chloride [Moles/Vol] 99 mmol/L Normal 98-107 [facility] Comment on above: Performed By: #### L AB15 ####Language Assistant: ALEXANDRA BUSTAMANTE ([phone])[facility] [place] [address] CO2 [Moles/Vol] 29 mmol/L Normal 22-30 [facility] Comment on above: Performed By: #### L AB15 ####Language Assistant: ALEXANDRA BUSTAMANTE ([phone])[facility])[address] [place] [address] Creatinine [Mass/Vol] 0.79 mg/dL Normal 0.52-1.04 [facility] Comment on above: Performed By: #### L AB15 ####Language Assistant: ALEXANDRA BUSTAMANTE ([phone])[facility] ([facility])[address] [place] [address] [place] GLOMERULAR FILTRATION RATE ML/MIN/1.73 SQ M.PREDICTED 72.5 mL/min/1.73m*2 Normal >60.0 [facility] Comment on above: Result Comment: Calc ulation based on the Chronic Kidney Disease Epidemiology Collaboration (CKD-EPI) equation refit without adjustment for race Performed By: #### L AB15 ####Language Assistant: ALEXANDRA BUSTAMANTE ([phone])[facility] ([facility] [place] [address] [place] Glucose [Mass/Vol] 186 mg/dL High 70-100 [facility] Comment on above: Performed By: #### L AB15 ####Language Assistant: ALEXANDRA BUSTAMANTE ([phone])[facility] [place] [address] Potassium [Moles/Vol] 4.5 mmol/L Normal 3.5-5.1 [facility] Comment on above: Performed By: #### L AB15 ####Language Assistant: ALEXANDRA BUSTAMANTE ([phone])[facility] ([facility])[address] [place] [address] Sodium [Moles/Vol] 136 mmol/L Normal 135-145 [facility] Comment on above: Performed By: #### L AB15 ####Language Assistant: ALEXANDRA BUSTAMANTE ([phone])[facility] ([facility])[address] [place] [address] Urea nitrogen [Mass/Vol] 26 mg/dL High 7-17 [facility] Comment on above: Performed By: #### L AB15 ####Language Assistant: ALEXANDRA BUSTAMANTE ([id number])[facility] ([facility])[address] [place] [address] BLOOD TYPE AND SCREEN GELon 06-16-2023 ABO GROUPING A Normal [facility] Comment on above: Performed By: #### L [id number] ####Language Assistant: ALEXANDRA BUSTAMANTE ([phone])[facility] ([facility])[address] [place] [address] RH TYPE IN BLOOD Positive Normal [facility] Comment on above: Performed By: #### L [id number] ####Language Assistant: ALEXANDRA BUSTAMANTE ([phone])[facility] ([facility])[address] [place] [address] Basic metabolic 1998 panelon 06-16-2023 Anion gap [Moles/Vol] 7 mmol/L 3 - 13 mmol/L [facility] Calcium [Mass/Vol] 8.6 mg/dL 8.4 - 10. 4 mg/dL [facility] Chloride [Moles/Vol] 99 mmol/L 98 - 10 7 mmol/L [facility] CO2 [Moles/Vol] 29 mmol/L 22 - 30 mmol/L [facility] Creatinine [Mass/Vol] 0.79 mg/dL 0.52 - 1.04 mg/dL [facility] GFR/1.73 sq M.predicted MDRD (S/P/Bld) [Vol rate/Area] 72.5 mL/min/{1.73_m2} - PINF [facility] Comment on above: Calculation based on the Chronic Kidney Disease Epidemiology Collaboration (CKD-EPI) equation refit without adjustment for race Glucose [Mass/Vol] 186 mg/dL High 70 - 100 mg/dL [facility] Interpretation and review of laboratory results Abnormal [facility] Potassium [Moles/Vol] 4.5 mmol/L 3.5 - 5.1 mmol/L [facility] Sodium [Moles/Vol] 136 mmol/L 135 - 145 mmol/L [facility] Urea nitrogen [Mass/Vol] 26 mg/dL High 7 - 17 mg/d L [facility] Basophil percentageOrdered B y: Lali Pimentel on 06-16-2023 Basophils/100 WBC (Bld) 0.4 % 0-1 [facility] Chloride [Moles/Vol] 104 mmol/L 98-107 [facility] Eosinophils/100 WBC (Bld) 1.3 % 0-5 [facility] Glucose [Mass/Vol] 191 mg/dL 74-106 [facility] Comment on above: Fasting Glucose resu lt greater than or equal to 126 mg/dL suggests DIABETES MELLITUS per A.D.A. criteria. Hemoglobin (Bld) [Mass/Vol] 13.6 g/dL 12.0-15.0 [facility] Monocytes/100 WBC (Bld) 7.0 % 0-10 [facility] Neutrophils (Bld) [#/Vol] 11.4 10*3/uL 2.0-7.7 [facility] Neutrophils/100 WBC (Bld) 67.8 % 47-70 [facility] Potassium [Moles/Vol] 3.4 mmol/L 3.5-5.1 [facility] Sodium [Moles/Vol] 140 mmol/L 136-145 [facility] WBC (Bld) [#/Vol] 16.8 10*3/uL 4.4-11.0 [facility] Blood type and Crossmatch pa ro (Bld)on 06-16-2023 Blood group antibody screen GEL Ql Negative [facility] CBC W Auto Differential pane l (Bld)on 06-16-2023 Basophils (Bld) [#/Vol] 0.0 10*3/uL 0.0 - 0.2 10*3/uL [facility] Basophils/100 WBC (Bld) 0.2 % 0.0 - 2.0 % [facility] Eosinophils (Bld) [#/Vol] 0.0 10*3/uL 0. 0 - 0.5 10*3/uL [facility] Eosinophils/100 WBC (Bld) 0.0 % 0.0 - 6.0 % [facility] Erythrocyte distribution width (RBC) [Ratio] 13.6 % 11.5 - 15.0 % [facility] Hematocrit (Bld) [Volume fraction] 38.9 % 35.0 - 47.0 % [facility] Hemoglobin (Bld) [Mass/Vol] 12.8 g/dL 11.7 - 16.0 g/dL [facility] Immature granulocytes (Bld) [#/Vol] 0.1 10*3/uL High NINF - 0.1 10*3/uL [facility] Immature granulocytes/100 WBC (Bld) 0.6 % 0.0 - 2.0 % [facility] Interpretation and review of laboratory results Abnormal [facility] th Lymphocytes (Bld) [#/Vol] 1.1 10*3/uL 1. 0 - 4.3 10*3/uL [facility] Lymphocytes/100 WBC (Bld) 6.5 % Low 15 .0 - 45.0 % [facility] MCH (RBC) [Entitic mass] 29.1 pg 26. 0 - 34.0 pg [facility] MCHC (RBC) [Mass/Vol] 32.9 % 30.5 - 36.0 % [facility] MCV (RBC) [Entitic vol] 88.4 fL 77.0 - 99.0 fL [facility] Monocytes (Bld) [#/Vol] 0.7 10*3/uL 0.0 - 0.9 10*3/uL [facility] Monocytes/100 WBC (Bld) 4.4 % Low 5.0 - 13.0 % [facility] Neutrophils (Bld) [#/Vol] 14.3 10*3/uL High 1. 8 - 7.5 10*3/uL [facility] Neutrophils/100 WBC (Bld) 88.3 % High 38 .0 - 82.0 % [facility] Nucleated RBC/100 WBC (Bld) [Ratio] 0.0 % [facility] Platelet mean volume (Bld) [Entitic vol] 9.9 fL 9.0 - 12.7 fL [facility] Platelets (Bld) [#/Vol] 357 10*3/uL 140 - 440 10*3/uL [facility] RBC (Bld) [#/Vol] 4.40 10*6/uL 3.80 - 5.2 0 10*6/uL [facility] WBC (Bld) [#/Vol] 16.2 10*3/uL High 3.6 - 10.7 10*3/uL [facility] CBC WITH AUTO DIFFERENTIALon 06-16-2023 Basophils (Bld) [#/Vol] 0.0 10*3/uL Normal 0.0-0.2 [facility] Comment on above: Performed By: #### L [id number] ####Language Assistant: ALEXANDRA BUSTAMANTE ([phone])[facility] ([facility])[address] [place] [address] Basophils/100 WBC (Bld) 0.2 % Normal 0.0-2.0 [facility] Comment on above: Performed By: #### L [id number] ####Language Assistant: ALEXANDRA BUSTAMANTE ([phone])[facility] ([facility])[address] [place] [address] Eosinophils (Bld) [#/Vol] 0.0 10*3/uL Normal 0.0-0.5 [facility] Comment on above: Performed By: #### L [id number] ####Language Assistant: ALEXANDRA BUSTAMANTE ([phone])[facility] ([facility])[address] [place] [address] Eosinophils/100 WBC (Bld) 0.0 % Normal 0.0-6.0 [facility] Comment on above: Performed By: #### L [id number] ####Language Assistant: ALEXANDRA BUSTAMANTE ([phone])[facility])[address] [place] [address] Erythrocyte distribution width (RBC) [Ratio] 13.6 % Normal 11.5-15.0 [facility] Comment on above: Performed By: #### L [id number] ####Language Assistant: ALEXANDRA [id number])[facility])[address] [place] [address] Hematocrit (Bld) [Volume fraction] 38.9 % Normal 35.0-47.0 [facility] Comment on above: Performed By: #### L [id number] ####Language Assistant: ALEXANDRA BUSTAMANTE ([phone])[facility])[address] [place] [address] Hemoglobin (Bld) [Mass/Vol] 12.8 g/dL Normal 11.7-16.0 [facility] Comment on above: Performed By: #### L [id number] ####Language Assistant: ALEXANDRA BUSTAMANTE ([phone])[facility])[address] [place] [address] IMMATURE GRANS % 0.6 % Normal 0.0-2.0 [facility] Comment on above: Performed By: #### L [id number] ####Language Assistant: ALEXANDRA BUSTAMANTE ([phone])[facility])[address] [place] [address] IMMATURE GRANS ABSOLUTE 0.1 10*3/uL High <0.1 [facility] Comment on above: Performed By: #### L [id number] ####Language Assistant: ALEXANDRA BUSTAMANTE ([phone])[facility])[address] [place] [address] Lymphocytes (Bld) [#/Vol] 1.1 10*3/uL Normal 1.0-4.3 [facility] Comment on above: Performed By: #### L [id number] ####Language Assistant: ALEXANDRA BUSTAMANTE ([phone])[facility])[address] [place] [address] Lymphocytes/100 WBC (Bld) 6.5 % Low 15.0-45.0 [facility] Comment on above: Performed By: #### L [id number] ####Language Assistant: ALEXANDRA BUSTAMANTE ([phone])[facility])[address] [place] [address] MCH (RBC) [Entitic mass] 29.1 pg Normal 26.0-34.0 [facility] Comment on above: Performed By: #### L [id number] ####Language Assistant: ALEXANDRA BUSTAMANTE ([phone])[facility])[address] [place] [address] MCHC 32.9 % Normal 30.5-36.0 [facility] Comment on above: Performed By: #### L [id number] ####Language Assistant: ALEXANDRA BUSTAMANTE ([phone])[facility])[address] [place] [address] MCV (RBC) [Entitic vol] 88.4 fL Normal 77.0-99.0 [facility] Comment on above: Performed By: #### L [id number] ####Language Assistant: ALEXANDRA BUSTAMANTE ([phone])[facility])[address] [place] [address] Monocytes (Bld) [#/Vol] 0.7 10*3/uL Normal 0.0-0.9 [facility] Comment on above: Performed By: #### L [id number] ####Language Assistant: ALEXANDRA BUSTAMANTE ([phone])[facility])[address] [place] [address] Monocytes/100 WBC (Bld) 4.4 % Low 5.0-13.0 [facility] Comment on above: Performed By: #### L [id number] ####Language Assistant: ALEXANDRA BUSTAMANTE ([phone])[facility])[address] [place] [address] NEUTROPHILS ABSOLUTE 14.3 10*3/uL High 1.8-7.5 [facility] Comment on above: Performed By: #### L [id number] ####Language Assistant: ALEXANDRA BUSTAMANTE ([phone])[facility])[address] [place] [address] Neutrophils/100 WBC (Bld) 88.3 % High 38.0-82.0 [facility] Comment on above: Performed By: #### L [id number] ####Language Assistant: ALEXANDRA BUSTAMANTE ([phone])[facility] ([facility])[address] [place] [address] NRBC 0.0 /100 WBCs Normal 0.0-2.0 [facility] Comment on above: Performed By: #### L [id number] ####Language Assistant: ALEXANDRA BUSTAMANTE ([phone])[facility])[address] [place] [address] Platelet mean volume (Bld) [Entitic vol] 9.9 fL Normal 9.0-12.7 [facility] Comment on above: Performed By: #### L [id number] ####Language Assistant: ALEXANDRA BUSTAMANTE ([phone])[facility] ([facility])[address] [place] [address] Platelets (Bld) [#/Vol] 357 10*3/uL Normal 140-440 [facility] Comment on above: Performed By: #### L [id number] ####Language Assistant: ALEXANDRA BUSTAMANTE ([phone])[facility] ([facility])[address] [place] [address] RBC (Bld) [#/Vol] 4.40 10*6/uL Normal 3.80-5.20 [facility] Comment on above: Performed By: #### L [id number] ####Language Assistant: ALEXANDRA BUSTAMANTE ([phone])[facility])[address] [place] [address] WBC (Bld) [#/Vol] 16.2 10*3/uL High 3.6-10.7 [facility] Comment on above: Performed By: #### L [id number] ####Language Assistant: ALEXANDRA BUSTAMANTE ([phone])[facility])[address] [place] [address] CT ELBOW RIGHT WO IV CONTRAS Ton [...] Injury (Pt arrives [facility] with complaints of right elbow fracture. Patient was sent here for ortho consult. No pain on arrival. Arrives with right arm splinted.)Closed displaced fracture of medial condyle of right humerus, initial encounter Normal [facility] CT Elbow - right WO contrast on 06-16-2023 Impression: Extensively comminuted supracondylar humerus fracture. The fracture has multiple foci of articular extension to the lateral and central aspect of the condyle. Report Dictated on Electronically Signed By: Pastor Francisco MD Electronically Signed Date/Time: 06/16/2023 6:13 PM EDT [facility] [employer] Patient Name: EZRA GONZALEZ : 1935 [...] process fracture. Joint effusion. Decreased osseous mineralization. [facility] Pastor Francisco MD - 06/16/2023 Patient [...] Electronically Signed Date/Time: 06/16/2023 6:13 PM EDT [facility] Radiology Study observation (narrative) Trina isabel Consulton 06-16-2023 Consult Ortho Consult Patient: Ezra Gonzalez Date of : 1935 Acct: [id number] PCP: No primary care provider on file. Date of Admission: 06/16/2023 Date of Service: Pt seen/examined on 06/16/2023 Chief Complaint: right distal humerus fracture History Of Present Illness: This is a 87 y.o. right hand dominant female who presents with a right distal humerus fracture after a fall at home. Patient originally presented to [facility] where she was splinted and transferred to [facility] ED for ortho eval. Patient denies numbness, tingling, or weakness. Denies pain elsewhere and denies head trauma or LOC. 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 Patient has prior ortho surgery history of bilateral TKAs and right shoulder surgery, left carpal tunnel release, all at [facility][1]. Denies alcohol, tobacco, drug use. Patient ambulation [...] RH, LAB (more content not included)... Normal [facility] Determination of erythrocyte mean corpuscular volume (MCV)Ordered By: Lali Pimentel on 06-16-2023 MCV (RBC) [Entitic vol] 90.3 fL 81-99 [facility] ED Provider Noteon ED Provider Note Emergency Department Encounter [facility] EMERGENCY DEPT Patient: Ezra Gonzalez : 1935 [...] for clarification.) Sae Conde MD Acute Care [employer] Sae Conde MD 06/16/23 [id number] [facility] ED Provider Note EMERGENCY DEPARTMENT ENCOUNTER Pt Name: Ezra Gonzalez Birthdate 1935 Date of evaluation: 06/16/2023 ED Provider: NADIA Ruiz CHIEF COMPLAINT Chief Complaint Patient presents with Arm Injury Pt arrives via [facility] from [facility] with complaints of right elbow fracture. [...] injury anywhere else. Patient was evaluated at [facility] emergency department prior to arrival and was noted to have a distal humerus fracture. Patient was transferred to [facility] ED for orthopedic consultation. Patient denies any [...] 4.4 (*) (more content not included)... Normal [facility] Erythrocyte distribution wid th ratioOrdered By: Lali Pimentel on 06-16-2023 Erythrocyte distribution width (RBC) [Ratio] 13.3 % 11.6-14.6 [facility] Erythrocyte distribution wid th standard deviationOrdered By: Lali Pimentel on 06-16-2023 Erythrocyte distribution width (RBC) [Entitic vol] 43.9 fL 35.1-43.9 [facility] Hematocrit Auto (Bld) [Volum e fraction]Ordered By: Lali Pimentel on 06-16-2023 Hematocrit (Bld) [Volume fraction] 42.6 % 37-47 [facility] Immature granulocytes/100 WB C Auto (Bld)Ordered By: Lali Pimentel on 06-16-2023 Immature granulocytes/100 WBC (Bld) 0.500 % 0.0-0.9 [facility] Comment on above: IG% - Immature Granu locytes (promyelocytes, myelocytes and metamyelocytes) > 1% indicates that a LEFT SHIFT is Present. Laboratory - Blood bankon ABO group Nom (Bld) A [facility] D Ag Ql (RBC) Positive [facility] Laboratory - Chemistry and C hemistry - challengeOrdered By: Lali Pimentel on 06-16-2023 CO2 [Moles/Vol] 31.0 mmol/L 21.0-32.0 [facility] Urea nitrogen/Creatinine [Mass ratio] 20.9 mg/mg 10-20 [facility] Laboratory - Coagulationon 0 06-16-2023 PT Coag (Bld) [Time] 22.3 s High 9.0 - 12.0 s [facility] Laboratory - CoagulationOrde red By: Lali Pimentel on 06-16-2023 INR Coag (Bld) [Relative time] 2.2 {INR} [facility] PT Coag (PPP) [Time] 24.3 s 11.7-14.9 [facility] Laboratory - Hematology and Cell countsOrdered By: Lali Pimentel on 06-16-2023 MCH (RBC) [Entitic mass] 28.8 pg 27.0-32.0 [facility] MCHC (RBC) [Mass/Vol] 31.9 g/dL 32-36 [facility] Nucleated RBC/100 WBC (Bld) [Ratio] 0 % 0-5 [facility] Platelet mean volume (Bld) [Entitic vol] 9.9 fL 6.2-12.0 [facility] Platelets (Bld) [#/Vol] 414 10*3/uL 150-450 [facility] No Panel Informationon 06-15 [facility] No Panel InformationOrdered By: Lali Pimentel on 06-16-2023 Estimated Creatinine Clearance Calc 35.56 ml/min [facility] Estimated GFR (MDRD) Amer 57 mL/min >60 [facility] Comment on above: GFR Calc Estimated GFR (MDRD) Non-Af Amer 47 mL/min >60 [facility] Comment on above: Non- GFR Calc PROTHROMBIN TIMEon INR Coag (PPP) [Relative time] 2.2 {INR} High 0.9-1.1 [facility] Comment on above: Result Comment: Reji [...] Myocardial Infarction Performed By: #### L [id number] ####Language Assistant: ALEXANDRA BUSTAMANTE ([phone])[facility] ([facility])[address] [place] [address] PT Coag (PPP) [Time] 22.3 s High 9.0-12.0 [facility] Comment on above: Performed By: #### L [id number] ####Language Assistant: ALEXANDRA BUSTAMANTE ([phone])[facility] ([facility])[address] [place] [id number] [facility] PT Coag (Bld) [Time]on 06-15 INR Coag (PPP) [Relative time] 2.2 {INR} High 0.9 - 1.1 [facility] Comment on above: Recommended Anticoag ulant Therapy: [...] Interpretation and review of laboratory results Abnormal [facility] RBC Auto (Bld) [#/Vol]Ordere d By: Lali Pimentel on 06-16-2023 RBC (Bld) [#/Vol] 4.72 10*6/uL 4.2-5.4 [facility] Serum or plasma calcium viktoria urement (mass/volume)Ordered By: Lali Pimentel on 06-16-2023 Calcium [Mass/Vol] 8.8 mg/dL 8.5-10.1 [facility] Serum or plasma creatinine m easurement (mass/volume)Ordered By: Lali Pimentel on 06-16-2023 Creatinine [Mass/Vol] 1.15 mg/dL 0.55-1.02 [facility] Comment on above: The validity of the calculated GFR & GFRAA in patients over 70 years has not been determined. Clinical correlation is essential. Serum or plasma urea nitroge n measurement (mass/volume)Ordered By: Lali Pimentel on 06-16-2023 Urea nitrogen [Mass/Vol] 24 mg/dL 10-15 [facility] Thin prep Papanicolaou smear with manual screeningOrdered By: Lali Pimentel on 06-16-2023 Thin prep Papanicolaou smear with manual screening 08-12 [facility] XR Elbow - right 2 [...] Electronically Signed Date/Time: 06/16/2023 3:38 PM EDT [facility] Sae Dudley MD - 06/16/2023 [facility] 1935 [id number] Exam Date/Time: 06/16/2023 15:20 Procedure: XR ELBOW [...] Electronically Signed Date/Time: 06/16/2023 3:38 PM EDT [facility] Radiology Study observation (narrative) [facility] XR Elbow - right 2 ViewsOrde red By: Sae Dudley on 06-16-2023 [facility] Work Phone: XR Elbow - right 3 [...] Electronically Signed Date/Time: 06/16/2023 3:24 PM EDT [facility] Patient Name: EZRA GONZALEZ : 1935 Exam Date/Time: 06/16/2023 14:30 Procedure: XR ELBOW 3+ VIEWS RIGHT Ordering Provider: TENORIO KASSIDY Reason For Exam: comminuted slightly displaced supracondylar fx of distal humerus with extension to the medial epicondyle - seen at [place] cannot see imaging Examination: Right elbow Clinical Indication: Pain Comparison: None [facility] Pastor Francisco MD - 06/16/2023 Patient Name: EZRA GONZALEZ : 1935 Exam Date/Time: 06/16/2023 14:30 Procedure: XR ELBOW 3+ VIEWS RIGHT Ordering Provider: TENORIO KASSIDY Reason For Exam: comminuted slightly displaced supracondylar fx of distal humerus with extension to the medial epicondyle - seen at [place] cannot see imaging Examination: Right elbow Clinical [...] Electronically Signed Date/Time: 06/16/2023 3:24 PM EDT [facility] Radiology Study observation (narrative) [facility] alth XR Elbow - right 3 ViewsOrde red By: Pastor Francisco on 06-16-2023 [facility] Work Phone: XR Shoulder - right 2 [...] Electronically Signed Date/Time: 06/16/2023 3:30 PM EDT [facility] Patient Name: EZRA GONZALEZ : 1935 [...] glenohumeral joint. Acromioclavicular joint appears grossly intact. [facility] Reji Lemus MD - 06/16/2023 Patient [...] Electronically Signed Date/Time: 06/16/2023 3:30 PM EDT [facility] Radiology Study observation (narrative) [facility] alth XR Shoulder - right 2 ViewsO rdered By: Reji Lemus on 06-16-2023 [facility] Work Phone: Capillary blood internationa l normalized ratio (INR)Ordered By: Alexandra Hagen on 05-30-2023 INR Coag (BldC) [Relative time] 1.7 [facility] Comment on above: Critical Value > 4.0 Whole blood prothrombin time Ordered By: Alexandra Hagen on 05-30-2023 PT Coag (Bld) [Time] 18.0 s 11.7-14.9 [facility] Absolute lymphocyte countOrd ered By: Alexandra Hagen on 05-12-2023 Lymphocytes Auto (Unsp spec) [#/Vol] 1.60 10*3/uL 0.83-4.51 [facility] Automated lymphocyte count a s percentage of total leukocytesOrdered By: Alexandra Hagen on 05-12-2023 Lymphocytes/100 WBC Auto (Unsp spec) 20.2 % 19-41 [facility] Basophil percentageOrdered B y: Alexandra Hagen on 05-12-2023 Basophils/100 WBC (Bld) 0.5 % 0-1 [facility] Chloride [Moles/Vol] 109 mmol/L 98-107 [facility] Eosinophils/100 WBC (Bld) 3.7 % 0-5 [facility] Glucose [Mass/Vol] 206 mg/dL 74-106 [facility] Comment on above: Glucose result great er than or equal to 200 mg/dLsuggests DIABETES MELLITUS per A.D.A. criteria. Hemoglobin (Bld) [Mass/Vol] 13.1 g/dL 12.0-15.0 [facility] Monocytes/100 WBC (Bld) 7.8 % 0-10 [facility] Neutrophils (Bld) [#/Vol] 5.3 10*3/uL 2.0-7.7 [facility] Neutrophils/100 WBC (Bld) 67.5 % 47-70 [facility] Potassium [Moles/Vol] 4.6 mmol/L 3.5-5.1 [facility] Comment on above: Moderate Hemolysis, Result may be falsely increased. Sodium [Moles/Vol] 140 mmol/L 136-145 [facility] WBC (Bld) [#/Vol] 7.9 10*3/uL 4.4-11.0 [facility] Determination of erythrocyte mean corpuscular volume (MCV)Ordered By: Alexandra Hagen on 05-12-2023 MCV (RBC) [Entitic vol] 93.1 fL 81-99 [facility] Erythrocyte distribution wid th ratioOrdered By: Alexandra Hagen on 05-12-2023 Erythrocyte distribution width (RBC) [Ratio] 13.5 % 11.6-14.6 [facility] Erythrocyte distribution wid th standard deviationOrdered By: Alexandra Hagen on 05-12-2023 Erythrocyte distribution width (RBC) [Entitic vol] 46.0 fL 35.1-43.9 [facility] Hematocrit Auto (Bld) [Volum e fraction]Ordered By: Alexandra Hagen on 05-12-2023 Hematocrit (Bld) [Volume fraction] 41.8 % 37-47 [facility] Immature granulocytes/100 WB C Auto (Bld)Ordered By: Alexandra Hagen on 05-12-2023 Immature granulocytes/100 WBC (Bld) 0.300 % 0.0-0.9 [facility] Comment on above: IG% - Immature Granu locytes (promyelocytes, myelocytes and metamyelocytes) > 1% indicates that a LEFT SHIFT is Present. Laboratory - Chemistry and C hemistry - challengeOrdered By: Alexandra Hagen on 05-12-2023 CO2 [Moles/Vol] 25.0 mmol/L 21.0-32.0 [facility] Urea nitrogen/Creatinine [Mass ratio] 13.7 mg/mg 10-20 [facility] Laboratory - Hematology and Cell countsOrdered By: Alexandra Hagen on 05-12-2023 MCH (RBC) [Entitic mass] 29.2 pg 27.0-32.0 [facility] MCHC (RBC) [Mass/Vol] 31.3 g/dL 32-36 [facility] Nucleated RBC/100 WBC (Bld) [Ratio] 0 % 0-5 [facility] Platelet mean volume (Bld) [Entitic vol] 10.6 fL 6.2-12.0 [facility] Platelets (Bld) [#/Vol] 272 10*3/uL 150-450 [facility] No Panel InformationOrdered By: Alexandra Hagen on 05-12-2023 Estimated GFR (MDRD) Amer 53 mL/min >60 [facility] Comment on above: GFR Calc Estimated GFR (MDRD) Non-Af Amer 43 mL/min >60 [facility] Comment on above: Non- GFR Calc RBC Auto (Bld) [#/Vol]Ordere d By: Alexandra Hagen on 05-12-2023 RBC (Bld) [#/Vol] 4.49 10*6/uL 4.2-5.4 [facility] Serum or plasma calcium viktoria urement (mass/volume)Ordered By: Alexandra Hagen on 05-12-2023 Calcium [Mass/Vol] 8.5 mg/dL 8.5-10.1 [facility] Serum or plasma creatinine m easurement (mass/volume)Ordered By: Alexandra Hagen on 05-12-2023 Creatinine [Mass/Vol] 1.24 mg/dL 0.55-1.02 [facility] Comment on above: The validity of the calculated GFR & GFRAA in patients over 70 years has not been determined. Clinical correlation is essential. Serum or plasma urea nitroge n measurement (mass/volume)Ordered By: Alexandra Hagen on 05-12-2023 Urea nitrogen [Mass/Vol] 17 mg/dL 7-18 [facility] Thin prep Papanicolaou smear with manual screeningOrdered By: Alexandra Hagen on 05-12-2023 Thin prep Papanicolaou smear with manual screening 6 5-15 [facility] Whole blood hemoglobin A1c/t otal hemoglobin ratio (mass fraction)Ordered By: Alexandra Hagen on 05-12-2023 HbA1c (Bld) [Mass fraction] 6.8 % 3.8-5.6 [facility] Comment on above: Normal < 5.7 % Predi abetic 5.7 - 6.4 % Diabetic >or= 6.5 % Please note range changes. Capillary blood internationa l normalized ratio (INR)Ordered By: Alexandra Hagen on 05-01-2023 INR Coag (BldC) [Relative time] 2.0 [facility] Comment on above: Critical Value > 4.0 Whole blood prothrombin time Ordered By: Alexandra Hagen on 05-01-2023 PT Coag (Bld) [Time] 21.0 s 11.7-14.9 [facility] International normalized rat io (INR) calculationOrdered By: Alexandra Hagen on 04-17-2023 INR Coag (PPP) [Relative time] 1.8 {INR} [facility] Laboratory - CoagulationOrde red By: Alexandra Hagen on 04-17-2023 PT Coag (PPP) [Time] 21.0 s 11.7-14.9 [facility] Laboratory - CoagulationOrde red By: Alexandra Hagen on 03-20-2023 INR Coag (Bld) [Relative time] 2.4 {INR} [facility] Comment on above: Critical Value > 4.0 Whole blood prothrombin time Ordered By: Alexandra Hagen on 03-20-2023 PT Coag (Bld) [Time] 25.7 s 11.7-14.9 [facility] Basophil percentageOrdered B y: Alexandra Hagen on 02-21-2023 Bilirubin [Mass/Vol] 0.60 mg/dL 0.20-1.00 [facility] Comment on above: For patients on eltr ombopag therapy, use of Dimension [place] TBIL is not recommended. Chloride [Moles/Vol] 107 mmol/L 98-107 [facility] Cholesterol [Mass/Vol] 127 mg/dL <200 [facility] Comment on above: <200 mg/dL Desirable 200-240 mg/dL Borderline >240 mg/dL High Risk Glucose [Mass/Vol] 134 mg/dL 74-106 [facility] Comment on above: Fasting Glucose resu lt greater than or equal to 126 mg/dL suggests DIABETES MELLITUS per A.D.A. criteria. Potassium [Moles/Vol] 4.2 mmol/L 3.5-5.1 [facility] Protein [Mass/Vol] 6.2 g/dL 6.4-8.2 [facility] Sodium [Moles/Vol] 138 mmol/L 136-145 [facility] Triglyceride [Mass/Vol] 102 mg/dL <199 [facility] Comment on above: The drugs N-Acetylcy steine and Metamizole may falsely depress this assay.Serum Triglycerides Reference Interval Normal <150 mg/dL Borderline high 150 - 199 mg/dL High 200 - 499 mg/dL Very High > or = 500 mg/dL WBC (Bld) [#/Vol] 7.7 10*3/uL 4.4-11.0 [facility] Blood erythrocytes count (nu mber/volume)Ordered By: Alexandra Hagen on 02-21-2023 RBC (Bld) [#/Vol] 4.19 10*6/uL 4.2-5.4 [facility] Blood hemoglobin measurement (mass/volume)Ordered By: Alexandra Hagen on 02-21-2023 Hemoglobin (Bld) [Mass/Vol] 12.5 g/dL 12.0-15.0 [facility] Blood platelet mean volumeOr dered By: Alexandra Hagen on 02-21-2023 Platelet mean volume (Bld) [Entitic vol] 10.8 fL 6.2-12.0 [facility] Determination of erythrocyte mean corpuscular volume (MCV)Ordered By: Alexandra Hagen on 02-21-2023 MCV (RBC) [Entitic vol] 91.2 fL 81-99 [facility] Hematocrit Auto (Bld) [Volum e fraction]Ordered By: Alexandra Hagen on 02-21-2023 Hematocrit (Bld) [Volume fraction] 38.2 % 37-47 [facility] INR in Blood by Coagulation assayOrdered By: Alexandra Hagen on 02-21-2023 INR Coag (Bld) [Relative time] 2.3 {INR} [facility] Laboratory - Chemistry and C hemistry - challengeOrdered By: Alexandra Hagen on 02-21-2023 ALP [Catalytic activity/Vol] 84 U/L 45-117 [facility] ALT [Catalytic activity/Vol] 11 U/L 13-56 [facility] CO2 [Moles/Vol] 27.0 mmol/L 21.0-32.0 [facility] Globulin (S) [Mass/Vol] 3.3 g/dL 2.2-4.2 [facility] Urea nitrogen/Creatinine [Mass ratio] 14.0 mg/mg 10-20 [facility] Laboratory - CoagulationOrde red By: Alexandra Hagen on 02-21-2023 PT Coag (PPP) [Time] 25.3 s 11.7-14.9 [facility] Laboratory - Hematology and Cell countsOrdered By: Alexandra Hagen on 02-21-2023 Erythrocyte distribution width (RBC) [Entitic vol] 44.8 fL 35.1-43.9 [facility] Erythrocyte distribution width (RBC) [Ratio] 13.4 % 11.6-14.6 [facility] MCH (RBC) [Entitic mass] 29.8 pg 27.0-32.0 [facility] MCHC Auto (RBC) [Mass/Vol]Or dered By: Alexandra Hagen on 02-21-2023 MCHC (RBC) [Mass/Vol] 32.7 g/dL 32-36 [facility] No Panel InformationOrdered By: Alexandra Hagen on 02-21-2023 Estimated GFR (MDRD) Amer 68 mL/min >60 [facility] Comment on above: GFR Calc Estimated GFR (MDRD) Non-Af Amer 56 mL/min >60 [facility] Comment on above: Non- GFR Calc Platelets bldOrdered By: Alexandra Hagen on 02-21-2023 Platelets (Bld) [#/Vol] 297 10*3/uL 150-450 [facility] Serum or plasma albumin viktoria urement (mass/volume)Ordered By: Alexandra Hagen on 02-21-2023 Albumin [Mass/Vol] 2.9 g/dL 3.2-5.0 [facility] Serum or plasma albumin/glob ulin mass ratioOrdered By: Alexandra Hagen on 02-21-2023 Albumin/Globulin [Mass ratio] 0.9 {ratio} 0.9-2.4 [facility] Serum or plasma calcium viktoria urement (mass/volume)Ordered By: Alexandra Hagen on 02-21-2023 Calcium [Mass/Vol] 8.4 mg/dL 8.5-10.1 [facility] Serum or plasma cholesterol in HDL measurement (mass/volume)Ordered By: Alexandra Hagen on 02-21-2023 Cholesterol in HDL [Mass/Vol] 50 mg/dL >40 [facility] Comment on above: The drugs N-Acetylcy steine and Metamizole may falsely depress this assay. Reference Range HDL <40 mg/dL Low HDL Cholesterol HDL >or= 60 mg/dL High HDL Cholesterol Serum or plasma cholesterol in VLDL measurement (mass/volume)Ordered By: Alexandra Hagen on 02-21-2023 Cholesterol in VLDL [Mass/Vol] 20 mg/dL 5-40 [facility] Serum or plasma creatinine m easurement (mass/volume)Ordered By: Alexandra Hagen on 02-21-2023 Creatinine [Mass/Vol] 1.00 mg/dL 0.55-1.02 [facility] Comment on above: The validity of the calculated GFR & GFRAA in patients over 70 years has not been determined. Clinical correlation is essential. Serum or plasma low density lipoprotein (LDL) cholesterol measurement (mass/volume)Ordered By: Alexandra Hagen on 02-21-2023 Cholesterol in LDL [Mass/Vol] 57 mg/dL 0-130 [facility] Serum or plasma urea nitroge n measurement (mass/volume)Ordered By: Alexandra Hagen on 02-21-2023 Urea nitrogen [Mass/Vol] 14 mg/dL 7-18 [facility] Thin prep Papanicolaou smear with manual screeningOrdered By: Alexandra Hagen on 02-21-2023 Thin prep Papanicolaou smear with manual screening 16 U/L 15-37 [facility] Thin prep Papanicolaou smear with manual screening 4 5-15 [facility] Albumin Elph [Mass/Vol]Order ed By: Anant Juarez on 01-20-2023 Albumin [Mass/Vol] 3.4 g/dL 2.9-4.4 [facility] Basophil percentageOrdered B y: Anant Juarez on 01-20-2023 Basophil percentage Comment . [facility] Comment on above: No monoclonality det ected.Performed at: [facility], [place] [id number] Director: Master Vee PhD, Phone: [phone] Interpretation of serum or p lasma protein pattern by immunofixation (narrative resultOrdered By: Anant Juarez on 01-20-2023 Protein Fractions Immunofixation Manuel [Interp] See comment [facility] Comment on above: Result: Not Observed No Panel InformationOrdered By: Anant Juarez on 01-20-2023 Addendum Document Comment . [facility] Comment on above: Protein electrophore sis scan will follow via computer,mail, or visiting nurse delivery. Serum [id number] measu rement by electrophoresisOrdered By: Anant Juarez on 01-20-2023 Alpha 1 globulin Elph [Mass/Vol] 0.3 g/dL 0.0-0.4 [facility] Alpha 1 globulin Elph [Mass/Vol] 0.9 g/dL 0.4-1.0 [facility] Serum globulin measurement ( mass/volume)Ordered By: Anant Juarez on 01-20-2023 Globulin (S) [Mass/Vol] 3.0 g/dL 2.2-3.9 [facility] Serum or plasma IgA measurem ent (mass/volume)Ordered By: Anant Juarez 01-20-2023 IgA [Mass/Vol] 158 mg/dL 64-422 [facility] Serum or plasma IgG measurem ent (mass/volume)Ordered By: Anant Juarez 01-20-2023 IgG [Mass/Vol] 847 mg/dL [phone] [facility] Serum or plasma IgM measurem ent (mass/volume)Ordered By: Anant Juarez 01-20-2023 IgM [Mass/Vol] 48 mg/dL 26-217 [facility] Serum or plasma beta globuli n measurement by electrophoresis (mass/volume)Ordered By: Anant Juarez 01-20-2023 Beta globulin Elph [Mass/Vol] 1.0 g/dL 0.7-1.3 [facility] Serum or plasma gamma globul in measurement by electrophoresis (mass/volume)Ordered By: Anant Juarez 01-20-2023 Gamma globulin Elph [Mass/Vol] 0.7 g/dL 0.4-1.8 [facility] Serum or plasma immunoelectr ophoresis interpretation (nominal result)Ordered By: Anant Jerrica on 01-20-2023 Interpretation IEP [Interp] Comment . [facility] Comment on above: No monoclonality det ected. Thin prep Papanicolaou smear with manual screeningOrdered By: Anant Juarez on 01-20-2023 Thin prep Papanicolaou smear with manual screening 1.2 0.7-1.7 [facility] Total protein bloodOrdered B y: Aannt Juarez on 01-20-2023 Protein [Mass/Vol] 6.4 g/dL 6.0-8.5 [facility] Laboratory - CoagulationOrde red By: Alexandra Hagen on 01-16-2023 INR Coag (Bld) [Relative time] 2.2 {INR} [facility] Comment on above: Critical Value > 4.0 Whole blood prothrombin time Ordered By: Alexandra Hagen on 01-16-2023 PT Coag (Bld) [Time] 24.2 s 11.7-14.9 [facility] Absolute lymphocyte countOrd ered By: Lynn Horn on 12-28-2022 Lymphocytes Auto (Unsp spec) [#/Vol] 1.57 10*3/uL 0.83-4.51 [facility] Basophil percentageOrdered B y: Lynn Horn on 12-28-2022 Basophils/100 WBC (Bld) 0.6 % 0-1 [facility] Chloride [Moles/Vol] 108 mmol/L 98-107 [facility] Eosinophils/100 WBC (Bld) 3.0 % 0-5 [facility] Glucose [Mass/Vol] 117 mg/dL 74-106 [facility] Comment on above: Fasting Glucose resu lt from 100 to 125 mg/dL suggests IMPAIRED HOMEOSTASIS per A.D.A. criteria. Neutrophils (Bld) [#/Vol] 5.3 10*3/uL 2.0-7.7 [facility] Neutrophils/100 WBC (Bld) 66.8 % 47-70 [facility] Potassium [Moles/Vol] 3.9 mmol/L 3.5-5.1 [facility] Sodium [Moles/Vol] 138 mmol/L 136-145 [facility] WBC (Bld) [#/Vol] 7.9 10*3/uL 4.4-11.0 [facility] Blood erythrocytes count (nu mber/volume)Ordered By: Lynn Horn on 12-28-2022 RBC (Bld) [#/Vol] 4.32 10*6/uL 4.2-5.4 [facility] Blood hemoglobin measurement (mass/volume)Ordered By: Lynn Horn on 12-28-2022 Hemoglobin (Bld) [Mass/Vol] 12.8 g/dL 12.0-15.0 [facility] Blood lymphocytes/100 leukoc ytesOrdered By: Lynn Horn on 12-28-2022 Lymphocytes/100 WBC (Bld) 19.8 % 19-41 [facility] Blood monocytes/100 leukocyt esOrdered By: Lynn Horn on 12-28-2022 Monocytes/100 WBC (Bld) 9.5 % 0-10 [facility] Blood platelet mean volumeOr dered By: Lynn Horn on 12-28-2022 Platelet mean volume (Bld) [Entitic vol] 10.6 fL 6.2-12.0 [facility] Determination of erythrocyte mean corpuscular volume (MCV)Ordered By: Lynn Horn on 12-28-2022 MCV (RBC) [Entitic vol] 91.0 fL 81-99 [facility] Hematocrit Auto (Bld) [Volum e fraction]Ordered By: Lynn Horn on 12-28-2022 Hematocrit (Bld) [Volume fraction] 39.3 % 37-47 [facility] INR in Blood by Coagulation assayOrdered By: Lynn Horn on 12-28-2022 INR Coag (Bld) [Relative time] 2.1 {INR} [facility] Laboratory - Chemistry and C hemistry - challengeOrdered By: Lynn Horn on 12-28-2022 CO2 [Moles/Vol] 27.0 mmol/L 21.0-32.0 [facility] Urea nitrogen/Creatinine [Mass ratio] 15.7 mg/mg 10-20 [facility] Laboratory - CoagulationOrde red By: Lynn Horn on 12-28-2022 PT Coag (PPP) [Time] 23.8 s 11.7-14.9 [facility] - Hematology and Cell countsOrdered By: Lynn Horn on 12-28-2022 Erythrocyte distribution width (RBC) [Entitic vol] 43.0 fL 35.1-43.9 [facility] Erythrocyte distribution width (RBC) [Ratio] 12.9 % 11.6-14.6 [facility] Immature granulocytes/100 WBC (Bld) 0.300 % 0.0-0.9 [facility] Comment on above: IG% - Immature Granu locytes (promyelocytes, myelocytes and metamyelocytes) > 1% indicates that a LEFT SHIFT is Present. MCH (RBC) [Entitic mass] 29.6 pg 27.0-32.0 [facility] Nucleated RBC/100 WBC (Bld) [Ratio] 0 % 0-5 [facility] MCHC Auto (RBC) [Mass/Vol]Or dered By: Lynn Horn on 12-28-2022 MCHC (RBC) [Mass/Vol] 32.6 g/dL 32-36 [facility] No Panel InformationOrdered By: Lynn Horn on 12-28-2022 Estimated Creatinine Clearance Calc 36.84 ml/min [facility] Estimated GFR (MDRD) Amer 77 mL/min >60 [facility] Comment on above: GFR Calc Estimated GFR (MDRD) Non-Af Amer 64 mL/min >60 [facility] Comment on above: Non- GFR Calc Platelets bldOrdered By: Lois Horn on 12-28-2022 Platelets (Bld) [#/Vol] 272 10*3/uL 150-450 [facility] Serum or plasma calcium viktoria urement (mass/volume)Ordered By: Lynn Hron on 12-28-2022 Calcium [Mass/Vol] 8.3 mg/dL 8.5-10.1 [facility] Serum or plasma creatinine m easurement (mass/volume)Ordered By: Lynn Horn on 12-28-2022 Creatinine [Mass/Vol] 0.89 mg/dL 0.55-1.02 [facility] Comment on above: The validity of the calculated GFR & GFRAA in patients over 70 years has not been determined. Clinical correlation is essential. Serum or plasma urea nitroge n measurement (mass/volume)Ordered By: Lynn Horn on 12-28-2022 Urea nitrogen [Mass/Vol] 14 mg/dL 7-18 [facility] Thin prep Papanicolaou smear with manual screeningOrdered By: Lynn Horn on 12-28-2022 Thin prep Papanicolaou smear with manual screening 3 5-15 [facility] Laboratory - CoagulationOrde red By: Lali Pimentel on 12-27-2022 aPTT Coag (Bld) [Time] 48.2 s 24.1-36.2 [facility] No Panel InformationOrdered By: Lali Pimentel on 12-27-2022 Troponin I High Sensitivity 10 pg/mL 3.0-54.0 [facility] Comment on above: Please Note: New Evon t Units and Gender Specific Reference Ranges. For more information see Policy Stat Procedure [place] High Sensitivity Troponin (TNIH) and attachments. Laboratory - CoagulationOrde red By: Alexandra Hagen on 12-19-2022 INR Coag (Bld) [Relative time] 2.8 {INR} [facility] Comment on above: Critical Value > 4.0 Whole blood prothrombin time Ordered By: Alexandra Hagen on 12-19-2022 PT Coag (Bld) [Time] 29.7 s 11.7-14.9 [facility] Absolute lymphocyte countOrd ered By: Alexandra Hagen on 12-09-2022 Lymphocytes Auto (Unsp spec) [#/Vol] 1.65 10*3/uL 0.83-4.51 [facility] Basophil percentageOrdered B y: Alexandra Hagen on 12-09-2022 Basophils/100 WBC (Bld) 0.4 % 0-1 [facility] Chloride [Moles/Vol] 107 mmol/L 98-107 [facility] Eosinophils/100 WBC (Bld) 3.6 % 0-5 [facility] Glucose [Mass/Vol] 125 mg/dL 74-106 [facility] Comment on above: Fasting Glucose resu lt from 100 to 125 mg/dL suggests IMPAIRED HOMEOSTASIS per A.D.A. criteria. Neutrophils (Bld) [#/Vol] 4.3 10*3/uL 2.0-7.7 [facility] Neutrophils/100 WBC (Bld) 61.6 % 47-70 [facility] Potassium [Moles/Vol] 4.8 mmol/L 3.5-5.1 [facility] Sodium [Moles/Vol] 138 mmol/L 136-145 [facility] WBC (Bld) [#/Vol] 7.0 10*3/uL 4.4-11.0 [facility] Blood erythrocytes count (nu mber/volume)Ordered By: Alexandra Hagen on 12-09-2022 RBC (Bld) [#/Vol] 4.30 10*6/uL 4.2-5.4 [facility] Blood hemoglobin measurement (mass/volume)Ordered By: Alexandra Hagen on 12-09-2022 Hemoglobin (Bld) [Mass/Vol] 13.1 g/dL 12.0-15.0 [facility] Blood lymphocytes/100 leukoc ytesOrdered By: Alexandra Hagen on 12-09-2022 Lymphocytes/100 WBC (Bld) 23.7 % 19-41 [facility] Blood monocytes/100 leukocyt esOrdered By: Alexandra Hagen on 12-09-2022 Monocytes/100 WBC (Bld) 10.4 % 0-10 [facility] Blood platelet mean volumeOr dered By: Alexandra Hagen on 12-09-2022 Platelet mean volume (Bld) [Entitic vol] 10.7 fL 6.2-12.0 [facility] Determination of erythrocyte mean corpuscular volume (MCV)Ordered By: Alexandra Hagen on 12-09-2022 MCV (RBC) [Entitic vol] 92.3 fL 81-99 [facility] Hematocrit Auto (Bld) [Volum e fraction]Ordered By: Alexandra Hagen on 12-09-2022 Hematocrit (Bld) [Volume fraction] 39.7 % 37-47 [facility] Laboratory - Chemistry and C hemistry - challengeOrdered By: Alexandra Hagen on 12-09-2022 CO2 [Moles/Vol] 26.0 mmol/L 21.0-32.0 [facility] Urea nitrogen/Creatinine [Mass ratio] 14.4 mg/mg 10-20 [facility] Laboratory - Hematology and Cell countsOrdered By: Alexandra Hagen on 12-09-2022 Erythrocyte distribution width (RBC) [Entitic vol] 44.0 fL 35.1-43.9 [facility] Erythrocyte distribution width (RBC) [Ratio] 13.1 % 11.6-14.6 [facility] Immature granulocytes/100 WBC (Bld) 0.300 % 0.0-0.9 [facility] Comment on above: IG% - Immature Granu locytes (promyelocytes, myelocytes and metamyelocytes) > 1% indicates that a LEFT SHIFT is Present. MCH (RBC) [Entitic mass] 30.5 pg 27.0-32.0 [facility] Nucleated RBC/100 WBC (Bld) [Ratio] 0 % 0-5 [facility] MCHC Auto (RBC) [Mass/Vol]Or dered By: Alexandra Hagen on 12-09-2022 MCHC (RBC) [Mass/Vol] 33.0 g/dL 32-36 [facility] No Panel InformationOrdered By: Alexandra Hagen on 12-09-2022 Estimated GFR (MDRD) Amer 60 mL/min >60 [facility] Comment on above: GFR Calc Estimated GFR (MDRD) Non-Af Amer 49 mL/min >60 [facility] Comment on above: Non- GFR Calc Platelets bldOrdered By: Alexandra Hagen on 12-09-2022 Platelets (Bld) [#/Vol] 293 10*3/uL 150-450 [facility] Serum or plasma calcium viktoria urement (mass/volume)Ordered By: Alexandra Hagen on 12-09-2022 Calcium [Mass/Vol] 8.7 mg/dL 8.5-10.1 [facility] Serum or plasma creatinine m easurement (mass/volume)Ordered By: Alexandra Hagen on 12-09-2022 Creatinine [Mass/Vol] 1.11 mg/dL 0.55-1.02 [facility] Comment on above: The validity of the calculated GFR & GFRAA in patients over 70 years has not been determined. Clinical correlation is essential. Serum or plasma urea nitroge n measurement (mass/volume)Ordered By: Alexandra Hagen on 12-09-2022 Urea nitrogen [Mass/Vol] 16 mg/dL 7-18 [facility] Thin prep Papanicolaou smear with manual screeningOrdered By: Alexandra Hagen on 12-09-2022 Thin prep Papanicolaou smear with manual screening 5 5-15 [facility] Whole blood hemoglobin A1c/t otal hemoglobin ratio (mass fraction)Ordered By: Alexandra Hagen on 12-09-2022 HbA1c (Bld) [Mass fraction] 6.7 % 3.8-5.6 [facility] Comment on above: Normal < 5.7 % Predi abetic 5.7 - 6.4 % Diabetic >or= 6.5 % Please note range changes. Basophil percentageOrdered B y: Alexandra Hagen on 11-20-2022 Bilirubin [Mass/Vol] 0.50 mg/dL 0.20-1.00 [facility] Comment on above: For patients on eltr ombopag therapy, use of Dimension Kimball TBIL is not recommended. Chloride [Moles/Vol] 105 mmol/L 98-107 [facility] Cholesterol [Mass/Vol] 167 mg/dL <200 [facility] Comment on above: <200 mg/dL Desirable 200-240 mg/dL Borderline >240 mg/dL High Risk Glucose [Mass/Vol] 153 mg/dL 74-106 [facility] Comment on above: Fasting Glucose resu lt greater than or equal to 126 mg/dL suggests DIABETES MELLITUS per A.D.A. criteria. Potassium [Moles/Vol] 4.2 mmol/L 3.5-5.1 [facility] Protein [Mass/Vol] 6.7 g/dL 6.4-8.2 [facility] Sodium [Moles/Vol] 138 mmol/L 136-145 [facility] Triglyceride [Mass/Vol] 120 mg/dL <199 [facility] Comment on above: The drugs N-Acetylcy steine and Metamizole may falsely depress this assay.Serum Triglycerides Reference Interval Normal <150 mg/dL Borderline high 150 - 199 mg/dL High 200 - 499 mg/dL Very High > or = 500 mg/dL WBC (Bld) [#/Vol] 7.4 10*3/uL 4.4-11.0 [facility] Blood erythrocytes count (nu mber/volume)Ordered By: Alexandra Hagen on 11-20-2022 RBC (Bld) [#/Vol] 4.37 10*6/uL 4.2-5.4 [facility] Blood hemoglobin measurement (mass/volume)Ordered By: Alexandra Hagen on 11-20-2022 Hemoglobin (Bld) [Mass/Vol] 13.1 g/dL 12.0-15.0 [facility] Blood platelet mean volumeOr dered By: Alexandra Hagen on 11-20-2022 Platelet mean volume (Bld) [Entitic vol] 10.8 fL 6.2-12.0 [facility] Determination of erythrocyte mean corpuscular volume (MCV)Ordered By: Alexandra Hagen on 11-20-2022 MCV (RBC) [Entitic vol] 91.5 fL 81-99 [facility] Hematocrit Auto (Bld) [Volum e fraction]Ordered By: Alexandra Hagen on 11-20-2022 Hematocrit (Bld) [Volume fraction] 40.0 % 37-47 [facility] INR in Blood by Coagulation assayOrdered By: Alexandra Hagen on 11-20-2022 INR Coag (Bld) [Relative time] 2.0 {INR} [facility] Laboratory - Chemistry and C hemistry - challengeOrdered By: Alexandra Hagen on 11-20-2022 ALP [Catalytic activity/Vol] 72 U/L 45-117 [facility] ALT [Catalytic activity/Vol] 13 U/L 13-56 [facility] CO2 [Moles/Vol] 30.0 mmol/L 21.0-32.0 [facility] Globulin (S) [Mass/Vol] 3.6 g/dL 2.2-4.2 [facility] Urea nitrogen/Creatinine [Mass ratio] 12.8 mg/mg 10-20 [facility] Laboratory - CoagulationOrde red By: Alexandra Hagen on 11-20-2022 PT Coag (PPP) [Time] 22.6 s 11.7-14.9 [facility] Laboratory - Hematology and Cell countsOrdered By: Alexandra Hagen on 11-20-2022 Erythrocyte distribution width (RBC) [Entitic vol] 43.4 fL 35.1-43.9 [facility] Erythrocyte distribution width (RBC) [Ratio] 12.9 % 11.6-14.6 [facility] MCH (RBC) [Entitic mass] 30.0 pg 27.0-32.0 [facility] MCHC Auto (RBC) [Mass/Vol]Or dered By: Alexandra Hagen on 11-20-2022 MCHC (RBC) [Mass/Vol] 32.8 g/dL 32-36 [facility] No Panel InformationOrdered By: Alexandra Hagen on 11-20-2022 Estimated GFR (MDRD) Amer 61 mL/min >60 [facility] Comment on above: GFR Calc Estimated GFR (MDRD) Non-Af Amer 50 mL/min >60 [facility] Comment on above: Non- GFR Calc Platelets bldOrdered By: Alexandra Hagen on 11-20-2022 Platelets (Bld) [#/Vol] 310 10*3/uL 150-450 [facility] Serum or plasma albumin viktoria urement (mass/volume)Ordered By: Alexandra Hagen on 11-20-2022 Albumin [Mass/Vol] 3.1 g/dL 3.2-5.0 [facility] Serum or plasma albumin/glob ulin mass ratioOrdered By: Alexandra Hagen on 11-20-2022 Albumin/Globulin [Mass ratio] 0.9 {ratio} 0.9-2.4 [facility] Serum or plasma calcium viktoria urement (mass/volume)Ordered By: Alexandra Hagen on 11-20-2022 Calcium [Mass/Vol] 8.6 mg/dL 8.5-10.1 [facility] Serum or plasma cholesterol in HDL measurement (mass/volume)Ordered By: Alexandra Hagen on 11-20-2022 Cholesterol in HDL [Mass/Vol] 55 mg/dL >40 [facility] Comment on above: The drugs N-Acetylcy steine and Metamizole may falsely depress this assay. Reference Range HDL <40 mg/dL Low HDL Cholesterol HDL >or= 60 mg/dL High HDL Cholesterol Serum or plasma cholesterol in VLDL measurement (mass/volume)Ordered By: Alexandra Hagen on 11-20-2022 Cholesterol in VLDL [Mass/Vol] 24 mg/dL 5-40 [facility] Serum or plasma creatinine m easurement (mass/volume)Ordered By: Alexandra Hagen on 11-20-2022 Creatinine [Mass/Vol] 1.09 mg/dL 0.55-1.02 [facility] Comment on above: The validity of the calculated GFR & GFRAA in patients over 70 years has not been determined. Clinical correlation is essential. Serum or plasma low density lipoprotein (LDL) cholesterol measurement (mass/volume)Ordered By: Alexandra Hagen on 11-20-2022 Cholesterol in LDL [Mass/Vol] 88 mg/dL 0-130 [facility] Serum or plasma urea nitroge n measurement (mass/volume)Ordered By: Alexandra Hagen on 11-20-2022 Urea nitrogen [Mass/Vol] 14 mg/dL 7-18 [facility] Thin prep Papanicolaou smear with manual screeningOrdered By: Alexandra Hagen on 11-20-2022 Thin prep Papanicolaou smear with manual screening 15 U/L 15-37 [facility] Thin prep Papanicolaou smear with manual screening 3 5-15 [facility] Absolute lymphocyte countOrd ered By: Mo Corea on 11-18-2022 Lymphocytes Auto (Unsp spec) [#/Vol] 1.95 10*3/uL 0.83-4.51 [facility] Basophil percentageOrdered B y: Mo Corea on 11-18-2022 Basophil percentage 0-5 SEEN /hpf 0-5 [facility] Basophils/100 WBC (Bld) 0.4 % 0-1 [facility] Bilirubin [Mass/Vol] 0.40 mg/dL 0.20-1.00 [facility] Comment on above: For patients on eltr ombopag therapy, use of Dimension [place] TBIL is not recommended. Chloride [Moles/Vol] 108 mmol/L 98-107 [facility] Eosinophils/100 WBC (Bld) 3.4 % 0-5 [facility] Glucose [Mass/Vol] 126 mg/dL 74-106 [facility] Comment on above: Fasting Glucose resu lt greater than or equal to 126 mg/dL suggests DIABETES MELLITUS per A.D.A. criteria. Neutrophils (Bld) [#/Vol] 4.4 10*3/uL 2.0-7.7 [facility] Neutrophils/100 WBC (Bld) 59.9 % 47-70 [facility] Potassium [Moles/Vol] 3.9 mmol/L 3.5-5.1 [facility] Protein [Mass/Vol] 6.9 g/dL 6.4-8.2 [facility] Sodium [Moles/Vol] 140 mmol/L 136-145 [facility] WBC (Bld) [#/Vol] 7.3 10*3/uL 4.4-11.0 [facility] Bilirubin Test strip Ql (U)O rdered By: Mo Corea on 11-18-2022 Bilirubin Ql (U) Negative Negative [facility] Blood erythrocytes count (nu mber/volume)Ordered By: Mo Corea on 11-18-2022 RBC (Bld) [#/Vol] 4.63 10*6/uL 4.2-5.4 [facility] Blood hemoglobin measurement (mass/volume)Ordered By: Mo Corea on 11-18-2022 Hemoglobin (Bld) [Mass/Vol] 13.9 g/dL 12.0-15.0 [facility] Blood lymphocytes/100 leukoc ytesOrdered By: Mo Corea on 11-18-2022 Lymphocytes/100 WBC (Bld) 26.8 % 19-41 [facility] Blood monocytes/100 leukocyt esOrdered By: Mo Corea on 11-18-2022 Monocytes/100 WBC (Bld) 9.2 % 0-10 [facility] Blood platelet mean volumeOr dered By: Mo Corea on 11-18-2022 Platelet mean volume (Bld) [Entitic vol] 10.5 fL 6.2-12.0 [facility] Determination of erythrocyte mean corpuscular volume (MCV)Ordered By: Mo Corea on 11-18-2022 MCV (RBC) [Entitic vol] 92.4 fL 81-99 [facility] Hematocrit Auto (Bld) [Volum e fraction]Ordered By: Mo Corea on 11-18-2022 Hematocrit (Bld) [Volume fraction] 42.8 % 37-47 [facility] INR in Blood by Coagulation assayOrdered By: Mo Corea on 11-18-2022 INR Coag (Bld) [Relative time] 2.0 {INR} [facility] Ketones Test strip Ql (U)Ord ered By: Mo Corea on 11-18-2022 Ketones Ql (U) Negative Negative [facility] Laboratory - Chemistry and C hemistry - challengeOrdered By: Mo Corea on 11-18-2022 ALP [Catalytic activity/Vol] 76 U/L 45-117 [facility] ALT [Catalytic activity/Vol] 13 U/L 13-56 [facility] CO2 [Moles/Vol] 30.0 mmol/L 21.0-32.0 [facility] Globulin (S) [Mass/Vol] 3.6 g/dL 2.2-4.2 [facility] Urea nitrogen/Creatinine [Mass ratio] 13.6 mg/mg 10-20 [facility] Laboratory - CoagulationOrde red By: Mo Corea on 11-18-2022 aPTT Coag (Bld) [Time] 48.1 s 24.1-36.2 [facility] PT Coag (PPP) [Time] 22.7 s 11.7-14.9 [facility] Laboratory - Hematology and Cell countsOrdered By: Mo Corea on 11-18-2022 Erythrocyte distribution width (RBC) [Entitic vol] 44.2 fL 35.1-43.9 [facility] Erythrocyte distribution width (RBC) [Ratio] 13.1 % 11.6-14.6 [facility] Immature granulocytes/100 WBC (Bld) 0.300 % 0.0-0.9 [facility] Comment on above: IG% - Immature Granu locytes (promyelocytes, myelocytes and metamyelocytes) > 1% indicates that a LEFT SHIFT is Present. MCH (RBC) [Entitic mass] 30.0 pg 27.0-32.0 [facility] Nucleated RBC/100 WBC (Bld) [Ratio] 0 % 0-5 [facility] MCHC Auto (RBC) [Mass/Vol]Or dered By: Mo Corea on 11-18-2022 MCHC (RBC) [Mass/Vol] 32.5 g/dL 32-36 [facility] Mucus LM Ql (Urine sed)Order ed By: Mo Corea on 11-18-2022 Mucus Ql (Urine sed) 0 SEEN /hpf [facility] Nitrite Test strip Ql (U)Ord ered By: Mo Corea on 11-18-2022 Nitrite Ql (U) Negative Negative [facility] No Panel InformationOrdered By: Mo Corea on 11-18-2022 Estimated Creatinine Clearance Calc 31.83 ml/min [facility] Estimated GFR (MDRD) Amer 65 mL/min >60 [facility] Comment on above: GFR Calc Estimated GFR (MDRD) Non-Af Amer 54 mL/min >60 [facility] Comment on above: Non- GFR Calc Platelets bldOrdered By: Rebecca Corea on 11-18-2022 Platelets (Bld) [#/Vol] 289 10*3/uL 150-450 [facility] Protein Test strip Ql (U)Ord ered By: Mo Corea on 11-18-2022 Protein Ql (U) 15 mg/dl Negative [facility] Serum or plasma albumin viktoria urement (mass/volume)Ordered By: Mo Corea on 11-18-2022 Albumin [Mass/Vol] 3.3 g/dL 3.2-5.0 [facility] Serum or plasma albumin/glob ulin mass ratioOrdered By: Mo Corea on 11-18-2022 Albumin/Globulin [Mass ratio] 0.9 {ratio} 0.9-2.4 [facility] Serum or plasma calcium viktoria urement (mass/volume)Ordered By: Mo Corea on 11-18-2022 Calcium [Mass/Vol] 8.7 mg/dL 8.5-10.1 [facility] Serum or plasma creatinine m easurement (mass/volume)Ordered By: oM Corea on 11-18-2022 Creatinine [Mass/Vol] 1.03 mg/dL 0.55-1.02 [facility] Comment on above: The validity of the calculated GFR & GFRAA in patients over 70 years has not been determined. Clinical correlation is essential. Serum or plasma urea nitroge n measurement (mass/volume)Ordered By: Mo Corea on 11-18-2022 Urea nitrogen [Mass/Vol] 14 mg/dL 7-18 [facility] Squamous epithelial cells de tection in urine sediment by light microscopyOrdered By: Mo Corea on 11-18-2022 Epithelial cells.squamous LM Ql (Urine sed) 0-5 SEEN /hpf 5-10 [facility] Thin prep Papanicolaou smear with manual screeningOrdered By: Mo Corea on 11-18-2022 Thin prep Papanicolaou smear with manual screening 15 U/L 15-37 [facility] Thin prep Papanicolaou smear with manual screening 2 5-15 [facility] Urine blood detectionOrdered By: Mo Corea on 11-18-2022 RBC Ql (U) Negative Negative [facility] RBC Ql (U) 0 SEEN /hpf 0-5 [facility] Urine clarityOrdered By: Rebecca Corea on 11-18-2022 Clarity (U) Sl. Cloudy Clear [facility] Urine color determinationOrd ered By: Mo Corea on 11-18-2022 Color (U) Yellow Yellow [facility] Urine glucose detectionOrder ed By: Mo Corea on 11-18-2022 Glucose Ql (U) Normal mg/dl Normal [facility] Urine leukocyte esterase det ection by dipstickOrdered By: Mo Corea on 11-18-2022 Leukocyte esterase Test strip Ql (U) 25 /ul Negative [facility] Urine pHOrdered By: Mo amado on 11-18-2022 pH (U) 7.0 [pH] 5.0 - 8.0 [facility] Urine sediment bacteria coun t by microscopy (number/high power field)Ordered By: Mo Corea on 11-18-2022 Bacteria LM.HPF (Urine sed) [#/Area] 0 /[HPF] None Seen [facility] Urine specific gravity measu rementOrdered By: Mo Corea on 11-18-2022 Specific gravity (U) [Rel density] 1.010 1.002-1.030 [facility] Urobilinogen Auto test strip Ql (U)Ordered By: Mo Corea on 11-18-2022 Urobilinogen Ql (U) Normal mg/dl Normal [facility] Absolute lymphocyte countOrd ered By: Sae Carballo on 11-15-2022 Lymphocytes Auto (Unsp spec) [#/Vol] 2.03 10*3/uL 0.83-4.51 [facility] Basophil percentageOrdered B y: Sae Kait on 11-15-2022 Basophils/100 WBC (Bld) 0.5 % 0-1 [facility] Chloride [Moles/Vol] 107 mmol/L 98-107 [facility] Cholesterol [Mass/Vol] 164 mg/dL <200 [facility] Comment on above: <200 mg/dL Desirable 200-240 mg/dL Borderline >240 mg/dL High Risk Eosinophils/100 WBC (Bld) 3.5 % 0-5 [facility] Glucose [Mass/Vol] 124 mg/dL 74-106 [facility] Comment on above: Fasting Glucose resu lt from 100 to 125 mg/dL suggests IMPAIRED HOMEOSTASIS per A.D.A. criteria. Neutrophils (Bld) [#/Vol] 4.7 10*3/uL 2.0-7.7 [facility] Neutrophils/100 WBC (Bld) 60.3 % 47-70 [facility] Potassium [Moles/Vol] 4.1 mmol/L 3.5-5.1 [facility] Sodium [Moles/Vol] 139 mmol/L 136-145 [facility] Triglyceride [Mass/Vol] 133 mg/dL <199 [facility] Comment on above: The drugs N-Acetylcy steine and Metamizole may falsely depress this assay.Serum Triglycerides Reference Interval Normal <150 mg/dL Borderline high 150 - 199 mg/dL High 200 - 499 mg/dL Very High > or = 500 mg/dL WBC (Bld) [#/Vol] 7.8 10*3/uL 4.4-11.0 [facility] Blood erythrocytes count (nu mber/volume)Ordered By: Sae Carballo on 11-15-2022 RBC (Bld) [#/Vol] 4.32 10*6/uL 4.2-5.4 [facility] Blood hemoglobin measurement (mass/volume)Ordered By: Sae Carballo on 11-15-2022 Hemoglobin (Bld) [Mass/Vol] 12.9 g/dL 12.0-15.0 [facility] Blood lymphocytes/100 leukoc ytesOrdered By: Sae Carballo on 11-15-2022 Lymphocytes/100 WBC (Bld) 26.2 % 19-41 [facility] Blood monocytes/100 leukocyt esOrdered By: Sae Carballo on 11-15-2022 Monocytes/100 WBC (Bld) 9.4 % 0-10 [facility] Blood platelet mean volumeOr dered By: Sae Carballo on 11-15-2022 Platelet mean volume (Bld) [Entitic vol] 10.6 fL 6.2-12.0 [facility] Determination of erythrocyte mean corpuscular volume (MCV)Ordered By: Sae Carballo on 11-15-2022 MCV (RBC) [Entitic vol] 91.7 fL 81-99 [facility] Hematocrit Auto (Bld) [Volum e fraction]Ordered By: Sae Carballo on 11-15-2022 Hematocrit (Bld) [Volume fraction] 39.6 % 37-47 [facility] INR in Blood by Coagulation assayOrdered By: Sae Carballo on 11-15-2022 INR Coag (Bld) [Relative time] 2.0 {INR} [facility] Laboratory - Chemistry and C hemistry - challengeOrdered By: Sae Carballo on 11-15-2022 CO2 [Moles/Vol] 25.0 mmol/L 21.0-32.0 [facility] Urea nitrogen/Creatinine [Mass ratio] 15.8 mg/mg 10-20 [facility] Laboratory - CoagulationOrde red By: Sae Carballo on 11-15-2022 PT Coag (PPP) [Time] 23.0 s 11.7-14.9 [facility] Laboratory - Hematology and Cell countsOrdered By: Sae Carballo on 11-15-2022 Erythrocyte distribution width (RBC) [Entitic vol] 43.4 fL 35.1-43.9 [facility] Erythrocyte distribution width (RBC) [Ratio] 12.9 % 11.6-14.6 [facility] Immature granulocytes/100 WBC (Bld) 0.100 % 0.0-0.9 [facility] Comment on above: IG% - Immature Granu locytes (promyelocytes, myelocytes and metamyelocytes) > 1% indicates that a LEFT SHIFT is Present. MCH (RBC) [Entitic mass] 29.9 pg 27.0-32.0 [facility] Nucleated RBC/100 WBC (Bld) [Ratio] 0 % 0-5 [facility] MCHC Auto (RBC) [Mass/Vol]Or dered By: Sae Carballo on 11-15-2022 MCHC (RBC) [Mass/Vol] 32.6 g/dL 32-36 [facility] No Panel InformationOrdered By: Sae Carballo on 11-15-2022 Estimated Creatinine Clearance Calc 37.26 ml/min [facility] Estimated GFR (MDRD) Amer 78 mL/min >60 [facility] Comment on above: GFR Calc Estimated GFR (MDRD) Non-Af Amer 64 mL/min >60 [facility] Comment on above: Non- GFR Calc Platelets bldOrdered By: Ramos Carballo on 11-15-2022 Platelets (Bld) [#/Vol] 278 10*3/uL 150-450 [facility] Serum or plasma calcium viktoria urement (mass/volume)Ordered By: Sae Carballo on 11-15-2022 Calcium [Mass/Vol] 8.5 mg/dL 8.5-10.1 [facility] Serum or plasma cholesterol in HDL measurement (mass/volume)Ordered By: Sae Carballo on 11-15-2022 Cholesterol in HDL [Mass/Vol] 49 mg/dL >40 [facility] Comment on above: The drugs N-Acetylcy steine and Metamizole may falsely depress this assay. Reference Range HDL <40 mg/dL Low HDL Cholesterol HDL >or= 60 mg/dL High HDL Cholesterol Serum or plasma cholesterol in VLDL measurement (mass/volume)Ordered By: Sae Carballo on 11-15-2022 Cholesterol in VLDL [Mass/Vol] 27 mg/dL 5-40 [facility] Serum or plasma creatinine m easurement (mass/volume)Ordered By: Sae Carballo on 11-15-2022 Creatinine [Mass/Vol] 0.88 mg/dL 0.55-1.02 [facility] Comment on above: The validity of the calculated GFR & GFRAA in patients over 70 years has not been determined. Clinical correlation is essential. Serum or plasma low density lipoprotein (LDL) cholesterol measurement (mass/volume)Ordered By: Sae Carballo on 11-15-2022 Cholesterol in LDL [Mass/Vol] 88 mg/dL 0-130 [facility] [facility] Serum or plasma urea nitroge n measurement (mass/volume)Ordered By: Sae Carballo on 11-15-2022 Urea nitrogen [Mass/Vol] 14 mg/dL 7-18 [facility] Thin prep Papanicolaou smear with manual screeningOrdered By: Sae Carballo on 11-15-2022 Thin prep Papanicolaou smear with manual screening 7 5-15 [facility] Absolute lymphocyte countOrd ered By: Neri Mitchell on 11-14-2022 Lymphocytes Auto (Unsp spec) [#/Vol] 2.35 10*3/uL 0.83-4.51 [facility] Basophil percentageOrdered B y: Neri Mitchell on 11-14-2022 Basophils/100 WBC (Bld) 0.6 % 0-1 [facility] Chloride [Moles/Vol] 104 mmol/L 98-107 [facility] Eosinophils/100 WBC (Bld) 2.4 % 0-5 [facility] Glucose [Mass/Vol] 135 mg/dL 74-106 [facility] Comment on above: Fasting Glucose resu lt greater than or equal to 126 mg/dL suggests DIABETES MELLITUS per A.D.A. criteria. Neutrophils (Bld) [#/Vol] 6.0 10*3/uL 2.0-7.7 [facility] Neutrophils/100 WBC (Bld) 64.0 % 47-70 [facility] Potassium [Moles/Vol] 4.0 mmol/L 3.5-5.1 [facility] Sodium [Moles/Vol] 138 mmol/L 136-145 [facility] WBC (Bld) [#/Vol] 9.4 10*3/uL 4.4-11.0 [facility] Blood erythrocytes count (nu mber/volume)Ordered By: Neri Mitchell on 11-14-2022 RBC (Bld) [#/Vol] 4.79 10*6/uL 4.2-5.4 [facility] Blood hemoglobin measurement (mass/volume)Ordered By: Neri Mitchell on 11-14-2022 Hemoglobin (Bld) [Mass/Vol] 14.3 g/dL 12.0-15.0 [facility] Blood lymphocytes/100 leukoc ytesOrdered By: Neri Mitchell on 11-14-2022 Lymphocytes/100 WBC (Bld) 24.9 % 19-41 [facility] Blood monocytes/100 leukocyt esOrdered By: Neri Mitchell on 11-14-2022 Monocytes/100 WBC (Bld) 7.8 % 0-10 [facility] Blood platelet mean volumeOr dered By: Neri Mitchell on 11-14-2022 Platelet mean volume (Bld) [Entitic vol] 10.6 fL 6.2-12.0 [facility] Determination of erythrocyte mean corpuscular volume (MCV)Ordered By: Neri Mitchell on 11-14-2022 MCV (RBC) [Entitic vol] 93.5 fL 81-99 [facility] Glucose Glucometer (dC) [M ass/Vol]Ordered By: Neri Mitchell on 11-14-2022 Glucose [Mass/Vol] 136 mg/dL 74-106 [facility] Comment on above: MANAGEMENT OF PATIEN T CARE PER NURSING PROTOCOL Hematocrit Auto (Bld) [Volum e fraction]Ordered By: Neri Mitchell on 11-14-2022 Hematocrit (Bld) [Volume fraction] 44.8 % 37-47 [facility] INR in Blood by Coagulation assayOrdered By: Neri Mitchell on 11-14-2022 INR Coag (Bld) [Relative time] 1.8 {INR} [facility] Laboratory - Chemistry and C hemistry - challengeOrdered By: Neri Mitchell on 11-14-2022 CO2 [Moles/Vol] 28.0 mmol/L 21.0-32.0 [facility] Urea nitrogen/Creatinine [Mass ratio] 12.3 mg/mg 10-20 [facility] Laboratory - CoagulationOrde red By: Neri Mitchell on 11-14-2022 aPTT Coag (Bld) [Time] 43.3 s 24.1-36.2 [facility] PT Coag (PPP) [Time] 21.3 s 11.7-14.9 [facility] Laboratory - Hematology and Cell countsOrdered By: Neri Mitchell on 11-14-2022 Erythrocyte distribution width (RBC) [Entitic vol] 44.7 fL 35.1-43.9 [facility] Erythrocyte distribution width (RBC) [Ratio] 13.0 % 11.6-14.6 [facility] Immature granulocytes/100 WBC (Bld) 0.300 % 0.0-0.9 [facility] Comment on above: IG% - Immature Granu locytes (promyelocytes, myelocytes and metamyelocytes) > 1% indicates that a LEFT SHIFT is Present. MCH (RBC) [Entitic mass] 29.9 pg 27.0-32.0 [facility] Nucleated RBC/100 WBC (Bld) [Ratio] 0 % 0-5 [facility] MCHC Auto (RBC) [Mass/Vol]Or dered By: Neri Mitchell on 11-14-2022 MCHC (RBC) [Mass/Vol] 31.9 g/dL 32-36 [facility] No Panel InformationOrdered By: Neri Mitchell on 11-14-2022 Estimated Creatinine Clearance Calc 28.76 ml/min [facility] Estimated GFR (MDRD) Amer 58 mL/min >60 [facility] Comment on above: GFR Calc Estimated GFR (MDRD) Non-Af Amer 48 mL/min >60 [facility] Comment on above: Non- GFR Calc Troponin I High Sensitivity 10 pg/mL 3.0-54.0 [facility] Comment on above: Please Note: New Evon t Units and Gender Specific Reference Ranges. For more information see Policy Stat Procedure [place] High Sensitivity Troponin (TNIH) and attachments. Platelets bldOrdered By: Prasad Mitchell on 11-14-2022 Platelets (Bld) [#/Vol] 313 10*3/uL 150-450 [facility] Serum or plasma calcium viktoria urement (mass/volume)Ordered By: Neri Mitchell on 11-14-2022 Calcium [Mass/Vol] 9.0 mg/dL 8.5-10.1 [facility] Serum or plasma creatinine m easurement (mass/volume)Ordered By: Neri Mitchell on 11-14-2022 Creatinine [Mass/Vol] 1.14 mg/dL 0.55-1.02 [facility] Comment on above: The validity of the calculated GFR & GFRAA in patients over 70 years has not been determined. Clinical correlation is essential. Serum or plasma urea nitroge n measurement (mass/volume)Ordered By: Neri Mitchell on 11-14-2022 Urea nitrogen [Mass/Vol] 14 mg/dL 7-18 [facility] Thin prep Papanicolaou smear with manual screeningOrdered By: Neri Mitchell on 11-14-2022 Thin prep Papanicolaou smear with manual screening 6 - [facility] INR in Blood by Coagulation assayOrdered By: Dr. Juarez on 09-18-2022 INR Coag (Bld) [Relative time] 1.8 {INR} [facility] Laboratory - CoagulationOrde red By: Dr. Juarez on 09-18-2022 PT Coag (PPP) [Time] 20.9 s 11.7-14.9 [facility] No Panel InformationOrdered By: Anant Juarez on 09-18-2022 Free Lambda Light Chains, Quant 15.7 mg/L 5.7-26.3 [facility] Whole Blood Vitamin B1 Level 111.8 nmol/L 66.5-200.0 [facility] Comment on above: Performed at: - [address] [id number] Director: Master Vee PhD, Phone: [phone] at: - [facility] [id number] Director: Brandon Wells MD, Phone: [phone] Serum immunoglobulin kappa l ight chains/immunoglobulin lambda light chains mass ratioOrdered By: Anant Juarez on 09-18-2022 Immunoglobulin light chains.kappa/Immunoglobul in light chains.lambda (S) [Mass ratio] 1.74 0.26-1.65 [facility] Serum or plasma folate measu rement (mass/volume)Ordered By: Dr. Juarez on 09-18-2022 Folate [Mass/Vol] 51.90 ng/mL 3.1-55.4 [facility] Comment on above: Slight Hemolysis, Re sult may be falsely increased. Serum or plasma immunoglobul in kappa light chains measurement (mass/volume)Ordered By: Anant Juarez on 09-18-2022 Immunoglobulin light chains.kappa [Mass/Vol] 27.3 mg/L 3.3-19.4 [facility] Culture, urineOrdered By: Slim Doran on 09-17-2022 Bacteria identified Cx Nom (U) Streptococcus agalactiae (B) [facility] INR in Blood by Coagulation assayOrdered By: Dr. Doran on 09-13-2022 INR Coag (Bld) [Relative time] 1.5 {INR} [facility] Laboratory - CoagulationOrde red By: Dr. Doran on 09-13-2022 PT Coag (PPP) [Time] 18.1 s 11.7-14.9 [facility] Absolute lymphocyte countOrd ered By: Dr. Barcenas on 09-08-2022 Lymphocytes Auto (Unsp spec) [#/Vol] 2.60 10*3/uL 0.83-4.51 [facility] Basophil percentageOrdered B y: Dr. Barcenas on 09-08-2022 Basophil percentage 0 SEEN /hpf 0-5 [facility] Basophils/100 WBC (Bld) 0.4 % 0-1 [facility] Bilirubin [Mass/Vol] 0.30 mg/dL 0.20-1.00 [facility] Comment on above: For patients on eltr ombopag therapy, use of Dimension [place] TBIL is not recommended. Chloride [Moles/Vol] 103 mmol/L 98-107 [facility] Eosinophils/100 WBC (Bld) 2.3 % 0-5 [facility] Glucose [Mass/Vol] 78 mg/dL 74-106 [facility] Neutrophils (Bld) [#/Vol] 5.2 10*3/uL 2.0-7.7 [facility] Neutrophils/100 WBC (Bld) 57.4 % 47-70 [facility] Potassium [Moles/Vol] 3.8 mmol/L 3.5-5.1 [facility] Protein [Mass/Vol] 6.9 g/dL 6.4-8.2 [facility] Sodium [Moles/Vol] 139 mmol/L 136-145 [facility] WBC (Bld) [#/Vol] 9.1 10*3/uL 4.4-11.0 [facility] Bilirubin Test strip Ql (U)O rdered By: Dr. Barcenas on 09-08-2022 Bilirubin Ql (U) Negative Negative [facility] Blood erythrocytes count (nu mber/volume)Ordered By: Dr. Barcenas on 09-08-2022 RBC (Bld) [#/Vol] 4.48 10*6/uL 4.2-5.4 [facility] Blood hemoglobin measurement (mass/volume)Ordered By: Dr. Barcenas on 09-08-2022 Hemoglobin (Bld) [Mass/Vol] 13.4 g/dL 12.0-15.0 [facility] Blood lymphocytes/100 leukoc ytesOrdered By: Dr. Barcenas on 09-08-2022 Lymphocytes/100 WBC (Bld) 28.5 % 19-41 [facility] Blood monocytes/100 leukocyt esOrdered By: Dr. Barcenas on 09-08-2022 Monocytes/100 WBC (Bld) 11.1 % 0-10 [facility] Blood platelet mean volumeOr dered By: Dr. Barcenas on 09-08-2022 Platelet mean volume (Bld) [Entitic vol] 10.7 fL 6.2-12.0 [facility] Determination of erythrocyte mean corpuscular volume (MCV)Ordered By: Dr. Barcenas on 09-08-2022 MCV (RBC) [Entitic vol] 92.4 fL 81-99 [facility] Hematocrit Auto (Bld) [Volum e fraction]Ordered By: Dr. Barcenas on 09-08-2022 Hematocrit (Bld) [Volume fraction] 41.4 % 37-47 [facility] INR in Blood by Coagulation assayOrdered By: Dr. Barcenas on 09-08-2022 INR Coag (Bld) [Relative time] 1.0 {INR} [facility] Ketones Test strip Ql (U)Ord ered By: Dr. Barcenas on 09-08-2022 Ketones Ql (U) Negative Negative [facility] Laboratory - Chemistry and C hemistry - challengeOrdered By: Dr. Barcenas on 09-08-2022 ALP [Catalytic activity/Vol] 71 U/L 45-117 [facility] ALT [Catalytic activity/Vol] 9 U/L 13-56 [facility] CO2 [Moles/Vol] 30.0 mmol/L 21.0-32.0 [facility] Globulin (S) [Mass/Vol] 3.7 g/dL 2.2-4.2 [facility] Urea nitrogen/Creatinine [Mass ratio] 17.1 mg/mg 10-20 [facility] Laboratory - CoagulationOrde red By: Dr. Barcenas on 09-08-2022 PT Coag (PPP) [Time] 13.6 s 11.7-14.9 [facility] Laboratory - Hematology and Cell countsOrdered By: Dr. Barcenas on 09-08-2022 Erythrocyte distribution width (RBC) [Entitic vol] 44.8 fL 35.1-43.9 [facility] Erythrocyte distribution width (RBC) [Ratio] 13.2 % 11.6-14.6 [facility] Immature granulocytes/100 WBC (Bld) 0.300 % 0.0-0.9 [facility] Comment on above: IG% - Immature Granu locytes (promyelocytes, myelocytes and metamyelocytes) > 1% indicates that a LEFT SHIFT is Present. MCH (RBC) [Entitic mass] 29.9 pg 27.0-32.0 [facility] Nucleated RBC/100 WBC (Bld) [Ratio] 0 % 0-5 [facility] MCHC Auto (RBC) [Mass/Vol]Or dered By: Dr. Barcenas on 09-08-2022 MCHC (RBC) [Mass/Vol] 32.4 g/dL 32-36 [facility] Mucus LM Ql (Urine sed)Order ed By: Dr. Barcenas on 09-08-2022 Mucus Ql (Urine sed) 0 SEEN /hpf [facility] Nitrite Test strip Ql (U)Ord ered By: Dr. Barcenas on 09-08-2022 Nitrite Ql (U) Negative Negative [facility] No Panel InformationOrdered By: Dr. Barcenas on 09-08-2022 Estimated Creatinine Clearance Calc 31.23 ml/min [facility] Estimated GFR (MDRD) Amer 64 mL/min >60 [facility] Comment on above: GFR Calc Estimated GFR (MDRD) Non-Af Amer 53 mL/min >60 [facility] Comment on above: Non- GFR Calc Troponin I High Sensitivity 86 pg/mL 3.0-54.0 [facility] Comment on above: Please Note: New Evon t Units and Gender Specific Reference Ranges. For more information see Policy Stat Procedure [place] High Sensitivity Troponin (TNIH) and attachments. Platelets bldOrdered By: Dr. Barcenas on 09-08-2022 Platelets (Bld) [#/Vol] 294 10*3/uL 150-450 [facility] Protein Test strip Ql (U)Ord ered By: Dr. Barcenas on 09-08-2022 Protein Ql (U) Negative Negative [facility] Serum or plasma albumin viktoria urement (mass/volume)Ordered By: Dr. Barcenas on 09-08-2022 Albumin [Mass/Vol] 3.2 g/dL 3.2-5.0 [facility] Serum or plasma albumin/glob ulin mass ratioOrdered By: Dr. Barcenas on 09-08-2022 Albumin/Globulin [Mass ratio] 0.9 {ratio} 0.9-2.4 [facility] Serum or plasma calcium viktoria urement (mass/volume)Ordered By: Dr. Barcenas on 09-08-2022 Calcium [Mass/Vol] 8.8 mg/dL 8.5-10.1 [facility] Serum or plasma creatinine m easurement (mass/volume)Ordered By: Dr. Barcenas on 09-08-2022 Creatinine [Mass/Vol] 1.05 mg/dL 0.55-1.02 [facility] Comment on above: The validity of the calculated GFR & GFRAA in patients over 70 years has not been determined. Clinical correlation is essential. Serum or plasma urea nitroge n measurement (mass/volume)Ordered By: Dr. Barcenas on 09-08-2022 Urea nitrogen [Mass/Vol] 18 mg/dL 7-18 [facility] Squamous epithelial cells de tection in urine sediment by light microscopyOrdered By: Dr. Barcenas on 09-08-2022 Epithelial cells.squamous LM Ql (Urine sed) 0-5 SEEN /hpf 5-10 [facility] Thin prep Papanicolaou smear with manual screeningOrdered By: Dr. Barcenas on 09-08-2022 Thin prep Papanicolaou smear with manual screening 9 U/L 15-37 [facility] Thin prep Papanicolaou smear with manual screening 6 5-15 [facility] Urine blood detectionOrdered By: Dr. Barcenas on 09-08-2022 RBC Ql (U) Negative Negative [facility] RBC Ql (U) 0 SEEN /hpf 0-5 [facility] Urine clarityOrdered By: Dr. Barcenas on 09-08-2022 Clarity (U) Clear Clear [facility] Urine color determinationOrd ered By: Dr. Barcenas on 09-08-2022 Color (U) Yellow Yellow [facility] Urine glucose detectionOrder ed By: Dr. Barcenas on 09-08-2022 Glucose Ql (U) Normal mg/dl Normal [facility] Urine leukocyte esterase det ection by dipstickOrdered By: Dr. Barcenas on 09-08-2022 Leukocyte esterase Test strip Ql (U) Negative Negative [facility] Urine pHOrdered By: Dr. Moody leal on 09-08-2022 pH (U) 6.5 [pH] 5.0 - 8.0 [facility] Urine sediment bacteria coun t by microscopy (number/high power field)Ordered By: Dr. Barcenas on 09-08-2022 Bacteria LM.HPF (Urine sed) [#/Area] 0 /[HPF] None Seen [facility] Urine specific gravity measu rementOrdered By: Dr. Barcenas on 09-08-2022 Specific gravity (U) [Rel density] 1.010 1.002-1.030 [facility] Urobilinogen Auto test strip Ql (U)Ordered By: Dr. Barcenas on 09-08-2022 Urobilinogen Ql (U) Normal mg/dl Normal [facility] Absolute lymphocyte countOrd ered By: Dr. Doran on 09-05-2022 Lymphocytes Auto (Unsp spec) [#/Vol] 1.27 10*3/uL 0.83-4.51 [facility] Basophil percentageOrdered B y: Dr. Doran on 09-05-2022 Basophils/100 WBC (Bld) 0.4 % 0-1 [facility] Chloride [Moles/Vol] 106 mmol/L 98-107 [facility] Eosinophils/100 WBC (Bld) 1.0 % 0-5 [facility] Glucose [Mass/Vol] 202 mg/dL 74-106 [facility] Comment on above: Glucose result great er than or equal to 200 mg/dLsuggests DIABETES MELLITUS per A.D.A. criteria. Neutrophils (Bld) [#/Vol] 8.3 10*3/uL 2.0-7.7 [facility] Neutrophils/100 WBC (Bld) 79.7 % 47-70 [facility] Potassium [Moles/Vol] 3.7 mmol/L 3.5-5.1 [facility] Sodium [Moles/Vol] 139 mmol/L 136-145 [facility] WBC (Bld) [#/Vol] 10.4 10*3/uL 4.4-11.0 [facility] Blood erythrocytes count (nu mber/volume)Ordered By: Dr. Doran on 09-05-2022 RBC (Bld) [#/Vol] 4.72 10*6/uL 4.2-5.4 [facility] Blood hemoglobin measurement (mass/volume)Ordered By: Dr. Doran on 09-05-2022 Hemoglobin (Bld) [Mass/Vol] 14.1 g/dL 12.0-15.0 [facility] Blood lymphocytes/100 leukoc ytesOrdered By: Dr. Doran on 09-05-2022 Lymphocytes/100 WBC (Bld) 12.3 % 19-41 [facility] Blood monocytes/100 leukocyt esOrdered By: Dr. Doran on 09-05-2022 Monocytes/100 WBC (Bld) 6.3 % 0-10 [facility] Blood platelet mean volumeOr dered By: Dr. Doran on 09-05-2022 Platelet mean volume (Bld) [Entitic vol] 11.2 fL 6.2-12.0 [facility] Determination of erythrocyte mean corpuscular volume (MCV)Ordered By: Dr. Doran on 09-05-2022 MCV (RBC) [Entitic vol] 93.9 fL 81-99 [facility] Hematocrit Auto (Bld) [Volum e fraction]Ordered By: Dr. Doran on 09-05-2022 Hematocrit (Bld) [Volume fraction] 44.3 % 37-47 [facility] INR in Blood by Coagulation assayOrdered By: Dr. Doran on 09-05-2022 INR Coag (Bld) [Relative time] 1.1 {INR} [facility] Laboratory - Chemistry and C hemistry - challengeOrdered By: Dr. Doran on 09-05-2022 CO2 [Moles/Vol] 24.0 mmol/L 21.0-32.0 [facility] Urea nitrogen/Creatinine [Mass ratio] 18.3 mg/mg 10-20 [facility] Laboratory - CoagulationOrde red By: Dr. Doran on 09-05-2022 PT Coag (PPP) [Time] 13.8 s 11.7-14.9 [facility] Laboratory - Hematology and Cell countsOrdered By: Dr. Doran on 09-05-2022 Erythrocyte distribution width (RBC) [Entitic vol] 45.5 fL 35.1-43.9 [facility] Erythrocyte distribution width (RBC) [Ratio] 13.2 % 11.6-14.6 [facility] Immature granulocytes/100 WBC (Bld) 0.300 % 0.0-0.9 [facility] Comment on above: IG% - Immature Granu locytes (promyelocytes, myelocytes and metamyelocytes) > 1% indicates that a LEFT SHIFT is Present. MCH (RBC) [Entitic mass] 29.9 pg 27.0-32.0 [facility] Nucleated RBC/100 WBC (Bld) [Ratio] 0 % 0-5 [facility] MCHC Auto (RBC) [Mass/Vol]Or dered By: Dr. Doran on 09-05-2022 MCHC (RBC) [Mass/Vol] 31.8 g/dL 32-36 [facility] No Panel InformationOrdered By: Dr. Doran on 09-05-2022 Estimated GFR (MDRD) Amer 61 mL/min >60 [facility] Comment on above: GFR Calc Estimated GFR (MDRD) Non-Af Amer 50 mL/min >60 [facility] Comment on above: Non- GFR Calc Thyroid Stimulating Hormone (TSH) 2.84 uIU/mL 0.358-3.74 [facility] Platelets bldOrdered By: Dr. Doran on 09-05-2022 Platelets (Bld) [#/Vol] 311 10*3/uL 150-450 [facility] Serum or plasma calcium viktoria urement (mass/volume)Ordered By: Dr. Doran on 09-05-2022 Calcium [Mass/Vol] 8.8 mg/dL 8.5-10.1 [facility] Serum or plasma creatinine m easurement (mass/volume)Ordered By: Dr. Doran on 09-05-2022 Creatinine [Mass/Vol] 1.09 mg/dL 0.55-1.02 [facility] Comment on above: The validity of the calculated GFR & GFRAA in patients over 70 years has not been determined. Clinical correlation is essential. Serum or plasma urea nitroge n measurement (mass/volume)Ordered By: Dr. Doran on 09-05-2022 Urea nitrogen [Mass/Vol] 20 mg/dL 7-18 [facility] Thin prep Papanicolaou smear with manual screeningOrdered By: Dr. Doran on 09-05-2022 Thin prep Papanicolaou smear with manual screening 9 5-15 [facility] Absolute lymphocyte countOrd ered By: Dr. Doran on 08-08-2022 Lymphocytes Auto (Unsp spec) [#/Vol] 1.97 10*3/uL 0.83-4.51 [facility] Basophil percentageOrdered B y: Dr. Doran on 08-08-2022 Basophils/100 WBC (Bld) 0.5 % 0-1 [facility] Chloride [Moles/Vol] 105 mmol/L 98-107 [facility] Eosinophils/100 WBC (Bld) 3.2 % 0-5 [facility] Glucose [Mass/Vol] 147 mg/dL 74-106 [facility] Comment on above: Fasting Glucose resu lt greater than or equal to 126 mg/dL suggests DIABETES MELLITUS per A.D.A. criteria. Neutrophils (Bld) [#/Vol] 4.6 10*3/uL 2.0-7.7 [facility] Neutrophils/100 WBC (Bld) 60.9 % 47-70 [facility] Potassium [Moles/Vol] 4.9 mmol/L 3.5-5.1 [facility] Sodium [Moles/Vol] 140 mmol/L 136-145 [facility] WBC (Bld) [#/Vol] 7.5 10*3/uL 4.4-11.0 [facility] Blood erythrocytes count (nu mber/volume)Ordered By: Dr. Doran on 08-08-2022 RBC (Bld) [#/Vol] 4.73 10*6/uL 4.2-5.4 [facility] Blood hemoglobin measurement (mass/volume)Ordered By: Dr. Doran on 08-08-2022 Hemoglobin (Bld) [Mass/Vol] 14.0 g/dL 12.0-15.0 [facility] Blood lymphocytes/100 leukoc ytesOrdered By: Dr. Doran on 08-08-2022 Lymphocytes/100 WBC (Bld) 26.2 % 19-41 [facility] Blood monocytes/100 leukocyt esOrdered By: Dr. Doran on 08-08-2022 Monocytes/100 WBC (Bld) 8.8 % 0-10 [facility] Blood platelet mean volumeOr dered By: Dr. Doran on 08-08-2022 Platelet mean volume (Bld) [Entitic vol] 10.9 fL 6.2-12.0 [facility] Determination of erythrocyte mean corpuscular volume (MCV)Ordered By: Dr. Doran on 08-08-2022 MCV (RBC) [Entitic vol] 94.1 fL 81-99 [facility] Hematocrit Auto (Bld) [Volum e fraction]Ordered By: Dr. Doran on 08-08-2022 Hematocrit (Bld) [Volume fraction] 44.5 % 37-47 [facility] Laboratory - Chemistry and C hemistry - challengeOrdered By: Dr. Doran on 08-08-2022 CO2 [Moles/Vol] 29.0 mmol/L 21.0-32.0 [facility] Cobalamin (Vitamin B12) [Mass/Vol] 853 pg/mL 211-911 [facility] Urea nitrogen/Creatinine [Mass ratio] 18.3 mg/mg 10-20 [facility] Laboratory - Hematology and Cell countsOrdered By: Dr. Doran on 08-08-2022 Erythrocyte distribution width (RBC) [Entitic vol] 45.5 fL 35.1-43.9 [facility] Erythrocyte distribution width (RBC) [Ratio] 13.2 % 11.6-14.6 [facility] Immature granulocytes/100 WBC (Bld) 0.400 % 0.0-0.9 [facility] Comment on above: IG% - Immature Granu locytes (promyelocytes, myelocytes and metamyelocytes) > 1% indicates that a LEFT SHIFT is Present. MCH (RBC) [Entitic mass] 29.6 pg 27.0-32.0 [facility] Nucleated RBC/100 WBC (Bld) [Ratio] 0 % 0-5 [facility] MCHC Auto (RBC) [Mass/Vol]Or dered By: Dr. Doran on 08-08-2022 MCHC (RBC) [Mass/Vol] 31.5 g/dL 32-36 [facility] No Panel InformationOrdered By: Dr. Doran on 08-08-2022 Estimated GFR (MDRD) Amer 57 mL/min >60 [facility] Comment on above: GFR Calc Estimated GFR (MDRD) Non-Af Amer 47 mL/min >60 [facility] Comment on above: Non- GFR Calc Vitamin D 25-Hydroxy 35.5 ng/mL [facility] Comment on above: Vitamin D 25(OH) Sta tus Range Deficiency <20 ng/mL (50nmol/L) Insufficiency 20 - 30 ng/mL (50 - 75 nmol/L) Sufficiency 30 - 100 ng/mL (75 - 250 nmol/L) Toxicity >100 ng/mL (>250 nmol/L) Platelets bldOrdered By: Dr. Doran on 08-08-2022 Platelets (Bld) [#/Vol] 365 10*3/uL 150-450 [facility] Serum or plasma calcium viktoria urement (mass/volume)Ordered By: Dr. Doran on 08-08-2022 Calcium [Mass/Vol] 9.2 mg/dL 8.5-10.1 [facility] Serum or plasma creatinine m easurement (mass/volume)Ordered By: Dr. Doran on 08-08-2022 Creatinine [Mass/Vol] 1.15 mg/dL 0.55-1.02 [facility] Comment on above: The validity of the calculated GFR & GFRAA in patients over 70 years has not been determined. Clinical correlation is essential. Serum or plasma ferritin rich surement (mass/volume)Ordered By: Dr. Doran on 08-08-2022 Ferritin [Mass/Vol] 83 ng/mL 8-252 [facility] Serum or plasma urea nitroge n measurement (mass/volume)Ordered By: Dr. Doran on 08-08-2022 Urea nitrogen [Mass/Vol] 21 mg/dL 7-18 [facility] Thin prep Papanicolaou smear with manual screeningOrdered By: Dr. Doran on 08-08-2022 Thin prep Papanicolaou smear with manual screening 6 5-15 [facility] Absolute lymphocyte countOrd ered By: Dr. Doran on 06-26-2022 Lymphocytes Auto (Unsp spec) [#/Vol] 2.42 10*3/uL 0.83-4.51 [facility] Basophil percentageOrdered B y: Dr. Doran on 06-26-2022 Basophils/100 WBC (Bld) 0.5 % 0-1 [facility] Bilirubin [Mass/Vol] 0.40 mg/dL 0.20-1.00 [facility] Comment on above: For patients on eltr ombopag therapy, use of Dimension Kimball TBIL is not recommended. Chloride [Moles/Vol] 106 mmol/L 98-107 [facility] Cholesterol [Mass/Vol] 163 mg/dL <200 [facility] Comment on above: <200 mg/dL Desirable 200-240 mg/dL Borderline >240 mg/dL High Risk Eosinophils/100 WBC (Bld) 4.2 % 0-5 [facility] Glucose [Mass/Vol] 142 mg/dL 74-106 [facility] Comment on above: Fasting Glucose resu lt greater than or equal to 126 mg/dL suggests DIABETES MELLITUS per A.D.A. criteria. Neutrophils (Bld) [#/Vol] 3.9 10*3/uL 2.0-7.7 [facility] Neutrophils/100 WBC (Bld) 53.1 % 47-70 [facility] Potassium [Moles/Vol] 4.3 mmol/L 3.5-5.1 [facility] Protein [Mass/Vol] 6.9 g/dL 6.4-8.2 [facility] Sodium [Moles/Vol] 139 mmol/L 136-145 [facility] Triglyceride [Mass/Vol] 178 mg/dL <199 [facility] Comment on above: The drugs N-Acetylcy steine and Metamizole may falsely depress this assay.Serum Triglycerides Reference Interval Normal <150 mg/dL Borderline high 150 - 199 mg/dL High 200 - 499 mg/dL Very High > or = 500 mg/dL WBC (Bld) [#/Vol] 7.4 10*3/uL 4.4-11.0 [facility] Blood erythrocytes count (nu mber/volume)Ordered By: Dr. Doran on 06-26-2022 RBC (Bld) [#/Vol] 4.51 10*6/uL 4.2-5.4 [facility] Blood hemoglobin measurement (mass/volume)Ordered By: Dr. Doran on 06-26-2022 Hemoglobin (Bld) [Mass/Vol] 13.5 g/dL 12.0-15.0 [facility] Blood lymphocytes/100 leukoc ytesOrdered By: Dr. Doran on 06-26-2022 Lymphocytes/100 WBC (Bld) 32.9 % 19-41 [facility] Blood monocytes/100 leukocyt esOrdered By: Dr. Doran on 06-26-2022 Monocytes/100 WBC (Bld) 9.0 % 0-10 [facility] Blood platelet mean volumeOr dered By: Dr. Doran on 06-26-2022 Platelet mean volume (Bld) [Entitic vol] 10.2 fL 6.2-12.0 [facility] Determination of erythrocyte mean corpuscular volume (MCV)Ordered By: Dr. Doran on 06-26-2022 MCV (RBC) [Entitic vol] 92.5 fL 81-99 [facility] Hematocrit Auto (Bld) [Volum e fraction]Ordered By: Dr. Doran on 06-26-2022 Hematocrit (Bld) [Volume fraction] 41.7 % 37-47 [facility] Laboratory - Chemistry and C hemistry - challengeOrdered By: Dr. Doran on 06-26-2022 ALP [Catalytic activity/Vol] 69 U/L 45-117 [facility] ALT [Catalytic activity/Vol] 13 U/L 13-56 [facility] CO2 [Moles/Vol] 29.0 mmol/L 21.0-32.0 [facility] Globulin (S) [Mass/Vol] 3.7 g/dL 2.2-4.2 [facility] Urea nitrogen/Creatinine [Mass ratio] 18.0 mg/mg 10-20 [facility] Laboratory - Hematology and Cell countsOrdered By: Dr. Doran on 06-26-2022 Erythrocyte distribution width (RBC) [Entitic vol] 43.9 fL 35.1-43.9 [facility] Erythrocyte distribution width (RBC) [Ratio] 12.9 % 11.6-14.6 [facility] Immature granulocytes/100 WBC (Bld) 0.300 % 0.0-0.9 [facility] Comment on above: IG% - Immature Granu locytes (promyelocytes, myelocytes and metamyelocytes) > 1% indicates that a LEFT SHIFT is Present. MCH (RBC) [Entitic mass] 29.9 pg 27.0-32.0 [facility] Nucleated RBC/100 WBC (Bld) [Ratio] 0 % 0-5 [facility] MCHC Auto (RBC) [Mass/Vol]Or dered By: Dr. Doran on 06-26-2022 MCHC (RBC) [Mass/Vol] 32.4 g/dL 32-36 [facility] No Panel InformationOrdered By: Dr. Doran on 06-26-2022 Estimated GFR (MDRD) Amer 60 mL/min >60 [facility] Comment on above: GFR Calc Estimated GFR (MDRD) Non-Af Amer 49 mL/min >60 [facility] Comment on above: Non- GFR Calc Platelets bldOrdered By: Dr. Doran on 06-26-2022 Platelets (Bld) [#/Vol] 314 10*3/uL 150-450 [facility] Serum or plasma albumin viktoria urement (mass/volume)Ordered By: Dr. Doran on 06-26-2022 Albumin [Mass/Vol] 3.2 g/dL 3.2-5.0 [facility] Serum or plasma albumin/glob ulin mass ratioOrdered By: Dr. Doran on 06-26-2022 Albumin/Globulin [Mass ratio] 0.9 {ratio} 0.9-2.4 [facility] Serum or plasma calcium viktoria urement (mass/volume)Ordered By: Dr. Doran on 06-26-2022 Calcium [Mass/Vol] 8.8 mg/dL 8.5-10.1 [facility] Serum or plasma cholesterol in HDL measurement (mass/volume)Ordered By: Dr. Dorna on 06-26-2022 Cholesterol in HDL [Mass/Vol] 47 mg/dL >40 [facility] Comment on above: The drugs N-Acetylcy steine and Metamizole may falsely depress this assay. Reference Range HDL <40 mg/dL Low HDL Cholesterol HDL >or= 60 mg/dL High HDL Cholesterol Serum or plasma cholesterol in VLDL measurement (mass/volume)Ordered By: Dr. Doran on 06-26-2022 Cholesterol in VLDL [Mass/Vol] 36 mg/dL 5-40 [facility] Serum or plasma creatinine m easurement (mass/volume)Ordered By: Dr. Doran on 06-26-2022 Creatinine [Mass/Vol] 1.11 mg/dL 0.55-1.02 [facility] Comment on above: The validity of the calculated GFR & GFRAA in patients over 70 years has not been determined. Clinical correlation is essential. Serum or plasma low density lipoprotein (LDL) cholesterol measurement (mass/volume)Ordered By: Dr. Doran on 06-26-2022 Cholesterol in LDL [Mass/Vol] 80 mg/dL 0-130 [facility] Serum or plasma urea nitroge n measurement (mass/volume)Ordered By: Dr. Doran on 06-26-2022 Urea nitrogen [Mass/Vol] 20 mg/dL 7-18 [facility] Thin prep Papanicolaou smear with manual screeningOrdered By: Dr. Doran on 06-26-2022 Thin prep Papanicolaou smear with manual screening 15 U/L 15-37 [facility] Thin prep Papanicolaou smear with manual screening 4 5-15 [facility] Absolute lymphocyte countOrd ered By: Reese Shankar on 02-11-2022 Lymphocytes Auto (Unsp spec) [#/Vol] 1.50 10*3/uL 0.83-4.51 [facility] Basophil percentageOrdered B y: Reese Shankar on 02-11-2022 Basophils/100 WBC (Bld) 0.4 % 0-1 [facility] Chloride [Moles/Vol] 102 mmol/L 98-107 [facility] Eosinophils/100 WBC (Bld) 1.7 % 0-5 [facility] Glucose [Mass/Vol] 153 mg/dL 74-106 [facility] Comment on above: Fasting Glucose resu lt greater than or equal to 126 mg/dL suggests DIABETES MELLITUS per A.D.A. criteria. Neutrophils (Bld) [#/Vol] 10.0 10*3/uL 2.0-7.7 [facility] Neutrophils/100 WBC (Bld) 79.1 % 47-70 [facility] Potassium [Moles/Vol] 3.9 mmol/L 3.5-5.1 [facility] Sodium [Moles/Vol] 138 mmol/L 136-145 [facility] WBC (Bld) [#/Vol] 12.7 10*3/uL 4.4-11.0 [facility] Blood erythrocytes count (nu mber/volume)Ordered By: Reese Shankar on 02-11-2022 RBC (Bld) [#/Vol] 4.24 10*6/uL 4.2-5.4 [facility] Blood hemoglobin measurement (mass/volume)Ordered By: Reese Shankar on 02-11-2022 Hemoglobin (Bld) [Mass/Vol] 12.8 g/dL 12.0-15.0 [facility] Blood lymphocytes/100 leukoc ytesOrdered By: Reese Shankar on 02-11-2022 Lymphocytes/100 WBC (Bld) 11.8 % 19-41 [facility] Blood monocytes/100 leukocyt esOrdered By: Reese Shankar on 02-11-2022 Monocytes/100 WBC (Bld) 6.7 % 0-10 [facility] Blood platelet mean volumeOr dered By: Reese Shankar on 02-11-2022 Platelet mean volume (Bld) [Entitic vol] 11.0 fL 6.2-12.0 [facility] Determination of erythrocyte mean corpuscular volume (MCV)Ordered By: Reese Shankar on 02-11-2022 MCV (RBC) [Entitic vol] 91.7 fL 81-99 [facility] Hematocrit Auto (Bld) [Volum e fraction]Ordered By: Reese Shankar on 02-11-2022 Hematocrit (Bld) [Volume fraction] 38.9 % 37-47 [facility] INR in Blood by Coagulation assayOrdered By: Reese Shankar on 02-11-2022 INR Coag (Bld) [Relative time] 2.7 {INR} [facility] Laboratory - Chemistry and C hemistry - challengeOrdered By: Reese Shankar on 02-11-2022 CO2 [Moles/Vol] 26.0 mmol/L 21.0-32.0 [facility] Magnesium [Mass/Vol] 2.2 mg/dL 1.6-2.6 [facility] Urea nitrogen/Creatinine [Mass ratio] 18.5 mg/mg 10-20 [facility] Laboratory - CoagulationOrde red By: Reese Shankar on 02-11-2022 PT Coag (PPP) [Time] 28.0 s 11.7-14.9 [facility] Laboratory - Hematology and Cell countsOrdered By: Reese Shankar on 02-11-2022 Erythrocyte distribution width (RBC) [Entitic vol] 43.5 fL 35.1-43.9 [facility] Erythrocyte distribution width (RBC) [Ratio] 12.9 % 11.6-14.6 [facility] Immature granulocytes/100 WBC (Bld) 0.300 % 0.0-0.9 [facility] Comment on above: IG% - Immature Granu locytes (promyelocytes, myelocytes and metamyelocytes) > 1% indicates that a LEFT SHIFT is Present. MCH (RBC) [Entitic mass] 30.2 pg 27.0-32.0 [facility] Nucleated RBC/100 WBC (Bld) [Ratio] 0 % 0-5 [facility] MCHC Auto (RBC) [Mass/Vol]Or dered By: Reese Shankar on 02-11-2022 MCHC (RBC) [Mass/Vol] 32.9 g/dL 32-36 [facility] No Panel InformationOrdered By: Reese Shankar on 02-11-2022 Estimated Creatinine Clearance Calc 19.31 ml/min [facility] Estimated GFR (MDRD) Amer 36 mL/min >60 [facility] Comment on above: GFR Calc Estimated GFR (MDRD) Non-Af Amer 30 mL/min >60 [facility] Comment on above: Non- GFR Calc Troponin I High Sensitivity 13 pg/mL 3.0-54.0 [facility] Comment on above: Please Note: New Evon t Units and Gender Specific Reference Ranges. For more information see Policy Stat Procedure [place]ball High Sensitivity Troponin (TNIH) and attachments. Platelets bldOrdered By: Dontae Shankar on 02-11-2022 Platelets (Bld) [#/Vol] 286 10*3/uL 150-450 [facility] Serum or plasma calcium viktoria urement (mass/volume)Ordered By: Reese Shankar on 02-11-2022 Calcium [Mass/Vol] 9.1 mg/dL 8.5-10.1 [facility] Serum or plasma creatinine m easurement (mass/volume)Ordered By: Reese Shankar on 02-11-2022 Creatinine [Mass/Vol] 1.73 mg/dL 0.55-1.02 [facility] Comment on above: The validity of the calculated GFR & GFRAA in patients over 70 years has not been determined. Clinical correlation is essential. Serum or plasma urea nitroge n measurement (mass/volume)Ordered By: Reese Shankar on 02-11-2022 Urea nitrogen [Mass/Vol] 32 mg/dL 7-18 [facility] Thin prep Papanicolaou smear with manual screeningOrdered By: Reese Shankar on 02-11-2022 Thin prep Papanicolaou smear with manual screening 10 5-15 [facility] SUZINon 10-14-2019 CNPN Telephone (AGCARD[facility] ) EZRA GONZALEZ ([id number]) 1935 F Date Time Provider Department 10/14/19 [...] artery stent placement- 2006 [Z95*11/14/2015 Atherosclerosis of [place] coronary artery of na*11/14/2015 Asymptomatic cholelithiasis [K80.20] [...] Encounter Status:Closed by ELVER ACOSTA on 10/14/19 [facility] CNPTOUTREACHon 10-12-2019 [facility] Patient Outreach ([facility]) EZRA GONZALEZ ([id number]) 1935 F Date Time Provider Department 10/12/19 SWATHI CRUZ) [facility] During your visit today, we recorded the following information about you: Swathi Cruz LPN, LPN 10/12/2019 10:48 AM Signed ED Follow Up: Patient discharged from [facility] ED on 10/11/2019 for Fall, [...] Visit: Transition Of Care [4074] Cmt: ED [facility] 10/11/2019 (Pt. has new pcp) [...] artery stent placement- 2006 [Z95*11/14/2015 Atherosclerosis of [place] coronary artery of na*11/14/2015 Asymptomatic cholelithiasis [K80.20] [...] Status:Closed by SWATHI CRUZ LPN on 10/12/19 [facility] OBSOLETEon 10-12-2019 OBSOLETE Refill ([facility]) EZRA GONZALEZ ([id number]) 1935 F Date Time Provider Department 10/12/19 JO PEREZ [facility] During your visit today, we recorded [...] Visit date not found Patient Phone numbers: [phone] (home) Request is for script(s) to be [...] artery stent placement- 2006 [Z95*11/14/2015 Atherosclerosis of [place] coronary artery of na*11/14/2015 Asymptomatic cholelithiasis [K80.20] [...] Status:Closed by LYNN BENEDICT LPN on 11/11/19 [facility] PROGRESSon 10-12-2019 PROGRESS HNO ID: [id number] Author: Swathi Cruz LPN Service: ? Author Type: LICENSED NURSE Type: Progress Notes Filed: 10/12/2019 10:48 AM Note Text: ED Follow Up: Patient discharged from [facility] ED on 10/11/2019 for Fall, rib fracture Outreach # 1, Contact Made. Patient was called at this time. Patient verified by name and . Patient stated she has a new PCP Dr. Sada Doran who she will follow up with. Swathi Cruz LPN 10/12/2019 10:45 AM [facility] CNPMari 10-06-2019 JAROD Telephone ([facility]) EZRA GONZALEZ ([id number]) 1935 F Date Time Provider Department 10/06/19 ESTEFANIA CEVALOLS During your visit today, we recorded the following information about you: Estefania Cevallos, PharmD 10/06/2019 1:08 PM Signed Referred by [...] Date: 12/30/16 +++[facility] [place] [phone][facility]+ PT INR Date Value Ref Range Status [...] (HCC) [I48.91] Order(s):PROTHROMBIN TIME/PT [SQPT] Order #: [id number] Prescriptions as of 10/06/2019 Sig: METOPROLOL SUCCINATE [...] artery stent placement- 2006 [Z95*11/14/2015 Atherosclerosis of [place] coronary artery of na*11/14/2015 Asymptomatic cholelithiasis [K80.20] [...] Encounter Status:Closed by BHAKTI (PHARMACIST)ESTEFANIA on 10/06/19 [facility] ([facility]) EZRA GONZALEZ ([id number]) 1935 F Date Time Provider Department 09/22/19 JO PEREZ [facility] During your visit today, we recorded the following information about you: Maryanne Gomez MA 09/22/2019 10:38 AM Signed Patient is aware that you are going to be leaving the practice. She states she recently moved down to [place] and wants to find a physician closer to her Is there anyone that you recommend Maryanne Gomez MA 09/22/2019 10:37 AM Jo Perez MD 09/22/2019 12:[address] barker at [facility] Alicia Park LPN 09/22/2019 1:21 PM Signed [...] Fully Assessed Reason for Visit: Patient Question [5260] Cmt: [facility] in [facility] Prescriptions as of 09/22/2019 Sig: METOPROLOL SUCCINATE [...] artery stent placement- 2006 [Z95*11/14/2015 Atherosclerosis of [place] coronary artery of na*11/14/2015 Asymptomatic cholelithiasis [K80.20] [...] Encounter Status:Closed by ALICIA PARK on 09/22/19 [facility]ACH[facility] EZRA GONZALEZ ([id number]) 1935 F Date Time Provider Department 09/22/19 MARYANNE GOMEZ) [facility] During your visit today, we recorded the following information about you: Maryanne Gomez MA 09/22/2019 10:34 AM Signed HIGH RISK CHRONIC DISEASE MONITORING - [facility] Provider Action/FYI: Patient doing well Contact made with patient: Yes Hi my name is Maryanne Gomez MA and I am calling from the [facility] on behalf of your PCP. [...] like to speak with a social work steam tender to help give you support for any [...] artery stent placement- 2006 [Z95*11/14/2015 Atherosclerosis of [place] coronary artery of na*11/14/2015 Asymptomatic cholelithiasis [K80.20] [...] Status:Closed by MARYANNE GOMEZ on 09/22/19 [facility] PROGRESSon 09-22-2019 PROGRESS HNO ID: [id number] Author: Maryanne Gomez Service: ? Author Type: Fund Raiser Type: Progress Notes Filed: 09/22/2019 10:34 AM Note Text: HIGH RISK CHRONIC DISEASE MONITORING - [facility] Provider Action/FYI: Patient doing well Contact made with patient: Yes Hi my name is Maryanne Gomez MA and I am calling from the [facility] on behalf of your PCP. I'm [...] like to speak with a social work steam tender to help give you support for any [...] Maryanne Gomez MA 09/22/2019 10:33 AM Normal [facility] Guido 09-21-2019 [facility] Patient Outreach ([facility]) EZRA GONZALEZ ([id number]) 1935 F Date Time Provider Department 09/21/19 JO PEREZ [facility] During your visit today, we recorded the following information about you: Alicia Park LPN 09/21/2019 10:43 AM Signed HIGH RISK CHRONIC DISEASE MONITORING - [facility] Provider Action/FYI: Contact made with patient: No - Left 1st message - Hi my name is Alicia Park LPN and I am calling from the [facility] on behalf of your PCP, [...] artery stent placement- 2006 [Z95*11/14/2015 Atherosclerosis of [place] coronary artery of na*11/14/2015 Asymptomatic cholelithiasis [K80.20] [...] Encounter Status:Closed by ALICIA PARK on 09/21/19 [facility] PROGRESSon 09-21-2019 PROGRESS HNO ID: [id number] Author: Alicia Park Service: ? Author Type: LICENSED NURSE Type: Progress Notes Filed: 09/21/2019 10:43 AM Note Text: HIGH RISK CHRONIC DISEASE MONITORING - [facility] Provider Action/FYI: Contact made with patient: No - Left 1st message - Hi my name is Alicia Park LPN and I am calling from the [facility] on behalf of your PCP, [...] Track Pt Outreach. End outreach.) Outreach ended [facility] CNPMari 09-02-2019 CNPN Telephone ([employer]) EZRA GONZALEZ ([id number]) 1935 F Date Time Provider Department 09/02/19 [...] Date: 12/30/16 +++Patient gets lab draw at [facility] in [place] [phone]+++ PT INR Date Value Ref Range Status [...] have next INR drawn at [facility] in [place] next month. Order placed. Jp CollinsD Allergies As of Date: 09/02/2019 Noted Allergy [...] (HCC) [I48.91] Order(s):PROTHROMBIN TIME/PT [SQPT] Order #: [id number] PROTHROMBIN TIME/PT [SQPT] Order #: [id number] STANDING Prescriptions as of 09/02/2019 Sig: METOPROLOL [...] artery stent placement- 2006 [Z95*11/14/2015 Atherosclerosis of [place] coronary artery of na*11/14/2015 Asymptomatic cholelithiasis [K80.20] [...] Encounter Status:Closed by BHAKTI (PHARMACIST)ESTEFANIA on 09/03/19 [facility] Guido 08-12-2019 CNPTOUTREACH Patient Outreach ([facility]) EZRA GONZALEZ ([id number]) 1935 F Date Time Provider Department 08/12/19 MARYANNE GOMEZ) [facility] During your visit today, we recorded the following information about you: Maryanne Gomez MA 08/12/2019 9:39 AM Signed HIGH RISK CHRONIC DISEASE MONITORING - [facility] Provider Action/FYI: Left 2nd message, will add patient to schedule for a month Contact made with patient: No, Left 2nd message - Hi my name is Maryanne Gomez MA and I am calling [facility] on behalf of your PCP, Jo [...] artery stent placement- 2006 [Z95*11/14/2015 Atherosclerosis of [place] coronary artery of na*11/14/2015 Asymptomatic cholelithiasis [K80.20] [...] Encounter Status:Closed by MARYANNE GOMEZ on 08/12/19 [facility] PROGRESSon 08-12-2019 PROGRESS HNO ID: [id number] Author: Maryanne Gomez Service: ? Author Type: Fund Raiser Type: Progress Notes Filed: 08/12/2019 9:39 AM Note Text: HIGH RISK CHRONIC DISEASE MONITORING - [facility] Provider Action/FYI: Left 2nd message, will add patient to schedule for a month Contact made with patient: No, Left 2nd message - Hi my name is Maryanne Gomez MA and I am calling from the [facility] on behalf of your PCP, [...] outreach date for one month (on a ) from today's date using the Track Pt Outreach. End outreach.) Outreach ended Maryanne Gomez MA 08/12/2019 9:38 AM [facility] CNPTOUTREACHochastity 08-11-2019 CNPTOUTREA [facility] EZRA GONZALEZ ([id number]) 1935 F Date Time Provider Department 08/11/19 MARYANNE GOMEZ) [facility] During your visit today, we recorded the following information about you: Maryanne Gomez MA 08/11/2019 10:02 AM Signed HIGH RISK CHRONIC DISEASE MONITORING - [facility] Provider Action/FYI: Left message, will add to schedule for tomorrow Contact made with patient: No - Left 1st message - Hi my name is Maryanne REGI Gomez and I am calling from the [facility] on behalf of your PCP, Jo [...] artery stent placement- 2006 [Z95*11/14/2015 Atherosclerosis of [place] coronary artery of na*11/14/2015 Asymptomatic cholelithiasis [K80.20] [...] Encounter Status:Closed by MARYANNE GOMEZ on 08/11/19 [facility] PROGRESSon 08-11-2019 PROGRESS HNO ID: [id number] Author: Maryanne Gomez Service: ? Author Type: Fund Raiser Type: Progress Notes Filed: 08/11/2019 10:02 AM Note Text: HIGH RISK CHRONIC DISEASE MONITORING - [facility] Provider Action/FYI: Left message, will add to schedule for tomorrow Contact made with patient: No - Left 1st message - Hi my name is Maryannehandy Gomez MA and I am calling from the [facility] on behalf of your PCP, [...] ended Maryanne Gomez MA 08/11/2019 10:01 AM [facility] OBSOLETEon 08-05-2019 OBSOLETE Refill (AGCARDPOB) EZRA GONZALEZ ([id number]) 1935 F Date Time Provider Department 08/05/19 [...] Prescription(s) as above. Please process accordingly. Lynette Orourke Allergies As of Date: 08/05/2019 Noted Allergy [...] artery stent placement- 2006 [Z95*11/14/2015 Atherosclerosis of [place] coronary artery of na*11/14/2015 Asymptomatic cholelithiasis [K80.20] [...] Encounter Status:Closed by LYNETTE OROURKE on 08/05/19 [facility] CNPTOUTREACHon 08-04-2019 [facility] Patient Outreach ([facility]) EZRA GONZALEZ ([id number]) 1935 F Date Time Provider Department 08/04/19 MARYANNE GOMEZ) [facility] During your visit today, we recorded the following information about you: Maryanne Gomez MA 08/04/2019 11:03 AM Signed HIGH RISK CHRONIC DISEASE MONITORING - [facility] Provider Action/FYI: Patient has no questions or concerns at this time Contact made with patient: Yes Hi my name is Maryanne Gomez MA and I am calling from the [facility] on behalf of your PCP. [...] like to speak with a social work steam tender to help give you support for any [...] artery stent placement- 2006 [Z95*11/14/2015 Atherosclerosis of [place] coronary artery of na*11/14/2015 Asymptomatic cholelithiasis [K80.20] [...] Encounter Status:Closed by MARYANNE GOMEZ on 08/04/19 [facility] PROGRESSon 08-04-2019 PROGRESS HNO ID: [id number] Author: Maryanne Gomez Service: ? Author Type: Fund Raiser Type: Progress Notes Filed: 08/04/2019 11:03 AM Note Text: HIGH RISK CHRONIC DISEASE MONITORING - [facility] Provider Action/FYI: Patient has no questions or concerns at this time Contact made with patient: Yes Hi my name is Maryanne Gomez MA and I am calling from the [facility] on behalf of your PCP. [...] like to speak with a social work steam tender to help give you support for any [...] as today in the Track Pt Outreach.) Marynane Gomez MA 08/04/2019 11:03 AM [facility] OBSOLETEon 08-03-2019 OBSOLETE Refill (AGCARDPOB) EZRA GONZALEZ ([id number]) 1935 F Date Time Provider Department 08/03/19 [...] artery stent placement- 2006 [Z95*11/14/2015 Atherosclerosis of [place] coronary artery of na*11/14/2015 Asymptomatic cholelithiasis [K80.20] [...] Status:Closed by KATYA WELLS CNP on 08/03/19 [facility] CNPTOUTREACHochastity 07-28-2019 CNPTOUTREA Patient Outreach ([facility]) EZRA GONZALEZ ([id number]) 1935 F Date Time Provider Department 07/28/19 MARYANNE GOMEZ) [facility] During your visit today, we recorded the following information about you: Maryanne Gomez MA 07/28/2019 3:18 PM Signed HIGH RISK CHRONIC DISEASE MONITORING - [facility] Provider Action/FYI: Patient wants to know [...] MA and I am calling from the [facility] on behalf of your PCP. [...] like to speak with a social work steam tender to help give you support for any [...] Please report her afib episode to her forgesmith (you can just route this chart to [...] use of insulin (HCC) [E11.9] Order(s):HGB A1C [OSWES7R] Order #: [id number] FUTURE LIPID PANEL BASIC [SQLIPB] Order #: [id number] FUTURE COMP METABOLIC PANEL [SQCMP] Order #: [id number] FUTURE ALBUMIN QUANT 24H UR [SQUALBQ] Order #: [id number] FUTURE Prescriptions as of 07/28/2019 Sig: SIMVASTATIN [...] artery stent placement- 2006 [Z95*11/14/2015 Atherosclerosis of [place] coronary artery of na*11/14/2015 Asymptomatic cholelithiasis [K80.20] [...] Encounter Status:Closed by JO PEREZ on 07/28/19 [facility] OBSOLETEon 07-28-2019 OBSOLETE Refill (AGCARDHWG) EZRA GONZALEZ ([id number]) 1935 F Date Time Provider Department 07/28/19 [...] artery stent placement- 2006 [Z95*11/14/2015 Atherosclerosis of [place] coronary artery of na*11/14/2015 Asymptomatic cholelithiasis [K80.20] [...] Status:Closed by ARCELIA LOCKETT CNP on 07/28/19 [facility] PROGRESSon 07-28-2019 PROGRESS HNO ID: [id number] Author: Maryanne Gomez Service: ? Author Type: Fund Raiser Type: Progress Notes Filed: 07/28/2019 3:18 PM [...] necessary. Maryanne Gomez MA 07/28/2019 3:05 PM [facility] PROGRESS HNO ID: [id number] Author: Jo Perez Service: ? Author Type: Physician Type: Progress Notes Filed: 07/28/2019 3:18 PM Note Text: Please report her afib episode to her forgesmith (you can just route this chart to [...] get labs done prior to her visit [facility] PROGRESS HNO ID: [id number] Author: Maryanne Gomez Service: ? Author Type: Fund Raiser Type: Progress Notes Filed: 07/28/2019 3:18 PM Note Text: HIGH RISK CHRONIC DISEASE MONITORING - [facility] Provider Action/FYI: Patient wants to know [...] MA and I am calling from the [facility] on behalf of your PCP. I'm [...] like to speak with a social work steam tender to help give you support for any [...] Maryanne Gomez MA 07/28/2019 2:21 PM [facility] OBSOLETEon 07-14-2019 OBSOLETE Refill (AGC) EZRA GONZALEZ ([id number]) 1935 F Date Time Provider Department 07/14/19 JO PEREZ [facility] During your visit today, we recorded [...] Visit date not found Patient Phone numbers: [phone] (home) Request is for script(s) to be [...] artery stent placement- 2006 [Z95*11/14/2015 Atherosclerosis of [place] coronary artery of na*11/14/2015 Asymptomatic cholelithiasis [K80.20] [...] Encounter Status:Closed by JO PEREZ on 07/14/19 [facility] OBSOLETE Refill (AGCARDPOB) LISAEZRA J ([id number]) 1935 F Date Time Provider Department 07/14/19 [...] artery stent placement- 2006 [Z95*11/14/2015 Atherosclerosis of [place] coronary artery of na*11/14/2015 Asymptomatic cholelithiasis [K80.20] [...] ordered this encounter Disp Refills Start End MARTOVEN 2 MG TABLET 108 * 3 07/14/2019 [...] RICKEY CHAVARRIA MD on 07/14/19 [facility] EZRA GONZALE[facility] ([id number]) 1935 F Date Time Provider Department 07/12/19 [facility] During your visit today, we recorded [...] Date: 12/30/16 +++Patient gets lab draw at [facility] in [place] [phone]+++ PT INR Date Value Ref Range Status [...] (HCC) [I48.91] Order(s):PROTHROMBIN TIME/PT [SQPT] Order #: [id number] Prescriptions as of 07/12/2019 Sig: LISINOPRIL 5 [...] artery stent placement- 2006 [Z95*11/14/2015 Atherosclerosis of [place] coronary artery of na*11/14/2015 Asymptomatic cholelithiasis [K80.20] [...] Encounter Status:Closed by BHAKTI (PHARMACIST)ESTEFANIA on 07/12/19 [facility] OBSOLETEon 07-05-2019 OBSOLETE Refill (AGC) LISAEZRA ([id number]) 1935 F Date Time Provider Department 07/05/19 JO PEREZ [facility] During your visit today, we recorded [...] Patient next appointment: 07/28/2019 Patient Phone numbers: [phone] (home) Request is for script(s) to be [...] longer on backorder per Dr. Perez. Bernarda Larchmont 07/13/2019 11:23 AM Allergies As of Date: [...] artery stent placement- 2006 [Z95*11/14/2015 Atherosclerosis of [place] coronary artery of na*11/14/2015 Asymptomatic cholelithiasis [K80.20] [...] Status:Closed by PATITO WILSON CNP on 07/05/19 [facility] OBSOLETEon 07-01-2019 OBSOLETE Refill (AGC) LISAEZRA ([id number]) 1935 F Date Time Provider Department 07/01/19 JO PEREZ During your visit today, we recorded the following information about you: Robert Diaz CMA 07/01/2019 9:20 AM Signed Patient called requesting the following refill. Pending Prescriptions Disp Refills RANITIDINE 150 MG TABLET 90 tablet 0 Sig: Take 1 tablet by mouth once daily. SHAHEEN: No Last refill: 03/18/2019 Patient last appointment: 06/10/2019 Patient next appointment: 07/28/2019 Patient Phone numbers: [phone] (home) Request is for script(s) to be [...] artery stent placement- 2006 [Z95*11/14/2015 Atherosclerosis of [place] coronary artery of na*11/14/2015 Asymptomatic cholelithiasis [K80.20] [...] Encounter Status:Closed by JO PEREZ on 07/01/19 [facility] 06-10-2019 CNPN Telephone (INTBMG) EZRA GONZALEZ ([id number]) 1935 F Date Time Provider Department 06/10/19 [facility] During your visit today, we recorded the following information about you: Swathi Cruz LPN, LEE 06/10/2019 12:42 PM Signed SHARED MEDICAL APPOINTMENT (SMA) INVITE DATE: 07/22/2019 TIME: 10am-12pm PHYSICIAN: Chris TOPIC/DIAGNOSIS: DM2 IS PATIENT INTERESTED IN ATTENDING? [...] artery stent placement- 2006 [Z95*11/14/2015 Atherosclerosis of [place] coronary artery of na*11/14/2015 Asymptomatic cholelithiasis [K80.20] [...] Status:Closed by SWATHI CRUZ LPN on 06/10/19 [facility] 06-07-2019 SUZIN Telephone (SARITHAMAC) EZRA GONZALEZ ([id number]) 1935 F Date Time Provider Department 06/07/19 [...] Date: 12/30/16 +++Patient gets lab draw at [facility] in [place] [phone]+++ PT INR Date Value Ref Range Status [...] understanding. Jp CollinsD Allergies As of Date: 06/07/2019 Noted Allergy [...] (HCC) [I48.91] Order(s):PROTHROMBIN TIME/PT [SQPT] Order #: [id number] Prescriptions as of 06/07/2019 Sig: COQ-10 ORAL [...] artery stent placement- 2006 [Z95*11/14/2015 Atherosclerosis of [place] coronary artery of na*11/14/2015 Asymptomatic cholelithiasis [K80.20] [...] Encounter Status:Closed by BHAKTI (PHARMACIST)ESTEFANIA on 06/07/19 [facility] 06-04-2019 SUZIN Telephone (LA) EZRA GONZALEZ ([id number]) 1935 F Date Time Provider Department 06/04/19 ESTEFANIA CEVALLOS During your visit today, we recorded the following information about you: Estefania Cevallos PharmD 06/04/2019 2:30 PM Signed Patient was due to have an INR drawn at the end of May. We have not received results. Please check with patient. Angela oCllins LPN, LPN 06/04/2019 3:44 PM Signed Called [...] artery stent placement- 2006 [Z95*11/14/2015 Atherosclerosis of [place] coronary artery of na*11/14/2015 Asymptomatic cholelithiasis [K80.20] [...] Encounter Status:Closed by BHAKTI (PHARMACIST)ESTEFANIA on [facility]04[facility] EZRA GONZALEZ ([id number]) 1935 F Date Time Provider Department 05/13/19 4:00 PM CRUZ SANCHEZ AGHWW1 During your visit today, we recorded the following information about you: Respiration Weight Height 18/minute 82.6 kg 1.613 m Cruz Sanchez MD 05/13/2019 5:00 PM Signed HISTORY OF PRESENT ILLNESS: Ezra Gonzalez is an 83-year-old jybwp-czql-hegfienx female who returns for follow-up right shoulder [...] associated with diabetes mellitus (HCC) - Old [place] (myocardial infarction) 2006 - On anticoagulant therapy - On watermaster drug therapy - Osteoarthritis - Peripheral venous [...] R Shoulder CARDIOVASCULAR: Peripheral venous insufficiency, h/o [place], HTN, Coronary Arteriosclerosis, A-Fib, Cardiac Ablation MSK: [...] [Z98.890] Order(s):Large Joint Arthro/Inj: R subacromial bursa [HPW960] Order #: [id number] betamethasone acetate-betamethasone sodium phosphate 12 mg injection [...] artery stent placement- 2006 [Z95*11/14/2015 Atherosclerosis of [place] coronary artery of na*11/14/2015 Asymptomatic cholelithiasis [K80.20] [...] Status:Closed by CRUZ SANCHEZ MD on 05/13/19 Normal [facility] PROGRESSon 05-13-2019 PROGRESS HNO ID: [id number] Author: Cruz Sanchez Service: ? 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 Cruz Sanchez MD [facility] CNOVon 04-27-2019 CN Office Visit ([facility]) LISAEZRA J ([id number]) 1935 F Date Time Provider Department 04/27/19 3:40 PM JO PEREZ [facility] During your visit today, we recorded [...] coronary artery stent placement- 2006 Atherosclerosis of [place] Coronary Artery of [place] Heart Without Angina Pectoris Asymptomatic Cholelithiasis History [...] Gonzalez Podiatry 05/19/2015 End 05/19/15 Nirmal Kemp AUDIO VISUAL PROJECT MANAGER 07/07/2017 End 07/07/17 ; Mohan Álvarez Ophthalmology 07/07/2017 End 07/07/17 Rickye Chavarria Cardiology 09/30/2018 End 09/30/18 ; End of Live Planning discussed including patients advanced directive wishes: Yes I am willing to follow advanced directives. Mini-Cog Patient asked to remember the following three words: Banana, [place] and Chair Visuospatial/Executiv e Functioning: Clock drawin/2 [...] No history of dysuria, frequency or incontinence FURNACE CHARGER: Negative for abnormal vaginal bleeding, abnormal vaginal [...] with supplements or by diet (goal of 7919-9214 mg/day - Discussed need and benefit for [...] arise. - Discussed diabetic education issues of watermaster diabetic complications, hypoglycemic symptoms, hyperglycemic symptoms, diet, [...] prepared fairly simply. If you were a ixvq-lag-dfnnffzn eater, focus on the meat more than [...] your kitchen up for success. Always have tka-jnpi-opibfale foods on hand ready to eat. Remove [...] unspecified type [R19.7] Order(s):ADMIN OF INFLUENZA VACCINE [Q3722JWF] Order #: [id number]: 1 INFLUENZA SEASONAL HIGH DOSE AGE 65+ [[id number]] Order #: [id number] metFORMIN (GLUCOPHAGE) 500 mg tabletTake 1 tablet by mouth daily with breakfast.Disp: Rfl: HGB A1C [NOQQX9N] Order #: [id number] FUTURE COMP METABOLIC PANEL [SQCMP] Order #: [id number] FUTURE Prescriptions as of 04/27/2019 Sig: COQ-10 [...] artery stent placement- 2006 [Z95*11/14/2015 Atherosclerosis of [place] coronary artery of na*11/14/2015 Asymptomatic cholelithiasis [K80.20] [...] prepared fairly simply. If you were a qvag-soc-iqcdumlt eater, focus on the meat more than [...] your kitchen up for success. Always have uer-kxbb-zsufoyao foods on hand ready to eat. Remove [...] Encounter Status:Closed by JO PEREZ on 04/27/19 [facility] PROGRESSon 04-27-2019 PROGRESS HNO ID: [id number] Author: Jo Perez Service: ? Author Type: [...] coronary artery stent placement- 2006 Atherosclerosis of [place] Coronary Artery of [place] Heart Without Angina Pectoris Asymptomatic Cholelithiasis History [...] Gonzalez Podiatry 05/19/2015 End 05/19/15 Nirmal Kemp AUDIO VISUAL PROJECT MANAGER 07/07/2017 End 07/07/17 ; Mohan Álvarez Ophthalmology 07/07/2017 End 07/07/17 Rickey Chavarria Cardiology 09/30/2018 End 09/30/18 ; End of Live Planning discussed including patients advanced directive wishes: Yes I am willing to follow advanced directives. Mini-Cog Patient asked to remember the following three words: Banana, [place] and Chair Visuospatial/Executiv e Functioning: Clock drawin/2 [...] No history of dysuria, frequency or incontinence FURNACE CHARGER: Negative for abnormal vaginal bleeding, abnormal vaginal [...] with supplements or by diet (goal of 3690-7383 mg/day - Discussed need and benefit for [...] arise. - Discussed diabetic education issues of watermaster diabetic complications, hypoglycemic symptoms, hyperglycemic symptoms, diet, [...] screening - Lipid panel [facility] Office Visit (AGHWW1 ) EZRA GONZALEZ ([id number]) 1935 F Date Time Provider Department 03/18/19 4:00 PM CRUZ SANCHEZ HWW1 During your visit today, we recorded the following information about you: Respiration Weight Height 17/minute 80.7 kg 1.651 m Cruz Sanchez MD 03/18/2019 7:00 PM Signed HISTORY OF PRESENT ILLNESS: Ezra Gonzalez is an 83-year-old xrfuk-gsxt-nqsfcpji female who returns for follow-up right shoulder [...] and strength with continued physical therapy in [employer]. She is currently using the yellow to [...] associated with diabetes mellitus (HCC) - Old [place] (myocardial infarction) 2006 - On anticoagulant therapy - On assisted drug therapy - Osteoarthritis - Peripheral venous [...] Diabetic Neuropathy ENDOCRINE: Dm II Cont[facility]: Vital Signs Resp 17 [...] elects to follow-up as needed. MD Cruz oBlton MD 03/18/2019 4:58 PM Signed Patient encouraged [...] artery stent placement- 2006 [Z95*11/14/2015 Atherosclerosis of [place] coronary artery of na*11/14/2015 Asymptomatic cholelithiasis [K80.20] [...] Encounter Status:Closed by CRUZ SANCHEZ MD on 12/19/19 [facility] PROGRESSon 12-19-2019 PROGRESS HNO ID: [id number] Author: Cruz Sanchez Service: ? Author Type: Physician Type: Progress Notes Filed: 03/18/2019 7:00 PM Note Text: HISTORY OF PRESENT ILLNESS: Ezra Gonzalez is an 83-year-old zmfay-oxpm-awumxffv female who returns for follow-up right shoulder [...] and strength with continued physical therapy in [employer]. She is currently using the yellow to [...] associated with diabetes mellitus (HCC) - Old [place] (myocardial infarction) 2006 - On anticoagulant therapy - On assisted drug therapy - Osteoarthritis - Peripheral venous [...] to follow-up as needed. Cruz Sanchez MD [facility] OBSOLETEon 03-17-2019 OBSOLETE Refill ([facility]) EZRA GONZALEZ ([id number]) 1935 F Date Time Provider Department 03/17/19 VIPUL BUCHANAN ([facility]) [facility] During your visit today, we recorded the following information about you: Anne Marie Britogers Reg 03/18/2019 7:40 AM Signed Pharmacy faxed requesting the following refill. Pending Prescriptions Disp Refills LISINOPRIL 5 MG TABLET 90 tablet 0 Sig: TAKE ONE TABLET BY MOUTH once DAILY SHAHEEN: Yes Last refill: 10/09/2018 Patient last appointment: 09/30/2018 Patient next appointment: Visit date not found Patient Phone numbers: [phone] (home) Request is for script(s) to be escript to pharmacy. Anne Marie Britogers Reg Allergies As of Date: 03/17/2019 Noted [...] artery stent placement- 2006 [Z95*11/14/2015 Atherosclerosis of [place] coronary artery of na*11/14/2015 Asymptomatic cholelithiasis [K80.20] [...] Encounter Status:Closed by JO PEREZ on 03/18/19 [facility] OBSOLETE Refill (AGC) EZRA GONZALEZ ([id number]) 1935 F Date Time Provider Department 03/17/19 [...] Patient next appointment: 04/02/2019 Patient Phone numbers: [phone] (home) Request is for script(s) to be [...] artery stent placement- 2006 [Z95*11/14/2015 Atherosclerosis of [place] coronary artery of na*11/14/2015 Asymptomatic cholelithiasis [K80.20] [...] Encounter Status:Closed by JO PEREZ on 03/18/19 [facility] Inocencia 02-04-2019 CNOV Office Visit (AGHWW1 ) EZRA GONZALEZ ([id number]) 1935 F Date Time Provider Department 02/04/19 1:30 PM CRUZ SANCHEZ AGHWW1 During your visit today, we recorded the following information about you: Respiration Weight Height 17/minute 80.7 kg 1.676 m Cruz Sanchez MD 02/04/2019 4:40 PM Signed HISTORY OF PRESENT ILLNESS: Ezra Gonzalez was provided orthopedic evaluation regarding right shoulder complaints. Patient is an 83-year-old juaqv-itxv-gmtqdcls female who is previously known status post [...] associated with diabetes mellitus (HCC) - Old [place] (myocardial infarction) 2006 - On anticoagulant therapy - On watermaster drug therapy - Osteoarthritis - Peripheral venous [...] conditions CARDIOVASCULAR: A-Fib, Coronary Arteriosclerosis, HTN, Old [place], Peripheral Venous Inufficiency, MSK: Degenerative Joint Disease, [...] be a somewhat guarded medical candidate. MD Curz Bolton MD 02/04/2019 2:48 PM Signed Patient [...] GENERAL 3V OR MORE AP/TRUE AP/OTHER RT [[id number]] Order #: [id number] CONSULT TO PHYSICAL THERAPY (AG) [[id number]] Order #: [id number]: 1 DRAIN/INJECT LARGE JOINT/BURSA [[id number]] Order #: [id number] [] betamethasone acetate-betamethasone sodium phosphate 12 mg [...] stent placement- 2006 [Z95*INVALID FOR* Atherosclerosis of [place] coronary artery of na*INVALID FOR* Asymptomatic cholelithiasis [...] Status:Closed by CRUZ SANCHEZ MD on 02/04/19 [facility] PROGRESSon 02-04-2019 PROGRESS HNO ID: [id number] Author: Cruz Sanchez Service: ? Author Type: Physician Type: Progress Notes Filed: 02/04/2019 4:40 PM Note Text: HISTORY OF PRESENT ILLNESS: Ezra Gonzalez was provided orthopedic evaluation regarding right shoulder complaints. Patient is an 83-year-old oxuxd-teyk-buwihlag female who is previously known status post [...] associated with diabetes mellitus (HCC) - Old [place] (myocardial infarction) 2006 - On anticoagulant therapy - On assisted drug therapy - Osteoarthritis - Peripheral venous [...] conditions CARDIOVASCULAR: A-Fib, Coronary Arteriosclerosis, HTN, Old [place], Peripheral Venous Inufficiency, MSK: Degenerative Joint Disease, [...] somewhat guarded medical candidate. Cruz Sanchez MD [facility] OBSOLETEon 01-21-2019 OBSOLETE Refill (AGCARDPOB) EZRA GONZALEZ ([id number]) 1935 F Date Time Provider Department 01/21/19 MICHAEL LUO During your visit today, we [...] Myalgias Date Reviewed: 11/27/2018 Reviewed by: Vika ([facility] [address]) Brian - Fully Assessed Reason for Visit: [...] stent placement- 2006 [Z95*INVALID FOR* Atherosclerosis of [place] coronary artery of na*INVALID FOR* Asymptomatic cholelithiasis [...] Status:Closed by RICKEY CHAVARRIA MD on 01/21/19 [facility]LETE [facility] EZRA GONZALEZ ([id number]) 1935 F Date Time Provider Department 01/21/19 JO PEREZ [facility] During your visit today, we recorded the following information about you: Anne Marie Hobbs Reg 01/21/2019 12:05 PM Signed Pharmacy faxed requesting the following refill. Pending Prescriptions Disp Refills FUROSEMIDE 20 MG TABLET 90 tablet 2 Sig: TAKE ONE TABLET BY MOUTH ONCE DAILY SHAHEEN: Yes Last refill: 01/05/2018 Patient last appointment: 09/30/2018 Patient next appointment: 04/02/2019 Patient Phone numbers: [phone] (home) Request is for script(s) to be [...] Myalgias Date Reviewed: 11/27/2018 Reviewed by: Vika ([facility]) Brian - Fully Assessed Reason for Visit: [...] stent placement- 2006 [Z95*INVALID FOR* Atherosclerosis of lower [place] coronary artery of na*INVALID FOR* Asymptomatic cholelithiasis [...] Encounter Status:Closed by JO PEREZ on 01/21/19 [facility] CNTHERAPYon 12-14-2018 CNTHERAPY OT/PT/Speech Visit (IAST) EZRA GONZALEZ ([id number]) 1935 F Date Time Provider Department 12/14/18 11:00 AM ANOOP COLLAZO ([facility]) AKST Date Time Provider Department Center 12/14/2018 11:00 AM [id number], SHARON [facility] Reason for Visit: Difficulty In [...] Myalgias Date Reviewed: 11/27/2018 Reviewed by: V[facility] Castro[facility] StreetFinesse Torres - Fully Assessed Prescriptions as of 12/14/2018 [...] 1,000 Units by mouth onc* Progress Notes: Anoop Collazo, Jazmyn, AUD 12/14/2018 4:44 PM Signed [facility] AUDIOLOGIC EVALUATION REPORT 12/14/2018 Page 1 of 3 Patient: Ezra Gonzalez : 1935 Referred by: Jo Perez (PCP: Yazmin) Referred for: Evaluation of suspected change in hearing, tinnitus, or balance. Referral documented: In an order in [facility]: OTHER ORDERS: : CONSULT TO AUDIOLOGY FOR DIAGNOSTIC TESTING [9003] (Order [id number]) Patient's major complaints: Progressively increasing difficulty in [...] --Pure tone audiometry using insert earphones demonstrates ylkd-te-vbpptlvmqd severe level sensorineural type hearing loss, worse [...] up w/ referring physician. Report routed via [employer] inbox to Dr. Perez on 12/14/2018 -Re-evaluation [...] Audiogram can be also be viewed in [employer] Smart[employer]:Audiology: Audiometry. OAE and tympanometry results can be viewed in [employer] Scanned Documents. RIGHT EAR Hearing Sensitivity: 250-500HZ: WNL; 750-2000Hz:mild; 3000-8000Hz: moderate-severe SNHL Word Recognition Score (order by difficulty 10 word list): Excellent (90%) at slt amplified loudness (fair at conversational loudness) Tympanometry: Type A : Normal ME function. Otoacoustic Emissions results: 750-3000Hz: WNL; 5780-5782: reduced; 8000Hz: absent. LEFT EAR Hearing Sensitivity: 250-500HZ: WNL; 750-3000Hz: moderate; 6000-8000Hz: severe SNHL Word Recognition Score (order by difficulty 10 word list): Excellent (90%) at amplified loudness (poor at conversational loudness) Tympanometry: Type A : Normal ME function. Otoacoustic Emissions results: 750-1000Hz: absent; 2463-6548: reduced; 6000-8000Hz: absent. William Hinson. Child Development Assistant 12/14/2018 3:30 PM Ezra Gonzalez : 1935 [...] during this visit: Audiometry Letter Text Normal [facility] OBSOLETEon 12-14-2018 OBSOLETE Refill ([facility]) EZRA GONZALEZ ([id number]) 1935 F Date Time Provider Department 12/14/18 JO PEREZ [facility] During your visit today, we recorded the following information about you: Robert Diaz CMA 12/16/2018 1:00 PM Signed Patient called requesting the following refill. Pending Prescriptions Disp Refills RANITIDINE 150 MG TABLET 90 tablet 0 Sig: TAKE ONE TABLET BY MOUTH EVERY DAY SHAHEEN: Yes Last refill: 09/16/2018 Patient last appointment: 10/20/2018 Patient next appointment: 04/02/2019 Patient Phone numbers: [phone] (home) Request is for script(s) to be [...] Myalgias Date Reviewed: 11/27/2018 Reviewed [facility]: [facility] Brian - Fully Assessed Reason for Visit: [...] stent placement- 2006 [Z95*INVALID FOR* Atherosclerosis of lower [place] coronary artery of na*INVALID FOR* Asymptomatic cholelithiasis [...] Encounter Status:Closed by JO PEREZ on 12/16/18 [facility] PROGRESSon 12-14-2018 PROGRESS HNO ID: [id number] Author: Anoop Crisostomo) JAZMYN Collazo Service: ? Author Type: Child Development Assistant Type: Progress Notes Filed: 12/14/2018 4:44 PM Note Text: [facility] AUDIOLOGIC EVALUATION REPORT 12/14/2018 Page 1 of 3 Patient: Ezra Snell Lisa : 1935 Referred by: Jo Perez (PCP: Yazmin) Referred for: Evaluation of suspected change in hearing, tinnitus, or balance. Referral documented: In an order in Epic: OTHER ORDERS: : CONSULT TO AUDIOLOGY FOR DIAGNOSTIC TESTING [5003] (Order [id number]) Patient's major complaints: Progressively increasing difficulty in [...] --Pure tone audiometry using insert earphones demonstrates bqhx-lg-tvuwxoeckf severe level sensorineural type hearing loss, worse [...] up w/ referring physician. Report routed via [employer] inbox to Dr. Perez on 12/14/2018 -Re-evaluation [...] Audiogram can be also be viewed in [employer]:Audiology: Audiometry. OAE and tympanometry results can be viewed in [employer] Scanned Documents. RIGHT EAR Hearing Sensitivity: 250-500HZ: WNL; 750-2000Hz:mild; 3000-8000Hz: moderate-severe SNHL Word Recognition Score (order by difficulty 10 word list): Excellent (90%) at slt amplified loudness (fair at conversational loudness) Tympanometry: Type A : Normal ME function. Otoacoustic Emissions results: 750-3000Hz: WNL; 4734-4116: reduced; 8000Hz: absent. LEFT EAR Hearing Sensitivity: 250-500HZ: WNL; 750-3000Hz: moderate; 6000-8000Hz: severe SNHL Word Recognition Score (order by difficulty 10 word list): Excellent (90%) at amplified loudness (poor at conversational loudness) Tympanometry: Type A : Normal ME function. Otoacoustic Emissions results: 750-1000Hz: absent; 4194-3918: reduced; 6000-8000Hz: absent. William Hinson. Child Development Assistant 12/14/2018 3:30 PM Ezra Gonzalez : 1935 Page 3 of 3 GARCÍA Abbreviation Definition Degree of hearing sensitivity dB range WNL within normal limits WNL 0 - 20 SNHL sensorineural hearing loss Mild 20-40 CHL conductive hearing loss Moderate 40-55 MHL mixed hearing loss Moderately-Severe 55-70 ME middle ear Severe 70-90 OAE Distortion Product Otoacoustic Emissions Profound 90 + TM tympanic membrane Normal [facility] CNOVon 11-27-2018 CNOV Office Visit ([facility]) EZRA GONZALEZ ([id number]) 1935 F Date Time Provider Department 11/27/18 11:00 AM RICKEY CHAVARRIA [facility] During your visit today, we recorded the following information about you: Pulse Respiration Blood pressure Weight 66/minute 18/minute 124/70 80.7 kg Height 1.575 m Vika Torres CMA 11/27/2018 11:00 AM Signed Patient has no cardiac complaints today. Vika Chavarria MD 11/27/2018 11:24 AM Signed PRIMARY CARE PHYSICIAN: Jo Perez MD [address] [place] [address] HISTORY OF PRESENT ILLNESS: Ms. Gonzalez is [...] She is happy again. 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 Ezra [...] of the time was spent in direct, ogwx-nk-janb, contact with the patient for management and counseling. 1. Essential hypertension - ICD9: 401.9, ICD10: I10 (primary diagnosis) 2. Obesity, Class I, BMI 30-34.9 - ICD9: 278.00, ICD10: E66.9 3. Mixed hyperlipidemia - ICD9: 272.2, ICD10: E78.2 4. Paroxysmal atrial fibrillation (HCC) - ICD9: 427.31, ICD10: I48.0 5. Chronic anticoagulation - ICD9: V58.61, ICD10: Z79.01 Rickey Chavarria M.D. [facility] Referring Provider: SELF [200] Allergies As of Date: 11/27/2018 Noted Allergy Reaction CODEINE 03/20/2015 16 - Unknown CRESTOR (ROSUVASTATIN) 03/20/2015 14 - Other: See Comments Comments: Myalgias DEMEROL (MEPERIDINE) 03/20/2015 8 - GI Upset LATEX 03/20/2015 2 - Rash LIPITOR (ATORVASTATIN) 03/20/2015 14 - Other: See Comments Comments: Myalgias Date Reviewed: 11/27/2018 Reviewed [facility]: [facility] Brian - Fully Assessed Reason for Visit: CARD Follow Up Annual [1232] Primary Visit Diagnosis:Essential hypertension [I10] Other Visit Diagnoses:Obesity, Class I, BMI 30-34.9 [E66.9] Mixed hyperlipidemia [E78.2] Paroxysmal atrial fibrillation (HCC) [I48.0] Chronic anticoagulation [Z79.01] Order(s):ECG B/O W INTERP (MED OFFICE) [ECG06] Order #: [id number] Prescriptions as of 11/27/2018 Sig: SIMVASTATIN 20 [...] stent placement- 2006 [Z95*INVALID FOR* Atherosclerosis of lower [place] coronary artery of na*INVALID FOR* Asymptomatic cholelithiasis [...] has no cardiac complaints today. Vika Torres [facility] Disposition: Return in about 1 year (around 11/28/2019). Follow-up and Disposition History Recorded Letter Text Encounter Status:Closed by RICKEY CHAVARRIA MD on 11/27/18 Normal [facility] PROGRESSon 11-27-2018 PROGRESS HNO ID: [id number] Author: Rickey Chavarria Service: ? Author Type: Physician Type: Progress Notes Filed: 11/27/2018 11:24 AM Note Text: PRIMARY CARE PHYSICIAN: Jo Perez MD [address] [place] [address] HISTORY OF PRESENT ILLNESS: Ms. Gonzalez is [...] again. 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 Ezra [...] of the time was spent in direct, rose-qo-hjyy, contact with the patient for management and counseling. 1. Essential hypertension - ICD9: 401.9, ICD10: I10 (primary diagnosis) 2. Obesity, Class I, BMI 30-34.9 - ICD9: 278.00, ICD10: E66.9 3. Mixed hyperlipidemia - ICD9: 272.2, ICD10: E78.2 4. Paroxysmal atrial fibrillation (HCC) - ICD9: 427.31, ICD10: I48.0 5. Chronic anticoagulation - ICD9: V58.61, ICD10: Z79.01 Rickey Chavarria M.D. [facility] Normal [facility] BONE DENSITY STUDY BY XRAY 7 7080on 07-15-2017 BONE DENSITY STUDY BY XRAY [id number] Performed at [facility] APPROVED BY: Kemar Adams MD EXAMINATION: BONE MINERAL DENSITOMETRY (DEXA SCAN) EXAM DATE: 07/15/2017 09:43 CLINICAL INDICATION: 82-year-old postmenopausal female , follow-up osteoporosis screening. COMPARISON: DEXA scan 10/06/2013. DXA HWW-Inkshares v.13.4 examination is performed on the lumbar [...] is a trademark of the [employer]'s [facility], a WHO Collaborating [place]. This applies to men over 50 and [...] high risk for accelerated bone loss). Normal [facility] MAMMOGRAM SCREENING WITH CAD IF PERFORMEDon 06-27-2017 MAMMOGRAM SCREENING WITH CAD IF PERFORMED Performed at [facility] APPROVED BY: Lucas Garrido MD #[id number] - MAMMOGRAM SCREENING WITH CAD IF PERFORMEDBILATERAL DIGITAL SCREENING MAMMOGRAM WITH CAD WITH MEDIOLATERAL OBLIQUE CRANIOCAUDAL: 06/27/2017CLINICAL: Routine screening mammogram. Patient reports no breast problems. Comparison is made to exams dated: 07/22/2016 mammogram - [facility], 06/26/2016 mammogram, 06/09/2015 mammogram, and 04/01/2014 mammogram - [facility]. There are scattered fibroglandular elements in both breasts. Current study was also evaluated with a Computer Aided Detection (CAD) system. No significant masses, calcifications, or other findings are seen in either breast. There has been no significant interval change. IMPRESSION: NEGATIVEThere is no mammographic evidence of malignancy. A 1 year screening mammogram is recommended. The patient was notified of the results. Lucas cortesg/penrad:06/27/2017 11:38:04 Low Pressure Firer: Loan Summers)(M), [facility] Birad 1 or 2 Mammogram BI-RADS: 1 Negative Normal [facility] Otheron 02-03-2015 CONVERTED CLINICAL HISTORY OPERATIVE PROCEDURE: Colonoscopy CLINICAL INFORMATION: Screening [facility] CONVERTED ELECTRONIC SIGNATURE OM PATRICK M.D., PATHOLOGIST (Electronic signature on file) Final Signed Out: 02/03/2015 12:44 [facility] CONVERTED FINAL DIAGNOSIS FINAL DIAGNOSI S: A) COLON, ASCENDING, BIOPSIES - FRAGMENTS OF TUBULAR ADENOMA. B) COLON, RANDOM BIOPSIES - NO PATHOLOGIC ABNORMALITIES. [facility] CONVERTED GROSS DESCRIPTION GROSS DESCRIPTION: A) [...] totally submitted in cassette B x 3. SMS:hlm [facility] CONVERTED ORDERING PROVIDER [facility]ing [facility] CONVERTED ELECTRONIC SIGNATURE RAVINDER HAN M.D., PATHOLOGIST (Electronic signature on file) Final Signed Out: 04/19/2010 14:33 [facility] CONVERTED FINAL DIAGNOSIS FINAL DIAGNOSI S: RIGHT SHOULDER, EXCISION - BONE AND ATTACHED CARTILAGE WITH DEGENERATIVE CHANGES. SYNOVIUM WITH NONSPECIFIC REACTIVE CHANGES AND FOCAL MILD CHRONIC INFLAMMATION. SPECIMEN: SHOULDER [facility] CONVERTED GROSS DESCRIPTION GROSS DESCRIPTION: Rt shoulder tissue The container is labeled right shoulder tissue. Received are portions of pink-montague soft tissue and red-montague bone measuring 3 x 3 x 1 cm in aggregate. Sample of soft tissue is submitted in cassette 1, sample of bone is submitted in cassette 2 following decal. SMS/lrs MICROSCOPIC DESCRIPTION: Slides reviewed. 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 SPECIMEN: FEMORAL HEAD [facility] CONVERTED GROSS DESCRIPTION GROSS DESCRIPTION: Left [...] decal. SMS:ATP:hlm MICROSCOPIC DESCRIPTION: Slides reviewed. SDS/gpl [facility] CONVERTED ORDERING PROVIDER Ordering Provider: CLOTILDE DOSS [facility] Thyroidon 08-02-2009 TSH Dylan TYLER M.D., PATHOLOGIST (Electronic signature on file) Final Signed Out: 08/02/2009 14:47 [facility] Cardiacon 05-11-2001 Cholesterol [Mass/Vol] Ordering Provider : SAE RESENDIZ [facility] Otheron 05-11-2001 CONVERTED ELECTRONIC SIGNATURE MICHAEL HAWTHORNE M.D., PATHOLOGIST (Electronic signature on file) Final Signed Out: 05/11/2001 11:39 [facility] CONVERTED FINAL DIAGNOSIS TISSUE, REMOVE D AT RELEASE OF RIGHT RING FINGER - FIBROCOLLAGENOUS TISSUE WITH FOCAL FIBROBLASTIC REACTION AND FOCAL MIXOID CHANGE. ATTACHED SMALL AMOUNT OF TISSUE CONSISTENT WITH SYNOVIUM. [facility] Vital Signs Date Time Vital Sign Value Performing Clinician Facility 09-13-2024 14:00-0400 Body height 160.[address] Alexandra Hagen MD Work Phone: [facility] 09-13-2024 14:00-0400 Body mass index (BMI) [Ratio] 30.7 kg/m2 Dr. Alexandra Hagen MD Work Phone: [facility] 09-13-2024 14:00-0400 Body temperature 92.6 [degF] Dr. Alexandra Hagen MD Work Phone: [facility] 09-13-2024 14:00-0400 Body weight 78.[address] Alexandra Hagen MD Work Phone: [facility] 09-13-2024 14:00-0400 Diastolic blood pressure 79 mm[Hg] Dr. Alexandra Hagen MD Work Phone: [facility] 09-13-2024 14:00-0400 Heart rate 83 /min Dr. Alexandra Hagen MD Work Phone: [facility] 09-13-2024 14:00-0400 Respiratory rate 17 /min Dr. Alexandra Hagen MD Work Phone: [facility] 09-13-2024 14:00-0400 SaO2% (BldA) [Mass fraction] 97 % Dr. Alexandra Hagen MD Work Phone: [facility] 09-13-2024 14:00-0400 Systolic blood pressure 126 mm[Hg] Dr. Alexandra Hagen MD Work Phone: 8(679)308-420022 [place] [address] 09-11-2024 13:55-0400 Body mass index (BMI) [Ratio] 30.3 kg/m2 Dr. Alexandra Hagen MD Work Phone: 8(255)626-339222 [place] [address] 09-11-2024 09:09-0400 Body temperature 97.8 [degF] Dr. Alexandra Hagen MD Work Phone: 4(942)762-397122 [place] [address] 09-11-2024 09:09-0400 Diastolic blood pressure 85 mm[Hg] Dr. Alexandra Hagen MD Work Phone: 3(926)942-906522 [place] [address] 09-11-2024 09:09-0400 Heart rate 84 /min Dr. Alexandra Hagen MD Work Phone: 8(671)287-633522 [place] [address] 09-11-2024 09:09-0400 Respiratory rate 18 /min Dr. Alexandra Hagen MD Work Phone: 5(844)776-015622 [place] [address] 09-11-2024 09:09-0400 SaO2% (BldA) [Mass fraction] 98 % Dr. Alexandra Hagen MD Work Phone: 7(717)645-508622 [place] [address] 09-11-2024 09:09-0400 Systolic blood pressure 174 mm[Hg] Dr. Alexandra Hagen MD Work Phone: 3(558)680-038422 [place] [address] 09-10-2024 17:17-0400 Body height 160.[address] Alexandra Hagen MD Work Phone: 4(156)999-788622 [place] [address] 09-10-2024 17:17-0400 Body weight 77.[address] Alexandra Hagen MD Work Phone: 4(536)568-114822 [place] [address] 09-10-2024 16:30-0400 Diastolic blood pressure 73 mm[Hg] Dr. Alexandra Hagen MD Work Phone: 5(771)125-658722 [place] [address] 09-10-2024 16:30-0400 Heart rate 79 /min Dr. Alexandra Hagen MD Work Phone: 9(064)314-960122 [place] [address] 09-10-2024 16:30-0400 Respiratory rate 20 /min Dr. Alexandra Hagen MD Work Phone: 2(257)694-824689 [place] [address] 09-10-2024 16:30-0400 SaO2% (BldA) [Mass fraction] 93 % Dr. Alexandra Hagen MD Work Phone: 8(574)138-685322 [place] [address] 09-10-2024 16:30-0400 Systolic blood pressure 118 mm[Hg] Dr. Alexandra Hagen MD Work Phone: 0(011)309-743822 [place] [address] 09-10-2024 16:07-0400 Body temperature 98.3 [degF] Dr. Alexandra Hagen MD Work Phone: 1(920)378-590522 [place] [address] 09-10-2024 14:19-0400 Body height 160.[address] Alexandra Hagen MD Work Phone: 5(838)655-672422 [place] [address] 09-10-2024 14:19-0400 Body mass index (BMI) [Ratio] 26.5 kg/m2 Dr. Alexandra Hagen MD Work Phone: 3(877)084-251722 [place] [address] 09-10-2024 14:19-0400 Body weight 68.[address] Alexandra Hagen MD Work Phone: 5(653)767-968322 [place] [address] 09-08-2024 15:30-0400 Heart rate 64 /min Dr. Alexandra Hagen MD Work Phone: 0(728)018-052322 [place] [address] 09-08-2024 15:30-0400 Respiratory rate 23 /min Dr. Alexandra Hagen MD Work Phone: 5(248)421-693322 [place] [address] 09-08-2024 15:30-0400 SaO2% (BldA) [Mass fraction] 97 % Dr. Alexanrda Hagen MD Work Phone: 9(429)234-877089 [place] [address] 09-08-2024 12:22-0400 Body height 160.[address] Alexandra Hagen MD Work Phone: 9(861)231-170389 [place] [address] 09-08-2024 12:22-0400 Body mass index (BMI) [Ratio] 33.5 kg/m2 Dr. Alexandra Hagen MD Work Phone: [facility] 09-08-2024 12:22-0400 Body temperature 98 [degF] Dr. Alexandra Hagen MD Work Phone: [facility] 09-08-2024 12:22-0400 Body weight 85.[address] Alexandra Hagen MD Work Phone: 4(280)849-374056 [address] 09-08-2024 12:22-0400 Diastolic blood pressure 70 mm[Hg] Dr. Alexandra Hagen MD Work Phone: [facility] 09-08-2024 12:22-0400 Systolic blood pressure 131 mm[Hg] Dr. Alexandra Hagen MD Work Phone: 2(392)802-100856 [address] 07-01-2024 10:38-0400 Body height 160.[address] Alexandra Hagen MD Work Phone: 4(798)696-715756 [address] 07-01-2024 10:38-0400 Body mass index (BMI) [Ratio] 30.8 kg/m2 Dr. Alexandra Hagen MD Work Phone: [facility] 07-01-2024 10:38-0400 Body weight 78.[address] Alexandra Hagen MD Work Phone: 5(237)829-414856 [address] 07-01-2024 10:38-0400 Diastolic blood pressure 85 mm[Hg] Dr. Alexandra Hagen MD Work Phone: 1(226)968-044189 [place] [address] 07-01-2024 10:38-0400 Heart rate 60 /min Dr. Alexandra Hagen MD Work Phone: [facility] 07-01-2024 10:38-0400 Respiratory rate 16 /min Dr. Alexandra Hagen MD Work Phone: 5(015)616-872489 [place] [address] 07-01-2024 10:38-0400 Systolic blood pressure 184 mm[Hg] Dr. Alexandra Hagen MD Work Phone: [facility] 05-10-2024 14:35-0500 Body height 160.[address] Alexandra Hagen MD Work Phone: [facility] 05-10-2024 14:35-0500 Body mass index (BMI) [Ratio] 30.9 kg/m2 Dr. Alexandra Hagen MD Work Phone: [facility] 05-10-2024 14:35-0500 Body temperature 97.8 [degF] Dr. Alexandra Hagen MD Work Phone: [facility] 05-10-2024 14:35-0500 Body weight 79.[address] Alexandra Hagen MD Work Phone: [facility] 05-10-2024 14:35-0500 Diastolic blood pressure 86 mm[Hg] Dr. Alexandra Hagen MD Work Phone: [facility] 05-10-2024 14:35-0500 Heart rate 75 /min Dr. Alexandra Hagen MD Work Phone: [facility] 05-10-2024 14:35-0500 Respiratory rate 16 /min Dr. Alexandra Hagen MD Work Phone: [facility] 05-10-2024 14:35-0500 SaO2% (BldA) [Mass fraction] 94 % Dr. Alexandra Hagen MD Work Phone: [facility] 05-10-2024 14:35-0500 Systolic blood pressure 140 mm[Hg] Dr. Alexandra Hagen MD Work Phone: [facility] 06-20-2023 11:10-0400 Diastolic blood pressure 92 mm[Hg] Sae Conde MD Work Phone: [facility] 06-20-2023 11:10-0400 Heart rate 88 /min Sae Conde MD Work Phone: [facility] 06-20-2023 11:10-0400 Systolic blood pressure 173 mm[Hg] Sae Conde MD Work Phone: [facility] 06-20-2023 05:34-0400 Body temperature 97.39 [degF] Sae Conde MD Work Phone: [facility] 06-20-2023 05:34-0400 Respiratory rate 20 /min Sae Conde MD Work Phone: [facility] 06-20-2023 05:34-0400 SaO2% (BldA) [Mass fraction] 95 % Sae Conde MD Work Phone: [facility] 06-17-2023 18:30-0400 Body height 160 cm Sae Conde MD Work Phone: [facility] 06-17-2023 18:30-0400 Body mass index (BMI) [Ratio] 30.83 kg/m2 Sae Conde MD Work Phone: [facility] 06-17-2023 18:30-0400 Body weight 78.93 kg Sae Conde MD Work Phone: [facility] 06-16-2023 11:02-0400 Body temperature 96.4 [degF] Dr. Rosemary Doran Work Phone: [facility] 06-16-2023 11:02-0400 Diastolic blood pressure 84 mm[Hg] Dr. Rosemary Doran Work Phone: [facility] 06-16-2023 11:02-0400 Heart rate 72 /min Dr. Rosemary Doran Work Phone: [facility] 06-16-2023 11:02-0400 Respiratory rate 16 /min Dr. Rosemary Doran Work Phone: [facility] 06-16-2023 11:02-0400 SaO2% (BldA) [Mass fraction] 96 % Dr. Rosemary Doran Work Phone: [facility] 06-16-2023 11:02-0400 Systolic blood pressure 157 mm[Hg] Dr. Rosemary Doran Work Phone: [facility] 06-16-2023 08:33-0400 Body height 160.[address] Rosemary Doran Work Phone: [facility] 06-16-2023 08:33-0400 Body mass index (BMI) [Ratio] 33.1 kg/m2 Dr. Rosemary Doran Work Phone: [facility] 06-16-2023 08:33-0400 Body weight 84.[address] Rosemary Doran Work Phone: [facility] 05-19-2023 11:21-0500 Body height 160.[address] Rosemary Doran [facility] [facility] 05-19-2023 11:21-0500 Body mass index (BMI) [Ratio] 31.6 kg/m2 Dr. Rosemary Doran Work Phone: [facility] 05-19-2023 11:21-0500 Body temperature 97.8 [degF] Dr. Rosemary Doran Work Phone: [facility] 05-19-2023 11:21-0500 Body weight 81.[address] Rosemary Doran Work Phone: [facility] 05-19-2023 11:21-0500 Diastolic blood pressure 90 mm[Hg] Dr. Rosemary Doran Work Phone: [facility] 05-19-2023 11:21-0500 Heart rate 88 /min Dr. Rosemary Doran Work Phone: [facility] 05-19-2023 11:21-0500 Respiratory rate 17 /min Dr. Rosemary Doran Work Phone: [facility] 05-19-2023 11:21-0500 SaO2% (BldA) [Mass fraction] 98 % Dr. Rosemary Doran Work Phone: [facility] 05-19-2023 11:21-0500 Systolic blood pressure 152 mm[Hg] Dr. Rosemary Doran Work Phone: [facility] 05-15-2023 09:01-0500 Body mass index (BMI) [Ratio] 31.6 kg/m2 Dr. Rosemary Doran Work Phone: [facility] 05-15-2023 09:01-0500 Body weight 81.[address] Rosemary Doran Work Phone: [facility] 05-15-2023 09:01-0500 Diastolic blood pressure 85 mm[Hg] Dr. Rosemary Doran Work Phone: [facility] 05-15-2023 09:01-0500 Heart rate 78 /min Dr. Rosemary Doran Work Phone: [facility] 05-15-2023 09:01-0500 Respiratory rate 18 /min Dr. Rosemary Doran Work Phone: [facility] 05-15-2023 09:01-0500 Systolic blood pressure 156 mm[Hg] Dr. Rosemary Doran Work Phone: [facility] 01-20-2023 08:05-0400 Body height 160.[address] Rosemary Doran Work Phone: [facility] 01-20-2023 08:05-0400 Body mass index (BMI) [Ratio] 32 kg/m2 Dr. Rosemary Doran Work Phone: [facility] 01-20-2023 08:05-0400 Body temperature 98 [degF] Dr. Rosemary Doran Work Phone: [facility] 01-20-2023 08:05-0400 Body weight 82.[address] Rosemary Doran Work Phone: [facility] 01-20-2023 08:05-0400 Diastolic blood pressure 90 mm[Hg] Dr. Rosemary Doran Work Phone: [facility] 01-20-2023 08:05-0400 Heart rate 88 /min Dr. Rosemary Doran Work Phone: [facility] 01-20-2023 08:05-0400 Respiratory rate 17 /min Dr. Rosemary Doran Work Phone: [facility] 01-20-2023 08:05-0400 SaO2% (BldA) [Mass fraction] 97 % Dr. Rosemary Doran Work Phone: [facility] 01-20-2023 08:05-0400 Systolic blood pressure 140 mm[Hg] Dr. Rosemary Doran Work Phone: [facility] 12-28-2022 11:09-0400 Body temperature 97.8 [degF] Dr. Rosemary Doran Work Phone: [facility] 12-28-2022 11:09-0400 Diastolic blood pressure 79 mm[Hg] Dr. Rosemary Doran Work Phone: [facility] 12-28-2022 11:09-0400 Heart rate 84 /min Dr. Rosemary Doran Work Phone: [facility] 12-28-2022 11:09-0400 Respiratory rate 16 /min Dr. Rosemary Doran Work Phone: [facility] 12-28-2022 11:09-0400 SaO2% (BldA) [Mass fraction] 96 % Dr. Rosemary Doran Work Phone: [facility] 12-28-2022 11:09-0400 Systolic blood pressure 169 mm[Hg] Dr. Rosemary Doran Work Phone: [facility] 12-27-2022 19:16-0400 Body height 160.[address] Rosemary Doran Work Phone: [facility] 12-27-2022 19:16-0400 Body mass index (BMI) [Ratio] 32.1 kg/m2 Dr. Rosemary Doran Work Phone: [facility] 12-27-2022 19:16-0400 Body weight 82.[address] Rosemary Doran Work Phone: [facility] 12-05-2022 09:25-0400 Body temperature 98.2 [degF] Dr. Rosemary Doran Work Phone: [facility] 12-05-2022 09:25-0400 Body weight 82.[address] Rosemary Doran Work Phone: [facility] 12-05-2022 09:25-0400 Diastolic blood pressure 85 mm[Hg] Dr. Rosemary Doran Work Phone: [facility] 12-05-2022 09:25-0400 Heart rate 90 /min Dr. Rosemary Doran Work Phone: [facility] 12-05-2022 09:25-0400 SaO2% (BldA) [Mass fraction] 95 % Dr. Rosemary Doran Work Phone: [facility] 12-05-2022 09:25-0400 Systolic blood pressure 145 mm[Hg] Dr. Rosemary Doran Work Phone: [facility] 11-18-2022 11:24-0400 Diastolic blood pressure 82 mm[Hg] Dr. Rosemary Doran Work Phone: [facility] 11-18-2022 11:24-0400 Heart rate 76 /min Dr. Rosemary Doran Work Phone: [facility] 11-18-2022 11:24-0400 Respiratory rate 15 /min Dr. Rosemary Doran Work Phone: [facility] 11-18-2022 11:24-0400 SaO2% (BldA) [Mass fraction] 98 % Dr. Rosemary Doran Work Phone: [facility] 11-18-2022 11:24-0400 Systolic blood pressure 137 mm[Hg] Dr. Rosemary Doran Work Phone: [facility] 11-18-2022 07:55-0400 Body height 160.[address] Rosemary Doran Work Phone: [facility] 11-18-2022 07:55-0400 Body mass index (BMI) [Ratio] 32.9 kg/m2 Dr. Rosemary Doran Work Phone: [facility] 11-18-2022 07:55-0400 Body weight 84.[address] Rosemary Doran Work Phone: [facility] 11-18-2022 07:50-0400 Body temperature 97.8 [degF] Dr. Rosemary Doran Work Phone: [facility] 11-15-2022 10:11-0400 Body mass index (BMI) [Ratio] 32.2 kg/m2 Dr. Rosemary Doran Work Phone: [facility] 11-15-2022 08:55-0400 Body temperature 97.7 [degF] Dr. Rosemary Doran Work Phone: [facility] 11-15-2022 08:55-0400 Diastolic blood pressure 78 mm[Hg] Dr. Rosemary Doran Work Phone: [facility] 11-15-2022 08:55-0400 Heart rate 68 /min Dr. Rosemary Doran Work Phone: [facility] 11-15-2022 08:55-0400 Respiratory rate 16 /min Dr. Rosemary Doran Work Phone: [facility] 11-15-2022 08:55-0400 SaO2% (BldA) [Mass fraction] 96 % Dr. Rosemary Doran Work Phone: [facility] 11-15-2022 08:55-0400 Systolic blood pressure 136 mm[Hg] Dr. Rosemary Doran Work Phone: [facility] 11-14-2022 13:12-0400 Body weight 82.[address] Rosemary Doran Work Phone: [facility] 11-14-2022 12:30-0400 Body temperature 97.6 [degF] Dr. Rosemary Doran Work Phone: [facility] 11-14-2022 12:30-0400 Diastolic blood pressure 101 mm[Hg] Dr. Rosemary Doran Work Phone: [facility] 11-14-2022 12:30-0400 Heart rate 64 /min Dr. Rosemary Doran Work Phone: [facility] 11-14-2022 12:30-0400 Respiratory rate 14 /min Dr. Rosemary Doran Work Phone: [facility] 11-14-2022 12:30-0400 SaO2% (BldA) [Mass fraction] 98 % Dr. Rosemary Doran Work Phone: [facility] 11-14-2022 12:30-0400 Systolic blood pressure 164 mm[Hg] Dr. Rosemary Doran Work Phone: [facility] 11-14-2022 11:02-0400 Body height 160.[address] Rosemary Doran Work Phone: [facility] 11-14-2022 11:02-0400 Body mass index (BMI) [Ratio] 33.7 kg/m2 Dr. Rosemary Doran Work Phone: [facility] 11-14-2022 11:02-0400 Body weight 86.[address] Rosemary Doran Work Phone: [facility] 10-15-2022 09:24-0400 Body height 160.[address] Rosemary Doran Work Phone: [facility] 10-15-2022 09:24-0400 Body mass index (BMI) [Ratio] 30.8 kg/m2 Dr. Rosemary Doran Work Phone: [facility] 10-15-2022 09:24-0400 Body weight 78.[address] Rosemary Doran Work Phone: [facility] 10-15-2022 09:24-0400 Diastolic blood pressure 87 mm[Hg] Dr. Rosemary Doran Work Phone: [facility] 10-15-2022 09:24-0400 Heart rate 73 /min Dr. Rosemary Doran Work Phone: [facility] 10-15-2022 09:24-0400 Respiratory rate 18 /min Dr. Rosemary Doran Work Phone: [facility] 10-15-2022 09:24-0400 Systolic blood pressure 149 mm[Hg] Dr. Rosemary Doran Work Phone: [facility] 09-18-2022 19:36-0400 Diastolic blood pressure 72 mm[Hg] Dr. Rosemary Doran Work Phone: [facility] 09-18-2022 19:36-0400 Systolic blood pressure 140 mm[Hg] Dr. Rosemary Doran Work Phone: [facility] 09-18-2022 08:05-0400 Body height 160.[address] Rosemary Doran Work Phone: [facility] 09-18-2022 08:05-0400 Body mass index (BMI) [Ratio] 31.8 kg/m2 Dr. Rosemary Doran Work Phone: [facility] 09-18-2022 08:05-0400 Body temperature 97.8 [degF] Dr. Rosemary Doran Work Phone: [facility] 09-18-2022 08:05-0400 Body weight 81.[address] Rosemary Doran Work Phone: [facility] 09-18-2022 08:05-0400 Heart rate 111 /min Dr. Rosemary Doran Work Phone: [facility] 09-18-2022 08:05-0400 Respiratory rate 17 /min Dr. Rosemary Doran Work Phone: [facility] 09-18-2022 08:05-0400 SaO2% (BldA) [Mass fraction] 99 % Dr. Rosemary Doran Work Phone: [facility] 09-08-2022 16:03-0400 Diastolic blood pressure 84 mm[Hg] Dr. Rosemary Doran Work Phone: [facility] 09-08-2022 16:03-0400 Heart rate 90 /min Dr. Rosemary Doran Work Phone: [facility] 09-08-2022 16:03-0400 Respiratory rate 20 /min Dr. Rosemary Doran Work Phone: [facility] 09-08-2022 16:03-0400 SaO2% (BldA) [Mass fraction] 97 % Dr. Rosemary Doran Work Phone: [facility] 09-08-2022 16:03-0400 Systolic blood pressure 157 mm[Hg] Dr. Rosemary Doran Work Phone: [facility] 09-08-2022 15:32-0400 Body mass index (BMI) [Ratio] 33.2 kg/m2 Dr. Rosemary Doran Work Phone: [facility] 09-08-2022 15:32-0400 Body weight [address] Rosemary Droan Work Phone: [facility] 09-08-2022 14:26-0400 Body temperature 96.8 [degF] Dr. Rosemary Doran Work Phone: [facility] 04-16-2022 14:26-0500 Body height 160.[address] Rosemary Doran Work Phone: [facility] 04-16-2022 14:26-0500 Body mass index (BMI) [Ratio] 30.6 kg/m2 Dr. Rosemary Doran Work Phone: [facility] 04-16-2022 14:26-0500 Body weight 78.[address] Rosemary Doran Work Phone: [facility] 04-16-2022 14:26-0500 Diastolic blood pressure 60 mm[Hg] Dr. Rosemary Doran Work Phone: [facility] 04-16-2022 14:26-0500 Heart rate 88 /min Dr. Rosemary Doran Work Phone: [facility] 04-16-2022 14:26-0500 Respiratory rate 18 /min Dr. Rosemary Doran Work Phone: [facility] 04-16-2022 14:26-0500 Systolic blood pressure 89 mm[Hg] Dr. Rosemary Doran Work Phone: [facility] 02-11-2022 02:02-0500 Diastolic blood pressure 82 mm[Hg] Dr. Rosemary Doran Work Phone: [facility] 02-11-2022 02:02-0500 Heart rate 74 /min Dr. Rosemary Doran Work Phone: [facility] 02-11-2022 02:02-0500 Respiratory rate 16 /min Dr. Rosemary Doran Work Phone: [facility] 02-11-2022 02:02-0500 SaO2% (BldA) [Mass fraction] 96 % Dr. Rosemary Doran Work Phone: [facility] 02-11-2022 02:02-0500 Systolic blood pressure 106 mm[Hg] Dr. Roseamry Doran Work Phone: [facility] 02-11-2022 00:07-0500 Body height 160.[address] Rosemary Doran Work Phone: [facility] Work Phone: 02-11-2022 00:07-0500 Body mass index (BMI) [Ratio] 33.1 kg/m2 Dr. Rosemary Doran Work Phone: [facility] 02-11-2022 00:07-0500 Body temperature 98.4 [degF] Dr. Rosemary Doran Work Phone: [facility] 02-11-2022 00:07-0500 Body weight 84.[address] Rosemary Doran Work Phone: [facility] 10-18-2021 10:26-0400 Body mass index (BMI) [Ratio] 33.1 kg/m2 Dr. Rosemary Doran Work Phone: [facility] Work Phone: 10-18-2021 10:26-0400 Body weight 84.[address] Rosemary Doran Work Phone: [facility] Work Phone: 10-18-2021 10:26-0400 Diastolic blood pressure 63 mm[Hg] Dr. Rosemary Doran Work Phone: [facility] Work Phone: 10-18-2021 10:26-0400 Heart rate 87 /min Dr. Rosemary Doran Work Phone: [facility] Work Phone: 10-18-2021 10:26-0400 Respiratory rate 20 /min Dr. Rosemary Doran Work Phone: [facility] Work Phone: 10-18-2021 10:26-0400 SaO2% (BldA) [Mass fraction] 96 % Dr. Rosemary Doran Work Phone: [facility] Work Phone: 10-18-2021 10:26-0400 Systolic blood pressure 101 mm[Hg] Dr. Rosemary Doran Work Phone: [facility] Work Phone: Encounters Encounter Date Encounter Type Care Provider Facility Start: 09-17-[address] [facility]: [facility] Start: 09-13-2024 End: 09-13-[address] Anant Juarez MD -[facility] Work Phone: Start: 09-13-2024 End: 09-13-[address] Alexandra Hagen MD Work Phone: [facility] Work Phone: Start: 09-13-2024 End: 09-13-2024 ambulatory [facility] Facility:[facility] Start: 09-11-2024 Non-patient / Non-visit Dr. Bai DO [facility] Work Phone: Start: 09-10-2024 End: 09-11-2024 ambulatory [facility] Facility:[facility] Start: 09-10-2024 End: 09-11-2024 Evaluation and management of inpatient Dr. Matthew Oro DO -[facility] Work Phone: Start: 09-10-2024 End: 09-11-[address] Alexandra Hagen MD Work Phone: [facility] Work Phone: Start: 09-08-2024 End: 09-08-2024 Emergency department patient visit Dr. Alexandra Hagen MD Work Phone: -Emergency Department Work Phone: Start: 08-18-2024 End: 08-18-[address] Alexandra Hagen MD Work Phone: [facility] Work Phone: Start: 08-18-2024 End: 08-18-2024 [facility] Work Phone: Start: 08-18-2024 Registered Referred [facility]esar Leonard [facility] Work Phone: Start: 08-18-2024 End: 08-18-2024 ambulatory Alexandra Hagen Facility:[facility] Start: 07-19-2024 End: 07-19-[address] Alexandra Hagen MD Work Phone: [facility] Work Phone: Start: 07-19-2024 End: 07-19-2024 [facility] Work Phone: Start: 07-19-2024 End: 07-19-2024 ambulatory Cesar MARTINEZ Facility:[facility] Start: 07-01-2024 End: 07-01-[address] Cesar Cole MD -[facility] Work Phone: Start: 07-01-2024 End: 07-01-2024 ambulatory Alexandra Hagen Facility:[facility] Start: 06-16-2024 End: 06-16-[address] Alexandra Hagen MD Work Phone: [facility] Work Phone: Start: 06-16-2024 End: 06-16-[address] Chucky Chang [facility] Work Phone: Start: 06-16-[address] [facility] Work Phone: Start: 06-16-2024 End: 06-16-2024 ambulatory Alexandra Hagen Facility:[facility] Start: 06-09-2024 End: 06-09-[address] Alexandra Hagen MD Work Phone: [facility] Work Phone: Start: 06-09-2024 End: 06-09-[address] Chucky Ochoa MD [facility] Work Phone: Start: 06-09-2024 End: 06-09-2024 ambulatory Alexandra Hagen Facility:[facility] Start: 05-19-2024 End: 05-19-[address] Alexandra Hagen MD Work Phone: [facility] Work Phone: Start: 05-19-2024 End: 05-19-2024 [facility] [facility] Work [facility]: Start: 05-19-2024 Registered Referred C[facility] Work Phone: Start: 05-19-2024 End: 05-19-2024 ambulatory Cesar MARTINEZ Facility:[facility] Start: 05-12-2024 ambulatory Alexandra Hagen Facility: [facility] Start: 05-12-2024 [facility] Work Phone: Start: 05-10-2024 End: 05-10-[address] Anant Juarez MD -[facility] Work Phone: Start: 05-10-2024 End: 05-10-2024 ambulatory Anant Juarez Facility:[facility] Start: 05-05-2024 End: 05-05-[address] Alexandra Hagen MD Work Phone: [facility] Work Phone: Start: 05-05-2024 End: 05-05-2024 Departed Referred [facility] Work Phone: Start: 05-05-2024 Registered Referred [facility] Work Phone: Start: 05-05-2024 End: 05-05-2024 ambulatory Cesar MARTINEZ Facility:[facility] Start: 04-28-2024 End: 04-28-[address] Alexandra Hagen MD Work Phone: [facility] Work Phone: Start: 04-28-2024 End: 04-28-[address] [facility] Work Phone: Start: 04-28-2024 End: 04-28-2024 ambulatory Alexandra S Jolliff Facility:[facility] Start: 04-14-2024 ambulatory Alexandra S Xiao Facility: [facility] Start: 04-14-[address] [facility] Work Phone: Start: 04-09-2024 End: 04-09-[address] [facility] Work Phone: Start: 04-09-2024 End: 04-09-2024 ambulatory Alexandra Hagen Facility:[facility] Start: 04-06-2024 End: 04-06-[address] [facility] Work Phone: Start: 04-05-2024 End: 04-06-2024 ambulatory Alexandra S Joleeanna Facility:[facility] Start: 04-05-[address] [facility] Work Phone: Start: 03-29-2024 ambulatory Chucky MARTINEZ Facil ity:[facility] Start: 03-29-[address] [facility] Work Phone: Start: 03-26-2024 ambulatory Chucky Martinezins [facility] Facil ity:[facility] Start: 03-26-[address] [facility] Work Phone: Start: 03-25-2024 ambulatory Chucky Ochoa [facility] Facil ity:[facility] Start: 03-25-[address] [facility] Work Phone: Start: 03-19-2024 ambulatory Chucky Martinezins [facility] Facil ity:[facility] Start: 03-19-[address] [facility] Work Phone: Start: 03-17-2024 ambulatory Chucky Martinezins [facility] Facil ity:[facility] Start: 03-17-[address] [facility] Work Phone: Start: 03-10-2024 ambulatory Alexandra S Jolliff Facility: [facility] Start: 03-10-[address] [facility] Work Phone: Start: 03-08-2024 ambulatory Alexandra S Jolliff Facility: [facility] Start: 03-08-[address] [facility] Work Phone: Start: 03-04-2024 ambulatory Alexandra S Jolliff Facility: [facility] Start: 03-04-[address] [facility] Work Phone: Start: 02-05-2024 End: 02-05-[address] [facility] Work Phone: Start: 02-05-2024 End: 02-05-2024 ambulatory Alexandra S Jolliff Facility:[facility] Start: 01-08-2024 End: 01-08-2024 ambulatory Alexandra S Jolliff Facility:[facility] Start: 12-26-2023 End: 12-26-2023 ambulatory Alexandra S Jolliff Facility:[facility] Start: 12-19-2023 End: 12-19-2023 ambulatory Alexandra S Jolliff Facility:[facility] Start: 12-18-2023 End: 12-18-2023 ambulatory Chucky Ochoa [facility] Facility:[facility] Start: 11-20-2023 ambulatory Chucky Ochoa [facility] Facil ity:[facility] Start: 11-05-2023 End: 11-05-2023 ambulatory Chucky Ochoa [facility] Facility:[facility] Start: 11-04-2023 End: 11-04-2023 ambulatory Chucky Ochoa O[facility] Facility:[facility] Start: 10-28-2023 End: 10-28-2023 ambulatory Alexandra S Jolliff Facility:[facility] Start: 10-24-2023 End: 10-24-2023 ambulatory Alexandra S Jolliff Facility:[facility] Start: 10-21-2023 End: 10-21-2023 ambulatory Alexandra S Jolliff Facility:[facility] Start: 10-15-2023 End: 10-15-2023 ambulatory Alexandra S Jolliff Facility:[facility] Start: 10-10-2023 End: 10-10-2023 ambulatory Alexandra S Jolliff Facility:[facility] Start: 09-22-2023 End: 09-22-2023 ambulatory Anant Baddour Facility:[facility] Start: 09-22-2023 End: 09-22-2023 ambulatory Anant Baddour Facility:[facility] Start: 06-30-2023 End: 06-30-[address] [facility] [facility] Work Phone: Start: 06-30-2023 End: 06-30-[address] Rosemary Doran Work Phone: [facility] Work Phone: Start: 06-16-2023 End: 06-20-2023 Evaluation and management of inpatient [facility] Start: 06-16-2023 End: 06-20-2023 Evaluation and management of inpatient Sae Conde MD Work Phone: [address] Comment on above: Closed displaced fra cture of medial condyle of right humerus, initial encounter (Primary Dx) Start: 06-16-2023 Non-patient / Non-visit Dr. Slim Doran Work Phone: [facility] Start: 06-16-2023 End: 06-16-2023 Emergency department patient visit Dr. Rosemary Doran Work Phone: [facility]-Emergency Department Work Phone: Start: 05-30-2023 End: 05-30-[address] Rosemary Doran Work Phone: [facility] Work Phone: Start: 05-30-2023 End: 05-30-[address] Rosemary Doran Work Phone: [facility] Work Phone: Start: 05-19-2023 End: 05-19-[address] Rosemary Doran Work Phone: [facility] Neurology Work Phone: Start: 05-15-2023 End: 05-15-[address] Rosemary Doran Work Phone: [facility] Work Phone: Start: 05-12-2023 End: 05-12-[address] Rosemary Doran Work Phone: [facility] Work Phone: Start: 05-12-[address] Rosemary Doran Work Phone: [facility] Work Phone: Start: 05-01-2023 End: 05-01-[address] Rosemary Doran Work Phone: [facility] Work Phone: Start: 05-01-2023 End: 05-01-[address] Rosemary Doran Work Phone: [facility] Work Phone: Start: 04-17-2023 End: 04-17-[address] Rosemary Doran Work Phone: [facility] Work Phone: Start: 04-17-2023 End: 04-17-[address] Rosemary Doran Work Phone: [facility] Work Phone: Start: 04-17-[address] Rosemary Doran Work Phone: [facility] Work Phone: Start: 03-20-2023 End: 03-20-[address] Rosemary Doran Work Phone: [facility] Work Phone: Start: 02-21-2023 End: 02-21-[address] Rosemary Doran Work Phone: [facility] Work Phone: Start: 02-21-2023 End: 02-21-[address] Rosemary Doran Work Phone: [facility] Work Phone: Start: 01-20-2023 End: 01-20-[address] Rosemary Doran Work Phone: [facility] Work Phone: Start: 01-20-2023 End: 01-20-[address] Rosemary Doran Work Phone: [facility] Work Phone: Start: 01-20-2023 End: 01-20-[address] Rosemary Doran Work Phone: [facility] Neurology Work Phone: Start: 01-16-2023 End: 01-16-[address] Rosemary Doran Work Phone: [facility] Work Phone: Start: 01-16-2023 End: 01-16-[address] Rosemary Doran Work Phone: [facility] Work Phone: Start: 12-28-2022 Non-patient / Non-visit Dr. Slim Doran Work Phone: [facility] Work Phone: Start: 12-27-2022 Non-patient / Non-visit Dr. Slim Doran Work Phone: [facility] Work Phone: Start: 12-27-2022 End: 12-28-2022 Evaluation and management of inpatient Dr. Rosemary Doran Work Phone: [facility]-Progressive Care Unit Work Phone: Start: 12-27-2022 End: 12-28-[address] Rosemary Doran Work Phone: [facility] Work Phone: Start: 12-19-2022 End: 12-19-[address] Rosemary Doran Work Phone: [facility] Work Phone: Start: 12-19-2022 End: 12-19-[address] Rosemary Doran Work Phone: [facility] Work Phone: Start: 12-19-[address] Rosemary Doran Work Phone: [facility] Work Phone: Start: 12-09-2022 End: 12-09-[address] Rosemary Doran Work Phone: [facility] Work Phone: Start: 12-09-2022 End: 12-09-[address] Rosemary Doran Work Phone: [facility] Work Phone: Start: 12-09-[address] Rosemary Doran Work Phone: [facility] Work Phone: Start: 12-05-2022 End: 12-05-[address] Rosemary Doran Work Phone: [facility] Vascular Surgery Work Phone: Start: 11-20-2022 End: 11-20-[address] Rosemary Doran Work Phone: [facility] Work Phone: Start: 11-20-2022 End: 11-20-[address] Rosemary Doran Work Phone: [facility] Work Phone: Start: 08-23-[address] Rosemary Doran Work Phone: [facility] Work Phone: Start: 11-18-2022 End: 11-18-2022 Emergency department patient visit Dr. Rosemary Doran Work Phone: [facility]-Emergency Department Work Phone: Start: 11-15-2022 Non-patient / Non-visit Dr. Slim Doran Work Phone: [facility] Work Phone: Start: 11-14-2022 Non-patient / Non-visit Dr. Slim Doran Work Phone: [facility] Start: 11-14-2022 Non-patient / Non-visit Dr. Slim Doran Work Phone: [facility] Work Phone: Start: 11-14-2022 End: 11-15-2022 Evaluation and management of inpatient Dr. Rosemary Doran Work Phone: [facility]-Progressive Care Unit Work Phone: Start: 11-14-[address] Marcelo Doran Work Phone: [facility] Work Phone: Start: 10-23-2022 End: 10-23-[address] Rosemary Doran Work Phone: [facility] Work Phone: Start: 10-23-2022 End: 10-23-[address] Rosemary Doran Work Phone: [facility] Work Phone: Start: 10-22-2022 End: 10-22-[address] Rosemary Doran Work Phone: [facility] Work Phone: Start: 10-22-2022 End: 10-22-[address] Rosemary Doran Work Phone: [facility]-Physical Therapy Work Phone: Start: 10-22-[address] Sada Doran Work Phone: [facility]-Physical Therapy Work Phone: Start: 10-15-2022 End: 10-15-[address] Rosemary Doran Work Phone: [facility] Work Phone: Start: 09-26-2022 Non-patient / Non-visit Dr. Slim Doran Work Phone: [facility] Start: 09-26-2022 End: 09-26-[address] Rosemary Doran Work Phone: [facility] Work Phone: Start: 09-26-2022 End: 09-26-[address] Rosemary Doran Work Phone: [facility]-Cardiovascula r Services Work Phone: Start: 09-18-2022 End: 09-18-[address] Rosemary Doran Work Phone: [facility] Work Phone: Start: 09-18-2022 End: 09-18-[address] Rosemary Doran Work Phone: [facility] Start: 09-13-2022 End: 09-13-[address] Rosemary Doran Work Phone: [facility]-Laboratory Start: 09-08-2022 End: 09-08-2022 Emergency department patient visit Dr. Rosemary Doran Work Phone: [facility]-Emergency Department Start: 09-06-2022 End: 09-06-[address] Rosemary Doran Work Phone: [facility] Start: 09-05-2022 End: 09-05-[address] Rosemary Doran Work Phone: [facility] Start: 08-08-2022 End: 08-08-[address] Rosemary Doran Work Phone: [facility] Start: 06-26-2022 End: 06-26-[address] Rosemary Doran Work Phone: [facility] Work Phone: Start: 06-26-2022 End: 06-26-[address] Rosemary Doran Work Phone: [facility] Start: 06-04-2022 End: 06-04-[address] Rosemary Doran Work Phone: [facility] Work Phone: Start: 06-04-2022 End: 06-04-[address] Rosemary Doran Work Phone: [facility] Start: 04-16-2022 End: 04-16-[address] Rosemary Doran Work Phone: [facility] Start: 02-11-2022 End: 02-11-2022 Emergency department patient visit Dr. Rosemary Doran Work Phone: [facility]-Emergency Department Start: 10-18-2021 End: 10-18-[address] Rosemary Doran Work Phone: [facility] Start: 10-12-2019 End: 10-12-2019 Refill Jo Perez Work Phone: [facility] Comment on above: Refill Request; Refi ll Request Start: 02-11-2018 Patient encounter ROSA ELENA AYALALALITHA Cai lity:[facility] Start: 01-05-2018 End: 01-05-2018 Patient encounter JO PEREZ Facility:[facility] Start: 07-21-2017 End: 07-21-2017 Patient encounter RICKEY CHAVARRIA Facility:[facility] Start: 07-15-2017 Patient encounter PURDYRUBINA CHRIS Facility:[facility] Start: 07-07-2017 End: 07-07-2017 Patient encounter JO PEREZ Facility:[facility] Start: 06-27-2017 End: 06-27-2017 Patient encounter ALLRUBINA CHRIS Facility:[facility] Start: 06-11-2017 Patient encounter ALLRUBINA CHRIS Facility:[facility] Start: 02-01-2015 End: 02-01-2015 Patient encounter procedure Shi Lester Work Phone: [facility] Start: 02-01-2015 Results Only Shi ford Work Phone: [facility] Start: 04-17-2010 End: 04-17-2010 Patient encounter procedure Cruz Sanchez Work Phone: [facility] Start: 04-17-2010 Results Only Cruz goss Work Phone: [facility] Start: 07-31-2009 End: 07-31-2009 Patient encounter procedure Clotilde Doss Work Phone: [facility] Start: 07-31-2009 Results Only Clotilde murray Work Phone: [facility] Start: 05-07-2001 End: 05-07-2001 Patient encounter procedure Sae Resendiz Work Phone: [facility] Start: 05-07-2001 Results Only Sae rosario Work Phone: [facility] Procedures Date Procedure Procedure Detail Performing [...] quantitative blood xcpt reagent strip Connie Perez [facility] Work Phone: Start: 06-20-2023 Prothrombin time Sonal hahn Perez [facility] Work Phone: Start: 06-19-2023 Glucose quantitative blood xcpt reagent strip Connie Perez [facility] Work Phone: Start: 06-19-2023 Glucose quantitative blood xcpt reagent strip Connie Perez [facility] Work Phone: Start: 06-19-2023 Glucose quantitative blood xcpt reagent strip Connie Perez [facility] Work Phone: Start: 06-19-2023 Prothrombin time Merlenedi jovani Perez [facility] Work Phone: Start: 06-19-2023 Glucose quantitative blood xcpt reagent strip Connie Chris [facility] Work Phone: Start: 06-19-2023 Basic metabolic pane l calcium total oCnnie Perez [facility] Work Phone: Start: 06-18-2023 Glucose quantitative [...] metabolic pane l calcium total Connie Perez [facility] Work Phone: Start: 06-17-2023 Glucose quantitative [...] on above: Performed By: #### L [id number] ####Language Assistant: ALEXANDRA BUSTAMANTE ([id number])[facility] ([facility])[address] [place] [address] Start: 06-16-2023 End: 06-16-2023 Radex shoulder complete minimum 2 views Madeleine Hanks MD Work Phone: Start: 06-16-2023 ABO and Rh group [Ty pe] in Blood by Confirmatory method Ewa ZUNIGA Work Phone: Start: 06-16-2023 Basic metabolic pane l calcium total Ewasander ZUNIGA Work Phone: Start: 06-16-2023 Blood typing serolog ic abo Ewa ZUNIGA Work Phone: Start: 06-16-2023 Plain chest X-ray Dr. Hope Doran Work Phone: Start: 06-16-2023 Plain x-ray of elbow Dr Vance Doran Work Phone: Start: 06-16-2023 CT of head without contrast Dr. Rosemary Doran Work Phone: Start: 12-27-2022 MRI of brain with contrast Dr. Rosemary Doarn Work Phone: Start: 12-27-2022 Plain chest X-ray [...] Phone: Start: 07-31-2009 CONVERTED SURGICAL PATHOLOGY Clotilde Chase Doss Work Phone: Start: 02-14-2007 History of placement of stent for coronary artery disease History of coronary artery stent placement Dr. Cesar Cole MD Comment on above: PCI-JOE-Mid LCx w/ 2 .5 x 20 mm Taxus Stent 02/14/2007 Start: 05-07-2001 CONVERTED SURGICAL PATHOLOGY Sae Hope Astrid Work Phone: Plan of Treatment Date Care Activity Detail Author Start: 09-13-2024 Lamotrigine measurement [facility] Start: 09-13-2024 Measurement of substance [facility] Start: 09-11-2024 Patient discharge [facility] Start: 09-11-2024 Complete blood count [facility] Start: 09-10-2024 Following clinical p athway protocol [facility] Start: 09-10-2024 Transfusion of blood product [facility] Start: 09-10-2024 Aspiration precautions [facility] Start: 09-10-2024 Assessment of risk o f venous thromboembolism [facility] Start: 09-10-2024 Cardiac monitoring [facility] Start: 09-10-2024 Catheterization of vein [facility] Start: 09-10-2024 Consultation [facility] Start: 09-10-2024 Continuous pulse oximetry [facility] Start: 09-10-2024 Electroencephalogram [facility] Start: 09-10-2024 Elevation of head of bed [facility] Start: 09-10-2024 Exercises [facility] Start: 09-10-2024 Insertion of cathete r into peripheral vein [facility] Start: 09-10-2024 Notification of physician [facility] Start: 09-10-2024 Oxygen therapy [facility] Start: 09-10-2024 Patient referral to dietitian [facility] Start: 09-10-2024 Providing care accor ding to standard [facility] Start: 09-10-2024 Referral to occupati onal therapist [facility] Start: 09-10-2024 Referral to service [facility] Start: 09-10-2024 Speech therapy assessment [facility] Start: 09-10-2024 Telemedicine consult ation with patient [facility] Start: 09-10-2024 Tobacco use cessatio n education [facility] Start: 09-10-2024 Vital signs measurements [facility] Start: 09-10-2024 End: 09-10-2024 [facility] Start: 09-10-2024 Verification routine [facility] Start: 09-10-2024 MRI of brain without contrast Brain without Contrast [facility] Start: 09-10-2024 Admission procedure [facility] Start: 09-10-2024 [facility] Start: 09-10-2024 Bacteria identified in Urine by Culture Urine Culture [facility] Start: 09-10-2024 Urine culture [facility] Start: 09-10-2024 Oxygen therapy [facility] Start: 09-10-2024 [facility] Start: 06-11-2025 Lamotrigine measurement [facility] Start: 01-06-2024 Urine microalbumin profile DTA P,TDAP,TD (1 - Tdap) [facility] Comment on above: Postponed from 06/23 (Declined at this time) Start: 07-28-2023 ADVANCE DIRECTIVE DISCUSSION A DVANCE DIRECTIVE DISCUSSION [facility] Start: 06-16-2023 Application long arm splint shoulder hand APPLY LONG ARM SPLINT [facility] Start: 06-16-2023 [facility] Start: 03-31-2023 Medicare Advantage A nnual Wellness Visit Medicare Advantage Annual Wellness Visit [facility] Start: 01-20-2023 Serum immunofixation [facility] Start: 01-20-2023 Urine immunofixation [facility] Start: 12-28-2022 Patient discharge [facility] Start: 12-28-2022 [facility] Start: 12-27-2022 Following clinical p athway protocol [facility] Start: 12-27-2022 Assessment of risk o f venous thromboembolism [facility] Start: 12-27-2022 Catheterization of vein [facility] Start: 12-27-2022 Incentive spirometry [facility] Start: 12-27-2022 Inhalation therapy procedure [facility] Start: 12-27-2022 Insertion of cathete r into peripheral vein [facility] Start: 12-27-2022 Measuring intake and output [facility] Start: 12-27-2022 Neurological assessment [facility] Start: 12-27-2022 Providing care accor ding to standard [facility] Start: 12-27-2022 Provision of activit y privileges [facility] Start: 12-27-2022 Referral to occupati onal therapist [facility] Start: 12-27-2022 Referral to service [facility] Start: 12-27-2022 Speech therapy assessment [facility] Start: 12-27-2022 [facility] Start: 12-27-2022 Admission procedure [facility] Start: 11-15-2022 Patient discharge [facility] Start: 11-15-2022 Blood chemistry [facility] Start: 11-14-2022 Following clinical p athway protocol [facility] Start: 11-14-2022 Assessment of risk o f venous thromboembolism [facility] Start: 11-14-2022 Cardiac monitoring [facility] Start: 11-14-2022 Catheterization of vein [facility] Start: 11-14-2022 Continuous pulse oximetry [facility] Start: 11-14-2022 Elevation of head of bed [facility] Start: 11-14-2022 Exercises [facility] Start: 11-14-[address] anned interventions [facility] Start: 11-14-2022 Insertion of cathete r into peripheral vein [facility] Start: 11-14-2022 Measuring intake and output [facility] Start: 11-14-2022 MRI of brain without contrast Brain without Contrast [facility] Start: 11-14-2022 Notification of physician [facility] Start: 11-14-2022 Oxygen therapy [facility] Start: 11-14-2022 Patient referral to dietitian [facility] Start: 11-14-2022 Providing care accor ding to standard [facility] Start: 11-14-2022 Referral to occupati onal therapist [facility] Start: 11-14-2022 Referral to service [facility] Start: 11-14-2022 Speech therapy assessment [facility] Start: 11-14-2022 Tobacco use cessatio n education [facility] Start: 11-14-2022 [facility] Start: 11-14-2022 Verification routine [facility] Start: 11-14-2022 Admission procedure [facility] Start: 11-14-2022 Patient referral to dietitian [facility] Start: 09-18-2022 Patient referral [facility] Work Phone: Start: 09-18-2022 [place] and lambda light chains [facility] Start: 09-18-2022 Thiamine measurement [facility] Start: 09-17-2022 [facility] Start: 03-26-2020 Hepatitis B screening URINE ALBUMIN:CREATININE RATIO [facility] Start: 03-26-2020 Hepatitis B surface antibody level LDL CHOLESTEROL [facility] Start: 11-30-2019 Influenza vaccination INFLUENZA (#1) [facility] Start: 10-01-2019 [object Object] DIABETIC FOOT EXAM [facility] Start: 09-25-2019 HbA1c (Bld) [Mass fraction] HBA1C [facility] Start: 07-07-2018 Hepatitis C antibody , confirmatory test DILATED RETINAL EXAM [facility] Start: 07-20-2013 DTaP/Tdap/Td Vaccine s (1 - Tdap) DTaP/Tdap/Td Vaccines (1 - Tdap) [facility] Start: 12-05-2010 SHINGRIX VACCINE (2 of 3) CONTRERAS GRIX VACCINE (2 of 3) [facility] Start: 12-05-2010 Zoster Vaccines (2 of 3) Zoste r Vaccines (2 of 3) [facility] Start: 1995 RSV Immunization age d 60 or older (1 - 1-dose 60+ series) RSV Immunization aged 60 or older (1 - 1-dose 60+ series) [facility] Start: 1947 Depression Screening Depression Scre ening [facility] Start: 1935 Screening for osteoporosis Bone Dens ity Scan [facility] Albumin [Moles/volum e] in Serum or Plasma [facility] Albumin/Globulin ratio [facility] Anion gap in Serum or Plasma [facility] Anion gap measurement [facility] Ankle brachial pressure index [facility] Blood ammonia measurement [facility] Blood ammonia measurement [facility] BUN/Creatinine ratio [facility] BUN/Creatinine ratio [facility] Calcium [Mass/volume ] in Serum or Plasma [facility] Calcium [Mass/volume ] in Serum or Plasma [facility] [facility] Carbon dioxide, tota l [Moles/volume] in Central venous blood [facility] Carbon dioxide, tota l [Moles/volume] in Serum or Plasma [facility] Chloride [Moles/volu me] in Serum or Plasma [facility] Cholesterol [Mass/vo lume] in Serum or Plasma [facility] Cholesterol [Mass/vo lume] in Serum or Plasma [facility] Cholesterol in HDL [Mass/volume] in Serum or Plasma [facility] Cholesterol in HDL [Mass/volume] in Serum or Plasma [facility] Cholesterol in LDL [Mass/volume] in Serum or Plasma [facility] Creatinine [Mass/vol ume] in Serum or Plasma [facility] Creatinine [Moles/vo lume] in Serum or Plasma [facility] Electrophoresis: [id number] [facility] Electrophoresis: andrew ma globulin [facility] Erythrocyte mean cor puscular volume determination [facility] Globulin measurement [facility] Glucose [Mass/volume ] in Serum or Plasma [facility] Glucose [Mass/volume ] in Serum or Plasma [facility] Hematocrit [Volume F raction] of Blood [facility] Hematocrit [Volume F raction] of Blood [facility] Hemoglobin [Mass/vol ume] in Blood [facility] Hemoglobin [Mass/vol ume] in Blood [facility] IgA [Mass/volume] in Serum or Plasma [facility] IgG [Mass/volume] in Serum or Plasma [facility] IgM [Mass/volume] in Serum or Plasma [facility] [place]/lambda light c nat ratio [facility] Lambda light chains. free [Mass/volume] in Serum or Plasma [facility] Lamotrigine measurement [facility] Leukocytes [#/volume ] in Blood [facility] Leukocytes [#/volume ] in Blood [facility] Low density lipoprot ein cholesterol measurement [facility] Mean corpuscular hem oglobin concentration determination [facility] Mean corpuscular hem oglobin concentration determination [facility] Mean corpuscular hem oglobin determination [facility] Mean corpuscular hem oglobin determination [facility] Measurement of renal function [facility] Measurement of renal function [facility] MR Cervical spine [facility] MR Lumbar spine [facility] Neutrophil count [facility] Neutrophil percent differential count [facility] Patient Education [facility] Work Phone: Patient referral [facility] Work Phone: Platelets [#/volume] in Blood [facility] Platelets [#/volume] in Blood [facility] Potassium [Moles/vol ume] in Serum or Plasma [facility] Potassium measurement [facility] Protein electrophore sis panel - Serum or Plasma [facility] Red blood cell count [facility] Red blood cell count [facility] Red cell distributio n width determination [facility] Red cell distributio n width determination [facility] Serum chloride measurement [facility] Serum protein electrophoresis [facility] Sodium [Moles/volume ] in Serum or Plasma [facility] Sodium measurement [facility] Total cholesterol:HD L ratio measurement [facility] Triglycerides measurement [facility] Triglycerides measurement [facility] Troponin T.cardiac [Mass/volume] in Serum or Plasma by High sensitivity method [facility] Troponin T.cardiac [Mass/volume] in Serum or Plasma by High sensitivity method [facility] Urea nitrogen [Mass/ volume] in Serum or Plasma [facility] Urea nitrogen [Mass/ volume] in Serum or Plasma [facility] Urine culture Urine Culture [facility] Urine kappa light ch ain measurement [facility] US Carotid arteries [facility] VLDL cholesterol measurement [facility] VLDL cholesterol measurement [facility] Immunizations Immunization Date Immunization Notes Care Provider Fa cility 06-02-2020 Covid (Moderna) Dr. Rosemary mixon Work Phone: [facility] 05-05-2020 Covid (Moderna) Dr. Rosemary mixon Work Phone: [facility] 04-27-2019 influenza, high dose seasonal, preservative-free Jo Perez [facility] 01-05-2018 influenza, high dose seasonal, preservative-free Jo Perez [facility] 12-12-2014 influenza, seasonal, injectable Jo Perez [facility] 06-15-2014 pneumococcal conjuga te vaccine, 13 valent Jo Perez [facility] 12-06-2013 influenza, seasonal, injectable Jo Lamasdonna [facility] 07-19-2013 tetanus and diphther ia toxoids, adsorbed, preservative free, for adult use (2 Lf of tetanus toxoid and 2 Lf of diphtheria toxoid) Jo Perez [facility] 01-25-2013 influenza, seasonal, injectable Jo Perez [facility] 01-13-2012 influenza, seasonal, injectable Jo Perez [facility] 02-11-2011 influenza, seasonal, injectable Jo Perez [facility] 10-10-2010 zoster vaccine, live Alexia Lishnevs [facility] 03-31-2006 pneumococcal polysaccharide vaccine, 23 valent Jo Perez [facility] Payers Date Payer Category Payer Self-pay [id number] 2023 Medicare [employer] MEDICARE UHC AARP MEDICARE ADVANTAGE [id number] 2023-[facility] [phone] [address] [address] [place] [address] Medicare HMO [id number] [id number] 2023 Unknown [id number] 2005 Unknown [id number] 1.2.840.942820.1.13.159.2.7.3 .626644.315 1935 Unknown [id number] 2.16.840.1.179765.3.579.2.278 1935 Unknown [id number] 2.16.840.1.745998.3.579.2.278 1935 Unknown [id number] 2.16.840.1.511766.3.579.2.278 1935 Unknown [id number] 2.16.840.1.020106.3.579.2.278 1935 Unknown [id number] 2.16.840.1.399558.3.579.2.278 1935 Unknown [id number] 2.16.840.1.351766.3.579.2.278 1935 Unknown [id number] 2.16.840.1.821076.3.579.2.278 Medicare MEDICARE PART A B [id number] Unknown [id number] Unknown [id number] 2.16.840.1.524560.3.579.2.462 Unknown [id number] 2.16.840.1.664102.3.579.2.462 Unknown [id number] 2.16.840.1.034892.3.579.2.462 Unknown [id number] 2.16.840.1.781919.3.579.2.462 Unknown [id number] 2.16.840.1.539055.3.579.2.462 Unknown [id number] 2.16.840.1.188432.3.579.2.462 Unknown [id number] 2.16.840.1.678316.3.579.2.462 Unknown [id number] 2..840.1.062554.3.579.2.462 Unknown [id number] 2.840.1.686926.3.579.2.462 Unknown [id number] 2.16840.1.111796.3.579.2.462 Unknown [id number] 2..840.1.734408.3.579.2.462 Unknown [id number] 2.16.840.1.196033.3.579.2.462 Unknown [id number] 2.16.840.1.734737.3.579.2.462 Unknown [id number] 2.840.1.158238.3.579.2.462 Unknown [id number] 2.16.840.1.729131.3.579.2.462 Unknown [id number] 2.16.840.1.769200.3.579.2.462 Unknown [id number] 2.16.840.1.385650.3.579.2.462 Unknown [id number] 2.16.840.1.990586.3.579.2.462 Unknown [id number] 2.16840.1.662820.3.579.2.462 Unknown [id number] 2.16.840.1.780499.3.579.2.462 Unknown [id number] 2.16840.1.278463.3.579.2.462 Unknown [id number] 2.16.840.1.145057.3.579.2.462 Unknown [id number] 2.16840.1.932487.3.579.2.462 Unknown [id number] 2.16840.1.563027.3.579.2.462 Unknown [id number] 2.840.1.829866.3.579.2.462 Unknown [id number] 2.840.1.958994.3.579.2.462 Unknown [id number] 2.840.1.240848.3.579.2.462 Unknown [id number] 2.840.1.192514.3.579.2.462 Unknown [id number] 2.840.1.579043.3.579.2.462 Unknown [id number] 2.840.1.232403.3.579.2.462 Unknown [id number] 2.840.1.138989.3.579.2.462 Unknown [id number] 2.840.1.271695.3.579.2.462 Unknown [id number] 2.840.1.093672.3.579.2.462 Unknown [id number] 2.840.1.538482.3.579.2.462 Unknown [id number] 2.840.1.770539.3.579.2.462 Unknown [id number] 2.840.1.693192.3.579.2.462 Unknown [id number] 2.840.1.450766.3.579.2.462 Unknown [id number] 2.840.1.339057.3.579.2.462 Unknown [id number] 2.16.840.1.210297.3.579.2.462 Unknown [id number] 2.16840.1.366340.3.579.2.462 Unknown [id number] 2.16840.1.104148.3.579.2.462 Unknown [id number] 2.16840.1.976135.3.579.2.462 Unknown [id number] 2.16840.1.092141.3.579.2.462 Unknown [id number] 2.0.1.910356.3.579.2.462 Social History Date Type Detail Facility Start: 05-13-2019 End: 09-11-2024 Tobacco smoking status NHIS Former smoker [facility] End: 03-20-2008 History of tobacco use Current smoker [facility] End: 03-20-2008 History of tobacco use Cigarette Smoker [facility] Start: 05-13-2019 End: 06-17-2023 Cigarettes smoked current (pack per day) - Reported [facility] Start: 05-13-2019 End: 06-18-2023 Tobacco use and exposure Never used [facility] Start: 05-13-2019 Alcohol intake Current non-dr nut sorter of alcohol (finding) [facility] Start: 1935 Sex Assigned At Not on file [facility] Exposure to SARS-CoV -2 (event) Not sure [facility] Start: 02-11-2022 End: 06-16-2023 Tobacco smoking status NHIS Unknown if ever smoked [facility] Start: 04-19-2020 Rare [facility] Start: 04-19-2020 None [facility] Start: 04-19-2020 Spouse/ Signif icant Other [facility] Start: 08-11-2020 Non-smoker [facility] Start: 1935 Sex Assigned At Female [facility] Start: 06-18-2023 Tobacco smoking stat us NHIS Never smoked tobacco [facility] Start: 06-17-2023 End: 06-18-2023 AHC Utilities [facility] Has the [email or web address], [employer], [employer], or water [email or web address] threatened to shut off services in your home in past 12Mo No [facility] How often to you hav e a drink containing alcohol? Never [facility] How many standard drinks containing alcohol do you have on a typical day? Patient does not drink [facility] (I/We) worried wheth er (my/our) food would run out before (I/we) got money to buy more. Never true [facility] Start: 06-04-2024 End: 07-20-2024 Sex Female (finding) [facility] Medical Equipment Procedure Code Equipment [...] instructed [employer] Cancellous 30cc 1-8 - [id number] - [id number]_imp Start: 06-18-2023 Plate Hum Dist 2.7/3.5 83953_imp Start: 06-18-2023 Plate Va Olcrn 2.7/3.5 2h R - [id number]_imp Start: 06-18-2023 Plate Va M-D-Hum 2.7/3.5 1h L - [id number]_imp Start: 06-18-2023 Screw Lck Va 2.9s27c-A T8 Rcs - [id number]_imp Start: 06-18-2023 Screw Lck Va 2.7x58 S-T T8 Rcs - [id number]_imp Start: 06-18-2023 Screw Lck Va 2.7l04d-Z T8 Rcs - [id number] 83966_imp Start: 03-20-2024 Screw Lck Va 2.3z26p-H T8 Rcs - [id number] 83967_imp Start: 06-18-2023 Screw Lck Va 2.9w64o-G T8 Rcs - [id number] 83968_imp Start: 06-18-2023 Screw Lck Va 2.7x50 S-T T8 Rcs - [id number] 83969_imp Start: 06-18-2023 Screw Crtx 3.5x22mm S-T - [id number] 83971_imp Start: 06-18-2023 Screw Crtx 3.5x26mm S-T - [id number]_imp Start: 06-18-2023 Screw Lck Va 2.1j01z-Z T8 Rcs - [id number] 83975_imp Start: 06-18-2023 Screw Lck Va 2.9n97d-N T8 Rcs - [id number] 83976_imp Start: 06-18-2023 Screw Lck Va 2.7x56 S-T T8 Rcs - [id number] 83956_imp Start: 06-18-2023 Screw Crtx 3.5x28mm S-T - [id number] 83957_imp Start: 06-18-2023 Screw Crtx 3.5x30mm S-T - [id number] 83958_imp Start: 06-18-2023 Screw Lck Va 2.2h68v-Y T8 Rcs - [id number] 83959_imp Start: 06-18-2023 Screw Lck Va 2.8y18r-Z T8 Rcs - [id number] 83961_imp Start: 06-18-2023 Goals Date Patient Goal Desired Activity /State Functional Status Date Assessment Result Facility 09-11-2024 Functional status Ambulates [facility] Work Phone: 12-28-2022 Functional status Ambulates [facility] Work Phone: 11-15-2022 Functional status Chair [facility] Work Phone: Mental Status Date Assessment Result Facility 09-11-2024 Cognitive function Voice/Name [facility] Work Phone: 09-10-2024 Cognitive function Voice/Name [facility] Work Phone: 09-08-2024 Cognitive function Voice/Name [facility] Work Phone: 12-28-2022 Cognitive function Voice/Name [facility] Work Phone: 11-18-2022 Cognitive function Level Of Cons ciousness Awake;Alert;Appropriate [facility] Work Phone: 11-15-2022 Cognitive function Appropriate;Cooperativ e [facility] Work Phone: 11-14-2022 Cognitive function Voice/Name [facility] Work Phone: 11-14-2022 Cognitive function Voice/Name [facility] Work Phone: 09-08-2022 Cognitive function Awake;Alert;A ppropriate;Follow s Commands [facility] Work Phone: 02-11-2022 Cognitive function Awake;Alert;Appropriat e [facility] Work Phone: Clinical Notes 02-14-2007 to 09-11-2024 Note Date & Type Note Facility 09-11-2024 Discharge summary [facility] 09-11-2024 Procedure note [facility] 09-11-2024 Discharge summary [facility] 09-11-2024 Discharge summary Note Date/Time September 11, 2024 2:40pm [facility] Medical Records Department [address] [place] [address] Instructions for Home/Discharge Instructions 09/11/24 1214 MR#: [id number] Acct: [id number] Name: EZRA GONZALEZ Rep #:[id number] : 1935 89 From: Matthew carbajal DO [...] Provider: Chucky Ochoa Consulting Providers: Olivia Trinidad; Jaentt French; Julia Carpenter; Keyshawn Sawn; Dmitriy Diop; Maegan Edmondson; MAMADOU HICKS; Cara Batista; Lorelei Pruett; [...] Trinidad MD; Dr. Lenin Tamez MD; Dr. lM Morris MD; Dr. Nirmal Hummel MD; Dr. Chauncey Vaughn MD; Dr. Dmitriy Diop MD; Dr. Rubén Michel DO; Dr. Liz Valdes MD; Dr. Iggy Graves MD; Dr. Castillo Jones MD; Dr. Chucky Ochoa DO; Dr. Daniel Leroy MD; Dr. Cindy Horn MD; Meagan Edmondson MD; Keyshawn Swan MD; Cara Batista DO; Robisnon Mayorga MD; Aura Thurman DO; Ashu Leonard MD ~ Signed [facility] Work Phone: 1(240) 397-195006-14-2025 Discharge summary Author Matthew Oro [facility] Note Date/Time September 11, 2024 3:14 pm [facility] Medical Records Department [address] [place] [address] Discharge Summary 09/11/24 1214 MR#: [id number] Acct: [id number] Name: EZRA GONZALEZ Rep #:[id number] : 1935 89 From: Matthew carbajal DO PCP: Dr. Chucky Ochoa DO Status:ADM MARIELOS Location: [place] [address] Providers Date of Admission: 09/10/24 Date of [...] is an 89-year-old female who presented to [facility] ED on 09/10/2024 with dysarthria. 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 Reading Location: [id number] Brain MRI 09/10/24 16:07 IMPRESSION: Atrophy and mild microvascular changes Reading Location: [facility] D/C Instructions DC O2, CPAP, BIPAP [...] Self Care Charges/Coding Visit Charges Inpatient E&M: 28621 Disch Hosp >30min 09/11/24 1444 <Electronically signed [...] cc: Dr. Matthew Oro DO; Dr. Chucky Ochoa, DO ~* Signed [facility] Work Phone: 1(835) 815-696906-14-2025 Progress note Author Lenin Tamez [facility] Note Date/Time September 11, 2024 10:4 1am [facility] Medical Records Department [address] [place] [address] Progress Note - Neurology 09/11/24 1035 MR#: [id number] Acct: [id number] Name: EZRA GONZALEZ Rep #:[id number] : 1935 89 From: Lenin Morel PCP: Dr. Chucky Ochoa DO Status:ADM MARIELOS Location: [place] [address] Assessment and Plan: Neuro Assessment/Plan Telestroke (Audio/Video Encounter) 89 y/o woman with h/o DM, HTN, Afib on coumadin (INR 2 days ago was 2.9 and 2.4 at [place]) and seizure on lamictal (had last GTC on Friday) p/w transient dysarthria. History is obtained from patient. On my exam, NIHSS-0 and patient reports feeling better. She follows with Dr. Juarez with neurology. CT head- no acute intracranial process. 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 MRI brain - no acute stroke. LDL-100 Diagnosis: TIA Plan: Continue coumadin and statin. Check A1c. Follow up EEG. Continue lamictal.Follow up with neurology as an outpatient. 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 MRI brain - no acute stroke. 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 NO ACUTE FINDINGS. Red Alert: Chronic changes. The critical information above was relayed directly by me by telephone to Teri Garcia on 09/10/2024 at 2:05 pm with readback verification. Reading Location: [id number] Head/Neck CTA 09/10/24 13:55 IMPRESSION: Calcific plaque [...] 3:01 pm with readback verification. Reading Location: [id number] Brain MRI 09/10/24 16:07 IMPRESSION: Atrophy and mild microvascular changes [facility] Rhythm Strip Rhythm Strip: A-fib Rate: 75 [...] and with change in RN caregiver. Freq: [id number] Protocol: Activity Type Activity Date Activity User E-sign Co-sign Detail Recorded Client Recorded Date Recorded By Document 09/11/24 09:08 YOVANY [id number] 09/11/24 09:08 YOVANY 09/11/24 09:08 NIH Stroke [...] Cosigner Signature (if applicable): CC: ~ Signed [facility] Work Phone: 1(161) 780-716306-14-2025 [facility] Medical Records Department [address] [place] [address] Discharge Summary 09/11/24 1214 MR#: [id number] Acct: [id number] Name: EZRA GONZALEZ Rep #: [id number] : 1935 89 From: Matthew Oro DO PCP: Dr. Chucky Ohcoa DO Status:ADM MARIELOS Location: [place] [address] Providers Date of Admission: 09/10/24 Date of [...] is an 89-year-old female who presented to [facility] ED on 09/10/2024 with dysarthria. Short [...] and non- distended Anastasia (more content not included)...[facility]06-14-2025 Progress note [facility] Medical Records Department [address] [place] [address] Progress Note - Neurology 09/11/24 1035 MR#: [id number] Acct: [id number] Name: EZRA GONZALEZ Rep #:[id number] : 1935 89 From: Lenin Morel PCP: Dr. Chucky Ochoa, DO Status:ADM MARIELOS Location: [place] [id number]- Assessment and Plan: Neuro Assessment/Plan Telestroke (Audio/Video Encounter) 89 y/o woman with h/o DM, HTN, Afib on coumadin (INR 2 days ago was 2.9 and 2.4 at [place]) and seizure on lamictal (had last GTC on Friday) p/w transient dysarthria. History is obtained from patient. On my exam, NIHSS-0 and patient reports feeling better. She follows with Dr. Juarez with neurology. CT head- no acute intracranial process. 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 MRI brain - no acute stroke. LDL-100 Diagnosis: TIA Plan: Continue coumadin and statin. Check A1c. Follow up EEG. Continue lamictal.Follow up with neurology as an outpatient. 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 MRI brain - no acute stroke. Today, [...] %(Auto) 72.3 H, Lymph % (Auto) 16.6 L,Millard % (Auto) 9.1, Eos % (Auto) 1.2, [...] Clarity Clear, Urine pH 5.0, Ur Specific [place] 1.010, Urine Protein 30 H, Urine Glucose [...] Catch Urine Culture - Preliminary GNR lactose firer glost kiln Radiography Diagnostic Testing: Radiology Impression Brain CT 09/10/24 13:55 IMPRESSION: CHRONIC CHANGES. NO ACUTE FINDINGS. Red Alert: Chronic changes. The critical information above was relayed directly by me by telephone to Teri Garcia on 09/10/2024 at 2:05 pm with readback verification. Reading Location: [id number] Head/Neck CTA 09/10/24 13:55 IMPRESSION: Calcific plaque [...] 3:01 pm with readback verification. Reading Location: [id number] Brain MRI 09/10/24 16:07 IMPRESSION: Atrophy and mild microvascular changes [facility] Rhythm Strip Rhythm Strip: A-fib Rate: 75 [...] and with change in RN caregiver. Freq: [id number] Protocol: Activity Type Activity Date Activity User E-sign Co-sign Detail Recorded Client Recorded Date Recorded By Document 09/11/24 09:08 YOVANY [id number] 09/11/24 09:08 YOVANY 09/11/24 09:08 NIH Stroke [...] Inattention: 0 - No abnormality Total: 0 06/14/25 1041 Cosigner Signature (if applicable): CC: ~ Signed [facility]06-13-2025 History and physical note Author Matthew Oro [facility] Note Date/Time September 10, 2024 5:27 pm [facility] Medical Records Department [address] [place] [address] H&P Exam - Hospitalist 09/10/24 1603 MR#: [id number] Acct: [id number] Name: EZRA GONZALEZ Rep #:[id number] : 1935 89 From: Matthew carbajal DO PCP: Dr. Chucky Ochoa DO Status:ADM MARIELOS Location: [place] [address] HPI - General General Date of Admission: 09/10/24 Date of Service: 09/10/24 Chief Complaint: Dysarthria HPI Narrative EZRA GONZALEZ, is a 89 F who presented to [facility] ED on 09/10/2024 with dysarthria. Patient lives at [facility] living at [place]. Has history of seizures and is on [...] any other acute concerns at this time. 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 Reading Location: [id number] Head/Neck CTA 09/10/24 13:55 IMPRESSION: Calcific plaque [...] pm with readback verification. Reading Location: MIKE Assessment & Plan Assessment/Plan (1) Difficulty with speech: PLAN: Plan Patient is an 89-year-old female who presented to [facility] ED on 09/10/2024 with dysarthria. 1. [...] 55 minutes. Charges/Coding Visit Charges Inpatient E&M: 95136 Init Hosp L2 09/10/247 <Electronically signed by Matthew Oro DO> Cosigner Signature (if applicable): CC: Dr. Matthew Oro DO; Dr. Chucky Ochoa DO~ Signed [facility] Work Phone: 1(383) 761-653706-13-2025 Discharge summary Author [facility] Note Date/Time September 10, 2024 4:17 pm [facility] Medical Records Department [address] [place] [address] Emergency Department Summary 09/10/24 MR#: [id number] Acct: [id number] Name: ZERA GONZALEZ Rep #:[id number] : 1935 89 From: Teri Echeverria PCP: [...] son Wilfredo (her eldest son) phone number [phone]. He states that she follows with Dr. 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 He also tells me that he talk to her about 615 this morningand she seemed a little off with her mentation as well as her pronunciation. 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 Reading Location: [id number] Head/Neck CTA 09/10/24 13:55 IMPRESSION: Calcific plaque [...] pm with readback verification. Reading Location: MIKE Rhythm Strip Rhythm Strip: A-fib Rate: 75 Ectopy: None EKG Initial EKG: Attestation: I personally reviewed and interpreted this EKG as follows: Interpretation: Atrial Fibrillation Comments: Atrial fibrillation at a rate of 75 bpm Left axis deviation Moderate voltage criteria for LVH Normal ST segments Management Discussion w/another healthcare provider: Hospitalist, Chemical Equipment Controller and Radiologist Discharge Plan Triage Chief Complaint: Stroke Alert ED Provider: Teri Garcia Dx/Rx/DC Orders Clinical Impression: Difficulty with speech, [facility] current use of anticoagulant, Atrial fibrillation, chronic, [...] DO [Primary Care Provider] - Print Language: Bermudian Disposition Disposition: Acute Care Hospital [facility] NIHSS NIHSS 1a. Level of Consciousness: 0 [...] No aphasia; normal 10. Dysarthria: 1 = Uaul-ic-kftfwora dysarthria; 11. Extinction and Inattention: 0 - [...] problems, contact your Primary Care Provider. Call [employer] [facility] ([phone]) or report to the closest Emergency Room. Call 911 if necessary. 09/10/24 1617 <Electronically signed by Teri Garcia DO> Cosigner Signature (if applicable): CC: Dr. Chucky Ochoa DO ~ Signed [facility] Work Phone: 1(609) 977-133106-13-2025 History and physical note [facility] Medical Records Department [address] [place] [address] H&P Exam - Hospitalist 09/10/24 1603 MR#: [id number] Acct: [id number] Name: EZRA GONZALEZ Rep #:[id number] : 1935 89 From: Matthew carbajal DO PCP: Dr. Chucky Ochoa DO Status:ADM MARIELOS Location: [place] [address] HPI - General General Date of Admission: 09/10/24 Date of Service: 09/10/24 Chief Complaint: Dysarthria HPI Narrative EZRA GONZALEZ, is a 89 F who presented to [facility] ED on 09/10/2024 with dysarthria. Patient lives at assisted living at [place]. Has history of seizures and is on [...] any other acute concerns at this time. 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) Persistent atrial fibrillation Chronic kidney disease (CKD) Spinal stenosis Osteoarthritis Atherosclerotic heart disease of [place] coronary artery without angina pectoris Type 2 diabetes mellitus Essential (primary) hypertension Hyperlipidemia Obesity Pleural effusion on right (09/2019) Paroxysmal atrial fibrillation Home Medications ?Medication ?Instructions ?Recorded ?Last Taken ?Type multivitamin 1 cap PO DAILY 12/10/19 09/12/21 History omeprazole 20 mg capsule,delayed 20 mg [...] %(Auto) 72.3 H, Lymph % (Auto) 16.6 L,Millard % (Auto) 9.1, Eos % (Auto) 1.2, [...] Clarity Clear, Urine pH 5.0, Ur Specific [place] 1.010, Urine Protein 30 H, Urine Glucose [...] 2:05 pm with readback verification. Reading Location: [id number] Head/Neck CTA 09/10/24 13:55 IMPRESSION: Calcific plaque [...] 3:01 pm with readback verification. Reading Location: [facility] Assessment & Plan Assessment/Plan (1) Difficulty with speech: PLAN: Plan Patient is an 89-year-old female who presented to [facility] ED on 09/10/2024 with dysarthria. 1. [...] 55 minutes. Charges/Coding Visit Charges Inpatient E&M: 01274 Init Hosp L2 09/10/24 1727 Cosigner Signature (if applicable): CC: Dr. Matthew Oro DO; Dr. Chucky Ochoa DO~ Signed [facility]06-13-2025 Discharge summary [facility] Medical Records Department [address] [place] [address] Emergency Department Summary 09/10/24 MR#: [id number] Acct: [id number] Name: EZRA GONZALEZ Rep #:[id number] : 1935 89 From: Teri Echeverria PCP: [...] son Wilfredo (her eldest son) phone number [phone]. He states that she follows with Dr. 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 He also tells me that he talk to her about 615 this morningand she seemed a little off with her mentation as well as her pr onunciation. 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 Reading Location: [id number] Head/Neck CTA 09/10/24 13:55 IMPRESSION: Calcific plaque [...] 3:01 pm with readback verification. Reading Location: [id number] Rhythm Strip Rhythm Strip: A-fib Rate: 75 Ectopy: None EKG Initial EKG: Attestation: I personally reviewed and interpreted this EKG as follows: Interpretation: Atrial Fibrillation Comments: Atrial fibrillation at a rate of 75 bpm Left axis deviation Moderate voltage criteria for LVH Normal ST segments Management Discussion w/another healthcare provider: Hospitalist, Chemical Equipment Controller and Radiologist Discharge Plan Triage Chief Complaint: Stroke Alert ED Provider: Teri Garcia Dx/Rx/DC Orders Clinical Impression: Difficulty with speech, [facility] current use of anticoagulant, Atrial fibrillation, chronic, [...] DO [Primary Care Provider] - Print Language: Bermudian Disposition Disposition: Acute Care Hospital [facility] NIHSS NIHSS 1a. Level of Consciousness: 0 [...] No aphasia; normal 10. Dysarthria: 1 = Qsmq-px-ckdnksfx dysarthria; 11. Extinction and Inattention: 0 - [...] your Primary Care Provider. Call [facility] ([phone]) or report tothe closest Emergency Room. Call 911 if necessary. 09/10/24 1617 Cosigner Signature (if applicable): CC: Dr. Chucky Ochoa DO ~ Signed [facility]06-13-2025 Radiology Diagnostic study note [facility] Imaging Services [address] [place] [address] STROKE CTA Head AND Neck W/Con MR#: [id number] Acct: [id number] Name: EZRA GONZALEZ Rep #: [id number] : 1935 F 89 From: Jian Gipson MD PCP: Dr. Chucky Ochoa DO Status: REG ER Study:STROKE CTA Head AND Neck W/Con Date of Exam: 09/10/24 Exam# [id number] Ordering Dr: Adeel Garcia DO PROCEDURE: STROKE [...] RIGHT Vertebral: Unremarkable. LEFT Vertebral: Unremarkable. Anatomy: [employer] of Monique anatomy is normal. Aneurysm or [...] 3:01 pm with readback verification. Reading Location: [id number] CC: Dr. Teri Garcia DO; Dr. Chucky Ochoa DO ~ Salesforce Trainer: Signed [facility]06-13-2025 Radiology Diagnostic study note [facility] Imaging Services [address] [place], [place] [address] STROKE Brain/Head without Cont MR#: [id number] Acct: [id number] Name: EZRA GONZALEZ Rep #: [id number] : 1935 F 89 From: Jian Gipson MD PCP: Dr. Chucky Ochoa DO Status: REG ER Study:STROKE Brain/Head without Cont Date of Exam: 09/10/24 Exam# [id number] Ordering Dr: Adeel Garcia DO PROCEDURE: STROKE [...] 2:05 pm with readback verification. Reading Location: [id number] CC: Dr. Teri Garcia DO; Dr. Chucky Ochoa DO ~ Salesforce Trainer: Signed [facility]06-11-2025 Discharge summary [facility] Medical Records Department [address] [place] [address] Emergency Department Summary 09/08/24 MR#: [id number] Acct: [id number] Name: EZRA GONZALEZ Rep #:[id number] : 1935 89 From: Anoop Blackmon MD [...] similar symptoms: Yes Recent Illness/Hospitalization: No PFSH PFS Medical History Closed fracture of right distal humerus Longstanding persistent atrial fibrillation COVID-19 virus detected (11/2020) Fatigue Closed fracture of inferior pubic ramus Lumbar vertebral fracture History of ST elevation myocardial infarction (STEMI) (02/14/07) Chronic diastolic (congestive) heart failure 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 Glucose is slight with a normal CO2 anion gap. Labs: Laboratory Results - last 24 hr 09/08/24 12:50 WBC 13.6 H RBC 4.40 Hgb 13.8 Hct 41.4 MCV 94.1 MCH 31.4 MCHC 33.3 RDW Std Deviation 45.2 H RDW Coeff of Sumeet 13.2 Plt Count 326 MPV 10.8 Immature Gran % (Auto) 0.400 Neut % (Auto) 75.9 H Lymph % (Auto) 16.2 L Millard % (Auto) 6.6 Eos % (Auto) 0.7 [...] with her neurologist Dr. Juarez Print Language: Bermudian Disposition Disposition: Home, Self Care What to do if you have Problems For any increased pain, shortness of breath, bleeding, nausea or vomiting, chestpain, or any unexpected problems, contact your Primary Care Provider. Call [facility] ([phone]) or report tothe closest Emergency Room. Call 911 if necessary. 09/08/24 1516 Cosigner Signature (if applicable): CC: Dr. Chucky Ochoa MD ~ Signed [facility]06-11-2025 Discharge summary Author Anoop Blackmon [facility] Note Date/Time September 08, 2024 3:16 pm [facility] Medical Records Department [address] [place] [address] Emergency Department Summary 09/08/24 MR#: [id number] Acct: [id number] Name: EZRA GONZALEZ Rep #:[id number] : 1935 89 From: Anoop Blackmon MD [...] Spinal stenosis Osteoarthritis Atherosclerotic heart disease of [place] coronary artery without angina pectoris Type 2 [...] creatinine ratio of 35:1. Glucose is slight [id number] with a normal CO2 anion gap. Labs: Laboratory Results - last 24 hr 09/08/24 12:50 WBC 13.6 H RBC 4.40 Hgb 13.8 Hct 41.4 MCV 94.1 MCH 31.4 MCHC 33.3 RDW Std Deviation 45.2 H RDW Coeff of Sumeet 13.2 Plt Count 326 MPV 10.8 Immature Gran % (Auto) 0.400 Neut % (Auto) 75.9 H Lymph % (Auto) 16.2 L Millard % (Auto) 6.6 Eos % (Auto) 0.7 [...] Plan Triage Chief Complaint: Seizure ED Provider: Blackmon,Anoop Dx/Rx/DC Orders Clinical Impression: Breakthrough seizure, Anticoagulant [...] with her neurologist Dr. Juarez Print Language: Bermudian Disposition Disposition: Home, Self Care What to do if you have Problems For any increased pain, shortness of breath, bleeding, nausea or vomiting, chestpain, or any unexpected problems, contact your Primary Care Provider. Call [facility] ([phone]) or report to the closest Emergency Room. Call 911 if necessary. 09/08/24 1516 <Electronically signed by Anoop Blackmon MD> Cosigner Signature (if applicable): CC: Dr. Chucky Ochoa MD ~ Signed [facility] Work Phone: 1(723) 800-747904-03-2025 Evaluation note* Diagnosis Onset Date Resolution Status Admit Date Longstanding persistent atrial fibrillation acute July 01, 025 10:35am Essential (primary) hypertension chronic July 01, 2024 10:35am History of coronary artery stent placement February 14, 2007 resolved July 01 025 10:35am [facility] Work Phone: 1(780) 296-639304-03-2025 Evaluation note* Diagnosis Onset Date Resolution Status Admit Date Longstanding persistent atrial fibrillation acute July 01, 2 025 10:35am Essential (primary) hypertension chronic July 01, 2024 10:35am History of coronary artery stent placement February 14, 2007 resolved July 01 025 10:35am Difficulty with speech acute [facility] 2024 4:03pm [facility] Work Phone: [phone]) 135-963904-03-2025 Evaluation note* Diagnosis Onset Date Resolution Status Admit Date Longstanding persistent atrial fibrillation acute July 01, 2 025 10:35am Essential (primary) hypertension chronic July 01, 2024 10:35am History of coronary artery stent placement February 14, 2007 resolved July 01, 025 10:35am Difficulty with speech acute [facility] 2024 4:03pm 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 2:04pm [facility] Work Phone: [phone] Evaluation note* Diagnosis Onset Date Resolution Status Admit Date Longstanding persistent atrial fibrillation acute July 01, 2 025 10:35am Essential (primary) hypertension chronic July 01, 2024 10:35am History of coronary artery stent placement February 14, 2007 resolved July 01 025 10:35am Difficulty with speech resolved 2024 4:03pm 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 2:04pm [facility] Work Phone: 1(286) 499-608502-10-2025 Evaluation note* Diagnosis Onset Date Resolution Status Admit Date Dementia acute May 10, 2024 2:34pm Epilepsy acute May 10, 2024 2:34pm Transient ischemic attack resolved May 10, 2024 2:34pm [facility] Work Phone: 1(915) 764-995502-10-2025 Evaluation note* Diagnosis Onset Date Resolution Status Admit Date Dementia acute May 10, 2024 2:34pm Epilepsy acute May 10, 2024 2:34pm Transient ischemic attack resolved May 10, 2024 2:34pm Longstanding persistent atrial fibrillation acute July 01, 025 10:35am Essential (primary) hypertension chronic July 01, 2024 10:35am History of coronary artery stent placement February 14, 2007 resolved July 01, 2024 10:35am [facility] Work Phone: 1(856) 503-348503-22-2024 NoteStart PACC Note Home Health Referral Educated patient on Home Care and services available. Patient offered choice of available HHC and agreeable to PT/OT services with [facility]. [...] is noted as yes - consider a CUSTOMER COUNTER REPRESENTATIVE evaluation once the patient returns home. START PATIENT REGISTRATION INFORMATION Order Information Order Signing Physician: Connie Perez APRN * Service Ordered RN ?: No Service Ordered PT ?: Yes Service Ordered OT ?: Yes Service Ordered ST ?: No Service Ordered CUSTOMER COUNTER REPRESENTATIVE?:No Service Ordered WAFER BATTER MIXER?: No Following Physician: ALEXANDRA HAGEN Following Physician Overseeing Physician: ALEXANDRA HAGEN (Required for Residents only) Agreeable to Follow? No Date/Time of Call 06/20/23 2:40 PM, Spoke with: BRYAN FOR OFFICE-CONFIRMED WITH JOSEP THIS IS HER PHYSICAN AND CAN SEE RECENT NOTES IN [facility] Care Coordination Same Day SOC?: No Primary Care Physician: ALEXANDRA HAGEN Primary Care Physician Primary Care Physician Address: [address] [place] [address] [address] / [facility] [id number] Visit Instructions: N/A Service Discharge Location Type: Assisted Living Service Facility Name: [facility] Floor Facility: N/A Service Room No: 105 Demographics Patient Last Name: Lisa Patient First Name: Ezra Language/Communication Barrier: NONE Service Address: [address] [place] [address] [address] Service City: [facility] ST: [place] Service ZIP: [address] Service (home) Other phone numbers: No relevant phone numbers on file. Emergency Contact: Extended Emergency Contact Information Primary Emergency Contact: Patito [place] Mobile Relation: Son Wellness Rn needed? No Secondary Emergency Contact: Ty [place] Mobile Relation: Son Admission Information Admit Date: 06/16/2023 Patient status at discharge: Inpatient Admitting Diagnosis: Closed displaced fracture of medial condyle of right humerus, initial encounter [L41.520F] Caregiver Information Caregiver First Name: NA Caregiver Last Name: NA Caregiver Relationship to Patient NA Caregiver Phone Number: NA Caregiver Notes: N/A [employer] List No END PATIENT REGISTRATION INFORMATION Pt [...] medications. Discharge Date: 06/20/23 Referral Source-PACC: (Hospital/Unit): [facility] / E7-707/E7-707 A End PACC [facility]03-22-2024 History of Present illness Narrative* Juanjo Villalba RN - 06/20/2023 3:51 PM EDT Dc via CRISTINA cot to Josep MCARTHUR with all belongings * Juanjo Villalba RN - 06/20/2023 3:01 PM EDT Called report to Maryanne kim [place] * Dc Lombardi - 06/20/2023 2:26 PM EDT [facility] Anticoagulation Management Service (RIA) Inpatient Warfarin Consult HPI: Ezra Gonzalez is a 87 y.o. female admitted on 06/16/2023 for Closed displaced fracture of medial condyle of right humerus, initial encounter [S42.732H] History reviewed. No pertinent past medical history. [...] patient can be classified as high risk ([id number] = 8). 2. Monitor for s/s of bleeding and drug interactions. Will adjust dose accordingly 3. RIA will manage while inpatient Dc Lombardi, JpD Candidate Jp BolanosD, BCPS RIA is available daily [phone] via [employer] Chat. If no response on [employer] Chat then please page [phone]. * Shayne Fonseca MD - 06/20/2023 6:05 [...] off at this time. Please page resident home service demonstrator on Secure Chat with concerns or should [...] original note were not included. PHYSICAL THERAPY [facility] Initial Evaluation Name/MRN: Ezra Gonzalez ([id number]) Evaluation Date: 06/19/2023 Date of : 1935 Admission Date: 06/16/2023 1:38 PM Age: 87 y.o. Room/Bed: E7-707/E7-707 A Discharge Recommendation: Home with Home health PT (return to [place]) Equipment Needed: No Assessment IMPRESSION: 87 y.o. pt admitted to [facility] for closed fracture RUE, s/p ORIF R humerus 06/17. They were Min A for bed mobility, Min A for transfers, and Min A for ambulation. Pt limited d/t balance. If from [place] where she can receive Min A for all ADLs and mobility. Would recommend return to [place] and [facility] PTat discharge. Diagnosis: closed fracture RUE, [...] correction Ambulation Ambulation 1 Assistive device(s) used: WAFER BATTER MIXER Assist level: Min Assist Distance (ft): 15' [...] Raw Score (No Stairs) : 18 [facility] Score: Walked 25 ft or more [...] of Care supervision is transferred to a [facility] Therapy Services Physical Therapist. Goals and/or treatment plan was established in collaboration with patient/family/other representatives. * Enedelia Sanches RPh - 06/19/2023 1:50 PM EDT [facility] Anticoagulation Management Service (RIA) Inpatient Warfarin Consult HPI: Ezra Gonzalez is a 87 y.o. female admitted on 06/16/2023 for Closed displaced fracture of medial condyle of right humerus, initial encounter [S42.806M] History reviewed. No pertinent past medical history. [...] patient can be classified as high risk ([id number] = 8). 2. Monitor for s/s of bleeding and drug interactions. Will adjust dose accordingly 3. RIA will manage while inpatient Dc Lombardi, pJD Candidate Toshia Sanches, JpD, BCPS RIA is available daily [phone] via [employer] Chat. If no response on [employer] Chat then please page [phone]. * Kavon Diallo OT - 06/19/2023 11:54 AM EDT Images from the original note were not included. OCCUPATIONAL THERAPY [facility] Initial Evaluation Name/MRN: Ezra Gonzalez ([id number]) Evaluation Date: 06/19/2023 Date of : 1935 Admission Date: 06/16/2023 1:38 PM Age: 87 y.o. Room/Bed: [facility]707/[facility]70 A Discharge Recommendation: Continue to assess [...] of Care supervision is transferred to a [facility] Therapy Services Occupational Therapist. Goals and/or treatment plan was established in collaboration with patient/family/other representatives. * Connie Perez APRN - CHILD CARE SPECIALIST - 06/19/2023 9:52 AM EDT Images from the original note were not included. Hospitalist Progress Note 06/19/2023 Subjective: Admit Date: 06/16/2023 PCP: No primary care provider on file. Room#: E7-707/E7701 A BRIEF HOSPITAL COURSE: Ezra is a [...] Eating and drinking fair, looking forward to [place]. Understands likely not back to [place] as [...] Emergency Contact: Patito Cuba Mobile Relation: Son Wellness Rn needed? No Secondary Emergency Contact: Ty [place] Mobile Relation: Son Connie JANNETTE Perez CNP Division of Hospitalist Medicine [place] [facility] * Huma Tavarez MD - [...] be monitored and followed by the diet optical laboratory technician. NICA Watts * Louisa Cespedes OT - 06/18/2023 8:26 AM EDT Images from the original note were not included. OCCUPATIONAL THERAPY [facility] Name/MRN: Ezra Gonzalez ([id number]) Date: 06/18/2023 OT eval and treat order received. Patient chart reviewed. Per Ortho note, Plan for ORIF od R distal humerus. Will hold evaluation till after surgery. Louisa Cespedes OT * JANNETTE Hall CNP - 06/18/2023 8:00 AM EDT Images from the original note were not included. Hospitalist Progress Note 06/18/2023 Subjective: Admit Date: 06/16/2023 PCP: No primary care provider on file. Room#: B2-770/V8-690 A BRIEF HOSPITAL COURSE: Ezra is a [...] Emergency Contact: Patito [place] Mobile Relation: Son Wellness Rn needed? No Secondary Emergency Contact: Ty [place] Mobile Relation: Son Connie JANNETTE Perez CNP Division of Hospitalist Medicine [facility] * Maryanne Neumann PT - 06/18/2023 7:27 AM EDT Images from the original note were not included. PHYSICAL THERAPY [facility] Name/MRN: Ezra Gonzalez ([id number]) Date: 06/18/2023 PT orders received and chart [...] tomorrow, 06/17. Ok for diet today. NPO @PA. Keep splint C/D/I. Evette Viera MD Orthopaedic Surgery, PGY-5 [phone] * Connie Perez APRN - CHILD CARE SPECIALIST - 06/17/2023 7:46 AM EDT Images from [...] Extended Emergency Contact Information Primary Emergency Contact: GillesPatito husain Mobile Relation: Son Wellness Rn needed? No Secondary Emergency Contact: GillesrodrigueTy Mobile Relation: Son JANNETTE Hall CNP Division of Hospitalist Medicine [facility] * Shayne Fonseca MD - 06/17/2023 6:11 [...] + AIN/PIN/ulnar nerve functions documented in this [facility]03-22-2024 Miscellaneous Notes* Care Coordination - Unknown Case Management - 06/20/2023 2:58 PM EDT Patient Choice Patient Name: EZRA GONZALEZ Date of : 1935 All Providers Sent Referral Name: [facility] Phone: [phone] Address: [address] [place] [address] * Home Care - Vivian Bills RN - 06/20/2023 2:40 PM EDT Start PACC Note Home Health Referral Educated patient on Home Care and services available. Patient offered choice of available HHC and agreeable to PT/OT services with [facility] - Home Care. Care Types: [...] is noted as yes - consider a CUSTOMER COUNTER REPRESENTATIVE evaluation once the patient returns home. START PATIENT REGISTRATION INFORMATION Order Information Order Signing Physician: Connie Perez APRN * Service Ordered RN ?: No Service Ordered PT ?: Yes Service Ordered OT ?: Yes Service Ordered ST ?: No Service Ordered CUSTOMER COUNTER REPRESENTATIVE?:No Service Ordered WAFER BATTER MIXER?: No Following Physician: ALEXANDRA HAGEN Following Physician Overseeing Physician: ALEXANDRA HAGEN (Required for Residents only) Agreeable to Follow? No Date/Time of Call 06/20/23 2:40 PM, Spoke with: BRYAN FOR OFFICE-[facility]IR[facility] THIS IS HERPHYSICAN AND CAN SEE RECENT NOTES IN [facility] Care Coordination Same Day SOC?: No Primary Care Physician: ALEXANDRA HAGEN Primary Care Physician Primary Care Physician Address: [address] [place] [address] 105 / [facility] [id number] Visit Instructions: N/A Service Discharge Location Type: Assisted Living Service Facility [facility]: [facility] Floor Facility: N/A Service Room No: 105 Demographics Patient Last Name: Lisa Patient First Name: Ezra Language/Communication Barrier: NONE Service Address: [address] [place] [address] 105 Service City: [facility] ST: [place] Service ZIP: [address] Service (home) Other phone numbers: No relevant phone numbers on file. Emergency Contact: Extended Emergency Contact Information Primary Emergency Contact: Patito [place] Mobile Relation: Son Wellness Rn needed? No Secondary Emergency Contact: Ty [place] Mobile Relation: Son Admission Information Admit Date: 06/16/2023 Patient status at discharge: Inpatient Admitting Diagnosis: Closed displaced fracture of medial condyle of right humerus, initial encounter [S49.750O] Caregiver Information Caregiver First Name: NA Caregiver Last Name: NA Caregiver Relationship to Patient NA Caregiver Phone Number: NA Caregiver Notes: N/A [facility] List No END PATIENT REGISTRATION INFORMATION Pt [...] medications. Discharge Date: 06/20/23 Referral Source-PACC: (Hospital/Unit): [facility] / [id number]/[id number] A End PACC Note [...] order lunch. Notified TONIO, RN and community engagement specialist. . * Care Coordination - Shikha Gray RN - 06/20/2023 11:01 AM EDT I SPOKE WITH DONOVAN, GUEST SERVICES ATTENDANT AT [facility]. THEY CAN TAKE PT BACK TODAY. THEY CAN PROVIDE TRANSPORTATION BACK TO FACILITY AROUND 3 PM. AWARE PT WILL NEED PT AT FACILITY, THEY USE [facility], DID LET HC LIAISON NOW. WENT TO [...] PM EDT Date: 06/16/2023 - 06/18/2023 Location: [facility] OR Name: Ezra Gonzalez, : 1935, Diagnosis Pre-op Diagnosis * Closed displaced fracture of medial condyle of right humerus, initial encounter [S42.461A] Post-op Diagnosis * Closed displaced fracture of medial condyle of right humerus, initial encounter [S42.461A] Procedures OPEN REDUCTION INTERNAL FIXATION RIGHT DISTAL HUMERUS 00417 - MA OPTX HUMERAL SHFT FX W/PLATE/SCREWS W/WOCERCLAGE Surgeons * Benitez Givens - Primary Procedure Summary Anesthesia: * No anesthesia type entered * ASA: III Estimated Blood Loss: Minimal Drains: * None in log * Staff: Noodle Maker: Vivian Herrera RN Scrub Person: Lnida Alvarez RN Findings: please see full op [...] Limits Permission given to speak with patient sales and marketing representative/caregiver as indicated: No Confirmation of Payer with patient/family: Yes Payer Name: [facility] : No Confirmation of Primary Care Physician: Confirmed Primary Caregiver: Self If assistance needed, confirmed caregiver ready, willing and able to care for patient at discharge: Confirmed with: Living Arrangements Current Residence: Number of Floors Number of Entry Steps: Bed/Bath Levels: Facility: Assisted Living Facility Name: [facility] Plan to Return: Yes Lives with: Alone [...] Assistance Provider Meal Prep Assistance Provider Name: [place] STAFF Laundry/Cleaning: Assistance Provider Laundry/Cleaning Assistance Provider Name: [place] STAFF Finances/Bill Paying: Independent Communication: Independent Types [...] RETURN TO [place], WILL CONTINUE TO FOLLOW. hSikha Gray RN * Care Plan - Yvan Sepulveda RN - 06/17/2023 11:35 PM EDT The patient is Moderately Stable - Low risk of patient condition declining or worsening The patient's goals for the shift include rest and pain control The clinical goals for the shift include rest and pain control documented in this encounterSAultman Alliance Community HospitalOdhens95-09-2913 Note* Care Coordination - Unknown Case Management - 06/20/2023 2:58 PM EDT Patient Choice Patient Name: EZRA GONZALEZ Date of : 1935 All Providers Sent Referral Name: [facility] Phone: [phone] Address: [address] [place] [address] [facility] [id number] Note* Care Coordination - Unknown Case Management - 06/20/2023 2:58 PM EDT Patient Choice Patient Name: EZRA GONZALEZ Date of : 1935 All Providers Sent Referral Name: [facility] Phone: [phone] Address: [address] [place] [address] [facility] [id number] Note* Home Care - Vivian Bills RN - 06/20/2023 2:40 PM EDT Start PACC Note Home Health Referral Educated patient on Home Care and services available. Patient offered choice of available HHC and agreeable to PT/OT services with [facility] - Home Care. Care Types: [...] is noted as yes - consider a CUSTOMER COUNTER REPRESENTATIVE evaluation once the patient returns home. START PATIENT REGISTRATION INFORMATION Order Information Order Signing Physician: Connie Perez APRN * Service Ordered RN ?: No Service Ordered PT ?: Yes Service Ordered OT ?: Yes Service Ordered ST ?: No Service Ordered CUSTOMER COUNTER REPRESENTATIVE?:No Service Ordered WAFER BATTER MIXER?: No Following Physician: ALEXANDRA HAGEN Following Physician Overseeing Physician: ALEXANDRA HAGEN (Required for Residents only) Agreeable to Follow? No Date/Time of Call 06/20/23 2:40 PM, Spoke with: BRYAN FOR OFFICE-CONFIRMED WITH [facility] THIS IS HERPHYSICAN AND CAN SEE RECENT NOTES IN [facility] Care Coordination Same Day SOC?: No Primary Care Physician: ALEXANDRA HAGEN Primary Care Physician Primary Care Physician Address: Bob Odom [address] [address] Visit Instructions: N/A Service Discharge Location Type: Assisted Living Service [facility] Name: [facility] Floor Facility: N/A Service Room No: 105 Demographics Patient Last Name: Lisa Patient First Name: Ezra Language/Communication Barrier: NONE Service Address: [address] [place] [address] [address] Service City: [facility] ST: [place] Service ZIP: [address] Service (home) Other phone numbers: No relevant phone numbers on file. Emergency Contact: Extended Emergency Contact Information Primary Emergency Contact: Patito Cuba Mobile Relation: Son Wellness Rn needed? No Secondary Emergency Contact: Ty [place] Mobile Relation: Son Admission Information Admit Date: 06/16/2023 Patient status at discharge: Inpatient Admitting Diagnosis: Closed displaced fracture of medial condyle of right humerus, initial encounter [S42.584S] Caregiver Information Caregiver First Name: NA Caregiver [...] medications. Discharge Date: 06/20/23 Referral Source-PACC: (Hospital/Unit): [facility] / [id number]/[id number] A End PACC Note [facility] [id number] Note* Home Care - Vivian Bills RN - 06/20/2023 2:40 PM EDT Start PACC Note Home Health Referral Educated patient on Home Care and services available. Patient offered choice of available HHC and agreeable to PT/OT services with [facility] - [facility]. [...] is noted as yes - consider a CUSTOMER COUNTER REPRESENTATIVE evaluation once the patient returns home. START PATIENT REGISTRATION INFORMATION Order Information Order Signing Physician: Connie Preez APRN * Service Ordered RN ?: No Service Ordered PT ?: Yes Service Ordered OT ?: Yes Service Ordered ST ?: No Service Ordered CUSTOMER COUNTER REPRESENTATIVE?:No Service Ordered WAFER BATTER MIXER?: No Following Physician: ALEXANDRA HAGEN Following Physician Overseeing Physician: ALEXANDRA HAGEN (Required for Residents only) Agreeable to Follow? No Date/Time of Call 06/20/23 2:40 PM, Spoke with: BRYAN FOR OFFICE-CONFIRMED WITH [facility] THIS IS HERPHYSICAN AND CAN SEE RECENT NOTES IN EPIC Care Coordination Same Day SOC?: No Primary Care Physician: ALEXANDRA HAGEN Primary Care Physician Primary Care Physician Address: [address] [place] [address] [address] / [facility] [phone] Visit Instructions: N/A Service Discharge Location Type: Assisted Living Service Facility Name: [facility] Floor Facility: N/A Service Room No: 105 Demographics Patient Last Name: Lisa Patient First Name: Ezra Language/Communication Barrier: NONE Service Address: [address] [facility] [address] Service City: [facility] ST: [place] Service ZIP: [address] Service (home) Other phone numbers: No relevant phone numbers on file. Emergency Contact: Extended Emergency Contact Information Primary Emergency Contact: Patito Cuba Mobile Relation: Son Wellness Rn needed? No Secondary Emergency Contact: yT [place] Mobile Relation: Son Admission Information Admit Date: 06/16/2023 Patient status at discharge: Inpatient Admitting Diagnosis: Closed displaced fracture of medial condyle of right humerus, initial encounter [S40.032S] Caregiver Information Caregiver First Name: NA Caregiver Last Name: NA Caregiver Relationship to Patient NA Caregiver Phone Number: NA Caregiver Notes: N/A [employer] List No END PATIENT REGISTRATION INFORMATION Pt [...] medications. Discharge Date: 06/20/23 Referral Source-PACC: (Hospital/Unit): [facility] / E7-707/E7-707 A End PACC Note [facility] CenterUibnvv69-74-3712 NoteHospitalist Discharge Summary Ezra Gonzalez : 1935 [...] primary care provider Schedule (more content not included)...[facility]03-22-2024 Note* Care Coordination - SELINA Magaña [...] order lunch. Notified TONIO, RN and community engagement specialist. . [facility]03-22-2024 Note* Care Coordination - SELINA Magaña [...] for SW. Helped pt order lunch. Notified TCC, RN and community engagement specialist. . [facility]03-22-2024 Note* Care Coordination - Shikha Gray RN - 06/20/2023 11:01 AM EDT I SPOKE WITH DONOVAN, GUEST SERVICES ATTENDANT AT [facility]. THEY CAN TAKE PT BACK TODAY. THEY CAN PROVIDE TRANSPORTATION BACK TO FACILITY AROUND 3 PM. AWARE PT WILL NEED PT AT FACILITY, THEY USE [facility], DID LET LIAISON NOW. WENT TO [...] SECURE CHAT WITH CONNIE PEREZ REGARDING THIS. [facility] CenterItltts09-85-9778 Note* Care Coordination - Shikha Gray RN - 06/20/2023 11:01 AM EDT I SPOKE WITH DONOVAN, GUEST SERVICES ATTENDANT AT [facility]. THEY CAN TAKE PT BACK TODAY. THEY CAN PROVIDE TRANSPORTATION BACK TO FACILITY AROUND 3 PM. AWARE PT WILL NEED PT AT FACILITY, THEY USE [facility], DID LET LIAISON NOW. WENT TO SPEAK [...] SECURE CHAT WITH CONNIE PEREZ REGARDING THIS. [facility] CenterYfgblq48-75-4160 Hospital course Narrative* Connie Perez, JANNETTE - CHILD CARE SPECIALIST - 06/20/2023 10:18 AM EDT Images from [...] as possible for a visit As needed [facility] Go to Appointment scheduled 06/26/23 at 10:[address] Givens. [address] [facility] Complexity of Follow up: [x] Moderate Complexity: follow up within 7-14 calendar days (70766) [] Severe Complexity: follow up within 7 calendar days (49033) Follow up Testing, Pending results or Referrals [...] time frame. Signed: Connie Perez APRN - [facility] Division of [facility] 06/20/2023, 1:11 PM documented in this [facility]03-22-2024 [facility] Progress Note ASSESSMENT AND [...] off at this time. Please page resident home service demonstrator on Secure Chat with concerns or should [...] in all distributions -Motor function intact to AIN/PIN/[facility]lnarA[facility] [id number] Note PHYSICAL THERAPY [facility] Initial Evaluation Name/MRN: Ezra Gonzalez ([id number]) Evaluation Date: 06/19/2023 Date of : 1935 Admission Date: 06/16/2023 1:38 PM Age: 87 y.o. Room/Bed: [facility]707/[facility] A Discharge Recommendation: Home with Home health PT (return to [place]) Equipment Needed: No Assessment IMPRESSION: 87 y.o. pt admitted to [facility] for closed fracture RUE, s/p ORIF R humerus 06/17. They were Min A for bed mobility, Min A for transfers, and Min A for ambulation. Pt limited d/t balance. If from [place] where she can receive Min A for all ADLs and mobility. Would recommend return to [place] and [facility] PT at discharge. Diagnosis: closed fracture [...] correction Ambulation Ambulation 1 Assistive device(s) used: WAFER BATTER MIXER Assist level: Min Assist Distance (ft): 15' [...] eval, 1 FA) Dillon (more content not included)...[facility]03-21-2024 Note* Care Coordination - Shikha Gray RN - 06/19/2023 2:05 PM EDT DAY #1 S/P ORIF OF RIGHT ARM. WAITING FOR PT/OT EVALS FOR DC PLANNING. [facility] CenterVrgrll82-53-3652 Note* Care Coordination - Shikha Gray RN - 06/19/2023 2:05 PM EDT DAY #1 S/P ORIF OF RIGHT ARM. WAITING FOR PT/OT EVALS FOR DC PLANNING. [facility] CenterEletoh04-22-2137 NoteOCCUPATIONAL THERAPY [facility] Initial Evaluation Name/MRN: Ezra Gonzalez ([id number]) Evaluation Date: 06/19/2023 Date of : 1935 [...] 06/19/23 Expected End: 07/17/23 (more content not included)...[facility] [id number] Note Hospitalist Progress Note 06/19/2023 Subjective: Admit Date: 06/16/2023 PCP: No primary care provider on file. Room#: K0-013/C1-547 A BRIEF HOSPITAL COURSE: Ezra is a [...] Full Code Anticipated Dischar (more content not included)...[facility] 06-19-2023 [facility] Progress Note ASSESSMENT AND [...] Procedure Summary Date: 06/18/23 Room / Location: [address] Operating Room Anesthesia Start: 1541 Anesthesia [...] once all PACU criteria has been met.[facility]03-20-2024 NotePatient: Ezra Gonzalez Procedure Summary Date: 06/18/23 Room / Location: [address] Operating Room Anesthesia Start: 1541 Anesthesia [...] Allowed opportunity for questions and acknowledgement of understanding.[facility]03-20-2024 Note* Perioperative Nursing Note - Irina Khan RN - 06/18/2023 8:11 PM EDT Pt states no need to contact family. RN on floor states she will call pt's son,. [facility] CenterVbddjw68-75-4727 Note* Perioperative Nursing Note - Irina Khan RN - 06/18/2023 8:11 PM EDT Pt states no need to contact family. RN on floor states she will call pt's son,. [facility] CenterDqomcl02-45-9797 NoteAirway Date/Time: 06/18/2023 3:56 PM Urgency: scheduled General Information and Staff Patient location during procedure: Procedural Resident/MAINTENANCE TECH: Sae Lora CRNA Performed: MAINTENANCE TECH Indications and Patient Condition Indications for airway [...] (cm): 21 Number of attempts at approach: [address] [place], [place] [address]-20-2024 Note Peripheral IV Date/Time: 06/18/2023 4:00 PM Inserted by: Deisy Patel APRN - MAINTENANCE TECH Placement Needle size: 20 G Laterality: left Location: upper arm. Local anesthetic: none Site prep: alcohol Technique: ultrasound guided Attempts: [address] [place], [place] [address]-20-2024 NotePeripheral Block Time Out: 06/18/2023 3:28 PM Patient location during procedure: Procedural Start time: 06/18/2023 3:28 PM End time: 06/18/2023 3:32 PM Reason for block: at surgeon's request and post-op pain management Staffing Performed: MAINTENANCE TECH Resident/MAINTENANCE TECH: Deisy Patel APRN - [facility] Preanesthetic Checklist Completed: patient identified, IV checked, [...] No paresthesias reported by patient during injectionMedications lmfGNMGLmgyrt-cwmjqchfktw-hlfpxrwqrvq (TAP) syringe - Injection 30 mL - 06/18/2023 3:28:00 [facility] [id number] NotePatient: Ezra Gonzalez Procedure Information Date/Time: 06/18/23 1530 Procedure: OPEN REDUCTION INTERNAL FIXATION RIGHT DISTAL HUMERUS (Right: Arm Upper) - requesting 330, if can't go at 330 will consider friday Location: [facility] OR [address] [place] [address] Operating Room Surgeons: Benitez Givens MD Relevant [...] by: Thong Francois DO on 06/17/2023 6:39 [facility] 06-18-2023 Hospital Discharge instructions* Discharge Instructions* Evette [...] Emergency Contact Information Primary Emergency Contact: Patito Cuab Mobile Relation: Son Wellness Rn needed? No Secondary Emergency Contact: Ty Cuba [...] (78.9 kg) Mental Status: {MITCHEL Patient Mental Status:10734} IV Access: {MITCHEL IV Access:02146} Nursing Mobility/ADLs: Walking {MALLY ADL:68477::Independent} Transfer {MALLY ADL:49829::Independent} Bathing {MALLY ADL:54341::Independent} Dressing {MALLY ADL:87257::Independent} Toileting {MALLY ADL:44616::Independent} Feeding {MALLY ADL:91388::Independent} Grade Recorder {MALLY ADL:40317::Independent} Med Delivery {yes/no:31708} Wound Care Documentation and Therapy: Wound/Incision 06/18/23 Incision Arm Anterior;Right;Upper (Active) Site Assessment Clean;Dry 06/19/232147 Treatments Sling 06/19/232147 Primary Dressing Xeroform 06/19/23 1024 Dressing Status Clean, dry & intact 06/19/232147 Number of days: 1 Elimination: Continence: Bowel: {yes/no:17973} Bladder: {yes/no:74914} Urinary Catheter: {MITCHEL Urinary Catheter:43954} Colostomy/Ileostomy/Ileal Conduit: {YES / NO:} Date of Last BM: No intake or output data in the 24 hours ending 06/20/23 1025 I/O last 3 completed shifts: In: 711 (9 mL/kg) [P.O.:280; I.V.:114 (1.4 mL/kg); IV Piggyback:317] Out: 600 (7.6 mL/kg) [Urine:350 (0.1 mL/kg/hr); Blood:250] Weight: 78.9 kg Safety Concerns: {MITCHEL Safety Concerns:38033} Impairments/Disabilities: {MITCHEL Impairments/Disabilities:42103} Nutrition Therapy: Current Nutrition Therapy: {MITCHEL Diet List:42090} Routes of Feeding: {routes of feedin} Liquids: {liquid consistency:57018} Daily Fluid Restriction: {daily fluid restriction:69875} Last Modified Barium Swallow with Video (Video Swallowing Test): {done not done:64719} Treatments at the Time of Hospital Discharge: Respiratory Treatments: Oxygen Therapy: {Therapy; copd oxygen:59702} Ventilator: {MITCHEL Ventilator:18211} Rehab Therapies: {GEN THERAPY DISCIPLINE SCAL:1761085} Weight Bearing Status/Restrictions: {POD WEIGHT BEARIN} Other Medical Equipment (for information only, NOT a DME order): {Assistive Devices DME:27453} Other Treatments: Patient's personal belongings (please select all that are sent with patient): {MITCHEL Patient Belongings:32708} RN SIGNATURE: {E-signature:66707} CASE MANAGEMENT/SOCIAL WORK SECTION Inpatient Status Date: 06/16/23 Readmission Risk Assessment Score: @READMISSIONRISKDETAILS@ Discharging to Facility/ Agency Discharging to Facility/ Agency Name: [facility] Address: [address] [place] [address] [facility] [place] Address:[address] [place] [address] ~28.4 mi Fax: Dialysis Facility (if applicable) Name: Address: Dialysis Schedule: Phone: Fax: Gas Combustion Engineer/Production Operations Engineer signature: ICIAN SECTION Prognosis: good Condition at [...] in H&P PHYSICIAN SIGNATURE: documented in this [facility]03-20-2024 Note* Brief Op Note - Lexa Aparicio MD - 06/18/2023 3:42 PM EDT Date: 06/16/2023 - 06/18/2023 Location: [facility] OR Name: Ezra Gonzalez, : 1935, Diagnosis Pre-op Diagnosis * Closed displaced fracture of medial condyle of right humerus, initial encounter [S42.461A] Post-op Diagnosis * Closed displaced fracture of medial condyle of right humerus, initial encounter [S42.461A] Procedures OPEN REDUCTION INTERNAL FIXATION RIGHT DISTAL HUMERUS 65418 - MA OPTX HUMERAL SHFT FX W/PLATE/SCREWS W/WOCERCLAGE Surgeons * Benitez Givens - Primary Procedure Summary Anesthesia: * No anesthesia type entered * ASA: III Estimated Blood Loss: Minimal Drains: * None in log * Staff: Noodle Maker: Vivian Herrera RN Scrub Person: Linda [...] Givens in 2 weeks -Ortho to follow. [facility] Phone: 1(196) 549-767103-20-2024 Note* Brief Op Note - Lexa Aparicio MD - 06/18/2023 3:42 PM EDT Date: 06/16/2023 - 06/18/2023 Location: [facility] OR Name: Ezra Gonzalez, : 1935, Diagnosis Pre-op Diagnosis * Closed displaced fracture of medial condyle of right humerus, initial encounter [S42.461A] Post-op Diagnosis * Closed displaced fracture of medial condyle of right humerus, initial encounter [S42.461A] Procedures OPEN REDUCTION INTERNAL FIXATION RIGHT DISTAL HUMERUS 02557 - [place] OPTX HUMERAL SHFT FX W/PLATE/SCREWS W/WOCERCLAGE Surgeons * Benitez Givens - Primary Procedure Summary Anesthesia: * No anesthesia type entered * ASA: III Estimated Blood Loss: Minimal Drains: * None in log * Staff: Noodle Maker: Vivian Herrera RN Scrub Person: Linda [...] Givens in 2 weeks -Ortho to follow. [facility] Phone: 1(243) 993-836803-20-2024 Note* Perioperative Nursing Note - Deisy Gonazlez RN - 06/18/2023 3:29 PM EDT Patients wallet and watch locked up with security. OR notified patient states she has latex allergy Patients purse and glasses taken to pacu [id number] Note* Perioperative Nursing Note - Deisy Gonzalez RN - 06/18/2023 3:29 PM EDT Patients wallet and watch locked up with security. OR notified patient states she has latex allergy Patients [facility] glasses [id number]* Care Coordination - Shikha Gray RN - 06/18/2023 1:03 PM EDT Care Managment Initial Assessment Date: 06/18/2023 Patient Name: Ezra Gonzalez : 1935 Patient Information Source of Information: Patient Cognition/Language: WFL - Within Functional Limits Permission given to speak with patient sales and marketing representative/caregiver as indicated: No Confirmation of Payer with patient/family: Yes Payer Name: [facility] [place]: No Confirmation of Primary Care Physician: Confirmed Primary Caregiver: Self If assistance needed, confirmed caregiver ready, willing and able to care for patient at discharge: Confirmed with: Living Arrangements Current Residence: Number of Floors Number of Entry Steps: Bed/Bath Levels: Facility: Assisted Living [facility] Plan to Return: Yes Lives with: Alone [...] WILL CONTINUE TO FOLLOW. Shikha Gray RN [facility] [id number] Note* Care Coordination - Shikha Gray RN - 06/18/2023 1:03 PM EDT Care Managment Initial Assessment Date: 06/18/2023 Patient Name: Ezra Gonzalez : 1935 Patient Information Source of Information: Patient Cognition/Language: WFL - Within Functional Limits Permission given to speak with patient sales and marketing representative/caregiver as indicated: No Confirmation of Payer with patient/family: Yes Payer Name: [facility] : No Confirmation of Primary Care Physician: Confirmed Primary Caregiver: Self If assistance needed, confirmed caregiver ready, willing and able to care for patient at discharge: Confirmed with: Living Arrangements Current Residence: Number of Floors Number of Entry Steps: Bed/Bath Levels: Facility: Assisted Living [facility] Plan to Return: Yes Lives with: Alone [...] WILL CONTINUE TO FOLLOW. Shikha Gray RN [facility] [id number] NoteHospitalist Progress Note 06/18/2023 Subjective: Admit Date: 06/16/2023 PCP: No primary care provider on file. Room#: E7707/W4-747 A BRIEF HOSPITAL COURSE: Ezra is a [...] Emergency Contact: Patito Cuba Mobile Relation: Son Wellness Rn needed? No Se (more content not included)...[facility]03-20-2024 Note Department of Orthopedic Surgery Progress [...] radial/median/ulnar/axillary nerve distributions -Motor + AIN/PIN/ulnar nerve functionsBeaumont Hospital03-19-2024 Plan of care note* Care Plan - Yvan Sepulveda RN - 06/17/2023 11:35 PM EDT The patient is Moderately Stable - Low risk of patient condition declining or worsening The patient's goals for the shift include rest and pain control The clinical goals for the shift include rest and pain control [facility] [id number] Nurse Note* Yvan Sepulveda RN - 06/17/2023 9:22 PM EDT Patient home medication list updated, provider made aware. [facility] [id number] Nurse Note* Yvan Sepulveda RN - 06/17/2023 9:22 PM EDT Patient home medication list updated, provider made aware. documented in this [facility]03-19-2024 Emergency department Note* Di Reyna RN - 06/17/2023 11:52 AM EDT Patient resting in bed at this time, equal unlabored respirations noted and no acute distress, callbell within reach Di Reyna RN 06/17/23 1153 [facility] [id number] Emergency department Note* Di Reyna RN - [...] MD notified Alia Foster RN 06/17/23 1031 * [...] US IV line. Juanjo Pringle RN 06/16/23 * NADIA Ruiz - 06/16/2023 12:38 PM EDT Images from the original note were not included. EMERGENCY DEPARTMENT ENCOUNTER Pt Name: Ezra Gonzalez Birthdate 1935 Date of evaluation: 06/16/2023 ED Provider: NADIA Ruiz CHIEF COMPLAINT Chief Complaint Patient presents with Arm Injury Pt arrives via [facility] with complaints of right elbow fracture.Patient [...] injury anywhere else. Patient was evaluated at [facility] emergency department prior to arrival and was noted to have a distal humerus fracture. Patient was transferred to [facility] ED for orthopedic consultation. Patient denies any [...] Culture. Procedure Abnormality Status --------- ------ Complete Urinalysis[[id number]] Please view results for these tests on [...] 0.5 mg (0.5 mg IntraVENous Given 06/16/23 6998) ED care was supervised by Dr. Conde who independently examined and evaluated the patient. Please see their attestation note for further details. In brief, Ezra Gonzalez is a 87 y.o. female who presented to the emergency department for evaluation of a right arm injury. Patient was seen at [facility] prior to arrival was noted to have a distal humerus fracture. Patient transferred to [facility] ED for orthopedic consultation. Nursing notes and medical records reviewed, no recent visits or studies currently patient's presenting symptoms. Differential considerations included distal humerus fracture. Initial medical management includes no initial medical management was initially in the ED. Patient was given 12.5 mcg of fentanyl prior to arrival. Initial workup includes CBC, BMP, PT/INR, type and screen, x-ray right elbow. CT head from [place] ED -shows no signs of acute cranial abnormalities. CXR from [place] ED prior to arrival -blunting of bilateral [...] 06/16/2023 12:38 PM EDT Emergency Department Encounter [facility] EMERGENCY DEPT Patient: Ezra Gonzalez : 1935 [...] [employer] Sae Conde MD 06/16/23 1626 documented in this [facility]03-19-2024 Emergency department Note* Alia Foster RN - 06/17/2023 10:00 AM EDT Pt O2 desaturating to mid 80s after receiving dilaudid IV. Pt placed on 2L NC and immediately back up to 95%. notified Alia Foster RN 06/17/23 1031 [facility] [id number] NoteHospitalist Progress Note 06/17/2023 Subjective: Admit Date: [...] does not feel safe [place] back to [place] at [place]. Since patient staying ortho [...] Emergency Contact: Patito Cuba Mobile Relation: Son Wellness Rn needed? No Secondary Emergency Contact: Ty Cuba Mobile Relation: Son Connie PerezJANNETTE - CHILD CARE SPECIALIST Division of Hospitalist Medicine [facility]03-19-2024 NoteDepartment of Orthopedic Surgery Progress Note ASSESSMENT [...] ulnar nerve distributions -Motor + AIN/PIN/ulnar nerve functionsBeaumont Hospital03-18-2024 Emergency department Note* Juanjo Pringle RN [...] US IV line. Juanjo Pringle RN 06/16/23 8124 [facility] [id number] NoteAttending History and Physical Admit Date: 06/16/2023 [...] does not feel [place] at [place]. Since patient staying ortho [...] Pain control am labs, (more content not included)...[facility] [id number] History and physical note* Jayshree Cortez MD [...] Emergency Contact: Patito Cuba Mobile Relation: Son Wellness Rn needed? No Secondary Emergency Contact: Ty Cuba Mobile Relation: Son Jayshree Cortez MD Division of Hospitalist Medicine [facility] BUX Phone: [phone] 361-941703-18-2024 History and physical note* Jayshree Cortez MD [...] does not feel [place] to [place] at [place] time. Since patient staying ortho [...] Emergency Contact: Patito Cuba Mobile Relation: Son Wellness Rn needed? No Secondary Emergency Contact: BereketTy Mobile Relation: Son Jayshree Cortez MD Division of Hospitalist Medicine [facility] documented in this [facility]03-18-2024 Physician Emergency department Note* NADIA Ruiz - 06/16/2023 12:38 PM EDT Images from the original note were not included. EMERGENCY DEPARTMENT ENCOUNTER Pt Name: Ezra Gonzalez Birthdate 1935 Date of evaluation: 06/16/2023 ED Provider: NADIA Ruiz CHIEF COMPLAINT Chief Complaint Patient presents with Arm Injury Pt arrives [facility] with complaints of right elbow fracture.Patient [...] injury anywhere else. Patient was evaluated at [facility] emergency department prior to arrival and was noted to have a distal humerus fracture. Patient was transferred to [facility] ED for orthopedic consultation. Patient denies any [...] Report Dictated on Electronically Signed By: Reji Lmeus MD Electronically Signed Date/Time: 06/16/2023 3:30 PM [...] Culture. Procedure Abnormality Status --------- ------ Complete Urinalysis[[id number]] Please view results for these tests on [...] right arm injury. Patient was seen at [facility] prior to arrival was noted to have a distal humerus fracture. Patient transferred to [facility] ED for orthopedic consultation. Nursing notes and medical records reviewed, no recent visits or studies currently patient's presenting symptoms. Differential considerations included distal humerus fracture. Initial medical management includes no initial medical management was initially in the ED. Patient was given 12.5 mcg of fentanyl prior to arrival. Initial workup includes CBC, BMP, PT/INR, type and screen, x-ray right elbow. CT head from [place] ED -shows no signs of acute cranial abnormalities. CXR from [place] ED prior to arrival -blunting of bilateral [...] Emergency Medicine Provider NADIA Ruiz 06/16/23 1635 [facility] [id number] Physician Emergency department Note* Sae Conde MD - 06/16/2023 12:38 PM EDT Emergency Department Encounter [facility] EMERGENCY DEPT Patient: Ezra Gonzalez : 1935 [...] [employer] Sae Conde MD 06/16/23 1626 BUX Phone: 1(777) 130-429809-30-2023 Discharge summary [facility] December 27, 2022 10:31pm Note Date/Time December 27, 2022 3:52pm [facility] Medical Records Department [address] [place] [address] Emergency Department Summary 12/27/22 MR#: [id number] Acct: [id number] Name: EZRA GONZALEZ Rep #:[id number] : 1935 87 From: Lali Pimentel MD PCP: Dr. Rosemary Doran MD Status:ADM MARIELOS Location: [place] [address] HPI History of Present Illness Chief Complaint: [...] repeat a phrase her speech is garbled. [facility] Medical History Atherosclerotic heart disease of [place] coronary artery without angina pectoris Chronic diastolic [...] % (Auto) 57.4 Lymph % (Auto) 27.9 Millard % (Auto) 10.8 H Eos % (Auto) [...] and white matter changes. Electronically Signed: Ban N. Austin, MD at 15:37 EDT , ADDENDUM: 12/27/22 [...] troponin is normal at 10. Neurology from [facility] felt that the patient should be admitted [...] Provider] - Disposition Disposition: Acute Care [facility] What to do if you have Problems For any increased pain, shortness of breath, bleeding, nausea or vomiting, chestpain, or any unexpected problems, contact your Primary Care Provider. Call [facility] ([phone]) or report to the closest Emergency Room. Call 911 if necessary. 12/27/222230 <Electronically signed by Lali Pimentel MD> Cosigner Signature (if applicable): CC: Dr. Rosemary Doran MD ~ Signed [facility] Work Phone: 1(620) 495-534809-29-2023 History and physical note Author Lynn Horn [facility] December 27, 2022 6:54pm Note Date/Time December 27, 2022 5:12pm [facility] Medical Records Department [address] [place] [address] H&P Exam - Hospitalist 12/27/22 1709 MR#: [id number] Acct: [id number] Name: EZRA GONZALEZ Rep #:[id number] : 1935 87 From: Lynn Horn DO PCP: Dr. Rosemary Doran MD Status:ADM MARIELOS Location: [place] [address] HPI - General General Date of Admission: 12/27/22 Date of Service: 12/27/22 Chief Complaint: Speech abnormalities HPI Narrative EZRA GONZALEZ, is a 87 F who presented to the emergency department at [facility] on 12/27/2022 with speech abnormalities that started after 1 PM this afternoon. She resides at [facility]. She was last known well at [...] will add aspirin 81 mg as well ON LICENSE OF [facility] Medical History Atherosclerotic heart disease of [place] coronary artery without angina pectoris Chronic diastolic [...] % (Auto) 57.4, Lymph % (Auto) 27.9, Millard % (Auto) 10.8 H, Eos % (Auto) [...] on admission Charges/Coding Visit Charges Inpatient E&M: 77791 Init Hosp L2 12/27/22 1108 <Electronically signed by Lynn Horn DO> Cosigner Signature (if applicable): CC: Dr. Rosemary Doran MD; Dr. Lynn Horn DO~ Signed [facility] Work Phone: 1(355) 379-121409-14-2023 Discharge summary Author María Crane [facility] December 12, 2022 1:40pm Note Date/Time December 12, 2022 1:40pm [facility] Physical Therapy [facility] [address] [place] [address] [address] [place] [address] / REHABILITATION SERVICES DISCHARGE SUMMARY MR#: [id number] Acct: [id number] Name: EZRA GONZALEZ Rep #: [id number] : 1935 87 From: María Cooley Referring Dr.: Dr. Anant Juarez MD Status: REG R Insurance: [facility] [id number] SELF PAY INSURANCE Patient Information Patient Information: [...] Dr. Anant Juarez MD ~ ELR Signed [facility] Work Phone: [phone]) 266-439511-17-2007 Evaluation note* Diagnosis Onset Date Resolution Status Chronic diastolic (congestive) heart failure chronic Essential (primary) hypertension chronic Paroxysmal atrial fibrillation chronic History of coronary artery stent placement February 142006 resolved [facility] Work Phone: [phone]) 445-528011-17-2007 Evaluation note* Diagnosis Onset Date Resolution Status Chronic diastolic (congestive) heart failure chronic Essential (primary) hypertension chronic History of coronary artery stent placement February 142006 resolved Brain TIA resolved Carotid stenosis acute Difficulty with speech acute Dysarthria resolved Polyneuropathy acute [facility] Work Phone: 1(107) 147-950111-17-2007 Evaluation note* Diagnosis Onset Date Resolution Status Chronic diastolic (congestive) heart failure chronic Essential (primary) hypertension chronic History of coronary artery stent placement February 142006 resolved Brain TIA resolved Carotid stenosis acute Difficulty with speech acute Dysarthria resolved Abnormality of gait and mobility acute Carotid stenosis acute Dementia acute Polyneuropathy acute Transient ischemic attack re solved [facility] Work Phone: [phone]) 178-295011-17-2007 Evaluation note* Diagnosis Onset Date Resolution Status Longstanding persistent atrial fibrillation acute Essential (primary) hypertension chronic History of coronary artery stent placement February 142006 resolved Dementia acute Epilepsy acute Polyneuropathy acute Transient ischemic attack re solved [facility] Work Phone: Consult note Author Chucky Carney [facility] June 16, 2023 10:15am Note Date/Time June 16, 2023 10: 14am [facility] Medical Records Department [address] [place] [address] Consultation - Orthopedics 06/16/23 1012 MR#: [id number] Acct: [id number] Name: EZRA GONZALEZ Rep #:[id number] : 1935 87 From: Chucky Carney MD PCP: Dr. Rosemary Doran MD Status:REG ER Location: ED HPI Consult Data Date of Consult: 06/16/23 HPI Narrative HPI Narrative: EZRA GONZALEZ, is a 87 F who presents with a right distal humerus fracture. Patient apparently is in skilled nursing there a fall. According to the ED physician Dr. Mack who called me today this is a closed neurovascularly intact injury. ON LICENSE OF [facility] Medical History (Updated 06/16/23 @ 10:13 by Chucky Carney MD) Atherosclerotic heart disease of [place] coronary artery without angina pectoris Chronic diastolic [...] % (Auto) 67.8, Lymph % (Auto) 23.0, Millard% (Auto) 7.0, Eos % (Auto) 1.3, Baso [...] applicable): CC: Dr. Rosemary Doran MD~ Signed [facility] Work Phone: Discharge summary Author Neri Mitchell [facility] November 14, 2022 11:57am Note Date/Time November 14, 2022 11 :10am [facility] Medical Records Department [address] [place] [address] Emergency Department Summary 11/14/22 MR#: [id number] Acct: [id number] Name: EZRA GONZALEZ Rep #:[id number] : 1935 87 From: Neri Mitchell MD [...] is on warfarin has history of TIAs. [facility] Medical History Atherosclerotic heart disease of [place] coronary artery without angina pectoris Chronic diastolic [...] % (Auto) 64.0 Lymph % (Auto) 24.9 Millard % (Auto) 7.8 Eos % (Auto) 2.4 [...] No evidence for large vessel occlusion the [place]. N.B. : The above Results were Read Back by Ban Avila MD to Neri Mitchell MD, and understanding confirmed on 11/14/2022 11:41:26 (ET). Electronically Signed: Ban Avila MD at 11:41 EDT , ADDENDUM: 11/14/22 1148 IMPRESSION: No evidence for significant stenosis or occlusion in the carotid or vertebral arteries of the neck. No evidence for large vessel occlusion the [place]. N.B. : The above [...] Fibrillation Management Discussion w/another healthcare provider: Hospitalist, Chemical Equipment Controller (Stroke neurology Dr. Tamez) and Radiologist (At 1121 for NCCT, negative for bleed) Stroke Documentation Questions Stroke Team Activated: Yes Critical Care Time Critical Care Time: Yes Critical care time (excluding procedures): 30-74 minutes (37 min), Including time spent:, Discussing w/Patient &/or Family/Nuclear Control Room Operator, Discussing w/Consultants, Arranging Admission or Transfer and Performing Direct Patient Care at Bedside Discharge Plan Dx/Rx/DC Orders Clinical Impression: Brain TIA, Paroxysmal atrial fibrillation, Subtherapeutic international normalized ratio (INR) Disposition Disposition: Acute Care [facility] What to do if you have Problems For any increased pain, shortness of breath, bleeding, nausea or vomiting, chestpain, or any unexpected problems, contact your Primary Care Provider. Call [employer] [facility] ([phone]) or report to the closest Emergency Room. Call 911 if necessary. 11/14/22 1157 <Electronically signed by Neri Mitchell MD> Cosigner Signature (if applicable): CC: Dr. Rosemary Doran MD ~ Signed [facility] Work Phone: Discharge summary Author Sae Carballo [facility] December 28, 2022 11:09am Note Date/Time December 28, 2022 11:08am [facility] Medical Records Department [address] [place] [address] Instructions for Home/Discharge Instructions 12/28/22 1107 MR#: [id number] Acct: [id number] Name: EZRA GONZALEZ Rep #:[id number] : 1935 87 From: Sae fleming MD [...] MD; Dr. Lynn Horn DO ~ Signed [facility] Work Phone: evaluation note* Diagnosis Onset Date Resolution Status Atherosclerotic heart diseas e of [place] coronary artery without angina pectoris chronic Chronic diastolic (congestive) heart failure chronic Essential (primary) hypertension chronic Hyperlipidemia chronic Paroxysmal atrial fibrillation [facility] Work Phone: evaluation note* Diagnosis Onset Date Resolution Status Abnormality of gait and mobility acute Carotid stenosis acute Dementia acute Polyneuropathy acute Transient ischemic attack re solved [facility] Work Phone: Evaluation note* Diagnosis Onset Date Resolution Status Abnormality of gait and mobility acute Carotid stenosis acute Dementia acute Polyneuropathy acute Transient ischemic attack re solved Chronic diastolic (congestive) heart failure chronic Essential (primary) hypertension chronic Paroxysmal atrial fibrillation chronic History of coronary artery stent placement February 142006 resolved [facility] Work Phone: Evaluation note* Diagnosis [...] normalized ratio (INR) acute Paroxysmal atrial fibrillation [facility] Work Phone: evaluation note* Diagnosis Onset Date Resolution Status Abnormality of gait and mobility acute Carotid stenosis acute Dementia acute Polyneuropathy acute Transient ischemic attack re solved Chronic diastolic (congestive) heart failure chronic Essential (primary) hypertension chronic History of coronary artery stent placement February 142006 resolved Brain TIA resolved Carotid stenosis acute [facility] Work Phone: Evaluation note* Diagnosis Onset Date Resolution Status Abnormality of gait and mobility acute Carotid stenosis acute Dementia acute Polyneuropathy acute Transient ischemic attack re solved Chronic diastolic (congestive) heart failure chronic Essential (primary) hypertension chronic History of coronary artery stent placement February 142006 resolved Brain TIA resolved Carotid stenosis acute Difficulty with speech acute Dysarthria acute [facility] Work Phone: Evaluation note* Diagnosis Onset Date Resolution Status Brain TIA resolved Carotid stenosis acute Difficulty with speech acute Dysarthria resolved Abnormality of gait and mobility acute Carotid stenosis acute Dementia acute Polyneuropathy acute Transient ischemic attack re solved [facility] Work Phone: Evaluation note* Diagnosis Onset Date Resolution Status Dementia acute Epilepsy acute Polyneuropathy acute Transient ischemic attack re solved [facility] Work Phone: Evaluation note* Diagnosis Onset Date Resolution Status Dementia acute Epilepsy acute Polyneuropathy acute Transient ischemic attack re solved Longstanding persistent atrial fibrillation acute Essential (primary) hypertension chronic History of coronary artery stent placement February 142006 resolved Dementia acute Epilepsy acute Polyneuropathy acute Transient ischemic attack re solved [facility] Work Phone: Evaluation note* Diagnosis Closed displaced fracture of medial condyle of right humerus, initial encounter- Primary Closed displaced fracture of medial condyle of right humerus, initial encounter [facility] Additional Instructions Your work-up today does not show signs of heart attack or heart damage. Your Coumadin level/INR is therapeutic at 2.7. Please follow-up with your family doctor for repeat evaluation or return to the ER if you have any further concernsWMadison Health Work Phone: Hospital Discharge instructionsAmbulatory Orders* Physical Therapy Referral Location: None Selected [facility] Work Phone: Hospital Discharge instructions Additional Instructions Will need to follow-up Lamictal level since it is a send out. Recommend follow- up appointment with her neurologist Dr. JuarezWMadison Health Work Phone: Reason for referral (narrative)No reason for referral information availableWMadison Health Work Phone: Summary Purpose Family History No Family History Records Found Relationship Condition Age at Onset Recorded Date/T maggy father Coronary artery disease Unknown brother Coronary artery disease Unknown Advance Directives No Advanced Directives Records Found Advance Directive Response Recorded Date/ Time Advance Directives Yes November 10:13am Living Will No February 11 12:11am Power of Boiler House Inspector No February 11, 2022 12:11am Advance Directive Response Recorded Date/ Time Advance Directives Yes November 11:13am Living Will No February 11 1:11am Power of Boiler House Inspector No February 11, 2022 1:11am Advance Directive Response Recorded Date/ Time Advance Directives Yes November 11:13am Living Will No September 08, 2022 3:33pm Power of Boiler House Inspector No September 08 3:33pm Advance Directive Response Recorded Date/ Time Advance Directives Yes November 11:13am Living Will No November 14 11:07am Power of Boiler House Inspector No November 14 023 11:07am Advance Directive Response Recorded Date/ Time Name of Medical Power of Boiler House Inspector Ty Campoverdei wendy November 18, 2022 7:55am Advance Directives Yes November 11:13am Living Will Yes November 18 7:55am Power of Boiler House Inspector Yes November 18, 023 7:55am Name of Medical Power of Boiler House Inspector Wilfredo [place] November 14, 2022 1:26pm Advance Directive Response Recorded Date/ Time Name of Medical Power of Boiler House Inspector Ty Campoverdei l November 18, 2022 7:55am Name of Medical Power of Boiler House Inspector Wilfredo Nemastil November 14, 2022 1:26pm Advance Directives Yes November 11:13am Living Will No December 27, 2022 7:16pm Power of Boiler House Inspector No November 7:16pm Advance Directive Response Recorded Date/ Time Name of Medical Power of Boiler House Inspector Ty Campoverdei l November 18, 2022 6:55am Name of Medical Power of Boiler House Inspector Wilfredo Nemastil November 14, 2022 12:26pm Advance Directives Yes November 10:13am Living Will No December 27, 2022 6:16pm Power of Boiler House Inspector No November 6:16pm Advance Directive Response Recorded Date/ Time Advance Directives Yes November 10:13am Living Will No December 27, 2022 6:16pm Power of Boiler House Inspector No November 6:16pm Advance Directive Response Recorded Date/ Time Name of Medical Power of Boiler House Inspector SON--JACK June 16, 2023 8:32am Advance Directives Yes November 11:13am Living Will Yes June 16, 2023 8:32am Power of Boiler House Inspector Yes June 15 8:32am Latest Code Status on File Code Status Date Activated Date Inactivated Comments Full Code 06/16/2023 4:39 PM 06/20/2023 7:46 PM Advance Directive Response Recorded Date/ Time Living Will Yes June 16, 2023 7:32am Power of Boiler House Inspector Yes June 15 7:32am Advance Directives Yes November 10:13am Advance Directive Response Recorded Date/ Time Living Will Yes June 16, 2023 8:32am Do you have a Healthcare Power of Boiler House Inspector? Yes June 16, 2023 8:32am Advance Directives Yes November 11:13am Advance Directive Response Recorded Date/ Time Living Will No December 27, 2022 7:16pm Do you have a Healthcare Power of Boiler House Inspector? No December 27, 2022 7:16pm Living Will Yes June 16, 2023 8:32am Do you have a Healthcare Power of Boiler House Inspector? Yes June 16, 2023 8:32am Advance Directives Yes November 11:13am Advance Directive Response Recorded Date/ Time Living Will No December 27, 2022 7:16pm Do you have a Healthcare Power of Boiler House Inspector? No December 27, 2022 7:16pm Do you have a Healthcare Power of Boiler House Inspector? Yes September 08, 2024 12:26pm Advance Directives Yes November 11:13am Advance Directive Response Recorded Date/ Time Living Will No December 27, 2022 7:16pm Do you have a Healthcare Power of Boiler House Inspector? No December 27, 2022 7:16pm Do you have a Healthcare Power of Boiler House Inspector? Yes September 10, 2024 5:17pm Do you have a Healthcare Power of Boiler House Inspector? 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 EORDER FOR LABS FROM DR JUAREZ Consult LEFT ICA STENOSIS Reason for Visit Abnormality of gait and mobility Carotid stenosis Dementia Polyneuropathy Transient ischemic attack Chief Complaint TIA SYMPTOMS, HX OF DM, AFIB 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 EORDER FOR LABS FROM DR JUAREZ Consult LEFT ICA STENOSIS 6 M FU W CHAIR LIFT OPERATOR per CHAIR LIFT OPERATOR GAIT,POLYNEUROPATHY,LUMBAR COMPRESSION FX/RX HERE GAIT DISORDER Reason for Visit Abnormality of gait and mobility Carotid stenosis Dementia Polyneuropathy Transient ischemic attack Chronic diastolic (congestive) heart failure Essential (primary) hypertension Paroxysmal atrial fibrillation History of coronary artery stent placement Chief Complaint TIA SYMPTOMS, HX OF DM, AFIB confusion [facility] (current) use 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 EORDER FOR LABS FROM DR JUAREZ Consult LEFT ICA STENOSIS 6 M FU W CHAIR LIFT OPERATOR per CHAIR LIFT OPERATOR GAIT,POLYNEUROPATHY,LUMBAR COMPRESSION FX/RX HERE GAIT DISORDER TIA Reason for Visit Abnormality of gait and mobility Carotid stenosis Dementia Polyneuropathy Transient ischemic attack Chronic diastolic (congestive) heart failure Essential (primary) hypertension Paroxysmal atrial fibrillation History of coronary artery stent placement Brain TIA Subtherapeutic international normalized ratio (INR) Paroxysmal atrial fibrillation Chief Complaint TIA SYMPTOMS, HX OF DM, AFIB confusion [facility] (current) use 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 EORDER FOR LABS FROM DR JUAREZ Consult LEFT ICA STENOSIS 6 M FU W CHAIR LIFT OPERATOR per CHAIR LIFT OPERATOR GAIT,POLYNEUROPATHY,LUMBAR COMPRESSION FX/RX HERE GAIT DISORDER [...] TIA SYMPTOMS, HX OF DM, AFIB 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 EORDER FOR LABS FROM DR JUAREZ Consult LEFT ICA STENOSIS 6 M FU W CHAIR LIFT OPERATOR per CHAIR LIFT OPERATOR GAIT,POLYNEUROPATHY,LUMBAR COMPRESSION FX/RX HERE GAIT DISORDER TIA TIA (cardiology) TIA (cardiology) tia RESIDENTIAL LAB WORK CONSULT-CAROTID STENOSIS Reason for Visit Abnormality of gait and mobility Carotid stenosis Dementia Polyneuropathy Transient ischemic attack Chronic diastolic (congestive) heart failure Essential (primary) hypertension History of coronary artery stent placement Brain TIA Carotid stenosis Chief Complaint TIA SYMPTOMS, HX OF DM, AFIB 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 EORDER FOR LABS FROM DR JUAREZ Consult LEFT ICA STENOSIS 6 M FU W CHAIR LIFT OPERATOR per CHAIR LIFT OPERATOR GAIT,POLYNEUROPATHY,LUMBAR COMPRESSION FX/RX HERE GAIT DISORDER TIA TIA (cardiology) TIA (cardiology) tia RESIDENTIAL LAB WORK CONSULT-CAROTID STENOSIS LABWORK RESIDENTIAL LABWORK Reason for Visit Abnormality of gait and mobility Carotid stenosis Dementia Polyneuropathy Transient ischemic attack Chronic diastolic (congestive) heart failure Essential (primary) hypertension History of coronary artery stent placement Brain TIA Carotid stenosis Chief Complaint TIA SYMPTOMS, HX OF DM, AFIB 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 EORDER FOR LABS FROM DR JUAREZ Consult LEFT ICA STENOSIS 6 M FU W CHAIR LIFT OPERATOR per CHAIR LIFT OPERATOR GAIT,POLYNEUROPATHY,LUMBAR COMPRESSION FX/RX HERE GAIT DISORDER TIA TIA (cardiology) TIA (cardiology) tia RESIDENTIAL LAB WORK CONSULT-CAROTID STENOSIS LABWORK RESIDENTIAL LABWORK DYARTHRIA DYARTHRIA Reason for Visit Abnormality of gait and mobility Carotid stenosis Dementia Polyneuropathy Transient ischemic attack Chronic diastolic (congestive) heart failure Essential (primary) hypertension History of coronary artery stent placement Brain TIA Carotid stenosis Difficulty with speech Dysarthria Chief Complaint LEFT ICA STENOSIS 6 M FU W CHAIR LIFT OPERATOR per CHAIR LIFT OPERATOR GAIT,POLYNEUROPATHY,LUMBAR COMPRESSION FX/RX HERE GAIT DISORDER TIA TIA (cardiology) TIA (cardiology) tia RESIDENTIAL LAB WORK CONSULT-CAROTID STENOSIS LABWORK RESIDENTIAL LABWORK DYARTHRIA DYARTHRIA DYARTHRIA RESIDENTIAL LABWORK 4 month f/u EORDER Reason for Visit Chronic diastolic (c ongestive) heart failure Essential (primary) hypertension History of coronary artery stent placement Brain TIA Carotid stenosis Difficulty with speech Dysarthria Polyneuropathy Chief Complaint 6 M FU W CHAIR LIFT OPERATOR per CHAIR LIFT OPERATOR GAIT,POLYNEUROPATHY,LUMBAR COMPRESSION FX/RX HERE GAIT DISORDER TIA TIA (cardiology) TIA (cardiology) tia RESIDENTIAL LAB WORK CONSULT-CAROTID STENOSIS LABWORK RESIDENTIAL LABWORK DYARTHRIA DYARTHRIA DYARTHRIA RESIDENTIAL LABWORK 4 month f/u EORDER Reason for Visit Chronic diastolic (c ongestive) heart failure Essential (primary) hypertension History of coronary artery stent placement Brain TIA Carotid stenosis Difficulty with speech Dysarthria Abnormality of gait and mobility Carotid stenosis Dementia Polyneuropathy Transient ischemic attack Chief Complaint TIA TIA (cardiology) TIA (cardiology) tia RESIDENTIAL LAB WORK CONSULT-CAROTID STENOSIS LABWORK RESIDENTIAL LABWORK DYARTHRIA DYARTHRIA DYARTHRIA RESIDENTIAL LABWORK 4 month f/u EORDER RESIDENTIAL LABWORK Reason for Visit Brain TIA Carotid stenosis Difficulty with speech Dysarthria Abnormality of gait and mobility Carotid stenosis Dementia Polyneuropathy Transient ischemic attack Chief Complaint RESIDENTIAL LABWORK 4 month f/u EORDER RESIDENTIAL LABWORK RESIDENTIAL LAB WORK RESIDENTIAL LABWORK Reason for Visit Dementia Epilepsy Polyneuropathy Transient ischemic attack Chief Complaint 4 month f/u EORDER RESIDENTIAL LABWORK RESIDENTIAL LAB WORK RESIDENTIAL LAB WORK RESIDENTIAL LABWORK 7 m fu 4 month f/u Reason for Visit Dementia Epilepsy Polyneuropathy Transient ischemic attack Longstanding persistent atrial fibrillation Essential (primary) hypertension History of coronary artery stent placement Dementia Epilepsy Polyneuropathy Transient ischemic attack Chief Complaint RESIDENTIAL LABWORK RESIDENTIAL LAB WORK RESIDENTIAL LAB WORK RESIDENTIAL LABWORK LABWORK 7 m fu 4 month f/u LABWORK Reason for Visit Longstanding persist ent atrial fibrillation Essential (primary) hypertension History of coronary artery stent placement Dementia Epilepsy Polyneuropathy Transient ischemic attack Chief Complaint RESIDENTIAL LABWORK RESIDENTIAL LAB WORK RESIDENTIAL LAB WORK RESIDENTIAL LABWORK LABWORK 7 m fu 4 month f/u LABWORK FALL [place]ALL Reason for Visit Longstanding persist ent atrial fibrillation Essential (primary) hypertension History of coronary artery stent placement Dementia Epilepsy Polyneuropathy Transient ischemic attack Chief Complaint RESIDENTIAL LAB WOR K RESIDENTIAL LAB WORK RESIDENTIAL LABWORK LABWORK 7 m fu 4 month f/u LABWORK [place] LABWORK Reason for Visit Longstanding persist ent atrial fibrillation Essential (primary) hypertension History of coronary artery stent placement Dementia Epilepsy Polyneuropathy Transient ischemic attack Chief Complaint Admit Date RESIDENTIAL LAB WORK February 05, 2024 5:00am RESIDENTIAL LAB WORK March 04, 2024 5:00am RESIDENTIAL LAB WORK March 08, 2024 5:00am RESIDENTIAL LAB WORK March 10 4:00am LABWORK March 17, 2024 5:00am LABWORK March 19, 2024 5:00am LABWORK March 25, 2024 5:00am RESIDENTIAL LAB WORK March 26 5:00am RESIDENTIAL LAB WORK March 29 5:00am RESIDENTIAL LAB WORK April 05, 2024 5:00am RESIDENTIAL LAB WORK April 06, 2024 5:00am LABWORK April 09, 2024 5 :00am RESIDENTIAL LAB WORK April 14, 2024 4:00am RESIDENTIAL LAB WORK April 28, 2024 5:00am LABWORK May 05, 2024 5 :00am 8 mo fu May 10, 2024 2:34pm RESIDENTIAL LAB WORK May 19 5:00am Reason for Visit Admit Date Dementia May 10, 2024 2:34pm Epilepsy May 10, 2024 2:34pm Transient ischemic attack May 10, 2024 2:34pm Chief Complaint Admit Date RESIDENTIAL LAB WORK March 04, 2024 5:00am RESIDENTIAL LAB WORK March 08, 2024 5:00am RESIDENTIAL LAB WORK March 10 4:00am LABWORK March 17, 2024 5:00am LABWORK March 19, 2024 5:00am LABWORK March 25, 2024 5:00am RESIDENTIAL LAB WORK March 26 5:00am RESIDENTIAL LAB WORK March 29 5:00am RESIDENTIAL LAB WORK April 05, 2024 5:00am RESIDENTIAL LAB WORK April 06, 2024 5:00am LABWORK April 09, 2024 5 :00am RESIDENTIAL LAB WORK April 14, 2024 4:00am RESIDENTIAL LAB WORK April 28, 2024 5:00am LABWORK May 05, 2024 5 :00am 8 mo fu May 10, 2024 2:34pm RESIDENTIAL LAB WORK May 12 5:00am RESIDENTIAL LAB WORK May 19 5:00am RESIDENTIAL LAB WORK June 09, 2024 5 :00am Chief Complaint Admit Date RESIDENTIAL LAB WORK March 10 4:00am LABWORK March 17, 2024 5:00am LABWORK March 19, 2024 5:00am LABWORK March 25, 2024 5:00am RESIDENTIAL LAB WORK March 26 5:00am RESIDENTIAL LAB WORK March 29 5:00am RESIDENTIAL LAB WORK April 05, 2024 5:00am RESIDENTIAL LAB WORK April 06, 2024 5:00am LABWORK April 09, 2024 5 :00am RESIDENTIAL LAB WORK April 14, 2024 4:00am RESIDENTIAL LAB WORK April 28, 2024 5:00am LABWORK May 05, 2024 5 :00am 8 mo fu May 10, 2024 2:34pm RESIDENTIAL LAB WORK May 12 5:00am RESIDENTIAL LAB WORK May 19 5:00am RESIDENTIAL LAB WORK June 09, 2024 5 :00am RESIDENTIAL LAB WORK June 16, 2024 5 :00am [...] Admit Date LABWORK March 25, 2024 5:00am RESIDENTIAL LAB WORK March 26 5:00am RESIDENTIAL LAB WORK March 29 5:00am RESIDENTIAL LAB WORK April 05, 2024 5:00am RESIDENTIAL LAB WORK April 06, 2024 5:00am LABWORK April 09, 2024 5 :00am RESIDENTIAL LAB WORK April 14, 2024 4:00am RESIDENTIAL LAB WORK April 28, 2024 5:00am LABWORK May 05, 2024 5 :00am 8 mo fu May 10, 2024 2:34pm RESIDENTIAL LAB WORK May 12 5:00am RESIDENTIAL LAB WORK May 19 5:00am RESIDENTIAL LAB WORK June 09, 2024 5 :00am RESIDENTIAL LAB WORK June 16, 2024 5 :00am 1 Y FU July 01, 2024 10:3 5am RESIDENTIAL LAB WORK July 19, 2024 4 :00am Chief Complaint Admit Date RESIDENTIAL LAB WORK May 12 5:00am RESIDENTIAL LAB WORK May 19 5:00am RESIDENTIAL LAB WORK June 09, 2024 5 :00am RESIDENTIAL LAB WORK June 16, 2024 5 :00am 1 Y FU July 01, 2024 10:3 5am RESIDENTIAL LAB WORK July 19, 2024 4 :00am RESIDENTIAL LAB WORK August 18, 2024 5:0 0am SEIZURE September 08, 2024 12:2 0pm Reason for Visit Admit Date Longstanding persistent atrial fibrillat ion July 01, 2024 10:35am Essential (primary) hypertension July 012024 10:35am History of coronary artery stent placeme nt July 01, 2024 10:35am Chief Complaint Admit Date RESIDENTIAL LAB WORK May 19 5:00am RESIDENTIAL LAB WORK June 09, 2024 5 :00am RESIDENTIAL LAB WORK June 16, 2024 5 :00am 1 Y FU July 01, 2024 10:3 5am RESIDENTIAL LAB WORK July 19, 2024 4 :00am RESIDENTIAL LAB WORK August 18, 2024 5:0 0am SEIZURE September 08, 2024 12:2 0pm Chief Complaint Admit Date RESIDENTIAL LAB WORK May 19 5:00am RESIDENTIAL LAB WORK June 09, 2024 5 :00am RESIDENTIAL LAB WORK June 16, 2024 5 :00am 1 Y FU July 01, 2024 10:3 5am RESIDENTIAL LAB WORK July 19, 2024 4 :00am RESIDENTIAL LAB WORK August 18, 2024 5:0 0am SEIZURE September 08, 2024 12:2 0pm STROKE VS SEIZURE September 10, 2024 4:03 pm Chief Complaint Admit Date RESIDENTIAL LAB WORK May 19 5:00am RESIDENTIAL LAB WORK June 09, 2024 5 :00am RESIDENTIAL LAB WORK June 16, 2024 5 :00am 1 Y FU July 01, 2024 10:3 5am RESIDENTIAL LAB WORK July 19, 2024 4 :00am RESIDENTIAL LAB WORK August 18, 2024 5:0 0am [...] 2024 4 :03pm Chief Complaint Admit Date RESIDENTIAL LAB WORK May 19 5:00am RESIDENTIAL LAB WORK June 09, 2024 5 :00am RESIDENTIAL LAB WORK June 16, 2024 5 :00am 1 Y FU July 01, 2024 10:3 5am RESIDENTIAL LAB WORK July 19, 2024 4 :00am RESIDENTIAL LAB WORK August 18, 2024 5:0 0am SEIZURE September 08, 2024 12:2 0pm STROKE VS SEIZURE September 10, 2024 4:03 pm STROKE VS SEIZURE September 11, 2024 12:1 4pm 2 SEIZURES/ IN [facility] September 13, 2024 2:04 pm EORDERS September [...] section and content) DATE CREATED AUTHOR 02/04/2018 [facility] DATE CREATED AUTHOR AUTHOR'S ORGANIZ ATION 11/12/2019 [facility] DATE CREATED AUTHOR AUTHOR'S ORGANIZ ATION 06/26/2023 [facility] DATE CREATED AUTHOR AUTHOR'S ORGANIZ ATION 09/18/2024 [facility] Source Comments (unrecognize d section and content) In the event this informatio n is protected by the Federal Confidentiality of Alcohol and Drug Abuse Patient Records regulations: The Federal rules restrict any use of the information to criminally investigate or prosecute any alcohol or drug abuse patient.[facility] the event this information is protected by the Federal Confidentiality of Alcohol and Drug Abuse Patient Records regulations: The Federal rules restrict any use of the information to criminally investigate or prosecute any alcohol or drug abuse patient.[facility] the event this information is protected by the Federal Confidentiality of Alcohol and Drug Abuse Patient Records regulations: The Federal rules restrict any use of the information to criminally investigate or prosecute any alcohol or drug abuse patient.[facility] the event this information is protected by the Federal Confidentiality of Alcohol and Drug Abuse Patient Records regulations: The Federal rules restrict any use of the information to criminally investigate or prosecute any alcohol or drug abuse patient.[facility] the event this information is protected by the Federal Confidentiality of Alcohol and Drug Abuse Patient Records regulations: The Federal rules restrict any use of the information to criminally investigate or prosecute any alcohol or drug abuse patient.[facility] Reason for Visit (unrecogniz ed section and content) Reason Onset Date Comments Refill Request Refill Request 11/11/2019 Reason Comments Arm Injury Pt arrives via [facility] with complaints of right elbow fracture. Patient was sent here for ortho consult. No pain on arrival. Arrives with right arm splinted. Specialty Diagnoses / Procedures Referred By Ana t Referred To Contact Diagnoses Closed displaced fracture of medial condyle of right humerus, initial encounter Procedures .. Jayshree Cortez MD [address] [place] [address] [facility] [address] [place] [id number] Referral ID Status Reason Start Date Expiration Date Visits Re quested Visits Authorized [id number] 1 1 Telephone Encounter - [facility] [place] - 10/12/2019 7:49 AM EDT Miscellaneous Notes (unrecog nized section and content) Pharmacy faxed requesting the following refill. Pending Prescriptions Disp Refills FUROSEMIDE 20 MG TABLET 90 tablet 0 Sig: TAKE ONE TABLET BY MOUTH EVERY DAY SHAHEEN: Yes Last refill: 01/21/2019 Patient last appointment: 09/22/2019 Patient next appointment: Visit date not found Patient Phone numbers: [phone] (home) Request is for script(s) to be [...] August 18, 2024 End: August 18, 2024 eCsar MARTINEZ MD Attending Provider Active St art: [...] HICKS MD Other Provider Active Start: 2024 Cara [...] Active Member Role Status Dates Dr. Alexandra aHgen MD Primary Care Provider Active Start: March [...] Status: Inactive Member Role Status Dates Dr. oRsemary Doran MD Primary Care Provider Active Dr. [...] Provider, Other Provider Ac tive Dr. Sae Carblalo MD Attending Provider Active Team Status: Active Member Role Status Dates Dr. Rosemary Doran MD Primary Care Provider Active Team Status: Inactive Member Role Status Dates Dr. Rosemary Doran MD Primary Care Provider Active Dr. Reese Shankar DO Attending Provider, Emergency Pr ovider Active Team Status: Inactive Member Role Status Dates Dr. Rosemary Doran MD Primary Care Provider Active Suze Prebish VISUAL LEAD, VISUAL LEAD-C Attending Provider, Referring Pr ovider Active Team [...] Rosemary Doran MD Primary Care Provider Active Research Aide Relationship Specialty Start Date End Date Alexandra Hagen [address] [id number] PCP - General Family Medicine 06/20/23 Team [...] Other Provider Active Start: J une 2024 End: September 11, 2024 Dr. Dmitriy Diop MD Other Provider Active Sta rt: September 10, 2024 End: September 11, 2024 Meagan Edmondson MD Other Provider Active Start: September 10, 2024 End: September 11, 2024 MAMADOU HICKS MD Other Provider Active Start: J une 2024 End: September 11, 2024 Cara Batista [...] Member Role Status Dates Dr. Chucky Ochoa , DO Primary Care Provider Active Start: September 11, 2024 Dr. Teri Garcia , Emergency Provider Active Start: September 11, 2024 Dr. Matthew Oro , Admit Provider Active Start: September 11, 2024 Dr. Matthew Oro , Attending Provider Active Start: September 11, 2024 [...] Vicente RN)0837 (New Bag - Provider: Leona Sidhu RN)0907 (Stopped - Provider: Leona Sidhu RN) docusate sodium (Colace) capsule 100 mg 100 mg, Oral, 2 times daily, First dose on Fri06/18/23 at 2100, Do not crush or break. 1512 (MAY Hold - Provider: Automatic Transfer Provider - Reason: Patient not available)2025 (MAY Unhold - Provider: Automatic Transfer Provider)2126 (Given - Provider: Kirsty Vicente RN) 08 (Given - Provider: Leona Sidhu RN)2147 (Given [...] Comment: [phone] (Not Given - Provider: Juanjo Villlaba RN - Reason: Other)1700 (Canceled Entry - [...] 5 Units Above 400 6 Units 151 (MAR Hold - Provider: Automatic Transfer Provider - Reason: Patient not available)2025 (MAR Unhold - Provider: Automatic Transfer Provider)2131 (Given - Provider: Kirsty Vicente RN - Comment: bs 189) 2146 (Given - Provider: Kirsty Vicente RN) lamoTRIgine (LaMICtal) tablet 50 mg 50 mg, Oral, 2 times daily, First dose on Fri06/17/23 at 2145 0841 (Given - Provider: Odessa Wayne RN)151 (MAY Hold - Provider: Automatic Transfer Provider - Reason: Patient not available)2025 (MAY Unhold - Provider: Automatic Transfer Provider)2126 (Given - Provider: Kirsty Vicente RN) 0837 (Given - Provider: Leona Sidhu, JAYME)2147 (Given - Provider: Kirsty Vicente RN) 09 (Given - Provider: Juanjo Villalba, JAYME) metoprolol tartrate (Lopressor) tablet 25 mg 25 mg, Oral, 2 times daily, First dose on Fri06/17/23 at 2145 0840 (Given - Provider: Odessa Wayne RN)151 (MAY Hold - Provider: Automatic Transfer Provider [...] Provider: Yvan Sepulveda RN - Reason: NPO)1511 (MAY Hold - Provider: Automatic Transfer Provider - Reason: Patient not available)2025 (MAY Unhold - Provider: Automatic Transfer Provider) 0540 [...] 1 dose 1738 (Given - Provider: Leona Sidhu RN) Continuous Medication Order 06/18/2023 06/19/2023 06/20/2023 [...] from all sources in 24 hours. 1511 ([facility] Hold - Provider: Automatic Transfer Provider - Reason: Patient not available)2025 ([facility] Unhold - Provider: Automatic Transfer Provider) acetaminophen (Tylenol) tablet 650 mg(Linked Group 2) 650 mg, Oral, Every 6 hours PRN, mild pain (1-3), fever, For temp greater than 100.4 F (38 C), Starting on Fri06/16/23 at 1639, Maximum dose of acetaminophen is 4000 mg from all sources in 24 hours. 1511 ([facility] Hold - Provider: Automatic Transfer Provider - Reason: Patient not available)2025 ([facility] Unhold - Provider: Automatic Transfer Provider) dextrose 5 % infusion 100 mL/hr, IntraVENous, PRN, Blood sugar less than 70mg/dL, Starting on Fri06/17/23 at 2131, Start infusion following administration of dextrose 50% or glucagon. 1511 ([facility] Hold - Provider: Automatic Transfer Provider - Reason: Patient not available)2025 ([facility] Unhold - Provider: Automatic Transfer [...] Glucostabilizer, dose as instructed per system. 1511 ([facility] Hold - Provider: Automatic Transfer Provider - Reason: Patient not available)2025 ([facility] Unhold - Provider: Automatic Transfer [...] 15 minutes x2 and notify provider. 1511 ([facility] Hold - Provider: Automatic Transfer Provider - Reason: Patient not available)2025 ([facility] Unhold - Provider: Automatic Transfer [...] 15 minutes x2 and notify provider. 1511 ([facility] Hold - Provider: Automatic Transfer Provider - Reason: Patient not available)2025 ([facility] [facility] Provider: Automatic Transfer [...] of each other unless specifically ordered. 1511 ([facility] Hold - Provider: Automatic Transfer Provider - Reason: Patient not available)2025 ([facility] - Provider: Automatic Transfer Provider) naloxone (Narcan) injection 0.4 mg 0.4 mg, IntraVENous, Every 5 min PRN, opioid reversal, respiratory depression, Starting on Fri06/16/23 at 1647, +++ For RR <10, pinpoint pupils, over sedation for opioid reversal - MUST notify home service demonstrator provider immediately after first dose, may give IM or SQ if no IV access +++ 1511 ([facility] Hold - Provider: Automatic Transfer Provider - Reason: Patient not available)2025 ([facility] - Provider: Automatic Transfer Provider) ondansetron (Zofran) injection 4 mg(Linked Group 3) 4 mg, IntraVENous, Every 6 hours PRN, nausea, vomiting, Starting on Fri06/16/23 at 1639, 1st Line. Give IV if patient is unable to take orally. If inadequate response within 60 minutes, proceed to next-line agent or contact provider if no further options ordered. 1511 ([facility] Hold - Provider: Automatic Transfer Provider - Reason: Patient not available)2025 ([facility] - Provider: Automatic Transfer [...] blister pack until just before administering. 1511 ([facility] Hold - Provider: Automatic Transfer Provider - Reason: Patient not available)2025 ([facility] - Provider: Automatic Transfer Provider) oxyCODONE (Roxicodone) immediate release tablet 2.5 mg(Linked Group 4) 2.5 mg, Oral, Every 4 hours PRN, moderate pain (4-6), Starting on Fri06/16/23 at 1639 151 ([facility] Hold - Provider: Automatic Transfer Provider - Reason: Patient not available)2025 ([facility] - Provider: Automatic Transfer Provider) 0924 (See Alternative - Provider: Juanjo Villalba, RN) oxyCODONE (Roxicodone) immediate release tablet 5 mg(Linked Group 4) 5 mg, Oral, Every 4 hours PRN, severe pain (7-10), Starting on Fri06/16/23 at 1639 151 ([facility] Hold - Provider: Automatic Transfer Provider - Reason: Patient not available)2025 ([facility] - Provider: Automatic Transfer Provider) 0924 [...] 6 hours PRN, nausea, vomiting, Starting on 06/16/23 at 1639, 1st Line. Give IV if [...] BE BASED ON THE PRIMARY CLINICAL RECORDS. In [employer] [facility]. provides no warranty or guarantee of the accuracy or completeness of information in this document.
--- OUTSIDE RECORDS SUMMARY | 2024-09-22 03:47 | XMS RPT_ITS | CCD ---
Author Organization [facility] Care Team Providers Care Manager Music Name Role Phone LISHNEVSKI, ALEXIA Unavailable Unavailable [...] LISHNEVSKI, ALEXIA Unavailable Unavailable Villa Hebert Unavailable [phone] Patito Gonzalez Unavailable [phone] Nirmal Kemp Unavailable [phone] Mohan Álvarez Unavailable Bishop, Rickey Clive Unavailable [phone] Rosemary Doran Primary Care Provider Lishnevski, Alexia Primary Care Provider Zenaida Henderson Unavailable Dr. Rosemary Doran Primary Care Provider Dr. Rosemary Doran Referring Provider [facility]of [facility], [facility]-Adeel Arnett Attending Provider Dr. Rosemary Doran Primary [...] Cole MD Referring Provider Unavailable Dr. Alexandra Hagne MD Primary Care Provider Cesar Cole MD Attending Provider Unavailable Dr. Chucky Ochoa MD Attending Provider Unavail able Dr. Anoop Blackmon MD Referring Provider Dr. Anoop Blackmon MD Emergency Provider Dr. Chucky Ochoa MD Primary Care Provider Unav ailable Dr. Alexandra Hagen MD Primary Care Provider Dr. Chucky Ochoa DO Primary Care Provider Dr. Teri Garcia DO Emergency Provider Dr. Matthew Oor DO Admit Provider Dr. Matthew Oro DO [...] Provider Jerrica LENNON, Dr. Ny Referring Provider [phone] Chucky Whalen Primary Care Unavailable Anoop Blackmon [...] Ochoa JUAN, Chucky Attending Unavailable Douglas OLS, Eckerman Attending Unavailable Jolliff, Alexandra S Primary Care [...] Alexandra S Primary Care Unavailable Douglas OLS, Eckerman Attending Unavailable Jolliff, Alexandra S Primary Care Unavailable Ochoa OLS, Chucky Attending Unavailable Ochoa JUAN, Chucky Referring Unavailable Jolliff, Alexandra S Primary Care Unavailable Ochoa OLS, Chucky Attending Unavailable Allergies Allergy Classification Reported Allergen(s) Allergy Type Date of Onset Reaction(s) Facility (20 sources) atorvastatin; 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: [ATORVASTATIN] Drug Allergy 5 Other: See Comments [facility] Repository (20 sources) codeine; 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: [CODEINE] Drug Allergy 5 Unknown [facility] Repository (20 sources) Latex; 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: [LATEX] Propensity to adverse reactions (disorder) 5 Rash, Itching [facility] Repository (20 sources) meperidine; 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: [MEPERIDINE] Drug Allergy 5 GI Upset [facility] Repository (20 sources) rosuvastatin; 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: [ROSUVASTATIN] Drug Allergy 5 Other: See Comments [facility] Repository (20 sources) Amiodarone Drug Allergy 2 Hair falling out in gobs, hair loss [facility] (1 source) Amiodarone Drug Allergy [facility] Repository Medications Current Medications Medication Drug [...] release tablet 2.5 mg polyethylene glycol 3350 43198 mg powder for oral solution (4 sources) [...] 10:13am take 1 tablet by mouth once adtii y cholecalciferol (VITAMIN D3) 1,000 unit tab [...] sources) Long-term current use of anticoagulant; 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: [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] Onset: 11-27-2018 11-27-2018 Episodic Other aftercare (2 sources) 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, [address] Lamotrigine (Lamictal) Level on 09-16-2024 LAMOTRIGINE 1.7 ug/mL Low 2.0-20.0 [facility] Comment on above: Result Comment: Dete ction Limit = 1.0 Performed at: [facility] [address] [id number] Janitor Supervisor: Brandon Wells MD, Phone: [phone] Performed By: #### L 503.5510, L3310.0000, L3300.4400 ####[facility] [address] [place], [place], [address] Ammoniaon 09-13-2024 Ammonia (P) [Moles/Vol] 28.9 umol/L Normal [facility] Comment on above: Performed By: #### L 503.5510, L3310.0000, L3300.4400 ####[facility] [address] [place], [place], [address] Venous blood ammonia measure mentOrdered By: Anant Juarez on 09-13-2024 Ammonia (P) [Moles/Vol] 28.9 umol/L [address] [place] [address] Lamotrigine (Lamictal) Level on 09-12-2024 LAMOTRIGINE 1.2 ug/mL Low 2.0-20.0 [facility] Comment on above: Result Comment: Dete ction Limit = 1.0 Performed at: [facility] [address] [id number] Janitor Supervisor: Brandon Wells MD, Phone: [phone] Performed By: #### L 100.0100, L500.2500, L300.3900, L3300.4400 ####[facility] [address] [place], [address] Urine Cultureon 09-12-2024 URC Klebsiella pneumonia e sp pneum [place] Count 80,000-100,000 Klebsiella pneumoniae sp pneum: REACTION [...] TMP SMX Islt MELINDA <=20 S Normal [facility] Comment on above: Performed By: #### M 100.2200 ####[facility] [address] [place], [place], [id number] Anion gap in Serum or Plasma Ordered By: Matthew Oro on 09-11-2024 Anion gap [Moles/Vol] 12 mmol/L - [facility] BUN/creatinine ratioOrdered By: Matthew Oro on 09-11-2024 Urea nitrogen/Creatinine [Mass ratio] 30.4 mg/mg High [employer] [facility] Basic Metabolic Profile (BMP )on 09-11-2024 BUN/CRE 30.4 RATIO High [address] [place] [address] Comment on above: Order Comment: Comme nts: NPO at [place] prior to lipid panel Performed By: #### L 500.4100, L100.0500, L500.2500 #### [facility] [address] [place], [address] Calcium [Mass/Vol] 8.8 mg/dL Normal 7.6-11.0 [facility] Comment on above: Order Comment: Comme nts: NPO at [place] prior to lipid panel Performed By: #### L 500.4100, L100.0500, L500.2500 #### [facility] [address] [place], [address] Chloride [Moles/Vol] 105 mmol/L Normal 98-108 [facility] Comment on above: Order Comment: Comme nts: NPO at [place] prior to lipid panel Performed By: #### L 500.4100, L100.0500, L500.2500 #### [facility] [address] [place], [address] CO2 [Moles/Vol] 21.6 mmol/L Normal 21.0-32.0 [facility] Comment on above: Order Comment: Comme nts: NPO at [place] prior to lipid panel Performed By: #### L 500.4100, L100.0500, L500.2500 #### [facility] [address] [place], [address] Creatinine [Mass/Vol] 0.91 mg/dL Normal 0.70-1.20 [facility] Comment on above: Order Comment: Comme nts: NPO at [place] prior to lipid panel Performed By: #### L 500.4100, L100.0500, L500.2500 #### [facility] [address] [place], [address] ECRCL 41.34 ml/min Low 50-250 [facility] Comment on above: Order Comment: Comme nts: NPO at [place] prior to lipid panel Performed By: #### L 500.4100, L100.0500, L500.2500 #### [facility] [address] [place], [address] GAP 12 Normal 5-15 [facility] Comment on above: Order Comment: Comme nts: NPO at [place] prior to lipid panel Performed By: #### L 500.4100, L100.0500, L500.2500 #### [facility] [address] [place], [address] GFR/1.73 sq M.predicted among non-blacks MDRD (S/P/Bld) [Vol rate/Area] 61 mL/min/{1.73_m2} Normal >60 [facility] Comment on above: Order Comment: Comme nts: NPO at [place] prior to lipid panel Result Comment: mL/m in/1.73m2 CKD-EPI Creatinine Equation (2020) Performed By: #### L 500.4100, L100.0500, L500.2500 #### [facility] [address] [place], [address] Glucose [Mass/Vol] 118 mg/dL High 70-99 [facility] Comment on above: Order Comment: Comme nts: NPO at [place] prior to lipid panel Performed By: #### L 500.4100, L100.0500, L500.2500 #### [facility] [address] [place], [address] Potassium [Moles/Vol] 4.4 mmol/L Normal 3.3-5.1 [facility] Comment on above: Order Comment: Comme nts: NPO at [place] prior to lipid panel Performed By: #### L 500.4100, L100.0500, L500.2500 #### [facility] [address] [place], [address] Sodium [Moles/Vol] 139 mmol/L Normal 133-145 [facility] Comment on above: Order Comment: Comme nts: NPO at [place] prior to lipid panel Performed By: #### L 500.4100, L100.0500, L500.2500 #### [facility] [address] [place], [address] Urea nitrogen [Mass/Vol] 28 mg/dL High 4-19 [facility] Comment on above: Order Comment: Comme nts: NPO at [place] prior to lipid panel Performed By: #### L 500.4100, L100.0500, L500.2500 #### [facility] [address] [place], [address] CBC-Complete Blood Cnt No Di ffon 09-11-2024 Erythrocyte distribution width (RBC) [Ratio] 12.8 % Normal 11.6-14.6 [facility] Comment on above: Performed By: #### L 500.4100, L100.0500, L500.2500 #### [facility] [address] [place], [address] Hematocrit (Bld) [Volume fraction] 39.7 % Normal 37-47 [facility] Comment on above: Performed By: #### L 500.4100, L100.0500, L500.2500 #### [facility] [address] [place], [address] Hemoglobin (Bld) [Mass/Vol] 13.1 g/dL Normal 12.0-15.0 [facility] Comment on above: Performed By: #### L 500.4100, L100.0500, L500.2500 #### [facility] [address] [place], [address] MCH (RBC) [Entitic mass] 30.3 pg Normal 27.0-32.0 [facility] Comment on above: Performed By: #### L 500.4100, L100.0500, L500.2500 #### [facility] [address] [place], [address] MCHC (RBC) [Mass/Vol] 33.0 g/dL Normal 32-36 [facility] Comment on above: Performed By: #### L 500.4100, L100.0500, L500.2500 #### [facility] [address] [place], [address] MCV (RBC) [Entitic vol] 91.7 fL Normal 81-99 [facility] Comment on above: Performed By: #### L 500.4100, L100.0500, L500.2500 #### [facility] [address] [place], [address] Platelet mean volume (Bld) [Entitic vol] 10.7 fL Normal 6.2-12.0 [facility] Comment on above: Performed By: #### L 500.4100, L100.0500, L500.2500 #### [facility] [address] [place], [address] Platelets (Bld) [#/Vol] 271 10*3/uL Normal 150-450 [facility] Comment on above: Performed By: #### L 500.4100, L100.0500, L500.2500 #### [facility] [address] [place], [address] RBC (Bld) [#/Vol] 4.33 10*6/uL Normal 4.2-5.4 [facility] Comment on above: Performed By: #### L 500.4100, L100.0500, L500.2500 #### [facility] [address] [place], [address] RDW SD 42.8 fl Normal 35.1-43.9 [facility] Comment on above: Performed By: #### L 500.4100, L100.0500, L500.2500 #### [facility] [address] [place], [address] WBC (Bld) [#/Vol] 12.2 10*3/uL High 4.4-11.0 [facility] Comment on above: Performed By: #### L 500.4100, L100.0500, L500.2500 #### [facility] [address] [place], [address] Calculated very low density lipoprotein (VLDL) cholesterol measurementOrdered By: Matthew Oro on 09-11-2024 Calculated very low density lipoprotein (VLDL) cholesterol measurement 16 mg/dL 5-40 [facility] Carbon dioxide, total [Moles /volume] in Central venous bloodOrdered By: Matthew Oro on 09-11-2024 CO2 [Moles/Vol] 21.6 mmol/L 21.0-32.0 [facility] Chloride assayOrdered By: Urban Oro on 09-11-2024 Chloride [Moles/Vol] 105 mmol/L 98-108 [facility] Discharge Instructionon 08-29 Discharge Instruction [facility] Medical Records Department [address] [place] [address] Instructions for Home/Discharge Instructions 09/11/24 1214 MR#: [id number] Acct: [id number] Name: EZRA GONZALEZ Rep #: [id number] : 1935 89 From: Matthew Oro DO [...] Thurman DO; Ashu Leonard MD Signed Normal [facility] Electroencephalogramon 09-11 Electroencephalogram [facility] Pulmonary Services/Neurology [address] [place] [address] MR#: [id number] Acct: [id number] Name: EZRA GONZALEZ Rep #: [id number] : 1935 89 From: Castillo Jones MD Referring Dr: Status: ADM MARIELOS Location: [place] [address] Date: 09/10/24 Sex: F C EEG Results Procedure Details EEG Procedure Details: Inpatient routine EEG report performed at [facility] Study start time: 1326 on 09/11/24 [...] DO Date Dictated: 09/11/241501 Date Transcribed: 09/11/241501 Nonprofit Financial Controller: [place] Signed Normal [facility] Erythrocyte distribution wid th ratioOrdered By: Matthew Oro on 09-11-2024 Erythrocyte distribution width (RBC) [Ratio] 12.8 % 11.6-14.6 [facility] Erythrocyte distribution wid th standard deviationOrdered By: Matthew Oro on 09-11-2024 Erythrocyte distribution width (RBC) [Ratio] 42.8 fl 35.1-43.9 [facility] Glomerular filtration rate ( GFR) estimation/1.73 sq m using serum, plasma, or whole bOrdered By: Matthew Oro on 09-11-2024 GFR/1.73 sq M.predicted among non-blacks MDRD (S/P/Bld) [Vol rate/Area] 61 mL/min/{1.73_m2} >60 [facility] Comment on above: mL/min/1.73m2 CKD-EP I Creatinine Equation (2020) Hematocrit Auto (Bld) [Volum e fraction]Ordered By: Matthew Oro on 09-11-2024 Hematocrit (Bld) [Volume fraction] 39.7 % 37-47 [facility] Hemoglobin measurementOrdere d By: Matthew Oro on 09-11-2024 Hemoglobin (Bld) [Mass/Vol] 13.1 g/dL 12.0-15.0 [facility] LDL calc ser/plasOrdered By: Matthew Oro on 09-11-2024 Cholesterol in LDL [Mass/Vol] 100 mg/dL [facility] Comment on above: Umvmuxwzap=061-154 m g/dL & Higher Yote=849 mg/dL or greater Lipid Profileon 09-11-2024 CHOL:HDL 3.03 Normal [facility] Comment on above: Order Comment: Comme nts: NPO at [place] prior to lipid panel Performed By: #### L 500.4100, L100.0500, L500.2500 ####[facility] [address] [place], [address] Cholesterol [Mass/Vol] 172 mg/dL Normal <=200 [facility] Comment on above: Order Comment: Comme nts: NPO at [place] prior to lipid panel Result Comment: Chol esterol level, Desirable <200 mg/dL Borderline high cholesterol 200-239 mg/dL High cholesterol >=240 mg/dL Recommendations of the NCEP Adult Treatment Panel for the following risk-cutoff thresholds for the [place] population. Performed By: #### L 500.4100, L100.0500, L500.2500 ####[facility] [address] [place], [address] Cholesterol in HDL [Mass/Vol] 57 mg/dL Normal [facility] Comment on above: Order Comment: Comme [...] Performed By: #### L 500.4100, L100.0500, L500.2500 ####[facility] [address] [place], [address] Cholesterol in LDL [Mass/Vol] 100 mg/dL Normal [facility] Comment on above: Order Comment: Comme nts: NPO at [place] prior to lipid panel Result Comment: Bord eyudtu=644-053 mg/dL Higher Inyx=222 mg/dL or greater Performed By: #### L 500.4100, L100.0500, L500.2500 ####[facility] [address] [place], [address] Cholesterol in VLDL [Mass/Vol] 16 mg/dL Normal 5-40 [facility] Comment on above: Order Comment: Comme nts: NPO at [place] prior to lipid panel Performed By: #### L 500.4100, L100.0500, L500.2500 ####[facility] [address] [place], [address] Triglyceride [Mass/Vol] 78 mg/dL Normal [facility] Comment on above: Order Comment: Comme nts: NPO at [place] prior to lipid panel Result Comment: The drugs N-Acetylcysteine and Metamizole may falsely depress this assay. Normal range: <150 mg/dL Borderline High: 150-199 mg/dL High: 200-499 mg/dL Very High: >500 mg/dL Performed By: #### L 500.4100, L100.0500, L500.2500 ####[facility] [address] [place], [address] MCV (mean corpuscular volume ) determinationOrdered By: Matthew Oro on 09-11-2024 MCV (RBC) [Entitic vol] 91.7 fL 81-99 [facility] Mean corpuscular hemoglobin (MCH) determinationOrdered By: Matthew Oro on 09-11-2024 MCH (RBC) [Entitic mass] 30.3 pg 27.0-32.0 [facility] Mean corpuscular hemoglobin concentration (MCHC) determinationOrdered By: Matthew Oro on 09-11-2024 MCHC (RBC) [Mass/Vol] 33.0 g/dL 32-36 [facility] Mean platelet volume determi nationOrdered By: Matthew Oro on 09-11-2024 Platelet mean volume (Bld) [Entitic vol] 10.7 fL 6.2-12.0 [facility] Platelet countOrdered By: Urban Oro on 09-11-2024 Platelets (Bld) [#/Vol] 271 10*3/uL 150-450 [facility] Potassium measurement (mass/ volume)Ordered By: Matthew Oro on 09-11-2024 Potassium (Unsp spec) [Mass/Vol] 4.4 mmol/L 3.3-5.1 [facility] RBC Auto (Bld) [#/Vol]Ordere d By: Matthew Oro on 09-11-2024 RBC (Bld) [#/Vol] 4.33 10*6/uL 4.2-5.4 [facility] Screening total cholesterol/ high density lipoprotein (HDL) cholesterol ratioOrdered By: Matthew Oro on 09-11-2024 Cholesterol.total/Cholest felipe in HDL [Mass ratio] 3.03 {ratio} [facility] Serum creatinine measurement (mass/volume)Ordered By: Matthew Oro on 09-11-2024 Creatinine [Mass/Vol] 0.91 mg/dL 0.70-1.20 [facility] Serum glucose measurement (m ass/volume)Ordered By: Matthew Oro on 09-11-2024 Glucose [Mass/Vol] 118 mg/dL High 70-99 [facility] Serum or plasma calcium viktoria urement (mass/volume)Ordered By: Matthew Oro on 09-11-2024 Calcium [Mass/Vol] 8.8 mg/dL 7.6-11.0 [facility] Serum or plasma cholesterol in HDL measurement (mass/volume)Ordered By: Matthew Oro on 09-11-2024 Cholesterol in HDL [Mass/Vol] 57 mg/dL >40 [facility] Comment on above: National Cholesterol Education Program (NCEP) guidelines:<40 mg/dL: Low HDL-cholesterol (major risk factor for CHD)>= 60 mg/dL: High HDL-cholesterol (negative risk factor for CHD)HDL-cholesterol is affected by a number of factors, e.g. smoking, exercise, hormones, sex and age. Serum or plasma cholesterol measurement (mass/volume)Ordered By: Matthew Oro on 09-11-2024 Cholesterol [Mass/Vol] 172 mg/dL <201 [facility] Comment on above: Cholesterol level, D esirable <200 mg/dLBorderline high cholesterol 200-239 mg/dLHigh cholesterol >=240 mg/dLRecommendations of the NCEP Adult Treatment Panel for the following risk-cutoff thresholds for the [place] population. Serum or plasma urea nitroge n measurement (mass/volume)Ordered By: Matthew Oro on 09-11-2024 Urea nitrogen [Mass/Vol] 28 mg/dL High 4-19 [facility] Sodium levelOrdered By: All Oro on 09-11-2024 Sodium [Moles/Vol] 139 mmol/L 133-145 [facility] Triglycerides measurementOrd ered By: Matthew Oro on 09-11-2024 Triglyceride [Mass/Vol] 78 mg/dL <199 [facility] Comment on above: The drugs N-Acetylcy steine and Metamizole may falsely depress this assay. Normal range: <150 mg/dLBorderline High: 150-199 mg/dLHigh: 200-499 mg/dLVery High: >500 mg/dL White blood cell (WBC) count Ordered By: Matthew Oro on 09-11-2024 WBC (Bld) [#/Vol] 12.2 10*3/uL High 4.4-11.0 [facility] Absolute lymphocyte countOrd ered By: Teri Garcia on 09-10-2024 Lymphocytes Auto (Unsp spec) [#/Vol] 1.91 10*3/uL 0.83-4.51 [facility] Absolute neutrophil countOrd ered By: Teri Garcia on 09-10-2024 Neutrophils (Bld) [#/Vol] 8.3 10*3/uL High 2.0-7.7 [facility] Activated partial thrombopla stin time (aPTT) in platelet poor plasma by coagulation aOrdered By: Teri Garcia on 09-10-2024 aPTT Coag (PPP) [Time] 31.8 s 24.1-36.2 [facility] Anion gap in Serum or Plasma Ordered By: Teri Garcia on 09-10-2024 Anion gap [Moles/Vol] 12 mmol/L 5-15 [facility] Automated lymphocyte count a s percentage of total leukocytesOrdered By: Teri Garcia on 09-10-2024 Lymphocytes/100 WBC Auto (Unsp spec) 16.6 % Low 19-41 [facility] BUN/creatinine ratioOrdered By: Teri Garcia on 09-10-2024 Urea nitrogen/Creatinine [Mass ratio] 34.8 mg/mg High 10-20 [facility] Basic Metabolic Profile (BMP )on 09-10-2024 BUN/CRE 34.8 RATIO High - [facility] Comment on above: Performed By: #### L 300.4310, L500.2500, L100.0100, L501.4021, L300.3900 ####[facility] [address] [place], [address] Calcium [Mass/Vol] 8.7 mg/dL Normal 7.6-11.0 [facility] Comment on above: Performed By: #### L 300.4310, L500.2500, L100.0100, L501.4021, L300.3900 ####[facility] [address] [place], [address] Chloride [Moles/Vol] 103 mmol/L Normal 98-108 [facility] Comment on above: Performed By: #### L 300.4310, L500.2500, L100.0100, L501.4021, L300.3900 ####[facility] [address] [place], [address] CO2 [Moles/Vol] 21.8 mmol/L Normal 21.0-32.0 [facility] Comment on above: Performed By: #### L 300.4310, L500.2500, L100.0100, L501.4021, L300.3900 ####[facility] [address] [place], [address] Creatinine [Mass/Vol] 1.05 mg/dL Normal 0.70-1.20 [facility] Comment on above: Performed By: #### L 300.4310, L500.2500, L100.0100, L501.4021, L300.3900 ####[facility] [address] [place], [address] ECRCL 33.63 ml/min Low 50-250 [facility] Comment on above: Performed By: #### L 300.4310, L500.2500, L100.0100, L501.4021, L300.3900 ####[facility] [address] [place], [address] GAP 12 Normal 5-15 [facility] Comment on above: Performed By: #### L 300.4310, L500.2500, L100.0100, L501.4021, L300.3900 ####[facility] [address] [place], [address] GFR/1.73 sq M.predicted among non-blacks MDRD (S/P/Bld) [Vol rate/Area] 51 mL/min/{1.73_m2} Low >60 [facility] Comment on above: Result Comment: mL/m in/1.73m2 CKD-EPI Creatinine Equation (2020) Performed By: #### L 300.4310, L500.2500, L100.0100, L501.4021, L300.3900 ####[facility] [address] [place], [address] Glucose [Mass/Vol] 131 mg/dL High 70-99 [facility] Comment on above: Performed By: #### L 300.4310, L500.2500, L100.0100, L501.4021, L300.3900 ####[facility] [address] [place], [address] Potassium [Moles/Vol] 4.4 mmol/L Normal 3.3-5.1 [facility] Comment on above: Result Comment: Hemo lysis present, Results??could be affected. ?? Performed By: #### L 300.4310, L500.2500, L100.0100, L501.4021, L300.3900 ####[facility] [address] [place], [address] Sodium [Moles/Vol] 137 mmol/L Normal 133-145 [facility] Comment on above: Performed By: #### L 300.4310, L500.2500, L100.0100, L501.4021, L300.3900 ####[facility] [address] [place], [address] Urea nitrogen [Mass/Vol] 37 mg/dL High 4-19 [facility] Comment on above: Performed By: #### L 300.4310, L500.2500, L100.0100, L501.4021, L300.3900 ####[facility] [address] [place], [address] Basophil percentageOrdered B y: Teri Garcia on 09-10-2024 Basophils/100 WBC (Bld) 0.4 % 0-1 [facility] Bilirubin Test strip Ql (U)O rdered By: Teri Garcia on 09-10-2024 Bilirubin Ql (U) Negative Negative [facility] Brain without Contraston Brain without Contrast [facility] Imaging Services [address] [place] [address] Brain without Contrast MR#: [id number] Acct: [id number] Name: EZRA GONZALEZ Rep #: [id number] : 1935 F 89 From: Matthias Márquez MD PCP: Dr. Chucky Ocoha, DO Status: ADM MARIELOS Study: Brain without Contrast Date of Exam: 09/10/24 Exam# [id number] Ordering Dr: Matthew Oro DO PROCEDURE: BRAIN [...] Atrophy and mild microvascular changes Reading Location: [facility] CC: Dr. Matthew Oro, DO; Dr. Chucky Ochoa, DO Nonprofit Financial Controller: Signed Normal [facility] CBC W/Diff, Automatedon 08-29 Absolute Lymph 1.91 X10 3/uL Normal 0.83-4.51 [facility] Comment on above: Performed By: #### L 300.4310, L500.2500, L100.0100, L501.4021, L300.3900 ####[facility] [address] [place], [address] Absolute Neut 8.3 X10 3/uL High 2.0-7.7 [facility] Comment on above: Performed By: #### L 300.4310, L500.2500, L100.0100, L501.4021, L300.3900 ####[facility] [address] [place], [address] Basophils/100 WBC (Bld) 0.4 % Normal 0-1 [facility] Comment on above: Performed By: #### L 300.4310, L500.2500, L100.0100, L501.4021, L300.3900 ####[facility] [address] [place], [address] Eosinophils/100 WBC (Bld) 1.2 % Normal 0-5 [facility] Comment on above: Performed By: #### L 300.4310, L500.2500, L100.0100, L501.4021, L300.3900 ####[facility] [address] [place], [address] Erythrocyte distribution width (RBC) [Ratio] 13.2 % Normal 11.6-14.6 [facility] Comment on above: Performed By: #### L 300.4310, L500.2500, L100.0100, L501.4021, L300.3900 ####[facility] [address] [place], [address] Hematocrit (Bld) [Volume fraction] 41.7 % Normal 37-47 [facility] Comment on above: Performed By: #### L 300.4310, L500.2500, L100.0100, L501.4021, L300.3900 ####[facility] [address] [place], [address] Hemoglobin (Bld) [Mass/Vol] 13.6 g/dL Normal 12.0-15.0 [facility] Comment on above: Performed By: #### L 300.4310, L500.2500, L100.0100, L501.4021, L300.3900 ####[facility] [address] [place], [address] IG% 0.400 Normal 0.0-0.9 [facility] Comment on above: Result Comment: IG% - Immature Granulocytes (promyelocytes, myelocytes and metamyelocytes) > 1% indicates that a LEFT SHIFT is Present. Performed By: #### L 300.4310, L500.2500, L100.0100, L501.4021, L300.3900 ####[facility] [address] [place], [address] Lymphocytes/100 WBC (Bld) 16.6 % Low 19-41 [facility] Comment on above: Performed By: #### L 300.4310, L500.2500, L100.0100, L501.4021, L300.3900 ####[facility] [address] [place], [address] MCH (RBC) [Entitic mass] 30.6 pg Normal 27.0-32.0 [facility] Comment on above: Performed By: #### L 300.4310, L500.2500, L100.0100, L501.4021, L300.3900 ####[facility] [address] [place], [address] MCHC (RBC) [Mass/Vol] 32.6 g/dL Normal 32-36 [facility] Comment on above: Performed By: #### L 300.4310, L500.2500, L100.0100, L501.4021, L300.3900 ####[facility] [address] [place], [address] MCV (RBC) [Entitic vol] 93.9 fL Normal 81-99 [facility] Comment on above: Performed By: #### L 300.4310, L500.2500, L100.0100, L501.4021, L300.3900 ####[facility] [address] [place], [address] Monocytes/100 WBC (Bld) 9.1 % Normal 0-10 [facility] Comment on above: Performed By: #### L 300.4310, L500.2500, L100.0100, L501.4021, L300.3900 ####[facility] [address] [place], [address] Neutrophils/100 WBC (Bld) 72.3 % High 47-70 [facility] Comment on above: Performed By: #### L 300.4310, L500.2500, L100.0100, L501.4021, L300.3900 ####[facility] [address] [place], [address] Nucleated RBC (Bld) [#/Vol] 0 10*3/uL Normal 0-5 [facility] Comment on above: Performed By: #### L 300.4310, L500.2500, L100.0100, L501.4021, L300.3900 ####[facility] [address] [place], [address] Platelet mean volume (Bld) [Entitic vol] 10.4 fL Normal 6.2-12.0 [facility] Comment on above: Performed By: #### L 300.4310, L500.2500, L100.0100, L501.4021, L300.3900 ####[facility] [address] [place], [address] Platelets (Bld) [#/Vol] 269 10*3/uL Normal 150-450 [facility] Comment on above: Performed By: #### L 300.4310, L500.2500, L100.0100, L501.4021, L300.3900 ####[facility] [address] [place], [address] RBC (Bld) [#/Vol] 4.44 10*6/uL Normal 4.2-5.4 [facility] Comment on above: Performed By: #### L 300.4310, L500.2500, L100.0100, L501.4021, L300.3900 ####[facility] [address] [place], [address] RDW SD 45.4 fl High 35.1-43.9 [facility] Comment on above: Performed By: #### L 300.4310, L500.2500, L100.0100, L501.4021, L300.3900 ####[facility] [address] [place], [address] WBC (Bld) [#/Vol] 11.5 10*3/uL High 4.4-11.0 [facility] Comment on above: Performed By: #### L 300.4310, L500.2500, L100.0100, L501.4021, L300.3900 ####[facility] [address] [place], [address] Carbon dioxide, total [Moles /volume] in Central venous bloodOrdered By: Teri Garcia on 09-10-2024 CO2 [Moles/Vol] 21.8 mmol/L 21.0-32.0 [facility] Chloride assayOrdered By: Adam Garcia on 09-10-2024 Chloride [Moles/Vol] 103 mmol/L 98-108 [facility] Emergency Department Summary on 09-10-2024 Emergency Department Summary [facility] Medical Records Department [address] [place] [address] Emergency Department Summary 09/10/24 MR#: [id number] Acct: [id number] Name: EZRA GONZALEZ Rep #: [id number] : 1935 89 From: Teri Garcia DO PCP: Dr. Chucky Ochoa DO Status:[facility] ER Location: ED HPI History of Present [...] son Wilfredo (her eldest son) phone number [phone]. He states that she follows with Dr. 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 Normal [facility] Eosinophil percentageOrdered By: Teri Garcia on 09-10-2024 Eosinophils/100 WBC (Bld) 1.2 % 0-5 [facility] Erythrocyte distribution wid th ratioOrdered By: Teri Garcia on 09-10-2024 Erythrocyte distribution width (RBC) [Ratio] 13.2 % 11.6-14.6 [facility] Erythrocyte distribution wid th standard deviationOrdered By: Teri Garcia on 09-10-2024 Erythrocyte distribution width (RBC) [Ratio] 45.4 fl High 35.1-43.9 [facility] Glomerular filtration rate ( GFR) estimation/1.73 sq m using serum, plasma, or whole bOrdered By: Teri Garcia on 09-10-2024 GFR/1.73 sq M.predicted among non-blacks MDRD (S/P/Bld) [Vol rate/Area] 51 mL/min/{1.73_m2} Low >60 [facility] Comment on above: mL/min/1.73m2 CKD-EP I Creatinine Equation (2020) H AND P Exam - [facility] 09-10-2024 H&P Exam - Hospitalist [facility] Medical Records Department [address] [place] [address] H P Exam - Hospitalist 09/10/24 1603 MR#: [id number] Acct: [id number] Name: EZRA GONZALEZ Rep #: [id number] : 1935 89 From: Matthew Oro DO PCP: Dr. Chucky Ochoa DO Status:ADM MARIELOS Location: [place] [address] HPI - General General Date of Admission: 09/10/24 Date of Service: 09/10/24 Chief Complaint: Dysarthria HPI Narrative EZRA GONZALEZ, is a 89 F who presented to [facility] ED on 09/10/2024 with dysarthria. Patient lives at assisted living at [place]. Has history of seizures and is on [...] any other acute concerns at this time. 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 Normal [facility] Hematocrit Auto (Bld) [Volum e fraction]Ordered By: Teri Garcia on 09-10-2024 Hematocrit (Bld) [Volume fraction] 41.7 % 37-47 [facility] Hemoglobin measurementOrdere d By: Teri Garcia on 09-10-2024 Hemoglobin (Bld) [Mass/Vol] 13.6 g/dL 12.0-15.0 [facility] Immature granulocytes/100 WB C Auto (Bld)Ordered By: Teri Garcia on 09-10-2024 Immature granulocytes/100 WBC (Bld) 0.400 % 0.0-0.9 [facility] Comment on above: IG% - Immature Granu locytes (promyelocytes, myelocytes and metamyelocytes) > 1% indicates that a LEFT SHIFT is Present. International normalized rat io (INR) calculationOrdered By: Teri Garcia on 09-10-2024 INR Coag (Bld) [Relative time] 2.4 {INR} [facility] Ketones Test strip Ql (U)Ord ered By: Teri Garcia on 09-10-2024 Ketones Ql (U) Negative Negative [facility] L499.0042on 09-10-2024 Trop T High Sen 17 ng/L High <=14 [facility] Comment on above: Performed By: #### L 499.0042 ####[facility] [address] [place], [address] L499.0043on 09-10-2024 Trop T High Sen 15 ng/L High <=14 [facility] Comment on above: Performed By: #### L 499.0043 #### [facility] Laboratory [address] [place], [address] L501.4021on 09-10-2024 Trop T High Sen 18 ng/L High <=14 [facility] Comment on above: Performed By: #### L 300.4310, L500.2500, L100.0100, L501.4021, L300.3900 ####[facility] [address] [place], [address] MCV (mean corpuscular volume ) determinationOrdered By: Teri Garcia on 09-10-2024 MCV (RBC) [Entitic vol] 93.9 fL 81-99 [facility] Magnetic resonance imaging r eportOrdered By: Matthias Márquez on 09-10-2024 Study report [facility] Imaging Services [address] [place] [address] Brain without Contrast MR#: [id number] Acct: [id number] Name: EZRA GONZALEZ Rep #: [id number] : 1935 F 89 From: Bill Márquez MD PCP: Dr. Chucky Ochoa, DO Status: ADM MARIELOS Study:Brain without Contrast Date of Exam: 09/10/24 Exam# [id number] Ordering Dr: Matthew Patel DO PROCEDURE: BRAIN [...] Atrophy and mild microvascular changes Reading Location: [facility] CC: Dr. Matthew Oro, DO; Dr. Chucky Ochoa, DO ~ Nonprofit Financial Controller: Signed [facility] Mean corpuscular hemoglobin (MCH) determinationOrdered By: Teri Garcia on 09-10-2024 MCH (RBC) [Entitic mass] 30.6 pg 27.0-32.0 [facility] Mean corpuscular hemoglobin concentration (MCHC) determinationOrdered By: Teri Garcia on 09-10-2024 MCHC (RBC) [Mass/Vol] 32.6 g/dL 32-36 [facility] Mean platelet volume determi nationOrdered By: Teri Garcia on 09-10-2024 Platelet mean volume (Bld) [Entitic vol] 10.4 fL 6.2-12.0 [facility] Microscopic analysis of urin e for red blood cells (RBC)Ordered By: Teri Garcia on 09-10-2024 Microscopic analysis of urine for red blood cells (RBC) 0 SEEN /hpf 0-5 [facility] Monocyte percentageOrdered B y: Teri Garcia on 09-10-2024 Monocytes/100 WBC (Bld) 9.1 % 0-10 [facility] Mucus LM Ql (Urine sed)Order ed By: Teri Garcia on 09-10-2024 Mucus Ql (Urine sed) 0 SEEN /hpf [facility] Neutrophil percentageOrdered By: Teri Garcia on 09-10-2024 Neutrophils/100 WBC (Bld) 72.3 % High 47-70 [facility] Nitrite Test strip Ql (U)Ord ered By: Teri Garcia on 09-10-2024 Nitrite Ql (U) Negative Negative [facility] Nucleated red blood cell per centageOrdered By: Teri Garcia on 09-10-2024 Nucleated RBC/100 WBC (Bld) [Ratio] 0 % 0-5 [facility] Partial Thromboplast Timeon 09-10-2024 aPTT Coag (Bld) [Time] 31.8 s Normal 24.1-36.2 [facility] Comment on above: Performed By: #### L 300.4310, L500.2500, L100.0100, L501.4021, L300.3900 ####[facility] [address] [place], [address] Platelet countOrdered By: Adam Garcia on 09-10-2024 Platelets (Bld) [#/Vol] 269 10*3/uL 150-450 [facility] Potassium measurement (mass/ volume)Ordered By: Teri Garcia on 09-10-2024 Potassium (Unsp spec) [Mass/Vol] 4.4 mmol/L 3.3-5.1 [facility] Comment on above: Hemolysis present, R esults could be affected. Protein Test strip Ql (U)Ord ered By: Teri Garcia on 09-10-2024 Protein Ql (U) 30 mg/dl High Negative [facility] Prothrombin Time w/INRon INR Coag (PPP) [Relative time] 2.4 {INR} Normal [facility] Comment on above: Performed By: #### L 300.4310, L500.2500, L100.0100, L501.4021, L300.3900 ####[facility] [address] [place], [address] PT Coag (PPP) [Time] 26.4 s High 11.7-14.9 [facility] Comment on above: Performed By: #### L 300.4310, L500.2500, L100.0100, L501.4021, L300.3900 ####[facility] [address] [place], [address] Prothrombin timeOrdered By: Teri Garcia on 09-10-2024 PT Coag (PPP) [Time] 26.4 s High 11.7-14.9 [facility] RBC Auto (Bld) [#/Vol]Ordere d By: Teri Garcia on 09-10-2024 RBC (Bld) [#/Vol] 4.44 10*6/uL 4.2-5.4 [facility] STROKE Brain/Head without Co nton 09-10-2024 STROKE Brain/Head without Cont [facility] Imaging Services [address] [place], [place] [address] STROKE Brain/Head without Cont MR#: [id number] Acct: [id number] Name: EZRA GONZALEZ Rep #: [id number] : 1935 F 89 From: Mio nayak MD PCP: Dr. Chucky Ochoa, DO Status: [facility] ER Study: STROKE Brain/Head without Cont Date of Exam: 0 09/10/24 Exam# [id number] Ordering Dr: Teri Garcia DO PROCEDURE: STROKE [...] 2:05 pm with readback verification. Reading Location: [id number] CC: Dr. Teri Garcia DO; Dr. Chucky Ochoa DO Nonprofit Financial Controller: Signed Normal [facility] STROKE CTA Head AND Neck W/C onon 09-10-2024 STROKE CTA Head AND Neck W/Con [facility] Imaging Services [address] [place] [address] STROKE CTA Head AND Neck W/Con MR#: [id number] Acct: [id number] Name: EZRA GONZALEZ Rep #: [id number] : 1935 F 89 From: iMo nayak MD PCP: Dr. Chucky Ochoa DO Status: REG ER Study: STROKE CTA Head AND Neck W/Con Date of Exam: 0 09/10/24 Exam# [id number] Ordering Dr: Teri Garcia DO PROCEDURE: STROKE [...] RIGHT Vertebral: Unremarkable. LEFT Vertebral: Unremarkable. Anatomy: [place] of [place] anatomy is normal. Aneurysm or [...] 3:01 pm with readback verification. Reading Location: [id number] CC: Dr. Teri Garcia DO; Dr. Chucky Ochoa DO Nonprofit Financial Controller: Signed Normal [facility] Serum creatinine measurement (mass/volume)Ordered By: Teri Garcia on 09-10-2024 Creatinine [Mass/Vol] 1.05 mg/dL 0.70-1.20 [facility] Serum glucose measurement (m ass/volume)Ordered By: Teri Garcia on 09-10-2024 Glucose [Mass/Vol] 131 mg/dL High 70-99 [facility] Serum or plasma calcium viktoria urement (mass/volume)Ordered By: Teri Garcia on 09-10-2024 Calcium [Mass/Vol] 8.7 mg/dL 7.6-11.0 [facility] Serum or plasma urea nitroge n measurement (mass/volume)Ordered By: Teri Garcia on 09-10-2024 Urea nitrogen [Mass/Vol] 37 mg/dL High 4-19 [facility] Sodium levelOrdered By: Ollie Garcia on 09-10-2024 Sodium [Moles/Vol] 137 mmol/L 133-145 [facility] Squamous epithelial cells de tection in urine sediment by light microscopyOrdered By: Teri Garcia on 09-10-2024 Epithelial cells.squamous LM Ql (Urine sed) 0-5 SEEN /hpf 5-10 [facility] Troponin T.cardiac [Mass/vol ume] in Serum or Plasma by High sensitivity methodOrdered By: Teri Garcia on 09-10-2024 Troponin T.cardiac High sensitivity method [Mass/Vol] 15 ng/L High <14 [facility] Troponin T.cardiac High sensitivity method [Mass/Vol] 17 ng/L High <14 [facility] Troponin T.cardiac High sensitivity method [Mass/Vol] 18 ng/L High <14 [facility] Urinalysis, Completeon 09-10 BACTERIA RARE Normal None Seen [facility] Comment on above: Order Comment: RANDY CTOR TO SPECIFY Performed By: #### L 400.0001 ####[facility] [address] [place], [address] EPI,SQUAMOUS 0-5 SEEN Normal 5-10 [facility] Comment on above: Order Comment: RANDY CTOR TO SPECIFY Performed By: #### L 400.0001 ####[facility] [address] [place], [address] WBC 10-25 SEEN Normal 0-5 [facility] Comment on above: Order Comment: RANDY CTOR TO SPECIFY Performed By: #### L 400.0001 ####[facility] [address] [place], [address] Mucus Ql (Urine sed) 0 SEEN Normal [facility] Comment on above: Order Comment: RANDY CTOR TO SPECIFY Performed By: #### L 400.0001 ####[facility] [address] [place], [address] RBC 0 SEEN Normal 0-5 [facility] Comment on above: Order Comment: RANDY CTOR TO SPECIFY Performed By: #### L 400.0001 ####[facility] [address] [place], [address] Urine clarityOrdered By: Lashaun Garcia on 09-10-2024 Clarity (U) Clear Clear [facility] Urine color determinationOrd ered By: Teri Garcia on 09-10-2024 Color (U) Straw Yellow [facility] Urine cultureOrdered By: Lashaun Garcia on 09-10-2024 Bacteria identified Cx Nom (U) Klebsiella pneumoniae sp pneum Abnormal [facility] Urine glucose detectionOrder ed By: Teri Garcia on 09-10-2024 Glucose Ql (U) Normal mg/dl Normal [facility] Urine leukocyte esterase det ection by dipstickOrdered By: Teri Garcia on 09-10-2024 Leukocyte esterase Test strip Ql (U) 500 /ul High Negative [facility] Urine pHOrdered By: Teri romero on 09-10-2024 pH (U) 5.0 [pH] 5.0 - 8.0 [facility] Urine sediment bacteria coun t by microscopy (number/high power field)Ordered By: Teri Garcia on 09-10-2024 Bacteria LM.HPF (Urine sed) [#/Area] RARE /hpf None Seen [facility] Urine specific gravity measu rementOrdered By: Teri Garcia on 09-10-2024 Specific gravity (U) [Rel density] 1.010 1.002-1.030 [facility] Urine urobilinogen measureme ntOrdered By: Teri Garcia on 09-10-2024 Urobilinogen Ql (U) Normal mg/dl Normal [facility] White blood cell (WBC) count Ordered By: Teri Garcia on 09-10-2024 WBC (Bld) [#/Vol] 11.5 10*3/uL High 4.4-11.0 [facility] White blood cell countOrdere d By: Teri Garcia on 09-10-2024 White blood cell count 10-25 SEEN /hpf 0-5 [facility] Absolute lymphocyte countOrd ered By: Anoop Blackmon on 09-08-2024 Lymphocytes Auto (Unsp spec) [#/Vol] 2.21 10*3/uL 0.83-4.51 [facility] Absolute neutrophil countOrd ered By: Anoop Blackmon on 09-08-2024 Neutrophils (Bld) [#/Vol] 10.3 10*3/uL High 2.0-7.7 [facility] Anion gap in Serum or Plasma Ordered By: Anoop Blackmon on 09-08-2024 Anion gap [Moles/Vol] 11 mmol/L 5-15 [facility] Automated lymphocyte count a s percentage of total leukocytesOrdered By: Anoop Blackmon on 09-08-2024 Lymphocytes/100 WBC Auto (Unsp spec) 16.2 % Low 19-41 [facility] BUN/creatinine ratioOrdered By: Anoop Blackmon on 09-08-2024 Urea nitrogen/Creatinine [Mass ratio] 35.2 mg/mg High 10-20 [facility] Basic Metabolic Profile (BMP )on 09-08-2024 BUN/CRE 35.2 RATIO High - [facility] Comment on above: Performed By: #### L 100.0100, L500.2500, L300.3900, L3300.4400 ####[facility] [address] [place], [address] Calcium [Mass/Vol] 8.9 mg/dL Normal 7.6-11.0 [facility] Comment on above: Performed By: #### L 100.0100, L500.2500, L300.3900, L3300.4400 ####[facility] [address] [place], [address] Chloride [Moles/Vol] 105 mmol/L Normal 98-108 [facility] Comment on above: Performed By: #### L 100.0100, L500.2500, L300.3900, L3300.4400 ####[facility] [address] [place], [address] CO2 [Moles/Vol] 22.4 mmol/L Normal 21.0-32.0 [facility] Comment on above: Performed By: #### L 100.0100, L500.2500, L300.3900, L3300.4400 ####[facility] [address] [place], [address] Creatinine [Mass/Vol] 1.00 mg/dL Normal 0.70-1.20 [facility] Comment on above: Performed By: #### L 100.0100, L500.2500, L300.3900, L3300.4400 ####[facility] [address] [place], [address] ECRCL 39.57 ml/min Low 50-250 [facility] Comment on above: Performed By: #### L 100.0100, L500.2500, L300.3900, L3300.4400 ####[facility] [address] [place], [address] GAP 11 Normal 5-15 [facility] Comment on above: Performed By: #### L 100.0100, L500.2500, L300.3900, L3300.4400 ####[facility] [address] [place], [address] GFR/1.73 sq M.predicted among non-blacks MDRD (S/P/Bld) [Vol rate/Area] 54 mL/min/{1.73_m2} Low >60 [facility] Comment on above: Result Comment: mL/m in/1.73m2 CKD-EPI Creatinine Equation (2020) Performed By: #### L 100.0100, L500.2500, L300.3900, L3300.4400 ####[facility] [address] [place], [address] Glucose [Mass/Vol] 149 mg/dL High 70-99 [facility] Comment on above: Performed By: #### L 100.0100, L500.2500, L300.3900, L3300.4400 ####[facility] [address] [place], [address] Potassium [Moles/Vol] 4.7 mmol/L Normal 3.3-5.1 [facility] Comment on above: Performed By: #### L 100.0100, L500.2500, L300.3900, L3300.4400 ####[facility] [address] [place], [address] Sodium [Moles/Vol] 138 mmol/L Normal 133-145 [facility] Comment on above: Performed By: #### L 100.0100, L500.2500, L300.3900, L3300.4400 ####[facility] [address] [place], [address] Urea nitrogen [Mass/Vol] 35 mg/dL High 4-19 [facility] Comment on above: Performed By: #### L 100.0100, L500.2500, L300.3900, L3300.4400 ####[facility] [address] [place], [address] Basophil percentageOrdered B y: Anoop Blackmon on 09-08-2024 Basophils/100 WBC (Bld) 0.2 % 0-1 [facility] CBC W/Diff, Automatedon 08-29 Absolute Lymph 2.21 X10 3/uL Normal 0.83-4.51 [facility] Comment on above: Performed By: #### L 100.0100, L500.2500, L300.3900, L3300.4400 ####[facility] [address] [place], [address] Absolute Neut 10.3 X10 3/uL High 2.0-7.7 [facility] Comment on above: Performed By: #### L 100.0100, L500.2500, L300.3900, L3300.4400 ####[facility] [address] [place], [address] Basophils/100 WBC (Bld) 0.2 % Normal 0-1 [facility] Comment on above: Performed By: #### L 100.0100, L500.2500, L300.3900, L3300.4400 ####[facility] [address] [place], [address] Eosinophils/100 WBC (Bld) 0.7 % Normal 0-5 [facility] Comment on above: Performed By: #### L 100.0100, L500.2500, L300.3900, L3300.4400 ####[facility] [address] [place], [address] Erythrocyte distribution width (RBC) [Ratio] 13.2 % Normal 11.6-14.6 [facility] Comment on above: Performed By: #### L 100.0100, L500.2500, L300.3900, L3300.4400 ####[facility] [address] [place], [address] Hematocrit (Bld) [Volume fraction] 41.4 % Normal 37-47 [facility] Comment on above: Performed By: #### L 100.0100, L500.2500, L300.3900, L3300.4400 ####[facility] [address] [place], [address] Hemoglobin (Bld) [Mass/Vol] 13.8 g/dL Normal 12.0-15.0 [facility] Comment on above: Performed By: #### L 100.0100, L500.2500, L300.3900, L3300.4400 ####[facility] [address] [place], [address] IG% 0.400 Normal 0.0-0.9 [facility] Comment on above: Result Comment: IG% - Immature Granulocytes (promyelocytes, myelocytes and metamyelocytes) > 1% indicates that a LEFT SHIFT is Present. Performed By: #### L 100.0100, L500.2500, L300.3900, L3300.4400 ####[facility] [address] [place], [address] Lymphocytes/100 WBC (Bld) 16.2 % Low 19-41 [facility] Comment on above: Performed By: #### L 100.0100, L500.2500, L300.3900, L3300.4400 ####[facility] [address] [place], [address] MCH (RBC) [Entitic mass] 31.4 pg Normal 27.0-32.0 [facility] Comment on above: Performed By: #### L 100.0100, L500.2500, L300.3900, L3300.4400 ####[facility] [address] [place], [address] MCHC (RBC) [Mass/Vol] 33.3 g/dL Normal 32-36 [facility] Comment on above: Performed By: #### L 100.0100, L500.2500, L300.3900, L3300.4400 ####[facility] [address] [place], [address] MCV (RBC) [Entitic vol] 94.1 fL Normal 81-99 [facility] Comment on above: Performed By: #### L 100.0100, L500.2500, L300.3900, L3300.4400 ####[facility] [address] [place], [address] Monocytes/100 WBC (Bld) 6.6 % Normal 0-10 [facility] Comment on above: Performed By: #### L 100.0100, L500.2500, L300.3900, L3300.4400 ####[facility] [address] [place], [address] Neutrophils/100 WBC (Bld) 75.9 % High 47-70 [facility] Comment on above: Performed By: #### L 100.0100, L500.2500, L300.3900, L3300.4400 ####[facility] [address] [place], [address] Nucleated RBC (Bld) [#/Vol] 0 10*3/uL Normal 0-5 [facility] Comment on above: Performed By: #### L 100.0100, L500.2500, L300.3900, L3300.4400 ####[facility] [address] [place], [address] Platelet mean volume (Bld) [Entitic vol] 10.8 fL Normal 6.2-12.0 [facility] Comment on above: Performed By: #### L 100.0100, L500.2500, L300.3900, L3300.4400 ####[facility] [address] [place], [address] Platelets (Bld) [#/Vol] 326 10*3/uL Normal 150-450 [facility] Comment on above: Performed By: #### L 100.0100, L500.2500, L300.3900, L3300.4400 ####[facility] [address] [place], [address] RBC (Bld) [#/Vol] 4.40 10*6/uL Normal 4.2-5.4 [facility] Comment on above: Performed By: #### L 100.0100, L500.2500, L300.3900, L3300.4400 ####[facility] [address] [place], [address] RDW SD 45.2 fl High 35.1-43.9 [facility] Comment on above: Performed By: #### L 100.0100, L500.2500, L300.3900, L3300.4400 ####[facility] [address] [place], [address] WBC (Bld) [#/Vol] 13.6 10*3/uL High 4.4-11.0 [facility] Comment on above: Performed By: #### L 100.0100, L500.2500, L300.3900, L3300.4400 ####[facility] [address] [place], [address] Carbon dioxide, total [Moles /volume] in Central venous bloodOrdered By: Anoop Blackmon on 09-08-2024 CO2 [Moles/Vol] 22.4 mmol/L 21.0-32.0 [facility] Chloride assayOrdered By: Monserrat Blackmon on 09-08-2024 Chloride [Moles/Vol] 105 mmol/L 98-108 [facility] Emergency Department Summary on 09-08-2024 Emergency Department Summary [facility] Medical Records Department [address] [place] [address] Emergency Department Summary 09/08/24 MR#: [id number] Acct: [id number] Name: EZRA GONZALEZ Rep #: [id number] : 1935 89 From: Anoop Blackmon MD [...] Spinal stenosis Osteoarthritis 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 Normal [facility] Eosinophil percentageOrdered By: Anoop Blackmon on 09-08-2024 Eosinophils/100 WBC (Bld) 0.7 % 0-5 [facility] Erythrocyte distribution wid th ratioOrdered By: Anoop Blackmon on 09-08-2024 Erythrocyte distribution width (RBC) [Ratio] 13.2 % 11.6-14.6 [facility] Erythrocyte distribution wid th standard deviationOrdered By: Anoop Blackmon on 09-08-2024 Erythrocyte distribution width (RBC) [Ratio] 45.2 fl High 35.1-43.9 [facility] Glomerular filtration rate ( GFR) estimation/1.73 sq m using serum, plasma, or whole bOrdered By: Anoop Blackmon on 09-08-2024 GFR/1.73 sq M.predicted among non-blacks MDRD (S/P/Bld) [Vol rate/Area] 54 mL/min/{1.73_m2} Low >60 [facility] Comment on above: mL/min/1.73m2 CKD-EP I Creatinine Equation (2020) Hematocrit Auto (Bld) [Volum e fraction]Ordered By: Anooppierce Blackmon on 09-08-2024 Hematocrit (Bld) [Volume fraction] 41.4 % 37-47 [facility] Hemoglobin measurementOrdere d By: Anoop Blackmon on 09-08-2024 Hemoglobin (Bld) [Mass/Vol] 13.8 g/dL 12.0-15.0 [facility] Immature granulocytes/100 WB C Auto (Bld)Ordered By: Anoop Blackmon on 09-08-2024 Immature granulocytes/100 WBC (Bld) 0.400 % 0.0-0.9 [facility] Comment on above: IG% - Immature Granu locytes (promyelocytes, myelocytes and metamyelocytes) > 1% indicates that a LEFT SHIFT is Present. International normalized rat io (INR) calculationOrdered By: Anooppierce Blackmon on 09-08-2024 INR Coag (Bld) [Relative time] 2.9 {INR} [facility] MCV (mean corpuscular volume ) determinationOrdered By: Anoop Blackmon on 09-08-2024 MCV (RBC) [Entitic vol] 94.1 fL 81-99 [facility] Mean corpuscular hemoglobin (MCH) determinationOrdered By: Anooppierce Blackmon on 09-08-2024 MCH (RBC) [Entitic mass] 31.4 pg 27.0-32.0 [facility] Mean corpuscular hemoglobin concentration (MCHC) determinationOrdered By: Anooppierce Blackmon on 09-08-2024 MCHC (RBC) [Mass/Vol] 33.3 g/dL 32-36 [facility] Mean platelet volume determi nationOrdered By: Anooppierce Blackmon on 09-08-2024 Platelet mean volume (Bld) [Entitic vol] 10.8 fL 6.2-12.0 [facility] Monocyte percentageOrdered B y: Anoop Blackmon on 09-08-2024 Monocytes/100 WBC (Bld) 6.6 % 0-10 [facility] Neutrophil percentageOrdered By: Anooppierce Blackmon on 09-08-2024 Neutrophils/100 WBC (Bld) 75.9 % High 47-70 [facility] Nucleated red blood cell per centageOrdered By: Anoop Blackmon on 09-08-2024 Nucleated RBC/100 WBC (Bld) [Ratio] 0 % 0-5 [facility] Platelet countOrdered By: Monserrat Blackmon on 09-08-2024 Platelets (Bld) [#/Vol] 326 10*3/uL 150-450 [facility] Potassium measurement (mass/ volume)Ordered By: Anoop Blackmon on 09-08-2024 Potassium (Unsp spec) [Mass/Vol] 4.7 mmol/L 3.3-5.1 [facility] Prothrombin Time w/INRon INR Coag (PPP) [Relative time] 2.9 {INR} Normal [facility] Comment on above: Performed By: #### L 100.0100, L500.2500, L300.3900, L3300.4400 ####[facility] [address] [place], [place], [phone] PT Coag (PPP) [Time] 30.7 s High 11.7-14.9 [facility] Comment on above: Performed By: #### L 100.0100, L500.2500, L300.3900, L3300.4400 ####[facility] [address] [place], [address] Prothrombin timeOrdered By: Anoop Blackmon on 09-08-2024 PT Coag (PPP) [Time] 30.7 s High 11.7-14.9 [facility] RBC Auto (Bld) [#/Vol]Ordere d By: Anoop Blackmon on 09-08-2024 RBC (Bld) [#/Vol] 4.40 10*6/uL 4.2-5.4 [facility] Serum creatinine measurement (mass/volume)Ordered By: Anoop Blackmon on 09-08-2024 Creatinine [Mass/Vol] 1.00 mg/dL 0.70-1.20 [facility] Serum glucose measurement (m ass/volume)Ordered By: Anoop Blackmon on 09-08-2024 Glucose [Mass/Vol] 149 mg/dL High 70-99 [facility] Serum or plasma calcium viktoria urement (mass/volume)Ordered By: Anoop Blackmon on 09-08-2024 Calcium [Mass/Vol] 8.9 mg/dL 7.6-11.0 [facility] Serum or plasma lamotrigine measurement (mass/volume)Ordered By: Anoop Blackmon on 09-08-2024 lamoTRIgine [Mass/Vol] 1.2 ug/mL Low 2.0-20.0 [facility] Comment on above: Detection Limit = 1. 0Performed at: [email or web address] [id number] Director: Brandon Wells MD, Phone: [phone] Serum or plasma urea nitroge n measurement (mass/volume)Ordered By: Anoop Blackmon on 09-08-2024 Urea nitrogen [Mass/Vol] 35 mg/dL High 4-19 [facility] Sodium levelOrdered By: Anooppierce Blackmon on 09-08-2024 Sodium [Moles/Vol] 138 mmol/L 133-145 [facility] White blood cell (WBC) count Ordered By: Anooppierce Blackmon on 09-08-2024 WBC (Bld) [#/Vol] 13.6 10*3/uL High 4.4-11.0 [facility] International normalized rat io (INR) calculationOrdered By: Cesar Douglas on 08-18-2024 INR Coag (Bld) [Relative time] 2.6 {INR} [facility] Prothrombin timeOrdered By: Cesar Douglas on 08-18-2024 PT Coag (PPP) [Time] 28.1 s High 11.7-14.9 [facility] International normalized rat io (INR) calculationOrdered By: Eckerman Douglas on 07-19-2024 INR Coag (Bld) [Relative time] 2.2 {INR} [facility] Prothrombin timeOrdered By: Eckerman Douglas on 07-19-2024 PT Coag (PPP) [Time] 25.3 s High 11.7-14.9 [facility] Cardiology Visit Reporton Cardiology Visit Report [facility] [address] [place] [address] OFFICE VISIT Date of Service: 07/01/24 MR#: [id number] Acct: [id number] Name: EZRA GONZALEZ Rep #: [id number] : 1935 Provider: Dr. Cesar Cole MD Age/Sex: 89/F Location: [facility] Status: Signed HPI HPI History of Present [...] atrial fibrillation. She is a reside at [facility]. 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 Normal [facility] International normalized rat io (INR) calculationOrdered By: Chucky Ochoa on 06-16-2024 INR Coag (Bld) [Relative time] 2.4 {INR} [facility] Prothrombin timeOrdered By: Chucky Ochoa on 06-16-2024 PT Coag (PPP) [Time] 26.6 s High 11.7-14.9 [facility] Absolute lymphocyte countOrd ered By: Chucky Ochoa on 06-09-2024 Lymphocytes Auto (Unsp spec) [#/Vol] 2.06 10*3/uL 0.83-4.51 [facility] Absolute neutrophil countOrd ered By: Chucky Ochoa on 06-09-2024 Neutrophils (Bld) [#/Vol] 5.6 10*3/uL 2.0-7.7 [facility] Anion gap in Serum or Plasma Ordered By: Chucky Ochoa on 06-09-2024 Anion gap [Moles/Vol] 13 mmol/L 5-15 [facility] Automated lymphocyte count a s percentage of total leukocytesOrdered By: Chucky Ochoa on 06-09-2024 Lymphocytes/100 WBC Auto (Unsp spec) 23.0 % - [facility] BUN/creatinine ratioOrdered By: Chucky Ochoa on 06-09-2024 Urea nitrogen/Creatinine [Mass ratio] 21.5 mg/mg High 10-20 [facility] Basophil percentageOrdered B y: Chucky Ochoa on 06-09-2024 Basophils/100 WBC (Bld) 0.6 % 0-1 [facility] Carbon dioxide, total [Moles /volume] in Central venous bloodOrdered By: Chucky Ochoa on 06-09-2024 CO2 [Moles/Vol] 22.4 mmol/L 21.0-32.0 [facility] Chloride assayOrdered By: Costa Ochoa on 06-09-2024 Chloride [Moles/Vol] 108 mmol/L 98-108 [facility] Eosinophil percentageOrdered By: Chucky Ochoa on 06-09-2024 Eosinophils/100 WBC (Bld) 4.8 % 0-5 [facility] Erythrocyte distribution wid th ratioOrdered By: Chucky Ochoa on 06-09-2024 Erythrocyte distribution width (RBC) [Ratio] 14.6 % 11.6-14.6 [facility] Erythrocyte distribution wid th standard deviationOrdered By: Chucky Ochoa on 06-09-2024 Erythrocyte distribution width (RBC) [Entitic vol] 49.2 fL High 35.1-43.9 [facility] Erythrocyte distribution width (RBC) [Ratio] 49.2 fl High 35.1-43.9 [facility] GFR/1.73 sq M.predicted sonia g non-blacks MDRD (S/P/Bld) [Vol rate/Area]Ordered By: Chucky Ochoa on 06-09-2024 Estimated GFR (MDRD) Non-Af Amer 59 Low >60 [facility] Comment on above: mL/min/1.73m2 CKD-EP I Creatinine Equation (2020) Glomerular filtration rate ( GFR) estimation/1.73 sq m using serum, plasma, or whole bOrdered By: Chucky Ochoa on 06-09-2024 GFR/1.73 sq M.predicted among non-blacks MDRD (S/P/Bld) [Vol rate/Area] 59 mL/min/{1.73_m2} Low >60 [facility] Comment on above: mL/min/1.73m2 CKD-EP I Creatinine Equation (2020) Hematocrit Auto (Bld) [Volum e fraction]Ordered By: Chucky Ochoa on 06-09-2024 Hematocrit (Bld) [Volume fraction] 38.3 % 37-47 [facility] Hemoglobin A1c percentageOrd ered By: Chucky Ochoa on 06-09-2024 HbA1c (Bld) [Mass fraction] 6.5 % >5.7 [facility] Hemoglobin measurementOrdere d By: Chucky Ochoa on 06-09-2024 Hemoglobin (Bld) [Mass/Vol] 12.4 g/dL 12.0-15.0 [facility] Immature granulocytes/100 WB C Auto (Bld)Ordered By: Chucky Ochoa on 06-09-2024 Immature granulocytes/100 WBC (Bld) 0.200 % 0.0-0.9 [facility] Comment on above: IG% - Immature Granu locytes (promyelocytes, myelocytes and metamyelocytes) > 1% indicates that a LEFT SHIFT is Present. Lymphocytes Auto (Unsp spec) [#/Vol]Ordered By: Chucky Ochoa on 06-09-2024 Lymphocytes (Bld) [#/Vol] 2.06 10*3/uL 0.83-4.5 1 [facility] Lymphocytes/100 WBC Auto (Un sp spec)Ordered By: Chucky Ochoa on 06-09-2024 Lymphocytes/100 WBC (Bld) 23.0 % 19-41 [facility] MCV (mean corpuscular volume ) determinationOrdered By: Chucky Ochoa on 06-09-2024 MCV (RBC) [Entitic vol] 91.8 fL 81-99 [facility] Mean corpuscular hemoglobin (MCH) determinationOrdered By: Chucky Ochoa on 06-09-2024 MCH (RBC) [Entitic mass] 29.7 pg 27.0-32.0 [facility] Mean corpuscular hemoglobin concentration (MCHC) determinationOrdered By: Chucky Ochoa on 06-09-2024 MCHC (RBC) [Mass/Vol] 32.4 g/dL 32-36 [facility] Mean platelet volume determi nationOrdered By: Chucky Ochoa on 06-09-2024 Platelet mean volume (Bld) [Entitic vol] 10.2 fL 6.2-12.0 [facility] Monocyte percentageOrdered B y: Chucky Ochoa on 06-09-2024 Monocytes/100 WBC (Bld) 8.6 % 0-10 [facility] Neutrophil percentageOrdered By: Chucky Ochoa on 06-09-2024 Neutrophils/100 WBC (Bld) 62.8 % 47-70 [facility] Nucleated red blood cell per centageOrdered By: Chucky Ochoa on 06-09-2024 Nucleated RBC/100 WBC (Bld) [Ratio] 0 % 0-5 [facility] Platelet countOrdered By: Costa Ochoa on 06-09-2024 Platelets (Bld) [#/Vol] 323 10*3/uL 150-450 [facility] Potassium (Unsp spec) [Mass/ Vol]Ordered By: Chucky Ochoa on 06-09-2024 Potassium [Moles/Vol] 4.7 mmol/L 3.3-5.1 [facility] Potassium measurement (mass/ volume)Ordered By: Chucky Ochoa on 06-09-2024 Potassium (Unsp spec) [Mass/Vol] 4.7 mmol/L 3.3-5.1 [facility] RBC Auto (Bld) [#/Vol]Ordere d By: Chucky Ochoa on 06-09-2024 RBC (Bld) [#/Vol] 4.17 10*6/uL Low 4.2-5.4 [facility] Serum creatinine measurement (mass/volume)Ordered By: Chucky Ochoa on 06-09-2024 Creatinine [Mass/Vol] 0.94 mg/dL 0.70-1.20 [facility] Serum glucose measurement (m ass/volume)Ordered By: Chucky Ochoa on 06-09-2024 Glucose [Mass/Vol] 137 mg/dL High 70-99 [facility] Serum or plasma calcium viktoria urement (mass/volume)Ordered By: Chucky Ochoa on 06-09-2024 Calcium [Mass/Vol] 8.9 mg/dL 7.6-11.0 [facility] Serum or plasma urea nitroge n measurement (mass/volume)Ordered By: Chucky Ochoa on 06-09-2024 Urea nitrogen [Mass/Vol] 20 mg/dL High 4-19 [facility] Sodium levelOrdered By: Dru Ochoa on 06-09-2024 Sodium [Moles/Vol] 143 mmol/L 133-145 [facility] White blood cell (WBC) count Ordered By: Chucky Ochoa on 06-09-2024 WBC (Bld) [#/Vol] 9.0 10*3/uL 4.4-11.0 [facility] INR Coag (BldC) [Relative ti me]Ordered By: Cesar Cole on 05-19-2024 INR Coag (Bld) [Relative time] 2.9 {INR} [facility] Comment on above: Critical Value > 4.0 International normalized rat io (INR) measurement by fingerstickOrdered By: Cesar Cole on 05-19-2024 INR Coag (BldC) [Relative time] 2.9 [facility] Comment on above: Critical Value > 4.0 PT Coag (Bld) [Time]Ordered By: Cesar Cole on 05-19-2024 Bedside Prothrombin Time 30.4 SEC High 11.7-14.9 [facility] Whole blood prothrombin time Ordered By: Cesar Cole on 05-19-2024 PT Coag (Bld) [Time] 30.4 s High 11.7-14.9 [facility] Serum or plasma lamotrigine measurement (mass/volume)Ordered By: Anant Juarez on 05-12-2024 lamoTRIgine [Mass/Vol] 1.8 ug/mL Low 2.0-20.0 [facility] Comment on above: Detection Limit = 1. 0Performed at: [facility] [id number] Director: Brandon Wells MD, Phone: [phone] Venous blood ammonia measure mentOrdered By: Anant Juarez on 05-12-2024 Ammonia (P) [Moles/Vol] 17.0 umol/L 11-32 [facility] lamoTRIgine [Mass/Vol]Ordere d By: Anant Juarez on 05-12-2024 Lamotrigine (Lamictal) Level 1.8 ug/mL Low 2.0-20.0 [facility] Comment on above: Detection Limit = 1. 0Performed at: [employer] [id number] Director: Brandon Wells MD, Phone: [phone] Neurology Visit Reporton Neurology Visit Report [facility] [address], [address] [place] [address] OFFICE VISIT Date of Service: 05/10/24 MR#: [id number] Acct: [id number] Name: EZRA GONZALEZ Rep #: [id number] : 1935 Provider: Dr. Anant baez MD Age/Sex: 88/F Location: [facility]. 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 She has become lost while driving [...] nature. Th (more content not included)... Normal [facility] INR Coag (BldC) [Relative ti me]Ordered By: Cesar Cole on 05-05-2024 INR Coag (Bld) [Relative time] 2.5 {INR} [facility] Comment on above: Critical Value > 4.0 PT Coag (Bld) [Time]Ordered By: Cesar Cole on 05-05-2024 Bedside Prothrombin Time 26.9 SEC High 11.7-14.9 [facility] International normalized rat io (INR) calculationOrdered By: Chucky Ochoa on 04-28-2024 INR Coag (Bld) [Relative time] 3.4 {INR} [facility] Prothrombin timeOrdered By: Chucky Ochoa on 04-28-2024 PT Coag (PPP) [Time] 35.4 s High 11.7-14.9 [facility] International normalized rat io (INR) calculationOrdered By: Chucky Ochoa on 04-14-2024 INR Coag (Bld) [Relative time] 3.0 {INR} [facility] Prothrombin timeOrdered By: Chucky Ochoa on 04-14-2024 PT Coag (PPP) [Time] 31.4 s High 11.7-14.9 [facility] Blood urea nitrogen (BUN)/cr eatinine ratioOrdered By: Chucky Ochoa on 04-09-2024 Urea nitrogen/Creatinine [Mass ratio] 13.5 mg/mg 10-20 [facility] Carbon dioxide measurementOr dered By: Chucky Ochoa on 04-09-2024 CO2 [Moles/Vol] 28.0 mmol/L 21.0-32.0 [facility] Chloride measurementOrdered By: Chucky Ochoa on 04-09-2024 Chloride [Moles/Vol] 106 mmol/L 98-107 [facility] Estimated glomerular filtrat ion rate (GFR) AmericanOrdered By: Chucky Ochoa on 04-09-2024 Estimated GFR (MDRD) Amer 70 mL/min >60 [facility] Comment on above: GFR Calc Glomerular filtration rate ( GFR) estimationOrdered By: Chucky Ochoa on 04-09-2024 Estimated GFR (MDRD) Non-Af Amer 58 mL/min Low >60 [facility] Comment on above: Non- GFR Calc Glucose measurementOrdered B y: Chucky Ochoa on 04-09-2024 Glucose [Mass/Vol] 116 mg/dL High 74-106 [facility] Comment on above: Fasting Glucose resu lt from 100 to 125 mg/dL suggests IMPAIRED HOMEOSTASIS per A.D.A. criteria. Potassium measurementOrdered By: Chucky Ochoa on 04-09-2024 Potassium [Moles/Vol] 4.3 mmol/L 3.5-5.1 [facility] Serum anion gap measurementO rdered By: Chucky Ochoa on 04-09-2024 Anion gap [Moles/Vol] 3 mmol/L Low 5-15 [facility] Serum or plasma calcium viktoria urement (mass/volume)Ordered By: Chucky Ochoa on 04-09-2024 Calcium [Mass/Vol] 8.8 mg/dL 8.5-10.1 [facility] Serum or plasma creatinine m easurement (mass/volume)Ordered By: Chucky Ochoa on 04-09-2024 Creatinine [Mass/Vol] 0.96 mg/dL 0.55-1.02 [facility] Comment on above: The validity of the calculated GFR & GFRAA in patients over 70 years has not been determined. Clinical correlation is essential. Serum or plasma urea nitroge n measurement (mass/volume)Ordered By: Chucky Ochoa on 04-09-2024 Urea nitrogen [Mass/Vol] 13 mg/dL 7-18 [facility] Sodium levelOrdered By: Dru Ochoa on 04-09-2024 Sodium [Moles/Vol] 137 mmol/L 136-145 [facility] International normalized rat io (INR) calculationOrdered By: Chucky Ochoa on 04-06-2024 INR Coag (Bld) [Relative time] 2.6 {INR} [facility] Prothrombin timeOrdered By: Chucky Ochoa on 04-06-2024 PT Coag (PPP) [Time] 28.8 s High 11.7-14.9 [facility] INR Coag (BldC) [Relative ti me]Ordered By: Chucky Ochoa on 04-05-2024 INR Coag (Bld) [Relative time] 3.5 {INR} [facility] Comment on above: Critical Value > 4.0 PT Coag (Bld) [Time]Ordered By: Chucky Ochoa on 04-05-2024 Bedside Prothrombin Time 35.4 SEC High 11.7-14.9 [facility] International normalized rat io (INR) calculationOrdered By: Chucky Ochoa on 03-29-2024 INR Coag (Bld) [Relative time] 1.5 {INR} [facility] Prothrombin timeOrdered By: Chucky Ochoa on 03-29-2024 PT Coag (PPP) [Time] 17.9 s High 11.7-14.9 [facility] INR Coag (BldC) [Relative ti me]Ordered By: Chucky Ochoa on 03-26-2024 INR Coag (Bld) [Relative time] 3.4 {INR} [facility] Comment on above: Critical Value > 4.0 PT Coag (Bld) [Time]Ordered By: Chucky Ochoa on 03-26-2024 Bedside Prothrombin Time 34.4 SEC High 11.7-14.9 [facility] INR Coag (BldC) [Relative ti me]Ordered By: Chucky Ochoa on 03-25-2024 INR Coag (Bld) [Relative time] 3.8 {INR} [facility] Comment on above: Critical Value > 4.0 PT Coag (Bld) [Time]Ordered By: Chucky Ochoa on 03-25-2024 Bedside Prothrombin Time 37.8 SEC High 11.7-14.9 [facility] International normalized rat io (INR) calculationOrdered By: Chucky Ochoa on 03-19-2024 INR Coag (Bld) [Relative time] 3.0 {INR} [facility] Prothrombin timeOrdered By: Chucky Ochoa on 03-19-2024 PT Coag (PPP) [Time] 30.7 s High 11.7-14.9 [facility] INR Coag (BldC) [Relative ti me]Ordered By: Chucky Ochoa on 03-17-2024 INR Coag (Bld) [Relative time] 3.3 {INR} [facility] Comment on above: Critical Value > 4.0 PT Coag (Bld) [Time]Ordered By: Chucky Ochoa on 03-17-2024 Bedside Prothrombin Time 34.2 SEC High 11.7-14.9 [facility] INR Coag (BldC) [Relative ti me]Ordered By: Chucky Ochoa on 03-10-2024 INR Coag (Bld) [Relative time] 2.4 {INR} [facility] Comment on above: Critical Value > 4.0 PT Coag (Bld) [Time]Ordered By: Chucky Ochoa on 03-10-2024 Bedside Prothrombin Time 25.4 SEC High 11.7-14.9 [facility] International normalized rat io (INR) calculationOrdered By: Chucky Ochoa on 03-08-2024 INR Coag (Bld) [Relative time] 1.8 {INR} [facility] Prothrombin timeOrdered By: Chucky Ochoa on 03-08-2024 PT Coag (PPP) [Time] 21.1 s High 11.7-14.9 [facility] INR Coag (BldC) [Relative ti me]Ordered By: Chucky Ochoa on 03-04-2024 INR Coag (Bld) [Relative time] 1.8 {INR} [facility] Comment on above: Critical Value > 4.0 PT Coag (Bld) [Time]Ordered By: Chucky Ochoa on 03-04-2024 Bedside Prothrombin Time 20.2 SEC High 11.7-14.9 [facility] INR Coag (BldC) [Relative ti me]Ordered By: Chucky Ochoa on 02-05-2024 INR Coag (Bld) [Relative time] 2.2 {INR} [facility] Comment on above: Critical Value > 4.0 PT Coag (Bld) [Time]Ordered By: Chucky Ochoa on 02-05-2024 Bedside Prothrombin Time 22.8 SEC High 11.7-14.9 [facility] Lamotrigine (Lamictal) Level on 09-25-2023 LAMOTRIGINE 4.0 ug/mL Normal 2.0-20.0 [facility] Comment on above: Result Comment: Dete ction Limit = 1.0 Performed at: [facility] Lab[address] [id number] Janitor Supervisor: Brandon Wells MD, Phone: [phone] Performed By: #### L 3300.4400, L500.4050, L503.5510, L100.0500 #### [facility] [address] [place], [address] Ammoniaon 09-22-2023 Ammonia (P) [Moles/Vol] 13.0 umol/L Normal 11-32 [facility] Comment on above: Performed By: #### L 3300.4400, L500.4050, L503.5510, L100.0500 #### [facility] [address] [place], [address] CBC-Complete Blood Cnt No Di ffon 09-22-2023 Erythrocyte distribution width (RBC) [Ratio] 14.4 % Normal 11.6-14.6 [facility] Comment on above: Performed By: #### L 3300.4400, L500.4050, L503.5510, L100.0500 #### [facility] [address] [place], [address] Hematocrit (Bld) [Volume fraction] 41.1 % Normal 37-47 [facility] Comment on above: Performed By: #### L 3300.4400, L500.4050, L503.5510, L100.0500 #### [facility] [address] [place], [address] Hemoglobin (Bld) [Mass/Vol] 12.9 g/dL Normal 12.0-15.0 [facility] Comment on above: Performed By: #### L 3300.4400, L500.4050, L503.5510, L100.0500 #### [facility] [address] [place], [address] MCH (RBC) [Entitic mass] 28.3 pg Normal 27.0-32.0 [facility] Comment on above: Performed By: #### L 3300.4400, L500.4050, L503.5510, L100.0500 #### [facility] [address] [place], [address] MCHC (RBC) [Mass/Vol] 31.4 g/dL Low 32-36 [facility] Comment on above: Performed By: #### L 3300.4400, L500.4050, L503.5510, L100.0500 #### [facility] [address] [place], [address] MCV (RBC) [Entitic vol] 90.1 fL Normal 81-99 [facility] Comment on above: Performed By: #### L 3300.4400, L500.4050, L503.5510, L100.0500 #### [facility] [address] [place], [address] Platelet mean volume (Bld) [Entitic vol] 10.9 fL Normal 6.2-12.0 [facility] Comment on above: Performed By: #### L 3300.4400, L500.4050, L503.5510, L100.0500 #### [facility] [address] [place], [address] Platelets (Bld) [#/Vol] 402 10*3/uL Normal 150-450 [facility] Comment on above: Performed By: #### L 3300.4400, L500.4050, L503.5510, L100.0500 #### [facility] [address] [place], [address] RBC (Bld) [#/Vol] 4.56 10*6/uL Normal 4.2-5.4 [facility] Comment on above: Performed By: #### L 3300.4400, L500.4050, L503.5510, L100.0500 #### [facility] [address] [place], [address] RDW SD 47.4 fl High 35.1-43.9 [facility] Comment on above: Performed By: #### L 3300.4400, L500.4050, L503.5510, L100.0500 #### [facility] [address] [place], [address] WBC (Bld) [#/Vol] 8.5 10*3/uL Normal 4.4-11.0 [facility] Comment on above: Performed By: #### L 3300.4400, L500.4050, L503.5510, L100.0500 #### [facility] [address] [place], [address] Comprehensive Metabolic Prof oron 09-22-2023 Albumin [Mass/Vol] 3.5 g/dL Normal 3.2-5.0 [facility] Comment on above: Performed By: #### L 3300.4400, L500.4050, L503.5510, L100.0500 #### [facility] [address] [place], [address] Albumin/Globulin [Mass ratio] 1.0 {ratio} Normal 0.9-2.4 [facility] Comment on above: Performed By: #### L 3300.4400, L500.4050, L503.5510, L100.0500 #### [facility] [address] [place], [address] ALK P 105 U/L Normal 45-117 [facility] Comment on above: Performed By: #### L 3300.4400, L500.4050, L503.5510, L100.0500 #### [facility] [address] [place], [address] ALT [Catalytic activity/Vol] 14 U/L Normal 13-56 [facility] Comment on above: Performed By: #### L 3300.4400, L500.4050, L503.5510, L100.0500 #### [facility] [address] [place], [address] AST [Catalytic activity/Vol] 20 U/L Normal 15-37 [facility] Comment on above: Performed By: #### L 3300.4400, L500.4050, L503.5510, L100.0500 #### [facility] [address] [place], [address] Bilirubin [Mass/Vol] 0.30 mg/dL Normal 0.20-1.00 [facility] Comment on above: Result Comment: For patients on eltrombopag therapy, use of Dimension Cornelius TBIL is not recommended. Performed By: #### L 3300.4400, L500.4050, L503.5510, L100.0500 #### [facility] [address] [place], [address] BUN/CRE 14.9 RATIO Normal 10-20 [facility] Comment on above: Performed By: #### L 3300.4400, L500.4050, L503.5510, L100.0500 #### [facility] [address] [place], [address] CA,Total 9.2 mg/dL Normal 8.5-10.1 [facility] Comment on above: Performed By: #### L 3300.4400, L500.4050, L503.5510, L100.0500 #### [facility] [address] [place], [address] Chloride [Moles/Vol] 106 mmol/L Normal 98-107 [facility] Comment on above: Performed By: #### L 3300.4400, L500.4050, L503.5510, L100.0500 #### [facility] [address] [place], [address] CO2 [Moles/Vol] 29.0 mmol/L Normal 21.0-32.0 [facility] Comment on above: Performed By: #### L 3300.4400, L500.4050, L503.5510, L100.0500 #### [facility] [address] [place], [address] Creatinine [Mass/Vol] 1.21 mg/dL High 0.55-1.02 [facility] Comment on above: Result Comment: The validity of the calculated GFR GFRAA in patients over 70 years has not been determined. Clinical correlation is essential. Performed By: #### L 3300.4400, L500.4050, L503.5510, L100.0500 #### [facility] [address] [place], [address] EST GFR - AA 54 mL/min Low >60 [facility] Comment on above: Result Comment: Afri can Malagasy GFR Calc Performed By: #### L 3300.4400, L500.4050, L503.5510, L100.0500 #### [facility] [address] [place], [address] GAP 4 Low 5-15 [facility] Comment on above: Performed By: #### L 3300.4400, L500.4050, L503.5510, L100.0500 #### [facility] [address] [place], [address] GFR/1.73 sq M.predicted among non-blacks MDRD (S/P/Bld) [Vol rate/Area] 45 mL/min/{1.73_m2} Low >60 [facility] Comment on above: Result Comment: Non- GFR Calc Performed By: #### L 3300.4400, L500.4050, L503.5510, L100.0500 #### [facility] [address] [place], [address] Globulin (S) [Mass/Vol] 3.6 g/dL Normal 2.2-4.2 [facility] Comment on above: Performed By: #### L 3300.4400, L500.4050, L503.5510, L100.0500 #### [facility] [address] [place], [address] Glucose [Mass/Vol] 123 mg/dL High 74-106 [facility] Comment on above: Result Comment: Fast ing Glucose result from 100 to 125 mg/dL suggests IMPAIRED HOMEOSTASIS per A.D.A. criteria. Performed By: #### L 3300.4400, L500.4050, L503.5510, L100.0500 #### [facility] [address] [place], [address] Potassium [Moles/Vol] 5.5 mmol/L High 3.5-5.1 [facility] Comment on above: Performed By: #### L 3300.4400, L500.4050, L503.5510, L100.0500 #### [facility] [address] [place], [address] Sodium [Moles/Vol] 139 mmol/L Normal 136-145 [facility] Comment on above: Performed By: #### L 3300.4400, L500.4050, L503.5510, L100.0500 #### [facility] [address] [place], [address] T PROT 7.1 g/dL Normal 6.4-8.2 [facility] Comment on above: Performed By: #### L 3300.4400, L500.4050, L503.5510, L100.0500 #### [facility] [address] [place], [address] Urea nitrogen [Mass/Vol] 18 mg/dL Normal 7-18 [facility] Comment on above: Performed By: #### L 3300.4400, L500.4050, L503.5510, L100.0500 #### [facility] [address] [place], [place], [address] Neurology Visit Reporton Neurology Visit Report [facility] [address] [place], [place] [address] OFFICE VISIT Date of Service: 09/22/23 MR#: [id number] Acct: [id number] Name: EZRA GONZALEZ Rep #: [id number] : 1935 Provider: Dr. 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 She has become lost while driving [...] be positi (more content not included)... Normal [facility] Capillary blood internationa l normalized ratio (INR)Ordered By: Alexandra Hagen on 06-30-2023 INR Coag (BldC) [Relative time] 2.4 [facility] Comment on above: Critical Value > 4.0 Whole blood prothrombin time Ordered By: Alexandra Hagen on 06-30-2023 PT Coag (Bld) [Time] 24.6 s 11.7-14.9 [facility] CARECOORDon 2023 [facility] Patient Choice Patient Name: EZRA GONZALEZ [facility] 1935 [facility] Site of Care Admission Date: 06/16/2023 01:38 PM Patient Name: EZRA GONZALEZ Location: [address] Date of : 1935 ------- Placement Information ------- Referral Type:Home Health Care Services - New Referral ID:[id number] Provider Name:[facility] Address 1:[address] [place] [address] Address 2: City:[place] Selection Factors:Patient/Famil y Choice State:[place] Normal [facility] updated SW, pt i s requesting COT [...] pt order lunch. Notified TONIO, RN and speaking unit assembler. . [facility] I SPOKE WITH DONOVAN, HEAVY MEDIA OPERATOR AT [facility]. THEY CAN TAKE PT BACK TODAY. THEY CAN PROVIDE TRANSPORTATION BACK TO FACILITY AROUND 3 PM. AWARE PT WILL NEED PT AT FACILITY, THEY USE [facility], DID LET LIAISON NOW. WENT TO [...] CHAT WITH CONNIE PEREZ REGARDING THIS. Normal [facility] Laboratory - Chemistry and C hemistry - challengeon 06-20-2023 Glucose [Mass/Vol] 125 mg/dL High 70 - 100 mg/dL [facility] - Coagulationon 0 06-20-2023 PT Coag (Bld) [Time] 11.3 s 9.0 - 12.0 s [facility] No Panel Informationon 06-19 Interpretation and review of laboratory results Abnormal [facility] Performed by: [facility], [address] [place] [address] CLIA ID: [id number] [facility] Radiology Study observation (narrative) [facility] chalo PROTHROMBIN TIMEon INR Coag (PPP) [Relative time] 1.1 {INR} Normal 0.9-1.1 [facility] Comment on above: Result Comment: Reji [...] Myocardial Infarction Performed By: #### L [id number] ####Inspector Final Assembly Conveyor Line: ALEXANDRA BUSTAMANTE ([phone])[facility] ([facility])[address] [place] [address] PT Coag (PPP) [Time] 11.3 s Normal 9.0-12.0 [facility] Comment on above: Performed By: #### L [id number] ####Inspector Final Assembly Conveyor Line: ALEXANDRA BUSTAMANTE ([phone])[facility] ([facility])[address] [place] [address] PT Coag (Bld) [Time]on 06-19 INR Coag (PPP) [Relative time] 1.1 {INR} 0.9 - 1.[address] [facility] Comment on above: Recommended Anticoag [...] CRISTINA cot to Josep MCARTHUR with all [facility] Progress Note Called report to Maryanne at [facility] Progress Note [facility] Anticoagulatio n Management Service (RIA) Inpatient Warfarin Consult HPI: zEra Gonzalez is a 87 y.o. female admitted on 06/16/2023 for Closed displaced fracture of medial condyle of right humerus, initial encounter [S42.006M] History reviewed. No pertinent past medical history. [...] patient can be classified as high risk ([id number] = 8). 2. Monitor for s/s of bleeding and drug interactions. Will adjust dose accordingly 3. RIA will manage while inpatient Dc Lombardi, JpD Candidate Jp BolanosD, [facility] RIA is available daily [phone] via [employer]. If no response on [employer] then please page [phone]. Normal [facility] BASIC METABOLIC PANELon 03-2 Anion gap [Moles/Vol] 11 mmol/L Normal 3-13 [facility] Comment on above: Performed By: #### L AB15 ####Inspector Final Assembly Conveyor Line: ALEXANDRA BUSTAMANTE ([phone])[facility] ([facility])[address] [place] [address] Calcium [Mass/Vol] 8.3 mg/dL Low 8.4-10.4 [facility] Comment on above: Performed By: #### L AB15 ####Inspector Final Assembly Conveyor Line: ALEXANDRA BUSTAMANTE ([phone])[facility] ([facility])[address] [place] [address] Chloride [Moles/Vol] 102 mmol/L Normal 98-107 [facility] Comment on above: Performed By: #### L AB15 ####Inspector Final Assembly Conveyor Line: ALEXANDRA BUSTAMANTE ([phone])[facility] ([facility])[address] [place] [address] CO2 [Moles/Vol] 21 mmol/L Low 22-30 [facility] Comment on above: Performed By: #### L AB15 ####Inspector Final Assembly Conveyor Line: ALEXANDRA BUSTAMANTE ([phone])[facility] ([facility])[address] [place] [address] Creatinine [Mass/Vol] 0.84 mg/dL Normal 0.52-1.04 [facility] Comment on above: Performed By: #### L AB15 ####Inspector Final Assembly Conveyor Line: ALEXANDRA BUSTAMANTE ([phone])[facility])[address] [place] [address] GLOMERULAR FILTRATION RATE ML/MIN/1.73 SQ M.PREDICTED 67.4 mL/min/1.73m*2 Normal >60.0 [facility] Comment on above: Result Comment: Calc ulation based on the Chronic Kidney Disease Epidemiology Collaboration (CKD-EPI) equation refit without adjustment for race Performed By: #### L AB15 ####Inspector Final Assembly Conveyor Line: ALEXANDRA BUSTAMANTE ([phone])[facility] ([facility])[address] [place] [address] Glucose [Mass/Vol] 263 mg/dL High 70-100 [facility] Comment on above: Performed By: #### L AB15 ####Inspector Final Assembly Conveyor Line: ALEXANDRA BUSTAMANTE ([phone])[facility] ([facility])[address] [place] [address] Potassium [Moles/Vol] 4.7 mmol/L Normal 3.5-5.1 [facility] Comment on above: Performed By: #### L AB15 ####Inspector Final Assembly Conveyor Line: ALEXANDRA BUSTAMANTE ([phone])[facility] ([facility])[address] [place] [address] Sodium [Moles/Vol] 133 mmol/L Low 135-145 [facility] Comment on above: Performed By: #### L AB15 ####Inspector Final Assembly Conveyor Line: ALEXANDRA BUSTAMANTE ([phone])[facility] ([facility])[address] [place] [address] Urea nitrogen [Mass/Vol] 27 mg/dL High 7-17 [facility] Comment on above: Performed By: #### L AB15 ####Inspector Final Assembly Conveyor Line: ALEXANDRA BUSTAMANTE ([id number])[facility] ([facility])[address] [place] [address] Basic metabolic 1998 panelon 06-19-2023 Anion gap [Moles/Vol] 11 mmol/L 3 - 13 mmol/L [facility] Calcium [Mass/Vol] 8.3 mg/dL Low 8.4 - 10. 4 mg/dL [facility] Chloride [Moles/Vol] 102 mmol/L 98 - 10 7 mmol/L [facility] CO2 [Moles/Vol] 21 mmol/L Low 22 - 30 mmol/L [facility] Creatinine [Mass/Vol] 0.84 mg/dL 0.52 - 1.04 mg/dL [facility] GFR/1.73 sq M.predicted MDRD (S/P/Bld) [Vol rate/Area] 67.4 mL/min/{1.73_m2} - PINF [facility] Comment on above: Calculation based on the Chronic Kidney Disease Epidemiology Collaboration (CKD-EPI) equation refit without adjustment for race Glucose [Mass/Vol] 263 mg/dL High 70 - 100 mg/dL [facility] Interpretation and review of laboratory results Abnormal [facility] Potassium [Moles/Vol] 4.7 mmol/L 3.5 - 5.1 mmol/L [facility] Sodium [Moles/Vol] 133 mmol/L Low 135 - 145 mmol/L [facility] Urea nitrogen [Mass/Vol] 27 mg/dL High 7 - 17 mg/d L [facility] CARECOORDon 06-19-2023 [facility] S/P ORIF OF RIGHT ARM. WAITING FOR PT/OT EVALS FOR DC PLANNING. Normal [facility] CBC W Auto Differential pane l (Bld)Ordered By: Leona Thakur on 06-19-2023 Basophils (Bld) [#/Vol] 0.0 10*3/uL 0.0 - 0.2 10*3/uL [facility] Basophils/100 WBC (Bld) 0.2 % 0.0 - 2.0 % [facility] Eosinophils (Bld) [#/Vol] 0.0 10*3/uL 0. 0 - 0.5 10*3/uL [facility] Eosinophils/100 WBC (Bld) 0.0 % 0.0 - 6.0 % [facility] Erythrocyte distribution width (RBC) [Ratio] 13.6 % 11.5 - 15.0 % [facility] Hematocrit (Bld) [Volume fraction] 35.0 % 35.0 - 47.0 % [facility] Hemoglobin (Bld) [Mass/Vol] 11.4 g/dL Low 11.7 - 16.0 g/dL [facility] Immature granulocytes (Bld) [#/Vol] 0.1 10*3/uL High NINF - 0.1 10*3/uL [facility] Immature granulocytes/100 WBC (Bld) 0.6 % 0.0 - 2.0 % [facility] Interpretation and review of laboratory results Abnormal [facility] th Lymphocytes (Bld) [#/Vol] 0.8 10*3/uL Low 1. 0 - 4.3 10*3/uL [facility] Lymphocytes/100 WBC (Bld) 6.4 % Low 15 .0 - 45.0 % [facility] MCH (RBC) [Entitic mass] 28.6 pg 26. 0 - 34.[address] [facility] MCHC (RBC) [Mass/Vol] 32.6 % 30.5 - 36.0 % [facility] MCV (RBC) [Entitic vol] 87.9 fL 77.0 - 99.[address] [facility] Monocytes (Bld) [#/Vol] 0.6 10*3/uL 0.0 - 0.9 10*3/uL [facility] Monocytes/100 WBC (Bld) 4.6 % Low 5.0 - 13.0 % [facility] Neutrophils (Bld) [#/Vol] 11.2 10*3/uL High 1. 8 - 7.5 10*3/uL [facility] Neutrophils/100 WBC (Bld) 88.2 % High 38 .0 - 82.0 % [facility] Nucleated RBC/100 WBC (Bld) [Ratio] 0.0 % [facility] Platelet mean volume (Bld) [Entitic vol] 10.2 fL 9.0 - 12.[address] [facility] Platelets (Bld) [#/Vol] 260 10*3/uL 140 - 440 10*3/uL [facility] RBC (Bld) [#/Vol] 3.98 10*6/uL 3.80 - 5.2 0 10*6/uL [facility] WBC (Bld) [#/Vol] 12.7 10*3/uL High 3.6 - 10.7 10*3/uL [facility] CBC WITH AUTO DIFFERENTIALon 06-19-2023 Basophils (Bld) [#/Vol] 0.0 10*3/uL Normal 0.0-0.2 [facility] Comment on above: Performed By: #### L [id number] ####Inspector Final Assembly Conveyor Line: ALEXANDRA BUSTAMANTE ([id number])[facility] ([facility])[address] [place] [address] [place] Basophils/100 WBC (Bld) 0.2 % Normal 0.0-2.0 S [facility] Comment on above: Performed By: #### L [id number] ####Inspector Final Assembly Conveyor Line: ALEXANDRA BUSTAMANTE ([phone])[facility])[address] [place] [address] Eosinophils (Bld) [#/Vol] 0.0 10*3/uL Normal 0.0-0.5 [facility] Comment on above: Performed By: #### L [id number] ####Inspector Final Assembly Conveyor Line: ALEXANDRA BUSTAMANTE ([id number])[facility])[address] [place] [address] Eosinophils/100 WBC (Bld) 0.0 % Normal 0.0-6.0 [facility] Comment on above: Performed By: #### L [id number] ####Inspector Final Assembly Conveyor Line: ALEXANDRA BUSTAMANTE ([phone])[facility])[address] [place] [address] Erythrocyte distribution width (RBC) [Ratio] 13.6 % Normal 11.5-15.0 [facility] Comment on above: Performed By: #### L [id number] ####Inspector Final Assembly Conveyor Line: ALEXANDRA BUSTAMANTE ([phone])[facility])[address] [place] [address] Hematocrit (Bld) [Volume fraction] 35.0 % Normal 35.0-47.0 [facility] Comment on above: Performed By: #### L [id number] ####Inspector Final Assembly Conveyor Line: ALEXANDRA BUSTAMANTE ([phone])[facility])[address] [place] [address] Hemoglobin (Bld) [Mass/Vol] 11.4 g/dL Low 11.7-16.0 [facility] Comment on above: Performed By: #### L [id number] ####Inspector Final Assembly Conveyor Line: ALEXANDRA BUSTAMANTE ([id number])[facility])[address] [place] [address] IMMATURE GRANS % 0.6 % Normal 0.0-2.0 [facility] Comment on above: Performed By: #### L [id number] ####Inspector Final Assembly Conveyor Line: ALEXANDRA BUSTAMANTE ([phone])[facility])[address] [place] [address] IMMATURE GRANS ABSOLUTE 0.1 10*3/uL High <0.1 [facility] Comment on above: Performed By: #### L [id number] ####Inspector Final Assembly Conveyor Line: ALEXANDRA BUSTAMANTE ([id number])[facility])[address] [place] [address] Lymphocytes (Bld) [#/Vol] 0.8 10*3/uL Low 1.0-4.3 [facility] Comment on above: Performed By: #### L [id number] ####Inspector Final Assembly Conveyor Line: ALEXANDRA BUSTAMANTE ([id number])[address] Lymphocytes/100 WBC (Bld) 6.4 % Low 15.0-45.0 [facility] Comment on above: Performed By: #### L [id number] ####Inspector Final Assembly Conveyor Line: ALEXANDRA BUSTAMANTE ([id number])[facility])[address] [place] [address] MCH (RBC) [Entitic mass] 28.6 pg Normal 26.0-34.0 [facility] Comment on above: Performed By: #### L [id number] ####Inspector Final Assembly Conveyor Line: ALEXANDRA BUSTAMANTE ([id number])[address] MCHC 32.6 % Normal 30.5-36.0 [facility] Comment on above: Performed By: #### L [id number] ####Inspector Final Assembly Conveyor Line: ALEXANDRA BUSTAMANTE ([id number])[address] MCV (RBC) [Entitic vol] 87.9 fL Normal 77.0-99.0 [facility] Comment on above: Performed By: #### L [id number] ####Inspector Final Assembly Conveyor Line: ALEXANDRA BUSTAMANTE ([id number])[facility] ([facility])[address] [place] [address] [place] Monocytes (Bld) [#/Vol] 0.6 10*3/uL Normal 0.0-0.9 [facility] Comment on above: Performed By: #### L [id number] ####Inspector Final Assembly Conveyor Line: ALEXANDRA BUSTAMANTE ([id number])[facility] ([facility])[address] [place] [address] [place] Monocytes/100 WBC (Bld) 4.6 % Low 5.0-13.0 [facility] Comment on above: Performed By: #### L [id number] ####Inspector Final Assembly Conveyor Line: ALEXANDRA BUSTAMANTE ([id number])[facility] ([facility])[address] [place] [address] NEUTROPHILS ABSOLUTE 11.2 10*3/uL High 1.8-7.5 [facility] Comment on above: Performed By: #### L [id number] ####Inspector Final Assembly Conveyor Line: ALEXANDRA BUSTAMANTE ([id number])[facility] ([facility])[address] [place] [address] [place] Neutrophils/100 WBC (Bld) 88.2 % High 38.0-82.0 [facility] Comment on above: Performed By: #### L [id number] ####Inspector Final Assembly Conveyor Line: ALEXANDRA BUSTAMANTE ([id number])[facility] ([facility])[address] [place] [address] NRBC 0.0 /100 WBCs Normal 0.0-2.0 [facility] Comment on above: Performed By: #### L [id number] ####Inspector Final Assembly Conveyor Line: ALEXANDRA BUSTAMANTE ([id number])[facility] ([facility])[address] [place] [address] [place] Platelet mean volume (Bld) [Entitic vol] 10.2 fL Normal 9.0-12.7 [facility] Comment on above: Performed By: #### L [id number] ####Inspector Final Assembly Conveyor Line: ALEXANDRA BUSTAMANTE ([id number])[facility] ([facility])[address] [place] [address] [place] Platelets (Bld) [#/Vol] 260 10*3/uL Normal 140-440 [facility] Comment on above: Performed By: #### L [id number] ####Inspector Final Assembly Conveyor Line: ALEXANDRA BUSTAMANTE ([id number])[facility] ([facility])[address] [place] [address] RBC (Bld) [#/Vol] 3.98 10*6/uL Normal 3.80-5.20 [facility] Comment on above: Performed By: #### L [id number] ####Inspector Final Assembly Conveyor Line: ALEXANDRA BUSTAMATNE ([id number])[facility] ([facility] [place] [address] WBC (Bld) [#/Vol] 12.7 10*3/uL High 3.6-10.7 [facility] Comment on above: Performed By: #### L [id number] ####Inspector Final Assembly Conveyor Line: ALEXANDRA BUSTAMANTE ([id number])[facility] ([facility])[address] [place] [address] Laboratory - Chemistry and C hemistry - challengeon 06-19-2023 Glucose [Mass/Vol] 220 mg/dL High 70 - 100 mg/dL [facility] Glucose [Mass/Vol] 137 mg/dL High 70 - 100 mg/dL [facility] Glucose [Mass/Vol] 141 mg/dL High 70 - 100 mg/dL [facility] Glucose [Mass/Vol] 177 mg/dL High 70 - 100 mg/dL [facility] Laboratory - Coagulationon 0 06-19-2023 PT Coag (Bld) [Time] 11.3 s 9.0 - 12.0 s [facility] No Panel Informationon 06-18 Interpretation and review of laboratory results Abnormal [facility] th Performed by: [facility], [address] [place] [address] CLIA ID: [id number] [facility] Interpretation and review of laboratory results Abnormal [place] th Performed by: [facility], [address] [place] [address] CLIA ID: [id number] [facility] Interpretation and review of laboratory results Abnormal [facility] Performed by: [facility], [address] [place] [address] CLIA ID: [id number] [facility] Interpretation and review of laboratory results Abnormal [facility] Performed by: [facility], [address] [place] [address] CLIA ID: [id number] [facility] Radiology Study observation (narrative) Trina isabel Radiology Study observation (narrative) [place] Radiology Study observation (narrative) [facility] Rad[facility] Study observation (narrative) [place] PROTHROMBIN TIMEon INR Coag (PPP) [Relative time] 1.1 {INR} Normal 0.9-1.1 [facility] Comment on above: Result Comment: Reji [...] Myocardial Infarction Performed By: #### L [id number] ####Inspector Final Assembly Conveyor Line: ALEXANDRA BUSTAMANTE ([id number])[facility] ([facility])[address] [place] [address] PT Coag (PPP) [Time] 11.3 s Normal 9.0-12.0 [facility] Comment on above: Performed By: #### L [id number] ####Inspector Final Assembly Conveyor Line: ALEXANDRA BUSTAMANTE ([phone])[facility] ([facility])[address] [place] [address] [place] PT Coag (Bld) [Time]on 06-18 INR Coag (PPP) [Relative time] 1.1 {INR} 0.9 - 1.[address] [facility] Comment on above: Recommended Anticoag [...] Interpretation and review of laboratory results Normal [facility] Progress Noteon 06-19-2023 Progress Note [facility] Anticoagulatio n Management Service (RIA) Inpatient Warfarin Consult HPI: Ezra Gonzalez is a 87 y.o. female admitted on 06/16/2023 for Closed displaced fracture of medial condyle of right humerus, initial encounter [S42.936Y] History reviewed. No pertinent past medical history. [...] patient can be classified as high risk ([id number] = 8). 2. Monitor for s/s of bleeding and drug interactions. Will adjust dose accordingly 3. RIA will manage while inpatient Dc Lombardi, JpD Candidate Toshia Sanches, JpD, [facility] RIA is available daily [phone] via [employer]. If no response on [employer] then please page [phone]. Normal [facility] BASIC METABOLIC PANELon 05-30 Anion gap [Moles/Vol] 10 mmol/L Normal 3-13 [facility] Comment on above: Performed By: #### L [id number] ####Inspector Final Assembly Conveyor Line: ALEXANDRA BUSTAMANTE ([id number])[facility] ([address] Calcium [Mass/Vol] 8.8 mg/dL Normal 8.4-10.4 [facility] Comment on above: Performed By: #### L [id number] ####Inspector Final Assembly Conveyor Line: ALEXANDRA BUSTAMANTE ([id number])[facility] ([facility])[address] [place] [address] Chloride [Moles/Vol] 98 mmol/L Normal 98-107 [facility] Comment on above: Performed By: #### L [id number] ####Inspector Final Assembly Conveyor Line: ALEXANDRA BUSTAMANTE ([id number])[facility] ([facility])[address] [place] [address] CO2 [Moles/Vol] 25 mmol/L Normal 22-30 [facility] Comment on above: Performed By: #### L [id number] ####Inspector Final Assembly Conveyor Line: ALEXANDRA BUSTAMANTE ([id number])[facility] ([facility])[address] [place] [address] Creatinine [Mass/Vol] 0.83 mg/dL Normal 0.52-1.04 [facility] Comment on above: Performed By: #### L [id number] ####Inspector Final Assembly Conveyor Line: ALEXANDRA BUSTAMANTE ([id number])[facility] ([facility])[address] [place] [address] GLOMERULAR FILTRATION RATE ML/MIN/1.73 SQ M.PREDICTED 68.3 mL/min/1.73m*2 Normal >60.0 [facility] Comment on above: Result Comment: Calc ulation based on the Chronic Kidney Disease Epidemiology Collaboration (CKD-EPI) equation refit without adjustment for race Performed By: #### L AB15 ####Inspector Final Assembly Conveyor Line: ALEXANDRA BUSTAMANTE ([id number])[facility] ([facility])[address] [place] [address] Glucose [Mass/Vol] 163 mg/dL Normal [facility] Comment on above: Performed By: #### L AB15 ####Inspector Final Assembly Conveyor Line: ALEXANDRA BUSTAMANTE ([id number])[facility] ([facility])[address] [place] [address] Order Comment: If no t done within the last 3 mos Performed By: #### L [id number] ####Inspector Final Assembly Conveyor Line: ALEXANDRA [id number])[facility] ([facility])[address] [place] [address] Potassium [Moles/Vol] 4.6 mmol/L Normal 3.5-5.1 [facility] Comment on above: Performed By: #### L [id number] ####Inspector Final Assembly Conveyor Line: ALEXANDRA BUSTAMANTE ([id number])[facility] ([facility])[address] [place] [address] Sodium [Moles/Vol] 133 mmol/L Low 135-145 [facility] Comment on above: Performed By: #### L AB15 ####Inspector Final Assembly Conveyor Line: ALEXANDRA BUSTAMANTE ([id number])[facility] ([facility])[address] [place] [address] Urea nitrogen [Mass/Vol] 24 mg/dL High 7-17 [facility] Comment on above: Performed By: #### L [id number] ####Inspector Final Assembly Conveyor Line: ALEXANDRA BUSTAMANTE ([id number])[facility] ([facility] [place] [address] Basic metabolic 1998 panelon 06-18-2023 Anion gap [Moles/Vol] 10 mmol/L 3 - 13 mmol/L [facility] Calcium [Mass/Vol] 8.8 mg/dL 8.4 - 10. 4 mg/dL [facility] Chloride [Moles/Vol] 98 mmol/L 98 - 10 7 mmol/L [facility] CO2 [Moles/Vol] 25 mmol/L 22 - 30 mmol/L [facility] Creatinine [Mass/Vol] 0.83 mg/dL 0.52 - 1.04 mg/dL [facility] GFR/1.73 sq M.predicted MDRD (S/P/Bld) [Vol rate/Area] 68.3 mL/min/{1.73_m2} - PINF [facility] Comment on above: Calculation based on the Chronic Kidney Disease Epidemiology Collaboration (CKD-EPI) equation refit without adjustment for race Glucose [Mass/Vol] 163 mg/dL High 70 - 100 mg/dL [facility] Interpretation and review of laboratory results Abnormal [facility] Potassium [Moles/Vol] 4.6 mmol/L 3.5 - 5.1 mmol/L [facility] Sodium [Moles/Vol] 133 mmol/L Low 135 - 145 mmol/L [facility] Urea nitrogen [Mass/Vol] 24 mg/dL High 7 - 17 mg/d L [facility] CARECOORDon 06-18-2023 [facility] Care Managment Initial Assessment Date: 06/18/2023 Patient Name: Ezra Gonzalez : 1935 Patient Information Source of Information: Patient Cognition/Language: WFL - Within Functional Limits Permission given to speak with patient access services representative/caregi saira as indicated: No Confirmation of Payer with patient/family: Yes Payer Name: [facility] : No Confirmation of Primary Care [...] CONTINUE TO FOLLOW. Shikha Gray RN Normal [facility] CBC W Auto Differential pane l [...] % Low 15 .0 - 45.0 % [facility] MCH (RBC) [Entitic mass] 28.0 pg [...] 75.8 % 38 .0 - 82.0 % [facility] Nucleated RBC/100 WBC (Bld) [Ratio] 0.0 % [facility] Platelet mean volume (Bld) [Entitic vol] 10.1 fL 9.0 - 12.[address] [facility] Platelets (Bld) [#/Vol] 375 10*3/uL 140 - 440 10*3/uL [facility] RBC (Bld) [#/Vol] 4.96 10*6/uL 3.80 - 5.2 0 10*6/uL [facility] WBC (Bld) [#/Vol] 15.5 10*3/uL High 3.6 - 10.7 10*3/uL [facility] CBC WITH AUTO DIFFERENTIALon 06-18-2023 Basophils (Bld) [#/Vol] 0.1 10*3/uL Normal 0.0-0.2 [facility] Comment on above: Performed By: #### L [id number] ####Inspector Final Assembly Conveyor Line: ALEXANDRA BUSTAMANTE ([id number])[facility])[address] [place] [address] Basophils/100 WBC (Bld) 0.4 % Normal 0.0-2.0 S [facility] Comment on above: Performed By: #### L [id number] ####Inspector Final Assembly Conveyor Line: ALEXANDRA BUSTAMANTE ([id number])[facility])[address] [place] [address] Eosinophils (Bld) [#/Vol] 0.2 10*3/uL Normal 0.0-0.5 [facility] Comment on above: Performed By: #### L [id number] ####Inspector Final Assembly Conveyor Line: ALEXANDRA BUSTAMANTE ([id number])[facility])[address] [place] [address] Eosinophils/100 WBC (Bld) 1.3 % Normal 0.0-6.0 [facility] Comment on above: Performed By: #### L [id number] ####Inspector Final Assembly Conveyor Line: ALEXANDRA [id number])[facility])[address] [place] [address] Erythrocyte distribution width (RBC) [Ratio] 13.8 % Normal 11.5-15.0 [facility] Comment on above: Performed By: #### L [id number] ####Inspector Final Assembly Conveyor Line: ALEXANDRA BUSTAMANTE ([id number])[facility])[address] [place] [address] Hematocrit (Bld) [Volume fraction] 44.1 % Normal 35.0-47.0 [facility] Comment on above: Performed By: #### L [id number] ####Inspector Final Assembly Conveyor Line: ALEXANDRA BUSTAMANTE ([id number])[facility])[address] [place] [address] Hemoglobin (Bld) [Mass/Vol] 13.9 g/dL Normal 11.7-16.0 [facility] Comment on above: Performed By: #### L [id number] ####Inspector Final Assembly Conveyor Line: ALEXANDRA BUSTAMANTE ([id number])[facility])[address] [place] [address] IMMATURE GRANS % 0.4 % Normal 0.0-2.0 [facility] Comment on above: Performed By: #### L [id number] ####Inspector Final Assembly Conveyor Line: ALEXANDRA BUSTAMANTE ([id number])[facility])[address] [place] [address] IMMATURE GRANS ABSOLUTE 0.1 10*3/uL High <0.1 [facility] Comment on above: Performed By: #### L [id number] ####Inspector Final Assembly Conveyor Line: ALEXANDRA BUSTAMANTE ([id number])[facility])[address] [place] [address] Lymphocytes (Bld) [#/Vol] 2.0 10*3/uL Normal 1.0-4.3 [facility] Comment on above: Performed By: #### L [id number] ####Inspector Final Assembly Conveyor Line: ALEXANDRA BUSTAMANTE ([id number])[facility])[address] [place] [address] Lymphocytes/100 WBC (Bld) 13.1 % Low 15.0-45.0 [facility] Comment on above: Performed By: #### L [id number] ####Inspector Final Assembly Conveyor Line: ALEXANDRA BUSTAMANTE ([id number])[facility])[address] [place] [address] MCH (RBC) [Entitic mass] 28.0 pg Normal 26.0-34.0 [facility] Comment on above: Performed By: #### L [id number] ####Inspector Final Assembly Conveyor Line: ALEXANDRA BUSTAMANTE ([id number])[facility])[address] [place] [address] MCHC 31.5 % Normal 30.5-36.0 [facility] Comment on above: Performed By: #### L [id number] ####Inspector Final Assembly Conveyor Line: ALEXANDRA BUSTAMANTE ([id number])[address] MCV (RBC) [Entitic vol] 88.9 fL Normal 77.0-99.0 [facility] Comment on above: Performed By: #### L [id number] ####Inspector Final Assembly Conveyor Line: ALEXANDRA BUSTAMANTE ([id number])[facility])[address] [place] [address] Monocytes (Bld) [#/Vol] 1.4 10*3/uL High 0.0-0.9 [facility] Comment on above: Performed By: #### L [id number] ####Inspector Final Assembly Conveyor Line: ALEXANDRA BUSTAMANTE ([id number])[facility])[address] [place] [address] Monocytes/100 WBC (Bld) 9.0 % Normal 5.0-13.0 [facility] Comment on above: Performed By: #### L [id number] ####Inspector Final Assembly Conveyor Line: ALEXANDRA BUSTAMANTE ([id number])[address] NEUTROPHILS ABSOLUTE 11.8 10*3/uL High 1.8-7.5 [facility] Comment on above: Performed By: #### L [id number] ####Inspector Final Assembly Conveyor Line: ALEXANDRA [id number])[facility] ([facility])[address] [place] [address] Neutrophils/100 WBC (Bld) 75.8 % Normal 38.0-82.0 [facility] Comment on above: Performed By: #### L [id number] ####Inspector Final Assembly Conveyor Line: ALEXADNRA BUSTAMANTE ([id number])[facility] ([facility])[address] [place] [address] NRBC 0.0 /100 WBCs Normal 0.0-2.0 [facility] Comment on above: Performed By: #### L [id number] ####Inspector Final Assembly Conveyor Line: ALEXANDRA BUSTAMANTE ([id number])[facility] ([facility])[address] [place] [address] Platelet mean volume (Bld) [Entitic vol] 10.1 fL Normal 9.0-12.7 [facility] Comment on above: Performed By: #### L [id number] ####Inspector Final Assembly Conveyor Line: ALEXANDRA BUSTAMANTE ([id number])[facility] ([facility])[address] [place] [address] Platelets (Bld) [#/Vol] 375 10*3/uL Normal 140-440 [facility] Comment on above: Performed By: #### L [id number] ####Inspector Final Assembly Conveyor Line: ALEXANDRA BUSTAMANTE ([id number])[facility] ([facility])[address] [place] [address] RBC (Bld) [#/Vol] 4.96 10*6/uL Normal 3.80-5.20 [facility] Comment on above: Performed By: #### L [id number] ####Inspector Final Assembly Conveyor Line: ALEXANDRA BUSTAMANTE ([id number])[facility] ([facility])[address] [place] [address] WBC (Bld) [#/Vol] 15.5 10*3/uL High 3.6-10.7 [facility] Comment on above: Performed By: #### L [id number] ####Inspector Final Assembly Conveyor Line: ALEXANDRA BUSTAMANTE ([id number])[facility] ([facility])[address] [place] [address] HEMOGLOBIN A1Con 06-18-2023 HbA1c (Bld) [Mass fraction] 7.3 % High <5.7 [facility] Comment on above: Order Comment: If no t done within the last 3 mos Result Comment: Norm al less than 5.7% Prediabetes 5.7% to 6.4% Diabetes 6.5% or higher --HgbA1C levels may not be accurate in patients who have renal disease, received recent blood transfusions, are anemic, or who have dyshemoglobinemia. Performed By: #### L [id number] ####Inspector Final Assembly Conveyor Line: ALEXANDRA BUSTAMANTE ([id number])[facility] ([facility])[address] [place] [address] [place] IDNon 06-18-2023 IDN The patient is Moderately Stable - Low risk of patient condition declining or worsening The patient's goals for the shift include rest and pain control The clinical goals for the shift include rest and pain control Normal [facility] Laboratory - Chemistry and C hemistry - challengeon 06-18-2023 Glucose [Mass/Vol] 189 mg/dL High 70 - 100 mg/dL [facility] Procalcitonin [Mass/Vol] 0.06 ng/mL 0.0 0 - 0.09 ng/mL [facility] Glucose [Mass/Vol] 121 mg/dL High 70 - 100 mg/dL [facility] Average glucose Estimated from glycated hemoglobin (Bld) [Mass/Vol] 163 mg/dL [facility] Laboratory - Hematology and Cell countson 06-18-2023 HbA1c (Bld) [Mass fraction] 7.3 % High NINF - 5.7 % [facility] Comment on above: Normal less than 5.7 % Prediabetes 5.7% to 6.4% Diabetes 6.5% or higher --HgbA1C levels may not be accurate in patients who have renal disease, received recent blood transfusions, are anemic, or who have dyshemoglobinemia. No Panel Informationon 06-17 Interpretation and review of laboratory results Abnormal [facility] th Performed by: [facility], [address] [place] [address] CLIA ID: [id number] [facility] There is no interpretation needed for this exam. IMAGING Interpretation and review of laboratory results Abnormal [facility] Performed by: [facility], [address] [place] [address] CLIA ID: [id number] [facility] Interpretation and review of laboratory results Abnormal [facility] Radiology Study observation (narrative) [facility] Anish isabel Radiology Study observation (narrative) [place] Nursing Noteon 06-18-2023 Nursing Note Pt states no need to contact family. RN on floor states she will call pt's son,. Normal [facility] Nursing Note Patients wallet and watch locked up with security. OR notified patient states she has latex allergy Patients purse and glasses taken to pacu Normal [facility] Op Noteon 06-18-2023 Op Note [facility] MAIN OR [address] [facility] [address] Dept: [phone] Loc: [phone] Operative Report Patient Name: Ezra Gonzalez Date of : 1935 Date of Surgery: 06/18/23 Pre-operative diagnosis: Right intra-articular distal humerus fracture Post-operative diagnosis: Same Procedure(s): Open reduction internal fixation of right intra-articular distal humerus fracture Surgeon: Benitez Givens M.D. Digital X Ray Service Engineer(s): Lexa Aparicio M.D. Anesthesia: General and Regional [...] as well as medical complications such as [place], stroke, PE, DVT, and even . Pt [...] Lexa Aparicio MD at 06/18/23, 7:[address] [facility] Op Note Date: 06/16/2023 - 06/18/2023 Location: [facility] OR Name: Ezra Gonzalez, : 1935, Diagnosis Pre-op Diagnosis * Closed displaced fracture of medial condyle of right humerus, initial encounter [S42.301A] Post-op Diagnosis * Closed displaced fracture of medial condyle of right humerus, initial encounter [S42.263F] Procedures OPEN REDUCTION INTERNAL FIXATION RIGHT DISTAL HUMERUS 71429 - [place] OPTX HUMERAL SHFT FX W/PLATE/SCREWS W/WOCERCLAGE Surgeons * Benitez Givens - Primary Procedure Summary Anesthesia: * No anesthesia type entered * ASA: III Estimated Blood Loss: Minimal Drains: * None in log * Staff: Bush Hog Operator: Vivian Herrera RN Scrub Person: Linda Alvarez [...] in 2 weeks -Ortho to follow. Normal [facility] PROCALCITONIN TESTon 024 PROCALCITONIN 0.06 ng/mL Normal 0.00-0.09 [facility] Comment on above: Result Comment: PUMA Leal COMMENTS: PCT <0.50 = Low risk of severe sepsis and/or septic shock. PCT >2.00 = High risk of severe sepsis and/or septic shock. Performed By: #### L [id number] ####Inspector Final Assembly Conveyor Line: ALEXANDRA BUSTAMANTE ([id number])[facility] ([employer] Procalcitonin [Mass/Vol]on 0 06-18-2023 Interpretation and review of laboratory results Normal [facility] PCT <0.50 = Low risk of severe sepsis and/or septic shock. PCT >2.00 = High risk of severe sepsis and/or septic shock. [facility] Progress Noteon 06-18-2023 Progress Note Nutrition rescreen completed. Chart reviewed. Patient to be monitored and followed by the diet agricultural service technician. Ele Butcher, NICA [facility] Progress Note OCCUPATIONAL THERAPY [facility] Name/MRN: Ezra Gonzalez ([id number]) Date: 06/18/2023 OT eval and treat order received. Patient chart reviewed. Per Ortho note, Plan for ORIF od R distal humerus. Will hold evaluation till after surgery. Louisa Cespedes, LAUREN Normal [facility] Progress Note PHYSICAL THERAPY [facility] Name/MRN: Ezra Gonzalez ([id number]) Date: 06/18/2023 PT orders received and chart reviewed. Per ortho note, Plan for ORIF R distal humerus. Will hold and attempt following surgery. Maryanne Neumann, PT Normal [facility] ECG 12-LEADon 06-17-2023 ECG 12-LEAD IMPRESSION: Atrial fibrillation Probable left ventricular hypertrophy No previous ECG for comparison Electronically Signed On 06-17-2023 06:39:12 EDT by Thong Francois Normal [facility] ED Nursing Noteon 06-17-2023 ED Nursing Note Patient resting in bed at this time, equal unlabored respirations noted and no acute distress, call león within reach Di Reyna RN 06/17/23 1153 Normal [facility] ED Nursing Note Pt O2 desaturating t o mid 80s after receiving dilaudid IV. Pt placed on 2L NC and immediately back up to 95%. notified Alia Foster, JAYME 06/17/23 1031 Normal [facility] ED Nursing Note Pt upset with [...] US IV line. Juanjo Pringle RN 06/16/23 9445 Normal [facility] Laboratory - Chemistry and C hemistry - challengeon 06-17-2023 Glucose [Mass/Vol] 137 mg/dL High 70 - 100 mg/dL [facility] Laboratory - Coagulationon 0 06-17-2023 PT Coag (Bld) [Time] 14.5 s High 9.0 - 12.0 s [facility] No Panel Informationon 06-16 Interpretation and review of laboratory results Abnormal [facility] Performed by: [facility], [address] [place] [address] CLIA ID: [id number] [facility] Atrial fibrillation Probable left ventricular hypertrophy No previous ECG for comparison Electronically Signed On 06-17-2023 06:39:12 EDT by Thong Arvizu D O - 06/17/2023 IMPRESSION: Atrial fibrillation Probable left ventricular hypertrophy No previous ECG for comparison Electronically Signed On 06-17-2023 06:39:12 EDT by Thong Francois [facility] Radiology Study observation (narrative) [facility] No Panel InformationOrdered By: Thong Francois on 06-17-2023 P Shock 0 degrees [facility] [employer] Work Phone: [place] Interval 0 ms [facility] [employer] Work Phone: QRS Shock -24 degrees [facility] [employer] Work Phone: [phone] QRSD Interval 103 ms [employer] Work Phone: [phone] QT Interval 382 ms [facility] [employer] Work Phone: QTC Interval 442 ms [facility] [employer] Work Phone: T Wave Shock 31 degrees [facility] [employer] Work Phone: [facility] [employer] Work Phone: Nursing Noteon 06-17-2023 Nursing Note Patient home medication list updated, provider made aware. Normal [facility] PROTHROMBIN TIMEon INR Coag (PPP) [Relative time] 1.4 {INR} High 0.9-1.1 [facility] Comment on above: Result Comment: Reji [...] Infarction Performed By: #### L [id number] #### Inspector Final Assembly Conveyor Line: ALEXANDRA BUSTAMANTE ([id number]) [facility] ([facility]) [address] [place] [address] PT Coag (PPP) [Time] 14.5 s High 9.0-12.0 [facility] Comment on above: Performed By: #### L [id number] #### Inspector Final Assembly Conveyor Line: ALEXANDRA BUSTAMANTE ([id number]) [facility] ([employer]) [address] [place] [address] [place] PT Coag (Bld) [Time]on 06-16 INR Coag (PPP) [Relative time] 1.4 {INR} High 0.9 - 1.[address] [facility] Comment on above: Recommended Anticoag [...] Interpretation and review of laboratory results Abnormal [facility] Progress Noteon 06-17-2023 Progress Note Due to OR availability, case cancelled for today. Moved to tomorrow, 06/17. Ok for diet today. NPO @[place]. Keep splint C/D/I. Evette Viera MD Orthopaedic Surgery, PGY-5 [phone] Normal [facility] Vital signsOrdered By: Neeta Francois on 06-17-2023 Heart rate 80 /min bpm [facility] [employer] Work Phone: XR Chest Single viewon 06-16 No acute cardiopulmonary process identified. Other chronic findings as discussed. 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 [facility] [employer] Houston Chau MD - 06/17/2023 Patient Name: EZRA GONZALEZ : 1935 [id number] Exam Date/Time: 06/17/2023 00:38 Procedure: XR CHEST [...] Electronically Signed Date/Time: 06/17/2023 12:44 AM EDT [facility] Radiology Study observation (narrative) [facility] XR Chest Single viewOrdered By: Houston Chau on 06-17-[address] [facility] Work Phone: Absolute lymphocyte countOrd ered By: Lali Pimentel on 06-16-2023 Lymphocytes Auto (Unsp spec) [#/Vol] 3.86 10*3/uL 0.83-4.51 [facility] Automated lymphocyte count a s percentage of total leukocytesOrdered By: Lali Pimentel on 06-16-2023 Lymphocytes/100 WBC Auto (Unsp spec) 23.0 % 19-41 [facility] BASIC METABOLIC PANELon 05-29 Anion gap [Moles/Vol] 7 mmol/L Normal 3-13 [facility] Comment on above: Performed By: #### L [id number] ####Inspector Final Assembly Conveyor Line: ALEXANDRA BUSTAMANTE ([id number])[facility] ([employer] Calcium [Mass/Vol] 8.6 mg/dL Normal 8.4-10.4 [facility] Comment on above: Performed By: #### L [id number] ####Inspector Final Assembly Conveyor Line: ALEXANDRA BUSTAMANTE ([id number])[facility] ([facility])[address] [place] [address] Chloride [Moles/Vol] 99 mmol/L Normal 98-107 [facility] Comment on above: Performed By: #### L [id number] ####Inspector Final Assembly Conveyor Line: ALEXANDRA BUSTAMANTE ([id number])[facility] ([facility])[address] [place] [address] CO2 [Moles/Vol] 29 mmol/L Normal 22-30 [facility] Comment on above: Performed By: #### L [id number] ####Inspector Final Assembly Conveyor Line: ALEXANDRA BUSTAMANTE ([phone])[facility] ([facility])[address] [place] [address] Creatinine [Mass/Vol] 0.79 mg/dL Normal 0.52-1.04 [facility] Comment on above: Performed By: #### L [id number] ####Inspector Final Assembly Conveyor Line: ALEXANDRA BUSTAMANTE ([phone])[facility] ([facility])[address] [place] [address] [place] GLOMERULAR FILTRATION RATE ML/MIN/1.73 SQ M.PREDICTED 72.5 mL/min/1.73m*2 Normal >60.0 [facility] Comment on above: Result Comment: Calc ulation based on the Chronic Kidney Disease Epidemiology Collaboration (CKD-EPI) equation refit without adjustment for race Performed By: #### L [id number] ####Inspector Final Assembly Conveyor Line: ALEXANDRA BUSTAMANTE ([id number])[facility] ([facility])[address] [place] [address] [place] Glucose [Mass/Vol] 186 mg/dL High 70-100 [facility] Comment on above: Performed By: #### L [id number] ####Inspector Final Assembly Conveyor Line: ALEXANDRA BUSTAMANTE ([phone])[facility] ([facility])[address] [place] [address] Potassium [Moles/Vol] 4.5 mmol/L Normal 3.5-5.1 [facility] Comment on above: Performed By: #### L [id number] ####Inspector Final Assembly Conveyor Line: ALEXANDRA BUSTAMANTE ([id number])[facility] ([facility])[address] [place] [address] Sodium [Moles/Vol] 136 mmol/L Normal 135-145 [facility] Comment on above: Performed By: #### L [id number] ####Inspector Final Assembly Conveyor Line: ALEXANDRA BUSTAMANTE ([phone])[facility] ([facility])[address] [place] [address] Urea nitrogen [Mass/Vol] 26 mg/dL High 7-17 [facility] Comment on above: Performed By: #### L [id number] ####Inspector Final Assembly Conveyor Line: ALEXANDRA BUSTAMANTE ([id number])[facility] ([facility])[address] [place] [address] BLOOD TYPE AND SCREEN GELon 06-16-2023 ABO GROUPING A Normal [facility] Comment on above: Performed By: #### L [id number] ####Inspector Final Assembly Conveyor Line: ALEXANDRA BUSTAMANTE ([id number])[facility]OD [facility] ([facility])[address] [place] [address] RH TYPE IN BLOOD Positive Normal [facility] Comment on above: Performed By: #### L [id number] ####Inspector Final Assembly Conveyor Line: ALEXANDRA BUSTAMANTE ([id number])[facility] ([facility])[address] [place] [address] Basic metabolic 1998 panelon 06-16-2023 Anion gap [Moles/Vol] 7 mmol/L 3 - 13 mmol/L [facility] Calcium [Mass/Vol] 8.6 mg/dL 8.4 - 10. 4 mg/dL [facility] Chloride [Moles/Vol] 99 mmol/L 98 - 10 7 mmol/L [facility] CO2 [Moles/Vol] 29 mmol/L 22 - 30 mmol/L [facility] Creatinine [Mass/Vol] 0.79 mg/dL 0.52 - 1.04 mg/dL [facility] GFR/1.73 sq M.predicted MDRD (S/P/Bld) [Vol rate/Area] 72.5 mL/min/{1.73_m2} - PINF [facility] Comment on above: Calculation based on the Chronic Kidney Disease Epidemiology Collaboration (CKD-EPI) equation refit without adjustment for race Glucose [Mass/Vol] 186 mg/dL High 70 - 100 mg/dL [facility] Interpretation and review of laboratory results Abnormal [facility] Potassium [Moles/Vol] 4.5 mmol/L 3.5 - 5.1 mmol/L [facility] Sodium [Moles/Vol] 136 mmol/L 135 - 145 mmol/L [facility] Urea nitrogen [Mass/Vol] 26 mg/dL High 7 - 17 mg/d L [facility] Basophil percentageOrdered B y: Lali Pimentel on 06-16-2023 Basophils/100 WBC (Bld) 0.4 % 0-1 [facility] Chloride [Moles/Vol] 104 mmol/L 98-107 [facility] Eosinophils/100 WBC (Bld) 1.3 % 0-5 [facility] Glucose [Mass/Vol] 191 mg/dL 74-106 [facility] Comment on above: Fasting Glucose resu lt greater than or equal to 126 mg/dL suggests DIABETES MELLITUS per A.D.A. criteria. Hemoglobin (Bld) [Mass/Vol] 13.6 g/dL 12.0-15.0 [facility] Monocytes/100 WBC (Bld) 7.0 % 0-10 [facility] Neutrophils (Bld) [#/Vol] 11.4 10*3/uL 2.0-7.7 [facility] Neutrophils/100 WBC (Bld) 67.8 % 47-70 [facility] Potassium [Moles/Vol] 3.4 mmol/L 3.5-5.1 [facility] Sodium [Moles/Vol] 140 mmol/L 136-145 [facility] WBC (Bld) [#/Vol] 16.8 10*3/uL 4.4-11.0 [facility] Blood type and Crossmatch pa ro (Bld)on 06-16-2023 Blood group antibody screen GEL Ql Negative [facility] CBC W Auto Differential pane l (Bld)on 06-16-2023 Basophils (Bld) [#/Vol] 0.0 10*3/uL 0.0 - 0.2 10*3/uL [facility] Basophils/100 WBC (Bld) 0.2 % 0.0 - 2.0 % [facility] Eosinophils (Bld) [#/Vol] 0.0 10*3/uL 0. 0 - 0.5 10*3/uL [facility] Eosinophils/100 WBC (Bld) 0.0 % 0.0 - 6.0 % [facility] Erythrocyte distribution width (RBC) [Ratio] 13.6 % 11.5 - 15.0 % [facility] Hematocrit (Bld) [Volume fraction] 38.9 % 35.0 - 47.0 % [facility] Hemoglobin (Bld) [Mass/Vol] 12.8 g/dL 11.7 - 16.0 g/dL [facility] Immature granulocytes (Bld) [#/Vol] 0.1 10*3/uL High NINF - 0.1 10*3/uL [facility] Immature granulocytes/100 WBC (Bld) 0.6 % 0.0 - 2.0 % [facility] Interpretation and review of laboratory results Abnormal [facility] th Lymphocytes (Bld) [#/Vol] 1.1 10*3/uL 1. 0 - 4.3 10*3/uL [facility] Lymphocytes/100 WBC (Bld) 6.5 % Low 15 .0 - 45.0 % [facility] MCH (RBC) [Entitic mass] 29.1 pg 26. 0 - 34.[address] [facility] MCHC (RBC) [Mass/Vol] 32.9 % 30.5 - 36.0 % [facility] MCV (RBC) [Entitic vol] 88.4 fL 77.0 - 99.[address] [facility] Monocytes (Bld) [#/Vol] 0.7 10*3/uL 0.0 - 0.9 10*3/uL [facility] Monocytes/100 WBC (Bld) 4.4 % Low 5.0 - 13.0 % [facility] Neutrophils (Bld) [#/Vol] 14.3 10*3/uL High 1. 8 - 7.5 10*3/uL [facility] Neutrophils/100 WBC (Bld) 88.3 % High 38 .0 - 82.0 % [facility] Nucleated RBC/100 WBC (Bld) [Ratio] 0.0 % [facility] Platelet mean volume (Bld) [Entitic vol] 9.9 fL 9.0 - 12.[address] [facility] Platelets (Bld) [#/Vol] 357 10*3/uL 140 - 440 10*3/uL [facility] RBC (Bld) [#/Vol] 4.40 10*6/uL 3.80 - 5.2 0 10*6/uL [facility] WBC (Bld) [#/Vol] 16.2 10*3/uL High 3.6 - 10.7 10*3/uL [facility] CBC WITH AUTO DIFFERENTIALon 06-16-2023 Basophils (Bld) [#/Vol] 0.0 10*3/uL Normal 0.0-0.2 [facility] Comment on above: Performed By: #### L [id number] ####Inspector Final Assembly Conveyor Line: ALEXANDRA BUSTAMANTE ([id number])[facility] ([facility])[address] [place] [address] Basophils/100 WBC (Bld) 0.2 % Normal 0.0-2.0 [facility] Comment on above: Performed By: #### L [id number] ####Inspector Final Assembly Conveyor Line: ALEXANDRA BUSTAMANTE ([id number])[facility] ([facility])[address] [place] [address] Eosinophils (Bld) [#/Vol] 0.0 10*3/uL Normal 0.0-0.5 [facility] Comment on above: Performed By: #### L [id number] ####Inspector Final Assembly Conveyor Line: ALEXANDRA BUSTAMANTE ([phone])[facility] ([facility])[address] [place] [address] Eosinophils/100 WBC (Bld) 0.0 % Normal 0.0-6.0 [facility] Comment on above: Performed By: #### L [id number] ####Inspector Final Assembly Conveyor Line: ALEXANDRA BUSTAMANTE ([id number])[facility])[address] [place] [address] Erythrocyte distribution width (RBC) [Ratio] 13.6 % Normal 11.5-15.0 [facility] Comment on above: Performed By: #### L [id number] ####Inspector Final Assembly Conveyor Line: ALEXANDRA [id number])[facility])[address] [place] [address] Hematocrit (Bld) [Volume fraction] 38.9 % Normal 35.0-47.0 [facility] Comment on above: Performed By: #### L [id number] ####Inspector Final Assembly Conveyor Line: ALEXANDRA BUSTAMANTE ([id number])[facility])[address] [place] [address] Hemoglobin (Bld) [Mass/Vol] 12.8 g/dL Normal 11.7-16.0 [facility] Comment on above: Performed By: #### L [id number] ####Inspector Final Assembly Conveyor Line: ALEXANDRA BUSTAMANTE ([id number])[facility])[address] [place] [address] IMMATURE GRANS % 0.6 % Normal 0.0-2.0 [facility] Comment on above: Performed By: #### L [id number] ####Inspector Final Assembly Conveyor Line: ALEXANDRA BUSTAMANTE ([id number])[facility])[address] [place] [address] IMMATURE GRANS ABSOLUTE 0.1 10*3/uL High <0.1 [facility] Comment on above: Performed By: #### L [id number] ####Inspector Final Assembly Conveyor Line: ALEXANDRA BUSTAMANTE ([id number])[facility])[address] [place] [address] Lymphocytes (Bld) [#/Vol] 1.1 10*3/uL Normal 1.0-4.3 [facility] Comment on above: Performed By: #### L [id number] ####Inspector Final Assembly Conveyor Line: ALEXANDRA BUSTAMANTE ([id number])[facility])[address] [place] [address] Lymphocytes/100 WBC (Bld) 6.5 % Low 15.0-45.0 [facility] Comment on above: Performed By: #### L [id number] ####Inspector Final Assembly Conveyor Line: ALEXANDRA BUSTAMANTE ([id number])[facility])[address] [place] [address] MCH (RBC) [Entitic mass] 29.1 pg Normal 26.0-34.0 [facility] Comment on above: Performed By: #### L [id number] ####Inspector Final Assembly Conveyor Line: ALEXANDRA BUSTAMANTE ([id number])[facility])[address] [place] [address] MCHC 32.9 % Normal 30.5-36.0 [facility] Comment on above: Performed By: #### L [id number] ####Inspector Final Assembly Conveyor Line: ALEXANDRA BUSTAMANTE ([id number])[facility])[address] [place] [address] MCV (RBC) [Entitic vol] 88.4 fL Normal 77.0-99.0 [facility] Comment on above: Performed By: #### L [id number] ####Inspector Final Assembly Conveyor Line: ALEXANDRA BUSTAMANTE ([id number])[facility])[address] [place] [address] Monocytes (Bld) [#/Vol] 0.7 10*3/uL Normal 0.0-0.9 [facility] Comment on above: Performed By: #### L [id number] ####Inspector Final Assembly Conveyor Line: ALEXANDRA BUSTAMANTE ([id number])[facility])[address] [place] [address] Monocytes/100 WBC (Bld) 4.4 % Low 5.0-13.0 [facility] Comment on above: Performed By: #### L [id number] ####Inspector Final Assembly Conveyor Line: ALEXANDRA BUSTAMANTE ([id number])[facility])[address] [place] [address] NEUTROPHILS ABSOLUTE 14.3 10*3/uL High 1.8-7.5 [facility] Comment on above: Performed By: #### L [id number] ####Inspector Final Assembly Conveyor Line: ALEXANDRA BUSTAMANTE ([id number])[facility])[address] [place] [address] Neutrophils/100 WBC (Bld) 88.3 % High 38.0-82.0 [facility] Comment on above: Performed By: #### L [id number] ####Inspector Final Assembly Conveyor Line: ALEXANDRA BUSTAMANTE ([id number])[facility] ([facility])[address] [place] [address] NRBC 0.0 /100 WBCs Normal 0.0-2.0 [facility] Comment on above: Performed By: #### L [id number] ####Inspector Final Assembly Conveyor Line: ALEXANDRA BUSTAMANTE ([id number])[facility])[address] [place] [address] Platelet mean volume (Bld) [Entitic vol] 9.9 fL Normal 9.0-12.7 [facility] Comment on above: Performed By: #### L [id number] ####Inspector Final Assembly Con[employer]or Line: ALEXANDRA BUSTAMANTE ([id number])[facility] ([facility])[address] [place] [address] Platelets (Bld) [#/Vol] 357 10*3/uL Normal 140-440 [facility] Comment on above: Performed By: #### L [id number] ####Inspector Final Assembly Conveyor Line: ALEXANDRA BUSTAMANTE ([id number])[facility] ([facility])[address] [place] [address] RBC (Bld) [#/Vol] 4.40 10*6/uL Normal 3.80-5.20 [facility] Comment on above: Performed By: #### L [id number] ####Inspector Final Assembly [employer]or Line: ALEXANDRA BUSTAMANTE ([id number])[facility])[address] [place] [address] WBC (Bld) [#/Vol] 16.2 10*3/uL High 3.6-10.7 [facility] Comment on above: Performed By: #### L [id number] ####Inspector Final Assembly [employer]or Line: ALEXANDRA BUSTAMANTE ([phone])[facility])[address] [place] [address] CT ELBOW RIGHT WO IV CONTRAS Ton [...] Injury (Pt [facility] with complaints of right elbow fracture. Patient was sent here for ortho consult. No pain on arrival. Arrives with right arm splinted.)Closed displaced fracture of medial condyle of right humerus, initial encounter Normal [facility] CT Elbow - right WO contrast on 06-16-2023 Impression: Extensively comminuted supracondylar humerus fracture. The fracture has multiple foci of articular extension to the lateral and central aspect of the condyle. Report Dictated on Electronically Signed By: Pastor Francisco MD Electronically Signed Date/Time: 06/16/2023 6:13 PM EDT [facility] [employer] Patient Name: EZRA GONZALEZ : 1935 [...] process fracture. Joint effusion. Decreased osseous mineralization. [facility] Pastor Francisco MD - 06/16/2023 Patient [...] Electronically Signed Date/Time: 06/16/2023 6:13 PM EDT [facility] Radiology Study observation (narrative) Trina isabel Consulton 06-16-2023 Consult Ortho Consult Patient: Ezra Gonzalez Date of : 1935 Acct: [id number] PCP: No primary care provider on file. Date of Admission: 06/16/2023 Date of Service: Pt seen/examined on 06/16/2023 Chief Complaint: right distal humerus fracture History Of Present Illness: This is a 87 y.o. right hand dominant female who presents with a right distal humerus fracture after a fall at home. Patient originally presented to [facility] where she was splinted and transferred to [facility] ED for ortho eval. Patient denies numbness, tingling, or weakness. Denies pain elsewhere and denies head trauma or LOC. 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. Patient has prior ortho surgery history of bilateral TKAs and right shoulder surgery, left carpal tunnel release, all at [facility]. Denies alcohol, tobacco, drug use. Patient [...] RH, LAB (more content not included)... Normal [facility] Determination of erythrocyte mean corpuscular volume (MCV)Ordered By: Lali Pimentel on 06-16-2023 MCV (RBC) [Entitic vol] 90.3 fL 81-99 [facility] ED Provider Noteon ED Provider Note Emergency Department Encounter [facility] EMERGENCY DEPT Patient: Ezra Gonzalez : 1935 Date of Evaluation: 06/16/2023 ED Supervising Physician: Sea Conde MD I personally saw Ezra Gonzalez [...] for clarification.) Sae Conde MD Acute Care [email or web address] Sae Conde MD 06/16/[address] [facility] ED Provider Note EMERGENCY DEPARTMENT ENCOUNTER Pt Name: Ezra Gonzalez Birthdate 1935 Date of evaluation: 06/16/2023 ED Provider: ANDIA Ruiz CHIEF COMPLAINT Chief Complaint Patient presents with Arm Injury Pt arrives [facility] with complaints of [...] injury anywhere else. Patient was evaluated at [facility] emergency department prior to arrival and was noted to have a distal humerus fracture. Patient was transferred to [facility] ED for orthopedic consultation. Patient [...] 4.4 (*) (more content not included)... Normal [facility] Erythrocyte distribution wid th ratioOrdered By: Lali Pimentel on 06-16-2023 Erythrocyte distribution width (RBC) [Ratio] 13.3 % 11.6-14.6 [facility] Erythrocyte distribution wid th standard deviationOrdered By: Lali Pimentel on 06-16-2023 Erythrocyte distribution width (RBC) [Entitic vol] 43.9 fL 35.1-43.9 [facility] Hematocrit Auto (Bld) [Volum e fraction]Ordered By: Lali Pimentel on 06-16-2023 Hematocrit (Bld) [Volume fraction] 42.6 % 37-47 [facility] Immature granulocytes/100 WB C Auto (Bld)Ordered By: Lali Pimentel on 06-16-2023 Immature granulocytes/100 WBC (Bld) 0.500 % 0.0-0.9 [facility] Comment on above: IG% - Immature Granu locytes (promyelocytes, myelocytes and metamyelocytes) > 1% indicates that a LEFT SHIFT is Present. Laboratory - Blood bankon ABO group Nom (Bld) A [facility] D Ag Ql (RBC) Positive [facility] Laboratory - Chemistry and C hemistry - challengeOrdered By: Lali Pimentel on 06-16-2023 CO2 [Moles/Vol] 31.0 mmol/L 21.0-32.0 [facility] Urea nitrogen/Creatinine [Mass ratio] 20.9 mg/mg 10-20 [facility] Laboratory - Coagulationon 0 06-16-2023 PT Coag (Bld) [Time] 22.3 s High 9.0 - 12.0 s [facility] Laboratory - CoagulationOrde red By: Lali Pimentel on 06-16-2023 INR Coag (Bld) [Relative time] 2.2 {INR} [facility] PT Coag (PPP) [Time] 24.3 s 11.7-14.9 [facility] Laboratory - Hematology and Cell countsOrdered By: Lali Pimentel on 06-16-2023 MCH (RBC) [Entitic mass] 28.8 pg 27.0-32.0 [facility] MCHC (RBC) [Mass/Vol] 31.9 g/dL 32-36 [facility] Nucleated RBC/100 WBC (Bld) [Ratio] 0 % 0-5 [facility] Platelet mean volume (Bld) [Entitic vol] 9.9 fL 6.2-12.0 [facility] Platelets (Bld) [#/Vol] 414 10*3/uL 150-450 [facility] No Panel Informationon 06-[address] [facility] No Panel InformationOrdered By: Lali Pimentel on 06-16-2023 Estimated Creatinine Clearance Calc 35.56 ml/min [facility] Estimated GFR (MDRD) Amer 57 mL/min >60 [facility] Comment on above: GFR Calc Estimated GFR (MDRD) Non-Af Amer 47 mL/min >60 [facility] Comment on above: Non- GFR Calc PROTHROMBIN TIMEon INR Coag (PPP) [Relative time] 2.2 {INR} High 0.9-1.1 [facility] Comment on above: Result Comment: Reji [...] Myocardial Infarction Performed By: #### L [id number] ####Inspector Final Assembly Conveyor Line: ALEXANDRA BUSTAMANTE ([id number])[facility] ([facility])[address] [place] [address] PT Coag (PPP) [Time] 22.3 s High 9.0-12.0 [facility] Comment on above: Performed By: #### L [id number] ####Inspector Final Assembly Con[employer]or Line: ALEXANDRA BUSTAMANTE ([phone])[facility] ([facility])[address] [place] [id number] [facility] PT Coag (Bld) [Time]on 06-15 INR Coag (PPP) [Relative time] 2.2 {INR} High 0.9 - 1.[address] [facility] Comment on above: Recommended Anticoag [...] Interpretation and review of laboratory results Abnormal [facility] RBC Auto (Bld) [#/Vol]Ordere d By: Lali Pimentel on 06-16-2023 RBC (Bld) [#/Vol] 4.72 10*6/uL 4.2-5.4 [facility] Serum or plasma calcium viktoria urement (mass/volume)Ordered By: Lali Pimentel on 06-16-2023 Calcium [Mass/Vol] 8.8 mg/dL 8.5-10.1 [facility] Serum or plasma creatinine m easurement (mass/volume)Ordered By: Lali Pimentel on 06-16-2023 Creatinine [Mass/Vol] 1.15 mg/dL 0.55-1.02 [facility] Comment on above: The validity of the calculated GFR & GFRAA in patients over 70 years has not been determined. Clinical correlation is essential. Serum or plasma urea nitroge n measurement (mass/volume)Ordered By: Lali Pimentel on 06-16-2023 Urea nitrogen [Mass/Vol] 24 mg/dL 10-15 [facility] Thin prep Papanicolaou smear with manual screeningOrdered By: Lali Pimentel on 06-16-2023 Thin prep Papanicolaou smear with manual screening 08-12 [facility] XR Elbow - right 2 Viewson [...] Electronically Signed Date/Time: 06/16/2023 3:38 PM EDT [facility] Sae Dudley MD - 06/16/2023 Patient Name: EZRA GONZALEZ : 1935 [id number] Exam Date/Time: 06/16/2023 15:20 Procedure: XR ELBOW [...] Electronically Signed Date/Time: 06/16/2023 3:38 PM EDT [facility] Radiology Study observation (narrative) [facility] alth XR Elbow - right 2 ViewsOrde red By: Sae Dudley on 06-16-2023 [employer] [place] Work Phone: XR Elbow - right 3 [...] Electronically Signed Date/Time: 06/16/2023 3:24 PM EDT [facility] Patient Name: EZRA GONZALEZ : 1935 Exam Date/Time: 06/16/2023 14:30 Procedure: XR ELBOW 3+ VIEWS RIGHT Ordering Provider: TENORIO KASSIDY Reason For Exam: comminuted slightly displaced supracondylar fx of distal humerus with extension to the medial epicondyle - seen at [place] cannot see imaging Examination: Right elbow Clinical Indication: Pain Comparison: None [facility] Pastor Francisco MD - 06/16/2023 Patient Name: EZRA GONZALEZ : 1935 Exam Date/Time: 06/16/2023 14:30 Procedure: XR ELBOW 3+ VIEWS RIGHT Ordering Provider: TENORIO KASSIDY Reason For Exam: comminuted slightly displaced supracondylar fx of distal humerus with extension to the medial epicondyle - seen at [place] cannot see imaging Examination: Right elbow Clinical [...] Electronically Signed Date/Time: 06/16/2023 3:24 PM EDT [facility] Radiology Study observation (narrative) [facility] alth XR Elbow - right 3 ViewsOrde red By: Pastor Francisco on 06-16-2023 [facility] Work Phone: XR Shoulder - right 2 [...] Electronically Signed Date/Time: 06/16/2023 3:30 PM EDT [facility] Patient Name: EZRA GONZALEZ : 1935 [...] glenohumeral joint. Acromioclavicular joint appears grossly intact. [facility] Reji Lemus MD - 06/16/2023 Patient [...] Electronically Signed Date/Time: 06/16/2023 3:30 PM EDT [facility] Radiology Study observation (narrative) [facility] al[facility] XR Shoulder - right 2 ViewsO rdered By: Reji Lemus on 06-16-2023 [facility] Work Phone: Capillary blood internationa l normalized ratio (INR)Ordered By: Alexandra Hagen on 05-30-2023 INR Coag (BldC) [Relative time] 1.7 [facility] Comment on above: Critical Value > 4.0 Whole blood prothrombin time Ordered By: Alexandra Hagen on 05-30-2023 PT Coag (Bld) [Time] 18.0 s 11.7-14.9 [facility] Absolute lymphocyte countOrd ered By: Alexandra Hagen on 05-12-2023 Lymphocytes Auto (Unsp spec) [#/Vol] 1.60 10*3/uL 0.83-4.51 [facility] Automated lymphocyte count a s percentage of total leukocytesOrdered By: Alexandra Hagen on 05-12-2023 Lymphocytes/100 WBC Auto (Unsp spec) 20.2 % 19-41 [facility] Basophil percentageOrdered B y: Alexandra Hagen on 05-12-2023 Basophils/100 WBC (Bld) 0.5 % 0-1 [facility] Chloride [Moles/Vol] 109 mmol/L 98-107 [facility] Eosinophils/100 WBC (Bld) 3.7 % 0-5 [facility] Glucose [Mass/Vol] 206 mg/dL 74-106 [facility] Comment on above: Glucose result great er than or equal to 200 mg/dLsuggests DIABETES MELLITUS per A.D.A. criteria. Hemoglobin (Bld) [Mass/Vol] 13.1 g/dL 12.0-15.0 [facility] Monocytes/100 WBC (Bld) 7.8 % 0-10 [facility] Neutrophils (Bld) [#/Vol] 5.3 10*3/uL 2.0-7.7 [facility] Neutrophils/100 WBC (Bld) 67.5 % 47-70 [facility] Potassium [Moles/Vol] 4.6 mmol/L 3.5-5.1 [facility] Comment on above: Moderate Hemolysis, Result may be falsely increased. Sodium [Moles/Vol] 140 mmol/L 136-145 [facility] WBC (Bld) [#/Vol] 7.9 10*3/uL 4.4-11.0 [facility] Determination of erythrocyte mean corpuscular volume (MCV)Ordered By: Alexandra Hagen on 05-12-2023 MCV (RBC) [Entitic vol] 93.1 fL 81-99 [facility] Erythrocyte distribution wid th ratioOrdered By: Alexandra Hagen on 05-12-2023 Erythrocyte distribution width (RBC) [Ratio] 13.5 % 11.6-14.6 [facility] Erythrocyte distribution wid th standard deviationOrdered By: Alexandra Hagen on 05-12-2023 Erythrocyte distribution width (RBC) [Entitic vol] 46.0 fL 35.1-43.9 [facility] Hematocrit Auto (Bld) [Volum e fraction]Ordered By: Alexandra Hagen on 05-12-2023 Hematocrit (Bld) [Volume fraction] 41.8 % 37-47 [facility] Immature granulocytes/100 WB C Auto (Bld)Ordered By: Alexandra Hagen on 05-12-2023 Immature granulocytes/100 WBC (Bld) 0.300 % 0.0-0.9 [facility] Comment on above: IG% - Immature Granu locytes (promyelocytes, myelocytes and metamyelocytes) > 1% indicates that a LEFT SHIFT is Present. Laboratory - Chemistry and C hemistry - challengeOrdered By: Alexandra Hagen on 05-12-2023 CO2 [Moles/Vol] 25.0 mmol/L 21.0-32.0 [facility] Urea nitrogen/Creatinine [Mass ratio] 13.7 mg/mg 10-20 [facility] Laboratory - Hematology and Cell countsOrdered By: Alexandra Hagen on 05-12-2023 MCH (RBC) [Entitic mass] 29.2 pg 27.0-32.0 [facility] MCHC (RBC) [Mass/Vol] 31.3 g/dL 32-36 [facility] Nucleated RBC/100 WBC (Bld) [Ratio] 0 % 0-5 [facility] Platelet mean volume (Bld) [Entitic vol] 10.6 fL 6.2-12.0 [facility] Platelets (Bld) [#/Vol] 272 10*3/uL 150-450 [facility] No Panel InformationOrdered By: Alexandra Hagen on 05-12-2023 Estimated GFR (MDRD) Amer 53 mL/min >60 [facility] Comment on above: GFR Calc Estimated GFR (MDRD) Non-Af Amer 43 mL/min >60 [facility] Comment on above: Non- GFR Calc RBC Auto (Bld) [#/Vol]Ordere d By: Alexandra Hagen on 05-12-2023 RBC (Bld) [#/Vol] 4.49 10*6/uL 4.2-5.4 [facility] Serum or plasma calcium viktoria urement (mass/volume)Ordered By: Alexandra Hagen on 05-12-2023 Calcium [Mass/Vol] 8.5 mg/dL 8.5-10.1 [facility] Serum or plasma creatinine m easurement (mass/volume)Ordered By: Alexandra Hagen on 05-12-2023 Creatinine [Mass/Vol] 1.24 mg/dL 0.55-1.02 [facility] Comment on above: The validity of the calculated GFR & GFRAA in patients over 70 years has not been determined. Clinical correlation is essential. Serum or plasma urea nitroge n measurement (mass/volume)Ordered By: Alexandra Hagen on 05-12-2023 Urea nitrogen [Mass/Vol] 17 mg/dL 7-18 [facility] Thin prep Papanicolaou smear with manual screeningOrdered By: Alexandra Hagen on 05-12-2023 Thin prep Papanicolaou smear with manual screening 6 5-15 [facility] Whole blood hemoglobin A1c/t otal hemoglobin [...] 05-01-2023 INR Coag (BldC) [Relative time] 2.0 [facility] Comment on above: Critical Value > 4.0 Whole blood prothrombin time Ordered By: lAexandra Hagen on 05-01-2023 PT Coag (Bld) [Time] 21.0 s 11.7-14.9 [facility] International normalized rat io (INR) calculationOrdered By: Alexandra Hagen on 04-17-2023 INR Coag (PPP) [Relative time] 1.8 {INR} [facility] Laboratory - CoagulationOrde red By: Alexandra Hagen on 04-17-2023 PT Coag (PPP) [Time] 21.0 s 11.7-14.9 [facility] Laboratory - CoagulationOrde red By: Alexandra Hagen on 03-20-2023 INR Coag (Bld) [Relative time] 2.4 {INR} [facility] Comment on above: Critical Value > 4.0 Whole blood prothrombin time Ordered By: Alexandra Hagen on 03-20-2023 PT Coag (Bld) [Time] 25.7 s 11.7-14.9 [facility] Basophil percentageOrdered B y: Alexandra Hagen on 02-21-2023 Bilirubin [Mass/Vol] 0.60 mg/dL 0.20-1.00 [facility] Comment on above: For patients on eltr ombopag therapy, use of Dimension Cornelius TBIL is not recommended. Chloride [Moles/Vol] 107 mmol/L 98-107 [facility] Cholesterol [Mass/Vol] 127 mg/dL <200 [facility] Comment on above: <200 mg/dL Desirable 200-240 mg/dL Borderline >240 mg/dL High Risk Glucose [Mass/Vol] 134 mg/dL 74-106 [facility] Comment on above: Fasting Glucose resu lt greater than or equal to 126 mg/dL suggests DIABETES MELLITUS per A.D.A. criteria. Potassium [Moles/Vol] 4.2 mmol/L 3.5-5.1 [facility] Protein [Mass/Vol] 6.2 g/dL 6.4-8.2 [facility] Sodium [Moles/Vol] 138 mmol/L 136-145 [facility] Triglyceride [Mass/Vol] 102 mg/dL <199 [facility] Comment on above: The drugs N-Acetylcy steine and Metamizole may falsely depress this assay.Serum Triglycerides Reference Interval Normal <150 mg/dL Borderline high 150 - 199 mg/dL High 200 - 499 mg/dL Very High > or = 500 mg/dL WBC (Bld) [#/Vol] 7.7 10*3/uL 4.4-11.0 [facility] Blood erythrocytes count (nu mber/volume)Ordered By: Alexandra Hagen on 02-21-2023 RBC (Bld) [#/Vol] 4.19 10*6/uL 4.2-5.4 [facility] Blood hemoglobin measurement (mass/volume)Ordered By: Alexandra Hagen on 02-21-2023 Hemoglobin (Bld) [Mass/Vol] 12.5 g/dL 12.0-15.0 [facility] Blood platelet mean volumeOr dered By: Alexandra Hagen on 02-21-2023 Platelet mean volume (Bld) [Entitic vol] 10.8 fL 6.2-12.0 [facility] Determination of erythrocyte mean corpuscular volume (MCV)Ordered By: Alexandra Hagen on 02-21-2023 MCV (RBC) [Entitic vol] 91.2 fL 81-99 [facility] Hematocrit Auto (Bld) [Volum e fraction]Ordered By: Alexandra Hagen on 02-21-2023 Hematocrit (Bld) [Volume fraction] 38.2 % 37-47 [facility] INR in Blood by Coagulation assayOrdered By: Alexandra Hagen on 02-21-2023 INR Coag (Bld) [Relative time] 2.3 {INR} [facility] Laboratory - Chemistry and C hemistry - challengeOrdered By: Alexandra Hagen on 02-21-2023 ALP [Catalytic activity/Vol] 84 U/L 45-117 [facility] ALT [Catalytic activity/Vol] 11 U/L 13-56 [facility] CO2 [Moles/Vol] 27.0 mmol/L 21.0-32.0 [facility] Globulin (S) [Mass/Vol] 3.3 g/dL 2.2-4.2 [facility] Urea nitrogen/Creatinine [Mass ratio] 14.0 mg/mg 10-20 [facility] Laboratory - CoagulationOrde red By: Alexandra Hagen on 02-21-2023 PT Coag (PPP) [Time] 25.3 s 11.7-14.9 [facility] Laboratory - Hematology and Cell countsOrdered By: Alexandra Hagen on 02-21-2023 Erythrocyte distribution width (RBC) [Entitic vol] 44.8 fL 35.1-43.9 [facility] Erythrocyte distribution width (RBC) [Ratio] 13.4 % 11.6-14.6 [facility] MCH (RBC) [Entitic mass] 29.8 pg 27.0-32.0 [facility] MCHC Auto (RBC) [Mass/Vol]Or dered By: Alexandra Hagen on 02-21-2023 MCHC (RBC) [Mass/Vol] 32.7 g/dL 32-36 [facility] No Panel InformationOrdered By: Alexandra Hagen on 02-21-2023 Estimated GFR (MDRD) Amer 68 mL/min >60 [facility] Comment on above: GFR Calc Estimated GFR (MDRD) Non-Af Amer 56 mL/min >60 [facility] Comment on above: Non- GFR Calc Platelets bldOrdered By: Alexandra Hagen on 02-21-2023 Platelets (Bld) [#/Vol] 297 10*3/uL 150-450 [facility] Serum or plasma albumin viktoria urement (mass/volume)Ordered By: Alexandra Hagen on 02-21-2023 Albumin [Mass/Vol] 2.9 g/dL 3.2-5.0 [facility] Serum or plasma albumin/glob ulin mass ratioOrdered By: Alexandra Hagen on 02-21-2023 Albumin/Globulin [Mass ratio] 0.9 {ratio} 0.9-2.4 [facility] Serum or plasma calcium viktoria urement (mass/volume)Ordered By: Alexandra Hagen on 02-21-2023 Calcium [Mass/Vol] 8.4 mg/dL 8.5-10.1 [facility] Serum or plasma cholesterol in HDL measurement (mass/volume)Ordered By: Alexandra Hagen on 02-21-2023 Cholesterol in HDL [Mass/Vol] 50 mg/dL >40 [facility] Comment on above: The drugs N-Acetylcy steine and Metamizole may falsely depress this assay. Reference Range HDL <40 mg/dL Low HDL Cholesterol HDL >or= 60 mg/dL High HDL Cholesterol Serum or plasma cholesterol in VLDL measurement (mass/volume)Ordered By: Alexandra Hagen on 02-21-2023 Cholesterol in VLDL [Mass/Vol] 20 mg/dL 5-40 [facility] Serum or plasma creatinine m easurement (mass/volume)Ordered By: Alexandra Hagen on 02-21-2023 Creatinine [Mass/Vol] 1.00 mg/dL 0.55-1.02 [facility] Comment on above: The validity of the calculated GFR & GFRAA in patients over 70 years has not been determined. Clinical correlation is essential. Serum or plasma low density lipoprotein (LDL) cholesterol measurement (mass/volume)Ordered By: Alexandra Hagen on 02-21-2023 Cholesterol in LDL [Mass/Vol] 57 mg/dL 0-130 [facility] Serum or plasma urea nitroge n measurement (mass/volume)Ordered By: Alexandra Hagen on 02-21-2023 Urea nitrogen [Mass/Vol] 14 mg/dL 7-18 [facility] Thin prep Papanicolaou smear with manual screeningOrdered By: Alexandra Hagen on 02-21-2023 Thin prep Papanicolaou smear with manual screening 16 U/L 15-37 [facility] Thin prep Papanicolaou smear with manual screening 4 5-15 [facility] Albumin Elph [Mass/Vol]Order ed By: Anant Juarez on 01-20-2023 Albumin [Mass/Vol] 3.4 g/dL 2.9-4.4 [facility] Basophil percentageOrdered B y: Anant Juarez on 01-20-2023 Basophil percentage Comment . [facility] Comment on above: No monoclonality det ected.Performed at: [facility], [place] [id number] Director: Master Vee PhD, Phone: [phone] Interpretation of serum or p lasma protein pattern by immunofixation (narrative resultOrdered By: Anant Juarez on 01-20-2023 Protein Fractions Immunofixation Manuel [Interp] See comment [facility] Comment on above: Result: Not Observed No Panel InformationOrdered By: Anant Juarez on 01-20-2023 Addendum Document Comment . [facility] Comment on above: Protein electrophore sis scan will follow via computer,mail, or dehydrogenation operator head delivery. Serum [id number] measu rement by electrophoresisOrdered By: Anant Juarez on 01-20-2023 Alpha 1 globulin Elph [Mass/Vol] 0.3 g/dL 0.0-0.4 [facility] Alpha 1 globulin Elph [Mass/Vol] 0.9 g/dL 0.4-1.0 [facility] Serum globulin measurement ( mass/volume)Ordered By: Anant Juarez on 01-20-2023 Globulin (S) [Mass/Vol] 3.0 g/dL 2.2-3.9 [facility] Serum or plasma IgA measurem ent (mass/volume)Ordered By: Anant Juarez 01-20-2023 IgA [Mass/Vol] 158 mg/dL 64-422 [facility] Serum or plasma IgG measurem ent (mass/volume)Ordered By: Anant Juarez 01-20-2023 IgG [Mass/Vol] 847 mg/dL [phone] [facility] Serum or plasma IgM measurem ent (mass/volume)Ordered By: Anant Juarez 01-20-2023 IgM [Mass/Vol] 48 mg/dL 26-217 [facility] Serum or plasma beta globuli n measurement by electrophoresis (mass/volume)Ordered By: Anant Juarez 01-20-2023 Beta globulin Elph [Mass/Vol] 1.0 g/dL 0.7-1.3 [facility] Serum or plasma gamma globul in measurement by electrophoresis (mass/volume)Ordered By: Anant Juarez 01-20-2023 Gamma globulin Elph [Mass/Vol] 0.7 g/dL 0.4-1.8 [facility] Serum or plasma immunoelectr ophoresis interpretation (nominal result)Ordered By: Anant Jerrica on 01-20-2023 Interpretation IEP [Interp] Comment . [facility] Comment on above: No monoclonality det ected. Thin prep Papanicolaou smear with manual screeningOrdered By: Anant Juarez on 01-20-2023 Thin prep Papanicolaou smear with manual screening 1.2 0.7-1.7 [facility] Total protein bloodOrdered B y: Anant Juarez on 01-20-2023 Protein [Mass/Vol] 6.4 g/dL 6.0-8.5 [facility] Laboratory - CoagulationOrde red By: Alexandra Hagen on 01-16-2023 INR Coag (Bld) [Relative time] 2.2 {INR} [facility] Comment on above: Critical Value > 4.0 Whole blood prothrombin time Ordered By: Alexandra Hagen on 01-16-2023 PT Coag (Bld) [Time] 24.2 s 11.7-14.9 [facility] Absolute lymphocyte countOrd ered By: Lynn Horn on 12-28-2022 Lymphocytes Auto (Unsp spec) [#/Vol] 1.57 10*3/uL 0.83-4.51 [facility] Basophil percentageOrdered B y: Lynn Horn on 12-28-2022 Basophils/100 WBC (Bld) 0.6 % 0-1 [facility] Chloride [Moles/Vol] 108 mmol/L 98-107 [facility] [facility] Eosinophils/100 WBC (Bld) 3.0 % 0-5 [facility] Glucose [Mass/Vol] 117 mg/dL 74-106 [facility] Comment on above: Fasting Glucose resu lt from 100 to 125 mg/dL suggests IMPAIRED HOMEOSTASIS per A.D.A. criteria. Neutrophils (Bld) [#/Vol] 5.3 10*3/uL 2.0-7.7 [facility] Neutrophils/100 WBC (Bld) 66.8 % 47-70 [facility] Potassium [Moles/Vol] 3.9 mmol/L 3.5-5.1 [facility] Sodium [Moles/Vol] 138 mmol/L 136-145 [facility] WBC (Bld) [#/Vol] 7.9 10*3/uL 4.4-11.0 [facility] Blood erythrocytes count (nu mber/volume)Ordered By: Lynn Horn on 12-28-2022 RBC (Bld) [#/Vol] 4.32 10*6/uL 4.2-5.4 [facility] Blood hemoglobin measurement (mass/volume)Ordered By: Lynn Horn on 12-28-2022 Hemoglobin (Bld) [Mass/Vol] 12.8 g/dL 12.0-15.0 [facility] Blood lymphocytes/100 leukoc ytesOrdered By: Lynn Horn on 12-28-2022 Lymphocytes/100 WBC (Bld) 19.8 % 19-41 [facility] Blood monocytes/100 leukocyt esOrdered By: Lynn Horn on 12-28-2022 Monocytes/100 WBC (Bld) 9.5 % 0-10 [facility] Blood platelet mean volumeOr dered By: Lynn Horn on 12-28-2022 Platelet mean volume (Bld) [Entitic vol] 10.6 fL 6.2-12.0 [facility] Determination of erythrocyte mean corpuscular volume (MCV)Ordered By: Lynn Horn on 12-28-2022 MCV (RBC) [Entitic vol] 91.0 fL 81-99 [facility] Hematocrit Auto (Bld) [Volum e fraction]Ordered By: Lynn Horn on 12-28-2022 Hematocrit (Bld) [Volume fraction] 39.3 % 37-47 [facility] INR in Blood by Coagulation assayOrdered By: Lynn Horn on 12-28-2022 INR Coag (Bld) [Relative time] 2.1 {INR} [facility] Laboratory - Chemistry and C hemistry - challengeOrdered By: Lynn Horn on 12-28-2022 CO2 [Moles/Vol] 27.0 mmol/L 21.0-32.0 [facility] Urea nitrogen/Creatinine [Mass ratio] 15.7 mg/mg 10-20 [facility] Laboratory - CoagulationOrde red By: Lynn Horn on 12-28-2022 PT Coag (PPP) [Time] 23.8 s 11.7-14.9 [facility] Laboratory - Hematology and Cell countsOrdered By: Lynn Horn on 12-28-2022 Erythrocyte distribution width (RBC) [Entitic vol] 43.0 fL 35.1-43.9 [facility] Erythrocyte distribution width (RBC) [Ratio] 12.9 % 11.6-14.6 [facility] Immature granulocytes/100 WBC (Bld) 0.300 % 0.0-0.9 [facility] Comment on above: IG% - Immature Granu locytes (promyelocytes, myelocytes and metamyelocytes) > 1% indicates that a LEFT SHIFT is Present. MCH (RBC) [Entitic mass] 29.6 pg 27.0-32.0 [facility] Nucleated RBC/100 WBC (Bld) [Ratio] 0 % 0-5 [facility] MCHC Auto (RBC) [Mass/Vol]Or dered By: Lynn Horn on 12-28-2022 MCHC (RBC) [Mass/Vol] 32.6 g/dL 32-36 [facility] No Panel InformationOrdered By: Lynn Horn on 12-28-2022 Estimated Creatinine Clearance Calc 36.84 ml/min [facility] Estimated GFR (MDRD) Amer 77 mL/min >60 [facility] Comment on above: GFR Calc Estimated GFR (MDRD) Non-Af Amer 64 mL/min >60 [facility] Comment on above: Non- GFR Calc Platelets bldOrdered By: Lois Horn on 12-28-2022 Platelets (Bld) [#/Vol] 272 10*3/uL 150-450 [facility] Serum or plasma calcium viktoria urement (mass/volume)Ordered By: Lynn Horn on 12-28-2022 Calcium [Mass/Vol] 8.3 mg/dL 8.5-10.1 [facility] Serum or plasma creatinine m easurement (mass/volume)Ordered By: Lynn Horn on 12-28-2022 Creatinine [Mass/Vol] 0.89 mg/dL 0.55-1.02 [facility] Comment on above: The validity of the calculated GFR & GFRAA in patients over 70 years has not been determined. Clinical correlation is essential. Serum or plasma urea nitroge n measurement (mass/volume)Ordered By: Lynn Horn on 12-28-2022 Urea nitrogen [Mass/Vol] 14 mg/dL 7-18 [facility] Thin prep Papanicolaou smear with manual screeningOrdered By: Lynn Horn on 12-28-2022 Thin prep Papanicolaou smear with manual screening 3 5-15 [facility] Laboratory - CoagulationOrde red By: Lali Pimentel on 12-27-2022 aPTT Coag (Bld) [Time] 48.2 s 24.1-36.2 [facility] No Panel InformationOrdered By: Lali Pimentel on 12-27-2022 Troponin I High Sensitivity 10 pg/mL 3.0-54.0 [facility] Comment on above: Please Note: New Evon t Units and Gender Specific Reference Ranges. For more information see Policy Stat Procedure Cornelius High Sensitivity Troponin (TNIH) and attachments. Laboratory - CoagulationOrde red By: Alexandra Hagen on 12-19-2022 INR Coag (Bld) [Relative time] 2.8 {INR} [facility] Comment on above: Critical Value > 4.0 Whole blood prothrombin time Ordered By: Alexandra Hagen on 12-19-2022 PT Coag (Bld) [Time] 29.7 s 11.7-14.9 [facility] Absolute lymphocyte countOrd ered By: Alexandra Hagen on 12-09-2022 Lymphocytes Auto (Unsp spec) [#/Vol] 1.65 10*3/uL 0.83-4.51 [facility] Basophil percentageOrdered B y: Alexandra Hagen on 12-09-2022 Basophils/100 WBC (Bld) 0.4 % 0-1 [facility] Chloride [Moles/Vol] 107 mmol/L 98-107 [facility] Eosinophils/100 WBC (Bld) 3.6 % 0-5 [facility] Glucose [Mass/Vol] 125 mg/dL 74-106 [facility] Comment on above: Fasting Glucose resu lt from 100 to 125 mg/dL suggests IMPAIRED HOMEOSTASIS per A.D.A. criteria. Neutrophils (Bld) [#/Vol] 4.3 10*3/uL 2.0-7.7 [facility] Neutrophils/100 WBC (Bld) 61.6 % 47-70 [facility] Potassium [Moles/Vol] 4.8 mmol/L 3.5-5.1 [facility] Sodium [Moles/Vol] 138 mmol/L 136-145 [facility] WBC (Bld) [#/Vol] 7.0 10*3/uL 4.4-11.0 [facility] Blood erythrocytes count (nu mber/volume)Ordered By: Alexandra Hagen on 12-09-2022 RBC (Bld) [#/Vol] 4.30 10*6/uL 4.2-5.4 [facility] Blood hemoglobin measurement (mass/volume)Ordered By: Alexandra Hagen on 12-09-2022 Hemoglobin (Bld) [Mass/Vol] 13.1 g/dL 12.0-15.0 [facility] Blood lymphocytes/100 leukoc ytesOrdered By: Alexandra Hagen on 12-09-2022 Lymphocytes/100 WBC (Bld) 23.7 % 19-41 [facility] Blood monocytes/100 leukocyt esOrdered By: Alexandra Hagen on 12-09-2022 Monocytes/100 WBC (Bld) 10.4 % 0-10 [facility] Blood platelet mean volumeOr dered By: Alexandra Hagen on 12-09-2022 Platelet mean volume (Bld) [Entitic vol] 10.7 fL 6.2-12.0 [facility] Determination of erythrocyte mean corpuscular volume (MCV)Ordered By: Alexandra Hagen on 12-09-2022 MCV (RBC) [Entitic vol] 92.3 fL 81-99 [facility] Hematocrit Auto (Bld) [Volum e fraction]Ordered By: Alexandra Hagen on 12-09-2022 Hematocrit (Bld) [Volume fraction] 39.7 % 37-47 [facility] Laboratory - Chemistry and C hemistry - challengeOrdered By: Alexandra Hagen on 12-09-2022 CO2 [Moles/Vol] 26.0 mmol/L 21.0-32.0 [facility] Urea nitrogen/Creatinine [Mass ratio] 14.4 mg/mg 10-20 [facility] Laboratory - Hematology and Cell countsOrdered By: Alexandra Hagen on 12-09-2022 Erythrocyte distribution width (RBC) [Entitic vol] 44.0 fL 35.1-43.9 [facility] Erythrocyte distribution width (RBC) [Ratio] 13.1 % 11.6-14.6 [facility] Immature granulocytes/100 WBC (Bld) 0.300 % 0.0-0.9 [facility] Comment on above: IG% - Immature Granu locytes (promyelocytes, myelocytes and metamyelocytes) > 1% indicates that a LEFT SHIFT is Present. MCH (RBC) [Entitic mass] 30.5 pg 27.0-32.0 [facility] Nucleated RBC/100 WBC (Bld) [Ratio] 0 % 0-5 [facility] MCHC Auto (RBC) [Mass/Vol]Or dered By: Alexandra Hagen on 12-09-2022 MCHC (RBC) [Mass/Vol] 33.0 g/dL 32-36 [facility] No Panel InformationOrdered By: Alexandra Hagen on 12-09-2022 Estimated GFR (MDRD) Amer 60 mL/min >60 [facility] Comment on above: GFR Calc Estimated GFR (MDRD) Non-Af Amer 49 mL/min >60 [facility] Comment on above: Non- GFR Calc Platelets bldOrdered By: Alexandra Hagen on 12-09-2022 Platelets (Bld) [#/Vol] 293 10*3/uL 150-450 [facility] Serum or plasma calcium viktoria urement (mass/volume)Ordered By: Alexandra Hagen on 12-09-2022 Calcium [Mass/Vol] 8.7 mg/dL 8.5-10.1 [facility] Serum or plasma creatinine m easurement (mass/volume)Ordered By: Alexandra Hagen on 12-09-2022 Creatinine [Mass/Vol] 1.11 mg/dL 0.55-1.02 [facility] Comment on above: The validity of the calculated GFR & GFRAA in patients over 70 years has not been determined. Clinical correlation is essential. Serum or plasma urea nitroge n measurement (mass/volume)Ordered By: Alexandra Hagen on 12-09-2022 Urea nitrogen [Mass/Vol] 16 mg/dL 7-18 [facility] Thin prep Papanicolaou smear with manual screeningOrdered By: Alexandra Hagen on 12-09-2022 Thin prep Papanicolaou smear with manual screening 5 5-15 [facility] Whole blood hemoglobin A1c/t otal hemoglobin ratio (mass fraction)Ordered By: Alexandra Hagen on 12-09-2022 HbA1c (Bld) [Mass fraction] 6.7 % 3.8-5.6 [facility] Comment on above: Normal < 5.7 % Predi abetic 5.7 - 6.4 % Diabetic >or= 6.5 % Please note range changes. Basophil percentageOrdered B y: Alexandra Hagen on 11-20-2022 Bilirubin [Mass/Vol] 0.50 mg/dL 0.20-1.00 [facility] Comment on above: For patients on eltr ombopag therapy, use of Dimension Cornelius TBIL is not recommended. Chloride [Moles/Vol] 105 mmol/L 98-107 [facility] Cholesterol [Mass/Vol] 167 mg/dL <200 [facility] Comment on above: <200 mg/dL Desirable 200-240 mg/dL Borderline >240 mg/dL High Risk Glucose [Mass/Vol] 153 mg/dL 74-106 [facility] Comment on above: Fasting Glucose resu lt greater than or equal to 126 mg/dL suggests DIABETES MELLITUS per A.D.A. criteria. Potassium [Moles/Vol] 4.2 mmol/L 3.5-5.1 [facility] Protein [Mass/Vol] 6.7 g/dL 6.4-8.2 [facility] Sodium [Moles/Vol] 138 mmol/L 136-145 [facility] Triglyceride [Mass/Vol] 120 mg/dL <199 [facility] Comment on above: The drugs N-Acetylcy steine and Metamizole may falsely depress this assay.Serum Triglycerides Reference Interval Normal <150 mg/dL Borderline high 150 - 199 mg/dL High 200 - 499 mg/dL Very High > or = 500 mg/dL WBC (Bld) [#/Vol] 7.4 10*3/uL 4.4-11.0 [facility] Blood erythrocytes count (nu mber/volume)Ordered By: Alexandra Hagen on 11-20-2022 RBC (Bld) [#/Vol] 4.37 10*6/uL 4.2-5.4 [facility] Blood hemoglobin measurement (mass/volume)Ordered By: Alexandra Hagen on 11-20-2022 Hemoglobin (Bld) [Mass/Vol] 13.1 g/dL 12.0-15.0 [facility] Blood platelet mean volumeOr dered By: Alexandra Hagen on 11-20-2022 Platelet mean volume (Bld) [Entitic vol] 10.8 fL 6.2-12.0 [facility] Determination of erythrocyte mean corpuscular volume (MCV)Ordered By: Alexandra Hagen on 11-20-2022 MCV (RBC) [Entitic vol] 91.5 fL 81-99 [facility] Hematocrit Auto (Bld) [Volum e fraction]Ordered By: Alexandra Hagen on 11-20-2022 Hematocrit (Bld) [Volume fraction] 40.0 % 37-47 [facility] INR in Blood by Coagulation assayOrdered By: Alexandra Hagen on 11-20-2022 INR Coag (Bld) [Relative time] 2.0 {INR} [facility] Laboratory - Chemistry and C hemistry - challengeOrdered By: Alexandra Hagen on 11-20-2022 ALP [Catalytic activity/Vol] 72 U/L 45-117 [facility] ALT [Catalytic activity/Vol] 13 U/L 13-56 [facility] CO2 [Moles/Vol] 30.0 mmol/L 21.0-32.0 [facility] Globulin (S) [Mass/Vol] 3.6 g/dL 2.2-4.2 [facility] Urea nitrogen/Creatinine [Mass ratio] 12.8 mg/mg 10-20 [facility] Laboratory - CoagulationOrde red By: Alexandra Hagen on 11-20-2022 PT Coag (PPP) [Time] 22.6 s 11.7-14.9 [facility] Laboratory - Hematology and Cell countsOrdered By: Alexandra Hagen on 11-20-2022 Erythrocyte distribution width (RBC) [Entitic vol] 43.4 fL 35.1-43.9 [facility] Erythrocyte distribution width (RBC) [Ratio] 12.9 % 11.6-14.6 [facility] MCH (RBC) [Entitic mass] 30.0 pg 27.0-32.0 [facility] MCHC Auto (RBC) [Mass/Vol]Or dered By: Alexandra Hagne on 11-20-2022 MCHC (RBC) [Mass/Vol] 32.8 g/dL 32-36 [facility] No Panel InformationOrdered By: Alexandra Hagen on 11-20-2022 Estimated GFR (MDRD) Amer 61 mL/min >60 [facility] Comment on above: GFR Calc Estimated GFR (MDRD) Non-Af Amer 50 mL/min >60 [facility] Comment on above: Non- GFR Calc Platelets bldOrdered By: Alexandra Hagen on 11-20-2022 Platelets (Bld) [#/Vol] 310 10*3/uL 150-450 [facility] Serum or plasma albumin viktoria urement (mass/volume)Ordered By: Alexandra Hagen on 11-20-2022 Albumin [Mass/Vol] 3.1 g/dL 3.2-5.0 [facility] Serum or plasma albumin/glob ulin mass ratioOrdered By: Alexandra Hagen on 11-20-2022 Albumin/Globulin [Mass ratio] 0.9 {ratio} 0.9-2.4 [facility] Serum or plasma calcium viktoria urement (mass/volume)Ordered By: Alexandra Hagen on 11-20-2022 Calcium [Mass/Vol] 8.6 mg/dL 8.5-10.1 [facility] Serum or plasma cholesterol in HDL measurement (mass/volume)Ordered By: Alexandra Hagen on 11-20-2022 Cholesterol in HDL [Mass/Vol] 55 mg/dL >40 [facility] Comment on above: The drugs N-Acetylcy steine and Metamizole may falsely depress this assay. Reference Range HDL <40 mg/dL Low HDL Cholesterol HDL >or= 60 mg/dL High HDL Cholesterol Serum or plasma cholesterol in VLDL measurement (mass/volume)Ordered By: Alexandra Hagen on 11-20-2022 Cholesterol in VLDL [Mass/Vol] 24 mg/dL 5-40 [facility] Serum or plasma creatinine m easurement (mass/volume)Ordered By: Alexandra Hagen on 11-20-2022 Creatinine [Mass/Vol] 1.09 mg/dL 0.55-1.02 [facility] Comment on above: The validity of the calculated GFR & GFRAA in patients over 70 years has not been determined. Clinical correlation is essential. Serum or plasma low density lipoprotein (LDL) cholesterol measurement (mass/volume)Ordered By: Alexandra Hagen on 11-20-2022 Cholesterol in LDL [Mass/Vol] 88 mg/dL 0-130 [facility] Serum or plasma urea nitroge n measurement (mass/volume)Ordered By: Alexandra Hagen on 11-20-2022 Urea nitrogen [Mass/Vol] 14 mg/dL 7-18 [facility] Thin prep Papanicolaou smear with manual screeningOrdered By: Alexandra Hagen on 11-20-2022 Thin prep Papanicolaou smear with manual screening 15 U/L 15-37 [facility] Thin prep Papanicolaou smear with manual screening 3 5-15 [facility] Absolute lymphocyte countOrd ered By: Mo Corea on 11-18-2022 Lymphocytes Auto (Unsp spec) [#/Vol] 1.95 10*3/uL 0.83-4.51 [facility] Basophil percentageOrdered B y: Mo Corea on 11-18-2022 Basophil percentage 0-5 SEEN /hpf 0-5 [facility] Basophils/100 WBC (Bld) 0.4 % 0-1 [facility] Bilirubin [Mass/Vol] 0.40 mg/dL 0.20-1.00 [facility] Comment on above: For patients on eltr ombopag therapy, use of Dimension Cornelius TBIL is not recommended. Chloride [Moles/Vol] 108 mmol/L 98-107 [facility] Eosinophils/100 WBC (Bld) 3.4 % 0-5 [facility] Glucose [Mass/Vol] 126 mg/dL 74-106 [facility] Comment on above: Fasting Glucose resu lt greater than or equal to 126 mg/dL suggests DIABETES MELLITUS per A.D.A. criteria. Neutrophils (Bld) [#/Vol] 4.4 10*3/uL 2.0-7.7 [facility] Neutrophils/100 WBC (Bld) 59.9 % 47-70 [facility] Potassium [Moles/Vol] 3.9 mmol/L 3.5-5.1 [facility] Protein [Mass/Vol] 6.9 g/dL 6.4-8.2 [facility] Sodium [Moles/Vol] 140 mmol/L 136-145 [facility] WBC (Bld) [#/Vol] 7.3 10*3/uL 4.4-11.0 [facility] Bilirubin Test strip Ql (U)O rdered By: Mo Corea on 11-18-2022 Bilirubin Ql (U) Negative Negative [facility] Blood erythrocytes count (nu mber/volume)Ordered By: Mo Corea on 11-18-2022 RBC (Bld) [#/Vol] 4.63 10*6/uL 4.2-5.4 [facility] Blood hemoglobin measurement (mass/volume)Ordered By: Mo Corea on 11-18-2022 Hemoglobin (Bld) [Mass/Vol] 13.9 g/dL 12.0-15.0 [facility] Blood lymphocytes/100 leukoc ytesOrdered By: Mo Corea on 11-18-2022 Lymphocytes/100 WBC (Bld) 26.8 % 19-41 [facility] Blood monocytes/100 leukocyt esOrdered By: Mo Corea on 11-18-2022 Monocytes/100 WBC (Bld) 9.2 % 0-10 [facility] Blood platelet mean volumeOr dered By: Mo Corea on 11-18-2022 Platelet mean volume (Bld) [Entitic vol] 10.5 fL 6.2-12.0 [facility] Determination of erythrocyte mean corpuscular volume (MCV)Ordered By: Mo Corea on 11-18-2022 MCV (RBC) [Entitic vol] 92.4 fL 81-99 [facility] Hematocrit Auto (Bld) [Volum e fraction]Ordered By: Mo Corea on 11-18-2022 Hematocrit (Bld) [Volume fraction] 42.8 % 37-47 [facility] INR in Blood by Coagulation assayOrdered By: Mo Corea on 11-18-2022 INR Coag (Bld) [Relative time] 2.0 {INR} [facility] Ketones Test strip Ql (U)Ord ered By: Mo Corea on 11-18-2022 Ketones Ql (U) Negative Negative [facility] Laboratory - Chemistry and C hemistry - challengeOrdered By: Mo Corea on 11-18-2022 ALP [Catalytic activity/Vol] 76 U/L 45-117 [facility] ALT [Catalytic activity/Vol] 13 U/L 13-56 [facility] CO2 [Moles/Vol] 30.0 mmol/L 21.0-32.0 [facility] Globulin (S) [Mass/Vol] 3.6 g/dL 2.2-4.2 [facility] Urea nitrogen/Creatinine [Mass ratio] 13.6 mg/mg 10-20 [facility] Laboratory - CoagulationOrde red By: oM Corea on 11-18-2022 aPTT Coag (Bld) [Time] 48.1 s 24.1-36.2 [facility] PT Coag (PPP) [Time] 22.7 s 11.7-14.9 [facility] Laboratory - Hematology and Cell countsOrdered By: Mo Corea on 11-18-2022 Erythrocyte distribution width (RBC) [Entitic vol] 44.2 fL 35.1-43.9 [facility] Erythrocyte distribution width (RBC) [Ratio] 13.1 % 11.6-14.6 [facility] Immature granulocytes/100 WBC (Bld) 0.300 % 0.0-0.9 [facility] Comment on above: IG% - Immature Granu locytes (promyelocytes, myelocytes and metamyelocytes) > 1% indicates that a LEFT SHIFT is Present. MCH (RBC) [Entitic mass] 30.0 pg 27.0-32.0 [facility] Nucleated RBC/100 WBC (Bld) [Ratio] 0 % 0-5 [facility] MCHC Auto (RBC) [Mass/Vol]Or dered By: Mo Corea on 11-18-2022 MCHC (RBC) [Mass/Vol] 32.5 g/dL 32-36 [facility] Mucus LM Ql (Urine sed)Order ed By: Mo Corea on 11-18-2022 Mucus Ql (Urine sed) 0 SEEN /hpf [facility] Nitrite Test strip Ql (U)Ord ered By: Mo Corea on 11-18-2022 Nitrite Ql (U) Negative Negative [facility] No Panel InformationOrdered By: Mo Corea on 11-18-2022 Estimated Creatinine Clearance Calc 31.83 ml/min [facility] Estimated GFR (MDRD) Amer 65 mL/min >60 [facility] Comment on above: GFR Calc Estimated GFR (MDRD) Non-Af Amer 54 mL/min >60 [facility] Comment on above: Non- GFR Calc Platelets bldOrdered By: Rebecca Corea on 11-18-2022 Platelets (Bld) [#/Vol] 289 10*3/uL 150-450 [facility] Protein Test strip Ql (U)Ord ered By: Mo Corea on 11-18-2022 Protein Ql (U) 15 mg/dl Negative [facility] Serum or plasma albumin viktoria urement (mass/volume)Ordered By: Mo Corea on 11-18-2022 Albumin [Mass/Vol] 3.3 g/dL 3.2-5.0 [facility] Serum or plasma albumin/glob ulin mass ratioOrdered By: Mo Corea on 11-18-2022 Albumin/Globulin [Mass ratio] 0.9 {ratio} 0.9-2.4 [facility] Serum or plasma calcium viktoria urement (mass/volume)Ordered By: Mo Corea on 11-18-2022 Calcium [Mass/Vol] 8.7 mg/dL 8.5-10.1 [facility] Serum or plasma creatinine m easurement (mass/volume)Ordered By: Mo Corea on 11-18-2022 Creatinine [Mass/Vol] 1.03 mg/dL 0.55-1.02 [facility] Comment on above: The validity of the calculated GFR & GFRAA in patients over 70 years has not been determined. Clinical correlation is essential. Serum or plasma urea nitroge n measurement (mass/volume)Ordered By: Mo Corea on 11-18-2022 Urea nitrogen [Mass/Vol] 14 mg/dL 7-18 [facility] Squamous epithelial cells de tection in urine sediment by light microscopyOrdered By: Mo Corea on 11-18-2022 Epithelial cells.squamous LM Ql (Urine sed) 0-5 SEEN /hpf 5-10 [facility] Thin prep Papanicolaou smear with manual screeningOrdered By: Mo Corea on 11-18-2022 Thin prep Papanicolaou smear with manual screening 15 U/L 15-37 [facility] Thin prep Papanicolaou smear with manual screening 2 5-15 [facility] Urine blood detectionOrdered By: Mo Corea on 11-18-2022 RBC Ql (U) Negative Negative [facility] RBC Ql (U) 0 SEEN /hpf 0-5 [facility] Urine clarityOrdered By: Rebecca Corea on 11-18-2022 Clarity (U) Sl. Cloudy Clear [facility] Urine color determinationOrd ered By: Mo Corea on 11-18-2022 Color (U) Yellow Yellow [facility] Urine glucose detectionOrder ed By: Mo Corea on 11-18-2022 Glucose Ql (U) Normal mg/dl Normal [facility] Urine leukocyte esterase det ection by dipstickOrdered By: Mo Corea on 11-18-2022 Leukocyte esterase Test strip Ql (U) 25 /ul Negative [facility] Urine pHOrdered By: Mo amado on 11-18-2022 pH (U) 7.0 [pH] 5.0 - 8.0 [facility] Urine sediment bacteria coun t by microscopy (number/high power field)Ordered By: Mo Corea on 11-18-2022 Bacteria LM.HPF (Urine sed) [#/Area] 0 /[HPF] None Seen [facility] Urine specific gravity measu rementOrdered By: Mo Corea on 11-18-2022 Specific gravity (U) [Rel density] 1.010 1.002-1.030 [facility] Urobilinogen Auto test strip Ql (U)Ordered By: Mo Corea on 11-18-2022 Urobilinogen Ql (U) Normal mg/dl Normal [facility] Absolute lymphocyte countOrd ered By: Sae Carballo on 11-15-2022 Lymphocytes Auto (Unsp spec) [#/Vol] 2.03 10*3/uL 0.83-4.51 [facility] Basophil percentageOrdered B y: Sae Kait on 11-15-2022 Basophils/100 WBC (Bld) 0.5 % 0-1 [facility] Chloride [Moles/Vol] 107 mmol/L 98-107 [facility] Cholesterol [Mass/Vol] 164 mg/dL <200 [facility] Comment on above: <200 mg/dL Desirable 200-240 mg/dL Borderline >240 mg/dL High Risk Eosinophils/100 WBC (Bld) 3.5 % 0-5 [facility] Glucose [Mass/Vol] 124 mg/dL 74-106 [facility] Comment on above: Fasting Glucose resu lt from 100 to 125 mg/dL suggests IMPAIRED HOMEOSTASIS per A.D.A. criteria. Neutrophils (Bld) [#/Vol] 4.7 10*3/uL 2.0-7.7 [facility] Neutrophils/100 WBC (Bld) 60.3 % 47-70 [facility] Potassium [Moles/Vol] 4.1 mmol/L 3.5-5.1 [facility] Sodium [Moles/Vol] 139 mmol/L 136-145 [facility] Triglyceride [Mass/Vol] 133 mg/dL <199 [facility] Comment on above: The drugs N-Acetylcy steine and Metamizole may falsely depress this assay.Serum Triglycerides Reference Interval Normal <150 mg/dL Borderline high 150 - 199 mg/dL High 200 - 499 mg/dL Very High > or = 500 mg/dL WBC (Bld) [#/Vol] 7.8 10*3/uL 4.4-11.0 [facility] Blood erythrocytes count (nu mber/volume)Ordered By: Sae Carballo on 11-15-2022 RBC (Bld) [#/Vol] 4.32 10*6/uL 4.2-5.4 [facility] Blood hemoglobin measurement (mass/volume)Ordered By: Sae Carballo on 11-15-2022 Hemoglobin (Bld) [Mass/Vol] 12.9 g/dL 12.0-15.0 [facility] Blood lymphocytes/100 leukoc ytesOrdered By: Sae Carballo on 11-15-2022 Lymphocytes/100 WBC (Bld) 26.2 % 19-41 [facility] Blood monocytes/100 leukocyt esOrdered By: Sae Carballo on 11-15-2022 Monocytes/100 WBC (Bld) 9.4 % 0-10 [facility] Blood platelet mean volumeOr dered By: Sae Carballo on 11-15-2022 Platelet mean volume (Bld) [Entitic vol] 10.6 fL 6.2-12.0 [facility] Determination of erythrocyte mean corpuscular volume (MCV)Ordered By: Sae Carballo on 11-15-2022 MCV (RBC) [Entitic vol] 91.7 fL 81-99 [facility] Hematocrit Auto (Bld) [Volum e fraction]Ordered By: Sae Carballo on 11-15-2022 Hematocrit (Bld) [Volume fraction] 39.6 % 37-47 [facility] INR in Blood by Coagulation assayOrdered By: Sae Carballo on 11-15-2022 INR Coag (Bld) [Relative time] 2.0 {INR} [facility] Laboratory - Chemistry and C hemistry - challengeOrdered By: Sae Carballo on 11-15-2022 CO2 [Moles/Vol] 25.0 mmol/L 21.0-32.0 [facility] Urea nitrogen/Creatinine [Mass ratio] 15.8 mg/mg 10-20 [facility] Laboratory - CoagulationOrde red By: Sae Carballo on 11-15-2022 PT Coag (PPP) [Time] 23.0 s 11.7-14.9 [facility] Laboratory - Hematology and Cell countsOrdered By: Sae Carballo on 11-15-2022 Erythrocyte distribution width (RBC) [Entitic vol] 43.4 fL 35.1-43.9 [facility] Erythrocyte distribution width (RBC) [Ratio] 12.9 % 11.6-14.6 [facility] Immature granulocytes/100 WBC (Bld) 0.100 % 0.0-0.9 [facility] Comment on above: IG% - Immature Granu locytes (promyelocytes, myelocytes and metamyelocytes) > 1% indicates that a LEFT SHIFT is Present. MCH (RBC) [Entitic mass] 29.9 pg 27.0-32.0 [facility] Nucleated RBC/100 WBC (Bld) [Ratio] 0 % 0-5 [facility] MCHC Auto (RBC) [Mass/Vol]Or dered By: Sae Carballo on 11-15-2022 MCHC (RBC) [Mass/Vol] 32.6 g/dL 32-36 [facility] No Panel InformationOrdered By: Sae Carballo on 11-15-2022 Estimated Creatinine Clearance Calc 37.26 ml/min [facility] Estimated GFR (MDRD) Amer 78 mL/min >60 [facility] Comment on above: GFR Calc Estimated GFR (MDRD) Non-Af Amer 64 mL/min >60 [facility] Comment on above: Non- GFR Calc Platelets bldOrdered By: Ramos Carballo on 11-15-2022 Platelets (Bld) [#/Vol] 278 10*3/uL 150-450 [facility] Serum or plasma calcium viktoria urement (mass/volume)Ordered By: Sae Carballo on 11-15-2022 Calcium [Mass/Vol] 8.5 mg/dL 8.5-10.1 [facility] Serum or plasma cholesterol in HDL measurement (mass/volume)Ordered By: Sae Carballo on 11-15-2022 Cholesterol in HDL [Mass/Vol] 49 mg/dL >40 [facility] Comment on above: The drugs N-Acetylcy steine and Metamizole may falsely depress this assay. Reference Range HDL <40 mg/dL Low HDL Cholesterol HDL >or= 60 mg/dL High HDL Cholesterol Serum or plasma cholesterol in VLDL measurement (mass/volume)Ordered By: Sae Carballo on 11-15-2022 Cholesterol in VLDL [Mass/Vol] 27 mg/dL 5-40 [facility] Serum or plasma creatinine m easurement (mass/volume)Ordered By: Sae Carballo on 11-15-2022 Creatinine [Mass/Vol] 0.88 mg/dL 0.55-1.02 [facility] Comment on above: The validity of the calculated GFR & GFRAA in patients over 70 years has not been determined. Clinical correlation is essential. Serum or plasma low density lipoprotein (LDL) cholesterol measurement (mass/volume)Ordered By: Sae Carballo on 11-15-2022 Cholesterol in LDL [Mass/Vol] 88 mg/dL 0-130 [facility] Serum or plasma urea nitroge n measurement (mass/volume)Ordered By: Sae Carballo on 11-15-2022 Urea nitrogen [Mass/Vol] 14 mg/dL 7-18 [facility] Thin prep Papanicolaou smear with manual screeningOrdered By: Sae Carballo on 11-15-2022 Thin prep Papanicolaou smear with manual screening 7 5-15 [facility] Absolute lymphocyte countOrd ered By: Neri Mitchell on 11-14-2022 Lymphocytes Auto (Unsp spec) [#/Vol] 2.35 10*3/uL 0.83-4.51 [facility] Basophil percentageOrdered B y: eNri Mitchell on 11-14-2022 Basophils/100 WBC (Bld) 0.6 % 0-1 [facility] Chloride [Moles/Vol] 104 mmol/L 98-107 [facility] Eosinophils/100 WBC (Bld) 2.4 % 0-5 [facility] Glucose [Mass/Vol] 135 mg/dL 74-106 [facility] Comment on above: Fasting Glucose resu lt greater than or equal to 126 mg/dL suggests DIABETES MELLITUS per A.D.A. criteria. Neutrophils (Bld) [#/Vol] 6.0 10*3/uL 2.0-7.7 [facility] Neutrophils/100 WBC (Bld) 64.0 % 47-70 [facility] Potassium [Moles/Vol] 4.0 mmol/L 3.5-5.1 [facility] Sodium [Moles/Vol] 138 mmol/L 136-145 [facility] WBC (Bld) [#/Vol] 9.4 10*3/uL 4.4-11.0 [facility] Blood erythrocytes count (nu mber/volume)Ordered By: Neri Mitchell on 11-14-2022 RBC (Bld) [#/Vol] 4.79 10*6/uL 4.2-5.4 [facility] Blood hemoglobin measurement (mass/volume)Ordered By: Neri Mitchell on 11-14-2022 Hemoglobin (Bld) [Mass/Vol] 14.3 g/dL 12.0-15.0 [facility] Blood lymphocytes/100 leukoc ytesOrdered By: Neri Mitchell on 11-14-2022 Lymphocytes/100 WBC (Bld) 24.9 % 19-41 [facility] Blood monocytes/100 leukocyt esOrdered By: Neri Mitchell on 11-14-2022 Monocytes/100 WBC (Bld) 7.8 % 0-10 [facility] Blood platelet mean volumeOr dered By: Neri Mitchell on 11-14-2022 Platelet mean volume (Bld) [Entitic vol] 10.6 fL 6.2-12.0 [facility] Determination of erythrocyte mean corpuscular volume (MCV)Ordered By: Neri Mitchell on 11-14-2022 MCV (RBC) [Entitic vol] 93.5 fL 81-99 [facility] Glucose Glucometer (dC) [M ass/Vol]Ordered By: Neri Mitchell on 11-14-2022 Glucose [Mass/Vol] 136 mg/dL 74-106 [facility] Comment on above: MANAGEMENT OF PATIEN T CARE PER NURSING PROTOCOL Hematocrit Auto (Bld) [Volum e fraction]Ordered By: Neri Mitchell on 11-14-2022 Hematocrit (Bld) [Volume fraction] 44.8 % 37-47 [facility] INR in Blood by Coagulation assayOrdered By: Neri Mitchell on 11-14-2022 INR Coag (Bld) [Relative time] 1.8 {INR} [facility] Laboratory - Chemistry and C hemistry - challengeOrdered By: Neri Mitchell on 11-14-2022 CO2 [Moles/Vol] 28.0 mmol/L 21.0-32.0 [facility] Urea nitrogen/Creatinine [Mass ratio] 12.3 mg/mg 10-20 [facility] Laboratory - CoagulationOrde red By: Neri Mitchell on 11-14-2022 aPTT Coag (Bld) [Time] 43.3 s 24.1-36.2 [facility] PT Coag (PPP) [Time] 21.3 s 11.7-14.9 [facility] Laboratory - Hematology and Cell countsOrdered By: Neri Mitchell on 11-14-2022 Erythrocyte distribution width (RBC) [Entitic vol] 44.7 fL 35.1-43.9 [facility] Erythrocyte distribution width (RBC) [Ratio] 13.0 % 11.6-14.6 [facility] Immature granulocytes/100 WBC (Bld) 0.300 % 0.0-0.9 [facility] Comment on above: IG% - Immature Granu locytes (promyelocytes, myelocytes and metamyelocytes) > 1% indicates that a LEFT SHIFT is Present. MCH (RBC) [Entitic mass] 29.9 pg 27.0-32.0 [facility] Nucleated RBC/100 WBC (Bld) [Ratio] 0 % 0-5 [facility] MCHC Auto (RBC) [Mass/Vol]Or dered By: Neri Mitchell on 11-14-2022 MCHC (RBC) [Mass/Vol] 31.9 g/dL 32-36 [facility] No Panel InformationOrdered By: Neri Mitchell on 11-14-2022 Estimated Creatinine Clearance Calc 28.76 ml/min [facility] Estimated GFR (MDRD) Amer 58 mL/min >60 [facility] Comment on above: GFR Calc Estimated GFR (MDRD) Non-Af Amer 48 mL/min >60 [facility] Comment on above: Non- GFR Calc Troponin I High Sensitivity 10 pg/mL 3.0-54.0 [facility] Comment on above: Please Note: New Evon t Units and Gender Specific Reference Ranges. For more information see Policy Stat Procedure Cornelius High Sensitivity Troponin (TNIH) and attachments. Platelets bldOrdered By: Prasad Mitchell on 11-14-2022 Platelets (Bld) [#/Vol] 313 10*3/uL 150-450 [facility] Serum or plasma calcium viktoria urement (mass/volume)Ordered By: Neri Mitchell on 11-14-2022 Calcium [Mass/Vol] 9.0 mg/dL 8.5-10.1 [facility] Serum or plasma creatinine m easurement (mass/volume)Ordered By: Neri Mitchell on 11-14-2022 Creatinine [Mass/Vol] 1.14 mg/dL 0.55-1.02 [facility] Comment on above: The validity of the calculated GFR & GFRAA in patients over 70 years has not been determined. Clinical correlation is essential. Serum or plasma urea nitroge n measurement (mass/volume)Ordered By: Neri Mitchell on 11-14-2022 Urea nitrogen [Mass/Vol] 14 mg/dL 7-18 [facility] Thin prep Papanicolaou smear with manual screeningOrdered By: Neri Mitchell on 11-14-2022 Thin prep Papanicolaou smear with manual screening 6 - [facility] INR in Blood by Coagulation assayOrdered By: Dr. Juarez on 09-18-2022 INR Coag (Bld) [Relative time] 1.8 {INR} [facility] Laboratory - CoagulationOrde red By: Dr. Juarez on 09-18-2022 PT Coag (PPP) [Time] 20.9 s 11.7-14.9 [facility] No Panel InformationOrdered By: Anant Juarez on 09-18-2022 Free Lambda Light Chains, Quant 15.7 mg/L 5.7-26.3 [facility] Whole Blood Vitamin B1 Level 111.8 nmol/L 66.5-200.0 [facility] Comment on above: Performed at: - [address] [id number] Director: Master Vee PhD, Phone: [phone] at: - [facility] [id number] Director: Brandon Wells MD, Phone: [phone] Serum immunoglobulin kappa l ight chains/immunoglobulin lambda light chains mass ratioOrdered By: Anant Juarez on 09-18-2022 Immunoglobulin light chains.kappa/Immunoglobul in light chains.lambda (S) [Mass ratio] 1.74 0.26-1.65 [facility] Serum or plasma folate measu rement (mass/volume)Ordered By: Dr. Juarez on 09-18-2022 Folate [Mass/Vol] 51.90 ng/mL 3.1-55.4 [facility] Comment on above: Slight Hemolysis, Re sult may be falsely increased. Serum or plasma immunoglobul in kappa light chains measurement (mass/volume)Ordered By: Anant Juarez on 09-18-2022 Immunoglobulin light chains.kappa [Mass/Vol] 27.3 mg/L 3.3-19.4 [facility] Culture, urineOrdered By: Slim Doran on 09-17-2022 Bacteria identified Cx Nom (U) Streptococcus agalactiae (B) [facility] INR in Blood by Coagulation assayOrdered By: Dr. Doran on 09-13-2022 INR Coag (Bld) [Relative time] 1.5 {INR} [facility] Laboratory - CoagulationOrde red By: Dr. Doran on 09-13-2022 PT Coag (PPP) [Time] 18.1 s 11.7-14.9 [facility] Absolute lymphocyte countOrd ered By: Dr. Barcenas on 09-08-2022 Lymphocytes Auto (Unsp spec) [#/Vol] 2.60 10*3/uL 0.83-4.51 [facility] Basophil percentageOrdered B y: Dr. Barcenas on 09-08-2022 Basophil percentage 0 SEEN /hpf 0-5 [facility] Basophils/100 WBC (Bld) 0.4 % 0-1 [facility] Bilirubin [Mass/Vol] 0.30 mg/dL 0.20-1.00 [facility] Comment on above: For patients on eltr ombopag therapy, use of Dimension Cornelius TBIL is not recommended. Chloride [Moles/Vol] 103 mmol/L 98-107 [facility] Eosinophils/100 WBC (Bld) 2.3 % 0-5 [facility] Glucose [Mass/Vol] 78 mg/dL 74-106 [facility] Neutrophils (Bld) [#/Vol] 5.2 10*3/uL 2.0-7.7 [facility] Neutrophils/100 WBC (Bld) 57.4 % 47-70 [facility] Potassium [Moles/Vol] 3.8 mmol/L 3.5-5.1 [facility] Protein [Mass/Vol] 6.9 g/dL 6.4-8.2 [facility] Sodium [Moles/Vol] 139 mmol/L 136-145 [facility] WBC (Bld) [#/Vol] 9.1 10*3/uL 4.4-11.0 [facility] Bilirubin Test strip Ql (U)O rdered By: Dr. Barcenas on 09-08-2022 Bilirubin Ql (U) Negative Negative [facility] Blood erythrocytes count (nu mber/volume)Ordered By: Dr. Barcenas on 09-08-2022 RBC (Bld) [#/Vol] 4.48 10*6/uL 4.2-5.4 [facility] Blood hemoglobin measurement (mass/volume)Ordered By: Dr. Barcenas on 09-08-2022 Hemoglobin (Bld) [Mass/Vol] 13.4 g/dL 12.0-15.0 [facility] Blood lymphocytes/100 leukoc ytesOrdered By: Dr. Barcenas on 09-08-2022 Lymphocytes/100 WBC (Bld) 28.5 % 19-41 [facility] Blood monocytes/100 leukocyt esOrdered By: Dr. Barcenas on 09-08-2022 Monocytes/100 WBC (Bld) 11.1 % 0-10 [facility] Blood platelet mean volumeOr dered By: Dr. Barcenas on 09-08-2022 Platelet mean volume (Bld) [Entitic vol] 10.7 fL 6.2-12.0 [facility] Determination of erythrocyte mean corpuscular volume (MCV)Ordered By: Dr. Barcenas on 09-08-2022 MCV (RBC) [Entitic vol] 92.4 fL 81-99 [facility] Hematocrit Auto (Bld) [Volum e fraction]Ordered By: Dr. Barcenas on 09-08-2022 Hematocrit (Bld) [Volume fraction] 41.4 % 37-47 [facility] INR in Blood by Coagulation assayOrdered By: Dr. Barcenas on 09-08-2022 INR Coag (Bld) [Relative time] 1.0 {INR} [facility] Ketones Test strip Ql (U)Ord ered By: Dr. Barcenas on 09-08-2022 Ketones Ql (U) Negative Negative [facility] Laboratory - Chemistry and C hemistry - challengeOrdered By: Dr. Barcenas on 09-08-2022 ALP [Catalytic activity/Vol] 71 U/L 45-117 [facility] ALT [Catalytic activity/Vol] 9 U/L 13-56 [facility] CO2 [Moles/Vol] 30.0 mmol/L 21.0-32.0 [facility] Globulin (S) [Mass/Vol] 3.7 g/dL 2.2-4.2 [facility] Urea nitrogen/Creatinine [Mass ratio] 17.1 mg/mg 10-20 [facility] Laboratory - CoagulationOrde red By: Dr. Barcenas on 09-08-2022 PT Coag (PPP) [Time] 13.6 s 11.7-14.9 [facility] Laboratory - Hematology and Cell countsOrdered By: Dr. Barcenas on 09-08-2022 Erythrocyte distribution width (RBC) [Entitic vol] 44.8 fL 35.1-43.9 [facility] Erythrocyte distribution width (RBC) [Ratio] 13.2 % 11.6-14.6 [facility] Immature granulocytes/100 WBC (Bld) 0.300 % 0.0-0.9 [facility] Comment on above: IG% - Immature Granu locytes (promyelocytes, myelocytes and metamyelocytes) > 1% indicates that a LEFT SHIFT is Present. MCH (RBC) [Entitic mass] 29.9 pg 27.0-32.0 [facility] Nucleated RBC/100 WBC (Bld) [Ratio] 0 % 0-5 [facility] MCHC Auto (RBC) [Mass/Vol]Or dered By: Dr. Barcenas on 09-08-2022 MCHC (RBC) [Mass/Vol] 32.4 g/dL 32-36 [facility] Mucus LM Ql (Urine sed)Order ed By: Dr. Barcenas on 09-08-2022 Mucus Ql (Urine sed) 0 SEEN /hpf [facility] Nitrite Test strip Ql (U)Ord ered By: Dr. Barcenas on 09-08-2022 Nitrite Ql (U) Negative Negative [facility] No Panel InformationOrdered By: Dr. Barcenas on 09-08-2022 Estimated Creatinine Clearance Calc 31.23 ml/min [facility] Estimated GFR (MDRD) Amer 64 mL/min >60 [facility] Comment on above: GFR Calc Estimated GFR (MDRD) Non-Af Amer 53 mL/min >60 [facility] Comment on above: Non- GFR Calc Troponin I High Sensitivity 86 pg/mL 3.0-54.0 [facility] Comment on above: Please Note: New Evon t Units and Gender Specific Reference Ranges. For more information see Policy Stat Procedure Cornelius High Sensitivity Troponin (TNIH) and attachments. Platelets bldOrdered By: Dr. Barcenas on 09-08-2022 Platelets (Bld) [#/Vol] 294 10*3/uL 150-450 [facility] Protein Test strip Ql (U)Ord ered By: Dr. Barcenas on 09-08-2022 Protein Ql (U) Negative Negative [facility] Serum or plasma albumin viktoria urement (mass/volume)Ordered By: Dr. Barcenas on 09-08-2022 Albumin [Mass/Vol] 3.2 g/dL 3.2-5.0 [facility] Serum or plasma albumin/glob ulin mass ratioOrdered By: Dr. Barcenas on 09-08-2022 Albumin/Globulin [Mass ratio] 0.9 {ratio} 0.9-2.4 [facility] Serum or plasma calcium viktoria urement (mass/volume)Ordered By: Dr. Barcenas on 09-08-2022 Calcium [Mass/Vol] 8.8 mg/dL 8.5-10.1 [facility] Serum or plasma creatinine m easurement (mass/volume)Ordered By: Dr. Barcenas on 09-08-2022 Creatinine [Mass/Vol] 1.05 mg/dL 0.55-1.02 [facility] Comment on above: The validity of the calculated GFR & GFRAA in patients over 70 years has not been determined. Clinical correlation is essential. Serum or plasma urea nitroge n measurement (mass/volume)Ordered By: Dr. Barcenas on 09-08-2022 Urea nitrogen [Mass/Vol] 18 mg/dL 7-18 [facility] Squamous epithelial cells de tection in urine sediment by light microscopyOrdered By: Dr. Barcenas on 09-08-2022 Epithelial cells.squamous LM Ql (Urine sed) 0-5 SEEN /hpf 5-10 [facility] Thin prep Papanicolaou smear with manual screeningOrdered By: Dr. Barcenas on 09-08-2022 Thin prep Papanicolaou smear with manual screening 9 U/L 15-37 [facility] Thin prep Papanicolaou smear with manual screening 6 5-15 [facility] Urine blood detectionOrdered By: Dr. Barcenas on 09-08-2022 RBC Ql (U) Negative Negative [facility] RBC Ql (U) 0 SEEN /hpf 0-5 [facility] Urine clarityOrdered By: Dr. Barcenas on 09-08-2022 Clarity (U) Clear Clear [facility] Urine color determinationOrd ered By: Dr. Barcenas on 09-08-2022 Color (U) Yellow Yellow [facility] Urine glucose detectionOrder ed By: Dr. Barcenas on 09-08-2022 Glucose Ql (U) Normal mg/dl Normal [facility] Urine leukocyte esterase det ection by dipstickOrdered By: Dr. Barcenas on 09-08-2022 Leukocyte esterase Test strip Ql (U) Negative Negative [facility] Urine pHOrdered By: Dr. Moody leal on 09-08-2022 pH (U) 6.5 [pH] 5.0 - 8.0 [facility] Urine sediment bacteria coun t by microscopy (number/high power field)Ordered By: Dr. Barcenas on 09-08-2022 Bacteria LM.HPF (Urine sed) [#/Area] 0 /[HPF] None Seen [facility] Urine specific gravity measu rementOrdered By: Dr. Barcenas on 09-08-2022 Specific gravity (U) [Rel density] 1.010 1.002-1.030 [facility] Urobilinogen Auto test strip Ql (U)Ordered By: Dr. Barcenas on 09-08-2022 Urobilinogen Ql (U) Normal mg/dl Normal [facility] Absolute lymphocyte countOrd ered By: Dr. Doran on 09-05-2022 Lymphocytes Auto (Unsp spec) [#/Vol] 1.27 10*3/uL 0.83-4.51 [facility] Basophil percentageOrdered B y: Dr. Doran on 09-05-2022 Basophils/100 WBC (Bld) 0.4 % 0-1 [facility] Chloride [Moles/Vol] 106 mmol/L 98-107 [facility] Eosinophils/100 WBC (Bld) 1.0 % 0-5 [facility] Glucose [Mass/Vol] 202 mg/dL 74-106 [facility] Comment on above: Glucose result great er than or equal to 200 mg/dLsuggests DIABETES MELLITUS per A.D.A. criteria. Neutrophils (Bld) [#/Vol] 8.3 10*3/uL 2.0-7.7 [facility] Neutrophils/100 WBC (Bld) 79.7 % 47-70 [facility] Potassium [Moles/Vol] 3.7 mmol/L 3.5-5.1 [facility] Sodium [Moles/Vol] 139 mmol/L 136-145 [facility] WBC (Bld) [#/Vol] 10.4 10*3/uL 4.4-11.0 [facility] Blood erythrocytes count (nu mber/volume)Ordered By: Dr. Doran on 09-05-2022 RBC (Bld) [#/Vol] 4.72 10*6/uL 4.2-5.4 [facility] Blood hemoglobin measurement (mass/volume)Ordered By: Dr. Doran on 09-05-2022 Hemoglobin (Bld) [Mass/Vol] 14.1 g/dL 12.0-15.0 [facility] Blood lymphocytes/100 leukoc ytesOrdered By: Dr. Doran on 09-05-2022 Lymphocytes/100 WBC (Bld) 12.3 % 19-41 [facility] Blood monocytes/100 leukocyt esOrdered By: Dr. Doran on 09-05-2022 Monocytes/100 WBC (Bld) 6.3 % 0-10 [facility] Blood platelet mean volumeOr dered By: Dr. Doran on 09-05-2022 Platelet mean volume (Bld) [Entitic vol] 11.2 fL 6.2-12.0 [facility] Determination of erythrocyte mean corpuscular volume (MCV)Ordered By: Dr. Doran on 09-05-2022 MCV (RBC) [Entitic vol] 93.9 fL 81-99 [facility] Hematocrit Auto (Bld) [Volum e fraction]Ordered By: Dr. Doran on 09-05-2022 Hematocrit (Bld) [Volume fraction] 44.3 % 37-47 [facility] INR in Blood by Coagulation assayOrdered By: Dr. Doran on 09-05-2022 INR Coag (Bld) [Relative time] 1.1 {INR} [facility] Laboratory - Chemistry and C hemistry - challengeOrdered By: Dr. Doran on 09-05-2022 CO2 [Moles/Vol] 24.0 mmol/L 21.0-32.0 [facility] Urea nitrogen/Creatinine [Mass ratio] 18.3 mg/mg 10-20 [facility] Laboratory - CoagulationOrde red By: Dr. Doran on 09-05-2022 PT Coag (PPP) [Time] 13.8 s 11.7-14.9 [facility] Laboratory - Hematology and Cell countsOrdered By: Dr. Doran on 09-05-2022 Erythrocyte distribution width (RBC) [Entitic vol] 45.5 fL 35.1-43.9 [facility] Erythrocyte distribution width (RBC) [Ratio] 13.2 % 11.6-14.6 [facility] Immature granulocytes/100 WBC (Bld) 0.300 % 0.0-0.9 [facility] Comment on above: IG% - Immature Granu locytes (promyelocytes, myelocytes and metamyelocytes) > 1% indicates that a LEFT SHIFT is Present. MCH (RBC) [Entitic mass] 29.9 pg 27.0-32.0 [facility] Nucleated RBC/100 WBC (Bld) [Ratio] 0 % 0-5 [facility] MCHC Auto (RBC) [Mass/Vol]Or dered By: Dr. Doran on 09-05-2022 MCHC (RBC) [Mass/Vol] 31.8 g/dL 32-36 [facility] No Panel InformationOrdered By: Dr. Doran on 09-05-2022 Estimated GFR (MDRD) Amer 61 mL/min >60 [facility] Comment on above: GFR Calc Estimated GFR (MDRD) Non-Af Amer 50 mL/min >60 [facility] Comment on above: Non- GFR Calc Thyroid Stimulating Hormone (TSH) 2.84 uIU/mL 0.358-3.74 [facility] Platelets bldOrdered By: Dr. Doran on 09-05-2022 Platelets (Bld) [#/Vol] 311 10*3/uL 150-450 [facility] Serum or plasma calcium viktoria urement (mass/volume)Ordered By: Dr. Doran on 09-05-2022 Calcium [Mass/Vol] 8.8 mg/dL 8.5-10.1 [facility] Serum or plasma creatinine m easurement (mass/volume)Ordered By: Dr. Doran on 09-05-2022 Creatinine [Mass/Vol] 1.09 mg/dL 0.55-1.02 [facility] Comment on above: The validity of the calculated GFR & GFRAA in patients over 70 years has not been determined. Clinical correlation is essential. Serum or plasma urea nitroge n measurement (mass/volume)Ordered By: Dr. Doran on 09-05-2022 Urea nitrogen [Mass/Vol] 20 mg/dL 7-18 [facility] Thin prep Papanicolaou smear with manual screeningOrdered By: Dr. Doran on 09-05-2022 Thin prep Papanicolaou smear with manual screening 9 5-15 [facility] Absolute lymphocyte countOrd ered By: Dr. Doran on 08-08-2022 Lymphocytes Auto (Unsp spec) [#/Vol] 1.97 10*3/uL 0.83-4.51 [facility] Basophil percentageOrdered B y: Dr. Doran on 08-08-2022 Basophils/100 WBC (Bld) 0.5 % 0-1 [facility] Chloride [Moles/Vol] 105 mmol/L 98-107 [facility] Eosinophils/100 WBC (Bld) 3.2 % 0-5 [facility] Glucose [Mass/Vol] 147 mg/dL 74-106 [facility] Comment on above: Fasting Glucose resu lt greater than or equal to 126 mg/dL suggests DIABETES MELLITUS per A.D.A. criteria. Neutrophils (Bld) [#/Vol] 4.6 10*3/uL 2.0-7.7 [facility] Neutrophils/100 WBC (Bld) 60.9 % 47-70 [facility] Potassium [Moles/Vol] 4.9 mmol/L 3.5-5.1 [facility] Sodium [Moles/Vol] 140 mmol/L 136-145 [facility] WBC (Bld) [#/Vol] 7.5 10*3/uL 4.4-11.0 [facility] Blood erythrocytes count (nu mber/volume)Ordered By: Dr. Doran on 08-08-2022 RBC (Bld) [#/Vol] 4.73 10*6/uL 4.2-5.4 [facility] Blood hemoglobin measurement (mass/volume)Ordered By: Dr. Doran on 08-08-2022 Hemoglobin (Bld) [Mass/Vol] 14.0 g/dL 12.0-15.0 [facility] Blood lymphocytes/100 leukoc ytesOrdered By: Dr. Doran on 08-08-2022 Lymphocytes/100 WBC (Bld) 26.2 % 19-41 [facility] Blood monocytes/100 leukocyt esOrdered By: Dr. Doran on 08-08-2022 Monocytes/100 WBC (Bld) 8.8 % 0-10 [facility] Blood platelet mean volumeOr dered By: Dr. Doran on 08-08-2022 Platelet mean volume (Bld) [Entitic vol] 10.9 fL 6.2-12.0 [facility] Determination of erythrocyte mean corpuscular volume (MCV)Ordered By: Dr. Doran on 08-08-2022 MCV (RBC) [Entitic vol] 94.1 fL 81-99 [facility] Hematocrit Auto (Bld) [Volum e fraction]Ordered By: Dr. Doran on 08-08-2022 Hematocrit (Bld) [Volume fraction] 44.5 % 37-47 [facility] Laboratory - Chemistry and C hemistry - challengeOrdered By: Dr. Doran on 08-08-2022 CO2 [Moles/Vol] 29.0 mmol/L 21.0-32.0 [facility] Cobalamin (Vitamin B12) [Mass/Vol] 853 pg/mL 211-911 [facility] Urea nitrogen/Creatinine [Mass ratio] 18.3 mg/mg 10-20 [facility] Laboratory - Hematology and Cell countsOrdered By: Dr. Doran on 08-08-2022 Erythrocyte distribution width (RBC) [Entitic vol] 45.5 fL 35.1-43.9 [facility] Erythrocyte distribution width (RBC) [Ratio] 13.2 % 11.6-14.6 [facility] Immature granulocytes/100 WBC (Bld) 0.400 % 0.0-0.9 [facility] Comment on above: IG% - Immature Granu locytes (promyelocytes, myelocytes and metamyelocytes) > 1% indicates that a LEFT SHIFT is Present. MCH (RBC) [Entitic mass] 29.6 pg 27.0-32.0 [facility] Nucleated RBC/100 WBC (Bld) [Ratio] 0 % 0-5 [facility] MCHC Auto (RBC) [Mass/Vol]Or dered By: Dr. Doran on 08-08-2022 MCHC (RBC) [Mass/Vol] 31.5 g/dL 32-36 [facility] No Panel InformationOrdered By: Dr. Doran on 08-08-2022 Estimated GFR (MDRD) Amer 57 mL/min >60 [facility] Comment on above: GFR Calc Estimated GFR (MDRD) Non-Af Amer 47 mL/min >60 [facility] Comment on above: Non- GFR Calc Vitamin D 25-Hydroxy 35.5 ng/mL [facility] Comment on above: Vitamin D 25(OH) Sta tus Range Deficiency <20 ng/mL (50nmol/L) Insufficiency 20 - 30 ng/mL (50 - 75 nmol/L) Sufficiency 30 - 100 ng/mL (75 - 250 nmol/L) Toxicity >100 ng/mL (>250 nmol/L) Platelets bldOrdered By: Dr. Doran on 08-08-2022 Platelets (Bld) [#/Vol] 365 10*3/uL 150-450 [facility] Serum or plasma calcium viktoria urement (mass/volume)Ordered By: Dr. Doran on 08-08-2022 Calcium [Mass/Vol] 9.2 mg/dL 8.5-10.1 [facility] Serum or plasma creatinine m easurement (mass/volume)Ordered By: Dr. Doran on 08-08-2022 Creatinine [Mass/Vol] 1.15 mg/dL 0.55-1.02 [facility] Comment on above: The validity of the calculated GFR & GFRAA in patients over 70 years has not been determined. Clinical correlation is essential. Serum or plasma ferritin rich surement (mass/volume)Ordered By: Dr. Doran on 08-08-2022 Ferritin [Mass/Vol] 83 ng/mL 8-252 [facility] Serum or plasma urea nitroge n measurement (mass/volume)Ordered By: Dr. Doran on 08-08-2022 Urea nitrogen [Mass/Vol] 21 mg/dL 7-18 [facility] Thin prep Papanicolaou smear with manual screeningOrdered By: Dr. Doran on 08-08-2022 Thin prep Papanicolaou smear with manual screening 6 5-15 [facility] Absolute lymphocyte countOrd ered By: Dr. Doran on 06-26-2022 Lymphocytes Auto (Unsp spec) [#/Vol] 2.42 10*3/uL 0.83-4.51 [facility] Basophil percentageOrdered B y: Dr. Doran on 06-26-2022 Basophils/100 WBC (Bld) 0.5 % 0-1 [facility] Bilirubin [Mass/Vol] 0.40 mg/dL 0.20-1.00 [facility] Comment on above: For patients on eltr ombopag therapy, use of Dimension Cornelius TBIL is not recommended. Chloride [Moles/Vol] 106 mmol/L 98-107 [facility] Cholesterol [Mass/Vol] 163 mg/dL <200 [facility] Comment on above: <200 mg/dL Desirable 200-240 mg/dL Borderline >240 mg/dL High Risk Eosinophils/100 WBC (Bld) 4.2 % 0-5 [facility] Glucose [Mass/Vol] 142 mg/dL 74-106 [facility] Comment on above: Fasting Glucose resu lt greater than or equal to 126 mg/dL suggests DIABETES MELLITUS per A.D.A. criteria. Neutrophils (Bld) [#/Vol] 3.9 10*3/uL 2.0-7.7 [facility] Neutrophils/100 WBC (Bld) 53.1 % 47-70 [facility] Potassium [Moles/Vol] 4.3 mmol/L 3.5-5.1 [facility] Protein [Mass/Vol] 6.9 g/dL 6.4-8.2 [facility] Sodium [Moles/Vol] 139 mmol/L 136-145 [facility] Triglyceride [Mass/Vol] 178 mg/dL <199 [facility] Comment on above: The drugs N-Acetylcy steine and Metamizole may falsely depress this assay.Serum Triglycerides Reference Interval Normal <150 mg/dL Borderline high 150 - 199 mg/dL High 200 - 499 mg/dL Very High > or = 500 mg/dL WBC (Bld) [#/Vol] 7.4 10*3/uL 4.4-11.0 [facility] Blood erythrocytes count (nu mber/volume)Ordered By: Dr. Doran on 06-26-2022 RBC (Bld) [#/Vol] 4.51 10*6/uL 4.2-5.4 [facility] Blood hemoglobin measurement (mass/volume)Ordered By: Dr. Doran on 06-26-2022 Hemoglobin (Bld) [Mass/Vol] 13.5 g/dL 12.0-15.0 [facility] Blood lymphocytes/100 leukoc ytesOrdered By: Dr. Doran on 06-26-2022 Lymphocytes/100 WBC (Bld) 32.9 % 19-41 [facility] Blood monocytes/100 leukocyt esOrdered By: Dr. Doran on 06-26-2022 Monocytes/100 WBC (Bld) 9.0 % 0-10 [facility] Blood platelet mean volumeOr dered By: Dr. Doran on 06-26-2022 Platelet mean volume (Bld) [Entitic vol] 10.2 fL 6.2-12.0 [facility] Determination of erythrocyte mean corpuscular volume (MCV)Ordered By: Dr. Doran on 06-26-2022 MCV (RBC) [Entitic vol] 92.5 fL 81-99 [facility] Hematocrit Auto (Bld) [Volum e fraction]Ordered By: Dr. Doran on 06-26-2022 Hematocrit (Bld) [Volume fraction] 41.7 % 37-47 [facility] Laboratory - Chemistry and C hemistry - challengeOrdered By: Dr. Doran on 06-26-2022 ALP [Catalytic activity/Vol] 69 U/L 45-117 [facility] ALT [Catalytic activity/Vol] 13 U/L 13-56 [facility] CO2 [Moles/Vol] 29.0 mmol/L 21.0-32.0 [facility] Globulin (S) [Mass/Vol] 3.7 g/dL 2.2-4.2 [facility] Urea nitrogen/Creatinine [Mass ratio] 18.0 mg/mg 10-20 [facility] Laboratory - Hematology and Cell countsOrdered By: Dr. Doran on 06-26-2022 Erythrocyte distribution width (RBC) [Entitic vol] 43.9 fL 35.1-43.9 [facility] Erythrocyte distribution width (RBC) [Ratio] 12.9 % 11.6-14.6 [facility] Immature granulocytes/100 WBC (Bld) 0.300 % 0.0-0.9 [facility] Comment on above: IG% - Immature Granu locytes (promyelocytes, myelocytes and metamyelocytes) > 1% indicates that a LEFT SHIFT is Present. MCH (RBC) [Entitic mass] 29.9 pg 27.0-32.0 [facility] Nucleated RBC/100 WBC (Bld) [Ratio] 0 % 0-5 [facility] MCHC Auto (RBC) [Mass/Vol]Or dered By: Dr. Doran on 06-26-2022 MCHC (RBC) [Mass/Vol] 32.4 g/dL 32-36 [facility] No Panel InformationOrdered By: Dr. Doran on 06-26-2022 Estimated GFR (MDRD) Amer 60 mL/min >60 [facility] Comment on above: GFR Calc Estimated GFR (MDRD) Non-Af Amer 49 mL/min >60 [facility] Comment on above: Non- GFR Calc Platelets bldOrdered By: Dr. Doran on 06-26-2022 Platelets (Bld) [#/Vol] 314 10*3/uL 150-450 [facility] Serum or plasma albumin viktoria urement (mass/volume)Ordered By: Dr. Doran on 06-26-2022 Albumin [Mass/Vol] 3.2 g/dL 3.2-5.0 [facility] Serum or plasma albumin/glob ulin mass ratioOrdered By: Dr. Doran on 06-26-2022 Albumin/Globulin [Mass ratio] 0.9 {ratio} 0.9-2.4 [facility] Serum or plasma calcium viktoria urement (mass/volume)Ordered By: Dr. Doran on 06-26-2022 Calcium [Mass/Vol] 8.8 mg/dL 8.5-10.1 [facility] Serum or plasma cholesterol in HDL measurement (mass/volume)Ordered By: Dr. Doran on 06-26-2022 Cholesterol in HDL [Mass/Vol] 47 mg/dL >40 [facility] Comment on above: The drugs N-Acetylcy steine and Metamizole may falsely depress this assay. Reference Range HDL <40 mg/dL Low HDL Cholesterol HDL >or= 60 mg/dL High HDL Cholesterol Serum or plasma cholesterol in VLDL measurement (mass/volume)Ordered By: Dr. Doran on 06-26-2022 Cholesterol in VLDL [Mass/Vol] 36 mg/dL 5-40 [facility] Serum or plasma creatinine m easurement (mass/volume)Ordered By: Dr. Doran on 06-26-2022 Creatinine [Mass/Vol] 1.11 mg/dL 0.55-1.02 [facility] Comment on above: The validity of the calculated GFR & GFRAA in patients over 70 years has not been determined. Clinical correlation is essential. Serum or plasma low density lipoprotein (LDL) cholesterol measurement (mass/volume)Ordered By: Dr. Doran on 06-26-2022 Cholesterol in LDL [Mass/Vol] 80 mg/dL 0-130 [facility] Serum or plasma urea nitroge n measurement (mass/volume)Ordered By: Dr. Doran on 06-26-2022 Urea nitrogen [Mass/Vol] 20 mg/dL 7-18 [facility] Thin prep Papanicolaou smear with manual screeningOrdered By: Dr. Doran on 06-26-2022 Thin prep Papanicolaou smear with manual screening 15 U/L 15-37 [facility] Thin prep Papanicolaou smear with manual screening 4 5-15 [facility] Absolute lymphocyte countOrd ered By: Reese Shankar on 02-11-2022 Lymphocytes Auto (Unsp spec) [#/Vol] 1.50 10*3/uL 0.83-4.51 [facility] Basophil percentageOrdered B y: Reese Shankar on 02-11-2022 Basophils/100 WBC (Bld) 0.4 % 0-1 [facility] Chloride [Moles/Vol] 102 mmol/L 98-107 [facility] Eosinophils/100 WBC (Bld) 1.7 % 0-5 [facility] Glucose [Mass/Vol] 153 mg/dL 74-106 [facility] Comment on above: Fasting Glucose resu lt greater than or equal to 126 mg/dL suggests DIABETES MELLITUS per A.D.A. criteria. Neutrophils (Bld) [#/Vol] 10.0 10*3/uL 2.0-7.7 [facility] Neutrophils/100 WBC (Bld) 79.1 % 47-70 [facility] Potassium [Moles/Vol] 3.9 mmol/L 3.5-5.1 [facility] Sodium [Moles/Vol] 138 mmol/L 136-145 [facility] WBC (Bld) [#/Vol] 12.7 10*3/uL 4.4-11.0 [facility] Blood erythrocytes count (nu mber/volume)Ordered By: Reese Shankar on 02-11-2022 RBC (Bld) [#/Vol] 4.24 10*6/uL 4.2-5.4 [facility] Blood hemoglobin measurement (mass/volume)Ordered By: Reese Shankar on 02-11-2022 Hemoglobin (Bld) [Mass/Vol] 12.8 g/dL 12.0-15.0 [facility] Blood lymphocytes/100 leukoc ytesOrdered By: Reese Shankar on 02-11-2022 Lymphocytes/100 WBC (Bld) 11.8 % 19-41 [facility] Blood monocytes/100 leukocyt esOrdered By: Reese Shankar on 02-11-2022 Monocytes/100 WBC (Bld) 6.7 % 0-10 [facility] Blood platelet mean volumeOr dered By: Reese Shankar on 02-11-2022 Platelet mean volume (Bld) [Entitic vol] 11.0 fL 6.2-12.0 [facility] Determination of erythrocyte mean corpuscular volume (MCV)Ordered By: Reese Shankar on 02-11-2022 MCV (RBC) [Entitic vol] 91.7 fL 81-99 [facility] Hematocrit Auto (Bld) [Volum e fraction]Ordered By: Reese Shankar on 02-11-2022 Hematocrit (Bld) [Volume fraction] 38.9 % 37-47 [facility] INR in Blood by Coagulation assayOrdered By: Reees Shankar on 02-11-2022 INR Coag (Bld) [Relative time] 2.7 {INR} [facility] Laboratory - Chemistry and C hemistry - challengeOrdered By: Reese Shankar on 02-11-2022 CO2 [Moles/Vol] 26.0 mmol/L 21.0-32.0 [facility] Magnesium [Mass/Vol] 2.2 mg/dL 1.6-2.6 [facility] Urea nitrogen/Creatinine [Mass ratio] 18.5 mg/mg 10-20 [facility] Laboratory - CoagulationOrde red By: Reese Shankar on 02-11-2022 PT Coag (PPP) [Time] 28.0 s 11.7-14.9 [facility] Laboratory - Hematology and Cell countsOrdered By: Reese Shankar on 02-11-2022 Erythrocyte distribution width (RBC) [Entitic vol] 43.5 fL 35.1-43.9 [facility] Erythrocyte distribution width (RBC) [Ratio] 12.9 % 11.6-14.6 [facility] Immature granulocytes/100 WBC (Bld) 0.300 % 0.0-0.9 [facility] Comment on above: IG% - Immature Granu locytes (promyelocytes, myelocytes and metamyelocytes) > 1% indicates that a LEFT SHIFT is Present. MCH (RBC) [Entitic mass] 30.2 pg 27.0-32.0 [facility] Nucleated RBC/100 WBC (Bld) [Ratio] 0 % 0-5 [facility] MCHC Auto (RBC) [Mass/Vol]Or dered By: Reese Shankar on 02-11-2022 MCHC (RBC) [Mass/Vol] 32.9 g/dL 32-36 [facility] No Panel InformationOrdered By: Reese Shankar on 02-11-2022 Estimated Creatinine Clearance Calc 19.31 ml/min [facility] Estimated GFR (MDRD) Amer 36 mL/min >60 [facility] Comment on above: GFR Calc Estimated GFR (MDRD) Non-Af Amer 30 mL/min >60 [facility] Comment on above: Non- GFR Calc Troponin I High Sensitivity 13 pg/mL 3.0-54.0 [facility] Comment on above: Please Note: New Evon t Units and Gender Specific Reference Ranges. For more information see Policy Stat Procedure Cornelius High Sensitivity Troponin (TNIH) and attachments. Platelets bldOrdered By: Dontae Shankar on 02-11-2022 Platelets (Bld) [#/Vol] 286 10*3/uL 150-450 [facility] Serum or plasma calcium viktoria urement (mass/volume)Ordered By: Reese Shankar on 02-11-2022 Calcium [Mass/Vol] 9.1 mg/dL 8.5-10.1 [facility] Serum or plasma creatinine m easurement (mass/volume)Ordered By: Reese Shankar on 02-11-2022 Creatinine [Mass/Vol] 1.73 mg/dL 0.55-1.02 [facility] Comment on above: The validity of the calculated GFR & GFRAA in patients over 70 years has not been determined. Clinical correlation is essential. Serum or plasma urea nitroge n measurement (mass/volume)Ordered By: Reese Shankar on 02-11-2022 Urea nitrogen [Mass/Vol] 32 mg/dL 7-18 [facility] Thin prep Papanicolaou smear with manual screeningOrdered By: Reese Shankar on 02-11-2022 Thin prep Papanicolaou smear with manual screening 10 5-15 [facility] SUZINon 10-14-2019 CNPN Telephone (AGCARDPOB ) EZRA GONZALEZ ([id number]) 1935 F Date Time Provider Department 10/14/19 [...] artery stent placement- 2006 [Z95*11/14/2015 [place] coronary artery of na*11/14/2015 Asymptomatic cholelithiasis [K80.20] [...] by ELVER ACOSTA on 10/14/19 [facility] CNPTOUTREACHon 10-12-2019 [facility] Patient Outreach ([facility]) EZRA GONZALEZ ([id number]) 1935 F Date Time Provider Department 10/12/19 SWATHI CRUZ) [facility] During your visit today, we recorded the following information about you: Swathi Cruz LPN, LPN 10/12/2019 10:48 AM Signed ED Follow Up: Patient discharged from [facility] ED on 10/11/2019 for Fall, rib [...] Visit: Transition Of Care [4074] Cmt: ED [facility] 10/11/2019 (Pt. has new pcp) Reason [...] artery stent placement- 2006 [Z95*11/14/2015 [place]ros[place] coronary artery of na*11/14/2015 Asymptomatic cholelithiasis [K80.20] [...] SWATHI CRUZ LPN on 10/12/19 [facility] OBSOLETEon 10-12-2019 OBSOLETE Refill ([facility]) EZRA GONZALEZ ([id number]) 1935 F Date Time Provider Department 10/12/19 JO PERE[facility] During your visit today, we recorded the following information about you: Anne Marie Hobbs Reg 10/12/2019 7:50 AM Signed Pharmacy faxed requesting the following refill. Pending Prescriptions Disp Refills FUROSEMIDE 20 MG TABLET 90 tablet 0 Sig: TAKE ONE TABLET BY MOUTH EVERY DAY SHAHEEN: Yes Last refill: 01/21/2019 Patient last appointment: 09/22/2019 Patient next appointment: Visit date not found Patient Phone numbers: [phone] (home) Request is for script(s) to be [...] artery stent placement- 2006 [Z95*11/14/2015 [place] coronary artery of na*11/14/2015 Asymptomatic cholelithiasis [K80.20] [...] LYNN BENEDICT LPN on 11/11/19 [facility] PROGRESSon 10-12-2019 PROGRESS HNO ID: [id number] Author: Swathi Cruz LPN Service: ? Author Type: LICENSED NURSE Type: Progress Notes Filed: 10/12/2019 10:48 AM Note Text: ED Follow Up: Patient discharged from [facility] ED on 10/11/2019 for Fall, rib fracture Outreach # 1, Contact Made. Patient was called at this time. Patient verified by name and . Patient stated she has a new PCP Dr. Sada Doran who she will follow up with. Swathi Cruz LPN 10/12/2019 10:45 AM [facility] CNPMari 10-06-2019 JAROD Telephone (SARITHAMAC) EZRA GONZAELZ ([id number]) 1935 F Date Time Provider Department 10/06/19 [...] Date: 12/30/16 +++[facility] [place] [phone]+++ PT INR Date Value Ref Range Status [...] (HCC) [I48.91] Order(s):PROTHROMBIN TIME/PT [SQPT] Order #: [id number] Prescriptions as of 10/06/2019 Sig: METOPROLOL SUCCINATE [...] artery stent placement- 2006 [Z95*11/14/2015 [place]ros[place] coronary artery of na*11/14/2015 Asymptomatic cholelithiasis [K80.20] [...] by BHAKTI (PHARMACIST)ESTEFANIA on 10/06/19 [facility]-2019 [facility] Telephone ([facility]) EZRA GONZALEZ ([id number]) 1935 F Date Time Provider Department 09/22/19 JO PEREZ [facility] During your visit today, we recorded the following information about you: Maryanne Gomez MA 09/22/2019 10:38 AM Signed Patient is aware that you are going to be leaving the practice. She states she recently moved down to [place] and wants to find a physician closer to her Is there anyone that you recommend Maryanne Gomez MA 09/22/2019 10:37 AM Jo Perez MD 09/22/2019 12:[address] [facility] at [facility] Alicia Park LPN 09/22/2019 1:21 PM Signed [...] Fully Assessed Reason for Visit: Patient Question [8158] Cmt: [facility] in [facility] Prescriptions as of 09/22/2019 Sig: METOPROLOL SUCCINATE [...] artery stent placement- 2006 [Z95*11/14/2015 [place] coronary artery of na*11/14/2015 Asymptomatic cholelithiasis [K80.20] [...] by ALICIA PARK on 09/22/19 [facility]OUTREACH[facility] EZRA GONZALEZ ([id number]) 1935 F Date Time Provider Department 09/22/19 MARYANNE GOMEZ) [facility] During your visit today, we recorded the following information about you: Maryanne Gomez MA 09/22/2019 10:34 AM Signed HIGH RISK CHRONIC DISEASE MONITORING - [facility] Provider Action/FYI: Patient doing well Contact made with patient: Yes Hi my name is Maryanne Gomez MA and I am calling from the [facility] on behalf of your [...] to speak with a social work steam meter reader to help give you support for any [...] artery stent placement- 2006 [Z95*11/14/2015 Atheros[place] coronary artery of na*11/14/2015 Asymptomatic cholelithiasis [K80.20] [...] MARYANNE GOMEZ on 09/22/19 Normal [facility] PROGRESSon 09-22-2019 PROGRESS HNO ID: [id number] Author: Maryanne Gomez Service: ? Author Type: Shoe Maker Type: Progress Notes Filed: 09/22/2019 10:34 AM Note Text: HIGH RISK CHRONIC DISEASE MONITORING - [facility] Provider Action/FYI: Patient doing well Contact made with patient: Yes Hi my name is Maryanne Gomez MA and I am calling from the [facility] on behalf of your PCP. I'm [...] to speak with a social work steam meter reader to help give you support for any [...] Maryanne Gomez MA 09/22/2019 10:33 AM Normal [facility] Guido 09-21-2019 [facility] Patient Outreach ([facility]) EZRA GONZALEZ ([id number]) 1935 F Date Time Provider Department 09/21/19 [facility] PERE[facility] During your visit today, we recorded the following information about you: Alicia Park LPN 09/21/2019 10:43 AM Signed HIGH RISK CHRONIC DISEASE MONITORING - [facility] Provider Action/FYI: Contact made with patient: No - Left 1st message - Hi my name is Alicia Park LPN and I am calling from the [facility] on behalf of your [...] artery stent placement- 2006 [Z95*11/14/2015 [place]ros[place] coronary artery of na*11/14/2015 Asymptomatic cholelithiasis [K80.20] [...] by ALICIA PARK on 09/21/19 [facility] PROGRESSon 09-21-2019 PROGRESS HNO ID: [id number] Author: Alicia Park Service: ? Author Type: LICENSED NURSE Type: Progress Notes Filed: 09/21/2019 10:43 AM Note Text: HIGH RISK CHRONIC DISEASE MONITORING - [facility] Provider Action/FYI: Contact made with patient: No - Left 1st message - Hi my name is Alicia Park LPN and I am calling from the [facility] on behalf of your [...] Track Pt Outreach. End outreach.) Outreach ended [facility] CNPMari 09-02-2019 CNPN Telephone ([facility]) EZRA GONZALEZ ([id number]) 1935 F Date Time Provider Department 09/02/19 [...] Date: 12/30/16 +++Patient gets lab draw at [facility] in [place] [phone]+++ PT INR Date Value Ref Range Status [...] Patient will have next INR drawn at [facility] in [place] next month. Order placed. Jp CollinsD Allergies [...] (HCC) [I48.91] Order(s):PROTHROMBIN TIME/PT [SQPT] Order #: [id number] PROTHROMBIN TIME/PT [SQPT] Order #: [id number] STANDING Prescriptions as of 09/02/2019 Sig: METOPROLOL [...] artery stent placement- 2006 [Z95*11/14/2015 [place] coronary artery of na*11/14/2015 Asymptomatic cholelithiasis [K80.20] [...] by BHAKTI (PHARMACIST)ESTEFANIA on 09/03/19 [facility] Guido 08-12-2019 CNPTOUTREACH Patient Outreach ([facility]) EZRA GONZALEZ ([id number]) 1935 F Date Time Provider Department 08/12/19 MARYANNE GOMEZ) [facility] During your visit today, we recorded the following information about you: Maryanne Gomez MA 08/12/2019 9:39 AM Signed HIGH RISK CHRONIC DISEASE MONITORING - [facility] Provider Action/FYI: Left 2nd message, will add patient to schedule for a month Contact made with patient: No, Left 2nd message - Hi my name is Maryanne Gomez MA and [facility], Jo Perez [...] Pt Outreach. End outreach.) Outreach ended Maryanne Gomze MA 08/12/2019 9:38 AM Allergies As of [...] artery stent placement- 2006 [Z95*11/14/2015 [place]ros[place] coronary artery of na*11/14/2015 Asymptomatic cholelithiasis [K80.20] [...] by MARYANNE GOMEZ on 08/12/19 [facility] PROGRESSon 08-12-2019 PROGRESS HNO ID: [id number] Author: Maryanne Gomez Service: ? Author Type: Shoe Maker Type: Progress Notes Filed: 08/12/2019 9:39 AM Note Text: HIGH RISK CHRONIC DISEASE MONITORING - [facility] Provider Action/FYI: Left 2nd message, will add patient to schedule for a month Contact made with patient: No, Left 2nd message - Hi my name is Maryanne Gomez MA and I am calling from the [facility] on behalf of your [...] Gomez MA 08/12/2019 9:38 AM [facility] CNPTOUTREACHochastity 08-11-2019 CNPTOUTREA Patient Outreach ([facility]) EZRA GONZALEZ ([id number]) 1935 F Date Time Provider Department 08/11/19 MARYANNE GOMEZ) [facility] During your visit today, we recorded the following information about you: Maryanne Gomez MA 08/11/2019 10:02 AM Signed HIGH RISK CHRONIC DISEASE MONITORING - [facility] Provider Action/FYI: Left message, will add to schedule for tomorrow Contact made with patient: No - Left 1st message - Hi my name is Maryanne REGI Gomez and I am calling from the [facility] on behalf of your PCP, Jo [...] artery stent placement- 2006 [Z95*11/14/2015 Atherosclerosis of [place] coronary artery of na*11/14/2015 Asymptomatic cholelithiasis [K80.20] [...] by MARYANNE GOMEZ on 08/11/19 [facility] PROGRESSon 08-11-2019 PROGRESS HNO ID: [id number] Author: Maryanne Gomez Service: ? Author Type: Shoe Maker Type: Progress Notes Filed: 08/11/2019 10:02 AM Note Text: HIGH RISK CHRONIC DISEASE MONITORING - [facility] Provider Action/FYI: Left message, will add to schedule for tomorrow Contact made with patient: No - Left 1st message - Hi my name is Maryannehandy Gomez MA and I am calling from the [facility] on behalf of your [...] Maryanne Gomez MA 08/11/2019 10:01 AM Normal [facility] OBSOLETEon 08-05-2019 OBSOLETE Refill (AGCARDPOB) EZRA GONZALEZ ([id number]) 1935 F Date Time Provider Department 08/05/19 [...] artery stent placement- 2006 [Z95*11/14/2015 Atherosclerosis [place] coronary artery of na*11/14/2015 Asymptomatic cholelithiasis [K80.20] [...] by LYNETTE OROURKE on 08/05/19 [facility] CNPTOUTREACHon 08-04-2019 [facility] Patient Outreach ([facility]) EZRA GONZALEZ ([id number]) 1935 F Date Time Provider Department 08/04/19 MARYANNE GOMEZ) [facility] During your visit today, we recorded the following information about you: Maryanne Gomez MA 08/04/2019 11:03 AM Signed HIGH RISK CHRONIC DISEASE MONITORING - [facility] Provider Action/FYI: Patient has no questions or concerns at this time Contact made with patient: Yes Hi my name is Maryanne Gomez MA and I am calling from the [facility] on behalf of your [...] to speak with a social work steam meter reader to help give you support for any [...] artery stent placement- 2006 [Z95*11/14/2015 Atherosclerosis [place] coronary artery of na*11/14/2015 Asymptomatic cholelithiasis [K80.20] [...] Encounter Status:Closed by MARYANNE GOMEZ on 08/04/19 [facility] PROGRESSon 08-04-2019 PROGRESS HNO ID: [id number] Author: Maryanne Gomez Service: ? Author Type: Shoe Maker Type: Progress Notes Filed: 08/04/2019 11:03 AM Note Text: HIGH RISK CHRONIC DISEASE MONITORING - [facility] Provider Action/FYI: Patient has no questions or concerns at this time Contact made with patient: Yes Hi my name is Maryanne Gomez MA and I am calling from the [facility] on behalf of your [...] to speak with a social work steam meter reader to help give you support for any [...] MA 08/04/2019 11:03 AM Normal [facility] OBSOLETEon 08-03-2019 OBSOLETE Refill (AGCARDPOB) EZRA GONZALEZ ([id number]) 1935 F Date Time Provider Department 08/03/19 [...] artery stent placement- 2006 [Z95*11/14/2015 Atherosclerosis [place] coronary artery of na*11/14/2015 Asymptomatic cholelithiasis [K80.20] [...] KATYA WELLS CNP on 08/03/19 [facility] CNPTOUTREACHochastity 07-28-2019 CNPTOUTREA Patient Outreach ([facility]) EZRA GONZALEZ ([id number]) 1935 F Date Time Provider Department 07/28/19 MARYANNE GOMEZ) [facility] During your visit today, we recorded the following information about you: Maryanne Gomez MA 07/28/2019 3:18 PM Signed HIGH RISK CHRONIC DISEASE MONITORING - [facility] Provider Action/FYI: Patient wants to know [...] MA and I am calling from the [facility] on behalf of your [...] to speak with a social work steam meter reader to help give you support for any [...] Please report her afib episode to her public safety dispatcher (you can just route this chart to [...] use of insulin (HCC) [E11.9] Order(s):HGB A1C [ZRXTE0T] Order #: [id number] FUTURE LIPID PANEL BASIC [SQLIPB] Order #: [id number] FUTURE COMP METABOLIC PANEL [SQCMP] Order #: [id number] FUTURE ALBUMIN QUANT 24H UR [SQUALBQ] Order #: [id number] FUTURE Prescriptions as of 07/28/2019 Sig: SIMVASTATIN [...] artery stent placement- 2006 [Z95*11/14/2015 Atherosclerosis [place] coronary artery of na*11/14/2015 Asymptomatic cholelithiasis [K80.20] [...] by JO PEREZ on 07/28/19 [facility] OBSOLETEon 07-28-2019 OBSOLETE Refill (AGCARDHWG) EZRA GONZALEZ ([id number]) 1935 F Date Time Provider Department 07/28/19 [...] artery stent placement- 2006 [Z95*11/14/2015 Atherosclerosis [place] coronary artery of na*11/14/2015 Asymptomatic cholelithiasis [K80.20] [...] ARCELIA LOCKETT CNP on 07/28/19 [facility] PROGRESSon 07-28-2019 PROGRESS HNO ID: [id number] Author: Maryanne Gomez Service: ? Author Type: Shoe Maker Type: Progress Notes Filed: 07/28/2019 3:18 PM [...] Gomez MA 07/28/2019 3:05 PM [facility] PROGRESS HNO ID: [id number] Author: Jo Perez Service: ? Author Type: Physician Type: Progress Notes Filed: 07/28/2019 3:18 PM Note Text: Please report her afib episode to her public safety dispatcher (you can just route this chart to [...] get labs done prior to her visit [facility] PROGRESS HNO ID: [id number] Author: Maryanne Gomez Service: ? Author Type: Shoe Maker Type: Progress Notes Filed: 07/28/2019 3:18 PM Note Text: HIGH RISK CHRONIC DISEASE MONITORING - [facility] Provider Action/FYI: Patient wants to know [...] MA and I am calling from the [facility] on behalf of your [...] to speak with a social work steam meter reader to help give you support for any [...] MA 07/28/2019 2:21 PM Normal [facility] OBSOLETEon 07-14-2019 OBSOLETE Refill (AGC) EZRA GONZALEZ ([id number]) 1935 F Date Time Provider Department 07/14/19 JO PEREZ [facility] During your visit today, we recorded the [...] Visit date not found Patient Phone numbers: [phone] (home) Request is for script(s) to be [...] artery stent placement- 2006 [Z95*11/14/2015 Atherosclerosis [place] coronary artery of na*11/14/2015 Asymptomatic cholelithiasis [K80.20] [...] by JO PEREZ on 07/14/19 [facility] OBSOLETE Refill (AGCARDPOB) LISAEZRA J ([id number]) 1935 F Date Time Provider Department 07/14/19 [...] artery stent placement- 2006 [Z95*11/14/2015 Atherosclerosis [place] coronary artery of na*11/14/2015 Asymptomatic cholelithiasis [K80.20] [...] Status:Closed by RICKEY CHAVARRIA MD on 07/14/19 [facility] ([id number]) 1935 F Date Time Provider Department 07/12/19 [facility] During your visit today, we [...] Date: 12/30/16 +++Patient gets lab draw at [facility] in [place] [phone]+++ PT INR Date Value Ref Range Status [...] (HCC) [I48.91] Order(s):PROTHROMBIN TIME/PT [SQPT] Order #: [id number] Prescriptions as of 07/12/2019 Sig: LISINOPRIL 5 [...] artery stent placement- 2006 [Z95*11/14/2015 Atherosclerosis [place] coronary artery of na*11/14/2015 Asymptomatic cholelithiasis [K80.20] [...] by BHAKTI (PHARMACIST)ESTEFANIA on 07/12/19 [facility] OBSOLETEon 07-05-2019 OBSOLETE Refill (AGC) LISAEZRA ([id number]) 1935 F Date Time Provider Department 07/05/19 JO PEREZ [facility] During your visit today, we recorded the [...] Patient next appointment: 07/28/2019 Patient Phone numbers: [phone] (home) Request is for script(s) to be [...] longer on backorder per Dr. Perez. Bernarda [place] 07/13/2019 11:23 AM Allergies As of Date: [...] artery stent placement- 2006 [Z95*11/14/2015 Atherosclerosis [place] coronary artery of na*11/14/2015 Asymptomatic cholelithiasis [K80.20] [...] PATITO WILSON CNP on 07/05/19 [facility] OBSOLETEon 07-01-2019 OBSOLETE Refill (AGC) LISAEZRA ([id number]) 1935 F Date Time Provider Department 07/01/19 [...] Patient next appointment: 07/28/2019 Patient Phone numbers: [phone] (home) Request is for script(s) to be [...] artery stent placement- 2006 [Z95*11/14/2015 Atherosclerosis [place] coronary artery of na*11/14/2015 Asymptomatic cholelithiasis [K80.20] [...] by JO PEREZ on 07/01/19 [facility] Bao 06-10-2019 CNPN Telephone (INTBMG) EZRA GOZNALEZ ([id number]) 1935 F Date Time Provider Department 06/10/19 [facility] your visit today, we recorded the [...] artery stent placement- 2006 [Z95*11/14/2015 Atherosclerosis [place] coronary artery of na*11/14/2015 Asymptomatic cholelithiasis [K80.20] [...] SWATHI CRUZ LPN on 06/10/19 [facility] 06-07-2019 SUZIN Telephone (SARITHAMAC) EZRA GONZALEZ ([id number]) 1935 F Date Time Provider Department 06/07/19 [...] Date: 12/30/16 +++Patient gets lab draw at [facility] in [place] [phone]+++ PT INR Date Value Ref Range Status [...] (HCC) [I48.91] Order(s):PROTHROMBIN TIME/PT [SQPT] Order #: [id number] Prescriptions as of 06/07/2019 Sig: COQ-10 ORAL [...] artery stent placement- 2006 [Z95*11/14/2015 Atherosclerosis [place] coronary artery of na*11/14/2015 Asymptomatic cholelithiasis [K80.20] [...] by BHAKTI (PHARMACIST)ESTEFANIA on 06/07/19 [facility] 06-04-2019 SUZIN Telephone ([place]) EZRA GONZALEZ ([id number]) 1935 F Date Time Provider Department 06/04/19 [...] artery stent placement- 2006 [Z95*11/14/2015 Atherosclerosis [place] coronary artery of na*11/14/2015 Asymptomatic cholelithiasis [K80.20] [...] Encounter Status:Closed by BHAKTI (PHARMACIST)ESTEFANIA [facility] EZRA GONZALEZ ([id number]) 1935 F Date Time Provider Department 05/13/19 4:00 PM CRUZ SANCHEZ AGHWW1 During your visit today, we recorded the following information about you: Respiration Weight Height 18/minute 82.6 kg 1.613 m Cruz Sanchez MD 05/13/2019 5:00 PM Signed HISTORY OF PRESENT ILLNESS: Ezra Gonzalez is an 83-year-old lavvf-nunt-fvjvnjmc female who returns for follow-up right shoulder [...] associated with diabetes mellitus (HCC) - [place] (myocardial infarction) 2006 - On anticoagulant therapy - 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 - Osteoarthritis - Peripheral venous [...] R Shoulder CARDIOVASCULAR: Peripheral venous insufficiency, h/o MN, HTN, Coronary Arteriosclerosis, A-Fib, Cardiac Ablation MSK: [...] [Z98.890] Order(s):Large Joint Arthro/Inj: R subacromial bursa [CNT092] Order #: [id number] betamethasone acetate-betamethasone sodium phosphate 12 mg injection [...] artery stent placement- 2006 [Z95*11/14/2015 Atherosclerosis [place] coronary artery of na*11/14/2015 Asymptomatic cholelithiasis [K80.20] [...] by CRUZ SANCHEZ MD on 05/13/19 Normal [facility] PROGRESSon 05-13-2019 PROGRESS HNO ID: [id number] Author: Cruz Sanchez Service: ? 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 Cruz Sanchez MD [facility] CNOVon 04-27-2019 CN Office Visit ([facility]) LISAEZRA J ([id number]) 1935 F Date Time Provider Department 04/27/19 3:40 PM JO PEREZ [facility] During your visit today, we recorded the [...] coronary artery stent placement- 2006 Atherosclerosis of [place] Coronary Artery of [place] Heart Without Angina Pectoris Asymptomatic Cholelithiasis History [...] Gonzalez Podiatry 05/19/2015 End 05/19/15 Nirmal Kemp INDUSTRIAL WASTE INSPECTOR 07/07/2017 End 07/07/17 ; Mohan Álvarez Ophthalmology 07/07/2017 End 07/07/17 Rickey Chavarria Cardiology 09/30/2018 End 09/30/18 ; End of Live Planning discussed including patients advanced directive wishes: Yes I am willing to follow advanced directives. Mini-Cog Patient asked to remember the following three words: Banana, [place] and Chair Visuospatial/Executiv e Functioning: Clock drawin/2 [...] No history of dysuria, frequency or incontinence INSULATION BLOWER: Negative for abnormal vaginal bleeding, abnormal vaginal [...] with supplements or by diet (goal of 5362-5654 mg/day - Discussed need and benefit for [...] arise. - Discussed diabetic education issues of intermodal owner operator truck driver diabetic complications, hypoglycemic symptoms, hyperglycemic symptoms, diet, [...] prepared fairly simply. If you were a aupw-gbi-pfkvwgze eater, focus on the meat more than [...] your kitchen up for success. Always have hew-wipr-tmufkwuv foods on hand ready to eat. Remove [...] unspecified type [R19.7] Order(s):ADMIN OF INFLUENZA VACCINE [V9963FMA] Order #: [id number]: 1 INFLUENZA SEASONAL HIGH DOSE AGE 65+ [[id number]] Order #: [id number] metFORMIN (GLUCOPHAGE) 500 mg tabletTake 1 tablet by mouth daily with breakfast.Disp: Rfl: HGB A1C [GOQTN8R] Order #: [id number] FUTURE COMP METABOLIC PANEL [SQCMP] Order #: [id number] FUTURE Prescriptions as of 04/27/2019 Sig: COQ-10 [...] artery stent placement- 2006 [Z95*11/14/2015 Atherosclerosis [place] coronary artery of na*11/14/2015 Asymptomatic cholelithiasis [K80.20] [...] prepared fairly simply. If you were a ovpg-mnj-espvixvm eater, focus on the meat more than [...] your kitchen up for success. Always have atn-gcve-adgfwfjm foods on hand ready to eat. Remove [...] Encounter Status:Closed by JO PEREZ on 04/27/19 [facility] PROGRESSon 04-27-2019 PROGRESS HNO ID: [id number] Author: Jo Perez Service: ? Author Type: [...] coronary artery stent placement- 2006 Atherosclerosis of [place] Coronary Artery of [place] Heart Without Angina Pectoris Asymptomatic Cholelithiasis History [...] Gonzalez Podiatry 05/19/2015 End 05/19/15 Nirmal Kemp INDUSTRIAL WASTE INSPECTOR 07/07/2017 End 07/07/17 ; Mohan Álvarez Ophthalmology 07/07/2017 End 07/07/17 Rickey Chavarria Cardiology 09/30/2018 End 09/30/18 ; End of Live Planning discussed including patients advanced directive wishes: Yes I am willing to follow advanced directives. Mini-Cog Patient asked to remember the following three words: Banana, [place] and Chair Visuospatial/Executiv e Functioning: Clock drawin/2 [...] No history of dysuria, frequency or incontinence INSULATION BLOWER: Negative for abnormal vaginal bleeding, abnormal vaginal [...] with supplements or by diet (goal of 2666-8930 mg/day - Discussed need and benefit for [...] arise. - Discussed diabetic education issues of intermodal owner operator truck driver diabetic complications, hypoglycemic symptoms, hyperglycemic symptoms, diet, [...] screening - Lipid panel [facility] Office Visit (AGHWW1 ) EZRA GONZALEZ ([id number]) 1935 F Date Time Provider Department 03/18/19 4:00 PM CRUZ SANCHEZ HWW1 During your visit today, we recorded the following information about you: Respiration Weight Height 17/minute 80.7 kg 1.651 m Cruz Sanchez MD 03/18/2019 7:00 PM Signed HISTORY OF PRESENT ILLNESS: Ezra Gonzalez is an 83-year-old bpxcr-zzgl-shszzczl female who returns for follow-up right shoulder [...] and strength with continued physical therapy in [place]. She is currently using the yellow to [...] associated with diabetes mellitus (HCC) - Old [place] (myocardial infarction) 2006 - On anticoagulant therapy - On residential drug therapy - Osteoarthritis - Peripheral venous [...] Diabetic Neuropathy ENDOCRINE: Dm II Cont[facility]: Vital Signs Resp 17 [...] artery stent placement- 2006 [Z95*11/14/2015 Atherosclerosis [place] coronary artery of na*11/14/2015 Asymptomatic cholelithiasis [K80.20] [...] by CRUZ SANCHEZ MD on 12/19/19 Normal [facility] PROGRESSon 12-19-2019 PROGRESS HNO ID: [id number] Author: Cruz Sanchez Service: ? Author Type: Physician Type: Progress Notes Filed: 03/18/2019 7:00 PM Note Text: HISTORY OF PRESENT ILLNESS: Ezra Gonzalez is an 83-year-old xhkpp-uyuj-qkrhbgiz female who returns for follow-up right shoulder [...] and strength with continued physical therapy in [place]. She is currently using the yellow to [...] associated with diabetes mellitus (HCC) - Old [place] (myocardial infarction) 2006 - On anticoagulant therapy - On residential drug therapy - Osteoarthritis - Peripheral venous [...] as needed. Cruz Sanchez MD [facility] OBSOLETEon 03-17-2019 OBSOLETE Refill ([facility]) EZRA GONZALEZ ([id number]) 1935 F Date Time Provider Department 03/17/19 VIPUL BUCHANAN ([facility]) [facility] During your visit today, we recorded the following information about you: Anne Marie Britogers Reg 03/18/2019 7:40 AM Signed Pharmacy faxed requesting the following refill. Pending Prescriptions Disp Refills LISINOPRIL 5 MG TABLET 90 tablet 0 Sig: TAKE ONE TABLET BY MOUTH once DAILY SHAHEEN: Yes Last refill: 10/09/2018 Patient last appointment: 09/30/2018 Patient next appointment: Visit date not found Patient Phone numbers: [phone] (home) Request is for script(s) to be [...] artery stent placement- 2006 [Z95*11/14/2015 Atherosclerosis [place] coronary artery of na*11/14/2015 Asymptomatic cholelithiasis [K80.20] [...] by JO PEREZ on 03/18/19 [facility] OBSOLETE Refill (AGC) EZRA GONZALEZ ([id number]) 1935 F Date Time Provider Department 03/17/19 [...] Patient next appointment: 04/02/2019 Patient Phone numbers: [phone] (home) Request is for script(s) to be [...] artery stent placement- 2006 [Z95*11/14/2015 Atherosclerosis of [place] coronary artery of na*11/14/2015 Asymptomatic cholelithiasis [K80.20] [...] by JO PEREZ on 03/18/19 [facility] Inocencia 02-04-2019 CNOV Office Visit (AGHWW1 ) EZRA GONZALEZ ([id number]) 1935 F Date Time Provider Department 02/04/19 1:30 PM CRUZ SANCHEZ AGHWW1 During your visit today, we recorded the following information about you: Respiration Weight Height 17/minute 80.7 kg 1.676 m Cruz Sanchez MD 02/04/2019 4:40 PM Signed HISTORY OF PRESENT ILLNESS: Ezra Gonzalez was provided orthopedic evaluation regarding right shoulder complaints. 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 - Osteoarthritis - Peripheral venous [...] conditions CARDIOVASCULAR: A-Fib, Coronary Arteriosclerosis, HTN, [place], Peripheral Venous Inufficiency, MSK: Degenerative Joint Disease, [...] GENERAL 3V OR MORE AP/TRUE AP/OTHER RT [[id number]] Order #: [id number] CONSULT TO PHYSICAL THERAPY (AG) [[id number]] Order #: [id number]: 1 DRAIN/INJECT LARGE JOINT/BURSA [[id number]] Order #: [id number] [] betamethasone acetate-betamethasone sodium phosphate 12 mg [...] stent placement- 2006 [Z95*INVALID FOR* Atherosclerosis of [place] coronary artery of na*INVALID FOR* Asymptomatic cholelithiasis [...] CRUZ SANCHEZ MD on 02/04/19 [facility] PROGRESSon 02-04-2019 PROGRESS HNO ID: [id number] Author: Cruz Sanchez Service: ? Author Type: Physician Type: Progress Notes Filed: 02/04/2019 4:40 PM Note Text: HISTORY OF PRESENT ILLNESS: Ezra Gonzalez was provided orthopedic evaluation regarding right shoulder complaints. 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 Cruz Sanchez MD [facility] OBSOLETEon 01-21-2019 OBSOLETE Refill (AGCARDPOB) EZRA GONZALEZ ([id number]) 1935 F Date Time Provider Department 01/21/19 [...] Myalgias Date Reviewed: 11/27/2018 Reviewed by: Vika ([facility]) Brian - Fully Assessed Reason for [...] stent placement- 2006 [Z95*INVALID FOR* Atherosclerosis of [place] coronary artery of na*INVALID FOR* Asymptomatic cholelithiasis [...] RICKEY CHAVARRIA MD on 01/21/19 [facility] OBSOLETE Refill ([facility]) EZRA GONZALEZ ([id number]) 1935 F Date Time Provider Department 01/21/19 JO PEREZ [facility] During your visit today, we recorded the following information about you: Anne Marie Hobbs Reg 01/21/2019 12:05 PM Signed Pharmacy faxed requesting the following refill. Pending Prescriptions Disp Refills FUROSEMIDE 20 MG TABLET 90 tablet 2 Sig: TAKE ONE TABLET BY MOUTH ONCE DAILY SHAHEEN: Yes Last refill: 01/05/2018 Patient last appointment: 09/30/2018 Patient next appointment: 04/02/2019 Patient Phone numbers: [phone] (home) Request is for script(s) to be [...] Myalgias Date Reviewed: 11/27/2018 Reviewed by: Vika ([facility]) Brian - Fully Assessed Reason for [...] stent placement- 2006 [Z95*INVALID FOR* Atherosclerosis of [place] coronary artery of na*INVALID FOR* Asymptomatic cholelithiasis [...] by JO PEREZ on 01/21/19 [facility] CNTHERAPYon 12-14-2018 CNTHERAPY OT/PT/Speech Visit (WIST) EZRA GONZALEZ ([id number]) 1935 F Date Time Provider Department 12/14/18 11:00 AM ANOOP COLLAZO ([facility]) [facility] Date Time Provider Department Center 12/14/2018 11:00 AM [id number], SHARON (*[facility] Reason for Visit: Difficulty In [...] Myalgias Date Reviewed: 11/27/2018 Reviewed by: Vika Castro[facility] Hospital[facility]inesse Torres - Fully Assessed Prescriptions as of [...] Collazo, Jazmyn, AUD 12/14/2018 4:44 PM Signed [facility] OUTPATIENT AUDIOLOGY SERVICES AUDIOLOGIC EVALUATION REPORT 12/14/2018 Page 1 of 3 Patient: Ezra Gonzalez : 1935 Referred by: Jo Perez (PCP: Yazmin) Referred for: Evaluation of suspected change in hearing, tinnitus, or balance. Referral documented: In an order in [facility]: OTHER ORDERS: : CONSULT TO AUDIOLOGY FOR DIAGNOSTIC TESTING [9003] (Order [id number]) Patient's major complaints: Progressively increasing difficulty in [...] --Pure tone audiometry using insert earphones demonstrates [id number]-rb-lnagwamwii severe level sensorineural type hearing loss, worse [...] up w/ referring physician. Report routed via Nanole[employer] inbox to Dr. Perez on 12/14/2018 -Re-evaluation [...] Audiogram can be also be viewed in [employer] Smart[employer]:Audiology: Audiometry. OAE and tympanometry results can be viewed in [employer] Scanned Documents. RIGHT EAR Hearing Sensitivity: 250-500HZ: WNL; 750-2000Hz:mild; 3000-8000Hz: moderate-severe SNHL Word Recognition Score (order by difficulty 10 word list): Excellent (90%) at slt amplified loudness (fair at conversational loudness) Tympanometry: Type A : Normal ME function. Otoacoustic Emissions results: 750-3000Hz: WNL; 7329-6705: reduced; 8000Hz: absent. LEFT EAR Hearing Sensitivity: 250-500HZ: WNL; 750-3000Hz: moderate; 6000-8000Hz: severe SNHL Word Recognition Score (order by difficulty 10 word list): Excellent (90%) at amplified loudness (poor at conversational loudness) Tympanometry: Type A : Normal ME function. Otoacoustic Emissions results: 750-1000Hz: absent; 9518-2323: reduced; 6000-8000Hz: absent. William Hinson. Audio Visual Arts Director 12/14/2018 3:30 PM Ezra Gonzalez : 1935 [...] visit: Audiometry Letter Text Normal [facility] OBSOLETEon 12-14-2018 OBSOLETE Refill ([facility]) EZRA GONZALEZ ([id number]) 1935 F Date Time Provider Department 12/14/18 JO PEREZ [facility] During your visit today, we recorded the following information about you: Robert Diaz CMA 12/16/2018 1:00 PM Signed Patient called requesting the following refill. Pending Prescriptions Disp Refills RANITIDINE 150 MG TABLET 90 tablet 0 Sig: TAKE ONE TABLET BY MOUTH EVERY DAY SHAHEEN: Yes Last refill: 09/16/2018 Patient last appointment: 10/20/2018 Patient next appointment: 04/02/2019 Patient Phone numbers: [phone] (home) Request is for script(s) to be [...] Myalgias Date Reviewed: 11/27/2018 [facility] Brian - Fully Assessed Reason for [...] stent placement- 2006 [Z95*INVALID FOR* Atherosclerosis of [place] coronary artery of na*INVALID FOR* Asymptomatic cholelithiasis [...] Encounter Status:Closed by JO PEREZ on 12/16/18 [facility] PROGRESSon 12-14-2018 PROGRESS HNO ID: [id number] Author: Anoop Crisostomo) JAZMYN Collazo Service: ? Author Type: Audio Visual Arts Director Type: Progress Notes Filed: 12/14/2018 4:44 PM Note Text: [facility] OUTPATIENT AUDIOLOGY SERVICES AUDIOLOGIC EVALUATION REPORT 12/14/2018 Page 1 of 3 Patient: Ezra Snell Lisa : 1935 Referred by: Jo Perez (PCP: Yazmin) Referred for: Evaluation of suspected change in hearing, tinnitus, or balance. Referral documented: In an order in Epic: OTHER ORDERS: : CONSULT TO AUDIOLOGY FOR DIAGNOSTIC TESTING [7933] (Order [id number]) Patient's major complaints: Progressively increasing difficulty in [...] --Pure tone audiometry using insert earphones demonstrates lvtk-ur-zsakbywsue severe level sensorineural type hearing loss, worse [...] up w/ referring physician. Report routed via Nanole[employer] inbox to Dr. Perez on 12/14/2018 -Re-evaluation [...] Audiogram can be also be viewed in [employer]:Audiology: Audiometry. OAE and tympanometry results can be viewed in [employer] Scanned Documents. RIGHT EAR Hearing Sensitivity: 250-500HZ: WNL; 750-2000Hz:mild; 3000-8000Hz: moderate-severe SNHL Word Recognition Score (order by difficulty 10 word list): Excellent (90%) at slt amplified loudness (fair at conversational loudness) Tympanometry: Type A : Normal ME function. Otoacoustic Emissions results: 750-3000Hz: WNL; 3027-7094: reduced; 8000Hz: absent. LEFT EAR Hearing Sensitivity: 250-500HZ: WNL; 750-3000Hz: moderate; 6000-8000Hz: severe SNHL Word Recognition Score (order by difficulty 10 word list): Excellent (90%) at amplified loudness (poor at conversational loudness) Tympanometry: Type A : Normal ME function. Otoacoustic Emissions results: 750-1000Hz: absent; 8048-6975: reduced; 6000-8000Hz: absent. William Hinson. Audio Visual Arts Director 12/14/2018 3:30 PM Ezra Gonzalez : 1935 Page 3 of 3 GARCÍA Abbreviation Definition Degree of hearing sensitivity dB range WNL within normal limits WNL 0 - 20 SNHL sensorineural hearing loss Mild 20-40 CHL conductive hearing loss Moderate 40-55 MHL mixed hearing loss Moderately-Severe 55-70 ME middle ear Severe 70-90 OAE Distortion Product Otoacoustic Emissions Profound 90 + TM tympanic membrane Normal [facility] CNOVon 11-27-2018 CNOV Office Visit (AGCARDHWW) EZRA GONZALEZ ([id number]) 1935 F Date Time Provider Department 11/27/18 11:00 AM RICKEY CHAVARRIA AGCARDHWW During your visit today, we recorded the following information about you: Pulse Respiration Blood pressure Weight 66/minute 18/minute 124/70 80.7 kg Height 1.575 m Vika Torres CMA 11/27/2018 11:00 AM Signed Patient has no cardiac complaints today. Vika Chavarria MD 11/27/2018 11:24 AM Signed PRIMARY CARE PHYSICIAN: Jo Perez MD [address] [facility] [address] [place] [address] HISTORY OF PRESENT ILLNESS: Ms. Gonzalez is [...] again. 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 Ezra [...] of the time was spent in direct, qnpg-rb-ymow, contact with the patient for management and counseling. 1. Essential hypertension - ICD9: 401.9, ICD10: I10 (primary diagnosis) 2. Obesity, Class I, BMI 30-34.9 - ICD9: 278.00, ICD10: E66.9 3. Mixed hyperlipidemia - ICD9: 272.2, ICD10: E78.2 4. Paroxysmal atrial fibrillation (HCC) - ICD9: 427.31, ICD10: I48.0 5. Chronic anticoagulation - ICD9: V58.61, ICD10: Z79.01 Rickey Chavarria M.D. [facility] Referring Provider: SELF [[id number]] Allergies As of Date: 11/27/2018 Noted Allergy Reaction CODEINE 03/20/2015 16 - Unknown CRESTOR (ROSUVASTATIN) 03/20/2015 14 - Other: See Comments Comments: Myalgias DEMEROL (MEPERIDINE) 03/20/2015 8 - GI Upset LATEX 03/20/2015 2 - Rash LIPITOR (ATORVASTATIN) 03/20/2015 14 - Other: See Comments Comments: Myalgias Date Reviewed: 11/27/2018 [facility]ed [facility]: [facility] Brian - Fully Assessed Reason for Visit: CARD Follow Up Annual [1232] Primary Visit Diagnosis:Essential hypertension [I10] Other Visit Diagnoses:Obesity, Class I, BMI 30-34.9 [E66.9] Mixed hyperlipidemia [E78.2] Paroxysmal atrial fibrillation (HCC) [I48.0] Chronic anticoagulation [Z79.01] Order(s):ECG B/O W INTERP (MED OFFICE) [ECG06] Order #: [id number] Prescriptions as of 11/27/2018 Sig: SIMVASTATIN 20 [...] stent placement- 2006 [Z95*INVALID FOR* Atherosclerosis of [place] coronary artery of na*INVALID FOR* Asymptomatic cholelithiasis [...] has no cardiac complaints today. Vika Torres [facility] Disposition: Return in about 1 year (around 11/28/2019). Follow-up and Disposition History Recorded Letter Text Encounter Status:Closed by RICKEY CHAVARRIA MD on 11/27/18 Normal [facility] PROGRESSon 11-27-2018 PROGRESS HNO ID: [id number] Author: Rickey Chavarria Service: ? Author Type: Physician Type: Progress Notes Filed: 11/27/2018 11:24 AM Note Text: PRIMARY CARE PHYSICIAN: Jo Perez MD [address] [facility] [address] [place] [address] HISTORY OF PRESENT ILLNESS: Ms. Gonzalez is [...] again. 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 Ezra [...] of the time was spent in direct, whgw-xm-hhkf, contact with the patient for management and counseling. 1. Essential hypertension - ICD9: 401.9, ICD10: I10 (primary diagnosis) 2. Obesity, Class I, BMI 30-34.9 - ICD9: 278.00, ICD10: E66.9 3. Mixed hyperlipidemia - ICD9: 272.2, ICD10: E78.2 4. Paroxysmal atrial fibrillation (HCC) - ICD9: 427.31, ICD10: I48.0 5. Chronic anticoagulation - ICD9: V58.61, ICD10: Z79.01 Rickey Chavarria M.D. [facility] Normal [facility] BONE DENSITY STUDY BY XRAY 7 7080on 07-15-2017 BONE DENSITY STUDY BY XRAY [id number] Performed at [facility] APPROVED BY: Kemar Adams MD EXAMINATION: BONE MINERAL DENSITOMETRY (DEXA SCAN) EXAM DATE: 07/15/2017 09:43 CLINICAL INDICATION: 82-year-old postmenopausal female , follow-up osteoporosis screening. COMPARISON: DEXA scan 10/06/2013. DXA [employer] v.13.4 examination is performed on the lumbar [...] is a trademark of the [employer]'s [facility] Disease, a WHO Collaborating [place]. This applies to men over 50 and [...] high risk for accelerated bone loss). Normal [facility] MAMMOGRAM SCREENING WITH CAD IF PERFORMEDon 06-27-2017 MAMMOGRAM SCREENING WITH CAD IF PERFORMED Performed at [facility] APPROVED BY: Lucas Garrido MD #[id number] - MAMMOGRAM SCREENING WITH CAD IF PERFORMEDBILATERAL DIGITAL SCREENING MAMMOGRAM WITH CAD WITH MEDIOLATERAL OBLIQUE CRANIOCAUDAL: 06/27/2017CLINICAL: Routine screening mammogram. Patient reports no breast problems. Comparison is made to exams dated: 07/22/2016 mammogram - [facility], 06/26/2016 mammogram, 06/09/2015 mammogram, and 04/01/2014 mammogram - [facility]. There are scattered fibroglandular elements in [...] notified of the results. Lucas cortesg/penrad:06/27/2017 11:38:04 Paste Up Artist Apprentice: Loan Summers)(M), [facility] Birad 1 or 2 Mammogram BI-RADS: 1 Negative Normal [facility] Otheron 02-03-2015 CONVERTED CLINICAL HISTORY OPERATIVE PROCEDURE: Colonoscopy CLINICAL INFORMATION: Screening [facility] CONVERTED ELECTRONIC SIGNATURE MO PATRICK M.D., PATHOLOGIST (Electronic signature on file) Final Signed Out: 02/03/2015 12:44 [facility] CONVERTED FINAL DIAGNOSIS FINAL DIAGNOSI S: A) COLON, ASCENDING, BIOPSIES - FRAGMENTS OF TUBULAR ADENOMA. B) COLON, RANDOM BIOPSIES - NO PATHOLOGIC ABNORMALITIES. [facility] CONVERTED GROSS DESCRIPTION GROSS DESCRIPTION: A) [...] submitted in cassette B x 3. SMS:hlm [facility] CONVERTED ORDERING PROVIDER Ordering Provider[facility] CONVERTED ELECTRONIC SIGNATURE RAVINDER HAN M.D., PATHOLOGIST (Electronic signature on file) Final Signed Out: 04/19/2010 14:33 [facility] CONVERTED FINAL DIAGNOSIS FINAL DIAGNOSI S: RIGHT SHOULDER, EXCISION - BONE AND ATTACHED CARTILAGE WITH DEGENERATIVE CHANGES. SYNOVIUM WITH NONSPECIFIC REACTIVE CHANGES AND FOCAL MILD CHRONIC INFLAMMATION. SPECIMEN: SHOULDER [facility] CONVERTED GROSS DESCRIPTION GROSS DESCRIPTION: Rt shoulder tissue The container is labeled right shoulder tissue. Received are portions of pink-[place]ague soft tissue and red-[place]ague bone measuring 3 x 3 x 1 cm in aggregate. Sample of soft tissue is submitted in cassette 1, sample of bone is submitted in cassette 2 following decal. SMS/lrs MICROSCOPIC DESCRIPTION: Slides reviewed. 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 SPECIMEN: FEMORAL HEAD [facility] CONVERTED GROSS DESCRIPTION GROSS DESCRIPTION: Left [...] decal. SMS:ATP:hlm MICROSCOPIC DESCRIPTION: Slides reviewed. SDS/gpl [facility] CONVERTED ORDERING PROVIDER Ordering Provider: CLOTILDE DOSS [facility] Thyroidon 08-02-2009 TSH Dylan TYLER M.D., PATHOLOGIST (Electronic signature on file) Final Signed Out: 08/02/2009 14:47 [facility] 05-11-2001 Cholesterol [Mass/Vol] Ordering Provider : SAE RESENDIZ [facility] Otheron 05-11-2001 CONVERTED ELECTRONIC SIGNATURE MICHAEL HAWTHORNE M.D., PATHOLOGIST (Electronic signature on file) Final Signed Out: 05/11/2001 11:39 [facility] CONVERTED FINAL DIAGNOSIS TISSUE, REMOVE D AT RELEASE OF RIGHT RING FINGER - FIBROCOLLAGENOUS TISSUE WITH FOCAL FIBROBLASTIC REACTION AND FOCAL MIXOID CHANGE. ATTACHED SMALL AMOUNT OF TISSUE CONSISTENT WITH SYNOVIUM. [facility] Vital Signs Date Time Vital Sign Value Performing Clinician Facility 09-13-2024 14:00-0400 Body height 160.[address] Alexandra Hagen MD Work Phone: [facility] 09-13-2024 14:00-0400 Body mass index (BMI) [Ratio] 30.7 kg/m2 Dr. Alexandra Hagen MD Work Phone: [facility] 09-13-2024 14:00-0400 Body temperature 92.6 [degF] Dr. Alexandra Hagen MD Work Phone: [facility] 09-13-2024 14:00-0400 Body weight 78.[address] Alexandra Hagen MD Work Phone: [facility] 09-13-2024 14:00-0400 Diastolic blood pressure 79 mm[Hg] Dr. Alexandra Hagen MD Work Phone: [facility] 09-13-2024 14:00-0400 Heart rate 83 /min Dr. Alexandra Hagen MD Work Phone: [facility] 09-13-2024 14:00-0400 Respiratory rate 17 /min Dr. Alexandra Hagen MD Work Phone: [facility] 09-13-2024 14:00-0400 SaO2% (BldA) [Mass fraction] 97 % Dr. Alexandra Hagen MD Work Phone: [facility] 09-13-2024 14:00-0400 Systolic blood pressure 126 mm[Hg] Dr. Alexandra Hagen MD Work Phone: 7(357)783-087353 [place] [address] 09-11-2024 13:55-0400 Body mass index (BMI) [Ratio] 30.3 kg/m2 Dr. Alexandra Hagen MD Work Phone: 1(960)441-635153 [place] [address] 09-11-2024 09:09-0400 Body temperature 97.8 [degF] Dr. Alexandra Hagen MD Work Phone: 6(249)047-352053 [place] [address] 09-11-2024 09:09-0400 Diastolic blood pressure 85 mm[Hg] Dr. Alexandra Hagen MD Work Phone: 7(807)139-472253 [place] [address] 09-11-2024 09:09-0400 Heart rate 84 /min Dr. Alexandra Hagen MD Work Phone: 2(876)060-616753 [place] [address] 09-11-2024 09:09-0400 Respiratory rate 18 /min Dr. Alexandra Hagen MD Work Phone: 8(107)465-616153 [place] [address] 09-11-2024 09:09-0400 SaO2% (BldA) [Mass fraction] 98 % Dr. Alexandra Hagen MD Work Phone: 1(732)593-797453 [place] [address] 09-11-2024 09:09-0400 Systolic blood pressure 174 mm[Hg] Dr. Alexandra Hagen MD Work Phone: 4(494)141-434953 [place] [address] 09-10-2024 17:17-0400 Body height 160.[address] Alexandra Hagen MD Work Phone: 9(567)112-144853 [place] [address] 09-10-2024 17:17-0400 Body weight 77.[address] Alexandra Hagen MD Work Phone: 4(841)566-147853 [place] [address] 09-10-2024 16:30-0400 Diastolic blood pressure 73 mm[Hg] Dr. Alexandra Hagen MD Work Phone: 0(146)374-014753 [place] [address] 09-10-2024 16:30-0400 Heart rate 79 /min Dr. Alexandra Hagen MD Work Phone: 4(753)360-236953 [place] [address] 09-10-2024 16:30-0400 Respiratory rate 20 /min Dr. Alexandra Hagen MD Work Phone: 9(084)787-609558 [place] [address] 09-10-2024 16:30-0400 SaO2% (BldA) [Mass fraction] 93 % Dr. Alexandra Hagen MD Work Phone: 4(610)510-525553 [place] [address] 09-10-2024 16:30-0400 Systolic blood pressure 118 mm[Hg] Dr. Alexandra Hagen MD Work Phone: 5(595)741-167853 [place] [address] 09-10-2024 16:07-0400 Body temperature 98.3 [degF] Dr. Alexandra Hagen MD Work Phone: 7(196)173-906553 [place] [address] 09-10-2024 14:19-0400 Body height 160.[address] Alexandra Hagen MD Work Phone: 9(466)854-342553 [place] [address] 09-10-2024 14:19-0400 Body mass index (BMI) [Ratio] 26.5 kg/m2 Dr. Alexandra Hagen MD Work Phone: 6(211)105-387153 [place] [address] 09-10-2024 14:19-0400 Body weight 68.[address] Alexandra Hagen MD Work Phone: 5(958)218-328553 [place] [address] 09-08-2024 15:30-0400 Heart rate 64 /min Dr. Alexandra Hagen MD Work Phone: 2(690)654-598553 [place] [address] 09-08-2024 15:30-0400 Respiratory rate 23 /min Dr. Alexandra Hagen MD Work Phone: 8(061)440-194653 [place] [address] 09-08-2024 15:30-0400 SaO2% (BldA) [Mass fraction] 97 % Dr. Alexandra Hagen MD Work Phone: 9(210)375-997758 [place] [address] 09-08-2024 12:22-0400 Body height 160.[address] Alexandra Hagen MD Work Phone: 9(872)348-706858 [place] [address] 09-08-2024 12:22-0400 Body mass index (BMI) [Ratio] 33.5 kg/m2 Dr. Alexandra Hagen MD Work Phone: [facility] 09-08-2024 12:22-0400 Body temperature 98 [degF] Dr. Alexandra Hagen MD Work Phone: [facility] 09-08-2024 12:22-0400 Body weight 85.[address] Alexandra Hagen MD Work Phone: 2(070)246-650899 [address] 09-08-2024 12:22-0400 Diastolic blood pressure 70 mm[Hg] Dr. Alexandra Hagen MD Work Phone: [facility] 09-08-2024 12:22-0400 Systolic blood pressure 131 mm[Hg] Dr. Alexandra Hagen MD Work Phone: 5(310)998-442699 [address] 07-01-2024 10:38-0400 Body height 160.[address] Alexandra Hagen MD Work Phone: 1(912)894-242999 [address] 07-01-2024 10:38-0400 Body mass index (BMI) [Ratio] 30.8 kg/m2 Dr. Alexandra Hagen MD Work Phone: [facility] 07-01-2024 10:38-0400 Body weight 78.[address] Alexandra Hagen MD Work Phone: 3(968)810-193099 [address] 07-01-2024 10:38-0400 Diastolic blood pressure 85 mm[Hg] Dr. Alexandra Hagen MD Work Phone: 0(549)202-718758 [place] [address] 07-01-2024 10:38-0400 Heart rate 60 /min Dr. Alexandra Hagen MD Work Phone: [facility] 07-01-2024 10:38-0400 Respiratory rate 16 /min Dr. Alexandra Hagen MD Work Phone: 2(407)937-845058 [place] [address] 07-01-2024 10:38-0400 Systolic blood pressure 184 mm[Hg] Dr. Alexandra Hagen MD Work Phone: [facility] 05-10-2024 14:35-0500 Body height 160.[address] Alexandra Hagen MD Work Phone: [facility] 05-10-2024 14:35-0500 Body mass index (BMI) [Ratio] 30.9 kg/m2 Dr. Alexandar Hagen MD Work Phone: [facility] 05-10-2024 14:35-0500 Body temperature 97.8 [degF] Dr. Alexandra Hagen MD Work Phone: [facility] 05-10-2024 14:35-0500 Body weight 79.[address] Alexandra Hagen MD Work Phone: [facility] 05-10-2024 14:35-0500 Diastolic blood pressure 86 mm[Hg] Dr. Alexandra Hagen MD Work Phone: [facility] 05-10-2024 14:35-0500 Heart rate 75 /min Dr. Alexandra Hagen MD Work Phone: [facility] 05-10-2024 14:35-0500 Respiratory rate 16 /min Dr. Alexandra Hagen MD Work Phone: [facility] 05-10-2024 14:35-0500 SaO2% (BldA) [Mass fraction] 94 % Dr. Alexandra Hagen MD Work Phone: [facility] 05-10-2024 14:35-0500 Systolic blood pressure 140 mm[Hg] Dr. Alexanrda Hagen MD Work Phone: [facility] 06-20-2023 11:10-0400 Diastolic blood pressure 92 mm[Hg] Sae Conde MD Work Phone: [facility] 06-20-2023 11:10-0400 Heart rate 88 /min Sae Conde MD Work Phone: [facility] 06-20-2023 11:10-0400 Systolic blood pressure 173 mm[Hg] Sae Conde MD Work Phone: [facility] 06-20-2023 05:34-0400 Body temperature 97.39 [degF] Sae Conde MD Work Phone: [facility] 06-20-2023 05:34-0400 Respiratory rate 20 /min Sae Conde MD Work Phone: [facility] 06-20-2023 05:34-0400 SaO2% (BldA) [Mass fraction] 95 % Sae Conde MD Work Phone: [facility] 06-17-2023 18:30-0400 Body height 160 cm Sae Conde MD Work Phone: [facility] 06-17-2023 18:30-0400 Body mass index (BMI) [Ratio] 30.83 kg/m2 Sae Conde MD Work Phone: [facility] 06-17-2023 18:30-0400 Body weight 78.93 kg Sae Conde MD Work Phone: [facility] 06-16-2023 11:02-0400 Body temperature 96.4 [degF] Dr. Rosemary Doran Work Phone: [facility] 06-16-2023 11:02-0400 Diastolic blood pressure 84 mm[Hg] Dr. Rosemary Doran Work Phone: [facility] 06-16-2023 11:02-0400 Heart rate 72 /min Dr. Rosemary Doran Work Phone: [facility] 06-16-2023 11:02-0400 Respiratory rate 16 /min Dr. Rosemary Doran Work Phone: [facility] 06-16-2023 11:02-0400 SaO2% (BldA) [Mass fraction] 96 % Dr. Rosemary Doran Work Phone: [facility] 06-16-2023 11:02-0400 Systolic blood pressure 157 mm[Hg] Dr. Rosemary Doran Work Phone: [facility] 06-16-2023 08:33-0400 Body height 160.[address] Rosemary Doran Work Phone: [facility] 06-16-2023 08:33-0400 Body mass index (BMI) [Ratio] 33.1 kg/m2 Dr. Rosemary Doran Work Phone: [facility] 06-16-2023 08:33-0400 Body weight 84.[address] Rosemary Doran Work Phone: [facility] 05-19-2023 11:21-0500 Body height 160.[address] Rosemary Doran Work Phone: [facility] 05-19-2023 11:21-0500 Body mass index (BMI) [Ratio] 31.6 kg/m2 Dr. Rosemary Doran Work Phone: [facility] 05-19-2023 11:21-0500 Body temperature 97.8 [degF] Dr. Rosemary Doran Work Phone: [facility] 05-19-2023 11:21-0500 Body weight 81.[address] Rosemary Doran Work Phone: [facility] 05-19-2023 11:21-0500 Diastolic blood pressure 90 mm[Hg] Dr. Rosemary Doran Work Phone: [facility] 05-19-2023 11:21-0500 Heart rate 88 /min Dr. Rosemary Doran Work Phone: [facility] 05-19-2023 11:21-0500 Respiratory rate 17 /min Dr. Rosemary Doran Work Phone: [facility] 05-19-2023 11:21-0500 SaO2% (BldA) [Mass fraction] 98 % Dr. Rosemary Doran Work Phone: [facility] 05-19-2023 11:21-0500 Systolic blood pressure 152 mm[Hg] Dr. Rosemary Doran Work Phone: [facility] 05-15-2023 09:01-0500 Body mass index (BMI) [Ratio] 31.6 kg/m2 Dr. Rosemary Doran Work Phone: [facility] 05-15-2023 09:01-0500 Body weight 81.[address] Rosemary Doran Work Phone: [facility] 05-15-2023 09:01-0500 Diastolic blood pressure 85 mm[Hg] Dr. Rosemary Doran Work Phone: [facility] 05-15-2023 09:01-0500 Heart rate 78 /min Dr. Rosemary Doran Work Phone: [facility] 05-15-2023 09:01-0500 Respiratory rate 18 /min Dr. Rosemary Doran Work Phone: [facility] 05-15-2023 09:01-0500 Systolic blood pressure 156 mm[Hg] Dr. Rosemary Doran Work Phone: [facility] 01-20-2023 08:05-0400 Body height 160.[address] Rosemary Doran Work Phone: [facility] 01-20-2023 08:05-0400 Body mass index (BMI) [Ratio] 32 kg/m2 Dr. Rosemary Doran Work Phone: [facility] 01-20-2023 08:05-0400 Body temperature 98 [degF] Dr. Rosemary Doran Work Phone: [facility] 01-20-2023 08:05-0400 Body weight 82.[address] Rosemary Doran Work Phone: [facility] 01-20-2023 08:05-0400 Diastolic blood pressure 90 mm[Hg] Dr. Rosemary Doran Work Phone: [facility] 01-20-2023 08:05-0400 Heart rate 88 /min Dr. Rosemary Doran Work Phone: [facility] 01-20-2023 08:05-0400 Respiratory rate 17 /min Dr. Rosemary Doran Work Phone: [facility] 01-20-2023 08:05-0400 SaO2% (BldA) [Mass fraction] 97 % Dr. Rosemary Doran Work Phone: [facility] 01-20-2023 08:05-0400 Systolic blood pressure 140 mm[Hg] Dr. Rosemary Doran Work Phone: [facility] 12-28-2022 11:09-0400 Body temperature 97.8 [degF] Dr. Rosemary Doran Work Phone: [facility] 12-28-2022 11:09-0400 Diastolic blood pressure 79 mm[Hg] Dr. Rosemary Doran Work Phone: [facility] 12-28-2022 11:09-0400 Heart rate 84 /min Dr. Rosemary Doran Work Phone: [facility] [facility] 12-28-2022 11:09-0400 Respiratory rate 16 /min Dr. Rosemary Doran Work Phone: [facility] 12-28-2022 11:09-0400 SaO2% (BldA) [Mass fraction] 96 % Dr. Rosemary Doran Work Phone: [facility] 12-28-2022 11:09-0400 Systolic blood pressure 169 mm[Hg] Dr. Rosemary Doran Work Phone: [facility] 12-27-2022 19:16-0400 Body height 160.[address] Rosemary Doran Work Phone: [facility] 12-27-2022 19:16-0400 Body mass index (BMI) [Ratio] 32.1 kg/m2 Dr. Rosemary Doran Work Phone: [facility] 12-27-2022 19:16-0400 Body weight 82.[address] Rosemary Doran Work Phone: [facility] 12-05-2022 09:25-0400 Body temperature 98.2 [degF] Dr. Rosemary Doran Work Phone: [facility] 12-05-2022 09:25-0400 Body weight 82.[address] Rosemary Doran Work Phone: [facility] 12-05-2022 09:25-0400 Diastolic blood pressure 85 mm[Hg] Dr. Rosemary Doran Work Phone: [facility] 12-05-2022 09:25-0400 Heart rate 90 /min Dr. Rosemary Doran Work Phone: [facility] 12-05-2022 09:25-0400 SaO2% (BldA) [Mass fraction] 95 % Dr. Rosemary Doran Work Phone: [facility] 12-05-2022 09:25-0400 Systolic blood pressure 145 mm[Hg] Dr. Rosemary Doran Work Phone: [facility] 11-18-2022 11:24-0400 Diastolic blood pressure 82 mm[Hg] Dr. Rosemary Doran Work Phone: [facility] 11-18-2022 11:24-0400 Heart rate 76 /min Dr. Rosemary Doran Work Phone: [facility] 11-18-2022 11:24-0400 Respiratory rate 15 /min Dr. Rosemary Doran Work Phone: [facility] 11-18-2022 11:24-0400 SaO2% (BldA) [Mass fraction] 98 % Dr. Rosemary Doran Work Phone: [facility] 11-18-2022 11:24-0400 Systolic blood pressure 137 mm[Hg] Dr. Rosemary Doran Work Phone: [facility] 11-18-2022 07:55-0400 Body height 160.[address] Rosemary Doran Work Phone: [facility] 11-18-2022 07:55-0400 Body mass index (BMI) [Ratio] 32.9 kg/m2 Dr. Rosemary Doran Work Phone: [facility] 11-18-2022 07:55-0400 Body weight 84.[address] Rosemary Doran Work Phone: [facility] 11-18-2022 07:50-0400 Body temperature 97.8 [degF] Dr. Rosemary Doran Work Phone: [facility] 11-15-2022 10:11-0400 Body mass index (BMI) [Ratio] 32.2 kg/m2 Dr. Rosemary Doran Work Phone: [facility] 11-15-2022 08:55-0400 Body temperature 97.7 [degF] Dr. Rosemary Doran Work Phone: [facility] 11-15-2022 08:55-0400 Diastolic blood pressure 78 mm[Hg] Dr. Rosemary Doran Work Phone: [facility] 11-15-2022 08:55-0400 Heart rate 68 /min Dr. Rosemary Doran Work Phone: [facility] 11-15-2022 08:55-0400 Respiratory rate 16 /min Dr. Rosemary Doran Work Phone: [facility] 11-15-2022 08:55-0400 SaO2% (BldA) [Mass fraction] 96 % Dr. Rosemary Doran Work Phone: [facility] 11-15-2022 08:55-0400 Systolic blood pressure 136 mm[Hg] Dr. Rosemary Doran Work Phone: [facility] 11-14-2022 13:12-0400 Body weight 82.[address] Rosemary Doran Work Phone: [facility] 11-14-2022 12:30-0400 Body temperature 97.6 [degF] Dr. Rosemary Doran Work Phone: [facility] 11-14-2022 12:30-0400 Diastolic blood pressure 101 mm[Hg] Dr. Rosemary Doran Work Phone: [facility] 11-14-2022 12:30-0400 Heart rate 64 /min Dr. Rosemary Doran Work Phone: [facility] 11-14-2022 12:30-0400 Respiratory rate 14 /min Dr. Rosemary Doran Work Phone: [facility] 11-14-2022 12:30-0400 SaO2% (BldA) [Mass fraction] 98 % Dr. Rosemary Doran Work Phone: [facility] 11-14-2022 12:30-0400 Systolic blood pressure 164 mm[Hg] Dr. Rosemary Doran Work Phone: [facility] 11-14-2022 11:02-0400 Body height 160.[address] Rosemary Doran Work Phone: [facility] 11-14-2022 11:02-0400 Body mass index (BMI) [Ratio] 33.7 kg/m2 Dr. Rosemary Doran Work Phone: [facility] 11-14-2022 11:02-0400 Body weight 86.[address] Rosemary Doran Work Phone: [facility] 10-15-2022 09:24-0400 Body height 160.[address] Rosemary Doran Work Phone: [facility] 10-15-2022 09:24-0400 Body mass index (BMI) [Ratio] 30.8 kg/m2 Dr. Rosemary Doran Work Phone: [facility] 10-15-2022 09:24-0400 Body weight 78.[address] Rosemary Doran Work Phone: [facility] 10-15-2022 09:24-0400 Diastolic blood pressure 87 mm[Hg] Dr. Rosemary Doran Work Phone: [facility] 10-15-2022 09:24-0400 Heart rate 73 /min Dr. Rosemary Doran Work Phone: [facility] 10-15-2022 09:24-0400 Respiratory rate 18 /min Dr. Rosemary Doran Work Phone: [facility] 10-15-2022 09:24-0400 Systolic blood pressure 149 mm[Hg] Dr. Rosemary Doran Work Phone: [facility] 09-18-2022 19:36-0400 Diastolic blood pressure 72 mm[Hg] Dr. Rosemary Doran Work Phone: [facility] 09-18-2022 19:36-0400 Systolic blood pressure 140 mm[Hg] Dr. Rosemary Doran Work Phone: [facility] 09-18-2022 08:05-0400 Body height 160.[address] Rosemary Doran Work Phone: [facility] 09-18-2022 08:05-0400 Body mass index (BMI) [Ratio] 31.8 kg/m2 Dr. Rosemary Doran Work Phone: [facility] 09-18-2022 08:05-0400 Body temperature 97.8 [degF] Dr. Rosemary Doran Work Phone: [facility] 09-18-2022 08:05-0400 Body weight 81.[address] Rosemary Doran Work Phone: [facility] 09-18-2022 08:05-0400 Heart rate 111 /min Dr. Rosemary Doran Work Phone: [facility] 09-18-2022 08:05-0400 Respiratory rate 17 /min Dr. Rosemary Doran Work Phone: [facility] 09-18-2022 08:05-0400 SaO2% (BldA) [Mass fraction] 99 % Dr. Rosemary Doran Work Phone: [facility] 09-08-2022 16:03-0400 Diastolic blood pressure 84 mm[Hg] Dr. Rosemary Doran Work Phone: [facility] 09-08-2022 16:03-0400 Heart rate 90 /min Dr. Rosemary Doran Work Phone: [facility] 09-08-2022 16:03-0400 Respiratory rate 20 /min Dr. Rosemary Doran Work Phone: [facility] 09-08-2022 16:03-0400 SaO2% (BldA) [Mass fraction] 97 % Dr. Rosemary Doran Work Phone: [facility] 09-08-2022 16:03-0400 Systolic blood pressure 157 mm[Hg] Dr. Rosemary Doran Work Phone: [facility] 09-08-2022 15:32-0400 Body mass index (BMI) [Ratio] 33.2 kg/m2 Dr. Rosemary Doran Work Phone: [facility] 09-08-2022 15:32-0400 Body weight [address] Rosemary Doran Work Phone: [facility] 09-08-2022 14:26-0400 Body temperature 96.8 [degF] Dr. Rosemary Doran Work Phone: [facility] 04-16-2022 14:26-0500 Body height 160.[address] Rosemary Doran Work Phone: [facility] 04-16-2022 14:26-0500 Body mass index (BMI) [Ratio] 30.6 kg/m2 Dr. Rosemary Doran Work Phone: [facility] 04-16-2022 14:26-0500 Body weight 78.[address] Rosemary Doran Work Phone: [facility] 04-16-2022 14:26-0500 Diastolic blood pressure 60 mm[Hg] Dr. Rosemary Doran Work Phone: [facility] 04-16-2022 14:26-0500 Heart rate 88 /min Dr. Rosemary Doran Work Phone: [facility] 04-16-2022 14:26-0500 Respiratory rate 18 /min Dr. Rosemary Doran Work Phone: [facility] 04-16-2022 14:26-0500 Systolic blood pressure 89 mm[Hg] Dr. Rosemary Doran Work Phone: [facility] 02-11-2022 02:02-0500 Diastolic blood pressure 82 mm[Hg] Dr. Rosemary Doran Work Phone: [facility] 02-11-2022 02:02-0500 Heart rate 74 /min Dr. Rosemary Doran Work Phone: [facility] 02-11-2022 02:02-0500 Respiratory rate 16 /min Dr. Rosemary Doran Work Phone: [facility] 02-11-2022 02:02-0500 SaO2% (BldA) [Mass fraction] 96 % Dr. Rosemary Doran Work Phone: [facility] 02-11-2022 02:02-0500 Systolic blood pressure 106 mm[Hg] Dr. Rosemary Doran Work Phone: [facility] 02-11-2022 00:07-0500 Body height 160.[address] Rosemary Doran Work Phone: [facility] Work Phone: 02-11-2022 00:07-0500 Body mass index (BMI) [Ratio] 33.1 kg/m2 Dr. Rosemary Doran Work Phone: [facility] 02-11-2022 00:07-0500 Body temperature 98.4 [degF] Dr. Rosemary Doran Work Phone: [facility] 02-11-2022 00:07-0500 Body weight 84.[address] Rosemary Doran Work Phone: [facility] 10-18-2021 10:26-0400 Body mass index (BMI) [Ratio] 33.1 kg/m2 Dr. Rosemary Doran Work Phone: [facility] Work Phone: 10-18-2021 10:26-0400 Body weight 84.[address] Rosemary Doran Work Phone: [facility] Work Phone: 10-18-2021 10:26-0400 Diastolic blood pressure 63 mm[Hg] Dr. Rosemary Doran Work Phone: [facility] Work Phone: 10-18-2021 10:26-0400 Heart rate 87 /min Dr. Rosemary Doran Work Phone: [facility] Work Phone: 10-18-2021 10:26-0400 Respiratory rate 20 /min Dr. Rosemary Doran Work Phone: [facility] Work Phone: 10-18-2021 10:26-0400 SaO2% (BldA) [Mass fraction] 96 % Dr. Rosemary Doran Work Phone: [facility] Work Phone: 10-18-2021 10:26-0400 Systolic blood pressure 101 mm[Hg] Dr. Rosemary Doran Work Phone: [facility] Work Phone: Encounters Encounter Date Encounter Type Care Provider Facility Start: 09-17-2024 ambulatory [facility]: [facility] Start: 09-13-2024 End: 09-13-[address] Anant Juarez MD -[facility] Work Phone: Start: 09-13-2024 End: 09-13-[address] Alexandra Hagen MD Work Phone: [facility] Work Phone: Start: 09-13-2024 End: 09-13-2024 ambulatory [facility] Facility:[facility] Start: 09-11-2024 Non-patient / Non-visit Dr. Bai DO [facility] Work Phone: Start: 09-10-2024 End: 09-11-2024 ambulatory [facility] Facility:[facility] Start: 09-10-2024 End: 09-11-2024 Evaluation and management of inpatient Dr. Matthew Oro DO -[facility] Work Phone: Start: 09-10-2024 End: 09-11-[address] Alexandra Hagen MD Work Phone: [facility] Work Phone: Start: 09-08-2024 End: 09-08-2024 Emergency department patient visit Dr. Alexandra Hagen MD Work Phone: -Emergency Department Work Phone: Start: 08-18-2024 End: 08-18-[address] Alexandra Hagen MD Work Phone: [facility] Work Phone: Start: 08-18-2024 End: 08-18-2024 [facility] Work Phone: Start: 08-18-2024 Registered Referred Cesar Leonard [facility] Work Phone: Start: 08-18-2024 End: 08-18-2024 ambulatory Alexandra Hagen Facility:[facility] Start: 07-19-2024 End: 07-19-[address] Alexandra Hagen MD Work Phone: [facility] Work Phone: Start: 07-19-2024 End: 07-19-2024 [facility] Work Phone: Start: 07-19-2024 End: 07-19-2024 ambulatory Cesar MARTINEZ Facility:[facility] Start: 07-01-2024 End: 07-01-[address] Cesar Cole MD -[facility] Work Phone: Start: 07-01-2024 End: 07-01-2024 ambulatory Alexandra aHgen Facility:[facility] Start: 06-16-2024 End: 06-16-[address] Alexandra Hagen MD Work Phone: [facility] Work Phone: Start: 06-16-2024 End: 06-16-[address] Chucky Chang [facility] Work Phone: Start: 06-16-[address] [facility] Work Phone: Start: 06-16-2024 End: 06-16-2024 ambulatory Alexandra Hagen Facility:[facility] Start: 06-09-2024 End: 06-09-[address] Alexandra Hagen MD Work Phone: [facility] Work Phone: Start: 06-09-2024 End: 06-09-[address] Chucky Ochoa MD [facility] Work Phone: Start: 06-09-2024 End: 06-09-2024 ambulatory Alexandra Hagen Facility:[facility] Start: 05-19-2024 End: 05-19-[address] Alexandra Hagen MD Work Phone: [facility] Work Phone: Start: 05-19-2024 End: 05-19-2024 [address] [facility] Work Phone: Start: 05-19-2024 Registered Referred Cesar Leonard [place] [facility] Work Phone: Start: 05-19-2024 End: 05-19-2024 ambulatory Cesar MARTINEZ Facility:[facility] Start: 05-12-2024 ambulatory Alexandra Hagen Facility: [facility] Start: 05-12-2024 Registered [facility] Work Phone: Start: 05-10-2024 End: 05-10-[address] Anant Juarez MD -[facility] Work Phone: Start: 05-10-2024 End: 05-10-2024 ambulatory Anant Juarez Facility:[facility] Start: 05-05-2024 End: 05-05-[address] Alexandra Hagen MD Work Phone: [facility] Work Phone: Start: 05-05-2024 End: 05-05-2024 Departed Referred [facility] Work Phone: Start: 05-05-2024 Registered Referred [facility] Work Phone: Start: 05-05-2024 End: 05-05-2024 ambulatory Cesar MARTINEZ Facility:[facility] Start: 04-28-2024 End: 04-28-[address] Alexandra Hagen MD Work Phone: [facility] Work Phone: Start: 04-28-2024 End: 04-28-[address] [facility] Work Phone: Start: 04-28-2024 End: 04-28-2024 ambulatory Alexandra S Jolliff Facility:[facility] Start: 04-14-2024 ambulatory Alexandra S Xiao Facility: [facility] Start: 04-14-[address] [facility] Work Phone: Start: 04-09-2024 End: 04-09-[address] [facility] Work Phone: Start: 04-09-2024 End: 04-09-2024 ambulatory Alexandra Hagen Facility:[facility] Start: 04-06-2024 End: 04-06-[address] [facility] Work Phone: Start: 04-05-2024 End: 04-06-2024 ambulatory Alexandra S Joleeanna Facility:[facility] Start: 04-05-[address] [facility] Work Phone: Start: 03-29-2024 ambulatory Chucky MARTINEZ Facil ity:[facility] Start: 03-29-[address] [facility] Work Phone: Start: 03-26-2024 ambulatory Chucky Martinezins [facility] Facil ity:[facility] Start: 03-26-[address] [facility] Work Phone: Start: 03-25-2024 ambulatory Chucky Ochoa [facility] Facil ity:[facility] Start: 03-25-[address] [facility] Work Phone: Start: 03-19-2024 ambulatory Chucky Martinezins [facility]LS Facil ity:[facility] Start: 03-19-[address] [facility] Work Phone: Start: 03-17-2024 ambulatory Chucky Martinezins OLS Facil ity:[facility] Start: 03-17-[address] [facility] Work Phone: Start: 03-10-2024 ambulatory Alexandra S Jolliff Facility: [facility] Start: 03-10-[address] [facility] Work Phone: Start: 03-08-2024 ambulatory Alexandra S Jolliff Facility: [facility] Start: 03-08-[address] [facility] Work Phone: Start: 03-04-2024 ambulatory Alexandra S Jolliff Facility: [facility] Start: 03-04-[address] [facility] Work Phone: Start: 02-05-2024 End: 02-05-[address] [facility] Work Phone: Start: 02-05-2024 End: 02-05-2024 ambulatory Alexandra S Jolliff Facility:[facility] Start: 01-08-2024 End: 01-08-2024 ambulatory Alexandra S Jolliff Facility:[facility] Start: 12-26-2023 End: 12-26-2023 ambulatory Alexandra S Jolliff Facility:[facility] Start: 12-19-2023 End: 12-19-2023 ambulatory Alexandra S Jolliff Facility:[facility] Start: 12-18-2023 End: 12-18-2023 ambulatory Chucky Ochoa OLS Facility:[facility] Start: 11-20-2023 ambulatory Chucky Ochoa OLS Facil ity:[facility] Start: 11-05-2023 End: 11-05-2023 ambulatory Chucky Ochoa OLS Facility:[facility] Start: 11-04-2023 End: 11-04-2023 ambulatory Chucky Ochoa OLS Facility:[facility] Start: 10-28-2023 End: 10-28-2023 ambulatory Alexandra S Jolliff Facility:[facility] Start: 10-24-2023 End: 10-24-2023 ambulatory Alexandra S Jolliff Facility:[facility] Start: 10-21-2023 End: 10-21-2023 ambulatory Alexandra S Jolliff Facility:[facility] Start: 10-15-2023 End: 10-15-2023 ambulatory Alexandra S Jolliff Facility:[facility] Start: 10-10-2023 End: 10-10-2023 ambulatory Alexandra S Jolliff Facility:[facility] Start: 09-22-2023 End: 09-22-2023 ambulatory Anant Baddour Facility:[facility] Start: 09-22-2023 End: 09-22-2023 ambulatory Anant Baddour Facility:[facility] Start: 06-30-2023 End: 06-30-[address] Rosemary Doran Work Phone: [facility] Work Phone: Start: 06-30-2023 End: 06-30-[address] Rosemary Doran Work Phone: [facility] Work Phone: Start: 06-16-2023 End: 06-20-2023 Evaluation and management of inpatient [facility] Start: 06-16-2023 End: 06-20-2023 Evaluation and management of inpatient Sae Conde MD Work Phone: [address] Comment on above: Closed displaced fra cture of medial condyle of right humerus, initial encounter (Primary Dx) Start: 06-16-2023 Non-patient / Non-visit Dr. Slim Doran Work Phone: [facility] Start: 06-16-2023 End: 06-16-2023 Emergency department patient visit Dr. Rosemary Doran Work Phone: [facility] Work Phone: Start: 05-30-2023 End: 05-30-[address] Rosemary Doran Work Phone: [facility] Work Phone: Start: 05-30-2023 End: 05-30-[address] Rosemary Doran Work Phone: [facility] Work Phone: Start: 05-19-2023 End: 05-19-[address] Rosemary Doran Work Phone: [facility] Work Phone: Start: 05-15-2023 End: 05-15-[address] Rosemary Doran Work Phone: [facility] Work Phone: Start: 05-12-2023 End: 05-12-[address] Rosemary Doran Work Phone: [facility] Work Phone: Start: 05-12-[address] Rosemary Doran Work Phone: [facility] Work Phone: Start: 05-01-2023 End: 05-01-[address] Rosemary Doran Work Phone: [facility] Work Phone: Start: 05-01-2023 End: 05-01-[address] Rosemary Doran Work Phone: [facility] Work Phone: Start: 04-17-2023 End: 04-17-[address] Rosemary Doran Work Phone: [facility] Work Phone: Start: 04-17-2023 End: 04-17-[address] Rosemary Doran Work Phone: [facility] Work Phone: Start: 04-17-[address] Rosemary Doran Work Phone: [facility] Work Phone: Start: 03-20-2023 End: 03-20-[address] Rosemary Doran Work Phone: [facility] Work Phone: Start: 02-21-2023 End: 02-21-[address] Rosemary Doran Work Phone: [facility] Work Phone: Start: 02-21-2023 End: 02-21-[address] Rosemary Doran Work Phone: [facility] Work Phone: Start: 01-20-2023 End: 01-20-[address] Rosemary Doran Work Phone: [facility] Work Phone: Start: 01-20-2023 End: 01-20-[address] Rosemary Doran Work Phone: [facility] Work Phone: Start: 01-20-2023 End: 01-20-[address] Rosemary Doran Work Phone: [facility] Work Phone: Start: 01-16-2023 End: 01-16-[address] Rosemary Doran Work Phone: [facility] Work Phone: Start: 01-16-2023 End: 01-16-[address] Rosemary Doran Work Phone: [facility] Work Phone: Start: 12-28-2022 Non-patient / Non-visit Dr. Slim Doran Work Phone: [facility] Work Phone: Start: 12-27-2022 Non-patient / Non-visit Dr. Slim Doran Work Phone: [facility] Work Phone: Start: 12-27-2022 End: 12-28-2022 Evaluation and management of inpatient Dr. Rosemary Doran Work Phone: [facility]-Pro[facility] Unit Work Phone: Start: 12-27-2022 End: 12-28-[address] Rosemary Doran Work Phone: [facility] Work Phone: Start: 12-19-2022 End: 12-19-[address] Rosemary Doran Work Phone: [facility] Work Phone: Start: 12-19-2022 End: 12-19-[address] Rosemary Doran Work Phone: [facility] Work Phone: Start: 12-19-[address] Rosemary Doran Work Phone: [facility] Work Phone: Start: 12-09-2022 End: 12-09-[address] Rosemary Doran Work Phone: [facility] Work Phone: Start: 12-09-2022 End: 12-09-[address] Rosemary Doran Work Phone: [facility] Work Phone: Start: 12-09-[address] Rosemary Doran Work Phone: [facility] Work Phone: Start: 12-05-2022 End: 12-05-[address] Rosemary Doran Work Phone: [facility] Work Phone: Start: 11-20-2022 End: 11-20-[address] Rosemary Doran Work Phone: [facility] Work Phone: Start: 11-20-2022 End: 11-20-[address] Rosemary Doran Work Phone: [facility] Work Phone: Start: 08-23-[address] Rosemary Doran Work Phone: [facility] Work Phone: Start: 11-18-2022 End: 11-18-2022 Emergency department patient visit Dr. Rosemary Doran Work Phone: [facility]-Emergency Department Work Phone: Start: 11-15-2022 Non-patient / Non-visit Dr. Slim Doran Work Phone: [facility] Work Phone: Start: 11-14-2022 Non-patient / Non-visit Dr. Slim Doran Work Phone: [facility] Start: 11-14-2022 Non-patient / Non-visit Dr. Slim Doran Work Phone: [facility] Inpatient Physicians Work Phone: Start: 11-14-2022 End: 11-15-2022 Evaluation and management of inpatient Dr. Rosemary Doran Work Phone: [facility] Work Phone: Start: 11-14-[address] Marcelo Doran Work Phone: [facility] Work Phone: Start: 10-23-2022 End: 10-23-[address] Rosemary Doran Work Phone: [facility] Work Phone: Start: 10-23-2022 End: 10-23-[address] Rosemayr Doran Work Phone: [facility] Work Phone: Start: 10-22-2022 End: 10-22-[address] Rosemary Doran Work Phone: [facility] Work Phone: Start: 10-22-2022 End: 10-22-[address] Rosemary Doran Work Phone: [facility]Physical Therapy Work Phone: Start: 10-22-[address] Sada Doran Work Phone: [facility] Work Phone: Start: 10-15-2022 End: 10-15-[address] Rosemary Doran Work Phone: [facility] Work Phone: Start: 09-26-2022 Non-patient / Non-visit Dr. Slim Doran Work Phone: [facility] Start: 09-26-2022 End: 09-26-[address] Rosemary Doran Work Phone: [facility] Work Phone: Start: 09-26-2022 End: 09-26-[address] Rosemary Doran Work Phone: [facility] Work Phone: Start: 09-18-2022 End: 09-18-[address] Rosemary Doran Work Phone: [facility] Work Phone: Start: 09-18-2022 End: 09-18-[address] Rosemary Doran Work Phone: [facility] Start: 09-13-2022 End: 09-13-[address] Rosemary Doran Work Phone: [facility]Laboratory Start: 09-08-2022 End: 09-08-2022 Emergency department patient visit Dr. Rosemary Doran Work Phone: [facility]Emergency Department Start: 09-06-2022 End: 09-06-[address] Rosemary Doran Work Phone: [facility] Start: 09-05-2022 End: 09-05-[address] Rosemary Doran Work Phone: [facility] Start: 08-08-2022 End: 08-08-[address] Rosemary Doran Work Phone: [facility] Start: 06-26-2022 End: 06-26-[address] Rosemary Doran Work Phone: [facility] Work Phone: Start: 06-26-2022 End: 06-26-[address] Rosemary Doran Work Phone: [facility] Start: 06-04-2022 End: 06-04-[address] Rosemary Doran Work Phone: [facility] Work Phone: Start: 06-04-2022 End: 06-04-[address] Rosemary Doran Work Phone: [facility] Start: 04-16-2022 End: 04-16-[address] Rosemary Doran Work Phone: [facility] Start: 02-11-2022 End: 02-11-2022 Emergency department patient visit Dr. Rosemary Doran Work Phone: [facility]Emergency Department Start: 10-18-2021 End: 10-18-[address] Rosemary Doran Work Phone: [facility] Start: 10-12-2019 End: 10-12-2019 Refill Jo Perez Work Phone: [facility] Comment on above: Refill Request; Refi ll Request Start: 02-11-2018 Patient encounter ROSA ELENA AYALALALITHA Cai lity:[facility] Start: 01-05-2018 End: 01-05-2018 Patient encounter JO PEREZ Facility:[facility] Start: 07-21-2017 End: 07-21-2017 Patient encounter RICKEY CHAVARRIA Facility:[facility] Start: 07-15-2017 Patient encounter EDENRUBINA CHRIS Facility:[facility] Start: 07-07-2017 End: 07-07-2017 Patient encounter JO PEREZ Facility:[facility] Start: 06-27-2017 End: 06-27-2017 Patient encounter ALLRUBINA CHRIS Facility:[facility] Start: 06-11-2017 Patient encounter ALLRUBINA CHRIS Facility:[facility] Start: 02-01-2015 End: 02-01-2015 Patient encounter procedure Shi Lester Work Phone: [facility] Start: 02-01-2015 Results Only Shi ford Work Phone: [facility] Start: 04-17-2010 End: 04-17-2010 Patient encounter procedure Cruz Sanchez Work Phone: [facility] Start: 04-17-2010 Results Only Cruz goss Work Phone: [facility] Start: 07-31-2009 End: 07-31-2009 Patient encounter procedure Clotilde Doss Work Phone: [facility] Start: 07-31-2009 Results Only Clotilde murray Work Phone: [facility] Start: 05-07-2001 End: 05-07-2001 Patient encounter procedure Sae Resendiz Work Phone: [facility] Start: 05-07-2001 Results Only Sae rosario Work Phone: [facility] Procedures Date Procedure Procedure Detail Performing Clinician [...] Start: 09-08-[address] 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 - REPRODUCER Work Phone: Start: 06-20-2023 Prothrombin time Sonal hahn Perez STRIPPING AND BOOKING MACHINE OPERATOR - REPRODUCER Work Phone: Start: 06-19-2023 Glucose quantitative blood xcpt reagent strip Connie Perez STRIPPING AND BOOKING MACHINE OPERATOR - REPRODUCER Work Phone: Start: 06-19-2023 Glucose quantitative blood xcpt reagent strip Connie Perez STRIPPING AND BOOKING MACHINE OPERATOR - REPRODUCER Work Phone: Start: 06-19-2023 Glucose quantitative blood xcpt reagent strip Connie Perez STRIPPING AND BOOKING MACHINE OPERATOR - REPRODUCER Work Phone: Start: 06-19-2023 Prothrombin time Merlenedi jovani Perez STRIPPING AND BOOKING MACHINE OPERATOR - REPRODUCER Work Phone: Start: 06-19-2023 Glucose quantitative blood xcpt reagent strip Connie Chris STRIPPING AND BOOKING MACHINE OPERATOR - [facility] Work Phone: Start: 06-19-2023 Basic metabolic pane l calcium total Connie Perez STRIPPING AND BOOKING MACHINE OPERATOR - [facility] Work Phone: Start: 06-18-2023 Glucose quantitative blood [...] metabolic pane l calcium total Connie Perez STRIPPING AND BOOKING MACHINE OPERATOR - [facility] Work Phone: Start: 06-17-2023 Glucose quantitative [...] on above: Performed By: #### L [id number] ####Inspector Final Assembly Conveyor Line: ALEXANDRA BUSTAMANTE ([id number])[facility] ([facility])[address] [place] [address] Start: 06-16-2023 End: 06-16-2023 Radex shoulder complete [...] Start: 06-16-2023 Plain x-ray of elbow Dr Vnace Doran Work Phone: Start: 06-16-2023 CT of [...] Activity Detail Author Start: 09-13-2024 Lamotrigine measurement [facility] Start: 09-13-2024 Measurement of substance [facility] Start: 09-11-2024 Patient discharge [facility] Start: 09-11-2024 Complete blood count [facility] Start: 09-10-2024 Following clinical p athway protocol [facility] Start: 09-10-2024 Transfusion of blood product [facility] Start: 09-10-2024 Aspiration precautions [facility] Start: 09-10-2024 Assessment of risk o f venous thromboembolism [facility] Start: 09-10-2024 Cardiac monitoring [facility] Start: 09-10-2024 Catheterization of vein [facility] Start: 09-10-2024 Consultation [facility] Start: 09-10-2024 Continuous pulse oximetry [facility] Start: 09-10-2024 Electroencephalogram [facility] Start: 09-10-2024 Elevation of head of bed [facility] Start: 09-10-2024 Exercises [facility] Start: 09-10-2024 Insertion of cathete r into peripheral vein [facility] Start: 09-10-2024 Notification of physician [facility] Start: 09-10-2024 Oxygen therapy [facility] Start: 09-10-2024 Patient referral to dietitian [facility] Start: 09-10-2024 Providing care accor ding to standard [facility] Start: 09-10-2024 Referral to occupati onal therapist [facility] Start: 09-10-2024 Referral to service [facility] Start: 09-10-2024 Speech therapy assessment [facility] Start: 09-10-2024 Telemedicine consult ation with patient [facility] Start: 09-10-2024 Tobacco use cessatio n education [facility] Start: 09-10-2024 Vital signs measurements [facility] Start: 09-10-2024 End: 09-10-2024 [facility] Start: 09-10-2024 Verification routine [facility] Start: 09-10-2024 MRI of brain without contrast Brain without Contrast [facility] Start: 09-10-2024 Admission procedure [facility] Start: 09-10-2024 [facility] Start: 09-10-2024 Bacteria identified in Urine by Culture Urine Culture [facility] Start: 09-10-[address] [facility] Start: 09-10-2024 Oxygen therapy [facility] Start: 09-10-2024 [facility] Start: 06-11-2025 Lamotrigine measurement [facility] Start: 01-06-2024 Urine microalbumin profile DTA P,TDAP,TD (1 - Tdap) [facility] Comment on above: Postponed from 06/23 (Declined at this time) Start: 07-28-2023 ADVANCE DIRECTIVE DISCUSSION A DVANCE DIRECTIVE DISCUSSION [facility] Start: 06-16-2023 Application long arm splint shoulder hand APPLY LONG ARM SPLINT [facility] Start: 06-16-2023 [facility] Start: 03-31-2023 Medicare Advantage A nnual Wellness Visit Medicare Advantage Annual Wellness Visit [facility] Start: 01-20-2023 Serum immunofixation [facility] Start: 01-20-2023 Urine immunofixation [facility] Start: 12-28-2022 Patient discharge [facility] Start: 12-28-2022 [facility] Start: 12-27-2022 Following clinical p athway protocol [facility] Start: 12-27-2022 Assessment of risk o f venous thromboembolism [facility] Start: 12-27-2022 Catheterization of vein [facility] Start: 12-27-2022 Incentive spirometry [facility] Start: 12-27-2022 Inhalation therapy procedure [facility] Start: 12-27-2022 Insertion of cathete r into peripheral vein [facility] Start: 12-27-2022 Measuring intake and output [facility] Start: 12-27-2022 Neurological assessment [facility] Start: 12-27-2022 Providing care accor ding to standard [facility] Start: 12-27-2022 Provision of activit y privileges [facility] Start: 12-27-2022 Referral to occupati onal therapist [facility] Start: 12-27-2022 Referral to service [facility] Start: 12-27-2022 Speech therapy assessment [facility] Start: 12-27-2022 [facility] Start: 12-27-2022 Admission procedure [facility] Start: 11-15-2022 Patient discharge [facility] Start: 11-15-2022 Blood chemistry [facility] Start: 11-14-2022 Following clinical p athway protocol [facility] Start: 11-14-2022 Assessment of risk o f venous thromboembolism [facility] Start: 11-14-2022 Cardiac monitoring [facility] Start: 11-14-2022 Catheterization of vein [facility] Start: 11-14-2022 Continuous pulse oximetry [facility] Start: 11-14-2022 Elevation of head of bed [facility] Start: 11-14-2022 Exercises [facility] Start: 11-14-[address] anned interventions [facility] Start: 11-14-2022 Insertion of cathete r into peripheral vein [facility] Start: 11-14-2022 Measuring intake and output [facility] Start: 11-14-2022 MRI of brain without contrast Brain without Contrast [facility] Start: 11-14-2022 Notification of physician [facility] Start: 11-14-2022 Oxygen therapy [facility] Start: 11-14-2022 Patient referral to dietitian [facility] Start: 11-14-2022 Providing care accor ding to standard [facility] Start: 11-14-2022 Referral to occupati onal therapist [facility] Start: 11-14-2022 Referral to service [facility] Start: 11-14-2022 Speech therapy assessment [facility] Start: 11-14-2022 Tobacco use cessatio n education [facility] Start: 11-14-2022 [facility] Start: 11-14-2022 Verification routine [facility] Start: 11-14-2022 Admission procedure [facility] Start: 11-14-2022 Patient referral to dietitian [facility] Start: 09-18-2022 Patient referral [facility] Work Phone: Start: 09-18-2022 Yznaga and lambda light chains [facility] Start: 09-18-2022 Thiamine measurement [facility] Start: 09-17-2022 [facility] Start: 03-26-2020 Hepatitis B screening URINE ALBUMIN:CREATININE RATIO [facility] Start: 03-26-2020 Hepatitis B surface antibody level LDL CHOLESTEROL [facility] Start: 11-30-2019 Influenza vaccination INFLUENZA (#1) [facility] Start: 10-01-2019 [object Object] DIABETIC FOOT EXAM [facility] Start: 09-25-2019 HbA1c (Bld) [Mass fraction] HBA1C [facility] Start: 07-07-2018 Hepatitis C antibody , confirmatory test DILATED RETINAL EXAM [facility] Start: 07-20-2013 DTaP/Tdap/Td Vaccine s (1 - Tdap) DTaP/Tdap/Td Vaccines (1 - Tdap) [facility] Start: 12-05-2010 SHINGRIX VACCINE (2 of 3) CONTRERAS GRIX VACCINE (2 of 3) [facility] Start: 12-05-2010 Zoster Vaccines (2 of 3) Zoste r Vaccines (2 of 3) [facility] Start: 1995 RSV Immunization age d 60 or older (1 - 1-dose 60+ series) RSV Immunization aged 60 or older (1 - 1-dose 60+ series) [facility] Start: 1947 Depression Screening Depression Scre ening [facility] Start: 1935 Screening for osteoporosis Bone Dens ity Scan [facility] Albumin [Moles/volum e] in Serum or Plasma [facility] Albumin/Globulin ratio [facility] Anion gap in Serum or Plasma [facility] Anion gap measurement [facility] Ankle brachial pressure index [facility] Blood ammonia measurement [facility] Blood ammonia measurement [facility] BUN/Creatinine ratio [facility] BUN/Creatinine ratio [facility] Calcium [Mass/volume ] in Serum or Plasma [facility] Calcium [Mass/volume ] in Serum or Plasma [facility] Carbon dioxide, tota l [Moles/volume] in Central venous blood [facility] Carbon dioxide, tota l [Moles/volume] in Serum or Plasma [facility] Chloride [Moles/volu me] in Serum or Plasma [facility] Cholesterol [Mass/vo lume] in Serum or Plasma [facility] Cholesterol [Mass/vo lume] in Serum or Plasma [facility] Cholesterol in HDL [Mass/volume] in Serum or Plasma [facility] Cholesterol in HDL [Mass/volume] in Serum or Plasma [facility] Cholesterol in LDL [Mass/volume] in Serum or Plasma [facility] Creatinine [Mass/vol ume] in Serum or Plasma [facility] Creatinine [Moles/vo lume] in Serum or Plasma [facility] Electrophoresis: [id number] [facility] Electrophoresis: andrew ma globulin [facility] Erythrocyte mean cor puscular volume determination [facility] Globulin measurement [facility] Glucose [Mass/volume ] in Serum or Plasma [facility] Glucose [Mass/volume ] in Serum or Plasma [facility] Hematocrit [Volume F raction] of Blood [facility] Hematocrit [Volume F raction] of Blood [facility] Hemoglobin [Mass/vol ume] in Blood [facility] Hemoglobin [Mass/vol ume] in Blood [facility] IgA [Mass/volume] in Serum or Plasma [facility] IgG [Mass/volume] in Serum or Plasma [facility] IgM [Mass/volume] in Serum or Plasma [facility] Yznaga/lambda light c ant ratio [facility] Lambda light chains. free [Mass/volume] in Serum or Plasma [facility] Lamotrigine measurement [facility] Leukocytes [#/volume ] in Blood [facility] Leukocytes [#/volume ] in Blood [facility] Low density lipoprot ein cholesterol measurement [facility] Mean corpuscular hem oglobin concentration determination [facility] Mean corpuscular hem oglobin concentration determination [facility] Mean corpuscular hem oglobin determination [facility] Mean corpuscular hem oglobin determination [facility] Measurement of renal function [facility] Measurement of renal function [facility] MR Cervical spine [facility] MR Lumbar spine [facility] Neutrophil count [facility] Neutrophil percent differential count [facility] Patient Education [facility] Work Phone: Patient referral [facility] Work Phone: Platelets [#/volume] in Blood [facility] Platelets [#/volume] in Blood [facility] Potassium [Moles/vol ume] in Serum or Plasma [facility] Potassium measurement [facility] Protein electrophore sis panel - Serum or Plasma [facility] Red blood cell count [facility] Red blood cell count [facility] Red cell distributio n width determination [facility] Red cell distributio n width determination [facility] Serum chloride measurement [facility] Serum protein electrophoresis [facility] Sodium [Moles/volume ] in Serum or Plasma [facility] Sodium measurement [facility] Total cholesterol:HD L ratio measurement [facility] Triglycerides measurement [facility] Triglycerides measurement [facility] Troponin T.cardiac [Mass/volume] in Serum or Plasma by High sensitivity method [facility] Troponin T.cardiac [Mass/volume] in Serum or Plasma by High sensitivity method [facility] Urea nitrogen [Mass/ volume] in Serum or Plasma [facility] Urea nitrogen [Mass/ volume] in Serum or Plasma [facility] Urine culture Urine Culture [facility] Urine kappa light ch ain measurement [facility] US Carotid arteries [facility] VLDL cholesterol measurement [facility] VLDL cholesterol measurement [facility] Immunizations Immunization Date Immunization Notes Care Provider Fa cility 06-02-2020 Covid (Moderna) Dr. Rosemary mixon Work Phone: [facility] 05-05-2020 Covid (Moderna) Dr. Rosemary mixon Work Phone: [facility] 04-27-2019 influenza, high dose seasonal, preservative-free Jo Perez [facility] 01-05-2018 influenza, high dose seasonal, preservative-free Jo Perez [facility] 12-12-2014 influenza, seasonal, injectable Jo Perez [facility] 06-15-2014 pneumococcal conjuga te vaccine, 13 valent Jo Perez [facility] 12-06-2013 influenza, seasonal, injectable Jo Lamasdonna [facility] 07-19-2013 tetanus and diphther ia toxoids, adsorbed, preservative free, for adult use (2 Lf of tetanus toxoid and 2 Lf of diphtheria toxoid) Jo Perez [facility] 01-25-2013 influenza, seasonal, injectable Jo Perez [facility] 01-13-2012 influenza, seasonal, injectable Jo Perez [facility] 02-11-2011 influenza, seasonal, injectable Jo Perez [facility] 10-10-2010 zoster vaccine, live Alexia Lishnevs [facility] 03-31-2006 pneumococcal polysaccharide vaccine, 23 valent Jo Perez [facility] Payers Date Payer Category Payer Self-pay [id number] 2023 Medicare [employer] MEDICARE UHC AARP MEDICARE ADVANTAGE [id number] 2023-[facility] [phone] [address] [address] [place] [address] Medicare HMO [id number] 2023 Unknown [id number] 2005 Unknown [id number] [id number].3 .[id number] 1935 Unknown [id number] 2.16.840.1.250525.3.579.2.278 1935 Unknown [id number] 2.16.840.1.765332.3.579.2.278 1935 Unknown [id number] 2.16.840.1.936290.3.579.2.278 1935 Unknown [id number] 2.16.840.1.110972.3.579.2.278 1935 Unknown [id number] 2.16.840.1.597094.3.579.2.278 1935 Unknown [id number] 2.16.840.1.874663.3.579.2.278 1935 Unknown [id number] 2.16.840.1.084343.3.579.2.278 Medicare MEDICARE PART A B [id number] Unknown [id number] Unknown [id number] 2.16.840.1.490415.3.579.2.462 Unknown [id number] 2.16.840.1.166567.3.579.2.462 Unknown [id number] 2.16.840.1.091386.3.579.2.462 Unknown [id number] 2.16.840.1.243115.3.579.2.462 Unknown [id number] 2.16.840.1.317606.3.579.2.462 Unknown [id number] 2.16.840.1.709004.3.579.2.462 Unknown [id number] 2.16.840.1.536613.3.579.2.462 Unknown [id number] 2..840.1.390057.3.579.2.462 Unknown [id number] 2.840.1.032506.3.579.2.462 Unknown [id number] 2.16840.1.260367.3.579.2.462 Unknown [id number] 2..840.1.864509.3.579.2.462 Unknown [id number] 2.16.840.1.806131.3.579.2.462 Unknown [id number] 2.16.840.1.799868.3.579.2.462 Unknown [id number] 2.840.1.814246.3.579.2.462 Unknown [id number] 2.16.840.1.377698.3.579.2.462 Unknown [id number] 2.16.840.1.179420.3.579.2.462 Unknown [id number] 2.16.840.1.293833.3.579.2.462 Unknown [id number] 2.16.840.1.549511.3.579.2.462 Unknown [id number] 2.16840.1.980948.3.579.2.462 Unknown [id number] 2.16.840.1.062652.3.579.2.462 Unknown [id number] 2.16840.1.053564.3.579.2.462 Unknown [id number] 2.16.840.1.897561.3.579.2.462 Unknown [id number] 2.16840.1.055911.3.579.2.462 Unknown [id number] 2.16840.1.807793.3.579.2.462 Unknown [id number] 2.840.1.712406.3.579.2.462 Unknown [id number] 2.840.1.472948.3.579.2.462 Unknown [id number] 2.840.1.858440.3.579.2.462 Unknown [id number] 2.840.1.092339.3.579.2.462 Unknown [id number] 2.840.1.899192.3.579.2.462 Unknown [id number] 2.840.1.267796.3.579.2.462 Unknown [id number] 2.840.1.541561.3.579.2.462 Unknown [id number] 2.840.1.649478.3.579.2.462 Unknown [id number] 2.840.1.050376.3.579.2.462 Unknown [id number] 2.840.1.155191.3.579.2.462 Unknown [id number] 2.840.1.860296.3.579.2.462 Unknown [id number] 2.840.1.761172.3.579.2.462 Unknown [id number] 2.840.1.344103.3.579.2.462 Unknown [id number] 2.840.1.285385.3.579.2.462 Unknown [id number] 2.16.840.1.177369.3.579.2.462 Unknown [id number] 2.16840.1.666540.3.579.2.462 Unknown [id number] 2.16840.1.962261.3.579.2.462 Unknown [id number] 2.16840.1.614045.3.579.2.462 Unknown [id number] 2.16840.1.116474.3.579.2.462 Unknown [id number] Social History Date Type Detail Facility Start: 05-13-2019 End: 09-11-2024 Tobacco smoking status NHIS Former smoker [facility] End: 03-20-2008 History of tobacco use Current smoker [facility] End: 03-20-2008 History of tobacco use Cigarette Smoker [facility] Start: 05-13-2019 End: 06-17-2023 Cigarettes smoked current (pack per day) - Reported [facility] Start: 05-13-2019 End: 06-18-2023 Tobacco use and exposure Never used [facility] Start: 05-13-2019 Alcohol intake Current non-dr rn complex care of alcohol (finding) [facility] Start: 1935 Sex Assigned At Not on file [facility] Exposure to SARS-CoV -2 (event) Not sure [facility] Start: 02-11-2022 End: 06-16-2023 Tobacco smoking status NHIS Unknown if ever smoked [facility] Start: 04-19-2020 Rare [facility] Start: 04-19-2020 None [facility] Start: 04-19-2020 Spouse/ Signif icant Other [facility] Start: 08-11-2020 Non-smoker [facility] Start: 1935 Sex Assigned At Female [facility] Start: 06-18-2023 Tobacco smoking stat us NHIS Never smoked tobacco [facility] Start: 06-17-2023 End: 06-18-2023 AHC Utilities [facility] Has the [employer], [employer], [employer], or water [employer] threatened to shut off services in your home in past 12Mo No [facility] How often to you hav e a drink containing alcohol? Never [facility] How many standard drinks containing alcohol do you have on a typical day? Patient does not drink [facility] (I/We) worried wheth er (my/our) food would run out before (I/we) got money to buy more. Never true [facility] Start: 06-04-2024 End: 07-20-2024 Sex Female (finding) [facility] Medical Equipment Procedure Code Equipment Code [...] instructed [employer] Cancellous 30cc 1-8 - [id number] - [id number] Start: 06-18-2023 Plate Hum Dist 2.7/3.5 83953_imp Start: 06-18-2023 Plate Va Olcrn 2.7/3.5 2h R - [id number]_imp Start: 06-18-2023 Plate Va M-D-Hum 2.7/3.5 1h L - [id number]_imp Start: 06-18-2023 Screw Lck Va 2.1f88x-B T8 Rcs - [id number]_imp Start: 06-18-2023 Screw Lck Va 2.7x58 S-T T8 Rcs - [id number]_imp Start: 06-18-2023 Screw Lck Va 2.6f29s-W T8 Rcs - [id number]_imp Start: 03-20-2024 Screw Lck Va 2.5g31u-C T8 Rcs - [id number] 83967_imp Start: 06-18-2023 Screw Lck Va 2.5a31p-P T8 Rcs - [id number] 83968_imp Start: 06-18-2023 Screw Lck Va 2.7x50 S-T T8 Rcs - [id number] 83969_imp Start: 06-18-2023 Screw Crtx 3.5x22mm S-T - [id number] 83971_imp Start: 06-18-2023 Screw Crtx 3.5x26mm S-T - [id number]_imp Start: 06-18-2023 Screw Lck Va 2.6f97n-S T8 Rcs - [id number]_imp Start: 06-18-2023 Screw Lck Va 2.1g05g-Q T8 Rcs - [id number] 83976_imp Start: 06-18-2023 Screw Lck Va 2.7x56 S-T T8 Rcs - [id number] 83956_imp Start: 06-18-2023 Screw Crtx 3.5x28mm S-T - [id number] 83957_imp Start: 06-18-2023 Screw Crtx 3.5x30mm S-T - [id number] 83958_imp Start: 06-18-2023 Screw Lck Va 2.2o45y-R T8 Rcs - [id number] 83959_imp Start: 06-18-2023 Screw Lck Va 2.3e24c-S T8 Rcs - [id number] 83961_imp Start: 06-18-2023 Goals Date Patient Goal Desired Activity /State Functional Status Date Assessment Result Facility 09-11-2024 Functional status Ambulates [facility] Work Phone: 12-28-2022 Functional status Ambulates [facility] Work Phone: 11-15-2022 Functional status Chair [facility] Work Phone: Mental Status Date Assessment Result Facility 09-11-2024 Cognitive function Voice/Name [facility] Work Phone: 09-10-2024 Cognitive function Voice/Name [facility] Work Phone: 09-08-2024 Cognitive function Voice/Name [facility] Work Phone: 12-28-2022 Cognitive function Voice/Name [facility] Work Phone: 11-18-2022 Cognitive function Level Of Cons ciousness Awake;Alert;Appropriate [facility] Work Phone: 11-15-2022 Cognitive function Appropriate;Cooperativ e [facility] Work Phone: 11-14-2022 Cognitive function Voice/Name [facility] Work Phone: 11-14-2022 Cognitive function Voice/Name [facility] Work Phone: 09-08-2022 Cognitive function Awake;Alert;A ppropriate;Follow s Commands [facility] Work Phone: 02-11-2022 Cognitive function Awake;Alert;Appropriat e [facility] Work Phone: Clinical Notes 02-14-2007 to 09-11-2024 Note Date & Type Note Facility 09-11-2024 Discharge summary [facility] 09-11-2024 Procedure note [facility] 09-11-2024 Discharge summary [facility] 09-11-2024 Discharge summary Note Date/Time September 11, 2024 2:40pm [facility] Medical Records Department [address] [place] [address] Instructions for Home/Discharge Instructions 09/11/24 1214 MR#: [id number] Acct: [id number] Name: EZRA GONZALEZ Rep #:[id number] : 1935 89 From: Matthew carbajal DO [...] Thurman DO; Ashu Leonard MD ~ Signed [facility] Work Phone: 1(139) 368-518606-14-2025 Discharge summary Author Matthew Oro [facility] Note Date/Time September 11, 2024 3:14 pm [facility] Medical Records Department [address] [place] [address] Discharge Summary 09/11/24 1214 MR#: [id number] Acct: [id number] Name: EZRA GONZALEZ Rep #:[id number] : 1935 89 From: Matthew carbajal DO PCP: Dr. Chucky Ochoa DO Status:ADM MARIELOS Location: [place] [address] Providers Date of Admission: 09/10/24 Date of [...] is an 89-year-old female who presented to [facility] ED on 09/10/2024 with dysarthria. 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 Reading Location: [id number] Brain MRI 09/10/24 16:07 IMPRESSION: Atrophy and mild microvascular changes Reading Location: [facility] D/C Instructions DC O2, CPAP, BIPAP [...] Self Care Charges/Coding Visit Charges Inpatient E&M: 30726 Disch Hosp >30min 09/11/24 1444 <Electronically signed [...] DO; Dr. Chucky Ochoa, DO ~* Signed [facility] Work Phone: 1(942) 139-688206-14-2025 Progress note Author Lenin Tamez [facility] Note Date/Time September 11, 2024 10:4 1am [facility] Medical Records Department [address] [place] [address] Progress Note - Neurology 09/11/24 1035 MR#: [id number] Acct: [id number] Name: EZRA GONZALEZ Rep #:[id number] : 1935 89 From: Lenin Morel PCP: Dr. Chucky Ochoa DO Status:ADM MARIELOS Location: [place] [address] Assessment and Plan: Neuro Assessment/Plan Telestroke (Audio/Video Encounter) 89 y/o woman with h/o DM, HTN, Afib on coumadin (INR 2 days ago was 2.9 and 2.4 at [place]) and seizure on lamictal (had last GTC on Friday) p/w transient dysarthria. History is obtained from patient. On my exam, NIHSS-0 and patient reports feeling better. She follows with Dr. Juarez with neurology. CT head- no acute intracranial process. 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 MRI brain - no acute stroke. LDL-100 Diagnosis: TIA Plan: Continue coumadin and statin. Check A1c. Follow up EEG. Continue lamictal.Follow up with neurology as an outpatient. OT/PT/MATCHER. Sign off for now and please call [...] ICA 60% and diffuse narrowing of left FOREST SCIENCE PROFESSOR. MRI brain - no acute stroke. Today, [...] (Auto) 72.3 H, Lymph % (Auto) 16.6 L,[place] % (Auto) 9.1, Eos % (Auto) 1.2, [...] Clarity Clear, Urine pH 5.0, Ur Specific [place] 1.010, Urine Protein 30 H, Urine Glucose [...] Catch Urine Culture - Preliminary GNR lactose gastroenterology teacher Radiography Diagnostic Testing: Radiology Impression Brain CT 09/10/24 13:55 IMPRESSION: CHRONIC CHANGES. NO ACUTE FINDINGS. Red Alert: Chronic changes. The critical information above was relayed directly by me by telephone to Teri Garcia on 09/10/2024 at 2:05 pm with readback verification. Reading Location: [id number]-T Head/Neck CTA 09/10/24 13:55 IMPRESSION: Calcific plaque [...] 3:01 pm with readback verification. Reading Location: [id number]-A Brain MRI 09/10/24 16:07 IMPRESSION: Atrophy and mild microvascular changes Reading [facility] Rhythm Strip Rhythm Strip: A-fib Rate: [...] and with change in RN caregiver. Freq: [id number] Protocol: Activity Type Activity Date Activity User E-sign Co-sign Detail Recorded Client Recorded Date Recorded By Document 09/11/24 09:08 YOVANY [id number] 09/11/24 09:08 YOVANY 09/11/24 09:08 NIH Stroke [...] Cosigner Signature (if applicable): CC: ~ Signed [facility] Work Phone: 1(798) 736-874306-14-2025 [facility] Medical Records Department [address] [place] [address] Discharge Summary 09/11/24 1214 MR#: [id number] Acct: [id number] Name: EZRA GONZALEZ Rep #: [id number] : 1935 89 From: Matthew Oro DO PCP: Dr. Chucky Ochoa DO Status:ADM MARIELOS Location: [place] [address] Providers Date of Admission: 09/10/24 Date of [...] is an 89-year-old female who presented to [facility] ED on 09/10/2024 with dysarthria. Short [...] and non- distended Anastasia (more content not included)...[facility]06-14-2025 Progress note [facility] Medical Records Department [address] [place] [address] Progress Note - Neurology 09/11/24 1035 MR#: [id number] Acct: [id number] Name: EZRA GONZALEZ Rep #:[id number] : 1935 89 From: Lenin Morel PCP: Dr. Chucky Ochoa, DO Status:ADM MARIELOS Location: [place] [id number]- Assessment and Plan: Neuro Assessment/Plan Telestroke (Audio/Video Encounter) 89 y/o woman with h/o DM, HTN, Afib on coumadin (INR 2 days ago was 2.9 and 2.4 at [place]) and seizure on lamictal (had last GTC on Friday) p/w transient dysarthria. History is obtained from patient. On my exam, NIHSS-0 and patient reports feeling better. She follows with Dr. Juarez with neurology. CT head- no acute intracranial process. 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 MRI brain - no acute stroke. LDL-100 Diagnosis: TIA Plan: Continue coumadin and statin. Check A1c. Follow up EEG. Continue lamictal.Follow up with neurology as an outpatient. OT/PT/MATCHER. Sign off for now and please call [...] ICA 60% and diffuse narrowing of left FOREST SCIENCE PROFESSOR. MRI brain - no acute stroke. Today, [...] %(Auto) 72.3 H, Lymph % (Auto) 16.6 L,[place] % (Auto) 9.1, Eos % (Auto) 1.2, [...] Clarity Clear, Urine pH 5.0, Ur Specific [place] 1.010, Urine Protein 30 H, Urine Glucose [...] Catch Urine Culture - Preliminary GNR lactose gastroenterology teacher Radiography Diagnostic Testing: Radiology Impression Brain CT 09/10/24 13:55 IMPRESSION: CHRONIC CHANGES. NO ACUTE FINDINGS. Red Alert: Chronic changes. The critical information above was relayed directly by me by telephone to Teri Garcia on 09/10/2024 at 2:05 pm with readback verification. Reading Location: [id number]-R Head/Neck CTA 09/10/24 13:55 IMPRESSION: Calcific plaque [...] 3:01 pm with readback verification. Reading Location: [id number]-M Brain MRI 09/10/24 16:07 IMPRESSION: Atrophy and mild microvascular changes Reading [facility] Rhythm Strip Rhythm Strip: A-fib Rate: [...] and with change in RN caregiver. Freq: [id number] Protocol: Activity Type Activity Date Activity User E-sign Co-sign Detail Recorded Client Recorded Date Recorded By Document 09/11/24 09:08 YOVANY [id number] 09/11/24 09:08 YOVANY 09/11/24 09:08 NIH Stroke [...] Cosigner Signature (if applicable): CC: ~ Signed [facility]06-13-2025 History and physical note Author Matthew Oro [facility] Note Date/Time September 10, 2024 5:27 pm [facility] Medical Records Department [address] [place] [address] H&P Exam - Hospitalist 09/10/24 1603 MR#: [id number] Acct: [id number] Name: EZRA GONZALEZ Rep #:[id number] : 1935 89 From: Matthew carbajal DO PCP: Dr. Chucky Ochoa DO Status:ADM MARIELOS Location: [place] [address] HPI - General General Date of Admission: 09/10/24 Date of Service: 09/10/24 Chief Complaint: Dysarthria HPI Narrative EZRA GONZALEZ, is a 89 F who presented to [facility] ED on 09/10/2024 with dysarthria. [facility] [place]. Has history of seizures and is on [...] any other acute concerns at this time. 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 Reading Location: [id number] Head/Neck CTA 09/10/24 13:55 IMPRESSION: Calcific plaque [...] is an 89-year-old female who presented to [facility] ED on 09/10/2024 with dysarthria. 1. [...] 55 minutes. Charges/Coding Visit Charges Inpatient E&M: 98667 Init Hosp L2 09/10/247 <Electronically signed by Matthew Oro DO> Cosigner Signature (if applicable): CC: Dr. Matthew Oro DO; Dr. Chucky Ochoa DO~ Signed [facility] Work Phone: 1(397) 552-851406-13-2025 Discharge summary Author [facility] Note Date/Time September 10, 2024 4:17 pm [facility] Medical Records Department [address] [place] [address] Emergency Department Summary 09/10/24 MR#: [id number] Acct: [id number] Name: EZRA GONZALEZ Rep #:[id number] : 1935 89 From: Teri Echeverria PCP: [...] son Wilfredo (her eldest son) phone number [phone]. He states that she follows with Dr. [...] Spinal stenosis Osteoarthritis Atherosclerotic heart disease of [place] coronary artery without angina pectoris Type 2 [...] 72.3 H Lymph % (Auto) 16.6 L [place] % (Auto) 9.1 Eos % (Auto) 1.2 [...] Clarity Clear Urine pH 5.0 Ur Specific [place] 1.010 Urine Protein 30 H Urine Glucose [...] 2:05 pm with readback verification. Reading Location: [id number] Head/Neck CTA 09/10/24 13:55 IMPRESSION: Calcific plaque [...] segments Management Discussion w/another healthcare provider: Hospitalist, Crop Supervisor and Radiologist Discharge Plan Triage Chief Complaint: Stroke Alert ED Provider: Teri Garcia Dx/Rx/DC Orders Clinical Impression: Difficulty with speech, MCC current use of anticoagulant, Atrial fibrillation, chronic, [...] DO [Primary Care Provider] - Print Language: Martiniquais Disposition Disposition: Acute Care Hospital [facility] NIHSS NIHSS 1a. Level of [...] No aphasia; normal 10. Dysarthria: 1 = Uwbs-qb-vfzrtgsm dysarthria; 11. Extinction and Inattention: 0 - [...] problems, contact your Primary Care Provider. Call [email or web address] Registry ([phone]) or report to the closest Emergency Room. Call 911 if necessary. 09/10/24 1617 <Electronically signed by Teri Garcia DO> Cosigner Signature (if applicable): CC: Dr. Chucky Ochoa DO ~ Signed [facility] Work Phone: 1(952) 579-215706-13-2025 History and physical note [facility] Medical Records Department [address] [place] [address] H&P Exam - Hospitalist 09/10/24 1603 MR#: [id number] Acct: [id number] Name: EZRA GONZALEZ Rep #:[id number] : 1935 89 From: Matthew carbajal DO PCP: Dr. Chucky Ochoa DO Status:ADM MARIELOS Location: [place] [address] HPI - General General Date of Admission: 09/10/24 Date of Service: 09/10/24 Chief Complaint: Dysarthria HPI Narrative EZRA GONZALEZ, is a 89 F who presented to [facility] ED on 09/10/2024 with dysarthria. Patient lives at assisted living at [place]. Has history of seizures and is on [...] any other acute concerns at this time. 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 Reading Location: [id number] Head/Neck CTA 09/10/24 13:55 IMPRESSION: Calcific plaque [...] 3:01 pm with readback verification. Reading Location: [facility] Assessment & Plan Assessment/Plan (1) Difficulty with speech: PLAN: Plan Patient is an 89-year-old female who presented to [facility] ED on 09/10/2024 with dysarthria. 1. [...] 55 minutes. Charges/Coding Visit Charges Inpatient E&M: 45260 Init Hosp L2 09/10/24 1727 Cosigner Signature (if applicable): CC: Dr. Matthew Oro DO; Dr. Chucky Ochoa DO~ Signed [facility]06-13-2025 Discharge summary [facility] Medical Records Department [address] [place] [address] Emergency Department Summary 09/10/24 MR#: [id number] Acct: [id number] Name: EZRA GONZALEZ Rep #:[id number] : 1935 89 From: Teri Echeverria PCP: [...] son Wilfredo (her eldest son) phone number [phone]. He states that she follows with Dr. [...] Spinal stenosis Osteoarthritis Atherosclerotic heart disease of [place] coronary artery without angina pectoris Type 2 [...] 72.3 H Lymph % (Auto) 16.6 L [place] % (Auto) 9.1 Eos % (Auto) 1.2 [...] Clarity Clear Urine pH 5.0 Ur Specific [place] 1.010 Urine Protein 30 H Urine Glucose [...] 2:05 pm with readback verification. Reading Location: [id number]-O Head/Neck CTA 09/10/24 13:55 IMPRESSION: Calcific plaque [...] 3:01 pm with readback verification. Reading Location: [id number]-E Rhythm Strip Rhythm Strip: A-fib Rate: 75 Ectopy: None EKG Initial EKG: Attestation: I personally reviewed and interpreted this EKG as follows: Interpretation: Atrial Fibrillation Comments: Atrial fibrillation at a rate of 75 bpm Left axis deviation Moderate voltage criteria for LVH Normal ST segments Management Discussion w/another healthcare provider: Hospitalist, Crop Supervisor and Radiologist Discharge Plan Triage Chief Complaint: Stroke Alert ED Provider: Teri Garcia Dx/Rx/DC Orders Clinical Impression: Difficulty with speech, MCC current use of anticoagulant, Atrial fibrillation, chronic, [...] directed Primary Care Provider: Chucky Ochoa Referrals: hCucky Ochoa DO [Primary Care Provider] - Print Language: Martiniquais Disposition Disposition: Acute Care Hospital [facility] NIHSS NIHSS 1a. Level of [...] No aphasia; normal 10. Dysarthria: 1 = Rfck-iu-wccfhpaj dysarthria; 11. Extinction and Inattention: 0 - [...] your Primary Care Provider. Call [facility] ([phone]) or report tothe closest Emergency Room. Call 911 if necessary. 09/10/24 1617 Cosigner Signature (if applicable): CC: Dr. Chucky Ochoa DO ~ Signed [facility]06-13-2025 Radiology Diagnostic study note [facility] Imaging Services [address] [place] [address] STROKE CTA Head AND Neck W/Con MR#: [id number] Acct: [id number] Name: EZRA GONZALEZ Rep #: [id number] : 1935 F 89 From: Jian Gipson MD PCP: Dr. Chucky Ochoa DO Status: REG ER Study:STROKE CTA Head AND Neck W/Con Date of Exam: 09/10/24 Exam# [id number] Ordering Dr: Adeel Garcia DO PROCEDURE: STROKE [...] RIGHT Vertebral: Unremarkable. LEFT Vertebral: Unremarkable. Anatomy: [place] of [place] anatomy is normal. Aneurysm or [...] 3:01 pm with readback verification. Reading Location: [id number] CC: Dr. Teri Garcia DO; Dr. Chucky Ochoa DO ~ Nonprofit Financial Controller: Signed [facility]06-13-2025 Radiology Diagnostic study note [facility] Imaging Services [address] [place], [place] [address] STROKE Brain/Head without Cont MR#: [id number] Acct: [id number] Name: EZRA GONZALEZ Rep #: [id number] : 1935 F 89 From: Jian Gipson MD PCP: Dr. Chucky Ochoa DO Status: REG ER Study:STROKE Brain/Head without Cont Date of Exam: 09/10/24 Exam# [id number] Ordering Dr: Adeel Garcia DO PROCEDURE: STROKE [...] 2:05 pm with readback verification. Reading Location: [id number] CC: Dr. Teri Garcia DO; Dr. 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 Glucose is slight [id number] with a normal CO2 anion gap. Labs: Laboratory Results - last 24 hr 09/08/24 12:50 WBC 13.6 H RBC 4.40 Hgb 13.8 Hct 41.4 MCV 94.1 MCH 31.4 MCHC 33.3 RDW Std Deviation 45.2 H RDW Coeff of [place] 13.2 Plt Count 326 MPV 10.8 Immature Gran % (Auto) 0.400 Neut % (Auto) 75.9 H Lymph % (Auto) 16.2 L [place] % (Auto) 6.6 Eos % (Auto) 0.7 [...] with her neurologist Dr. Juarez Print Language: Martiniquais Disposition Disposition: Home, Self Care What to do if you have Problems For any increased pain, shortness of breath, bleeding, nausea or vomiting, chestpain, or any unexpected problems, contact your Primary Care Provider. Call [facility] ([phone]) or report tothe closest Emergency Room. Call 911 if necessary. 09/08/24 1516 Cosigner Signature (if applicable): CC: Dr. Chucky Ochoa MD ~ Signed [facility]06-11-2025 Discharge summary Author Anoop Blackmon [facility] Note Date/Time September 08, 2024 3:16 pm [facility] Medical Records Department [address] [place] [address] Emergency Department Summary 09/08/24 MR#: [id number] Acct: [id number] Name: EZRA GONZALEZ Rep #:[id number] : 1935 89 From: Anoop Blackmon MD [...] Spinal stenosis Osteoarthritis Atherosclerotic heart disease of [place] coronary artery without angina pectoris Type 2 [...] creatinine ratio of 35:1. Glucose is slight [id number] with a normal CO2 anion gap. Labs: Laboratory Results - last 24 hr 09/08/24 12:50 WBC 13.6 H RBC 4.40 Hgb 13.8 Hct 41.4 MCV 94.1 MCH 31.4 MCHC 33.3 RDW Std Deviation 45.2 H RDW Coeff of [place] 13.2 Plt Count 326 MPV 10.8 Immature Gran % (Auto) 0.400 Neut % (Auto) 75.9 H Lymph % (Auto) 16.2 L [place] % (Auto) 6.6 Eos % (Auto) 0.7 [...] with her neurologist Dr. Juarez Print Language: Martiniquais Disposition Disposition: Home, Self Care What to do if you have Problems For any increased pain, shortness of breath, bleeding, nausea or vomiting, chestpain, or any unexpected problems, contact your Primary Care Provider. Call [facility] ([phone]) or report to the closest Emergency Room. Call 911 if necessary. 09/08/24 1516 <Electronically signed by Anoop Blackmon MD> Cosigner Signature (if applicable): CC: Dr. Chucky Ochoa MD ~ Signed [facility] Work Phone: 1(907) 133-577904-03-2025 Evaluation note* Diagnosis Onset Date Resolution Status Admit Date Longstanding persistent atrial fibrillation acute July 01, 025 10:35am Essential (primary) hypertension chronic July 01, 2024 10:35am History of coronary artery stent placement February 14, 2007 resolved July 01 025 10:35am [facility] Work Phone: 1(221) 426-478904-03-2025 Evaluation note* Diagnosis Onset Date Resolution Status Admit Date Longstanding persistent atrial fibrillation acute July 01, 2 025 10:35am Essential (primary) hypertension chronic July 01, 2024 10:35am History of coronary artery stent placement February 14, 2007 resolved July 01 025 10:35am Difficulty with speech acute [facility] 2024 4:03pm [facility] Work Phone: 1(915) 665-292504-03-2025 Evaluation note* Diagnosis Onset Date Resolution Status Admit Date Longstanding persistent atrial fibrillation acute July 01, 2 025 10:35am Essential (primary) hypertension chronic July 01, 2024 10:35am History of coronary artery stent placement February 14, 2007 resolved July 01, 025 10:35am Difficulty with speech acute [facility] 2024 4:03pm 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 2:04pm [facility] Work Phone: [phone] Evaluation note* Diagnosis Onset Date Resolution Status Admit Date Longstanding persistent atrial fibrillation acute July 01, 2 025 10:35am Essential (primary) hypertension chronic July 01, 2024 10:35am History of coronary artery stent placement February 14, 2007 resolved July 01 025 10:35am Difficulty with speech resolved 2024 4:03pm 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 2:04pm [facility] Work Phone: 1(176) 548-547202-10-2025 Evaluation note* Diagnosis Onset Date Resolution Status Admit Date Dementia acute May 10, 2024 2:34pm Epilepsy acute May 10, 2024 2:34pm Transient ischemic attack resolved May 10, 2024 2:34pm [facility] Work Phone: 1(858) 127-944802-10-2025 Evaluation note* Diagnosis Onset Date Resolution Status Admit Date Dementia acute May 10, 2024 2:34pm Epilepsy acute May 10, 2024 2:34pm Transient ischemic attack resolved May 10, 2024 2:34pm Longstanding persistent atrial fibrillation acute July 01, 025 10:35am Essential (primary) hypertension chronic July 01, 2024 10:35am History of coronary artery stent placement February 14, 2007 resolved July 01, 2024 10:35am [facility] Work Phone: 1(838) 863-381003-22-2024 NoteStart PACC Note Home Health Referral Educated patient on Home Care and services available. Patient offered choice of available HHC and agreeable to PT/OT services with [facility] - Home Care. [...] is noted as yes - consider a CUTTER INSPECTOR evaluation once the patient returns home. START PATIENT REGISTRATION INFORMATION Order Information Order Signing Physician: Connie Perez APRN * Service Ordered RN ?: No Service Ordered PT ?: Yes Service Ordered OT ?: Yes Service Ordered ST ?: No Service Ordered CUTTER INSPECTOR?:No Service Ordered DIGITAL AD TRAFFICKER?: No Following Physician: ALEXANDRA HAGEN Following Physician Overseeing Physician: ALEXANDRA HAGEN (Required for Residents only) Agreeable to Follow? No Date/Time of Call 06/20/23 2:40 PM, Spoke with: BRYAN FOR OFFICE-CONFIRMED WITH JOSEP THIS IS HER PHYSICAN AND CAN SEE RECENT NOTES IN [facility] Care Coordination Same Day SOC?: No Primary Care Physician: ALEXANDRA HAGEN Primary Care Physician Primary Care Physician Address: [address] [place] [address] [address] / [facility] [phone] Visit Instructions: N/A Service Discharge Location Type: Assisted Living Service Facility Name: [facility] Floor Facility: N/A Service Room No: 105 Demographics Patient Last Name: Lisa Patient First Name: Ezra Language/Communication Barrier: NONE Service Address: [address] [place] [address] Service City: [facility] ST: [place] Service ZIP: [address] Service (home) Other phone numbers: No relevant phone numbers on file. Emergency Contact: Extended Emergency Contact Information Primary Emergency Contact: Patito Cuba Mobile Relation: Son [employer] Specialist needed? No Secondary Emergency Contact: Ty Cuba Mobile Relation: Son Admission Information Admit Date: 06/16/2023 Patient status at discharge: Inpatient Admitting Diagnosis: Closed displaced fracture of medial condyle of right humerus, initial encounter [F57.325J] Caregiver Information Caregiver First Name: NA Caregiver Last Name: NA Caregiver Relationship to Patient NA Caregiver Phone Number: NA Caregiver Notes: N/A [employer]-Everywun List No END PATIENT REGISTRATION INFORMATION Pt [...] medications. Discharge Date: 06/20/23 Referral Source-PACC: (Hospital/Unit): [facility] / E7-707/E7-707 A End PACC [facility]03-22-2024 History of Present illness Narrative* Juanjo Villalba RN - 06/20/2023 3:51 PM EDT Dc via CRISTINA cot to Josep MCARTHUR with all belongings * Juanjo Villalba RN - 06/20/2023 3:01 PM EDT Called report to Maryanne kim walton * Dc Lombardi - 06/20/2023 2:26 PM EDT [facility] Anticoagulation Management Service (RIA) Inpatient Warfarin Consult HPI: Ezra Gonzalez is a 87 y.o. female admitted on 06/16/2023 for Closed displaced fracture of medial condyle of right humerus, initial encounter [S42.166B] History reviewed. No pertinent past medical history. [...] patient can be classified as high risk ([id number] = 8). 2. Monitor for s/s of bleeding and drug interactions. Will adjust dose accordingly 3. RIA will manage while inpatient Dc Lombardi, JpD Candidate Jp BolanosD, BCPS RIA is available daily [phone] via [employer]. If no response on [employer] then please page [phone]. * Shayne Fonseca MD - 06/20/2023 6:05 [...] off at this time. Please page resident still operator batch or continuous on Secure Chat with concerns or should [...] were not included. PHYSICAL THERAPY [facility] Initial Evaluation Name/MRN: Ezra Gonzalez ([id number]) Evaluation Date: 06/19/2023 Date of : 1935 Admission Date: 06/16/2023 1:38 PM Age: 87 y.o. Room/Bed: E7-707/E7-707 A Discharge Recommendation: Home with Home health PT (return to [place]) Equipment Needed: No Assessment IMPRESSION: 87 y.o. pt admitted to [facility] for closed fracture RUE, s/p ORIF R humerus 06/17. They were Min A for bed mobility, Min A for transfers, and Min A for ambulation. Pt limited d/t balance. If from [place] where she can receive Min A for all ADLs and mobility. Would recommend return to [place] and [facility] PTat discharge. Diagnosis: closed fracture RUE, s/p [...] correction Ambulation Ambulation 1 Assistive device(s) used: DIGITAL AD TRAFFICKER Assist level: Min Assist Distance (ft): 15' [...] Raw Score (No Stairs) : 18 [facility] Score: Walked 25 ft or more [...] of Care supervision is transferred to a [facility] Therapy Services Physical Therapist. Goals and/or treatment plan was established in collaboration with patient/family/other representatives. * Enedelia Sanches RPh - 06/19/2023 1:50 PM EDT [facility] Anticoagulation Management Service (RIA) Inpatient Warfarin Consult HPI: Ezra Gonzalez is a 87 y.o. female admitted on 06/16/2023 for Closed displaced fracture of medial condyle of right humerus, initial encounter [S42.193U] History reviewed. No pertinent past medical history. [...] patient can be classified as high risk ([id number] = 8). 2. Monitor for s/s of bleeding and drug interactions. Will adjust dose accordingly 3. RIA will manage while inpatient Dc Lombardi, JpD Candidate Toshia Sanches, JpD, BCPS RIA is available daily [phone] via [employer]. If no response on [employer] Chat then please page [phone]. * Kavon Diallo OT - 06/19/2023 11:54 AM EDT Images from the original note were not included. OCCUPATIONAL THERAPY [facility] Initial Evaluation Name/MRN: Ezra Gonzalez ([id number]) Evaluation Date: 06/19/2023 Date of : 1935 Admission Date: 06/16/2023 1:38 PM Age: 87 y.o. [facility] A Discharge Recommendation: Continue to assess pending [...] of Care supervision is transferred to a [facility] Occupational Therapist. Goals and/or treatment plan was established in collaboration with patient/family/other representatives. * Connie Perez APRN - REPRODUCER - 06/19/2023 9:52 AM EDT Images from the original note were not included. Hospitalist Progress Note 06/19/2023 Subjective: Admit Date: 06/16/2023 PCP: No primary care provider on file. Room#: E7-707/E7700 A BRIEF HOSPITAL COURSE: Ezra is a [...] Eating and drinking fair, [place]. Understands likely not back to [place] as [...] Emergency Contact: Patito Cuba Mobile Relation: Son [employer] Specialist needed? No Secondary Emergency Contact: Ty Cuba Mobile Relation: Son Connie JANNETTE Perez CNP Division of Hospitalist Medicine [facility] * Huma Tavarez MD - [...] be monitored and followed by the diet agricultural service technician. NICA Watts * Louisa Cespedes OT - 06/18/2023 8:26 AM EDT Images from the original note were not included. OCCUPATIONAL THERAPY [facility] Name/MRN: Ezra Gonzalez ([id number]) Date: 06/18/2023 OT eval and treat order received. Patient chart reviewed. Per Ortho note, Plan for ORIF od R distal humerus. Will hold evaluation till after surgery. Louisa Cespedes OT * JANNETTE Hall CNP - 06/18/2023 8:00 AM EDT Images from the original note were not included. Hospitalist Progress Note 06/18/2023 Subjective: Admit Date: 06/16/2023 PCP: No primary care provider on file. Room#: A0-192/Y0-736 A BRIEF HOSPITAL COURSE: Ezra is a [...] Emergency Contact: Patito Cuba Mobile Relation: Son [employer] Specialist needed? No Secondary Emergency Contact: Ty Cuba Mobile Relation: Son Cnonie JANNETTE Perez CNP Division of Hospitalist Medicine [facility] * Maryanne Neumann PT - 06/18/2023 7:27 AM EDT Images from the original note were not included. PHYSICAL THERAPY [facility] Name/MRN: Ezra Gonzalez ([id number]) Date: 06/18/2023 PT orders received and chart [...] tomorrow, 06/17. Ok for diet today. NPO @[place]. Keep splint C/D/I. Evette Viera MD Orthopaedic Surgery, PGY-5 [phone] * Connie Perez APRN - REPRODUCER - 06/17/2023 7:46 AM EDT Images from [...] Emergency Contact: GillesPatito husain Mobile Relation: Son [employer] Specialist needed? No Secondary Emergency Contact: GillesrodrigueTy Mobile Relation: Son JANNETTE Hall CNP Division of Hospitalist Medicine [facility] * Shayne Fonseca MD - [...] + AIN/PIN/ulnar nerve functions documented in this [facility]03-22-2024 Miscellaneous Notes* Care Coordination - Unknown Case Management - 06/20/2023 2:58 PM EDT Patient Choice Patient Name: EZRA GONZALEZ Date of : 1935 All Providers Sent Referral Name: [facility] Phone: [phone] Address: [address] [place] [address] * Home Care - Vivian Bills RN - 06/20/2023 2:40 PM EDT Start PACC Note Home Health Referral Educated patient on Home Care and services available. Patient offered choice of available HHC and agreeable to PT/OT services with [facility] - Home Care. Care Types: [...] is noted as yes - consider a CUTTER INSPECTOR evaluation once the patient returns home. START PATIENT REGISTRATION INFORMATION Order Information Order Signing Physician: Connie Perez APRN * Service Ordered RN ?: No Service Ordered PT ?: Yes Service Ordered OT ?: Yes Service Ordered ST ?: No Service Ordered CUTTER INSPECTOR?:No Service Ordered DIGITAL AD TRAFFICKER?: No Following Physician: ALEXANDRA HAGEN Following Physician Overseeing Physician: ALEXANDRA HAGEN (Required for Residents only) Agreeable to Follow? No Date/Time of Call 06/20/23 2:40 PM, Spoke with: BRYAN FOR OFFICE-[facility]IR[facility] THIS IS HERPHYSICAN AND CAN SEE RECENT NOTES IN [facility] Care Coordination Same Day SOC?: No Primary Care Physician: ALEXANDRA HAGEN Primary Care Physician Primary Care Physician Address: [address] [place] [address] [address] / [facility] [address] Visit Instructions: N/A Service Discharge Location Type: Assisted Living Service Facility Name: [facility] Floor Facility: N/A Service Room No: 105 Demographics Patient Last Name: Lisa Patient First Name: Ezra Language/Communication Barrier: NONE Service Address: [address] [place] [address] Service City: [facility] ST: [place] Service ZIP: [address] Service (home) Other phone numbers: No relevant phone numbers on file. Emergency Contact: Extended Emergency Contact Information Primary Emergency Contact: Patito Cuba Mobile Relation: Son [employer] Specialist needed? No Secondary Emergency Contact: Ty Cuba Mobile Relation: Son Admission Information Admit Date: 06/16/2023 Patient status at discharge: Inpatient Admitting Diagnosis: Closed displaced fracture of medial condyle of right humerus, initial encounter [S46.368V] Caregiver Information Caregiver First Name: NA Caregiver Last Name: NA Caregiver Relationship to Patient NA Caregiver Phone Number: NA Caregiver Notes: N/A [facility]-Everywun List No END PATIENT REGISTRATION INFORMATION Pt [...] medications. Discharge Date: 06/20/23 Referral Source-PACC: (Hospital/Unit): [facility] / E7-707/E7-707 A End PACC Note * [...] pt order lunch. Notified TONIO, RN and speaking unit assembler. . * Care Coordination - Shikha Gray RN - 06/20/2023 11:01 AM EDT I SPOKE WITH DONOVAN, HEAVY MEDIA OPERATOR AT [facility]. THEY CAN TAKE PT BACK TODAY. THEY CAN PROVIDE TRANSPORTATION BACK TO FACILITY AROUND 3 PM. AWARE PT WILL NEED PT AT FACILITY, THEY USE [employer], DID LET HC LIAISON NOW. WENT TO [...] PM EDT Date: 06/16/2023 - 06/18/2023 Location: [facility] OR Name: Ezra Gonzalez, : 1935, Diagnosis Pre-op Diagnosis * Closed displaced fracture of medial condyle of right humerus, initial encounter [S42.461A] Post-op Diagnosis * Closed displaced fracture of medial condyle of right humerus, initial encounter [S42.461A] Procedures OPEN REDUCTION INTERNAL FIXATION RIGHT DISTAL HUMERUS [address] - [place] [employer] HUMERAL SHFT FX W/PLATE/SCREWS W/WOCERCLAGE Surgeons * Benitez Givens - Primary Procedure Summary Anesthesia: * No anesthesia type entered * ASA: III Estimated Blood Loss: Minimal Drains: * None in log * Staff: Bush Hog Operator: Vivian Herrera RN Scrub Person: Linda Alvarez [...] Limits Permission given to speak with patient access services representative/caregiver as indicated: No Confirmation of Payer with patient/family: Yes Payer Name: [facility] : No Confirmation of Primary Care [...] Assistance Provider Meal Prep Assistance Provider Name: GA STAFF Laundry/Cleaning: Assistance Provider Laundry/Cleaning Assistance Provider Name: GA STAFF Finances/Bill Paying: Independent Communication: Independent Types [...] rest and pain control documented in this [facility]SC[facility] HospitalJhzhoc65-78-8291 Note* Care Coordination - Unknown Case Management - 06/20/2023 2:58 PM EDT Patient Choice Patient Name: EZRA GONZALEZ Date of : 1935 All Providers Sent Referral Name: [facility] Phone: [phone] Address: [address] [place] [address] [facility] [id number] Note* Care Coordination - Unknown Case Management - 06/20/2023 2:58 PM EDT Patient Choice Patient Name: EZRA GONZALEZ Date of : 1935 All Providers Sent Referral Name: [facility] Phone: [phone] Address: [address] [place] [address] Trina AnnaAifgjt03-36-3840 Note* Home Care - Vivian Bills RN [...] is noted as yes - consider a CUTTER INSPECTOR evaluation once the patient returns home. START PATIENT REGISTRATION INFORMATION Order Information Order Signing Physician: Connie Perez APRN * Service Ordered RN ?: No Service Ordered PT ?: Yes Service Ordered OT ?: Yes Service Ordered ST ?: No Service Ordered CUTTER INSPECTOR?:No Service Ordered DIGITAL AD TRAFFICKER?: No Following Physician: ALEXANDRA HAGEN Following Physician Overseeing Physician: ALEXANDRA HAGEN (Required for Residents only) Agreeable to Follow? No Date/Time of Call 06/20/23 2:40 PM, Spoke with: BRYAN FOR OFFICE-CONFIRMED WITH [facility] THIS IS HERPHYSICAN AND CAN SEE RECENT NOTES IN [facility] Care Coordination Same Day SOC?: No Primary Care Physician: ALEXANDRA HAGEN Primary Care Physician Primary Care Physician Address: Bob Odom [address] [address] Visit Instructions: N/A Service Discharge Location Type: Assisted Living Service Facility Name: [place] Service Floor Facility: N/A Service Room No: 105 Demographics Patient Last Name: Lisa Patient First Name: Ezra Language/Communication Barrier: NONE Service Address: [address] [place] [address] [address] Service City: [facility] ST: [place] Service ZIP: [address] Service (home) Other phone numbers: No relevant phone numbers on file. Emergency Contact: Extended Emergency Contact Information Primary Emergency Contact: Patito Cuba Mobile Relation: Son [employer] Specialist needed? No Secondary Emergency Contact: Ty Cuba Mobile Relation: Son Admission Information Admit Date: 06/16/2023 Patient status at discharge: Inpatient Admitting Diagnosis: Closed displaced fracture of medial condyle of right humerus, initial encounter [S42.729C] Caregiver Information Caregiver First Name: NA Caregiver [...] medications. Discharge Date: 06/20/23 Referral Source-PACC: (Hospital/Unit): [facility] / E7-707/E7-707 A End PACC Note [facility] [id number] [facility]* Home Care - Vivian Bills RN - 06/20/2023 2:40 PM EDT Start PACC Note Home Health Referral Educated patient on Home Care and services available. Patient offered choice of available HHC and agreeable to PT/OT services with [facility] Home - Home Care. [...] is noted as yes - consider a CUTTER INSPECTOR evaluation once the patient returns home. START PATIENT REGISTRATION INFORMATION Order Information Order Signing Physician: Connie Perez APRN * Service Ordered RN ?: No Service Ordered PT ?: Yes Service Ordered OT ?: Yes Service Ordered ST ?: No Service Ordered CUTTER INSPECTOR?:No Service Ordered DIGITAL AD TRAFFICKER?: No Following Physician: ALEXANDRA HAGEN Following Physician Overseeing Physician: ALEXANDRA HAGEN (Required for Residents only) Agreeable to Follow? No Date/Time of Call 06/20/23 2:40 PM, Spoke with: BRYAN FOR OFFICE-CONFIRMED WITH JOSEP THIS IS HERPHYSICAN AND CAN SEE RECENT NOTES IN EPIC Care Coordination Same Day SOC?: No Primary Care Physician: ALEXANDRA HAGEN Primary Care Physician Primary Care Physician Address: [address] [place] [address] [address] / [facility] [address] Visit Instructions: N/A Service Discharge Location Type: Assisted Living Service Facility Name: [facility] Floor Facility: N/A Service Room No: 105 Demographics Patient Last Name: Lisa Patient First Name: Ezra Language/Communication Barrier: NONE Service Address: [address] [facility] [address] Service City: [facility] ST: [place] Service ZIP: [address] Service (home) Other phone numbers: No relevant phone numbers on file. Emergency Contact: Extended Emergency Contact Information Primary Emergency Contact: Patito Cuba Mobile Relation: Son [employer] Specialist needed? No Secondary Emergency Contact: Ty Cuba Mobile Relation: Son Admission Information Admit Date: 06/16/2023 Patient status at discharge: Inpatient Admitting Diagnosis: Closed displaced fracture of medial condyle of right humerus, initial encounter [S49.600F] Caregiver Information Caregiver First Name: NA Caregiver Last Name: NA Caregiver Relationship to Patient NA Caregiver Phone Number: NA Caregiver Notes: N/A [employer] List No END PATIENT REGISTRATION INFORMATION Pt [...] medications. Discharge Date: 06/20/23 Referral Source-PACC: (Hospital/Unit): [facility] / E7-707/E7-707 A End PACC Note [facility] CenterVlnxtb20-05-4589 NoteHospitalist Discharge Summary Ezra Gonzalez : 1935 [...] primary care provider Schedule (more content not included)...[facility]03-22-2024 Note* Care Coordination - SELINA Magaña [...] pt order lunch. Notified TONIO, RN and speaking unit assembler. . [facility]03-22-2024 Note* Care Coordination - SELINA Magaña [...] pt order lunch. Notified TCC, RN and speaking unit assembler. . [facility]03-22-2024 Note* Care Coordination - Shikha Gray RN - 06/20/2023 11:01 AM EDT I SPOKE WITH DONOVAN, HEAVY MEDIA OPERATOR AT [facility]. THEY CAN TAKE PT BACK TODAY. THEY CAN PROVIDE TRANSPORTATION BACK TO FACILITY AROUND 3 PM. AWARE PT WILL NEED PT AT FACILITY, THEY USE [facility], DID LET LIAISON NOW. WENT TO [...] SECURE CHAT WITH CONNIE PEREZ REGARDING THIS. [facility] CenterOrgijr12-22-3592 Note* Care Coordination - Shikha Gray RN - 06/20/2023 11:01 AM EDT I SPOKE WITH DONOVAN, HEAVY MEDIA OPERATOR AT [facility]. THEY CAN TAKE PT BACK TODAY. THEY CAN PROVIDE TRANSPORTATION BACK TO FACILITY AROUND 3 PM. AWARE PT WILL NEED PT AT FACILITY, THEY USE [facility] [employer], DID LET LIAISON NOW. WENT TO SPEAK [...] SECURE CHAT WITH CONNIE PEREZ REGARDING THIS. [facility] [id number] Hospital course Narrative* Connie Perez, JANNETTE - REPRODUCER - 06/20/2023 10:18 AM EDT Images from [...] as possible for a visit As needed [facility] Go to Appointment scheduled 06/26/23 at 10:[address] Givens. [address] [facility] Complexity of Follow up: [x] Moderate Complexity: follow up within 7-14 calendar days (85506) [] Severe Complexity: follow up within 7 calendar days (94220) Follow up Testing, Pending results or Referrals [...] time frame. Signed: Connie Perez APRN - [facility] Division [facility] Medicine [facility] 06/20/2023, 1:11 PM documented in this [facility]03-22-2024 [facility] Progress Note [...] off at this time. Please page resident still operator batch or continuous on Secure Chat with concerns or should [...] in all distributions -Motor function intact to AIN/PIN/UlnarZanesville City Hospital [facility] [id number] Note PHYSICAL THERAPY [facility] Initial Evaluation Name/MRN: Ezra Gonzalez ([id number]) Evaluation Date: 06/19/2023 Date of : 1935 Admission Date: 06/16/2023 1:38 PM Age: 87 y.o. Room[facility]Bed: [facility] A Discharge Recommendation: Home with Home health PT (return to [place]) Equipment Needed: No Assessment IMPRESSION: 87 y.o. pt admitted to [facility] for closed fracture RUE, s/p ORIF R humerus 06/17. They were Min A for bed mobility, Min A for transfers, and Min A for ambulation. Pt limited d/t balance. If from [place] where she can receive Min A for all ADLs and mobility. Would recommend return to [place] and [facility] PT at discharge. Diagnosis: closed fracture RUE, [...] correction Ambulation Ambulation 1 Assistive device(s) used: DIGITAL AD TRAFFICKER Assist level: Min Assist Distance (ft): 15' [...] eval, 1 FA) Dillon (more content not included)...[facility]03-21-2024 Note* Care Coordination - Shikha Gray RN - 06/19/2023 2:05 PM EDT DAY #1 S/P ORIF OF RIGHT ARM. WAITING FOR PT/OT EVALS FOR DC PLANNING. [facility] [id number] Note* Care Coordination - Shikha Gray RN - 06/19/2023 2:05 PM EDT DAY #1 S/P ORIF OF RIGHT ARM. WAITING FOR PT/OT EVALS FOR DC PLANNING. [facility] CenterQvttos36-51-5344 NoteOCCUPATIONAL THERAPY [facility] Initial Evaluation Name/MRN: Ezra Gonzalez ([id number]) Evaluation Date: 06/19/2023 Date of : 1935 [...] 06/19/23 Expected End: 07/17/23 (more content not included)...[facility] [id number] Note Hospitalist Progress Note 06/19/2023 Subjective: Admit Date: 06/16/2023 PCP: No primary care provider on file. Room#: I9-747/S2-551 A BRIEF HOSPITAL COURSE: Ezra is a [...] Full Code Anticipated Dischar (more content not included)...[facility]-19-2023 [facility] Progress Note [...] Procedure Summary Date: 06/18/23 Room / Location: [address] Operating Room Anesthesia Start: 1541 Anesthesia [...] discharged once all PACU criteria has been met.[facility]03-20-2024 NotePatient: Ezra Gonzalez Procedure Summary Date: 06/18/23 Room / Location: [address] Operating Room Anesthesia Start: 1541 Anesthesia [...] Allowed opportunity for questions and acknowledgement of understanding.[facility]03-20-2024 Note* Perioperative Nursing Note - Irina Khan RN - 06/18/2023 8:11 PM EDT Pt states no need to contact family. RN on floor states she will call pt's son,. [facility] CenterCbrjgs05-55-6491 Note* Perioperative Nursing Note - Irina Khan RN - 06/18/2023 8:11 PM EDT Pt states no need to contact family. RN on floor states she will call pt's son,. [facility] CenterPhzpcp78-66-0787 NoteAirway Date/Time: 06/18/2023 3:56 PM Urgency: scheduled General Information and Staff Patient location during procedure: Procedural Resident/HUMAN RESOURCES TEAM MEMBER: Sae Lora CRNA Performed: HUMAN RESOURCES TEAM MEMBER Indications and Patient Condition Indications for airway [...] (cm): 21 Number of attempts at approach: [address] [place], [place] 6136403-20-2024 Note Peripheral IV Date/Time: 06/18/2023 4:00 PM Inserted by: Deisy Patel APRN - HUMAN RESOURCES TEAM MEMBER Placement Needle size: 20 G Laterality: left Location: upper arm. Local anesthetic: none Site prep: alcohol Technique: ultrasound guided Attempts: [address] [place], [place] 6136[address]-20-2024 NotePeripheral Block Time Out: 06/18/2023 3:28 PM Patient location during procedure: Procedural Start time: 06/18/2023 3:28 PM End time: 06/18/2023 3:32 PM Reason for block: at surgeon's request and post-op pain management Staffing Performed: HUMAN RESOURCES TEAM MEMBER Resident/HUMAN RESOURCES TEAM MEMBER: Deisy Patel APRN - WAQAS Preanesthetic Checklist [...] No paresthesias reported by patient during injectionMedications hfzUORHFscgsf-kqzdlrcnbtf-omslldrtopx (TAP) syringe - Injection 30 mL - 06/18/2023 3:28:00 [facility] [id number] NotePatient: Ezra Gonzalez Procedure Information Date/Time: 06/18/23 1530 Procedure: OPEN REDUCTION INTERNAL FIXATION RIGHT DISTAL HUMERUS (Right: Arm Upper) - requesting 330, if can't go at 330 will consider friday Location: [facility] OR [address] [place] [address] Operating Room Surgeons: Benitez Givens MD Relevant [...] by: Thong Francois DO on 06/17/2023 6:39 [facility] 06-18-2023 Hospital Discharge instructions* Discharge Instructions* Evette [...] Emergency Contact: Patito Cuba Mobile Relation: Son [employer] Specialist needed? No Secondary Emergency Contact: Ty Cuba [...] (78.9 kg) Mental Status: {MITCHEL Patient Mental Status:42800} IV Access: {MITCHEL IV Access:38469} Nursing Mobility/ADLs: Walking {MALLY ADL:69494::Independent} Transfer {MALLY ADL:93285::Independent} Bathing {MALLY ADL:25722::Independent} Dressing {MALLY ADL:69984::Independent} Toileting {MALLY ADL:25070::Independent} Feeding {MALLY ADL:78279::Independent} Enterprise Sales Person {MALLY ADL:21941::Independent} Med Delivery {yes/no:13939} Wound Care Documentation and Therapy: Wound/Incision 06/18/23 Incision Arm Anterior;Right;Upper (Active) Site Assessment Clean;Dry 06/19/232147 Treatments Sling 06/19/232147 Primary Dressing Xeroform 06/19/23 1024 Dressing Status Clean, dry & intact 06/19/232147 Number of days: 1 Elimination: Continence: Bowel: {yes/no:20732} Bladder: {yes/no:66650} Urinary Catheter: {MITCHEL Urinary Catheter:96122} Colostomy/Ileostomy/Ileal Conduit: {YES / NO:} Date of Last BM: No intake or output data in the 24 hours ending 06/20/23 1025 I/O last 3 completed shifts: In: 711 (9 mL/kg) [P.O.:280; I.V.:114 (1.4 mL/kg); IV Piggyback:317] Out: 600 (7.6 mL/kg) [Urine:350 (0.1 mL/kg/hr); Blood:250] Weight: 78.9 kg Safety Concerns: {MITCHEL Safety Concerns:50640} Impairments/Disabilities: {MITCHEL Impairments/Disabilities:82883} Nutrition Therapy: Current Nutrition Therapy: {MITCHEL Diet List:63738} Routes of Feeding: {routes of feedin} Liquids: {liquid consistency:26067} Daily Fluid Restriction: {daily fluid restriction:28372} Last Modified Barium Swallow with Video (Video Swallowing Test): {done not done:85374} Treatments at the Time of Hospital Discharge: Respiratory Treatments: Oxygen Therapy: {Therapy; copd oxygen:03148} Ventilator: {MITCHEL Ventilator:80496} Rehab Therapies: {GEN THERAPY DISCIPLINE SCAL:6405454} Weight Bearing Status/Restrictions: {POD WEIGHT BEARIN} Other Medical Equipment (for information only, NOT a DME order): {Assistive Devices DME:40835} Other Treatments: Patient's personal belongings (please select all that are sent with patient): {MITCHEL Patient Belongings:91954} RN SIGNATURE: {E-signature:21978} CASE MANAGEMENT/SOCIAL WORK SECTION Inpatient Status Date: 06/16/23 Readmission Risk Assessment Score: @READMISSIONRISKDETAILS@ Discharging to Facility/ Agency Discharging to Facility/ Agency Name: [facility] Address: [address] [place] [address] [facility] [place] Address:[address] [place] [address] ~28.4 mi Fax: Dialysis Facility (if applicable) Name: Address: Dialysis Schedule: Phone: Fax: Dermatology Nurse/Cane Flume Watcher signature: ICIAN SECTION Prognosis: good Condition at [...] in H&P PHYSICIAN SIGNATURE: documented in this [facility]03-20-2024 Note* Brief Op Note - Lexa Aparicio MD - 06/18/2023 3:42 PM EDT Date: 06/16/2023 - 06/18/2023 Location: [facility] OR Name: Ezra Gonzalez, : 1935, Diagnosis Pre-op Diagnosis * Closed displaced fracture of medial condyle of right humerus, initial encounter [S42.461A] Post-op Diagnosis * Closed displaced fracture of medial condyle of right humerus, initial encounter [S42.461A] Procedures OPEN REDUCTION INTERNAL FIXATION RIGHT DISTAL HUMERUS 60383 - [place] OPTX HUMERAL SHFT FX W/PLATE/SCREWS W/WOCERCLAGE Surgeons * Benitez Givens - Primary Procedure Summary Anesthesia: * No anesthesia type entered * ASA: III Estimated Blood Loss: Minimal Drains: * None in log * Staff: Bush Hog Operator: Vivian Herrera RN Scrub Person: Linda Alvarez [...] Givens in 2 weeks -Ortho to follow. [employer] Phone: 1(967) 864-911403-20-2024 Note* Brief Op Note - Lexa Aparicio MD - 06/18/2023 3:42 PM EDT Date: 06/16/2023 - 06/18/2023 Location: [facility] OR Name: Ezra Gonzalez, : 1935, Diagnosis Pre-op Diagnosis * Closed displaced fracture of medial condyle of right humerus, initial encounter [S42.461A] Post-op Diagnosis * Closed displaced fracture of medial condyle of right humerus, initial encounter [S42.461A] Procedures OPEN REDUCTION INTERNAL FIXATION RIGHT DISTAL HUMERUS 53753 - [place] OPTX HUMERAL SHFT FX W/PLATE/SCREWS W/WOCERCLAGE Surgeons * Benitez Givens - Primary Procedure Summary Anesthesia: * No anesthesia type entered * ASA: III Estimated Blood Loss: Minimal Drains: * None in log * Staff: Bush Hog Operator: Vivian Herrera RN Scrub Person: Linda Alvarez [...] Givens in 2 weeks -Ortho to follow. [employer] Phone: 1(681) 162-801403-20-2024 Note* Perioperative Nursing Note - Deisy Gonzalez RN - 06/18/2023 3:29 PM EDT Patients wallet and watch locked up with security. OR notified patient states she has latex allergy Patients purse and glasses taken to pacu thesweetlinkVlcfkb88-79-0848 Note* Perioperative Nursing Note - Deisy Gonzalez RN - 06/18/2023 3:29 PM EDT Patients wallet and watch locked up with security. OR notified patient states she has latex allergy Patients purse and glasses taken to pacu [facility] ManagementKgnwer15-64-2726 Note* Care Coordination - Shikha Gray RN - 06/18/2023 1:03 PM EDT Care Managment Initial Assessment Date: 06/18/2023 Patient Name: Ezra Gonzalez : 1935 Patient Information Source of Information: Patient Cognition/Language: WFL - Within Functional Limits Permission given to speak with patient access services representative/caregiver as indicated: No Confirmation of Payer with patient/family: Yes Payer Name: [facility] Dukedom: No Confirmation of Primary Care Physician: Confirmed [...] WILL CONTINUE TO FOLLOW. Shikha Gray RN [facility] CenterJnjkrz62-54-7949 Note* Care Coordination - Shikha Gray RN - 06/18/2023 1:03 PM EDT Care Managment Initial Assessment Date: 06/18/2023 Patient Name: Ezra Gonzalez : 1935 Patient Information Source of Information: Patient Cognition/Language: WFL - Within Functional Limits Permission given to speak with patient access services representative/caregiver as indicated: No Confirmation of Payer with patient/family: Yes Payer Name: [facility] : No Confirmation of Primary Care [...] WILL CONTINUE TO FOLLOW. Shikha Gray RN [facility] CenterLgtvzu65-60-1191 NoteHospitalist Progress Note 06/18/2023 Subjective: Admit Date: 06/16/2023 PCP: No primary care provider on file. Room#: E7707/J3-097 A BRIEF HOSPITAL COURSE: Ezra is a [...] Emergency Contact: Patito Cuba Mobile Relation: Son [employer] Specialist needed? No Se (more content not included)...[facility]03-20-2024 Note Department of Orthopedic Surgery Progress [...] radial/median/ulnar/axillary nerve distributions -Motor + AIN/PIN/ulnar nerve functionsFormerly [facility]03-19-2024 Plan of care note* Care Plan - Yvan Sepulveda RN - 06/17/2023 11:35 PM EDT The patient is Moderately Stable - Low risk of patient condition declining or worsening The patient's goals for the shift include rest and pain control The clinical goals for the shift include rest and pain control [facility] CenterTkpldx71-69-5982 Nurse Note* Yvan Sepulveda RN - 06/17/2023 9:22 PM EDT Patient home medication list updated, provider made aware. [facility] CenterPghnsq13-24-2821 Nurse Note* Yvan Sepulveda RN - 06/17/2023 9:22 PM EDT Patient home medication list updated, provider made aware. documented in this [facility]03-19-2024 Emergency department Note* Di Reyna RN - 06/17/2023 11:52 AM EDT Patient resting in bed at this time, equal unlabored respirations noted and no acute distress, callbell within reach Di Reyna RN 06/17/[address] [facility] CenterTiynxt95-56-3758 Emergency department Note* Di Reyna RN - [...] Injury Pt arrives [facility] from [facility] with complaints of [...] injury anywhere else. Patient was evaluated at [facility] emergency department prior to arrival and was noted to have a distal humerus fracture. Patient was transferred to [facility] ED for orthopedic consultation. Patient [...] Culture. Procedure Abnormality Status --------- ------ Complete Urinalysis[[id number]] Please view results for these tests on [...] 0.5 mg (0.5 mg IntraVENous Given 06/16/23 6728) ED care was supervised by Dr. Conde who independently examined and evaluated the patient. Please see their attestation note for further details. In brief, Ezra Gonzalez is a 87 y.o. female who presented to the emergency department for evaluation of a right arm injury. Patient was seen at [facility] prior to arrival was noted to have a distal humerus fracture. Patient transferred to [facility] ED for orthopedic consultation. Nursing [...] screen, x-ray right elbow. CT head from [place] ED -shows no signs of acute cranial abnormalities. CXR from [place] ED prior to arrival -blunting of bilateral [...] 06/16/2023 12:38 PM EDT Emergency Department Encounter [facility] EMERGENCY DEPT Patient: Ezra Gonzalez [...] Conde MD 06/16/23 1626 documented in this [facility]03-19-2024 Emergency department Note* Alia Foster RN - 06/17/2023 10:00 AM EDT Pt O2 desaturating to mid 80s after receiving dilaudid IV. Pt placed on 2L NC and immediately back up to 95%. notified Alia Foster RN 06/17/[address] [facility] CenterVqwsft27-72-2660 NoteHospitalist Progress Note 06/17/2023 Subjective: Admit Date: [...] does not feel safe going back to [place] at this time. Since patient staying ortho [...] Emergency Contact: Patito Cuba Mobile Relation: Son [employer] Specialist needed? No Secondary Emergency Contact: Ty Cuba Mobile Relation: Son Connie PerezJANNETTE - REPRODUCER Division of Hospitalist Medicine [facility]03-19-2024 NoteDepartment of Orthopedic Surgery Progress Note ASSESSMENT [...] ulnar nerve distributions -Motor + AIN/PIN/ulnar nerve functionsFormerly [facility]03-18-2024 Emergency department Note* Juanjo Pringle RN [...] US IV line. Juanjo Pringle RN 06/16/[address] [facility] CenterNcrqdl33-44-2798 NoteAttending History and Physical Admit Date: 06/16/2023 [...] does not feel safe going back to [place] at this time. Since patient staying ortho [...] Pain control am labs, (more content not included)...[facility] [id number] History and physical note* Jayshree Cortez MD [...] Emergency Contact: Patito Cuba Mobile Relation: Son [employer] Specialist needed? No Secondary Emergency Contact: Ty Cuba Mobile Relation: Son Jayshree Cortez MD Division of Hospitalist Medicine [facility] [employer] Phone: 1(605) 919-163403-18-2024 History and physical note* Jayshree Cortez MD [...] does not feel safe going back to [place] at this time. Since patient staying ortho [...] Emergency Contact: Patito Cuba Mobile Relation: Son [employer] Specialist needed? No Secondary Emergency Contact: BereketTy Mobile Relation: Son Jayshree Cortez MD Division of Hospitalist Medicine [facility] documented in this [facility]03-18-2024 Physician Emergency department Note* NADIA Ruiz - 06/16/2023 12:38 PM EDT Images from the original note were not included. EMERGENCY DEPARTMENT ENCOUNTER Pt Name: Ezra Gonzalez Birthdate 1935 Date of evaluation: 06/16/2023 ED Provider: NADIA Ruiz CHIEF COMPLAINT Chief Complaint Patient presents with Arm Injury Pt arrives via [facility] from [facility] with complaints of [...] injury anywhere else. Patient was evaluated at [facility] emergency department prior to arrival and was noted to have a distal humerus fracture. Patient was transferred to [facility] ED for orthopedic consultation. Patient [...] Culture. Procedure Abnormality Status --------- ------ Complete Urinalysis[[id number]] Please view results for these tests on [...] right arm injury. Patient was seen at [facility] prior to arrival was noted to have a distal humerus fracture. Patient transferred to [facility] ED for orthopedic consultation. Nursing [...] screen, x-ray right elbow. CT head from [place] ED -shows no signs of acute cranial abnormalities. CXR from [place] ED prior to arrival -blunting of bilateral [...] Emergency Medicine Provider NADIA Ruiz 06/16/[address] [facility] CenterAhhifo22-27-9626 Physician Emergency department Note* Sae Conde MD - 06/16/2023 12:38 PM EDT Emergency Department Encounter [facility] EMERGENCY DEPT Patient: Ezra Gonzalez [...] [employer] Sae Conde MD 06/16/23 1626 [employer] Phone: 1(188) 706-861709-30-2023 Discharge summary Author [facility] December 27, 2022 10:31pm Note Date/Time December 27, 2022 3:52pm [facility] Medical Records Department [address] [place] [address] Emergency Department Summary 12/27/22 MR#: [id number] Acct: [id number] Name: EZRA GONZALEZ Rep #:[id number] : 1935 87 From: Lali Pimentel MD PCP: Dr. Rosemary Doran MD Status:ADM MARIELOS Location: [place] [address] HPI History of Present Illness Chief Complaint: [...] [place] Medical History Atherosclerotic heart disease of [place] coronary artery without angina pectoris Chronic diastolic [...] % (Auto) 57.4 Lymph % (Auto) 27.9 [place] % (Auto) 10.8 H Eos % (Auto) [...] troponin is normal at 10. Neurology from [facility] felt that the patient should be [...] Provider] - Disposition Disposition: Acute Care Hospital [facility] What to do if you have Problems For any increased pain, shortness of breath, bleeding, nausea or vomiting, chestpain, or any unexpected problems, contact your Primary Care Provider. Call [facility] ([phone]) or report to the closest Emergency Room. Call 911 if necessary. 12/27/222230 <Electronically signed by Lali Pimentel MD> Cosigner Signature (if applicable): CC: Dr. Rosemary Doran MD ~ Signed [facility] Work Phone: 1(264) 310-242409-29-2023 History and physical note Author Lynn Horn [facility] December 27, 2022 6:54pm Note Date/Time December 27, 2022 5:12pm [facility] Medical Records Department [address] [facility] [place] [address] H&P Exam - Hospitalist 12/27/22 1709 MR#: [id number] Acct: [id number] Name: EZRA GONZALEZ Rep #:[id number] : 1935 87 From: Lynn Horn DO PCP: Dr. Rosemary Doran MD Status:ADM MARIELOS Location: [place] [address] HPI - General General Date of Admission: 12/27/22 Date of Service: 12/27/22 Chief Complaint: Speech abnormalities HPI Narrative EZRA GONZAELZ, is a 87 F who presented to the emergency department at [facility] on 12/27/2022 with speech abnormalities that started after 1 PM this afternoon. She resides at [facility]. She was last known well at 1 [...] will add aspirin 81 mg as well [facility] Medical History Atherosclerotic heart disease of [place] coronary artery without angina pectoris Chronic diastolic [...] % (Auto) 57.4, Lymph % (Auto) 27.9, [place] % (Auto) 10.8 H, Eos % (Auto) [...] on admission Charges/Coding Visit Charges Inpatient E&M: 82292 Init Hosp L2 12/27/22 2186 <Electronically signed by Lynn Horn DO> Cosigner Signature (if applicable): CC: Dr. Rosemary Doran MD; Dr. Lynn Horn DO~ Signed [facility] Work Phone: 1(165) 315-632209-14-2023 Discharge summary Author María Crane [facility] December 12, 2022 1:40pm Note Date/Time December 12, 2022 1:40pm [facility] Physical Therapy [facility] [address] [place] [address] [address] [place] [address] / REHABILITATION SERVICES DISCHARGE SUMMARY MR#: [id number] Acct: [id number] Name: EZRA GONZALEZ Rep #: [id number] : 1935 87 From: María Cooley Referring Dr.: Dr. Anant Juarez MD Status: REG R Insurance: [facility] [id number] SELF PAY INSURANCE Patient Information Patient Information: [...] Dr. Anant Juarez MD ~ ELR Signed [facility] Work Phone: 1(573) 137-151511-17-2007 Evaluation note* Diagnosis Onset Date Resolution Status Chronic diastolic (congestive) heart failure chronic Essential (primary) hypertension chronic Paroxysmal atrial fibrillation chronic History of coronary artery stent placement February 142006 resolved [facility] Work Phone: 1(852) 632-419711-17-2007 Evaluation note* Diagnosis Onset Date Resolution Status Chronic diastolic (congestive) heart failure chronic Essential (primary) hypertension chronic History of coronary artery stent placement February 142006 resolved Brain TIA resolved Carotid stenosis acute Difficulty with speech acute Dysarthria resolved Polyneuropathy acute [facility] Work Phone: 1(400) 113-294811-17-2007 Evaluation note* Diagnosis Onset Date Resolution Status Chronic diastolic (congestive) heart failure chronic Essential (primary) hypertension chronic History of coronary artery stent placement February 142006 resolved Brain TIA resolved Carotid stenosis acute Difficulty with speech acute Dysarthria resolved Abnormality of gait and mobility acute Carotid stenosis acute Dementia acute Polyneuropathy acute Transient ischemic attack re solved [facility] Work Phone: 1(177) 902-549111-17-2007 Evaluation note* Diagnosis Onset Date Resolution Status Longstanding persistent atrial fibrillation acute Essential (primary) hypertension chronic History of coronary artery stent placement February 142006 resolved Dementia acute Epilepsy acute Polyneuropathy acute Transient ischemic attack re solved [facility] Work Phone: Consult note Author Chucky Carney [facility] June 16, 2023 10:15am Note Date/Time June 16, 2023 10: 14am [facility] Medical Records Department [address] [place] [address] Consultation - Orthopedics 06/16/23 1012 MR#: [id number] Acct: [id number] Name: EZRA GONZALEZ Rep #:[id number] : 1935 87 From: Chucky Carney MD PCP: Dr. Rosemary Doran MD Status:REG ER Location: ED HPI Consult Data Date of Consult: 06/16/23 HPI Narrative HPI Narrative: EZRA GONZALEZ, is a 87 F who presents with a right distal humerus fracture. [facility] a [facility]. According to the ED physician Dr. Mack who called me today this is a closed neurovascularly intact injury. [facility] Medical History (Updated 06/16/23 @ 10:13 by Chucky Carney MD) Atherosclerotic heart disease of [place] coronary artery without angina pectoris Chronic diastolic [...] % (Auto) 67.8, Lymph % (Auto) 23.0, [place]% (Auto) 7.0, Eos % (Auto) 1.3, Baso [...] applicable): CC: Dr. Rosemary Doran MD~ Signed [facility] Work Phone: Discharge summary Author Neri Mitchell [facility] November 14, 2022 11:57am Note Date/Time November 14, 2022 11 :10am [facility] Medical Records Department [address] [place] [address] Emergency Department Summary 11/14/22 MR#: [id number] Acct: [id number] Name: EZRA GONZALEZ Rep #:[id number] : 1935 87 From: Neri Mitchell MD [...] [place] Medical History Atherosclerotic heart disease of [place] coronary artery without angina pectoris Chronic diastolic [...] % (Auto) 64.0 Lymph % (Auto) 24.9 [place] % (Auto) 7.8 Eos % (Auto) 2.4 [...] No evidence for large vessel occlusion the [place]. N.B. : The above Results were Read Back by Ban Avila MD to Neri Mitchell MD, and understanding confirmed on 11/14/2022 11:41:26 (ET). Electronically Signed: Ban Avila MD at 11:41 EDT , ADDENDUM: 11/14/22 1148 IMPRESSION: No evidence for significant stenosis or occlusion in the carotid or vertebral arteries of the neck. No evidence for large vessel occlusion the [place]. N.B. : The above [...] Fibrillation Management Discussion w/another healthcare provider: Hospitalist, Crop Supervisor (Stroke neurology Dr. Tamez) and Radiologist (At 1121 for NCCT, negative for bleed) Stroke Documentation Questions Stroke Team Activated: Yes Critical Care Time Critical Care Time: Yes Critical care time (excluding procedures): 30-74 minutes (37 min), Including time spent:, Discussing w/Patient &/or Family/Negotiations Director, Discussing w/Consultants, Arranging Admission or Transfer and Performing Direct Patient Care at Bedside Discharge Plan Dx/Rx/DC Orders Clinical Impression: Brain TIA, Paroxysmal atrial fibrillation, Subtherapeutic international normalized ratio (INR) Disposition Disposition: Acute Care Hospital [facility] What to do if you have Problems For any increased pain, shortness of breath, bleeding, nausea or vomiting, chestpain, or any unexpected problems, contact your Primary Care Provider. Call [email or web address] [facility] ([phone]) or report to the closest Emergency Room. Call 911 if necessary. 11/14/22 1157 <Electronically signed by Neri Mitchell MD> Cosigner Signature (if applicable): CC: Dr. Rosemary Doran MD ~ Signed [facility] Work Phone: Discharge summary Author Sae Carballo [facility] December 28, 2022 11:09am Note Date/Time December 28, 2022 11:08am [facility] Medical Records Department [address] [place] [address] Instructions for Home/Discharge Instructions 12/28/22 1107 MR#: [id number] Acct: [id number] Name: EZRA GONZALEZ Rep #:[id number] : 1935 87 From: Sae fleming MD [...] MD; Dr. Lynn Horn DO ~ Signed [facility] Work Phone: evaluation note* Diagnosis Onset Date Resolution Status Atherosclerotic heart diseas e of [place] coronary artery without angina pectoris chronic Chronic diastolic (congestive) heart failure chronic Essential (primary) hypertension chronic Hyperlipidemia chronic Paroxysmal atrial fibrillation [facility] Work Phone: evaluation note* Diagnosis Onset Date Resolution Status Abnormality of gait and mobility acute Carotid stenosis acute Dementia acute Polyneuropathy acute Transient ischemic attack re solved [facility] Work Phone: Evaluation note* Diagnosis Onset Date Resolution Status Abnormality of gait and mobility acute Carotid stenosis acute Dementia acute Polyneuropathy acute Transient ischemic attack re solved Chronic diastolic (congestive) heart failure chronic Essential (primary) hypertension chronic Paroxysmal atrial fibrillation chronic History of coronary artery stent placement February 142006 resolved [facility] Work Phone: Evaluation note* Diagnosis Onset Date Resolution Status Abnormality of gait and mobility acute Carotid stenosis acute Dementia acute Polyneuropathy acute Transient ischemic attack re solved Chronic diastolic (congestive) heart failure chronic Essential (primary) hypertension chronic Paroxysmal atrial fibrillation chronic History of coronary artery stent placement February 142006 resolved Brain TIA acute Subtherapeutic international normalized ratio (INR) acute Paroxysmal atrial fibrillation [facility] Work Phone: evaluation note* Diagnosis Onset Date Resolution Status Abnormality of gait and mobility acute Carotid stenosis acute Dementia acute Polyneuropathy acute Transient ischemic attack re solved Chronic diastolic (congestive) heart failure chronic Essential (primary) hypertension chronic History of coronary artery stent placement February 142006 resolved Brain TIA resolved Carotid stenosis acute [facility] Work Phone: Evaluation note* Diagnosis Onset Date Resolution Status Abnormality of gait and mobility acute Carotid stenosis acute Dementia acute Polyneuropathy acute Transient ischemic attack re solved Chronic diastolic (congestive) heart failure chronic Essential (primary) hypertension chronic History of coronary artery stent placement February 142006 resolved Brain TIA resolved Carotid stenosis acute Difficulty with speech acute Dysarthria acute [facility] Work Phone: Evaluation note* Diagnosis Onset Date Resolution Status Brain TIA resolved Carotid stenosis acute Difficulty with speech acute Dysarthria resolved Abnormality of gait and mobility acute Carotid stenosis acute Dementia acute Polyneuropathy acute Transient ischemic attack re solved [facility] Work Phone: Evaluation note* Diagnosis Onset Date Resolution Status Dementia acute Epilepsy acute Polyneuropathy acute Transient ischemic attack re solved [facility] Work Phone: Evaluation note* Diagnosis Onset Date Resolution Status Dementia acute Epilepsy acute Polyneuropathy acute Transient ischemic attack re solved Longstanding persistent atrial fibrillation acute Essential (primary) hypertension chronic History of coronary artery stent placement February 142006 resolved Dementia acute Epilepsy acute Polyneuropathy acute Transient ischemic attack re solved [facility] Work Phone: Evaluation note* Diagnosis Closed displaced fracture of medial condyle of right humerus, initial encounter- Primary Closed displaced fracture of medial condyle of right humerus, initial encounter documented in this encounter [facility] Discharge instructions Additional Instructions Your work-up today does not show signs of heart attack or heart damage. Your Coumadin level/INR is therapeutic at 2.7. Please follow-up with your family doctor for repeat evaluation or return to the ER if you have any [facility] Work Phone: Hospital Discharge instructionsAmbulatory Orders* Physical Therapy Referral Location: None Selected [facility] Work Phone: Hospital Discharge instructions Additional Instructions Will need to follow-up Lamictal level since it is a send out. Recommend follow- up appointment with her neurologist Dr. [facility] Work Phone: Reason for referral (narrative)No reason for referral information availableWCleveland Clinic Work Phone: Summary Purpose Family History No Family History Records Found Relationship Condition Age at Onset Recorded Date/T maggy father Coronary artery disease Unknown brother Coronary artery disease Unknown Advance Directives No Advanced Directives Records Found Advance Directive Response Recorded Date/ Time Advance Directives Yes November 10:13am Living Will No February 11 12:11am Power of Hose Finisher No February 11, 2022 12:11am Advance Directive Response Recorded Date/ Time Advance Directives Yes November 11:13am Living Will No February 11 1:11am Power of Hose Finisher No February 11, 2022 1:11am Advance Directive Response Recorded Date/ Time Advance Directives Yes November 11:13am Living Will No September 08, 2022 3:33pm Power of Hose Finisher No September 08 3:33pm Advance Directive Response Recorded Date/ Time Advance Directives Yes November 11:13am Living Will No November 14 11:07am Power of Hose Finisher No November 14 023 11:07am Advance Directive Response Recorded Date/ Time Name of Medical Power of Hose Finisher Ty Campoverdei wendy November 18, 2022 7:55am Advance Directives Yes November 11:13am Living Will Yes November 18 7:55am Power of Hose Finisher Yes November 18, 023 7:55am Name of Medical Power of Hose Finisher Wilfredo [place] November 14, 2022 1:26pm Advance Directive Response Recorded Date/ Time Name of Medical Power of Hose Finisher Ty Campoverdei l November 18, 2022 7:55am Name of Medical Power of Hose Finisher Wilfredo Nemastil November 14, 2022 1:26pm Advance Directives Yes November 11:13am Living Will No December 27, 2022 7:16pm Power of Hose Finisher No November 7:16pm Advance Directive Response Recorded Date/ Time Name of Medical Power of Hose Finisher Ty Campoverdei l November 18, 2022 6:55am Name of Medical Power of Hose Finisher Wilfredo Nemastil November 14, 2022 12:26pm Advance Directives Yes November 10:13am Living Will No December 27, 2022 6:16pm Power of Hose Finisher No November 6:16pm Advance Directive Response Recorded Date/ Time Advance Directives Yes November 10:13am Living Will No December 27, 2022 6:16pm Power of Hose Finisher No November 6:16pm Advance Directive Response Recorded Date/ Time Name of Medical Power of Hose Finisher SON--JACK June 16, 2023 8:32am Advance Directives Yes November 11:13am Living Will Yes June 16, 2023 8:32am Power of Hose Finisher Yes June 15 8:32am Latest Code Status on File Code Status Date Activated Date Inactivated Comments Full Code 06/16/2023 4:39 PM 06/20/2023 7:46 PM Advance Directive Response Recorded Date/ Time Living Will Yes June 16, 2023 7:32am Power of Hose Finisher Yes June 15 7:32am Advance Directives Yes November 10:13am Advance Directive Response Recorded Date/ Time Living Will Yes June 16, 2023 8:32am Do you have a Healthcare Power of Hose Finisher? Yes June 16, 2023 8:32am Advance Directives Yes November 11:13am Advance Directive Response Recorded Date/ Time Living Will No December 27, 2022 7:16pm Do you have a Healthcare Power of Hose Finisher? No December 27, 2022 7:16pm Living Will Yes June 16, 2023 8:32am Do you have a Healthcare Power of Hose Finisher? Yes June 16, 2023 8:32am Advance Directives Yes November 11:13am Advance Directive Response Recorded Date/ Time Living Will No December 27, 2022 7:16pm Do you have a Healthcare Power of Hose Finisher? No December 27, 2022 7:16pm Do you have a Healthcare Power of Hose Finisher? Yes September 08, 2024 12:26pm Advance Directives Yes November 11:13am Advance Directive Response Recorded Date/ Time Living Will No December 27, 2022 7:16pm Do you have a Healthcare Power of Hose Finisher? No December 27, 2022 7:16pm Do you have a Healthcare Power of Hose Finisher? Yes September 10, 2024 5:17pm Do you have a Healthcare Power of Hose Finisher? 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 EORDER FOR LABS FROM DR JUAREZ Consult LEFT ICA STENOSIS Reason for Visit Abnormality of gait and mobility Carotid stenosis Dementia Polyneuropathy Transient ischemic attack Chief Complaint TIA SYMPTOMS, HX OF DM, 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 EORDER FOR LABS FROM DR JUAREZ Consult LEFT ICA STENOSIS 6 M FU W DIRECTOR OF TRAUMA per DIRECTOR OF TRAUMA GAIT,POLYNEUROPATHY,LUMBAR COMPRESSION FX/RX HERE GAIT DISORDER Reason for Visit Abnormality of gait and mobility Carotid stenosis Dementia Polyneuropathy Transient ischemic attack Chronic diastolic (congestive) heart failure Essential (primary) hypertension Paroxysmal atrial fibrillation History of coronary artery stent placement Chief Complaint TIA SYMPTOMS, HX OF DM, AFIB confusion [facility] (current) use 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 EORDER FOR LABS FROM DR JUAREZ Consult LEFT ICA STENOSIS 6 M FU W DIRECTOR OF TRAUMA per DIRECTOR OF TRAUMA GAIT,POLYNEUROPATHY,LUMBAR COMPRESSION FX/RX HERE GAIT DISORDER TIA Reason for Visit Abnormality of gait and mobility Carotid stenosis Dementia Polyneuropathy Transient ischemic attack Chronic diastolic (congestive) heart failure Essential (primary) hypertension Paroxysmal atrial fibrillation History of coronary artery stent placement Brain TIA Subtherapeutic international normalized ratio (INR) Paroxysmal atrial fibrillation Chief Complaint TIA SYMPTOMS, HX OF DM, AFIB confusion [facility] (current) use 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 EORDER FOR LABS FROM DR JUAREZ Consult LEFT ICA STENOSIS 6 M FU W DIRECTOR OF TRAUMA per DIRECTOR OF TRAUMA GAIT,POLYNEUROPATHY,LUMBAR COMPRESSION FX/RX HERE GAIT DISORDER TIA TIA (cardiology) TIA (cardiology) tia Reason for Visit Abnormality of gait and mobility Carotid stenosis Dementia Polyneuropathy Transient ischemic attack Chronic diastolic (congestive) heart failure Essential (primary) hypertension Paroxysmal atrial fibrillation History of coronary artery stent placement Brain TIA Subtherapeutic international normalized ratio (INR) Paroxysmal atrial fibrillation Chief Complaint TIA SYMPTOMS, HX OF DM, 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 EORDER FOR LABS FROM DR JUAREZ Consult LEFT ICA STENOSIS 6 M FU W DIRECTOR OF TRAUMA per DIRECTOR OF TRAUMA GAIT,POLYNEUROPATHY,LUMBAR COMPRESSION FX/RX HERE GAIT DISORDER TIA TIA (cardiology) TIA (cardiology) tia SNF LAB WORK CONSULT-CAROTID STENOSIS Reason for Visit Abnormality of gait and mobility Carotid stenosis Dementia Polyneuropathy Transient ischemic attack Chronic diastolic (congestive) heart failure Essential (primary) hypertension History of coronary artery stent placement Brain TIA Carotid stenosis Chief Complaint TIA SYMPTOMS, HX OF DM, 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 EORDER FOR LABS FROM DR JUAREZ Consult LEFT ICA STENOSIS 6 M FU W DIRECTOR OF TRAUMA per DIRECTOR OF TRAUMA GAIT,POLYNEUROPATHY,LUMBAR COMPRESSION FX/RX HERE GAIT DISORDER TIA TIA (cardiology) TIA (cardiology) tia SNF LAB WORK CONSULT-CAROTID STENOSIS LABWORK SNF LABWORK Reason for Visit Abnormality of gait and mobility Carotid stenosis Dementia Polyneuropathy Transient ischemic attack Chronic diastolic (congestive) heart failure Essential (primary) hypertension History of coronary artery stent placement Brain TIA Carotid stenosis Chief Complaint TIA SYMPTOMS, HX OF DM, 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 EORDER FOR LABS FROM DR JUAREZ Consult LEFT ICA STENOSIS 6 M FU W DIRECTOR OF TRAUMA per DIRECTOR OF TRAUMA GAIT,POLYNEUROPATHY,LUMBAR COMPRESSION FX/RX HERE GAIT DISORDER TIA TIA (cardiology) TIA (cardiology) tia SNF LAB WORK CONSULT-CAROTID STENOSIS LABWORK SNF LABWORK DYARTHRIA DYARTHRIA Reason for Visit Abnormality of gait and mobility Carotid stenosis Dementia Polyneuropathy Transient ischemic attack Chronic diastolic (congestive) heart failure Essential (primary) hypertension History of coronary artery stent placement Brain TIA Carotid stenosis Difficulty with speech Dysarthria Chief Complaint LEFT ICA STENOSIS 6 M FU W DIRECTOR OF TRAUMA per DIRECTOR OF TRAUMA GAIT,POLYNEUROPATHY,LUMBAR COMPRESSION FX/RX HERE GAIT DISORDER TIA TIA (cardiology) TIA (cardiology) tia SNF LAB WORK CONSULT-CAROTID STENOSIS LABWORK SNF LABWORK DYARTHRIA DYARTHRIA DYARTHRIA SNF LABWORK 4 month f/u EORDER Reason for Visit Chronic diastolic (c ongestive) heart failure Essential (primary) hypertension History of coronary artery stent placement Brain TIA Carotid stenosis Difficulty with speech Dysarthria Polyneuropathy Chief Complaint 6 M FU W DIRECTOR OF TRAUMA per DIRECTOR OF TRAUMA GAIT,POLYNEUROPATHY,LUMBAR COMPRESSION FX/RX HERE GAIT DISORDER TIA TIA (cardiology) TIA (cardiology) tia SNF LAB WORK CONSULT-CAROTID STENOSIS LABWORK SNF LABWORK DYARTHRIA DYARTHRIA DYARTHRIA SNF LABWORK 4 month f/u EORDER Reason for Visit Chronic diastolic (c ongestive) heart failure Essential (primary) hypertension History of coronary artery stent placement Brain TIA Carotid stenosis Difficulty with speech Dysarthria Abnormality of gait and mobility Carotid stenosis Dementia Polyneuropathy Transient ischemic attack Chief Complaint TIA TIA (cardiology) TIA (cardiology) tia SNF LAB WORK CONSULT-CAROTID STENOSIS LABWORK SNF LABWORK DYARTHRIA DYARTHRIA DYARTHRIA SNF LABWORK 4 month f/u EORDER SNF LABWORK Reason for Visit Brain TIA Carotid stenosis Difficulty with speech Dysarthria Abnormality of gait and mobility Carotid stenosis Dementia Polyneuropathy Transient ischemic attack Chief Complaint SNF LABWORK 4 month f/u EORDER SNF LABWORK SNF LAB WORK SNF LABWORK Reason for Visit Dementia Epilepsy Polyneuropathy Transient ischemic attack Chief Complaint 4 month f/u EORDER SNF LABWORK SNF LAB WORK SNF LAB WORK SNF LABWORK 7 m fu 4 month f/u Reason for Visit Dementia Epilepsy Polyneuropathy Transient ischemic attack Longstanding persistent atrial fibrillation Essential (primary) hypertension History of coronary artery stent placement Dementia Epilepsy Polyneuropathy Transient ischemic attack Chief Complaint SNF LABWORK SNF LAB WORK SNF LAB WORK SNF LABWORK LABWORK 7 m fu 4 month f/u LABWORK Reason for Visit Longstanding persist ent atrial fibrillation Essential (primary) hypertension History of coronary artery stent placement Dementia Epilepsy Polyneuropathy Transient ischemic attack Chief Complaint SNF LABWORK SNF LAB WORK SNF LAB WORK SNF LABWORK LABWORK 7 m fu 4 month f/u LABWORK FALL FALL Reason for Visit Longstanding persist ent atrial fibrillation Essential (primary) hypertension History of coronary artery stent placement Dementia Epilepsy Polyneuropathy Transient ischemic attack Chief Complaint SNF LAB WOR K SNF LAB WORK SNF LABWORK LABWORK 7 m fu 4 month f/u LABWORK FALL FALL LABWORK Reason for Visit Longstanding persist ent atrial fibrillation Essential (primary) hypertension History of coronary artery stent placement Dementia Epilepsy Polyneuropathy Transient ischemic attack Chief Complaint Admit Date SNF LAB WORK February 05, 2024 5:00am SNF LAB WORK March 04, 2024 5:00am SNF LAB WORK March 08, 2024 5:00am SNF LAB WORK March 10 4:00am LABWORK March 17, 2024 5:00am LABWORK March 19, 2024 5:00am LABWORK March 25, 2024 5:00am SNF LAB WORK March 26 5:00am SNF LAB WORK March 29 5:00am SNF LAB WORK April 05, 2024 5:00am SNF LAB WORK April 06, 2024 5:00am LABWORK April 09, 2024 5 :00am SNF LAB WORK April 14, 2024 4:00am SNF LAB WORK April 28, 2024 5:00am LABWORK May 05, 2024 5 :00am 8 mo fu May 10, 2024 2:34pm SNF LAB WORK May 19 5:00am Reason for Visit Admit Date Dementia May 10, 2024 2:34pm Epilepsy May 10, 2024 2:34pm Transient ischemic attack May 10, 2024 2:34pm Chief Complaint Admit Date SNF LAB WORK March 04, 2024 5:00am SNF LAB WORK March 08, 2024 5:00am SNF LAB WORK March 10 4:00am LABWORK March 17, 2024 5:00am LABWORK March 19, 2024 5:00am LABWORK March 25, 2024 5:00am SNF LAB WORK March 26 5:00am SNF LAB WORK March 29 5:00am SNF LAB WORK April 05, 2024 5:00am SNF LAB WORK April 06, 2024 5:00am LABWORK April 09, 2024 5 :00am SNF LAB WORK April 14, 2024 4:00am SNF LAB WORK April 28, 2024 5:00am LABWORK May 05, 2024 5 :00am 8 mo fu May 10, 2024 2:34pm SNF LAB WORK May 12 5:00am SNF LAB WORK May 19 5:00am SNF LAB WORK June 09, 2024 5 :00am Chief Complaint Admit Date SNF LAB WORK March 10 4:00am LABWORK March 17, 2024 5:00am LABWORK March 19, 2024 5:00am LABWORK March 25, 2024 5:00am SNF LAB WORK March 26 5:00am SNF LAB WORK March 29 5:00am SNF LAB WORK April 05, 2024 5:00am SNF LAB WORK April 06, 2024 5:00am LABWORK April 09, 2024 5 :00am SNF LAB WORK April 14, 2024 4:00am SNF LAB WORK April 28, 2024 5:00am LABWORK May 05, 2024 5 :00am 8 mo fu May 10, 2024 2:34pm SNF LAB WORK May 12 5:00am SNF LAB WORK May 19 5:00am SNF LAB WORK June 09, 2024 5 :00am SNF LAB WORK June 16, 2024 5 :00am [...] Admit Date LABWORK March 25, 2024 5:00am SNF LAB WORK March 26 5:00am SNF LAB WORK March 29 5:00am SNF LAB WORK April 05, 2024 5:00am SNF LAB WORK April 06, 2024 5:00am LABWORK April 09, 2024 5 :00am SNF LAB WORK April 14, 2024 4:00am SNF LAB WORK April 28, 2024 5:00am LABWORK May 05, 2024 5 :00am 8 mo fu May 10, 2024 2:34pm SNF LAB WORK May 12 5:00am SNF LAB WORK May 19 5:00am SNF LAB WORK June 09, 2024 5 :00am SNF LAB WORK June 16, 2024 5 :00am 1 Y FU July 01, 2024 10:3 5am SNF LAB WORK July 19, 2024 4 :00am Chief Complaint Admit Date SNF LAB WORK May 12 5:00am SNF LAB WORK May 19 5:00am SNF LAB WORK June 09, 2024 5 :00am SNF LAB WORK June 16, 2024 5 :00am 1 Y FU July 01, 2024 10:3 5am SNF LAB WORK July 19, 2024 4 :00am SNF LAB WORK August 18, 2024 5:0 0am SEIZURE September 08, 2024 12:2 0pm Reason for Visit Admit Date Longstanding persistent atrial fibrillat ion July 01, 2024 10:35am Essential (primary) hypertension July 012024 10:35am History of coronary artery stent placeme nt July 01, 2024 10:35am Chief Complaint Admit Date SNF LAB WORK May 19 5:00am SNF LAB WORK June 09, 2024 5 :00am SNF LAB WORK June 16, 2024 5 :00am 1 Y FU July 01, 2024 10:3 5am SNF LAB WORK July 19, 2024 4 :00am SNF LAB WORK August 18, 2024 5:0 0am SEIZURE September 08, 2024 12:2 0pm Chief Complaint Admit Date SNF LAB WORK May 19 5:00am SNF LAB WORK June 09, 2024 5 :00am SNF LAB WORK June 16, 2024 5 :00am 1 Y FU July 01, 2024 10:3 5am SNF LAB WORK July 19, 2024 4 :00am SNF LAB WORK August 18, 2024 5:0 0am SEIZURE September 08, 2024 12:2 0pm STROKE VS SEIZURE September 10, 2024 4:03 pm Chief Complaint Admit Date SNF LAB WORK May 19 5:00am SNF LAB WORK June 09, 2024 5 :00am SNF LAB WORK June 16, 2024 5 :00am 1 Y FU July 01, 2024 10:3 5am SNF LAB WORK July 19, 2024 4 :00am SNF LAB WORK August 18, 2024 5:0 0am [...] 2024 4 :03pm Chief Complaint Admit Date SNF LAB WORK May 19 5:00am SNF LAB WORK June 09, 2024 5 :00am SNF LAB WORK June 16, 2024 5 :00am 1 Y FU July 01, 2024 10:3 5am SNF LAB WORK July 19, 2024 4 :00am SNF LAB WORK August 18, 2024 5:0 0am SEIZURE September 08, 2024 12:2 0pm STROKE VS SEIZURE September 10, 2024 4:03 pm STROKE VS SEIZURE September 11, 2024 12:1 4pm 2 SEIZURES/ IN [facility] September 13, 2024 2:04 pm [...] content) DATE CREATED AUTHOR 02/04/2018 [facility] DATE CREATED AUTHOR AUTHOR'S ORGANIZ ATION 11/12/2019 [facility] DATE CREATED AUTHOR AUTHOR'S ORGANIZ ATION 06/26/2023 [facility] DATE CREATED AUTHOR AUTHOR'S ORGANIZ ATION 09/18/2024 [facility] Source Comments (unrecognize d section and content) In the event this informatio n is protected by the Federal Confidentiality of Alcohol and Drug Abuse Patient Records regulations: The Federal rules restrict any use of the information to criminally investigate or prosecute any alcohol or drug abuse patient.[facility] the event this information is protected by the Federal Confidentiality of Alcohol and Drug Abuse Patient Records regulations: The Federal rules restrict any use of the information to criminally investigate or prosecute any alcohol or drug abuse patient.[facility] Hospital[facility] the event this information is protected by the Federal Confidentiality of Alcohol and Drug Abuse Patient Records regulations: The Federal rules restrict any use of the information to criminally investigate or prosecute any alcohol or drug abuse patient.[facility] the event this information is protected by the Federal Confidentiality of Alcohol and Drug Abuse Patient Records regulations: The Federal rules restrict any use of the information to criminally investigate or prosecute any alcohol or drug abuse patient.[facility] Hospital[facility] the event this information is protected by the Federal Confidentiality of Alcohol and Drug Abuse Patient Records regulations: The Federal rules restrict any use of the information to criminally investigate or prosecute any alcohol or drug abuse patient.[facility] Reason for Visit (unrecogniz ed section and content) Reason Onset Date Comments Refill Request Refill Request 11/11/2019 Reason Comments Arm Injury Pt arrives via [facility] ambulance from [facility] with complaints of right elbow fracture. Patient was sent here for ortho consult. No pain on arrival. Arrives with right arm splinted. Specialty Diagnoses / Procedures Referred By Ana t Referred To Contact Diagnoses Closed displaced fracture of medial condyle of right humerus, initial encounter Procedures .. Jaysrhee Cortez MD [address] [place] [address] [facility] Emergency Dept [address] [place] [id number] Referral ID Status Reason Start Date Expiration Date Visits Re quested Visits Authorized [id number] 1 1 Telephone Encounter - Hobbs Prince [...] Visit date not found Patient Phone numbers: [phone] (home) Request is for script(s) to be [...] Neri Mitchell MD Emergency Provider Active Dr. aSe Carballo MD Admit Provi ada, Attending Provider, Other Provider Active Team Status: Active Member Role Status Dates Dr. Rosemary Doran MD Primary Care Provider Active Dr. Betian Carver MD Attending Provider Active Team Status: [...] MD Primary Care Provider Active Suze [facility] Attending Provider, Referring Pr ovider Active Team [...] Rosemary Doran MD Primary Care Provider Active Manager Music Relationship Specialty Start Date End Date Alexandra Hagen [address] [id number] PCP - General Family Medicine 06/20/23 Team [...] Care Provider Active Start: May 05, 2024 Csear MARTINEZ MD Attending Provider Active St art: [...] from all sources in 24 hours. 1511 ([facility] Hold - Provider: Automatic Transfer Provider - Reason: Patient not available)2025 ([facility] Unhold - Provider: Automatic Transfer Provider) acetaminophen (Tylenol) tablet 650 mg(Linked Group 2) 650 mg, Oral, Every 6 hours PRN, mild pain (1-3), fever, For temp greater than 100.4 F (38 C), Starting on Fri06/16/23 at 1639, Maximum dose of acetaminophen is 4000 mg from all sources in 24 hours. 1511 ([facility] Hold - Provider: Automatic Transfer Provider - Reason: Patient not available)2025 ([facility] Unhold - Provider: Automatic Transfer Provider) dextrose 5 % infusion 100 mL/hr, IntraVENous, PRN, Blood sugar less than 70mg/dL, Starting on Fri06/17/23 at 2131, Start infusion following administration of dextrose 50% or glucagon. 1511 ([facility] Hold - Provider: Automatic Transfer Provider - Reason: Patient not available)2025 ([facility] Unhold - Provider: Automatic Transfer Provider) dextrose [...] Glucostabilizer, dose as instructed per system. 1511 ([facility] Hold - Provider: Automatic Transfer Provider - Reason: Patient not available)2025 ([facility] Unhold - Provider: Automatic Transfer Provider) [...] 15 minutes x2 and notify provider. 1511 ([facility] Hold - Provider: Automatic Transfer Provider - Reason: Patient not available)2025 ([facility] Unhold - Provider: Automatic Transfer Provider) [...] 15 minutes x2 and notify provider. 1511 ([facility] Hold - Provider: Automatic Transfer Provider - Reason: Patient not available)2025 ([facility] Unhold - Provider: Automatic Transfer Provider) [...] of each other unless specifically ordered. 1511 ([facility] Hold - Provider: Automatic Transfer Provider - Reason: Patient not available)2025 ([facility] Unhold - Provider: Automatic Transfer Provider) naloxone (Narcan) injection 0.4 mg 0.4 mg, IntraVENous, Every 5 min PRN, opioid reversal, respiratory depression, Starting on Fri06/16/23 at 1647, +++ For RR <10, pinpoint pupils, over sedation for opioid reversal - MUST notify still operator batch or continuous provider immediately after first dose, may give IM or SQ if no IV access +++ 1511 ([facility] Hold - Provider: Automatic Transfer Provider - Reason: Patient not available)2025 ([facility] Unhold - Provider: Automatic Transfer Provider) ondansetron (Zofran) injection 4 mg(Linked Group 3) 4 mg, IntraVENous, Every 6 hours PRN, nausea, vomiting, Starting on Fri06/16/23 at 1639, 1st Line. Give IV if patient is unable to take orally. If inadequate response within 60 minutes, proceed to next-line agent or contact provider if no further options ordered. 1511 ([facility] Hold - Provider: Automatic Transfer Provider - Reason: Patient not available)2025 ([facility] Unhold - Provider: Automatic Transfer Provider) [...] blister pack until just before administering. 1511 ([facility] Hold - Provider: Automatic Transfer Provider - Reason: Patient not available)2025 ([facility] Unhold - Provider: Automatic Transfer Provider) oxyCODONE (Roxicodone) immediate release tablet 2.5 mg(Linked Group 4) 2.5 mg, Oral, Every 4 hours PRN, moderate pain (4-6), Starting on Fri06/16/23 at 1639 151 ([facility] Hold - Provider: Automatic Transfer Provider - Reason: Patient not available)2025 ([facility] Unhold - Provider: Automatic Transfer Provider) 0924 (See Alternative - Provider: Juanjo Villalba, RN) oxyCODONE (Roxicodone) immediate release tablet 5 mg(Linked Group 4) 5 mg, Oral, Every 4 hours PRN, severe pain (7-10), Starting on Fri06/16/23 at 1639 151 ([facility] Hold - Provider: Automatic Transfer Provider - Reason: Patient not available)2025 ([facility] Unhold - Provider: Automatic Transfer Provider) [...] BE BASED ON THE PRIMARY CLINICAL RECORDS. [employer] [facility]. provides no warranty or guarantee of the accuracy or completeness of information in this document.
[2024-09-22 09:24] LABS: Anion Gap 12 (5-15); BUN 30 mg/dL (4-19); BUN/Creat Ratio 29.4 RATIO (10-20); Carbon Dioxide 23.8 mmol/L (21.0-32.0); Chloride 105 mmol/L (98-108); Cholesterol 195 mg/dL (<=200); Creatinine, Serum 1.03 mg/dL (0.70-1.20); EST Glomerular Filtration Rate 52 (>60); Glucose 123 mg/dL (70-99); High Density Lipoprotein 62 mg/dL; Low Density Lipoprotein Calc. 109 mg/dL; Potassium 4.8 mmol/L (3.3-5.1); Sodium Level 140 mmol/L (133-145); Triglycerides 118 mg/dL; Very Low Density Lipoprotein 24 mg/dL (5-40); cholesterol:hdl ratio screen 3.13
== END ==
PROVIDERS: Referring Provider Family Medicine; Visit Provider Family Medicine
DX: I10 Essential (primary) hypertension (principal); E78.5 Hyperlipidemia, unspecified
CPT/HCPCS: 36415; 80048; 80061

== ENCOUNTER → 2024-09-24 | Outpatient (REF) | payer MEDICARE, SELFPAY ==
--- OUTSIDE RECORDS SUMMARY | 2024-09-24 04:33 | XMS RPT_ITS | CCD ---
Author Organization [facility] Care Team Providers Care Processor Grain Name Role Phone LISHNEVSKI, ALEXIA Unavailable Unavailable [...] LISHNEVSKI, ALEXIA Unavailable Unavailable Villa Hebert Unavailable [phone] Patito Gonzalez Unavailable Nirmal Kemp Unavailable Mohan Álvarez Unavailable Bishop, Rickey Clive Unavailable Rosemary Doran Primary Care Provider [phone] Lishnevski, Alexia Primary Care Provider Zenaida Henderson Unavailable Dr. Rosemary Doran Primary Care Provider [phone] Dr. Rosemary Doran Referring Provider Roof HOTBED OPERATOR, HOTBED OPERATOR-Adeel Arnett Attending Provider Dr. Rosemary Doran Primary [...] Dr. Rosemary Doran Primary Care Provider MD Kvng Carney Attending Provider Alexandra Hagen Primary Care Provider JAYSHREE CORTEZ Admitting Unavailable CONNIE PEREZ Attending Unavailable ALEXANDRA HAGEN Primary Care Unavailable Dr. Alexandra Hagen MD Primary Care Provider Dr. Kvng Ochoa MD Attending Provider Unavail able Dr. Kvgn Ochoa MD Referring Provider Unavail able Cesar Cole MD Attending Provider Unavailable Dr. Rosemary Doran MD Referring Provider Dr. Anant Juarez MD Attending Provider Anant Juarez MD Attending Provider Unavailab kamari Hagen MD, Dr. Alexandra Johansen Primary Care Provider Dr. Kvng Ochoa MD Attending Provider Unavail able Dr. Kvng Ochoa MD Referring Provider Unavail able Cesar Cole MD Attending Provider Unavailable Dr. Rosemary Doran MD Referring Provider Jerrica LENNON, Dr. Ny Attending Provider Anant Juarez MD Attending Provider Unavailab kamari Hagen MD, Dr. Alexandra Johansen Primary Care Provider Dr. Kvng Ochoa MD Attending Provider Unavail able Dr. Alexandra Hagen MD Referring Provider Douglas LENNON, Dr. Guerrero Attending Provider Dr. Alexandra Hagen MD Primary Care Provider Dr. Kvng Ochoa MD Attending Provider Unavail able Dr. Kvng Ochoa MD Referring Provider Unavail able Cesar Cole MD Referring Provider Unavailable Dr. Alexandra Hagen MD Primary Care Provider Cesar Cole MD Attending Provider Unavailable Dr. Kvng Ochoa MD Attending Provider Unavail able Dr. Anoop Blackmon MD Referring Provider Dr. Anoop Blackmon MD Emergency Provider Dr. Kvng Ochoa MD Primary Care Provider Unav ailable Dr. Alexandra Hagen MD Primary Care Provider Dr. Kvng Ochoa DO Primary Care Provider Dr. Teri [...] Neymar LENNON, Dr. Davalos Attending Provider Dr. Kvng Ochoa DO Referring Provider Jerrica LENNON, Dr. Ny Attending Provider [phone] Jerrica LENNON, Dr. Ny Referring Provider Kvng Ochoa Primary Care Unavailable Douglas OLS, Walford Attending Unavailable Ochoa OLS, Kvng Attending Unavailable Jolliff, Alexandra S Primary Care Unavailable Ochoa OLS, Kvng Attending Unavailable Jolliff, Alexandra S Primary Care Unavailable Jolliff, Alexandra S Primary Care Unavailable Ochoa OLS, Kvng Attending Unavailable Jolliff, Alexandra S Primary Care Unavailable Ochoa OLS, Kvng Attending Unavailable Jolliff, Alexandra S Primary Care Unavailable Ochoa OLS, Kvng Attending Unavailable Ochoa OLS, Vkng Referring Unavailable Ochoa OLS, Kvng Attending Unavailable Jolliff, Alexandra S Primary Care Unavailable Ochoa OLS, Kvng Referring Unavailable Jolliff, Alexandra S Primary Care Unavailable Ochoa OLS, Kvng Attending Unavailable Ochoa, Kvng Referring Unavailable Ochoa, Kvng Primary Care Unavailable BaddoAnant quarles Attending Unavailable Jolliff, Alexandra S Primary Care Unavailable Baddour Anant MARTINEZ Attending Unavailable Ochoa OLS, Kvng Primary Care Unavailable Blackmon, Anoop Attending Unavailable Blackmon, Anoop Referring Unavailable Jolliff, Alexandra S Primary Care Unavailable Ochoa OLS, Kvng Attending Unavailable Ochoa JUAN, Kvng Attending Unavailable Jolliff, Alexandra S Primary Care Unavailable Ochoa OLS, Kvng Attending Unavailable Jolliff, Alexandra S Primary Care Unavailable Ochoa JUAN, Kvng Attending Unavailable Jolliff, Alexandra S Primary Care Unavailable Ochoa OLS, Kvng Attending Unavailable Jolliff, Alexandra S Primary Care Unavailable Douglas OLS, Walford Attending Unavailable Jolliff, Alexandra S Primary Care Unavailable Jolliff, Alexandra S Primary Care Unavailable Ochoa OLS, Kvng Attending Unavailable Douglas OLS, Walford Referring Unavailable Douglas OLS, Walford Attending Unavailable Jolliff, Alexandra S Primary Care Unavailable Jolliff, Alexandra S Primary Care Unavailable Douglas OLS, Walford Attending Unavailable Jolliff, Alexandra S Primary Care Unavailable Ochoa OLS, Kvng Attending Unavailable Don, Kvng Primary Care Unavailable Anant Juarez Referring Unavailable Anant Juarez Attending Unavailable Ochoa OLS, Kvng Attending Unavailable Jolliff, Alexandra S Primary Care Unavailable Ochoa, Kvng Primary Care Unavailable Adeli, Amir Consulting Unavailable Matthew Oro Admitting Unavailable Matthew Oro Attending Unavailable Janett French Consulting Unavailable Julia Carpenter Consulting Unavailable Keyshawn Swan Consulting Unavailable Dmitriy Diop Consulting Unavailable Morris Edmondsoninghope Consulting Unavailable JULITA, CEDILLO Consulting Unavailable Betia, Cara Consulting Unavailable Flynn, Lorelei Consulting Unavailable Robinson Mayorga Consulting Unavailable Matmery, Aura Consulting Unavailable Mervat, Eric Consulting Unavailable Hinduja, Camila Consulting Unavailable Kavon, Glenna Consulting Unavailable Joi, Lenin Consulting Unavailable Alexandra, Ml Consulting Unavailable Bittar, Chauncey Consulting Unavailable Nirmal Hummel Consulting Unavailable Mariul, Rubén Consulting Unavailable Ridha, Mohamed Consulting Unavailable Zaghlomaryh, Mhd Kevyn Consulting UnavailBala Iqbal Consulting Unavailable Jones, Rami Consulting Unavailable Mariaa, Daniel Consulting Unavailable Kory, Cindy Consulting Unavailable Hannadayday, Yousef Consulting Unavailable Kvng Whalen Referring Unavailable Kvng Ochoa Primary Care Unavailable Kvng Whalen Attending Unavailable Don, Kvng Primary Care Unavailable Adeli, Amir Consulting Unavailable Matthew Oro Admitting Unavailable Matthew Oro Attending Unavailable Janett French Consulting Unavailable Julia Carpenter Consulting Unavailable Keyshawn Swan Consulting Unavailable Dmitriy Diop Consulting Unavailable Delvis, Kmysingh Consulting Unavailable JULITA, CEDILLO Consulting Unavailable Betia, Cara Consulting Unavailable Flynn, Lorelei Consulting Unavailable Vernell Mayorgail Consulting Unavailable Olman, Aura Consulting Unavailable Mervat Eric Consulting Unavailable Hinduja, Camila Consulting Unavailable Kavon, Glenna Consulting Unavailable Joi, Lenin Consulting Unavailable Alexandra, Ml Consulting Unavailable Bittar, Chauncey Consulting Unavailable Nirmal Hummel Consulting Unavailable Marilu, Rubén Consulting Unavailable Ridha, Mohamed Consulting Unavailable Zaghlomaryh, Mhd Kevyn Consulting UnavailBala Iqbal Consulting Unavailable Jones, Rami Consulting Unavailable Mariaa, Daniel Consulting Unavailable Kory, Cindy Consulting Unavailable Hannawi, Yousef Consulting Unavailable Matthew Oro Consulting Unavailable Alexandra Hagen Primary Care Unavailable Kvng Whalen Attending Unavailable Anant Juarez Attending Unavailable Jolliff, Alexandra S Primary Care Unavailable Rosemary Doran Referring Unavailable Jolliff, Alexandra S Primary Care Unavailable Douglas, Cesar Attending Unavailable Jolliff, Alexandra S Referring Unavailable Jolliff, Alexandra S Primary Care Unavailable Ochoa OLS, Kvng Attending Unavailable Jolliff, Alexandra S Primary Care Unavailable Ochoa OLS, Kvng Attending Unavailable Jolliff, Alexandra S Primary Care Unavailable Ochoa JUAN, Kvng Attending Unavailable Ochoa JUAN, Kvng Referring Unavailable Jolliff, Alexandra S Primary Care Unavailable Ochoa OLS, Kvng Attending Unavailable Jolliff, Alexandra S Primary Care Unavailable Ochoa JUAN, Kvng Attending Unavailable Douglas OLS, Walford Attending Unavailable Jolliff, Alexandra S Primary Care Unavailable Ochoa OLS, Kvgn Attending Unavailable Jolliff, Alexandra S Primary Care Unavailable Don MARTINEZ, Kvng Attending Unavailable Jolliff, Alexandra S Primary Care Unavailable Ochoa OLS, Kvng Attending Unavailable Jolliff, Alexandra S Primary Care Unavailable Jolliff, Alexandra S Primary Care Unavailable Ochoa OLS, Kvng Attending Unavailable Ochoa OLS, Kvng Attending Unavailable Jolliff, Alexandra S Primary Care Unavailable Kvng Whalen Referring Unavailable Jolliff, Alexandra S Primary Care Unavailable Ochoa OLS, Kvng Attending Unavailable Ochoa OLS, Kvng Attending Unavailable Jolliff, Alexandra S Primary Care Unavailable Allergies Allergy Classification Reported Allergen(s) Allergy Type Date of Onset Reaction(s) Facility (20 sources) atorvastatin; 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: [ATORVASTATIN] Drug Allergy 5 Other: See Comments [facility] Repository (20 sources) codeine; 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: [CODEINE] Drug Allergy 5 Unknown [facility] Repository (20 sources) Latex; 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: [LATEX] Propensity to adverse reactions (disorder) 5 Rash, Itching [facility] Repository (20 sources) meperidine; 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: [MEPERIDINE] Drug Allergy 5 GI Upset [facility] Repository (20 sources) rosuvastatin; 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: [ROSUVASTATIN] Drug Allergy 5 Other: See Comments [facility] Repository (20 sources) Amiodarone Drug Allergy 2 "Hair falling out in gobs", hair loss [facility] (1 source) Amiodarone Drug Allergy 5 [facility] Repository Medications Current Medications Medication [...] release tablet 2.5 mg polyethylene glycol 3350 27296 mg powder for oral solution (4 sources) [...] have IV access., Starting on Fri06/17/23 at 213, After administration, attempt intravenous access and start [...] metabolism (20 sources) Mixed hyperlipidemia; 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: [Hyperlipidemia] Onset: 09-22-2024 11-27-2018 Chronic E Codes: Fall (14 sources) [...] 11-27-2018 11-27-2018 Episodic Other aftercare (2 sources) penitentiary (current) use 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; 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: [penitentiary (current) use 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] Onset: 04-15-2024 Episodic [...] source) Slurred speech; 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: [Slurred speech] Onset: 09-22-2024 Episodic Other non-traumatic joint disorders (5 sources) [...] 11-24-2015 Episodic Other aftercare (1 source) 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 [place], [place], [id number] Lamotrigine (Lamictal) Level on 09-16-2024 LAMOTRIGINE 1.7 ug/mL Low 2.0-20.0 [facility] Comment on above: Result Comment: Dete ction Limit = 1.0 Performed at: [address] [id number] Artificial Teeth Inspector: Brandon Wells MD, Phone: [phone] Performed By: #### L 503.5510, L3310.0000, L3300.4400 ####[facility] [address] [place], [place], [address] Ammoniaon 09-13-2024 Ammonia (P) [Moles/Vol] 28.9 umol/L Normal 11-51 [facility] Comment on above: Performed By: #### L 503.5510, L3310.0000, L3300.4400 ####[facility] [address] [place], [place], [address] Neurology Visit Reporton Neurology Visit Report [facility] [address] [facility], [address] [place], [place] [address] OFFICE VISIT Date of Service: 09/13/24 MR#: [id number] Acct: [id number] Name: EZRA GONZALEZ Rep #: [id number] : 1935 Provider: Dr. Anant baez MD Age/Sex: 89/F Location: [facility]. Status: Signed HPI [facility] Chief Complaint: Details: Interim History: Ezra returns for follow-up visit. She has a history of hypertension, hyperlipidemia, atrial fibrillation, chronic renal insufficiency, myocardial infarction (2006), coronary artery stent placement (2009), left hip replacement (2012), bilateral knee replacements (2016), diabetes mellitus and lumbar L1 compression fracture status post kyphoplasty. She resides in an assisted care facility. She has had memory difficulty since at least 2021. She has a tendency to forget conversations and to repeat conversations. 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 She has become lost while driving in familiar places. She has had word finding difficulty. She had difficulty performing cooking and no longer does so. She is independent in activities such as dressing and bathing. Her cognitive deficits gradually worsened over time however no further worsening within recent months is reported. She takes donepezil. She has had some gait imbalance since 2020. She had a fall in 2020 and sustained a lumbar L1 compression fracture and has chronic low back pain. She underwent cement kyphoplasty in 2020 for t he lumbar compression fracture however her low back [...] exhibit a festinating gait. She had 2 falls in 2022. She has had some urinary incontinence. She has depression. She has fatigue. She had another fall in May 2023; she sustained a right humerus fracture for which she [...] taking warfarin as prescribed. Between 09/18/2022 and November 2022 she has had 3 further episodes of garbled speech/aphasia the last of which occurred in November 2022; episodes lasted about 1 hour each. 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 Aspirin 81 mg daily was initiated following her episode in November 2022 however she subsequently discontinued aspirin. She had another episode of slurred speech lasting 5 to 10 minutes without change in level of consciousness earlier in August 2024 and was hospitalized for this. A head MRI earlier in August 2024 did not reveal an acute ischemic or hemorrhagic event. 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 Levetiracetam was initiated earlier in August 2024 following her episode of dysarthria. Her lamotrigine level was low in May 2024. A urine culture earlier in August 2024 was positive for Klebsiella pneumoniae sp pneum. Physical therapy was ordered in 2022. Mini-Mental status exam score was 27/30 in August 2022, 28/30 in December 2022, and 30/30 in May 2024. Physical Exam: Neuro: The patient is awake and alert and responds appropriately; she is able to subtract 7 from 100; she is oriented to day of the week Neck: No bruits Heart: Irregularly irregular Supplemental Info Lipid profile, CBC, CMP (06/26/2022): Cholesterol 163 (normal), triglycerides 178 (normal), HDL 47 (normal), LDL 80 (normal), VLDL 36 (normal), BUN 20 (high), creatinine 1.11 (high), EGFR 49 (low), glucose 142 ( (more content not included)... Normal [facility] Venous blood ammonia measure mentOrdered By: Anant Juarez on 09-13-2024 Ammonia (P) [Moles/Vol] 28.9 umol/L [facility] Lamotrigine (Lamictal) Level on 09-12-2024 LAMOTRIGINE 1.2 ug/mL Low 2.0-20.0 [facility] Comment on above: Result Comment: Dete ction Limit = 1.0 Performed at: - [address] [id number] Artificial Teeth Inspector: Brandon Wells MD, Phone: [phone] Performed By: #### L 100.0100, L500.2500, L300.3900, L3300.4400 ####[facility] [address] [place], [place], [id number] Urine Cultureon 09-12-2024 URC Klebsiella pneumonia e sp pneum [place] Count 80,000-100,000 Klebsiella pneumoniae sp pneum: REACTION [...] TMP SMX Islt MELINDA <=20 S Normal [facility] Comment on above: Performed By: #### M 100.2200 ####[facility] [address] [place], [place], [id number] Anion gap in Serum or Plasma Ordered By: Matthew Oro on 09-11-2024 Anion gap [Moles/Vol] 12 mmol/L 08-12 [facility] BUN/creatinine ratioOrdered By: Matthew Oro on 09-11-2024 Urea nitrogen/Creatinine [Mass ratio] 30.4 mg/mg High 01-17 [facility] Basic Metabolic Profile (BMP )on 09-11-2024 BUN/CRE 30.4 RATIO [facility] Comment on above: Order Comment: Comme nts: NPO at [place] prior to lipid panel Performed By: #### L 500.4100, L100.0500, L500.2500 #### [facility] [address] [place], [place], [id number] Calcium [Mass/Vol] 8.8 mg/dL Normal 7.6-11.0 [facility] Comment on above: Order Comment: Comme nts: NPO at [place] prior to lipid panel Performed By: #### L 500.4100, L100.0500, L500.2500 #### [facility] [address] [place], [address] Chloride [Moles/Vol] 105 mmol/L Normal 98-108 [facility] Comment on above: Order Comment: Comme nts: NPO at [place] prior to lipid panel Performed By: #### L 500.4100, L100.0500, L500.2500 #### [facility] [address] [place], [address] CO2 [Moles/Vol] 21.6 mmol/L Normal 21.0-32.0 [facility] Comment on above: Order Comment: Comme nts: NPO at [place] prior to lipid panel Performed By: #### L 500.4100, L100.0500, L500.2500 #### [facility] [address] [place], [address] Creatinine [Mass/Vol] 0.91 mg/dL Normal 0.70-1.20 [facility] Comment on above: Order Comment: Comme nts: NPO at [place] prior to lipid panel Performed By: #### L 500.4100, L100.0500, L500.2500 #### [facility] [address] [place], [address] ECRCL 41.34 ml/min Low 50-250 [facility] Comment on above: Order Comment: Comme nts: NPO at [place] prior to lipid panel Performed By: #### L 500.4100, L100.0500, L500.2500 #### [facility] [address] [place], [address] GAP 12 Normal 5-15 [facility] Comment on above: Order Comment: Comme nts: NPO at [place] prior to lipid panel Performed By: #### L 500.4100, L100.0500, L500.2500 #### [facility] [address] [place], [address] GFR/1.73 sq M.predicted among non-blacks MDRD (S/P/Bld) [Vol rate/Area] 61 mL/min/{1.73_m2} Normal >60 [facility] Comment on above: Order Comment: Comme nts: NPO at [place] prior to lipid panel Result Comment: mL/m in/1.73m2 CKD-EPI Creatinine Equation (2020) Performed By: #### L 500.4100, L100.0500, L500.2500 #### [facility] [address] [place], [address] Glucose [Mass/Vol] 118 mg/dL High 70-99 [facility] Comment on above: Order Comment: Comme nts: NPO at [place] prior to lipid panel Performed By: #### L 500.4100, L100.0500, L500.2500 #### [facility] [address] [place], [address] Potassium [Moles/Vol] 4.4 mmol/L Normal 3.3-5.1 [facility] Comment on above: Order Comment: Comme nts: NPO at [place] prior to lipid panel Performed By: #### L 500.4100, L100.0500, L500.2500 #### [facility] [address] [place], [address] Sodium [Moles/Vol] 139 mmol/L Normal 133-145 [facility] Comment on above: Order Comment: Comme nts: NPO at [place] prior to lipid panel Performed By: #### L 500.4100, L100.0500, L500.2500 #### [facility] [address] [place], [address] Urea nitrogen [Mass/Vol] 28 mg/dL High 4-19 [facility] Comment on above: Order Comment: Comme nts: NPO at [place] prior to lipid panel Performed By: #### L 500.4100, L100.0500, L500.2500 #### [facility] [address] [place], [address] CBC-Complete Blood Cnt No Di ffon 09-11-2024 Erythrocyte distribution width (RBC) [Ratio] 12.8 % Normal 11.6-14.6 [facility] Comment on above: Performed By: #### L 500.4100, L100.0500, L500.2500 #### [facility] [address] [place], [address] Hematocrit (Bld) [Volume fraction] 39.7 % Normal 37-47 [facility] Comment on above: Performed By: #### L 500.4100, L100.0500, L500.2500 #### [facility] [address] [place], [address] Hemoglobin (Bld) [Mass/Vol] 13.1 g/dL Normal 12.0-15.0 [facility] Comment on above: Performed By: #### L 500.4100, L100.0500, L500.2500 #### [facility] [address] [place], [address] MCH (RBC) [Entitic mass] 30.3 pg Normal 27.0-32.0 [facility] Comment on above: Performed By: #### L 500.4100, L100.0500, L500.2500 #### [facility] [address] [place], [address] MCHC (RBC) [Mass/Vol] 33.0 g/dL Normal 32-36 [facility] Comment on above: Performed By: #### L 500.4100, L100.0500, L500.2500 #### [facility] [address] [place], [address] MCV (RBC) [Entitic vol] 91.7 fL Normal 81-99 [facility] Comment on above: Performed By: #### L 500.4100, L100.0500, L500.2500 #### [facility] [address] [place], [address] Platelet mean volume (Bld) [Entitic vol] 10.7 fL Normal 6.2-12.0 [facility] Comment on above: Performed By: #### L 500.4100, L100.0500, L500.2500 #### [facility] [address] [place], [address] Platelets (Bld) [#/Vol] 271 10*3/uL Normal 150-450 [facility] Comment on above: Performed By: #### L 500.4100, L100.0500, L500.2500 #### [facility] [address] [place], [address] RBC (Bld) [#/Vol] 4.33 10*6/uL Normal 4.2-5.4 [facility] Comment on above: Performed By: #### L 500.4100, L100.0500, L500.2500 #### [facility] [address] [place], [address] RDW SD 42.8 fl Normal 35.1-43.9 [facility] Comment on above: Performed By: #### L 500.4100, L100.0500, L500.2500 #### [facility] [address] [place], [address] WBC (Bld) [#/Vol] 12.2 10*3/uL High 4.4-11.0 [facility] Comment on above: Performed By: #### L 500.4100, L100.0500, L500.2500 #### [facility] [address] [place], [address] Calculated very low density lipoprotein (VLDL) cholesterol measurementOrdered By: Matthew Oro on 09-11-2024 Calculated very low density lipoprotein (VLDL) cholesterol measurement 16 mg/dL 5-40 [facility] Carbon dioxide, total [Moles /volume] in Central venous bloodOrdered By: Matthew Oro on 09-11-2024 CO2 [Moles/Vol] 21.6 mmol/L 21.0-32.0 [facility] Chloride assayOrdered By: Urban Oro on 09-11-2024 Chloride [Moles/Vol] 105 mmol/L 98-108 [facility] Discharge Instructionon 08-29 Discharge Instruction [facility] Medical Records Department [address] [place] [address] Instructions for Home/Discharge Instructions 09/11/24 1214 MR#: [id number] Acct: [id number] Name: EZRA GONZALEZ Rep #: [id number] : 1935 89 From: Matthew Oro DO PCP: Dr. Kvng Ochoa, DO Status:ADM MARIELOS Discharge Instructions Diet [...] Attending Provider: Matthew Oro Primary Care Provider: Kvng Ochoa Consulting Providers: Olivia Trinidad; Janett French; [...] or as directed Referrals / Follow Up: Kvng Ochoa DO [Primary Care Provider] - Disposition [...] Graves MD; Dr. Castillo Jones MD; Dr. Kvng Ochoa DO; Dr. Daniel Leroy MD; Dr. Cindy Horn MD; Meagan Edmondson MD; Keyshawn Swan MD; Cara Batista DO; Robinson Mayorga MD; Aura Thurman DO; Ashu Leonard MD Signed Normal [facility] Electroencephalogramon 09-11 Electroencephalogram [facility] Services/Neurology [address] [place] [address] MR#: [id number] Acct: [id number] Name: ZERA GONZALEZ Rep #: [id number] : 1935 89 From: Castillo Jones MD Referring Dr: Status: ADM MARIELOS Location: [place] [address] Date: 09/10/24 Sex: F C EEG Results Procedure Details EEG Procedure Details: Inpatient routine EEG report performed at [facility] Study start time: 1326 on 09/11/24 [...] Oro DO; Dr. Castillo Jones MD; Dr. Kvng Ochoa DO Date Dictated: 09/11/241501 Date Transcribed: 09/11/241501 [employer] Assistant Teacher: [place] Signed Normal [facility] Erythrocyte distribution wid th ratioOrdered By: Matthew Oro on 09-11-2024 Erythrocyte distribution width (RBC) [Ratio] 12.8 % 11.6-14.6 [facility] Erythrocyte distribution wid th standard deviationOrdered By: Matthew Oro on 09-11-2024 Erythrocyte distribution width (RBC) [Ratio] 42.8 fl 35.1-43.9 [facility] Glomerular filtration rate ( GFR) estimation/1.73 sq m using serum, plasma, or whole bOrdered By: Matthew Oro on 09-11-2024 GFR/1.73 sq M.predicted among non-blacks MDRD (S/P/Bld) [Vol rate/Area] 61 mL/min/{1.73_m2} >60 [facility] Comment on above: mL/min/1.73m2 CKD-EP I Creatinine Equation (2020) Hematocrit Auto (Bld) [Volum e fraction]Ordered By: Matthew Oro on 09-11-2024 Hematocrit (Bld) [Volume fraction] 39.7 % 37-47 [facility] Hemoglobin measurementOrdere d By: Matthew Oro on 09-11-2024 Hemoglobin (Bld) [Mass/Vol] 13.1 g/dL 12.0-15.0 [facility] LDL calc ser/plasOrdered By: Matthew Oro on 09-11-2024 Cholesterol in LDL [Mass/Vol] 100 mg/dL [facility] Comment on above: Cilfbdsjon=852-968 m g/dL & Higher Zftg=495 mg/dL or greater Lipid Profileon 09-11-2024 CHOL:HDL 3.03 Normal [facility] Comment on above: Order Comment: Comme nts: NPO at [place] prior to lipid panel Performed By: #### L 500.4100, L100.0500, L500.2500 #### [facility] [address] [place], [place], [id number] (858) Cholesterol [Mass/Vol] 172 mg/dL Normal <=200 [facility] Comment on above: Order Comment: Comme nts: NPO at [place] prior to lipid panel Result Comment: Chol esterol level, Desirable <200 mg/dL Borderline high cholesterol 200-239 mg/dL High cholesterol >=240 mg/dL Recommendations of the NCEP Adult Treatment Panel for the following risk-cutoff thresholds for the [place] population. Performed By: #### L 500.4100, L100.0500, L500.2500 #### [facility] [address] [place], [place], [address] (179) Cholesterol in HDL [Mass/Vol] 57 mg/dL Normal [facility] Comment on above: Order Comment: [...] By: #### L 500.4100, L100.0500, L500.2500 #### [facility] [address] [place], [address] Cholesterol in LDL [Mass/Vol] 100 mg/dL Normal [facility] Comment on above: Order Comment: Comme nts: NPO at [place] prior to lipid panel Result Comment: Bord emnlps=071-578 mg/dL Higher Jicv=651 mg/dL or greater Performed By: #### L 500.4100, L100.0500, L500.2500 #### [facility] [address] [place], [address] Cholesterol in VLDL [Mass/Vol] 16 mg/dL Normal 5-40 [facility] Comment on above: Order Comment: Comme nts: NPO at [place] prior to lipid panel Performed By: #### L 500.4100, L100.0500, L500.2500 #### [facility] [address] [place], [address] Triglyceride [Mass/Vol] 78 mg/dL Normal [facility] Comment on above: Order Comment: Comme nts: NPO at [place] prior to lipid panel Result Comment: The drugs N-Acetylcysteine and Metamizole may falsely depress this assay. Normal range: <150 mg/dL Borderline High: 150-199 mg/dL High: 200-499 mg/dL Very High: >500 mg/dL Performed By: #### L 500.4100, L100.0500, L500.2500 #### [facility] [address] [place], [address] MCV (mean corpuscular volume ) determinationOrdered By: Matthew Oro on 09-11-2024 MCV (RBC) [Entitic vol] 91.7 fL 81-99 [facility] Mean corpuscular hemoglobin (MCH) determinationOrdered By: Matthew Oro on 09-11-2024 MCH (RBC) [Entitic mass] 30.3 pg 27.0-32.0 [facility] Mean corpuscular hemoglobin concentration (MCHC) determinationOrdered By: Matthew Oro on 09-11-2024 MCHC (RBC) [Mass/Vol] 33.0 g/dL 32-36 [facility] Mean platelet volume determi nationOrdered By: Matthew Oro on 09-11-2024 Platelet mean volume (Bld) [Entitic vol] 10.7 fL 6.2-12.0 [facility] Platelet countOrdered By: Urban Oro on 09-11-2024 Platelets (Bld) [#/Vol] 271 10*3/uL 150-450 [facility] Potassium measurement (mass/ volume)Ordered By: Matthew Oro on 09-11-2024 Potassium (Unsp spec) [Mass/Vol] 4.4 mmol/L 3.3-5.1 [facility] RBC Auto (Bld) [#/Vol]Ordere d By: Matthew Oro on 09-11-2024 RBC (Bld) [#/Vol] 4.33 10*6/uL 4.2-5.4 [facility] Screening total cholesterol/ high density lipoprotein (HDL) cholesterol ratioOrdered By: Matthew Oro on 09-11-2024 Cholesterol.total/Cholest felipe in HDL [Mass ratio] 3.03 {ratio} [facility] Serum creatinine measurement (mass/volume)Ordered By: Matthew Oro on 09-11-2024 Creatinine [Mass/Vol] 0.91 mg/dL 0.70-1.20 [facility] Serum glucose measurement (m ass/volume)Ordered By: Matthew Oro on 09-11-2024 Glucose [Mass/Vol] 118 mg/dL High 70-99 [facility] Serum or plasma calcium viktoria urement (mass/volume)Ordered By: Matthew Oro on 09-11-2024 Calcium [Mass/Vol] 8.8 mg/dL 7.6-11.0 [facility] Serum or plasma cholesterol in HDL measurement (mass/volume)Ordered By: Matthew Oro on 09-11-2024 Cholesterol in HDL [Mass/Vol] 57 mg/dL >40 [facility] Comment on above: National Cholesterol Education Program (NCEP) guidelines:<40 mg/dL: Low HDL-cholesterol (major risk factor for CHD)>= 60 mg/dL: High HDL-cholesterol (negative risk factor for CHD)HDL-cholesterol is affected by a number of factors, e.g. smoking, exercise, hormones, sex and age. Serum or plasma cholesterol measurement (mass/volume)Ordered By: Matthew Oro on 09-11-2024 Cholesterol [Mass/Vol] 172 mg/dL <201 [facility] Comment on above: Cholesterol level, D esirable <200 mg/dLBorderline high cholesterol 200-239 mg/dLHigh cholesterol >=240 mg/dLRecommendations of the NCEP Adult Treatment Panel for the following risk-cutoff thresholds for the [place] population. Serum or plasma urea nitroge n measurement (mass/volume)Ordered By: Matthew Oro on 09-11-2024 Urea nitrogen [Mass/Vol] 28 mg/dL High 4-19 [facility] Sodium levelOrdered By: All Oro on 09-11-2024 Sodium [Moles/Vol] 139 mmol/L 133-145 [facility] Triglycerides measurementOrd ered By: Matthew rOo on 09-11-2024 Triglyceride [Mass/Vol] 78 mg/dL <199 [facility] Comment on above: The drugs N-Acetylcy steine and Metamizole may falsely depress this assay. Normal range: <150 mg/dLBorderline High: 150-199 mg/dLHigh: 200-499 mg/dLVery High: >500 mg/dL White blood cell (WBC) count Ordered By: Matthew Oro on 09-11-2024 WBC (Bld) [#/Vol] 12.2 10*3/uL High 4.4-11.0 [facility] Absolute lymphocyte countOrd ered By: Teri Garcia on 09-10-2024 Lymphocytes Auto (Unsp spec) [#/Vol] 1.91 10*3/uL 0.83-4.51 [facility] Absolute neutrophil countOrd ered By: Teri Garcia on 09-10-2024 Neutrophils (Bld) [#/Vol] 8.3 10*3/uL High 2.0-7.7 [facility] Activated partial thrombopla stin time (aPTT) in platelet poor plasma by coagulation aOrdered By: Teri Garcia on 09-10-2024 aPTT Coag (PPP) [Time] 31.8 s 24.1-36.2 [facility] Anion gap in Serum or Plasma Ordered By: Teri Garcia on 09-10-2024 Anion gap [Moles/Vol] 12 mmol/L 5-15 [facility] Automated lymphocyte count a s percentage of total leukocytesOrdered By: Teri Garcia on 09-10-2024 Lymphocytes/100 WBC Auto (Unsp spec) 16.6 % Low 19-41 [facility] BUN/creatinine ratioOrdered By: Teri Garcia on 09-10-2024 Urea nitrogen/Creatinine [Mass ratio] 34.8 mg/mg High 10-20 [facility] Basic Metabolic Profile (BMP )on 09-10-2024 BUN/CRE 34.8 RATIO High -20 [facility] Comment on above: Performed By: #### L 500.2500, L100.0100, L501.4021, L300.3900, L300.4310 ####[facility] [address] [place], [address] Calcium [Mass/Vol] 8.7 mg/dL Normal 7.6-11.0 [facility] Comment on above: Performed By: #### L 500.2500, L100.0100, L501.4021, L300.3900, L300.4310 ####[facility] [address] [place], [address] Chloride [Moles/Vol] 103 mmol/L Normal 98-108 [facility] Comment on above: Performed By: #### L 500.2500, L100.0100, L501.4021, L300.3900, L300.4310 ####[facility] [address] [place], [address] CO2 [Moles/Vol] 21.8 mmol/L Normal 21.0-32.0 [facility] Comment on above: Performed By: #### L 500.2500, L100.0100, L501.4021, L300.3900, L300.4310 ####[facility] [address] [place], [address] Creatinine [Mass/Vol] 1.05 mg/dL Normal 0.70-1.20 [facility] Comment on above: Performed By: #### L 500.2500, L100.0100, L501.4021, L300.3900, L300.4310 ####[facility] [address] [place], [address] ECRCL 33.63 ml/min Low 50-250 [facility] Comment on above: Performed By: #### L 500.2500, L100.0100, L501.4021, L300.3900, L300.4310 ####[facility] [address] [place], [address] GAP 12 Normal 5-15 [facility] Comment on above: Performed By: #### L 500.2500, L100.0100, L501.4021, L300.3900, L300.4310 ####[facility] [address] [place], [address] GFR/1.73 sq M.predicted among non-blacks MDRD (S/P/Bld) [Vol rate/Area] 51 mL/min/{1.73_m2} Low >60 [facility] Comment on above: Result Comment: mL/m in/1.73m2 CKD-EPI Creatinine Equation (2020) Performed By: #### L 500.2500, L100.0100, L501.4021, L300.3900, L300.4310 ####[facility] [address] [place], [address] Glucose [Mass/Vol] 131 mg/dL High 70-99 [facility] Comment on above: Performed By: #### L 500.2500, L100.0100, L501.4021, L300.3900, L300.4310 ####[facility] [address] [place], [address] Potassium [Moles/Vol] 4.4 mmol/L Normal 3.3-5.1 [facility] Comment on above: Result Comment: Hemo lysis present, Results??could be affected. ?? Performed By: #### L 500.2500, L100.0100, L501.4021, L300.3900, L300.4310 ####[facility] [address] [place], [address] Sodium [Moles/Vol] 137 mmol/L Normal 133-145 [facility] Comment on above: Performed By: #### L 500.2500, L100.0100, L501.4021, L300.3900, L300.4310 ####[facility] [address] [place], [address] Urea nitrogen [Mass/Vol] 37 mg/dL High 4-19 [facility] Comment on above: Performed By: #### L 500.2500, L100.0100, L501.4021, L300.3900, L300.4310 ####[facility] [address] [place], [address] Basophil percentageOrdered B y: Teri Garcia on 09-10-2024 Basophils/100 WBC (Bld) 0.4 % 0-1 [facility] Bilirubin Test strip Ql (U)O rdered By: Teri Garcia on 09-10-2024 Bilirubin Ql (U) Negative Negative [facility] Brain without Contraston Brain without Contrast [facility] Imaging Services [address] [place] [address] Brain without Contrast MR#: [id number] Acct: [id number] Name: EZRA GONZALEZ Rep #: [id number] : 1935 F 89 From: Matthias Márquez MD PCP: Dr. Kvng Ochoa, DO Status: ADM MARIELOS Study: Brain without Contrast Date of Exam: 09/10/24 Exam# [id number] Ordering Dr: Matthew Oro DO PROCEDURE: BRAIN [...] Atrophy and mild microvascular changes [facility] CC: Dr. Matthew Oro, DO; Dr. Kvng Ochoa, DO [employer] Assistant Teacher: Signed Normal [facility] CBC W/Diff, Automatedon 08-29 Absolute Lymph 1.91 X10 3/uL Normal 0.83-4.51 [facility] Comment on above: Performed By: #### L 500.2500, L100.0100, L501.4021, L300.3900, L300.4310 ####[facility] [address] [place], [address] Absolute Neut 8.3 X10 3/uL High 2.0-7.7 [facility] Comment on above: Performed By: #### L 500.2500, L100.0100, L501.4021, L300.3900, L300.4310 ####[facility] [address] [place], [address] Basophils/100 WBC (Bld) 0.4 % Normal 0-1 [facility] Comment on above: Performed By: #### L 500.2500, L100.0100, L501.4021, L300.3900, L300.4310 ####[facility] [address] [place], [address] Eosinophils/100 WBC (Bld) 1.2 % Normal 0-5 [facility] Comment on above: Performed By: #### L 500.2500, L100.0100, L501.4021, L300.3900, L300.4310 ####[facility] [address] [place], [address] Erythrocyte distribution width (RBC) [Ratio] 13.2 % Normal 11.6-14.6 [facility] Comment on above: Performed By: #### L 500.2500, L100.0100, L501.4021, L300.3900, L300.4310 ####[facility] [address] [place], [address] Hematocrit (Bld) [Volume fraction] 41.7 % Normal 37-47 [facility] Comment on above: Performed By: #### L 500.2500, L100.0100, L501.4021, L300.3900, L300.4310 ####[facility] [address] [place], [address] Hemoglobin (Bld) [Mass/Vol] 13.6 g/dL Normal 12.0-15.0 [facility] Comment on above: Performed By: #### L 500.2500, L100.0100, L501.4021, L300.3900, L300.4310 ####[facility] [address] [place], [address] IG% 0.400 Normal 0.0-0.9 [facility] Comment on above: Result Comment: IG% - Immature Granulocytes (promyelocytes, myelocytes and metamyelocytes) > 1% indicates that a LEFT SHIFT is Present. Performed By: #### L 500.2500, L100.0100, L501.4021, L300.3900, L300.4310 ####[facility] [address] [place], [address] Lymphocytes/100 WBC (Bld) 16.6 % Low 19-41 [facility] Comment on above: Performed By: #### L 500.2500, L100.0100, L501.4021, L300.3900, L300.4310 ####[facility] [address] [place], [address] MCH (RBC) [Entitic mass] 30.6 pg Normal 27.0-32.0 [facility] Comment on above: Performed By: #### L 500.2500, L100.0100, L501.4021, L300.3900, L300.4310 ####[facility] [address] [place], [address] MCHC (RBC) [Mass/Vol] 32.6 g/dL Normal 32-36 [facility] Comment on above: Performed By: #### L 500.2500, L100.0100, L501.4021, L300.3900, L300.4310 ####[facility] [address] [place], [address] MCV (RBC) [Entitic vol] 93.9 fL Normal 81-99 [facility] Comment on above: Performed By: #### L 500.2500, L100.0100, L501.4021, L300.3900, L300.4310 ####[facility] [address] [place], [address] Monocytes/100 WBC (Bld) 9.1 % Normal 0-10 [facility] Comment on above: Performed By: #### L 500.2500, L100.0100, L501.4021, L300.3900, L300.4310 ####[facility] [address] [place], [address] Neutrophils/100 WBC (Bld) 72.3 % High 47-70 [facility] Comment on above: Performed By: #### L 500.2500, L100.0100, L501.4021, L300.3900, L300.4310 ####[facility] [address] [place], [address] Nucleated RBC (Bld) [#/Vol] 0 10*3/uL Normal 0-5 [facility] Comment on above: Performed By: #### L 500.2500, L100.0100, L501.4021, L300.3900, L300.4310 ####[facility] [address] [place], [address] Platelet mean volume (Bld) [Entitic vol] 10.4 fL Normal 6.2-12.0 [facility] Comment on above: Performed By: #### L 500.2500, L100.0100, L501.4021, L300.3900, L300.4310 ####[facility] [address] [place], [address] Platelets (Bld) [#/Vol] 269 10*3/uL Normal 150-450 [facility] Comment on above: Performed By: #### L 500.2500, L100.0100, L501.4021, L300.3900, L300.4310 ####[facility] [address] [place], [address] RBC (Bld) [#/Vol] 4.44 10*6/uL Normal 4.2-5.4 [facility] Comment on above: Performed By: #### L 500.2500, L100.0100, L501.4021, L300.3900, L300.4310 ####[facility] [address] [place], [address] RDW SD 45.4 fl High 35.1-43.9 [facility] Comment on above: Performed By: #### L 500.2500, L100.0100, L501.4021, L300.3900, L300.4310 ####[facility] [address] [place], [address] WBC (Bld) [#/Vol] 11.5 10*3/uL High 4.4-11.0 [facility] Comment on above: Performed By: #### L 500.2500, L100.0100, L501.4021, L300.3900, L300.4310 ####[facility] [address] [place], [address] Carbon dioxide, total [Moles /volume] in Central venous bloodOrdered By: Teri Garcia on 09-10-2024 CO2 [Moles/Vol] 21.8 mmol/L 21.0-32.0 [facility] Chloride assayOrdered By: Antonio Garcia on 09-10-2024 Chloride [Moles/Vol] 103 mmol/L 98-108 [facility] Emergency Department Summary on 09-10-2024 Emergency Department Summary [facility] Medical Records Department [address] [place] [address] Emergency Department Summary 09/10/24 MR#: [id number] Acct: [id number] Name: EZRA GONZALEZ Rep #: [id number] : 1935 89 From: Teri Garcia DO PCP: Dr. Kvng Ochoa, Status:REG ER Location: ED HPI History of [...] son Wilfredo (her eldest son) phone number [phone]. He states that she follows with Dr. Juarez (neurology) and he suspects that this could be epileptic episodes. He also tells me that he talk to her about 615 this morning and she seemed a little off with her mentation as well as her pronunciation. 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 Normal [facility] Eosinophil percentageOrdered By: Teri Garcia on 09-10-2024 Eosinophils/100 WBC (Bld) 1.2 % 0-5 [facility] Erythrocyte distribution wid th ratioOrdered By: Teri Garcia on 09-10-2024 Erythrocyte distribution width (RBC) [Ratio] 13.2 % 11.6-14.6 [facility] Erythrocyte distribution wid th standard deviationOrdered By: Teri Garcia on 09-10-2024 Erythrocyte distribution width (RBC) [Ratio] 45.4 fl High 35.1-43.9 [facility] Glomerular filtration rate ( GFR) estimation/1.73 sq m using serum, plasma, or whole bOrdered By: Teri Garcia on 09-10-2024 GFR/1.73 sq M.predicted among non-blacks MDRD (S/P/Bld) [Vol rate/Area] 51 mL/min/{1.73_m2} Low >60 [facility] Comment on above: mL/min/1.73m2 CKD-EP I Creatinine Equation (2020) H AND P Exam - [facility] 09-10-2024 H&P Exam - Hospitalist [facility] Medical Records Department [address] [place] [address] H P Exam - Hospitalist 09/10/24 1603 MR#: [id number] Acct: [id number] Name: EZRA GONZALEZ Rep #: [id number] : 1935 89 From: Matthew Oro DO PCP: Dr. Kvng Ochoa, Status:ADM MARIELOS Location: [place] [address] HPI - General General Date of Admission: 09/10/24 Date of Service: 09/10/24 Chief Complaint: Dysarthria HPI Narrative EZRA GONZALEZ, is a 89 F who presented to [facility] ED on 09/10/2024 with dysarthria. Patient lives at assisted living at [place]. Has history of seizures and is on Lamictal. She follows with Dr. Juarez with neurology. Developed acute onset dysarthria today at noon. Has apparently had similar episodes like this in the past and Dr. Juarze suspects that they may be epileptic episodes. [...] any other acute concerns at this time. 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 Normal [facility] Hematocrit Auto (Bld) [Volum e fraction]Ordered By: Teri Garcia on 09-10-2024 Hematocrit (Bld) [Volume fraction] 41.7 % 37-47 [facility] Hemoglobin measurementOrdere d By: Teri Garcia on 09-10-2024 Hemoglobin (Bld) [Mass/Vol] 13.6 g/dL 12.0-15.0 [facility] Immature granulocytes/100 WB C Auto (Bld)Ordered By: Teri Garcia on 09-10-2024 Immature granulocytes/100 WBC (Bld) 0.400 % 0.0-0.9 [facility] Comment on above: IG% - Immature Granu locytes (promyelocytes, myelocytes and metamyelocytes) > 1% indicates that a LEFT SHIFT is Present. International normalized rat io (INR) calculationOrdered By: Teri Garcia on 09-10-2024 INR Coag (Bld) [Relative time] 2.4 {INR} [facility] Ketones Test strip Ql (U)Ord ered By: Teri Garcia on 09-10-2024 Ketones Ql (U) Negative Negative [facility] L499.0042on 09-10-2024 Trop T High Sen 17 ng/L High <=14 [facility] Comment on above: Performed By: #### L 499.0042 #### [facility] [address] [place], [address] L499.0043on 09-10-2024 Trop T High Sen 15 ng/L High <=14 [facility] Comment on above: Performed By: #### L 499.0043 #### [facility] [address] [place], [address] L501.4021on 09-10-2024 Trop T High Sen 18 ng/L High <=14 [facility] Comment on above: Performed By: #### L 500.2500, L100.0100, L501.4021, L300.3900, L300.4310 ####[facility] [address] [place], [address] MCV (mean corpuscular volume ) determinationOrdered By: Teri Garcia on 09-10-2024 MCV (RBC) [Entitic vol] 93.9 fL 81-99 [facility] Magnetic resonance imaging r eportOrdered By: Matthias Márquez on 09-10-2024 Study report [facility] Imaging Services [address] [place], [place] [address] Brain without Contrast MR#: [id number] Acct: [id number] Name: EZRA GONZALEZ Rep #: [id number] : 1935 F 89 From: Bill Márquez MD PCP: Dr. Kvng Ochoa, DO Status: ADM MARIELOS Study:Brain without Contrast Date of Exam: 09/10/24 Exam# [id number] Ordering Dr: Matthew Patel DO PROCEDURE: BRAIN [...] Atrophy and mild microvascular changes Reading Location: [facility] CC: Dr. Matthew Oro, ; Dr. Kvng Ochoa DO ~ [employer] Assistant Teacher: Signed [facility] Mean corpuscular hemoglobin (MCH) determinationOrdered By: Teri Garcia on 09-10-2024 MCH (RBC) [Entitic mass] 30.6 pg 27.0-32.0 [facility] Mean corpuscular hemoglobin concentration (MCHC) determinationOrdered By: Teri Garcia on 09-10-2024 MCHC (RBC) [Mass/Vol] 32.6 g/dL 32-36 [facility] Mean platelet volume determi nationOrdered By: Teri Garcia on 09-10-2024 Platelet mean volume (Bld) [Entitic vol] 10.4 fL 6.2-12.0 [facility] Microscopic analysis of urin e for red blood cells (RBC)Ordered By: Teri Garcia on 09-10-2024 Microscopic analysis of urine for red blood cells (RBC) 0 SEEN /hpf 0-5 [facility] Monocyte percentageOrdered B y: Teri Garcia on 09-10-2024 Monocytes/100 WBC (Bld) 9.1 % 0-10 [facility] Mucus LM Ql (Urine sed)Order ed By: Teri Garcia on 09-10-2024 Mucus Ql (Urine sed) 0 SEEN /hpf [facility] Neutrophil percentageOrdered By: Teri Garcia on 09-10-2024 Neutrophils/100 WBC (Bld) 72.3 % High 47-70 [facility] Nitrite Test strip Ql (U)Ord ered By: Teri Garcia on 09-10-2024 Nitrite Ql (U) Negative Negative [facility] Nucleated red blood cell per centageOrdered By: Teri Garcia on 09-10-2024 Nucleated RBC/100 WBC (Bld) [Ratio] 0 % 0-5 [facility] Partial Thromboplast Timeon 09-10-2024 aPTT Coag (Bld) [Time] 31.8 s Normal 24.1-36.2 [facility] Comment on above: Performed By: #### L 500.2500, L100.0100, L501.4021, L300.3900, L300.4310 ####[facility] [address] [place], [address] Platelet countOrdered By: Antonio Garcia on 09-10-2024 Platelets (Bld) [#/Vol] 269 10*3/uL 150-450 [facility] Potassium measurement (mass/ volume)Ordered By: Teri Garcia on 09-10-2024 Potassium (Unsp spec) [Mass/Vol] 4.4 mmol/L 3.3-5.1 [facility] Comment on above: Hemolysis present, R esults could be affected. Protein Test strip Ql (U)Ord ered By: Teri Garcia on 09-10-2024 Protein Ql (U) 30 mg/dl High Negative [facility] Prothrombin Time w/INRon INR Coag (PPP) [Relative time] 2.4 {INR} Normal [facility] Comment on above: Performed By: #### L 500.2500, L100.0100, L501.4021, L300.3900, L300.4310 ####[facility] [address] [place], [place], [id number] PT Coag (PPP) [Time] 26.4 s High 11.7-14.9 [facility] Comment on above: Performed By: #### L 500.2500, L100.0100, L501.4021, L300.3900, L300.4310 ####[facility] [address] [place], [address] Prothrombin timeOrdered By: Teri Garcia on 09-10-2024 PT Coag (PPP) [Time] 26.4 s High 11.7-14.9 [facility] RBC Auto (Bld) [#/Vol]Ordere d By: Teri Garcia on 09-10-2024 RBC (Bld) [#/Vol] 4.44 10*6/uL 4.2-5.4 [facility] STROKE Brain/Head without Co nton 09-10-2024 STROKE Brain/Head without Cont [facility] Imaging Services [address] [place] [address] STROKE Brain/Head without Cont MR#: [id number] Acct: [id number] Name: EZRA GONZALEZ Rep #: [id number] : 1935 F 89 From: Mio nayak MD PCP: Dr. Kvng Ochoa, DO Status: [facility] Study: STROKE Brain/Head without Cont Date of Exam: 0 09/10/24 Exam# [id number] Ordering Dr: Teri Garcia DO PROCEDURE: STROKE [...] 2:05 pm with readback verification. Reading Location: [facility] CC: Dr. Teri Garcia DO; Dr. Kvng Ochoa DO [employer] Assistant Teacher: Signed Normal [facility] STROKE CTA Head AND Neck W/C onon 09-10-2024 STROKE CTA Head AND Neck W/Con [facility] Imaging Services [address] [place], [place] [address] STROKE CTA Head AND Neck W/Con MR#: [id number] Acct: [id number] Name: EZRA GONZALEZ Rep #: [id number] : 1935 F 89 From: Mio nayak MD PCP: Dr. Kvng Ochoa DO Status: REG ER Study: STROKE CTA Head AND Neck W/Con Date of Exam: 0 09/10/24 Exam# [id number] Ordering Dr: Teri Garcia DO PROCEDURE: STROKE [...] RIGHT Vertebral: Unremarkable. LEFT Vertebral: Unremarkable. Anatomy: [place] anatomy is normal. Aneurysm or [...] 3:01 pm with readback verification. Reading Location: [id number] CC: Dr. Teri Garcia DO; Dr. Kvng Ochoa DO [employer] Assistant Teacher: Signed Normal [facility] Serum creatinine measurement (mass/volume)Ordered By: Teri Garcia on 09-10-2024 Creatinine [Mass/Vol] 1.05 mg/dL 0.70-1.20 [facility] Serum glucose measurement (m ass/volume)Ordered By: Teri Garcia on 09-10-2024 Glucose [Mass/Vol] 131 mg/dL High 70-99 [facility] Serum or plasma calcium viktoria urement (mass/volume)Ordered By: Teri Garcia on 09-10-2024 Calcium [Mass/Vol] 8.7 mg/dL 7.6-11.0 [facility] Serum or plasma urea nitroge n measurement (mass/volume)Ordered By: Teri Garcia on 09-10-2024 Urea nitrogen [Mass/Vol] 37 mg/dL High 4-19 [facility] Sodium levelOrdered By: Ollie Garcia on 09-10-2024 Sodium [Moles/Vol] 137 mmol/L 133-145 [facility] Squamous epithelial cells de tection in urine sediment by light microscopyOrdered By: Teri Garcia on 09-10-2024 Epithelial cells.squamous LM Ql (Urine sed) 0-5 SEEN /hpf 5-10 [facility] Troponin T.cardiac [Mass/vol ume] in Serum or Plasma by High sensitivity methodOrdered By: Teri Garcia on 09-10-2024 Troponin T.cardiac High sensitivity method [Mass/Vol] 15 ng/L High <14 [facility] Troponin T.cardiac High sensitivity method [Mass/Vol] 17 ng/L High <14 [facility] Troponin T.cardiac High sensitivity method [Mass/Vol] 18 ng/L High <14 [facility] Urinalysis, Completeon 09-10 BACTERIA RARE Normal None Seen [facility] Comment on above: Order Comment: RANDY CTOR TO SPECIFY Performed By: #### L 400.0001 ####[facility] [address] [facility] [address] EPI,SQUAMOUS 0-5 SEEN Normal 5-10 [facility] Comment on above: Order Comment: RANDY CTOR TO SPECIFY Performed By: #### L 400.0001 ####[facility] [address] [place], [address] WBC 10-25 SEEN Normal 0-5 [facility] Comment on above: Order Comment: RANDY CTOR TO SPECIFY Performed By: #### L 400.0001 ####[facility] [address] [place], [address] Mucus Ql (Urine sed) 0 SEEN Normal [facility] Comment on above: Order Comment: RANDY CTOR TO SPECIFY Performed By: #### L 400.0001 ####[facility] [address] [place], [address] RBC 0 SEEN Normal 0-5 [facility] Comment on above: Order Comment: RANDY CTOR TO SPECIFY Performed By: #### L 400.0001 ####[facility] [address] [place], [address] Urine clarityOrdered By: Lashaun Garcia on 09-10-2024 Clarity (U) Clear Clear [facility] Urine color determinationOrd ered By: Teri Garcia on 09-10-2024 Color (U) Straw Yellow [facility] Urine cultureOrdered By: Lashaun Garcia on 09-10-2024 Bacteria identified Cx Nom (U) Klebsiella pneumoniae sp pneum Abnormal [facility] Urine glucose detectionOrder ed By: Teri Garcia on 09-10-2024 Glucose Ql (U) Normal mg/dl Normal [facility] Urine leukocyte esterase det ection by dipstickOrdered By: Teri Garcia on 09-10-2024 Leukocyte esterase Test strip Ql (U) 500 /ul High Negative [facility] Urine pHOrdered By: Teri romero on 09-10-2024 pH (U) 5.0 [pH] 5.0 - 8.0 [facility] Urine sediment bacteria coun t by microscopy (number/high power field)Ordered By: Teri Garcia on 09-10-2024 Bacteria LM.HPF (Urine sed) [#/Area] RARE /hpf None Seen [facility] Urine specific gravity measu rementOrdered By: Teri Garcia on 09-10-2024 Specific gravity (U) [Rel density] 1.010 1.002-1.030 [facility] Urine urobilinogen measureme ntOrdered By: Teri Garcia on 09-10-2024 Urobilinogen Ql (U) Normal mg/dl Normal [facility] White blood cell (WBC) count Ordered By: Teri aGrcia on 09-10-2024 WBC (Bld) [#/Vol] 11.5 10*3/uL High 4.4-11.0 [facility] White blood cell countOrdere d By: Teri Garcia on 09-10-2024 White blood cell count 10-25 SEEN /hpf 0-5 [facility] Absolute lymphocyte countOrd ered By: Anoop Blackmon on 09-08-2024 Lymphocytes Auto (Unsp spec) [#/Vol] 2.21 10*3/uL 0.83-4.51 [facility] Absolute neutrophil countOrd ered By: Anooppierce Blackmon on 09-08-2024 Neutrophils (Bld) [#/Vol] 10.3 10*3/uL High 2.0-7.7 [facility] Anion gap in Serum or Plasma Ordered By: Anooppierce Blackmon on 09-08-2024 Anion gap [Moles/Vol] 11 mmol/L 5-15 [facility] Automated lymphocyte count a s percentage of total leukocytesOrdered By: Anoop Blackmon on 09-08-2024 Lymphocytes/100 WBC Auto (Unsp spec) 16.2 % Low 19-41 [facility] BUN/creatinine ratioOrdered By: Anooppierce Blackmon on 09-08-2024 Urea nitrogen/Creatinine [Mass ratio] 35.2 mg/mg High 10-20 [facility] Basic Metabolic Profile (BMP )on 09-08-2024 BUN/CRE 35.2 RATIO High - [facility] Comment on above: Performed By: #### L 100.0100, L500.2500, L300.3900, L3300.4400 ####[facility] [address] [place], [address] Calcium [Mass/Vol] 8.9 mg/dL Normal 7.6-11.0 [facility] Comment on above: Performed By: #### L 100.0100, L500.2500, L300.3900, L3300.4400 ####[facility] [address] [place], [address] Chloride [Moles/Vol] 105 mmol/L Normal 98-108 [facility] Comment on above: Performed By: #### L 100.0100, L500.2500, L300.3900, L3300.4400 ####[facility] [address] [place], [address] CO2 [Moles/Vol] 22.4 mmol/L Normal 21.0-32.0 [facility] Comment on above: Performed By: #### L 100.0100, L500.2500, L300.3900, L3300.4400 ####[facility] [address] [place], [address] Creatinine [Mass/Vol] 1.00 mg/dL Normal 0.70-1.20 [facility] Comment on above: Performed By: #### L 100.0100, L500.2500, L300.3900, L3300.4400 ####[facility] [address] [place], [address] ECRCL 39.57 ml/min Low 50-250 [facility] Comment on above: Performed By: #### L 100.0100, L500.2500, L300.3900, L3300.4400 ####[facility] [address] [place], [address] GAP 11 Normal 5-15 [facility] Comment on above: Performed By: #### L 100.0100, L500.2500, L300.3900, L3300.4400 ####[facility] [address] [place], [address] GFR/1.73 sq M.predicted among non-blacks MDRD (S/P/Bld) [Vol rate/Area] 54 mL/min/{1.73_m2} Low >60 [facility] Comment on above: Result Comment: mL/m in/1.73m2 CKD-EPI Creatinine Equation (2020) Performed By: #### L 100.0100, L500.2500, L300.3900, L3300.4400 ####[facility] [address] [place], [address] Glucose [Mass/Vol] 149 mg/dL High 70-99 [facility] Comment on above: Performed By: #### L 100.0100, L500.2500, L300.3900, L3300.4400 ####[facility] [address] [place], [address] Potassium [Moles/Vol] 4.7 mmol/L Normal 3.3-5.1 [facility] Comment on above: Performed By: #### L 100.0100, L500.2500, L300.3900, L3300.4400 ####[facility] [address] [place], [address] Sodium [Moles/Vol] 138 mmol/L Normal 133-145 [facility] Comment on above: Performed By: #### L 100.0100, L500.2500, L300.3900, L3300.4400 ####[facility] [address] [place], [address] Urea nitrogen [Mass/Vol] 35 mg/dL High 4-19 [facility] Comment on above: Performed By: #### L 100.0100, L500.2500, L300.3900, L3300.4400 ####[facility] [address] [place], [address] Basophil percentageOrdered B y: Anoop Blackmon on 09-08-2024 Basophils/100 WBC (Bld) 0.2 % 0-1 [facility] CBC W/Diff, Automatedon 08-29 Absolute Lymph 2.21 X10 3/uL Normal 0.83-4.51 [facility] Comment on above: Performed By: #### L 100.0100, L500.2500, L300.3900, L3300.4400 #### [facility] [address] [place], [address] Absolute Neut 10.3 X10 3/uL High 2.0-7.7 [facility] Comment on above: Performed By: #### L 100.0100, L500.2500, L300.3900, L3300.4400 #### [facility] [address] [place], [address] Basophils/100 WBC (Bld) 0.2 % Normal 0-1 [facility] Comment on above: Performed By: #### L 100.0100, L500.2500, L300.3900, L3300.4400 #### [facility] [address] [place] [place], [address] Eosinophils/100 WBC (Bld) 0.7 % Normal 0-5 [facility] Comment on above: Performed By: #### L 100.0100, L500.2500, L300.3900, L3300.4400 #### [facility] [address] [place], [address] Erythrocyte distribution width (RBC) [Ratio] 13.2 % Normal 11.6-14.6 [facility] Comment on above: Performed By: #### L 100.0100, L500.2500, L300.3900, L3300.4400 #### [facility] [address] [place], [address] Hematocrit (Bld) [Volume fraction] 41.4 % Normal 37-47 [facility] Comment on above: Performed By: #### L 100.0100, L500.2500, L300.3900, L3300.4400 #### [facility] [address] [place], [address] Hemoglobin (Bld) [Mass/Vol] 13.8 g/dL Normal 12.0-15.0 [facility] Comment on above: Performed By: #### L 100.0100, L500.2500, L300.3900, L3300.4400 #### [facility] [address] [place], [address] IG% 0.400 Normal 0.0-0.9 [facility] Comment on above: Result Comment: IG% - Immature Granulocytes (promyelocytes, myelocytes and metamyelocytes) > 1% indicates that a LEFT SHIFT is Present. Performed By: #### L 100.0100, L500.2500, L300.3900, L3300.4400 #### [facility] [address] [place], [address] Lymphocytes/100 WBC (Bld) 16.2 % Low 19-41 [facility] Comment on above: Performed By: #### L 100.0100, L500.2500, L300.3900, L3300.4400 #### [facility] [address] [place], [address] MCH (RBC) [Entitic mass] 31.4 pg Normal 27.0-32.0 [facility] Comment on above: Performed By: #### L 100.0100, L500.2500, L300.3900, L3300.4400 #### [facility] [address] [place], [address] MCHC (RBC) [Mass/Vol] 33.3 g/dL Normal 32-36 [facility] Comment on above: Performed By: #### L 100.0100, L500.2500, L300.3900, L3300.4400 #### [facility] [address] [place], [address] MCV (RBC) [Entitic vol] 94.1 fL Normal 81-99 [facility] Comment on above: Performed By: #### L 100.0100, L500.2500, L300.3900, L3300.4400 #### [facility] [address] [place], [address] Monocytes/100 WBC (Bld) 6.6 % Normal 0-10 [facility] Comment on above: Performed By: #### L 100.0100, L500.2500, L300.3900, L3300.4400 #### [facility] [address] [place], [address] Neutrophils/100 WBC (Bld) 75.9 % High 47-70 [facility] Comment on above: Performed By: #### L 100.0100, L500.2500, L300.3900, L3300.4400 #### [facility] [address] [place], [address] Nucleated RBC (Bld) [#/Vol] 0 10*3/uL Normal 0-5 [facility] Comment on above: Performed By: #### L 100.0100, L500.2500, L300.3900, L3300.4400 #### [facility] [address] [place], [address] Platelet mean volume (Bld) [Entitic vol] 10.8 fL Normal 6.2-12.0 [facility] Comment on above: Performed By: #### L 100.0100, L500.2500, L300.3900, L3300.4400 #### [facility] [address] [place], [address] Platelets (Bld) [#/Vol] 326 10*3/uL Normal 150-450 [facility] Comment on above: Performed By: #### L 100.0100, L500.2500, L300.3900, L3300.4400 #### [facility] [address] [place], [address] RBC (Bld) [#/Vol] 4.40 10*6/uL Normal 4.2-5.4 [facility] Comment on above: Performed By: #### L 100.0100, L500.2500, L300.3900, L3300.4400 #### [facility] [address] [place], [address] RDW SD 45.2 fl High 35.1-43.9 [facility] Comment on above: Performed By: #### L 100.0100, L500.2500, L300.3900, L3300.4400 #### [facility] [address] [place], [address] WBC (Bld) [#/Vol] 13.6 10*3/uL High 4.4-11.0 [facility] Comment on above: Performed By: #### L 100.0100, L500.2500, L300.3900, L3300.4400 #### [facility] [address] [place], [address] Carbon dioxide, total [Moles /volume] in Central venous bloodOrdered By: Anoop Blackmon on 09-08-2024 CO2 [Moles/Vol] 22.4 mmol/L 21.0-32.0 [facility] Chloride assayOrdered By: Monserrat Blackmon on 09-08-2024 Chloride [Moles/Vol] 105 mmol/L 98-108 [facility] Emergency Department Summary on 09-08-2024 Emergency Department Summary [facility] Medical Records Department [address] [place] [address] Emergency Department Summary 09/08/24 MR#: [id number] Acct: [id number] Name: EZRA GONZALEZ Rep #: [id number] : 1935 89 From: Anoop Blackmon MD PCP: Dr. 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 Normal [facility] Eosinophil percentageOrdered By: Anoop Blackmon on 09-08-2024 Eosinophils/100 WBC (Bld) 0.7 % 0-5 [facility] Erythrocyte distribution wid th ratioOrdered By: Anoop Blackmon on 09-08-2024 Erythrocyte distribution width (RBC) [Ratio] 13.2 % 11.6-14.6 [facility] Erythrocyte distribution wid th standard deviationOrdered By: Anoop Blackmon on 09-08-2024 Erythrocyte distribution width (RBC) [Ratio] 45.2 fl High 35.1-43.9 [facility] Glomerular filtration rate ( GFR) estimation/1.73 sq m using serum, plasma, or whole bOrdered By: Anoop Blackmon on 09-08-2024 GFR/1.73 sq M.predicted among non-blacks MDRD (S/P/Bld) [Vol rate/Area] 54 mL/min/{1.73_m2} Low >60 [facility] Comment on above: mL/min/1.73m2 CKD-EP I Creatinine Equation (2020) Hematocrit Auto (Bld) [Volum e fraction]Ordered By: Anooppierce Blackmon on 09-08-2024 Hematocrit (Bld) [Volume fraction] 41.4 % 37-47 [facility] Hemoglobin measurementOrdere d By: Anooppierce Blackmon on 09-08-2024 Hemoglobin (Bld) [Mass/Vol] 13.8 g/dL 12.0-15.0 [facility] Immature granulocytes/100 WB C Auto (Bld)Ordered By: Anooppierce Blackmon on 09-08-2024 Immature granulocytes/100 WBC (Bld) 0.400 % 0.0-0.9 [facility] Comment on above: IG% - Immature Granu locytes (promyelocytes, myelocytes and metamyelocytes) > 1% indicates that a LEFT SHIFT is Present. International normalized rat io (INR) calculationOrdered By: Anooppierce Blackmon on 09-08-2024 INR Coag (Bld) [Relative time] 2.9 {INR} [facility] MCV (mean corpuscular volume ) determinationOrdered By: Anoop Blackmon on 09-08-2024 MCV (RBC) [Entitic vol] 94.1 fL 81-99 [facility] Mean corpuscular hemoglobin (MCH) determinationOrdered By: Anooppierce Blackmon on 09-08-2024 MCH (RBC) [Entitic mass] 31.4 pg 27.0-32.0 [facility] Mean corpuscular hemoglobin concentration (MCHC) determinationOrdered By: Anooppierce Blackmon on 09-08-2024 MCHC (RBC) [Mass/Vol] 33.3 g/dL 32-36 [facility] Mean platelet volume determi nationOrdered By: Anooppierce Blackmon on 09-08-2024 Platelet mean volume (Bld) [Entitic vol] 10.8 fL 6.2-12.0 [facility] Monocyte percentageOrdered B y: Anoop Blackmon on 09-08-2024 Monocytes/100 WBC (Bld) 6.6 % 0-10 [facility] Neutrophil percentageOrdered By: Anoop Blackmon on 09-08-2024 Neutrophils/100 WBC (Bld) 75.9 % High 47-70 [facility] Nucleated red blood cell per centageOrdered By: Anoop Blackmon on 09-08-2024 Nucleated RBC/100 WBC (Bld) [Ratio] 0 % 0-5 [facility] Platelet countOrdered By: Monserrat Blackmon on 09-08-2024 Platelets (Bld) [#/Vol] 326 10*3/uL 150-450 [facility] Potassium measurement (mass/ volume)Ordered By: Anoop Blackmon on 09-08-2024 Potassium (Unsp spec) [Mass/Vol] 4.7 mmol/L 3.3-5.1 [facility] Prothrombin Time w/INRon INR Coag (PPP) [Relative time] 2.9 {INR} Normal [facility] Comment on above: Performed By: #### L 100.0100, L500.2500, L300.3900, L3300.4400 ####[facility] [address] [place], [place], [phone] PT Coag (PPP) [Time] 30.7 s High 11.7-14.9 [facility] Comment on above: Performed By: #### L 100.0100, L500.2500, L300.3900, L3300.4400 ####[facility] [address] [place], [address] Prothrombin timeOrdered By: Anoop Blackmon on 09-08-2024 PT Coag (PPP) [Time] 30.7 s High 11.7-14.9 [facility] RBC Auto (Bld) [#/Vol]Ordere d By: Anoop Blackmon on 09-08-2024 RBC (Bld) [#/Vol] 4.40 10*6/uL 4.2-5.4 [facility] Serum creatinine measurement (mass/volume)Ordered By: Anoop Blackmon on 09-08-2024 Creatinine [Mass/Vol] 1.00 mg/dL 0.70-1.20 [facility] Serum glucose measurement (m ass/volume)Ordered By: Anoop Blackmon on 09-08-2024 Glucose [Mass/Vol] 149 mg/dL High 70-99 [facility] Serum or plasma calcium viktoria urement (mass/volume)Ordered By: Anoop Blackmon on 09-08-2024 Calcium [Mass/Vol] 8.9 mg/dL 7.6-11.0 [facility] Serum or plasma lamotrigine measurement (mass/volume)Ordered By: Anoop Blackmon on 09-08-2024 lamoTRIgine [Mass/Vol] 1.2 ug/mL Low 2.0-20.0 [facility] Comment on above: Detection Limit = 1. 0Performed at: [employer] [facility] [id number] Director: Brandon Wells MD, Phone: [phone] Serum or plasma urea nitroge n measurement (mass/volume)Ordered By: Anoop Blackmon on 09-08-2024 Urea nitrogen [Mass/Vol] 35 mg/dL High 4-19 [facility] Sodium levelOrdered By: Anooppierce Blackmon on 09-08-2024 Sodium [Moles/Vol] 138 mmol/L 133-145 [facility] White blood cell (WBC) count Ordered By: Anoop Blackmon on 09-08-2024 WBC (Bld) [#/Vol] 13.6 10*3/uL High 4.4-11.0 [facility] International normalized rat io (INR) calculationOrdered By: Cesar Douglas on 08-18-2024 INR Coag (Bld) [Relative time] 2.6 {INR} [facility] Prothrombin timeOrdered By: Cesar Douglas on 08-18-2024 PT Coag (PPP) [Time] 28.1 s High 11.7-14.9 [facility] International normalized rat io (INR) calculationOrdered By: Cesar Douglas on 07-19-2024 INR Coag (Bld) [Relative time] 2.2 {INR} [facility] Prothrombin timeOrdered By: Walford Douglas on 07-19-2024 PT Coag (PPP) [Time] 25.3 s High 11.7-14.9 [facility] Cardiology Visit Reporton Cardiology Visit Report [facility] [address] [place] [address] OFFICE VISIT Date of Service: 07/01/24 MR#: [id number] Acct: [id number] Name: EZRA GONZALEZ Rep #: [id number] : 1935 Provider: Dr. Cesar Cole MD [...] atrial fibrillation. She is a reside at [facility]. From a cardiac standpoint, patient is doing [...] Monitor Intake Visit Reasons: 1 Y [employer] Required: No Accompanied by: Self Is patient in pain?: No Allergies latex Allergy (Verified 07/01/24 10:44) rash amiodarone Adverse Reaction (Severe, Verified 07/01/24 10:44) Hair falling out in gobs" atorvastatin (From Lipitor) Adverse Reaction (Verified 07/01/24 [...] you fallen in the past year?: No [facility] Medical History Closed fracture of right distal humerus Longstanding persistent atrial fibrillation COVID-19 virus detected (11/2020) Fatigue Closed fracture of inferior pubic ramus Lumbar vertebral fracture History of ST elevation myocardial infarction (STEMI) (02/14/07) Chronic diastolic (congestive) heart failure 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 Normal [facility] normalized rat io (INR) calculationOrdered By: Kvng Ochoa on 06-16-2024 INR Coag (Bld) [Relative time] 2.4 {INR} [facility] Prothrombin timeOrdered By: Kvng Ochoa on 06-16-2024 PT Coag (PPP) [Time] 26.6 s High 11.7-14.9 [facility] Absolute lymphocyte countOrd ered By: Kvng Ochoa on 06-09-2024 Lymphocytes Auto (Unsp spec) [#/Vol] 2.06 10*3/uL 0.83-4.51 [facility] Absolute neutrophil countOrd ered By: Kvng Ochoa on 06-09-2024 Neutrophils (Bld) [#/Vol] 5.6 10*3/uL 2.0-7.7 [facility] Anion gap in Serum or Plasma Ordered By: Kvng Ochoa on 06-09-2024 Anion gap [Moles/Vol] 13 mmol/L 5-15 [facility] Automated lymphocyte count a s percentage of total leukocytesOrdered By: Kvng Ochoa on 06-09-2024 Lymphocytes/100 WBC Auto (Unsp spec) 23.0 % 19-41 [facility] BUN/creatinine ratioOrdered By: Kvng Ochoa on 06-09-2024 Urea nitrogen/Creatinine [Mass ratio] 21.5 mg/mg High 10-20 [facility] Basophil percentageOrdered B y: Kvng Ochoa on 06-09-2024 Basophils/100 WBC (Bld) 0.6 % 0-1 [facility] Carbon dioxide, total [Moles /volume] in Central venous bloodOrdered By: Kvng Ochoa on 06-09-2024 CO2 [Moles/Vol] 22.4 mmol/L 21.0-32.0 [facility] Chloride assayOrdered By: Costa Ochoa on 06-09-2024 Chloride [Moles/Vol] 108 mmol/L 98-108 [facility] Eosinophil percentageOrdered By: Kvng Ochoa on 06-09-2024 Eosinophils/100 WBC (Bld) 4.8 % 0-5 [facility] Erythrocyte distribution wid th ratioOrdered By: Kvng Ochoa on 06-09-2024 Erythrocyte distribution width (RBC) [Ratio] 14.6 % 11.6-14.6 [facility] Erythrocyte distribution wid th standard deviationOrdered By: Kvng Ochoa on 06-09-2024 Erythrocyte distribution width (RBC) [Entitic vol] 49.2 fL High 35.1-43.9 [facility] Erythrocyte distribution width (RBC) [Ratio] 49.2 fl High 35.1-43.9 [facility] GFR/1.73 sq M.predicted sonia g non-blacks MDRD (S/P/Bld) [Vol rate/Area]Ordered By: Kvng Ochoa on 06-09-2024 Estimated GFR (MDRD) Non-Af Amer 59 Low >60 [facility] Comment on above: mL/min/1.73m2 CKD-EP I Creatinine Equation (2020) Glomerular filtration rate ( GFR) estimation/1.73 sq m using serum, plasma, or whole bOrdered By: Kvng Ochoa on 06-09-2024 GFR/1.73 sq M.predicted among non-blacks MDRD (S/P/Bld) [Vol rate/Area] 59 mL/min/{1.73_m2} Low >60 [facility] Comment on above: mL/min/1.73m2 CKD-EP I Creatinine Equation (2020) Hematocrit Auto (Bld) [Volum e fraction]Ordered By: Kvng Ochoa on 06-09-2024 Hematocrit (Bld) [Volume fraction] 38.3 % 37-47 [facility] Hemoglobin A1c percentageOrd ered By: Kvng Ochoa on 06-09-2024 HbA1c (Bld) [Mass fraction] 6.5 % >5.7 [facility] Hemoglobin measurementOrdere d By: Kvng Ochoa on 06-09-2024 Hemoglobin (Bld) [Mass/Vol] 12.4 g/dL 12.0-15.0 [facility] Immature granulocytes/100 WB C Auto (Bld)Ordered By: Kvng Ochoa on 06-09-2024 Immature granulocytes/100 WBC (Bld) 0.200 % 0.0-0.9 [facility] Comment on above: IG% - Immature Granu locytes (promyelocytes, myelocytes and metamyelocytes) > 1% indicates that a LEFT SHIFT is Present. Lymphocytes Auto (Unsp spec) [#/Vol]Ordered By: Kvng Ochoa on 06-09-2024 Lymphocytes (Bld) [#/Vol] 2.06 10*3/uL 0.83-4.5 1 [facility] Lymphocytes/100 WBC Auto (Un sp spec)Ordered By: Kvng Ochoa on 06-09-2024 Lymphocytes/100 WBC (Bld) 23.0 % 19-41 [facility] MCV (mean corpuscular volume ) determinationOrdered By: Kvng Ochoa on 06-09-2024 MCV (RBC) [Entitic vol] 91.8 fL 81-99 [facility] Mean corpuscular hemoglobin (MCH) determinationOrdered By: Kvng Ochoa on 06-09-2024 MCH (RBC) [Entitic mass] 29.7 pg 27.0-32.0 [facility] Mean corpuscular hemoglobin concentration (MCHC) determinationOrdered By: Kvng Ochoa on 06-09-2024 MCHC (RBC) [Mass/Vol] 32.4 g/dL 32-36 [facility] Mean platelet volume determi nationOrdered By: Kvng Ochoa on 06-09-2024 Platelet mean volume (Bld) [Entitic vol] 10.2 fL 6.2-12.0 [facility] Monocyte percentageOrdered B y: Kvng Ochoa on 06-09-2024 Monocytes/100 WBC (Bld) 8.6 % 0-10 [facility] Neutrophil percentageOrdered By: Kvng Ochoa on 06-09-2024 Neutrophils/100 WBC (Bld) 62.8 % 47-70 [facility] Nucleated red blood cell per centageOrdered By: Kvng Ochoa on 06-09-2024 Nucleated RBC/100 WBC (Bld) [Ratio] 0 % 0-5 [facility] Platelet countOrdered By: Costa Ochoa on 06-09-2024 Platelets (Bld) [#/Vol] 323 10*3/uL 150-450 [facility] Potassium (Unsp spec) [Mass/ Vol]Ordered By: Kvng Ochoa on 06-09-2024 Potassium [Moles/Vol] 4.7 mmol/L 3.3-5.1 [facility] Potassium measurement (mass/ volume)Ordered By: Kvng Ochoa on 06-09-2024 Potassium (Unsp spec) [Mass/Vol] 4.7 mmol/L 3.3-5.1 [facility] RBC Auto (Bld) [#/Vol]Ordere d By: Kvng Ochoa on 06-09-2024 RBC (Bld) [#/Vol] 4.17 10*6/uL Low 4.2-5.4 [facility] Serum creatinine measurement (mass/volume)Ordered By: Kvng Ochoa on 06-09-2024 Creatinine [Mass/Vol] 0.94 mg/dL 0.70-1.20 [facility] Serum glucose measurement (m ass/volume)Ordered By: Kvng Ochoa on 06-09-2024 Glucose [Mass/Vol] 137 mg/dL High 70-99 [facility] Serum or plasma calcium viktoria urement (mass/volume)Ordered By: Kvng Ochoa on 06-09-2024 Calcium [Mass/Vol] 8.9 mg/dL 7.6-11.0 [facility] Serum or plasma urea nitroge n measurement (mass/volume)Ordered By: Kvng Ochoa on 06-09-2024 Urea nitrogen [Mass/Vol] 20 mg/dL High 4-19 [facility] Sodium levelOrdered By: Dru Ochoa on 06-09-2024 Sodium [Moles/Vol] 143 mmol/L 133-145 [facility] White blood cell (WBC) count Ordered By: Kvng Ochoa on 06-09-2024 WBC (Bld) [#/Vol] 9.0 10*3/uL 4.4-11.0 [facility] INR Coag (BldC) [Relative ti me]Ordered By: Cesar Cole on 05-19-2024 INR Coag (Bld) [Relative time] 2.9 {INR} [facility] Comment on above: Critical Value > 4.0 International normalized rat io (INR) measurement by fingerstickOrdered By: Cesar Cole on 05-19-2024 INR Coag (BldC) [Relative time] 2.9 [facility] Comment on above: Critical Value > 4.0 PT Coag (Bld) [Time]Ordered By: Cesar Cole on 05-19-2024 Bedside Prothrombin Time 30.4 SEC High 11.7-14.9 [facility] Whole blood prothrombin time Ordered By: Cesar Cole on 05-19-2024 PT Coag (Bld) [Time] 30.4 s High 11.7-14.9 [facility] Serum or plasma lamotrigine measurement (mass/volume)Ordered By: Anant Juarez on 05-12-2024 lamoTRIgine [Mass/Vol] 1.8 ug/mL Low 2.0-20.0 [facility] Comment on above: Detection Limit = 1. 0Performed at: [facility] [id number] Director: Brandon Wells MD, Phone: [phone] Venous blood ammonia measure mentOrdered By: Anant Juarez on 05-12-2024 Ammonia (P) [Moles/Vol] 17.0 umol/L 11-32 [facility] lamoTRIgine [Mass/Vol]Ordere d By: Anant Juarez on 05-12-2024 Lamotrigine (Lamictal) Level 1.8 ug/mL Low 2.0-20.0 [facility] Comment on above: Detection Limit = 1. 0Performed at: [facility], [place] [id number] Director: Brandon Wells MD, Phone: [phone] Neurology Visit Reporton Neurology Visit Report [facility] [address] [facility], [address] [place] [address] OFFICE VISIT Date of Service: 05/10/24 MR#: [id number] Acct: [id number] Name: EZRA GONZALEZ Rep #: [id number] : 1935 Provider: Dr. 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 She has become lost while driving [...] nature. Th (more content not included)... Normal [facility] INR Coag (BldC) [Relative ti me]Ordered By: Cesar Cole on 05-05-2024 INR Coag (Bld) [Relative time] 2.5 {INR} [facility] Comment on above: Critical Value > 4.0 PT Coag (Bld) [Time]Ordered By: Cesar Cole on 05-05-2024 Bedside Prothrombin Time 26.9 SEC High 11.7-14.9 [facility] normalized rat io (INR) calculationOrdered By: Kvng Ochoa on 04-28-2024 INR Coag (Bld) [Relative time] 3.4 {INR} [facility] Prothrombin timeOrdered By: Kvng Ochoa on 04-28-2024 PT Coag (PPP) [Time] 35.4 s High 11.7-14.9 [facility] International normalized rat io (INR) calculationOrdered By: Kvng Ochoa on 04-14-2024 INR Coag (Bld) [Relative time] 3.0 {INR} [facility] Prothrombin timeOrdered By: Kvng Ochoa on 04-14-2024 PT Coag (PPP) [Time] 31.4 s High 11.7-14.9 [facility] Blood urea nitrogen (BUN)/cr eatinine ratioOrdered By: Kvng Ochoa on 04-09-2024 Urea nitrogen/Creatinine [Mass ratio] 13.5 mg/mg 10- [facility] Carbon dioxide measurementOr dered By: Kvng Ochoa on 04-09-2024 CO2 [Moles/Vol] 28.0 mmol/L 21.0-32.0 [facility] Chloride measurementOrdered By: Kvng Ochoa on 04-09-2024 Chloride [Moles/Vol] 106 mmol/L 98-107 [facility] Estimated glomerular filtrat ion rate (GFR) AmericanOrdered By: Kvng Ochoa on 04-09-2024 Estimated GFR (MDRD) Amer 70 mL/min >60 [facility] Comment on above: GFR Calc Glomerular filtration rate ( GFR) estimationOrdered By: Kvng Ochoa on 04-09-2024 Estimated GFR (MDRD) Non-Af Amer 58 mL/min Low >60 [facility] Comment on above: Non- GFR Calc Glucose measurementOrdered B y: Kvng Ochoa on 04-09-2024 Glucose [Mass/Vol] 116 mg/dL High 74-106 [facility] Comment on above: Fasting Glucose resu lt from 100 to 125 mg/dL suggests IMPAIRED HOMEOSTASIS per A.D.A. criteria. Potassium measurementOrdered By: Kvng Ochoa on 04-09-2024 Potassium [Moles/Vol] 4.3 mmol/L 3.5-5.1 [facility] Serum anion gap measurementO rdered By: Kvng Ochoa on 04-09-2024 Anion gap [Moles/Vol] 3 mmol/L Low 5-15 [facility] Serum or plasma calcium viktoria urement (mass/volume)Ordered By: Kvng Ochoa on 04-09-2024 Calcium [Mass/Vol] 8.8 mg/dL 8.5-10.1 [facility] Serum or plasma creatinine m easurement (mass/volume)Ordered By: Kvng Ochoa on 04-09-2024 Creatinine [Mass/Vol] 0.96 mg/dL 0.55-1.02 [facility] Comment on above: The validity of the calculated GFR & GFRAA in patients over 70 years has not been determined. Clinical correlation is essential. Serum or plasma urea nitroge n measurement (mass/volume)Ordered By: Kvng Ochoa on 04-09-2024 Urea nitrogen [Mass/Vol] 13 mg/dL 7-18 [facility] Sodium levelOrdered By: Dru Ochoa on 04-09-2024 Sodium [Moles/Vol] 137 mmol/L 136-145 [facility] normalized rat io (INR) calculationOrdered By: Kvng Ochoa on 04-06-2024 INR Coag (Bld) [Relative time] 2.6 {INR} [facility] Prothrombin timeOrdered By: Knvg Ochoa on 04-06-2024 PT Coag (PPP) [Time] 28.8 s High 11.7-14.9 [facility] INR Coag (BldC) [Relative ti me]Ordered By: Kvng Ochoa on 04-05-2024 INR Coag (Bld) [Relative time] 3.5 {INR} [facility] Comment on above: Critical Value > 4.0 PT Coag (Bld) [Time]Ordered By: Kvng Ochoa on 04-05-2024 Bedside Prothrombin Time 35.4 SEC High 11.7-14.9 [facility] normalized rat io (INR) calculationOrdered By: Kvng Ochoa on 03-29-2024 INR Coag (Bld) [Relative time] 1.5 {INR} [facility] Prothrombin timeOrdered By: Kvng Ochoa on 03-29-2024 PT Coag (PPP) [Time] 17.9 s High 11.7-14.9 [facility] INR Coag (BldC) [Relative ti me]Ordered By: Kvng Ochoa on 03-26-2024 INR Coag (Bld) [Relative time] 3.4 {INR} [facility] Comment on above: Critical Value > 4.0 PT Coag (Bld) [Time]Ordered By: Kvng Ochoa on 03-26-2024 Bedside Prothrombin Time 34.4 SEC High 11.7-14.9 [facility] INR Coag (BldC) [Relative ti me]Ordered By: Kvng Ochoa on 03-25-2024 INR Coag (Bld) [Relative time] 3.8 {INR} [facility] Comment on above: Critical Value > 4.0 PT Coag (Bld) [Time]Ordered By: Kvng Ochoa on 03-25-2024 Bedside Prothrombin Time 37.8 SEC High 11.7-14.9 [facility] normalized rat io (INR) calculationOrdered By: Kvng Ochoa on 03-19-2024 INR Coag (Bld) [Relative time] 3.0 {INR} [facility] Prothrombin timeOrdered By: Kvng Ochoa on 03-19-2024 PT Coag (PPP) [Time] 30.7 s High 11.7-14.9 [facility] INR Coag (BldC) [Relative ti me]Ordered By: Kvng Ochoa on 03-17-2024 INR Coag (Bld) [Relative time] 3.3 {INR} [facility] Comment on above: Critical Value > 4.0 PT Coag (Bld) [Time]Ordered By: Kvng Ochoa on 03-17-2024 Bedside Prothrombin Time 34.2 SEC High 11.7-14.9 [facility] INR Coag (BldC) [Relative ti me]Ordered By: Kvng Ochoa on 03-10-2024 INR Coag (Bld) [Relative time] 2.4 {INR} [facility] Comment on above: Critical Value > 4.0 PT Coag (Bld) [Time]Ordered By: Kvng Ochoa on 03-10-2024 Bedside Prothrombin Time 25.4 SEC High 11.7-14.9 [facility] normalized rat io (INR) calculationOrdered By: Kvng Ochoa on 03-08-2024 INR Coag (Bld) [Relative time] 1.8 {INR} [facility] Prothrombin timeOrdered By: Kvng Ochoa on 03-08-2024 PT Coag (PPP) [Time] 21.1 s High 11.7-14.9 [facility] INR Coag (BldC) [Relative ti me]Ordered By: Kvng Ochoa on 03-04-2024 INR Coag (Bld) [Relative time] 1.8 {INR} [facility] Comment on above: Critical Value > 4.0 PT Coag (Bld) [Time]Ordered By: Kvng Ochoa on 03-04-2024 Bedside Prothrombin Time 20.2 SEC High 11.7-14.9 [facility] INR Coag (BldC) [Relative ti me]Ordered By: Kvng Ochoa on 02-05-2024 INR Coag (Bld) [Relative time] 2.2 {INR} [facility] Comment on above: Critical Value > 4.0 PT Coag (Bld) [Time]Ordered By: Kvng Ochoa on 02-05-2024 Bedside Prothrombin Time 22.8 SEC High 11.7-14.9 [facility] Capillary blood internationa l normalized ratio (INR)Ordered By: Alexandra Hagen on 06-30-2023 INR Coag (BldC) [Relative time] 2.4 [facility] Comment on above: Critical Value > 4.0 Whole blood prothrombin time Ordered By: Alexandra Hagen on 06-30-2023 PT Coag (Bld) [Time] 24.6 s 11.7-14.9 [facility] CARECOORDon 2023 CARECOORD Patient Choice Patient Name: EZRA GONZALEZ Date of : 1935 [facility] CARECOORDon 06-20-2023 [place]OORD Next Site of Care Admission Date: 06/16/2023 01:38 PM Patient Name: EZRA GONZALEZ Location: [address] [id number] Date of : 1935 ------- Placement Information ------- Referral Type:Home Health Care Services - New Referral ID:[id number] Provider Name:[facility] Address 1:[address] Address 2: City:[place] Selection Factors:Patient/Famil y Choice State:[place] Normal [facility] updated SW, pt i s requesting COT [...] pt order lunch. Notified TONIO, RN and special investigation unit investigator. . [facility]OORD I SPOKE WITH DONOVAN, PLANT AND EQUIPMENT WORKER AT [facility]. THEY CAN TAKE PT BACK TODAY. THEY CAN PROVIDE TRANSPORTATION BACK TO FACILITY AROUND 3 PM. AWARE PT WILL NEED PT AT FACILITY, THEY USE [facility], DID LET HC LIAISON NOW. WENT [...] SECURE CHAT WITH CONNIE PEREZ REGARDING THIS. [facility] Laboratory - Chemistry and C hemistry - challengeon 06-20-2023 Glucose [Mass/Vol] 125 mg/dL High 70 - 100 mg/dL [facility] Laboratory - Coagulationon 0 06-20-2023 PT Coag (Bld) [Time] 11.3 s 9.0 - 12.0 s [facility] No Panel Informationon 06-19 Interpretation and review of laboratory results Abnormal Trina Alcazar th Performed by: [facility], [address] [place] [address] CLIA ID: [id number] [facility] Radiology Study observation (narrative) Trina isabel PROTHROMBIN TIMEon INR Coag (PPP) [Relative time] 1.1 {INR} Normal 0.9-1.1 [facility] Comment on above: Result Comment: [...] to prevent Myocardial Infarction Performed By: #### Akanksha [id number] ####Commercial Installer: ALEXANDRA BUSTAMANTE ([id number])[facility] ([facility])[address] [place] [address] PT Coag (PPP) [Time] 11.3 s Normal 9.0-12.0 [facility] Comment on above: Performed By: #### Akanksha [id number] ####Commercial Installer: ALEXANDRA BUSTAMANTE ([phone])[facility] ([facility])[address] [place] [address] [place] PT Coag (Bld) [Time]on 06-19 INR Coag (PPP) [Relative time] 1.1 {INR} 0.9 - 1.1 [facility] Comment on above: Recommended Anticoag ulant [...] Interpretation and review of laboratory results Normal [facility] Progress Noteon 06-20-2023 Progress Note Dc via DM cot to Josep MCARTHUR with all belongings [facility] Progress Note Called report to Maryanne at [facility] Progress Note [facility] Anticoagulatio n Management Service (RIA) Inpatient Warfarin Consult HPI: Ezra Gonzalez is a 87 y.o. female admitted on 06/16/2023 for Closed displaced fracture of medial condyle of right humerus, initial encounter [S42.591A] History reviewed. No pertinent past medical history. [...] patient can be classified as high risk ([id number] = 8). 2. Monitor for s/s of bleeding and drug interactions. Will adjust dose accordingly 3. RIA will manage while inpatient Dc Lombardi, PharmD Candidate Toshia Sanches, JpD, BCPS RIA is available daily [phone] via [facility] Chat. If no response on [facility] Chat then please page [phone]. Normal [facility] BASIC METABOLIC PANELon 05-30 Anion gap [Moles/Vol] 11 mmol/L Normal 3-13 [facility] Comment on above: Performed By: #### L AB15 ####Commercial Installer: ALEXANDRA BUSTAMANTE ([phone])[facility] ([address] Calcium [Mass/Vol] 8.3 mg/dL Low 8.4-10.4 [facility] Comment on above: Performed By: #### L AB15 ####Commercial Installer: ALEXANDRA BUSTAMANTE ([id number])[facility] ([facility])[address] [place] [address] [place] Chloride [Moles/Vol] 102 mmol/L Normal 98-107 [facility] Comment on above: Performed By: #### L AB15 ####Commercial Installer: ALEXANDRA BUSTAMANTE ([phone])[facility] ([facility])[address] [place] [address] [place] CO2 [Moles/Vol] 21 mmol/L Low 22-30 [facility] Comment on above: Performed By: #### L AB15 ####Commercial Installer: ALEXANDRA BUSTAMANTE ([phone])[facility] ([facility])[address] [place] [address] [place] Creatinine [Mass/Vol] 0.84 mg/dL Normal 0.52-1.04 [facility] Comment on above: Performed By: #### L AB15 ####Commercial Installer: ALEXANDRA BUSTAMANTE ([id number])[facility] ([facility])[address] [place] [address] [place] GLOMERULAR FILTRATION RATE ML/MIN/1.73 SQ M.PREDICTED 67.4 mL/min/1.73m*2 Normal >60.0 [facility] Comment on above: Result Comment: Calc ulation based on the Chronic Kidney Disease Epidemiology Collaboration (CKD-EPI) equation refit without adjustment for race Performed By: #### L AB15 ####Commercial Installer: ALEXANDRA BUSTAMANTE ([phone])[facility] ([facility])[address] [place] [address] [place] Glucose [Mass/Vol] 263 mg/dL High 70-100 [facility] Comment on above: Performed By: #### L AB15 ####Commercial Installer: ALEXANDRA BUSTAMANTE ([phone])[facility] ([facility])[address] [place] [address] [place] Potassium [Moles/Vol] 4.7 mmol/L Normal 3.5-5.1 [facility] Comment on above: Performed By: #### L AB15 ####Commercial Installer: ALEXANDRA BUSTAMANTE ([phone])[facility] ([facility])[address] [place] [address] Sodium [Moles/Vol] 133 mmol/L Low 135-145 [facility] Comment on above: Performed By: #### L AB15 ####Commercial Installer: ALEXANDRA BUSTAMANTE ([phone])[facility] ([facility])[address] [place] [address] Urea nitrogen [Mass/Vol] 27 mg/dL High 7-17 [facility] Comment on above: Performed By: #### L AB15 ####Commercial Installer: ALEXANDRA BUSTAMANTE ([phone])[facility] ([facility])[address] [place] [address] Basic metabolic 1998 panelon 06-19-2023 Anion gap [Moles/Vol] 11 mmol/L 3 - 13 mmol/L [facility] Calcium [Mass/Vol] 8.3 mg/dL Low 8.4 - 10. 4 mg/dL [facility] Chloride [Moles/Vol] 102 mmol/L 98 - 10 7 mmol/L [facility] CO2 [Moles/Vol] 21 mmol/L Low 22 - 30 mmol/L [facility] Creatinine [Mass/Vol] 0.84 mg/dL 0.52 - 1.04 mg/dL [facility] GFR/1.73 sq M.predicted MDRD (S/P/Bld) [Vol rate/Area] 67.4 mL/min/{1.73_m2} - PINF [facility] Comment on above: Calculation based on the Chronic Kidney Disease Epidemiology Collaboration (CKD-EPI) equation refit without adjustment for race Glucose [Mass/Vol] 263 mg/dL High 70 - 100 mg/dL [facility] Interpretation and review of laboratory results Abnormal [facility] Potassium [Moles/Vol] 4.7 mmol/L 3.5 - 5.1 mmol/L [facility] Sodium [Moles/Vol] 133 mmol/L Low 135 - 145 mmol/L [facility] Urea nitrogen [Mass/Vol] 27 mg/dL High 7 - 17 mg/d [facility] #1 S/P ORIF OF RIGHT ARM. WAITING FOR PT/OT EVALS FOR DC PLANNING. Normal [facility] CBC W Auto Differential pane l (Bld)Ordered By: Leona Thakur on 06-19-2023 Basophils (Bld) [#/Vol] 0.0 10*3/uL 0.0 - 0.2 10*3/uL [facility] Basophils/100 WBC (Bld) 0.2 % 0.0 - 2.0 % [facility] Eosinophils (Bld) [#/Vol] 0.0 10*3/uL 0. 0 - 0.5 10*3/uL [facility] Eosinophils/100 WBC (Bld) 0.0 % 0.0 - 6.0 % [facility] [facility] Erythrocyte distribution width (RBC) [Ratio] 13.6 % 11.5 - 15.0 % [facility] Hematocrit (Bld) [Volume fraction] 35.0 % 35.0 - 47.0 % [facility] Hemoglobin (Bld) [Mass/Vol] 11.4 g/dL Low 11.7 - 16.0 g/dL [facility] Immature granulocytes (Bld) [#/Vol] 0.1 10*3/uL High NINF - 0.1 10*3/uL [facility] Immature granulocytes/100 WBC (Bld) 0.6 % 0.0 - 2.0 % [facility] Interpretation and review of laboratory results Abnormal [facility] th Lymphocytes (Bld) [#/Vol] 0.8 10*3/uL Low 1. 0 - 4.3 10*3/uL [facility] Lymphocytes/100 WBC (Bld) 6.4 % Low 15 .0 - 45.0 % [facility] MCH (RBC) [Entitic mass] 28.6 pg 26. 0 - 34.0 pg [facility] MCHC (RBC) [Mass/Vol] 32.6 % 30.5 - 36.0 % [facility] MCV (RBC) [Entitic vol] 87.9 fL 77.0 - 99.0 fL [facility] Monocytes (Bld) [#/Vol] 0.6 10*3/uL 0.0 - 0.9 10*3/uL [facility] Monocytes/100 WBC (Bld) 4.6 % Low 5.0 - 13.0 % [facility] Neutrophils (Bld) [#/Vol] 11.2 10*3/uL High 1. 8 - 7.5 10*3/uL [facility] Neutrophils/100 WBC (Bld) 88.2 % High 38 .0 - 82.0 % [facility] Nucleated RBC/100 WBC (Bld) [Ratio] 0.0 % [facility] Platelet mean volume (Bld) [Entitic vol] 10.2 fL 9.0 - 12.7 fL [facility] Platelets (Bld) [#/Vol] 260 10*3/uL 140 - 440 10*3/uL [facility] RBC (Bld) [#/Vol] 3.98 10*6/uL 3.80 - 5.2 0 10*6/uL [facility] WBC (Bld) [#/Vol] 12.7 10*3/uL High 3.6 - 10.7 10*3/uL [facility] CBC WITH AUTO DIFFERENTIALon 06-19-2023 Basophils (Bld) [#/Vol] 0.0 10*3/uL Normal 0.0-0.2 [facility] Comment on above: Performed By: #### L [id number] ####Commercial Installer: ALEXANDRA BUSTAMANTE ([phone])[facility])[address] [place] [address] Basophils/100 WBC (Bld) 0.2 % Normal 0.0-2.0 [facility] Comment on above: Performed By: #### L [id number] ####Commercial Installer: ALEXANDRA BUSTAMANTE ([phone])[facility] ([facility])[address] [place] [address] [place] Eosinophils (Bld) [#/Vol] 0.0 10*3/uL Normal 0.0-0.5 [facility] Comment on above: Performed By: #### L [id number] ####Commercial Installer: ALEXANDRA BUSTAMANTE ([phone])[facility] ([facility])[address] [place] [address] [place] Eosinophils/100 WBC (Bld) 0.0 % Normal 0.0-6.0 [facility] Comment on above: Performed By: #### L [id number] ####Commercial Installer: ALEXANDRA BUSTAMANTE ([phone])[facility])[address] [place] [address] Erythrocyte distribution width (RBC) [Ratio] 13.6 % Normal 11.5-15.0 [facility] Comment on above: Performed By: #### L [id number] ####Commercial Installer: ALEXANDRA BUSTAMANTE ([phone])[facility])[address] [place] [address] Hematocrit (Bld) [Volume fraction] 35.0 % Normal 35.0-47.0 [facility] Comment on above: Performed By: #### L [id number] ####Commercial Installer: ALEXANDRA BUSTAMANTE ([phone])[address] Hemoglobin (Bld) [Mass/Vol] 11.4 g/dL Low 11.7-16.0 [facility] Comment on above: Performed By: #### L [id number] ####Commercial Installer: ALEXANDRA BUSTAMANTE ([phone])[facility])[address] [place] [address] IMMATURE GRANS % 0.6 % Normal 0.0-2.0 [facility] Comment on above: Performed By: #### L [id number] ####Commercial Installer: ALEXANDRA BUSTAMANTE ([phone])[facility])[address] [place] [address] IMMATURE GRANS ABSOLUTE 0.1 10*3/uL High <0.1 [facility] Comment on above: Performed By: #### L [id number] ####Commercial Installer: ALEXANDRA BUSTAMANTE ([phone])[facility])[address] [place] [address] Lymphocytes (Bld) [#/Vol] 0.8 10*3/uL Low 1.0-4.3 [facility] Comment on above: Performed By: #### L [id number] ####Commercial Installer: ALEXANDRA BUSTAMANTE ([phone])[facility])[address] [place] [address] Lymphocytes/100 WBC (Bld) 6.4 % Low 15.0-45.0 [facility] Comment on above: Performed By: #### L [id number] ####Commercial Installer: ALEXANDRA BUSTAMANTE ([phone])[facility])[address] [place] [address] MCH (RBC) [Entitic mass] 28.6 pg Normal 26.0-34.0 [facility] Comment on above: Performed By: #### L [id number] ####Commercial Installer: ALEXANDRA BUSTAMANTE ([phone])[facility])[address] [place] [address] MCHC 32.6 % Normal 30.5-36.0 [facility] Comment on above: Performed By: #### L [id number] ####Commercial Installer: ALEXANDRA BUSTAMANTE ([phone])[facility])[address] [place] [address] MCV (RBC) [Entitic vol] 87.9 fL Normal 77.0-99.0 [facility] Comment on above: Performed By: #### L [id number] ####Commercial Installer: ALEXANDRA BUSTAMANTE ([phone])[facility])[address] [place] [address] Monocytes (Bld) [#/Vol] 0.6 10*3/uL Normal 0.0-0.9 [facility] Comment on above: Performed By: #### L [id number] ####Commercial Installer: ALEXANDRA BUSTAMANTE ([phone])[facility])[address] [place] [address] Monocytes/100 WBC (Bld) 4.6 % Low 5.0-13.0 [facility] Comment on above: Performed By: #### L [id number] ####Commercial Installer: ALEXANDRA [phone])[facility] ([facility])[address] [place] [address] NEUTROPHILS ABSOLUTE 11.2 10*3/uL High 1.8-7.5 [facility] Comment on above: Performed By: #### L [id number] ####Commercial Installer: ALEXANDRA BUSTAMANTE ([phone])[facility] ([facility])[address] [place] [address] Neutrophils/100 WBC (Bld) 88.2 % High 38.0-82.0 [facility] Comment on above: Performed By: #### L [id number] ####Commercial Installer: ALEXANDRA BUSTAMANTE ([phone])[facility] ([facility])[address] [place] [address] NRBC 0.0 /100 WBCs Normal 0.0-2.0 [facility] Comment on above: Performed By: #### L [id number] ####Commercial Installer: ALEXANDRA BUSTAMANTE ([phone])[facility] ([facility])[address] [place] [address] Platelet mean volume (Bld) [Entitic vol] 10.2 fL Normal 9.0-12.7 [facility] Comment on above: Performed By: #### L [id number] ####Commercial Installer: ALEXANDRA BUSTAMANTE ([id number])[facility] ([facility])[address] [place] [address] Platelets (Bld) [#/Vol] 260 10*3/uL Normal 140-440 [facility] Comment on above: Performed By: #### L [id number] ####Commercial Installer: ALEXANDRA BUSTAMANTE ([id number])[facility] ([facility])[address] [place] [address] RBC (Bld) [#/Vol] 3.98 10*6/uL Normal 3.80-5.20 [facility] Comment on above: Performed By: #### L [id number] ####Commercial Installer: ALEXANDRA BUSTAMANTE ([phone])[facility] ([facility])[address] [place] [address] WBC (Bld) [#/Vol] 12.7 10*3/uL High 3.6-10.7 [facility] Comment on above: Performed By: #### L [id number] ####Commercial Installer: ALEXANDRA BUSTAMANTE ([id number])[facility] ([facility])[address] [place] [address] Laboratory - Chemistry and C hemistry - challengeon 06-19-2023 Glucose [Mass/Vol] 220 mg/dL High 70 - 100 mg/dL [facility] Glucose [Mass/Vol] 137 mg/dL High 70 - 100 mg/dL [facility] Glucose [Mass/Vol] 141 mg/dL High 70 - 100 mg/dL [facility] Glucose [Mass/Vol] 177 mg/dL High 70 - 100 mg/dL [facility] Laboratory - Coagulationon 0 06-19-2023 PT Coag (Bld) [Time] 11.3 s 9.0 - 12.0 s [facility] No Panel Informationon 06-18 Interpretation and review of laboratory results Abnormal [facility] Performed by: [facility], [address] [place] [address] CLIA ID: [id number] [facility] Interpretation and review of laboratory results Abnormal [facility] Performed by: [facility], [address] [place] [address] CLIA ID: [id number] [facility] Interpretation and review of laboratory results Abnormal [facility] Performed by: [facility], [address] [place] [address] CLIA ID: [id number] [facility] Interpretation and review of laboratory results Abnormal [facility] th Performed by: [facility], [address] [place] [address] CLIA ID: [id number] [facility] Radiology Study observation (narrative) Trina Oconnell alth Radiology Study observation (narrative) Trina Oconnell alth Radiology Study observation (narrative) Trina Oconnell alth Radiology Study observation (narrative) Trina Oconnell alth PROTHROMBIN TIMEon INR Coag (PPP) [Relative time] 1.1 {INR} Normal 0.9-1.1 [facility] Comment on above: Result Comment: [...] Myocardial Infarction Performed By: #### L [id number] ####Commercial Installer: ALEXANDRA BUSTAMANTE ([phone])[facility] ([facility])[address] [place] [address] PT Coag (PPP) [Time] 11.3 s Normal 9.0-12.0 [facility] Comment on above: Performed By: #### Aaknksha [id number] ####Commercial Installer: ALEXANDRA BUSTAMANTE ([phone])[facility] ([facility])[address] [place] [address] PT Coag (Bld) [Time]on 06-18 INR Coag (PPP) [Relative time] 1.1 {INR} 0.9 - 1.1 [facility] Comment on above: Recommended Anticoag ulant [...] Interpretation and review of laboratory results Normal [facility] Progress Noteon 06-19-2023 Progress Note [facility] Anticoagulatio n Management Service (RIA) Inpatient Warfarin Consult HPI: Ezra Gonzalez is a 87 y.o. female admitted on 06/16/2023 for Closed displaced fracture of medial condyle of right humerus, initial encounter [L05.158X] History reviewed. No pertinent past medical history. [...] patient can be classified as high risk ([id number] = 8). 2. Monitor for s/s of bleeding and drug interactions. Will adjust dose accordingly 3. RIA will manage while inpatient Dc Lombardi, PharmD Candidate Jp BolanosD, BCPS RIA is available daily [phone] via [employer]. If no response on [facility] Chat then please page [phone]. Normal [facility] BASIC METABOLIC PANELon 05-30-2023 Anion gap [Moles/Vol] 10 mmol/L Normal 3-13 [facility] Comment on above: Performed By: #### L [id number] ####Commercial Installer: ALEXANDRA BUSTAMANTE ([phone])[facility])[address] [place] [address] Calcium [Mass/Vol] 8.8 mg/dL Normal 8.4-10.4 [facility] Comment on above: Performed By: #### L [id number] ####Commercial Installer: ALEXANDRA BUSTAMANTE ([phone])[facility] ([facility])[address] [place] [address] [place] Chloride [Moles/Vol] 98 mmol/L Normal 98-107 [facility] Comment on above: Performed By: #### L AB15 ####Commercial Installer: ALEXANDRA BUSTAMANTE ([phone])[facility] ([facility])[address] [place] [address] [place] CO2 [Moles/Vol] 25 mmol/L Normal 22-30 [facility] Comment on above: Performed By: #### L [id number] ####Commercial Installer: ALEXANDRA BUSTAMANTE ([phone])[address] Creatinine [Mass/Vol] 0.83 mg/dL Normal 0.52-1.04 [facility] Comment on above: Performed By: #### L AB15 ####Commercial Installer: ALEXANDRA BUSTAMANTE ([phone])[address] GLOMERULAR FILTRATION RATE ML/MIN/1.73 SQ M.PREDICTED 68.3 mL/min/1.73m*2 Normal >60.0 [facility] Comment on above: Result Comment: Calc ulation based on the Chronic Kidney Disease Epidemiology Collaboration (CKD-EPI) equation refit without adjustment for race Performed By: #### L AB15 ####Commercial Installer: ALEXANDRA BUSTAMANTE ([phone])[address] Glucose [Mass/Vol] 163 mg/dL Normal [facility] Comment on above: Performed By: #### L AB15 ####Commercial Installer: ALEXANDRA [phone])[address] Order Comment: If no t done within the last 3 mos Performed By: #### L [id number] ####Commercial Installer: ALEXANDRA BUSTAMANTE ([phone])[address] Potassium [Moles/Vol] 4.6 mmol/L Normal 3.5-5.1 [facility] Comment on above: Performed By: #### L AB15 ####Commercial Installer: ALEXANDRA BUSTAMANTE ([phone])[address] Sodium [Moles/Vol] 133 mmol/L Low 135-145 [facility] Comment on above: Performed By: #### L AB15 ####Commercial Installer: ALEXANDRA [phone])[facility] ([facility])[address] [place] [address] Urea nitrogen [Mass/Vol] 24 mg/dL High 7-17 [facility] Comment on above: Performed By: #### L [id number] ####Commercial Installer: ALEXANDRA BUSTAMANTE ([id number])[facility] [place] [address] Basic metabolic 1998 panelon 06-18-2023 Anion gap [Moles/Vol] 10 mmol/L 3 - 13 mmol/L [facility] Calcium [Mass/Vol] 8.8 mg/dL 8.4 - 10. 4 mg/dL [facility] Chloride [Moles/Vol] 98 mmol/L 98 - 10 7 mmol/L [facility] CO2 [Moles/Vol] 25 mmol/L 22 - 30 mmol/L [facility] Creatinine [Mass/Vol] 0.83 mg/dL 0.52 - 1.04 mg/dL [facility] GFR/1.73 sq M.predicted MDRD (S/P/Bld) [Vol rate/Area] 68.3 mL/min/{1.73_m2} - PINF [facility] Comment on above: Calculation based on the Chronic Kidney Disease Epidemiology Collaboration (CKD-EPI) equation refit without adjustment for race Glucose [Mass/Vol] 163 mg/dL High 70 - 100 mg/dL [facility] Interpretation and review of laboratory results Abnormal [facility] Potassium [Moles/Vol] 4.6 mmol/L 3.5 - 5.1 mmol/L [facility] Sodium [Moles/Vol] 133 mmol/L Low 135 - 145 mmol/L [facility] Urea nitrogen [Mass/Vol] 24 mg/dL High 7 - 17 mg/d L [facility] CARECOORDon 06-18-2023 [place] Care Managment Initial Assessment Date: 06/18/2023 Patient Name: Ezra Gonzalez : 1935 Patient Information Source of Information: Patient Cognition/Language: WFL - Within Functional Limits Permission given to speak with patient volunteer patient representative/caregi saira as indicated: No Confirmation of Payer with patient/family: Yes Payer Name: [facility] : No Confirmation of Primary Care [...] CONTINUE TO FOLLOW. Shikha Gray RN Normal [facility] CBC W Auto Differential pane l (Bld)Ordered By: Nir Meza on 06-18-2023 Basophils (Bld) [#/Vol] 0.1 10*3/uL 0.0 - 0.2 10*3/uL [facility] Basophils/100 WBC (Bld) 0.4 % 0.0 - 2.0 % [facility] Eosinophils (Bld) [#/Vol] 0.2 10*3/uL 0. 0 - 0.5 10*3/uL [facility] Eosinophils/100 WBC (Bld) 1.3 % 0.0 - 6.0 % [facility] Erythrocyte distribution width (RBC) [Ratio] 13.8 % 11.5 - 15.0 % [facility] Hematocrit (Bld) [Volume fraction] 44.1 % 35.0 - 47.0 % [facility] Hemoglobin (Bld) [Mass/Vol] 13.9 g/dL 11.7 - 16.0 g/dL [facility] Immature granulocytes (Bld) [#/Vol] 0.1 10*3/uL High NINF - 0.1 10*3/uL [facility] Immature granulocytes/100 WBC (Bld) 0.4 % 0.0 - 2.0 % [facility] Interpretation and review of laboratory results Abnormal [facility] th Lymphocytes (Bld) [#/Vol] 2.0 10*3/uL 1. 0 - 4.3 10*3/uL [facility] Lymphocytes/100 WBC (Bld) 13.1 % Low 15 .0 - 45.0 % [facility] MCH (RBC) [Entitic mass] 28.0 pg 26. 0 - 34.0 pg [facility] MCHC (RBC) [Mass/Vol] 31.5 % 30.5 - 36.0 % [facility] MCV (RBC) [Entitic vol] 88.9 fL 77.0 - 99.0 fL [facility] Monocytes (Bld) [#/Vol] 1.4 10*3/uL High 0.0 - 0.9 10*3/uL [facility] Monocytes/100 WBC (Bld) 9.0 % 5.0 - 13.0 % [facility] Neutrophils (Bld) [#/Vol] 11.8 10*3/uL High 1. 8 - 7.5 10*3/uL [facility] Neutrophils/100 WBC (Bld) 75.8 % 38 .0 - 82.0 % [facility] Nucleated RBC/100 WBC (Bld) [Ratio] 0.0 % [facility] Platelet mean volume (Bld) [Entitic vol] 10.1 fL 9.0 - 12.7 fL [facility] Platelets (Bld) [#/Vol] 375 10*3/uL 140 - 440 10*3/uL [facility] RBC (Bld) [#/Vol] 4.96 10*6/uL 3.80 - 5.2 0 10*6/uL [facility] WBC (Bld) [#/Vol] 15.5 10*3/uL High 3.6 - 10.7 10*3/uL [facility] CBC WITH AUTO DIFFERENTIALon 06-18-2023 Basophils (Bld) [#/Vol] 0.1 10*3/uL Normal 0.0-0.2 [facility] Comment on above: Performed By: #### L [id number] ####Commercial Installer: ALEXANDRA BUSTAMANTE ([phone])[facility] ([facility])[address] [place] [address] [place] Basophils/100 WBC (Bld) 0.4 % Normal 0.0-2.0 [facility] Comment on above: Performed By: #### L [id number] ####Commercial Installer: ALEXANDRA BUSTAMANTE ([phone])[facility])[address] [place] [address] Eosinophils (Bld) [#/Vol] 0.2 10*3/uL Normal 0.0-0.5 [facility] Comment on above: Performed By: #### L [id number] ####Commercial Installer: ALEXANDRA BUSTAMANTE ([phone])[facility] ([facility])[address] [place] [address] Eosinophils/100 WBC (Bld) 1.3 % Normal 0.0-6.0 [facility] Comment on above: Performed By: #### L [id number] ####Commercial Installer: ALEXANDRA BUSTAMANTE ([phone])[facility])[address] [place] [address] Erythrocyte distribution width (RBC) [Ratio] 13.8 % Normal 11.5-15.0 [facility] Comment on above: Performed By: #### L [id number] ####Commercial Installer: ALEXANDRA BUSTAMANTE ([phone])[facility] ([facility])[address] [place] [address] Hematocrit (Bld) [Volume fraction] 44.1 % Normal 35.0-47.0 [facility] Comment on above: Performed By: #### L [id number] ####Commercial Installer: ALEXANDRA BUSTAMANTE ([phone])[facility])[address] [place] [address] [place] Hemoglobin (Bld) [Mass/Vol] 13.9 g/dL Normal 11.7-16.0 [facility] Comment on above: Performed By: #### L [id number] ####Commercial Installer: ALEXANDRA BUSTAMANTE ([phone])[facility])[address] [place] [address] IMMATURE GRANS % 0.4 % Normal 0.0-2.0 [facility] Comment on above: Performed By: #### L [id number] ####Commercial Installer: ALEXANDRA BUSTAMANTE ([phone])[facility])[address] [place] [address] IMMATURE GRANS ABSOLUTE 0.1 10*3/uL High <0.1 [facility] Comment on above: Performed By: #### L [id number] ####Commercial Installer: ALEXANDRA BUSTAMANTE ([phone])[facility])[address] [place] [address] Lymphocytes (Bld) [#/Vol] 2.0 10*3/uL Normal 1.0-4.3 [facility] Comment on above: Performed By: #### L [id number] ####Commercial Installer: ALEXANDRA BUSTAMANTE ([phone])[address] Lymphocytes/100 WBC (Bld) 13.1 % Low 15.0-45.0 [facility] Comment on above: Performed By: #### L [id number] ####Commercial Installer: ALEXANDRA BUSTAMANTE ([phone])[facility])[address] [place] [address] MCH (RBC) [Entitic mass] 28.0 pg Normal 26.0-34.0 [facility] Comment on above: Performed By: #### L [id number] ####Commercial Installer: ALEXANDRA BUSTAMANTE ([phone])[address] MCHC 31.5 % Normal 30.5-36.0 [facility] Comment on above: Performed By: #### L [id number] ####Commercial Installer: ALEXANDRA BUSTAMANTE ([phone])[facility] ([facility])[address] [place] [address] MCV (RBC) [Entitic vol] 88.9 fL Normal 77.0-99.0 [facility] Comment on above: Performed By: #### L [id number] ####Commercial Installer: ALEXANDRA BUSTAMANTE ([phone])[facility] ([facility])[address] [place] [address] Monocytes (Bld) [#/Vol] 1.4 10*3/uL High 0.0-0.9 [facility] Comment on above: Performed By: #### L [id number] ####Commercial Installer: ALEXANDRA BUSTAMANTE ([phone])[facility] ([facility])[address] [place] [address] Monocytes/100 WBC (Bld) 9.0 % Normal 5.0-13.0 [facility] Comment on above: Performed By: #### L [id number] ####Commercial Installer: ALEXANDRA BUSTAMANTE ([phone])[facility] ([facility])[address] [place] [address] NEUTROPHILS ABSOLUTE 11.8 10*3/uL High 1.8-7.5 [facility] Comment on above: Performed By: #### L [id number] ####Commercial Installer: ALEXANDRA BUSTAMANTE ([phone])[facility] ([facility])[address] [place] [address] Neutrophils/100 WBC (Bld) 75.8 % Normal 38.0-82.0 [facility] Comment on above: Performed By: #### L [id number] ####Commercial Installer: ALEAXNDRA BUSTAMANTE ([phone])[facility])[address] [place] [address] NRBC 0.0 /100 WBCs Normal 0.0-2.0 [facility] Comment on above: Performed By: #### L [id number] ####Commercial Installer: ALEXANDRA BUSTAMANTE ([id number])[facility])[address] [place] [address] Platelet mean volume (Bld) [Entitic vol] 10.1 fL Normal 9.0-12.7 [facility] Comment on above: Performed By: #### L [id number] ####Commercial Installer: ALEXANDRA BUSTAMANTE ([phone])[facility])[address] [place] [address] Platelets (Bld) [#/Vol] 375 10*3/uL Normal 140-440 [facility] Comment on above: Performed By: #### L [id number] ####Commercial Installer: ALEXANDRA BUSTAMANTE ([phone])[facility])[address] [place], [place] [address] RBC (Bld) [#/Vol] 4.96 10*6/uL Normal 3.80-5.20 [facility] Comment on above: Performed By: #### L [id number] ####Commercial Installer: ALEXANDRA BUSTAMANTE ([phone])[facility] ([facility])[address] [place] [address] WBC (Bld) [#/Vol] 15.5 10*3/uL High 3.6-10.7 [facility] Comment on above: Performed By: #### L [id number] ####Commercial Installer: ALEXANDRA BUSTAMANTE ([phone])[facility])[address] [place] [address] HEMOGLOBIN A1Con 06-18-2023 HbA1c (Bld) [Mass fraction] 7.3 % High <5.7 [facility] Comment on above: Order Comment: If no t done within the last 3 mos Result Comment: Norm al less than 5.7% Prediabetes 5.7% to 6.4% Diabetes 6.5% or higher --HgbA1C levels may not be accurate in patients who have renal disease, received recent blood transfusions, are anemic, or who have dyshemoglobinemia. Performed By: #### L [id number] ####Commercial Installer: ALEXANDRA BUSTAMANTE ([phone])[facility])[address] IDNon 06-18-2023 IDN The patient is Moderately Stable - Low risk of patient condition declining or worsening The patient's goals for the shift include rest and pain control The clinical goals for the shift include rest and pain control Normal [facility] Laboratory - Chemistry and C hemistry - challengeon 06-18-2023 Glucose [Mass/Vol] 189 mg/dL High 70 - 100 mg/dL [facility] Procalcitonin [Mass/Vol] 0.06 ng/mL 0.0 0 - 0.09 ng/mL [facility] Glucose [Mass/Vol] 121 mg/dL High 70 - 100 mg/dL [facility] Average glucose Estimated from glycated hemoglobin (Bld) [Mass/Vol] 163 mg/dL [facility] Laboratory - Hematology and Cell countson 06-18-2023 HbA1c (Bld) [Mass fraction] 7.3 % High NINF - 5.7 % [facility] Comment on above: Normal less than 5.7 % Prediabetes 5.7% to 6.4% Diabetes 6.5% or higher --HgbA1C levels may not be accurate in patients who have renal disease, received recent blood transfusions, are anemic, or who have dyshemoglobinemia. No Panel Informationon 06-17 Interpretation and review of laboratory results Abnormal [facility] Performed by: [facility], [address] [place] [address] CLIA ID: [id number] [facility] There is no interpretation needed for this exam. IMAGING Interpretation and review of laboratory results Abnormal [facility] Performed by: [facility], [address] [place] [id number] CLIA ID: [id number] [facility] Interpretation and review of laboratory results Abnormal [facility] Radiology Study observation (narrative) Trina isabel Radiology Study observation (narrative) Trina isabel Nursing Noteon 06-18-2023 Nursing Note Pt states no need to contact family. RN on floor states she will call pt's son,. Normal [facility] Nursing Note Patients wallet and watch locked up with security. OR notified patient states she has latex allergy Patients purse and glasses taken to pacu Normal [facility] Op Noteon 06-18-2023 Op Note [facility] [address] [facility] [facility] [place] [facility] [address] Dept: [phone] Loc: [phone] Operative Report Patient Name: Ezra Gonzalez Date of : 1935 Date of Surgery: 06/18/23 Pre-operative diagnosis: Right intra-articular distal humerus fracture Post-operative diagnosis: Same Procedure(s): Open reduction internal fixation of right intra-articular distal humerus fracture Surgeon: Benitez Givens M.D. Still Operator(s): Lexa Aparicio M.D. Anesthesia: General and Regional [...] as well as medical complications such as AL, stroke, PE, DVT, and even . Pt [...] Lexa Aparicio MD at 06/18/23, 7:20 PM [facility] Op Note Date: 06/16/2023 - 06/18/2023 Location: [facility] OR Name: Ezra Gonzalez, : 1935, Diagnosis Pre-op Diagnosis * Closed displaced fracture of medial condyle of right humerus, initial encounter [S42.461A] Post-op Diagnosis * Closed displaced fracture of medial condyle of right humerus, initial encounter [S44.300N] Procedures OPEN REDUCTION INTERNAL FIXATION RIGHT DISTAL HUMERUS [address]387 - [place] [employer] HUMERAL SHFT FX W/PLATE/SCREWS W/WOCERCLAGE Surgeons * Benitez Givens - Primary Procedure Summary Anesthesia: * No anesthesia type entered * ASA: III Estimated Blood Loss: Minimal Drains: * None in log * Staff: Jira Developer: Vivian Herrera RN Scrub Person: Linda Alvarez [...] in 2 weeks -Ortho to follow. Normal [facility] PROCALCITONIN TESTon 024 PROCALCITONIN 0.06 ng/mL Normal 0.00-0.09 [facility] Comment on above: Result Comment: ORDE R COMMENTS: PCT <0.50 = Low risk of severe sepsis and/or septic shock. PCT >2.00 = High risk of severe sepsis and/or septic shock. Performed By: #### L [id number] ####Commercial Installer: ALEXANDRA BUSTAMANTE ([id number])[facility] ([facility])[address] [place] [address] Procalcitonin [Mass/Vol]on 0 06-18-2023 Interpretation and review of laboratory results Normal [facility] PCT <0.50 = Low risk of severe sepsis and/or septic shock. PCT >2.00 = High risk of severe sepsis and/or septic shock. [facility] Progress Noteon 06-18-2023 Progress Note Nutrition rescreen completed. Chart reviewed. Patient to be monitored and followed by the diet supply chain technician. Ele Butcher, DT [facility] Progress Note OCCUPATIONAL THERAPY [facility] Name/MRN: Ezra Gonzalez ([id number]) Date: 06/18/2023 OT eval and treat order received. Patient chart reviewed. Per Ortho note, "Plan for ORIF od R distal humerus." Will hold evaluation till after surgery. Louisa Cespedes, OT Normal [facility] Progress Note PHYSICAL THERAPY [facility] Name/MRN: Ezra Gonzalez ([id number]) Date: 06/18/2023 PT orders received and chart reviewed. Per ortho note, "Plan for ORIF R distal humerus". Will hold and attempt following surgery. Maryanne Neumann, PT [facility] ECG 12-LEADon 06-17-2023 ECG 12-LEAD IMPRESSION: Atrial fibrillation Probable left ventricular hypertrophy No previous ECG for comparison Electronically Signed On 06-17-2023 06:39:12 EDT by Thong Francois [facility] ED Nursing Noteon 06-17-2023 ED Nursing Note Patient resting in bed at this time, equal unlabored respirations noted and no acute distress, call león within reach Di Reyna RN 06/17/23 1153 [facility] ED Nursing Note Pt O2 desaturating t o mid 80s after receiving dilaudid IV. Pt placed on 2L NC and immediately back up to 95%. notified Alia Foster RN 06/17/23 1031 [facility] ED Nursing Note Pt upset with intermittent beeping of IV pump. RN made several attempts to reposition arm and flush line. IV pump will run and then become occluded. After fourth attempt at repositioning, pt called RN a nitwit. RN explained that it is preferable to not place a new line unless necessary. RN will request US IV line. Juanjo Pringle RN 06/16/238 Normal [facility] Laboratory - Chemistry and C hemistry - challengeon 06-17-2023 Glucose [Mass/Vol] 137 mg/dL High 70 - 100 mg/dL [facility] Laboratory - Coagulationon 0 06-17-2023 PT Coag (Bld) [Time] 14.5 s High 9.0 - 12.0 s [facility] No Panel Informationon 06-16 Interpretation and review of laboratory results Abnormal [facility] th Performed by: [facility], [address] [place] [address] CLIA ID: [id number] [facility] Atrial fibrillation Probable left ventricular hypertrophy No previous ECG for comparison Electronically Signed On 06-17-2023 06:39:12 EDT by Thong Arvizu D O - 06/17/2023 IMPRESSION: Atrial fibrillation Probable left ventricular hypertrophy No previous ECG for comparison Electronically Signed On 06-17-2023 06:39:12 EDT by Thong Francois [facility] Radiology Study observation (narrative) [facility] No Panel InformationOrdered By: Thong Francois on 06-17-2023 P [place] 0 degrees [facility] [employer] Work Phone: [place] Interval 0 ms [facility] [employer] Work Phone: QRS [place] -24 degrees [facility] [employer] Work Phone: QRSD Interval 103 ms [facility] h Work Phone: QT Interval 382 ms [facility] [employer] Work Phone: QTC Interval 442 ms [facility] [employer] Work Phone: T Wave [place] 31 degrees [facility] [employer] Work Phone: [facility] [employer] Work Phone: Nursing Noteon 06-17-2023 Nursing Note Patient home medication list updated, provider made aware. Normal [facility] PROTHROMBIN TIMEon INR Coag (PPP) [Relative time] 1.4 {INR} High 0.9-1.1 [facility] Comment on above: Result Comment: [...] Infarction Performed By: #### L [id number] #### Commercial Installer: ALEXANDRA BUSTAMANTE ([id number]) [facility] ([facility]) [address] [place] [address] PT Coag (PPP) [Time] 14.5 s High 9.0-12.0 [facility] Comment on above: Performed By: #### L [id number] #### Commercial Installer: ALEXANDRA BUSTAMANTE ([id number]) [facility] ([facility]) [address] [place] [address] PT Coag (Bld) [Time]on 06-16 INR Coag (PPP) [Relative time] 1.4 {INR} High 0.9 - 1.1 [facility] Comment on above: Recommended Anticoag ulant [...] Interpretation and review of laboratory results Abnormal [facility] Progress Noteon 06-17-2023 Progress Note Due to OR availability, case cancelled for today. Moved to tomorrow, 06/17. Ok for diet today. NPO @[place]. Keep splint C/D/I. Evette Viera MD Orthopaedic Surgery, PGY-5 [phone] Normal [facility] Vital signsOrdered By: Neeta Francois on 06-17-2023 Heart rate 80 /min bpm [facility] Work Phone: XR Chest Single viewon 06-16 No acute cardiopulmonary process identified. Other chronic findings as discussed. 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 [facility] Houston Chau MD - 06/17/2023 Patient Name: [...] Electronically Signed Date/Time: 06/17/2023 12:44 AM EDT [facility] Radiology Study observation (narrative) [facility] XR Chest Single viewOrdered By: Houston Chau on 06-17-2023 [facility] Work Phone: Absolute lymphocyte countOrd ered By: Lali Pimentel on 06-16-2023 Lymphocytes Auto (Unsp spec) [#/Vol] 3.86 10*3/uL 0.83-4.51 [facility] Automated lymphocyte count a s percentage of total leukocytesOrdered By: Lali Pimentel on 06-16-2023 Lymphocytes/100 WBC Auto (Unsp spec) 23.0 % 19-41 [facility] BASIC METABOLIC PANELon 05-29 Anion gap [Moles/Vol] 7 mmol/L Normal 3-13 [facility] Comment on above: Performed By: #### L [id number] ####Commercial Installer: ALEXANDRA BUSTAMANTE ([id number])[facility] ([facility])[address] [place] [address] [place] Calcium [Mass/Vol] 8.6 mg/dL Normal 8.4-10.4 [facility] Comment on above: Performed By: #### L [id number] ####Commercial Installer: ALEXANDRA BUSTAMANTE ([id number])[facility] ([facility] [place] [address] [place] Chloride [Moles/Vol] 99 mmol/L Normal 98-107 [facility] Comment on above: Performed By: #### L AB15 ####Commercial Installer: ALEXANDRA BUSTAMANTE ([id number])[facility] [place] [address] [place] CO2 [Moles/Vol] 29 mmol/L Normal 22-30 [facility] Comment on above: Performed By: #### L AB15 ####Commercial Installer: ALEXANDRA BUSTAMANTE ([id number])[facility])[address] [place] [address] Creatinine [Mass/Vol] 0.79 mg/dL Normal 0.52-1.04 [facility] Comment on above: Performed By: #### L AB15 ####Commercial Installer: ALEXANDRA BUSTAMANTE ([id number])[facility])[address] [place] [address] GLOMERULAR FILTRATION RATE ML/MIN/1.73 SQ M.PREDICTED 72.5 mL/min/1.73m*2 Normal >60.0 [facility] Comment on above: Result Comment: Calc ulation based on the Chronic Kidney Disease Epidemiology Collaboration (CKD-EPI) equation refit without adjustment for race Performed By: #### L AB15 ####Commercial Installer: ALEXANDRA BUSTAMANTE ([id number])[facility])[address] [place] [address] Glucose [Mass/Vol] 186 mg/dL High 70-100 [facility] Comment on above: Performed By: #### L AB15 ####Commercial Installer: ALEXANDRA BUSTAMANTE ([id number])[facility])[address] [place] [address] Potassium [Moles/Vol] 4.5 mmol/L Normal 3.5-5.1 [facility] Comment on above: Performed By: #### L AB15 ####Commercial Installer: ALEXANDRA BUSTAMANTE ([id number])[facility])[address] [place] [address] [place] Sodium [Moles/Vol] 136 mmol/L Normal 135-145 [facility] Comment on above: Performed By: #### L AB15 ####Commercial Installer: ALEXANDRA BUSTAMANTE ([id number])[facility])[address] [place] [address] [place] Urea nitrogen [Mass/Vol] 26 mg/dL High 7-17 [facility] Comment on above: Performed By: #### L AB15 ####Commercial Installer: ALEXANDRA BUSTAMANTE ([id number])[facility] ([facility])[address] [place] [address] BLOOD TYPE AND SCREEN GELon 06-16-2023 ABO GROUPING A Normal [facility] Comment on above: Performed By: #### L [id number] ####Commercial Installer: ALEXANDRA BUSTAMANTE ([id number])[facility] ([facility])[address] [place] [address] RH TYPE IN BLOOD Positive Normal [facility] Comment on above: Performed By: #### L [id number] ####Commercial Installer: ALEXANDRA BUSTAMANTE ([id number])[facility] ([facility])[address] [place] [address] Basic metabolic 1998 panelon 06-16-2023 Anion gap [Moles/Vol] 7 mmol/L 3 - 13 mmol/L [facility] Calcium [Mass/Vol] 8.6 mg/dL 8.4 - 10. 4 mg/dL [facility] Chloride [Moles/Vol] 99 mmol/L 98 - 10 7 mmol/L [facility] CO2 [Moles/Vol] 29 mmol/L 22 - 30 mmol/L [facility] Creatinine [Mass/Vol] 0.79 mg/dL 0.52 - 1.04 mg/dL [facility] GFR/1.73 sq M.predicted MDRD (S/P/Bld) [Vol rate/Area] 72.5 mL/min/{1.73_m2} - PINF [facility] Comment on above: Calculation based on the Chronic Kidney Disease Epidemiology Collaboration (CKD-EPI) equation refit without adjustment for race Glucose [Mass/Vol] 186 mg/dL High 70 - 100 mg/dL [facility] Interpretation and review of laboratory results Abnormal [facility] Potassium [Moles/Vol] 4.5 mmol/L 3.5 - 5.1 mmol/L [facility] Sodium [Moles/Vol] 136 mmol/L 135 - 145 mmol/L [facility] Urea nitrogen [Mass/Vol] 26 mg/dL High 7 - 17 mg/d L [facility] Basophil percentageOrdered B y: Lali Pimentel on 06-16-2023 Basophils/100 WBC (Bld) 0.4 % 0-1 [facility] Chloride [Moles/Vol] 104 mmol/L 98-107 [facility] Eosinophils/100 WBC (Bld) 1.3 % 0-5 [facility] Glucose [Mass/Vol] 191 mg/dL 74-106 [facility] Comment on above: Fasting Glucose resu lt greater than or equal to 126 mg/dL suggests DIABETES MELLITUS per A.D.A. criteria. Hemoglobin (Bld) [Mass/Vol] 13.6 g/dL 12.0-15.0 [facility] Monocytes/100 WBC (Bld) 7.0 % 0-10 [facility] Neutrophils (Bld) [#/Vol] 11.4 10*3/uL 2.0-7.7 [facility] Neutrophils/100 WBC (Bld) 67.8 % 47-70 [facility] Potassium [Moles/Vol] 3.4 mmol/L 3.5-5.1 [facility] Sodium [Moles/Vol] 140 mmol/L 136-145 [facility] WBC (Bld) [#/Vol] 16.8 10*3/uL 4.4-11.0 [facility] Blood type and Crossmatch pa ro (Bld)on 06-16-2023 Blood group antibody screen GEL Ql Negative [facility] CBC W Auto Differential pane l (Bld)on 06-16-2023 Basophils (Bld) [#/Vol] 0.0 10*3/uL 0.0 - 0.2 10*3/uL [facility] Basophils/100 WBC (Bld) 0.2 % 0.0 - 2.0 % [facility] Eosinophils (Bld) [#/Vol] 0.0 10*3/uL 0. 0 - 0.5 10*3/uL [facility] Eosinophils/100 WBC (Bld) 0.0 % 0.0 - 6.0 % [facility] Erythrocyte distribution width (RBC) [Ratio] 13.6 % 11.5 - 15.0 % [facility] Hematocrit (Bld) [Volume fraction] 38.9 % 35.0 - 47.0 % [facility] Hemoglobin (Bld) [Mass/Vol] 12.8 g/dL 11.7 - 16.0 g/dL [facility] Immature granulocytes (Bld) [#/Vol] 0.1 10*3/uL High NINF - 0.1 10*3/uL [facility] Immature granulocytes/100 WBC (Bld) 0.6 % 0.0 - 2.0 % [facility] Interpretation and review of laboratory results Abnormal [facility] th Lymphocytes (Bld) [#/Vol] 1.1 10*3/uL 1. 0 - 4.3 10*3/uL [facility] Lymphocytes/100 WBC (Bld) 6.5 % Low 15 .0 - 45.0 % [facility] MCH (RBC) [Entitic mass] 29.1 pg 26. 0 - 34.0 pg [facility] MCHC (RBC) [Mass/Vol] 32.9 % 30.5 - 36.0 % [facility] MCV (RBC) [Entitic vol] 88.4 fL 77.0 - 99.0 fL [facility] Monocytes (Bld) [#/Vol] 0.7 10*3/uL 0.0 - 0.9 10*3/uL [facility] Monocytes/100 WBC (Bld) 4.4 % Low 5.0 - 13.0 % [facility] Neutrophils (Bld) [#/Vol] 14.3 10*3/uL High 1. 8 - 7.5 10*3/uL [facility] Neutrophils/100 WBC (Bld) 88.3 % High 38 .0 - 82.0 % [facility] Nucleated RBC/100 WBC (Bld) [Ratio] 0.0 % [facility] Platelet mean volume (Bld) [Entitic vol] 9.9 fL 9.0 - 12.7 fL [facility] Platelets (Bld) [#/Vol] 357 10*3/uL 140 - 440 10*3/uL [facility] RBC (Bld) [#/Vol] 4.40 10*6/uL 3.80 - 5.2 0 10*6/uL [facility] WBC (Bld) [#/Vol] 16.2 10*3/uL High 3.6 - 10.7 10*3/uL [facility] CBC WITH AUTO DIFFERENTIALon 06-16-2023 Basophils (Bld) [#/Vol] 0.0 10*3/uL Normal 0.0-0.2 [facility] Comment on above: Performed By: #### L [id number] ####Commercial Installer: ALEXANDRA BUSTAMANTE ([id number])[facility])[address] [place] [address] Basophils/100 WBC (Bld) 0.2 % Normal 0.0-2.0 [facility] Comment on above: Performed By: #### L [id number] ####Commercial Installer: ALEXANDRA BUSTAMANTE ([id number])[facility])[address] [place] [address] Eosinophils (Bld) [#/Vol] 0.0 10*3/uL Normal 0.0-0.5 [facility] Comment on above: Performed By: #### L [id number] ####Commercial Installer: ALEXANDRA BUSTAMANTE ([id number])[facility])[address] [place] [address] Eosinophils/100 WBC (Bld) 0.0 % Normal 0.0-6.0 [facility] Comment on above: Performed By: #### L [id number] ####Commercial Installer: ALEXANDRA BUSTAMANTE ([id number])[facility])[address] [place] [address] Erythrocyte distribution width (RBC) [Ratio] 13.6 % Normal 11.5-15.0 [facility] Comment on above: Performed By: #### L [id number] ####Commercial Installer: ALEXANDRA BUSTAMANTE ([id number])[facility])[address] [place] [address] Hematocrit (Bld) [Volume fraction] 38.9 % Normal 35.0-47.0 [facility] Comment on above: Performed By: #### L [id number] ####Commercial Installer: ALEXANDRA BUSTAMANTE ([id number])[facility])[address] [place] [address] Hemoglobin (Bld) [Mass/Vol] 12.8 g/dL Normal 11.7-16.0 [facility] Comment on above: Performed By: #### L [id number] ####Commercial Installer: ALEXANDRA BUSTAMANTE ([id number])[facility] ([facility])[address] [place] [address] IMMATURE GRANS % 0.6 % Normal 0.0-2.0 [facility] Comment on above: Performed By: #### L [id number] ####Commercial Installer: ALEXANDRA BUSTAMANTE ([id number])[facility])[address] [place] [address] IMMATURE GRANS ABSOLUTE 0.1 10*3/uL High <0.1 [facility] Comment on above: Performed By: #### L [id number] ####Commercial Installer: ALEXANDRA BUSTAMANTE ([id number])[facility])[address] [place] [address] Lymphocytes (Bld) [#/Vol] 1.1 10*3/uL Normal 1.0-4.3 [facility] Comment on above: Performed By: #### L [id number] ####Commercial Installer: ALEXANDRA BUSTAMANTE ([id number])[facility])[address] [place] [address] Lymphocytes/100 WBC (Bld) 6.5 % Low 15.0-45.0 [facility] Comment on above: Performed By: #### L [id number] ####Commercial Installer: ALEXANDRA BUSTAMANTE ([id number])[facility])[address] [place] [address] MCH (RBC) [Entitic mass] 29.1 pg Normal 26.0-34.0 [facility] Comment on above: Performed By: #### L [id number] ####Commercial Installer: ALEXANDRA BUSTAMANTE ([id number])[facility])[address] [place] [address] MCHC 32.9 % Normal 30.5-36.0 [facility] Comment on above: Performed By: #### L [id number] ####Commercial Installer: ALEXANDRA BUSTAMANTE ([id number])[facility])[address] [place] [address] MCV (RBC) [Entitic vol] 88.4 fL Normal 77.0-99.0 [facility] Comment on above: Performed By: #### L [id number] ####Commercial Installer: ALEXANDRA BUSTAMANTE ([id number])[facility] ([facility])[address] [place] [address] Monocytes (Bld) [#/Vol] 0.7 10*3/uL Normal 0.0-0.9 [facility] Comment on above: Performed By: #### L [id number] ####Commercial Installer: ALEXANDRA BUSTAMANTE ([id number])[facility] ([facility])[address] [place] [address] Monocytes/100 WBC (Bld) 4.4 % Low 5.0-13.0 [facility] Comment on above: Performed By: #### L [id number] ####Commercial Installer: ALEXANDRA BUSTAMANTE ([id number])[facility])[address] [place] [address] NEUTROPHILS ABSOLUTE 14.3 10*3/uL High 1.8-7.5 [facility] Comment on above: Performed By: #### L [id number] ####Commercial Installer: ALEXANDRA BUSTAMANTE ([id number])[facility] ([facility])[address] [place] [address] Neutrophils/100 WBC (Bld) 88.3 % High 38.0-82.0 [facility] Comment on above: Performed By: #### L [id number] ####Commercial Installer: ALEXANDRA BUSTAMANTE ([phone])[facility] ([facility])[address] [place] [address] NRBC 0.0 /100 WBCs Normal 0.0-2.0 [facility] Comment on above: Performed By: #### L [id number] ####Commercial Installer: ALEXANDRA BUSTAMANTE ([phone])[facility])[address] [place] [address] Platelet mean volume (Bld) [Entitic vol] 9.9 fL Normal 9.0-12.7 [facility] Comment on above: Performed By: #### L [id number] ####Commercial Installer: ALEXANDRA BUSTAMANTE ([phone])[facility] ([facility])[address] [place] [address] Platelets (Bld) [#/Vol] 357 10*3/uL Normal 140-440 [facility] Comment on above: Performed By: #### L [id number] ####Commercial Installer: ALEXANDRA BUSTAMANTE ([phone])[facility] ([facility])[address] [place] [address] RBC (Bld) [#/Vol] 4.40 10*6/uL Normal 3.80-5.20 [facility] Comment on above: Performed By: #### L [id number] ####Commercial Installer: ALEXANDRA BUSTAMANTE ([phone])[facility] ([facility])[address] [place] [address] WBC (Bld) [#/Vol] 16.2 10*3/uL High 3.6-10.7 [facility] Comment on above: Performed By: #### L [id number] ####Commercial Installer: ALEXANDRA BUSTAMANTE ([phone])[facility] ([facility])[address] [place] [address] CT ELBOW RIGHT WO IV CONTRAS Ton 06-16-2023 CT ELBOW RIGHT WO IV CONTRAST Patient Name: [facility]ZRA [facility]ONZALEZ [facility] 1935 [id number] Exam Date/Time: 06/16/2023 18:01 Procedure: CT ELBOW [...] Injury (Pt arrives [facility] from [facility] with complaints of right elbow fracture. Patient was sent here for ortho consult. No pain on arrival. Arrives with right arm splinted.)Closed displaced fracture of medial condyle of right humerus, initial encounter Normal [facility] CT Elbow - right WO contrast on 06-16-2023 Impression: Extensively comminuted supracondylar humerus fracture. The fracture has multiple foci of articular extension to the lateral and central aspect of the condyle. Report Dictated on Electronically Signed By: Pastor Francisco MD Electronically Signed Date/Time: 06/16/2023 6:13 PM T [facility] Patient Name: EZRA GONZALEZ : [...] process fracture. Joint effusion. Decreased osseous mineralization. [facility] Pastor Francisco MD - 06/16/2023 [...] Electronically Signed Date/Time: 06/16/2023 6:13 PM EDT [facility] Radiology Study observation (narrative) [facility] chalo Consulton 06-16-2023 Consult Ortho Consult Patient: Ezra Gonzalez Date of : 1935 Acct: [id number] PCP: No primary care provider on file. Date of Admission: 06/16/2023 Date of Service: Pt seen/examined on 06/16/2023 Chief Complaint: right distal humerus fracture History Of Present Illness: This is a 87 y.o. right hand dominant female who presents with a right distal humerus fracture after a fall at home. Patient originally presented to [facility] where she was splinted and transferred to [facility] ED for ortho eval. Patient denies numbness, tingling, or weakness. Denies pain elsewhere and denies head trauma or LOC. 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 Patient has prior ortho surgery history of bilateral TKAs and right shoulder surgery, left carpal tunnel release, all at [facility]. Denies alcohol, tobacco, drug use. Patient ambulation [...] (Oral) Resp 19 Ht 1.6 m (5' 3") Wt 78.9 kg (174 lb) SpO2 97% [...] Type and Screen: No results found for: "RH", "LAB (more content not included)... Normal [facility] Determination of erythrocyte mean corpuscular volume (MCV)Ordered By: Lali Pimentel on 06-16-2023 MCV (RBC) [Entitic vol] 90.3 fL 81-99 [facility] ED Provider Noteon 4 ED Provider Note Emergency Department Encounter [facility] EMERGENCY DEPT Patient: Ezra Gonzalez : [...] for clarification.) Sae Conde MD Acute Care [facility] Sae Conde MD 06/16/[address] [place] [address] ED Provider Note EMERGENCY DEPARTMENT ENCOUNTER Pt Name: Ezra Gonzalez Birthdate 1935 Date of evaluation: 06/16/2023 ED Provider: NADIA Ruiz CHIEF COMPLAINT Chief Complaint Patient presents with Arm Injury Pt arrives via [facility] from [facility] with complaints of right elbow fracture. Patient was sent here for ortho consult. No pain on arrival. Arrives with right arm splinted. HISTORY OF PRESENT ILLNESS (Location/Symptom, Timing/Onset, Context/Setting, Quality, Duration, Modifying Factors, Severity) Note limiting factors. I wore appropriate PPE for the entirety of this encounter. HPI Erza Gonzalez is a 87 y.o. female who [...] injury anywhere else. Patient was evaluated at [facility] emergency department prior to arrival and was noted to have a distal humerus fracture. Patient was transferred to [facility] ED for orthopedic consultation. Patient denies [...] 4.4 (*) (more content not included)... Normal [facility] Erythrocyte distribution wid th ratioOrdered By: Lali Pimentel on 06-16-2023 Erythrocyte distribution width (RBC) [Ratio] 13.3 % 11.6-14.6 [facility] Erythrocyte distribution wid th standard deviationOrdered By: Lali Pimentel on 06-16-2023 Erythrocyte distribution width (RBC) [Entitic vol] 43.9 fL 35.1-43.9 [facility] Hematocrit Auto (Bld) [Volum e fraction]Ordered By: Lali Pimentel on 06-16-2023 Hematocrit (Bld) [Volume fraction] 42.6 % 37-47 [facility] Immature granulocytes/100 WB C Auto (Bld)Ordered By: Lali Pimentel on 06-16-2023 Immature granulocytes/100 WBC (Bld) 0.500 % 0.0-0.9 [facility] Comment on above: IG% - Immature Granu locytes (promyelocytes, myelocytes and metamyelocytes) > 1% indicates that a LEFT SHIFT is Present. Laboratory - Blood bankon ABO group Nom (Bld) A [facility] D Ag Ql (RBC) Positive [facility] Laboratory - Chemistry and C hemistry - challengeOrdered By: Lali Pimentel on 06-16-2023 CO2 [Moles/Vol] 31.0 mmol/L 21.0-32.0 [facility] Urea nitrogen/Creatinine [Mass ratio] 20.9 mg/mg 10-20 [facility] Laboratory - Coagulationon 0 06-16-2023 PT Coag (Bld) [Time] 22.3 s High 9.0 - 12.0 s [facility] Laboratory - CoagulationOrde red By: Lali Pimentel on 06-16-2023 INR Coag (Bld) [Relative time] 2.2 {INR} [facility] PT Coag (PPP) [Time] 24.3 s 11.7-14.9 [facility] Laboratory - Hematology and Cell countsOrdered By: Lali Pimentel on 06-16-2023 MCH (RBC) [Entitic mass] 28.8 pg 27.0-32.0 [facility] MCHC (RBC) [Mass/Vol] 31.9 g/dL 32-36 [facility] Nucleated RBC/100 WBC (Bld) [Ratio] 0 % 0-5 [facility] Platelet mean volume (Bld) [Entitic vol] 9.9 fL 6.2-12.0 [facility] Platelets (Bld) [#/Vol] 414 10*3/uL 150-450 [facility] No Panel Informationon 06-15 [facility] No Panel InformationOrdered By: Lali Pimentel on 06-16-2023 Estimated Creatinine Clearance Calc 35.56 ml/min [facility] Estimated GFR (MDRD) Amer 57 mL/min >60 [facility] Comment on above: GFR Calc Estimated GFR (MDRD) Non-Af Amer 47 mL/min >60 [facility] Comment on above: Non- GFR Calc PROTHROMBIN TIMEon INR Coag (PPP) [Relative time] 2.2 {INR} High 0.9-1.1 [facility] Comment on above: Result Comment: [...] to prevent Myocardial Infarction Performed By: #### Akanksha [id number] ####Commercial Installer: ALEXANDRA BUSTAMANTE ([phone])[facility] ([facility])[address] [place] [address] PT Coag (PPP) [Time] 22.3 s High 9.0-12.0 [facility] Comment on above: Performed By: #### Akanksha [id number] ####Commercial Installer: ALEXANDRA BUSTAMANTE ([phone])[facility] ([facility])[address] [place] [address] PT Coag (Bld) [Time]on 06-15 INR Coag (PPP) [Relative time] 2.2 {INR} High 0.9 - 1.1 [facility] Comment on above: Recommended Anticoag ulant [...] of laboratory results Abnormal [facility] RBC Auto (Bld) [#/Vol]Ordere d By: Lali Pimentel on 06-16-2023 RBC (Bld) [#/Vol] 4.72 10*6/uL 4.2-5.4 [facility] Serum or plasma calcium viktoria urement (mass/volume)Ordered By: Lali Pimentel on 06-16-2023 Calcium [Mass/Vol] 8.8 mg/dL 8.5-10.1 [facility] Serum or plasma creatinine m easurement (mass/volume)Ordered By: Lali Pimentel on 06-16-2023 Creatinine [Mass/Vol] 1.15 mg/dL 0.55-1.02 [facility] Comment on above: The validity of the calculated GFR & GFRAA in patients over 70 years has not been determined. Clinical correlation is essential. Serum or plasma urea nitroge n measurement (mass/volume)Ordered By: Lali Pimentel on 06-16-2023 Urea nitrogen [Mass/Vol] 24 mg/dL 10-15 [facility] Thin prep Papanicolaou smear with manual screeningOrdered By: Lali Pimentel on 06-16-2023 Thin prep Papanicolaou smear with manual screening 5 08-12 [facility] XR Elbow - right 2 Viewson 0 06-16-2023 Patient Name: EZRA GONZALEZ : 1935 [place] [id number] Exam Date/Time: 06/16/2023 15:20 Procedure: XR ELBOW [...] MD Electronically Signed Date/Time: 06/16/2023 3:38 PM [facility] Sae Dudley MD - 06/16/2023 Patient Name: EZRA GONZALEZ : 1935 [facility]#: [id number] Exam Date/Time: 06/16/2023 15:20 Procedure: XR ELBOW [...] MD Electronically Signed Date/Time: 06/16/2023 3:38 PM [facility] Radiology Study observation (narrative) [facility] XR Elbow - right 2 ViewsOrde red By: Sae Dudley on 06-16-2023 [facility] Work Phone: XR Elbow - right 3 [...] MD Electronically Signed Date/Time: 06/16/2023 3:24 PM [facility] Patient Name: EZRA GONZALEZ : 1935 [facility]#: [id number] Exam Date/Time: 06/16/2023 14:30 Procedure: XR ELBOW 3+ VIEWS RIGHT Ordering Provider: TENORIO KASSIDY Reason For Exam: comminuted slightly displaced supracondylar fx of distal humerus with extension to the medial epicondyle - seen at [place] cannot see imaging Examination: Right elbow Clinical Indication: Pain Comparison: None [facility] Pastor Francisco MD - 06/16/2023 Patient Name: EZRA GONZALEZ : 1935 Exam Date/Time: 06/16/2023 14:30 Procedure: XR ELBOW 3+ VIEWS RIGHT Ordering Provider: TENORIO KASSIDY Reason For Exam: comminuted slightly displaced supracondylar fx of distal humerus with extension to the medial epicondyle - seen at [place] cannot see imaging Examination: Right elbow Clinical [...] Electronically Signed Date/Time: 06/16/2023 3:24 PM EDT [facility] Radiology Study observation (narrative) [facility]th XR Elbow - right 3 ViewsOrde red By: Pastor Francisco on 06-16-2023 [facility] Work Phone: XR Shoulder - right 2 [...] Electronically Signed Date/Time: 06/16/2023 3:30 PM EDT [facility] Patient Name: EZRA GONZALEZ : [...] glenohumeral joint. Acromioclavicular joint appears grossly intact. [facility] Reji Lemus MD - 06/16/2023 Patient Name: EZRA GONZALEZ : 1935 [place] [id number] Exam Date/Time: 06/16/2023 15:20 Procedure: XR SHOULDER [...] Electronically Signed Date/Time: 06/16/2023 3:30 PM EDT [facility] Radiology Study observation (narrative) [facility] - right 2 ViewsO rdered By: Reji Lemus on 06-16-2023 [facility] [employer] Work Phone: Capillary blood internationa l normalized ratio (INR)Ordered By: Alexandra Hagen on 05-30-2023 INR Coag (BldC) [Relative time] 1.7 [facility] Comment on above: Critical Value > 4.0 Whole blood prothrombin time Ordered By: Alexandra Hagen on 05-30-2023 PT Coag (Bld) [Time] 18.0 s 11.7-14.9 [facility] Absolute lymphocyte countOrd ered By: Alexandra Hagen on 05-12-2023 Lymphocytes Auto (Unsp spec) [#/Vol] 1.60 10*3/uL 0.83-4.51 [facility] Automated lymphocyte count a s percentage of total leukocytesOrdered By: Alexandra Hagen on 05-12-2023 Lymphocytes/100 WBC Auto (Unsp spec) 20.2 % 19-41 [facility] Basophil percentageOrdered B y: Alexandra Hagen on 05-12-2023 Basophils/100 WBC (Bld) 0.5 % 0-1 [facility] Chloride [Moles/Vol] 109 mmol/L 98-107 [facility] Eosinophils/100 WBC (Bld) 3.7 % 0-5 [facility] Glucose [Mass/Vol] 206 mg/dL 74-106 [facility] Comment on above: Glucose result great er than or equal to 200 mg/dLsuggests DIABETES MELLITUS per A.D.A. criteria. Hemoglobin (Bld) [Mass/Vol] 13.1 g/dL 12.0-15.0 [facility] Monocytes/100 WBC (Bld) 7.8 % 0-10 [facility] Neutrophils (Bld) [#/Vol] 5.3 10*3/uL 2.0-7.7 [facility] Neutrophils/100 WBC (Bld) 67.5 % 47-70 [facility] Potassium [Moles/Vol] 4.6 mmol/L 3.5-5.1 [facility] Comment on above: Moderate Hemolysis, Result may be falsely increased. Sodium [Moles/Vol] 140 mmol/L 136-145 [facility] WBC (Bld) [#/Vol] 7.9 10*3/uL 4.4-11.0 [facility] Determination of erythrocyte mean corpuscular volume (MCV)Ordered By: Alexandra Hagen on 05-12-2023 MCV (RBC) [Entitic vol] 93.1 fL 81-99 [facility] Erythrocyte distribution wid th ratioOrdered By: Alexandra Hagen on 05-12-2023 Erythrocyte distribution width (RBC) [Ratio] 13.5 % 11.6-14.6 [facility] Erythrocyte distribution wid th standard deviationOrdered By: Alexandra Hagen on 05-12-2023 Erythrocyte distribution width (RBC) [Entitic vol] 46.0 fL 35.1-43.9 [facility] Hematocrit Auto (Bld) [Volum e fraction]Ordered By: Alexandra Hagen on 05-12-2023 Hematocrit (Bld) [Volume fraction] 41.8 % 37-47 [facility] Immature granulocytes/100 WB C Auto (Bld)Ordered By: Alexandra Hagen on 05-12-2023 Immature granulocytes/100 WBC (Bld) 0.300 % 0.0-0.9 [facility] Comment on above: IG% - Immature Granu locytes (promyelocytes, myelocytes and metamyelocytes) > 1% indicates that a LEFT SHIFT is Present. Laboratory - Chemistry and C hemistry - challengeOrdered By: Alexandra Hagen on 05-12-2023 CO2 [Moles/Vol] 25.0 mmol/L 21.0-32.0 [facility] Urea nitrogen/Creatinine [Mass ratio] 13.7 mg/mg 10-20 [facility] Laboratory - Hematology and Cell countsOrdered By: Alexandra Hagen on 05-12-2023 MCH (RBC) [Entitic mass] 29.2 pg 27.0-32.0 [facility] MCHC (RBC) [Mass/Vol] 31.3 g/dL 32-36 [facility] Nucleated RBC/100 WBC (Bld) [Ratio] 0 % 0-5 [facility] Platelet mean volume (Bld) [Entitic vol] 10.6 fL 6.2-12.0 [facility] Platelets (Bld) [#/Vol] 272 10*3/uL 150-450 [facility] No Panel InformationOrdered By: Alexandra Hagen on 05-12-2023 Estimated GFR (MDRD) Amer 53 mL/min >60 [facility] Comment on above: GFR Calc Estimated GFR (MDRD) Non-Af Amer 43 mL/min >60 [facility] Comment on above: Non- GFR Calc RBC Auto (Bld) [#/Vol]Ordere d By: Alexandra Hagen on 05-12-2023 RBC (Bld) [#/Vol] 4.49 10*6/uL 4.2-5.4 [facility] Serum or plasma calcium viktoria urement (mass/volume)Ordered By: Alexandra Hagen on 05-12-2023 Calcium [Mass/Vol] 8.5 mg/dL 8.5-10.1 [facility] Serum or plasma creatinine m easurement (mass/volume)Ordered By: Alexandra Hagen on 05-12-2023 Creatinine [Mass/Vol] 1.24 mg/dL 0.55-1.02 [facility] Comment on above: The validity of the calculated GFR & GFRAA in patients over 70 years has not been determined. Clinical correlation is essential. Serum or plasma urea nitroge n measurement (mass/volume)Ordered By: Alexandra Hagen on 05-12-2023 Urea nitrogen [Mass/Vol] 17 mg/dL 10-15 [facility] Thin prep Papanicolaou smear with manual screeningOrdered By: Alexandra Hagen on 05-12-2023 Thin prep Papanicolaou smear with manual screening 6 08-12 [facility] Whole blood hemoglobin A1c/t otal hemoglobin ratio (mass fraction)Ordered By: Alexandra Hagen on 05-12-2023 HbA1c (Bld) [Mass fraction] 6.8 % 3.8-5.6 [facility] Comment on above: Normal < 5.7 % Predi abetic 5.7 - 6.4 % Diabetic >or= 6.5 % Please note range changes. Capillary blood internationa l normalized ratio (INR)Ordered By: Alexandra Hagen on 05-01-2023 INR Coag (BldC) [Relative time] 2.0 [facility] Comment on above: Critical Value > 4.0 Whole blood prothrombin time Ordered By: Alexandra Hagen on 05-01-2023 PT Coag (Bld) [Time] 21.0 s 11.7-14.9 [facility] International normalized rat io (INR) calculationOrdered By: Alexandra Hagen on 04-17-2023 INR Coag (PPP) [Relative time] 1.8 {INR} [facility] Laboratory - CoagulationOrde red By: Alexandra Hagen on 04-17-2023 PT Coag (PPP) [Time] 21.0 s 11.7-14.9 [facility] Laboratory - CoagulationOrde red By: Alexandra Hagen on 03-20-2023 INR Coag (Bld) [Relative time] 2.4 {INR} [facility] Comment on above: Critical Value > 4.0 Whole blood prothrombin time Ordered By: Alexandra Hagen on 03-20-2023 PT Coag (Bld) [Time] 25.7 s 11.7-14.9 [facility] Basophil percentageOrdered B y: Alexandra Hagen on 02-21-2023 Bilirubin [Mass/Vol] 0.60 mg/dL 0.20-1.00 [facility] Comment on above: For patients on eltr ombopag therapy, use of Dimension [place] TBIL is not recommended. Chloride [Moles/Vol] 107 mmol/L 98-107 [facility] Cholesterol [Mass/Vol] 127 mg/dL <200 [facility] Comment on above: <200 mg/dL Desirable 200-240 mg/dL Borderline >240 mg/dL High Risk Glucose [Mass/Vol] 134 mg/dL 74-106 [facility] Comment on above: Fasting Glucose resu lt greater than or equal to 126 mg/dL suggests DIABETES MELLITUS per A.D.A. criteria. Potassium [Moles/Vol] 4.2 mmol/L 3.5-5.1 [facility] Protein [Mass/Vol] 6.2 g/dL 6.4-8.2 [facility] Sodium [Moles/Vol] 138 mmol/L 136-145 [facility] Triglyceride [Mass/Vol] 102 mg/dL <199 [facility] Comment on above: The drugs N-Acetylcy steine and Metamizole may falsely depress this assay.Serum Triglycerides Reference Interval Normal <150 mg/dL Borderline high 150 - 199 mg/dL High 200 - 499 mg/dL Very High > or = 500 mg/dL WBC (Bld) [#/Vol] 7.7 10*3/uL 4.4-11.0 [facility] Blood erythrocytes count (nu mber/volume)Ordered By: Alexandra Hagen on 02-21-2023 RBC (Bld) [#/Vol] 4.19 10*6/uL 4.2-5.4 [facility] Blood hemoglobin measurement (mass/volume)Ordered By: Alexandra Hagen on 02-21-2023 Hemoglobin (Bld) [Mass/Vol] 12.5 g/dL 12.0-15.0 [facility] Blood platelet mean volumeOr dered By: Alexandra Hagen on 02-21-2023 Platelet mean volume (Bld) [Entitic vol] 10.8 fL 6.2-12.0 [facility] Determination of erythrocyte mean corpuscular volume (MCV)Ordered By: Alexandra Hagen on 02-21-2023 MCV (RBC) [Entitic vol] 91.2 fL 81-99 [facility] Hematocrit Auto (Bld) [Volum e fraction]Ordered By: Alexandra Hagen on 02-21-2023 Hematocrit (Bld) [Volume fraction] 38.2 % 37-47 [facility] INR in Blood by Coagulation assayOrdered By: Alexandra Hagen on 02-21-2023 INR Coag (Bld) [Relative time] 2.3 {INR} [facility] Laboratory - Chemistry and C hemistry - challengeOrdered By: Alexandra Hagen on 02-21-2023 ALP [Catalytic activity/Vol] 84 U/L 45-117 [facility] ALT [Catalytic activity/Vol] 11 U/L 13-56 [facility] CO2 [Moles/Vol] 27.0 mmol/L 21.0-32.0 [facility] Globulin (S) [Mass/Vol] 3.3 g/dL 2.2-4.2 [facility] Urea nitrogen/Creatinine [Mass ratio] 14.0 mg/mg 10-20 [facility] Laboratory - CoagulationOrde red By: Alexandra Hagen on 02-21-2023 PT Coag (PPP) [Time] 25.3 s 11.7-14.9 [facility] Laboratory - Hematology and Cell countsOrdered By: Alexandra Hagen on 02-21-2023 Erythrocyte distribution width (RBC) [Entitic vol] 44.8 fL 35.1-43.9 [facility] Erythrocyte distribution width (RBC) [Ratio] 13.4 % 11.6-14.6 [facility] MCH (RBC) [Entitic mass] 29.8 pg 27.0-32.0 [facility] MCHC Auto (RBC) [Mass/Vol]Or dered By: Alexandra Hagen on 02-21-2023 MCHC (RBC) [Mass/Vol] 32.7 g/dL 32-36 [facility] No Panel InformationOrdered By: Alexandra Hagen on 02-21-2023 Estimated GFR (MDRD) Amer 68 mL/min >60 [facility] Comment on above: GFR Calc Estimated GFR (MDRD) Non-Af Amer 56 mL/min >60 [facility] Comment on above: Non- GFR Calc Platelets bldOrdered By: Alexandra Hagen on 02-21-2023 Platelets (Bld) [#/Vol] 297 10*3/uL 150-450 [facility] Serum or plasma albumin viktoria urement (mass/volume)Ordered By: Alexandra Hagen on 02-21-2023 Albumin [Mass/Vol] 2.9 g/dL 3.2-5.0 [facility] Serum or plasma albumin/glob ulin mass ratioOrdered By: Alexandra Hagen on 02-21-2023 Albumin/Globulin [Mass ratio] 0.9 {ratio} 0.9-2.4 [facility] Serum or plasma calcium viktoria urement (mass/volume)Ordered By: Alexandra Hagen on 02-21-2023 Calcium [Mass/Vol] 8.4 mg/dL 8.5-10.1 [facility] Serum or plasma cholesterol in HDL measurement (mass/volume)Ordered By: Alexandra Hagen on 02-21-2023 Cholesterol in HDL [Mass/Vol] 50 mg/dL >40 [facility] Comment on above: The drugs N-Acetylcy steine and Metamizole may falsely depress this assay. Reference Range HDL <40 mg/dL Low HDL Cholesterol HDL >or= 60 mg/dL High HDL Cholesterol Serum or plasma cholesterol in VLDL measurement (mass/volume)Ordered By: Alexandra Hagen on 02-21-2023 Cholesterol in VLDL [Mass/Vol] 20 mg/dL 5-40 [facility] Serum or plasma creatinine m easurement (mass/volume)Ordered By: Alexandra Hagen on 02-21-2023 Creatinine [Mass/Vol] 1.00 mg/dL 0.55-1.02 [facility] Comment on above: The validity of the calculated GFR & GFRAA in patients over 70 years has not been determined. Clinical correlation is essential. Serum or plasma low density lipoprotein (LDL) cholesterol measurement (mass/volume)Ordered By: Alexandra Hagen on 02-21-2023 Cholesterol in LDL [Mass/Vol] 57 mg/dL 0-130 [facility] Serum or plasma urea nitroge n measurement (mass/volume)Ordered By: Alexandra Hagen on 02-21-2023 Urea nitrogen [Mass/Vol] 14 mg/dL 7-18 [facility] Thin prep Papanicolaou smear with manual screeningOrdered By: Alexandra Hagen on 02-21-2023 Thin prep Papanicolaou smear with manual screening 16 U/L 15-37 [facility] [facility] Thin [facility] Papanicolaou smear with manual screening 4 5-15 [facility] Albumin Elph [Mass/Vol]Order ed By: Anant Juarez on 01-20-2023 Albumin [Mass/Vol] 3.4 g/dL 2.9-4.4 [facility] Basophil percentageOrdered B y: Anant Juarez on 01-20-2023 Basophil percentage Comment . [facility] Comment on above: No monoclonality det ected.Performed at: - [address] [id number] Director: Master Vee PhD, Phone: [phone] Interpretation of serum or p lasma protein pattern by immunofixation (narrative resultOrdered By: Anant Juarez on 01-20-2023 Protein Fractions Immunofixation Manuel [Interp] See comment [facility] Comment on above: Result: Not Observed No Panel InformationOrdered By: Anant Juarez on 01-20-2023 Addendum Document Comment . [facility] Comment on above: Protein electrophore sis scan will follow via computer,mail, or health information systems technician delivery. Serum [id number] measu rement by electrophoresisOrdered By: Anant Juarez on 01-20-2023 Alpha 1 globulin Elph [Mass/Vol] 0.3 g/dL 0.0-0.4 [facility] Alpha 1 globulin Elph [Mass/Vol] 0.9 g/dL 0.4-1.0 [facility] Serum globulin measurement ( mass/volume)Ordered By: Anant Juarez on 01-20-2023 Globulin (S) [Mass/Vol] 3.0 g/dL 2.2-3.9 [facility] Serum or plasma IgA measurem ent (mass/volume)Ordered By: Anant Juarez on 01-20-2023 IgA [Mass/Vol] 158 mg/dL 64-422 [facility] Serum or plasma IgG measurem ent (mass/volume)Ordered By: Anant Juarez on 01-20-2023 IgG [Mass/Vol] 847 mg/dL [phone] [facility] Serum or plasma IgM measurem ent (mass/volume)Ordered By: Anant Juarez 01-20-2023 IgM [Mass/Vol] 48 mg/dL 26-217 [facility] Serum or plasma beta globuli n measurement by electrophoresis (mass/volume)Ordered By: Anant Juarez 01-20-2023 Beta globulin Elph [Mass/Vol] 1.0 g/dL 0.7-1.3 [facility] Serum or plasma gamma globul in measurement by electrophoresis (mass/volume)Ordered By: Anant Juarez on 01-20-2023 Gamma globulin Elph [Mass/Vol] 0.7 g/dL 0.4-1.8 [facility] Serum or plasma immunoelectr ophoresis interpretation (nominal result)Ordered By: Anant Juarez on 01-20-2023 Interpretation IEP [Interp] Comment . [facility] Comment on above: No monoclonality det ected. Thin prep Papanicolaou smear with manual screeningOrdered By: Anant Juarez on 01-20-2023 Thin prep Papanicolaou smear with manual screening 1.2 0.7-1.7 [facility] Total protein bloodOrdered B y: Anant Juarez on 01-20-2023 Protein [Mass/Vol] 6.4 g/dL 6.0-8.5 [facility] Laboratory - CoagulationOrde red By: Alexandra Hagen on 01-16-2023 INR Coag (Bld) [Relative time] 2.2 {INR} [facility] Comment on above: Critical Value > 4.0 Whole blood prothrombin time Ordered By: Alexandra Hagen on 01-16-2023 PT Coag (Bld) [Time] 24.2 s 11.7-14.9 [facility] Absolute lymphocyte countOrd ered By: Lynn Horn on 12-28-2022 Lymphocytes Auto (Unsp spec) [#/Vol] 1.57 10*3/uL 0.83-4.51 [facility] Basophil percentageOrdered B y: Lynn Horn on 12-28-2022 Basophils/100 WBC (Bld) 0.6 % 0-1 [facility] Chloride [Moles/Vol] 108 mmol/L 98-107 [facility] Eosinophils/100 WBC (Bld) 3.0 % 0-5 [facility] Glucose [Mass/Vol] 117 mg/dL 74-106 [facility] Comment on above: Fasting Glucose resu lt from 100 to 125 mg/dL suggests IMPAIRED HOMEOSTASIS per A.D.A. criteria. Neutrophils (Bld) [#/Vol] 5.3 10*3/uL 2.0-7.7 [facility] Neutrophils/100 WBC (Bld) 66.8 % 47-70 [facility] Potassium [Moles/Vol] 3.9 mmol/L 3.5-5.1 [facility] Sodium [Moles/Vol] 138 mmol/L 136-145 [facility] WBC (Bld) [#/Vol] 7.9 10*3/uL 4.4-11.0 [facility] Blood erythrocytes count (nu mber/volume)Ordered By: Lynn Horn on 12-28-2022 RBC (Bld) [#/Vol] 4.32 10*6/uL 4.2-5.4 [facility] Blood hemoglobin measurement (mass/volume)Ordered By: Lynn Horn on 12-28-2022 Hemoglobin (Bld) [Mass/Vol] 12.8 g/dL 12.0-15.0 [facility] Blood lymphocytes/100 leukoc ytesOrdered By: Lynn Horn on 12-28-2022 Lymphocytes/100 WBC (Bld) 19.8 % 19-41 [facility] Blood monocytes/100 leukocyt esOrdered By: Lynn Horn on 12-28-2022 Monocytes/100 WBC (Bld) 9.5 % 0-10 [facility] Blood platelet mean volumeOr dered By: Lynn Horn on 12-28-2022 Platelet mean volume (Bld) [Entitic vol] 10.6 fL 6.2-12.0 [facility] Determination of erythrocyte mean corpuscular volume (MCV)Ordered By: Lynn Horn on 12-28-2022 MCV (RBC) [Entitic vol] 91.0 fL 81-99 [facility] Hematocrit Auto (Bld) [Volum e fraction]Ordered By: Lynn Horn on 12-28-2022 Hematocrit (Bld) [Volume fraction] 39.3 % 37-47 [facility] INR in Blood by Coagulation assayOrdered By: Lynn Horn on 12-28-2022 INR Coag (Bld) [Relative time] 2.1 {INR} [facility] Laboratory - Chemistry and C hemistry - challengeOrdered By: Lynn Horn on 12-28-2022 CO2 [Moles/Vol] 27.0 mmol/L 21.0-32.0 [facility] Urea nitrogen/Creatinine [Mass ratio] 15.7 mg/mg 10-20 [facility] Laboratory - CoagulationOrde red By: Lynn Horn on 12-28-2022 PT Coag (PPP) [Time] 23.8 s 11.7-14.9 [facility] Laboratory - Hematology and Cell countsOrdered By: Lynn Horn on 12-28-2022 Erythrocyte distribution width (RBC) [Entitic vol] 43.0 fL 35.1-43.9 [facility] Erythrocyte distribution width (RBC) [Ratio] 12.9 % 11.6-14.6 [facility] Immature granulocytes/100 WBC (Bld) 0.300 % 0.0-0.9 [facility] Comment on above: IG% - Immature Granu locytes (promyelocytes, myelocytes and metamyelocytes) > 1% indicates that a LEFT SHIFT is Present. MCH (RBC) [Entitic mass] 29.6 pg 27.0-32.0 [facility] Nucleated RBC/100 WBC (Bld) [Ratio] 0 % 0-5 [facility] MCHC Auto (RBC) [Mass/Vol]Or dered By: Lynn Horn on 12-28-2022 MCHC (RBC) [Mass/Vol] 32.6 g/dL 32-36 [facility] No Panel InformationOrdered By: Lynn Horn on 12-28-2022 Estimated Creatinine Clearance Calc 36.84 ml/min [facility] Estimated GFR (MDRD) Amer 77 mL/min >60 [facility] Comment on above: GFR Calc Estimated GFR (MDRD) Non-Af Amer 64 mL/min >60 [facility] Comment on above: Non- GFR Calc Platelets bldOrdered By: Lois Horn on 12-28-2022 Platelets (Bld) [#/Vol] 272 10*3/uL 150-450 [facility] Serum or plasma calcium viktoria urement (mass/volume)Ordered By: Lynn Horn on 12-28-2022 Calcium [Mass/Vol] 8.3 mg/dL 8.5-10.1 [facility] Serum or plasma creatinine m easurement (mass/volume)Ordered By: Lynn Horn on 12-28-2022 Creatinine [Mass/Vol] 0.89 mg/dL 0.55-1.02 [facility] Comment on above: The validity of the calculated GFR & GFRAA in patients over 70 years has not been determined. Clinical correlation is essential. Serum or plasma urea nitroge n measurement (mass/volume)Ordered By: Lynn Horn on 12-28-2022 Urea nitrogen [Mass/Vol] 14 mg/dL 7-18 [facility] Thin prep Papanicolaou smear with manual screeningOrdered By: Lynn Horn on 12-28-2022 Thin prep Papanicolaou smear with manual screening 3 5-15 [facility] Laboratory - CoagulationOrde red By: Lali Pimentel on 12-27-2022 aPTT Coag (Bld) [Time] 48.2 s 24.1-36.2 [facility] No Panel InformationOrdered By: Lali Pimentel on 12-27-2022 Troponin I High Sensitivity 10 pg/mL 3.0-54.0 [facility] Comment on above: Please Note: New Evon t Units and Gender Specific Reference Ranges. For more information see Policy Stat Procedure [place] High Sensitivity Troponin (TNIH) and attachments. Laboratory - CoagulationOrde red By: Alexandra Hagen on 12-19-2022 INR Coag (Bld) [Relative time] 2.8 {INR} [facility] Comment on above: Critical Value > 4.0 Whole blood prothrombin time Ordered By: Alexandra Hagen on 12-19-2022 PT Coag (Bld) [Time] 29.7 s 11.7-14.9 [facility] Absolute lymphocyte countOrd ered By: Alexandra Hagen on 12-09-2022 Lymphocytes Auto (Unsp spec) [#/Vol] 1.65 10*3/uL 0.83-4.51 [facility] Basophil percentageOrdered B y: Alexandra Hagen on 12-09-2022 Basophils/100 WBC (Bld) 0.4 % 0-1 [facility] Chloride [Moles/Vol] 107 mmol/L 98-107 [facility] Eosinophils/100 WBC (Bld) 3.6 % 0-5 [facility] Glucose [Mass/Vol] 125 mg/dL 74-106 [facility] Comment on above: Fasting Glucose resu lt from 100 to 125 mg/dL suggests IMPAIRED HOMEOSTASIS per A.D.A. criteria. Neutrophils (Bld) [#/Vol] 4.3 10*3/uL 2.0-7.7 [facility] Neutrophils/100 WBC (Bld) 61.6 % 47-70 [facility] Potassium [Moles/Vol] 4.8 mmol/L 3.5-5.1 [facility] Sodium [Moles/Vol] 138 mmol/L 136-145 [facility] WBC (Bld) [#/Vol] 7.0 10*3/uL 4.4-11.0 [facility] Blood erythrocytes count (nu mber/volume)Ordered By: Alexandra Hagen on 12-09-2022 RBC (Bld) [#/Vol] 4.30 10*6/uL 4.2-5.4 [facility] Blood hemoglobin measurement (mass/volume)Ordered By: Alexandra Hagen on 12-09-2022 Hemoglobin (Bld) [Mass/Vol] 13.1 g/dL 12.0-15.0 [facility] Blood lymphocytes/100 leukoc ytesOrdered By: Alexandra Hagen on 12-09-2022 Lymphocytes/100 WBC (Bld) 23.7 % 19-41 [facility] Blood monocytes/100 leukocyt esOrdered By: Alexandra Hagen on 12-09-2022 Monocytes/100 WBC (Bld) 10.4 % 0-10 [facility] Blood platelet mean volumeOr dered By: Alexandra Hagen on 12-09-2022 Platelet mean volume (Bld) [Entitic vol] 10.7 fL 6.2-12.0 [facility] Determination of erythrocyte mean corpuscular volume (MCV)Ordered By: Alexandra Hagen on 12-09-2022 MCV (RBC) [Entitic vol] 92.3 fL 81-99 [facility] Hematocrit Auto (Bld) [Volum e fraction]Ordered By: Alexandra Hagen on 12-09-2022 Hematocrit (Bld) [Volume fraction] 39.7 % 37-47 [facility] Laboratory - Chemistry and C hemistry - challengeOrdered By: Alexandra Hagen on 12-09-2022 CO2 [Moles/Vol] 26.0 mmol/L 21.0-32.0 [facility] Urea nitrogen/Creatinine [Mass ratio] 14.4 mg/mg 10-20 [facility] Laboratory - Hematology and Cell countsOrdered By: Alexandra Hagen on 12-09-2022 Erythrocyte distribution width (RBC) [Entitic vol] 44.0 fL 35.1-43.9 [facility] Erythrocyte distribution width (RBC) [Ratio] 13.1 % 11.6-14.6 [facility] Immature granulocytes/100 WBC (Bld) 0.300 % 0.0-0.9 [facility] Comment on above: IG% - Immature Granu locytes (promyelocytes, myelocytes and metamyelocytes) > 1% indicates that a LEFT SHIFT is Present. MCH (RBC) [Entitic mass] 30.5 pg 27.0-32.0 [facility] Nucleated RBC/100 WBC (Bld) [Ratio] 0 % 0-5 [facility] MCHC Auto (RBC) [Mass/Vol]Or dered By: Alexandra Hagen on 12-09-2022 MCHC (RBC) [Mass/Vol] 33.0 g/dL 32-36 [facility] No Panel InformationOrdered By: Alexandra Hagen on 12-09-2022 Estimated GFR (MDRD) Amer 60 mL/min >60 [facility] Comment on above: GFR Calc Estimated GFR (MDRD) Non-Af Amer 49 mL/min >60 [facility] Comment on above: Non- GFR Calc Platelets bldOrdered By: Alexandra Hagen on 12-09-2022 Platelets (Bld) [#/Vol] 293 10*3/uL 150-450 [facility] Serum or plasma calcium viktoria urement (mass/volume)Ordered By: Alexandra Hagen on 12-09-2022 Calcium [Mass/Vol] 8.7 mg/dL 8.5-10.1 [facility] Serum or plasma creatinine m easurement (mass/volume)Ordered By: Alexandra Hagen on 12-09-2022 Creatinine [Mass/Vol] 1.11 mg/dL 0.55-1.02 [facility] Comment on above: The validity of the calculated GFR & GFRAA in patients over 70 years has not been determined. Clinical correlation is essential. Serum or plasma urea nitroge n measurement (mass/volume)Ordered By: Alexandra Hagen on 12-09-2022 Urea nitrogen [Mass/Vol] 16 mg/dL 7-18 [facility] Thin prep Papanicolaou smear with manual screeningOrdered By: Alexandra Hagen on 12-09-2022 Thin prep Papanicolaou smear with manual screening 5 5-15 [facility] Whole blood hemoglobin A1c/t otal hemoglobin ratio (mass fraction)Ordered By: Alexandra Hagen on 12-09-2022 HbA1c (Bld) [Mass fraction] 6.7 % 3.8-5.6 [facility] Comment on above: Normal < 5.7 % Predi abetic 5.7 - 6.4 % Diabetic >or= 6.5 % Please note range changes. Basophil percentageOrdered B y: Alexandra Hagen on 11-20-2022 Bilirubin [Mass/Vol] 0.50 mg/dL 0.20-1.00 [facility] Comment on above: For patients on eltr ombopag therapy, use of Dimension [place] TBIL is not recommended. Chloride [Moles/Vol] 105 mmol/L 98-107 [facility] Cholesterol [Mass/Vol] 167 mg/dL <200 [facility] Comment on above: <200 mg/dL Desirable 200-240 mg/dL Borderline >240 mg/dL High Risk Glucose [Mass/Vol] 153 mg/dL 74-106 [facility] Comment on above: Fasting Glucose resu lt greater than or equal to 126 mg/dL suggests DIABETES MELLITUS per A.D.A. criteria. Potassium [Moles/Vol] 4.2 mmol/L 3.5-5.1 [facility] Protein [Mass/Vol] 6.7 g/dL 6.4-8.2 [facility] Sodium [Moles/Vol] 138 mmol/L 136-145 [facility] Triglyceride [Mass/Vol] 120 mg/dL <199 [facility] Comment on above: The drugs N-Acetylcy steine and Metamizole may falsely depress this assay.Serum Triglycerides Reference Interval Normal <150 mg/dL Borderline high 150 - 199 mg/dL High 200 - 499 mg/dL Very High > or = 500 mg/dL WBC (Bld) [#/Vol] 7.4 10*3/uL 4.4-11.0 [facility] Blood erythrocytes count (nu mber/volume)Ordered By: Alexandra Hagen on 11-20-2022 RBC (Bld) [#/Vol] 4.37 10*6/uL 4.2-5.4 [facility] Blood hemoglobin measurement (mass/volume)Ordered By: Alexandra Hagen on 11-20-2022 Hemoglobin (Bld) [Mass/Vol] 13.1 g/dL 12.0-15.0 [facility] Blood platelet mean volumeOr dered By: Alexandra Hagen on 11-20-2022 Platelet mean volume (Bld) [Entitic vol] 10.8 fL 6.2-12.0 [facility] Determination of erythrocyte mean corpuscular volume (MCV)Ordered By: Alexandra Hagen on 11-20-2022 MCV (RBC) [Entitic vol] 91.5 fL 81-99 [facility] Hematocrit Auto (Bld) [Volum e fraction]Ordered By: Alexandra Hagen on 11-20-2022 Hematocrit (Bld) [Volume fraction] 40.0 % 37-47 [facility] INR in Blood by Coagulation assayOrdered By: Alexandra Hagen on 11-20-2022 INR Coag (Bld) [Relative time] 2.0 {INR} [facility] Laboratory - Chemistry and C hemistry - challengeOrdered By: Alexandra Haegn on 11-20-2022 ALP [Catalytic activity/Vol] 72 U/L 45-117 [facility] ALT [Catalytic activity/Vol] 13 U/L 13-56 [facility] CO2 [Moles/Vol] 30.0 mmol/L 21.0-32.0 [facility] Globulin (S) [Mass/Vol] 3.6 g/dL 2.2-4.2 [facility] Urea nitrogen/Creatinine [Mass ratio] 12.8 mg/mg 10-20 [facility] Laboratory - CoagulationOrde red By: Alexandra Hagen on 11-20-2022 PT Coag (PPP) [Time] 22.6 s 11.7-14.9 [facility] Laboratory - Hematology and Cell countsOrdered By: Alexandra Hagen on 11-20-2022 Erythrocyte distribution width (RBC) [Entitic vol] 43.4 fL 35.1-43.9 [facility] Erythrocyte distribution width (RBC) [Ratio] 12.9 % 11.6-14.6 [facility] MCH (RBC) [Entitic mass] 30.0 pg 27.0-32.0 [facility] MCHC Auto (RBC) [Mass/Vol]Or dered By: Alexandra Hagen on 11-20-2022 MCHC (RBC) [Mass/Vol] 32.8 g/dL 32-36 [facility] No Panel InformationOrdered By: Alexandra Hagen on 11-20-2022 Estimated GFR (MDRD) Amer 61 mL/min >60 [facility] Comment on above: GFR Calc Estimated GFR (MDRD) Non-Af Amer 50 mL/min >60 [facility] Comment on above: Non- GFR Calc Platelets bldOrdered By: Alexandra Hagen on 11-20-2022 Platelets (Bld) [#/Vol] 310 10*3/uL 150-450 [facility] Serum or plasma albumin viktoria urement (mass/volume)Ordered By: Alexandra Hagen on 11-20-2022 Albumin [Mass/Vol] 3.1 g/dL 3.2-5.0 [facility] Serum or plasma albumin/glob ulin mass ratioOrdered By: Alexandra Hagen on 11-20-2022 Albumin/Globulin [Mass ratio] 0.9 {ratio} 0.9-2.4 [facility] Serum or plasma calcium viktoria urement (mass/volume)Ordered By: Alexandra Hagen on 11-20-2022 Calcium [Mass/Vol] 8.6 mg/dL 8.5-10.1 [facility] Serum or plasma cholesterol in HDL measurement (mass/volume)Ordered By: Alexandra Hagen on 11-20-2022 Cholesterol in HDL [Mass/Vol] 55 mg/dL >40 [facility] Comment on above: The drugs N-Acetylcy steine and Metamizole may falsely depress this assay. Reference Range HDL <40 mg/dL Low HDL Cholesterol HDL >or= 60 mg/dL High HDL Cholesterol Serum or plasma cholesterol in VLDL measurement (mass/volume)Ordered By: Alexandra Hagen on 11-20-2022 Cholesterol in VLDL [Mass/Vol] 24 mg/dL 5-40 [facility] Serum or plasma creatinine m easurement (mass/volume)Ordered By: Alexandra Hagen on 11-20-2022 Creatinine [Mass/Vol] 1.09 mg/dL 0.55-1.02 [facility] Comment on above: The validity of the calculated GFR & GFRAA in patients over 70 years has not been determined. Clinical correlation is essential. Serum or plasma low density lipoprotein (LDL) cholesterol measurement (mass/volume)Ordered By: Alexandra Hagen on 11-20-2022 Cholesterol in LDL [Mass/Vol] 88 mg/dL 0-130 [facility] Serum or plasma urea nitroge n measurement (mass/volume)Ordered By: Alexandra Hagen on 11-20-2022 Urea nitrogen [Mass/Vol] 14 mg/dL 7-18 [facility] Thin prep Papanicolaou smear with manual screeningOrdered By: Alexandra Hagen on 11-20-2022 Thin prep Papanicolaou smear with manual screening 15 U/L 15-37 [facility] Thin prep Papanicolaou smear with manual screening 3 5-15 [facility] Absolute lymphocyte countOrd ered By: Mo Corea on 11-18-2022 Lymphocytes Auto (Unsp spec) [#/Vol] 1.95 10*3/uL 0.83-4.51 [facility] Basophil percentageOrdered B y: Mo Corea on 11-18-2022 Basophil percentage 0-5 SEEN /hpf 0-5 [facility] Basophils/100 WBC (Bld) 0.4 % 0-1 [facility] Bilirubin [Mass/Vol] 0.40 mg/dL 0.20-1.00 [facility] Comment on above: For patients on eltr ombopag therapy, use of Dimension [place] TBIL is not recommended. Chloride [Moles/Vol] 108 mmol/L 98-107 [facility] Eosinophils/100 WBC (Bld) 3.4 % 0-5 [facility] Glucose [Mass/Vol] 126 mg/dL 74-106 [facility] Comment on above: Fasting Glucose resu lt greater than or equal to 126 mg/dL suggests DIABETES MELLITUS per A.D.A. criteria. Neutrophils (Bld) [#/Vol] 4.4 10*3/uL 2.0-7.7 [facility] Neutrophils/100 WBC (Bld) 59.9 % 47-70 [facility] Potassium [Moles/Vol] 3.9 mmol/L 3.5-5.1 [facility] Protein [Mass/Vol] 6.9 g/dL 6.4-8.2 [facility] Sodium [Moles/Vol] 140 mmol/L 136-145 [facility] WBC (Bld) [#/Vol] 7.3 10*3/uL 4.4-11.0 [facility] Bilirubin Test strip Ql (U)O rdered By: Mo Corea on 11-18-2022 Bilirubin Ql (U) Negative Negative [facility] Blood erythrocytes count (nu mber/volume)Ordered By: Mo Corea on 11-18-2022 RBC (Bld) [#/Vol] 4.63 10*6/uL 4.2-5.4 [facility] Blood hemoglobin measurement (mass/volume)Ordered By: Mo Corea on 11-18-2022 Hemoglobin (Bld) [Mass/Vol] 13.9 g/dL 12.0-15.0 [facility] Blood lymphocytes/100 leukoc ytesOrdered By: Mo Corea on 11-18-2022 Lymphocytes/100 WBC (Bld) 26.8 % 19-41 [facility] Blood monocytes/100 leukocyt esOrdered By: oM Corea on 11-18-2022 Monocytes/100 WBC (Bld) 9.2 % 0-10 [facility] Blood platelet mean volumeOr dered By: Mo Corea on 11-18-2022 Platelet mean volume (Bld) [Entitic vol] 10.5 fL 6.2-12.0 [facility] Determination of erythrocyte mean corpuscular volume (MCV)Ordered By: Mo Corea on 11-18-2022 MCV (RBC) [Entitic vol] 92.4 fL 81-99 [facility] Hematocrit Auto (Bld) [Volum e fraction]Ordered By: Mo Corea on 11-18-2022 Hematocrit (Bld) [Volume fraction] 42.8 % 37-47 [facility] INR in Blood by Coagulation assayOrdered By: Mo Corea on 11-18-2022 INR Coag (Bld) [Relative time] 2.0 {INR} [facility] Ketones Test strip Ql (U)Ord ered By: Mo Corea on 11-18-2022 Ketones Ql (U) Negative Negative [facility] Laboratory - Chemistry and C hemistry - challengeOrdered By: Mo Corea on 11-18-2022 ALP [Catalytic activity/Vol] 76 U/L 45-117 [facility] ALT [Catalytic activity/Vol] 13 U/L 13-56 [facility] CO2 [Moles/Vol] 30.0 mmol/L 21.0-32.0 [facility] Globulin (S) [Mass/Vol] 3.6 g/dL 2.2-4.2 [facility] Urea nitrogen/Creatinine [Mass ratio] 13.6 mg/mg 10-20 [facility] Laboratory - CoagulationOrde red By: Mo Corea on 11-18-2022 aPTT Coag (Bld) [Time] 48.1 s 24.1-36.2 [facility] PT Coag (PPP) [Time] 22.7 s 11.7-14.9 [facility] Laboratory - Hematology and Cell countsOrdered By: Mo Corea on 11-18-2022 Erythrocyte distribution width (RBC) [Entitic vol] 44.2 fL 35.1-43.9 [facility] Erythrocyte distribution width (RBC) [Ratio] 13.1 % 11.6-14.6 [facility] Immature granulocytes/100 WBC (Bld) 0.300 % 0.0-0.9 [facility] Comment on above: IG% - Immature Granu locytes (promyelocytes, myelocytes and metamyelocytes) > 1% indicates that a LEFT SHIFT is Present. MCH (RBC) [Entitic mass] 30.0 pg 27.0-32.0 [facility] Nucleated RBC/100 WBC (Bld) [Ratio] 0 % 0-5 [facility] MCHC Auto (RBC) [Mass/Vol]Or dered By: Mo Corea on 11-18-2022 MCHC (RBC) [Mass/Vol] 32.5 g/dL 32-36 [facility] Mucus LM Ql (Urine sed)Order ed By: Mo Corea on 11-18-2022 Mucus Ql (Urine sed) 0 SEEN /hpf [facility] Nitrite Test strip Ql (U)Ord ered By: Mo Corea on 11-18-2022 Nitrite Ql (U) Negative Negative [facility] No Panel InformationOrdered By: Mo Corea on 11-18-2022 Estimated Creatinine Clearance Calc 31.83 ml/min [facility] Estimated GFR (MDRD) Amer 65 mL/min >60 [facility] Comment on above: GFR Calc Estimated GFR (MDRD) Non-Af Amer 54 mL/min >60 [facility] Comment on above: Non- GFR Calc Platelets bldOrdered By: Rebecca Corea on 11-18-2022 Platelets (Bld) [#/Vol] 289 10*3/uL 150-450 [facility] Protein Test strip Ql (U)Ord ered By: Mo Corea on 11-18-2022 Protein Ql (U) 15 mg/dl Negative [facility] Serum or plasma albumin viktoria urement (mass/volume)Ordered By: Mo Corea on 11-18-2022 Albumin [Mass/Vol] 3.3 g/dL 3.2-5.0 [facility] Serum or plasma albumin/glob ulin mass ratioOrdered By: Mo Corea on 11-18-2022 Albumin/Globulin [Mass ratio] 0.9 {ratio} 0.9-2.4 [facility] Serum or plasma calcium viktoria urement (mass/volume)Ordered By: Mo Corea on 11-18-2022 Calcium [Mass/Vol] 8.7 mg/dL 8.5-10.1 [facility] Serum or plasma creatinine m easurement (mass/volume)Ordered By: Mo Corea on 11-18-2022 Creatinine [Mass/Vol] 1.03 mg/dL 0.55-1.02 [facility] Comment on above: The validity of the calculated GFR & GFRAA in patients over 70 years has not been determined. Clinical correlation is essential. Serum or plasma urea nitroge n measurement (mass/volume)Ordered By: Mo Corea on 11-18-2022 Urea nitrogen [Mass/Vol] 14 mg/dL 7-18 [facility] Squamous epithelial cells de tection in urine sediment by light microscopyOrdered By: Mo Corea on 11-18-2022 Epithelial cells.squamous LM Ql (Urine sed) 0-5 SEEN /hpf 5-10 [facility] Thin prep Papanicolaou smear with manual screeningOrdered By: Mo Corea on 11-18-2022 Thin prep Papanicolaou smear with manual screening 15 U/L 15-37 [facility] Thin prep Papanicolaou smear with manual screening 2 5-15 [facility] Urine blood detectionOrdered By: Mo Corea on 08-21-2023 RBC Ql (U) Negative Negative [facility] RBC Ql (U) 0 SEEN /hpf 0-5 [facility] Urine clarityOrdered By: Rebecca Corea on 11-18-2022 Clarity (U) Sl. Cloudy Clear [facility] Urine color determinationOrd ered By: Mo Corea on 11-18-2022 Color (U) Yellow Yellow [facility] Urine glucose detectionOrder ed By: Mo Corea on 11-18-2022 Glucose Ql (U) Normal mg/dl Normal [facility] Urine leukocyte esterase det ection by dipstickOrdered By: Mo Corea on 11-18-2022 Leukocyte esterase Test strip Ql (U) 25 /ul Negative [facility] Urine pHOrdered By: Mo amado on 11-18-2022 pH (U) 7.0 [pH] 5.0 - 8.0 [facility] Urine sediment bacteria coun t by microscopy (number/high power field)Ordered By: Mo Corea on 11-18-2022 Bacteria LM.HPF (Urine sed) [#/Area] 0 /[HPF] None Seen [facility] Urine specific gravity measu rementOrdered By: Mo Corea on 11-18-2022 Specific gravity (U) [Rel density] 1.010 1.002-1.030 [facility] Urobilinogen Auto test strip Ql (U)Ordered By: Mo Corea on 11-18-2022 Urobilinogen Ql (U) Normal mg/dl Normal [facility] Absolute lymphocyte countOrd ered By: Sae Carballo on 11-15-2022 Lymphocytes Auto (Unsp spec) [#/Vol] 2.03 10*3/uL 0.83-4.51 [facility] Basophil percentageOrdered B y: Sae Carballo on 11-15-2022 Basophils/100 WBC (Bld) 0.5 % 0-1 [facility] Chloride [Moles/Vol] 107 mmol/L 98-107 [facility] Cholesterol [Mass/Vol] 164 mg/dL <200 [facility] Comment on above: <200 mg/dL Desirable 200-240 mg/dL Borderline >240 mg/dL High Risk Eosinophils/100 WBC (Bld) 3.5 % 0-5 [facility] Glucose [Mass/Vol] 124 mg/dL 74-106 [facility] Comment on above: Fasting Glucose resu lt from 100 to 125 mg/dL suggests IMPAIRED HOMEOSTASIS per A.D.A. criteria. Neutrophils (Bld) [#/Vol] 4.7 10*3/uL 2.0-7.7 [facility] Neutrophils/100 WBC (Bld) 60.3 % 47-70 [facility] Potassium [Moles/Vol] 4.1 mmol/L 3.5-5.1 [facility] Sodium [Moles/Vol] 139 mmol/L 136-145 [facility] Triglyceride [Mass/Vol] 133 mg/dL <199 [facility] Comment on above: The drugs N-Acetylcy steine and Metamizole may falsely depress this assay.Serum Triglycerides Reference Interval Normal <150 mg/dL Borderline high 150 - 199 mg/dL High 200 - 499 mg/dL Very High > or = 500 mg/dL WBC (Bld) [#/Vol] 7.8 10*3/uL 4.4-11.0 [facility] Blood erythrocytes count (nu mber/volume)Ordered By: Sae Carballo on 11-15-2022 RBC (Bld) [#/Vol] 4.32 10*6/uL 4.2-5.4 [facility] Blood hemoglobin measurement (mass/volume)Ordered By: Sae Carballo on 11-15-2022 Hemoglobin (Bld) [Mass/Vol] 12.9 g/dL 12.0-15.0 [facility] Blood lymphocytes/100 leukoc ytesOrdered By: Sae Carballo on 11-15-2022 Lymphocytes/100 WBC (Bld) 26.2 % 19-41 [facility] Blood monocytes/100 leukocyt esOrdered By: Sae Carballo on 11-15-2022 Monocytes/100 WBC (Bld) 9.4 % 0-10 [facility] Blood platelet mean volumeOr dered By: Sae Carballo on 11-15-2022 Platelet mean volume (Bld) [Entitic vol] 10.6 fL 6.2-12.0 [facility] Determination of erythrocyte mean corpuscular volume (MCV)Ordered By: Sae Carballo on 11-15-2022 MCV (RBC) [Entitic vol] 91.7 fL 81-99 [facility] Hematocrit Auto (Bld) [Volum e fraction]Ordered By: Sae Carballo on 11-15-2022 Hematocrit (Bld) [Volume fraction] 39.6 % 37-47 [facility] INR in Blood by Coagulation assayOrdered By: Sae Carballo on 11-15-2022 INR Coag (Bld) [Relative time] 2.0 {INR} [facility] Laboratory - Chemistry and C hemistry - challengeOrdered By: Sae Carballo on 11-15-2022 CO2 [Moles/Vol] 25.0 mmol/L 21.0-32.0 [facility] Urea nitrogen/Creatinine [Mass ratio] 15.8 mg/mg 10-20 [facility] Laboratory - CoagulationOrde red By: Sae Carballo on 11-15-2022 PT Coag (PPP) [Time] 23.0 s 11.7-14.9 [facility] Laboratory - Hematology and Cell countsOrdered By: Sae Carballo on 11-15-2022 Erythrocyte distribution width (RBC) [Entitic vol] 43.4 fL 35.1-43.9 [facility] Erythrocyte distribution width (RBC) [Ratio] 12.9 % 11.6-14.6 [facility] Immature granulocytes/100 WBC (Bld) 0.100 % 0.0-0.9 [facility] Comment on above: IG% - Immature Granu locytes (promyelocytes, myelocytes and metamyelocytes) > 1% indicates that a LEFT SHIFT is Present. MCH (RBC) [Entitic mass] 29.9 pg 27.0-32.0 [facility] Nucleated RBC/100 WBC (Bld) [Ratio] 0 % 0-5 [facility] MCHC Auto (RBC) [Mass/Vol]Or dered By: Sae Carballo on 11-15-2022 MCHC (RBC) [Mass/Vol] 32.6 g/dL 32-36 [facility] No Panel InformationOrdered By: Sae Carballo on 11-15-2022 Estimated Creatinine Clearance Calc 37.26 ml/min [facility] Estimated GFR (MDRD) Amer 78 mL/min >60 [facility] Comment on above: GFR Calc Estimated GFR (MDRD) Non-Af Amer 64 mL/min >60 [facility] Comment on above: Non- GFR Calc Platelets bldOrdered By: Ramos Carballo on 11-15-2022 Platelets (Bld) [#/Vol] 278 10*3/uL 150-450 [facility] Serum or plasma calcium viktoria urement (mass/volume)Ordered By: Sae Carballo on 11-15-2022 Calcium [Mass/Vol] 8.5 mg/dL 8.5-10.1 [facility] Serum or plasma cholesterol in HDL measurement (mass/volume)Ordered By: Sae Carballo on 11-15-2022 Cholesterol in HDL [Mass/Vol] 49 mg/dL >40 [facility] Comment on above: The drugs N-Acetylcy steine and Metamizole may falsely depress this assay. Reference Range HDL <40 mg/dL Low HDL Cholesterol HDL >or= 60 mg/dL High HDL Cholesterol Serum or plasma cholesterol in VLDL measurement (mass/volume)Ordered By: Sae Carballo on 11-15-2022 Cholesterol in VLDL [Mass/Vol] 27 mg/dL 5-40 [facility] Serum or plasma creatinine m easurement (mass/volume)Ordered By: Sae Carballo on 11-15-2022 Creatinine [Mass/Vol] 0.88 mg/dL 0.55-1.02 [facility] Comment on above: The validity of the calculated GFR & GFRAA in patients over 70 years has not been determined. Clinical correlation is essential. Serum or plasma low density lipoprotein (LDL) cholesterol measurement (mass/volume)Ordered By: Sae Carballo on 11-15-2022 Cholesterol in LDL [Mass/Vol] 88 mg/dL 0-130 [facility] Serum or plasma urea nitroge n measurement (mass/volume)Ordered By: Sae Carballo on 11-15-2022 Urea nitrogen [Mass/Vol] 14 mg/dL 7-18 [facility] Thin prep Papanicolaou smear with manual screeningOrdered By: Sae Carballo on 11-15-2022 Thin prep Papanicolaou smear with manual screening 7 -15 [facility] Absolute lymphocyte countOrd ered By: Neri Mitchell on 11-14-2022 Lymphocytes Auto (Unsp spec) [#/Vol] 2.35 10*3/uL 0.83-4.51 [facility] Basophil percentageOrdered B y: Neri Mitchell on 11-14-2022 Basophils/100 WBC (Bld) 0.6 % 0-1 [facility] Chloride [Moles/Vol] 104 mmol/L 98-107 [facility] Eosinophils/100 WBC (Bld) 2.4 % 0-5 [facility] Glucose [Mass/Vol] 135 mg/dL 74-106 [facility] Comment on above: Fasting Glucose resu lt greater than or equal to 126 mg/dL suggests DIABETES MELLITUS per A.D.A. criteria. Neutrophils (Bld) [#/Vol] 6.0 10*3/uL 2.0-7.7 [facility] Neutrophils/100 WBC (Bld) 64.0 % 47-70 [facility] Potassium [Moles/Vol] 4.0 mmol/L 3.5-5.1 [facility] Sodium [Moles/Vol] 138 mmol/L 136-145 [facility] WBC (Bld) [#/Vol] 9.4 10*3/uL 4.4-11.0 [facility] Blood erythrocytes count (nu mber/volume)Ordered By: Neri Mitchell on 11-14-2022 RBC (Bld) [#/Vol] 4.79 10*6/uL 4.2-5.4 [facility] Blood hemoglobin measurement (mass/volume)Ordered By: Neri Mitchell on 11-14-2022 Hemoglobin (Bld) [Mass/Vol] 14.3 g/dL 12.0-15.0 [facility] Blood lymphocytes/100 leukoc ytesOrdered By: Neri Mitchell on 11-14-2022 Lymphocytes/100 WBC (Bld) 24.9 % 19-41 [facility] Blood monocytes/100 leukocyt esOrdered By: Neri Mitchell on 11-14-2022 Monocytes/100 WBC (Bld) 7.8 % 0-10 [facility] Blood platelet mean volumeOr dered By: Neri Mitchell on 11-14-2022 Platelet mean volume (Bld) [Entitic vol] 10.6 fL 6.2-12.0 [facility] Determination of erythrocyte mean corpuscular volume (MCV)Ordered By: Neri Mitchell on 11-14-2022 MCV (RBC) [Entitic vol] 93.5 fL 81-99 [facility] Glucose Glucometer (BldC) [M ass/Vol]Ordered By: Neri Mitchell on 11-14-2022 Glucose [Mass/Vol] 136 mg/dL 74-106 [facility] Comment on above: MANAGEMENT OF PATIEN T CARE PER NURSING PROTOCOL Hematocrit Auto (Bld) [Volum e fraction]Ordered By: Neri Mitchell on 11-14-2022 Hematocrit (Bld) [Volume fraction] 44.8 % 37-47 [facility] INR in Blood by Coagulation assayOrdered By: Neri Mitchell on 11-14-2022 INR Coag (Bld) [Relative time] 1.8 {INR} [facility] Laboratory - Chemistry and C hemistry - challengeOrdered By: Neri Mitchell on 11-14-2022 CO2 [Moles/Vol] 28.0 mmol/L 21.0-32.0 [facility] Urea nitrogen/Creatinine [Mass ratio] 12.3 mg/mg 10-20 [facility] Laboratory - CoagulationOrde red By: Neri Mitchell on 11-14-2022 aPTT Coag (Bld) [Time] 43.3 s 24.1-36.2 [facility] PT Coag (PPP) [Time] 21.3 s 11.7-14.9 [facility] Laboratory - Hematology and Cell countsOrdered By: Neri Mitchell on 11-14-2022 Erythrocyte distribution width (RBC) [Entitic vol] 44.7 fL 35.1-43.9 [facility] Erythrocyte distribution width (RBC) [Ratio] 13.0 % 11.6-14.6 [facility] Immature granulocytes/100 WBC (Bld) 0.300 % 0.0-0.9 [facility] Comment on above: IG% - Immature Granu locytes (promyelocytes, myelocytes and metamyelocytes) > 1% indicates that a LEFT SHIFT is Present. MCH (RBC) [Entitic mass] 29.9 pg 27.0-32.0 [facility] Nucleated RBC/100 WBC (Bld) [Ratio] 0 % 0-5 [facility] MCHC Auto (RBC) [Mass/Vol]Or dered By: Neri Mitchell on 11-14-2022 MCHC (RBC) [Mass/Vol] 31.9 g/dL 32-36 [facility] No Panel InformationOrdered By: Neri Mitchell on 11-14-2022 Estimated Creatinine Clearance Calc 28.76 ml/min [facility] Estimated GFR (MDRD) Amer 58 mL/min >60 [facility] Comment on above: GFR Calc Estimated GFR (MDRD) Non-Af Amer 48 mL/min >60 [facility] Comment on above: Non- GFR Calc Troponin I High Sensitivity 10 pg/mL 3.0-54.0 [facility] Comment on above: Please Note: New Evon t Units and Gender Specific Reference Ranges. For more information see Policy Stat Procedure [place] High Sensitivity Troponin (TNIH) and attachments. Platelets bldOrdered By: Prasad Mitchell on 11-14-2022 Platelets (Bld) [#/Vol] 313 10*3/uL 150-450 [facility] Serum or plasma calcium viktoria urement (mass/volume)Ordered By: Neri Mitchell on 11-14-2022 Calcium [Mass/Vol] 9.0 mg/dL 8.5-10.1 [facility] Serum or plasma creatinine m easurement (mass/volume)Ordered By: Neri Mitchell on 11-14-2022 Creatinine [Mass/Vol] 1.14 mg/dL 0.55-1.02 [facility] Comment on above: The validity of the calculated GFR & GFRAA in patients over 70 years has not been determined. Clinical correlation is essential. Serum or plasma urea nitroge n measurement (mass/volume)Ordered By: Neri Mitchell on 11-14-2022 Urea nitrogen [Mass/Vol] 14 mg/dL 7-18 [facility] Thin prep Papanicolaou smear with manual screeningOrdered By: Neri Mitchell on 11-14-2022 Thin prep Papanicolaou smear with manual screening 6 5-15 [facility] INR in Blood by Coagulation assayOrdered By: Dr. Juarez on 09-18-2022 INR Coag (Bld) [Relative time] 1.8 {INR} [facility] Laboratory - CoagulationOrde red By: Dr. Juarez on 09-18-2022 PT Coag (PPP) [Time] 20.9 s 11.7-14.9 [facility] No Panel InformationOrdered By: Anant Juarez on 09-18-2022 Free Lambda Light Chains, Quant 15.7 mg/L 5.7-26.3 [facility] Whole Blood Vitamin B1 Level 111.8 nmol/L 66.5-200.0 [facility] Comment on above: Performed at: [facility] [address] [id number] Director: Master Vee PhD, Phone: [phone] at: [facility] [id number] Director: Brandon Wells MD, Phone: [phone] Serum immunoglobulin kappa l ight chains/immunoglobulin lambda light chains mass ratioOrdered By: Anant Juarez on 09-18-2022 Immunoglobulin light chains.kappa/Immunoglobul in light chains.lambda (S) [Mass ratio] 1.74 0.26-1.65 [facility] Serum or plasma folate measu rement (mass/volume)Ordered By: Dr. Juarez on 09-18-2022 Folate [Mass/Vol] 51.90 ng/mL 3.1-55.4 [facility] Comment on above: Slight Hemolysis, Re sult may be falsely increased. Serum or plasma immunoglobul in kappa light chains measurement (mass/volume)Ordered By: Anant Juarez on 09-18-2022 Immunoglobulin light chains.kappa [Mass/Vol] 27.3 mg/L 3.3-19.4 [facility] Culture, urineOrdered By: Slim Doran on 09-17-2022 Bacteria identified Cx Nom (U) Streptococcus agalactiae (B) [facility] INR in Blood by Coagulation assayOrdered By: Dr. Doran on 09-13-2022 INR Coag (Bld) [Relative time] 1.5 {INR} [facility] Laboratory - CoagulationOrde red By: Dr. Doran on 09-13-2022 PT Coag (PPP) [Time] 18.1 s 11.7-14.9 [facility] Absolute lymphocyte countOrd ered By: Dr. Barcenas on 09-08-2022 Lymphocytes Auto (Unsp spec) [#/Vol] 2.60 10*3/uL 0.83-4.51 [facility] Basophil percentageOrdered B y: Dr. Barcenas on 09-08-2022 Basophil percentage 0 SEEN /hpf 0-5 [facility] Basophils/100 WBC (Bld) 0.4 % 0-1 [facility] Bilirubin [Mass/Vol] 0.30 mg/dL 0.20-1.00 [facility] Comment on above: For patients on eltr ombopag therapy, use of Dimension [place] TBIL is not recommended. Chloride [Moles/Vol] 103 mmol/L 98-107 [facility] Eosinophils/100 WBC (Bld) 2.3 % 0-5 [facility] Glucose [Mass/Vol] 78 mg/dL 74-106 [facility] Neutrophils (Bld) [#/Vol] 5.2 10*3/uL 2.0-7.7 [facility] Neutrophils/100 WBC (Bld) 57.4 % 47-70 [facility] Potassium [Moles/Vol] 3.8 mmol/L 3.5-5.1 [facility] Protein [Mass/Vol] 6.9 g/dL 6.4-8.2 [facility] Sodium [Moles/Vol] 139 mmol/L 136-145 [facility] WBC (Bld) [#/Vol] 9.1 10*3/uL 4.4-11.0 [facility] Bilirubin Test strip Ql (U)O rdered By: Dr. Barcenas on 09-08-2022 Bilirubin Ql (U) Negative Negative [facility] Blood erythrocytes count (nu mber/volume)Ordered By: Dr. Barcenas on 09-08-2022 RBC (Bld) [#/Vol] 4.48 10*6/uL 4.2-5.4 [facility] Blood hemoglobin measurement (mass/volume)Ordered By: Dr. Barcenas on 09-08-2022 Hemoglobin (Bld) [Mass/Vol] 13.4 g/dL 12.0-15.0 [facility] Blood lymphocytes/100 leukoc ytesOrdered By: Dr. Barcenas on 09-08-2022 Lymphocytes/100 WBC (Bld) 28.5 % 19-41 [facility] Blood monocytes/100 leukocyt esOrdered By: Dr. Barcenas on 09-08-2022 Monocytes/100 WBC (Bld) 11.1 % 0-10 [facility] Blood platelet mean volumeOr dered By: Dr. Barcenas on 09-08-2022 Platelet mean volume (Bld) [Entitic vol] 10.7 fL 6.2-12.0 [facility] Determination of erythrocyte mean corpuscular volume (MCV)Ordered By: Dr. Barcenas on 09-08-2022 MCV (RBC) [Entitic vol] 92.4 fL 81-99 [facility] Hematocrit Auto (Bld) [Volum e fraction]Ordered By: Dr. Barcenas on 09-08-2022 Hematocrit (Bld) [Volume fraction] 41.4 % 37-47 [facility] INR in Blood by Coagulation assayOrdered By: Dr. Barcenas on 09-08-2022 INR Coag (Bld) [Relative time] 1.0 {INR} [facility] Ketones Test strip Ql (U)Ord ered By: Dr. Barcenas on 09-08-2022 Ketones Ql (U) Negative Negative [facility] Laboratory - Chemistry and C hemistry - challengeOrdered By: Dr. Barcenas on 09-08-2022 ALP [Catalytic activity/Vol] 71 U/L 45-117 [facility] ALT [Catalytic activity/Vol] 9 U/L 13-56 [facility] CO2 [Moles/Vol] 30.0 mmol/L 21.0-32.0 [facility] Globulin (S) [Mass/Vol] 3.7 g/dL 2.2-4.2 [facility] Urea nitrogen/Creatinine [Mass ratio] 17.1 mg/mg 10-20 [facility] Laboratory - CoagulationOrde red By: Dr. Barcenas on 09-08-2022 PT Coag (PPP) [Time] 13.6 s 11.7-14.9 [facility] Laboratory - Hematology and Cell countsOrdered By: Dr. Barcenas on 09-08-2022 Erythrocyte distribution width (RBC) [Entitic vol] 44.8 fL 35.1-43.9 [facility] Erythrocyte distribution width (RBC) [Ratio] 13.2 % 11.6-14.6 [facility] Immature granulocytes/100 WBC (Bld) 0.300 % 0.0-0.9 [facility] Comment on above: IG% - Immature Granu locytes (promyelocytes, myelocytes and metamyelocytes) > 1% indicates that a LEFT SHIFT is Present. MCH (RBC) [Entitic mass] 29.9 pg 27.0-32.0 [facility] Nucleated RBC/100 WBC (Bld) [Ratio] 0 % 0-5 [facility] MCHC Auto (RBC) [Mass/Vol]Or dered By: Dr. Barcenas on 09-08-2022 MCHC (RBC) [Mass/Vol] 32.4 g/dL 32-36 [facility] Mucus LM Ql (Urine sed)Order ed By: Dr. Barcenas on 09-08-2022 Mucus Ql (Urine sed) 0 SEEN /hpf [facility] Nitrite Test strip Ql (U)Ord ered By: Dr. Barcenas on 09-08-2022 Nitrite Ql (U) Negative Negative [facility] No Panel InformationOrdered By: Dr. Barcenas on 09-08-2022 Estimated Creatinine Clearance Calc 31.23 ml/min [facility] Estimated GFR (MDRD) Amer 64 mL/min >60 [facility] Comment on above: GFR Calc Estimated GFR (MDRD) Non-Af Amer 53 mL/min >60 [facility] Comment on above: Non- GFR Calc Troponin I High Sensitivity 86 pg/mL 3.0-54.0 [facility] Comment on above: Please Note: New Evon t Units and Gender Specific Reference Ranges. For more information see Policy Stat Procedure [place] High Sensitivity Troponin (TNIH) and attachments. Platelets bldOrdered By: Dr. Barcenas on 09-08-2022 Platelets (Bld) [#/Vol] 294 10*3/uL 150-450 [facility] Protein Test strip Ql (U)Ord ered By: Dr. Barcenas on 09-08-2022 Protein Ql (U) Negative Negative [facility] Serum or plasma albumin viktoria urement (mass/volume)Ordered By: Dr. Barcenas on 09-08-2022 Albumin [Mass/Vol] 3.2 g/dL 3.2-5.0 [facility] Serum or plasma albumin/glob ulin mass ratioOrdered By: Dr. Barcenas on 09-08-2022 Albumin/Globulin [Mass ratio] 0.9 {ratio} 0.9-2.4 [facility] Serum or plasma calcium viktoria urement (mass/volume)Ordered By: Dr. Barcenas on 09-08-2022 Calcium [Mass/Vol] 8.8 mg/dL 8.5-10.1 [facility] Serum or plasma creatinine m easurement (mass/volume)Ordered By: Dr. Barcenas on 09-08-2022 Creatinine [Mass/Vol] 1.05 mg/dL 0.55-1.02 [facility] Comment on above: The validity of the calculated GFR & GFRAA in patients over 70 years has not been determined. Clinical correlation is essential. Serum or plasma urea nitroge n measurement (mass/volume)Ordered By: Dr. Barcenas on 09-08-2022 Urea nitrogen [Mass/Vol] 18 mg/dL 7-18 [facility] Squamous epithelial cells de tection in urine sediment by light microscopyOrdered By: Dr. Barcenas on 09-08-2022 Epithelial cells.squamous LM Ql (Urine sed) 0-5 SEEN /hpf 5-10 [facility] Thin prep Papanicolaou smear with manual screeningOrdered By: Dr. Barcenas on 09-08-2022 Thin prep Papanicolaou smear with manual screening 9 U/L 15-37 [facility] Thin prep Papanicolaou smear with manual screening 6 5-15 [facility] Urine blood detectionOrdered By: Dr. Barcenas on 09-08-2022 RBC Ql (U) Negative Negative [facility] RBC Ql (U) 0 SEEN /hpf 0-5 [facility] Urine clarityOrdered By: Dr. Barcenas on 09-08-2022 Clarity (U) Clear Clear [facility] Urine color determinationOrd ered By: Dr. Barcenas on 09-08-2022 Color (U) Yellow Yellow [facility] Urine glucose detectionOrder ed By: Dr. Barcenas on 09-08-2022 Glucose Ql (U) Normal mg/dl Normal [facility] Urine leukocyte esterase det ection by dipstickOrdered By: Dr. Barcenas on 09-08-2022 Leukocyte esterase Test strip Ql (U) Negative Negative [facility] Urine pHOrdered By: Dr. Moody delgado on 09-08-2022 pH (U) 6.5 [pH] 5.0 - 8.0 [facility] Urine sediment bacteria coun t by microscopy (number/high power field)Ordered By: Dr. Barcenas on 09-08-2022 Bacteria LM.HPF (Urine sed) [#/Area] 0 /[HPF] None Seen [facility] Urine specific gravity measu rementOrdered By: Dr. Barcenas on 09-08-2022 Specific gravity (U) [Rel density] 1.010 1.002-1.030 [facility] Urobilinogen Auto test strip Ql (U)Ordered By: Dr. Barcenas on 09-08-2022 Urobilinogen Ql (U) Normal mg/dl Normal [facility] Absolute lymphocyte countOrd ered By: Dr. Doran on 09-05-2022 Lymphocytes Auto (Unsp spec) [#/Vol] 1.27 10*3/uL 0.83-4.51 [facility] Basophil percentageOrdered B y: Dr. Doran on 09-05-2022 Basophils/100 WBC (Bld) 0.4 % 0-1 [facility] Chloride [Moles/Vol] 106 mmol/L 98-107 [facility] Eosinophils/100 WBC (Bld) 1.0 % 0-5 [facility] Glucose [Mass/Vol] 202 mg/dL 74-106 [facility] Comment on above: Glucose result great er than or equal to 200 mg/dLsuggests DIABETES MELLITUS per A.D.A. criteria. Neutrophils (Bld) [#/Vol] 8.3 10*3/uL 2.0-7.7 [facility] Neutrophils/100 WBC (Bld) 79.7 % 47-70 [facility] Potassium [Moles/Vol] 3.7 mmol/L 3.5-5.1 [facility] Sodium [Moles/Vol] 139 mmol/L 136-145 [facility] WBC (Bld) [#/Vol] 10.4 10*3/uL 4.4-11.0 [facility] Blood erythrocytes count (nu mber/volume)Ordered By: Dr. Doran on 09-05-2022 RBC (Bld) [#/Vol] 4.72 10*6/uL 4.2-5.4 [facility] Blood hemoglobin measurement (mass/volume)Ordered By: Dr. Dorna on 09-05-2022 Hemoglobin (Bld) [Mass/Vol] 14.1 g/dL 12.0-15.0 [facility] Blood lymphocytes/100 leukoc ytesOrdered By: Dr. Doran on 09-05-2022 Lymphocytes/100 WBC (Bld) 12.3 % 19-41 [facility] Blood monocytes/100 leukocyt esOrdered By: Dr. Doran on 09-05-2022 Monocytes/100 WBC (Bld) 6.3 % 0-10 [facility] Blood platelet mean volumeOr dered By: Dr. Doran on 09-05-2022 Platelet mean volume (Bld) [Entitic vol] 11.2 fL 6.2-12.0 [facility] Determination of erythrocyte mean corpuscular volume (MCV)Ordered By: Dr. Doran on 09-05-2022 MCV (RBC) [Entitic vol] 93.9 fL 81-99 [facility] Hematocrit Auto (Bld) [Volum e fraction]Ordered By: Dr. Doran on 09-05-2022 Hematocrit (Bld) [Volume fraction] 44.3 % 37-47 [facility] INR in Blood by Coagulation assayOrdered By: Dr. Doran on 09-05-2022 INR Coag (Bld) [Relative time] 1.1 {INR} [facility] Laboratory - Chemistry and C hemistry - challengeOrdered By: Dr. Doran on 09-05-2022 CO2 [Moles/Vol] 24.0 mmol/L 21.0-32.0 [facility] Urea nitrogen/Creatinine [Mass ratio] 18.3 mg/mg 10-20 [facility] Laboratory - CoagulationOrde red By: Dr. Doran on 09-05-2022 PT Coag (PPP) [Time] 13.8 s 11.7-14.9 [facility] Laboratory - Hematology and Cell countsOrdered By: Dr. Doran on 09-05-2022 Erythrocyte distribution width (RBC) [Entitic vol] 45.5 fL 35.1-43.9 [facility] Erythrocyte distribution width (RBC) [Ratio] 13.2 % 11.6-14.6 [facility] Immature granulocytes/100 WBC (Bld) 0.300 % 0.0-0.9 [facility] Comment on above: IG% - Immature Granu locytes (promyelocytes, myelocytes and metamyelocytes) > 1% indicates that a LEFT SHIFT is Present. MCH (RBC) [Entitic mass] 29.9 pg 27.0-32.0 [facility] Nucleated RBC/100 WBC (Bld) [Ratio] 0 % 0-5 [facility] MCHC Auto (RBC) [Mass/Vol]Or dered By: Dr. Doran on 09-05-2022 MCHC (RBC) [Mass/Vol] 31.8 g/dL 32-36 [facility] No Panel InformationOrdered By: Dr. Doran on 09-05-2022 Estimated GFR (MDRD) Amer 61 mL/min >60 [facility] Comment on above: GFR Calc Estimated GFR (MDRD) Non-Af Amer 50 mL/min >60 [facility] Comment on above: Non- GFR Calc Thyroid Stimulating Hormone (TSH) 2.84 uIU/mL 0.358-3.74 [facility] Platelets bldOrdered By: Dr. Doran on 09-05-2022 Platelets (Bld) [#/Vol] 311 10*3/uL 150-450 [facility] Serum or plasma calcium viktoria urement (mass/volume)Ordered By: Dr. Doran on 09-05-2022 Calcium [Mass/Vol] 8.8 mg/dL 8.5-10.1 [facility] Serum or plasma creatinine m easurement (mass/volume)Ordered By: Dr. Doran on 09-05-2022 Creatinine [Mass/Vol] 1.09 mg/dL 0.55-1.02 [facility] Comment on above: The validity of the calculated GFR & GFRAA in patients over 70 years has not been determined. Clinical correlation is essential. Serum or plasma urea nitroge n measurement (mass/volume)Ordered By: Dr. Doran on 09-05-2022 Urea nitrogen [Mass/Vol] 20 mg/dL 7-18 [facility] Thin prep Papanicolaou smear with manual screeningOrdered By: Dr. Doran on 09-05-2022 Thin prep Papanicolaou smear with manual screening 9 5-15 [facility] Absolute lymphocyte countOrd ered By: Dr. Doran on 08-08-2022 Lymphocytes Auto (Unsp spec) [#/Vol] 1.97 10*3/uL 0.83-4.51 [facility] Basophil percentageOrdered B y: Dr. Doran on 08-08-2022 Basophils/100 WBC (Bld) 0.5 % 0-1 [facility] Chloride [Moles/Vol] 105 mmol/L 98-107 [facility] Eosinophils/100 WBC (Bld) 3.2 % 0-5 [facility] Glucose [Mass/Vol] 147 mg/dL 74-106 [facility] Comment on above: Fasting Glucose resu lt greater than or equal to 126 mg/dL suggests DIABETES MELLITUS per A.D.A. criteria. Neutrophils (Bld) [#/Vol] 4.6 10*3/uL 2.0-7.7 [facility] Neutrophils/100 WBC (Bld) 60.9 % 47-70 [facility] Potassium [Moles/Vol] 4.9 mmol/L 3.5-5.1 [facility] Sodium [Moles/Vol] 140 mmol/L 136-145 [facility] WBC (Bld) [#/Vol] 7.5 10*3/uL 4.4-11.0 [facility] Blood erythrocytes count (nu mber/volume)Ordered By: Dr. Doran on 08-08-2022 RBC (Bld) [#/Vol] 4.73 10*6/uL 4.2-5.4 [facility] Blood hemoglobin measurement (mass/volume)Ordered By: Dr. Doran on 08-08-2022 Hemoglobin (Bld) [Mass/Vol] 14.0 g/dL 12.0-15.0 [facility] Blood lymphocytes/100 leukoc ytesOrdered By: Dr. Doran on 08-08-2022 Lymphocytes/100 WBC (Bld) 26.2 % 19-41 [facility] Blood monocytes/100 leukocyt esOrdered By: Dr. Doran on 08-08-2022 Monocytes/100 WBC (Bld) 8.8 % 0-10 [facility] Blood platelet mean volumeOr dered By: Dr. Doran on 08-08-2022 Platelet mean volume (Bld) [Entitic vol] 10.9 fL 6.2-12.0 [facility] Determination of erythrocyte mean corpuscular volume (MCV)Ordered By: Dr. Doran on 08-08-2022 MCV (RBC) [Entitic vol] 94.1 fL 81-99 [facility] Hematocrit Auto (Bld) [Volum e fraction]Ordered By: Dr. Doran on 08-08-2022 Hematocrit (Bld) [Volume fraction] 44.5 % 37-47 [facility] Laboratory - Chemistry and C hemistry - challengeOrdered By: Dr. Doran on 08-08-2022 CO2 [Moles/Vol] 29.0 mmol/L 21.0-32.0 [facility] Cobalamin (Vitamin B12) [Mass/Vol] 853 pg/mL 211-911 [facility] Urea nitrogen/Creatinine [Mass ratio] 18.3 mg/mg 10-20 [facility] Laboratory - Hematology and Cell countsOrdered By: Dr. Doran on 08-08-2022 Erythrocyte distribution width (RBC) [Entitic vol] 45.5 fL 35.1-43.9 [facility] Erythrocyte distribution width (RBC) [Ratio] 13.2 % 11.6-14.6 [facility] Immature granulocytes/100 WBC (Bld) 0.400 % 0.0-0.9 [facility] Comment on above: IG% - Immature Granu locytes (promyelocytes, myelocytes and metamyelocytes) > 1% indicates that a LEFT SHIFT is Present. MCH (RBC) [Entitic mass] 29.6 pg 27.0-32.0 [facility] Nucleated RBC/100 WBC (Bld) [Ratio] 0 % 0-5 [facility] MCHC Auto (RBC) [Mass/Vol]Or dered By: Dr. Doran on 08-08-2022 MCHC (RBC) [Mass/Vol] 31.5 g/dL 32-36 [facility] No Panel InformationOrdered By: Dr. Doran on 08-08-2022 Estimated GFR (MDRD) Amer 57 mL/min >60 [facility] Comment on above: GFR Calc Estimated GFR (MDRD) Non-Af Amer 47 mL/min >60 [facility] Comment on above: Non- GFR Calc Vitamin D 25-Hydroxy 35.5 ng/mL [facility] Comment on above: Vitamin D 25(OH) Sta tus Range Deficiency <20 ng/mL (50nmol/L) Insufficiency 20 - 30 ng/mL (50 - 75 nmol/L) Sufficiency 30 - 100 ng/mL (75 - 250 nmol/L) Toxicity >100 ng/mL (>250 nmol/L) Platelets bldOrdered By: Dr. Doran on 08-08-2022 Platelets (Bld) [#/Vol] 365 10*3/uL 150-450 [facility] Serum or plasma calcium viktoria urement (mass/volume)Ordered By: Dr. Doran on 08-08-2022 Calcium [Mass/Vol] 9.2 mg/dL 8.5-10.1 [facility] Serum or plasma creatinine m easurement (mass/volume)Ordered By: Dr. Doran on 08-08-2022 Creatinine [Mass/Vol] 1.15 mg/dL 0.55-1.02 [facility] Comment on above: The validity of the calculated GFR & GFRAA in patients over 70 years has not been determined. Clinical correlation is essential. Serum or plasma ferritin rich surement (mass/volume)Ordered By: Dr. Doran on 08-08-2022 Ferritin [Mass/Vol] 83 ng/mL 8-252 [facility] Serum or plasma urea nitroge n measurement (mass/volume)Ordered By: Dr. Doran on 08-08-2022 Urea nitrogen [Mass/Vol] 21 mg/dL 7-18 [facility] Thin prep Papanicolaou smear with manual screeningOrdered By: Dr. Doran on 08-08-2022 Thin prep Papanicolaou smear with manual screening 6 5-15 [facility] Absolute lymphocyte countOrd ered By: Dr. Doran on 06-26-2022 Lymphocytes Auto (Unsp spec) [#/Vol] 2.42 10*3/uL 0.83-4.51 [facility] Basophil percentageOrdered B y: Dr. Doran on 06-26-2022 Basophils/100 WBC (Bld) 0.5 % 0-1 [facility] Bilirubin [Mass/Vol] 0.40 mg/dL 0.20-1.00 [facility] Comment on above: For patients on eltr ombopag therapy, use of Dimension [place] TBIL is not recommended. Chloride [Moles/Vol] 106 mmol/L 98-107 [facility] Cholesterol [Mass/Vol] 163 mg/dL <200 [facility] Comment on above: <200 mg/dL Desirable 200-240 mg/dL Borderline >240 mg/dL High Risk Eosinophils/100 WBC (Bld) 4.2 % 0-5 [facility] Glucose [Mass/Vol] 142 mg/dL 74-106 [facility] Comment on above: Fasting Glucose resu lt greater than or equal to 126 mg/dL suggests DIABETES MELLITUS per A.D.A. criteria. Neutrophils (Bld) [#/Vol] 3.9 10*3/uL 2.0-7.7 [facility] Neutrophils/100 WBC (Bld) 53.1 % 47-70 [facility] Potassium [Moles/Vol] 4.3 mmol/L 3.5-5.1 [facility] Protein [Mass/Vol] 6.9 g/dL 6.4-8.2 [facility] Sodium [Moles/Vol] 139 mmol/L 136-145 [facility] Triglyceride [Mass/Vol] 178 mg/dL <199 [facility] Comment on above: The drugs N-Acetylcy steine and Metamizole may falsely depress this assay.Serum Triglycerides Reference Interval Normal <150 mg/dL Borderline high 150 - 199 mg/dL High 200 - 499 mg/dL Very High > or = 500 mg/dL WBC (Bld) [#/Vol] 7.4 10*3/uL 4.4-11.0 [facility] Blood erythrocytes count (nu mber/volume)Ordered By: Dr. Doran on 06-26-2022 RBC (Bld) [#/Vol] 4.51 10*6/uL 4.2-5.4 [facility] Blood hemoglobin measurement (mass/volume)Ordered By: Dr. Doran on 06-26-2022 Hemoglobin (Bld) [Mass/Vol] 13.5 g/dL 12.0-15.0 [facility] Blood lymphocytes/100 leukoc ytesOrdered By: Dr. Doran on 06-26-2022 Lymphocytes/100 WBC (Bld) 32.9 % 19-41 [facility] Blood monocytes/100 leukocyt esOrdered By: Dr. Doran on 06-26-2022 Monocytes/100 WBC (Bld) 9.0 % 0-10 [facility] Blood platelet mean volumeOr dered By: Dr. Doran on 06-26-2022 Platelet mean volume (Bld) [Entitic vol] 10.2 fL 6.2-12.0 [facility] Determination of erythrocyte mean corpuscular volume (MCV)Ordered By: Dr. Doran on 06-26-2022 MCV (RBC) [Entitic vol] 92.5 fL 81-99 [facility] Hematocrit Auto (Bld) [Volum e fraction]Ordered By: Dr. Doran on 06-26-2022 Hematocrit (Bld) [Volume fraction] 41.7 % 37-47 [facility] Laboratory - Chemistry and C hemistry - challengeOrdered By: Dr. Doran on 06-26-2022 ALP [Catalytic activity/Vol] 69 U/L 45-117 [facility] ALT [Catalytic activity/Vol] 13 U/L 13-56 [facility] CO2 [Moles/Vol] 29.0 mmol/L 21.0-32.0 [facility] Globulin (S) [Mass/Vol] 3.7 g/dL 2.2-4.2 [facility] Urea nitrogen/Creatinine [Mass ratio] 18.0 mg/mg 10-20 [facility] Laboratory - Hematology and Cell countsOrdered By: Dr. Doran on 06-26-2022 Erythrocyte distribution width (RBC) [Entitic vol] 43.9 fL 35.1-43.9 [facility] Erythrocyte distribution width (RBC) [Ratio] 12.9 % 11.6-14.6 [facility] Immature granulocytes/100 WBC (Bld) 0.300 % 0.0-0.9 [facility] Comment on above: IG% - Immature Granu locytes (promyelocytes, myelocytes and metamyelocytes) > 1% indicates that a LEFT SHIFT is Present. MCH (RBC) [Entitic mass] 29.9 pg 27.0-32.0 [facility] Nucleated RBC/100 WBC (Bld) [Ratio] 0 % 0-5 [facility] MCHC Auto (RBC) [Mass/Vol]Or dered By: Dr. Doran on 06-26-2022 MCHC (RBC) [Mass/Vol] 32.4 g/dL 32-36 [facility] No Panel InformationOrdered By: Dr. Doran on 06-26-2022 Estimated GFR (MDRD) Amer 60 mL/min >60 [facility] Comment on above: GFR Calc Estimated GFR (MDRD) Non-Af Amer 49 mL/min >60 [facility] Comment on above: Non- GFR Calc Platelets bldOrdered By: Dr. Doran on 06-26-2022 Platelets (Bld) [#/Vol] 314 10*3/uL 150-450 [facility] Serum or plasma albumin viktoria urement (mass/volume)Ordered By: Dr. Doran on 06-26-2022 Albumin [Mass/Vol] 3.2 g/dL 3.2-5.0 [facility] Serum or plasma albumin/glob ulin mass ratioOrdered By: Dr. Doran on 06-26-2022 Albumin/Globulin [Mass ratio] 0.9 {ratio} 0.9-2.4 [facility] Serum or plasma calcium viktoria urement (mass/volume)Ordered By: Dr. Doran on 06-26-2022 Calcium [Mass/Vol] 8.8 mg/dL 8.5-10.1 [facility] Serum or plasma cholesterol in HDL measurement (mass/volume)Ordered By: Dr. Doran on 06-26-2022 Cholesterol in HDL [Mass/Vol] 47 mg/dL >40 [facility] Comment on above: The drugs N-Acetylcy steine and Metamizole may falsely depress this assay. Reference Range HDL <40 mg/dL Low HDL Cholesterol HDL >or= 60 mg/dL High HDL Cholesterol Serum or plasma cholesterol in VLDL measurement (mass/volume)Ordered By: Dr. Doran on 06-26-2022 Cholesterol in VLDL [Mass/Vol] 36 mg/dL 5-40 [facility] Serum or plasma creatinine m easurement (mass/volume)Ordered By: Dr. Doran on 06-26-2022 Creatinine [Mass/Vol] 1.11 mg/dL 0.55-1.02 [facility] Comment on above: The validity of the calculated GFR & GFRAA in patients over 70 years has not been determined. Clinical correlation is essential. Serum or plasma low density lipoprotein (LDL) cholesterol measurement (mass/volume)Ordered By: Dr. Doran on 06-26-2022 Cholesterol in LDL [Mass/Vol] 80 mg/dL 0-130 [facility] Serum or plasma urea nitroge n measurement (mass/volume)Ordered By: Dr. Doran on 06-26-2022 Urea nitrogen [Mass/Vol] 20 mg/dL 7-18 [facility] Thin prep Papanicolaou smear with manual screeningOrdered By: Dr. Doran on 06-26-2022 Thin prep Papanicolaou smear with manual screening 15 U/L 15-37 [facility] Thin prep Papanicolaou smear with manual screening 4 5-15 [facility] Absolute lymphocyte countOrd ered By: Reese Shankar on 02-11-2022 Lymphocytes Auto (Unsp spec) [#/Vol] 1.50 10*3/uL 0.83-4.51 [facility] Basophil percentageOrdered B y: Reese Shankar on 02-11-2022 Basophils/100 WBC (Bld) 0.4 % 0-1 [facility] Chloride [Moles/Vol] 102 mmol/L 98-107 [facility] Eosinophils/100 WBC (Bld) 1.7 % 0-5 [facility] Glucose [Mass/Vol] 153 mg/dL 74-106 [facility] Comment on above: Fasting Glucose resu lt greater than or equal to 126 mg/dL suggests DIABETES MELLITUS per A.D.A. criteria. Neutrophils (Bld) [#/Vol] 10.0 10*3/uL 2.0-7.7 [facility] Neutrophils/100 WBC (Bld) 79.1 % 47-70 [facility] Potassium [Moles/Vol] 3.9 mmol/L 3.5-5.1 [facility] Sodium [Moles/Vol] 138 mmol/L 136-145 [facility] WBC (Bld) [#/Vol] 12.7 10*3/uL 4.4-11.0 [facility] Blood erythrocytes count (nu mber/volume)Ordered By: Reese Shankar on 02-11-2022 RBC (Bld) [#/Vol] 4.24 10*6/uL 4.2-5.4 [facility] Blood hemoglobin measurement (mass/volume)Ordered By: Reese Shankar on 02-11-2022 Hemoglobin (Bld) [Mass/Vol] 12.8 g/dL 12.0-15.0 [facility] Blood lymphocytes/100 leukoc ytesOrdered By: Reese Shankar on 02-11-2022 Lymphocytes/100 WBC (Bld) 11.8 % 19-41 [facility] Blood monocytes/100 leukocyt esOrdered By: Reese Shankar on 02-11-2022 Monocytes/100 WBC (Bld) 6.7 % 0-10 [facility] Blood platelet mean volumeOr dered By: Reese Shankar on 02-11-2022 Platelet mean volume (Bld) [Entitic vol] 11.0 fL 6.2-12.0 [facility] Determination of erythrocyte mean corpuscular volume (MCV)Ordered By: Reese Shankar on 02-11-2022 MCV (RBC) [Entitic vol] 91.7 fL 81-99 [facility] Hematocrit Auto (Bld) [Volum e fraction]Ordered By: Reese Shankar on 02-11-2022 Hematocrit (Bld) [Volume fraction] 38.9 % 37-47 [facility] INR in Blood by Coagulation assayOrdered By: Reese Shankar on 02-11-2022 INR Coag (Bld) [Relative time] 2.7 {INR} [facility] Laboratory - Chemistry and C hemistry - challengeOrdered By: Reese Shankar on 02-11-2022 CO2 [Moles/Vol] 26.0 mmol/L 21.0-32.0 [facility] Magnesium [Mass/Vol] 2.2 mg/dL 1.6-2.6 [facility] Urea nitrogen/Creatinine [Mass ratio] 18.5 mg/mg 10-20 [facility] Laboratory - CoagulationOrde red By: Reese Shankar on 02-11-2022 PT Coag (PPP) [Time] 28.0 s 11.7-14.9 [facility] Laboratory - Hematology and Cell countsOrdered By: Reese Shankar on 02-11-2022 Erythrocyte distribution width (RBC) [Entitic vol] 43.5 fL 35.1-43.9 [facility] Erythrocyte distribution width (RBC) [Ratio] 12.9 % 11.6-14.6 [facility] Immature granulocytes/100 WBC (Bld) 0.300 % 0.0-0.9 [facility] Comment on above: IG% - Immature Granu locytes (promyelocytes, myelocytes and metamyelocytes) > 1% indicates that a LEFT SHIFT is Present. MCH (RBC) [Entitic mass] 30.2 pg 27.0-32.0 [facility] Nucleated RBC/100 WBC (Bld) [Ratio] 0 % 0-5 [facility] MCHC Auto (RBC) [Mass/Vol]Or dered By: Reese Shankar on 02-11-2022 MCHC (RBC) [Mass/Vol] 32.9 g/dL 32-36 [facility] No Panel InformationOrdered By: Reese Shankar on 02-11-2022 Estimated Creatinine Clearance Calc 19.31 ml/min [facility] Estimated GFR (MDRD) Amer 36 mL/min >60 [facility] Comment on above: GFR Calc Estimated GFR (MDRD) Non-Af Amer 30 mL/min >60 [facility] Comment on above: Non- GFR Calc Troponin I High Sensitivity 13 pg/mL 3.0-54.0 [facility] Comment on above: Please Note: New Evon t Units and Gender Specific Reference Ranges. For more information see Policy Stat Procedure [place] High Sensitivity Troponin (TNIH) and attachments. Platelets bldOrdered By: Dontae Shankar on 02-11-2022 Platelets (Bld) [#/Vol] 286 10*3/uL 150-450 [facility] Serum or plasma calcium viktoria urement (mass/volume)Ordered By: Reese Shankar on 02-11-2022 Calcium [Mass/Vol] 9.1 mg/dL 8.5-10.1 [facility] Serum or plasma creatinine m easurement (mass/volume)Ordered By: Reese Shankar on 02-11-2022 Creatinine [Mass/Vol] 1.73 mg/dL 0.55-1.02 [facility] Comment on above: The validity of the calculated GFR & GFRAA in patients over 70 years has not been determined. Clinical correlation is essential. Serum or plasma urea nitroge n measurement (mass/volume)Ordered By: Reese Shankar on 02-11-2022 Urea nitrogen [Mass/Vol] 32 mg/dL 7-18 [facility] Thin prep Papanicolaou smear with manual screeningOrdered By: Reese Shankar on 02-11-2022 Thin prep Papanicolaou smear with manual screening 10 5-15 [facility] CNPNon 10-14-2019 CNPN Telephone (AGCARDPOB ) EZRA GONZALEZ ([id number]) 1935 F Date Time Provider Department 10/14/19 [...] artery stent placement- 2006 [Z95*11/14/2015 Atherosclerosis of [place] coronary artery of na*11/14/2015 Asymptomatic cholelithiasis [K80.20] [...] ACOSTA on 10/14/19 [facility] SUZITOUTREAJourdan 10-12-2019 CNPTOUTREA Patient Outreach ([facility]) EZRA GONZALEZ ([id number]) 1935 F Date Time Provider Department 10/12/19 SWATHI CRUZ) [facility] During your visit today, we recorded the following information about you: Swathi Cruz LPN, LEE 10/12/2019 10:48 AM Signed ED Follow Up: Patient discharged from [facility] ED on 10/11/2019 for Fall, [...] Visit: Transition Of Care [4074] Cmt: ED [facility] 10/11/2019 (Pt. has new pcp) [...] artery stent placement- 2006 [Z95*11/14/2015 Atherosclerosis of [place] coronary artery of na*11/14/2015 Asymptomatic cholelithiasis [K80.20] [...] OBSOLETEon 10-12-2019 OBSOLETE Refill ([facility]) EZRA GONZALEZ ([id number]) 1935 F Date Time Provider Department 10/12/19 JO PEREZ [facility] During your visit today, we recorded [...] Visit date not found Patient Phone numbers: [phone] (home) Request is for script(s) to be [...] artery stent placement- 2006 [Z95*11/14/2015 Atherosclerosis of [place] coronary artery of na*11/14/2015 Asymptomatic cholelithiasis [K80.20] [...] [facility] PRO[facility]ESS[facility] 10-12-2019 PROGRESS HNO ID: [id number] Author: Swathi Cruz LPN Service: ? Author Type: LICENSED NURSE Type: Progress Notes Filed: 10/12/2019 10:48 AM Note Text: ED Follow Up: Patient discharged from [facility] ED on 10/11/2019 for Fall, rib fracture Outreach # 1, Contact Made. Patient was called at this time. Patient verified by name and . Patient stated she has a new PCP Dr. Sada Doran who she will follow up with. Swathi Cruz LPN 10/12/2019 10:45 AM [facility] CNPMari 10-06-2019 JAROD Telephone ([facility]) EZRA GONZALEZ ([id number]) 1935 F Date Time Provider Department 10/06/19 [...] Date: 12/30/16 +++Patient gets lab draw at [facility] in [place] [phone]+++ PT INR Date Value Ref Range Status [...] Estefania Cevallos, JpD Allergies As of Date: 10/06/2019 Noted Allergy [...] (HCC) [I48.91] Order(s):PROTHROMBIN TIME/PT [SQPT] Order #: [id number] Prescriptions as of 10/06/2019 Sig: METOPROLOL SUCCINATE [...] artery stent placement- 2006 [Z95*11/14/2015 Atherosclerosis of [place] coronary artery of na*11/14/2015 Asymptomatic cholelithiasis [K80.20] [...] [facility] Bao 09-22-2019 CNPN Telephone ([facility]) LISAEZRA Alis ([id number]) 1935 F Date Time Provider Department 09/22/19 JO PEREZ [facility] During your visit today, we recorded the following information about you: Maryanne Gomez MA 09/22/2019 10:38 AM Signed Patient is aware that you are going to be leaving the practice. She states she recently moved down to [place] and wants to find a physician closer to her Is there anyone that you recommend Maryanne Gomez MA 09/22/2019 10:37 AM Jo Perez MD 09/22/2019 12:[address] barker at [facility] Alicia Park LPN 09/22/2019 1:21 PM [...] Fully Assessed Reason for Visit: Patient Question [0860] Cmt: Phys[facility] in [facility] Prescriptions as [...] artery stent placement- 2006 [Z95*11/14/2015 Atherosclerosis of [place] coronary artery of na*11/14/2015 Asymptomatic cholelithiasis [K80.20] [...] PARK on 09/22/19 [facility] CNPTOUTREACHochastity 09-22-2019 [facility] Patient Outreach ([facility]) EZRA GONZALEZ ([id number]) 1935 F Date Time Provider Department 09/22/19 MARYANNE GOMEZ) [facility] During your visit today, we recorded the following information about you: Maryanne Gomez MA 09/22/2019 10:34 AM Signed HIGH RISK CHRONIC DISEASE MONITORING - [facility] Provider Action/FYI: Patient doing well Contact made with patient: Yes Hi my name is Maryanne Gomez MA and I am calling from the [facility] on behalf of your PCP. I'm calling [...] like to speak with a social work merchandise flow team member to help give you support [...] artery stent placement- 2006 [Z95*11/14/2015 Atherosclerosis of [place] coronary artery of na*11/14/2015 Asymptomatic cholelithiasis [K80.20] [...] Encounter Status:Closed by MARYANNE GOMEZ on 09/22/19 [facility] PROGRESSon 09-22-2019 PROGRESS HNO ID: [id number] Author: Maryanne Gomez Service: ? Author Type: Feeder Catcher Tobacco Type: Progress Notes Filed: 09/22/2019 10:34 AM Note Text: HIGH RISK CHRONIC DISEASE MONITORING - [facility] Provider Action/FYI: Patient doing well Contact made with patient: Yes Hi my name is Maryanne Gomez MA and I am calling from the [facility] on behalf of your PCP. I'm calling [...] like to speak with a social work merchandise flow team member to help give you support [...] Maryanne Gomez MA 09/22/2019 10:[address] [facility] CNPTOUTREACHon 09-21-[address] [facility] ([facility]) LISAEZRA Snell ([id number]) 1935 F Date Time Provider Department 09/21/19 JO PEREZ [facility] During your visit today, we recorded the following information about you: Alicia Park LPN 09/21/2019 10:43 AM Signed HIGH RISK CHRONIC DISEASE MONITORING - [facility] Provider Action/FYI: Contact made with patient: No - Left 1st message - Hi my name is Alicia Park LPN and I am calling from the [facility] on behalf of your PCP, Jo Perez [...] artery stent placement- 2006 [Z95*11/14/2015 Atherosclerosis of [place] coronary artery of na*11/14/2015 Asymptomatic cholelithiasis [K80.20] [...] [facility] PROGRESSon 09-21-2019 PROGRESS HNO ID: [id number] Author: Alicia Bush) Vivian Service: ? Author Type: LICENSED NURSE Type: Progress Notes Filed: 09/21/2019 10:43 AM Note Text: HIGH RISK CHRONIC DISEASE MONITORING - [facility] Provider Action/FYI: Contact made with patient: No - Left 1st message - Hi my name is Alicia Park LPN and I am calling from the [facility] on behalf of your PCP, oJ Perez MD Because of the COVID-19 outbreak, [...] Outreach. End outreach.) Outreach ended [facility] CNPNon 09-02-2019 CNPN Telephone ([facility]) EZRA GONZALEZ ([id number]) 1935 F Date Time Provider Department 09/02/19 ESTEFANIA CEVALLOS During your visit today, we recorded the following information about you: Estefania Cevallos, Angela 09/02/2019 11:16 AM Signed Please check with patient to see if she has been to the lab recently for an INR. We have not received an INR since June. Estefania Cevallos, Angela Ovalles LPN, LPN 09/02/2019 11:20 AM Signed Called [...] Date: 12/30/16 +++Patient gets lab draw at [facility] in [place] [phone]+++ PT INR Date Value Ref Range Status 09/02/2019 2.2 Final Warfarin Dose: 2mg Eduardo day Friday; 3mg all other days of the [...] have next INR drawn at [facility] in [place] next month. Order placed. Estefania Cevallos PharmD [...] (HCC) [I48.91] Order(s):PROTHROMBIN TIME/PT [SQPT] Order #: [id number] PROTHROMBIN TIME/PT [SQPT] Order #: [id number] STANDING Prescriptions as of 09/02/2019 Sig: METOPROLOL [...] artery stent placement- 2006 [Z95*11/14/2015 Atherosclerosis of [place] coronary artery of na*11/14/2015 Asymptomatic cholelithiasis [K80.20] [...] 09/03/19 [facility] CNPTOUTREACHon 08-12-2019 CNPTOUTREA Patient Outreach ([facility]) EZRA GONZALEZ ([id number]) 1935 F Date Time Provider Department 08/12/19 MARYANNE GOMEZ) [facility] During your visit today, we recorded the following information about you: Maryanne Gomez MA 08/12/2019 9:39 AM Signed HIGH RISK CHRONIC DISEASE MONITORING - [facility] Provider Action/FYI: Left 2nd message, will add patient to schedule for a month Contact made with patient: No, Left 2nd message - Hi my name is Maryanne Gomez MA and I am calling from the [facility] on behalf of your PCP, Jo Perez [...] artery stent placement- 2006 [Z95*11/14/2015 Atherosclerosis of [place] coronary artery of na*11/14/2015 Asymptomatic cholelithiasis [K80.20] [...] Encounter Status:Closed by MARYANNE GOMEZ on 08/12/[address] [facility] PROGRESSon 08-12-2019 PROGRESS HNO ID: [id number] Author: Maryanne Gomez Service: ? Author Type: Feeder Catcher Tobacco Type: Progress Notes Filed: 08/12/2019 9:39 AM Note Text: HIGH RISK CHRONIC DISEASE MONITORING - [facility] Provider Action/FYI: Left 2nd message, will add patient to schedule for a month Contact made with patient: No, Left 2nd message - Hi my name is Maryanne Gomez MA and I am calling from the [facility] on behalf of your PCP, Jo Perez [...] Track Pt Outreach. End outreach.) Outreach ended Mrayanne Gomez MA 08/12/2019 9:[address] [facility] CNPTOUTREACHon 08-11-[address]reach ([facility]) EZRA GONZALEZ ([id number]) 1935 F Date Time Provider Department 08/11/19 MARYANNE GOMEZ) [facility] During your visit today, we recorded the following information about you: Maryanne Gomez MA 08/11/2019 10:02 AM Signed HIGH RISK CHRONIC DISEASE MONITORING - [facility] Provider Action/FYI: Left message, will add to schedule for tomorrow Contact made with patient: No - Left 1st message - Ok my name is Maraynne Gomez MA and I am calling from the [facility] on behalf of your PCP, Jo Perez [...] artery stent placement- 2006 [Z95*11/14/2015 Atherosclerosis of [place] coronary artery of na*11/14/2015 Asymptomatic cholelithiasis [K80.20] [...] [facility] PROGRESSon 08-11-2019 PROGRESS HNO ID: [id number] Author: Maryanne Gomez Service: ? Author Type: Feeder Catcher Tobacco Type: Progress Notes Filed: 08/11/2019 10:02 AM Note Text: HIGH RISK CHRONIC DISEASE MONITORING - [facility] Provider Action/FYI: Left message, will add to schedule for tomorrow Contact made with patient: No - Left 1st message - Hi my name is Maryanne Gomez MA and I am calling from the [facility] on behalf of your PCP, Jo Perez [...] OBSOLETEon 08-05-2019 OBSOLETE Refill ([facility]) EZRA GONZALEZ ([id number]) 1935 F Date Time Provider Department 08/05/19 [...] artery stent placement- 2006 [Z95*11/14/2015 Atherosclerosis of [place] coronary artery of na*11/14/2015 Asymptomatic cholelithiasis [K80.20] [...] OROURKE on 08/05/19 [facility] CNPTOUTREACHon 08-04-2019 [facility] Patient Outreach ([facility]) EZRA GONZALEZ ([id number]) 1935 F Date Time Provider Department 08/04/19 MARYANNE GOMEZ) [facility] During your visit today, we recorded the following information about you: Maryanne Gomez MA 08/04/2019 11:03 AM Signed HIGH RISK CHRONIC DISEASE MONITORING - [facility] Provider Action/FYI: Patient has no questions or concerns at this time Contact made with patient: Yes Hi my name is Maryanne Gomez MA and I am calling from the [facility] on behalf of your PCP. I'm calling [...] like to speak with a social work merchandise flow team member to help give you support [...] artery stent placement- 2006 [Z95*11/14/2015 Atherosclerosis of [place] coronary artery of na*11/14/2015 Asymptomatic cholelithiasis [K80.20] [...] by MARYANNE GOMEZ on 08/04/19 [facility] PROGRESSon 08-04-2019 PROGRESS HNO ID: [id number] Author: Maryanne Gomez Service: ? Author Type: Feeder Catcher Tobacco Type: Progress Notes Filed: 08/04/2019 11:03 AM Note Text: HIGH RISK CHRONIC DISEASE MONITORING - [facility] Provider Action/FYI: Patient has no questions or concerns at this time Contact made with patient: Yes Hi my name is Maryanne Gomez MA and I am calling from the [facility] on behalf of your PCP. I'm calling [...] like to speak with a social work merchandise flow team member to help give you support [...] Maryanne Gomez MA 08/04/2019 11:[address] [facility] OBSOLETEon 08-03-2019 OBSOLETE Refill (AGCARDPOB) LISAEZRA ([id number]) 1935 F Date Time Provider Department 08/03/19 [...] artery stent placement- 2006 [Z95*11/14/2015 Atherosclerosis of [place] coronary artery of na*11/14/2015 Asymptomatic cholelithiasis [K80.20] [...] CNP on 08/03/19 [facility] CNPTOUTREACHochastity 07-28-[address] [facility] EZRA GONZALEZ ([id number]) 1935 F Date Time Provider Department 07/28/19 MARYANNE GOMEZ) [facility] During your visit today, we recorded the following information about you: Maryanne Gomez MA 07/28/2019 3:18 PM Signed HIGH RISK CHRONIC DISEASE MONITORING - [facility] Provider Action/FYI: Patient wants to know if you still want her to take her Metformin. She takes it but then wonders to her self, does she really need it." Patient wants you to know she has [...] MA and I am calling from the [facility] on behalf of your PCP. I'm calling [...] to her self, does she really need it." Do you need any medication refills at this time, including any of the medications you might take only when needed? No ACTION TAKEN: No action required SOCIAL: We would like to make sure you have what you need so that your basics needs are met - including your personal safety, food, housing and medications. 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 (you can just route this chart to [...] use of insulin (HCC) [E11.9] Order(s):HGB A1C [PMDJA5E] Order #: [id number] FUTURE LIPID PANEL BASIC [SQLIPB] Order #: [id number] FUTURE COMP METABOLIC PANEL [SQCMP] Order #: [id number] FUTURE ALBUMIN QUANT 24H UR [SQUALBQ] Order #: [id number] FUTURE Prescriptions as of 07/28/2019 Sig: SIMVASTATIN [...] artery stent placement- 2006 [Z95*11/14/2015 Atherosclerosis of [place] coronary artery of na*11/14/2015 Asymptomatic cholelithiasis [K80.20] [...] OBSOLETEon 07-28-2019 OBSOLETE Refill (AGCARDHWG) EZRA GONZALEZ ([id number]) 1935 F Date Time Provider Department 07/28/19 [...] artery stent placement- 2006 [Z95*11/14/2015 Atherosclerosis of [place] coronary artery of na*11/14/2015 Asymptomatic cholelithiasis [K80.20] [...] Status:Closed by ARCELIA LOCKETT CNP on 07/28/[address] [facility] PROGRESSon 07-28-2019 PROGRESS HNO ID: [id number] Author: Maryanne Gomez Service: ? Author Type: Feeder Catcher Tobacco Type: Progress Notes Filed: 07/28/2019 3:18 PM [...] [facility] PROGRESS HNO ID: [id number] Author: Jo Perez Service: ? 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 Author Type: Feeder Catcher Tobacco Type: Progress Notes Filed: 07/28/2019 3:18 PM Note Text: HIGH RISK CHRONIC DISEASE MONITORING - [facility] Provider Action/FYI: Patient wants to know if you still want her to take her Metformin. She takes it but then wonders to her self, does she really need it." Patient wants you to know she has [...] MA and I am calling from the [facility] on behalf of your PCP. I'm calling [...] to her self, does she really need it." Do you need any medication refills at this time, including any of the medications you might take only when needed? No ACTION TAKEN: No action required SOCIAL: We would like to make sure you have what you need so that your basics needs are met - including your personal safety, food, housing and medications. Would you like to speak with a social work merchandise flow team member to help give you support [...] Maryanne Gomez MA 07/28/2019 2:[address] [facility] OBSOLETEon 07-14-2019 OBSOLETE Refill ([facility]) EZRA GONZALEZ ([id number]) 1935 F Date Time Provider Department 07/14/19 JO PEREZ [facility] During your visit today, we recorded the following information about you: Anne Marie Britorell Morrison 07/14/2019 9:33 AM Signed Pharmacy faxed [...] Visit date not found Patient Phone numbers: [phone] (home) Request is for script(s) to be escript to pharmacy. Anne Marie Anjel Perez MD 07/14/2019 12:38 PM Signed She [...] artery stent placement- 2006 [Z95*11/14/2015 Atherosclerosis of [place] coronary artery of na*11/14/2015 Asymptomatic cholelithiasis [K80.20] [...] [facility] OBSOLETE Refill (AGCARDPOB) EZRA GONZALEZ ([id number]) 1935 F Date Time Provider Department 07/14/19 [...] artery stent placement- 2006 [Z95*11/14/2015 Atherosclerosis of [place] coronary artery of na*11/14/2015 Asymptomatic cholelithiasis [K80.20] [...] Status:Closed by RICKEY CHAVARRIA MD on 07/14/19 [facility] 07-12-2019 CNPN Telephone ([facility]) EZRA GONZALEZ ([id number]) 1935 F Date Time Provider Department 07/12/19 [facility] During your visit today, we [...] Date: 12/30/16 +++Patient gets lab draw at [facility] in [place] [phone]+++ PT INR Date Value Ref Range Status [...] (HCC) [I48.91] Order(s):PROTHROMBIN TIME/PT [SQPT] Order #: [id number] Prescriptions as of 07/12/2019 Sig: LISINOPRIL 5 [...] artery stent placement- 2006 [Z95*11/14/2015 Atherosclerosis of [place] coronary artery of na*11/14/2015 Asymptomatic cholelithiasis [K80.20] [...] right [M75.101, *02/04/2019 Encounter Status:Closed by BHAKTI (PHARMACIST)ESETFANIA on 07/12/19 [facility] OBSOLETEon 07-05-2019 OBSOLETE Refill ([facility]) EZRA GONZALEZ ([id number]) 1935 F Date Time Provider Department 07/05/19 JO PEREZ During your visit today, we [...] Patient next appointment: 07/28/2019 Patient Phone numbers: [phone] (home) Request is for script(s) to be escript to pharmacy. MYRIAM Lovelace Spade 07/13/2019 11:23 AM Signed Pharmacy called to say Ranitidine was recalled and Pepcid is on backorder. Asked what we want to do as an alternative. Spoke with Dr. Perez and she said Omeprazole 20 mg once a day. Asked the pharmacy to either call the office or the patient once Pepcid is no longer on backorder per Dr. Perez. Bernarda Spade 07/13/2019 11:23 AM Allergies As of Date: [...] artery stent placement- 2006 [Z95*11/14/2015 Atherosclerosis of [place] coronary artery of na*11/14/2015 Asymptomatic cholelithiasis [K80.20] [...] [facility] OBSOLETEon 07-01-2019 OBSOLETE Refill ([facility]) EZRA GONZALEZ ([id number]) 1935 F Date Time Provider Department 07/01/19 JO PEREZ [facility] During your visit today, we recorded the following information about you: Robert Diaz CMA 07/01/2019 9:20 AM Signed Patient called requesting the following refill. Pending Prescriptions Disp Refills RANITIDINE 150 MG TABLET 90 tablet 0 Sig: Take 1 tablet by mouth once daily. SHAHEEN: No Last refill: 03/18/2019 Patient last appointment: 06/10/2019 Patient next appointment: 07/28/2019 Patient Phone numbers: [phone] (home) Request is for script(s) to be [...] artery stent placement- 2006 [Z95*11/14/2015 Atherosclerosis of [place] coronary artery of na*11/14/2015 Asymptomatic cholelithiasis [K80.20] [...] 07/01/19 [facility] 06-10-2019 CNPN Telephone ([facility]) EZRA GONZALEZ ([id number]) 1935 F Date Time Provider Department 06/10/19 [...] artery stent placement- 2006 [Z95*11/14/2015 Atherosclerosis of [place] coronary artery of na*11/14/2015 Asymptomatic cholelithiasis [K80.20] [...] 06/10/19 [facility] 06-07-2019 CNPN Telephone ([employer]) EZRA GONZALEZ ([id number]) 1935 F Date Time Provider Department 06/07/19 ESTEFANIA CEVALLOS During your visit today, we recorded the following information about you: Estefania Cevallos, Angela 06/07/2019 2:52 PM Signed Referred by Dr. [...] She has a history of hemarthrosis in 2015 when INR was 14 secondary to interaction with warfarin and fluconazole. Date consult agreement signed by physician: 12/26/16 Patient has been notified verbally and/or in writing of the terms of the pharmacist-physician consult agreement for the anticoagulation clinic. Date: 12/30/16 +++Patient gets lab draw at [facility] in [place] [phone]+++ PT INR Date Value Ref Range Status [...] Estefania Cevallos, PharmD Allergies As of Date: 06/07/2019 Noted [...] (HCC) [I48.91] Order(s):PROTHROMBIN TIME/PT [SQPT] Order #: [id number] Prescriptions as of 06/07/2019 Sig: COQ-10 ORAL [...] artery stent placement- 2006 [Z95*11/14/2015 Atherosclerosis of [place] coronary artery of na*11/14/2015 Asymptomatic cholelithiasis [K80.20] [...] by BHAKTI (PHARMACIST)ESTEFANIA on 06/07/19 [facility] 06-04-2019 CNPN Telephone ([facility]) EZRA GONZALEZ ([id number]) 1935 F Date Time Provider Department 06/04/19 [...] artery stent placement- 2006 [Z95*11/14/2015 Atherosclerosis of [place] coronary artery of na*11/14/2015 Asymptomatic cholelithiasis [K80.20] [...] BHAKTI (PHARMACIST)ESTEFANIA on 06/04/19 [facility] CNOVon 05-13-2019 CNOV Office Visit (AGHWW1 ) EZRA GONZALEZ ([id number]) 1935 F Date Time Provider Department 05/13/19 4:00 PM CRUZ SANCHEZ AGHWW1 During your visit today, we recorded the following information about you: Respiration Weight Height 18/minute 82.6 kg 1.613 m Cruz Sanchez MD 05/13/2019 5:00 PM Signed HISTORY OF PRESENT ILLNESS: Ezra Gonzalez is an 83-year-old qudmm-kvzv-hstgpdmk female who returns for follow-up right shoulder [...] associated with diabetes mellitus (HCC) - Old AL (myocardial infarction) 2006 - On anticoagulant therapy - On lobsterman drug therapy - Osteoarthritis - Peripheral venous [...] ABLATION 2011 - TOTAL HIP REPLACEMENT Left 2010 - [...] R Shoulder CARDIOVASCULAR: Peripheral venous insufficiency, h/o AL, HTN, Coronary Arteriosclerosis, A-Fib, Cardiac Ablation MSK: Spinal Stenosis, Rotator Cuff Syndrome, Osteoarthritis, DJD, B TKA, R Shoulder RCR Sx 2011, B Foot Sx SKIN: Negative for lesions, rash, itching, metal sensitivity NEURO: Negative for seizure, trauma, numbness/tingling of extremities. ENDOCRINE: DM II Controlled, Diabetic Renal Disease, CKD Stage III, HEMATOLOGY: [place] PHYSICAL EXAMINATION: Vital Signs Resp 18 Ht 5' 3.5" (1.61m) Wt 182 lb (82.6kg) BMI 31.73 [...] Completed Time Out: Time Out completed The "Time-Out" verifies the correct patient, procedure, side/site, position [...] [Z98.890] Order(s):Large Joint Arthro/Inj: R subacromial bursa [WZK652] Order #: [id number] betamethasone acetate-betamethasone sodium phosphate 12 mg injection [...] artery stent placement- 2006 [Z95*11/14/2015 Atherosclerosis of [place] coronary artery of na*11/14/2015 Asymptomatic cholelithiasis [K80.20] [...] [facility] PROGRESSon 05-13-2019 PROGRESS HNO ID: [id number] Author: Cruz Sanchez Service: ? Author Type: Physician Type: Progress Notes Filed: 05/13/2019 5:00 PM Note Text: HISTORY OF PRESENT ILLNESS: Ezra Gonzalez is an 83-year-old zsajc-laze-pdtvhqki female who returns for follow-up right shoulder [...] associated with diabetes mellitus (HCC) - Old [place] (myocardial infarction) 2006 - On anticoagulant therapy - On mcc drug therapy - Osteoarthritis - Peripheral venous [...] ONE TABLET BY MOUTH once DAILY - MART[place]EN 2 mg tablet TAKE 2 MG BY [...] R Shoulder CARDIOVASCULAR: Peripheral venous insufficiency, h/o AL, HTN, Coronary Arteriosclerosis, A-Fib, Cardiac Ablation MSK: Spinal Stenosis, Rotator Cuff Syndrome, Osteoarthritis, DJD, B TKA, R Shoulder RCR Sx 2010, B Foot Sx SKIN: Negative for lesions, rash, itching, metal sensitivity NEURO: Negative for seizure, trauma, numbness/tingling of extremities. ENDOCRINE: DM II Controlled, Diabetic Renal Disease, CKD Stage III, HEMATOLOGY: PHYSICAL EXAMINATION: Vital Signs Resp 18 Ht 5' 3.5" (1.61m) Wt 182 lb (82.6kg) BMI 31.73 [...] Completed Time Out: Time Out completed The "Time-Out" verifies the correct patient, procedure, side/site, position [...] MD [facility] CNOVon 04-27-2019 CN Office Visit ([facility]) EZRA GONZALEZ ([id number]) 1935 F Date Time Provider Department 04/27/19 3:40 PM JO PEREZ During your visit today, we [...] coronary artery stent placement- 2006 Atherosclerosis of [place] Coronary Artery of [place] Heart Without Angina Pectoris Asymptomatic Cholelithiasis History [...] Hebert Chiropractor 05/19/2015 End 05/19/15 ; Patito Nirmal Gonzalez Podiatry 05/19/2015 End 05/19/15 Nirmal Bogdan Justo PUBLIC SPACE ATTENDANT 07/07/2017 End 07/07/17 ; Mohan Álvarez Ophthalmology 07/07/2017 End 07/07/17 Rickey Duffy Bishop Cardiology 09/30/2018 End 09/30/18 ; End of Live Planning discussed including patients advanced directive wishes: Yes I am willing to follow advanced directives. Mini-Cog Patient asked to remember the following three words: Banana, [place] and Chair Visuospatial/Executiv e Functioning: Clock drawin/2 (Normal clock with all number in correct sequence and position, hands are correct = 2 points, inability or refusal to draw a clock = 0) Three word recall: / Total score: 5/5 (Total score = word [...] No history of dysuria, frequency or incontinence NURSE: Negative for abnormal vaginal bleeding, abnormal vaginal [...] ?F) Resp 17 Ht 161.3 cm (5' 3.5") Wt 82.6 kg (182 lb) BMI 31.73 [...] with supplements or by diet (goal of 3593-7177 mg/day - Discussed need and benefit for [...] arise. - Discussed diabetic education issues of lobsterman diabetic complications, hypoglycemic symptoms, hyperglycemic symptoms, diet, [...] prepared fairly simply. If you were a nqfn-omr-wevjeubf eater, focus on the meat more than [...] your kitchen up for success. Always have url-emoh-gnsbucix foods on hand ready to eat. Remove [...] you look forward to exercise as you "alone time," plan times when you can work out [...] unspecified type [R19.7] Order(s):ADMIN OF INFLUENZA VACCINE [K1179PUP] Order #: [id number]: 1 INFLUENZA SEASONAL HIGH DOSE AGE 65+ [15807WIA] Order #: [id number] metFORMIN (GLUCOPHAGE) 500 mg tabletTake 1 tablet by mouth daily with breakfast.Disp: Rfl: HGB A1C [FGBVO5R] Order #: [id number] FUTURE COMP METABOLIC PANEL [SQCMP] Order #: [id number] FUTURE Prescriptions as of 04/27/2019 Sig: COQ-10 [...] MG TABLET TAKE ONE TABLET BY MOUTH DAITI* LANCETS Use as instructed METOPROLOL SUCCINATE ER [...] artery stent placement- 2006 [Z95*11/14/2015 Atherosclerosis of [place] coronary artery of na*11/14/2015 Asymptomatic cholelithiasis [K80.20] [...] prepared fairly simply. If you were a qyme-fyp-ebsassde eater, focus on the meat more than [...] your kitchen up for success. Always have zly-fxjr-bkwnqsnd foods on hand ready to eat. Remove [...] you look forward to exercise as you "alone time," plan times when you can work out [...] by JO PEREZ on 04/27/19 [facility] PROGRESSon 04-27-2019 PROGRESS HNO ID: [id number] Author: Jo Perez Service: ? Author Type: [...] coronary artery stent placement- 2006 Atherosclerosis of [place] Coronary Artery of [place] Heart Without Angina Pectoris Asymptomatic Cholelithiasis History [...] Gonzalez Podiatry 05/19/2015 End 05/19/15 Nirmal Kemp PUBLIC SPACE ATTENDANT 07/07/2017 End 07/07/17 ; Mohan Álvarez Ophthalmology 07/07/2017 End 07/07/17 Rickey Chavarria Cardiology 09/30/2018 End 09/30/18 ; End of Live Planning discussed including patients advanced directive wishes: Yes I am willing to follow advanced directives. Mini-Cog Patient asked to remember the following three words: [place], [place] and Chair Visuospatial/Executiv e Functioning: Clock drawin/2 (Normal clock with all number in correct sequence and position, hands are correct = 2 points, inability or refusal to draw a clock = 0) Three word recall: 3/ Total score: 5/5 (Total score = word [...] No history of dysuria, frequency or incontinence NURSE: Negative for abnormal vaginal bleeding, abnormal vaginal [...] ?F) Resp 17 Ht 161.3 cm (5' 3.5") Wt 82.6 kg (182 lb) BMI 31.73 [...] with supplements or by diet (goal of 4179-9635 mg/day - Discussed need and benefit for [...] arise. - Discussed diabetic education issues of lobsterman diabetic complications, hypoglycemic symptoms, hyperglycemic symptoms, diet, [...] Lipid panel [facility] ) EZRA GONZALEZ ([id number]) 1935 F Date Time Provider Department 03/18/19 4:00 PM CRUZ SANCHEZ AGHWW1 During your visit today, we recorded the following information about you: Respiration Weight Height 17/minute 80.7 kg 1.651 m Cruz Sanchez MD 03/18/2019 7:00 PM Signed HISTORY OF PRESENT ILLNESS: Ezra Gonzalez is an 83-year-old wvcbd-ssnf-iyjgqfoy female who returns for follow-up right shoulder [...] and strength with continued physical therapy in [place]. 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 Author Type: Physician Type: Progress Notes Filed: 03/18/2019 7:00 PM Note Text: HISTORY OF PRESENT ILLNESS: Ezra Gonzalez is an 83-year-old ljsmi-tfrw-hnhbcjig female who returns for follow-up right shoulder [...] and strength with continued physical therapy in [place]. She is currently using the yellow to [...] associated with diabetes mellitus (HCC) - Old AL (myocardial infarction) 2006 - On anticoagulant therapy - On lobsterman drug therapy - Osteoarthritis - Peripheral venous [...] EXAMINATION: Vital Signs Resp 17 Ht 5' 5" (1.65m) Wt 178 lb (80.7kg) BMI 29.62 [...] [facility] OBSOLETEon 03-17-2019 OBSOLETE Refill ([facility]) EZRA GONZALEZ ([id number]) 1935 F Date Time Provider Department 03/17/19 VIPUL BUCHANAN ([facility]) [facility] During your visit today, we recorded [...] Visit date not found Patient Phone numbers: [phone] (home) Request is for script(s) to be [...] artery stent placement- 2006 [Z95*11/14/2015 Atherosclerosis of [place] coronary artery of na*11/14/2015 Asymptomatic cholelithiasis [K80.20] [...] 03/18/19 [facility] EZRA GONZALEZ ([id number]) 1935 F Date Time Provider Department 03/17/19 JO PEREZ [facility] During your visit today, we recorded the following information about you: Anne Marie Hobbs Reg 03/18/2019 7:41 AM Signed Pharmacy faxed requesting the following refill. Pending Prescriptions Disp Refills RANITIDINE 150 MG TABLET 90 tablet 0 Sig: TAKE ONE TABLET BY MOUTH EVERY DAY SHAHEEN: Yes Last refill: 12/16/2018 Patient last appointment: 09/30/2018 Patient next appointment: 04/02/2019 Patient Phone numbers: [phone] (home) Request is for script(s) to be [...] artery stent placement- 2006 [Z95*11/14/2015 Atherosclerosis of [place] coronary artery of na*11/14/2015 Asymptomatic cholelithiasis [K80.20] [...] PEREZ on 03/18/19 [facility] Office Visit (AGHWW1 ) EZRA GONZALEZ ([id number]) 1935 F Date Time Provider Department 02/04/19 1:30 PM [facility] During your visit today, we recorded the following information about you: Respiration Weight Height 17/minute 80.7 kg 1.676 m Cruz Sanchez MD 02/04/2019 4:40 PM Signed HISTORY OF PRESENT ILLNESS: Ezra Gonzalez was provided orthopedic evaluation regarding right shoulder complaints. Patient is an 83-year-old ffxpn-lkjj-pzqwfpxb female who is previously known status post [...] associated with diabetes mellitus (HCC) - Old AL (myocardial infarction) 2006 - On anticoagulant therapy - On lobsterman drug therapy - Osteoarthritis - Peripheral venous [...] conditions CARDIOVASCULAR: A-Fib, Coronary Arteriosclerosis, HTN, Old AL, Peripheral Venous Inufficiency, MSK: Degenerative Joint Disease, O.A., Rotator Cuff Syndrome, Spinal Stenosis, L ELÍAS 2009, R Shoulder Sx Dr Lippitt SKIN: Negative for lesions, rash, itching, metal sensitivity NEURO: Negative for seizure, trauma, numbness/tingling of extremities. ENDOCRINE: DM II Controlled, Renal Disorder, Diabetic Renal Disease, CKD Stage III HEMATOLOGY: Coumadin PHYSICAL EXAMINATION: Vital Signs Resp 17 Ht 5' 6" (1.68m) Wt 178 lb (80.7kg) BMI 28.74 [...] GENERAL 3V OR MORE AP/TRUE AP/OTHER RT [[id number]] Order #: [id number] CONSULT TO PHYSICAL THERAPY (AG) [3006327] Order #: [id number]: 1 DRAIN/INJECT LARGE JOINT/BURSA [[id number]] Order #: [id number] [] betamethasone acetate-betamethasone sodium phosphate 12 mg [...] stent placement- 2006 [Z95*INVALID FOR* Atherosclerosis of [place] coronary artery of na*INVALID FOR* Asymptomatic cholelithiasis [...] [facility] PROGRESSon 02-04-2019 PROGRESS HNO ID: [id number] Author: Cruz Sanchez Service: ? Author Type: Physician Type: Progress Notes Filed: 02/04/2019 4:40 PM Note Text: HISTORY OF PRESENT ILLNESS: Ezra Gonzalez was provided orthopedic evaluation regarding right shoulder complaints. Patient is an 83-year-old lwgxm-jnzs-jsivorhb female who is previously known status post [...] associated with diabetes mellitus (HCC) - Old AL (myocardial infarction) 2006 - On anticoagulant therapy - On lobsterman drug therapy - Osteoarthritis - Peripheral venous [...] conditions CARDIOVASCULAR: A-Fib, Coronary Arteriosclerosis, HTN, Old AL, Peripheral Venous Inufficiency, MSK: Degenerative Joint Disease, O.A., Rotator Cuff Syndrome, Spinal Stenosis, L ELÍAS 2010, R Shoulder Sx Dr Sanchez SKIN: Negative for lesions, rash, itching, metal sensitivity NEURO: Negative for seizure, trauma, numbness/tingling of extremities. ENDOCRINE: DM II Controlled, Renal Disorder, Diabetic Renal Disease, CKD Stage III HEMATOLOGY: Coumadin PHYSICAL EXAMINATION: Vital Signs Resp 17 Ht 5' 6" (1.68m) Wt 178 lb (80.7kg) BMI 28.74 [...] OBSOLETEon 01-21-2019 OBSOLETE Refill ([facility]) EZRA GONZALEZ ([id number]) 1935 F Date Time Provider Department 01/21/19 [...] Myalgias Date Reviewed: 11/27/2018 Reviewed by: Vika CastroNew [facility]KiskiFinesse Torres - Fully Assessed Reason for Visit: [...] stent placement- 2006 [Z95*INVALID FOR* Atherosclerosis of [place] coronary artery of na*INVALID FOR* Asymptomatic cholelithiasis [...] 01/21/19 [facility] OBSOLETE Refill ([facility]) EZRA GONZALEZ ([id number]) 1935 F Date Time Provider Department 01/21/19 JO PEREZ [facility] During your visit today, we recorded the following information about you: Anne Marie Hobbs Reg 01/21/2019 12:05 PM Signed Pharmacy faxed requesting the following refill. Pending Prescriptions Disp Refills FUROSEMIDE 20 MG TABLET 90 tablet 2 Sig: TAKE ONE TABLET BY MOUTH ONCE DAILY SHAHEEN: Yes Last refill: 01/05/2018 Patient last appointment: 09/30/2018 Patient next appointment: 04/02/2019 Patient Phone numbers: [phone] (home) Request is for script(s) to be [...] Myalgias Date Reviewed: 11/27/2018 Reviewed by: Vika ([facility]) Brian - Fully Assessed Reason for Visit: [...] stent placement- 2006 [Z95*INVALID FOR* Atherosclerosis of [place] coronary artery of na*INVALID FOR* Asymptomatic cholelithiasis [...] [facility] CNTHERAPYon 12-14-2018 CNTHERAPY OT/PT/Speech Visit (MASTWP) LISAEZRA ([id number]) 1935 F Date Time Provider Department 12/14/18 11:00 AM ANOOP COLLAZO (JAZMYN) [facility] Date Time Provider Department Center 12/14/2018 11:00 AM [id number] COLLAZO*AKSTWP NOLAN LONG Reason for Visit: Difficulty In [...] Myalgias Date Reviewed: 11/27/2018 Reviewed by: Vika CastroNew [facility]) Brian - Fully Assessed Prescriptions as of [...] by mouth onc* Progress Notes: Jazmyn Hinson, JAZMYN 12/14/2018 4:44 PM Signed [facility] AUDIOLOGIC EVALUATION REPORT 12/14/2018 Page 1 of 3 Patient: Ezra Gonzalez : 1935 Referred by: Jo Perez (PCP: Yazmin) Referred for: Evaluation of suspected change in hearing, tinnitus, or balance. Referral documented: In an order in Epic: OTHER ORDERS: : CONSULT TO AUDIOLOGY FOR DIAGNOSTIC TESTING [9003] (Order [id number]) Patient's major complaints: Progressively increasing difficulty in conversation, bill in background noise situations, distance, w/ incr need for repetition and vision, frequent "bluffing". Pt denied otalgia, otorrhea, aural fullness, tinnitus; [...] --Pure tone audiometry using insert earphones demonstrates tbvo-eh-sultddvuyt severe level sensorineural type hearing loss, worse [...] up w/ referring physician. Report routed via Highfive inbox to Dr. Perez on 12/14/2018 -Re-evaluation [...] Audiogram can be also be viewed in [facility] SmartForms:Audiology: Audiometry. OAE and tympanometry results can be viewed in [facility] Scanned Documents. RIGHT EAR Hearing Sensitivity: 250-500HZ: WNL; 750-2000Hz:mild; 3000-8000Hz: moderate-severe SNHL Word Recognition Score (order by difficulty 10 word list): Excellent (90%) at slt amplified loudness (fair at conversational loudness) Tympanometry: Type A : Normal ME function. Otoacoustic Emissions results: 750-3000Hz: WNL; 8528-1177: reduced; 8000Hz: absent. LEFT EAR Hearing Sensitivity: 250-500HZ: WNL; 750-3000Hz: moderate; 6000-8000Hz: severe SNHL Word Recognition Score (order by difficulty 10 word list): Excellent (90%) at amplified loudness (poor at conversational loudness) Tympanometry: Type A : Normal ME function. Otoacoustic Emissions results: 750-1000Hz: absent; 8399-4673: reduced; 6000-8000Hz: absent. William Hinson. Beach Attendant 12/14/2018 3:30 PM Ezra Gonzalez : 1935 [...] during this visit: Audiometry Letter Text Normal [facility] OBSOLETEon 12-14-2018 OBSOLETE Refill ([facility]) EZRA GONZALEZ ([id number]) 1935 F Date Time Provider Department 12/14/18 JO PEREZ [facility] During your visit today, we recorded the following information about you: Robert Diaz CMA 12/16/2018 1:00 PM Signed Patient called requesting the following refill. Pending Prescriptions Disp Refills RANITIDINE 150 MG TABLET 90 tablet 0 Sig: TAKE ONE TABLET BY MOUTH EVERY DAY SHAHEEN: Yes Last refill: 09/16/2018 Patient last appointment: 10/20/2018 Patient next appointment: 04/02/2019 Patient Phone numbers: [phone] (home) Request is for script(s) to be [...] Myalgias Date Reviewed: 11/27/2018 Reviewed by: Vika CastroNew Lifec[facility] Hospit[facility]se Torres - Fully Assessed Reason for Visit: [...] stent placement- 2006 [Z95*INVALID FOR* Atherosclerosis of [place] coronary artery of na*INVALID FOR* Asymptomatic cholelithiasis [...] by JO PEREZ on 12/16/18 [facility] PROGRESSon 12-14-2018 PROGRESS HNO ID: [id number] Author: Anoop Crsiostomo) JAZMYN Collazo Service: ? Author Type: Beach Attendant Type: Progress Notes Filed: 12/14/2018 4:44 PM Note Text: [facility] AUDIOLOGIC EVALUATION REPORT 12/14/2018 Page 1 of 3 Patient: Ezra Gonzalez : 1935 Referred by: Jo Perez (PCP: Yazmin) Referred for: Evaluation of suspected change in hearing, tinnitus, or balance. Referral documented: In an order in [facility]: OTHER ORDERS: : CONSULT TO AUDIOLOGY FOR DIAGNOSTIC TESTING [9003] (Order [id number]) Patient's major complaints: Progressively increasing difficulty in conversation, bill in background noise situations, distance, w/ incr need for repetition and vision, frequent "bluffing". Pt denied otalgia, otorrhea, aural fullness, tinnitus; [...] --Pure tone audiometry using insert earphones demonstrates buun-nd-pguayjdwrf severe level sensorineural type hearing loss, worse [...] up w/ referring physician. Report routed via Highfive inbox to Dr. Perez on 12/14/2018 -Re-evaluation [...] Audiogram can be also be viewed in [facility] SmartForms:Audiology: Audiometry. OAE and tympanometry results can be viewed in [facility] Scanned Documents. RIGHT EAR Hearing Sensitivity: 250-500HZ: WNL; 750-2000Hz:mild; 3000-8000Hz: moderate-severe SNHL Word Recognition Score (order by difficulty 10 word list): Excellent (90%) at slt amplified loudness (fair at conversational loudness) Tympanometry: Type A : Normal ME function. Otoacoustic Emissions results: 750-3000Hz: WNL; 6558-7432: reduced; 8000Hz: absent. LEFT EAR Hearing Sensitivity: 250-500HZ: WNL; 750-3000Hz: moderate; 6000-8000Hz: severe SNHL Word Recognition Score (order by difficulty 10 word list): Excellent (90%) at amplified loudness (poor at conversational loudness) Tympanometry: Type A : Normal ME function. Otoacoustic Emissions results: 750-1000Hz: absent; 8110-6988: reduced; 6000-8000Hz: absent. William Hinson. Beach Attendant 12/14/2018 3:30 PM Ezra Gonzalez : 1935 Page 3 of 3 GARCÍA Abbreviation Definition Degree of hearing sensitivity dB range WNL within normal limits WNL 0 - 20 SNHL sensorineural hearing loss Mild 20-40 CHL conductive hearing loss Moderate 40-55 MHL mixed hearing loss Moderately-Severe 55-70 ME middle ear Severe 70-90 OAE Distortion Product Otoacoustic Emissions Profound 90 + TM tympanic membrane Normal [facility] CNOVon 11-27-2018 CNOV Office Visit (AGCARDHWW) EZRA GONZALEZ ([id number]) 1935 F Date Time Provider Department 8/30/19 11:00 AM RICKEY CHAVARRIA AGCARDHWW During your visit today, we recorded the following information about you: Pulse Respiration Blood pressure Weight 66/minute 18/minute 124/70 80.7 kg Height 1.575 m Vika MYRIAM Torres 11/27/2018 11:00 AM Signed Patient has no cardiac complaints today. Vika Brian Chavarria MD 11/27/2018 11:24 AM Signed PRIMARY CARE PHYSICIAN: Jo Perez MD [address] [facility] [address] [place] [address] HISTORY OF PRESENT ILLNESS: Ms. Gonzalez is [...] again. 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 Ezra [...] 124/70 Pulse 66 Resp 18 Ht 5' 2" (1.58m) Wt 178 lb (80.7kg) SpO2 98% [...] of the time was spent in direct, lyve-ig-ruxz, contact with the patient for management and counseling. 1. Essential hypertension - ICD9: 401.9, ICD10: I10 (primary diagnosis) 2. Obesity, Class I, BMI 30-34.9 - ICD9: 278.00, ICD10: E66.9 3. Mixed hyperlipidemia - ICD9: 272.2, ICD10: E78.2 4. Paroxysmal atrial fibrillation (HCC) - ICD9: 427.31, ICD10: I48.0 5. Chronic anticoagulation - ICD9: V58.61, ICD10: Z79.01 Rickey Chavarria M.D. [facility] Referring Provider: SELF [[id number]] Allergies As of Date: 11/27/2018 Noted Allergy Reaction CODEINE 03/20/2015 16 - Unknown CRESTOR (ROSUVASTATIN) 03/20/2015 14 - Other: See Comments Comments: Myalgias DEMEROL (MEPERIDINE) 03/20/2015 8 - GI Upset LATEX 03/20/2015 2 - Rash LIPITOR (ATORVASTATIN) 03/20/2015 14 - Other: See Comments Comments: Myalgias Date Reviewed: 11/27/2018 Reviewed by: Vika CastroNew [facility]ec[facility] Hospit[facility]se Torres - Fully Assessed Reason for Visit: CARD Follow Up Annual [1232] Primary Visit Diagnosis:Essential hypertension [I10] Other Visit Diagnoses:Obesity, Class I, BMI 30-34.9 [E66.9] Mixed hyperlipidemia [E78.2] Paroxysmal atrial fibrillation (HCC) [I48.0] Chronic anticoagulation [Z79.01] Order(s):ECG B/O W INTERP (MED OFFICE) [ECG06] Order #: [id number] Prescriptions as of 11/27/2018 Sig: SIMVASTATIN 20 [...] stent placement- 2006 [Z95*INVALID FOR* Atherosclerosis of [place] coronary artery of na*INVALID FOR* Asymptomatic cholelithiasis [...] has no cardiac complaints today. Vika Torres [facility] Disposition: Return in about 1 year (around 11/28/2019). Follow-up and Disposition History Recorded Letter Text Encounter Status:Closed by RICKEY CHAVARRIA MD on 11/27/18 [facility] PROGRESSon 11-27-2018 PROGRESS HNO ID: [id number] Author: Rickey Chavarria Service: ? Author Type: Physician Type: Progress Notes Filed: 11/27/2018 11:24 AM Note Text: PRIMARY CARE PHYSICIAN: Jo Perez MD [address] [facility] [address] [place] [address] HISTORY OF PRESENT ILLNESS: Ms. Gonzalez is [...] again. 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 Ezra [...] 124/70 Pulse 66 Resp 18 Ht 5' 2" (1.58m) Wt 178 lb (80.7kg) SpO2 98% [...] of the time was spent in direct, otqi-va-fgas, contact with the patient for management and counseling. 1. Essential hypertension - ICD9: 401.9, ICD10: I10 (primary diagnosis) 2. Obesity, Class I, BMI 30-34.9 - ICD9: 278.00, ICD10: E66.9 3. Mixed hyperlipidemia - ICD9: 272.2, ICD10: E78.2 4. Paroxysmal atrial fibrillation (HCC) - ICD9: 427.31, ICD10: I48.0 5. Chronic anticoagulation - ICD9: V58.61, ICD10: Z79.01 Rickey Chavarria M.D. [facility] Normal [facility] BONE DENSITY STUDY BY XRAY 7 7080on 07-15-2017 BONE DENSITY STUDY BY XRAY [id number] [facility] APPROVED BY: Kemar Adams MD EXAMINATION: BONE MINERAL DENSITOMETRY (DEXA SCAN) EXAM DATE: 07/15/2017 09:43 CLINICAL INDICATION: 82-year-old postmenopausal female , follow-up osteoporosis screening. COMPARISON: DEXA scan 10/06/2013. DXA VPIsystemsW-Phase Holographic Imaging v.13.4 examination is performed on the lumbar [...] is a trademark of the [employer]'s [facility], a WHO Collaborating [place]. This applies to men over 50 and [...] high risk for accelerated bone loss). Normal [facility] MAMMOGRAM SCREENING WITH CAD IF PERFORMEDon 06-27-2017 MAMMOGRAM SCREENING WITH CAD IF PERFORMED Performed at [facility] APPROVED BY: Lucas Garrido MD #[id number] - MAMMOGRAM SCREENING WITH CAD IF PERFORMEDBILATERAL DIGITAL SCREENING MAMMOGRAM WITH CAD WITH MEDIOLATERAL OBLIQUE CRANIOCAUDAL: 06/27/2017CLINICAL: Routine screening mammogram. Patient reports no breast problems. Comparison is made to exams dated: 07/22/2016 mammogram - [facility], 06/26/2016 mammogram, 06/09/2015 mammogram, and 04/01/2014 mammogram - [facility]. There are scattered fibroglandular elements in [...] notified of the results. Lucas cortesg/penrad:06/27/2017 11:38:04 Historic Site Administrator: Loan Summers)(M), [facility] Normal Birad 1 or 2 Mammogram BI-RADS: 1 Negative Normal [facility] Otheron 02-03-2015 CONVERTED CLINICAL HISTORY OPERATIVE PROCEDURE: Colonoscopy CLINICAL INFORMATION: Screening [facility] CONVERTED ELECTRONIC SIGNATURE MO PATRICK M.D., PATHOLOGIST (Electronic signature on file) Final Signed Out: 02/03/2015 12:44 [facility] CONVERTED FINAL DIAGNOSIS FINAL DIAGNOSI S: A) COLON, ASCENDING, BIOPSIES - FRAGMENTS OF TUBULAR ADENOMA. B) COLON, RANDOM BIOPSIES - NO PATHOLOGIC ABNORMALITIES. [facility] CONVERTED GROSS DESCRIPTION GROSS DESCRIPTION: A) [...] totally submitted in cassette B x 3. SMS:[facility] CONVERTED ORDERING PROVIDER Ordering Provider: SHI LESTER [facility] Otheron 04-19-2010 CONVERTED ELECTRONIC SIGNATURE RAVINDER HAN M.D., PATHOLOGIST (Electronic signature on file) Final Signed Out: 04/19/2010 14:33 [facility] CONVERTED FINAL DIAGNOSIS FINAL DIAGNOSI S: RIGHT SHOULDER, EXCISION - BONE AND ATTACHED CARTILAGE WITH DEGENERATIVE CHANGES. SYNOVIUM WITH NONSPECIFIC REACTIVE CHANGES AND FOCAL MILD CHRONIC INFLAMMATION. SPECIMEN: SHOULDER [facility] CONVERTED GROSS DESCRIPTION GROSS DESCRIPTION: Rt shoulder tissue The container is labeled right shoulder tissue. Received are portions of pink-montague soft tissue and red-montague bone measuring 3 x 3 x 1 cm in aggregate. Sample of soft tissue is submitted in cassette 1, sample of bone is submitted in cassette 2 following decal. SMS/lrs MICROSCOPIC DESCRIPTION: Slides reviewed. 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 SPECIMEN: FEMORAL HEAD [facility] CONVERTED GROSS DESCRIPTION GROSS DESCRIPTION: Left [...] MICROSCOPIC DESCRIPTION: Slides reviewed. SDS/gpl [facility] CONVERTED ORDERING PROVIDER Ordering Provider: CLOTILDE DOSS [facility] Thyroidon 08-02-2009 TSH Qn KVNG TYLER M.D., PATHOLOGIST (Electronic signature on file) Final Signed Out: 08/02/2009 14:47 [facility] Cardiacon 05-11-2001 Cholesterol [Mass/Vol] Ordering Provider : SAE FLANAGAN [facility] Otheron 05-11-2001 CONVERTED ELECTRONIC SIGNATURE MICHAEL HAWTHORNE M.D., PATHOLOGIST (Electronic signature on file) Final Signed Out: 05/11/2001 11:39 [facility] CONVERTED FINAL DIAGNOSIS TISSUE, REMOVE D AT RELEASE OF RIGHT RING FINGER - FIBROCOLLAGENOUS TISSUE WITH FOCAL FIBROBLASTIC REACTION AND FOCAL MIXOID CHANGE. ATTACHED SMALL AMOUNT OF TISSUE CONSISTENT WITH SYNOVIUM. [facility] Vital Signs Date Time Vital Sign Value Performing Clinician Facility 09-13-2024 14:00-0400 Body height 160.[address] Alexandra Hagen MD Work Phone: [facility] 09-13-2024 14:00-0400 Body mass index (BMI) [Ratio] 30.7 kg/m2 Dr. Alexandra Hagen MD Work Phone: [facility] 09-13-2024 14:00-0400 Body temperature 92.6 [degF] Dr. Alexandra Hagen MD Work Phone: 6(546)[phone] [place] [address] 09-13-2024 14:00-0400 Body weight 78.[address] Alexandra Hagen MD Work Phone: [facility] 09-13-2024 14:00-0400 Diastolic blood pressure 79 mm[Hg] Dr. Alexandra Hagen MD Work Phone: [facility] 09-13-2024 14:00-0400 Heart rate 83 /min Dr. Alexandra Hagen MD Work Phone: 2(701)[phone] [place] [address] 09-13-2024 14:00-0400 Respiratory rate 17 /min Dr. Alexandra Hagen MD Work Phone: [facility] 09-13-2024 14:00-0400 SaO2% (BldA) [Mass fraction] 97 % Dr. Alexandra Hagen MD Work Phone: [facility] 09-13-2024 14:00-0400 Systolic blood pressure 126 mm[Hg] Dr. Alexandra Hagen MD Work Phone: [facility] 09-11-2024 13:55-0400 Body mass index (BMI) [Ratio] 30.3 kg/m2 Dr. Alexandra Hagen MD Work Phone: [facility] 09-11-2024 09:09-0400 Body temperature 97.8 [degF] Dr. Alexandra Hagen MD Work Phone: 7(559)[phone] [place] [address] 09-11-2024 09:09-0400 Diastolic blood pressure 85 mm[Hg] Dr. Alexandra Hagen MD Work Phone: 0(913)[phone] [place] [address] 09-11-2024 09:09-0400 Heart rate 84 /min Dr. Alexandra Hagen MD Work Phone: 5(676)554-141519 [place] [address] 09-11-2024 09:09-0400 Respiratory rate 18 /min Dr. Alexandra Hagen MD Work Phone: 7(827)960-171319 [place] [address] 09-11-2024 09:09-0400 SaO2% (BldA) [Mass fraction] 98 % Dr. Alexandra Hagen MD Work Phone: 5(980)[phone] [place] [address] 09-11-2024 09:09-0400 Systolic blood pressure 174 mm[Hg] Dr. Alexandra Hagen MD Work Phone: 7(697)387-219719 [place] [address] 09-10-2024 17:17-0400 Body height 160.[address] Alexandra Hagen MD Work Phone: 3(593)[phone] [address] [place], [place] [id number] 09-10-2024 17:17-0400 Body weight 77.[address] Alexandra Hagen MD Work Phone: 0(950)237-712119 [place] [address] 09-10-2024 16:30-0400 Diastolic blood pressure 73 mm[Hg] Dr. Alexandra Hagen MD Work Phone: 6(223)304-854619 [place] [address] 09-10-2024 16:30-0400 Heart rate 79 /min Dr. Alexandra Hagen MD Work Phone: 1(785)791-939419 [place] [address] 09-10-2024 16:30-0400 Respiratory rate 20 /min Dr. Alexandra Hagen MD Work Phone: 8(067)662-451919 [place] [address] 09-10-2024 16:30-0400 SaO2% (BldA) [Mass fraction] 93 % Dr. Alexandra Hagen MD Work Phone: 2(063)272-076719 [place] [address] 09-10-2024 16:30-0400 Systolic blood pressure 118 mm[Hg] Dr. Alexandra Hagen MD Work Phone: 3(359)312-670469 [address] 09-10-2024 16:07-0400 Body temperature 98.3 [degF] Dr. Alexandra Hagen MD Work Phone: 1(301)379-439083 [place] [address] 09-10-2024 14:19-0400 Body height 160.[address] Alexandra Hagen MD Work Phone: 7(965)389-200619 [place] [address] 09-10-2024 14:19-0400 Body mass index (BMI) [Ratio] 26.5 kg/m2 Dr. Alexandra Hagen MD Work Phone: 4(677)139-171619 [place] [address] 09-10-2024 14:19-0400 Body weight 68.[address] Alexandra Hagen MD Work Phone: 9(955)570-583519 [place] [address] 09-08-2024 15:30-0400 Heart rate 64 /min Dr. Alexandra Hagen MD Work Phone: 1(135)755-711419 [place] [address] 09-08-2024 15:30-0400 Respiratory rate 23 /min Dr. Alexandra Hagen MD Work Phone: 2(140)568-658519 [place] [address] 09-08-2024 15:30-0400 SaO2% (BldA) [Mass fraction] 97 % Dr. Alexandra Hagen MD Work Phone: 4(759)213-226019 [place] [address] 09-08-2024 12:22-0400 Body height 160.[address] Alexandra Hagen MD Work Phone: 3(622)088-982919 [place] [address] 09-08-2024 12:22-0400 Body mass index (BMI) [Ratio] 33.5 kg/m2 Dr. Alexandra Hagen MD Work Phone: 0(870)310-405683 [place] [address] 09-08-2024 12:22-0400 Body temperature 98 [degF] Dr. Alexandra Hagen MD Work Phone: 4(012)715-942619 [place] [address] 09-08-2024 12:22-0400 Body weight 85.[address] Alexandra Hagen MD Work Phone: 3(144)518-956319 [place] [address] 09-08-2024 12:22-0400 Diastolic blood pressure 70 mm[Hg] Dr. Alexandra Hagen MD Work Phone: [facility] 09-08-2024 12:22-0400 Systolic blood pressure 131 mm[Hg] Dr. Alexandra Hagen MD Work Phone: 0(640)628-062983 [place] [address] 07-01-2024 10:38-0400 Body height 160.[address] Alexandra Hagen MD Work Phone: 0(603)403-752919 [place] [address] 07-01-2024 10:38-0400 Body mass index (BMI) [Ratio] 30.8 kg/m2 Dr. Alexandra Hagen MD Work Phone: 6(751)992-767619 [place] [address] 07-01-2024 10:38-0400 Body weight 78.[address] Alexandra Hagen MD Work Phone: 6(865)733-536019 [place] [address] 07-01-2024 10:38-0400 Diastolic blood pressure 85 mm[Hg] Dr. Alexandra Hagen MD Work Phone: 4(487)621-610019 [place] [address] 07-01-2024 10:38-0400 Heart rate 60 /min Dr. Alexandra Hagen MD Work Phone: 8(277)445-233919 [place] [address] 07-01-2024 10:38-0400 Respiratory rate 16 /min Dr. Alexandra Hagen MD Work Phone: 8(632)828-899819 [place] [address] 07-01-2024 10:38-0400 Systolic blood pressure 184 mm[Hg] Dr. Alexandra Hagen MD Work Phone: 4(396)655-034419 [place] [address] 05-10-2024 14:35-0500 Body height 160.[address] Alexandra Hagen MD Work Phone: 8(976)270-246519 [place] [address] 05-10-2024 14:35-0500 Body mass index (BMI) [Ratio] 30.9 kg/m2 Dr. Alexandra Hagen MD Work Phone: 5(892)935-080819 [place] [address] 05-10-2024 14:35-0500 Body temperature 97.8 [degF] Dr. Alexandra Hagen MD Work Phone: 2(101)382-293319 [place] [address] 05-10-2024 14:35-0500 Body weight 79.[address] Alexandra Hagen MD Work Phone: [facility] 05-10-2024 14:35-0500 Diastolic blood pressure 86 mm[Hg] Dr. Alexandra Hagen MD Work Phone: [facility] 05-10-2024 14:35-0500 Heart rate 75 /min Dr. Alexandra Hagen MD Work Phone: [facility] 05-10-2024 14:35-0500 Respiratory rate 16 /min Dr. Alexandra Hagen MD Work Phone: [facility] 05-10-2024 14:35-0500 SaO2% (BldA) [Mass fraction] 94 % Dr. Alexandra Hagen MD Work Phone: [facility] 05-10-2024 14:35-0500 Systolic blood pressure 140 mm[Hg] Dr. Alexandra Hagen MD Work Phone: [facility] 06-20-2023 11:10-0400 Diastolic blood pressure 92 mm[Hg] Sae Conde MD Work Phone: [facility] 06-20-2023 11:10-0400 Heart rate 88 /min Sae Conde MD Work Phone: [facility] 06-20-2023 11:10-0400 Systolic blood pressure 173 mm[Hg] Sae Conde MD Work Phone: [facility] 06-20-2023 05:34-0400 Body temperature 97.39 [degF] Sae Conde MD Work Phone: [facility] 06-20-2023 05:34-0400 Respiratory rate 20 /min Sae Conde MD Work Phone: [facility] [employer] 06-20-2023 05:34-0400 SaO2% (BldA) [Mass fraction] 95 % Sae Conde MD Work Phone: [facility] [employer] 06-17-2023 18:30-0400 Body height 160 cm Sae Conde MD Work Phone: [facility] 06-17-2023 18:30-0400 Body mass index (BMI) [Ratio] 30.83 kg/m2 Sae Conde MD Work Phone: [facility] 06-17-2023 18:30-0400 Body weight 78.93 kg Sae Conde MD Work Phone: [facility] 06-16-2023 11:02-0400 Body temperature 96.4 [degF] Dr. Rosemary Doran Work Phone: [facility] 06-16-2023 11:02-0400 Diastolic blood pressure 84 mm[Hg] Dr. Rosemary Doran Work Phone: [facility] 06-16-2023 11:02-0400 Heart rate 72 /min Dr. Rosemary Doran Work Phone: [facility] 06-16-2023 11:02-0400 Respiratory rate 16 /min Dr. Rosemary Doran Work Phone: [facility] 06-16-2023 11:02-0400 SaO2% (BldA) [Mass fraction] 96 % Dr. Rosemary Doran Work Phone: [facility] 06-16-2023 11:02-0400 Systolic blood pressure 157 mm[Hg] Dr. Rosemary Doran Work Phone: [facility] 06-16-2023 08:33-0400 Body height 160.[address] Rosemary Doran Work Phone: [facility] 06-16-2023 08:33-0400 Body mass index (BMI) [Ratio] 33.1 kg/m2 Dr. Rosemary Doran Work Phone: [facility] 06-16-2023 08:33-0400 Body weight 84.[address] Rosemary Doran Work Phone: [facility] 05-19-2023 11:21-0500 Body height 160.[address] Rosemary Doran Work Phone: [facility] 05-19-2023 11:21-0500 Body mass index (BMI) [Ratio] 31.6 kg/m2 Dr. Rosemary Doran Work Phone: [facility] 05-19-2023 11:21-0500 Body temperature 97.8 [degF] Dr. Rosemary Doran Work Phone: [facility] 05-19-2023 11:21-0500 Body weight 81.[address] Rosemary Doran Work Phone: [facility] 05-19-2023 11:21-0500 Diastolic blood pressure 90 mm[Hg] Dr. Rosemary Doran Work Phone: [facility] 05-19-2023 11:21-0500 Heart rate 88 /min Dr. Rosemary Doran Work Phone: [facility] 05-19-2023 11:21-0500 Respiratory rate 17 /min Dr. Rosemary Doran Work Phone: [facility] 05-19-2023 11:21-0500 SaO2% (BldA) [Mass fraction] 98 % Dr. Rosemary Doran Work Phone: [facility] 05-19-2023 11:21-0500 Systolic blood pressure 152 mm[Hg] Dr. Rosemary Doran Work Phone: [facility] 05-15-2023 09:01-0500 Body mass index (BMI) [Ratio] 31.6 kg/m2 Dr. Rosemary Doran Work Phone: [facility] 05-15-2023 09:01-0500 Body weight 81.[address] Rosemary Doran Work Phone: [facility] 05-15-2023 09:01-0500 Diastolic blood pressure 85 mm[Hg] Dr. Rosemary Doran Work Phone: [facility] 05-15-2023 09:01-0500 Heart rate 78 /min Dr. Rosemary Doran Work Phone: [facility] 05-15-2023 09:01-0500 Respiratory rate 18 /min Dr. Rosemary Doran Work Phone: [facility] 05-15-2023 09:01-0500 Systolic blood pressure 156 mm[Hg] Dr. Rosemary Doran Work Phone: [facility] 01-20-2023 08:05-0400 Body height 160.[address] Rosemary Doran Work Phone: [facility] 01-20-2023 08:05-0400 Body mass index (BMI) [Ratio] 32 kg/m2 Dr. Rosemary Doran Work Phone: [facility] 01-20-2023 08:05-0400 Body temperature 98 [degF] Dr. Rosemary Doran Work Phone: [facility] 01-20-2023 08:05-0400 Body weight 82.[address] Rosemary Doran Work Phone: [facility] 01-20-2023 08:05-0400 Diastolic blood pressure 90 mm[Hg] Dr. Rosemary Doran Work Phone: [facility] 01-20-2023 08:05-0400 Heart rate 88 /min Dr. Rosemary Doran Work Phone: [facility] 01-20-2023 08:05-0400 Respiratory rate 17 /min Dr. Rosemary Doran Work Phone: [facility] 01-20-2023 08:05-0400 SaO2% (BldA) [Mass fraction] 97 % Dr. Rosemary Doran Work Phone: [facility] 01-20-2023 08:05-0400 Systolic blood pressure 140 mm[Hg] Dr. Rosemary Doran Work Phone: [facility] 12-28-2022 11:09-0400 Body temperature 97.8 [degF] Dr. Rosemary Doran Work Phone: [facility] 12-28-2022 11:09-0400 Diastolic blood pressure 79 mm[Hg] Dr. Rosemary Doran Work Phone: [facility] 12-28-2022 11:09-0400 Heart rate 84 /min Dr. Rosemary Doran Work Phone: [facility] 12-28-2022 11:09-0400 Respiratory rate 16 /min Dr. Rosemary Doran Work Phone: [facility] 12-28-2022 11:09-0400 SaO2% (BldA) [Mass fraction] 96 % Dr. Rosemary Doran Work Phone: [facility] 12-28-2022 11:09-0400 Systolic blood pressure 169 mm[Hg] Dr. Rosemary Doran Work Phone: [facility] 12-27-2022 19:16-0400 Body height 160.[address] Rosemary Doran Work Phone: [facility] 12-27-2022 19:16-0400 Body mass index (BMI) [Ratio] 32.1 kg/m2 Dr. Rosemary Doran Work Phone: [facility] 12-27-2022 19:16-0400 Body weight 82.[address] Rosemary Doran Work Phone: [facility] 12-05-2022 09:25-0400 Body temperature 98.2 [degF] Dr. Rosemary Doran Work Phone: [facility] 12-05-2022 09:25-0400 Body weight 82.[address] Rosemary Doran Work Phone: [facility] 12-05-2022 09:25-0400 Diastolic blood pressure 85 mm[Hg] Dr. Rosemary Doran Work Phone: [facility] 12-05-2022 09:25-0400 Heart rate 90 /min Dr. Rosemary Doran Work Phone: [facility] 12-05-2022 09:25-0400 SaO2% (BldA) [Mass fraction] 95 % Dr. Rosemary Doran Work Phone: [facility] 12-05-2022 09:25-0400 Systolic blood pressure 145 mm[Hg] Dr. Rosemary Doran Work Phone: [facility] 11-18-2022 11:24-0400 Diastolic blood pressure 82 mm[Hg] Dr. Rosemary Doran Work Phone: [facility] 11-18-2022 11:24-0400 Heart rate 76 /min Dr. Rosemary Doran Work Phone: [facility] 11-18-2022 11:24-0400 Respiratory rate 15 /min Dr. Rosemary Doran Work Phone: [facility] 11-18-2022 11:24-0400 SaO2% (BldA) [Mass fraction] 98 % Dr. Rosemary Doran Work Phone: [facility] 11-18-2022 11:24-0400 Systolic blood pressure 137 mm[Hg] Dr. Rosemary Doran Work Phone: [facility] 11-18-2022 07:55-0400 Body height 160.[address] Rosemary Doran Work Phone: [facility] 11-18-2022 07:55-0400 Body mass index (BMI) [Ratio] 32.9 kg/m2 Dr. Rosemary Doran Work Phone: [facility] 11-18-2022 07:55-0400 Body weight 84.[address] Rosemary Doran Work Phone: [facility] 11-18-2022 07:50-0400 Body temperature 97.8 [degF] Dr. Rosemary Doran Work Phone: [facility] 11-15-2022 10:11-0400 Body mass index (BMI) [Ratio] 32.2 kg/m2 Dr. Rosemary Doran Work Phone: [facility] 11-15-2022 08:55-0400 Body temperature 97.7 [degF] Dr. Rosemary Doran Work Phone: [facility] 11-15-2022 08:55-0400 Diastolic blood pressure 78 mm[Hg] Dr. Rosemary Doran Work Phone: [facility] 11-15-2022 08:55-0400 Heart rate 68 /min Dr. Rosemary Doran Work Phone: [facility] 11-15-2022 08:55-0400 Respiratory rate 16 /min Dr. Rosemary Doran Work Phone: [facility] 11-15-2022 08:55-0400 SaO2% (BldA) [Mass fraction] 96 % Dr. Rosemary Doran Work Phone: [facility] 11-15-2022 08:55-0400 Systolic blood pressure 136 mm[Hg] Dr. Rosemary Doran Work Phone: [facility] 11-14-2022 13:12-0400 Body weight 82.[address] Rosemary Doran Work Phone: [facility] 11-14-2022 12:30-0400 Body temperature 97.6 [degF] Dr. Rosemary Doran Work Phone: [facility] 11-14-2022 12:30-0400 Diastolic blood pressure 101 mm[Hg] Dr. Rosemary Doran Work Phone: [facility] 11-14-2022 12:30-0400 Heart rate 64 /min Dr. Rosemary Doran Work Phone: [facility] 11-14-2022 12:30-0400 Respiratory rate 14 /min Dr. Rosemary Doran Work Phone: [facility] 11-14-2022 12:30-0400 SaO2% (BldA) [Mass fraction] 98 % Dr. Rosemary Doran Work Phone: [facility] 11-14-2022 12:30-0400 Systolic blood pressure 164 mm[Hg] Dr. Rosemary Doran Work Phone: [facility] 11-14-2022 11:02-0400 Body height 160.[address] Rosemary Doran Work Phone: [facility] 11-14-2022 11:02-0400 Body mass index (BMI) [Ratio] 33.7 kg/m2 Dr. Rosemary Doran Work Phone: [facility] 11-14-2022 11:02-0400 Body weight 86.[address] Rosemary Doran Work Phone: [facility] 10-15-2022 09:24-0400 Body height 160.[address] Rosemary Doran Work Phone: [facility] 10-15-2022 09:24-0400 Body mass index (BMI) [Ratio] 30.8 kg/m2 Dr. Rosemary Doran Work Phone: [facility] 10-15-2022 09:24-0400 Body weight 78.[address] Rosemary Doran Work Phone: [facility] 10-15-2022 09:24-0400 Diastolic blood pressure 87 mm[Hg] Dr. Rosemary Doran Work Phone: [facility] 10-15-2022 09:24-0400 Heart rate 73 /min Dr. Rosemary Doran Work Phone: [facility] 10-15-2022 09:24-0400 Respiratory rate 18 /min Dr. Rosemary Doran Work Phone: [facility] 10-15-2022 09:24-0400 Systolic blood pressure 149 mm[Hg] Dr. Rosemary Doran Work Phone: [facility] 09-18-2022 19:36-0400 Diastolic blood pressure 72 mm[Hg] Dr. Rosemary Doran Work Phone: [facility] 09-18-2022 19:36-0400 Systolic blood pressure 140 mm[Hg] Dr. Rosemary Doran Work Phone: [facility] 09-18-2022 08:05-0400 Body height 160.[address] Rosemary Doran Work Phone: [facility] 09-18-2022 08:05-0400 Body mass index (BMI) [Ratio] 31.8 kg/m2 Dr. Rosemary Doran Work Phone: [facility] 09-18-2022 08:05-0400 Body temperature 97.8 [degF] Dr. Rosemary Doran Work Phone: [facility] 09-18-2022 08:05-0400 Body weight 81.[address] Rosemary Doran Work Phone: [facility] 09-18-2022 08:05-0400 Heart rate 111 /min Dr. Rosemary Doran Work Phone: [facility] 06-21-2023 08:05-0400 Respiratory rate 17 /min Dr. Rosemary Doran Work Phone: [facility] 09-18-2022 08:05-0400 SaO2% (BldA) [Mass fraction] 99 % Dr. Rosemary Doran Work Phone: [facility] 09-08-2022 16:03-0400 Diastolic blood pressure 84 mm[Hg] Dr. Rosemary Doran Work Phone: [facility] 09-08-2022 16:03-0400 Heart rate 90 /min Dr. Rosemary Doran Work Phone: [facility] 09-08-2022 16:03-0400 Respiratory rate 20 /min Dr. Rosemary Doran Work Phone: [facility] 09-08-2022 16:03-0400 SaO2% (BldA) [Mass fraction] 97 % Dr. Rosemary Doran Work Phone: [facility] 09-08-2022 16:03-0400 Systolic blood pressure 157 mm[Hg] Dr. Rosemary Doran Work Phone: [facility] 09-08-2022 15:32-0400 Body mass index (BMI) [Ratio] 33.2 kg/m2 Dr. Rosemary Doran Work Phone: [facility] 09-08-2022 15:32-0400 Body weight [address] Rosemary Doran Work Phone: [facility] 09-08-2022 14:26-0400 Body temperature 96.8 [degF] Dr. Rosemary Doran Work Phone: [facility] 04-16-2022 14:26-0500 Body height 160.[address] Rosemary Doran Work Phone: [facility] 04-16-2022 14:26-0500 Body mass index (BMI) [Ratio] 30.6 kg/m2 Dr. Rosemary Doran Work Phone: [facility] 04-16-2022 14:26-0500 Body weight 78.[address] Rosemary Doran Work Phone: [facility] 04-16-2022 14:26-0500 Diastolic blood pressure 60 mm[Hg] Dr. Rosemary Doran Work Phone: [facility] 04-16-2022 14:26-0500 Heart rate 88 /min Dr. Rosemary Doran Work Phone: [facility] 04-16-2022 14:26-0500 Respiratory rate 18 /min Dr. Rosemary Doran Work Phone: [facility] 04-16-2022 14:26-0500 Systolic blood pressure 89 mm[Hg] Dr. Rosemary Doran Work Phone: [facility] 02-11-2022 02:02-0500 Diastolic blood pressure 82 mm[Hg] Dr. Rosemary Doran Work Phone: [facility] 02-11-2022 02:02-0500 Heart rate 74 /min Dr. Rosemary Doran Work Phone: [facility] 02-11-2022 02:02-0500 Respiratory rate 16 /min Dr. Rosemary Doran Work Phone: [facility] 02-11-2022 02:02-0500 SaO2% (BldA) [Mass fraction] 96 % Dr. Rosemary Doran Work Phone: [facility] 02-11-2022 02:02-0500 Systolic blood pressure 106 mm[Hg] Dr. Rosemary Doran Work Phone: [facility] 02-11-2022 00:07-0500 Body height 160.[address] Rosemary Doran Work Phone: [facility] Work Phone: 02-11-2022 00:07-0500 Body mass index (BMI) [Ratio] 33.1 kg/m2 Dr. Rosemary Doran Work Phone: [facility] 02-11-2022 00:07-0500 Body temperature 98.4 [degF] Dr. Rosemary Doran Work Phone: [facility] 02-11-2022 00:07-0500 Body weight 84.[address] Rosemary Doran Work Phone: [facility] 10-18-2021 10:26-0400 Body mass index (BMI) [Ratio] 33.1 kg/m2 Dr. Rosemary Doran Work Phone: [facility] Work Phone: 10-18-2021 10:26-0400 Body weight 84.[address] Rosemary Doran Work Phone: [facility] Work Phone: 10-18-2021 10:26-0400 Diastolic blood pressure 63 mm[Hg] Dr. Rosemary Doran Work Phone: [facility] Work Phone: 10-18-2021 10:26-0400 Heart rate 87 /min Dr. Rosemary Doran Work Phone: [facility] Work Phone: 10-18-2021 10:26-0400 Respiratory rate 20 /min Dr. Rosemary Doran Work Phone: [facility] Work Phone: 10-18-2021 10:26-0400 SaO2% (BldA) [Mass fraction] 96 % Dr. Rosemary Doran Work Phone: [facility] Work Phone: 10-18-2021 10:26-0400 Systolic blood pressure 101 mm[Hg] Dr. Rosemary Doran Work Phone: [facility] Work Phone: Encounters Encounter Date Encounter Type Care Provider Facility Start: 09-22-2024 ambulatory [facility] ity:[facility] Start: 09-17-2024 ambulatory [facility]: [facility] Start: 09-13-2024 End: 09-13-[address] Anant Juarez MD -[facility] Work Phone: Start: 09-13-2024 End: 09-13-[address] Alexandra Hagen MD Work Phone: [facility] Work Phone: Start: 09-13-2024 End: 09-13-2024 ambulatory [facility] Start: 09-11-2024 Non-patient / Non-visit Dr. Richardson WHEELER [facility] Work Phone: Start: 09-10-2024 End: 09-11-2024 ambulatory [facility] Start: 09-10-2024 End: 09-11-2024 Evaluation and management of inpatient Dr. Matthew Oro DO -[facility] Work Phone: Start: 09-10-2024 End: 09-11-[address] Alexandra Hagen MD Work Phone: [facility] Work Phone: Start: 09-08-2024 End: 09-08-2024 Emergency department patient visit Dr. Alexandra Hagen MD Work Phone: -Emergency Department Work Phone: Start: 08-18-2024 End: 08-18-[address] Alexandra Hagen MD Work Phone: [facility] Work Phone: Start: 08-18-2024 End: 08-18-2024 Departed Referred Cesar Cole MD -[facility] Work Phone: Start: 08-18-2024 Registered Referred Cesar Leonard [facility] Work Phone: Start: 08-18-2024 End: 08-18-2024 ambulatory Alexandra S Jolliff Facility:[facility] Start: 07-19-2024 End: 07-19-[address] Alexandra Hagen MD Work Phone: [facility] Work Phone: Start: 07-19-2024 End: 07-19-2024 Departed Referred Cesar LeonardOlympiamukul [facility] Work Phone: Start: 07-19-2024 End: 07-19-2024 ambulatory Cesar MARTINEZ Facility:[facility] Start: 07-01-2024 End: 07-01-[address] Cesar Cole MD -[facility] Work Phone: Start: 07-01-2024 End: 07-01-2024 ambulatory Alexandra S Jojesseiff Facility:[facility] Start: 06-16-2024 End: 06-16-[address] Alexandra Hagen MD Work Phone: [facility] Work Phone: Start: 06-16-2024 End: 06-16-[address] Kvng [facility] Work Phone: Start: 06-16-[address] Kvng Chang [facility] Work Phone: Start: 06-16-2024 End: 06-16-2024 ambulatory Alexandra S Jollnargis Facility:[facility] Start: 06-09-2024 End: 06-09-[address] Alexandra Hagen MD Work Phone: [facility] Work Phone: Start: 06-09-2024 End: 06-09-[address] [facility] Work Phone: Start: 06-09-2024 End: 06-09-2024 ambulatory Alexandra Hagen Facility:[facility] Start: 05-19-2024 End: 05-19-[address] Alexandra Hagen MD Work Phone: [facility] Work Phone: Start: 05-19-2024 End: 05-19-2024 Departed [address] [facility] Work Phone: Start: 05-19-2024 Registered Referred C[facility] Work Phone: Start: 05-19-2024 End: 05-19-2024 ambulatory Cesar MARTINEZ Facility:[facility] Start: 05-12-2024 ambulatory Alexandra Hagen Facility: [facility] Start: 05-12-2024 Registered Referred Anant [facility] Work Phone: Start: 05-10-2024 End: 05-10-[address] Anant Juarez MD -[facility] Work Phone: Start: 05-10-2024 End: 05-10-2024 ambulatory Anant Juarez Facility:[facility] Start: 05-05-2024 End: 05-05-[address] Alexandra Hagen MD Work Phone: [facility] Work Phone: Start: 05-05-2024 End: 05-05-2024 Departed Referred [facility] Work Phone: Start: 05-05-2024 Registered Referred C[facility] Work Phone: Start: 05-05-2024 End: 05-05-2024 ambulatory Walfordakanksha MARTINEZ Facility:[facility] Start: 04-28-2024 End: 04-28-[address] Alexandra Hagen MD Work Phone: [facility] Work Phone: Start: 04-28-2024 End: 04-28-[address] Kvng [facility] Work Phone: Start: 04-28-2024 End: 04-28-2024 ambulatory Alexandra Hagen Facility:[facility] Start: 04-14-2024 ambulatory Kvng MARTINEZ Facil ity:[facility] Start: 04-14-[address] Kvng [facility] Work Phone: Start: 04-09-2024 End: 04-09-[address] K[facility]ng [facility] Work Phone: Start: 04-09-2024 End: 04-09-2024 ambulatory Alexandra Hagen Facility:[facility] Start: 04-06-2024 End: 04-06-[address] K[facility]ng [facility] Work Phone: Start: 04-05-2024 End: 04-06-2024 ambulatory Alexandra Hagen Facility:[facility] Start: 04-05-[address] Kvng Rasheed [facility] Work Phone: Start: 03-29-2024 ambulatory Kvng MARTINEZ Facil ity:[facility] Start: 03-29-[address] Kvng [facility]heed [facility] Work Phone: Start: 03-26-2024 ambulatory Kvng MARTINEZ Facil ity:[facility] Start: 03-26-[address] Kvng [facility]heed [facility] Work Phone: Start: 03-25-2024 ambulatory Kvng MARTINEZ Facil ity:[facility] Start: 03-25-[address] Kvng [facility]heed [facility] Work Phone: Start: 03-19-2024 ambulatory Alexandra S Jolliff Facility: [facility] Start: 03-19-[address] Kvng [facility]heed [facility] Work Phone: Start: 03-17-2024 ambulatory Kvng Ochoa OLS Facil ity:[facility] Start: 03-17-[address] Kvng [facility]heed [facility] Work Phone: Start: 03-10-2024 ambulatory Kvng MARTINEZ Facil ity:[facility] Start: 03-10-[address] Kvng [facility]heed [facility] Work Phone: Start: 03-08-2024 ambulatory Alexandra S Jolliff Facility: [facility] Start: 03-08-[address] Kvng [facility]heed [facility] Work Phone: Start: 03-04-2024 ambulatory Alexandra S Jolliff Facility: [facility] Start: 03-04-[address] Kvng [facility]heed [facility] Work Phone: Start: 02-05-2024 End: 02-05-[address] Kvng [facility]heed [facility] Work Phone: Start: 02-05-2024 End: 02-05-2024 ambulatory Kvng MARTINEZ Facility:[facility] Start: 01-08-2024 End: 01-08-2024 ambulatory Kvng MARTINEZ Facility:[facility] Start: 12-26-2023 End: 12-26-2023 ambulatory Kvng MARTINEZ Facility:[facility] Start: 12-19-2023 End: 12-19-2023 ambulatory Kvng Ochoa OLS Facility:[facility] Start: 12-18-2023 End: 12-18-2023 ambulatory Kvng Ochoa OLS Facility:[facility] Start: 11-20-2023 ambulatory Kvng Ochoa OLS Facil ity:[facility] Start: 11-05-2023 End: 11-05-2023 ambulatory Kvng Ochoa OLS Facility:[facility] Start: 11-04-2023 End: 11-04-2023 ambulatory Kvng Ochoa OLS Facility:[facility] Start: 10-28-2023 End: 10-28-2023 ambulatory Alexandra S Jolliff Facility:[facility] Start: 10-24-2023 End: 10-24-2023 ambulatory Alexandra S Jolliff Facility:[facility] Start: 10-21-2023 End: 10-21-2023 ambulatory Kvng Ochoa OLS Facility:[facility] Start: 10-15-2023 End: 10-15-2023 ambulatory Alexandra S Jolliff Facility:[facility] Start: 10-10-2023 End: 10-10-2023 ambulatory Kvng Ochoa OLS Facility:[facility] Start: 06-30-2023 End: 06-30-[address] Rosemary Doran Work Phone: [facility] Work Phone: Start: 06-30-2023 End: 06-30-[address] Rosemary Doran Work Phone: [facility] Work Phone: Start: 06-16-2023 End: 06-20-2023 Evaluation and management of inpatient [facility] Start: 06-16-2023 End: 06-20-2023 Evaluation and management of inpatient Sae Conde MD Work Phone: [facility] Comment on above: Closed displaced fra cture of medial condyle of right humerus, initial encounter (Primary Dx) Start: 06-16-2023 Non-patient / Non-visit Dr. Slim Doran Work Phone: [facility] Start: 06-16-2023 End: 06-16-2023 Emergency department patient visit Dr. Rosemary Doran Work Phone: [facility]Emergency [facility] Work Phone: Start: 05-30-2023 End: 05-30-[address] Rosemary Doran Work Phone: [facility] Work Phone: Start: 05-30-2023 End: 05-30-[address] Rosemary Doran Work Phone: [facility] Work Phone: Start: 05-19-2023 End: 05-19-[address] Rosemary Doran Work Phone: [facility] Work Phone: Start: 05-15-2023 End: 05-15-[address] Rosemary Doran Work Phone: [facility] Work Phone: Start: 05-12-2023 End: 05-12-[address] Rosemary Doran Work Phone: [facility] Work Phone: Start: 05-12-[address] Rosemary Doran Work Phone: [facility] Work Phone: Start: 05-01-2023 End: 05-01-[address] Rosemary Doran Work Phone: [facility] Work Phone: Start: 05-01-2023 End: 05-01-[address] Rosemary Doran Work Phone: [facility] Work Phone: Start: 04-17-2023 End: 04-17-[address] Rosemary Doran Work Phone: [facility] Work Phone: Start: 04-17-2023 End: 04-17-[address] Rosemary Doran Work Phone: [facility] Work Phone: Start: 04-17-[address] Rosemary Doran Work Phone: [facility] Work Phone: Start: 03-20-2023 End: 03-20-[address] Rosemary Doran Work Phone: [facility] Work Phone: Start: 02-21-2023 End: 02-21-[address] Rosemary Doran Work Phone: [facility] Work Phone: Start: 02-21-2023 End: 02-21-[address] Rosemary Doran Work Phone: [facility] Work Phone: Start: 01-20-2023 End: 01-20-[address] Rosemary Droan Work Phone: [facility] Work Phone: Start: 01-20-2023 End: 01-20-[address] Rosemary Doran Work Phone: [facility] Work Phone: Start: 01-20-2023 End: 01-20-[address] Rosemary Doran Work Phone: [facility] Work Phone: Start: 01-16-2023 End: 01-16-[address] Rosemary Doran Work Phone: [facility] Work Phone: Start: 01-16-2023 End: 01-16-[address] Rosemary Doran Work Phone: [facility] Work Phone: Start: 12-28-2022 Non-patient / Non-visit Dr. Slim Doran Work Phone: [facility] Work Phone: Start: 12-27-2022 Non-patient / Non-visit Dr. Slim Doran Work Phone: [facility] Work Phone: Start: 12-27-2022 End: 12-28-2022 Evaluation and management of inpatient Dr. Rosemary Doran Work Phone: [facility]Pro[facility] Work Phone: Start: 12-27-2022 End: 12-28-[address] Rosemary Doran Work Phone: [facility] Work Phone: Start: 12-19-2022 End: 12-19-[address] Rosemary Doran Work Phone: [facility] Work Phone: Start: 12-19-2022 End: 12-19-[address] Rosemary Doran Work Phone: [facility] Work Phone: Start: 12-19-[address] Rosemary Doran Work Phone: [facility] Work Phone: Start: 12-09-2022 End: 12-09-[address] Rosemary Doran Work Phone: [facility] Work Phone: Start: 12-09-2022 End: 12-09-[address] Rosemary Doran Work Phone: [facility] Work Phone: Start: 12-09-[address] Rosemary Doran Work Phone: [facility] Work Phone: Start: 12-05-2022 End: 12-05-[address] Rosemary Doran Work Phone: [facility] Work Phone: Start: 11-20-2022 End: 11-20-[address] Rosemary Doran Work Phone: [facility] Work Phone: Start: 11-20-2022 End: 11-20-[address] Rosemary Doran Work Phone: [facility] Work Phone: Start: 11-20-[address] Rosemary Doran Work Phone: [facility] Work Phone: Start: 11-18-2022 End: 11-18-2022 Emergency department patient visit Dr. Rosemary Doran Work Phone: [facility]Emergency Department Work Phone: Start: 11-15-2022 Non-patient / Non-visit Dr. Slim Doran Work Phone: [facility] Work Phone: Start: 11-14-2022 Non-patient / Non-visit Dr. Slim Doran Work Phone: [facility] Start: 11-14-2022 Non-patient / Non-visit Dr. Slim Doran Work Phone: [facility] Work Phone: Start: 11-14-2022 End: 11-15-2022 Evaluation and management of inpatient Dr. Rosemary Doran Work Phone: [facility]Pro[facility] Work Phone: Start: 11-14-[address] Marcelo Doran Work Phone: [facility] Work Phone: Start: 10-23-2022 End: 10-23-[address] Rosemary Doran Work Phone: [facility] Work Phone: Start: 10-23-2022 End: 10-23-[address] Rosemary Doran Work Phone: [facility] Work Phone: Start: 10-22-2022 End: 10-22-[address] Rosemary Doran Work Phone: [facility] Work Phone: Start: 10-22-2022 End: 10-22-[address] Rosemary Doran Work Phone: [facility]-Physical Therapy Work Phone: Start: 10-22-[address] Sada Doran Work Phone: [facility] Work Phone: Start: 10-15-2022 End: 10-15-[address] Rosemary Doran Work Phone: [facility] Work Phone: Start: 09-26-2022 Non-patient / Non-visit Dr. Slim Doran Work Phone: [facility] Start: 09-26-2022 End: 09-26-[address] Rosemary Doran Work Phone: [facility] Work Phone: Start: 09-26-2022 End: 09-26-[address] Rosemary Doran Work Phone: [facility] Work Phone: Start: 09-18-2022 End: 09-18-[address] Rosemary Doran Work Phone: [facility] Work Phone: Start: 09-18-2022 End: 09-18-[address] Rosemary Doran Work Phone: [facility] Start: 09-13-2022 End: 09-13-[address] Rosemary Doran Work Phone: [facility]Laboratory Start: 09-08-2022 End: 09-08-2022 Emergency department patient visit Dr. Rosemary Doran Work Phone: [facility]Emergency Department Start: 09-06-2022 End: 09-06-[address] Rosemary Doran Work Phone: [facility] Start: 09-05-2022 End: 09-05-[address] Rosemary Doran Work Phone: [facility] Start: 08-08-2022 End: 08-08-[address] Rosemary Doran Work Phone: [facility] Start: 06-26-2022 End: 06-26-[address] Rosemary Doran Work Phone: [facility] Work Phone: Start: 06-26-2022 End: 06-26-[address] Rosemary Doran Work Phone: [facility] Start: 06-04-2022 End: 06-04-[address] Rosemary Doran Work Phone: [facility] Work Phone: Start: 06-04-2022 End: 06-04-[address] Rosemary Doran Work Phone: [facility] Start: 04-16-2022 End: 04-16-[address] Rosemary Doran Work Phone: [facility] Start: 02-11-2022 End: 02-11-2022 Emergency department patient visit Dr. Rosemary Doran Work Phone: [facility]-Emergency Department Start: 10-18-2021 End: 10-18-[address] Rosemary Doran Work Phone: [facility] Start: 10-12-2019 End: 10-12-2019 Refill Jo Perez Work Phone: [facility] Comment on above: Refill Request; Refi ll Request Start: 02-11-2018 Patient encounter ROSA ELENA Cai lity:[facility] Start: 01-05-2018 End: 01-05-2018 Patient encounter JO PEREZ Facility:[facility] Start: 07-21-2017 End: 07-21-2017 Patient encounter RICKEY CHAVARRIA Facility:[facility] Start: 07-15-2017 Patient encounter JO PEREZ Facility:[facility] Start: 07-07-2017 End: 07-07-2017 Patient encounter JO PEREZ Facility:[facility] Start: 06-27-2017 End: 06-27-2017 Patient encounter JO PEREZ Facility:[facility] Start: 06-11-2017 Patient encounter JO PEREZ Facility:[facility] Start: 02-01-2015 End: 02-01-2015 Patient encounter procedure Shi Kelsey Lester Work Phone: [facility] Start: 02-01-2015 Results Only Shi ford Work Phone: [facility] Start: 04-17-2010 End: 04-17-2010 Patient encounter procedure Cruz Geiger Lippitt Work Phone: [facility] Start: 04-17-2010 Results Only Cruz Vale ippitt Work Phone: [facility] Start: 07-31-2009 End: 07-31-2009 Patient encounter procedure Clotilde Doss Work Phone: [facility] Start: 07-31-2009 Results Only Clotilde murray Work Phone: [facility] Start: 05-07-2001 End: 05-07-2001 Patient encounter procedure Sae Hope Astrid Work Phone: [facility] Start: 05-07-2001 Results Only Sae H Pap as Work Phone: [facility] Procedures Date Procedure Procedure Detail Performing Clinician [...] quantitative blood xcpt reagent strip Connie Perez [employer] Work Phone: Start: 06-20-2023 Prothrombin time Meredi th Perez [employer]ING [employer] - [employer]ING INSPECTOR Work Phone: Start: 06-19-2023 Glucose quantitative blood xcpt reagent strip Connie Perez [employer] - [employer]ING INSPECTOR Work Phone: Start: 06-19-2023 Glucose quantitative blood xcpt reagent strip Connie Perez [employer]ING [employer] - BOXING INSPECTOR Work Phone: Start: 06-19-2023 Glucose quantitative blood xcpt reagent strip Connie Perez [employer]ING [employer] - [employer]OXING INSPECTOR Work Phone: Start: 06-19-2023 Prothrombin time Meredi th Perez [employer] - [employer]ING INS[employer]OR Work Phone: Start: 06-19-2023 Glucose quantitative blood xcpt reagent strip Connie Perez [employer]ING [employer] - [employer]OXING INSPECTOR Work Phone: Start: 06-19-2023 Basic metabolic pane l calcium total Connie Perez [employer]ING [employer] - [employer]OXING INSPECTOR Work Phone: Start: 06-18-2023 Glucose quantitative blood [...] metabolic pane l calcium total Connie Perez [employer]ING [employer] - BOXING INSPECTOR Work Phone: Start: 06-17-2023 Glucose quantitative blood [...] on above: Performed By: #### L [id number] ####Commercial Installer: ALEXANDRA BUSTAMANTE ([id number])[facility] ([address] Start: 06-16-2023 End: 06-16-2023 Radex shoulder complete [...] Phone: Start: 02-01-2015 CONVERTED SURGICAL PATHOLOGY Shi Kelsey Lester Work Phone: Start: 04-17-2010 CONVERTED SURGICAL PATHOLOGY Cruz Lemosvel Sanchez Work Phone: Start: 07-31-2009 CONVERTED SURGICAL PATHOLOGY Clotilde Stone Misbah Work Phone: Start: 02-14-2007 History of placement of stent for coronary artery disease History of coronary artery stent placement Dr. Cesar Cole MD Comment on above: PCI-JOE-Mid LCx w/ 2 .5 x 20 mm Taxus Stent 02/14/2007 Start: 05-07-2001 CONVERTED SURGICAL PATHOLOGY Sae Arnett Astrid Work Phone: Plan of Treatment Date Care Activity Detail Author Start: 09-13-2024 Lamotrigine measurement [facility] Start: 09-13-2024 Measurement of substance [facility] Start: 09-11-2024 Patient discharge [facility] Start: 09-11-2024 Complete blood count [facility] Start: 09-10-2024 Following clinical p athway protocol [facility] Start: 09-10-2024 Transfusion of blood product [facility] Start: 09-10-2024 Aspiration precautions [facility] Start: 09-10-2024 Assessment of risk o f venous thromboembolism [facility] Start: 09-10-2024 Cardiac monitoring [facility] Start: 09-10-2024 Catheterization of vein [facility] Start: 09-10-2024 Consultation [facility] Start: 09-10-2024 Continuous pulse oximetry [facility] Start: 09-10-2024 Electroencephalogram [facility] Start: 09-10-2024 Elevation of head of bed [facility] Start: 09-10-2024 Exercises [facility] Start: 09-10-2024 Insertion of cathete r into peripheral vein [facility] Start: 09-10-2024 Notification of physician [facility] Start: 09-10-2024 Oxygen therapy [facility] Start: 09-10-2024 Patient referral to dietitian [facility] Start: 09-10-2024 Providing care accor ding to standard [facility] Start: 09-10-2024 Referral to occupati onal therapist [facility] Start: 09-10-2024 Referral to service [facility] Start: 09-10-2024 Speech therapy assessment [facility] Start: 09-10-2024 Telemedicine consult ation with patient [facility] Start: 09-10-2024 Tobacco use cessatio n education [facility] Start: 09-10-2024 Vital signs measurements [facility] Start: 09-10-2024 End: 09-10-2024 [facility] Start: 09-10-2024 Verification routine [facility] Start: 09-10-2024 MRI of brain without contrast Brain without Contrast [facility] Start: 09-10-2024 Admission procedure [facility] Start: 09-10-2024 [facility] Start: 09-10-2024 Bacteria identified in Urine by Culture Urine Culture [facility] Start: 09-10-2024 Urine culture [facility] Start: 09-10-2024 Oxygen therapy [facility] Start: 09-10-2024 [facility] Start: 09-08-2024 Lamotrigine measurement [facility] Start: 01-06-2024 Urine microalbumin profile DTA P,TDAP,TD (1 - Tdap) [facility] Comment on above: Postponed from 06/23 (Declined at this time) Start: 07-28-2023 ADVANCE DIRECTIVE DISCUSSION A DVANCE DIRECTIVE DISCUSSION [facility] Start: 06-16-2023 Application long arm splint shoulder hand APPLY LONG ARM SPLINT [facility] Start: 06-16-2023 [facility] Start: 03-31-2023 Medicare Advantage A nnual Wellness Visit Medicare Advantage Annual Wellness Visit [facility] Start: 01-20-2023 Serum immunofixation [facility] Start: 01-20-2023 Urine immunofixation [facility] Start: 12-28-2022 Patient discharge [facility] Start: 12-28-2022 [facility] Start: 12-27-2022 Following clinical p athway protocol [facility] Start: 12-27-2022 Assessment of risk o f venous thromboembolism [facility] Start: 12-27-2022 Catheterization of vein [facility] Start: 12-27-2022 Incentive spirometry [facility] Start: 12-27-2022 Inhalation therapy procedure [facility] Start: 12-27-2022 Insertion of cathete r into peripheral vein [facility] Start: 12-27-2022 Measuring intake and output [facility] Start: 12-27-2022 Neurological assessment [facility] Start: 12-27-2022 Providing care accor ding to standard [facility] Start: 12-27-2022 Provision of activit y privileges [facility] Start: 12-27-2022 Referral to occupati onal therapist [facility] Start: 12-27-2022 Referral to service [facility] Start: 12-27-2022 Speech therapy assessment [facility] Start: 12-27-2022 [facility] Start: 12-27-2022 Admission procedure [facility] Start: 11-15-2022 Patient discharge [facility] Start: 11-15-2022 Blood chemistry [facility] Start: 11-14-2022 Following clinical p athway protocol [facility] Start: 11-14-2022 Assessment of risk o f venous thromboembolism [facility] Start: 11-14-2022 Cardiac monitoring [facility] Start: 11-14-2022 Catheterization of vein [facility] Start: 11-14-2022 Continuous pulse oximetry [facility] Start: 11-14-2022 Elevation of head of bed [facility] Start: 11-14-2022 Exercises [facility] Start: 11-14-[address] anned interventions [facility] Start: 11-14-2022 Insertion of cathete r into peripheral vein [facility] Start: 11-14-2022 Measuring intake and output [facility] Start: 11-14-2022 MRI of brain without contrast Brain without Contrast [facility] Start: 11-14-2022 Notification of physician [facility] Start: 11-14-2022 Oxygen therapy [facility] Start: 11-14-2022 Patient referral to dietitian [facility] Start: 11-14-2022 Providing care accor ding to standard [facility] Start: 11-14-2022 Referral to occupati onal therapist [facility] Start: 11-14-2022 Referral to service [facility] Start: 11-14-2022 Speech therapy assessment [facility] Start: 11-14-2022 Tobacco use cessatio n education [facility] Start: 11-14-2022 [facility] Start: 11-14-2022 Verification routine [facility] Start: 11-14-2022 Admission procedure [facility] Start: 11-14-2022 Patient referral to dietitian [facility] Start: 09-18-2022 Patient referral [facility] Work Phone: Start: 09-18-2022 Anthony and lambda light chains [facility] Start: 09-18-2022 Thiamine measurement [facility] Start: 09-17-2022 [facility] Start: 03-26-2020 Hepatitis B screening URINE ALBUMIN:CREATININE RATIO [facility] Start: 03-26-2020 Hepatitis B surface antibody level LDL CHOLESTEROL [facility] Start: 11-30-2019 Influenza vaccination INFLUENZA (#1) [facility] Start: 10-01-2019 [object Object] [facility] Start: 09-25-2019 HbA1c (Bld) [Mass fraction] HBA1C [facility] Start: 07-07-2018 Hepatitis C antibody , confirmatory test DILATED RETINAL EXAM [facility] Start: 07-20-2013 DTaP/Tdap/Td Vaccine s (1 - Tdap) DTaP/Tdap/Td Vaccines (1 - Tdap) [facility] Start: 12-05-2010 SHINGRIX VACCINE (2 of 3) CONTRERAS GRIX VACCINE (2 of 3) [facility] Start: 12-05-2010 Zoster Vaccines (2 of 3) Zoste r Vaccines (2 of 3) [facility] Start: 1995 RSV Immunization age d 60 or older (1 - 1-dose 60+ series) RSV Immunization aged 60 or older (1 - 1-dose 60+ series) [facility] Start: 1947 Depression Screening Depression Scre ening [facility] Start: 1935 Screening for osteoporosis Bone Dens ity Scan [facility] Albumin [Moles/volum e] in Serum or Plasma [facility] Albumin/Globulin ratio [facility] Anion gap in Serum or Plasma [facility] Anion gap measurement [facility] Ankle brachial pressure index [facility] Blood ammonia measurement [facility] Blood ammonia measurement [facility] BUN/Creatinine ratio [facility] BUN/Creatinine ratio [facility] Calcium [Mass/volume ] in Serum or Plasma [facility] Calcium [Mass/volume ] in Serum or Plasma [facility] Carbon dioxide, tota l [Moles/volume] in Central venous blood [facility] Carbon dioxide, tota l [Moles/volume] in Serum or Plasma [facility] Chloride [Moles/volu me] in Serum or Plasma [facility] Cholesterol [Mass/vo lume] in Serum or Plasma [facility] Cholesterol [Mass/vo lume] in Serum or Plasma [facility] Cholesterol in HDL [Mass/volume] in Serum or Plasma [facility] Cholesterol in HDL [Mass/volume] in Serum or Plasma [facility] Cholesterol in LDL [Mass/volume] in Serum or Plasma [facility] Creatinine [Mass/vol ume] in Serum or Plasma [facility] Creatinine [Moles/vo lume] in Serum or Plasma [facility] Electrophoresis: [id number] [facility] Electrophoresis: andrew ma globulin [facility] Erythrocyte mean cor puscular volume determination [facility] Globulin measurement [facility] Glucose [Mass/volume ] in Serum or Plasma [facility] Glucose [Mass/volume ] in Serum or Plasma [facility] Hematocrit [Volume F raction] of Blood [facility] Hematocrit [Volume F raction] of Blood [facility] Hemoglobin [Mass/vol ume] in Blood [facility] Hemoglobin [Mass/vol ume] in Blood [facility] IgA [Mass/volume] in Serum or Plasma [facility] IgG [Mass/volume] in Serum or Plasma [facility] IgM [Mass/volume] in Serum or Plasma [facility] Anthony/lambda light c nat ratio [facility] Lambda light chains. free [Mass/volume] in Serum or Plasma [facility] Lamotrigine measurement [facility] Leukocytes [#/volume ] in Blood [facility] Leukocytes [#/volume ] in Blood [facility] Low density lipoprot ein cholesterol measurement [facility] Mean corpuscular hem oglobin concentration determination [facility] Mean corpuscular hem oglobin concentration determination [facility] Mean corpuscular hem oglobin determination [facility] Mean corpuscular hem oglobin determination [facility] Measurement of renal function [facility] Measurement of renal function [facility] MR Cervical spine [facility] MR Lumbar spine [facility] Neutrophil count [facility] Neutrophil percent differential count [facility] Patient Education [facility] Work Phone: Patient referral [facility] Work Phone: Platelets [#/volume] in Blood [facility] Platelets [#/volume] in Blood [facility] Potassium [Moles/vol ume] in Serum or Plasma [facility] Potassium measurement [facility] Protein electrophore sis panel - Serum or Plasma [facility] Red blood cell count [facility] Red blood cell count [facility] Red cell distributio n width determination [facility] Red cell distributio n width determination [facility] Serum chloride measurement [facility] Serum protein electrophoresis [facility] Sodium [Moles/volume ] in Serum or Plasma [facility] Sodium measurement [facility] Total cholesterol:HD L ratio measurement [facility] Triglycerides measurement [facility] Triglycerides measurement [facility] Troponin T.cardiac [Mass/volume] in Serum or Plasma by High sensitivity method [facility] Troponin T.cardiac [Mass/volume] in Serum or Plasma by High sensitivity method [facility] Urea nitrogen [Mass/ volume] in Serum or Plasma [facility] Urea nitrogen [Mass/ volume] in Serum or Plasma [facility] Urine culture Urine Culture [facility] Urine kappa light ch ain measurement [facility] US Carotid arteries [facility] VLDL cholesterol measurement [facility] VLDL cholesterol measurement [facility] Immunizations Immunization Date Immunization Notes Care Provider Fa cility 06-02-2020 Covdeena (Moderna) Dr. Rosemary mixon Work Phone: [facility] 05-05-2020 Steph (Moderna) Dr. Rosemary mixon Work Phone: [facility] 04-27-2019 influenza, high dose seasonal, preservative-free Alexia Rashida [facility] 01-05-2018 influenza, high dose seasonal, preservative-free Alexia Adamsdonna [facility] 12-12-2014 influenza, seasonal, injectable Alexia Adamsdonna [facility] 06-15-2014 pneumococcal conjuga te vaccine, 13 valent Allia Adamsdonna [facility] 12-06-2013 influenza, seasonal, injectable [facility] 07-19-2013 tetanus and diphther ia toxoids, adsorbed, preservative free, for adult use (2 Lf of tetanus toxoid and 2 Lf of diphtheria toxoid) Allia Adamsdonna [facility] 01-25-2013 influenza, seasonal, injectable Alexia Adamsdonna [facility] 01-13-2012 influenza, seasonal, injectable Alexia Adamsdonna [facility] 02-11-2011 influenza, seasonal, injectable [place] Adamsdonna [facility] 10-10-2010 zoster vaccine, live Jo Martinez [facility] 03-31-2006 pneumococcal polysaccharide vaccine, 23 valent [facility] Payers Date Payer Category Payer Self-pay [id number] 2023 Medicare [employer] MEDICARE UHC AARP MEDICARE ADVANTAGE [id number] 2023-Present [phone] [address] [address] [place] [address] Medicare HMO [id number] [id number] 2023 Unknown [id number] 2005 Unknown [id number] 1.2.840.670522.1.13.159.2.7.3 .278319.315 1935 Unknown [id number] 2.16.840.1.321753.3.579.2.278 1935 Unknown [id number] 2.16.840.1.298299.3.579.2.278 1935 Unknown [id number] 2..840.1.570371.3.579.2.278 1935 Unknown [id number] 2.840.1.548990.3.579.2.278 1935 Unknown [id number] 2.840.1.548211.3.579.2.278 1935 Unknown [id number] 2.840.1.421818.3.579.2.278 1935 Unknown [id number] 2.16840.1.172345.3.579.2.278 Medicare MEDICARE PART A B [id number] Unknown [id number] Unknown [id number] 2.16.840.1.826655.3.579.2.462 Unknown [id number] 2.16840.1.908725.3.579.2.462 Unknown [id number] 2.16.840.1.498311.3.579.2.462 Unknown [id number] 2.16.840.1.035220.3.579.2.462 Unknown [id number] 2.16.840.1.583993.3.579.2.462 Unknown [id number] 2.16.840.1.737219.3.579.2.462 Unknown [id number] 2.16.840.1.145394.3.579.2.462 Unknown [id number] 2.16.840.1.058568.3.579.2.462 Unknown [id number] 2.16.840.1.593044.3.579.2.462 Unknown [id number] 2.16.840.1.229716.3.579.2.462 Unknown [id number] 2.16.840.1.549145.3.579.2.462 Unknown [id number] 2.16.840.1.520771.3.579.2.462 Unknown [id number] 2.16.840.1.505725.3.579.2.462 Unknown [id number] 2.16840.1.377165.3.579.2.462 Unknown [id number] 2.16840.1.140638.3.579.2.462 Unknown [id number] 2.16840.1.183993.3.579.2.462 Unknown [id number] 2.16840.1.628987.3.579.2.462 Unknown [id number] 2.16.840.1.648964.3.579.2.462 Unknown [id number] 2.16.840.1.923795.3.579.2.462 Unknown [id number] 2.16840.1.890088.3.579.2.462 Unknown [id number] 2.16.840.1.457700.3.579.2.462 Unknown [id number] 2.16.840.1.935791.3.579.2.462 Unknown [id number] 2.16.840.1.673945.3.579.2.462 Unknown [id number] 2.16.840.1.282146.3.579.2.462 Unknown [id number] 2.16.840.1.374863.3.579.2.462 Unknown [id number] 2.16.840.1.478261.3.579.2.462 Unknown [id number] 2.16.840.1.729520.3.579.2.462 Unknown [id number] 2.16.840.1.954056.3.579.2.462 Unknown [id number] 2.16.840.1.191850.3.579.2.462 Unknown [id number] 2.16.840.1.589866.3.579.2.462 Unknown [id number] 2.16.840.1.987879.3.579.2.462 Unknown [id number] 2.16.840.1.047075.3.579.2.462 Unknown [id number] 2.16.840.1.246491.3.579.2.462 Unknown [id number] 2.840.1.582589.3.579.2.462 Unknown [id number] 2.840.1.385993.3.579.2.462 Unknown [id number] 2.16840.1.568905.3.579.2.462 Unknown [id number] 2.16.840.1.027016.3.579.2.462 Unknown [id number] 2.16.840.1.476640.3.579.2.462 Unknown [id number] 2..840.1.987625.3.579.2.462 Unknown [id number] 2.16840.1.842312.3.579.2.462 Unknown [id number] 2.16840.1.591243.3.579.2.462 Unknown [id number] 2.16840.1.270213.3.579.2.462 Unknown [id number] 2.16.840.1.989468.3.579.2.462 Social History Date Type Detail Facility Start: 05-13-2019 End: 09-11-2024 Tobacco smoking status NHIS Former smoker [facility] End: 03-20-2008 History of tobacco use Current smoker [facility] End: 03-20-2008 History of tobacco use Cigarette Smoker [facility] Start: 05-13-2019 End: 06-17-2023 Cigarettes smoked current (pack per day) - Reported [facility] Start: 05-13-2019 End: 06-18-2023 Tobacco use and exposure Never used [facility] Start: 05-13-2019 Alcohol intake 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 (finding) [facility] Start: 1935 Sex Assigned At Not on file [facility] Exposure to SARS-CoV -2 (event) Not sure [facility] Start: 02-11-2022 End: 06-16-2023 Tobacco smoking status NHIS Unknown if ever smoked [facility] Start: 04-19-2020 Rare [facility] Start: 04-19-2020 None [facility] Start: 04-19-2020 Spouse/ Signif icant Other [facility] Start: 08-11-2020 Non-smoker [facility] Start: 1935 Sex Assigned At Female [facility] Start: 06-18-2023 Tobacco smoking stat us NHIS Never smoked tobacco [facility] [employer] Start: 06-17-2023 End: 06-18-2023 [facility] [employer] [facility] Has the [employer], [employer], [employer], or water [employer] threatened to shut off services in your home in past 12Mo No [facility] How often to you hav e a drink containing alcohol? Never [facility] How many standard drinks containing alcohol do you have on a typical day? Patient does not drink [facility] [employer] (I/We) worried wheth er (my/our) food would run out before (I/we) got money to buy more. Never true [facility] Start: 06-04-2024 End: 07-20-2024 Sex Female (finding) [facility] Medical Equipment Procedure Code Equipment [...] instructed [employer] Cancellous 30cc 1-8 - [id number] - [id number]_imp Start: 06-18-2023 Plate Hum Dist 2.7/3.5 83953_imp Start: 06-18-2023 Plate Va Olcrn 2.7/3.5 2h R - [id number]_imp Start: 06-18-2023 Plate Va M-D-Hum 2.7/3.5 1h L - [id number]_imp Start: 06-18-2023 Screw Lck Va 2.2q56l-C T8 Rcs - [id number] 83964_imp Start: 06-18-2023 Screw Lck Va 2.7x58 S-T T8 Rcs - [id number] 83965_imp Start: 06-18-2023 Screw Lck Va 2.3j43a-C T8 Rcs - [id number] 83966_imp Start: 06-18-2023 Screw Lck Va 2.4t41p-T T8 Rcs - [id number] 83967_imp Start: 06-18-2023 Screw Lck Va 2.5u92b-B T8 Rcs - [id number] 83968_imp Start: 06-18-2023 Screw Lck Va 2.7x50 S-T T8 Rcs - [id number] 83969_imp Start: 06-18-2023 Screw Crtx 3.5x22mm S-T - [id number] 83971_imp Start: 06-18-2023 Screw Crtx 3.5x26mm S-T - [id number] 83972_imp Start: 06-18-2023 Screw Lck Va 2.3o71q-X T8 Rcs - [id number] 83975_imp Start: 06-18-2023 Screw Lck Va 2.0p07e-G T8 Rcs - [id number] 83976_imp Start: 06-18-2023 Screw Lck Va 2.7x56 S-T T8 Rcs - [id number] 83956_imp Start: 06-18-2023 Screw Crtx 3.5x28mm S-T - [id number] 83957_imp Start: 06-18-2023 Screw Crtx 3.5x30mm S-T - [id number] 83958_imp Start: 06-18-2023 Screw Lck Va 2.3p80j-P T8 Rcs - [id number] 83959_imp Start: 06-18-2023 Screw Lck Va 2.8o77t-Y T8 Rcs - [id number] 83961_imp Start: 06-18-2023 Goals Date Patient Goal Desired Activity /State Functional Status Date Assessment Result Facility 09-11-2024 Functional status Ambulates [facility] Work Phone: 12-28-2022 Functional status Ambulates [facility] Work Phone: 11-15-2022 Functional status Chair [facility] Work Phone: Mental Status Date Assessment Result Facility 09-11-2024 Cognitive function Voice/Name [facility] Work Phone: 09-10-2024 Cognitive function Voice/Name [facility] Work Phone: 09-08-2024 Cognitive function Voice/Name [facility] Work Phone: 12-28-2022 Cognitive function Voice/Name [facility] Work Phone: 11-18-2022 Cognitive function Level Of Cons ciousness Awake;Alert;Appropriate [facility] Work Phone: 11-15-2022 Cognitive function Appropriate;Cooperativ e [facility] Work Phone: 11-14-2022 Cognitive function Voice/Name [facility] Work Phone: 11-14-2022 Cognitive function Voice/Name [facility] Work Phone: 09-08-2022 Cognitive function Awake;Alert;A ppropriate;Follow s Commands [facility] Work Phone: 02-11-2022 Cognitive function Awake;Alert;Appropriat e [facility] Work Phone: Clinical Notes 02-14-2007 to 09-11-2024 Note Date & Type Note Facility 09-11-2024 Discharge summary [facility] 09-11-2024 Procedure note [facility] 09-11-2024 Discharge summary [facility] 09-11-2024 Discharge summary Note Date/Time September 11, 2024 2:40pm [facility] Medical Records Department [address] [place] [address] Instructions for Home/Discharge Instructions 09/11/24 1214 MR#: [id number] Acct: [id number] Name: EZRA GONZALEZ Rep #:[id number] : 1935 89 From: Matthew carbajal DO PCP: Dr. Kvng Ochoa, DO Status:ADM MARIELOS Discharge Instructions Diet [...] Attending Provider: Matthew Oro Primary Care Provider: Kvng Ochoa Consulting Providers: Olivia Trinidad; Janett French; [...] or as directed Referrals / Follow Up: Kvng Ochoa, [Primary Care Provider] - Disposition Disposition (needs [...] Graves MD; Dr. Castillo Jones MD; Dr. Kvng Ochoa DO; Dr. Daniel Leroy MD; Dr. Cindy Horn MD; Meagan Edmondson MD; Keyshawn Swan MD; Cara Batista DO; Robinson Mayorga MD; Aura Thurman DO; Ashu Leonard MD ~ Signed [facility] Work Phone: 1(251) 431-143206-14-2025 Discharge summary Author [facility] Note Date/Time September 11, 2024 3:14 pm [facility] Medical Records Department [address] [place] [address] Discharge Summary 09/11/24 1214 MR#: [id number] Acct: [id number] Name: EZRA GONZALEZ Rep #:[id number] : 1935 89 From: Matthew carbajal DO PCP: Dr. Kvng Ochoa DO Status:ADM MARIELOS Location: [place] [id number] Providers Date of Admission: 09/10/24 Date of Discharge: 09/11/24 Primary Care Physician: Dr. Kvng Ochoa DO Consultations 09/10/24 17:16 Consult: Tele-Neurology [...] is an 89-year-old female who presented to [facility] ED on 09/10/2024 with dysarthria. [...] INR therapeutic on admit. Held home beta- atnonio and ARB on admit for permissive hypertension, [...] (Auto) 72.3 H, Lymph % (Auto) 16.6 L,[place] % (Auto) 9.1, Eos % (Auto) 1.2, [...] Clarity Clear, Urine pH 5.0, Ur Specific [place] 1.010, Urine Protein 30 H, Urine Glucose [...] Catch Urine Culture - Preliminary GNR lactose physician scientist Radiography Diagnostic Testing: Radiology Impression Head/Neck CTA [...] 3:01 pm with readback verification. Reading Location: [id number] Brain MRI 09/10/24 16:07 IMPRESSION: Atrophy and mild microvascular changes Reading [facility] D/C Instructions DC O2, CPAP, BIPAP Needs [...] Attending Provider: Matthew Oro Primary Care Provider: Kvng Ochoa Consulting Providers: Olivia Trinidad; Janett French; [...] or as directed Referrals / Follow Up: Kvng Ochoa DO [Primary Care Provider] - Disposition Disposition (needs filled in before D/C Order can be placed): Home, Self Care Charges/Coding Visit Charges Inpatient E&M: 13462 Disch Hosp >30min 09/11/24 1444 <Electronically signed by Matthew Oro DO> Cosigner Signature (if applicable): CC: Dr. Matthew Oro DO; Dr. Kvng Ochoa DO~ Signed ADDENDUM by Dr. Matthew Oro DO on 09/11/24 at 1513 Addendum Notified by neurology that routine EEG is showing an epileptic focus in the lefttemporal region. Neurology recommended starting patient on Keppra 500 mg twice daily. Will send prescription for this now. 09/11/24 1513<Electronically signed by Matthew Oro DO> Cosigner Signature (if applicable): cc: Dr. Matthew Oro DO; Dr. Kvng Ochoa DO ~* Signed [facility] Work Phone: 1(620) 466-646306-14-2025 Progress note Author Lenin Tamez [facility] Note Date/Time September 11, 2024 10:4 1am [facility] Medical Records Department [address] [place] [address] Progress Note - Neurology 09/11/24 1035 MR#: [id number] Acct: [id number] Name: EZRA GONZALEZ Rep #:[id number] : 1935 89 From: Lenin Morel PCP: Dr. 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 MRI brain - no acute stroke. LDL-100 Diagnosis: TIA Plan: Continue coumadin and statin. Check A1c. Follow up EEG. Continue lamictal.Follow up with neurology as an outpatient. 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 MRI brain - no acute stroke. Today, [...] (Auto) 72.3 H, Lymph % (Auto) 16.6 L,[place] % (Auto) 9.1, Eos % (Auto) 1.2, [...] Clarity Clear, Urine pH 5.0, Ur Specific [place] 1.010, Urine Protein 30 H, Urine Glucose [...] Catch Urine Culture - Preliminary GNR lactose physician scientist Radiography Diagnostic Testing: Radiology Impression Brain CT [...] Atrophy and mild microvascular changes Reading Location: [facility] Rhythm Strip Rhythm Strip: A-fib Rate: 75 [...] and with change in RN caregiver. Freq: [id number] Protocol: Activity Type Activity Date Activity User E-sign Co-sign Detail Recorded Client Recorded Date Recorded By Document 09/11/24 09:08 YOVANY [id number] 09/11/24 09:08 YOVANY 09/11/24 09:08 NIH Stroke Scale [NIHSS] A score of 0 is "normal" or asymptomatic . Total possible score is [...] 0 Query Text:A score of 0 is "normal" or asymptomatic. Total possible score is 42 [...] Cosigner Signature (if applicable): CC: ~ Signed [facility] Work Phone: 1(662) 376-102806-14-2025 [facility] Medical Records Department [address] [place] [address] Discharge Summary 09/11/24 1214 MR#: [id number] Acct: [id number] Name: EZRA GONZALEZ Rep #: [id number] : 1935 89 From: Matthew Oro DO PCP: Dr. Kvng Ochoa DO Status:ADM MARIELOS Location: [place] [address] Providers Date of Admission: 09/10/24 Date of Discharge: 09/11/24 Primary Care Physician: Dr. Kvng Ochoa DO Consultations 09/10/24 17:16 Consult: Tele-Neurology [...] is an 89-year-old female who presented to [facility] ED on 09/10/2024 with dysarthria. [...] and non- distended Anastasia (more content not included)...[facility]06-14-2025 Progress note [facility] Medical Records Department [address] [place] [address] Progress Note - Neurology 09/11/24 1035 MR#: [id number] Acct: [id number] Name: EZRA GONZALEZ Rep #:[id number] : 1935 89 From: Lenin Morel PCP: Dr. Kvng Ochoa, DO Status:ADM MARIELOS Location: [place] [address] Assessment and Plan: Neuro Assessment/Plan Telestroke (Audio/Video Encounter) 89 y/o woman with h/o DM, HTN, Afib on coumadin (INR 2 days ago was 2.9 and 2.4 at [place]) and seizure on lamictal (had last GTC on Friday) p/w transient dysarthria. History is obtained from patient. On my exam, NIHSS-0 and patient reports feeling better. She follows with Dr. Juarez with neurology. CT head- no acute intracranial process. 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 MRI brain - no acute stroke. LDL-100 Diagnosis: TIA Plan: Continue coumadin and statin. Check A1c. Follow up EEG. Continue lamictal.Follow up with neurology as an outpatient. 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 Sign off for now and please call [...] days ago was 2.9 and 2.4 at [place]) and seizure on lamictal (had last GTC on Friday) p/w transient dysarthria. History is obtained from patient. On my exam, NIHSS-0 and patient reports feeling better. She follows with Dr. Juarez with neurology. CT head- no acute intracranial process. 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 MRI brain - no acute stroke. Today, [...] %(Auto) 72.3 H, Lymph % (Auto) 16.6 L,[place] % (Auto) 9.1, Eos % (Auto) 1.2, [...] Clarity Clear, Urine pH 5.0, Ur Specific [place] 1.010, Urine Protein 30 H, Urine Glucose [...] Catch Urine Culture - Preliminary GNR lactose physician scientist Radiography Diagnostic Testing: Radiology Impression Brain CT 09/10/24 13:55 IMPRESSION: CHRONIC CHANGES. NO ACUTE FINDINGS. Red Alert: Chronic changes. The critical information above was relayed directly by me by telephone to Teri Garcia on 09/10/2024 at 2:05 pm with readback verification. Reading Location: [facility] Head/Neck CTA 09/10/24 13:55 IMPRESSION: Calcific plaque [...] 3:01 pm with readback verification. Reading Location: [id number] Brain MRI 09/10/24 16:07 IMPRESSION: Atrophy and mild microvascular changes Reading Location: [facility] Rhythm Strip Rhythm Strip: A-fib Rate: [...] and with change in RN caregiver. Freq: [id number] Protocol: Activity Type Activity Date Activity User E-sign Co-sign Detail Recorded Client Recorded Date Recorded By Document 09/11/24 09:08 YOVANY [id number] 09/11/24 09:08 YOVANY 09/11/24 09:08 NIH Stroke Scale [NIHSS] A score of 0 is "normal" or asymptomatic . Total possible score is [...] 0 Query Text:A score of 0 is "normal" or asymptomatic. Total possible score is 42 [...] Cosigner Signature (if applicable): CC: ~ Signed [facility]06-13-2025 History and physical note Author [facility] Note Date/Time September 10, 2024 5:27 pm [facility] Medical Records Department [address] [place] [address] H&P Exam - Hospitalist 09/10/24 1603 MR#: [id number] Acct: [id number] Name: EZRA GONZALEZ Rep #:[id number] : 1935 89 From: Matthew carbajal DO PCP: Dr. Kvng Ochoa, DO Status:ADM MARIELOS Location: [place] [address] HPI - General General Date of Admission: 09/10/24 Date of Service: 09/10/24 Chief Complaint: Dysarthria HPI Narrative EZRA GONZALEZ, is a 89 F who presented to [facility] ED on 09/10/2024 with dysarthria. Patient lives at assisted living at [place]. Has history of seizures and is on [...] any other acute concerns at this time. 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 Reading Location: [id number] Head/Neck CTA 09/10/24 13:55 IMPRESSION: Calcific plaque [...] 3:01 pm with readback verification. Reading Location: [id number] Assessment & Plan Assessment/Plan (1) Difficulty with speech: PLAN: Plan Patient is an 89-year-old female who presented to [facility] ED on 09/10/2024 with dysarthria. [...] 55 minutes. Charges/Coding Visit Charges Inpatient E&M: 64529 Init Hosp L2 09/10/24 1727 <Electronically signed by Matthew Oro DO> Cosigner Signature (if applicable): CC: Dr. Matthew Oro DO; Dr. Kvng Ochoa DO~ Signed [facility] Work Phone: 1(621) 489-386706-13-2025 Discharge summary Author [facility] Note Date/Time September 10, 2024 4:17 pm [facility] Medical Records Department [address] [place] [address] Emergency Department Summary 09/10/24 MR#: [id number] Acct: [id number] Name: EZRA GONZALEZ Rep #:[id number] : 1935 89 From: Teri Echeverria PCP: Dr. Kvng Ochoa DO Status:REG ER Location: ED HPI [...] son Wilfredo (her eldest son) phone number [phone]. He states that she follows with Dr. 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 He also tells me that he talk to her about 615 this morningand she seemed a little off with her mentation as well as her pronunciation. 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 Reading Location: [id number] Head/Neck CTA 09/10/24 13:55 IMPRESSION: Calcific plaque [...] 3:01 pm with readback verification. Reading Location: [id number]-[id number]-I Rhythm Strip Rhythm Strip: A-fib Rate: 75 Ectopy: None EKG Initial EKG: Attestation: I personally reviewed and interpreted this EKG as follows: Interpretation: Atrial Fibrillation Comments: Atrial fibrillation at a rate of 75 bpm Left axis deviation Moderate voltage criteria for LVH Normal ST segments Management Discussion w/another healthcare provider: Hospitalist, Electrical Prospector and Radiologist Discharge Plan Triage Chief Complaint: [...] Instructions: or as directed Primary Care Provider: Kvng Ochoa Referrals: Kvng Ochoa DO [Primary Care Provider] - Print Language: [place]ican Disposition Disposition: Acute Care Hospital [facility] NIHSS NIHSS 1a. Level of Consciousness: [...] No aphasia; normal 10. Dysarthria: 1 = Xvfv-ve-iepydldq dysarthria; 11. Extinction and Inattention: 0 - [...] your Primary Care Provider. Call [facility] ([phone]) or report to the closest Emergency Room. Call 911 if necessary. 09/10/24 1617 <Electronically signed by Teri Garcia DO> Cosigner Signature (if applicable): CC: Dr. Kvng Ochoa DO ~ Signed [facility] Work Phone: 1(445) 522-997006-13-2025 History and physical note [facility] Medical Records Department [address] [place] [address] H&P Exam - Hospitalist 09/10/24 1603 MR#: [id number] Acct: [id number] Name: EZRA GONZALEZ Rep #:[id number] : 1935 89 From: Matthew carbajal DO PCP: Dr. Kvng Ochoa, DO Status:ADM MARIELOS Location: [place] [address] HPI - General General Date of Admission: 09/10/24 Date of Service: 09/10/24 Chief Complaint: Dysarthria HPI Narrative EZRA GONZALEZ, is a 89 F who presented to [facility] ED on 09/10/2024 with dysarthria. Patient lives at assisted living at [place]. Has history of seizures and is on [...] any other acute concerns at this time. 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 Reading Location: [id number] Head/Neck CTA 09/10/24 13:55 IMPRESSION: Calcific plaque [...] 3:01 pm with readback verification. Reading Location: [facility] Assessment & Plan Assessment/Plan (1) Difficulty with speech: PLAN: Plan Patient is an 89-year-old female who presented to [facility] ED on 09/10/2024 with dysarthria. [...] 55 minutes. Charges/Coding Visit Charges Inpatient E&M: 50608 Init Hosp L2 09/10/24 3162 Cosigner Signature (if applicable): CC: Dr. Matthew Oro DO; Dr. Kvng Ochoa DO~ Signed [facility]06-13-2025 Discharge summary [facility] Medical Records Department [address] [place] [address] Emergency Department Summary 09/10/24 MR#: [id number] Acct: [id number] Name: EZRA GONZALEZ Rep #:[id number] : 1935 89 From: Teri Echeverria PCP: Dr. Kvng Ochoa DO Status:REG ER Location: ED HPI [...] son Wilfredo (her eldest son) phone number [phone]. He states that she follows with Dr. 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 He also tells me that he talk to her about 615 this morningand she seemed a little off with her mentation as well as her pr onunciation. 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 [...] 72.3 H Lymph % (Auto) 16.6 L [place] % (Auto) 9.1 Eos % (Auto) 1.2 [...] Clarity Clear Urine pH 5.0 Ur Specific [place] 1.010 Urine Protein 30 H Urine Glucose [...] segments Management Discussion w/another healthcare provider: Hospitalist, Electrical Prospector and Radiologist Discharge Plan Triage Chief Complaint: Stroke Alert ED Provider: Teri Garcia Dx/Rx/DC Orders Clinical Impression: Difficulty with speech, penitentiary current use of anticoagulant, Atrial fibrillation, chronic, [...] Instructions: or as directed Primary Care Provider: Kvng Ochoa Referrals: Kvng Ochoa DO [Primary Care Provider] - Print Language: [place] Disposition Disposition: Acute Care Hospital [facility] NIHSS NIHSS 1a. Level of Consciousness: [...] No aphasia; normal 10. Dysarthria: 1 = Utft-ie-nuyywilm dysarthria; 11. Extinction and Inattention: 0 - [...] problems, contact your Primary Care Provider. Call [employer] [facility] ([phone]) or report tothe closest Emergency Room. Call 911 if necessary. 09/10/24 1617 Cosigner Signature (if applicable): CC: Dr. Kvng Ochoa DO ~ Signed [facility]06-13-2025 Radiology Diagnostic study note [facility] Imaging Services [address] [place], [place] [address] STROKE CTA Head AND Neck W/Con MR#: [id number] Acct: [id number] Name: EZRA GONZALEZ Rep #: [id number] : 1935 F 89 From: Jian Gipson MD PCP: Dr. Kvng Ochoa, DO Status: REG ER Study:STROKE CTA Head AND Neck W/Con Date of Exam: 09/10/24 Exam# [id number] Ordering Dr: Adeel Garcia DO PROCEDURE: STROKE [...] RIGHT Vertebral: Unremarkable. LEFT Vertebral: Unremarkable. Anatomy: [place] anatomy is normal. Aneurysm or [...] 3:01 pm with readback verification. Reading Location: [id number] CC: Dr. Teri Garcia DO; Dr. Kvng Ochoa DO ~ [employer] Assistant Teacher: Signed [facility]06-13-2025 Radiology Diagnostic study note [facility] Imaging Services [address] [place], [place] [address] STROKE Brain/Head without Cont MR#: [id number] Acct: [id number] Name: EZRA GONZALEZ Rep #: [id number] : 1935 F 89 From: Jian Gipson MD PCP: Dr. Kvng Ochoa DO Status: REG ER Study:STROKE Brain/Head without Cont Date of Exam: 09/10/24 Exam# [id number] Ordering Dr: Adeel Garcia DO PROCEDURE: STROKE [...] 2:05 pm with readback verification. Reading Location: [id number] CC: Dr. Teri Garcia DO; Dr. Kvng Ochoa DO ~ [employer] Assistant Teacher: Signed [facility]06-11-2025 Discharge summary [facility] Medical Records Department [address] [place] [address] Emergency Department Summary 09/08/24 MR#: [id number] Acct: [id number] Name: EZRA GONZALEZ Rep #:[id number] : 1935 89 From: Anoop Blackmon MD PCP: Dr. 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 Glucose is slight [id number] with a normal CO2 anion gap. Labs: Laboratory Results - last 24 hr 09/08/24 12:50 WBC 13.6 H RBC 4.40 Hgb 13.8 Hct 41.4 MCV 94.1 MCH 31.4 MCHC 33.3 RDW Std Deviation 45.2 H RDW Coeff of Sumeet 13.2 Plt Count 326 MPV 10.8 Immature Gran % (Auto) 0.400 Neut % (Auto) 75.9 H Lymph % (Auto) 16.2 L [place] % (Auto) 6.6 Eos % (Auto) 0.7 [...] Instructions: or as directed Primary Care Provider: Kvng Ochoa Referrals: Anant Juarez MD [Non-Staff -Ordering Privileges] - 3-5 Days Kvng Ochoa MD [Primary Care Provider] - As Needed Activity Restrictions/Additional Instructions: Will need to follow-up Lamictal level since it is a send out. Recommend follow- up appointment with her neurologist Dr. Juarez Print Language: [place]ican Disposition Disposition: Home, Self Care What to do if you have Problems For any increased pain, shortness of breath, bleeding, nausea or vomiting, chestpain, or any unexpected problems, contact your Primary Care Provider. Call [facility] ([phone]) or report tothe closest Emergency Room. Call 911 if necessary. 09/08/24 1516 Cosigner Signature (if applicable): CC: Dr. Kvng Ochoa MD ~ Signed [facility]06-11-2025 Discharge summary Author Anoop Blackmon [facility] Note Date/Time September 08, 2024 3:16 pm [facility] Medical Records Department [address] [place] [address] Emergency Department Summary 09/08/24 MR#: [id number] Acct: [id number] Name: EZRA GONZALEZ Rep #:[id number] : 1935 89 From: Anoop Blackmon MD PCP: Dr. Kvng Ochoa MD Status:REG ER Location: ED HPI [...] His most recent 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 Glucose is slight [id number] with a normal CO2 anion gap. Labs: Laboratory Results - last 24 hr 09/08/24 12:50 WBC 13.6 H RBC 4.40 Hgb 13.8 Hct 41.4 MCV 94.1 MCH 31.4 MCHC 33.3 RDW Std Deviation 45.2 H RDW Coeff of Sumeet 13.2 Plt Count 326 MPV 10.8 Immature Gran % (Auto) 0.400 Neut % (Auto) 75.9 H Lymph % (Auto) 16.2 L [place] % (Auto) 6.6 Eos % (Auto) 0.7 [...] Instructions: or as directed Primary Care Provider: Kvng Ochoa Referrals: Anant Juarez MD [Non-Staff -Ordering Privileges] - 3-5 Days Kvng Ocoha MD [Primary Care Provider] - As Needed Activity Restrictions/Additional Instructions: Will need to follow-up Lamictal level since it is a send out. Recommend follow- up appointment with her neurologist Dr. Juarez Print Language: [place]ican Disposition Disposition: Home, Self Care What to do if you have Problems For any increased pain, shortness of breath, bleeding, nausea or vomiting, chestpain, or any unexpected problems, contact your Primary Care Provider. Call [facility] ([phone]) or report to the closest Emergency Room. Call 911 if necessary. 09/08/24 4054 <Electronically signed by Anoop Blackmon MD> Cosigner Signature (if applicable): CC: Dr. Kvng Ochoa MD ~ Signed [facility] Work Phone: 1(403) 221-214404-03-2025 Evaluation note* Diagnosis Onset Date Resolution Status Admit Date Longstanding persistent atrial fibrillation acute July 01, 10:35am Essential (primary) hypertension chronic July 01, 2024 10:35am History of coronary artery stent placement February 14, 2007 resolved July 01 10:35am [facility] Work Phone: 1(252) 537-836504-03-2025 Evaluation note* Diagnosis Onset Date Resolution Status Admit Date Longstanding persistent atrial fibrillation acute July 01 10:35am Essential (primary) hypertension chronic July 01, 2024 10:35am History of coronary artery stent placement February 14, 2007 resolved July 01 10:35am Difficulty with speech acute [facility] 2024 4:03pm [facility] Work Phone: [phone]) 142-931504-03-2025 Evaluation note* Diagnosis Onset Date Resolution Status Admit Date Longstanding persistent atrial fibrillation acute July 01 10:35am Essential (primary) hypertension chronic July 01, 2024 10:35am History of coronary artery stent placement February 14, 2007 resolved July 01 10:35am Difficulty with speech acute [facility] 2024 4:03pm 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 2:04pm [facility] Work Phone: 1(406) 169-266004-03-2025 Evaluation note* Diagnosis Onset Date Resolution Status Admit Date Longstanding persistent atrial fibrillation acute July 01 10:35am Essential (primary) hypertension chronic July 01, 2024 10:35am History of coronary artery stent placement February 14, 2007 resolved July 01, 025 10:35am Difficulty with speech resolved Ju 2024 4:03pm 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 2:04pm [facility] Work Phone: 1(136) 621-815902-10-2025 Evaluation note* Diagnosis Onset Date Resolution Status Admit Date Dementia acute May 10, 2024 2:34pm Epilepsy acute May 10, 2024 2:34pm Transient ischemic attack resolved May 10, 2024 2:34pm [facility] Work Phone: 1(656) 741-449202-10-2025 Evaluation note* Diagnosis Onset Date Resolution Status Admit Date Dementia acute May 10, 2024 2:34pm Epilepsy acute May 10, 2024 2:34pm Transient ischemic attack resolved May 10, 2024 2:34pm Longstanding persistent atrial fibrillation acute July 01, 025 10:35am Essential (primary) hypertension chronic July 01, 2024 10:35am History of coronary artery stent placement February 14, 2007 resolved July 01, 2024 10:35am [facility] Work Phone: 1(780) 319-855403-22-2024 NoteStart PACC Note Home Health Referral Educated patient on Home Care and services available. Patient offered choice of available HHC and agreeable to PT/OT services with [facility]. Care [...] is noted as yes - consider a SYSTEMS SPEC evaluation once the patient returns home. START PATIENT REGISTRATION INFORMATION Order Information Order Signing Physician: Connie Perez APRN * Service Ordered RN ?: No Service Ordered PT ?: Yes Service Ordered OT ?: Yes Service Ordered ST ?: No Service Ordered SYSTEMS SPEC?:No Service Ordered CHEMICAL ENGINEERING TECHNOLOGIST?: No Following Physician: ALEXANDRA HAGEN Following Physician Overseeing Physician: ALEXANDRA HAGEN (Required for Residents only) Agreeable to Follow? No Date/Time of Call 06/20/23 2:40 PM, Spoke with: LVM FOR OFFICE-CONFIRMED WITH JOSEP THIS IS HER PHYSICAN AND CAN SEE RECENT NOTES IN [facility] Care Coordination Same Day SOC?: No Primary Care Physician: ALEXANDRA HAGEN Primary Care Physician Primary Care Physician Address: [address] [place] [address] [address] / [facility] [id number] Visit Instructions: N/A Service Discharge Location Type: Assisted Living Service Facility Name: [facility] Service Floor Facility: N/A Service Room No: 105 Demographics Patient Last Name: Lisa Patient First Name: Ezra Language/Communication Barrier: NONE Service Address: [address] [place] [address] [address] Service City: [facility] ST: [place] Service ZIP: [address] Service (home) Other phone numbers: No relevant phone numbers on file. Emergency Contact: Extended Emergency Contact Information Primary Emergency Contact: GillesrodriguePatito Mobile Relation: Son Restaurant Greeter needed? No Secondary Emergency Contact: MariiadennisTy Mobile Relation: Son Admission Information Admit Date: 06/16/2023 Patient status at discharge: Inpatient Admitting Diagnosis: Closed displaced fracture of medial condyle of right humerus, initial encounter [S42.465Q] Caregiver Information Caregiver First Name: NA Caregiver Last Name: NA Caregiver Relationship to Patient NA Caregiver Phone Number: NA Caregiver Notes: N/A [employer] List No END PATIENT REGISTRATION INFORMATION Pt [...] medications. Discharge Date: 06/20/23 Referral Source-PACC: (Hospital/Unit): [facility] / E7-707/E7-707 A End PACC [facility]03-22-2024 History of Present illness Narrative* Juanjo Villalba RN - 06/20/2023 3:51 PM EDT Dc via DM cot to Josep MCARTHUR with all belongings * Juanjo Villalba RN - 06/20/2023 3:01 PM EDT Called report to Maryanne sage * Dc Lombardi - 06/20/2023 2:26 PM EDT [facility] Anticoagulation Management Service (RIA) Inpatient Warfarin Consult HPI: Ezra Gonzalez is a 87 y.o. female admitted on 06/16/2023 for Closed displaced fracture of medial condyle of right humerus, initial encounter [S42.841A] History reviewed. No pertinent past medical history. [...] patient can be classified as high risk ([id number] = 8). 2. Monitor for s/s of bleeding and drug interactions. Will adjust dose accordingly 3. RIA will manage while inpatient Dc Lombardi, JpD Candidate Jp BolanosD, BCPS RIA is available daily [phone] via [employer]. If no response on [facility] Chat then please page [phone]. * Shayne Fonseca MD - 06/20/2023 6:05 [...] off at this time. Please page resident electronics assembler and tester on Secure Chat with concerns or should [...] (Temporal) Resp 20 Ht 1.6 m (5' 2.99") Wt 78.9 kg (174 lb) SpO2 95% BMI 30.83 kg/m MSK exam: Right Upper Extremity: -Splint: clean/dry/intact -BCR to fingers -Sensation intact in all distributions -Motor function intact to AIN/PIN/Ulnar * Maryanne Neumann, PT - 06/19/2023 3:11 PM EDT Images from the original note were not included. PHYSICAL THERAPY [facility] Initial Evaluation Name/MRN: Ezra Gonzalez ([id number]) Evaluation Date: 06/19/2023 Date of : 1935 Admission Date: 06/16/2023 1:38 PM Age: 87 y.o. Room/Bed: E7-707/E770 A Discharge Recommendation: Home with Home health PT (return to [place]) Equipment Needed: No Assessment IMPRESSION: 87 y.o. pt admitted to [facility] for closed fracture RUE, s/p ORIF R humerus 06/17. They were Min A for bed mobility, Min A for transfers, and Min A for ambulation. Pt limited d/t balance. If from [place] where she can receive Min A for all ADLs and mobility. Would recommend return to [place] and [facility] PTat discharge. Diagnosis: closed fracture RUE, s/p [...] correction Ambulation Ambulation 1 Assistive device(s) used: CHEMICAL ENGINEERING TECHNOLOGIST Assist level: Min Assist Distance (ft): 15' [...] Code Treatment Minutes: (mod eval, 1 FA) Maryanne Neumann PT Patient's Physical Therapy Plan of Care supervision is transferred to a [facility] Physical Therapist. Goals and/or treatment plan was established in collaboration with patient/family/other representatives. * Enedelia Sanches [facility] - 06/19/2023 1:50 PM EDT [facility] Anticoagulation Management Service (RIA) Inpatient Warfarin Consult [...] patient can be classified as high risk ([id number] = 8). 2. Monitor for s/s of bleeding and drug interactions. Will adjust dose accordingly 3. RIA will manage while inpatient Dc Lombardi, PharmD Candidate Toshia Sanches, PharmD, BCPS RIA is available daily [phone] via [employer]. If no response on [facility] Chat then please page [phone]. * Kavon Diallo OT - 06/19/2023 11:54 AM EDT Images from the original note were not included. OCCUPATIONAL THERAPY [facility] Initial Evaluation Name/MRN: Ezra Gonzalez ([id number]) Evaluation Date: 06/19/2023 Date of : 1935 Admission Date: 06/16/2023 1:38 PM Age: 87 y.o. Room[facility]Bed: [facility] A Discharge Recommendation: Continue to [...] of Care supervision is transferred to a [facility] Occupational Therapist. Goals and/or treatment plan was established in collaboration with patient/family/other representatives. * oCnnie Perez, CASING SOAKER - BOXING INSPECTOR - 06/19/2023 9:52 AM EDT Images from [...] 10 11 LIVER PROFILE:No results for input(s): "AST", "ALT", "BILITOT", "ALKPHOS", "PROT" in the last 72 hours. No lab exists for component: "LABALBU" PT/INR: Recent Labs 06/16/23 1409 06/17/23 0604 PROTIME 22.3* 14.5* INR 2.2* 1.4* CARDIAC ENZYMES: No results for input(s): "TROPONINI" in the last 72 hours. Procalcitonin: Lab Results Component Value Date PROCAL 0.06 06/18/2023 COVID-19 PCR: No results for input(s): "COVID19" in the last 72 hours. Objective: Vitals: BP (!) 161/83 (BP Location: Left arm, Patient Position: Sitting) Pulse 85 Temp 36.3 C (97.4 F) (Temporal) Resp 16 Ht 5' 2.99" (1.6 m) Wt 174 lb (78.9 kg) [...] Emergency Contact: Patito Cuba Mobile Relation: Son Restaurant Greeter needed? No Secondary Emergency Contact: Ty [place] Mobile Relation: Son JANNETTE Hall CNP Division of Hospitalist Medicine [facility] * Huma Tavarez MD - [...] (Temporal) Resp 16 Ht 1.6 m (5' 2.99") Wt 78.9 kg (174 lb) SpO2 95% BMI 30.83 kg/m MSK exam: Right Upper Extremity: -Splint: clean/dry/intact -BCR to fingers -Sensation and motor exam limited 2/2 block intact * Ele Butcher - 06/18/2023 12:38 PM EDT Nutrition rescreen completed. Chart reviewed. Patient to be monitored and followed by the diet supply chain technician. NICA Watts * Louisa Cespedes OT - 06/18/2023 8:26 AM EDT Images from the original note were not included. OCCUPATIONAL THERAPY [facility] Name/MRN: Ezra Gonzalez ([id number]) Date: 06/18/2023 OT eval and treat order received. Patient chart reviewed. Per Ortho note, "Plan for ORIF od R distal humerus." Will hold evaluation till after surgery. Louisa Cespedes OT * Connie Perez APRN - SUZI - 06/18/2023 8:00 AM EDT Images from the original note were not included. Hospitalist Progress Note 06/18/2023 Subjective: Admit Date: 06/16/2023 PCP: No primary care provider on file. Room#: E7-817/E7-770 A BRIEF HOSPITAL COURSE: Ezra is a [...] 7 10 LIVER PROFILE:No results for input(s): "AST", "ALT", "BILITOT", "ALKPHOS", "PROT" in the last 72 hours. No lab exists for component: "LABALBU" PT/INR: Recent Labs 06/16/23 1409 06/17/23 0604 PROTIME 22.3* 14.5* INR 2.2* 1.4* CARDIAC ENZYMES: No results for input(s): "TROPONINI" in the last 72 hours. Procalcitonin: No results found for: "PROCAL" COVID-19 PCR: No results for input(s): "COVID19" in the last 72 hours. Objective: Vitals: BP 139/86 (BP Location: Left arm, Patient Position: Sitting) Pulse 93 Temp 36.9 C (98.4F) (Temporal) Resp 16 Ht 5' 2.99" (1.6 m) Wt 174 lb (78.9 kg) [...] Emergency Contact: Patito [place] Mobile Relation: Son Restaurant Greeter needed? No Secondary Emergency Contact: Ty [place] Mobile Relation: Son Connie Perez APRN - [facility] Division of Hospitalist Medicine writewith [facility] * Maryanne Neumann PT - 06/18/2023 7:27 AM EDT Images from the original note were not included. PHYSICAL THERAPY [facility] Name/MRN: Ezra Gonzalez ([id number]) Date: 06/18/2023 PT orders received and chart reviewed. Per ortho note, "Plan for ORIF R distal humerus". Will hold and attempt following surgery. Maryanne [...] (Temporal) Resp 16 Ht 1.6 m (5' 3") Wt 78.9 kg (174 lb) SpO2 95% BMI 30.82 kg/m MSK exam: Right Upper Extremity: -Dressing: clean/dry/intact -TTP: Elbow -BCR to fingers -SILT in radial/median/ulnar/axillary nerve distributions -Motor + AIN/PIN/ulnar nerve functions * Evette Viera MD - 06/17/2023 3:55 PM EDT Due to OR availability, case cancelled for today. Moved to tomorrow, 06/17. Ok for diet today. NPO @[place]. Keep splint C/D/I. Evette Viera MD Orthopaedic Surgery, PGY-5 [phone] * Connie Perez, CASING SOAKER - BOXING INSPECTOR - 06/17/2023 7:46 AM EDT Images from [...] ANIONGAP 7 LIVER PROFILE:No results for input(s): "AST", "ALT", "BILITOT", "ALKPHOS", "PROT" in the last 72 hours. No lab exists for component: "LABALBU" PT/INR: Recent Labs 06/16/23 1409 06/17/23 0604 PROTIME 22.3* 14.5* INR 2.2* 1.4* CARDIAC ENZYMES: No results for input(s): "TROPONINI" in the last 72 hours. Procalcitonin: No results found for: "PROCAL" COVID-19 PCR: No results for input(s): "COVID19" in the last 72 hours. Objective: Vitals: BP 120/77 Pulse 88 Temp 36.7 C (98.1 F) (Oral) Resp 24 Ht 5' 3" (1.6 m) Wt 174 lb(78.9 kg) SpO2 [...] Emergency Contact: Patito [place] Mobile Relation: Son Restaurant Greeter needed? No Secondary Emergency Contact: Ty [place] Mobile Relation: Son JANNETTE Hall CNP Division of Hospitalist Medicine [facility] * Shayne Fonseca MD - [...] (Oral) Resp 16 Ht 1.6 m (5' 3") Wt 78.9 kg (174 lb) SpO2 97% BMI 30.82 kg/m MSK exam: Right Upper Extremity: -Dressing: clean/dry/intact -TTP: Elbow -BCR to fingers -SILT in radial/median/ ulnar nerve distributions -Motor + AIN/PIN/ulnar nerve functions documented in this [facility]03-22-2024 Miscellaneous Notes* Care Coordination - Unknown Case Management - 06/20/2023 2:58 PM EDT Patient Choice Patient Name: EZRA GONZALEZ Date of : 1935 All Providers Sent Referral Name: [facility] Phone: [phone] Address: [address] [place] [address] * Home Care - Vivian Bills RN - 06/20/2023 2:40 PM EDT Start PACC Note Home Health Referral Educated patient on Home Care and services available. Patient offered choice of available HHC and agreeable to PT/OT services with [facility] - Home Care. Care Types: [...] is noted as yes - consider a SYSTEMS SPEC evaluation once the patient returns home. START PATIENT REGISTRATION INFORMATION Order Information Order Signing Physician: Connie Perez APRN * Service Ordered RN ?: No Service Ordered PT ?: Yes Service Ordered OT ?: Yes Service Ordered ST ?: No Service Ordered SYSTEMS SPEC?:No Service Ordered CHEMICAL ENGINEERING TECHNOLOGIST?: No Following Physician: ALEXANDRA HAGEN Following Physician Overseeing Physician: ALEXANDRA HAGEN (Required for Residents only) Agreeable to Follow? No Date/Time of Call 06/20/23 2:40 PM, Spoke with: LVM FOR OFFICE-CONFIRMED WITH FIDEMUKUL THIS IS HERPHYSICAN AND CAN SEE RECENT NOTES IN [facility] Care Coordination Same Day SOC?: No Primary Care Physician: ALEXANDRA HAGEN Primary Care Physician Primary Care Physician Address: [address] [place] [address] [address] / [facility] [address] Visit Instructions: N/A Service Discharge Location Type: Assisted Living Service Facility Name: [facility] Service Floor Facility: N/A Service Room No: 105 Demographics Patient Last Name: Lisa Patient First Name: Ezra Language/Communication Barrier: NONE Service Address: [address] [place] [address] [address] Service City: [facility] ST: [place] Service ZIP: [address] Service (home) Other phone numbers: No relevant phone numbers on file. Emergency Contact: Extended Emergency Contact Information Primary Emergency Contact: Patito [place] Mobile Relation: Son Restaurant Greeter needed? No Secondary Emergency Contact: Ty [place] Mobile Relation: Son Admission Information Admit Date: 06/16/2023 Patient status at discharge: Inpatient Admitting Diagnosis: Closed displaced fracture of medial condyle of right humerus, initial encounter [S42.601N] Caregiver Information Caregiver First Name: NA Caregiver Last Name: NA Caregiver Relationship to Patient NA Caregiver Phone Number: NA Caregiver Notes: N/A Cloud[employer] List No END PATIENT REGISTRATION INFORMATION Pt [...] medications. Discharge Date: 06/20/23 Referral Source-PACC: (Hospital/Unit): [facility] / E7-707/E7-707 A End PACC Note [...] transportation, explained SW provided pt insurance to [facility] and there pay be a separate bill. Pt had no questions for SW. Helped pt order lunch. Notified JAYME ELIZALDE and special investigation unit investigator. . * Care Coordination - Shikha Gray RN - 06/20/2023 11:01 AM EDT I SPOKE WITH DONOVAN, PLANT AND EQUIPMENT WORKER AT [facility]. THEY CAN TAKE PT BACK TODAY. THEY CAN PROVIDE TRANSPORTATION BACK TO FACILITY AROUND 3 PM. AWARE PT WILL NEED PT AT FACILITY, THEY USE [facility], DID LET HC LIAISON NOW. WENT TO [...] PM EDT Date: 06/16/2023 - 06/18/2023 Location: [facility] OR Name: Ezra Gonzalez : 1935, Diagnosis Pre-op Diagnosis * Closed displaced fracture of medial condyle of right humerus, initial encounter [S42.241A] Post-op Diagnosis * Closed displaced fracture of medial condyle of right humerus, initial encounter [S42460F] Procedures OPEN REDUCTION INTERNAL FIXATION RIGHT DISTAL HUMERUS 17950 - [place] [employer]X HUMERAL SHFT FX W/PLATE/SCREWS W/WOCERCLAGE Surgeons * Benitez Givens - Primary Procedure Summary Anesthesia: * No anesthesia type entered * ASA: III Estimated Blood Loss: Minimal Drains: * None in log * Staff: Jira Developer: Vivian Herrera RN Scrub Person: Linda Alvarez [...] Limits Permission given to speak with patient volunteer patient representative/caregiver as indicated: No Confirmation of Payer with patient/family: Yes Payer Name: [facility] Falls: No Confirmation of Primary Care Physician: Confirmed [...] rest and pain control documented in this [facility]03-22-2024 Note* Care Coordination - Unknown Case Management - 06/20/2023 2:58 PM EDT Patient Choice Patient Name: EZRA GONZALEZ Date of : 1935 All Providers Sent Referral Name: [facility] Phone: [phone] Address: [address] [place] [address] [facility] [id number] Note* Care Coordination - Unknown Case Management - 06/20/2023 2:58 PM EDT Patient Choice Patient Name: EZRA GONZALEZ Date of : 1935 All Providers Sent Referral Name: [facility] Phone: [phone] Address: [address] [place] [address] [facility] [id number] Note* Home Care - Vivian Bills RN - 06/20/2023 2:40 PM EDT Start PACC Note Home Health Referral Educated patient on Home Care and services available. Patient offered choice of available HHC and agreeable to PT/OT services with [facility] - Home Care. Care [...] is noted as yes - consider a SYSTEMS SPEC evaluation once the patient returns home. START PATIENT REGISTRATION INFORMATION Order Information Order Signing Physician: Connie Perez APRN * Service Ordered RN ?: No Service Ordered PT ?: Yes Service Ordered OT ?: Yes Service Ordered ST ?: No Service Ordered SYSTEMS SPEC?:No Service Ordered CHEMICAL ENGINEERING TECHNOLOGIST?: No Following Physician: ALEXANDRA HAGEN Following Physician Overseeing Physician: ALEXANDRA HAGEN (Required for Residents only) Agreeable to Follow? No Date/Time of Call 06/20/23 2:40 PM, Spoke with: BRYAN FOR OFFICE-[facility] THIS IS HERPHYS[place] AND CAN SEE RECENT NOTES IN [facility] Care Coordination Same Day SOC?: No Primary Care Physician: ALEXANDRA HAGEN Primary Care Physician Primary Care Physician Address: [address] [place] [address] [address] / [facility] [address] Visit Instructions: N/A Service Discharge Location Type: Assisted Living Service Facility Name: [facility] Floor Facility: N/A Service Room No: 105 Demographics Patient Last Name: Lisa Patient First Name: Ezra Language/Communication Barrier: NONE Service Address: [address] [place] [address] [address] Service City: [facility] ST: [place] Service ZIP: [address] Service (home) Other phone numbers: No relevant phone numbers on file. Emergency Contact: Extended Emergency Contact Information Primary Emergency Contact: Patito [place] Mobile Relation: Son Restaurant Greeter needed? No Secondary Emergency Contact: Ty [place] Mobile Relation: Son Admission Information Admit Date: 06/16/2023 Patient status at discharge: Inpatient Admitting Diagnosis: Closed displaced fracture of medial condyle of right humerus, initial encounter [S47.865O] Caregiver Information Caregiver First Name: NA Caregiver Last Name: NA Caregiver Relationship to Patient NA Caregiver Phone Number: NA Caregiver Notes: N/A [employer] List No END PATIENT REGISTRATION INFORMATION [...] medications. Discharge Date: 06/20/23 Referral Source-PACC: (Hospital/Unit): [facility] / E7-707/E7-707 A End PACC Note [facility] [id number] Note* Home Care - Vivian Bills RN - 06/20/2023 2:40 PM EDT Start PACC Note Home Health Referral Educated patient on Home Care and services available. Patient offered choice of available HHC and agreeable to PT/OT services with [facility] - Home Care. Care Types: [...] is noted as yes - consider a SYSTEMS SPEC evaluation once the patient returns home. START PATIENT REGISTRATION INFORMATION Order Information Order Signing Physician: Connie Perez APRN * Service Ordered RN ?: No Service Ordered PT ?: Yes Service Ordered OT ?: Yes Service Ordered ST ?: No Service Ordered SYSTEMS SPEC?:No Service Ordered CHEMICAL ENGINEERING TECHNOLOGIST?: No Following Physician: ALEXANDRA HAGEN Following Physician Overseeing Physician: ALEXANDRA HAGEN (Required for Residents only) Agreeable to Follow? No Date/Time of Call 06/20/23 2:40 PM, Spoke with: BRYAN FOR OFFICE-CONFIRMED WITH [facility] THIS IS HERPHYS[place] AND CAN SEE RECENT NOTES IN [facility] Care Coordination Same Day SOC?: No Primary Care Physician: ALEXANDRA HAGEN Primary Care Physician Primary Care Physician Address: [address] [facility] [address] / [facility] [address] Visit Instructions: N/A Service Discharge Location Type: Assisted Living Service Facility Name: [facility] Service Floor Facility: N/A Service Room No: 105 Demographics Patient Last Name: Lisa Patient First Name: Ezra Language/Communication Barrier: NONE Service Address: [address] [facility] [address] Service City: [facility] ST: [place] Service ZIP: [address] Service (home) Other phone numbers: No relevant phone numbers on file. Emergency Contact: Extended Emergency Contact Information Primary Emergency Contact: Patito [place] Mobile Relation: Son Restaurant Greeter needed? No Secondary Emergency Contact: Ty [place] Mobile Relation: Son Admission Information Admit Date: 06/16/2023 Patient status at discharge: Inpatient Admitting Diagnosis: Closed displaced fracture of medial condyle of right humerus, initial encounter [S42.649W] Caregiver Information Caregiver First Name: NA Caregiver [...] medications. Discharge Date: 06/20/23 Referral Source-PACC: (Hospital/Unit): [facility] / E7-707/E7-707 A End PACC Note [facility] [id number] NoteHospitalist Discharge Summary Ezra Gonzalez : 1935 [...] (97.4 ?F) (Temporal) Resp 20 Ht 5' 2.99" (1.6 m) Wt 174 lb (78.9 kg) [...] primary care provider Schedule (more content not included)...[facility]03-22-2024 Note* Care Coordination - SELINA Magaña - [...] separate bill. Pt had no questions for . Helped pt order lunch. Notified TONIO, RN and special investigation unit investigator. . [facility] [id number] Note* Care Coordination - SELINA Magaña - 06/20/2023 11:16 AM EDT TONIO updated SW, pt is requesting COT transport [...] pt order lunch. Notified TONIO, RN and special investigation unit investigator. . [facility] [id number] Note* Care Coordination - Shikha Gray RN - 06/20/2023 11:01 AM EDT I SPOKE WITH DONOVAN, PLANT AND EQUIPMENT WORKER AT [facility]. THEY CAN TAKE PT BACK TODAY. THEY CAN PROVIDE TRANSPORTATION BACK TO FACILITY AROUND 3 PM. AWARE PT WILL NEED PT AT FACILITY, THEY USE [facility], DID LET HC LIAISON NOW. WENT TO [...] SECURE CHAT WITH CONNIE PEREZ REGARDING THIS. [facility] [id number] Note* Care Coordination - Shikha Gray RN - 06/20/2023 11:01 AM EDT I SPOKE WITH DONOVAN, PLANT AND EQUIPMENT WORKER AT [facility]. THEY CAN TAKE PT BACK TODAY. THEY CAN PROVIDE TRANSPORTATION BACK TO FACILITY AROUND 3 PM. AWARE PT WILL NEED PT AT FACILITY, THEY USE [employer] [facility], DID LET HC LIAISON NOW. WENT [...] SECURE CHAT WITH CONNIE PEREZ REGARDING THIS. [facility] [id number] Hospital course Narrative* Connie Perez APRN - BOXING INSPECTOR - 06/20/2023 10:18 AM EDT Images from [...] (97.4 F) (Temporal) Resp 20 Ht 5' 2.99" (1.6 m) Wt 174 lb (78.9 kg) [...] as possible for a visit As needed [facility] Go to Appointment scheduled 06/26/23 at 10:[address] Givens. [address] [facility] Complexity of Follow up: [x] Moderate Complexity: follow up within 7-14 calendar days (81879) [] Severe Complexity: follow up within 7 calendar days (89611) Follow up Testing, Pending results or Referrals [...] time frame. Signed: Connie Perez APRN - [facility] 06/20/2023, 1:11 PM documented in this [facility]03-22-2024 [facility] of Orthopedic Surgery Progress Note ASSESSMENT AND [...] off at this time. Please page resident electronics assembler and tester on Secure Chat with concerns or should [...] (Temporal) Resp 20 Ht 1.6 m (5' 2.99") Wt 78.9 kg (174 lb) SpO2 95% BMI 30.83 kg/m? MSK exam: Right Upper Extremity: -Splint: clean/dry/intact -BCR to fingers -Sensation intact in all distributions -Motor function intact to AIN/PIN/UlnarMarshfield Medical Center03-21-2024 Note PHYSICAL THERAPY [facility] Initial Evaluation Name/MRN: Ezra Gonzalez ([id number]) Evaluation Date: 06/19/2023 Date of : 1935 Admission Date: 06/16/2023 1:38 PM Age: 87 y.o. Room/Bed: E7-707/E7-707 A Discharge Recommendation: Home with Home health PT (return to [place]) Equipment Needed: No Assessment IMPRESSION: 87 y.o. pt admitted to [facility] for closed fracture RUE, s/p ORIF R humerus 06/17. They were Min A for bed mobility, Min A for transfers, and Min A for ambulation. Pt limited d/t balance. If from [place] where she can receive Min A for all ADLs and mobility. Would recommend return to [place] [facility] PT at discharge. Diagnosis: closed fracture RUE, [...] correction Ambulation Ambulation 1 Assistive device(s) used: CHEMICAL ENGINEERING TECHNOLOGIST Assist level: Min Assist Distance (ft): 15' [...] Raw Score (No Stairs) : 18 [facility] Score: Walked 25 ft or more [...] eval, 1 FA) Dillon (more content not included)...[facility]03-21-2024 Note* Care Coordination - Shikha Gray RN - 06/19/2023 2:05 PM EDT DAY #1 S/P ORIF OF RIGHT ARM. WAITING FOR PT/OT EVALS FOR DC PLANNING. [facility] CenterKjcrlx81-45-3864 Note* Care Coordination - Shikha Gray RN - 06/19/2023 2:05 PM EDT DAY #1 S/P ORIF OF RIGHT ARM. WAITING FOR PT/OT EVALS FOR DC PLANNING. [facility] CenterCnbvnz22-08-0518 NoteOCCUPATIONAL THERAPY [facility] Initial Evaluation Name/MRN: Ezra Gonzalez ([id number]) Evaluation Date: 06/19/2023 Date of : 1935 Admission Date: 06/16/2023 1:38 PM Age: 87 y.o. Room[facility]Bed: [facility]707/[facility] A Discharge Recommendation: Continue to assess pending [...] 06/19/23 Expected End: 07/17/23 (more content not included)...[facility]03-21-2024 Note Hospitalist Progress Note 06/19/2023 Subjective: Admit Date: 06/16/2023 PCP: No primary care provider on file. Room#: E7-957/-785 A BRIEF HOSPITAL COURSE: Ezra is a [...] Eating and drinking fair, looking forward to PA. Understands likely not back to [place] as [...] 10 11 LIVER PROFILE:No results for input(s): "AST", "ALT", "BILITOT", "ALKPHOS", "PROT" in the last 72 hours. No lab exists for component: "LABALBU" PT/INR: Recent Labs 06/16/23 1409 06/17/23 0604 PROTIME 22.3* 14.5* INR 2.2* 1.4* CARDIAC ENZYMES: No results for input(s): "TROPONINI" in the last 72 hours. Procalcitonin: Lab Results Component Value Date PROCAL 0.06 06/18/2023 COVID-19 PCR: No results for input(s): "COVID19" in the last 72 hours. Objective: Vitals: BP (!) 161/83 (BP Location: Left arm, Patient Position: Sitting) Pulse 85 Temp 36.3 ?C (97.4 ?F) (Temporal) Resp 16 Ht 5' 2.99" (1.6 m) Wt 174 lb (78.9 kg) [...] Full Code Anticipated Dischar (more content not included)...[facility] 06-19-2023 [facility]part[facility] of Orthopedic Surgery Progress Note ASSESSMENT AND [...] indicated from ortho standpoint -Follow-up with Dr iGvens in 2 weeks -Ortho to follow. SUBJECTIVE: Block still intact. Had difficulty sleeping overnight. Denies new numbness and tingling. Pain well-controlled. OBJECTIVE: General: A&O x3, in no acute distress, and awake VITALS: BP (!) 161/83 (BP Location: Left arm, Patient Position: Sitting) Pulse 85 Temp 36.3 ?C (97.4 ?F) (Temporal) Resp 16 Ht 1.6 m (5' 2.99") Wt 78.9 kg (174 lb) SpO2 95% BMI 30.83 kg/m? MSK exam: Right Upper Extremity: -Splint: clean/dry/intact -BCR to fingers -Sensation and motor exam limited 2/2 block [facility] 06-18-2023 NotePatient: Ezra Gonzalez Procedure Summary Date: 06/18/23 Room / Location: [address] Operating Room Anesthesia Start: 1541 Anesthesia [...] regional Vitals Value Taken Time BP 116/67 06/18/23 1913 Temp 97.3 06/18/23 1921 Pulse 83 06/18/231919 Resp 18 06/18/231920 SpO2 [...] discharged once all PACU criteria has been met.[facility]03-20-2024 NotePatient: Ezra Gonzalez Procedure Summary Date: 06/18/23 Room / Location: [address] Operating Room Anesthesia Start: 1541 Anesthesia [...] Taken Time BP 116/67 06/18/231912 Temp 97.3 06/18/23 192 Pulse 79 06/18/231918 Resp 18 06/18/231920 SpO2 [...] Allowed opportunity for questions and acknowledgement of understanding.[facility]03-20-2024 Note* Perioperative Nursing Note - Irina Khan RN - 06/18/2023 8:11 PM EDT Pt states no need to contact family. RN on floor states she will call pt's son,. [facility] [id number] Note* Perioperative Nursing Note - Irina Khan RN - 06/18/2023 8:11 PM EDT Pt states no need to contact family. RN on floor states she will call pt's son,. [facility] CenterEkzomr23-81-6978 NoteAirway Date/Time: 06/18/2023 3:56 PM Urgency: scheduled General Information and Staff Patient location during procedure: Procedural Resident/NURSE: Sae Lora CRNA Performed: NURSE Indications and Patient Condition Indications for airway [...] 21 Number of attempts at approach: [address] [place], [place] [address]-20-2024 Note Peripheral IV Date/Time: 06/18/2023 4:00 PM Inserted by: JANNETTE Ivey CRNA Placement Needle size: 20 G Laterality: left Location: upper arm. Local anesthetic: none Site prep: alcohol Technique: ultrasound guided Attempts: [address] [place], [place] [address]-20-2024 NotePeripheral Block Time Out: 06/18/2023 3:28 PM Patient location during procedure: Procedural Start time: 06/18/2023 3:28 PM End time: 06/18/2023 3:32 PM Reason for block: at surgeon's request and post-op pain management Staffing Performed: WAQAS Resident/NURSE: JANNETTE Ivey CRNA Preanesthetic Checklist Completed: patient [...] No paresthesias reported by patient during injectionMedications uyvCSXVMakuqb-uttferzbctd-ekglmqnubqi (TAP) syringe - Injection 30 mL - 06/18/2023 3:28:00 [facility] [id number] NotePatient: Ezra Gonzalez Procedure Information Date/Time: 06/18/23 1530 Procedure: OPEN REDUCTION INTERNAL FIXATION RIGHT DISTAL HUMERUS (Right: Arm Upper) - requesting 330, if can't go at 330 will consider friday Location[facility] OR [address] [place] [address] Operating Room Surgeons: Benitez Givens MD Relevant [...] by: Thong Francois DO on 06/17/2023 6:[address] [facility] 06-18-2023 Hospital Discharge instructions* Discharge Instructions* [...] Emergency Contact: Patito Cuba Mobile Relation: Son Restaurant Greeter needed? No Secondary Emergency Contact: Ty [place] [...] (97.4 F) (Temporal) Resp 20 Ht 5' 2.99" (1.6 m) Wt 174 lb (78.9 kg) SpO2 95% BMI 30.83 kg/m Last documented pain score (0-10 scale): Last Weight: Wt Readings from Last 1 Encounters: 06/17/23 174 lb (78.9 kg) Mental Status: {MITCHEL Patient Mental Status:69847} IV Access: {MITCHEL IV Access:41116} Nursing Mobility/ADLs: Walking {MALLY ADL:::"Independent"} Transfer {MALLY ADL:::"Independent"} Bathing {MALLY ADL:::"Independent"} Dressing {MALLY ADL:::"Independent"} Toileting {MALLY ADL:::"Independent"} Feeding {MALLY ADL:::"Independent"} Compressor Station Engineer {MALLY ADL:::"Independent"} Med Delivery {yes/no:53353} Wound Care Documentation and Therapy: Wound/Incision 06/18/23 Incision Arm Anterior;Right;Upper (Active) Site Assessment Clean;Dry 06/19/232147 Treatments Sling 06/19/232147 Primary Dressing Xeroform 06/19/23 1024 Dressing Status Clean, dry & intact 06/19/232147 Number of days: 1 Elimination: Continence: Bowel: {yes/no:98426} Bladder: {yes/no:19712} Urinary Catheter: {MITCHEL Urinary Catheter:67830} Colostomy/Ileostomy/Ileal Conduit: {YES / NO:} Date of Last BM: No intake or output data in the 24 hours ending 06/20/23 1025 I/O last 3 completed shifts: In: 711 (9 mL/kg) [P.O.:280; I.V.:114 (1.4 mL/kg); IV Piggyback:317] Out: 600 (7.6 mL/kg) [Urine:350 (0.1 mL/kg/hr); Blood:250] Weight: 78.9 kg Safety Concerns: {MITCHEL Safety Concerns:24147} Impairments/Disabilities: {MITCHEL Impairments/Disabilities:74310} Nutrition Therapy: Current Nutrition Therapy: {MITCHEL Diet List:30294} Routes of Feeding: {routes of feedin} Liquids: {liquid consistency:10888} Daily Fluid Restriction: {daily fluid restriction:81752} Last Modified Barium Swallow with Video (Video Swallowing Test): {done not done:91939} Treatments at the Time of Hospital Discharge: Respiratory Treatments: Oxygen Therapy: {Therapy; copd oxygen:41221} Ventilator: {MITCHEL Ventilator:41177} Rehab Therapies: {GEN THERAPY DISCIPLINE SCAL:7219052} Weight Bearing Status/Restrictions: {POD WEIGHT BEARIN} Other Medical Equipment (for information only, NOT a DME order): {Assistive Devices DME:13620} Other Treatments: Patient's personal belongings (please select all that are sent with patient): {MITCHEL Patient Belongings:91060} RN SIGNATURE: {E-signature:63336} CASE MANAGEMENT/SOCIAL WORK SECTION Inpatient Status Date: 06/16/23 Readmission Risk Assessment Score: @READMISSIONRISKDETAILS@ Discharging to Facility/ Agency Discharging to Facility/ Agency Name: [facility] Address: [address] [place] [address] Name: [facility] Address:[address] [place] [address] ~28.4 mi Fax: Dialysis Facility (if applicable) Name: Address: Dialysis Schedule: Phone: Fax: Svp Monetization/High Climber signature: ICIAN SECTION Prognosis: good Condition at [...] in H&P PHYSICIAN SIGNATURE: documented in this [facility]03-20-2024 Note* Brief Op Note - Lexa Aparicio MD - 06/18/2023 3:42 PM EDT Date: 06/16/2023 - 06/18/2023 Location: [facility] OR Name: Ezra Gonzalez, : 1935, Diagnosis Pre-op Diagnosis * Closed displaced fracture of medial condyle of right humerus, initial encounter [S42.461A] Post-op Diagnosis * Closed displaced fracture of medial condyle of right humerus, initial encounter [S42.461A] Procedures OPEN REDUCTION INTERNAL FIXATION RIGHT DISTAL HUMERUS 31187 - [place] OPTX HUMERAL SHFT FX W/PLATE/SCREWS W/WOCERCLAGE Surgeons * Benitez Givens - Primary Procedure Summary Anesthesia: * No anesthesia type entered * ASA: III Estimated Blood Loss: Minimal Drains: * None in log * Staff: Jira Developer: Vivian Herrera RN Scrub Person: Linda Alvarez [...] Givens in 2 weeks -Ortho to follow. [employer] Work Phone: 1(512) 706-277503-20-2024 Note* Brief Op Note - Lexa Aparicio MD - 06/18/2023 3:42 PM EDT Date: 06/16/2023 - 06/18/2023 Location: [facility] OR Name: Ezra Gonzalez, : 1935, Diagnosis Pre-op Diagnosis * Closed displaced fracture of medial condyle of right humerus, initial encounter [S42.619G] Post-op Diagnosis * Closed displaced fracture of medial condyle of right humerus, initial encounter [L02.952Y] Procedures OPEN REDUCTION INTERNAL FIXATION RIGHT DISTAL HUMERUS 78425 - [place] OPTX HUMERAL SHFT FX W/PLATE/SCREWS W/WOCERCLAGE Surgeons * Benitez Givens - Primary Procedure Summary Anesthesia: * No anesthesia type entered * ASA: III Estimated Blood Loss: Minimal Drains: * None in log * Staff: Jira Developer: Vivian Herrera RN Scrub Person: Linda Alvarez [...] Givens in 2 weeks -Ortho to follow. [facility] [employer] Work Phone: [phone] Note* Perioperative Nursing Note - Deisy Gonzalez RN - 06/18/2023 3:29 PM EDT Patients wallet and watch locked up with security. OR notified patient states she has latex allergy Patients [id number] Note* Perioperative Nursing Note - Deisy Gonzalez RN - 06/18/2023 3:29 PM EDT Patients wallet and watch locked up with security. OR notified patient states she has latex allergy Patients [id number] Note* Care Coordination - Shikha Gray RN - 06/18/2023 1:03 PM EDT Care Managment Initial Assessment Date: 06/18/2023 Patient Name: Ezra Gonzalez : 1935 Patient Information Source of Information: Patient Cognition/Language: WFL - Within Functional Limits Permission given to speak with patient volunteer patient representative/caregiver as indicated: No Confirmation of Payer with patient/family: Yes Payer Name: [facility] : No Confirmation of Primary Care [...] WILL CONTINUE TO FOLLOW. Shikha Gray RN [id number] Note* Care Coordination - Shikha Gray RN - 06/18/2023 1:03 PM EDT Care Managment Initial Assessment Date: 06/18/2023 Patient Name: Ezra Gonzalez : 1935 Patient Information Source of Information: Patient Cognition/Language: WFL - Within Functional Limits Permission given to speak with patient volunteer patient representative/caregiver as indicated: No Confirmation of Payer with patient/family: Yes Payer Name: [facility] [place]: No Confirmation of Primary Care Physician: Confirmed [...] WILL CONTINUE TO FOLLOW. Shikha Gray RN [facility] [id number] NoteHospitalist Progress Note 06/18/2023 Subjective: Admit Date: 06/16/2023 PCP: No primary care provider on file. Room#: -537/-415 A BRIEF HOSPITAL COURSE: Ezra is a [...] 7 10 LIVER PROFILE:No results for input(s): "AST", "ALT", "BILITOT", "ALKPHOS", "PROT" in the last 72 hours. No lab exists for component: "LABALBU" PT/INR: Recent Labs 06/16/23 1409 06/17/23 0604 PROTIME 22.3* 14.5* INR 2.2* 1.4* CARDIAC ENZYMES: No results for input(s): "TROPONINI" in the last 72 hours. Procalcitonin: No results found for: "PROCAL" COVID-19 PCR: No results for input(s): "COVID19" in the last 72 hours. Objective: Vitals: BP 139/86 (BP Location: Left arm, Patient Position: Sitting) Pulse 93 Temp 36.9 ?C (98.4 ?F) (Temporal) Resp 16 Ht 5' 2.99" (1.6 m) Wt 174 lb (78.9 kg) [...] Emergency Contact: Patito [place] Mobile Relation: Son Restaurant Greeter needed? No Se (more content not included)...[facility]03-20-2024 Note Department of Orthopedic Surgery Progress Note [...] (Temporal) Resp 16 Ht 1.6 m (5' 3") Wt 78.9 kg (174 lb) SpO2 95% BMI 30.82 kg/m? MSK exam: Right Upper Extremity: -Dressing: clean/dry/intact -TTP: Elbow -BCR to fingers -SILT in radial/median/ulnar/axillary nerve distributions -Motor + AIN/PIN/ulnar nerve functionsMarshfield Medical Center03-19-2024 Plan of care note* Care Plan - Yvan Sepulveda RN - 06/17/2023 11:35 PM EDT The patient is Moderately Stable - Low risk of patient condition declining or worsening The patient's goals for the shift include rest and pain control The clinical goals for the shift include rest and pain control [facility] [id number] Nurse Note* Yvan Sepulveda RN - 06/17/2023 9:22 PM EDT Patient home medication list updated, provider made aware. [place] [id number] Nurse Note* Yvan Sepulveda RN - 06/17/2023 9:22 PM EDT Patient home medication list updated, provider made aware. documented in this [facility]03-19-2024 Emergency department Note* Di Reyna RN - 06/17/2023 11:52 AM EDT Patient resting in bed at this time, equal unlabored respirations noted and no acute distress, callbell within reach Di Reyna RN 06/17/23 1153 [facility] [id number] Emergency department Note* Di Reyna RN - [...] US IV line. Juanjo Pringle RN 06/16/23 4157 * NADIA Ruiz - 06/16/2023 12:38 PM EDT Images from the original note were not included. EMERGENCY DEPARTMENT ENCOUNTER Pt Name: Ezra Gonzalez Birthdate 1935 Date of evaluation: 06/16/2023 ED Provider: NADIA Ruiz CHIEF COMPLAINT Chief Complaint Patient presents with Arm Injury Pt arrives [facility] with complaints of [...] injury anywhere else. Patient was evaluated at [facility] emergency department prior to arrival and was noted to have a distal humerus fracture. Patient was transferred to [facility] ED for orthopedic consultation. Patient denies [...] Report Dictated on Electronically Signed By: Reji Leums MD Electronically Signed Date/Time: 06/16/2023 3:30 PM [...] Culture. Procedure Abnormality Status --------- ------ Complete Urinalysis[[id number]] Please view results for these tests on [...] kg (174 lb) Height: 1.6 m (5' 3") Medications HYDROmorphone (Dilaudid) injection 0.5 mg (0.5 mg IntraVENous Given 06/16/23 1508) ED care was supervised by Dr. Conde who independently examined and evaluated the patient. Please see their attestation note for further details. In brief, Ezra Gonzalez is a 87 y.o. female who presented to the emergency department for evaluation of a right arm injury. Patient was seen at [facility] prior to arrival was noted to have a distal humerus fracture. Patient transferred to [facility] ED for orthopedic consultation. Nursing notes [...] screen, x-ray right elbow. CT head from [place] ED -shows no signs of acute cranial abnormalities. CXR from [facility] ED prior to arrival -blunting of bilateral [...] 06/16/2023 12:38 PM EDT Emergency Department Encounter [facility] EMERGENCY DEPT Patient: Ezra Gonzalez : [...] for clarification.) Sae Conde MD Acute Care Audio [employer]ack Sae Conde MD 06/16/23 1951 documented in this [facility]03-19-2024 Emergency department Note* Alia Foster RN - 06/17/2023 10:00 AM EDT Pt O2 desaturating to mid 80s after receiving dilaudid IV. Pt placed on 2L NC and immediately back up to 95%. notified Alia Foster RN 06/17/23 1031 [facility] [id number] NoteHospitalist Progress Note 06/17/2023 Subjective: Admit Date: [...] does not feel safe going back to [place] at this [place]. Since patient staying ortho [...] ANIONGAP 7 LIVER PROFILE:No results for input(s): "AST", "ALT", "BILITOT", "ALKPHOS", "PROT" in the last 72 hours. No lab exists for component: "LABALBU" PT/INR: Recent Labs 06/16/23 1409 06/17/23 0604 PROTIME 22.3* 14.5* INR 2.2* 1.4* CARDIAC ENZYMES: No results for input(s): "TROPONINI" in the last 72 hours. Procalcitonin: No results found for: "PROCAL" COVID-19 PCR: No results for input(s): "COVID19" in the last 72 hours. Objective: Vitals: BP 120/77 Pulse 88 Temp 36.7 ?C (98.1 ?F) (Oral) Resp 24 Ht 5' 3" (1.6 m) Wt 174 lb (78.9 kg) [...] Emergency Contact: Patito [place] Mobile Relation: Son Restaurant Greeter needed? No Secondary Emergency Contact: Ty [place] Mobile Relation: Son Connie [facility]JANNETTE [facility] Division of Hospitalist Medicine [facility]03-19-2024 NoteDepartment of Orthopedic Surgery Progress Note [...] (Oral) Resp 16 Ht 1.6 m (5' 3") Wt 78.9 kg (174 lb) SpO2 97% BMI 30.82 kg/m? MSK exam: Right Upper Extremity: -Dressing: clean/dry/intact -TTP: Elbow -BCR to fingers -SILT in radial/median/ ulnar nerve distributions -Motor + AIN/PIN/ulnar nerve functionsMarshfield Medical Center03-18-2024 Emergency department Note* Juanjo Pringle RN - [...] US IV line. Juanjo Pringle RN 06/16/23 0971 [facility] [id number] NoteAttending History and Physical Admit Date: 06/16/2023 [...] does not feel safe going back to [place] at [place]. Since patient staying ortho [...] (98.1 ?F) (Oral) Resp 13 Ht 5' 3" (1.6 m) Wt 174 lb (78.9 kg) [...] ANIONGAP 7 LIVER PROFILE:No results for input(s): "AST", "ALT", "BILITOT", "ALKPHOS", "PROT" in the last 72 hours. No lab exists for component: "LABALBU" PT/INR: Recent Labs 06/16/23 1409 PROTIME 22.3* INR 2.2* CARDIAC ENZYMES: No results for input(s): "TROPONINI" in the last 72 hours. Procalcitonin: No results found for: "PROCAL" Urine Culture: No results found for this or any previous visit. COVID-19 PCR: No results for input(s): "COVID19" in the last 72 hours. I reviewed: [...] Pain control am labs, (more content not included)...[facility]03-18-2024 History and physical note* Jayshree Cortez MD [...] (98.1 F) (Oral) Resp 13 Ht 5' 3" (1.6 m) Wt 174 lb (78.9 kg) [...] ANIONGAP 7 LIVER PROFILE:No results for input(s): "AST", "ALT", "BILITOT", "ALKPHOS", "PROT" in the last 72 hours. No lab exists for component: "LABALBU" PT/INR: Recent Labs 06/16/23 1409 PROTIME 22.3* INR 2.2* CARDIAC ENZYMES: No results for input(s): "TROPONINI" in the last 72 hours. Procalcitonin: No results found for: "PROCAL" Urine Culture: No results found for this or any previous visit. COVID-19 PCR: No results for input(s): "COVID19" in the last 72 hours. I reviewed: [...] Emergency Contact: Patito [place] Mobile Relation: Son Restaurant Greeter needed? No Secondary Emergency Contact: Ty [place] Mobile Relation: Son Jayshree Cortez MD Division of Hospitalist Medicine [facility] [employer] Phone: [phone]) 704-849503-18-2024 History and physical note* Jayshree Cortez MD [...] does not feel safe going back to [place] at [place]. Since patient staying ortho [...] (98.1 F) (Oral) Resp 13 Ht 5' 3" (1.6 m) Wt 174 lb (78.9 kg) [...] ANIONGAP 7 LIVER PROFILE:No results for input(s): "AST", "ALT", "BILITOT", "ALKPHOS", "PROT" in the last 72 hours. No lab exists for component: "LABALBU" PT/INR: Recent Labs 06/16/23 1409 PROTIME 22.3* INR 2.2* CARDIAC ENZYMES: No results for input(s): "TROPONINI" in the last 72 hours. Procalcitonin: No results found for: "PROCAL" Urine Culture: No results found for this or any previous visit. COVID-19 PCR: No results for input(s): "COVID19" in the last 72 hours. I reviewed: [...] Primary Emergency Contact: BereketPatito Mobile Relation: Son Restaurant Greeter needed? No Secondary Emergency Contact: BereketTy Mobile Relation: Son Jayshree Cortez MD Division of Hospitalist Medicine [facility] documented in this [facility]03-18-2024 Physician Emergency department Note* NADIA Ruiz - 06/16/2023 12:38 PM EDT Images from the original note were not included. EMERGENCY DEPARTMENT ENCOUNTER Pt Name: Ezra Gonzalez Birthdate 1935 Date of evaluation: 06/16/2023 ED Provider: NADIA Ruiz CHIEF COMPLAINT Chief Complaint Patient presents with Arm Injury Pt [facility] with complaints of [...] injury anywhere else. Patient was evaluated at [facility] emergency department prior to arrival and was noted to have a distal humerus fracture. Patient was transferred to [facility] ED for orthopedic consultation. Patient denies [...] Culture. Procedure Abnormality Status --------- ------ Complete Urinalysis[[id number]] Please view results for these tests on [...] kg (174 lb) Height: 1.6 m (5' 3") Medications HYDROmorphone (Dilaudid) injection 0.5 mg (0.5 mg IntraVENous Given 06/16/23 1508) ED care was supervised by Dr. Conde who independently examined and evaluated the patient. Please see their attestation note for further details. In brief, Ezra Gonzalez is a 87 y.o. female who presented to the emergency department for evaluation of a right arm injury. Patient was seen at [facility] prior to arrival was noted to have a distal humerus fracture. Patient transferred to [facility] ED for orthopedic consultation. Nursing notes [...] screen, x-ray right elbow. CT head from [place] ED -shows no signs of acute cranial abnormalities. CXR from [place] ED prior to arrival -blunting of bilateral [...] Emergency Medicine Provider NADIA Ruiz 06/16/23 1635 [facility] [id number] Physician Emergency department Note* Sae Conde MD - 06/16/2023 12:38 PM EDT Emergency Department Encounter [facility] EMERGENCY DEPT Patient: Ezra Gonzalez : [...] for clarification.) Sae Conde MD Acute Care Audio Shack Sae Conde MD 06/16/23 9407 [employer] Phone: 1(249) 726-703309-30-2023 Discharge summary Author Lali Pimentel [facility] December 27, 2022 10:31pm Note Date/Time December 27, 2022 3:52pm [facility] Medical Records Department [address] [place] [address] Emergency Department Summary 12/27/22 MR#: [id number] Acct: [id number] Name: EZRA GONZALEZ Rep #:[id number] : 1935 87 From: Lali Pimentel MD PCP: Dr. Rosemary Doran MD Status:ADM MARIELOS Location: [address] History of Present Illness Chief Complaint: [...] repeat a phrase her speech is garbled. [facility] Medical History Atherosclerotic heart disease of [place] coronary artery without angina pectoris Chronic diastolic [...] rash Verified 12/27/22 15:40 amiodarone AdvReac Severe "Hair Verified 12/27/22 15:40 falling out in gobs" atorvastatin [From Lipitor] AdvReac myalgia Verified 12/27/22 [...] % (Auto) 57.4 Lymph % (Auto) 27.9 [place] % (Auto) 10.8 H Eos % (Auto) [...] Signed: Chuy Kruger DO at 16:33 EDT Reading Location ID and State: [facility] / [place] Tel [phone], Service support , EKG Initial EKG: Attestation: I personally [...] troponin is normal at 10. Neurology from [facility] felt that the patient should be admitted [...] Provider] - Disposition Disposition: Acute Care Hospital [facility] What to do if you have Problems For any increased pain, shortness of breath, bleeding, nausea or vomiting, chestpain, or any unexpected problems, contact your Primary Care Provider. Call [facility] ([phone]) or report to the closest Emergency Room. Call 911 if necessary. 12/27/222230 <Electronically signed by Lali Pimentel MD> Cosigner Signature (if applicable): CC: Dr. Rosemary Doran MD ~ Signed [facility] Work Phone: 1(749) 746-169209-29-2023 History and physical note Author Lynn Horn [facility] December 27, 2022 6:54pm Note Date/Time December 27, 2022 5:12pm [facility] Medical Records Department [address] [place] [address] H&P Exam - Hospitalist 12/27/22 1709 MR#: [id number] Acct: [id number] Name: EZRA GONZALEZ Rep #:[id number] : 1935 87 From: Lynn Horn DO PCP: Dr. Rosemary Doran MD Status:ADM MARIELOS Location: [place] [address] HPI - General General Date of Admission: 12/27/22 Date of Service: 12/27/22 Chief Complaint: Speech abnormalities HPI Narrative EZRA GONZALEZ, is a 87 F who presented to the emergency department at [facility] on 12/27/2022 with speech abnormalities that started after 1 PM this afternoon. She resides at [facility]. She was last known well [...] will add aspirin 81 mg as well [facility] Medical History Atherosclerotic heart disease of [place] coronary artery without angina pectoris Chronic diastolic [...] rash Verified 12/27/22 15:40 amiodarone AdvReac Severe "Hair Verified 12/27/22 15:40 falling out in gobs" atorvastatin [From Lipitor] AdvReac myalgia Verified 12/27/22 [...] % (Auto) 57.4, Lymph % (Auto) 27.9, [place] % (Auto) 10.8 H, Eos % (Auto) [...] confirmed on 12/27/2022 16:23:14 (ET). Electronically Signed: Chyu Kruger DO at 16:21 EDT , Chest [...] on admission Charges/Coding Visit Charges Inpatient E&M: 64309 Init Hosp L2 12/27/22 9029 <Electronically signed by Lynn Horn DO> Cosigner Signature (if applicable): CC: Dr. Rosemary Doran MD; Dr. Lynn Horn DO~ Signed [facility] Work Phone: 1(284) 959-986709-14-2023 Discharge summary Author María Crane [facility] December 12, 2022 1:40pm Note Date/Time December 12, 2022 1:40pm [facility] Physical Therapy [facility] [address] [place] [address] [address] [place] [id number] / REHABILITATION SERVICES DISCHARGE SUMMARY MR#: [id number] Acct: [id number] Name: EZRA GONZALEZ Rep #: [id number] : 1935 87 From: María Cooley Referring Dr.: Dr. Anant Juarez MD Status: REG R Insurance: [facility] [id number] SELF PAY INSURANCE Patient Information Patient Information: [...] Dr. Anant Juarez MD ~ ELR Signed [facility] Work Phone: 1(493) 984-436411-17-2007 Evaluation note* Diagnosis Onset Date Resolution Status Chronic diastolic (congestive) heart failure chronic Essential (primary) hypertension chronic Paroxysmal atrial fibrillation chronic History of coronary artery stent placement February 142006 resolved [facility] Work Phone: 1(620) 604-376311-17-2007 Evaluation note* Diagnosis Onset Date Resolution Status Chronic diastolic (congestive) heart failure chronic Essential (primary) hypertension chronic History of coronary artery stent placement February 142006 resolved Brain TIA resolved Carotid stenosis acute Difficulty with speech acute Dysarthria resolved Polyneuropathy acute [facility] Work Phone: 1(269) 283-200111-17-2007 Evaluation note* Diagnosis Onset Date Resolution Status Chronic diastolic (congestive) heart failure chronic Essential (primary) hypertension chronic History of coronary artery stent placement February 142006 resolved Brain TIA resolved Carotid stenosis acute Difficulty with speech acute Dysarthria resolved Abnormality of gait and mobility acute Carotid stenosis acute Dementia acute Polyneuropathy acute Transient ischemic attack re solved [facility] Work Phone: 1(607) 604-119011-17-2007 Evaluation note* Diagnosis Onset Date Resolution Status Longstanding persistent atrial fibrillation acute Essential (primary) hypertension chronic History of coronary artery stent placement February 142006 resolved Dementia acute Epilepsy acute Polyneuropathy acute Transient ischemic attack re solved [facility] Work Phone: Consult note Author Kvng Carney [facility] June 16, 2023 10:15am Note Date/Time June 16, 2023 10: 14am [facility] Medical Records Department [address] [place] [address] Consultation - Orthopedics 06/16/23 1012 MR#: [id number] Acct: [id number] Name: EZRA GONZALEZ Rep #:[id number] : 1935 87 From: Kvng Carney MD PCP: Dr. Rosemary Doran MD Status:REG ER Location: ED HPI Consult Data Date of Consult: 06/16/23 HPI Narrative HPI Narrative: EZRA GONZALEZ, is a 87 F who presents with a right distal humerus fracture. Patient apparently is in snf there a fall. According to the ED physician Dr. Mack who called me today this is a closed neurovascularly intact injury. [facility] Medical History (Updated 06/16/23 @ 10:13 by Kvng Carney MD) Atherosclerotic heart disease of [place] coronary artery without angina pectoris Chronic diastolic [...] rash Verified 05/19/23 11:28 amiodarone AdvReac Severe "Hair Verified 05/19/23 11:28 falling out in gobs" atorvastatin [From Lipitor] AdvReac myalgia Verified 05/19/23 [...] % (Auto) 67.8, Lymph % (Auto) 23.0, [place]% (Auto) 7.0, Eos % (Auto) 1.3, Baso [...] or concerns. 06/16/23 1015 <Electronically signed by Kvng Carney MD> Cosigner Signature (if applicable): CC: Dr. Rosemary Doran MD~ Signed [facility] Work Phone: Discharge summary Author Neri Mitchell [facility] November 14, 2022 11:57am Note Date/Time November 14, 2022 11 :10am [facility] Medical Records Department [address] [place] [address] Emergency Department Summary 11/14/22 MR#: [id number] Acct: [id number] Name: EZRA GONZALEZ Rep #:[id number] : 1935 87 From: Neri Mitchell MD PCP: Dr. Rosemary Doran MD Status:REG ER Location: ED HPI History of Present Illness Chief Complaint: Stroke Alert Informant: patient Narrative Narrative: Patient seen around 11 AM, last known well 08, she was seen at breakfast at assisted living doing just fine. Her significant other was with her when this occurred, she started having weakness on the right side according to report, along with trouble speaking. She denies having any weakness or tingling right now. She denies a headache. She is on warfarin has history of TIAs. [facility] Medical History Atherosclerotic heart disease of [place] coronary artery without angina pectoris Chronic diastolic [...] rash Verified 10/15/22 09:31 amiodarone AdvReac Severe "Hair Verified 10/15/22 09:31 falling out in gobs" atorvastatin [From Lipitor] AdvReac myalgia Verified 10/15/22 [...] deficits noted Neuro Narrative: Aphasic. Follows commands. [place] Coma Scale: document GCS findings Spontaneous Obeys [...] % (Auto) 64.0 Lymph % (Auto) 24.9 [place] % (Auto) 7.8 Eos % (Auto) 2.4 [...] No evidence for large vessel occlusion the [place] region. N.B. : The above Results were Read Back by Ban Avila MD to Neri Mitchell MD, and understanding confirmed on 11/14/2022 11:41:26 (ET). Electronically Signed: Ban Avila MD at 11:41 EDT , ADDENDUM: 11/14/22 1148 IMPRESSION: No evidence for significant stenosis or occlusion in the carotid or vertebral arteries of the neck. No evidence for large vessel occlusion the [place] region. N.B. : The above [...] Fibrillation Management Discussion w/another healthcare provider: Hospitalist, Electrical Prospector (Stroke neurology Dr. Tamez) and Radiologist (At 1121 for NCCT, negative for bleed) Stroke Documentation Questions Stroke Team Activated: Yes Critical Care Time Critical Care Time: Yes Critical care time (excluding procedures): 30-74 minutes (37 min), Including time spent:, Discussing w/Patient &/or Family/Supervisor Force Adjustment, Discussing w/Consultants, Arranging Admission or Transfer and Performing Direct Patient Care at Bedside Discharge Plan Dx/Rx/DC Orders Clinical Impression: Brain TIA, Paroxysmal atrial fibrillation, Subtherapeutic international normalized ratio (INR) Disposition Disposition: Acute Care Hospital [facility] What to do if you have Problems For any increased pain, shortness of breath, bleeding, nausea or vomiting, chestpain, or any unexpected problems, contact your Primary Care Provider. Call [facility] ([phone]) or report to the closest Emergency Room. Call 911 if necessary. 11/14/22 1157 <Electronically signed by Neri Mitchell MD> Cosigner Signature (if applicable): CC: Dr. Rosemary Doran MD ~ Signed [facility] Work Phone: Discharge summary Author Sae Carballo [facility] December 28, 2022 11:09am Note Date/Time December 28, 2022 11:08am [facility] Medical Records Department [address] [place] [address] Instructions for Home/Discharge Instructions 12/28/22 1107 MR#: [id number] Acct: [id number] Name: EZRA GONZALEZ Rep #:[id number] : 1935 87 From: Sae fleming MD [...] MD; Dr. Lynn Horn DO ~ Signed [facility] Work Phone: evaluation note* Diagnosis Onset Date Resolution Status Atherosclerotic heart diseas e of [place] coronary artery without angina pectoris chronic Chronic diastolic (congestive) heart failure chronic Essential (primary) hypertension chronic Hyperlipidemia chronic Paroxysmal atrial fibrillation [facility] Work Phone: evaluation note* Diagnosis Onset Date Resolution Status Abnormality of gait and mobility acute Carotid stenosis acute Dementia acute Polyneuropathy acute Transient ischemic attack re solved [facility] Work Phone: evaluation note* Diagnosis Onset Date Resolution Status Abnormality of gait and mobility acute Carotid stenosis acute Dementia acute Polyneuropathy acute Transient ischemic attack re solved Chronic diastolic (congestive) heart failure chronic Essential (primary) hypertension chronic Paroxysmal atrial fibrillation chronic History of coronary artery stent placement February 142006 resolved [facility] Work Phone: Evaluation note* Diagnosis [...] normalized ratio (INR) acute Paroxysmal atrial fibrillation [facility] Work Phone: Evaluation note* Diagnosis Onset Date Resolution Status Abnormality of gait and mobility acute Carotid stenosis acute Dementia acute Polyneuropathy acute Transient ischemic attack re solved Chronic diastolic (congestive) heart failure chronic Essential (primary) hypertension chronic History of coronary artery stent placement February 142006 resolved Brain TIA resolved Carotid stenosis acute [facility] Work Phone: Evaluation note* Diagnosis Onset Date Resolution Status Abnormality of gait and mobility acute Carotid stenosis acute Dementia acute Polyneuropathy acute Transient ischemic attack re solved Chronic diastolic (congestive) heart failure chronic Essential (primary) hypertension chronic History of coronary artery stent placement February 142006 resolved Brain TIA resolved Carotid stenosis acute Difficulty with speech acute Dysarthria acute [facility] Work Phone: Evaluation note* Diagnosis Onset Date Resolution Status Brain TIA resolved Carotid stenosis acute Difficulty with speech acute Dysarthria resolved Abnormality of gait and mobility acute Carotid stenosis acute Dementia acute Polyneuropathy acute Transient ischemic attack re solved [facility] Work Phone: Evaluation note* Diagnosis Onset Date Resolution Status Dementia acute Epilepsy acute Polyneuropathy acute Transient ischemic attack re solved [facility] Work Phone: Evaluation note* Diagnosis Onset Date Resolution Status Dementia acute Epilepsy acute Polyneuropathy acute Transient ischemic attack re solved Longstanding persistent atrial fibrillation acute Essential (primary) hypertension chronic History of coronary artery stent placement February 142006 resolved Dementia acute Epilepsy acute Polyneuropathy acute Transient ischemic attack re solved [facility] Work Phone: Evaluation note* Diagnosis Closed displaced fracture of medial condyle of right humerus, initial encounter- Primary Closed displaced fracture of medial condyle of right humerus, initial encounter documented in this encounter [facility] Additional Instructions Your work-up today does not show signs of heart attack or heart damage. Your Coumadin level/INR is therapeutic at 2.7. Please follow-up with your family doctor for repeat evaluation or return to the ER if you have any further concerns[facility] Work Phone: Hospital Discharge instructionsAmbulatory Orders* Physical Therapy Referral Location: None Selected [facility] Work Phone: Hospital Discharge instructions Additional Instructions Will need to follow-up Lamictal level since it is a send out. Recommend follow- up appointment with her neurologist Dr. [facility]arez[facility] Work Phone: Reason for referral (narrative)No reason for referral information availableWMemorial [facility] Work Phone: Summary Purpose Family History No Family History Records Found Relationship Condition Age at Onset Recorded Date/T mgagy father Coronary artery disease Unknown brother Coronary artery disease Unknown Advance Directives No Advanced Directives Records Found Advance Directive Response Recorded Date/ Time Advance Directives Yes November 10:13am Living Will No February 11 12:11am Power of Senior Actuarial Analyst No February 11, 2022 12:11am Advance Directive Response Recorded Date/ Time Advance Directives Yes November 11:13am Living Will No February 11 1:11am Power of Senior Actuarial Analyst No February 11, 2022 1:11am Advance Directive Response Recorded Date/ Time Advance Directives Yes November 11:13am Living Will No September 08, 2022 3:33pm Power of Senior Actuarial Analyst No September 08 3:33pm Advance Directive Response Recorded Date/ Time Advance Directives Yes November 11:13am Living Will No November 14 11:07am Power of Senior Actuarial Analyst No November 14 023 11:07am Advance Directive Response Recorded Date/ Time Name of Medical Power of Senior Actuarial Analyst Ty Nemasti l November 18, 2022 7:55am Advance Directives Yes November 11:13am Living Will Yes November 18 7:55am Power of Senior Actuarial Analyst Yes November 18, 023 7:55am Name of Medical Power of Senior Actuarial Analyst Wilfredo Nemastil November 14, 2022 1:26pm Advance Directive Response Recorded Date/ Time Name of Medical Power of Senior Actuarial Analyst Ty Nemasti l November 18, 2022 7:55am Name of Medical Power of Senior Actuarial Analyst Wilfredo Nemastil November 14, 2022 1:26pm Advance Directives Yes November 11:13am Living Will No December 27, 2022 7:16pm Power of Senior Actuarial Analyst No November 7:16pm Advance Directive Response Recorded Date/ Time Name of Medical Power of Senior Actuarial Analyst Ty Nemasti l November 18, 2022 6:55am Name of Medical Power of Senior Actuarial Analyst Wilfredo Nemastil November 14, 2022 12:26pm Advance Directives Yes November 10:13am Living Will No December 27, 2022 6:16pm Power of Senior Actuarial Analyst No November 6:16pm Advance Directive Response Recorded Date/ Time Advance Directives Yes November 10:13am Living Will No December 27, 2022 6:16pm Power of Senior Actuarial Analyst No November 6:16pm Advance Directive Response Recorded Date/ Time Name of Medical Power of Senior Actuarial Analyst SON--JACK June 16, 2023 8:32am Advance Directives Yes November 11:13am Living Will Yes June 16, 2023 8:32am Power of Senior Actuarial Analyst Yes June 15 8:32am Latest Code Status on File Code Status Date Activated Date Inactivated Comments Full Code 06/16/2023 4:39 PM 06/20/2023 7:46 PM Advance Directive Response Recorded Date/ Time Living Will Yes June 16, 2023 7:32am Power of Senior Actuarial Analyst Yes June 15 7:32am Advance Directives Yes November 10:13am Advance Directive Response Recorded Date/ Time Living Will Yes June 16, 2023 8:32am Do you have a Healthcare Power of Senior Actuarial Analyst? Yes June 16, 2023 8:32am Advance Directives Yes November 11:13am Advance Directive Response Recorded Date/ Time Living Will No December 27, 2022 7:16pm Do you have a Healthcare Power of Senior Actuarial Analyst? No December 27, 2022 7:16pm Living Will Yes June 16, 2023 8:32am Do you have a Healthcare Power of Senior Actuarial Analyst? Yes June 16, 2023 8:32am Advance Directives Yes November 11:13am Advance Directive Response Recorded Date/ Time Living Will No December 27, 2022 7:16pm Do you have a Healthcare Power of Senior Actuarial Analyst? No December 27, 2022 7:16pm Do you have a Healthcare Power of Senior Actuarial Analyst? Yes September 08, 2024 12:26pm Advance Directives Yes November 11:13am Advance Directive Response Recorded Date/ Time Living Will No December 27, 2022 7:16pm Do you have a Healthcare Power of Senior Actuarial Analyst? No December 27, 2022 7:16pm Do you have a Healthcare Power of Senior Actuarial Analyst? Yes September 10, 2024 5:17pm Do you have a Healthcare Power of Senior Actuarial Analyst? Yes September 08, 2024 12:26pm Advance Directives [...] for Visit Atherosclerotic hear t disease of [place] coronary artery without angina pectoris Chronic diastolic [...] TIA SYMPTOMS, HX OF DM, AFIB confusion penitentiary (current) use 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 EORDER FOR LABS FROM DR JUAREZ Consult Reason for Visit Abnormality of gait and mobility Carotid stenosis Dementia Polyneuropathy Transient ischemic attack Chief Complaint TIA SYMPTOMS, HX OF DM, AFIB confusion penitentiary (current) use 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 EORDER FOR LABS FROM DR JUAREZ Consult LEFT ICA STENOSIS Reason for Visit Abnormality of gait and mobility Carotid stenosis Dementia Polyneuropathy Transient ischemic attack Chief Complaint TIA SYMPTOMS, HX OF DM, AFIB confusion penitentiary (current) use 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 EORDER FOR LABS FROM DR JUAREZ Consult LEFT ICA STENOSIS 6 M FU W DIRECTOR BIOSTATISTICS per DIRECTOR BIOSTATISTICS GAIT,POLYNEUROPATHY,LUMBAR COMPRESSION FX/RX HERE GAIT DISORDER Reason [...] ICA STENOSIS 6 M FU W DIRECTOR BIOSTATISTICS per DIRECTOR BIOSTATISTICS GAIT,POLYNEUROPATHY,LUMBAR COMPRESSION FX/RX HERE GAIT DISORDER TIA [...] ICA STENOSIS 6 M FU W DIRECTOR BIOSTATISTICS per DIRECTOR BIOSTATISTICS GAIT,POLYNEUROPATHY,LUMBAR COMPRESSION FX/RX HERE GAIT DISORDER TIA [...] ICA STENOSIS 6 M FU W DIRECTOR BIOSTATISTICS per DIRECTOR BIOSTATISTICS GAIT,POLYNEUROPATHY,LUMBAR COMPRESSION FX/RX HERE GAIT DISORDER TIA TIA (cardiology) TIA (cardiology) tia RETIREMENT LAB WORK CONSULT-CAROTID STENOSIS Reason for Visit Abnormality of gait and mobility Carotid stenosis Dementia Polyneuropathy Transient ischemic attack Chronic diastolic (congestive) heart failure Essential (primary) hypertension History of coronary artery stent placement Brain TIA Carotid stenosis Chief Complaint TIA SYMPTOMS, HX OF DM, AFIB confusion penitentiary (current) use 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 EORDER FOR LABS FROM DR JUAREZ Consult LEFT ICA STENOSIS 6 M FU W DIRECTOR BIOSTATISTICS per DIRECTOR BIOSTATISTICS GAIT,POLYNEUROPATHY,LUMBAR COMPRESSION FX/RX HERE GAIT DISORDER TIA TIA (cardiology) TIA (cardiology) tia RETIREMENT LAB WORK CONSULT-CAROTID STENOSIS LABWORK RETIREMENT LABWORK Reason for Visit Abnormality of gait and mobility Carotid stenosis Dementia Polyneuropathy Transient ischemic attack Chronic diastolic (congestive) heart failure Essential (primary) hypertension History of coronary artery stent placement Brain TIA Carotid stenosis Chief Complaint TIA SYMPTOMS, HX OF DM, AFIB confusion penitentiary (current) use 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 EORDER FOR LABS FROM DR JUAREZ Consult LEFT ICA STENOSIS 6 M FU W DIRECTOR BIOSTATISTICS per DIRECTOR BIOSTATISTICS GAIT,POLYNEUROPATHY,LUMBAR COMPRESSION FX/RX HERE GAIT DISORDER TIA TIA (cardiology) TIA (cardiology) tia RETIREMENT LAB WORK CONSULT-CAROTID STENOSIS LABWORK RETIREMENT LABWORK DYARTHRIA DYARTHRIA Reason for Visit Abnormality of gait and mobility Carotid stenosis Dementia Polyneuropathy Transient ischemic attack Chronic diastolic (congestive) heart failure Essential (primary) hypertension History of coronary artery stent placement Brain TIA Carotid stenosis Difficulty with speech Dysarthria Chief Complaint LEFT ICA STENOSIS 6 M FU W DIRECTOR BIOSTATISTICS per DIRECTOR BIOSTATISTICS GAIT,POLYNEUROPATHY,LUMBAR COMPRESSION FX/RX HERE GAIT DISORDER TIA TIA (cardiology) TIA (cardiology) tia RETIREMENT LAB WORK CONSULT-CAROTID STENOSIS LABWORK RETIREMENT LABWORK DYARTHRIA DYARTHRIA DYARTHRIA RETIREMENT LABWORK 4 month f/u EORDER Reason for Visit Chronic diastolic (c ongestive) heart failure Essential (primary) hypertension History of coronary artery stent placement Brain TIA Carotid stenosis Difficulty with speech Dysarthria Polyneuropathy Chief Complaint 6 M FU W DIRECTOR BIOSTATISTICS per DIRECTOR BIOSTATISTICS GAIT,POLYNEUROPATHY,LUMBAR COMPRESSION FX/RX HERE GAIT DISORDER TIA TIA (cardiology) TIA (cardiology) tia RETIREMENT LAB WORK CONSULT-CAROTID STENOSIS LABWORK RETIREMENT LABWORK DYARTHRIA DYARTHRIA DYARTHRIA RETIREMENT LABWORK 4 month f/u EORDER Reason for Visit Chronic diastolic (c ongestive) heart failure Essential (primary) hypertension History of coronary artery stent placement Brain TIA Carotid stenosis Difficulty with speech Dysarthria Abnormality of gait and mobility Carotid stenosis Dementia Polyneuropathy Transient ischemic attack Chief Complaint TIA TIA (cardiology) TIA (cardiology) tia RETIREMENT LAB WORK CONSULT-CAROTID STENOSIS LABWORK RETIREMENT LABWORK DYARTHRIA DYARTHRIA DYARTHRIA RETIREMENT LABWORK 4 month f/u EORDER RETIREMENT LABWORK Reason for Visit Brain TIA Carotid stenosis Difficulty with speech Dysarthria Abnormality of gait and mobility Carotid stenosis Dementia Polyneuropathy Transient ischemic attack Chief Complaint RETIREMENT LABWORK 4 month f/u EORDER RETIREMENT LABWORK RETIREMENT LAB WORK RETIREMENT LABWORK Reason for Visit Dementia Epilepsy Polyneuropathy Transient ischemic attack Chief Complaint 4 month f/u EORDER RETIREMENT LABWORK RETIREMENT LAB WORK RETIREMENT LAB WORK RETIREMENT LABWORK 7 m fu 4 month f/u Reason for Visit Dementia Epilepsy Polyneuropathy Transient ischemic attack Longstanding persistent atrial fibrillation Essential (primary) hypertension History of coronary artery stent placement Dementia Epilepsy Polyneuropathy Transient ischemic attack Chief Complaint RETIREMENT LABWORK RETIREMENT LAB WORK RETIREMENT LAB WORK RETIREMENT LABWORK LABWORK 7 m fu 4 month f/u LABWORK Reason for Visit Longstanding persist ent atrial fibrillation Essential (primary) hypertension History of coronary artery stent placement Dementia Epilepsy Polyneuropathy Transient ischemic attack Chief Complaint RETIREMENT LABWORK RETIREMENT LAB WORK RETIREMENT LAB WORK RETIREMENT LABWORK LABWORK 7 m fu 4 month f/u LABWORK FALL FALL Reason for Visit Longstanding persist ent atrial fibrillation Essential (primary) hypertension History of coronary artery stent placement Dementia Epilepsy Polyneuropathy Transient ischemic attack Chief Complaint RETIREMENT LAB WOR K RETIREMENT LAB WORK RETIREMENT LABWORK LABWORK 7 m fu 4 month f/u LABWORK FALL FALL LABWORK Reason for Visit Longstanding persist ent atrial fibrillation Essential (primary) hypertension History of coronary artery stent placement Dementia Epilepsy Polyneuropathy Transient ischemic attack Chief Complaint Admit Date RETIREMENT LAB WORK February 05, 2024 5:00am RETIREMENT LAB WORK March 04, 2024 5:00am RETIREMENT LAB WORK March 08, 2024 5:00am RETIREMENT LAB WORK March 10 4:00am LABWORK March 17, 2024 5:00am LABWORK March 19, 2024 5:00am LABWORK March 25, 2024 5:00am RETIREMENT LAB WORK March 26 5:00am RETIREMENT LAB WORK March 29 5:00am RETIREMENT LAB WORK April 05, 2024 5:00am RETIREMENT LAB WORK April 06, 2024 5:00am LABWORK April 09, 2024 5 :00am RETIREMENT LAB WORK April 14, 2024 4:00am RETIREMENT LAB WORK April 28, 2024 5:00am LABWORK May 05, 2024 5 :00am 8 mo fu May 10, 2024 2:34pm RETIREMENT LAB WORK May 19 5:00am Reason for Visit Admit Date Dementia May 10, 2024 2:34pm Epilepsy May 10, 2024 2:34pm Transient ischemic attack May 10, 2024 2:34pm Chief Complaint Admit Date RETIREMENT LAB WORK March 04, 2024 5:00am RETIREMENT LAB WORK March 08, 2024 5:00am RETIREMENT LAB WORK March 10 4:00am LABWORK March 17, 2024 5:00am LABWORK March 19, 2024 5:00am LABWORK March 25, 2024 5:00am RETIREMENT LAB WORK March 26 5:00am RETIREMENT LAB WORK March 29 5:00am RETIREMENT LAB WORK April 05, 2024 5:00am RETIREMENT LAB WORK April 06, 2024 5:00am LABWORK April 09, 2024 5 :00am RETIREMENT LAB WORK April 14, 2024 4:00am RETIREMENT LAB WORK April 28, 2024 5:00am LABWORK May 05, 2024 5 :00am 8 mo fu May 10, 2024 2:34pm RETIREMENT LAB WORK May 12 5:00am RETIREMENT LAB WORK May 19 5:00am RETIREMENT LAB WORK June 09, 2024 5 :00am Chief Complaint Admit Date RETIREMENT LAB WORK March 10 4:00am LABWORK March 17, 2024 5:00am LABWORK March 19, 2024 5:00am LABWORK March 25, 2024 5:00am RETIREMENT LAB WORK March 26 5:00am RETIREMENT LAB WORK March 29 5:00am RETIREMENT LAB WORK April 05, 2024 5:00am RETIREMENT LAB WORK April 06, 2024 5:00am LABWORK April 09, 2024 5 :00am RETIREMENT LAB WORK April 14, 2024 4:00am RETIREMENT LAB WORK April 28, 2024 5:00am LABWORK May 05, 2024 5 :00am 8 mo fu May 10, 2024 2:34pm RETIREMENT LAB WORK May 12 5:00am RETIREMENT LAB WORK May 19 5:00am RETIREMENT LAB WORK June 09, 2024 5 :00am RETIREMENT LAB WORK June 16, 2024 5 :00am [...] Admit Date LABWORK March 25, 2024 5:00am RETIREMENT LAB WORK March 26 5:00am RETIREMENT LAB WORK March 29 5:00am RETIREMENT LAB WORK April 05, 2024 5:00am RETIREMENT LAB WORK April 06, 2024 5:00am LABWORK April 09, 2024 5 :00am RETIREMENT LAB WORK April 14, 2024 4:00am RETIREMENT LAB WORK April 28, 2024 5:00am LABWORK May 05, 2024 5 :00am 8 mo fu May 10, 2024 2:34pm RETIREMENT LAB WORK May 12 5:00am RETIREMENT LAB WORK May 19 5:00am RETIREMENT LAB WORK June 09, 2024 5 :00am RETIREMENT LAB WORK June 16, 2024 5 :00am 1 Y FU July 01, 2024 10:3 5am RETIREMENT LAB WORK July 19, 2024 4 :00am Chief Complaint Admit Date RETIREMENT LAB WORK May 12 5:00am RETIREMENT LAB WORK May 19 5:00am RETIREMENT LAB WORK June 09, 2024 5 :00am RETIREMENT LAB WORK June 16, 2024 5 :00am 1 Y FU July 01, 2024 10:3 5am RETIREMENT LAB WORK July 19, 2024 4 :00am RETIREMENT LAB WORK August 18, 2024 5:0 0am SEIZURE September 08, 2024 12:2 0pm Reason for Visit Admit Date Longstanding persistent atrial fibrillat ion July 01, 2024 10:35am Essential (primary) hypertension July 012024 10:35am History of coronary artery stent placeme nt July 01, 2024 10:35am Chief Complaint Admit Date RETIREMENT LAB WORK May 19 5:00am RETIREMENT LAB WORK June 09, 2024 5 :00am RETIREMENT LAB WORK June 16, 2024 5 :00am 1 Y FU July 01, 2024 10:3 5am RETIREMENT LAB WORK July 19, 2024 4 :00am RETIREMENT LAB WORK August 18, 2024 5:0 0am SEIZURE September 08, 2024 12:2 0pm Chief Complaint Admit Date RETIREMENT LAB WORK May 19 5:00am RETIREMENT LAB WORK June 09, 2024 5 :00am RETIREMENT LAB WORK June 16, 2024 5 :00am 1 Y FU July 01, 2024 10:3 5am RETIREMENT LAB WORK July 19, 2024 4 :00am RETIREMENT LAB WORK August 18, 2024 5:0 0am SEIZURE September 08, 2024 12:2 0pm STROKE VS SEIZURE September 10, 2024 4:03 pm Chief Complaint Admit Date RETIREMENT LAB WORK May 19 5:00am RETIREMENT LAB WORK June 09, 2024 5 :00am RETIREMENT LAB WORK June 16, 2024 5 :00am 1 Y FU July 01, 2024 10:3 5am RETIREMENT LAB WORK July 19, 2024 4 :00am RETIREMENT LAB WORK August 18, 2024 5:0 0am [...] 2024 4 :03pm Chief Complaint Admit Date RETIREMENT LAB WORK May 19 5:00am RETIREMENT LAB WORK June 09, 2024 5 :00am RETIREMENT LAB WORK June 16, 2024 5 :00am 1 Y FU July 01, 2024 10:3 5am RETIREMENT LAB WORK July 19, 2024 4 :00am RETIREMENT LAB WORK August 18, 2024 5:0 0am SEIZURE September 08, 2024 12:2 0pm STROKE VS SEIZURE September 10, 2024 4:03 pm STROKE VS SEIZURE September 11, 2024 12:1 4pm 2 SEIZURES/ IN H September 13, 2024 2:04 pm EORDERS September [...] section and content) DATE CREATED AUTHOR 02/04/[address] [facility] [place] [facility] DATE CREATED AUTHOR AUTHOR'S ORGANIZ ATION 11/12/2019 [facility] DATE CREATED AUTHOR AUTHOR'S ORGANIZ ATION 06/26/2023 [facility] DATE CREATED AUTHOR AUTHOR'S ORGANIZ ATION 09/23/2024 [facility] Comments (unrecognize d section and content) In the event this informatio n is protected by the Federal Confidentiality of Alcohol and Drug Abuse Patient Records regulations: The Federal rules restrict any use of the information to criminally investigate or prosecute any alcohol or drug abuse patient.[facility] the event this information is protected by the Federal Confidentiality of Alcohol and Drug Abuse Patient Records regulations: The Federal rules restrict any use of the information to criminally investigate or prosecute any alcohol or drug abuse patient.[facility] the event this information is protected by the Federal Confidentiality of Alcohol and Drug Abuse Patient Records regulations: The Federal rules restrict any use of the information to criminally investigate or prosecute any alcohol or drug abuse patient.[facility] the event this information is protected by the Federal Confidentiality of Alcohol and Drug Abuse Patient Records regulations: The Federal rules restrict any use of the information to criminally investigate or prosecute any alcohol or drug abuse patient.[facility] Hospital[facility] the event this information is protected by the Federal Confidentiality of Alcohol and Drug Abuse Patient Records regulations: The Federal rules restrict any use of the information to criminally investigate or prosecute any alcohol or drug abuse patient.[facility] Reason for Visit (unrecogniz ed section and content) Reason Onset Date Comments Refill Request Refill Request 11/11/2019 Reason Comments Arm Injury Pt arrives via [facility] with complaints of right elbow fracture. Patient was sent here for ortho consult. No pain on arrival. Arrives with right arm splinted. Specialty Diagnoses / Procedures Referred By Contac t Referred To Contact Diagnoses Closed displaced fracture of medial condyle of right humerus, initial encounter Procedures .. Jayshree Cortez MD [address] [place] [address] [facility] Emergency Dept [address] [place] [id number] Referral ID Status Reason Start Date Expiration Date Visits Re quested Visits Authorized [id number] 1 1 Telephone Encounter - Anne Marie [...] Visit date not found Patient Phone numbers: [phone] (home) Request is for script(s) to be escript to pharmacy. Anne Marie Hobbs Reg documented in this encounter Goals (unrecognized section [...] Status: Active Member Role Status Dates Dr. Kvng Ochoa DO Primary Care Provider Active Team [...] 09, 2024 End: June 09, 2024 Dr. Kvng MARTINEZ MD Attending Provider Active Start: June 09, 2024 End: June 09, 2024 Team Status: Inactive Member Role Status Dates Dr. Alexandra aHgen MD Primary Care Provider Active Start: June 16, 2024 End: June 16, 2024 Dr. Kvng MARTINEZ MD Attending Provider Active Start: June [...] 08, 2024 End: September 08, 2024 Dr. Kvng MARTINEZ MD Primary Care Provider Active Start: September 08, 2024 End: September 08, 2024 Team Status: Active Member Role Status Dates Dr. Kvng Ochoa DO Primary Care Provider Active Start: [...] HICKS MD Other Provider Active Start: [facility] [place] 2024 Cara Batista MD Other Provider Active Start : September 10, 2024 Dr. Lorelei Pruett MD Other Provider Active Start : September 10, 2024 Robinson Mayorga MD Other Provider Active Start: September 10, 2024 Aura Thurman MD Other Provider Active Start: September 10, 2024 Team Status: Active Member Role Status Dates Dr. Kvng MARTINEZ MD Primary Care Provider Active Team Status: Active Member Role Status Dates Dr. Alexandra Hagen MD Primary Care Provider Active Team Status: Active Member Role Status Dates Dr. Alexandra Hagen MD Primary Care Provider Active Start: March 04, 2024 Dr. Kvng MARTINEZ MD Attending Provider Active Start: March 04, 2024 Team Status: Active Member Role Status Dates Dr. Alexandra Hagen MD Primary Care Provider Active Start: March 08, 2024 Dr. Kvng MARTINEZ MD Attending Provider Active Start: March 08, 2024 Team Status: Active Member Role Status Dates Dr. Alexandra Hagen MD Primary Care Provider Active Start: March 10, 2024 Dr. Kvng MARTINEZ MD Attending Provider Active Start: March 10, 2024 Dr. Kvng MARTINEZ MD Referring Provider Active Start: March 10, 2024 Team Status: Active Member Role Status Dates Dr. Alexandra Hagen MD Primary Care Provider Active Start: March 17, 2024 Dr. Kvng MARTINEZ MD Attending Provider Active Start: March 17, 2024 Team Status: Active Member Role Status Dates Dr. Alexandra Hagen MD Primary Care Provider Active Start: March 19, 2024 Dr. Kvng MARTINEZ MD Attending Provider Active Start: March 19, 2024 Team Status: Active Member Role Status Dates Dr. Alexandra Hagen MD Primary Care Provider Active Start: March 25, 2024 Dr. Kvng MARTINEZ MD Attending Provider Active Start: March 25, 2024 Team Status: Active Member Role Status Dates Dr. Alexandra Hagen MD Primary Care Provider Active Start: March 26, 2024 Dr. Kvng MARTINEZ MD Attending Provider Active Start: March 26, 2024 Team Status: Active Member Role Status Dates Dr. Alexandra Hagen MD Primary Care Provider Active Start: March 29, 2024 Dr. Kvng MARTINEZ MD Attending Provider Active Start: March 29, 2024 Team Status: Active Member Role Status Dates Dr. Alexandra Hagen MD Primary Care Provider Active Start: April 05, 2024 Dr. Kvng MARTINEZ MD Attending Provider Active Start: April 05, 2024 Team Status: Inactive Member Role Status Dates Dr. Alexandra Hagen MD Primary Care Provider Active Start: April 06, 2024 End: April 06, 2024 Dr. Kvng MARTINEZ MD Attending Provider Active Start: April 06, 2024 End: April 06, 2024 Team Status: Inactive Member Role Status Dates Dr. Alexandra Hagen MD Primary Care Provider Active Start: April 09, 2024 End: April 09, 2024 Dr. Kvng MARTINEZ MD Attending Provider Active Start: April 09, 2024 End: April 09, 2024 Team Status: Active Member Role Status Dates Dr. Alexandra Hagen MD Primary Care Provider Active Start: April 14, 2024 Dr. Kvng MARTINEZ MD Attending Provider Active Start: April 14, 2024 Dr. Kvng MARTINEZ MD Referring Provider Active Start: April 14, 2024 Team Status: Inactive Member Role Status Dates Dr. Alexandra Hagen MD Primary Care Provider Active Start: April 28, 2024 End: April 28, 2024 Dr. Kvng MARTINEZ MD Attending Provider Active Start: April [...] Provider Active Start: June 16, 2024 Dr. Kvng MARTINEZ MD Attending Provider Active Start: June [...] Saldana MD Attending Provider Active Dr. Anant Juarze MD Referring Provider Active Team Status: Active [...] Lali Pimentel MD Emergency Provider Active Dr. Lnyn Horn DO Admit Provider, Other Provider Ac [...] MD Primary Care Provider Active Suze Prebish HOTBED OPERATOR, HOTBED OPERATOR-C Attending Provider, Referring Pr ovider Active Team [...] Rosemary Doran MD Primary Care Provider Active Kvng Carney MD Attending Provider Active Team Status: Inactive Member Role Status Dates Dr. Lali Pimentel MD Emergency Provider Active Dr. Rosemary Doran MD Primary Care Provider Active [employer] Start Date End Date Alexandra Hagen [address] [facility] [address] [place] [id number] PCP - General Family Medicine 06/20/23 Team Status: Inactive Member Role Status Dates Dr. Lali Pimentel MD Attending Provider, Emergency Provider Active Dr. Rosemary Doran MD Primary Care Provider Active Team Status: Inactive Member Role Status Dates Dr. Alexandra Hagen MD Primary Care Provider Active Start: February 05, 2024 End: February 05, 2024 Dr. Kvng MARTINEZ MD Attending Provider Active Start: February [...] Status: Inactive Member Role Status Dates Dr. Kvng Ochoa DO Primary Care Provider Active Start: September 10, 2024 End: September 11, 2024 Dr. Teri Garcia DO Emergency Provider Active Start: September 10, 2024 End: September 11, 2024 Dr. Matthew Oro DO Admit Provider Active Start: September 10, 2024 End: September 11, 2024 Dr. Matthew Oro DO Attending Provider Active Start: September 10, 2024 End: September 11, 2024 Dr. Olivia Trindiad MD Other Provider Active Start: September 10, [...] September 10, 2024 End: September 11, 2024 Auar Thurman MD Other Provider Active Start: September [...] Status: Active Member Role Status Dates Dr. Kvng Ochoa DO Primary Care Provider Active Start: [...] 08, 2024 End: September 08, 2024 Dr. Kvng MARTINEZ MD Primary Care Provider Active Start: September 08, 2024 End: September 08, 2024 Team Status: Inactive Member Role Status Dates Dr. Kvng Ochoa DO Primary Care Provider Active Start: September 13, 2024 End: September 13, 2024 Dr. Kvng Ochoa DO Referring Provider Active Start: September 13, 2024 End: September 13, 2024 Dr. Anant Juarez MD Attending Provider Active Start: September 13, 2024 End: September 13, 2024 Team Status: Active Member Role Status Dates Dr. Kvng Ochoa DO Primary Care Provider Active Start: September 13, 2024 Dr. Anant Juarez MD Attending Provider Active Start: September 13, 2024 Dr. Anant Juarez MD Referring Provider Active Start: September 13, 2024 Team Status: Inactive Member Role Status Dates Dr. Kvng Ochoa DO Primary Care Provider Active Start: [...] RN) 0837 (Given - Provider: Leona Sidhu, RN)2147 (Given [...] 2147 (Given - Provider: Kirsty Vicente RN) Insulin [...] Kirsty Vicente RN - Comment: bs 189) 2147 (Given - Provider: Kirsty Vicente RN) lamoTRIgine (LaMICtal) tablet 50 mg 50 mg, Oral, 2 times daily, First dose on Fri06/17/23 at 2145 0841 (Given - Provider: Odessa Wayne RN)1511 (MAY Hold - Provider: Automatic Transfer Provider - Reason: Patient not available)2025 ([facility]Y Unhold - Provider: Automatic Transfer Provider)2126 (Given - Provider: Kirsty Vicente RN) 0837 (Given - Provider: Leona Sidhu RN)2147 (Given - Provider: Kirsty Vicente RN) 09 (Given - Provider: Juanjo Villalba, RN) metoprolol tartrate (Lopressor) tablet 25 mg 25 mg, Oral, 2 times daily, First dose on Fri06/17/23 at 2145 0840 (Given - Provider: Odessa Wayne RN)1511 (MAY Hold - Provider: Automatic Transfer Provider - Reason: Patient not available)2025 ([facility] Unhold - Provider: Automatic Transfer Provider)2126 (Given - Provider: Kirsty Vicente RN) 0837 (Given - Provider: Leona Sidhu, JAYME)2147 (Given - Provider: Kirsty Vicente RN) 09 (Given - Provider: Juanjo Villalba, JAYME) pantoprazole (ProtoNix) EC tablet 40 mg 40 mg, Oral, Daily before breakfast, First dose on Fri06/18/23 at 0600, Substituted for omeprazole (Prilosec). Do not crush, chew, or split. 0600 (Not Given - Provider: Yvan Sepulveda RN - Reason: NPO)1511 ([facility] Hold - Provider: Automatic Transfer Provider - Reason: Patient not available)2025 ([facility] Unhold - Provider: Automatic Transfer Provider) 0540 [...] (COMPLETED) 5 mg, Oral, Once Warfarin, On Fri06/19/23 at 1700, For 1 dose 1738 (Given - Provider: Leona Sidhu, JAYME) Continuous Medication Order 06/18/2023 06/19/2023 06/20/2023 sodium chloride 0.9 % infusion (CANCELED) 100 mL/hr, IntraVENous, Continuous, Starting on Fri06/18/23 at 0945 1116 (New Bag - Provider: Odessa Wayne, RN)1435 (Stopped - Provider: Odessa Wayne RN) PRN Medication Order 06/18/2023 06/19/2023 06/20/2023 acetaminophen (Tylenol) suppository 650 mg(Linked Group 2) 650 mg, Rectal, Every 6 hours PRN, mild pain (1-3), fever, For temp greater than 100.4 F (38 C), Starting on Fri06/16/23 at 1639, Administer if oral route cannot be used. Maximum dose of acetaminophen is 4000 mg from all sources in 24 hours. 1511 ([facility] Hold - Provider: Automatic Transfer Provider - Reason: Patient not available)2025 ([facility] Unhold - Provider: Automatic Transfer Provider) acetaminophen (Tylenol) tablet 650 mg(Linked Group 2) 650 mg, Oral, Every 6 hours PRN, mild pain (1-3), fever, For temp greater than 100.4 F (38 C), Starting on Fri06/16/23 at 1639, Maximum dose of acetaminophen is 4000 mg from all sources in 24 hours. 1511 ([facility] Hold - Provider: Automatic Transfer Provider - Reason: Patient not available)2025 ([facility] Unhold - Provider: Automatic Transfer Provider) dextrose 5 % infusion 100 mL/hr, IntraVENous, PRN, Blood sugar less than 70mg/dL, Starting on Fri06/17/23 at 2131, Start infusion following administration of dextrose 50% or glucagon. 1511 ([facility] Hold - Provider: Automatic Transfer Provider - Reason: Patient not available)2025 ([facility] Unhold - Provider: Automatic Transfer Provider) dextrose [...] Glucostabilizer, dose as instructed per system. 1511 ([facility] Hold - Provider: Automatic Transfer Provider - Reason: Patient not available)2025 ([facility] Unhold - Provider: Automatic Transfer Provider) glucagon [...] 15 minutes x2 and notify provider. 1511 ([facility] Hold - Provider: Automatic Transfer Provider - Reason: Patient not available)2025 ([facility] Unhold - Provider: Automatic Transfer Provider) glucose [...] 15 minutes x2 and notify provider. 1511 ([facility] Hold - Provider: Automatic Transfer Provider - Reason: Patient not available)2025 ([facility] Unhold - Provider: Automatic Transfer Provider) HYDROmorphone [...] of each other unless specifically ordered. 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 Give IV if patient is unable to take orally. If inadequate response within 60 minutes, proceed to next-line agent or contact provider if no further options ordered. 1511 ([facility] Hold - Provider: Automatic Transfer Provider - Reason: Patient not available)2025 ([facility] Unhold - Provider: Automatic Transfer Provider) ondansetron [...] blister pack until just before administering. 1511 ([facility] Hold - Provider: Automatic Transfer Provider - Reason: Patient not available)2025 ([facility] Unhold - Provider: Automatic Transfer Provider) oxyCODONE (Roxicodone) immediate release tablet 2.5 mg(Linked Group 4) 2.5 mg, Oral, Every 4 hours PRN, moderate pain (4-6), Starting on Fri06/16/23 at 1639 151 ([facility] Hold - Provider: Automatic Transfer Provider - Reason: Patient not available)2025 ([facility] Unhold - Provider: Automatic Transfer Provider) 0924 (See Alternative - Provider: Juanjo Villalba RN) oxyCODONE (Roxicodone) immediate release tablet 5 mg(Linked Group 4) 5 mg, Oral, Every 4 hours PRN, severe pain (7-10), Starting on Fri06/16/23 at 1639 151 ([facility] Hold - Provider: Automatic Transfer Provider - Reason: Patient not available)2025 ([facility] Unhold - Provider: Automatic Transfer Provider) 0924 [...] 8 hours PRN, nausea, vomiting, Starting on 06/16/23 at 1639, 1st Line. If inadequate response [...] hours PRN, moderate pain (4-6), Starting on 06/16/23 at 1639 Or oxyCODONE (Roxicodone) immediate release [...] BE BASED ON THE PRIMARY CLINICAL RECORDS. [email or web address] provides no warranty or guarantee of the accuracy or completeness of information in this document.
[2024-09-24 09:08] LABS: Prothrombin Time Fingerstick 21.6 SEC (11.7-14.9)
== END ==
PROVIDERS: Visit Provider Internal Medicine Cardiovascular Disease
DX: Z79.01 Long term (current) use 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 (principal)
CPT/HCPCS: 36416; 85610

== ENCOUNTER → 2024-10-04 05:00 | Outpatient (REF) | payer MEDICARE, SELFPAY ==
[2024-10-04 07:50] LABS: INR Fingerstick 3.4
== END ==
PROVIDERS: Visit Provider Internal Medicine Cardiovascular Disease
DX: Z79.01 Long term (current) use 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 (principal)
CPT/HCPCS: 36416; 85610

== ENCOUNTER → 2024-10-11 | Outpatient (REF) | payer MEDICARE, SELFPAY ==
--- OUTSIDE RECORDS SUMMARY | 2024-10-11 03:37 | XMS RPT_ITS | CCD ---
Author Organization [facility] Care Team Providers Care Dough Panner Name Role Phone LISHNEVSKI, ALEXIA Unavailable Unavailable [...] LISHNEVSKI, ALEXIA Unavailable Unavailable Villa Hebert Unavailable [phone] Patito Gonzalez Unavailable Nirmal Kemp Unavailable [phone] Mohan Álvarez Unavailable [phone] Bishop, Rickey Clive Unavailable Rosemary Doran Primary Care Provider Lishnevski, Alexia Primary Care Provider Zenaida Henderson Unavailable Dr. Rosemary Doran Primary Care Provider Dr. Rosemary Doran Referring Provider Roof MOBILE PRACTICE LEAD, MOBILE PRACTICE LEAD-Adeel Arnett Attending Provider Dr. Rosemary Doran [...] Provider Dr. Betina Carver Attending Provider NADIA Hfof Attending Provider [phone] Lali Pimentel [...] Dr. White Other Provider Unavailable Horacio LENNON, Yousef Other Provider Unavailable Dr. Matthew Oro DO Other Provider Neymar LENNON, Dr. Davalos Attending Provider Dr. Kvng Ochoa DO Referring Provider Jerrica LENNON, Dr. Ny Attending Provider [phone] Jerrica LENNON, Dr. Ny Referring Provider [phone] Kvng Ochoa Primary Care Unavailable Douglas OLS, Arnold Attending Unavailable Douglas OLS, Arnold Attending Unavailable Jolliff, Alexandra S Primary Care Unavailable Ochoa OLS, Kvng Attending Unavailable Jolliff, Alexandra S Primary Care Unavailable Ochoa OLS, Kvng Attending Unavailable Jolliff, Alexandra S Primary Care Unavailable Ochoa, Kvng Primary Care Unavailable Ochoa OLS, Kvng Attending Unavailable Ochoa OLS, Kvng Referring Unavailable Jolliff, Alexandra S Primary Care Unavailable Ochoa OLS, Kvng Attending Unavailable Jolliff, Alexandra S Primary Care Unavailable Ochoa OLS, Kvng Attending Unavailable Jolliff, Alexandra S Primary Care Unavailable Ochoa OLS, Kvng Referring Unavailable Ochoa OLS, Kvng Attending Unavailable Douglas OLS, Arnold Attending Unavailable Jolliff, Alexandra S Primary Care [...] Unavailable Jolliff, Alexandra S Primary Care Unavailable Cohoa, Kvng Primary Care Unavailable Anant Juarez Referring Unavailable Anant Juarez Attending Unavailable Ochoa OLS, Kvng Primary Care Unavailable Blackmon, Anoop Referring Unavailable Neymar, Anoop Attending Unavailable Ochoa OLS, Kvng Attending Unavailable Jolliff, Alexandra S Primary Care Unavailable Ochoa, Kvng Primary Care Unavailable Adeli, Amir Consulting Unavailable Matthew Oro Admitting Unavailable Matthew Oro Attending Unavailable Zha, Janett Consulting Unavailable Carpenter, Julia Consulting Unavailable Mindel, Keyshawn Consulting Unavailable Diop, Dmitriy Consulting Unavailable Edmondson, Jaysingh Consulting Unavailable JULITA, CEDILLO Consulting Unavailable Beigel, Cara Consulting Unavailable Flynn, Lorelei Consulting Unavailable Khandker, Robinson Consulting Unavailable Maturu, Aura Consulting Unavailable Mervat, Eric Consulting Unavailable Hinduja, Camila Consulting Unavailable Kavon, Glenna Consulting Unavailable Joi, Lenin Consulting Unavailable Alexandra, Ml Consulting Unavailable Bittar, Chauncey Consulting Unavailable Hummel, Nirmal Consulting Unavailable Gusler, Rubén Consulting Unavailable Ridha, Mohamed Consulting Unavailable Zaghlouleh, Mhd Kevyn Consulting UnavailBala Iqbal Consulting Unavailable Jones, Rami Consulting Unavailable Mariaa, Daniel Consulting Unavailable Koyr, Cindy Consulting Unavailable Horacio, Jaysef Consulting Unavailable Kvng Ochoa Primary Care Unavailable Cesar Murrieta Attending Unavailable Kvng Ochoa Primary Care Unavailable Ademarion, Gerrir Consulting Unavailable Matthew Oro Admitting Unavailable Matthew Oro Attending Unavailable Zha, Janett Consulting Unavailable Carpenter, Julia Consulting Unavailable Mindel, Keyshawn Consulting Unavailable Diop, Dmitriy Consulting Unavailable Edmondson, Jaysingh Consulting Unavailable JULITA, CEDILLO Consulting Unavailable Beigel, Cara Consulting Unavailable Flynn, Lorelei Consulting Unavailable Khandker, Robinson Consulting Unavailable Maturu, Aura Consulting Unavailable Strafford, Eric Consulting Unavailable Hinduja, Camila Consulting Unavailable Kavon, Glenna Consulting Unavailable Joi, Lenin Consulting Unavailable Alexandra, Lm Consulting Unavailable Bittar, Chauncey Consulting Unavailable Nirmal Hummel Consulting Unavailable Gusdong, Rubén Consulting Unavailable Ridha, Mohamed Consulting Unavailable Zaghlouleh, Mhd Kevyn Consulting UnavailBala Iqbal Consulting Unavailable Jones, Rami Consulting Unavailable Mariaa, Daniel Consulting Unavailable Kory, Cindy Consulting Unavailable Hannadayday, Yousef Consulting Unavailable Matthew Oro Consulting Unavailable Xiao, Alexandra S Primary Care Unavailable Kvng Whalen Attending Unavailable Anant Juarez Attending Unavailable Xiao, Alexandra S Primary Care Unavailable Rosemary Doran Referring Unavailable Jolliff, Alexandra S Primary Care Unavailable Xiao, Alexandra S Referring Unavailable Douglas, Arnold Attending Unavailable Ochoa, Kvng Referring Unavailable Ochoa, Kvng Primary Care Unavailable Baddour, Anant Attending Unavailable Ochoa OLS, Kvng Attending Unavailable Jolliff, Alexandra S Primary Care Unavailable Jolliff, Alexnadra S Primary Care Unavailable Ochoa OLS, Kvng Attending Unavailable Jolliff, Alexandra S Primary Care Unavailable Ochoa OLS, Kvng Attending Unavailable Ochoa OLS, Kvng Referring Unavailable Jolliff, Alexandra S Primary Care Unavailable Ochoa OLS, Kvng Attending Unavailable Jolliff, Alexandra S Primary Care Unavailable Ochoa OLS, Kvng Attending Unavailable Ochoa OLS, Kvng Referring Unavailable Jolliff, Alexandra S Primary Care Unavailable Ochoa OLS, Kvng Attending Unavailable Douglas OLS, Cesar Attending Unavailable Jolliff, Alexandra S Primary Care Unavailable Jolliff, Alexandra S Primary Care Unavailable Baddour, Anant Attending Unavailable Jolliff, Alexandra S Primary Care Unavailable Ochoa OLS, Kvng Attending Unavailable Ochoa, Kvng Primary Care Unavailable Douglas OLS, Arnold Attending Unavailable Jolliff, Alexandra S Primary Care Unavailable Ochoa OLS, Kvng Attending Unavailable Ochoa OLS, Kvng Referring Unavailable Ochoa OLS, Kvng Attending Unavailable Jolliff, Alexandra S Primary Care Unavailable Jolliff, Alexandra S Primary Care Unavailable Ochoa OLS, Kvng Attending Unavailable Douglas OLS, Cesar Referring Unavailable Jolliff, Alexandra S Primary Care Unavailable Douglas OLS, Cesar Attending Unavailable Jolliff, Alexandra S Primary Care Unavailable Ochoa OLS, Kvng Attending Unavailable Allergies Allergy Classification Reported Allergen(s) Allergy Type Date of Onset Reaction(s) Facility (20 sources) atorvastatin; 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: [ATORVASTATIN] Drug Allergy 5 Other: See Comments [facility] Repository (20 sources) codeine; 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: [CODEINE] Drug Allergy 5 Unknown [facility] Repository (20 sources) Latex; 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: [LATEX] Propensity to adverse reactions (disorder) 5 Rash, Itching [facility] Repository (20 sources) meperidine; 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: [MEPERIDINE] Drug Allergy 5 GI Upset [facility] Repository (20 sources) rosuvastatin; 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: [ROSUVASTATIN] Drug Allergy 5 Other: See Comments [facility] Repository (20 sources) Amiodarone Drug Allergy 2 Hair falling out [facility] gobs, [facility] Amiodarone Drug Allergy [facility] Repository Medications Current Medications Medication Drug Class(es) [...] release tablet 2.5 mg polyethylene glycol 3350 [id number] mg powder for oral solution (4 sources) [...] mg PO every Friday, , , Sat January 10, 2020 11:16am January 31, 2020 [...] Long-term current use of anticoagulant; 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 [place], [place], [address] Lamotrigine (Lamictal) Level on 09-16-2024 LAMOTRIGINE 1.7 ug/mL Low 2.0-20.0 [facility] Comment on above: Result Comment: Dete ction Limit = 1.0 Performed at: [address] [id number] Cell Cleaner: Brandon Wells MD, Phone: [phone] Performed By: #### L 503.5510, L3310.0000, L3300.4400 ####[facility] [address] [place], [place], [address] Ammoniaon 09-13-2024 Ammonia (P) [Moles/Vol] 28.9 umol/L Normal 11-51 [facility] Comment on above: Performed By: #### L 503.5510, L3310.0000, L3300.4400 ####[facility] [address] [place], [place], [address] Neurology Visit Reporton Neurology Visit Report [facility] [address], [address] [place], [place] [address] OFFICE VISIT Date of Service: 09/13/24 MR#: [id number] Acct: [id number] Name: EZRA GONZALEZ Rep #: [id number] : 1935 Provider: Dr. Anant baez MD Age/Sex: 89/F Location: [facility] [place]. 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 Normal [facility] Venous blood ammonia measure mentOrdered By: Anant Juarez on 09-13-2024 Ammonia (P) [Moles/Vol] 28.9 umol/L 11-51 [facility] Lamotrigine (Lamictal) Level on 09-12-2024 LAMOTRIGINE 1.2 ug/mL Low 2.0-20.0 [facility] Comment on above: Result Comment: Dete ction Limit = 1.0 Performed at: [address] [id number] Cell Cleaner: Brandon Wells MD, Phone: [phone] Performed By: #### L 100.0100, L500.2500, L300.3900, L3300.4400 ####[facility] [address] [facility] [place], [place], [id number] Urine Cultureon 09-12-2024 [facility] Klebsiella pneumonia e sp pneum [place] Count 80,000-100,000 Klebsiella pneumoniae sp pneum: REACTION [...] TMP SMX Islt MELINDA <=20 S Normal [facility] Comment on above: Performed By: #### M 100.2200 ####[facility] [address] [facility], [place], [id number] Anion gap in Serum or Plasma Ordered By: Matthew Oro on 09-11-2024 Anion gap [Moles/Vol] 12 mmol/L 08-12 [facility] BUN/creatinine ratioOrdered By: Matthew Oro on 09-11-2024 Urea nitrogen/Creatinine [Mass ratio] 30.4 mg/mg High 01-17 [facility] Basic Metabolic Profile (BMP )on 09-11-2024 BUN/CRE 30.4 RATIO High 01-17 [facility] Comment on above: Order Comment: Comme nts: NPO at ID prior to lipid panel Performed By: #### L 500.4100, L100.0500, L500.2500 #### [facility] [address] [place], [address] Calcium [Mass/Vol] 8.8 mg/dL Normal 7.6-11.0 [facility] Comment on above: Order Comment: Comme nts: NPO at [place] prior to lipid panel Performed By: #### L 500.4100, L100.0500, L500.2500 #### [facility] [address] [place], [address] Chloride [Moles/Vol] 105 mmol/L Normal 98-108 [facility] Comment on above: Order Comment: Comme nts: NPO at MN prior to lipid panel Performed By: #### L 500.4100, L100.0500, L500.2500 #### [facility] [address] [place], [address] CO2 [Moles/Vol] 21.6 mmol/L Normal 21.0-32.0 [facility] Comment on above: Order Comment: Comme nts: NPO at MN prior to lipid panel Performed By: #### L 500.4100, L100.0500, L500.2500 #### [facility] [address] [place], [address] Creatinine [Mass/Vol] 0.91 mg/dL Normal 0.70-1.20 [facility] Comment on above: Order Comment: Comme nts: NPO at MN prior to lipid panel Performed By: #### L 500.4100, L100.0500, L500.2500 #### [facility] [address] [place], [address] ECRCL 41.34 ml/min Low 50-250 [facility] Comment on above: Order Comment: Comme nts: NPO at MN prior to lipid panel Performed By: #### L 500.4100, L100.0500, L500.2500 #### [facility] [address] [place], [address] GAP 12 Normal 5-15 [facility] Comment on above: Order Comment: Comme nts: NPO at MN prior to lipid panel Performed By: #### L 500.4100, L100.0500, L500.2500 #### [facility] [address] [place], [address] GFR/1.73 sq M.predicted among non-blacks MDRD (S/P/Bld) [Vol rate/Area] 61 mL/min/{1.73_m2} Normal >60 [facility] Comment on above: Order Comment: Comme nts: NPO at MN prior to lipid panel Result Comment: mL/m in/1.73m2 CKD-EPI Creatinine Equation (2020) Performed By: #### L 500.4100, L100.0500, L500.2500 #### [facility] [address] [place], [address] Glucose [Mass/Vol] 118 mg/dL High 70-99 [facility] Comment on above: Order Comment: Comme nts: NPO at MN prior to lipid panel Performed By: #### L 500.4100, L100.0500, L500.2500 #### [facility] [address] [place], [address] Potassium [Moles/Vol] 4.4 mmol/L Normal 3.3-5.1 [facility] Comment on above: Order Comment: Comme nts: NPO at MN prior to lipid panel Performed By: #### L 500.4100, L100.0500, L500.2500 #### [facility] [address] [place], [address] Sodium [Moles/Vol] 139 mmol/L Normal 133-145 [facility] Comment on above: Order Comment: Comme nts: NPO at MN prior to lipid panel Performed By: #### L 500.4100, L100.0500, L500.2500 #### [facility] [address] [place], [address] Urea nitrogen [Mass/Vol] 28 mg/dL High 4-19 [facility] Comment on above: Order Comment: Comme nts: NPO at ID prior to lipid panel Performed By: #### L 500.4100, L100.0500, L500.2500 #### [facility] [address] [place], [address] CBC-Complete Blood Cnt No Di ffon 09-11-2024 Erythrocyte distribution width (RBC) [Ratio] 12.8 % Normal 11.6-14.6 [facility] Comment on above: Performed By: #### L 500.4100, L100.0500, L500.2500 #### [facility] [address] [place], [address] Hematocrit (Bld) [Volume fraction] 39.7 % Normal 37-47 [facility] Comment on above: Performed By: #### L 500.4100, L100.0500, L500.2500 #### [facility] [address] [place], [address] Hemoglobin (Bld) [Mass/Vol] 13.1 g/dL Normal 12.0-15.0 [facility] Comment on above: Performed By: #### L 500.4100, L100.0500, L500.2500 #### [facility] [address] [place], [address] MCH (RBC) [Entitic mass] 30.3 pg Normal 27.0-32.0 [facility] Comment on above: Performed By: #### L 500.4100, L100.0500, L500.2500 #### [facility] [address] [place], [address] MCHC (RBC) [Mass/Vol] 33.0 g/dL Normal 32-36 [facility] Comment on above: Performed By: #### L 500.4100, L100.0500, L500.2500 #### [facility] [address] [place], [address] MCV (RBC) [Entitic vol] 91.7 fL Normal 81-99 [facility] Comment on above: Performed By: #### L 500.4100, L100.0500, L500.2500 #### [facility] [address] [place], [address] Platelet mean volume (Bld) [Entitic vol] 10.7 fL Normal 6.2-12.0 [facility] Comment on above: Performed By: #### L 500.4100, L100.0500, L500.2500 #### [facility] [address] [place], [address] Platelets (Bld) [#/Vol] 271 10*3/uL Normal 150-450 [facility] Comment on above: Performed By: #### L 500.4100, L100.0500, L500.2500 #### [facility] [address] [place], [address] RBC (Bld) [#/Vol] 4.33 10*6/uL Normal 4.2-5.4 [facility] Comment on above: Performed By: #### L 500.4100, L100.0500, L500.2500 #### [facility] [address] [place], [address] RDW SD 42.8 fl Normal 35.1-43.9 [facility] Comment on above: Performed By: #### L 500.4100, L100.0500, L500.2500 #### [facility] [address] [place], [address] WBC (Bld) [#/Vol] 12.2 10*3/uL High 4.4-11.0 [facility] Comment on above: Performed By: #### L 500.4100, L100.0500, L500.2500 #### [facility] [address] [place], [address] Calculated very low density lipoprotein (VLDL) cholesterol measurementOrdered By: Matthew Oro on 09-11-2024 Calculated very low density lipoprotein (VLDL) cholesterol measurement 16 mg/dL 5-40 [facility] Carbon dioxide, total [Moles /volume] in Central venous bloodOrdered By: Matthew Oro on 09-11-2024 CO2 [Moles/Vol] 21.6 mmol/L 21.0-32.0 [facility] Chloride assayOrdered By: Urban Oro on 09-11-2024 Chloride [Moles/Vol] 105 mmol/L 98-108 [facility] Discharge Instructionon 08-29 Discharge Instruction [facility] Medical Records Department [address] [place] [address] Instructions for Home/Discharge Instructions 09/11/24 1214 MR#: [id number] Acct: [id number] Name: EZRA GONZALEZ Rep #: [id number] : 1935 89 From: Matthew Oro DO [...] Thurman DO; Ashu Leonard MD Signed Normal [facility] Electroencephalogramon 09-11 Electroencephalogram [facility]/Neurology [address] [place] [address] MR#: [id number] Acct: [id number] Name: EZRA GONZALEZ Rep #: [id number] : 1935 89 From: Castillo Jones MD Referring Dr: Status: ADM MARIELOS Location: [facility] [id number] Date: 09/10/24 Sex: F C EEG Results Procedure Details EEG Procedure Details: Inpatient routine EEG report performed at [facility] Study start time: 1326 on [...] DO Date Dictated: 09/11/241501 Date Transcribed: 09/11/241501 Drying Frame Operator: RI Signed Normal [facility] Erythrocyte distribution wid th ratioOrdered By: Matthew Oro on 09-11-2024 Erythrocyte distribution width (RBC) [Ratio] 12.8 % 11.6-14.6 [facility] Erythrocyte distribution wid th standard deviationOrdered By: Matthew Oro on 09-11-2024 Erythrocyte distribution width (RBC) [Ratio] 42.8 fl 35.1-43.9 [facility] Glomerular filtration rate ( GFR) estimation/1.73 sq m using serum, plasma, or whole bOrdered By: Matthew Oro on 09-11-2024 GFR/1.73 sq M.predicted among non-blacks MDRD (S/P/Bld) [Vol rate/Area] 61 mL/min/{1.73_m2} >60 [facility] Comment on above: mL/min/1.73m2 CKD-EP I Creatinine Equation (2020) Hematocrit Auto (Bld) [Volum e fraction]Ordered By: Matthew Oro on 09-11-2024 Hematocrit (Bld) [Volume fraction] 39.7 % 37-47 [facility] Hemoglobin measurementOrdere d By: Matthew Oro on 09-11-2024 Hemoglobin (Bld) [Mass/Vol] 13.1 g/dL 12.0-15.0 [facility] LDL calc ser/plasOrdered By: Matthew Oro on 09-11-2024 Cholesterol in LDL [Mass/Vol] 100 mg/dL [facility] Comment on above: Qtbltsnjbj=718-636 m g/dL & Higher Vywx=518 mg/dL or greater Lipid Profileon 09-11-2024 CHOL:HDL 3.03 Normal [facility] Comment on above: Order Comment: Comme nts: NPO at ID prior to lipid panel Performed By: #### L 500.4100, L100.0500, L500.2500 #### [facility] [address] [place], [address] Cholesterol [Mass/Vol] 172 mg/dL Normal <=200 [facility] Comment on above: Order Comment: Comme nts: NPO at ID prior to lipid panel Result Comment: Chol esterol level, Desirable <200 mg/dL Borderline high cholesterol 200-239 mg/dL High cholesterol >=240 mg/dL Recommendations of the NCEP Adult Treatment Panel for the following risk-cutoff thresholds for the [place] population. Performed By: #### L 500.4100, L100.0500, L500.2500 #### [facility] [address] [place], [address] Cholesterol in HDL [Mass/Vol] 57 mg/dL Normal [facility] Comment on above: Order Comment: Comme nts: NPO at ID prior to lipid panel Result Comment: Halima onal Cholesterol Education Program (NCEP) guidelines: <40 mg/dL: Low HDL-cholesterol (major risk factor for CHD) >= 60 mg/dL: High HDL-cholesterol (negative risk factor for CHD) HDL-cholesterol is affected by a number of factors, e.g. smoking, exercise, hormones, sex and age. Performed By: #### L 500.4100, L100.0500, L500.2500 #### [facility] [address] [place], [address] Cholesterol in LDL [Mass/Vol] 100 mg/dL Normal [facility] Comment on above: Order Comment: Comme nts: NPO at ID prior to lipid panel Result Comment: Bord lxoxqy=633-744 mg/dL Higher Jsio=494 mg/dL or greater Performed By: #### L 500.4100, L100.0500, L500.2500 #### [facility] [address] [place], [address] Cholesterol in VLDL [Mass/Vol] 16 mg/dL Normal 5-40 [facility] Comment on above: Order Comment: Comme nts: NPO at [place] prior to lipid panel Performed By: #### L 500.4100, L100.0500, L500.2500 #### [facility] [address] [place], [address] Triglyceride [Mass/Vol] 78 mg/dL Normal [facility] Comment on above: Order Comment: Comme nts: NPO at ID prior to lipid panel Result Comment: The drugs N-Acetylcysteine and Metamizole may falsely depress this assay. Normal range: <150 mg/dL Borderline High: 150-199 mg/dL High: 200-499 mg/dL Very High: >500 mg/dL Performed By: #### L 500.4100, L100.0500, L500.2500 #### [facility] [address] [place], [address] MCV (mean corpuscular volume ) determinationOrdered By: Matthew Oro on 09-11-2024 MCV (RBC) [Entitic vol] 91.7 fL 81-99 [facility] Mean corpuscular hemoglobin (MCH) determinationOrdered By: Matthew Oro on 09-11-2024 MCH (RBC) [Entitic mass] 30.3 pg 27.0-32.0 [facility] Mean corpuscular hemoglobin concentration (MCHC) determinationOrdered By: Matthew Oro on 09-11-2024 MCHC (RBC) [Mass/Vol] 33.0 g/dL 32-36 [facility] Mean platelet volume determi nationOrdered By: Matthew Oro on 09-11-2024 Platelet mean volume (Bld) [Entitic vol] 10.7 fL 6.2-12.0 [facility] Platelet countOrdered By: Urban Oro on 09-11-2024 Platelets (Bld) [#/Vol] 271 10*3/uL 150-450 [facility] Potassium measurement (mass/ volume)Ordered By: Matthew Oro on 09-11-2024 Potassium (Unsp spec) [Mass/Vol] 4.4 mmol/L 3.3-5.1 [facility] RBC Auto (Bld) [#/Vol]Ordere d By: Matthew Oro on 09-11-2024 RBC (Bld) [#/Vol] 4.33 10*6/uL 4.2-5.4 [facility] Screening total cholesterol/ high density lipoprotein (HDL) cholesterol ratioOrdered By: Matthew Oro on 09-11-2024 Cholesterol.total/Cholest felipe in HDL [Mass ratio] 3.03 {ratio} [facility] Serum creatinine measurement (mass/volume)Ordered By: Matthew Oro on 09-11-2024 Creatinine [Mass/Vol] 0.91 mg/dL 0.70-1.20 [facility] Serum glucose measurement (m ass/volume)Ordered By: Matthew Oro on 09-11-2024 Glucose [Mass/Vol] 118 mg/dL High 70-99 [facility] Serum or plasma calcium viktoria urement (mass/volume)Ordered By: Matthew Oro on 09-11-2024 Calcium [Mass/Vol] 8.8 mg/dL 7.6-11.0 [facility] Serum or plasma cholesterol in HDL measurement (mass/volume)Ordered By: Matthew Oro on 09-11-2024 Cholesterol in HDL [Mass/Vol] 57 mg/dL >40 [facility] Comment on above: National Cholesterol Education Program (NCEP) guidelines:<40 mg/dL: Low HDL-cholesterol (major risk factor for CHD)>= 60 mg/dL: High HDL-cholesterol (negative risk factor for CHD)HDL-cholesterol is affected by a number of factors, e.g. smoking, exercise, hormones, sex and age. Serum or plasma cholesterol measurement (mass/volume)Ordered By: Matthew Oro on 09-11-2024 Cholesterol [Mass/Vol] 172 mg/dL <201 [facility] Comment on above: Cholesterol level, D esirable <200 mg/dLBorderline high cholesterol 200-239 mg/dLHigh cholesterol >=240 mg/dLRecommendations of the NCEP Adult Treatment Panel for the following risk-cutoff thresholds for the [place] population. Serum or plasma urea nitroge n measurement (mass/volume)Ordered By: Matthew Oro on 09-11-2024 Urea nitrogen [Mass/Vol] 28 mg/dL High 4-19 [facility] Sodium levelOrdered By: All Oro on 09-11-2024 Sodium [Moles/Vol] 139 mmol/L 133-145 [facility] Triglycerides measurementOrd ered By: Matthew Oro on 09-11-2024 Triglyceride [Mass/Vol] 78 mg/dL <199 [facility] Comment on above: The drugs N-Acetylcy steine and Metamizole may falsely depress this assay. Normal range: <150 mg/dLBorderline High: 150-199 mg/dLHigh: 200-499 mg/dLVery High: >500 mg/dL White blood cell (WBC) count Ordered By: Matthew Oro on 09-11-2024 WBC (Bld) [#/Vol] 12.2 10*3/uL High 4.4-11.0 [facility] Absolute lymphocyte countOrd ered By: Teri Garcia on 09-10-2024 Lymphocytes Auto (Unsp spec) [#/Vol] 1.91 10*3/uL 0.83-4.51 [facility] Absolute neutrophil countOrd ered By: Teri Garcia on 09-10-2024 Neutrophils (Bld) [#/Vol] 8.3 10*3/uL High 2.0-7.7 [facility] Activated partial thrombopla stin time (aPTT) in platelet poor plasma by coagulation aOrdered By: Teri Garcia on 09-10-2024 aPTT Coag (PPP) [Time] 31.8 s 24.1-36.2 [facility] Anion gap in Serum or Plasma Ordered By: Teri Garcia on 09-10-2024 Anion gap [Moles/Vol] 12 mmol/L 5-15 [facility] Automated lymphocyte count a s percentage of total leukocytesOrdered By: Teri Garcia on 09-10-2024 Lymphocytes/100 WBC Auto (Unsp spec) 16.6 % Low 19-41 [facility] BUN/creatinine ratioOrdered By: Teri Garcia on 09-10-2024 Urea nitrogen/Creatinine [Mass ratio] 34.8 mg/mg High 01-17 [facility] Basic Metabolic Profile (BMP )on 09-10-2024 BUN/CRE 34.8 RATIO High 01-17 [facility] Comment on above: Performed By: #### L 500.2500, L100.0100, L501.4021, L300.3900, L300.4310 ####[facility] [address] [place], [address] Calcium [Mass/Vol] 8.7 mg/dL Normal 7.6-11.0 [facility] Comment on above: Performed By: #### L 500.2500, L100.0100, L501.4021, L300.3900, L300.4310 ####[facility] [address] [place], [address] Chloride [Moles/Vol] 103 mmol/L Normal 98-108 [facility] Comment on above: Performed By: #### L 500.2500, L100.0100, L501.4021, L300.3900, L300.4310 ####[facility] [address] [place], [address] CO2 [Moles/Vol] 21.8 mmol/L Normal 21.0-32.0 [facility] Comment on above: Performed By: #### L 500.2500, L100.0100, L501.4021, L300.3900, L300.4310 ####[facility] [address] [place], [address] Creatinine [Mass/Vol] 1.05 mg/dL Normal 0.70-1.20 [facility] Comment on above: Performed By: #### L 500.2500, L100.0100, L501.4021, L300.3900, L300.4310 ####[facility] [address] [place], [address] ECRCL 33.63 ml/min Low 50-250 [facility] Comment on above: Performed By: #### L 500.2500, L100.0100, L501.4021, L300.3900, L300.4310 ####[facility] [address] [place], [address] GAP 12 Normal 5-15 [facility] Comment on above: Performed By: #### L 500.2500, L100.0100, L501.4021, L300.3900, L300.4310 ####[facility] [address] [place], [address] GFR/1.73 sq M.predicted among non-blacks MDRD (S/P/Bld) [Vol rate/Area] 51 mL/min/{1.73_m2} Low >60 [facility] Comment on above: Result Comment: mL/m in/1.73m2 CKD-EPI Creatinine Equation (2020) Performed By: #### L 500.2500, L100.0100, L501.4021, L300.3900, L300.4310 ####[facility] [address] [place], [address] Glucose [Mass/Vol] 131 mg/dL High 70-99 [facility] Comment on above: Performed By: #### L 500.2500, L100.0100, L501.4021, L300.3900, L300.4310 ####[facility] [address] [place], [address] Potassium [Moles/Vol] 4.4 mmol/L Normal 3.3-5.1 [facility] Comment on above: Result Comment: Hemo lysis present, Results??could be affected. ?? Performed By: #### L 500.2500, L100.0100, L501.4021, L300.3900, L300.4310 ####[facility] [address] [place], [address] Sodium [Moles/Vol] 137 mmol/L Normal 133-145 [facility] Comment on above: Performed By: #### L 500.2500, L100.0100, L501.4021, L300.3900, L300.4310 ####[facility] [address] [place], [address] Urea nitrogen [Mass/Vol] 37 mg/dL High 4-19 [facility] Comment on above: Performed By: #### L 500.2500, L100.0100, L501.4021, L300.3900, L300.4310 ####[facility] [address] [place], [address] Basophil percentageOrdered B y: Teridinorah Garcia on 09-10-2024 Basophils/100 WBC (Bld) 0.4 % 0-1 [facility] Bilirubin Test strip Ql (U)O rdered By: Terielio Garcia on 09-10-2024 Bilirubin Ql (U) Negative Negative [facility] Brain without Contraston Brain without Contrast [facility] Imaging Services [address] [place] [address] Brain without Contrast MR#: [id number] Acct: [id number] Name: EZRA GONZALEZ Rep #: [id number] : 1935 F 89 From: Matthias Márquez MD PCP: Dr. Kvng Ochoa, DO Status: ADM MARIELOS Study: Brain without Contrast Date of Exam: 09/10/24 Exam# [id number] Ordering Dr: Matthew Oro DO PROCEDURE: BRAIN [...] microvascular changes Reading [facility] CC: Dr. Matthew Oor DO; Dr. Kvng Ochoa DO Drying Frame Operator: Signed Normal [facility] CBC W/Diff, Automatedon 08-29 Absolute Lymph 1.91 X10 3/uL Normal 0.83-4.51 [facility] Comment on above: Performed By: #### L 500.2500, L100.0100, L501.4021, L300.3900, L300.4310 ####[facility] [address] [place], [address] Absolute Neut 8.3 X10 3/uL High 2.0-7.7 [facility] Comment on above: Performed By: #### L 500.2500, L100.0100, L501.4021, L300.3900, L300.4310 ####[facility] [address] [place], [address] Basophils/100 WBC (Bld) 0.4 % Normal 0-1 [facility] Comment on above: Performed By: #### L 500.2500, L100.0100, L501.4021, L300.3900, L300.4310 ####[facility] [address] [place], [address] Eosinophils/100 WBC (Bld) 1.2 % Normal 0-5 [facility] Comment on above: Performed By: #### L 500.2500, L100.0100, L501.4021, L300.3900, L300.4310 ####[facility] [address] [place], [address] Erythrocyte distribution width (RBC) [Ratio] 13.2 % Normal 11.6-14.6 [facility] Comment on above: Performed By: #### L 500.2500, L100.0100, L501.4021, L300.3900, L300.4310 ####[facility] [address] [place], [address] Hematocrit (Bld) [Volume fraction] 41.7 % Normal 37-47 [facility] Comment on above: Performed By: #### L 500.2500, L100.0100, L501.4021, L300.3900, L300.4310 ####[facility] [address] [place], [address] Hemoglobin (Bld) [Mass/Vol] 13.6 g/dL Normal 12.0-15.0 [facility] Comment on above: Performed By: #### L 500.2500, L100.0100, L501.4021, L300.3900, L300.4310 ####[facility] [address] [place], [address] IG% 0.400 Normal 0.0-0.9 [facility] Comment on above: Result Comment: IG% - Immature Granulocytes (promyelocytes, myelocytes and metamyelocytes) > 1% indicates that a LEFT SHIFT is Present. Performed By: #### L 500.2500, L100.0100, L501.4021, L300.3900, L300.4310 ####[facility] [address] [place], [address] Lymphocytes/100 WBC (Bld) 16.6 % Low 19-41 [facility] Comment on above: Performed By: #### L 500.2500, L100.0100, L501.4021, L300.3900, L300.4310 ####[facility] [address] [place], [address] MCH (RBC) [Entitic mass] 30.6 pg Normal 27.0-32.0 [facility] Comment on above: Performed By: #### L 500.2500, L100.0100, L501.4021, L300.3900, L300.4310 ####[facility] [address] [place], [address] MCHC (RBC) [Mass/Vol] 32.6 g/dL Normal 32-36 [facility] Comment on above: Performed By: #### L 500.2500, L100.0100, L501.4021, L300.3900, L300.4310 ####[facility] [address] [place], [address] MCV (RBC) [Entitic vol] 93.9 fL Normal 81-99 [facility] Comment on above: Performed By: #### L 500.2500, L100.0100, L501.4021, L300.3900, L300.4310 ####[facility] [address] [place], [address] Monocytes/100 WBC (Bld) 9.1 % Normal 0-10 [facility] Comment on above: Performed By: #### L 500.2500, L100.0100, L501.4021, L300.3900, L300.4310 ####[facility] [address] [place], [address] Neutrophils/100 WBC (Bld) 72.3 % High 47-70 [facility] Comment on above: Performed By: #### L 500.2500, L100.0100, L501.4021, L300.3900, L300.4310 ####[facility] [address] [place], [address] Nucleated RBC (Bld) [#/Vol] 0 10*3/uL Normal 0-5 [facility] Comment on above: Performed By: #### L 500.2500, L100.0100, L501.4021, L300.3900, L300.4310 ####[facility] [address] [place], [address] Platelet mean volume (Bld) [Entitic vol] 10.4 fL Normal 6.2-12.0 [facility] Comment on above: Performed By: #### L 500.2500, L100.0100, L501.4021, L300.3900, L300.4310 ####[facility] [address] [place], [address] Platelets (Bld) [#/Vol] 269 10*3/uL Normal 150-450 [facility] Comment on above: Performed By: #### L 500.2500, L100.0100, L501.4021, L300.3900, L300.4310 ####[facility] [address] [place], [address] RBC (Bld) [#/Vol] 4.44 10*6/uL Normal 4.2-5.4 [facility] Comment on above: Performed By: #### L 500.2500, L100.0100, L501.4021, L300.3900, L300.4310 ####[facility] [address] [place], [address] RDW SD 45.4 fl High 35.1-43.9 [facility] Comment on above: Performed By: #### L 500.2500, L100.0100, L501.4021, L300.3900, L300.4310 ####[facility] [address] [place], [address] WBC (Bld) [#/Vol] 11.5 10*3/uL High 4.4-11.0 [facility] Comment on above: Performed By: #### L 500.2500, L100.0100, L501.4021, L300.3900, L300.4310 ####[facility] [address] [place], [address] Carbon dioxide, total [Moles /volume] in Central venous bloodOrdered By: Teri Garcia on 09-10-2024 CO2 [Moles/Vol] 21.8 mmol/L 21.0-32.0 [facility] Chloride assayOrdered By: Antonio Garcia on 09-10-2024 Chloride [Moles/Vol] 103 mmol/L 98-108 [facility] Emergency Department Summary on 09-10-2024 Emergency Department Summary [facility] Medical Records Department [address] [place] [address] Emergency Department Summary 09/10/24 MR#: [id number] Acct: [id number] Name: EZRA GONZALEZ Rep #: [id number] : 1935 89 From: Teri Garcia DO PCP: Dr. Kvng Ochoa, DO Status:REG ER Location: ED HPI [...] son Wilfredo (her eldest son) phone number [phone]. He states that she follows with Dr. Juarez (neurology) and he suspects that this could be epileptic episodes. He also tells me that he talk to her about 615 this morning and she seemed a little off with her mentation as well as her pronunciation. 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 Normal [facility] Eosinophil percentageOrdered By: Teri Garcia on 09-10-2024 Eosinophils/100 WBC (Bld) 1.2 % 0-5 [facility] Erythrocyte distribution wid th ratioOrdered By: Teri Garcia on 09-10-2024 Erythrocyte distribution width (RBC) [Ratio] 13.2 % 11.6-14.6 [facility] Erythrocyte distribution wid th standard deviationOrdered By: Teri Garcia on 09-10-2024 Erythrocyte distribution width (RBC) [Ratio] 45.4 fl High 35.1-43.9 [facility] Glomerular filtration rate ( GFR) estimation/1.73 sq m using serum, plasma, or whole bOrdered By: Teri Garcia on 09-10-2024 GFR/1.73 sq M.predicted among non-blacks MDRD (S/P/Bld) [Vol rate/Area] 51 mL/min/{1.73_m2} Low >60 [facility] Comment on above: mL/min/1.73m2 CKD-EP I Creatinine Equation (2020) H AND P Exam - [place] 09-10-2024 H&P Exam - Hospitalist [facility] Medical Records Department [address] [place] [address] H P Exam - Hospitalist 09/10/24 1603 MR#: [id number] Acct: [id number] Name: EZRA GONZALEZ Rep #: [id number] : 1935 89 From: Matthew Oro DO PCP: Dr. Kvng Ochoa, DO Status:ADM MARIELOS Location: [place] [address] HPI - General General Date of Admission: 09/10/24 Date of Service: 09/10/24 Chief Complaint: Dysarthria HPI Narrative EZRA GONZALEZ, is a 89 F who presented to [facility] ED on 09/10/2024 with dysarthria. Patient lives at [facility] living at [place]. Has history of seizures and is on [...] acute concerns at this time. 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 Normal [facility] Hematocrit Auto (Bld) [Volum e fraction]Ordered By: Teri Garcia on 09-10-2024 Hematocrit (Bld) [Volume fraction] 41.7 % 37-47 [facility] Hemoglobin measurementOrdere d By: Teri Garcia on 09-10-2024 Hemoglobin (Bld) [Mass/Vol] 13.6 g/dL 12.0-15.0 [facility] Immature granulocytes/100 WB C Auto (Bld)Ordered By: Teri Garcia on 09-10-2024 Immature granulocytes/100 WBC (Bld) 0.400 % 0.0-0.9 [facility] Comment on above: IG% - Immature Granu locytes (promyelocytes, myelocytes and metamyelocytes) > 1% indicates that a LEFT SHIFT is Present. International normalized rat io (INR) calculationOrdered By: Teri Garcia on 09-10-2024 INR Coag (Bld) [Relative time] 2.4 {INR} [facility] Ketones Test strip Ql (U)Ord ered By: Teri Garcia on 09-10-2024 Ketones Ql (U) Negative Negative [facility] L499.0042on 09-10-2024 Trop T High Sen 17 ng/L High <=14 [facility] Comment on above: Performed By: #### L 499.0042 #### [facility] Laboratory [address] [facility] [place], [address] L499.0043on 09-10-2024 Trop T High Sen 15 ng/L High <=14 [facility] Comment on above: Performed By: #### L 499.0043 #### [facility] [address] [place], [address] L501.4021on 09-10-2024 Trop T High Sen 18 ng/L High <=14 [facility] Comment on above: Performed By: #### L 500.2500, L100.0100, L501.4021, L300.3900, L300.4310 ####[facility] [address] [facility] [place], [address] MCV (mean corpuscular volume ) determinationOrdered By: Teri Garcia on 09-10-2024 MCV (RBC) [Entitic vol] 93.9 fL 81-99 [facility] Magnetic resonance imaging r eportOrdered By: Matthias Márquez on 09-10-2024 Study report [facility] Imaging Services [address] [place] [address] Brain without Contrast MR#: [id number] Acct: [id number] Name: EZRA GONZALEZ Rep #: [id number] : 1935 F 89 From: Bill Márquez MD PCP: Dr. Kvng Ochoa DO Status: ADM MARIELOS Study:Brain without Contrast Date of Exam: 09/10/24 Exam# [id number] Ordering Dr: Matthew Patel DO PROCEDURE: BRAIN [...] Atrophy and mild microvascular changes Reading Location: [facility] CC: Dr. Matthew Oro DO; Dr. Kvng Ochoa DO ~ Drying Frame Operator: Signed [facility] Mean corpuscular hemoglobin (MCH) determinationOrdered By: Teri Garcia on 09-10-2024 MCH (RBC) [Entitic mass] 30.6 pg 27.0-32.0 [facility] Mean corpuscular hemoglobin concentration (MCHC) determinationOrdered By: Teri Garcia on 09-10-2024 MCHC (RBC) [Mass/Vol] 32.6 g/dL 32-36 [facility] Mean platelet volume determi nationOrdered By: Teri Garcia on 09-10-2024 Platelet mean volume (Bld) [Entitic vol] 10.4 fL 6.2-12.0 [facility] Microscopic analysis of urin e for red blood cells (RBC)Ordered By: Teri Garcia on 09-10-2024 Microscopic analysis of urine for red blood cells (RBC) 0 SEEN /hpf 0-5 [facility] Monocyte percentageOrdered B y: Teri Garcia on 09-10-2024 Monocytes/100 WBC (Bld) 9.1 % 0-10 [facility] Mucus LM Ql (Urine sed)Order ed By: Teri Garcia on 09-10-2024 Mucus Ql (Urine sed) 0 SEEN /hpf [facility] Neutrophil percentageOrdered By: Teri Garcia on 09-10-2024 Neutrophils/100 WBC (Bld) 72.3 % High 47-70 [facility] Nitrite Test strip Ql (U)Ord ered By: Teri Garcia on 09-10-2024 Nitrite Ql (U) Negative Negative [facility] Nucleated red blood cell per centageOrdered By: Teri Garcia on 09-10-2024 Nucleated RBC/100 WBC (Bld) [Ratio] 0 % 0-5 [facility] Partial Thromboplast Timeon 09-10-2024 aPTT Coag (Bld) [Time] 31.8 s Normal 24.1-36.2 [facility] Comment on above: Performed By: #### L 500.2500, L100.0100, L501.4021, L300.3900, L300.4310 ####[facility] [address] [place], [place], [address] Platelet countOrdered By: Antonio Garcia on 09-10-2024 Platelets (Bld) [#/Vol] 269 10*3/uL 150-450 [facility] Potassium measurement (mass/ volume)Ordered By: Teri Garcia on 09-10-2024 Potassium (Unsp spec) [Mass/Vol] 4.4 mmol/L 3.3-5.1 [facility] Comment on above: Hemolysis present, R esults could be affected. Protein Test strip Ql (U)Ord ered By: Teri Garcia on 09-10-2024 Protein Ql (U) 30 mg/dl High Negative [facility] Prothrombin Time w/INRon INR Coag (PPP) [Relative time] 2.4 {INR} Normal [facility] Comment on above: Performed By: #### L 500.2500, L100.0100, L501.4021, L300.3900, L300.4310 ####[facility] [address] [place], [place], [address] PT Coag (PPP) [Time] 26.4 s High 11.7-14.9 [facility] Comment on above: Performed By: #### L 500.2500, L100.0100, L501.4021, L300.3900, L300.4310 ####[facility] [address] [place], [address] Prothrombin timeOrdered By: Teri Garcia on 09-10-2024 PT Coag (PPP) [Time] 26.4 s High 11.7-14.9 [facility] RBC Auto (Bld) [#/Vol]Ordere d By: Teri Garcia on 09-10-2024 RBC (Bld) [#/Vol] 4.44 10*6/uL 4.2-5.4 [facility] STROKE Brain/Head without Co nton 09-10-2024 STROKE Brain/Head without Cont [facility] Imaging Services [address] [place], [place] [address] STROKE Brain/Head without Cont MR#: [id number] Acct: [id number] Name: EZRA GONZALEZ Rep #: [id number] : 1935 F 89 From: Mio nayak MD PCP: Dr. Kvng Ochoa, DO Status: [facility] ER Study: STROKE Brain/Head without Cont Date of Exam: 0 09/10/24 Exam# [id number] Ordering Dr: Teri Garcia DO PROCEDURE: STROKE [...] 2:05 pm with readback verification. Reading Location: [id number] CC: Dr. Teri Garcia DO; Dr. Kvng Ochoa DO Drying Frame Operator: Signed Normal [facility] STROKE CTA Head AND Neck W/C onon 09-10-2024 STROKE CTA Head AND Neck W/Con [facility] Imaging Services [address] [place] [address] STROKE CTA Head AND Neck W/Con MR#: [id number] Acct: [id number] Name: EZRA GONZALEZ Rep #: [id number] : 1935 F 89 From: Mio nayak MD PCP: Dr. Kvng Ochoa DO Status: REG ER Study: STROKE CTA Head AND Neck W/Con Date of Exam: 0 09/10/24 Exam# [id number] Ordering Dr: Teri Garcia DO PROCEDURE: STROKE [...] RIGHT Vertebral: Unremarkable. LEFT Vertebral: Unremarkable. Anatomy: [place] anatomy is normal. Aneurysm or [...] 3:01 pm with readback verification. Reading Location: [id number] CC: Dr. Teri Garcia DO; Dr. Kvng Ochoa DO Drying Frame Operator: Signed Normal [facility] Serum creatinine measurement (mass/volume)Ordered By: Teri Garcia on 09-10-2024 Creatinine [Mass/Vol] 1.05 mg/dL 0.70-1.20 [facility] Serum glucose measurement (m ass/volume)Ordered By: Teri Garcia on 09-10-2024 Glucose [Mass/Vol] 131 mg/dL High 70-99 [facility] Serum or plasma calcium viktoria urement (mass/volume)Ordered By: Teri Garcia on 09-10-2024 Calcium [Mass/Vol] 8.7 mg/dL 7.6-11.0 [facility] Serum or plasma urea nitroge n measurement (mass/volume)Ordered By: Teri Garcia on 09-10-2024 Urea nitrogen [Mass/Vol] 37 mg/dL High 4-19 [facility] Sodium levelOrdered By: Ollie Garcia on 09-10-2024 Sodium [Moles/Vol] 137 mmol/L 133-145 [facility] Squamous epithelial cells de tection in urine sediment by light microscopyOrdered By: Teri Garcia on 09-10-2024 Epithelial cells.squamous LM Ql (Urine sed) 0-5 SEEN /hpf 5-10 [facility] Troponin T.cardiac [Mass/vol ume] in Serum or Plasma by High sensitivity methodOrdered By: Teri Garcia on 09-10-2024 Troponin T.cardiac High sensitivity method [Mass/Vol] 15 ng/L High <14 [facility] Troponin T.cardiac High sensitivity method [Mass/Vol] 17 ng/L High <14 [facility] [facility] Troponin T.cardiac High sensitivity method [Mass/Vol] 18 ng/L High <14 [facility] Urinalysis, Completeon 09-10 BACTERIA RARE Normal None Seen [facility] Comment on above: Order Comment: RANDY CTOR TO SPECIFY Performed By: #### L 400.0001 ####[facility] [address] [facility] [address] EPI,SQUAMOUS 0-5 SEEN Normal 5-10 [facility] Comment on above: Order Comment: RANDY CTOR TO SPECIFY Performed By: #### L 400.0001 ####[facility] [address] [facility] [address] WBC 10-25 SEEN Normal 0-5 [facility] Comment on above: Order Comment: RANDY CTOR TO SPECIFY Performed By: #### L 400.0001 ####[facility] [address] [place], [address] Mucus Ql (Urine sed) 0 SEEN Normal [facility] Comment on above: Order Comment: RANDY CTOR TO SPECIFY Performed By: #### L 400.0001 ####[facility] [address] [place], [address] RBC 0 SEEN Normal 0-5 [facility] Comment on above: Order Comment: COLLE CTOR TO SPECIFY Performed By: #### L 400.0001 ####[facility] [address] [place], [address] Urine clarityOrdered By: Lashaun Garcia on 09-10-2024 Clarity (U) Clear Clear [facility] Urine color determinationOrd ered By: Teri Garcia on 09-10-2024 Color (U) Straw Yellow [facility] Urine cultureOrdered By: Lashaun Garcia on 09-10-2024 Bacteria identified Cx Nom (U) Klebsiella pneumoniae sp pneum Abnormal [facility] Urine glucose detectionOrder ed By: Teri Garcia on 09-10-2024 Glucose Ql (U) Normal mg/dl Normal [facility] Urine leukocyte esterase det ection by dipstickOrdered By: Teri Garcia on 09-10-2024 Leukocyte esterase Test strip Ql (U) 500 /ul High Negative [facility] Urine pHOrdered By: Teri romero on 09-10-2024 pH (U) 5.0 [pH] 5.0 - 8.0 [facility] Urine sediment bacteria coun t by microscopy (number/high power field)Ordered By: Teri Garcia on 09-10-2024 Bacteria LM.HPF (Urine sed) [#/Area] RARE /hpf None Seen [facility] Urine specific gravity measu rementOrdered By: Teri Garcia on 09-10-2024 Specific gravity (U) [Rel density] 1.010 1.002-1.030 [facility] Urine urobilinogen measureme ntOrdered By: Teri Garcia on 09-10-2024 Urobilinogen Ql (U) Normal mg/dl Normal [facility] White blood cell (WBC) count Ordered By: Teri Garcia on 09-10-2024 WBC (Bld) [#/Vol] 11.5 10*3/uL High 4.4-11.0 [facility] White blood cell countOrdere d By: Teri Garcia on 09-10-2024 White blood cell count 10-25 SEEN /hpf 0-5 [facility] Absolute lymphocyte countOrd ered By: Anoop Blackmon on 09-08-2024 Lymphocytes Auto (Unsp spec) [#/Vol] 2.21 10*3/uL 0.83-4.51 [facility] Absolute neutrophil countOrd ered By: Anooppierce Crewso on 09-08-2024 Neutrophils (Bld) [#/Vol] 10.3 10*3/uL High 2.0-7.7 [facility] Anion gap in Serum or Plasma Ordered By: Anoop Blackmon on 09-08-2024 Anion gap [Moles/Vol] 11 mmol/L 5-15 [facility] Automated lymphocyte count a s percentage of total leukocytesOrdered By: Anoop Blackmon on 09-08-2024 Lymphocytes/100 WBC Auto (Unsp spec) 16.2 % Low 19-41 [facility] BUN/creatinine ratioOrdered By: Anoop Blackmon on 09-08-2024 Urea nitrogen/Creatinine [Mass ratio] 35.2 mg/mg High 10-20 [facility] Basic Metabolic Profile (BMP )on 09-08-2024 BUN/CRE 35.2 RATIO High 10-20 [facility] Comment on above: Performed By: #### L 100.0100, L500.2500, L300.3900, L3300.4400 ####[facility] [address] [place], [address] Calcium [Mass/Vol] 8.9 mg/dL Normal 7.6-11.0 [facility] Comment on above: Performed By: #### L 100.0100, L500.2500, L300.3900, L3300.4400 ####[facility] [address] [place], [address] Chloride [Moles/Vol] 105 mmol/L Normal 98-108 [facility] Comment on above: Performed By: #### L 100.0100, L500.2500, L300.3900, L3300.4400 ####[facility] [address] [place], [address] CO2 [Moles/Vol] 22.4 mmol/L Normal 21.0-32.0 [facility] Comment on above: Performed By: #### L 100.0100, L500.2500, L300.3900, L3300.4400 ####[facility] [address] [place], [address] Creatinine [Mass/Vol] 1.00 mg/dL Normal 0.70-1.20 [facility] Comment on above: Performed By: #### L 100.0100, L500.2500, L300.3900, L3300.4400 ####[facility] [address] [place], [address] ECRCL 39.57 ml/min Low 50-250 [facility] Comment on above: Performed By: #### L 100.0100, L500.2500, L300.3900, L3300.4400 ####[facility] [address] [place], [address] GAP 11 Normal 5-15 [facility] Comment on above: Performed By: #### L 100.0100, L500.2500, L300.3900, L3300.4400 ####[facility] [address] [place], [address] GFR/1.73 sq M.predicted among non-blacks MDRD (S/P/Bld) [Vol rate/Area] 54 mL/min/{1.73_m2} Low >60 [facility] Comment on above: Result Comment: mL/m in/1.73m2 CKD-EPI Creatinine Equation (2020) Performed By: #### L 100.0100, L500.2500, L300.3900, L3300.4400 ####[facility] [address] [place], [address] Glucose [Mass/Vol] 149 mg/dL High 70-99 [facility] Comment on above: Performed By: #### L 100.0100, L500.2500, L300.3900, L3300.4400 ####[facility] [address] [place], [address] Potassium [Moles/Vol] 4.7 mmol/L Normal 3.3-5.1 [facility] Comment on above: Performed By: #### L 100.0100, L500.2500, L300.3900, L3300.4400 ####[facility] [address] [place], [address] Sodium [Moles/Vol] 138 mmol/L Normal 133-145 [facility] Comment on above: Performed By: #### L 100.0100, L500.2500, L300.3900, L3300.4400 ####[facility] [address] [place], [address] Urea nitrogen [Mass/Vol] 35 mg/dL High 4-19 [facility] Comment on above: Performed By: #### L 100.0100, L500.2500, L300.3900, L3300.4400 ####[facility] [address] [place], [address] Basophil percentageOrdered B y: Anoop Blackmon on 09-08-2024 Basophils/100 WBC (Bld) 0.2 % 0-1 [facility] CBC W/Diff, Automatedon 08-29 Absolute Lymph 2.21 X10 3/uL Normal 0.83-4.51 [facility] Comment on above: Performed By: #### L 100.0100, L500.2500, L300.3900, L3300.4400 #### [facility] [address] [place], [address] Absolute Neut 10.3 X10 3/uL High 2.0-7.7 [facility] Comment on above: Performed By: #### L 100.0100, L500.2500, L300.3900, L3300.4400 #### [facility] [address] [place], [address] Basophils/100 WBC (Bld) 0.2 % Normal 0-1 [facility] Comment on above: Performed By: #### L 100.0100, L500.2500, L300.3900, L3300.4400 #### [facility] [address] [place], [address] Eosinophils/100 WBC (Bld) 0.7 % Normal 0-5 [facility] Comment on above: Performed By: #### L 100.0100, L500.2500, L300.3900, L3300.4400 #### [facility] [address] [place], [address] Erythrocyte distribution width (RBC) [Ratio] 13.2 % Normal 11.6-14.6 [facility] Comment on above: Performed By: #### L 100.0100, L500.2500, L300.3900, L3300.4400 #### [facility] [address] [place], [address] Hematocrit (Bld) [Volume fraction] 41.4 % Normal 37-47 [facility] Comment on above: Performed By: #### L 100.0100, L500.2500, L300.3900, L3300.4400 #### [facility] [address] [place], [address] Hemoglobin (Bld) [Mass/Vol] 13.8 g/dL Normal 12.0-15.0 [facility] Comment on above: Performed By: #### L 100.0100, L500.2500, L300.3900, L3300.4400 #### [facility] [address] [place], [address] IG% 0.400 Normal 0.0-0.9 [facility] Comment on above: Result Comment: IG% - Immature Granulocytes (promyelocytes, myelocytes and metamyelocytes) > 1% indicates that a LEFT SHIFT is Present. Performed By: #### L 100.0100, L500.2500, L300.3900, L3300.4400 #### [facility] [address] [place], [address] Lymphocytes/100 WBC (Bld) 16.2 % Low 19-41 [facility] Comment on above: Performed By: #### L 100.0100, L500.2500, L300.3900, L3300.4400 #### [facility] [address] [place], [address] MCH (RBC) [Entitic mass] 31.4 pg Normal 27.0-32.0 [facility] Comment on above: Performed By: #### L 100.0100, L500.2500, L300.3900, L3300.4400 #### [facility] [address] [place], [address] MCHC (RBC) [Mass/Vol] 33.3 g/dL Normal 32-36 [facility] Comment on above: Performed By: #### L 100.0100, L500.2500, L300.3900, L3300.4400 #### [facility] [address] [place], [address] MCV (RBC) [Entitic vol] 94.1 fL Normal 81-99 [facility] Comment on above: Performed By: #### L 100.0100, L500.2500, L300.3900, L3300.4400 #### [facility] [address] [place], [address] Monocytes/100 WBC (Bld) 6.6 % Normal 0-10 [facility] Comment on above: Performed By: #### L 100.0100, L500.2500, L300.3900, L3300.4400 #### [facility] [address] [place], [address] Neutrophils/100 WBC (Bld) 75.9 % High 47-70 [facility] Comment on above: Performed By: #### L 100.0100, L500.2500, L300.3900, L3300.4400 #### [facility] [address] [place], [address] Nucleated RBC (Bld) [#/Vol] 0 10*3/uL Normal 0-5 [facility] Comment on above: Performed By: #### L 100.0100, L500.2500, L300.3900, L3300.4400 #### [facility] [address] [place], [address] Platelet mean volume (Bld) [Entitic vol] 10.8 fL Normal 6.2-12.0 [facility] Comment on above: Performed By: #### L 100.0100, L500.2500, L300.3900, L3300.4400 #### [facility] [address] [place], [address] Platelets (Bld) [#/Vol] 326 10*3/uL Normal 150-450 [facility] Comment on above: Performed By: #### L 100.0100, L500.2500, L300.3900, L3300.4400 #### [facility] [address] [place], [address] RBC (Bld) [#/Vol] 4.40 10*6/uL Normal 4.2-5.4 [facility] Comment on above: Performed By: #### L 100.0100, L500.2500, L300.3900, L3300.4400 #### [facility] [address] [place], [address] RDW SD 45.2 fl High 35.1-43.9 [facility] Comment on above: Performed By: #### L 100.0100, L500.2500, L300.3900, L3300.4400 #### [facility] [address] [place], [address] WBC (Bld) [#/Vol] 13.6 10*3/uL High 4.4-11.0 [facility] Comment on above: Performed By: #### L 100.0100, L500.2500, L300.3900, L3300.4400 #### [facility] [address] [place], [address] Carbon dioxide, total [Moles /volume] in Central venous bloodOrdered By: Anoop Blackmon on 09-08-2024 CO2 [Moles/Vol] 22.4 mmol/L 21.0-32.0 [facility] Chloride assayOrdered By: Monserrat Blackmon on 09-08-2024 Chloride [Moles/Vol] 105 mmol/L 98-108 [facility] Emergency Department Summary on 09-08-[address] 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 Normal [facility] Eosinophil percentageOrdered By: Anoop Blackmon on 09-08-2024 Eosinophils/100 WBC (Bld) 0.7 % 0-5 [facility] Erythrocyte distribution wid th ratioOrdered By: Anoop Blackmon on 09-08-2024 Erythrocyte distribution width (RBC) [Ratio] 13.2 % 11.6-14.6 [facility] Erythrocyte distribution wid th standard deviationOrdered By: Anoop Blackmon on 09-08-2024 Erythrocyte distribution width (RBC) [Ratio] 45.2 fl High 35.1-43.9 [facility] Glomerular filtration rate ( GFR) estimation/1.73 sq m using serum, plasma, or whole bOrdered By: Anoop Blackmon on 09-08-2024 GFR/1.73 sq M.predicted among non-blacks MDRD (S/P/Bld) [Vol rate/Area] 54 mL/min/{1.73_m2} Low >60 [facility] Comment on above: mL/min/1.73m2 CKD-EP I Creatinine Equation (2020) Hematocrit Auto (Bld) [Volum e fraction]Ordered By: Anoop Blackmon on 09-08-2024 Hematocrit (Bld) [Volume fraction] 41.4 % 37-47 [facility] Hemoglobin measurementOrdere d By: Anooppierce Blackmon on 09-08-2024 Hemoglobin (Bld) [Mass/Vol] 13.8 g/dL 12.0-15.0 [facility] Immature granulocytes/100 WB C Auto (Bld)Ordered By: Anooppierce Blackmon on 09-08-2024 Immature granulocytes/100 WBC (Bld) 0.400 % 0.0-0.9 [facility] Comment on above: IG% - Immature Granu locytes (promyelocytes, myelocytes and metamyelocytes) > 1% indicates that a LEFT SHIFT is Present. International normalized rat io (INR) calculationOrdered By: Anoop Blackmon on 09-08-2024 INR Coag (Bld) [Relative time] 2.9 {INR} [facility] MCV (mean corpuscular volume ) determinationOrdered By: Anoop Blackmon on 09-08-2024 MCV (RBC) [Entitic vol] 94.1 fL 81-99 [facility] Mean corpuscular hemoglobin (MCH) determinationOrdered By: Anooppierce Blackmon on 09-08-2024 MCH (RBC) [Entitic mass] 31.4 pg 27.0-32.0 [facility] Mean corpuscular hemoglobin concentration (MCHC) determinationOrdered By: Anooppierce Blackmon on 09-08-2024 MCHC (RBC) [Mass/Vol] 33.3 g/dL 32-36 [facility] Mean platelet volume determi nationOrdered By: Anoop Blackmon on 09-08-2024 Platelet mean volume (Bld) [Entitic vol] 10.8 fL 6.2-12.0 [facility] Monocyte percentageOrdered B y: Anooppierce Crewso on 09-08-2024 Monocytes/100 WBC (Bld) 6.6 % 0-10 [facility] Neutrophil percentageOrdered By: Anooppierce Crewso on 09-08-2024 Neutrophils/100 WBC (Bld) 75.9 % High 47-70 [facility] Nucleated red blood cell per centageOrdered By: Anooppierce Crewso on 09-08-2024 Nucleated RBC/100 WBC (Bld) [Ratio] 0 % 0-5 [facility] Platelet countOrdered By: [facility] Blackmon on 09-08-2024 Platelets (Bld) [#/Vol] 326 10*3/uL 150-450 [facility] Potassium measurement (mass/ volume)Ordered By: Anoop Blackmon on 09-08-2024 Potassium (Unsp spec) [Mass/Vol] 4.7 mmol/L 3.3-5.1 [facility] Prothrombin Time w/INRon INR Coag (PPP) [Relative time] 2.9 {INR} Normal [facility] Comment on above: Performed By: #### L 100.0100, L500.2500, L300.3900, L3300.4400 ####[facility] [address] [place], [address] PT Coag (PPP) [Time] 30.7 s High 11.7-14.9 [facility] Comment on above: Performed By: #### L 100.0100, L500.2500, L300.3900, L3300.4400 ####[facility] [address] [place], [address] Prothrombin timeOrdered By: Anoop Blackmon on 09-08-2024 PT Coag (PPP) [Time] 30.7 s High 11.7-14.9 [facility] RBC Auto (Bld) [#/Vol]Ordere d By: Anoop Blackmon on 09-08-2024 RBC (Bld) [#/Vol] 4.40 10*6/uL 4.2-5.4 [facility] Serum creatinine measurement (mass/volume)Ordered By: Anoop Blackmon on 09-08-2024 Creatinine [Mass/Vol] 1.00 mg/dL 0.70-1.20 [facility] Serum glucose measurement (m ass/volume)Ordered By: Anoop Blackmon on 09-08-2024 Glucose [Mass/Vol] 149 mg/dL High 70-99 [facility] Serum or plasma calcium viktoria urement (mass/volume)Ordered By: Anoop Blackmon on 09-08-2024 Calcium [Mass/Vol] 8.9 mg/dL 7.6-11.0 [facility] Serum or plasma lamotrigine measurement (mass/volume)Ordered By: Anooppierce Blackmon on 09-08-2024 lamoTRIgine [Mass/Vol] 1.2 ug/mL Low 2.0-20.0 [facility] Comment on above: Detection Limit = 1. 0Performed at: [facility] [employer] [id number] Director: Brandon Wells MD, Phone: [phone] Serum or plasma urea nitroge n measurement (mass/volume)Ordered By: Anoop Blackmon on 09-08-2024 Urea nitrogen [Mass/Vol] 35 mg/dL High 4-19 [facility] Sodium levelOrdered By: Anoop Blcakmon on 09-08-2024 Sodium [Moles/Vol] 138 mmol/L 133-145 [facility] White blood cell (WBC) count Ordered By: Anoop Blackmon on 09-08-2024 WBC (Bld) [#/Vol] 13.6 10*3/uL High 4.4-11.0 [facility] International normalized rat io (INR) calculationOrdered By: Cesar Cole on 08-18-2024 INR Coag (Bld) [Relative time] 2.6 {INR} [facility] Prothrombin timeOrdered By: Cesar Cole on 08-18-2024 PT Coag (PPP) [Time] 28.1 s High 11.7-14.9 [facility] International normalized rat io (INR) calculationOrdered By: Cesar Cole on 07-19-2024 INR Coag (Bld) [Relative time] 2.2 {INR} [facility] Prothrombin timeOrdered By: Cesar Cole on 07-19-2024 PT Coag (PPP) [Time] 25.3 s High 11.7-14.9 [facility] Cardiology Visit Reporton Cardiology Visit Report [facility] [address] [place] [address] OFFICE VISIT Date of Service: 07/01/24 MR#: [id number] Acct: [id number] Name: EZRA GONZALEZ Rep #: [id number] : 1935 Provider: Dr. Cesar Cole MD Age/Sex: 89/F Location: [facility] Status: Signed HPI HPI History of Present [...] atrial fibrillation. She is a reside at [facility]. 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 Normal [facility] International normalized rat io (INR) calculationOrdered By: Kvng Ochoa on 06-16-2024 INR Coag (Bld) [Relative time] 2.4 {INR} [facility] Prothrombin timeOrdered By: Kvng Ochoa on 06-16-2024 PT Coag (PPP) [Time] 26.6 s High 11.7-14.9 [facility] Absolute lymphocyte countOrd ered By: Kvng Ochoa on 06-09-2024 Lymphocytes Auto (Unsp spec) [#/Vol] 2.06 10*3/uL 0.83-4.51 [facility] Absolute neutrophil countOrd ered By: Kvng Ochoa on 06-09-2024 Neutrophils (Bld) [#/Vol] 5.6 10*3/uL 2.0-7.7 [facility] Anion gap in Serum or Plasma Ordered By: Kvng Ochoa on 06-09-2024 Anion gap [Moles/Vol] 13 mmol/L 5-15 [facility] Automated lymphocyte count a s percentage of total leukocytesOrdered By: Kvng Ochoa on 06-09-2024 Lymphocytes/100 WBC Auto (Unsp spec) 23.0 % 19-41 [facility] BUN/creatinine ratioOrdered By: Kvng Ochoa on 06-09-2024 Urea nitrogen/Creatinine [Mass ratio] 21.5 mg/mg High 10-20 [facility] Basophil percentageOrdered B y: Kvng Ochoa on 06-09-2024 Basophils/100 WBC (Bld) 0.6 % 0-1 [facility] Carbon dioxide, total [Moles /volume] in Central venous bloodOrdered By: Kvng Ochoa on 06-09-2024 CO2 [Moles/Vol] 22.4 mmol/L 21.0-32.0 [facility] Chloride assayOrdered By: Costa Ochoa on 06-09-2024 Chloride [Moles/Vol] 108 mmol/L 98-108 [facility] Eosinophil percentageOrdered By: Kvng Ochoa on 06-09-2024 Eosinophils/100 WBC (Bld) 4.8 % 0-5 [facility] Erythrocyte distribution wid th ratioOrdered By: Kvng Ochoa on 06-09-2024 Erythrocyte distribution width (RBC) [Ratio] 14.6 % 11.6-14.6 [facility] Erythrocyte distribution wid th standard deviationOrdered By: Kvng Ochoa on 06-09-2024 Erythrocyte distribution width (RBC) [Entitic vol] 49.2 fL High 35.1-43.9 [facility] Erythrocyte distribution width (RBC) [Ratio] 49.2 fl High 35.1-43.9 [facility] GFR/1.73 sq M.predicted sonia g non-blacks MDRD (S/P/Bld) [Vol rate/Area]Ordered By: Kvng Ochoa on 06-09-2024 Estimated GFR (MDRD) Non-Af Amer 59 Low >60 [facility] Comment on above: mL/min/1.73m2 CKD-EP I Creatinine Equation (2020) Glomerular filtration rate ( GFR) estimation/1.73 sq m using serum, plasma, or whole bOrdered By: Kvng Ochoa on 06-09-2024 GFR/1.73 sq M.predicted among non-blacks MDRD (S/P/Bld) [Vol rate/Area] 59 mL/min/{1.73_m2} Low >60 [facility] Comment on above: mL/min/1.73m2 CKD-EP I Creatinine Equation (2020) Hematocrit Auto (Bld) [Volum e fraction]Ordered By: Kvng Ochoa on 06-09-2024 Hematocrit (Bld) [Volume fraction] 38.3 % 37-47 [facility] Hemoglobin A1c percentageOrd ered By: Kvng Ochoa on 06-09-2024 HbA1c (Bld) [Mass fraction] 6.5 % >5.7 [facility] Hemoglobin measurementOrdere d By: Kvng Ochoa on 06-09-2024 Hemoglobin (Bld) [Mass/Vol] 12.4 g/dL 12.0-15.0 [facility] Immature granulocytes/100 WB C Auto (Bld)Ordered By: Kvng Ochoa on 06-09-2024 Immature granulocytes/100 WBC (Bld) 0.200 % 0.0-0.9 [facility] Comment on above: IG% - Immature Granu locytes (promyelocytes, myelocytes and metamyelocytes) > 1% indicates that a LEFT SHIFT is Present. Lymphocytes Auto (Unsp spec) [#/Vol]Ordered By: Kvng Ochoa on 06-09-2024 Lymphocytes (Bld) [#/Vol] 2.06 10*3/uL 0.83-4.5 1 [facility] Lymphocytes/100 WBC Auto (Un sp spec)Ordered By: Kvng Ochoa on 06-09-2024 Lymphocytes/100 WBC (Bld) 23.0 % 19-41 [facility] MCV (mean corpuscular volume ) determinationOrdered By: Kvng Ochoa on 06-09-2024 MCV (RBC) [Entitic vol] 91.8 fL 81-99 [facility] Mean corpuscular hemoglobin (MCH) determinationOrdered By: Kvng Ohcoa on 06-09-2024 MCH (RBC) [Entitic mass] 29.7 pg 27.0-32.0 [facility] Mean corpuscular hemoglobin concentration (MCHC) determinationOrdered By: Kvng Ochoa on 06-09-2024 MCHC (RBC) [Mass/Vol] 32.4 g/dL 32-36 [facility] Mean platelet volume determi nationOrdered By: Kvng Ochoa on 06-09-2024 Platelet mean volume (Bld) [Entitic vol] 10.2 fL 6.2-12.0 [facility] Monocyte percentageOrdered B y: Kvng Ochoa on 06-09-2024 Monocytes/100 WBC (Bld) 8.6 % 0-10 [facility] Neutrophil percentageOrdered By: Kvng Ochoa on 06-09-2024 Neutrophils/100 WBC (Bld) 62.8 % 47-70 [facility] Nucleated red blood cell per centageOrdered By: Kvng Ochoa on 06-09-2024 Nucleated RBC/100 WBC (Bld) [Ratio] 0 % 0-5 [facility] Platelet countOrdered By: Costa Ochoa on 06-09-2024 Platelets (Bld) [#/Vol] 323 10*3/uL 150-450 [facility] Potassium (Unsp spec) [Mass/ Vol]Ordered By: Kvng Ochoa on 06-09-2024 Potassium [Moles/Vol] 4.7 mmol/L 3.3-5.1 [facility] Potassium measurement (mass/ volume)Ordered By: Kvng Ochoa on 06-09-2024 Potassium (Unsp spec) [Mass/Vol] 4.7 mmol/L 3.3-5.1 [facility] RBC Auto (Bld) [#/Vol]Ordere d By: Kvng Ochoa on 06-09-2024 RBC (Bld) [#/Vol] 4.17 10*6/uL Low 4.2-5.4 [facility] Serum creatinine measurement (mass/volume)Ordered By: Kvng Ochoa on 06-09-2024 Creatinine [Mass/Vol] 0.94 mg/dL 0.70-1.20 [facility] Serum glucose measurement (m ass/volume)Ordered By: Kvng Ochoa on 06-09-2024 Glucose [Mass/Vol] 137 mg/dL High 70-99 [facility] Serum or plasma calcium viktoria urement (mass/volume)Ordered By: Kvng Ochoa on 06-09-2024 Calcium [Mass/Vol] 8.9 mg/dL 7.6-11.0 [facility] Serum or plasma urea nitroge n measurement (mass/volume)Ordered By: Kvng Ochoa on 06-09-2024 Urea nitrogen [Mass/Vol] 20 mg/dL High 4-19 [facility] Sodium levelOrdered By: Dru Ochoa on 06-09-2024 Sodium [Moles/Vol] 143 mmol/L 133-145 [facility] White blood cell (WBC) count Ordered By: Kvng Ochoa on 06-09-2024 WBC (Bld) [#/Vol] 9.0 10*3/uL 4.4-11.0 [facility] INR Coag (BldC) [Relative ti me]Ordered By: Cesar Cole on 05-19-2024 INR Coag (Bld) [Relative time] 2.9 {INR} [facility] Comment on above: Critical Value > 4.0 International normalized rat io (INR) measurement by fingerstickOrdered By: Cesar Cole on 05-19-2024 INR Coag (BldC) [Relative time] 2.9 [facility] Comment on above: Critical Value > 4.0 PT Coag (Bld) [Time]Ordered By: Cesar Cole on 05-19-2024 Bedside Prothrombin Time 30.4 SEC High 11.7-14.9 [facility] Whole blood prothrombin time Ordered By: Cesar Cole on 05-19-2024 PT Coag (Bld) [Time] 30.4 s High 11.7-14.9 [facility] Serum or plasma lamotrigine measurement (mass/volume)Ordered By: Anant Juarez on 05-12-2024 lamoTRIgine [Mass/Vol] 1.8 ug/mL Low 2.0-20.0 [facility] Comment on above: Detection Limit = 1. 0Performed at: [facility] [address] [id number] Director: Brandon Wells MD, Phone: [phone] Venous blood ammonia measure mentOrdered By: Anant Juarez on 05-12-2024 Ammonia (P) [Moles/Vol] 17.0 umol/L [facility] lamoTRIgine [Mass/Vol]Ordere d By: Anant Juarez on 05-12-2024 Lamotrigine (Lamictal) Level 1.8 ug/mL Low 2.0-20.0 [facility] Comment on above: Detection Limit = 1. 0Performed at: [facility] [id number] [facility], [place], [place] [id number] Director: Brandon Wells MD, Phone: [phone] Neurology Visit Reporton Neurology Visit Report [facility] [address], [address] [place] [address] OFFICE VISIT Date of Service: 05/10/24 MR#: [id number] Acct: [id number] Name: EZRA GONZALEZ Rep #: [id number] : 1935 Provider: Dr. Anant baez MD Age/Sex: 88/F Location: [facility] [place]. 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 She has become lost while driving [...] nature. Th (more content not included)... Normal [facility] INR Coag (BldC) [Relative ti me]Ordered By: Cesar Cole on 05-05-2024 INR Coag (Bld) [Relative time] 2.5 {INR} [facility] Comment on above: Critical Value > 4.0 PT Coag (Bld) [Time]Ordered By: Cesar Cole on 05-05-2024 Bedside Prothrombin Time 26.9 SEC High 11.7-14.9 [facility] International normalized rat io (INR) calculationOrdered By: Kvng Ochoa on 04-28-2024 INR Coag (Bld) [Relative time] 3.4 {INR} [facility] Prothrombin timeOrdered By: Kvng Ochoa on 04-28-2024 PT Coag (PPP) [Time] 35.4 s High 11.7-14.9 [facility] International normalized rat io (INR) calculationOrdered By: Kvng Ochoa on 04-14-2024 INR Coag (Bld) [Relative time] 3.0 {INR} [facility] Prothrombin timeOrdered By: Kvng Ochoa on 04-14-2024 PT Coag (PPP) [Time] 31.4 s High 11.7-14.9 [facility] Blood urea nitrogen (BUN)/cr eatinine ratioOrdered By: Kvng Ochoa on 04-09-2024 Urea nitrogen/Creatinine [Mass ratio] 13.5 mg/mg 01-17 [facility] Carbon dioxide measurementOr dered By: Kvng Ochoa on 04-09-2024 CO2 [Moles/Vol] 28.0 mmol/L 21.0-32.0 [facility] Chloride measurementOrdered By: Kvng Ochoa on 04-09-2024 Chloride [Moles/Vol] 106 mmol/L 98-107 [facility] Estimated glomerular filtrat ion rate (GFR) AmericanOrdered By: Kvng Ochoa on 04-09-2024 Estimated GFR (MDRD) Amer 70 mL/min >60 [facility] Comment on above: GFR Calc Glomerular filtration rate ( GFR) estimationOrdered By: Kvng Ochoa on 04-09-2024 Estimated GFR (MDRD) Non-Af Amer 58 mL/min Low >60 [facility] Comment on above: Non- GFR Calc Glucose measurementOrdered B y: Kvng Ochoa on 04-09-2024 Glucose [Mass/Vol] 116 mg/dL High 74-106 [facility] Comment on above: Fasting Glucose resu lt from 100 to 125 mg/dL suggests IMPAIRED HOMEOSTASIS per A.D.A. criteria. Potassium measurementOrdered By: Kvng Ochoa on 04-09-2024 Potassium [Moles/Vol] 4.3 mmol/L 3.5-5.1 [facility] Serum anion gap measurementO rdered By: Kvng Ochoa on 04-09-2024 Anion gap [Moles/Vol] 3 mmol/L Low 5-15 [facility] Serum or plasma calcium viktoria urement (mass/volume)Ordered By: Kvng Ochoa on 04-09-2024 Calcium [Mass/Vol] 8.8 mg/dL 8.5-10.1 [facility] Serum or plasma creatinine m easurement (mass/volume)Ordered By: Kvng Ochoa on 04-09-2024 Creatinine [Mass/Vol] 0.96 mg/dL 0.55-1.02 [facility] Comment on above: The validity of the calculated GFR & GFRAA in patients over 70 years has not been determined. Clinical correlation is essential. Serum or plasma urea nitroge n measurement (mass/volume)Ordered By: Kvng Ochoa on 04-09-2024 Urea nitrogen [Mass/Vol] 13 mg/dL 7-18 [facility] Sodium levelOrdered By: Dru Ochoa on 04-09-2024 Sodium [Moles/Vol] 137 mmol/L 136-145 [facility] International normalized rat io (INR) calculationOrdered By: Kvng Ochoa on 04-06-2024 INR Coag (Bld) [Relative time] 2.6 {INR} [facility] Prothrombin timeOrdered By: Kvng Ochoa on 04-06-2024 PT Coag (PPP) [Time] 28.8 s High 11.7-14.9 [facility] INR Coag (BldC) [Relative ti me]Ordered By: Kvng Ochoa on 04-05-2024 INR Coag (Bld) [Relative time] 3.5 {INR} [facility] Comment on above: Critical Value > 4.0 PT Coag (Bld) [Time]Ordered By: Kvng Ochoa on 04-05-2024 Bedside Prothrombin Time 35.4 SEC High 11.7-14.9 [facility] International normalized rat io (INR) calculationOrdered By: Kvng Ochoa on 03-29-2024 INR Coag (Bld) [Relative time] 1.5 {INR} [facility] Prothrombin timeOrdered By: Kvng Ochoa on 03-29-2024 PT Coag (PPP) [Time] 17.9 s High 11.7-14.9 [facility] INR Coag (BldC) [Relative ti me]Ordered By: Kvng Ochoa on 03-26-2024 INR Coag (Bld) [Relative time] 3.4 {INR} [facility] Comment on above: Critical Value > 4.0 PT Coag (Bld) [Time]Ordered By: Kvng Ochoa on 03-26-2024 Bedside Prothrombin Time 34.4 SEC High 11.7-14.9 [facility] INR Coag (BldC) [Relative ti me]Ordered By: Kvng Ochoa on 03-25-2024 INR Coag (Bld) [Relative time] 3.8 {INR} [facility] Comment on above: Critical Value > 4.0 PT Coag (Bld) [Time]Ordered By: Kvng Ochoa on 03-25-2024 Bedside Prothrombin Time 37.8 SEC High 11.7-14.9 [facility] International normalized rat io (INR) calculationOrdered By: Kvng Ochoa on 03-19-2024 INR Coag (Bld) [Relative time] 3.0 {INR} [facility] Prothrombin timeOrdered By: Kvng Ochoa on 03-19-2024 PT Coag (PPP) [Time] 30.7 s High 11.7-14.9 [facility] INR Coag (BldC) [Relative ti me]Ordered By: Kvng Ochoa on 03-17-2024 INR Coag (Bld) [Relative time] 3.3 {INR} [facility] Comment on above: Critical Value > 4.0 PT Coag (Bld) [Time]Ordered By: Kvng Ochoa on 03-17-2024 Bedside Prothrombin Time 34.2 SEC High 11.7-14.9 [facility] INR Coag (BldC) [Relative ti me]Ordered By: Kvng Ochoa on 03-10-2024 INR Coag (Bld) [Relative time] 2.4 {INR} [facility] Comment on above: Critical Value > 4.0 PT Coag (Bld) [Time]Ordered By: Kvng Ochoa on 03-10-2024 Bedside Prothrombin Time 25.4 SEC High 11.7-14.9 [facility] International normalized rat io (INR) calculationOrdered By: Kvng Ochoa on 03-08-2024 INR Coag (Bld) [Relative time] 1.8 {INR} [facility] Prothrombin timeOrdered By: Kvng Ochoa on 03-08-2024 PT Coag (PPP) [Time] 21.1 s High 11.7-14.9 [facility] INR Coag (BldC) [Relative ti me]Ordered By: Kvng Ochoa on 03-04-2024 INR Coag (Bld) [Relative time] 1.8 {INR} [facility] Comment on above: Critical Value > 4.0 PT Coag (Bld) [Time]Ordered By: Kvng Ochoa on 03-04-2024 Bedside Prothrombin Time 20.2 SEC High 11.7-14.9 [facility] INR Coag (BldC) [Relative ti me]Ordered By: Kvng Ochoa on 02-05-2024 INR Coag (Bld) [Relative time] 2.2 {INR} [facility] Comment on above: Critical Value > 4.0 PT Coag (Bld) [Time]Ordered By: Kvng Ochoa on 02-05-2024 Bedside Prothrombin Time 22.8 SEC High 11.7-14.9 [facility] Capillary blood internationa l normalized ratio (INR)Ordered By: Alexandra Hagen on 06-30-2023 INR Coag (BldC) [Relative time] 2.4 [facility] Comment on above: Critical Value > 4.0 Whole blood prothrombin time Ordered By: Alexandra Hagen on 06-30-2023 PT Coag (Bld) [Time] 24.6 s 11.7-14.9 [facility] CARECOORDon 2023 [facility] Patient Choice Patient Name: EZRA GONZALEZ Date of : 1935 06-20-2023 [facility] Site of Care Admission Date: 06/16/2023 01:38 PM Patient Name: EZRA GONZALEZ Location: [address] Date of : 1935 ------- Placement Information ------- Referral Type:Home Health Care Services - New Referral ID:[id number] [facility] Address 1:Felipe Franco Address 2: City:[place] Selection Factors:Patient/Famil y Choice State:[place] Normal [facility], pt i s requesting [...] pt order lunch. 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 . [facility] I SPOKE WITH DONOVAN, STAFF NURSE ICU RESOURCE TEAM AT [facility]. THEY CAN TAKE PT BACK TODAY. THEY CAN PROVIDE TRANSPORTATION BACK TO FACILITY AROUND 3 PM. AWARE PT WILL NEED PT AT FACILITY, THEY USE [facility] Sevar Consult HEALTH, DID LET LIAISON NOW. WENT TO [...] SECURE CHAT WITH CONNIE PEREZ REGARDING THIS. [facility] Laboratory - Chemistry and C hemistry - challengeon 06-20-2023 Glucose [Mass/Vol] 125 mg/dL High 70 - 100 mg/dL [facility] Laboratory - Coagulationon 0 06-20-2023 PT Coag (Bld) [Time] 11.3 s 9.0 - 12.[address] [facility] No Panel Informationon 06-19 Interpretation and review of laboratory results Abnormal [facility] Performed by: [facility], [address] [place] [address] CLIA ID: [id number] [facility] Radiology Study observation (narrative) Trina isabel PROTHROMBIN TIMEon INR Coag (PPP) [Relative time] 1.1 {INR} Normal 0.9-1.1 [facility] Comment on above: Result Comment: Reji [...] Infarction Performed By: #### L [id number] ####Commercial Production Editor: ALEXANDRA BUSTAMANTE ([phone])[facility])[address] [place] [address] PT Coag (PPP) [Time] 11.3 s Normal 9.0-12.0 [facility] Comment on above: Performed By: #### L [id number] ####Commercial Production Editor: ALEXANDRA BUSTAMANTE ([phone])[facility])[address] [place] [address] PT Coag (Bld) [Time]on 06-19 INR Coag (PPP) [Relative time] 1.1 {INR} 0.9 - 1.1 [facility] Comment on above: Recommended Anticoag ulant [...] Infarction Interpretation and review of laboratory results [facility] Progress Noteon 06-20-2023 Progress Note Dc via CRISTINA cot to Josep MCARTHUR with all belongings [facility] Progress Note Called report to Maryanne at [facility] Progress Note [facility] Anticoagulatio n Management Service (RIA) Inpatient Warfarin Consult HPI: Ezra Gonzalez is a 87 y.o. female admitted on 06/16/2023 for Closed displaced fracture of medial condyle of right humerus, initial encounter [S42.679E] History reviewed. No pertinent past medical history. [...] patient can be classified as high risk ([id number] = 8). 2. Monitor for s/s of bleeding and drug interactions. Will adjust dose accordingly 3. RIA will manage while inpatient Dc Lombardi, JpD Candidate Toshia Sanches, JpD, BCPS RIA is available daily [phone] via bubl Chat. If no response on bubl Chat then please page [phone]. [facility] BASIC METABOLIC PANELon 05-30 Anion gap [Moles/Vol] 11 mmol/L Normal 3-13 [facility] Comment on above: Performed By: #### L [id number] ####Commercial Production Editor: ALEXANDRA BUSTAMANTE ([phone])[facility] ([facility])[address] [place] [address] Calcium [Mass/Vol] 8.3 mg/dL Low 8.4-10.4 [facility] Comment on above: Performed By: #### L [id number] ####Commercial Production Editor: ALEXANDRA BUSTAMANTE ([phone])[facility] [place] [address] Chloride [Moles/Vol] 102 mmol/L Normal 98-107 [facility] Comment on above: Performed By: #### L [id number] ####Commercial Production Editor: ALEXANDRA BUSTAMANTE ([phone])[facility] [place] [address] CO2 [Moles/Vol] 21 mmol/L Low 22-30 [facility] Comment on above: Performed By: #### L [id number] ####Commercial Production Editor: ALEXANDRA BUSTAMANTE ([phone])[facility])[address] [place] [address] Creatinine [Mass/Vol] 0.84 mg/dL Normal 0.52-1.04 [facility] Comment on above: Performed By: #### L [id number] ####Commercial Production Editor: ALEXANDRA BUSTAMANTE ([phone])[facility] ([facility])[address] [place] [address] [place] GLOMERULAR FILTRATION RATE ML/MIN/1.73 SQ M.PREDICTED 67.4 mL/min/1.73m*2 Normal >60.0 [facility] Comment on above: Result Comment: Calc ulation based on the Chronic Kidney Disease Epidemiology Collaboration (CKD-EPI) equation refit without adjustment for race Performed By: #### L [id number] ####Commercial Production Editor: ALEXANDRA BUSTAMANTE ([phone])[facility])[address] [place] [address] [place] Glucose [Mass/Vol] 263 mg/dL High 70-100 [facility] Comment on above: Performed By: #### L [id number] ####Commercial Production Editor: ALEXANDRA [phone])[facility] Potassium [Moles/Vol] 4.7 mmol/L Normal 3.5-5.1 [facility] Comment on above: Performed By: #### L [id number] ####Commercial Production Editor: ALEXANDRA BUSTAMANTE ([phone])[facility] [place] [address] Sodium [Moles/Vol] 133 mmol/L Low 135-145 [facility] Comment on above: Performed By: #### L [id number] ####Commercial Production Editor: ALEXANDRA BUSTAMANTE ([phone])[facility] [place] [address] Urea nitrogen [Mass/Vol] 27 mg/dL High 7-17 [facility] Comment on above: Performed By: #### L [id number] ####Commercial Production Editor: ALEXANDRA BUSTAMANTE ([phone])[facility] [place] [address] Basic metabolic 1998 panelon 06-19-2023 Anion gap [Moles/Vol] 11 mmol/L 3 - 13 mmol/L [facility] Calcium [Mass/Vol] 8.3 mg/dL Low 8.4 - 10. 4 mg/dL [facility] Chloride [Moles/Vol] 102 mmol/L 98 - 10 7 mmol/L [facility] CO2 [Moles/Vol] 21 mmol/L Low 22 - 30 mmol/L [facility] Creatinine [Mass/Vol] 0.84 mg/dL 0.52 - 1.04 mg/dL [facility] GFR/1.73 sq M.predicted MDRD (S/P/Bld) [Vol rate/Area] 67.4 mL/min/{1.73_m2} - PINF [facility] Comment on above: Calculation based on the Chronic Kidney Disease Epidemiology Collaboration (CKD-EPI) equation refit without adjustment for race Glucose [Mass/Vol] 263 mg/dL High 70 - 100 mg/dL [facility] Interpretation and review of laboratory results Abnormal [facility] Potassium [Moles/Vol] 4.7 mmol/L 3.5 - 5.1 mmol/L [facility] Sodium [Moles/Vol] 133 mmol/L Low 135 - 145 mmol/L [facility] Urea nitrogen [Mass/Vol] 27 mg/dL High 7 - 17 mg/d L [facility] CARECOORDon 06-19-2023 CARECOORD DAY #1 S/P ORIF OF RIGHT ARM. WAITING FOR PT/OT EVALS FOR DC PLANNING. Normal [facility] CBC W Auto Differential pane l (Bld)Ordered By: Leona Thakur on 06-19-2023 Basophils (Bld) [#/Vol] 0.0 10*3/uL 0.0 - 0.2 10*3/uL [facility] Basophils/100 WBC (Bld) 0.2 % 0.0 - 2.0 % [facility] Eosinophils (Bld) [#/Vol] 0.0 10*3/uL 0. 0 - 0.5 10*3/uL [facility] Eosinophils/100 WBC (Bld) 0.0 % 0.0 - 6.0 % [facility] Erythrocyte distribution width (RBC) [Ratio] 13.6 % 11.5 - 15.0 % [facility] Hematocrit (Bld) [Volume fraction] 35.0 % 35.0 - 47.0 % [facility] Hemoglobin (Bld) [Mass/Vol] 11.4 g/dL Low 11.7 - 16.0 g/dL [facility] Immature granulocytes (Bld) [#/Vol] 0.1 10*3/uL High NINF - 0.1 10*3/uL [facility] Immature granulocytes/100 WBC (Bld) 0.6 % 0.0 - 2.0 % [facility] Interpretation and review of laboratory results Abnormal [facility] th Lymphocytes (Bld) [#/Vol] 0.8 10*3/uL Low 1. 0 - 4.3 10*3/uL [facility] Lymphocytes/100 WBC (Bld) 6.4 % Low 15 .0 - 45.0 % [facility] MCH (RBC) [Entitic mass] 28.6 pg 26. 0 - 34.0 pg [facility] MCHC (RBC) [Mass/Vol] 32.6 % 30.5 - 36.0 % [facility] MCV (RBC) [Entitic vol] 87.9 fL 77.0 - 99.0 fL [facility] Monocytes (Bld) [#/Vol] 0.6 10*3/uL 0.0 - 0.9 10*3/uL [facility] Monocytes/100 WBC (Bld) 4.6 % Low 5.0 - 13.0 % [facility] Neutrophils (Bld) [#/Vol] 11.2 10*3/uL High 1. 8 - 7.5 10*3/uL [facility] Neutrophils/100 WBC (Bld) 88.2 % High 38 .0 - 82.0 % [facility] Nucleated RBC/100 WBC (Bld) [Ratio] 0.0 % [facility] Platelet mean volume (Bld) [Entitic vol] 10.2 fL 9.0 - 12.7 fL [facility] Platelets (Bld) [#/Vol] 260 10*3/uL 140 - 440 10*3/uL [facility] RBC (Bld) [#/Vol] 3.98 10*6/uL 3.80 - 5.2 0 10*6/uL [facility] WBC (Bld) [#/Vol] 12.7 10*3/uL High 3.6 - 10.7 10*3/uL [facility] CBC WITH AUTO DIFFERENTIALon 06-19-2023 Basophils (Bld) [#/Vol] 0.0 10*3/uL Normal 0.0-0.2 [facility] Comment on above: Performed By: #### L [id number] ####Commercial Production Editor: ALEXANDRA [phone])[address] Basophils/100 WBC (Bld) 0.2 % Normal 0.0-2.[address] [facility] Comment on above: Performed By: #### L [id number] ####Commercial Production Editor: ALEXANDRA [phone])[address] Eosinophils (Bld) [#/Vol] 0.0 10*3/uL Normal 0.0-0.5 [facility] Comment on above: Performed By: #### L [id number] ####Commercial Production Editor: ALEXANDRA [phone])[facility])[address] [place] [address] Eosinophils/100 WBC (Bld) 0.0 % Normal 0.0-6.0 [facility] Comment on above: Performed By: #### L [id number] ####Commercial Production Editor: ALEXANDRA BUSTAMANTE ([phone])[facility])[address] [place] [address] Erythrocyte distribution width (RBC) [Ratio] 13.6 % Normal 11.5-15.0 [facility] Comment on above: Performed By: #### L [id number] ####Commercial Production Editor: ALEXANDRA BUSTAMANTE ([phone])[facility])[address] [place] [address] Hematocrit (Bld) [Volume fraction] 35.0 % Normal 35.0-47.0 [facility] Comment on above: Performed By: #### L [id number] ####Commercial Production Editor: ALEXANDRA BUSTAMANTE ([phone])[facility])[address] [place] [address] Hemoglobin (Bld) [Mass/Vol] 11.4 g/dL Low 11.7-16.0 [facility] Comment on above: Performed By: #### L [id number] ####Commercial Production Editor: ALEXANDRA BUSTAMANTE ([id number])[facility])[address] [place] [address] IMMATURE GRANS % 0.6 % Normal 0.0-2.0 [facility] Comment on above: Performed By: #### L [id number] ####Commercial Production Editor: ALEXANDRA BUSTAMANTE ([phone])[facility])[address] [place] [address] IMMATURE GRANS ABSOLUTE 0.1 10*3/uL High <0.1 [facility] Comment on above: Performed By: #### L [id number] ####Commercial Production Editor: ALEXANDRA BUSTAMANTE ([phone])[facility])[address] [place] [address] [place] Lymphocytes (Bld) [#/Vol] 0.8 10*3/uL Low 1.0-4.3 [facility] Comment on above: Performed By: #### L [id number] ####Commercial Production Editor: ALEXANDRA BUSTAMANTE ([id number])[facility])[address] [place] [address] Lymphocytes/100 WBC (Bld) 6.4 % Low 15.0-45.0 [facility] Comment on above: Performed By: #### L [id number] ####Commercial Production Editor: ALEXANDRA BUSTAMANTE ([id number])[facility])[address] [place] [address] MCH (RBC) [Entitic mass] 28.6 pg Normal 26.0-34.0 [facility] Comment on above: Performed By: #### L [id number] ####Commercial Production Editor: ALEXANDRA BUSTAMANTE ([phone])[facility])[address] [place] [address] MCHC 32.6 % Normal 30.5-36.0 [facility] Comment on above: Performed By: #### L [id number] ####Commercial Production Editor: ALEXANDRA BUSTAMANTE ([phone])[facility])[address] [place] [address] MCV (RBC) [Entitic vol] 87.9 fL Normal 77.0-99.[address] [facility] Comment on above: Performed By: #### L [id number] ####Commercial Production Editor: ALEXANDRA BUSTAMANTE ([phone])[facility])[address] [place] [address] Monocytes (Bld) [#/Vol] 0.6 10*3/uL Normal 0.0-0.9 [facility] Comment on above: Performed By: #### L [id number] ####Commercial Production Editor: ALEXANDRA BUSTAMANTE ([id number])[facility])[address] [place] [address] Monocytes/100 WBC (Bld) 4.6 % Low 5.0-13.[address] [facility] Comment on above: Performed By: #### L [id number] ####Commercial Production Editor: ALEXANDRA BUSTAMANTE ([phone])[facility])[address] [place] [address] NEUTROPHILS ABSOLUTE 11.2 10*3/uL High 1.8-7.5 [facility] Comment on above: Performed By: #### L [id number] ####Commercial Production Editor: ALEXANDRA BUSTAMANTE ([id number])[facility])[address] [place] [address] Neutrophils/100 WBC (Bld) 88.2 % High 38.0-82.0 [facility] Comment on above: Performed By: #### L [id number] ####Commercial Production Editor: ALEXANDRA BUSTAMANTE ([id number])[facility])[address] [place] [address] NRBC 0.0 /100 WBCs Normal 0.0-2.0 [facility] Comment on above: Performed By: #### L [id number] ####Commercial Production Editor: ALEXANDRA BUSTAMANTE ([id number])[facility] ([facility])[address] [place] [address] Platelet mean volume (Bld) [Entitic vol] 10.2 fL Normal 9.0-12.7 [facility] Comment on above: Performed By: #### L [id number] ####Commercial Production Editor: ALEXANDRA BUSTAMANTE ([id number])[facility])[address] [place] [address] [place] Platelets (Bld) [#/Vol] 260 10*3/uL Normal 140-440 [facility] Comment on above: Performed By: #### L [id number] ####Commercial Production Editor: ALEXANDRA BUSTAMANTE ([id number])[facility])[address] [place] [address] RBC (Bld) [#/Vol] 3.98 10*6/uL Normal 3.80-5.20 [facility] Comment on above: Performed By: #### L [id number] ####Commercial Production Editor: ALEXANDRA BUSTAMANTE ([id number])[facility] ([facility])[address] [place] [address] WBC (Bld) [#/Vol] 12.7 10*3/uL High 3.6-10.7 [facility] Comment on above: Performed By: #### L [id number] ####Commercial Production Editor: ALEXANDRA BUSTAMANTE ([id number])[facility] ([facility])[address] [place] [address] Laboratory - Chemistry and C hemistry - challengeon 06-19-2023 Glucose [Mass/Vol] 220 mg/dL High 70 - 100 mg/dL [facility] Glucose [Mass/Vol] 137 mg/dL High 70 - 100 mg/dL [facility] Glucose [Mass/Vol] 141 mg/dL High 70 - 100 mg/dL [facility] Glucose [Mass/Vol] 177 mg/dL High 70 - 100 mg/dL [facility] Laboratory - Coagulationon 0 06-19-2023 PT Coag (Bld) [Time] 11.3 s 9.0 - 12.[address] [facility] No Panel Informationon 06-18 Interpretation and review of laboratory results Abnormal [facility] th Performed by: [facility], [address] [place] [address] CLIA ID: [id number] [facility] Interpretation and review of laboratory results Abnormal [facility] th Performed by: [facility], [address] [place] [address] CLIA ID: [id number] [facility] Interpretation and review of laboratory results Abnormal [facility] th Performed by: [facility], [address] [place] [address] CLIA ID: [id number] [facility] Interpretation and review of laboratory results Abnormal [facility] th Performed by: [facility], [address] [place] [address] CLIA ID: [id number] [facility] Radiology Study observation (narrative) Summa Anish alth Radiology Study observation (narrative) Summa Anish alth Radiology Study observation (narrative) Summa Anish alth Radiology Study observation (narrative) Summhandy Oconnell alth PROTHROMBIN TIMEon INR Coag (PPP) [Relative time] 1.1 {INR} Normal 0.9-1.1 [facility] Comment on above: Result Comment: Reji [...] Infarction Performed By: #### L [id number] ####Commercial Production Editor: ALEXANDRA BUSTAMANTE ([id number])[address] PT Coag (PPP) [Time] 11.3 s Normal 9.0-12.0 [facility] Comment on above: Performed By: #### L [id number] ####Commercial Production Editor: ALEXANDRA BUSTAMANTE ([id number])[facility] ([facility])[address] [place] [address] PT Coag (Bld) [Time]on 06-18 INR Coag (PPP) [Relative time] 1.1 {INR} 0.9 - 1.1 [facility] Comment on above: Recommended Anticoag ulant [...] Care System Progress Noteon 06-19-2023 Progress Note [facility] Anticoagulatio n Management Service (RIA) Inpatient Warfarin Consult HPI: Ezra Gonzalez is a 87 y.o. female admitted on 06/16/2023 for Closed displaced fracture of medial condyle of right humerus, initial encounter [S42.215Z] History reviewed. No pertinent past medical history. [...] patient can be classified as high risk ([id number] = 8). 2. Monitor for s/s of bleeding and drug interactions. Will adjust dose accordingly 3. RIA will manage while inpatient Dc Lombardi, JpD Candidate Jp BolanosD, [employer] RIA is available daily [phone] via [employer]. If no response on bubl Chat then please page [phone]. Normal [facility] BASIC METABOLIC PANELon 03-2023 Anion gap [Moles/Vol] 10 mmol/L Normal 3-13 [facility] Comment on above: Performed By: #### L [id number] ####Commercial Production Editor: ALEXANDRA BUSTAMANTE ([id number])[address] Calcium [Mass/Vol] 8.8 mg/dL Normal 8.4-10.4 [facility] Comment on above: Performed By: #### L [id number] ####Commercial Production Editor: ALEXANDRA BUSTAMANTE ([id number])[facility] ([facility])[address] [place] [address] Chloride [Moles/Vol] 98 mmol/L Normal 98-107 [facility] Comment on above: Performed By: #### L [id number] ####Commercial Production Editor: ALEXANDRA BUSTAMANTE ([id number])[facility] ([facility])[address] [place] [address] [place] CO2 [Moles/Vol] 25 mmol/L Normal 22-30 [facility] Comment on above: Performed By: #### L [id number] ####Commercial Production Editor: ALEXANDRA BUSTAMANTE ([id number])[facility] ([facility])[address] [place] [address] Creatinine [Mass/Vol] 0.83 mg/dL Normal 0.52-1.04 [facility] Comment on above: Performed By: #### L [id number] ####Commercial Production Editor: ALEXANDRA BUSTAMANTE ([phone])[facility] ([facility])[address] [place] [address] GLOMERULAR FILTRATION RATE ML/MIN/1.73 SQ M.PREDICTED 68.3 mL/min/1.73m*2 Normal >60.0 [facility] Comment on above: Result Comment: Calc ulation based on the Chronic Kidney Disease Epidemiology Collaboration (CKD-EPI) equation refit without adjustment for race Performed By: #### L [id number] ####Commercial Production Editor: ALEXANDRA BUSTAMANTE ([id number])[facility] ([facility])[address] [place] [address] Glucose [Mass/Vol] 163 mg/dL Normal [facility] Comment on above: Performed By: #### L AB15 ####Commercial Production Editor: ALEXANDRA BUSTAMANTE ([id number])[facility])[address] [place] [address] Order Comment: If no t done within the last 3 mos Performed By: #### L [id number] ####Commercial Production Editor: ALEXANDRA BUSTAMANTE ([id number])[facility] ([facility])[address] [place] [address] [place] Potassium [Moles/Vol] 4.6 mmol/L Normal 3.5-5.1 [facility] Comment on above: Performed By: #### L [id number] ####Commercial Production Editor: ALEXANDRA BUSTAMANTE ([phone])[facility])[address] [place] [address] Sodium [Moles/Vol] 133 mmol/L Low 135-145 [facility] Comment on above: Performed By: #### L [id number] ####Commercial Production Editor: ALEXANDRA BUSTAMANTE ([id number])[facility] ([facility])[address] [place] [address] Urea nitrogen [Mass/Vol] 24 mg/dL High 7-17 [facility] Comment on above: Performed By: #### L [id number] ####Commercial Production Editor: ALEXANDRA BUSTAMANTE ([id number])[facility] ([facility])[address] [place] [address] Basic metabolic 1998 panelon 06-18-2023 Anion gap [Moles/Vol] 10 mmol/L 3 - 13 mmol/L [facility] Calcium [Mass/Vol] 8.8 mg/dL 8.4 - 10. 4 mg/dL [facility] Chloride [Moles/Vol] 98 mmol/L 98 - 10 7 mmol/L [facility] CO2 [Moles/Vol] 25 mmol/L 22 - 30 mmol/L [facility] Creatinine [Mass/Vol] 0.83 mg/dL 0.52 - 1.04 mg/dL [facility] GFR/1.73 sq M.predicted MDRD (S/P/Bld) [Vol rate/Area] 68.3 mL/min/{1.73_m2} - PINF [facility] Comment on above: Calculation based on the Chronic Kidney Disease Epidemiology Collaboration (CKD-EPI) equation refit without adjustment for race Glucose [Mass/Vol] 163 mg/dL High 70 - 100 mg/dL [facility] Interpretation and review of laboratory results Abnormal [facility] Potassium [Moles/Vol] 4.6 mmol/L 3.5 - 5.1 mmol/L [facility] Sodium [Moles/Vol] 133 mmol/L Low 135 - 145 mmol/L [facility] Urea nitrogen [Mass/Vol] 24 mg/dL High 7 - 17 mg/d L [facility] CARECOORDon 06-18-2023 [facility] Care Managment Initial Assessment Date: 06/18/2023 Patient Name: Ezra Gonzalez : 1935 Patient Information Source of Information: Patient Cognition/Language: WFL - Within Functional Limits Permission given to speak with patient patient portal representative/caregi saira as indicated: No Confirmation of Payer with patient/family: Yes Payer Name: [facility] : No Confirmation of Primary Care [...] CONTINUE TO FOLLOW. Shikha Gray RN Normal [facility] CBC W Auto Differential pane l (Bld)Ordered By: Nir Meza on 06-18-2023 Basophils (Bld) [#/Vol] 0.1 10*3/uL 0.0 - 0.2 10*3/uL [facility] Basophils/100 WBC (Bld) 0.4 % 0.0 - 2.0 % [facility] Eosinophils (Bld) [#/Vol] 0.2 10*3/uL 0. 0 - 0.5 10*3/uL [facility] Eosinophils/100 WBC (Bld) 1.3 % 0.0 - 6.0 % [facility] Erythrocyte distribution width (RBC) [Ratio] 13.8 % 11.5 - 15.0 % [facility] Hematocrit (Bld) [Volume fraction] 44.1 % 35.0 - 47.0 % [facility] Hemoglobin (Bld) [Mass/Vol] 13.9 g/dL 11.7 - 16.0 g/dL [facility] Immature granulocytes (Bld) [#/Vol] 0.1 10*3/uL High NINF - 0.1 10*3/uL [facility] Immature granulocytes/100 WBC (Bld) 0.4 % 0.0 - 2.0 % [facility] Interpretation and review of laboratory results Abnormal [facility] th Lymphocytes (Bld) [#/Vol] 2.0 10*3/uL 1. 0 - 4.3 10*3/uL [facility] Lymphocytes/100 WBC (Bld) 13.1 % Low 15 .0 - 45.0 % [facility] MCH (RBC) [Entitic mass] 28.0 pg 26. 0 - 34.0 pg [facility] MCHC (RBC) [Mass/Vol] 31.5 % 30.5 - 36.0 % [facility] MCV (RBC) [Entitic vol] 88.9 fL 77.0 - 99.0 fL [facility] Monocytes (Bld) [#/Vol] 1.4 10*3/uL High 0.0 - 0.9 10*3/uL [facility] Monocytes/100 WBC (Bld) 9.0 % 5.0 - 13.0 % [facility] Neutrophils (Bld) [#/Vol] 11.8 10*3/uL High 1. 8 - 7.5 10*3/uL [facility] Neutrophils/100 WBC (Bld) 75.8 % 38 .0 - 82.0 % [facility] Nucleated RBC/100 WBC (Bld) [Ratio] 0.0 % [facility] Platelet mean volume (Bld) [Entitic vol] 10.1 fL 9.0 - 12.7 fL [facility] Platelets (Bld) [#/Vol] 375 10*3/uL 140 - 440 10*3/uL [facility] RBC (Bld) [#/Vol] 4.96 10*6/uL 3.80 - 5.2 0 10*6/uL [facility] WBC (Bld) [#/Vol] 15.5 10*3/uL High 3.6 - 10.7 10*3/uL [facility] CBC WITH AUTO DIFFERENTIALon 06-18-2023 Basophils (Bld) [#/Vol] 0.1 10*3/uL Normal 0.0-0.2 [facility] Comment on above: Performed By: #### L [id number] ####Commercial Production Editor: ALEXANDRA BUSTAMANTE ([id number])[facility] ([facility])[address] [place] [address] Basophils/100 WBC (Bld) 0.4 % Normal 0.0-2.0 [facility] Comment on above: Performed By: #### L [id number] ####Commercial Production Editor: ALEXANDRA BUSTAMANTE ([id number])[facility])[address] [place] [address] Eosinophils (Bld) [#/Vol] 0.2 10*3/uL Normal 0.0-0.5 [facility] Comment on above: Performed By: #### L [id number] ####Commercial Production Editor: ALEXANDRA BUSTAMANTE ([id number])[facility] ([facility])[address] [place] [address] Eosinophils/100 WBC (Bld) 1.3 % Normal 0.0-6.0 [facility] Comment on above: Performed By: #### L [id number] ####Commercial Production Editor: ALEXANDRA BUSTAMANTE ([id number])[facility])[address] [place] [address] Erythrocyte distribution width (RBC) [Ratio] 13.8 % Normal 11.5-15.0 [facility] Comment on above: Performed By: #### L [id number] ####Commercial Production Editor: ALEXANDRA BUSTAMANTE ([id number])[facility])[address] [place] [address] Hematocrit (Bld) [Volume fraction] 44.1 % Normal 35.0-47.0 [facility] Comment on above: Performed By: #### L [id number] ####Commercial Production Editor: ALEXANDRA BUSTAMANTE ([id number])[facility])[address] [place] [address] Hemoglobin (Bld) [Mass/Vol] 13.9 g/dL Normal 11.7-16.0 [facility] Comment on above: Performed By: #### L [id number] ####Commercial Production Editor: ALEXANDRA BUSTAMANTE ([id number])[facility])[address] [place] [address] IMMATURE GRANS % 0.4 % Normal 0.0-2.0 [facility] Comment on above: Performed By: #### L [id number] ####Commercial Production Editor: ALEXANDRA BUSTAMANTE ([id number])[facility])[address] [place] [address] IMMATURE GRANS ABSOLUTE 0.1 10*3/uL High <0.1 [facility] Comment on above: Performed By: #### L [id number] ####Commercial Production Editor: ALEXANDRA BUSTAMANTE ([id number])[facility])[address] [place] [address] Lymphocytes (Bld) [#/Vol] 2.0 10*3/uL Normal 1.0-4.3 [facility] Comment on above: Performed By: #### L [id number] ####Commercial Production Editor: ALEXANDRA BUSTAMANTE ([id number])[facility])[address] [place] [address] Lymphocytes/100 WBC (Bld) 13.1 % Low 15.0-45.0 [facility] Comment on above: Performed By: #### L [id number] ####Commercial Production Editor: ALEXANDRA BUSTAMANTE ([id number])[facility])[address] [place] [address] MCH (RBC) [Entitic mass] 28.0 pg Normal 26.0-34.0 [facility] Comment on above: Performed By: #### L [id number] ####Commercial Production Editor: ALEXANDRA BUSTAMANTE ([id number])[facility])[address] [place] [address] MCHC 31.5 % Normal 30.5-36.0 [facility] Comment on above: Performed By: #### L [id number] ####Commercial Production Editor: ALEXANDRA BUSTAMANTE ([id number])[facility] ([facility])[address] [place] [address] MCV (RBC) [Entitic vol] 88.9 fL Normal 77.0-99.[address] [facility] Comment on above: Performed By: #### L [id number] ####Commercial Production Editor: ALEXANDRA BUSTAMANTE ([id number])[facility] ([facility])[address] [place] [address] Monocytes (Bld) [#/Vol] 1.4 10*3/uL High 0.0-0.9 [facility] Comment on above: Performed By: #### L [id number] ####Commercial Production Editor: ALEXANDRA BUSTAMANTE ([id number])[facility] ([facility])[address] [place] [address] Monocytes/100 WBC (Bld) 9.0 % Normal 5.0-13.[address] [facility] Comment on above: Performed By: #### L [id number] ####Commercial Production Editor: ALEXANDRA BUSTAMANTE ([id number])[facility] ([facility])[address] [place] [address] NEUTROPHILS ABSOLUTE 11.8 10*3/uL High 1.8-7.5 [facility] Comment on above: Performed By: #### L [id number] ####Commercial Production Editor: ALEXANDRA BUSTAMANTE ([id number])[facility] ([facility])[address] [place] [address] Neutrophils/100 WBC (Bld) 75.8 % Normal 38.0-82.0 [facility] Comment on above: Performed By: #### L [id number] ####Commercial Production Editor: ALEXANDRA BUSTAMANTE ([id number])[facility])[address] [place] [address] NRBC 0.0 /100 WBCs Normal 0.0-2.0 [facility] Comment on above: Performed By: #### L [id number] ####Commercial Production Editor: ALEXANDRA BUSTAMANTE ([id number])[facility])[address] [place] [address] Platelet mean volume (Bld) [Entitic vol] 10.1 fL Normal 9.0-12.7 [facility] Comment on above: Performed By: #### L [id number] ####Commercial Production Editor: ALEXANDRA BUSTAMANTE ([id number])[facility] ([facility])[address] [place] [address] Platelets (Bld) [#/Vol] 375 10*3/uL Normal 140-440 [facility] Comment on above: Performed By: #### L [id number] ####Commercial Production Editor: ALEXANDRA BUSTAMANTE ([id number])[facility] ([facility])[address] [place] [address] RBC (Bld) [#/Vol] 4.96 10*6/uL Normal 3.80-5.20 [facility] Comment on above: Performed By: #### L [id number] ####Commercial Production Editor: ALEXANDRA BUSTAMANTE ([id number])[facility])[address] [place] [address] WBC (Bld) [#/Vol] 15.5 10*3/uL High 3.6-10.7 [facility] Comment on above: Performed By: #### L [id number] ####Commercial Production Editor: ALEXANDRA BUSTAMANTE ([id number])[facility])[address] [place] [address] HEMOGLOBIN A1Con 06-18-2023 HbA1c (Bld) [Mass fraction] 7.3 % High <5.7 [facility] Comment on above: Order Comment: If no t done within the last 3 mos Result Comment: Norm al less than 5.7% Prediabetes 5.7% to 6.4% Diabetes 6.5% or higher --HgbA1C levels may not be accurate in patients who have renal disease, received recent blood transfusions, are anemic, or who have dyshemoglobinemia. Performed By: #### L [id number] ####Commercial Production Editor: ALEXANDRA BUSTAMANTE ([id number])[facility] ([facility])[address] [place] [address] IDNon 06-18-2023 IDN The patient is Moderately Stable - Low risk of patient condition declining or worsening The patient's goals for the shift include rest and pain control The clinical goals for the shift include rest and pain control Normal [facility] Laboratory - Chemistry and C hemistry - challengeon 06-18-2023 Glucose [Mass/Vol] 189 mg/dL High 70 - 100 mg/dL [facility] Procalcitonin [Mass/Vol] 0.06 ng/mL 0.0 0 - 0.09 ng/mL [facility] Glucose [Mass/Vol] 121 mg/dL High 70 - 100 mg/dL [facility] Average glucose Estimated from glycated hemoglobin (Bld) [Mass/Vol] 163 mg/dL [facility] - Hematology and Cell countson 06-18-2023 HbA1c (Bld) [Mass fraction] 7.3 % High NINF - 5.7 % [facility] Comment on above: Normal less than 5.7 % Prediabetes 5.7% to 6.4% Diabetes 6.5% or higher --HgbA1C levels may not be accurate in patients who have renal disease, received recent blood transfusions, are anemic, or who have dyshemoglobinemia. No Panel Informationon 06-17 Interpretation and review of laboratory results Abnormal [facility] Performed by: [facility], [address] [place] [address] CLIA ID: [id number] [facility] There is no interpretation needed for this exam. IMAGING Interpretation and review of laboratory results Abnormal [facility] Performed by: [facility], [address] [place] [id number] CLIA ID: [id number] [facility] Interpretation and review of laboratory results Abnormal [facility] Radiology Study observation (narrative) Trina isabel Radiology Study observation (narrative) Trina Oconnell alth Nursing Noteon 06-18-2023 Nursing Note Pt states no need to contact family. RN on floor states she will call pt's son,. Normal [facility] Nursing Note Patients wallet and watch locked up with security. OR notified patient states she has latex allergy Patients purse and glasses taken to pacu [facility] Op Noteon 06-18-2023 Op Note [facility] MA[facility] OR [address] [facility] [address] Dept: [phone] Loc: [phone] Operative Report Patient Name: Ezra Gonzalez Date of : 1935 Date of Surgery: 06/18/23 Pre-operative diagnosis: Right intra-articular distal humerus fracture Post-operative diagnosis: Same Procedure(s): Open reduction internal fixation of right intra-articular distal humerus fracture Surgeon: Benitez Givens M.D. Patient Account Representative(s): Lexa Aparicio M.D. Anesthesia: General and Regional [...] as well as medical complications such as [place], stroke, PE, DVT, and even . Pt [...] Lexa Aparicio MD at 06/18/23, 7:20 PM [facility] Op Note Date: 06/16/2023 - 06/18/2023 Location: [facility] Name: Ezra Gonzalez, : 1935, Diagnosis Pre-op Diagnosis * Closed displaced fracture of medial condyle of right humerus, initial encounter [S42.578W] Post-op Diagnosis * Closed displaced fracture of medial condyle of right humerus, initial encounter [S42.463U] Procedures OPEN REDUCTION INTERNAL FIXATION RIGHT DISTAL HUMERUS 482[address] - [place] [employer] HUMERAL SHFT FX W/PLATE/SCREWS W/WOCERCLAGE Surgeons * Benitez Givens - Primary Procedure Summary Anesthesia: * No anesthesia type entered * ASA: III Estimated Blood Loss: Minimal Drains: * None in log * Staff: Gas Engine Operator: Vivian Herrera RN Scrub Person: Linda [...] in 2 weeks -Ortho to follow. Normal [employer] [facility] PROCALCITONIN TESTon 06-17- 024 PROCALCITONIN 0.06 ng/mL Normal 0.00-0.09 [facility] Comment on above: Result Comment: ORDE R COMMENTS: PCT <0.50 = Low risk of severe sepsis and/or septic shock. PCT >2.00 = High risk of severe sepsis and/or septic shock. Performed By: #### L [id number] ####Commercial Production Editor: ALEXANDRA BUSTAMANTE ([id number])[facility] ([facility])[address] [place] [address] Procalcitonin [Mass/Vol]on 0 06-18-2023 Interpretation and review of laboratory results Normal [facility] PCT <0.50 = Low risk of severe sepsis and/or septic shock. PCT >2.00 = High risk of severe sepsis and/or septic shock. [facility] Progress Noteon 06-18-2023 Progress Note Nutrition rescreen completed. Chart reviewed. Patient to be monitored and followed by the diet aircraft maintenance technician. Ele Butcher, DT [facility] Progress Note OCCUPATIONAL THERAPY [facility] Name/MRN: Ezra Gonzalez ([id number]) Date: 06/18/2023 OT eval and treat order received. Patient chart reviewed. Per Ortho note, Plan for ORIF od R distal humerus. Will hold evaluation till after surgery. Louisa Cespedes, OT Normal [facility] Progress Note PHYSICAL THERAPY [facility] Name/MRN: Ezra Gonzalez ([id number]) Date: 06/18/2023 PT orders received and chart reviewed. Per ortho note, Plan for ORIF R distal humerus. Will hold and attempt following surgery. Maryanne Neumann, PT Normal [facility] ECG 12-LEADon 06-17-2023 ECG 12-LEAD IMPRESSION: Atrial fibrillation Probable left ventricular hypertrophy No previous ECG for comparison Electronically Signed On 06-17-2023 06:39:12 EDT by Thong Francois [facility] ED Nursing Noteon 06-17-2023 ED Nursing Note Patient resting in bed at this time, equal unlabored respirations noted and no acute distress, call león within reach Di Reyna RN 06/17/23 1153 [facility] ED Nursing Note Pt O2 desaturating t o mid 80s after receiving dilaudid IV. Pt placed on 2L NC and immediately back up to 95%. notified Alia Foster RN 06/17/23 1031 [facility] ED Nursing Note Pt upset with [...] US IV line. Juanjo Pringle RN 06/16/23 2209 Normal [facility] Laboratory - Chemistry and C hemistry - challengeon 06-17-2023 Glucose [Mass/Vol] 137 mg/dL High 70 - 100 mg/dL [facility] Laboratory - Coagulationon 0 06-17-2023 PT Coag (Bld) [Time] 14.5 s High 9.0 - 12.[address] [facility] No Panel Informationon 06-16 Interpretation and review of laboratory results Abnormal [facility] th Performed by: [facility], [address] [place] [address] CLIA ID: [id number] [facility] Atrial fibrillation Probable left ventricular hypertrophy No previous ECG for comparison Electronically Signed On 06-17-2023 06:39:12 EDT by Thong Arvizu D O - 06/17/2023 IMPRESSION: Atrial fibrillation Probable left ventricular hypertrophy No previous ECG for comparison Electronically Signed On 06-17-2023 06:39:12 EDT by Thong Francois [facility] Radiology Study observation (narrative) [facility] No Panel InformationOrdered By: Thong Francois on 06-17-2023 P [place] 0 degrees [facility] [employer] Work Phone: [place] Interval 0 ms [facility] [employer] Work Phone: QRS [place] -24 degrees [facility] [employer] Work Phone: QRSD Interval 103 ms [facility] h Work Phone: QT Interval 382 ms [facility] [employer] Work Phone: QTC Interval 442 ms [facility] [employer] Work Phone: T Wave [place] 31 degrees [facility] [employer] Work Phone: [facility] [employer] Work Phone: Nursing Noteon 06-17-2023 Nursing Note Patient home medication list updated, provider made aware. Normal [facility] PROTHROMBIN TIMEon INR Coag (PPP) [Relative time] 1.4 {INR} High 0.9-1.1 [facility] Comment on above: Result Comment: Reji [...] Performed By: #### L [id number] #### Commercial Production Editor: ALEXANDRA BUSTAMANTE ([id number]) [facility] [address] [place] [address] PT Coag (PPP) [Time] 14.5 s High 9.0-12.0 [facility] Comment on above: Performed By: #### L [id number] #### Commercial Production Editor: ALEXANDRA BUSTAMANTE ([phone]) [facility]) [address] [place] [address] PT Coag (Bld) [Time]on 06-16 INR Coag (PPP) [Relative time] 1.4 {INR} High 0.9 - 1.1 [facility] Comment on above: Recommended Anticoag ulant [...] tomorrow, 06/17. Ok for diet today. NPO @ID. Keep splint C/D/I. Evette Viera MD Orthopaedic Surgery, PGY-5 [id number] Normal [facility] [employer] [facility] Vital signsOrdered By: Neeta Francois on 06-17-2023 Heart rate 80 /min bpm [employer] Work Phone: XR Chest Single viewon 06-16 No acute cardiopulmonary process identified. Other chronic findings as discussed. 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 [facility] Houston Chau MD - 06/17/2023 Patient Name: [...] Electronically Signed Date/Time: 06/17/2023 12:44 AM EDT [facility] [employer] Radiology Study observation (narrative) [facility] XR Chest Single viewOrdered By: Houston Chau on 06-17-2023 [facility] [employer] Work Phone: Absolute lymphocyte countOrd ered By: Lali Pimentel on 06-16-2023 Lymphocytes Auto (Unsp spec) [#/Vol] 3.86 10*3/uL 0.83-4.51 [facility] Automated lymphocyte count a s percentage of total leukocytesOrdered By: Lali Pimentel on 06-16-2023 Lymphocytes/100 WBC Auto (Unsp spec) 23.0 % 19-41 [facility] BASIC METABOLIC PANELon 05-29 Anion gap [Moles/Vol] 7 mmol/L Normal 3-13 [facility] Comment on above: Performed By: #### L [id number] ####Commercial Production Editor: ALEXANDRA BUSTAMANTE ([phone])[facility])[address] [place] [address] Calcium [Mass/Vol] 8.6 mg/dL Normal 8.4-10.4 [facility] Comment on above: Performed By: #### L [id number] ####Commercial Production Editor: ALEXANDRA BUSTAMANTE ([phone])[facility])[address] [place] [address] [place] Chloride [Moles/Vol] 99 mmol/L Normal 98-107 [facility] Comment on above: Performed By: #### L [id number] ####Commercial Production Editor: ALEXANDRA BUSTAMANTE ([phone])[facility])[address] [place] [address] [place] CO2 [Moles/Vol] 29 mmol/L Normal 22-30 [facility] Comment on above: Performed By: #### L [id number] ####Commercial Production Editor: ALEXANDRA BUSTAMANTE ([phone])[facility])[address] [place] [address] Creatinine [Mass/Vol] 0.79 mg/dL Normal 0.52-1.04 [facility] Comment on above: Performed By: #### L [id number] ####Commercial Production Editor: ALEXANDRA BUSTAMANTE ([phone])[facility])[address] [place] [address] [place] GLOMERULAR FILTRATION RATE ML/MIN/1.73 SQ M.PREDICTED 72.5 mL/min/1.73m*2 Normal >60.0 [facility] Comment on above: Result Comment: Calc ulation based on the Chronic Kidney Disease Epidemiology Collaboration (CKD-EPI) equation refit without adjustment for race Performed By: #### L [id number] ####Commercial Production Editor: ALEXANDRA BUSTAMANTE ([phone])[facility])[address] [place] [address] [place] Glucose [Mass/Vol] 186 mg/dL High 70-100 [facility] Comment on above: Performed By: #### L [id number] ####Commercial Production Editor: ALEXANDRA BUSTAMANTE ([phone])[facility])[address] [place] [address] [place] Potassium [Moles/Vol] 4.5 mmol/L Normal 3.5-5.1 [facility] Comment on above: Performed By: #### L [id number] ####Commercial Production Editor: ALEXANDRA BUSTAMANTE ([phone])[facility])[address] [place] [address] [place] Sodium [Moles/Vol] 136 mmol/L Normal 135-145 [facility] Comment on above: Performed By: #### L [id number] ####Commercial Production Editor: ALEXNADRA BUSTAMANTE ([phone])[facility])[address] [place] [address] [place] Urea nitrogen [Mass/Vol] 26 mg/dL High 7-17 [facility] Comment on above: Performed By: #### L [id number] ####Commercial Production Editor: ALEXANDRA BUSTAMANTE ([phone])[facility] ([facility])[address] [place] [address] BLOOD TYPE AND SCREEN GELon 06-16-2023 ABO GROUPING A Normal [facility] Comment on above: Performed By: #### L [id number] ####Commercial Production Editor: ALEXANDRA BUSTAMANTE ([phone])[facility] ([facility])[address] [place] [address] RH TYPE IN BLOOD Positive Normal [facility] Comment on above: Performed By: #### L [id number] ####Commercial Production Editor: ALEXANDRA BUSTAMANTE ([phone])[facility] ([facility])[address] [place] [address] Basic metabolic 1998 panelon 06-16-2023 Anion gap [Moles/Vol] 7 mmol/L 3 - 13 mmol/L [facility] Calcium [Mass/Vol] 8.6 mg/dL 8.4 - 10. 4 mg/dL [facility] Chloride [Moles/Vol] 99 mmol/L 98 - 10 7 mmol/L [facility] CO2 [Moles/Vol] 29 mmol/L 22 - 30 mmol/L [facility] Creatinine [Mass/Vol] 0.79 mg/dL 0.52 - 1.04 mg/dL [facility] GFR/1.73 sq M.predicted MDRD (S/P/Bld) [Vol rate/Area] 72.5 mL/min/{1.73_m2} - PINF [facility] Comment on above: Calculation based on the Chronic Kidney Disease Epidemiology Collaboration (CKD-EPI) equation refit without adjustment for race Glucose [Mass/Vol] 186 mg/dL High 70 - 100 mg/dL [facility] Interpretation and review of laboratory results Abnormal [facility] Potassium [Moles/Vol] 4.5 mmol/L 3.5 - 5.1 mmol/L [facility] Sodium [Moles/Vol] 136 mmol/L 135 - 145 mmol/L [facility] Urea nitrogen [Mass/Vol] 26 mg/dL High 7 - 17 mg/d L [facility] Basophil percentageOrdered B y: Lali Pimentel on 06-16-2023 Basophils/100 WBC (Bld) 0.4 % 0-1 [facility] Chloride [Moles/Vol] 104 mmol/L 98-107 [facility] Eosinophils/100 WBC (Bld) 1.3 % 0-5 [facility] Glucose [Mass/Vol] 191 mg/dL 74-106 [facility] Comment on above: Fasting Glucose resu lt greater than or equal to 126 mg/dL suggests DIABETES MELLITUS per A.D.A. criteria. Hemoglobin (Bld) [Mass/Vol] 13.6 g/dL 12.0-15.0 [facility] Monocytes/100 WBC (Bld) 7.0 % 0-10 [facility] Neutrophils (Bld) [#/Vol] 11.4 10*3/uL 2.0-7.7 [facility] Neutrophils/100 WBC (Bld) 67.8 % 47-70 [facility] Potassium [Moles/Vol] 3.4 mmol/L 3.5-5.1 [facility] Sodium [Moles/Vol] 140 mmol/L 136-145 [facility] WBC (Bld) [#/Vol] 16.8 10*3/uL 4.4-11.0 [facility] Blood type and Crossmatch nadia ro (Bld)on 06-16-2023 Blood group antibody screen GEL Ql Negative [facility] CBC W Auto Differential pane l (Bld)on 06-16-2023 Basophils (Bld) [#/Vol] 0.0 10*3/uL 0.0 - 0.2 10*3/uL [facility] Basophils/100 WBC (Bld) 0.2 % 0.0 - 2.0 % [facility] Eosinophils (Bld) [#/Vol] 0.0 10*3/uL 0. 0 - 0.5 10*3/uL [facility] Eosinophils/100 WBC (Bld) 0.0 % 0.0 - 6.0 % [facility] Erythrocyte distribution width (RBC) [Ratio] 13.6 % 11.5 - 15.0 % [facility] Hematocrit (Bld) [Volume fraction] 38.9 % 35.0 - 47.0 % [facility] Hemoglobin (Bld) [Mass/Vol] 12.8 g/dL 11.7 - 16.0 g/dL [facility] Immature granulocytes (Bld) [#/Vol] 0.1 10*3/uL High NINF - 0.1 10*3/uL [facility] Immature granulocytes/100 WBC (Bld) 0.6 % 0.0 - 2.0 % [facility] Interpretation and review of laboratory results Abnormal [facility] th Lymphocytes (Bld) [#/Vol] 1.1 10*3/uL 1. 0 - 4.3 10*3/uL [facility] Lymphocytes/100 WBC (Bld) 6.5 % Low 15 .0 - 45.0 % [facility] MCH (RBC) [Entitic mass] 29.1 pg 26. 0 - 34.0 pg [facility] MCHC (RBC) [Mass/Vol] 32.9 % 30.5 - 36.0 % [facility] MCV (RBC) [Entitic vol] 88.4 fL 77.0 - 99.0 fL [facility] Monocytes (Bld) [#/Vol] 0.7 10*3/uL 0.0 - 0.9 10*3/uL [facility] Monocytes/100 WBC (Bld) 4.4 % Low 5.0 - 13.0 % [facility] Neutrophils (Bld) [#/Vol] 14.3 10*3/uL High 1. 8 - 7.5 10*3/uL [facility] Neutrophils/100 WBC (Bld) 88.3 % High 38 .0 - 82.0 % [facility] Nucleated RBC/100 WBC (Bld) [Ratio] 0.0 % [facility] Platelet mean volume (Bld) [Entitic vol] 9.9 fL 9.0 - 12.7 fL [facility] Platelets (Bld) [#/Vol] 357 10*3/uL 140 - 440 10*3/uL [facility] RBC (Bld) [#/Vol] 4.40 10*6/uL 3.80 - 5.2 0 10*6/uL [facility] WBC (Bld) [#/Vol] 16.2 10*3/uL High 3.6 - 10.7 10*3/uL [facility] CBC WITH AUTO DIFFERENTIALon 06-16-2023 Basophils (Bld) [#/Vol] 0.0 10*3/uL Normal 0.0-0.2 [facility] Comment on above: Performed By: #### L [id number] ####Commercial Production Editor: ALEXANDRA BUSTAMANTE ([id number])[facility])[address] [place] [address] Basophils/100 WBC (Bld) 0.2 % Normal 0.0-2.[address] [facility] Comment on above: Performed By: #### L [id number] ####Commercial Production Editor: ALEXANDRA BUSTAMANTE ([id number])[facility])[address] [place] [address] Eosinophils (Bld) [#/Vol] 0.0 10*3/uL Normal 0.0-0.5 [facility] Comment on above: Performed By: #### L [id number] ####Commercial Production Editor: ALEXANDRA BUSTAMANTE ([phone])[facility])[address] [place] [address] Eosinophils/100 WBC (Bld) 0.0 % Normal 0.0-6.0 [facility] Comment on above: Performed By: #### L [id number] ####Commercial Production Editor: ALEXANDRA BUSTAMANTE ([phone])[facility])[address] [place] [address] Erythrocyte distribution width (RBC) [Ratio] 13.6 % Normal 11.5-15.0 [facility] Comment on above: Performed By: #### L [id number] ####Commercial Production Editor: ALEXANDRA BUSTAMANTE ([phone])[facility])[address] [place] [address] Hematocrit (Bld) [Volume fraction] 38.9 % Normal 35.0-47.0 [facility] Comment on above: Performed By: #### L [id number] ####Commercial Production Editor: ALEXANDRA BUSTAMANTE ([phone])[facility])[address] [place] [address] Hemoglobin (Bld) [Mass/Vol] 12.8 g/dL Normal 11.7-16.0 [facility] Comment on above: Performed By: #### L [id number] ####Commercial Production Editor: ALEXANDRA BUSTAMANTE ([phone])[facility])[address] [place] [address] IMMATURE GRANS % 0.6 % Normal 0.0-2.0 [facility] Comment on above: Performed By: #### L [id number] ####Commercial Production Editor: ALEXANDRA BUSTAMANTE ([phone])[facility])[address] [place] [address] IMMATURE GRANS ABSOLUTE 0.1 10*3/uL High <0.1 [facility] Comment on above: Performed By: #### L [id number] ####Commercial Production Editor: ALEXANDRA BUSTAMANTE ([id number])[address] Lymphocytes (Bld) [#/Vol] 1.1 10*3/uL Normal 1.0-4.3 [facility] Comment on above: Performed By: #### L [id number] ####Commercial Production Editor: ALEXANDRA BUSTAMANTE ([phone])[facility])[address] [place] [address] Lymphocytes/100 WBC (Bld) 6.5 % Low 15.0-45.0 [facility] Comment on above: Performed By: #### L [id number] ####Commercial Production Editor: ALEXANDRA BUSTAMANTE ([id number])[facility])[address] [place] [address] MCH (RBC) [Entitic mass] 29.1 pg Normal 26.0-34.0 [facility] Comment on above: Performed By: #### L [id number] ####[employer]mercial Production Editor: ALEXANDRA BSUTAMANTE ([id number])[address] MCHC 32.9 % Normal 30.5-36.0 [facility] Comment on above: Performed By: #### L [id number] ####Commercial Production Editor: ALEXANDRA BUSTAMANTE ([phone])[facility])[address] [place] [address] MCV (RBC) [Entitic vol] 88.4 fL Normal 77.0-99.[address] [facility] Comment on above: Performed By: #### L [id number] ####Commercial Production Editor: ALEXANDRA BUSTAMANTE ([phone])[facility])[address] [place] [address] Monocytes (Bld) [#/Vol] 0.7 10*3/uL Normal 0.0-0.9 [facility] Comment on above: Performed By: #### L [id number] ####[employer]mercial [employer] Editor: ALEXANDRA BUSTAMANTE ([id number])[facility])[address] [place] [address] Monocytes/100 WBC (Bld) 4.4 % Low 5.0-13.[address] [facility] Comment on above: Performed By: #### L [id number] ####Commercial Production Editor: ALEXANDRA BUSTAMANTE ([phone])[facility])[address] [place] [address] NEUTROPHILS ABSOLUTE 14.3 10*3/uL High 1.8-7.5 [facility] Comment on above: Performed By: #### L [id number] ####[employer]mercial Production Editor: ALEXANDRA BUSTAMANTE ([phone])[facility])[address] [place] [address] Neutrophils/100 WBC (Bld) 88.3 % High 38.0-82.0 [facility] Comment on above: Performed By: #### L [id number] ####[employer]mercial Production Editor: ALEXANDRA BUSTAMANTE ([id number])[facility])[address] [place] [address] [place] NRBC 0.0 /100 WBCs Normal 0.0-2.0 [facility] Comment on above: Performed By: #### L [id number] ####[employer]mercial Production Editor: ALEXANDRA BUSTAMANTE ([id number])[facility])[address] [place] [address] Platelet mean volume (Bld) [Entitic vol] 9.9 fL Normal 9.0-12.7 [facility] Comment on above: Performed By: #### L [id number] ####Commercial Production Editor: ALEXANDRA BUSTAMANTE ([id number])[facility])[address] [place] [address] Platelets (Bld) [#/Vol] 357 10*3/uL Normal 140-440 [facility] Comment on above: Performed By: #### L [id number] ####Commercial Production Editor: ALEXANDRA BUSTAMANTE ([id number])[facility])[address] [place] [address] RBC (Bld) [#/Vol] 4.40 10*6/uL Normal 3.80-5.20 [facility] Comment on above: Performed By: #### L [id number] ####Commercial Production Editor: ALEXANDRA BUSTAMANTE ([phone])[facility])[address] [place] [address] WBC (Bld) [#/Vol] 16.2 10*3/uL High 3.6-10.7 [facility] Comment on above: Performed By: #### L [id number] ####[employer]mercial Production Editor: ALEXANDRA BUSTAMANTE ([id number])[facility])[address] [place] [address] CT ELBOW RIGHT WO IV CONTRAS Ton 06-16-2023 CT ELBOW RIGHT WO IV CONTRAST Patient Name: [facility]ZRA [facility] 1935 [id number] Exam Date/Time: 06/16/2023 18:01 Procedure: CT ELBOW [...] Injury (Pt arrives via [facility] from [facility] with complaints of right elbow fracture. Patient was sent here for ortho consult. No pain on arrival. Arrives with right arm splinted.)Closed displaced fracture of medial condyle of right humerus, initial encounter Normal [facility] CT Elbow - right WO contrast on 06-16-2023 Impression: Extensively comminuted supracondylar humerus fracture. The fracture has multiple foci of articular extension to the lateral and central aspect of the condyle. Report Dictated on Electronically Signed By: Pastor Francisco MD Electronically Signed Date/Time: 06/16/2023 6:13 PM T [facility] Patient Name: EZRA GONZALEZ : 1935 [id number] Exam Date/Time: 06/16/2023 18:01 Procedure: CT ELBOW [...] process fracture. Joint effusion. Decreased osseous mineralization. [facility] Pastor Francisco MD - 06/16/2023 Patient [...] Electronically Signed Date/Time: 06/16/2023 6:13 PM EDT [facility] Radiology Study observation (narrative) [facility] chalo Consulton 06-16-2023 Consult Ortho Consult Patient: Ezra Gonzalez Date of : 1935 Acct: [id number] PCP: No primary care provider on file. Date of Admission: 06/16/2023 Date of Service: Pt seen/examined on 06/16/2023 Chief Complaint: right distal humerus fracture History Of Present Illness: This is a 87 y.o. right hand dominant female who presents with a right distal humerus fracture after a fall at home. Patient originally presented to [facility] where she was splinted and transferred to [facility] ED for ortho eval. Patient denies numbness, tingling, or weakness. Denies pain elsewhere and denies head trauma or LOC. 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 Patient has prior ortho surgery history of bilateral TKAs and right shoulder surgery, left carpal tunnel release, all at [facility]. Denies alcohol, tobacco, drug use. Patient ambulation [...] RH, LAB (more content not included)... Normal [facility] Determination of erythrocyte mean corpuscular volume (MCV)Ordered By: Lali Pimentel on 06-16-2023 MCV (RBC) [Entitic vol] 90.3 fL 81-99 [facility] ED Provider Noteon ED Provider Note Emergency Department Encounter [facility] EMERGENCY DEPT Patient: Ezra Gonzalez : [...] [employer] Sae Conde MD 06/16/23 1626 [facility] ED Provider Note EMERGENCY DEPARTMENT ENCOUNTER Pt Name: Ezra Gonzalez Birthdate 1935 Date of evaluation: 06/16/2023 ED Provider: NADIA Ruiz CHIEF COMPLAINT Chief Complaint Patient presents with Arm Injury Pt arrives via physician's ambulance from [facility] with complaints of right elbow fracture. Patient [...] injury anywhere else. Patient was evaluated at [facility] emergency department prior to arrival and was noted to have a distal humerus fracture. Patient was transferred to [facility] ED for orthopedic consultation. Patient denies [...] 4.4 (*) (more content not included)... Normal [facility] Erythrocyte distribution wid th ratioOrdered By: Lali Pimentel on 06-16-2023 Erythrocyte distribution width (RBC) [Ratio] 13.3 % 11.6-14.6 [facility] Erythrocyte distribution wid th standard deviationOrdered By: Lali Pimentel on 06-16-2023 Erythrocyte distribution width (RBC) [Entitic vol] 43.9 fL 35.1-43.9 [facility] Hematocrit Auto (Bld) [Volum e fraction]Ordered By: Lali Pimentel on 06-16-2023 Hematocrit (Bld) [Volume fraction] 42.6 % 37-47 [facility] Immature granulocytes/100 WB C Auto (Bld)Ordered By: Lali Pimentel on 06-16-2023 Immature granulocytes/100 WBC (Bld) 0.500 % 0.0-0.9 [facility] Comment on above: IG% - Immature Granu locytes (promyelocytes, myelocytes and metamyelocytes) > 1% indicates that a LEFT SHIFT is Present. Laboratory - Blood bankon ABO group Nom (Bld) A [facility] [employer] D Ag Ql (RBC) Positive [facility] - Chemistry and C hemistry - challengeOrdered By: Lali Pimentel on 06-16-2023 CO2 [Moles/Vol] 31.0 mmol/L 21.0-32.0 [facility] Urea nitrogen/Creatinine [Mass ratio] 20.9 mg/mg 10-20 [facility] Laboratory - Coagulationon 0 06-16-2023 PT Coag (Bld) [Time] 22.3 s High 9.0 - 12.[address] [facility] Laboratory - CoagulationOrde red By: Lali Pimentel on 06-16-2023 INR Coag (Bld) [Relative time] 2.2 {INR} [facility] PT Coag (PPP) [Time] 24.3 s 11.7-14.9 [facility] Laboratory - Hematology and Cell countsOrdered By: Lali Pimentel on 06-16-2023 MCH (RBC) [Entitic mass] 28.8 pg 27.0-32.0 [facility] MCHC (RBC) [Mass/Vol] 31.9 g/dL 32-36 [facility] Nucleated RBC/100 WBC (Bld) [Ratio] 0 % 0-5 [facility] Platelet mean volume (Bld) [Entitic vol] 9.9 fL 6.2-12.0 [facility] Platelets (Bld) [#/Vol] 414 10*3/uL 150-450 [facility] No Panel Informationon 06-15 [facility] No Panel InformationOrdered By: Lali Pimentel on 06-16-2023 Estimated Creatinine Clearance Calc 35.56 ml/min [facility] Estimated GFR (MDRD) Amer 57 mL/min >60 [facility] Comment on above: GFR Calc Estimated GFR (MDRD) Non-Af Amer 47 mL/min >60 [facility] Comment on above: Non- GFR Calc PROTHROMBIN TIMEon INR Coag (PPP) [Relative time] 2.2 {INR} High 0.9-1.1 [facility] Comment on above: Result Comment: Reji [...] Infarction Performed By: #### L [id number] ####[employer] Editor: ALEXANDRA BUSTAMANTE ([id number])[address] PT Coag (PPP) [Time] 22.3 s High 9.0-12.0 [facility] Comment on above: Performed By: #### L [id number] ####Commercial Production Editor: ALEXANDRA BUSTAMANTE ([phone])[address] PT Coag (Bld) [Time]on 06-15 INR Coag (PPP) [Relative time] 2.2 {INR} High 0.9 - 1.1 [facility] Comment on above: Recommended Anticoag ulant [...] 06-16-2023 RBC (Bld) [#/Vol] 4.72 10*6/uL 4.2-5.4 [facility] Serum or plasma calcium viktoria urement (mass/volume)Ordered By: Lali Pimentel on 06-16-2023 Calcium [Mass/Vol] 8.8 mg/dL 8.5-10.1 [facility] Serum or plasma creatinine m easurement (mass/volume)Ordered By: Lali Pimentel on 06-16-2023 Creatinine [Mass/Vol] 1.15 mg/dL 0.55-1.02 [facility] Comment on above: The validity of the calculated GFR & GFRAA in patients over 70 years has not been determined. Clinical correlation is essential. Serum or plasma urea nitroge n measurement (mass/volume)Ordered By: Lali Pimentel on 06-16-2023 Urea nitrogen [Mass/Vol] 24 mg/dL - [facility] Thin prep Papanicolaou smear with manual screeningOrdered By: Lali Pimentel on 06-16-2023 Thin prep Papanicolaou smear with manual screening 5 5- [facility] XR Elbow - right 2 Viewson 0 06-16-2023 [facility] Name[facility] 1935 [id number] Exam Date/Time: 06/16/2023 15:20 Procedure: XR ELBOW [...] Electronically Signed Date/Time: 06/16/2023 3:38 PM EDT [facility] Sae Dudley MD - 06/16/2023 Patient Name: EZRA [facility]Z [facility] 1935 [id number] Exam Date/Time: 06/16/2023 15:20 Procedure: XR ELBOW 1-2 VIEWS RIGHT Ordering Provider: OCNDE NICHOLAS Reason For Exam: right distal humerus [...] Electronically Signed Date/Time: 06/16/2023 3:38 PM EDT [facility] Radiology Study observation (narrative) [facility] XR Elbow - right 2 ViewsOrde red By: Sae Dudley on 06-16-2023 [facility] [employer] Work Phone: XR Elbow - right 3 [...] Electronically Signed Date/Time: 06/16/2023 3:24 PM EDT [facility] Patient Name: EZRA GONZALEZ : 1935 Exam Date/Time: 06/16/2023 14:30 Procedure: XR ELBOW 3+ VIEWS RIGHT Ordering Provider: TENORIO KASSIDY Reason For Exam: comminuted slightly displaced supracondylar fx of distal humerus with extension to the medial epicondyle - seen at [place] cannot see imaging Examination: Right elbow Clinical Indication: Pain Comparison: None [facility] Pastor Francisco MD - 06/16/2023 Patient Name: EZRA [facility]ONZALEZ [facility] 1935 [id number] Exam Date/Time: 06/16/2023 14:30 Procedure: XR ELBOW 3+ VIEWS RIGHT Ordering Provider: TENORIO KASSIDY Reason For Exam: comminuted slightly displaced supracondylar fx of distal humerus with extension to the medial epicondyle - seen at [place] cannot see imaging Examination: Right elbow Clinical [...] Electronically Signed Date/Time: 06/16/2023 3:24 PM EDT [facility] Radiology Study observation (narrative) [facility] XR Elbow - right 3 ViewsOrde red By: Pastor Francisco on 06-16-2023 [facility] Work Phone: XR Shoulder - right [...] Electronically Signed Date/Time: 06/16/2023 3:30 PM EDT [facility] Patient Name: EZRA GONZALEZ : [...] glenohumeral joint. Acromioclavicular joint appears grossly intact. [facility] Reji Lemus MD - 06/16/2023 Patient [...] Electronically Signed Date/Time: 06/16/2023 3:30 PM EDT [facility] Radiology Study observation (narrative) [facility] XR Shoulder - right 2 ViewsO rdered By: Reji Lemus on 06-16-2023 [facility] [employer] Work Phone: Capillary blood internationa l normalized ratio (INR)Ordered By: Alexandra Hagen on 05-30-2023 INR Coag (BldC) [Relative time] 1.7 [facility] Comment on above: Critical Value > 4.0 Whole blood prothrombin time Ordered By: Alexandra Hagen on 05-30-2023 PT Coag (Bld) [Time] 18.0 s 11.7-14.9 [facility] Absolute lymphocyte countOrd ered By: Alexandra Hagen on 05-12-2023 Lymphocytes Auto (Unsp spec) [#/Vol] 1.60 10*3/uL 0.83-4.51 [facility] Automated lymphocyte count a s percentage of total leukocytesOrdered By: Alexandra Hagen on 05-12-2023 Lymphocytes/100 WBC Auto (Unsp spec) 20.2 % 19-41 [facility] Basophil percentageOrdered B y: Alexandra Hagen on 05-12-2023 Basophils/100 WBC (Bld) 0.5 % 0-1 [facility] Chloride [Moles/Vol] 109 mmol/L 98-107 [facility] Eosinophils/100 WBC (Bld) 3.7 % 0-5 [facility] Glucose [Mass/Vol] 206 mg/dL 74-106 [facility] Comment on above: Glucose result great er than or equal to 200 mg/dLsuggests DIABETES MELLITUS per A.D.A. criteria. Hemoglobin (Bld) [Mass/Vol] 13.1 g/dL 12.0-15.0 [facility] Monocytes/100 WBC (Bld) 7.8 % 0-10 [facility] Neutrophils (Bld) [#/Vol] 5.3 10*3/uL 2.0-7.7 [facility] Neutrophils/100 WBC (Bld) 67.5 % 47-70 [facility] Potassium [Moles/Vol] 4.6 mmol/L 3.5-5.1 [facility] Comment on above: Moderate Hemolysis, Result may be falsely increased. Sodium [Moles/Vol] 140 mmol/L 136-145 [facility] WBC (Bld) [#/Vol] 7.9 10*3/uL 4.4-11.0 [facility] Determination of erythrocyte mean corpuscular volume (MCV)Ordered By: Alexandra Hagen on 05-12-2023 MCV (RBC) [Entitic vol] 93.1 fL 81-99 [facility] Erythrocyte distribution wid th ratioOrdered By: Alexandra Hagen on 05-12-2023 Erythrocyte distribution width (RBC) [Ratio] 13.5 % 11.6-14.6 [facility] Erythrocyte distribution wid th standard deviationOrdered By: Alexandra Hagen on 05-12-2023 Erythrocyte distribution width (RBC) [Entitic vol] 46.0 fL 35.1-43.9 [facility] Hematocrit Auto (Bld) [Volum e fraction]Ordered By: Alexandra Hagen on 05-12-2023 Hematocrit (Bld) [Volume fraction] 41.8 % 37-47 [facility] Immature granulocytes/100 WB C Auto (Bld)Ordered By: Alexandra Hagen on 05-12-2023 Immature granulocytes/100 WBC (Bld) 0.300 % 0.0-0.9 [facility] Comment on above: IG% - Immature Granu locytes (promyelocytes, myelocytes and metamyelocytes) > 1% indicates that a LEFT SHIFT is Present. Laboratory - Chemistry and C hemistry - challengeOrdered By: Alexandra Hagen on 05-12-2023 CO2 [Moles/Vol] 25.0 mmol/L 21.0-32.0 [facility] Urea nitrogen/Creatinine [Mass ratio] 13.7 mg/mg 10-20 [facility] Laboratory - Hematology and Cell countsOrdered By: Alexandra Hagen on 05-12-2023 MCH (RBC) [Entitic mass] 29.2 pg 27.0-32.0 [facility] MCHC (RBC) [Mass/Vol] 31.3 g/dL 32-36 [facility] Nucleated RBC/100 WBC (Bld) [Ratio] 0 % 0-5 [facility] Platelet mean volume (Bld) [Entitic vol] 10.6 fL 6.2-12.0 [facility] Platelets (Bld) [#/Vol] 272 10*3/uL 150-450 [facility] No Panel InformationOrdered By: Alexandra Hagen on 05-12-2023 Estimated GFR (MDRD) Amer 53 mL/min >60 [facility] Comment on above: GFR Calc Estimated GFR (MDRD) Non-Af Amer 43 mL/min >60 [facility] Comment on above: Non- GFR Calc RBC Auto (Bld) [#/Vol]Ordere d By: Alexandra Hagen on 05-12-2023 RBC (Bld) [#/Vol] 4.49 10*6/uL 4.2-5.4 [facility] Serum or plasma calcium viktoria urement (mass/volume)Ordered By: Alexandra Hagen on 05-12-2023 Calcium [Mass/Vol] 8.5 mg/dL 8.5-10.1 [facility] Serum or plasma creatinine m easurement (mass/volume)Ordered By: Alexandra Hagen on 05-12-2023 Creatinine [Mass/Vol] 1.24 mg/dL 0.55-1.02 [facility] Comment on above: The validity of the calculated GFR & GFRAA in patients over 70 years has not been determined. Clinical correlation is essential. Serum or plasma urea nitroge n measurement (mass/volume)Ordered By: Alexandra Hagen on 05-12-2023 Urea nitrogen [Mass/Vol] 17 mg/dL 7-18 [facility] Thin prep Papanicolaou smear with manual screeningOrdered By: Alexandra Hagen on 05-12-2023 Thin prep Papanicolaou smear with manual screening 6 5-15 [facility] Whole blood hemoglobin A1c/t otal hemoglobin ratio (mass fraction)Ordered By: Alexandra Hagen on 05-12-2023 HbA1c (Bld) [Mass fraction] 6.8 % 3.8-5.6 [facility] Comment on above: Normal < 5.7 % Predi abetic 5.7 - 6.4 % Diabetic >or= 6.5 % Please note range changes. Capillary blood internationa l normalized ratio (INR)Ordered By: Alexandra Hagen on 05-01-2023 INR Coag (BldC) [Relative time] 2.0 [facility] Comment on above: Critical Value > 4.0 Whole blood prothrombin time Ordered By: Alexandra Hagen on 05-01-2023 PT Coag (Bld) [Time] 21.0 s 11.7-14.9 [facility] International normalized rat io (INR) calculationOrdered By: Alexandra Xiao on 04-17-2023 INR Coag (PPP) [Relative time] 1.8 {INR} [facility] Laboratory - CoagulationOrde red By: Alexandra Hagen on 04-17-2023 PT Coag (PPP) [Time] 21.0 s 11.7-14.9 [facility] Laboratory - CoagulationOrde red By: Alexandra Hagen on 03-20-2023 INR Coag (Bld) [Relative time] 2.4 {INR} [facility] Comment on above: Critical Value > 4.0 Whole blood prothrombin time Ordered By: Alexandra Hagen on 03-20-2023 PT Coag (Bld) [Time] 25.7 s 11.7-14.9 [facility] Basophil percentageOrdered B y: Alexandra Hagen on 02-21-2023 Bilirubin [Mass/Vol] 0.60 mg/dL 0.20-1.00 [facility] Comment on above: For patients on eltr ombopag therapy, use of Dimension [place] TBIL is not recommended. Chloride [Moles/Vol] 107 mmol/L 98-107 [facility] Cholesterol [Mass/Vol] 127 mg/dL <200 [facility] Comment on above: <200 mg/dL Desirable 200-240 mg/dL Borderline >240 mg/dL High Risk Glucose [Mass/Vol] 134 mg/dL 74-106 [facility] Comment on above: Fasting Glucose resu lt greater than or equal to 126 mg/dL suggests DIABETES MELLITUS per A.D.A. criteria. Potassium [Moles/Vol] 4.2 mmol/L 3.5-5.1 [facility] Protein [Mass/Vol] 6.2 g/dL 6.4-8.2 [facility] Sodium [Moles/Vol] 138 mmol/L 136-145 [facility] Triglyceride [Mass/Vol] 102 mg/dL <199 [facility] Comment on above: The drugs N-Acetylcy steine and Metamizole may falsely depress this assay.Serum Triglycerides Reference Interval Normal <150 mg/dL Borderline high 150 - 199 mg/dL High 200 - 499 mg/dL Very High > or = 500 mg/dL WBC (Bld) [#/Vol] 7.7 10*3/uL 4.4-11.0 [facility] Blood erythrocytes count (nu mber/volume)Ordered By: Alexandra Hagen on 02-21-2023 RBC (Bld) [#/Vol] 4.19 10*6/uL 4.2-5.4 [facility] Blood hemoglobin measurement (mass/volume)Ordered By: Alexandra Hagen on 02-21-2023 Hemoglobin (Bld) [Mass/Vol] 12.5 g/dL 12.0-15.0 [facility] Blood platelet mean volumeOr dered By: Alexandra Hagen on 02-21-2023 Platelet mean volume (Bld) [Entitic vol] 10.8 fL 6.2-12.0 [facility] Determination of erythrocyte mean corpuscular volume (MCV)Ordered By: Alexandra Hagen on 02-21-2023 MCV (RBC) [Entitic vol] 91.2 fL 81-99 [facility] Hematocrit Auto (Bld) [Volum e fraction]Ordered By: Alexandra Hagen on 02-21-2023 Hematocrit (Bld) [Volume fraction] 38.2 % 37-47 [facility] INR in Blood by Coagulation assayOrdered By: Alexandra Hagen on 02-21-2023 INR Coag (Bld) [Relative time] 2.3 {INR} [facility] Laboratory - Chemistry and C hemistry - challengeOrdered By: Alexandra Hagen on 02-21-2023 ALP [Catalytic activity/Vol] 84 U/L 45-117 [facility] ALT [Catalytic activity/Vol] 11 U/L 13-56 [facility] CO2 [Moles/Vol] 27.0 mmol/L 21.0-32.0 [facility] Globulin (S) [Mass/Vol] 3.3 g/dL 2.2-4.2 [facility] Urea nitrogen/Creatinine [Mass ratio] 14.0 mg/mg 10-20 [facility] Laboratory - CoagulationOrde red By: Alexandra Hagen on 02-21-2023 PT Coag (PPP) [Time] 25.3 s 11.7-14.9 [facility] Laboratory - Hematology and Cell countsOrdered By: Alexandra Hagen on 02-21-2023 Erythrocyte distribution width (RBC) [Entitic vol] 44.8 fL 35.1-43.9 [facility] Erythrocyte distribution width (RBC) [Ratio] 13.4 % 11.6-14.6 [facility] MCH (RBC) [Entitic mass] 29.8 pg 27.0-32.0 [facility] MCHC Auto (RBC) [Mass/Vol]Or dered By: Alexandra Hagen on 02-21-2023 MCHC (RBC) [Mass/Vol] 32.7 g/dL 32-36 [facility] No Panel InformationOrdered By: Alexandra Hagen on 02-21-2023 Estimated GFR (MDRD) Amer 68 mL/min >60 [facility] Comment on above: GFR Calc Estimated GFR (MDRD) Non-Af Amer 56 mL/min >60 [facility] Comment on above: Non- GFR Calc Platelets bldOrdered By: Alexandra Hagen on 02-21-2023 Platelets (Bld) [#/Vol] 297 10*3/uL 150-450 [facility] Serum or plasma albumin viktoria urement (mass/volume)Ordered By: Alexandra Hagen on 02-21-2023 Albumin [Mass/Vol] 2.9 g/dL 3.2-5.0 [facility] Serum or plasma albumin/glob ulin mass ratioOrdered By: Alexandra Hagen on 02-21-2023 Albumin/Globulin [Mass ratio] 0.9 {ratio} 0.9-2.4 [facility] Serum or plasma calcium viktoria urement (mass/volume)Ordered By: Alexandra Hagen on 02-21-2023 Calcium [Mass/Vol] 8.4 mg/dL 8.5-10.1 [facility] Serum or plasma cholesterol in HDL measurement (mass/volume)Ordered By: Alexandra Hagen on 02-21-2023 Cholesterol in HDL [Mass/Vol] 50 mg/dL >40 [facility] Comment on above: The drugs N-Acetylcy steine and Metamizole may falsely depress this assay. Reference Range HDL <40 mg/dL Low HDL Cholesterol HDL >or= 60 mg/dL High HDL Cholesterol Serum or plasma cholesterol in VLDL measurement (mass/volume)Ordered By: Alexandra Hagen on 02-21-2023 Cholesterol in VLDL [Mass/Vol] 20 mg/dL 5-40 [facility] Serum or plasma creatinine m easurement (mass/volume)Ordered By: Alexandra Hagen on 02-21-2023 Creatinine [Mass/Vol] 1.00 mg/dL 0.55-1.02 [facility] Comment on above: The validity of the calculated GFR & GFRAA in patients over 70 years has not been determined. Clinical correlation is essential. Serum or plasma low density lipoprotein (LDL) cholesterol measurement (mass/volume)Ordered By: Alexandra Hagen on 02-21-2023 Cholesterol in LDL [Mass/Vol] 57 mg/dL 0-130 [facility] Serum or plasma urea nitroge n measurement (mass/volume)Ordered By: Alexandra Hagen on 02-21-2023 Urea nitrogen [Mass/Vol] 14 mg/dL 7-18 [facility] Thin prep Papanicolaou smear with manual screeningOrdered By: Alexandra Hagen on 02-21-2023 Thin prep Papanicolaou smear with manual screening 16 U/L 15-37 [facility] Thin prep Papanicolaou smear with manual screening 4 5-15 [facility] Albumin Elph [Mass/Vol]Order ed By: Anant Juarez on 01-20-2023 Albumin [Mass/Vol] 3.4 g/dL 2.9-4.4 [facility] Basophil percentageOrdered B y: Anant Juarez on 01-20-2023 Basophil percentage Comment . [facility] Comment on above: No monoclonality det ected.Performed at: - Lab[address] [id number] Director: Master Vee PhD, Phone: [phone] Interpretation of serum or p lasma protein pattern by immunofixation (narrative resultOrdered By: Anant Juarez on 01-20-2023 Protein Fractions Immunofixation Manuel [Interp] See comment [facility] Comment on above: Result: Not Observed No Panel InformationOrdered By: Anant Juarez on 01-20-2023 Addendum Document Comment . [facility] Comment on above: Protein electrophore sis scan will follow via computer,mail, or live in housekeeper delivery. Serum [id number] measu rement by electrophoresisOrdered By: Anant Juarez on 01-20-2023 Alpha 1 globulin Elph [Mass/Vol] 0.3 g/dL 0.0-0.4 [facility] Alpha 1 globulin Elph [Mass/Vol] 0.9 g/dL 0.4-1.0 [facility] Serum globulin measurement ( mass/volume)Ordered By: Anant Juarez on 01-20-2023 Globulin (S) [Mass/Vol] 3.0 g/dL 2.2-3.9 [facility] Serum or plasma IgA measurem ent (mass/volume)Ordered By: Anant Juarez on 01-20-2023 IgA [Mass/Vol] 158 mg/dL 64-422 [facility] Serum or plasma IgG measurem ent (mass/volume)Ordered By: Anant Juarez on 01-20-2023 IgG [Mass/Vol] 847 mg/dL [id number] [facility] Serum or plasma IgM measurem ent (mass/volume)Ordered By: Anant Juarez on 01-20-2023 IgM [Mass/Vol] 48 mg/dL 26-217 [facility] Serum or plasma beta globuli n measurement by electrophoresis (mass/volume)Ordered By: Anant Juarez 01-20-2023 Beta globulin Elph [Mass/Vol] 1.0 g/dL 0.7-1.3 [facility] Serum or plasma gamma globul in measurement by electrophoresis (mass/volume)Ordered By: Anant Juarez on 01-20-2023 Gamma globulin Elph [Mass/Vol] 0.7 g/dL 0.4-1.8 [facility] Serum or plasma immunoelectr ophoresis interpretation (nominal result)Ordered By: Anant Juarez on 01-20-2023 Interpretation IEP [Interp] Comment . [facility] Comment on above: No monoclonality det ected. Thin prep Papanicolaou smear with manual screeningOrdered By: Anant Juarez on 01-20-2023 Thin prep Papanicolaou smear with manual screening 1.2 0.7-1.7 [facility] Total protein bloodOrdered B y: Anant Juarez on 01-20-2023 Protein [Mass/Vol] 6.4 g/dL 6.0-8.5 [facility] Laboratory - CoagulationOrde red By: Alexandra Hagen on 01-16-2023 INR Coag (Bld) [Relative time] 2.2 {INR} [facility] Comment on above: Critical Value > 4.0 Whole blood prothrombin time Ordered By: Alexandra Hagen on 01-16-2023 PT Coag (Bld) [Time] 24.2 s 11.7-14.9 [facility] Absolute lymphocyte countOrd ered By: Lynn Horn on 12-28-2022 Lymphocytes Auto (Unsp spec) [#/Vol] 1.57 10*3/uL 0.83-4.51 [facility] Basophil percentageOrdered B y: Lynn Horn on 12-28-2022 Basophils/100 WBC (Bld) 0.6 % 0-1 [facility] Chloride [Moles/Vol] 108 mmol/L 98-107 [facility] Eosinophils/100 WBC (Bld) 3.0 % 0-5 [facility] Glucose [Mass/Vol] 117 mg/dL 74-106 [facility] Comment on above: Fasting Glucose resu lt from 100 to 125 mg/dL suggests IMPAIRED HOMEOSTASIS per A.D.A. criteria. Neutrophils (Bld) [#/Vol] 5.3 10*3/uL 2.0-7.7 [facility] Neutrophils/100 WBC (Bld) 66.8 % 47-70 [facility] Potassium [Moles/Vol] 3.9 mmol/L 3.5-5.1 [facility] Sodium [Moles/Vol] 138 mmol/L 136-145 [facility] WBC (Bld) [#/Vol] 7.9 10*3/uL 4.4-11.0 [facility] Blood erythrocytes count (nu mber/volume)Ordered By: Lynn Horn on 12-28-2022 RBC (Bld) [#/Vol] 4.32 10*6/uL 4.2-5.4 [facility] Blood hemoglobin measurement (mass/volume)Ordered By: Lynn Horn on 12-28-2022 Hemoglobin (Bld) [Mass/Vol] 12.8 g/dL 12.0-15.0 [facility] Blood lymphocytes/100 leukoc ytesOrdered By: Lynn Horn on 12-28-2022 Lymphocytes/100 WBC (Bld) 19.8 % 19-41 [facility] Blood monocytes/100 leukocyt esOrdered By: Lynn Horn on 12-28-2022 Monocytes/100 WBC (Bld) 9.5 % 0-10 [facility] Blood platelet mean volumeOr dered By: Lynn Horn on 12-28-2022 Platelet mean volume (Bld) [Entitic vol] 10.6 fL 6.2-12.0 [facility] Determination of erythrocyte mean corpuscular volume (MCV)Ordered By: Lynn Horn on 12-28-2022 MCV (RBC) [Entitic vol] 91.0 fL 81-99 [facility] Hematocrit Auto (Bld) [Volum e fraction]Ordered By: Lynn Horn on 12-28-2022 Hematocrit (Bld) [Volume fraction] 39.3 % 37-47 [facility] INR in Blood by Coagulation assayOrdered By: Lynn Horn on 12-28-2022 INR Coag (Bld) [Relative time] 2.1 {INR} [facility] Laboratory - Chemistry and C hemistry - challengeOrdered By: Lynn Horn on 12-28-2022 CO2 [Moles/Vol] 27.0 mmol/L 21.0-32.0 [facility] Urea nitrogen/Creatinine [Mass ratio] 15.7 mg/mg 10-20 [facility] Laboratory - CoagulationOrde red By: Lynn Horn on 12-28-2022 PT Coag (PPP) [Time] 23.8 s 11.7-14.9 [facility] Laboratory - Hematology and Cell countsOrdered By: Lynn Horn on 12-28-2022 Erythrocyte distribution width (RBC) [Entitic vol] 43.0 fL 35.1-43.9 [facility] Erythrocyte distribution width (RBC) [Ratio] 12.9 % 11.6-14.6 [facility] Immature granulocytes/100 WBC (Bld) 0.300 % 0.0-0.9 [facility] Comment on above: IG% - Immature Granu locytes (promyelocytes, myelocytes and metamyelocytes) > 1% indicates that a LEFT SHIFT is Present. MCH (RBC) [Entitic mass] 29.6 pg 27.0-32.0 [facility] Nucleated RBC/100 WBC (Bld) [Ratio] 0 % 0-5 [facility] MCHC Auto (RBC) [Mass/Vol]Or dered By: Lynn Horn on 12-28-2022 MCHC (RBC) [Mass/Vol] 32.6 g/dL 32-36 [facility] No Panel InformationOrdered By: Lynn Horn on 12-28-2022 Estimated Creatinine Clearance Calc 36.84 ml/min [facility] Estimated GFR (MDRD) Amer 77 mL/min >60 [facility] Comment on above: GFR Calc Estimated GFR (MDRD) Non-Af Amer 64 mL/min >60 [facility] Comment on above: Non- GFR Calc Platelets bldOrdered By: Lois Horn on 12-28-2022 Platelets (Bld) [#/Vol] 272 10*3/uL 150-450 [facility] Serum or plasma calcium viktoria urement (mass/volume)Ordered By: Lynn Horn on 12-28-2022 Calcium [Mass/Vol] 8.3 mg/dL 8.5-10.1 [facility] Serum or plasma creatinine m easurement (mass/volume)Ordered By: Lynn Horn on 12-28-2022 Creatinine [Mass/Vol] 0.89 mg/dL 0.55-1.02 [facility] Comment on above: The validity of the calculated GFR & GFRAA in patients over 70 years has not been determined. Clinical correlation is essential. Serum or plasma urea nitroge n measurement (mass/volume)Ordered By: Lynn Horn on 12-28-2022 Urea nitrogen [Mass/Vol] 14 mg/dL 7-18 [facility] Thin prep Papanicolaou smear with manual screeningOrdered By: Lynn Horn on 12-28-2022 Thin prep Papanicolaou smear with manual screening 3 5-15 [facility] Laboratory - CoagulationOrde red By: Lali Pimentel on 12-27-2022 aPTT Coag (Bld) [Time] 48.2 s 24.1-36.2 [facility] No Panel InformationOrdered By: Lali Pimentel on 12-27-2022 Troponin I High Sensitivity 10 pg/mL 3.0-54.0 [facility] Comment on above: Please Note: New Evon t Units and Gender Specific Reference Ranges. For more information see Policy Stat Procedure [place] High Sensitivity Troponin (TNIH) and attachments. Laboratory - CoagulationOrde red By: Alexandra Hagen on 12-19-2022 INR Coag (Bld) [Relative time] 2.8 {INR} [facility] Comment on above: Critical Value > 4.0 Whole blood prothrombin time Ordered By: Alexandra Hagen on 12-19-2022 PT Coag (Bld) [Time] 29.7 s 11.7-14.9 [facility] Absolute lymphocyte countOrd ered By: Alexandra Hagen on 12-09-2022 Lymphocytes Auto (Unsp spec) [#/Vol] 1.65 10*3/uL 0.83-4.51 [facility] Basophil percentageOrdered B y: Alexandra Hagen on 12-09-2022 Basophils/100 WBC (Bld) 0.4 % 0-1 [facility] Chloride [Moles/Vol] 107 mmol/L 98-107 [facility] Eosinophils/100 WBC (Bld) 3.6 % 0-5 [facility] Glucose [Mass/Vol] 125 mg/dL 74-106 [facility] Comment on above: Fasting Glucose resu lt from 100 to 125 mg/dL suggests IMPAIRED HOMEOSTASIS per A.D.A. criteria. Neutrophils (Bld) [#/Vol] 4.3 10*3/uL 2.0-7.7 [facility] Neutrophils/100 WBC (Bld) 61.6 % 47-70 [facility] Potassium [Moles/Vol] 4.8 mmol/L 3.5-5.1 [facility] Sodium [Moles/Vol] 138 mmol/L 136-145 [facility] WBC (Bld) [#/Vol] 7.0 10*3/uL 4.4-11.0 [facility] Blood erythrocytes count (nu mber/volume)Ordered By: Alexandra Hagen on 12-09-2022 RBC (Bld) [#/Vol] 4.30 10*6/uL 4.2-5.4 [facility] Blood hemoglobin measurement (mass/volume)Ordered By: Alexandra Hagen on 12-09-2022 Hemoglobin (Bld) [Mass/Vol] 13.1 g/dL 12.0-15.0 [facility] Blood lymphocytes/100 leukoc ytesOrdered By: Alexandra Hagen on 12-09-2022 Lymphocytes/100 WBC (Bld) 23.7 % 19-41 [facility] Blood monocytes/100 leukocyt esOrdered By: Alexandra Hagen on 12-09-2022 Monocytes/100 WBC (Bld) 10.4 % 0-10 [facility] Blood platelet mean volumeOr dered By: Alexandra Hagen on 12-09-2022 Platelet mean volume (Bld) [Entitic vol] 10.7 fL 6.2-12.0 [facility] Determination of erythrocyte mean corpuscular volume (MCV)Ordered By: Alexandra Hagen on 12-09-2022 MCV (RBC) [Entitic vol] 92.3 fL 81-99 [facility] Hematocrit Auto (Bld) [Volum e fraction]Ordered By: Alexandra Hagen on 12-09-2022 Hematocrit (Bld) [Volume fraction] 39.7 % 37-47 [facility] Laboratory - Chemistry and C hemistry - challengeOrdered By: Alexandra Hagen on 12-09-2022 CO2 [Moles/Vol] 26.0 mmol/L 21.0-32.0 [facility] Urea nitrogen/Creatinine [Mass ratio] 14.4 mg/mg 10-20 [facility] Laboratory - Hematology and Cell countsOrdered By: Alexandra Hagen on 12-09-2022 Erythrocyte distribution width (RBC) [Entitic vol] 44.0 fL 35.1-43.9 [facility] Erythrocyte distribution width (RBC) [Ratio] 13.1 % 11.6-14.6 [facility] Immature granulocytes/100 WBC (Bld) 0.300 % 0.0-0.9 [facility] Comment on above: IG% - Immature Granu locytes (promyelocytes, myelocytes and metamyelocytes) > 1% indicates that a LEFT SHIFT is Present. MCH (RBC) [Entitic mass] 30.5 pg 27.0-32.0 [facility] Nucleated RBC/100 WBC (Bld) [Ratio] 0 % 0-5 [facility] MCHC Auto (RBC) [Mass/Vol]Or dered By: Alexandra Hagen on 12-09-2022 MCHC (RBC) [Mass/Vol] 33.0 g/dL 32-36 [facility] No Panel InformationOrdered By: Alexandra Hagen on 12-09-2022 Estimated GFR (MDRD) Amer 60 mL/min >60 [facility] Comment on above: GFR Calc Estimated GFR (MDRD) Non-Af Amer 49 mL/min >60 [facility] Comment on above: Non- GFR Calc Platelets bldOrdered By: Alexandra Hagen on 12-09-2022 Platelets (Bld) [#/Vol] 293 10*3/uL 150-450 [facility] Serum or plasma calcium viktoria urement (mass/volume)Ordered By: Alexandra Hagen on 12-09-2022 Calcium [Mass/Vol] 8.7 mg/dL 8.5-10.1 [facility] Serum or plasma creatinine m easurement (mass/volume)Ordered By: Alexandra Hagen on 12-09-2022 Creatinine [Mass/Vol] 1.11 mg/dL 0.55-1.02 [facility] Comment on above: The validity of the calculated GFR & GFRAA in patients over 70 years has not been determined. Clinical correlation is essential. Serum or plasma urea nitroge n measurement (mass/volume)Ordered By: Alexandra Hagen on 12-09-2022 Urea nitrogen [Mass/Vol] 16 mg/dL 7-18 [facility] Thin prep Papanicolaou smear with manual screeningOrdered By: Alexandra Hagen on 12-09-2022 Thin prep Papanicolaou smear with manual screening 5 5-15 [facility] Whole blood hemoglobin A1c/t otal hemoglobin ratio (mass fraction)Ordered By: Alexandra Hagen on 12-09-2022 HbA1c (Bld) [Mass fraction] 6.7 % 3.8-5.6 [facility] Comment on above: Normal < 5.7 % Predi abetic 5.7 - 6.4 % Diabetic >or= 6.5 % Please note range changes. Basophil percentageOrdered B y: Alexandra Hagen on 11-20-2022 Bilirubin [Mass/Vol] 0.50 mg/dL 0.20-1.00 [facility] Comment on above: For patients on eltr ombopag therapy, use of Dimension [place] TBIL is not recommended. Chloride [Moles/Vol] 105 mmol/L 98-107 [facility] Cholesterol [Mass/Vol] 167 mg/dL <200 [facility] Comment on above: <200 mg/dL Desirable 200-240 mg/dL Borderline >240 mg/dL High Risk Glucose [Mass/Vol] 153 mg/dL 74-106 [facility] Comment on above: Fasting Glucose resu lt greater than or equal to 126 mg/dL suggests DIABETES MELLITUS per A.D.A. criteria. Potassium [Moles/Vol] 4.2 mmol/L 3.5-5.1 [facility] Protein [Mass/Vol] 6.7 g/dL 6.4-8.2 [facility] Sodium [Moles/Vol] 138 mmol/L 136-145 [facility] Triglyceride [Mass/Vol] 120 mg/dL <199 [facility] Comment on above: The drugs N-Acetylcy steine and Metamizole may falsely depress this assay.Serum Triglycerides Reference Interval Normal <150 mg/dL Borderline high 150 - 199 mg/dL High 200 - 499 mg/dL Very High > or = 500 mg/dL WBC (Bld) [#/Vol] 7.4 10*3/uL 4.4-11.0 [facility] Blood erythrocytes count (nu mber/volume)Ordered By: Alexandra Hagen on 11-20-2022 RBC (Bld) [#/Vol] 4.37 10*6/uL 4.2-5.4 [facility] Blood hemoglobin measurement (mass/volume)Ordered By: Alexandra Hagen on 11-20-2022 Hemoglobin (Bld) [Mass/Vol] 13.1 g/dL 12.0-15.0 [facility] Blood platelet mean volumeOr dered By: Alexandra Hagen on 11-20-2022 Platelet mean volume (Bld) [Entitic vol] 10.8 fL 6.2-12.0 [facility] Determination of erythrocyte mean corpuscular volume (MCV)Ordered By: Alexandra Hagen on 11-20-2022 MCV (RBC) [Entitic vol] 91.5 fL 81-99 [facility] Hematocrit Auto (Bld) [Volum e fraction]Ordered By: Alexandra Hagen on 11-20-2022 Hematocrit (Bld) [Volume fraction] 40.0 % 37-47 [facility] INR in Blood by Coagulation assayOrdered By: Alexandra Hagen on 11-20-2022 INR Coag (Bld) [Relative time] 2.0 {INR} [facility] Laboratory - Chemistry and C hemistry - challengeOrdered By: Alexandra Hagen on 11-20-2022 ALP [Catalytic activity/Vol] 72 U/L 45-117 [facility] ALT [Catalytic activity/Vol] 13 U/L 13-56 [facility] CO2 [Moles/Vol] 30.0 mmol/L 21.0-32.0 [facility] Globulin (S) [Mass/Vol] 3.6 g/dL 2.2-4.2 [facility] Urea nitrogen/Creatinine [Mass ratio] 12.8 mg/mg 10-20 [facility] Laboratory - CoagulationOrde red By: Alexandra Hagen on 11-20-2022 PT Coag (PPP) [Time] 22.6 s 11.7-14.9 [facility] Laboratory - Hematology and Cell countsOrdered By: Alexandra Hagen on 11-20-2022 Erythrocyte distribution width (RBC) [Entitic vol] 43.4 fL 35.1-43.9 [facility] Erythrocyte distribution width (RBC) [Ratio] 12.9 % 11.6-14.6 [facility] MCH (RBC) [Entitic mass] 30.0 pg 27.0-32.0 [facility] MCHC Auto (RBC) [Mass/Vol]Or dered By: Alexandra Hagen on 11-20-2022 MCHC (RBC) [Mass/Vol] 32.8 g/dL 32-36 [facility] No Panel InformationOrdered By: Alexandra Hagen on 11-20-2022 Estimated GFR (MDRD) Amer 61 mL/min >60 [facility] Comment on above: GFR Calc Estimated GFR (MDRD) Non-Af Amer 50 mL/min >60 [facility] Comment on above: Non- GFR Calc Platelets bldOrdered By: Alexandra Hagen on 11-20-2022 Platelets (Bld) [#/Vol] 310 10*3/uL 150-450 [facility] Serum or plasma albumin viktoria urement (mass/volume)Ordered By: Alexandra Hagen on 11-20-2022 Albumin [Mass/Vol] 3.1 g/dL 3.2-5.0 [facility] Serum or plasma albumin/glob ulin mass ratioOrdered By: Alexandra Hagen on 11-20-2022 Albumin/Globulin [Mass ratio] 0.9 {ratio} 0.9-2.4 [facility] Serum or plasma calcium viktoria urement (mass/volume)Ordered By: Alexandra Hagen on 11-20-2022 Calcium [Mass/Vol] 8.6 mg/dL 8.5-10.1 [facility] Serum or plasma cholesterol in HDL measurement (mass/volume)Ordered By: Alexandra Hagen on 11-20-2022 Cholesterol in HDL [Mass/Vol] 55 mg/dL >40 [facility] Comment on above: The drugs N-Acetylcy steine and Metamizole may falsely depress this assay. Reference Range HDL <40 mg/dL Low HDL Cholesterol HDL >or= 60 mg/dL High HDL Cholesterol Serum or plasma cholesterol in VLDL measurement (mass/volume)Ordered By: Alexandra Hagen on 11-20-2022 Cholesterol in VLDL [Mass/Vol] 24 mg/dL 5-40 [facility] Serum or plasma creatinine m easurement (mass/volume)Ordered By: Alexandra Hagen on 11-20-2022 Creatinine [Mass/Vol] 1.09 mg/dL 0.55-1.02 [facility] Comment on above: The validity of the calculated GFR & GFRAA in patients over 70 years has not been determined. Clinical correlation is essential. Serum or plasma low density lipoprotein (LDL) cholesterol measurement (mass/volume)Ordered By: Alexandra Hagen on 11-20-2022 Cholesterol in LDL [Mass/Vol] 88 mg/dL 0-130 [facility] Serum or plasma urea nitroge n measurement (mass/volume)Ordered By: Alexandra Hagen on 11-20-2022 Urea nitrogen [Mass/Vol] 14 mg/dL 7-18 [facility] Thin prep Papanicolaou smear with manual screeningOrdered By: Alexandra Hagen on 11-20-2022 Thin prep Papanicolaou smear with manual screening 15 U/L 15-37 [facility] Thin prep Papanicolaou smear with manual screening 3 5-15 [facility] Absolute lymphocyte countOrd ered By: Mo Corea on 11-18-2022 Lymphocytes Auto (Unsp spec) [#/Vol] 1.95 10*3/uL 0.83-4.51 [facility] Basophil percentageOrdered B y: Mo Corea on 11-18-2022 Basophil percentage 0-5 SEEN /hpf 0-5 [facility] Basophils/100 WBC (Bld) 0.4 % 0-1 [facility] Bilirubin [Mass/Vol] 0.40 mg/dL 0.20-1.00 [facility] Comment on above: For patients on eltr ombopag therapy, use of Dimension [place] TBIL is not recommended. Chloride [Moles/Vol] 108 mmol/L 98-107 [facility] Eosinophils/100 WBC (Bld) 3.4 % 0-5 [facility] Glucose [Mass/Vol] 126 mg/dL 74-106 [facility] Comment on above: Fasting Glucose resu lt greater than or equal to 126 mg/dL suggests DIABETES MELLITUS per A.D.A. criteria. Neutrophils (Bld) [#/Vol] 4.4 10*3/uL 2.0-7.7 [facility] Neutrophils/100 WBC (Bld) 59.9 % 47-70 [facility] Potassium [Moles/Vol] 3.9 mmol/L 3.5-5.1 [facility] Protein [Mass/Vol] 6.9 g/dL 6.4-8.2 [facility] Sodium [Moles/Vol] 140 mmol/L 136-145 [facility] WBC (Bld) [#/Vol] 7.3 10*3/uL 4.4-11.0 [facility] Bilirubin Test strip Ql (U)O rdered By: Mo Corea on 11-18-2022 Bilirubin Ql (U) Negative Negative [facility] Blood erythrocytes count (nu mber/volume)Ordered By: Mo Corea on 11-18-2022 RBC (Bld) [#/Vol] 4.63 10*6/uL 4.2-5.4 [facility] Blood hemoglobin measurement (mass/volume)Ordered By: Mo Corea on 11-18-2022 Hemoglobin (Bld) [Mass/Vol] 13.9 g/dL 12.0-15.0 [facility] Blood lymphocytes/100 leukoc ytesOrdered By: Mo Corea on 11-18-2022 Lymphocytes/100 WBC (Bld) 26.8 % 19-41 [facility] Blood monocytes/100 leukocyt esOrdered By: Mo Corea on 11-18-2022 Monocytes/100 WBC (Bld) 9.2 % 0-10 [facility] Blood platelet mean volumeOr dered By: Mo Corea on 11-18-2022 Platelet mean volume (Bld) [Entitic vol] 10.5 fL 6.2-12.0 [facility] Determination of erythrocyte mean corpuscular volume (MCV)Ordered By: Mo Corea on 11-18-2022 MCV (RBC) [Entitic vol] 92.4 fL 81-99 [facility] Hematocrit Auto (Bld) [Volum e fraction]Ordered By: Mo Corea on 11-18-2022 Hematocrit (Bld) [Volume fraction] 42.8 % 37-47 [facility] INR in Blood by Coagulation assayOrdered By: Mo Corea on 11-18-2022 INR Coag (Bld) [Relative time] 2.0 {INR} [facility] Ketones Test strip Ql (U)Ord ered By: Mo Corea on 11-18-2022 Ketones Ql (U) Negative Negative [facility] Laboratory - Chemistry and C hemistry - challengeOrdered By: Mo Corea on 11-18-2022 ALP [Catalytic activity/Vol] 76 U/L 45-117 [facility] ALT [Catalytic activity/Vol] 13 U/L 13-56 [facility] CO2 [Moles/Vol] 30.0 mmol/L 21.0-32.0 [facility] Globulin (S) [Mass/Vol] 3.6 g/dL 2.2-4.2 [facility] Urea nitrogen/Creatinine [Mass ratio] 13.6 mg/mg 10-20 [facility] Laboratory - CoagulationOrde red By: Mo Corea on 11-18-2022 aPTT Coag (Bld) [Time] 48.1 s 24.1-36.2 [facility] PT Coag (PPP) [Time] 22.7 s 11.7-14.9 [facility] Laboratory - Hematology and Cell countsOrdered By: Mo Corea on 11-18-2022 Erythrocyte distribution width (RBC) [Entitic vol] 44.2 fL 35.1-43.9 [facility] Erythrocyte distribution width (RBC) [Ratio] 13.1 % 11.6-14.6 [facility] Immature granulocytes/100 WBC (Bld) 0.300 % 0.0-0.9 [facility] Comment on above: IG% - Immature Granu locytes (promyelocytes, myelocytes and metamyelocytes) > 1% indicates that a LEFT SHIFT is Present. MCH (RBC) [Entitic mass] 30.0 pg 27.0-32.0 [facility] Nucleated RBC/100 WBC (Bld) [Ratio] 0 % 0-5 [facility] MCHC Auto (RBC) [Mass/Vol]Or dered By: Mo Corea on 11-18-2022 MCHC (RBC) [Mass/Vol] 32.5 g/dL 32-36 [facility] Mucus LM Ql (Urine sed)Order ed By: Mo Corea on 11-18-2022 Mucus Ql (Urine sed) 0 SEEN /hpf [facility] Nitrite Test strip Ql (U)Ord ered By: Mo Corea on 11-18-2022 Nitrite Ql (U) Negative Negative [facility] No Panel InformationOrdered By: Mo Croea on 11-18-2022 Estimated Creatinine Clearance Calc 31.83 ml/min [facility] Estimated GFR (MDRD) Amer 65 mL/min >60 [facility] Comment on above: GFR Calc Estimated GFR (MDRD) Non-Af Amer 54 mL/min >60 [facility] Comment on above: Non- GFR Calc Platelets bldOrdered By: Rebecca Corea on 11-18-2022 Platelets (Bld) [#/Vol] 289 10*3/uL 150-450 [facility] Protein Test strip Ql (U)Ord ered By: Mo Corea on 11-18-2022 Protein Ql (U) 15 mg/dl Negative [facility] Serum or plasma albumin viktoria urement (mass/volume)Ordered By: Mo Corea on 11-18-2022 Albumin [Mass/Vol] 3.3 g/dL 3.2-5.0 [facility] Serum or plasma albumin/glob ulin mass ratioOrdered By: Mo Coera on 11-18-2022 Albumin/Globulin [Mass ratio] 0.9 {ratio} 0.9-2.4 [facility] Serum or plasma calcium viktoria urement (mass/volume)Ordered By: Mo Corea on 11-18-2022 Calcium [Mass/Vol] 8.7 mg/dL 8.5-10.1 [facility] Serum or plasma creatinine m easurement (mass/volume)Ordered By: Mo Corea on 11-18-2022 Creatinine [Mass/Vol] 1.03 mg/dL 0.55-1.02 [facility] Comment on above: The validity of the calculated GFR & GFRAA in patients over 70 years has not been determined. Clinical correlation is essential. Serum or plasma urea nitroge n measurement (mass/volume)Ordered By: Mo Corea on 11-18-2022 Urea nitrogen [Mass/Vol] 14 mg/dL 7-18 [facility] Squamous epithelial cells de tection in urine sediment by light microscopyOrdered By: Mo Corea on 11-18-2022 Epithelial cells.squamous LM Ql (Urine sed) 0-5 SEEN /hpf 5-10 [facility] Thin prep Papanicolaou smear with manual screeningOrdered By: Mo Corea on 11-18-2022 Thin prep Papanicolaou smear with manual screening 15 U/L 15-37 [facility] Thin prep Papanicolaou smear with manual screening 2 5-15 [facility] Urine blood detectionOrdered By: Mo Corea on 11-18-2022 RBC Ql (U) Negative Negative [facility] RBC Ql (U) 0 SEEN /hpf 0-5 [facility] Urine clarityOrdered By: Rebecca Corea on 11-18-2022 Clarity (U) Sl. Cloudy Clear [facility] Urine color determinationOrd ered By: Mo Corea on 11-18-2022 Color (U) Yellow Yellow [facility] Urine glucose detectionOrder ed By: Mo Corea on 11-18-2022 Glucose Ql (U) Normal mg/dl Normal [facility] Urine leukocyte esterase det ection by dipstickOrdered By: Mo Corea on 11-18-2022 Leukocyte esterase Test strip Ql (U) 25 /ul Negative [facility] Urine pHOrdered By: Mo amado on 11-18-2022 pH (U) 7.0 [pH] 5.0 - 8.0 [facility] Urine sediment bacteria coun t by microscopy (number/high power field)Ordered By: Mo Corea on 11-18-2022 Bacteria LM.HPF (Urine sed) [#/Area] 0 /[HPF] None Seen [facility] Urine specific gravity measu rementOrdered By: Mo Corea on 11-18-2022 Specific gravity (U) [Rel density] 1.010 1.002-1.030 [facility] Urobilinogen Auto test strip Ql (U)Ordered By: Mo Corea on 11-18-2022 Urobilinogen Ql (U) Normal mg/dl Normal [facility] Absolute lymphocyte countOrd ered By: Sae Carballo on 11-15-2022 Lymphocytes Auto (Unsp spec) [#/Vol] 2.03 10*3/uL 0.83-4.51 [facility] Basophil percentageOrdered B y: Sae Carballo on 11-15-2022 Basophils/100 WBC (Bld) 0.5 % 0-1 [facility] Chloride [Moles/Vol] 107 mmol/L 98-107 [facility] Cholesterol [Mass/Vol] 164 mg/dL <200 [facility] Comment on above: <200 mg/dL Desirable 200-240 mg/dL Borderline >240 mg/dL High Risk Eosinophils/100 WBC (Bld) 3.5 % 0-5 [facility] Glucose [Mass/Vol] 124 mg/dL 74-106 [facility] Comment on above: Fasting Glucose resu lt from 100 to 125 mg/dL suggests IMPAIRED HOMEOSTASIS per A.D.A. criteria. Neutrophils (Bld) [#/Vol] 4.7 10*3/uL 2.0-7.7 [facility] Neutrophils/100 WBC (Bld) 60.3 % 47-70 [facility] Potassium [Moles/Vol] 4.1 mmol/L 3.5-5.1 [facility] Sodium [Moles/Vol] 139 mmol/L 136-145 [facility] Triglyceride [Mass/Vol] 133 mg/dL <199 [facility] Comment on above: The drugs N-Acetylcy steine and Metamizole may falsely depress this assay.Serum Triglycerides Reference Interval Normal <150 mg/dL Borderline high 150 - 199 mg/dL High 200 - 499 mg/dL Very High > or = 500 mg/dL WBC (Bld) [#/Vol] 7.8 10*3/uL 4.4-11.0 [facility] Blood erythrocytes count (nu mber/volume)Ordered By: Sae Carballo on 11-15-2022 RBC (Bld) [#/Vol] 4.32 10*6/uL 4.2-5.4 [facility] Blood hemoglobin measurement (mass/volume)Ordered By: Sae Carballo on 11-15-2022 Hemoglobin (Bld) [Mass/Vol] 12.9 g/dL 12.0-15.0 [facility] Blood lymphocytes/100 leukoc ytesOrdered By: Sae Carballo on 11-15-2022 Lymphocytes/100 WBC (Bld) 26.2 % 19-41 [facility] Blood monocytes/100 leukocyt esOrdered By: Sae Carballo on 11-15-2022 Monocytes/100 WBC (Bld) 9.4 % 0-10 [facility] Blood platelet mean volumeOr dered By: Sae Carballo on 11-15-2022 Platelet mean volume (Bld) [Entitic vol] 10.6 fL 6.2-12.0 [facility] Determination of erythrocyte mean corpuscular volume (MCV)Ordered By: Sae Carballo on 11-15-2022 MCV (RBC) [Entitic vol] 91.7 fL 81-99 [facility] Hematocrit Auto (Bld) [Volum e fraction]Ordered By: Sae Carballo on 11-15-2022 Hematocrit (Bld) [Volume fraction] 39.6 % 37-47 [facility] INR in Blood by Coagulation assayOrdered By: Sae Carballo on 11-15-2022 INR Coag (Bld) [Relative time] 2.0 {INR} [facility] Laboratory - Chemistry and C hemistry - challengeOrdered By: Sae Carballo on 11-15-2022 CO2 [Moles/Vol] 25.0 mmol/L 21.0-32.0 [facility] Urea nitrogen/Creatinine [Mass ratio] 15.8 mg/mg 10-20 [facility] Laboratory - CoagulationOrde red By: Sae Carballo on 11-15-2022 PT Coag (PPP) [Time] 23.0 s 11.7-14.9 [facility] Laboratory - Hematology and Cell countsOrdered By: Sae Carballo on 11-15-2022 Erythrocyte distribution width (RBC) [Entitic vol] 43.4 fL 35.1-43.9 [facility] Erythrocyte distribution width (RBC) [Ratio] 12.9 % 11.6-14.6 [facility] Immature granulocytes/100 WBC (Bld) 0.100 % 0.0-0.9 [facility] Comment on above: IG% - Immature Granu locytes (promyelocytes, myelocytes and metamyelocytes) > 1% indicates that a LEFT SHIFT is Present. MCH (RBC) [Entitic mass] 29.9 pg 27.0-32.0 [facility] Nucleated RBC/100 WBC (Bld) [Ratio] 0 % 0-5 [facility] MCHC Auto (RBC) [Mass/Vol]Or dered By: Sae Carballo on 11-15-2022 MCHC (RBC) [Mass/Vol] 32.6 g/dL 32-36 [facility] No Panel InformationOrdered By: Sae Carballo on 11-15-2022 Estimated Creatinine Clearance Calc 37.26 ml/min [facility] Estimated GFR (MDRD) Amer 78 mL/min >60 [facility] Comment on above: GFR Calc Estimated GFR (MDRD) Non-Af Amer 64 mL/min >60 [facility] Comment on above: Non- GFR Calc Platelets bldOrdered By: Ramos Carballo on 11-15-2022 Platelets (Bld) [#/Vol] 278 10*3/uL 150-450 [facility] Serum or plasma calcium viktoria urement (mass/volume)Ordered By: Sae Carballo on 11-15-2022 Calcium [Mass/Vol] 8.5 mg/dL 8.5-10.1 [facility] Serum or plasma cholesterol in HDL measurement (mass/volume)Ordered By: Sae Carballo on 11-15-2022 Cholesterol in HDL [Mass/Vol] 49 mg/dL >40 [facility] Comment on above: The drugs N-Acetylcy steine and Metamizole may falsely depress this assay. Reference Range HDL <40 mg/dL Low HDL Cholesterol HDL >or= 60 mg/dL High HDL Cholesterol Serum or plasma cholesterol in VLDL measurement (mass/volume)Ordered By: Sae Carballo on 11-15-2022 Cholesterol in VLDL [Mass/Vol] 27 mg/dL 5-40 [facility] Serum or plasma creatinine m easurement (mass/volume)Ordered By: Sae Carballo on 11-15-2022 Creatinine [Mass/Vol] 0.88 mg/dL 0.55-1.02 [facility] Comment on above: The validity of the calculated GFR & GFRAA in patients over 70 years has not been determined. Clinical correlation is essential. Serum or plasma low density lipoprotein (LDL) cholesterol measurement (mass/volume)Ordered By: Sae Carballo on 11-15-2022 Cholesterol in LDL [Mass/Vol] 88 mg/dL 0-130 [facility] Serum or plasma urea nitroge n measurement (mass/volume)Ordered By: Sae Carballo on 11-15-2022 Urea nitrogen [Mass/Vol] 14 mg/dL - [facility] Thin prep Papanicolaou smear with manual screeningOrdered By: Sae Carballo on 11-15-2022 Thin prep Papanicolaou smear with manual screening 7 - [facility] Absolute lymphocyte countOrd ered By: Neri Mitchell on 11-14-2022 Lymphocytes Auto (Unsp spec) [#/Vol] 2.35 10*3/uL 0.83-4.51 [facility] Basophil percentageOrdered B y: Neri Mitchell on 11-14-2022 Basophils/100 WBC (Bld) 0.6 % 0-1 [facility] Chloride [Moles/Vol] 104 mmol/L 98-107 [facility] Eosinophils/100 WBC (Bld) 2.4 % 0-5 [facility] Glucose [Mass/Vol] 135 mg/dL 74-106 [facility] Comment on above: Fasting Glucose resu lt greater than or equal to 126 mg/dL suggests DIABETES MELLITUS per A.D.A. criteria. Neutrophils (Bld) [#/Vol] 6.0 10*3/uL 2.0-7.7 [facility] [facility] Neutrophils/100 WBC (Bld) 64.0 % 47-70 [facility] Potassium [Moles/Vol] 4.0 mmol/L 3.5-5.1 [facility] Sodium [Moles/Vol] 138 mmol/L 136-145 [facility] WBC (Bld) [#/Vol] 9.4 10*3/uL 4.4-11.0 [facility] Blood erythrocytes count (nu mber/volume)Ordered By: Neri Mitchell on 11-14-2022 RBC (Bld) [#/Vol] 4.79 10*6/uL 4.2-5.4 [facility] Blood hemoglobin measurement (mass/volume)Ordered By: Neri Mitchell on 11-14-2022 Hemoglobin (Bld) [Mass/Vol] 14.3 g/dL 12.0-15.0 [facility] Blood lymphocytes/100 leukoc ytesOrdered By: Neri Mitchell on 11-14-2022 Lymphocytes/100 WBC (Bld) 24.9 % 19-41 [facility] Blood monocytes/100 leukocyt esOrdered By: Neri Mitchell on 11-14-2022 Monocytes/100 WBC (Bld) 7.8 % 0-10 [facility] Blood platelet mean volumeOr dered By: Neri Mitchell on 11-14-2022 Platelet mean volume (Bld) [Entitic vol] 10.6 fL 6.2-12.0 [facility] Determination of erythrocyte mean corpuscular volume (MCV)Ordered By: Neri Mitchell on 11-14-2022 MCV (RBC) [Entitic vol] 93.5 fL 81-99 [facility] Glucose Glucometer (dC) [M ass/Vol]Ordered By: Neri Mitchell on 11-14-2022 Glucose [Mass/Vol] 136 mg/dL 74-106 [facility] Comment on above: MANAGEMENT OF PATIEN T CARE PER NURSING PROTOCOL Hematocrit Auto (Bld) [Volum e fraction]Ordered By: Neri Mitchell on 11-14-2022 Hematocrit (Bld) [Volume fraction] 44.8 % 37-47 [facility] INR in Blood by Coagulation assayOrdered By: Neri Mitchell on 11-14-2022 INR Coag (Bld) [Relative time] 1.8 {INR} [facility] Laboratory - Chemistry and C hemistry - challengeOrdered By: Neri Mitchell on 11-14-2022 CO2 [Moles/Vol] 28.0 mmol/L 21.0-32.0 [facility] Urea nitrogen/Creatinine [Mass ratio] 12.3 mg/mg 10-20 [facility] Laboratory - CoagulationOrde red By: Neri Mitchell on 11-14-2022 aPTT Coag (Bld) [Time] 43.3 s 24.1-36.2 [facility] PT Coag (PPP) [Time] 21.3 s 11.7-14.9 [facility] Laboratory - Hematology and Cell countsOrdered By: Neri Mitchell on 11-14-2022 Erythrocyte distribution width (RBC) [Entitic vol] 44.7 fL 35.1-43.9 [facility] Erythrocyte distribution width (RBC) [Ratio] 13.0 % 11.6-14.6 [facility] Immature granulocytes/100 WBC (Bld) 0.300 % 0.0-0.9 [facility] Comment on above: IG% - Immature Granu locytes (promyelocytes, myelocytes and metamyelocytes) > 1% indicates that a LEFT SHIFT is Present. MCH (RBC) [Entitic mass] 29.9 pg 27.0-32.0 [facility] Nucleated RBC/100 WBC (Bld) [Ratio] 0 % 0-5 [facility] MCHC Auto (RBC) [Mass/Vol]Or dered By: Neri Mitchell on 11-14-2022 MCHC (RBC) [Mass/Vol] 31.9 g/dL 32-36 [facility] No Panel InformationOrdered By: Neri Mitchell on 11-14-2022 Estimated Creatinine Clearance Calc 28.76 ml/min [facility] Estimated GFR (MDRD) Amer 58 mL/min >60 [facility] Comment on above: GFR Calc Estimated GFR (MDRD) Non-Af Amer 48 mL/min >60 [facility] Comment on above: Non- GFR Calc Troponin I High Sensitivity 10 pg/mL 3.0-54.0 [facility] Comment on above: Please Note: New Evon t Units and Gender Specific Reference Ranges. For more information see Policy Stat Procedure [place] High Sensitivity Troponin (TNIH) and attachments. Platelets bldOrdered By: Prasad Mitchell on 11-14-2022 Platelets (Bld) [#/Vol] 313 10*3/uL 150-450 [facility] Serum or plasma calcium viktoria urement (mass/volume)Ordered By: Neri Mitchell on 11-14-2022 Calcium [Mass/Vol] 9.0 mg/dL 8.5-10.1 [facility] Serum or plasma creatinine m easurement (mass/volume)Ordered By: Neri Mitchell on 11-14-2022 Creatinine [Mass/Vol] 1.14 mg/dL 0.55-1.02 [facility] Comment on above: The validity of the calculated GFR & GFRAA in patients over 70 years has not been determined. Clinical correlation is essential. Serum or plasma urea nitroge n measurement (mass/volume)Ordered By: Neri Mitchell on 11-14-2022 Urea nitrogen [Mass/Vol] 14 mg/dL 7-18 [facility] Thin prep Papanicolaou smear with manual screeningOrdered By: Neri Mitchell on 11-14-2022 Thin prep Papanicolaou smear with manual screening 6 5-15 [facility] INR in Blood by Coagulation assayOrdered By: Dr. Juarez on 09-18-2022 INR Coag (Bld) [Relative time] 1.8 {INR} [facility] Laboratory - CoagulationOrde red By: Dr. Juarez on 09-18-2022 PT Coag (PPP) [Time] 20.9 s 11.7-14.9 [facility] No Panel InformationOrdered By: Anant Juarez on 09-18-2022 Free Lambda Light Chains, Quant 15.7 mg/L 5.7-26.3 [facility] Whole Blood Vitamin B1 Level 111.8 nmol/L 66.5-200.0 [facility] Comment on above: Performed at: [address] [id number] Director: Master Vee PhD, Phone: [phone] at: [facility] [address] [id number] Director: Brandon Wells MD, Phone: [phone] Serum immunoglobulin kappa l ight chains/immunoglobulin lambda light chains mass ratioOrdered By: Anant Juarez on 09-18-2022 Immunoglobulin light chains.kappa/Immunoglobul in light chains.lambda (S) [Mass ratio] 1.74 0.26-1.65 [facility] Serum or plasma folate measu rement (mass/volume)Ordered By: Dr. Juarez on 09-18-2022 Folate [Mass/Vol] 51.90 ng/mL 3.1-55.4 [facility] Comment on above: Slight Hemolysis, Re sult may be falsely increased. Serum or plasma immunoglobul in kappa light chains measurement (mass/volume)Ordered By: Anant Juarez on 09-18-2022 Immunoglobulin light chains.kappa [Mass/Vol] 27.3 mg/L 3.3-19.4 [facility] Culture, urineOrdered By: Slim Doran on 09-17-2022 Bacteria identified Cx Nom (U) Streptococcus agalactiae (B) [facility] INR in Blood by Coagulation assayOrdered By: Dr. Doran on 09-13-2022 INR Coag (Bld) [Relative time] 1.5 {INR} [facility] Laboratory - CoagulationOrde red By: Dr. Doran on 09-13-2022 PT Coag (PPP) [Time] 18.1 s 11.7-14.9 [facility] Absolute lymphocyte countOrd ered By: Dr. Barcenas on 09-08-2022 Lymphocytes Auto (Unsp spec) [#/Vol] 2.60 10*3/uL 0.83-4.51 [facility] Basophil percentageOrdered B y: Dr. Barcenas on 09-08-2022 Basophil percentage 0 SEEN /hpf 0-5 [facility] Basophils/100 WBC (Bld) 0.4 % 0-1 [facility] Bilirubin [Mass/Vol] 0.30 mg/dL 0.20-1.00 [facility] Comment on above: For patients on eltr ombopag therapy, use of Dimension [place] TBIL is not recommended. Chloride [Moles/Vol] 103 mmol/L 98-107 [facility] Eosinophils/100 WBC (Bld) 2.3 % 0-5 [facility] Glucose [Mass/Vol] 78 mg/dL 74-106 [facility] Neutrophils (Bld) [#/Vol] 5.2 10*3/uL 2.0-7.7 [facility] Neutrophils/100 WBC (Bld) 57.4 % 47-70 [facility] Potassium [Moles/Vol] 3.8 mmol/L 3.5-5.1 [facility] Protein [Mass/Vol] 6.9 g/dL 6.4-8.2 [facility] Sodium [Moles/Vol] 139 mmol/L 136-145 [facility] WBC (Bld) [#/Vol] 9.1 10*3/uL 4.4-11.0 [facility] Bilirubin Test strip Ql (U)O rdered By: Dr. Barcenas on 09-08-2022 Bilirubin Ql (U) Negative Negative [facility] Blood erythrocytes count (nu mber/volume)Ordered By: Dr. Barcenas on 09-08-2022 RBC (Bld) [#/Vol] 4.48 10*6/uL 4.2-5.4 [facility] Blood hemoglobin measurement (mass/volume)Ordered By: Dr. Barcenas on 09-08-2022 Hemoglobin (Bld) [Mass/Vol] 13.4 g/dL 12.0-15.0 [facility] Blood lymphocytes/100 leukoc ytesOrdered By: Dr. Barcenas on 09-08-2022 Lymphocytes/100 WBC (Bld) 28.5 % 19-41 [facility] Blood monocytes/100 leukocyt esOrdered By: Dr. Barcenas on 09-08-2022 Monocytes/100 WBC (Bld) 11.1 % 0-10 [facility] Blood platelet mean volumeOr dered By: Dr. Barcenas on 09-08-2022 Platelet mean volume (Bld) [Entitic vol] 10.7 fL 6.2-12.0 [facility] Determination of erythrocyte mean corpuscular volume (MCV)Ordered By: Dr. Barcenas on 09-08-2022 MCV (RBC) [Entitic vol] 92.4 fL 81-99 [facility] Hematocrit Auto (Bld) [Volum e fraction]Ordered By: Dr. Barcenas on 09-08-2022 Hematocrit (Bld) [Volume fraction] 41.4 % 37-47 [facility] INR in Blood by Coagulation assayOrdered By: Dr. Barcenas on 09-08-2022 INR Coag (Bld) [Relative time] 1.0 {INR} [facility] Ketones Test strip Ql (U)Ord ered By: Dr. Barcenas on 09-08-2022 Ketones Ql (U) Negative Negative [facility] Laboratory - Chemistry and C hemistry - challengeOrdered By: Dr. Barcenas on 09-08-2022 ALP [Catalytic activity/Vol] 71 U/L 45-117 [facility] ALT [Catalytic activity/Vol] 9 U/L 13-56 [facility] CO2 [Moles/Vol] 30.0 mmol/L 21.0-32.0 [facility] Globulin (S) [Mass/Vol] 3.7 g/dL 2.2-4.2 [facility] Urea nitrogen/Creatinine [Mass ratio] 17.1 mg/mg 10-20 [facility] Laboratory - CoagulationOrde red By: Dr. Barcenas on 09-08-2022 PT Coag (PPP) [Time] 13.6 s 11.7-14.9 [facility] Laboratory - Hematology and Cell countsOrdered By: Dr. Barcenas on 09-08-2022 Erythrocyte distribution width (RBC) [Entitic vol] 44.8 fL 35.1-43.9 [facility] Erythrocyte distribution width (RBC) [Ratio] 13.2 % 11.6-14.6 [facility] Immature granulocytes/100 WBC (Bld) 0.300 % 0.0-0.9 [facility] Comment on above: IG% - Immature Granu locytes (promyelocytes, myelocytes and metamyelocytes) > 1% indicates that a LEFT SHIFT is Present. MCH (RBC) [Entitic mass] 29.9 pg 27.0-32.0 [facility] Nucleated RBC/100 WBC (Bld) [Ratio] 0 % 0-5 [facility] MCHC Auto (RBC) [Mass/Vol]Or dered By: Dr. Barcenas on 09-08-2022 MCHC (RBC) [Mass/Vol] 32.4 g/dL 32-36 [facility] Mucus LM Ql (Urine sed)Order ed By: Dr. Barcenas on 09-08-2022 Mucus Ql (Urine sed) 0 SEEN /hpf [facility] Nitrite Test strip Ql (U)Ord ered By: Dr. Barcenas on 09-08-2022 Nitrite Ql (U) Negative Negative [facility] No Panel InformationOrdered By: Dr. Barcenas on 09-08-2022 Estimated Creatinine Clearance Calc 31.23 ml/min [facility] Estimated GFR (MDRD) Amer 64 mL/min >60 [facility] Comment on above: GFR Calc Estimated GFR (MDRD) Non-Af Amer 53 mL/min >60 [facility] Comment on above: Non- GFR Calc Troponin I High Sensitivity 86 pg/mL 3.0-54.0 [facility] Comment on above: Please Note: New Evon t Units and Gender Specific Reference Ranges. For more information see Policy Stat Procedure [place] High Sensitivity Troponin (TNIH) and attachments. Platelets bldOrdered By: Dr. Barcenas on 09-08-2022 Platelets (Bld) [#/Vol] 294 10*3/uL 150-450 [facility] Protein Test strip Ql (U)Ord ered By: Dr. Barcenas on 09-08-2022 Protein Ql (U) Negative Negative [facility] Serum or plasma albumin viktoria urement (mass/volume)Ordered By: Dr. Barcenas on 09-08-2022 Albumin [Mass/Vol] 3.2 g/dL 3.2-5.0 [facility] Serum or plasma albumin/glob ulin mass ratioOrdered By: Dr. Barcenas on 09-08-2022 Albumin/Globulin [Mass ratio] 0.9 {ratio} 0.9-2.4 [facility] Serum or plasma calcium viktoria urement (mass/volume)Ordered By: Dr. Barcenas on 09-08-2022 Calcium [Mass/Vol] 8.8 mg/dL 8.5-10.1 [facility] Serum or plasma creatinine m easurement (mass/volume)Ordered By: Dr. Barcenas on 09-08-2022 Creatinine [Mass/Vol] 1.05 mg/dL 0.55-1.02 [facility] Comment on above: The validity of the calculated GFR & GFRAA in patients over 70 years has not been determined. Clinical correlation is essential. Serum or plasma urea nitroge n measurement (mass/volume)Ordered By: Dr. Barcenas on 09-08-2022 Urea nitrogen [Mass/Vol] 18 mg/dL 7-18 [facility] Squamous epithelial cells de tection in urine sediment by light microscopyOrdered By: Dr. Barcenas on 09-08-2022 Epithelial cells.squamous LM Ql (Urine sed) 0-5 SEEN /hpf 5-10 [facility] Thin prep Papanicolaou smear with manual screeningOrdered By: Dr. Barcenas on 09-08-2022 Thin prep Papanicolaou smear with manual screening 9 U/L 15-37 [facility] Thin prep Papanicolaou smear with manual screening 6 5-15 [facility] Urine blood detectionOrdered By: Dr. Barcenas on 09-08-2022 RBC Ql (U) Negative Negative [facility] RBC Ql (U) 0 SEEN /hpf 0-5 [facility] Urine clarityOrdered By: Dr. Barcenas on 09-08-2022 Clarity (U) Clear Clear [facility] Urine color determinationOrd ered By: Dr. Barcenas on 09-08-2022 Color (U) Yellow Yellow [facility] Urine glucose detectionOrder ed By: Dr. Barcenas on 09-08-2022 Glucose Ql (U) Normal mg/dl Normal [facility] Urine leukocyte esterase det ection by dipstickOrdered By: Dr. Barcenas on 09-08-2022 Leukocyte esterase Test strip Ql (U) Negative Negative [facility] Urine pHOrdered By: Dr. Moody delgado on 09-08-2022 pH (U) 6.5 [pH] 5.0 - 8.0 [facility] Urine sediment bacteria coun t by microscopy (number/high power field)Ordered By: Dr. Barcenas on 09-08-2022 Bacteria LM.HPF (Urine sed) [#/Area] 0 /[HPF] None Seen [facility] Urine specific gravity measu rementOrdered By: Dr. Barcenas on 09-08-2022 Specific gravity (U) [Rel density] 1.010 1.002-1.030 [facility] Urobilinogen Auto test strip Ql (U)Ordered By: Dr. aBrcenas on 09-08-2022 Urobilinogen Ql (U) Normal mg/dl Normal [facility] Absolute lymphocyte countOrd ered By: Dr. Doran on 09-05-2022 Lymphocytes Auto (Unsp spec) [#/Vol] 1.27 10*3/uL 0.83-4.51 [facility] Basophil percentageOrdered B y: Dr. Doran on 09-05-2022 Basophils/100 WBC (Bld) 0.4 % 0-1 [facility] Chloride [Moles/Vol] 106 mmol/L 98-107 [facility] Eosinophils/100 WBC (Bld) 1.0 % 0-5 [facility] Glucose [Mass/Vol] 202 mg/dL 74-106 [facility] Comment on above: Glucose result great er than or equal to 200 mg/dLsuggests DIABETES MELLITUS per A.D.A. criteria. Neutrophils (Bld) [#/Vol] 8.3 10*3/uL 2.0-7.7 [facility] Neutrophils/100 WBC (Bld) 79.7 % 47-70 [facility] Potassium [Moles/Vol] 3.7 mmol/L 3.5-5.1 [facility] Sodium [Moles/Vol] 139 mmol/L 136-145 [facility] WBC (Bld) [#/Vol] 10.4 10*3/uL 4.4-11.0 [facility] Blood erythrocytes count (nu mber/volume)Ordered By: Dr. Doran on 09-05-2022 RBC (Bld) [#/Vol] 4.72 10*6/uL 4.2-5.4 [facility] Blood hemoglobin measurement (mass/volume)Ordered By: Dr. Doran on 09-05-2022 Hemoglobin (Bld) [Mass/Vol] 14.1 g/dL 12.0-15.0 [facility] Blood lymphocytes/100 leukoc ytesOrdered By: Dr. Doran on 09-05-2022 Lymphocytes/100 WBC (Bld) 12.3 % 19-41 [facility] Blood monocytes/100 leukocyt esOrdered By: Dr. Doran on 09-05-2022 Monocytes/100 WBC (Bld) 6.3 % 0-10 [facility] Blood platelet mean volumeOr dered By: Dr. Doran on 09-05-2022 Platelet mean volume (Bld) [Entitic vol] 11.2 fL 6.2-12.0 [facility] Determination of erythrocyte mean corpuscular volume (MCV)Ordered By: Dr. Doran on 09-05-2022 MCV (RBC) [Entitic vol] 93.9 fL 81-99 [facility] Hematocrit Auto (Bld) [Volum e fraction]Ordered By: Dr. Doran on 09-05-2022 Hematocrit (Bld) [Volume fraction] 44.3 % 37-47 [facility] INR in Blood by Coagulation assayOrdered By: Dr. Doran on 09-05-2022 INR Coag (Bld) [Relative time] 1.1 {INR} [facility] Laboratory - Chemistry and C hemistry - challengeOrdered By: Dr. Doran on 09-05-2022 CO2 [Moles/Vol] 24.0 mmol/L 21.0-32.0 [facility] Urea nitrogen/Creatinine [Mass ratio] 18.3 mg/mg 10-20 [facility] Laboratory - CoagulationOrde red By: Dr. Doran on 09-05-2022 PT Coag (PPP) [Time] 13.8 s 11.7-14.9 [facility] Laboratory - Hematology and Cell countsOrdered By: Dr. Doran on 09-05-2022 Erythrocyte distribution width (RBC) [Entitic vol] 45.5 fL 35.1-43.9 [facility] Erythrocyte distribution width (RBC) [Ratio] 13.2 % 11.6-14.6 [facility] Immature granulocytes/100 WBC (Bld) 0.300 % 0.0-0.9 [facility] Comment on above: IG% - Immature Granu locytes (promyelocytes, myelocytes and metamyelocytes) > 1% indicates that a LEFT SHIFT is Present. MCH (RBC) [Entitic mass] 29.9 pg 27.0-32.0 [facility] Nucleated RBC/100 WBC (Bld) [Ratio] 0 % 0-5 [facility] MCHC Auto (RBC) [Mass/Vol]Or dered By: Dr. Doran on 09-05-2022 MCHC (RBC) [Mass/Vol] 31.8 g/dL 32-36 [facility] No Panel InformationOrdered By: Dr. Doran on 09-05-2022 Estimated GFR (MDRD) Amer 61 mL/min >60 [facility] Comment on above: GFR Calc Estimated GFR (MDRD) Non-Af Amer 50 mL/min >60 [facility] Comment on above: Non- GFR Calc Thyroid Stimulating Hormone (TSH) 2.84 uIU/mL 0.358-3.74 [facility] Platelets bldOrdered By: Dr. Doran on 09-05-2022 Platelets (Bld) [#/Vol] 311 10*3/uL 150-450 [facility] Serum or plasma calcium viktoria urement (mass/volume)Ordered By: Dr. Doran on 09-05-2022 Calcium [Mass/Vol] 8.8 mg/dL 8.5-10.1 [facility] Serum or plasma creatinine m easurement (mass/volume)Ordered By: Dr. Doran on 09-05-2022 Creatinine [Mass/Vol] 1.09 mg/dL 0.55-1.02 [facility] Comment on above: The validity of the calculated GFR & GFRAA in patients over 70 years has not been determined. Clinical correlation is essential. Serum or plasma urea nitroge n measurement (mass/volume)Ordered By: Dr. Doran on 09-05-2022 Urea nitrogen [Mass/Vol] 20 mg/dL 7-18 [facility] Thin prep Papanicolaou smear with manual screeningOrdered By: Dr. Doran on 09-05-2022 Thin prep Papanicolaou smear with manual screening 9 5-15 [facility] Absolute lymphocyte countOrd ered By: Dr. Doran on 08-08-2022 Lymphocytes Auto (Unsp spec) [#/Vol] 1.97 10*3/uL 0.83-4.51 [facility] Basophil percentageOrdered B y: Dr. Doran on 08-08-2022 Basophils/100 WBC (Bld) 0.5 % 0-1 [facility] Chloride [Moles/Vol] 105 mmol/L 98-107 [facility] Eosinophils/100 WBC (Bld) 3.2 % 0-5 [facility] Glucose [Mass/Vol] 147 mg/dL 74-106 [facility] Comment on above: Fasting Glucose resu lt greater than or equal to 126 mg/dL suggests DIABETES MELLITUS per A.D.A. criteria. Neutrophils (Bld) [#/Vol] 4.6 10*3/uL 2.0-7.7 [facility] Neutrophils/100 WBC (Bld) 60.9 % 47-70 [facility] Potassium [Moles/Vol] 4.9 mmol/L 3.5-5.1 [facility] Sodium [Moles/Vol] 140 mmol/L 136-145 [facility] WBC (Bld) [#/Vol] 7.5 10*3/uL 4.4-11.0 [facility] Blood erythrocytes count (nu mber/volume)Ordered By: Dr. Doran on 08-08-2022 RBC (Bld) [#/Vol] 4.73 10*6/uL 4.2-5.4 [facility] Blood hemoglobin measurement (mass/volume)Ordered By: Dr. Doran on 08-08-2022 Hemoglobin (Bld) [Mass/Vol] 14.0 g/dL 12.0-15.0 [facility] Blood lymphocytes/100 leukoc ytesOrdered By: Dr. Doran on 08-08-2022 Lymphocytes/100 WBC (Bld) 26.2 % 19-41 [facility] Blood monocytes/100 leukocyt esOrdered By: Dr. Doran on 08-08-2022 Monocytes/100 WBC (Bld) 8.8 % 0-10 [facility] Blood platelet mean volumeOr dered By: Dr. Doran on 08-08-2022 Platelet mean volume (Bld) [Entitic vol] 10.9 fL 6.2-12.0 [facility] Determination of erythrocyte mean corpuscular volume (MCV)Ordered By: Dr. Doran on 08-08-2022 MCV (RBC) [Entitic vol] 94.1 fL 81-99 [facility] Hematocrit Auto (Bld) [Volum e fraction]Ordered By: Dr. Doran on 08-08-2022 Hematocrit (Bld) [Volume fraction] 44.5 % 37-47 [facility] Laboratory - Chemistry and C hemistry - challengeOrdered By: Dr. Doran on 08-08-2022 CO2 [Moles/Vol] 29.0 mmol/L 21.0-32.0 [facility] Cobalamin (Vitamin B12) [Mass/Vol] 853 pg/mL 211-911 [facility] Urea nitrogen/Creatinine [Mass ratio] 18.3 mg/mg 10-20 [facility] Laboratory - Hematology and Cell countsOrdered By: Dr. Doran on 08-08-2022 Erythrocyte distribution width (RBC) [Entitic vol] 45.5 fL 35.1-43.9 [facility] Erythrocyte distribution width (RBC) [Ratio] 13.2 % 11.6-14.6 [facility] Immature granulocytes/100 WBC (Bld) 0.400 % 0.0-0.9 [facility] Comment on above: IG% - Immature Granu locytes (promyelocytes, myelocytes and metamyelocytes) > 1% indicates that a LEFT SHIFT is Present. MCH (RBC) [Entitic mass] 29.6 pg 27.0-32.0 [facility] Nucleated RBC/100 WBC (Bld) [Ratio] 0 % 0-5 [facility] MCHC Auto (RBC) [Mass/Vol]Or dered By: Dr. Doran on 08-08-2022 MCHC (RBC) [Mass/Vol] 31.5 g/dL 32-36 [facility] No Panel InformationOrdered By: Dr. Doran on 08-08-2022 Estimated GFR (MDRD) Amer 57 mL/min >60 [facility] Comment on above: GFR Calc Estimated GFR (MDRD) Non-Af Amer 47 mL/min >60 [facility] Comment on above: Non- GFR Calc Vitamin D 25-Hydroxy 35.5 ng/mL [facility] Comment on above: Vitamin D 25(OH) Sta tus Range Deficiency <20 ng/mL (50nmol/L) Insufficiency 20 - 30 ng/mL (50 - 75 nmol/L) Sufficiency 30 - 100 ng/mL (75 - 250 nmol/L) Toxicity >100 ng/mL (>250 nmol/L) Platelets bldOrdered By: Dr. Doran on 08-08-2022 Platelets (Bld) [#/Vol] 365 10*3/uL 150-450 [facility] Serum or plasma calcium viktoria urement (mass/volume)Ordered By: Dr. Doran on 08-08-2022 Calcium [Mass/Vol] 9.2 mg/dL 8.5-10.1 [facility] Serum or plasma creatinine m easurement (mass/volume)Ordered By: Dr. Doran on 08-08-2022 Creatinine [Mass/Vol] 1.15 mg/dL 0.55-1.02 [facility] Comment on above: The validity of the calculated GFR & GFRAA in patients over 70 years has not been determined. Clinical correlation is essential. Serum or plasma ferritin rich surement (mass/volume)Ordered By: Dr. Doran on 08-08-2022 Ferritin [Mass/Vol] 83 ng/mL 8-252 [facility] Serum or plasma urea nitroge n measurement (mass/volume)Ordered By: Dr. Doran on 08-08-2022 Urea nitrogen [Mass/Vol] 21 mg/dL 7-18 [facility] Thin prep Papanicolaou smear with manual screeningOrdered By: Dr. Doran on 08-08-2022 Thin prep Papanicolaou smear with manual screening 6 5-15 [facility] Absolute lymphocyte countOrd ered By: Dr. Doran on 06-26-2022 Lymphocytes Auto (Unsp spec) [#/Vol] 2.42 10*3/uL 0.83-4.51 [facility] Basophil percentageOrdered B y: Dr. Doran on 06-26-2022 Basophils/100 WBC (Bld) 0.5 % 0-1 [facility] Bilirubin [Mass/Vol] 0.40 mg/dL 0.20-1.00 [facility] Comment on above: For patients on eltr ombopag therapy, use of Dimension [place] TBIL is not recommended. Chloride [Moles/Vol] 106 mmol/L 98-107 [facility] [facility] Cholesterol [Mass/Vol] 163 mg/dL <200 [facility] Comment on above: <200 mg/dL Desirable 200-240 mg/dL Borderline >240 mg/dL High Risk Eosinophils/100 WBC (Bld) 4.2 % 0-5 [facility] Glucose [Mass/Vol] 142 mg/dL 74-106 [facility] Comment on above: Fasting Glucose resu lt greater than or equal to 126 mg/dL suggests DIABETES MELLITUS per A.D.A. criteria. Neutrophils (Bld) [#/Vol] 3.9 10*3/uL 2.0-7.7 [facility] Neutrophils/100 WBC (Bld) 53.1 % 47-70 [facility] Potassium [Moles/Vol] 4.3 mmol/L 3.5-5.1 [facility] Protein [Mass/Vol] 6.9 g/dL 6.4-8.2 [facility] Sodium [Moles/Vol] 139 mmol/L 136-145 [facility] Triglyceride [Mass/Vol] 178 mg/dL <199 [facility] Comment on above: The drugs N-Acetylcy steine and Metamizole may falsely depress this assay.Serum Triglycerides Reference Interval Normal <150 mg/dL Borderline high 150 - 199 mg/dL High 200 - 499 mg/dL Very High > or = 500 mg/dL WBC (Bld) [#/Vol] 7.4 10*3/uL 4.4-11.0 [facility] Blood erythrocytes count (nu mber/volume)Ordered By: Dr. Doran on 06-26-2022 RBC (Bld) [#/Vol] 4.51 10*6/uL 4.2-5.4 [facility] Blood hemoglobin measurement (mass/volume)Ordered By: Dr. Doran on 06-26-2022 Hemoglobin (Bld) [Mass/Vol] 13.5 g/dL 12.0-15.0 [facility] Blood lymphocytes/100 leukoc ytesOrdered By: Dr. Doran on 06-26-2022 Lymphocytes/100 WBC (Bld) 32.9 % 19-41 [facility] Blood monocytes/100 leukocyt esOrdered By: Dr. Doran on 06-26-2022 Monocytes/100 WBC (Bld) 9.0 % 0-10 [facility] Blood platelet mean volumeOr dered By: Dr. Doran on 06-26-2022 Platelet mean volume (Bld) [Entitic vol] 10.2 fL 6.2-12.0 [facility] Determination of erythrocyte mean corpuscular volume (MCV)Ordered By: Dr. Doran on 06-26-2022 MCV (RBC) [Entitic vol] 92.5 fL 81-99 [facility] Hematocrit Auto (Bld) [Volum e fraction]Ordered By: Dr. Doran on 06-26-2022 Hematocrit (Bld) [Volume fraction] 41.7 % 37-47 [facility] Laboratory - Chemistry and C hemistry - challengeOrdered By: Dr. Doran on 06-26-2022 ALP [Catalytic activity/Vol] 69 U/L 45-117 [facility] ALT [Catalytic activity/Vol] 13 U/L 13-56 [facility] CO2 [Moles/Vol] 29.0 mmol/L 21.0-32.0 [facility] Globulin (S) [Mass/Vol] 3.7 g/dL 2.2-4.2 [facility] Urea nitrogen/Creatinine [Mass ratio] 18.0 mg/mg 10-20 [facility] Laboratory - Hematology and Cell countsOrdered By: Dr. Doran on 06-26-2022 Erythrocyte distribution width (RBC) [Entitic vol] 43.9 fL 35.1-43.9 [facility] Erythrocyte distribution width (RBC) [Ratio] 12.9 % 11.6-14.6 [facility] Immature granulocytes/100 WBC (Bld) 0.300 % 0.0-0.9 [facility] Comment on above: IG% - Immature Granu locytes (promyelocytes, myelocytes and metamyelocytes) > 1% indicates that a LEFT SHIFT is Present. MCH (RBC) [Entitic mass] 29.9 pg 27.0-32.0 [facility] Nucleated RBC/100 WBC (Bld) [Ratio] 0 % 0-5 [facility] MCHC Auto (RBC) [Mass/Vol]Or dered By: Dr. Doran on 06-26-2022 MCHC (RBC) [Mass/Vol] 32.4 g/dL 32-36 [facility] No Panel InformationOrdered By: Dr. Doran on 06-26-2022 Estimated GFR (MDRD) Amer 60 mL/min >60 [facility] Comment on above: GFR Calc Estimated GFR (MDRD) Non-Af Amer 49 mL/min >60 [facility] Comment on above: Non- GFR Calc Platelets bldOrdered By: Dr. Doran on 06-26-2022 Platelets (Bld) [#/Vol] 314 10*3/uL 150-450 [facility] Serum or plasma albumin viktoria urement (mass/volume)Ordered By: Dr. Doran on 06-26-2022 Albumin [Mass/Vol] 3.2 g/dL 3.2-5.0 [facility] Serum or plasma albumin/glob ulin mass ratioOrdered By: Dr. Doran on 06-26-2022 Albumin/Globulin [Mass ratio] 0.9 {ratio} 0.9-2.4 [facility] Serum or plasma calcium viktoria urement (mass/volume)Ordered By: Dr. Doran on 06-26-2022 Calcium [Mass/Vol] 8.8 mg/dL 8.5-10.1 [facility] Serum or plasma cholesterol in HDL measurement (mass/volume)Ordered By: Dr. Doran on 06-26-2022 Cholesterol in HDL [Mass/Vol] 47 mg/dL >40 [facility] Comment on above: The drugs N-Acetylcy steine and Metamizole may falsely depress this assay. Reference Range HDL <40 mg/dL Low HDL Cholesterol HDL >or= 60 mg/dL High HDL Cholesterol Serum or plasma cholesterol in VLDL measurement (mass/volume)Ordered By: Dr. Doran on 06-26-2022 Cholesterol in VLDL [Mass/Vol] 36 mg/dL 5-40 [facility] Serum or plasma creatinine m easurement (mass/volume)Ordered By: Dr. Doran on 06-26-2022 Creatinine [Mass/Vol] 1.11 mg/dL 0.55-1.02 [facility] Comment on above: The validity of the calculated GFR & GFRAA in patients over 70 years has not been determined. Clinical correlation is essential. Serum or plasma low density lipoprotein (LDL) cholesterol measurement (mass/volume)Ordered By: Dr. Doran on 06-26-2022 Cholesterol in LDL [Mass/Vol] 80 mg/dL 0-130 [facility] Serum or plasma urea nitroge n measurement (mass/volume)Ordered By: Dr. Doran on 06-26-2022 Urea nitrogen [Mass/Vol] 20 mg/dL 7-18 [facility] Thin prep Papanicolaou smear with manual screeningOrdered By: Dr. Doran on 06-26-2022 Thin prep Papanicolaou smear with manual screening 15 U/L 15-37 [facility] Thin prep Papanicolaou smear with manual screening 4 5-15 [facility] Absolute lymphocyte countOrd ered By: Reese Shankar on 02-11-2022 Lymphocytes Auto (Unsp spec) [#/Vol] 1.50 10*3/uL 0.83-4.51 [facility] Basophil percentageOrdered B y: Reese Shankar on 02-11-2022 Basophils/100 WBC (Bld) 0.4 % 0-1 [facility] Chloride [Moles/Vol] 102 mmol/L 98-107 [facility] Eosinophils/100 WBC (Bld) 1.7 % 0-5 [facility] Glucose [Mass/Vol] 153 mg/dL 74-106 [facility] Comment on above: Fasting Glucose resu lt greater than or equal to 126 mg/dL suggests DIABETES MELLITUS per A.D.A. criteria. Neutrophils (Bld) [#/Vol] 10.0 10*3/uL 2.0-7.7 [facility] Neutrophils/100 WBC (Bld) 79.1 % 47-70 [facility] Potassium [Moles/Vol] 3.9 mmol/L 3.5-5.1 [facility] Sodium [Moles/Vol] 138 mmol/L 136-145 [facility] WBC (Bld) [#/Vol] 12.7 10*3/uL 4.4-11.0 [facility] Blood erythrocytes count (nu mber/volume)Ordered By: Reese Shankar on 02-11-2022 RBC (Bld) [#/Vol] 4.24 10*6/uL 4.2-5.4 [facility] Blood hemoglobin measurement (mass/volume)Ordered By: Reese Shankar on 02-11-2022 Hemoglobin (Bld) [Mass/Vol] 12.8 g/dL 12.0-15.0 [facility] Blood lymphocytes/100 leukoc ytesOrdered By: Reese Shankar on 02-11-2022 Lymphocytes/100 WBC (Bld) 11.8 % 19-41 [facility] Blood monocytes/100 leukocyt esOrdered By: Reese Shankar on 02-11-2022 Monocytes/100 WBC (Bld) 6.7 % 0-10 [facility] Blood platelet mean volumeOr dered By: Reese Shankar on 02-11-2022 Platelet mean volume (Bld) [Entitic vol] 11.0 fL 6.2-12.0 [facility] Determination of erythrocyte mean corpuscular volume (MCV)Ordered By: Reese Shankar on 02-11-2022 MCV (RBC) [Entitic vol] 91.7 fL 81-99 [facility] Hematocrit Auto (Bld) [Volum e fraction]Ordered By: Reese Shankar on 02-11-2022 Hematocrit (Bld) [Volume fraction] 38.9 % 37-47 [facility] INR in Blood by Coagulation assayOrdered By: Reese Shankar on 02-11-2022 INR Coag (Bld) [Relative time] 2.7 {INR} [facility] Laboratory - Chemistry and C hemistry - challengeOrdered By: Reese Shankar on 02-11-2022 CO2 [Moles/Vol] 26.0 mmol/L 21.0-32.0 [facility] Magnesium [Mass/Vol] 2.2 mg/dL 1.6-2.6 [facility] Urea nitrogen/Creatinine [Mass ratio] 18.5 mg/mg 10-20 [facility] Laboratory - CoagulationOrde red By: Reese Shankar on 02-11-2022 PT Coag (PPP) [Time] 28.0 s 11.7-14.9 [facility] Laboratory - Hematology and Cell countsOrdered By: Reese Shankar on 02-11-2022 Erythrocyte distribution width (RBC) [Entitic vol] 43.5 fL 35.1-43.9 [facility] Erythrocyte distribution width (RBC) [Ratio] 12.9 % 11.6-14.6 [facility] Immature granulocytes/100 WBC (Bld) 0.300 % 0.0-0.9 [facility] Comment on above: IG% - Immature Granu locytes (promyelocytes, myelocytes and metamyelocytes) > 1% indicates that a LEFT SHIFT is Present. MCH (RBC) [Entitic mass] 30.2 pg 27.0-32.0 [facility] Nucleated RBC/100 WBC (Bld) [Ratio] 0 % 0-5 [facility] MCHC Auto (RBC) [Mass/Vol]Or dered By: Reese Shankar on 02-11-2022 MCHC (RBC) [Mass/Vol] 32.9 g/dL 32-36 [facility] No Panel InformationOrdered By: Reese Shankar on 02-11-2022 Estimated Creatinine Clearance Calc 19.31 ml/min [facility] Estimated GFR (MDRD) Amer 36 mL/min >60 [facility] Comment on above: GFR Calc Estimated GFR (MDRD) Non-Af Amer 30 mL/min >60 [facility] Comment on above: Non- GFR Calc Troponin I High Sensitivity 13 pg/mL 3.0-54.0 [facility] Comment on above: Please Note: New Evon t Units and Gender Specific Reference Ranges. For more information see Policy Stat Procedure [place] High Sensitivity Troponin (TNIH) and attachments. Platelets bldOrdered By: Dontae Shankar on 02-11-2022 Platelets (Bld) [#/Vol] 286 10*3/uL 150-450 [facility] Serum or plasma calcium viktoria urement (mass/volume)Ordered By: Reese Shankar on 02-11-2022 Calcium [Mass/Vol] 9.1 mg/dL 8.5-10.1 [facility] Serum or plasma creatinine m easurement (mass/volume)Ordered By: Reese Shankar on 02-11-2022 Creatinine [Mass/Vol] 1.73 mg/dL 0.55-1.02 [facility] Comment on above: The validity of the calculated GFR & GFRAA in patients over 70 years has not been determined. Clinical correlation is essential. Serum or plasma urea nitroge n measurement (mass/volume)Ordered By: Reese Shankar on 02-11-2022 Urea nitrogen [Mass/Vol] 32 mg/dL 7-18 [facility] Thin prep Papanicolaou smear with manual screeningOrdered By: Reese Shankar on 02-11-2022 Thin prep Papanicolaou smear with manual screening 10 5-15 [facility] CNPNon 10-14-2019 JAROD Telephone (AGCARDPOLulú ) LISAEZRA ([id number]) 1935 F Date Time Provider Department 10/14/19 RICKEY CHAVARRIA During your visit today, we recorded the [...] artery stent placement- 2006 [Z95*11/14/2015 Atherosclerosis of siletz tribe coronary artery of na*11/14/2015 Asymptomatic cholelithiasis [K80.20] [...] Status:Closed by ELVER ACOSTA on 10/14/19 [facility] Guido 10-12-2019 CNPTOUTREACH Patient Outreach ([facility]) EZRA GONZALEZ ([id number]) 1935 F Date Time Provider Department 10/12/19 SWATHI CRUZ (LEE) [facility] During your visit today, we recorded the following information about you: Swathi Cruz LPN, LPN 10/12/2019 10:48 AM Signed ED Follow Up: Patient discharged from [facility] ED on 10/11/2019 for Fall, rib fracture [...] Visit: Transition Of Care [4074] Cmt: ED [facility] 10/11/2019 (Pt. has new pcp) Reason For [...] artery stent placement- 2006 [Z95*11/14/2015 Atherosclerosis of s[place] tribe coronary artery of na*11/14/2015 Asymptomatic cholelithiasis [K80.20] [...] by SWATHI CRUZ LPN on 10/12/19 [facility] OBSOLETEon 10-12-2019 OBSOLETE Refill (AGMPC) LISAEZRA ([id number]) 1935 F Date Time Provider Department 10/12/19 JO PEREZ During your visit today, we [...] Visit date not found Patient Phone numbers: [phone] (home) Request is for script(s) to be [...] artery stent placement- 2006 [Z95*11/14/2015 Atherosclerosis of siletz tribe coronary artery of na*11/14/2015 Asymptomatic cholelithiasis [K80.20] [...] by LYNN BENEDICT LPN on 11/11/19 [facility] PROGRESSon 10-12-2019 PROGRESS HNO ID: [id number] Author: Swathi Cruz LPN Service: ? Author Type: LICENSED NURSE Type: Progress Notes Filed: 10/12/2019 10:48 AM Note Text: ED Follow Up: Patient discharged from [facility] ED on 10/11/2019 for Fall, rib fracture Outreach # 1, Contact Made. Patient was called at this time. Patient verified by name and . Patient stated she has a new PCP Dr. Sada Doran who she will follow up with. Swathi Cruz LPN 10/12/2019 10:45 AM [facility] CNPMari 10-06-2019 JAROD Telephone (AGINTMAC) EZRA GONZALEZ ([id number]) 1935 F Date Time Provider Department 10/06/19 [...] Date: 12/30/16 +++Patient gets lab draw at [facility] in [place] [phone]+++ PT INR Date Value Ref Range Status [...] (HCC) [I48.91] Order(s):PROTHROMBIN TIME/PT [SQPT] Order #: [id number] Prescriptions as of 10/06/2019 Sig: METOPROLOL SUCCINATE [...] artery stent placement- 2006 [Z95*11/14/2015 Atherosclerosis of sile[place] tribe coronary artery of na*11/14/2015 Asymptomatic cholelithiasis [K80.20] [...] Status:Closed by BHAKTI (PHARMACIST)ESTEFANIA on 10/06/19 [facility] Bao 09-22-2019 CNPN Telephone ([facility]) EZRA GONZALEZ ([id number]) 1935 F Date Time Provider Department 09/22/19 JO PEREZ [facility] During your visit today, we recorded the following information about you: Maryanne Gomez MA 09/22/2019 10:38 AM Signed Patient is aware that you are going to be leaving the practice. She states she recently moved down to [place] and wants to find a physician closer to her Is there anyone that you recommend Maryanne Gomez MA 09/22/2019 10:37 AM Jo Perez MD 09/22/2019 12:[address] barker at [facility] Alicia Park LPN 09/22/2019 1:21 PM Signed [...] Fully Assessed Reason for Visit: Patient Question [5164] Cmt: [facility] in [facility] Prescriptions as of 09/22/2019 Sig: METOPROLOL [...] artery stent placement- 2006 [Z95*11/14/2015 Atherosclerosis of siletz tribe coronary artery of na*11/14/2015 Asymptomatic cholelithiasis [K80.20] [...] Status:Closed by ALICIA PARK on 09/22/19 [facility] CNPTOUTREACHon 09-22-[facility] ([facility]) EZRA GONZALEZ ([id number]) 1935 F Date Time Provider Department 09/22/19 MARYANNE GOMEZ) [facility] During your visit today, we recorded the following information about you: Maryanne Gomez MA 09/22/2019 10:34 AM Signed HIGH RISK CHRONIC DISEASE MONITORING - [facility] Provider Action/FYI: Patient doing well Contact made with patient: Yes Hi my name is Maryanne Gomez MA and I am calling from the [facility] on behalf of your PCP. [...] like to speak with a social work retail sales teammate to help give you support for any [...] artery stent placement- 2006 [Z95*11/14/2015 Atherosclerosis of s[place] tribe coronary artery of na*11/14/2015 Asymptomatic cholelithiasis [K80.20] [...] Status:Closed by MARYANNE GOMEZ on 09/22/19 [facility] PROGRESSon 09-22-2019 PROGRESS HNO ID: [id number] Author: Maryanne Gomez Service: ? Author Type: Auriculotherapist Type: Progress Notes Filed: 09/22/2019 10:34 AM Note Text: HIGH RISK CHRONIC DISEASE MONITORING - [facility] Provider Action/FYI: Patient doing well Contact made with patient: Yes Hi my name is Maryanne Gomez MA and I am calling from the [facility] on behalf of your PCP. [...] like to speak with a social work retail sales teammate to help give you support for any [...] Maryanne Gomez MA 09/22/2019 10:33 AM Normal [facility] CNPTOUTREACHon 09-21-2019 [facility] Patient Outreach ([facility]) LISAEZRA ([id number]) 1935 F Date Time Provider Department 09/21/19 JO PEREZ [facility] During your visit today, we recorded the following information about you: Alicia Park LPN 09/21/2019 10:43 AM Signed HIGH RISK CHRONIC DISEASE MONITORING - [facility] Provider Action/FYI: Contact made with patient: No - Left 1st message - Hi my name is Alicia Park LPN and I am calling from the [facility] on behalf of your PCP, [...] artery stent placement- 2006 [Z95*11/14/2015 Atherosclerosis of sile[place] tribe coronary artery of na*11/14/2015 Asymptomatic cholelithiasis [K80.20] [...] Status:Closed by ALICIA PARK on 09/21/19 [facility] PROGRESSon 09-21-2019 PROGRESS HNO ID: [id number] Author: Alicia Bush) Vivian Service: ? Author Type: LICENSED NURSE Type: Progress Notes Filed: 09/21/2019 10:43 AM Note Text: HIGH RISK CHRONIC DISEASE MONITORING - [facility] Provider Action/FYI: Contact made with patient: No - Left 1st message - Hi my name is Alicia Park LPN and I am calling from the [facility] on behalf of your PCP, [...] Pt Outreach. End outreach.) Outreach ended [facility] CNPMari 09-02-2019 SUZIN Telephone ([place]) EZRA GONZALEZ ([id number]) 1935 F Date Time Provider Department 09/02/19 ESTEFANIA CEVALLOS During your visit today, we recorded the following information about you: Estefania Cevallos, PharmD 09/02/2019 11:16 AM Signed Please check [...] Date: 12/30/16 +++Patient gets lab draw at [facility] in [place] [phone]+++ PT INR Date Value Ref Range Status [...] Patient will have next INR drawn at [facility] in [place] next month. Order placed. Estefania Cevallos PharmD [...] (HCC) [I48.91] Order(s):PROTHROMBIN TIME/PT [SQPT] Order #: [id number] PROTHROMBIN TIME/PT [SQPT] Order #: [id number] STANDING Prescriptions as of 09/02/2019 Sig: METOPROLOL [...] artery stent placement- 2006 [Z95*11/14/2015 Atherosclerosis of sile[place] tribe coronary artery of na*11/14/2015 Asymptomatic cholelithiasis [K80.20] [...] Status:Closed by BHAKTI (PHARMACIST)ESTEFANIA on 09/03/19 [facility] CNPTOUTREACHon 08-12-2019 CNPTOUTREA Patient Outreach ([facility]MPC) EZRA GONZALEZ ([id number]) 1935 F Date Time Provider Department 08/12/19 MARYANNE GOMEZ) [facility] During your visit today, we recorded the following information about you: Maryanne Gomez MA 08/12/2019 9:39 AM Signed HIGH RISK CHRONIC DISEASE MONITORING - [facility] Provider Action/FYI: Left 2nd message, will add patient to schedule for a month Contact made with patient: No, Left 2nd message - Hi my name is Maryanne Gomez MA and I am calling from the [facility] on behalf of your PCP, Jo [...] artery stent placement- 2006 [Z95*11/14/2015 Atherosclerosis of sile[place] tribe coronary artery of na*11/14/2015 Asymptomatic cholelithiasis [K80.20] [...] Status:Closed by MARYANNE GOMEZ on 08/12/19 [facility] PROGRESSon 08-12-2019 PROGRESS HNO ID: [id number] Author: Maryanne Perea) Miguel Service: ? Author Type: Auriculotherapist Type: Progress Notes Filed: 08/12/2019 9:39 AM Note Text: HIGH RISK CHRONIC DISEASE MONITORING - [facility] Provider Action/FYI: Left 2nd message, will add patient to schedule for a month Contact made with patient: No, Left 2nd message - Hi my name is Maryanne Gomez MA and I am calling from the [facility] on behalf of your PCP, [...] ended Maryanne Gomez MA 08/12/2019 9:38 AM Normal [facility] CNPTOUTRDell 08-11-2019 [facility] Patient Outreach ([facility]) EZRA GONZALEZ ([id number]) 1935 F Date Time Provider Department 08/11/19 MARYANNE GOMEZ) [facility] During your visit today, we recorded the following information about you: Maryanne Gomez MA 08/11/2019 10:02 AM Signed HIGH RISK CHRONIC DISEASE MONITORING - [facility] Provider Action/FYI: Left message, will add to schedule for tomorrow Contact made with patient: No - Left 1st message - Hi my name is Maryanne Gomez MA and I am calling from the [facility] on behalf of your PCP, [...] artery stent placement- 2006 [Z95*11/14/2015 Atherosclerosis of siletz tribe coronary artery of na*11/14/2015 Asymptomatic cholelithiasis [K80.20] [...] Encounter Status:Closed by MARYANNE GOMEZ on 08/11/19 Normal [facility] PROGRESSon 08-11-2019 PROGRESS HNO ID: [id number] Author: Maryanne Gomez Service: ? Author Type: Auriculotherapist Type: Progress Notes Filed: 08/11/2019 10:02 AM Note Text: HIGH RISK CHRONIC DISEASE MONITORING - [facility] Provider Action/FYI: Left message, will add to schedule for tomorrow Contact made with patient: No - Left 1st message - Hi my name is Maryanne Gomez MA and I am calling from the [facility] on behalf of your PCP, [...] Maryanne Gomez MA 08/11/2019 10:01 AM Normal [facility] OBSOLETEon 08-05-2019 OBSOLETE Refill (AGCARDPOB) EZRA GONZALEZ ([id number]) 1935 F Date Time Provider Department 08/05/19 VALERIO MICHAEL A AGCARDPOB During your visit today, we recorded [...] artery stent placement- 2006 [Z95*11/14/2015 Atherosclerosis of siletz tribe coronary artery of na*11/14/2015 Asymptomatic cholelithiasis [K80.20] [...] Status:Closed by LYNETTE OROURKE on 08/05/19 [facility] CNPTOUTREACHon 08-04-2019 [facility] ([facility]) EZRA GONZALEZ ([id number]) 1935 F Date Time Provider Department 08/04/19 MARYANNE GOMEZ) [facility] During your visit today, we recorded the following information about you: Maryanne Gomez MA 08/04/2019 11:03 AM Signed HIGH RISK CHRONIC DISEASE MONITORING - [facility] Provider Action/FYI: Patient has no questions or concerns at this time Contact made with patient: Yes Hi my name is Maryanne Gomez MA and I am calling from the [facility] on behalf of your PCP. [...] like to speak with a social work retail sales teammate to help give you support for any [...] artery stent placement- 2006 [Z95*11/14/2015 Atherosclerosis of sile[place] tribe coronary artery of na*11/14/2015 Asymptomatic cholelithiasis [K80.20] [...] Status:Closed by MARYANNE GOMEZ on 08/04/19 Normal [facility] PROGRESSon 08-04-2019 PROGRESS HNO ID: [id number] Author: Maryanne Gomez Service: ? Author Type: Auriculotherapist Type: Progress Notes Filed: 08/04/2019 11:03 AM Note Text: HIGH RISK CHRONIC DISEASE MONITORING - [facility] Provider Action/FYI: Patient has no questions or concerns at this time Contact made with patient: Yes Hi my name is Maryanne Gomez MA and I am calling from the [facility] on behalf of your PCP. [...] like to speak with a social work retail sales teammate to help give you support for any [...] Maryanne Gomez MA 08/04/2019 11:03 AM Normal [facility] OBSOLETEon 08-03-2019 OBSOLETE Refill (AGCARDPOB) EZRA GONZALEZ ([id number]) 1935 F Date Time Provider Department 08/03/19 [...] artery stent placement- 2006 [Z95*11/14/2015 Atherosclerosis of sile[place] tribe coronary artery of na*11/14/2015 Asymptomatic cholelithiasis [K80.20] [...] by KATYA WELLS CNP on 08/03/19 [facility] CNPTOUTREACHon 07-28-2019 [facility] ([facility]) EZRA GONZALEZ ([id number]) 1935 F Date Time Provider Department 07/28/19 MARYANNE GOMEZ) [facility] During your visit today, we recorded the following information about you: Maryanne Gomez MA 07/28/2019 3:18 PM Signed HIGH RISK CHRONIC DISEASE MONITORING - [facility] Provider Action/FYI: Patient wants to know if [...] MA and I am calling from the [facility] on behalf of your PCP. [...] like to speak with a social work retail sales teammate to help give you support for any [...] Please report her afib episode to her parole officer (you can just route this chart to [...] use of insulin (HCC) [E11.9] Order(s):HGB A1C [JZUUY3V] Order #: [id number] FUTURE LIPID PANEL BASIC [SQLIPB] Order #: [id number] FUTURE COMP METABOLIC PANEL [SQCMP] Order #: [id number] FUTURE ALBUMIN QUANT 24H UR [SQUALBQ] Order #: [id number] FUTURE Prescriptions as of 07/28/2019 Sig: SIMVASTATIN [...] artery stent placement- 2006 [Z95*11/14/2015 Atherosclerosis of [place] coronary artery of na*11/14/2015 Asymptomatic cholelithiasis [K80.20] [...] Status:Closed by JO PEREZ on 07/28/19 [facility] OBSOLETEon 07-28-2019 OBSOLETE Refill (AGCARDHWG) EZRA GONZALEZ ([id number]) 1935 F Date Time Provider Department 07/28/19 [...] artery stent placement- 2006 [Z95*11/14/2015 Atherosclerosis of [place] coronary artery of na*11/14/2015 Asymptomatic cholelithiasis [K80.20] [...] by ARCELIA LOCKETT CNP on 07/28/19 [facility] PROGRESSon 07-28-2019 PROGRESS HNO ID: [id number] Author: Maryanne Gomez Service: ? Author Type: Auriculotherapist Type: Progress Notes Filed: 07/28/2019 3:18 PM [...] Maryanne Gomez MA 07/28/2019 3:05 PM [facility] PROGRESS HNO ID: [id number] Author: Jo Perez Service: ? Author Type: Physician Type: Progress Notes Filed: 07/28/2019 3:18 PM Note Text: Please report her afib episode to her parole officer (you can just route this chart to [...] labs done prior to her visit [facility] PROGRESS HNO ID: [id number] Author: Maryanne Gomez Service: ? Author Type: Auriculotherapist Type: Progress Notes Filed: 07/28/2019 3:18 PM Note Text: HIGH RISK CHRONIC DISEASE MONITORING - [facility] Provider Action/FYI: Patient wants to know if [...] MA and I am calling from the [facility] on behalf of your PCP. [...] like to speak with a social work retail sales teammate to help give you support for any [...] Maryanne Gomez MA 07/28/2019 2:21 PM Normal [facility] OBSOLETEon 07-14-2019 OBSOLETE Refill (AGMPC) EZRA GONZALEZ ([id number]) 1935 F Date Time Provider Department 07/14/19 [facility] During your visit today, we recorded the [...] Visit date not found Patient Phone numbers: [phone] (home) Request is for script(s) to be [...] artery stent placement- 2006 [Z95*11/14/2015 Atherosclerosis of [place] coronary artery of na*11/14/2015 Asymptomatic cholelithiasis [K80.20] [...] Status:Closed by JO PEREZ on 07/14/19 [facility] OBSOLETE Refill (AGCARDPOB) EZRA GONZALEZ ([id number]) 1935 F Date Time Provider Department 07/14/19 [...] artery stent placement- 2006 [Z95*11/14/2015 Atherosclerosis of [place] coronary artery of na*11/14/2015 Asymptomatic cholelithiasis [K80.20] [...] ordered this encounter Disp Refills Start End 2 MG TABLET 108 * 3 07/14/2019 Sig: take 1 tablet (2 mg) by mouth on friday, friday and friday. take 1 and 1/2 tablets (3 mg) on all other days Medications Discontinued During This Encounter MARTOVEN 2 mg tablet 108 * 1 01/21/2019 07/14/2019 Sig: TAKE 2 MG BY MOUTH ON FRIDAY, FRIDAY AND FRIDAY AND TAKE 3 MG ON ALL OTHER DAYS. Disc: Reason for discontinue is not on file. Encounter Status:Closed by RICKEY CHAVARRAI MD on 07/14/19 [facility] CNPN Telephone ([place]) EZRA GONZALEZ ([id number]) 1935 F Date Time Provider Department 07/12/19 [facility] During your visit today, we recorded the following information about you: Estefania Cevallos, Angela 07/12/2019 9:12 AM Signed Referred by Dr. [...] Date: 12/30/16 +++Patient gets lab draw at [facility] in [place] [phone]+++ PT INR Date Value Ref Range Status [...] (HCC) [I48.91] Order(s):PROTHROMBIN TIME/PT [SQPT] Order #: [id number] Prescriptions as of 07/12/2019 Sig: LISINOPRIL 5 [...] artery stent placement- 2006 [Z95*11/14/2015 Atherosclerosis of [place] coronary artery of na*11/14/2015 Asymptomatic cholelithiasis [K80.20] [...] Status:Closed by BHAKTI (PHARMACIST)ESTEFANIA on 07/12/19 [facility] OBSOLETEon 07-05-2019 OBSOLETE Refill (AGC) LISAEZRA ([id number]) 1935 F Date Time Provider Department 07/05/19 [...] Patient next appointment: 07/28/2019 Patient Phone numbers: [phone] (home) Request is for script(s) to be escript to pharmacy. MYRIAM Lovelace'Neill 07/13/2019 11:23 AM Signed Pharmacy called to say Ranitidine was recalled and Pepcid is on backorder. Asked what we want to do as an alternative. Spoke with Dr. Perez and she said Omeprazole 20 mg once a day. Asked the pharmacy to either call the office or the patient once Pepcid is no longer on backorder per Dr. Perez. Bernarda [place] 07/13/2019 11:23 AM Allergies As of Date: [...] artery stent placement- 2006 [Z95*11/14/2015 Atherosclerosis of [place] coronary artery of na*11/14/2015 Asymptomatic cholelithiasis [K80.20] [...] by PATITO WILSON CNP on 07/05/19 [facility] OBSOLETEon 07-01-2019 OBSOLETE Refill (AGC) EZRA GONZALEZ ([id number]) 1935 F Date Time Provider Department 07/01/19 JO PEREZAdeel During your visit today, we recorded the following information about you: Robert Diaz CMA 07/01/2019 9:20 AM Signed Patient called requesting the following refill. Pending Prescriptions Disp Refills RANITIDINE 150 MG TABLET 90 tablet 0 Sig: Take 1 tablet by mouth once daily. SHAHEEN: No Last refill: 03/18/2019 Patient last appointment: 06/10/2019 Patient next appointment: 07/28/2019 Patient Phone numbers: [phone] (home) Request is for script(s) to be [...] artery stent placement- 2006 [Z95*11/14/2015 Atherosclerosis of [place] coronary artery of na*11/14/2015 Asymptomatic cholelithiasis [K80.20] [...] Status:Closed by JO PEREZ on 07/01/19 [facility] Bao 06-10-2019 CNPN Telephone [facility] EZRA GONZALEZ ([id number]) 1935 F Date Time Provider Department 06/10/19 [facility] your visit today, we recorded the [...] artery stent placement- 2006 [Z95*11/14/2015 Atherosclerosis of [place] tribe coronary artery of na*11/14/2015 Asymptomatic cholelithiasis [K80.20] [...] by SWATHI CRUZ LPN on 06/10/19 [facility] 06-07-2019 CNPN Telephone (AGINTMAC) EZRA GONZALEZ ([id number]) 1935 F Date Time Provider Department 06/07/19 [...] Date: 12/30/16 +++Patient gets lab draw at [facility] in [place] [phone]+++ PT INR Date Value Ref Range Status [...] (HCC) [I48.91] Order(s):PROTHROMBIN TIME/PT [SQPT] Order #: [id number] Prescriptions as of 06/07/2019 Sig: COQ-10 ORAL [...] artery stent placement- 2006 [Z95*11/14/2015 Atherosclerosis of [place] tribe coronary artery of na*11/14/2015 Asymptomatic cholelithiasis [K80.20] [...] Status:Closed by BHAKTI (PHARMACIST)ESTEFANIA on 06/07/19 [facility] 06-04-2019 CNPN Telephone ([place]) EZRA GONZALEZ ([id number]) 1935 F Date Time Provider Department 06/04/19 [...] artery stent placement- 2006 [Z95*11/14/2015 Atherosclerosis of [place] tribe coronary artery of na*11/14/2015 Asymptomatic cholelithiasis [K80.20] [...] Status:Closed by BHAKTI (PHARMACIST)ESTEFANIA on 06/04/19 [facility] 05-13-2019 CNOV Office Visit (AGHWW1 ) EZRA GONZALEZ ([id number]) 1935 F Date Time Provider Department 05/13/19 4:00 PM CRUZ SANCHEZ AGHWW1 During your visit today, we recorded the following information about you: Respiration Weight Height 18/minute 82.6 kg 1.613 m Cruz Sanchez MD 05/13/2019 5:00 PM Signed HISTORY OF PRESENT ILLNESS: Ezra Gonzalez is an 83-year-old iywlo-pacv-atnqvvrs female who returns for follow-up right shoulder [...] associated with diabetes mellitus (HCC) - [place] (myocardial infarction) 2006 - On anticoagulant therapy [...] ABLATION 2012 - TOTAL HIP REPLACEMENT Left 2009 - [...] R Shoulder CARDIOVASCULAR: Peripheral venous insufficiency, h/o [place], HTN, Coronary Arteriosclerosis, A-Fib, Cardiac Ablation MSK: [...] [Z98.890] Order(s):Large Joint Arthro/Inj: R subacromial bursa [NDU595] Order #: [id number] betamethasone acetate-betamethasone sodium phosphate 12 mg injection [...] artery stent placement- 2006 [Z95*11/14/2015 Atherosclerosis of s[place] tribe coronary artery of na*11/14/2015 Asymptomatic cholelithiasis [K80.20] [...] by CRUZ SANCHEZ MD on 05/13/19 [facility] PROGRESSon 05-13-2019 PROGRESS HNO ID: [id number] Author: Cruz Sanchez Service: ? Author Type: Physician Type: Progress Notes Filed: 05/13/2019 5:00 PM Note Text: HISTORY OF PRESENT ILLNESS: Ezra Gonzalez is an 83-year-old uieii-ujlr-dxefasmk female who returns for follow-up right shoulder [...] associated with diabetes mellitus (HCC) - [place] (myocardial infarction) 2006 - On anticoagulant therapy [...] R Shoulder CARDIOVASCULAR: Peripheral venous insufficiency, h/o [place], HTN, Coronary Arteriosclerosis, A-Fib, Cardiac Ablation MSK: [...] follow-up as needed. Cruz Sanchez MD [facility] CNOVon 04-27-2019 CN Office Visit (AGC) EZRA GONZALEZ ([id number]) 1935 F Date Time Provider Department 04/27/19 [...] coronary artery stent placement- 2006 Atherosclerosis of [place] Coronary Artery of [place] Heart Without Angina Pectoris Asymptomatic Cholelithiasis History [...] Patito Gonzalez Podiatry 05/19/2015 End 05/19/15 Nirmal Bogdan Justo MARINE ENGINEERING TEACHER 07/07/2017 End 07/07/17 ; Mohan Álvarez Ophthalmology 07/07/2017 End 07/07/17 Rickey Duffy [facility] Cardiology 09/30/2018 End 09/30/18 ; End of Live Planning discussed including patients advanced directive wishes: Yes I am willing to follow advanced directives. 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 If you were a onum-pxe-zaotxdfm eater, focus on the meat more than [...] your kitchen up for success. Always have gjt-rmox-thwdkznk foods on hand ready to eat. Remove [...] unspecified type [R19.7] Order(s):ADMIN OF INFLUENZA VACCINE [[id number]] Order #: [id number]: 1 INFLUENZA SEASONAL HIGH DOSE AGE 65+ [05360ALZ] Order #: [id number] metFORMIN (GLUCOPHAGE) 500 mg tabletTake 1 tablet by mouth daily with breakfast.Disp: Rfl: HGB A1C [WGYTP0L] Order #: [id number] FUTURE COMP METABOLIC PANEL [SQCMP] Order #: [id number] FUTURE Prescriptions as of 04/27/2019 Sig: COQ-10 [...] artery stent placement- 2006 [Z95*11/14/2015 Atherosclerosis of s[place] tribe coronary artery of na*11/14/2015 Asymptomatic cholelithiasis [K80.20] [...] prepared fairly simply. If you were a vylc-yer-pnrnpjhc eater, focus on the meat more than [...] your kitchen up for success. Always have wqq-ldfy-hqybknwd foods on hand ready to eat. Remove [...] Status:Closed by JO PEREZ on 04/27/19 [facility] PROGRESSon 04-27-2019 PROGRESS HNO ID: [id number] Author: Jo Perez Service: ? Author Type: [...] coronary artery stent placement- 2006 Atherosclerosis of [place] Coronary Artery of [place] Heart Without Angina Pectoris Asymptomatic Cholelithiasis History [...] ; Patito Gonzalez Podiatry 05/19/2015 End 05/19/15 iNrmal Kemp MARINE ENGINEERING TEACHER 07/07/2017 End 07/07/17 ; Mohan Álvarez Ophthalmology 07/07/2017 End 07/07/17 Rickey Chavarria Cardiology 09/30/2018 End 09/30/18 ; End of Live Planning discussed including patients advanced directive wishes: Yes I am willing to follow advanced directives. Mini-Cog Patient asked to remember the following three words: Banana, [place] and Chair Visuospatial/Executiv e Functioning: Clock drawin/2 (Normal clock with all number in correct sequence and position, hands are correct = 2 points, inability or refusal to draw a clock = 0) Three word recall: 3 Total score: 5/5 (Total score = word [...] No history of dysuria, frequency or incontinence WASTEWATER TREATMENT PLANT OPERATOR: Negative for abnormal vaginal bleeding, abnormal vaginal [...] with supplements or by diet (goal of 2886-5513 mg/day - Discussed need and benefit for [...] - Discussed diabetic education issues of terminal worker diabetic complications, hypoglycemic symptoms, hyperglycemic symptoms, diet, [...] screening - Lipid panel [facility] Office Visit (AGHWW1 ) EZRA GONZALEZ ([id number]) 1935 F Date Time Provider Department 03/18/19 4:00 PM CRUZ SANCHEZ AGHWW1 During your visit today, we recorded the following information about you: Respiration Weight Height 17/minute 80.7 kg 1.651 m Cruz Sanchez MD 03/18/2019 7:00 PM Signed HISTORY OF PRESENT ILLNESS: Ezra Gonzalez is an 83-year-old mrggo-qvol-rlwauwvf female who returns for follow-up right shoulder [...] and strength with continued physical therapy in [place]. She is currently using the yellow to [...] associated with diabetes mellitus (HCC) - [place] (myocardial infarction) 2006 - On anticoagulant therapy [...] artery stent placement- 2006 [Z95*11/14/2015 Atherosclerosis of [place] tribe coronary artery of na*11/14/2015 Asymptomatic cholelithiasis [K80.20] [...] by CRUZ SANCHEZ MD on 03/18/19 [facility] PROGRESSon 03-18-2019 PROGRESS HNO ID: [id number] Author: Cruz Sanchez Service: ? Author Type: Physician Type: Progress Notes Filed: 03/18/2019 7:00 PM Note Text: HISTORY OF PRESENT ILLNESS: Ezra Gonzalez is an 83-year-old fuzge-nkdj-jbuztcde female who returns for follow-up right shoulder [...] and strength with continued physical therapy in [place]. She is currently using the yellow to [...] associated with diabetes mellitus (HCC) - [place] (myocardial infarction) 2006 - On anticoagulant therapy [...] follow-up as needed. Cruz Sanchez MD [facility] OBSOLETEon 03-17-2019 OBSOLETE Refill ([facility]) EZRA GONZALEZ ([id number]) 1935 F Date Time Provider Department 03/17/19 VIPUL BUCHANAN ([facility]) [facility] During your visit today, we recorded the following information about you: Anne Marie Hobbs Reg 03/18/2019 7:40 AM Signed Pharmacy faxed requesting the following refill. Pending Prescriptions Disp Refills LISINOPRIL 5 MG TABLET 90 tablet 0 Sig: TAKE ONE TABLET BY MOUTH once DAILY SHAHEEN: Yes Last refill: 10/09/2018 Patient last appointment: 09/30/2018 Patient next appointment: Visit date not found Patient Phone numbers: [phone] (home) Request is for script(s) to be [...] artery stent placement- 2006 [Z95*11/14/2015 Atherosclerosis of s[place] tribe coronary artery of na*11/14/2015 Asymptomatic cholelithiasis [K80.20] [...] Status:Closed by JO PEREZ on 03/18/19 [facility]LETE [facility] EZRA GONZALEZ ([id number]) 1935 F Date Time Provider Department 03/17/19 JO PEREZ [facility] During your visit today, we recorded the following information about you: Anne Marie Hobbs Reg 03/18/2019 7:41 AM Signed Pharmacy faxed requesting the following refill. Pending Prescriptions Disp Refills RANITIDINE 150 MG TABLET 90 tablet 0 Sig: TAKE ONE TABLET BY MOUTH EVERY DAY SHAHEEN: Yes Last refill: 12/16/2018 Patient last appointment: 09/30/2018 Patient next appointment: 04/02/2019 Patient Phone numbers: [phone] (home) Request is for script(s) to be [...] artery stent placement- 2006 [Z95*11/14/2015 Atherosclerosis of [place] coronary artery of na*11/14/2015 Asymptomatic cholelithiasis [K80.20] [...] Encounter Status:Closed by JO PEREZ on 03/18/19 [facility] Office Visit (AGHWW1 ) EZRA GONZALEZ ([id number]) 1935 F Date Time Provider Department 02/04/19 1:30 PM [facility] During your visit today, we recorded the following information about you: Respiration Weight Height 17/minute 80.7 kg 1.676 m Cruz Sanchez MD 02/04/2019 4:40 PM Signed HISTORY OF PRESENT ILLNESS: Ezra Gonzalez was provided orthopedic evaluation regarding right shoulder complaints. 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 - Osteoarthritis - Peripheral venous [...] conditions CARDIOVASCULAR: A-Fib, Coronary Arteriosclerosis, HTN, [place], Peripheral Venous Inufficiency, MSK: Degenerative Joint Disease, [...] GENERAL 3V OR MORE AP/TRUE AP/OTHER RT [7100032] Order #: [id number] CONSULT TO PHYSICAL THERAPY (AG) [5453025] Order #: [id number]: 1 DRAIN/INJECT LARGE JOINT/BURSA [05610DIJ] Order #: [id number] [] betamethasone acetate-betamethasone sodium phosphate 12 mg [...] stent placement- 2006 [Z95*INVALID FOR* Atherosclerosis of [place] coronary artery of na*INVALID FOR* Asymptomatic cholelithiasis [...] by CRUZ SANCHEZ MD on 02/04/19 [facility] PROGRESSon 02-04-2019 PROGRESS HNO ID: [id number] Author: Cruz Sanchez Service: ? Author Type: Physician Type: Progress Notes Filed: 02/04/2019 4:40 PM Note Text: HISTORY OF PRESENT ILLNESS: Ezra Gonzalez was provided orthopedic evaluation regarding right shoulder complaints. 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 Cruz Sanchez MD [facility] OBSOLETEon 01-21-2019 OBSOLETE Refill (AGCARDPOB) EZRA GONZALEZ ([id number]) 1935 F Date Time Provider Department 01/21/19 [...] Myalgias Date Reviewed: 11/27/2018 Reviewed by: Vika CastroDepartment [facility]ines[facility] Torres - Fully Assessed Reason for Visit: [...] stent placement- 2006 [Z95*INVALID FOR* Atherosclerosis of [place] coronary artery of na*INVALID FOR* Asymptomatic cholelithiasis [...] by RICKEY CHAVARRIA MD on 01/21/19 [facility] OBSOLETE Refill (MPC) EZRA GONZALEZ ([id number]) 1935 F Date Time Provider Department 01/21/19 JO PEREZ [facility] During your visit today, we recorded the following information about you: Anne Marie Hobbs Reg 01/21/2019 12:05 PM Signed Pharmacy faxed requesting the following refill. Pending Prescriptions Disp Refills FUROSEMIDE 20 MG TABLET 90 tablet 2 Sig: TAKE ONE TABLET BY MOUTH ONCE DAILY SHAHEEN: Yes Last refill: 01/05/2018 Patient last appointment: 09/30/2018 Patient next appointment: 04/02/2019 Patient Phone numbers: [phone] (home) Request is for script(s) to be [...] Myalgias Date Reviewed: 11/27/2018 Reviewed by: Vika ([facility]) Brian - Fully Assessed Reason for Visit: [...] stent placement- 2006 [Z95*INVALID FOR* Atherosclerosis of [place] coronary artery of na*INVALID FOR* Asymptomatic cholelithiasis [...] Status:Closed by JO PEREZ on 01/21/19 [facility] CNTHERAPYon 12-14-2018 CNTHERAPY OT[facility] LISAEZRA ([id number]) 1935 F Date Time Provider Department 12/14/18 11:00 AM ANOOP COLLAZO (JAZMYN) [facility] Date Time Provider Department Center 12/14/2018 11:00 AM [id number]-NOKAALNANOOP COLLAZO*[facility] LONG Reason for Visit: Difficulty In Hearing [...] Myalgias Date Reviewed: 11/27/2018 Reviewed by: Vika CastroDepartment Of [facility]Finesse Torres - Fully Assessed Prescriptions as of [...] Jazmyn Hinson, JAZMYN 12/14/2018 4:44 PM Signed [facility] OUTPATIENT AUDIOLOGY SERVICES AUDIOLOGIC EVALUATION REPORT 12/14/2018 Page 1 of 3 Patient: Ezra Gonzalez : 1935 Referred by: Jo Perez (PCP: Yazmin) Referred for: Evaluation of suspected change in hearing, tinnitus, or balance. Referral documented: In an order in Epic: OTHER ORDERS: : CONSULT TO AUDIOLOGY FOR DIAGNOSTIC TESTING [9003] (Order [id number]) Patient's major complaints: Progressively increasing difficulty in [...] --Pure tone audiometry using insert earphones demonstrates jfvg-vp-ubctafgnqu severe level sensorineural type hearing loss, worse [...] up w/ referring physician. Report routed via Yub inbox to Dr. Perez on 12/14/2018 -Re-evaluation [...] Audiogram can be also be viewed in bubl SmartForms:Audiology: Audiometry. OAE and tympanometry results can be viewed in bubl Scanned Documents. RIGHT EAR Hearing Sensitivity: 250-500HZ: WNL; 750-2000Hz:mild; 3000-8000Hz: moderate-severe SNHL Word Recognition Score (order by difficulty 10 word list): Excellent (90%) at slt amplified loudness (fair at conversational loudness) Tympanometry: Type A : Normal ME function. Otoacoustic Emissions results: 750-3000Hz: WNL; 7379-7358: reduced; 8000Hz: absent. LEFT EAR Hearing Sensitivity: 250-500HZ: WNL; 750-3000Hz: moderate; 6000-8000Hz: severe SNHL Word Recognition Score (order by difficulty 10 word list): Excellent (90%) at amplified loudness (poor at conversational loudness) Tympanometry: Type A : Normal ME function. Otoacoustic Emissions results: 750-1000Hz: absent; 9926-4919: reduced; 6000-8000Hz: absent. William Hinson. Warehouse Order Filler 12/14/2018 3:30 PM Ezra Gonzalez : 1935 [...] during this visit: Audiometry Letter Text Normal [facility] OBSOLETEon 12-14-2018 OBSOLETE Refill ([facility]) EZRA GONZALEZ ([id number]) 1935 F Date Time Provider Department 12/14/18 JO PEREZ [facility] During your visit today, we recorded the following information about you: Robert Diaz CMA 12/16/2018 1:00 PM Signed Patient called requesting the following refill. Pending Prescriptions Disp Refills RANITIDINE 150 MG TABLET 90 tablet 0 Sig: TAKE ONE TABLET BY MOUTH EVERY DAY SHAHEEN: Yes Last refill: 09/16/2018 Patient last appointment: 10/20/2018 Patient next appointment: 04/02/2019 Patient Phone numbers: [phone] (home) Request is for script(s) to be [...] Myalgias Date Reviewed: 11/27/2018 Reviewed by: Vika CastroDepartment Of [facility]) Brian - Fully Assessed Reason for Visit: [...] stent placement- 2006 [Z95*INVALID FOR* Atherosclerosis of [place] coronary artery of na*INVALID FOR* Asymptomatic cholelithiasis [...] Status:Closed by JO PEREZ on 12/16/18 [facility] PROGRESSon 12-14-2018 PROGRESS HNO ID: [id number] Author: Anoop (Jazmyn) JAZMYN Coll[place] Service: ? Author Type: Warehouse Order Filler Type: Progress Notes Filed: 12/14/2018 4:44 PM Note Text: [facility] OUTPATIENT AUDIOLOGY SERVICES AUDIOLOGIC EVALUATION REPORT 12/14/2018 Page 1 of 3 Patient: Ezra Snell Lisa : 1935 Referred by: Jo Perez (PCP: Yazmin) Referred for: Evaluation of suspected change in hearing, tinnitus, or balance. Referral documented: In an order in [facility]: OTHER ORDERS: : CONSULT TO AUDIOLOGY FOR DIAGNOSTIC TESTING [9005] (Order [id number]) Patient's major complaints: Progressively increasing difficulty in [...] --Pure tone audiometry using insert earphones demonstrates htum-ag-xcgeirhouc severe level sensorineural type hearing loss, worse [...] up w/ referring physician. Report routed via Yub inbox to Dr. Perez on 12/14/2018 -Re-evaluation [...] Audiogram can be also be viewed in [employer] Smart[employer]:Audiology: Audiometry. OAE and tympanometry results can be viewed in [facility] Scanned Documents. RIGHT EAR Hearing Sensitivity: 250-500HZ: WNL; 750-2000Hz:mild; 3000-8000Hz: moderate-severe SNHL Word Recognition Score (order by difficulty 10 word list): Excellent (90%) at slt amplified loudness (fair at conversational loudness) Tympanometry: Type A : Normal ME function. Otoacoustic Emissions results: 750-3000Hz: WNL; 1619-8932: reduced; 8000Hz: absent. LEFT EAR Hearing Sensitivity: 250-500HZ: WNL; 750-3000Hz: moderate; 6000-8000Hz: severe SNHL Word Recognition Score (order by difficulty 10 word list): Excellent (90%) at amplified loudness (poor at conversational loudness) Tympanometry: Type A : Normal ME function. Otoacoustic Emissions results: 750-1000Hz: absent; 3314-7124: reduced; 6000-8000Hz: absent. William Hinson. Warehouse Order Filler 12/14/2018 3:30 PM Ezra Gonzalez : 1935 Page 3 of 3 GARCÍA Abbreviation Definition Degree of hearing sensitivity dB range WNL within normal limits WNL 0 - 20 SNHL sensorineural hearing loss Mild 20-40 CHL conductive hearing loss Moderate 40-55 MHL mixed hearing loss Moderately-Severe 55-70 ME middle ear Severe 70-90 OAE Distortion Product Otoacoustic Emissions Profound 90 + TM tympanic membrane Normal [facility] CNOVon 11-27-2018 CNOV Office Visit (AGCARDHWW) EZRA GONZALEZ ([id number]) 1935 F Date Time Provider Department 11/27/18 11:00 AM RICKEY CHAVARRIA AGCARDHWW During your visit today, we recorded the following information about you: Pulse Respiration Blood pressure Weight 66/minute 18/minute 124/70 80.7 kg Height 1.575 m Vika Torres CMA 11/27/2018 11:00 AM Signed Patient has no cardiac complaints today. Vika Chavarria MD 11/27/2018 11:24 AM Signed PRIMARY CARE PHYSICIAN: Jo Perez MD [address] [facility] [address] [place] [address] HISTORY OF PRESENT ILLNESS: Ms. Gonzalez is [...] again. 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 Ezra [...] of the time was spent in direct, tsto-wp-hiaa, contact with the patient for management and counseling. 1. Essential hypertension - ICD9: 401.9, ICD10: I10 (primary diagnosis) 2. Obesity, Class I, BMI 30-34.9 - ICD9: 278.00, ICD10: E66.9 3. Mixed hyperlipidemia - ICD9: 272.2, ICD10: E78.2 4. Paroxysmal atrial fibrillation (HCC) - ICD9: 427.31, ICD10: I48.0 5. Chronic anticoagulation - ICD9: V58.61, ICD10: Z79.01 Rickey Chavarria M.D. [facility] Referring Provider: SELF [200] Allergies As of Date: 11/27/2018 Noted Allergy Reaction CODEINE 03/20/2015 16 - Unknown CRESTOR (ROSUVASTATIN) 03/20/2015 14 - Other: See Comments Comments: Myalgias DEMEROL (MEPERIDINE) 03/20/2015 8 - GI Upset LATEX 03/20/2015 2 - Rash LIPITOR (ATORVASTATIN) 03/20/2015 14 - Other: See Comments Comments: Myalgias Date Reviewed: 11/27/2018 [facility] Brian - Fully Assessed Reason for Visit: CARD Follow Up Annual [1232] Primary Visit Diagnosis:Essential hypertension [I10] Other Visit Diagnoses:Obesity, Class I, BMI 30-34.9 [E66.9] Mixed hyperlipidemia [E78.2] Paroxysmal atrial fibrillation (HCC) [I48.0] Chronic anticoagulation [Z79.01] Order(s):ECG B/O W INTERP (MED OFFICE) [ECG06] Order #: [id number] Prescriptions as of 11/27/2018 Sig: SIMVASTATIN 20 [...] stent placement- 2006 [Z95*INVALID FOR* Atherosclerosis of siletz tribe coronary artery of na*INVALID FOR* Asymptomatic cholelithiasis [...] has no cardiac complaints today. Vika Torres [facility] Disposition: Return in about 1 year (around 11/28/2019). Follow-up and Disposition History Recorded Letter Text Encounter Status:Closed by RICKEY CHAVARRIA MD on 11/27/18 [facility] PROGRESSon 11-27-2018 PROGRESS HNO ID: [id number] Author: Rickey Chavarria Service: ? Author Type: Physician Type: Progress Notes Filed: 11/27/2018 11:24 AM Note Text: PRIMARY CARE PHYSICIAN: Jo Perez MD [address] [facility] [address] [place] [address] HISTORY OF PRESENT ILLNESS: Ms. Gonzalez is [...] again. 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 Ezra [...] of the time was spent in direct, qsrw-ol-svcu, contact with the patient for management and counseling. 1. Essential hypertension - ICD9: 401.9, ICD10: I10 (primary diagnosis) 2. Obesity, Class I, BMI 30-34.9 - ICD9: 278.00, ICD10: E66.9 3. Mixed hyperlipidemia - ICD9: 272.2, ICD10: E78.2 4. Paroxysmal atrial fibrillation (HCC) - ICD9: 427.31, ICD10: I48.0 5. Chronic anticoagulation - ICD9: V58.61, ICD10: Z79.01 Rickey Chavarria M.D. [facility] Normal [facility] BONE DENSITY STUDY BY XRAY 7 7080on 07-15-2017 BONE DENSITY STUDY BY XRAY [id number] Performed at [facility] APPROVED BY: Kemar Adams MD EXAMINATION: BONE MINERAL DENSITOMETRY (DEXA SCAN) EXAM DATE: 07/15/2017 09:43 CLINICAL INDICATION: 82-year-old postmenopausal female , follow-up osteoporosis screening. COMPARISON: DEXA scan 10/06/2013. DXA [email or web address] v.13.4 examination is performed on the lumbar [...] is a trademark of the [employer]'s [facility] Disease, a WHO Collaborating [place]. This applies to men over 50 and [...] high risk for accelerated bone loss). Normal [facility] MAMMOGRAM SCREENING WITH CAD IF PERFORMEDon 06-27-2017 MAMMOGRAM SCREENING WITH CAD IF PERFORMED Performed at [facility] APPROVED BY: Lucas Garrido MD #[id number] - MAMMOGRAM SCREENING WITH CAD IF PERFORMEDBILATERAL DIGITAL SCREENING MAMMOGRAM WITH CAD WITH MEDIOLATERAL OBLIQUE CRANIOCAUDAL: 06/27/2017CLINICAL: Routine screening mammogram. Patient reports no breast problems. Comparison is made to exams dated: 07/22/2016 mammogram - [facility], 06/26/2016 mammogram, 06/09/2015 mammogram, and 04/01/2014 mammogram - [facility]. There are scattered fibroglandular elements in [...] notified of the results. Lucas myers/penrad:06/27/2017 11:38:04 [employer] Caretaker: Loan Summers)([facility]: [facility]ad [facility] or 2 Mammogram BI-RADS: 1 Negative Normal [facility] Otheron 02-03-2015 CONVERTED CLINICAL HISTORY OPERATIVE PROCEDURE: Colonoscopy CLINICAL INFORMATION: Screening [facility] CONVERTED ELECTRONIC SIGNATURE MO PATRICK M.D., PATHOLOGIST (Electronic signature on file) Final Signed Out: 02/03/2015 12:44 [facility] CONVERTED FINAL DIAGNOSIS FINAL DIAGNOSI S: A) COLON, ASCENDING, BIOPSIES - FRAGMENTS OF TUBULAR ADENOMA. B) COLON, RANDOM BIOPSIES - NO PATHOLOGIC ABNORMALITIES. [facility] CONVERTED GROSS DESCRIPTION GROSS DESCRIPTION: A) Ascending [...] totally submitted in cassette B x 3. SMS:[facility] CONVERTED ORDERING PROVIDER Ordering Provider: SHI LESTER [facility] Otheron 04-19-2010 CONVERTED ELECTRONIC SIGNATURE RAVINDER HAN M.D., PATHOLOGIST (Electronic signature on file) Final Signed Out: 04/19/2010 14:33 [facility] CONVERTED FINAL DIAGNOSIS FINAL DIAGNOSI S: RIGHT SHOULDER, EXCISION - BONE AND ATTACHED CARTILAGE WITH DEGENERATIVE CHANGES. SYNOVIUM WITH NONSPECIFIC REACTIVE CHANGES AND FOCAL MILD CHRONIC INFLAMMATION. SPECIMEN: SHOULDER [facility] CONVERTED GROSS DESCRIPTION GROSS DESCRIPTION: Rt shoulder tissue The container is labeled right shoulder tissue. Received are portions of pink-montague soft tissue and red-montague bone measuring 3 x 3 x 1 cm in aggregate. Sample of soft tissue is submitted in cassette 1, sample of bone is submitted in cassette 2 following decal. SMS/lrs MICROSCOPIC DESCRIPTION: Slides reviewed. 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 SPECIMEN: FEMORAL HEAD [facility] CONVERTED GROSS DESCRIPTION GROSS DESCRIPTION: Left femoral [...] decal. SMS:ATP:hlm MICROSCOPIC DESCRIPTION: Slides reviewed. SDS/gpl [facility] CONVERTED ORDERING PROVIDER Ordering Provider: CLOTILDE DOSS [facility] Thyroidon 08-02-2009 TSH Qn KVNG TYLER M.D., PATHOLOGIST (Electronic signature on file) Final Signed Out: 08/02/2009 14:47 [facility] Cardiacon 05-11-2001 Cholesterol [Mass/Vol] Ordering Provider : SAE FLANAGAN [facility] Otheron 05-11-2001 CONVERTED ELECTRONIC SIGNATURE MICHAEL HAWTHORNE M.D., PATHOLOGIST (Electronic signature on file) Final Signed Out: 05/11/2001 11:39 [facility] CONVERTED FINAL DIAGNOSIS TISSUE, REMOVE D AT RELEASE OF RIGHT RING FINGER - FIBROCOLLAGENOUS TISSUE WITH FOCAL FIBROBLASTIC REACTION AND FOCAL MIXOID CHANGE. ATTACHED SMALL AMOUNT OF TISSUE CONSISTENT WITH SYNOVIUM. [facility] Vital Signs Date Time Vital Sign Value Performing Clinician Facility 09-13-2024 14:00-0400 Body height 160.[address] Alexandra Hagen MD Work Phone: [facility] 09-13-2024 14:00-0400 Body mass index (BMI) [Ratio] 30.7 kg/m2 Dr. Alexandra Hagen MD Work Phone: [facility] 09-13-2024 14:00-0400 Body temperature 92.6 [degF] Dr. Alexandra Hagen MD Work Phone: 2(904)934-044531 [address] 09-13-2024 14:00-0400 Body weight 78.[address] Alexandra Hagen MD Work Phone: 9(968)341-506802 [place] [address] 09-13-2024 14:00-0400 Diastolic blood pressure 79 mm[Hg] Dr. Alexandra Hagen MD Work Phone: 9(609)800-956802 [place] [address] 09-13-2024 14:00-0400 Heart rate 83 /min Dr. Alexandra Hagen MD Work Phone: 4(806)624-142431 [address] 09-13-2024 14:00-0400 Respiratory rate 17 /min Dr. Alexandra Hagen MD Work Phone: [facility] 09-13-2024 14:00-0400 SaO2% (BldA) [Mass fraction] 97 % Dr. Alexandra Hagen MD Work Phone: [facility] 09-13-2024 14:00-0400 Systolic blood pressure 126 mm[Hg] Dr. Alexandra Hagen MD Work Phone: [facility] 09-11-2024 13:55-0400 Body mass index (BMI) [Ratio] 30.3 kg/m2 Dr. Alexandra Hagen MD Work Phone: [facility] 09-11-2024 09:09-0400 Body temperature 97.8 [degF] Dr. Alexandra Hagen MD Work Phone: [facility] 09-11-2024 09:09-0400 Diastolic blood pressure 85 mm[Hg] Dr. Alexandra Hagen MD Work Phone: [facility] 09-11-2024 09:09-0400 Heart rate 84 /min Dr. Alexandra Hagen MD Work Phone: [facility] 09-11-2024 09:09-0400 Respiratory rate 18 /min Dr. Alexandra Hagen MD Work Phone: [facility] 09-11-2024 09:09-0400 SaO2% (BldA) [Mass fraction] 98 % Dr. Alexandra Hagen MD Work Phone: 7(326)049-958102 [place] [address] 09-11-2024 09:09-0400 Systolic blood pressure 174 mm[Hg] Dr. Alexandra Hagen MD Work Phone: 9(465)534-849231 [address] 09-10-2024 17:17-0400 Body height 160.[address] Alexandra Hagen MD Work Phone: 0(053)314-098602 [place] [address] 09-10-2024 17:17-0400 Body weight 77.[address] Alexandra Hagen MD Work Phone: 7(943)179-331631 [address] 09-10-2024 16:30-0400 Diastolic blood pressure 73 mm[Hg] Dr. Alexnadra Hagen MD Work Phone: [facility] 09-10-2024 16:30-0400 Heart rate 79 /min Dr. Alexandra Hagen MD Work Phone: 9(062)320-265402 [place] [address] 09-10-2024 16:30-0400 Respiratory rate 20 /min Dr. Alexandra Hagen MD Work Phone: [facility] 09-10-2024 16:30-0400 SaO2% (BldA) [Mass fraction] 93 % Dr. Alexandra Hagen MD Work Phone: [facility] 09-10-2024 16:30-0400 Systolic blood pressure 118 mm[Hg] Dr. Alexandra Hagen MD Work Phone: [facility] 09-10-2024 16:07-0400 Body temperature 98.3 [degF] Dr. Alexandra Hagen MD Work Phone: 7(757)904-593044 [place] [address] 09-10-2024 14:19-0400 Body height 160.[address] Alexandra Hagen MD Work Phone: 3(041)197-852044 [place] [address] 09-10-2024 14:19-0400 Body mass index (BMI) [Ratio] 26.5 kg/m2 Dr. Alexandra Hagen MD Work Phone: 9(708)842-618444 [place] [address] 09-10-2024 14:19-0400 Body weight 68.[address] Alexandra Hagen MD Work Phone: 3(292)619-970944 [place] [address] 09-08-2024 15:30-0400 Heart rate 64 /min Dr. Alexandra Hagen MD Work Phone: 7(526)326-177444 [place] [address] 09-08-2024 15:30-0400 Respiratory rate 23 /min Dr. Alexandra Hagen MD Work Phone: 5(208)730-449344 [place] [address] 09-08-2024 15:30-0400 SaO2% (BldA) [Mass fraction] 97 % Dr. Alexandra Hagen MD Work Phone: 4(679)571-893044 [place] [address] 09-08-2024 12:22-0400 Body height 160.[address] Alexandra Hagen MD Work Phone: 9(789)610-251744 [place] [address] 09-08-2024 12:22-0400 Body mass index (BMI) [Ratio] 33.5 kg/m2 Dr. Alexandra Hagen MD Work Phone: 7(800)765-917244 [place] [address] 09-08-2024 12:22-0400 Body temperature 98 [degF] Dr. Alexandra Hagen MD Work Phone: 1(557)619-682644 [place] [address] 09-08-2024 12:22-0400 Body weight 85.[address] Alexandra Hagen MD Work Phone: 4(116)151-882044 [place] [address] 09-08-2024 12:22-0400 Diastolic blood pressure 70 mm[Hg] Dr. Alexandra Hagen MD Work Phone: 4(171)085-355344 [place] [address] 09-08-2024 12:22-0400 Systolic blood pressure 131 mm[Hg] Dr. Alexandra Hagen MD Work Phone: 6(500)481-543902 [place] [address] 07-01-2024 10:38-0400 Body height 160.[address] Alexandra Hagen MD Work Phone: 2(219)303-559344 [place] [address] 07-01-2024 10:38-0400 Body mass index (BMI) [Ratio] 30.8 kg/m2 Dr. Alexandra Hagen MD Work Phone: 4(506)852-746344 [place] [address] 07-01-2024 10:38-0400 Body weight 78.[address] Alexandra Hagen MD Work Phone: 7(764)519-113444 [place] [address] 07-01-2024 10:38-0400 Diastolic blood pressure 85 mm[Hg] Dr. Alexandra Hagen MD Work Phone: 5(567)573-938844 [place] [address] 07-01-2024 10:38-0400 Heart rate 60 /min Dr. Alexandra Hagen MD Work Phone: 4(801)931-873744 [place] [address] 07-01-2024 10:38-0400 Respiratory rate 16 /min Dr. Alexandra Hagen MD Work Phone: 7(476)283-737544 [place] [address] 07-01-2024 10:38-0400 Systolic blood pressure 184 mm[Hg] Dr. Alexandra Hagen MD Work Phone: 1(076)522-467444 [place] [address] 05-10-2024 14:35-0500 Body height 160.[address] Alexandra Hagen MD Work Phone: 0(265)493-940744 [place] [address] 05-10-2024 14:35-0500 Body mass index (BMI) [Ratio] 30.9 kg/m2 Dr. Alexandra Hagen MD Work Phone: 8(937)926-179044 [place] [address] 05-10-2024 14:35-0500 Body temperature 97.8 [degF] Dr. Alexandra Hagen MD Work Phone: 2(507)298-597344 [place] [address] 05-10-2024 14:35-0500 Body weight 79.[address] Alexandra Hagen MD Work Phone: 6(851)447-172744 [place] [address] 05-10-2024 14:35-0500 Diastolic blood pressure 86 mm[Hg] Dr. Alexandra Hagen MD Work Phone: [facility] 05-10-2024 14:35-0500 Heart rate 75 /min Dr. Alexandra Hagen MD Work Phone: [facility] 05-10-2024 14:35-0500 Respiratory rate 16 /min Dr. Alexandra Hagen MD Work Phone: [facility] 05-10-2024 14:35-0500 SaO2% (BldA) [Mass fraction] 94 % Dr. Alexandra Hagen MD Work Phone: [facility] 05-10-2024 14:35-0500 Systolic blood pressure 140 mm[Hg] Dr. Alexandra Hagen MD Work Phone: [facility] 06-20-2023 11:10-0400 Diastolic blood pressure 92 mm[Hg] Sae Conde MD Work Phone: [facility] [employer] 06-20-2023 11:10-0400 Heart rate 88 /min Sae Conde MD Work Phone: [facility] [employer] 06-20-2023 11:10-0400 Systolic blood pressure 173 mm[Hg] Sae Conde MD Work Phone: [facility] [employer] 06-20-2023 05:34-0400 Body temperature 97.39 [degF] Sae Conde MD Work Phone: [facility] [employer] 06-20-2023 05:34-0400 Respiratory rate 20 /min Sae Conde MD Work Phone: [facility] [employer] 06-20-2023 05:34-0400 SaO2% (BldA) [Mass fraction] 95 % Sae Conde MD Work Phone: [facility] [employer] 06-17-2023 18:30-0400 Body height 160 cm Sae Conde MD Work Phone: [facility] 06-17-2023 18:30-0400 Body mass index (BMI) [Ratio] 30.83 kg/m2 Sae Conde MD Work Phone: [facility] 06-17-2023 18:30-0400 Body weight 78.93 kg Sae Conde MD Work Phone: [facility] 06-16-2023 11:02-0400 Body temperature 96.4 [degF] Dr. Rosemary Doran Work Phone: [facility] 06-16-2023 11:02-0400 Diastolic blood pressure 84 mm[Hg] Dr. Rosemary Doran Work Phone: [facility] 06-16-2023 11:02-0400 Heart rate 72 /min Dr. Rosemary Doran Work Phone: [facility] 06-16-2023 11:02-0400 Respiratory rate 16 /min Dr. Rosemary Doran Work Phone: [facility] 06-16-2023 11:02-0400 SaO2% (BldA) [Mass fraction] 96 % Dr. Rosemary Doran Work Phone: [facility] 06-16-2023 11:02-0400 Systolic blood pressure 157 mm[Hg] Dr. Rosemary Doran Work Phone: [facility] 06-16-2023 08:33-0400 Body height 160.[address] Rosemary Doran Work Phone: [facility] 06-16-2023 08:33-0400 Body mass index (BMI) [Ratio] 33.1 kg/m2 Dr. Rosemary Doran Work Phone: [facility] 06-16-2023 08:33-0400 Body weight 84.[address] Rosemary Doran Work Phone: [facility] 05-19-2023 11:21-0500 Body height 160.[address] Rosemary Doran Work Phone: [facility] 05-19-2023 11:21-0500 Body mass index (BMI) [Ratio] 31.6 kg/m2 Dr. Rosemary Doran Work Phone: [facility] 05-19-2023 11:21-0500 Body temperature 97.8 [degF] Dr. Rosemary Doran Work Phone: [facility] 05-19-2023 11:21-0500 Body weight 81.[address] Rosemary Doran Work Phone: [facility] 05-19-2023 11:21-0500 Diastolic blood pressure 90 mm[Hg] Dr. Rosemary Doran Work Phone: [facility] 05-19-2023 11:21-0500 Heart rate 88 /min Dr. Rosemary Doran Work Phone: [facility] 05-19-2023 11:21-0500 Respiratory rate 17 /min Dr. Rosemary Doran Work Phone: [facility] 05-19-2023 11:21-0500 SaO2% (BldA) [Mass fraction] 98 % Dr. Rosemary Doran Work Phone: [facility] 05-19-2023 11:21-0500 Systolic blood pressure 152 mm[Hg] Dr. Rosemary Doran Work Phone: [facility] 05-15-2023 09:01-0500 Body mass index (BMI) [Ratio] 31.6 kg/m2 Dr. Rosemary Doran Work Phone: [facility] 05-15-2023 09:01-0500 Body weight 81.[address] Rosemary Doran Work Phone: [facility] 05-15-2023 09:01-0500 Diastolic blood pressure 85 mm[Hg] Dr. Rosemary Doran Work Phone: [facility] 05-15-2023 09:01-0500 Heart rate 78 /min Dr. Rosemary Doran Work Phone: [facility] 05-15-2023 09:01-0500 Respiratory rate 18 /min Dr. Rosemary Doran Work Phone: [facility] 05-15-2023 09:01-0500 Systolic blood pressure 156 mm[Hg] Dr. Rosemary Dorna Work Phone: [facility] 01-20-2023 08:05-0400 Body height 160.[address] Rosemary Doran Work Phone: [facility] 01-20-2023 08:05-0400 Body mass index (BMI) [Ratio] 32 kg/m2 Dr. Rosemary Doran Work Phone: [facility] 01-20-2023 08:05-0400 Body temperature 98 [degF] Dr. Rosemary Doran Work Phone: [facility] 01-20-2023 08:05-0400 Body weight 82.[address] Rosemary Doran Work Phone: [facility] 01-20-2023 08:05-0400 Diastolic blood pressure 90 mm[Hg] Dr. Rosemary Doran Work Phone: [facility] 01-20-2023 08:05-0400 Heart rate 88 /min Dr. Rosemary Doran Work Phone: [facility] 01-20-2023 08:05-0400 Respiratory rate 17 /min Dr. Rosemary Doran Work Phone: [facility] 01-20-2023 08:05-0400 SaO2% (BldA) [Mass fraction] 97 % Dr. Rosemary Doran Work Phone: [facility] 01-20-2023 08:05-0400 Systolic blood pressure 140 mm[Hg] Dr. Rosemary Doran Work Phone: [facility] 12-28-2022 11:09-0400 Body temperature 97.8 [degF] Dr. Rosemary Doran Work Phone: [facility] 12-28-2022 11:09-0400 Diastolic blood pressure 79 mm[Hg] Dr. Rosemary Doran Work Phone: [facility] 12-28-2022 11:09-0400 Heart rate 84 /min Dr. Rosemary Doran Work Phone: [facility] 12-28-2022 11:09-0400 Respiratory rate 16 /min Dr. Rosemary Doran Work Phone: [facility] 12-28-2022 11:09-0400 SaO2% (BldA) [Mass fraction] 96 % Dr. Rosemary Doran Work Phone: [facility] 12-28-2022 11:09-0400 Systolic blood pressure 169 mm[Hg] Dr. Rosemary Doran Work Phone: [facility] 12-27-2022 19:16-0400 Body height 160.[address] Rosemary Doran Work Phone: [facility] 12-27-2022 19:16-0400 Body mass index (BMI) [Ratio] 32.1 kg/m2 Dr. Rosemary Doran Work Phone: [facility] 12-27-2022 19:16-0400 Body weight 82.[address] Rosemary Doran Work Phone: [facility] 12-05-2022 09:25-0400 Body temperature 98.2 [degF] Dr. Rosemary Doran Work Phone: [facility] 12-05-2022 09:25-0400 Body weight 82.[address] Rosemary Doran Work Phone: [facility] 12-05-2022 09:25-0400 Diastolic blood pressure 85 mm[Hg] Dr. Rosemary Doran Work Phone: [facility] 12-05-2022 09:25-0400 Heart rate 90 /min Dr. Rosemary Doran Work Phone: [facility] 12-05-2022 09:25-0400 SaO2% (BldA) [Mass fraction] 95 % Dr. Rosemary Doran Work Phone: [facility] 12-05-2022 09:25-0400 Systolic blood pressure 145 mm[Hg] Dr. Rosemary Doran Work Phone: [facility] 11-18-2022 11:24-0400 Diastolic blood pressure 82 mm[Hg] Dr. Rosemary Doran Work Phone: [facility] 11-18-2022 11:24-0400 Heart rate 76 /min Dr. Rosemary Doran Work Phone: [facility] 11-18-2022 11:24-0400 Respiratory rate 15 /min Dr. Rosemary Doran Work Phone: [facility] 11-18-2022 11:24-0400 SaO2% (BldA) [Mass fraction] 98 % Dr. Rosemary Doran Work Phone: [facility] 11-18-2022 11:24-0400 Systolic blood pressure 137 mm[Hg] Dr. Rosemary Doran Work Phone: [facility] 11-18-2022 07:55-0400 Body height 160.[address] Rosemary Doran Work Phone: [facility] 11-18-2022 07:55-0400 Body mass index (BMI) [Ratio] 32.9 kg/m2 Dr. Rosemary Doran Work Phone: [facility] 11-18-2022 07:55-0400 Body weight 84.[address] Rosemary Doran Work Phone: [facility] 11-18-2022 07:50-0400 Body temperature 97.8 [degF] Dr. Rosemary Doran Work Phone: [facility] 11-15-2022 10:11-0400 Body mass index (BMI) [Ratio] 32.2 kg/m2 Dr. Rosemary Doran Work Phone: [facility] 11-15-2022 08:55-0400 Body temperature 97.7 [degF] Dr. Rosemary Doran Work Phone: [facility] 11-15-2022 08:55-0400 Diastolic blood pressure 78 mm[Hg] Dr. Rosemary Doran Work Phone: [facility] 11-15-2022 08:55-0400 Heart rate 68 /min Dr. Rosemary Doran Work Phone: [facility] 11-15-2022 08:55-0400 Respiratory rate 16 /min Dr. Rosemary Doran Work Phone: [facility] 11-15-2022 08:55-0400 SaO2% (BldA) [Mass fraction] 96 % Dr. Rosemary Doran Work Phone: [facility] 11-15-2022 08:55-0400 Systolic blood pressure 136 mm[Hg] Dr. Rosemary Doran Work Phone: [facility] 11-14-2022 13:12-0400 Body weight 82.[address] Rosemary Doran Work Phone: [facility] 11-14-2022 12:30-0400 Body temperature 97.6 [degF] Dr. Rosemary Doran Work Phone: [facility] 11-14-2022 12:30-0400 Diastolic blood pressure 101 mm[Hg] Dr. Rosemary Doran Work Phone: [facility] 11-14-2022 12:30-0400 Heart rate 64 /min Dr. Rosemary Doran Work Phone: [facility] 11-14-2022 12:30-0400 Respiratory rate 14 /min Dr. Rosemary Doran Work Phone: [facility] 11-14-2022 12:30-0400 SaO2% (BldA) [Mass fraction] 98 % Dr. Rosemary Doran Work Phone: [facility] 11-14-2022 12:30-0400 Systolic blood pressure 164 mm[Hg] Dr. Rosemary Doran Work Phone: [facility] 11-14-2022 11:02-0400 Body height 160.[address] Rosemary Doran Work Phone: [facility] 11-14-2022 11:02-0400 Body mass index (BMI) [Ratio] 33.7 kg/m2 Dr. Rosemary Doran Work Phone: [facility] 11-14-2022 11:02-0400 Body weight 86.[address] Rosemary Doran Work Phone: [facility] 10-15-2022 09:24-0400 Body height 160.[address] Rosemary Doran Work Phone: [facility] 10-15-2022 09:24-0400 Body mass index (BMI) [Ratio] 30.8 kg/m2 Dr. Rosemary Doran Work Phone: [facility] 10-15-2022 09:24-0400 Body weight 78.[address] Rosemary Doran Work Phone: [facility] 10-15-2022 09:24-0400 Diastolic blood pressure 87 mm[Hg] Dr. Rosemary Doran Work Phone: [facility] 10-15-2022 09:24-0400 Heart rate 73 /min Dr. Rosemary Doran Work Phone: [facility] 10-15-2022 09:24-0400 Respiratory rate 18 /min Dr. Rosemary Doran Work Phone: [facility] 10-15-2022 09:24-0400 Systolic blood pressure 149 mm[Hg] Dr. Rosemary Doran Work Phone: [facility] 09-18-2022 19:36-0400 Diastolic blood pressure 72 mm[Hg] Dr. Rosemary Doran Work Phone: [facility] 09-18-2022 19:36-0400 Systolic blood pressure 140 mm[Hg] Dr. Rosemary Doran Work Phone: [facility] 09-18-2022 08:05-0400 Body height 160.[address] Rosemary Doran Work Phone: [facility] 09-18-2022 08:05-0400 Body mass index (BMI) [Ratio] 31.8 kg/m2 Dr. Rosemary Doran Work Phone: [facility] 09-18-2022 08:05-0400 Body temperature 97.8 [degF] Dr. Rosemary Doran Work Phone: [facility] 09-18-2022 08:05-0400 Body weight 81.[address] Rosemary Doran Work Phone: [facility] 09-18-2022 08:05-0400 Heart rate 111 /min Dr. Rosemary Doran Work Phone: [facility] 09-18-2022 08:05-0400 Respiratory rate 17 /min Dr. Rosemary Doran Work Phone: [facility] 09-18-2022 08:05-0400 SaO2% (BldA) [Mass fraction] 99 % Dr. Rosemary Doran Work Phone: [facility] 09-08-2022 16:03-0400 Diastolic blood pressure 84 mm[Hg] Dr. Rosemary Doran Work Phone: [facility] 09-08-2022 16:03-0400 Heart rate 90 /min Dr. Rosemary Doran Work Phone: [facility] 09-08-2022 16:03-0400 Respiratory rate 20 /min Dr. Rosemary Doran Work Phone: [facility] 09-08-2022 16:03-0400 SaO2% (BldA) [Mass fraction] 97 % Dr. Rosemary Doran Work Phone: [facility] 09-08-2022 16:03-0400 Systolic blood pressure 157 mm[Hg] Dr. Rosemary Doran Work Phone: [facility] 09-08-2022 15:32-0400 Body mass index (BMI) [Ratio] 33.2 kg/m2 Dr. Rosemary Doran Work Phone: [facility] 09-08-2022 15:32-0400 Body weight [address] Rosemary Doran Work Phone: [facility] 09-08-2022 14:26-0400 Body temperature 96.8 [degF] Dr. Rosemary Doran Work Phone: [facility] 04-16-2022 14:26-0500 Body height 160.[address] Rosemary Doran Work Phone: [facility] 04-16-2022 14:26-0500 Body mass index (BMI) [Ratio] 30.6 kg/m2 Dr. Rosemary Doran Work Phone: [facility] 04-16-2022 14:26-0500 Body weight 78.[address] Rosemary Doran Work Phone: [facility] 04-16-2022 14:26-0500 Diastolic blood pressure 60 mm[Hg] Dr. Rosemary Doran Work Phone: [facility] 04-16-2022 14:26-0500 Heart rate 88 /min Dr. Rosemary Doran Work Phone: [facility] 04-16-2022 14:26-0500 Respiratory rate 18 /min Dr. Rosemary Doran Work Phone: [facility] 04-16-2022 14:26-0500 Systolic blood pressure 89 mm[Hg] Dr. Rosemary Doran Work Phone: [facility] 02-11-2022 02:02-0500 Diastolic blood pressure 82 mm[Hg] Dr. Rosemary Doran Work Phone: [facility] 02-11-2022 02:02-0500 Heart rate 74 /min Dr. Rosemary Doran Work Phone: [facility] 02-11-2022 02:02-0500 Respiratory rate 16 /min Dr. Rosemary Doran Work Phone: [facility] 02-11-2022 02:02-0500 SaO2% (BldA) [Mass fraction] 96 % Dr. Rosemary Doran Work Phone: [facility] 02-11-2022 02:02-0500 Systolic blood pressure 106 mm[Hg] Dr. Rosemary Doran Work Phone: [facility] 02-11-2022 00:07-0500 Body height 160.[address] Rosemary Doran Work Phone: [facility] Work Phone: 02-11-2022 00:07-0500 Body mass index (BMI) [Ratio] 33.1 kg/m2 Dr. Rosemary Doran Work Phone: [facility] 02-11-2022 00:07-0500 Body temperature 98.4 [degF] Dr. Rosemary Doran Work Phone: [facility] 02-11-2022 00:07-0500 Body weight 84.[address] Rosemary Doran Work Phone: [facility] 10-18-2021 10:26-0400 Body mass index (BMI) [Ratio] 33.1 kg/m2 Dr. Rosemary Doran Work Phone: [facility] Work Phone: 10-18-2021 10:26-0400 Body weight 84.[address] Rosemary Doran Work Phone: [facility] Work Phone: 10-18-2021 10:26-0400 Diastolic blood pressure 63 mm[Hg] Dr. Rosemary Doran Work Phone: [facility] Work Phone: 10-18-2021 10:26-0400 Heart rate 87 /min Dr. Rosemary Doran Work Phone: [facility] Work Phone: 10-18-2021 10:26-0400 Respiratory rate 20 /min Dr. Rosemary Doran Work Phone: [facility] Work Phone: 10-18-2021 10:26-0400 SaO2% (BldA) [Mass fraction] 96 % Dr. Rosemary Doran Work Phone: [facility] Work Phone: 10-18-2021 10:26-0400 Systolic blood pressure 101 mm[Hg] Dr. Rosemary Doran Work Phone: [facility] Work Phone: Encounters Encounter Date Encounter Type Care Provider Facility Start: 10-04-2024 ambulatory [facility] Facility: [facility] Start: 09-24-2024 ambulatory [facility] Facility: [facility] Start: 09-22-2024 ambulatory [facility] Facility: [facility] Start: 09-17-2024 ambulatory [facility] Facility: [facility] Start: 09-13-2024 End: 09-13-[address] Anant Juarez MD -[facility] Work Phone: Start: 09-13-2024 End: 09-13-[address] Alexandra Hagen MD Work Phone: [facility] Work Phone: Start: 09-13-2024 End: 09-13-2024 ambulatory [facility] Start: 09-11-2024 Non-patient / Non-visit Dr. Bai DO [facility] Work Phone: Start: 09-10-2024 End: 09-11-2024 ambulatory [facility] Start: 09-10-2024 End: 09-11-2024 Evaluation and management of inpatient Dr. Matthew Oro DO [facility] Work Phone: Start: 09-10-2024 End: 09-11-[address] Alexandra Hagen MD Work Phone: [facility] Work Phone: Start: 09-08-2024 End: 09-08-2024 Emergency department patient visit Dr. Alexandra Hagen MD Work Phone: -Emergency Department Work Phone: Start: 08-18-2024 End: 08-18-[address] Alexandra Hagen MD Work Phone: [facility] Work Phone: Start: 08-18-2024 End: 08-18-2024 Departed Referred [facility] Work Phone: Start: 08-18-2024 Registered Referred [facility] Work Phone: Start: 08-18-2024 End: 08-18-2024 ambulatory Cesar MARTINEZ Facility:[facility] Start: 07-19-2024 End: 07-19-[address] Alexandra Hagen MD Work Phone: [facility] Work Phone: Start: 07-19-2024 End: 07-19-2024 Departed Referred [facility] Work Phone: Start: 07-19-2024 End: 07-19-2024 ambulatory Cesar MARTINEZ Facility:[facility] Start: 07-01-2024 End: 07-01-[address] Cesar Cole MD -[facility] Work Phone: Start: 07-01-2024 End: 07-01-2024 ambulatory Alexandra Hagen Facility:[facility] [place] Start: 06-16-2024 End: 06-16-[address] Alexandra Hagen MD Work Phone: [facility] Work Phone: Start: 06-16-2024 End: 06-16-[address] [facility] Work Phone: Start: 06-16-[address] [facility] Work Phone: Start: 06-16-2024 End: 06-16-2024 ambulatory Alexandra Hagen Facility:[facility] Start: 06-09-2024 End: 06-09-[address] Alexandra Hagen MD Work Phone: [facility] Work Phone: Start: 06-09-2024 End: 06-09-[address] K[facility]ng [facility]cho[facility] Work Phone: Start: 06-09-2024 End: 06-09-2024 ambulatory Alexandra Hagen Facility:[facility] Start: 05-19-2024 End: 05-19-[address] Alexandra Hagen MD Work Phone: [facility] Work Phone: Start: 05-19-2024 End: 05-19-[address] [facility] Work Phone: Start: 05-19-2024 Registered Referred [facility] Work Phone: Start: 05-19-2024 End: 05-19-2024 ambulatory Cesar MARTINZE Facility:[facility] Start: 05-12-2024 ambulatory Alexandra Hagen Facility: [facility] Start: 05-12-2024 Registered Referred [facility] Work Phone: Start: 05-10-2024 End: 05-10-[address] Anant Juarez MD -[facility] Work Phone: Start: 05-10-2024 End: 05-10-2024 ambulatory Anant Juarez Facility:[facility] [place] Start: 05-05-2024 End: 05-05-[address] Alexandra Hagen MD Work Phone: [facility] Work Phone: Start: 05-05-2024 End: 05-05-2024 Departed Referred [facility] Work Phone: Start: 05-05-[address] Work Phone: Start: 05-05-2024 End: 05-05-2024 ambulatory Cesar Cole [facility] Facility:[facility] Start: 04-28-2024 End: 04-28-[address] Alexandra Hagen MD Work Phone: [facility] Work Phone: Start: 04-28-2024 End: 04-28-[address] [facility] Work Phone: Start: 04-28-2024 End: 04-28-2024 ambulatory Alexandra S Jolliff Facility:[facility] Start: 04-14-2024 ambulatory Alexandra S Jolliff Facility: [facility] Start: 04-14-[address] [facility] Work Phone: Start: 04-09-2024 End: 04-09-[address] [facility] Work Phone: Start: 04-09-2024 End: 04-09-2024 ambulatory Alexandra S Jolliff Facility:[facility] Start: 04-06-2024 End: 04-06-[address] [facility] Work Phone: Start: 04-05-2024 End: 04-06-2024 ambulatory Alexandra S Jolliff Facility:[facility] Start: 04-05-[address] [facility] Work Phone: Start: 03-29-2024 ambulatory Kvng MARTINEZ Facil ity:[facility] Start: 03-29-[address] [facility] Work Phone: Start: 03-26-2024 ambulatory Kvng MARTINEZ Facil ity:[facility] Start: 03-26-[address] [facility] Work Phone: Start: 03-25-2024 ambulatory Kvng Ochoa [facility] Facil ity:[facility] Start: 03-25-[address] [facility] Work Phone: Start: 03-19-2024 ambulatory Alexandra S Jolliff Facility: [facility] Start: 03-19-[address] [facility] Work Phone: Start: 03-17-2024 ambulatory Kvng MARTINEZ Facil ity:[facility] Start: 03-17-[address] [facility] Work Phone: Start: 03-10-2024 ambulatory Alexandra S Jolliff Facility: [facility] Start: 03-10-[address] [facility] Work Phone: Start: 03-08-2024 ambulatory Alexandra S Jolliff Facility: [facility] Start: 03-08-[address] [facility] Work Phone: Start: 03-04-2024 ambulatory Alexandra S Jolliff Facility: [facility] Start: 03-04-[address] [facility] Work Phone: Start: 02-05-2024 End: 02-05-[address] [facility] Work Phone: Start: 02-05-2024 End: 02-05-2024 ambulatory Kvng MARTINEZ Facility:[facility] Start: 01-08-2024 End: 01-08-2024 ambulatory Kvng MARTINEZ Facility:[facility] Start: 12-26-2023 End: 12-26-2023 ambulatory Kvng Don [facility] Facility:[facility] Start: 12-19-2023 End: 12-19-2023 ambulatory Kvng MARTINEZ Facility:[facility] Start: 12-18-2023 End: 12-18-2023 ambulatory Alexandra S Jolliff Facility:[facility] Start: 11-20-2023 ambulatory Kvng MARTINEZ Facil ity:[facility] Start: 11-05-2023 End: 11-05-2023 ambulatory Kvng Ochoa [facility] Facility:[facility] Start: 11-04-2023 End: 11-04-2023 ambulatory Kvng Ochoa [facility] Facility:[facility] Start: 10-28-2023 End: 10-28-2023 ambulatory Alexandra S Jolliff Facility:[facility] Start: 10-24-2023 End: 10-24-2023 ambulatory Alexandra S Jolliff Facility:[facility] Start: 10-21-2023 End: 10-21-2023 ambulatory Alexandra S Jolliff Facility:[facility] Start: 10-15-2023 End: 10-15-2023 ambulatory Alexandra S Jolliff Facility:[facility] Start: 10-10-2023 End: 10-10-2023 ambulatory Alexandra S Jolliff Facility:[facility] Start: 06-30-2023 End: 06-30-[address] Rosemary Doran Work Phone: [facility] Work Phone: Start: 06-30-2023 End: 06-30-[address] Rosemary Doran Work Phone: [facility] Work Phone: Start: 06-16-2023 End: 06-20-2023 Evaluation and management of inpatient [facility] Start: 06-16-2023 End: 06-20-2023 Evaluation and management of inpatient Sae Conde MD Work Phone: [facility] Comment on above: Closed displaced fra cture of medial condyle of right humerus, initial encounter (Primary Dx) Start: 06-16-2023 Non-patient / Non-visit Dr. Slim Doran Work Phone: [facility] Start: 06-16-2023 End: 06-16-2023 Emergency department patient visit Dr. Rosemary Doran Work Phone: [facility]Emergency Department Work Phone: Start: 05-30-2023 End: 05-30-[address] Rosemary Doran Work Phone: [facility] Work Phone: Start: 05-30-2023 End: 05-30-[address] Rosemary Doran Work Phone: [facility] Work Phone: Start: 05-19-2023 End: 05-19-[address] Rosemary Doran Work Phone: [facility] Work Phone: Start: 05-15-2023 End: 05-15-[address] Rosemary Doran Work Phone: [facility] Work Phone: Start: 05-12-2023 End: 05-12-[address] Rosemary Doran Work Phone: [facility] Work Phone: Start: 05-12-[address] Rosemary Doran Work Phone: [facility] Work Phone: Start: 05-01-2023 End: 05-01-[address] Rosemary Doran Work Phone: [facility] Work Phone: Start: 05-01-2023 End: 05-01-[address] Rosemary Doran Work Phone: [facility] Work Phone: Start: 04-17-2023 End: 04-17-[address] Rosemary Doran Work Phone: [facility] Work Phone: Start: 04-17-2023 End: 04-17-[address] Rosemary Doran Work Phone: [facility] Work Phone: Start: 04-17-[address] Rosemary Doran Work Phone: [facility] Work Phone: Start: 03-20-2023 End: 03-20-[address] Rosemary Doran Work Phone: [facility] Work Phone: Start: 02-21-2023 End: 02-21-[address] Rosemary Doran Work Phone: [facility] Work Phone: Start: 02-21-2023 End: 02-21-[address] Rosemary Doran Work Phone: [facility] Work Phone: Start: 01-20-2023 End: 01-20-[address] Rosemary Doran Work Phone: [facility] Work Phone: Start: 01-20-2023 End: 01-20-[address] Rosemary Doran Work Phone: [facility] Work Phone: Start: 01-20-2023 End: 01-20-[address] Rosemary Doran Work Phone: [facility] Work Phone: Start: 01-16-2023 End: 01-16-[address] Rosemary Doran Work Phone: [facility] Work Phone: Start: 01-16-2023 End: 01-16-[address] Rosemary Doran Work Phone: [facility] Work Phone: Start: 12-28-2022 Non-patient / Non-visit Dr. Slim Doran Work Phone: [facility] Work Phone: Start: 12-27-2022 Non-patient / Non-visit Dr. Slim Doran Work Phone: [facility] Work Phone: Start: 12-27-2022 End: 12-28-2022 Evaluation and management of inpatient Dr. Rosemary Doran Work Phone: [facility]-Progressive Care Unit Work Phone: Start: 12-27-2022 End: 12-28-[address] Rosemary Doran Work Phone: [facility] Work Phone: Start: 12-19-2022 End: 12-19-[address] Rosemary Doran Work Phone: [facility] Work Phone: Start: 12-19-2022 End: 12-19-[address] Rosemary Doran Work Phone: [facility] Work Phone: Start: 12-19-[address] Rosemary Doran Work Phone: [facility] Work Phone: Start: 12-09-2022 End: 12-09-[address] Rosemary Doran Work Phone: [facility] Work Phone: Start: 12-09-2022 End: 12-09-[address] Rosemary Doran Work Phone: [facility] Work Phone: Start: 12-09-[address] Rosemary Doran Work Phone: [facility] Work Phone: Start: 12-05-2022 End: 12-05-[address] Rosemary Doran Work Phone: [facility] Work Phone: Start: 11-20-2022 End: 11-20-[address] Rosemary Doran Work Phone: [facility] Work Phone: Start: 11-20-2022 End: 11-20-[address] Rosemary Doran Work Phone: [facility] Work Phone: Start: 11-20-[address] Rosemary Doran Work Phone: [facility] Work Phone: Start: 11-18-2022 End: 11-18-2022 Emergency department patient [facility] Start: 11-15-2022 Non-patient / Non-visit Dr. Slim Doran Work Phone: [facility] Work Phone: Start: 11-14-2022 Non-patient / Non-visit Dr. Slim Doran Work Phone: [facility] Start: 11-14-2022 Non-patient / Non-visit Dr. Slim Doran Work Phone: [facility] Work Phone: Start: 11-14-2022 End: 11-15-2022 Evaluation and management of inpatient Dr. Rosemary Doran Work Phone: [facility]Progressive Care Unit Work Phone: Start: 11-14-[address] Marcelo Doran Work Phone: [facility] Work Phone: Start: 10-23-2022 End: 10-23-[address] Rosemary Doran Work Phone: [facility] Work Phone: Start: 10-23-2022 End: 10-23-[address] Rosemary Doran Work Phone: [facility] Work Phone: Start: 10-22-2022 End: 10-22-[address] Rosemary Doran Work Phone: [facility] Work Phone: Start: 10-22-2022 End: 10-22-[address] Rosemary Doran Work Phone: [facility]-Physical Therapy Work Phone: Start: 10-22-[address] Sada Doran Work Phone: [facility] Work Phone: Start: 10-15-2022 End: 10-15-[address] Rosemary Doran Work Phone: [facility] Work Phone: Start: 09-26-2022 Non-patient / Non-visit Dr. Slim Doran Work Phone: [facility] Start: 09-26-2022 End: 09-26-[address] Rosemary Doran Work Phone: [facility] Work Phone: Start: 09-26-2022 End: 09-26-[address] Rosemary Doran Work Phone: [facility] Work Phone: Start: 09-18-2022 End: 09-18-[address] Rosemary Doran Work Phone: [facility] Work Phone: Start: 09-18-2022 End: 09-18-[address] Rosemary Doran Work Phone: [facility] Start: 09-13-2022 End: 09-13-[address] Rosemary Doran Work Phone: [facility]-Laboratory Start: 09-08-2022 End: 09-08-2022 Emergency department patient visit Dr. Rosemary Doran Work Phone: [facility]-Emergency Department Start: 09-06-2022 End: 09-06-2022 Patient encounter procedure Dr. Rosemary Doran Work Phone: [facility] Start: 09-05-2022 End: 09-05-[address] Rosemary Doran Work Phone: [facility] Start: 08-08-2022 End: 08-08-[address] [facility] Start: 06-26-2022 End: 06-26-[address] Rosemary Doran Work Phone: [facility] Work Phone: Start: 06-26-2022 End: 06-26-[address] [facility] Start: 06-04-2022 End: 06-04-[address] Rosemary Doran Work Phone: [facility] Work Phone: Start: 06-04-2022 End: 06-04-[address] Rosemary Doran Work Phone: [facility] Start: 04-16-2022 End: 04-16-[address] Rosemary Doran Work Phone: [facility] Start: 02-11-2022 End: 02-11-2022 Emergency department patient visit Dr. Rosemary Doran Work Phone: [facility] Start: 10-18-2021 End: 10-18-[address] Rosemary Doran Work Phone: [facility] Start: 10-12-2019 End: 10-12-2019 Refill Jo Perez Work Phone: [facility] Comment on above: Refill Request; Refi ll Request Start: 02-11-2018 Patient encounter ROSA ELENA Cai lity:[facility] Start: 01-05-2018 End: 01-05-2018 Patient encounter JO PEREZ Facility:[facility] Start: 07-21-2017 End: 07-21-2017 Patient encounter RICKEY CHAVARRIA Facility:[facility] Start: 07-15-2017 Patient encounter JO PEREZ Facility:[facility] Start: 07-07-2017 End: 07-07-2017 Patient encounter JO PEREZ Facility:[facility] Start: 06-27-2017 End: 06-27-2017 Patient encounter JO PEREZ Facility:[facility] Start: 06-11-2017 Patient encounter JO PEREZ Facility:[facility] Start: 02-01-2015 End: 02-01-2015 Patient encounter procedure Shi Lester Work Phone: [facility] Start: 02-01-2015 Results Only Shi ford Work Phone: [facility] Start: 04-17-2010 End: 04-17-2010 Patient encounter procedure Cruz Geiger Lipnorristt Work Phone: [facility] Start: 04-17-2010 Results Only Cruz Nguyen ippitt Work Phone: [facility] Start: 07-31-2009 End: 07-31-2009 Patient encounter procedure Clotilde Doss Work Phone: [facility] Start: 07-31-2009 Results Only Clotilde Stone V rabec Work Phone: [facility] Start: 05-07-2001 End: 05-07-2001 Patient encounter procedure Sae Hope Astrid Work Phone: [facility] Start: 05-07-2001 Results Only Sae H Pap as Work Phone: [facility] Procedures Date Procedure Procedure Detail Performing [...] quantitative blood xcpt reagent strip Connie Perez BEAM SAW OPERATOR - ONCOLOGY PHARMACIST Work Phone: Start: 06-20-2023 Prothrombin time Meredi th Perez BEAM SAW OPERATOR - ONCOLOGY PHARMACIST Work Phone: Start: 06-19-2023 Glucose quantitative blood xcpt reagent strip Connie Perez BEAM SAW OPERATOR - ONCOLOGY PHARMACIST Work Phone: Start: 06-19-2023 Glucose quantitative blood xcpt reagent strip Connie Perez BEAM SAW OPERATOR - ONCOLOGY PHARMACIST Work Phone: Start: 06-19-2023 Glucose quantitative blood xcpt reagent strip Connie Perez BEAM SAW OPERATOR - ONCOLOGY PHARMACIST Work Phone: Start: 06-19-2023 Prothrombin time Meredi th Perez BEAM SAW OPERATOR - ONCOLOGY PHARMACIST Work Phone: Start: 06-19-2023 Glucose quantitative blood xcpt reagent strip Connie Perez BEAM SAW OPERATOR - ONCOLOGY PHARMACIST Work Phone: Start: 06-19-2023 Basic metabolic pane l calcium total Connie Perez BEAM SAW OPERATOR - ONCOLOGY PHARMACIST Work Phone: Start: 06-18-2023 Glucose quantitative blood [...] metabolic pane l calcium total Connie Perez BEAM SAW OPERATOR - ONCOLOGY PHARMACIST Work Phone: Start: 06-17-2023 Glucose quantitative blood xcpt reagent strip Generic Provider Poct Start: 06-17-2023 Prothrombin time Talon Dinero MD Work Phone: Start: 06-17-2023 Radiologic exam ches t single view Shayne Fonseca MD Work Phone: Start: 06-17-2023 Ecg routine ecg w/le ast 12 lds trcg only w/o i&r Shayne Fnoseca MD Work Phone: Start: 06-16-2023 Ct upper extremity w /o contrast material Deondre Kaufman MD Work Phone: Start: 06-16-2023 Antibody screen JAYSHREE CORTEZ Comment on above: Performed By: #### L [id number] ####Commercial Production Editor: ALEXANDRA BUSTAMANTE ([phone])[facility] ([facility])[address] [place] [address] Start: 06-16-2023 End: 06-16-2023 Radex shoulder complete [...] Phone: Start: 02-01-2015 CONVERTED SURGICAL PATHOLOGY Shi Davis Gideon Work Phone: Start: 04-17-2010 CONVERTED SURGICAL PATHOLOGY Cruz Lemosvel Sanchez Work Phone: Start: 07-31-2009 CONVERTED SURGICAL PATHOLOGY Clotilde Juradochastity Doss Work Phone: Start: 02-14-2007 History of placement of stent for coronary artery disease History of coronary artery stent placement Dr. Cesar Cole MD Comment on above: PCI-JOE-Mid LCx w/ 2 .5 x 20 mm Taxus Stent 02/14/2007 Start: 05-07-2001 CONVERTED SURGICAL PATHOLOGY Sae Graffas Work Phone: Plan of Treatment Date Care Activity Detail Author Start: 09-13-2024 Lamotrigine measurement [facility] Start: 09-13-2024 Measurement of substance [facility] Start: 09-11-2024 Patient discharge [facility] Start: 09-11-2024 Complete blood count [facility] Start: 09-10-2024 Following clinical p athway protocol [facility] Start: 09-10-2024 Transfusion of blood product [facility] Start: 09-10-2024 Aspiration precautions [facility] Start: 09-10-2024 Assessment of risk o f venous thromboembolism [facility] Start: 09-10-2024 Cardiac monitoring [facility] Start: 09-10-2024 Catheterization of vein [facility] Start: 09-10-2024 Consultation [facility] Start: 09-10-2024 Continuous pulse oximetry [facility] Start: 09-10-2024 Electroencephalogram [facility] Start: 09-10-2024 Elevation of head of bed [facility] Start: 09-10-2024 Exercises [facility] Start: 09-10-2024 Insertion of cathete r into peripheral vein [facility] Start: 09-10-2024 Notification of physician [facility] Start: 09-10-2024 Oxygen therapy [facility] Start: 09-10-2024 Patient referral to dietitian [facility] Start: 09-10-2024 Providing care accor ding to standard [facility] Start: 09-10-2024 Referral to occupati onal therapist [facility] Start: 09-10-2024 Referral to service [facility] Start: 09-10-2024 Speech therapy assessment [facility] Start: 09-10-2024 Telemedicine consult ation with patient [facility] Start: 09-10-2024 Tobacco use cessatio n education [facility] Start: 09-10-2024 Vital signs measurements [facility] Start: 09-10-2024 End: 09-10-2024 [facility] Start: 09-10-2024 Verification routine [facility] Start: 09-10-2024 MRI of brain without contrast Brain without Contrast [facility] Start: 09-10-2024 Admission procedure [facility] Start: 09-10-2024 [facility] Start: 09-10-2024 Bacteria identified in Urine by Culture Urine Culture [facility] Start: 09-10-2024 Urine culture [facility] Start: 09-10-2024 Oxygen therapy [facility] Start: 09-10-2024 [facility] Start: 09-08-2024 Lamotrigine measurement [facility] Start: 01-06-2024 Urine microalbumin profile DTA P,TDAP,TD (1 - Tdap) [facility] Comment on above: Postponed from 06/23 (Declined at this time) Start: 07-28-2023 ADVANCE DIRECTIVE DISCUSSION A DVANCE DIRECTIVE DISCUSSION [facility] Start: 06-16-2023 Application long arm splint shoulder hand APPLY LONG ARM SPLINT [facility] Start: 06-16-2023 [facility] Start: 03-31-2023 Medicare Advantage A nnual Wellness Visit Medicare Advantage Annual Wellness Visit [facility] Start: 01-20-2023 Serum immunofixation [facility] Start: 01-20-2023 Urine immunofixation [facility] Start: 12-28-2022 Patient discharge [facility] Start: 12-28-2022 [facility] Start: 12-27-2022 Following clinical p athway protocol [facility] Start: 12-27-2022 Assessment of risk o f venous thromboembolism [facility] Start: 12-27-2022 Catheterization of vein [facility] Start: 12-27-2022 Incentive spirometry [facility] Start: 12-27-2022 Inhalation therapy procedure [facility] Start: 12-27-2022 Insertion of cathete r into peripheral vein [facility] Start: 12-27-2022 Measuring intake and output [facility] Start: 12-27-2022 Neurological assessment [facility] Start: 12-27-2022 Providing care accor ding to standard [facility] Start: 12-27-2022 Provision of activit y privileges [facility] Start: 12-27-2022 Referral to occupati onal therapist [facility] Start: 12-27-2022 Referral to service [facility] Start: 12-27-2022 Speech therapy assessment [facility] Start: 12-27-2022 [facility] Start: 12-27-2022 Admission procedure [facility] Start: 11-15-2022 Patient discharge [facility] Start: 11-15-2022 Blood chemistry [facility] Start: 11-14-2022 Following clinical p athway protocol [facility] Start: 11-14-2022 Assessment of risk o f venous thromboembolism [facility] Start: 11-14-2022 Cardiac monitoring [facility] Start: 11-14-2022 Catheterization of vein [facility] Start: 11-14-2022 Continuous pulse oximetry [facility] Start: 11-14-2022 Elevation of head of bed [facility] Start: 11-14-2022 Exercises [facility] Start: 11-14-[address] anned interventions [facility] Start: 11-14-2022 Insertion of cathete r into peripheral vein [facility] Start: 11-14-2022 Measuring intake and output [facility] Start: 11-14-2022 MRI of brain without contrast Brain without Contrast [facility] Start: 11-14-2022 Notification of physician [facility] Start: 11-14-2022 Oxygen therapy [facility] Start: 11-14-2022 Patient referral to dietitian [facility] Start: 11-14-2022 Providing care accor ding to standard [facility] Start: 11-14-2022 Referral to occupati onal therapist [facility] Start: 11-14-2022 Referral to service [facility] Start: 11-14-2022 Speech therapy assessment [facility] Start: 11-14-2022 Tobacco use cessatio n education [facility] Start: 11-14-2022 [facility] Start: 11-14-2022 Verification routine [facility] Start: 11-14-2022 Admission procedure [facility] Start: 11-14-2022 Patient referral to dietitian [facility] Start: 09-18-2022 Patient referral [facility] Work Phone: Start: 09-18-2022 [place] and lambda light chains [facility] Start: 09-18-2022 Thiamine measurement [facility] Start: 09-17-2022 [facility] Start: 03-26-2020 Hepatitis B screening URINE ALBUMIN:CREATININE RATIO [facility] Start: 03-26-2020 Hepatitis B surface antibody level LDL CHOLESTEROL [facility] Start: 11-30-2019 Influenza vaccination INFLUENZA (#1) [facility] Start: 10-01-2019 [object Object] DIABETIC FOOT EXAM [facility] Start: 09-25-2019 HbA1c (Bld) [Mass fraction] HBA1C [facility] Start: 07-07-2018 Hepatitis C antibody , confirmatory test DILATED RETINAL EXAM [facility] Start: 07-20-2013 DTaP/Tdap/Td Vaccine s (1 - Tdap) DTaP/Tdap/Td Vaccines (1 - Tdap) [facility] Start: 12-05-2010 SHINGRIX VACCINE (2 of 3) CONTRERAS GRIX VACCINE (2 of 3) [facility] Start: 12-05-2010 Zoster Vaccines (2 of 3) Zoste r Vaccines (2 of 3) [facility] Start: 1995 RSV Immunization age d 60 or older (1 - 1-dose 60+ series) RSV Immunization aged 60 or older (1 - 1-dose 60+ series) [facility] Start: 1947 Depression Screening Depression Scre ening [facility] Start: 1935 Screening for osteoporosis Bone Dens ity Scan [facility] Albumin [Moles/volum e] in Serum or Plasma [facility] Albumin/Globulin ratio [facility] Anion gap in Serum or Plasma [facility] Anion gap measurement [facility] Ankle brachial pressure index [facility] Blood ammonia measurement [facility] Blood ammonia measurement [facility] BUN/Creatinine ratio [facility] BUN/Creatinine ratio [facility] Calcium [Mass/volume ] in Serum or Plasma [facility] Calcium [Mass/volume ] in Serum or Plasma [facility] Carbon dioxide, tota l [Moles/volume] in Central venous blood [facility] Carbon dioxide, tota l [Moles/volume] in Serum or Plasma [facility] Chloride [Moles/volu me] in Serum or Plasma [facility] Cholesterol [Mass/vo lume] in Serum or Plasma [facility] Cholesterol [Mass/vo lume] in Serum or Plasma [facility] Cholesterol in HDL [Mass/volume] in Serum or Plasma [facility] Cholesterol in HDL [Mass/volume] in Serum or Plasma [facility] Cholesterol in LDL [Mass/volume] in Serum or Plasma [facility] Creatinine [Mass/vol ume] in Serum or Plasma [facility] Creatinine [Moles/vo lume] in Serum or Plasma [facility] Electrophoresis: [id number] [facility] Electrophoresis: andrew ma globulin [facility] Erythrocyte mean cor puscular volume determination [facility] Globulin measurement [facility] Glucose [Mass/volume ] in Serum or Plasma [facility] Glucose [Mass/volume ] in Serum or Plasma [facility] Hematocrit [Volume F raction] of Blood [facility] Hematocrit [Volume F raction] of Blood [facility] Hemoglobin [Mass/vol ume] in Blood [facility] Hemoglobin [Mass/vol ume] in Blood [facility] IgA [Mass/volume] in Serum or Plasma [facility] IgG [Mass/volume] in Serum or Plasma [facility] IgM [Mass/volume] in Serum or Plasma [facility] [place]/lambda light c nat ratio [facility] Lambda light chains. free [Mass/volume] in Serum or Plasma [facility] Lamotrigine measurement [facility] Leukocytes [#/volume ] in Blood [facility] Leukocytes [#/volume ] in Blood [facility] Low density lipoprot ein cholesterol measurement [facility] Mean corpuscular hem oglobin concentration determination [facility] Mean corpuscular hem oglobin concentration determination [facility] Mean corpuscular hem oglobin determination [facility] Mean corpuscular hem oglobin determination [facility] Measurement of renal function [facility] Measurement of renal function [facility] MR Cervical spine [facility] MR Lumbar spine [facility] Neutrophil count [facility] Neutrophil percent differential count [facility] Patient Education [facility] Work Phone: Patient referral [facility] Work Phone: Platelets [#/volume] in Blood [facility] Platelets [#/volume] in Blood [facility] Potassium [Moles/vol ume] in Serum or Plasma [facility] Potassium measurement [facility] Protein electrophore sis panel - Serum or Plasma [facility] Red blood cell count [facility] Red blood cell count [facility] Red cell distributio n width determination [facility] Red cell distributio n width determination [facility] Serum chloride measurement [facility] Serum protein electrophoresis [facility] Sodium [Moles/volume ] in Serum or Plasma [facility] Sodium measurement [facility] Total cholesterol:HD L ratio measurement [facility] Triglycerides measurement [facility] Triglycerides measurement [facility] Troponin T.cardiac [Mass/volume] in Serum or Plasma by High sensitivity method [facility] Troponin T.cardiac [Mass/volume] in Serum or Plasma by High sensitivity method [facility] Urea nitrogen [Mass/ volume] in Serum or Plasma [facility] Urea nitrogen [Mass/ volume] in Serum or Plasma [facility] Urine culture Urine Culture [facility] Urine kappa light ch ain measurement [facility] US Carotid arteries [facility] VLDL cholesterol measurement [facility] VLDL cholesterol measurement [facility] Immunizations Immunization Date Immunization Notes Care Provider Naomi chung 06-02-2020 Covid (Moderna) Dr. Rosemary mixon Work Phone: [facility] 05-05-2020 Covid (Moderna) Dr. Rosemary mixon Work Phone: [facility] 04-27-2019 influenza, high dose seasonal, preservative-free Alexia Adamsdonna [facility] 01-05-2018 influenza, high dose seasonal, preservative-free Alexia Adamsi [facility] 12-12-2014 influenza, seasonal, injectable Alexia Adamsdonna [facility] 06-15-2014 pneumococcal conjuga te vaccine, 13 valent Allia Adamsdonna [facility] 12-06-2013 influenza, seasonal, injectable Alexia Adamsdonna [facility] 07-19-2013 tetanus and diphther ia toxoids, adsorbed, preservative free, for adult use (2 Lf of tetanus toxoid and 2 Lf of diphtheria toxoid) Jo Lamasdonna [facility] 01-25-2013 influenza, seasonal, injectable Alexia Jeanmarieevladariusi [facility] 01-13-2012 influenza, seasonal, injectable Alexia Jeanmarieevkaron [facility] 02-11-2011 influenza, seasonal, injectable Alexia Adamsdonna [facility] 10-10-2010 zoster vaccine, live Alexia Adamss [facility] 03-31-2006 pneumococcal polysaccharide vaccine, 23 valent [facility] Payers Date Payer Category Payer Self-pay [id number] 2023 Medicare [employer] UHC AARP MEDICARE ADVANTAGE [id number] 2023-Present [phone] [address] [address] [place] [address] Medicare HMO [id number] 2023 Unknown [id number] 2005 Unknown [id number] .[id number] 1935 Unknown [id number] 2.16.840.1.507926.3.579.2.278 1935 Unknown [id number] 2.16.840.1.479521.3.579.2.278 1935 Unknown [id number] 2.16.840.1.148161.3.579.2.278 1935 Unknown [id number] 2.16.840.1.075025.3.579.2.278 1935 Unknown [id number] 2.16.840.1.033758.3.579.2.278 1935 Unknown [id number] 2.16.840.1.728956.3.579.2.278 1935 Unknown [id number] 2.16.840.1.900655.3.579.2.278 Medicare MEDICARE PART A B [id number] Unknown [id number] Unknown [id number] 2.16.840.1.598243.3.579.2.462 Unknown [id number] 2.16.840.1.581573.3.579.2.462 Unknown [id number] 2.16.840.1.230301.3.579.2.462 Unknown [id number] 2.16.840.1.418965.3.579.2.462 Unknown [id number] 2.16.840.1.321264.3.579.2.462 Unknown [id number] 2.16.840.1.559274.3.579.2.462 Unknown [id number] 2.16.840.1.854422.3.579.2.462 Unknown [id number] 2.16.840.1.870780.3.579.2.462 Unknown [id number] 2.16.840.1.541785.3.579.2.462 Unknown [id number] 2.16.840.1.930513.3.579.2.462 Unknown [id number] 2.16.840.1.409336.3.579.2.462 Unknown [id number] 2.840.1.503991.3.579.2.462 Unknown [id number] 2.16840.1.450407.3.579.2.462 Unknown [id number] 2.840.1.283180.3.579.2.462 Unknown [id number] 2.16840.1.173085.3.579.2.462 Unknown [id number] 2.16840.1.395742.3.579.2.462 Unknown [id number] 2.840.1.108239.3.579.2.462 Unknown [id number] 2.16840.1.875487.3.579.2.462 Unknown [id number] 2.16840.1.832163.3.579.2.462 Unknown [id number] 2.16840.1.809023.3.579.2.462 Unknown [id number] 2.16.840.1.842371.3.579.2.462 Unknown [id number] 2.16.840.1.765492.3.579.2.462 Unknown [id number] 2.16.840.1.576090.3.579.2.462 Unknown [id number] 2.16840.1.864215.3.579.2.462 Unknown [id number] 2.16.840.1.275529.3.579.2.462 Unknown [id number] 2.16.840.1.748124.3.579.2.462 Unknown [id number] 2.16.840.1.123648.3.579.2.462 Unknown [id number] 2.16840.1.006751.3.579.2.462 Unknown [id number] 2.16840.1.883727.3.579.2.462 Unknown [id number] 2.840.1.624046.3.579.2.462 Unknown [id number] 2.840.1.569836.3.579.2.462 Unknown [id number] 2.840.1.306801.3.579.2.462 Unknown [id number] 2.840.1.239721.3.579.2.462 Unknown [id number] 2.840.1.699492.3.579.2.462 Unknown [id number] 2.840.1.560878.3.579.2.462 Unknown [id number] 2.840.1.289414.3.579.2.462 Unknown [id number] 2.840.1.275253.3.579.2.462 Unknown [id number] 2.840.1.261936.3.579.2.462 Unknown [id number] 2.840.1.260310.3.579.2.462 Unknown [id number] 2.840.1.128981.3.579.2.462 Unknown [id number] 2.16840.1.816004.3.579.2.462 Unknown [id number] 2.16840.1.315327.3.579.2.462 Unknown [id number] 2.840.1.593106.3.579.2.462 Unknown [id number] 2.16.840.1.204048.3.579.2.462 Unknown [id number] 2.16.840.1.805426.3.579.2.462 Social History Date Type Detail Facility Start: 05-13-2019 End: 09-11-2024 Tobacco smoking status [facility] Former smoker [facility] End: 03-20-2008 History of tobacco use Current smoker [facility] End: 03-20-2008 History of tobacco use Cigarette Smoker [facility] Start: 05-13-2019 End: 06-17-2023 Cigarettes smoked current (pack per day) - Reported [facility] Start: 05-13-2019 End: 06-18-2023 Tobacco use and exposure Never used [facility] Start: 05-13-2019 Alcohol intake 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 Exposure to SARS-CoV -2 (event) Not sure [facility] Start: 02-11-2022 End: 06-16-2023 Tobacco smoking status NHIS Unknown if ever smoked [facility] Start: 04-19-2020 Rare [facility] Start: 04-19-2020 None [facility] Start: 04-19-2020 Spouse/ Signif icant Other [facility] Start: 08-11-2020 Non-smoker [facility] Start: 1935 Sex Assigned At Female W [facility] Start: 06-18-2023 Tobacco smoking stat us NHIS Never smoked tobacco [employer] Start: 06-17-2023 End: 06-18-2023 [facility] [employer] Has the [employer], Seeo, or water [employer] threatened to shut off services in your home in past 12Mo No [employer] How often to you hav e a drink containing alcohol? Never [facility] How many standard drinks containing alcohol do you have on a typical day? Patient does not drink [facility] (I/We) worried wheth er (my/our) food would run out before (I/we) got money to buy more. Never true [employer] Start: 06-04-2024 End: 07-20-2024 Sex Female (finding) [facility] Medical Equipment Procedure Code Equipment Code [...] Diagnosis code E11.9 Use as instructed [employer] Cancellous 30cc 1-8 - [id number] - [id number] Start: 06-18-2023 Plate Hum Dist 2.7/3.5 83953_imp Start: 06-18-2023 Plate Va Olcrn 2.7/3.5 2h R - [id number]_[id number] Start: 06-18-2023 Plate Va M-D-Hum 2.7/3.5 1h L - [id number] Start: 06-18-2023 Screw Lck Va 2.8j02x-N T8 Rcs - [id number]_imp Start: 06-18-2023 Screw Lck Va 2.7x58 S-T T8 Rcs - [id number]_imp Start: 06-18-2023 Screw Lck Va 2.2f86o-C T8 Rcs - [id number]_imp Start: 06-18-2023 Screw Lck Va 2.7o42u-E T8 Rcs - [id number]_imp Start: 06-18-2023 Screw Lck Va 2.1l66x-T T8 Rcs - [id number]_imp Start: 06-18-2023 Screw Lck Va 2.7x50 S-T T8 Rcs - [id number]_imp Start: 06-18-2023 Screw Crtx 3.5x22mm S-T - [id number]_imp Start: 06-18-2023 Screw Crtx 3.5x26mm S-T - [id number]_imp Start: 06-18-2023 Screw Lck Va 2.9e63o-I T8 Rcs - [id number]_imp Start: 06-18-2023 Screw Lck Va 2.2w73t-S T8 Rcs - [id number]_imp Start: 06-18-2023 Screw Lck Va 2.7x56 S-T T8 Rcs - [id number] 83956_imp Start: 06-18-2023 Screw Crtx 3.5x28mm S-T - [id number]_imp Start: 06-18-2023 Screw Crtx 3.5x30mm S-T - [id number]_imp Start: 06-18-2023 Screw Lck Va 2.7l99m-T T8 Rcs - [id number]_imp Start: 06-18-2023 Screw Lck Va 2.3d02y-C T8 Rcs - [id number]_imp Start: 06-18-2023 Goals Date Patient Goal Desired Activity /State Functional Status Date Assessment Result Facility 09-11-2024 Functional status Ambulates [facility] Work Phone: 12-28-2022 Functional status Ambulates [facility] Work Phone: 11-15-2022 Functional status Chair [facility] Work Phone: Mental Status Date Assessment Result Facility 09-11-2024 Cognitive function Voice/Name [facility] Work Phone: 09-10-2024 Cognitive function Voice/Name [facility] Work Phone: 09-08-2024 Cognitive function Voice/Name [facility] Work Phone: 12-28-2022 Cognitive function Voice/Name [facility] Work Phone: 11-18-2022 Cognitive function Level Of Cons ciousness Awake;Alert;Appropriate [facility] Work Phone: 11-15-2022 Cognitive function Appropriate;Cooperativ e [facility] Work Phone: 11-14-2022 Cognitive function Voice/Name [facility] Work Phone: 11-14-2022 Cognitive function Voice/Name [facility] Work Phone: 09-08-2022 Cognitive function Awake;Alert;A ppropriate;Follow s Commands [facility] Work Phone: 02-11-2022 Cognitive function Awake;Alert;Appropriat e [facility] Work Phone: Clinical Notes 02-14-2007 to 09-11-2024 Note Date & Type Note Facility 09-11-2024 Discharge summary [facility] 09-11-2024 Procedure note [facility] 09-11-2024 Discharge summary [facility] 09-11-2024 Discharge summary Note Date/Time September 11, 2024 2:40pm [facility] Medical Records Department [address] [place] [address] Instructions for Home/Discharge Instructions 09/11/24 1214 MR#: [id number] Acct: [id number] Name: EZRA GONZALEZ Rep #:[id number] : 1935 89 From: Matthew carbajal DO PCP: Dr. Kvng Ochoa, Status:ADM MARIELOS Discharge Instructions Diet Discharge [...] Matthew Oro DO>Matthew Oro DO CC: Glenna Jacobosn; Lorelei Pruett; Bala Perez; Janett French MD; [...] Thurman DO; Ashu Leonard MD ~ Signed [facility] Work Phone: 1(873) 470-379506-14-2025 Discharge summary Author Matthew [facility] Note Date/Time September 11, 2024 3:14 pm [facility] Medical Records Department [address] [place] [address] Discharge Summary 09/11/24 1214 MR#: [id number] Acct: [id number] Name: EZRA GONZALEZ Rep #:[id number] : 1935 89 From: Matthew carbajal DO PCP: Dr. Kvng Ochoa DO Status:ADM MARIELOS Location: [place] [address] Providers Date of Admission: 09/10/24 Date of Discharge: 09/11/24 Primary Care Physician: Dr. Kvng Ochoa, DO Consultations 09/10/24 17:16 Consult: Tele-Neurology Routine [...] is an 89-year-old female who presented to [facility] ED on 09/10/2024 with dysarthria. Short hospital [...] (Auto) 72.3 H, Lymph % (Auto) 16.6 L,[place] % (Auto) 9.1, Eos % (Auto) 1.2, [...] Clarity Clear, Urine pH 5.0, Ur Specific [place] 1.010, Urine Protein 30 H, Urine Glucose [...] Catch Urine Culture - Preliminary GNR lactose religious education teacher Radiography Diagnostic Testing: Radiology Impression Head/Neck [...] 3:01 pm with readback verification. Reading Location: [id number] Brain MRI 09/10/24 16:07 IMPRESSION: Atrophy and mild microvascular changes Reading Location: [facility] D/C Instructions DC O2, CPAP, BIPAP Needs [...] Self Care Charges/Coding Visit Charges Inpatient E&M: 08662 Disch Hosp >30min 09/11/24 1444 <Electronically signed [...] DO; Dr. Kvng Ochoa DO ~* Signed [facility] Work Phone: 1(455) 483-974706-14-2025 Progress note Author Lenin Tamez [facility] Note Date/Time September 11, 2024 10:4 1am [facility] Medical Records Department [address] [place] [address] Progress Note - Neurology 09/11/24 1035 MR#: [id number] Acct: [id number] Name: EZRA GONZALEZ Rep #:[id number] : 1935 89 From: Lenin Morel PCP: Dr. 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 MRI brain - no acute stroke. LDL-100 Diagnosis: TIA Plan: Continue coumadin and statin. Check A1c. Follow up EEG. Continue lamictal.Follow up with neurology as an outpatient. OT/PT/MACHINE BASTER. Sign off for now and please call [...] days ago was 2.9 and 2.4 at [place]) and seizure on lamictal (had last GTC on Friday) p/w transient dysarthria. History is obtained from patient. On my exam, NIHSS-0 and patient reports feeling better. She follows with Dr. Juarez with neurology. CT head- no acute intracranial process. 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 MRI brain - no acute stroke. [...] (Auto) 72.3 H, Lymph % (Auto) 16.6 L,[place] % (Auto) 9.1, Eos % (Auto) 1.2, [...] Clarity Clear, Urine pH 5.0, Ur Specific [place] 1.010, Urine Protein 30 H, Urine Glucose (UA) Normal, Urine Ketones Negative, Urine Occult Blood Negative, Urine Nitrite Negative, Urine Bilirubin Negative, Urine Urobilinogen Normal, Ur Leukocyte Esterase 500 H, Urine RBC 0 SEEN, Urine WBC 10-25 SEEN, Ur Squamous Epith Cells 0-5 SEEN, Urine Bacteria RARE, Urine Mucus 0 SEEN 06/13/25 17:08: Troponin T Hi Sens 2 Hr [...] Catch Urine Culture - Preliminary GNR lactose religious education teacher Radiography Diagnostic Testing: Radiology Impression Brain CT 09/10/24 13:55 IMPRESSION: CHRONIC CHANGES. NO ACUTE FINDINGS. Red Alert: Chronic changes. The critical information above was relayed directly by me by telephone to Teri Garcia on 09/10/2024 at 2:05 pm with readback verification. Reading Location: [facility] Head/Neck CTA 09/10/24 13:55 IMPRESSION: Calcific plaque [...] 3:01 pm with readback verification. Reading Location: [facility] Brain MRI 09/10/24 16:07 IMPRESSION: Atrophy and mild microvascular changes Reading Location: [facility] Rhythm Strip Rhythm Strip: A-fib Rate: 75 [...] and with change in RN caregiver. Freq: [id number] Protocol: Activity Type Activity Date Activity User E-sign Co-sign Detail Recorded Client Recorded Date Recorded By Document 09/11/24 09:08 YOVANY [id number] 09/11/24 09:08 YOVANY 09/11/24 09:08 NIH Stroke [...] Cosigner Signature (if applicable): CC: ~ Signed [facility] Work Phone: 1(331) 259-311406-14-2025 [facility] Medical Records Department [address] [place] [address] Discharge Summary 09/11/24 1214 MR#: [id number] Acct: [id number] Name: EZRA GONZALEZ Rep #: [id number] : 1935 89 From: Matthew Oro DO PCP: Dr. Kvng Ochoa, Status:ADM MARIELOS Location: [place] [address] Providers Date of Admission: 09/10/24 Date of Discharge: 09/11/24 Primary Care Physician: Dr. Kvng Ochoa, DO Consultations 09/10/24 17:16 Consult: Tele-Neurology Routine [...] is an 89-year-old female who presented to [facility] ED on 09/10/2024 with dysarthria. Short hospital [...] and non- distended Anastasia (more content not included)...[facility]06-14-2025 Progress note [facility] Medical Records Department [address] [place] [address] Progress Note - Neurology 09/11/24 1035 MR#: [id number] Acct: [id number] Name: EZRA GONZALEZ Rep #:[id number] : 1935 89 From: Lenin Morel PCP: Dr. Kvng Ochoa, DO Status:ADM MARIELOS Location: [place] [address] Assessment and Plan: Neuro Assessment/Plan Telestroke (Audio/Video Encounter) 89 y/o woman with h/o DM, HTN, Afib on coumadin (INR 2 days ago was 2.9 and 2.4 at [place]) and seizure on lamictal (had last GTC on Friday) p/w transient dysarthria. History is obtained from patient. On my exam, NIHSS-0 and patient reports feeling better. She follows with Dr. Juarez with neurology. CT head- no acute intracranial process. 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 MRI brain - no acute stroke. LDL-100 Diagnosis: TIA Plan: Continue coumadin and statin. Check A1c. Follow up EEG. Continue lamictal.Follow up with neurology as an outpatient. OT/PT/MACHINE BASTER. Sign off for now and please call [...] days ago was 2.9 and 2.4 at [place]) and seizure on lamictal (had last GTC on Friday) p/w transient dysarthria. History is obtained from patient. On my exam, NIHSS-0 and patient reports feeling better. She follows with Dr. Juarez with neurology. CT head- no acute intracranial process. 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 MRI brain - no acute stroke. [...] %(Auto) 72.3 H, Lymph % (Auto) 16.6 L,[place] % (Auto) 9.1, Eos % (Auto) 1.2, [...] Clarity Clear, Urine pH 5.0, Ur Specific [place] 1.010, Urine Protein 30 H, Urine Glucose [...] Catch Urine Culture - Preliminary GNR lactose religious education teacher Radiography Diagnostic Testing: Radiology Impression Brain CT 09/10/24 13:55 IMPRESSION: CHRONIC CHANGES. NO ACUTE FINDINGS. Red Alert: Chronic changes. The critical information above was relayed directly by me by telephone to Teri Garcia on 09/10/2024 at 2:05 pm with readback verification. Reading Location: [id number] Head/Neck CTA 09/10/24 13:55 IMPRESSION: Calcific plaque [...] 3:01 pm with readback verification. Reading Location: [facility] Brain MRI 09/10/24 16:07 IMPRESSION: Atrophy and mild microvascular changes Reading [facility] Rhythm Strip Rhythm Strip: A-fib Rate: 75 [...] and with change in RN caregiver. Freq: [id number] Protocol: Activity Type Activity Date Activity User E-sign Co-sign Detail Recorded Client Recorded Date Recorded By Document 09/11/24 09:08 YOVANY [id number] 09/11/24 09:08 YOVANY 09/11/24 09:08 NIH Stroke [...] Cosigner Signature (if applicable): CC: ~ Signed [facility]06-13-2025 History and physical note Author Matthew Oro [facility] Note Date/Time September 10, 2024 5:27 pm [facility] Medical Records Department [address] [place] [address] H&P Exam - Hospitalist 09/10/24 1603 MR#: [id number] Acct: [id number] Name: EZRA GONZALEZ Rep #:[id number] : 1935 89 From: Matthew carbajal DO PCP: Dr. Kvng Ochoa DO Status:ADM MARIELOS Location: [address] 1 HPI - General General Date of Admission: 09/10/24 Date of Service: 09/10/24 Chief Complaint: Dysarthria HPI Narrative EZRA GONZALEZ, is a 89 F who presented to [facility] ED on 09/10/2024 with dysarthria. Patient lives at assisted living at [place]. Has history of seizures and is on [...] acute concerns at this time. 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 Reading Location: [id number] Head/Neck CTA 09/10/24 13:55 IMPRESSION: Calcific plaque [...] 3:01 pm with readback verification. Reading Location: [id number]-S Assessment & Plan Assessment/Plan (1) Difficulty with speech: PLAN: Plan Patient is an 89-year-old female who presented to [facility] ED on 09/10/2024 with dysarthria. 1. Episode [...] 55 minutes. Charges/Coding Visit Charges Inpatient E&M: 23376 Init Hosp L2 09/10/24 1727 <Electronically signed by Matthew Oro DO> Cosigner Signature (if applicable): CC: Dr. Matthew Oro DO; Dr. Kvng Ochoa DO~ Signed [facility] Work Phone: 1(696) 576-750006-13-2025 Discharge summary [facility] Note Date/Time September 10, 2024 4:17 pm [facility] Medical Records Department [address] [place] [address] Emergency Department Summary 09/10/24 MR#: [id number] Acct: [id number] Name: EZRA GONZALEZ Rep #:[id number] : 1935 89 From: Teri Echeverria PCP: [...] son Wilfredo (her eldest son) phone number [phone]. He states that she follows with Dr. 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 He also tells me that he talk to her about 615 this morningand she seemed a little off with her mentation as well as her pronunciation. 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 Reading Location: [id number]-M Head/Neck CTA 09/10/24 13:55 IMPRESSION: Calcific plaque [...] 3:01 pm with readback verification. Reading Location: [id number] Rhythm Strip Rhythm Strip: A-fib Rate: 75 Ectopy: None EKG Initial EKG: Attestation: I personally reviewed and interpreted this EKG as follows: Interpretation: Atrial Fibrillation Comments: Atrial fibrillation at a rate of 75 bpm Left axis deviation Moderate voltage criteria for LVH Normal ST segments Management Discussion w/another healthcare provider: Hospitalist, Pumper Hand and Radiologist Discharge Plan Triage Chief Complaint: Stroke Alert ED Provider: Teri Garcia Dx/Rx/DC Orders Clinical Impression: Difficulty with speech, assisted current use of anticoagulant, Atrial fibrillation, chronic, [...] DO [Primary Care Provider] - Print Language: Gabonese Disposition Disposition: Acute Care Hospital [facility] NIHSS NIHSS 1a. Level of Consciousness: [...] No aphasia; normal 10. Dysarthria: 1 = Gqok-cc-zuawhyyk dysarthria; 11. Extinction and Inattention: 0 - [...] problems, contact your Primary Care Provider. Call [employer] [facility] ([phone]) or report to the closest Emergency Room. Call 911 if necessary. 09/10/24 6698 <Electronically signed by Teri Garcia DO> Cosigner Signature (if applicable): CC: Dr. Kvng Ochoa DO ~ Signed [facility] Work Phone: 1(816) 458-334306-13-2025 History and physical note [facility] Medical Records Department [address] [place] [address] H&P Exam - Hospitalist 09/10/24 1603 MR#: [id number] Acct: [id number] Name: EZRA GONZALEZ Rep #:[id number] : 1935 89 From: Matthew carbajal DO PCP: Dr. Kvng Ochoa DO Status:ADM MARIELOS Location: [place] [id number]- [id number] HPI - General General Date of Admission: 09/10/24 Date of Service: 09/10/24 Chief Complaint: Dysarthria HPI Narrative EZRA GONZALEZ, is a 89 F who presented to [facility] ED on 09/10/2024 with dysarthria. Patient lives at assisted living at [place]. Has history of seizures and is on [...] acute concerns at this time. 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 1. Episode [...] 55 minutes. Charges/Coding Visit Charges Inpatient E&M: 45214 Init Hosp L2 09/10/24 1727 Cosigner Signature (if applicable): CC: Dr. Matthew Oro DO; Dr. Kvng Ochoa DO~ Signed [facility]06-13-[address] [facility] Medical Records Department [address] [place] [address] Emergency Department Summary 09/10/24 MR#: [id number] Acct: [id number] Name: EZRA GONZALEZ Rep #:[id number] : 1935 89 From: Teri Echeverria PCP: [...] son Wilfredo (her eldest son) phone number [phone]. He states that she follows with Dr. 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 He also tells me that he talk to her about 615 this morningand she seemed a little off with her mentation as well as her pr onunciation. 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 Type 2 [...] 72.3 H Lymph % (Auto) 16.6 L [place] % (Auto) 9.1 Eos % (Auto) 1.2 [...] Clarity Clear Urine pH 5.0 Ur Specific [place] 1.010 Urine Protein 30 H Urine Glucose [...] segments Management Discussion w/another healthcare provider: Hospitalist, Pumper Hand and Radiologist Discharge Plan Triage Chief Complaint: Stroke Alert ED Provider: Teri Garcia Dx/Rx/DC Orders Clinical Impression: Difficulty with speech, assisted current use of anticoagulant, Atrial fibrillation, chronic, [...] directed Primary Care Provider: Kvng Ochoa Referrals: vKng Ochoa DO [Primary Care Provider] - Print Language: Gabonese Disposition Disposition: Acute Care Hospital [facility] NIHSS NIHSS 1a. Level of Consciousness: [...] No aphasia; normal 10. Dysarthria: 1 = Zzfg-oh-ambqhvii dysarthria; 11. Extinction and Inattention: 0 - [...] problems, contact your Primary Care Provider. Call [employer] [facility] ([phone]) or report tothe closest Emergency Room. Call 911 if necessary. 09/10/24 1617 Cosigner Signature (if applicable): CC: Dr. Kvng Ochoa DO ~ Signed [facility]06-13-2025 Radiology Diagnostic study note [facility] Imaging Services [address] [place] [address] STROKE CTA Head AND Neck W/Con MR#: [id number] Acct: [id number] Name: EZRA GONZALEZ Rep #: [id number] : 1935 F 89 From: Jian Gipson MD PCP: Dr. Kvng Ochoa DO Status: REG ER Study:STROKE CTA Head AND Neck W/Con Date of Exam: 09/10/24 Exam# [id number] Ordering Dr: Adeel Garcia DO PROCEDURE: STROKE [...] RIGHT Vertebral: Unremarkable. LEFT Vertebral: Unremarkable. Anatomy: [place] anatomy is normal. Aneurysm or [...] 3:01 pm with readback verification. Reading Location: [facility] CC: Dr. Teri Garcia DO; Dr. Kvng Ochoa DO ~ Drying Frame Operator: Signed [facility]06-13-2025 Radiology Diagnostic study note [facility] Imaging Services [address] [place] [id number] STROKE Brain/Head without Cont MR#: [id number] Acct: [id number] Name: EZRA GONZALEZ Rep #: [id number] : 1935 F 89 From: Jian Gipson MD PCP: Dr. Kvng Ochoa DO Status: REG ER Study:STROKE Brain/Head without Cont Date of Exam: 09/10/24 Exam# [id number] Ordering Dr: Adeel Garcia DO PROCEDURE: STROKE [...] 2:05 pm with readback verification. Reading Location: [id number] CC: Dr. Teri Garcia DO; Dr. Kvng Ochoa DO ~ Drying Frame Operator: Signed [facility] [facility] [facility] Medical Records Department [address] [place] [address] Emergency Department Summary 09/08/24 MR#: [id number] Acct: [id number] Name: EZRA GONZALEZ Rep #:[id number] : 1935 89 From: Anoop Blackmon MD [...] Prior similar symptoms: Yes Recent Illness/Hospitalization: No 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 Glucose is slight [id number] with a normal CO2 anion gap. Labs: Laboratory Results - last 24 hr 09/08/24 12:50 WBC 13.6 H RBC 4.40 Hgb 13.8 Hct 41.4 MCV 94.1 MCH 31.4 MCHC 33.3 RDW Std Deviation 45.2 H RDW Coeff of Sumeet 13.2 Plt Count 326 MPV 10.8 Immature Gran % (Auto) 0.400 Neut % (Auto) 75.9 H Lymph % (Auto) 16.2 L [place] % (Auto) 6.6 Eos % (Auto) 0.7 [...] with her neurologist Dr. Juarez Print Language: Gabonese Disposition Disposition: Home, Self Care What to do if you have Problems For any increased pain, shortness of breath, bleeding, nausea or vomiting, chestpain, or any unexpected problems, contact your Primary Care Provider. Call [facility] ([phone]) or report tothe closest Emergency Room. Call 911 if necessary. 09/08/24 1516 Cosigner Signature (if applicable): CC: Dr. 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 Glucose is slight [id number] with a normal CO2 anion gap. Labs: Laboratory Results - last 24 hr 09/08/24 12:50 WBC 13.6 H RBC 4.40 Hgb 13.8 Hct 41.4 MCV 94.1 MCH 31.4 MCHC 33.3 RDW Std Deviation 45.2 H RDW Coeff of Sumeet 13.2 Plt Count 326 MPV 10.8 Immature Gran % (Auto) 0.400 Neut % (Auto) 75.9 H Lymph % (Auto) 16.2 L [place] % (Auto) 6.6 Eos % (Auto) 0.7 [...] with her neurologist Dr. Juarez Print Language: Gabonese Disposition Disposition: Home, Self Care What to do if you have Problems For any increased pain, shortness of breath, bleeding, nausea or vomiting, chestpain, or any unexpected problems, contact your Primary Care Provider. Call [facility] ([phone]) or report to the closest Emergency Room. Call 911 if necessary. 09/08/24 1516 <Electronically signed by Anoop Blackmon MD> Cosigner Signature (if applicable): CC: Dr. Kvng Ochoa MD ~ Signed [facility] Work Phone: 1(192) 340-296204-03-2025 Evaluation note* Diagnosis Onset Date Resolution Status Admit Date Longstanding persistent atrial fibrillation acute July 01, 025 10:35am Essential (primary) hypertension chronic July 01, 2024 10:35am History of coronary artery stent placement February 14, 2007 resolved July 01 025 10:35am [facility] Work Phone: 1(171) 243-543904-03-2025 Evaluation note* Diagnosis Onset Date Resolution Status Admit Date Longstanding persistent atrial fibrillation acute July 01, 10:35am Essential (primary) hypertension chronic July 01, 2024 10:35am History of coronary artery stent placement February 14, 2007 resolved July 01, 025 10:35am Difficulty with speech acute Ju ne 2024 4:03pm [facility] Work Phone: 1(278) 379-578304-03-2025 Evaluation note* Diagnosis Onset Date Resolution Status Admit Date Longstanding persistent atrial fibrillation acute July 01, 025 10:35am Essential (primary) hypertension chronic July 01, 2024 10:35am History of coronary artery stent placement February 14, 2007 resolved July 01 025 10:35am Difficulty with speech acute Ju ne 2024 4:03pm 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 2:04pm [facility] Work Phone: [phone]) [phone] Evaluation note* Diagnosis Onset Date Resolution Status Admit Date Longstanding persistent atrial fibrillation acute July 01, 2 025 10:35am Essential (primary) hypertension chronic July 01, 2024 10:35am History of coronary artery stent placement February 14, 2007 resolved July 01, 025 10:35am Difficulty with speech resolved 2024 4:03pm 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 2:04pm [facility] Work Phone: 1(303) 209-923602-10-2025 Evaluation note* Diagnosis Onset Date Resolution Status Admit Date Dementia acute May 10, 2024 2:34pm Epilepsy acute May 10, 2024 2:34pm Transient ischemic attack resolved May 10, 2024 2:34pm [facility] Work Phone: 1(212) 292-274202-10-2025 Evaluation note* Diagnosis Onset Date Resolution Status Admit Date Dementia acute May 10, 2024 2:34pm Epilepsy acute May 10, 2024 2:34pm Transient ischemic attack resolved May 10, 2024 2:34pm Longstanding persistent atrial fibrillation acute July 01, 025 10:35am Essential (primary) hypertension chronic July 01, 2024 10:35am History of coronary artery stent placement February 14, 2007 resolved July 01, 2024 10:35am [facility] Work Phone: 1(204) 871-556503-22-2024 NoteStart PACC Note Home Health Referral Educated patient on Home Care and services available. Patient offered choice of available HHC and agreeable to PT/OT services with [facility]. Care [...] is noted as yes - consider a AUTOMOBILE SALES CONSULTANT evaluation once the patient returns home. START PATIENT REGISTRATION INFORMATION Order Information Order Signing Physician: Connie Perez APRN * Service Ordered RN ?: No Service Ordered PT ?: Yes Service Ordered OT ?: Yes Service Ordered ST ?: No Service Ordered AUTOMOBILE SALES CONSULTANT?:No Service Ordered FILER REPAIRER?: No Following Physician: ALEXANDRA HAGEN Following Physician Overseeing Physician: ALEXANDRA HAGEN (Required for Residents only) Agreeable to Follow? No Date/Time of Call 06/20/23 2:40 PM, Spoke with: LVM FOR OFFICE-CONFIRMED WITH JOSEP THIS IS HER PHYSICAN AND CAN SEE RECENT NOTES IN [facility] Care Coordination Same Day SOC?: No Primary Care Physician: ALEXANDRA HAGEN Primary Care Physician Primary Care Physician Address: [address] [place] [address] [address] [facility] [address] Visit Instructions: N/A Service Discharge Location Type: Assisted Living Service Facility Name: [facility] Floor Facility: N/A Service Room No: 105 Demographics Patient Last Name: Lisa Patient First Name: Ezra Language/Communication Barrier: NONE Service Address: [address] [place] [address] [address] Service City: [facility] ST: [place] Service ZIP: [address] Service (home) Other phone numbers: No relevant phone numbers on file. Emergency Contact: Extended Emergency Contact Information Primary Emergency Contact: BereketPatito Mobile Relation: Son Chairman & Chief Executive Officer needed? No Secondary Emergency Contact: Ty [place] Mobile Relation: Son Admission Information Admit Date: 06/16/2023 Patient status at discharge: Inpatient Admitting Diagnosis: Closed displaced fracture of medial condyle of right humerus, initial encounter [S42.461A] Caregiver Information Caregiver First Name: NA Caregiver Last Name: NA Caregiver Relationship to Patient NA Caregiver Phone Number: NA Caregiver Notes: N/A Wakie-Tech List No END PATIENT REGISTRATION INFORMATION Pt [...] medications. Discharge Date: 06/20/23 Referral Source-PACC: (Hospital/Unit): [facility] / E7-707/E7-707 A End PACC [facility]03-22-2024 History of Present illness Narrative* Juanjo Villalba RN - 06/20/2023 3:51 PM EDT Dc via DM cot to [facility] with all belongings * Juanjo Villalba RN - 06/20/2023 3:01 PM EDT Called report to Maraynne hinesarcata * Dc Lombardi - 06/20/2023 2:26 PM EDT [facility] Anticoagulation Management Service (RIA) Inpatient Warfarin Consult HPI: Ezra Gonzalez is a 87 y.o. female admitted on 06/16/2023 for Closed displaced fracture of medial condyle of right humerus, initial encounter [S42.131X] History reviewed. No pertinent past medical history. [...] patient can be classified as high risk ([id number] = 8). 2. Monitor for s/s of bleeding and drug interactions. Will adjust dose accordingly 3. RIA will manage while inpatient Dc Lombardi, PharmD Candidate Toshia Sanches, PharmD, BCPS RIA is available daily [phone] via bubl Chat. If no response on bubl Chat then please page [phone]. * Shayne Fonseca MD - 06/20/2023 6:05 [...] off at this time. Please page resident transport conductor on Secure Chat with concerns or should [...] original note were not included. PHYSICAL THERAPY [facility] Initial Evaluation Name/MRN: Ezra Gonzalez ([id number]) Evaluation Date: 06/19/2023 Date of : 1935 Admission Date: 06/16/2023 1:38 PM Age: 87 y.o. Room/Bed: E7-457/E7706 A Discharge Recommendation: Home with Home health PT (return to [place]) Equipment Needed: No Assessment IMPRESSION: 87 y.o. pt [facility] to [facility] for closed fracture RUE, s/p ORIF R humerus 06/17. They were Min A for bed mobility, Min A for transfers, and Min A for ambulation. Pt limited d/t balance. If from [place] where she can receive Min A for all ADLs and mobility. Would recommend return to [place] and [facility] PTat discharge. Diagnosis: closed fracture RUE, [...] correction Ambulation Ambulation 1 Assistive device(s) used: FILER REPAIRER Assist level: Min Assist Distance (ft): 15' [...] Raw Score (No Stairs) : 18 JH-HLM -HLM Score: Walked 25 ft or more (i.e. [...] Minutes 27 Timed Code Treatment Minutes: (mod néstoral, 1 FA) Maryanne Neumann PT Patient's Physical Therapy Plan of Care supervision is transferred to a [facility] Therapy Services Physical Therapist. Goals and/or treatment plan was established in collaboration with patient/family/other representatives. * Enedelia Sanches [facility] - 06/19/2023 1:50 PM EDT [facility] Anticoagulation Management Service (RIA) Inpatient Warfarin Consult HPI: Ezra Gonzalez is a 87 y.o. female admitted on 06/16/2023 for Closed displaced fracture of medial condyle of right humerus, initial encounter [S42.268T] History reviewed. No pertinent past medical history. [...] patient can be classified as high risk ([id number] = 8). 2. Monitor for s/s of bleeding and drug interactions. Will adjust dose accordingly 3. RIA will manage while inpatient Dc Lombardi, PharmD Candidate Toshia Sanches, PharmD, BCPS RIA is available daily [phone] via bubl Chat. If no response on bubl Chat then please page [phone]. * Kavon Diallo OT - 06/19/2023 11:54 AM EDT Images from the original note were not included. OCCUPATIONAL THERAPY [facility] Initial Evaluation Name/MRN: Ezra Gonzalez ([id number]) Evaluation Date: 06/19/2023 Date of : 1935 Admission Date: 06/16/2023 1:38 PM Age: 87 y.o. [facility] Discharge Recommendation: Continue to assess pending [...] of Care supervision is transferred to a [facility] Therapy Services Occupational Therapist. Goals and/or treatment plan was established in collaboration with patient/family/other representatives. * Connie Perez, BEAM SAW OPERATOR - ONCOLOGY PHARMACIST - 06/19/2023 9:52 AM EDT Images from [...] Emergency Contact: Patito [place] Mobile Relation: Son Chairman & Chief Executive Officer needed? No Secondary Emergency Contact: Ty [place] Mobile Relation: Son Connie Perez APRN - SUZI Division of Hospitalist Medicine Acute [facility] * Huma Tavarez MD - 06/19/2023 6:14 [...] be monitored and followed by the diet aircraft maintenance technician. Ele Butcher DT * Louisa Cespedes OT - 06/18/2023 8:26 AM EDT Images from the original note were not included. OCCUPATIONAL THERAPY [facility] Name/MRN: Ezra Gonzalez ([id number]) Date: 06/18/2023 OT eval and treat order received. Patient chart reviewed. Per Ortho note, Plan for ORIF od R distal humerus. Will hold evaluation till after surgery. Louisa Cespedes OT * JANNETTE Hall CNP - 06/18/2023 8:00 AM EDT Images from the original note were not included. Hospitalist Progress Note 06/18/2023 Subjective: Admit Date: 06/16/2023 PCP: No primary care provider on file. Room#: E7-657/Q8-471 A BRIEF HOSPITAL COURSE: Ezra is a [...] Emergency Contact: Patito [place] Mobile Relation: Son Chairman & Chief Executive Officer needed? No Secondary Emergency Contact: Ty [place] Mobile Relation: Son Connie JANNETTE Perez CNP Division of Hospitalist Medicine Acute [facility] * Maryanne Neumann PT - 06/18/2023 7:27 AM EDT Images from the original note were not included. PHYSICAL THERAPY [facility] Name/MRN: Ezra Gonzalez ([id number]) Date: 06/18/2023 PT orders received and chart [...] tomorrow, 06/17. Ok for diet today. NPO @ID. Keep splint C/D/I. Evette Viera MD Orthopaedic Surgery, PGY-5 [phone] * Connie Perez, BEAM SAW OPERATOR - ONCOLOGY PHARMACIST - 06/17/2023 7:46 AM EDT Images from [...] Emergency Contact: Patito [place] Mobile Relation: Son Chairman & Chief Executive Officer needed? No Secondary Emergency Contact: Ty [place] Mobile Relation: Son JANNETTE Hall CNP [facility] * Shayne Fonseca MD - 06/17/2023 6:11 [...] + AIN/PIN/ulnar nerve functions documented in this [facility]03-22-2024 Miscellaneous Notes* Care Coordination - Unknown Case Management - 06/20/2023 2:58 PM EDT Patient Choice Patient Name: EZRA GONZALEZ Date of : 1935 All Providers Sent Referral Name: [facility] Phone: [phone] Address: [address] [place] [address] * Home Care - Vivian Bills RN - 06/20/2023 2:40 PM EDT Start PACC Note Home Health Referral Educated patient on Home Care and services available. Patient offered choice of available HHC and agreeable to PT/OT services with [facility]. Care Types: [...] is noted as yes - consider a AUTOMOBILE SALES CONSULTANT evaluation once the patient returns home. START PATIENT REGISTRATION INFORMATION Order Information Order Signing Physician: Connie Perez APRN * Service Ordered RN ?: No Service Ordered PT ?: Yes Service Ordered OT ?: Yes Service Ordered ST ?: No Service Ordered AUTOMOBILE SALES CONSULTANT?:No Service Ordered FILER REPAIRER?: No Following Physician: ALEXANDRA HAGEN Following Physician Overseeing Physician: ALEXANDRA HAGEN (Required for Residents only) Agreeable to Follow? No Date/Time of Call 06/20/23 2:40 PM, Spoke with: LVM FOR OFFICE-CONFIRMED WITH FIDEKAMARI THIS IS HERPHYSICAN AND CAN SEE RECENT NOTES IN [facility] Care Coordination Same Day SOC?: No Primary Care Physician: ALEXANDRA HAGEN Primary Care Physician Primary Care Physician Address: [address] [place] [address] [address] [facility] [address] Visit Instructions: N/A Service Discharge Location Type: Assisted Living Service Facility Name: [facility] Floor Facility: N/A Service Room No: 105 Demographics Patient Last Name: Lisa Patient First Name: Ezra Language/Communication Barrier: NONE Service Address: [address] [place] [address] [address] Service City: [facility] ST: [place] Service ZIP: [address] Service (home) Other phone numbers: No relevant phone numbers on file. Emergency Contact: Extended Emergency Contact Information Primary Emergency Contact: GillesrodriguePatito Mobile Relation: Son Chairman & Chief Executive Officer needed? No Secondary Emergency Contact: GillesrodrigueTy Mobile Relation: Son Admission Information Admit Date: 06/16/2023 Patient status at discharge: Inpatient Admitting Diagnosis: Closed displaced fracture of medial condyle of right humerus, initial encounter [S42.464S] Caregiver Information Caregiver First Name: NA Caregiver Last Name: NA Caregiver Relationship to Patient NA Caregiver Phone Number: NA Caregiver Notes: N/A Wakie-ID Quantique List No END PATIENT REGISTRATION INFORMATION Pt [...] medications. Discharge Date: 06/20/23 Referral Source-PACC: (Hospital/Unit): [facility] / E7-707/E7-707 A End [...] pt order lunch. 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 . * Care Coordination - Shikha Gray RN - 06/20/2023 11:01 AM EDT I SPOKE WITH DONOVAN, STAFF NURSE ICU RESOURCE TEAM AT [facility]. THEY CAN TAKE PT BACK TODAY. THEY CAN PROVIDE TRANSPORTATION BACK TO FACILITY AROUND 3 PM. AWARE PT WILL NEED PT AT FACILITY, THEY USE [facility], DID LET HC LIAISON NOW. WENT TO [...] PM EDT Date: 06/16/2023 - 06/18/2023 Location: [facility] OR Name: Ezra Gonzalez, : 1935, Diagnosis Pre-op Diagnosis * Closed displaced fracture of medial condyle of right humerus, initial encounter [S42.271A] Post-op Diagnosis * Closed displaced fracture of medial condyle of right humerus, initial encounter [S42.461A] Procedures OPEN REDUCTION INTERNAL FIXATION RIGHT DISTAL HUMERUS 13938 - [place] [employer] HUMERAL SHFT FX W/PLATE/SCREWS W/WOCERCLAGE Surgeons * Benitez Givens - Primary Procedure Summary Anesthesia: * No anesthesia type entered * ASA: III Estimated Blood Loss: Minimal Drains: * None in log * Staff: Gas Engine Operator: Vivian Herrera RN Scrub Person: Linda [...] Limits Permission given to speak with patient patient portal representative/caregiver as indicated: No Confirmation of Payer with patient/family: Yes Payer Name: [facility] : No Confirmation of Primary Care [...] rest and pain control documented in this [facility]03-22-2024 Note* Care Coordination - Unknown Case Management - 06/20/2023 2:58 PM EDT Patient Choice Patient Name: EZRA GONZALEZ Date of : 1935 All Providers Sent Referral Name: [facility] Phone: [phone] Address: [address] [place] [address] [id number]* Care Coordination - Unknown Case Management - 06/20/2023 2:58 PM EDT Patient Choice Patient Name: EZRA GONZALEZ Date of : 1935 All Providers Sent Referral Name: [facility] Phone: [phone] Address: [address] [place] [address] [id number]* Home Care - Vivian Bills RN - 06/20/2023 2:40 PM EDT Start PACC Note Home Health Referral Educated patient on Home Care and services available. Patient offered choice of available HHC and agreeable to PT/OT services with [facility]. Care [...] is noted as yes - consider a AUTOMOBILE SALES CONSULTANT evaluation once the patient returns home. START PATIENT REGISTRATION INFORMATION Order Information Order Signing Physician: Connie Perez APRN * Service Ordered RN ?: No Service Ordered PT ?: Yes Service Ordered OT ?: Yes Service Ordered ST ?: No Service Ordered AUTOMOBILE SALES CONSULTANT?:No Service Ordered FILER REPAIRER?: No Following Physician: ALEXANDRA HAGEN Following Physician Overseeing Physician: ALEXANDRA HAGEN (Required for Residents only) Agreeable to Follow? No Date/Time of Call 06/20/23 2:40 PM, Spoke with: BRYAN FOR OFFICE-CONFIRMED WITH [facility] THIS IS HERPHYSICAN AND CAN SEE RECENT NOTES IN [facility] Care Coordination Same Day SOC?: No Primary Care Physician: ALEXANDRA HAGEN Primary Care Physician Primary Care Physician Address: [address] [place] [address] [address] / [facility] [address] Visit Instructions: N/A Service Discharge Location Type: Assisted Living Service Facility Name: [facility] Floor Facility: N/A Service Room No: 105 Demographics Patient Last Name: Lisa Patient First Name: Ezra Language/Communication Barrier: NONE Service Address: [address] [place] [address] [address] Service City: [facility] ST: [place] Service ZIP: [address] Service (home) Other phone numbers: No relevant phone numbers on file. Emergency Contact: Extended Emergency Contact Information Primary Emergency Contact: Patito [place] Mobile Relation: Son Chairman & Chief Executive Officer needed? No Secondary Emergency Contact: Ty [place] Mobile Relation: Son Admission Information Admit Date: 06/16/2023 Patient status at discharge: Inpatient Admitting Diagnosis: Closed displaced fracture of medial condyle of right humerus, initial encounter [S46.487P] Caregiver Information Caregiver First Name: NA Caregiver Last Name: NA Caregiver Relationship to Patient NA Caregiver Phone Number: NA Caregiver Notes: N/A HITRoadmap Hi-Tech List No END PATIENT REGISTRATION INFORMATION [...] medications. Discharge Date: 06/20/23 Referral Source-PACC: (Hospital/Unit): [facility] / E7-707/E7-707 A End PACC Note [id number] [facility]* Home Care - Vivian Bills RN - 06/20/2023 2:40 PM EDT Start PACC Note Home Health Referral Educated patient on Home Care and services available. Patient offered choice of available HHC and agreeable to PT/OT services with [facility]. Care Types: [...] is noted as yes - consider a AUTOMOBILE SALES CONSULTANT evaluation once the patient returns home. START PATIENT REGISTRATION INFORMATION Order Information Order Signing Physician: Connie Perez APRN * Service Ordered RN ?: No Service Ordered PT ?: Yes Service Ordered OT ?: Yes Service Ordered ST ?: No Service Ordered AUTOMOBILE SALES CONSULTANT?:No Service Ordered FILER REPAIRER?: No Following Physician: ALEXANDRA HAGEN Following Physician Overseeing Physician: ALEXANDRA HAGEN (Required for Residents only) Agreeable to Follow? No Date/Time of Call 06/20/23 2:40 PM, Spoke with: BRYAN FOR OFFICE-CONFIRMED WITH JOSEP THIS IS HERPHYSICAN AND CAN SEE RECENT NOTES IN [facility] Care Coordination Same Day SOC?: No Primary Care Physician: ALEXANDRA HAGEN Primary Care Physician Primary Care Physician Address: [address] [facility] [address] [facility] [address] Visit Instructions: N/A Service Discharge Location Type: Assisted Living Service Facility Name: [facility] Floor Facility: N/A Service Room No: 105 Demographics Patient Last Name: Lisa Patient First Name: Ezra Language/Communication Barrier: NONE Service Address: [address] [facility] [address] Service City: [facility] ST: [place] Service ZIP: [address] Service (home) Other phone numbers: No relevant phone numbers on file. Emergency Contact: Extended Emergency Contact Information Primary Emergency Contact: Patito [place] Mobile Relation: Son Chairman & Chief Executive Officer needed? No Secondary Emergency Contact: Ty [place] Mobile Relation: Son Admission Information Admit Date: 06/16/2023 Patient status at discharge: Inpatient Admitting Diagnosis: Closed displaced fracture of medial condyle of right humerus, initial encounter [S46.166W] Caregiver Information Caregiver First Name: NA Caregiver Last Name: NA Caregiver Relationship to Patient NA Caregiver Phone Number: NA Caregiver Notes: N/A Wakie-Tech List No END PATIENT REGISTRATION INFORMATION Pt [...] medications. Discharge Date: 06/20/23 Referral Source-PACC: (Hospital/Unit): [facility] / E7-707/E7-707 A End PACC Note [id number] NoteHospitalist Discharge Summary Ezra Gonzalez : 1935 [...] primary care provider Schedule (more content not included)...[facility]03-22-2024 Note* Care Coordination - SELINA Magaña [...] pt order lunch. 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 . [facility] HospitalEdmxqe26-06-5591 Note* Care Coordination - SELINA Magaña - [...] pt order lunch. 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 . [facility] HospitalQmvzkn98-99-9559 Note* Care Coordination - Shikha Gray RN - 06/20/2023 11:01 AM EDT I SPOKE WITH DONOVAN, STAFF NURSE ICU RESOURCE TEAM AT [facility]. THEY CAN TAKE PT BACK TODAY. THEY CAN PROVIDE TRANSPORTATION BACK TO FACILITY AROUND 3 PM. AWARE PT WILL NEED PT AT FACILITY, THEY USE [facility], DID LET HC LIAISON NOW. WENT TO [...] SECURE CHAT WITH CONNIE PEREZ REGARDING THIS. [facility] HospitalKakoov41-27-5502 Note* Care Coordination - Shikha Gray RN - 06/20/2023 11:01 AM EDT I SPOKE WITH DONOVAN, STAFF NURSE ICU RESOURCE TEAM AT [facility]. THEY CAN TAKE PT BACK TODAY. THEY CAN PROVIDE TRANSPORTATION BACK TO FACILITY AROUND 3 PM. AWARE PT WILL NEED PT AT FACILITY, THEY USE [facility], DID LET HC LIAISON NOW. WENT [...] SECURE CHAT WITH CONNIE PEREZ REGARDING THIS. [facility] HospitalDwepmn55-33-5766 Hospital course Narrative* Connie Perez, JANNETTE - ONCOLOGY PHARMACIST - 06/20/2023 10:18 AM EDT Images from [...] as possible for a visit As needed [facility] Orthopedics Go to Appointment scheduled 06/26/23 at 10:[address] Givens. [facility] Complexity of Follow up: [x] Moderate Complexity: follow up within 7-14 calendar days (41780) [] Severe Complexity: follow up within 7 calendar days (46639) Follow up Testing, Pending results or Referrals [...] Connie Perez APRN - SUZI [facility] 06/20/2023, 1:11 PM documented in this [facility]03-22-2024 [facility] Progress Note ASSESSMENT AND [...] off at this time. Please page resident transport conductor on Secure Chat with concerns or should [...] in all distributions -Motor function intact to AIN/PIN/[facility]ar[facility]24 Note PHYSICAL THERAPY [facility] Initial Evaluation Name/MRN: Ezra Gonzalez ([id number]) Evaluation Date: 06/19/2023 Date of : 1935 Admission Date: 06/16/2023 1:38 PM Age: 87 y.o. Room/Bed: E7-707/E7-707 A Discharge Recommendation: Home with Home health PT (return to [place]) Equipment Needed: No Assessment IMPRESSION: 87 y.o. pt admitted to [facility] for closed fracture RUE, s/p ORIF R humerus 06/17. They were Min A for bed mobility, Min A for transfers, and Min A for ambulation. Pt limited d/t balance. If from [place] where she can receive Min A for all ADLs and mobility. Would recommend return to CT and [facility] PT at discharge. Diagnosis: closed fracture [...] correction Ambulation Ambulation 1 Assistive device(s) used: FILER REPAIRER Assist level: Min Assist Distance (ft): 15' [...] Raw Score (No Stairs) : 18 [facility] Score: Walked 25 ft or more [...] prepare for ambulation. Start: 06/19/23 Expected End: 04/18/24 Therapy Time Individual Co-treatment Time In 1404 Time Out 1431 Minutes 27 Timed Code Treatment Minutes: (mod eval, 1 FA) Dillon (more content not included)...[facility]03-21-2024 Note* Care Coordination - Shikha Gray RN - 06/19/2023 2:05 PM EDT DAY #1 S/P ORIF OF RIGHT ARM. WAITING FOR PT/OT EVALS FOR DC PLANNING. [facility] HospitalIghxjw95-02-1672 Note* Care Coordination - Shikha Gray RN - 06/19/2023 2:05 PM EDT DAY #1 S/P ORIF OF RIGHT ARM. WAITING FOR PT/OT EVALS FOR DC PLANNING. [facility] HospitalLrlbnp76-93-8356 NoteOCCUPATIONAL THERAPY [facility] Initial Evaluation Name/MRN: Ezra Gonzalez ([id number]) Evaluation Date: 06/19/2023 Date of : 1935 Admission Date: 06/16/2023 1:38 PM Age: 87 y.o. Room/Bed: [facility]707/[facility] A Discharge Recommendation: Continue to assess pending [...] 06/19/23 Expected End: 07/17/23 (more content not included)...[facility]03-21-2024 Note Hospitalist Progress Note 06/19/2023 Subjective: Admit Date: 06/16/2023 PCP: No primary care provider on file. Room#: E7-847/-334 A BRIEF HOSPITAL COURSE: Ezra is a [...] Eating and drinking fair, looking forward to [place]. Understands likely not back to [place] as [...] Full Code Anticipated Dischar (more content not included)...[facility] 06-19-2023 [facility] Progress Note ASSESSMENT AND [...] limited 2/[address] [facility] 06-18-2023 NotePatient: Ezra Gonzalez Procedure Summary Date: 06/18/23 Room / Location: [address] Operating Room Anesthesia Start: 1541 Anesthesia [...] Vitals Value Taken Time BP 116/67 06/18/23 191 Temp 97.3 06/18/23 1921 Pulse 83 06/18/231919 [...] discharged once all PACU criteria has been met.[facility]03-20-2024 NotePatient: Ezra Gonzalez Procedure Summary Date: 06/18/23 Room / Location: [address] Operating Room Anesthesia Start: 1541 Anesthesia [...] BP 116/67 06/18/23 1913 Temp 97.3 06/18/23 192 Pulse 79 06/18/231918 [...] Allowed opportunity for questions and acknowledgement of understanding.[facility]03-20-2024 Note* Perioperative Nursing Note - Irina Khan RN - 06/18/2023 8:11 PM EDT Pt states no need to contact family. RN on floor states she will call pt's son,. [facility] HospitalIfnuuo19-13-6150 Note* Perioperative Nursing Note - Irina Khan RN - 06/18/2023 8:11 PM EDT Pt states no need to contact family. RN on floor states she will call pt's son,. [facility] HospitalVwyeyq39-85-4176 NoteAirway Date/Time: 06/18/2023 3:56 PM Urgency: scheduled General Information and Staff Patient location during procedure: Procedural Resident/SIGN LANGUAGE INTERPRETER: Sae Lora CRNA Performed: SIGN LANGUAGE INTERPRETER Indications and Patient Condition Indications for airway [...] (cm): 21 Number of attempts at approach: [address] [place], [place] [address]33403-20-2024 Note Peripheral IV Date/Time: 06/18/2023 4:00 PM Inserted by: JANNETTE Ivey CRNA Placement Needle size: 20 G Laterality: left Location: upper arm. Local anesthetic: none Site prep: alcohol Technique: ultrasound guided Attempts: [address] [place], [place] [address]33[address]-20-2024 NotePeripheral Block Time Out: 06/18/2023 3:28 PM Patient location during procedure: Procedural Start time: 06/18/2023 3:28 PM End time: 06/18/2023 3:32 PM Reason for block: at surgeon's request and post-op pain management Staffing Performed: WAQAS Resident/SIGN LANGUAGE INTERPRETER: JANNETTE Ivey CRNA Preanesthetic Checklist Completed: patient [...] No paresthesias reported by patient during injectionMedications tucVQIWVjleyr-uzyviagczao-uvzgdfmtzbg (TAP) syringe - Injection 30 mL - 06/18/2023 3:28:00 [facility]03-20-2024 NotePatient: Ezra Gonzalez Procedure Information Date/Time: 06/18/23 1530 Procedure: OPEN REDUCTION INTERNAL FIXATION RIGHT DISTAL HUMERUS (Right: Arm Upper) - requesting 330, if can't go at 330 will consider friday Location: [facility] OR [address] [place] [address] Operating Room Surgeons: Benitez Givens MD Relevant [...] Emergency Contact: Patito Cuba Mobile Relation: Son Chairman & Chief Executive Officer needed? No Secondary Emergency Contact: Ty Cuba [...] (78.9 kg) Mental Status: {MITCHEL Patient Mental Status:88661} IV Access: {MITCHEL IV Access:45832} Nursing Mobility/ADLs: Walking {MALLY ADL:::Independent} Transfer {MALLY ADL:::Independent} Bathing {MALLY ADL:::Independent} Dressing {MALLY ADL:::Independent} Toileting {MALLY ADL:::Independent} Feeding {MALLY ADL:::Independent} Manager Eligibility {MALLY ADL:::Independent} Med Delivery {yes/no:83758} Wound Care Documentation and Therapy: Wound/Incision 06/18/23 Incision Arm Anterior;Right;Upper (Active) Site Assessment Clean;Dry 06/19/232147 Treatments Sling 06/19/232147 Primary Dressing Xeroform 06/19/23 1024 Dressing Status Clean, dry & intact 06/19/232147 Number of days: 1 Elimination: Continence: Bowel: {yes/no:44394} Bladder: {yes/no:83789} Urinary Catheter: {MITCHEL Urinary Catheter:23821} Colostomy/Ileostomy/Ileal Conduit: {YES / NO:} Date of Last BM: No intake or output data in the 24 hours ending 06/20/23 1025 I/O last 3 completed shifts: In: 711 (9 mL/kg) [P.O.:280; I.V.:114 (1.4 mL/kg); IV Piggyback:317] Out: 600 (7.6 mL/kg) [Urine:350 (0.1 mL/kg/hr); Blood:250] Weight: 78.9 kg Safety Concerns: {MITCHEL Safety Concerns:11820} Impairments/Disabilities: {MITCHEL Impairments/Disabilities:93266} Nutrition Therapy: Current Nutrition Therapy: {MITCHEL Diet List:76329} Routes of Feeding: {routes of feedin} Liquids: {liquid consistency:59524} Daily Fluid Restriction: {daily fluid restriction:92204} Last Modified Barium Swallow with Video (Video Swallowing Test): {done not done:45338} Treatments at the Time of Hospital Discharge: Respiratory Treatments: Oxygen Therapy: {Therapy; copd oxygen:43832} Ventilator: {MITCHEL Ventilator:33631} Rehab Therapies: {GEN THERAPY DISCIPLINE SCAL:3088446} Weight Bearing Status/Restrictions: {POD WEIGHT BEARIN} Other Medical Equipment (for information only, NOT a DME order): {Assistive Devices DME:39542} Other Treatments: Patient's personal belongings (please select all that are sent with patient): {MITCHEL Patient Belongings:00953} RN SIGNATURE: {E-signature:44648} CASE MANAGEMENT/SOCIAL WORK SECTION Inpatient Status Date: 06/16/23 Readmission Risk Assessment Score: @READMISSIONRISKDETAILS@ Discharging to Facility/ Agency Discharging to Facility/ Agency Name: [facility] Address: [address] [place] [address] Name: [facility] Address:[address] [place] [address] ~28.4 dc Fax: Dialysis Facility (if applicable) Name: Address: Dialysis Schedule: Phone: Fax: Wireless Store Manager/Precision Optics Technician signature: ICIAN SECTION Prognosis: good Condition at [...] in H&P PHYSICIAN SIGNATURE: documented in this [facility]03-20-2024 Note* Brief Op Note - Lexa Aparicio MD - 06/18/2023 3:42 PM EDT Date: 06/16/2023 - 06/18/2023 Location: [facility] OR Name: Ezra Gonzalez, : 1935, Diagnosis Pre-op Diagnosis * Closed displaced fracture of medial condyle of right humerus, initial encounter [S42.381G] Post-op Diagnosis * Closed displaced fracture of medial condyle of right humerus, initial encounter [S42.897G] Procedures OPEN REDUCTION INTERNAL FIXATION RIGHT DISTAL HUMERUS 61117 - [place] [employer] HUMERAL SHFT FX W/PLATE/SCREWS W/WOCERCLAGE Surgeons * Benitez Givens - Primary Procedure Summary Anesthesia: * No anesthesia type entered * ASA: III Estimated Blood Loss: Minimal Drains: * None in log * Staff: Gas Engine Operator: Vivian Herrera RN Scrub Person: Linda [...] Givens in 2 weeks -Ortho to follow. [employer] Phone: 1(846) 362-943603-20-2024 Note* Brief Op Note - Lexa Aparicio MD - 06/18/2023 3:42 PM EDT Date: 06/16/2023 - 06/18/2023 Location: [facility] OR Name: Ezra Gonzalez, : 1935, Diagnosis Pre-op Diagnosis * Closed displaced fracture of medial condyle of right humerus, initial encounter [S42.655H] Post-op Diagnosis * Closed displaced fracture of medial condyle of right humerus, initial encounter [S42.968W] Procedures OPEN REDUCTION INTERNAL FIXATION RIGHT DISTAL HUMERUS 82739 - [place] [employer] HUMERAL SHFT FX W/PLATE/SCREWS W/WOCERCLAGE Surgeons * Benitez Givens - Primary Procedure Summary Anesthesia: * No anesthesia type entered * ASA: III Estimated Blood Loss: Minimal Drains: * None in log * Staff: Gas Engine Operator: Vivian Herrera RN Scrub Person: Linda [...] Givens in 2 weeks -Ortho to follow. [employer] Work Phone: 1(662) 537-318603-20-2024 Note* Perioperative Nursing Note - Deisy Gonzalez RN - 06/18/2023 3:29 PM EDT Patients wallet and watch locked up with security. OR notified patient states she has latex allergy Patients purse and glasses taken to pacu [facility] CenterLikewise SoftwareCckfcr06-27-8048 Note* Perioperative Nursing Note - Deisy Gonzalez RN - 06/18/2023 3:29 PM EDT Patients wallet and watch locked up with security. OR notified patient states she has latex allergy Patients purse and glasses taken to pacu [facility] CenterLike[facility] SoftwareWoqtdx36-21-8905 Note* Care Coordination - Sihkha Gray RN - 06/18/2023 1:03 PM EDT Care Managment Initial Assessment Date: 06/18/2023 Patient Name: Ezra Gonzalez : 1935 Patient Information Source of Information: Patient Cognition/Language: WFL - Within Functional Limits Permission given to speak with patient patient portal representative/caregiver as indicated: No Confirmation of Payer with patient/family: Yes Payer Name: [facility] : No Confirmation of Primary Care [...] Assistance Provider Meal Prep Assistance Provider Name: CT STAFF Laundry/Cleaning: Assistance Provider Laundry/Cleaning Assistance Provider [...] WILL CONTINUE TO FOLLOW. Shikha Gray RN [facility] Mpxjly75-50-7320 Note* Care Coordination - Shikha Gray RN - 06/18/2023 1:03 PM EDT Care Managment Initial Assessment Date: 06/18/2023 Patient Name: Ezra Gonzalez : 1935 Patient Information Source of Information: Patient Cognition/Language: WFL - Within Functional Limits Permission given to speak with patient patient portal representative/caregiver as indicated: No Confirmation of Payer with patient/family: Yes Payer Name: [facility] [place]: No Confirmation of Primary Care Physician: Confirmed [...] WILL CONTINUE TO FOLLOW. Shikha Gray RN [facility] HospitalQnwsbl47-25-1048 NoteHospitalist Progress Note 06/18/2023 Subjective: Admit Date: 06/16/2023 PCP: No primary care provider on file. Room#: E7-394/O2-538 A BRIEF HOSPITAL COURSE: Ezra is a [...] Emergency Contact: Patito Cuba Mobile Relation: Son Chairman & Chief Executive Officer needed? No Se (more content not included)...[facility]03-20-2024 Note Department of Orthopedic Surgery Progress [...] radial/median/ulnar/axillary nerve distributions -Motor + AIN/PIN/ulnar nerve functionsCorewell Health [facility]03-19-2024 Plan of care note* Care Plan - Yvan Sepulveda RN - 06/17/2023 11:35 PM EDT The patient is Moderately Stable - Low risk of patient condition declining or worsening The patient's goals for the shift include rest and pain control The clinical goals for the shift include rest and pain control [facility]Birwbg35-75-5634 Nurse Note* Yvan Sepulveda RN - 06/17/2023 9:22 PM EDT Patient home medication list updated, provider made aware. [facility] HospitalZdbsol00-73-5236 Nurse Note* Yvan Sepulveda RN - 06/17/2023 9:22 PM EDT Patient home medication list updated, provider made aware. documented in this [facility]03-19-2024 Emergency department Note* Di Reyna RN - 06/17/2023 11:52 AM EDT Patient resting in bed at this time, equal unlabored respirations noted and no acute distress, callbell within reach Di Reyna RN 06/17/23 1153 [facility] HospitalUbqkyd66-92-4700 Emergency department Note* Di Reyna RN - [...] US IV line. Juanjo Pringle RN 06/16/23 9496 * NADIA Ruiz - 06/16/2023 12:38 PM EDT Images from the original note were not included. EMERGENCY DEPARTMENT ENCOUNTER Pt Name: Ezra Gonzalez Birthdate 1935 Date of evaluation: 06/16/2023 ED Provider: NADIA Ruiz CHIEF COMPLAINT Chief Complaint Patient presents with Arm Injury Pt arrives via physician's ambulance from [facility] with complaints of right elbow fracture.Patient was [...] injury anywhere else. Patient was evaluated at [facility] emergency department prior to arrival and was noted to have a distal humerus fracture. Patient was transferred to [facility] ED for orthopedic consultation. Patient denies [...] Culture. Procedure Abnormality Status --------- ------ Complete Urinalysis[[id number]] Please view results for these tests on [...] right arm injury. Patient was seen at [facility] prior to arrival was noted to have a distal humerus fracture. Patient transferred to [facility] ED for orthopedic consultation. Nursing notes [...] screen, x-ray right elbow. CT head from [place] ED -shows no signs of acute cranial abnormalities. CXR from [place] ED prior to arrival -blunting of bilateral [...] 06/16/2023 12:38 PM EDT Emergency Department Encounter [facility] EMERGENCY DEPT Patient: Ezra Gonzalez : [...] [employer] Sae Conde MD 06/16/23 1620 documented in this [facility]03-19-2024 Emergency department Note* Alia Foster RN - 06/17/2023 10:00 AM EDT Pt O2 desaturating to mid 80s after receiving dilaudid IV. Pt placed on 2L NC and immediately back up to 95%. notified Alia Foster RN 06/17/23 1031 [facility] HospitalRbjpbt96-75-7947 NoteHospitalist Progress Note 06/17/2023 Subjective: Admit Date: [...] does not feel safe going back to CT at this time. Since patient staying ortho [...] Emergency Contact: Patito Cuba Mobile Relation: Son Chairman & Chief Executive Officer needed? No Secondary Emergency Contact: Ty Cuba Mobile Relation: Son Connie Perez, JANNETTE - ONCOLOGY PHARMACIST Division of Hospitalist Medicine [facility]03-19-2024 NoteDepartment of Orthopedic Surgery Progress Note [...] ulnar nerve distributions -Motor + AIN/PIN/ulnar nerve functionsCorewell Health [facility]03-18-2024 Emergency department Note* Juanjo Pringle RN [...] US IV line. Juanjo Pringle RN 06/16/23 2013 [facility] HospitalStfwfi31-90-2502 NoteAttending History and Physical Admit Date: 06/16/2023 [...] does not feel safe going back to CT at this time. Since patient staying ortho [...] Pain control am labs, (more content not included)...[facility]03-18-2024 History and physical note* Jayshree Cortez [...] Emergency Contact: Patito Cuba Mobile Relation: Son Chairman & Chief Executive Officer needed? No Secondary Emergency Contact: Ty Cuba Mobile Relation: Son Jayshree Cortez MD Division of Hospitalist Medicine [facility] [employer] Phone: 1(947) 322-902203-18-2024 History and physical note* Jayshree Cortez MD [...] does not feel safe going back to CT at this time. Since patient staying ortho [...] Emergency Contact: Patito Cuba Mobile Relation: Son Chairman & Chief Executive Officer needed? No Secondary Emergency Contact: Ty Cuba Mobile Relation: Son Jayshree Cortez MD Division of Hospitalist Medicine [facility] documented in this [facility]03-18-2024 Physician Emergency department Note* NADIA Ruiz - 06/16/2023 12:38 PM EDT Images from the original note were not included. EMERGENCY DEPARTMENT ENCOUNTER Pt Name: Ezra Gonzalez Birthdate 1935 Date of evaluation: 06/16/2023 ED Provider: NADIA Riuz CHIEF COMPLAINT Chief Complaint Patient presents with Arm Injury Pt arrives via physician's ambulance from [facility] with complaints of right elbow fracture.Patient was [...] injury anywhere else. Patient was evaluated at [facility] emergency department prior to arrival and was noted to have a distal humerus fracture. Patient was transferred to [facility] ED for orthopedic consultation. Patient denies [...] Culture. Procedure Abnormality Status --------- ------ Complete Urinalysis[[id number]] Please view results for these tests on [...] right arm injury. Patient was seen at [facility] prior to arrival was noted to have a distal humerus fracture. Patient transferred to [facility] ED for orthopedic consultation. Nursing notes [...] screen, x-ray right elbow. CT head from [place] [facility] -shows no signs of acute cranial abnormalities. CXR from [place] ED prior to arrival -blunting of bilateral [...] signed) Emergency Medicine Provider NADIA Ruiz 06/16/23 2829 [facility] HospitalUvdgdq78-39-3756 Physician Emergency department Note* Sae Conde MD - 06/16/2023 12:38 PM EDT Emergency Department Encounter [facility] EMERGENCY DEPT Patient: Ezra Gonzalez : [...] for clarification.) Sae Conde MD Acute Care [facility] Sae Conde MD 06/16/23 1626 [employer] Phone: 1(477) 466-176109-30-2023 Discharge summary Author Lali Pimentel [facility] December 27, 2022 10:31pm Note Date/Time December 27, 2022 3:52pm [facility] Medical Records Department [address] [place] [address] Emergency Department Summary 12/27/22 MR#: [id number] Acct: [id number] Name: EZRA GONZALEZ Rep #:[id number] : 1935 87 From: Lali Pimentel MD PCP: Dr. Rosemary Doran MD Status:ADM MARIELOS Location: [place] [address] HPI History of Present Illness Chief Complaint: [...] repeat a phrase her speech is garbled. 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 Neurology from [facility] felt that the patient should be admitted [...] Provider] - Disposition Disposition: Acute Care Hospital [facility] What to do if you have Problems For any increased pain, shortness of breath, bleeding, nausea or vomiting, chestpain, or any unexpected problems, contact your Primary Care Provider. Call [employer] ([phone]) or report to the closest Emergency Room. Call 911 if necessary. 12/27/222230 <Electronically signed by Lali Pimentel MD> Cosigner Signature (if applicable): CC: Dr. Rosemary Doran MD ~ Signed [facility] Work Phone: 1(506) 280-363809-29-2023 History and physical note Author Lynn Horn [facility] December 27, 2022 6:54pm Note Date/Time December 27, 2022 5:12pm [facility] Medical Records Department [address] [place] [address] H&P Exam - Hospitalist 12/27/22 1709 MR#: [id number] Acct: [id number] Name: EZRA GONZALEZ Rep #:[id number] : 1935 87 From: Lynn Horn DO PCP: Dr. Rosemary Doran MD Status:ADM MARIELOS Location: [place] [address] HPI - General General Date of Admission: 12/27/22 Date of Service: 12/27/22 Chief Complaint: Speech abnormalities HPI Narrative EZRA GONZALEZ, is a 87 F who presented to the emergency department at [facility] on 12/27/2022 with speech abnormalities that started after 1 PM this afternoon. She resides at [facility]. She was last known well at [...] aspirin 81 mg as well [facility] Medical History Atherosclerotic heart disease of sile[place] tribe coronary artery without angina pectoris Chronic diastolic [...] % (Auto) 57.4, Lymph % (Auto) 27.9, [place] % (Auto) 10.8 H, Eos % (Auto) [...] on admission Charges/Coding Visit Charges Inpatient E&M: 28111 Init Hosp L2 12/27/22 1854 <Electronically signed by Lynn Horn DO> Cosigner Signature (if applicable): CC: Dr. Rosemary Doran MD; Dr. Lynn Horn DO~ Signed [facility] Work Phone: 1(504) 605-334809-14-2023 Discharge summary Author María Crane [facility] December 12, 2022 1:40pm Note Date/Time December 12, 2022 1:40pm [facility] Physical Therapy [facility] [address] [place] [address] / REHABILITATION SERVICES DISCHARGE SUMMARY MR#: [id number] Acct: [id number] Name: EZRA GONZALEZ Rep #: [id number] : 1935 87 From: María MATTSON T Referring Dr.: Dr. Anant Juarez MD Status: REG [facility] Insurance: [facility] [id number] SELF PAY INSURANCE Patient Information Patient Information: [...] Dr. Anant Juarez MD ~ ELR Signed [facility] Work Phone: [phone] 288-801711-17-2007 Evaluation note* Diagnosis Onset Date Resolution Status Chronic diastolic (congestive) heart failure chronic Essential (primary) hypertension chronic Paroxysmal atrial fibrillation chronic History of coronary artery stent placement February 142006 resolved [facility] Work Phone: [phone] 293-396811-17-2007 Evaluation note* Diagnosis Onset Date Resolution Status Chronic diastolic (congestive) heart failure chronic Essential (primary) hypertension chronic History of coronary artery stent placement February 142006 resolved Brain TIA resolved Carotid stenosis acute Difficulty with speech acute Dysarthria resolved Polyneuropathy acute [facility] Work Phone: [phone] 369-506911-17-2007 Evaluation note* Diagnosis Onset Date Resolution Status Chronic diastolic (congestive) heart failure chronic Essential (primary) hypertension chronic History of coronary artery stent placement February 142006 resolved Brain TIA resolved Carotid stenosis acute Difficulty with speech acute Dysarthria resolved Abnormality of gait and mobility acute Carotid stenosis acute Dementia acute Polyneuropathy acute Transient ischemic attack re solved [facility] Work Phone: [phone] 588-300011-17-2007 Evaluation note* Diagnosis Onset Date Resolution Status Longstanding persistent atrial fibrillation acute Essential (primary) hypertension chronic History of coronary artery stent placement February 142006 resolved Dementia acute Epilepsy acute Polyneuropathy acute Transient ischemic attack re solved [facility] Work Phone: Consult note Author Kvng Carney [facility] June 16, 2023 10:15am Note Date/Time June 16, 2023 10: 14am [facility] Medical Records Department [address] [place] [address] Consultation - Orthopedics 06/16/23 1012 MR#: [id number] Acct: [id number] Name: EZRA GONZALEZ Rep #:[id number] : 1935 87 From: Kvng Carney MD PCP: Dr. Rosemary Doran MD Status:REG ER Location: ED HPI Consult Data Date of Consult: 06/16/23 HPI Narrative HPI Narrative: EZRA GONZALEZ, is a 87 F who presents with a right distal humerus fracture. Patient apparently is in [facility] there a fall. According to the ED physician Dr. Mack who called me today this is a closed neurovascularly intact injury. [facility] Medical History (Updated 06/16/23 @ 10:13 by Kvng Carney MD) Atherosclerotic heart disease of [place] coronary artery without angina pectoris Chronic diastolic [...] % (Auto) 67.8, Lymph % (Auto) 23.0, [place]% (Auto) 7.0, Eos % (Auto) 1.3, Baso [...] applicable): CC: Dr. Rosemary Doran MD~ Signed [facility] Work Phone: Discharge summary Author Neri Mitchell [facility] November 14, 2022 11:57am Note Date/Time November 14, 2022 11 :10am [facility] Medical Records Department [address] [place] [address] Emergency Department Summary 11/14/22 MR#: [id number] Acct: [id number] Name: EZRA GONZALEZ Rep #:[id number] : 1935 87 From: Neri Mitchell MD [...] is on warfarin has history of TIAs. [facility] Medical History Atherosclerotic heart disease of [place] coronary artery without angina pectoris Chronic diastolic [...] 5 mg tablet 5 mg PO DAILY 09/11/20 [History Last Taken 06/21/20] multivitamin 1 cap [...] % (Auto) 64.0 Lymph % (Auto) 24.9 [place] % (Auto) 7.8 Eos % (Auto) 2.4 [...] No evidence for large vessel occlusion the [place]. N.B. : The above Results were Read Back by Ban Avila MD to Neri Mitchell MD, and understanding confirmed on 11/14/2022 11:41:26 (ET). Electronically Signed: Ban Avila MD at 11:41 EDT , ADDENDUM: 11/14/22 1148 IMPRESSION: No evidence for significant stenosis or occlusion in the carotid or vertebral arteries of the neck. No evidence for large vessel occlusion the [place]. N.B. : The above [...] Fibrillation Management Discussion w/another healthcare provider: Hospitalist, Pumper Hand (Stroke neurology Dr. Tamez) and Radiologist (At 1121 for NCCT, negative for bleed) Stroke Documentation Questions Stroke Team Activated: Yes Critical Care Time Critical Care Time: Yes Critical care time (excluding procedures): 30-74 minutes (37 min), Including time spent:, Discussing w/Patient &/or Family/Steam Setter, Discussing w/Consultants, Arranging Admission or Transfer and Performing Direct Patient Care at Bedside Discharge Plan Dx/Rx/DC Orders Clinical Impression: Brain TIA, Paroxysmal atrial fibrillation, Subtherapeutic international normalized ratio (INR) Disposition Disposition: Acute Care Hospital [facility] What to do if you have Problems For any increased pain, shortness of breath, bleeding, nausea or vomiting, chestpain, or any unexpected problems, contact your Primary Care Provider. Call [facility] ([phone]) or report to the closest Emergency Room. Call 911 if necessary. 11/14/22 1157 <Electronically signed by Neri Mitchell MD> Cosigner Signature (if applicable): CC: Dr. Rosemary Doran MD ~ Signed [facility] Work Phone: Discharge summary Author Sae Carballo [facility] December 28, 2022 11:09am Note Date/Time December 28, 2022 11:08am [facility] Medical Records Department [address] [place] [address] Instructions for Home/Discharge Instructions 12/28/221106 MR#: [id number] Acct: [id number] Name: EZRA GONZALEZ Rep #:[id number] : 1935 87 From: Sae fleming MD [...] Order can be placed): Home, Self Care 12/28/221108<Electronically signed by Sae Carballo MD>Sae Carballo MD CC: Dr. Rosemary Doran MD; Dr. Lynn Horn DO ~ Signed [facility] Work Phone: Evaluation note* Diagnosis Onset Date Resolution Status Atherosclerotic heart diseas e of [place] coronary artery without angina pectoris chronic Chronic diastolic (congestive) heart failure chronic Essential (primary) hypertension chronic Hyperlipidemia chronic Paroxysmal atrial fibrillation chronic [facility] Work Phone: Evaluation note* Diagnosis Onset Date Resolution Status Abnormality of gait and mobility acute Carotid stenosis acute Dementia acute Polyneuropathy acute Transient ischemic attack re solved [facility] Work Phone: Evaluation note* Diagnosis Onset Date Resolution Status Abnormality of gait and mobility acute Carotid stenosis acute Dementia acute Polyneuropathy acute Transient ischemic attack re solved Chronic diastolic (congestive) heart failure chronic Essential (primary) hypertension chronic Paroxysmal atrial fibrillation chronic History of coronary artery stent placement February 142006 resolved [facility] Work Phone: Evaluation note* Diagnosis Onset Date Resolution Status Abnormality of gait and mobility acute Carotid stenosis acute Dementia acute Polyneuropathy acute Transient ischemic attack re solved Chronic diastolic (congestive) heart failure chronic Essential (primary) hypertension chronic Paroxysmal atrial fibrillation chronic History of coronary artery stent placement February 142006 resolved Brain TIA acute Subtherapeutic international normalized ratio (INR) acute Paroxysmal atrial fibrillation [facility] Work Phone: Evaluation note* Diagnosis Onset Date Resolution Status Abnormality of gait and mobility acute Carotid stenosis acute Dementia acute Polyneuropathy acute Transient ischemic attack re solved Chronic diastolic (congestive) heart failure chronic Essential (primary) hypertension chronic History of coronary artery stent placement February 142006 resolved Brain TIA resolved Carotid stenosis acute [facility] Work Phone: Evaluation note* Diagnosis Onset Date Resolution Status Abnormality of gait and mobility acute Carotid stenosis acute Dementia acute Polyneuropathy acute Transient ischemic attack re solved Chronic diastolic (congestive) heart failure chronic Essential (primary) hypertension chronic History of coronary artery stent placement February 142006 resolved Brain TIA resolved Carotid stenosis acute Difficulty with speech acute Dysarthria acute [facility] Work Phone: Evaluation note* Diagnosis Onset Date Resolution Status Brain TIA resolved Carotid stenosis acute Difficulty with speech acute Dysarthria resolved Abnormality of gait and mobility acute Carotid stenosis acute Dementia acute Polyneuropathy acute Transient ischemic attack re solved [facility] Work Phone: Evaluation note* Diagnosis Onset Date Resolution Status Dementia acute Epilepsy acute Polyneuropathy acute Transient ischemic attack re solved [facility] Work Phone: Evaluation note* Diagnosis Onset Date Resolution Status Dementia acute Epilepsy acute Polyneuropathy acute Transient ischemic attack re solved Longstanding persistent atrial fibrillation acute Essential (primary) hypertension chronic History of coronary artery stent placement February 142006 resolved Dementia acute Epilepsy acute Polyneuropathy acute Transient ischemic attack re solved [facility] Work Phone: Evaluation note* Diagnosis Closed displaced fracture of medial condyle of right humerus, initial encounter- Primary Closed displaced fracture of medial condyle of right humerus, initial encounter [facility] Dis[facility] instructions Additional Instructions Your work-up today does not show signs of heart attack or heart damage. Your Coumadin level/INR is therapeutic at 2.7. Please follow-up with your family doctor for repeat evaluation or return to the ER if [facility] have any [facility] Work Phone: Hospital Discharge instructionsAmbulatory Orders* Physical Therapy Referral Location: None Selected [facility] Work Phone: Hospital Discharge instructions Additional Instructions Will need to follow-up Lamictal level since it is a send out. Recommend follow- up appointment with her neurologist Dr. [facility] Work Phone: Reason for referral (narrative)No reason for referral information availableWUniversity [facility] Work Phone: Summary Purpose Family History No Family History Records Found Relationship Condition Age at Onset Recorded Date/T maggy father Coronary artery disease Unknown brother Coronary artery disease Unknown Advance Directives No Advanced Directives Records Found Advance Directive Response Recorded Date/ Time Advance Directives Yes November 10:13am Living Will No February 11 12:11am Power of Numerical Control Machine Operator No February 11, 2022 12:11am Advance Directive Response Recorded Date/ Time Advance Directives Yes November 11:13am Living Will No February 11, 2 022 1:11am Power of Numerical Control Machine Operator No February 11, 2022 1:11am Advance Directive Response Recorded Date/ Time Advance Directives Yes November 11:13am Living Will No September 08, 2022 3:33pm Power of Numerical Control Machine Operator No September 08 3:33pm Advance Directive Response Recorded Date/ Time Advance Directives Yes November 11:13am Living Will No November 14 11:07am Power of Numerical Control Machine Operator No November 14, 2 023 11:07am Advance Directive Response Recorded Date/ Time Name of Medical Power of Numerical Control Machine Operator Ty nguyen November 18, 2022 7:55am Advance Directives Yes November 11:13am Living Will Yes November 18 7:55am Power of Numerical Control Machine Operator Yes November 18 023 7:55am Name of Medical Power of Numerical Control Machine Operator Wilfredo [place] November 14, 2022 1:26pm Advance Directive Response Recorded Date/ Time Name of Medical Power of Numerical Control Machine Operator Ty nguyen November 18, 2022 7:55am Name of Medical Power of Numerical Control Machine Operator Wilfredo [place] November 14, 2022 1:26pm Advance Directives Yes November 11:13am Living Will No December 27, 2022 7:16pm Power of Numerical Control Machine Operator No November 7:16pm Advance Directive Response Recorded Date/ Time Name of Medical Power of Numerical Control Machine Operator Ty nguyen November 18, 2022 6:55am Name of Medical Power of Numerical Control Machine Operator Wilfredo [place] November 14, 2022 12:26pm Advance Directives Yes November 10:13am Living Will No December 27, 2022 6:16pm Power of Numerical Control Machine Operator No November 6:16pm Advance Directive Response Recorded Date/ Time Advance Directives Yes November 10:13am Living Will No December 27, 2022 6:16pm Power of Numerical Control Machine Operator No November 6:16pm Advance Directive Response Recorded Date/ Time Name of Medical Power of Numerical Control Machine Operator SON--JACK June 16, 2023 8:32am Advance Directives Yes November 11:13am Living Will Yes June 16, 2023 8:32am Power of Numerical Control Machine Operator Yes June 15 8:32am Latest Code Status on File Code Status Date Activated Date Inactivated Comments Full Code 06/16/2023 4:39 PM 06/20/2023 7:46 PM Advance Directive Response Recorded Date/ Time Living Will Yes June 16, 2023 7:32am Power of Numerical Control Machine Operator Yes June 15 7:32am Advance Directives Yes November 10:13am Advance Directive Response Recorded Date/ Time Living Will Yes June 16, 2023 8:32am Do you have a Healthcare Power of Numerical Control Machine Operator? Yes June 16, 2023 8:32am Advance Directives Yes November 11:13am Advance Directive Response Recorded Date/ Time Living Will No December 27, 2022 7:16pm Do you have a Healthcare Power of Numerical Control Machine Operator? No December 27, 2022 7:16pm Living Will Yes June 16, 2023 8:32am Do you have a Healthcare Power of Numerical Control Machine Operator? Yes June 16, 2023 8:32am Advance Directives Yes November 11:13am Advance Directive Response Recorded Date/ Time Living Will No December 27, 2022 7:16pm Do you have a Healthcare Power of Numerical Control Machine Operator? No December 27, 2022 7:16pm Do you have a Healthcare Power of Numerical Control Machine Operator? Yes September 08, 2024 12:26pm Advance Directives Yes November 11:13am Advance Directive Response Recorded Date/ Time Living Will No December 27, 2022 7:16pm Do you have a Healthcare Power of Numerical Control Machine Operator? No December 27, 2022 7:16pm Do you have a Healthcare Power of Numerical Control Machine Operator? Yes September 10, 2024 5:17pm Do you have a Healthcare Power of Numerical Control Machine Operator? 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 LABS FROM DR JUAREZ Consult Reason for Visit Abnormality of gait and mobility Carotid stenosis Dementia Polyneuropathy Transient ischemic attack Chief Complaint TIA SYMPTOMS, HX OF DM, AFIB confusion assisted (current) use 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 EORDER FOR LABS FROM DR JUAREZ Consult LEFT ICA STENOSIS Reason for Visit Abnormality of gait and mobility Carotid stenosis Dementia Polyneuropathy Transient ischemic attack Chief Complaint TIA SYMPTOMS, HX OF DM, 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 LABS FROM DR JUAREZ Consult LEFT ICA STENOSIS 6 M FU W BLOCKING MACHINE TENDER per BLOCKING MACHINE TENDER GAIT,POLYNEUROPATHY,LUMBAR COMPRESSION FX/RX HERE GAIT DISORDER Reason for Visit Abnormality of gait and mobility Carotid stenosis Dementia Polyneuropathy Transient ischemic attack Chronic diastolic (congestive) heart failure Essential (primary) hypertension Paroxysmal atrial fibrillation History of coronary artery stent placement Chief Complaint TIA SYMPTOMS, HX OF DM, 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 FROM DR JUAREZ Consult LEFT ICA STENOSIS 6 M FU W BLOCKING MACHINE TENDER per BLOCKING MACHINE TENDER GAIT,POLYNEUROPATHY,LUMBAR COMPRESSION FX/RX HERE GAIT DISORDER TIA Reason for Visit Abnormality of gait and mobility Carotid stenosis Dementia Polyneuropathy Transient ischemic attack Chronic diastolic (congestive) heart failure Essential (primary) hypertension Paroxysmal atrial fibrillation History of coronary artery stent placement Brain TIA Subtherapeutic international normalized ratio (INR) Paroxysmal atrial fibrillation Chief Complaint TIA SYMPTOMS, HX OF DM, 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 LABS FROM DR JUAREZ Consult LEFT ICA STENOSIS 6 M FU W BLOCKING MACHINE TENDER per BLOCKING MACHINE TENDER GAIT,POLYNEUROPATHY,LUMBAR COMPRESSION FX/RX HERE GAIT DISORDER TIA [...] SYMPTOMS, HX OF DM, 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 LABS FROM DR JUAREZ Consult LEFT ICA STENOSIS 6 M FU W BLOCKING MACHINE TENDER per BLOCKING MACHINE TENDER GAIT,POLYNEUROPATHY,LUMBAR COMPRESSION FX/RX HERE GAIT DISORDER TIA TIA (cardiology) TIA (cardiology) tia HALFWAY LAB WORK CONSULT-CAROTID STENOSIS Reason for Visit Abnormality of gait and mobility Carotid stenosis Dementia Polyneuropathy Transient ischemic attack Chronic diastolic (congestive) heart failure Essential (primary) hypertension History of coronary artery stent placement Brain TIA Carotid stenosis Chief Complaint TIA SYMPTOMS, HX OF DM, AFIB confusion assisted (current) use 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 EORDER FOR LABS FROM DR JUAREZ Consult LEFT ICA STENOSIS 6 M FU W BLOCKING MACHINE TENDER per BLOCKING MACHINE TENDER GAIT,POLYNEUROPATHY,LUMBAR COMPRESSION FX/RX HERE GAIT DISORDER TIA TIA (cardiology) TIA (cardiology) tia HALFWAY LAB WORK CONSULT-CAROTID STENOSIS LABWORK HALFWAY LABWORK Reason for Visit Abnormality of gait and mobility Carotid stenosis Dementia Polyneuropathy Transient ischemic attack Chronic diastolic (congestive) heart failure Essential (primary) hypertension History of coronary artery stent placement Brain TIA Carotid stenosis Chief Complaint TIA SYMPTOMS, HX OF DM, AFIB confusion assisted (current) use 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 EORDER FOR LABS FROM DR JUAREZ Consult LEFT ICA STENOSIS 6 M FU W BLOCKING MACHINE TENDER per BLOCKING MACHINE TENDER GAIT,POLYNEUROPATHY,LUMBAR COMPRESSION FX/RX HERE GAIT DISORDER TIA TIA (cardiology) TIA (cardiology) tia HALFWAY LAB WORK CONSULT-CAROTID STENOSIS LABWORK HALFWAY LABWORK DYARTHRIA DYARTHRIA Reason for Visit Abnormality of gait and mobility Carotid stenosis Dementia Polyneuropathy Transient ischemic attack Chronic diastolic (congestive) heart failure Essential (primary) hypertension History of coronary artery stent placement Brain TIA Carotid stenosis Difficulty with speech Dysarthria Chief Complaint LEFT ICA STENOSIS 6 M FU W BLOCKING MACHINE TENDER per BLOCKING MACHINE TENDER GAIT,POLYNEUROPATHY,LUMBAR COMPRESSION FX/RX HERE GAIT DISORDER TIA TIA (cardiology) TIA (cardiology) tia HALFWAY LAB WORK CONSULT-CAROTID STENOSIS LABWORK HALFWAY LABWORK DYARTHRIA DYARTHRIA DYARTHRIA HALFWAY LABWORK 4 month f/u EORDER Reason for Visit Chronic diastolic (c ongestive) heart failure Essential (primary) hypertension History of coronary artery stent placement Brain TIA Carotid stenosis Difficulty with speech Dysarthria Polyneuropathy Chief Complaint 6 M FU W BLOCKING MACHINE TENDER per BLOCKING MACHINE TENDER GAIT,POLYNEUROPATHY,LUMBAR COMPRESSION FX/RX HERE GAIT DISORDER TIA TIA (cardiology) TIA (cardiology) tia HALFWAY LAB WORK CONSULT-CAROTID STENOSIS LABWORK HALFWAY LABWORK DYARTHRIA DYARTHRIA DYARTHRIA HALFWAY LABWORK 4 month f/u EORDER Reason for Visit Chronic diastolic (c ongestive) heart failure Essential (primary) hypertension History of coronary artery stent placement Brain TIA Carotid stenosis Difficulty with speech Dysarthria Abnormality of gait and mobility Carotid stenosis Dementia Polyneuropathy Transient ischemic attack Chief Complaint TIA TIA (cardiology) TIA (cardiology) tia HALFWAY LAB WORK CONSULT-CAROTID STENOSIS LABWORK HALFWAY LABWORK DYARTHRIA DYARTHRIA DYARTHRIA HALFWAY LABWORK 4 month f/u EORDER HALFWAY LABWORK Reason for Visit Brain TIA Carotid stenosis Difficulty with speech Dysarthria Abnormality of gait and mobility Carotid stenosis Dementia Polyneuropathy Transient ischemic attack Chief Complaint HALFWAY LABWORK 4 month f/u EORDER HALFWAY LABWORK HALFWAY LAB WORK HALFWAY LABWORK Reason for Visit Dementia Epilepsy Polyneuropathy Transient ischemic attack Chief Complaint 4 month f/u EORDER HALFWAY LABWORK HALFWAY LAB WORK HALFWAY LAB WORK HALFWAY LABWORK 7 m fu 4 month f/u Reason for Visit Dementia Epilepsy Polyneuropathy Transient ischemic attack Longstanding persistent atrial fibrillation Essential (primary) hypertension History of coronary artery stent placement Dementia Epilepsy Polyneuropathy Transient ischemic attack Chief Complaint HALFWAY LABWORK HALFWAY LAB WORK HALFWAY LAB WORK HALFWAY LABWORK LABWORK 7 m fu 4 month f/u LABWORK Reason for Visit Longstanding persist ent atrial fibrillation Essential (primary) hypertension History of coronary artery stent placement Dementia Epilepsy Polyneuropathy Transient ischemic attack Chief Complaint HALFWAY LABWORK HALFWAY LAB WORK HALFWAY LAB WORK HALFWAY LABWORK LABWORK 7 m fu 4 month f/u LABWORK [place] Reason for Visit Longstanding persist ent atrial fibrillation Essential (primary) hypertension History of coronary artery stent placement Dementia Epilepsy Polyneuropathy Transient ischemic attack Chief Complaint HALFWAY LAB WOR K HALFWAY LAB WORK HALFWAY LABWORK LABWORK 7 m fu 4 month f/u LABWORK FALL [place]ALL LABWORK Reason for Visit Longstanding persist ent atrial fibrillation Essential (primary) hypertension History of coronary artery stent placement Dementia Epilepsy Polyneuropathy Transient ischemic attack Chief Complaint Admit Date HALFWAY LAB WORK February 05, 2024 5:00am HALFWAY LAB WORK March 04, 2024 5:00am HALFWAY LAB WORK March 08, 2024 5:00am HALFWAY LAB WORK March 10 4:00am LABWORK March 17, 2024 5:00am LABWORK March 19, 2024 5:00am LABWORK March 25, 2024 5:00am HALFWAY LAB WORK March 26 5:00am HALFWAY LAB WORK March 29 5:00am HALFWAY LAB WORK April 05, 2024 5:00am HALFWAY LAB WORK April 06, 2024 5:00am LABWORK April 09, 2024 5 :00am HALFWAY LAB WORK April 14, 2024 4:00am HALFWAY LAB WORK April 28, 2024 5:00am LABWORK May 05, 2024 5 :00am 8 mo fu May 10, 2024 2:34pm HALFWAY LAB WORK May 19 5:00am Reason for Visit Admit Date Dementia May 10, 2024 2:34pm Epilepsy May 10, 2024 2:34pm Transient ischemic attack May 10, 2024 2:34pm Chief Complaint Admit Date HALFWAY LAB WORK March 04, 2024 5:00am HALFWAY LAB WORK March 08, 2024 5:00am HALFWAY LAB WORK March 10 4:00am LABWORK March 17, 2024 5:00am LABWORK March 19, 2024 5:00am LABWORK March 25, 2024 5:00am HALFWAY LAB WORK March 26 5:00am HALFWAY LAB WORK March 29 5:00am HALFWAY LAB WORK April 05, 2024 5:00am HALFWAY LAB WORK April 06, 2024 5:00am LABWORK April 09, 2024 5 :00am HALFWAY LAB WORK April 14, 2024 4:00am HALFWAY LAB WORK April 28, 2024 5:00am LABWORK May 05, 2024 5 :00am 8 mo fu May 10, 2024 2:34pm HALFWAY LAB WORK May 12 5:00am HALFWAY LAB WORK May 19 5:00am HALFWAY LAB WORK June 09, 2024 5 :00am Chief Complaint Admit Date HALFWAY LAB WORK March 10 4:00am LABWORK March 17, 2024 5:00am LABWORK March 19, 2024 5:00am LABWORK March 25, 2024 5:00am HALFWAY LAB WORK March 26 5:00am HALFWAY LAB WORK March 29 5:00am HALFWAY LAB WORK April 05, 2024 5:00am HALFWAY LAB WORK April 06, 2024 5:00am LABWORK April 09, 2024 5 :00am HALFWAY LAB WORK April 14, 2024 4:00am HALFWAY LAB WORK April 28, 2024 5:00am LABWORK May 05, 2024 5 :00am 8 mo fu May 10, 2024 2:34pm HALFWAY LAB WORK May 12 5:00am HALFWAY LAB WORK May 19 5:00am HALFWAY LAB WORK June 09, 2024 5 :00am HALFWAY LAB WORK June 16, 2024 5 :00am [...] Admit Date LABWORK March 25, 2024 5:00am HALFWAY LAB WORK March 26 5:00am HALFWAY LAB WORK March 29 5:00am HALFWAY LAB WORK April 05, 2024 5:00am HALFWAY LAB WORK April 06, 2024 5:00am LABWORK April 09, 2024 5 :00am HALFWAY LAB WORK April 14, 2024 4:00am [facility] April 28, 2024 5:00am LABWORK May 05, 2024 5 :00am 8 mo fu May 10, 2024 2:34pm [facility] May 12 5:00am [facility] May 19 5:00am [facility] June 09, 2024 5 :00am [facility] June 16, 2024 5 :00am 1 Y FU July 01, 2024 10:3 5am [facility] July 19, 2024 4 :00am Chief Complaint Admit Date [facility] May 12 5:00am [facility] May 19 5:00am [facility] June 09, 2024 5 :00am [facility] June 16, 2024 5 :00am 1 Y FU July 01, 2024 10:3 5am [facility] July 19, 2024 4 :00am [facility] August 18, 2024 5:0 0am SEIZURE September 08, 2024 12:2 0pm Reason for Visit Admit Date Longstanding persistent atrial fibrillat ion July 01, 2024 10:35am Essential (primary) hypertension July 012024 10:35am History of coronary artery stent placeme nt July 01, 2024 10:35am Chief Complaint Admit Date [facility] May 19 5:00am [facility] June 09, 2024 5 :00am [facility] June 16, 2024 5 :00am 1 Y FU July 01, 2024 10:3 5am [facility] July 19, 2024 4 :00am [facility] August 18, 2024 5:0 0am SEIZURE September 08, 2024 12:2 0pm Chief Complaint Admit Date [facility] May 19 5:00am [facility] June 09, 2024 5 :00am [facility] June 16, 2024 5 :00am 1 Y FU July 01, 2024 10:3 5am [facility] July 19, 2024 4 :00am [facility] August 18, 2024 5:0 0am SEIZURE September 08, 2024 12:2 0pm STROKE VS SEIZURE September 10, 2024 4:03 pm Chief Complaint Admit Date [facility] May 19 5:00am [facility] June 09, 2024 5 :00am [facility] June 16, 2024 5 :00am 1 Y FU July 01, 2024 10:3 5am [facility] July 19, 2024 4 :00am [facility] August 18, 2024 5:0 0am [...] 2024 4 :03pm Chief Complaint Admit Date [facility] May 19 5:00am [facility] June 09, 2024 5 :00am [facility] June 16, 2024 5 :00am 1 Y FU July 01, 2024 10:3 5am [facility] July 19, 2024 4 :00am [facility] August 18, 2024 5:0 0am SEIZURE September 08, 2024 12:2 0pm STROKE VS SEIZURE September 10, 2024 4:03 pm STROKE VS SEIZURE September 11, 2024 12:1 4pm 2 SEIZURES/ IN [facility] September 13, 2024 2:04 pm EORDERS [...] section and content) DATE CREATED AUTHOR 02/04/2018 [facility] DATE CREATED AUTHOR AUTHOR'S ORGANIZ ATION 11/12/2019 [facility] DATE CREATED AUTHOR AUTHOR'S ORGANIZ ATION 06/26/2023 [facility] DATE CREATED AUTHOR AUTHOR'S ORGANIZ ATION 10/07/2024 [facility] Source Comments (unrecognize d section and content) In the event this informatio n is protected by the Federal Confidentiality of Alcohol and Drug Abuse Patient Records regulations: The Federal rules restrict any use of the information to criminally investigate or prosecute any alcohol or drug abuse patient.[facility] [place] the event this information is protected by the Federal Confidentiality of Alcohol and Drug Abuse Patient Records regulations: The Federal rules restrict any use of the information to criminally investigate or prosecute any alcohol or drug abuse patient.[facility] [place] the event this information is protected by the Federal Confidentiality of Alcohol and Drug Abuse Patient Records regulations: The Federal rules restrict any use of the information to criminally investigate or prosecute any alcohol or drug abuse patient.[facility] [place] the event this information is protected by the Federal Confidentiality of Alcohol and Drug Abuse Patient Records regulations: The Federal rules restrict any use of the information to criminally investigate or prosecute any alcohol or drug abuse patient.[facility] [place] the event this information is protected by the Federal Confidentiality of Alcohol and Drug Abuse Patient Records regulations: The Federal rules restrict any use of the information to criminally investigate or prosecute any alcohol or drug abuse patient.[facility] [place] Reason for Visit (unrecogniz ed section and content) Reason Onset Date Comments Refill Request Refill Request 11/11/2019 Reason Comments Arm Injury Pt arrives via [employer] ambulance from [facility] with complaints of right elbow fracture. Patient was sent here for ortho consult. No pain on arrival. Arrives with right arm splinted. Specialty Diagnoses / Procedures Referred By Ana bo Referred To Contact Diagnoses Closed displaced fracture of medial condyle of right humerus, initial encounter Procedures .. Jayshree Cortez MD [address] [place] [address] [facility] Emergency Dept [address] [place] [id number] Referral ID Status Reason Start Date Expiration Date Visits Re quested Visits Authorized [id number] 1 1 Telephone Encounter - Anne Marie [...] Visit date not found Patient Phone numbers: [phone] (home) Request is for script(s) to be [...] Provider Active Start: September 10, 2024 Dr. aMtthew Oro DO Attending Provider Active Start: September [...] Provider Active Sta rt: September 10, 2024 Meagna Edmondson MD Other Provider Active Start: September [...] Admit Provider, Other Provider Ac tive Dr. aSe Carballo MD Attending Provider Active Team Status: Active Member Role Status Dates Dr. Rosemary Doran MD Primary Care Provider Active Team Status: Inactive Member Role Status Dates Dr. Rosemary Doran MD Primary Care Provider Active Dr. Reese Shankar DO Attending Provider, Emergency Pr ovider Active Team Status: Inactive Member Role Status Dates Dr. Rosemary Doran MD Primary Care Provider Active Suze Prebish MOBILE PRACTICE LEAD, MOBILE PRACTICE LEAD-C Attending Provider, Referring Pr ovider Active [...] Rosemary Doran MD Primary Care Provider Active Dough Panner Relationship Specialty Start Date End Date Alexandra Hagen [address] [place] [id number] PCP - General Family Medicine 06/20/23 Team [...] Other Provider Active Start: Ju ne 2024 End: September 11, 2024 Camila Mitchell [...] HICKS MD Other Provider Active Start: J 2024 Cara Batista MD Other Provider Active [...] Transfer Provider)2126 (Given - Provider: Kirsty Vicente, JAYME) 2147 (Given - Provider: Kirsty Vicente RN) [...] RN) 0837 (Given - Provider: Leona Sidhu RN)214 (Given - Provider: Kirsty Vicente RN) 0924 [...] Auto Held - Provider: Automatic Transfer Provider)2025 (MAY Unhold - Provider: Automatic Transfer Provider) 0800 [...] Comment: [phone] (Not Given - Provider: Juanjo Villalba, RN - Reason: Other)1700 (Canceled Entry - [...] 5 Units Above 400 6 Units 151 (MAY Hold - Provider: Automatic Transfer Provider - Reason: Patient not available)2025 (MAY Unhold - Provider: Automatic Transfer Provider)2131 (Given [...] 0924 (Given - Provider: Juanjo Villalba RN) metoprolol tartrate (Lopressor) tablet 25 mg 25 mg, Oral, 2 times daily, First dose on Fri06/17/23 at 2145 0840 (Given - Provider: Odessa Wayne RN)1512 (MAY Hold - Provider: Automatic Transfer Provider - Reason: Patient not available)2025 (MAY Unhold - Provider: Automatic Transfer Provider)2127 (Given - Provider: Kirsty Vicente RN) 0837 (Given - Provider: Leona Sidhu, JAYME)214 (Given - Provider: Kirsty Vicente RN) 0924 (Given - Provider: Juanjo Villalba RN) pantoprazole (ProtoNix) EC tablet 40 mg 40 mg, Oral, Daily before breakfast, First dose on Fri06/18/23 at 0600, Substituted for omeprazole (Prilosec). Do not crush, chew, or split. 0600 (Not Given - Provider: Yvan Sepulveda RN - Reason: NPO)1512 (MAY Hold - Provider: Automatic Transfer Provider [...] from all sources in 24 hours. 1511 ([facility] Hold - Provider: Automatic Transfer Provider - Reason: Patient not available)2025 ([facility] Unhold - Provider: Automatic Transfer Provider) acetaminophen (Tylenol) tablet 650 mg(Linked Group 2) 650 mg, Oral, Every 6 hours PRN, mild pain (1-3), fever, For temp greater than 100.4 F (38 C), Starting on Fri06/16/23 at 1639, Maximum dose of acetaminophen is 4000 mg from all sources in 24 hours. 1511 ([facility] Hold - Provider: Automatic Transfer Provider - Reason: Patient not available)2025 ([facility] Unhold - Provider: Automatic Transfer Provider) dextrose 5 % infusion 100 mL/hr, IntraVENous, PRN, Blood sugar less than 70mg/dL, Starting on Fri06/17/23 at 2131, Start infusion following administration of dextrose 50% or glucagon. 1511 ([facility] Hold - Provider: Automatic Transfer Provider - Reason: Patient not available)2025 ([facility] Unhold - Provider: Automatic Transfer [...] Glucostabilizer, dose as instructed per system. 1511 ([facility] Hold - Provider: Automatic Transfer Provider - Reason: Patient not available)2025 ([facility] Unhold - Provider: Automatic Transfer [...] 15 minutes x2 and notify provider. 1511 ([facility] Hold - Provider: Automatic Transfer Provider - Reason: Patient not available)2025 ([facility] Unhold - Provider: Automatic Transfer [...] 15 minutes x2 and notify provider. 1511 ([facility] Hold - Provider: Automatic Transfer Provider - Reason: Patient not available)2025 ([facility] Unhold - Provider: Automatic Transfer [...] of each other unless specifically ordered. 1511 ([facility] Hold - Provider: Automatic Transfer Provider - Reason: Patient not available)2025 ([facility] Unhold - Provider: Automatic Transfer Provider) naloxone (Narcan) injection 0.4 mg 0.4 mg, IntraVENous, Every 5 min PRN, opioid reversal, respiratory depression, Starting on Fri06/16/23 at 1647, +++ For RR <10, pinpoint pupils, over sedation for opioid reversal - MUST notify transport conductor provider immediately after first dose, may give IM or SQ if no IV access +++ 1511 ([facility] Hold - Provider: Automatic Transfer Provider - Reason: Patient not available)2025 ([facility] Unhold - Provider: Automatic Transfer Provider) ondansetron (Zofran) injection 4 mg(Linked Group 3) 4 mg, IntraVENous, Every 6 hours PRN, nausea, vomiting, Starting on Fri06/16/23 at 1639, 1st Line. Give IV if patient is unable to take orally. If inadequate response within 60 minutes, proceed to next-line agent or contact provider if no further options ordered. 1511 ([facility] Hold - Provider: Automatic Transfer Provider - Reason: Patient not available)2025 ([facility] Unhold - Provider: Automatic Transfer [...] blister pack until just before administering. 1511 ([facility] Hold - Provider: Automatic Transfer Provider - Reason: Patient not available)2025 ([facility] Unhold - Provider: Automatic Transfer Provider) oxyCODONE (Roxicodone) immediate release tablet 2.5 mg(Linked Group 4) 2.5 mg, Oral, Every 4 hours PRN, moderate pain (4-6), Starting on Fri06/16/23 at 1639 1511 ([facility] Hold - Provider: Automatic Transfer Provider - Reason: Patient not available)2025 ([facility] Unhold - Provider: Automatic Transfer Provider) 0924 (See Alternative - Provider: Juanjo Villalba RN) oxyCODONE (Roxicodone) immediate release tablet 5 mg(Linked Group 4) 5 mg, Oral, Every 4 hours PRN, severe pain (7-10), Starting on Fri06/16/23 at 1639 151 ([facility] Hold - Provider: Automatic Transfer Provider - Reason: Patient not available)2025 ([facility] Unhold - Provider: Automatic Transfer Provider) 0924 (Given - Provider: Juanjo Villalba RN) polyethylene glycol (PEG) 3350 (Miralax) packet 17 g 17 g, Oral, Daily PRN, constipation, Starting on Fri06/16/23 at 1639, 1st line for treatment of constipation - give scheduled if no bowel movement in past 24 hours. 1511 ([facility] Hold - Provider: Automatic Transfer Provider - Reason: Patient not available)2025 ([facility] Unhold - Provider: Automatic Transfer Provider) sodium [...] BE BASED ON THE PRIMARY CLINICAL RECORDS. [employer] [facility]. provides no warranty or guarantee of the accuracy or completeness of information in this document.
--- OUTSIDE RECORDS SUMMARY | 2024-10-11 03:37 | XMS RPT_ITS | CCD ---
Author Organization [facility] Care Team Providers Care Powder Carrier Name Role Phone LISHNEVSKI, ALEXIA Unavailable Unavailable [...] Unavailable Unavailable LISHNEVSKI, ALEXIA Unavailable Unavailable Villa Hbeert Unavailable Patito Gonzalez Unavailable [phone] Nirmal Kemp Unavailable [phone] Mohan Álvarez Unavailable Bishop, Rickey Clive Unavailable [phone] Rosemary Doran Primary Care Provider Lishnevski, Alexia Primary Care Provider Zenaida Henderson Unavailable Dr. Rosemary Doran Primary Care Provider Dr. Rosemary Doran Referring Provider Roof SOLVENT RECOVERER, SOLVENT RECOVERER-Adeel Arnett Attending Provider Dr. Rosemary Doran Primary [...] Doran Primary Care Provider [phone] Rosmeary Doran Referring Provider Mason ZUNIGA PA Rachell [...] Provider Jerrica LENNON, Dr. Ny Attending Provider [phone] Jerrica LENNON, Dr. Ny Referring Provider [phone] Kvng Ochoa Primary Care Unavailable Douglas OLS, [place] Attending Unavailable Douglas OLS, [place] Attending Unavailable Jolliff, Alexandra S Primary Care [...] Ochoa OLS, Kvng Attending Unavailable Douglas OLS, [place] Attending Unavailable Jolliff, Alexandra S Primary Care [...] Care Unavailable Ochoa, Kvng Primary Care Unavailable Anant Juarez Referring [...] Consulting Unavailable Jones, Rami Consulting Unavailable Mariaa, Dnaiel Consulting Unavailable Kory, Cindy Consulting Unavailable Horacio, Jaysef Consulting Unavailable [...] Robinson Consulting Unavailable Maturu, Aura Consulting Unavailable [place], Eric Consulting Unavailable Hinduja, Camila Consulting Unavailable [...] Unavailable Xiao, Alexandra S Referring Unavailable Douglas, [place] Attending Unavailable Ochoa, Kvng Referring Unavailable Ochoa, [...] Ochoa, Kvng Primary Care Unavailable Douglas OLS, [place] Attending Unavailable Jolliff, Alexandra S Primary Care [...] [ATORVASTATIN] Drug Allergy 5 Other: See Comments [facility] Repository (20 sources) codeine; 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: [CODEINE] Drug Allergy 5 Unknown [facility] Repository (20 sources) Latex; 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: [LATEX] Propensity to adverse reactions (disorder) 5 Rash, Itching [facility] Repository (20 sources) meperidine; 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: [MEPERIDINE] Drug Allergy 5 GI Upset [facility] Repository (20 sources) rosuvastatin; 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: [ROSUVASTATIN] Drug Allergy 5 Other: See Comments [facility] Repository (20 sources) Amiodarone Drug Allergy 2 Hair falling out in gobs, [facility] ([facility] source[facility] Amiodarone Drug Allergy [facility]ository Medications Current Medications Medication Drug Class(es) [...] release tablet 2.5 mg polyethylene glycol 3350 02683 mg powder for oral solution (4 sources) [...] sources) Long-term current use of anticoagulant; 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 [place], [place], [address] Lamotrigine (Lamictal) Level on 09-16-2024 LAMOTRIGINE 1.7 ug/mL Low 2.0-20.0 [facility] Comment on above: Result Comment: Dete ction Limit = 1.0 Performed at: [address] [id number] Medical Logistics Specialist: Brandon Wells MD, Phone: [phone] Performed By: #### L 503.5510, L3310.0000, L3300.4400 ####[facility] [address] [place], [place], [address] Ammoniaon 09-13-2024 Ammonia (P) [Moles/Vol] 28.9 umol/L Normal 11-51 [facility] Comment on above: Performed By: #### L 503.5510, L3310.0000, L3300.4400 ####[facility] [address] [place], [place], [address] Neurology Visit Reporton Neurology Visit Report [facility] [address], [address] [place], [place] [address] OFFICE VISIT Date of Service: 09/13/24 MR#: [id number] Acct: [id number] Name: EZRA GONZALEZ Rep #: [id number] : 1935 Provider: Dr. Anant baez MD Age/Sex: 89/F Location: [facility]. 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 Normal [facility] Venous blood ammonia measure mentOrdered By: Anant Juarez on 09-13-2024 Ammonia (P) [Moles/Vol] 28.9 umol/L 11-51 [facility] Lamotrigine (Lamictal) Level on 09-12-2024 LAMOTRIGINE 1.2 ug/mL Low 2.0-20.0 [facility] Comment on above: Result Comment: Dete ction Limit = 1.0 Performed at: [address] [id number] Medical Logistics Specialist: Brandon Wells MD, Phone: [phone] Performed By: #### L 100.0100, L500.2500, L300.3900, L3300.4400 ####[facility] [address] [facility] [place], [place], [id number] Urine Cultureon 09-12-2024 URC Klebsiella pneumonia e sp pneum [place] Count 80,000-100,000 Klebsiella pneumoniae sp pneum: REACTION [...] TMP SMX Islt MELINDA <=20 S Normal [facility] Comment on above: Performed By: #### M 100.2200 ####[facility] [address] [facility], [place], [id number] Anion gap in Serum or Plasma Ordered By: Matthew Oro on 09-11-2024 Anion gap [Moles/Vol] 12 mmol/L 08-12 [facility] BUN/creatinine ratioOrdered By: Matthew Oro on 09-11-2024 Urea nitrogen/Creatinine [Mass ratio] 30.4 mg/mg High 01-17 [facility] Basic Metabolic Profile (BMP )on 09-11-2024 BUN/CRE 30.4 RATIO High 01-17 [facility] Comment on above: Order Comment: Comme nts: NPO at [place] prior to lipid panel Performed By: #### L 500.4100, L100.0500, L500.2500 #### [facility] [address] [place], [address] Calcium [Mass/Vol] 8.8 mg/dL Normal 7.6-11.0 [facility] Comment on above: Order Comment: Comme nts: NPO at [place] prior to lipid panel Performed By: #### L 500.4100, L100.0500, L500.2500 #### [facility] [address] [place], [address] Chloride [Moles/Vol] 105 mmol/L Normal 98-108 [facility] Comment on above: Order Comment: Comme nts: NPO at [place] prior to lipid panel Performed By: #### L 500.4100, L100.0500, L500.2500 #### [facility] [address] [place], [address] CO2 [Moles/Vol] 21.6 mmol/L Normal 21.0-32.0 [facility] Comment on above: Order Comment: Comme nts: NPO at [place] prior to lipid panel Performed By: #### L 500.4100, L100.0500, L500.2500 #### [facility] [address] [place], [address] Creatinine [Mass/Vol] 0.91 mg/dL Normal 0.70-1.20 [facility] Comment on above: Order Comment: Comme nts: NPO at [place] prior to lipid panel Performed By: #### L 500.4100, L100.0500, L500.2500 #### [facility] [address] [place], [address] ECRCL 41.34 ml/min Low 50-250 [facility] Comment on above: Order Comment: Comme nts: NPO at [place] prior to lipid panel Performed By: #### L 500.4100, L100.0500, L500.2500 #### [facility] [address] [place], [address] GAP 12 Normal 5-15 [facility] Comment on above: Order Comment: Comme nts: NPO at [place] prior to lipid panel Performed By: #### L 500.4100, L100.0500, L500.2500 #### [facility] [address] [place], [address] GFR/1.73 sq M.predicted among non-blacks MDRD (S/P/Bld) [Vol rate/Area] 61 mL/min/{1.73_m2} Normal >60 [facility] Comment on above: Order Comment: Comme nts: NPO at [place] prior to lipid panel Result Comment: mL/m in/1.73m2 CKD-EPI Creatinine Equation (2020) Performed By: #### L 500.4100, L100.0500, L500.2500 #### [facility] [address] [place], [address] Glucose [Mass/Vol] 118 mg/dL High 70-99 [facility] Comment on above: Order Comment: Comme nts: NPO at [place] prior to lipid panel Performed By: #### L 500.4100, L100.0500, L500.2500 #### [facility] [address] [place], [address] Potassium [Moles/Vol] 4.4 mmol/L Normal 3.3-5.1 [facility] Comment on above: Order Comment: Comme nts: NPO at [place] prior to lipid panel Performed By: #### L 500.4100, L100.0500, L500.2500 #### [facility] [address] [place], [address] Sodium [Moles/Vol] 139 mmol/L Normal 133-145 [facility] Comment on above: Order Comment: Comme nts: NPO at [place] prior to lipid panel Performed By: #### L 500.4100, L100.0500, L500.2500 #### [facility] [address] [place], [address] Urea nitrogen [Mass/Vol] 28 mg/dL High 4-19 [facility] Comment on above: Order Comment: Comme nts: NPO at [place] prior to lipid panel Performed By: #### L 500.4100, L100.0500, L500.2500 #### [facility] [address] [place], [address] CBC-Complete Blood Cnt No Di ffon 09-11-2024 Erythrocyte distribution width (RBC) [Ratio] 12.8 % Normal 11.6-14.6 [facility] Comment on above: Performed By: #### L 500.4100, L100.0500, L500.2500 #### [facility] [address] [place], [address] Hematocrit (Bld) [Volume fraction] 39.7 % Normal 37-47 [facility] Comment on above: Performed By: #### L 500.4100, L100.0500, L500.2500 #### [facility] [address] [place], [address] Hemoglobin (Bld) [Mass/Vol] 13.1 g/dL Normal 12.0-15.0 [facility] Comment on above: Performed By: #### L 500.4100, L100.0500, L500.2500 #### [facility] [address] [place], [address] MCH (RBC) [Entitic mass] 30.3 pg Normal 27.0-32.0 [facility] Comment on above: Performed By: #### L 500.4100, L100.0500, L500.2500 #### [facility] [address] [place], [address] MCHC (RBC) [Mass/Vol] 33.0 g/dL Normal 32-36 [facility] Comment on above: Performed By: #### L 500.4100, L100.0500, L500.2500 #### [facility] [address] [place], [address] MCV (RBC) [Entitic vol] 91.7 fL Normal 81-99 [facility] Comment on above: Performed By: #### L 500.4100, L100.0500, L500.2500 #### [facility] [address] [place], [address] Platelet mean volume (Bld) [Entitic vol] 10.7 fL Normal 6.2-12.0 [facility] Comment on above: Performed By: #### L 500.4100, L100.0500, L500.2500 #### [facility] [address] [place], [address] Platelets (Bld) [#/Vol] 271 10*3/uL Normal 150-450 [facility] Comment on above: Performed By: #### L 500.4100, L100.0500, L500.2500 #### [facility] [address] [place], [address] RBC (Bld) [#/Vol] 4.33 10*6/uL Normal 4.2-5.4 [facility] Comment on above: Performed By: #### L 500.4100, L100.0500, L500.2500 #### [facility] [address] [place], [address] RDW SD 42.8 fl Normal 35.1-43.9 [facility] Comment on above: Performed By: #### L 500.4100, L100.0500, L500.2500 #### [facility] [address] [place], [address] WBC (Bld) [#/Vol] 12.2 10*3/uL High 4.4-11.0 [facility] Comment on above: Performed By: #### L 500.4100, L100.0500, L500.2500 #### [facility] [address] [place], [address] Calculated very low density lipoprotein (VLDL) cholesterol measurementOrdered By: Matthew Oro on 09-11-2024 Calculated very low density lipoprotein (VLDL) cholesterol measurement 16 mg/dL 5-40 [facility] Carbon dioxide, total [Moles /volume] in Central venous bloodOrdered By: Matthew Oro on 09-11-2024 CO2 [Moles/Vol] 21.6 mmol/L 21.0-32.0 [facility] Chloride assayOrdered By: Urban Oro on 09-11-2024 Chloride [Moles/Vol] 105 mmol/L 98-108 [facility] Discharge Instructionon 08-29 Discharge Instruction [facility] Medical Records Department [address] [place] [address] Instructions for Home/Discharge Instructions 09/11/24 1214 MR#: [id number] Acct: [id number] Name: EZRA GONZALEZ Rep #: [id number] : 1935 89 From: Matthew Oro DO [...] Thurman DO; Ashu Leonard MD Signed Normal [facility] Electroencephalogramon 09-11 Electroencephalogram [facility] Pulmonary Services/Neurology [address] [place] [address] MR#: [id number] Acct: [id number] Name: EZRA GONZALEZ Rep #: [id number] : 1935 89 From: Castillo Jones MD Referring Dr: Status: ADM MARIELOS Location: [facility] [id number] Date: 09/10/24 Sex: F C EEG Results [...] DO Date Dictated: 09/11/241501 Date Transcribed: 09/11/241501 Collator Operator: RI Signed Normal [facility] Erythrocyte distribution wid th ratioOrdered By: Matthew Oro on 09-11-2024 Erythrocyte distribution width (RBC) [Ratio] 12.8 % 11.6-14.6 [facility] Erythrocyte distribution wid th standard deviationOrdered By: Matthew Oro on 09-11-2024 Erythrocyte distribution width (RBC) [Ratio] 42.8 fl 35.1-43.9 [facility] Glomerular filtration rate ( GFR) estimation/1.73 sq m using serum, plasma, or whole bOrdered By: Matthew Oro on 09-11-2024 GFR/1.73 sq M.predicted among non-blacks MDRD (S/P/Bld) [Vol rate/Area] 61 mL/min/{1.73_m2} >60 [facility] Comment on above: mL/min/1.73m2 CKD-EP I Creatinine Equation (2020) Hematocrit Auto (Bld) [Volum e fraction]Ordered By: Matthew Oro on 09-11-2024 Hematocrit (Bld) [Volume fraction] 39.7 % 37-47 [facility] Hemoglobin measurementOrdere d By: Matthew Oro on 09-11-2024 Hemoglobin (Bld) [Mass/Vol] 13.1 g/dL 12.0-15.0 [facility] LDL calc ser/plasOrdered By: Matthew Oro on 09-11-2024 Cholesterol in LDL [Mass/Vol] 100 mg/dL [facility] Comment on above: Qqpacfvafu=291-926 m g/dL & Higher Xztk=937 mg/dL or greater Lipid Profileon 09-11-2024 CHOL:HDL 3.03 Normal [facility] Comment on above: Order Comment: Comme nts: NPO at [place] prior to lipid panel Performed By: #### L 500.4100, L100.0500, L500.2500 #### [facility] [address] [place], [address] Cholesterol [Mass/Vol] 172 mg/dL Normal <=200 [facility] Comment on above: Order Comment: Comme nts: NPO at [place] prior to lipid panel Result Comment: Chol esterol level, Desirable <200 mg/dL Borderline high cholesterol 200-239 mg/dL High cholesterol >=240 mg/dL Recommendations of the NCEP Adult Treatment Panel for the following risk-cutoff thresholds for the [place] population. Performed By: #### L 500.4100, L100.0500, L500.2500 #### [facility] [address] [place], [address] Cholesterol in HDL [Mass/Vol] 57 mg/dL Normal [facility] Comment on above: Order Comment: Comme nts: NPO at [place] prior to lipid panel Result Comment: Halima onal Cholesterol Education Program (NCEP) guidelines: <40 mg/dL: Low HDL-cholesterol (major risk factor for CHD) >= 60 mg/dL: High HDL-cholesterol (negative risk factor for CHD) HDL-cholesterol is affected by a number of factors, e.g. smoking, exercise, hormones, sex and age. Performed By: #### L 500.4100, L100.0500, L500.2500 #### [facility] [address] [place], [address] Cholesterol in LDL [Mass/Vol] 100 mg/dL Normal [facility] Comment on above: Order Comment: Comme nts: NPO at [place] prior to lipid panel Result Comment: Bord jegsrq=446-483 mg/dL Higher Fomv=771 mg/dL or greater Performed By: #### L 500.4100, L100.0500, L500.2500 #### [facility] [address] [place], [address] Cholesterol in VLDL [Mass/Vol] 16 mg/dL Normal 5-40 [facility] Comment on above: Order Comment: Comme nts: NPO at [place] prior to lipid panel Performed By: #### L 500.4100, L100.0500, L500.2500 #### [facility] [address] [place], [address] Triglyceride [Mass/Vol] 78 mg/dL Normal [facility] Comment on above: Order Comment: Comme nts: NPO at [place] prior to lipid panel Result Comment: The drugs N-Acetylcysteine and Metamizole may falsely depress this assay. Normal range: <150 mg/dL Borderline High: 150-199 mg/dL High: 200-499 mg/dL Very High: >500 mg/dL Performed By: #### L 500.4100, L100.0500, L500.2500 #### [facility] [address] [place], [address] MCV (mean corpuscular volume ) determinationOrdered By: Matthew Oro on 09-11-2024 MCV (RBC) [Entitic vol] 91.7 fL 81-99 [facility] Mean corpuscular hemoglobin (MCH) determinationOrdered By: Matthew Oro on 09-11-2024 MCH (RBC) [Entitic mass] 30.3 pg 27.0-32.0 [facility] Mean corpuscular hemoglobin concentration (MCHC) determinationOrdered By: Matthew Oro on 09-11-2024 MCHC (RBC) [Mass/Vol] 33.0 g/dL 32-36 [facility] Mean platelet volume determi nationOrdered By: Matthew Oro on 09-11-2024 Platelet mean volume (Bld) [Entitic vol] 10.7 fL 6.2-12.0 [facility] Platelet countOrdered By: Urban Oro on 09-11-2024 Platelets (Bld) [#/Vol] 271 10*3/uL 150-450 [facility] Potassium measurement (mass/ volume)Ordered By: Matthew Oro on 09-11-2024 Potassium (Unsp spec) [Mass/Vol] 4.4 mmol/L 3.3-5.1 [facility] RBC Auto (Bld) [#/Vol]Ordere d By: Matthew Oro on 09-11-2024 RBC (Bld) [#/Vol] 4.33 10*6/uL 4.2-5.4 [facility] Screening total cholesterol/ high density lipoprotein (HDL) cholesterol ratioOrdered By: Matthew Oro on 09-11-2024 Cholesterol.total/Cholest felipe in HDL [Mass ratio] 3.03 {ratio} [facility] Serum creatinine measurement (mass/volume)Ordered By: Matthew Oro on 09-11-2024 Creatinine [Mass/Vol] 0.91 mg/dL 0.70-1.20 [facility] Serum glucose measurement (m ass/volume)Ordered By: Matthew Oro on 09-11-2024 Glucose [Mass/Vol] 118 mg/dL High 70-99 [facility] Serum or plasma calcium viktoria urement (mass/volume)Ordered By: Matthew Oro on 09-11-2024 Calcium [Mass/Vol] 8.8 mg/dL 7.6-11.0 [facility] Serum or plasma cholesterol in HDL measurement (mass/volume)Ordered By: Matthew Oro on 09-11-2024 Cholesterol in HDL [Mass/Vol] 57 mg/dL >40 [facility] Comment on above: National Cholesterol Education Program (NCEP) guidelines:<40 mg/dL: Low HDL-cholesterol (major risk factor for CHD)>= 60 mg/dL: High HDL-cholesterol (negative risk factor for CHD)HDL-cholesterol is affected by a number of factors, e.g. smoking, exercise, hormones, sex and age. Serum or plasma cholesterol measurement (mass/volume)Ordered By: Matthew Oro on 09-11-2024 Cholesterol [Mass/Vol] 172 mg/dL <201 [facility] Comment on above: Cholesterol level, D esirable <200 mg/dLBorderline high cholesterol 200-239 mg/dLHigh cholesterol >=240 mg/dLRecommendations of the NCEP Adult Treatment Panel for the following risk-cutoff thresholds for the [place] population. Serum or plasma urea nitroge n measurement (mass/volume)Ordered By: Matthew Oro on 09-11-2024 Urea nitrogen [Mass/Vol] 28 mg/dL High 4-19 [facility] Sodium levelOrdered By: All Oro on 09-11-2024 Sodium [Moles/Vol] 139 mmol/L 133-145 [facility] Triglycerides measurementOrd ered By: Matthew Oro on 09-11-2024 Triglyceride [Mass/Vol] 78 mg/dL <199 [facility] Comment on above: The drugs N-Acetylcy steine and Metamizole may falsely depress this assay. Normal range: <150 mg/dLBorderline High: 150-199 mg/dLHigh: 200-499 mg/dLVery High: >500 mg/dL White blood cell (WBC) count Ordered By: Matthew Oro on 09-11-2024 WBC (Bld) [#/Vol] 12.2 10*3/uL High 4.4-11.0 [facility] Absolute lymphocyte countOrd ered By: Teri Garcia on 09-10-2024 Lymphocytes Auto (Unsp spec) [#/Vol] 1.91 10*3/uL 0.83-4.51 [facility] Absolute neutrophil countOrd ered By: Teri Garcia on 09-10-2024 Neutrophils (Bld) [#/Vol] 8.3 10*3/uL High 2.0-7.7 [facility] Activated partial thrombopla stin time (aPTT) in platelet poor plasma by coagulation aOrdered By: Teri Garcia on 09-10-2024 aPTT Coag (PPP) [Time] 31.8 s 24.1-36.2 [facility] Anion gap in Serum or Plasma Ordered By: Teri Garcia on 09-10-2024 Anion gap [Moles/Vol] 12 mmol/L 5-15 [facility] Automated lymphocyte count a s percentage of total leukocytesOrdered By: Teri Garcia on 09-10-2024 Lymphocytes/100 WBC Auto (Unsp spec) 16.6 % Low 19-41 [facility] BUN/creatinine ratioOrdered By: Teri Garcia on 09-10-2024 Urea nitrogen/Creatinine [Mass ratio] 34.8 mg/mg High 01-17 [facility] Basic Metabolic Profile (BMP )on 09-10-2024 BUN/CRE 34.8 RATIO High 01-17 [facility] Comment on above: Performed By: #### L 500.2500, L100.0100, L501.4021, L300.3900, L300.4310 ####[facility] [address] [place], [address] Calcium [Mass/Vol] 8.7 mg/dL Normal 7.6-11.0 [facility] Comment on above: Performed By: #### L 500.2500, L100.0100, L501.4021, L300.3900, L300.4310 ####[facility] [address] [place], [address] Chloride [Moles/Vol] 103 mmol/L Normal 98-108 [facility] Comment on above: Performed By: #### L 500.2500, L100.0100, L501.4021, L300.3900, L300.4310 ####[facility] [address] [place], [address] CO2 [Moles/Vol] 21.8 mmol/L Normal 21.0-32.0 [facility] Comment on above: Performed By: #### L 500.2500, L100.0100, L501.4021, L300.3900, L300.4310 ####[facility] [address] [place], [address] Creatinine [Mass/Vol] 1.05 mg/dL Normal 0.70-1.20 [facility] Comment on above: Performed By: #### L 500.2500, L100.0100, L501.4021, L300.3900, L300.4310 ####[facility] [address] [place], [address] ECRCL 33.63 ml/min Low 50-250 [facility] Comment on above: Performed By: #### L 500.2500, L100.0100, L501.4021, L300.3900, L300.4310 ####[facility] [address] [place], [address] GAP 12 Normal 5-15 [facility] Comment on above: Performed By: #### L 500.2500, L100.0100, L501.4021, L300.3900, L300.4310 ####[facility] [address] [place], [address] GFR/1.73 sq M.predicted among non-blacks MDRD (S/P/Bld) [Vol rate/Area] 51 mL/min/{1.73_m2} Low >60 [facility] Comment on above: Result Comment: mL/m in/1.73m2 CKD-EPI Creatinine Equation (2020) Performed By: #### L 500.2500, L100.0100, L501.4021, L300.3900, L300.4310 ####[facility] [address] [place], [address] Glucose [Mass/Vol] 131 mg/dL High 70-99 [facility] Comment on above: Performed By: #### L 500.2500, L100.0100, L501.4021, L300.3900, L300.4310 ####[facility] [address] [place], [address] Potassium [Moles/Vol] 4.4 mmol/L Normal 3.3-5.1 [facility] Comment on above: Result Comment: Hemo lysis present, Results??could be affected. ?? Performed By: #### L 500.2500, L100.0100, L501.4021, L300.3900, L300.4310 ####[facility] [address] [place], [address] Sodium [Moles/Vol] 137 mmol/L Normal 133-145 [facility] Comment on above: Performed By: #### L 500.2500, L100.0100, L501.4021, L300.3900, L300.4310 ####[facility] [address] [place], [address] Urea nitrogen [Mass/Vol] 37 mg/dL High 4-19 [facility] Comment on above: Performed By: #### L 500.2500, L100.0100, L501.4021, L300.3900, L300.4310 ####[facility] [address] [place], [address] Basophil percentageOrdered B y: Teridinorah Garcia on 09-10-2024 Basophils/100 WBC (Bld) 0.4 % 0-1 [facility] Bilirubin Test strip Ql (U)O rdered By: Terielio Garcia on 09-10-2024 Bilirubin Ql (U) Negative Negative [facility] Brain without Contraston Brain without Contrast [facility] Imaging Services [address] [place] [address] Brain without Contrast MR#: [id number] Acct: [id number] Name: EZRA GONZALEZ Rep #: [id number] : 1935 F 89 From: Matthias Márquez MD PCP: Dr. Kvng Ochoa, DO Status: ADM MARIELOS Study: Brain without Contrast Date of Exam: 09/10/24 Exam# [id number] Ordering Dr: Matthew Oro DO PROCEDURE: BRAIN [...] Atrophy and mild microvascular changes Reading Location[facility] CC: Dr. Matthew Oro DO; Dr. Kvng Ochoa DO Collator Operator: Signed Normal [facility] CBC W/Diff, Automatedon 08-29 Absolute Lymph 1.91 X10 3/uL Normal 0.83-4.51 [facility] Comment on above: Performed By: #### L 500.2500, L100.0100, L501.4021, L300.3900, L300.4310 ####[facility] [address] [place], [address] Absolute Neut 8.3 X10 3/uL High 2.0-7.7 [facility] Comment on above: Performed By: #### L 500.2500, L100.0100, L501.4021, L300.3900, L300.4310 ####[facility] [address] [place], [address] Basophils/100 WBC (Bld) 0.4 % Normal 0-1 [facility] Comment on above: Performed By: #### L 500.2500, L100.0100, L501.4021, L300.3900, L300.4310 ####[facility] [address] [place], [address] Eosinophils/100 WBC (Bld) 1.2 % Normal 0-5 [facility] Comment on above: Performed By: #### L 500.2500, L100.0100, L501.4021, L300.3900, L300.4310 ####[facility] [address] [place], [address] Erythrocyte distribution width (RBC) [Ratio] 13.2 % Normal 11.6-14.6 [facility] Comment on above: Performed By: #### L 500.2500, L100.0100, L501.4021, L300.3900, L300.4310 ####[facility] [address] [place], [address] Hematocrit (Bld) [Volume fraction] 41.7 % Normal 37-47 [facility] Comment on above: Performed By: #### L 500.2500, L100.0100, L501.4021, L300.3900, L300.4310 ####[facility] [address] [place], [address] Hemoglobin (Bld) [Mass/Vol] 13.6 g/dL Normal 12.0-15.0 [facility] Comment on above: Performed By: #### L 500.2500, L100.0100, L501.4021, L300.3900, L300.4310 ####[facility] [address] [place], [address] IG% 0.400 Normal 0.0-0.9 [facility] Comment on above: Result Comment: IG% - Immature Granulocytes (promyelocytes, myelocytes and metamyelocytes) > 1% indicates that a LEFT SHIFT is Present. Performed By: #### L 500.2500, L100.0100, L501.4021, L300.3900, L300.4310 ####[facility] [address] [place], [address] Lymphocytes/100 WBC (Bld) 16.6 % Low 19-41 [facility] Comment on above: Performed By: #### L 500.2500, L100.0100, L501.4021, L300.3900, L300.4310 ####[facility] [address] [place], [address] MCH (RBC) [Entitic mass] 30.6 pg Normal 27.0-32.0 [facility] Comment on above: Performed By: #### L 500.2500, L100.0100, L501.4021, L300.3900, L300.4310 ####[facility] [address] [place], [address] MCHC (RBC) [Mass/Vol] 32.6 g/dL Normal 32-36 [facility] Comment on above: Performed By: #### L 500.2500, L100.0100, L501.4021, L300.3900, L300.4310 ####[facility] [address] [place], [address] MCV (RBC) [Entitic vol] 93.9 fL Normal 81-99 [facility] Comment on above: Performed By: #### L 500.2500, L100.0100, L501.4021, L300.3900, L300.4310 ####[facility] [address] [place], [address] Monocytes/100 WBC (Bld) 9.1 % Normal 0-10 [facility] Comment on above: Performed By: #### L 500.2500, L100.0100, L501.4021, L300.3900, L300.4310 ####[facility] [address] [place], [address] Neutrophils/100 WBC (Bld) 72.3 % High 47-70 [facility] Comment on above: Performed By: #### L 500.2500, L100.0100, L501.4021, L300.3900, L300.4310 ####[facility] [address] [place], [address] Nucleated RBC (Bld) [#/Vol] 0 10*3/uL Normal 0-5 [facility] Comment on above: Performed By: #### L 500.2500, L100.0100, L501.4021, L300.3900, L300.4310 ####[facility] [address] [place], [address] Platelet mean volume (Bld) [Entitic vol] 10.4 fL Normal 6.2-12.0 [facility] Comment on above: Performed By: #### L 500.2500, L100.0100, L501.4021, L300.3900, L300.4310 ####[facility] [address] [place], [address] Platelets (Bld) [#/Vol] 269 10*3/uL Normal 150-450 [facility] Comment on above: Performed By: #### L 500.2500, L100.0100, L501.4021, L300.3900, L300.4310 ####[facility] [address] [place], [address] RBC (Bld) [#/Vol] 4.44 10*6/uL Normal 4.2-5.4 [facility] Comment on above: Performed By: #### L 500.2500, L100.0100, L501.4021, L300.3900, L300.4310 ####[facility] [address] [place], [address] RDW SD 45.4 fl High 35.1-43.9 [facility] Comment on above: Performed By: #### L 500.2500, L100.0100, L501.4021, L300.3900, L300.4310 ####[facility] [address] [place], [address] WBC (Bld) [#/Vol] 11.5 10*3/uL High 4.4-11.0 [facility] Comment on above: Performed By: #### L 500.2500, L100.0100, L501.4021, L300.3900, L300.4310 ####[facility] [address] [place], [address] Carbon dioxide, total [Moles /volume] in Central venous bloodOrdered By: Teri Garcia on 09-10-2024 CO2 [Moles/Vol] 21.8 mmol/L 21.0-32.0 [facility] Chloride assayOrdered By: Antonio Garcia on 09-10-2024 Chloride [Moles/Vol] 103 mmol/L 98-108 [facility] Emergency Department Summary on 09-10-2024 Emergency Department Summary [facility] Medical Records Department [address] [place] [address] Emergency Department Summary 09/10/24 MR#: [id number] Acct: [id number] Name: EZRA GONZALEZ Rep #: [id number] : 1935 89 From: Teri Garcia DO [...] son Wilfredo (her eldest son) phone number [phone]. He states that she follows with Dr. Juarez (neurology) and he suspects that this could be epileptic episodes. He also tells me that he talk to her about 615 this morning and she seemed a little off with her mentation as well as her pronunciation. 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 Normal [facility] Eosinophil percentageOrdered By: Teri Garcia on 09-10-2024 Eosinophils/100 WBC (Bld) 1.2 % 0-5 [facility] Erythrocyte distribution wid th ratioOrdered By: Teri Garcia on 09-10-2024 Erythrocyte distribution width (RBC) [Ratio] 13.2 % 11.6-14.6 [facility] Erythrocyte distribution wid th standard deviationOrdered By: Teri Garcia on 09-10-2024 Erythrocyte distribution width (RBC) [Ratio] 45.4 fl High 35.1-43.9 [facility] Glomerular filtration rate ( GFR) estimation/1.73 sq m using serum, plasma, or whole bOrdered By: Teri Garcia on 09-10-2024 GFR/1.73 sq M.predicted among non-blacks MDRD (S/P/Bld) [Vol rate/Area] 51 mL/min/{1.73_m2} Low >60 [facility] Comment on above: mL/min/1.73m2 CKD-EP I Creatinine Equation (2020) H AND P Exam - [facility] 09-10-2024 H&P Exam - Hospitalist [facility] Medical Records Department [address] [place] [address] H P Exam - Hospitalist 09/10/24 1603 MR#: [id number] Acct: [id number] Name: EZRA GONZALEZ Rep #: [id number] : 1935 89 From: Matthew Oro DO PCP: Dr. Kvng Ochoa, DO Status:ADM MARIELOS Location: [place] [address] HPI - General General Date of Admission: 09/10/24 Date of Service: 09/10/24 Chief Complaint: Dysarthria HPI Narrative EZRA GONZALEZ, is a 89 F who presented to [facility] ED on 09/10/2024 with dysarthria. Patient lives at [facility] living at [place]. Has history of seizures and is on [...] any other acute concerns at this time. 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 Normal [facility] Hematocrit Auto (Bld) [Volum e fraction]Ordered By: Teri Garcia on 09-10-2024 Hematocrit (Bld) [Volume fraction] 41.7 % 37-47 [facility] Hemoglobin measurementOrdere d By: Teri Garcia on 09-10-2024 Hemoglobin (Bld) [Mass/Vol] 13.6 g/dL 12.0-15.0 [facility] Immature granulocytes/100 WB C Auto (Bld)Ordered By: Teri Garcia on 09-10-2024 Immature granulocytes/100 WBC (Bld) 0.400 % 0.0-0.9 [facility] Comment on above: IG% - Immature Granu locytes (promyelocytes, myelocytes and metamyelocytes) > 1% indicates that a LEFT SHIFT is Present. International normalized rat io (INR) calculationOrdered By: Teri Garcia on 09-10-2024 INR Coag (Bld) [Relative time] 2.4 {INR} [facility] Ketones Test strip Ql (U)Ord ered By: Teri Garcia on 09-10-2024 Ketones Ql (U) Negative Negative [facility] L499.0042on 09-10-2024 Trop T High Sen 17 ng/L High <=14 [facility] Comment on above: Performed By: #### L 499.0042 #### [facility] [address] [place], [address] L499.0043on 09-10-2024 Trop T High Sen 15 ng/L High <=14 [facility] Comment on above: Performed By: #### L 499.0043 #### [facility] [address] [place], [address] L501.4021on 09-10-2024 Trop T High Sen 18 ng/L High <=14 [facility] Comment on above: Performed By: #### L 500.2500, L100.0100, L501.4021, L300.3900, L300.4310 ####[facility] [address] [facility] [place], [address] MCV (mean corpuscular volume ) determinationOrdered By: Teri Garcia on 09-10-2024 MCV (RBC) [Entitic vol] 93.9 fL 81-99 [facility] Magnetic resonance imaging r eportOrdered By: Matthias Márquez on 09-10-2024 Study report [facility] Imaging Services [address] [place] [address] Brain without Contrast MR#: [id number] Acct: [id number] Name: EZRA GONZALEZ Rep #: [id number] : 1935 F 89 From: Bill Márquez MD PCP: Dr. Kvng Ochoa DO Status: ADM MARIELOS Study:Brain without Contrast Date of Exam: 09/10/24 Exam# [id number] Ordering Dr: Matthew Paetl DO PROCEDURE: BRAIN WITHOUT CONTRAST 09/10/2024 REASON [...] Atrophy and mild microvascular changes Reading Location: [facility] CC: Dr. Matthew Oro DO; Dr. Kvng Ochoa DO ~ Collator Operator: Signed [facility] Mean corpuscular hemoglobin (MCH) determinationOrdered By: Teri Garcia on 09-10-2024 MCH (RBC) [Entitic mass] 30.6 pg 27.0-32.0 [facility] Mean corpuscular hemoglobin concentration (MCHC) determinationOrdered By: Teri Garcia on 09-10-2024 MCHC (RBC) [Mass/Vol] 32.6 g/dL 32-36 [facility] Mean platelet volume determi nationOrdered By: Teri Garcia on 09-10-2024 Platelet mean volume (Bld) [Entitic vol] 10.4 fL 6.2-12.0 [facility] Microscopic analysis of urin e for red blood cells (RBC)Ordered By: Teri Garcia on 09-10-2024 Microscopic analysis of urine for red blood cells (RBC) 0 SEEN /hpf 0-5 [facility] Monocyte percentageOrdered B y: Teri Garcia on 09-10-2024 Monocytes/100 WBC (Bld) 9.1 % 0-10 [facility] Mucus LM Ql (Urine sed)Order ed By: Teri Garcia on 09-10-2024 Mucus Ql (Urine sed) 0 SEEN /hpf [facility] Neutrophil percentageOrdered By: Teri Garcia on 09-10-2024 Neutrophils/100 WBC (Bld) 72.3 % High 47-70 [facility] Nitrite Test strip Ql (U)Ord ered By: Teri Garcia on 09-10-2024 Nitrite Ql (U) Negative Negative [facility] Nucleated red blood cell per centageOrdered By: Teri Garcia on 09-10-2024 Nucleated RBC/100 WBC (Bld) [Ratio] 0 % 0-5 [facility] Partial Thromboplast Timeon 09-10-2024 aPTT Coag (Bld) [Time] 31.8 s Normal 24.1-36.2 [facility] Comment on above: Performed By: #### L 500.2500, L100.0100, L501.4021, L300.3900, L300.4310 ####[facility] [address] [place], [place], [address] Platelet countOrdered By: Antonio Garcia on 09-10-2024 Platelets (Bld) [#/Vol] 269 10*3/uL 150-450 [facility] Potassium measurement (mass/ volume)Ordered By: Teri Garcia on 09-10-2024 Potassium (Unsp spec) [Mass/Vol] 4.4 mmol/L 3.3-5.1 [facility] Comment on above: Hemolysis present, R esults could be affected. Protein Test strip Ql (U)Ord ered By: Teri Garcia on 09-10-2024 Protein Ql (U) 30 mg/dl High Negative [facility] Prothrombin Time w/INRon INR Coag (PPP) [Relative time] 2.4 {INR} Normal [facility] Comment on above: Performed By: #### L 500.2500, L100.0100, L501.4021, L300.3900, L300.4310 ####[facility] [address] [place], [place], [id number] PT Coag (PPP) [Time] 26.4 s High 11.7-14.9 [facility] Comment on above: Performed By: #### L 500.2500, L100.0100, L501.4021, L300.3900, L300.4310 ####[facility] [address] [place], [address] Prothrombin timeOrdered By: Teri Garcia on 09-10-2024 PT Coag (PPP) [Time] 26.4 s High 11.7-14.9 [facility] RBC Auto (Bld) [#/Vol]Ordere d By: Teri Garcia on 09-10-2024 RBC (Bld) [#/Vol] 4.44 10*6/uL 4.2-5.4 [facility] STROKE Brain/Head without Co nton 09-10-2024 STROKE Brain/Head without Cont [facility] Imaging Services [address] [place], [place] [address] STROKE Brain/Head without Cont MR#: [id number] Acct: [id number] Name: EZRA GONZALEZ Rep #: [id number] : 1935 F 89 From: Mio nayak MD PCP: Dr. Kvng Ochoa, DO Status: [facility] Study: STROKE Brain/Head without Cont Date of Exam: 0 09/10/24 Exam# [id number] Ordering Dr: Teri Garcia DO PROCEDURE: STROKE [...] 2:05 pm with readback verification. Reading Location: [id number] CC: Dr. Teri Garcia DO; Dr. Kvng Ochoa DO Collator Operator: Signed Normal [facility] STROKE CTA Head AND Neck W/C onon 09-10-2024 STROKE CTA Head AND Neck W/Con [facility] Imaging Services [address] [place] [address] STROKE CTA Head AND Neck W/Con MR#: [id number] Acct: [id number] Name: EZRA GONZALEZ Rep #: [id number] : 1935 F 89 From: Mio nayak MD PCP: Dr. Kvng Ochoa DO Status: REG ER Study: STROKE CTA Head AND Neck W/Con Date of Exam: 0 09/10/24 Exam# [id number] Ordering Dr: Teri Garcia DO PROCEDURE: STROKE [...] RIGHT Vertebral: Unremarkable. LEFT Vertebral: Unremarkable. Anatomy: [place] of Monique anatomy is normal. Aneurysm or [...] 3:01 pm with readback verification. Reading Location: [id number] CC: Dr. Teri Garcia DO; Dr. Kvng Ochoa DO Collator Operator: Signed Normal [facility] Serum creatinine measurement (mass/volume)Ordered By: Teri Garcia on 09-10-2024 Creatinine [Mass/Vol] 1.05 mg/dL 0.70-1.20 [facility] Serum glucose measurement (m ass/volume)Ordered By: Teri Garcia on 09-10-2024 Glucose [Mass/Vol] 131 mg/dL High 70-99 [facility] Serum or plasma calcium viktoria urement (mass/volume)Ordered By: Teri Garcia on 09-10-2024 Calcium [Mass/Vol] 8.7 mg/dL 7.6-11.0 [facility] Serum or plasma urea nitroge n measurement (mass/volume)Ordered By: Teri Garcia on 09-10-2024 Urea nitrogen [Mass/Vol] 37 mg/dL High 4-19 [facility] Sodium levelOrdered By: Ollie Garcia on 09-10-2024 Sodium [Moles/Vol] 137 mmol/L 133-145 [facility] Squamous epithelial cells de tection in urine sediment by light microscopyOrdered By: Teri Garcia on 09-10-2024 Epithelial cells.squamous LM Ql (Urine sed) 0-5 SEEN /hpf 5-10 [facility] Troponin T.cardiac [Mass/vol ume] in Serum or Plasma by High sensitivity methodOrdered By: Teri Garcia on 09-10-2024 Troponin T.cardiac High sensitivity method [Mass/Vol] 15 ng/L High <14 [facility] Troponin T.cardiac High sensitivity method [Mass/Vol] 17 ng/L High <14 [facility] Troponin T.cardiac High sensitivity method [Mass/Vol] 18 ng/L High <14 [facility] Urinalysis, Completeon 09-10 BACTERIA RARE Normal None Seen [facility] Comment on above: Order Comment: RANDY CTOR TO SPECIFY Performed By: #### L 400.0001 ####[facility] [address] [facility] [address] EPI,SQUAMOUS 0-5 SEEN Normal 5-10 [facility] Comment on above: Order Comment: RANDY CTOR TO SPECIFY Performed By: #### L 400.0001 ####[facility] [address] [facility] [address] WBC 10-25 SEEN Normal 0-5 [facility] Comment on above: Order Comment: RANDY CTOR TO SPECIFY Performed By: #### L 400.0001 ####[facility] [address] [place], [address] Mucus Ql (Urine sed) 0 SEEN Normal [facility] Comment on above: Order Comment: RANDY CTOR TO SPECIFY Performed By: #### L 400.0001 ####[facility] [address] [place], [address] RBC 0 SEEN Normal 0-5 [facility] Comment on above: Order Comment: COLLE CTOR TO SPECIFY Performed By: #### L 400.0001 ####[facility] [address] [place], [address] Urine clarityOrdered By: Lashaun Garcia on 09-10-2024 Clarity (U) Clear Clear [facility] Urine color determinationOrd ered By: Teri Garcia on 09-10-2024 Color (U) Straw Yellow [facility] Urine cultureOrdered By: Lashaun Garcia on 09-10-2024 Bacteria identified Cx Nom (U) Klebsiella pneumoniae sp pneum Abnormal [facility] Urine glucose detectionOrder ed By: Teri Garcia on 09-10-2024 Glucose Ql (U) Normal mg/dl Normal [facility] Urine leukocyte esterase det ection by dipstickOrdered By: Teri Garcia on 09-10-2024 Leukocyte esterase Test strip Ql (U) 500 /ul High Negative [facility] Urine pHOrdered By: Teri romero on 09-10-2024 pH (U) 5.0 [pH] 5.0 - 8.0 [facility] Urine sediment bacteria coun t by microscopy (number/high power field)Ordered By: Teri Garcia on 09-10-2024 Bacteria LM.HPF (Urine sed) [#/Area] RARE /hpf None Seen [facility] Urine specific gravity measu rementOrdered By: Teri Garcia on 09-10-2024 Specific gravity (U) [Rel density] 1.010 1.002-1.030 [facility] Urine urobilinogen measureme ntOrdered By: Teri Garcia on 09-10-2024 Urobilinogen Ql (U) Normal mg/dl Normal [facility] White blood cell (WBC) count Ordered By: Teri Garcia on 09-10-2024 WBC (Bld) [#/Vol] 11.5 10*3/uL High 4.4-11.0 [facility] White blood cell countOrdere d By: Teri Garcia on 09-10-2024 White blood cell count 10-25 SEEN /hpf 0-5 [facility] Absolute lymphocyte countOrd ered By: Anoop Blackmon on 09-08-2024 Lymphocytes Auto (Unsp spec) [#/Vol] 2.21 10*3/uL 0.83-4.51 [facility] Absolute neutrophil countOrd ered By: Anooppierce Crewso on 09-08-2024 Neutrophils (Bld) [#/Vol] 10.3 10*3/uL High 2.0-7.7 [facility] Anion gap in Serum or Plasma Ordered By: Anoop Blackmon on 09-08-2024 Anion gap [Moles/Vol] 11 mmol/L 5-15 [facility] Automated lymphocyte count a s percentage of total leukocytesOrdered By: Anoop Blackmon on 09-08-2024 Lymphocytes/100 WBC Auto (Unsp spec) 16.2 % Low 19-41 [facility] BUN/creatinine ratioOrdered By: Anoop Blackmon on 09-08-2024 Urea nitrogen/Creatinine [Mass ratio] 35.2 mg/mg High 10-20 [facility] Basic Metabolic Profile (BMP )on 09-08-2024 BUN/CRE 35.2 RATIO High 10-20 [facility] Comment on above: Performed By: #### L 100.0100, L500.2500, L300.3900, L3300.4400 ####[facility] [address] [place], [address] Calcium [Mass/Vol] 8.9 mg/dL Normal 7.6-11.0 [facility] Comment on above: Performed By: #### L 100.0100, L500.2500, L300.3900, L3300.4400 ####[facility] [address] [place], [address] Chloride [Moles/Vol] 105 mmol/L Normal 98-108 [facility] Comment on above: Performed By: #### L 100.0100, L500.2500, L300.3900, L3300.4400 ####[facility] [address] [place], [address] CO2 [Moles/Vol] 22.4 mmol/L Normal 21.0-32.0 [facility] Comment on above: Performed By: #### L 100.0100, L500.2500, L300.3900, L3300.4400 ####[facility] [address] [place], [address] Creatinine [Mass/Vol] 1.00 mg/dL Normal 0.70-1.20 [facility] Comment on above: Performed By: #### L 100.0100, L500.2500, L300.3900, L3300.4400 ####[facility] [address] [place], [address] ECRCL 39.57 ml/min Low 50-250 [facility] Comment on above: Performed By: #### L 100.0100, L500.2500, L300.3900, L3300.4400 ####[facility] [address] [place], [address] GAP 11 Normal 5-15 [facility] Comment on above: Performed By: #### L 100.0100, L500.2500, L300.3900, L3300.4400 ####[facility] [address] [place], [address] GFR/1.73 sq M.predicted among non-blacks MDRD (S/P/Bld) [Vol rate/Area] 54 mL/min/{1.73_m2} Low >60 [facility] Comment on above: Result Comment: mL/m in/1.73m2 CKD-EPI Creatinine Equation (2020) Performed By: #### L 100.0100, L500.2500, L300.3900, L3300.4400 ####[facility] [address] [place], [address] Glucose [Mass/Vol] 149 mg/dL High 70-99 [facility] Comment on above: Performed By: #### L 100.0100, L500.2500, L300.3900, L3300.4400 ####[facility] [address] [place], [address] Potassium [Moles/Vol] 4.7 mmol/L Normal 3.3-5.1 [facility] Comment on above: Performed By: #### L 100.0100, L500.2500, L300.3900, L3300.4400 ####[facility] [address] [place], [address] Sodium [Moles/Vol] 138 mmol/L Normal 133-145 [facility] Comment on above: Performed By: #### L 100.0100, L500.2500, L300.3900, L3300.4400 ####[facility] [address] [place], [address] Urea nitrogen [Mass/Vol] 35 mg/dL High 4-19 [facility] Comment on above: Performed By: #### L 100.0100, L500.2500, L300.3900, L3300.4400 ####[facility] [address] [place], [address] Basophil percentageOrdered B y: Anoop Blackmon on 09-08-2024 Basophils/100 WBC (Bld) 0.2 % 0-1 [facility] CBC W/Diff, Automatedon 08-29 Absolute Lymph 2.21 X10 3/uL Normal 0.83-4.51 [facility] Comment on above: Performed By: #### L 100.0100, L500.2500, L300.3900, L3300.4400 #### [facility] [address] [place], [address] Absolute Neut 10.3 X10 3/uL High 2.0-7.7 [facility] Comment on above: Performed By: #### L 100.0100, L500.2500, L300.3900, L3300.4400 #### [facility] [address] [place], [address] Basophils/100 WBC (Bld) 0.2 % Normal 0-1 [facility] Comment on above: Performed By: #### L 100.0100, L500.2500, L300.3900, L3300.4400 #### [facility] [address] [place], [address] Eosinophils/100 WBC (Bld) 0.7 % Normal 0-5 [facility] Comment on above: Performed By: #### L 100.0100, L500.2500, L300.3900, L3300.4400 #### [facility] [address] [place], [address] Erythrocyte distribution width (RBC) [Ratio] 13.2 % Normal 11.6-14.6 [facility] Comment on above: Performed By: #### L 100.0100, L500.2500, L300.3900, L3300.4400 #### [facility] [address] [place], [address] Hematocrit (Bld) [Volume fraction] 41.4 % Normal 37-47 [facility] Comment on above: Performed By: #### L 100.0100, L500.2500, L300.3900, L3300.4400 #### [facility] Laboratory [address] [place], [address] Hemoglobin (Bld) [Mass/Vol] 13.8 g/dL Normal 12.0-15.0 [facility] Comment on above: Performed By: #### L 100.0100, L500.2500, L300.3900, L3300.4400 #### [facility] [address] [place], [address] IG% 0.400 Normal 0.0-0.9 [facility] Comment on above: Result Comment: IG% - Immature Granulocytes (promyelocytes, myelocytes and metamyelocytes) > 1% indicates that a LEFT SHIFT is Present. Performed By: #### L 100.0100, L500.2500, L300.3900, L3300.4400 #### [facility] [address] [place], [address] Lymphocytes/100 WBC (Bld) 16.2 % Low 19-41 [facility] Comment on above: Performed By: #### L 100.0100, L500.2500, L300.3900, L3300.4400 #### [facility] [address] [place], [address] MCH (RBC) [Entitic mass] 31.4 pg Normal 27.0-32.0 [facility] Comment on above: Performed By: #### L 100.0100, L500.2500, L300.3900, L3300.4400 #### [facility] [address] [place], [address] MCHC (RBC) [Mass/Vol] 33.3 g/dL Normal 32-36 [facility] Comment on above: Performed By: #### L 100.0100, L500.2500, L300.3900, L3300.4400 #### [facility] [address] [place], [address] MCV (RBC) [Entitic vol] 94.1 fL Normal 81-99 [facility] Comment on above: Performed By: #### L 100.0100, L500.2500, L300.3900, L3300.4400 #### [facility] [address] [place], [address] Monocytes/100 WBC (Bld) 6.6 % Normal 0-10 [facility] Comment on above: Performed By: #### L 100.0100, L500.2500, L300.3900, L3300.4400 #### [facility] [address] [place], [address] Neutrophils/100 WBC (Bld) 75.9 % High 47-70 [facility] Comment on above: Performed By: #### L 100.0100, L500.2500, L300.3900, L3300.4400 #### [facility] [address] [place], [address] Nucleated RBC (Bld) [#/Vol] 0 10*3/uL Normal 0-5 [facility] Comment on above: Performed By: #### L 100.0100, L500.2500, L300.3900, L3300.4400 #### [facility] [address] [place], [address] Platelet mean volume (Bld) [Entitic vol] 10.8 fL Normal 6.2-12.0 [facility] Comment on above: Performed By: #### L 100.0100, L500.2500, L300.3900, L3300.4400 #### [facility] [address] [place], [address] Platelets (Bld) [#/Vol] 326 10*3/uL Normal 150-450 [facility] Comment on above: Performed By: #### L 100.0100, L500.2500, L300.3900, L3300.4400 #### [facility] [address] [place], [address] RBC (Bld) [#/Vol] 4.40 10*6/uL Normal 4.2-5.4 [facility] Comment on above: Performed By: #### L 100.0100, L500.2500, L300.3900, L3300.4400 #### [facility] [address] [place], [address] RDW SD 45.2 fl High 35.1-43.9 [facility] Comment on above: Performed By: #### L 100.0100, L500.2500, L300.3900, L3300.4400 #### [facility] [address] [place], [address] WBC (Bld) [#/Vol] 13.6 10*3/uL High 4.4-11.0 [facility] Comment on above: Performed By: #### L 100.0100, L500.2500, L300.3900, L3300.4400 #### [facility] [address] [place], [address] Carbon dioxide, total [Moles /volume] in Central venous bloodOrdered By: Anoop Blackmon on 09-08-2024 CO2 [Moles/Vol] 22.4 mmol/L 21.0-32.0 [facility] Chloride assayOrdered By: Monserrat Blackmon on 09-08-2024 Chloride [Moles/Vol] 105 mmol/L 98-108 [facility] Emergency Department Summary on 09-08-2024 Emergency Department Summary [facility] Medical Records Department [address] [place] [address] Emergency Department Summary 09/08/24 MR#: [id number] Acct: [id number] Name: EZRA GONZALEZ Rep #: [id number] : 1935 89 From: Anoop Blackmon MD [...] Spinal stenosis Osteoarthritis 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 Normal [facility] Eosinophil percentageOrdered By: Anoop Blackmon on 09-08-2024 Eosinophils/100 WBC (Bld) 0.7 % 0-5 [facility] Erythrocyte distribution wid th ratioOrdered By: Anoop Blackmon on 09-08-2024 Erythrocyte distribution width (RBC) [Ratio] 13.2 % 11.6-14.6 [facility] Erythrocyte distribution wid th standard deviationOrdered By: Anoop Blackmon on 09-08-2024 Erythrocyte distribution width (RBC) [Ratio] 45.2 fl High 35.1-43.9 [facility] Glomerular filtration rate ( GFR) estimation/1.73 sq m using serum, plasma, or whole bOrdered By: Anoop Blackmon on 09-08-2024 GFR/1.73 sq M.predicted among non-blacks MDRD (S/P/Bld) [Vol rate/Area] 54 mL/min/{1.73_m2} Low >60 [facility] Comment on above: mL/min/1.73m2 CKD-EP I Creatinine Equation (2020) Hematocrit Auto (Bld) [Volum e fraction]Ordered By: Anoop Blackmon on 09-08-2024 Hematocrit (Bld) [Volume fraction] 41.4 % 37-47 [facility] Hemoglobin measurementOrdere d By: Anooppierce Blackmon on 09-08-2024 Hemoglobin (Bld) [Mass/Vol] 13.8 g/dL 12.0-15.0 [facility] Immature granulocytes/100 WB C Auto (Bld)Ordered By: Anooppierce Blackmon on 09-08-2024 Immature granulocytes/100 WBC (Bld) 0.400 % 0.0-0.9 [facility] Comment on above: IG% - Immature Granu locytes (promyelocytes, myelocytes and metamyelocytes) > 1% indicates that a LEFT SHIFT is Present. International normalized rat io (INR) calculationOrdered By: Anoop Blackmon on 09-08-2024 INR Coag (Bld) [Relative time] 2.9 {INR} [facility] MCV (mean corpuscular volume ) determinationOrdered By: Anoop Blackmon on 09-08-2024 MCV (RBC) [Entitic vol] 94.1 fL 81-99 [facility] Mean corpuscular hemoglobin (MCH) determinationOrdered By: Anooppierce Blackmon on 09-08-2024 MCH (RBC) [Entitic mass] 31.4 pg 27.0-32.0 [facility] Mean corpuscular hemoglobin concentration (MCHC) determinationOrdered By: Anooppierce Blackmon on 09-08-2024 MCHC (RBC) [Mass/Vol] 33.3 g/dL 32-36 [facility] Mean platelet volume determi nationOrdered By: Anoop Blackmon on 09-08-2024 Platelet mean volume (Bld) [Entitic vol] 10.8 fL 6.2-12.0 [facility] Monocyte percentageOrdered B y: Anooppierce Crewso on 09-08-2024 Monocytes/100 WBC (Bld) 6.6 % 0-10 [facility] Neutrophil percentageOrdered By: Anooppierce Crewso on 09-08-2024 Neutrophils/100 WBC (Bld) 75.9 % High 47-70 [facility] Nucleated red blood cell per centageOrdered By: Anooppierce Crewso on 09-08-2024 Nucleated RBC/100 WBC (Bld) [Ratio] 0 % 0-5 [facility] Platelet countOrdered By: [facility] Blackmon on 09-08-2024 Platelets (Bld) [#/Vol] 326 10*3/uL 150-450 [facility] Potassium measurement (mass/ volume)Ordered By: Anoop Blackmon on 09-08-2024 Potassium (Unsp spec) [Mass/Vol] 4.7 mmol/L 3.3-5.1 [facility] Prothrombin Time w/INRon INR Coag (PPP) [Relative time] 2.9 {INR} Normal [facility] Comment on above: Performed By: #### L 100.0100, L500.2500, L300.3900, L3300.4400 ####[facility] [address] [place], [address] PT Coag (PPP) [Time] 30.7 s High 11.7-14.9 [facility] Comment on above: Performed By: #### L 100.0100, L500.2500, L300.3900, L3300.4400 ####[facility] [address] [place], [address] Prothrombin timeOrdered By: Anoop Blackmon on 09-08-2024 PT Coag (PPP) [Time] 30.7 s High 11.7-14.9 [facility] RBC Auto (Bld) [#/Vol]Ordere d By: Anoop Blackmon on 09-08-2024 RBC (Bld) [#/Vol] 4.40 10*6/uL 4.2-5.4 [facility] Serum creatinine measurement (mass/volume)Ordered By: Anoop Blackmon on 09-08-2024 Creatinine [Mass/Vol] 1.00 mg/dL 0.70-1.20 [facility] Serum glucose measurement (m ass/volume)Ordered By: Anoop Blackmon on 09-08-2024 Glucose [Mass/Vol] 149 mg/dL High 70-99 [facility] Serum or plasma calcium viktoria urement (mass/volume)Ordered By: Anoop Blackmon on 09-08-2024 Calcium [Mass/Vol] 8.9 mg/dL 7.6-11.0 [facility] Serum or plasma lamotrigine measurement (mass/volume)Ordered By: Anooppierce Blackmon on 09-08-2024 lamoTRIgine [Mass/Vol] 1.2 ug/mL Low 2.0-20.0 [facility] Comment on above: Detection Limit = 1. 0Performed at: [facility] [id number] Director: Brandon Wells MD, Phone: [phone] Serum or plasma urea nitroge n measurement (mass/volume)Ordered By: Anoop Blackmon on 09-08-2024 Urea nitrogen [Mass/Vol] 35 mg/dL High 4-19 [facility] Sodium levelOrdered By: Anoop Blackmon on 09-08-2024 Sodium [Moles/Vol] 138 mmol/L 133-145 [facility] White blood cell (WBC) count Ordered By: Anoop Blackmon on 09-08-2024 WBC (Bld) [#/Vol] 13.6 10*3/uL High 4.4-11.0 [facility] International normalized rat io (INR) calculationOrdered By: Cesar Cole on 08-18-2024 INR Coag (Bld) [Relative time] 2.6 {INR} [facility] Prothrombin timeOrdered By: Cesar Cole on 08-18-2024 PT Coag (PPP) [Time] 28.1 s High 11.7-14.9 [facility] International normalized rat io (INR) calculationOrdered By: Cesar Cole on 07-19-2024 INR Coag (Bld) [Relative time] 2.2 {INR} [facility] Prothrombin timeOrdered By: Cesar Cole on 07-19-2024 PT Coag (PPP) [Time] 25.3 s High 11.7-14.9 [facility] Cardiology Visit Reporton Cardiology Visit Report [facility] [address] [place] [address] OFFICE VISIT Date of Service: 07/01/24 MR#: [id number] Acct: [id number] Name: EZRA GONZALEZ Rep #: [id number] : 1935 Provider: Dr. Cesar Cole MD Age/Sex: 89/F Location: [facility] Status: Signed HPI HPI History of [...] atrial fibrillation. She is a reside at [facility]. 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 Normal [facility] International normalized rat io (INR) calculationOrdered By: Kvng Ochoa on 06-16-2024 INR Coag (Bld) [Relative time] 2.4 {INR} [facility] Prothrombin timeOrdered By: Kvng Ochoa on 06-16-2024 PT Coag (PPP) [Time] 26.6 s High 11.7-14.9 [facility] Absolute lymphocyte countOrd ered By: Kvng Ochoa on 06-09-2024 Lymphocytes Auto (Unsp spec) [#/Vol] 2.06 10*3/uL 0.83-4.51 [facility] Absolute neutrophil countOrd ered By: Kvng Ochoa on 06-09-2024 Neutrophils (Bld) [#/Vol] 5.6 10*3/uL 2.0-7.7 [facility] Anion gap in Serum or Plasma Ordered By: Kvng Ochoa on 06-09-2024 Anion gap [Moles/Vol] 13 mmol/L 5-15 [facility] Automated lymphocyte count a s percentage of total leukocytesOrdered By: Kvng Ochoa on 06-09-2024 Lymphocytes/100 WBC Auto (Unsp spec) 23.0 % 19-41 [facility] BUN/creatinine ratioOrdered By: Kvng Ochoa on 06-09-2024 Urea nitrogen/Creatinine [Mass ratio] 21.5 mg/mg High 10-20 [facility] Basophil percentageOrdered B y: Kvng Ochoa on 06-09-2024 Basophils/100 WBC (Bld) 0.6 % 0-1 [facility] Carbon dioxide, total [Moles /volume] in Central venous bloodOrdered By: Kvng Ochoa on 06-09-2024 CO2 [Moles/Vol] 22.4 mmol/L 21.0-32.0 [facility] Chloride assayOrdered By: Costa Ochoa on 06-09-2024 Chloride [Moles/Vol] 108 mmol/L 98-108 [facility] Eosinophil percentageOrdered By: Kvng Ochoa on 06-09-2024 Eosinophils/100 WBC (Bld) 4.8 % 0-5 [facility] Erythrocyte distribution wid th ratioOrdered By: Kvng Ochoa on 06-09-2024 Erythrocyte distribution width (RBC) [Ratio] 14.6 % 11.6-14.6 [facility] Erythrocyte distribution wid th standard deviationOrdered By: Kvng Ochoa on 06-09-2024 Erythrocyte distribution width (RBC) [Entitic vol] 49.2 fL High 35.1-43.9 [facility] Erythrocyte distribution width (RBC) [Ratio] 49.2 fl High 35.1-43.9 [facility] GFR/1.73 sq M.predicted sonia g non-blacks MDRD (S/P/Bld) [Vol rate/Area]Ordered By: Kvng Ochoa on 06-09-2024 Estimated GFR (MDRD) Non-Af Amer 59 Low >60 [facility] Comment on above: mL/min/1.73m2 CKD-EP I Creatinine Equation (2020) Glomerular filtration rate ( GFR) estimation/1.73 sq m using serum, plasma, or whole bOrdered By: Kvng Ochoa on 06-09-2024 GFR/1.73 sq M.predicted among non-blacks MDRD (S/P/Bld) [Vol rate/Area] 59 mL/min/{1.73_m2} Low >60 [facility] Comment on above: mL/min/1.73m2 CKD-EP I Creatinine Equation (2020) Hematocrit Auto (Bld) [Volum e fraction]Ordered By: Kvng Ochoa on 06-09-2024 Hematocrit (Bld) [Volume fraction] 38.3 % 37-47 [facility] Hemoglobin A1c percentageOrd ered By: Kvng Ochoa on 06-09-2024 HbA1c (Bld) [Mass fraction] 6.5 % >5.7 [facility] Hemoglobin measurementOrdere d By: Kvng Ochoa on 06-09-2024 Hemoglobin (Bld) [Mass/Vol] 12.4 g/dL 12.0-15.0 [facility] Immature granulocytes/100 WB C Auto (Bld)Ordered By: Kvng Ochoa on 06-09-2024 Immature granulocytes/100 WBC (Bld) 0.200 % 0.0-0.9 [facility] Comment on above: IG% - Immature Granu locytes (promyelocytes, myelocytes and metamyelocytes) > 1% indicates that a LEFT SHIFT is Present. Lymphocytes Auto (Unsp spec) [#/Vol]Ordered By: Kvng Ochoa on 06-09-2024 Lymphocytes (Bld) [#/Vol] 2.06 10*3/uL 0.83-4.5 1 [facility] Lymphocytes/100 WBC Auto (Un sp spec)Ordered By: Kvng Ochoa on 06-09-2024 Lymphocytes/100 WBC (Bld) 23.0 % 19-41 [facility] MCV (mean corpuscular volume ) determinationOrdered By: Kvng Ochoa on 06-09-2024 MCV (RBC) [Entitic vol] 91.8 fL 81-99 [facility] Mean corpuscular hemoglobin (MCH) determinationOrdered By: Kvng Ochoa on 06-09-2024 MCH (RBC) [Entitic mass] 29.7 pg 27.0-32.0 [facility] Mean corpuscular hemoglobin concentration (MCHC) determinationOrdered By: Kvng Ochoa on 06-09-2024 MCHC (RBC) [Mass/Vol] 32.4 g/dL 32-36 [facility] Mean platelet volume determi nationOrdered By: Kvng Ochoa on 06-09-2024 Platelet mean volume (Bld) [Entitic vol] 10.2 fL 6.2-12.0 [facility] Monocyte percentageOrdered B y: Kvng Ochoa on 06-09-2024 Monocytes/100 WBC (Bld) 8.6 % 0-10 [facility] Neutrophil percentageOrdered By: Kvng Ochoa on 06-09-2024 Neutrophils/100 WBC (Bld) 62.8 % 47-70 [facility] Nucleated red blood cell per centageOrdered By: Kvng Ochoa on 06-09-2024 Nucleated RBC/100 WBC (Bld) [Ratio] 0 % 0-5 [facility] Platelet countOrdered By: Costa Ochoa on 06-09-2024 Platelets (Bld) [#/Vol] 323 10*3/uL 150-450 [facility] Potassium (Unsp spec) [Mass/ Vol]Ordered By: Kvng Ochoa on 06-09-2024 Potassium [Moles/Vol] 4.7 mmol/L 3.3-5.1 [facility] Potassium measurement (mass/ volume)Ordered By: Kvng Ochoa on 06-09-2024 Potassium (Unsp spec) [Mass/Vol] 4.7 mmol/L 3.3-5.1 [facility] RBC Auto (Bld) [#/Vol]Ordere d By: Kvng Ochoa on 06-09-2024 RBC (Bld) [#/Vol] 4.17 10*6/uL Low 4.2-5.4 [facility] Serum creatinine measurement (mass/volume)Ordered By: Kvng Ochoa on 06-09-2024 Creatinine [Mass/Vol] 0.94 mg/dL 0.70-1.20 [facility] Serum glucose measurement (m ass/volume)Ordered By: Kvng Ochoa on 06-09-2024 Glucose [Mass/Vol] 137 mg/dL High 70-99 [facility] Serum or plasma calcium viktoria urement (mass/volume)Ordered By: Kvng Ochoa on 06-09-2024 Calcium [Mass/Vol] 8.9 mg/dL 7.6-11.0 [facility] Serum or plasma urea nitroge n measurement (mass/volume)Ordered By: Kvng cOhoa on 06-09-2024 Urea nitrogen [Mass/Vol] 20 mg/dL High 4-19 [facility] Sodium levelOrdered By: Dru Ochoa on 06-09-2024 Sodium [Moles/Vol] 143 mmol/L 133-145 [facility] White blood cell (WBC) count Ordered By: Kvng Ochoa on 06-09-2024 WBC (Bld) [#/Vol] 9.0 10*3/uL 4.4-11.0 [facility] INR Coag (BldC) [Relative ti me]Ordered By: Cesar Cole on 05-19-2024 INR Coag (Bld) [Relative time] 2.9 {INR} [facility] Comment on above: Critical Value > 4.0 International normalized rat io (INR) measurement by fingerstickOrdered By: Cesar Cole on 05-19-2024 INR Coag (BldC) [Relative time] 2.9 [facility] Comment on above: Critical Value > 4.0 PT Coag (Bld) [Time]Ordered By: Cesar Cole on 05-19-2024 Bedside Prothrombin Time 30.4 SEC High 11.7-14.9 [facility] Whole blood prothrombin time Ordered By: Cesar Cole on 05-19-2024 PT Coag (Bld) [Time] 30.4 s High 11.7-14.9 [facility] Serum or plasma lamotrigine measurement (mass/volume)Ordered By: Anant Juarez on 05-12-2024 lamoTRIgine [Mass/Vol] 1.8 ug/mL Low 2.0-20.0 [facility] Comment on above: Detection Limit = 1. 0Performed at: [facility] [address] [id number] Director: Brandon Wells MD, Phone: [phone] Venous blood ammonia measure mentOrdered By: Anant Juarez on 05-12-2024 Ammonia (P) [Moles/Vol] 17.0 umol/L [facility] lamoTRIgine [Mass/Vol]Ordere d By: Anant Juarez on 05-12-2024 Lamotrigine (Lamictal) Level 1.8 ug/mL Low 2.0-20.0 [facility] Comment on above: Detection Limit = 1. 0Performed at: [facility] [address] [facility], [place], [place] [id number] Director: Brandon Wells MD, Phone: [phone] Neurology Visit Reporton Neurology Visit Report [facility] [address] [facility] [facility], [address] [place] [address] OFFICE VISIT Date of Service: 05/10/24 MR#: [id number] Acct: [id number] Name: EZRA GONZALEZ Rep #: [id number] : 1935 Provider: Dr. Anant baez MD Age/Sex: 88/F Location: [facility]. 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 She has become lost while driving [...] nature. Th (more content not included)... Normal [facility] INR Coag (BldC) [Relative ti me]Ordered By: Cesar Cole on 05-05-2024 INR Coag (Bld) [Relative time] 2.5 {INR} [facility] Comment on above: Critical Value > 4.0 PT Coag (Bld) [Time]Ordered By: Cesar Cole on 05-05-2024 Bedside Prothrombin Time 26.9 SEC High 11.7-14.9 [facility] International normalized rat io (INR) calculationOrdered By: Kvng Ochoa on 04-28-2024 INR Coag (Bld) [Relative time] 3.4 {INR} [facility] Prothrombin timeOrdered By: Kvng Ochoa on 04-28-2024 PT Coag (PPP) [Time] 35.4 s High 11.7-14.9 [facility] International normalized rat io (INR) calculationOrdered By: Kvng Ochoa on 04-14-2024 INR Coag (Bld) [Relative time] 3.0 {INR} [facility] Prothrombin timeOrdered By: Kvng Ochoa on 04-14-2024 PT Coag (PPP) [Time] 31.4 s High 11.7-14.9 [facility] Blood urea nitrogen (BUN)/cr eatinine ratioOrdered By: Kvng Ochoa on 04-09-2024 Urea nitrogen/Creatinine [Mass ratio] 13.5 mg/mg 01-17 [facility] Carbon dioxide measurementOr dered By: Kvng Ochoa on 04-09-2024 CO2 [Moles/Vol] 28.0 mmol/L 21.0-32.0 [facility] Chloride measurementOrdered By: Kvng Ochoa on 04-09-2024 Chloride [Moles/Vol] 106 mmol/L 98-107 [facility] Estimated glomerular filtrat ion rate (GFR) AmericanOrdered By: Kvng Ochoa on 04-09-2024 Estimated GFR (MDRD) Amer 70 mL/min >60 [facility] Comment on above: GFR Calc Glomerular filtration rate ( GFR) estimationOrdered By: Kvng Ochoa on 04-09-2024 Estimated GFR (MDRD) Non-Af Amer 58 mL/min Low >60 [facility] Comment on above: Non- GFR Calc Glucose measurementOrdered B y: Kvng Ochoa on 04-09-2024 Glucose [Mass/Vol] 116 mg/dL High 74-106 [facility] Comment on above: Fasting Glucose resu lt from 100 to 125 mg/dL suggests IMPAIRED HOMEOSTASIS per A.D.A. criteria. Potassium measurementOrdered By: Kvng Ochoa on 04-09-2024 Potassium [Moles/Vol] 4.3 mmol/L 3.5-5.1 [facility] Serum anion gap measurementO rdered By: Kvng Ochoa on 04-09-2024 Anion gap [Moles/Vol] 3 mmol/L Low 5-15 [facility] Serum or plasma calcium viktoria urement (mass/volume)Ordered By: Kvng Ochoa on 04-09-2024 Calcium [Mass/Vol] 8.8 mg/dL 8.5-10.1 [facility] Serum or plasma creatinine m easurement (mass/volume)Ordered By: Kvng Ochoa on 04-09-2024 Creatinine [Mass/Vol] 0.96 mg/dL 0.55-1.02 [facility] Comment on above: The validity of the calculated GFR & GFRAA in patients over 70 years has not been determined. Clinical correlation is essential. Serum or plasma urea nitroge n measurement (mass/volume)Ordered By: Kvng Ochoa on 04-09-2024 Urea nitrogen [Mass/Vol] 13 mg/dL 7-18 [facility] Sodium levelOrdered By: Dru Ochoa on 04-09-2024 Sodium [Moles/Vol] 137 mmol/L 136-145 [facility] International normalized rat io (INR) calculationOrdered By: Kvng Ochoa on 04-06-2024 INR Coag (Bld) [Relative time] 2.6 {INR} [facility] Prothrombin timeOrdered By: Kvng Ochoa on 04-06-2024 PT Coag (PPP) [Time] 28.8 s High 11.7-14.9 [facility] INR Coag (BldC) [Relative ti me]Ordered By: Kvng Ochoa on 04-05-2024 INR Coag (Bld) [Relative time] 3.5 {INR} [facility] Comment on above: Critical Value > 4.0 PT Coag (Bld) [Time]Ordered By: Kvng Ochoa on 04-05-2024 Bedside Prothrombin Time 35.4 SEC High 11.7-14.9 [facility] International normalized rat io (INR) calculationOrdered By: Kvng Ochoa on 03-29-2024 INR Coag (Bld) [Relative time] 1.5 {INR} [facility] Prothrombin timeOrdered By: Kvng Ochoa on 03-29-2024 PT Coag (PPP) [Time] 17.9 s High 11.7-14.9 [facility] INR Coag (BldC) [Relative ti me]Ordered By: Kvng Ochoa on 03-26-2024 INR Coag (Bld) [Relative time] 3.4 {INR} [facility] Comment on above: Critical Value > 4.0 PT Coag (Bld) [Time]Ordered By: Kvng Ochoa on 03-26-2024 Bedside Prothrombin Time 34.4 SEC High 11.7-14.9 [facility] INR Coag (BldC) [Relative ti me]Ordered By: Kvng Ochoa on 03-25-2024 INR Coag (Bld) [Relative time] 3.8 {INR} [facility] Comment on above: Critical Value > 4.0 PT Coag (Bld) [Time]Ordered By: Kvng Ochoa on 03-25-2024 Bedside Prothrombin Time 37.8 SEC High 11.7-14.9 [facility] International normalized rat io (INR) calculationOrdered By: Kvng Ochoa on 03-19-2024 INR Coag (Bld) [Relative time] 3.0 {INR} [facility] Prothrombin timeOrdered By: Kvng Ochoa on 03-19-2024 PT Coag (PPP) [Time] 30.7 s High 11.7-14.9 [facility] INR Coag (BldC) [Relative ti me]Ordered By: Kvng Ochoa on 03-17-2024 INR Coag (Bld) [Relative time] 3.3 {INR} [facility] Comment on above: Critical Value > 4.0 PT Coag (Bld) [Time]Ordered By: Kvng Ochoa on 03-17-2024 Bedside Prothrombin Time 34.2 SEC High 11.7-14.9 [facility] INR Coag (BldC) [Relative ti me]Ordered By: Kvng Ochoa on 03-10-2024 INR Coag (Bld) [Relative time] 2.4 {INR} [facility] Comment on above: Critical Value > 4.0 PT Coag (Bld) [Time]Ordered By: Kvng Ochoa on 03-10-2024 Bedside Prothrombin Time 25.4 SEC High 11.7-14.9 [facility] International normalized rat io (INR) calculationOrdered By: Kvng Ochoa on 03-08-2024 INR Coag (Bld) [Relative time] 1.8 {INR} [facility] Prothrombin timeOrdered By: Kvng Ochoa on 03-08-2024 PT Coag (PPP) [Time] 21.1 s High 11.7-14.9 [facility] INR Coag (BldC) [Relative ti me]Ordered By: Kvng Ochoa on 03-04-2024 INR Coag (Bld) [Relative time] 1.8 {INR} [facility] Comment on above: Critical Value > 4.0 PT Coag (Bld) [Time]Ordered By: Kvng Ochoa on 03-04-2024 Bedside Prothrombin Time 20.2 SEC High 11.7-14.9 [facility] INR Coag (BldC) [Relative ti me]Ordered By: Kvng Ochoa on 02-05-2024 INR Coag (Bld) [Relative time] 2.2 {INR} [facility] Comment on above: Critical Value > 4.0 PT Coag (Bld) [Time]Ordered By: Kvng Ochoa on 02-05-2024 Bedside Prothrombin Time 22.8 SEC High 11.7-14.9 [facility] Capillary blood internationa l normalized ratio (INR)Ordered By: Alexandra Hagen on 06-30-2023 INR Coag (BldC) [Relative time] 2.4 [facility] Comment on above: Critical Value > 4.0 Whole blood prothrombin time Ordered By: Alexandra Hagen on 06-30-2023 PT Coag (Bld) [Time] 24.6 s 11.7-14.9 [facility] CARECOORDon 2023 CARECOORD Patient Choice Patient Name: EZRA GONZALEZ Date of : 1935 [facility] 06-20-2023 [facility] Site of Care Admission Date: 06/16/2023 01:38 PM Patient Name: EZRA GONZALEZ Location: [address] Date of : 1935 ------- Placement Information ------- Referral Type:Home Health Care Services - New Referral ID:[id number] Provider [facility] Address 1:Felipe Franco Address 2: City:[place] Selection Factors:Patient/Famil y Choice State:[place] Normal [facility] SW, pt i s requesting [...] pt order lunch. Notified TONIO, RN and decision unit rn. . I SPOKE WITH DONOVAN, SENIOR FINANCIAL AT [facility]. THEY CAN TAKE PT BACK TODAY. THEY CAN PROVIDE TRANSPORTATION BACK TO FACILITY AROUND 3 PM. AWARE PT WILL NEED PT AT FACILITY, THEY USE [facility] [employer] [facility], DID LET LIAISON NOW. WENT TO [...] SECURE CHAT WITH CONNIE PEREZ REGARDING THIS. [facility] Laboratory - Chemistry and C hemistry - challengeon 06-20-2023 Glucose [Mass/Vol] 125 mg/dL High 70 - 100 mg/dL [facility] Laboratory - Coagulationon 0 06-20-2023 PT Coag (Bld) [Time] 11.3 s 9.0 - 12.0 s [facility] No Panel Informationon 06-19 Interpretation and review of laboratory results Abnormal [facility] Performed by: [facility], [address] [place] [address] CLIA ID: [id number] [facility] Radiology Study observation (narrative) Trina isabel PROTHROMBIN [...] Myocardial Infarction Performed By: #### L [id number] ####Cloth Beamer: ALEXANDRA BUSTAMANTE ([id number])[facility] ([facility])[address] [place] [address] PT Coag (PPP) [Time] 11.3 s Normal 9.0-12.0 [facility] Comment on above: Performed By: #### L [id number] ####Cloth Beamer: ALEXANDRA BUSTAMANTE ([id number])[facility] ([facility])[address] [place] [address] PT Coag (Bld) [Time]on 06-19 INR Coag (PPP) [Relative time] 1.1 {INR} 0.9 - 1.[address] [facility] Comment on above: Recommended Anticoag ulant [...] Infarction Interpretation and review of laboratory results [facility] Progress Noteon 06-20-2023 Progress Note Dc via CRISTINA cot to Josep MCARTHUR with all belongings [facility] Progress Note Called report to Maryanne at [facility] Progress Note [facility] Anticoagulatio n Management Service (RIA) Inpatient Warfarin Consult HPI: Ezra Gonzalez is a 87 y.o. female admitted on 06/16/2023 for Closed displaced fracture of medial condyle of right humerus, initial encounter [S42.012N] History reviewed. No pertinent past medical history. [...] patient can be classified as high risk ([id number] = 8). 2. Monitor for s/s of bleeding and drug interactions. Will adjust dose accordingly 3. RIA will manage while inpatient Dc Lombardi, JpD Candidate Toshia Sanches, JpD, BCPS RIA is available daily [phone] via [employer] Chat. If no response on [employer] Chat then please page [phone]. [facility] BASIC METABOLIC PANELon 05-30 Anion gap [Moles/Vol] 11 mmol/L Normal 3-13 [facility] Comment on above: Performed By: #### L AB15 ####Cloth Beamer: ALEXANDRA BUSTAMANTE ([id number])[facility] ([facility])[address] [place] [address] Calcium [Mass/Vol] 8.3 mg/dL Low 8.4-10.4 [facility] Comment on above: Performed By: #### L AB15 ####Cloth Beamer: ALEXANDRA BUSTAMANTE ([id number])[facility] [place] [address] Chloride [Moles/Vol] 102 mmol/L Normal 98-107 [facility] Comment on above: Performed By: #### L AB15 ####Cloth Beamer: ALEXANDRA BUSTAMANTE ([id number])[facility] [place] [address] CO2 [Moles/Vol] 21 mmol/L Low 22-30 [facility] Comment on above: Performed By: #### L AB15 ####Cloth Beamer: ALEXANDRA BUSTAMANTE ([id number])[facility] ([facility])[address] [place] [address] Creatinine [Mass/Vol] 0.84 mg/dL Normal 0.52-1.04 [facility] Comment on above: Performed By: #### L AB15 ####Cloth Beamer: ALEXANDRA BUSTAMANTE ([id number])[facility] ([facility])[address] [place] [address] [place] GLOMERULAR FILTRATION RATE ML/MIN/1.73 SQ M.PREDICTED 67.4 mL/min/1.73m*2 Normal >60.0 [facility] Comment on above: Result Comment: Calc ulation based on the Chronic Kidney Disease Epidemiology Collaboration (CKD-EPI) equation refit without adjustment for race Performed By: #### L AB15 ####Cloth Beamer: ALEXANDRA BUSTAMANTE ([id number])[facility] ([facility])[address] [place] [address] [place] Glucose [Mass/Vol] 263 mg/dL High 70-100 [facility] Comment on above: Performed By: #### L AB15 ####Cloth Beamer: ALEXANDRA [id number])[facility] ([facility] Potassium [Moles/Vol] 4.7 mmol/L Normal 3.5-5.1 [facility] Comment on above: Performed By: #### L AB15 ####Cloth Beamer: ALEXANDRA BUSTAMANTE ([id number])[facility] [place] [address] Sodium [Moles/Vol] 133 mmol/L Low 135-145 [facility] Comment on above: Performed By: #### L AB15 ####Cloth Beamer: ALEXANDRA BUSTAMANTE ([id number])[facility] [place] [address] Urea nitrogen [Mass/Vol] 27 mg/dL High 7-17 [facility] Comment on above: Performed By: #### L AB15 ####Cloth Beamer: ALEXANDRA BUSTAMANTE ([id number])[facility] [place] [address] Basic metabolic 1998 panelon 06-19-2023 Anion gap [Moles/Vol] 11 mmol/L 3 - 13 mmol/L [facility] Calcium [Mass/Vol] 8.3 mg/dL Low 8.4 - 10. 4 mg/dL [facility] Chloride [Moles/Vol] 102 mmol/L 98 - 10 7 mmol/L [facility] CO2 [Moles/Vol] 21 mmol/L Low 22 - 30 mmol/L [facility] Creatinine [Mass/Vol] 0.84 mg/dL 0.52 - 1.04 mg/dL [facility] GFR/1.73 sq M.predicted MDRD (S/P/Bld) [Vol rate/Area] 67.4 mL/min/{1.73_m2} - PINF [facility] Comment on above: Calculation based on the Chronic Kidney Disease Epidemiology Collaboration (CKD-EPI) equation refit without adjustment for race Glucose [Mass/Vol] 263 mg/dL High 70 - 100 mg/dL [facility] Interpretation and review of laboratory results Abnormal [facility] Potassium [Moles/Vol] 4.7 mmol/L 3.5 - 5.1 mmol/L [facility] Sodium [Moles/Vol] 133 mmol/L Low 135 - 145 mmol/L [facility] Urea nitrogen [Mass/Vol] 27 mg/dL High 7 - 17 mg/d L [facility] CARECOORDon 06-19-2023 CARECOORD DAY #1 S/P ORIF OF RIGHT ARM. WAITING FOR PT/OT EVALS FOR DC PLANNING. Normal [facility] CBC W Auto Differential pane l (Bld)Ordered By: Leona Thakur on 06-19-2023 Basophils (Bld) [#/Vol] 0.0 10*3/uL 0.0 - 0.2 10*3/uL [facility] Basophils/100 WBC (Bld) 0.2 % 0.0 - 2.0 % [facility] Eosinophils (Bld) [#/Vol] 0.0 10*3/uL 0. 0 - 0.5 10*3/uL [facility] Eosinophils/100 WBC (Bld) 0.0 % 0.0 - 6.0 % [facility] Erythrocyte distribution width (RBC) [Ratio] 13.6 % 11.5 - 15.0 % [facility] Hematocrit (Bld) [Volume fraction] 35.0 % 35.0 - 47.0 % [facility] Hemoglobin (Bld) [Mass/Vol] 11.4 g/dL Low 11.7 - 16.0 g/dL [facility] Immature granulocytes (Bld) [#/Vol] 0.1 10*3/uL High NINF - 0.1 10*3/uL [facility] Immature granulocytes/100 WBC (Bld) 0.6 % 0.0 - 2.0 % [facility] Interpretation and review of laboratory results Abnormal [facility] th Lymphocytes (Bld) [#/Vol] 0.8 10*3/uL Low 1. 0 - 4.3 10*3/uL [facility] Lymphocytes/100 WBC (Bld) 6.4 % Low 15 .0 - 45.0 % [facility] MCH (RBC) [Entitic mass] 28.6 pg 26. 0 - 34.[address] [facility] MCHC (RBC) [Mass/Vol] 32.6 % 30.5 - 36.0 % [facility] MCV (RBC) [Entitic vol] 87.9 fL 77.0 - 99.0 fL [facility] Monocytes (Bld) [#/Vol] 0.6 10*3/uL 0.0 - 0.9 10*3/uL [facility] Monocytes/100 WBC (Bld) 4.6 % Low 5.0 - 13.0 % [facility] Neutrophils (Bld) [#/Vol] 11.2 10*3/uL High 1. 8 - 7.5 10*3/uL [facility] Neutrophils/100 WBC (Bld) 88.2 % High 38 .0 - 82.0 % [facility] Nucleated RBC/100 WBC (Bld) [Ratio] 0.0 % [facility] Platelet mean volume (Bld) [Entitic vol] 10.2 fL 9.0 - 12.[address] [facility] Platelets (Bld) [#/Vol] 260 10*3/uL 140 - 440 10*3/uL [facility] RBC (Bld) [#/Vol] 3.98 10*6/uL 3.80 - 5.2 0 10*6/uL [facility] WBC (Bld) [#/Vol] 12.7 10*3/uL High 3.6 - 10.7 10*3/uL [facility] CBC WITH AUTO DIFFERENTIALon 06-19-2023 Basophils (Bld) [#/Vol] 0.0 10*3/uL Normal 0.0-0.2 [facility] Comment on above: Performed By: #### L [id number] ####Cloth Beamer: ALEXANDRA [id number])[address] Basophils/100 WBC (Bld) 0.2 % Normal 0.0-2.0 [facility] Comment on above: Performed By: #### L [id number] ####Cloth Beamer: ALEXANDRA [id number])[address] Eosinophils (Bld) [#/Vol] 0.0 10*3/uL Normal 0.0-0.5 [facility] Comment on above: Performed By: #### L [id number] ####Cloth Beamer: ALEXANDRA [id number])[facility])[address] [place] [address] Eosinophils/100 WBC (Bld) 0.0 % Normal 0.0-6.0 [facility] Comment on above: Performed By: #### L [id number] ####Cloth Beamer: ALEXANDRA BUSTAMANTE ([id number])[facility])[address] [place] [address] Erythrocyte distribution width (RBC) [Ratio] 13.6 % Normal 11.5-15.0 [facility] Comment on above: Performed By: #### L [id number] ####Cloth Beamer: ALEXANDRA BUSTAMANTE ([id number])[facility])[address] [place] [address] Hematocrit (Bld) [Volume fraction] 35.0 % Normal 35.0-47.0 [facility] Comment on above: Performed By: #### L [id number] ####Cloth Beamer: ALEXANDRA BUSTAMANTE ([id number])[facility])[address] [place] [address] Hemoglobin (Bld) [Mass/Vol] 11.4 g/dL Low 11.7-16.0 [facility] Comment on above: Performed By: #### L [id number] ####Cloth Beamer: ALEXANDRA BUSTAMANTE ([id number])[facility])[address] [place] [address] IMMATURE GRANS % 0.6 % Normal 0.0-2.0 [facility] Comment on above: Performed By: #### L [id number] ####Cloth Beamer: ALEXANDRA BUSTAMANTE ([id number])[facility])[address] [place] [address] IMMATURE GRANS ABSOLUTE 0.1 10*3/uL High <0.1 [facility] Comment on above: Performed By: #### L [id number] ####Cloth Beamer: ALEXANDRA BUSTAMANTE ([id number])[facility])[address] [place] [address] [place] Lymphocytes (Bld) [#/Vol] 0.8 10*3/uL Low 1.0-4.3 [facility] Comment on above: Performed By: #### L [id number] ####Cloth Beamer: ALEXANDRA BUSTAMANTE ([id number])[facility])[address] [place] [address] Lymphocytes/100 WBC (Bld) 6.4 % Low 15.0-45.0 [facility] Comment on above: Performed By: #### L [id number] ####Cloth Beamer: ALEXANDRA BUSTAMANTE ([id number])[facility])[address] [place] [address] MCH (RBC) [Entitic mass] 28.6 pg Normal 26.0-34.0 [facility] Comment on above: Performed By: #### L [id number] ####Cloth Beamer: ALEXANDRA BUSTAMANTE ([id number])[facility])[address] [place] [address] MCHC 32.6 % Normal 30.5-36.0 [facility] Comment on above: Performed By: #### L [id number] ####Cloth Beamer: ALEXANDRA BUSTAMANTE ([id number])[facility])[address] [place] [address] MCV (RBC) [Entitic vol] 87.9 fL Normal 77.0-99.0 [facility] Comment on above: Performed By: #### L [id number] ####Cloth Beamer: ALEXANDRA BUSTAMANTE ([id number])[facility])[address] [place] [address] Monocytes (Bld) [#/Vol] 0.6 10*3/uL Normal 0.0-0.9 [facility] Comment on above: Performed By: #### L [id number] ####Cloth Beamer: ALEXANDRA BUSTAMANTE ([id number])[facility])[address] [place] [address] Monocytes/100 WBC (Bld) 4.6 % Low 5.0-13.0 [facility] Comment on above: Performed By: #### L [id number] ####Cloth Beamer: ALEXANDRA BUSTAMANTE ([id number])[facility])[address] [place] [address] NEUTROPHILS ABSOLUTE 11.2 10*3/uL High 1.8-7.5 [facility] Comment on above: Performed By: #### L [id number] ####Cloth Beamer: ALEXANDRA BUSTAMANTE ([id number])[facility])[address] [place] [address] Neutrophils/100 WBC (Bld) 88.2 % High 38.0-82.0 [facility] Comment on above: Performed By: #### L [id number] ####Cloth Beamer: ALEXANDRA BUSTAMANTE ([id number])[facility])[address] [place] [address] NRBC 0.0 /100 WBCs Normal 0.0-2.0 [facility] Comment on above: Performed By: #### L [id number] ####Cloth Beamer: ALEXANDRA BUSTAMANTE ([id number])[facility] ([facility])[address] [place] [address] Platelet mean volume (Bld) [Entitic vol] 10.2 fL Normal 9.0-12.7 [facility] Comment on above: Performed By: #### L [id number] ####Cloth Beamer: ALEXANDRA BUSTAMANTE ([id number])[facility])[address] [place] [address] [place] Platelets (Bld) [#/Vol] 260 10*3/uL Normal 140-440 [facility] Comment on above: Performed By: #### L [id number] ####Cloth Beamer: ALEXANDRA BUSTAMANTE ([id number])[facility])[address] [place] [address] RBC (Bld) [#/Vol] 3.98 10*6/uL Normal 3.80-5.20 [facility] Comment on above: Performed By: #### L [id number] ####Cloth Beamer: ALEXANDRA BUSTAMANTE ([id number])[facility] ([facility])[address] [place] [address] WBC (Bld) [#/Vol] 12.7 10*3/uL High 3.6-10.7 [facility] Comment on above: Performed By: #### L [id number] ####Cloth Beamer: ALEXANDRA BUSTAMANTE ([id number])[facility] ([facility])[address] [place] [address] Laboratory - Chemistry and C hemistry - challengeon 06-19-2023 Glucose [Mass/Vol] 220 mg/dL High 70 - 100 mg/dL [facility] Glucose [Mass/Vol] 137 mg/dL High 70 - 100 mg/dL [facility] Glucose [Mass/Vol] 141 mg/dL High 70 - 100 mg/dL [facility] Glucose [Mass/Vol] 177 mg/dL High 70 - 100 mg/dL [facility] Laboratory - Coagulationon 0 06-19-2023 PT Coag (Bld) [Time] 11.3 s 9.0 - 12.0 s [facility] No Panel Informationon 06-18 Interpretation and review of laboratory results Abnormal [facility] th Performed by: [facility], [address] [place] [address] CLIA ID: [id number] [facility] Interpretation and review of laboratory results Abnormal [facility] th Performed by: [facility], [address] [place] [address] CLIA ID: [id number] [facility] Interpretation and review of laboratory results Abnormal [facility] th Performed by: [facility], [address] [place] [address] CLIA ID: [id number] [facility] Interpretation and review of laboratory results Abnormal [facility] th Performed by: [facility], [address] [place] [address] CLIA ID: [id number] [facility] Radiology Study observation (narrative) [facility] [...] Myocardial Infarction Performed By: #### L [id number] ####Cloth Beamer: ALEXANDRA BUSTAMANTE ([id number])[address] PT Coag (PPP) [Time] 11.3 s Normal 9.0-12.0 [facility] Comment on above: Performed By: #### L [id number] ####Cloth Beamer: ALEXANDRA BUSTAMANTE ([id number])[facility] ([facility])[address] [place] [address] PT Coag (Bld) [Time]on 06-18 INR Coag (PPP) [Relative time] 1.1 {INR} 0.9 - 1.[address] [facility] Comment on above: Recommended Anticoag ulant [...] Interpretation and review of laboratory results Normal [facility] Progress Noteon 06-19-2023 Progress Note [facility] Anticoagulatio n Management Service (RIA) Inpatient Warfarin Consult HPI: Ezra Gonzalez is a 87 y.o. female admitted on 06/16/2023 for Closed displaced fracture of medial condyle of right humerus, initial encounter [S42.905H] History reviewed. No pertinent past medical history. [...] patient can be classified as high risk ([id number] = 8). 2. Monitor for s/s of bleeding and drug interactions. Will adjust dose accordingly 3. RIA will manage while inpatient Dc Lombardi, JpD Candidate Jp BolanosD, [facility] RIA is available daily [phone] via [employer]. If no response on [employer] Chat then please page [phone]. Normal [facility] BASIC METABOLIC PANELon 03-2023 Anion gap [Moles/Vol] 10 mmol/L Normal 3-13 [facility] Comment on above: Performed By: #### L AB15 ####Cloth Beamer: ALEXANDRA BUSTAMANTE ([id number])[address] Calcium [Mass/Vol] 8.8 mg/dL Normal 8.4-10.4 [facility] Comment on above: Performed By: #### L AB15 ####Cloth Beamer: ALEXANDRA BUSTAMANTE ([id number])[facility] ([facility])[address] [place] [address] Chloride [Moles/Vol] 98 mmol/L Normal 98-107 [facility] Comment on above: Performed By: #### L AB15 ####Cloth Beamer: ALEXANDRA BUSTAMANTE ([id number])[facility] ([facility])[address] [place] [address] [place] CO2 [Moles/Vol] 25 mmol/L Normal 22-30 [facility] Comment on above: Performed By: #### L AB15 ####Cloth Beamer: ALEXANDRA BUSTAMANTE ([id number])[facility] ([facility])[address] [place] [address] Creatinine [Mass/Vol] 0.83 mg/dL Normal 0.52-1.04 [facility] Comment on above: Performed By: #### L AB15 ####Cloth Beamer: ALEXANDRA BUSTAMANTE ([id number])[facility] ([facility])[address] [place] [address] GLOMERULAR FILTRATION RATE ML/MIN/1.73 SQ M.PREDICTED 68.3 mL/min/1.73m*2 Normal >60.0 [facility] Comment on above: Result Comment: Calc ulation based on the Chronic Kidney Disease Epidemiology Collaboration (CKD-EPI) equation refit without adjustment for race Performed By: #### L AB15 ####Cloth Beamer: ALEXANDRA BUSTAMANTE ([id number])[facility] ([facility])[address] [place] [address] Glucose [Mass/Vol] 163 mg/dL Normal [facility] Comment on above: Performed By: #### L AB15 ####Cloth Beamer: ALEXANDRA BUSTAMANTE ([id number])[facility])[address] [place] [address] Order Comment: If no t done within the last 3 mos Performed By: #### L AB90 ####Cloth Beamer: ALEXANDRA BUSTAMANTE ([id number])[facility] ([facility])[address] [place] [address] [place] Potassium [Moles/Vol] 4.6 mmol/L Normal 3.5-5.1 [facility] Comment on above: Performed By: #### L AB15 ####Cloth Beamer: ALEXANDRA BUSTAMANTE ([id number])[facility])[address] [place] [address] Sodium [Moles/Vol] 133 mmol/L Low 135-145 [facility] Comment on above: Performed By: #### L AB15 ####Cloth Beamer: ALEXANDRA BUSTAMANTE ([id number])[facility] ([facility])[address] [place] [address] Urea nitrogen [Mass/Vol] 24 mg/dL High 7-[address] [facility] Comment on above: Performed By: #### L AB15 ####Cloth Beamer: ALEXANDRA BUSTAMANTE ([id number])[facility] ([facility])[address] [place] [address] Basic metabolic 1998 panelon 06-18-2023 Anion gap [Moles/Vol] 10 mmol/L 3 - 13 mmol/L [facility] Calcium [Mass/Vol] 8.8 mg/dL 8.4 - 10. 4 mg/dL [facility] Chloride [Moles/Vol] 98 mmol/L 98 - 10 7 mmol/L [facility] CO2 [Moles/Vol] 25 mmol/L 22 - 30 mmol/L [facility] Creatinine [Mass/Vol] 0.83 mg/dL 0.52 - 1.04 mg/dL [facility] GFR/1.73 sq M.predicted MDRD (S/P/Bld) [Vol rate/Area] 68.3 mL/min/{1.73_m2} - PINF [facility] Comment on above: Calculation based on the Chronic Kidney Disease Epidemiology Collaboration (CKD-EPI) equation refit without adjustment for race Glucose [Mass/Vol] 163 mg/dL High 70 - 100 mg/dL [facility] Interpretation and review of laboratory results Abnormal [facility] Potassium [Moles/Vol] 4.6 mmol/L 3.5 - 5.1 mmol/L [facility] Sodium [Moles/Vol] 133 mmol/L Low 135 - 145 mmol/L [facility] Urea nitrogen [Mass/Vol] 24 mg/dL High 7 - 17 mg/d L [facility] CARECOORDon 06-18-2023 CAR[facility]OORD Care Managment Initial Assessment Date: 06/18/2023 Patient Name: Ezra Gonzalez : 1935 Patient Information Source of Information: Patient Cognition/Language: WFL - Within Functional Limits Permission given to speak with patient telesales representative/caregi saira as indicated: No Confirmation of Payer with patient/family: Yes Payer Name: [facility] : No Confirmation of Primary Care [...] CONTINUE TO FOLLOW. Shikha Gray RN Normal [facility] CBC W Auto Differential pane l (Bld)Ordered By: Nir Meza on 06-18-2023 Basophils (Bld) [#/Vol] 0.1 10*3/uL 0.0 - 0.2 10*3/uL [facility] Basophils/100 WBC (Bld) 0.4 % 0.0 - 2.0 % [facility] Eosinophils (Bld) [#/Vol] 0.2 10*3/uL 0. 0 - 0.5 10*3/uL [facility] Eosinophils/100 WBC (Bld) 1.3 % 0.0 - 6.0 % [facility] Erythrocyte distribution width (RBC) [Ratio] 13.8 % 11.5 - 15.0 % [facility] Hematocrit (Bld) [Volume fraction] 44.1 % 35.0 - 47.0 % [facility] Hemoglobin (Bld) [Mass/Vol] 13.9 g/dL 11.7 - 16.0 g/dL [facility] Immature granulocytes (Bld) [#/Vol] 0.1 10*3/uL High NINF - 0.1 10*3/uL [facility] Immature granulocytes/100 WBC (Bld) 0.4 % 0.0 - 2.0 % [facility] Interpretation and review of laboratory results Abnormal [facility] th Lymphocytes (Bld) [#/Vol] 2.0 10*3/uL 1. 0 - 4.3 10*3/uL [facility] Lymphocytes/100 WBC (Bld) 13.1 % Low 15 .0 - 45.0 % [facility] MCH (RBC) [Entitic mass] 28.0 pg 26. 0 - 34.[address] [facility] MCHC (RBC) [Mass/Vol] 31.5 % 30.5 - 36.0 % [facility] MCV (RBC) [Entitic vol] 88.9 fL 77.0 - 99.[address] [facility] Monocytes (Bld) [#/Vol] 1.4 10*3/uL High 0.0 - 0.9 10*3/uL [facility] Monocytes/100 WBC (Bld) 9.0 % 5.0 - 13.0 % [facility] Neutrophils (Bld) [#/Vol] 11.8 10*3/uL High 1. 8 - 7.5 10*3/uL [facility] Neutrophils/100 WBC (Bld) 75.8 % 38 .0 - 82.0 % [facility] Nucleated RBC/100 WBC (Bld) [Ratio] 0.0 % [facility] Platelet mean volume (Bld) [Entitic vol] 10.1 fL 9.0 - 12.[address] [facility] Platelets (Bld) [#/Vol] 375 10*3/uL 140 - 440 10*3/uL [facility] RBC (Bld) [#/Vol] 4.96 10*6/uL 3.80 - 5.2 0 10*6/uL [facility] WBC (Bld) [#/Vol] 15.5 10*3/uL High 3.6 - 10.7 10*3/uL [facility] CBC WITH AUTO DIFFERENTIALon 06-18-2023 Basophils (Bld) [#/Vol] 0.1 10*3/uL Normal 0.0-0.2 [facility] Comment on above: Performed By: #### L [id number] ####Cloth Beamer: ALEXANDRA BUSTAMANTE ([id number])[facility] ([facility])[address] [place] [address] Basophils/100 WBC (Bld) 0.4 % Normal 0.0-2.0 [facility] Comment on above: Performed By: #### L [id number] ####Cloth Beamer: ALEXANDRA BUSTAMANTE ([id number])[facility])[address] [place] [address] Eosinophils (Bld) [#/Vol] 0.2 10*3/uL Normal 0.0-0.5 [facility] Comment on above: Performed By: #### L [id number] ####Cloth Beamer: ALEXANDRA BUSTAMANTE ([id number])[facility] ([facility])[address] [place] [address] Eosinophils/100 WBC (Bld) 1.3 % Normal 0.0-6.0 [facility] Comment on above: Performed By: #### L [id number] ####Cloth Beamer: ALEXANDRA BUSTAMANTE ([id number])[facility])[address] [place] [address] Erythrocyte distribution width (RBC) [Ratio] 13.8 % Normal 11.5-15.0 [facility] Comment on above: Performed By: #### L [id number] ####Cloth Beamer: ALEXANDRA BUSTAMANTE ([id number])[facility])[address] [place] [address] Hematocrit (Bld) [Volume fraction] 44.1 % Normal 35.0-47.0 [facility] Comment on above: Performed By: #### L [id number] ####Cloth Beamer: ALEXANDRA BUSTAMANTE ([id number])[facility])[address] [place] [address] Hemoglobin (Bld) [Mass/Vol] 13.9 g/dL Normal 11.7-16.0 [facility] Comment on above: Performed By: #### L [id number] ####Cloth Beamer: ALEXANDRA BUSTAMANTE ([id number])[facility])[address] [place] [address] IMMATURE GRANS % 0.4 % Normal 0.0-2.0 [facility] Comment on above: Performed By: #### L [id number] ####Cloth Beamer: ALEXANDRA BUSTAMANTE ([id number])[facility])[address] [place] [address] IMMATURE GRANS ABSOLUTE 0.1 10*3/uL High <0.1 [facility] Comment on above: Performed By: #### L [id number] ####Cloth Beamer: ALEXANDRA BUSTAMANTE ([id number])[facility])[address] [place] [address] Lymphocytes (Bld) [#/Vol] 2.0 10*3/uL Normal 1.0-4.3 [facility] Comment on above: Performed By: #### L [id number] ####Cloth Beamer: ALEXANDRA BUSTAMANTE ([id number])[facility])[address] [place] [address] Lymphocytes/100 WBC (Bld) 13.1 % Low 15.0-45.0 [facility] Comment on above: Performed By: #### L [id number] ####Cloth Beamer: ALEXANDRA BUSTAMANTE ([id number])[facility])[address] [place] [address] MCH (RBC) [Entitic mass] 28.0 pg Normal 26.0-34.0 [facility] Comment on above: Performed By: #### L [id number] ####Cloth Beamer: ALEXANDRA BUSTAMANTE ([id number])[facility])[address] [place] [address] MCHC 31.5 % Normal 30.5-36.0 [facility] Comment on above: Performed By: #### L [id number] ####Cloth Beamer: ALEXANDRA BUSTAMANTE ([id number])[facility] ([facility])[address] [place] [address] MCV (RBC) [Entitic vol] 88.9 fL Normal 77.0-99.0 [facility] Comment on above: Performed By: #### L [id number] ####Cloth Beamer: ALEXANDRA BUSTAMANTE ([id number])[facility] ([facility])[address] [place] [address] Monocytes (Bld) [#/Vol] 1.4 10*3/uL High 0.0-0.9 [facility] Comment on above: Performed By: #### L [id number] ####Cloth Beamer: ALEXANDRA BUSTAMANTE ([id number])[facility] ([facility])[address] [place] [address] Monocytes/100 WBC (Bld) 9.0 % Normal 5.0-13.0 [facility] Comment on above: Performed By: #### L [id number] ####Cloth Beamer: ALEXANDRA BUSTAMANTE ([id number])[facility] ([facility])[address] [place] [address] NEUTROPHILS ABSOLUTE 11.8 10*3/uL High 1.8-7.5 [facility] Comment on above: Performed By: #### L [id number] ####Cloth Beamer: ALEXANDRA BUSTAMANTE ([id number])[facility] ([facility])[address] [place] [address] Neutrophils/100 WBC (Bld) 75.8 % Normal 38.0-82.0 [facility] Comment on above: Performed By: #### L [id number] ####Cloth Beamer: ALEXANDRA BUSTAMANTE ([id number])[facility])[address] [place] [address] NRBC 0.0 /100 WBCs Normal 0.0-2.0 [facility] Comment on above: Performed By: #### L [id number] ####Cloth Beamer: ALEXANDRA BUSTAMANTE ([id number])[facility])[address] [place] [address] Platelet mean volume (Bld) [Entitic vol] 10.1 fL Normal 9.0-12.7 [facility] Comment on above: Performed By: #### L [id number] ####Cloth Beamer: ALEXANDRA BUSTAMANTE ([id number])[facility] ([facility])[address] [place] [address] Platelets (Bld) [#/Vol] 375 10*3/uL Normal 140-440 [facility] Comment on above: Performed By: #### L [id number] ####Cloth Beamer: ALEXANDRA BUSTAMANTE ([id number])[facility] ([facility])[address] [place] [address] RBC (Bld) [#/Vol] 4.96 10*6/uL Normal 3.80-5.20 [facility] Comment on above: Performed By: #### L [id number] ####Cloth Beamer: ALEXANDRA BUSTAMANTE ([id number])[facility])[address] [place] [address] WBC (Bld) [#/Vol] 15.5 10*3/uL High 3.6-10.7 [facility] Comment on above: Performed By: #### L [id number] ####Cloth Beamer: ALEXANDRA BUSTAMANTE ([id number])[facility])[address] [place] [address] HEMOGLOBIN A1Con 06-18-2023 HbA1c (Bld) [Mass fraction] [...] have dyshemoglobinemia. Performed By: #### L [id number] ####Cloth Beamer: ALEXANDRA BUSTAMANTE ([id number])[facility] ([facility])[address] [place] [address] IDNon 06-18-2023 IDN The patient is Moderately Stable - Low risk of patient condition declining or worsening The patient's goals for the shift include rest and pain control The clinical goals for the shift include rest and pain control Normal [facility] Laboratory - Chemistry and C hemistry - challengeon 06-18-2023 Glucose [Mass/Vol] 189 mg/dL High 70 - 100 mg/dL [facility] Procalcitonin [Mass/Vol] 0.06 ng/mL 0.0 0 - 0.09 ng/mL [facility] Glucose [Mass/Vol] 121 mg/dL High 70 - 100 mg/dL [facility] Average glucose Estimated from glycated hemoglobin (Bld) [Mass/Vol] 163 mg/dL [facility] Laboratory - Hematology and Cell countson 06-18-2023 HbA1c (Bld) [Mass fraction] 7.3 % High NINF - 5.7 % [facility] Comment on above: Normal less than 5.7 % Prediabetes 5.7% to 6.4% Diabetes 6.5% or higher --HgbA1C levels may not be accurate in patients who have renal disease, received recent blood transfusions, are anemic, or who have dyshemoglobinemia. No Panel Informationon 06-17 Interpretation and review of laboratory results Abnormal [facility] Performed by: [facility], [address] [place] [address] CLIA ID: [id number] [facility] There is no interpretation needed for this exam. IMAGING Interpretation and review of laboratory results Abnormal [facility] Performed by: [facility], [address] [place] [id number] CLIA ID: [id number] [facility] Interpretation and review of laboratory results Abnormal [facility] Radiology Study observation (narrative) Trina isabel Radiology Study observation (narrative) Trina Oconnell alth Nursing Noteon 06-18-2023 Nursing Note Pt states no need to contact family. RN on floor states she will call pt's son,. Normal [facility] Nursing Note Patients wallet and watch locked up with security. OR notified patient states she has latex allergy Patients purse and glasses taken to pacu [facility] Op Noteon 06-18-2023 Op Note [facility] [address] [facility] [place] [facility] [address] Dept: [phone] Loc: [phone] Operative Report Patient Name: Ezra Gonzalez Date of : 1935 Date of Surgery: 06/18/23 Pre-operative diagnosis: Right intra-articular distal humerus fracture Post-operative diagnosis: Same Procedure(s): Open reduction internal fixation of right intra-articular distal humerus fracture Surgeon: Benitez Givens M.D. Linseed Cake Trimmer(s): Lexa Aparicio M.D. Anesthesia: General and Regional [...] as well as medical complications such as WI, stroke, PE, DVT, and even . Pt [...] Lexa Aparicio MD at 06/18/23, 7:20 PM [facility] Op Note Date: 06/16/2023 - 06/18/2023 Location: [facility] OR Name: Ezra Gonzalez, : 1935, Diagnosis Pre-op Diagnosis * Closed displaced fracture of medial condyle of right humerus, initial encounter [S42.343M] Post-op Diagnosis * Closed displaced fracture of medial condyle of right humerus, initial encounter [S42.469H] Procedures OPEN REDUCTION INTERNAL FIXATION RIGHT DISTAL HUMERUS 73698 - MA [employer]X HUMERAL SHFT FX W/PLATE/SCREWS W/WOCERCLAGE Surgeons * Benitez Givesn - Primary Procedure Summary Anesthesia: * No anesthesia type entered * ASA: III Estimated Blood Loss: Minimal Drains: * None in log * Staff: Anesthesia Resident: Vivian Herrera RN Scrub Person: Linda Alvarez [...] in 2 weeks -Ortho to follow. Normal [employer] Cover [facility] PROCALCITONIN TESTon 06-17- 024 PROCALCITONIN 0.06 ng/mL Normal 0.00-0.09 [facility] Comment on above: Result Comment: ORDE R COMMENTS: PCT <0.50 = Low risk of severe sepsis and/or septic shock. PCT >2.00 = High risk of severe sepsis and/or septic shock. Performed By: #### L [id number] ####Cloth Beamer: ALEXANDRA BUSTAMANTE ([id number])[facility] ([facility])[address] [place] [address] Procalcitonin [Mass/Vol]on 0 06-18-2023 Interpretation and review of laboratory results Normal [facility] PCT <0.50 = Low risk of severe sepsis and/or septic shock. PCT >2.00 = High risk of severe sepsis and/or septic shock. [facility] Progress Noteon 06-18-2023 Progress Note Nutrition rescreen completed. Chart reviewed. Patient to be monitored and followed by the diet sterilisation technician. Ele Butcher, DT [facility] Progress Note OCCUPATIONAL THERAPY [facility] Name/MRN: Ezra Gonzalez ([id number]) Date: 06/18/2023 OT eval and treat order received. Patient chart reviewed. Per Ortho note, Plan for ORIF od R distal humerus. Will hold evaluation till after surgery. Louisa Cespedes, OT Normal [facility] Progress Note PHYSICAL THERAPY [facility] Name/MRN: Ezra Gonzalez ([id number]) Date: 06/18/2023 PT orders received and chart reviewed. Per ortho note, Plan for ORIF R distal humerus. Will hold and attempt following surgery. Maryanne Neumann, PT Normal [facility] ECG 12-LEADon 06-17-2023 ECG 12-LEAD IMPRESSION: Atrial fibrillation Probable left ventricular hypertrophy No previous ECG for comparison Electronically Signed On 06-17-2023 06:39:12 EDT by Thong Francois [facility] ED Nursing Noteon 06-17-2023 ED Nursing Note Patient resting in bed at this time, equal unlabored respirations noted and no acute distress, call león within reach Di Reyna RN 06/17/23 1153 [facility] ED Nursing Note Pt O2 desaturating t o mid 80s after receiving dilaudid IV. Pt placed on 2L NC and immediately back up to 95%. notified Alia Foster RN 06/17/23 1031 [facility] ED Nursing Note Pt upset with [...] line. Juanjo Pringle RN 06/16/23 2209 Normal [facility] Laboratory - Chemistry and C hemistry - challengeon 06-17-2023 Glucose [Mass/Vol] 137 mg/dL High 70 - 100 mg/dL [facility] Laboratory - Coagulationon 0 06-17-2023 PT Coag (Bld) [Time] 14.5 s High 9.0 - 12.0 s [facility] No Panel Informationon 06-16 Interpretation and review of laboratory results Abnormal [facility] th Performed by: [facility], [address] [place] [address] CLIA ID: [id number] [facility] Atrial fibrillation Probable left ventricular hypertrophy No previous ECG for comparison Electronically Signed On 06-17-2023 06:39:12 EDT by Thong Arvizu D O - 06/17/2023 IMPRESSION: Atrial fibrillation Probable left ventricular hypertrophy No previous ECG for comparison Electronically Signed On 06-17-2023 06:39:12 EDT by Thong Francois [facility] Radiology Study observation (narrative) [facility] No Panel InformationOrdered By: Thong Francois on 06-17-2023 P [place] 0 degrees [facility] [employer] Work Phone: MA Interval 0 ms [facility] [employer] Work Phone: QRS [place] -24 degrees [facility] [place] Work Phone: QRSD Interval 103 ms [facility] h Work Phone: QT Interval 382 ms [facility] [employer] Work Phone: QTC Interval 442 ms [facility] [place] Work Phone: T Wave [place] 31 degrees [facility] [place] Work Phone: [facility] [place] Work Phone: Nursing Noteon 06-17-2023 Nursing Note [...] Infarction Performed By: #### L [id number] #### Cloth Beamer: ALEXANDRA BUSTAMANTE ([id number]) [facility] ([facility]) [address] [place] [address] PT Coag (PPP) [Time] 14.5 s High 9.0-12.0 [facility] Comment on above: Performed By: #### L [id number] #### Cloth Beamer: ALEXANDRA BUSTAMANTE ([id number]) [facility] ([facility]) [address] [place] [address] PT Coag (Bld) [Time]on 06-16 INR Coag (PPP) [Relative time] 1.4 {INR} High 0.9 - 1.[address] [facility] Comment on above: Recommended Anticoag ulant [...] Interpretation and review of laboratory results Abnormal [facility] Progress Noteon 06-17-2023 Progress Note Due to OR availability, case cancelled for today. Moved to tomorrow, 06/17. Ok for diet today. NPO @AR. Keep splint C/D/I. Evette Viera MD Orthopaedic Surgery, PGY-5 [phone] Normal [facility] Cover [facility] Vital signsOrdered By: Neeta Francois on 06-17-2023 Heart rate 80 /min bpm [employer] Work Phone: XR Chest Single viewon 06-16 No acute cardiopulmonary process identified. Other chronic findings as discussed. 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 [facility] Houston Chau MD - 06/17/2023 Patient Name: [...] Electronically Signed Date/Time: 06/17/2023 12:44 AM EDT [facility] [place] Radiology Study observation (narrative) [facility] alth XR Chest Single viewOrdered By: Houston Chau on 06-17-2023 [facility] [place] Work Phone: Absolute lymphocyte countOrd ered By: Lali Pimentel on 06-16-2023 Lymphocytes Auto (Unsp spec) [#/Vol] 3.86 10*3/uL 0.83-4.51 [facility] Automated lymphocyte count a s percentage of total leukocytesOrdered By: Lali Pimentel on 06-16-2023 Lymphocytes/100 WBC Auto (Unsp spec) 23.0 % 19-41 [facility] BASIC METABOLIC PANELon 05-29 Anion gap [Moles/Vol] 7 mmol/L Normal 3-13 [facility] Comment on above: Performed By: #### L [id number] ####Cloth Beamer: ALEXANDRA BUSTAMANTE ([id number])[facility] ([facility])[address] [place] [address] Calcium [Mass/Vol] 8.6 mg/dL Normal 8.4-10.4 [facility] Comment on above: Performed By: #### L AB15 ####Cloth Beamer: ALEXANDRA BUSTAMANTE ([id number])[facility] ([facility])[address] [place] [address] [place] Chloride [Moles/Vol] 99 mmol/L Normal 98-107 [facility] Comment on above: Performed By: #### L AB15 ####Cloth Beamer: ALEXANDRA BUSTAMANTE ([id number])[facility] ([facility])[address] [place] [address] [place] CO2 [Moles/Vol] 29 mmol/L Normal 22-30 [facility] Comment on above: Performed By: #### L AB15 ####Cloth Beamer: ALEXANDRA BUSTAMANTE ([id number])[facility] ([facility])[address] [place] [address] Creatinine [Mass/Vol] 0.79 mg/dL Normal 0.52-1.04 [facility] Comment on above: Performed By: #### L AB15 ####Cloth Beamer: ALEXANDRA BUSTAMANTE ([id number])[facility] ([facility])[address] [place] [address] [place] GLOMERULAR FILTRATION RATE ML/MIN/1.73 SQ M.PREDICTED 72.5 mL/min/1.73m*2 Normal >60.0 [facility] Comment on above: Result Comment: Calc ulation based on the Chronic Kidney Disease Epidemiology Collaboration (CKD-EPI) equation refit without adjustment for race Performed By: #### L AB15 ####Cloth Beamer: ALEXANDRA BUSTAMANTE ([id number])[facility] ([facility])[address] [place] [address] [place] Glucose [Mass/Vol] 186 mg/dL High 70-100 [facility] Comment on above: Performed By: #### L AB15 ####Cloth Beamer: ALEXANDRA BUSTAMANTE ([id number])[facility] ([facility])[address] [place] [address] [place] Potassium [Moles/Vol] 4.5 mmol/L Normal 3.5-5.1 [facility] Comment on above: Performed By: #### L AB15 ####Cloth Beamer: ALEXANDRA BUSTAMANTE ([id number])[facility] ([facility])[address] [place] [address] [place] Sodium [Moles/Vol] 136 mmol/L Normal 135-145 [facility] Comment on above: Performed By: #### L AB15 ####Cloth Beamer: ALEXANDRA BUSTAMANTE ([id number])[facility] ([facility])[address] [place] [address] [place] Urea nitrogen [Mass/Vol] 26 mg/dL High 7-17 [facility] Comment on above: Performed By: #### L AB15 ####Cloth Beamer: ALEXANDRA BUSTAMANTE ([id number])[facility] ([facility])[address] [place] [address] BLOOD TYPE AND SCREEN GELon 06-16-2023 ABO GROUPING A Normal [facility] Comment on above: Performed By: #### L [id number] ####Cloth Beamer: ALEXANDRA BUSTAMANTE ([id number])[facility] ([facility])[address] [place] [address] RH TYPE IN BLOOD Positive Normal [facility] Comment on above: Performed By: #### L [id number] ####Cloth Beamer: ALEXANDRA BUSTAMANTE ([id number])[facility] ([facility])[address] [place] [address] Basic metabolic 1998 panelon 06-16-2023 Anion gap [Moles/Vol] 7 mmol/L 3 - 13 mmol/L [facility] Calcium [Mass/Vol] 8.6 mg/dL 8.4 - 10. 4 mg/dL [facility] Chloride [Moles/Vol] 99 mmol/L 98 - 10 7 mmol/L [facility] CO2 [Moles/Vol] 29 mmol/L 22 - 30 mmol/L [facility] Creatinine [Mass/Vol] 0.79 mg/dL 0.52 - 1.04 mg/dL [facility] GFR/1.73 sq M.predicted MDRD (S/P/Bld) [Vol rate/Area] 72.5 mL/min/{1.73_m2} - PINF [facility] Comment on above: Calculation based on the Chronic Kidney Disease Epidemiology Collaboration (CKD-EPI) equation refit without adjustment for race Glucose [Mass/Vol] 186 mg/dL High 70 - 100 mg/dL [facility] Interpretation and review of laboratory results Abnormal [facility] Potassium [Moles/Vol] 4.5 mmol/L 3.5 - 5.1 mmol/L [facility] Sodium [Moles/Vol] 136 mmol/L 135 - 145 mmol/L [facility] Urea nitrogen [Mass/Vol] 26 mg/dL High 7 - 17 mg/d L [facility] Basophil percentageOrdered B y: Lali Pimentel on 06-16-2023 Basophils/100 WBC (Bld) 0.4 % 0-1 W [facility] Chloride [Moles/Vol] 104 mmol/L 98-107 [facility] Eosinophils/100 WBC (Bld) 1.3 % 0-5 [facility] Glucose [Mass/Vol] 191 mg/dL 74-106 [facility] Comment on above: Fasting Glucose resu lt greater than or equal to 126 mg/dL suggests DIABETES MELLITUS per A.D.A. criteria. Hemoglobin (Bld) [Mass/Vol] 13.6 g/dL 12.0-15.0 [facility] Monocytes/100 WBC (Bld) 7.0 % 0-10 W [facility] Neutrophils (Bld) [#/Vol] 11.4 10*3/uL 2.0-7.7 [facility] Neutrophils/100 WBC (Bld) 67.8 % 47-70 [facility] Potassium [Moles/Vol] 3.4 mmol/L 3.5-5.1 [facility] Sodium [Moles/Vol] 140 mmol/L 136-145 [facility] WBC (Bld) [#/Vol] 16.8 10*3/uL 4.4-11.0 [facility] Blood type and Crossmatch nadia ro (Bld)on 06-16-2023 Blood group antibody screen GEL Ql Negative [facility] CBC W Auto Differential pane l (Bld)on 06-16-2023 Basophils (Bld) [#/Vol] 0.0 10*3/uL 0.0 - 0.2 10*3/uL [facility] Basophils/100 WBC (Bld) 0.2 % 0.0 - 2.0 % [facility] Eosinophils (Bld) [#/Vol] 0.0 10*3/uL 0. 0 - 0.5 10*3/uL [facility] Eosinophils/100 WBC (Bld) 0.0 % 0.0 - 6.0 % [facility] Erythrocyte distribution width (RBC) [Ratio] 13.6 % 11.5 - 15.0 % [facility] Hematocrit (Bld) [Volume fraction] 38.9 % 35.0 - 47.0 % [facility] Hemoglobin (Bld) [Mass/Vol] 12.8 g/dL 11.7 - 16.0 g/dL [facility] Immature granulocytes (Bld) [#/Vol] 0.1 10*3/uL High NINF - 0.1 10*3/uL [facility] Immature granulocytes/100 WBC (Bld) 0.6 % 0.0 - 2.0 % [facility] Interpretation and review of laboratory results Abnormal [facility] th Lymphocytes (Bld) [#/Vol] 1.1 10*3/uL 1. 0 - 4.3 10*3/uL [facility] Lymphocytes/100 WBC (Bld) 6.5 % Low 15 .0 - 45.0 % [facility] MCH (RBC) [Entitic mass] 29.1 pg 26. 0 - 34.[address] [facility] MCHC (RBC) [Mass/Vol] 32.9 % 30.5 - 36.0 % [facility] MCV (RBC) [Entitic vol] 88.4 fL 77.0 - 99.[address] [facility] Monocytes (Bld) [#/Vol] 0.7 10*3/uL 0.0 - 0.9 10*3/uL [facility] Monocytes/100 WBC (Bld) 4.4 % Low 5.0 - 13.0 % [facility] Neutrophils (Bld) [#/Vol] 14.3 10*3/uL High 1. 8 - 7.5 10*3/uL [facility] [facility] Neutrophils/100 WBC (Bld) 88.3 % High 38 .0 - 82.0 % [facility] Nucleated RBC/100 WBC (Bld) [Ratio] 0.0 % [facility] Platelet mean volume (Bld) [Entitic vol] 9.9 fL 9.0 - 12.[address] [facility] Platelets (Bld) [#/Vol] 357 10*3/uL 140 - 440 10*3/uL [facility] RBC (Bld) [#/Vol] 4.40 10*6/uL 3.80 - 5.2 0 10*6/uL [facility] WBC (Bld) [#/Vol] 16.2 10*3/uL High 3.6 - 10.7 10*3/uL [facility] CBC WITH AUTO DIFFERENTIALon 06-16-2023 Basophils (Bld) [#/Vol] 0.0 10*3/uL Normal 0.0-0.2 [facility] Comment on above: Performed By: #### L [id number] ####Cloth Beamer: ALEXANDRA BUSTAMANTE ([id number])[facility])[address] [place] [address] Basophils/100 WBC (Bld) 0.2 % Normal 0.0-2.0 [facility] Comment on above: Performed By: #### L [id number] ####Cloth Beamer: ALEXANDRA BUSTAMANTE ([id number])[facility])[address] [place] [address] Eosinophils (Bld) [#/Vol] 0.0 10*3/uL Normal 0.0-0.5 [facility] Comment on above: Performed By: #### L [id number] ####Cloth Beamer: ALEXANDRA BUSTAMANTE ([id number])[facility])[address] [place] [address] Eosinophils/100 WBC (Bld) 0.0 % Normal 0.0-6.0 [facility] Comment on above: Performed By: #### L [id number] ####Cloth Beamer: ALEXANDRA BUSTAMANTE ([id number])[facility])[address] [place] [address] Erythrocyte distribution width (RBC) [Ratio] 13.6 % Normal 11.5-15.0 [facility] Comment on above: Performed By: #### L [id number] ####Cloth Beamer: ALEXANDRA BUSTAMANTE ([id number])[facility])[address] [place] [address] Hematocrit (Bld) [Volume fraction] 38.9 % Normal 35.0-47.0 [facility] Comment on above: Performed By: #### L [id number] ####Cloth Beamer: ALEXANDRA BUSTAMANTE ([id number])[facility])[address] [place] [address] Hemoglobin (Bld) [Mass/Vol] 12.8 g/dL Normal 11.7-16.0 [facility] Comment on above: Performed By: #### L [id number] ####Cloth Beamer: ALEXANDRA BUSTAMANTE ([id number])[facility])[address] [place] [address] IMMATURE GRANS % 0.6 % Normal 0.0-2.0 [facility] Comment on above: Performed By: #### L [id number] ####Cloth Beamer: ALEXANDRA BUSTAMANTE ([id number])[facility])[address] [place] [address] IMMATURE GRANS ABSOLUTE 0.1 10*3/uL High <0.[address] [facility] Comment on above: Performed By: #### L [id number] ####Cloth Beamer: ALEXANDRA BUSTAMANTE ([id number])[address] Lymphocytes (Bld) [#/Vol] 1.1 10*3/uL Normal 1.0-4.3 [facility] Comment on above: Performed By: #### L [id number] ####Cloth Beamer: ALEXANDRA BUSTAMANTE ([id number])[facility])[address] [place] [address] Lymphocytes/100 WBC (Bld) 6.5 % Low 15.0-45.0 [facility] Comment on above: Performed By: #### L [id number] ####Cloth Beamer: ALEXANDRA BUSTAMANTE ([id number])[facility])[address] [place] [address] MCH (RBC) [Entitic mass] 29.1 pg Normal 26.0-34.0 [facility] Comment on above: Performed By: #### L [id number] ####Cloth Beamer: ALEXANDRA BUSTAMANTE ([id number])[address] MCHC 32.9 % Normal 30.5-36.[address] [facility] Comment on above: Performed By: #### L [id number] ####Cloth Beamer: ALEXANDRA BUSTAMANTE ([id number])[facility])[address] [place] [address] MCV (RBC) [Entitic vol] 88.4 fL Normal 77.0-99.0 [facility] Comment on above: Performed By: #### L [id number] ####Cloth Beamer: ALEXANDRA BUSTAMANTE ([id number])[facility])[address] [place] [address] Monocytes (Bld) [#/Vol] 0.7 10*3/uL Normal 0.0-0.9 [facility] Comment on above: Performed By: #### L [id number] ####Cloth Beamer: ALEXANDRA BUSTAMANTE ([id number])[facility])[address] [place] [address] Monocytes/100 WBC (Bld) 4.4 % Low 5.0-13.0 [facility] Comment on above: Performed By: #### L [id number] ####Cloth Beamer: ALEXANDRA BUSTAMANTE ([id number])[facility] ([facility])[address] [place] [address] NEUTROPHILS ABSOLUTE 14.3 10*3/uL High 1.8-7.5 [facility] Comment on above: Performed By: #### L [id number] ####Cloth Beamer: ALEXANDRA BUSTAMANTE ([id number])[facility] ([facility])[address] [place] [address] Neutrophils/100 WBC (Bld) 88.3 % High 38.0-82.0 [facility] Comment on above: Performed By: #### L [id number] ####Cloth Beamer: ALEXANDRA BUSTAMANTE ([id number])[facility] ([facility])[address] [place] [address] [place] NRBC 0.0 /100 WBCs Normal 0.0-2.0 [facility] Comment on above: Performed By: #### L [id number] ####Cloth Beamer: ALEXANDRA BUSTAMANTE ([id number])[facility] ([facility])[address] [place] [address] Platelet mean volume (Bld) [Entitic vol] 9.9 fL Normal 9.0-12.7 [facility] Comment on above: Performed By: #### L [id number] ####Cloth Beamer: ALEXANDRA BUSTAMANTE ([id number])[facility] ([facility])[address] [place] [address] Platelets (Bld) [#/Vol] 357 10*3/uL Normal 140-440 [facility] Comment on above: Performed By: #### L [id number] ####Cloth Beamer: ALEXANDRA BUSTAMANTE ([id number])[facility] ([facility])[address] [place] [address] RBC (Bld) [#/Vol] 4.40 10*6/uL Normal 3.80-5.20 [facility] Comment on above: Performed By: #### L [id number] ####Cloth Beamer: ALEXANDRA BUSTAMANTE ([id number])[facility] ([facility])[address] [place] [address] WBC (Bld) [#/Vol] 16.2 10*3/uL High 3.6-10.7 [facility] Comment on above: Performed By: #### L [id number] ####Cloth Beamer: ALEXANDRA BUSTAMANTE ([id number])[facility])[address] [place] [address] CT ELBOW RIGHT WO IV CONTRAS Ton 06-16-2023 CT ELBOW RIGHT WO IV CONTRAST [facility] Name[facility] 1935 [id number] Exam Date/Time: 06/16/2023 18:01 Procedure: CT ELBOW [...] Injury (Pt arrives via [facility] with complaints of right elbow fracture. Patient [...] Electronically Signed Date/Time: 06/16/2023 6:13 PM T [facility] Patient Name: ERZA [facility]ONZALEZ : 1935 [id number] Exam Date/Time: 06/16/2023 18:01 Procedure: CT ELBOW [...] process fracture. Joint effusion. Decreased osseous mineralization. [facility] Pastor Francisco MD - 06/16/2023 [...] Electronically Signed Date/Time: 06/16/2023 6:13 PM EDT [facility] Radiology Study observation (narrative) [facility] chalo Consulton 06-16-2023 Consult Ortho Consult Patient: Ezra Gonzalez Date of : 1935 Acct: [id number] PCP: No primary care provider on file. Date of Admission: 06/16/2023 Date of Service: Pt seen/examined on 06/16/2023 Chief Complaint: right distal humerus fracture History Of Present Illness: This is a 87 y.o. right hand dominant female who presents with a right distal humerus fracture after a fall at home. Patient originally presented to [facility] where she was splinted and transferred to [facility] ED for ortho eval. Patient denies numbness, tingling, or weakness. Denies pain elsewhere and denies head trauma or LOC. 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 Patient has prior ortho surgery history of bilateral TKAs and right shoulder surgery, left carpal tunnel release, all at [facility]. Denies alcohol, tobacco, drug use. Patient [...] (RBC) [Entitic vol] 90.3 fL 81-99 [facility] ED Provider Noteon ED Provider Note Emergency Department Encounter [facility] EMERGENCY DEPT Patient: Ezra Gonzalez : [...] [employer] Sae Conde MD 06/16/23 1626 [facility] ED Provider Note EMERGENCY DEPARTMENT ENCOUNTER Pt Name: Ezra Gonzalez Birthdate 1935 Date of evaluation: 06/16/2023 ED Provider: NADIA Ruiz CHIEF COMPLAINT Chief Complaint Patient presents with Arm Injury Pt arrives via [facility] ambulance [facility] with complaints of right elbow fracture. Patient [...] injury anywhere else. Patient was evaluated at [facility] emergency department prior to arrival and was noted to have a distal humerus fracture. Patient was transferred to [facility] ED for orthopedic consultation. Patient denies [...] distribution width (RBC) [Ratio] 13.3 % 11.6-14.6 [facility] Erythrocyte distribution wid th standard deviationOrdered By: Lali Pimentel on 06-16-2023 Erythrocyte distribution width (RBC) [Entitic vol] 43.9 fL 35.1-43.9 [facility] Hematocrit Auto (Bld) [Volum e fraction]Ordered By: Lali Pimentel on 06-16-2023 Hematocrit (Bld) [Volume fraction] 42.6 % 37-47 [facility] Immature granulocytes/100 WB C Auto (Bld)Ordered By: Lali Pimentel on 06-16-2023 Immature granulocytes/100 WBC (Bld) 0.500 % 0.0-0.9 [facility] Comment on above: IG% - Immature Granu locytes (promyelocytes, myelocytes and metamyelocytes) > 1% indicates that a LEFT SHIFT is Present. Laboratory - Blood bankon ABO group Nom (Bld) A [facility] D Ag Ql (RBC) Positive [facility] Laboratory - Chemistry and C hemistry - challengeOrdered By: Lali Pimentel on 06-16-2023 CO2 [Moles/Vol] 31.0 mmol/L 21.0-32.0 [facility] Urea nitrogen/Creatinine [Mass ratio] 20.9 mg/mg 10-20 [facility] Laboratory - Coagulationon 0 06-16-2023 PT Coag (Bld) [Time] 22.3 s High 9.0 - 12.0 s [facility] Laboratory - CoagulationOrde red By: Lali Pimentel on 06-16-2023 INR Coag (Bld) [Relative time] 2.2 {INR} [facility] PT Coag (PPP) [Time] 24.3 s 11.7-14.9 [facility] Laboratory - Hematology and Cell countsOrdered By: Lali Pimentel on 06-16-2023 MCH (RBC) [Entitic mass] 28.8 pg 27.0-32.0 [facility] MCHC (RBC) [Mass/Vol] 31.9 g/dL 32-36 [facility] Nucleated RBC/100 WBC (Bld) [Ratio] 0 % 0-5 [facility] Platelet mean volume (Bld) [Entitic vol] 9.9 fL 6.2-12.0 [facility] Platelets (Bld) [#/Vol] 414 10*3/uL 150-450 [facility] No Panel Informationon 06-[address] [facility] No Panel InformationOrdered By: Lali Pimentel on 06-16-2023 Estimated Creatinine Clearance Calc 35.56 ml/min [facility] Estimated GFR (MDRD) Amer 57 mL/min >60 [facility] Comment on above: GFR Calc Estimated GFR (MDRD) Non-Af Amer 47 mL/min >60 [facility] Comment on above: Non- GFR Calc PROTHROMBIN [...] Myocardial Infarction Performed By: #### L [id number] ####Cloth Beamer: ALEXANDRA BUSTAMANTE ([id number])[address] PT Coag (PPP) [Time] 22.3 s High 9.0-12.0 [facility] Comment on above: Performed By: #### L [id number] ####Cloth Beamer: ALEXANDRA BUSTAMANTE ([phone])[address] PT Coag (Bld) [Time]on 06-15 INR Coag (PPP) [Relative time] 2.2 {INR} High 0.9 - 1.[address] [facility] Comment on above: Recommended Anticoag ulant [...] 06-16-2023 RBC (Bld) [#/Vol] 4.72 10*6/uL 4.2-5.4 [facility] Serum or plasma calcium viktoria urement (mass/volume)Ordered By: Lali Pimentel on 06-16-2023 Calcium [Mass/Vol] 8.8 mg/dL 8.5-10.1 [facility] Serum or plasma creatinine m easurement (mass/volume)Ordered By: Lali Pimentel on 06-16-2023 Creatinine [Mass/Vol] 1.15 mg/dL 0.55-1.02 [facility] Comment on above: The validity of the calculated GFR & GFRAA in patients over 70 years has not been determined. Clinical correlation is essential. Serum or plasma urea nitroge n measurement (mass/volume)Ordered By: Lali Pimentel on 06-16-2023 Urea nitrogen [Mass/Vol] 24 mg/dL - [facility] Thin prep Papanicolaou smear with manual screeningOrdered By: Lali Pimentel on 06-16-2023 Thin prep Papanicolaou smear with manual screening 5 5- [facility] XR Elbow - right 2 Viewson 0 06-16-2023 Patient Name: EZRA [facility]ONZALEZ : 1935 [id number] Exam Date/Time: 06/16/2023 15:20 Procedure: XR ELBOW [...] Electronically Signed Date/Time: 06/16/2023 3:38 PM EDT [facility] Sae Dudley MD - 06/16/2023 Patient Name: EZRA GONZALEZ : 1935 [id number] Exam Date/Time: 06/16/2023 15:20 Procedure: XR ELBOW [...] 06/16/2023 3:38 PM EDT [facility] Radiology Study observation (narrative) [facility] alth XR Elbow - right 2 ViewsOrde red By: Sae Dudley on 06-16-2023 [facility] Work Phone: XR Elbow - right 3 [...] Electronically Signed Date/Time: 06/16/2023 3:24 PM EDT [facility] Patient Name: EZRA GONZALEZ : 1935 Exam Date/Time: 06/16/2023 14:30 Procedure: XR ELBOW 3+ VIEWS RIGHT Ordering Provider: TENORIO KASSIDY Reason For Exam: comminuted slightly displaced supracondylar fx of distal humerus with extension to the medial epicondyle - seen at [place] cannot see imaging Examination: Right elbow Clinical Indication: Pain Comparison: None [facility] Pastor Francisco MD - 06/16/2023 Patient Name: EZRA GONZALEZ : 1935 [id number] Exam Date/Time: 06/16/2023 14:30 Procedure: XR ELBOW 3+ VIEWS RIGHT Ordering Provider: TENORIO KASSIDY Reason For Exam: comminuted slightly displaced supracondylar fx of distal humerus with extension to the medial epicondyle - seen at [place] cannot see imaging Examination: Right elbow Clinical [...] 06/16/2023 3:24 PM EDT [facility] Radiology Study observation (narrative) [facility] alth XR Elbow - right 3 ViewsOrde red By: Pastor Francisco on 06-16-[address] [facility] Work Phone: XR Shoulder - right [...] EDT [facility] Patient Name: EZRA GONZALEZ : [...] joint. Acromioclavicular joint appears grossly intact. [facility] Reji Lemus MD - 06/16/2023 [...] 06/16/2023 3:30 PM EDT [facility] Radiology Study observation (narrative) [facility] Shoulder - right 2 ViewsO rdered By: Reji Lemus on 06-16-2023 [facility] Work Phone: Capillary blood internationa l normalized ratio (INR)Ordered By: Alexandra Hagen on 05-30-2023 INR Coag (BldC) [Relative time] 1.7 [facility] Comment on above: Critical Value > 4.0 Whole blood prothrombin time Ordered By: Alexandra Hagen on 05-30-2023 PT Coag (Bld) [Time] 18.0 s 11.7-14.9 [facility] Absolute lymphocyte countOrd ered By: Alexandra Hagen on 05-12-2023 Lymphocytes Auto (Unsp spec) [#/Vol] 1.60 10*3/uL 0.83-4.51 [facility] Automated lymphocyte count a s percentage of total leukocytesOrdered By: Alexandra Hagen on 05-12-2023 Lymphocytes/100 WBC Auto (Unsp spec) 20.2 % 19-41 [facility] Basophil percentageOrdered B y: Alexandra Hagen on 05-12-2023 Basophils/100 WBC (Bld) 0.5 % 0-1 [facility] Chloride [Moles/Vol] 109 mmol/L 98-107 [facility] Eosinophils/100 WBC (Bld) 3.7 % 0-5 [facility] Glucose [Mass/Vol] 206 mg/dL 74-106 [facility] Comment on above: Glucose result great er than or equal to 200 mg/dLsuggests DIABETES MELLITUS per A.D.A. criteria. Hemoglobin (Bld) [Mass/Vol] 13.1 g/dL 12.0-15.0 [facility] Monocytes/100 WBC (Bld) 7.8 % 0-10 [facility] Neutrophils (Bld) [#/Vol] 5.3 10*3/uL 2.0-7.7 [facility] Neutrophils/100 WBC (Bld) 67.5 % 47-70 [facility] Potassium [Moles/Vol] 4.6 mmol/L 3.5-5.1 [facility] Comment on above: Moderate Hemolysis, Result may be falsely increased. Sodium [Moles/Vol] 140 mmol/L 136-145 [facility] WBC (Bld) [#/Vol] 7.9 10*3/uL 4.4-11.0 [facility] Determination of erythrocyte mean corpuscular volume (MCV)Ordered By: Alexandra Hagen on 05-12-2023 MCV (RBC) [Entitic vol] 93.1 fL 81-99 [facility] Erythrocyte distribution wid th ratioOrdered By: Alexandra Hagen on 05-12-2023 Erythrocyte distribution width (RBC) [Ratio] 13.5 % 11.6-14.6 [facility] Erythrocyte distribution wid th standard deviationOrdered By: Alexandra Hagen on 05-12-2023 Erythrocyte distribution width (RBC) [Entitic vol] 46.0 fL 35.1-43.9 [facility] Hematocrit Auto (Bld) [Volum e fraction]Ordered By: Alexandra Hagen on 05-12-2023 Hematocrit (Bld) [Volume fraction] 41.8 % 37-47 [facility] Immature granulocytes/100 WB C Auto (Bld)Ordered By: Alexandra Hagen on 05-12-2023 Immature granulocytes/100 WBC (Bld) 0.300 % 0.0-0.9 [facility] Comment on above: IG% - Immature Granu locytes (promyelocytes, myelocytes and metamyelocytes) > 1% indicates that a LEFT SHIFT is Present. Laboratory - Chemistry and C hemistry - challengeOrdered By: Alexandra Hagen on 05-12-2023 CO2 [Moles/Vol] 25.0 mmol/L 21.0-32.0 [facility] Urea nitrogen/Creatinine [Mass ratio] 13.7 mg/mg 10-20 [facility] Laboratory - Hematology and Cell countsOrdered By: Alexandra Hagen on 05-12-2023 MCH (RBC) [Entitic mass] 29.2 pg 27.0-32.0 [facility] MCHC (RBC) [Mass/Vol] 31.3 g/dL 32-36 [facility] Nucleated RBC/100 WBC (Bld) [Ratio] 0 % 0-5 [facility] Platelet mean volume (Bld) [Entitic vol] 10.6 fL 6.2-12.0 [facility] Platelets (Bld) [#/Vol] 272 10*3/uL 150-450 [facility] No Panel InformationOrdered By: Alexandra Hagen on 05-12-2023 Estimated GFR (MDRD) Amer 53 mL/min >60 [facility] Comment on above: GFR Calc Estimated GFR (MDRD) Non-Af Amer 43 mL/min >60 [facility] Comment on above: Non- GFR Calc RBC Auto (Bld) [#/Vol]Ordere d By: Alexandra Hagen on 05-12-2023 RBC (Bld) [#/Vol] 4.49 10*6/uL 4.2-5.4 [facility] Serum or plasma calcium viktoria urement (mass/volume)Ordered By: Alexandra Hagen on 05-12-2023 Calcium [Mass/Vol] 8.5 mg/dL 8.5-10.1 [facility] Serum or plasma creatinine m easurement (mass/volume)Ordered By: Alexandra Hagen on 05-12-2023 Creatinine [Mass/Vol] 1.24 mg/dL 0.55-1.02 [facility] Comment on above: The validity of the calculated GFR & GFRAA in patients over 70 years has not been determined. Clinical correlation is essential. Serum or plasma urea nitroge n measurement (mass/volume)Ordered By: Alexandra Hagen on 05-12-2023 Urea nitrogen [Mass/Vol] 17 mg/dL 7-18 [facility] Thin prep Papanicolaou smear with manual screeningOrdered By: Alexandra Hagen on 05-12-2023 Thin prep Papanicolaou smear with manual screening 6 5-15 [facility] Whole blood hemoglobin A1c/t otal hemoglobin ratio (mass fraction)Ordered By: Alexandra Hagen on 05-12-2023 HbA1c (Bld) [Mass fraction] 6.8 % 3.8-5.6 [facility] Comment on above: Normal < 5.7 % Predi abetic 5.7 - 6.4 % Diabetic >or= 6.5 % Please note range changes. Capillary blood internationa l normalized ratio (INR)Ordered By: Alexandra Hagen on 05-01-2023 INR Coag (BldC) [Relative time] 2.0 [facility] Comment on above: Critical Value > 4.0 Whole blood prothrombin time Ordered By: Alexandra Hagen on 05-01-2023 PT Coag (Bld) [Time] 21.0 s 11.7-14.9 [facility] International normalized rat io (INR) calculationOrdered By: Alexandra Xiao on 04-17-2023 INR Coag (PPP) [Relative time] 1.8 {INR} [facility] Laboratory - CoagulationOrde red By: Alexandra Hagen on 04-17-2023 PT Coag (PPP) [Time] 21.0 s 11.7-14.9 [facility] Laboratory - CoagulationOrde red By: Alexandra Hagen on 03-20-2023 INR Coag (Bld) [Relative time] 2.4 {INR} [facility] Comment on above: Critical Value > 4.0 Whole blood prothrombin time Ordered By: Alexandra Hagen on 03-20-2023 PT Coag (Bld) [Time] 25.7 s 11.7-14.9 [facility] Basophil percentageOrdered B y: Alexandra Hagen on 02-21-2023 Bilirubin [Mass/Vol] 0.60 mg/dL 0.20-1.00 [facility] Comment on above: For patients on eltr ombopag therapy, use of Dimension [employer] TBIL is not recommended. Chloride [Moles/Vol] 107 mmol/L 98-107 [facility] Cholesterol [Mass/Vol] 127 mg/dL <200 [facility] Comment on above: <200 mg/dL Desirable 200-240 mg/dL Borderline >240 mg/dL High Risk Glucose [Mass/Vol] 134 mg/dL 74-106 [facility] Comment on above: Fasting Glucose resu lt greater than or equal to 126 mg/dL suggests DIABETES MELLITUS per A.D.A. criteria. Potassium [Moles/Vol] 4.2 mmol/L 3.5-5.1 [facility] Protein [Mass/Vol] 6.2 g/dL 6.4-8.2 [facility] Sodium [Moles/Vol] 138 mmol/L 136-145 [facility] Triglyceride [Mass/Vol] 102 mg/dL <199 [facility] Comment on above: The drugs N-Acetylcy steine and Metamizole may falsely depress this assay.Serum Triglycerides Reference Interval Normal <150 mg/dL Borderline high 150 - 199 mg/dL High 200 - 499 mg/dL Very High > or = 500 mg/dL WBC (Bld) [#/Vol] 7.7 10*3/uL 4.4-11.0 [facility] Blood erythrocytes count (nu mber/volume)Ordered By: Alexandra Hagen on 02-21-2023 RBC (Bld) [#/Vol] 4.19 10*6/uL 4.2-5.4 [facility] Blood hemoglobin measurement (mass/volume)Ordered By: Alexandra Hagen on 02-21-2023 Hemoglobin (Bld) [Mass/Vol] 12.5 g/dL 12.0-15.0 [facility] Blood platelet mean volumeOr dered By: Alexandra Hagen on 02-21-2023 Platelet mean volume (Bld) [Entitic vol] 10.8 fL 6.2-12.0 [facility] Determination of erythrocyte mean corpuscular volume (MCV)Ordered By: Alexandra Hagen on 02-21-2023 MCV (RBC) [Entitic vol] 91.2 fL 81-99 [facility] Hematocrit Auto (Bld) [Volum e fraction]Ordered By: Alexandra Hagen on 02-21-2023 Hematocrit (Bld) [Volume fraction] 38.2 % 37-47 [facility] INR in Blood by Coagulation assayOrdered By: Alexandra Hagen on 02-21-2023 INR Coag (Bld) [Relative time] 2.3 {INR} [facility] Laboratory - Chemistry and C hemistry - challengeOrdered By: Alexandra Hagen on 02-21-2023 ALP [Catalytic activity/Vol] 84 U/L 45-117 [facility] ALT [Catalytic activity/Vol] 11 U/L 13-56 [facility] CO2 [Moles/Vol] 27.0 mmol/L 21.0-32.0 [facility] Globulin (S) [Mass/Vol] 3.3 g/dL 2.2-4.2 [facility] Urea nitrogen/Creatinine [Mass ratio] 14.0 mg/mg 10-20 [facility] Laboratory - CoagulationOrde red By: Alexandra Hagen on 02-21-2023 PT Coag (PPP) [Time] 25.3 s 11.7-14.9 [facility] Laboratory - Hematology and Cell countsOrdered By: Alexandra Hagen on 02-21-2023 Erythrocyte distribution width (RBC) [Entitic vol] 44.8 fL 35.1-43.9 [facility] Erythrocyte distribution width (RBC) [Ratio] 13.4 % 11.6-14.6 [facility] MCH (RBC) [Entitic mass] 29.8 pg 27.0-32.0 [facility] MCHC Auto (RBC) [Mass/Vol]Or dered By: Alexandra Hagen on 02-21-2023 MCHC (RBC) [Mass/Vol] 32.7 g/dL 32-36 [facility] No Panel InformationOrdered By: Alexandra Hagen on 02-21-2023 Estimated GFR (MDRD) Amer 68 mL/min >60 [facility] Comment on above: GFR Calc Estimated GFR (MDRD) Non-Af Amer 56 mL/min >60 [facility] Comment on above: Non- GFR Calc Platelets bldOrdered By: Alexandra Hagen on 02-21-2023 Platelets (Bld) [#/Vol] 297 10*3/uL 150-450 [facility] Serum or plasma albumin viktoria urement (mass/volume)Ordered By: Alexandra Hagen on 02-21-2023 Albumin [Mass/Vol] 2.9 g/dL 3.2-5.0 [facility] Serum or plasma albumin/glob ulin mass ratioOrdered By: Alexandra Hagen on 02-21-2023 Albumin/Globulin [Mass ratio] 0.9 {ratio} 0.9-2.4 [facility] Serum or plasma calcium viktoria urement (mass/volume)Ordered By: Alexandra Hagen on 02-21-2023 Calcium [Mass/Vol] 8.4 mg/dL 8.5-10.1 [facility] Serum or plasma cholesterol in HDL measurement (mass/volume)Ordered By: Alexandra Hagen on 02-21-2023 Cholesterol in HDL [Mass/Vol] 50 mg/dL >40 [facility] Comment on above: The drugs N-Acetylcy steine and Metamizole may falsely depress this assay. Reference Range HDL <40 mg/dL Low HDL Cholesterol HDL >or= 60 mg/dL High HDL Cholesterol Serum or plasma cholesterol in VLDL measurement (mass/volume)Ordered By: Alexandra Hagen on 02-21-2023 Cholesterol in VLDL [Mass/Vol] 20 mg/dL 5-40 [facility] Serum or plasma creatinine m easurement (mass/volume)Ordered By: Alexandra Hagen on 02-21-2023 Creatinine [Mass/Vol] 1.00 mg/dL 0.55-1.02 [facility] Comment on above: The validity of the calculated GFR & GFRAA in patients over 70 years has not been determined. Clinical correlation is essential. Serum or plasma low density lipoprotein (LDL) cholesterol measurement (mass/volume)Ordered By: Alexandra Hagen on 02-21-2023 Cholesterol in LDL [Mass/Vol] 57 mg/dL 0-130 [facility] Serum or plasma urea nitroge n measurement (mass/volume)Ordered By: Alexandra Hagen on 02-21-2023 Urea nitrogen [Mass/Vol] 14 mg/dL 7-18 [facility] Thin prep Papanicolaou smear with manual screeningOrdered By: Alexandra Hagen on 02-21-2023 Thin prep Papanicolaou smear with manual screening 16 U/L 15-37 [facility] Thin prep Papanicolaou smear with manual screening 4 5-15 [facility] Albumin Elph [Mass/Vol]Order ed By: Anant Juarez on 01-20-2023 Albumin [Mass/Vol] 3.4 g/dL 2.9-4.4 [facility] Basophil percentageOrdered B y: Anant Juarez on 01-20-2023 Basophil percentage Comment . [facility] Comment on above: No monoclonality det ected.Performed at: - [address] [id number] Director: Master Vee PhD, Phone: [phone] Interpretation of serum or p lasma protein pattern by immunofixation (narrative resultOrdered By: Anant Juarez on 01-20-2023 Protein Fractions Immunofixation Manuel [Interp] See comment [facility] Comment on above: Result: Not Observed No Panel InformationOrdered By: Anant Juarez on 01-20-2023 Addendum Document Comment . [facility] Comment on above: Protein electrophore sis scan will follow via computer,mail, or field sampling technician delivery. Serum [id number] measu rement by electrophoresisOrdered By: Anant Juarez on 01-20-2023 Alpha 1 globulin Elph [Mass/Vol] 0.3 g/dL 0.0-0.4 [facility] Alpha 1 globulin Elph [Mass/Vol] 0.9 g/dL 0.4-1.0 [facility] Serum globulin measurement ( mass/volume)Ordered By: Anant Juarez on 01-20-2023 Globulin (S) [Mass/Vol] 3.0 g/dL 2.2-3.9 [facility] Serum or plasma IgA measurem ent (mass/volume)Ordered By: Anant Juarez on 01-20-2023 IgA [Mass/Vol] 158 mg/dL 64-422 [facility] Serum or plasma IgG measurem ent (mass/volume)Ordered By: Anant Juarez on 01-20-2023 IgG [Mass/Vol] 847 mg/dL [id number] [facility] Serum or plasma IgM measurem ent (mass/volume)Ordered By: Anant Juarez on 01-20-2023 IgM [Mass/Vol] 48 mg/dL 26-217 [facility] Serum or plasma beta globuli n measurement by electrophoresis (mass/volume)Ordered By: Anant Juarez 01-20-2023 Beta globulin Elph [Mass/Vol] 1.0 g/dL 0.7-1.3 [facility] Serum or plasma gamma globul in measurement by electrophoresis (mass/volume)Ordered By: Anant Juarez on 01-20-2023 Gamma globulin Elph [Mass/Vol] 0.7 g/dL 0.4-1.8 [facility] Serum or plasma immunoelectr ophoresis interpretation (nominal result)Ordered By: Anant Juarez on 01-20-2023 Interpretation IEP [Interp] Comment . [facility] Comment on above: No monoclonality det ected. Thin prep Papanicolaou smear with manual screeningOrdered By: Anant Juarez on 01-20-2023 Thin prep Papanicolaou smear with manual screening 1.2 0.7-1.7 [facility] Total protein bloodOrdered B y: Anant Juarez on 01-20-2023 Protein [Mass/Vol] 6.4 g/dL 6.0-8.5 [facility] Laboratory - CoagulationOrde red By: Alexandra Hagen on 01-16-2023 INR Coag (Bld) [Relative time] 2.2 {INR} [facility] Comment on above: Critical Value > 4.0 Whole blood prothrombin time Ordered By: Alexandra aHgen on 01-16-2023 PT Coag (Bld) [Time] 24.2 s 11.7-14.9 [facility] Absolute lymphocyte countOrd ered By: Lynn Horn on 12-28-2022 Lymphocytes Auto (Unsp spec) [#/Vol] 1.57 10*3/uL 0.83-4.51 [facility] Basophil percentageOrdered B y: Lynn Horn on 12-28-2022 Basophils/100 WBC (Bld) 0.6 % 0-1 [facility] Chloride [Moles/Vol] 108 mmol/L 98-107 [facility] Eosinophils/100 WBC (Bld) 3.0 % 0-5 [facility] Glucose [Mass/Vol] 117 mg/dL 74-106 [facility] Comment on above: Fasting Glucose resu lt from 100 to 125 mg/dL suggests IMPAIRED HOMEOSTASIS per A.D.A. criteria. Neutrophils (Bld) [#/Vol] 5.3 10*3/uL 2.0-7.7 [facility] Neutrophils/100 WBC (Bld) 66.8 % 47-70 [facility] Potassium [Moles/Vol] 3.9 mmol/L 3.5-5.1 [facility] Sodium [Moles/Vol] 138 mmol/L 136-145 [facility] WBC (Bld) [#/Vol] 7.9 10*3/uL 4.4-11.0 [facility] Blood erythrocytes count (nu mber/volume)Ordered By: Lynn Horn on 12-28-2022 RBC (Bld) [#/Vol] 4.32 10*6/uL 4.2-5.4 [facility] Blood hemoglobin measurement (mass/volume)Ordered By: Lynn Horn on 12-28-2022 Hemoglobin (Bld) [Mass/Vol] 12.8 g/dL 12.0-15.0 [facility] Blood lymphocytes/100 leukoc ytesOrdered By: Lynn Horn on 12-28-2022 Lymphocytes/100 WBC (Bld) 19.8 % 19-41 [facility] Blood monocytes/100 leukocyt esOrdered By: Lynn Horn on 12-28-2022 Monocytes/100 WBC (Bld) 9.5 % 0-10 [facility] Blood platelet mean volumeOr dered By: Lynn Horn on 12-28-2022 Platelet mean volume (Bld) [Entitic vol] 10.6 fL 6.2-12.0 [facility] Determination of erythrocyte mean corpuscular volume (MCV)Ordered By: Lynn Horn on 12-28-2022 MCV (RBC) [Entitic vol] 91.0 fL 81-99 [facility] Hematocrit Auto (Bld) [Volum e fraction]Ordered By: Lynn Horn on 12-28-2022 Hematocrit (Bld) [Volume fraction] 39.3 % 37-47 [facility] INR in Blood by Coagulation assayOrdered By: Lynn Horn on 12-28-2022 INR Coag (Bld) [Relative time] 2.1 {INR} [facility] Laboratory - Chemistry and C hemistry - challengeOrdered By: Lynn Horn on 12-28-2022 CO2 [Moles/Vol] 27.0 mmol/L 21.0-32.0 [facility] Urea nitrogen/Creatinine [Mass ratio] 15.7 mg/mg 10-20 [facility] Laboratory - CoagulationOrde red By: Lynn Horn on 12-28-2022 PT Coag (PPP) [Time] 23.8 s 11.7-14.9 [facility] Laboratory - Hematology and Cell countsOrdered By: Lynn Horn on 12-28-2022 Erythrocyte distribution width (RBC) [Entitic vol] 43.0 fL 35.1-43.9 [facility] Erythrocyte distribution width (RBC) [Ratio] 12.9 % 11.6-14.6 [facility] Immature granulocytes/100 WBC (Bld) 0.300 % 0.0-0.9 [facility] Comment on above: IG% - Immature Granu locytes (promyelocytes, myelocytes and metamyelocytes) > 1% indicates that a LEFT SHIFT is Present. MCH (RBC) [Entitic mass] 29.6 pg 27.0-32.0 [facility] Nucleated RBC/100 WBC (Bld) [Ratio] 0 % 0-5 [facility] MCHC Auto (RBC) [Mass/Vol]Or dered By: Lynn Horn on 12-28-2022 MCHC (RBC) [Mass/Vol] 32.6 g/dL 32-36 [facility] No Panel InformationOrdered By: Lynn Horn on 12-28-2022 Estimated Creatinine Clearance Calc 36.84 ml/min [facility] Estimated GFR (MDRD) Amer 77 mL/min >60 [facility] Comment on above: GFR Calc Estimated GFR (MDRD) Non-Af Amer 64 mL/min >60 [facility] Comment on above: Non- GFR Calc Platelets bldOrdered By: Lois Horn on 12-28-2022 Platelets (Bld) [#/Vol] 272 10*3/uL 150-450 [facility] Serum or plasma calcium viktoria urement (mass/volume)Ordered By: Lynn Horn on 12-28-2022 Calcium [Mass/Vol] 8.3 mg/dL 8.5-10.1 [facility] Serum or plasma creatinine m easurement (mass/volume)Ordered By: Lynn Horn on 12-28-2022 Creatinine [Mass/Vol] 0.89 mg/dL 0.55-1.02 [facility] Comment on above: The validity of the calculated GFR & GFRAA in patients over 70 years has not been determined. Clinical correlation is essential. Serum or plasma urea nitroge n measurement (mass/volume)Ordered By: Lynn Horn on 12-28-2022 Urea nitrogen [Mass/Vol] 14 mg/dL 7-18 [facility] Thin prep Papanicolaou smear with manual screeningOrdered By: Lynn Horn on 12-28-2022 Thin prep Papanicolaou smear with manual screening 3 5-15 [facility] Laboratory - CoagulationOrde red By: Lali Pimentel on 12-27-2022 aPTT Coag (Bld) [Time] 48.2 s 24.1-36.2 [facility] No Panel InformationOrdered By: Lali Pimentel on 12-27-2022 Troponin I High Sensitivity 10 pg/mL 3.0-54.0 [facility] Comment on above: Please Note: New Evon t Units and Gender Specific Reference Ranges. For more information see Policy Stat Procedure [facility] High Sensitivity Troponin (TNIH) and attachments. Laboratory - CoagulationOrde red By: Alexandra Hagen on 12-19-2022 INR Coag (Bld) [Relative time] 2.8 {INR} [facility] Comment on above: Critical Value > 4.0 Whole blood prothrombin time Ordered By: Alexandra Hagen on 12-19-2022 PT Coag (Bld) [Time] 29.7 s 11.7-14.9 [facility] Absolute lymphocyte countOrd ered By: Alexandra Hagen on 12-09-2022 Lymphocytes Auto (Unsp spec) [#/Vol] 1.65 10*3/uL 0.83-4.51 [facility] Basophil percentageOrdered B y: Alexandra Hagen on 12-09-2022 Basophils/100 WBC (Bld) 0.4 % 0-1 [facility] Chloride [Moles/Vol] 107 mmol/L 98-107 [facility] Eosinophils/100 WBC (Bld) 3.6 % 0-5 [facility] Glucose [Mass/Vol] 125 mg/dL 74-106 [facility] Comment on above: Fasting Glucose resu lt from 100 to 125 mg/dL suggests IMPAIRED HOMEOSTASIS per A.D.A. criteria. Neutrophils (Bld) [#/Vol] 4.3 10*3/uL 2.0-7.7 [facility] Neutrophils/100 WBC (Bld) 61.6 % 47-70 [facility] Potassium [Moles/Vol] 4.8 mmol/L 3.5-5.1 [facility] Sodium [Moles/Vol] 138 mmol/L 136-145 [facility] WBC (Bld) [#/Vol] 7.0 10*3/uL 4.4-11.0 [facility] Blood erythrocytes count (nu mber/volume)Ordered By: Alexandra Hagen on 12-09-2022 RBC (Bld) [#/Vol] 4.30 10*6/uL 4.2-5.4 [facility] Blood hemoglobin measurement (mass/volume)Ordered By: Alexandra Hagen on 12-09-2022 Hemoglobin (Bld) [Mass/Vol] 13.1 g/dL 12.0-15.0 [facility] Blood lymphocytes/100 leukoc ytesOrdered By: Alexandra Hagen on 12-09-2022 Lymphocytes/100 WBC (Bld) 23.7 % 19-41 [facility] Blood monocytes/100 leukocyt esOrdered By: Alexandra Hagen on 12-09-2022 Monocytes/100 WBC (Bld) 10.4 % 0-10 [facility] Blood platelet mean volumeOr dered By: Alexandra Hagen on 12-09-2022 Platelet mean volume (Bld) [Entitic vol] 10.7 fL 6.2-12.0 [facility] Determination of erythrocyte mean corpuscular volume (MCV)Ordered By: Alexandra Hagen on 12-09-2022 MCV (RBC) [Entitic vol] 92.3 fL 81-99 [facility] Hematocrit Auto (Bld) [Volum e fraction]Ordered By: Alexandra Hagen on 12-09-2022 Hematocrit (Bld) [Volume fraction] 39.7 % 37-47 [facility] Laboratory - Chemistry and C hemistry - challengeOrdered By: Alexandra Hagen on 12-09-2022 CO2 [Moles/Vol] 26.0 mmol/L 21.0-32.0 [facility] Urea nitrogen/Creatinine [Mass ratio] 14.4 mg/mg 10-20 [facility] Laboratory - Hematology and Cell countsOrdered By: Alexandra Hagen on 12-09-2022 Erythrocyte distribution width (RBC) [Entitic vol] 44.0 fL 35.1-43.9 [facility] Erythrocyte distribution width (RBC) [Ratio] 13.1 % 11.6-14.6 [facility] Immature granulocytes/100 WBC (Bld) 0.300 % 0.0-0.9 [facility] Comment on above: IG% - Immature Granu locytes (promyelocytes, myelocytes and metamyelocytes) > 1% indicates that a LEFT SHIFT is Present. MCH (RBC) [Entitic mass] 30.5 pg 27.0-32.0 [facility] Nucleated RBC/100 WBC (Bld) [Ratio] 0 % 0-5 [facility] MCHC Auto (RBC) [Mass/Vol]Or dered By: Alexandra Hagen on 12-09-2022 MCHC (RBC) [Mass/Vol] 33.0 g/dL 32-36 [facility] No Panel InformationOrdered By: Alexandra Hagen on 12-09-2022 Estimated GFR (MDRD) Amer 60 mL/min >60 [facility] Comment on above: GFR Calc Estimated GFR (MDRD) Non-Af Amer 49 mL/min >60 [facility] Comment on above: Non- GFR Calc Platelets bldOrdered By: Alexandra Hagen on 12-09-2022 Platelets (Bld) [#/Vol] 293 10*3/uL 150-450 [facility] Serum or plasma calcium viktoria urement (mass/volume)Ordered By: Alexandra Hagen on 12-09-2022 Calcium [Mass/Vol] 8.7 mg/dL 8.5-10.1 [facility] Serum or plasma creatinine m easurement (mass/volume)Ordered By: Alexandra Hagen on 12-09-2022 Creatinine [Mass/Vol] 1.11 mg/dL 0.55-1.02 [facility] Comment on above: The validity of the calculated GFR & GFRAA in patients over 70 years has not been determined. Clinical correlation is essential. Serum or plasma urea nitroge n measurement (mass/volume)Ordered By: Alexandra Hagen on 12-09-2022 Urea nitrogen [Mass/Vol] 16 mg/dL 7-18 [facility] Thin prep Papanicolaou smear with manual screeningOrdered By: Alexandra Hagen on 12-09-2022 Thin prep Papanicolaou smear with manual screening 5 5-15 [facility] Whole blood hemoglobin A1c/t otal hemoglobin ratio (mass fraction)Ordered By: Alexandra Hagen on 12-09-2022 HbA1c (Bld) [Mass fraction] 6.7 % 3.8-5.6 [facility] Comment on above: Normal < 5.7 % Predi abetic 5.7 - 6.4 % Diabetic >or= 6.5 % Please note range changes. Basophil percentageOrdered B y: Alexandra Hagen on 11-20-2022 Bilirubin [Mass/Vol] 0.50 mg/dL 0.20-1.00 [facility] Comment on above: For patients on eltr ombopag therapy, use of Dimension [facility] TBIL is not recommended. Chloride [Moles/Vol] 105 mmol/L 98-107 [facility] Cholesterol [Mass/Vol] 167 mg/dL <200 [facility] Comment on above: <200 mg/dL Desirable 200-240 mg/dL Borderline >240 mg/dL High Risk Glucose [Mass/Vol] 153 mg/dL 74-106 [facility] Comment on above: Fasting Glucose resu lt greater than or equal to 126 mg/dL suggests DIABETES MELLITUS per A.D.A. criteria. Potassium [Moles/Vol] 4.2 mmol/L 3.5-5.1 [facility] Protein [Mass/Vol] 6.7 g/dL 6.4-8.2 [facility] Sodium [Moles/Vol] 138 mmol/L 136-145 [facility] Triglyceride [Mass/Vol] 120 mg/dL <199 [facility] Comment on above: The drugs N-Acetylcy steine and Metamizole may falsely depress this assay.Serum Triglycerides Reference Interval Normal <150 mg/dL Borderline high 150 - 199 mg/dL High 200 - 499 mg/dL Very High > or = 500 mg/dL WBC (Bld) [#/Vol] 7.4 10*3/uL 4.4-11.0 [facility] Blood erythrocytes count (nu mber/volume)Ordered By: Alexandra Hagen on 11-20-2022 RBC (Bld) [#/Vol] 4.37 10*6/uL 4.2-5.4 [facility] Blood hemoglobin measurement (mass/volume)Ordered By: Alexandra Hagen on 11-20-2022 Hemoglobin (Bld) [Mass/Vol] 13.1 g/dL 12.0-15.0 [facility] Blood platelet mean volumeOr dered By: Alexandra Hagen on 11-20-2022 Platelet mean volume (Bld) [Entitic vol] 10.8 fL 6.2-12.0 [facility] Determination of erythrocyte mean corpuscular volume (MCV)Ordered By: Alexandra Hagen on 11-20-2022 MCV (RBC) [Entitic vol] 91.5 fL 81-99 [facility] Hematocrit Auto (Bld) [Volum e fraction]Ordered By: Alexandra Hagen on 11-20-2022 Hematocrit (Bld) [Volume fraction] 40.0 % 37-47 [facility] INR in Blood by Coagulation assayOrdered By: Alexandra Hagen on 11-20-2022 INR Coag (Bld) [Relative time] 2.0 {INR} [facility] Laboratory - Chemistry and C hemistry - challengeOrdered By: Alexandra Hagen on 11-20-2022 ALP [Catalytic activity/Vol] 72 U/L 45-117 [facility] ALT [Catalytic activity/Vol] 13 U/L 13-56 [facility] CO2 [Moles/Vol] 30.0 mmol/L 21.0-32.0 [facility] Globulin (S) [Mass/Vol] 3.6 g/dL 2.2-4.2 [facility] Urea nitrogen/Creatinine [Mass ratio] 12.8 mg/mg 10-20 [facility] Laboratory - CoagulationOrde red By: Alexandra Hagen on 11-20-2022 PT Coag (PPP) [Time] 22.6 s 11.7-14.9 [facility] Laboratory - Hematology and Cell countsOrdered By: Alexandra Hagen on 11-20-2022 Erythrocyte distribution width (RBC) [Entitic vol] 43.4 fL 35.1-43.9 [facility] Erythrocyte distribution width (RBC) [Ratio] 12.9 % 11.6-14.6 [facility] MCH (RBC) [Entitic mass] 30.0 pg 27.0-32.0 [facility] MCHC Auto (RBC) [Mass/Vol]Or dered By: Alexandra Hagen on 11-20-2022 MCHC (RBC) [Mass/Vol] 32.8 g/dL 32-36 [facility] No Panel InformationOrdered By: Alexandra Hagen on 11-20-2022 Estimated GFR (MDRD) Amer 61 mL/min >60 [facility] Comment on above: GFR Calc Estimated GFR (MDRD) Non-Af Amer 50 mL/min >60 [facility] Comment on above: Non- GFR Calc Platelets bldOrdered By: Alexandra Hagen on 11-20-2022 Platelets (Bld) [#/Vol] 310 10*3/uL 150-450 [facility] Serum or plasma albumin viktoria urement (mass/volume)Ordered By: Alexandra Hagen on 11-20-2022 Albumin [Mass/Vol] 3.1 g/dL 3.2-5.0 [facility] Serum or plasma albumin/glob ulin mass ratioOrdered By: Alexandra Hagen on 11-20-2022 Albumin/Globulin [Mass ratio] 0.9 {ratio} 0.9-2.4 [facility] Serum or plasma calcium viktoria urement (mass/volume)Ordered By: Alexandra Hagen on 11-20-2022 Calcium [Mass/Vol] 8.6 mg/dL 8.5-10.1 [facility] Serum or plasma cholesterol in HDL measurement (mass/volume)Ordered By: lAexandra Hagen on 11-20-2022 Cholesterol in HDL [Mass/Vol] 55 mg/dL >40 [facility] Comment on above: The drugs N-Acetylcy steine and Metamizole may falsely depress this assay. Reference Range HDL <40 mg/dL Low HDL Cholesterol HDL >or= 60 mg/dL High HDL Cholesterol Serum or plasma cholesterol in VLDL measurement (mass/volume)Ordered By: Alexandra Hagen on 11-20-2022 Cholesterol in VLDL [Mass/Vol] 24 mg/dL 5-40 [facility] Serum or plasma creatinine m easurement (mass/volume)Ordered By: Alexandra Hagen on 11-20-2022 Creatinine [Mass/Vol] 1.09 mg/dL 0.55-1.02 [facility] Comment on above: The validity of the calculated GFR & GFRAA in patients over 70 years has not been determined. Clinical correlation is essential. Serum or plasma low density lipoprotein (LDL) cholesterol measurement (mass/volume)Ordered By: Alexandra Hagen on 11-20-2022 Cholesterol in LDL [Mass/Vol] 88 mg/dL 0-130 [facility] Serum or plasma urea nitroge n measurement (mass/volume)Ordered By: Alexandra Hagen on 11-20-2022 Urea nitrogen [Mass/Vol] 14 mg/dL 7-18 [facility] Thin prep Papanicolaou smear with manual screeningOrdered By: Alexandra Hagen on 11-20-2022 Thin prep Papanicolaou smear with manual screening 15 U/L 15-37 [facility] Thin prep Papanicolaou smear with manual screening 3 5-15 [facility] Absolute lymphocyte countOrd ered By: Mo Corea on 11-18-2022 Lymphocytes Auto (Unsp spec) [#/Vol] 1.95 10*3/uL 0.83-4.51 [facility] Basophil percentageOrdered B y: Mo Corea on 11-18-2022 Basophil percentage 0-5 SEEN /hpf 0-5 [facility] Basophils/100 WBC (Bld) 0.4 % 0-1 [facility] Bilirubin [Mass/Vol] 0.40 mg/dL 0.20-1.00 [facility] Comment on above: For patients on eltr ombopag therapy, use of Dimension [facility] TBIL is not recommended. Chloride [Moles/Vol] 108 mmol/L 98-107 [facility] Eosinophils/100 WBC (Bld) 3.4 % 0-5 [facility] Glucose [Mass/Vol] 126 mg/dL 74-106 [facility] Comment on above: Fasting Glucose resu lt greater than or equal to 126 mg/dL suggests DIABETES MELLITUS per A.D.A. criteria. Neutrophils (Bld) [#/Vol] 4.4 10*3/uL 2.0-7.7 [facility] Neutrophils/100 WBC (Bld) 59.9 % 47-70 [facility] Potassium [Moles/Vol] 3.9 mmol/L 3.5-5.1 [facility] Protein [Mass/Vol] 6.9 g/dL 6.4-8.2 [facility] Sodium [Moles/Vol] 140 mmol/L 136-145 [facility] WBC (Bld) [#/Vol] 7.3 10*3/uL 4.4-11.0 [facility] Bilirubin Test strip Ql (U)O rdered By: Mo Corea on 11-18-2022 Bilirubin Ql (U) Negative Negative [facility] Blood erythrocytes count (nu mber/volume)Ordered By: Mo Corea on 11-18-2022 RBC (Bld) [#/Vol] 4.63 10*6/uL 4.2-5.4 [facility] Blood hemoglobin measurement (mass/volume)Ordered By: Mo Corea on 11-18-2022 Hemoglobin (Bld) [Mass/Vol] 13.9 g/dL 12.0-15.0 [facility] Blood lymphocytes/100 leukoc ytesOrdered By: Mo Corea on 11-18-2022 Lymphocytes/100 WBC (Bld) 26.8 % 19-41 [facility] Blood monocytes/100 leukocyt esOrdered By: Mo Corea on 11-18-2022 Monocytes/100 WBC (Bld) 9.2 % 0-10 [facility] Blood platelet mean volumeOr dered By: Mo Corea on 11-18-2022 Platelet mean volume (Bld) [Entitic vol] 10.5 fL 6.2-12.0 [facility] Determination of erythrocyte mean corpuscular volume (MCV)Ordered By: Mo Corea on 11-18-2022 MCV (RBC) [Entitic vol] 92.4 fL 81-99 [facility] Hematocrit Auto (Bld) [Volum e fraction]Ordered By: Mo Corea on 11-18-2022 Hematocrit (Bld) [Volume fraction] 42.8 % 37-47 [facility] INR in Blood by Coagulation assayOrdered By: Mo Corea on 11-18-2022 INR Coag (Bld) [Relative time] 2.0 {INR} [facility] Ketones Test strip Ql (U)Ord ered By: Mo Corea on 11-18-2022 Ketones Ql (U) Negative Negative [facility] Laboratory - Chemistry and C hemistry - challengeOrdered By: Mo Corea on 11-18-2022 ALP [Catalytic activity/Vol] 76 U/L 45-117 [facility] ALT [Catalytic activity/Vol] 13 U/L 13-56 [facility] CO2 [Moles/Vol] 30.0 mmol/L 21.0-32.0 [facility] Globulin (S) [Mass/Vol] 3.6 g/dL 2.2-4.2 [facility] Urea nitrogen/Creatinine [Mass ratio] 13.6 mg/mg 10-20 [facility] Laboratory - CoagulationOrde red By: Mo Corea on 11-18-2022 aPTT Coag (Bld) [Time] 48.1 s 24.1-36.2 [facility] PT Coag (PPP) [Time] 22.7 s 11.7-14.9 [facility] Laboratory - Hematology and Cell countsOrdered By: Mo Corea on 11-18-2022 Erythrocyte distribution width (RBC) [Entitic vol] 44.2 fL 35.1-43.9 [facility] Erythrocyte distribution width (RBC) [Ratio] 13.1 % 11.6-14.6 [facility] Immature granulocytes/100 WBC (Bld) 0.300 % 0.0-0.9 [facility] Comment on above: IG% - Immature Granu locytes (promyelocytes, myelocytes and metamyelocytes) > 1% indicates that a LEFT SHIFT is Present. MCH (RBC) [Entitic mass] 30.0 pg 27.0-32.0 [facility] Nucleated RBC/100 WBC (Bld) [Ratio] 0 % 0-5 [facility] MCHC Auto (RBC) [Mass/Vol]Or dered By: Mo Corea on 11-18-2022 MCHC (RBC) [Mass/Vol] 32.5 g/dL 32-36 [facility] Mucus LM Ql (Urine sed)Order ed By: Mo Corea on 11-18-2022 Mucus Ql (Urine sed) 0 SEEN /hpf [facility] Nitrite Test strip Ql (U)Ord ered By: Mo Corea on 11-18-2022 Nitrite Ql (U) Negative Negative [facility] No Panel InformationOrdered By: Mo Corea on 11-18-2022 Estimated Creatinine Clearance Calc 31.83 ml/min [facility] Estimated GFR (MDRD) Amer 65 mL/min >60 [facility] Comment on above: GFR Calc Estimated GFR (MDRD) Non-Af Amer 54 mL/min >60 [facility] Comment on above: Non- GFR Calc Platelets bldOrdered By: Rebecca Corea on 11-18-2022 Platelets (Bld) [#/Vol] 289 10*3/uL 150-450 [facility] Protein Test strip Ql (U)Ord ered By: Mo Corea on 11-18-2022 Protein Ql (U) 15 mg/dl Negative [facility] Serum or plasma albumin viktoria urement (mass/volume)Ordered By: Mo Corea on 11-18-2022 Albumin [Mass/Vol] 3.3 g/dL 3.2-5.0 [facility] Serum or plasma albumin/glob ulin mass ratioOrdered By: Mo Corea on 11-18-2022 Albumin/Globulin [Mass ratio] 0.9 {ratio} 0.9-2.4 [facility] Serum or plasma calcium viktoria urement (mass/volume)Ordered By: Mo Corea on 11-18-2022 Calcium [Mass/Vol] 8.7 mg/dL 8.5-10.1 [facility] Serum or plasma creatinine m easurement (mass/volume)Ordered By: Mo Corea on 11-18-2022 Creatinine [Mass/Vol] 1.03 mg/dL 0.55-1.02 [facility] Comment on above: The validity of the calculated GFR & GFRAA in patients over 70 years has not been determined. Clinical correlation is essential. Serum or plasma urea nitroge n measurement (mass/volume)Ordered By: Mo Corea on 11-18-2022 Urea nitrogen [Mass/Vol] 14 mg/dL 7-18 [facility] Squamous epithelial cells de tection in urine sediment by light microscopyOrdered By: Mo Corea on 11-18-2022 Epithelial cells.squamous LM Ql (Urine sed) 0-5 SEEN /hpf 5-10 [facility] Thin prep Papanicolaou smear with manual screeningOrdered By: Mo Corea on 11-18-2022 Thin prep Papanicolaou smear with manual screening 15 U/L 15-37 [facility] Thin prep Papanicolaou smear with manual screening 2 5-15 [facility] Urine blood detectionOrdered By: Mo Corea on 11-18-2022 RBC Ql (U) Negative Negative [facility] RBC Ql (U) 0 SEEN /hpf 0-5 [facility] Urine clarityOrdered By: Rebecca Corea on 11-18-2022 Clarity (U) Sl. Cloudy Clear [facility] Urine color determinationOrd ered By: Mo Corea on 11-18-2022 Color (U) Yellow Yellow [facility] Urine glucose detectionOrder ed By: Mo Corea on 11-18-2022 Glucose Ql (U) Normal mg/dl Normal [facility] Urine leukocyte esterase det ection by dipstickOrdered By: Mo Corea on 11-18-2022 Leukocyte esterase Test strip Ql (U) 25 /ul Negative [facility] Urine pHOrdered By: Mo amado on 11-18-2022 pH (U) 7.0 [pH] 5.0 - 8.0 [facility] Urine sediment bacteria coun t by microscopy (number/high power field)Ordered By: Mo Corea on 11-18-2022 Bacteria LM.HPF (Urine sed) [#/Area] 0 /[HPF] None Seen [facility] Urine specific gravity measu rementOrdered By: Mo Corea on 11-18-2022 Specific gravity (U) [Rel density] 1.010 1.002-1.030 [facility] Urobilinogen Auto test strip Ql (U)Ordered By: Mo Corea on 11-18-2022 Urobilinogen Ql (U) Normal mg/dl Normal [facility] Absolute lymphocyte countOrd ered By: Sae Carballo on 11-15-2022 Lymphocytes Auto (Unsp spec) [#/Vol] 2.03 10*3/uL 0.83-4.51 [facility] Basophil percentageOrdered B y: Sae Carballo on 11-15-2022 Basophils/100 WBC (Bld) 0.5 % 0-1 [facility] Chloride [Moles/Vol] 107 mmol/L 98-107 [facility] Cholesterol [Mass/Vol] 164 mg/dL <200 [facility] Comment on above: <200 mg/dL Desirable 200-240 mg/dL Borderline >240 mg/dL High Risk Eosinophils/100 WBC (Bld) 3.5 % 0-5 [facility] Glucose [Mass/Vol] 124 mg/dL 74-106 [facility] Comment on above: Fasting Glucose resu lt from 100 to 125 mg/dL suggests IMPAIRED HOMEOSTASIS per A.D.A. criteria. Neutrophils (Bld) [#/Vol] 4.7 10*3/uL 2.0-7.7 [facility] Neutrophils/100 WBC (Bld) 60.3 % 47-70 [facility] Potassium [Moles/Vol] 4.1 mmol/L 3.5-5.1 [facility] Sodium [Moles/Vol] 139 mmol/L 136-145 [facility] Triglyceride [Mass/Vol] 133 mg/dL <199 [facility] Comment on above: The drugs N-Acetylcy steine and Metamizole may falsely depress this assay.Serum Triglycerides Reference Interval Normal <150 mg/dL Borderline high 150 - 199 mg/dL High 200 - 499 mg/dL Very High > or = 500 mg/dL WBC (Bld) [#/Vol] 7.8 10*3/uL 4.4-11.0 [facility] Blood erythrocytes count (nu mber/volume)Ordered By: Sae Carballo on 11-15-2022 RBC (Bld) [#/Vol] 4.32 10*6/uL 4.2-5.4 [facility] Blood hemoglobin measurement (mass/volume)Ordered By: Sae Carballo on 11-15-2022 Hemoglobin (Bld) [Mass/Vol] 12.9 g/dL 12.0-15.0 [facility] Blood lymphocytes/100 leukoc ytesOrdered By: Sae Carballo on 11-15-2022 Lymphocytes/100 WBC (Bld) 26.2 % 19-41 [facility] Blood monocytes/100 leukocyt esOrdered By: Sae Carballo on 11-15-2022 Monocytes/100 WBC (Bld) 9.4 % 0-10 [facility] Blood platelet mean volumeOr dered By: Sae Carballo on 11-15-2022 Platelet mean volume (Bld) [Entitic vol] 10.6 fL 6.2-12.0 [facility] Determination of erythrocyte mean corpuscular volume (MCV)Ordered By: Sae Carballo on 11-15-2022 MCV (RBC) [Entitic vol] 91.7 fL 81-99 [facility] Hematocrit Auto (Bld) [Volum e fraction]Ordered By: Sae Carballo on 11-15-2022 Hematocrit (Bld) [Volume fraction] 39.6 % 37-47 [facility] INR in Blood by Coagulation assayOrdered By: Sae Carballo on 11-15-2022 INR Coag (Bld) [Relative time] 2.0 {INR} [facility] Laboratory - Chemistry and C hemistry - challengeOrdered By: Sae Carballo on 11-15-2022 CO2 [Moles/Vol] 25.0 mmol/L 21.0-32.0 [facility] Urea nitrogen/Creatinine [Mass ratio] 15.8 mg/mg 10-20 [facility] Laboratory - CoagulationOrde red By: Sae Carballo on 11-15-2022 PT Coag (PPP) [Time] 23.0 s 11.7-14.9 [facility] Laboratory - Hematology and Cell countsOrdered By: Sae Carballo on 11-15-2022 Erythrocyte distribution width (RBC) [Entitic vol] 43.4 fL 35.1-43.9 [facility] Erythrocyte distribution width (RBC) [Ratio] 12.9 % 11.6-14.6 [facility] Immature granulocytes/100 WBC (Bld) 0.100 % 0.0-0.9 [facility] Comment on above: IG% - Immature Granu locytes (promyelocytes, myelocytes and metamyelocytes) > 1% indicates that a LEFT SHIFT is Present. MCH (RBC) [Entitic mass] 29.9 pg 27.0-32.0 [facility] Nucleated RBC/100 WBC (Bld) [Ratio] 0 % 0-5 [facility] MCHC Auto (RBC) [Mass/Vol]Or dered By: Sae Carballo on 11-15-2022 MCHC (RBC) [Mass/Vol] 32.6 g/dL 32-36 [facility] No Panel InformationOrdered By: Sae Carballo on 11-15-2022 Estimated Creatinine Clearance Calc 37.26 ml/min [facility] Estimated GFR (MDRD) Amer 78 mL/min >60 [facility] Comment on above: GFR Calc Estimated GFR (MDRD) Non-Af Amer 64 mL/min >60 [facility] Comment on above: Non- GFR Calc Platelets bldOrdered By: Ramos Carballo on 11-15-2022 Platelets (Bld) [#/Vol] 278 10*3/uL 150-450 [facility] Serum or plasma calcium viktoria urement (mass/volume)Ordered By: Sae Carballo on 11-15-2022 Calcium [Mass/Vol] 8.5 mg/dL 8.5-10.1 [facility] Serum or plasma cholesterol in HDL measurement (mass/volume)Ordered By: Sae Carballo on 11-15-2022 Cholesterol in HDL [Mass/Vol] 49 mg/dL >40 [facility] Comment on above: The drugs N-Acetylcy steine and Metamizole may falsely depress this assay. Reference Range HDL <40 mg/dL Low HDL Cholesterol HDL >or= 60 mg/dL High HDL Cholesterol Serum or plasma cholesterol in VLDL measurement (mass/volume)Ordered By: Sae Carballo on 11-15-2022 Cholesterol in VLDL [Mass/Vol] 27 mg/dL 5-40 [facility] Serum or plasma creatinine m easurement (mass/volume)Ordered By: Sae Carballo on 11-15-2022 Creatinine [Mass/Vol] 0.88 mg/dL 0.55-1.02 [facility] Comment on above: The validity of the calculated GFR & GFRAA in patients over 70 years has not been determined. Clinical correlation is essential. Serum or plasma low density lipoprotein (LDL) cholesterol measurement (mass/volume)Ordered By: Sae Carballo on 11-15-2022 Cholesterol in LDL [Mass/Vol] 88 mg/dL 0-130 [facility] Serum or plasma urea nitroge n measurement (mass/volume)Ordered By: Sae Carballo on 11-15-2022 Urea nitrogen [Mass/Vol] 14 mg/dL - [facility] Thin prep Papanicolaou smear with manual screeningOrdered By: Sae Carballo on 11-15-2022 Thin prep Papanicolaou smear with manual screening 7 - [facility] Absolute lymphocyte countOrd ered By: Neri Mtichell on 11-14-2022 Lymphocytes Auto (Unsp spec) [#/Vol] 2.35 10*3/uL 0.83-4.51 [facility] Basophil percentageOrdered B y: Neri Mitchell on 11-14-2022 Basophils/100 WBC (Bld) 0.6 % 0-1 [facility] Chloride [Moles/Vol] 104 mmol/L 98-107 [facility] Eosinophils/100 WBC (Bld) 2.4 % 0-5 [facility] Glucose [Mass/Vol] 135 mg/dL 74-106 [facility] Comment on above: Fasting Glucose resu lt greater than or equal to 126 mg/dL suggests DIABETES MELLITUS per A.D.A. criteria. Neutrophils (Bld) [#/Vol] 6.0 10*3/uL 2.0-7.7 [facility] Neutrophils/100 WBC (Bld) 64.0 % 47-70 [facility] Potassium [Moles/Vol] 4.0 mmol/L 3.5-5.1 [facility] Sodium [Moles/Vol] 138 mmol/L 136-145 [facility] WBC (Bld) [#/Vol] 9.4 10*3/uL 4.4-11.0 [facility] Blood erythrocytes count (nu mber/volume)Ordered By: Neri Mitchell on 11-14-2022 RBC (Bld) [#/Vol] 4.79 10*6/uL 4.2-5.4 [facility] Blood hemoglobin measurement (mass/volume)Ordered By: Neri Mitchell on 11-14-2022 Hemoglobin (Bld) [Mass/Vol] 14.3 g/dL 12.0-15.0 [facility] Blood lymphocytes/100 leukoc ytesOrdered By: Neri Mitchell on 11-14-2022 Lymphocytes/100 WBC (Bld) 24.9 % 19-41 [facility] Blood monocytes/100 leukocyt esOrdered By: Neri Mitchell on 11-14-2022 Monocytes/100 WBC (Bld) 7.8 % 0-10 [facility] Blood platelet mean volumeOr dered By: Neri Mitchell on 11-14-2022 Platelet mean volume (Bld) [Entitic vol] 10.6 fL 6.2-12.0 [facility] Determination of erythrocyte mean corpuscular volume (MCV)Ordered By: Neri Mitchell on 11-14-2022 MCV (RBC) [Entitic vol] 93.5 fL 81-99 [facility] Glucose Glucometer (dC) [M ass/Vol]Ordered By: Neri Mitchell on 11-14-2022 Glucose [Mass/Vol] 136 mg/dL 74-106 [facility] Comment on above: MANAGEMENT OF PATIEN T CARE PER NURSING PROTOCOL Hematocrit Auto (Bld) [Volum e fraction]Ordered By: Neri Mitchell on 11-14-2022 Hematocrit (Bld) [Volume fraction] 44.8 % 37-47 [facility] INR in Blood by Coagulation assayOrdered By: Neri Mitchell on 11-14-2022 INR Coag (Bld) [Relative time] 1.8 {INR} [facility] Laboratory - Chemistry and C hemistry - challengeOrdered By: Neri Mitchell on 11-14-2022 CO2 [Moles/Vol] 28.0 mmol/L 21.0-32.0 [facility] Urea nitrogen/Creatinine [Mass ratio] 12.3 mg/mg 10-20 [facility] - CoagulationOrde red By: Neri Mitchell on 11-14-2022 aPTT Coag (Bld) [Time] 43.3 s 24.1-36.2 [facility] PT Coag (PPP) [Time] 21.3 s 11.7-14.9 [facility] Laboratory - Hematology and Cell countsOrdered By: Neri Mitchell on 11-14-2022 Erythrocyte distribution width (RBC) [Entitic vol] 44.7 fL 35.1-43.9 [facility] Erythrocyte distribution width (RBC) [Ratio] 13.0 % 11.6-14.6 [facility] Immature granulocytes/100 WBC (Bld) 0.300 % 0.0-0.9 [facility] Comment on above: IG% - Immature Granu locytes (promyelocytes, myelocytes and metamyelocytes) > 1% indicates that a LEFT SHIFT is Present. MCH (RBC) [Entitic mass] 29.9 pg 27.0-32.0 [facility] Nucleated RBC/100 WBC (Bld) [Ratio] 0 % 0-5 [facility] MCHC Auto (RBC) [Mass/Vol]Or dered By: Neri Mitchell on 11-14-2022 MCHC (RBC) [Mass/Vol] 31.9 g/dL 32-36 [facility] No Panel InformationOrdered By: Neri Mitchell on 11-14-2022 Estimated Creatinine Clearance Calc 28.76 ml/min [facility] Estimated GFR (MDRD) Amer 58 mL/min >60 [facility] Comment on above: GFR Calc Estimated GFR (MDRD) Non-Af Amer 48 mL/min >60 [facility] Comment on above: Non- GFR Calc Troponin I High Sensitivity 10 pg/mL 3.0-54.0 [facility] Comment on above: Please Note: New Evon t Units and Gender Specific Reference Ranges. For more information see Policy Stat Procedure [facility] High Sensitivity Troponin (TNIH) and attachments. Platelets bldOrdered By: Prasad Mitchell on 11-14-2022 Platelets (Bld) [#/Vol] 313 10*3/uL 150-450 [facility] Serum or plasma calcium viktoria urement (mass/volume)Ordered By: Neri Mitchell on 11-14-2022 Calcium [Mass/Vol] 9.0 mg/dL 8.5-10.1 [facility] Serum or plasma creatinine m easurement (mass/volume)Ordered By: Neri Mitchell on 11-14-2022 Creatinine [Mass/Vol] 1.14 mg/dL 0.55-1.02 [facility] Comment on above: The validity of the calculated GFR & GFRAA in patients over 70 years has not been determined. Clinical correlation is essential. Serum or plasma urea nitroge n measurement (mass/volume)Ordered By: Neri Mitchell on 11-14-2022 Urea nitrogen [Mass/Vol] 14 mg/dL 7-18 [facility] Thin prep Papanicolaou smear with manual screeningOrdered By: Neri Mitchell on 11-14-2022 Thin prep Papanicolaou smear with manual screening 6 5-15 [facility] INR in Blood by Coagulation assayOrdered By: Dr. Juarez on 09-18-2022 INR Coag (Bld) [Relative time] 1.8 {INR} [facility] Laboratory - CoagulationOrde red By: Dr. Juarez on 09-18-2022 PT Coag (PPP) [Time] 20.9 s 11.7-14.9 [facility] No Panel InformationOrdered By: Anant Juarez on 09-18-2022 Free Lambda Light Chains, Quant 15.7 mg/L 5.7-26.3 [facility] Whole Blood Vitamin B1 Level 111.8 nmol/L 66.5-200.0 [facility] Comment on above: Performed at: [address] [id number] Director: Master Vee PhD, Phone: [phone] at: [facility] [address] [id number] Director: Brandon Wells MD, Phone: [phone] Serum immunoglobulin kappa l ight chains/immunoglobulin lambda light chains mass ratioOrdered By: Anant Juarez on 09-18-2022 Immunoglobulin light chains.kappa/Immunoglobul in light chains.lambda (S) [Mass ratio] 1.74 0.26-1.65 [facility] Serum or plasma folate measu rement (mass/volume)Ordered By: Dr. Juarez on 09-18-2022 Folate [Mass/Vol] 51.90 ng/mL 3.1-55.4 [facility] Comment on above: Slight Hemolysis, Re sult may be falsely increased. Serum or plasma immunoglobul in kappa light chains measurement (mass/volume)Ordered By: Anant Juarez on 09-18-2022 Immunoglobulin light chains.kappa [Mass/Vol] 27.3 mg/L 3.3-19.4 [facility] Culture, urineOrdered By: Slim Doran on 09-17-2022 Bacteria identified Cx Nom (U) Streptococcus agalactiae (B) [facility] INR in Blood by Coagulation assayOrdered By: Dr. Doran on 09-13-2022 INR Coag (Bld) [Relative time] 1.5 {INR} [facility] Laboratory - CoagulationOrde red By: Dr. Doran on 09-13-2022 PT Coag (PPP) [Time] 18.1 s 11.7-14.9 [facility] Absolute lymphocyte countOrd ered By: Dr. Barcenas on 09-08-2022 Lymphocytes Auto (Unsp spec) [#/Vol] 2.60 10*3/uL 0.83-4.51 [facility] Basophil percentageOrdered B y: Dr. Barcenas on 09-08-2022 Basophil percentage 0 SEEN /hpf 0-5 [facility] Basophils/100 WBC (Bld) 0.4 % 0-1 [facility] Bilirubin [Mass/Vol] 0.30 mg/dL 0.20-1.00 [facility] Comment on above: For patients on eltr ombopag therapy, use of Dimension [facility] TBIL is not recommended. Chloride [Moles/Vol] 103 mmol/L 98-107 [facility] Eosinophils/100 WBC (Bld) 2.3 % 0-5 [facility] Glucose [Mass/Vol] 78 mg/dL 74-106 [facility] Neutrophils (Bld) [#/Vol] 5.2 10*3/uL 2.0-7.7 [facility] Neutrophils/100 WBC (Bld) 57.4 % 47-70 [facility] Potassium [Moles/Vol] 3.8 mmol/L 3.5-5.1 [facility] Protein [Mass/Vol] 6.9 g/dL 6.4-8.2 [facility] Sodium [Moles/Vol] 139 mmol/L 136-145 [facility] WBC (Bld) [#/Vol] 9.1 10*3/uL 4.4-11.0 [facility] Bilirubin Test strip Ql (U)O rdered By: Dr. Barcenas on 09-08-2022 Bilirubin Ql (U) Negative Negative [facility] Blood erythrocytes count (nu mber/volume)Ordered By: Dr. Barcenas on 09-08-2022 RBC (Bld) [#/Vol] 4.48 10*6/uL 4.2-5.4 [facility] Blood hemoglobin measurement (mass/volume)Ordered By: Dr. Barcenas on 09-08-2022 Hemoglobin (Bld) [Mass/Vol] 13.4 g/dL 12.0-15.0 [facility] Blood lymphocytes/100 leukoc ytesOrdered By: Dr. Barcenas on 09-08-2022 Lymphocytes/100 WBC (Bld) 28.5 % 19-41 [facility] Blood monocytes/100 leukocyt esOrdered By: Dr. Barcenas on 09-08-2022 Monocytes/100 WBC (Bld) 11.1 % 0-10 [facility] Blood platelet mean volumeOr dered By: Dr. Barcenas on 09-08-2022 Platelet mean volume (Bld) [Entitic vol] 10.7 fL 6.2-12.0 [facility] Determination of erythrocyte mean corpuscular volume (MCV)Ordered By: Dr. Barcenas on 09-08-2022 MCV (RBC) [Entitic vol] 92.4 fL 81-99 [facility] Hematocrit Auto (Bld) [Volum e fraction]Ordered By: Dr. Barcenas on 09-08-2022 Hematocrit (Bld) [Volume fraction] 41.4 % 37-47 [facility] INR in Blood by Coagulation assayOrdered By: Dr. Barcenas on 09-08-2022 INR Coag (Bld) [Relative time] 1.0 {INR} [facility] Ketones Test strip Ql (U)Ord ered By: Dr. Barcenas on 09-08-2022 Ketones Ql (U) Negative Negative [facility] Laboratory - Chemistry and C hemistry - challengeOrdered By: Dr. Barcenas on 09-08-2022 ALP [Catalytic activity/Vol] 71 U/L 45-117 [facility] ALT [Catalytic activity/Vol] 9 U/L 13-56 [facility] CO2 [Moles/Vol] 30.0 mmol/L 21.0-32.0 [facility] Globulin (S) [Mass/Vol] 3.7 g/dL 2.2-4.2 [facility] Urea nitrogen/Creatinine [Mass ratio] 17.1 mg/mg 10-20 [facility] Laboratory - CoagulationOrde red By: Dr. Barcenas on 09-08-2022 PT Coag (PPP) [Time] 13.6 s 11.7-14.9 [facility] Laboratory - Hematology and Cell countsOrdered By: Dr. Barcenas on 09-08-2022 Erythrocyte distribution width (RBC) [Entitic vol] 44.8 fL 35.1-43.9 [facility] Erythrocyte distribution width (RBC) [Ratio] 13.2 % 11.6-14.6 [facility] Immature granulocytes/100 WBC (Bld) 0.300 % 0.0-0.9 [facility] Comment on above: IG% - Immature Granu locytes (promyelocytes, myelocytes and metamyelocytes) > 1% indicates that a LEFT SHIFT is Present. MCH (RBC) [Entitic mass] 29.9 pg 27.0-32.0 [facility] Nucleated RBC/100 WBC (Bld) [Ratio] 0 % 0-5 [facility] MCHC Auto (RBC) [Mass/Vol]Or dered By: Dr. Barcenas on 09-08-2022 MCHC (RBC) [Mass/Vol] 32.4 g/dL 32-36 [facility] Mucus LM Ql (Urine sed)Order ed By: Dr. Barcenas on 09-08-2022 Mucus Ql (Urine sed) 0 SEEN /hpf [facility] Nitrite Test strip Ql (U)Ord ered By: Dr. Barcenas on 09-08-2022 Nitrite Ql (U) Negative Negative [facility] No Panel InformationOrdered By: Dr. Barcenas on 09-08-2022 Estimated Creatinine Clearance Calc 31.23 ml/min [facility] Estimated GFR (MDRD) Amer 64 mL/min >60 [facility] Comment on above: GFR Calc Estimated GFR (MDRD) Non-Af Amer 53 mL/min >60 [facility] Comment on above: Non- GFR Calc Troponin I High Sensitivity 86 pg/mL 3.0-54.0 [facility] Comment on above: Please Note: New Evon t Units and Gender Specific Reference Ranges. For more information see Policy Stat Procedure [facility] High Sensitivity Troponin (TNIH) and attachments. Platelets bldOrdered By: Dr. Barcenas on 09-08-2022 Platelets (Bld) [#/Vol] 294 10*3/uL 150-450 [facility] Protein Test strip Ql (U)Ord ered By: Dr. Barcenas on 09-08-2022 Protein Ql (U) Negative Negative [facility] Serum or plasma albumin viktoria urement (mass/volume)Ordered By: Dr. Barcenas on 09-08-2022 Albumin [Mass/Vol] 3.2 g/dL 3.2-5.0 [facility] Serum or plasma albumin/glob ulin mass ratioOrdered By: Dr. Barcenas on 09-08-2022 Albumin/Globulin [Mass ratio] 0.9 {ratio} 0.9-2.4 [facility] Serum or plasma calcium viktoria urement (mass/volume)Ordered By: Dr. Barcenas on 09-08-2022 Calcium [Mass/Vol] 8.8 mg/dL 8.5-10.1 [facility] Serum or plasma creatinine m easurement (mass/volume)Ordered By: Dr. Barcenas on 09-08-2022 Creatinine [Mass/Vol] 1.05 mg/dL 0.55-1.02 [facility] Comment on above: The validity of the calculated GFR & GFRAA in patients over 70 years has not been determined. Clinical correlation is essential. Serum or plasma urea nitroge n measurement (mass/volume)Ordered By: Dr. Barcenas on 09-08-2022 Urea nitrogen [Mass/Vol] 18 mg/dL 7-18 [facility] Squamous epithelial cells de tection in urine sediment by light microscopyOrdered By: Dr. Barcenas on 09-08-2022 Epithelial cells.squamous LM Ql (Urine sed) 0-5 SEEN /hpf 5-10 [facility] Thin prep Papanicolaou smear with manual screeningOrdered By: Dr. Barcenas on 09-08-2022 Thin prep Papanicolaou smear with manual screening 9 U/L 15-37 [facility] Thin prep Papanicolaou smear with manual screening 6 5-15 [facility] Urine blood detectionOrdered By: Dr. Barcenas on 09-08-2022 RBC Ql (U) Negative Negative [facility] RBC Ql (U) 0 SEEN /hpf 0-5 [facility] Urine clarityOrdered By: Dr. Barcenas on 09-08-2022 Clarity (U) Clear Clear [facility] Urine color determinationOrd ered By: Dr. Barcenas on 09-08-2022 Color (U) Yellow Yellow [facility] Urine glucose detectionOrder ed By: Dr. Barcenas on 09-08-2022 Glucose Ql (U) Normal mg/dl Normal [facility] Urine leukocyte esterase det ection by dipstickOrdered By: Dr. Barcenas on 09-08-2022 Leukocyte esterase Test strip Ql (U) Negative Negative [facility] Urine pHOrdered By: Dr. Moody delgado on 09-08-2022 pH (U) 6.5 [pH] 5.0 - 8.0 [facility] Urine sediment bacteria coun t by microscopy (number/high power field)Ordered By: Dr. Barcenas on 09-08-2022 Bacteria LM.HPF (Urine sed) [#/Area] 0 /[HPF] None Seen [facility] Urine specific gravity measu rementOrdered By: Dr. Barcenas on 09-08-2022 Specific gravity (U) [Rel density] 1.010 1.002-1.030 [facility] Urobilinogen Auto test strip Ql (U)Ordered By: Dr. Barcenas on 09-08-2022 Urobilinogen Ql (U) Normal mg/dl Normal [facility] Absolute lymphocyte countOrd ered By: Dr. Doran on 09-05-2022 Lymphocytes Auto (Unsp spec) [#/Vol] 1.27 10*3/uL 0.83-4.51 [facility] Basophil percentageOrdered B y: Dr. Doran on 09-05-2022 Basophils/100 WBC (Bld) 0.4 % 0-1 [facility] Chloride [Moles/Vol] 106 mmol/L 98-107 [facility] Eosinophils/100 WBC (Bld) 1.0 % 0-5 [facility] Glucose [Mass/Vol] 202 mg/dL 74-106 [facility] Comment on above: Glucose result great er than or equal to 200 mg/dLsuggests DIABETES MELLITUS per A.D.A. criteria. Neutrophils (Bld) [#/Vol] 8.3 10*3/uL 2.0-7.7 [facility] Neutrophils/100 WBC (Bld) 79.7 % 47-70 [facility] Potassium [Moles/Vol] 3.7 mmol/L 3.5-5.1 [facility] Sodium [Moles/Vol] 139 mmol/L 136-145 [facility] WBC (Bld) [#/Vol] 10.4 10*3/uL 4.4-11.0 [facility] Blood erythrocytes count (nu mber/volume)Ordered By: Dr. Doran on 09-05-2022 RBC (Bld) [#/Vol] 4.72 10*6/uL 4.2-5.4 [facility] Blood hemoglobin measurement (mass/volume)Ordered By: Dr. Doran on 09-05-2022 Hemoglobin (Bld) [Mass/Vol] 14.1 g/dL 12.0-15.0 [facility] Blood lymphocytes/100 leukoc ytesOrdered By: Dr. Doran on 09-05-2022 Lymphocytes/100 WBC (Bld) 12.3 % 19-41 [facility] Blood monocytes/100 leukocyt esOrdered By: Dr. Doran on 09-05-2022 Monocytes/100 WBC (Bld) 6.3 % 0-10 [facility] [facility] Blood platelet mean volumeOr dered By: Dr. Doran on 09-05-2022 Platelet mean volume (Bld) [Entitic vol] 11.2 fL 6.2-12.0 [facility] Determination of erythrocyte mean corpuscular volume (MCV)Ordered By: Dr. Doran on 09-05-2022 MCV (RBC) [Entitic vol] 93.9 fL 81-99 [facility] Hematocrit Auto (Bld) [Volum e fraction]Ordered By: Dr. Doran on 09-05-2022 Hematocrit (Bld) [Volume fraction] 44.3 % 37-47 [facility] INR in Blood by Coagulation assayOrdered By: Dr. Doran on 09-05-2022 INR Coag (Bld) [Relative time] 1.1 {INR} [facility] Laboratory - Chemistry and C hemistry - challengeOrdered By: Dr. Doran on 09-05-2022 CO2 [Moles/Vol] 24.0 mmol/L 21.0-32.0 [facility] Urea nitrogen/Creatinine [Mass ratio] 18.3 mg/mg 10-20 [facility] Laboratory - CoagulationOrde red By: Dr. Doran on 09-05-2022 PT Coag (PPP) [Time] 13.8 s 11.7-14.9 [facility] Laboratory - Hematology and Cell countsOrdered By: Dr. Doran on 09-05-2022 Erythrocyte distribution width (RBC) [Entitic vol] 45.5 fL 35.1-43.9 [facility] Erythrocyte distribution width (RBC) [Ratio] 13.2 % 11.6-14.6 [facility] Immature granulocytes/100 WBC (Bld) 0.300 % 0.0-0.9 [facility] Comment on above: IG% - Immature Granu locytes (promyelocytes, myelocytes and metamyelocytes) > 1% indicates that a LEFT SHIFT is Present. MCH (RBC) [Entitic mass] 29.9 pg 27.0-32.0 [facility] Nucleated RBC/100 WBC (Bld) [Ratio] 0 % 0-5 [facility] MCHC Auto (RBC) [Mass/Vol]Or dered By: Dr. Doran on 09-05-2022 MCHC (RBC) [Mass/Vol] 31.8 g/dL 32-36 [facility] No Panel InformationOrdered By: Dr. Doran on 09-05-2022 Estimated GFR (MDRD) Amer 61 mL/min >60 [facility] Comment on above: GFR Calc Estimated GFR (MDRD) Non-Af Amer 50 mL/min >60 [facility] Comment on above: Non- GFR Calc Thyroid Stimulating Hormone (TSH) 2.84 uIU/mL 0.358-3.74 [facility] Platelets bldOrdered By: Dr. Doran on 09-05-2022 Platelets (Bld) [#/Vol] 311 10*3/uL 150-450 [facility] Serum or plasma calcium viktoria urement (mass/volume)Ordered By: Dr. Doran on 09-05-2022 Calcium [Mass/Vol] 8.8 mg/dL 8.5-10.1 [facility] Serum or plasma creatinine m easurement (mass/volume)Ordered By: Dr. Doran on 09-05-2022 Creatinine [Mass/Vol] 1.09 mg/dL 0.55-1.02 [facility] Comment on above: The validity of the calculated GFR & GFRAA in patients over 70 years has not been determined. Clinical correlation is essential. Serum or plasma urea nitroge n measurement (mass/volume)Ordered By: Dr. Doran on 09-05-2022 Urea nitrogen [Mass/Vol] 20 mg/dL 7-18 [facility] Thin prep Papanicolaou smear with manual screeningOrdered By: Dr. Doran on 09-05-2022 Thin prep Papanicolaou smear with manual screening 9 5-15 [facility] Absolute lymphocyte countOrd ered By: Dr. Doran on 08-08-2022 Lymphocytes Auto (Unsp spec) [#/Vol] 1.97 10*3/uL 0.83-4.51 [facility] Basophil percentageOrdered B y: Dr. Doran on 08-08-2022 Basophils/100 WBC (Bld) 0.5 % 0-1 [facility] Chloride [Moles/Vol] 105 mmol/L 98-107 [facility] Eosinophils/100 WBC (Bld) 3.2 % 0-5 [facility] Glucose [Mass/Vol] 147 mg/dL 74-106 [facility] Comment on above: Fasting Glucose resu lt greater than or equal to 126 mg/dL suggests DIABETES MELLITUS per A.D.A. criteria. Neutrophils (Bld) [#/Vol] 4.6 10*3/uL 2.0-7.7 [facility] Neutrophils/100 WBC (Bld) 60.9 % 47-70 [facility] Potassium [Moles/Vol] 4.9 mmol/L 3.5-5.1 [facility] Sodium [Moles/Vol] 140 mmol/L 136-145 [facility] WBC (Bld) [#/Vol] 7.5 10*3/uL 4.4-11.0 [facility] Blood erythrocytes count (nu mber/volume)Ordered By: Dr. Doran on 08-08-2022 RBC (Bld) [#/Vol] 4.73 10*6/uL 4.2-5.4 [facility] Blood hemoglobin measurement (mass/volume)Ordered By: Dr. Doran on 08-08-2022 Hemoglobin (Bld) [Mass/Vol] 14.0 g/dL 12.0-15.0 [facility] Blood lymphocytes/100 leukoc ytesOrdered By: Dr. Doran on 08-08-2022 Lymphocytes/100 WBC (Bld) 26.2 % 19-41 [facility] Blood monocytes/100 leukocyt esOrdered By: Dr. Doran on 08-08-2022 Monocytes/100 WBC (Bld) 8.8 % 0-10 [facility] Blood platelet mean volumeOr dered By: Dr. Doran on 08-08-2022 Platelet mean volume (Bld) [Entitic vol] 10.9 fL 6.2-12.0 [facility] Determination of erythrocyte mean corpuscular volume (MCV)Ordered By: Dr. Doran on 08-08-2022 MCV (RBC) [Entitic vol] 94.1 fL 81-99 [facility] Hematocrit Auto (Bld) [Volum e fraction]Ordered By: Dr. Doran on 08-08-2022 Hematocrit (Bld) [Volume fraction] 44.5 % 37-47 [facility] Laboratory - Chemistry and C hemistry - challengeOrdered By: Dr. Doran on 08-08-2022 CO2 [Moles/Vol] 29.0 mmol/L 21.0-32.0 [facility] Cobalamin (Vitamin B12) [Mass/Vol] 853 pg/mL 211-911 [facility] Urea nitrogen/Creatinine [Mass ratio] 18.3 mg/mg 10-20 [facility] Laboratory - Hematology and Cell countsOrdered By: Dr. Doran on 08-08-2022 Erythrocyte distribution width (RBC) [Entitic vol] 45.5 fL 35.1-43.9 [facility] Erythrocyte distribution width (RBC) [Ratio] 13.2 % 11.6-14.6 [facility] Immature granulocytes/100 WBC (Bld) 0.400 % 0.0-0.9 [facility] Comment on above: IG% - Immature Granu locytes (promyelocytes, myelocytes and metamyelocytes) > 1% indicates that a LEFT SHIFT is Present. MCH (RBC) [Entitic mass] 29.6 pg 27.0-32.0 [facility] Nucleated RBC/100 WBC (Bld) [Ratio] 0 % 0-5 [facility] MCHC Auto (RBC) [Mass/Vol]Or dered By: Dr. Doran on 08-08-2022 MCHC (RBC) [Mass/Vol] 31.5 g/dL 32-36 [facility] No Panel InformationOrdered By: Dr. Doran on 08-08-2022 Estimated GFR (MDRD) Amer 57 mL/min >60 [facility] Comment on above: GFR Calc Estimated GFR (MDRD) Non-Af Amer 47 mL/min >60 [facility] Comment on above: Non- GFR Calc Vitamin D 25-Hydroxy 35.5 ng/mL [facility] Comment on above: Vitamin D 25(OH) Sta tus Range Deficiency <20 ng/mL (50nmol/L) Insufficiency 20 - 30 ng/mL (50 - 75 nmol/L) Sufficiency 30 - 100 ng/mL (75 - 250 nmol/L) Toxicity >100 ng/mL (>250 nmol/L) Platelets bldOrdered By: Dr. Doran on 08-08-2022 Platelets (Bld) [#/Vol] 365 10*3/uL 150-450 [facility] Serum or plasma calcium viktoria urement (mass/volume)Ordered By: Dr. Doran on 08-08-2022 Calcium [Mass/Vol] 9.2 mg/dL 8.5-10.1 [facility] Serum or plasma creatinine m easurement (mass/volume)Ordered By: Dr. Doran on 08-08-2022 Creatinine [Mass/Vol] 1.15 mg/dL 0.55-1.02 [facility] Comment on above: The validity of the calculated GFR & GFRAA in patients over 70 years has not been determined. Clinical correlation is essential. Serum or plasma ferritin rich surement (mass/volume)Ordered By: Dr. Doran on 08-08-2022 Ferritin [Mass/Vol] 83 ng/mL 8-252 [facility] Serum or plasma urea nitroge n measurement (mass/volume)Ordered By: Dr. Doran on 08-08-2022 Urea nitrogen [Mass/Vol] 21 mg/dL 7-18 [facility] Thin prep Papanicolaou smear with manual screeningOrdered By: Dr. Doran on 08-08-2022 Thin prep Papanicolaou smear with manual screening 6 5-15 [facility] Absolute lymphocyte countOrd ered By: Dr. Doran on 06-26-2022 Lymphocytes Auto (Unsp spec) [#/Vol] 2.42 10*3/uL 0.83-4.51 [facility] Basophil percentageOrdered B y: Dr. Doran on 06-26-2022 Basophils/100 WBC (Bld) 0.5 % 0-1 [facility] Bilirubin [Mass/Vol] 0.40 mg/dL 0.20-1.00 [facility] Comment on above: For patients on eltr ombopag therapy, use of Dimension [facility] TBIL is not recommended. Chloride [Moles/Vol] 106 mmol/L 98-107 [facility] Cholesterol [Mass/Vol] 163 mg/dL <200 [facility] Comment on above: <200 mg/dL Desirable 200-240 mg/dL Borderline >240 mg/dL High Risk Eosinophils/100 WBC (Bld) 4.2 % 0-5 [facility] Glucose [Mass/Vol] 142 mg/dL 74-106 [facility] Comment on above: Fasting Glucose resu lt greater than or equal to 126 mg/dL suggests DIABETES MELLITUS per A.D.A. criteria. Neutrophils (Bld) [#/Vol] 3.9 10*3/uL 2.0-7.7 [facility] Neutrophils/100 WBC (Bld) 53.1 % 47-70 [facility] Potassium [Moles/Vol] 4.3 mmol/L 3.5-5.1 [facility] Protein [Mass/Vol] 6.9 g/dL 6.4-8.2 [facility] Sodium [Moles/Vol] 139 mmol/L 136-145 [facility] Triglyceride [Mass/Vol] 178 mg/dL <199 [facility] Comment on above: The drugs N-Acetylcy steine and Metamizole may falsely depress this assay.Serum Triglycerides Reference Interval Normal <150 mg/dL Borderline high 150 - 199 mg/dL High 200 - 499 mg/dL Very High > or = 500 mg/dL WBC (Bld) [#/Vol] 7.4 10*3/uL 4.4-11.0 [facility] Blood erythrocytes count (nu mber/volume)Ordered By: Dr. Doran on 06-26-2022 RBC (Bld) [#/Vol] 4.51 10*6/uL 4.2-5.4 [facility] Blood hemoglobin measurement (mass/volume)Ordered By: Dr. Doran on 06-26-2022 Hemoglobin (Bld) [Mass/Vol] 13.5 g/dL 12.0-15.0 [facility] Blood lymphocytes/100 leukoc ytesOrdered By: Dr. Doran on 06-26-2022 Lymphocytes/100 WBC (Bld) 32.9 % 19-41 [facility] Blood monocytes/100 leukocyt esOrdered By: Dr. Doran on 06-26-2022 Monocytes/100 WBC (Bld) 9.0 % 0-10 [facility] Blood platelet mean volumeOr dered By: Dr. Doran on 06-26-2022 Platelet mean volume (Bld) [Entitic vol] 10.2 fL 6.2-12.0 [facility] Determination of erythrocyte mean corpuscular volume (MCV)Ordered By: Dr. Doran on 06-26-2022 MCV (RBC) [Entitic vol] 92.5 fL 81-99 [facility] Hematocrit Auto (Bld) [Volum e fraction]Ordered By: Dr. Doran on 06-26-2022 Hematocrit (Bld) [Volume fraction] 41.7 % 37-47 [facility] Laboratory - Chemistry and C hemistry - challengeOrdered By: Dr. Doran on 06-26-2022 ALP [Catalytic activity/Vol] 69 U/L 45-117 [facility] ALT [Catalytic activity/Vol] 13 U/L 13-56 [facility] CO2 [Moles/Vol] 29.0 mmol/L 21.0-32.0 [facility] Globulin (S) [Mass/Vol] 3.7 g/dL 2.2-4.2 [facility] Urea nitrogen/Creatinine [Mass ratio] 18.0 mg/mg 10-20 [facility] Laboratory - Hematology and Cell countsOrdered By: Dr. Doran on 06-26-2022 Erythrocyte distribution width (RBC) [Entitic vol] 43.9 fL 35.1-43.9 [facility] Erythrocyte distribution width (RBC) [Ratio] 12.9 % 11.6-14.6 [facility] Immature granulocytes/100 WBC (Bld) 0.300 % 0.0-0.9 [facility] Comment on above: IG% - Immature Granu locytes (promyelocytes, myelocytes and metamyelocytes) > 1% indicates that a LEFT SHIFT is Present. MCH (RBC) [Entitic mass] 29.9 pg 27.0-32.0 [facility] Nucleated RBC/100 WBC (Bld) [Ratio] 0 % 0-5 [facility] MCHC Auto (RBC) [Mass/Vol]Or dered By: Dr. Doran on 06-26-2022 MCHC (RBC) [Mass/Vol] 32.4 g/dL 32-36 [facility] No Panel InformationOrdered By: Dr. Doran on 06-26-2022 Estimated GFR (MDRD) Amer 60 mL/min >60 [facility] Comment on above: GFR Calc Estimated GFR (MDRD) Non-Af Amer 49 mL/min >60 [facility] Comment on above: Non- GFR Calc Platelets bldOrdered By: Dr. Doran on 06-26-2022 Platelets (Bld) [#/Vol] 314 10*3/uL 150-450 [facility] Serum or plasma albumin viktoria urement (mass/volume)Ordered By: Dr. Doran on 06-26-2022 Albumin [Mass/Vol] 3.2 g/dL 3.2-5.0 [facility] Serum or plasma albumin/glob ulin mass ratioOrdered By: Dr. Doran on 06-26-2022 Albumin/Globulin [Mass ratio] 0.9 {ratio} 0.9-2.4 [facility] Serum or plasma calcium viktoria urement (mass/volume)Ordered By: Dr. Doran on 06-26-2022 Calcium [Mass/Vol] 8.8 mg/dL 8.5-10.1 [facility] Serum or plasma cholesterol in HDL measurement (mass/volume)Ordered By: Dr. Doran on 06-26-2022 Cholesterol in HDL [Mass/Vol] 47 mg/dL >40 [facility] Comment on above: The drugs N-Acetylcy steine and Metamizole may falsely depress this assay. Reference Range HDL <40 mg/dL Low HDL Cholesterol HDL >or= 60 mg/dL High HDL Cholesterol Serum or plasma cholesterol in VLDL measurement (mass/volume)Ordered By: Dr. Doran on 06-26-2022 Cholesterol in VLDL [Mass/Vol] 36 mg/dL 5-40 [facility] Serum or plasma creatinine m easurement (mass/volume)Ordered By: Dr. Doran on 06-26-2022 Creatinine [Mass/Vol] 1.11 mg/dL 0.55-1.02 [facility] Comment on above: The validity of the calculated GFR & GFRAA in patients over 70 years has not been determined. Clinical correlation is essential. Serum or plasma low density lipoprotein (LDL) cholesterol measurement (mass/volume)Ordered By: Dr. Doran on 06-26-2022 Cholesterol in LDL [Mass/Vol] 80 mg/dL 0-130 [facility] Serum or plasma urea nitroge n measurement (mass/volume)Ordered By: Dr. Doran on 06-26-2022 Urea nitrogen [Mass/Vol] 20 mg/dL 7-18 [facility] Thin prep Papanicolaou smear with manual screeningOrdered By: Dr. Doran on 06-26-2022 Thin prep Papanicolaou smear with manual screening 15 U/L 15-37 [facility] Thin prep Papanicolaou smear with manual screening 4 5-15 [facility] Absolute lymphocyte countOrd ered By: Reese Shankar on 02-11-2022 Lymphocytes Auto (Unsp spec) [#/Vol] 1.50 10*3/uL 0.83-4.51 [facility] Basophil percentageOrdered B y: Reese Shankar on 02-11-2022 Basophils/100 WBC (Bld) 0.4 % 0-1 [facility] Chloride [Moles/Vol] 102 mmol/L 98-107 [facility] Eosinophils/100 WBC (Bld) 1.7 % 0-5 [facility] Glucose [Mass/Vol] 153 mg/dL 74-106 [facility] Comment on above: Fasting Glucose resu lt greater than or equal to 126 mg/dL suggests DIABETES MELLITUS per A.D.A. criteria. Neutrophils (Bld) [#/Vol] 10.0 10*3/uL 2.0-7.7 [facility] Neutrophils/100 WBC (Bld) 79.1 % 47-70 [facility] Potassium [Moles/Vol] 3.9 mmol/L 3.5-5.1 [facility] Sodium [Moles/Vol] 138 mmol/L 136-145 [facility] WBC (Bld) [#/Vol] 12.7 10*3/uL 4.4-11.0 [facility] Blood erythrocytes count (nu mber/volume)Ordered By: Reese Shankar on 02-11-2022 RBC (Bld) [#/Vol] 4.24 10*6/uL 4.2-5.4 [facility] Blood hemoglobin measurement (mass/volume)Ordered By: Reese Shankar on 02-11-2022 Hemoglobin (Bld) [Mass/Vol] 12.8 g/dL 12.0-15.0 [facility] Blood lymphocytes/100 leukoc ytesOrdered By: Reese Shankar on 02-11-2022 Lymphocytes/100 WBC (Bld) 11.8 % 19-41 [facility] Blood monocytes/100 leukocyt esOrdered By: Reese Shankar on 02-11-2022 Monocytes/100 WBC (Bld) 6.7 % 0-10 [facility] Blood platelet mean volumeOr dered By: Reese Shankar on 02-11-2022 Platelet mean volume (Bld) [Entitic vol] 11.0 fL 6.2-12.0 [facility] Determination of erythrocyte mean corpuscular volume (MCV)Ordered By: Reese Shankar on 02-11-2022 MCV (RBC) [Entitic vol] 91.7 fL 81-99 [facility] Hematocrit Auto (Bld) [Volum e fraction]Ordered By: Reese Shankar on 02-11-2022 Hematocrit (Bld) [Volume fraction] 38.9 % 37-47 [facility] INR in Blood by Coagulation assayOrdered By: Reese Shankar on 02-11-2022 INR Coag (Bld) [Relative time] 2.7 {INR} [facility] Laboratory - Chemistry and C hemistry - challengeOrdered By: Reese Shankar on 02-11-2022 CO2 [Moles/Vol] 26.0 mmol/L 21.0-32.0 [facility] Magnesium [Mass/Vol] 2.2 mg/dL 1.6-2.6 [facility] Urea nitrogen/Creatinine [Mass ratio] 18.5 mg/mg 10-20 [facility] Laboratory - CoagulationOrde red By: Reese Shankar on 02-11-2022 PT Coag (PPP) [Time] 28.0 s 11.7-14.9 [facility] Laboratory - Hematology and Cell countsOrdered By: Reese Shankar on 02-11-2022 Erythrocyte distribution width (RBC) [Entitic vol] 43.5 fL 35.1-43.9 [facility] Erythrocyte distribution width (RBC) [Ratio] 12.9 % 11.6-14.6 [facility] Immature granulocytes/100 WBC (Bld) 0.300 % 0.0-0.9 [facility] Comment on above: IG% - Immature Granu locytes (promyelocytes, myelocytes and metamyelocytes) > 1% indicates that a LEFT SHIFT is Present. MCH (RBC) [Entitic mass] 30.2 pg 27.0-32.0 [facility] Nucleated RBC/100 WBC (Bld) [Ratio] 0 % 0-5 [facility] MCHC Auto (RBC) [Mass/Vol]Or dered By: Reese Shankar on 02-11-2022 MCHC (RBC) [Mass/Vol] 32.9 g/dL 32-36 [facility] No Panel InformationOrdered By: Reese Shankar on 02-11-2022 Estimated Creatinine Clearance Calc 19.31 ml/min [facility] Estimated GFR (MDRD) Amer 36 mL/min >60 [facility] Comment on above: GFR Calc Estimated GFR (MDRD) Non-Af Amer 30 mL/min >60 [facility] Comment on above: Non- GFR Calc Troponin I High Sensitivity 13 pg/mL 3.0-54.0 [facility] Comment on above: Please Note: New Evon t Units and Gender Specific Reference Ranges. For more information see Policy Stat Procedure [facility] High Sensitivity Troponin (TNIH) and attachments. Platelets bldOrdered By: Dontae Shankar on 02-11-2022 Platelets (Bld) [#/Vol] 286 10*3/uL 150-450 [facility] Serum or plasma calcium viktoria urement (mass/volume)Ordered By: Reese Shankar on 02-11-2022 Calcium [Mass/Vol] 9.1 mg/dL 8.5-10.1 [facility] Serum or plasma creatinine m easurement (mass/volume)Ordered By: Reese Shankar on 02-11-2022 Creatinine [Mass/Vol] 1.73 mg/dL 0.55-1.02 [facility] Comment on above: The validity of the calculated GFR & GFRAA in patients over 70 years has not been determined. Clinical correlation is essential. Serum or plasma urea nitroge n measurement (mass/volume)Ordered By: Reese Shankar on 02-11-2022 Urea nitrogen [Mass/Vol] 32 mg/dL 7-18 [facility] Thin prep Papanicolaou smear with manual screeningOrdered By: Reese Shankar on 02-11-2022 Thin prep Papanicolaou smear with manual screening 10 5-15 [facility] CNPNon 10-14-2019 JAROD Telephone (AGCARDPOLulú ) LISAEZRA ([id number]) 1935 F Date Time Provider Department 10/14/19 [...] artery stent placement- 2006 [Z95*11/14/2015 Atherosclerosis of hughes coronary artery of na*11/14/2015 Asymptomatic cholelithiasis [K80.20] [...] Encounter Status:Closed by ELVER ACOSTA on 10/14/19 [facility] Guido 10-12-2019 CNPTOUTREACH Patient Outreach ([facility]) EZRA GONZALEZ ([id number]) 1935 F Date Time Provider Department 10/12/19 SWATHI CRUZ (LEE) [facility] During your visit today, we recorded the following information about you: Swathi Cruz LPN, LPN 10/12/2019 10:48 AM Signed ED Follow Up: Patient discharged from [facility] ED on 10/11/2019 for Fall, rib fracture [...] Visit: Transition Of Care [4074] Cmt: ED [facility] 10/11/2019 (Pt. has new pcp) Reason For [...] artery stent placement- 2006 [Z95*11/14/2015 Atherosclerosis of hughes coronary artery of na*11/14/2015 Asymptomatic cholelithiasis [K80.20] [...] Status:Closed by SWATHI CRUZ LPN on 10/12/19 [facility] OBSOLETEon 10-12-2019 OBSOLETE Refill (AGMPC) LISAEZRA ([id number]) 1935 F Date Time Provider Department 10/12/19 [...] Visit date not found Patient Phone numbers: [phone] (home) Request is for script(s) to be [...] artery stent placement- 2006 [Z95*11/14/2015 Atherosclerosis of hughes coronary artery of na*11/14/2015 Asymptomatic cholelithiasis [K80.20] [...] Status:Closed by LYNN BENEDICT LPN on 11/11/19 [facility] PROGRESSon 10-12-2019 PROGRESS HNO ID: [id number] Author: Swathi Cruz LPN Service: ? Author Type: LICENSED NURSE Type: Progress Notes Filed: 10/12/2019 10:48 AM Note Text: ED Follow Up: Patient discharged from [facility] ED on 10/11/2019 for Fall, rib fracture Outreach # 1, Contact Made. Patient was called at this time. Patient verified by name and . Patient stated she has a new PCP Dr. Sada Doran who she will follow up with. Swathi Cruz LPN 10/12/2019 10:45 AM [facility] CNPMari 10-06-2019 JAROD Telephone (AGINTMAC) EZRA GONZALEZ ([id number]) 1935 F Date Time Provider Department 10/06/19 [...] Date: 12/30/16 +++Patient gets lab draw at [facility] in [place] [phone]+++ PT INR Date Value Ref Range Status [...] (HCC) [I48.91] Order(s):PROTHROMBIN TIME/PT [SQPT] Order #: [id number] Prescriptions as of 10/06/2019 Sig: METOPROLOL SUCCINATE [...] artery stent placement- 2006 [Z95*11/14/2015 Atherosclerosis of hughes coronary artery of na*11/14/2015 Asymptomatic cholelithiasis [K80.20] [...] Encounter Status:Closed by BHAKTI (PHARMACIST)ESTEFANIA on 10/06/19 [facility] Bao 09-22-2019 CNPN Telephone ([facility]) EZRA GONZALEZ ([id number]) 1935 F Date Time Provider Department 09/22/19 JO PEREZ [facility] During your visit today, we recorded the following information about you: Maryanne Gomez MA 09/22/2019 10:38 AM Signed Patient is aware that you are going to be leaving the practice. She states she recently moved down to [place] and wants to find a physician closer to her Is there anyone that you recommend Maryanne Gomez MA 09/22/2019 10:37 AM Jo Perez MD 09/22/2019 12:[address] [facility]er [facility] Alicia Park LPN 09/22/2019 1:21 [...] Fully Assessed Reason for Visit: Patient Question [2716] Cmt: Phys[facility] in [facility] Prescriptions as of 09/22/2019 Sig: METOPROLOL [...] artery stent placement- 2006 [Z95*11/14/2015 Atherosclerosis of hughes coronary artery of na*11/14/2015 Asymptomatic cholelithiasis [K80.20] [...] Encounter Status:Closed by ALICIA PARK on 09/22/19 [facility] CNPTOUTREACHon 09-22-2019 [facility] Patient Outreach ([facility]) EZRA GONZALEZ ([id number]) 1935 F Date Time Provider Department 09/22/19 MARYANNE GOMEZ) [facility] During your visit today, we recorded the following information about you: Maryanne Gomez MA 09/22/2019 10:34 AM Signed HIGH RISK CHRONIC DISEASE MONITORING - [facility] Provider Action/FYI: Patient doing well Contact made with patient: Yes Hi my name is Maryanne Gomez MA and I am calling from the [facility] on behalf of your PCP. I'm [...] to speak with a social work steam trap worker to help give you support for any [...] artery stent placement- 2006 [Z95*11/14/2015 Atherosclerosis of hughes coronary artery of na*11/14/2015 Asymptomatic cholelithiasis [K80.20] [...] Encounter Status:Closed by MARYANNE GOMEZ on 09/22/19 [facility] PROGRESSon 09-22-2019 PROGRESS HNO ID: [id number] Author: Maryanne Gomez Service: ? Author Type: Case Fitter Type: Progress Notes Filed: 09/22/2019 10:34 AM Note Text: HIGH RISK CHRONIC DISEASE MONITORING - [facility] Provider Action/FYI: Patient doing well Contact made with patient: Yes Hi my name is Maryanne Gomez MA and I am calling from the [facility] on behalf of your PCP. I'm [...] to speak with a social work steam trap worker to help give you support for any [...] MA 09/22/2019 10:33 AM Normal [facility] CNPTOUTREACHon 09-21-2019 [facility] Patient Outreach ([facility]) LISAEZRA ([id number]) 1935 F Date Time Provider Department 09/21/19 JO PEREZ [facility] During your visit today, we recorded the following information about you: Alicia Park LPN 09/21/2019 10:43 AM Signed HIGH RISK CHRONIC DISEASE MONITORING - [facility] Provider Action/FYI: Contact made with patient: No - Left 1st message - Hi my name is Alicia Park LPN and I am calling from the [facility] on behalf of your PCP, Jo [...] artery stent placement- 2006 [Z95*11/14/2015 Atherosclerosis of hughes coronary artery of na*11/14/2015 Asymptomatic cholelithiasis [K80.20] [...] Encounter Status:Closed by ALICIA PARK on 09/21/19 [facility] PROGRESSon 09-21-2019 PROGRESS HNO ID: [id number] Author: Alicia Bush) Vivian Service: ? Author Type: LICENSED NURSE Type: Progress Notes Filed: 09/21/2019 10:43 AM Note Text: HIGH RISK CHRONIC DISEASE MONITORING - [facility] Provider Action/FYI: Contact made with patient: No - Left 1st message - Hi my name is Alicia Park LPN and I am calling from the [facility] on behalf of your PCP, Jo [...] Track Pt Outreach. End outreach.) Outreach ended [facility] CNPMari 09-02-2019 [place] Telephone ([place]) EZRA GONZALEZ ([id number]) 1935 F Date Time Provider Department 09/02/19 [...] Date: 12/30/16 +++Patient gets lab draw at [facility] in [place] [phone]+++ PT INR Date Value Ref Range Status [...] have next INR drawn at [facility] in [place] next month. Order placed. [...] (HCC) [I48.91] Order(s):PROTHROMBIN TIME/PT [SQPT] Order #: [id number] PROTHROMBIN TIME/PT [SQPT] Order #: [id number] STANDING Prescriptions as of 09/02/2019 Sig: METOPROLOL [...] artery stent placement- 2006 [Z95*11/14/2015 Atherosclerosis of hughes coronary artery of na*11/14/2015 Asymptomatic cholelithiasis [K80.20] [...] Encounter Status:Closed by BHAKTI (PHARMACIST)ESTEFANIA on 09/03/19 [facility] CNPTOUTREACHon 08-12-2019 CNPTOUTREA Patient Outreach (AGMPC) EZRA GONZALEZ ([id number]) 1935 F Date Time Provider Department 08/12/19 MARYANNE GOMEZ) [facility] During your visit today, we recorded the following information about you: Maryanne Gomez MA 08/12/2019 9:39 AM Signed HIGH RISK CHRONIC DISEASE MONITORING - [facility] Provider Action/FYI: Left 2nd message, will add patient to schedule for a month Contact made with patient: No, Left 2nd message - Hi my name is Maryanne Gomez MA and I am calling from the [facility] on behalf of your PCP, Jo [...] artery stent placement- 2006 [Z95*11/14/2015 Atherosclerosis of hughes coronary artery of na*11/14/2015 Asymptomatic cholelithiasis [K80.20] [...] Encounter Status:Closed by MARYANNE GOMEZ on 08/12/19 [facility] PROGRESSon 08-12-2019 PROGRESS HNO ID: [id number] Author: Maryanne Perea) Miguel Service: ? Author Type: Case Fitter Type: Progress Notes Filed: 08/12/2019 9:39 AM Note Text: HIGH RISK CHRONIC DISEASE MONITORING - [facility] Provider Action/FYI: Left 2nd message, will add patient to schedule for a month Contact made with patient: No, Left 2nd message - Hi my name is Maryanne Gomez MA and I am calling from the [facility] on behalf of your PCP, Jo [...] Maryanne Gomez MA 08/12/2019 9:38 AM Normal [facility] CNPTOUTRDell 08-11-2019 [facility] Patient Outreach ([facility]) EZRA GONZALEZ ([id number]) 1935 F Date Time Provider Department 08/11/19 MARYANNE GOMEZ) [facility] During your visit today, we recorded the following information about you: Maryanne Gomez MA 08/11/2019 10:02 AM Signed HIGH RISK CHRONIC DISEASE MONITORING - [facility] Provider Action/FYI: Left message, will add to schedule for tomorrow Contact made with patient: No - Left 1st message - Hi my name is Maryanne Gomez MA and I am calling from the [facility] on behalf of your PCP, Jo [...] artery stent placement- 2006 [Z95*11/14/2015 Atherosclerosis of hughes coronary artery of na*11/14/2015 Asymptomatic cholelithiasis [K80.20] [...] Status:Closed by MARYANNE GOMEZ on 08/11/19 Normal [facility] PROGRESSon 08-11-2019 PROGRESS HNO ID: [id number] Author: Maryanne Gomez Service: ? Author Type: Case Fitter Type: Progress Notes Filed: 08/11/2019 10:02 AM Note Text: HIGH RISK CHRONIC DISEASE MONITORING - [facility] Provider Action/FYI: Left message, will add to schedule for tomorrow Contact made with patient: No - Left 1st message - Hi my name is Maryanne Gomez MA and I am calling from the [facility] on behalf of your PCP, Jo [...] MA 08/11/2019 10:01 AM Normal [facility] OBSOLETEon 08-05-2019 OBSOLETE Refill (AGCARDPOB) EZRA GONZALEZ ([id number]) 1935 F Date Time Provider Department 08/05/19 [...] artery stent placement- 2006 [Z95*11/14/2015 Atherosclerosis of hughes coronary artery of na*11/14/2015 Asymptomatic cholelithiasis [K80.20] [...] Encounter Status:Closed by LYNETTE OROURKE on 08/05/19 [facility] CNPTOUTREACHon 08-04-2019 [facility] Patient Outreach ([facility]) EZRA GONZALEZ ([id number]) 1935 F Date Time Provider Department 08/04/19 MARYANNE GOMEZ) [facility] During your visit today, we recorded the following information about you: Maryanne Gomez MA 08/04/2019 11:03 AM Signed HIGH RISK CHRONIC DISEASE MONITORING - [facility] Provider Action/FYI: Patient has no questions or concerns at this time Contact made with patient: Yes Hi my name is Maryanne Gomez MA and I am calling from the [facility] on behalf of your PCP. I'm [...] to speak with a social work steam trap worker to help give you support for any [...] artery stent placement- 2006 [Z95*11/14/2015 Atherosclerosis of hughes coronary artery of na*11/14/2015 Asymptomatic cholelithiasis [K80.20] [...] MARYANNE GOMEZ on 08/04/19 Normal [facility] PROGRESSon 08-04-2019 PROGRESS HNO ID: [id number] Author: Maryanne Gomez Service: ? Author Type: Case Fitter Type: Progress Notes Filed: 08/04/2019 11:03 AM Note Text: HIGH RISK CHRONIC DISEASE MONITORING - [facility] Provider Action/FYI: Patient has no questions or concerns at this time Contact made with patient: Yes Hi my name is Maryanne Gomez MA and I am calling from the [facility] on behalf of your PCP. I'm [...] to speak with a social work steam trap worker to help give you support for any [...] MA 08/04/2019 11:03 AM Normal [facility] OBSOLETEon 08-03-2019 OBSOLETE Refill (AGCARDPOB) EZRA GONZALEZ ([id number]) 1935 F Date Time Provider Department 08/03/19 [...] artery stent placement- 2006 [Z95*11/14/2015 Atherosclerosis of hughes coronary artery of na*11/14/2015 Asymptomatic cholelithiasis [K80.20] [...] Status:Closed by KATYA WELLS CNP on 08/03/19 [facility] CNPTOUTREACHon 07-28-2019 [facility] Patient Outreach ([facility]) EZRA GONZALEZ ([id number]) 1935 F Date Time Provider Department 07/28/19 MARYANNE GOMEZ) [facility] During your visit today, we recorded the following information about you: Maryanne Gomez MA 07/28/2019 3:18 PM Signed HIGH RISK CHRONIC DISEASE MONITORING - [facility] Provider Action/FYI: Patient wants to know if [...] MA and I am calling from the [facility] on behalf of your PCP. I'm [...] to speak with a social work steam trap worker to help give you support for any [...] Please report her afib episode to her wholesale diamond broker (you can just route this chart to [...] use of insulin (HCC) [E11.9] Order(s):HGB A1C [GQSXV8H] Order #: [id number] FUTURE LIPID PANEL BASIC [SQLIPB] Order #: [id number] FUTURE COMP METABOLIC PANEL [SQCMP] Order #: [id number] FUTURE ALBUMIN QUANT 24H UR [SQUALBQ] Order #: [id number] FUTURE Prescriptions as of 07/28/2019 Sig: SIMVASTATIN [...] artery stent placement- 2006 [Z95*11/14/2015 Atherosclerosis of [place]hes coronary artery of na*11/14/2015 Asymptomatic cholelithiasis [K80.20] [...] Encounter Status:Closed by JO PEREZ on 07/28/19 [facility] OBSOLETEon 07-28-2019 OBSOLETE Refill (AGCARDHWG) EZRA GONZALEZ ([id number]) 1935 F Date Time Provider Department 07/28/19 [...] artery stent placement- 2006 [Z95*11/14/2015 Atherosclerosis of [place] coronary artery of na*11/14/2015 Asymptomatic cholelithiasis [K80.20] [...] Status:Closed by ARCELIA LOCKETT CNP on 07/28/19 [facility] PROGRESSon 07-28-2019 PROGRESS HNO ID: [id number] Author: Maryanne Gomez Service: ? Author Type: Case Fitter Type: Progress Notes Filed: 07/28/2019 3:18 PM [...] necessary. Maryanne Gomez MA 07/28/2019 3:05 PM [facility] PROGRESS HNO ID: [id number] Author: Jo Perez Service: ? Author Type: Physician Type: Progress Notes Filed: 07/28/2019 3:18 PM Note Text: Please report her afib episode to her wholesale diamond broker (you can just route this chart to [...] get labs done prior to her visit [facility] PROGRESS HNO ID: [id number] Author: Maryanne Gomez Service: ? Author Type: Case Fitter Type: Progress Notes Filed: 07/28/2019 3:18 PM Note Text: HIGH RISK CHRONIC DISEASE MONITORING - [facility] Provider Action/FYI: Patient wants to know if [...] MA and I am calling from the [facility] on behalf of your PCP. I'm [...] to speak with a social work steam trap worker to help give you support for any [...] MA 07/28/2019 2:21 PM Normal [facility] OBSOLETEon 07-14-2019 OBSOLETE Refill (AGMPC) EZRA GONZALEZ ([id number]) 1935 F Date Time Provider Department 07/14/[address] [facility] visit today, we recorded the [...] Visit date not found Patient Phone numbers: [phone] (home) Request is for script(s) to be [...] artery stent placement- 2006 [Z95*11/14/2015 Atherosclerosis of [place] coronary artery of na*11/14/2015 Asymptomatic cholelithiasis [K80.20] [...] Encounter Status:Closed by JO PEREZ on 07/14/19 [facility] OBSOLETE Refill (AGCARDPOB) EZRA GONZALEZ ([id number]) 1935 F Date Time Provider Department 07/14/19 [...] artery stent placement- 2006 [Z95*11/14/2015 Atherosclerosis of [place] coronary artery of na*11/14/2015 Asymptomatic cholelithiasis [K80.20] [...] Status:Closed by RICKEY CHAVARRIA MD on 07/14/19 [facility] CNPN Telephone ([place]) EZRA GONZALEZ ([id number]) 1935 F Date Time Provider Department 07/12/19 [facility] During your visit today, we recorded the [...] Date: 12/30/16 +++Patient gets lab draw at [facility] in [place] [phone]+++ PT INR Date Value Ref Range Status [...] (HCC) [I48.91] Order(s):PROTHROMBIN TIME/PT [SQPT] Order #: [id number] Prescriptions as of 07/12/2019 Sig: LISINOPRIL 5 [...] artery stent placement- 2006 [Z95*11/14/2015 Atherosclerosis of [place] coronary artery of na*11/14/2015 Asymptomatic cholelithiasis [K80.20] [...] Encounter Status:Closed by BHAKTI (PHARMACIST)ESTEFANIA on 07/12/19 [facility] OBSOLETEon 07-05-2019 OBSOLETE Refill (AGC) LISAEZRA ([id number]) 1935 F Date Time Provider Department 07/05/19 [...] Patient next appointment: 07/28/2019 Patient Phone numbers: [phone] (home) Request is for script(s) to be [...] longer on backorder per Dr. Perez. Bernarda Pennwyn 07/13/2019 11:23 AM Allergies As of Date: [...] artery stent placement- 2006 [Z95*11/14/2015 Atherosclerosis of hughes coronary artery of na*11/14/2015 Asymptomatic cholelithiasis [K80.20] [...] Status:Closed by PATITO WILSON CNP on 07/05/19 [facility] OBSOLETEon 07-01-2019 OBSOLETE Refill (AGC) EZRA GONZALEZ ([id number]) 1935 F Date Time Provider Department 07/01/19 [...] Patient next appointment: 07/28/2019 Patient Phone numbers: [phone] (home) Request is for script(s) to be [...] artery stent placement- 2006 [Z95*11/14/2015 Atherosclerosis of [place] coronary artery of na*11/14/2015 Asymptomatic cholelithiasis [K80.20] [...] Encounter Status:Closed by JO PEREZ on 07/01/19 [facility] Bao 06-10-2019 CNPN Telephone ([facility] EZRA GONZALEZ ([id number]) 1935 F Date Time Provider Department 06/10/19 [facility] During your visit today, we recorded the [...] artery stent placement- 2006 [Z95*11/14/2015 Atherosclerosis of [place] coronary artery of na*11/14/2015 Asymptomatic cholelithiasis [K80.20] [...] Status:Closed by SWATHI CRUZ LPN on 06/10/19 [facility] CNPN Telephone (AGINTMAC) EZRA GONZALEZ ([id number]) 1935 F Date Time Provider Department 06/07/19 [...] Date: 12/30/16 +++Patient gets lab draw at [facility] in [place] [phone]+++ PT INR Date Value Ref Range Status [...] (HCC) [I48.91] Order(s):PROTHROMBIN TIME/PT [SQPT] Order #: [id number] Prescriptions as of 06/07/2019 Sig: COQ-10 ORAL [...] artery stent placement- 2006 [Z95*11/14/2015 Atherosclerosis of [place] coronary artery of na*11/14/2015 Asymptomatic cholelithiasis [K80.20] [...] Encounter Status:Closed by BHAKTI (PHARMACIST)ESTEFANIA on 06/07/19 [facility] 06-04-2019 CNPN Telephone ([place]) EZRA GONZALEZ ([id number]) 1935 F Date Time Provider Department 06/04/19 [...] artery stent placement- 2006 [Z95*11/14/2015 Atherosclerosis of hughes coronary artery of na*11/14/2015 Asymptomatic cholelithiasis [K80.20] [...] Encounter Status:Closed by BHAKTI (PHARMACIST)ESTEFANIA on 06/04/19 [facility] 05-13-2019 CNOV Office Visit (AGHWW1 ) EZRA GONZALEZ ([id number]) 1935 F Date Time Provider Department 05/13/19 4:00 PM CRUZ SANCHEZ AGHWW1 During your visit today, we recorded the following information about you: Respiration Weight Height 18/minute 82.6 kg 1.613 m Cruz Sanchez MD 05/13/2019 5:00 PM Signed HISTORY OF PRESENT ILLNESS: Ezra Gonzalez is an 83-year-old mafvk-kjid-zpwtjohw female who returns for follow-up right shoulder [...] associated with diabetes mellitus (HCC) - 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 (myocardial infarction) 2006 - On anticoagulant therapy - On long-term drug therapy - Osteoarthritis - Peripheral venous [...] R Shoulder CARDIOVASCULAR: Peripheral venous insufficiency, h/o WI, HTN, Coronary Arteriosclerosis, A-Fib, Cardiac Ablation MSK: [...] [Z98.890] Order(s):Large Joint Arthro/Inj: R subacromial bursa [PVF250] Order #: [id number] betamethasone acetate-betamethasone sodium phosphate 12 mg injection [...] artery stent placement- 2006 [Z95*11/14/2015 Atherosclerosis of hughes coronary artery of na*11/14/2015 Asymptomatic cholelithiasis [K80.20] [...] Status:Closed by CRUZ SANCHEZ MD on 05/13/19 [facility] PROGRESSon 05-13-2019 PROGRESS HNO ID: [id number] Author: Cruz Sanchez Service: ? 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 Cruz Sanchez MD [facility] CNOVon 04-27-2019 CN Office Visit (AGC) EZRA GONZALEZ ([id number]) 1935 F Date Time Provider Department 04/27/19 [...] coronary artery stent placement- 2006 Atherosclerosis of [place] Coronary Artery of [place] Heart Without Angina Pectoris Asymptomatic Cholelithiasis History [...] Podiatry 05/19/2015 End 05/19/15 Nirmal Bogdan Justo STUDENT SUPPORT COUNSELOR 07/07/2017 End 07/07/17 ; Mohan Álvarez Ophthalmology 07/07/2017 End 07/07/17 Rickey Duffy [facility] 09/30/2018 End 09/30/18 ; End of Live Planning discussed including patients advanced directive wishes: Yes I am willing to follow advanced directives. Mini-Cog Patient asked to remember the following three words: [place], [place] and Chair Visuospatial/Executiv e Functioning: Clock drawin/2 [...] No history of dysuria, frequency or incontinence CANVAS WORKER APPRENTICE: Negative for abnormal vaginal bleeding, abnormal vaginal [...] with supplements or by diet (goal of 7004-6076 mg/day - Discussed need and benefit for [...] arise. - Discussed diabetic education issues of long-term diabetic complications, hypoglycemic symptoms, hyperglycemic symptoms, diet, [...] prepared fairly simply. If you were a ohos-pcp-gumdodmo eater, focus on the meat more than [...] your kitchen up for success. Always have hou-ydrz-xjuwfrvt foods on hand ready to eat. Remove [...] unspecified type [R19.7] Order(s):ADMIN OF INFLUENZA VACCINE [[id number]] Order #: [id number]: 1 INFLUENZA SEASONAL HIGH DOSE AGE 65+ [79735HVH] Order #: [id number] metFORMIN (GLUCOPHAGE) 500 mg tabletTake 1 tablet by mouth daily with breakfast.Disp: Rfl: HGB A1C [AOYCL0B] Order #: [id number] FUTURE COMP METABOLIC PANEL [SQCMP] Order #: [id number] FUTURE Prescriptions as of 04/27/2019 Sig: COQ-10 [...] artery stent placement- 2006 [Z95*11/14/2015 Atherosclerosis of [place] coronary artery of na*11/14/2015 Asymptomatic cholelithiasis [K80.20] [...] prepared fairly simply. If you were a artz-cwy-urtfxdwd eater, focus on the meat more than [...] your kitchen up for success. Always have aqe-fdor-swhgaqzj foods on hand ready to eat. Remove [...] Encounter Status:Closed by JO PEREZ on 04/27/19 [facility] PROGRESSon 04-27-2019 PROGRESS HNO ID: [id number] Author: Jo Perez Service: ? Author Type: [...] coronary artery stent placement- 2006 Atherosclerosis of [place] Coronary Artery of [place] Heart Without Angina Pectoris Asymptomatic Cholelithiasis History [...] [place] Chiropractor 05/19/2015 End 05/19/15 ; Pattio Gonzalez Podiatry 05/19/2015 End 05/19/15 Nirmal Kemp STUDENT SUPPORT COUNSELOR 07/07/2017 End 07/07/17 ; Mohan Álvarez Ophthalmology 07/07/2017 End 07/07/17 Rickey Chavarria Cardiology 09/30/2018 End 09/30/18 ; End of Live Planning discussed including patients advanced directive wishes: Yes I am willing to follow advanced directives. Mini-Cog Patient asked to remember the following three words: [place], [place] and Chair Visuospatial/Executiv e Functioning: Clock drawin/2 [...] No history of dysuria, frequency or incontinence CANVAS WORKER APPRENTICE: Negative for abnormal vaginal bleeding, abnormal vaginal [...] with supplements or by diet (goal of 7949-2459 mg/day - Discussed need and benefit for [...] arise. - Discussed diabetic education issues of termite control service representative diabetic complications, hypoglycemic symptoms, hyperglycemic symptoms, diet, [...] Lipid panel [facility] Office Visit (AGHWW1 ) EZRA GONZALEZ ([id number]) 1935 F Date Time Provider Department 03/18/19 4:00 PM CRUZ SANCHEZ AGHWW1 During your visit today, we recorded the following information about you: Respiration Weight Height 17/minute 80.7 kg 1.651 m Cruz Sanchez MD 03/18/2019 7:00 PM Signed HISTORY OF PRESENT ILLNESS: Ezra Gonzalez is an 83-year-old btmvl-rkdq-kyzdsmrk female who returns for follow-up right shoulder [...] and strength with continued physical therapy in [place]. 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 Author Type: Physician Type: Progress Notes Filed: 03/18/2019 7:00 PM Note Text: HISTORY OF PRESENT ILLNESS: Ezra Gonzalez is an 83-year-old zlyif-ygpg-hqpmfald female who returns for follow-up right shoulder [...] and strength with continued physical therapy in [place]. 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 Cruz Sanchez MD [facility] OBSOLETEon 03-17-2019 OBSOLETE Refill ([facility]) EZRA GONZALEZ ([id number]) 1935 F Date Time Provider Department 03/17/19 VIPUL BUCHANAN ([facility]) [facility] During your visit today, we recorded the following information about you: Anne Marie Hobbs Reg 03/18/2019 7:40 AM Signed Pharmacy faxed requesting the following refill. Pending Prescriptions Disp Refills LISINOPRIL 5 MG TABLET 90 tablet 0 Sig: TAKE ONE TABLET BY MOUTH once DAILY SHAHEEN: Yes Last refill: 10/09/2018 Patient last appointment: 09/30/2018 Patient next appointment: Visit date not found Patient Phone numbers: [phone] (home) Request is for script(s) to be [...] artery stent placement- 2006 [Z95*11/14/2015 Atherosclerosis of [place] coronary artery of na*11/14/2015 Asymptomatic cholelithiasis [K80.20] [...] Encounter Status:Closed by JO PEREZ on 03/18/19 [facility]ON[facility] ([id number]) 1935 F Date Time Provider Department 03/17/19 JO PEREZ [facility] During your visit today, we recorded the following information about you: Anne Marie Hobbs Reg 03/18/2019 7:41 AM Signed Pharmacy faxed requesting the following refill. Pending Prescriptions Disp Refills RANITIDINE 150 MG TABLET 90 tablet 0 Sig: TAKE ONE TABLET BY MOUTH EVERY DAY SHAHEEN: Yes Last refill: 12/16/2018 Patient last appointment: 09/30/2018 Patient next appointment: 04/02/2019 Patient Phone numbers: [phone] (home) Request is for script(s) to be [...] artery stent placement- 2006 [Z95*11/14/2015 Atherosclerosis of [place] coronary artery of na*11/14/2015 Asymptomatic cholelithiasis [K80.20] [...] by JO PEREZ on 03/18/19 [facility] Office Visit (AGHWW1 ) EZRA GONZALEZ ([id number]) 1935 F Date Time Provider Department 02/04/19 1:30 PM [facility] During your visit today, we recorded the following information about you: Respiration Weight Height 17/minute 80.7 kg 1.676 m Cruz Sanchez MD 02/04/2019 4:40 PM Signed HISTORY OF PRESENT ILLNESS: Ezra Gonzalez was provided orthopedic evaluation regarding right shoulder complaints. 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 - On anticoagulant therapy - On termite control service representative drug therapy - Osteoarthritis - Peripheral venous [...] conditions CARDIOVASCULAR: A-Fib, Coronary Arteriosclerosis, HTN, Old [place], Peripheral Venous Inufficiency, MSK: Degenerative Joint Disease, [...] GENERAL 3V OR MORE AP/TRUE AP/OTHER RT [[id number]] Order #: [id number] CONSULT TO PHYSICAL THERAPY (AG) [[id number]] Order #: [id number]: 1 DRAIN/INJECT LARGE JOINT/BURSA [[id number]] Order #: [id number] [] betamethasone acetate-betamethasone sodium phosphate 12 mg [...] stent placement- 2006 [Z95*INVALID FOR* Atherosclerosis of [place] coronary artery of na*INVALID FOR* Asymptomatic cholelithiasis [...] Status:Closed by CRUZ SANCHEZ MD on 02/04/19 [facility] PROGRESSon 02-04-2019 PROGRESS HNO ID: [id number] Author: Cruz Sanchez Service: ? Author Type: Physician Type: Progress Notes Filed: 02/04/2019 4:40 PM Note Text: HISTORY OF PRESENT ILLNESS: Ezra Gonzalez was provided orthopedic evaluation regarding right shoulder complaints. 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 Cruz Sanchez MD [facility] OBSOLETEon 01-21-2019 OBSOLETE Refill (AGCARDPOB) EZRA GONZALEZ ([id number]) 1935 F Date Time Provider Department 01/21/19 [...] Myalgias Date Reviewed: 11/27/2018 Reviewed by: Vika [facility] Center[facility]ines[facility] Torres - Fully Assessed Reason for Visit: [...] stent placement- 2006 [Z95*INVALID FOR* Atherosclerosis of hughes coronary artery of na*INVALID FOR* Asymptomatic cholelithiasis [...] Status:Closed by RICKEY CHAVARRIA MD on 01/21/19 [facility] OBSOLETE Refill (MPC) EZRA GONZALEZ ([id number]) 1935 F Date Time Provider Department 01/21/[address] [facility] During your visit today, we recorded the following information about you: Anne Marie Hobbs Reg 01/21/2019 12:05 PM Signed Pharmacy faxed requesting the following refill. Pending Prescriptions Disp Refills FUROSEMIDE 20 MG TABLET 90 tablet 2 Sig: TAKE ONE TABLET BY MOUTH ONCE DAILY SHAHEEN: Yes Last refill: 01/05/2018 Patient last appointment: 09/30/2018 Patient next appointment: 04/02/2019 Patient Phone numbers: [phone] (home) Request is for script(s) to be [...] Myalgias Date Reviewed: 11/27/2018 Reviewed by: Vika ([facility]) Brian - Fully Assessed Reason for Visit: [...] stent placement- 2006 [Z95*INVALID FOR* Atherosclerosis of hughes coronary artery of na*INVALID FOR* Asymptomatic cholelithiasis [...] Encounter Status:Closed by JO PEREZ on 01/21/19 [facility] CNTHERAPYon 12-14-2018 CNTHERAPY [facility] LISAEZRA ([id number]) 1935 F Date Time Provider Department 12/14/18 11:00 AM ANOOP COLLAZO (JAZMYN) AKSTWP Date Time Provider Department Center 12/14/2018 11:00 AM [id number]-MHBSKCXANOOP COLLAZO*AKSTWCorby LONG Reason for Visit: Difficulty In [...] Myalgias Date Reviewed: 11/27/2018 Reviewed by: Vika [facility] Center[facility] Torres - Fully Assessed Prescriptions as of [...] Jazmyn Hinson, JAZMYN 12/14/2018 4:44 PM Signed [facility] OUTPATIENT AUDIOLOGY [facility] AUDIOLOGIC EVALUATION REPORT 12/14/2018 Page 1 of 3 Patient: Ezra Gonzalez : 1935 Referred by: Jo Perez (PCP: Yazmin) Referred for: Evaluation of suspected change in hearing, tinnitus, or balance. Referral documented: In an order in Epic: OTHER ORDERS: : CONSULT TO AUDIOLOGY FOR DIAGNOSTIC TESTING [9003] (Order [id number]) Patient's major complaints: Progressively increasing difficulty in [...] --Pure tone audiometry using insert earphones demonstrates zmhi-ok-wxqajxbvlu severe level sensorineural type hearing loss, worse [...] up w/ referring physician. Report routed via [employer] inbox to Dr. Perez on 12/14/2018 -Re-evaluation [...] Audiogram can be also be viewed in [employer] SmartForms:Audiology: Audiometry. OAE and tympanometry results can be viewed in [employer] Scanned Documents. RIGHT EAR Hearing Sensitivity: 250-500HZ: WNL; 750-2000Hz:mild; 3000-8000Hz: moderate-severe SNHL Word Recognition Score (order by difficulty 10 word list): Excellent (90%) at slt amplified loudness (fair at conversational loudness) Tympanometry: Type A : Normal ME function. Otoacoustic Emissions results: 750-3000Hz: WNL; 9249-1149: reduced; 8000Hz: absent. LEFT EAR Hearing Sensitivity: 250-500HZ: WNL; 750-3000Hz: moderate; 6000-8000Hz: severe SNHL Word Recognition Score (order by difficulty 10 word list): Excellent (90%) at amplified loudness (poor at conversational loudness) Tympanometry: Type A : Normal ME function. Otoacoustic Emissions results: 750-1000Hz: absent; 3634-7287: reduced; 6000-8000Hz: absent. William Hinson. Sand System Operator 12/14/2018 3:30 PM Ezra Gonzalez : [...] visit: Audiometry Letter Text Normal [facility] OBSOLETEon 12-14-2018 OBSOLETE Refill ([facility]) EZRA GONZALEZ ([id number]) 1935 F Date Time Provider Department 12/14/18 JO PEREZ [facility] During your visit today, we recorded the following information about you: Robert Diaz CMA 12/16/2018 1:00 PM Signed Patient called requesting the following refill. Pending Prescriptions Disp Refills RANITIDINE 150 MG TABLET 90 tablet 0 Sig: TAKE ONE TABLET BY MOUTH EVERY DAY SHAHEEN: Yes Last refill: 09/16/2018 Patient last appointment: 10/20/2018 Patient next appointment: 04/02/2019 Patient Phone numbers: [phone] (home) Request is for script(s) to be [...] Myalgias Date Reviewed: 11/27/2018 Reviewed by: Vika [facility]) Brian - Fully Assessed Reason for Visit: [...] stent placement- 2006 [Z95*INVALID FOR* Atherosclerosis of hughes coronary artery of na*INVALID FOR* Asymptomatic cholelithiasis [...] Encounter Status:Closed by JO PEREZ on 12/16/18 [facility] PROGRESSon 12-14-2018 PROGRESS HNO ID: [id number] Author: Anoop (Jazmyn) JAZMYN Collazo Service: ? Author Type: Sand System Operator Type: Progress Notes Filed: 12/14/2018 4:44 PM Note Text: [facility] OUTPATIENT AUDIOLOGY [facility] AUDIOLOGIC EVALUATION REPORT 12/14/2018 Page 1 of 3 Patient: Ezra Snell Lisa : 1935 Referred by: Jo Perez (PCP: Yazmin) Referred for: Evaluation of suspected change in hearing, tinnitus, or balance. Referral documented: In an order in [facility]: OTHER ORDERS: : CONSULT TO AUDIOLOGY FOR DIAGNOSTIC TESTING [9004] (Order [id number]) Patient's major complaints: Progressively increasing difficulty in [...] --Pure tone audiometry using insert earphones demonstrates hrho-by-lgoojmfrle severe level sensorineural type hearing loss, worse [...] up w/ referring physician. Report routed via [employer] inbox to Dr. Perez on 12/14/2018 -Re-evaluation [...] Audiogram can be also be viewed in [employer] Smart[employer]:Audiology: Audiometry. OAE and tympanometry results can be viewed in [facility] Scanned Documents. RIGHT EAR Hearing Sensitivity: 250-500HZ: WNL; 750-2000Hz:mild; 3000-8000Hz: moderate-severe SNHL Word Recognition Score (order by difficulty 10 word list): Excellent (90%) at slt amplified loudness (fair at conversational loudness) Tympanometry: Type A : Normal ME function. Otoacoustic Emissions results: 750-3000Hz: WNL; 0177-0738: reduced; 8000Hz: absent. LEFT EAR Hearing Sensitivity: 250-500HZ: WNL; 750-3000Hz: moderate; 6000-8000Hz: severe SNHL Word Recognition Score (order by difficulty 10 word list): Excellent (90%) at amplified loudness (poor at conversational loudness) Tympanometry: Type A : Normal ME function. Otoacoustic Emissions results: 750-1000Hz: absent; 1254-6410: reduced; 6000-8000Hz: absent. William Hinson. Sand System Operator 12/14/2018 3:30 PM Ezra Gonzalez : [...] + TM tympanic membrane Normal [facility] CNOVon 11-27-2018 CNOV Office Visit (AGCARDHWW) EZRA GONZALEZ ([id number]) 1935 F Date Time Provider Department 11/27/18 11:00 AM RICKEY CHAVARRIA AGCARDHWW During your visit today, we recorded the following information about you: Pulse Respiration Blood pressure Weight 66/minute 18/minute 124/70 80.7 kg Height 1.575 m Vika Torres CMA 11/27/2018 11:00 AM Signed Patient has no cardiac complaints today. Vika Chavarria MD 11/27/2018 11:24 AM Signed PRIMARY CARE PHYSICIAN: Jo Perez MD [address] [facility] [address] [place] [address] HISTORY OF PRESENT ILLNESS: Ms. Gonzalez is [...] again. 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 Ezra [...] of the time was spent in direct, enof-hz-nuqa, contact with the patient for management and counseling. 1. Essential hypertension - ICD9: 401.9, ICD10: I10 (primary diagnosis) 2. Obesity, Class I, BMI 30-34.9 - ICD9: 278.00, ICD10: E66.9 3. Mixed hyperlipidemia - ICD9: 272.2, ICD10: E78.2 4. Paroxysmal atrial fibrillation (HCC) - ICD9: 427.31, ICD10: I48.0 5. Chronic anticoagulation - ICD9: V58.61, ICD10: Z79.01 [address] M[address] [facility] Referring Provider: SELF [200] Allergies As of Date: 11/27/2018 Noted Allergy Reaction CODEINE 03/20/2015 16 - Unknown CRESTOR (ROSUVASTATIN) 03/20/2015 14 - Other: See Comments Comments: Myalgias DEMEROL (MEPERIDINE) 03/20/2015 8 - GI Upset LATEX 03/20/2015 2 - Rash LIPITOR (ATORVASTATIN) 03/20/2015 14 - Other: See Comments Comments: Myalgias Date Reviewed: 11/27/2018 Reviewed by: [facility]) Brian - Fully Assessed Reason for Visit: CARD Follow Up Annual [1232] Primary Visit Diagnosis:Essential hypertension [I10] Other Visit Diagnoses:Obesity, Class I, BMI 30-34.9 [E66.9] Mixed hyperlipidemia [E78.2] Paroxysmal atrial fibrillation (HCC) [I48.0] Chronic anticoagulation [Z79.01] Order(s):ECG B/O W INTERP (MED OFFICE) [ECG06] Order #: [id number] Prescriptions as of 11/27/2018 Sig: SIMVASTATIN 20 [...] stent placement- 2006 [Z95*INVALID FOR* Atherosclerosis of hughes coronary artery of na*INVALID FOR* Asymptomatic cholelithiasis [...] has no cardiac complaints today. Vika Torres [facility] Disposition: Return in about 1 year (around 11/28/2019). Follow-up and Disposition History Recorded Letter Text Encounter Status:Closed by RICKEY CHAVARRIA MD on 11/27/18 [facility] PROGRESSon 11-27-2018 PROGRESS HNO ID: [id number] Author: Rickey Chavarria Service: ? Author Type: Physician Type: Progress Notes Filed: 11/27/2018 11:24 AM Note Text: PRIMARY CARE PHYSICIAN: Jo Perez MD [address] [facility] [address] [place] [address] HISTORY OF PRESENT ILLNESS: Ms. Gonzalez is [...] again. 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 Ezra [...] of the time was spent in direct, eayb-hp-kncv, contact with the patient for management and counseling. 1. Essential hypertension - ICD9: 401.9, ICD10: I10 (primary diagnosis) 2. Obesity, Class I, BMI 30-34.9 - ICD9: 278.00, ICD10: E66.9 3. Mixed hyperlipidemia - ICD9: 272.2, ICD10: E78.2 4. Paroxysmal atrial fibrillation (HCC) - ICD9: 427.31, ICD10: I48.0 5. Chronic anticoagulation - ICD9: V58.61, ICD10: Z79.[address] [facility] Normal [facility] BONE DENSITY STUDY BY XRAY 7 7080on 07-15-2017 BONE DENSITY STUDY BY XRAY [id number] Performed at [facility] APPROVED BY: Kemar Adams MD EXAMINATION: BONE MINERAL DENSITOMETRY (DEXA SCAN) EXAM DATE: 07/15/2017 09:43 CLINICAL INDICATION: 82-year-old postmenopausal female , follow-up osteoporosis screening. COMPARISON: DEXA scan 10/06/2013. DXA HWW-Evercam v.13.4 examination is performed on the lumbar [...] is a trademark of the [employer]'s [facility], a WHO Collaborating [place]. This applies to men over 50 and [...] high risk for accelerated bone loss). Normal [facility] MAMMOGRAM SCREENING WITH CAD IF PERFORMEDon 06-27-2017 MAMMOGRAM SCREENING WITH CAD IF PERFORMED Performed at [facility] APPROVED BY: Lucas Garrido MD #[id number] - MAMMOGRAM SCREENING WITH CAD IF PERFORMEDBILATERAL DIGITAL SCREENING MAMMOGRAM WITH CAD WITH MEDIOLATERAL OBLIQUE CRANIOCAUDAL: 06/27/2017CLINICAL: Routine screening mammogram. Patient reports no breast problems. Comparison is made to exams dated: 07/22/2016 mammogram - [facility], 06/26/2016 mammogram, 06/09/2015 mammogram, and 04/01/2014 mammogram - [facility]. There are scattered fibroglandular elements in both [...] notified of the results. Lucas myers/penrad:06/27/2017 11:38:04 Professional Engineer: Loan Summers)(M), [facility] sent: Normal Birad 1 or 2 Mammogram BI-RADS: 1 Negative Normal [facility] Otheron 02-03-2015 CONVERTED CLINICAL HISTORY OPERATIVE PROCEDURE: Colonoscopy CLINICAL INFORMATION: Screening [facility] CONVERTED ELECTRONIC SIGNATURE MO PATRICK M.D., PATHOLOGIST (Electronic signature on file) Final Signed Out: 02/03/2015 12:44 [facility] CONVERTED FINAL DIAGNOSIS FINAL DIAGNOSI S: A) COLON, ASCENDING, BIOPSIES - FRAGMENTS OF TUBULAR ADENOMA. B) COLON, RANDOM BIOPSIES - NO PATHOLOGIC ABNORMALITIES. [facility] CONVERTED GROSS DESCRIPTION GROSS DESCRIPTION: [...] totally submitted in cassette B x 3. SMS:[facility] CONVERTED ORDERING PROVIDER Ordering Provider: SHI LESTER [facility] Otheron 04-19-2010 CONVERTED ELECTRONIC SIGNATURE RAVINDER HAN M.D., PATHOLOGIST (Electronic signature on file) Final Signed Out: 04/19/2010 14:33 [facility] CONVERTED FINAL DIAGNOSIS FINAL DIAGNOSI S: RIGHT SHOULDER, EXCISION - BONE AND ATTACHED CARTILAGE WITH DEGENERATIVE CHANGES. SYNOVIUM WITH NONSPECIFIC REACTIVE CHANGES AND FOCAL MILD CHRONIC INFLAMMATION. SPECIMEN: SHOULDER [facility] CONVERTED GROSS DESCRIPTION GROSS DESCRIPTION: Rt shoulder tissue The container is labeled right shoulder tissue. Received are portions of pink-montague soft tissue and red-montague bone measuring 3 x 3 x 1 cm in aggregate. Sample of soft tissue is submitted in cassette 1, sample of bone is submitted in cassette 2 following decal. SMS/lrs MICROSCOPIC DESCRIPTION: Slides reviewed. 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 SPECIMEN: FEMORAL HEAD [facility] CONVERTED GROSS DESCRIPTION GROSS DESCRIPTION: [...] decal. SMS:ATP:hlm MICROSCOPIC DESCRIPTION: Slides reviewed. SDS/gpl [facility] CONVERTED ORDERING PROVIDER Ordering Provider: CLOTILDE DOSS [facility] Thyroidon 08-02-2009 TSH Qn KVNG TYLER M.D., PATHOLOGIST (Electronic signature on file) Final Signed Out: 08/02/2009 14:47 [facility] Cardiacon 05-11-2001 Cholesterol [Mass/Vol] Ordering Provider : SAE FLANAGAN [facility] Otheron 05-11-2001 CONVERTED ELECTRONIC SIGNATURE MICHAEL HAWTHORNE M.D., PATHOLOGIST (Electronic signature on file) Final Signed Out: 05/11/2001 11:39 [facility] CONVERTED FINAL DIAGNOSIS TISSUE, REMOVE D AT RELEASE OF RIGHT RING FINGER - FIBROCOLLAGENOUS TISSUE WITH FOCAL FIBROBLASTIC REACTION AND FOCAL MIXOID CHANGE. ATTACHED SMALL AMOUNT OF TISSUE CONSISTENT WITH SYNOVIUM. [facility] Vital Signs Date Time Vital Sign Value Performing Clinician Facility 09-13-2024 14:00-0400 Body height 160.[address] Alexandra Hagen MD Work Phone: [facility] 09-13-2024 14:00-0400 Body mass index (BMI) [Ratio] 30.7 kg/m2 Dr. Alexandra Hagen MD Work Phone: [facility] 09-13-2024 14:00-0400 Body temperature 92.6 [degF] Dr. Alexandra Hagen MD Work Phone: 0(630)103-111195 [address] 09-13-2024 14:00-0400 Body weight 78.[address] Alexandra Hagen MD Work Phone: 9(773)875-892921 [place] [address] 09-13-2024 14:00-0400 Diastolic blood pressure 79 mm[Hg] Dr. Alexandra Hagen MD Work Phone: 5(366)121-824221 [place] [address] 09-13-2024 14:00-0400 Heart rate 83 /min Dr. Alexandra Hagen MD Work Phone: 7(674)711-537995 [address] 09-13-2024 14:00-0400 Respiratory rate 17 /min Dr. Alexandra Hagen MD Work Phone: [facility] 09-13-2024 14:00-0400 SaO2% (BldA) [Mass fraction] 97 % Dr. Alexandra Hagen MD Work Phone: [facility] 09-13-2024 14:00-0400 Systolic blood pressure 126 mm[Hg] Dr. Alexandra Hagen MD Work Phone: [facility] 09-11-2024 13:55-0400 Body mass index (BMI) [Ratio] 30.3 kg/m2 Dr. Alexandra Hagen MD Work Phone: [facility] 09-11-2024 09:09-0400 Body temperature 97.8 [degF] Dr. Alexandra Hagen MD Work Phone: [facility] 09-11-2024 09:09-0400 Diastolic blood pressure 85 mm[Hg] Dr. Alexandra Hagen MD Work Phone: [facility] 09-11-2024 09:09-0400 Heart rate 84 /min Dr. Alexandra Hagen MD Work Phone: [facility] 09-11-2024 09:09-0400 Respiratory rate 18 /min Dr. Alexandra Hagen MD Work Phone: [facility] 09-11-2024 09:09-0400 SaO2% (BldA) [Mass fraction] 98 % Dr. Alexandra Hagen MD Work Phone: 9(190)854-812921 [place] [address] 09-11-2024 09:09-0400 Systolic blood pressure 174 mm[Hg] Dr. Alexandra Hagen MD Work Phone: 3(690)322-507595 [address] 09-10-2024 17:17-0400 Body height 160.[address] Alexandra Hagen MD Work Phone: 1(227)306-802921 [place] [address] 09-10-2024 17:17-0400 Body weight 77.[address] Alexandra Hagen MD Work Phone: 7(599)715-929495 [address] 09-10-2024 16:30-0400 Diastolic blood pressure 73 mm[Hg] Dr. Alexandra Hagen MD Work Phone: [facility] 09-10-2024 16:30-0400 Heart rate 79 /min Dr. Alexandra Hagen MD Work Phone: 3(047)909-600721 [place] [address] 09-10-2024 16:30-0400 Respiratory rate 20 /min Dr. Alexandra Hagen MD Work Phone: [facility] 09-10-2024 16:30-0400 SaO2% (BldA) [Mass fraction] 93 % Dr. Alexandra Hagen MD Work Phone: [facility] 09-10-2024 16:30-0400 Systolic blood pressure 118 mm[Hg] Dr. Alexandra Hagen MD Work Phone: [facility] 09-10-2024 16:07-0400 Body temperature 98.3 [degF] Dr. Alexandra Hagen MD Work Phone: 4(167)835-014010 [place] [address] 09-10-2024 14:19-0400 Body height 160.[address] Alexandra Hagen MD Work Phone: 8(355)331-865310 [place] [address] 09-10-2024 14:19-0400 Body mass index (BMI) [Ratio] 26.5 kg/m2 Dr. Alexandra Hagen MD Work Phone: 3(873)920-755710 [place] [address] 09-10-2024 14:19-0400 Body weight 68.[address] Alexandra Hagen MD Work Phone: 2(218)996-506110 [place] [address] 09-08-2024 15:30-0400 Heart rate 64 /min Dr. Alexandra Hagen MD Work Phone: 7(185)389-864510 [place] [address] 09-08-2024 15:30-0400 Respiratory rate 23 /min Dr. Alexandra Hagen MD Work Phone: 3(991)906-771910 [place] [address] 09-08-2024 15:30-0400 SaO2% (BldA) [Mass fraction] 97 % Dr. Alexandra Hagen MD Work Phone: 6(004)828-208210 [place] [address] 09-08-2024 12:22-0400 Body height 160.[address] Alexandra Hagen MD Work Phone: 8(014)453-341010 [place] [address] 09-08-2024 12:22-0400 Body mass index (BMI) [Ratio] 33.5 kg/m2 Dr. Alexandra Hagen MD Work Phone: 1(988)953-433810 [place] [address] 09-08-2024 12:22-0400 Body temperature 98 [degF] Dr. Alexandra Hagen MD Work Phone: 8(670)431-784610 [place] [address] 09-08-2024 12:22-0400 Body weight 85.[address] Alexandra Hagen MD Work Phone: 9(507)542-261210 [place] [address] 09-08-2024 12:22-0400 Diastolic blood pressure 70 mm[Hg] Dr. Alexandra Hagen MD Work Phone: 6(935)401-718510 [place] [address] 09-08-2024 12:22-0400 Systolic blood pressure 131 mm[Hg] Dr. Alexandra Hagen MD Work Phone: 9(566)400-544721 [place] [address] 07-01-2024 10:38-0400 Body height 160.[address] Alexandra Hagen MD Work Phone: 1(261)934-242410 [place] [address] 07-01-2024 10:38-0400 Body mass index (BMI) [Ratio] 30.8 kg/m2 Dr. Alexandra Hagen MD Work Phone: 5(692)937-553810 [place] [address] 07-01-2024 10:38-0400 Body weight 78.[address] Alexandra Hagen MD Work Phone: 0(854)543-862310 [place] [address] 07-01-2024 10:38-0400 Diastolic blood pressure 85 mm[Hg] Dr. Alexandra Hagen MD Work Phone: 9(044)204-883110 [place] [address] 07-01-2024 10:38-0400 Heart rate 60 /min Dr. Alexandra Hagen MD Work Phone: 0(349)748-198910 [place] [address] 07-01-2024 10:38-0400 Respiratory rate 16 /min Dr. Alexandra Hagen MD Work Phone: 6(913)632-498010 [place] [address] 07-01-2024 10:38-0400 Systolic blood pressure 184 mm[Hg] Dr. Alexandra Hagen MD Work Phone: 4(505)052-737110 [place] [address] 05-10-2024 14:35-0500 Body height 160.[address] Alexandra Hagen MD Work Phone: 4(849)201-787810 [place] [address] 05-10-2024 14:35-0500 Body mass index (BMI) [Ratio] 30.9 kg/m2 Dr. Alexandra Hagen MD Work Phone: 8(924)565-026010 [place] [address] 05-10-2024 14:35-0500 Body temperature 97.8 [degF] Dr. Alexandra Hagen MD Work Phone: 3(103)274-043810 [place] [address] 05-10-2024 14:35-0500 Body weight 79.[address] Alexandra Hagen MD Work Phone: 1(474)218-312510 [place] [address] 05-10-2024 14:35-0500 Diastolic blood pressure 86 mm[Hg] Dr. Alexandra Hagen MD Work Phone: [facility] 05-10-2024 14:35-0500 Heart rate 75 /min Dr. Alexandra Hagen MD Work Phone: [facility] 05-10-2024 14:35-0500 Respiratory rate 16 /min Dr. Alexandra Hagen MD Work Phone: [facility] 05-10-2024 14:35-0500 SaO2% (BldA) [Mass fraction] 94 % Dr. Alexandra Hgaen MD Work Phone: [facility] 05-10-2024 14:35-0500 Systolic blood pressure 140 mm[Hg] Dr. Alxeandra Hagen MD Work Phone: [facility] 06-20-2023 11:10-0400 Diastolic blood pressure 92 mm[Hg] Sae Conde MD Work Phone: [facility] 06-20-2023 11:10-0400 Heart rate 88 /min Sae Conde MD Work Phone: [facility] 06-20-2023 11:10-0400 Systolic blood pressure 173 mm[Hg] Sae Conde MD Work Phone: [facility] 06-20-2023 05:34-0400 Body temperature 97.39 [degF] Sae Conde MD Work Phone: [facility] 06-20-2023 05:34-0400 Respiratory rate 20 /min Sae Conde MD Work Phone: [facility] 06-20-2023 05:34-0400 SaO2% (BldA) [Mass fraction] 95 % Sae Conde MD Work Phone: [facility] 06-17-2023 18:30-0400 Body height 160 cm Sae Conde MD Work Phone: [facility] 06-17-2023 18:30-0400 Body mass index (BMI) [Ratio] 30.83 kg/m2 Sae Conde MD Work Phone: [facility] 06-17-2023 18:30-0400 Body weight 78.93 kg Sae Conde MD Work Phone: [facility] 06-16-2023 11:02-0400 Body temperature 96.4 [degF] Dr. Rosemary Doran Work Phone: [facility] 06-16-2023 11:02-0400 Diastolic blood pressure 84 mm[Hg] Dr. Rosemary Doran Work Phone: [facility] 06-16-2023 11:02-0400 Heart rate 72 /min Dr. Rosemary Doran Work Phone: [facility] 06-16-2023 11:02-0400 Respiratory rate 16 /min Dr. Rosemary Doran Work Phone: [facility] 06-16-2023 11:02-0400 SaO2% (BldA) [Mass fraction] 96 % Dr. Rosemary Doran Work Phone: [facility] 06-16-2023 11:02-0400 Systolic blood pressure 157 mm[Hg] Dr. Rosemary Doran Work Phone: [facility] 06-16-2023 08:33-0400 Body height 160.[address] Rosemary Doran Work Phone: [facility] 06-16-2023 08:33-0400 Body mass index (BMI) [Ratio] 33.1 kg/m2 Dr. Rosemary Doran Work Phone: [facility] 06-16-2023 08:33-0400 Body weight 84.[address] Rosemary Doran Work Phone: [facility] 05-19-2023 11:21-0500 Body height 160.[address] Rosemary Doran Work Phone: [facility] 05-19-2023 11:21-0500 Body mass index (BMI) [Ratio] 31.6 kg/m2 Dr. Rosemary Doran Work Phone: [facility] 05-19-2023 11:21-0500 Body temperature 97.8 [degF] Dr. Rosemary Doran Work Phone: [facility] 05-19-2023 11:21-0500 Body weight 81.[address] Rosemary Doran Work Phone: [facility] 05-19-2023 11:21-0500 Diastolic blood pressure 90 mm[Hg] Dr. Rosemary Doran Work Phone: [facility] 05-19-2023 11:21-0500 Heart rate 88 /min Dr. Rosemary Doran Work Phone: [facility] 05-19-2023 11:21-0500 Respiratory rate 17 /min Dr. Rosemary Doran Work Phone: [facility] 05-19-2023 11:21-0500 SaO2% (BldA) [Mass fraction] 98 % Dr. Rosemary Doran Work Phone: [facility] 05-19-2023 11:21-0500 Systolic blood pressure 152 mm[Hg] Dr. Rosemary Doran Work Phone: [facility] 05-15-2023 09:01-0500 Body mass index (BMI) [Ratio] 31.6 kg/m2 Dr. Rosemary Doran Work Phone: [facility] 05-15-2023 09:01-0500 Body weight 81.[address] Rosemary Doran Work Phone: [facility] 05-15-2023 09:01-0500 Diastolic blood pressure 85 mm[Hg] Dr. Rosemary Doran Work Phone: [facility] 05-15-2023 09:01-0500 Heart rate 78 /min Dr. Rosemary Doran Work Phone: [facility] 05-15-2023 09:01-0500 Respiratory rate 18 /min Dr. Rosemary Doran Work Phone: [facility] 05-15-2023 09:01-0500 Systolic blood pressure 156 mm[Hg] Dr. Rosemary Doran Work Phone: [facility] 01-20-2023 08:05-0400 Body height 160.[address] Rosemary Doarn Work Phone: [facility] 01-20-2023 08:05-0400 Body mass index (BMI) [Ratio] 32 kg/m2 Dr. Rosemary Doran Work Phone: [facility] 01-20-2023 08:05-0400 Body temperature 98 [degF] Dr. Rosemary Doran Work Phone: [facility] 01-20-2023 08:05-0400 Body weight 82.[address] Rosemary Doran Work Phone: [facility] 01-20-2023 08:05-0400 Diastolic blood pressure 90 mm[Hg] Dr. Rosemary Doran Work Phone: [facility] 01-20-2023 08:05-0400 Heart rate 88 /min Dr. Rosemary Doran Work Phone: [facility] 01-20-2023 08:05-0400 Respiratory rate 17 /min Dr. Rosemary Doran Work Phone: [facility] 01-20-2023 08:05-0400 SaO2% (BldA) [Mass fraction] 97 % Dr. Rosemary Doran Work Phone: [facility] 01-20-2023 08:05-0400 Systolic blood pressure 140 mm[Hg] Dr. Rosemary Doran Work Phone: [facility] 12-28-2022 11:09-0400 Body temperature 97.8 [degF] Dr. Rosemary Doran Work Phone: [facility] 12-28-2022 11:09-0400 Diastolic blood pressure 79 mm[Hg] Dr. Rosemary Doran Work Phone: [facility] 12-28-2022 11:09-0400 Heart rate 84 /min Dr. Rosemary Doran Work Phone: [facility] 12-28-2022 11:09-0400 Respiratory rate 16 /min Dr. Rosemary Doran Work Phone: [facility] 12-28-2022 11:09-0400 SaO2% (BldA) [Mass fraction] 96 % Dr. Rosemary Doran Work Phone: [facility] 12-28-2022 11:09-0400 Systolic blood pressure 169 mm[Hg] Dr. Rosemary Doran Work Phone: [facility] 12-27-2022 19:16-0400 Body height 160.[address] Rosemary Doran Work Phone: [facility] 12-27-2022 19:16-0400 Body mass index (BMI) [Ratio] 32.1 kg/m2 Dr. Rosemary Doran Work Phone: [facility] 12-27-2022 19:16-0400 Body weight 82.[address] Rosemary Doran Work Phone: [facility] 12-05-2022 09:25-0400 Body temperature 98.2 [degF] Dr. Rosemary Doran Work Phone: [facility] 12-05-2022 09:25-0400 Body weight 82.[address] Rosemary Doran Work Phone: [facility] 12-05-2022 09:25-0400 Diastolic blood pressure 85 mm[Hg] Dr. Rosemary Doran Work Phone: [facility] 12-05-2022 09:25-0400 Heart rate 90 /min Dr. Rosemary Doran Work Phone: [facility] 12-05-2022 09:25-0400 SaO2% (BldA) [Mass fraction] 95 % Dr. Rosemary Doran Work Phone: [facility] 12-05-2022 09:25-0400 Systolic blood pressure 145 mm[Hg] Dr. Rosemary Doran Work Phone: [facility] 11-18-2022 11:24-0400 Diastolic blood pressure 82 mm[Hg] Dr. Rosemary Doran Work Phone: [facility] 11-18-2022 11:24-0400 Heart rate 76 /min Dr. Rosemary Doran Work Phone: [facility] 11-18-2022 11:24-0400 Respiratory rate 15 /min Dr. Rosemary Doran Work Phone: [facility] 11-18-2022 11:24-0400 SaO2% (BldA) [Mass fraction] 98 % Dr. Rosemary Doran Work Phone: [facility] 11-18-2022 11:24-0400 Systolic blood pressure 137 mm[Hg] Dr. Rosemary Doran Work Phone: [facility] 11-18-2022 07:55-0400 Body height 160.[address] Rosemary Doran Work Phone: [facility] 11-18-2022 07:55-0400 Body mass index (BMI) [Ratio] 32.9 kg/m2 Dr. Rosemary Doran Work Phone: [facility] 11-18-2022 07:55-0400 Body weight 84.[address] Rosemary Doran Work Phone: [facility] 11-18-2022 07:50-0400 Body temperature 97.8 [degF] Dr. Rosemary Doran Work Phone: [facility] 11-15-2022 10:11-0400 Body mass index (BMI) [Ratio] 32.2 kg/m2 Dr. Rosemary Doran Work Phone: [facility] 11-15-2022 08:55-0400 Body temperature 97.7 [degF] Dr. Rosemary Doran Work Phone: [facility] 11-15-2022 08:55-0400 Diastolic blood pressure 78 mm[Hg] Dr. Rosemary Doran Work Phone: [facility] 11-15-2022 08:55-0400 Heart rate 68 /min Dr. Rosemary Doran Work Phone: [facility] 11-15-2022 08:55-0400 Respiratory rate 16 /min Dr. Rosemary Doran Work Phone: [facility] 11-15-2022 08:55-0400 SaO2% (BldA) [Mass fraction] 96 % Dr. Rosemary Doran Work Phone: [facility] 11-15-2022 08:55-0400 Systolic blood pressure 136 mm[Hg] Dr. Rosemary Doran Work Phone: [facility] 11-14-2022 13:12-0400 Body weight 82.[address] Rosemary Doran Work Phone: [facility] 11-14-2022 12:30-0400 Body temperature 97.6 [degF] Dr. Rosemary Doran Work Phone: [facility] 11-14-2022 12:30-0400 Diastolic blood pressure 101 mm[Hg] Dr. Rosemary Doran Work Phone: [facility] 11-14-2022 12:30-0400 Heart rate 64 /min Dr. Rosemary Doran Work Phone: [facility] 11-14-2022 12:30-0400 Respiratory rate 14 /min Dr. Rosemary Doran Work Phone: [facility] 11-14-2022 12:30-0400 SaO2% (BldA) [Mass fraction] 98 % Dr. Rosemary Doran Work Phone: [facility] 11-14-2022 12:30-0400 Systolic blood pressure 164 mm[Hg] Dr. Rosemary Doran Work Phone: [facility] 11-14-2022 11:02-0400 Body height 160.[address] Rosemary Doran Work Phone: [facility] 11-14-2022 11:02-0400 Body mass index (BMI) [Ratio] 33.7 kg/m2 Dr. Rosemary Doran Work Phone: [facility] 11-14-2022 11:02-0400 Body weight 86.[address] Rosemary Doran Work Phone: [facility] 10-15-2022 09:24-0400 Body height 160.[address] Rosemary Doran Work Phone: [facility] 10-15-2022 09:24-0400 Body mass index (BMI) [Ratio] 30.8 kg/m2 Dr. Rosemary Doran Work Phone: [facility] 10-15-2022 09:24-0400 Body weight 78.[address] Rosemary Doran Work Phone: [facility] 10-15-2022 09:24-0400 Diastolic blood pressure 87 mm[Hg] Dr. Rosemary Doran Work Phone: [facility] 10-15-2022 09:24-0400 Heart rate 73 /min Dr. Rosemary Doran Work Phone: [facility] 10-15-2022 09:24-0400 Respiratory rate 18 /min Dr. Rosemary Doran Work Phone: [facility] 10-15-2022 09:24-0400 Systolic blood pressure 149 mm[Hg] Dr. Rosemary Doran Work Phone: [facility] 09-18-2022 19:36-0400 Diastolic blood pressure 72 mm[Hg] Dr. Rosemary Doran Work Phone: [facility] 09-18-2022 19:36-0400 Systolic blood pressure 140 mm[Hg] Dr. Rosemary Doran Work Phone: [facility] 09-18-2022 08:05-0400 Body height 160.[address] Rosemary Doran Work Phone: [facility] 09-18-2022 08:05-0400 Body mass index (BMI) [Ratio] 31.8 kg/m2 Dr. Rosemary Doran Work Phone: [facility] 09-18-2022 08:05-0400 Body temperature 97.8 [degF] Dr. Rosemary Doran Work Phone: [facility] 09-18-2022 08:05-0400 Body weight 81.[address] Rosemary Doran Work Phone: [facility] 09-18-2022 08:05-0400 Heart rate 111 /min Dr. Rosemary Doran Work Phone: [facility] 09-18-2022 08:05-0400 Respiratory rate 17 /min Dr. Rosemary Doran Work Phone: [facility] 09-18-2022 08:05-0400 SaO2% (BldA) [Mass fraction] 99 % Dr. Rosemary Doran Work Phone: [facility] 09-08-2022 16:03-0400 Diastolic blood pressure 84 mm[Hg] Dr. Rosemary Doran Work Phone: [facility] 09-08-2022 16:03-0400 Heart rate 90 /min Dr. Rosemary Doran Work Phone: [facility] 09-08-2022 16:03-0400 Respiratory rate 20 /min Dr. Rosemary Doran Work Phone: [facility] 09-08-2022 16:03-0400 SaO2% (BldA) [Mass fraction] 97 % Dr. Rosemary Doran Work Phone: [facility] 09-08-2022 16:03-0400 Systolic blood pressure 157 mm[Hg] Dr. Rosemary Doran Work Phone: [facility] 09-08-2022 15:32-0400 Body mass index (BMI) [Ratio] 33.2 kg/m2 Dr. Rosemary Doran Work Phone: [facility] 09-08-2022 15:32-0400 Body weight [address] Rosemary Doran Work Phone: [facility] 09-08-2022 14:26-0400 Body temperature 96.8 [degF] Dr. Rosemary Doran Work Phone: [facility] 04-16-2022 14:26-0500 Body height 160.[address] Rosemary Doran Work Phone: [facility] 04-16-2022 14:26-0500 Body mass index (BMI) [Ratio] 30.6 kg/m2 Dr. Rosemary Doran Work Phone: [facility] 04-16-2022 14:26-0500 Body weight 78.[address] Rosemary Doran Work Phone: [facility] 04-16-2022 14:26-0500 Diastolic blood pressure 60 mm[Hg] Dr. Rosemary Doran Work Phone: [facility] 04-16-2022 14:26-0500 Heart rate 88 /min Dr. Rosemary Doran Work Phone: [facility] 04-16-2022 14:26-0500 Respiratory rate 18 /min Dr. Rosemary Doran Work Phone: [facility] 04-16-2022 14:26-0500 Systolic blood pressure 89 mm[Hg] Dr. Rosemary Doran Work Phone: [facility] 02-11-2022 02:02-0500 Diastolic blood pressure 82 mm[Hg] Dr. Rosemary Doran Work Phone: [facility] 02-11-2022 02:02-0500 Heart rate 74 /min Dr. Rosemary Doran Work Phone: [facility] 02-11-2022 02:02-0500 Respiratory rate 16 /min Dr. Rosemary Doran Work Phone: [facility] 02-11-2022 02:02-0500 SaO2% (BldA) [Mass fraction] 96 % Dr. Rosemary Doran Work Phone: [facility] 02-11-2022 02:02-0500 Systolic blood pressure 106 mm[Hg] Dr. Rosemary Doran Work Phone: [facility] 02-11-2022 00:07-0500 Body height 160.[address] Rosemary Doran Work Phone: [facility] Work Phone: 02-11-2022 00:07-0500 Body mass index (BMI) [Ratio] 33.1 kg/m2 Dr. Rosemary Doran Work Phone: [facility] 02-11-2022 00:07-0500 Body temperature 98.4 [degF] Dr. Rosemary Doran Work Phone: [facility] 02-11-2022 00:07-0500 Body weight 84.[address] Rosemary Doran Work Phone: [facility] 10-18-2021 10:26-0400 Body mass index (BMI) [Ratio] 33.1 kg/m2 Dr. Rosemary Doran Work Phone: [facility] Work Phone: 10-18-2021 10:26-0400 Body weight 84.[address] Rosemary Doran Work Phone: [facility] Work Phone: 10-18-2021 10:26-0400 Diastolic blood pressure 63 mm[Hg] Dr. Rosemary Doran Work Phone: [facility] Work Phone: 10-18-2021 10:26-0400 Heart rate 87 /min Dr. Rosemary Doran Work Phone: [facility] Work Phone: 10-18-2021 10:26-0400 Respiratory rate 20 /min Dr. Rosemary Doran Work Phone: [facility] Work Phone: 10-18-2021 10:26-0400 SaO2% (BldA) [Mass fraction] 96 % Dr. Rosemary Doran Work Phone: [facility] Work Phone: 10-18-2021 10:26-0400 Systolic blood pressure 101 mm[Hg] Dr. Rosemary Doran Work Phone: [facility] Work Phone: Encounters Encounter Date Encounter Type Care Provider Facility Start: 10-04-2024 ambulatory [facility] Facility: [facility] Start: 09-24-2024 ambulatory [facility] Facility: [facility] Start: 09-22-2024 ambulatory [facility] Facility: [facility] Start: 09-17-2024 ambulatory [facility] Facility: [facility] Start: 09-13-2024 End: 09-13-[address] Anant Juarez MD -[facility] Work Phone: Start: 09-13-2024 End: 09-13-[address] Alexandra Hagen MD Work Phone: [facility] Work Phone: Start: 09-13-2024 End: 09-13-2024 ambulatory [facility] Start: 09-11-2024 Non-patient / Non-visit Dr. Bai DO [facility] Work Phone: Start: 09-10-2024 End: 09-11-2024 ambulatory [facility] Start: 09-10-2024 End: 09-11-2024 Evaluation and management of inpatient Dr. Matthew Oro DO [facility] Work Phone: Start: 09-10-2024 End: 09-11-[address] Alexandra Hagen MD Work Phone: [facility] Work Phone: Start: 09-08-2024 End: 09-08-2024 Emergency department patient visit Dr. Alexandra Hagen MD Work Phone: -Emergency Department Work Phone: Start: 08-18-2024 End: 08-18-[address] Alexandra Hagen MD Work Phone: [facility] Work Phone: Start: 08-18-2024 End: 08-18-2024 Departed Referred [facility] Work Phone: Start: 08-18-2024 Registered Referred [facility] Work Phone: Start: 08-18-2024 End: 08-18-2024 ambulatory Cesar MARTINEZ Facility:[facility] Start: 07-19-2024 End: 07-19-[address] Alexandra Hagen MD Work Phone: [facility] Work Phone: Start: 07-19-2024 End: 07-19-2024 Departed Referred [facility] Work Phone: Start: 07-19-2024 End: 07-19-2024 ambulatory Cesar MARTINEZ Facility:[facility] Start: 07-01-2024 End: 07-01-[address] Cesar Cole MD -[facility] Work Phone: Start: 07-01-2024 End: 07-01-2024 ambulatory Alexandra Hagen Facility:[facility] Start: 06-16-2024 End: 06-16-[address] Alexandra Hagen MD Work Phone: [facility] Work Phone: Start: 06-16-2024 End: 06-16-[address] [facility] Work Phone: Start: 06-16-[address] [facility] Work Phone: Start: 06-16-2024 End: 06-16-2024 ambulatory Alexandra Hagen Facility:[facility] Start: 06-09-2024 End: 06-09-[address] Alexandra Hagen MD Work Phone: [facility] Work Phone: Start: 06-09-2024 End: 06-09-[address] [facility] Work Phone: Start: 06-09-2024 End: 06-09-2024 ambulatory Alexandra Hagen Facility:[facility] Start: 05-19-2024 End: 05-19-[address] Alexandra Hagen MD Work Phone: [facility] Work Phone: Start: 05-19-2024 End: 05-19-20[address] [facility] Work Phone: Start: 05-19-2024 Registered Referred [facility] Work Phone: Start: 05-19-2024 End: 05-19-2024 ambulatory Cesar MARTINEZ Facility:[facility] Start: 05-12-2024 ambulatory Alexandra Hagen Facility: [facility] Start: 05-12-2024 Registered Referred [facility] Work Phone: Start: 05-10-2024 End: 05-10-[address] Anant Juarez MD -[facility] Work Phone: Start: 05-10-2024 End: 05-10-2024 ambulatory Anant Juarez Facility:[facility] Start: 05-05-2024 End: 05-05-[address] Alexandra Hagen MD Work Phone: [facility] Work Phone: Start: 05-05-2024 End: 05-05-2024 Departed Referred [facility] Work Phone: Start: 05-05-[address] Work Phone: Start: 05-05-2024 End: 05-05-2024 ambulatory Cesar Cole [facility] Facility:[facility] Start: 04-28-2024 End: 04-28-[address] Alexandra Hagen MD Work Phone: [facility] Work Phone: Start: 04-28-2024 End: 04-28-[address] [facility] Work Phone: Start: 04-28-2024 End: 04-28-2024 ambulatory Alexandra S Jolliff Facility:[facility] Start: 04-14-2024 ambulatory Alexandra S Jolliff Facility: [facility] Start: 04-14-[address] [facility] Work Phone: Start: 04-09-2024 End: 04-09-[address] [facility] Work Phone: Start: 04-09-2024 End: 04-09-2024 ambulatory Alexandra S Jolliff Facility:[facility] Start: 04-06-2024 End: 04-06-[address] [facility] Work Phone: Start: 04-05-2024 End: 04-06-2024 ambulatory Alexandra S Jolliff Facility:[facility] Start: 04-05-[address] [facility] Work Phone: Start: 03-29-2024 ambulatory Kvng MARTINEZ Facil ity:[facility] Start: 03-29-[address] [facility] Work Phone: Start: 03-26-2024 ambulatory Kvng MARTINEZ Facil ity:[facility] Start: 03-26-[address] [facility] Work Phone: Start: 03-25-2024 ambulatory Kvng Ochoa [facility] Facil ity:[facility] Start: 03-25-[address] [facility] Work Phone: Start: 03-19-2024 ambulatory Alexandra S Jolliff Facility: [facility] Start: 03-19-[address] [facility] Work Phone: Start: 03-17-2024 ambulatory Kvng MARTINEZ Facil ity:[facility] Start: 03-17-[address] [facility] Work Phone: Start: 03-10-2024 ambulatory Alexandra S Jolliff Facility: [facility] Start: 03-10-[address] [facility] Work Phone: Start: 03-08-2024 ambulatory Alexandra S Jolliff Facility: [facility] Start: 03-08-[address] [facility] Work Phone: Start: 03-04-2024 ambulatory Alexandra S Jolliff Facility: [facility] Start: 03-04-[address] [facility] Work Phone: Start: 02-05-2024 End: 02-05-[address] [facility] Work Phone: Start: 02-05-2024 End: 02-05-2024 ambulatory Kvng MARTINEZ Facility:[facility] Start: 01-08-2024 End: 01-08-2024 ambulatory Kvng MARTINEZ Facility:[facility] Start: 12-26-2023 End: 12-26-2023 ambulatory Kvng Don [facility] Facility:[facility] Start: 12-19-2023 End: 12-19-2023 ambulatory Kvng MARTINEZ Facility:[facility] Start: 12-18-2023 End: 12-18-2023 ambulatory Alexandra S Jolliff Facility:[facility] Start: 11-20-2023 ambulatory Kvng MARTINEZ Facil ity:[facility] Start: 11-05-2023 End: 11-05-2023 ambulatory Kvng Ochoa [facility] Facility:[facility] Start: 11-04-2023 End: 11-04-2023 ambulatory Kvng Ochoa [facility] Facility:[facility] Start: 10-28-2023 End: 10-28-2023 ambulatory Alexandra S Jolliff Facility:[facility] Start: 10-24-2023 End: 10-24-2023 ambulatory Alexandra S Jolliff Facility:[facility] Start: 10-21-2023 End: 10-21-2023 ambulatory Alexandra S Jolliff Facility:[facility] Start: 10-15-2023 End: 10-15-2023 ambulatory Alexandra S Jolliff Facility:[facility] Start: 10-10-2023 End: 10-10-2023 ambulatory Alexandra S Jolliff Facility:[facility] Start: 06-30-2023 End: 06-30-[address] Rosemary Doran Work Phone: [facility] Work Phone: Start: 06-30-2023 End: 06-30-[address] Rosemary Doran Work Phone: [facility] Work Phone: Start: 06-16-2023 End: 06-20-2023 Evaluation and management of inpatient [facility] Start: 06-16-2023 End: 06-20-2023 Evaluation and management of inpatient Sae Conde MD Work Phone: [facility] Comment on above: Closed displaced fra cture of medial condyle of right humerus, initial encounter (Primary Dx) Start: 06-16-2023 Non-patient / Non-visit Dr. Slim Doran Work Phone: [facility] Start: 06-16-2023 End: 06-16-2023 Emergency department patient visit Dr. Rosemary Doran Work Phone: [facility] Work Phone: Start: 05-30-2023 End: 05-30-[address] Rosemary Doran Work Phone: [facility] Work Phone: Start: 05-30-2023 End: 05-30-[address] Rosemary Doran Work Phone: [facility] Work Phone: Start: 05-19-2023 End: 05-19-[address] Rosemary Doran Work Phone: [facility] Work Phone: Start: 05-15-2023 End: 05-15-[address] Rosemary Doran Work Phone: [facility] Work Phone: Start: 05-12-2023 End: 05-12-[address] Rosemary Doran Work Phone: [facility] Work Phone: Start: 05-12-[address] Rosemary Doran Work Phone: [facility] Work Phone: Start: 05-01-2023 End: 05-01-[address] Rosemary Doran Work Phone: [facility] Work Phone: Start: 05-01-2023 End: 05-01-[address] Rosemary Doran Work Phone: [facility] Work Phone: Start: 04-17-2023 End: 04-17-[address] Rosemary Doran Work Phone: [facility] Work Phone: Start: 04-17-2023 End: 04-17-[address] Rosemary Doran Work Phone: [facility] Work Phone: Start: 04-17-[address] Rosemary Doran Work Phone: [facility] Work Phone: Start: 03-20-2023 End: 03-20-[address] Rosemary Doran Work Phone: [facility] Work Phone: Start: 02-21-2023 End: 02-21-[address] Rosemary Doran Work Phone: [facility] Work Phone: Start: 02-21-2023 End: 02-21-[address] Rosemary Doran Work Phone: [facility] Work Phone: Start: 01-20-2023 End: 01-20-[address] Rosemary Doran Work Phone: [facility] Work Phone: Start: 01-20-2023 End: 01-20-[address] Rosemary Doran Work Phone: [facility] Work Phone: Start: 01-20-2023 End: 01-20-[address] Rosemary Doran Work Phone: [facility] Work Phone: Start: 01-16-2023 End: 01-16-[address] Rosemary Doran Work Phone: [facility] Work Phone: Start: 01-16-2023 End: 01-16-[address] Rosemary Doran Work Phone: [facility] Work Phone: Start: 12-28-2022 Non-patient / Non-visit Dr. Slim Doran Work Phone: [facility] Work Phone: Start: 12-27-2022 Non-patient / Non-visit Dr. Slim Doran Work Phone: [facility] Work Phone: Start: 12-27-2022 End: 12-28-2022 Evaluation and management of inpatient Dr. Rosemary Doran Work Phone: [facility] Work Phone: Start: 12-27-2022 End: 12-28-[address] Rosemary Doran Work Phone: [facility] Work Phone: Start: 12-19-2022 End: 12-19-[address] Rosemary Doran Work Phone: [facility] Work Phone: Start: 12-19-2022 End: 12-19-[address] Rosemary Doran Work Phone: [facility] Work Phone: Start: 12-19-[address] Rosemary Doran Work Phone: [facility] Work Phone: Start: 12-09-2022 End: 12-09-[address] Rosemary Doran Work Phone: [facility] Work Phone: Start: 12-09-2022 End: 12-09-[address] Rosemary Doran Work Phone: [facility] Work Phone: Start: 12-09-[address] Rosemary Doran Work Phone: [facility] Work Phone: Start: 12-05-2022 End: 12-05-[address] Rosemary Doran Work Phone: [facility] Work Phone: Start: 11-20-2022 End: 11-20-[address] Rosemary Doran Work Phone: [facility] Work Phone: Start: 11-20-2022 End: 11-20-[address] Rosemary Doran Work Phone: [facility] Work Phone: Start: 11-20-[address] Rosemary Doran Work Phone: [facility] Work Phone: Start: 11-18-2022 End: 11-18-2022 Emergency department patient [facility] Start: 11-15-2022 Non-patient / Non-visit Dr. Slim Doran Work Phone: [facility] Work Phone: Start: 11-14-2022 Non-patient / Non-visit Dr. Slim Doran Work Phone: [facility] Start: 11-14-2022 Non-patient / Non-visit Dr. Slim Doran Work Phone: [facility] Work Phone: Start: 11-14-2022 End: 11-15-2022 Evaluation and management of inpatient Dr. Rosemary Doran Work Phone: [facility] Work Phone: Start: 11-14-[address] Marcelo Doran Work Phone: [facility] Work Phone: Start: 10-23-2022 End: 10-23-[address] Rosemary Doran Work Phone: [facility] Work Phone: Start: 10-23-2022 End: 10-23-[address] Rosemary Doran Work Phone: [facility] Work Phone: Start: 10-22-2022 End: 10-22-[address] Rosemary Doran Work Phone: [facility] Work Phone: Start: 10-22-2022 End: 10-22-[address] Rosemary Doran Work Phone: [facility] Work Phone: Start: 10-22-[address] Sada Doran Work Phone: [facility] Work Phone: Start: 10-15-2022 End: 10-15-[address] Rosemary Doran Work Phone: [facility] Work Phone: Start: 09-26-2022 Non-patient / Non-visit Dr. Slim Doran Work Phone: [facility] Start: 09-26-2022 End: 09-26-[address] Rosemary Doran Work Phone: [facility] Work Phone: Start: 09-26-2022 End: 09-26-[address] Rosemary Doran Work Phone: [facility] Work Phone: Start: 09-18-2022 End: 09-18-[address] Rosemary Doran Work Phone: [facility] Work Phone: Start: 09-18-2022 End: 09-18-[address] Rosemary Doran Work Phone: [facility] Start: 09-13-2022 End: 09-13-[address] Rosemary Doran Work Phone: [facility] Start: 09-08-2022 End: 09-08-2022 Emergency department patient visit Dr. Rosemary Doran Work Phone: [facility] Start: 09-06-2022 End: 09-06-[address] Rosemary Doran Work Phone: [facility] Start: 09-05-2022 End: 09-05-[address] Rosemary Doran Work Phone: [facility] Start: 08-08-2022 End: 08-08-[address] [facility] Start: 06-26-2022 End: 06-26-[address] Rosemary Doran Work Phone: [facility] Work Phone: Start: 06-26-2022 End: 06-26-[address] [facility] Start: 06-04-2022 End: 06-04-[address] Rosemary Doran Work Phone: [facility] Work Phone: Start: 06-04-2022 End: 06-04-[address] Rosemary Doran Work Phone: [facility] Start: 04-16-2022 End: 04-16-[address] Rosemary Doran Work Phone: [facility] Start: 02-11-2022 End: 02-11-2022 Emergency department patient visit Dr. Rosemary Doran Work Phone: [facility] Start: 10-18-2021 End: 10-18-[address] Rosemary Doran Work Phone: [facility] Start: 10-12-2019 End: 10-12-2019 Refill Jo Perez Work Phone: [facility] Comment on above: Refill Request; Refi ll Request Start: 02-11-2018 Patient encounter ROSA ELENA Cai lity:[facility] Start: 01-05-2018 End: 01-05-2018 Patient encounter JO PEREZ Facility:[facility] Start: 07-21-2017 End: 07-21-2017 Patient encounter RICKEY CHAVARRIA Facility:[facility] Start: 07-15-2017 Patient encounter JO PEREZ Facility:[facility] Start: 07-07-2017 End: 07-07-2017 Patient encounter JO PEREZ Facility:[facility] Start: 06-27-2017 End: 06-27-2017 Patient encounter JO PEREZ Facility:[facility] Start: 06-11-2017 Patient encounter JO PEREZ Facility:[facility] Start: 02-01-2015 End: 02-01-2015 Patient encounter procedure Shi Lester Work Phone: [facility] Start: 02-01-2015 Results Only Shi ford Work Phone: [facility] Start: 04-17-2010 End: 04-17-2010 Patient encounter procedure Cruz Geiger Lipnorristt Work Phone: [facility] Start: 04-17-2010 Results Only Cruz Nguyen ippitt Work Phone: [facility] Start: 07-31-2009 End: 07-31-2009 Patient encounter procedure Clotilde Doss Work Phone: [facility] Start: 07-31-2009 Results Only Clotilde Stone V rabec Work Phone: [facility] Start: 05-07-2001 End: 05-07-2001 Patient encounter procedure Sae Hope Astrid Work Phone: [facility] Start: 05-07-2001 Results Only Sae H [...] Phone: Start: 09-10-[address] Alexandra mdaison MD Work Phone: Start: 09-10-2024 CT angiography of he ad and neck Dr. Alexandra Hagen MD Work Phone: Start: 09-10-2024 CT of head without contrast Dr. Alexandra Hagen MD Work Phone: Start: 09-08-[address] 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 Work Phone: Start: 06-19-2023 Glucose quantitative blood xcpt reagent strip Connie Perez [employer] NEEDS [employer]ANNY - 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 Work Phone: Start: 06-19-2023 Prothrombin time Meredi th Perez [employer]NY - 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 Work Phone: Start: 06-19-2023 Glucose quantitative blood xcpt reagent strip Connie Perez [employer] - 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 Work Phone: Start: 06-19-2023 Basic metabolic pane l calcium total Connie Perez [employer] - 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 Work Phone: Start: 06-18-2023 Glucose quantitative blood [...] metabolic pane l calcium total Connie Perez [employer] - 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 Work Phone: Start: 06-17-2023 Glucose quantitative blood [...] on above: Performed By: #### L [id number] ####Cloth Beamer: ALEXANDRA BUSTAMANTE ([id number])[facility] ([facility])[address] [place] [address] Start: 06-16-2023 End: 06-16-2023 Radex shoulder complete [...] Start: 02-11-2022 Plain chest X-ray Dr. Hope Doarn Work Phone: Start: 02-01-2015 CONVERTED SURGICAL PATHOLOGY [...] Activity Detail Author Start: 09-13-2024 Lamotrigine measurement [facility] Start: 09-13-2024 Measurement of substance [facility] Start: 09-11-2024 Patient discharge [facility] Start: 09-11-2024 Complete blood count [facility] Start: 09-10-2024 Following clinical p athway protocol [facility] Start: 09-10-2024 Transfusion of blood product [facility] Start: 09-10-2024 Aspiration precautions [facility] Start: 09-10-2024 Assessment of risk o f venous thromboembolism [facility] Start: 09-10-2024 Cardiac monitoring [facility] Start: 09-10-2024 Catheterization of vein [facility] Start: 09-10-2024 Consultation [facility] Start: 09-10-2024 Continuous pulse oximetry [facility] Start: 09-10-2024 Electroencephalogram [facility] Start: 09-10-2024 Elevation of head of bed [facility] Start: 09-10-2024 Exercises [facility] Start: 09-10-2024 Insertion of cathete r into peripheral vein [facility] Start: 09-10-2024 Notification of physician [facility] Start: 09-10-2024 Oxygen therapy [facility] Start: 09-10-2024 Patient referral to dietitian [facility] Start: 09-10-2024 Providing care accor ding to standard [facility] Start: 09-10-2024 Referral to occupati onal therapist [facility] Start: 09-10-2024 Referral to service [facility] Start: 09-10-2024 Speech therapy assessment [facility] Start: 09-10-2024 Telemedicine consult ation with patient [facility] Start: 09-10-2024 Tobacco use cessatio n education [facility] Start: 09-10-2024 Vital signs measurements [facility] Start: 09-10-2024 End: 09-10-2024 [facility] Start: 09-10-2024 Verification routine [facility] Start: 09-10-2024 MRI of brain without contrast Brain without Contrast [facility] Start: 09-10-2024 Admission procedure [facility] Start: 09-10-2024 [facility] Start: 09-10-2024 Bacteria identified in Urine by Culture Urine Culture [facility] Start: 09-10-2024 Urine culture [facility] Start: 09-10-2024 Oxygen therapy [facility] Start: 09-10-2024 [facility] Start: 09-08-2024 Lamotrigine measurement [facility] Start: 01-06-2024 Urine microalbumin profile DTA P,TDAP,TD (1 - Tdap) [facility] Comment on above: Postponed from 06/23 (Declined at this time) Start: 07-28-2023 ADVANCE DIRECTIVE DISCUSSION A DVANCE DIRECTIVE DISCUSSION [facility] Start: 06-16-2023 Application long arm splint shoulder hand APPLY LONG ARM SPLINT [facility] Start: 06-16-2023 [facility] Start: 03-31-2023 Medicare Advantage A nnual Wellness Visit Medicare Advantage Annual Wellness Visit [facility] Start: 01-20-2023 Serum immunofixation [facility] Start: 01-20-2023 Urine immunofixation [facility] Start: 12-28-2022 Patient discharge [facility] Start: 12-28-2022 [facility] Start: 12-27-2022 Following clinical p athway protocol [facility] Start: 12-27-2022 Assessment of risk o f venous thromboembolism [facility] Start: 12-27-2022 Catheterization of vein [facility] Start: 12-27-2022 Incentive spirometry [facility] Start: 12-27-2022 Inhalation therapy procedure [facility] Start: 12-27-2022 Insertion of cathete r into peripheral vein [facility] Start: 12-27-2022 Measuring intake and output [facility] Start: 12-27-2022 Neurological assessment [facility] Start: 12-27-2022 Providing care accor ding to standard [facility] Start: 12-27-2022 Provision of activit y privileges [facility] Start: 12-27-2022 Referral to occupati onal therapist [facility] Start: 12-27-2022 Referral to service [facility] Start: 12-27-2022 Speech therapy assessment [facility] Start: 12-27-2022 [facility] Start: 12-27-2022 Admission procedure [facility] Start: 11-15-2022 Patient discharge [facility] Start: 11-15-2022 Blood chemistry [facility] Start: 11-14-2022 Following clinical p athway protocol [facility] Start: 11-14-2022 Assessment of risk o f venous thromboembolism [facility] Start: 11-14-2022 Cardiac monitoring [facility] Start: 11-14-2022 Catheterization of vein [facility] Start: 11-14-2022 Continuous pulse oximetry [facility] Start: 11-14-2022 Elevation of head of bed [facility] Start: 11-14-2022 Exercises [facility] Start: 11-14-[address] anned interventions [facility] Start: 11-14-2022 Insertion of cathete r into peripheral vein [facility] Start: 11-14-2022 Measuring intake and output [facility] Start: 11-14-2022 MRI of brain without contrast Brain without Contrast [facility] Start: 11-14-2022 Notification of physician [facility] Start: 11-14-2022 Oxygen therapy [facility] Start: 11-14-2022 Patient referral to dietitian [facility] Start: 11-14-2022 Providing care accor ding to standard [facility] Start: 11-14-2022 Referral to occupati onal therapist [facility] Start: 11-14-2022 Referral to service [facility] Start: 11-14-2022 Speech therapy assessment [facility] Start: 11-14-2022 Tobacco use cessatio n education [facility] Start: 11-14-2022 [facility] Start: 11-14-2022 Verification routine [facility] Start: 11-14-2022 Admission procedure [facility] Start: 11-14-2022 Patient referral to dietitian [facility] Start: 09-18-2022 Patient referral [facility] Work Phone: Start: 09-18-2022 [place] and lambda light chains [facility] Start: 09-18-2022 Thiamine measurement [facility] Start: 09-17-2022 [facility] Start: 03-26-2020 Hepatitis B screening URINE ALBUMIN:CREATININE RATIO [facility] Start: 03-26-2020 Hepatitis B surface antibody level LDL CHOLESTEROL [facility] Start: 11-30-2019 Influenza vaccination INFLUENZA (#1) [facility] Start: 10-01-2019 [object Object] DIABETIC FOOT EXAM [facility] Start: 09-25-2019 HbA1c (Bld) [Mass fraction] HBA1C [facility] Start: 07-07-2018 Hepatitis C antibody , confirmatory test DILATED RETINAL EXAM [facility] Start: 07-20-2013 DTaP/Tdap/Td Vaccine s (1 - Tdap) DTaP/Tdap/Td Vaccines (1 - Tdap) [facility] Start: 12-05-2010 SHINGRIX VACCINE (2 of 3) CONTRERAS GRIX VACCINE (2 of 3) [facility] Start: 12-05-2010 Zoster Vaccines (2 of 3) Zoste r Vaccines (2 of 3) [facility] Start: 1995 RSV Immunization age d 60 or older (1 - 1-dose 60+ series) RSV Immunization aged 60 or older (1 - 1-dose 60+ series) [facility] Start: 1947 Depression Screening Depression Scre ening [facility] Start: 1935 Screening for osteoporosis Bone Dens ity Scan [facility] Albumin [Moles/volum e] in Serum or Plasma [facility] Albumin/Globulin ratio [facility] Anion gap in Serum or Plasma [facility] Anion gap measurement [facility] Ankle brachial pressure index [facility] Blood ammonia measurement [facility] Blood ammonia measurement [facility] BUN/Creatinine ratio [facility] BUN/Creatinine ratio [facility] Calcium [Mass/volume ] in Serum or Plasma [facility] Calcium [Mass/volume ] in Serum or Plasma [facility] Carbon dioxide, tota l [Moles/volume] in Central venous blood [facility] Carbon dioxide, tota l [Moles/volume] in Serum or Plasma [facility] Chloride [Moles/volu me] in Serum or Plasma [facility] Cholesterol [Mass/vo lume] in Serum or Plasma [facility] Cholesterol [Mass/vo lume] in Serum or Plasma [facility] Cholesterol in HDL [Mass/volume] in Serum or Plasma [facility] Cholesterol in HDL [Mass/volume] in Serum or Plasma [facility] Cholesterol in LDL [Mass/volume] in Serum or Plasma [facility] Creatinine [Mass/vol ume] in Serum or Plasma [facility] Creatinine [Moles/vo lume] in Serum or Plasma [facility] Electrophoresis: [id number] [facility] Electrophoresis: andrew ma globulin [facility] Erythrocyte mean cor puscular volume determination [facility] Globulin measurement [facility] Glucose [Mass/volume ] in Serum or Plasma [facility] Glucose [Mass/volume ] in Serum or Plasma [facility] Hematocrit [Volume F raction] of Blood [facility] Hematocrit [Volume F raction] of Blood [facility] Hemoglobin [Mass/vol ume] in Blood [facility] Hemoglobin [Mass/vol ume] in Blood [facility] IgA [Mass/volume] in Serum or Plasma [facility] IgG [Mass/volume] in Serum or Plasma [facility] IgM [Mass/volume] in Serum or Plasma [facility] [place]/lambda light c nat ratio [facility] Lambda light chains. free [Mass/volume] in Serum or Plasma [facility] Lamotrigine measurement [facility] Leukocytes [#/volume ] in Blood [facility] Leukocytes [#/volume ] in Blood [facility] Low density lipoprot ein cholesterol measurement [facility] Mean corpuscular hem oglobin concentration determination [facility] Mean corpuscular hem oglobin concentration determination [facility] Mean corpuscular hem oglobin determination [facility] Mean corpuscular hem oglobin determination [facility] Measurement of renal function [facility] Measurement of renal function [facility] MR Cervical spine [facility] MR Lumbar spine [facility] Neutrophil count [facility] Neutrophil percent differential count [facility] Patient Education [facility] Work Phone: Patient referral [facility] Work Phone: Platelets [#/volume] in Blood [facility] Platelets [#/volume] in Blood [facility] Potassium [Moles/vol ume] in Serum or Plasma [facility] Potassium measurement [facility] Protein electrophore sis panel - Serum or Plasma [facility] Red blood cell count [facility] Red blood cell count [facility] Red cell distributio n width determination [facility] Red cell distributio n width determination [facility] Serum chloride measurement [facility] Serum protein electrophoresis [facility] Sodium [Moles/volume ] in Serum or Plasma [facility] Sodium measurement [facility] Total cholesterol:HD L ratio measurement [facility] Triglycerides measurement [facility] Triglycerides measurement [facility] Troponin T.cardiac [Mass/volume] in Serum or Plasma by High sensitivity method [facility] Troponin T.cardiac [Mass/volume] in Serum or Plasma by High sensitivity method [facility] Urea nitrogen [Mass/ volume] in Serum or Plasma [facility] Urea nitrogen [Mass/ volume] in Serum or Plasma [facility] Urine culture Urine Culture [place] Urine kappa light ch ain measurement [facility] US Carotid arteries [facility] VLDL cholesterol measurement [facility] VLDL cholesterol measurement [facility] Immunizations Immunization Date Immunization Notes Care Provider Naomi chung 06-02-2020 Covid (Moderna) Dr. Rosemary mixon Work Phone: [facility] 05-05-2020 Covid (Moderna) Dr. Rosemary mixon Work Phone: [facility] 04-27-2019 influenza, high dose seasonal, preservative-free Alexia Adamsdonna [facility] 01-05-2018 influenza, high dose seasonal, preservative-free Alexia Adamsi [facility] 12-12-2014 influenza, seasonal, injectable Alexia Adamsdonna [facility] 06-15-2014 pneumococcal conjuga te vaccine, 13 valent Allia Adamsdonna [facility] 12-06-2013 influenza, seasonal, injectable Alexia Adamsdonna [facility] 07-19-2013 tetanus and diphther ia toxoids, adsorbed, preservative free, for adult use (2 Lf of tetanus toxoid and 2 Lf of diphtheria toxoid) Jo Lamasdonna [facility] 01-25-2013 influenza, seasonal, injectable Alexia Jeanmarieevladariusi [facility] 01-13-2012 influenza, seasonal, injectable Alexia Jeanmarieevkaron [facility] 02-11-2011 influenza, seasonal, injectable Alexia Adamsdonna [facility] 10-10-2010 zoster vaccine, live Alexia Adamss [facility] 03-31-2006 pneumococcal polysaccharide vaccine, 23 valent [facility] Payers Date Payer Category Payer Self-pay [id number] 2023 Medicare [employer] UHC AARP MEDICARE ADVANTAGE [id number] 2023-Present [phone] [address] [address] [place] [address] Medicare HMO [id number] 2023 Unknown [id number] 2005 Unknown [id number] [id number] .187795.315 1935 Unknown [id number] 2.16.840.1.191557.3.579.2.278 1935 Unknown [id number] 2.16.840.1.910744.3.579.2.278 1935 Unknown [id number] 2.16.840.1.651615.3.579.2.278 1935 Unknown [id number] 2.16.840.1.195163.3.579.2.278 1935 Unknown [id number] 2.16.840.1.699936.3.579.2.278 1935 Unknown [id number] 2.16.840.1.598739.3.579.2.278 1935 Unknown [id number] 2.16.840.1.623693.3.579.2.278 Medicare MEDICARE PART A B [id number] Unknown [id number] Unknown [id number] 2.16.840.1.023357.3.579.2.462 Unknown [id number] 2.16.840.1.443160.3.579.2.462 Unknown [id number] 2.16.840.1.150381.3.579.2.462 Unknown [id number] 2.16.840.1.141430.3.579.2.462 Unknown [id number] 2.16.840.1.984305.3.579.2.462 Unknown [id number] 2.16.840.1.012711.3.579.2.462 Unknown [id number] 2.16.840.1.496935.3.579.2.462 Unknown [id number] 2.16.840.1.824104.3.579.2.462 Unknown [id number] 2.16.840.1.137470.3.579.2.462 Unknown [id number] 2.16.840.1.787085.3.579.2.462 Unknown [id number] 2.16.840.1.997162.3.579.2.462 Unknown [id number] 2.840.1.186328.3.579.2.462 Unknown [id number] 2.16840.1.670840.3.579.2.462 Unknown [id number] 2.840.1.533975.3.579.2.462 Unknown [id number] 2.16840.1.508884.3.579.2.462 Unknown [id number] 2.16840.1.575088.3.579.2.462 Unknown [id number] 2.840.1.117235.3.579.2.462 Unknown [id number] 2.16840.1.371193.3.579.2.462 Unknown [id number] 2.16840.1.142976.3.579.2.462 Unknown [id number] 2.16840.1.836385.3.579.2.462 Unknown [id number] 2.16.840.1.721515.3.579.2.462 Unknown [id number] 2.16.840.1.550702.3.579.2.462 Unknown [id number] 2.16.840.1.638481.3.579.2.462 Unknown [id number] 2.16840.1.195404.3.579.2.462 Unknown [id number] 2.16.840.1.861542.3.579.2.462 Unknown [id number] 2.16.840.1.542311.3.579.2.462 Unknown [id number] 2.16.840.1.692718.3.579.2.462 Unknown [id number] 2.16840.1.343861.3.579.2.462 Unknown [id number] 2.16840.1.138029.3.579.2.462 Unknown [id number] 2.840.1.366804.3.579.2.462 Unknown [id number] 2.840.1.890229.3.579.2.462 Unknown [id number] 2.840.1.466179.3.579.2.462 Unknown [id number] 2.840.1.295467.3.579.2.462 Unknown [id number] 2.840.1.804697.3.579.2.462 Unknown [id number] 2.840.1.109154.3.579.2.462 Unknown [id number] 2.840.1.007575.3.579.2.462 Unknown [id number] 2.840.1.331353.3.579.2.462 Unknown [id number] 2.840.1.355121.3.579.2.462 Unknown [id number] 2.840.1.552458.3.579.2.462 Unknown [id number] 2.840.1.386432.3.579.2.462 Unknown [id number] 2.16840.1.279541.3.579.2.462 Unknown [id number] 2.16840.1.975720.3.579.2.462 Unknown [id number] 2.840.1.839043.3.579.2.462 Unknown [id number] 2.16.840.1.254502.3.579.2.462 Unknown [id number] 2.16.840.1.381660.3.579.2.462 Social History Date Type Detail Facility Start: 05-13-2019 End: 09-11-2024 Tobacco smoking status NHIS Former smoker [facility] End: 03-20-2008 History of tobacco use Current smoker [facility] End: 03-20-2008 History of tobacco use Cigarette Smoker [facility] Start: 05-13-2019 End: 06-17-2023 Cigarettes smoked current (pack per day) - Reported [facility] Start: 05-13-2019 End: 06-18-2023 Tobacco use and exposure Never used [facility] Start: 05-13-2019 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) [facility] Start: 1935 Sex Assigned At Not on file [facility] Exposure to SARS-CoV -2 (event) Not sure [facility] Start: 02-11-2022 End: 06-16-2023 Tobacco smoking status NHIS Unknown if ever smoked [facility] Start: 04-19-2020 Rare [facility] Start: 04-19-2020 None [facility] Start: 04-19-2020 Spouse/ Signif icant Other [facility] Start: 08-11-2020 Non-smoker [facility] Start: 1935 Sex Assigned At Female W [facility] Start: 06-18-2023 Tobacco smoking stat us NHIS Never smoked tobacco [employer] Start: 06-17-2023 End: 06-18-2023 [facility] [employer], [employer], or water [employer] threatened to shut off services in your home in past 12Mo No Networker How often to you hav e a drink containing alcohol? Never [facility] How many standard drinks containing alcohol do you have on a typical day? Patient does not drink [facility] (I/We) worried wheth er (my/our) food would run out before (I/we) got money to buy more. Never true [employer] Start: 06-04-2024 End: 07-20-2024 Sex Female (finding) [facility] Medical Equipment Procedure Code Equipment Code Equipment [...] Diagnosis code E11.9 Use as instructed Bio SIM Digital Cancellous 30cc 1-8 - [id number] - [id number] Start: 06-18-2023 Plate Hum Dist 2.7/3.5 [id number] Start: 06-18-2023 Plate Va Olcrn 2.7/3.5 2h R - [id number] Start: 06-18-2023 Plate Va M-D-Hum 2.7/3.5 1h L - [id number]_imp Start: 06-18-2023 Screw Lck Va 2.5e14u-A T8 Rcs - [id number] 83964_imp Start: 06-18-2023 Screw Lck Va 2.7x58 S-T T8 Rcs - [id number]_imp Start: 06-18-2023 Screw Lck Va 2.8m72h-A T8 Rcs - [id number] 83966_imp Start: 06-18-2023 Screw Lck Va 2.0c94t-K T8 Rcs - [id number] 83967_imp Start: 06-18-2023 Screw Lck Va 2.9m38l-X T8 Rcs - [id number] 83968_imp Start: 06-18-2023 Screw Lck Va 2.7x50 S-T T8 Rcs - [id number] 83969_imp Start: 06-18-2023 Screw Crtx 3.5x22mm S-T - [id number]_imp Start: 06-18-2023 Screw Crtx 3.5x26mm S-T - [id number]_imp Start: 06-18-2023 Screw Lck Va 2.3s09k-V T8 Rcs - [id number] 83975_imp Start: 06-18-2023 Screw Lck Va 2.5y61s-I T8 Rcs - [id number] 83976_imp Start: 06-18-2023 Screw Lck Va 2.7x56 S-T T8 Rcs - [id number] 83956_imp Start: 06-18-2023 Screw Crtx 3.5x28mm S-T - [id number] 83957_imp Start: 06-18-2023 Screw Crtx 3.5x30mm S-T - [id number] 83958_imp Start: 06-18-2023 Screw Lck Va 2.9k14q-R T8 Rcs - [id number] 83959_imp Start: 06-18-2023 Screw Lck Va 2.6p32d-W T8 Rcs - [id number] 83961_imp Start: 06-18-2023 Goals Date Patient Goal Desired Activity /State Functional Status Date Assessment Result Facility 09-11-2024 Functional status [facility] Work Phone: 12-28-2022 Functional status [facility] Work Phone: 11-15-2022 Functional status Chair [facility] Work Phone: Mental Status Date Assessment Result Facility 09-11-2024 Cognitive function Voice/Name [facility] Work Phone: 09-10-2024 Cognitive function Voice/Name [facility] Work Phone: 09-08-2024 Cognitive function Voice/Name [facility] Work Phone: 12-28-2022 Cognitive function Voice/Name [facility] Work Phone: 11-18-2022 Cognitive function Level Of Cons ciousness Awake;Alert;Appropriate [facility] Work Phone: 11-15-2022 Cognitive function Appropriate;Cooperativ e [facility] Work Phone: 11-14-2022 Cognitive function Voice/Name [facility] Work Phone: 11-14-2022 Cognitive function Voice/Name [facility] Work Phone: 09-08-2022 Cognitive function Awake;Alert;A ppropriate;Follow s Commands [facility] Work Phone: 02-11-2022 Cognitive function Awake;Alert;Appropriat e [facility] Work Phone: Clinical Notes 02-14-2007 to 09-11-2024 Note Date & Type Note Facility 09-11-2024 Discharge summary [facility] 09-11-2024 Procedure note [facility] 09-11-2024 Discharge summary [facility] 09-11-2024 Discharge summary Note Date/Time September 11, 2024 2:40pm [facility] Medical Records Department [address] [place] [id number] Instructions for Home/Discharge Instructions 09/11/24 1214 MR#: [id number] Acct: [id number] Name: EZRA GONZALEZ Rep #:[id number] : 1935 89 From: Matthew carbajal DO [...] Thurman DO; Ashu Leonard MD ~ Signed [facility] Work Phone: 1(513) 518-816006-14-2025 Discharge summary Author [facility] Note Date/Time September 11, 2024 3:14 pm [facility] Medical Records Department [address] [place] [address] Discharge Summary 09/11/24 1214 MR#: [id number] Acct: [id number] Name: EZRA GONZALEZ Rep #:[id number] : 1935 89 From: Matthew carbajal DO PCP: Dr. Kvng Ochoa DO Status:ADM MARIELOS Location: [place] [address] Providers Date of Admission: 09/10/24 Date of [...] is an 89-year-old female who presented to [facility] ED on 09/10/2024 with dysarthria. 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 Reading Location: [id number] Brain MRI 09/10/24 16:07 IMPRESSION: Atrophy and [...] Self Care Charges/Coding Visit Charges Inpatient E&M: 42909 Disch Hosp >30min 09/11/24 1444 <Electronically signed [...] DO; Dr. Kvng Ochoa DO ~* Signed [facility] Work Phone: 1(269) 424-686206-14-2025 Progress note Author Lenin Tamez [facility] Note Date/Time September 11, 2024 10:4 1am [facility] Medical Records Department [address] [place] [address] Progress Note - Neurology 09/11/24 1035 MR#: [id number] Acct: [id number] Name: EZRA GONZALEZ Rep #:[id number] : 1935 89 From: Lenin Morel PCP: Dr. 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 MRI brain - no acute stroke. LDL-100 Diagnosis: TIA Plan: Continue coumadin and statin. Check A1c. Follow up EEG. Continue lamictal.Follow up with neurology as an outpatient. 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 History is obtained from patient. On my exam, NIHSS-0 and patient reports feeling better. She follows with Dr. Juarez with neurology. CT head- no acute intracranial process. 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 MRI brain - no acute stroke. 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 NO ACUTE FINDINGS. Red Alert: Chronic changes. The critical information above was relayed directly by me by telephone to Teri Garcia on 09/10/2024 at 2:05 pm with readback verification. Reading Location: [facility] Head/Neck CTA 09/10/24 13:55 IMPRESSION: Calcific plaque [...] 3:01 pm with readback verification. Reading Location: [facility] Brain MRI 09/10/24 16:07 IMPRESSION: Atrophy and mild microvascular changes Reading Location: [facility] Rhythm Strip Rhythm Strip: A-fib Rate: [...] and with change in RN caregiver. Freq: [id number] Protocol: Activity Type Activity Date Activity User E-sign Co-sign Detail Recorded Client Recorded Date Recorded By Document 09/11/24 09:08 YOVANY [id number] 09/11/24 09:08 YOVANY 09/11/24 09:08 NIH Stroke [...] Cosigner Signature (if applicable): CC: ~ Signed [facility] Work Phone: 1(173) 446-247906-14-2025 [facility] Medical Records Department [address] [place] [address] Discharge Summary 09/11/24 1214 MR#: [id number] Acct: [id number] Name: EZRA GONZALEZ Rep #: [id number] : 1935 89 From: Matthew Oro DO PCP: Dr. Kvng Ochoa, Status:ADM MARIELOS Location: [place] [address] Providers Date of Admission: 09/10/24 Date of [...] is an 89-year-old female who presented to [facility] ED on 09/10/2024 with dysarthria. Short hospital [...] and non- distended Anastasia (more content not included)...[facility]06-14-2025 Progress note [facility] Medical Records Department [address] [place] [address] Progress Note - Neurology 09/11/24 1035 MR#: [id number] Acct: [id number] Name: EZRA GONZALEZ Rep #:[id number] : 1935 89 From: Lenin Morel PCP: Dr. Kvng Ochoa, DO Status:ADM MARIELOS Location: [place] [address] Assessment and Plan: Neuro Assessment/Plan Telestroke (Audio/Video Encounter) 89 y/o woman with h/o DM, HTN, Afib on coumadin (INR 2 days ago was 2.9 and 2.4 at [place]) and seizure on lamictal (had last GTC on Friday) p/w transient dysarthria. History is obtained from patient. On my exam, NIHSS-0 and patient reports feeling better. She follows with Dr. Juarez with neurology. CT head- no acute intracranial process. 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 MRI brain - no acute stroke. LDL-100 Diagnosis: TIA Plan: Continue coumadin and statin. Check A1c. Follow up EEG. Continue lamictal.Follow up with neurology as an outpatient. 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 History is obtained from patient. On my exam, NIHSS-0 and patient reports feeling better. She follows with Dr. Juarez with neurology. CT head- no acute intracranial process. 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 MRI brain - no acute stroke. 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 NO ACUTE FINDINGS. Red Alert: Chronic changes. The critical information above was relayed directly by me by telephone to Teri Garcia on 09/10/2024 at 2:05 pm with readback verification. Reading Location: [id number] Head/Neck CTA 09/10/24 13:55 IMPRESSION: Calcific plaque [...] 3:01 pm with readback verification. Reading Location: [facility] Brain MRI 09/10/24 16:07 IMPRESSION: Atrophy and mild microvascular changes Reading [facility] Rhythm Strip Rhythm Strip: A-fib [...] and with change in RN caregiver. Freq: [id number] Protocol: Activity Type Activity Date Activity User E-sign Co-sign Detail Recorded Client Recorded Date Recorded By Document 09/11/24 09:08 YOVANY [id number] 09/11/24 09:08 YOVANY 09/11/24 09:08 NIH Stroke [...] Cosigner Signature (if applicable): CC: ~ Signed [facility]06-13-2025 History and physical note Author Matthew Oro [facility] Note Date/Time September 10, 2024 5:27 pm [facility] Medical Records Department [address] [place] [address] H&P Exam - Hospitalist 09/10/24 1603 MR#: [id number] Acct: [id number] Name: EZRA GONZALEZ Rep #:[id number] : 1935 89 From: Matthew carbajal DO PCP: Dr. Kvng Ochoa DO Status:ADM MARIELOS Location: [address] HPI - General General Date of Admission: 09/10/24 Date of Service: 09/10/24 Chief Complaint: Dysarthria HPI Narrative EZRA GONZALEZ, is a 89 F who presented to [facility] ED on 09/10/2024 with dysarthria. Patient lives at assisted living at [place]. Has history of seizures and is on [...] any other acute concerns at this time. 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 Reading Location: [id number] Head/Neck CTA 09/10/24 13:55 IMPRESSION: Calcific plaque [...] 3:01 pm with readback verification. Reading Location: [id number] Assessment & Plan Assessment/Plan (1) Difficulty with speech: PLAN: Plan Patient is an 89-year-old female who presented to [facility] ED on 09/10/2024 with dysarthria. 1. Episode [...] 55 minutes. Charges/Coding Visit Charges Inpatient E&M: 66160 Init Hosp L2 09/10/24 1727 <Electronically signed by Matthew Oro DO> Cosigner Signature (if applicable): CC: Dr. Matthew Oro DO; Dr. Kvng Ochoa DO~ Signed [facility] Work Phone: 1(610) 725-132506-13-2025 Discharge summary [facility] Note Date/Time September 10, 2024 4:17 pm [facility] Medical Records Department [address] [place] [address] Emergency Department Summary 09/10/24 MR#: [id number] Acct: [id number] Name: EZRA GONZALEZ Rep #:[id number] : 1935 89 From: Teri Echeverria PCP: [...] son Wilfredo (her eldest son) phone number [phone]. He states that she follows with Dr. 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 He also tells me that he talk to her about 615 this morningand she seemed a little off with her mentation as well as her pronunciation. 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 Reading Location: [id number] Head/Neck CTA 09/10/24 13:55 IMPRESSION: Calcific plaque [...] 3:01 pm with readback verification. Reading Location: [id number] Rhythm Strip Rhythm Strip: A-fib Rate: 75 Ectopy: None EKG Initial EKG: Attestation: I personally reviewed and interpreted this EKG as follows: Interpretation: Atrial Fibrillation Comments: Atrial fibrillation at a rate of 75 bpm Left axis deviation Moderate voltage criteria for LVH Normal ST segments Management Discussion w/another healthcare provider: Hospitalist, Aids Nurse and Radiologist Discharge Plan Triage Chief Complaint: Stroke Alert ED Provider: Teri Garcia Dx/Rx/DC Orders Clinical Impression: Difficulty with speech, intermediate current use of anticoagulant, Atrial fibrillation, chronic, [...] DO [Primary Care Provider] - Print Language: Montserratian Disposition Disposition: Acute Care Hospital [facility] NIHSS NIHSS 1a. Level of Consciousness: [...] No aphasia; normal 10. Dysarthria: 1 = Degu-vg-igzwgmld dysarthria; 11. Extinction and Inattention: 0 - [...] problems, contact your Primary Care Provider. Call tracx Registry ([phone]) or report to the closest Emergency Room. Call 911 if necessary. 09/10/24 7214 <Electronically signed by Teri Garcia DO> Cosigner Signature (if applicable): CC: Dr. Kvng Ochoa DO ~ Signed [facility] Work Phone: 1(941) 790-157606-13-2025 History and physical note [facility] Medical Records Department [address] [place] [address] H&P Exam - Hospitalist 09/10/24 1603 MR#: [id number] Acct: [id number] Name: EZRA GONZALEZ Rep #:[id number] : 1935 89 From: Matthew carbajal DO PCP: Dr. Kvng Ochoa DO Status:ADM MARIELOS Location: [place] [id number] HPI - General General Date of Admission: 09/10/24 Date of Service: 09/10/24 Chief Complaint: Dysarthria HPI Narrative EZRA GONZALEZ, is a 89 F who presented to [facility] ED on 09/10/2024 with dysarthria. Patient lives at assisted living at [place]. Has history of seizures and is on [...] any other acute concerns at this time. 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 1. Episode [...] 55 minutes. Charges/Coding Visit Charges Inpatient E&M: 84185 Init Hosp L2 09/10/24 1727 Cosigner Signature (if applicable): CC: Dr. Matthew Oro DO; Dr. Kvng Ochoa DO~ Signed [facility]06-13-2025 Discharge summary [facility] Medical Records Department [address] [place] [address] Emergency Department Summary 09/10/24 MR#: [id number] Acct: [id number] Name: EZRA GONZALEZ Rep #:[id number] : 1935 89 From: Teri Echeverria PCP: [...] son Wilfredo (her eldest son) phone number [phone]. He states that she follows with Dr. 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 He also tells me that he talk to her about 615 this morningand she seemed a little off with her mentation as well as her pr onunciation. 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 [...] 72.3 H Lymph % (Auto) 16.6 L [place] % (Auto) 9.1 Eos % (Auto) 1.2 [...] Clarity Clear Urine pH 5.0 Ur Specific Glasco 1.010 Urine Protein 30 H Urine Glucose [...] segments Management Discussion w/another healthcare provider: Hospitalist, Aids Nurse and Radiologist Discharge Plan Triage Chief Complaint: Stroke Alert ED Provider: Teri Garcia Dx/Rx/DC Orders Clinical Impression: Difficulty with speech, intermediate current use of anticoagulant, Atrial fibrillation, chronic, [...] DO [Primary Care Provider] - Print Language: Montserratian Disposition Disposition: Acute Care Hospital [facility] NIHSS NIHSS 1a. Level of Consciousness: [...] No aphasia; normal 10. Dysarthria: 1 = Xjya-id-gznvpbbh dysarthria; 11. Extinction and Inattention: 0 - [...] problems, contact your Primary Care Provider. Call tracx Registry ([phone]) or report tothe closest Emergency Room. Call 911 if necessary. 09/10/24 1617 Cosigner Signature (if applicable): CC: Dr. Kvng Ochoa DO ~ Signed [facility]06-13-2025 Radiology Diagnostic study note [facility] Imaging Services [address] [place] [address] STROKE CTA Head AND Neck W/Con MR#: [id number] Acct: [id number] Name: EZRA GONZALEZ Rep #: [id number] : 1935 F 89 From: Jian Gipson MD PCP: Dr. Kvng Ochoa DO Status: REG ER Study:STROKE CTA Head AND Neck W/Con Date of Exam: 09/10/24 Exam# [id number] Ordering Dr: Adeel Garcia DO PROCEDURE: STROKE [...] RIGHT Vertebral: Unremarkable. LEFT Vertebral: Unremarkable. Anatomy: [place] of Monique anatomy is normal. Aneurysm or [...] 3:01 pm with readback verification. Reading Location: [facility] CC: Dr. Teri Garcia DO; Dr. Kvng Ochoa DO ~ Collator Operator: Signed [facility]06-13-2025 Radiology Diagnostic study note [facility] Imaging Services [address] [place] [id number] STROKE Brain/Head without Cont MR#: [id number] Acct: [id number] Name: EZRA GONZALEZ Rep #: [id number] : 1935 F 89 From: Jian Gipson MD PCP: Dr. Kvng Ochoa DO Status: REG ER Study:STROKE Brain/Head without Cont Date of Exam: 09/10/24 Exam# [id number] Ordering Dr: Adeel Garcia DO PROCEDURE: STROKE [...] 2:05 pm with readback verification. Reading Location: [id number] CC: Dr. Teri Garcia DO; Dr. Kvng Ochoa DO ~ Collator Operator: Signed [facility]06-11-2025 Discharge summary [facility] Medical Records Department [address] [place] [address] Emergency Department Summary 09/08/24 MR#: [id number] Acct: [id number] Name: EZRA GONZALEZ Rep #:[id number] : 1935 89 From: Anoop Blackmon MD [...] Prior similar symptoms: Yes Recent Illness/Hospitalization: No 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 Glucose is slight [id number] with a normal CO2 anion gap. Labs: Laboratory Results - last 24 hr 09/08/24 12:50 WBC 13.6 H RBC 4.40 Hgb 13.8 Hct 41.4 MCV 94.1 MCH 31.4 MCHC 33.3 RDW Std Deviation 45.2 H RDW Coeff of Sumeet 13.2 Plt Count 326 MPV 10.8 Immature Gran % (Auto) 0.400 Neut % (Auto) 75.9 H Lymph % (Auto) 16.2 L [place] % (Auto) 6.6 Eos % (Auto) 0.7 [...] with her neurologist Dr. Juarez Print Language: Montserratian Disposition Disposition: Home, Self Care What to do if you have Problems For any increased pain, shortness of breath, bleeding, nausea or vomiting, chestpain, or any unexpected problems, contact your Primary Care Provider. Call Doctors Registry ([phone]) or report tothe closest Emergency Room. Call 911 if necessary. 09/08/24 1516 Cosigner Signature (if applicable): CC: Dr. 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 Glucose is slight [id number] with a normal CO2 anion gap. Labs: Laboratory Results - last 24 hr 09/08/24 12:50 WBC 13.6 H RBC 4.40 Hgb 13.8 Hct 41.4 MCV 94.1 MCH 31.4 MCHC 33.3 RDW Std Deviation 45.2 H RDW Coeff of Sumeet 13.2 Plt Count 326 MPV 10.8 Immature Gran % (Auto) 0.400 Neut % (Auto) 75.9 H Lymph % (Auto) 16.2 L [place] % (Auto) 6.6 Eos % (Auto) 0.7 [...] with her neurologist Dr. Juarez Print Language: Montserratian Disposition Disposition: Home, Self Care What to do if you have Problems For any increased pain, shortness of breath, bleeding, nausea or vomiting, chestpain, or any unexpected problems, contact your Primary Care Provider. Call Doctors Registry ([phone]) or report to the closest Emergency Room. Call 911 if necessary. 09/08/24 1516 <Electronically signed by Anoop Blackmon MD> Cosigner Signature (if applicable): CC: Dr. Kvng Ochoa MD ~ Signed [facility] Work Phone: 1(159) 912-141904-03-2025 Evaluation note* Diagnosis Onset Date Resolution Status Admit Date Longstanding persistent atrial fibrillation acute July 01, 025 10:35am Essential (primary) hypertension chronic July 01, 2024 10:35am History of coronary artery stent placement February 14, 2007 resolved July 01 025 10:35am [facility] Work Phone: 1(405) 129-839204-03-2025 Evaluation note* Diagnosis Onset Date Resolution Status Admit Date Longstanding persistent atrial fibrillation acute July 01, 10:35am Essential (primary) hypertension chronic July 01, 2024 10:35am History of coronary artery stent placement February 14, 2007 resolved July 01, 025 10:35am Difficulty with speech acute Ju ne 2024 4:03pm [facility] Work Phone: 1(856) 450-836904-03-2025 Evaluation note* Diagnosis Onset Date Resolution Status Admit Date Longstanding persistent atrial fibrillation acute July 01, 025 10:35am Essential (primary) hypertension chronic July 01, 2024 10:35am History of coronary artery stent placement February 14, 2007 resolved July 01 025 10:35am Difficulty with speech acute Ju ne 2024 4:03pm 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 Work Phone: [phone]) [phone] Evaluation note* Diagnosis Onset Date Resolution Status Admit Date Longstanding persistent atrial fibrillation acute July 01, 2 025 10:35am Essential (primary) hypertension chronic July 01, 2024 10:35am History of coronary artery stent placement February 14, 2007 resolved July 01, 025 10:35am Difficulty with speech resolved 2024 4:03pm 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 2:04pm [facility] Work Phone: 1(764) 474-252702-10-2025 Evaluation note* Diagnosis Onset Date Resolution Status Admit Date Dementia acute May 10, 2024 2:34pm Epilepsy acute May 10, 2024 2:34pm Transient ischemic attack resolved May 10, 2024 2:34pm [facility] Work Phone: 1(700) 522-863602-10-2025 Evaluation note* Diagnosis Onset Date Resolution Status Admit Date Dementia acute May 10, 2024 2:34pm Epilepsy acute May 10, 2024 2:34pm Transient ischemic attack resolved May 10, 2024 2:34pm Longstanding persistent atrial fibrillation acute July 01, 025 10:35am Essential (primary) hypertension chronic July 01, 2024 10:35am History of coronary artery stent placement February 14, 2007 resolved July 01, 2024 10:35am [facility] Work Phone: 1(959) 194-709603-22-2024 NoteStart PACC Note Home Health Referral Educated patient on Home Care and services available. Patient offered choice of available HHC and agreeable to PT/OT services with [facility] - Home Care. Care [...] is noted as yes - consider a CAD ADMINISTRATOR evaluation once the patient returns home. START PATIENT REGISTRATION INFORMATION Order Information Order Signing Physician: Connie Perez APRN * Service Ordered RN ?: No Service Ordered PT ?: Yes Service Ordered OT ?: Yes Service Ordered ST ?: No Service Ordered CAD ADMINISTRATOR?:No Service Ordered PARALEGAL SUPERVISOR?: No Following Physician: ALEXANDRA HAGEN Following Physician Overseeing Physician: ALEXANDRA HAGEN (Required for Residents only) Agreeable to Follow? No Date/Time of Call 06/20/23 2:40 PM, Spoke with: LVM FOR OFFICE-CONFIRMED WITH JOSEP THIS IS HER PHYSICAN AND CAN SEE RECENT NOTES IN [facility] Care Coordination Same Day SOC?: No Primary Care Physician: ALEXANDRA HAGEN Primary Care Physician Primary Care Physician Address: [address] [place] [address] [address] / [facility] [address] Visit Instructions: N/A Service Discharge Location Type: Assisted Living Service Facility Name: [facility] Floor Facility: N/A Service Room No: 105 Demographics Patient Last Name: Lisa Patient First Name: Ezra Language/Communication Barrier: NONE Service Address: [address] [place] [address] [address] Service City: [facility] ST: [place] Service ZIP: [address] Service (home) Other phone numbers: No relevant phone numbers on file. Emergency Contact: Extended Emergency Contact Information Primary Emergency Contact: BereketPatito Mobile Relation: Son Stabilizing Machine Operator needed? No Secondary Emergency Contact: Ty [place] Mobile Relation: Son Admission Information Admit Date: 06/16/2023 Patient status at discharge: Inpatient Admitting Diagnosis: Closed displaced fracture of medial condyle of right humerus, initial encounter [S42.461A] Caregiver Information Caregiver First Name: NA Caregiver Last Name: NA Caregiver Relationship to Patient NA Caregiver Phone Number: NA Caregiver Notes: N/A Gly[employer]an-Tech List No END PATIENT REGISTRATION INFORMATION Pt [...] [facility] / E7-707/E7-707 A End [facility]03-22-[facility] History of Present illness Narrative* Juanjo Villalba RN - 06/20/2023 3:51 PM EDT Dc via [facility] with all belongings * Juanjo Villalba RN - 06/20/2023 3:01 PM EDT Called report to Maryanne hinesfranklin * Dc Lombardi - 06/20/2023 2:26 PM EDT [facility] Anticoagulation Management Service (RIA) Inpatient Warfarin Consult HPI: Ezra Gonzalez is a 87 y.o. female admitted on 06/16/2023 for Closed displaced fracture of medial condyle of right humerus, initial encounter [S42.607F] History reviewed. No pertinent past medical history. [...] patient can be classified as high risk ([id number] = 8). 2. Monitor for s/s of bleeding and drug interactions. Will adjust dose accordingly 3. RIA will manage while inpatient Dc Lombardi, PharmD Candidate Toshia Sanches, PharmD, BCPS RIA is available daily [phone] via [employer] Chat. If no response on [employer] Chat then please page [phone]. * Shayne Fonseca MD - 06/20/2023 6:05 [...] off at this time. Please page resident semiconductor wafers tester on Secure Chat with concerns or [...] original note were not included. PHYSICAL THERAPY [facility] Initial Evaluation Name/MRN: Ezra Gonzalez ([id number]) Evaluation Date: 06/19/2023 Date of : 1935 Admission Date: 06/16/2023 1:38 PM Age: 87 y.o. Room/Bed: E7-597/E7702 A Discharge Recommendation: Home with Home health PT (return to [place]) Equipment Needed: No Assessment IMPRESSION: 87 y.o. pt admitted to [facility] for closed fracture RUE, s/p ORIF R humerus 06/17. They were Min A for bed mobility, Min A for transfers, and Min A for ambulation. Pt limited d/t balance. If from [place] where she can receive Min A for all ADLs and mobility. Would recommend return to [place] and [facility] PTat discharge. Diagnosis: closed fracture RUE, [...] correction Ambulation Ambulation 1 Assistive device(s) used: PARALEGAL SUPERVISOR Assist level: Min Assist Distance (ft): 15' [...] of Care supervision is transferred to a [facility] Therapy Services Physical Therapist. Goals and/or treatment plan was established in collaboration with patient/family/other representatives. * Enedelia Sanches [facility] - 06/19/2023 1:50 PM EDT [facility] Anticoagulation Management Service (RIA) Inpatient Warfarin Consult HPI: Ezra Gonzalez is a 87 y.o. female admitted on 06/16/2023 for Closed displaced fracture of medial condyle of right humerus, initial encounter [S42.414S] History reviewed. No pertinent past medical history. [...] patient can be classified as high risk ([id number] = 8). 2. Monitor for s/s of bleeding and drug interactions. Will adjust dose accordingly 3. RIA will manage while inpatient Dc Lombardi, PharmD Candidate Toshia Sanches, PharmD, BCPS RIA is available daily [phone] via [employer] Chat. If no response on [employer] Chat then please page [phone]. * Kavon Diallo OT - 06/19/2023 11:54 AM EDT Images from the original note were not included. OCCUPATIONAL THERAPY [facility] Initial Evaluation Name/MRN: Ezra Gonzalez ([id number]) Evaluation Date: 06/19/2023 Date of : 1935 Admission Date: 06/16/2023 1:38 PM Age: 87 y.o. Room/Bed: [facility] A Discharge Recommendation: Continue to assess pending [...] of Care supervision is transferred to a [facility] Therapy Services Occupational Therapist. Goals and/or treatment plan was established in collaboration with patient/family/other representatives. * Connie Perez, SPECIAL NEEDS NANNY - 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 - 06/19/2023 9:52 AM EDT Images from [...] Emergency Contact: Patito [place] Mobile Relation: Son Stabilizing Machine Operator needed? No Secondary Emergency Contact: Ty [place] Mobile Relation: Son Connie Perez APRN - SUZI Division of Hospitalist Medicine Acute [facility] * Huma Tavarez MD - 06/19/2023 6:14 [...] be monitored and followed by the diet sterilisation technician. Ele Butcher DT * Louisa Cespedes OT - 06/18/2023 8:26 AM EDT Images from the original note were not included. OCCUPATIONAL THERAPY [facility] Name/MRN: Ezra Gonzalez ([id number]) Date: 06/18/2023 OT eval and treat order received. Patient chart reviewed. Per Ortho note, Plan for ORIF od R distal humerus. Will hold evaluation till after surgery. Louisa Cespedes OT * JANNETTE Hall CNP - 06/18/2023 8:00 AM EDT Images from the original note were not included. Hospitalist Progress Note 06/18/2023 Subjective: Admit Date: 06/16/2023 PCP: No primary care provider on file. Room#: E7-937/Z2-850 A BRIEF HOSPITAL COURSE: Ezra is a [...] Emergency Contact: Patito [place] Mobile Relation: Son Stabilizing Machine Operator needed? No Secondary Emergency Contact: Ty [place] Mobile Relation: Son Connie JANNETTE Perez CNP Division of Hospitalist Medicine Acute [facility] * Maryanne Neumann PT - 06/18/2023 7:27 AM EDT Images from the original note were not included. PHYSICAL THERAPY [facility] Name/MRN: Ezra Gonzalez ([id number]) Date: 06/18/2023 PT orders received and chart [...] tomorrow, 06/17. Ok for diet today. NPO @AR. Keep splint C/D/I. Evette Viera MD Orthopaedic Surgery, PGY-5 [phone] * Connie Perez, SPECIAL NEEDS NANNY - 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 - 06/17/2023 7:46 AM EDT Images from [...] Emergency Contact: Patito [place] Mobile Relation: Son Stabilizing Machine Operator needed? No Secondary Emergency Contact: Ty [place] Mobile Relation: Son JANNETTE Hall CNP [facility] * Shayne Fonseca MD - 06/17/2023 6:11 [...] + AIN/PIN/ulnar nerve functions documented in this [facility]03-22-2024 Miscellaneous Notes* Care Coordination - Unknown Case Management - 06/20/2023 2:58 PM EDT Patient Choice Patient Name: EZRA GONZALEZ Date of : 1935 All Providers Sent Referral Name: [facility] Phone: [phone] Address: [address] [place] [address] * Home Care - Vivian Bills RN - 06/20/2023 2:40 PM EDT Start PACC Note Home Health Referral Educated patient on Home Care and services available. Patient offered choice of available HHC and agreeable to PT/OT services with [facility] - Home Care. Care Types: [...] is noted as yes - consider a CAD ADMINISTRATOR evaluation once the patient returns home. START PATIENT REGISTRATION INFORMATION Order Information Order Signing Physician: Connie Perez APRN * Service Ordered RN ?: No Service Ordered PT ?: Yes Service Ordered OT ?: Yes Service Ordered ST ?: No Service Ordered CAD ADMINISTRATOR?:No Service Ordered PARALEGAL SUPERVISOR?: No Following Physician: ALEXANDRA HAGEN Following Physician Overseeing Physician: ALEXANDRA HAGEN (Required for Residents only) Agreeable to Follow? No Date/Time of Call 06/20/23 2:40 PM, Spoke with: LVM FOR OFFICE-CONFIRMED WITH FIDEKAMARI THIS IS HERPHYSICAN AND CAN SEE RECENT NOTES IN [facility] Care Coordination Same Day SOC?: No Primary Care Physician: ALEXANDRA HAGEN Primary Care Physician Primary Care Physician Address: [address] [place] [address] [address] / [facility] [address] Visit Instructions: N/A Service Discharge Location Type: Assisted Living Service Facility Name: [facility] Floor Facility: N/A Service Room No: 105 Demographics Patient Last Name: Lisa Patient First Name: Ezra Language/Communication Barrier: NONE Service Address: [address] [place] [address] [address] Service City: [facility] ST: [place] Service ZIP: [address] Service (home) Other phone numbers: No relevant phone numbers on file. Emergency Contact: Extended Emergency Contact Information Primary Emergency Contact: GillesrodriguePatito Mobile Relation: Son Stabilizing Machine Operator needed? No Secondary Emergency Contact: GillesrodrigueTy Mobile Relation: Son Admission Information Admit Date: 06/16/2023 Patient status at discharge: Inpatient Admitting Diagnosis: Closed displaced fracture of medial condyle of right humerus, initial encounter [S42.467M] Caregiver Information Caregiver First Name: NA Caregiver Last Name: NA Caregiver Relationship to Patient NA Caregiver Phone Number: NA Caregiver Notes: N/A Glycosan-ITM Software List No END PATIENT REGISTRATION INFORMATION Pt [...] pt order lunch. Notified TONIO, RN and decision unit rn. . * Care Coordination - Shikha Gray RN - 06/20/2023 11:01 AM EDT I SPOKE WITH DONOVAN, SENIOR FINANCIAL AT [facility]. THEY CAN TAKE PT BACK TODAY. THEY CAN PROVIDE TRANSPORTATION BACK TO FACILITY AROUND 3 PM. AWARE PT WILL NEED PT AT FACILITY, THEY USE [employer], DID LET HC LIAISON NOW. WENT TO [...] PM EDT Date: 06/16/2023 - 06/18/2023 Location: [facility] OR Name: Ezra Gonzalez, : 1935, Diagnosis Pre-op Diagnosis * Closed displaced fracture of medial condyle of right humerus, initial encounter [S42.501A] Post-op Diagnosis * Closed displaced fracture of medial condyle of right humerus, initial encounter [S42.461A] Procedures OPEN REDUCTION INTERNAL FIXATION RIGHT DISTAL HUMERUS 63899 - MA OPTX HUMERAL SHFT FX W/PLATE/SCREWS W/WOCERCLAGE Surgeons * Benitez Givens - Primary Procedure Summary Anesthesia: * No anesthesia type entered * ASA: III Estimated Blood Loss: Minimal Drains: * None in log * Staff: Anesthesia Resident: Vivian Herrera RN Scrub Person: Linda Alvarez [...] Limits Permission given to speak with patient telesales representative/caregiver as indicated: No Confirmation of Payer with patient/family: Yes Payer Name: [facility] : No Confirmation of Primary Care [...] rest and pain control documented in this [facility]03-22-2024 Note* Care Coordination - Unknown Case Management - 06/20/2023 2:58 PM EDT Patient Choice Patient Name: EZRA GONZALEZ Date of : 1935 All Providers Sent Referral Name: [facility] Phone: [phone] Address: [address] [place] [address] [facility] HospitalLgygoi83-06-3175 Note* Care Coordination - Unknown Case Management - 06/20/2023 2:58 PM EDT Patient Choice Patient Name: EZRA GONZALEZ Date of : 1935 All Providers Sent Referral Name: [facility] Phone: [phone] Address: [address] [place] [address] [facility] HospitalNohxbk16-52-4038 Note* Home Care - Vivian Bills RN - 06/20/2023 2:40 PM EDT Start PACC Note Home Health Referral Educated patient on Home Care and services available. Patient offered choice of available HHC and agreeable to PT/OT services with [facility] - Home Care. Care [...] is noted as yes - consider a CAD ADMINISTRATOR evaluation once the patient returns home. START PATIENT REGISTRATION INFORMATION Order Information Order Signing Physician: Connie Perez APRN * Service Ordered RN ?: No Service Ordered PT ?: Yes Service Ordered OT ?: Yes Service Ordered ST ?: No Service Ordered CAD ADMINISTRATOR?:No Service Ordered PARALEGAL SUPERVISOR?: No Following Physician: ALEXANDRA HAGEN Following Physician Overseeing Physician: ALEXANDRA HAGEN (Required for Residents only) Agreeable to Follow? No Date/Time of Call 06/20/23 2:40 PM, Spoke with: BRYAN FOR OFFICE-CONFIR[facility] THIS IS HERPHYSICAN AND CAN SEE RECENT NOTES IN [facility] Care Coordination Same Day SOC?: No Primary Care Physician: ALEXANDRA HAGEN Primary Care Physician Primary Care Physician Address: [address] [place] [address] [address] / [facility] [address] Visit Instructions: N/A Service Discharge Location Type: Assisted Living Service Facility Name: [facility] Floor Facility: N/A Service Room No: 105 Demographics Patient Last Name: Lisa Patient First Name: Ezra Language/Communication Barrier: NONE Service Address: [address] [place] [address] [address] Service City: [facility] ST: [place] Service ZIP: [address] Service (home) Other phone numbers: No relevant phone numbers on file. Emergency Contact: Extended Emergency Contact Information Primary Emergency Contact: Patito [place] Mobile Relation: Son Stabilizing Machine Operator needed? No Secondary Emergency Contact: Ty [place] Mobile Relation: Son Admission Information Admit Date: 06/16/2023 Patient status at discharge: Inpatient Admitting Diagnosis: Closed displaced fracture of medial condyle of right humerus, initial encounter [S41.266C] Caregiver Information Caregiver First Name: NA Caregiver Last Name: NA Caregiver Relationship to Patient NA Caregiver Phone Number: NA Caregiver Notes: N/A HITMeasureful Hi-Tech List No END PATIENT REGISTRATION INFORMATION [...] Hospital / E7-707/E7-707 A End PACC Note [id number] Note* Home Care - Vivian Bills RN - 06/20/2023 2:40 PM EDT Start PACC Note Home Health Referral Educated patient on Home Care and services available. Patient offered choice of available HHC and agreeable to PT/OT services with [facility] - Home Care. Care Types: [...] is noted as yes - consider a CAD ADMINISTRATOR evaluation once the patient returns home. START PATIENT REGISTRATION INFORMATION Order Information Order Signing Physician: Connie Perez APRN * Service Ordered RN ?: No Service Ordered PT ?: Yes Service Ordered OT ?: Yes Service Ordered ST ?: No Service Ordered CAD ADMINISTRATOR?:No Service Ordered PARALEGAL SUPERVISOR?: No Following Physician: ALEXANDRA HAGEN Following Physician Overseeing Physician: ALEXANDRA HAGEN (Required for Residents only) Agreeable to Follow? No Date/Time of Call 06/20/23 2:40 PM, Spoke with: BRYAN FOR OFFICE-CONFIRMED WITH JOSEP THIS IS HERPHYSICAN AND CAN SEE RECENT NOTES IN [facility] Care Coordination Same Day SOC?: No Primary Care Physician: ALEXANDRA HAGEN Primary Care Physician Primary Care Physician Address: [address] [facility] [address] / [facility] [address] Visit Instructions: N/A Service Discharge Location Type: Assisted Living Service Facility Name: [facility] Floor Facility: N/A Service Room No: 105 Demographics Patient Last Name: Lisa Patient First Name: Ezra Language/Communication Barrier: NONE Service Address: [address] [facility] [address] Service City: [facility] ST: [place] Service ZIP: [address] Service (home) Other phone numbers: No relevant phone numbers on file. Emergency Contact: Extended Emergency Contact Information Primary Emergency Contact: Patito [place] Mobile Relation: Son Stabilizing Machine Operator needed? No Secondary Emergency Contact: Ty [place] Mobile Relation: Son Admission Information Admit Date: 06/16/2023 Patient status at discharge: Inpatient Admitting Diagnosis: Closed displaced fracture of medial condyle of right humerus, initial encounter [S41.353O] Caregiver Information Caregiver First Name: NA Caregiver Last Name: NA Caregiver Relationship to Patient NA Caregiver Phone Number: NA Caregiver Notes: N/A Glycosan-Tech List No END PATIENT REGISTRATION INFORMATION Pt [...] Hospital / E7-707/E7-707 A End PACC Note [facility] HospitalFcusdx73-33-2167 NoteHospitalist Discharge Summary Ezra Gonzalez : 1935 [...] pt order lunch. Notified TONIO, RN and decision unit rn. . [facility] HospitalOqtmfg50-39-6373 Note* Care Coordination - SELINA Magaña - [...] pt order lunch. Notified TONIO, RN and decision unit rn. . [facility] HospitalVcpcrn55-67-4552 Note* Care Coordination - Shikha Gray RN - 06/20/2023 11:01 AM EDT I SPOKE WITH DONOVAN, SENIOR FINANCIAL AT [facility]. THEY CAN TAKE PT BACK TODAY. THEY CAN PROVIDE TRANSPORTATION BACK TO FACILITY AROUND 3 PM. AWARE PT WILL NEED PT AT FACILITY, THEY USE [employer], DID LET HC LIAISON NOW. WENT TO [...] CONNIE PEREZ REGARDING THIS. [facility] HospitalRyqmmw86-21-3868 Note* Care Coordination - Shikha Gray RN - 06/20/2023 11:01 AM EDT I SPOKE WITH DONOVAN, SENIOR FINANCIAL AT [facility]. THEY CAN TAKE PT BACK TODAY. THEY CAN PROVIDE TRANSPORTATION BACK TO FACILITY AROUND 3 PM. AWARE PT WILL NEED PT AT FACILITY, THEY USE [employer] [facility], DID LET HC LIAISON NOW. WENT [...] CONNIE PEREZ REGARDING THIS. [facility] HospitalAtyjmo23-82-5474 Hospital course Narrative* Connie Perez, JANNETTE - 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 - 06/20/2023 10:18 AM EDT Images from [...] as possible for a visit As needed [facility] Orthopedics Go to Appointment scheduled 06/26/23 at 10:[address] Givens. [address] [facility] Complexity of Follow up: [x] Moderate Complexity: follow up within 7-14 calendar days (15284) [] Severe Complexity: follow up within 7 calendar days (84372) Follow up Testing, Pending results or Referrals [...] Connie Perez APRN - SUZI Division [facility] Medicine [facility] 06/20/2023, 1:11 PM documented in this [facility]03-22-2024 [facility] Progress Note ASSESSMENT AND [...] off at this time. Please page resident semiconductor wafers tester on Secure Chat with concerns or [...] in all distributions -Motor function intact to AIN/PIN/[facility] Note PHYSICAL THERAPY [facility] Initial Evaluation Name/MRN: Ezra Gonzalez ([id number]) Evaluation Date: 06/19/2023 Date of : 1935 Admission Date: 06/16/2023 1:38 PM Age: 87 y.o. Room/Bed: E7-707/E7-707 A Discharge Recommendation: Home with Home health PT (return to [place]) Equipment Needed: No Assessment IMPRESSION: 87 y.o. pt admitted to [facility] for closed fracture RUE, s/p ORIF R humerus 06/17. They were Min A for bed mobility, Min A for transfers, and Min A for ambulation. Pt limited d/t balance. If from [place] where she can receive Min A for all ADLs and mobility. [facility] at discharge. Diagnosis: closed fracture [...] correction Ambulation Ambulation 1 Assistive device(s) used: PARALEGAL SUPERVISOR Assist level: Min Assist Distance (ft): 15' [...] Raw Score (No Stairs) : 18 [facility] Score: Walked 25 ft or more [...] EVALS FOR DC PLANNING. [facility] HospitalBltbvy42-27-0506 Note* Care Coordination - Shikha Gray RN - 06/19/2023 2:05 PM EDT DAY #1 S/P ORIF OF RIGHT ARM. WAITING FOR PT/OT EVALS FOR DC PLANNING. [facility] HospitalWrmrll50-07-1747 NoteOCCUPATIONAL THERAPY [facility] Initial Evaluation Name/MRN: Ezra Gonzalez ([id number]) Evaluation Date: 06/19/2023 Date of : 1935 Admission Date: 06/16/2023 1:38 PM Age: 87 y.o. Room/Bed: [facility]707/[facility] A Discharge Recommendation: Continue to assess pending [...] Expected End: 07/17/23 (more content not included)...[facility]03-21-2024 Note Hospitalist Progress Note 06/19/2023 Subjective: Admit Date: 06/16/2023 PCP: No primary care provider on file. Room#: E7-217/-168 A BRIEF HOSPITAL COURSE: Ezra is a [...] Eating and drinking fair, looking forward to [place]. Understands likely not back to [place] as [...] Dischar (more content not included)...[facility] 06-19-2023 [facility] Progress Note ASSESSMENT AND [...] and motor exam limited 2/2 block [facility] 06-18-2023 NotePatient: Ezra Gonzalez Procedure Summary Date: 06/18/23 Room / Location: [address] Operating Room Anesthesia Start: 1541 Anesthesia [...] Procedure Summary Date: 06/18/23 Room / Location: [address] Operating Room Anesthesia Start: 1541 Anesthesia [...] will call pt's son,. [facility] HospitalEkrhad63-35-4234 Note* Perioperative Nursing Note - Irina Khan RN - 06/18/2023 8:11 PM EDT Pt states no need to contact family. RN on floor states she will call pt's son,. [facility] HospitalZkprlq52-04-6211 NoteAirway Date/Time: 06/18/2023 3:56 PM Urgency: scheduled General Information and Staff Patient location during procedure: Procedural Resident/ASSOCIATE BIOLOGICAL SALES: Sae Lora CRNA Performed: ASSOCIATE BIOLOGICAL SALES Indications and Patient Condition Indications for airway [...] (cm): 21 Number of attempts at approach: [address] [place], [place] 4412603-20-2024 Note Peripheral IV Date/Time: 06/18/2023 4:00 PM Inserted by: JANNETTE Ivey CRNA Placement Needle size: 20 G Laterality: left Location: upper arm. Local anesthetic: none Site prep: alcohol Technique: ultrasound guided Attempts: [address] [place], [place] 4412603-20-2024 NotePeripheral Block Time Out: 06/18/2023 3:28 PM Patient location during procedure: Procedural Start time: 06/18/2023 3:28 PM End time: 06/18/2023 3:32 PM Reason for block: at surgeon's request and post-op pain management Staffing Performed: WAQAS Resident/ASSOCIATE BIOLOGICAL SALES: JANNETTE Ivey CRNA Preanesthetic Checklist Completed: patient [...] No paresthesias reported by patient during injectionMedications zhgONMXSlxgaf-etocncujdjb-evkjoyhkzsz (TAP) syringe - Injection 30 mL - 06/18/2023 3:28:00 [facility]03-20-2024 NotePatient: Ezra Gonzalez Procedure Information Date/Time: 06/18/23 1530 Procedure: OPEN REDUCTION INTERNAL FIXATION RIGHT DISTAL HUMERUS (Right: Arm Upper) - requesting 330, if can't go at 330 will consider friday Location: [facility] OR [address] [place] [address] Operating Room Surgeons: Benitez Givens MD Relevant [...] by: Thong Francois DO on 06/17/2023 6:[address] [facility] 06-18-2023 Hospital Discharge instructions* Discharge Instructions* [...] Emergency Contact: Patito Cuba Mobile Relation: Son Stabilizing Machine Operator needed? No Secondary Emergency Contact: Ty Cuba [...] (78.9 kg) Mental Status: {MITCHEL Patient Mental Status:93545} IV Access: {MITCHEL IV Access:93777} Nursing Mobility/ADLs: Walking {MALLY ADL:::Independent} Transfer {MALLY ADL:::Independent} Bathing {MALLY ADL:::Independent} Dressing {MALLY ADL:::Independent} Toileting {MALLY ADL:::Independent} Feeding {MALLY ADL:::Independent} Stuffing Machine Operator {MALLY ADL:::Independent} Med Delivery {yes/no:72214} Wound Care Documentation and Therapy: Wound/Incision 06/18/23 Incision Arm Anterior;Right;Upper (Active) Site Assessment Clean;Dry 06/19/232147 Treatments Sling 06/19/232147 Primary Dressing Xeroform 06/19/23 1024 Dressing Status Clean, dry & intact 06/19/232147 Number of days: 1 Elimination: Continence: Bowel: {yes/no:85868} Bladder: {yes/no:13100} Urinary Catheter: {MITCHEL Urinary Catheter:60434} Colostomy/Ileostomy/Ileal Conduit: {YES / NO:} Date of Last BM: No intake or output data in the 24 hours ending 06/20/23 1025 I/O last 3 completed shifts: In: 711 (9 mL/kg) [P.O.:280; I.V.:114 (1.4 mL/kg); IV Piggyback:317] Out: 600 (7.6 mL/kg) [Urine:350 (0.1 mL/kg/hr); Blood:250] Weight: 78.9 kg Safety Concerns: {MITCHEL Safety Concerns:71476} Impairments/Disabilities: {MITCHEL Impairments/Disabilities:95301} Nutrition Therapy: Current Nutrition Therapy: {MITCHEL Diet List:57666} Routes of Feeding: {routes of feedin} Liquids: {liquid consistency:28707} Daily Fluid Restriction: {daily fluid restriction:06634} Last Modified Barium Swallow with Video (Video Swallowing Test): {done not done:59299} Treatments at the Time of Hospital Discharge: Respiratory Treatments: Oxygen Therapy: {Therapy; copd oxygen:10265} Ventilator: {MITCHEL Ventilator:68043} Rehab Therapies: {GEN THERAPY DISCIPLINE SCAL:0902341} Weight Bearing Status/Restrictions: {POD WEIGHT BEARIN} Other Medical Equipment (for information only, NOT a DME order): {Assistive Devices DME:55799} Other Treatments: Patient's personal belongings (please select all that are sent with patient): {MITCHEL Patient Belongings:73619} RN SIGNATURE: {E-signature:98744} CASE MANAGEMENT/SOCIAL WORK SECTION Inpatient Status Date: 06/16/23 Readmission Risk Assessment Score: @READMISSIONRISKDETAILS@ Discharging to Facility/ Agency Discharging to Facility/ Agency Name: [facility] Address: [address] [place] [address] Name: [facility] Address:[address] [place] [address] ~28.4 ak Fax: Dialysis Facility (if applicable) Name: Address: Dialysis Schedule: Phone: Fax: [employer] Tr[employer]/Field Examiner signature: ICIAN SECTION Prognosis: good Condition at [...] in H&P PHYSICIAN SIGNATURE: documented in this [facility]03-20-2024 Note* Brief Op Note - Lexa Aparicio MD - 06/18/2023 3:42 PM EDT Date: 06/16/2023 - 06/18/2023 Location: [facility] OR Name: Ezra Gonzalez, : 1935, Diagnosis Pre-op Diagnosis * Closed displaced fracture of medial condyle of right humerus, initial encounter [S42.477D] Post-op Diagnosis * Closed displaced fracture of medial condyle of right humerus, initial encounter [S42.152R] Procedures OPEN REDUCTION INTERNAL FIXATION RIGHT DISTAL HUMERUS 94285 - MA OPTX HUMERAL SHFT FX W/PLATE/SCREWS W/WOCERCLAGE Surgeons * Benitez Givens - Primary Procedure Summary Anesthesia: * No anesthesia type entered * ASA: III Estimated Blood Loss: Minimal Drains: * None in log * Staff: Anesthesia Resident: Vivian Herrera RN Scrub Person: Linda Alvarez [...] Givens in 2 weeks -Ortho to follow. [employer] Work Phone: 1(742) 129-401603-20-2024 Note* Brief Op Note - Lexa Aparicio MD - 06/18/2023 3:42 PM EDT Date: 06/16/2023 - 06/18/2023 Location: [facility] OR Name: Ezra Gonzalez, : 1935, Diagnosis Pre-op Diagnosis * Closed displaced fracture of medial condyle of right humerus, initial encounter [S42.411X] Post-op Diagnosis * Closed displaced fracture of medial condyle of right humerus, initial encounter [S42.068Z] Procedures OPEN REDUCTION INTERNAL FIXATION RIGHT DISTAL HUMERUS 22045 - MA OPTX HUMERAL SHFT FX W/PLATE/SCREWS W/WOCERCLAGE Surgeons * Benitez Givens - Primary Procedure Summary Anesthesia: * No anesthesia type entered * ASA: III Estimated Blood Loss: Minimal Drains: * None in log * Staff: Anesthesia Resident: Vivian Herrera RN Scrub Person: Linda Alvarez [...] Givens in 2 weeks -Ortho to follow. [employer] Work Phone: 1(908) 700-581603-20-2024 Note* Perioperative Nursing Note - Deisy Gonzalez RN - 06/18/2023 3:29 PM EDT Patients wallet and watch locked up with security. OR notified patient states she has latex allergy Patients [facility] [id number] Note* Perioperative Nursing Note - Deisy Gonzalez RN - 06/18/2023 3:29 PM EDT Patients wallet and watch locked up with security. OR notified patient states she has latex allergy Patients purse and glasses [facility] pacu [facility] [id number] Note* Care Coordination - Shikha Gray RN - 06/18/2023 1:03 PM EDT Care Managment Initial Assessment Date: 06/18/2023 Patient Name: Ezra Gonzalez : 1935 Patient Information Source of Information: Patient Cognition/Language: WFL - Within Functional Limits Permission given to speak with patient telesales representative/caregiver as indicated: No Confirmation of Payer with patient/family: Yes Payer Name: [facility] : No Confirmation of Primary Care [...] Assistance Provider Meal Prep Assistance Provider Name: [facility] ST[facility] Laundry/Cleaning: Assistance Provider Laundry/Cleaning Assistance Provider [...] WILL CONTINUE TO FOLLOW. Shikha Gray RN [facility] [id number] Note* Care Coordination - Shikha Gray RN - 06/18/2023 1:03 PM EDT Care Managment Initial Assessment Date: 06/18/2023 Patient Name: Ezra Gonzalez : 1935 Patient Information Source of Information: Patient Cognition/Language: WFL - Within Functional Limits Permission given to speak with patient telesales representative/caregiver as indicated: No Confirmation of Payer with patient/family: Yes Payer Name: [facility] [place]: No Confirmation of Primary Care Physician: Confirmed [...] FOLLOW. Shikha Gray RN [facility] [id number] NoteHospitalist Progress Note 06/18/2023 Subjective: Admit Date: 06/16/2023 PCP: No primary care provider on file. Room#: E7-535/P8-400 A BRIEF HOSPITAL COURSE: Ezra is a [...] Emergency Contact: Patito Cuba Mobile Relation: Son Stabilizing Machine Operator needed? No Se (more content not included)...[facility] [...] rest and pain control [facility] [id number] Nurse Note* Yvan Sepulveda RN - 06/17/2023 9:22 PM EDT Patient home medication list updated, provider made aware. [facility] [id number] Nurse Note* Yvan Sepulveda RN - 06/17/2023 9:22 PM EDT Patient home medication list updated, provider made aware. documented in this [facility]03-19-2024 Emergency department Note* Di Reyna RN - 06/17/2023 11:52 AM EDT Patient resting in bed at this time, equal unlabored respirations noted and no acute distress, callbell within reach Di Reyna RN 06/17/[address] [facility] [id number] Emergency department Note* Di Reyna RN - [...] US IV line. Juanjo Pringle RN 06/16/23 6091 * NADIA Ruiz - 06/16/2023 12:38 PM EDT Images from the original note were not included. EMERGENCY DEPARTMENT ENCOUNTER Pt Name: Ezra Gonzalez Birthdate 1935 Date of evaluation: 06/16/2023 ED Provider: NADIA Ruiz CHIEF COMPLAINT Chief Complaint Patient presents with Arm Injury Pt arrives via physician's ambulance [facility] with complaints of right elbow fracture.Patient was [...] injury anywhere else. Patient was evaluated at [facility] emergency department prior to arrival and was noted to have a distal humerus fracture. Patient was transferred to [facility] ED for orthopedic consultation. Patient denies [...] Report Dictated on Electronically Signed By: Pastor Francicso MD Electronically Signed Date/Time: 06/16/2023 3:24 PM [...] Culture. Procedure Abnormality Status --------- ------ Complete Urinalysis[[id number]] Please view results for these tests on [...] right arm injury. Patient was seen at [facility] prior to arrival was noted to have a distal humerus fracture. Patient transferred to [facility] ED for orthopedic consultation. Nursing notes [...] screen, x-ray right elbow. CT head from [facility] -shows no signs of acute cranial abnormalities. CXR from [facility] ED prior to arrival -blunting of bilateral [...] 06/16/2023 12:38 PM EDT Emergency Department Encounter [facility] EMERGENCY DEPT Patient: Ezra Gonzalez : [...] [employer] Sae Conde MD 06/16/23 1627 documented in this [facility]03-19-2024 Emergency department Note* Alia Foster RN - 06/17/2023 10:00 AM EDT Pt O2 desaturating to mid 80s after receiving dilaudid IV. Pt placed on 2L NC and immediately back up to 95%. notified Alia Foster RN 06/17/[address] [facility] HospitalArzvvf65-75-4050 NoteHospitalist Progress Note 06/17/2023 Subjective: Admit Date: [...] [facility]. Since patient staying ortho [...] Emergency Contact: Patito Cuba Mobile Relation: Son Stabilizing Machine Operator needed? No Secondary Emergency Contact: Ty Cuba Mobile Relation: Son Connie Perez, JANNETTE - 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 Division of Hospitalist Medicine [facility]03-19-2024 NoteDepartment of Orthopedic Surgery Progress Note [...] US IV line. Juanjo Pringle RN 06/16/[address] [facility] HospitalDvszxl31-78-0047 NoteAttending History and Physical Admit Date: 06/16/2023 [...] [facility] not [facility]. Since patient staying ortho [...] Pain control am labs, (more content not included)...[facility]03-18-2024 History and physical note* Jayshree Cortez [...] Emergency Contact: Patito Cuba Mobile Relation: Son Stabilizing Machine Operator needed? No Secondary Emergency Contact: Ty Cuba Mobile Relation: Son Jayshree Cortez MD Division of Hospitalist Medicine [facility] [employer] Phone: [phone]) 988-337203-18-2024 History and physical note* Jayshree Cortez MD [...] does not [facility]. Since patient staying ortho [...] Emergency Contact: Patito Cuba Mobile Relation: Son Stabilizing Machine Operator needed? No Secondary Emergency Contact: Ty Cuba Mobile Relation: Son Jayshree Cortez MD Division of Hospitalist Medicine [facility] documented in this [facility]03-18-2024 Physician Emergency department Note* NADIA Ruiz - 06/16/2023 12:38 PM EDT Images from the original note were not included. EMERGENCY DEPARTMENT ENCOUNTER Pt Name: Ezra Gonzalez Birthdate 1935 Date of evaluation: 06/16/2023 ED Provider: NADIA Ruiz CHIEF COMPLAINT Chief Complaint Patient presents with Arm Injury Pt arrives via physician's ambulance [facility] with complaints of right elbow fracture.Patient was [...] injury anywhere else. Patient was evaluated at [facility] emergency department prior to arrival and was noted to have a distal humerus fracture. Patient was transferred to [facility] ED for orthopedic consultation. Patient denies [...] Culture. Procedure Abnormality Status --------- ------ Complete Urinalysis[[id number]] Please view results for these tests on [...] right arm injury. Patient was seen at [facility] prior to arrival was noted to have a distal humerus fracture. Patient transferred to [facility] ED for orthopedic consultation. Nursing notes [...] screen, x-ray right elbow. CT head from [facility] -shows no signs of acute cranial abnormalities. CXR from [facility] prior to arrival -blunting of bilateral [...] signed) Emergency Medicine Provider NADIA Ruiz 06/16/[address] [facility] HospitalZxwwta38-10-0522 Physician Emergency department Note* Sae Conde MD - 06/16/2023 12:38 PM EDT Emergency Department Encounter [facility] EMERGENCY DEPT Patient: Ezra Gonzalez : [...] for clarification.) Sae Conde MD Acute Care [facility] Sae Conde MD 06/16/23 1626 [employer] Phone: 1(676) 652-456809-30-2023 Discharge summary Author Lali Pimentel [facility] December 27, 2022 10:31pm Note Date/Time December 27, 2022 3:52pm [facility] Medical Records Department [address] [place] [address] Emergency Department Summary 12/27/22 MR#: [id number] Acct: [id number] Name: EZRA GONZALEZ Rep #:[id number] : 1935 87 From: Lali Pimentel MD PCP: Dr. Rosemary Doran MD Status:ADM MARIELOS Location: [place] [address] HPI History of Present Illness Chief Complaint: [...] repeat a phrase her speech is garbled. 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 Neurology from [facility] felt that the patient should be [...] Provider] - Disposition Disposition: Acute Care Hospital [facility] What to do if you have Problems For any increased pain, shortness of breath, bleeding, nausea or vomiting, chestpain, or any unexpected problems, contact your Primary Care Provider. Call tracx Registry ([phone]) or report to the closest Emergency Room. Call 911 if necessary. 12/27/222230 <Electronically signed by Lali Pimentel MD> Cosigner Signature (if applicable): CC: Dr. Rosemary Doran MD ~ Signed [place] [facility] Work Phone: 1(694) 701-724809-29-2023 History and physical note Author Lynn Horn [facility] December 27, 2022 6:54pm Note Date/Time December 27, 2022 5:12pm [facility] Medical Records Department [address] [place] [address] H&P Exam - Hospitalist 12/27/22 1709 MR#: [id number] Acct: [id number] Name: EZRA GONZALEZ Rep #:[id number] : 1935 87 From: Lynn Horn DO PCP: Dr. Rosemary Doran MD Status:ADM MARIELOS Location: [place] [address] HPI - General General Date of Admission: 12/27/22 Date of Service: 12/27/22 Chief Complaint: Speech abnormalities HPI Narrative EZRA GONZALEZ, is a 87 F who presented to the emergency department at [facility] on 12/27/2022 with speech abnormalities that started after 1 PM this afternoon. She resides at [facility]. 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 Rosemary Doran MD; Dr. Lynn Horn DO~ Signed [facility] Work Phone: 1([phone]) 200-256409-14-2023 Discharge summary Author María Crane [facility] December 12, 2022 1:40pm Note Date/Time December 12, 2022 1:40pm [facility] Physical Therapy [facility] [address] [place] [address] / REHABILITATION SERVICES DISCHARGE SUMMARY MR#: [id number] Acct: [id number] Name: EZRA GONZALEZ Rep #: [id number] : 1935 87 From: María MATTSON T Referring Dr.: Dr. Anant Juarez MD Status: REG [facility] Insurance: [employer] [place] [id number] SELF PAY INSURANCE Patient Information Patient Information: [...] Dr. Anant Juarez MD ~ ELR Signed [facility] Work Phone: [phone]) 848-210211-17-2007 Evaluation note* Diagnosis Onset Date Resolution Status Chronic diastolic (congestive) heart failure chronic Essential (primary) hypertension chronic Paroxysmal atrial fibrillation chronic History of coronary artery stent placement February 142006 resolved [facility] Work Phone: 1(896) 998-542011-17-2007 Evaluation note* Diagnosis Onset Date Resolution Status Chronic diastolic (congestive) heart failure chronic Essential (primary) hypertension chronic History of coronary artery stent placement February 142006 resolved Brain TIA resolved Carotid stenosis acute Difficulty with speech acute Dysarthria resolved Polyneuropathy acute [facility] Work Phone: [phone]) 993-864411-17-2007 Evaluation note* Diagnosis Onset Date Resolution Status Chronic diastolic (congestive) heart failure chronic Essential (primary) hypertension chronic History of coronary artery stent placement February 142006 resolved Brain TIA resolved Carotid stenosis acute Difficulty with speech acute Dysarthria resolved Abnormality of gait and mobility acute Carotid stenosis acute Dementia acute Polyneuropathy acute Transient ischemic attack re solved [facility] Work Phone: [phone]) 700-518111-17-2007 Evaluation note* Diagnosis Onset Date Resolution Status Longstanding persistent atrial fibrillation acute Essential (primary) hypertension chronic History of coronary artery stent placement February 142006 resolved Dementia acute Epilepsy acute Polyneuropathy acute Transient ischemic attack re solved [facility] Work Phone: Consult note Author Kvng Carney [facility] June 16, 2023 10:15am Note Date/Time June 16, 2023 10: 14am [facility] Medical Records Department [address] [place] [address] Consultation - Orthopedics 06/16/23 1012 MR#: [id number] Acct: [id number] Name: EZRA GONZALEZ Rep #:[id number] : 1935 87 From: Kvng Carney MD PCP: Dr. Rosemary Doran MD Status:REG ER Location: ED HPI Consult Data Date of Consult: 06/16/23 HPI Narrative HPI Narrative: EZRA GONZALEZ, is a 87 F who presents with a right distal humerus fracture. Patient apparently is in custodial there a fall. According to the ED physician Dr. Mack who called me today this is a closed neurovascularly intact injury. 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 Rosemary Doran MD~ Signed [facility] Work Phone: Discharge summary Author Neri Mitchell [facility] November 14, 2022 11:57am Note Date/Time November 14, 2022 11 :10am [facility] Medical Records Department [address] [place] [address] Emergency Department Summary 11/14/22 MR#: [id number] Acct: [id number] Name: EZRA GONZALEZ Rep #:[id number] : 1935 87 From: Neri Mitchell MD [...] is on warfarin has history of TIAs. 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 N.B. : The above Results were Read Back by Ban Avila MD to Neri Mitchell MD, and understanding confirmed on 11/14/2022 11:41:26 (ET). Electronically Signed: Ban Avila MD at 11:41 EDT , ADDENDUM: 11/14/22 1148 IMPRESSION: No evidence for significant stenosis or occlusion in the carotid or vertebral arteries of the neck. No evidence for large vessel occlusion the [place] region. N.B. : The above [...] Fibrillation Management Discussion w/another healthcare provider: Hospitalist, Aids Nurse (Stroke neurology Dr. Tamez) and Radiologist (At 1121 for NCCT, negative for bleed) Stroke Documentation Questions Stroke Team Activated: Yes Critical Care Time Critical Care Time: Yes Critical care time (excluding procedures): 30-74 minutes (37 min), Including time spent:, Discussing w/Patient &/or Family/Bandmill Operator, Discussing w/Consultants, Arranging Admission or Transfer and Performing Direct Patient Care at Bedside Discharge Plan Dx/Rx/DC Orders Clinical Impression: Brain TIA, Paroxysmal atrial fibrillation, Subtherapeutic international normalized ratio (INR) Disposition Disposition: Acute Care Hospital [facility] What to do if you have Problems For any increased pain, shortness of breath, bleeding, nausea or vomiting, chestpain, or any unexpected problems, contact your Primary Care Provider. Call [facility] Registry ([phone]) or report to the closest Emergency Room. Call 911 if necessary. 11/14/22 1157 <Electronically signed by Neri Mitchell MD> Cosigner Signature (if applicable): CC: Dr. Rosemary Doran MD ~ Signed [facility] Work Phone: Discharge summary Author Sae Carballo [facility] December 28, 2022 11:09am Note Date/Time December 28, 2022 11:08am [facility] Medical Records Department [address] [place] [address] Instructions for Home/Discharge Instructions 12/28/221106 MR#: [id number] Acct: [id number] Name: EZRA GONZALEZ Rep #:[id number] : 1935 87 From: Sae fleming MD [...] MD; Dr. 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 Chronic diastolic (congestive) heart failure chronic Essential (primary) hypertension chronic Hyperlipidemia chronic Paroxysmal atrial fibrillation chronic [facility] Work Phone: Evaluation note* Diagnosis Onset Date Resolution Status Abnormality of gait and mobility acute Carotid stenosis acute Dementia acute Polyneuropathy acute Transient ischemic attack re solved [facility] Work Phone: Evaluation note* Diagnosis Onset Date Resolution Status Abnormality of gait and mobility acute Carotid stenosis acute Dementia acute Polyneuropathy acute Transient ischemic attack re solved Chronic diastolic (congestive) heart failure chronic Essential (primary) hypertension chronic Paroxysmal atrial fibrillation chronic History of coronary artery stent placement February 142006 resolved [facility] Work Phone: Evaluation note* Diagnosis Onset Date Resolution Status Abnormality of gait and mobility acute Carotid stenosis acute Dementia acute Polyneuropathy acute Transient ischemic attack re solved Chronic diastolic (congestive) heart failure chronic Essential (primary) hypertension chronic Paroxysmal atrial fibrillation chronic History of coronary artery stent placement February 142006 resolved Brain TIA acute Subtherapeutic international normalized ratio (INR) acute Paroxysmal atrial fibrillation [facility] Work Phone: Evaluation note* Diagnosis Onset Date Resolution Status Abnormality of gait and mobility acute Carotid stenosis acute Dementia acute Polyneuropathy acute Transient ischemic attack re solved Chronic diastolic (congestive) heart failure chronic Essential (primary) hypertension chronic History of coronary artery stent placement February 142006 resolved Brain TIA resolved Carotid stenosis acute [facility] Work Phone: Evaluation note* Diagnosis Onset Date Resolution Status Abnormality of gait and mobility acute Carotid stenosis acute Dementia acute Polyneuropathy acute Transient ischemic attack re solved Chronic diastolic (congestive) heart failure chronic Essential (primary) hypertension chronic History of coronary artery stent placement February 142006 resolved Brain TIA resolved Carotid stenosis acute Difficulty with speech acute Dysarthria acute [facility] Work Phone: Evaluation note* Diagnosis Onset Date Resolution Status Brain TIA resolved Carotid stenosis acute Difficulty with speech acute Dysarthria resolved Abnormality of gait and mobility acute Carotid stenosis acute Dementia acute Polyneuropathy acute Transient ischemic attack re solved [facility] Work Phone: Evaluation note* Diagnosis Onset Date Resolution Status Dementia acute Epilepsy acute Polyneuropathy acute Transient ischemic attack re solved [facility] Work Phone: Evaluation note* Diagnosis Onset Date Resolution Status Dementia acute Epilepsy acute Polyneuropathy acute Transient ischemic attack re solved Longstanding persistent atrial fibrillation acute Essential (primary) hypertension chronic History of coronary artery stent placement February 142006 resolved Dementia acute Epilepsy acute Polyneuropathy acute Transient ischemic attack re solved [facility] Work Phone: Evaluation note* Diagnosis Closed displaced fracture of medial condyle of right humerus, initial encounter- Primary Closed displaced fracture of medial condyle of right humerus, initial encounter documented [facility] Dis[facility] instructions Additional Instructions Your work-up today does not show signs of heart attack or heart damage. Your Coumadin level/INR is therapeutic at 2.7. Please follow-up with your family doctor for repeat evaluation or return to the ER if you have any further concerns[facility] Work Phone: Hospital Discharge instructionsAmbulatory Orders* Physical Therapy Referral Location: None Selected [facility] Work Phone: Hospital Discharge instructions Additional Instructions Will need to follow-up Lamictal level since it is a send out. Recommend follow- up appointment with her neurologist Dr. JuarezWS[facility] Work Phone: Reason for referral (narrative)No reason for referral information availableWSumma Health [facility] Work Phone: Summary Purpose Family History No Family History Records Found Relationship Condition Age at Onset Recorded Date/T maggy father Coronary artery disease Unknown brother Coronary artery disease Unknown Advance Directives No Advanced Directives Records Found Advance Directive Response Recorded Date/ Time Advance Directives Yes November 10:13am Living Will No February 11 12:11am Power of Ticket Writer No February 11, 2022 12:11am Advance Directive Response Recorded Date/ Time Advance Directives Yes November 11:13am Living Will No February 11, 2 022 1:11am Power of Ticket Writer No February 11, 2022 1:11am Advance Directive Response Recorded Date/ Time Advance Directives Yes November 11:13am Living Will No September 08, 2022 3:33pm Power of Ticket Writer No September 08 3:33pm Advance Directive Response Recorded Date/ Time Advance Directives Yes November 11:13am Living Will No November 14 11:07am Power of Ticket Writer No November 14, 2 023 11:07am Advance Directive Response Recorded Date/ Time Name of Medical Power of Ticket Writer Ty nguyen November 18, 2022 7:55am Advance Directives Yes November 11:13am Living Will Yes November 18 7:55am Power of Ticket Writer Yes November 18 023 7:55am Name of Medical Power of Ticket Writer Wilfredo [place] November 14, 2022 1:26pm Advance Directive Response Recorded Date/ Time Name of Medical Power of Ticket Writer Ty nguyen November 18, 2022 7:55am Name of Medical Power of Ticket Writer Wilfredo [place] November 14, 2022 1:26pm Advance Directives Yes November 11:13am Living Will No December 27, 2022 7:16pm Power of Ticket Writer No November 7:16pm Advance Directive Response Recorded Date/ Time Name of Medical Power of Ticket Writer Ty nguyen November 18, 2022 6:55am Name of Medical Power of Ticket Writer Wilfredo [place] November 14, 2022 12:26pm Advance Directives Yes November 10:13am Living Will No December 27, 2022 6:16pm Power of Ticket Writer No November 6:16pm Advance Directive Response Recorded Date/ Time Advance Directives Yes November 10:13am Living Will No December 27, 2022 6:16pm Power of Ticket Writer No November 6:16pm Advance Directive Response Recorded Date/ Time Name of Medical Power of Ticket Writer SON--JACK June 16, 2023 8:32am Advance Directives Yes November 11:13am Living Will Yes June 16, 2023 8:32am Power of Ticket Writer Yes June 15 8:32am Latest Code Status on File Code Status Date Activated Date Inactivated Comments Full Code 06/16/2023 4:39 PM 06/20/2023 7:46 PM Advance Directive Response Recorded Date/ Time Living Will Yes June 16, 2023 7:32am Power of Ticket Writer Yes June 15 7:32am Advance Directives Yes November 10:13am Advance Directive Response Recorded Date/ Time Living Will Yes June 16, 2023 8:32am Do you have a Healthcare Power of Ticket Writer? Yes June 16, 2023 8:32am Advance Directives Yes November 11:13am Advance Directive Response Recorded Date/ Time Living Will No December 27, 2022 7:16pm Do you have a Healthcare Power of Ticket Writer? No December 27, 2022 7:16pm Living Will Yes June 16, 2023 8:32am Do you have a Healthcare Power of Ticket Writer? Yes June 16, 2023 8:32am Advance Directives Yes November 11:13am Advance Directive Response Recorded Date/ Time Living Will No December 27, 2022 7:16pm Do you have a Healthcare Power of Ticket Writer? No December 27, 2022 7:16pm Do you have a Healthcare Power of Ticket Writer? Yes September 08, 2024 12:26pm Advance Directives Yes November 11:13am Advance Directive Response Recorded Date/ Time Living Will No December 27, 2022 7:16pm Do you have a Healthcare Power of Ticket Writer? No December 27, 2022 7:16pm Do you have a Healthcare Power of Ticket Writer? Yes September 10, 2024 5:17pm Do you have a Healthcare Power of Ticket Writer? 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 EORDER FOR LABS FROM DR JUAREZ Consult Reason for Visit Abnormality of gait and mobility Carotid stenosis Dementia Polyneuropathy Transient ischemic attack Chief Complaint TIA SYMPTOMS, HX OF DM, AFIB confusion intermediate (current) use 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 EORDER FOR LABS FROM DR JUAREZ Consult LEFT ICA STENOSIS Reason for Visit Abnormality of gait and mobility Carotid stenosis Dementia Polyneuropathy Transient ischemic attack Chief Complaint TIA SYMPTOMS, HX OF DM, 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 EORDER FOR LABS FROM DR JUAREZ Consult LEFT ICA STENOSIS 6 M FU W ACRYLIC FABRICATOR per ACRYLIC FABRICATOR GAIT,POLYNEUROPATHY,LUMBAR COMPRESSION FX/RX HERE GAIT DISORDER Reason for Visit Abnormality of gait and mobility Carotid stenosis Dementia Polyneuropathy Transient ischemic attack Chronic diastolic (congestive) heart failure Essential (primary) hypertension Paroxysmal atrial fibrillation History of coronary artery stent placement Chief Complaint TIA SYMPTOMS, HX 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, 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 FOR LABS FROM DR JUAREZ Consult LEFT ICA STENOSIS 6 M FU W ACRYLIC FABRICATOR per ACRYLIC FABRICATOR GAIT,POLYNEUROPATHY,LUMBAR COMPRESSION FX/RX HERE GAIT DISORDER TIA Reason for Visit Abnormality of gait and mobility Carotid stenosis Dementia Polyneuropathy Transient ischemic attack Chronic diastolic (congestive) heart failure Essential (primary) hypertension Paroxysmal atrial fibrillation History of coronary artery stent placement Brain TIA Subtherapeutic international normalized ratio (INR) Paroxysmal atrial fibrillation Chief Complaint TIA SYMPTOMS, HX OF DM, 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 FOR LABS FROM DR JUAREZ Consult LEFT ICA STENOSIS 6 M FU W ACRYLIC FABRICATOR per ACRYLIC FABRICATOR GAIT,POLYNEUROPATHY,LUMBAR COMPRESSION FX/RX HERE GAIT DISORDER TIA TIA (cardiology) TIA (cardiology) tia Reason for Visit Abnormality of gait and mobility Carotid stenosis Dementia Polyneuropathy Transient ischemic attack Chronic diastolic (congestive) heart failure Essential (primary) hypertension Paroxysmal atrial fibrillation History of coronary artery stent placement Brain TIA Subtherapeutic international normalized ratio (INR) Paroxysmal atrial fibrillation Chief Complaint TIA SYMPTOMS, HX OF DM, 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 FOR LABS FROM DR JUAREZ Consult LEFT ICA STENOSIS 6 M FU W ACRYLIC FABRICATOR per ACRYLIC FABRICATOR GAIT,POLYNEUROPATHY,LUMBAR COMPRESSION FX/RX HERE GAIT DISORDER TIA TIA (cardiology) TIA (cardiology) tia [facility] WORK CONSULT-CAROTID STENOSIS Reason for Visit Abnormality of gait and mobility Carotid stenosis Dementia Polyneuropathy Transient ischemic attack Chronic diastolic (congestive) heart failure Essential (primary) hypertension History of coronary artery stent placement Brain TIA Carotid stenosis Chief Complaint TIA SYMPTOMS, HX OF DM, AFIB confusion intermediate (current) use 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 EORDER FOR LABS FROM DR JUAREZ Consult LEFT ICA STENOSIS 6 M FU W ACRYLIC FABRICATOR per ACRYLIC FABRICATOR GAIT,POLYNEUROPATHY,LUMBAR COMPRESSION FX/RX HERE GAIT DISORDER TIA TIA (cardiology) TIA (cardiology) tia [facility] LAB WORK CONSULT-CAROTID STENOSIS LABWORK [facility] LABWORK Reason for Visit Abnormality of gait and mobility Carotid stenosis Dementia Polyneuropathy Transient ischemic attack Chronic diastolic (congestive) heart failure Essential (primary) hypertension History of coronary artery stent placement Brain TIA Carotid stenosis Chief Complaint TIA SYMPTOMS, HX OF DM, AFIB confusion intermediate (current) use 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 EORDER FOR LABS FROM DR JUAREZ Consult LEFT ICA STENOSIS 6 M FU W ACRYLIC FABRICATOR per ACRYLIC FABRICATOR GAIT,POLYNEUROPATHY,LUMBAR COMPRESSION FX/RX HERE GAIT DISORDER TIA TIA (cardiology) TIA (cardiology) tia [facility] LAB WORK CONSULT-CAROTID STENOSIS LABWORK [facility] LABWORK DYARTHRIA DYARTHRIA Reason for Visit Abnormality of gait and mobility Carotid stenosis Dementia Polyneuropathy Transient ischemic attack Chronic diastolic (congestive) heart failure Essential (primary) hypertension History of coronary artery stent placement Brain TIA Carotid stenosis Difficulty with speech Dysarthria Chief Complaint LEFT ICA STENOSIS 6 M FU W ACRYLIC FABRICATOR per ACRYLIC FABRICATOR GAIT,POLYNEUROPATHY,LUMBAR COMPRESSION FX/RX HERE GAIT DISORDER TIA TIA (cardiology) TIA (cardiology) tia [facility] LAB WORK CONSULT-CAROTID STENOSIS LABWORK [facility] LABWORK DYARTHRIA DYARTHRIA DYARTHRIA [facility] LABWORK 4 month f/u EORDER Reason for Visit Chronic diastolic (c ongestive) heart failure Essential (primary) hypertension History of coronary artery stent placement Brain TIA Carotid stenosis Difficulty with speech Dysarthria Polyneuropathy Chief Complaint 6 M FU W ACRYLIC FABRICATOR per ACRYLIC FABRICATOR GAIT,POLYNEUROPATHY,LUMBAR COMPRESSION FX/RX HERE GAIT DISORDER TIA TIA (cardiology) TIA (cardiology) tia [facility] LAB WORK CONSULT-CAROTID STENOSIS LABWORK [facility] LABWORK DYARTHRIA DYARTHRIA DYARTHRIA [facility] LABWORK 4 month f/u EORDER Reason for Visit Chronic diastolic (c ongestive) heart failure Essential (primary) hypertension History of coronary artery stent placement Brain TIA Carotid stenosis Difficulty with speech Dysarthria Abnormality of gait and mobility Carotid stenosis Dementia Polyneuropathy Transient ischemic attack Chief Complaint TIA TIA (cardiology) TIA (cardiology) tia [facility] WORK CONSULT-CAROTID STENOSIS LABWORK [facility] LABWORK DYARTHRIA DYARTHRIA DYARTHRIA [facility] LABWORK 4 month f/u EORDER [facility] LABWORK Reason for Visit Brain TIA Carotid stenosis Difficulty with speech Dysarthria Abnormality of gait and mobility Carotid stenosis Dementia Polyneuropathy Transient ischemic attack Chief Complaint [facility] LABWORK 4 month f/u EORDER [facility] LABWORK FPC LAB WORK FPC LABWORK Reason for Visit Dementia Epilepsy Polyneuropathy Transient ischemic attack Chief Complaint 4 month f/u EORDER [facility] LABWORK [facility]PC LAB WORK FPC LAB WORK [facility] LABWORK 7 m fu 4 month f/u Reason for Visit Dementia Epilepsy Polyneuropathy Transient ischemic attack Longstanding persistent atrial fibrillation Essential (primary) hypertension History of coronary artery stent placement Dementia Epilepsy Polyneuropathy Transient ischemic attack Chief Complaint [facility] LABWORK FPC LAB WORK FPC LAB WORK FPC LABWORK LABWORK 7 m fu 4 month f/u LABWORK Reason for Visit Longstanding persist ent atrial fibrillation Essential (primary) hypertension History of coronary artery stent placement Dementia Epilepsy Polyneuropathy Transient ischemic attack Chief Complaint [facility] LABWORK FPC LAB WORK FPC LAB WORK FPC LABWORK LABWORK 7 m fu 4 month f/u LABWORK FALL FALL Reason for Visit Longstanding persist ent atrial fibrillation Essential (primary) hypertension History of coronary artery stent placement Dementia Epilepsy Polyneuropathy Transient ischemic attack Chief Complaint [facility]PC LAB WOR K [facility] LAB WORK FPC LABWORK LABWORK 7 m fu 4 month f/u LABWORK FALL FALL LABWORK Reason for Visit Longstanding persist ent atrial fibrillation Essential (primary) hypertension History of coronary artery stent placement Dementia Epilepsy Polyneuropathy Transient ischemic attack Chief Complaint Admit Date [facility] LAB WORK February 05, 2024 5:00am [facility] LAB WORK March 04, 2024 5:00am [facility] LAB WORK March 08, 2024 5:00am [facility] LAB WORK March 10 4:00am LABWORK March 17, 2024 5:00am LABWORK March 19, 2024 5:00am LABWORK March 25, 2024 5:00am [facility] LAB WORK March 26 5:00am [facility] LAB WORK March 29 5:00am [facility] LAB WORK April 05, 2024 5:00am [facility] LAB WORK April 06, 2024 5:00am LABWORK April 09, 2024 5 :00am [facility] LAB WORK April 14, 2024 4:00am [facility] LAB WORK April 28, 2024 5:00am LABWORK May 05, 2024 5 :00am 8 mo fu May 10, 2024 2:34pm [facility] LAB WORK May 19 5:00am Reason for Visit Admit Date Dementia May 10, 2024 2:34pm Epilepsy May 10, 2024 2:34pm Transient ischemic attack May 10, 2024 2:34pm Chief Complaint Admit Date [facility] LAB WORK March 04, 2024 5:00am [facility] LAB WORK March 08, 2024 5:00am [facility] LAB WORK March 10 4:00am LABWORK March 17, 2024 5:00am LABWORK March 19, 2024 5:00am LABWORK March 25, 2024 5:00am [facility] LAB WORK March 26 5:00am [facility] LAB WORK March 29 5:00am [facility] LAB WORK April 05, 2024 5:00am [facility] LAB WORK April 06, 2024 5:00am LABWORK April 09, 2024 5 :00am [facility]PC LAB WORK April 14, 2024 4:00am [facility] LAB WORK April 28, 2024 5:00am LABWORK May 05, 2024 5 :00am 8 mo fu May 10, 2024 2:34pm [facility] LAB WORK May 12 5:00am [facility] LAB WORK May 19 5:00am [facility] LAB WORK June 09, 2024 5 :00am Chief Complaint Admit Date [facility] LAB WORK March 10 4:00am LABWORK March 17, 2024 5:00am LABWORK March 19, 2024 5:00am LABWORK March 25, 2024 5:00am [facility] LAB WORK March 26 5:00am [facility] LAB WORK March 29 5:00am [facility] LAB WORK April 05, 2024 5:00am [facility] LAB WORK April 06, 2024 5:00am LABWORK April 09, 2024 5 :00am [facility] LAB WORK April 14, 2024 4:00am [facility] LAB WORK April 28, 2024 5:00am LABWORK May 05, 2024 5 :00am 8 mo fu May 10, 2024 2:34pm [facility] LAB WORK May 12 5:00am [facility] LAB WORK May 19 5:00am [facility] LAB WORK June 09, 2024 5 :00am [facility] LAB WORK June 16, 2024 5 :00am [...] Admit Date LABWORK March 25, 2024 5:00am [facility] LAB WORK March 26 5:00am [facility] LAB WORK March 29 5:00am [facility] LAB WORK April 05, 2024 5:00am [facility] LAB WORK April 06, 2024 5:00am LABWORK April 09, 2024 5 :00am [facility] LAB WORK April 14, 2024 4:00am [facility] LAB WORK April 28, 2024 5:00am LABWORK May 05, 2024 5 :00am 8 mo fu May 10, 2024 2:34pm [facility] LAB WORK May 12 5:00am [facility] LAB WORK May 19 5:00am [facility] LAB WORK June 09, 2024 5 :00am [facility] LAB WORK June 16, 2024 5 :00am 1 Y FU July 01, 2024 10:3 5am [facility] LAB WORK July 19, 2024 4 :00am Chief Complaint Admit Date [facility] LAB WORK May 12 5:00am [facility] LAB WORK May 19 5:00am [facility] LAB WORK June 09, 2024 5 :00am [facility] LAB WORK June 16, 2024 5 :00am 1 Y FU July 01, 2024 10:3 5am [facility] LAB WORK July 19, 2024 4 :00am [facility] LAB WORK August 18, 2024 5:0 0am SEIZURE September 08, 2024 12:2 0pm Reason for Visit Admit Date Longstanding persistent atrial fibrillat ion July 01, 2024 10:35am Essential (primary) hypertension July 012024 10:35am History of coronary artery stent placeme nt July 01, 2024 10:35am Chief Complaint Admit Date [facility] LAB WORK May 19 5:00am [facility] LAB WORK June 09, 2024 5 :00am [facility] LAB WORK June 16, 2024 5 :00am 1 Y FU July 01, 2024 10:3 5am [facility] LAB WORK July 19, 2024 4 :00am [facility] LAB WORK August 18, 2024 5:0 0am SEIZURE September 08, 2024 12:2 0pm Chief Complaint Admit Date [facility] LAB WORK May 19 5:00am [facility] LAB WORK June 09, 2024 5 :00am [facility] LAB WORK June 16, 2024 5 :00am 1 Y FU July 01, 2024 10:3 5am [facility] LAB WORK July 19, 2024 4 :00am [facility] LAB WORK August 18, 2024 5:0 0am SEIZURE September 08, 2024 12:2 0pm STROKE VS SEIZURE September 10, 2024 4:03 pm Chief Complaint Admit Date [facility] LAB WORK May 19 5:00am [facility] LAB WORK June 09, 2024 5 :00am [facility] LAB WORK June 16, 2024 5 :00am 1 Y FU July 01, 2024 10:3 5am [facility] LAB WORK July 19, 2024 4 :00am [facility] LAB WORK August 18, 2024 5:0 0am [...] 2024 4 :03pm Chief Complaint Admit Date [facility] LAB WORK May 19 5:00am [facility] LAB WORK June 09, 2024 5 :00am [facility] LAB WORK June 16, 2024 5 :00am 1 Y FU July 01, 2024 10:3 5am [facility] LAB WORK July 19, 2024 4 :00am [facility] LAB WORK August 18, 2024 5:0 0am SEIZURE September 08, 2024 12:2 0pm STROKE VS SEIZURE September 10, 2024 4:03 pm STROKE VS SEIZURE September 11, 2024 12:1 4pm 2 SEIZURES/ IN [facility] September 13, 2024 2:04 pm EORDERS [...] section and content) DATE CREATED AUTHOR 02/04/2018 [facility] DATE CREATED AUTHOR AUTHOR'S ORGANIZ ATION 11/12/2019 [facility] DATE CREATED AUTHOR AUTHOR'S ORGANIZ ATION 06/26/2023 [facility] DATE CREATED AUTHOR AUTHOR'S ORGANIZ ATION 10/07/2024 [facility] y Hospital Source Comments (unrecognize d section and content) In the event this informatio n is protected by the Federal Confidentiality of Alcohol and Drug Abuse Patient Records regulations: The Federal rules restrict any use of the information to criminally investigate or prosecute any alcohol or drug abuse patient.[facility] the event this information is protected by the Federal Confidentiality of Alcohol and Drug Abuse Patient Records regulations: The Federal rules restrict any use of the information to criminally investigate or prosecute any alcohol or drug abuse patient.[facility] Hospital[facility] the event this information is protected by the Federal Confidentiality of Alcohol and Drug Abuse Patient Records regulations: The Federal rules restrict any use of the information to criminally investigate or prosecute any alcohol or drug abuse patient.[facility] Hospital[facility] the event this information is protected by the Federal Confidentiality of Alcohol and Drug Abuse Patient Records regulations: The Federal rules restrict any use of the information to criminally investigate or prosecute any alcohol or drug abuse patient.[facility] Hospital[facility] the event this information is protected by the Federal Confidentiality of Alcohol and Drug Abuse Patient Records regulations: The Federal rules restrict any use of the information to criminally investigate or prosecute any alcohol or drug abuse patient.[facility] Reason for Visit (unrecogniz ed section and content) Reason Onset Date Comments Refill Request Refill Request 11/11/2019 Reason Comments Arm Injury Pt arrives via [facility] from [facility] with complaints of right elbow fracture. Patient was sent here for ortho consult. No pain on arrival. Arrives with right arm splinted. Specialty Diagnoses / Procedures Referred By Ana bo Referred To Contact Diagnoses Closed displaced fracture of medial condyle of right humerus, initial encounter Procedures .. 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 Lali Pimentel MD Attending Provider, Emergency Provider Active Dr. Rosemary Droan MD Primary Care Provider Active Team Status: [...] Provider Active Start: Ju ne 2024 Camila Mitcehll MD Other Provider Active Start : September [...] Status: Inactive Member Role Status Dates Dr. vKng Ochoa DO Primary Care Provider Active Start: [...] from all sources in 24 hours. 1511 ([facility] Hold - Provider: Automatic Transfer Provider - Reason: Patient not available)2025 ([facility] Unhold - Provider: Automatic Transfer Provider) acetaminophen (Tylenol) tablet 650 mg(Linked Group 2) 650 mg, Oral, Every 6 hours PRN, mild pain (1-3), fever, For temp greater than 100.4 F (38 C), Starting on Fri06/16/23 at 1639, Maximum dose of acetaminophen is 4000 mg from all sources in 24 hours. 1511 ([facility] Hold - Provider: Automatic Transfer Provider - Reason: Patient not available)2025 ([facility] Unhold - Provider: Automatic Transfer Provider) dextrose 5 % infusion 100 mL/hr, IntraVENous, PRN, Blood sugar less than 70mg/dL, Starting on Fri06/17/23 at 2131, Start infusion following administration of dextrose 50% or glucagon. 1511 ([facility] Hold - Provider: Automatic Transfer Provider - Reason: Patient not available)2025 ([facility] Unhold - Provider: Automatic Transfer Provider) [...] Glucostabilizer, dose as instructed per system. 1511 ([facility] Hold - Provider: Automatic Transfer Provider - Reason: Patient not available)2025 ([facility] Unhold - Provider: Automatic Transfer Provider) [...] 15 minutes x2 and notify provider. 1511 ([facility] Hold - Provider: Automatic Transfer Provider - Reason: Patient not available)2025 ([facility] Unhold - Provider: Automatic Transfer Provider) [...] 15 minutes x2 and notify provider. 1511 ([facility] Hold - Provider: Automatic Transfer Provider - Reason: Patient not available)2025 ([facility] Unhold - Provider: Automatic Transfer Provider) [...] of each other unless specifically ordered. 1511 ([facility] Hold - Provider: Automatic Transfer Provider - Reason: Patient not available)2025 ([facility] Unhold - Provider: Automatic Transfer Provider) naloxone (Narcan) injection 0.4 mg 0.4 mg, IntraVENous, Every 5 min PRN, opioid reversal, respiratory depression, Starting on Fri06/16/23 at 1647, +++ For RR <10, pinpoint pupils, over sedation for opioid reversal - MUST notify semiconductor wafers tester provider immediately after first dose, may give IM or SQ if no IV access +++ 1511 ([facility] Hold - Provider: Automatic Transfer Provider - Reason: Patient not available)2025 ([facility] Unhold - Provider: Automatic Transfer Provider) ondansetron (Zofran) injection 4 mg(Linked Group 3) 4 mg, IntraVENous, Every 6 hours PRN, nausea, vomiting, Starting on Fri06/16/23 at 1639, 1st Line. Give IV if patient is unable to take orally. If inadequate response within 60 minutes, proceed to next-line agent or contact provider if no further options ordered. 1511 ([facility] Hold - Provider: Automatic Transfer Provider - Reason: Patient not available)2025 ([facility] Unhold - Provider: Automatic Transfer Provider) [...] blister pack until just before administering. 1511 ([facility] Hold - Provider: Automatic Transfer Provider - Reason: Patient not available)2025 ([facility] Unhold - Provider: Automatic Transfer Provider) oxyCODONE (Roxicodone) immediate release tablet 2.5 mg(Linked Group 4) 2.5 mg, Oral, Every 4 hours PRN, moderate pain (4-6), Starting on Fri06/16/23 at 1639 1511 ([facility] Hold - Provider: Automatic Transfer Provider - Reason: Patient not available)2025 ([facility] Unhold - Provider: Automatic Transfer Provider) 0924 (See Alternative - Provider: Juanjo Villalba RN) oxyCODONE (Roxicodone) immediate release tablet 5 mg(Linked Group 4) 5 mg, Oral, Every 4 hours PRN, severe pain (7-10), Starting on Fri06/16/23 at 1639 151 ([facility] Hold - Provider: Automatic Transfer Provider - Reason: Patient not available)2025 ([facility] Unhold - Provider: Automatic Transfer Provider) 0924 (Given - Provider: Juanjo Villalba RN) polyethylene glycol (PEG) 3350 (Miralax) packet 17 g 17 g, Oral, Daily PRN, constipation, Starting on Fri06/16/23 at 1639, 1st line for treatment of constipation - give scheduled if no bowel movement in past 24 hours. 1511 ([facility] Hold - Provider: Automatic Transfer Provider - Reason: Patient not available)2025 ([facility] Unhold - Provider: Automatic Transfer Provider) sodium [...] BE BASED ON THE PRIMARY CLINICAL RECORDS. [facility] [facility]. provides no warranty or guarantee of the accuracy or completeness of information in this document.
[2024-10-11 08:09] LABS: INR Fingerstick 2.8
== END ==
PROVIDERS: Referring Provider Family Medicine; Visit Provider Family Medicine
DX: Z79.01 Long term (current) use 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 (principal)
CPT/HCPCS: 36416; 85610

== ENCOUNTER → 2024-10-25 | Outpatient (REF) | payer MEDICARE, SELFPAY ==
[2024-10-25 09:26] LABS: Prothrombin Time (Protime)PT. 34.2 SECONDS (11.7-14.9)
[2024-12-02 10:13] LABS: INR Fingerstick 4.0
== END ==
PROVIDERS: Visit Provider Family Medicine
DX: Z79.01 Long term (current) use 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 (principal)
CPT/HCPCS: 36415; 36416; 85610

== ENCOUNTER → 2024-11-08 05:00 | Outpatient (REF) | payer MEDICARE, SELFPAY ==
--- OUTSIDE RECORDS SUMMARY | 2024-11-08 05:04 | XMS RPT_ITS | CCD ---
Author Organization [facility] Care Team Providers Care Field Service Coordinator Name Role Phone LISHNEVSKI, ALEXIA Unavailable Unavailable [...] LISHNEVSKI, ALEXIA Unavailable Unavailable Villa Hebert Unavailable [phone] Patito Gonzalez Unavailable [phone] Nirmal Kemp Unavailable [phone] Mohan Álvarez Unavailable Bishop, Rickey Clive Unavailable Rosemary Doran Primary Care Provider Lishnevski, Alexia Primary Care Provider [phone] Rosemary Doran Primary Care Provider [phone] Dr. Rosemary Doran Referring Provider Roof STUDIO TECHNICIAN VIDEO OPERATOR, STUDIO TECHNICIAN VIDEO OPERATOR-Adeel Anrett Attending Provider Dr. Rosemary Doran Primary Care [...] Provider Jerrica LENNON, Dr. Ny Attending Provider [phone] Jerrica LENNON, Dr. Ny Referring Provider [phone] Anant Juarez Attending Unavailable Kvng Ochoa Referring Unavailable Ochoa, Kvng Primary Care Unavailable Douglas, Cesar Attending Unavailable Jolliff, Alexandra S Referring Unavailable Jolliff, Alexandra S Primary Care Unavailable Matthew Oro Admitting Unavailable Matthew Oro Attending Unavailable Don, Kvng Primary Care Unavailable AdeOlivia schultz Consulting Unavailable Janett French Consulting Unavailable Julia Carpenter Consulting Unavailable Keyshawn Swan Consulting Unavailable Dmitriy Diop Consulting Unavailable Meagan Edmondson Consulting Unavailable MAMADOU HICKS Consulting Unavailable Cara Batista Consulting Unavailable Lorelei Pruett Consulting Unavailable Robinson Mayorga Consulting Unavailable Aura Thurman Consulting Unavailable Matthew Oro Consulting Unavailable Eric Crowell Consulting Unavailable Camila Mitchell Consulting Unavailable Glenna Jacobson Consulting Unavailable Lenin Tamez Consulting Unavailable Ml Morris Consulting Unavailable Chauncey Vaughn Consulting Unavailable Nirmal Hummel Consulting Unavailable Rubén Michel Consulting Unavailable Iggy Graves Consulting Unavailable Liz Merrill Consulting UnavailBala Iqbal Consulting Unavailable Castillo Jones Consulting Unavailable Daniel Leroy Consulting Unavailable Cindy Horn Consulting Unavailable Ashu Leonard Consulting Unavailable Douglas OLS, Cesar Attending Unavailable Ochoa, Kvng Primary Care Unavailable Douglas OLS, Cesar Attending Unavailable Ochoa, Kvng Primary Care Unavailable Ochoa OLS, Kvng Attending Unavailable Jolliff, Alexandra S Primary Care Unavailable Ochoa OLS, Kvng Attending Unavailable Jolliff, Alexandra S Primary Care Unavailable Ochoakhris MARTINEZ Kvng Attending Unavailable Jolliff, Alexandra S Primary [...] Attending Unavailable Ochoa, Kvng Primary Care Unavailable Matthew Oro Admitting Unavailable Matthew Oro Attending Unavailable Olivia Trinidad Consulting Unavailable Janett French Consulting Unavailable Julia Carpenter Consulting Unavailable Keyshawn Swan Consulting Unavailable Dmitriy Diop Consulting Unavailable Meagan Edmondson Consulting Unavailable MAMADOU HICKS Consulting Unavailable Cara Batista Consulting Unavailable Lorelei Pruett Consulting Unavailable Robinson Mayorga Consulting Unavailable Aura Thurman Consulting Unavailable Eric Crowell Consulting Unavailable HindCamila tiwari Consulting Unavailable Kavon Glenna Consulting Unavailable Lenin Tamez Consulting Unavailable Ml Morris Consulting Unavailable Chauncey Vaughn Consulting Unavailable Nirmal Hummel Consulting Unavailable Rubén Michel Consulting Unavailable Iggy Graves Consulting Unavailable Liz Merrill Consulting UnavailBala Iqbal Consulting Unavailable Castillo Jones Consulting Unavailable Daniel Leroy Consulting Unavailable Cindy Horn Consulting Unavailable Ashu Leonard Consulting Unavailable Douglas OLS, Cesar Attending Unavailable Jolliff, Alexandra S Primary Care Unavailable Douglas OLS, [place] Referring Unavailable Douglas OLS, [place] Attending Unavailable Jolliff, Alexandra S Primary Care Unavailable Anant Juarez Attending Unavailable Jolliff, Alexandra S Primary Care Unavailable Anant Juarez Attending Unavailable Anant Juarez Referring Unavailable Ochoa, Kvng Primary Care Unavailable Blackmon, Anoop Attending Unavailable Blackmon, Anoop Referring Unavailable Ochoa OLS, Kvng Primary Care Unavailable Douglas OLS, Cesar Attending Unavailable Ochoa, Kvng Primary Care Unavailable Ochoa OLS, Kvng Attending Unavailable Ochoa, Kvng Primary Care Unavailable Ochoa OLS, Kvng Referring Unavailable Ochoa OLS, Kvng Attending Unavailable Ochoa, Kvng Primary Care Unavailable Jolliff, Alexandra S Primary Care Unavailable Ochoa OLS, Kvng Attending Unavailable Ochoa OLS, Kvng Referring Unavailable Jolliff, Laexandra S Primary Care Unavailable Ochoa OLS, Kvng Attending Unavailable Jolliff, Alexandra S Primary Care Unavailable Douglas OLS, [place] Attending Unavailable Ochoa OLS, Kvng Attending Unavailable Jolliff, Alexandra S Primary Care Unavailable Ochoa OLS, Kvng Attending Unavailable Jolliff, Alexandra S Primary Care Unavailable Ochoa OLS, Kvng Attending Unavailable Jolliff, Alexandra S Primary Care Unavailable Kvng Whalen Attending Unavailable Jolliff, Alexandra S Primary Care Unavailable Cesar Murrieta Attending Unavailable Jolliff, Alexandra S Primary Care Unavailable Jolliff, Alexandra S Primary Care Unavailable Kvng Whalen Attending Unavailable Jolliff, Alexandra S Primary Care Unavailable Kvng Whalen Attending Unavailable Jolliff, Alexandra S Primary Care Unavailable Kvng Whalen Attending Unavailable Kvng Whalen Attending Unavailable Jolliff, Alexandra S Primary Care Unavailable Kvng Whalen Referring Unavailable Kvng Whalen Attending Unavailable Jolliff, Alexandra S Primary Care Unavailable Jolliff, Alexandra S Primary Care Unavailable Kvng Whalen Attending Unavailable Don MARTINEZ, Kvng Attending Unavailable Jolliff, Alexandra S Primary Care Unavailable Kvng Whalen Attending Unavailable Jolliff, Alexandra S Primary Care Unavailable Kvng Whalen Attending Unavailable Jolliff, Alexandra S Primary Care Unavailable Kvng Whalen Attending Unavailable Jolliff, Alexandra S Primary Care Unavailable Kvng Whalen Attending Unavailable Don, Kvng Primary Care Unavailable Kvng Whalen Referring Unavailable Jolliff, Alexandra S Primary Care Unavailable Rosemary Doran Referring Unavailable Anant Juarez Attending Unavailable Allergies Allergy Classification Reported Allergen(s) Allergy Type Date of Onset Reaction(s) Facility (20 sources) atorvastatin; 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: [ATORVASTATIN] Drug Allergy 5 Other: See Comments [facility] Repository (20 sources) codeine; 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: [CODEINE] Drug Allergy 5 Unknown [facility] Repository (20 sources) Latex; 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: [LATEX] Propensity to adverse reactions (disorder) 5 Rash, Itching [facility] Repository (20 sources) meperidine; 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: [MEPERIDINE] Drug Allergy 5 GI Upset [facility] Repository (20 sources) rosuvastatin; 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: [ROSUVASTATIN] Drug Allergy 5 Other: See Comments [facility] Repository (20 sources) Amiodarone Drug Allergy 2 "Hair falling out in gobs", hair loss [facility] (1 source) Amiodarone Drug Allergy 5 [facility] Repository Medications Current Medications Medication Drug Class(es) [...] release tablet 2.5 mg polyethylene glycol 3350 62283 mg powder for oral solution (4 sources) [...] sources) Long-term current use of anticoagulant; 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: [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] Onset: 11-27-2018 11-27-2018 Episodic Other aftercare (2 sources) 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; 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: [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] Onset: 09-10-2024 Episodic [...] 11-24-2015 Episodic Other aftercare (1 source) Other detention (current) drug therapy; 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: [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 [place], [place], [address] Lamotrigine (Lamictal) Level on 09-16-2024 LAMOTRIGINE 1.7 ug/mL Low 2.0-20.0 [facility] Comment on above: Result Comment: Dete ction Limit = 1.0 Performed at: [facility] [address] [id number] General Laborer: Brandon Wells MD, Phone: [phone] Performed By: #### L 503.5510, L3310.0000, L3300.4400 ####[facility] [id number] [place], [place], [address] Ammoniaon 09-13-2024 Ammonia (P) [Moles/Vol] 28.9 umol/L Normal 11-51 [facility] Comment on above: Performed By: #### L 503.5510, L3310.0000, L3300.4400 ####[facility] [id number] [place], [place], [address] Neurology Visit Reporton Neurology Visit Report [facility] [address], [address] [place], [place] [address] OFFICE VISIT Date of Service: 09/13/24 MR#: [id number] Acct: [id number] Name: EZRA GONZALEZ Rep #: [id number] : 1935 Provider: Dr. Anant baez MD Age/Sex: 89/F [place] [facility] 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 Normal [facility] Venous blood ammonia measure mentOrdered By: Anant Juarez on 09-13-2024 Ammonia (P) [Moles/Vol] 28.9 umol/L [facility] Lamotrigine (Lamictal) Level on 09-12-2024 LAMOTRIGINE 1.2 ug/mL Low 2.0-20.0 [facility] Comment on above: Result Comment: Dete ction Limit = 1.0 Performed at: - [facility] [id number] General Laborer: Brandon Wells MD, Phone: [phone] Performed By: #### L 100.0100, L500.2500, L300.3900, L3300.4400 ####[facility] [id number] [place], [address] Urine Cultureon 09-12-2024 URC Klebsiella pneumonia e sp pneum [place] Count 80,000-100,000 Klebsiella pneumoniae sp pneum: REACTION [...] TMP SMX Islt MELINDA <=20 S Normal [facility] Comment on above: Performed By: #### M 100.2200 ####[facility] [id number] [place], [address] Anion gap in Serum or Plasma Ordered By: Matthew Oro on 09-11-2024 Anion gap [Moles/Vol] 12 mmol/L 08-12 [facility] BUN/creatinine ratioOrdered By: Matthew Oro on 09-11-2024 Urea nitrogen/Creatinine [Mass ratio] 30.4 mg/mg High 01-17 [facility] Basic Metabolic Profile (BMP )on 09-11-2024 BUN/CRE 30.4 RATIO High [facility] Comment on above: Order Comment: Comme nts: NPO at [place] prior to lipid panel Performed By: #### L 500.4100, L100.0500, L500.2500 #### [facility] [address] [place], [address] Calcium [Mass/Vol] 8.8 mg/dL Normal 7.6-11.0 [facility] Comment on above: Order Comment: Comme nts: NPO at [place] prior to lipid panel Performed By: #### L 500.4100, L100.0500, L500.2500 #### [facility] [address] [place], [address] Chloride [Moles/Vol] 105 mmol/L Normal 98-108 [facility] Comment on above: Order Comment: Comme nts: NPO at [place] prior to lipid panel Performed By: #### L 500.4100, L100.0500, L500.2500 #### [facility] [address] [place], [address] CO2 [Moles/Vol] 21.6 mmol/L Normal 21.0-32.0 [facility] Comment on above: Order Comment: Comme nts: NPO at [place] prior to lipid panel Performed By: #### L 500.4100, L100.0500, L500.2500 #### [facility] [address] [place], [address] Creatinine [Mass/Vol] 0.91 mg/dL Normal 0.70-1.20 [facility] Comment on above: Order Comment: Comme nts: NPO at [place] prior to lipid panel Performed By: #### L 500.4100, L100.0500, L500.2500 #### [facility] [address] [place], [address] ECRCL 41.34 ml/min Low 50-250 [facility] Comment on above: Order Comment: Comme nts: NPO at [place] prior to lipid panel Performed By: #### L 500.4100, L100.0500, L500.2500 #### [facility] [address] [place], [address] GAP 12 Normal 5-15 [facility] Comment on above: Order Comment: Comme nts: NPO at [place] prior to lipid panel Performed By: #### L 500.4100, L100.0500, L500.2500 #### [facility] [address] [place], [address] GFR/1.73 sq M.predicted among non-blacks MDRD (S/P/Bld) [Vol rate/Area] 61 mL/min/{1.73_m2} Normal >60 [facility] Comment on above: Order Comment: Comme nts: NPO at [place] prior to lipid panel Result Comment: mL/m in/1.73m2 CKD-EPI Creatinine Equation (2020) Performed By: #### L 500.4100, L100.0500, L500.2500 #### [facility] [address] [place], [address] Glucose [Mass/Vol] 118 mg/dL High 70-99 [facility] Comment on above: Order Comment: Comme nts: NPO at [place] prior to lipid panel Performed By: #### L 500.4100, L100.0500, L500.2500 #### [facility] [address] [place], [address] Potassium [Moles/Vol] 4.4 mmol/L Normal 3.3-5.1 [facility] Comment on above: Order Comment: Comme nts: NPO at [place] prior to lipid panel Performed By: #### L 500.4100, L100.0500, L500.2500 #### [facility] [address] [place], [address] Sodium [Moles/Vol] 139 mmol/L Normal 133-145 [facility] Comment on above: Order Comment: Comme nts: NPO at [place] prior to lipid panel Performed By: #### L 500.4100, L100.0500, L500.2500 #### [facility] [address] [place], [address] Urea nitrogen [Mass/Vol] 28 mg/dL High 4-19 [facility] Comment on above: Order Comment: Comme nts: NPO at [place] prior to lipid panel Performed By: #### L 500.4100, L100.0500, L500.2500 #### [facility] [address] [place], [address] CBC-Complete Blood Cnt No Di ffon 09-11-2024 Erythrocyte distribution width (RBC) [Ratio] 12.8 % Normal 11.6-14.6 [facility] Comment on above: Performed By: #### L 500.4100, L100.0500, L500.2500 #### [facility] [address] [place], [address] Hematocrit (Bld) [Volume fraction] 39.7 % Normal 37-47 [facility] Comment on above: Performed By: #### L 500.4100, L100.0500, L500.2500 #### [facility] [address] [place], [address] Hemoglobin (Bld) [Mass/Vol] 13.1 g/dL Normal 12.0-15.0 [facility] Comment on above: Performed By: #### L 500.4100, L100.0500, L500.2500 #### [facility] [address] [place], [address] MCH (RBC) [Entitic mass] 30.3 pg Normal 27.0-32.0 [facility] Comment on above: Performed By: #### L 500.4100, L100.0500, L500.2500 #### [facility] [address] [place], [address] MCHC (RBC) [Mass/Vol] 33.0 g/dL Normal 32-36 [facility] Comment on above: Performed By: #### L 500.4100, L100.0500, L500.2500 #### [facility] [address] [place], [address] MCV (RBC) [Entitic vol] 91.7 fL Normal 81-99 [facility] Comment on above: Performed By: #### L 500.4100, L100.0500, L500.2500 #### [facility] [address] [place], [address] Platelet mean volume (Bld) [Entitic vol] 10.7 fL Normal 6.2-12.0 [facility] Comment on above: Performed By: #### L 500.4100, L100.0500, L500.2500 #### [facility] [address] [place], [address] Platelets (Bld) [#/Vol] 271 10*3/uL Normal 150-450 [facility] Comment on above: Performed By: #### L 500.4100, L100.0500, L500.2500 #### [facility] [address] [place], [address] RBC (Bld) [#/Vol] 4.33 10*6/uL Normal 4.2-5.4 [facility] Comment on above: Performed By: #### L 500.4100, L100.0500, L500.2500 #### [facility] [address] [place], [address] RDW SD 42.8 fl Normal 35.1-43.9 [facility] Comment on above: Performed By: #### L 500.4100, L100.0500, L500.2500 #### [facility] [address] [place], [address] WBC (Bld) [#/Vol] 12.2 10*3/uL High 4.4-11.0 [facility] Comment on above: Performed By: #### L 500.4100, L100.0500, L500.2500 #### [facility] [address] [place], [address] Calculated very low density lipoprotein (VLDL) cholesterol measurementOrdered By: Matthew Oro on 09-11-2024 Calculated very low density lipoprotein (VLDL) cholesterol measurement 16 mg/dL 5-40 [facility] Carbon dioxide, total [Moles /volume] in Central venous bloodOrdered By: Matthew Oro on 09-11-2024 CO2 [Moles/Vol] 21.6 mmol/L 21.0-32.0 [facility] Chloride assayOrdered By: Urban Oro on 09-11-2024 Chloride [Moles/Vol] 105 mmol/L 98-108 [facility] Discharge Instructionon 08-29 Discharge Instruction [facility] Medical Records Department [address] [place] [address] Instructions for Home/Discharge Instructions 09/11/24 1214 MR#: [id number] Acct: [id number] Name: EZRA GONZALEZ Rep #: [id number] : 1935 89 From: Matthew Oro DO PCP: Dr. Kvng Ochoa, Status:ADM ZHENG Discharge Instructions Diet Discharge Diet: No restrictions [...] Glenna Jacobson; Lorelei Pruett; Bala Perez; Janett Frnech MD; aCmila Mitchell MD; Eric Crowell MD; Julia Carpenter [...] Thurman DO; Ashu Leonard MD Signed Normal [facility] Electroencephalogramon 09-11 Electroencephalogram [facility] Pulmonary Services/Neurology [address] [place] [address] MR#: [id number] Acct: [id number] Name: EZRA GONZALEZ Rep #: [id number] : 1935 89 From: Castillo Jones MD Referring Dr: Status: ADM ZHENG Location: [place] [address] Date: 09/10/24 Sex: F C EEG Results Procedure Details EEG Procedure Details: Inpatient routine EEG report performed at [facility] Study start time: 1326 on 09/11/24 [...] DO Date Dictated: 09/11/241501 Date Transcribed: 09/11/241501 Planning Division Superintendent: [place] Signed Normal [facility] Erythrocyte distribution wid th ratioOrdered By: Matthew Oro on 09-11-2024 Erythrocyte distribution width (RBC) [Ratio] 12.8 % 11.6-14.6 [facility] Erythrocyte distribution wid th standard deviationOrdered By: Matthew Oro on 09-11-2024 Erythrocyte distribution width (RBC) [Ratio] 42.8 fl 35.1-43.9 [facility] Glomerular filtration rate ( GFR) estimation/1.73 sq m using serum, plasma, or whole bOrdered By: Matthew Oro on 09-11-2024 GFR/1.73 sq M.predicted among non-blacks MDRD (S/P/Bld) [Vol rate/Area] 61 mL/min/{1.73_m2} >60 [facility] Comment on above: mL/min/1.73m2 CKD-EP I Creatinine Equation (2020) Hematocrit Auto (Bld) [Volum e fraction]Ordered By: Matthew Oro on 09-11-2024 Hematocrit (Bld) [Volume fraction] 39.7 % 37-47 [facility] Hemoglobin measurementOrdere d By: Matthew Oro on 09-11-2024 Hemoglobin (Bld) [Mass/Vol] 13.1 g/dL 12.0-15.0 [facility] LDL calc ser/plasOrdered By: Matthew Oro on 09-11-2024 Cholesterol in LDL [Mass/Vol] 100 mg/dL [facility] Comment on above: Dgrlltrbnp=732-828 m g/dL & Higher Cucf=496 mg/dL or greater Lipid Profileon 09-11-2024 CHOL:HDL 3.03 Normal [facility] Comment on above: Order Comment: Comme nts: NPO at [place] prior to lipid panel Performed By: #### L 500.4100, L100.0500, L500.2500 #### [facility] [address] [place], [address] Cholesterol [Mass/Vol] 172 mg/dL Normal <=200 [facility] Comment on above: Order Comment: Comme nts: NPO at [place] prior to lipid panel Result Comment: Chol esterol level, Desirable <200 mg/dL Borderline high cholesterol 200-239 mg/dL High cholesterol >=240 mg/dL Recommendations of the NCEP Adult Treatment Panel for the following risk-cutoff thresholds for the [place] population. Performed By: #### L 500.4100, L100.0500, L500.2500 #### [facility] [address] [place] [place], [address] Cholesterol in HDL [Mass/Vol] 57 mg/dL Normal [facility] Comment on above: Order Comment: Comme nts: NPO at [place] prior to lipid panel Result Comment: Halima onal Cholesterol Education Program (NCEP) guidelines: <40 mg/dL: Low HDL-cholesterol (major risk factor for CHD) >= 60 mg/dL: High HDL-cholesterol (negative risk factor for CHD) HDL-cholesterol is affected by a number of factors, e.g. smoking, exercise, hormones, sex and age. Performed By: #### L 500.4100, L100.0500, L500.2500 #### [facility] [address] [place], [address] Cholesterol in LDL [Mass/Vol] 100 mg/dL Normal [facility] Comment on above: Order Comment: Comme nts: NPO at [place] prior to lipid panel Result Comment: Bord msivpi=252-866 mg/dL Higher Uxyh=711 mg/dL or greater Performed By: #### L 500.4100, L100.0500, L500.2500 #### [facility] [address] [place], [address] Cholesterol in VLDL [Mass/Vol] 16 mg/dL Normal 5-40 [facility] Comment on above: Order Comment: Comme nts: NPO at [place] prior to lipid panel Performed By: #### L 500.4100, L100.0500, L500.2500 #### [facility] [address] [place], [address] Triglyceride [Mass/Vol] 78 mg/dL Normal [facility] Comment on above: Order Comment: Comme nts: NPO at [place] prior to lipid panel Result Comment: The drugs N-Acetylcysteine and Metamizole may falsely depress this assay. Normal range: <150 mg/dL Borderline High: 150-199 mg/dL High: 200-499 mg/dL Very High: >500 mg/dL Performed By: #### L 500.4100, L100.0500, L500.2500 #### [facility] [address] [place], [address] MCV (mean corpuscular volume ) determinationOrdered By: Matthew Oro on 09-11-2024 MCV (RBC) [Entitic vol] 91.7 fL 81-99 [facility] Mean corpuscular hemoglobin (MCH) determinationOrdered By: Matthew Oro on 09-11-2024 MCH (RBC) [Entitic mass] 30.3 pg 27.0-32.0 [facility] Mean corpuscular hemoglobin concentration (MCHC) determinationOrdered By: Matthew Oro on 09-11-2024 MCHC (RBC) [Mass/Vol] 33.0 g/dL 32-36 [facility] Mean platelet volume determi nationOrdered By: Matthew Oro on 09-11-2024 Platelet mean volume (Bld) [Entitic vol] 10.7 fL 6.2-12.0 [facility] Platelet countOrdered By: Urban Oro on 09-11-2024 Platelets (Bld) [#/Vol] 271 10*3/uL 150-450 [facility] Potassium measurement (mass/ volume)Ordered By: Matthew Oro on 09-11-2024 Potassium (Unsp spec) [Mass/Vol] 4.4 mmol/L 3.3-5.1 [facility] RBC Auto (Bld) [#/Vol]Ordere d By: Matthew Oro on 09-11-2024 RBC (Bld) [#/Vol] 4.33 10*6/uL 4.2-5.4 [facility] Screening total cholesterol/ high density lipoprotein (HDL) cholesterol ratioOrdered By: Matthew Oro on 09-11-2024 Cholesterol.total/Cholest felipe in HDL [Mass ratio] 3.03 {ratio} [facility] Serum creatinine measurement (mass/volume)Ordered By: Matthew Oro on 09-11-2024 Creatinine [Mass/Vol] 0.91 mg/dL 0.70-1.20 [facility] Serum glucose measurement (m ass/volume)Ordered By: Matthew Oro on 09-11-2024 Glucose [Mass/Vol] 118 mg/dL High 70-99 [facility] Serum or plasma calcium viktoria urement (mass/volume)Ordered By: Matthew Oro on 09-11-2024 Calcium [Mass/Vol] 8.8 mg/dL 7.6-11.0 [facility] Serum or plasma cholesterol in HDL measurement (mass/volume)Ordered By: Matthew Oro on 09-11-2024 Cholesterol in HDL [Mass/Vol] 57 mg/dL >40 [facility] Comment on above: National Cholesterol Education Program (NCEP) guidelines:<40 mg/dL: Low HDL-cholesterol (major risk factor for CHD)>= 60 mg/dL: High HDL-cholesterol (negative risk factor for CHD)HDL-cholesterol is affected by a number of factors, e.g. smoking, exercise, hormones, sex and age. Serum or plasma cholesterol measurement (mass/volume)Ordered By: Matthew Oro on 09-11-2024 Cholesterol [Mass/Vol] 172 mg/dL <201 [facility] Comment on above: Cholesterol level, D esirable <200 mg/dLBorderline high cholesterol 200-239 mg/dLHigh cholesterol >=240 mg/dLRecommendations of the NCEP Adult Treatment Panel for the following risk-cutoff thresholds for the [place] population. Serum or plasma urea nitroge n measurement (mass/volume)Ordered By: Matthew Oro on 09-11-2024 Urea nitrogen [Mass/Vol] 28 mg/dL High 4-19 [facility] Sodium levelOrdered By: All Oro on 09-11-2024 Sodium [Moles/Vol] 139 mmol/L 133-145 [facility] Triglycerides measurementOrd ered By: Matthew Oro on 09-11-2024 Triglyceride [Mass/Vol] 78 mg/dL <199 [facility] Comment on above: The drugs N-Acetylcy steine and Metamizole may falsely depress this assay. Normal range: <150 mg/dLBorderline High: 150-199 mg/dLHigh: 200-499 mg/dLVery High: >500 mg/dL White blood cell (WBC) count Ordered By: Matthew Oro on 09-11-2024 WBC (Bld) [#/Vol] 12.2 10*3/uL High 4.4-11.0 [facility] Absolute lymphocyte countOrd ered By: Teri Garcia on 09-10-2024 Lymphocytes Auto (Unsp spec) [#/Vol] 1.91 10*3/uL 0.83-4.51 [facility] Absolute neutrophil countOrd ered By: Teri Garcia on 09-10-2024 Neutrophils (Bld) [#/Vol] 8.3 10*3/uL High 2.0-7.7 [facility] Activated partial thrombopla stin time (aPTT) in platelet poor plasma by coagulation aOrdered By: Teri Garcia on 09-10-2024 aPTT Coag (PPP) [Time] 31.8 s 24.1-36.2 [facility] Anion gap in Serum or Plasma Ordered By: Teri Garcia on 09-10-2024 Anion gap [Moles/Vol] 12 mmol/L 5-15 [facility] Automated lymphocyte count a s percentage of total leukocytesOrdered By: Teri Garcia on 09-10-2024 Lymphocytes/100 WBC Auto (Unsp spec) 16.6 % Low 19-41 [facility] BUN/creatinine ratioOrdered By: Teri Garcia on 09-10-2024 Urea nitrogen/Creatinine [Mass ratio] 34.8 mg/mg High 10-20 [facility] Basic Metabolic Profile (BMP )on 09-10-2024 BUN/CRE 34.8 RATIO High - [facility] Comment on above: Performed By: #### L 500.2500, L100.0100, L501.4021, L300.3900, L300.4310 ####[facility] [address] [place], [address] Calcium [Mass/Vol] 8.7 mg/dL Normal 7.6-11.0 [facility] Comment on above: Performed By: #### L 500.2500, L100.0100, L501.4021, L300.3900, L300.4310 ####[facility] [address] [place], [address] Chloride [Moles/Vol] 103 mmol/L Normal 98-108 [facility] Comment on above: Performed By: #### L 500.2500, L100.0100, L501.4021, L300.3900, L300.4310 ####[facility] [address] [place], [address] CO2 [Moles/Vol] 21.8 mmol/L Normal 21.0-32.0 [facility] Comment on above: Performed By: #### L 500.2500, L100.0100, L501.4021, L300.3900, L300.4310 ####[facility] [address] [place], [address] Creatinine [Mass/Vol] 1.05 mg/dL Normal 0.70-1.20 [facility] Comment on above: Performed By: #### L 500.2500, L100.0100, L501.4021, L300.3900, L300.4310 ####[facility] [address] [place], [address] ECRCL 33.63 ml/min Low 50-250 [facility] Comment on above: Performed By: #### L 500.2500, L100.0100, L501.4021, L300.3900, L300.4310 ####[facility] [address] [place], [address] GAP 12 Normal 5-15 [facility] Comment on above: Performed By: #### L 500.2500, L100.0100, L501.4021, L300.3900, L300.4310 ####[facility] [address] [place], [address] GFR/1.73 sq M.predicted among non-blacks MDRD (S/P/Bld) [Vol rate/Area] 51 mL/min/{1.73_m2} Low >60 [facility] Comment on above: Result Comment: mL/m in/1.73m2 CKD-EPI Creatinine Equation (2020) Performed By: #### L 500.2500, L100.0100, L501.4021, L300.3900, L300.4310 ####[facility] [address] [place], [address] Glucose [Mass/Vol] 131 mg/dL High 70-99 [facility] Comment on above: Performed By: #### L 500.2500, L100.0100, L501.4021, L300.3900, L300.4310 ####[facility] [address] [place], [address] Potassium [Moles/Vol] 4.4 mmol/L Normal 3.3-5.1 [facility] Comment on above: Result Comment: Hemo lysis present, Results??could be affected. ?? Performed By: #### L 500.2500, L100.0100, L501.4021, L300.3900, L300.4310 ####[facility] [address] [place] [place], [address] Sodium [Moles/Vol] 137 mmol/L Normal 133-145 [facility] Comment on above: Performed By: #### L 500.2500, L100.0100, L501.4021, L300.3900, L300.4310 ####[facility] [address] [place], [address] Urea nitrogen [Mass/Vol] 37 mg/dL High 4-19 [facility] Comment on above: Performed By: #### L 500.2500, L100.0100, L501.4021, L300.3900, L300.4310 ####[facility] [address] [place], [address] Basophil percentageOrdered B y: Teri Garcia on 09-10-2024 Basophils/100 WBC (Bld) 0.4 % 0-1 [facility] Bilirubin Test strip Ql (U)O rdered By: Teri Garcia on 09-10-2024 Bilirubin Ql (U) Negative Negative [facility] Brain without Contraston Brain without Contrast [facility] Imaging Services [address] [place] [address] Brain without Contrast MR#: [id number] Acct: [id number] Name: EZRA GONZALEZ Rep #: [id number] : 1935 F 89 From: Matthias Márquez MD PCP: Dr. Kvng Ochoa, DO Status: ADM ZHENG Study: Brain without Contrast Date of Exam: 09/10/24 Exam# [id number] Ordering Dr: Matthew Oro DO PROCEDURE: BRAIN [...] changes Reading Location[facility] CC: Dr. Matthew Oro, DO; Dr. Kvng Ochoa, DO Planning Division Superintendent: Signed Normal [facility] CBC W/Diff, Automatedon 08-29 Absolute Lymph 1.91 X10 3/uL Normal 0.83-4.51 [facility] Comment on above: Performed By: #### L 500.2500, L100.0100, L501.4021, L300.3900, L300.4310 ####[facility] [address] [place], [address] Absolute Neut 8.3 X10 3/uL High 2.0-7.7 [facility] Comment on above: Performed By: #### L 500.2500, L100.0100, L501.4021, L300.3900, L300.4310 ####[facility] [address] [place], [address] Basophils/100 WBC (Bld) 0.4 % Normal 0-1 [facility] Comment on above: Performed By: #### L 500.2500, L100.0100, L501.4021, L300.3900, L300.4310 ####[facility] [address] [place], [address] Eosinophils/100 WBC (Bld) 1.2 % Normal 0-5 [facility] Comment on above: Performed By: #### L 500.2500, L100.0100, L501.4021, L300.3900, L300.4310 ####[facility] [address] [place], [address] Erythrocyte distribution width (RBC) [Ratio] 13.2 % Normal 11.6-14.6 [facility] Comment on above: Performed By: #### L 500.2500, L100.0100, L501.4021, L300.3900, L300.4310 ####[facility] [address] [place], [address] Hematocrit (Bld) [Volume fraction] 41.7 % Normal 37-47 [facility] Comment on above: Performed By: #### L 500.2500, L100.0100, L501.4021, L300.3900, L300.4310 ####[facility] [address] [place], [address] Hemoglobin (Bld) [Mass/Vol] 13.6 g/dL Normal 12.0-15.0 [facility] Comment on above: Performed By: #### L 500.2500, L100.0100, L501.4021, L300.3900, L300.4310 ####[facility] [address] [place], [address] IG% 0.400 Normal 0.0-0.9 [facility] Comment on above: Result Comment: IG% - Immature Granulocytes (promyelocytes, myelocytes and metamyelocytes) > 1% indicates that a LEFT SHIFT is Present. Performed By: #### L 500.2500, L100.0100, L501.4021, L300.3900, L300.4310 ####[facility] [address] [place], [address] Lymphocytes/100 WBC (Bld) 16.6 % Low 19-41 [facility] Comment on above: Performed By: #### L 500.2500, L100.0100, L501.4021, L300.3900, L300.4310 ####[facility] [address] [place], [address] MCH (RBC) [Entitic mass] 30.6 pg Normal 27.0-32.0 [facility] Comment on above: Performed By: #### L 500.2500, L100.0100, L501.4021, L300.3900, L300.4310 ####[facility] [address] [place], [address] MCHC (RBC) [Mass/Vol] 32.6 g/dL Normal 32-36 [facility] Comment on above: Performed By: #### L 500.2500, L100.0100, L501.4021, L300.3900, L300.4310 ####[facility] [address] [place], [address] MCV (RBC) [Entitic vol] 93.9 fL Normal 81-99 [facility] Comment on above: Performed By: #### L 500.2500, L100.0100, L501.4021, L300.3900, L300.4310 ####[facility] [address] [place], [address] Monocytes/100 WBC (Bld) 9.1 % Normal 0-10 [facility] Comment on above: Performed By: #### L 500.2500, L100.0100, L501.4021, L300.3900, L300.4310 ####[facility] [address] [place], [address] Neutrophils/100 WBC (Bld) 72.3 % High 47-70 [facility] Comment on above: Performed By: #### L 500.2500, L100.0100, L501.4021, L300.3900, L300.4310 ####[facility] [address] [place], [address] Nucleated RBC (Bld) [#/Vol] 0 10*3/uL Normal 0-5 [facility] Comment on above: Performed By: #### L 500.2500, L100.0100, L501.4021, L300.3900, L300.4310 ####[facility] [address] [place], [address] Platelet mean volume (Bld) [Entitic vol] 10.4 fL Normal 6.2-12.0 [facility] Comment on above: Performed By: #### L 500.2500, L100.0100, L501.4021, L300.3900, L300.4310 ####[facility] [address] [place], [address] Platelets (Bld) [#/Vol] 269 10*3/uL Normal 150-450 [facility] Comment on above: Performed By: #### L 500.2500, L100.0100, L501.4021, L300.3900, L300.4310 ####[facility] [address] [place], [address] RBC (Bld) [#/Vol] 4.44 10*6/uL Normal 4.2-5.4 [facility] Comment on above: Performed By: #### L 500.2500, L100.0100, L501.4021, L300.3900, L300.4310 ####[facility] [address] [place], [address] RDW SD 45.4 fl High 35.1-43.9 [facility] Comment on above: Performed By: #### L 500.2500, L100.0100, L501.4021, L300.3900, L300.4310 ####[facility] [address] [place], [address] WBC (Bld) [#/Vol] 11.5 10*3/uL High 4.4-11.0 [facility] Comment on above: Performed By: #### L 500.2500, L100.0100, L501.4021, L300.3900, L300.4310 ####[facility] [address] [place], [address] Carbon dioxide, total [Moles /volume] in Central venous bloodOrdered By: Teri Garcia on 09-10-2024 CO2 [Moles/Vol] 21.8 mmol/L 21.0-32.0 [facility] Chloride assayOrdered By: Adam Garcia on 09-10-2024 Chloride [Moles/Vol] 103 mmol/L 98-108 [facility] Emergency Department Summary on 09-10-2024 Emergency Department Summary [facility] Medical Records Department [address] [place] [address] Emergency Department Summary 09/10/24 MR#: [id number] Acct: [id number] Name: EZRA GONZALEZ Rep #: [id number] : 1935 89 From: Teri Garcia DO [...] son Wilfredo (her eldest son) phone number [phone]. He states that she follows with Dr. Juarez (neurology) and he suspects that this could be epileptic episodes. He also tells me that he talk to her about 615 this morning and she seemed a little off with her mentation as well as her pronunciation. 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 Normal [facility] Eosinophil percentageOrdered By: Teri Garcia on 09-10-2024 Eosinophils/100 WBC (Bld) 1.2 % 0-5 [facility] Erythrocyte distribution wid th ratioOrdered By: Teri Garcia on 09-10-2024 Erythrocyte distribution width (RBC) [Ratio] 13.2 % 11.6-14.6 [facility] Erythrocyte distribution wid th standard deviationOrdered By: Teri Garcia on 09-10-2024 Erythrocyte distribution width (RBC) [Ratio] 45.4 fl High 35.1-43.9 [facility] Glomerular filtration rate ( GFR) estimation/1.73 sq m using serum, plasma, or whole bOrdered By: Teri Garcia on 09-10-2024 GFR/1.73 sq M.predicted among non-blacks MDRD (S/P/Bld) [Vol rate/Area] 51 mL/min/{1.73_m2} Low >60 [facility] Comment on above: mL/min/1.73m2 CKD-EP I Creatinine Equation (2020) H AND P Exam - Hospitaliston 09-10-2024 H&P Exam - Hospitalist [facility] Medical Records Department [address] [place] [address] H P Exam - Hospitalist 09/10/24 1603 MR#: [id number] Acct: [id number] Name: EZRA GONZALEZ Rep #: [id number] : 1935 89 From: Matthew Oro DO PCP: Dr. Kvng Ochoa DO Status:ADM ZHENG Location: [place] [address] HPI - General General Date of Admission: 09/10/24 Date of Service: 09/10/24 Chief Complaint: Dysarthria HPI Narrative EZRA GONZALEZ, is a 89 F who presented to [facility] ED on 09/10/2024 with dysarthria. Patient lives at assisted living at [place]. Has history of seizures and is on [...] any other acute concerns at this time. 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 Normal [facility] Hematocrit Auto (Bld) [Volum e fraction]Ordered By: Teri Garcia on 09-10-2024 Hematocrit (Bld) [Volume fraction] 41.7 % 37-47 [facility] Hemoglobin measurementOrdere d By: Teri Garcia on 09-10-2024 Hemoglobin (Bld) [Mass/Vol] 13.6 g/dL 12.0-15.0 [facility] Immature granulocytes/100 WB C Auto (Bld)Ordered By: Teri Garcia on 09-10-2024 Immature granulocytes/100 WBC (Bld) 0.400 % 0.0-0.9 [facility] Comment on above: IG% - Immature Granu locytes (promyelocytes, myelocytes and metamyelocytes) > 1% indicates that a LEFT SHIFT is Present. International normalized rat io (INR) calculationOrdered By: Teri Garcia on 09-10-2024 INR Coag (Bld) [Relative time] 2.4 {INR} [facility] Ketones Test strip Ql (U)Ord ered By: Teri Jose on 09-10-2024 Ketones Ql (U) Negative Negative [facility] L499.0042on 09-10-2024 Trop T High Sen 17 ng/L High <=14 [facility] Comment on above: Performed By: #### L 499.0042 #### [facility] Laboratory [address] [place], [address] L499.0043on 09-10-2024 Trop T High Sen 15 ng/L High <=14 [facility] Comment on above: Performed By: #### L 499.0043 #### [facility] Laboratory [address] [place], [address] L501.4021on 09-10-2024 Trop T High Sen 18 ng/L High <=14 [facility] Comment on above: Performed By: #### L 500.2500, L100.0100, L501.4021, L300.3900, L300.4310 ####[facility] [address] [place], [address] MCV (mean corpuscular volume ) determinationOrdered By: Teri Garcia on 09-10-2024 MCV (RBC) [Entitic vol] 93.9 fL 81-99 [facility] Magnetic resonance imaging r eportOrdered By: Matthias Márquez on 09-10-2024 Study report [facility] Imaging Services [address] [place] [address] Brain without Contrast MR#: [id number] Acct: [id number] Name: EZRA GONZALEZ Rep #: [id number] : 1935 F 89 From: Bill Márquez MD PCP: Dr. Kvng Ochoa, DO Status: ADM ZHENG Study:Brain without Contrast Date of Exam: 09/10/24 Exam# [id number] Ordering Dr: Matthew Patel DO PROCEDURE: BRAIN [...] changes Reading Location: [facility] CC: Dr. Matthew Oro DO; Dr. Kvng Ochoa DO ~ Planning Division Superintendent: Signed [facility] Mean corpuscular hemoglobin (MCH) determinationOrdered By: Teri Garcia on 09-10-2024 MCH (RBC) [Entitic mass] 30.6 pg 27.0-32.0 [facility] Mean corpuscular hemoglobin concentration (MCHC) determinationOrdered By: Teri Garcia on 09-10-2024 MCHC (RBC) [Mass/Vol] 32.6 g/dL 32-36 [facility] Mean platelet volume determi nationOrdered By: Teri Garcia on 09-10-2024 Platelet mean volume (Bld) [Entitic vol] 10.4 fL 6.2-12.0 [facility] Microscopic analysis of urin e for red blood cells (RBC)Ordered By: Teri Garcia on 09-10-2024 Microscopic analysis of urine for red blood cells (RBC) 0 SEEN /hpf 0-5 [facility] Monocyte percentageOrdered B y: Teri Garcia on 09-10-2024 Monocytes/100 WBC (Bld) 9.1 % 0-10 [facility] Mucus LM Ql (Urine sed)Order ed By: Teri Garcia on 09-10-2024 Mucus Ql (Urine sed) 0 SEEN /hpf [facility] Neutrophil percentageOrdered By: Teri Garcia on 09-10-2024 Neutrophils/100 WBC (Bld) 72.3 % High 47-70 [facility] Nitrite Test strip Ql (U)Ord ered By: Teri Garcia on 09-10-2024 Nitrite Ql (U) Negative Negative [facility] Nucleated red blood cell per centageOrdered By: Teri Garcia on 09-10-2024 Nucleated RBC/100 WBC (Bld) [Ratio] 0 % 0-5 [facility] Partial Thromboplast Timeon 09-10-2024 aPTT Coag (Bld) [Time] 31.8 s Normal 24.1-36.2 [facility] Comment on above: Performed By: #### L 500.2500, L100.0100, L501.4021, L300.3900, L300.4310 ####[facility] [address] [place], [address] Platelet countOrdered By: Adam Garcia on 09-10-2024 Platelets (Bld) [#/Vol] 269 10*3/uL 150-450 [facility] Potassium measurement (mass/ volume)Ordered By: Teri Garcia on 09-10-2024 Potassium (Unsp spec) [Mass/Vol] 4.4 mmol/L 3.3-5.1 [facility] Comment on above: Hemolysis present, R esults could be affected. Protein Test strip Ql (U)Ord ered By: Teri Garcia on 09-10-2024 Protein Ql (U) 30 mg/dl High Negative [facility] Prothrombin Time w/INRon INR Coag (PPP) [Relative time] 2.4 {INR} Normal [facility] Comment on above: Performed By: #### L 500.2500, L100.0100, L501.4021, L300.3900, L300.4310 ####[facility] [address] [place], [address] PT Coag (PPP) [Time] 26.4 s High 11.7-14.9 [facility] Comment on above: Performed By: #### L 500.2500, L100.0100, L501.4021, L300.3900, L300.4310 ####[facility] [address] [place], [address] Prothrombin timeOrdered By: Teri Garcia on 09-10-2024 PT Coag (PPP) [Time] 26.4 s High 11.7-14.9 [facility] RBC Auto (Bld) [#/Vol]Ordere d By: Teri Garcia on 09-10-2024 RBC (Bld) [#/Vol] 4.44 10*6/uL 4.2-5.4 [facility] STROKE Brain/Head without Co nton 09-10-2024 STROKE Brain/Head without Cont [facility] Imaging Services [address] [place], [place] [address] STROKE Brain/Head without Cont MR#: [id number] Acct: [id number] Name: EZRA GONZALEZ Rep #: [id number] : 1935 F 89 From: Mio nayak MD PCP: Dr. Kvng Ochoa, Status: [facility] ER Study: STROKE Brain/Head without Cont Date of Exam: 0 09/10/24 Exam# [id number] Ordering Dr: Teri Garcia DO PROCEDURE: STROKE [...] 2:05 pm with readback verification. Reading Location: [id number] CC: Dr. Teri Garcia, ; Dr. Kvng Ochoa DO Planning Division Superintendent: Signed Normal [facility] STROKE CTA Head AND Neck W/C onon 09-10-2024 STROKE CTA Head AND Neck W/Con [facility] Imaging Services [address] [place] [address] STROKE CTA Head AND Neck W/Con MR#: [id number] Acct: [id number] Name: EZRA GONZALEZ Rep #: [id number] : 1935 F 89 From: Mio nayak MD PCP: Dr. Kvng Ochoa DO Status: REG ER Study: STROKE CTA Head AND Neck W/Con Date of Exam: 0 09/10/24 Exam# [id number] Ordering Dr: Teri Garcia DO PROCEDURE: STROKE [...] RIGHT Vertebral: Unremarkable. LEFT Vertebral: Unremarkable. Anatomy: [place] anatomy is normal. Aneurysm or [...] 3:01 pm with readback verification. Reading Location: [id number] CC: Dr. Teri Garcia, DO; Dr. Kvng Ochoa, DO Planning Division Superintendent: Signed Normal [facility] Serum creatinine measurement (mass/volume)Ordered By: Teri Garcia on 09-10-2024 Creatinine [Mass/Vol] 1.05 mg/dL 0.70-1.20 [facility] Serum glucose measurement (m ass/volume)Ordered By: Teri Garcia on 09-10-2024 Glucose [Mass/Vol] 131 mg/dL High 70-99 [facility] Serum or plasma calcium viktoria urement (mass/volume)Ordered By: Teri Garcia on 09-10-2024 Calcium [Mass/Vol] 8.7 mg/dL 7.6-11.0 [facility] Serum or plasma urea nitroge n measurement (mass/volume)Ordered By: Teri Garcia on 09-10-2024 Urea nitrogen [Mass/Vol] 37 mg/dL High 4-19 [facility] Sodium levelOrdered By: Ollie Garcia on 09-10-2024 Sodium [Moles/Vol] 137 mmol/L 133-145 [facility] Squamous epithelial cells de tection in urine sediment by light microscopyOrdered By: Teri Garcia on 09-10-2024 Epithelial cells.squamous LM Ql (Urine sed) 0-5 SEEN /hpf 5-10 [facility] Troponin T.cardiac [Mass/vol ume] in Serum or Plasma by High sensitivity methodOrdered By: Teri Garcia on 09-10-2024 Troponin T.cardiac High sensitivity method [Mass/Vol] 15 ng/L High <14 [facility] Troponin T.cardiac High sensitivity method [Mass/Vol] 17 ng/L High <14 [facility] Troponin T.cardiac High sensitivity method [Mass/Vol] 18 ng/L High <14 [facility] Urinalysis, Completeon 09-10 BACTERIA RARE Normal None Seen [facility] Comment on above: Order Comment: RANDY CTOR TO SPECIFY Performed By: #### L 400.0001 ####[facility] [address] [place] [address] EPI,SQUAMOUS 0-5 SEEN Normal 5-10 [facility] Comment on above: Order Comment: RANDY CTOR TO SPECIFY Performed By: #### L 400.0001 ####[facility] [address] [place] [id number] WBC 10-25 SEEN Normal 0-5 [facility] Comment on above: Order Comment: RANDY CTOR TO SPECIFY Performed By: #### L 400.0001 ####[facility] [address] [place], [address] Mucus Ql (Urine sed) 0 SEEN Normal [facility] Comment on above: Order Comment: RANDY CTOR TO SPECIFY Performed By: #### L 400.0001 ####[facility] [address] [place], [address] RBC 0 SEEN Normal 0-5 [facility] Comment on above: Order Comment: RANDY CTOR TO SPECIFY Performed By: #### L 400.0001 ####[facility] [address] [facility] [address] Urine clarityOrdered By: Lashaun Garcia on 09-10-2024 Clarity (U) Clear Clear [facility] Urine color determinationOrd ered By: Teri Garcia on 09-10-2024 Color (U) Straw Yellow [facility] Urine cultureOrdered By: Lashaun Garcia on 09-10-2024 Bacteria identified Cx Nom (U) Klebsiella pneumoniae sp pneum Abnormal [facility] Urine glucose detectionOrder ed By: Teri Garcia on 09-10-2024 Glucose Ql (U) Normal mg/dl Normal [facility] Urine leukocyte esterase det ection by dipstickOrdered By: Teri Garcia on 09-10-2024 Leukocyte esterase Test strip Ql (U) 500 /ul High Negative [facility] Urine pHOrdered By: Teri romero on 09-10-2024 pH (U) 5.0 [pH] 5.0 - 8.0 [facility] Urine sediment bacteria coun t by microscopy (number/high power field)Ordered By: Teri Garcia on 09-10-2024 Bacteria LM.HPF (Urine sed) [#/Area] RARE /hpf None Seen [facility] Urine specific gravity measu rementOrdered By: Teri Garcia on 09-10-2024 Specific gravity (U) [Rel density] 1.010 1.002-1.030 [facility] Urine urobilinogen measureme ntOrdered By: Teri Garcia on 09-10-2024 Urobilinogen Ql (U) Normal mg/dl Normal [facility] White blood cell (WBC) count Ordered By: Teri Garcia on 09-10-2024 WBC (Bld) [#/Vol] 11.5 10*3/uL High 4.4-11.0 [facility] White blood cell countOrdere d By: Teri Garcia on 09-10-2024 White blood cell count 10-25 SEEN /hpf 0-5 [facility] Absolute lymphocyte countOrd ered By: Anoop Blackmon on 09-08-2024 Lymphocytes Auto (Unsp spec) [#/Vol] 2.21 10*3/uL 0.83-4.51 [facility] Absolute neutrophil countOrd ered By: Anoopjacki Blackmon on 09-08-2024 Neutrophils (Bld) [#/Vol] 10.3 10*3/uL High 2.0-7.7 [facility] Anion gap in Serum or Plasma Ordered By: Anoopjacki Blackmon on 09-08-2024 Anion gap [Moles/Vol] 11 mmol/L 5-15 [facility] Automated lymphocyte count a s percentage of total leukocytesOrdered By: Anoop Blackmon on 09-08-2024 Lymphocytes/100 WBC Auto (Unsp spec) 16.2 % Low 19-41 [facility] BUN/creatinine ratioOrdered By: Anoop Blackmon on 09-08-2024 Urea nitrogen/Creatinine [Mass ratio] 35.2 mg/mg High 10-20 [facility] Basic Metabolic Profile (BMP )on 09-08-2024 BUN/CRE 35.2 RATIO High 10-20 [facility] Comment on above: Performed By: #### L 100.0100, L500.2500, L300.3900, L3300.4400 ####[facility] [address] [place], [address] Calcium [Mass/Vol] 8.9 mg/dL Normal 7.6-11.0 [facility] Comment on above: Performed By: #### L 100.0100, L500.2500, L300.3900, L3300.4400 ####[facility] [address] [place], [address] Chloride [Moles/Vol] 105 mmol/L Normal 98-108 [facility] Comment on above: Performed By: #### L 100.0100, L500.2500, L300.3900, L3300.4400 ####[facility] [address] [place], [address] CO2 [Moles/Vol] 22.4 mmol/L Normal 21.0-32.0 [facility] Comment on above: Performed By: #### L 100.0100, L500.2500, L300.3900, L3300.4400 ####[facility] [address] [place], [address] Creatinine [Mass/Vol] 1.00 mg/dL Normal 0.70-1.20 [facility] Comment on above: Performed By: #### L 100.0100, L500.2500, L300.3900, L3300.4400 ####[facility] [address] [place], [address] ECRCL 39.57 ml/min Low 50-250 [facility] Comment on above: Performed By: #### L 100.0100, L500.2500, L300.3900, L3300.4400 ####[facility] [address] [place], [address] GAP 11 Normal 5-15 [facility] Comment on above: Performed By: #### L 100.0100, L500.2500, L300.3900, L3300.4400 ####[facility] [address] [place], [address] GFR/1.73 sq M.predicted among non-blacks MDRD (S/P/Bld) [Vol rate/Area] 54 mL/min/{1.73_m2} Low >60 [facility] Comment on above: Result Comment: mL/m in/1.73m2 CKD-EPI Creatinine Equation (2020) Performed By: #### L 100.0100, L500.2500, L300.3900, L3300.4400 ####[facility] [address] [place], [address] Glucose [Mass/Vol] 149 mg/dL High 70-99 [facility] Comment on above: Performed By: #### L 100.0100, L500.2500, L300.3900, L3300.4400 ####[facility] [address] [place], [address] Potassium [Moles/Vol] 4.7 mmol/L Normal 3.3-5.1 [facility] Comment on above: Performed By: #### L 100.0100, L500.2500, L300.3900, L3300.4400 ####[facility] [address] [place], [address] Sodium [Moles/Vol] 138 mmol/L Normal 133-145 [facility] Comment on above: Performed By: #### L 100.0100, L500.2500, L300.3900, L3300.4400 ####[facility] [address] [place], [address] Urea nitrogen [Mass/Vol] 35 mg/dL High 4-19 [facility] Comment on above: Performed By: #### L 100.0100, L500.2500, L300.3900, L3300.4400 ####[facility] [address] [place], [address] Basophil percentageOrdered B y: Anoop Blackmon on 09-08-2024 Basophils/100 WBC (Bld) 0.2 % 0-1 [facility] CBC W/Diff, Automatedon 08-29 Absolute Lymph 2.21 X10 3/uL Normal 0.83-4.51 [facility] Comment on above: Performed By: #### L 100.0100, L500.2500, L300.3900, L3300.4400 #### [facility] [address] [place], [address] Absolute Neut 10.3 X10 3/uL High 2.0-7.7 [facility] Comment on above: Performed By: #### L 100.0100, L500.2500, L300.3900, L3300.4400 #### [facility] [address] [place], [address] Basophils/100 WBC (Bld) 0.2 % Normal 0-1 [facility] Comment on above: Performed By: #### L 100.0100, L500.2500, L300.3900, L3300.4400 #### [facility] [address] [place], [address] Eosinophils/100 WBC (Bld) 0.7 % Normal 0-5 [facility] Comment on above: Performed By: #### L 100.0100, L500.2500, L300.3900, L3300.4400 #### [facility] [address] [place], [address] Erythrocyte distribution width (RBC) [Ratio] 13.2 % Normal 11.6-14.6 [facility] Comment on above: Performed By: #### L 100.0100, L500.2500, L300.3900, L3300.4400 #### [facility] [address] [place], [address] Hematocrit (Bld) [Volume fraction] 41.4 % Normal 37-47 [facility] Comment on above: Performed By: #### L 100.0100, L500.2500, L300.3900, L3300.4400 #### [facility] [address] [place], [address] Hemoglobin (Bld) [Mass/Vol] 13.8 g/dL Normal 12.0-15.0 [facility] Comment on above: Performed By: #### L 100.0100, L500.2500, L300.3900, L3300.4400 #### [facility] [address] [place], [address] IG% 0.400 Normal 0.0-0.9 [facility] Comment on above: Result Comment: IG% - Immature Granulocytes (promyelocytes, myelocytes and metamyelocytes) > 1% indicates that a LEFT SHIFT is Present. Performed By: #### L 100.0100, L500.2500, L300.3900, L3300.4400 #### [facility] [address] [place], [address] Lymphocytes/100 WBC (Bld) 16.2 % Low 19-41 [facility] Comment on above: Performed By: #### L 100.0100, L500.2500, L300.3900, L3300.4400 #### [facility] [address] [place], [address] MCH (RBC) [Entitic mass] 31.4 pg Normal 27.0-32.0 [facility] Comment on above: Performed By: #### L 100.0100, L500.2500, L300.3900, L3300.4400 #### [facility] [address] [place], [address] MCHC (RBC) [Mass/Vol] 33.3 g/dL Normal 32-36 [facility] Comment on above: Performed By: #### L 100.0100, L500.2500, L300.3900, L3300.4400 #### [facility] [address] [place], [address] MCV (RBC) [Entitic vol] 94.1 fL Normal 81-99 [facility] Comment on above: Performed By: #### L 100.0100, L500.2500, L300.3900, L3300.4400 #### [facility] [address] [place], [address] Monocytes/100 WBC (Bld) 6.6 % Normal 0-10 [facility] Comment on above: Performed By: #### L 100.0100, L500.2500, L300.3900, L3300.4400 #### [facility] [address] [place], [address] Neutrophils/100 WBC (Bld) 75.9 % High 47-70 [facility] Comment on above: Performed By: #### L 100.0100, L500.2500, L300.3900, L3300.4400 #### [facility] [address] [place], [address] Nucleated RBC (Bld) [#/Vol] 0 10*3/uL Normal 0-5 [facility] Comment on above: Performed By: #### L 100.0100, L500.2500, L300.3900, L3300.4400 #### [facility] [address] [place], [address] Platelet mean volume (Bld) [Entitic vol] 10.8 fL Normal 6.2-12.0 [facility] Comment on above: Performed By: #### L 100.0100, L500.2500, L300.3900, L3300.4400 #### [facility] [address] [place], [address] Platelets (Bld) [#/Vol] 326 10*3/uL Normal 150-450 [facility] Comment on above: Performed By: #### L 100.0100, L500.2500, L300.3900, L3300.4400 #### [facility] [address] [place], [address] RBC (Bld) [#/Vol] 4.40 10*6/uL Normal 4.2-5.4 [facility] Comment on above: Performed By: #### L 100.0100, L500.2500, L300.3900, L3300.4400 #### [facility] [address] [place], [address] RDW SD 45.2 fl High 35.1-43.9 [facility] Comment on above: Performed By: #### L 100.0100, L500.2500, L300.3900, L3300.4400 #### [facility] [address] [place], [address] WBC (Bld) [#/Vol] 13.6 10*3/uL High 4.4-11.0 [facility] Comment on above: Performed By: #### L 100.0100, L500.2500, L300.3900, L3300.4400 #### [facility] [address] [place], [address] Carbon dioxide, total [Moles /volume] in Central venous bloodOrdered By: Anoop Blackmon on 09-08-2024 CO2 [Moles/Vol] 22.4 mmol/L 21.0-32.0 [facility] Chloride assayOrdered By: Monserrat Blackmon on 09-08-2024 Chloride [Moles/Vol] 105 mmol/L 98-108 [facility] Emergency Department Summary on 09-08-2024 Emergency Department Summary [facility] Medical Records Department [address] [place] [address] Emergency Department Summary 09/08/24 MR#: [id number] Acct: [id number] Name: EZRA GONZALEZ Rep #: [id number] : 1935 89 From: Anoop Blackmon MD [...] Spinal stenosis Osteoarthritis 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 Normal [facility] Eosinophil percentageOrdered By: Anoop Blackmon on 09-08-2024 Eosinophils/100 WBC (Bld) 0.7 % 0-5 [facility] Erythrocyte distribution wid th ratioOrdered By: Anoop Blackmon on 09-08-2024 Erythrocyte distribution width (RBC) [Ratio] 13.2 % 11.6-14.6 [facility] Erythrocyte distribution wid th standard deviationOrdered By: Anoop Blackmon on 09-08-2024 Erythrocyte distribution width (RBC) [Ratio] 45.2 fl High 35.1-43.9 [facility] Glomerular filtration rate ( GFR) estimation/1.73 sq m using serum, plasma, or whole bOrdered By: Anoop Blackmon on 09-08-2024 GFR/1.73 sq M.predicted among non-blacks MDRD (S/P/Bld) [Vol rate/Area] 54 mL/min/{1.73_m2} Low >60 [facility] Comment on above: mL/min/1.73m2 CKD-EP I Creatinine Equation (2020) Hematocrit Auto (Bld) [Volum e fraction]Ordered By: Anoop Blackmon on 09-08-2024 Hematocrit (Bld) [Volume fraction] 41.4 % 37-47 [facility] Hemoglobin measurementOrdere d By: Anoop Blackmon on 09-08-2024 Hemoglobin (Bld) [Mass/Vol] 13.8 g/dL 12.0-15.0 [facility] Immature granulocytes/100 WB C Auto (Bld)Ordered By: Anoopjacki Blackmon on 09-08-2024 Immature granulocytes/100 WBC (Bld) 0.400 % 0.0-0.9 [facility] Comment on above: IG% - Immature Granu locytes (promyelocytes, myelocytes and metamyelocytes) > 1% indicates that a LEFT SHIFT is Present. International normalized rat io (INR) calculationOrdered By: Anoop Blackmon on 09-08-2024 INR Coag (Bld) [Relative time] 2.9 {INR} [facility] MCV (mean corpuscular volume ) determinationOrdered By: Anoopjacki Blackmon on 09-08-2024 MCV (RBC) [Entitic vol] 94.1 fL 81-99 [facility] Mean corpuscular hemoglobin (MCH) determinationOrdered By: Anoopjacki Blackmon on 09-08-2024 MCH (RBC) [Entitic mass] 31.4 pg 27.0-32.0 [facility] Mean corpuscular hemoglobin concentration (MCHC) determinationOrdered By: Anoopjacki Blackmon on 09-08-2024 MCHC (RBC) [Mass/Vol] 33.3 g/dL 32-36 [facility] Mean platelet volume determi nationOrdered By: Anoopjacki Blackmon on 09-08-2024 Platelet mean volume (Bld) [Entitic vol] 10.8 fL 6.2-12.0 [facility] Monocyte percentageOrdered B y: Anoop Blackmon on 09-08-2024 Monocytes/100 WBC (Bld) 6.6 % 0-10 [facility] Neutrophil percentageOrdered By: Anoop Blackmon on 09-08-2024 Neutrophils/100 WBC (Bld) 75.9 % High 47-70 [facility] Nucleated red blood cell per centageOrdered By: Anoopjacki Blackmon on 09-08-2024 Nucleated RBC/100 WBC (Bld) [Ratio] 0 % 0-5 [facility] Platelet countOrdered By: Monserrat Blackmon on 09-08-2024 Platelets (Bld) [#/Vol] 326 10*3/uL 150-450 [facility] Potassium measurement (mass/ volume)Ordered By: Anoop Blackmon on 09-08-2024 Potassium (Unsp spec) [Mass/Vol] 4.7 mmol/L 3.3-5.1 [facility] Prothrombin Time w/INRon INR Coag (PPP) [Relative time] 2.9 {INR} Normal [facility] Comment on above: Performed By: #### L 100.0100, L500.2500, L300.3900, L3300.4400 ####[facility] [address] [place], [address] PT Coag (PPP) [Time] 30.7 s High 11.7-14.9 [facility] Comment on above: Performed By: #### L 100.0100, L500.2500, L300.3900, L3300.4400 ####[facility] [address] [place], [address] Prothrombin timeOrdered By: Anoop Blackmon on 09-08-2024 PT Coag (PPP) [Time] 30.7 s High 11.7-14.9 [facility] RBC Auto (Bld) [#/Vol]Ordere d By: Anoop Blackmon on 09-08-2024 RBC (Bld) [#/Vol] 4.40 10*6/uL 4.2-5.4 [facility] Serum creatinine measurement (mass/volume)Ordered By: Anoop Blackmon on 09-08-2024 Creatinine [Mass/Vol] 1.00 mg/dL 0.70-1.20 [facility] Serum glucose measurement (m ass/volume)[facility] Glucose [Mass/Vol] 149 mg/dL High 70-99 [facility] Serum or plasma calcium viktoria urement (mass/volume)Ordered By: Anoop Blackmon on 09-08-2024 Calcium [Mass/Vol] 8.9 mg/dL 7.6-11.0 [facility] Serum or plasma lamotrigine measurement (mass/volume)Ordered By: Anoop Blackmon on 09-08-2024 lamoTRIgine [Mass/Vol] 1.2 ug/mL Low 2.0-20.0 [facility] Comment on above: Detection Limit = 1. 0Performed at: [facility] [id number] Director: Brandon Wells MD, Phone: [phone] Serum or plasma urea nitroge n measurement (mass/volume)Ordered By: Anoop Blackmon on 09-08-2024 Urea nitrogen [Mass/Vol] 35 mg/dL High 4-19 [facility] Sodium [facility]Ordered By: [facility] on 09-08-20[facility] Sodium [Moles/Vol] 138 mmol/L 133-145 [facility] White blood cell (WBC) count Ordered By: Anoopjacki Blackmon on 09-08-2024 WBC (Bld) [#/Vol] 13.6 10*3/uL High 4.4-11.0 [facility] International normalized rat io (INR) calculationOrdered By: Westmoreland Douglas on 08-18-2024 INR Coag (Bld) [Relative time] 2.6 {INR} [facility] Prothrombin timeOrdered By: Westmoreland Douglas on 08-18-2024 PT Coag (PPP) [Time] 28.1 s High 11.7-14.9 [facility] International normalized rat io (INR) calculationOrdered By: Westmoreland Douglas on 07-19-2024 INR Coag (Bld) [Relative time] 2.2 {INR} [facility] Prothrombin timeOrdered By: Westmoreland Douglas on 07-19-2024 PT Coag (PPP) [Time] 25.3 s High 11.7-14.9 [facility] Cardiology Visit Reporton Cardiology Visit Report [facility] [address] [place] [address] OFFICE VISIT Date of Service: 07/01/24 MR#: [id number] Acct: [id number] Name: EZRA GONZALEZ Rep #: [id number] : 1935 Provider: Dr. Cesar Cole MD [...] atrial fibrillation. She is a reside at [facility]. 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 Normal [facility] International normalized rat io (INR) calculationOrdered By: Kvng Ochoa on 06-16-2024 INR Coag (Bld) [Relative time] 2.4 {INR} [facility] Prothrombin timeOrdered By: Kvng Ochoa on 06-16-2024 PT Coag (PPP) [Time] 26.6 s High 11.7-14.9 [facility] Absolute lymphocyte countOrd ered By: Kvng Ochoa on 06-09-2024 Lymphocytes Auto (Unsp spec) [#/Vol] 2.06 10*3/uL 0.83-4.51 [facility] Absolute neutrophil countOrd ered By: Kvng Ochoa on 06-09-2024 Neutrophils (Bld) [#/Vol] 5.6 10*3/uL 2.0-7.7 [facility] Anion gap in Serum or Plasma Ordered By: Kvng Ochoa on 06-09-2024 Anion gap [Moles/Vol] 13 mmol/L 5-15 [facility] Automated lymphocyte count a s percentage of total leukocytesOrdered By: Kvng Ochoa on 06-09-2024 Lymphocytes/100 WBC Auto (Unsp spec) 23.0 % 19-41 [facility] BUN/creatinine ratioOrdered By: Kvng Ochoa on 03-12-2025 Urea nitrogen/Creatinine [Mass ratio] 21.5 mg/mg High 10-20 [facility] Basophil percentageOrdered B y: Kvng Ochoa on 06-09-2024 Basophils/100 WBC (Bld) 0.6 % 0-1 [facility] Carbon dioxide, total [Moles /volume] in Central venous bloodOrdered By: Kvng Ochoa on 06-09-2024 CO2 [Moles/Vol] 22.4 mmol/L 21.0-32.0 [facility] Chloride assayOrdered By: Costa Ochoa on 06-09-2024 Chloride [Moles/Vol] 108 mmol/L 98-108 [facility] Eosinophil percentageOrdered By: Kvng Ochoa on 06-09-2024 Eosinophils/100 WBC (Bld) 4.8 % 0-5 [facility] Erythrocyte distribution wid th ratioOrdered By: Kvng Ochoa on 06-09-2024 Erythrocyte distribution width (RBC) [Ratio] 14.6 % 11.6-14.6 [facility] Erythrocyte distribution wid th standard deviationOrdered By: Kvng Ochoa on 06-09-2024 Erythrocyte distribution width (RBC) [Entitic vol] 49.2 fL High 35.1-43.9 [facility] Erythrocyte distribution width (RBC) [Ratio] 49.2 fl High 35.1-43.9 [facility] GFR/1.73 sq M.predicted sonia g non-blacks MDRD (S/P/Bld) [Vol rate/Area]Ordered By: Kvng Ochoa on 06-09-2024 Estimated GFR (MDRD) Non-Af Amer 59 Low >60 [facility] Comment on above: mL/min/1.73m2 CKD-EP I Creatinine Equation (2020) Glomerular filtration rate ( GFR) estimation/1.73 sq m using serum, plasma, or whole bOrdered By: Kvng Ochoa on 06-09-2024 GFR/1.73 sq M.predicted among non-blacks MDRD (S/P/Bld) [Vol rate/Area] 59 mL/min/{1.73_m2} Low >60 [facility] Comment on above: mL/min/1.73m2 CKD-EP I Creatinine Equation (2020) Hematocrit Auto (Bld) [Volum e fraction]Ordered By: Kvng Ochoa on 06-09-2024 Hematocrit (Bld) [Volume fraction] 38.3 % 37-47 [facility] Hemoglobin A1c percentageOrd ered By: Kvng Ochoa on 06-09-2024 HbA1c (Bld) [Mass fraction] 6.5 % >5.7 [facility] Hemoglobin measurementOrdere d By: Kvng Ochoa on 06-09-2024 Hemoglobin (Bld) [Mass/Vol] 12.4 g/dL 12.0-15.0 [facility] Immature granulocytes/100 WB C Auto (Bld)Ordered By: Kvng Ochoa on 06-09-2024 Immature granulocytes/100 WBC (Bld) 0.200 % 0.0-0.9 [facility] Comment on above: IG% - Immature Granu locytes (promyelocytes, myelocytes and metamyelocytes) > 1% indicates that a LEFT SHIFT is Present. Lymphocytes Auto (Unsp spec) [#/Vol]Ordered By: Kvng Ochoa on 06-09-2024 Lymphocytes (Bld) [#/Vol] 2.06 10*3/uL 0.83-4.5 1 [facility] Lymphocytes/100 WBC Auto (Un sp spec)Ordered By: Kvng Ochoa on 06-09-2024 Lymphocytes/100 WBC (Bld) 23.0 % 19-41 [facility] MCV (mean corpuscular volume ) determinationOrdered By: Kvng Ochoa on 06-09-2024 MCV (RBC) [Entitic vol] 91.8 fL 81-99 [facility] Mean corpuscular hemoglobin (MCH) determinationOrdered By: Kvng Ochoa on 06-09-2024 MCH (RBC) [Entitic mass] 29.7 pg 27.0-32.0 [facility] Mean corpuscular hemoglobin concentration (MCHC) determinationOrdered By: Kvng Ochoa on 06-09-2024 MCHC (RBC) [Mass/Vol] 32.4 g/dL 32-36 [facility] Mean platelet volume determi nationOrdered By: Kvng Ochoa on 06-09-2024 Platelet mean volume (Bld) [Entitic vol] 10.2 fL 6.2-12.0 [facility] Monocyte percentageOrdered B y: Kvng Ochoa on 06-09-2024 Monocytes/100 WBC (Bld) 8.6 % 0-10 [facility] Neutrophil percentageOrdered By: Kvng Ochoa on 06-09-2024 Neutrophils/100 WBC (Bld) 62.8 % 47-70 [facility] Nucleated red blood cell per centageOrdered By: Kvng Ochoa on 06-09-2024 Nucleated RBC/100 WBC (Bld) [Ratio] 0 % 0-5 [facility] Platelet countOrdered By: Costa Ochoa on 06-09-2024 Platelets (Bld) [#/Vol] 323 10*3/uL 150-450 [facility] Potassium (Unsp spec) [Mass/ Vol]Ordered By: Kvng Ochoa on 06-09-2024 Potassium [Moles/Vol] 4.7 mmol/L 3.3-5.1 [facility] Potassium measurement (mass/ volume)Ordered By: Kvng Ochoa on 06-09-2024 Potassium (Unsp spec) [Mass/Vol] 4.7 mmol/L 3.3-5.1 [facility] RBC Auto (Bld) [#/Vol]Ordere d By: Kvng Ochoa on 06-09-2024 RBC (Bld) [#/Vol] 4.17 10*6/uL Low 4.2-5.4 [facility] Serum creatinine measurement (mass/volume)Ordered By: Kvng Ochoa on 06-09-2024 Creatinine [Mass/Vol] 0.94 mg/dL 0.70-1.20 [facility] Serum glucose measurement (m ass/volume)Ordered By: Kvng Ochoa on 06-09-2024 Glucose [Mass/Vol] 137 mg/dL High 70-99 [facility] Serum or plasma calcium viktoria urement (mass/volume)Ordered By: Kvng Ochoa on 06-09-2024 Calcium [Mass/Vol] 8.9 mg/dL 7.6-11.0 [facility] Serum or plasma urea nitroge n measurement (mass/volume)Ordered By: Kvng Ochoa on 06-09-2024 Urea nitrogen [Mass/Vol] 20 mg/dL High 4-19 [facility] Sodium levelOrdered By: Dru Ochoa on 06-09-2024 Sodium [Moles/Vol] 143 mmol/L 133-145 [facility] White blood cell (WBC) count Ordered By: Kvng Ochoa on 06-09-2024 WBC (Bld) [#/Vol] 9.0 10*3/uL 4.4-11.0 [facility] INR Coag (BldC) [Relative ti me]Ordered By: Cesar Cole on 05-19-2024 INR Coag (Bld) [Relative time] 2.9 {INR} [facility] Comment on above: Critical Value > 4.0 International normalized rat io (INR) measurement by fingerstickOrdered By: Cesar Cole on 05-19-2024 INR Coag (BldC) [Relative time] 2.9 [facility] Comment on above: Critical Value > 4.0 PT Coag (Bld) [Time]Ordered By: Cesar Cole on 05-19-2024 Bedside Prothrombin Time 30.4 SEC High 11.7-14.9 [facility] Whole blood prothrombin time Ordered By: Cesar Cole on 05-19-2024 PT Coag (Bld) [Time] 30.4 s High 11.7-14.9 [facility] Serum or plasma lamotrigine measurement (mass/volume)Ordered By: Anant Juarez on 05-12-2024 lamoTRIgine [Mass/Vol] 1.8 ug/mL Low 2.0-20.0 [facility] Comment on above: Detection Limit = 1. 0Performed at: [facility] [id number] Director: Brandon Wells MD, Phone: [phone] Venous blood ammonia measure mentOrdered By: Anant Juarez on 05-12-2024 Ammonia (P) [Moles/Vol] 17.0 umol/L 11-32 [facility] lamoTRIgine [Mass/Vol]Ordere d By: Anant Juarez on 05-12-2024 Lamotrigine (Lamictal) Level 1.8 ug/mL Low 2.0-20.0 [facility] Comment on above: Detection Limit = 1. 0Performed at: [facility] [address] [id number] Director: Brandon Wells MD, Phone: [phone] Neurology Visit Reporton Neurology Visit Report [facility] [address], [address] [place] [address] OFFICE VISIT Date of Service: 05/10/24 MR#: [id number] Acct: [id number] Name: EZRA GONZALEZ Rep #: [id number] : 1935 Provider: Dr. 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 She has become lost while driving [...] nature. Th (more content not included)... Normal [facility] INR Coag (BldC) [Relative ti me]Ordered By: Cesar Cole on 05-05-2024 INR Coag (Bld) [Relative time] 2.5 {INR} [facility] Comment on above: Critical Value > 4.0 PT Coag (Bld) [Time]Ordered By: Cesar Cole on 05-05-2024 Bedside Prothrombin Time 26.9 SEC High 11.7-14.9 [facility] International normalized rat io (INR) calculationOrdered By: Kvng Ochoa on 04-28-2024 INR Coag (Bld) [Relative time] 3.4 {INR} [facility] Prothrombin timeOrdered By: Kvng Ochoa on 04-28-2024 PT Coag (PPP) [Time] 35.4 s High 11.7-14.9 [facility] International normalized rat io (INR) calculationOrdered By: Kvng Ochoa on 04-14-2024 INR Coag (Bld) [Relative time] 3.0 {INR} [facility] Prothrombin timeOrdered By: Kvng Ochoa on 04-14-2024 PT Coag (PPP) [Time] 31.4 s High 11.7-14.9 [facility] Blood urea nitrogen (BUN)/cr eatinine ratioOrdered By: Kvng Ochoa on 04-09-2024 Urea nitrogen/Creatinine [Mass ratio] 13.5 mg/mg 10-20 [facility] Carbon dioxide measurementOr dered By: Kvng Ochoa on 04-09-2024 CO2 [Moles/Vol] 28.0 mmol/L 21.0-32.0 [facility] Chloride measurementOrdered By: Kvng Ochoa on 04-09-2024 Chloride [Moles/Vol] 106 mmol/L 98-107 [facility] Estimated glomerular filtrat ion rate (GFR) AmericanOrdered By: Kvng Ochoa on 04-09-2024 Estimated GFR (MDRD) Amer 70 mL/min >60 [facility] Comment on above: GFR Calc Glomerular filtration rate ( GFR) estimationOrdered By: Kvng Ochoa on 04-09-2024 Estimated GFR (MDRD) Non-Af Amer 58 mL/min Low >60 [facility] Comment on above: Non- GFR Calc Glucose measurementOrdered B y: Kvng Ochoa on 04-09-2024 Glucose [Mass/Vol] 116 mg/dL High 74-106 [facility] Comment on above: Fasting Glucose resu lt from 100 to 125 mg/dL suggests IMPAIRED HOMEOSTASIS per A.D.A. criteria. Potassium measurementOrdered By: Kvng Ochoa on 04-09-2024 Potassium [Moles/Vol] 4.3 mmol/L 3.5-5.1 [facility] Serum anion gap measurementO rdered By: Kvng Ochoa on 04-09-2024 Anion gap [Moles/Vol] 3 mmol/L Low 5-15 [facility] Serum or plasma calcium viktoria urement (mass/volume)Ordered By: Kvng Ochoa on 04-09-2024 Calcium [Mass/Vol] 8.8 mg/dL 8.5-10.1 [facility] Serum or plasma creatinine m easurement (mass/volume)Ordered By: Kvng Ochoa on 04-09-2024 Creatinine [Mass/Vol] 0.96 mg/dL 0.55-1.02 [facility] Comment on above: The validity of the calculated GFR & GFRAA in patients over 70 years has not been determined. Clinical correlation is essential. Serum or plasma urea nitroge n measurement (mass/volume)Ordered By: Kvng Ochoa on 04-09-2024 Urea nitrogen [Mass/Vol] 13 mg/dL 7-18 [facility] Sodium levelOrdered By: Dru Ochoa on 04-09-2024 Sodium [Moles/Vol] 137 mmol/L 136-145 [facility] International normalized rat io (INR) calculationOrdered By: Kvng Ochoa on 04-06-2024 INR Coag (Bld) [Relative time] 2.6 {INR} [facility] Prothrombin timeOrdered By: Kvng Ochoa on 04-06-2024 PT Coag (PPP) [Time] 28.8 s High 11.7-14.9 [facility] INR Coag (BldC) [Relative ti me]Ordered By: Kvng Ochoa on 04-05-2024 INR Coag (Bld) [Relative time] 3.5 {INR} [facility] Comment on above: Critical Value > 4.0 PT Coag (Bld) [Time]Ordered By: Kvng Ochoa on 04-05-2024 Bedside Prothrombin Time 35.4 SEC High 11.7-14.9 [facility] International normalized rat io (INR) calculationOrdered By: Kvng Ochoa on 03-29-2024 INR Coag (Bld) [Relative time] 1.5 {INR} [facility] Prothrombin timeOrdered By: Kvng Ochoa on 03-29-2024 PT Coag (PPP) [Time] 17.9 s High 11.7-14.9 [facility] INR Coag (BldC) [Relative ti me]Ordered By: Kvng Ochoa on 03-26-2024 INR Coag (Bld) [Relative time] 3.4 {INR} [facility] Comment on above: Critical Value > 4.0 PT Coag (Bld) [Time]Ordered By: Kvng Ochoa on 03-26-2024 Bedside Prothrombin Time 34.4 SEC High 11.7-14.9 [facility] INR Coag (BldC) [Relative ti me]Ordered By: Kvng Ochoa on 03-25-2024 INR Coag (Bld) [Relative time] 3.8 {INR} [facility] Comment on above: Critical Value > 4.0 PT Coag (Bld) [Time]Ordered By: Kvng Ochoa on 03-25-2024 Bedside Prothrombin Time 37.8 SEC High 11.7-14.9 [facility] International normalized rat io (INR) calculationOrdered By: Kvng Ochoa on 03-19-2024 INR Coag (Bld) [Relative time] 3.0 {INR} [facility] Prothrombin timeOrdered By: Kvng Ochoa on 03-19-2024 PT Coag (PPP) [Time] 30.7 s High 11.7-14.9 [facility] INR Coag (BldC) [Relative ti me]Ordered By: Kvng Ochoa on 03-17-2024 INR Coag (Bld) [Relative time] 3.3 {INR} [facility] Comment on above: Critical Value > 4.0 PT Coag (Bld) [Time]Ordered By: Kvng Ochoa on 03-17-2024 Bedside Prothrombin Time 34.2 SEC High 11.7-14.9 [facility] INR Coag (BldC) [Relative ti me]Ordered By: Kvng Ochoa on 03-10-2024 INR Coag (Bld) [Relative time] 2.4 {INR} [facility] Comment on above: Critical Value > 4.0 PT Coag (Bld) [Time]Ordered By: Kvng Ochoa on 03-10-2024 Bedside Prothrombin Time 25.4 SEC High 11.7-14.9 [facility] International normalized rat io (INR) calculationOrdered By: Kvng Ochoa on 03-08-2024 INR Coag (Bld) [Relative time] 1.8 {INR} [facility] Prothrombin timeOrdered By: Kvng Ochoa on 03-08-2024 PT Coag (PPP) [Time] 21.1 s High 11.7-14.9 [facility] INR Coag (BldC) [Relative ti me]Ordered By: Kvng Ochoa on 03-04-2024 INR Coag (Bld) [Relative time] 1.8 {INR} [facility] Comment on above: Critical Value > 4.0 PT Coag (Bld) [Time]Ordered By: Kvng Ochoa on 03-04-2024 Bedside Prothrombin Time 20.2 SEC High 11.7-14.9 [facility] INR Coag (BldC) [Relative ti me]Ordered By: Kvng Ochoa on 02-05-2024 INR Coag (Bld) [Relative time] 2.2 {INR} [facility] Comment on above: Critical Value > 4.0 PT Coag (Bld) [Time]Ordered By: Kvng Ochoa on 02-05-2024 Bedside Prothrombin Time 22.8 SEC High 11.7-14.9 [facility] Capillary blood internationa l normalized ratio (INR)Ordered By: Alexandra Hagen on 04-01-2024 INR Coag (BldC) [Relative time] 2.4 [facility] Comment on above: Critical Value > 4.0 Whole blood prothrombin time Ordered By: Alexandra Hagen on 06-30-2023 PT Coag (Bld) [Time] 24.6 s 11.7-14.9 [facility] CARECOORDon 2023 CARECOORD Patient Choice Patient Name: EZRA GONZALEZ Date of : 1935 [facility] CARECOORDon 06-20-2023 [place] Next Site of Care Admission Date: 06/16/2023 01:38 PM Patient Name: EZRA GONZALEZ Location: [address] [id number] Date of : 1935 ------- Placement Information ------- Referral Type:Home Health Care Services - New Referral ID:[id number] Provider Name:[facility] Address 1:[address] Address 2: City:[place] Selection Factors:Patient/Famil y Choice State:[place] Normal [facility] [place]ECOISLESFORD TCC updated SW, pt i s requesting [...] pt order lunch. 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 . [facility] [place] I SPOKE WITH DONOVAN, ROLL FORMER AT [facility]. THEY CAN TAKE PT BACK TODAY. THEY CAN PROVIDE TRANSPORTATION BACK TO FACILITY AROUND 3 PM. AWARE PT WILL NEED PT AT FACILITY, THEY USE [facility] PagoFacil, DID LET HC LIAISON NOW. WENT TO [...] SECURE CHAT WITH CONNIE PEREZ REGARDING THIS. [facility] Laboratory - Chemistry and C hemistry - challengeon 06-20-2023 Glucose [Mass/Vol] 125 mg/dL High 70 - 100 mg/dL [facility] - Coagulationon 0 06-20-2023 PT Coag (Bld) [Time] 11.3 s 9.0 - 12.0 s [facility] No Panel Informationon 06-19 Interpretation and review of laboratory results Abnormal [facility] Performed by: [facility], [address] [place] [address] CLIA ID: [id number] [facility] Radiology Study observation (narrative) Trina isabel PROTHROMBIN TIMEon INR Coag (PPP) [Relative time] 1.1 {INR} Normal 0.9-1.1 [facility] Comment on above: Result Comment: [...] Myocardial Infarction Performed By: #### Akanksha [id number] ####Chemical Processor: ALEXANDRA BUSTAMANTE ([id number])[facility] [place] [address] PT Coag (PPP) [Time] 11.3 s Normal 9.0-12.0 [facility] Comment on above: Performed By: #### Akanksha [id number] ####Chemical Processor: ALEXANDRA BUSTAMANTE ([id number])[facility] ([facility])[address] [place] [address] PT Coag (Bld) [Time]on 06-19 INR Coag (PPP) [Relative time] 1.1 {INR} 0.9 - 1.1 [facility] Comment on above: Recommended Anticoag ulant Therapy: [...] Interpretation and review of laboratory results Normal [facility] Progress Noteon 06-20-2023 Progress Note Dc via DM cot to Josep MCARTHUR with all belongings [facility] Progress Note Called report to Maryanne at [facility] Progress Note [facility] Anticoagulatio n Management Service (RIA) Inpatient Warfarin Consult HPI: Ezra Gonzalez is a 87 y.o. female admitted on 06/16/2023 for Closed displaced fracture of medial condyle of right humerus, initial encounter [S42.867F] History reviewed. No pertinent past medical history. [...] patient can be classified as high risk ([id number] = 8). 2. Monitor for s/s of bleeding and drug interactions. Will adjust dose accordingly 3. RIA will manage while inpatient Dc Lombardi, JpD Candidate Jp BolanosD, [facility] RIA is available daily [phone] via [employer] Chat. If no response on [employer] Chat then please page [phone]. Normal [facility] BASIC METABOLIC PANELon 05-30 Anion gap [Moles/Vol] 11 mmol/L Normal 3-13 [facility] Comment on above: Performed By: #### L [id number] ####Chemical Processor: ALEXANDRA BUSTAMANTE ([id number])[facility] ([id number] Calcium [Mass/Vol] 8.3 mg/dL Low 8.4-10.4 [facility] Comment on above: Performed By: #### L [id number] ####Chemical Processor: ALEXANDRA BUSTAMANTE ([id number])[facility] ([facility])[address] [place] [address] Chloride [Moles/Vol] 102 mmol/L Normal 98-107 [facility] Comment on above: Performed By: #### L AB15 ####Chemical Processor: ALEXANDRA BUSTAMANTE ([id number])[facility] [place] [address] CO2 [Moles/Vol] 21 mmol/L Low 22-30 [facility] Comment on above: Performed By: #### L AB15 ####Chemical Processor: ALEXANDRA BUSTAMANTE ([id number])[facility] ([facility])[address] [place] [address] Creatinine [Mass/Vol] 0.84 mg/dL Normal 0.52-1.04 [facility] Comment on above: Performed By: #### L AB15 ####Chemical Processor: ALEXANDRA BUSTAMANTE ([id number])[facility] ([facility])[address] [place] [address] [place] GLOMERULAR FILTRATION RATE ML/MIN/1.73 SQ M.PREDICTED 67.4 mL/min/1.73m*2 Normal >60.0 [facility] Comment on above: Result Comment: Calc ulation based on the Chronic Kidney Disease Epidemiology Collaboration (CKD-EPI) equation refit without adjustment for race Performed By: #### L AB15 ####Chemical Processor: ALEXANDRA BUSTAMANTE ([id number])[facility] ([facility])[address] [place] [address] [place] Glucose [Mass/Vol] 263 mg/dL High 70-100 [facility] Comment on above: Performed By: #### L AB15 ####Chemical Processor: ALEXANDRA BUSTAMANTE ([id number])[facility] ([facility])[address] [place] [address] Potassium [Moles/Vol] 4.7 mmol/L Normal 3.5-5.1 [facility] Comment on above: Performed By: #### L AB15 ####Chemical Processor: ALEXANDRA BUSTAMANTE ([id number])[facility] ([facility])[address] [place] [address] Sodium [Moles/Vol] 133 mmol/L Low 135-145 [facility] Comment on above: Performed By: #### L AB15 ####Chemical Processor: ALEXANDRA BUSTAMANTE ([id number])[facility] ([facility])[address] [place] [address] Urea nitrogen [Mass/Vol] 27 mg/dL High 7-17 [facility] Comment on above: Performed By: #### L AB15 ####Chemical Processor: ALEXANDRA BUSTAMANTE ([id number])[facility] ([facility])[address] [place] [address] Basic metabolic 1998 panelon 06-19-2023 Anion gap [Moles/Vol] 11 mmol/L 3 - 13 mmol/L [facility] Calcium [Mass/Vol] 8.3 mg/dL Low 8.4 - 10. 4 mg/dL [facility] Chloride [Moles/Vol] 102 mmol/L 98 - 10 7 mmol/L [facility] CO2 [Moles/Vol] 21 mmol/L Low 22 - 30 mmol/L [facility] Creatinine [Mass/Vol] 0.84 mg/dL 0.52 - 1.04 mg/dL [facility] GFR/1.73 sq M.predicted MDRD (S/P/Bld) [Vol rate/Area] 67.4 mL/min/{1.73_m2} - PINF [facility] Comment on above: Calculation based on the Chronic Kidney Disease Epidemiology Collaboration (CKD-EPI) equation refit without adjustment for race Glucose [Mass/Vol] 263 mg/dL High 70 - 100 mg/dL [facility] Interpretation and review of laboratory results Abnormal [facility] Potassium [Moles/Vol] 4.7 mmol/L 3.5 - 5.1 mmol/L [facility] Sodium [Moles/Vol] 133 mmol/L Low 135 - 145 mmol/L [facility] Urea nitrogen [Mass/Vol] 27 mg/dL High 7 - 17 mg/d L [facility] CARECOORDon 06-19-2023 CARECOORD DAY #1 S/P ORIF OF RIGHT ARM. WAITING FOR PT/OT EVALS FOR DC PLANNING. Normal [facility] CBC W Auto Differential pane l (Bld)Ordered By: Leona Thakur on 06-19-2023 Basophils (Bld) [#/Vol] 0.0 10*3/uL 0.0 - 0.2 10*3/uL [facility] Basophils/100 WBC (Bld) 0.2 % 0.0 - 2.0 % [facility] Eosinophils (Bld) [#/Vol] 0.0 10*3/uL 0. 0 - 0.5 10*3/uL [facility] Eosinophils/100 WBC (Bld) 0.0 % 0.0 - 6.0 % [facility] Erythrocyte distribution width (RBC) [Ratio] 13.6 % 11.5 - 15.0 % [facility] Hematocrit (Bld) [Volume fraction] 35.0 % 35.0 - 47.0 % [facility] Hemoglobin (Bld) [Mass/Vol] 11.4 g/dL Low 11.7 - 16.0 g/dL [facility] Immature granulocytes (Bld) [#/Vol] 0.1 10*3/uL High NINF - 0.1 10*3/uL [facility] Immature granulocytes/100 WBC (Bld) 0.6 % 0.0 - 2.0 % [facility] Interpretation and review of laboratory results Abnormal [facility] th Lymphocytes (Bld) [#/Vol] 0.8 10*3/uL Low 1. 0 - 4.3 10*3/uL [facility] Lymphocytes/100 WBC (Bld) 6.4 % Low 15 .0 - 45.0 % [facility] MCH (RBC) [Entitic mass] 28.6 pg 26. 0 - 34.0 pg [facility] MCHC (RBC) [Mass/Vol] 32.6 % 30.5 - 36.0 % [facility] MCV (RBC) [Entitic vol] 87.9 fL 77.0 - 99.0 fL [facility] Monocytes (Bld) [#/Vol] 0.6 10*3/uL 0.0 - 0.9 10*3/uL [facility] Monocytes/100 WBC (Bld) 4.6 % Low 5.0 - 13.0 % [facility] Neutrophils (Bld) [#/Vol] 11.2 10*3/uL High 1. 8 - 7.5 10*3/uL [facility] Neutrophils/100 WBC (Bld) 88.2 % High 38 .0 - 82.0 % [facility] Nucleated RBC/100 WBC (Bld) [Ratio] 0.0 % [facility] Platelet mean volume (Bld) [Entitic vol] 10.2 fL 9.0 - 12.7 fL [facility] Platelets (Bld) [#/Vol] 260 10*3/uL 140 - 440 10*3/uL [facility] RBC (Bld) [#/Vol] 3.98 10*6/uL 3.80 - 5.2 0 10*6/uL [facility] WBC (Bld) [#/Vol] 12.7 10*3/uL High 3.6 - 10.7 10*3/uL [facility] CBC WITH AUTO DIFFERENTIALon 06-19-2023 Basophils (Bld) [#/Vol] 0.0 10*3/uL Normal 0.0-0.2 [facility] Comment on above: Performed By: #### L [id number] ####Chemical Processor: ALEXANDRA BUSTAMANTE ([id number])[facility] ([facility])[address] [place] [address] Basophils/100 WBC (Bld) 0.2 % Normal 0.0-2.0 [facility] Comment on above: Performed By: #### L [id number] ####Chemical Processor: ALEXANDRA BUSTAMANTE ([id number])[facility] ([facility])[address] [place] [address] [place] Eosinophils (Bld) [#/Vol] 0.0 10*3/uL Normal 0.0-0.5 [facility] Comment on above: Performed By: #### L [id number] ####Chemical Processor: ALEXANDRA BUSTAMANTE ([id number])[facility] ([facility])[address] [place] [address] [place] Eosinophils/100 WBC (Bld) 0.0 % Normal 0.0-6.0 [facility] Comment on above: Performed By: #### L [id number] ####Chemical Processor: ALEXANDRA BUSTAMANTE ([id number])[address] Erythrocyte distribution width (RBC) [Ratio] 13.6 % Normal 11.5-15.0 [facility] Comment on above: Performed By: #### L [id number] ####Chemical Processor: ALEXANDRA BUSTAMANTE ([id number])[address] Hematocrit (Bld) [Volume fraction] 35.0 % Normal 35.0-47.0 [facility] Comment on above: Performed By: #### L [id number] ####Chemical Processor: ALEXANDRA BUSTAMANTE ([id number])[address] Hemoglobin (Bld) [Mass/Vol] 11.4 g/dL Low 11.7-16.0 [facility] Comment on above: Performed By: #### L [id number] ####Chemical Processor: ALEXANDRA BUSTAMANTE ([id number])[address] IMMATURE GRANS % 0.6 % Normal 0.0-2.0 [facility] Comment on above: Performed By: #### L [id number] ####Chemical Processor: ALEXANDRA BUSTAMANTE ([id number])[address] IMMATURE GRANS ABSOLUTE 0.1 10*3/uL High <0.1 [facility] Comment on above: Performed By: #### L [id number] ####Chemical Processor: ALEXANDRA BUSTAMANTE ([id number])[address] Lymphocytes (Bld) [#/Vol] 0.8 10*3/uL Low 1.0-4.3 [facility] Comment on above: Performed By: #### L [id number] ####Chemical Processor: ALEXANDRA BUSTAMANTE ([id number])[facility])[address] [place] [address] Lymphocytes/100 WBC (Bld) 6.4 % Low 15.0-45.0 [facility] Comment on above: Performed By: #### L [id number] ####Chemical Processor: ALEXANDRA BUSTAMANTE ([id number])[facility])[address] [place] [address] [facility] ([facility]) [Entitic mass] 28.6 pg Normal 26.0-34.0 [facility] Comment on above: Performed By: #### L [id number] ####Chemical Processor: ALEXANDRA BUSTAMANTE ([id number])[facility])[address] [place] [address] MCHC 32.6 % Normal 30.5-36.0 [facility] Comment on above: Performed By: #### L [id number] ####Chemical Processor: ALEXANDRA BUSTAMANTE ([id number])[facility])[address] [place] [address] MCV (RBC) [Entitic vol] 87.9 fL Normal 77.0-99.0 [facility] Comment on above: Performed By: #### L [id number] ####Chemical Processor: ALEXANDRA BUSTAMANTE ([id number])[facility])[address] [place] [address] Monocytes (Bld) [#/Vol] 0.6 10*3/uL Normal 0.0-0.9 [facility] Comment on above: Performed By: #### L [id number] ####Chemical Processor: ALEXANDRA BUSTAMANTE ([id number])[facility])[address] [place] [address] Monocytes/100 WBC (Bld) 4.6 % Low 5.0-13.0 [facility] Comment on above: Performed By: #### L [id number] ####Chemical Processor: ALEXANDRA BUSTAMANTE ([id number])[facility])[address] [place] [address] NEUTROPHILS ABSOLUTE 11.2 10*3/uL High 1.8-7.5 [facility] Comment on above: Performed By: #### L [id number] ####Chemical Processor: ALEXANDRA BUSTAMANTE ([id number])[facility] ([facility])[address] [place] [address] Neutrophils/100 WBC (Bld) 88.2 % High 38.0-82.0 [facility] Comment on above: Performed By: #### L [id number] ####Chemical Processor: ALEXANDRA BUSTAMANTE ([id number])[facility] ([facility])[address] [place] [address] NRBC 0.0 /100 WBCs Normal 0.0-2.0 [facility] Comment on above: Performed By: #### L [id number] ####Chemical Processor: ALEXANDRA BUSTAMANTE ([id number])[facility] ([facility])[address] [place] [address] Platelet mean volume (Bld) [Entitic vol] 10.2 fL Normal 9.0-12.7 [facility] Comment on above: Performed By: #### L [id number] ####Chemical Processor: ALEXANDRA BUSTAMANTE ([id number])[facility] ([facility])[address] [place] [address] Platelets (Bld) [#/Vol] 260 10*3/uL Normal 140-440 [facility] Comment on above: Performed By: #### L [id number] ####Chemical Processor: ALEXANDRA BUSTAMANTE ([id number])[facility] ([facility])[address] [place] [address] RBC (Bld) [#/Vol] 3.98 10*6/uL Normal 3.80-5.20 [facility] Comment on above: Performed By: #### L [id number] ####Chemical Processor: ALEXANDRA BUSTAMANTE ([id number])[facility] ([facility])[address] [place] [address] [place] WBC (Bld) [#/Vol] 12.7 10*3/uL High 3.6-10.7 [facility] Comment on above: Performed By: #### L [id number] ####Chemical Processor: ALEXANDRA BUSTAMANTE ([id number])[facility] ([facility])[address] [place] [address] Laboratory - Chemistry and C hemistry - challengeon 06-19-2023 Glucose [Mass/Vol] 220 mg/dL High 70 - 100 mg/dL [facility] Glucose [Mass/Vol] 137 mg/dL High 70 - 100 mg/dL [facility] Glucose [Mass/Vol] 141 mg/dL High 70 - 100 mg/dL [facility] Glucose [Mass/Vol] 177 mg/dL High 70 - 100 mg/dL [facility] Laboratory - Coagulationon 0 06-19-2023 PT Coag (Bld) [Time] 11.3 s 9.0 - 12.0 s [facility] No Panel Informationon 06-18 Interpretation and review of laboratory results Abnormal [facility] th Performed by: [facility], [address] [place] [address] CLIA ID: [id number] [facility] Interpretation and review of laboratory results Abnormal [facility] th Performed by: [facility], [address] [place] [address] CLIA ID: [id number] [facility] Interpretation and review of laboratory results Abnormal [facility] th Performed by: [facility], [address] [place] [address] CLIA ID: [id number] [facility] Interpretation and review of laboratory results Abnormal [facility] th Performed by: [facility], [address] [place] [address] CLIA ID: [id number] [facility] Radiology Study observation (narrative) [facility] Radiology Study observation (narrative) [facility] Radiology Study observation (narrative) [facility] Radiology Study observation (narrative) [facility] PROTHROMBIN TIMEon INR Coag (PPP) [Relative time] 1.1 {INR} Normal 0.9-1.1 [facility] Comment on above: Result Comment: [...] Myocardial Infarction Performed By: #### L [id number] ####Chemical Processor: ALEXANDRA BUSTAMANTE ([id number])[facility] [place] [address] PT Coag (PPP) [Time] 11.3 s Normal 9.0-12.0 [facility] Comment on above: Performed By: #### Akanksha [id number] ####Chemical Processor: ALEXANDRA BUSTAMANTE ([id number])[facility] ([facility])[address] [place] [address] PT Coag (Bld) [Time]on 06-18 INR Coag (PPP) [Relative time] 1.1 {INR} 0.9 - 1.1 [facility] Comment on above: Recommended Anticoag ulant Therapy: [...] Interpretation and review of laboratory results Normal [facility] Progress Noteon 06-19-2023 Progress Note [facility] Anticoagulatio n Management Service (RIA) Inpatient Warfarin Consult HPI: Ezra Gonzalez is a 87 y.o. female admitted on 06/16/2023 for Closed displaced fracture of medial condyle of right humerus, initial encounter [S46.825W] History reviewed. No pertinent past medical history. [...] patient can be classified as high risk ([id number] = 8). 2. Monitor for s/s of bleeding and drug interactions. Will adjust dose accordingly 3. RIA will manage while inpatient Dc Lombardi, PharmD Candidate Toshia Sanches, JpD, [facility] RIA is available daily [phone] via [employer]. If no response on [employer] Chat then please page [phone]. Normal [facility] BASIC METABOLIC PANELon 05-30 0-2023 Anion gap [Moles/Vol] 10 mmol/L Normal 3-13 [facility] Comment on above: Performed By: #### L [id number] ####Chemical Processor: ALEXANDRA BUSTAMANTE ([id number])[facility])[address] [place] [address] Calcium [Mass/Vol] 8.8 mg/dL Normal 8.4-10.4 [facility] Comment on above: Performed By: #### L AB15 ####Chemical Processor: ALEXANDRA BUSTAMANTE ([id number])[facility] ([facility])[address] [place] [address] [place] Chloride [Moles/Vol] 98 mmol/L Normal 98-107 [facility] Comment on above: Performed By: #### L AB15 ####Chemical Processor: ALEXANDRA BUSTAMANTE ([id number])[facility])[address] [place] [address] CO2 [Moles/Vol] 25 mmol/L Normal 22-30 [facility] Comment on above: Performed By: #### L AB15 ####Chemical Processor: ALEXANDRA BUSTAMANTE ([id number])[facility] ([facility])[address] [place] [address] Creatinine [Mass/Vol] 0.83 mg/dL Normal 0.52-1.04 [facility] Comment on above: Performed By: #### L AB15 ####Chemical Processor: ALEXANDRA BUSTAMANTE ([id number])[facility] ([facility])[address] [place] [address] GLOMERULAR FILTRATION RATE ML/MIN/1.73 SQ M.PREDICTED 68.3 mL/min/1.73m*2 Normal >60.0 [facility] Comment on above: Result Comment: Calc ulation based on the Chronic Kidney Disease Epidemiology Collaboration (CKD-EPI) equation refit without adjustment for race Performed By: #### L AB15 ####Chemical Processor: ALEXANDRA BUSTAMANTE ([id number])[facility])[address] [place] [address] Glucose [Mass/Vol] 163 mg/dL Normal [facility] Comment on above: Performed By: #### L AB15 ####Chemical Processor: ALEXANDRA BUSTAMANTE ([id number])[address] Order Comment: If no t done within the last 3 mos Performed By: #### L AB90 ####Chemical Processor: ALEXANDRA BUSTAMANTE ([id number])[facility])[address] [place] [address] Potassium [Moles/Vol] 4.6 mmol/L Normal 3.5-5.1 [facility] Comment on above: Performed By: #### L AB15 ####Chemical Processor: ALEXANDRA BUSTAMANTE ([id number])[facility])[address] [place] [address] Sodium [Moles/Vol] 133 mmol/L Low 135-145 [facility] Comment on above: Performed By: #### L AB15 ####Chemical Processor: ALEXANDRA [id number])[facility])[address] [place] [address] Urea nitrogen [Mass/Vol] 24 mg/dL High 7-17 [facility] Comment on above: Performed By: #### L AB15 ####Chemical Processor: ALEXANDRA BUSTAMANTE ([id number])[facility] ([facility])[address] [place] [address] Basic metabolic 1998 panelon 06-18-2023 Anion gap [Moles/Vol] 10 mmol/L 3 - 13 mmol/L [facility] Calcium [Mass/Vol] 8.8 mg/dL 8.4 - 10. 4 mg/dL [facility] Chloride [Moles/Vol] 98 mmol/L 98 - 10 7 mmol/L [facility] CO2 [Moles/Vol] 25 mmol/L 22 - 30 mmol/L [facility] Creatinine [Mass/Vol] 0.83 mg/dL 0.52 - 1.04 mg/dL [facility] GFR/1.73 sq M.predicted MDRD (S/P/Bld) [Vol rate/Area] 68.3 mL/min/{1.73_m2} - PINF [facility] Comment on above: Calculation based on the Chronic Kidney Disease Epidemiology Collaboration (CKD-EPI) equation refit without adjustment for race Glucose [Mass/Vol] 163 mg/dL High 70 - 100 mg/dL [facility] Interpretation and review of laboratory results Abnormal [facility] Potassium [Moles/Vol] 4.6 mmol/L 3.5 - 5.1 mmol/L [facility] Sodium [Moles/Vol] 133 mmol/L Low 135 - 145 mmol/L [facility] Urea nitrogen [Mass/Vol] 24 mg/dL High 7 - 17 mg/d L [facility] CARECOORDon 06-18-2023 [facility] Care Managment Initial Assessment Date: 06/18/2023 Patient Name: Ezra Gonzalez : 1935 Patient Information Source of Information: Patient Cognition/Language: WFL - Within Functional Limits Permission given to speak with patient medical center representative/caregi saira as indicated: No Confirmation of Payer with patient/family: Yes Payer Name: [facility] [place]: No Confirmation of Primary Care Physician: Confirmed [...] CONTINUE TO FOLLOW. Shikha Gray RN Normal [facility] CBC W Auto Differential pane l (Bld)Ordered By: Nir Meza on 06-18-2023 Basophils (Bld) [#/Vol] 0.1 10*3/uL 0.0 - 0.2 10*3/uL [facility] Basophils/100 WBC (Bld) 0.4 % 0.0 - 2.0 % [facility] Eosinophils (Bld) [#/Vol] 0.2 10*3/uL 0. 0 - 0.5 10*3/uL [facility] Eosinophils/100 WBC (Bld) 1.3 % 0.0 - 6.0 % [facility] Erythrocyte distribution width (RBC) [Ratio] 13.8 % 11.5 - 15.0 % [facility] Hematocrit (Bld) [Volume fraction] 44.1 % 35.0 - 47.0 % [facility] Hemoglobin (Bld) [Mass/Vol] 13.9 g/dL 11.7 - 16.0 g/dL [facility] Immature granulocytes (Bld) [#/Vol] 0.1 10*3/uL High NINF - 0.1 10*3/uL [facility] Immature granulocytes/100 WBC (Bld) 0.4 % 0.0 - 2.0 % [facility] Interpretation and review of laboratory results Abnormal [facility] th Lymphocytes (Bld) [#/Vol] 2.0 10*3/uL 1. 0 - 4.3 10*3/uL [facility] Lymphocytes/100 WBC (Bld) 13.1 % Low 15 .0 - 45.0 % [facility] MCH (RBC) [Entitic mass] 28.0 pg 26. 0 - 34.0 pg [facility] MCHC (RBC) [Mass/Vol] 31.5 % 30.5 - 36.0 % [facility] MCV (RBC) [Entitic vol] 88.9 fL 77.0 - 99.0 fL [facility] Monocytes (Bld) [#/Vol] 1.4 10*3/uL High 0.0 - 0.9 10*3/uL [facility] Monocytes/100 WBC (Bld) 9.0 % 5.0 - 13.0 % [facility] Neutrophils (Bld) [#/Vol] 11.8 10*3/uL High 1. 8 - 7.5 10*3/uL [facility] Neutrophils/100 WBC (Bld) 75.8 % 38 .0 - 82.0 % [facility] Nucleated RBC/100 WBC (Bld) [Ratio] 0.0 % [facility] Platelet mean volume (Bld) [Entitic vol] 10.1 fL 9.0 - 12.7 fL [facility] Platelets (Bld) [#/Vol] 375 10*3/uL 140 - 440 10*3/uL [facility] RBC (Bld) [#/Vol] 4.96 10*6/uL 3.80 - 5.2 0 10*6/uL [facility] WBC (Bld) [#/Vol] 15.5 10*3/uL High 3.6 - 10.7 10*3/uL [facility] CBC WITH AUTO DIFFERENTIALon 06-18-2023 Basophils (Bld) [#/Vol] 0.1 10*3/uL Normal 0.0-0.2 [facility] Comment on above: Performed By: #### L [id number] ####Chemical Processor: ALEXANDRA BUSTAMANTE ([id number])[facility] ([facility])[address] [place] [address] Basophils/100 WBC (Bld) 0.4 % Normal 0.0-2.0 S [facility] Comment on above: Performed By: #### L [id number] ####Chemical Processor: ALEXANDRA BUSTAMANTE ([id number])[facility] ([facility])[address] [place] [address] Eosinophils (Bld) [#/Vol] 0.2 10*3/uL Normal 0.0-0.5 [facility] Comment on above: Performed By: #### L [id number] ####Chemical Processor: ALEXANDRA BUSTAMANTE ([id number])[facility] ([facility])[address] [place] [address] Eosinophils/100 WBC (Bld) 1.3 % Normal 0.0-6.0 [facility] Comment on above: Performed By: #### L [id number] ####Chemical Processor: ALEXANDRA BUSTAMANTE ([id number])[facility])[address] [place] [address] Erythrocyte distribution width (RBC) [Ratio] 13.8 % Normal 11.5-15.0 [facility] Comment on above: Performed By: #### L [id number] ####Chemical Processor: ALEXANDRA BUSTAMANTE ([id number])[facility] ([facility])[address] [place] [address] Hematocrit (Bld) [Volume fraction] 44.1 % Normal 35.0-47.0 [facility] Comment on above: Performed By: #### L [id number] ####Chemical Processor: ALEXANDRA BUSTAMANTE ([id number])[facility])[address] [place] [address] Hemoglobin (Bld) [Mass/Vol] 13.9 g/dL Normal 11.7-16.0 [facility] Comment on above: Performed By: #### L [id number] ####Chemical Processor: ALEXANDRA BUSTAMANTE ([id number])[facility])[address] [place] [address] IMMATURE GRANS % 0.4 % Normal 0.0-2.0 [facility] Comment on above: Performed By: #### L [id number] ####Chemical Processor: ALEXANDRA BUSTAMANTE ([id number])[facility])[address] [place] [address] IMMATURE GRANS ABSOLUTE 0.1 10*3/uL High <0.1 [facility] Comment on above: Performed By: #### L [id number] ####Chemical Processor: ALEXANDRA BUSTAMANTE ([id number])[address] Lymphocytes (Bld) [#/Vol] 2.0 10*3/uL Normal 1.0-4.3 [facility] Comment on above: Performed By: #### L [id number] ####Chemical Processor: ALEXANDRA BUSTAMANTE ([id number])[address] Lymphocytes/100 WBC (Bld) 13.1 % Low 15.0-45.0 [facility] Comment on above: Performed By: #### L [id number] ####Chemical Processor: ALEXANDRA BUSTAMANTE ([id number])[facility])[address] [place] [address] MCH (RBC) [Entitic mass] 28.0 pg Normal 26.0-34.0 [facility] Comment on above: Performed By: #### L [id number] ####Chemical Processor: ALEXANDRA BUSTAMANTE ([id number])[address] MCHC 31.5 % Normal 30.5-36.0 [facility] Comment on above: Performed By: #### L [id number] ####Chemical Processor: ALEXANDRA BUSTAMANTE ([id number])[facility] ([facility])[address] [place] [address] MCV (RBC) [Entitic vol] 88.9 fL Normal 77.0-99.0 [facility] Comment on above: Performed By: #### L [id number] ####Chemical Processor: ALEXANDRA BUSTAMANTE ([id number])[facility] ([facility])[address] [place] [address] [place] Monocytes (Bld) [#/Vol] 1.4 10*3/uL High 0.0-0.9 [facility] Comment on above: Performed By: #### L [id number] ####Chemical Processor: ALEXANDRA BUSTAMANTE ([id number])[facility] ([facility])[address] [place] [address] Monocytes/100 WBC (Bld) 9.0 % Normal 5.0-13.0 [facility] Comment on above: Performed By: #### L [id number] ####Chemical Processor: ALEXANDRA BUSTAMANTE ([id number])[facility] ([facility])[address] [place] [address] NEUTROPHILS ABSOLUTE 11.8 10*3/uL High 1.8-7.5 [facility] Comment on above: Performed By: #### L [id number] ####Chemical Processor: ALEXANDRA BUSTAMANTE ([id number])[facility] ([facility])[address] [place] [address] Neutrophils/100 WBC (Bld) 75.8 % Normal 38.0-82.0 [facility] Comment on above: Performed By: #### L [id number] ####Chemical Processor: ALEXANDRA BUSTAMANTE ([id number])[facility] ([facility])[address] [place] [address] [place] NRBC 0.0 /100 WBCs Normal 0.0-2.0 [facility] Comment on above: Performed By: #### L [id number] ####Chemical Processor: ALEXANDRA BUSTAMANTE ([id number])[facility] ([facility])[address] [place] [address] Platelet mean volume (Bld) [Entitic vol] 10.1 fL Normal 9.0-12.7 [facility] Comment on above: Performed By: #### L [id number] ####Chemical Processor: ALEXANDRA BUSTAMANTE ([id number])[facility])[address] [place] [address] Platelets (Bld) [#/Vol] 375 10*3/uL Normal 140-440 [facility] Comment on above: Performed By: #### L [id number] ####Chemical Processor: ALEXANDRA BUSTAMANTE ([id number])[facility])[address] [place] [address] RBC (Bld) [#/Vol] 4.96 10*6/uL Normal 3.80-5.20 [facility] Comment on above: Performed By: #### L [id number] ####Chemical Processor: ALEXANDRA BUSTAMANTE ([id number])[facility] ([facility])[address] [place] [address] WBC (Bld) [#/Vol] 15.5 10*3/uL High 3.6-10.7 [facility] Comment on above: Performed By: #### L [id number] ####Chemical Processor: ALEXANDRA BUSTAMANTE ([id number])[facility] ([facility])[address] [place] [address] HEMOGLOBIN A1Con 06-18-2023 HbA1c (Bld) [Mass fraction] 7.3 % High <5.7 [facility] Comment on above: Order Comment: If no t done within the last 3 mos Result Comment: Norm al less than 5.7% Prediabetes 5.7% to 6.4% Diabetes 6.5% or higher --HgbA1C levels may not be accurate in patients who have renal disease, received recent blood transfusions, are anemic, or who have dyshemoglobinemia. Performed By: #### L AB90 ####Chemical Processor: ALEXANDRA BUSTAMANTE ([id number])[facility])[address] [place] [address] IDNon 06-18-2023 IDN The patient is Moderately Stable - Low risk of patient condition declining or worsening The patient's goals for the shift include rest and pain control The clinical goals for the shift include rest and pain control Normal [facility] Laboratory - Chemistry and C hemistry - challengeon 06-18-2023 Glucose [Mass/Vol] 189 mg/dL High 70 - 100 mg/dL [facility] Procalcitonin [Mass/Vol] 0.06 ng/mL 0.0 0 - 0.09 ng/mL [facility] Glucose [Mass/Vol] 121 mg/dL High 70 - 100 mg/dL [facility] Average glucose Estimated from glycated hemoglobin (Bld) [Mass/Vol] 163 mg/dL [facility] Laboratory - Hematology and Cell countson 06-18-2023 HbA1c (Bld) [Mass fraction] 7.3 % High NINF - 5.7 % [facility] Comment on above: Normal less than 5.7 % Prediabetes 5.7% to 6.4% Diabetes 6.5% or higher --HgbA1C levels may not be accurate in patients who have renal disease, received recent blood transfusions, are anemic, or who have dyshemoglobinemia. No Panel Informationon 06-17 Interpretation and review of laboratory results Abnormal [facility] Performed by: [facility], [address] [place] [address] CLIA ID: [id number] [facility] There is no interpretation needed for this exam. IMAGING Interpretation and review of laboratory results Abnormal [facility] Performed by: [facility], [address] [place] [address] CLIA ID: [id number] [facility] Interpretation and review of laboratory results Abnormal [facility] Radiology Study observation (narrative) Trina isabel Radiology Study observation (narrative) [facility] Nursing Noteon 06-18-2023 Nursing Note Pt states no need to contact family. RN on floor states she will call pt's son,. Normal [facility] Nursing Note Patients wallet and watch locked up with security. OR notified patient states she has latex allergy Patients purse and glasses taken to pacu Normal [facility] Op Noteon 06-18-2023 Op Note [facility] OR [address] [place] [address] Dept: [phone] Loc: [phone] Operative Report Patient Name: Ezra Gonzalez Date of : 1935 Date of Surgery: 06/18/23 Pre-operative diagnosis: Right intra-articular distal humerus fracture Post-operative diagnosis: Same Procedure(s): Open reduction internal fixation of right intra-articular distal humerus fracture Surgeon: Benitez Givens M.D. Dispatcher Chief Oil(s): Lexa Aparicio M.D. Anesthesia: General and Regional [...] Lexa Aparicio MD at 06/18/23, 7:20 PM [facility] Op Note Date: 06/16/2023 - 06/18/2023 Location: [facility] OR Name: Ezra Gonzalez, : 1935, Diagnosis Pre-op Diagnosis * Closed displaced fracture of medial condyle of right humerus, initial encounter [S42.377U] Post-op Diagnosis * Closed displaced fracture of medial condyle of right humerus, initial encounter [K99.215Y] Procedures OPEN REDUCTION INTERNAL FIXATION RIGHT DISTAL HUMERUS 79230 - MD [employer] HUMERAL SHFT FX W/PLATE/SCREWS W/WOCERCLAGE Surgeons * Benitez Givens - Primary Procedure Summary Anesthesia: * No anesthesia type entered * ASA: III Estimated Blood Loss: Minimal Drains: * None in log * Staff: Blind Eyeletter: Vivian Herrera RN Scrub Person: Linda Alvarez [...] in 2 weeks -Ortho to follow. Normal [facility] PROCALCITONIN TESTon 06-17- 024 PROCALCITONIN 0.06 ng/mL Normal 0.00-0.[address] [employer] [facility] Comment on above: Result Comment: ORDE R COMMENTS: PCT <0.50 = Low risk of severe sepsis and/or septic shock. PCT >2.00 = High risk of severe sepsis and/or septic shock. Performed By: #### L [id number] ####Chemical Processor: ALEXANDRA BUSTAMANTE ([id number])[facility] ([facility])[address] [place] [address] Procalcitonin [Mass/Vol]on 0 06-18-2023 Interpretation and review of laboratory results Normal [facility] PCT <0.50 = Low risk of severe sepsis and/or septic shock. PCT >2.00 = High risk of severe sepsis and/or septic shock. [facility] Progress Noteon 06-18-2023 Progress Note Nutrition rescreen completed. Chart reviewed. Patient to be monitored and followed by the diet transportation engineering technician. Ele Butcher, DT Normal [facility] [facility] Progress Note OCCUPATIONAL THERAPY [facility] Name/MRN: Ezra Gonzalez ([id number]) Date: 06/18/2023 OT eval and treat order received. Patient chart reviewed. Per Ortho note, "Plan for ORIF od R distal humerus." Will hold evaluation till after surgery. Louisa Cespedes, OT Normal [facility] Progress Note PHYSICAL THERAPY [facility] Name/MRN: Ezra Gonzalez ([id number]) Date: 06/18/2023 PT orders received and chart reviewed. Per ortho note, "Plan for ORIF R distal humerus". Will hold and attempt following surgery. Maryanne Neumann, PT Normal [facility] ECG 12-LEADon 06-17-2023 ECG 12-LEAD IMPRESSION: Atrial fibrillation Probable left ventricular hypertrophy No previous ECG for comparison Electronically Signed On 06-17-2023 06:39:12 EDT by Thong Francois [facility] ED Nursing Noteon 06-17-2023 ED Nursing Note Patient resting in bed at this time, equal unlabored respirations noted and no acute distress, call león within reach Di Reyna RN 06/17/23 1153 [facility] ED Nursing Note Pt O2 desaturating t o mid 80s after receiving dilaudid IV. Pt placed on 2L NC and immediately back up to 95%. notified Alia Foster RN 06/17/23 1031 [facility] ED Nursing Note Pt upset [...] request US IV line. Juanjo Pringle, JAYME 06/16/232 Normal [facility] Laboratory - Chemistry and C hemistry - challengeon 06-17-2023 Glucose [Mass/Vol] 137 mg/dL High 70 - 100 mg/dL [facility] Laboratory - Coagulationon 0 06-17-2023 PT Coag (Bld) [Time] 14.5 s High 9.0 - 12.0 s [facility] No Panel Informationon 06-16 Interpretation and review of laboratory results Abnormal [facility] th Performed by: [facility], [address] [place] [address] CLIA ID: [id number] [facility] Atrial fibrillation Probable left ventricular hypertrophy No previous ECG for comparison Electronically Signed On 06-17-2023 06:39:12 EDT by Thong Arvizu D O - 06/17/2023 IMPRESSION: Atrial fibrillation Probable left ventricular hypertrophy No previous ECG for comparison Electronically Signed On 06-17-2023 06:39:12 EDT by Thongtushar Francois [facility] Radiology Study observation (narrative) [facility] No Panel InformationOrdered By: Thong Francois on 06-17-2023 P [place] 0 degrees [facility] Work Phone: MD Interval 0 ms [facility] Work Phone: QRS [place] -24 degrees [facility] Work Phone: QRSD Interval 103 ms [facility] h Work Phone: QT Interval 382 ms [facility] Work Phone: QTC Interval 442 ms [facility] Work Phone: T Wave [place] 31 degrees [facility] Work Phone: [facility] Work Phone: Nursing Noteon 06-17-2023 Nursing Note Patient home medication list updated, provider made aware. Normal [facility] PROTHROMBIN TIMEon INR Coag (PPP) [Relative time] 1.4 {INR} High 0.9-1.1 [facility] Comment on above: Result Comment: [...] Infarction Performed By: #### L [id number] #### Chemical Processor: ALEXANDRA BUSTAMANTE ([id number]) [facility] ([facility]) [address] [place] [address] PT Coag (PPP) [Time] 14.5 s High 9.0-12.0 [facility] Comment on above: Performed By: #### L [id number] #### Chemical Processor: ALEXANDRA BUSTAMANTE ([id number]) [facility] ([employer]) [address] [place] [address] PT Coag (Bld) [Time]on 06-16 INR Coag (PPP) [Relative time] 1.4 {INR} High 0.9 - 1.1 [facility] Comment on above: Recommended Anticoag ulant Therapy: [...] Interpretation and review of laboratory results Abnormal [facility] Progress Noteon 06-17-2023 Progress Note Due to OR availability, case cancelled for today. Moved to tomorrow, 06/17. Ok for diet today. NPO @[place]. Keep splint C/D/I. Evette Viera MD Orthopaedic Surgery, PGY-5 [phone] Normal [facility] Vital signsOrdered By: Neeta Marlowzane on 06-17-2023 Heart rate 80 /min bpm [employer] Work Phone: XR Chest Single viewon 06-16 No acute cardiopulmonary process identified. Other chronic findings as discussed. 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 [facility] Houston Chau MD - 06/17/2023 Patient [...] Electronically Signed Date/Time: 06/17/2023 12:44 AM EDT [facility] Radiology Study observation (narrative) [facility] XR Chest Single viewOrdered By: Huoston Chau on 06-17-2023 [facility] Work Phone: Absolute lymphocyte countOrd ered By: Lali Pimentel on 06-16-2023 Lymphocytes Auto (Unsp spec) [#/Vol] 3.86 10*3/uL 0.83-4.51 [facility] Automated lymphocyte count a s percentage of total leukocytesOrdered By: Lali Pimentel on 06-16-2023 Lymphocytes/100 WBC Auto (Unsp spec) 23.0 % 19-41 [facility] BASIC METABOLIC PANELon 05-29 Anion gap [Moles/Vol] 7 mmol/L Normal 3-13 [facility] Comment on above: Performed By: #### L [id number] ####Chemical Processor: ALEXANDRA BUSTAMANTE ([id number])[facility])[address] [place] [address] Calcium [Mass/Vol] 8.6 mg/dL Normal 8.4-10.4 [facility] Comment on above: Performed By: #### L AB15 ####Chemical Processor: ALEXANDRA BUSTAMANTE ([id number])[facility] ([facility])[address] [place] [address] [place] Chloride [Moles/Vol] 99 mmol/L Normal 98-107 [facility] Comment on above: Performed By: #### L AB15 ####Chemical Processor: ALEXANDRA BUSTAMANTE ([id number])[facility])[address] [place] [address] [place] CO2 [Moles/Vol] 29 mmol/L Normal 22-30 [facility] Comment on above: Performed By: #### L AB15 ####Chemical Processor: ALEXANDRA BUSTAMANTE ([id number])[facility])[address] [place] [address] Creatinine [Mass/Vol] 0.79 mg/dL Normal 0.52-1.04 [facility] Comment on above: Performed By: #### L AB15 ####Chemical Processor: ALEXANDRA BUSTAMANTE ([id number])[facility])[address] [place] [address] [place] GLOMERULAR FILTRATION RATE ML/MIN/1.73 SQ M.PREDICTED 72.5 mL/min/1.73m*2 Normal >60.0 [facility] Comment on above: Result Comment: Calc ulation based on the Chronic Kidney Disease Epidemiology Collaboration (CKD-EPI) equation refit without adjustment for race Performed By: #### L AB15 ####Chemical Processor: ALEXANDRA BUSTAMANTE ([id number])[facility])[address] [place] [address] Glucose [Mass/Vol] 186 mg/dL High 70-100 [facility] Comment on above: Performed By: #### L AB15 ####Chemical Processor: ALEXANDRA BUSTAMANTE ([id number])[facility])[address] [place] [address] Potassium [Moles/Vol] 4.5 mmol/L Normal 3.5-5.1 [facility] Comment on above: Performed By: #### L AB15 ####Chemical Processor: ALEXANDRA BUSTAMANTE ([id number])[facility])[address] [place] [address] Sodium [Moles/Vol] 136 mmol/L Normal 135-145 [facility] Comment on above: Performed By: #### L AB15 ####Chemical Processor: ALEXANDRA BUSTAMANTE ([id number])[facility])[address] [place] [address] Urea nitrogen [Mass/Vol] 26 mg/dL High 7-17 [facility] Comment on above: Performed By: #### L AB15 ####Chemical Processor: ALEXANDRA BUSTAMANTE ([id number])[facility] ([employer])[address] [place] [address] BLOOD TYPE AND SCREEN GELon 06-16-2023 ABO GROUPING A Normal [facility] Comment on above: Performed By: #### L [id number] ####Chemical Processor: ALEXANDRA BUSTAMANTE ([id number])[facility] ([facility])[address] [place] [address] RH TYPE IN BLOOD Positive Normal [facility] Comment on above: Performed By: #### L [id number] ####Chemical Processor: ALEXANDRA BUSTAMANTE ([id number])[facility] ([facility])[address] [place] [address] Basic metabolic 1998 panelon 06-16-2023 Anion gap [Moles/Vol] 7 mmol/L 3 - 13 mmol/L [facility] Calcium [Mass/Vol] 8.6 mg/dL 8.4 - 10. 4 mg/dL [facility] Chloride [Moles/Vol] 99 mmol/L 98 - 10 7 mmol/L [facility] CO2 [Moles/Vol] 29 mmol/L 22 - 30 mmol/L [facility] Creatinine [Mass/Vol] 0.79 mg/dL 0.52 - 1.04 mg/dL [facility] GFR/1.73 sq M.predicted MDRD (S/P/Bld) [Vol rate/Area] 72.5 mL/min/{1.73_m2} - PINF [facility] Comment on above: Calculation based on the Chronic Kidney Disease Epidemiology Collaboration (CKD-EPI) equation refit without adjustment for race Glucose [Mass/Vol] 186 mg/dL High 70 - 100 mg/dL [facility] Interpretation and review of laboratory results Abnormal [facility] Potassium [Moles/Vol] 4.5 mmol/L 3.5 - 5.1 mmol/L [facility] Sodium [Moles/Vol] 136 mmol/L 135 - 145 mmol/L [facility] Urea nitrogen [Mass/Vol] 26 mg/dL High 7 - 17 mg/d L [facility] Basophil percentageOrdered B y: Lali Pimentel on 06-16-2023 Basophils/100 WBC (Bld) 0.4 % 0-1 [facility] Chloride [Moles/Vol] 104 mmol/L 98-107 [facility] Eosinophils/100 WBC (Bld) 1.3 % 0-5 [facility] Glucose [Mass/Vol] 191 mg/dL 74-106 [facility] Comment on above: Fasting Glucose resu lt greater than or equal to 126 mg/dL suggests DIABETES MELLITUS per A.D.A. criteria. Hemoglobin (Bld) [Mass/Vol] 13.6 g/dL 12.0-15.0 [facility] Monocytes/100 WBC (Bld) 7.0 % 0-10 [facility] Neutrophils (Bld) [#/Vol] 11.4 10*3/uL 2.0-7.7 [facility] Neutrophils/100 WBC (Bld) 67.8 % 47-70 [facility] Potassium [Moles/Vol] 3.4 mmol/L 3.5-5.1 [facility] Sodium [Moles/Vol] 140 mmol/L 136-145 [facility] WBC (Bld) [#/Vol] 16.8 10*3/uL 4.4-11.0 [facility] Blood type and Crossmatch pa ro (Bld)on 06-16-2023 Blood group antibody screen GEL Ql Negative [facility] CBC W Auto Differential pane l (Bld)on 06-16-2023 Basophils (Bld) [#/Vol] 0.0 10*3/uL 0.0 - 0.2 10*3/uL [facility] Basophils/100 WBC (Bld) 0.2 % 0.0 - 2.0 % [facility] Eosinophils (Bld) [#/Vol] 0.0 10*3/uL 0. 0 - 0.5 10*3/uL [facility] Eosinophils/100 WBC (Bld) 0.0 % 0.0 - 6.0 % [facility] Erythrocyte distribution width (RBC) [Ratio] 13.6 % 11.5 - 15.0 % [facility] Hematocrit (Bld) [Volume fraction] 38.9 % 35.0 - 47.0 % [facility] Hemoglobin (Bld) [Mass/Vol] 12.8 g/dL 11.7 - 16.0 g/dL [facility] Immature granulocytes (Bld) [#/Vol] 0.1 10*3/uL High NINF - 0.1 10*3/uL [facility] Immature granulocytes/100 WBC (Bld) 0.6 % 0.0 - 2.0 % [facility] Interpretation and review of laboratory results Abnormal [facility] th Lymphocytes (Bld) [#/Vol] 1.1 10*3/uL 1. 0 - 4.3 10*3/uL [facility] Lymphocytes/100 WBC (Bld) 6.5 % Low 15 .0 - 45.0 % [facility] MCH (RBC) [Entitic mass] 29.1 pg 26. 0 - 34.0 pg [facility] MCHC (RBC) [Mass/Vol] 32.9 % 30.5 - 36.0 % [facility] MCV (RBC) [Entitic vol] 88.4 fL 77.0 - 99.0 fL [facility] Monocytes (Bld) [#/Vol] 0.7 10*3/uL 0.0 - 0.9 10*3/uL [facility] Monocytes/100 WBC (Bld) 4.4 % Low 5.0 - 13.0 % [facility] Neutrophils (Bld) [#/Vol] 14.3 10*3/uL High 1. 8 - 7.5 10*3/uL [facility] Neutrophils/100 WBC (Bld) 88.3 % High 38 .0 - 82.0 % [facility] Nucleated RBC/100 WBC (Bld) [Ratio] 0.0 % [facility] Platelet mean volume (Bld) [Entitic vol] 9.9 fL 9.0 - 12.7 fL [facility] Platelets (Bld) [#/Vol] 357 10*3/uL 140 - 440 10*3/uL [facility] RBC (Bld) [#/Vol] 4.40 10*6/uL 3.80 - 5.2 0 10*6/uL [facility] WBC (Bld) [#/Vol] 16.2 10*3/uL High 3.6 - 10.7 10*3/uL [facility] CBC WITH AUTO DIFFERENTIALon 06-16-2023 Basophils (Bld) [#/Vol] 0.0 10*3/uL Normal 0.0-0.2 [facility] Comment on above: Performed By: #### L [id number] ####Chemical Processor: ALEXANDRA BUSTAMANTE ([id number])[facility] ([facility])[address] [place] [address] Basophils/100 WBC (Bld) 0.2 % Normal 0.0-2.0 [facility] Comment on above: Performed By: #### L [id number] ####Chemical Processor: ALEXANDRA BUSTAMANTE ([id number])[facility])[address] [place] [address] Eosinophils (Bld) [#/Vol] 0.0 10*3/uL Normal 0.0-0.5 [facility] Comment on above: Performed By: #### L [id number] ####Chemical Processor: ALEXANDRA BUSTAMANTE ([id number])[facility])[address] [place] [address] Eosinophils/100 WBC (Bld) 0.0 % Normal 0.0-6.0 [facility] Comment on above: Performed By: #### L [id number] ####Chemical Processor: ALEXANDRA BUSTAMANTE ([id number])[facility] ([facility])[address] [place] [address] Erythrocyte distribution width (RBC) [Ratio] 13.6 % Normal 11.5-15.0 [facility] Comment on above: Performed By: #### L [id number] ####Chemical Processor: ALEXANDRA BUSTAMANTE ([id number])[facility])[address] [place] [address] Hematocrit (Bld) [Volume fraction] 38.9 % Normal 35.0-47.0 [facility] Comment on above: Performed By: #### L [id number] ####Chemical Processor: ALEXANDRA BUSTAMANTE ([id number])[facility])[address] [place] [address] Hemoglobin (Bld) [Mass/Vol] 12.8 g/dL Normal 11.7-16.0 [facility] Comment on above: Performed By: #### L [id number] ####Chemical Processor: ALEXANDRA BUSTAMANTE ([id number])[facility] [place] [address] IMMATURE GRANS % 0.6 % Normal 0.0-2.0 [facility] Comment on above: Performed By: #### L [id number] ####Chemical Processor: ALEXANDRA BUSTAMANTE ([id number])[facility])[address] [place] [address] IMMATURE GRANS ABSOLUTE 0.1 10*3/uL High <0.1 [facility] Comment on above: Performed By: #### L [id number] ####Chemical Processor: ALEXANDRA BUSTAMANTE ([id number])[facility])[address] [place] [address] Lymphocytes (Bld) [#/Vol] 1.1 10*3/uL Normal 1.0-4.3 [facility] Comment on above: Performed By: #### L [id number] ####Chemical Processor: ALEXANDRA BUSTAMANTE ([id number])[facility])[address] [place] [address] Lymphocytes/100 WBC (Bld) 6.5 % Low 15.0-45.0 [facility] Comment on above: Performed By: #### L [id number] ####Chemical Processor: ALEXANDRA BUSTAMANTE ([id number])[facility])[address] [place] [address] MCH (RBC) [Entitic mass] 29.1 pg Normal 26.0-34.0 [facility] Comment on above: Performed By: #### L [id number] ####Chemical Processor: ALEXANDRA BUSTAMANTE ([id number])[facility])[address] [place] [address] MCHC 32.9 % Normal 30.5-36.0 [facility] Comment on above: Performed By: #### L [id number] ####Chemical Processor: ALEXANDRA BUSTAMANTE ([id number])[facility])[address] [place] [address] MCV (RBC) [Entitic vol] 88.4 fL Normal 77.0-99.0 [facility] Comment on above: Performed By: #### L [id number] ####Chemical Processor: ALEXANDRA BUSTAMANTE ([id number])[facility])[address] [place] [address] Monocytes (Bld) [#/Vol] 0.7 10*3/uL Normal 0.0-0.9 [facility] Comment on above: Performed By: #### L [id number] ####Chemical Processor: ALEXANDRA BUSTAMANTE ([id number])[facility] ([facility])[address] [place] [address] Monocytes/100 WBC (Bld) 4.4 % Low 5.0-13.0 [facility] Comment on above: Performed By: #### L [id number] ####Chemical Processor: ALEXANDRA BUSTAMANTE ([id number])[facility])[address] [place] [address] NEUTROPHILS ABSOLUTE 14.3 10*3/uL High 1.8-7.5 [facility] Comment on above: Performed By: #### L [id number] ####Chemical Processor: ALEXANDRA BUSTAMANTE ([id number])[facility] ([facility])[address] [place] [address] Neutrophils/100 WBC (Bld) 88.3 % High 38.0-82.0 [facility] Comment on above: Performed By: #### L [id number] ####Chemical Processor: ALEXANDRA BUSTAMANTE ([id number])[facility])[address] [place] [address] NRBC 0.0 /100 WBCs Normal 0.0-2.0 [facility] Comment on above: Performed By: #### L [id number] ####Chemical Processor: ALEXANDRA BUSTAMANTE ([id number])[facility])[address] [place] [address] Platelet mean volume (Bld) [Entitic vol] 9.9 fL Normal 9.0-12.7 [facility] Comment on above: Performed By: #### L [id number] ####Chemical Processor: ALEXANDRA BUSTAMANTE ([id number])[facility] ([facility])[address] [place] [address] Platelets (Bld) [#/Vol] 357 10*3/uL Normal 140-440 [facility] Comment on above: Performed By: #### L [id number] ####Chemical Processor: ALEXANDRA BUSTAMANTE ([id number])[facility] ([facility])[address] [place] [address] RBC (Bld) [#/Vol] 4.40 10*6/uL Normal 3.80-5.20 [facility] Comment on above: Performed By: #### L [id number] ####Chemical Processor: ALEXANDRA BUSTAMANTE ([id number])[facility] ([facility])[address] [place] [address] WBC (Bld) [#/Vol] 16.2 10*3/uL High 3.6-10.7 [facility] Comment on above: Performed By: #### L [id number] ####Chemical Processor: ALEXANDRA BUSTAMANTE ([id number])[facility])[address] [place] [address] CT ELBOW RIGHT WO IV CONTRAS Ton 06-16-2023 CT ELBOW RIGHT WO IV CONTRAST Patient Name: EZRA GONZALEZ : 1935 [facility]#: [id number] Exam Date/Time: 06/16/2023 18:01 Procedure: CT ELBOW [...] Injury (Pt arrives [facility] with complaints of right elbow fracture. Patient was sent here for ortho consult. No pain on arrival. Arrives with right arm splinted.)Closed displaced fracture of medial condyle of right humerus, initial encounter Normal [facility] CT Elbow - right WO contrast on 06-16-2023 Impression: Extensively comminuted supracondylar humerus fracture. The fracture has multiple foci of articular extension to the lateral and central aspect of the condyle. Report Dictated on Electronically Signed By: Pastor Francisco MD Electronically Signed Date/Time: 06/16/2023 6:13 PM EDT [facility] Patient Name: EZRA GONZALEZ : 1935 [facility]#: [id number] Exam Date/Time: 06/16/2023 18:01 Procedure: CT ELBOW [...] process fracture. Joint effusion. Decreased osseous mineralization. [facility] Pastor Francisco MD - 06/16/2023 [...] Electronically Signed Date/Time: 06/16/2023 6:13 PM EDT [facility] Radiology Study observation (narrative) [facility] chalo Consulton 06-16-2023 Consult Ortho Consult Patient: Ezra Gonzalez Date of : 1935 Acct: [id number] PCP: No primary care provider on file. Date of Admission: 06/16/2023 Date of Service: Pt seen/examined on 06/16/2023 Chief Complaint: right distal humerus fracture History Of Present Illness: This is a 87 y.o. right hand dominant female who presents with a right distal humerus fracture after a fall at home. Patient originally presented to [facility] where she was splinted and transferred to [facility] ED for ortho eval. Patient denies numbness, tingling, or weakness. Denies pain elsewhere and denies head trauma or LOC. 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 Patient has prior ortho surgery history of bilateral TKAs and right shoulder surgery, left carpal tunnel release, all at [facility]. Denies alcohol, tobacco, drug use. Patient ambulation [...] "RH", "LAB (more content not included)... Normal [facility] Determination of erythrocyte mean corpuscular volume (MCV)Ordered By: Lali Pimentel on 06-16-2023 MCV (RBC) [Entitic vol] 90.3 fL 81-99 [facility] ED Provider Noteon 4 ED Provider Note Emergency Department Encounter [facility] EMERGENCY DEPT Patient: Ezra Gonzalez [...] contact the dictating provider for clarification.) Sae Cnode MD Acute Care [facility] Sae Conde MD 06/16/23 1626 [facility] ED Provider Note EMERGENCY DEPARTMENT ENCOUNTER Pt Name: Ezra Gonzalez Birthdate 1935 Date of evaluation: 06/16/2023 ED Provider: NADIA Ruiz CHIEF COMPLAINT Chief Complaint Patient presents with Arm Injury Pt [facility] from [facility] with complaints of right elbow fracture. [...] distal humerus fracture. Patient was transferred to [facility] ED for orthopedic consultation. Patient [...] 4.4 (*) (more content not included)... Normal [facility] Erythrocyte distribution wid th ratioOrdered By: Lali Pimentel on 06-16-2023 Erythrocyte distribution width (RBC) [Ratio] 13.3 % 11.6-14.6 [facility] Erythrocyte distribution wid th standard deviationOrdered By: Lali Pimentel on 06-16-2023 Erythrocyte distribution width (RBC) [Entitic vol] 43.9 fL 35.1-43.9 [facility] Hematocrit Auto (Bld) [Volum e fraction]Ordered By: Lali Pimentel on 06-16-2023 Hematocrit (Bld) [Volume fraction] 42.6 % 37-47 [facility] Immature granulocytes/100 WB C Auto (Bld)Ordered By: Lali Pimentel on 06-16-2023 Immature granulocytes/100 WBC (Bld) 0.500 % 0.0-0.9 [facility] Comment on above: IG% - Immature Granu locytes (promyelocytes, myelocytes and metamyelocytes) > 1% indicates that a LEFT SHIFT is Present. Laboratory - Blood bankon ABO group Nom (Bld) A [facility] D Ag Ql (RBC) Positive [facility] Laboratory - Chemistry and C hemistry - challengeOrdered By: Lali Pimentel on 06-16-2023 CO2 [Moles/Vol] 31.0 mmol/L 21.0-32.0 [facility] Urea nitrogen/Creatinine [Mass ratio] 20.9 mg/mg 10-20 [facility] Laboratory - Coagulationon 0 06-16-2023 PT Coag (Bld) [Time] 22.3 s High 9.0 - 12.0 s [facility] Laboratory - CoagulationOrde red By: Lali Pimentel on 06-16-2023 INR Coag (Bld) [Relative time] 2.2 {INR} [facility] PT Coag (PPP) [Time] 24.3 s 11.7-14.9 [facility] Laboratory - Hematology and Cell countsOrdered By: Lali Pimentel on 06-16-2023 MCH (RBC) [Entitic mass] 28.8 pg 27.0-32.0 [facility] MCHC (RBC) [Mass/Vol] 31.9 g/dL 32-36 [facility] Nucleated RBC/100 WBC (Bld) [Ratio] 0 % 0-5 [facility] Platelet mean volume (Bld) [Entitic vol] 9.9 fL 6.2-12.0 [facility] Platelets (Bld) [#/Vol] 414 10*3/uL 150-450 [facility] No Panel Informationon 06-15 [facility] No Panel InformationOrdered By: Lali Pimentel on 06-16-2023 Estimated Creatinine Clearance Calc 35.56 ml/min [facility] Estimated GFR (MDRD) Amer 57 mL/min >60 [facility] Comment on above: GFR Calc Estimated GFR (MDRD) Non-Af Amer 47 mL/min >60 [facility] Comment on above: Non- GFR Calc PROTHROMBIN TIMEon INR Coag (PPP) [Relative time] 2.2 {INR} High 0.9-1.1 [facility] Comment on above: Result Comment: [...] Myocardial Infarction Performed By: #### Akanksha [id number] ####Chemical Processor: ALEXANDRA BUSTAMANTE ([id number])[address] PT Coag (PPP) [Time] 22.3 s High 9.0-12.0 [facility] Comment on above: Performed By: #### Akanksha [id number] ####Chemical Processor: ALEXANDRA BUSTAMANTE ([id number])[address] PT Coag (Bld) [Time]on 06-15 INR Coag (PPP) [Relative time] 2.2 {INR} High 0.9 - 1.1 [facility] Comment on above: Recommended Anticoag ulant Therapy: [...] Interpretation and review of laboratory results Abnormal [facility] Auto (Bld) [#/Vol]Ordere d By: Lali Pimentel on 06-16-2023 RBC (Bld) [#/Vol] 4.72 10*6/uL 4.2-5.4 [facility] Serum or plasma calcium viktoria urement (mass/volume)Ordered By: Lali Pimentel on 06-16-2023 Calcium [Mass/Vol] 8.8 mg/dL 8.5-10.1 [facility] Serum or plasma creatinine m easurement (mass/volume)Ordered By: Lali Pimentel on 06-16-2023 Creatinine [Mass/Vol] 1.15 mg/dL 0.55-1.02 [facility] Comment on above: The validity of the calculated GFR & GFRAA in patients over 70 years has not been determined. Clinical correlation is essential. Serum or plasma urea nitroge n measurement (mass/volume)Ordered By: Lali Pimentel on 06-16-2023 Urea nitrogen [Mass/Vol] 24 mg/dL 10-15 [facility] Thin prep Papanicolaou smear with manual screeningOrdered By: Lali Pimentel on 06-16-2023 Thin prep Papanicolaou smear with manual screening 5 5-15 [facility] XR Elbow - right 2 Viewson 0 06-16-2023 Patient Name: [facility]ZRA [facility]ZALEZ : 1935 [id number] Exam Date/Time: 06/16/2023 15:20 Procedure: XR ELBOW [...] Electronically Signed Date/Time: 06/16/2023 3:38 PM T [facility] Sae Dudley MD - 06/16/2023 [...] Electronically Signed Date/Time: 06/16/2023 3:38 PM EDT [facility] Radiology Study observation (narrative) [facility] alth XR Elbow - right 2 ViewsOrde red By: Sae Dudley on 06-16-2023 [employer] Work Phone: XR Elbow - right 3 [...] Electronically Signed Date/Time: 06/16/2023 3:24 PM EDT [facility] [employer] Patient Name: EZRA GONZALEZ : 1935 Exam Date/Time: 06/16/2023 14:30 Procedure: XR ELBOW 3+ VIEWS RIGHT Ordering Provider: TENORIO KASSIDY Reason For Exam: comminuted slightly displaced supracondylar fx of distal humerus with extension to the medial epicondyle - seen at [place] cannot see imaging Examination: Right elbow Clinical Indication: Pain Comparison: None [facility] Pastor Francisco MD - 06/16/2023 Patient Name: EZRA GONZALEZ : 1935 Exam Date/Time: 06/16/2023 14:30 Procedure: XR ELBOW 3+ VIEWS RIGHT Ordering Provider: TENORIO KASSIDY Reason For Exam: comminuted slightly displaced supracondylar fx of distal humerus with extension to the medial epicondyle - seen at [place] cannot see imaging Examination: Right elbow Clinical [...] Electronically Signed Date/Time: 06/16/2023 3:24 PM EDT [facility] Radiology Study observation (narrative) [facility] Anish alth XR Elbow - right 3 ViewsOrde red By: Pastor Francisco on 06-16-2023 [facility] [employer] Work Phone: XR Shoulder - right 2 [...] Electronically Signed Date/Time: 06/16/2023 3:30 PM EDT [facility] Patient Name: EZRA GONZALEZ : 1935 [...] glenohumeral joint. Acromioclavicular joint appears grossly intact. [facility] Reji Lemus MD - 06/16/2023 [...] Electronically Signed Date/Time: 06/16/2023 3:30 PM EDT [facility] Radiology Study observation (narrative) [facility] XR Shoulder - right 2 ViewsO rdered By: Reji Lemus on 06-16-2023 [facility] [employer] Work Phone: Capillary blood internationa l normalized ratio (INR)Ordered By: Alexandra Hagen on 05-30-2023 INR Coag ([facility]) [Relative time] 1.7 [facility] Comment on above: Critical Value > 4.0 Whole blood prothrombin time Ordered By: Alexandra Hagen on 05-30-2023 PT Coag (Bld) [Time] 18.0 s 11.7-14.9 [facility] Absolute lymphocyte countOrd ered By: Alexandra Hagen on 05-12-2023 Lymphocytes Auto (Unsp spec) [#/Vol] 1.60 10*3/uL 0.83-4.51 [facility] Automated lymphocyte count a s percentage of total leukocytesOrdered By: Alexandra Hagen on 05-12-2023 Lymphocytes/100 WBC Auto (Unsp spec) 20.2 % 19-41 [facility] Basophil percentageOrdered B y: Alexandra Hagen on 05-12-2023 Basophils/100 WBC (Bld) 0.5 % 0-1 [facility] Chloride [Moles/Vol] 109 mmol/L 98-107 [facility] Eosinophils/100 WBC (Bld) 3.7 % 0-5 [facility] Glucose [Mass/Vol] 206 mg/dL 74-106 [facility] Comment on above: Glucose result great er than or equal to 200 mg/dLsuggests DIABETES MELLITUS per A.D.A. criteria. Hemoglobin (Bld) [Mass/Vol] 13.1 g/dL 12.0-15.0 [facility] Monocytes/100 WBC (Bld) 7.8 % 0-10 [facility] Neutrophils (Bld) [#/Vol] 5.3 10*3/uL 2.0-7.7 [facility] Neutrophils/100 WBC (Bld) 67.5 % 47-70 [facility] Potassium [Moles/Vol] 4.6 mmol/L 3.5-5.1 [facility] Comment on above: Moderate Hemolysis, Result may be falsely increased. Sodium [Moles/Vol] 140 mmol/L 136-145 [facility] WBC (Bld) [#/Vol] 7.9 10*3/uL 4.4-11.0 [facility] Determination of erythrocyte mean corpuscular volume (MCV)Ordered By: Alexandra Hagen on 05-12-2023 MCV (RBC) [Entitic vol] 93.1 fL 81-99 [facility] Erythrocyte distribution wid th ratioOrdered By: Alexandra Hagen on 05-12-2023 Erythrocyte distribution width (RBC) [Ratio] 13.5 % 11.6-14.6 [facility] Erythrocyte distribution wid th standard deviationOrdered By: Alexandra Haegn on 05-12-2023 Erythrocyte distribution width (RBC) [Entitic vol] 46.0 fL 35.1-43.9 [facility] Hematocrit Auto (Bld) [Volum e fraction]Ordered By: Alexandra Hagen on 05-12-2023 Hematocrit (Bld) [Volume fraction] 41.8 % 37-47 [facility] Immature granulocytes/100 WB C Auto (Bld)Ordered By: Alexandra Hagen on 05-12-2023 Immature granulocytes/100 WBC (Bld) 0.300 % 0.0-0.9 [facility] Comment on above: IG% - Immature Granu locytes (promyelocytes, myelocytes and metamyelocytes) > 1% indicates that a LEFT SHIFT is Present. Laboratory - Chemistry and C hemistry - challengeOrdered By: Alexandra Hagen on 05-12-2023 CO2 [Moles/Vol] 25.0 mmol/L 21.0-32.0 [facility] Urea nitrogen/Creatinine [Mass ratio] 13.7 mg/mg 10-20 [facility] Laboratory - Hematology and Cell countsOrdered By: Alexandra Hagen on 05-12-2023 MCH (RBC) [Entitic mass] 29.2 pg 27.0-32.0 [facility] MCHC (RBC) [Mass/Vol] 31.3 g/dL 32-36 [facility] Nucleated RBC/100 WBC (Bld) [Ratio] 0 % 0-5 [facility] Platelet mean volume (Bld) [Entitic vol] 10.6 fL 6.2-12.0 [facility] Platelets (Bld) [#/Vol] 272 10*3/uL 150-450 [facility] No Panel InformationOrdered By: Alexandra Hagen on 05-12-2023 Estimated GFR (MDRD) Amer 53 mL/min >60 [facility] Comment on above: GFR Calc Estimated GFR (MDRD) Non-Af Amer 43 mL/min >60 [facility] Comment on above: Non- GFR Calc RBC Auto (Bld) [#/Vol]Ordere d By: Alexandra Hagen on 05-12-2023 RBC (Bld) [#/Vol] 4.49 10*6/uL 4.2-5.4 [facility] Serum or plasma calcium viktoria urement (mass/volume)Ordered By: Alexandra Hagen on 05-12-2023 Calcium [Mass/Vol] 8.5 mg/dL 8.5-10.1 [facility] Serum or plasma creatinine m easurement (mass/volume)Ordered By: Alexandra Hagen on 05-12-2023 Creatinine [Mass/Vol] 1.24 mg/dL 0.55-1.02 [facility] Comment on above: The validity of the calculated GFR & GFRAA in patients over 70 years has not been determined. Clinical correlation is essential. Serum or plasma urea nitroge n measurement (mass/volume)Ordered By: Alexandra Hagen on 05-12-2023 Urea nitrogen [Mass/Vol] 17 mg/dL 7-18 [facility] Thin prep Papanicolaou smear with manual screeningOrdered By: Alexandra Hagen on 05-12-2023 Thin prep Papanicolaou smear with manual screening 6 5-15 [facility] Whole blood hemoglobin A1c/t otal hemoglobin ratio (mass fraction)Ordered By: Alexandra Hagen on 05-12-2023 HbA1c (Bld) [Mass fraction] 6.8 % 3.8-5.6 [facility] Comment on above: Normal < 5.7 % Predi abetic 5.7 - 6.4 % Diabetic >or= 6.5 % Please note range changes. Capillary blood internationa l normalized ratio (INR)Ordered By: Alexandra Hagen on 05-01-2023 INR Coag (BldC) [Relative time] 2.0 [facility] Comment on above: Critical Value > 4.0 Whole blood prothrombin time Ordered By: Alexandra Hagen on 05-01-2023 PT Coag (Bld) [Time] 21.0 s 11.7-14.9 [facility] normalized rat io (INR) calculationOrdered By: Alexandra Hagen on 04-17-2023 INR Coag (PPP) [Relative time] 1.8 {INR} [facility] Laboratory - CoagulationOrde red By: Alexandra Hagen on 04-17-2023 PT Coag (PPP) [Time] 21.0 s 11.7-14.9 [facility] Laboratory - CoagulationOrde red By: Alexandra Hagen on 03-20-2023 INR Coag (Bld) [Relative time] 2.4 {INR} [facility] Comment on above: Critical Value > 4.0 Whole blood prothrombin time Ordered By: Alexandra Hagen on 03-20-2023 PT Coag (Bld) [Time] 25.7 s 11.7-14.9 [facility] Basophil percentageOrdered B y: Alexandra Hagen on 02-21-2023 Bilirubin [Mass/Vol] 0.60 mg/dL 0.20-1.00 [facility] Comment on above: For patients on eltr ombopag therapy, use of Dimension [place] TBIL is not recommended. Chloride [Moles/Vol] 107 mmol/L 98-107 [facility] Cholesterol [Mass/Vol] 127 mg/dL <200 [facility] Comment on above: <200 mg/dL Desirable 200-240 mg/dL Borderline >240 mg/dL High Risk Glucose [Mass/Vol] 134 mg/dL 74-106 [facility] Comment on above: Fasting Glucose resu lt greater than or equal to 126 mg/dL suggests DIABETES MELLITUS per A.D.A. criteria. Potassium [Moles/Vol] 4.2 mmol/L 3.5-5.1 [facility] Protein [Mass/Vol] 6.2 g/dL 6.4-8.2 [facility] Sodium [Moles/Vol] 138 mmol/L 136-145 [facility] Triglyceride [Mass/Vol] 102 mg/dL <199 [facility] Comment on above: The drugs N-Acetylcy steine and Metamizole may falsely depress this assay.Serum Triglycerides Reference Interval Normal <150 mg/dL Borderline high 150 - 199 mg/dL High 200 - 499 mg/dL Very High > or = 500 mg/dL WBC (Bld) [#/Vol] 7.7 10*3/uL 4.4-11.0 [facility] Blood erythrocytes count (nu mber/volume)Ordered By: Alexandra Hagen on 02-21-2023 RBC (Bld) [#/Vol] 4.19 10*6/uL 4.2-5.4 [facility] Blood hemoglobin measurement (mass/volume)Ordered By: Alexandra Hagen on 02-21-2023 Hemoglobin (Bld) [Mass/Vol] 12.5 g/dL 12.0-15.0 [facility] Blood platelet mean volumeOr dered By: Alexandra Hagen on 02-21-2023 Platelet mean volume (Bld) [Entitic vol] 10.8 fL 6.2-12.0 [facility] Determination of erythrocyte mean corpuscular volume (MCV)Ordered By: Alexandra Hagen on 02-21-2023 MCV (RBC) [Entitic vol] 91.2 fL 81-99 [facility] Hematocrit Auto (Bld) [Volum e fraction]Ordered By: Alexandra Hagen on 02-21-2023 Hematocrit (Bld) [Volume fraction] 38.2 % 37-47 [facility] INR in Blood by Coagulation assayOrdered By: Alexandra Hagen on 02-21-2023 INR Coag (Bld) [Relative time] 2.3 {INR} [facility] Laboratory - Chemistry and C hemistry - challengeOrdered By: Alexandra Hagen on 02-21-2023 ALP [Catalytic activity/Vol] 84 U/L 45-117 [facility] ALT [Catalytic activity/Vol] 11 U/L 13-56 [facility] CO2 [Moles/Vol] 27.0 mmol/L 21.0-32.0 [facility] Globulin (S) [Mass/Vol] 3.3 g/dL 2.2-4.2 [facility] Urea nitrogen/Creatinine [Mass ratio] 14.0 mg/mg 10-20 [facility] Laboratory - CoagulationOrde red By: Alexandra Hagen on 02-21-2023 PT Coag (PPP) [Time] 25.3 s 11.7-14.9 [facility] Laboratory - Hematology and Cell countsOrdered By: Alexandra Hagen on 02-21-2023 Erythrocyte distribution width (RBC) [Entitic vol] 44.8 fL 35.1-43.9 [facility] Erythrocyte distribution width (RBC) [Ratio] 13.4 % 11.6-14.6 [facility] MCH (RBC) [Entitic mass] 29.8 pg 27.0-32.0 [facility] MCHC Auto (RBC) [Mass/Vol]Or dered By: Alexandra Hagen on 02-21-2023 MCHC (RBC) [Mass/Vol] 32.7 g/dL 32-36 [facility] No Panel InformationOrdered By: Alexandra Hagen on 02-21-2023 Estimated GFR (MDRD) Amer 68 mL/min >60 [facility] Comment on above: GFR Calc Estimated GFR (MDRD) Non-Af Amer 56 mL/min >60 [facility] Comment on above: Non- GFR Calc Platelets bldOrdered By: Alexandra Hagen on 02-21-2023 Platelets (Bld) [#/Vol] 297 10*3/uL 150-450 [facility] Serum or plasma albumin viktoria urement (mass/volume)Ordered By: Alexandra Hagen on 02-21-2023 Albumin [Mass/Vol] 2.9 g/dL 3.2-5.0 [facility] Serum or plasma albumin/glob ulin mass ratioOrdered By: Alexandra Hagen on 02-21-2023 Albumin/Globulin [Mass ratio] 0.9 {ratio} 0.9-2.4 [facility] Serum or plasma calcium viktoria urement (mass/volume)Ordered By: Alexandra Hagen on 02-21-2023 Calcium [Mass/Vol] 8.4 mg/dL 8.5-10.1 [facility] Serum or plasma cholesterol in HDL measurement (mass/volume)Ordered By: Alexandra Hagen on 02-21-2023 Cholesterol in HDL [Mass/Vol] 50 mg/dL >40 [facility] Comment on above: The drugs N-Acetylcy steine and Metamizole may falsely depress this assay. Reference Range HDL <40 mg/dL Low HDL Cholesterol HDL >or= 60 mg/dL High HDL Cholesterol Serum or plasma cholesterol in VLDL measurement (mass/volume)Ordered By: Alexandra Hagen on 02-21-2023 Cholesterol in VLDL [Mass/Vol] 20 mg/dL 5-40 [facility] Serum or plasma creatinine m easurement (mass/volume)Ordered By: Alexandra Hagen on 02-21-2023 Creatinine [Mass/Vol] 1.00 mg/dL 0.55-1.02 [facility] Comment on above: The validity of the calculated GFR & GFRAA in patients over 70 years has not been determined. Clinical correlation is essential. Serum or plasma low density lipoprotein (LDL) cholesterol measurement (mass/volume)Ordered By: Alexandra Hagen on 02-21-2023 Cholesterol in LDL [Mass/Vol] 57 mg/dL 0-130 [facility] Serum or plasma urea nitroge n measurement (mass/volume)Ordered By: Alexandra Hagen on 02-21-2023 Urea nitrogen [Mass/Vol] 14 mg/dL 7-18 [facility] Thin prep Papanicolaou smear with manual screeningOrdered By: Alexandra Hagen on 02-21-2023 Thin prep Papanicolaou smear with manual screening 16 U/L 15-37 [facility] Thin prep Papanicolaou smear with manual screening 4 5-15 [facility] Albumin Elph [Mass/Vol]Order ed By: Anant Juarez on 01-20-2023 Albumin [Mass/Vol] 3.4 g/dL 2.9-4.4 [facility] Basophil percentageOrdered B y: Anant Juarez on 01-20-2023 Basophil percentage Comment . [facility] Comment on above: No monoclonality det ected.Performed at: [facility] [id number] Director: Master Vee PhD, Phone: [phone] Interpretation of serum or p lasma protein pattern by immunofixation (narrative resultOrdered By: Anant Juarez on 01-20-2023 Protein Fractions Immunofixation Manuel [Interp] See comment [facility] Comment on above: Result: Not Observed No Panel InformationOrdered By: Anant Juarez on 01-20-2023 Addendum Document Comment . [facility] Comment on above: Protein electrophore sis scan will follow via computer,mail, or consulting actuary delivery. Serum [id number] measu rement by electrophoresisOrdered By: Anant Juarez on 01-20-2023 Alpha 1 globulin Elph [Mass/Vol] 0.3 g/dL 0.0-0.4 [facility] Alpha 1 globulin Elph [Mass/Vol] 0.9 g/dL 0.4-1.0 [facility] Serum globulin measurement ( mass/volume)Ordered By: Anant Juarez on 01-20-2023 Globulin (S) [Mass/Vol] 3.0 g/dL 2.2-3.9 [facility] Serum or plasma IgA measurem ent (mass/volume)Ordered By: Anant Juarez on 01-20-2023 IgA [Mass/Vol] 158 mg/dL 64-422 [facility] Serum or plasma IgG measurem ent (mass/volume)Ordered By: Anant Juarez on 01-20-2023 IgG [Mass/Vol] 847 mg/dL [id number] [facility] Serum or plasma IgM measurem ent (mass/volume)Ordered By: Anant Juarez on 01-20-2023 IgM [Mass/Vol] 48 mg/dL 26-217 [facility] Serum or plasma beta globuli n measurement by electrophoresis (mass/volume)Ordered By: Anant Juarez on 01-20-2023 Beta globulin Elph [Mass/Vol] 1.0 g/dL 0.7-1.3 [facility] Serum or plasma gamma globul in measurement by electrophoresis (mass/volume)Ordered By: Anant Juarez on 01-20-2023 Gamma globulin Elph [Mass/Vol] 0.7 g/dL 0.4-1.8 [facility] Serum or plasma immunoelectr ophoresis interpretation (nominal result)Ordered By: Anant Juarez on 01-20-2023 Interpretation IEP [Interp] Comment . [facility] Comment on above: No monoclonality det ected. Thin prep Papanicolaou smear with manual screeningOrdered By: Anant Juarez on 01-20-2023 Thin prep Papanicolaou smear with manual screening 1.2 0.7-1.7 [facility] Total protein bloodOrdered B y: Anant Juarez on 01-20-2023 Protein [Mass/Vol] 6.4 g/dL 6.0-8.5 [facility] Laboratory - CoagulationOrde red By: Alexandra Hagen on 01-16-2023 INR Coag (Bld) [Relative time] 2.2 {INR} [facility] Comment on above: Critical Value > 4.0 Whole blood prothrombin time Ordered By: Alexandra Hagen on 01-16-2023 PT Coag (Bld) [Time] 24.2 s 11.7-14.9 [facility] Absolute lymphocyte countOrd ered By: Lynn Horn on 12-28-2022 Lymphocytes Auto (Unsp spec) [#/Vol] 1.57 10*3/uL 0.83-4.51 [facility] Basophil percentageOrdered B y: Lynn Horn on 12-28-2022 Basophils/100 WBC (Bld) 0.6 % 0-1 [facility] Chloride [Moles/Vol] 108 mmol/L 98-107 [facility] Eosinophils/100 WBC (Bld) 3.0 % 0-5 [facility] Glucose [Mass/Vol] 117 mg/dL 74-106 [facility] Comment on above: Fasting Glucose resu lt from 100 to 125 mg/dL suggests IMPAIRED HOMEOSTASIS per A.D.A. criteria. Neutrophils (Bld) [#/Vol] 5.3 10*3/uL 2.0-7.7 [facility] Neutrophils/100 WBC (Bld) 66.8 % 47-70 [facility] Potassium [Moles/Vol] 3.9 mmol/L 3.5-5.1 [facility] Sodium [Moles/Vol] 138 mmol/L 136-145 [facility] WBC (Bld) [#/Vol] 7.9 10*3/uL 4.4-11.0 [facility] Blood erythrocytes count (nu mber/volume)Ordered By: Lynn Horn on 12-28-2022 RBC (Bld) [#/Vol] 4.32 10*6/uL 4.2-5.4 [facility] Blood hemoglobin measurement (mass/volume)Ordered By: Lynn Horn on 12-28-2022 Hemoglobin (Bld) [Mass/Vol] 12.8 g/dL 12.0-15.0 [facility] Blood lymphocytes/100 leukoc ytesOrdered By: Lynn Horn on 12-28-2022 Lymphocytes/100 WBC (Bld) 19.8 % 19-41 [facility] Blood monocytes/100 leukocyt esOrdered By: Lynn Horn on 12-28-2022 Monocytes/100 WBC (Bld) 9.5 % 0-10 [facility] Blood platelet mean volumeOr dered By: Lynn Horn on 12-28-2022 Platelet mean volume (Bld) [Entitic vol] 10.6 fL 6.2-12.0 [facility] Determination of erythrocyte mean corpuscular volume (MCV)Ordered By: Lynn Horn on 12-28-2022 MCV (RBC) [Entitic vol] 91.0 fL 81-99 [facility] Hematocrit Auto (Bld) [Volum e fraction]Ordered By: Lynn Horn on 12-28-2022 Hematocrit (Bld) [Volume fraction] 39.3 % 37-47 [facility] INR in Blood by Coagulation assayOrdered By: Lynn Horn on 12-28-2022 INR Coag (Bld) [Relative time] 2.1 {INR} [facility] Laboratory - Chemistry and C hemistry - challengeOrdered By: Lynn Horn on 12-28-2022 CO2 [Moles/Vol] 27.0 mmol/L 21.0-32.0 [facility] Urea nitrogen/Creatinine [Mass ratio] 15.7 mg/mg 10-20 [facility] Laboratory - CoagulationOrde red By: Lynn Horn on 12-28-2022 PT Coag (PPP) [Time] 23.8 s 11.7-14.9 [facility] Laboratory - Hematology and Cell countsOrdered By: Lynn Horn on 12-28-2022 Erythrocyte distribution width (RBC) [Entitic vol] 43.0 fL 35.1-43.9 [facility] Erythrocyte distribution width (RBC) [Ratio] 12.9 % 11.6-14.6 [facility] Immature granulocytes/100 WBC (Bld) 0.300 % 0.0-0.9 [facility] Comment on above: IG% - Immature Granu locytes (promyelocytes, myelocytes and metamyelocytes) > 1% indicates that a LEFT SHIFT is Present. MCH (RBC) [Entitic mass] 29.6 pg 27.0-32.0 [facility] Nucleated RBC/100 WBC (Bld) [Ratio] 0 % 0-5 [facility] MCHC Auto (RBC) [Mass/Vol]Or dered By: Lynn Horn on 12-28-2022 MCHC (RBC) [Mass/Vol] 32.6 g/dL 32-36 [facility] No Panel InformationOrdered By: Lynn Horn on 12-28-2022 Estimated Creatinine Clearance Calc 36.84 ml/min [facility] Estimated GFR (MDRD) Amer 77 mL/min >60 [facility] Comment on above: GFR Calc Estimated GFR (MDRD) Non-Af Amer 64 mL/min >60 [facility] Comment on above: Non- GFR Calc Platelets bldOrdered By: Lois Horn on 12-28-2022 Platelets (Bld) [#/Vol] 272 10*3/uL 150-450 [facility] Serum or plasma calcium viktoria urement (mass/volume)Ordered By: Lynn Horn on 12-28-2022 Calcium [Mass/Vol] 8.3 mg/dL 8.5-10.1 [facility] Serum or plasma creatinine m easurement (mass/volume)Ordered By: Lynn Horn on 12-28-2022 Creatinine [Mass/Vol] 0.89 mg/dL 0.55-1.02 [facility] Comment on above: The validity of the calculated GFR & GFRAA in patients over 70 years has not been determined. Clinical correlation is essential. Serum or plasma urea nitroge n measurement (mass/volume)Ordered By: Lynn Horn on 12-28-2022 Urea nitrogen [Mass/Vol] 14 mg/dL 7-18 [facility] Thin prep Papanicolaou smear with manual screeningOrdered By: Lynn Horn on 12-28-2022 Thin prep Papanicolaou smear with manual screening 3 5-15 [facility] Laboratory - CoagulationOrde red By: Lali Pimentel on 12-27-2022 aPTT Coag (Bld) [Time] 48.2 s 24.1-36.2 [facility] No Panel InformationOrdered By: Lali Pimentel on 12-27-2022 Troponin I High Sensitivity 10 pg/mL 3.0-54.0 [facility] Comment on above: Please Note: New Evon t Units and Gender Specific Reference Ranges. For more information see Policy Stat Procedure [place] High Sensitivity Troponin (TNIH) and attachments. Laboratory - CoagulationOrde red By: Alexandra Hagen on 12-19-2022 INR Coag (Bld) [Relative time] 2.8 {INR} [facility] Comment on above: Critical Value > 4.0 Whole blood prothrombin time Ordered By: Alexandra Hagen on 12-19-2022 PT Coag (Bld) [Time] 29.7 s 11.7-14.9 [facility] Absolute lymphocyte countOrd ered By: Alexandra Hagen on 12-09-2022 Lymphocytes Auto (Unsp spec) [#/Vol] 1.65 10*3/uL 0.83-4.51 [facility] Basophil percentageOrdered B y: Alexandra Hagen on 12-09-2022 Basophils/100 WBC (Bld) 0.4 % 0-1 [facility] Chloride [Moles/Vol] 107 mmol/L 98-107 [facility] Eosinophils/100 WBC (Bld) 3.6 % 0-5 [facility] Glucose [Mass/Vol] 125 mg/dL 74-106 [facility] Comment on above: Fasting Glucose resu lt from 100 to 125 mg/dL suggests IMPAIRED HOMEOSTASIS per A.D.A. criteria. Neutrophils (Bld) [#/Vol] 4.3 10*3/uL 2.0-7.7 [facility] Neutrophils/100 WBC (Bld) 61.6 % 47-70 [facility] Potassium [Moles/Vol] 4.8 mmol/L 3.5-5.1 [facility] Sodium [Moles/Vol] 138 mmol/L 136-145 [facility] WBC (Bld) [#/Vol] 7.0 10*3/uL 4.4-11.0 [facility] Blood erythrocytes count (nu mber/volume)Ordered By: Alexandra Hagen on 12-09-2022 RBC (Bld) [#/Vol] 4.30 10*6/uL 4.2-5.4 [facility] Blood hemoglobin measurement (mass/volume)Ordered By: Alexandra Hagen on 12-09-2022 Hemoglobin (Bld) [Mass/Vol] 13.1 g/dL 12.0-15.0 [facility] Blood lymphocytes/100 leukoc ytesOrdered By: Alexandra Hagen on 12-09-2022 Lymphocytes/100 WBC (Bld) 23.7 % 19-41 [facility] Blood monocytes/100 leukocyt esOrdered By: Alexandra Hagen on 12-09-2022 Monocytes/100 WBC (Bld) 10.4 % 0-10 [facility] Blood platelet mean volumeOr dered By: Alexandra Hagen on 12-09-2022 Platelet mean volume (Bld) [Entitic vol] 10.7 fL 6.2-12.0 [facility] Determination of erythrocyte mean corpuscular volume (MCV)Ordered By: Alexandra Hagen on 12-09-2022 MCV (RBC) [Entitic vol] 92.3 fL 81-99 [facility] Hematocrit Auto (Bld) [Volum e fraction]Ordered By: Alexandra Hagen on 12-09-2022 Hematocrit (Bld) [Volume fraction] 39.7 % 37-47 [facility] Laboratory - Chemistry and C hemistry - challengeOrdered By: Alexandra Hagen on 12-09-2022 CO2 [Moles/Vol] 26.0 mmol/L 21.0-32.0 [facility] Urea nitrogen/Creatinine [Mass ratio] 14.4 mg/mg 10-20 [facility] Laboratory - Hematology and Cell countsOrdered By: Alexandra Hagen on 12-09-2022 Erythrocyte distribution width (RBC) [Entitic vol] 44.0 fL 35.1-43.9 [facility] Erythrocyte distribution width (RBC) [Ratio] 13.1 % 11.6-14.6 [facility] Immature granulocytes/100 WBC (Bld) 0.300 % 0.0-0.9 [facility] Comment on above: IG% - Immature Granu locytes (promyelocytes, myelocytes and metamyelocytes) > 1% indicates that a LEFT SHIFT is Present. MCH (RBC) [Entitic mass] 30.5 pg 27.0-32.0 [facility] Nucleated RBC/100 WBC (Bld) [Ratio] 0 % 0-5 [facility] MCHC Auto (RBC) [Mass/Vol]Or dered By: Alexandra Hagen on 12-09-2022 MCHC (RBC) [Mass/Vol] 33.0 g/dL 32-36 [facility] No Panel InformationOrdered By: Alexandra Hagen on 12-09-2022 Estimated GFR (MDRD) Amer 60 mL/min >60 [facility] Comment on above: GFR Calc Estimated GFR (MDRD) Non-Af Amer 49 mL/min >60 [facility] Comment on above: Non- GFR Calc Platelets bldOrdered By: Alexandra Hagen on 12-09-2022 Platelets (Bld) [#/Vol] 293 10*3/uL 150-450 [facility] Serum or plasma calcium viktoria urement (mass/volume)Ordered By: Alexandra Hagen on 12-09-2022 Calcium [Mass/Vol] 8.7 mg/dL 8.5-10.1 [facility] Serum or plasma creatinine m easurement (mass/volume)Ordered By: Alexandra Hagen on 12-09-2022 Creatinine [Mass/Vol] 1.11 mg/dL 0.55-1.02 [facility] Comment on above: The validity of the calculated GFR & GFRAA in patients over 70 years has not been determined. Clinical correlation is essential. Serum or plasma urea nitroge n measurement (mass/volume)Ordered By: Alexandra Hagen on 12-09-2022 Urea nitrogen [Mass/Vol] 16 mg/dL 7-18 [facility] Thin prep Papanicolaou smear with manual screeningOrdered By: Alexandra Hagen on 12-09-2022 Thin prep Papanicolaou smear with manual screening 5 5-15 [facility] Whole blood hemoglobin A1c/t otal hemoglobin ratio (mass fraction)Ordered By: Alexandra Hagen on 12-09-2022 HbA1c (Bld) [Mass fraction] 6.7 % 3.8-5.6 [facility] Comment on above: Normal < 5.7 % Predi abetic 5.7 - 6.4 % Diabetic >or= 6.5 % Please note range changes. Basophil percentageOrdered B y: Alexandra Hagen on 11-20-2022 Bilirubin [Mass/Vol] 0.50 mg/dL 0.20-1.00 [facility] Comment on above: For patients on eltr ombopag therapy, use of Dimension [place] TBIL is not recommended. Chloride [Moles/Vol] 105 mmol/L 98-107 [facility] Cholesterol [Mass/Vol] 167 mg/dL <200 [facility] Comment on above: <200 mg/dL Desirable 200-240 mg/dL Borderline >240 mg/dL High Risk Glucose [Mass/Vol] 153 mg/dL 74-106 [facility] Comment on above: Fasting Glucose resu lt greater than or equal to 126 mg/dL suggests DIABETES MELLITUS per A.D.A. criteria. Potassium [Moles/Vol] 4.2 mmol/L 3.5-5.1 [facility] Protein [Mass/Vol] 6.7 g/dL 6.4-8.2 [facility] Sodium [Moles/Vol] 138 mmol/L 136-145 [facility] Triglyceride [Mass/Vol] 120 mg/dL <199 [facility] Comment on above: The drugs N-Acetylcy steine and Metamizole may falsely depress this assay.Serum Triglycerides Reference Interval Normal <150 mg/dL Borderline high 150 - 199 mg/dL High 200 - 499 mg/dL Very High > or = 500 mg/dL WBC (Bld) [#/Vol] 7.4 10*3/uL 4.4-11.0 [facility] Blood erythrocytes count (nu mber/volume)Ordered By: Alexandra Hagen on 11-20-2022 RBC (Bld) [#/Vol] 4.37 10*6/uL 4.2-5.4 [facility] Blood hemoglobin measurement (mass/volume)Ordered By: Alexandra Hagen on 11-20-2022 Hemoglobin (Bld) [Mass/Vol] 13.1 g/dL 12.0-15.0 [facility] Blood platelet mean volumeOr dered By: Alexandra Hagen on 11-20-2022 Platelet mean volume (Bld) [Entitic vol] 10.8 fL 6.2-12.0 [facility] Determination of erythrocyte mean corpuscular volume (MCV)Ordered By: Alexandra Hagen on 11-20-2022 MCV (RBC) [Entitic vol] 91.5 fL 81-99 [facility] Hematocrit Auto (Bld) [Volum e fraction]Ordered By: Alexandra Hagen on 11-20-2022 Hematocrit (Bld) [Volume fraction] 40.0 % 37-47 [facility] INR in Blood by Coagulation assayOrdered By: Alexandra Hagen on 11-20-2022 INR Coag (Bld) [Relative time] 2.0 {INR} [facility] Laboratory - Chemistry and C hemistry - challengeOrdered By: Alexandra Hagen on 11-20-2022 ALP [Catalytic activity/Vol] 72 U/L 45-117 [facility] ALT [Catalytic activity/Vol] 13 U/L 13-56 [facility] CO2 [Moles/Vol] 30.0 mmol/L 21.0-32.0 [facility] Globulin (S) [Mass/Vol] 3.6 g/dL 2.2-4.2 [facility] Urea nitrogen/Creatinine [Mass ratio] 12.8 mg/mg 10-20 [facility] Laboratory - CoagulationOrde red By: Alexandra Hagen on 11-20-2022 PT Coag (PPP) [Time] 22.6 s 11.7-14.9 [facility] Laboratory - Hematology and Cell countsOrdered By: Alexandra Hagen on 11-20-2022 Erythrocyte distribution width (RBC) [Entitic vol] 43.4 fL 35.1-43.9 [facility] Erythrocyte distribution width (RBC) [Ratio] 12.9 % 11.6-14.6 [facility] MCH (RBC) [Entitic mass] 30.0 pg 27.0-32.0 [facility] MCHC Auto (RBC) [Mass/Vol]Or dered By: Alexandra Hagen on 11-20-2022 MCHC (RBC) [Mass/Vol] 32.8 g/dL 32-36 [facility] No Panel InformationOrdered By: Alexandra Hagen on 11-20-2022 Estimated GFR (MDRD) Amer 61 mL/min >60 [facility] Comment on above: GFR Calc Estimated GFR (MDRD) Non-Af Amer 50 mL/min >60 [facility] Comment on above: Non- GFR Calc Platelets bldOrdered By: Alexandra Hagen on 11-20-2022 Platelets (Bld) [#/Vol] 310 10*3/uL 150-450 [facility] Serum or plasma albumin viktoria urement (mass/volume)Ordered By: Alexandra Hagen on 11-20-2022 Albumin [Mass/Vol] 3.1 g/dL 3.2-5.0 [facility] Serum or plasma albumin/glob ulin mass ratioOrdered By: Alexandra Hagen on 11-20-2022 Albumin/Globulin [Mass ratio] 0.9 {ratio} 0.9-2.4 [facility] Serum or plasma calcium viktoria urement (mass/volume)Ordered By: Alexandra Hagen on 11-20-2022 Calcium [Mass/Vol] 8.6 mg/dL 8.5-10.1 [facility] Serum or plasma cholesterol in HDL measurement (mass/volume)Ordered By: Alexandra Hagen on 11-20-2022 Cholesterol in HDL [Mass/Vol] 55 mg/dL >40 [facility] Comment on above: The drugs N-Acetylcy steine and Metamizole may falsely depress this assay. Reference Range HDL <40 mg/dL Low HDL Cholesterol HDL >or= 60 mg/dL High HDL Cholesterol Serum or plasma cholesterol in VLDL measurement (mass/volume)Ordered By: Alexandra Hagen on 11-20-2022 Cholesterol in VLDL [Mass/Vol] 24 mg/dL 5-40 [facility] Serum or plasma creatinine m easurement (mass/volume)Ordered By: Alexandra Hagen on 11-20-2022 Creatinine [Mass/Vol] 1.09 mg/dL 0.55-1.02 [facility] Comment on above: The validity of the calculated GFR & GFRAA in patients over 70 years has not been determined. Clinical correlation is essential. Serum or plasma low density lipoprotein (LDL) cholesterol measurement (mass/volume)Ordered By: Alexandra Hagen on 11-20-2022 Cholesterol in LDL [Mass/Vol] 88 mg/dL 0-130 [facility] Serum or plasma urea nitroge n measurement (mass/volume)Ordered By: Alexandra Hagen on 11-20-2022 Urea nitrogen [Mass/Vol] 14 mg/dL 7-18 [facility] Thin prep Papanicolaou smear with manual screeningOrdered By: Alexandra Hagen on 11-20-2022 Thin prep Papanicolaou smear with manual screening 15 U/L 15-37 [facility] Thin prep Papanicolaou smear with manual screening 3 5-15 [facility] Absolute lymphocyte countOrd ered By: Mo Corea on 11-18-2022 Lymphocytes Auto (Unsp spec) [#/Vol] 1.95 10*3/uL 0.83-4.51 [facility] Basophil percentageOrdered B y: Mo Corea on 11-18-2022 Basophil percentage 0-5 SEEN /hpf 0-5 [facility] Basophils/100 WBC (Bld) 0.4 % 0-1 [facility] Bilirubin [Mass/Vol] 0.40 mg/dL 0.20-1.00 [facility] Comment on above: For patients on eltr ombopag therapy, use of Dimension [place] TBIL is not recommended. Chloride [Moles/Vol] 108 mmol/L 98-107 [facility] Eosinophils/100 WBC (Bld) 3.4 % 0-5 [facility] Glucose [Mass/Vol] 126 mg/dL 74-106 [facility] Comment on above: Fasting Glucose resu lt greater than or equal to 126 mg/dL suggests DIABETES MELLITUS per A.D.A. criteria. Neutrophils (Bld) [#/Vol] 4.4 10*3/uL 2.0-7.7 [facility] Neutrophils/100 WBC (Bld) 59.9 % 47-70 [facility] Potassium [Moles/Vol] 3.9 mmol/L 3.5-5.1 [facility] Protein [Mass/Vol] 6.9 g/dL 6.4-8.2 [facility] Sodium [Moles/Vol] 140 mmol/L 136-145 [facility] WBC (Bld) [#/Vol] 7.3 10*3/uL 4.4-11.0 [facility] Bilirubin Test strip Ql (U)O rdered By: Mo Corea on 11-18-2022 Bilirubin Ql (U) Negative Negative [facility] Blood erythrocytes count (nu mber/volume)Ordered By: Mo Corea on 11-18-2022 RBC (Bld) [#/Vol] 4.63 10*6/uL 4.2-5.4 [facility] Blood hemoglobin measurement (mass/volume)Ordered By: Mo Corea on 11-18-2022 Hemoglobin (Bld) [Mass/Vol] 13.9 g/dL 12.0-15.0 [facility] Blood lymphocytes/100 leukoc ytesOrdered By: Mo Corea on 11-18-2022 Lymphocytes/100 WBC (Bld) 26.8 % 19-41 [facility] Blood monocytes/100 leukocyt esOrdered By: Mo Corea on 11-18-2022 Monocytes/100 WBC (Bld) 9.2 % 0-10 [facility] Blood platelet mean volumeOr dered By: Mo Corea on 11-18-2022 Platelet mean volume (Bld) [Entitic vol] 10.5 fL 6.2-12.0 [facility] Determination of erythrocyte mean corpuscular volume (MCV)Ordered By: Mo Corea on 11-18-2022 MCV (RBC) [Entitic vol] 92.4 fL 81-99 [facility] Hematocrit Auto (Bld) [Volum e fraction]Ordered By: Mo Corea on 11-18-2022 Hematocrit (Bld) [Volume fraction] 42.8 % 37-47 [facility] INR in Blood by Coagulation assayOrdered By: Mo Corea on 11-18-2022 INR Coag (Bld) [Relative time] 2.0 {INR} [facility] Ketones Test strip Ql (U)Ord ered By: Mo Corea on 11-18-2022 Ketones Ql (U) Negative Negative [facility] Laboratory - Chemistry and C hemistry - challengeOrdered By: Mo Corea on 11-18-2022 ALP [Catalytic activity/Vol] 76 U/L 45-117 [facility] ALT [Catalytic activity/Vol] 13 U/L 13-56 [facility] CO2 [Moles/Vol] 30.0 mmol/L 21.0-32.0 [facility] Globulin (S) [Mass/Vol] 3.6 g/dL 2.2-4.2 [facility] Urea nitrogen/Creatinine [Mass ratio] 13.6 mg/mg 10-20 [facility] Laboratory - CoagulationOrde red By: Mo Corea on 11-18-2022 aPTT Coag (Bld) [Time] 48.1 s 24.1-36.2 [facility] PT Coag (PPP) [Time] 22.7 s 11.7-14.9 [facility] Laboratory - Hematology and Cell countsOrdered By: Mo Corea on 11-18-2022 Erythrocyte distribution width (RBC) [Entitic vol] 44.2 fL 35.1-43.9 [facility] Erythrocyte distribution width (RBC) [Ratio] 13.1 % 11.6-14.6 [facility] Immature granulocytes/100 WBC (Bld) 0.300 % 0.0-0.9 [facility] Comment on above: IG% - Immature Granu locytes (promyelocytes, myelocytes and metamyelocytes) > 1% indicates that a LEFT SHIFT is Present. MCH (RBC) [Entitic mass] 30.0 pg 27.0-32.0 [facility] Nucleated RBC/100 WBC (Bld) [Ratio] 0 % 0-5 [facility] MCHC Auto (RBC) [Mass/Vol]Or dered By: Mo Corea on 11-18-2022 MCHC (RBC) [Mass/Vol] 32.5 g/dL 32-36 [facility] Mucus LM Ql (Urine sed)Order ed By: Mo Corea on 11-18-2022 Mucus Ql (Urine sed) 0 SEEN /hpf [facility] Nitrite Test strip Ql (U)Ord ered By: Mo Corea on 11-18-2022 Nitrite Ql (U) Negative Negative [facility] No Panel InformationOrdered By: Mo Corea on 11-18-2022 Estimated Creatinine Clearance Calc 31.83 ml/min [facility] Estimated GFR (MDRD) Amer 65 mL/min >60 [facility] Comment on above: GFR Calc Estimated GFR (MDRD) Non-Af Amer 54 mL/min >60 [facility] Comment on above: Non- GFR Calc Platelets bldOrdered By: Rebecca Corea on 11-18-2022 Platelets (Bld) [#/Vol] 289 10*3/uL 150-450 [facility] Protein Test strip Ql (U)Ord ered By: Mo Corea on 11-18-2022 Protein Ql (U) 15 mg/dl Negative [facility] Serum or plasma albumin viktoria urement (mass/volume)Ordered By: Mo Corea on 11-18-2022 Albumin [Mass/Vol] 3.3 g/dL 3.2-5.0 [facility] Serum or plasma albumin/glob ulin mass ratioOrdered By: Mo Corea on 11-18-2022 Albumin/Globulin [Mass ratio] 0.9 {ratio} 0.9-2.4 [facility] Serum or plasma calcium viktoria urement (mass/volume)Ordered By: Mo Corea on 11-18-2022 Calcium [Mass/Vol] 8.7 mg/dL 8.5-10.1 [facility] Serum or plasma creatinine m easurement (mass/volume)Ordered By: Mo Corea on 11-18-2022 Creatinine [Mass/Vol] 1.03 mg/dL 0.55-1.02 [facility] Comment on above: The validity of the calculated GFR & GFRAA in patients over 70 years has not been determined. Clinical correlation is essential. Serum or plasma urea nitroge n measurement (mass/volume)Ordered By: Mo Corea on 11-18-2022 Urea nitrogen [Mass/Vol] 14 mg/dL 7-18 [facility] Squamous epithelial cells de tection in urine sediment by light microscopyOrdered By: Mo Corea on 11-18-2022 Epithelial cells.squamous LM Ql (Urine sed) 0-5 SEEN /hpf 5-10 [facility] Thin prep Papanicolaou smear with manual screeningOrdered By: Mo Corea on 11-18-2022 Thin prep Papanicolaou smear with manual screening 15 U/L 15-37 [facility] Thin prep Papanicolaou smear with manual screening 2 5-15 [facility] Urine blood detectionOrdered By: Mo Corea on 11-18-2022 RBC Ql (U) Negative Negative [facility] RBC Ql (U) 0 SEEN /hpf 0-5 [facility] Urine clarityOrdered By: Rebecca Corea on 11-18-2022 Clarity (U) Sl. Cloudy Clear [facility] Urine color determinationOrd ered By: Mo Corea on 11-18-2022 Color (U) Yellow Yellow [facility] Urine glucose detectionOrder ed By: Mo Corea on 11-18-2022 Glucose Ql (U) Normal mg/dl Normal [facility] Urine leukocyte esterase det ection by dipstickOrdered By: Mo Corea on 11-18-2022 Leukocyte esterase Test strip Ql (U) 25 /ul Negative [facility] Urine pHOrdered By: Mo amado on 11-18-2022 pH (U) 7.0 [pH] 5.0 - 8.0 [facility] Urine sediment bacteria coun t by microscopy (number/high power field)Ordered By: Mo Corea on 11-18-2022 Bacteria LM.HPF (Urine sed) [#/Area] 0 /[HPF] None Seen [facility] Urine specific gravity measu rementOrdered By: Mo Corea on 11-18-2022 Specific gravity (U) [Rel density] 1.010 1.002-1.030 [facility] Urobilinogen Auto test strip Ql (U)Ordered By: Mo Corea on 11-18-2022 Urobilinogen Ql (U) Normal mg/dl Normal [facility] Absolute lymphocyte countOrd ered By: Sae Carballo on 11-15-2022 Lymphocytes Auto (Unsp spec) [#/Vol] 2.03 10*3/uL 0.83-4.51 [facility] Basophil percentageOrdered B y: Sae Carballo on 11-15-2022 Basophils/100 WBC (Bld) 0.5 % 0-1 [facility] Chloride [Moles/Vol] 107 mmol/L 98-107 [facility] Cholesterol [Mass/Vol] 164 mg/dL <200 [facility] Comment on above: <200 mg/dL Desirable 200-240 mg/dL Borderline >240 mg/dL High Risk Eosinophils/100 WBC (Bld) 3.5 % 0-5 [facility] Glucose [Mass/Vol] 124 mg/dL 74-106 [facility] Comment on above: Fasting Glucose resu lt from 100 to 125 mg/dL suggests IMPAIRED HOMEOSTASIS per A.D.A. criteria. Neutrophils (Bld) [#/Vol] 4.7 10*3/uL 2.0-7.7 [facility] Neutrophils/100 WBC (Bld) 60.3 % 47-70 [facility] Potassium [Moles/Vol] 4.1 mmol/L 3.5-5.1 [facility] Sodium [Moles/Vol] 139 mmol/L 136-145 [facility] Triglyceride [Mass/Vol] 133 mg/dL <199 [facility] Comment on above: The drugs N-Acetylcy steine and Metamizole may falsely depress this assay.Serum Triglycerides Reference Interval Normal <150 mg/dL Borderline high 150 - 199 mg/dL High 200 - 499 mg/dL Very High > or = 500 mg/dL WBC (Bld) [#/Vol] 7.8 10*3/uL 4.4-11.0 [facility] Blood erythrocytes count (nu mber/volume)Ordered By: Sae Carballo on 11-15-2022 RBC (Bld) [#/Vol] 4.32 10*6/uL 4.2-5.4 [facility] Blood hemoglobin measurement (mass/volume)Ordered By: Sae Carballo on 11-15-2022 Hemoglobin (Bld) [Mass/Vol] 12.9 g/dL 12.0-15.0 [facility] Blood lymphocytes/100 leukoc ytesOrdered By: Sae Carballo on 11-15-2022 Lymphocytes/100 WBC (Bld) 26.2 % 19-41 [facility] Blood monocytes/100 leukocyt esOrdered By: Sae Carballo on 11-15-2022 Monocytes/100 WBC (Bld) 9.4 % 0-10 [facility] Blood platelet mean volumeOr dered By: Sae Carballo on 11-15-2022 Platelet mean volume (Bld) [Entitic vol] 10.6 fL 6.2-12.0 [facility] Determination of erythrocyte mean corpuscular volume (MCV)Ordered By: Sae Carballo on 11-15-2022 MCV (RBC) [Entitic vol] 91.7 fL 81-99 [facility] Hematocrit Auto (Bld) [Volum e fraction]Ordered By: Sae Carballo on 11-15-2022 Hematocrit (Bld) [Volume fraction] 39.6 % 37-47 [facility] INR in Blood by Coagulation assayOrdered By: Sae Carballo on 11-15-2022 INR Coag (Bld) [Relative time] 2.0 {INR} [facility] Laboratory - Chemistry and C hemistry - challengeOrdered By: Sae Carballo on 11-15-2022 CO2 [Moles/Vol] 25.0 mmol/L 21.0-32.0 [facility] Urea nitrogen/Creatinine [Mass ratio] 15.8 mg/mg 10-20 [facility] Laboratory - CoagulationOrde red By: Sae Carballo on 11-15-2022 PT Coag (PPP) [Time] 23.0 s 11.7-14.9 [facility] Laboratory - Hematology and Cell countsOrdered By: Sae Carballo on 11-15-2022 Erythrocyte distribution width (RBC) [Entitic vol] 43.4 fL 35.1-43.9 [facility] Erythrocyte distribution width (RBC) [Ratio] 12.9 % 11.6-14.6 [facility] Immature granulocytes/100 WBC (Bld) 0.100 % 0.0-0.9 [facility] Comment on above: IG% - Immature Granu locytes (promyelocytes, myelocytes and metamyelocytes) > 1% indicates that a LEFT SHIFT is Present. MCH (RBC) [Entitic mass] 29.9 pg 27.0-32.0 [facility] Nucleated RBC/100 WBC (Bld) [Ratio] 0 % 0-5 [facility] MCHC Auto (RBC) [Mass/Vol]Or dered By: Sae Carballo on 11-15-2022 MCHC (RBC) [Mass/Vol] 32.6 g/dL 32-36 [facility] No Panel InformationOrdered By: Sae Carballo on 11-15-2022 Estimated Creatinine Clearance Calc 37.26 ml/min [facility] Estimated GFR (MDRD) Amer 78 mL/min >60 [facility] Comment on above: GFR Calc Estimated GFR (MDRD) Non-Af Amer 64 mL/min >60 [facility] Comment on above: Non- GFR Calc Platelets bldOrdered By: Ramos Carballo on 11-15-2022 Platelets (Bld) [#/Vol] 278 10*3/uL 150-450 [facility] Serum or plasma calcium viktoria urement (mass/volume)Ordered By: Sae Carballo on 11-15-2022 Calcium [Mass/Vol] 8.5 mg/dL 8.5-10.1 [facility] Serum or plasma cholesterol in HDL measurement (mass/volume)Ordered By: Sae Carballo on 11-15-2022 Cholesterol in HDL [Mass/Vol] 49 mg/dL >40 [facility] Comment on above: The drugs N-Acetylcy steine and Metamizole may falsely depress this assay. Reference Range HDL <40 mg/dL Low HDL Cholesterol HDL >or= 60 mg/dL High HDL Cholesterol Serum or plasma cholesterol in VLDL measurement (mass/volume)Ordered By: Sae Carballo on 11-15-2022 Cholesterol in VLDL [Mass/Vol] 27 mg/dL 5-40 [facility] Serum or plasma creatinine m easurement (mass/volume)Ordered By: Sae Carballo on 11-15-2022 Creatinine [Mass/Vol] 0.88 mg/dL 0.55-1.02 [facility] Comment on above: The validity of the calculated GFR & GFRAA in patients over 70 years has not been determined. Clinical correlation is essential. Serum or plasma low density lipoprotein (LDL) cholesterol measurement (mass/volume)Ordered By: Sae Carballo on 11-15-2022 Cholesterol in LDL [Mass/Vol] 88 mg/dL 0-130 [facility] Serum or plasma urea nitroge n measurement (mass/volume)Ordered By: Sae Carballo on 11-15-2022 Urea nitrogen [Mass/Vol] 14 mg/dL 7-18 [facility] Thin prep Papanicolaou smear with manual screeningOrdered By: Sae Carballo on 11-15-2022 Thin prep Papanicolaou smear with manual screening 7 5-15 [facility] Absolute lymphocyte countOrd ered By: Neri Mitchell on 11-14-2022 Lymphocytes Auto (Unsp spec) [#/Vol] 2.35 10*3/uL 0.83-4.51 [facility] Basophil percentageOrdered B y: Neri Mitchell on 11-14-2022 Basophils/100 WBC (Bld) 0.6 % 0-1 [facility] Chloride [Moles/Vol] 104 mmol/L 98-107 [facility] Eosinophils/100 WBC (Bld) 2.4 % 0-5 [facility] Glucose [Mass/Vol] 135 mg/dL 74-106 [facility] Comment on above: Fasting Glucose resu lt greater than or equal to 126 mg/dL suggests DIABETES MELLITUS per A.D.A. criteria. Neutrophils (Bld) [#/Vol] 6.0 10*3/uL 2.0-7.7 [facility] Neutrophils/100 WBC (Bld) 64.0 % 47-70 [facility] Potassium [Moles/Vol] 4.0 mmol/L 3.5-5.1 [facility] Sodium [Moles/Vol] 138 mmol/L 136-145 [facility] WBC (Bld) [#/Vol] 9.4 10*3/uL 4.4-11.0 [facility] Blood erythrocytes count (nu mber/volume)Ordered By: Neri Mitchell on 11-14-2022 RBC (Bld) [#/Vol] 4.79 10*6/uL 4.2-5.4 [facility] Blood hemoglobin measurement (mass/volume)Ordered By: Neri Mitchell on 11-14-2022 Hemoglobin (Bld) [Mass/Vol] 14.3 g/dL 12.0-15.0 [facility] Blood lymphocytes/100 leukoc ytesOrdered By: Neri Mitchell on 11-14-2022 Lymphocytes/100 WBC (Bld) 24.9 % 19-41 [facility] Blood monocytes/100 leukocyt esOrdered By: Neri Mitchell on 11-14-2022 Monocytes/100 WBC (Bld) 7.8 % 0-10 [facility] Blood platelet mean volumeOr dered By: Neri Mitchell on 11-14-2022 Platelet mean volume (Bld) [Entitic vol] 10.6 fL 6.2-12.0 [facility] Determination of erythrocyte mean corpuscular volume (MCV)Ordered By: Neri Mitchell on 11-14-2022 MCV (RBC) [Entitic vol] 93.5 fL 81-99 [facility] Glucose Glucometer (BldC) [M ass/Vol]Ordered By: Neri Mitchell on 11-14-2022 Glucose [Mass/Vol] 136 mg/dL 74-106 [facility] Comment on above: MANAGEMENT OF PATIEN T CARE PER NURSING PROTOCOL Hematocrit Auto (Bld) [Volum e fraction]Ordered By: Neri Mitchell on 11-14-2022 Hematocrit (Bld) [Volume fraction] 44.8 % 37-47 [facility] INR in Blood by Coagulation assayOrdered By: Neri Mitchell on 11-14-2022 INR Coag (Bld) [Relative time] 1.8 {INR} [facility] Laboratory - Chemistry and C hemistry - challengeOrdered By: Neri Mitchell on 11-14-2022 CO2 [Moles/Vol] 28.0 mmol/L 21.0-32.0 [facility] Urea nitrogen/Creatinine [Mass ratio] 12.3 mg/mg 10-20 [facility] Laboratory - CoagulationOrde red By: Nrei Mitchell on 11-14-2022 aPTT Coag (Bld) [Time] 43.3 s 24.1-36.2 [facility] PT Coag (PPP) [Time] 21.3 s 11.7-14.9 [facility] Laboratory - Hematology and Cell countsOrdered By: Neri Mitchell on 11-14-2022 Erythrocyte distribution width (RBC) [Entitic vol] 44.7 fL 35.1-43.9 [facility] Erythrocyte distribution width (RBC) [Ratio] 13.0 % 11.6-14.6 [facility] Immature granulocytes/100 WBC (Bld) 0.300 % 0.0-0.9 [facility] Comment on above: IG% - Immature Granu locytes (promyelocytes, myelocytes and metamyelocytes) > 1% indicates that a LEFT SHIFT is Present. MCH (RBC) [Entitic mass] 29.9 pg 27.0-32.0 [facility] Nucleated RBC/100 WBC (Bld) [Ratio] 0 % 0-5 [facility] MCHC Auto (RBC) [Mass/Vol]Or dered By: Neri Mitchell on 11-14-2022 MCHC (RBC) [Mass/Vol] 31.9 g/dL 32-36 [facility] No Panel InformationOrdered By: Neri Mitchell on 11-14-2022 Estimated Creatinine Clearance Calc 28.76 ml/min [facility] Estimated GFR (MDRD) Amer 58 mL/min >60 [facility] Comment on above: GFR Calc Estimated GFR (MDRD) Non-Af Amer 48 mL/min >60 [facility] Comment on above: Non- GFR Calc Troponin I High Sensitivity 10 pg/mL 3.0-54.0 [facility] Comment on above: Please Note: New Evon t Units and Gender Specific Reference Ranges. For more information see Policy Stat Procedure [place] High Sensitivity Troponin (TNIH) and attachments. Platelets bldOrdered By: Prasad Mitchell on 11-14-2022 Platelets (Bld) [#/Vol] 313 10*3/uL 150-450 [facility] Serum or plasma calcium viktoria urement (mass/volume)Ordered By: Neri Mitchell on 11-14-2022 Calcium [Mass/Vol] 9.0 mg/dL 8.5-10.1 [facility] Serum or plasma creatinine m easurement (mass/volume)Ordered By: Neri Mitchell on 11-14-2022 Creatinine [Mass/Vol] 1.14 mg/dL 0.55-1.02 [facility] Comment on above: The validity of the calculated GFR & GFRAA in patients over 70 years has not been determined. Clinical correlation is essential. Serum or plasma urea nitroge n measurement (mass/volume)Ordered By: Neri Mitchell on 11-14-2022 Urea nitrogen [Mass/Vol] 14 mg/dL 7-18 [facility] Thin prep Papanicolaou smear with manual screeningOrdered By: Neri Mitchell on 11-14-2022 Thin prep Papanicolaou smear with manual screening 6 5-15 [facility] INR in Blood by Coagulation assayOrdered By: Dr. Juarez on 09-18-2022 INR Coag (Bld) [Relative time] 1.8 {INR} [facility] Laboratory - CoagulationOrde red By: Dr. Juarez on 09-18-2022 PT Coag (PPP) [Time] 20.9 s 11.7-14.9 [facility] No Panel InformationOrdered By: Anant Juarez on 09-18-2022 Free Lambda Light Chains, Quant 15.7 mg/L 5.7-26.3 [facility] Whole Blood Vitamin B1 Level 111.8 nmol/L 66.5-200.0 [facility] Comment on above: Performed at: [employer] [address] [id number] Director: Master Vee PhD, Phone: [phone] at: [facility] [address] [id number] Director: Brandon Wells MD, Phone: [phone] Serum immunoglobulin kappa l ight chains/immunoglobulin lambda light chains mass ratioOrdered By: Anant Juarez on 09-18-2022 Immunoglobulin light chains.kappa/Immunoglobul in light chains.lambda (S) [Mass ratio] 1.74 0.26-1.65 [facility] Serum or plasma folate measu rement (mass/volume)Ordered By: Dr. Juarez on 09-18-2022 Folate [Mass/Vol] 51.90 ng/mL 3.1-55.4 [facility] Comment on above: Slight Hemolysis, Re sult may be falsely increased. Serum or plasma immunoglobul in kappa light chains measurement (mass/volume)Ordered By: Anant Juarez on 09-18-2022 Immunoglobulin light chains.kappa [Mass/Vol] 27.3 mg/L 3.3-19.4 [facility] Culture, urineOrdered By: Slim Doran on 09-17-2022 Bacteria identified Cx Nom (U) Streptococcus agalactiae (B) [facility] INR in Blood by Coagulation assayOrdered By: Dr. Doran on 09-13-2022 INR Coag (Bld) [Relative time] 1.5 {INR} [facility] Laboratory - CoagulationOrde red By: Dr. Doran on 09-13-2022 PT Coag (PPP) [Time] 18.1 s 11.7-14.9 [facility] Absolute lymphocyte countOrd ered By: Dr. Barcenas on 09-08-2022 Lymphocytes Auto (Unsp spec) [#/Vol] 2.60 10*3/uL 0.83-4.51 [facility] Basophil percentageOrdered B y: Dr. Barcenas on 09-08-2022 Basophil percentage 0 SEEN /hpf 0-5 [facility] Basophils/100 WBC (Bld) 0.4 % 0-1 [facility] Bilirubin [Mass/Vol] 0.30 mg/dL 0.20-1.00 [facility] Comment on above: For patients on eltr ombopag therapy, use of Dimension [place] TBIL is not recommended. Chloride [Moles/Vol] 103 mmol/L 98-107 [facility] Eosinophils/100 WBC (Bld) 2.3 % 0-5 [facility] Glucose [Mass/Vol] 78 mg/dL 74-106 [facility] Neutrophils (Bld) [#/Vol] 5.2 10*3/uL 2.0-7.7 [facility] Neutrophils/100 WBC (Bld) 57.4 % 47-70 [facility] Potassium [Moles/Vol] 3.8 mmol/L 3.5-5.1 [facility] Protein [Mass/Vol] 6.9 g/dL 6.4-8.2 [facility] Sodium [Moles/Vol] 139 mmol/L 136-145 [facility] WBC (Bld) [#/Vol] 9.1 10*3/uL 4.4-11.0 [facility] Bilirubin Test strip Ql (U)O rdered By: Dr. Barcenas on 09-08-2022 Bilirubin Ql (U) Negative Negative [facility] Blood erythrocytes count (nu mber/volume)Ordered By: Dr. Barcenas on 09-08-2022 RBC (Bld) [#/Vol] 4.48 10*6/uL 4.2-5.4 [facility] Blood hemoglobin measurement (mass/volume)Ordered By: Dr. Barcenas on 09-08-2022 Hemoglobin (Bld) [Mass/Vol] 13.4 g/dL 12.0-15.0 [facility] Blood lymphocytes/100 leukoc ytesOrdered By: Dr. Barcenas on 09-08-2022 Lymphocytes/100 WBC (Bld) 28.5 % 19-41 [facility] Blood monocytes/100 leukocyt esOrdered By: Dr. Barcenas on 09-08-2022 Monocytes/100 WBC (Bld) 11.1 % 0-10 [facility] Blood platelet mean volumeOr dered By: Dr. Barcenas on 09-08-2022 Platelet mean volume (Bld) [Entitic vol] 10.7 fL 6.2-12.0 [facility] Determination of erythrocyte mean corpuscular volume (MCV)Ordered By: Dr. Barcenas on 09-08-2022 MCV (RBC) [Entitic vol] 92.4 fL 81-99 [facility] Hematocrit Auto (Bld) [Volum e fraction]Ordered By: Dr. Barcenas on 09-08-2022 Hematocrit (Bld) [Volume fraction] 41.4 % 37-47 [facility] INR in Blood by Coagulation assayOrdered By: Dr. Barcenas on 09-08-2022 INR Coag (Bld) [Relative time] 1.0 {INR} [facility] Ketones Test strip Ql (U)Ord ered By: Dr. Barcenas on 09-08-2022 Ketones Ql (U) Negative Negative [facility] Laboratory - Chemistry and C hemistry - challengeOrdered By: Dr. Barcenas on 09-08-2022 ALP [Catalytic activity/Vol] 71 U/L 45-117 [facility] ALT [Catalytic activity/Vol] 9 U/L 13-56 [facility] CO2 [Moles/Vol] 30.0 mmol/L 21.0-32.0 [facility] Globulin (S) [Mass/Vol] 3.7 g/dL 2.2-4.2 [facility] Urea nitrogen/Creatinine [Mass ratio] 17.1 mg/mg 10-20 [facility] Laboratory - CoagulationOrde red By: Dr. Barcenas on 09-08-2022 PT Coag (PPP) [Time] 13.6 s 11.7-14.9 [facility] - Hematology and Cell countsOrdered By: Dr. Barcenas on 09-08-2022 Erythrocyte distribution width (RBC) [Entitic vol] 44.8 fL 35.1-43.9 [facility] Erythrocyte distribution width (RBC) [Ratio] 13.2 % 11.6-14.6 [facility] Immature granulocytes/100 WBC (Bld) 0.300 % 0.0-0.9 [facility] Comment on above: IG% - Immature Granu locytes (promyelocytes, myelocytes and metamyelocytes) > 1% indicates that a LEFT SHIFT is Present. MCH (RBC) [Entitic mass] 29.9 pg 27.0-32.0 [facility] Nucleated RBC/100 WBC (Bld) [Ratio] 0 % 0-5 [facility] MCHC Auto (RBC) [Mass/Vol]Or dered By: Dr. Barcenas on 09-08-2022 MCHC (RBC) [Mass/Vol] 32.4 g/dL 32-36 [facility] Mucus LM Ql (Urine sed)Order ed By: Dr. Barcenas on 09-08-2022 Mucus Ql (Urine sed) 0 SEEN /hpf [facility] Nitrite Test strip Ql (U)Ord ered By: Dr. Barcenas on 09-08-2022 Nitrite Ql (U) Negative Negative [facility] No Panel InformationOrdered By: Dr. Barcenas on 09-08-2022 Estimated Creatinine Clearance Calc 31.23 ml/min [facility] Estimated GFR (MDRD) Amer 64 mL/min >60 [facility] Comment on above: GFR Calc Estimated GFR (MDRD) Non-Af Amer 53 mL/min >60 [facility] Comment on above: Non- GFR Calc Troponin I High Sensitivity 86 pg/mL 3.0-54.0 [facility] Comment on above: Please Note: New Evon t Units and Gender Specific Reference Ranges. For more information see Policy Stat Procedure [place] High Sensitivity Troponin (TNIH) and attachments. Platelets bldOrdered By: Dr. Barcenas on 09-08-2022 Platelets (Bld) [#/Vol] 294 10*3/uL 150-450 [facility] Protein Test strip Ql (U)Ord ered By: Dr. Barcenas on 09-08-2022 Protein Ql (U) Negative Negative [facility] Serum or plasma albumin viktoria urement (mass/volume)Ordered By: Dr. Barcenas on 09-08-2022 Albumin [Mass/Vol] 3.2 g/dL 3.2-5.0 [facility] Serum or plasma albumin/glob ulin mass ratioOrdered By: Dr. Barcenas on 09-08-2022 Albumin/Globulin [Mass ratio] 0.9 {ratio} 0.9-2.4 [facility] Serum or plasma calcium viktoria urement (mass/volume)Ordered By: Dr. Barcenas on 09-08-2022 Calcium [Mass/Vol] 8.8 mg/dL 8.5-10.1 [facility] Serum or plasma creatinine m easurement (mass/volume)Ordered By: Dr. Barcenas on 09-08-2022 Creatinine [Mass/Vol] 1.05 mg/dL 0.55-1.02 [facility] Comment on above: The validity of the calculated GFR & GFRAA in patients over 70 years has not been determined. Clinical correlation is essential. Serum or plasma urea nitroge n measurement (mass/volume)Ordered By: Dr. Barcenas on 09-08-2022 Urea nitrogen [Mass/Vol] 18 mg/dL 7-18 [facility] Squamous epithelial cells de tection in urine sediment by light microscopyOrdered By: Dr. Barcenas on 09-08-2022 Epithelial cells.squamous LM Ql (Urine sed) 0-5 SEEN /hpf 5-10 [facility] Thin prep Papanicolaou smear with manual screeningOrdered By: Dr. Barcenas on 09-08-2022 Thin prep Papanicolaou smear with manual screening 9 U/L 15-37 [facility] Thin prep Papanicolaou smear with manual screening 6 5-15 [facility] Urine blood detectionOrdered By: Dr. Barcenas on 09-08-2022 RBC Ql (U) Negative Negative [facility] RBC Ql (U) 0 SEEN /hpf 0-5 [facility] Urine clarityOrdered By: Dr. Barcenas on 09-08-2022 Clarity (U) Clear Clear [facility] Urine color determinationOrd ered By: Dr. Barcenas on 09-08-2022 Color (U) Yellow Yellow [facility] Urine glucose detectionOrder ed By: Dr. Barcenas on 09-08-2022 Glucose Ql (U) Normal mg/dl Normal [facility] Urine leukocyte esterase det ection by dipstickOrdered By: Dr. Barcenas on 09-08-2022 Leukocyte esterase Test strip Ql (U) Negative Negative [facility] Urine pHOrdered By: Dr. Moody delgado on 09-08-2022 pH (U) 6.5 [pH] 5.0 - 8.0 [facility] Urine sediment bacteria coun t by microscopy (number/high power field)Ordered By: Dr. Barcenas on 09-08-2022 Bacteria LM.HPF (Urine sed) [#/Area] 0 /[HPF] None Seen [facility] Urine specific gravity measu rementOrdered By: Dr. Barcenas on 09-08-2022 Specific gravity (U) [Rel density] 1.010 1.002-1.030 [facility] Urobilinogen Auto test strip Ql (U)Ordered By: Dr. Barcenas on 09-08-2022 Urobilinogen Ql (U) Normal mg/dl Normal [facility] Absolute lymphocyte countOrd ered By: Dr. Doran on 09-05-2022 Lymphocytes Auto (Unsp spec) [#/Vol] 1.27 10*3/uL 0.83-4.51 [facility] Basophil percentageOrdered B y: Dr. Doran on 09-05-2022 Basophils/100 WBC (Bld) 0.4 % 0-1 [facility] Chloride [Moles/Vol] 106 mmol/L 98-107 [facility] Eosinophils/100 WBC (Bld) 1.0 % 0-5 [facility] Glucose [Mass/Vol] 202 mg/dL 74-106 [facility] Comment on above: Glucose result great er than or equal to 200 mg/dLsuggests DIABETES MELLITUS per A.D.A. criteria. Neutrophils (Bld) [#/Vol] 8.3 10*3/uL 2.0-7.7 [facility] Neutrophils/100 WBC (Bld) 79.7 % 47-70 [facility] Potassium [Moles/Vol] 3.7 mmol/L 3.5-5.1 [facility] Sodium [Moles/Vol] 139 mmol/L 136-145 [facility] WBC (Bld) [#/Vol] 10.4 10*3/uL 4.4-11.0 [facility] Blood erythrocytes count (nu mber/volume)Ordered By: Dr. Doran on 09-05-2022 RBC (Bld) [#/Vol] 4.72 10*6/uL 4.2-5.4 [facility] Blood hemoglobin measurement (mass/volume)Ordered By: Dr. Doran on 09-05-2022 Hemoglobin (Bld) [Mass/Vol] 14.1 g/dL 12.0-15.0 [facility] Blood lymphocytes/100 leukoc ytesOrdered By: Dr. Doran on 09-05-2022 Lymphocytes/100 WBC (Bld) 12.3 % 19-41 [facility] Blood monocytes/100 leukocyt esOrdered By: Dr. Doran on 09-05-2022 Monocytes/100 WBC (Bld) 6.3 % 0-10 [facility] Blood platelet mean volumeOr dered By: Dr. Doran on 09-05-2022 Platelet mean volume (Bld) [Entitic vol] 11.2 fL 6.2-12.0 [facility] Determination of erythrocyte mean corpuscular volume (MCV)Ordered By: Dr. Doran on 09-05-2022 MCV (RBC) [Entitic vol] 93.9 fL 81-99 [facility] Hematocrit Auto (Bld) [Volum e fraction]Ordered By: Dr. Doran on 09-05-2022 Hematocrit (Bld) [Volume fraction] 44.3 % 37-47 [facility] INR in Blood by Coagulation assayOrdered By: Dr. Doran on 09-05-2022 INR Coag (Bld) [Relative time] 1.1 {INR} [facility] Laboratory - Chemistry and C hemistry - challengeOrdered By: Dr. Doran on 09-05-2022 CO2 [Moles/Vol] 24.0 mmol/L 21.0-32.0 [facility] Urea nitrogen/Creatinine [Mass ratio] 18.3 mg/mg 10-20 [facility] Laboratory - CoagulationOrde red By: Dr. Doran on 09-05-2022 PT Coag (PPP) [Time] 13.8 s 11.7-14.9 [facility] Laboratory - Hematology and Cell countsOrdered By: Dr. Doran on 09-05-2022 Erythrocyte distribution width (RBC) [Entitic vol] 45.5 fL 35.1-43.9 [facility] Erythrocyte distribution width (RBC) [Ratio] 13.2 % 11.6-14.6 [facility] Immature granulocytes/100 WBC (Bld) 0.300 % 0.0-0.9 [facility] Comment on above: IG% - Immature Granu locytes (promyelocytes, myelocytes and metamyelocytes) > 1% indicates that a LEFT SHIFT is Present. MCH (RBC) [Entitic mass] 29.9 pg 27.0-32.0 [facility] Nucleated RBC/100 WBC (Bld) [Ratio] 0 % 0-5 [facility] MCHC Auto (RBC) [Mass/Vol]Or dered By: Dr. Doran on 09-05-2022 MCHC (RBC) [Mass/Vol] 31.8 g/dL 32-36 [facility] No Panel InformationOrdered By: Dr. Doran on 09-05-2022 Estimated GFR (MDRD) Amer 61 mL/min >60 [facility] Comment on above: GFR Calc Estimated GFR (MDRD) Non-Af Amer 50 mL/min >60 [facility] Comment on above: Non- GFR Calc Thyroid Stimulating Hormone (TSH) 2.84 uIU/mL 0.358-3.74 [facility] Platelets bldOrdered By: Dr. Doran on 09-05-2022 Platelets (Bld) [#/Vol] 311 10*3/uL 150-450 [facility] Serum or plasma calcium viktoria urement (mass/volume)Ordered By: Dr. Doran on 09-05-2022 Calcium [Mass/Vol] 8.8 mg/dL 8.5-10.1 [facility] Serum or plasma creatinine m easurement (mass/volume)Ordered By: Dr. Doran on 09-05-2022 Creatinine [Mass/Vol] 1.09 mg/dL 0.55-1.02 [facility] Comment on above: The validity of the calculated GFR & GFRAA in patients over 70 years has not been determined. Clinical correlation is essential. Serum or plasma urea nitroge n measurement (mass/volume)Ordered By: Dr. Doran on 09-05-2022 Urea nitrogen [Mass/Vol] 20 mg/dL 7-18 [facility] Thin prep Papanicolaou smear with manual screeningOrdered By: Dr. Doran on 09-05-2022 Thin prep Papanicolaou smear with manual screening 9 5-15 [facility] Absolute lymphocyte countOrd ered By: Dr. Doran on 08-08-2022 Lymphocytes Auto (Unsp spec) [#/Vol] 1.97 10*3/uL 0.83-4.51 [facility] Basophil percentageOrdered B y: Dr. Doran on 08-08-2022 Basophils/100 WBC (Bld) 0.5 % 0-1 [facility] Chloride [Moles/Vol] 105 mmol/L 98-107 [facility] Eosinophils/100 WBC (Bld) 3.2 % 0-5 [facility] Glucose [Mass/Vol] 147 mg/dL 74-106 [facility] Comment on above: Fasting Glucose resu lt greater than or equal to 126 mg/dL suggests DIABETES MELLITUS per A.D.A. criteria. Neutrophils (Bld) [#/Vol] 4.6 10*3/uL 2.0-7.7 [facility] Neutrophils/100 WBC (Bld) 60.9 % 47-70 [facility] Potassium [Moles/Vol] 4.9 mmol/L 3.5-5.1 [facility] Sodium [Moles/Vol] 140 mmol/L 136-145 [facility] WBC (Bld) [#/Vol] 7.5 10*3/uL 4.4-11.0 [facility] Blood erythrocytes count (nu mber/volume)Ordered By: Dr. Doran on 08-08-2022 RBC (Bld) [#/Vol] 4.73 10*6/uL 4.2-5.4 [facility] Blood hemoglobin measurement (mass/volume)Ordered By: Dr. Doran on 08-08-2022 Hemoglobin (Bld) [Mass/Vol] 14.0 g/dL 12.0-15.0 [facility] Blood lymphocytes/100 leukoc ytesOrdered By: Dr. Doran on 08-08-2022 Lymphocytes/100 WBC (Bld) 26.2 % 19-41 [facility] Blood monocytes/100 leukocyt esOrdered By: Dr. Doran on 08-08-2022 Monocytes/100 WBC (Bld) 8.8 % 0-10 [facility] Blood platelet mean volumeOr dered By: Dr. Doran on 08-08-2022 Platelet mean volume (Bld) [Entitic vol] 10.9 fL 6.2-12.0 [facility] Determination of erythrocyte mean corpuscular volume (MCV)Ordered By: Dr. Doran on 08-08-2022 MCV (RBC) [Entitic vol] 94.1 fL 81-99 [facility] Hematocrit Auto (Bld) [Volum e fraction]Ordered By: Dr. Doran on 08-08-2022 Hematocrit (Bld) [Volume fraction] 44.5 % 37-47 [facility] Laboratory - Chemistry and C hemistry - challengeOrdered By: Dr. Doran on 08-08-2022 CO2 [Moles/Vol] 29.0 mmol/L 21.0-32.0 [facility] Cobalamin (Vitamin B12) [Mass/Vol] 853 pg/mL 211-911 [facility] Urea nitrogen/Creatinine [Mass ratio] 18.3 mg/mg 10-20 [facility] Laboratory - Hematology and Cell countsOrdered By: Dr. Doran on 08-08-2022 Erythrocyte distribution width (RBC) [Entitic vol] 45.5 fL 35.1-43.9 [facility] Erythrocyte distribution width (RBC) [Ratio] 13.2 % 11.6-14.6 [facility] Immature granulocytes/100 WBC (Bld) 0.400 % 0.0-0.9 [facility] Comment on above: IG% - Immature Granu locytes (promyelocytes, myelocytes and metamyelocytes) > 1% indicates that a LEFT SHIFT is Present. MCH (RBC) [Entitic mass] 29.6 pg 27.0-32.0 [facility] Nucleated RBC/100 WBC (Bld) [Ratio] 0 % 0-5 [facility] MCHC Auto (RBC) [Mass/Vol]Or dered By: Dr. Doran on 08-08-2022 MCHC (RBC) [Mass/Vol] 31.5 g/dL 32-36 [facility] No Panel InformationOrdered By: Dr. Doran on 08-08-2022 Estimated GFR (MDRD) Amer 57 mL/min >60 [facility] Comment on above: GFR Calc Estimated GFR (MDRD) Non-Af Amer 47 mL/min >60 [facility] Comment on above: Non- GFR Calc Vitamin D 25-Hydroxy 35.5 ng/mL [facility] Comment on above: Vitamin D 25(OH) Sta tus Range Deficiency <20 ng/mL (50nmol/L) Insufficiency 20 - 30 ng/mL (50 - 75 nmol/L) Sufficiency 30 - 100 ng/mL (75 - 250 nmol/L) Toxicity >100 ng/mL (>250 nmol/L) Platelets bldOrdered By: Dr. Doran on 08-08-2022 Platelets (Bld) [#/Vol] 365 10*3/uL 150-450 [facility] [facility] Serum or plasma calcium viktoria urement (mass/volume)Ordered By: Dr. Doran on 08-08-2022 Calcium [Mass/Vol] 9.2 mg/dL 8.5-10.1 [facility] Serum or plasma creatinine m easurement (mass/volume)Ordered By: Dr. Doran on 08-08-2022 Creatinine [Mass/Vol] 1.15 mg/dL 0.55-1.02 [facility] Comment on above: The validity of the calculated GFR & GFRAA in patients over 70 years has not been determined. Clinical correlation is essential. Serum or plasma ferritin rich surement (mass/volume)Ordered By: Dr. Doran on 08-08-2022 Ferritin [Mass/Vol] 83 ng/mL 8-252 [facility] Serum or plasma urea nitroge n measurement (mass/volume)Ordered By: Dr. Doran on 08-08-2022 Urea nitrogen [Mass/Vol] 21 mg/dL 7-18 [facility] Thin prep Papanicolaou smear with manual screeningOrdered By: Dr. Doran on 08-08-2022 Thin prep Papanicolaou smear with manual screening 6 5-15 [facility] Absolute lymphocyte countOrd ered By: Dr. Doran on 06-26-2022 Lymphocytes Auto (Unsp spec) [#/Vol] 2.42 10*3/uL 0.83-4.51 [facility] Basophil percentageOrdered B y: Dr. Doran on 06-26-2022 Basophils/100 WBC (Bld) 0.5 % 0-1 [facility] Bilirubin [Mass/Vol] 0.40 mg/dL 0.20-1.00 [facility] Comment on above: For patients on eltr ombopag therapy, use of Dimension [place] TBIL is not recommended. Chloride [Moles/Vol] 106 mmol/L 98-107 [facility] Cholesterol [Mass/Vol] 163 mg/dL <200 [facility] Comment on above: <200 mg/dL Desirable 200-240 mg/dL Borderline >240 mg/dL High Risk Eosinophils/100 WBC (Bld) 4.2 % 0-5 [facility] Glucose [Mass/Vol] 142 mg/dL 74-106 [facility] Comment on above: Fasting Glucose resu lt greater than or equal to 126 mg/dL suggests DIABETES MELLITUS per A.D.A. criteria. Neutrophils (Bld) [#/Vol] 3.9 10*3/uL 2.0-7.7 [facility] Neutrophils/100 WBC (Bld) 53.1 % 47-70 [facility] Potassium [Moles/Vol] 4.3 mmol/L 3.5-5.1 [facility] Protein [Mass/Vol] 6.9 g/dL 6.4-8.2 [facility] Sodium [Moles/Vol] 139 mmol/L 136-145 [facility] Triglyceride [Mass/Vol] 178 mg/dL <199 [facility] Comment on above: The drugs N-Acetylcy steine and Metamizole may falsely depress this assay.Serum Triglycerides Reference Interval Normal <150 mg/dL Borderline high 150 - 199 mg/dL High 200 - 499 mg/dL Very High > or = 500 mg/dL WBC (Bld) [#/Vol] 7.4 10*3/uL 4.4-11.0 [facility] Blood erythrocytes count (nu mber/volume)Ordered By: Dr. Doran on 06-26-2022 RBC (Bld) [#/Vol] 4.51 10*6/uL 4.2-5.4 [facility] Blood hemoglobin measurement (mass/volume)Ordered By: Dr. Doran on 06-26-2022 Hemoglobin (Bld) [Mass/Vol] 13.5 g/dL 12.0-15.0 [facility] Blood lymphocytes/100 leukoc ytesOrdered By: Dr. Doran on 06-26-2022 Lymphocytes/100 WBC (Bld) 32.9 % 19-41 [facility] Blood monocytes/100 leukocyt esOrdered By: Dr. Doran on 06-26-2022 Monocytes/100 WBC (Bld) 9.0 % 0-10 [facility] Blood platelet mean volumeOr dered By: Dr. Doran on 06-26-2022 Platelet mean volume (Bld) [Entitic vol] 10.2 fL 6.2-12.0 [facility] Determination of erythrocyte mean corpuscular volume (MCV)Ordered By: Dr. Doran on 06-26-2022 MCV (RBC) [Entitic vol] 92.5 fL 81-99 [facility] Hematocrit Auto (Bld) [Volum e fraction]Ordered By: Dr. Doran on 06-26-2022 Hematocrit (Bld) [Volume fraction] 41.7 % 37-47 [facility] Laboratory - Chemistry and C hemistry - challengeOrdered By: Dr. Doran on 06-26-2022 ALP [Catalytic activity/Vol] 69 U/L 45-117 [facility] ALT [Catalytic activity/Vol] 13 U/L 13-56 [facility] CO2 [Moles/Vol] 29.0 mmol/L 21.0-32.0 [facility] Globulin (S) [Mass/Vol] 3.7 g/dL 2.2-4.2 [facility] Urea nitrogen/Creatinine [Mass ratio] 18.0 mg/mg 10-20 [facility] Laboratory - Hematology and Cell countsOrdered By: Dr. Doran on 06-26-2022 Erythrocyte distribution width (RBC) [Entitic vol] 43.9 fL 35.1-43.9 [facility] Erythrocyte distribution width (RBC) [Ratio] 12.9 % 11.6-14.6 [facility] Immature granulocytes/100 WBC (Bld) 0.300 % 0.0-0.9 [facility] Comment on above: IG% - Immature Granu locytes (promyelocytes, myelocytes and metamyelocytes) > 1% indicates that a LEFT SHIFT is Present. MCH (RBC) [Entitic mass] 29.9 pg 27.0-32.0 [facility] Nucleated RBC/100 WBC (Bld) [Ratio] 0 % 0-5 [facility] MCHC Auto (RBC) [Mass/Vol]Or dered By: Dr. Doran on 06-26-2022 MCHC (RBC) [Mass/Vol] 32.4 g/dL 32-36 [facility] No Panel InformationOrdered By: Dr. Doran on 06-26-2022 Estimated GFR (MDRD) Amer 60 mL/min >60 [facility] Comment on above: GFR Calc Estimated GFR (MDRD) Non-Af Amer 49 mL/min >60 [facility] Comment on above: Non- GFR Calc Platelets bldOrdered By: Dr. Doran on 06-26-2022 Platelets (Bld) [#/Vol] 314 10*3/uL 150-450 [facility] Serum or plasma albumin viktoria urement (mass/volume)Ordered By: Dr. Doran on 06-26-2022 Albumin [Mass/Vol] 3.2 g/dL 3.2-5.0 [facility] Serum or plasma albumin/glob ulin mass ratioOrdered By: Dr. Doran on 06-26-2022 Albumin/Globulin [Mass ratio] 0.9 {ratio} 0.9-2.4 [facility] Serum or plasma calcium viktoria urement (mass/volume)Ordered By: Dr. Doran on 06-26-2022 Calcium [Mass/Vol] 8.8 mg/dL 8.5-10.1 [facility] Serum or plasma cholesterol in HDL measurement (mass/volume)Ordered By: Dr. Doran on 06-26-2022 Cholesterol in HDL [Mass/Vol] 47 mg/dL >40 [facility] Comment on above: The drugs N-Acetylcy steine and Metamizole may falsely depress this assay. Reference Range HDL <40 mg/dL Low HDL Cholesterol HDL >or= 60 mg/dL High HDL Cholesterol Serum or plasma cholesterol in VLDL measurement (mass/volume)Ordered By: Dr. Doran on 06-26-2022 Cholesterol in VLDL [Mass/Vol] 36 mg/dL 5-40 [facility] Serum or plasma creatinine m easurement (mass/volume)Ordered By: Dr. Doran on 06-26-2022 Creatinine [Mass/Vol] 1.11 mg/dL 0.55-1.02 [facility] Comment on above: The validity of the calculated GFR & GFRAA in patients over 70 years has not been determined. Clinical correlation is essential. Serum or plasma low density lipoprotein (LDL) cholesterol measurement (mass/volume)Ordered By: Dr. Doran on 06-26-2022 Cholesterol in LDL [Mass/Vol] 80 mg/dL 0-130 [facility] Serum or plasma urea nitroge n measurement (mass/volume)Ordered By: Dr. Doran on 06-26-2022 Urea nitrogen [Mass/Vol] 20 mg/dL 7-18 [facility] Thin prep Papanicolaou smear with manual screeningOrdered By: Dr. Doran on 06-26-2022 Thin prep Papanicolaou smear with manual screening 15 U/L 15-37 [facility] Thin prep Papanicolaou smear with manual screening 4 5-15 [facility] Absolute lymphocyte countOrd ered By: Reese Shankar on 02-11-2022 Lymphocytes Auto (Unsp spec) [#/Vol] 1.50 10*3/uL 0.83-4.51 [facility] Basophil percentageOrdered B y: Reese Shankar on 02-11-2022 Basophils/100 WBC (Bld) 0.4 % 0-1 [facility] Chloride [Moles/Vol] 102 mmol/L 98-107 [facility] Eosinophils/100 WBC (Bld) 1.7 % 0-5 [facility] Glucose [Mass/Vol] 153 mg/dL 74-106 [facility] Comment on above: Fasting Glucose resu lt greater than or equal to 126 mg/dL suggests DIABETES MELLITUS per A.D.A. criteria. Neutrophils (Bld) [#/Vol] 10.0 10*3/uL 2.0-7.7 [facility] Neutrophils/100 WBC (Bld) 79.1 % 47-70 [facility] Potassium [Moles/Vol] 3.9 mmol/L 3.5-5.1 [facility] Sodium [Moles/Vol] 138 mmol/L 136-145 [facility] WBC (Bld) [#/Vol] 12.7 10*3/uL 4.4-11.0 [facility] Blood erythrocytes count (nu mber/volume)Ordered By: Reese Shankar on 02-11-2022 RBC (Bld) [#/Vol] 4.24 10*6/uL 4.2-5.4 [facility] Blood hemoglobin measurement (mass/volume)Ordered By: Reese Shankar on 02-11-2022 Hemoglobin (Bld) [Mass/Vol] 12.8 g/dL 12.0-15.0 [facility] Blood lymphocytes/100 leukoc ytesOrdered By: Reese Shankar on 02-11-2022 Lymphocytes/100 WBC (Bld) 11.8 % 19-41 [facility] Blood monocytes/100 leukocyt esOrdered By: Reese Shankar on 02-11-2022 Monocytes/100 WBC (Bld) 6.7 % 0-10 [facility] Blood platelet mean volumeOr dered By: Reese Shankar on 02-11-2022 Platelet mean volume (Bld) [Entitic vol] 11.0 fL 6.2-12.0 [facility] Determination of erythrocyte mean corpuscular volume (MCV)Ordered By: Reese Shankar on 02-11-2022 MCV (RBC) [Entitic vol] 91.7 fL 81-99 [facility] Hematocrit Auto (Bld) [Volum e fraction]Ordered By: Reese Shankar on 02-11-2022 Hematocrit (Bld) [Volume fraction] 38.9 % 37-47 [facility] INR in Blood by Coagulation assayOrdered By: Reese Shankar on 02-11-2022 INR Coag (Bld) [Relative time] 2.7 {INR} [facility] Laboratory - Chemistry and C hemistry - challengeOrdered By: Reese Shankar on 02-11-2022 CO2 [Moles/Vol] 26.0 mmol/L 21.0-32.0 [facility] Magnesium [Mass/Vol] 2.2 mg/dL 1.6-2.6 [facility] Urea nitrogen/Creatinine [Mass ratio] 18.5 mg/mg 10-20 [facility] Laboratory - CoagulationOrde red By: Reese Shankar on 02-11-2022 PT Coag (PPP) [Time] 28.0 s 11.7-14.9 [facility] Laboratory - Hematology and Cell countsOrdered By: Reese Shankar on 02-11-2022 Erythrocyte distribution width (RBC) [Entitic vol] 43.5 fL 35.1-43.9 [facility] Erythrocyte distribution width (RBC) [Ratio] 12.9 % 11.6-14.6 [facility] Immature granulocytes/100 WBC (Bld) 0.300 % 0.0-0.9 [facility] Comment on above: IG% - Immature Granu locytes (promyelocytes, myelocytes and metamyelocytes) > 1% indicates that a LEFT SHIFT is Present. MCH (RBC) [Entitic mass] 30.2 pg 27.0-32.0 [facility] Nucleated RBC/100 WBC (Bld) [Ratio] 0 % 0-5 [facility] MCHC Auto (RBC) [Mass/Vol]Or dered By: Reese Shankar on 02-11-2022 MCHC (RBC) [Mass/Vol] 32.9 g/dL 32-36 [facility] No Panel InformationOrdered By: Reese Shankar on 02-11-2022 Estimated Creatinine Clearance Calc 19.31 ml/min [facility] Estimated GFR (MDRD) Amer 36 mL/min >60 [facility] Comment on above: GFR Calc Estimated GFR (MDRD) Non-Af Amer 30 mL/min >60 [facility] Comment on above: Non- GFR Calc Troponin I High Sensitivity 13 pg/mL 3.0-54.0 [facility] Comment on above: Please Note: New Evon t Units and Gender Specific Reference Ranges. For more information see Policy Stat Procedure [place] High Sensitivity Troponin (TNIH) and attachments. Platelets bldOrdered By: Dontae Shankar on 02-11-2022 Platelets (Bld) [#/Vol] 286 10*3/uL 150-450 [facility] Serum or plasma calcium viktoria urement (mass/volume)Ordered By: Reese Shankar on 02-11-2022 Calcium [Mass/Vol] 9.1 mg/dL 8.5-10.1 [facility] Serum or plasma creatinine m easurement (mass/volume)Ordered By: Reese Shankar on 02-11-2022 Creatinine [Mass/Vol] 1.73 mg/dL 0.55-1.02 [facility] Comment on above: The validity of the calculated GFR & GFRAA in patients over 70 years has not been determined. Clinical correlation is essential. Serum or plasma urea nitroge n measurement (mass/volume)Ordered By: Reese Shankar on 02-11-2022 Urea nitrogen [Mass/Vol] 32 mg/dL 7-18 [facility] Thin prep Papanicolaou smear with manual screeningOrdered By: Reese Shankar on 02-11-2022 Thin prep Papanicolaou smear with manual screening 10 5-15 [facility] CNPNon 10-14-2019 CNPN Telephone (AGCARDPOB ) EZRA GONZALEZ ([id number]) 1935 F Date Time Provider Department 10/14/19 [...] artery stent placement- 2006 [Z95*11/14/2015 Atheros[place] coronary artery of na*11/14/2015 Asymptomatic cholelithiasis [K80.20] [...] Encounter Status:Closed by ELVER ACOSTA on 10/14/19 [facility] SUZITOUTREAJourdan 10-12-2019 CNPTOUTREA Patient Outreach ([facility]) EZRA GONZALEZ ([id number]) 1935 F Date Time Provider Department 10/12/19 SWATHI CRUZ) [facility] During your visit today, we recorded the following information about you: Swathi Cruz LPN, LEE 10/12/2019 10:48 AM Signed ED Follow Up: Patient discharged from [facility] ED on 10/11/2019 for Fall, rib fracture [...] Visit: Transition Of Care [4074] Cmt: ED [facility] 10/11/2019 (Pt. has new pcp) Reason For [...] artery stent placement- 2006 [Z95*11/14/2015 Atherosclerosis [place] coronary artery of na*11/14/2015 Asymptomatic cholelithiasis [K80.20] [...] Status:Closed by SWATHI CRUZ LPN on 10/12/19 [facility] OBSOLETEon 10-12-2019 OBSOLETE Refill ([facility]) LISAEZRA ([id number]) 1935 F Date Time Provider Department 10/12/19 JO PEREZ During your visit today, we recorded the following information about you: Anne Marie Morrison 10/12/2019 7:50 AM Signed Pharmacy faxed requesting the following refill. Pending Prescriptions Disp Refills FUROSEMIDE 20 MG TABLET 90 tablet 0 Sig: TAKE ONE TABLET BY MOUTH EVERY DAY SHAHEEN: Yes Last refill: 01/21/2019 Patient last appointment: 09/22/2019 Patient next appointment: Visit date not found Patient Phone numbers: [phone] (home) Request is for script(s) to be [...] artery stent placement- 2006 [Z95*11/14/2015 Atherosclerosis [place] coronary artery of na*11/14/2015 Asymptomatic cholelithiasis [K80.20] [...] Status:Closed by LYNN BENEDICT LPN on 11/11/19 [facility] PROGRESSon 10-12-2019 PROGRESS HNO ID: [id number] Author: Swathi Cruz LPN Service: ? Author Type: LICENSED NURSE Type: Progress Notes Filed: 10/12/2019 10:48 AM Note Text: ED Follow Up: Patient discharged from [facility] ED on 10/11/2019 for Fall, rib fracture Outreach # 1, Contact Made. Patient was called at this time. Patient verified by name and . Patient stated she has a new PCP Dr. Sada Doran who she will follow up with. Swathi Cruz LPN 10/12/2019 10:45 AM [facility] CNPMari 10-06-2019 JAROD Telephone (AGINTMAC) EZRA GONZALEZ ([id number]) 1935 F Date Time Provider Department 10/06/19 ESTEFANIA CEVALLOS During your visit today, we recorded the following information about you: Estefania Cevallos, Angela 10/06/2019 1:08 PM Signed Referred by Dr. [...] 12/30/16 +++Patient gets lab draw at [facility] in [place] [phone]+++ PT INR Date Value Ref Range Status [...] (HCC) [I48.91] Order(s):PROTHROMBIN TIME/PT [SQPT] Order #: [id number] Prescriptions as of 10/06/2019 Sig: METOPROLOL SUCCINATE [...] artery stent placement- 2006 [Z95*11/14/2015 Atherosclerosis [place] coronary artery of na*11/14/2015 Asymptomatic cholelithiasis [K80.20] [...] right [M75.101, *02/04/2019 Encounter Status:Closed by BHAKTI (PHARMACIST)DIANNIE on 10/06/19 [facility] Bao 09-22-2019 CNPN Telephone ([facility]) EZRA GONZALEZ ([id number]) 1935 F Date Time Provider Department 09/22/19 JO PEREZ [facility] During your visit today, we recorded the following information about you: Maryanne Gomez MA 09/22/2019 10:38 AM Signed Patient is aware that you are going to be leaving the practice. She states she recently moved down to [place] and wants to find a physician closer to her Is there anyone that you recommend Maryanne Gomez MA 09/22/2019 10:37 AM Jo Perez MD 09/22/2019 12:[address] [facility]er at [facility] Alicia Park LPN 09/22/2019 1:21 PM [...] Fully Assessed Reason for Visit: Patient Question [3599] Cmt: [facility] in [facility] Prescriptions as of 09/22/2019 Sig: METOPROLOL [...] artery stent placement- 2006 [Z95*11/14/2015 Atherosclerosis [place] coronary artery of na*11/14/2015 Asymptomatic cholelithiasis [K80.20] [...] Encounter Status:Closed by ALICIA PARK on 09/22/19 [facility] CNPTOUTREACHon 09-22-2019 [facility] Patient Outreach ([facility]) EZRA GONZALEZ ([id number]) 1935 F Date Time Provider Department 09/22/19 MARYANNE GOMEZ) [facility] During your visit today, we recorded the following information about you: Maryanne Gomez MA 09/22/2019 10:34 AM Signed HIGH RISK CHRONIC DISEASE MONITORING - [facility] Provider Action/FYI: Patient doing well Contact made with patient: Yes Hi my name is Maryanne Gomez MA and I am calling from the [facility] on behalf of your PCP. [...] like to speak with a social work wall steamer to help give you support for any [...] artery stent placement- 2006 [Z95*11/14/2015 Atherosclerosis [place] coronary artery of na*11/14/2015 Asymptomatic cholelithiasis [K80.20] [...] Encounter Status:Closed by MARYANNE GOMEZ on 09/22/19 [facility] PROGRESSon 09-22-2019 PROGRESS HNO ID: [id number] Author: Maryanne Gomez Service: ? Author Type: Vp Scientific Type: Progress Notes Filed: 09/22/2019 10:34 AM Note Text: HIGH RISK CHRONIC DISEASE MONITORING - [facility] Provider Action/FYI: Patient doing well Contact made with patient: Yes Hi my name is Maryanne Gomez MA and I am calling from the [facility] on behalf of your PCP. [...] like to speak with a social work wall steamer to help give you support for any [...] Gomez MA 09/22/2019 10:33 AM Normal [facility] CNPTOUTREACHochastity 09-21-2019 [facility] Patient Outreach ([facility]) EZRA GONZALEZ ([id number]) 1935 F Date Time Provider Department 09/21/19 JO PEREZ [facility] During your visit today, we recorded the following information about you: Alicia Park LPN 09/21/2019 10:43 AM Signed HIGH RISK CHRONIC DISEASE MONITORING - [facility] Provider Action/FYI: Contact made with patient: No - Left 1st message - Hi my name is Alicia Park LPN and I am calling from the [facility] on behalf of your PCP, [...] artery stent placement- 2006 [Z95*11/14/2015 Atherosclerosis [place] coronary artery of na*11/14/2015 Asymptomatic cholelithiasis [K80.20] [...] Encounter Status:Closed by ALICIA PARK on 09/21/19 [facility] PROGRESSon 09-21-2019 PROGRESS HNO ID: [id number] Author: Alicia Bush) Vivian Service: ? Author Type: LICENSED NURSE Type: Progress Notes Filed: 09/21/2019 10:43 AM Note Text: HIGH RISK CHRONIC DISEASE MONITORING - [facility] Provider Action/FYI: Contact made with patient: No - Left 1st message - Hi my name is Alicia Park LPN and I am calling from the [facility] on behalf of your PCP, [...] Track Pt Outreach. End outreach.) Outreach ended [facility] CNPMari 09-02-2019 SUZIN Telephone (SARITHAMAC) EZRA GONZALEZ ([id number]) 1935 F Date Time Provider Department 09/02/19 ESTEFANIA CEVALLOS During your visit today, we recorded the following information about you: Estefania Cevallos PharmD 09/02/2019 11:16 AM Signed Please check with patient to see if she has been to the lab recently for an INR. We have not received an INR since June. Angela Collins LPN, RADIOLOGY THERAPIST 09/02/2019 11:20 AM Signed Called and spoke [...] Date: 12/30/16 +++Patient gets lab draw at [facility] in [place] [phone]+++ PT INR Date Value Ref Range Status [...] Patient will have next INR drawn at [facility] in [place] next month. Order placed. Estefania [...] (HCC) [I48.91] Order(s):PROTHROMBIN TIME/PT [SQPT] Order #: [id number] PROTHROMBIN TIME/PT [SQPT] Order #: [id number] STANDING Prescriptions as of 09/02/2019 Sig: METOPROLOL [...] artery stent placement- 2006 [Z95*11/14/2015 Atherosclerosis [place] coronary artery of na*11/14/2015 Asymptomatic cholelithiasis [K80.20] [...] right [M75.101, *02/04/2019 Encounter Status:Closed by BHAKTI (PHARMACIST)ESTEFANAI on 09/03/19 [facility] CNPTOUTREACHon 08-12-2019 CNPTOUTREA Patient Outreach (AGMPC) EZRA GONZALEZ ([id number]) 1935 F Date Time Provider Department 08/12/19 MARYANNE GOMEZ) [facility] During your visit today, we recorded the following information about you: Maryanne Gomez MA 08/12/2019 9:39 AM Signed HIGH RISK CHRONIC DISEASE MONITORING - [facility] Provider Action/FYI: Left 2nd message, will add patient to schedule for a month Contact made with patient: No, Left 2nd message - Hi my name is Maryanne Gomez MA and I am calling from the [facility] on behalf of your PCP, [...] artery stent placement- 2006 [Z95*11/14/2015 Atherosclerosis [place] coronary artery of na*11/14/2015 Asymptomatic cholelithiasis [K80.20] [...] Encounter Status:Closed by MARYANNE GOMEZ on 08/12/19 [facility] PROGRESSon 08-12-2019 PROGRESS HNO ID: [id number] Author: Maryanne Gomez Service: ? Author Type: Vp Scientific Type: Progress Notes Filed: 08/12/2019 9:39 AM Note Text: HIGH RISK CHRONIC DISEASE MONITORING - [facility] Provider Action/FYI: Left 2nd message, will add patient to schedule for a month Contact made with patient: No, Left 2nd message - Hi my name is Maryanne Gomez MA and I am calling from the [facility] on behalf of your PCP, [...] Gomez MA 08/12/2019 9:38 AM Normal [facility] CNPTOUTREACHon 08-11-2019 [facility] ([facility]) EZRA GONZALEZ ([id number]) 1935 F Date Time Provider Department 08/11/19 MARYANNE GOMEZ) [facility] During your visit today, we recorded the following information about you: Maryanne Gomez MA 08/11/2019 10:02 AM Signed HIGH RISK CHRONIC DISEASE MONITORING - [facility] Provider Action/FYI: Left message, will add to schedule for tomorrow Contact made with patient: No - Left 1st message - Hi my name is Maryanne Gomez MA and I am calling from the [facility] on behalf of your PCP, [...] artery stent placement- 2006 [Z95*11/14/2015 Atherosclerosis [place] coronary artery of na*11/14/2015 Asymptomatic cholelithiasis [K80.20] [...] Encounter Status:Closed by MARYANNE GOMEZ on 08/11/19 [facility] PROGRESSon 08-11-2019 PROGRESS HNO ID: [id number] Author: Maryanne Gomez Service: ? Author Type: Vp Scientific Type: Progress Notes Filed: 08/11/2019 10:02 AM Note Text: HIGH RISK CHRONIC DISEASE MONITORING - [facility] Provider Action/FYI: Left message, will add to schedule for tomorrow Contact made with patient: No - Left 1st message - Hi my name is Maryanne Gomez MA and I am calling from the [facility] on behalf of your PCP, [...] ended Maryanne Gomez MA 08/11/2019 10:01 AM [facility] OBSOLETEon 08-05-2019 OBSOLETE Refill (AGCARDPOB) LISAEZRA BOLTON ([id number]) 1935 F Date Time Provider Department 08/05/19 MICHAEL LUO During your visit today, we [...] artery stent placement- 2006 [Z95*11/14/2015 Atheros[place] coronary artery of na*11/14/2015 Asymptomatic cholelithiasis [K80.20] [...] Encounter Status:Closed by LYNETTE OROURKE on 08/05/19 [facility] CNPTOUTREACHon 08-04-2019 [facility] Outreach [facility] [facility]) EZRA GONZALEZ ([id number]) 1935 F Date Time Provider Department 08/04/19 MARYANNE GOMEZ) [facility] During your visit today, we recorded the following information about you: Maryanne Gomez MA 08/04/2019 11:03 AM Signed HIGH RISK CHRONIC DISEASE MONITORING - [facility] Provider Action/FYI: Patient has no questions or concerns at this time Contact made with patient: Yes Hi my name is Maryanne Gomez MA and I am calling from the [facility] on behalf of your PCP. [...] like to speak with a social work wall steamer to help give you support for any [...] artery stent placement- 2006 [Z95*11/14/2015 Atherosclerosis of [place] coronary artery of na*11/14/2015 Asymptomatic cholelithiasis [K80.20] [...] Encounter Status:Closed by MARYANNE GOMEZ on 08/04/19 [facility] PROGRESSon 08-04-2019 PROGRESS HNO ID: [id number] Author: Maryanne Gomez Service: ? Author Type: Vp Scientific Type: Progress Notes Filed: 08/04/2019 11:03 AM Note Text: HIGH RISK CHRONIC DISEASE MONITORING - [facility] Provider Action/FYI: Patient has no questions or concerns at this time Contact made with patient: Yes Hi my name is Maryanne Gomez MA and I am calling from the [facility] on behalf of your PCP. [...] like to speak with a social work wall steamer to help give you support for any [...] Gomez MA 08/04/2019 11:03 AM Normal [facility] OBSOLETEon 08-03-2019 OBSOLETE Refill (AGCARDPOB) LISAEZRA ([id number]) 1935 F Date Time Provider Department 08/03/19 [...] artery stent placement- 2006 [Z95*11/14/2015 Atherosclerosis of [place] coronary artery of na*11/14/2015 Asymptomatic cholelithiasis [K80.20] [...] Status:Closed by KATYA WELLS CNP on 08/03/19 [facility] CNPTOUTREACHon 07-28-2019 [facility] EZ[facility] GONZALEZ ([id number]) 1935 F Date Time Provider Department 07/28/19 MARYANNE GOMEZ) [facility] During your visit today, we recorded the following information about you: Maryanne Gomez MA 07/28/2019 3:18 PM Signed HIGH RISK CHRONIC DISEASE MONITORING - [facility] Provider Action/FYI: Patient wants to know [...] MA and I am calling from the [facility] on behalf of your PCP. 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] Order(s):HGB A1C [VTNEW6Q] Order #: [id number] FUTURE LIPID PANEL BASIC [SQLIPB] Order #: [id number] FUTURE COMP METABOLIC PANEL [SQCMP] Order #: [id number] FUTURE ALBUMIN QUANT 24H UR [SQUALBQ] Order #: [id number] FUTURE Prescriptions as of 07/28/2019 Sig: SIMVASTATIN [...] artery stent placement- 2006 [Z95*11/14/2015 Atherosclerosis of [place] coronary artery of na*11/14/2015 Asymptomatic cholelithiasis [K80.20] [...] Encounter Status:Closed by JO PEREZ on 07/28/19 [facility] OBSOLETEon 07-28-2019 OBSOLETE Refill (AGCARDHWG) EZRA GONZALEZ ([id number]) 1935 F Date Time Provider Department 07/28/19 [...] artery stent placement- 2006 [Z95*11/14/2015 Atherosclerosis of [place] coronary artery of na*11/14/2015 Asymptomatic cholelithiasis [K80.20] [...] Status:Closed by ARCELIA LOCKETT CNP on 07/28/19 [facility] PROGRESSon 07-28-2019 PROGRESS HNO ID: [id number] Author: Maryanne Gomez Service: ? Author Type: Vp Scientific Type: Progress Notes Filed: 07/28/2019 3:18 PM [...] necessary. Maryanne Gomez MA 07/28/2019 3:05 PM [facility] PROGRESS HNO ID: [id number] Author: Jo Perez Service: ? Author Type: Physician Type: Progress Notes Filed: 07/28/2019 3:18 PM Note Text: Please report her afib episode to her operator automated process (you can just route this chart to [...] get labs done prior to her visit [facility] PROGRESS HNO ID: [id number] Author: Maryanne Gomez Service: ? Author Type: Vp Scientific Type: Progress Notes Filed: 07/28/2019 3:18 PM Note Text: HIGH RISK CHRONIC DISEASE MONITORING - [facility] Provider Action/FYI: Patient wants to know [...] MA and I am calling from the [facility] on behalf of your PCP. [...] like to speak with a social work wall steamer to help give you support for any [...] Gomez MA 07/28/2019 2:21 PM Normal [facility] OBSOLETEon 07-14-2019 OBSOLETE Refill (AGMPC) EZRA GONZALEZ ([id number]) 1935 F Date Time Provider Department 07/14/19 JO PEREZ AGAdeel During your visit today, we recorded the [...] Visit date not found Patient Phone numbers: [phone] (home) Request is for script(s) to be [...] artery stent placement- 2006 [Z95*11/14/2015 Atherosclerosis of [place] coronary artery of na*11/14/2015 Asymptomatic cholelithiasis [K80.20] [...] Encounter Status:Closed by JO PEREZ on 07/14/19 [facility] OBSOLETE Refill (AGCARDPOB) EZRA GONZALEZ ([id number]) 1935 F Date Time Provider Department 07/14/19 [...] artery stent placement- 2006 [Z95*11/14/2015 Atherosclerosis of [place] coronary artery of na*11/14/2015 Asymptomatic cholelithiasis [K80.20] [...] Status:Closed by RICKEY CHAVARRIA MD on 07/14/19 [facility] 07-12-2019 CNPN Telephone ([employer]) EZRA GONZALEZ ([id number]) 1935 F Date Time Provider Department 07/12/19 [facility] AGINTTrenStar During your visit today, we recorded the [...] Date: 12/30/16 +++Patient gets lab draw at [facility] in [place] [phone]+++ PT INR Date Value Ref Range Status [...] Estefania Cevallos, PharmD Allergies As of Date: 07/12/2019 Noted Allergy [...] (HCC) [I48.91] Order(s):PROTHROMBIN TIME/PT [SQPT] Order #: [id number] Prescriptions as of 07/12/2019 Sig: LISINOPRIL 5 [...] artery stent placement- 2006 [Z95*11/14/2015 Atherosclerosis of [place] coronary artery of na*11/14/2015 Asymptomatic cholelithiasis [K80.20] [...] Encounter Status:Closed by BHAKTI (PHARMACIST)ESTEFANIA on 07/12/19 [facility] OBSOLETEon 07-05-2019 OBSOLETE Refill (AGMPC) EZRA GONZALEZ ([id number]) 1935 F Date Time Provider Department 07/05/19 [...] Patient next appointment: 07/28/2019 Patient Phone numbers: [phone] (home) Request is for script(s) to be escript to pharmacy. Robert Diaz CMA [place] 07/13/2019 11:23 AM Signed Pharmacy called to say Ranitidine was recalled and Pepcid is on backorder. Asked what we want to do as an alternative. Spoke with Dr. Perez and she said Omeprazole 20 mg once a day. Asked the pharmacy to either call the office or the patient once Pepcid is no longer on backorder per Dr. Perez. [place] 07/13/2019 11:23 AM Allergies As of Date: [...] artery stent placement- 2006 [Z95*11/14/2015 Atherosclerosis of [place] coronary artery of na*11/14/2015 Asymptomatic cholelithiasis [K80.20] [...] Status:Closed by PATITO WILSON CNP on 07/05/19 [facility] OBSOLETEon 07-01-2019 OBSOLETE Refill ([facility]) EZRA GONZALEZ ([id number]) 1935 F Date Time Provider Department 07/01/19 JO PEREZ [facility] During your visit today, we recorded the following information about you: Robert Diaz CMA 07/01/2019 9:20 AM Signed Patient called requesting the following refill. Pending Prescriptions Disp Refills RANITIDINE 150 MG TABLET 90 tablet 0 Sig: Take 1 tablet by mouth once daily. SHAHEEN: No Last refill: 03/18/2019 Patient last appointment: 06/10/2019 Patient next appointment: 07/28/2019 Patient Phone numbers: [phone] (home) Request is for script(s) to be escript to pharmacy. Robert Diaz CMA Allergies As of Date: 07/01/2019 Noted Allergy Reaction CODEINE 03/20/2015 16 - Unknown CRESTOR (ROSUVASTATIN) 03/20/2015 14 - Other: See Comments Comments: Myalgias DEMEROL (MEPERIDINE) 03/20/2015 8 - GI Upset LATEX 03/20/2015 2 - Rash LIPITOR (ATORVASTATIN) 03/20/2015 14 - Other: See Comments Comments: Myalgias Date Reviewed: 05/13/2019 Reviewed by: rCuz Sanchez - Fully Assessed Reason for Visit: [...] artery stent placement- 2006 [Z95*11/14/2015 Atherosclerosis [place] coronary artery of na*11/14/2015 Asymptomatic cholelithiasis [K80.20] [...] Encounter Status:Closed by JO PEREZ on 07/01/19 [facility] Bao 06-10-2019 CNPN Telephone ([facility]) LISAEZRA ([id number]) 1935 F Date Time Provider Department 06/10/19 [...] artery stent placement- 2006 [Z95*11/14/2015 Atherosclerosis of [place] coronary artery of na*11/14/2015 Asymptomatic cholelithiasis [K80.20] [...] Status:Closed by SWATHI CRUZ LPN on 06/10/19 [facility] 06-07-2019 CNPN Telephone ([employer]) EZRA GONZALEZ ([id number]) 1935 F Date Time Provider Department 06/07/19 [...] Date: 12/30/16 +++Patient gets lab draw at [facility] in [place] [phone]+++ PT INR Date Value Ref Range Status [...] (HCC) [I48.91] Order(s):PROTHROMBIN TIME/PT [SQPT] Order #: [id number] Prescriptions as of 06/07/2019 Sig: COQ-10 ORAL [...] artery stent placement- 2006 [Z95*11/14/2015 Atherosclerosis [place] coronary artery of na*11/14/2015 Asymptomatic cholelithiasis [K80.20] [...] Encounter Status:Closed by BHAKTI (PHARMACIST)ESTEFANIA on 06/07/19 [facility] 06-04-2019 CNPN Telephone ([facility]) EZRA GONZALEZ ([id number]) 1935 F Date Time Provider Department 06/04/19 ESTEFANIA CEVALLOS During your visit today, we recorded the following information about you: Estefania Cevallos PharmD 06/04/2019 2:30 PM Signed Patient was due to have an INR drawn at the end of May. We have not received results. Please check with patient. Estefania Cevallos, Angela Ovalles LPN, LEE 06/04/2019 3:44 PM Signed Called [...] artery stent placement- 2006 [Z95*11/14/2015 Atherosclerosis [place] coronary artery of na*11/14/2015 Asymptomatic cholelithiasis [K80.20] [...] by BHAKTI (PHARMACIST)ESTEFANIA on 06/04/19 [facility] CNOVon 05-13-2019 CNOV Office Visit (AGHWW1 ) EZRA GONZALEZ ([id number]) 1935 F Date Time Provider Department 05/13/19 4:00 PM CRUZ SANCHEZ AGHWW1 During your visit today, we recorded the following information about you: Respiration Weight Height 18/minute 82.6 kg 1.613 m Cruz Sanchez MD 05/13/2019 5:00 PM Signed HISTORY OF PRESENT ILLNESS: Ezra Gonzalez is an 83-year-old osnyx-femu-kkxkaogr female who returns for follow-up right shoulder [...] 2006 - On anticoagulant therapy - On detention drug therapy - Osteoarthritis - Peripheral venous [...] [Z98.890] Order(s):Large Joint Arthro/Inj: R subacromial bursa [TLB317] Order #: [id number] betamethasone acetate-betamethasone sodium phosphate 12 mg injection [...] artery stent placement- 2006 [Z95*11/14/2015 Atherosclerosis [place] coronary artery of na*11/14/2015 Asymptomatic cholelithiasis [K80.20] [...] Status:Closed by CRUZ SANCHEZ MD on 05/13/19 [facility] PROGRESSon 05-13-2019 PROGRESS HNO ID: [id number] Author: Cruz Sanchez Service: ? 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 Cruz Sanchez MD [facility] CNOVon 04-27-2019 [facility] Office Visit ([facility]) EZRA GONZALEZ ([id number]) 1935 F Date Time Provider Department 04/27/19 [...] coronary artery stent placement- 2006 Atherosclerosis of [place] Coronary Artery of [place] Heart Without Angina Pectoris Asymptomatic Cholelithiasis History [...] Podiatry 05/19/2015 End 05/19/15 Nirmal Bogdan Justo BALANCE ENGINEER 07/07/2017 End 07/07/17 ; Mohan Álvarez Ophthalmology 07/07/2017 End 07/07/17 Rickey Clive Bishop Cardiology 09/30/2018 End 09/30/18 ; End of Live Planning discussed including patients advanced directive wishes: Yes I am willing to follow advanced directives. Mini-Cog Patient asked to remember the following three words: Banana, [place] and Chair Visuospatial/Executiv e Functioning: Clock drawin/2 [...] No history of dysuria, frequency or incontinence PEAR PICKER: Negative for abnormal vaginal bleeding, abnormal vaginal [...] with supplements or by diet (goal of 5198-1051 mg/day - Discussed need and benefit for [...] arise. - Discussed diabetic education issues of detention diabetic complications, hypoglycemic symptoms, hyperglycemic symptoms, diet, [...] prepared fairly simply. If you were a ymef-otf-cwscijmb eater, focus on the meat more than [...] your kitchen up for success. Always have qke-oyre-fubagpkp foods on hand ready to eat. Remove [...] unspecified type [R19.7] Order(s):ADMIN OF INFLUENZA VACCINE [O1807QLH] Order #: [id number]: 1 INFLUENZA SEASONAL HIGH DOSE AGE 65+ [[id number]] Order #: [id number] metFORMIN (GLUCOPHAGE) 500 mg tabletTake 1 tablet by mouth daily with breakfast.Disp: Rfl: HGB A1C [HABRO1F] Order #: [id number] FUTURE COMP METABOLIC PANEL [SQCMP] Order #: [id number] FUTURE Prescriptions as of 04/27/2019 Sig: COQ-10 [...] artery stent placement- 2006 [Z95*11/14/2015 Atherosclerosis [place] coronary artery of na*11/14/2015 Asymptomatic cholelithiasis [K80.20] [...] prepared fairly simply. If you were a ovun-tby-vuuthasu eater, focus on the meat more than [...] your kitchen up for success. Always have aru-viio-lxwxhdum foods on hand ready to eat. Remove [...] Encounter Status:Closed by JO PEREZ on 04/27/19 [facility] PROGRESSon 04-27-2019 PROGRESS HNO ID: [id number] Author: Jo Perez Service: ? Author Type: [...] coronary artery stent placement- 2006 Atherosclerosis of [place] Coronary Artery of [place] Heart Without Angina Pectoris Asymptomatic Cholelithiasis History [...] Gonzalez Podiatry 05/19/2015 End 05/19/15 Nirmal Kemp BALANCE ENGINEER 07/07/2017 End 07/07/17 ; Mohan Álvarez Ophthalmology 07/07/2017 End 07/07/17 Rickey Chavarria Cardiology 09/30/2018 End 09/30/18 ; End of Live Planning discussed including patients advanced directive wishes: Yes I am willing to follow advanced directives. Mini-Cog Patient asked to remember the following three words: Banana, [place] and Chair Visuospatial/Executiv e Functioning: Clock drawin/2 [...] No history of dysuria, frequency or incontinence PEAR PICKER: Negative for abnormal vaginal bleeding, abnormal vaginal [...] with supplements or by diet (goal of 8251-2681 mg/day - Discussed need and benefit for [...] arise. - Discussed diabetic education issues of detention diabetic complications, hypoglycemic symptoms, hyperglycemic symptoms, diet, [...] Lipid panel Jo Perez MD [facility] CNOVon 03-18-2019 CNOV Office Visit (AGHWW1 ) EZRA GONZALEZ ([id number]) 1935 F Date Time Provider Department 03/18/19 4:00 PM CRUZ SANCHEZ AGHWW1 During your visit today, we recorded the following information about you: Respiration Weight Height 17/minute 80.7 kg 1.651 m Cruz Sanchez MD 03/18/2019 7:00 PM Signed HISTORY OF PRESENT ILLNESS: Ezra Gonzalez is an 83-year-old ootbr-wqdg-yvpwuhkc female who returns for follow-up right shoulder [...] and strength with continued physical therapy in [place]. 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 Author Type: Physician Type: Progress Notes Filed: 03/18/2019 7:00 PM Note Text: HISTORY OF PRESENT ILLNESS: Ezra Gonzalez is an 83-year-old gjuzp-ajuy-gpizhjni female who returns for follow-up right shoulder [...] and strength with continued physical therapy in [place]. 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 Cruz Sanchez MD [facility] OBSOLETEon 03-17-2019 OBSOLETE Refill ([facility]) EZRA GONZALEZ ([id number]) 1935 F Date Time Provider Department 03/17/19 VIPUL BUCHANAN ([facility]) [facility] During your visit today, we recorded [...] Visit date not found Patient Phone numbers: [phone] (home) Request is for script(s) to be [...] artery stent placement- 2006 [Z95*11/14/2015 Atherosclerosis of [place] coronary artery of na*11/14/2015 Asymptomatic cholelithiasis [K80.20] [...] Encounter Status:Closed by JO PEREZ on 03/18/19 [facility] EZRA GONZALEZ ([id number]) 1935 F Date Time Provider Department 03/17/19 JO PEREZ [facility] During your visit today, we recorded the following information about you: Anne Marie Morrison 03/18/2019 7:41 AM Signed Pharmacy faxed requesting the following refill. Pending Prescriptions Disp Refills RANITIDINE 150 MG TABLET 90 tablet 0 Sig: TAKE ONE TABLET BY MOUTH EVERY DAY SHAHEEN: Yes Last refill: 12/16/2018 Patient last appointment: 09/30/2018 Patient next appointment: 04/02/2019 Patient Phone numbers: [phone] (home) Request is for script(s) to be escript to pharmacy. Anne Marie Anjel Reg Allergies As of Date: 03/17/2019 Noted [...] artery stent placement- 2006 [Z95*11/14/2015 Atherosclerosis of [place] coronary artery of na*11/14/2015 Asymptomatic cholelithiasis [K80.20] [...] by [facility] Office Visit (AGHWW1 ) EZRA GONZALEZ ([id number]) 1935 F Date Time Provider Department 02/04/19 1:30 PM [facility] During your visit today, we recorded the following information about you: Respiration Weight Height 17/minute 80.7 kg 1.676 m Cruz Sanchez MD 02/04/2019 4:40 PM Signed HISTORY OF PRESENT ILLNESS: Ezra Gonzalez was provided orthopedic evaluation regarding right shoulder complaints. Patient is an 83-year-old byxss-yfcz-douewuig female who is previously known status post [...] 2006 - On anticoagulant therapy - On detention drug therapy - Osteoarthritis - Peripheral venous [...] HX - HYSTERECTOMY HX - NUCLEAR STRESS PHILLIPISCAN (CARD) 11/08/2015 - SHOULDER SURGERY HX Right [...] GENERAL 3V OR MORE AP/TRUE AP/OTHER RT [[id number]] Order #: [id number] CONSULT TO PHYSICAL THERAPY (AG) [[id number]] Order #: [id number]: 1 DRAIN/INJECT LARGE JOINT/BURSA [68730CHP] Order #: [id number] [] betamethasone acetate-betamethasone sodium phosphate 12 mg [...] stent placement- 2006 [Z95*INVALID FOR* Atherosclerosis of [place] coronary artery of na*INVALID FOR* Asymptomatic cholelithiasis [...] Status:Closed by CRUZ SANCHEZ MD on 02/04/19 [facility] PROGRESSon 02-04-2019 PROGRESS HNO ID: [id number] Author: Cruz Sanchez Service: ? Author Type: Physician Type: Progress Notes Filed: 02/04/2019 4:40 PM Note Text: HISTORY OF PRESENT ILLNESS: Ezra Gonzalez was provided orthopedic evaluation regarding right shoulder complaints. 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 Cruz Sanchez MD [facility] OBSOLETEon 01-21-2019 OBSOLETE Refill (AGCARDPOB) EZRA GONZALEZ ([id number]) 1935 F Date Time Provider Department 01/21/19 [...] Myalgias Date Reviewed: 11/27/2018 Reviewed by: Vika CastroSelect [facility]ty [facility] UpmcFinesse Torres - Fully Assessed Reason for Visit: [...] stent placement- 2006 [Z95*INVALID FOR* Atherosclerosis of [place] coronary artery of na*INVALID FOR* Asymptomatic cholelithiasis [...] Status:Closed by RICKEY CHAVARRIA MD on 01/21/19 [facility] OBSOLETE Refill ([facility]) LISAEZRA ([id number]) 1935 F Date Time Provider Department 01/21/19 JO PEREZ During your visit today, we recorded the following information about you: Anne Marie Morrison 01/21/2019 12:05 PM Signed Pharmacy faxed requesting the following refill. Pending Prescriptions Disp Refills FUROSEMIDE 20 MG TABLET 90 tablet 2 Sig: TAKE ONE TABLET BY MOUTH ONCE DAILY SHAHEEN: Yes Last refill: 01/05/2018 Patient last appointment: 09/30/2018 Patient next appointment: 04/02/2019 Patient Phone numbers: [phone] (home) Request is for script(s) to be escript to pharmacy. Anne Marie Morrison Allergies As of Date: 01/21/2019 Noted Allergy Reaction CODEINE 03/20/2015 16 - Unknown CRESTOR (ROSUVASTATIN) 03/20/2015 14 - Other: See Comments Comments: Myalgias DEMEROL (MEPERIDINE) 03/20/2015 8 - GI Upset LATEX 03/20/2015 2 - Rash LIPITOR (ATORVASTATIN) 03/20/2015 14 - Other: See Comments Comments: Myalgias Date Reviewed: 11/27/2018 Reviewed by: Vika ([facility]) Brian - Fully Assessed Reason for Visit: [...] stent placement- 2006 [Z95*INVALID FOR* Atherosclerosis of [place] coronary artery of na*INVALID FOR* Asymptomatic cholelithiasis [...] Encounter Status:Closed by JO PEREZ on 01/21/19 [facility] CNTHERAPYon 12-14-2018 CNTHERAPY OT/PT/Speech Visit ([facility]) LISAEZRA ([id number]) 1935 F Date Time Provider Department 12/14/18 11:00 AM ANOOP COLLAZO (JAZMYN) [facility] Date Time Provider Department Center 12/14/2018 11:00 AM [id number]-ABOCJTEANOOP COLLAZO*AKSTWP NOLAN LONG Reason for Visit: Difficulty [...] Myalgias Date Reviewed: 11/27/2018 Reviewed by: Vika ([facility]) Brian - Fully Assessed Prescriptions as of [...] Jazmyn Hinson, JAZMYN 12/14/2018 4:44 PM Signed [facility] OUTPATIENT AUDIOLOGY SERVICES AUDIOLOGIC EVALUATION REPORT 12/14/2018 Page 1 of 3 Patient: Ezra Gonzalez : 1935 Referred by: Jo Perez (PCP: Yazmin) Referred for: Evaluation of suspected change in hearing, tinnitus, or balance. Referral documented: In an order in Epic: OTHER ORDERS: : CONSULT TO AUDIOLOGY FOR DIAGNOSTIC TESTING [9143] (Order [id number]) Patient's major complaints: Progressively increasing difficulty in [...] --Pure tone audiometry using insert earphones demonstrates qsxh-hp-aayffnooow severe level sensorineural type hearing loss, worse [...] up w/ referring physician. Report routed via [employer] inbox to Dr. Perez on 12/14/2018 -Re-evaluation [...] Audiogram can be also be viewed in [employer] SmartForms:Audiology: Audiometry. OAE and tympanometry results can be viewed in [employer] Scanned Documents. RIGHT EAR Hearing Sensitivity: 250-500HZ: WNL; 750-2000Hz:mild; 3000-8000Hz: moderate-severe SNHL Word Recognition Score (order by difficulty 10 word list): Excellent (90%) at slt amplified loudness (fair at conversational loudness) Tympanometry: Type A : Normal ME function. Otoacoustic Emissions results: 750-3000Hz: WNL; 2302-7497: reduced; 8000Hz: absent. LEFT EAR Hearing Sensitivity: 250-500HZ: WNL; 750-3000Hz: moderate; 6000-8000Hz: severe SNHL Word Recognition Score (order by difficulty 10 word list): Excellent (90%) at amplified loudness (poor at conversational loudness) Tympanometry: Type A : Normal ME function. Otoacoustic Emissions results: 750-1000Hz: absent; 1262-3180: reduced; 6000-8000Hz: absent. William Hinson. Port Traffic Manager 12/14/2018 3:30 PM Ezra Gonzalez : 1935 [...] this visit: Audiometry Letter Text Normal [facility] OBSOLETEon 12-14-2018 OBSOLETE Refill ([facility]) EZRA GONZALEZ ([id number]) 1935 F Date Time Provider Department 12/14/18 JO PEREZ [facility] During your visit today, we recorded the following information about you: Robert Diaz CMA 12/16/2018 1:00 PM Signed Patient called requesting the following refill. Pending Prescriptions Disp Refills RANITIDINE 150 MG TABLET 90 tablet 0 Sig: TAKE ONE TABLET BY MOUTH EVERY DAY SHAHEEN: Yes Last refill: 09/16/2018 Patient last appointment: 10/20/2018 Patient next appointment: 04/02/2019 Patient Phone numbers: [phone] (home) Request is for script(s) to be [...] Myalgias Date Reviewed: 11/27/2018 Reviewed by: Vika ([facility]) Brian - Fully Assessed Reason for Visit: [...] stent placement- 2006 [Z95*INVALID FOR* Atherosclerosis of [place] coronary artery of na*INVALID FOR* Asymptomatic cholelithiasis [...] Encounter Status:Closed by JO PEREZ on 12/16/18 [facility] PROGRESSon 12-14-2018 PROGRESS HNO ID: [id number] Author: Anoop Crisostomo) JAZMYN Collazo Service: ? Author Type: Port Traffic Manager Type: Progress Notes Filed: 12/14/2018 4:44 PM Note Text: [facility] OUTPATIENT AUDIOLOGY SERVICES AUDIOLOGIC EVALUATION REPORT 12/14/2018 Page 1 of 3 Patient: Ezra Gonzalez : 1935 Referred by: Jo Perez (PCP: Yazmin) Referred for: Evaluation of suspected change in hearing, tinnitus, or balance. Referral documented: In an order in [facility]: OTHER ORDERS: : CONSULT TO AUDIOLOGY FOR DIAGNOSTIC TESTING [9003] (Order [id number]) Patient's major complaints: Progressively increasing difficulty in [...] --Pure tone audiometry using insert earphones demonstrates mdus-uw-yfuoevyhxt severe level sensorineural type hearing loss, worse [...] up w/ referring physician. Report routed via [employer] inbox to Dr. Perez on 12/14/2018 -Re-evaluation [...] Audiogram can be also be viewed in [employer]:Audiology: Audiometry. OAE and tympanometry results can be viewed in [facility] Scanned Documents. RIGHT EAR Hearing Sensitivity: 250-500HZ: WNL; 750-2000Hz:mild; 3000-8000Hz: moderate-severe SNHL Word Recognition Score (order by difficulty 10 word list): Excellent (90%) at slt amplified loudness (fair at conversational loudness) Tympanometry: Type A : Normal ME function. Otoacoustic Emissions results: 750-3000Hz: WNL; 6014-7688: reduced; 8000Hz: absent. LEFT EAR Hearing Sensitivity: 250-500HZ: WNL; 750-3000Hz: moderate; 6000-8000Hz: severe SNHL Word Recognition Score (order by difficulty 10 word list): Excellent (90%) at amplified loudness (poor at conversational loudness) Tympanometry: Type A : Normal ME function. Otoacoustic Emissions results: 750-1000Hz: absent; 2498-9745: reduced; 6000-8000Hz: absent. William Hinson. Port Traffic Manager 12/14/2018 3:30 PM Ezra Gonzalez : 1935 [...] 90 + TM tympanic membrane Normal [facility] CNOVon 11-27-2018 CNOV Office Visit ([facility]) EZRA GONZALEZ ([id number]) 1935 F Date Time Provider Department 11/27/18 11:00 AM RICKEY CHAVARRIA [facility] During your visit today, we recorded the following information about you: Pulse Respiration Blood pressure Weight 66/minute 18/minute 124/70 80.7 kg Height 1.575 m Vika Torres CMA 11/27/2018 11:00 AM Signed Patient has no cardiac complaints today. Vika Chavarria MD 11/27/2018 11:24 AM Signed PRIMARY CARE PHYSICIAN: Jo Perez MD [address] [facility] [address] [place] [address] HISTORY OF PRESENT ILLNESS: Ms. Gonzalez is [...] again. 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 Ezra [...] of the time was spent in direct, bqon-uy-cuxr, contact with the patient for management and counseling. 1. Essential hypertension - ICD9: 401.9, ICD10: I10 (primary diagnosis) 2. Obesity, Class I, BMI 30-34.9 - ICD9: 278.00, ICD10: E66.9 3. Mixed hyperlipidemia - ICD9: 272.2, ICD10: E78.2 4. Paroxysmal atrial fibrillation (HCC) - ICD9: 427.31, ICD10: I48.0 5. Chronic anticoagulation - ICD9: V58.61, ICD10: Z79.01 Rickey Chavarria M.D. [facility] Referring Provider: SELF [200] Allergies As of Date: 11/27/2018 Noted Allergy Reaction CODEINE 03/20/2015 16 - Unknown CRESTOR (ROSUVASTATIN) 03/20/2015 14 - Other: See Comments Comments: Myalgias DEMEROL (MEPERIDINE) 03/20/2015 8 - GI Upset LATEX 03/20/2015 2 - Rash LIPITOR (ATORVASTATIN) 03/20/2015 14 - Other: See Comments Comments: Myalgias Date Reviewed: 11/27/2018 [facility]ed [facility]: [facility] Brian - Fully Assessed Reason for Visit: CARD Follow Up Annual [1232] Primary Visit Diagnosis:Essential hypertension [I10] Other Visit Diagnoses:Obesity, Class I, BMI 30-34.9 [E66.9] Mixed hyperlipidemia [E78.2] Paroxysmal atrial fibrillation (HCC) [I48.0] Chronic anticoagulation [Z79.01] Order(s):ECG B/O W INTERP (MED OFFICE) [ECG06] Order #: [id number] Prescriptions as of 11/27/2018 Sig: SIMVASTATIN 20 [...] stent placement- 2006 [Z95*INVALID FOR* Atherosclerosis of [place] coronary artery of na*INVALID FOR* Asymptomatic cholelithiasis [...] no cardiac complaints today. Vika Torres [facility] Disposition: Return in about 1 year (around 11/28/2019). Follow-up and Disposition History Recorded Letter Text Encounter Status:Closed by RICKEY CHAVARRIA MD on 11/27/18 [facility] PROGRESSon 11-27-2018 PROGRESS HNO ID: [id number] Author: Rickey Chavarria Service: ? Author Type: Physician Type: Progress Notes Filed: 11/27/2018 11:24 AM Note Text: PRIMARY CARE PHYSICIAN: Jo Perez MD [address] [facility] [address] [place] [address] HISTORY OF PRESENT ILLNESS: Ms. Gonzalez is [...] again. 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 Ezra [...] of the time was spent in direct, vtfo-dn-aisl, contact with the patient for management and counseling. 1. Essential hypertension - ICD9: 401.9, ICD10: I10 (primary diagnosis) 2. Obesity, Class I, BMI 30-34.9 - ICD9: 278.00, ICD10: E66.9 3. Mixed hyperlipidemia - ICD9: 272.2, ICD10: E78.2 4. Paroxysmal atrial fibrillation (HCC) - ICD9: 427.31, ICD10: I48.0 5. Chronic anticoagulation - ICD9: V58.61, ICD10: Z79.01 Rickey Chavarria M.D. [facility] Normal [facility] BONE DENSITY STUDY BY XRAY 7 7080on 07-15-2017 BONE DENSITY STUDY BY XRAY [id number] Performed at [facility] APPROVED BY: Kemar Adams MD EXAMINATION: BONE MINERAL DENSITOMETRY (DEXA SCAN) EXAM DATE: 07/15/2017 09:43 CLINICAL INDICATION: 82-year-old postmenopausal female , follow-up osteoporosis screening. COMPARISON: DEXA scan 10/06/2013. DXA [email or web address] v.13.4 examination is performed on the lumbar [...] for Metabolic Bone Disease, a WHO Collaborating [place]. This applies to men over 50 and [...] for accelerated bone loss). Normal [facility] MAMMOGRAM SCREENING WITH CAD IF PERFORMEDon 06-27-2017 MAMMOGRAM SCREENING WITH CAD IF PERFORMED Performed at [facility] APPROVED BY: Lucas Garrido MD #[id number] - MAMMOGRAM SCREENING WITH CAD IF PERFORMEDBILATERAL DIGITAL SCREENING MAMMOGRAM WITH CAD WITH MEDIOLATERAL OBLIQUE CRANIOCAUDAL: 06/27/2017CLINICAL: Routine screening mammogram. Patient reports no breast problems. Comparison is made to exams dated: 07/22/2016 mammogram - [facility], 06/26/2016 mammogram, 06/09/2015 mammogram, and 04/01/2014 mamm[address] - [facility]. There are scattered fibroglandular elements in [...] notified of the results. Lucas myers/penrad:06/27/2017 11:38:04 Blender Helper: Loan Summers)(M), [facility] Birad 1 or 2 Mammogram BI-RADS: 1 Negative Normal [facility] Otheron 02-03-2015 CONVERTED CLINICAL HISTORY OPERATIVE PROCEDURE: Colonoscopy CLINICAL INFORMATION: Screening [facility] CONVERTED ELECTRONIC SIGNATURE MO PATRICK M.D., PATHOLOGIST (Electronic signature on file) Final Signed Out: 02/03/2015 12:44 [facility] CONVERTED FINAL DIAGNOSIS FINAL DIAGNOSI S: A) COLON, ASCENDING, BIOPSIES - FRAGMENTS OF TUBULAR ADENOMA. B) COLON, RANDOM BIOPSIES - NO PATHOLOGIC ABNORMALITIES. [facility] CONVERTED GROSS DESCRIPTION GROSS DESCRIPTION: A) Ascending [...] totally submitted in cassette B x 3. SMS:[facility] CONVERTED ORDERING PROVIDER Ordering Provider: SHI LESTER [facility] Otheron 04-19-2010 CONVERTED ELECTRONIC SIGNATURE RAVINDER HAN M.D., PATHOLOGIST (Electronic signature on file) Final Signed Out: 04/19/2010 14:33 [facility] CONVERTED FINAL DIAGNOSIS FINAL DIAGNOSI S: RIGHT SHOULDER, EXCISION - BONE AND ATTACHED CARTILAGE WITH DEGENERATIVE CHANGES. SYNOVIUM WITH NONSPECIFIC REACTIVE CHANGES AND FOCAL MILD CHRONIC INFLAMMATION. 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 SPECIMEN: FEMORAL HEAD [facility] CONVERTED GROSS DESCRIPTION GROSS DESCRIPTION: Left femoral [...] SDS/gpl [facility] CONVERTED ORDERING PROVIDER Ordering Provider: CLOTILDE DOSS [facility] Thyroidon 08-02-2009 TSH Qn KVNG TYLER M.D., PATHOLOGIST (Electronic signature on file) Final Signed Out: 08/02/2009 14:47 [facility] Cardiacon 05-11-2001 Cholesterol [Mass/Vol] Ordering Provider : SAE FLANAGAN [facility] Otheron 05-11-2001 CONVERTED ELECTRONIC SIGNATURE MICHAEL HAWTHORNE M.D., PATHOLOGIST (Electronic signature on file) Final Signed Out: 05/11/2001 11:39 [facility] CONVERTED FINAL DIAGNOSIS TISSUE, REMOVE D AT RELEASE OF RIGHT RING FINGER - FIBROCOLLAGENOUS TISSUE WITH FOCAL FIBROBLASTIC REACTION AND FOCAL MIXOID CHANGE. ATTACHED SMALL AMOUNT OF TISSUE CONSISTENT WITH SYNOVIUM. [facility] Vital Signs Date Time Vital Sign Value Performing Clinician Facility 09-13-2024 14:00-0400 Body height 160.[address] Alexandra Hagen MD Work Phone: 1(047)838-565408 [place] [address] 09-13-2024 14:00-0400 Body mass index (BMI) [Ratio] 30.7 kg/m2 Dr. Alexandra Hagen MD Work Phone: 5(320)328-743440 [place] [address] 09-13-2024 14:00-0400 Body temperature 92.6 [degF] Dr. Alexandra Hagen MD Work Phone: 8(142)819-262440 [place] [address] 09-13-2024 14:00-0400 Body weight 78.[address] Alexandra Hagen MD Work Phone: 7(267)790-635940 [place] [address] 09-13-2024 14:00-0400 Diastolic blood pressure 79 mm[Hg] Dr. Alexandra Hagen MD Work Phone: 3(476)354-597940 [place] [address] 09-13-2024 14:00-0400 Heart rate 83 /min Dr. Alexandra Hagen MD Work Phone: 2(236)573-486540 [place] [address] 09-13-2024 14:00-0400 Respiratory rate 17 /min Dr. Alexandra Hagen MD Work Phone: 2(860)570-325840 [place] [address] 09-13-2024 14:00-0400 SaO2% (BldA) [Mass fraction] 97 % Dr. Alexandra Hagen MD Work Phone: 4(083)598-180040 [place] [address] 09-13-2024 14:00-0400 Systolic blood pressure 126 mm[Hg] Dr. Alexandra Hagen MD Work Phone: 6(914)330-205240 [place] [address] 09-11-2024 13:55-0400 Body mass index (BMI) [Ratio] 30.3 kg/m2 Dr. Alexandra Hagen MD Work Phone: 9(065)390-685040 [place] [address] 09-11-2024 09:09-0400 Body temperature 97.8 [degF] Dr. Alexandra Hagen MD Work Phone: 8(175)667-291940 [place] [address] 09-11-2024 09:09-0400 Diastolic blood pressure 85 mm[Hg] Dr. Alexandra Hagen MD Work Phone: [facility] 09-11-2024 09:09-0400 Heart rate 84 /min Dr. Alexandra Hagen MD Work Phone: [facility] 09-11-2024 09:09-0400 Respiratory rate 18 /min Dr. Alexandra Hagen MD Work Phone: [facility] 09-11-2024 09:09-0400 SaO2% (BldA) [Mass fraction] 98 % Dr. Alexandra Hagen MD Work Phone: 0(970)435-485255 [address] 09-11-2024 09:09-0400 Systolic blood pressure 174 mm[Hg] Dr. Alexandra Hagen MD Work Phone: 9(734)858-623908 [place] [address] 09-10-2024 17:17-0400 Body height 160.[address] Alexandra Hagen MD Work Phone: 9(370)097-785040 [place] [address] 09-10-2024 17:17-0400 Body weight 77.[address] Alexandra Hagen MD Work Phone: 2(231)414-248755 [address] 09-10-2024 16:30-0400 Diastolic blood pressure 73 mm[Hg] Dr. Alexandra Hagen MD Work Phone: 6(278)625-645808 [place] [address] 09-10-2024 16:30-0400 Heart rate 79 /min Dr. Alexandra Hagen MD Work Phone: 6(921)343-833808 [place] [address] 09-10-2024 16:30-0400 Respiratory rate 20 /min Dr. Alexandra Hagen MD Work Phone: 9(170)304-850408 [place] [address] 09-10-2024 16:30-0400 SaO2% (BldA) [Mass fraction] 93 % Dr. Alexandra Hagen MD Work Phone: 5(193)612-134155 [address] 09-10-2024 16:30-0400 Systolic blood pressure 118 mm[Hg] Dr. Alexandra Hagen MD Work Phone: 3(085)187-562108 [place] [address] 09-10-2024 16:07-0400 Body temperature 98.3 [degF] Dr. Alexandra Hagen MD Work Phone: 8(503)315-715940 [place] [address] 09-10-2024 14:19-0400 Body height 160.[address] Alexandra Hagen MD Work Phone: 4(252)895-368640 [place] [address] 09-10-2024 14:19-0400 Body mass index (BMI) [Ratio] 26.5 kg/m2 Dr. Alexandra Hagen MD Work Phone: 6(331)571-488640 [place] [address] 09-10-2024 14:19-0400 Body weight 68.[address] Alexandra Hagen MD Work Phone: 2(466)909-019540 [place] [address] 09-08-2024 15:30-0400 Heart rate 64 /min Dr. Alexandra Hagen MD Work Phone: 2(504)275-066240 [place] [address] 09-08-2024 15:30-0400 Respiratory rate 23 /min Dr. Alexandra Hagen MD Work Phone: 4(681)775-064640 [place] [address] 09-08-2024 15:30-0400 SaO2% (BldA) [Mass fraction] 97 % Dr. Alexandra Hagen MD Work Phone: 3(630)038-902740 [place] [address] 09-08-2024 12:22-0400 Body height 160.[address] Alexandra Hagen MD Work Phone: 1(909)578-491040 [place] [address] 09-08-2024 12:22-0400 Body mass index (BMI) [Ratio] 33.5 kg/m2 Dr. Alexandra Hagen MD Work Phone: 8(367)676-892940 [place] [address] 09-08-2024 12:22-0400 Body temperature 98 [degF] Dr. Alexandra Hagen MD Work Phone: 6(087)232-504040 [place] [address] 09-08-2024 12:22-0400 Body weight 85.[address] Alexandra Hagen MD Work Phone: 9(130)687-282140 [place] [address] 09-08-2024 12:22-0400 Diastolic blood pressure 70 mm[Hg] Dr. Alexandra Hagen MD Work Phone: 9(247)397-659940 [place] [address] 09-08-2024 12:22-0400 Systolic blood pressure 131 mm[Hg] Dr. Alexandra Hagen MD Work Phone: 9(334)975-695708 [place] [address] 07-01-2024 10:38-0400 Body height 160.[address] Alexandra Hagen MD Work Phone: 2(160)317-641740 [place] [address] 07-01-2024 10:38-0400 Body mass index (BMI) [Ratio] 30.8 kg/m2 Dr. Alexandra Hagen MD Work Phone: 9(238)934-343640 [place] [address] 07-01-2024 10:38-0400 Body weight 78.[address] Alexandra Hagen MD Work Phone: 5(644)316-646940 [place] [address] 07-01-2024 10:38-0400 Diastolic blood pressure 85 mm[Hg] Dr. Alexandra Hagen MD Work Phone: 8(751)569-301240 [place] [address] 07-01-2024 10:38-0400 Heart rate 60 /min Dr. Alexandra Hagen MD Work Phone: 6(331)229-338740 [place] [address] 07-01-2024 10:38-0400 Respiratory rate 16 /min Dr. Alexandra Hagen MD Work Phone: 4(824)295-974340 [place] [address] 07-01-2024 10:38-0400 Systolic blood pressure 184 mm[Hg] Dr. Alexandra Hagen MD Work Phone: 4(609)818-187240 [place] [address] 05-10-2024 14:35-0500 Body height 160.[address] Alexandra Hagen MD Work Phone: 1(971)691-603440 [place] [address] 05-10-2024 14:35-0500 Body mass index (BMI) [Ratio] 30.9 kg/m2 Dr. Alexandra Hagen MD Work Phone: 2(082)250-080240 [place] [address] 05-10-2024 14:35-0500 Body temperature 97.8 [degF] Dr. Alexandra Hagen MD Work Phone: 3(661)072-235640 [place] [address] 05-10-2024 14:35-0500 Body weight 79.[address] Alexandra Hagen MD Work Phone: 5(076)792-810940 [place] [address] 05-10-2024 14:35-0500 Diastolic blood pressure 86 mm[Hg] Dr. Alexandra Hagen MD Work Phone: [facility] 05-10-2024 14:35-0500 Heart rate 75 /min Dr. Alexandra Hagen MD Work Phone: [facility] 05-10-2024 14:35-0500 Respiratory rate 16 /min Dr. Alexandra Hagen MD Work Phone: [facility] 05-10-2024 14:35-0500 SaO2% (BldA) [Mass fraction] 94 % Dr. Alexandra Hagen MD Work Phone: [facility] 05-10-2024 14:35-0500 Systolic blood pressure 140 mm[Hg] Dr. Alexandra Hagen MD Work Phone: [facility] 06-20-2023 11:10-0400 Diastolic blood pressure 92 mm[Hg] Sae Conde MD Work Phone: [facility] 06-20-2023 11:10-0400 Heart rate 88 /min Sae Conde MD Work Phone: [facility] 06-20-2023 11:10-0400 Systolic blood pressure 173 mm[Hg] Sae Conde MD Work Phone: [facility] 06-20-2023 05:34-0400 Body temperature 97.39 [degF] Sae Conde MD Work Phone: [facility] 06-20-2023 05:34-0400 Respiratory rate 20 /min Sae Conde MD Work Phone: [facility] 06-20-2023 05:34-0400 SaO2% (BldA) [Mass fraction] 95 % Sae Conde MD Work Phone: [facility] 06-17-2023 18:30-0400 Body height 160 cm Sae Conde MD Work Phone: [facility] 06-17-2023 18:30-0400 Body mass index (BMI) [Ratio] 30.83 kg/m2 Sae Conde MD Work Phone: [facility] 06-17-2023 18:30-0400 Body weight 78.93 kg Sae Conde MD Work Phone: [facility] 06-16-2023 11:02-0400 Body temperature 96.4 [degF] Dr. Rosemary Doran Work Phone: [facility] 06-16-2023 11:02-0400 Diastolic blood pressure 84 mm[Hg] Dr. Rosemary Doran Work Phone: [facility] 06-16-2023 11:02-0400 Heart rate 72 /min Dr. Rosemary Doran Work Phone: [facility] 06-16-2023 11:02-0400 Respiratory rate 16 /min Dr. Rosemary Doran Work Phone: [facility] 06-16-2023 11:02-0400 SaO2% (BldA) [Mass fraction] 96 % Dr. Rosemary Doran Work Phone: [facility] 06-16-2023 11:02-0400 Systolic blood pressure 157 mm[Hg] Dr. Rosemary Doran Work Phone: [facility] 06-16-2023 08:33-0400 Body height 160.[address] Rosemary Doran Work Phone: [facility] 06-16-2023 08:33-0400 Body mass index (BMI) [Ratio] 33.1 kg/m2 Dr. Rosemary Doran Work Phone: [facility] 06-16-2023 08:33-0400 Body weight 84.[address] Rosemary Doran Work Phone: [facility] 05-19-2023 11:21-0500 Body height 160.[address] Rosemary Doran Work Phone: [facility] 05-19-2023 11:21-0500 Body mass index (BMI) [Ratio] 31.6 kg/m2 Dr. Rosemary Doran Work Phone: [facility] 05-19-2023 11:21-0500 Body temperature 97.8 [degF] Dr. Rosemary Doran Work Phone: [facility] 05-19-2023 11:21-0500 Body weight 81.[address] Rosemary Doran Work Phone: [facility] 05-19-2023 11:21-0500 Diastolic blood pressure 90 mm[Hg] Dr. Rosemary Doran Work Phone: [facility] 05-19-2023 11:21-0500 Heart rate 88 /min Dr. Rosemary Doran Work Phone: [facility] 05-19-2023 11:21-0500 Respiratory rate 17 /min Dr. Rosemary Doran Work Phone: [facility] 05-19-2023 11:21-0500 SaO2% (BldA) [Mass fraction] 98 % Dr. Rosemary Doran Work Phone: [facility] 05-19-2023 11:21-0500 Systolic blood pressure 152 mm[Hg] Dr. Rosemary Doran Work Phone: [facility] 05-15-2023 09:01-0500 Body mass index (BMI) [Ratio] 31.6 kg/m2 Dr. Rosemary Doran Work Phone: [facility] 05-15-2023 09:01-0500 Body weight 81.[address] Rosemary Doran Work Phone: [facility] 05-15-2023 09:01-0500 Diastolic blood pressure 85 mm[Hg] Dr. Rosemary Doran Work Phone: [facility] 05-15-2023 09:01-0500 Heart rate 78 /min Dr. Rosemary Doran Work Phone: [facility] 05-15-2023 09:01-0500 Respiratory rate 18 /min Dr. Rosemary Doran Work Phone: [facility] 05-15-2023 09:01-0500 Systolic blood pressure 156 mm[Hg] Dr. Rosemary Doran Work Phone: [facility] 01-20-2023 08:05-0400 Body height 160.[address] Rosemary Doran Work Phone: [facility] 01-20-2023 08:05-0400 Body mass index (BMI) [Ratio] 32 kg/m2 Dr. Rosemary Doran Work Phone: [facility] 01-20-2023 08:05-0400 Body temperature 98 [degF] Dr. Rosemary Doran Work Phone: [facility] 01-20-2023 08:05-0400 Body weight 82.[address] Rosemary Doran Work Phone: [facility] 01-20-2023 08:05-0400 Diastolic blood pressure 90 mm[Hg] Dr. Rosemary Doran Work Phone: [facility] 01-20-2023 08:05-0400 Heart rate 88 /min Dr. Rosemary Doran Work Phone: [facility] 01-20-2023 08:05-0400 Respiratory rate 17 /min Dr. Rosemary Doran Work Phone: [facility] 01-20-2023 08:05-0400 SaO2% (BldA) [Mass fraction] 97 % Dr. Rosemary Doran Work Phone: [facility] 01-20-2023 08:05-0400 Systolic blood pressure 140 mm[Hg] Dr. Rosemary Doran Work Phone: [facility] 12-28-2022 11:09-0400 Body temperature 97.8 [degF] Dr. Rosemary Doran Work Phone: [facility] 12-28-2022 11:09-0400 Diastolic blood pressure 79 mm[Hg] Dr. Rosemary Doran Work Phone: [facility] 12-28-2022 11:09-0400 Heart rate 84 /min Dr. Rosemary Doran Work Phone: [facility] 12-28-2022 11:09-0400 Respiratory rate 16 /min Dr. Rosemary Doran Work Phone: [facility] 12-28-2022 11:09-0400 SaO2% (BldA) [Mass fraction] 96 % Dr. Rosemary Doran Work Phone: [facility] 12-28-2022 11:09-0400 Systolic blood pressure 169 mm[Hg] Dr. Rosemary Doran Work Phone: [facility] 12-27-2022 19:16-0400 Body height 160.[address] Rosemary Doran Work Phone: [facility] 12-27-2022 19:16-0400 Body mass index (BMI) [Ratio] 32.1 kg/m2 Dr. Rosemary Doran Work Phone: [facility] 12-27-2022 19:16-0400 Body weight 82.[address] Rosemary Doran Work Phone: [facility] 12-05-2022 09:25-0400 Body temperature 98.2 [degF] Dr. Rosemary Doran Work Phone: [facility] [place] 12-05-2022 09:25-0400 Body weight 82.[address] Rosemary Doran Work Phone: [facility] 12-05-2022 09:25-0400 Diastolic blood pressure 85 mm[Hg] Dr. Rosemary Doran Work Phone: [facility] 12-05-2022 09:25-0400 Heart rate 90 /min Dr. Rosemary Doran Work Phone: [facility] 12-05-2022 09:25-0400 SaO2% (BldA) [Mass fraction] 95 % Dr. Rosemary Doran Work Phone: [facility] 12-05-2022 09:25-0400 Systolic blood pressure 145 mm[Hg] Dr. Rosemary Doran Work Phone: [facility] 11-18-2022 11:24-0400 Diastolic blood pressure 82 mm[Hg] Dr. Rosemary Doran Work Phone: [facility] 11-18-2022 11:24-0400 Heart rate 76 /min Dr. Rosemary Doran Work Phone: [facility] 11-18-2022 11:24-0400 Respiratory rate 15 /min Dr. Rosemary Doran Work Phone: [facility] 11-18-2022 11:24-0400 SaO2% (BldA) [Mass fraction] 98 % Dr. Rosemary Doran Work Phone: [facility] 11-18-2022 11:24-0400 Systolic blood pressure 137 mm[Hg] Dr. Rosemary Doran Work Phone: [facility] 11-18-2022 07:55-0400 Body height 160.[address] Rosemary Doran Work Phone: [facility] 11-18-2022 07:55-0400 Body mass index (BMI) [Ratio] 32.9 kg/m2 Dr. Rosemary Doran Work Phone: [facility] 11-18-2022 07:55-0400 Body weight 84.[address] Rosemary Doran Work Phone: [facility] 11-18-2022 07:50-0400 Body temperature 97.8 [degF] Dr. Rosemary Doran Work Phone: [facility] 11-15-2022 10:11-0400 Body mass index (BMI) [Ratio] 32.2 kg/m2 Dr. Rosemary Doran Work Phone: [facility] 11-15-2022 08:55-0400 Body temperature 97.7 [degF] Dr. Rosemary Doran Work Phone: [facility] 11-15-2022 08:55-0400 Diastolic blood pressure 78 mm[Hg] Dr. Rosemary Doran Work Phone: [facility] 11-15-2022 08:55-0400 Heart rate 68 /min Dr. Rosemary Doran Work Phone: [facility] 11-15-2022 08:55-0400 Respiratory rate 16 /min Dr. Rosemary Doran Work Phone: [facility] 11-15-2022 08:55-0400 SaO2% (BldA) [Mass fraction] 96 % Dr. Rosemary Doran Work Phone: [facility] [place] 11-15-2022 08:55-0400 Systolic blood pressure 136 mm[Hg] Dr. Rosemary Doran Work Phone: [facility] 11-14-2022 13:12-0400 Body weight 82.[address] Rosemary Doran Work Phone: [facility] 11-14-2022 12:30-0400 Body temperature 97.6 [degF] Dr. Rosemary Doran Work Phone: [facility] 11-14-2022 12:30-0400 Diastolic blood pressure 101 mm[Hg] Dr. Rosemary Doran Work Phone: [facility] 11-14-2022 12:30-0400 Heart rate 64 /min Dr. Rosemary Doran Work Phone: [facility] 11-14-2022 12:30-0400 Respiratory rate 14 /min Dr. Rosemary Doran Work Phone: [facility] [place] 11-14-2022 12:30-0400 SaO2% (BldA) [Mass fraction] 98 % Dr. Rosemary Doran Work Phone: [facility] [place] 11-14-2022 12:30-0400 Systolic blood pressure 164 mm[Hg] Dr. Rosemary Doran Work Phone: [facility] 11-14-2022 11:02-0400 Body height 160.[address] Rosemary Doran Work Phone: [facility] [place] 11-14-2022 11:02-0400 Body mass index (BMI) [Ratio] 33.7 kg/m2 Dr. Rosemary Doran Work Phone: [facility] [place] 11-14-2022 11:02-0400 Body weight 86.[address] Rosemary Doran Work Phone: [facility] [place] 10-15-2022 09:24-0400 Body height 160.[address] Rosemary Doran Work Phone: [facility] [place] 10-15-2022 09:24-0400 Body mass index (BMI) [Ratio] 30.8 kg/m2 Dr. Rosemray Doran Work Phone: [facility] [place] 10-15-2022 09:24-0400 Body weight 78.[address] Rosemary Doran Work Phone: [facility] [place] 10-15-2022 09:24-0400 Diastolic blood pressure 87 mm[Hg] Dr. Rosemary Doran Work Phone: [facility] [place] 10-15-2022 09:24-0400 Heart rate 73 /min Dr. Rosemary Doran Work Phone: [facility] [place] 10-15-2022 09:24-0400 Respiratory rate 18 /min Dr. Rosemary Doran Work Phone: [facility] [place] 10-15-2022 09:24-0400 Systolic blood pressure 149 mm[Hg] Dr. Rosemary Doran Work Phone: [facility] [place] 09-18-2022 19:36-0400 Diastolic blood pressure 72 mm[Hg] Dr. Rosemary Doran Work Phone: [facility] [place] 09-18-2022 19:36-0400 Systolic blood pressure 140 mm[Hg] Dr. Rosemary Doran Work Phone: [facility] [place] 09-18-2022 08:05-0400 Body height 160.[address] Rosemary Doran Work Phone: [facility] [place] 09-18-2022 08:05-0400 Body mass index (BMI) [Ratio] 31.8 kg/m2 Dr. Rosemary Doran Work Phone: [facility] [place] 09-18-2022 08:05-0400 Body temperature 97.8 [degF] Dr. Rosemary Doran Work Phone: [facility] 09-18-2022 08:05-0400 Body weight 81.[address] Rosemary Doran Work Phone: [facility] [place] 09-18-2022 08:05-0400 Heart rate 111 /min Dr. Rosemary Doran Work Phone: [facility] [place] 09-18-2022 08:05-0400 Respiratory rate 17 /min Dr. Rosemary Doran Work Phone: [facility] [place] 09-18-2022 08:05-0400 SaO2% (BldA) [Mass fraction] 99 % Dr. Rosemary Doran Work Phone: [facility] [place] 09-08-2022 16:03-0400 Diastolic blood pressure 84 mm[Hg] Dr. Rosemary Doran Work Phone: [facility] [place] 09-08-2022 16:03-0400 Heart rate 90 /min Dr. Rosemary Doran Work Phone: [facility] [place] 09-08-2022 16:03-0400 Respiratory rate 20 /min Dr. Rosemary Doran Work Phone: [facility] [place] 09-08-2022 16:03-0400 SaO2% (BldA) [Mass fraction] 97 % Dr. Rosemary Doran Work Phone: [facility] [place] 09-08-2022 16:03-0400 Systolic blood pressure 157 mm[Hg] Dr. Rosemary Doran Work Phone: [facility] [place] 09-08-2022 15:32-0400 Body mass index (BMI) [Ratio] 33.2 kg/m2 Dr. oRsemary Doran Work Phone: [facility] [place] 09-08-2022 15:32-0400 Body weight [address] Rosemary Doran Work Phone: [facility] [place] 09-08-2022 14:26-0400 Body temperature 96.8 [degF] Dr. Rosemary Doran Work Phone: [facility] [place] 04-16-2022 14:26-0500 Body height 160.[address] Rosemary Doran Work Phone: [facility] 04-16-2022 14:26-0500 Body mass index (BMI) [Ratio] 30.6 kg/m2 Dr. Rosemary Doran Work Phone: [facility] [place] 04-16-2022 14:26-0500 Body weight 78.[address] Rosemary Doarn Work Phone: [facility] [place] 04-16-2022 14:26-0500 Diastolic blood pressure 60 mm[Hg] Dr. Rosemary Doran Work Phone: [facility] [place] 04-16-2022 14:26-0500 Heart rate 88 /min Dr. Rosemary Doran Work Phone: [facility] 04-16-2022 14:26-0500 Respiratory rate 18 /min Dr. Rosemary Doran Work Phone: [facility] 04-16-2022 14:26-0500 Systolic blood pressure 89 mm[Hg] Dr. Rosemary Doran Work Phone: [facility] [place] 02-11-2022 02:02-0500 Diastolic blood pressure 82 mm[Hg] Dr. Rosemary Doran Work Phone: [facility] 02-11-2022 02:02-0500 Heart rate 74 /min Dr. Rosemary Doran Work Phone: [facility] [place] 02-11-2022 02:02-0500 Respiratory rate 16 /min Dr. Rosemary Doran Work Phone: [facility] 02-11-2022 02:02-0500 SaO2% (BldA) [Mass fraction] 96 % Dr. Rosemary Doran Work Phone: [facility] 02-11-2022 02:02-0500 Systolic blood pressure 106 mm[Hg] Dr. Rosemary Doran Work Phone: [facility] 02-11-2022 00:07-0500 Body height 160.[address] Rosemary Doran Work Phone: [facility] [place] Work Phone: 02-11-2022 00:07-0500 Body mass index (BMI) [Ratio] 33.1 kg/m2 Dr. Rosemary Doran Work Phone: [facility] [place] 02-11-2022 00:07-0500 Body temperature 98.4 [degF] Dr. Rosemary Doran Work Phone: [facility] [place] 02-11-2022 00:07-0500 Body weight 84.[address] Rosemary Doran Work Phone: [facility] [place] 10-18-2021 10:26-0400 Body mass index (BMI) [Ratio] 33.1 kg/m2 Dr. Rosemary Doran Work Phone: [facility] [place] Work Phone: 10-18-2021 10:26-0400 Body weight 84.[address] Rosemary Doran Work Phone: [facility] [place] Work Phone: 10-18-2021 10:26-0400 Diastolic blood pressure 63 mm[Hg] Dr. Rosemary Doran Work Phone: [facility] [place] Work Phone: 10-18-2021 10:26-0400 Heart rate 87 /min Dr. Rosemary Doran Work Phone: [facility] Work Phone: 10-18-2021 10:26-0400 Respiratory rate 20 /min Dr. Rosemary Doran Work Phone: [facility] [place] Work Phone: 10-18-2021 10:26-0400 SaO2% (BldA) [Mass fraction] 96 % Dr. Rosemary Doran Work Phone: [facility] [place] Work Phone: 10-18-2021 10:26-0400 Systolic blood pressure 101 mm[Hg] Dr. Rosemary Doran Work Phone: [facility] [place] Work Phone: Encounters Encounter Date Encounter Type Care Provider Facility Start: 10-25-2024 ambulatory Kvng Ochoa O[facility] Facil ity:[facility] [place] Start: 10-11-2024 ambulatory Kvng Ochoa OLS Facil ity:[facility] [place] Start: 10-04-2024 ambulatory Westmoreland Douglas OLS Facilit y:[facility] [place] Start: 09-24-2024 ambulatory Westmoreland Douglas OLS Facilit y:[facility] [place] Start: 09-22-2024 ambulatory Kvng Ochoa OLS Facil ity:[facility] [place] Start: 09-17-2024 ambulatory Westmoreland Douglas OLS Facilit y:[facility] [place] Start: 09-13-2024 End: 09-13-[address] Anant Juarez MD -[facility] Work Phone: Start: 09-13-2024 End: 09-13-[address] Alexandra Hagen MD Work Phone: [facility] Work Phone: Start: 09-13-2024 End: 09-13-2024 ambulatory Anant Juarez Facility:[facility] Start: 09-11-2024 Non-patient / Non-visit [facility] Work Phone: Start: 09-10-2024 End: 09-11-2024 ambulatory [facility] Facility:[facility] [place] Start: 09-10-2024 End: 09-11-2024 Evaluation and management of inpatient Dr. Matthew Oro DO -[facility] Work Phone: Start: 09-10-2024 End: 09-11-[address] Alexandra Hagen MD Work Phone: [facility] [place] Work Phone: Start: 09-08-2024 End: 09-08-2024 Emergency department patient visit Dr. Alexandra Hagen MD Work Phone: -Emergency Department Work Phone: Start: 08-18-2024 End: 08-18-[address] Alexandra Hagen MD Work Phone: [facility] [place] Work Phone: Start: 08-18-2024 End: 08-18-2024 Departed Referred [facility] Work Phone: Start: 08-18-2024 Registered Referred [facility] Work Phone: Start: 08-18-2024 End: 08-18-2024 ambulatory Cesar MARTINEZ Facility:[facility] Start: 07-19-2024 End: 07-19-[address] Alexandra Hagen MD Work Phone: [facility] Work Phone: Start: 07-19-2024 End: 07-19-2024 Departed Referred [facility] Work Phone: Start: 07-19-2024 End: 07-19-2024 ambulatory Cesar MARTINEZ Facility:[facility] [place] Start: 07-01-2024 End: 07-01-[address] Cesar Cole MD -[facility] Work Phone: Start: 07-01-2024 End: 07-01-2024 ambulatory Cesar Cole Facility:[facility] Start: 06-16-2024 End: 06-16-[address] Alexandra Hagen MD Work Phone: [facility] Work Phone: Start: 06-16-2024 End: 06-16-[address] [facility] Work Phone: Start: 06-16-[address] [facility] Work Phone: Start: 06-16-2024 End: 06-16-2024 ambulatory Kvng MARTINEZ Facility:[facility] Start: 06-09-2024 End: 06-09-[address] Alexandra Hagen MD Work Phone: [facility] Work Phone: Start: 06-09-2024 End: 06-09-[address] Kvng Ochoa [facility] Work Phone: Start: 06-09-2024 End: 06-09-2024 ambulatory Kvng MARTINEZ Facility:[facility] Start: 05-19-2024 End: 05-19-[address] Alexandra Hagen MD Work Phone: [facility] Work Phone: Start: 05-19-2024 End: 05-19-2024 [facility] Work [facility]: Start: 05-19-2024 Registered Referred Cesar Leonard [place] [facility] Work Phone: Start: 05-19-2024 End: 05-19-2024 ambulatory Cesar MARTINEZ Facility:[facility] Start: 05-12-2024 ambulatory Anant Juarez Facilit y:[facility] Start: 05-12-2024 Registered Referred [facility] [facility] Work Phone: Start: 05-10-2024 End: 05-10-[address] Anant Juarez MD -[facility] Work Phone: Start: 05-10-2024 End: 05-10-2024 ambulatory Alexandra Hagen Facility:[facility] Start: 05-05-2024 End: 05-05-[address] Alexandra Hagen MD Work Phone: [facility] [place] Work Phone: Start: 05-05-2024 End: 05-05-2024 Departed Referred [facility] [place] Work Phone: Start: 05-05-2024 Registered Referred Cesar Cole MD - [facility] Work Phone: Start: 05-05-2024 End: 05-05-2024 ambulatory Alexandra S Jolliff Facility:[facility] Start: 04-28-2024 End: 04-28-[address] Alexandra Hagen MD Work Phone: [facility] [place] Work Phone: Start: 04-28-2024 End: 04-28-[address] Kvng Ochoa MD -[facility] Work Phone: Start: 04-28-2024 End: 04-28-2024 ambulatory Alexandra S Jolliff Facility:[facility] Start: 04-14-2024 ambulatory Kvng Arenas ity:[facility] [place] Start: 04-14-[address] [facility] Work Phone: Start: 04-09-2024 End: 04-09-[address] [facility] Work Phone: Start: 04-09-2024 End: 04-09-2024 ambulatory Alexandra S Jolliff Facility:[facility] [place] Start: 04-06-2024 End: 04-06-[address] [facility] Work Phone: Start: 04-05-2024 End: 04-06-2024 ambulatory Alexandra S Jolliff Facility:[facility] [place] Start: 04-05-[address] [facility] Work Phone: Start: 03-29-2024 ambulatory Alexandra S Jolliff Facility: [facility] [place] Start: 03-29-[address] [facility] Work Phone: Start: 03-26-2024 ambulatory Alexandra S Jolliff Facility: [facility] [place] Start: 03-26-[address] [facility] Work Phone: Start: 03-25-2024 ambulatory Kvng MRATINEZ Facil ity:[facility] [place] Start: 03-25-[address] [facility] Work Phone: Start: 03-19-2024 ambulatory Kvng Ochoa OLS Facil ity:[facility] [place] Start: 03-19-[address] [facility] Work Phone: Start: 03-17-2024 ambulatory Kvng MARTINEZ Facil ity:[facility] [place] Start: 03-17-[address] [facility] Work Phone: Start: 03-10-2024 ambulatory Kvng MARTINEZ Facil ity:[facility] [place] Start: 03-10-[address] [facility] Work Phone: Start: 03-08-2024 ambulatory Kvng MARTINEZ Facil ity:[facility] [place] Start: 03-08-[address] [facility] Work Phone: Start: 03-04-2024 ambulatory Kvng MARTINEZ Facil ity:[facility] [place] Start: 03-04-[address] [facility] Work Phone: Start: 02-05-2024 End: 02-05-[address] [facility] Work Phone: Start: 02-05-2024 End: 02-05-2024 ambulatory Kvng MARTINEZ Facility:[facility] [place] Start: 01-08-2024 End: 01-08-2024 ambulatory Kvng MARTINEZ Facility:[facility] [place] Start: 12-26-2023 End: 12-26-2023 ambulatory Kvng Ochoa OLS Facility:[facility] [place] Start: 12-19-2023 End: 12-19-2023 ambulatory Kvng Ochoa OLS Facility:[facility] [place] Start: 12-18-2023 End: 12-18-2023 ambulatory Kvng Ochoa OLS Facility:[facility] [place] Start: 11-20-2023 ambulatory Kvng Ochoa OLS Facil ity:[facility] [place] Start: 11-05-2023 End: 11-05-2023 ambulatory Kvng Ochoa OLS Facility:[facility] [place] Start: 11-04-2023 End: 11-04-2023 ambulatory Kvng Ochoa OLS Facility:[facility] [place] Start: 10-28-2023 End: 10-28-2023 ambulatory Kvng Ochoa OLS Facility:[facility] Start: 06-30-2023 End: 06-30-[address] Rosemary Doran Work Phone: [facility] [place] Work Phone: Start: 06-30-2023 End: 06-30-[address] Rosemary Doran Work Phone: [facility] Work Phone: Start: 06-16-2023 End: 06-20-2023 Evaluation and management of inpatient [facility] Start: 06-16-2023 End: 06-20-2023 Evaluation and management of inpatient Sae Conde MD Work Phone: [address] Comment on above: Closed displaced fra cture of medial condyle of right humerus, initial encounter (Primary Dx) Start: 06-16-2023 Non-patient / Non-visit Dr. Slim Doran Work Phone: [facility] Start: 06-16-2023 End: 06-16-2023 Emergency department patient visit Dr. Rosemary Doran Work Phone: [facility] [place] Work Phone: Start: 05-30-2023 End: 05-30-[address] Rosemary Doran Work Phone: [facility] Work Phone: Start: 05-30-2023 End: 05-30-[address] Rosemary Doran Work Phone: [facility] Work Phone: Start: 05-19-2023 End: 05-19-[address] Rosemary Doran Work Phone: [facility] Work Phone: Start: 05-15-2023 End: 05-15-[address] Rosemary Doran Work Phone: [facility] Work Phone: Start: 05-12-2023 End: 05-12-[address] Rosemary Doran Work Phone: [facility] Work Phone: Start: 05-12-[address] Rosemary Doran Work Phone: [facility] Work Phone: Start: 05-01-2023 End: 05-01-[address] Rosemary Doran Work Phone: [facility] Work Phone: Start: 05-01-2023 End: 05-01-[address] Rosemary Doran Work Phone: [facility] Work Phone: Start: 04-17-2023 End: 04-17-[address] Rosemary Doran Work Phone: [facility] Work Phone: Start: 04-17-2023 End: 04-17-[address] Rosemary Doran Work Phone: [facility] Work Phone: Start: 04-17-[address] Rosemary Doran Work Phone: [facility] Work Phone: Start: 03-20-2023 End: 03-20-[address] Rosemary Doran Work Phone: [facility] Work Phone: Start: 02-21-2023 End: 02-21-[address] Rosemary Doran Work Phone: [facility] Work Phone: Start: 02-21-2023 End: 02-21-[address] Rosemary Doran Work Phone: [facility] Work Phone: Start: 01-20-2023 End: 01-20-[address] Roesmary Doran Work Phone: [facility] Work Phone: Start: 01-20-2023 End: 01-20-[address] Rosemary Doran Work Phone: [facility] Work Phone: Start: 01-20-2023 End: 01-20-[address] Rosemary Doran Work Phone: [facility] Work Phone: Start: 01-16-2023 End: 01-16-[address] Rosemary Doran Work Phone: [facility] Work Phone: Start: 01-16-2023 End: 01-16-[address] Rosemary Doran Work Phone: [facility] Work Phone: Start: 12-28-2022 Non-patient / Non-visit Dr. Slim Doran Work Phone: [facility] Work Phone: Start: 12-27-2022 Non-patient / Non-visit Dr. Slim Doran Work Phone: [facility] Work Phone: Start: 12-27-2022 End: 12-28-2022 Evaluation and management of inpatient Dr. Rosemary Doran Work Phone: [facility] [place] Work Phone: Start: 12-27-2022 End: 12-28-[address] Rosemary Doran Work Phone: [facility] Work Phone: Start: 12-19-2022 End: 12-19-[address] Rosemary Doran Work Phone: [facility] Work Phone: Start: 12-19-2022 End: 12-19-[address] Rosemary Doran Work Phone: [facility] Work Phone: Start: 12-19-[address] Rosemary Doran Work Phone: [facility] Work Phone: Start: 12-09-2022 End: 12-09-[address] Rosemary Doran Work Phone: [facility] Work Phone: Start: 12-09-2022 End: 12-09-[address] Rosemary Doran Work Phone: [facility] Work Phone: Start: 12-09-[address] Rosemary Doran Work Phone: [facility] Work Phone: Start: 12-05-2022 End: 12-05-[address] Rosemary Doran Work Phone: [facility] Work Phone: Start: 11-20-2022 End: 11-20-[address] Rosemary Doran Work Phone: [facility] [place] Work Phone: Start: 11-20-2022 End: 11-20-[address] Rosemary Doran Work Phone: [facility] Work Phone: Start: 11-20-[address] Rosemary Doran Work Phone: [facility] Work Phone: Start: 11-18-2022 End: 11-18-2022 Emergency department patient visit Dr. Rosemary Doran Work Phone: [facility] [place] Work Phone: Start: 11-15-2022 Non-patient / Non-visit Dr. Slim Doran Work Phone: [facility] Work Phone: Start: 11-14-2022 Non-patient / Non-visit Dr. Slim Doran Work Phone: [facility] Start: 11-14-2022 Non-patient / Non-visit Dr. Slim Doran Work Phone: [facility] Work Phone: Start: 11-14-2022 End: 11-15-2022 Evaluation and management of inpatient Dr. Rosemary Doran Work Phone: [facility] [place] Work Phone: Start: 11-14-[address] Marcelo Doran Work Phone: [facility] Work Phone: Start: 10-23-2022 End: 10-23-[address] Rosemary Doran Work Phone: [facility] Work Phone: Start: 10-23-2022 End: 10-23-[address] Rosemary Doran Work Phone: [place] [facility] Work Phone: Start: 10-22-2022 End: 10-22-[address] Rosemary Doran Work Phone: [facility] Work Phone: Start: 10-22-2022 End: 10-22-[address] Rosemary Doran Work Phone: [facility] Work Phone: Start: 10-22-[address] Sada Doran Work Phone: [facility] Work Phone: Start: 10-15-2022 End: 10-15-[address] Rosemary Doran Work Phone: [facility] Work Phone: Start: 09-26-2022 Non-patient / Non-visit Dr. Slim Doran Work Phone: [facility] Start: 09-26-2022 End: 09-26-[address] Rosemary Doran Work Phone: [facility] Work Phone: Start: 09-26-2022 End: 09-26-[address] Rosemary Doran Work Phone: [facility] [place] Work Phone: Start: 09-18-2022 End: 09-18-[address] Rosemary Doran Work Phone: [facility] Work Phone: Start: 09-18-2022 End: 09-18-[address] Rosemary Doran Work Phone: [facility] Start: 09-13-2022 End: 09-13-[address] Rosemary Doran Work Phone: [facility] Start: 09-08-2022 End: 09-08-2022 Emergency department patient visit Dr. Rosemary Doran Work Phone: [facility] Start: 09-06-2022 End: 09-06-[address] Rosemary Doran Work Phone: [facility] Start: 09-05-2022 End: 09-05-[address] [facility] Start: 08-08-2022 End: 08-08-[address] [facility] Start: 06-26-2022 End: 06-26-[address] Rosemary Doran Work Phone: [facility] Work Phone: Start: 06-26-2022 End: 06-26-[address] Rosemary Doran Work Phone: [facility] Start: 06-04-2022 End: 06-04-[address] Rosemary Doran Work Phone: [facility] Work Phone: Start: 06-04-2022 End: 06-04-[address] Rosemary Doran Work Phone: [facility] Start: 04-16-2022 End: 04-16-[address] Rosemary Doran Work Phone: [facility] Start: 02-11-2022 End: 02-11-2022 Emergency department patient visit Dr. Rosemary Doran Work Phone: [facility] Start: 10-18-2021 End: 10-18-[address] Rosemary Doran Work Phone: [facility] Start: 10-12-2019 End: 10-12-2019 Refill Jo Perez Work Phone: [facility] Comment on above: Refill Request; Refi ll Request Start: 02-11-2018 Patient encounter ROSA ELENA Cai lity:[facility] Start: 01-05-2018 End: 01-05-2018 Patient encounter JO PEREZ Facility:[facility] Start: 07-21-2017 End: 07-21-2017 Patient encounter RICKEYJacki CHAVARRIA Facility:[facility] Start: 07-15-2017 Patient encounter JO PEREZ Facility:[facility] Start: 07-07-2017 End: 07-07-2017 Patient encounter JO PEREZ Facility:[facility] Start: 06-27-2017 End: 06-27-2017 Patient encounter JO PEREZ Facility:[facility] Start: 06-11-2017 Patient encounter JO PEREZ Facility:[facility] Start: 02-01-2015 End: 02-01-2015 Patient encounter procedure Shi Davis Nickzheng Work Phone: [facility] Start: 02-01-2015 Results Only Shi Johansen liliana Work Phone: [facility] Start: 04-17-2010 End: 04-17-2010 Patient encounter procedure Cruz Juanjo Lippitt Work Phone: [facility] Start: 04-17-2010 Results Only Cruz Juanjo Vale ippitt Work Phone: [facility] Start: 07-31-2009 End: 07-31-2009 Patient encounter procedure Clotilde Doss Work Phone: [facility] Start: 07-31-2009 Results Only Clotilde Chase Hernandez rabec Work Phone: [facility] Start: 05-07-2001 End: 05-07-2001 Patient encounter procedure Sae H Astrid Work Phone: [facility] Start: 05-07-2001 Results Only Sae Arnett Pap as Work Phone: [facility] Procedures Date Procedure Procedure Detail Performing [...] quantitative blood xcpt reagent strip Connie Perez PIPE ASSEMBLY WORKER - SOCCER COMMENTATOR Work Phone: Start: 06-20-2023 Prothrombin time Meredi th Perez PIPE ASSEMBLY WORKER - SOCCER COMMENTATOR Work Phone: Start: 06-19-2023 Glucose quantitative blood xcpt reagent strip Connie Perez PIPE ASSEMBLY WORKER - SOCCER COMMENTATOR Work Phone: Start: 06-19-2023 Glucose quantitative blood xcpt reagent strip Connie Perez PIPE ASSEMBLY WORKER - SOCCER COMMENTATOR Work Phone: Start: 06-19-2023 Glucose quantitative blood xcpt reagent strip Connie Perez PIPE ASSEMBLY WORKER - SOCCER COMMENTATOR Work Phone: Start: 06-19-2023 Prothrombin time Meredi jovani Perez PIPE ASSEMBLY WORKER - SOCCER COMMENTATOR Work Phone: Start: 06-19-2023 Glucose quantitative blood xcpt reagent strip Connie Perez PIPE ASSEMBLY WORKER - SOCCER COMMENTATOR Work Phone: Start: 06-19-2023 Basic metabolic pane l calcium total Connie Perez PIPE ASSEMBLY WORKER - SOCCER COMMENTATOR Work Phone: Start: 06-18-2023 Glucose quantitative blood [...] metabolic pane l calcium total Connie Perez PIPE ASSEMBLY WORKER - SOCCER COMMENTATOR Work Phone: Start: 06-17-2023 Glucose quantitative blood [...] on above: Performed By: #### L [id number] ####Chemical Processor: ALEXANDRA BUSTAMANTE ([id number])[facility] ([facility])[address] [place] [address] Start: 06-16-2023 End: 06-16-2023 Radex shoulder complete [...] Start: 04-17-2010 CONVERTED SURGICAL PATHOLOGY Cruz Lemosvel Felicianohenny Work Phone: Start: 07-31-2009 CONVERTED SURGICAL PATHOLOGY [...] Activity Detail Author Start: 09-13-2024 Lamotrigine measurement [facility] Start: 09-13-2024 Measurement of substance [facility] Start: 09-11-2024 Patient discharge [facility] Start: 09-11-2024 Complete blood count [facility] Start: 09-10-2024 Following clinical p athway protocol [facility] Start: 09-10-2024 Transfusion of blood product [facility] Start: 09-10-2024 Aspiration precautions [facility] Start: 09-10-2024 Assessment of risk o f venous thromboembolism [facility] Start: 09-10-2024 Cardiac monitoring [facility] Start: 09-10-2024 Catheterization of vein [facility] Start: 09-10-2024 Consultation [facility] Start: 09-10-2024 Continuous pulse oximetry [facility] Start: 09-10-2024 Electroencephalogram [facility] Start: 09-10-2024 Elevation of head of bed [facility] Start: 09-10-2024 Exercises [facility] Start: 09-10-2024 Insertion of cathete r into peripheral vein [facility] Start: 09-10-2024 Notification of physician [facility] Start: 09-10-2024 Oxygen therapy [facility] Start: 09-10-2024 Patient referral to dietitian [facility] Start: 09-10-2024 Providing care accor ding to standard [facility] Start: 09-10-2024 Referral to occupati onal therapist [facility] Start: 09-10-2024 Referral to service [facility] Start: 09-10-2024 Speech therapy assessment [facility] Start: 09-10-2024 Telemedicine consult ation with patient [facility] Start: 09-10-2024 Tobacco use cessatio n education [facility] Start: 09-10-2024 Vital signs measurements [facility] Start: 09-10-2024 End: 09-10-2024 [facility] Start: 09-10-2024 Verification routine [facility] Start: 09-10-2024 MRI of brain without contrast Brain without Contrast [facility] Start: 09-10-2024 Admission procedure [facility] Start: 09-10-2024 [facility] Start: 09-10-2024 Bacteria identified in Urine by Culture Urine Culture [facility] Start: 09-10-2024 Urine culture [facility] Start: 09-10-2024 Oxygen therapy [facility] Start: 09-10-2024 [facility] Start: 09-08-2024 Lamotrigine measurement [facility] Start: 01-06-2024 Urine microalbumin profile DTA P,TDAP,TD (1 - Tdap) [facility] Comment on above: Postponed from 06/23 (Declined at this time) Start: 07-28-2023 ADVANCE DIRECTIVE DISCUSSION A DVANCE DIRECTIVE DISCUSSION [facility] Start: 06-16-2023 Application long arm splint shoulder hand APPLY LONG ARM SPLINT [facility] Start: 06-16-2023 [facility] Start: 03-31-2023 Medicare Advantage A nnual Wellness Visit Medicare Advantage Annual Wellness Visit [facility] Start: 01-20-2023 Serum immunofixation [facility] Start: 01-20-2023 Urine immunofixation [facility] Start: 12-28-2022 Patient discharge [facility] Start: 12-28-2022 [facility] Start: 12-27-2022 Following clinical p athway protocol [facility] Start: 12-27-2022 Assessment of risk o f venous thromboembolism [facility] Start: 12-27-2022 Catheterization of vein [facility] Start: 12-27-2022 Incentive spirometry [facility] Start: 12-27-2022 Inhalation therapy procedure [facility] Start: 12-27-2022 Insertion of cathete r into peripheral vein [facility] Start: 12-27-2022 Measuring intake and output [facility] Start: 12-27-2022 Neurological assessment [facility] Start: 12-27-2022 Providing care accor ding to standard [facility] Start: 12-27-2022 Provision of activit y privileges [facility] Start: 12-27-2022 Referral to occupati onal therapist [facility] Start: 12-27-2022 Referral to service [facility] Start: 12-27-2022 Speech therapy assessment [facility] Start: 12-27-2022 [facility] Start: 12-27-2022 Admission procedure [facility] Start: 11-15-2022 Patient discharge [facility] Start: 11-15-2022 Blood chemistry [facility] Start: 11-14-2022 Following clinical p athway protocol [facility] Start: 11-14-2022 Assessment of risk o f venous thromboembolism [facility] Start: 11-14-2022 Cardiac monitoring [facility] Start: 11-14-2022 Catheterization of vein [facility] Start: 11-14-2022 Continuous pulse oximetry [facility] Start: 11-14-2022 Elevation of head of bed [facility] Start: 11-14-2022 Exercises [facility] Start: 11-14-[address] anned interventions [facility] Start: 11-14-2022 Insertion of cathete r into peripheral vein [facility] Start: 11-14-2022 Measuring intake and output [facility] Start: 11-14-2022 MRI of brain without contrast Brain without Contrast [facility] Start: 11-14-2022 Notification of physician [facility] Start: 11-14-2022 Oxygen therapy [facility] Start: 11-14-2022 Patient referral to dietitian [facility] Start: 11-14-2022 Providing care accor ding to standard [facility] Start: 11-14-2022 Referral to occupati onal therapist [facility] Start: 11-14-2022 Referral to service [facility] Start: 11-14-2022 Speech therapy assessment [facility] Start: 11-14-2022 Tobacco use cessatio n education [facility] Start: 11-14-2022 [facility] Start: 11-14-2022 Verification routine [facility] Start: 11-14-2022 Admission procedure [facility] Start: 11-14-2022 Patient referral to dietitian [facility] Start: 09-18-2022 Patient referral [facility] Work Phone: Start: 09-18-2022 [place] and lambda light chains [facility] Start: 09-18-2022 Thiamine measurement [facility] Start: 09-17-2022 [facility] Start: 03-26-2020 Hepatitis B screening URINE ALBUMIN:CREATININE RATIO [facility] Start: 03-26-2020 Hepatitis B surface antibody level LDL CHOLESTEROL [facility] Start: 11-30-2019 Influenza vaccination INFLUENZA (#1) [facility] Start: 10-01-2019 [object Object] [facility] Start: 09-25-2019 HbA1c (Bld) [Mass fraction] HBA1C [facility] Start: 07-07-2018 Hepatitis C antibody , confirmatory test DILATED RETINAL EXAM [facility] Start: 07-20-2013 DTaP/Tdap/Td Vaccine s (1 - Tdap) DTaP/Tdap/Td Vaccines (1 - Tdap) [facility] Start: 12-05-2010 SHINGRIX VACCINE (2 of 3) CONTRERAS GRIX VACCINE (2 of 3) [facility] Start: 12-05-2010 Zoster Vaccines (2 of 3) Zoste r Vaccines (2 of 3) [facility] Start: 1995 RSV Immunization age d 60 or older (1 - 1-dose 60+ series) RSV Immunization aged 60 or older (1 - 1-dose 60+ series) [facility] Start: 1947 Depression Screening Depression Scre ening [facility] Start: 1935 Screening for osteoporosis Bone Dens ity Scan [facility] Albumin [Moles/volum e] in Serum or Plasma [facility] Albumin/Globulin ratio [facility] Anion gap in Serum or Plasma [facility] Anion gap measurement [facility] Ankle brachial pressure index [facility] Blood ammonia measurement [facility] Blood ammonia measurement [facility] BUN/Creatinine ratio [facility] BUN/Creatinine ratio [facility] Calcium [Mass/volume ] in Serum or Plasma [facility] Calcium [Mass/volume ] in Serum or Plasma [facility] Carbon dioxide, tota l [Moles/volume] in Central venous blood [facility] Carbon dioxide, tota l [Moles/volume] in Serum or Plasma [facility] Chloride [Moles/volu me] in Serum or Plasma [facility] Cholesterol [Mass/vo lume] in Serum or Plasma [facility] Cholesterol [Mass/vo lume] in Serum or Plasma [facility] Cholesterol in HDL [Mass/volume] in Serum or Plasma [facility] Cholesterol in HDL [Mass/volume] in Serum or Plasma [facility] Cholesterol in LDL [Mass/volume] in Serum or Plasma [facility] Creatinine [Mass/vol ume] in Serum or Plasma [facility] Creatinine [Moles/vo lume] in Serum or Plasma [facility] Electrophoresis: [id number] [facility] Electrophoresis: andrew ma globulin [facility] Erythrocyte mean cor puscular volume determination [facility] Globulin measurement [facility] Glucose [Mass/volume ] in Serum or Plasma [facility] Glucose [Mass/volume ] in Serum or Plasma [facility] Hematocrit [Volume F raction] of Blood [facility] Hematocrit [Volume F raction] of Blood [facility] Hemoglobin [Mass/vol ume] in Blood [facility] Hemoglobin [Mass/vol ume] in Blood [facility] IgA [Mass/volume] in Serum or Plasma [facility] IgG [Mass/volume] in Serum or Plasma [facility] IgM [Mass/volume] in Serum or Plasma [facility] [place]/lambda light c nat ratio [facility] Lambda light chains. free [Mass/volume] in Serum or Plasma [facility] Lamotrigine measurement [facility] Leukocytes [#/volume ] in Blood [facility] Leukocytes [#/volume ] in Blood [facility] Low density lipoprot ein cholesterol measurement [facility] Mean corpuscular hem oglobin concentration determination [facility] Mean corpuscular hem oglobin concentration determination [facility] Mean corpuscular hem oglobin determination [facility] Mean corpuscular hem oglobin determination [facility] Measurement of renal function [facility] Measurement of renal function [facility] MR Cervical spine [facility] MR Lumbar spine [facility] Neutrophil count [facility] Neutrophil percent differential count [facility] Patient Education [facility] Work Phone: Patient referral [facility] Work Phone: Platelets [#/volume] in Blood [facility] Platelets [#/volume] in Blood [facility] Potassium [Moles/vol ume] in Serum or Plasma [facility] Potassium measurement [facility] Protein electrophore sis panel - Serum or Plasma [facility] Red blood cell count [facility] Red blood cell count [facility] Red cell distributio n width determination [facility] Red cell distributio n width determination [facility] Serum chloride measurement [facility] Serum protein electrophoresis [facility] Sodium [Moles/volume ] in Serum or Plasma [facility] Sodium measurement [facility] Total cholesterol:HD L ratio measurement [facility] Triglycerides measurement [facility] Triglycerides measurement [facility] Troponin T.cardiac [Mass/volume] in Serum or Plasma by High sensitivity method [facility] Troponin T.cardiac [Mass/volume] in Serum or Plasma by High sensitivity method [facility] Urea nitrogen [Mass/ volume] in Serum or Plasma [facility] Urea nitrogen [Mass/ volume] in Serum or Plasma [facility] Urine culture Urine Culture [facility] Urine kappa light ch ain measurement [facility] US Carotid arteries [facility] VLDL cholesterol measurement [facility] VLDL cholesterol measurement [facility] Immunization Date Immunization Notes Care Provider Fa cility 06-02-2020 Covid (Moderna) Dr. Rosemary mixon Work Phone: [facility] 05-05-2020 Covid (Moderna) Dr. Rosemary mixon Work Phone: [facility] 04-27-2019 influenza, high dose seasonal, preservative-free Alexia Rashida [facility] 01-05-2018 influenza, high dose seasonal, preservative-free Alexia Adamsdonna [facility] 12-12-2014 influenza, seasonal, injectable Alexia Adamsdonna [facility] 06-15-2014 pneumococcal conjuga te vaccine, 13 valent Alexia Adamsdonna [facility] 12-06-2013 influenza, seasonal, injectable [facility] 07-19-2013 tetanus and diphther ia toxoids, adsorbed, preservative free, for adult use (2 Lf of tetanus toxoid and 2 Lf of diphtheria toxoid) Jo Lamasdonna [facility] 01-25-2013 influenza, seasonal, injectable Alexia Lishnnéstordonna [facility] 01-13-2012 influenza, seasonal, injectable [facility] 02-11-2011 influenza, seasonal, injectable [facility] 10-10-2010 zoster vaccine, live Jo Martinez [facility] 03-31-2006 pneumococcal polysaccharide vaccine, 23 valent Waldoia [facility] Payers Date Payer Category Payer Self-pay [id number] 2023 Medicare [employer] UHC AARP MEDICARE ADVANTAGE [id number] 2023-Present [phone] [address] [address] [place] [address] Medicare HMO [id number] 2023 Unknown [id number] 2005 Unknown [id number] .[id number] 1935 Unknown [id number] 2.16.840.1.340475.3.579.2.278 1935 Unknown [id number] 2.16.840.1.743715.3.579.2.278 1935 Unknown [id number] 2.16.840.1.865142.3.579.2.278 1935 Unknown [id number] 2.16.840.1.727659.3.579.2.278 1935 Unknown [id number] 2.16840.1.987984.3.579.2.278 1935 Unknown [id number] 2.16840.1.892005.3.579.2.278 1935 Unknown [id number] 2.840.1.161415.3.579.2.278 Medicare MEDICARE PART A B [id number] Unknown [id number] Unknown [id number] 2.16.840.1.041086.3.579.2.462 Unknown [id number] 2.16840.1.733069.3.579.2.462 Unknown [id number] 2.16840.1.451873.3.579.2.462 Unknown [id number] 2.16.840.1.543940.3.579.2.462 Unknown [id number] 2.16.840.1.626166.3.579.2.462 Unknown [id number] 2.16.840.1.392276.3.579.2.462 Unknown [id number] 2.16.840.1.162254.3.579.2.462 Unknown [id number] 2.16840.1.173752.3.579.2.462 Unknown [id number] 2.16.840.1.016465.3.579.2.462 Unknown [id number] 2.16.840.1.557316.3.579.2.462 Unknown [id number] 2.16.840.1.818784.3.579.2.462 Unknown [id number] 2.16.840.1.117629.3.579.2.462 Unknown [id number] 2.16.840.1.347076.3.579.2.462 Unknown [id number] 2.16.840.1.812607.3.579.2.462 Unknown [id number] 2.16.840.1.310238.3.579.2.462 Unknown [id number] 2.16.840.1.366539.3.579.2.462 Unknown [id number] 2.16.840.1.547369.3.579.2.462 Unknown [id number] 2.16.840.1.578981.3.579.2.462 Unknown [id number] 2.16.840.1.878042.3.579.2.462 Unknown [id number] 2.16.840.1.173878.3.579.2.462 Unknown [id number] 2.16.840.1.336458.3.579.2.462 Unknown [id number] 2.16.840.1.408078.3.579.2.462 Unknown [id number] 2.16.840.1.763764.3.579.2.462 Unknown [id number] 2.16.840.1.866427.3.579.2.462 Unknown [id number] 2.16.840.1.938585.3.579.2.462 Unknown [id number] 2.16.840.1.110484.3.579.2.462 Unknown [id number] 2.16840.1.647351.3.579.2.462 Unknown [id number] 2.16.840.1.230142.3.579.2.462 Unknown [id number] 2.16.840.1.681009.3.579.2.462 Unknown [id number] 2.16840.1.345705.3.579.2.462 Unknown [id number] 2.16840.1.558137.3.579.2.462 Unknown [id number] 2.16840.1.445480.3.579.2.462 Unknown [id number] 2.16840.1.321907.3.579.2.462 Unknown [id number] 2.840.1.769271.3.579.2.462 Unknown [id number] 2.840.1.830156.3.579.2.462 Unknown [id number] 2.840.1.968441.3.579.2.462 Unknown [id number] 2.840.1.862710.3.579.2.462 Unknown [id number] 2.16840.1.918362.3.579.2.462 Unknown [id number] 2.840.1.942467.3.579.2.462 Unknown [id number] 2.840.1.704127.3.579.2.462 Unknown [id number] 2.840.1.693166.3.579.2.462 Unknown [id number] 2.840.1.990163.3.579.2.462 Unknown [id number] 2.840.1.441688.3.579.2.462 Social History Date Type Detail Facility Start: 05-13-2019 End: 09-11-2024 Tobacco smoking status NHIS Former smoker [facility] End: 03-20-2008 History of tobacco use Current smoker [facility] End: 03-20-2008 History of tobacco use Cigarette Smoker [facility] Start: 05-13-2019 End: 06-17-2023 Cigarettes smoked current (pack per day) - Reported [facility] Start: 05-13-2019 End: 06-18-2023 Tobacco use and exposure Never used [facility] Start: 05-13-2019 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 (finding) [facility] Start: 1935 Sex Assigned At Not on file [facility] Exposure to SARS-CoV -2 (event) Not sure [facility] Start: 02-11-2022 End: 06-16-2023 Tobacco smoking status NHIS Unknown if ever smoked [facility] Start: 04-19-2020 Rare [facility] Start: 04-19-2020 None [facility] Start: 04-19-2020 Spouse/ Signif icant Other [facility] Start: 08-11-2020 Non-smoker [facility] Start: 1935 Sex Assigned At Female [facility] Start: 06-18-2023 Tobacco smoking stat us NHIS Never smoked tobacco [employer] Start: 06-17-2023 End: 06-18-2023 [facility] Distillities [employer] Has the [employer], hoopos[employer]com, or [employer] in my [employer]ocket (PRIMP) threatened to shut off services in your home in past 12Mo No [facility] How often to you hav e a drink containing alcohol? Never [facility] How many standard drinks containing alcohol do you have on a typical day? Patient does not drink [employer] (I/We) worried wheth er (my/our) food would run out before (I/we) got money to buy more. Never true [employer] Start: 06-04-2024 End: 07-20-2024 Sex Female (finding) [facility] Medical Equipment Procedure Code Equipment Code Equipment [...] instructed [employer] Cancellous 30cc 1-8 - [id number] - [id number] Start: 06-18-2023 Plate Hum Dist 2.7/3.5 83953_imp Start: 06-18-2023 Plate Va Olcrn 2.7/3.5 2h R - [id number]_imp Start: 06-18-2023 Plate Va M-D-Hum 2.7/3.5 1h L - [id number]_imp Start: 06-18-2023 Screw Lck Va 2.5e37g-A T8 Rcs - [id number]_imp Start: 06-18-2023 Screw Lck Va 2.7x58 S-T T8 Rcs - [id number]_imp Start: 06-18-2023 Screw Lck Va 2.8q18c-N T8 Rcs - [id number]_imp Start: 06-18-2023 Screw Lck Va 2.0d56r-Z T8 Rcs - [id number] 83967_imp Start: 06-18-2023 Screw Lck Va 2.4k54h-R T8 Rcs - [id number] 83968_imp Start: 06-18-2023 Screw Lck Va 2.7x50 S-T T8 Rcs - [id number]_imp Start: 06-18-2023 Screw Crtx 3.5x22mm S-T - [id number]_imp Start: 06-18-2023 Screw Crtx 3.5x26mm S-T - [id number]_imp Start: 06-18-2023 Screw Lck Va 2.9v60d-J T8 Rcs - [id number] 83975_imp Start: 06-18-2023 Screw Lck Va 2.8y78j-N T8 Rcs - [id number] 83976_imp Start: 06-18-2023 Screw Lck Va 2.7x56 S-T T8 Rcs - [id number] 83956_imp Start: 06-18-2023 Screw Crtx 3.5x28mm S-T - [id number] 83957_imp Start: 06-18-2023 Screw Crtx 3.5x30mm S-T - [id number]_imp Start: 06-18-2023 Screw Lck Va 2.6j20r-X T8 Rcs - [id number] 83959_imp Start: 06-18-2023 Screw Lck Va 2.6h85e-U T8 Rcs - [id number] 83961_imp Start: 06-18-2023 Goals Date Patient Goal Desired Activity /State Functional Status Date Assessment Result Facility 09-11-2024 Functional status Ambulates [facility] Work Phone: 12-28-2022 Functional status [facility] Work Phone: 11-15-2022 Functional status Chair [facility] Work Phone: Mental Status Date Assessment Result Facility 09-11-2024 Cognitive function Voice/Name [facility] Work Phone: 09-10-2024 Cognitive function Voice/Name [facility] Work Phone: 09-08-2024 Cognitive function Voice/Name [facility] Work Phone: 12-28-2022 Cognitive function Voice/Name [facility] Work Phone: 11-18-2022 Cognitive function Level Of Cons ciousness Awake;Alert;Appropriate [facility] Work Phone: 11-15-2022 Cognitive function Appropriate;Cooperativ e [facility] Work Phone: 11-14-2022 Cognitive function Voice/Name [facility] Work Phone: 11-14-2022 Cognitive function Voice/Name [facility] Work Phone: 09-08-2022 Cognitive function Awake;Alert;A ppropriate;Follow s Commands [facility] Work Phone: 02-11-2022 Cognitive function Awake;Alert;Appropriat e [facility] Work Phone: Clinical Notes 02-14-2007 to 09-11-2024 Note Date & Type Note Facility 09-11-2024 Discharge summary [facility] 09-11-2024 Procedure note [facility] 09-11-2024 Discharge summary [facility] 09-11-2024 Discharge summary Note Date/Time September 11, 2024 2:40pm [facility] Medical Records Department [address] [place] [address] Instructions for Home/Discharge Instructions 09/11/24 1214 MR#: [id number] Acct: [id number] Name: EZRA GONZALEZ Rep #:[id number] : 1935 89 From: Matthew carbajal DO PCP: Dr. Kvng Ochoa, DO Status:ADM ZHENG Discharge Instructions Diet Discharge Diet: No restrictions [...] Diop MD; Dr. Rubén Michel DO; Dr. iLz Valdes MD; Dr. Iggy Graves MD; Dr. Castillo Jones MD; Dr. Kvng Ochoa DO; Dr. Daniel Leroy MD; Dr. Cindy Horn MD; Meagan Edmondson MD; Keyshawn Swan MD; Cara Batista DO; Robinson Mayorga MD; Aura Thurman DO; Ashu Leonard MD ~ [facility] Work Phone: 1(129) 301-644906-14-2025 Discharge summary Author [facility] Note Date/Time September 11, 2024 3:14 pm [facility] Medical Records Department [address] [place] [address] Discharge Summary 09/11/24 1214 MR#: [id number] Acct: [id number] Name: EZRA GONZALEZ Rep #:[id number] : 1935 89 From: Matthew carbajal DO PCP: Dr. Kvng Ochoa DO Status:ADM ZHENG Location: [facility] [id number]- 1 Providers Date of Admission: 09/10/24 Date [...] is an 89-year-old female who presented to [facility] ED on 09/10/2024 with dysarthria. 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 Kvng Ochoa DO ~* Signed [facility] Work Phone: 1(161) 918-867706-14-2025 Progress note Author Leninmiguel Tamez [facility] Note Date/Time September 11, 2024 10:4 1am [facility] Medical Records Department [address] [place] [address] Progress Note - Neurology 09/11/24 1035 MR#: [id number] Acct: [id number] Name: EZRA GONZALEZ Rep #:[id number] : 1935 89 From: Lenin Morel PCP: Dr. Kvng Ochoa DO Status:ADM ZHENG Location: [place] [address] Assessment and Plan: Neuro Assessment/Plan Telestroke (Audio/Video Encounter) 89 y/o woman with h/o DM, HTN, Afib on coumadin (INR 2 days ago was 2.9 and 2.4 at [facility]) and seizure on lamictal (had last GTC on Friday) p/w transient dysarthria. History is obtained from patient. On my exam, NIHSS-0 and patient reports feeling better. She follows with Dr. Juarez with neurology. CT head- no acute intracranial process. CTA- no LVO with b/l ICA 60% and diffuse narrowing of left SENIOR DESIGNER/ART DIRECTOR. MRI brain - no acute stroke. LDL-100 Diagnosis: TIA Plan: Continue coumadin and statin. Check A1c. Follow up EEG. Continue lamictal.Follow up with neurology as an outpatient. OT/PT/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 REPRESENTATIVE. Sign off for now and please call [...] days ago was 2.9 and 2.4 at [facility]) and seizure on lamictal (had last GTC on Friday) p/w transient dysarthria. History is obtained from patient. On my exam, NIHSS-0 and patient reports feeling better. She follows with Dr. Juarez with neurology. CT head- no acute intracranial process. CTA- no LVO with b/l ICA 60% and diffuse narrowing of left SENIOR DESIGNER/ART DIRECTOR. MRI brain - no acute stroke. Today, [...] (Auto) 72.3 H, Lymph % (Auto) 16.6 L,Carroll % (Auto) 9.1, Eos % (Auto) 1.2, [...] Clarity Clear, Urine pH 5.0, Ur Specific [place] 1.010, Urine Protein 30 H, Urine Glucose [...] Catch Urine Culture - Preliminary GNR lactose teacher drama Radiography Diagnostic Testing: Radiology Impression Brain CT 09/10/24 13:55 IMPRESSION: CHRONIC CHANGES. NO ACUTE FINDINGS. Red Alert: Chronic changes. The critical information above was relayed directly by me by telephone to Teri Garcia on 09/10/2024 at 2:05 pm with readback verification. Reading Location: [id number] Head/Neck CTA 09/10/24 13:55 IMPRESSION: Calcific plaque [...] changes Reading Location[facility] Rhythm Strip Rhythm Strip: A-fib Rate: 75 [...] and with change in RN caregiver. Freq: [id number] Protocol: Activity Type Activity Date Activity User E-sign Co-sign Detail Recorded Client Recorded Date Recorded By Document 09/11/24 09:08 YOVANY [id number] 09/11/24 09:08 TerenceTerenceLulú 09/11/24 09:08 NIH Stroke Scale [NIHSS] A [...] Cosigner Signature (if applicable): CC: ~ Signed [facility] Work Phone: 1(754) 218-775406-14-2025 [facility] Medical Records Department [address] [place] [address] Discharge Summary 09/11/24 1214 MR#: [id number] Acct: [id number] Name: EZRA GONZALEZ Rep #: [id number] : 1935 89 From: Matthew Oro DO PCP: Dr. Kvng Ochoa DO Status:ADM ZHENG Location: [place] [address]1 Providers Date of Admission: 09/10/24 Date of Discharge: 09/11/24 Primary Care Physician: Dr. Kvng Ochoa DO Consultations 09/10/24 17:16 Consult: Tele-Neurology Routine Consulting Provider: [facility] Reason for Consult: Acute Ischemic Stroke/TIA EMERGENT Consult: No Notified: Yes Date Notified: 09/10/24 Time Notified: [...] is an 89-year-old female who presented to [facility] ED on 09/10/2024 with dysarthria. Short hospital [...] and non- distended Anastasia (more content not included)...[facility]06-14-2025 Progress note [facility] Medical Records Department [address] [place] [address] Progress Note - Neurology 09/11/24 1035 MR#: [id number] Acct: [id number] Name: LISAEZRAADAM TRUONG Rep #:[id number] : 1935 From: Lenin Morel PCP: Dr. Kvng Ochoa, DO Status:ADM ZHENG Location: [address] 1 Assessment and Plan: Neuro Assessment/Plan Telestroke (Audio/Video [...] ICA 60% and diffuse narrowing of left SENIOR DESIGNER/ART DIRECTOR. MRI brain - no acute stroke. LDL-100 Diagnosis: TIA Plan: Continue coumadin and statin. Check A1c. Follow up EEG. Continue lamictal.Follow up with neurology as an outpatient. OT/PT/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 REPRESENTATIVE. Sign off for now and please call [...] days ago was 2.9 and 2.4 at [facility]) and seizure on lamictal (had last GTC on Friday) p/w transient dysarthria. History is obtained from patient. On my exam, NIHSS-0 and patient reports feeling better. She follows with Dr. Juarez with neurology. CT head- no acute intracranial process. CTA- no LVO with b/l ICA 60% and diffuse narrowing of left SENIOR DESIGNER/ART DIRECTOR. MRI brain - no acute stroke. 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 Freq: [id number] Protocol: Activity Type Activity Date Activity User E-sign Co-sign Detail Recorded Client Recorded Date Recorded By Document 09/11/24 09:08 YOVANY [id number] 09/11/24 09:08 YOVANY 09/11/24 09:08 NIH Stroke [...] Cosigner Signature (if applicable): CC: ~ Signed [facility]06-13-2025 History and physical note Author Matthew Oro [facility] Note Date/Time September 10, 2024 5:27 pm [facility] Medical Records Department [address] [place] [address] H&P Exam - Hospitalist 09/10/24 1603 MR#: [id number] Acct: [id number] Name: EZRA GONZALEZ ALEXI Rep #:[id number] : 1935 89 From: Matthew carbajal DO PCP: Dr. Kvng Ochoa, DO Status:ADM ZHENG Location: [place] [address] HPI - General General Date of Admission: 09/10/24 Date of Service: 09/10/24 Chief Complaint: Dysarthria HPI Narrative EZRA GONZALEZ, is a 89 F who presented to [facility] ED on 09/10/2024 with dysarthria. Patient lives at assisted living at [place]. Has history of seizures and is on [...] any other acute concerns at this time. 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 Reading Location: [id number] Head/Neck CTA 09/10/24 13:55 IMPRESSION: Calcific plaque [...] 3:01 pm with readback verification. Reading Location: [id number] Assessment & Plan Assessment/Plan (1) Difficulty with speech: PLAN: Plan Patient is an 89-year-old female who presented to [facility] ED on 09/10/2024 with dysarthria. 1. Episode [...] 55 minutes. Charges/Coding Visit Charges Inpatient E&M: 16454 Init Hosp L2 09/10/24 1727 <Electronically signed by Matthew Oro DO> Cosigner Signature (if applicable): CC: Dr. Matthew Oro DO; Dr. Kvng Ochoa DO~ Signed [facility] Work Phone: 1(281) 644-219706-13-2025 Discharge summary Author Teri Garcia [facility] Note Date/Time September 10, 2024 4:17 pm [facility] Medical Records Department [address] [place] [address] Emergency Department Summary 09/10/24 MR#: [id number] Acct: [id number] Name: EZRA GONZALEZ Rep #:[id number] : 1935 89 From: Teri Echeverria PCP: [...] son Wilfredo (her eldest son) phone number [phone]. He states that she follows with Dr. 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 He also tells me that he talk to her about 615 this morningand she seemed a little off with her mentation as well as her pronunciation. 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 Reading Location: [id number] Head/Neck CTA 09/10/24 13:55 IMPRESSION: Calcific plaque [...] 3:01 pm with readback verification. Reading Location: [id number] Rhythm Strip Rhythm Strip: A-fib Rate: 75 Ectopy: None EKG Initial EKG: Attestation: I personally reviewed and interpreted this EKG as follows: Interpretation: Atrial Fibrillation Comments: Atrial fibrillation at a rate of 75 bpm Left axis deviation Moderate voltage criteria for LVH Normal ST segments Management Discussion w/another healthcare provider: Hospitalist, Cotton Opener and Radiologist Discharge Plan Triage Chief Complaint: Stroke Alert ED Provider: Teri Garcia Dx/Rx/DC Orders Clinical Impression: Difficulty with speech, long term care pharmacist current use of anticoagulant, Atrial fibrillation, chronic, [...] DO [Primary Care Provider] - Print Language: [place] Disposition Disposition: Acute Care Hospital [facility] NIHSS NIHSS 1a. Level of Consciousness: [...] No aphasia; normal 10. Dysarthria: 1 = Hyfn-mg-isgqtfga dysarthria; 11. Extinction and Inattention: 0 - [...] your Primary Care Provider. Call [facility] ([phone]) or report to the closest Emergency Room. Call 911 if necessary. 09/10/24 1617 <Electronically signed by Teri Garcia DO> Cosigner Signature (if applicable): CC: Dr. Kvng Ochoa DO ~ Signed [facility] Work Phone: 1(965) 486-974206-13-2025 History and physical note [facility] Medical Records Department [address] [place] [address] H&P Exam - Hospitalist 09/10/24 1603 MR#: [id number] Acct: [id number] Name: LISAEZRAADAM TRUONG Rep #:[id number] : 1935 89 From: Matthew carbajal DO PCP: Dr. Kvng Ochoa DO Status:ADM ZHENG [facility] - General General Date of Admission: 09/10/24 Date of Service: 09/10/24 Chief Complaint: Dysarthria HPI Narrative EZRA GONZALEZ, is a 89 F who presented to [facility] ED on 09/10/2024 with dysarthria. Patient lives at assisted living at [place]. Has history of seizures and is on [...] any other acute concerns at this time. 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 1. Episode [...] 55 minutes. Charges/Coding Visit Charges Inpatient E&M: 94887 Init Hosp L2 09/10/24 6242 Cosigner Signature (if applicable): CC: Dr. Matthew Oro DO; Dr. Kvng Ochoa DO~ Signed [facility]06-13-2025 Discharge summary [facility] Medical Records Department [address] [place] [address] Emergency Department Summary 09/10/24 MR#: [id number] Acct: [id number] Name: EZRA GONZALEZ Rep #:[id number] : 1935 89 From: Teri Echeverria PCP: [...] son Wilfredo (her eldest son) phone number [phone]. He states that she follows with Dr. 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 He also tells me that he talk to her about 615 this morningand she seemed a little off with her mentation as well as her pr onunciation. 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 Reading Location: [id number] Head/Neck CTA 09/10/24 13:55 IMPRESSION: Calcific plaque [...] 3:01 pm with readback verification. Reading Location: [facility] Rhythm Strip Rhythm Strip: A-fib Rate: 75 Ectopy: None EKG Initial EKG: Attestation: I personally reviewed and interpreted this EKG as follows: Interpretation: Atrial Fibrillation Comments: Atrial fibrillation at a rate of 75 bpm Left axis deviation Moderate voltage criteria for LVH Normal ST segments Management Discussion w/another healthcare provider: Hospitalist, Cotton Opener and Radiologist Discharge Plan Triage Chief Complaint: Stroke Alert ED Provider: Teri Garcia Dx/Rx/DC Orders Clinical Impression: Difficulty with speech, FDC current use of anticoagulant, Atrial fibrillation, chronic, [...] DO [Primary Care Provider] - Print Language: [place] Disposition Disposition: Acute Care Hospital [facility] NIHSS NIHSS 1a. Level of Consciousness: [...] No aphasia; normal 10. Dysarthria: 1 = Ieyz-au-ngmzgkbr dysarthria; 11. Extinction and Inattention: 0 - [...] your Primary Care Provider. Call [facility] ([phone]) or report tothe closest Emergency Room. Call 911 if necessary. 09/10/24 1617 Cosigner Signature (if applicable): CC: Dr. Kvng Ochoa DO ~ Signed [facility]06-13-2025 Radiology Diagnostic study note [facility] Imaging Services [address] [place], [place] [id number] STROKE CTA Head AND Neck W/Con MR#: [id number] Acct: [id number] Name: EZRA GONZALEZ Rep #: [id number] : 1935 F 89 From: Jian Gipson MD PCP: Dr. Kvng Ochoa, DO Status: REG ER Study:STROKE CTA Head AND Neck W/Con Date of Exam: 09/10/24 Exam# [id number] Ordering Dr: Adeel Garcia DO PROCEDURE: STROKE [...] RIGHT Vertebral: Unremarkable. LEFT Vertebral: Unremarkable. Anatomy: [place] anatomy is normal. Aneurysm or [...] 3:01 pm with readback verification. Reading Location: [facility] CC: Dr. Teri Garcia DO; Dr. Kvng Ochoa DO ~ Planning Division Superintendent: Signed [facility] [place] Radiology Diagnostic study note [facility] Imaging Services [address] [place], [place] [address] STROKE Brain/Head without Cont MR#: [id number] Acct: [id number] Name: EZRA GONZALEZ Rep #: [id number] : 1935 F 89 From: Jian Gipson MD PCP: Dr. Kvng Ochoa DO Status: REG ER Study:STROKE Brain/Head without Cont Date of Exam: 09/10/24 Exam# [id number] Ordering Dr: Adeel Garcia DO PROCEDURE: STROKE [...] 2:05 pm with readback verification. Reading Location: [id number] CC: Dr. Teri Garcia DO; Dr. 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 Glucose is slight [id number] with a normal CO2 anion gap. Labs: Laboratory Results - last 24 hr 09/08/24 12:50 WBC 13.6 H RBC 4.40 Hgb 13.8 Hct 41.4 MCV 94.1 MCH 31.4 MCHC 33.3 RDW Std Deviation 45.2 H RDW Coeff of Sumeet 13.2 Plt Count 326 MPV 10.8 Immature Gran % (Auto) 0.400 Neut % (Auto) 75.9 H Lymph % (Auto) 16.2 L Carroll % (Auto) 6.6 Eos % (Auto) 0.7 [...] with her neurologist Dr. Juarez Print Language: Sierra Leonean Disposition Disposition: Home, Self Care What to do if you have Problems For any increased pain, shortness of breath, bleeding, nausea or vomiting, chestpain, or any unexpected problems, contact your Primary Care Provider. Call [facility] ([phone]) or report tothe closest Emergency Room. Call 911 if necessary. 09/08/24 1516 Cosigner Signature (if applicable): CC: Dr. 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 Baddour Print Language: [place] Leonean Disposition Disposition: Home, Self Care What to do if you have Problems For any increased pain, shortness of breath, bleeding, nausea or vomiting, chestpain, or any unexpected problems, contact your Primary Care Provider. Call [facility] ([phone]) or report to the closest Emergency Room. Call 911 if necessary. 09/08/24 1516 <Electronically signed by Anoop Blackmon MD> Cosigner Signature (if applicable): CC: Dr. Kvng Ochoa MD ~ Signed [facility] [place] Work Phone: 1(954) 511-971204-03-2025 Evaluation note* Diagnosis Onset Date Resolution Status Admit Date Longstanding persistent atrial fibrillation acute July 01 10:35am Essential (primary) hypertension chronic July 01, 2024 10:35am History of coronary artery stent placement February 14, 2007 resolved July 01 10:35am [facility] [place] Work Phone: 1(184) 607-139004-03-2025 Evaluation note* Diagnosis Onset Date Resolution Status Admit Date Longstanding persistent atrial fibrillation acute July 01 10:35am Essential (primary) hypertension chronic July 01, 2024 10:35am History of coronary artery stent placement February 14, 2007 resolved July 01 10:35am Difficulty with speech acute [facility] 2024 4:03pm [facility] [place] Work Phone: 1(768) 779-541404-03-2025 Evaluation note* Diagnosis Onset Date Resolution Status Admit Date Longstanding persistent atrial fibrillation acute July 01 10:35am Essential (primary) hypertension chronic July 01, 2024 10:35am History of coronary artery stent placement February 14, 2007 resolved July 01 10:35am Difficulty with speech acute ne 2024 4:03pm 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 2:04pm [facility] Work Phone: 1(812) 597-332804-03-2025 Evaluation note* Diagnosis Onset Date Resolution Status Admit Date Longstanding persistent atrial fibrillation acute July 01 10:35am Essential (primary) hypertension chronic July 01, 2024 10:35am History of coronary artery stent placement February 14, 2007 resolved July 01 10:35am Difficulty with speech resolved Ju ne 2024 4:03pm 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 2:04pm [facility] [place] Work Phone: 1(777) 512-783502-10-2025 Evaluation note* Diagnosis Onset Date Resolution Status Admit Date Dementia acute May 10, 2024 2:34pm Epilepsy acute May 10, 2024 2:34pm Transient ischemic attack resolved May 10, 2024 2:34pm [facility] [place] Work Phone: 1(466) 449-538402-10-2025 Evaluation note* Diagnosis Onset Date Resolution Status Admit Date Dementia acute May 10, 2024 2:34pm 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 Patient offered choice of available HHC and agreeable to PT/OT services with [facility] - Home Care. Care Types: [...] is noted as yes - consider a OIL FIELD TESTER evaluation once the patient returns home. START PATIENT REGISTRATION INFORMATION Order Information Order Signing Physician: Connie Perez APRN * Service Ordered RN ?: No Service Ordered PT ?: Yes Service Ordered OT ?: Yes Service Ordered ST ?: No Service Ordered OIL FIELD TESTER?:No Service Ordered PROSTHETICS LAB TECHNICIAN?: No Following Physician: ALEXANDRA HAGEN Following Physician Overseeing Physician: ALEXANDRA HAGEN (Required for Residents only) Agreeable to Follow? No Date/Time of Call 06/20/23 2:40 PM, Spoke with: LVM FOR OFFICE-CONFIRMED WITH JOSEP THIS IS HER PHYSICAN AND CAN SEE RECENT NOTES IN EPIC Care Coordination Same Day SOC?: No Primary Care Physician: ALEXANDRA HAGEN Primary Care Physician Primary Care Physician Address: [address] / [facility] [address] Visit Instructions: N/A Service Discharge Location Type: Assisted Living Service Facility Name: [facility] Service Floor Facility: N/A Service Room No: 105 Demographics Patient Last Name: Lisa Patient First Name: Ezra Language/Communication Barrier: NONE Service Address: [address] [facility] [address] Service City: [facility] ST: [place] Service ZIP: [address] Service (home) Other phone numbers: No relevant phone numbers on file. Emergency Contact: Extended Emergency Contact Information Primary Emergency Contact: BereketPatito Mobile Relation: Son Drain Cleaner needed? No Secondary Emergency Contact: GillesrodrigueTy Mobile Relation: Son Admission Information Admit Date: 06/16/2023 Patient status at discharge: Inpatient Admitting Diagnosis: Closed displaced fracture of medial condyle of right humerus, initial encounter [S42.464E] Caregiver Information Caregiver First Name: NA Caregiver Last Name: NA Caregiver Relationship to Patient NA Caregiver Phone Number: NA Caregiver Notes: N/A [employer] List No END PATIENT REGISTRATION INFORMATION Pt [...] medications. Discharge Date: 06/20/23 Referral Source-PACC: (Hospital/Unit): [facility] / [id number] A End PACC [facility]03-22-2024 History of Present illness Narrative* Juanjo Villalba RN - 06/20/2023 3:51 PM EDT Dc via DM cot to [place] with all belongings * Juanjo Villalba RN - 06/20/2023 3:01 PM EDT Called report to Maryanne sage * Dc Lombardi - 06/20/2023 2:26 PM EDT [facility] Anticoagulation Management Service (RIA) Inpatient Warfarin Consult HPI: Ezra Gonzalez is a 87 y.o. female admitted on 06/16/2023 for Closed displaced fracture of medial condyle of right humerus, initial encounter [S42.945X] History reviewed. No pertinent past medical history. [...] patient can be classified as high risk ([id number] = 8). 2. Monitor for s/s of bleeding and drug interactions. Will adjust dose accordingly 3. RIA will manage while inpatient Dc Lombardi, PharmD Candidate Jp BolanosD, BCPS RIA is available daily [phone] via [employer]. If no response on Med[employer] Chat then please page [phone]. * Shayne Fonseca MD - 06/20/2023 6:05 [...] off at this time. Please page resident instructional supervisor on Secure Chat with concerns or [...] original note were not included. PHYSICAL THERAPY [facility] Initial Evaluation Name/MRN: Ezra Gonzalez ([id number]) Evaluation Date: 06/19/2023 Date of : 1935 Admission Date: 06/16/2023 1:38 PM Age: 87 y.o. Room/Bed: [facility]707/[facility] A Discharge Recommendation: Home with Home health PT (return to [place]) Equipment Needed: No Assessment IMPRESSION: 87 y.o. pt admitted to [facility] for closed fracture RUE, s/p ORIF R humerus 06/17. They were Min A for bed mobility, Min A for transfers, and Min A for ambulation. Pt limited d/t balance. If from [place] where she can receive Min A for all ADLs and mobility. Would recommend return to [place] and [facility] PTat discharge. Diagnosis: closed fracture RUE, [...] correction Ambulation Ambulation 1 Assistive device(s) used: PROSTHETICS LAB TECHNICIAN Assist level: Min Assist Distance (ft): 15' [...] Mobility Raw Score (No Stairs) : 18 [facility] Score: Walked 25 ft or more [...] of Care supervision is transferred to a [facility] Therapy Services Physical Therapist. Goals and/or treatment plan was established in collaboration with patient/family/other representatives. * Enedelia Sanches [facility] - 06/19/2023 1:50 PM EDT [facility] Anticoagulation Management Service (RIA) Inpatient Warfarin Consult HPI: Ezra Gonzalez is a 87 y.o. female admitted on 06/16/2023 for Closed displaced fracture of medial condyle of right humerus, initial encounter [S42.996Q] History reviewed. No pertinent past medical history. [...] patient can be classified as high risk ([id number] = 8). 2. Monitor for s/s of bleeding and drug interactions. Will adjust dose accordingly 3. RIA will manage while inpatient Dc Lombardi, PharmD Candidate Jp BolanosD, BCPS RIA is available daily [phone] via [employer]. If no response on Medmonk Chat then please page [phone]. * Kavon Diallo OT - 06/19/2023 11:54 AM EDT Images from the original note were not included. OCCUPATIONAL THERAPY [facility] Initial Evaluation Name/MRN: Ezra Gonzalez ([id number]) Evaluation Date: 06/19/2023 Date of : 1935 Admission Date: 06/16/2023 1:38 PM Age: 87 y.o. Room/Bed: E7707/[facility]709 A Discharge Recommendation: Continue to assess pending [...] of Care supervision is transferred to a [facility] Therapy Services Occupational Therapist. Goals and/or treatment plan was established in collaboration with patient/family/other representatives. * Connie Perez APRN - SOCCER COMMENTATOR - 06/19/2023 9:52 AM EDT Images from the original note were not included. Hospitalist Progress Note 06/19/2023 Subjective: Admit Date: 06/16/2023 PCP: No primary care provider on file. Room#: N5-280/R3-134 A BRIEF HOSPITAL COURSE: Ezra is a [...] Emergency Contact: Patito [place] Mobile Relation: Son Drain Cleaner needed? No Secondary Emergency Contact: Ty [place] Mobile Relation: Son JANNETTE Hall CNP Division of Hospitalist Medicine Acute [facility] * Huma Tavarez MD - 06/19/2023 [...] be monitored and followed by the diet transportation engineering technician. Ele Butcher DT * Louisa Cespedes OT - 06/18/2023 8:26 AM EDT Images from the original note were not included. OCCUPATIONAL THERAPY [facility] Name/MRN: Ezra Gonzalez ([id number]) Date: 06/18/2023 OT eval and treat order received. Patient chart reviewed. Per Ortho note, "Plan for ORIF od R distal humerus." Will hold evaluation till after surgery. Louisa Cespedes OT * Connie Perez, JANNETTE - SOCCER COMMENTATOR - 06/18/2023 8:00 AM EDT Images from the original note were not included. Hospitalist Progress Note 06/18/2023 Subjective: Admit Date: 06/16/2023 PCP: No primary care provider on file. Room#: 707/-789 A BRIEF HOSPITAL COURSE: Ezra is a [...] Emergency Contact: Patito [place] Mobile Relation: Son Drain Cleaner needed? No Secondary Emergency Contact: Ty [place] Mobile Relation: Son JANNETTE Hall CNP Division of Hospitalist Medicine [facility] * Maryanne Neumann, PT - 06/18/2023 7:27 AM EDT Images from the original note were not included. PHYSICAL THERAPY [facility] Name/MRN: Ezra Gonzalez ([id number]) Date: 06/18/2023 PT orders received and chart [...] Orthopaedic Surgery, PGY-5 x2380 * Connie Perez, PIPE ASSEMBLY WORKER - SOCCER COMMENTATOR - 06/17/2023 7:46 AM EDT Images from [...] Emergency Contact: Patito [place] Mobile Relation: Son Drain Cleaner needed? No Secondary Emergency Contact: Ty [place] Mobile Relation: Son Connie JANNETTE Perez CNP [facility] * Shayne Fonseca MD - 06/17/2023 6:11 [...] + AIN/PIN/ulnar nerve functions documented in this [facility]03-22-2024 Miscellaneous Notes* Care Coordination - Unknown Case Management - 06/20/2023 2:58 PM EDT Patient Choice Patient Name: EZRA GONZALEZ Date of : 1935 All Providers Sent Referral Name: [facility] Phone: [phone] Address: [address] [place] [address] * Home Care - Vivian Bills RN - 06/20/2023 2:40 PM EDT Start PACC Note Home Health Referral Educated patient on Home Care and services available. Patient offered choice of available HHC and agreeable to PT/OT services with [facility] - Home Care. Care Types: [...] is noted as yes - consider a OIL FIELD TESTER evaluation once the patient returns home. START PATIENT REGISTRATION INFORMATION Order Information Order Signing Physician: Connie Perez APRN * Service Ordered RN ?: No Service Ordered PT ?: Yes Service Ordered OT ?: Yes Service Ordered ST ?: No Service Ordered OIL FIELD TESTER?:No Service Ordered PROSTHETICS LAB TECHNICIAN?: No Following Physician: ALEXANDRA HAGEN Following Physician Overseeing Physician: ALEXANDRA HAGEN (Required for Residents only) Agreeable to Follow? No Date/Time of Call 06/20/23 2:40 PM, Spoke with: BRYAN FOR OFFICE-CONFIRMED WITH JOSEP THIS IS HERPHYSICAN AND CAN SEE RECENT NOTES IN [facility] Care Coordination Same Day SOC?: No Primary Care Physician: ALEXANDRA HAGEN Primary Care Physician Primary Care Physician Address: [address] [place] [address] [address] / [place] [phone] Visit Instructions: N/A Service Discharge Location Type: Assisted Living Service Facility Name: [facility] Service Floor Facility: N/A Service Room No: 105 Demographics Patient Last Name: Lisa Patient First Name: Ezra Language/Communication Barrier: NONE Service Address: [address] [place] [address] [address] Service City: [facility] [address]: [place] Service ZIP: [address] Service (home) Other phone numbers: No relevant phone numbers on file. Emergency Contact: Extended Emergency Contact Information Primary Emergency Contact: Patito [place] Mobile Relation: Son Drain Cleaner needed? No Secondary Emergency Contact: Ty [place] Mobile Relation: Son Admission Information Admit Date: 06/16/2023 Patient status at discharge: Inpatient Admitting Diagnosis: Closed displaced fracture of medial condyle of right humerus, initial encounter [S42.461A] Caregiver Information Caregiver First Name: NA Caregiver Last Name: NA Caregiver Relationship to Patient NA Caregiver Phone Number: NA Caregiver Notes: N/A [employer] List No END PATIENT REGISTRATION INFORMATION Pt [...] medications. Discharge Date: 06/20/23 Referral Source-PACC: (Hospital/Unit): [facility] / [id number] A End PACC Note * [...] pt order lunch. 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 . * Care Coordination - Shikha Gray RN - 06/20/2023 11:01 AM EDT I SPOKE WITH DONOVAN, ROLL [facility] AT [facility]. THEY CAN TAKE PT BACK TODAY. THEY CAN PROVIDE TRANSPORTATION BACK TO FACILITY AROUND 3 PM. AWARE PT WILL NEED PT AT FACILITY, THEY USE [facility], DID LET HC LIAISON NOW. [...] PM EDT Date: 06/16/2023 - 06/18/2023 Location: [facility] OR Name: Ezra Gonzalez, : 1935, Diagnosis Pre-op Diagnosis * Closed displaced fracture of medial condyle of right humerus, initial encounter [S42.461A] Post-op Diagnosis * Closed displaced fracture of medial condyle of right humerus, initial encounter [S42461E] Procedures OPEN REDUCTION INTERNAL FIXATION RIGHT DISTAL HUMERUS 02316 - MD OPTX HUMERAL SHFT FX W/PLATE/SCREWS W/WOCERCLAGE Surgeons * Benitez Givens - Primary Procedure Summary Anesthesia: * No anesthesia type entered * ASA: III Estimated Blood Loss: Minimal Drains: * None in log * Staff: Blind Eyeletter: Vivian Herrera RN Scrub Person: Linda Alvarez [...] Limits Permission given to speak with patient medical center representative/caregiver as indicated: No Confirmation of Payer with patient/family: Yes Payer Name: [facility] : No Confirmation of Primary Care [...] rest and pain control documented in this [facility]03-22-2024 Note* Care Coordination - Unknown Case Management - 06/20/2023 2:58 PM EDT Patient Choice Patient Name: EZRA GONZALEZ Date of : 1935 All Providers Sent Referral Name: [facility] Phone: [phone] Address: [address] [place] [address] [id number] [facility]* Care Coordination - Unknown Case Management - 06/20/2023 2:58 PM EDT Patient Choice Patient Name: EZRA GONZALEZ Date of : 1935 All Providers Sent Referral Name: [facility] Phone: [phone] Address: [address] [place] [address] [id number] Note* Home Care - Vivian Bills RN - 06/20/2023 2:40 PM EDT Start PACC Note Home Health Referral Educated patient on Home Care and services available. Patient offered choice of available HHC and agreeable to PT/OT services with [facility] - Home Care. Care Types: [...] is noted as yes - consider a OIL FIELD TESTER evaluation once the patient returns home. START PATIENT REGISTRATION INFORMATION Order Information Order Signing Physician: Connie Perez APRN * Service Ordered RN ?: No Service Ordered PT ?: Yes Service Ordered OT ?: Yes Service Ordered ST ?: No Service Ordered OIL FIELD TESTER?:No Service Ordered PROSTHETICS LAB TECHNICIAN?: No Following Physician: ALEXANDRA HAGEN Following Physician Overseeing Physician: ALEXANDRA HAGEN (Required for Residents only) Agreeable to Follow? No Date/Time of Call 06/20/23 2:40 PM, Spoke with: BRYAN FOR OFFICE-CONFIRMED WITH [facility] THIS IS HERPHYSICAN AND CAN SEE RECENT NOTES IN [facility] Care Coordination Same Day SOC?: No Primary Care Physician: ALEXANDRA HAGEN Primary Care Physician Primary Care Physician Address: [address] [place] [address] [address] / [facility] [address] Visit Instructions: N/A Service Discharge Location Type: Assisted Living Service Facility Name: [facility] Floor Facility: N/A Service Room No: 105 Demographics Patient Last Name: Lisa Patient First Name: zEra Language/Communication Barrier: NONE Service Address: [address] [place] [address] [address] Service City: [facility] ST: [place] Service ZIP: [address] Service (home) Other phone numbers: No relevant phone numbers on file. Emergency Contact: Extended Emergency Contact Information Primary Emergency Contact: Patito Cuba Mobile Relation: Son Drain Cleaner needed? No Secondary Emergency Contact: Ty [place] Mobile Relation: Son Admission Information Admit Date: 06/16/2023 Patient status at discharge: Inpatient Admitting Diagnosis: Closed displaced fracture of medial condyle of right humerus, initial encounter [M09.422Q] Caregiver Information Caregiver First Name: NA Caregiver [...] medications. Discharge Date: 06/20/23 Referral Source-PACC: (Hospital/Unit): [facility] / [id number]/[id number] A End PACC Note [id number] [facility]* Home Care - Vivian Bills RN - 06/20/2023 2:40 PM EDT Start PACC Note Home Health Referral Educated patient on Home Care and services available. Patient offered choice of available HHC and agreeable to PT/OT services with [facility] - Home Care. Care Types: [...] is noted as yes - consider a OIL FIELD TESTER evaluation once the patient returns home. START PATIENT REGISTRATION INFORMATION Order Information Order Signing Physician: Connie Perez APRN * Service Ordered RN ?: No Service Ordered PT ?: Yes Service Ordered OT ?: Yes Service Ordered ST ?: No Service Ordered OIL FIELD TESTER?:No Service Ordered PROSTHETICS LAB TECHNICIAN?: No Following Physician: ALEXANDRA HAGEN Following Physician Overseeing Physician: ALEXANDRA HAGEN (Required for Residents only) Agreeable to Follow? No Date/Time of Call 06/20/23 2:40 PM, Spoke with: BRYAN FOR OFFICE-CONFIRMED WITH JOSEP THIS IS HERPHYSICAN AND CAN SEE RECENT NOTES IN [facility] Care Coordination Same Day SOC?: No Primary Care Physician: ALEXANDRA HAGEN Primary Care Physician Primary Care Physician Address: [address] [place] [address] [address] / [facility] [address] Visit Instructions: N/A Service Discharge Location Type: Assisted Living Service Facility Name: [facility] Floor Facility: N/A Service Room No: 105 Demographics Patient Last Name: Lisa Patient First Name: Ezra Language/Communication Barrier: NONE Service Address: [address] [place] [address] [address] Service City: [facility] ST: [place] Service ZIP: [address] Service (home) Other phone numbers: No relevant phone numbers on file. Emergency Contact: Extended Emergency Contact Information Primary Emergency Contact: Patito Cuba Mobile Relation: Son Drain Cleaner needed? No Secondary Emergency Contact: Ty [place] Mobile Relation: Son Admission Information Admit Date: 06/16/2023 Patient status at discharge: Inpatient Admitting Diagnosis: Closed displaced fracture of medial condyle of right humerus, initial encounter [S45.957C] Caregiver Information Caregiver First Name: AMANUEL Caregiver Last Name: AMANUEL Caregiver Relationship to Patient NA Caregiver Phone Number: NA Caregiver Notes: N/A [employer] List No END PATIENT REGISTRATION INFORMATION [...] medications. Discharge Date: 06/20/23 Referral Source-PACC: (Hospital/Unit): [facility] / [id number]/[id number] A End PACC Note [id number] NoteHospitalist Discharge Summary Ezra Gonzalez : 1935 [...] primary care provider Schedule (more content not included)...[facility]03-22-2024 Note* Care Coordination - SELINA [...] pt order lunch. 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 . [facility] [id number] Note* Care Coordination - SELINA Magaña - [...] pt order lunch. Notified TONIO RN and drying unit felting machine operator. . [facility] [id number] Note* Care Coordination - Shikha Gray RN - 06/20/2023 11:01 AM EDT I SPOKE WITH DONOVAN, ROLL FORMER AT [facility]. THEY CAN TAKE PT BACK TODAY. THEY CAN PROVIDE TRANSPORTATION BACK TO FACILITY AROUND 3 PM. AWARE PT WILL NEED PT AT FACILITY, THEY USE [facility], DID LET HC LIAISON NOW. WENT [...] SECURE CHAT WITH CONNIE PEREZ REGARDING THIS. [id number] Note* Care Coordination - Shikha Gray RN - 06/20/2023 11:01 AM EDT I SPOKE WITH DONOVAN, ROLL FORMER AT [facility]. THEY CAN TAKE PT BACK TODAY. THEY CAN PROVIDE TRANSPORTATION BACK TO FACILITY AROUND 3 PM. AWARE PT WILL NEED PT AT FACILITY, THEY USE [facility], DID LET HC LIAISON NOW. WENT [...] SECURE CHAT WITH CONNIE PEREZ REGARDING THIS. [facility] [id number] Hospital course Narrative* Connie Chris, PIPE ASSEMBLY WORKER - SOCCER COMMENTATOR - 06/20/2023 10:18 AM EDT Images from [...] as possible for a visit As needed [facility] Orthopedics Go to Appointment scheduled 06/26/23 at 10:[address] Givens. [address] [facility] Complexity of Follow up: [x] Moderate Complexity: follow up within 7-14 calendar days (62171) [] Severe Complexity: follow up within 7 calendar days (57308) Follow up Testing, Pending results or Referrals [...] time frame. Signed: Connie Perez APRN - SOCCER COMMENTATOR Division of Hospitalist Medicine [facility] 06/20/2023, 1:11 PM documented in this [facility]03-22-2024 [facility] Progress Note ASSESSMENT AND [...] off at this time. Please page resident instructional supervisor on Secure Chat with concerns or [...] in all distributions -Motor function intact to AIN/PIN/UlnarKettering [facility] System [id number] Note PHYSICAL THERAPY [facility] Initial Evaluation Name/MRN: Ezra Gonzalez ([id number]) Evaluation Date: 06/19/2023 Date of : 1935 Admission Date: 06/16/2023 1:38 PM Age: 87 y.o. Room/Bed: E7-707/E7707 A Discharge Recommendation: Home with Home health PT (return to [place]) Equipment Needed: No Assessment IMPRESSION: 87 y.o. pt admitted to [facility] for closed fracture RUE, s/p ORIF R humerus 06/17. They were Min A for bed mobility, Min A for transfers, and Min A for ambulation. Pt limited d/t balance. If from [place] where she can receive Min A for all ADLs and mobility. Would recommend return to [place] and [facility] PT at discharge. Diagnosis: closed fracture [...] correction Ambulation Ambulation 1 Assistive device(s) used: PROSTHETICS LAB TECHNICIAN Assist level: Min Assist Distance (ft): 15' [...] Code Treatment Minutes: (stephanie stone, 1 FA) Dillon (more content not included)...[facility] [id number] Note* Care Coordination - Shikha Gray RN - 06/19/2023 2:05 PM EDT DAY #1 S/P ORIF OF RIGHT ARM. WAITING FOR PT/OT EVALS FOR DC PLANNING. [facility] [id number] Note* Care Coordination - Shikha Gray RN - 06/19/2023 2:05 PM EDT DAY #1 S/P ORIF OF RIGHT ARM. WAITING FOR PT/OT EVALS FOR DC PLANNING. [facility] [id number] NoteOCCUPATIONAL THERAPY [facility] Initial Evaluation Name/MRN: Ezra Gonzalez ([id number]) Evaluation Date: 06/19/2023 Date of : 1935 Admission Date: 06/16/2023 1:38 PM Age: 87 y.o. Room/Bed: [facility]707/[facility]70 A Discharge Recommendation: Continue to assess pending [...] 06/19/23 Expected End: 07/17/23 (more content not included)...[facility]03-21-2024 Note Hospitalist Progress Note 06/19/2023 Subjective: Admit Date: 06/16/2023 PCP: No primary care provider on file. Room#: A0-155/S4-526 A BRIEF HOSPITAL COURSE: Ezra is a [...] Full Code Anticipated Dischar (more content not included)...[facility] 06-19-2023 NoteDepartment of Orthopedic Surgery [...] -Sensation and motor exam limited 2/2 block intactTrinity Health Grand Haven Hospital 06-18-2023 NotePatient: Ezra Gonzalez Procedure Summary Date: 06/18/23 Room / Location: [facility] OR [address] [place] [address] Operating Room Anesthesia Start: 1541 Anesthesia Stop: [...] discharged once all PACU criteria has been met.[facility]03-20-2024 NotePatient: Ezra Gonzalez Procedure Summary Date: 06/18/23 Room / Location: [address] Operating Room Anesthesia Start: 1541 Anesthesia [...] 06/18/23 1913 Temp 97.3 06/18/23 1921 Pulse 79 06/18/231918 Resp 18 06/18/231920 SpO2 [...] Allowed opportunity for questions and acknowledgement of understanding.[facility]03-20-2024 Note* Perioperative Nursing Note - Irina Khan RN - 06/18/2023 8:11 PM EDT Pt states no need to contact family. RN on floor states she will call pt's son,. [facility] [id number] Note* Perioperative Nursing Note - Irina Khan RN - 06/18/2023 8:11 PM EDT Pt states no need to contact family. RN on floor states she will call pt's son,. [facility] [id number] NoteAirway Date/Time: 06/18/2023 3:56 PM Urgency: scheduled General Information and Staff Patient location during procedure: Procedural Resident/ASSISTANT PRODUCER: Sae Lora CRNA Performed: ASSISTANT PRODUCER Indications and Patient Condition Indications for airway [...] (cm): 21 Number of attempts at approach: [address] [place], [place] 8208[address]-20-2024 Note Peripheral IV Date/Time: 06/18/2023 4:00 PM Inserted by: JANNETTE Ivey CRNA Placement Needle size: 20 G Laterality: left Location: upper arm. Local anesthetic: none Site prep: alcohol Technique: ultrasound guided Attempts: [address] [place], [place] 8208[address]-20-2024 NotePeripheral Block Time Out: 06/18/2023 3:28 PM Patient location during procedure: Procedural Start time: 06/18/2023 3:28 PM End time: 06/18/2023 3:32 PM Reason for block: at surgeon's request and post-op pain management Staffing Performed: WAQAS Resident/ASSISTANT PRODUCER: JANNETTE Ivey CRNA Preanesthetic Checklist Completed: patient [...] No paresthesias reported by patient during injectionMedications ricEFZICdrdra-rbhlkrljxfz-vptjgtanllz (TAP) syringe - Injection 30 mL - 06/18/2023 3:28:00 [facility]03-20-2024 NotePatient: Ezra Gonzalez Procedure Information Date/Time: 06/18/23 1530 Procedure: OPEN REDUCTION INTERNAL FIXATION RIGHT DISTAL HUMERUS (Right: Arm Upper) - requesting 330, if can't go at 330 will consider friday Location: [facility] OR [address] [place] [address] Operating Room Surgeons: Benitez Givens MD Relevant [...] by: Thong Francois DO on 06/17/2023 6:39 [facility] 06-18-2023 Hospital Discharge instructions* Discharge Instructions* Evette [...] Emergency Contact: Patito Cuba Mobile Relation: Son Drain Cleaner needed? No Secondary Emergency Contact: Ty Cuba [...] (78.9 kg) Mental Status: {MITCHEL Patient Mental Status:27576} IV Access: {MITCHEL IV Access:53144} Nursing Mobility/ADLs: Walking {MALLY ADL:::"Independent"} Transfer {MALLY ADL:::"Independent"} Bathing {MALLY ADL:::"Independent"} Dressing {MALLY ADL:::"Independent"} Toileting {MALLY ADL:::"Independent"} Feeding {MALLY ADL:::"Independent"} Process Control Programmer {MALLY ADL:::"Independent"} Med Delivery {yes/no:15326} Wound Care Documentation and Therapy: Wound/Incision 06/18/23 Incision Arm Anterior;Right;Upper (Active) Site Assessment Clean;Dry 06/19/232147 Treatments Sling 06/19/232147 Primary Dressing Xeroform 06/19/23 1024 Dressing Status Clean, dry & intact 06/19/232147 Number of days: 1 Elimination: Continence: Bowel: {yes/no:61946} Bladder: {yes/no:52935} Urinary Catheter: {MITCHEL Urinary Catheter:11603} Colostomy/Ileostomy/Ileal Conduit: {YES / NO:} Date of Last BM: No intake or output data in the 24 hours ending 06/20/23 1025 I/O last 3 completed shifts: In: 711 (9 mL/kg) [P.O.:280; I.V.:114 (1.4 mL/kg); IV Piggyback:317] Out: 600 (7.6 mL/kg) [Urine:350 (0.1 mL/kg/hr); Blood:250] Weight: 78.9 kg Safety Concerns: {MITCHEL Safety Concerns:70515} Impairments/Disabilities: {MITCHEL Impairments/Disabilities:28432} Nutrition Therapy: Current Nutrition Therapy: {MITCHEL Diet List:82026} Routes of Feeding: {routes of feedin} Liquids: {liquid consistency:58597} Daily Fluid Restriction: {daily fluid restriction:15169} Last Modified Barium Swallow with Video (Video Swallowing Test): {done not done:37611} Treatments at the Time of Hospital Discharge: Respiratory Treatments: Oxygen Therapy: {Therapy; copd oxygen:76985} Ventilator: {MITCHEL Ventilator:56034} Rehab Therapies: {GEN THERAPY DISCIPLINE SCAL:3429954} Weight Bearing Status/Restrictions: {POD WEIGHT BEARIN} Other Medical Equipment (for information only, NOT a DME order): {Assistive Devices DME:53208} Other Treatments: Patient's personal belongings (please select all that are sent with patient): {MITCHEL Patient Belongings:52919} RN SIGNATURE: {E-signature:07854} CASE MANAGEMENT/SOCIAL WORK SECTION Inpatient Status Date: 06/16/23 Readmission Risk Assessment Score: @READMISSIONRISKDETAILS@ Discharging to Facility/ Agency Discharging to Facility/ Agency Name: [facility] Address: [address] [place] [address] Name: [facility] Address:[address] [place] [address] ~28.4 ak Fax: Dialysis Facility (if applicable) Name: Address: Dialysis Schedule: Phone: Fax: Strategy Analyst/Sawsmith signature: ICIAN SECTION Prognosis: good Condition at [...] in H&P PHYSICIAN SIGNATURE: documented in this [facility]03-20-2024 Note* Brief Op Note - Lexa Aparicio MD - 06/18/2023 3:42 PM EDT Date: 06/16/2023 - 06/18/2023 Location: [facility] OR Name: Ezra Gonzalez, : 1935, Diagnosis Pre-op Diagnosis * Closed displaced fracture of medial condyle of right humerus, initial encounter [S42.665F] Post-op Diagnosis * Closed displaced fracture of medial condyle of right humerus, initial encounter [S42.067K] Procedures OPEN REDUCTION INTERNAL FIXATION RIGHT DISTAL HUMERUS 96109 - MD OPTX HUMERAL SHFT FX W/PLATE/SCREWS W/WOCERCLAGE Surgeons * Benitez Givens - Primary Procedure Summary Anesthesia: * No anesthesia type entered * ASA: III Estimated Blood Loss: Minimal Drains: * None in log * Staff: Blind Eyeletter: Vivian Herrera RN Scrub Person: Linda Alvarez [...] Givens in 2 weeks -Ortho to follow. [employer] Work Phone: 1(578) 525-609303-20-2024 Note* Brief Op Note - Lexa Aparicio MD - 06/18/2023 3:42 PM EDT Date: 06/16/2023 - 06/18/2023 Location: [facility] OR Name: Ezra Gonzalez, : 1935, Diagnosis Pre-op Diagnosis * Closed displaced fracture of medial condyle of right humerus, initial encounter [S42.529N] Post-op Diagnosis * Closed displaced fracture of medial condyle of right humerus, initial encounter [S42.356F] Procedures OPEN REDUCTION INTERNAL FIXATION RIGHT DISTAL HUMERUS 00620 - MD [employer] HUMERAL SHFT FX W/PLATE/SCREWS W/WOCERCLAGE Surgeons * Benitez Givens - Primary Procedure Summary Anesthesia: * No anesthesia type entered * ASA: III Estimated Blood Loss: Minimal Drains: * None in log * Staff: Blind Eyeletter: Vivian Herrera RN Scrub Person: Linda Alvarez [...] Givens in 2 weeks -Ortho to follow. [employer] Work Phone: 1(110) 815-110703-20-2024 Note* Perioperative Nursing Note - Deisy Gonzalez RN - 06/18/2023 3:29 PM EDT Patients wallet and watch locked up with security. OR notified patient states she has latex allergy Patients purse and glasses [facility] pacu [facility] [id number] Note* Perioperative Nursing Note - Deisy Gonzalez RN - 06/18/2023 3:29 PM EDT Patients wallet and watch locked up with security. OR notified patient states she has latex allergy Patients purse and glasses taken to pacu [facility] HospitalCons[facility] [id number] Note* Care Coordination - Shikha Gray RN - 06/18/2023 1:03 PM EDT Care Managment Initial Assessment Date: 06/18/2023 Patient Name: Ezra Gonzalez : 1935 Patient Information Source of Information: Patient Cognition/Language: WFL - Within Functional Limits Permission given to speak with patient medical center representative/caregiver as indicated: No Confirmation of Payer with patient/family: Yes Payer Name: [facility] [place]: No Confirmation of Primary Care Physician: Confirmed [...] Assistance Provider Meal Prep Assistance Provider Name: [place] STAFF Laundry/Cleaning: Assistance Provider Laundry/Cleaning Assistance Provider [...] WILL CONTINUE TO FOLLOW. Shikha Gray RN [facility] [id number] Note* Care Coordination - Shikha Gray RN - 06/18/2023 1:03 PM EDT Care Managment Initial Assessment Date: 06/18/2023 Patient Name: Ezra Gonzalez : 1935 Patient Information Source of Information: Patient Cognition/Language: WFL - Within Functional Limits Permission given to speak with patient medical center representative/caregiver as indicated: No Confirmation of Payer with patient/family: Yes Payer Name: [facility] : No Confirmation of Primary Care [...] WILL CONTINUE TO FOLLOW. Shikha Gray RN [facility] [id number] NoteHospitalist Progress Note 06/18/2023 Subjective: Admit Date: 06/16/2023 PCP: No primary care provider on file. Room#: E7-644/I5-961 A BRIEF HOSPITAL COURSE: Ezra is a [...] Emergency Contact: Patito Cuba Mobile Relation: Son Drain Cleaner needed? No Se (more content not included)...[facility]03-20-2024 Note Department of Orthopedic Surgery [...] radial/median/ulnar/axillary nerve distributions -Motor + AIN/PIN/ulnar nerve functionsTrinity Health [facility] Hospital03-19-2024 Plan of care note* Care Plan - Yvan Sepulveda RN - 06/17/2023 11:35 PM EDT The patient is Moderately Stable - Low risk of patient condition declining or worsening The patient's goals for the shift include rest and pain control The clinical goals for the shift include rest and pain control [facility] [id number] Nurse Note* Yvan Sepulveda RN - 06/17/2023 9:22 PM EDT Patient home medication list updated, provider made aware. [facility] [id number] Nurse Note* Yvan Sepulveda RN - 06/17/2023 9:22 PM EDT Patient home medication list updated, provider made aware. documented in this [facility]03-19-2024 Emergency department Note* Di Reyna RN - 06/17/2023 11:52 AM EDT Patient resting in bed at this time, equal unlabored respirations noted and no acute distress, callbell within reach Di Reyna RN 06/17/23 1153 [facility] [id number] Emergency department Note* Di Reyna RN - [...] US IV line. Juanjo Pringle RN 06/16/23 1476 * NADIA Ruiz - 06/16/2023 12:38 PM EDT Images from the original note were not included. EMERGENCY DEPARTMENT ENCOUNTER Pt Name: Ezra Gonzalez Birthdate 1935 Date of evaluation: 06/16/2023 ED Provider: NADIA Ruiz CHIEF COMPLAINT Chief Complaint Patient presents with Arm Injury Pt arrives [facility] with complaints of right elbow fracture.Patient [...] distal humerus fracture. Patient was transferred to [facility] ED for orthopedic consultation. Patient [...] Culture. Procedure Abnormality Status --------- ------ Complete Urinalysis[[id number]] Please view results for these tests on [...] a distal humerus fracture. Patient transferred to [facility] ED for orthopedic consultation. Nursing [...] screen, x-ray right elbow. CT head from [facility] -shows no signs of acute cranial abnormalities. CXR from [facility] ED prior to arrival -blunting of bilateral [...] 06/16/2023 12:38 PM EDT Emergency Department Encounter [facility] EMERGENCY DEPT Patient: Ezra Gonzalez [...] Conde MD 06/16/23 1626 documented in this [facility]03-19-2024 Emergency department Note* Alia Foster RN - 06/17/2023 10:00 AM EDT Pt O2 desaturating to mid 80s after receiving dilaudid IV. Pt placed on 2L NC and immediately back up to 95%. notified Alia Foster RN 06/17/23 1031 [facility] [id number] NoteHospitalist Progress Note 06/17/2023 Subjective: Admit Date: [...] Emergency Contact: Patito Cuba Mobile Relation: Son Drain Cleaner needed? No Secondary Emergency Contact: Ty Cuba Mobile Relation: Son Connie Perez, PIPE ASSEMBLY WORKER - SOCCER COMMENTATOR Division of Hospitalist Medicine [facility]03-19-2024 NoteDepartment of Orthopedic Surgery Progress [...] ulnar nerve distributions -Motor + AIN/PIN/ulnar nerve functionsTr[facility] Health [facility]03-18-2024 Emergency department Note* Juanjo Pringle [...] US IV line. Juanjo Pringle RN 06/16/23 5057 [facility] CampusWdfsui42-08-4582 NoteAttending History and Physical Admit Date: 06/16/2023 [...] Pain control am labs, (more content not included)...[facility]03-18-2024 History and physical note* Jayshree [...] Emergency Contact: Patito Cuba Mobile Relation: Son Drain Cleaner needed? No Secondary Emergency Contact: Ty Cuba Mobile Relation: Son Jayshree Cortez MD Division of Hospitalist Medicine [facility] [employer] Phone: 1(432) 617-446803-18-2024 History and physical note* Jayshree Cortez MD [...] Emergency Contact: Patito Cuba Mobile Relation: Son Drain Cleaner needed? No Secondary Emergency Contact: Ty Cuba Mobile Relation: Son Jayshree Cortez MD Division of Hospitalist Medicine Acute [facility] documented in this [facility]03-18-2024 Physician Emergency department Note* NADIA Ruiz - 06/16/2023 12:38 PM EDT Images from the original note were not included. EMERGENCY DEPARTMENT ENCOUNTER Pt Name: Ezra Gonzalez Birthdate 1935 Date of evaluation: 06/16/2023 ED Provider: NADIA Ruiz CHIEF COMPLAINT Chief Complaint Patient presents with Arm Injury Pt arrives via [facility] from [facility] with complaints of right elbow fracture.Patient [...] distal humerus fracture. Patient was transferred to [facility] ED for orthopedic consultation. Patient [...] Culture. Procedure Abnormality Status --------- ------ Complete Urinalysis[[id number]] Please view results for these tests on [...] a distal humerus fracture. Patient transferred to [facility] ED for orthopedic consultation. Nursing [...] screen, x-ray right elbow. CT head from [facility] -shows no signs of acute cranial abnormalities. CXR from [place] [facility] ED prior to arrival -blunting of bilateral [...] Emergency Medicine Provider NADIA Ruiz 06/16/23 1635 [facility] CampusTshpmh66-13-1633 Physician Emergency department Note* Sae Conde MD - 06/16/2023 12:38 PM EDT Emergency Department Encounter [facility] EMERGENCY DEPT Patient: Ezra Gonzalez [...] [employer] Sae Conde MD 06/16/23 1626 [facility] [employer] Phone: 1(875) 897-687709-30-2023 Discharge summary Author Lali Pimentel [facility] December 27, 2022 10:31pm Note Date/Time December 27, 2022 3:52pm [facility] Medical Records Department [address] [place] [address] Emergency Department Summary 12/27/22 MR#: [id number] Acct: [id number] Name: EZRA GONZALEZ Rep #:[id number] : 1935 87 From: Lali Pimentel MD PCP: Dr. Rosemary Doran MD Status:ADM ZHENG Location: [address] History of Present Illness Chief Complaint: [...] repeat a phrase her speech is garbled. [facility] Medical History Atherosclerotic heart disease of [place] coronary artery without angina pectoris Chronic diastolic [...] % (Auto) 57.4 Lymph % (Auto) 27.9 Carroll % (Auto) 10.8 H Eos % (Auto) [...] troponin is normal at 10. Neurology from [facility] felt that the patient should [...] Provider] - Disposition Disposition: Acute Care Hospital [facility] What to do if you have Problems For any increased pain, shortness of breath, bleeding, nausea or vomiting, chestpain, or any unexpected problems, contact your Primary Care Provider. Call [facility] ([phone]) or report to the closest Emergency Room. Call 911 if necessary. 12/27/222230 <Electronically signed by Lali Pimentel MD> Cosigner Signature (if applicable): CC: Dr. Rosemary Doran MD ~ Signed [facility] Work Phone: 1(684) 988-676209-29-2023 History and physical note Author Lynn Horn [facility] December 27, 2022 6:54pm Note Date/Time December 27, 2022 5:12pm [facility] Medical Records Department [address] [place] [address] H&P Exam - Hospitalist 12/27/22 1709 MR#: [id number] Acct: [id number] Name: EZRA GONZALEZ Rep #:[id number] : 1935 87 From: Lynn Horn DO PCP: Dr. Rosemary Doran MD Status:ADM ZHENG Location: [place] [address] HPI - General General Date of Admission: 12/27/22 Date of Service: 12/27/22 Chief Complaint: Speech abnormalities HPI Narrative EZRA GONZALEZ, is a 87 F who presented to the emergency department at [facility] on 12/27/2022 with speech abnormalities that started after 1 PM this afternoon. She resides at [facility]. She was last known well at [...] will add aspirin 81 mg as well COUNT INCLUDES THE [facility] Medical History Atherosclerotic heart disease of [place] coronary artery without angina pectoris Chronic diastolic [...] % (Auto) 57.4, Lymph % (Auto) 27.9, Carroll % (Auto) 10.8 H, Eos % (Auto) [...] Signed: Ban Avila MD at 15:37 EDT Reading Location ID and State: [facility] / [place] Tel , Service support , ADDENDUM: 12/27/22 1548 IMPRESSION: No acute [...] on admission Charges/Coding Visit Charges Inpatient E&M: 16144 Init Hosp L2 12/27/22 1831 <Electronically signed by Lynn Horn DO> Cosigner Signature (if applicable): CC: Dr. Rosemary Doran MD; Dr. Lynn Horn DO~ Signed [facility] Work Phone: 1(926) 977-829009-14-2023 Discharge summary Author María Crane [facility] December 12, 2022 1:40pm Note Date/Time December 12, 2022 1:40pm [facility] Physical Therapy [facility] [address] [place] [address] [address] [place] [address] / REHABILITATION SERVICES DISCHARGE SUMMARY MR#: [id number] Acct: [id number] Name: EZRA GONZALEZ Rep #: [id number] : 1935 87 From: María Bo Referring Dr.: Dr. Anant Juarez MD Status: REG R Insurance: [facility] [id number] SELF PAY INSURANCE Patient Information Patient Information: [...] Dr. Anant Juarez MD ~ ELR Signed [facility] Work Phone: 1(444) 605-934211-17-2007 Evaluation note* Diagnosis Onset Date Resolution Status Chronic diastolic (congestive) heart failure chronic Essential (primary) hypertension chronic Paroxysmal atrial fibrillation chronic History of coronary artery stent placement February 142006 resolved [facility] Work Phone: 1(976) 569-995711-17-2007 Evaluation note* Diagnosis Onset Date Resolution Status Chronic diastolic (congestive) heart failure chronic Essential (primary) hypertension chronic History of coronary artery stent placement February 142006 resolved Brain TIA resolved Carotid stenosis acute Difficulty with speech acute Dysarthria resolved Polyneuropathy acute [facility] Work Phone: 1(891) 601-791511-17-2007 Evaluation note* Diagnosis Onset Date Resolution Status Chronic diastolic (congestive) heart failure chronic Essential (primary) hypertension chronic History of coronary artery stent placement February 142006 resolved Brain TIA resolved Carotid stenosis acute Difficulty with speech acute Dysarthria resolved Abnormality of gait and mobility acute Carotid stenosis acute Dementia acute Polyneuropathy acute Transient ischemic attack re solved [facility] Work Phone: 1([phone]) 534-188511-17-2007 Evaluation note* Diagnosis Onset Date Resolution Status Longstanding persistent atrial fibrillation acute Essential (primary) hypertension chronic History of coronary artery stent placement February 142006 resolved Dementia acute Epilepsy acute Polyneuropathy acute Transient ischemic attack re solved [facility] Work Phone: Consult note Author Kvng Carney [facility] June 16, 2023 10:15am Note Date/Time June 16, 2023 10: 14am [facility] Medical Records Department [address] [place] [address] [place] [address] Consultation - Orthopedics 06/16/23 1012 MR#: [id number] Acct: [id number] Name: EZRA GONZALEZ Rep #:[id number] : 1935 87 From: Kvng Carney MD PCP: Dr. Rosemary Doran MD Status:REG ER Location: ED HPI Consult Data Date of Consult: 06/16/23 HPI Narrative HPI Narrative: EZRA GONZALEZ, is a 87 F who presents with a right distal humerus fracture. Patient apparently is in residential there a fall. According to the ED physician Dr. Mack who called me today this is a closed neurovascularly intact injury. COUNT INCLUDES THE [facility] Medical History (Updated 06/16/23 @ 10:13 by Kvng Carney MD) Atherosclerotic heart disease of [place] coronary artery without angina pectoris Chronic diastolic [...] % (Auto) 67.8, Lymph % (Auto) 23.0, [place]% (Auto) 7.0, Eos % (Auto) 1.3, Baso [...] applicable): CC: Dr. Rosemary Doran MD~ Signed [facility] Work Phone: Discharge summary Author Neri Mitchell [facility] November 14, 2022 11:57am Note Date/Time November 14, 2022 11 :10am [facility] Medical Records Department [address] [place] [id number] Emergency Department Summary 11/14/22 MR#: [id number] Acct: [id number] Name: EZRA GONZALEZ Rep #:[id number] : 1935 87 From: Neri Mitchell MD [...] is on warfarin has history of TIAs. [facility] Medical History Atherosclerotic heart disease of [place] coronary artery without angina pectoris Chronic diastolic [...] % (Auto) 64.0 Lymph % (Auto) 24.9 [place] % (Auto) 7.8 Eos % (Auto) 2.4 [...] No evidence for large vessel occlusion the [place]. N.B. : The above Results were Read Back by Ban Avila MD to Neri Mitchell MD, and understanding confirmed on 11/14/2022 11:41:26 (ET). Electronically Signed: Ban Avila MD at 11:41 EDT , ADDENDUM: 11/14/22 1148 IMPRESSION: No evidence for significant stenosis or occlusion in the carotid or vertebral arteries of the neck. No evidence for large vessel occlusion the [place]. N.B. : The above [...] Fibrillation Management Discussion w/another healthcare provider: Hospitalist, Cotton Opener (Stroke neurology Dr. Tamez) and Radiologist (At 1121 for NCCT, negative for bleed) Stroke Documentation Questions Stroke Team Activated: Yes Critical Care Time Critical Care Time: Yes Critical care time (excluding procedures): 30-74 minutes (37 min), Including time spent:, Discussing w/Patient &/or Family/Manager Bilingual, Discussing w/Consultants, Arranging Admission or Transfer and Performing Direct Patient Care at Bedside Discharge Plan Dx/Rx/DC Orders Clinical Impression: Brain TIA, Paroxysmal atrial fibrillation, Subtherapeutic international normalized ratio (INR) Disposition Disposition: Acute Care Hospital [facility] What to do if you have Problems For any increased pain, shortness of breath, bleeding, nausea or vomiting, chestpain, or any unexpected problems, contact your Primary Care Provider. Call [employer] [facility] ([phone]) or report to the closest Emergency Room. Call 911 if necessary. 11/14/22 1157 <Electronically signed by Neri Mitchell MD> Cosigner Signature (if applicable): CC: Dr. Rosemary Doran MD ~ Signed [facility] Work Phone: Discharge summary Author Sae Carballo [facility] December 28, 2022 11:09am Note Date/Time December 28, 2022 11:08am [facility] Medical Records Department [address] [place] [address] Instructions for Home/Discharge Instructions 12/28/22 1107 MR#: [id number] Acct: [id number] Name: EZRA GONZALEZ Rep #:[id number] : 1935 87 From: Sae fleming MD PCP: Dr. Rosemary Doran MD Status:ADM ZHENG Discharge Instructions Diet Discharge Diet: Low fat [...] MD; Dr. Lynn Horn DO ~ Signed [facility] Work Phone: Evaluation note* Diagnosis Onset Date Resolution Status Atherosclerotic heart diseas e of [place] coronary artery without angina pectoris chronic Chronic diastolic (congestive) heart failure chronic Essential (primary) hypertension chronic Hyperlipidemia chronic Paroxysmal atrial fibrillation chronic [facility] Work Phone: Evaluation note* Diagnosis Onset Date Resolution Status Abnormality of gait and mobility acute Carotid stenosis acute Dementia acute Polyneuropathy acute Transient ischemic attack re solved [facility] Work Phone: Evaluation note* Diagnosis Onset Date Resolution Status Abnormality of gait and mobility acute Carotid stenosis acute Dementia acute Polyneuropathy acute Transient ischemic attack re solved Chronic diastolic (congestive) heart failure chronic Essential (primary) hypertension chronic Paroxysmal atrial fibrillation chronic History of coronary artery stent placement February 142006 resolved [facility] Work Phone: Evaluation note* Diagnosis Onset Date Resolution Status Abnormality of gait and mobility acute Carotid stenosis acute Dementia acute Polyneuropathy acute Transient ischemic attack re solved Chronic diastolic (congestive) heart failure chronic Essential (primary) hypertension chronic Paroxysmal atrial fibrillation chronic History of coronary artery stent placement February 142006 resolved Brain TIA acute Subtherapeutic international normalized ratio (INR) acute Paroxysmal atrial fibrillation chronic [facility] Work Phone: Evaluation note* Diagnosis Onset Date Resolution Status Abnormality of gait and mobility acute Carotid stenosis acute Dementia acute Polyneuropathy acute Transient ischemic attack re solved Chronic diastolic (congestive) heart failure chronic Essential (primary) hypertension chronic History of coronary artery stent placement February 142006 resolved Brain TIA resolved Carotid stenosis acute [facility] Work Phone: Evaluation note* Diagnosis Onset Date Resolution Status Abnormality of gait and mobility acute Carotid stenosis acute Dementia acute Polyneuropathy acute Transient ischemic attack re solved Chronic diastolic (congestive) heart failure chronic Essential (primary) hypertension chronic History of coronary artery stent placement February 142006 resolved Brain TIA resolved Carotid stenosis acute Difficulty with speech acute Dysarthria acute [facility] Work Phone: Evaluation note* Diagnosis Onset Date Resolution Status Brain TIA resolved Carotid stenosis acute Difficulty with speech acute Dysarthria resolved Abnormality of gait and mobility acute Carotid stenosis acute Dementia acute Polyneuropathy acute Transient ischemic attack re solved [facility] Work Phone: Evaluation note* Diagnosis Onset Date Resolution Status Dementia acute Epilepsy acute Polyneuropathy acute Transient ischemic attack re solved [facility] Work Phone: Evaluation note* Diagnosis Onset Date Resolution Status Dementia acute Epilepsy acute Polyneuropathy acute Transient ischemic attack re solved Longstanding persistent atrial fibrillation acute Essential (primary) hypertension chronic History of coronary artery stent placement February 142006 resolved Dementia acute Epilepsy acute Polyneuropathy acute Transient ischemic attack re solved [facility] Work Phone: Evaluation note* Diagnosis Closed displaced fracture of medial condyle of right humerus, initial encounter- Primary Closed displaced fracture of medial condyle of right humerus, initial encounter [facility] Additional Instructions Your work-up today does not show signs of heart attack or heart damage. Your Coumadin level/INR is therapeutic at 2.7. Please follow-up with your family doctor for repeat evaluation or return to the ER if [facility] any [facility] Discharge instructionsAmbulatory Orders* Physical Therapy Referral Location: None Selected [facility] Work Phone: Hospital Discharge instructions Additional Instructions Will need to follow-up Lamictal level since it is a send out. Recommend follow- up appointment with her neurologist Dr. [facility] Work Phone: Reason for referral (narrative)No reason for referral information availableWSCCI [facility] Work Phone: Summary Purpose Family History No Family History Records Found Relationship Condition Age at Onset Recorded Date/T maggy father Coronary artery disease Unknown brother Coronary artery disease Unknown Advance Directives No Advanced Directives Records Found Advance Directive Response Recorded Date/ Time Advance Directives Yes November 10:13am Living Will No February 11 12:11am Power of Magazine Grinder Loader No February 11, 2022 12:11am Advance Directive Response Recorded Date/ Time Advance Directives Yes November 11:13am Living Will No February 11 1:11am Power of Magazine Grinder Loader No February 11, 2022 1:11am Advance Directive Response Recorded Date/ Time Advance Directives Yes November 11:13am Living Will No September 08, 2022 3:33pm Power of Magazine Grinder Loader No September 08 3:33pm Advance Directive Response Recorded Date/ Time Advance Directives Yes November 11:13am Living Will No November 14 11:07am Power of Magazine Grinder Loader No November 14 023 11:07am Advance Directive Response Recorded Date/ Time Name of Medical Power of Magazine Grinder Loader Ty Campoverdei akanksha November 18, 2022 7:55am Advance Directives Yes November 11:13am Living Will Yes November 18 7:55am Power of Magazine Grinder Loader Yes November 18 023 7:55am Name of Medical Power of Magazine Grinder Loader Wilfredo Nemastrodrigue November 14, 2022 1:26pm Advance Directive Response Recorded Date/ Time Name of Medical Power of Magazine Grinder Loader Ty Campoverdei l November 18, 2022 7:55am Name of Medical Power of Magazine Grinder Loader Wilfredo Nemastil November 14, 2022 1:26pm Advance Directives Yes November 11:13am Living Will No December 27, 2022 7:16pm Power of Magazine Grinder Loader No November 7:16pm Advance Directive Response Recorded Date/ Time Name of Medical Power of Magazine Grinder Loader Ty Chiangasti l November 18, 2022 6:55am Name of Medical Power of Magazine Grinder Loader Wilfredo Nemastil November 14, 2022 12:26pm Advance Directives Yes November 10:13am Living Will No December 27, 2022 6:16pm Power of Magazine Grinder Loader No November 6:16pm Advance Directive Response Recorded Date/ Time Advance Directives Yes November 10:13am Living Will No December 27, 2022 6:16pm Power of Magazine Grinder Loader No November 6:16pm Advance Directive Response Recorded Date/ Time Name of Medical Power of Magazine Grinder Loader SON--JACK June 16, 2023 8:32am Advance Directives Yes November 11:13am Living Will Yes June 16, 2023 8:32am Power of Magazine Grinder Loader Yes June 15 8:32am Latest Code Status on File Code Status Date Activated Date Inactivated Comments Full Code 06/16/2023 4:39 PM 06/20/2023 7:46 PM Advance Directive Response Recorded Date/ Time Living Will Yes June 16, 2023 7:32am Power of Magazine Grinder Loader Yes June 15 7:32am Advance Directives Yes November 10:13am Advance Directive Response Recorded Date/ Time Living Will Yes June 16, 2023 8:32am Do you have a Healthcare Power of Magazine Grinder Loader? Yes June 16, 2023 8:32am Advance Directives Yes November 11:13am Advance Directive Response Recorded Date/ Time Living Will No December 27, 2022 7:16pm Do you have a Healthcare Power of Magazine Grinder Loader? No December 27, 2022 7:16pm Living Will Yes June 16, 2023 8:32am Do you have a Healthcare Power of Magazine Grinder Loader? Yes June 16, 2023 8:32am Advance Directives Yes November 11:13am Advance Directive Response Recorded Date/ Time Living Will No December 27, 2022 7:16pm Do you have a Healthcare Power of Magazine Grinder Loader? No December 27, 2022 7:16pm Do you have a Healthcare Power of Magazine Grinder Loader? Yes September 08, 2024 12:26pm Advance Directives Yes November 11:13am Advance Directive Response Recorded Date/ Time Living Will No December 27, 2022 7:16pm Do you have a Healthcare Power of Magazine Grinder Loader? No December 27, 2022 7:16pm Do you have a Healthcare Power of Magazine Grinder Loader? Yes September 10, 2024 5:17pm Do you have a Healthcare Power of Magazine Grinder Loader? Yes September 08, 2024 12:26pm Advance Directives [...] for Visit Atherosclerotic hear t disease of [place] coronary artery without angina pectoris Chronic diastolic [...] TIA SYMPTOMS, HX OF DM, AFIB confusion 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 EORDER FOR LABS FROM DR JUAREZ Consult Reason for Visit Abnormality of gait and mobility Carotid stenosis Dementia Polyneuropathy Transient ischemic attack Chief Complaint TIA SYMPTOMS, HX OF DM, AFIB confusion FDC (current) use 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 EORDER FOR LABS FROM DR JUAREZ Consult LEFT ICA STENOSIS Reason for Visit Abnormality of gait and mobility Carotid stenosis Dementia Polyneuropathy Transient ischemic attack Chief Complaint TIA SYMPTOMS, HX OF DM, AFIB confusion FDC (current) use 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 EORDER FOR LABS FROM DR JUAREZ Consult LEFT ICA STENOSIS 6 M FU W TAKE AWAY MAN per TAKE AWAY MAN GAIT,POLYNEUROPATHY,LUMBAR COMPRESSION FX/RX HERE GAIT DISORDER Reason for Visit Abnormality of gait and mobility Carotid stenosis Dementia Polyneuropathy Transient ischemic attack Chronic diastolic (congestive) heart failure Essential (primary) hypertension Paroxysmal atrial fibrillation History of coronary artery stent placement Chief Complaint TIA SYMPTOMS, HX OF DM, AFIB confusion 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 EORDER FOR LABS FROM DR JUAREZ Consult LEFT ICA STENOSIS 6 M FU W TAKE AWAY MAN per TAKE AWAY MAN GAIT,POLYNEUROPATHY,LUMBAR COMPRESSION FX/RX HERE GAIT DISORDER TIA Reason for Visit Abnormality of gait and mobility Carotid stenosis Dementia Polyneuropathy Transient ischemic attack Chronic diastolic (congestive) heart failure Essential (primary) hypertension Paroxysmal atrial fibrillation History of coronary artery stent placement Brain TIA Subtherapeutic international normalized ratio (INR) Paroxysmal atrial fibrillation Chief Complaint TIA SYMPTOMS, HX OF DM, AFIB confusion FDC (current) use 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 EORDER FOR LABS FROM DR JUAREZ Consult LEFT ICA STENOSIS 6 M FU W TAKE AWAY MAN per TAKE AWAY MAN GAIT,POLYNEUROPATHY,LUMBAR COMPRESSION FX/RX HERE GAIT DISORDER TIA TIA (cardiology) TIA (cardiology) tia Reason for Visit Abnormality of gait and mobility Carotid stenosis Dementia Polyneuropathy Transient ischemic attack Chronic diastolic (congestive) heart failure Essential (primary) hypertension Paroxysmal atrial fibrillation History of coronary artery stent placement Brain TIA Subtherapeutic international normalized ratio (INR) Paroxysmal atrial fibrillation Chief Complaint TIA SYMPTOMS, HX OF DM, AFIB confusion FDC (current) use 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 EORDER FOR LABS FROM DR JUAREZ Consult LEFT ICA STENOSIS 6 M FU W TAKE AWAY MAN per TAKE AWAY MAN GAIT,POLYNEUROPATHY,LUMBAR COMPRESSION FX/RX HERE GAIT DISORDER TIA TIA (cardiology) TIA (cardiology) tia [facility]AIL LAB WORK CONSULT-CAROTID STENOSIS Reason for Visit Abnormality of gait and mobility Carotid stenosis Dementia Polyneuropathy Transient ischemic attack Chronic diastolic (congestive) heart failure Essential (primary) hypertension History of coronary artery stent placement Brain TIA Carotid stenosis Chief Complaint TIA SYMPTOMS, HX OF DM, AFIB confusion FDC (current) use 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 EORDER FOR LABS FROM DR JUAREZ Consult LEFT ICA STENOSIS 6 M FU W TAKE AWAY MAN per TAKE AWAY MAN GAIT,POLYNEUROPATHY,LUMBAR COMPRESSION FX/RX HERE GAIT DISORDER TIA TIA (cardiology) TIA (cardiology) tia JAIL LAB WORK CONSULT-CAROTID STENOSIS LABWORK JAIL LABWORK Reason for Visit Abnormality of gait and mobility Carotid stenosis Dementia Polyneuropathy Transient ischemic attack Chronic diastolic (congestive) heart failure Essential (primary) hypertension History of coronary artery stent placement Brain TIA Carotid stenosis Chief Complaint TIA SYMPTOMS, HX OF DM, AFIB confusion FDC (current) use 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 EORDER FOR LABS FROM DR JUAREZ Consult LEFT ICA STENOSIS 6 M FU W TAKE AWAY MAN per TAKE AWAY MAN GAIT,POLYNEUROPATHY,LUMBAR COMPRESSION FX/RX HERE GAIT DISORDER TIA TIA (cardiology) TIA (cardiology) tia JAIL LAB WORK CONSULT-CAROTID STENOSIS LABWORK JAIL LABWORK DYARTHRIA DYARTHRIA Reason for Visit Abnormality of gait and mobility Carotid stenosis Dementia Polyneuropathy Transient ischemic attack Chronic diastolic (congestive) heart failure Essential (primary) hypertension History of coronary artery stent placement Brain TIA Carotid stenosis Difficulty with speech Dysarthria Chief Complaint LEFT ICA STENOSIS 6 M FU W TAKE AWAY MAN per TAKE AWAY MAN GAIT,POLYNEUROPATHY,LUMBAR COMPRESSION FX/RX HERE GAIT DISORDER TIA TIA (cardiology) TIA (cardiology) tia [facility]AIL LAB WORK CONSULT-CAROTID STENOSIS LABWORK JAIL LABWORK DYARTHRIA DYARTHRIA DYARTHRIA JAIL LABWORK 4 month f/u EORDER Reason for Visit Chronic diastolic (c ongestive) heart failure Essential (primary) hypertension History of coronary artery stent placement Brain TIA Carotid stenosis Difficulty with speech Dysarthria Polyneuropathy Chief Complaint 6 M FU W TAKE AWAY MAN per TAKE AWAY MAN GAIT,POLYNEUROPATHY,LUMBAR COMPRESSION FX/RX HERE GAIT DISORDER TIA TIA (cardiology) TIA (cardiology) tia JAIL LAB WORK CONSULT-CAROTID STENOSIS LABWORK JAIL LABWORK DYARTHRIA DYARTHRIA DYARTHRIA JAIL LABWORK 4 month f/u EORDER Reason for Visit Chronic diastolic (c ongestive) heart failure Essential (primary) hypertension History of coronary artery stent placement Brain TIA Carotid stenosis Difficulty with speech Dysarthria Abnormality of gait and mobility Carotid stenosis Dementia Polyneuropathy Transient ischemic attack Chief Complaint TIA TIA (cardiology) TIA (cardiology) tia JAIL LAB WORK CONSULT-CAROTID STENOSIS LABWORK JAIL LABWORK DYARTHRIA DYARTHRIA DYARTHRIA JAIL LABWORK 4 month f/u EORDER JAIL LABWORK Reason for Visit Brain TIA Carotid stenosis Difficulty with speech Dysarthria Abnormality of gait and mobility Carotid stenosis Dementia Polyneuropathy Transient ischemic attack Chief Complaint JAIL LABWORK 4 month f/u EORDER JAIL LABWORK JAIL LAB WORK JAIL LABWORK Reason for Visit Dementia Epilepsy Polyneuropathy Transient ischemic attack Chief Complaint 4 month f/u EORDER JAIL LABWORK JAIL LAB WORK JAIL LAB WORK JAIL LABWORK 7 m fu 4 month f/u Reason for Visit Dementia Epilepsy Polyneuropathy Transient ischemic attack Longstanding persistent atrial fibrillation Essential (primary) hypertension History of coronary artery stent placement Dementia Epilepsy Polyneuropathy Transient ischemic attack Chief Complaint JAIL LABWORK JAIL LAB WORK JAIL LAB WORK JAIL LABWORK LABWORK 7 m fu 4 month f/u LABWORK Reason for Visit Longstanding persist ent atrial fibrillation Essential (primary) hypertension History of coronary artery stent placement Dementia Epilepsy Polyneuropathy Transient ischemic attack Chief Complaint JAIL LABWORK JAIL LAB WORK JAIL LAB WORK JAIL LABWORK LABWORK 7 m fu 4 month f/u LABWORK FALL FALL Reason for Visit Longstanding persist ent atrial fibrillation Essential (primary) hypertension History of coronary artery stent placement Dementia Epilepsy Polyneuropathy Transient ischemic attack Chief Complaint JAIL LAB WOR K JAIL LAB WORK JAIL LABWORK LABWORK 7 m fu 4 month f/u LABWORK FALL FALL LABWORK Reason for Visit Longstanding persist ent atrial fibrillation Essential (primary) hypertension History of coronary artery stent placement Dementia Epilepsy Polyneuropathy Transient ischemic attack Chief Complaint Admit Date JAIL LAB WORK February 05, 2024 5:00am JAIL LAB WORK March 04, 2024 5:00am JAIL LAB WORK March 08, 2024 5:00am JAIL LAB WORK March 10 4:00am LABWORK March 17, 2024 5:00am LABWORK March 19, 2024 5:00am LABWORK March 25, 2024 5:00am JAIL LAB WORK March 26 5:00am JAIL LAB WORK March 29 5:00am JAIL LAB WORK April 05, 2024 5:00am JAIL LAB WORK April 06, 2024 5:00am LABWORK April 09, 2024 5 :00am JAIL LAB WORK April 14, 2024 4:00am JAIL LAB WORK April 28, 2024 5:00am LABWORK May 05, 2024 5 :00am 8 mo fu May 10, 2024 2:34pm JAIL LAB WORK May 19 5:00am Reason for Visit Admit Date Dementia May 10, 2024 2:34pm Epilepsy May 10, 2024 2:34pm Transient ischemic attack May 10, 2024 2:34pm Chief Complaint Admit Date JAIL LAB WORK March 04, 2024 5:00am JAIL LAB WORK March 08, 2024 5:00am JAIL LAB WORK March 10 4:00am LABWORK March 17, 2024 5:00am LABWORK March 19, 2024 5:00am LABWORK March 25, 2024 5:00am JAIL LAB WORK March 26 5:00am JAIL LAB WORK March 29 5:00am JAIL LAB WORK April 05, 2024 5:00am JAIL LAB WORK April 06, 2024 5:00am LABWORK April 09, 2024 5 :00am JAIL LAB WORK April 14, 2024 4:00am JAIL LAB WORK April 28, 2024 5:00am LABWORK May 05, 2024 5 :00am 8 mo fu May 10, 2024 2:34pm JAIL LAB WORK May 12 5:00am JAIL LAB WORK May 19 5:00am JAIL LAB WORK June 09, 2024 5 :00am Chief Complaint Admit Date JAIL LAB WORK March 10 4:00am LABWORK March 17, 2024 5:00am LABWORK March 19, 2024 5:00am LABWORK March 25, 2024 5:00am JAIL LAB WORK March 26 5:00am JAIL LAB WORK March 29 5:00am JAIL LAB WORK April 05, 2024 5:00am JAIL LAB WORK April 06, 2024 5:00am LABWORK April 09, 2024 5 :00am JAIL LAB WORK April 14, 2024 4:00am JAIL LAB WORK April 28, 2024 5:00am LABWORK May 05, 2024 5 :00am 8 mo fu May 10, 2024 2:34pm JAIL LAB WORK May 12 5:00am JAIL LAB WORK May 19 5:00am JAIL LAB WORK June 09, 2024 5 :00am JAIL LAB WORK June 16, 2024 5 :00am [...] Admit Date LABWORK March 25, 2024 5:00am JAIL LAB WORK March 26 5:00am JAIL LAB WORK March 29 5:00am JAIL LAB WORK April 05, 2024 5:00am JAIL LAB WORK April 06, 2024 5:00am LABWORK April 09, 2024 5 :00am JAIL LAB WORK April 14, 2024 4:00am JAIL LAB WORK April 28, 2024 5:00am LABWORK May 05, 2024 5 :00am 8 mo fu May 10, 2024 2:34pm JAIL LAB WORK May 12 5:00am JAIL LAB WORK May 19 5:00am JAIL LAB WORK June 09, 2024 5 :00am JAIL LAB WORK June 16, 2024 5 :00am 1 Y FU July 01, 2024 10:3 5am JAIL LAB WORK July 19, 2024 4 :00am Chief Complaint Admit Date JAIL LAB WORK May 12 5:00am JAIL LAB WORK May 19 5:00am JAIL LAB WORK June 09, 2024 5 :00am JAIL LAB WORK June 16, 2024 5 :00am 1 Y FU July 01, 2024 10:3 5am JAIL LAB WORK July 19, 2024 4 :00am JAIL LAB WORK August 18, 2024 5:0 0am SEIZURE September 08, 2024 12:2 0pm Reason for Visit Admit Date Longstanding persistent atrial fibrillat ion July 01, 2024 10:35am Essential (primary) hypertension July 012024 10:35am History of coronary artery stent placeme nt July 01, 2024 10:35am Chief Complaint Admit Date JAIL LAB WORK May 19 5:00am JAIL LAB WORK June 09, 2024 5 :00am JAIL LAB WORK June 16, 2024 5 :00am 1 Y FU July 01, 2024 10:3 5am JAIL LAB WORK July 19, 2024 4 :00am JAIL LAB WORK August 18, 2024 5:0 0am SEIZURE September 08, 2024 12:2 0pm Chief Complaint Admit Date JAIL LAB WORK May 19 5:00am JAIL LAB WORK June 09, 2024 5 :00am JAIL LAB WORK June 16, 2024 5 :00am 1 Y FU July 01, 2024 10:3 5am JAIL LAB WORK July 19, 2024 4 :00am JAIL LAB WORK August 18, 2024 5:0 0am SEIZURE September 08, 2024 12:2 0pm STROKE VS SEIZURE September 10, 2024 4:03 pm Chief Complaint Admit Date JAIL LAB WORK May 19 5:00am JAIL LAB WORK June 09, 2024 5 :00am JAIL LAB WORK June 16, 2024 5 :00am 1 Y FU July 01, 2024 10:3 5am [facility] WORK July 19, 2024 4 :00am [facility] WORK August 18, 2024 5:0 0am [...] 2024 4 :03pm Chief Complaint Admit Date [facility] WORK May 19 5:00am [facility] WORK June 09, 2024 5 :00am [facility] WORK June 16, 2024 5 :00am 1 Y FU July 01, 2024 10:3 5am [facility] WORK July 19, 2024 4 :00am [facility] WORK August 18, 2024 5:0 0am SEIZURE September 08, 2024 12:2 0pm STROKE VS SEIZURE September 10, 2024 4:03 pm STROKE VS SEIZURE September 11, 2024 12:1 4pm 2 SEIZURES/ IN [facility] September 13, 2024 2:04 pm EORDERS [...] content) DATE CREATED AUTHOR 02/04/2018 Nolan Terry [facility] DATE CREATED AUTHOR AUTHOR'S DEVON GUTIÉRREZ 11/12/2019 [facility] DATE CREATED AUTHOR AUTHOR'S ORGANIZ ATION 06/26/2023 [facility] DATE CREATED AUTHOR AUTHOR'S ORGANIZ ATION 10/25/2024 [facility] Source Comments (unrecognize d section and content) In the event this informatio n is protected by the Federal Confidentiality of Alcohol and Drug Abuse Patient Records regulations: The Federal rules restrict any use of the information to criminally investigate or prosecute any alcohol or drug abuse patient.[facility] [place] the event this information is protected by the Federal Confidentiality of Alcohol and Drug Abuse Patient Records regulations: The Federal rules restrict any use of the information to criminally investigate or prosecute any alcohol or drug abuse patient.[facility] [place] the event this information is protected by the Federal Confidentiality of Alcohol and Drug Abuse Patient Records regulations: The Federal rules restrict any use of the information to criminally investigate or prosecute any alcohol or drug abuse patient.[facility] [place] the event this information is protected by the Federal Confidentiality of Alcohol and Drug Abuse Patient Records regulations: The Federal rules restrict any use of the information to criminally investigate or prosecute any alcohol or drug abuse patient.[facility] [place] the event this information is protected by the Federal Confidentiality of Alcohol and Drug Abuse Patient Records regulations: The Federal rules restrict any use of the information to criminally investigate or prosecute any alcohol or drug abuse patient.[facility] [place] Reason for Visit (unrecogniz ed section and content) Reason Onset Date Comments Refill Request Refill Request 11/11/2019 Reason Comments Arm Injury Pt arrives via [employer] ambulance from [facility] with complaints of right elbow fracture. Patient was sent here for ortho consult. No pain on arrival. Arrives with right arm splinted. Specialty Diagnoses / Procedures Referred By Ana bo Referred To Contact Diagnoses Closed displaced fracture of medial condyle of right humerus, initial encounter Procedures .. Jayshree Cortez MD [address] [place] [address] [facility] Emergency Dept [address] [place] [id number] Referral ID Status Reason Start Date Expiration Date Visits Re quested Visits Authorized [id number] 1 1 Telephone Encounter - Anne Marie [...] Visit date not found Patient Phone numbers: [phone] (home) Request is for script(s) to be [...] July 19, 2024 End: July 19, 2024 eCsar MARTINEZ MD Attending Provider Active St art: July 19, 2024 End: July 19, 2024 Cesar MARTINEZ MD Referring Provider Active St art: July 19, 2024 End: July 19, 2024 Team Status: Inactive Member Role Status Dates Dr. lAexandra Hagen MD Primary Care Provider Active Start: [...] MD Primary Care Provider Active Suze Prebish STUDIO TECHNICIAN VIDEO OPERATOR, STUDIO TECHNICIAN VIDEO OPERATOR-C Attending Provider, Referring Pr ovider Active [...] Rosemary Doran MD Primary Care Provider Active Field Service Coordinator Relationship Specialty Start Date End Date Alexandra Hagen [address] [facility] [[email or web address] [address] [place] [address] PCP - General Family Medicine 06/20/23 Team [...] 13, 2024 End: September 13, 2024 Dr. Annat Juarez MD Referring Provider Active Start: September [...] Transfer Provider - Reason: Patient not available)2025 ([facility] Unhold - Provider: Automatic Transfer Provider)2126 (Given - Provider: Kirsty Vicente RN) 0837 (Given - Provider: Leona Sidhu RN)2147 (Given - Provider: Kirsty Vicente RN) 0924 (Given - Provider: Juanjo Villalba, JAYME) metoprolol tartrate (Lopressor) tablet 25 mg 25 mg, Oral, 2 times daily, First dose on Fri06/17/23 at 2145 0840 (Given - Provider: Odessa Wayne RN)151 (MAR Hold - Provider: Automatic Transfer Provider - Reason: Patient not available)2025 ([facility] Unhold - Provider: Automatic Transfer Provider)2126 [...] Provider: Yvan Sepulveda RN - Reason: NPO)151 (MAR Hold - Provider: Automatic Transfer Provider - Reason: Patient not available)2025 ([facility] Unhold - Provider: Automatic Transfer Provider) [...] from all sources in 24 hours. 1511 ([facility] Hold - Provider: Automatic Transfer Provider - Reason: Patient not available)2025 ([facility] Unhold - Provider: Automatic Transfer Provider) acetaminophen (Tylenol) tablet 650 mg(Linked Group 2) 650 mg, Oral, Every 6 hours PRN, mild pain (1-3), fever, For temp greater than 100.4 F (38 C), Starting on Fri06/16/23 at 1639, Maximum dose of acetaminophen is 4000 mg from all sources in 24 hours. 1511 ([facility] Hold - Provider: Automatic Transfer Provider - Reason: Patient not available)2025 ([facility] Unhold - Provider: Automatic Transfer Provider) dextrose 5 % infusion 100 mL/hr, IntraVENous, PRN, Blood sugar less than 70mg/dL, Starting on Fri06/17/23 at 2131, Start infusion following administration of dextrose 50% or glucagon. 1511 ([facility] Hold - Provider: Automatic Transfer Provider - Reason: Patient not available)2025 ([facility] Unhold - Provider: Automatic Transfer Provider) [...] Glucostabilizer, dose as instructed per system. 1511 ([facility] Hold - Provider: Automatic Transfer Provider - Reason: Patient not available)2025 ([facility] Unhold - Provider: Automatic Transfer Provider) [...] 15 minutes x2 and notify provider. 1511 ([facility] Hold - Provider: Automatic Transfer Provider - Reason: Patient not available)2025 ([facility] Unhold - Provider: Automatic Transfer Provider) [...] 15 minutes x2 and notify provider. 1511 ([facility] Hold - Provider: Automatic Transfer Provider - Reason: Patient not available)2025 ([facility] Unhold - Provider: Automatic Transfer Provider) [...] of each other unless specifically ordered. 1511 ([facility] Hold - Provider: Automatic Transfer Provider - Reason: Patient not available)2025 ([facility] Unhold - Provider: Automatic Transfer Provider) naloxone (Narcan) injection 0.4 mg 0.4 mg, IntraVENous, Every 5 min PRN, opioid reversal, respiratory depression, Starting on Fri06/16/23 at 1647, +++ For RR <10, pinpoint pupils, over sedation for opioid reversal - MUST notify instructional supervisor provider immediately after first dose, may give IM or SQ if no IV access +++ 1511 ([facility] Hold - Provider: Automatic Transfer Provider - Reason: Patient not available)2025 ([facility] Unhold - Provider: Automatic Transfer Provider) ondansetron (Zofran) injection 4 mg(Linked Group 3) 4 mg, IntraVENous, Every 6 hours PRN, nausea, vomiting, Starting on 06/16/23 at 1639, 1st Line. Give IV if patient is unable to take orally. If inadequate response within 60 minutes, proceed to next-line agent or contact provider if no further options ordered. 1511 ([facility] Hold - Provider: Automatic Transfer Provider - Reason: Patient not available)2025 ([facility] Unhold - Provider: Automatic Transfer Provider) [...] blister pack until just before administering. 1511 ([facility] Hold - Provider: Automatic Transfer Provider - Reason: Patient not available)2025 ([facility] Unhold - Provider: Automatic Transfer Provider) oxyCODONE (Roxicodone) immediate release tablet 2.5 mg(Linked Group 4) 2.5 mg, Oral, Every 4 hours PRN, moderate pain (4-6), Starting on Fri06/16/23 at 1639 151 ([facility] Hold - Provider: Automatic Transfer Provider - Reason: Patient not available)2025 ([facility] Unhold - Provider: Automatic Transfer Provider) 0924 (See Alternative - Provider: Juanjo Villalba, RN) oxyCODONE (Roxicodone) immediate release tablet 5 mg(Linked Group 4) 5 mg, Oral, Every 4 hours PRN, severe pain (7-10), Starting on Fri06/16/23 at 1639 151 ([facility] Hold - Provider: Automatic Transfer Provider - Reason: Patient not available)2025 ([facility] Unhold - Provider: Automatic Transfer Provider) [...] BE BASED ON THE PRIMARY CLINICAL RECORDS. [facility]. provides no warranty or guarantee of the accuracy or completeness of information in this document.
[2024-11-08 09:02] LABS: INR Fingerstick 2.8
== END ==
PROVIDERS: Visit Provider Family Medicine
DX: Z79.01 Long term (current) use 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 (principal)
CPT/HCPCS: 36416; 85610

== ENCOUNTER → 2024-11-22 | Outpatient (CLI) | payer MEDICARE, SELFPAY ==
--- NOTE | 2024-11-22 09:09 | VDLE_ITS ---
Reason For Study Reason For Study: LLE Swelling RIGHT LEFT CFV is compressible, spontaneous, phasic, competent GSV is normal. and demonstrates normal augmentation. CFV is compressible, spontaneous, phasic, competent, Procedure and demonstrates normal augmentation. This is a venous duplex using B-mode, color flow and FV is compressible, spontaneous, phasic, competent spectral Doppler. and demonstrates normal augmentation. Exam performed in department. POP V is compressible, spontaneous, phasic, competent The exam was diagnostic. and demonstrates normal augmentation. A preliminary report was called and/or faxed to T/P Trunk is compressible. [facility]. PTV is compressible. LT PerV is compressible. VL/Venous Duplex US, Unilateral Interpretation Summary Deep veins of the left lower extremity are patent and compressible segmentally. There is no evidence of left lower extremity deep vein thrombosis. Valvular competence appears intact within the p roximal deep venous system on the left . The left great saphenous vein appears patent and compressible segmentally. The right common femoral vein is patent and compressible . Ordering Physician: Yinka Johnson Referring Physician: Yinka Johnson Performed By: Lucas Watts RVT
== END | disposition home or self-care (01) ==
LOC: CVS 09:09
PROVIDERS: Referring Provider Student in an Organized Health Care Education/Training Program; Visit Provider Student in an Organized Health Care Education/Training Program
DX: M79.89 Other specified soft tissue disorders (principal); M79.662 Pain in left lower leg
CPT/HCPCS: 93971

== ENCOUNTER → 2024-11-30 05:00 | Outpatient (REF) | payer MEDICARE, SELFPAY ==
[2024-11-30 08:46] LABS: INR Fingerstick 2.8
== END ==
PROVIDERS: Visit Provider Family Medicine
DX: Z79.01 Long term (current) use 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 (principal)
CPT/HCPCS: 36416; 85610

== ENCOUNTER → 2024-12-24 | Outpatient (REF) | payer MEDICARE, SELFPAY ==
--- OUTSIDE RECORDS SUMMARY | 2024-12-24 03:51 | XMS RPT_ITS | CCD ---
Author Organization [facility] Care Team Providers Care Managed Care Coordinator Name Role Phone LISHNEVSKI, ALEXIA Unavailable [...] Unavailable Villa Hebert Unavailable Patito Gonzalez Unavailable [phone] Nirmal Kemp Unavailable Mohan Álvarez Unavailable Bishop, Rickey Clive Unavailable Rosemary Doran Primary Care Provider Lishnnéstorski, Alexia Primary Care Provider Zenaida Henderson Unavailable Dr. Rosemary Doran Primary Care Provider Dr. Rosemary Doran Referring Provider Roof IMMIGRATION INSPECTOR, IMMIGRATION INSPECTOR-Adeel Arnett Attending Provider Dr. Rosemary Doran Primary [...] Dr. Alexandra Leger Primary Care Provider Dr. Kvng Ochoa MD Attending Provider Unavail able Dr. Kvng Ochoa MD Referring Provider Unavail able Cesar Cole MD Attending Provider Unavailable Dr. Rosemary Doran MD Referring Provider Jerrica LENNON, Dr. Ny Attending Provider Anant Juarez MD Attending Provider Unavailab kamari Hagen MD, Dr. Alexandra Leger Primary Care Provider Dr. Kvng Ochoa MD [...] Dr. Matthew Oro DO Other Provider [phone] Neymar LENNON, Dr. Davalos Attending Provider [phone] Kvng Ochoa DO Referring Provider Jerrica LENNON, Dr. Ny Attending Provider [phone] Dr. Anant Juarez MD Referring Provider Dr. Alexandra Hagen MD Primary Care Provider Douglas LENNON, Cesar Attending Provider Unavailable Dr. Kvng Ochoa MD Attending Provider Unavail able Dr. Kvng Ochoa MD Referring Provider Unavail able Yinka Gipson Attending Provider Yinka Gipson Referring Provider Kvng Whalen Primary Care Unavailable Blackmon, Anoop Attending Unavailable Neymar, Anoop Referring Unavailable Kvng Ochoa Primary Care Unavailable Demiter, Yinka Referring Unavailable Demiter, Yinka Attending Unavailable Jolliff, Alexandra S Primary Care Unavailable Kvng Whalen Attending Unavailable Kvng Ochoa Primary Care Unavailable Douglas, [place] Attending Unavailable Douglas, Cesar Attending Unavailable Jolliff, Alexandra S Primary Care Unavailable Jolliff, Alexandra S Primary Care Unavailable Kvng Whalen Attending Unavailable Kvng Whalen Attending Unavailable Jolliff, Alexandra S Primary Care Unavailable Kvng Ochoa Primary Care Unavailable Kvng Ochoa Referring Unavailable Demiter, Yinka Attending Unavailable Jolliff, Alexandra S Primary Care Unavailable Kvng Whalen Attending Unavailable Kvng Whalen Referring Unavailable Kvng Whalen Attending Unavailable Jolliff, Alexandra S Primary Care Unavailable Kvng Whalen Attending Unavailable Jolliff, Alexandra S Primary Care Unavailable Jolliff, Alexandra S Primary Care Unavailable Kvng Whalen Attending Unavailable Jolliff, Alexandra S Primary Care Unavailable Kvng Whalen Referring Unavailable Kvng Whalen Attending Unavailable Jolliff, Alexandra S Primary Care Unavailable Kvng Whalen Attending Unavailable Douglas, [place] Referring Unavailable Douglas, [place] Attending Unavailable Jolliff, Alexandra S Primary Care Unavailable Kvng Whalen Attending Unavailable Jolliff, Alexandra S Primary Care Unavailable Douglas, Cesar Attending Unavailable Jolliff, Alexandra S Primary Care Unavailable Don, Kvng Primary Care Unavailable Ochoa OLS, Kvng Attending Unavailable Ochoa, Kvng Primary Care Unavailable Anant Juarez Referring Unavailable Anant Juarez Attending Unavailable Ochoa, Kvng Primary Care Unavailable Ochoa JUAN, Kvng Attending Unavailable Ochoa JUAN, Kvng Referring Unavailable Cesar Cole Attending Unavailable Jolliff, Alexandra S Primary Care Unavailable Ochoa, Kvng Primary Care Unavailable Adeli, Amir Consulting Unavailable Preethi, Matthew Admitting Unavailable Matthew Oro Attending Unavailable Gillian, Janett Consulting Unavailable Carpenter, Julia Consulting Unavailable Mindjayleen Keyshawn Consulting Unavailable Jadon Dmitriy Consulting Unavailable Delvis, Kmysingh Consulting Unavailable JULITA, CEDILLO Consulting Unavailable BeThierno webert Consulting Unavailable Flynn, Lorelei Consulting Unavailable Khandker, Robinson Consulting Unavailable Maturu, Aura Consulting Unavailable Mervat, Eric Consulting Unavailable Hinduja, Camila Consulting Unavailable Kavon, Glenna Consulting Unavailable Joi, Lenin Consulting Unavailable Alexandra, Ml Consulting Unavailable Bittar, Chauncey Consulting Unavailable Nirmal Hummel Consulting Unavailable Rubén Michel Consulting Unavailable Ridha, Mohamed Consulting Unavailable Liz Merrillzat Consulting UnavailBala Iqbal Consulting Unavailable Castillo Jones Consulting Unavailable Daniel Leroy Consulting Unavailable Cindy Horn Consulting Unavailable Ashu Leonard Consulting Unavailable Ochoa, Kvng Primary Care Unavailable Don MARTINEZ, Kvng Attending Unavailable Ochoa, Kvng Primary Care Unavailable Don MARTINEZ, Kvng Attending Unavailable Don MARTINEZ, Kvng Referring Unavailable Xiao, Alexandra S Primary Care Unavailable Don MARTINEZ, Kvng Attending Unavailable Ochoa, Kvng Primary Care Unavailable Adeli, Amir Consulting Unavailable Matthew Oro Admitting Unavailable Matthew Oro Attending Unavailable Gillian, Janett Consulting Unavailable Carpenter, Julia Consulting Unavailable Ron Swansse Consulting Unavailable Jadon, Dmitriy Consulting Unavailable Edmondson, Jaysingh Consulting Unavailable JULITA, CEDILLO Consulting Unavailable Betia, Cara Consulting Unavailable Flynn, Lorelei Consulting Unavailable Khandker, Robinson Consulting Unavailable Maturu, Aura Consulting Unavailable Mervat, Eric Consulting Unavailable Hinduja, Camila Consulting Unavailable Kavon, Glenna Consulting Unavailable Joi, Lenin Consulting Unavailable Alexandra, Ml Consulting Unavailable Bittar, Chauncey Consulting Unavailable Nirmal Hummel Consulting Unavailable GuslerRubén Consulting Unavailable Ridha, Mohamed Consulting Unavailable Desirae, Denyd Kevyn Consulting UnavailBala Iqbal Consulting Unavailable Jones, Rami Consulting Unavailable Mariaa, Daniel Consulting Unavailable Cindy Horn Consulting Unavailable Ashu Leonard Consulting Unavailable Matthew Oro Consulting Unavailable Anant Juarez Attending Unavailable Rosemary Doran Referring Unavailable Jolliff, Alexandra S Primary Care Unavailable OchoaKvng Referring Unavailable Ochoa, Kvng Primary Care Unavailable Baddour, Anant Attending Unavailable Jolliff, Alexandra S Referring Unavailable Douglas, Cesar Attending Unavailable Jolliff, Alexandra S Primary Care Unavailable Jolliff, Alexandra S Primary Care Unavailable Ochoa OLS, Kvng Attending Unavailable Jolliff, Alexandra S Primary Care Unavailable Ochoa OLS, Kvng Attending Unavailable Ochoa OLS, Kvng Attending Unavailable Jolliff, Alexandra S Primary Care Unavailable Ochoa OLS, Kvng Attending Unavailable Jolliff, Alexandra S Primary Care Unavailable Douglas, Cesar Attending Unavailable Ochoa, Kvng Primary Care Unavailable Jolliff, Alexandra S Primary Care Unavailable Ochoa OLS, Kvng Attending Unavailable Jolliff, Alexandra S Primary Care Unavailable Ochoa OLS, Kvng Attending Unavailable Baddour, Anant Attending Unavailable Jolliff, Alexandra S Primary Care Unavailable Jolliff, Alexandra S Primary Care Unavailable Ochoa OLS, Kvng Attending Unavailable Jolliff, Alexandra S Primary Care Unavailable Ochoa OLS, Kvng Attending Unavailable Jolliff, Alexandra S Primary Care Unavailable Ochoa OLS, Kvng Attending Unavailable Ochoa, Kvng Primary Care Unavailable Ochoa OLS, Kvng Attending Unavailable Ochoa, Kvng Primary Care Unavailable Douglas, [place] Attending Unavailable Allergies Allergy Classification Reported Allergen(s) Allergy Type Date of Onset Reaction(s) Facility (20 sources) atorvastatin; 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: [ATORVASTATIN] Drug Allergy 5 Other: See Comments [facility] (20 sources) codeine; 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: [CODEINE] Drug Allergy 5 Unknown [facility] (20 sources) Latex; 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: [LATEX] Propensity to adverse reactions (disorder) 5 Rash, Itching [facility] (20 sources) meperidine; 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: [MEPERIDINE] Drug Allergy 5 GI Upset [facility] (20 sources) rosuvastatin; 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: [ROSUVASTATIN] Drug Allergy 5 Other: See Comments [facility] (20 sources) Amiodarone Drug Allergy 2 Hair falling out in gobs, hair loss [facility] (1 source) Amiodarone Drug Allergy 5 [facility] Repository Medications Current Medications Medication Drug Class(es) Dates Sig (Normalized) Sig (Original) 8 hr acetaminophen 650 mg extended release oral tablet (12 sources) Start: 09-08-2024 take 1 tablet by [...] mg ascorbic acid 250 mg oral tablet (20 sources) Vitamin C Start: 05-19-2023 take 1 [...] 10:31am diclofenac sodium 0.01 mg/mg topical gel (6 sources) Nonsteroidal Anti-inflammatory Drug Start: 09-10-2024 Diclofenac [...] 06/30/2023 Active irbesartan 300 mg oral tablet (8 sources) Angiotensin 2 Receptor Antonio Start: 09-08-2024 take 1 tablet by mouth once daily Irbesartan 300 mg tablet Active 300 mg PO DAILY September 08, 2024 12:00am levETIRAcetam 500 mg oral tablet (20 sources) Start: 09-11-2024 End: 09-13-2024 take 1 tablet by mouth twice daily Levetiracetam (Keppra) 500 mg tablet Active 500 mg PO TWICE A DAY 60 30 3 September 13, 2024 2:54pm Start: 01-20-2023 End: 01-23-2023 take 1 tablet by mouth twice daily Levetiracetam 250 mg tablet Discontinued 250 mg PO TWICE A DAY 60 5 January 20, 2023 8:57am January 23, 2023 [...] daily 25 mg, Oral, 2 times d aily, First [...] 24 hr Discontinued 100 mg PO DAILY 90 January 22, 2021 9:45am January 31, 2021 [...] by mouth daily. 0 Active Multivitamin capsule (14 sources) Start: 0 Multivitamin capsule Active 1 [...] 11:00pm nitrofurantoin, macrocrystals 100 mg oral capsule (4 sources) Nitrofuran Antibacterial Start: 09-13-2024 take 1 capsule by mouth twice daily at mealtime Nitrofurantoin Macrocrystal 100 mg capsule Active 100 mg PO TWICE A DAY 20 0 September 13, 2024 12:00am must administer with a meal/food omeprazole 20 mg delayed release oral capsule (20 sources) Proton Pump Inhibitor Start: 11-14-2022 take 1 capsule by mouth once daily Omeprazole 20 mg capsule,delayed release(DR/EC) Active 20 mg PO DAILY November 14, 2022 12:00am reflux Start: 01-31-2021 End: 10-18-2021 take 1 capsule [...] 0 Active ondansetron 4 mg oral tablet (6 sources) Serotonin-3 Receptor Antagonist Start: 09-10-2024 take [...] release tablet 2.5 mg polyethylene glycol 3350 31041 mg powder for oral solution (4 sources) [...] mg PO .QTUWEFR September 10, 2024 12:00am Please contact the information source for Protocol details. Start: 04-07-2024 End: 04-30-2024 Warfarin 3 mg tablet Discont inued 3 mg PO .QMOTHSASU 90 1 April 07, 2024 5:46pm April 30, 2024 3:51pm Please contact the information source for Protocol details. Start: 06-19-2023 warfarin (Coum rodrigo) tablet 5 mg Start: 10-15-2022 End: 09-10-2024 Warfarin 2.5 mg tablet Disco ntinued 2.5 mg PO .QTUWEFR 90 3 April 30, 2024 3:49pm September 10, 2024 [...] PO every Friday, , , Sat 60 4 January 10, 2020 11:16am January 31, 2020 11:07pm take as directed and patient request that you use the easy cap, Please contact the information source for Protocol details. Start: 07-14-2019 End: 10-15-2022 Warfarin 2 MG tablet Discont inued 2 mg PO MOWEFR October 11, 2019 12:00am January 10, 2020 11:22am [...] 6 HOURS NEEDED as needed for Pain 12 3 0 August 11, 2020 January 31, 2021 8:41am Closed fracture of inferior pubic ramus Start: 08-11-2020 End: 01-31-2021 take 1 tablet by mouth every six hours as needed Hydrocodone-Acetaminophen Discontinued 1 TABLET PO EVERY 6 HOURS NEEDED 12 3 August 11, 2020 January 31, 2021 8:41am acetaminophen 325 mg / oxyCODONE hydrochloride 5 mg oral tablet (20 sources) Opioid Agonist Start: 04-19-2020 End: 04-24-2020 Oxycodone-Acetaminophen 1 TABLET tablet Discontinued 1 {tbl} PO EVERY 6 HOURS NEEDED as needed for Back pain 20 5 0 April 19, 2020 April 23, 2020 1:00am April 24, 2020 1:03am Closed 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 lumbar 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 Chronic kidney disease 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 Chronic kidney disease, unspecified Start: 04-19-2020 End: 04-24-2020 take 1 tablet by mouth every six hours as needed Oxycodone-Acetaminophen Discontinued 1 TABLET PO EVERY 6 HOURS NEEDED 20 5 April 19, 2020 April 24, 2020 1:03am amiodarone [...] 200 mg PO TWICE A DAY 60 11 December 30, 2019 12:00am February 28, 2020 5:40pm amLODIPine 10 mg oral tablet (10 sources) Dihydropyridine Calcium Channel Antonio Start: 07-01-2024 [...] Tablet,Chewable Discontinued 81 mg PO WITH BREAKFAST 30 30 0 December 28, 2022 12:00am January 20, 2023 [...] mg tablet Discontinued 75 mg PO DAILY 30 December 23, 2019 12:00am December 28, 2019 2:23pm donepezil hydrochloride 10 mg oral tablet (20 sources) Start: 09-19-19 End: 05-10-19 take 1 tablet by mouth at bedtime Donepezil 10 mg tablet Discontinued 10 mg PO AT BEDTIME 30 September 22, 2023 3:14pm May 10, 2024 4:21pm Start: 09-18-2022 End: 11-14-2022 take 1 tablet by mouth at bedtime Donepezil 5 mg tablet Discontinued 5 mg PO AT BEDTIME September 18, 2022 12:00am November 14, 2022 4:14pm fluticasone propionate 0.05 mg/actuat metered dose nasal spray (20 sources) Corticosteroid Start: 01-20-2023 End: 05-15-2023 Fluticasone [...] mg tablet Discontinued 40 mg PO DAILY 3 December 10, 2019 2:19pm October 15, 2022 [...] 50 mg PO TWICE A DAY 120 8 September 22, 2023 3:14pm May 10, 2024 [...] NEEDED as needed for pain 12 3 0 February 11, 2022 2:49am October 15, 2022 9:33am Nonspecific chest pain Chest pain, unspecified ubidecarenone 100 mg oral capsule (20 sources) Start: 0 End: 0 Coenzyme Q10 (Co Q-10) 100 mg capsule Discontinued 100 mg PO DAILY December 10, 2019 12:00am December 10, 2019 1:45pm ubidecarenone (COQ-10 ORAL) (1 source) take 1 capsule by mouth once daily ubidecarenone (COQ-10 ORAL) Take 1 capsule by mouth once daily. 0 Active Comment on above: Take 1 capsule by mo ut once daily. 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; 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: [detention (current) use 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] Onset: 09-10-2024 Episodic Other and unspecified benign neoplasm (5 sources) Tubular adenoma of colon; 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: [Tubular adenoma of colon] 12-11-2016 Episodic Other connective tissue disease (5 sources) History of total knee arthroplasty; 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: [History of knee replacement, total] Onset: 02-09-2016 11-13-2016 Chronic Other connective tissue disease (2 sources) Swelling of left lower limb; 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: [Other specified soft tissue disorders] 11-22-2024 Episodic Other connective tissue disease (2 sources) Pain of left lower leg; 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: [Pain in left lower leg] 11-22-2024 Episodic Other connective tissue disease (1 source) Other specified soft tissue disorders; 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: [Other specified soft tissue disorders] Onset: 11-26-2024 Episodic Other connective tissue disease (5 sources) Tendinitis [...] Acute confusion; 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: [Disorientation, unspecified] 09-16-2022 Episodic Residual codes; unclassified (4 sources) Edema of lower extremity; 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: [Localized edema] 11-22-2024 Episodic Spondylosis; intervertebral disc disorders; other back problems (5 sources) Spinal stenosis; 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: [Spinal stenosis] 05-19-2015 Episodic Syncope (16 sources) Syncope; 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: [Syncope and collapse] 06-16-2023 [...] unspecified; Translations: [Chronic atrial fibrillation, unspecified] Onset: 11-22-2024 Urinary tract infections (4 sources) Urinary tract infectious disease; Translations: [Urinary tract infection, site not specified] 09-22-2024 Episodic Past or Other Problems Problem Classification Problem Date Documented Da te Episodic/Chronic Biliary tract disease (5 sources) Biliary calculus; Translations: [Asymptomatic cholelithiasis] Onset: 6 12-18-2015 Episodic Coronary atherosclerosis and other heart disease (20 sources) History of placement of stent for coronary artery disease; Translations: [Presence of coronary angioplasty implant and graft] Onset: 7 11-24-2015 Episodic Other aftercare (1 source) Other superintendent container terminal (current) drug therapy; Translations: [Other superintendent container terminal (current) drug therapy] Onset: 5 Episodic Other [...] Test Name Value Interpretation Reference Range Facility Venous duplex ultrasound rep ortOrdered By: Jamal Bruce on 11-23-2024 US Vein [facility] [address] [place] [id number] Venous Duplex US, Unilateral 11/22/24 0921 MR#: [id number] Acct: [id number] Name: EZRA GONZALEZ Rep #:[id number] : 1935 89 From: Jamal Bruce MD Attending Dr: NADIA Mcdonald atus: REG CLI Ordering Dr: Yinka Johnson Date: 11/22/24 Location: [facility] Sex: F C Admitted: Reason For Study Reason For Study: LLE Swelling RIGHT LEFT CFV is compressible, spontaneous, phasic, competent GSV is normal. and demonstrates normal augmentation. CFV is compressible, spontaneous, phasic, competent, Procedure and demonstrates normal augmentation. This is a venous duplex using B-mode, color flow and FV is compressible, spontaneous, phasic, competent spectral Doppler. and demonstrates normal augmentation. Exam performed in department. POP V is compressible, spontaneous, phasic, competent The exam was diagnostic. and demonstrates normal augmentation. A preliminary report was called and/or faxed to T/P Trunk is compressible. [facility]. PTV is compressible. LT PerV is compressible. VL/Venous Duplex US, Unilateral Interpretation Summary Deep veins of the left lower extremity are patent and compressible segmentally. There is no evidence of left lower extremity deep vein thrombosis. Valvular competence appears intact within the proximal deep venous system on the left . The left great saphenous vein appears patent and compressible segmentally. The right common femoral vein is patent and compressible . Ordering Physician: Yinka Johnson Referring Physician: Yinka Johnson Performed By: Lucas Watts, T 11/23/242215 Date _ Jamal Bruce MD CC: Dr. Kvng Ochoa, DO; NADAI Mcdonald ~ Date Dictated: 11/22/24920 Date Transcribed: 11/23/242215 Manager Gas: Signed [facility] Other Phone: Cardiology Visit Reporton Cardiology Visit Report [facility] [address] [place] [address] OFFICE VISIT Date of Service: 11/22/24 MR#: [id number] Acct: [id number] Name: EZRA GONZALEZ #: [id number] : 1935 Provider: NADIA Mcdonald Age/Sex: 89/F Location: [facility] Status: Signed HPI HPI History of Present Illness Details: Ezra Gonzalez is an 89-year-old female who presents to office today with concerns of left foot and ankle swelling since falling in her bathroom and hitting her chest on the sink a few weeks ago. She reports she was going to the bathroom when she lost her balance. Her INR has been within normal range over the last several months. She reports back pain and chest pain with taking deep breaths for a couple weeks. Patient has a history of coronary artery disease status post previous angioplasty and stenting in 2006. In 2011 she developed persistent atrial fibrillation underwent atrial fibrillation ablation with isolation of the pulmonary veins. In 2015, she underwent pharmacological stress test that demonstrated a fixed defect in the apical and apical lateral segments. Her ejection fraction was noted to be preserved. In November 2019, she underwent cardiac catheterization which demonstrated moderate disease involving the LAD and circumflex distribution and mild disease in the RCA. Coronary calcification was present and medical therapy was recommended. She reverted back into atrial fibrillation. She resides at [facility]. Upon presentation today, patient reports back pain and chest pain has significantly improved and finally seems to be almost resolved. She denies SOB; however, reports difficulties taking in a deep breath for about 2 weeks after her fall secondary to pain. She reports her PCP completed a CXR and she denies any known abnormal findings. Patient denies any LE edema prior to her fall and a few days ago, she noticed LLE edema starting. She has been less mobile since her fall, using her walker less; however, is active in physical therapy. She denies any known significant bruising from her fall. She also reports incontinence of bladder that she describes knowing she has to go but difficulties making it there quick enough. She denies any change in urinary frequency, denies any burning with urination, denies any fevers, chills, or body aches. Further ROS below. Intake Vital Signs 09/13/24 14:00 11/22/24 07:12 Height 5 ft 3 in 5 ft 3 in Weight: 174 lb BMI 30.8 BP 125/80 H Blood Pressure Location Lt brachial Position Sitting Respiration 20 H Pulse 84 Pulse Source Monitor Pulse Oximetry (%) 95 Intake Visit Reasons: See clinical notes; L.L> Annual Giving Officer Required: No Is patient in pain?: No Allergies latex Allergy (Verified 11/22/24 08:22) rash amiodarone Adverse Reaction (Severe, Verified 11/22/24 08:22) hair loss atorvastatin (From Lipitor) Adverse Reaction (Verified 11/22/24 08:22) myalgia codeine Adverse Reaction (Verified 11/22/24 08:22) Nausea meperidine (From Demerol) Adverse Reaction (Verified 11/22/24 08:22) Nausea/Vom/Diarrhea rosuvastatin (From Crestor) Adverse Reaction (Verified 11/22/24 08:22) myalgia Medications ???Medication ???Instructions ???Recorded ???Confirmed ???Type multivitamin 1 cap PO DAILY 12/10/19 09/10/24 H istory omeprazole 20 mg capsule,delayed 20 mg PO DAILY reflux 11/14/22 History release atorvastatin 40 mg tablet 40 mg PO QHS 01/20/23 09/10/24 His tory ascorbic acid (vitamin C) 250 mg 250 mg PO DAILY 05/19/23 09/10/24 History tablet diphenhydramine HCl 25 mg tablet 25 mg PO QHS PRN allergy symptoms 05/19/23 09/10/24 History (Allergy (diphenhydramine)) warfarin 3 mg tablet 3 mg PO .QMOTHSASU #90 tabs 11/22/24 Rx donepezil 10 mg tablet 10 mg PO QHS #30 tabs 05/10/24 Rx lamotrigine 25 mg tablet 50 mg (2 x 25 mg) PO BID #120 tabs 05/10/24 09/10/24 Rx acetaminophen 650 mg 650 mg PO Q8H 09/08/24 11/22/24 Hi story tablet,extended release (Tylenol Arthritis Pain) irbesartan 300 mg tablet 300 mg PO DAILY 09/08/24 09/10/24 History metoprolol succinate 50 mg 50 mg PO DAILY 09/08/24 09/10/24 H istory tablet,extended release 24 hr calcium 600 mg (as 2 tab PO DAILY 09/10/24 09/10/24 H istory carbonate)-vitamin D3 5 mcg (200 unit) tablet (Calcium 600 + D(3)) diclofenac sodium 1 % topical gel 2 g topical BID 09/10/24 09/10/24 History (Arthritis Pain (diclofenac)) ondansetron HCl 4 mg tablet 4 mg PO Q6H PRN nausea and vomitin g 09/10/24 09/10/24 History warfarin 2 mg tablet 2 mg PO .QTUWEFR 09/10/24 11/22/24 History levetiracetam 500 mg tablet 500 mg PO BID 30 days #60 tabs 09/13/24 Rx (Keppra) nitrofurantoin macrocrystal 100 mg 1 (more content not included)... Normal [facility] Venous Duplex US, Unilateral on 11-22-2024 Venous Duplex US, Unilateral [facility] [address] [place] [address] Venous Duplex US, Unilateral 11/22/24 0921 MR#: [id number] Acct: [id number] Name: EZRA GONZALEZ Rep #: [id number] : 1935 89 From: Jamal Bruce MD Attending Dr: NADIA Mcdonald Status: REG CL I Ordering Dr: Yinka Johnson Date: 11/22/24 Location: [facility] Sex: F C Admitted: Reason For Study Reason For Study: LLE Swelling RIGHT LEFT CFV is compressible, spontaneous, phasic, competent GSV is normal. and demonstrates normal augmentation. CFV is compressible, spontaneous, phasic, competent, Procedure and demonstrates normal augmentation. This is a venous duplex using B-mode, color flow and FV is compressible, spontaneous, phasic, competent spectral Doppler. and demonstrates normal augmentation. Exam performed in department. POP V is compressible, spontaneous, phasic, competent The exam was diagnostic. and demonstrates normal augmentation. A preliminary report was called and/or faxed to T/P Trunk is compressible. [facility]. PTV is compressible. LT PerV is compressible. VL/Venous Duplex US, Unilateral Interpretation Summary Deep veins of the left lower extremity are patent and compressible segmentally. There is no evidence of left lower extremity deep vein thrombosis. Valvular competence appears intact within the proximal deep venous system on the left . The left great saphenous vein appears patent and compressible segmentally. The right common femoral vein is patent and compressible . Ordering Physician: Yinka Johnson Referring Physician: Yinka Johnson Performed By: Lucas Watts, RVT 11/23/242215 Date Jamal [place] MD CC: Dr. Kvng Ochoa DO; NADIA Mcdonald Date Dictated: 11/22/24920 Date Transcribed: 11/23/242215 Manager Gas: Signed Normal [facility] normalized rat io (INR) measurement by fingerstickOrdered By: Kvng Ochoa on 11-08-2024 INR Coag (BldC) [Relative time] 2.8 [facility] Comment on above: Critical Value > 4.0 Whole blood prothrombin time Ordered By: Kvng Ochoa on 11-08-2024 PT Coag (Bld) [Time] 29.6 s High 11.7-14.9 [facility] normalized rat io (INR) calculationOrdered By: Kvng Ochoa on 10-25-2024 INR Coag (Bld) [Relative time] 3.3 {INR} [facility] Prothrombin timeOrdered By: Kvng Ochoa on 10-25-2024 PT Coag (PPP) [Time] 34.2 s High 11.7-14.9 [facility] normalized rat io (INR) measurement by fingerstickOrdered By: Kvng Ochoa on 10-11-2024 INR Coag (BldC) [Relative time] 2.8 [facility] Comment on above: Critical Value > 4.0 Whole blood prothrombin time Ordered By: Kvng Ochoa on 10-11-2024 PT Coag (Bld) [Time] 29.0 s High 11.7-14.9 [facility] normalized rat io (INR) measurement by fingerstickOrdered By: Cesar Cole on 10-04-2024 INR Coag (BldC) [Relative time] 3.4 [facility] Comment on above: Critical Value > 4.0 Whole blood prothrombin time Ordered By: Cesar Cole on 10-04-2024 PT Coag (Bld) [Time] 34.8 s High 11.7-14.9 [facility] normalized rat io (INR) measurement by fingerstickOrdered By: Cesar Cole on 09-24-2024 INR Coag (BldC) [Relative time] 2.0 [facility] Comment on above: Critical Value > 4.0 Whole blood prothrombin time Ordered By: Cesar Cole on 09-24-2024 PT Coag (Bld) [Time] 21.6 s High 11.7-14.9 [facility] Anion gap in Serum or Plasma Ordered By: Kvng Ochoa on 09-22-2024 Anion gap [Moles/Vol] 12 mmol/L 5-15 [facility] BUN/creatinine ratioOrdered By: Kvng Ochoa on 09-22-2024 Urea nitrogen/Creatinine [Mass ratio] 29.4 mg/mg High 10-20 [facility] Calculated very low density lipoprotein (VLDL) cholesterol measurementOrdered By: Kvng Ochoa on 09-22-2024 Calculated very low density lipoprotein (VLDL) cholesterol measurement 24 mg/dL 5-40 [facility] Carbon dioxide, total [Moles /volume] in Central venous bloodOrdered By: Kvng Ochoa on 09-22-2024 CO2 [Moles/Vol] 23.8 mmol/L 21.0-32.0 [facility] Chloride assayOrdered By: Costa Ochoa on 09-22-2024 Chloride [Moles/Vol] 105 mmol/L 98-108 [facility] Glomerular filtration rate ( GFR) estimation/1.73 sq m using serum, plasma, or whole bOrdered By: Kvng Ochoa on 09-22-2024 GFR/1.73 sq M.predicted among non-blacks MDRD (S/P/Bld) [Vol rate/Area] 52 mL/min/{1.73_m2} Low >60 [facility] Comment on above: mL/min/1.73m2 CKD-EP I Creatinine Equation (2020) LDL calc ser/plasOrdered By: Kvng Ochoa on 09-22-2024 Cholesterol in LDL [Mass/Vol] 109 mg/dL [facility] Comment on above: Skypnjncuk=308-635 m g/dL & Higher Fkhe=911 mg/dL or greater Potassium measurement (mass/ volume)Ordered By: Kvng Ochoa on 09-22-2024 Potassium (Unsp spec) [Mass/Vol] 4.8 mmol/L 3.3-5.1 [facility] Screening total cholesterol/ high density lipoprotein (HDL) cholesterol ratioOrdered By: Kvng Ochoa on 09-22-2024 Cholesterol.total/Cholest felipe in HDL [Mass ratio] 3.13 {ratio} [facility] Serum creatinine measurement (mass/volume)Ordered By: Kvng Ochoa on 09-22-2024 Creatinine [Mass/Vol] 1.03 mg/dL 0.70-1.20 [facility] Serum glucose measurement (m ass/volume)Ordered By: Kvng Ochoa on 09-22-2024 Glucose [Mass/Vol] 123 mg/dL High 70-99 [facility] Serum or plasma calcium viktoria urement (mass/volume)Ordered By: Kvng Ochoa on 09-22-2024 Calcium [Mass/Vol] 9.0 mg/dL 7.6-11.0 [facility] Serum or plasma cholesterol in HDL measurement (mass/volume)Ordered By: Kvng Ochoa on 09-22-2024 Cholesterol in HDL [Mass/Vol] 62 mg/dL >40 [facility] Comment on above: National Cholesterol Education Program (NCEP) guidelines:<40 mg/dL: Low HDL-cholesterol (major risk factor for CHD)>= 60 mg/dL: High HDL-cholesterol (negative risk factor for CHD)HDL-cholesterol is affected by a number of factors, e.g. smoking, exercise, hormones, sex and age. Serum or plasma cholesterol measurement (mass/volume)Ordered By: Kvng Ochoa on 09-22-2024 Cholesterol [Mass/Vol] 195 mg/dL <201 [facility] Comment on above: Cholesterol level, D esirable <200 mg/dLBorderline high cholesterol 200-239 mg/dLHigh cholesterol >=240 mg/dLRecommendations of the NCEP Adult Treatment Panel for the following risk-cutoff thresholds for the [place] population. Serum or plasma urea nitroge n measurement (mass/volume)Ordered By: Kvng Ochoa on 09-22-2024 Urea nitrogen [Mass/Vol] 30 mg/dL High 4-19 [facility] Sodium levelOrdered By: Dru Ochoa on 09-22-2024 Sodium [Moles/Vol] 140 mmol/L 133-145 [facility] Triglycerides measurementOrd ered By: Kvng Ochoa on 09-22-2024 Triglyceride [Mass/Vol] 118 mg/dL <[address] [facility] Comment on above: The drugs N-Acetylcy steine and Metamizole may falsely depress this assay. Normal range: <150 mg/dLBorderline High: 150-199 mg/dLHigh: 200-499 mg/dLVery High: >500 mg/dL International normalized rat io (INR) measurement by fingerstickOrdered By: Cesar Cole on 09-17-2024 INR Coag (BldC) [Relative time] 1.5 [facility] Comment on above: Critical Value > 4.0 Whole blood prothrombin time Ordered By: Cesar Cole on 09-17-2024 PT Coag (Bld) [Time] 17.2 s High 11.7-14.9 [facility] KEPPRA (LEVETIRACETAM)on KEPPRA <2.0 Abnormal 10.0-40.0 [facility] Comment on above: Performed By: #### L 503.5510, L3310.0000, L3300.4400 ####[facility] [id number] [place], [place], [id number] Lamotrigine (Lamictal) Level on 09-16-2024 LAMOTRIGINE 1.7 ug/mL Low 2.0-20.0 [facility] Comment on above: Result Comment: Dete ction Limit = 1.0 Performed at: [facility] - [facility] [address] [id number] Pharmaceutical Service Representative: Brandon Wells MD, Phone: [phone] Performed By: #### L 503.5510, L3310.0000, [id number] ####[facility] [address] [place], [place], [id number] Ammoniaon 09-13-2024 Ammonia (P) [Moles/Vol] 28.9 umol/L Normal 11-51 [facility] Comment on above: Performed By: #### L 503.5510, L3310.0000, [id number] ####[facility] [address] [place], [place], [id number] LevetiracetamOrdered By: Royce Juarez on 09-13-2024 levETIRAcetam [Mass/Vol] ug/mL Low 10.0-40.0 [facility] Neurology Visit Reporton Neurology Visit Report [facility] [address] [facility], [address] [place], [place] [address] OFFICE VISIT Date of Service: 09/13/24 MR#: [id number] Acct: [id number] Name: EZRA GONZALEZ Rep #: [id number] : 1935 Provider: Dr. Anant baez MD Age/Sex: 89/F Location: [facility]. Status: Signed HPI [facility] Chief Complaint: Details: Interim History: Erza returns for follow-up visit. She has a [...] had difficulty managing her finances in an molder sweep way. 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 Normal [facility] Serum or plasma lamotrigine measurement (mass/volume)Ordered By: Anant Juarez on 09-13-2024 lamoTRIgine [Mass/Vol] 1.7 ug/mL Low 2.0-20.0 [facility] Comment on above: Detection Limit = 1. 0Performed at: [facility] - [facility] [address] [id number] Director: Brandon Wells MD, Phone: [phone] Venous blood ammonia measure mentOrdered By: Anant Juarez on 09-13-2024 Ammonia (P) [Moles/Vol] 28.9 umol/L 11-51 [facility] Lamotrigine (Lamictal) Level on 09-12-2024 LAMOTRIGINE 1.2 ug/mL Low 2.0-20.0 [facility] Comment on above: Result Comment: Dete ction Limit = 1.0 Performed at: [address] [id number] Pharmaceutical Service Representative: Brandon Wells MD, Phone: [phone] Performed By: #### L 100.0100, L500.2500, L300.3900, L3300.4400 ####[facility] [address] [place], [place], [id number] Urine Cultureon 09-12-2024 [facility]RC Klebsiella pneumonia e sp pneum [place] Count 80,000-100,000 Klebsiella pneumoniae sp pneum: REACTION [...] TMP SMX Islt MELINDA <=20 S Normal [facility] Comment on above: Performed By: #### M 100.2200 ####[facility] [address] [place], [address] Anion gap in Serum or Plasma Ordered By: Matthew Oro on 09-11-2024 Anion gap [Moles/Vol] 12 mmol/L 08-12 [facility] BUN/creatinine ratioOrdered By: Matthew Oro on 09-11-2024 Urea nitrogen/Creatinine [Mass ratio] 30.4 mg/mg [address] [facility] Basic Metabolic Profile (BMP )on 09-11-2024 BUN/CRE 30.[address] Comment on above: Order Comment: Comme nts: NPO at [place] prior to lipid panel Performed By: #### L 500.4100, L100.0500, L500.2500 #### [facility] [address] [place], [address] Calcium [Mass/Vol] 8.8 mg/dL Normal 7.6-11.0 [facility] Comment on above: Order Comment: Comme nts: NPO at [place] prior to lipid panel Performed By: #### L 500.4100, L100.0500, L500.2500 #### [facility] [address] [place], [address] Chloride [Moles/Vol] 105 mmol/L Normal 98-108 [facility] Comment on above: Order Comment: Comme nts: NPO at [place] prior to lipid panel Performed By: #### L 500.4100, L100.0500, L500.2500 #### [facility] [address] [place], [address] CO2 [Moles/Vol] 21.6 mmol/L Normal 21.0-32.0 [facility] Comment on above: Order Comment: Comme nts: NPO at [place] prior to lipid panel Performed By: #### L 500.4100, L100.0500, L500.2500 #### [facility] [address] [place], [address] Creatinine [Mass/Vol] 0.91 mg/dL Normal 0.70-1.20 [facility] Comment on above: Order Comment: Comme nts: NPO at [place] prior to lipid panel Performed By: #### L 500.4100, L100.0500, L500.2500 #### [facility] [address] [place], [address] ECRCL 41.34 ml/min Low 50-250 [facility] Comment on above: Order Comment: Comme nts: NPO at [place] prior to lipid panel Performed By: #### L 500.4100, L100.0500, L500.2500 #### [facility] [address] [place], [address] GAP 12 Normal 5-15 [facility] Comment on above: Order Comment: Comme nts: NPO at [place] prior to lipid panel Performed By: #### L 500.4100, L100.0500, L500.2500 #### [facility] [address] [place], [address] GFR/1.73 sq M.predicted among non-blacks MDRD (S/P/Bld) [Vol rate/Area] 61 mL/min/{1.73_m2} Normal >60 [facility] Comment on above: Order Comment: Comme nts: NPO at [place] prior to lipid panel Result Comment: mL/m in/1.73m2 CKD-EPI Creatinine Equation (2020) Performed By: #### L 500.4100, L100.0500, L500.2500 #### [facility] [address] [place], [address] Glucose [Mass/Vol] 118 mg/dL High 70-99 [facility] Comment on above: Order Comment: Comme nts: NPO at [place] prior to lipid panel Performed By: #### L 500.4100, L100.0500, L500.2500 #### [facility] [address] [place], [address] Potassium [Moles/Vol] 4.4 mmol/L Normal 3.3-5.1 [facility] Comment on above: Order Comment: Comme nts: NPO at [place] prior to lipid panel Performed By: #### L 500.4100, L100.0500, L500.2500 #### [facility] [address] [place], [address] Sodium [Moles/Vol] 139 mmol/L Normal 133-145 [facility] Comment on above: Order Comment: Comme nts: NPO at [place] prior to lipid panel Performed By: #### L 500.4100, L100.0500, L500.2500 #### [facility] [address] [place], [address] Urea nitrogen [Mass/Vol] 28 mg/dL High 4-19 [facility] Comment on above: Order Comment: Comme nts: NPO at [place] prior to lipid panel Performed By: #### L 500.4100, L100.0500, L500.2500 #### [facility] [address] [place], [address] CBC-Complete Blood Cnt No Di ffon 09-11-2024 Erythrocyte distribution width (RBC) [Ratio] 12.8 % Normal 11.6-14.6 [facility] Comment on above: Performed By: #### L 500.4100, L100.0500, L500.2500 #### [facility] [address] [place], [address] Hematocrit (Bld) [Volume fraction] 39.7 % Normal 37-47 [facility] Comment on above: Performed By: #### L 500.4100, L100.0500, L500.2500 #### [facility] [address] [place], [address] Hemoglobin (Bld) [Mass/Vol] 13.1 g/dL Normal 12.0-15.0 [facility] Comment on above: Performed By: #### L 500.4100, L100.0500, L500.2500 #### [facility] [address] [place], [address] MCH (RBC) [Entitic mass] 30.3 pg Normal 27.0-32.0 [facility] Comment on above: Performed By: #### L 500.4100, L100.0500, L500.2500 #### [facility] [address] [place], [address] MCHC (RBC) [Mass/Vol] 33.0 g/dL Normal 32-36 [facility] Comment on above: Performed By: #### L 500.4100, L100.0500, L500.2500 #### [facility] [address] [place], [address] MCV (RBC) [Entitic vol] 91.7 fL Normal 81-[address] [facility] Comment on above: Performed By: #### L 500.4100, L100.0500, L500.2500 #### [facility] [address] [place], [address] Platelet mean volume (Bld) [Entitic vol] 10.7 fL Normal 6.2-12.0 [facility] Comment on above: Performed By: #### L 500.4100, L100.0500, L500.2500 #### [facility] [address] [place], [address] Platelets (Bld) [#/Vol] 271 10*3/uL Normal 150-450 [facility] Comment on above: Performed By: #### L 500.4100, L100.0500, L500.2500 #### [facility] [address] [place], [address] RBC (Bld) [#/Vol] 4.33 10*6/uL Normal 4.2-5.4 [facility] Comment on above: Performed By: #### L 500.4100, L100.0500, L500.2500 #### [facility] [address] [place], [address] RDW SD 42.8 fl Normal 35.1-43.9 [facility] Comment on above: Performed By: #### L 500.4100, L100.0500, L500.2500 #### [facility] [address] [place], [address] WBC (Bld) [#/Vol] 12.2 10*3/uL High 4.4-11.0 [facility] Comment on above: Performed By: #### L 500.4100, L100.0500, L500.2500 #### [facility] [address] [place], [address] Calculated very low density lipoprotein (VLDL) cholesterol measurementOrdered By: Matthew Oro on 09-11-2024 Calculated very low density lipoprotein (VLDL) cholesterol measurement 16 mg/dL 5-40 [facility] Carbon dioxide, total [Moles /volume] in Central venous bloodOrdered By: Matthew Oro on 09-11-2024 CO2 [Moles/Vol] 21.6 mmol/L 21.0-32.0 [facility] Chloride assayOrdered By: Urban Oro on 09-11-2024 Chloride [Moles/Vol] 105 mmol/L 98-108 [facility] Discharge Instructionon 08-29 Discharge Instruction [facility] Medical Records Department [address] [place] [address] Instructions for Home/Discharge Instructions 09/11/24 1214 MR#: [id number] Acct: [id number] Name: EZRA GONZALEZ Rep #: [id number] : 1935 89 From: Matthew Oro DO [...] Pruett; Robinson Mayorga; Aura Thurman; Eric Crowell; Cmaila Mitchell; Glenna Jacobson; Lenin Tamez; Ml Morris; [...] Thurman DO; Ashu Leonard MD Signed Normal [facility] Electroencephalogramon 09-11 Electroencephalogram [facility] Pulmonary Services/Neurology [address] [place] [address] MR#: [id number] Acct: [id number] Name: EZRA GONZALEZ Rep #: [id number] : 1935 89 From: Castillo Jones MD Referring Dr: Status: ADM MARIELOS Location: [place] [address] Date: 09/10/24 Sex: F C EEG Results Procedure Details EEG Procedure Details: Inpatient routine EEG report performed at [facility] Study start time: 1326 on 09/11/24 End [...] MD; Dr. Kvng Ochoa DO Date Dictated: 09/11/24 150 Date Transcribed: 09/11/241501 Manager Gas: [place] Signed Normal [facility] Erythrocyte distribution wid th ratioOrdered By: Matthew Oro on 09-11-2024 Erythrocyte distribution width (RBC) [Ratio] 12.8 % 11.6-14.6 [facility] Erythrocyte distribution wid th standard deviationOrdered By: Matthew Oro on 09-11-2024 Erythrocyte distribution width (RBC) [Ratio] 42.8 fl 35.1-43.9 [facility] Glomerular filtration rate ( GFR) estimation/1.73 sq m using serum, plasma, or whole bOrdered By: Matthew Oro on 09-11-2024 GFR/1.73 sq M.predicted among non-blacks MDRD (S/P/Bld) [Vol rate/Area] 61 mL/min/{1.73_m2} >60 [facility] Comment on above: mL/min/1.73m2 CKD-EP I Creatinine Equation (2020) Hematocrit Auto (Bld) [Volum e fraction]Ordered By: Matthew Oro on 09-11-2024 Hematocrit (Bld) [Volume fraction] 39.7 % 37-47 [facility] Hemoglobin measurementOrdere d By: Matthew Oro on 09-11-2024 Hemoglobin (Bld) [Mass/Vol] 13.1 g/dL 12.0-15.0 [facility] LDL calc ser/plasOrdered By: Matthew Baemanuela on 09-11-2024 Cholesterol in LDL [Mass/Vol] 100 mg/dL [facility] Comment on above: Sgjnexsuxp=453-071 m g/dL & Higher Jrjb=932 mg/dL or greater Lipid Profileon 09-11-2024 CHOL:HDL 3.03 Normal [facility] Comment on above: Order Comment: Comme nts: NPO at [place] prior to lipid panel Performed By: #### L 500.4100, L100.0500, L500.2500 #### [facility] [address] [facility], [address] Cholesterol [Mass/Vol] 172 mg/dL Normal <=200 [facility] Comment on above: Order Comment: Comme nts: NPO at [place] prior to lipid panel Result Comment: Chol esterol level, Desirable <200 mg/dL Borderline high cholesterol 200-239 mg/dL High cholesterol >=240 mg/dL Recommendations of the NCEP Adult Treatment Panel for the following risk-cutoff thresholds for the [place] population. Performed By: #### L 500.4100, L100.0500, L500.2500 #### [facility] [address] [facility], [address] Cholesterol in HDL [Mass/Vol] 57 mg/dL Normal [facility] Comment on above: Order Comment: Comme [...] By: #### L 500.4100, L100.0500, L500.2500 #### [facility] [address] [place], [address] Cholesterol in LDL [Mass/Vol] 100 mg/dL Normal [facility] Comment on above: Order Comment: Comme nts: NPO at [place] prior to lipid panel Result Comment: Bord gmahsg=306-323 mg/dL Higher Mzdg=122 mg/dL or greater Performed By: #### L 500.4100, L100.0500, L500.2500 #### [facility] [address] [place], [address] Cholesterol in VLDL [Mass/Vol] 16 mg/dL Normal 5-40 [facility] Comment on above: Order Comment: Comme nts: NPO at [place] prior to lipid panel Performed By: #### L 500.4100, L100.0500, L500.2500 #### [facility] [address] [place], [address] Triglyceride [Mass/Vol] 78 mg/dL Normal [facility] Comment on above: Order Comment: Comme nts: NPO at [place] prior to lipid panel Result Comment: The drugs N-Acetylcysteine and Metamizole may falsely depress this assay. Normal range: <150 mg/dL Borderline High: 150-199 mg/dL High: 200-499 mg/dL Very High: >500 mg/dL Performed By: #### L 500.4100, L100.0500, L500.2500 #### [facility] [address] [place], [address] MCV (mean corpuscular volume ) determinationOrdered By: Matthew Oro on 09-11-2024 MCV (RBC) [Entitic vol] 91.7 fL 81-99 [facility] Mean corpuscular hemoglobin (MCH) determinationOrdered By: Matthew Oro on 09-11-2024 MCH (RBC) [Entitic mass] 30.3 pg 27.0-32.0 [facility] Mean corpuscular hemoglobin concentration (MCHC) determinationOrdered By: Matthew Oro on 09-11-2024 MCHC (RBC) [Mass/Vol] 33.0 g/dL 32-36 [facility] Mean platelet volume determi nationOrdered By: Matthew Oro on 09-11-2024 Platelet mean volume (Bld) [Entitic vol] 10.7 fL 6.2-12.0 [facility] Platelet countOrdered By: Urban Oro on 09-11-2024 Platelets (Bld) [#/Vol] 271 10*3/uL 150-450 [facility] Potassium measurement (mass/ volume)Ordered By: Matthew Oro on 09-11-2024 Potassium (Unsp spec) [Mass/Vol] 4.4 mmol/L 3.3-5.1 [facility] RBC Auto (Bld) [#/Vol]Ordere d By: Matthew Oro on 09-11-2024 RBC (Bld) [#/Vol] 4.33 10*6/uL 4.2-5.4 [facility] Screening total cholesterol/ high density lipoprotein (HDL) cholesterol ratioOrdered By: Matthew Oro on 09-11-2024 Cholesterol.total/Cholest felipe in HDL [Mass ratio] 3.03 {ratio} [facility] Serum creatinine measurement (mass/volume)Ordered By: Matthew Oro on 09-11-2024 Creatinine [Mass/Vol] 0.91 mg/dL 0.70-1.20 [facility] Serum glucose measurement (m ass/volume)Ordered By: Matthew Oro on 09-11-2024 Glucose [Mass/Vol] 118 mg/dL High 70-99 [facility] Serum or plasma calcium viktoria urement (mass/volume)Ordered By: Matthew Oro on 09-11-2024 Calcium [Mass/Vol] 8.8 mg/dL 7.6-11.0 [facility] Serum or plasma cholesterol in HDL measurement (mass/volume)Ordered By: Matthew Oro on 09-11-2024 Cholesterol in HDL [Mass/Vol] 57 mg/dL >40 [facility] Comment on above: National Cholesterol Education Program (NCEP) guidelines:<40 mg/dL: Low HDL-cholesterol (major risk factor for CHD)>= 60 mg/dL: High HDL-cholesterol (negative risk factor for CHD)HDL-cholesterol is affected by a number of factors, e.g. smoking, exercise, hormones, sex and age. Serum or plasma cholesterol measurement (mass/volume)Ordered By: Matthew Oro on 09-11-2024 Cholesterol [Mass/Vol] 172 mg/dL <201 [facility] Comment on above: Cholesterol level, D esirable <200 mg/dLBorderline high cholesterol 200-239 mg/dLHigh cholesterol >=240 mg/dLRecommendations of the NCEP Adult Treatment Panel for the following risk-cutoff thresholds for the [place] population. Serum or plasma urea nitroge n measurement (mass/volume)Ordered By: Matthew Oro on 09-11-2024 Urea nitrogen [Mass/Vol] 28 mg/dL High 4-19 [facility] Sodium levelOrdered By: All Oro on 09-11-2024 Sodium [Moles/Vol] 139 mmol/L 133-145 [facility] Triglycerides measurementOrd ered By: Matthew Oro on 09-11-2024 Triglyceride [Mass/Vol] 78 mg/dL <[address] [facility] Comment on above: The drugs N-Acetylcy steine and Metamizole may falsely depress this assay. Normal range: <150 mg/dLBorderline High: 150-199 mg/dLHigh: 200-499 mg/dLVery High: >500 mg/dL White blood cell (WBC) count Ordered By: Matthew Oro on 09-11-2024 WBC (Bld) [#/Vol] 12.2 10*3/uL High 4.4-11.0 [facility] Absolute lymphocyte countOrd ered By: Teri Garcia on 09-10-2024 Lymphocytes Auto (Unsp spec) [#/Vol] 1.91 10*3/uL 0.83-4.51 [facility] Absolute neutrophil countOrd ered By: Teri Garcia on 09-10-2024 Neutrophils (Bld) [#/Vol] 8.3 10*3/uL High 2.0-7.7 [facility] Activated partial thrombopla stin time (aPTT) in platelet poor plasma by coagulation aOrdered By: Teri Garcia on 09-10-2024 aPTT Coag (PPP) [Time] 31.8 s 24.1-36.2 [facility] Anion gap in Serum or Plasma Ordered By: Teri Garcia on 09-10-2024 Anion gap [Moles/Vol] 12 mmol/L 5-15 [facility] Automated lymphocyte count a s percentage of total leukocytesOrdered By: Teri Garcia on 09-10-2024 Lymphocytes/100 WBC Auto (Unsp spec) 16.6 % Low 19-41 [facility] BUN/creatinine ratioOrdered By: Teri Garcia on 09-10-2024 Urea nitrogen/Creatinine [Mass ratio] 34.8 mg/mg High 10-20 [facility] Basic Metabolic Profile (BMP )on 09-10-2024 BUN/CRE 34.8 RATIO High - [facility] Comment on above: Performed By: #### L 500.2500, L100.0100, L501.4021, L300.3900, L300.4310 ####[facility] [address] [place], [address] Calcium [Mass/Vol] 8.7 mg/dL Normal 7.6-11.0 [facility] Comment on above: Performed By: #### L 500.2500, L100.0100, L501.4021, L300.3900, L300.4310 ####[facility] [address] [place], [address] Chloride [Moles/Vol] 103 mmol/L Normal 98-108 [facility] Comment on above: Performed By: #### L 500.2500, L100.0100, L501.4021, L300.3900, L300.4310 ####[facility] [address] [place], [address] CO2 [Moles/Vol] 21.8 mmol/L Normal 21.0-32.0 [facility] Comment on above: Performed By: #### L 500.2500, L100.0100, L501.4021, L300.3900, L300.4310 ####[facility] [address] [place], [address] Creatinine [Mass/Vol] 1.05 mg/dL Normal 0.70-1.20 [facility] Comment on above: Performed By: #### L 500.2500, L100.0100, L501.4021, L300.3900, L300.4310 ####[facility] [address] [place], [address] ECRCL 33.63 ml/min Low 50-250 [facility] Comment on above: Performed By: #### L 500.2500, L100.0100, L501.4021, L300.3900, L300.4310 ####[facility] [address] [place], [address] GAP 12 Normal 5-15 [facility] Comment on above: Performed By: #### L 500.2500, L100.0100, L501.4021, L300.3900, L300.4310 ####[facility] [address] [place], [address] GFR/1.73 sq M.predicted among non-blacks MDRD (S/P/Bld) [Vol rate/Area] 51 mL/min/{1.73_m2} Low >60 [facility] Comment on above: Result Comment: mL/m in/1.73m2 CKD-EPI Creatinine Equation (2020) Performed By: #### L 500.2500, L100.0100, L501.4021, L300.3900, L300.4310 ####[facility] [address] [place], [address] Glucose [Mass/Vol] 131 mg/dL High 70-99 [facility] Comment on above: Performed By: #### L 500.2500, L100.0100, L501.4021, L300.3900, L300.4310 ####[facility] [address] [place], [address] Potassium [Moles/Vol] 4.4 mmol/L Normal 3.3-5.1 [facility] Comment on above: Result Comment: Hemo lysis present, Results??could be affected. ?? Performed By: #### L 500.2500, L100.0100, L501.4021, L300.3900, L300.4310 ####[facility] [address] [place], [address] Sodium [Moles/Vol] 137 mmol/L Normal 133-145 [facility] Comment on above: Performed By: #### L 500.2500, L100.0100, L501.4021, L300.3900, L300.4310 ####[facility] [address] [place], [address] Urea nitrogen [Mass/Vol] 37 mg/dL High 4-19 [facility] Comment on above: Performed By: #### L 500.2500, L100.0100, L501.4021, L300.3900, L300.4310 ####[facility] [address] [place], [address] Basophil percentageOrdered B y: Teri Garcia on 09-10-2024 Basophils/100 WBC (Bld) 0.4 % 0-[address] [facility] Bilirubin Test strip Ql (U)O rdered By: Teri Garcia on 09-10-2024 Bilirubin Ql (U) Negative Negative [facility] Brain without Contraston Brain without Contrast [facility] Imaging Services [address] [place] [address] Brain without Contrast MR#: [id number] Acct: [id number] Name: EZRA GONZALEZ Rep #: [id number] : 1935 F 89 From: Matthias Márquez MD PCP: Dr. Kvng Ochoa, DO Status: ADM MARIELOS Study: Brain without Contrast Date of Exam: 09/10/24 Exam# [id number] Ordering Dr: Matthew Oro DO PROCEDURE: BRAIN [...] Atrophy and mild microvascular changes Reading Location: [facility] CC: Dr. Matthew Oro DO; Dr. Kvng Ochoa DO Manager Gas: Signed Normal [facility] CBC W/Diff, Automatedon 08-29 Absolute Lymph 1.91 X10 3/uL Normal 0.83-4.51 [facility] Comment on above: Performed By: #### L 500.2500, L100.0100, L501.4021, L300.3900, L300.4310 ####[facility] [address] [place], [address] Absolute Neut 8.3 X10 3/uL High 2.0-7.7 [facility] Comment on above: Performed By: #### L 500.2500, L100.0100, L501.4021, L300.3900, L300.4310 ####[facility] [address] [place], [address] Basophils/100 WBC (Bld) 0.4 % Normal 0-[address] [facility] Comment on above: Performed By: #### L 500.2500, L100.0100, L501.4021, L300.3900, L300.4310 ####[facility] [address] [place], [address] Eosinophils/100 WBC (Bld) 1.2 % Normal 0-5 [facility] Comment on above: Performed By: #### L 500.2500, L100.0100, L501.4021, L300.3900, L300.4310 ####[facility] [address] [place], [address] Erythrocyte distribution width (RBC) [Ratio] 13.2 % Normal 11.6-14.6 [facility] Comment on above: Performed By: #### L 500.2500, L100.0100, L501.4021, L300.3900, L300.4310 ####[facility] [address] [place], [address] Hematocrit (Bld) [Volume fraction] 41.7 % Normal 37-47 [facility] Comment on above: Performed By: #### L 500.2500, L100.0100, L501.4021, L300.3900, L300.4310 ####[facility] [address] [place], [address] Hemoglobin (Bld) [Mass/Vol] 13.6 g/dL Normal 12.0-15.0 [facility] Comment on above: Performed By: #### L 500.2500, L100.0100, L501.4021, L300.3900, L300.4310 ####[facility] [address] [place], [address] IG% 0.400 Normal 0.0-0.9 [facility] Comment on above: Result Comment: IG% - Immature Granulocytes (promyelocytes, myelocytes and metamyelocytes) > 1% indicates that a LEFT SHIFT is Present. Performed By: #### L 500.2500, L100.0100, L501.4021, L300.3900, L300.4310 ####[facility] [address] [place], [address] Lymphocytes/100 WBC (Bld) 16.6 % Low 19-41 [facility] Comment on above: Performed By: #### L 500.2500, L100.0100, L501.4021, L300.3900, L300.4310 ####[facility] [address] [place], [address] MCH (RBC) [Entitic mass] 30.6 pg Normal 27.0-32.0 [facility] Comment on above: Performed By: #### L 500.2500, L100.0100, L501.4021, L300.3900, L300.4310 ####[facility] [address] [place], [address] MCHC (RBC) [Mass/Vol] 32.6 g/dL Normal 32-36 [facility] Comment on above: Performed By: #### L 500.2500, L100.0100, L501.4021, L300.3900, L300.4310 ####[facility] [address] [place], [address] MCV (RBC) [Entitic vol] 93.9 fL Normal 81-99 [facility] Comment on above: Performed By: #### L 500.2500, L100.0100, L501.4021, L300.3900, L300.4310 ####[facility] [address] [place], [address] Monocytes/100 WBC (Bld) 9.1 % Normal 0-10 [facility] Comment on above: Performed By: #### L 500.2500, L100.0100, L501.4021, L300.3900, L300.4310 ####[facility] [address] [place], [address] Neutrophils/100 WBC (Bld) 72.3 % High 47-70 [facility] Comment on above: Performed By: #### L 500.2500, L100.0100, L501.4021, L300.3900, L300.4310 ####[facility] [address] [place], [address] Nucleated RBC (Bld) [#/Vol] 0 10*3/uL Normal 0-5 [facility] Comment on above: Performed By: #### L 500.2500, L100.0100, L501.4021, L300.3900, L300.4310 ####[facility] [address] [place], [address] Platelet mean volume (Bld) [Entitic vol] 10.4 fL Normal 6.2-12.0 [facility] Comment on above: Performed By: #### L 500.2500, L100.0100, L501.4021, L300.3900, L300.4310 ####[facility] [address] [place], [address] Platelets (Bld) [#/Vol] 269 10*3/uL Normal 150-450 [facility] Comment on above: Performed By: #### L 500.2500, L100.0100, L501.4021, L300.3900, L300.4310 ####[facility] [address] [place], [address] RBC (Bld) [#/Vol] 4.44 10*6/uL Normal 4.2-5.4 [facility] Comment on above: Performed By: #### L 500.2500, L100.0100, L501.4021, L300.3900, L300.4310 ####[facility] [address] [place], [address] RDW SD 45.4 fl High 35.1-43.9 [facility] Comment on above: Performed By: #### L 500.2500, L100.0100, L501.4021, L300.3900, L300.4310 ####[facility] [address] [place], [address] WBC (Bld) [#/Vol] 11.5 10*3/uL High 4.4-11.0 [facility] Comment on above: Performed By: #### L 500.2500, L100.0100, L501.4021, L300.3900, L300.4310 ####[facility] [address] [place], [address] Carbon dioxide, total [Moles /volume] in Central venous bloodOrdered By: Teri Garcia on 09-10-2024 CO2 [Moles/Vol] 21.8 mmol/L 21.0-32.0 [facility] Chloride assayOrdered By: Antonio Garcia on 09-10-2024 Chloride [Moles/Vol] 103 mmol/L 98-108 [facility] Emergency Department Summary on 09-10-2024 Emergency Department Summary [facility] Medical Records Department [address] [place] [address] Emergency Department Summary 09/10/24 MR#: [id number] Acct: [id number] Name: EZRA GONZALEZ Rep #: [id number] : 1935 89 From: Teri Garcia DO PCP: Dr. Kvng Ochoa, DO Status:[facility] ER Location: ED HPI History of Present [...] speech changes. I spoke to her son Wilfrdeo (her eldest son) phone number [phone]. He states that she follows with Dr. 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 Normal [facility] Eosinophil percentageOrdered By: Teri Garcia on 09-10-2024 Eosinophils/100 WBC (Bld) 1.2 % 0-5 [facility] Erythrocyte distribution wid th ratioOrdered By: Teri Garcia on 09-10-2024 Erythrocyte distribution width (RBC) [Ratio] 13.2 % 11.6-14.6 [facility] Erythrocyte distribution wid th standard deviationOrdered By: Teri Garcia on 09-10-2024 Erythrocyte distribution width (RBC) [Ratio] 45.4 fl High 35.1-43.9 [facility] Glomerular filtration rate ( GFR) estimation/1.73 sq m using serum, plasma, or whole bOrdered By: Teri Garcia on 09-10-2024 GFR/1.73 sq M.predicted among non-blacks MDRD (S/P/Bld) [Vol rate/Area] 51 mL/min/{1.73_m2} Low >60 [facility] Comment on above: mL/min/1.73m2 CKD-EP I Creatinine Equation (2020) H AND P Exam - [facility] 09-10-2024 H&P Exam - Hospitalist [facility] Medical Records Department [address] [place] [address] H P Exam - Hospitalist 09/10/24 1603 MR#: [id number] Acct: [id number] Name: EZRA GONZALEZ Rep #: [id number] : 1935 89 From: Matthew Oro DO PCP: Dr. Kvng Ochoa DO Status:ADM MARIELOS Location: [place] [address] HPI - General General Date of Admission: 09/10/24 Date of Service: 09/10/24 Chief Complaint: Dysarthria HPI Narrative EZRA GONZALEZ, is a 89 F who presented to [facility] ED on 09/10/2024 with dysarthria. Patient lives at [facility] living at [place]. Has history of seizures and is on [...] acute concerns at this time. 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 Normal [facility] Hematocrit Auto (Bld) [Volum e fraction]Ordered By: Teri Garcia on 09-10-2024 Hematocrit (Bld) [Volume fraction] 41.7 % 37-47 [facility] Hemoglobin measurementOrdere d By: Teri Garcia on 09-10-2024 Hemoglobin (Bld) [Mass/Vol] 13.6 g/dL 12.0-15.0 [facility] Immature granulocytes/100 WB C Auto (Bld)Ordered By: Teri Garcia on 09-10-2024 Immature granulocytes/100 WBC (Bld) 0.400 % 0.0-0.9 [facility] Comment on above: IG% - Immature Granu locytes (promyelocytes, myelocytes and metamyelocytes) > 1% indicates that a LEFT SHIFT is Present. International normalized rat io (INR) calculationOrdered By: Teri Garcia on 09-10-2024 INR Coag (Bld) [Relative time] 2.4 {INR} [facility] Ketones Test strip Ql (U)Ord ered By: Teri Garcia on 09-10-2024 Ketones Ql (U) Negative Negative [facility] L499.0042on 09-10-2024 Trop T High Sen 17 ng/L High <=14 [facility] Comment on above: Performed By: #### L 499.0042 #### [facility] Laboratory [address] [place], [address] L499.0043on 09-10-2024 Trop T High Sen 15 ng/L High <=14 [facility] Comment on above: Performed By: #### L 499.0043 #### [facility] Laboratory [address] [place], [address] L501.4021on 09-10-2024 Trop T High Sen 18 ng/L High <=14 [facility] Comment on above: Performed By: #### L 500.2500, L100.0100, L501.4021, L300.3900, L300.4310 ####[facility] [address] [place], [address] MCV (mean corpuscular volume ) determinationOrdered By: Teri Garcia on 09-10-2024 MCV (RBC) [Entitic vol] 93.9 fL 81-[address] [facility] Magnetic resonance imaging r eportOrdered By: Matthias Márquez on 09-10-2024 Study report [facility] Imaging Services [address] [place], [place] [address] Brain without Contrast MR#: [id number] Acct: [id number] Name: EZRA GONZALEZ Rep #: [id number] : 1935 F 89 From: Bill Márquez MD PCP: Dr. Kvng Ochoa, DO Status: ADM MARIELOS Study:Brain without Contrast Date of Exam: 09/10/24 Exam# [id number] Ordering Dr: Matthew Patel DO PROCEDURE: BRAIN [...] Atrophy and mild microvascular changes [facility] CC: Dr. Matthew Oro, ; Dr. Kvng Ochoa DO ~ Manager Gas: Signed [facility] Mean corpuscular hemoglobin (MCH) determinationOrdered By: Teri Garcia on 09-10-2024 MCH (RBC) [Entitic mass] 30.6 pg 27.0-32.0 [facility] Mean corpuscular hemoglobin concentration (MCHC) determinationOrdered By: Teri Garcia on 09-10-2024 MCHC (RBC) [Mass/Vol] 32.6 g/dL 32-36 [facility] Mean platelet volume determi nationOrdered By: Teri Garcia on 09-10-2024 Platelet mean volume (Bld) [Entitic vol] 10.4 fL 6.2-12.0 [facility] Microscopic analysis of urin e for red blood cells (RBC)Ordered By: Teri Garcia on 09-10-2024 Microscopic analysis of urine for red blood cells (RBC) 0 SEEN /hpf 0-5 [facility] Monocyte percentageOrdered B y: Teri Garcia on 09-10-2024 Monocytes/100 WBC (Bld) 9.1 % 0-[address] [facility] Mucus LM Ql (Urine sed)Order ed By: Teri Garcia on 09-10-2024 Mucus Ql (Urine sed) 0 SEEN /hpf [facility] Neutrophil percentageOrdered By: Teri Garcia on 06-13-2025 Neutrophils/100 WBC (Bld) 72.3 % High 47-70 [facility] Nitrite Test strip Ql (U)Ord ered By: Teri Garcia on 09-10-2024 Nitrite Ql (U) Negative Negative [facility] Nucleated red blood cell per centageOrdered By: Teri Garcia on 09-10-2024 Nucleated RBC/100 WBC (Bld) [Ratio] 0 % 0-5 [facility] Partial Thromboplast Timeon 09-10-2024 aPTT Coag (Bld) [Time] 31.8 s Normal 24.1-36.2 [facility] Comment on above: Performed By: #### L 500.2500, L100.0100, L501.4021, L300.3900, L300.4310 ####[facility] [address] [place], [place], [address] Platelet countOrdered By: Antonio Garcia on 09-10-2024 Platelets (Bld) [#/Vol] 269 10*3/uL 150-450 [facility] Potassium measurement (mass/ volume)Ordered By: Teri Garcia on 09-10-2024 Potassium (Unsp spec) [Mass/Vol] 4.4 mmol/L 3.3-5.1 [facility] Comment on above: Hemolysis present, R esults could be affected. Protein Test strip Ql (U)Ord ered By: Teri Garcia on 09-10-2024 Protein Ql (U) 30 mg/dl High Negative [facility] Prothrombin Time w/INRon INR Coag (PPP) [Relative time] 2.4 {INR} Normal [facility] Comment on above: Performed By: #### L 500.2500, L100.0100, L501.4021, L300.3900, L300.4310 ####[facility] [address], [address] PT Coag (PPP) [Time] 26.4 s High 11.7-14.9 [facility] Comment on above: Performed By: #### L 500.2500, L100.0100, L501.4021, L300.3900, L300.4310 ####[facility] [address] [place], [address] Prothrombin timeOrdered By: Teri Garcia on 09-10-2024 PT Coag (PPP) [Time] 26.4 s High 11.7-14.9 [facility] RBC Auto (Bld) [#/Vol]Ordere d By: Teri Garcia on 09-10-2024 RBC (Bld) [#/Vol] 4.44 10*6/uL 4.2-5.4 [facility] STROKE Brain/Head without Co nton 09-10-2024 STROKE Brain/Head without Cont [facility] Imaging Services [address] [place], [place] [address] STROKE Brain/Head without Cont MR#: [id number] Acct: [id number] Name: EZRA GONZALEZ Rep #: [id number] : 1935 F 89 From: Mio nayak MD PCP: Dr. Kvng Ochoa, DO Status: REG ER Study: STROKE Brain/Head without Cont Date of Exam: 0 09/10/24 Exam# [id number] Ordering Dr: Teri Garcia DO PROCEDURE: STROKE [...] 2:05 pm with readback verification. Reading Location: [id number] CC: Dr. Teri Garcia DO; Dr. Kvng Ochoa DO Manager Gas: Signed Normal [facility] STROKE CTA Head AND Neck W/C onon 09-10-2024 STROKE CTA Head AND Neck W/Con [facility] Imaging Services [address] [place], [place] [address] STROKE CTA Head AND Neck W/Con MR#: [id number] Acct: [id number] Name: EZRA GONZALEZ Rep #: [id number] : 1935 F 89 From: Mio nayak MD PCP: Dr. Kvng Ochoa DO Status: REG ER Study: STROKE CTA Head AND Neck W/Con Date of Exam: 0 09/10/24 Exam# [id number] Ordering Dr: Teri Garcia DO PROCEDURE: STROKE [...] RIGHT Vertebral: Unremarkable. LEFT Vertebral: Unremarkable. Anatomy: Ramona of Monique anatomy is normal. Aneurysm or [...] 3:01 pm with readback verification. Reading Location: [id number] CC: Dr. Teri Garcia DO; Dr. Kvng Ochoa DO Manager Gas: Signed Normal [facility] Serum creatinine measurement (mass/volume)Ordered By: Teri Garcia on 09-10-2024 Creatinine [Mass/Vol] 1.05 mg/dL 0.70-1.20 [facility] Serum glucose measurement (m ass/volume)Ordered By: Teri Garcia on 09-10-2024 Glucose [Mass/Vol] 131 mg/dL High 70-99 [facility] Serum or plasma calcium viktoria urement (mass/volume)Ordered By: Teri Garcia on 09-10-2024 Calcium [Mass/Vol] 8.7 mg/dL 7.6-11.0 [facility] Serum or plasma urea nitroge n measurement (mass/volume)Ordered By: Teri Garcia on 09-10-2024 Urea nitrogen [Mass/Vol] 37 mg/dL High 4-19 [facility] Sodium levelOrdered By: Ollie Garcia on 09-10-2024 Sodium [Moles/Vol] 137 mmol/L 133-145 [facility] Squamous epithelial cells de tection in urine sediment by light microscopyOrdered By: Teri Jose on 09-10-2024 Epithelial cells.squamous LM Ql (Urine sed) 0-5 SEEN /hpf 5-10 [facility] Troponin T.cardiac [Mass/vol ume] in Serum or Plasma by High sensitivity methodOrdered By: Teri Garcia on 09-10-2024 Troponin T.cardiac High sensitivity method [Mass/Vol] 15 ng/L High <14 [facility] Troponin T.cardiac High sensitivity method [Mass/Vol] 17 ng/L High <14 [facility] Troponin T.cardiac High sensitivity method [Mass/Vol] 18 ng/L High <14 [facility] Urinalysis, Completeon 09-10 BACTERIA RARE Normal None Seen [facility] Comment on above: Order Comment: RANDY CTOR TO SPECIFY Performed By: #### L 400.0001 ####[facility] [address] [facility] [address] EPI,SQUAMOUS 0-5 SEEN Normal 5-10 [facility] Comment on above: Order Comment: RANDY CTOR TO SPECIFY Performed By: #### L 400.0001 ####[facility] [address] [facility] [address] WBC 10-25 SEEN Normal 0-5 [facility] Comment on above: Order Comment: RANDY CTOR TO SPECIFY Performed By: #### L 400.0001 ####[facility] [address] [place], [address] Mucus Ql (Urine sed) 0 SEEN Normal [facility] Comment on above: Order Comment: RANDY CTOR TO SPECIFY Performed By: #### L 400.0001 ####[facility] [address] [place], [address] RBC 0 SEEN Normal 0-5 [facility] Comment on above: Order Comment: RANDY CTOR TO SPECIFY Performed By: #### L 400.0001 ####[facility] [address] [place], [address] Urine clarityOrdered By: Lashaun Garcia on 09-10-2024 Clarity (U) Clear Clear [facility] Urine color determinationOrd ered By: Teri Garcia on 09-10-2024 Color (U) Straw Yellow [facility] Urine cultureOrdered By: Lashaun Garcia on 09-10-2024 Bacteria identified Cx Nom (U) Klebsiella pneumoniae sp pneum Abnormal [facility] Urine glucose detectionOrder ed By: Teri Garcia on 09-10-2024 Glucose Ql (U) Normal mg/dl Normal [facility] Urine leukocyte esterase det ection by dipstickOrdered By: Teri Garcia on 09-10-2024 Leukocyte esterase Test strip Ql (U) 500 /ul High Negative [facility] Urine pHOrdered By: Teri romero on 09-10-2024 pH (U) 5.0 [pH] 5.0 - 8.0 [facility] Urine sediment bacteria coun t by microscopy (number/high power field)Ordered By: Teri Garcia on 09-10-2024 Bacteria LM.HPF (Urine sed) [#/Area] RARE /hpf None Seen [facility] Urine specific gravity measu rementOrdered By: Teri Garcia on 09-10-2024 Specific gravity (U) [Rel density] 1.010 1.002-1.030 [facility] Urine urobilinogen measureme ntOrdered By: Teri Garcia on 09-10-2024 Urobilinogen Ql (U) Normal mg/dl Normal [facility] White blood cell (WBC) count Ordered By: Teri Garcia on 09-10-2024 WBC (Bld) [#/Vol] 11.5 10*3/uL High 4.4-11.0 [facility] White blood cell countOrdere d By: Teri Garcia on 09-10-2024 White blood cell count 10-25 SEEN /hpf 0-5 [facility] Absolute lymphocyte countOrd ered By: Anoop Blackmon on 09-08-2024 Lymphocytes Auto (Unsp spec) [#/Vol] 2.21 10*3/uL 0.83-4.51 [facility] Absolute neutrophil countOrd ered By: Anooppierce Blackmon on 09-08-2024 Neutrophils (Bld) [#/Vol] 10.3 10*3/uL High 2.0-7.7 [facility] Anion gap in Serum or Plasma Ordered By: Anooppierce Blackmon on 09-08-2024 Anion gap [Moles/Vol] 11 mmol/L 5-15 [facility] Automated lymphocyte count a s percentage of total leukocytesOrdered By: Anoop Blackmon on 09-08-2024 Lymphocytes/100 WBC Auto (Unsp spec) 16.2 % Low 19-41 [facility] BUN/creatinine ratioOrdered By: Anooppierce Blackmon on 09-08-2024 Urea nitrogen/Creatinine [Mass ratio] 35.2 mg/mg High 10-20 [facility] Basic Metabolic Profile (BMP )on 09-08-2024 BUN/CRE 35.2 RATIO High - [facility] Comment on above: Performed By: #### L 100.0100, L500.2500, L300.3900, L3300.4400 ####[facility] [address] [place], [address] Calcium [Mass/Vol] 8.9 mg/dL Normal 7.6-11.0 [facility] Comment on above: Performed By: #### L 100.0100, L500.2500, L300.3900, L3300.4400 ####[facility] [address] [place], [address] Chloride [Moles/Vol] 105 mmol/L Normal 98-108 [facility] Comment on above: Performed By: #### L 100.0100, L500.2500, L300.3900, L3300.4400 ####[facility] [address] [place], [address] CO2 [Moles/Vol] 22.4 mmol/L Normal 21.0-32.0 [facility] Comment on above: Performed By: #### L 100.0100, L500.2500, L300.3900, L3300.4400 ####[facility] [address] [place], [address] Creatinine [Mass/Vol] 1.00 mg/dL Normal 0.70-1.20 [facility] Comment on above: Performed By: #### L 100.0100, L500.2500, L300.3900, L3300.4400 ####[facility] [address] [place], [address] ECRCL 39.57 ml/min Low 50-250 [facility] Comment on above: Performed By: #### L 100.0100, L500.2500, L300.3900, L3300.4400 ####[facility] [address] [place], [address] GAP 11 Normal 5-15 [facility] Comment on above: Performed By: #### L 100.0100, L500.2500, L300.3900, L3300.4400 ####[facility] [address] [place], [address] GFR/1.73 sq M.predicted among non-blacks MDRD (S/P/Bld) [Vol rate/Area] 54 mL/min/{1.73_m2} Low >60 [facility] Comment on above: Result Comment: mL/m in/1.73m2 CKD-EPI Creatinine Equation (2020) Performed By: #### L 100.0100, L500.2500, L300.3900, L3300.4400 ####[facility] [address] [place], [address] Glucose [Mass/Vol] 149 mg/dL High 70-99 [facility] Comment on above: Performed By: #### L 100.0100, L500.2500, L300.3900, L3300.4400 ####[facility] [address] [place], [address] Potassium [Moles/Vol] 4.7 mmol/L Normal 3.3-5.1 [facility] Comment on above: Performed By: #### L 100.0100, L500.2500, L300.3900, L3300.4400 ####[facility] [address] [place], [address] Sodium [Moles/Vol] 138 mmol/L Normal 133-145 [facility] Comment on above: Performed By: #### L 100.0100, L500.2500, L300.3900, L3300.4400 ####[facility] [address] [place], [address] Urea nitrogen [Mass/Vol] 35 mg/dL High 4-19 [facility] Comment on above: Performed By: #### L 100.0100, L500.2500, L300.3900, L3300.4400 ####[facility] [address] [place], [address] Basophil percentageOrdered B y: Anoop Blackmon on 09-08-2024 Basophils/100 WBC (Bld) 0.2 % 0-[address] [facility] CBC W/Diff, Automatedon 08-29 Absolute Lymph 2.21 X10 3/uL Normal 0.83-4.51 [facility] Comment on above: Performed By: #### L 100.0100, L500.2500, L300.3900, L3300.4400 #### [facility] [address] [place], [address] Absolute Neut 10.3 X10 3/uL High 2.0-7.7 [facility] Comment on above: Performed By: #### L 100.0100, L500.2500, L300.3900, L3300.4400 #### [facility] [address] [place], [address] Basophils/100 WBC (Bld) 0.2 % Normal 0-[address] [facility] Comment on above: Performed By: #### L 100.0100, L500.2500, L300.3900, L3300.4400 #### [facility] [address] [place], [address] Eosinophils/100 WBC (Bld) 0.7 % Normal 0-5 [facility] Comment on above: Performed By: #### L 100.0100, L500.2500, L300.3900, L3300.4400 #### [facility] [address] [place], [address] Erythrocyte distribution width (RBC) [Ratio] 13.2 % Normal 11.6-14.6 [facility] Comment on above: Performed By: #### L 100.0100, L500.2500, L300.3900, L3300.4400 #### [facility] [address] [place], [address] Hematocrit (Bld) [Volume fraction] 41.4 % Normal 37-47 [facility] Comment on above: Performed By: #### L 100.0100, L500.2500, L300.3900, L3300.4400 #### [facility] [address] [place], [address] Hemoglobin (Bld) [Mass/Vol] 13.8 g/dL Normal 12.0-15.0 [facility] Comment on above: Performed By: #### L 100.0100, L500.2500, L300.3900, L3300.4400 #### [facility] [address] [place], [address] IG% 0.400 Normal 0.0-0.9 [facility] Comment on above: Result Comment: IG% - Immature Granulocytes (promyelocytes, myelocytes and metamyelocytes) > 1% indicates that a LEFT SHIFT is Present. Performed By: #### L 100.0100, L500.2500, L300.3900, L3300.4400 #### [facility] [address] [place], [address] Lymphocytes/100 WBC (Bld) 16.2 % Low 19-41 [facility] Comment on above: Performed By: #### L 100.0100, L500.2500, L300.3900, L3300.4400 #### [facility] [address] [place], [address] MCH (RBC) [Entitic mass] 31.4 pg Normal 27.0-32.0 [facility] Comment on above: Performed By: #### L 100.0100, L500.2500, L300.3900, L3300.4400 #### [facility] [address] [place], [address] MCHC (RBC) [Mass/Vol] 33.3 g/dL Normal 32-36 [facility] Comment on above: Performed By: #### L 100.0100, L500.2500, L300.3900, L3300.4400 #### [facility] [address] [place], [address] MCV (RBC) [Entitic vol] 94.1 fL Normal 81-[address] [facility] Comment on above: Performed By: #### L 100.0100, L500.2500, L300.3900, L3300.4400 #### [facility] [address] [place], [address] Monocytes/100 WBC (Bld) 6.6 % Normal 0-[address] [facility] Comment on above: Performed By: #### L 100.0100, L500.2500, L300.3900, L3300.4400 #### [facility] [address] [place], [address] Neutrophils/100 WBC (Bld) 75.9 % High 47-70 [facility] Comment on above: Performed By: #### L 100.0100, L500.2500, L300.3900, L3300.4400 #### [facility] [address] [place], [address] Nucleated RBC (Bld) [#/Vol] 0 10*3/uL Normal 0-5 [facility] Comment on above: Performed By: #### L 100.0100, L500.2500, L300.3900, L3300.4400 #### [facility] [address] [place], [address] Platelet mean volume (Bld) [Entitic vol] 10.8 fL Normal 6.2-12.0 [facility] Comment on above: Performed By: #### L 100.0100, L500.2500, L300.3900, L3300.4400 #### [facility] [address] [place], [address] Platelets (Bld) [#/Vol] 326 10*3/uL Normal 150-450 [facility] Comment on above: Performed By: #### L 100.0100, L500.2500, L300.3900, L3300.4400 #### [facility] [address] [place], [address] RBC (Bld) [#/Vol] 4.40 10*6/uL Normal 4.2-5.4 [facility] Comment on above: Performed By: #### L 100.0100, L500.2500, L300.3900, L3300.4400 #### [facility] [address] [place], [address] RDW SD 45.2 fl High 35.1-43.9 [facility] Comment on above: Performed By: #### L 100.0100, L500.2500, L300.3900, L3300.4400 #### [facility] [address] [place], [address] WBC (Bld) [#/Vol] 13.6 10*3/uL High 4.4-11.0 [facility] Comment on above: Performed By: #### L 100.0100, L500.2500, L300.3900, L3300.4400 #### [facility] [address] [place], [address] Carbon dioxide, total [Moles /volume] in Central venous bloodOrdered By: nAoop Blackmon on 09-08-2024 CO2 [Moles/Vol] 22.4 mmol/L 21.0-32.0 [facility] Chloride assayOrdered By: Monserrat Blackmon on 09-08-2024 Chloride [Moles/Vol] 105 mmol/L 98-108 [facility] Emergency Department Summary on 09-08-2024 Emergency Department Summary [facility] Medical Records Department [address] [place] [address] Emergency Department Summary 09/08/24 MR#: [id number] Acct: [id number] Name: EZRA GONZALEZ Rep #: [id number] : 1935 89 From: Anoop Blackmon MD 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 Normal [facility] Eosinophil percentageOrdered By: Anoop Blackmon on 09-08-2024 Eosinophils/100 WBC (Bld) 0.7 % 0-5 [facility] Erythrocyte distribution wid th ratioOrdered By: Anoop Blackmon on 09-08-2024 Erythrocyte distribution width (RBC) [Ratio] 13.2 % 11.6-14.6 [facility] Erythrocyte distribution wid th standard deviationOrdered By: Anoop Blackmon on 09-08-2024 Erythrocyte distribution width (RBC) [Ratio] 45.2 fl High 35.1-43.9 [facility] Glomerular filtration rate ( GFR) estimation/1.73 sq m using serum, plasma, or whole bOrdered By: Anoop Blackmon on 09-08-2024 GFR/1.73 sq M.predicted among non-blacks MDRD (S/P/Bld) [Vol rate/Area] 54 mL/min/{1.73_m2} Low >60 [facility] Comment on above: mL/min/1.73m2 CKD-EP I Creatinine Equation (2020) Hematocrit Auto (Bld) [Volum e fraction]Ordered By: Anooppierce Blackmon on 09-08-2024 Hematocrit (Bld) [Volume fraction] 41.4 % 37-47 [facility] Hemoglobin measurementOrdere d By: Anooppierce Blackmon on 09-08-2024 Hemoglobin (Bld) [Mass/Vol] 13.8 g/dL 12.0-15.0 [facility] Immature granulocytes/100 WB C Auto (Bld)Ordered By: Anooppierce Blackmon on 09-08-2024 Immature granulocytes/100 WBC (Bld) 0.400 % 0.0-0.9 [facility] Comment on above: IG% - Immature Granu locytes (promyelocytes, myelocytes and metamyelocytes) > 1% indicates that a LEFT SHIFT is Present. International normalized rat io (INR) calculationOrdered By: Anoop Blackmon on 09-08-2024 INR Coag (Bld) [Relative time] 2.9 {INR} [facility] MCV (mean corpuscular volume ) determinationOrdered By: Anoop Blackmon on 09-08-2024 MCV (RBC) [Entitic vol] 94.1 fL 81-[address] [facility] Mean corpuscular hemoglobin (MCH) determinationOrdered By: Anooppierce Blackmon on 09-08-2024 MCH (RBC) [Entitic mass] 31.4 pg 27.0-32.0 [facility] Mean corpuscular hemoglobin concentration (MCHC) determinationOrdered By: Anooppierce Blackmon on 09-08-2024 MCHC (RBC) [Mass/Vol] 33.3 g/dL 32-36 [facility] Mean platelet volume determi nationOrdered By: Anoop Blackmon on 09-08-2024 Platelet mean volume (Bld) [Entitic vol] 10.8 fL 6.2-12.0 [facility] Monocyte percentageOrdered B y: Anoop Blackmon on 09-08-2024 Monocytes/100 WBC (Bld) 6.6 % 0-[address] [facility] Neutrophil percentageOrdered By: Anooppierce Blackmon on 09-08-2024 Neutrophils/100 WBC (Bld) 75.9 % High 47-70 [facility] Nucleated red blood cell per centageOrdered By: Anooppierce Blackmon on 09-08-2024 Nucleated RBC/100 WBC (Bld) [Ratio] 0 % 0-5 [facility] Platelet countOrdered By: Monserrat Blackmon on 09-08-2024 Platelets (Bld) [#/Vol] 326 10*3/uL 150-450 [facility] Potassium measurement (mass/ volume)Ordered By: Anoop Blackmon on 09-08-2024 Potassium (Unsp spec) [Mass/Vol] 4.7 mmol/L 3.3-5.1 [facility] Prothrombin Time w/INRon INR Coag (PPP) [Relative time] 2.9 {INR} Normal [facility] Comment on above: Performed By: #### L 100.0100, L500.2500, L300.3900, L3300.4400 ####[facility] [address] [place], [place], [phone] PT Coag (PPP) [Time] 30.7 s High 11.7-14.9 [facility] Comment on above: Performed By: #### L 100.0100, L500.2500, L300.3900, L3300.4400 ####[facility] [address] [place], [address] Prothrombin timeOrdered By: Anoop Blackmon on 09-08-2024 PT Coag (PPP) [Time] 30.7 s High 11.7-14.9 [facility] RBC Auto (Bld) [#/Vol]Ordere d By: Anoop Blackmon on 09-08-2024 RBC (Bld) [#/Vol] 4.40 10*6/uL 4.2-5.4 [facility] Serum creatinine measurement (mass/volume)Ordered By: Anoop Blackmon on 09-08-2024 Creatinine [Mass/Vol] 1.00 mg/dL 0.70-1.20 [facility] Serum glucose measurement (m ass/volume)Ordered By: Anoop Blackmon on 09-08-2024 Glucose [Mass/Vol] 149 mg/dL High 70-99 [facility] Serum or plasma calcium viktoria urement (mass/volume)Ordered By: Anoop Blackmon on 09-08-2024 Calcium [Mass/Vol] 8.9 mg/dL 7.6-11.0 [facility] Serum or plasma lamotrigine measurement (mass/volume)Ordered By: Anoop Blackmon on 09-08-2024 lamoTRIgine [Mass/Vol] 1.2 ug/mL Low 2.0-20.0 [facility] Comment on above: Detection Limit = 1. 0Performed at: [facility] [id number] Director: Brandon Wells MD, Phone: [phone] Serum or plasma urea nitroge n measurement (mass/volume)Ordered By: Anoop Blackmon on 09-08-2024 Urea nitrogen [Mass/Vol] 35 mg/dL High 4-19 [facility] Sodium levelOrdered By: Anooppierce Blackmon on 09-08-2024 Sodium [Moles/Vol] 138 mmol/L 133-145 [facility] White blood cell (WBC) count Ordered By: Anoop Blackmon on 09-08-2024 WBC (Bld) [#/Vol] 13.6 10*3/uL High 4.4-11.0 [facility] International normalized rat io (INR) calculationOrdered By: Cesar Cole on 08-18-2024 INR Coag (Bld) [Relative time] 2.6 {INR} [facility] Prothrombin timeOrdered By: Cesar Cole on 08-18-2024 PT Coag (PPP) [Time] 28.1 s High 11.7-14.9 [facility] International normalized rat io (INR) calculationOrdered By: Cesar Cole on 07-19-2024 INR Coag (Bld) [Relative time] 2.2 {INR} [facility] Prothrombin timeOrdered By: Cesar Cole on 07-19-2024 PT Coag (PPP) [Time] 25.3 s High 11.7-14.9 [facility] Cardiology Visit Reporton Cardiology Visit Report [facility] [address] [place] [address] OFFICE VISIT Date of Service: 07/01/24 MR#: [id number] Acct: [id number] Name: EZRA GONZALEZ Rep #: [id number] : 1935 Provider: Dr. Cesar Cole MD [...] atrial fibrillation. She is a reside at [facility]. 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 Normal [facility] International normalized rat io (INR) calculationOrdered By: Kvng Ochoa on 06-16-2024 INR Coag (Bld) [Relative time] 2.4 {INR} [facility] Prothrombin timeOrdered By: Kvng Ochoa on 06-16-2024 PT Coag (PPP) [Time] 26.6 s High 11.7-14.9 [facility] Absolute lymphocyte countOrd ered By: Kvng Ochoa on 06-09-2024 Lymphocytes Auto (Unsp spec) [#/Vol] 2.06 10*3/uL 0.83-4.51 [facility] Absolute neutrophil countOrd ered By: Kvng Ochoa on 06-09-2024 Neutrophils (Bld) [#/Vol] 5.6 10*3/uL 2.0-7.7 [facility] Anion gap in Serum or Plasma Ordered By: Kvng Ochoa on 06-09-2024 Anion gap [Moles/Vol] 13 mmol/L 5-15 [facility] Automated lymphocyte count a s percentage of total leukocytesOrdered By: Kvng Ochoa on 06-09-2024 Lymphocytes/100 WBC Auto (Unsp spec) 23.0 % 19-41 [facility] BUN/creatinine ratioOrdered By: Kvng Ochoa on 06-09-2024 Urea nitrogen/Creatinine [Mass ratio] 21.5 mg/mg High 10-20 [facility] Basophil percentageOrdered B y: Kvng Ochoa on 06-09-2024 Basophils/100 WBC (Bld) 0.6 % 0-[address] [facility] Carbon dioxide, total [Moles /volume] in Central venous bloodOrdered By: Kvng Ochoa on 06-09-2024 CO2 [Moles/Vol] 22.4 mmol/L 21.0-32.0 [facility] Chloride assayOrdered By: Costa Ochoa on 06-09-2024 Chloride [Moles/Vol] 108 mmol/L 98-108 [facility] Eosinophil percentageOrdered By: Kvng Ochoa on 06-09-2024 Eosinophils/100 WBC (Bld) 4.8 % 0-5 [facility] Erythrocyte distribution wid th ratioOrdered By: Kvng Ochoa on 06-09-2024 Erythrocyte distribution width (RBC) [Ratio] 14.6 % 11.6-14.6 [facility] Erythrocyte distribution wid th standard deviationOrdered By: Kvng Ochoa on 06-09-2024 Erythrocyte distribution width (RBC) [Entitic vol] 49.2 fL High 35.1-43.9 [facility] Erythrocyte distribution width (RBC) [Ratio] 49.2 fl High 35.1-43.9 [facility] GFR/1.73 sq M.predicted sonia g non-blacks MDRD (S/P/Bld) [Vol rate/Area]Ordered By: Kvng Ochoa on 06-09-2024 Estimated GFR (MDRD) Non-Af Amer 59 Low >60 [facility] Comment on above: mL/min/1.73m2 CKD-EP I Creatinine Equation (2020) Glomerular filtration rate ( GFR) estimation/1.73 sq m using serum, plasma, or whole bOrdered By: Kvng Ochoa on 06-09-2024 GFR/1.73 sq M.predicted among non-blacks MDRD (S/P/Bld) [Vol rate/Area] 59 mL/min/{1.73_m2} Low >60 [facility] Comment on above: mL/min/1.73m2 CKD-EP I Creatinine Equation (2020) Hematocrit Auto (Bld) [Volum e fraction]Ordered By: Kvng Ochoa on 06-09-2024 Hematocrit (Bld) [Volume fraction] 38.3 % 37-47 [facility] Hemoglobin A1c percentageOrd ered By: Kvng Ochoa on 06-09-2024 HbA1c (Bld) [Mass fraction] 6.5 % >5.7 [facility] Hemoglobin measurementOrdere d By: Kvng Ochoa on 06-09-2024 Hemoglobin (Bld) [Mass/Vol] 12.4 g/dL 12.0-15.0 [facility] Immature granulocytes/100 WB C Auto (Bld)Ordered By: Kvng Ochoa on 06-09-2024 Immature granulocytes/100 WBC (Bld) 0.200 % 0.0-0.9 [facility] Comment on above: IG% - Immature Granu locytes (promyelocytes, myelocytes and metamyelocytes) > 1% indicates that a LEFT SHIFT is Present. Lymphocytes Auto (Unsp spec) [#/Vol]Ordered By: Kvng Ochoa on 06-09-2024 Lymphocytes (Bld) [#/Vol] 2.06 10*3/uL 0.83-4.5 1 [facility] Lymphocytes/100 WBC Auto (Un sp spec)Ordered By: Kvng Ochoa on 06-09-2024 Lymphocytes/100 WBC (Bld) 23.0 % 19-41 [facility] MCV (mean corpuscular volume ) determinationOrdered By: Kvng Ochoa on 06-09-2024 MCV (RBC) [Entitic vol] 91.8 fL 81-[address] [facility] Mean corpuscular hemoglobin (MCH) determinationOrdered By: Kvng Ochoa on 06-09-2024 MCH (RBC) [Entitic mass] 29.7 pg 27.0-32.0 [facility] Mean corpuscular hemoglobin concentration (MCHC) determinationOrdered By: Kvng Ochoa on 06-09-2024 MCHC (RBC) [Mass/Vol] 32.4 g/dL 32-36 [facility] Mean platelet volume determi nationOrdered By: Kvng Ochoa on 06-09-2024 Platelet mean volume (Bld) [Entitic vol] 10.2 fL 6.2-12.0 [facility] Monocyte percentageOrdered B y: Kvng Ochoa on 06-09-2024 Monocytes/100 WBC (Bld) 8.6 % 0-[address] [facility] Neutrophil percentageOrdered By: Kvng Ochoa on 06-09-2024 Neutrophils/100 WBC (Bld) 62.8 % 47-70 [facility] Nucleated red blood cell per centageOrdered By: Kvng Ochoa on 06-09-2024 Nucleated RBC/100 WBC (Bld) [Ratio] 0 % 0-5 [facility] Platelet countOrdered By: Costa Ochoa on 06-09-2024 Platelets (Bld) [#/Vol] 323 10*3/uL 150-450 [facility] Potassium (Unsp spec) [Mass/ Vol]Ordered By: Kvng Ochoa on 06-09-2024 Potassium [Moles/Vol] 4.7 mmol/L 3.3-5.1 [facility] Potassium measurement (mass/ volume)Ordered By: Kvng Ochoa on 06-09-2024 Potassium (Unsp spec) [Mass/Vol] 4.7 mmol/L 3.3-5.1 [facility] RBC Auto (Bld) [#/Vol]Ordere d By: Kvng Ochoa on 06-09-2024 RBC (Bld) [#/Vol] 4.17 10*6/uL Low 4.2-5.4 [facility] Serum creatinine measurement (mass/volume)Ordered By: Kvng Ochoa on 06-09-2024 Creatinine [Mass/Vol] 0.94 mg/dL 0.70-1.20 [facility] Serum glucose measurement (m ass/volume)Ordered By: Kvng Ochoa on 06-09-2024 Glucose [Mass/Vol] 137 mg/dL High 70-99 [facility] Serum or plasma calcium viktoria urement (mass/volume)Ordered By: Kvng Ochoa on 06-09-2024 Calcium [Mass/Vol] 8.9 mg/dL 7.6-11.0 [facility] Serum or plasma urea nitroge n measurement (mass/volume)Ordered By: Kvng Ochoa on 06-09-2024 Urea nitrogen [Mass/Vol] 20 mg/dL High 4-19 [facility] Sodium levelOrdered By: Dru Ochoa on 06-09-2024 Sodium [Moles/Vol] 143 mmol/L 133-145 [facility] White blood cell (WBC) count Ordered By: Kvng Ochoa on 06-09-2024 WBC (Bld) [#/Vol] 9.0 10*3/uL 4.4-11.0 [facility] INR Coag (BldC) [Relative ti me]Ordered By: Cesar Cole on 05-19-2024 INR Coag (Bld) [Relative time] 2.9 {INR} [facility] Comment on above: Critical Value > 4.0 International normalized rat io (INR) measurement by fingerstickOrdered By: Cesar Cole on 05-19-2024 INR Coag (BldC) [Relative time] 2.9 [facility] Comment on above: Critical Value > 4.0 PT Coag (Bld) [Time]Ordered By: Cesar Cole on 05-19-2024 Bedside Prothrombin Time 30.4 SEC High 11.7-14.9 [facility] Whole blood prothrombin time Ordered By: Cesar Cole on 05-19-2024 PT Coag (Bld) [Time] 30.4 s High 11.7-14.9 [facility] Serum or plasma lamotrigine measurement (mass/volume)Ordered By: Anant Juarez on 05-12-2024 lamoTRIgine [Mass/Vol] 1.8 ug/mL Low 2.0-20.0 [facility] Comment on above: Detection Limit = 1. 0Performed at: [employer] [id number] Director: Brandon Wells MD, Phone: [phone] Venous blood ammonia measure mentOrdered By: Anant Juarez on 05-12-2024 Ammonia (P) [Moles/Vol] 17.0 umol/L 11-32 [facility] lamoTRIgine [Mass/Vol]Ordere d By: Anant Juarez on 05-12-2024 Lamotrigine (Lamictal) Level 1.8 ug/mL Low 2.0-20.0 [facility] Comment on above: Detection Limit = 1. 0Performed at: [employer] [id number] [place], [place] [id number] Director: Brandon Wells MD, Phone: [phone] Neurology Visit Reporton Neurology Visit Report [facility] [address] [facility], [address] [place] [id number] OFFICE VISIT Date of Service: 05/10/24 MR#: [id number] Acct: [id number] Name: EZRA GONZALEZ Rep #: [id number] : 1935 Provider: Dr. Anant baez MD [...] had difficulty managing her finances in an molder sweep way. She has become lost while driving [...] nature. Th (more content not included)... Normal [facility] INR Coag (BldC) [Relative ti me]Ordered By: Cesar Cole on 05-05-2024 INR Coag (Bld) [Relative time] 2.5 {INR} [facility] Comment on above: Critical Value > 4.0 PT Coag (Bld) [Time]Ordered By: Cesar Cole on 05-05-2024 Bedside Prothrombin Time 26.9 SEC High 11.7-14.9 [facility] International normalized rat io (INR) calculationOrdered By: Kvng Ochoa on 04-28-2024 INR Coag (Bld) [Relative time] 3.4 {INR} [facility] Prothrombin timeOrdered By: Kvng Ochoa on 04-28-2024 PT Coag (PPP) [Time] 35.4 s High 11.7-14.9 [facility] International normalized rat io (INR) calculationOrdered By: Kvng Ochoa on 04-14-2024 INR Coag (Bld) [Relative time] 3.0 {INR} [facility] Prothrombin timeOrdered By: Kvng Ochoa on 04-14-2024 PT Coag (PPP) [Time] 31.4 s High 11.7-14.9 [facility] Blood urea nitrogen (BUN)/cr eatinine ratioOrdered By: Kvng Ochoa on 04-09-2024 Urea nitrogen/Creatinine [Mass ratio] 13.5 mg/mg 10- [facility] Carbon dioxide measurementOr dered By: Kvng Ochoa on 04-09-2024 CO2 [Moles/Vol] 28.0 mmol/L 21.0-32.0 [facility] Chloride measurementOrdered By: Kvng Ochoa on 04-09-2024 Chloride [Moles/Vol] 106 mmol/L 98-107 [facility] Estimated glomerular filtrat ion rate (GFR) AmericanOrdered By: Kvng Ochoa on 04-09-2024 Estimated GFR (MDRD) Amer 70 mL/min >60 [facility] Comment on above: GFR Calc Glomerular filtration rate ( GFR) estimationOrdered By: Kvng Ochoa on 04-09-2024 Estimated GFR (MDRD) Non-Af Amer 58 mL/min Low >60 [facility] Comment on above: Non- GFR Calc Glucose measurementOrdered B y: Kvng Ochoa on 04-09-2024 Glucose [Mass/Vol] 116 mg/dL High 74-106 [facility] Comment on above: Fasting Glucose resu lt from 100 to 125 mg/dL suggests IMPAIRED HOMEOSTASIS per A.D.A. criteria. Potassium measurementOrdered By: Kvng Ochoa on 04-09-2024 Potassium [Moles/Vol] 4.3 mmol/L 3.5-5.1 [facility] Serum anion gap measurementO rdered By: Kvng Ochoa on 04-09-2024 Anion gap [Moles/Vol] 3 mmol/L Low 5-15 [facility] Serum or plasma calcium viktoria urement (mass/volume)Ordered By: Kvng Ochoa on 04-09-2024 Calcium [Mass/Vol] 8.8 mg/dL 8.5-10.1 [facility] Serum or plasma creatinine m easurement (mass/volume)Ordered By: Kvng Ochoa on 04-09-2024 Creatinine [Mass/Vol] 0.96 mg/dL 0.55-1.02 [facility] Comment on above: The validity of the calculated GFR & GFRAA in patients over 70 years has not been determined. Clinical correlation is essential. Serum or plasma urea nitroge n measurement (mass/volume)Ordered By: Kvng Ochoa on 04-09-2024 Urea nitrogen [Mass/Vol] 13 mg/dL 7-18 [facility] Sodium levelOrdered By: Dru Ochoa on 04-09-2024 Sodium [Moles/Vol] 137 mmol/L 136-145 [facility] International normalized rat io (INR) calculationOrdered By: Kvng Ochoa on 04-06-2024 INR Coag (Bld) [Relative time] 2.6 {INR} [facility] Prothrombin timeOrdered By: Kvng Ochoa on 04-06-2024 PT Coag (PPP) [Time] 28.8 s High 11.7-14.9 [facility] INR Coag (BldC) [Relative ti me]Ordered By: Kvng Ochoa on 04-05-2024 INR Coag (Bld) [Relative time] 3.5 {INR} [facility] Comment on above: Critical Value > 4.0 PT Coag (Bld) [Time]Ordered By: Kvng Ochoa on 04-05-2024 Bedside Prothrombin Time 35.4 SEC High 11.7-14.9 [facility] International normalized rat io (INR) calculationOrdered By: Kvng Ochao on 03-29-2024 INR Coag (Bld) [Relative time] 1.5 {INR} [facility] Prothrombin timeOrdered By: Kvng Ochoa on 03-29-2024 PT Coag (PPP) [Time] 17.9 s High 11.7-14.9 [facility] INR Coag (BldC) [Relative ti me]Ordered By: Kvng Ochoa on 03-26-2024 INR Coag (Bld) [Relative time] 3.4 {INR} [facility] Comment on above: Critical Value > 4.0 PT Coag (Bld) [Time]Ordered By: Kvng Ochoa on 03-26-2024 Bedside Prothrombin Time 34.4 SEC High 11.7-14.9 [facility] INR Coag (BldC) [Relative ti me]Ordered By: Kvng Ochoa on 03-25-2024 INR Coag (Bld) [Relative time] 3.8 {INR} [facility] Comment on above: Critical Value > 4.0 PT Coag (Bld) [Time]Ordered By: Kvng Ochoa on 03-25-2024 Bedside Prothrombin Time 37.8 SEC High 11.7-14.9 [facility] International normalized rat io (INR) calculationOrdered By: Kvng Ochoa on 03-19-2024 INR Coag (Bld) [Relative time] 3.0 {INR} [facility] Prothrombin timeOrdered By: Kvng Ochoa on 03-19-2024 PT Coag (PPP) [Time] 30.7 s High 11.7-14.9 [facility] INR Coag (BldC) [Relative ti me]Ordered By: Kvng Ochoa on 03-17-2024 INR Coag (Bld) [Relative time] 3.3 {INR} [facility] Comment on above: Critical Value > 4.0 PT Coag (Bld) [Time]Ordered By: Kvng Ochoa on 03-17-2024 Bedside Prothrombin Time 34.2 SEC High 11.7-14.9 [facility] INR Coag (BldC) [Relative ti me]Ordered By: Kvng Ochoa on 03-10-2024 INR Coag (Bld) [Relative time] 2.4 {INR} [facility] Comment on above: Critical Value > 4.0 PT Coag (Bld) [Time]Ordered By: Kvng Ochoa on 03-10-2024 Bedside Prothrombin Time 25.4 SEC High 11.7-14.9 [facility] International normalized rat io (INR) calculationOrdered By: Kvng Ochoa on 03-08-2024 INR Coag (Bld) [Relative time] 1.8 {INR} [facility] Prothrombin timeOrdered By: Kvng Ochoa on 03-08-2024 PT Coag (PPP) [Time] 21.1 s High 11.7-14.9 [facility] INR Coag (BldC) [Relative ti me]Ordered By: Kvng Ochoa on 03-04-2024 INR Coag (Bld) [Relative time] 1.8 {INR} [facility] Comment on above: Critical Value > 4.0 PT Coag (Bld) [Time]Ordered By: Kvng Ochoa on 03-04-2024 Bedside Prothrombin Time 20.2 SEC High 11.7-14.9 [facility] INR Coag (BldC) [Relative ti me]Ordered By: Kvng Ochoa on 02-05-2024 INR Coag (Bld) [Relative time] 2.2 {INR} [facility] Comment on above: Critical Value > 4.0 PT Coag (Bld) [Time]Ordered By: Kvng Ochoa on 02-05-2024 Bedside Prothrombin Time 22.8 SEC High 11.7-14.9 [facility] Capillary blood internationa l normalized ratio (INR)Ordered By: Alexandra Hagen on 06-30-2023 INR Coag (BldC) [Relative time] 2.4 [facility] Comment on above: Critical Value > 4.0 Whole blood prothrombin time Ordered By: Alexandra Hagen on 06-30-2023 PT Coag (Bld) [Time] 24.6 s 11.7-14.9 [facility] CARECOORDon 2023 [facility] Patient Choice Patient Name: EZRA GONZALEZ Date of : 1935 [facility] CARECOORDon 06-20-2023 [facility] Next Site of Care Admission Date: 06/16/2023 01:38 PM Patient Name: EZRA GONZALEZ Location: [address] [id number] Date of : 1935 ------- Placement Information ------- Referral Type:Home Health Care Services - New Referral ID:[id number] Provider Name:[facility] Address 1:[address] Address 2: City:[place] Selection Factors:Patient/Famil y Choice State:[place] Normal [facility], pt i s requesting [...] pt order lunch. Notified TONIO, RN and cracking unit operator. . [facility] I SPOKE WITH DONOVAN, REPRODUCTION MACHINE LOADER AT [facility]. THEY CAN TAKE PT BACK TODAY. THEY CAN PROVIDE TRANSPORTATION BACK TO FACILITY AROUND 3 PM. AWARE PT WILL NEED PT AT FACILITY, THEY USE [facility] [place], DID LET HC LIAISON NOW. WENT TO [...] SECURE CHAT WITH CONNIE PEREZ REGARDING THIS. [facility] Laboratory - Chemistry and C hemistry - challengeon 06-20-2023 Glucose [Mass/Vol] 125 mg/dL High 70 - 100 mg/dL [facility] Laboratory - Coagulationon 0 3-22-2024 PT Coag (Bld) [Time] 11.3 s 9.0 - 12.0 s [facility] No Panel Informationon 06-19 Interpretation and review of laboratory results Abnormal Trina Alcazar th Performed by: [facility], [address] [place] [address] CLIA ID: [id number] [facility] Radiology Study observation (narrative) Trina isabel PROTHROMBIN TIMEon INR Coag (PPP) [Relative time] 1.1 {INR} Normal 0.9-1.1 [facility] Comment on above: Result Comment: Reji mmended [...] Myocardial Infarction Performed By: #### Akanksha [id number] ####Esthetician: ALEXANDRA BUSTAMANTE ([id number])[facility] ([facility])[address] [place] [address] PT Coag (PPP) [Time] 11.3 s Normal 9.0-12.0 [facility] Comment on above: Performed By: #### Akanksha [id number] ####Esthetician: ALEXANDRA BUSTAMANTE ([id number])[facility] ([facility])[address] [place] [address] [place] PT Coag (Bld) [Time]on 06-19 INR Coag (PPP) [Relative time] 1.1 {INR} 0.9 - 1.1 [facility] Comment on above: Recommended Anticoag ulant [...] Interpretation and review of laboratory results Normal [facility] Progress Noteon 06-20-2023 Progress Note Dc via DM cot to Josep MCARTHUR with all belongings [facility] Progress Note Called report to Maryanne at [facility] Progress Note [facility] Anticoagulatio n Management Service (RIA) Inpatient Warfarin Consult HPI: Ezra Gonzalez is a 87 y.o. female admitted on 06/16/2023 for Closed displaced fracture of medial condyle of right humerus, initial encounter [S42.128N] History reviewed. No pertinent past medical history. [...] patient can be classified as high risk ([id number] = 8). 2. Monitor for s/s of bleeding and drug interactions. Will adjust dose accordingly 3. RIA will manage while inpatient Dc Lombardi, JpD Candidate Toshia Sanches, JpD, BCPS RIA is available daily [phone] via daysoft Chat. If no response on daysoft Chat then please page [phone]. Normal [facility] BASIC METABOLIC PANELon 05-30 Anion gap [Moles/Vol] 11 mmol/L Normal 3-13 [facility] Comment on above: Performed By: #### L [id number] ####Esthetician: ALEXANDRA BUSTAMANTE ([id number])[facility] ([facility] Calcium [Mass/Vol] 8.3 mg/dL Low 8.4-10.4 [facility] Comment on above: Performed By: #### L [id number] ####Esthetician: ALEXANDRA BUSTAMANTE ([id number])[facility] ([facility])[address] [place] [address] Chloride [Moles/Vol] 102 mmol/L Normal 98-107 [facility] Comment on above: Performed By: #### L [id number] ####Esthetician: ALEXANDRA BUSTAMANTE ([id number])[facility] ([facility])[address] [place] [address] CO2 [Moles/Vol] 21 mmol/L Low 22-30 [facility] Comment on above: Performed By: #### L AB15 ####Esthetician: ALEXANDRA BUSTAMANTE ([phone])[facility] ([facility])[address] [place] [address] Creatinine [Mass/Vol] 0.84 mg/dL Normal 0.52-1.04 [facility] Comment on above: Performed By: #### L AB15 ####Esthetician: ALEXANDRA BUSTAMANTE ([id number])[facility] ([facility])[address] [place] [address] [place] GLOMERULAR FILTRATION RATE ML/MIN/1.73 SQ M.PREDICTED 67.4 mL/min/1.73m*2 Normal >60.0 [facility] Comment on above: Result Comment: Calc ulation based on the Chronic Kidney Disease Epidemiology Collaboration (CKD-EPI) equation refit without adjustment for race Performed By: #### L AB15 ####Esthetician: ALEXANDRA BUSTAMANTE ([id number])[facility] ([facility])[address] [place] [address] [place] Glucose [Mass/Vol] 263 mg/dL High 70-100 [facility] Comment on above: Performed By: #### L AB15 ####Esthetician: ALEXANDRA BUSTAMANTE ([id number])[facility] ([facility])[address] [place] [address] [place] Potassium [Moles/Vol] 4.7 mmol/L Normal 3.5-5.1 [facility] Comment on above: Performed By: #### L AB15 ####Esthetician: ALEXANDRA BUSTAMANTE ([id number])[facility])[address] [place] [address] Sodium [Moles/Vol] 133 mmol/L Low 135-145 [facility] Comment on above: Performed By: #### L [id number] ####Esthetician: ALEXANDRA BUSTAMANTE ([id number])[facility] ([facility])[address] [place] [address] Urea nitrogen [Mass/Vol] 27 mg/dL High 7-17 [facility] Comment on above: Performed By: #### L AB15 ####Esthetician: ALEXANDRA BUSTAMANTE ([phone])[facility])[address] [place] [address] Basic metabolic 1998 panelon 06-19-2023 Anion gap [Moles/Vol] 11 mmol/L 3 - 13 mmol/L [facility] Calcium [Mass/Vol] 8.3 mg/dL Low 8.4 - 10. 4 mg/dL [facility] Chloride [Moles/Vol] 102 mmol/L 98 - 10 7 mmol/L [facility] CO2 [Moles/Vol] 21 mmol/L Low 22 - 30 mmol/L [facility] Creatinine [Mass/Vol] 0.84 mg/dL 0.52 - 1.04 mg/dL [facility] GFR/1.73 sq M.predicted MDRD (S/P/Bld) [Vol rate/Area] 67.4 mL/min/{1.73_m2} - PINF [facility] Comment on above: Calculation based on the Chronic Kidney Disease Epidemiology Collaboration (CKD-EPI) equation refit without adjustment for race Glucose [Mass/Vol] 263 mg/dL High 70 - 100 mg/dL [facility] Interpretation and review of laboratory results Abnormal [facility] Potassium [Moles/Vol] 4.7 mmol/L 3.5 - 5.1 mmol/L [facility] Sodium [Moles/Vol] 133 mmol/L Low 135 - 145 mmol/L [facility] Urea nitrogen [Mass/Vol] 27 mg/dL High 7 - 17 mg/d L [facility] CARECOORDon 06-19-2023 [place] DAY #1 S/P ORIF OF RIGHT ARM. WAITING FOR PT/OT EVALS FOR DC PLANNING. Normal [facility] CBC W Auto Differential pane l (Bld)Ordered By: Leona Thakur on 06-19-2023 Basophils (Bld) [#/Vol] 0.0 10*3/uL 0.0 - 0.2 10*3/uL [facility] Basophils/100 WBC (Bld) 0.2 % 0.0 - 2.0 % [facility] Eosinophils (Bld) [#/Vol] 0.0 10*3/uL 0. 0 - 0.5 10*3/uL [facility] Eosinophils/100 WBC (Bld) 0.0 % 0.0 - 6.0 % [facility] Erythrocyte distribution width (RBC) [Ratio] 13.6 % 11.5 - 15.0 % [facility] Hematocrit (Bld) [Volume fraction] 35.0 % 35.0 - 47.0 % [facility] Hemoglobin (Bld) [Mass/Vol] 11.4 g/dL Low 11.7 - 16.0 g/dL [facility] Immature granulocytes (Bld) [#/Vol] 0.1 10*3/uL High NINF - 0.1 10*3/uL [facility] Immature granulocytes/100 WBC (Bld) 0.6 % 0.0 - 2.0 % [facility] Interpretation and review of laboratory results Abnormal [facility] th Lymphocytes (Bld) [#/Vol] 0.8 10*3/uL Low 1. 0 - 4.3 10*3/uL [facility] Lymphocytes/100 WBC (Bld) 6.4 % Low 15 .0 - 45.0 % [facility] MCH (RBC) [Entitic mass] 28.6 pg 26. 0 - 34.0 pg [facility] MCHC (RBC) [Mass/Vol] 32.6 % 30.5 - 36.0 % [facility] MCV (RBC) [Entitic vol] 87.9 fL 77.0 - 99.0 fL [facility] Monocytes (Bld) [#/Vol] 0.6 10*3/uL 0.0 - 0.9 10*3/uL [facility] Monocytes/100 WBC (Bld) 4.6 % Low 5.0 - 13.0 % [facility] Neutrophils (Bld) [#/Vol] 11.2 10*3/uL High 1. 8 - 7.5 10*3/uL [facility] Neutrophils/100 WBC (Bld) 88.2 % High 38 .0 - 82.0 % [facility] Nucleated RBC/100 WBC (Bld) [Ratio] 0.0 % [facility] Platelet mean volume (Bld) [Entitic vol] 10.2 fL 9.0 - 12.7 fL [facility] Platelets (Bld) [#/Vol] 260 10*3/uL 140 - 440 10*3/uL [facility] RBC (Bld) [#/Vol] 3.98 10*6/uL 3.80 - 5.2 0 10*6/uL [facility] WBC (Bld) [#/Vol] 12.7 10*3/uL High 3.6 - 10.7 10*3/uL [facility] CBC WITH AUTO DIFFERENTIALon 06-19-2023 Basophils (Bld) [#/Vol] 0.0 10*3/uL Normal 0.0-0.2 [facility] Comment on above: Performed By: #### L [id number] ####Esthetician: ALEXANRDA BUSTAMANTE ([id number])[facility])[address] [place] [address] Basophils/100 WBC (Bld) 0.2 % Normal 0.0-2.0 S [facility] Comment on above: Performed By: #### L [id number] ####Esthetician: ALEXANDRA [id number])[facility] ([facility])[address] [place] [address] [place] Eosinophils (Bld) [#/Vol] 0.0 10*3/uL Normal 0.0-0.5 [facility] Comment on above: Performed By: #### L [id number] ####Esthetician: ALEXANDRA BUSTAMANTE ([phone])[facility] ([facility])[address] [place] [address] [place] Eosinophils/100 WBC (Bld) 0.0 % Normal 0.0-6.0 [facility] Comment on above: Performed By: #### L [id number] ####Esthetician: ALEXANDRA BUSTAMANTE ([id number])[facility])[address] [place] [address] Erythrocyte distribution width (RBC) [Ratio] 13.6 % Normal 11.5-15.0 [facility] Comment on above: Performed By: #### L [id number] ####Esthetician: ALEXANDRA BUSTAMANTE ([id number])[facility])[address] [place] [address] Hematocrit (Bld) [Volume fraction] 35.0 % Normal 35.0-47.0 [facility] Comment on above: Performed By: #### L [id number] ####Esthetician: ALEXANDRA BUSTAMANTE ([id number])[facility])[address] [place] [address] Hemoglobin (Bld) [Mass/Vol] 11.4 g/dL Low 11.7-16.0 [facility] Comment on above: Performed By: #### L [id number] ####Esthetician: ALEXANDRA BUSTAMANTE ([id number])[facility])[address] [place] [address] IMMATURE GRANS % 0.6 % Normal 0.0-2.0 [facility] Comment on above: Performed By: #### L [id number] ####Esthetician: ALEXANDRA BUSTAMANTE ([phone])[facility])[address] [place] [address] IMMATURE GRANS ABSOLUTE 0.1 10*3/uL High <0.1 [facility] Comment on above: Performed By: #### L [id number] ####Esthetician: ALEXANDRA BUSTAMANTE ([id number])[facility])[address] [place] [address] Lymphocytes (Bld) [#/Vol] 0.8 10*3/uL Low 1.0-4.3 [facility] Comment on above: Performed By: #### L [id number] ####Esthetician: ALEXANDRA BUSTAMANTE ([id number])[facility])[address] [place] [address] Lymphocytes/100 WBC (Bld) 6.4 % Low 15.0-45.0 [facility] Comment on above: Performed By: #### L [id number] ####Esthetician: ALEXANDRA BUSTAMANTE ([id number])[facility])[address] [place] [address] MCH (RBC) [Entitic mass] 28.6 pg Normal 26.0-34.0 [facility] Comment on above: Performed By: #### L [id number] ####Esthetician: ALEXANDRA BUSTAMANTE ([id number])[facility])[address] [place] [address] MCHC 32.6 % Normal 30.5-36.0 [facility] Comment on above: Performed By: #### L [id number] ####Esthetician: ALEXANDRA BUSTAMANTE ([id number])[facility] ([facility])[address] [place] [address] MCV (RBC) [Entitic vol] 87.9 fL Normal 77.0-99.0 [facility] Comment on above: Performed By: #### L [id number] ####Esthetician: ALEXANDRA BUSTAMANTE ([id number])[facility])[address] [place] [address] Monocytes (Bld) [#/Vol] 0.6 10*3/uL Normal 0.0-0.9 [facility] Comment on above: Performed By: #### L [id number] ####Esthetician: ALEXANDRA BUSTAMANTE ([id number])[facility])[address] [place] [address] Monocytes/100 WBC (Bld) 4.6 % Low 5.0-13.0 S [facility] Comment on above: Performed By: #### L [id number] ####Esthetician: ALEXANDRA BUSTAMANTE ([id number])[facility] ([facility])[address] [place] [address] NEUTROPHILS ABSOLUTE 11.2 10*3/uL High 1.8-7.5 [facility] Comment on above: Performed By: #### L [id number] ####Esthetician: ALEXANDRA BUSTAMANTE ([id number])[facility] ([facility])[address] [place] [address] Neutrophils/100 WBC (Bld) 88.2 % High 38.0-82.0 [facility] Comment on above: Performed By: #### L [id number] ####Esthetician: ALEXANDRA BUSTAMANTE ([id number])[facility] ([facility])[address] [place] [address] NRBC 0.0 /100 WBCs Normal 0.0-2.0 [facility] Comment on above: Performed By: #### L [id number] ####Esthetician: ALEXANDRA BUSTAMANTE ([id number])[facility] ([facility])[address] [place] [address] Platelet mean volume (Bld) [Entitic vol] 10.2 fL Normal 9.0-12.7 [facility] Comment on above: Performed By: #### L [id number] ####Esthetician: ALEXANDRA BUSTAMANTE ([id number])[facility] ([facility])[address] [place] [address] Platelets (Bld) [#/Vol] 260 10*3/uL Normal 140-440 [facility] Comment on above: Performed By: #### L [id number] ####Esthetician: ALEXANDRA BUSTAMANTE ([id number])[facility] ([facility])[address] [place] [address] RBC (Bld) [#/Vol] 3.98 10*6/uL Normal 3.80-5.20 [facility] Comment on above: Performed By: #### L [id number] ####Esthetician: ALEXANDRA BUSTAMANTE ([id number])[facility] ([facility])[address] [place] [address] WBC (Bld) [#/Vol] 12.7 10*3/uL High 3.6-10.7 [facility] Comment on above: Performed By: #### L [id number] ####Esthetician: ALEXANDRA BUSTAMANTE ([id number])[facility] ([facility])[address] [place] [address] Laboratory - Chemistry and C hemistry - challengeon 06-19-2023 Glucose [Mass/Vol] 220 mg/dL High 70 - 100 mg/dL [facility] Glucose [Mass/Vol] 137 mg/dL High 70 - 100 mg/dL [facility] Glucose [Mass/Vol] 141 mg/dL High 70 - 100 mg/dL [facility] Glucose [Mass/Vol] 177 mg/dL High 70 - 100 mg/dL [facility] Laboratory - Coagulationon 0 06-19-2023 PT Coag (Bld) [Time] 11.3 s 9.0 - 12.0 s [facility] No Panel Informationon 06-18 Interpretation and review of laboratory results Abnormal [facility] Performed by: [facility], [address] [place] [address] CLIA ID: [id number] [facility] Interpretation and review of laboratory results Abnormal [facility] Performed by: [facility], [address] [place] [address] CLIA ID: [id number] [facility] Interpretation and review of laboratory results Abnormal [facility] Performed by: [facility], [address] [place] [address] CLIA ID: [id number] [facility] Interpretation and review of laboratory results Abnormal [facility] Performed by: [facility], [address] [place] [address] CLIA ID: [id number] [facility] Radiology Study observation (narrative) Trina Oconnell alth Radiology Study observation (narrative) Trina Oconnell alth Radiology Study observation (narrative) Trina Oconnell alth Radiology Study observation (narrative) Trina Oconnell alth PROTHROMBIN TIMEon INR Coag (PPP) [Relative time] 1.1 {INR} Normal 0.9-1.1 [facility] Comment on above: Result Comment: Reji mmended [...] Myocardial Infarction Performed By: #### L [id number] ####Esthetician: ALEXANDRA BUSTAMANTE ([id number])[facility] ([facility])[address] [place] [address] PT Coag (PPP) [Time] 11.3 s Normal 9.0-12.0 [facility] Comment on above: Performed By: #### L [id number] ####Esthetician: ALEXANDRA BUSTAMANTE ([id number])[facility] ([facility])[address] [place] [address] PT Coag (Bld) [Time]on 06-18 INR Coag (PPP) [Relative time] 1.1 {INR} 0.9 - 1.1 [facility] Comment on above: Recommended Anticoag ulant [...] Interpretation and review of laboratory results Normal [facility] Progress Noteon 06-19-2023 Progress Note [facility] Anticoagulatio n Management Service (RIA) Inpatient Warfarin Consult HPI: Ezra Gonzalez is a 87 y.o. female admitted on 06/16/2023 for Closed displaced fracture of medial condyle of right humerus, initial encounter [S48.917W] History reviewed. No pertinent past medical history. [...] patient can be classified as high risk ([id number] = 8). 2. Monitor for s/s of bleeding and drug interactions. Will adjust dose accordingly 3. RIA will manage while inpatient Dc Lombardi, PharmD Candidate Jp BolanosD, BCPS RIA is available daily [phone] via Intell[employer]. If no response on daysoft Chat then please page [phone]. Normal [facility] BASIC METABOLIC PANELon 05-30 Anion gap [Moles/Vol] 10 mmol/L Normal 3-13 [facility] Comment on above: Performed By: #### L AB15 ####Esthetician: ALEXANDRA BUSTAMANTE ([id number])[facility])[address] [place] [address] Calcium [Mass/Vol] 8.8 mg/dL Normal 8.4-10.4 [facility] Comment on above: Performed By: #### L AB15 ####Esthetician: ALEXANDRA BUSTAMANTE ([id number])[facility] ([facility])[address] [place] [address] [place] Chloride [Moles/Vol] 98 mmol/L Normal 98-107 [facility] Comment on above: Performed By: #### L AB15 ####Esthetician: ALEXANDRA BUSTAMANTE ([id number])[facility] ([facility])[address] [place] [address] [place] CO2 [Moles/Vol] 25 mmol/L Normal 22-30 [facility] Comment on above: Performed By: #### L AB15 ####Esthetician: ALEXANDRA BUSTAMANTE ([id number])[address] Creatinine [Mass/Vol] 0.83 mg/dL Normal 0.52-1.04 [facility] Comment on above: Performed By: #### L AB15 ####Esthetician: ALEXANDRA BUSTAMANTE ([id number])[address] GLOMERULAR FILTRATION RATE ML/MIN/1.73 SQ M.PREDICTED 68.3 mL/min/1.73m*2 Normal >60.0 [facility] Comment on above: Result Comment: Calc ulation based on the Chronic Kidney Disease Epidemiology Collaboration (CKD-EPI) equation refit without adjustment for race Performed By: #### L AB15 ####Esthetician: ALEXANDRA BUSTAMANTE ([id number])[address] Glucose [Mass/Vol] 163 mg/dL Normal [facility] Comment on above: Performed By: #### L AB15 ####Esthetician: ALEXANDRA [id number])[address] Order Comment: If no t done within the last 3 mos Performed By: #### L AB90 ####Esthetician: ALEXANDRA [id number])[address] Potassium [Moles/Vol] 4.6 mmol/L Normal 3.5-5.1 [facility] Comment on above: Performed By: #### L AB15 ####Esthetician: ALEXANDRA [id number])[address] Sodium [Moles/Vol] 133 mmol/L Low 135-145 [facility] Comment on above: Performed By: #### L AB15 ####Esthetician: ALEXANDRA [id number])[facility] ([facility])[address] [place] [address] Urea nitrogen [Mass/Vol] 24 mg/dL High 7-17 [facility] Comment on above: Performed By: #### L AB15 ####Esthetician: ALEXANDRA BUSTAMANTE ([id number])[facility] ([facility])[address] [place] [address] Basic metabolic 1998 panelon 06-18-2023 Anion gap [Moles/Vol] 10 mmol/L 3 - 13 mmol/L [facility] Calcium [Mass/Vol] 8.8 mg/dL 8.4 - 10. 4 mg/dL [facility] Chloride [Moles/Vol] 98 mmol/L 98 - 10 7 mmol/L [facility] CO2 [Moles/Vol] 25 mmol/L 22 - 30 mmol/L [facility] Creatinine [Mass/Vol] 0.83 mg/dL 0.52 - 1.04 mg/dL [facility] GFR/1.73 sq M.predicted MDRD (S/P/Bld) [Vol rate/Area] 68.3 mL/min/{1.73_m2} - PINF [facility] Comment on above: Calculation based on the Chronic Kidney Disease Epidemiology Collaboration (CKD-EPI) equation refit without adjustment for race Glucose [Mass/Vol] 163 mg/dL High 70 - 100 mg/dL [facility] Interpretation and review of laboratory results Abnormal [facility] Potassium [Moles/Vol] 4.6 mmol/L 3.5 - 5.1 mmol/L [facility] Sodium [Moles/Vol] 133 mmol/L Low 135 - 145 mmol/L [facility] Urea nitrogen [Mass/Vol] 24 mg/dL High 7 - 17 mg/d L [facility] CARECOORDon 06-18-2023 CAR[place]OORD Care Managment Initial Assessment Date: 06/18/2023 Patient Name: Ezra Gonzalez : 1935 Patient Information Source of Information: Patient Cognition/Language: WFL - Within Functional Limits Permission given to speak with patient guest service representative/caregi saira as indicated: No Confirmation of Payer with patient/family: Yes Payer Name: [facility] [place]: No Confirmation of Primary Care Physician: [...] CONTINUE TO FOLLOW. Shikha Gray RN Normal [facility] CBC W Auto Differential pane l (Bld)Ordered By: Nir Meza on 06-18-2023 Basophils (Bld) [#/Vol] 0.1 10*3/uL 0.0 - 0.2 10*3/uL [facility] Basophils/100 WBC (Bld) 0.4 % 0.0 - 2.0 % [facility] Eosinophils (Bld) [#/Vol] 0.2 10*3/uL 0. 0 - 0.5 10*3/uL [facility] Eosinophils/100 WBC (Bld) 1.3 % 0.0 - 6.0 % [facility] Erythrocyte distribution width (RBC) [Ratio] 13.8 % 11.5 - 15.0 % [facility] Hematocrit (Bld) [Volume fraction] 44.1 % 35.0 - 47.0 % [facility] Hemoglobin (Bld) [Mass/Vol] 13.9 g/dL 11.7 - 16.0 g/dL [facility] Immature granulocytes (Bld) [#/Vol] 0.1 10*3/uL High NINF - 0.1 10*3/uL [facility] Immature granulocytes/100 WBC (Bld) 0.4 % 0.0 - 2.0 % [facility] Interpretation and review of laboratory results Abnormal [facility] th Lymphocytes (Bld) [#/Vol] 2.0 10*3/uL 1. 0 - 4.3 10*3/uL [facility] Lymphocytes/100 WBC (Bld) 13.1 % Low 15 .0 - 45.0 % [facility] MCH (RBC) [Entitic mass] 28.0 pg 26. 0 - 34.0 pg [facility] MCHC (RBC) [Mass/Vol] 31.5 % 30.5 - 36.0 % [facility] MCV (RBC) [Entitic vol] 88.9 fL 77.0 - 99.0 fL [facility] Monocytes (Bld) [#/Vol] 1.4 10*3/uL High 0.0 - 0.9 10*3/uL [facility] Monocytes/100 WBC (Bld) 9.0 % 5.0 - 13.0 % [facility] Neutrophils (Bld) [#/Vol] 11.8 10*3/uL High 1. 8 - 7.5 10*3/uL [facility] Neutrophils/100 WBC (Bld) 75.8 % 38 .0 - 82.0 % [facility] Nucleated RBC/100 WBC (Bld) [Ratio] 0.0 % [facility] Platelet mean volume (Bld) [Entitic vol] 10.1 fL 9.0 - 12.7 fL [facility] Platelets (Bld) [#/Vol] 375 10*3/uL 140 - 440 10*3/uL [facility] RBC (Bld) [#/Vol] 4.96 10*6/uL 3.80 - 5.2 0 10*6/uL [facility] WBC (Bld) [#/Vol] 15.5 10*3/uL High 3.6 - 10.7 10*3/uL [facility] CBC WITH AUTO DIFFERENTIALon 06-18-2023 Basophils (Bld) [#/Vol] 0.1 10*3/uL Normal 0.0-0.2 [facility] Comment on above: Performed By: #### L [id number] ####Esthetician: ALEXANDRA BUSTAMANTE ([id number])[facility] ([facility])[address] [place] [address] [place] Basophils/100 WBC (Bld) 0.4 % Normal 0.0-2.0 [facility] Comment on above: Performed By: #### L [id number] ####Esthetician: ALEXANDRA BUSTAMANTE ([id number])[facility])[address] [place] [address] Eosinophils (Bld) [#/Vol] 0.2 10*3/uL Normal 0.0-0.5 [facility] Comment on above: Performed By: #### L [id number] ####Esthetician: ALEXANDRA BUSTAMANTE ([id number])[facility] ([facility])[address] [place] [address] Eosinophils/100 WBC (Bld) 1.3 % Normal 0.0-6.0 [facility] Comment on above: Performed By: #### L [id number] ####Esthetician: ALEXANDRA BUSTAMANTE ([id number])[facility])[address] [place] [address] Erythrocyte distribution width (RBC) [Ratio] 13.8 % Normal 11.5-15.0 [facility] Comment on above: Performed By: #### L [id number] ####Esthetician: ALEXANDRA BUSTAMANTE ([id number])[facility])[address] [place] [address] Hematocrit (Bld) [Volume fraction] 44.1 % Normal 35.0-47.0 [facility] Comment on above: Performed By: #### L [id number] ####Esthetician: ALEXANDRA BUSTAMANTE ([id number])[facility])[address] [place] [address] [place] Hemoglobin (Bld) [Mass/Vol] 13.9 g/dL Normal 11.7-16.0 [facility] Comment on above: Performed By: #### L [id number] ####Esthetician: ALEXANDRA BUSTAMANTE ([id number])[facility])[address] [place] [address] IMMATURE GRANS % 0.4 % Normal 0.0-2.0 [facility] Comment on above: Performed By: #### L [id number] ####Esthetician: ALEXANDRA BUSTAMANTE ([id number])[facility])[address] [place] [address] IMMATURE GRANS ABSOLUTE 0.1 10*3/uL High <0.1 [facility] Comment on above: Performed By: #### L [id number] ####Esthetician: ALEXANDRA BUSTAMANTE ([id number])[facility])[address] [place] [address] Lymphocytes (Bld) [#/Vol] 2.0 10*3/uL Normal 1.0-4.3 [facility] Comment on above: Performed By: #### L [id number] ####Esthetician: ALEXANDRA BUSTAMANTE ([id number])[facility])[address] [place] [address] Lymphocytes/100 WBC (Bld) 13.1 % Low 15.0-45.0 [facility] Comment on above: Performed By: #### L [id number] ####Esthetician: ALEXANDRA BUSTAMANTE ([id number])[facility])[address] [place] [address] MCH (RBC) [Entitic mass] 28.0 pg Normal 26.0-34.0 [facility] Comment on above: Performed By: #### L [id number] ####Esthetician: ALEXANDRA BUSTAMANTE ([id number])[facility])[address] [place] [address] MCHC 31.5 % Normal 30.5-36.0 [facility] Comment on above: Performed By: #### L [id number] ####Esthetician: ALEXANDRA BUSTAMANTE ([id number])[facility] ([facility])[address] [place] [address] MCV (RBC) [Entitic vol] 88.9 fL Normal 77.0-99.0 S [facility] Comment on above: Performed By: #### L [id number] ####Esthetician: ALEXANDRA BUSTAMANTE ([id number])[facility] ([facility])[address] [place] [address] Monocytes (Bld) [#/Vol] 1.4 10*3/uL High 0.0-0.9 [facility] Comment on above: Performed By: #### L [id number] ####Esthetician: ALEXANDRA BUSTAMANTE ([id number])[facility] ([facility])[address] [place] [address] Monocytes/100 WBC (Bld) 9.0 % Normal 5.0-13.0 [facility] Comment on above: Performed By: #### L [id number] ####Esthetician: ALEXANDRA BUSTAMANTE ([id number])[facility] ([facility])[address] [place] [address] NEUTROPHILS ABSOLUTE 11.8 10*3/uL High 1.8-7.5 [facility] Comment on above: Performed By: #### L [id number] ####Esthetician: ALEXANDRA BUSTAMANTE ([id number])[facility] ([facility])[address] [place] [address] Neutrophils/100 WBC (Bld) 75.8 % Normal 38.0-82.0 [facility] Comment on above: Performed By: #### L [id number] ####Esthetician: ALEXANDRA BUSTAMANTE ([id number])[facility] ([facility])[address] [place] [address] NRBC 0.0 /100 WBCs Normal 0.0-2.0 [facility] Comment on above: Performed By: #### L [id number] ####Esthetician: ALEXANDRA BUSTAMANTE ([id number])[facility] ([facility])[address] [place] [address] Platelet mean volume (Bld) [Entitic vol] 10.1 fL Normal 9.0-12.7 [facility] Comment on above: Performed By: #### L [id number] ####Esthetician: ALEXANDRA BUSTAMANTE ([id number])[facility])[address] [place] [address] Platelets (Bld) [#/Vol] 375 10*3/uL Normal 140-440 [facility] Comment on above: Performed By: #### L [id number] ####Esthetician: ALEXANDRA BUSTAMANTE ([id number])[facility])[address] [place] [address] RBC (Bld) [#/Vol] 4.96 10*6/uL Normal 3.80-5.20 [facility] Comment on above: Performed By: #### L [id number] ####Esthetician: ALEXANDRA BUSTAMANTE ([id number])[facility] ([facility])[address] [place] [address] WBC (Bld) [#/Vol] 15.5 10*3/uL High 3.6-10.7 [facility] Comment on above: Performed By: #### L [id number] ####Esthetician: ALEXANDRA BUSTAMANTE ([id number])[facility])[address] [place] [address] HEMOGLOBIN A1Con 06-18-2023 HbA1c (Bld) [Mass fraction] 7.3 % High <5.7 [facility] Comment on above: Order Comment: If no t done within the last 3 mos Result Comment: Norm al less than 5.7% Prediabetes 5.7% to 6.4% Diabetes 6.5% or higher --HgbA1C levels may not be accurate in patients who have renal disease, received recent blood transfusions, are anemic, or who have dyshemoglobinemia. Performed By: #### L AB90 ####Esthetician: ALEXANDRA BUSTAMANTE ([id number])[facility])[address] [place] [address] IDNon 06-18-2023 IDN The patient is Moderately Stable - Low risk of patient condition declining or worsening The patient's goals for the shift include rest and pain control The clinical goals for the shift include rest and pain control Normal [facility] Laboratory - Chemistry and C hemistry - challengeon 06-18-2023 Glucose [Mass/Vol] 189 mg/dL High 70 - 100 mg/dL [facility] Procalcitonin [Mass/Vol] 0.06 ng/mL 0.0 0 - 0.09 ng/mL [facility] Glucose [Mass/Vol] 121 mg/dL High 70 - 100 mg/dL [facility] Average glucose Estimated from glycated hemoglobin (Bld) [Mass/Vol] 163 mg/dL [facility] - Hematology and Cell countson 06-18-2023 HbA1c (Bld) [Mass fraction] 7.3 % High NINF - 5.7 % [facility] Comment on above: Normal less than 5.7 % Prediabetes 5.7% to 6.4% Diabetes 6.5% or higher --HgbA1C levels may not be accurate in patients who have renal disease, received recent blood transfusions, are anemic, or who have dyshemoglobinemia. No Panel Informationon 06-17 Interpretation and review of laboratory results Abnormal [facility] Performed by: [facility], [address] [place] [address] CLIA ID: [id number] [facility] There is no interpretation needed for this exam. IMAGING Interpretation and review of laboratory results Abnormal [facility] Performed by: [facility], [address] [place] [address] CLIA ID: [id number] [facility] Interpretation and review of laboratory results Abnormal [facility] Radiology Study observation (narrative) Trina isabel Radiology Study observation (narrative) Trina isabel Nursing Noteon 06-18-2023 Nursing Note Pt states no need to contact family. RN on floor states she will call pt's son,. Normal [facility] Nursing Note Patients wallet and watch locked up with security. OR notified patient states she has latex allergy Patients purse and glasses taken to pacu Normal [facility] Op Noteon 06-18-2023 Op Note [facility] [address] [facility] [address] Dept: [phone] Loc: [phone] Operative Report Patient Name: Ezra Gonzalez Date of : 1935 Date of Surgery: 06/18/23 Pre-operative diagnosis: Right intra-articular distal humerus fracture Post-operative diagnosis: Same Procedure(s): Open reduction internal fixation of right intra-articular distal humerus fracture Surgeon: Benitez Givens M.D. Senior Research Analyst(s): Lexa Aparicio M.D. Anesthesia: General and Regional [...] as well as medical complications such as VA, stroke, PE, DVT, and even . Pt [...] Lexa Aparicio MD at 06/18/23, 7:20 PM [facility] Op Note Date: 06/16/2023 - 06/18/2023 Location: [facility] OR Name: Ezra Gonzalez, : 1935, Diagnosis Pre-op Diagnosis * Closed displaced fracture of medial condyle of right humerus, initial encounter [S42.405F] Post-op Diagnosis * Closed displaced fracture of medial condyle of right humerus, initial encounter [S42.137E] Procedures OPEN REDUCTION INTERNAL FIXATION RIGHT DISTAL HUMERUS 51594 - [place] [employer]X HUMERAL SHFT FX W/PLATE/SCREWS W/WOCERCLAGE Surgeons * Benitez Givens - Primary Procedure Summary Anesthesia: * No anesthesia type entered * ASA: III Estimated Blood Loss: Minimal Drains: * None in log * Staff: Prosthetics Technician: Vivian Herrera RN Scrub Person: Linda Alvarez [...] in 2 weeks -Ortho to follow. Normal [facility] PROCALCITONIN TESTon 024 PROCALCITONIN 0.06 ng/mL Normal 0.00-0.09 [facility] Comment on above: Result Comment: ORDE R COMMENTS: PCT <0.50 = Low risk of severe sepsis and/or septic shock. PCT >2.00 = High risk of severe sepsis and/or septic shock. Performed By: #### L [id number] ####Esthetician: ALEXANDRA BUSTAMANTE ([id number])[facility] ([facility] Procalcitonin [Mass/Vol]on 0 06-18-2023 Interpretation and review of laboratory results Normal [facility] PCT <0.50 = Low risk of severe sepsis and/or septic shock. PCT >2.00 = High risk of severe sepsis and/or septic shock. [facility] Progress Noteon 06-18-2023 Progress Note Nutrition rescreen completed. Chart reviewed. Patient to be monitored and followed by the diet corrosion technician. Ele Butcher, DT [facility] Progress Note OCCUPATIONAL THERAPY [facility] Name/MRN: Ezra Gonzalez ([id number]) Date: 06/18/2023 OT eval and treat order received. Patient chart reviewed. Per Ortho note, Plan for ORIF od R distal humerus. Will hold evaluation till after surgery. Louisa Cespedes, OT Normal [facility] Progress Note PHYSICAL THERAPY [facility] Name/MRN: Ezra Gonzalez ([id number]) Date: 06/18/2023 PT orders received and chart reviewed. Per ortho note, Plan for ORIF R distal humerus. Will hold and attempt following surgery. Maryanne Neumann, PT [facility] ECG 12-LEADon 06-17-2023 ECG 12-LEAD IMPRESSION: Atrial fibrillation Probable left ventricular hypertrophy No previous ECG for comparison Electronically Signed On 06-17-2023 06:39:12 EDT by Thong Francois [facility] ED Nursing Noteon 06-17-2023 ED Nursing Note Patient resting in bed at this time, equal unlabored respirations noted and no acute distress, call león within reach Di Reyna RN 06/17/23 1153 [facility] ED Nursing Note Pt O2 desaturating t o mid 80s after receiving dilaudid IV. Pt placed on 2L NC and immediately back up to 95%. notified Alia Foster RN 06/17/23 1031 [facility] ED Nursing Note Pt upset with [...] US IV line. Juanjo Pringle RN 06/16/23 9501 Normal [facility] Laboratory - Chemistry and C hemistry - challengeon 06-17-2023 Glucose [Mass/Vol] 137 mg/dL High 70 - 100 mg/dL [facility] - Coagulationon 0 06-17-2023 PT Coag (Bld) [Time] 14.5 s High 9.0 - 12.0 s [facility] No Panel Informationon 06-16 Interpretation and review of laboratory results Abnormal [facility] Performed by: [facility], [address] [place] [address] CLIA ID: [id number] [facility] Atrial fibrillation Probable left ventricular hypertrophy No previous ECG for comparison Electronically Signed On 06-17-2023 06:39:12 EDT by Thong Francois CV Thong Vázquez D O - 06/17/2023 IMPRESSION: Atrial fibrillation Probable left ventricular hypertrophy No previous ECG for comparison Electronically Signed On 06-17-2023 06:39:12 EDT [facility] Radiology Study observation (narrative) [facility] No Panel InformationOrdered By: Thong Francois on 06-17-2023 P Hiram 0 degrees [facility] [employer] Work Phone: UT Interval 0 ms [facility] [employer] Work Phone: QRS Hiram -24 degrees [facility] [employer] Work Phone: QRSD Interval [address] [facility] Work Phone: QT Interval 382 ms [facility] [employer] Work Phone: QTC Interval 442 ms [facility] [employer] Work Phone: T Wave Hiram 31 degrees [facility] [employer] Work Phone: [facility] [employer] Work Phone: Nursing Noteon 06-17-2023 Nursing Note Patient home medication list updated, provider made aware. Normal [facility] PROTHROMBIN TIMEon INR Coag (PPP) [Relative time] 1.4 {INR} High 0.9-1.1 [facility] Comment on above: Result Comment: Reji mmended [...] Infarction Performed By: #### L [id number] #### Esthetician: ALEXANDRA BUSTAMANTE ([id number]) [facility] ([facility]) [address] [place] [address] PT Coag (PPP) [Time] 14.5 s High 9.0-12.0 [facility] Comment on above: Performed By: #### L [id number] #### Esthetician: ALEXANDRA BUSTAMANTE ([phone]) [facility] ([facility]) [address] [place] [address] [place] PT Coag (Bld) [Time]on 06-16 INR Coag (PPP) [Relative time] 1.4 {INR} High 0.9 - 1.1 [facility] Comment on above: Recommended Anticoag ulant [...] Interpretation and review of laboratory results Abnormal [facility] Progress Noteon 06-17-2023 Progress Note Due to OR availability, case cancelled for today. Moved to tomorrow, 06/17. Ok for diet today. NPO @NC. Keep splint C/D/I. Evette Viera MD Orthopaedic Surgery, PGY-5 [id number] Normal [facility] Vital signsOrdered By: Neeta Francois on 06-17-2023 Heart rate 80 /min bpm [employer] Work Phone: XR Chest Single viewon 06-16 No acute cardiopulmonary process identified. Other chronic findings as discussed. 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 [facility] Houston Chau MD - 06/17/2023 Patient [...] Signed Date/Time: 06/17/2023 12:44 AM EDT [facility] Radiology Study observation (narrative) [facility] XR Chest Single viewOrdered By: Houston Chau on 06-17-2023 [facility] Work Phone: Absolute lymphocyte countOrd ered By: Lali Pimentel on 06-16-2023 Lymphocytes Auto (Unsp spec) [#/Vol] 3.86 10*3/uL 0.83-4.51 [facility] Automated lymphocyte count a s percentage of total leukocytesOrdered By: Lali Pimentel on 06-16-2023 Lymphocytes/100 WBC Auto (Unsp spec) 23.0 % 19-41 [facility] BASIC METABOLIC PANELon 05-29 Anion gap [Moles/Vol] 7 mmol/L Normal 3-13 [facility] Comment on above: Performed By: #### L [id number] ####Esthetician: ALEXANDRA BUSTAMANTE ([phone])[facility] ([facility])[address] [place] [address] Calcium [Mass/Vol] 8.6 mg/dL Normal 8.4-10.4 [facility] Comment on above: Performed By: #### L [id number] ####Esthetician: ALEXANDRA BUSTAMANTE ([phone])[facility] ([facility])[address] [place] [address] [place] Chloride [Moles/Vol] 99 mmol/L Normal 98-107 [facility] Comment on above: Performed By: #### L AB15 ####Esthetician: ALEXANDRA BUSTAMANTE ([phone])[facility] ([facility])[address] [place] [address] [place] CO2 [Moles/Vol] 29 mmol/L Normal 22-30 [facility] Comment on above: Performed By: #### L AB15 ####Esthetician: ALEXANDRA BUSTAMANTE ([phone])[facility])[address] [place] [address] Creatinine [Mass/Vol] 0.79 mg/dL Normal 0.52-1.04 [facility] Comment on above: Performed By: #### L [id number] ####Esthetician: ALEXANDRA BUSTAMANTE ([phone])[facility])[address] [place] [address] GLOMERULAR FILTRATION RATE ML/MIN/1.73 SQ M.PREDICTED 72.5 mL/min/1.73m*2 Normal >60.0 [facility] Comment on above: Result Comment: Calc ulation based on the Chronic Kidney Disease Epidemiology Collaboration (CKD-EPI) equation refit without adjustment for race Performed By: #### L [id number] ####Esthetician: ALEXANDRA BUSTAMANTE ([phone])[facility])[address] [place] [address] Glucose [Mass/Vol] 186 mg/dL High 70-100 [facility] Comment on above: Performed By: #### L [id number] ####Esthetician: ALEXANDRA BUSTAMANTE ([phone])[facility])[address] [place] [address] Potassium [Moles/Vol] 4.5 mmol/L Normal 3.5-5.1 [facility] Comment on above: Performed By: #### L [id number] ####Esthetician: ALEXANDRA BUSTAMANTE ([phone])[facility])[address] [place] [address] [place] Sodium [Moles/Vol] 136 mmol/L Normal 135-145 [facility] Comment on above: Performed By: #### L AB15 ####Esthetician: ALEXANDRA BUSTAMANTE ([phone])[facility])[address] [place] [address] Urea nitrogen [Mass/Vol] 26 mg/dL High 7-17 [facility] Comment on above: Performed By: #### L [id number] ####Esthetician: ALEXANDRA BUSTAMANTE ([id number])[facility] ([facility])[address] [place] [address] BLOOD TYPE AND SCREEN GELon 06-16-2023 ABO GROUPING A Normal [facility] Comment on above: Performed By: #### L [id number] ####Esthetician: ALEXANDRA BUSTAMANTE ([phone])[facility] BLOOD [facility] ([facility])[address] [place] [address] RH TYPE IN BLOOD Positive Normal [facility] Comment on above: Performed By: #### L [id number] ####Esthetician: ALEXANDRA BUSTAMANTE ([phone])[facility]OD [facility] ([facility])[address] [place] [address] Basic metabolic 1998 panelon 06-16-2023 Anion gap [Moles/Vol] 7 mmol/L 3 - 13 mmol/L [facility] Calcium [Mass/Vol] 8.6 mg/dL 8.4 - 10. 4 mg/dL [facility] Chloride [Moles/Vol] 99 mmol/L 98 - 10 7 mmol/L [facility] CO2 [Moles/Vol] 29 mmol/L 22 - 30 mmol/L [facility] Creatinine [Mass/Vol] 0.79 mg/dL 0.52 - 1.04 mg/dL [facility] GFR/1.73 sq M.predicted MDRD (S/P/Bld) [Vol rate/Area] 72.5 mL/min/{1.73_m2} - PINF [facility] Comment on above: Calculation based on the Chronic Kidney Disease Epidemiology Collaboration (CKD-EPI) equation refit without adjustment for race Glucose [Mass/Vol] 186 mg/dL High 70 - 100 mg/dL [facility] Interpretation and review of laboratory results Abnormal [facility] Potassium [Moles/Vol] 4.5 mmol/L 3.5 - 5.1 mmol/L [facility] Sodium [Moles/Vol] 136 mmol/L 135 - 145 mmol/L [facility] Urea nitrogen [Mass/Vol] 26 mg/dL High 7 - 17 mg/d L [facility] Basophil percentageOrdered B y: Lali Pimentel on 06-16-2023 Basophils/100 WBC (Bld) 0.4 % 0-[address] [facility] Chloride [Moles/Vol] 104 mmol/L 98-107 [facility] Eosinophils/100 WBC (Bld) 1.3 % 0-5 [facility] Glucose [Mass/Vol] 191 mg/dL 74-106 [facility] Comment on above: Fasting Glucose resu lt greater than or equal to 126 mg/dL suggests DIABETES MELLITUS per A.D.A. criteria. Hemoglobin (Bld) [Mass/Vol] 13.6 g/dL 12.0-15.0 [facility] Monocytes/100 WBC (Bld) 7.0 % 0-[address] [facility] Neutrophils (Bld) [#/Vol] 11.4 10*3/uL 2.0-7.7 [facility] Neutrophils/100 WBC (Bld) 67.8 % 47-70 [facility] Potassium [Moles/Vol] 3.4 mmol/L 3.5-5.1 [facility] Sodium [Moles/Vol] 140 mmol/L 136-145 [facility] WBC (Bld) [#/Vol] 16.8 10*3/uL 4.4-11.0 [facility] Blood type and Crossmatch pa ro (Bld)on 06-16-2023 Blood group antibody screen GEL Ql Negative [facility] CBC W Auto Differential pane l (Bld)on 06-16-2023 Basophils (Bld) [#/Vol] 0.0 10*3/uL 0.0 - 0.2 10*3/uL [facility] Basophils/100 WBC (Bld) 0.2 % 0.0 - 2.0 % [facility] Eosinophils (Bld) [#/Vol] 0.0 10*3/uL 0. 0 - 0.5 10*3/uL [facility] Eosinophils/100 WBC (Bld) 0.0 % 0.0 - 6.0 % [facility] Erythrocyte distribution width (RBC) [Ratio] 13.6 % 11.5 - 15.0 % [facility] Hematocrit (Bld) [Volume fraction] 38.9 % 35.0 - 47.0 % [facility] Hemoglobin (Bld) [Mass/Vol] 12.8 g/dL 11.7 - 16.0 g/dL [facility] Immature granulocytes (Bld) [#/Vol] 0.1 10*3/uL High NINF - 0.1 10*3/uL [facility] Immature granulocytes/100 WBC (Bld) 0.6 % 0.0 - 2.0 % [facility] Interpretation and review of laboratory results Abnormal [facility] Lymphocytes (Bld) [#/Vol] 1.1 10*3/uL 1. 0 - 4.3 10*3/uL [facility] Lymphocytes/100 WBC (Bld) 6.5 % Low 15 .0 - 45.0 % [facility] MCH (RBC) [Entitic mass] 29.1 pg 26. 0 - 34.0 pg [facility] MCHC (RBC) [Mass/Vol] 32.9 % 30.5 - 36.0 % [facility] MCV (RBC) [Entitic vol] 88.4 fL 77.0 - 99.0 fL [facility] Monocytes (Bld) [#/Vol] 0.7 10*3/uL 0.0 - 0.9 10*3/uL [facility] Monocytes/100 WBC (Bld) 4.4 % Low 5.0 - 13.0 % [facility] Neutrophils (Bld) [#/Vol] 14.3 10*3/uL High 1. 8 - 7.5 10*3/uL [facility] Neutrophils/100 WBC (Bld) 88.3 % High 38 .0 - 82.0 % [facility] Nucleated RBC/100 WBC (Bld) [Ratio] 0.0 % [facility] Platelet mean volume (Bld) [Entitic vol] 9.9 fL 9.0 - 12.7 fL [facility] Platelets (Bld) [#/Vol] 357 10*3/uL 140 - 440 10*3/uL [facility] RBC (Bld) [#/Vol] 4.40 10*6/uL 3.80 - 5.2 0 10*6/uL [facility] WBC (Bld) [#/Vol] 16.2 10*3/uL High 3.6 - 10.7 10*3/uL [facility] CBC WITH AUTO DIFFERENTIALon 06-16-2023 Basophils (Bld) [#/Vol] 0.0 10*3/uL Normal 0.0-0.2 [facility] Comment on above: Performed By: #### L [id number] ####Esthetician: ALEXANDRA BUSTAMANTE ([id number])[facility])[address] [place] [address] Basophils/100 WBC (Bld) 0.2 % Normal 0.0-2.0 [facility] Comment on above: Performed By: #### L [id number] ####Esthetician: ALEXANDRA BUSTAMANTE ([phone])[facility])[address] [place] [address] Eosinophils (Bld) [#/Vol] 0.0 10*3/uL Normal 0.0-0.5 [facility] Comment on above: Performed By: #### L [id number] ####Esthetician: ALEXANDRA BUSTAMANTE ([id number])[facility])[address] [place] [address] Eosinophils/100 WBC (Bld) 0.0 % Normal 0.0-6.0 [facility] Comment on above: Performed By: #### L [id number] ####Esthetician: ALEXANDRA BUSTAMANTE ([id number])[facility])[address] [place] [address] Erythrocyte distribution width (RBC) [Ratio] 13.6 % Normal 11.5-15.0 [facility] Comment on above: Performed By: #### L [id number] ####Esthetician: ALEXANDRA BUSTAMANTE ([id number])[facility])[address] [place] [address] Hematocrit (Bld) [Volume fraction] 38.9 % Normal 35.0-47.0 [facility] Comment on above: Performed By: #### L [id number] ####Esthetician: ALEXANDRA BUSTAMANTE ([phone])[facility])[address] [place] [address] Hemoglobin (Bld) [Mass/Vol] 12.8 g/dL Normal 11.7-16.0 [facility] Comment on above: Performed By: #### L [id number] ####Esthetician: ALEXANDRA [id number])[facility] ([facility])[address] [place] [address] IMMATURE GRANS % 0.6 % Normal 0.0-2.0 [facility] Comment on above: Performed By: #### L [id number] ####Esthetician: ALEXANDRA BUSTAMANTE ([phone])[facility])[address] [place] [address] IMMATURE GRANS ABSOLUTE 0.1 10*3/uL High <0.1 [facility] Comment on above: Performed By: #### L [id number] ####Esthetician: ALEXANDRA BUSTAMANTE ([id number])[facility])[address] [place] [address] Lymphocytes (Bld) [#/Vol] 1.1 10*3/uL Normal 1.0-4.3 [facility] Comment on above: Performed By: #### L [id number] ####Esthetician: ALEXANDRA BUSTAMANTE ([phone])[facility])[address] [place] [address] Lymphocytes/100 WBC (Bld) 6.5 % Low 15.0-45.0 [facility] Comment on above: Performed By: #### L [id number] ####Esthetician: ALEXANDRA BUSTAMANTE ([id number])[facility])[address] [place] [address] MCH (RBC) [Entitic mass] 29.1 pg Normal 26.0-34.0 [facility] Comment on above: Performed By: #### L [id number] ####Esthetician: ALEXANDRA BUSTAMANTE ([id number])[facility])[address] [place] [address] MCHC 32.9 % Normal 30.5-36.0 [facility] Comment on above: Performed By: #### L [id number] ####Esthetician: ALEXANDRA BUSTAMANTE ([id number])[facility])[address] [place] [address] MCV (RBC) [Entitic vol] 88.4 fL Normal 77.0-99.0 [facility] Comment on above: Performed By: #### L [id number] ####Esthetician: ALEXANDRA BUSTAMANTE ([phone])[facility])[address] [place] [address] Monocytes (Bld) [#/Vol] 0.7 10*3/uL Normal 0.0-0.9 [facility] Comment on above: Performed By: #### L [id number] ####Esthetician: ALEXANDRA BUSTAMANTE ([phone])[facility] ([facility])[address] [place] [address] Monocytes/100 WBC (Bld) 4.4 % Low 5.0-13.0 [facility] Comment on above: Performed By: #### L [id number] ####Esthetician: ALEXANDRA BUSTAMANTE ([phone])[facility])[address] [place] [address] NEUTROPHILS ABSOLUTE 14.3 10*3/uL High 1.8-7.5 [facility] Comment on above: Performed By: #### L [id number] ####Esthetician: ALEXANDRA BUSTAMANTE ([id number])[facility])[address] [place] [address] Neutrophils/100 WBC (Bld) 88.3 % High 38.0-82.0 [facility] Comment on above: Performed By: #### L [id number] ####Esthetician: ALEXANDRA BUSTAMANTE ([phone])[facility] ([facility])[address] [place] [address] NRBC 0.0 /100 WBCs Normal 0.0-2.0 [facility] Comment on above: Performed By: #### L [id number] ####Esthetician: ALEXANDRA BUSTAMANTE ([phone])[facility])[address] [place] [address] Platelet mean volume (Bld) [Entitic vol] 9.9 fL Normal 9.0-12.7 [facility] Comment on above: Performed By: #### L [id number] ####Esthetician: ALEXANDRA BUSTAMANTE ([phone])[facility] ([facility])[address] [place] [address] Platelets (Bld) [#/Vol] 357 10*3/uL Normal 140-440 [facility] Comment on above: Performed By: #### L [id number] ####Esthetician: ALEXANDRA BUSTAMANTE ([phone])[facility] ([facility])[address] [place] [address] RBC (Bld) [#/Vol] 4.40 10*6/uL Normal 3.80-5.20 [facility] Comment on above: Performed By: #### L [id number] ####Esthetician: ALEXANDRA BUSTAMANTE ([id number])[facility] ([facility])[address] [place] [address] WBC (Bld) [#/Vol] 16.2 10*3/uL High 3.6-10.7 [facility] Comment on above: Performed By: #### L [id number] ####Esthetician: ALEXANDRA BUSTAMANTE ([phone])[facility] ([facility])[address] [place] [address] CT ELBOW RIGHT WO IV CONTRAS Ton [...] condyle of right humerus, initial encounter Normal [facility] CT Elbow - right WO contrast on 06-16-2023 Impression: Extensively comminuted supracondylar humerus fracture. The fracture has multiple foci of articular extension to the lateral and central aspect of the condyle. Report Dictated on Electronically Signed By: Pastor Francisco MD Electronically Signed Date/Time: 06/16/2023 6:13 PM T [facility] Patient Name: EZRA [facility]ONZALEZ : 1935 [id number] Exam Date/Time: 06/16/2023 18:01 Procedure: CT ELBOW [...] process fracture. Joint effusion. Decreased osseous mineralization. [facility] Pastor Francisco [...] Electronically Signed Date/Time: 06/16/2023 6:13 PM EDT [facility] Radiology Study observation (narrative) [facility] chalo Consulton 06-16-2023 Consult Ortho Consult Patient: Ezra Gonzalez Date of : 1935 Acct: [id number] PCP: No primary care provider on file. [...] where she was splinted and transferred to [facility] ED for ortho eval. Patient denies numbness, tingling, or weakness. Denies pain elsewhere and denies head trauma or LOC. 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 Patient has prior ortho surgery history of bilateral TKAs and right shoulder surgery, left carpal tunnel release, all at [facility]. Denies alcohol, tobacco, drug use. Patient ambulation [...] RH, LAB (more content not included)... Normal [facility] Determination of erythrocyte mean corpuscular volume (MCV)Ordered By: Lali Pimentel on 06-16-2023 MCV (RBC) [Entitic vol] 90.3 fL 81-[address] [facility] ED Provider Noteon ED Provider Note Emergency Department Encounter [facility] EMERGENCY DEPT Patient: Ezra Gonzalez : [...] for clarification.) Sae Conde MD Acute Care [facility] Sae Conde MD 06/16/23 [facility] ED Provider Note EMERGENCY DEPARTMENT ENCOUNTER [...] distal humerus fracture. Patient was transferred to [facility] ED for orthopedic consultation. Patient denies [...] 4.4 (*) (more content not included)... Normal [facility] Erythrocyte distribution wid th ratioOrdered By: Lali Pimentel on 06-16-2023 Erythrocyte distribution width (RBC) [Ratio] 13.3 % 11.6-14.6 [facility] Erythrocyte distribution wid th standard deviationOrdered By: Lali Pimentel on 06-16-2023 Erythrocyte distribution width (RBC) [Entitic vol] 43.9 fL 35.1-43.9 [facility] Hematocrit Auto (Bld) [Volum e fraction]Ordered By: Lali Pimentel on 06-16-2023 Hematocrit (Bld) [Volume fraction] 42.6 % 37-47 [facility] Immature granulocytes/100 WB C Auto (Bld)Ordered By: Lali Pimentel on 06-16-2023 Immature granulocytes/100 WBC (Bld) 0.500 % 0.0-0.9 [facility] Comment on above: IG% - Immature Granu locytes (promyelocytes, myelocytes and metamyelocytes) > 1% indicates that a LEFT SHIFT is Present. Laboratory - Blood bankon ABO group Nom (Bld) A [facility] D Ag Ql (RBC) Positive [place] [facility] - Chemistry and C hemistry - challengeOrdered By: Lali Pimentel on 06-16-2023 CO2 [Moles/Vol] 31.0 mmol/L 21.0-32.0 [facility] Urea nitrogen/Creatinine [Mass ratio] 20.9 mg/mg 10-20 [facility] Laboratory - Coagulationon 0 06-16-2023 PT Coag (Bld) [Time] 22.3 s High 9.0 - 12.0 s [facility] Laboratory - CoagulationOrde red By: Lali Pimentel on 06-16-2023 INR Coag (Bld) [Relative time] 2.2 {INR} [facility] PT Coag (PPP) [Time] 24.3 s 11.7-14.9 [facility] Laboratory - Hematology and Cell countsOrdered By: Lali Pimentel on 06-16-2023 MCH (RBC) [Entitic mass] 28.8 pg 27.0-32.0 [facility] MCHC (RBC) [Mass/Vol] 31.9 g/dL 32-36 [facility] Nucleated RBC/100 WBC (Bld) [Ratio] 0 % 0-5 [facility] Platelet mean volume (Bld) [Entitic vol] 9.9 fL 6.2-12.0 [facility] Platelets (Bld) [#/Vol] 414 10*3/uL 150-450 [facility] No Panel Informationon 06-15 [facility] No Panel InformationOrdered By: Lali Pimentel on 06-16-2023 Estimated Creatinine Clearance Calc 35.56 ml/min [facility] Estimated GFR (MDRD) Amer 57 mL/min >60 [facility] Comment on above: GFR Calc Estimated GFR (MDRD) Non-Af Amer 47 mL/min >60 [facility] Comment on above: Non- GFR Calc PROTHROMBIN TIMEon INR Coag (PPP) [Relative time] 2.2 {INR} High 0.9-1.1 [facility] Comment on above: Result Comment: Reji mmended [...] Myocardial Infarction Performed By: #### Akanksha [id number] ####Esthetician: ALEXANDRA BUSTAMANTE ([phone])[facility] ([facility])[address] [place] [address] PT Coag (PPP) [Time] 22.3 s High 9.0-12.0 [facility] Comment on above: Performed By: #### Akanksha [id number] ####Esthetician: ALEXANDRA BUSTAMANTE ([phone])[facility] ([facility])[address] [place] [address] PT Coag (Bld) [Time]on 06-15 INR Coag (PPP) [Relative time] 2.2 {INR} High 0.9 - 1.1 [facility] Comment on above: Recommended Anticoag ulant [...] 06-16-2023 RBC (Bld) [#/Vol] 4.72 10*6/uL 4.2-5.4 [facility] Serum or plasma calcium viktoria urement (mass/volume)Ordered By: Lali Pimentel on 06-16-2023 Calcium [Mass/Vol] 8.8 mg/dL 8.5-10.1 [facility] Serum or plasma creatinine m easurement (mass/volume)Ordered By: Lali Pimentel on 06-16-2023 Creatinine [Mass/Vol] 1.15 mg/dL 0.55-1.02 [facility] Comment on above: The validity of the calculated GFR & GFRAA in patients over 70 years has not been determined. Clinical correlation is essential. Serum or plasma urea nitroge n measurement (mass/volume)Ordered By: Lali Pimentel on 06-16-2023 Urea nitrogen [Mass/Vol] 24 mg/dL 10-15 [facility] Thin prep Papanicolaou smear with manual screeningOrdered By: Lali Pimentel on 06-16-2023 Thin prep Papanicolaou smear with manual screening 5 5- [facility] XR Elbow - right 2 Viewson 0 06-16-2023 Patient Name: EZRA GONZALEZ : 1935 [id number] Exam Date/Time: 06/16/2023 15:20 Procedure: XR ELBOW [...] Electronically Signed Date/Time: 06/16/2023 3:38 PM T [facility] Sae uDdley MD - 06/16/2023 Patient Name: EZRA GONZALEZ : 1935 [id number] Exam Date/Time: 06/16/2023 15:20 Procedure: XR ELBOW [...] Signed Date/Time: 06/16/2023 3:38 PM EDT [facility] Radiology Study observation (narrative) [facility] XR Elbow - right 2 ViewsOrde red By: Sae Dudley on 06-16-2023 [facility] [employer] Work Phone: XR Elbow - right 3 [...] to the medial epicondyle - seen at [facility] cannot see imaging Examination: Right elbow Clinical Indication: Pain Comparison: None [facility] Pastor Francisco MD - 06/16/2023 Patient Name: EZRA GONZALEZ : 1935 [id number] Exam Date/Time: 06/16/2023 14:30 Procedure: XR ELBOW 3+ VIEWS RIGHT Ordering Provider: TENORIO KASSIDY Reason For Exam: comminuted slightly displaced supracondylar fx of distal humerus with extension to the medial epicondyle - seen at [facility] cannot see imaging Examination: Right elbow Clinical [...] Electronically Signed Date/Time: 06/16/2023 3:24 PM EDT [facility] Radiology Study observation (narrative) [facility] [facility] alth XR Elbow - right 3 ViewsOrde red By: Pastor Francisco on 06-16-2023 [facility] Work Phone: XR Shoulder - right [...] Electronically Signed Date/Time: 06/16/2023 3:30 PM EDT [facility] Patient Name: EZRA GONZALEZ [...] joint. Acromioclavicular joint appears grossly intact. [facility] Reji Lemus MD - 06/16/2023 Patient [...] Signed Date/Time: 06/16/2023 3:30 PM EDT [facility] Radiology Study observation (narrative) [facility] Shoulder - right 2 ViewsO rdered By: Reji Lemus on 06-16-2023 [facility] [employer] Work Phone: Capillary blood internationa l normalized ratio (INR)Ordered By: Alexandra Hagen on 05-30-2023 INR Coag ([facility]) [Relative time] 1.7 [facility] Comment on above: Critical Value > 4.0 Whole blood prothrombin time Ordered By: Alexandra Hagen on 05-30-2023 PT Coag (Bld) [Time] 18.0 s 11.7-14.9 [facility] Absolute lymphocyte countOrd ered By: Alexandra Hagen on 05-12-2023 Lymphocytes Auto (Unsp spec) [#/Vol] 1.60 10*3/uL 0.83-4.51 [facility] Automated lymphocyte count a s percentage of total leukocytesOrdered By: Alexandra Hagen on 05-12-2023 Lymphocytes/100 WBC Auto (Unsp spec) 20.2 % 19-41 [facility] Basophil percentageOrdered B y: Alexandra Hagen on 05-12-2023 Basophils/100 WBC (Bld) 0.5 % 0-1 [facility] Chloride [Moles/Vol] 109 mmol/L 98-107 [facility] Eosinophils/100 WBC (Bld) 3.7 % 0-5 [facility] Glucose [Mass/Vol] 206 mg/dL 74-106 [facility] Comment on above: Glucose result great er than or equal to 200 mg/dLsuggests DIABETES MELLITUS per A.D.A. criteria. Hemoglobin (Bld) [Mass/Vol] 13.1 g/dL 12.0-15.0 [facility] Monocytes/100 WBC (Bld) 7.8 % 0-10 [facility] Neutrophils (Bld) [#/Vol] 5.3 10*3/uL 2.0-7.7 [facility] Neutrophils/100 WBC (Bld) 67.5 % 47-70 [facility] Potassium [Moles/Vol] 4.6 mmol/L 3.5-5.1 [facility] Comment on above: Moderate Hemolysis, Result may be falsely increased. Sodium [Moles/Vol] 140 mmol/L 136-145 [facility] WBC (Bld) [#/Vol] 7.9 10*3/uL 4.4-11.0 [facility] Determination of erythrocyte mean corpuscular volume (MCV)Ordered By: Alexandra Hagen on 05-12-2023 MCV (RBC) [Entitic vol] 93.1 fL 81-[address] [facility] Erythrocyte distribution wid th ratioOrdered By: Alexandra Hagen on 05-12-2023 Erythrocyte distribution width (RBC) [Ratio] 13.5 % 11.6-14.6 [facility] Erythrocyte distribution wid th standard deviationOrdered By: Alexandra Hagen on 05-12-2023 Erythrocyte distribution width (RBC) [Entitic vol] 46.0 fL 35.1-43.9 [facility] Hematocrit Auto (Bld) [Volum e fraction]Ordered By: Alexandra Hagen on 05-12-2023 Hematocrit (Bld) [Volume fraction] 41.8 % 37-47 [facility] Immature granulocytes/100 WB C Auto (Bld)Ordered By: Alexandra Hagen on 05-12-2023 Immature granulocytes/100 WBC (Bld) 0.300 % 0.0-0.9 [facility] Comment on above: IG% - Immature Granu locytes (promyelocytes, myelocytes and metamyelocytes) > 1% indicates that a LEFT SHIFT is Present. Laboratory - Chemistry and C hemistry - challengeOrdered By: Alexandra Hagen on 05-12-2023 CO2 [Moles/Vol] 25.0 mmol/L 21.0-32.0 [facility] Urea nitrogen/Creatinine [Mass ratio] 13.7 mg/mg 10-20 [facility] Laboratory - Hematology and Cell countsOrdered By: Alexandra Hagen on 05-12-2023 MCH (RBC) [Entitic mass] 29.2 pg 27.0-32.0 [facility] MCHC (RBC) [Mass/Vol] 31.3 g/dL 32-36 [facility] Nucleated RBC/100 WBC (Bld) [Ratio] 0 % 0-5 [facility] Platelet mean volume (Bld) [Entitic vol] 10.6 fL 6.2-12.0 [facility] Platelets (Bld) [#/Vol] 272 10*3/uL 150-450 [facility] No Panel InformationOrdered By: Alexandra Hagen on 05-12-2023 Estimated GFR (MDRD) Amer 53 mL/min >60 [facility] Comment on above: GFR Calc Estimated GFR (MDRD) Non-Af Amer 43 mL/min >60 [facility] Comment on above: Non- GFR Calc RBC Auto (Bld) [#/Vol]Ordere d By: Alexandra Hagen on 05-12-2023 RBC (Bld) [#/Vol] 4.49 10*6/uL 4.2-5.4 [facility] Serum or plasma calcium viktoria urement (mass/volume)Ordered By: Alexandra Hagen on 05-12-2023 Calcium [Mass/Vol] 8.5 mg/dL 8.5-10.1 [facility] Serum or plasma creatinine m easurement (mass/volume)Ordered By: Alexandra Hagen on 05-12-2023 Creatinine [Mass/Vol] 1.24 mg/dL 0.55-1.02 [facility] Comment on above: The validity of the calculated GFR & GFRAA in patients over 70 years has not been determined. Clinical correlation is essential. Serum or plasma urea nitroge n measurement (mass/volume)Ordered By: Alexandra Hagen on 05-12-2023 Urea nitrogen [Mass/Vol] 17 mg/dL 10-15 [facility] Thin prep Papanicolaou smear with manual screeningOrdered By: Alexandra Hagen on 05-12-2023 Thin prep Papanicolaou smear with manual screening 6 5-15 [facility] Whole blood hemoglobin A1c/t otal hemoglobin ratio (mass fraction)Ordered By: Alexandra Hagen on 05-12-2023 HbA1c (Bld) [Mass fraction] 6.8 % 3.8-5.6 [facility] Comment on above: Normal < 5.7 % Predi abetic 5.7 - 6.4 % Diabetic >or= 6.5 % Please note range changes. Capillary blood internationa l normalized ratio (INR)Ordered By: Alexandra Hagen on 05-01-2023 INR Coag (BldC) [Relative time] 2.0 [facility] Comment on above: Critical Value > 4.0 Whole blood prothrombin time Ordered By: Alexandra Hagen on 05-01-2023 PT Coag (Bld) [Time] 21.0 s 11.7-14.9 [facility] International normalized rat io (INR) calculationOrdered By: Alexandra Hagen on 04-17-2023 INR Coag (PPP) [Relative time] 1.8 {INR} [facility] Laboratory - CoagulationOrde red By: Alexandra Xiao on 04-17-2023 PT Coag (PPP) [Time] 21.0 s 11.7-14.9 [facility] Laboratory - CoagulationOrde red By: Alexandra Hagen on 03-20-2023 INR Coag (Bld) [Relative time] 2.4 {INR} [facility] Comment on above: Critical Value > 4.0 Whole blood prothrombin time Ordered By: Alexandra Hagen on 03-20-2023 PT Coag (Bld) [Time] 25.7 s 11.7-14.9 [facility] Basophil percentageOrdered B y: Alexandra Hagen on 02-21-2023 Bilirubin [Mass/Vol] 0.60 mg/dL 0.20-1.00 [facility] Comment on above: For patients on eltr ombopag therapy, use of Dimension [place] TBIL is not recommended. Chloride [Moles/Vol] 107 mmol/L 98-107 [facility] Cholesterol [Mass/Vol] 127 mg/dL <200 [facility] Comment on above: <200 mg/dL Desirable 200-240 mg/dL Borderline >240 mg/dL High Risk Glucose [Mass/Vol] 134 mg/dL 74-106 [facility] Comment on above: Fasting Glucose resu lt greater than or equal to 126 mg/dL suggests DIABETES MELLITUS per A.D.A. criteria. Potassium [Moles/Vol] 4.2 mmol/L 3.5-5.1 [facility] Protein [Mass/Vol] 6.2 g/dL 6.4-8.2 [facility] Sodium [Moles/Vol] 138 mmol/L 136-145 [facility] Triglyceride [Mass/Vol] 102 mg/dL <199 [facility] Comment on above: The drugs N-Acetylcy steine and Metamizole may falsely depress this assay.Serum Triglycerides Reference Interval Normal <150 mg/dL Borderline high 150 - 199 mg/dL High 200 - 499 mg/dL Very High > or = 500 mg/dL WBC (Bld) [#/Vol] 7.7 10*3/uL 4.4-11.0 [facility] Blood erythrocytes count (nu mber/volume)Ordered By: Alexandra Hagen on 02-21-2023 RBC (Bld) [#/Vol] 4.19 10*6/uL 4.2-5.4 [facility] Blood hemoglobin measurement (mass/volume)Ordered By: Alexandra Hagen on 02-21-2023 Hemoglobin (Bld) [Mass/Vol] 12.5 g/dL 12.0-15.0 [facility] Blood platelet mean volumeOr dered By: Alexandra Hagen on 02-21-2023 Platelet mean volume (Bld) [Entitic vol] 10.8 fL 6.2-12.0 [facility] Determination of erythrocyte mean corpuscular volume (MCV)Ordered By: Alexandra Hagen on 02-21-2023 MCV (RBC) [Entitic vol] 91.2 fL 81-[address] [facility] Hematocrit Auto (Bld) [Volum e fraction]Ordered By: Alexandra Hagen on 02-21-2023 Hematocrit (Bld) [Volume fraction] 38.2 % 37-47 [facility] INR in Blood by Coagulation assayOrdered By: Alexandra Hagen on 02-21-2023 INR Coag (Bld) [Relative time] 2.3 {INR} [facility] Laboratory - Chemistry and C hemistry - challengeOrdered By: Alexandra Hagen on 02-21-2023 ALP [Catalytic activity/Vol] 84 U/L 45-117 [facility] ALT [Catalytic activity/Vol] 11 U/L 13-56 [facility] CO2 [Moles/Vol] 27.0 mmol/L 21.0-32.0 [facility] Globulin (S) [Mass/Vol] 3.3 g/dL 2.2-4.[address] [facility] Urea nitrogen/Creatinine [Mass ratio] 14.0 mg/mg 10-20 [facility] Laboratory - CoagulationOrde red By: Alexandra Hagen on 02-21-2023 PT Coag (PPP) [Time] 25.3 s 11.7-14.9 [facility] Laboratory - Hematology and Cell countsOrdered By: Alexandra Hagen on 02-21-2023 Erythrocyte distribution width (RBC) [Entitic vol] 44.8 fL 35.1-43.9 [facility] Erythrocyte distribution width (RBC) [Ratio] 13.4 % 11.6-14.6 [facility] MCH (RBC) [Entitic mass] 29.8 pg 27.0-32.0 [facility] MCHC Auto (RBC) [Mass/Vol]Or dered By: Alexandra Hagen on 02-21-2023 MCHC (RBC) [Mass/Vol] 32.7 g/dL 32-36 [facility] No Panel InformationOrdered By: lAexandra Hagen on 02-21-2023 Estimated GFR (MDRD) Amer 68 mL/min >60 [facility] Comment on above: GFR Calc Estimated GFR (MDRD) Non-Af Amer 56 mL/min >60 [facility] Comment on above: Non- GFR Calc Platelets bldOrdered By: Alexandra Hagen on 02-21-2023 Platelets (Bld) [#/Vol] 297 10*3/uL 150-450 [facility] Serum or plasma albumin viktoria urement (mass/volume)Ordered By: Alexandra Hagen on 02-21-2023 Albumin [Mass/Vol] 2.9 g/dL 3.2-5.0 [facility] Serum or plasma albumin/glob ulin mass ratioOrdered By: Alexandra Hagen on 02-21-2023 Albumin/Globulin [Mass ratio] 0.9 {ratio} 0.9-2.4 [facility] Serum or plasma calcium viktoria urement (mass/volume)Ordered By: Alexandra Hagen on 02-21-2023 Calcium [Mass/Vol] 8.4 mg/dL 8.5-10.1 [facility] Serum or plasma cholesterol in HDL measurement (mass/volume)Ordered By: Alexandra Hagen on 02-21-2023 Cholesterol in HDL [Mass/Vol] 50 mg/dL >40 [facility] Comment on above: The drugs N-Acetylcy steine and Metamizole may falsely depress this assay. Reference Range HDL <40 mg/dL Low HDL Cholesterol HDL >or= 60 mg/dL High HDL Cholesterol Serum or plasma cholesterol in VLDL measurement (mass/volume)Ordered By: Alexandra Hagen on 02-21-2023 Cholesterol in VLDL [Mass/Vol] 20 mg/dL 5-40 [facility] Serum or plasma creatinine m easurement (mass/volume)Ordered By: Alexandra Hagen on 02-21-2023 Creatinine [Mass/Vol] 1.00 mg/dL 0.55-1.02 [facility] Comment on above: The validity of the calculated GFR & GFRAA in patients over 70 years has not been determined. Clinical correlation is essential. Serum or plasma low density lipoprotein (LDL) cholesterol measurement (mass/volume)Ordered By: Alexandra Hagen on 02-21-2023 Cholesterol in LDL [Mass/Vol] 57 mg/dL 0-130 [facility] Serum or plasma urea nitroge n measurement (mass/volume)Ordered By: Alexandra Hagen on 02-21-2023 Urea nitrogen [Mass/Vol] 14 mg/dL 7-18 [facility] Thin prep Papanicolaou smear with manual screeningOrdered By: Alexandra Hagen on 02-21-2023 Thin prep Papanicolaou smear with manual screening 16 U/L 15-37 [facility] Thin prep Papanicolaou smear with manual screening 4 5-15 [facility] Albumin Elph [Mass/Vol]Order ed By: Anant Juarez on 01-20-2023 Albumin [Mass/Vol] 3.4 g/dL 2.9-4.4 [facility] Basophil percentageOrdered B y: Anant Juarez on 01-20-2023 Basophil percentage Comment . [facility] Comment on above: No monoclonality det ected.Performed at: - [address] [id number] Director: Master Vee PhD, Phone: [phone] Interpretation of serum or p lasma protein pattern by immunofixation (narrative resultOrdered By: Anant Juarez on 01-20-2023 Protein Fractions Immunofixation Manuel [Interp] See comment [facility] Comment on above: Result: Not Observed No Panel InformationOrdered By: Anant Juarez on 01-20-2023 Addendum Document Comment . [facility] Comment on above: Protein electrophore sis scan will follow via computer,mail, or senior sales engineer delivery. Serum [id number] measu rement by electrophoresisOrdered By: Anant Juarez on 01-20-2023 Alpha 1 globulin Elph [Mass/Vol] 0.3 g/dL 0.0-0.4 [facility] Alpha 1 globulin Elph [Mass/Vol] 0.9 g/dL 0.4-1.0 [facility] Serum globulin measurement ( mass/volume)Ordered By: Anant Juarez on 01-20-2023 Globulin (S) [Mass/Vol] 3.0 g/dL 2.2-3.[address] [facility] Serum or plasma IgA measurem ent (mass/volume)Ordered By: Anant Juarez on 01-20-2023 IgA [Mass/Vol] 158 mg/dL 64-422 [facility] Serum or plasma IgG measurem ent (mass/volume)Ordered By: Anant Juaerz on 01-20-2023 IgG [Mass/Vol] 847 mg/dL [id number] [facility] Serum or plasma IgM measurem ent (mass/volume)Ordered By: Anant Juarez on 01-20-2023 IgM [Mass/Vol] 48 mg/dL 26-217 [facility] Serum or plasma beta globuli n measurement by electrophoresis (mass/volume)Ordered By: Anant Juarez on 01-20-2023 Beta globulin Elph [Mass/Vol] 1.0 g/dL 0.7-1.3 [facility] Serum or plasma gamma globul in measurement by electrophoresis (mass/volume)Ordered By: Anant Juarez on 01-20-2023 Gamma globulin Elph [Mass/Vol] 0.7 g/dL 0.4-1.8 [facility] Serum or plasma immunoelectr ophoresis interpretation (nominal result)Ordered By: Anant Juarez on 01-20-2023 Interpretation IEP [Interp] Comment . [facility] Comment on above: No monoclonality det ected. Thin prep Papanicolaou smear with manual screeningOrdered By: Anant Juarez on 01-20-2023 Thin prep Papanicolaou smear with manual screening 1.2 0.7-1.7 [facility] Total protein bloodOrdered B y: Anant Juarez on 01-20-2023 Protein [Mass/Vol] 6.4 g/dL 6.0-8.5 [facility] Laboratory - CoagulationOrde red By: Alexandra Hagen on 01-16-2023 INR Coag (Bld) [Relative time] 2.2 {INR} [facility] Comment on above: Critical Value > 4.0 Whole blood prothrombin time Ordered By: Alexandra Hagen on 01-16-2023 PT Coag (Bld) [Time] 24.2 s 11.7-14.9 [facility] Absolute lymphocyte countOrd ered By: Lynn Horn on 12-28-2022 Lymphocytes Auto (Unsp spec) [#/Vol] 1.57 10*3/uL 0.83-4.51 [facility] Basophil percentageOrdered B y: Lynn Horn on 12-28-2022 Basophils/100 WBC (Bld) 0.6 % 0-1 [facility] Chloride [Moles/Vol] 108 mmol/L 98-107 [facility] Eosinophils/100 WBC (Bld) 3.0 % 0-5 [facility] Glucose [Mass/Vol] 117 mg/dL 74-106 [facility] Comment on above: Fasting Glucose resu lt from 100 to 125 mg/dL suggests IMPAIRED HOMEOSTASIS per A.D.A. criteria. Neutrophils (Bld) [#/Vol] 5.3 10*3/uL 2.0-7.7 [facility] Neutrophils/100 WBC (Bld) 66.8 % 47-70 [facility] Potassium [Moles/Vol] 3.9 mmol/L 3.5-5.1 [facility] Sodium [Moles/Vol] 138 mmol/L 136-145 [facility] WBC (Bld) [#/Vol] 7.9 10*3/uL 4.4-11.0 [facility] Blood erythrocytes count (nu mber/volume)Ordered By: Lynn Horn on 12-28-2022 RBC (Bld) [#/Vol] 4.32 10*6/uL 4.2-5.4 [facility] Blood hemoglobin measurement (mass/volume)Ordered By: Lynn Horn on 12-28-2022 Hemoglobin (Bld) [Mass/Vol] 12.8 g/dL 12.0-15.0 [facility] Blood lymphocytes/100 leukoc ytesOrdered By: Lynn Horn on 12-28-2022 Lymphocytes/100 WBC (Bld) 19.8 % 19-41 [facility] Blood monocytes/100 leukocyt esOrdered By: Lynn Horn on 12-28-2022 Monocytes/100 WBC (Bld) 9.5 % 0-[address] [facility] Blood platelet mean volumeOr dered By: Lynn Horn on 12-28-2022 Platelet mean volume (Bld) [Entitic vol] 10.6 fL 6.2-12.0 [facility] Determination of erythrocyte mean corpuscular volume (MCV)Ordered By: Lynn Horn on 12-28-2022 MCV (RBC) [Entitic vol] 91.0 fL 81-[address] [facility] Hematocrit Auto (Bld) [Volum e fraction]Ordered By: Lynn Horn on 12-28-2022 Hematocrit (Bld) [Volume fraction] 39.3 % 37-47 [facility] INR in Blood by Coagulation assayOrdered By: Lynn Horn on 12-28-2022 INR Coag (Bld) [Relative time] 2.1 {INR} [facility] Laboratory - Chemistry and C hemistry - challengeOrdered By: Lynn Horn on 12-28-2022 CO2 [Moles/Vol] 27.0 mmol/L 21.0-32.0 [facility] Urea nitrogen/Creatinine [Mass ratio] 15.7 mg/mg 10-20 [facility] Laboratory - CoagulationOrde red By: Lynn Hron on 12-28-2022 PT Coag (PPP) [Time] 23.8 s 11.7-14.9 [facility] Laboratory - Hematology and Cell countsOrdered By: Lynn Horn on 12-28-2022 Erythrocyte distribution width (RBC) [Entitic vol] 43.0 fL 35.1-43.9 [facility] Erythrocyte distribution width (RBC) [Ratio] 12.9 % 11.6-14.6 [facility] Immature granulocytes/100 WBC (Bld) 0.300 % 0.0-0.9 [facility] Comment on above: IG% - Immature Granu locytes (promyelocytes, myelocytes and metamyelocytes) > 1% indicates that a LEFT SHIFT is Present. MCH (RBC) [Entitic mass] 29.6 pg 27.0-32.0 [facility] Nucleated RBC/100 WBC (Bld) [Ratio] 0 % 0-5 [facility] MCHC Auto (RBC) [Mass/Vol]Or dered By: Lynn Horn on 12-28-2022 MCHC (RBC) [Mass/Vol] 32.6 g/dL 32-36 [facility] No Panel InformationOrdered By: Lynn Horn on 12-28-2022 Estimated Creatinine Clearance Calc 36.84 ml/min [facility] Estimated GFR (MDRD) Amer 77 mL/min >60 [facility] Comment on above: GFR Calc Estimated GFR (MDRD) Non-Af Amer 64 mL/min >60 [facility] Comment on above: Non- GFR Calc Platelets bldOrdered By: Lois Horn on 12-28-2022 Platelets (Bld) [#/Vol] 272 10*3/uL 150-450 [facility] Serum or plasma calcium viktoria urement (mass/volume)Ordered By: Lynn Horn on 12-28-2022 Calcium [Mass/Vol] 8.3 mg/dL 8.5-10.1 [facility] Serum or plasma creatinine m easurement (mass/volume)Ordered By: Lynn Horn on 12-28-2022 Creatinine [Mass/Vol] 0.89 mg/dL 0.55-1.02 [facility] Comment on above: The validity of the calculated GFR & GFRAA in patients over 70 years has not been determined. Clinical correlation is essential. Serum or plasma urea nitroge n measurement (mass/volume)Ordered By: Lynn Horn on 12-28-2022 Urea nitrogen [Mass/Vol] 14 mg/dL 7-18 [facility] Thin prep Papanicolaou smear with manual screeningOrdered By: Lynn Horn on 12-28-2022 Thin prep Papanicolaou smear with manual screening 3 5-15 [facility] Laboratory - CoagulationOrde red By: Lali Pimentel on 12-27-2022 aPTT Coag (Bld) [Time] 48.2 s 24.1-36.2 [facility] No Panel InformationOrdered By: Lali Pimentel on 12-27-2022 Troponin I High Sensitivity 10 pg/mL 3.0-54.0 [facility] Comment on above: Please Note: New Evon t Units and Gender Specific Reference Ranges. For more information see Policy Stat Procedure [place] High Sensitivity Troponin (TNIH) and attachments. Laboratory - CoagulationOrde red By: Alexandra Hagen on 12-19-2022 INR Coag (Bld) [Relative time] 2.8 {INR} [facility] Comment on above: Critical Value > 4.0 Whole blood prothrombin time Ordered By: Alexandra Hagen on 12-19-2022 PT Coag (Bld) [Time] 29.7 s 11.7-14.9 [facility] Absolute lymphocyte countOrd ered By: Alexandra Hagen on 12-09-2022 Lymphocytes Auto (Unsp spec) [#/Vol] 1.65 10*3/uL 0.83-4.51 [facility] Basophil percentageOrdered B y: Alexandra Hagen on 12-09-2022 Basophils/100 WBC (Bld) 0.4 % 0-1 [facility] Chloride [Moles/Vol] 107 mmol/L 98-107 [facility] Eosinophils/100 WBC (Bld) 3.6 % 0-5 [facility] Glucose [Mass/Vol] 125 mg/dL 74-106 [facility] Comment on above: Fasting Glucose resu lt from 100 to 125 mg/dL suggests IMPAIRED HOMEOSTASIS per A.D.A. criteria. Neutrophils (Bld) [#/Vol] 4.3 10*3/uL 2.0-7.7 [facility] Neutrophils/100 WBC (Bld) 61.6 % 47-70 [facility] Potassium [Moles/Vol] 4.8 mmol/L 3.5-5.1 [facility] Sodium [Moles/Vol] 138 mmol/L 136-145 [facility] WBC (Bld) [#/Vol] 7.0 10*3/uL 4.4-11.0 [facility] Blood erythrocytes count (nu mber/volume)Ordered By: Alexandra Hagen on 12-09-2022 RBC (Bld) [#/Vol] 4.30 10*6/uL 4.2-5.4 [facility] Blood hemoglobin measurement (mass/volume)Ordered By: Alexandra Hagen on 12-09-2022 Hemoglobin (Bld) [Mass/Vol] 13.1 g/dL 12.0-15.0 [facility] Blood lymphocytes/100 leukoc ytesOrdered By: Alexandra Hagen on 12-09-2022 Lymphocytes/100 WBC (Bld) 23.7 % 19-41 [facility] Blood monocytes/100 leukocyt esOrdered By: Alexandra Hagen on 12-09-2022 Monocytes/100 WBC (Bld) 10.4 % 0-[address] [facility] Blood platelet mean volumeOr dered By: Alexandra Hagen on 12-09-2022 Platelet mean volume (Bld) [Entitic vol] 10.7 fL 6.2-12.0 [facility] Determination of erythrocyte mean corpuscular volume (MCV)Ordered By: Alexandra Hagen on 12-09-2022 MCV (RBC) [Entitic vol] 92.3 fL 81-[address] [facility] Hematocrit Auto (Bld) [Volum e fraction]Ordered By: Alexandra Hagen on 12-09-2022 Hematocrit (Bld) [Volume fraction] 39.7 % 37-47 [facility] Laboratory - Chemistry and C hemistry - challengeOrdered By: Alexandra Hagen on 12-09-2022 CO2 [Moles/Vol] 26.0 mmol/L 21.0-32.0 [facility] Urea nitrogen/Creatinine [Mass ratio] 14.4 mg/mg 10-20 [facility] Laboratory - Hematology and Cell countsOrdered By: Alexandra Hagen on 12-09-2022 Erythrocyte distribution width (RBC) [Entitic vol] 44.0 fL 35.1-43.9 [facility] Erythrocyte distribution width (RBC) [Ratio] 13.1 % 11.6-14.6 [facility] Immature granulocytes/100 WBC (Bld) 0.300 % 0.0-0.9 [facility] Comment on above: IG% - Immature Granu locytes (promyelocytes, myelocytes and metamyelocytes) > 1% indicates that a LEFT SHIFT is Present. MCH (RBC) [Entitic mass] 30.5 pg 27.0-32.0 [facility] Nucleated RBC/100 WBC (Bld) [Ratio] 0 % 0-5 [facility] MCHC Auto (RBC) [Mass/Vol]Or dered By: Alexandra Hagen on 12-09-2022 MCHC (RBC) [Mass/Vol] 33.0 g/dL 32-36 [facility] No Panel InformationOrdered By: Alexandra Hagen on 12-09-2022 Estimated GFR (MDRD) Amer 60 mL/min >60 [facility] Comment on above: GFR Calc Estimated GFR (MDRD) Non-Af Amer 49 mL/min >60 [facility] Comment on above: Non- GFR Calc Platelets bldOrdered By: Alexandra Hagen on 12-09-2022 Platelets (Bld) [#/Vol] 293 10*3/uL 150-450 [facility] Serum or plasma calcium viktoria urement (mass/volume)Ordered By: Alexandra Hagen on 12-09-2022 Calcium [Mass/Vol] 8.7 mg/dL 8.5-10.1 [facility] Serum or plasma creatinine m easurement (mass/volume)Ordered By: Alexandra Hagen on 12-09-2022 Creatinine [Mass/Vol] 1.11 mg/dL 0.55-1.02 [facility] Comment on above: The validity of the calculated GFR & GFRAA in patients over 70 years has not been determined. Clinical correlation is essential. Serum or plasma urea nitroge n measurement (mass/volume)Ordered By: Alexandra Hagen on 12-09-2022 Urea nitrogen [Mass/Vol] 16 mg/dL 7-18 [facility] Thin prep Papanicolaou smear with manual screeningOrdered By: Alexandra Hagen on 12-09-2022 Thin prep Papanicolaou smear with manual screening 5 5-15 [facility] Whole blood hemoglobin A1c/t otal hemoglobin ratio (mass fraction)Ordered By: Alexandra Hagen on 12-09-2022 HbA1c (Bld) [Mass fraction] 6.7 % 3.8-5.6 [facility] Comment on above: Normal < 5.7 % Predi abetic 5.7 - 6.4 % Diabetic >or= 6.5 % Please note range changes. Basophil percentageOrdered B y: Alexandra Hagen on 11-20-2022 Bilirubin [Mass/Vol] 0.50 mg/dL 0.20-1.00 [facility] Comment on above: For patients on eltr ombopag therapy, use of Dimension [place] TBIL is not recommended. Chloride [Moles/Vol] 105 mmol/L 98-107 [facility] Cholesterol [Mass/Vol] 167 mg/dL <200 [facility] Comment on above: <200 mg/dL Desirable 200-240 mg/dL Borderline >240 mg/dL High Risk Glucose [Mass/Vol] 153 mg/dL 74-106 [facility] Comment on above: Fasting Glucose resu lt greater than or equal to 126 mg/dL suggests DIABETES MELLITUS per A.D.A. criteria. Potassium [Moles/Vol] 4.2 mmol/L 3.5-5.1 [facility] Protein [Mass/Vol] 6.7 g/dL 6.4-8.2 [facility] Sodium [Moles/Vol] 138 mmol/L 136-145 [facility] Triglyceride [Mass/Vol] 120 mg/dL <199 [facility] Comment on above: The drugs N-Acetylcy steine and Metamizole may falsely depress this assay.Serum Triglycerides Reference Interval Normal <150 mg/dL Borderline high 150 - 199 mg/dL High 200 - 499 mg/dL Very High > or = 500 mg/dL WBC (Bld) [#/Vol] 7.4 10*3/uL 4.4-11.0 [facility] Blood erythrocytes count (nu mber/volume)Ordered By: Alexandra Hagen on 11-20-2022 RBC (Bld) [#/Vol] 4.37 10*6/uL 4.2-5.4 [facility] Blood hemoglobin measurement (mass/volume)Ordered By: Alexandra Hagen on 11-20-2022 Hemoglobin (Bld) [Mass/Vol] 13.1 g/dL 12.0-15.0 [facility] Blood platelet mean volumeOr dered By: Alexandra Hagen on 11-20-2022 Platelet mean volume (Bld) [Entitic vol] 10.8 fL 6.2-12.0 [facility] Determination of erythrocyte mean corpuscular volume (MCV)Ordered By: Alexandra Hagen on 11-20-2022 MCV (RBC) [Entitic vol] 91.5 fL 81-[address] [facility] Hematocrit Auto (Bld) [Volum e fraction]Ordered By: Alexandra Hagen on 11-20-2022 Hematocrit (Bld) [Volume fraction] 40.0 % 37-47 [facility] INR in Blood by Coagulation assayOrdered By: Alexandra Hagen on 11-20-2022 INR Coag (Bld) [Relative time] 2.0 {INR} [facility] Laboratory - Chemistry and C hemistry - challengeOrdered By: Alexandra Hagen on 11-20-2022 ALP [Catalytic activity/Vol] 72 U/L 45-117 [facility] ALT [Catalytic activity/Vol] 13 U/L 13-56 [facility] CO2 [Moles/Vol] 30.0 mmol/L 21.0-32.0 [facility] Globulin (S) [Mass/Vol] 3.6 g/dL 2.2-4.2 [facility] Urea nitrogen/Creatinine [Mass ratio] 12.8 mg/mg 10-20 [facility] Laboratory - CoagulationOrde red By: Alexandra Hagen on 11-20-2022 PT Coag (PPP) [Time] 22.6 s 11.7-14.9 [facility] Laboratory - Hematology and Cell countsOrdered By: Alexandra Hagen on 11-20-2022 Erythrocyte distribution width (RBC) [Entitic vol] 43.4 fL 35.1-43.9 [facility] Erythrocyte distribution width (RBC) [Ratio] 12.9 % 11.6-14.6 [facility] MCH (RBC) [Entitic mass] 30.0 pg 27.0-32.0 [facility] MCHC Auto (RBC) [Mass/Vol]Or dered By: Alexandra Hagen on 11-20-2022 MCHC (RBC) [Mass/Vol] 32.8 g/dL 32-36 [facility] No Panel InformationOrdered By: Alexandra Hagen on 11-20-2022 Estimated GFR (MDRD) Amer 61 mL/min >60 [facility] Comment on above: GFR Calc Estimated GFR (MDRD) Non-Af Amer 50 mL/min >60 [facility] Comment on above: Non- GFR Calc Platelets bldOrdered By: Alexandra Hagen on 11-20-2022 Platelets (Bld) [#/Vol] 310 10*3/uL 150-450 [facility] Serum or plasma albumin viktoria urement (mass/volume)Ordered By: Alexandra Hagen on 11-20-2022 Albumin [Mass/Vol] 3.1 g/dL 3.2-5.0 [facility] Serum or plasma albumin/glob ulin mass ratioOrdered By: Alexandra Hagen on 11-20-2022 Albumin/Globulin [Mass ratio] 0.9 {ratio} 0.9-2.4 [facility] Serum or plasma calcium viktoria urement (mass/volume)Ordered By: Alexandra Hagen on 11-20-2022 Calcium [Mass/Vol] 8.6 mg/dL 8.5-10.1 [facility] Serum or plasma cholesterol in HDL measurement (mass/volume)Ordered By: Alexandra Hagen on 11-20-2022 Cholesterol in HDL [Mass/Vol] 55 mg/dL >40 [facility] Comment on above: The drugs N-Acetylcy steine and Metamizole may falsely depress this assay. Reference Range HDL <40 mg/dL Low HDL Cholesterol HDL >or= 60 mg/dL High HDL Cholesterol Serum or plasma cholesterol in VLDL measurement (mass/volume)Ordered By: Alexandra Hagen on 11-20-2022 Cholesterol in VLDL [Mass/Vol] 24 mg/dL 5-40 [facility] Serum or plasma creatinine m easurement (mass/volume)Ordered By: Alexandra Hagen on 11-20-2022 Creatinine [Mass/Vol] 1.09 mg/dL 0.55-1.02 [facility] Comment on above: The validity of the calculated GFR & GFRAA in patients over 70 years has not been determined. Clinical correlation is essential. Serum or plasma low density lipoprotein (LDL) cholesterol measurement (mass/volume)Ordered By: Alexandra Hagen on 11-20-2022 Cholesterol in LDL [Mass/Vol] 88 mg/dL 0-130 [facility] Serum or plasma urea nitroge n measurement (mass/volume)Ordered By: Alexandra Hagen on 11-20-2022 Urea nitrogen [Mass/Vol] 14 mg/dL 7-18 [facility] Thin prep Papanicolaou smear with manual screeningOrdered By: Alexandra Hagen on 11-20-2022 Thin prep Papanicolaou smear with manual screening 15 U/L 15-37 [facility] Thin prep Papanicolaou smear with manual screening 3 5-15 [facility] Absolute lymphocyte countOrd ered By: Mo Corea on 11-18-2022 Lymphocytes Auto (Unsp spec) [#/Vol] 1.95 10*3/uL 0.83-4.51 [facility] Basophil percentageOrdered B y: Mo Corea on 11-18-2022 Basophil percentage 0-5 SEEN /hpf 0-5 [facility] Basophils/100 WBC (Bld) 0.4 % 0-1 [facility] Bilirubin [Mass/Vol] 0.40 mg/dL 0.20-1.00 [facility] Comment on above: For patients on eltr ombopag therapy, use of Dimension [place] TBIL is not recommended. Chloride [Moles/Vol] 108 mmol/L 98-107 [facility] Eosinophils/100 WBC (Bld) 3.4 % 0-5 [facility] Glucose [Mass/Vol] 126 mg/dL 74-106 [facility] Comment on above: Fasting Glucose resu lt greater than or equal to 126 mg/dL suggests DIABETES MELLITUS per A.D.A. criteria. Neutrophils (Bld) [#/Vol] 4.4 10*3/uL 2.0-7.7 [facility] Neutrophils/100 WBC (Bld) 59.9 % 47-70 [facility] Potassium [Moles/Vol] 3.9 mmol/L 3.5-5.1 [facility] Protein [Mass/Vol] 6.9 g/dL 6.4-8.2 [facility] Sodium [Moles/Vol] 140 mmol/L 136-145 [facility] WBC (Bld) [#/Vol] 7.3 10*3/uL 4.4-11.0 [facility] Bilirubin Test strip Ql (U)O rdered By: Mo Corea on 11-18-2022 Bilirubin Ql (U) Negative Negative [facility] Blood erythrocytes count (nu mber/volume)Ordered By: Mo Corea on 11-18-2022 RBC (Bld) [#/Vol] 4.63 10*6/uL 4.2-5.4 [facility] Blood hemoglobin measurement (mass/volume)Ordered By: Mo Corea on 11-18-2022 Hemoglobin (Bld) [Mass/Vol] 13.9 g/dL 12.0-15.0 [facility] Blood lymphocytes/100 leukoc ytesOrdered By: Mo Corea on 11-18-2022 Lymphocytes/100 WBC (Bld) 26.8 % 19-41 [facility] Blood monocytes/100 leukocyt esOrdered By: Mo Corea on 11-18-2022 Monocytes/100 WBC (Bld) 9.2 % 0-[address] [facility] Blood platelet mean volumeOr dered By: Mo Corea on 11-18-2022 Platelet mean volume (Bld) [Entitic vol] 10.5 fL 6.2-12.0 [facility] Determination of erythrocyte mean corpuscular volume (MCV)Ordered By: Mo Corea on 11-18-2022 MCV (RBC) [Entitic vol] 92.4 fL 81-[address] [facility] Hematocrit Auto (Bld) [Volum e fraction]Ordered By: Mo Corea on 11-18-2022 Hematocrit (Bld) [Volume fraction] 42.8 % 37-47 [facility] INR in Blood by Coagulation assayOrdered By: Mo Corea on 11-18-2022 INR Coag (Bld) [Relative time] 2.0 {INR} [facility] Ketones Test strip Ql (U)Ord ered By: Mo Corea on 11-18-2022 Ketones Ql (U) Negative Negative [facility] Laboratory - Chemistry and C hemistry - challengeOrdered By: Mo Corea on 11-18-2022 ALP [Catalytic activity/Vol] 76 U/L 45-117 [facility] ALT [Catalytic activity/Vol] 13 U/L 13-56 [facility] CO2 [Moles/Vol] 30.0 mmol/L 21.0-32.0 [facility] Globulin (S) [Mass/Vol] 3.6 g/dL 2.2-4.[address] [facility] Urea nitrogen/Creatinine [Mass ratio] 13.6 mg/mg 10-20 [facility] Laboratory - CoagulationOrde red By: Mo Corea on 11-18-2022 aPTT Coag (Bld) [Time] 48.1 s 24.1-36.2 [facility] PT Coag (PPP) [Time] 22.7 s 11.7-14.9 [facility] Laboratory - Hematology and Cell countsOrdered By: Mo Corea on 11-18-2022 Erythrocyte distribution width (RBC) [Entitic vol] 44.2 fL 35.1-43.9 [facility] Erythrocyte distribution width (RBC) [Ratio] 13.1 % 11.6-14.6 [facility] Immature granulocytes/100 WBC (Bld) 0.300 % 0.0-0.9 [facility] Comment on above: IG% - Immature Granu locytes (promyelocytes, myelocytes and metamyelocytes) > 1% indicates that a LEFT SHIFT is Present. MCH (RBC) [Entitic mass] 30.0 pg 27.0-32.0 [facility] Nucleated RBC/100 WBC (Bld) [Ratio] 0 % 0-5 [facility] MCHC Auto (RBC) [Mass/Vol]Or dered By: Mo Corea on 11-18-2022 MCHC (RBC) [Mass/Vol] 32.5 g/dL 32-36 [facility] Mucus LM Ql (Urine sed)Order ed By: Mo Corea on 11-18-2022 Mucus Ql (Urine sed) 0 SEEN /hpf [facility] Nitrite Test strip Ql (U)Ord ered By: Mo Corea on 11-18-2022 Nitrite Ql (U) Negative Negative [facility] No Panel InformationOrdered By: Mo Corea on 11-18-2022 Estimated Creatinine Clearance Calc 31.83 ml/min [facility] Estimated GFR (MDRD) Amer 65 mL/min >60 [facility] Comment on above: GFR Calc Estimated GFR (MDRD) Non-Af Amer 54 mL/min >60 [facility] Comment on above: Non- GFR Calc Platelets bldOrdered By: Rebecca Corea on 11-18-2022 Platelets (Bld) [#/Vol] 289 10*3/uL 150-450 [facility] Protein Test strip Ql (U)Ord ered By: Mo Corea on 11-18-2022 Protein Ql (U) 15 mg/dl Negative [facility] Serum or plasma albumin viktoria urement (mass/volume)Ordered By: Mo Corea on 11-18-2022 Albumin [Mass/Vol] 3.3 g/dL 3.2-5.0 [facility] Serum or plasma albumin/glob ulin mass ratioOrdered By: Mo Corea on 11-18-2022 Albumin/Globulin [Mass ratio] 0.9 {ratio} 0.9-2.4 [facility] Serum or plasma calcium viktoria urement (mass/volume)Ordered By: Mo Corea on 11-18-2022 Calcium [Mass/Vol] 8.7 mg/dL 8.5-10.1 [facility] Serum or plasma creatinine m easurement (mass/volume)Ordered By: Mo Corea on 11-18-2022 Creatinine [Mass/Vol] 1.03 mg/dL 0.55-1.02 [facility] Comment on above: The validity of the calculated GFR & GFRAA in patients over 70 years has not been determined. Clinical correlation is essential. Serum or plasma urea nitroge n measurement (mass/volume)Ordered By: Mo Corea on 11-18-2022 Urea nitrogen [Mass/Vol] 14 mg/dL 7-18 [facility] Squamous epithelial cells de tection in urine sediment by light microscopyOrdered By: Mo Corea on 11-18-2022 Epithelial cells.squamous LM Ql (Urine sed) 0-5 SEEN /hpf 5-10 [facility] Thin prep Papanicolaou smear with manual screeningOrdered By: Mo Corea on 11-18-2022 Thin prep Papanicolaou smear with manual screening 15 U/L 15-37 [facility] Thin prep Papanicolaou smear with manual screening 2 5-15 [facility] Urine blood detectionOrdered By: Mo Corea on 11-18-2022 RBC Ql (U) Negative Negative [facility] RBC Ql (U) 0 SEEN /hpf 0-5 [facility] Urine clarityOrdered By: Rebecca Corea on 11-18-2022 Clarity (U) Sl. Cloudy Clear [facility] Urine color determinationOrd ered By: Mo Corea on 11-18-2022 Color (U) Yellow Yellow [facility] Urine glucose detectionOrder ed By: Mo Corea on 11-18-2022 Glucose Ql (U) Normal mg/dl Normal [facility] Urine leukocyte esterase det ection by dipstickOrdered By: Mo Corea on 11-18-2022 Leukocyte esterase Test strip Ql (U) 25 /ul Negative [facility] Urine pHOrdered By: Mo amado on 11-18-2022 pH (U) 7.0 [pH] 5.0 - 8.0 [facility] Urine sediment bacteria coun t by microscopy (number/high power field)Ordered By: Mo Corea on 11-18-2022 Bacteria LM.HPF (Urine sed) [#/Area] 0 /[HPF] None Seen [facility] Urine specific gravity measu rementOrdered By: Mo Corea on 11-18-2022 Specific gravity (U) [Rel density] 1.010 1.002-1.030 [facility] Urobilinogen Auto test strip Ql (U)Ordered By: Mo Corea on 11-18-2022 Urobilinogen Ql (U) Normal mg/dl Normal [facility] Absolute lymphocyte countOrd ered By: Sae Carballo on 11-15-2022 Lymphocytes Auto (Unsp spec) [#/Vol] 2.03 10*3/uL 0.83-4.51 [facility] Basophil percentageOrdered B y: Sae Carballo on 11-15-2022 Basophils/100 WBC (Bld) 0.5 % 0-[address] [facility] Chloride [Moles/Vol] 107 mmol/L 98-107 [facility] Cholesterol [Mass/Vol] 164 mg/dL <200 [facility] Comment on above: <200 mg/dL Desirable 200-240 mg/dL Borderline >240 mg/dL High Risk Eosinophils/100 WBC (Bld) 3.5 % 0-5 [facility] Glucose [Mass/Vol] 124 mg/dL 74-106 [facility] Comment on above: Fasting Glucose resu lt from 100 to 125 mg/dL suggests IMPAIRED HOMEOSTASIS per A.D.A. criteria. Neutrophils (Bld) [#/Vol] 4.7 10*3/uL 2.0-7.7 [facility] Neutrophils/100 WBC (Bld) 60.3 % 47-70 [facility] Potassium [Moles/Vol] 4.1 mmol/L 3.5-5.1 [facility] Sodium [Moles/Vol] 139 mmol/L 136-145 [facility] Triglyceride [Mass/Vol] 133 mg/dL <[address] [facility] Comment on above: The drugs N-Acetylcy steine and Metamizole may falsely depress this assay.Serum Triglycerides Reference Interval Normal <150 mg/dL Borderline high 150 - 199 mg/dL High 200 - 499 mg/dL Very High > or = 500 mg/dL WBC (Bld) [#/Vol] 7.8 10*3/uL 4.4-11.0 [facility] Blood erythrocytes count (nu mber/volume)Ordered By: Sae Carballo on 11-15-2022 RBC (Bld) [#/Vol] 4.32 10*6/uL 4.2-5.4 [facility] Blood hemoglobin measurement (mass/volume)Ordered By: Sae Carballo on 11-15-2022 Hemoglobin (Bld) [Mass/Vol] 12.9 g/dL 12.0-15.0 [facility] Blood lymphocytes/100 leukoc ytesOrdered By: Sae Carballo on 11-15-2022 Lymphocytes/100 WBC (Bld) 26.2 % 19-41 [facility] Blood monocytes/100 leukocyt esOrdered By: Sae Carballo on 11-15-2022 Monocytes/100 WBC (Bld) 9.4 % 0-10 [facility] Blood platelet mean volumeOr dered By: Sae Carballo on 11-15-2022 Platelet mean volume (Bld) [Entitic vol] 10.6 fL 6.2-12.0 [facility] Determination of erythrocyte mean corpuscular volume (MCV)Ordered By: Sae Carballo on 11-15-2022 MCV (RBC) [Entitic vol] 91.7 fL 81-[address] [facility] Hematocrit Auto (Bld) [Volum e fraction]Ordered By: Sae Carballo on 11-15-2022 Hematocrit (Bld) [Volume fraction] 39.6 % 37-47 [facility] INR in Blood by Coagulation assayOrdered By: Sae Carballo on 11-15-2022 INR Coag (Bld) [Relative time] 2.0 {INR} [facility] Laboratory - Chemistry and C hemistry - challengeOrdered By: Sae Carballo on 11-15-2022 CO2 [Moles/Vol] 25.0 mmol/L 21.0-32.0 [facility] Urea nitrogen/Creatinine [Mass ratio] 15.8 mg/mg 10-20 [facility] Laboratory - CoagulationOrde red By: Sae Carballo on 11-15-2022 PT Coag (PPP) [Time] 23.0 s 11.7-14.9 [facility] Laboratory - Hematology and Cell countsOrdered By: Sae Carballo on 11-15-2022 Erythrocyte distribution width (RBC) [Entitic vol] 43.4 fL 35.1-43.9 [facility] Erythrocyte distribution width (RBC) [Ratio] 12.9 % 11.6-14.6 [facility] Immature granulocytes/100 WBC (Bld) 0.100 % 0.0-0.9 [facility] Comment on above: IG% - Immature Granu locytes (promyelocytes, myelocytes and metamyelocytes) > 1% indicates that a LEFT SHIFT is Present. MCH (RBC) [Entitic mass] 29.9 pg 27.0-32.0 [facility] Nucleated RBC/100 WBC (Bld) [Ratio] 0 % 0-5 [facility] MCHC Auto (RBC) [Mass/Vol]Or dered By: Sae Carballo on 11-15-2022 MCHC (RBC) [Mass/Vol] 32.6 g/dL 32-36 [facility] No Panel InformationOrdered By: Sae Carballo on 11-15-2022 Estimated Creatinine Clearance Calc 37.26 ml/min [facility] Estimated GFR (MDRD) Amer 78 mL/min >60 [facility] Comment on above: GFR Calc Estimated GFR (MDRD) Non-Af Amer 64 mL/min >60 [facility] Comment on above: Non- GFR Calc Platelets bldOrdered By: Ramos Carballo on 11-15-2022 Platelets (Bld) [#/Vol] 278 10*3/uL 150-450 [facility] Serum or plasma calcium viktoria urement (mass/volume)Ordered By: Sae Carballo on 11-15-2022 Calcium [Mass/Vol] 8.5 mg/dL 8.5-10.1 [facility] Serum or plasma cholesterol in HDL measurement (mass/volume)Ordered By: Sae Carballo on 11-15-2022 Cholesterol in HDL [Mass/Vol] 49 mg/dL >40 [facility] Comment on above: The drugs N-Acetylcy steine and Metamizole may falsely depress this assay. Reference Range HDL <40 mg/dL Low HDL Cholesterol HDL >or= 60 mg/dL High HDL Cholesterol Serum or plasma cholesterol in VLDL measurement (mass/volume)Ordered By: Sae Carballo on 11-15-2022 Cholesterol in VLDL [Mass/Vol] 27 mg/dL 5-40 [facility] Serum or plasma creatinine m easurement (mass/volume)Ordered By: Sae Carballo on 11-15-2022 Creatinine [Mass/Vol] 0.88 mg/dL 0.55-1.02 [facility] Comment on above: The validity of the calculated GFR & GFRAA in patients over 70 years has not been determined. Clinical correlation is essential. Serum or plasma low density lipoprotein (LDL) cholesterol measurement (mass/volume)Ordered By: Sae Carballo on 11-15-2022 Cholesterol in LDL [Mass/Vol] 88 mg/dL 0-130 [facility] Serum or plasma urea nitroge n measurement (mass/volume)Ordered By: Sae Carballo on 11-15-2022 Urea nitrogen [Mass/Vol] 14 mg/dL 7-18 [facility] Thin prep Papanicolaou smear with manual screeningOrdered By: Sae Carballo on 11-15-2022 Thin prep Papanicolaou smear with manual screening 7 5-15 [facility] Absolute lymphocyte countOrd ered By: Neri Mitchell on 11-14-2022 Lymphocytes Auto (Unsp spec) [#/Vol] 2.35 10*3/uL 0.83-4.51 [facility] Basophil percentageOrdered B y: Neri Mitchell on 11-14-2022 Basophils/100 WBC (Bld) 0.6 % 0-[address] [facility] Chloride [Moles/Vol] 104 mmol/L 98-107 [facility] Eosinophils/100 WBC (Bld) 2.4 % 0-5 [facility] Glucose [Mass/Vol] 135 mg/dL 74-106 [facility] Comment on above: Fasting Glucose resu lt greater than or equal to 126 mg/dL suggests DIABETES MELLITUS per A.D.A. criteria. Neutrophils (Bld) [#/Vol] 6.0 10*3/uL 2.0-7.7 [facility] Neutrophils/100 WBC (Bld) 64.0 % 47-70 [facility] Potassium [Moles/Vol] 4.0 mmol/L 3.5-5.1 [facility] Sodium [Moles/Vol] 138 mmol/L 136-145 [facility] WBC (Bld) [#/Vol] 9.4 10*3/uL 4.4-11.0 [facility] Blood erythrocytes count (nu mber/volume)Ordered By: Neri Mitchell on 11-14-2022 RBC (Bld) [#/Vol] 4.79 10*6/uL 4.2-5.4 [facility] Blood hemoglobin measurement (mass/volume)Ordered By: Neri Mitchell on 11-14-2022 Hemoglobin (Bld) [Mass/Vol] 14.3 g/dL 12.0-15.0 [facility] Blood lymphocytes/100 leukoc ytesOrdered By: Neri Mitchell on 11-14-2022 Lymphocytes/100 WBC (Bld) 24.9 % 19-41 [facility] Blood monocytes/100 leukocyt esOrdered By: Neri Mitchell on 11-14-2022 Monocytes/100 WBC (Bld) 7.8 % 0-[address] [facility] Blood platelet mean volumeOr dered By: Neri Mitchell on 11-14-2022 Platelet mean volume (Bld) [Entitic vol] 10.6 fL 6.2-12.0 [facility] Determination of erythrocyte mean corpuscular volume (MCV)Ordered By: Neri Mitchell on 11-14-2022 MCV (RBC) [Entitic vol] 93.5 fL 81-[address] [facility] Glucose Glucometer (BldC) [M ass/Vol]Ordered By: Neri Mitchell on 11-14-2022 Glucose [Mass/Vol] 136 mg/dL 74-106 [facility] Comment on above: MANAGEMENT OF PATIEN T CARE PER NURSING PROTOCOL Hematocrit Auto (Bld) [Volum e fraction]Ordered By: Neri Mitchell on 11-14-2022 Hematocrit (Bld) [Volume fraction] 44.8 % 37-47 [facility] INR in Blood by Coagulation assayOrdered By: Neri Mitchell on 11-14-2022 INR Coag (Bld) [Relative time] 1.8 {INR} [facility] Laboratory - Chemistry and C hemistry - challengeOrdered By: Neri Mitchell on 11-14-2022 CO2 [Moles/Vol] 28.0 mmol/L 21.0-32.0 [facility] Urea nitrogen/Creatinine [Mass ratio] 12.3 mg/mg 10-20 [facility] Laboratory - CoagulationOrde red By: Neri Mitchell on 11-14-2022 aPTT Coag (Bld) [Time] 43.3 s 24.1-36.2 [facility] PT Coag (PPP) [Time] 21.3 s 11.7-14.9 [facility] Laboratory - Hematology and Cell countsOrdered By: Neri Mitchell on 11-14-2022 Erythrocyte distribution width (RBC) [Entitic vol] 44.7 fL 35.1-43.9 [facility] Erythrocyte distribution width (RBC) [Ratio] 13.0 % 11.6-14.6 [facility] Immature granulocytes/100 WBC (Bld) 0.300 % 0.0-0.9 [facility] Comment on above: IG% - Immature Granu locytes (promyelocytes, myelocytes and metamyelocytes) > 1% indicates that a LEFT SHIFT is Present. MCH (RBC) [Entitic mass] 29.9 pg 27.0-32.0 [facility] Nucleated RBC/100 WBC (Bld) [Ratio] 0 % 0-5 [facility] MCHC Auto (RBC) [Mass/Vol]Or dered By: Neri Mitchell on 11-14-2022 MCHC (RBC) [Mass/Vol] 31.9 g/dL 32-36 [facility] No Panel InformationOrdered By: Neri Mitchell on 11-14-2022 Estimated Creatinine Clearance Calc 28.76 ml/min [facility] Estimated GFR (MDRD) Amer 58 mL/min >60 [facility] Comment on above: GFR Calc Estimated GFR (MDRD) Non-Af Amer 48 mL/min >60 [facility] Comment on above: Non- GFR Calc Troponin I High Sensitivity 10 pg/mL 3.0-54.0 [facility] Comment on above: Please Note: New Evon t Units and Gender Specific Reference Ranges. For more information see Policy Stat Procedure [place] High Sensitivity Troponin (TNIH) and attachments. Platelets bldOrdered By: Prasad Mitchell on 11-14-2022 Platelets (Bld) [#/Vol] 313 10*3/uL 150-450 [facility] Serum or plasma calcium viktoria urement (mass/volume)Ordered By: Neri Mitchell on 11-14-2022 Calcium [Mass/Vol] 9.0 mg/dL 8.5-10.1 [facility] Serum or plasma creatinine m easurement (mass/volume)Ordered By: Neri Mitchell on 11-14-2022 Creatinine [Mass/Vol] 1.14 mg/dL 0.55-1.02 [facility] Comment on above: The validity of the calculated GFR & GFRAA in patients over 70 years has not been determined. Clinical correlation is essential. Serum or plasma urea nitroge n measurement (mass/volume)Ordered By: Neri Mitchell on 11-14-2022 Urea nitrogen [Mass/Vol] 14 mg/dL 7-18 [facility] Thin prep Papanicolaou smear with manual screeningOrdered By: Neri Mitchell on 11-14-2022 Thin prep Papanicolaou smear with manual screening 6 5-15 [facility] INR in Blood by Coagulation assayOrdered By: Dr. Juarez on 09-18-2022 INR Coag (Bld) [Relative time] 1.8 {INR} [facility] Laboratory - CoagulationOrde red By: Dr. Juarez on 09-18-2022 PT Coag (PPP) [Time] 20.9 s 11.7-14.9 [facility] No Panel InformationOrdered By: Anant Juarez on 09-18-2022 Free Lambda Light Chains, Quant 15.7 mg/L 5.7-26.3 [facility] Whole Blood Vitamin B1 Level 111.8 nmol/L 66.5-200.0 [facility] Comment on above: Performed at: [facility] [address] [id number] Director: Master Vee PhD, Phone: [phone] at: [facility] [id number] Director: Brandon Wells MD, Phone: [phone] Serum immunoglobulin kappa l ight chains/immunoglobulin lambda light chains mass ratioOrdered By: Anant Juarez on 09-18-2022 Immunoglobulin light chains.kappa/Immunoglobul in light chains.lambda (S) [Mass ratio] 1.74 0.26-1.65 [facility] Serum or plasma folate measu rement (mass/volume)Ordered By: Dr. Juarez on 09-18-2022 Folate [Mass/Vol] 51.90 ng/mL 3.1-55.4 [facility] Comment on above: Slight Hemolysis, Re sult may be falsely increased. Serum or plasma immunoglobul in kappa light chains measurement (mass/volume)Ordered By: Anant Juarez on 09-18-2022 Immunoglobulin light chains.kappa [Mass/Vol] 27.3 mg/L 3.3-19.4 [facility] Culture, urineOrdered By: Slim Doran on 09-17-2022 Bacteria identified Cx Nom (U) Streptococcus agalactiae (B) [facility] INR in Blood by Coagulation assayOrdered By: Dr. Doran on 09-13-2022 INR Coag (Bld) [Relative time] 1.5 {INR} [facility] Laboratory - CoagulationOrde red By: Dr. Doran on 09-13-2022 PT Coag (PPP) [Time] 18.1 s 11.7-14.9 [facility] Absolute lymphocyte countOrd ered By: Dr. Barcenas on 09-08-2022 Lymphocytes Auto (Unsp spec) [#/Vol] 2.60 10*3/uL 0.83-4.51 [facility] Basophil percentageOrdered B y: Dr. Barcenas on 09-08-2022 Basophil percentage 0 SEEN /hpf 0-5 [facility] Basophils/100 WBC (Bld) 0.4 % 0-[address] [facility] Bilirubin [Mass/Vol] 0.30 mg/dL 0.20-1.00 [facility] Comment on above: For patients on eltr ombopag therapy, use of Dimension [place] TBIL is not recommended. Chloride [Moles/Vol] 103 mmol/L 98-107 [facility] Eosinophils/100 WBC (Bld) 2.3 % 0-5 [facility] Glucose [Mass/Vol] 78 mg/dL 74-106 [facility] Neutrophils (Bld) [#/Vol] 5.2 10*3/uL 2.0-7.7 [facility] Neutrophils/100 WBC (Bld) 57.4 % 47-70 [facility] Potassium [Moles/Vol] 3.8 mmol/L 3.5-5.1 [facility] Protein [Mass/Vol] 6.9 g/dL 6.4-8.2 [facility] Sodium [Moles/Vol] 139 mmol/L 136-145 [facility] WBC (Bld) [#/Vol] 9.1 10*3/uL 4.4-11.0 [facility] Bilirubin Test strip Ql (U)O rdered By: Dr. Barcenas on 09-08-2022 Bilirubin Ql (U) Negative Negative [facility] Blood erythrocytes count (nu mber/volume)Ordered By: Dr. Barcenas on 09-08-2022 RBC (Bld) [#/Vol] 4.48 10*6/uL 4.2-5.4 [facility] Blood hemoglobin measurement (mass/volume)Ordered By: Dr. Barcenas on 09-08-2022 Hemoglobin (Bld) [Mass/Vol] 13.4 g/dL 12.0-15.0 [facility] Blood lymphocytes/100 leukoc ytesOrdered By: Dr. Barcenas on 09-08-2022 Lymphocytes/100 WBC (Bld) 28.5 % 19-41 [facility] Blood monocytes/100 leukocyt esOrdered By: Dr. Barcenas on 09-08-2022 Monocytes/100 WBC (Bld) 11.1 % 0-[address] [facility] Blood platelet mean volumeOr dered By: Dr. Barcenas on 09-08-2022 Platelet mean volume (Bld) [Entitic vol] 10.7 fL 6.2-12.0 [facility] Determination of erythrocyte mean corpuscular volume (MCV)Ordered By: Dr. Barcenas on 09-08-2022 MCV (RBC) [Entitic vol] 92.4 fL 81-[address] [facility] Hematocrit Auto (Bld) [Volum e fraction]Ordered By: Dr. Barcenas on 09-08-2022 Hematocrit (Bld) [Volume fraction] 41.4 % 37-47 [facility] INR in Blood by Coagulation assayOrdered By: Dr. Barcenas on 09-08-2022 INR Coag (Bld) [Relative time] 1.0 {INR} [facility] Ketones Test strip Ql (U)Ord ered By: Dr. Barcenas on 09-08-2022 Ketones Ql (U) Negative Negative [facility] Laboratory - Chemistry and C hemistry - challengeOrdered By: Dr. Barcenas on 09-08-2022 ALP [Catalytic activity/Vol] 71 U/L 45-117 [facility] ALT [Catalytic activity/Vol] 9 U/L 13-56 [facility] CO2 [Moles/Vol] 30.0 mmol/L 21.0-32.0 [facility] Globulin (S) [Mass/Vol] 3.7 g/dL 2.2-4.[address] [facility] Urea nitrogen/Creatinine [Mass ratio] 17.1 mg/mg 10-20 [facility] Laboratory - CoagulationOrde red By: Dr. Barcenas on 09-08-2022 PT Coag (PPP) [Time] 13.6 s 11.7-14.9 [facility] Laboratory - Hematology and Cell countsOrdered By: Dr. Barcenas on 09-08-2022 Erythrocyte distribution width (RBC) [Entitic vol] 44.8 fL 35.1-43.9 [facility] Erythrocyte distribution width (RBC) [Ratio] 13.2 % 11.6-14.6 [facility] Immature granulocytes/100 WBC (Bld) 0.300 % 0.0-0.9 [facility] Comment on above: IG% - Immature Granu locytes (promyelocytes, myelocytes and metamyelocytes) > 1% indicates that a LEFT SHIFT is Present. MCH (RBC) [Entitic mass] 29.9 pg 27.0-32.0 [facility] Nucleated RBC/100 WBC (Bld) [Ratio] 0 % 0-5 [facility] MCHC Auto (RBC) [Mass/Vol]Or dered By: Dr. Barcenas on 09-08-2022 MCHC (RBC) [Mass/Vol] 32.4 g/dL 32-36 [facility] Mucus LM Ql (Urine sed)Order ed By: Dr. Barcenas on 09-08-2022 Mucus Ql (Urine sed) 0 SEEN /hpf [facility] Nitrite Test strip Ql (U)Ord ered By: Dr. Barcenas on 09-08-2022 Nitrite Ql (U) Negative Negative [facility] No Panel InformationOrdered By: Dr. Barcenas on 09-08-2022 Estimated Creatinine Clearance Calc 31.23 ml/min [facility] Estimated GFR (MDRD) Amer 64 mL/min >60 [facility] Comment on above: GFR Calc Estimated GFR (MDRD) Non-Af Amer 53 mL/min >60 [facility] Comment on above: Non- GFR Calc Troponin I High Sensitivity 86 pg/mL 3.0-54.0 [facility] Comment on above: Please Note: New Evon t Units and Gender Specific Reference Ranges. For more information see Policy Stat Procedure [place] High Sensitivity Troponin (TNIH) and attachments. Platelets bldOrdered By: Dr. Barcenas on 09-08-2022 Platelets (Bld) [#/Vol] 294 10*3/uL 150-450 [facility] Protein Test strip Ql (U)Ord ered By: Dr. Barcenas on 09-08-2022 Protein Ql (U) Negative Negative [facility] Serum or plasma albumin viktoria urement (mass/volume)Ordered By: Dr. Barcenas on 09-08-2022 Albumin [Mass/Vol] 3.2 g/dL 3.2-5.0 [facility] Serum or plasma albumin/glob ulin mass ratioOrdered By: Dr. Barcenas on 09-08-2022 Albumin/Globulin [Mass ratio] 0.9 {ratio} 0.9-2.4 [facility] Serum or plasma calcium viktoria urement (mass/volume)Ordered By: Dr. Barcenas on 09-08-2022 Calcium [Mass/Vol] 8.8 mg/dL 8.5-10.1 [facility] Serum or plasma creatinine m easurement (mass/volume)Ordered By: Dr. Barcenas on 09-08-2022 Creatinine [Mass/Vol] 1.05 mg/dL 0.55-1.02 [facility] Comment on above: The validity of the calculated GFR & GFRAA in patients over 70 years has not been determined. Clinical correlation is essential. Serum or plasma urea nitroge n measurement (mass/volume)Ordered By: Dr. Barcenas on 09-08-2022 Urea nitrogen [Mass/Vol] 18 mg/dL 7-18 [facility] Squamous epithelial cells de tection in urine sediment by light microscopyOrdered By: Dr. Barcenas on 09-08-2022 Epithelial cells.squamous LM Ql (Urine sed) 0-5 SEEN /hpf 5-10 [facility] Thin prep Papanicolaou smear with manual screeningOrdered By: Dr. Barcenas on 09-08-2022 Thin prep Papanicolaou smear with manual screening 9 U/L 15-37 [facility] Thin prep Papanicolaou smear with manual screening 6 5-15 [facility] Urine blood detectionOrdered By: Dr. Barcenas on 09-08-2022 RBC Ql (U) Negative Negative [facility] RBC Ql (U) 0 SEEN /hpf 0-5 [facility] Urine clarityOrdered By: Dr. Barcenas on 09-08-2022 Clarity (U) Clear Clear [facility] Urine color determinationOrd ered By: Dr. Barcenas on 09-08-2022 Color (U) Yellow Yellow [facility] Urine glucose detectionOrder ed By: Dr. Barcenas on 09-08-2022 Glucose Ql (U) Normal mg/dl Normal [facility] Urine leukocyte esterase det ection by dipstickOrdered By: Dr. Barcenas on 09-08-2022 Leukocyte esterase Test strip Ql (U) Negative Negative [facility] Urine pHOrdered By: Dr. Moody delgado on 09-08-2022 pH (U) 6.5 [pH] 5.0 - 8.0 [facility] Urine sediment bacteria coun t by microscopy (number/high power field)Ordered By: Dr. Barcenas on 09-08-2022 Bacteria LM.HPF (Urine sed) [#/Area] 0 /[HPF] None Seen [facility] Urine specific gravity measu rementOrdered By: Dr. Barcenas on 09-08-2022 Specific gravity (U) [Rel density] 1.010 1.002-1.030 [facility] Urobilinogen Auto test strip Ql (U)Ordered By: Dr. Barcenas on 09-08-2022 Urobilinogen Ql (U) Normal mg/dl Normal [facility] Absolute lymphocyte countOrd ered By: Dr. Doran on 09-05-2022 Lymphocytes Auto (Unsp spec) [#/Vol] 1.27 10*3/uL 0.83-4.51 [facility] Basophil percentageOrdered B y: Dr. Doran on 09-05-2022 Basophils/100 WBC (Bld) 0.4 % 0-[address] [facility] Chloride [Moles/Vol] 106 mmol/L 98-107 [facility] Eosinophils/100 WBC (Bld) 1.0 % 0-5 [facility] Glucose [Mass/Vol] 202 mg/dL 74-106 [facility] Comment on above: Glucose result great er than or equal to 200 mg/dLsuggests DIABETES MELLITUS per A.D.A. criteria. Neutrophils (Bld) [#/Vol] 8.3 10*3/uL 2.0-7.7 [facility] Neutrophils/100 WBC (Bld) 79.7 % 47-70 [facility] Potassium [Moles/Vol] 3.7 mmol/L 3.5-5.1 [facility] Sodium [Moles/Vol] 139 mmol/L 136-145 [facility] WBC (Bld) [#/Vol] 10.4 10*3/uL 4.4-11.0 [facility] Blood erythrocytes count (nu mber/volume)Ordered By: Dr. Doran on 09-05-2022 RBC (Bld) [#/Vol] 4.72 10*6/uL 4.2-5.4 [facility] Blood hemoglobin measurement (mass/volume)Ordered By: Dr. Doran on 09-05-2022 Hemoglobin (Bld) [Mass/Vol] 14.1 g/dL 12.0-15.0 [facility] Blood lymphocytes/100 leukoc ytesOrdered By: Dr. Doran on 09-05-2022 Lymphocytes/100 WBC (Bld) 12.3 % 19-41 [facility] Blood monocytes/100 leukocyt esOrdered By: Dr. Doran on 09-05-2022 Monocytes/100 WBC (Bld) 6.3 % 0-[address] [facility] Blood platelet mean volumeOr dered By: Dr. Doran on 09-05-2022 Platelet mean volume (Bld) [Entitic vol] 11.2 fL 6.2-12.0 [facility] Determination of erythrocyte mean corpuscular volume (MCV)Ordered By: Dr. Doran on 09-05-2022 MCV (RBC) [Entitic vol] 93.9 fL 81-[address] [facility] Hematocrit Auto (Bld) [Volum e fraction]Ordered By: Dr. Doran on 09-05-2022 Hematocrit (Bld) [Volume fraction] 44.3 % 37-47 [facility] INR in Blood by Coagulation assayOrdered By: Dr. Doran on 09-05-2022 INR Coag (Bld) [Relative time] 1.1 {INR} [facility] Laboratory - Chemistry and C hemistry - challengeOrdered By: Dr. Doran on 09-05-2022 CO2 [Moles/Vol] 24.0 mmol/L 21.0-32.0 [facility] Urea nitrogen/Creatinine [Mass ratio] 18.3 mg/mg 10-20 [facility] Laboratory - CoagulationOrde red By: Dr. Doran on 09-05-2022 PT Coag (PPP) [Time] 13.8 s 11.7-14.9 [facility] Laboratory - Hematology and Cell countsOrdered By: Dr. Doran on 09-05-2022 Erythrocyte distribution width (RBC) [Entitic vol] 45.5 fL 35.1-43.9 [facility] Erythrocyte distribution width (RBC) [Ratio] 13.2 % 11.6-14.6 [facility] Immature granulocytes/100 WBC (Bld) 0.300 % 0.0-0.9 [facility] Comment on above: IG% - Immature Granu locytes (promyelocytes, myelocytes and metamyelocytes) > 1% indicates that a LEFT SHIFT is Present. MCH (RBC) [Entitic mass] 29.9 pg 27.0-32.0 [facility] Nucleated RBC/100 WBC (Bld) [Ratio] 0 % 0-5 [facility] MCHC Auto (RBC) [Mass/Vol]Or dered By: Dr. Doran on 09-05-2022 MCHC (RBC) [Mass/Vol] 31.8 g/dL 32-36 [facility] No Panel InformationOrdered By: Dr. Doran on 09-05-2022 Estimated GFR (MDRD) Amer 61 mL/min >60 [facility] Comment on above: GFR Calc Estimated GFR (MDRD) Non-Af Amer 50 mL/min >60 [facility] Comment on above: Non- GFR Calc Thyroid Stimulating Hormone (TSH) 2.84 uIU/mL 0.358-3.74 [facility] Platelets bldOrdered By: Dr. Doran on 09-05-2022 Platelets (Bld) [#/Vol] 311 10*3/uL 150-450 [facility] Serum or plasma calcium viktoria urement (mass/volume)Ordered By: Dr. Doran on 09-05-2022 Calcium [Mass/Vol] 8.8 mg/dL 8.5-10.1 [facility] Serum or plasma creatinine m easurement (mass/volume)Ordered By: Dr. Doran on 09-05-2022 Creatinine [Mass/Vol] 1.09 mg/dL 0.55-1.02 [facility] Comment on above: The validity of the calculated GFR & GFRAA in patients over 70 years has not been determined. Clinical correlation is essential. Serum or plasma urea nitroge n measurement (mass/volume)Ordered By: Dr. Doran on 09-05-2022 Urea nitrogen [Mass/Vol] 20 mg/dL 7-18 [facility] Thin prep Papanicolaou smear with manual screeningOrdered By: Dr. Doran on 09-05-2022 Thin prep Papanicolaou smear with manual screening 9 5-15 [facility] Absolute lymphocyte countOrd ered By: Dr. Doran on 08-08-2022 Lymphocytes Auto (Unsp spec) [#/Vol] 1.97 10*3/uL 0.83-4.51 [facility] Basophil percentageOrdered B y: Dr. Doran on 08-08-2022 Basophils/100 WBC (Bld) 0.5 % 0-1 [facility] Chloride [Moles/Vol] 105 mmol/L 98-107 [facility] Eosinophils/100 WBC (Bld) 3.2 % 0-5 [facility] Glucose [Mass/Vol] 147 mg/dL 74-106 [facility] Comment on above: Fasting Glucose resu lt greater than or equal to 126 mg/dL suggests DIABETES MELLITUS per A.D.A. criteria. Neutrophils (Bld) [#/Vol] 4.6 10*3/uL 2.0-7.7 [facility] Neutrophils/100 WBC (Bld) 60.9 % 47-70 [facility] Potassium [Moles/Vol] 4.9 mmol/L 3.5-5.1 [facility] Sodium [Moles/Vol] 140 mmol/L 136-145 [facility] WBC (Bld) [#/Vol] 7.5 10*3/uL 4.4-11.0 [facility] Blood erythrocytes count (nu mber/volume)Ordered By: Dr. Doran on 08-08-2022 RBC (Bld) [#/Vol] 4.73 10*6/uL 4.2-5.4 [facility] Blood hemoglobin measurement (mass/volume)Ordered By: Dr. Doran on 08-08-2022 Hemoglobin (Bld) [Mass/Vol] 14.0 g/dL 12.0-15.0 [facility] Blood lymphocytes/100 leukoc ytesOrdered By: Dr. Doran on 08-08-2022 Lymphocytes/100 WBC (Bld) 26.2 % 19-41 [facility] Blood monocytes/100 leukocyt esOrdered By: Dr. Doran on 08-08-2022 Monocytes/100 WBC (Bld) 8.8 % 0-[address] [facility] Blood platelet mean volumeOr dered By: Dr. Doran on 08-08-2022 Platelet mean volume (Bld) [Entitic vol] 10.9 fL 6.2-12.0 [facility] Determination of erythrocyte mean corpuscular volume (MCV)Ordered By: Dr. Doran on 08-08-2022 MCV (RBC) [Entitic vol] 94.1 fL 81-[address] [facility] Hematocrit Auto (Bld) [Volum e fraction]Ordered By: Dr. Doran on 08-08-2022 Hematocrit (Bld) [Volume fraction] 44.5 % 37-47 [facility] Laboratory - Chemistry and C hemistry - challengeOrdered By: Dr. Doran on 08-08-2022 CO2 [Moles/Vol] 29.0 mmol/L 21.0-32.0 [facility] Cobalamin (Vitamin B12) [Mass/Vol] 853 pg/mL 211-911 [facility] Urea nitrogen/Creatinine [Mass ratio] 18.3 mg/mg 10-20 [facility] Laboratory - Hematology and Cell countsOrdered By: Dr. Doran on 08-08-2022 Erythrocyte distribution width (RBC) [Entitic vol] 45.5 fL 35.1-43.9 [facility] Erythrocyte distribution width (RBC) [Ratio] 13.2 % 11.6-14.6 [facility] Immature granulocytes/100 WBC (Bld) 0.400 % 0.0-0.9 [facility] Comment on above: IG% - Immature Granu locytes (promyelocytes, myelocytes and metamyelocytes) > 1% indicates that a LEFT SHIFT is Present. MCH (RBC) [Entitic mass] 29.6 pg 27.0-32.0 [facility] Nucleated RBC/100 WBC (Bld) [Ratio] 0 % 0-5 [facility] MCHC Auto (RBC) [Mass/Vol]Or dered By: Dr. Doran on 08-08-2022 MCHC (RBC) [Mass/Vol] 31.5 g/dL 32-36 [facility] No Panel InformationOrdered By: Dr. Doran on 08-08-2022 Estimated GFR (MDRD) Amer 57 mL/min >60 [facility] Comment on above: GFR Calc Estimated GFR (MDRD) Non-Af Amer 47 mL/min >60 [facility] Comment on above: Non- GFR Calc Vitamin D 25-Hydroxy 35.5 ng/mL [facility] Comment on above: Vitamin D 25(OH) Sta tus Range Deficiency <20 ng/mL (50nmol/L) Insufficiency 20 - 30 ng/mL (50 - 75 nmol/L) Sufficiency 30 - 100 ng/mL (75 - 250 nmol/L) Toxicity >100 ng/mL (>250 nmol/L) Platelets bldOrdered By: Dr. Doran on 08-08-2022 Platelets (Bld) [#/Vol] 365 10*3/uL 150-450 [facility] Serum or plasma calcium viktoria urement (mass/volume)Ordered By: Dr. Doran on 08-08-2022 Calcium [Mass/Vol] 9.2 mg/dL 8.5-10.1 [facility] Serum or plasma creatinine m easurement (mass/volume)Ordered By: Dr. Doran on 08-08-2022 Creatinine [Mass/Vol] 1.15 mg/dL 0.55-1.02 [facility] Comment on above: The validity of the calculated GFR & GFRAA in patients over 70 years has not been determined. Clinical correlation is essential. Serum or plasma ferritin rich surement (mass/volume)Ordered By: Dr. Doran on 08-08-2022 Ferritin [Mass/Vol] 83 ng/mL 8-252 [facility] Serum or plasma urea nitroge n measurement (mass/volume)Ordered By: Dr. Doran on 08-08-2022 Urea nitrogen [Mass/Vol] 21 mg/dL 7-18 [facility] Thin prep Papanicolaou smear with manual screeningOrdered By: Dr. Doran on 08-08-2022 Thin prep Papanicolaou smear with manual screening 6 5-15 [facility] Absolute lymphocyte countOrd ered By: Dr. Doran on 06-26-2022 Lymphocytes Auto (Unsp spec) [#/Vol] 2.42 10*3/uL 0.83-4.51 [facility] Basophil percentageOrdered B y: Dr. Doran on 06-26-2022 Basophils/100 WBC (Bld) 0.5 % 0-1 [facility] Bilirubin [Mass/Vol] 0.40 mg/dL 0.20-1.00 [facility] Comment on above: For patients on eltr ombopag therapy, use of Dimension [place] TBIL is not recommended. Chloride [Moles/Vol] 106 mmol/L 98-107 [facility] Cholesterol [Mass/Vol] 163 mg/dL <200 [facility] Comment on above: <200 mg/dL Desirable 200-240 mg/dL Borderline >240 mg/dL High Risk Eosinophils/100 WBC (Bld) 4.2 % 0-5 [facility] Glucose [Mass/Vol] 142 mg/dL 74-106 [facility] Comment on above: Fasting Glucose resu lt greater than or equal to 126 mg/dL suggests DIABETES MELLITUS per A.D.A. criteria. Neutrophils (Bld) [#/Vol] 3.9 10*3/uL 2.0-7.7 [facility] Neutrophils/100 WBC (Bld) 53.1 % 47-70 [facility] Potassium [Moles/Vol] 4.3 mmol/L 3.5-5.1 [facility] Protein [Mass/Vol] 6.9 g/dL 6.4-8.2 [facility] Sodium [Moles/Vol] 139 mmol/L 136-145 [facility] Triglyceride [Mass/Vol] 178 mg/dL <[address] [facility] Comment on above: The drugs N-Acetylcy steine and Metamizole may falsely depress this assay.Serum Triglycerides Reference Interval Normal <150 mg/dL Borderline high 150 - 199 mg/dL High 200 - 499 mg/dL Very High > or = 500 mg/dL WBC (Bld) [#/Vol] 7.4 10*3/uL 4.4-11.0 [facility] Blood erythrocytes count (nu mber/volume)Ordered By: Dr. Doran on 06-26-2022 RBC (Bld) [#/Vol] 4.51 10*6/uL 4.2-5.4 [facility] Blood hemoglobin measurement (mass/volume)Ordered By: Dr. Doran on 06-26-2022 Hemoglobin (Bld) [Mass/Vol] 13.5 g/dL 12.0-15.0 [facility] Blood lymphocytes/100 leukoc ytesOrdered By: Dr. Doran on 06-26-2022 Lymphocytes/100 WBC (Bld) 32.9 % 19-41 [facility] Blood monocytes/100 leukocyt esOrdered By: Dr. Doran on 06-26-2022 Monocytes/100 WBC (Bld) 9.0 % 0-[address] [facility] Blood platelet mean volumeOr dered By: Dr. Doran on 06-26-2022 Platelet mean volume (Bld) [Entitic vol] 10.2 fL 6.2-12.0 [facility] Determination of erythrocyte mean corpuscular volume (MCV)Ordered By: Dr. Doran on 06-26-2022 MCV (RBC) [Entitic vol] 92.5 fL 81-[address] [facility] Hematocrit Auto (Bld) [Volum e fraction]Ordered By: Dr. Doran on 06-26-2022 Hematocrit (Bld) [Volume fraction] 41.7 % 37-47 [facility] Laboratory - Chemistry and C hemistry - challengeOrdered By: Dr. Doran on 06-26-2022 ALP [Catalytic activity/Vol] 69 U/L 45-117 [facility] ALT [Catalytic activity/Vol] 13 U/L 13-56 [facility] CO2 [Moles/Vol] 29.0 mmol/L 21.0-32.0 [facility] Globulin (S) [Mass/Vol] 3.7 g/dL 2.2-4.[address] [facility] Urea nitrogen/Creatinine [Mass ratio] 18.0 mg/mg 10-20 [facility] Laboratory - Hematology and Cell countsOrdered By: Dr. Doran on 06-26-2022 Erythrocyte distribution width (RBC) [Entitic vol] 43.9 fL 35.1-43.9 [facility] Erythrocyte distribution width (RBC) [Ratio] 12.9 % 11.6-14.6 [facility] Immature granulocytes/100 WBC (Bld) 0.300 % 0.0-0.9 [facility] Comment on above: IG% - Immature Granu locytes (promyelocytes, myelocytes and metamyelocytes) > 1% indicates that a LEFT SHIFT is Present. MCH (RBC) [Entitic mass] 29.9 pg 27.0-32.0 [facility] Nucleated RBC/100 WBC (Bld) [Ratio] 0 % 0-5 [facility] MCHC Auto (RBC) [Mass/Vol]Or dered By: Dr. Doran on 06-26-2022 MCHC (RBC) [Mass/Vol] 32.4 g/dL 32-36 [facility] No Panel InformationOrdered By: Dr. Doran on 06-26-2022 Estimated GFR (MDRD) Amer 60 mL/min >60 [facility] Comment on above: GFR Calc Estimated GFR (MDRD) Non-Af Amer 49 mL/min >60 [facility] Comment on above: Non- GFR Calc Platelets bldOrdered By: Dr. Doran on 06-26-2022 Platelets (Bld) [#/Vol] 314 10*3/uL 150-450 [facility] Serum or plasma albumin viktoria urement (mass/volume)Ordered By: Dr. Doran on 06-26-2022 Albumin [Mass/Vol] 3.2 g/dL 3.2-5.0 [facility] Serum or plasma albumin/glob ulin mass ratioOrdered By: Dr. Doran on 06-26-2022 Albumin/Globulin [Mass ratio] 0.9 {ratio} 0.9-2.4 [facility] Serum or plasma calcium viktoria urement (mass/volume)Ordered By: Dr. Doran on 06-26-2022 Calcium [Mass/Vol] 8.8 mg/dL 8.5-10.1 [facility] Serum or plasma cholesterol in HDL measurement (mass/volume)Ordered By: Dr. Doran on 06-26-2022 Cholesterol in HDL [Mass/Vol] 47 mg/dL >40 [facility] Comment on above: The drugs N-Acetylcy steine and Metamizole may falsely depress this assay. Reference Range HDL <40 mg/dL Low HDL Cholesterol HDL >or= 60 mg/dL High HDL Cholesterol Serum or plasma cholesterol in VLDL measurement (mass/volume)Ordered By: Dr. Doran on 06-26-2022 Cholesterol in VLDL [Mass/Vol] 36 mg/dL 5-40 [facility] Serum or plasma creatinine m easurement (mass/volume)Ordered By: Dr. Doran on 06-26-2022 Creatinine [Mass/Vol] 1.11 mg/dL 0.55-1.02 [facility] Comment on above: The validity of the calculated GFR & GFRAA in patients over 70 years has not been determined. Clinical correlation is essential. Serum or plasma low density lipoprotein (LDL) cholesterol measurement (mass/volume)Ordered By: Dr. Doran on 06-26-2022 Cholesterol in LDL [Mass/Vol] 80 mg/dL 0-130 [facility] Serum or plasma urea nitroge n measurement (mass/volume)Ordered By: Dr. Doran on 06-26-2022 Urea nitrogen [Mass/Vol] 20 mg/dL 7-18 [facility] Thin prep Papanicolaou smear with manual screeningOrdered By: Dr. Doran on 06-26-2022 Thin prep Papanicolaou smear with manual screening 15 U/L 15-37 [facility] Thin prep Papanicolaou smear with manual screening 4 5-15 [facility] Absolute lymphocyte countOrd ered By: Reese Shankar on 02-11-2022 Lymphocytes Auto (Unsp spec) [#/Vol] 1.50 10*3/uL 0.83-4.51 [facility] Basophil percentageOrdered B y: Reese Shankar on 02-11-2022 Basophils/100 WBC (Bld) 0.4 % 0-[address] [facility] Chloride [Moles/Vol] 102 mmol/L 98-107 [facility] Eosinophils/100 WBC (Bld) 1.7 % 0-5 [facility] Glucose [Mass/Vol] 153 mg/dL 74-106 [facility] Comment on above: Fasting Glucose resu lt greater than or equal to 126 mg/dL suggests DIABETES MELLITUS per A.D.A. criteria. Neutrophils (Bld) [#/Vol] 10.0 10*3/uL 2.0-7.7 [facility] Neutrophils/100 WBC (Bld) 79.1 % 47-70 [facility] Potassium [Moles/Vol] 3.9 mmol/L 3.5-5.1 [facility] Sodium [Moles/Vol] 138 mmol/L 136-145 [facility] WBC (Bld) [#/Vol] 12.7 10*3/uL 4.4-11.0 [facility] Blood erythrocytes count (nu mber/volume)Ordered By: Reese Shankar on 02-11-2022 RBC (Bld) [#/Vol] 4.24 10*6/uL 4.2-5.4 [facility] Blood hemoglobin measurement (mass/volume)Ordered By: Reese Shankar on 02-11-2022 Hemoglobin (Bld) [Mass/Vol] 12.8 g/dL 12.0-15.0 [facility] Blood lymphocytes/100 leukoc ytesOrdered By: Reese Shankar on 02-11-2022 Lymphocytes/100 WBC (Bld) 11.8 % 19-41 [facility] Blood monocytes/100 leukocyt esOrdered By: Reese Shankar on 02-11-2022 Monocytes/100 WBC (Bld) 6.7 % 0-[address] [facility] Blood platelet mean volumeOr dered By: Reese Shankar on 02-11-2022 Platelet mean volume (Bld) [Entitic vol] 11.0 fL 6.2-12.0 [facility] Determination of erythrocyte mean corpuscular volume (MCV)Ordered By: Reese Shankar on 02-11-2022 MCV (RBC) [Entitic vol] 91.7 fL 81-[address] [facility] Hematocrit Auto (Bld) [Volum e fraction]Ordered By: Reese Shankar on 02-11-2022 Hematocrit (Bld) [Volume fraction] 38.9 % 37-47 [facility] INR in Blood by Coagulation assayOrdered By: Reese Shankar on 02-11-2022 INR Coag (Bld) [Relative time] 2.7 {INR} [facility] Laboratory - Chemistry and C hemistry - challengeOrdered By: Reese Shankar on 02-11-2022 CO2 [Moles/Vol] 26.0 mmol/L 21.0-32.0 [facility] Magnesium [Mass/Vol] 2.2 mg/dL 1.6-2.6 [facility] Urea nitrogen/Creatinine [Mass ratio] 18.5 mg/mg 10-20 [facility] Laboratory - CoagulationOrde red By: Reese Shankar on 02-11-2022 PT Coag (PPP) [Time] 28.0 s 11.7-14.9 [facility] Laboratory - Hematology and Cell countsOrdered By: Reese Shankar on 02-11-2022 Erythrocyte distribution width (RBC) [Entitic vol] 43.5 fL 35.1-43.9 [facility] Erythrocyte distribution width (RBC) [Ratio] 12.9 % 11.6-14.6 [facility] Immature granulocytes/100 WBC (Bld) 0.300 % 0.0-0.9 [facility] Comment on above: IG% - Immature Granu locytes (promyelocytes, myelocytes and metamyelocytes) > 1% indicates that a LEFT SHIFT is Present. MCH (RBC) [Entitic mass] 30.2 pg 27.0-32.0 [facility] Nucleated RBC/100 WBC (Bld) [Ratio] 0 % 0-5 [facility] MCHC Auto (RBC) [Mass/Vol]Or dered By: Reese Shankar on 02-11-2022 MCHC (RBC) [Mass/Vol] 32.9 g/dL 32-36 [facility] No Panel InformationOrdered By: Reese Shankar on 02-11-2022 Estimated Creatinine Clearance Calc 19.31 ml/min [facility] Estimated GFR (MDRD) Amer 36 mL/min >60 [facility] Comment on above: GFR Calc Estimated GFR (MDRD) Non-Af Amer 30 mL/min >60 [facility] Comment on above: Non- GFR Calc Troponin I High Sensitivity 13 pg/mL 3.0-54.0 [facility] Comment on above: Please Note: New Evon t Units and Gender Specific Reference Ranges. For more information see Policy Stat Procedure [place] High Sensitivity Troponin (TNIH) and attachments. Platelets bldOrdered By: Dontae Shankar on 02-11-2022 Platelets (Bld) [#/Vol] 286 10*3/uL 150-450 [facility] Serum or plasma calcium viktoria urement (mass/volume)Ordered By: Reese Shankar on 02-11-2022 Calcium [Mass/Vol] 9.1 mg/dL 8.5-10.1 [facility] Serum or plasma creatinine m easurement (mass/volume)Ordered By: Reese Shankar on 02-11-2022 Creatinine [Mass/Vol] 1.73 mg/dL 0.55-1.02 [facility] Comment on above: The validity of the calculated GFR & GFRAA in patients over 70 years has not been determined. Clinical correlation is essential. Serum or plasma urea nitroge n measurement (mass/volume)Ordered By: Reese Shankar on 02-11-2022 Urea nitrogen [Mass/Vol] 32 mg/dL 7-18 [facility] Thin prep Papanicolaou smear with manual screeningOrdered By: Reese Shankar on 02-11-2022 Thin prep Papanicolaou smear with manual screening 10 5-15 [facility] CNPNon 10-14-2019 CNPN Telephone (AGCARDPOB ) EZRA GONZALEZ ([id number]) 1935 F Date Time Provider Department 10/14/19 [...] artery stent placement- 2006 [Z95*11/14/2015 Atherosclerosis [place] coronary artery of na*11/14/2015 Asymptomatic cholelithiasis [K80.20] [...] Encounter Status:Closed by ELVER ACOSTA on 10/14/19 [facility] Guido 10-12-2019 CNPTOUTREA Patient Outreach (AGC) EZRA GONZALEZ ([id number]) 1935 F Date Time Provider Department 10/12/19 SWATHI CRUZ) [facility] During your visit today, we recorded the following information about you: Swathi Cruz LPN, LEE 10/12/2019 10:48 AM Signed ED Follow Up: Patient discharged from [facility] ED on 10/11/2019 for Fall, rib fracture [...] Visit: Transition Of Care [4074] Cmt: ED [facility] 10/11/2019 (Pt. has new pcp) Reason For [...] artery stent placement- 2006 [Z95*11/14/2015 Atherosclerosis [place] coronary artery of na*11/14/2015 Asymptomatic cholelithiasis [K80.20] [...] Status:Closed by SWATHI CRUZ LPN on 10/12/19 [facility] OBSOLETEon 10-12-2019 OBSOLETE Refill (AG[facility]) EZRA GONZALEZ ([id number]) 1935 F Date Time Provider Department [facility] your visit today, we recorded the following information about you: Anne Marie Hobbs Reg 10/12/2019 7:50 AM Signed Pharmacy faxed requesting the following refill. Pending Prescriptions Disp Refills FUROSEMIDE 20 MG TABLET 90 tablet 0 Sig: TAKE ONE TABLET BY MOUTH EVERY DAY SHAHEEN: Yes Last refill: 01/21/2019 Patient last appointment: 09/22/2019 Patient next appointment: Visit date not found Patient Phone numbers: [phone] (home) Request is for script(s) to be [...] artery stent placement- 2006 [Z95*11/14/2015 Atherosclerosis of [place] coronary artery of na*11/14/2015 Asymptomatic cholelithiasis [K80.20] [...] Status:Closed by LYNN BENEDICT LPN on 11/11/19 [facility] PROGRESSon 10-12-2019 PROGRESS HNO ID: [id number] Author: Swathi Cruz LPN Service: ? Author Type: LICENSED NURSE Type: Progress Notes Filed: 10/12/2019 10:48 AM Note Text: ED Follow Up: Patient discharged from [facility] ED on 10/11/2019 for Fall, rib fracture Outreach # 1, Contact Made. Patient was called at this time. Patient verified by name and . Patient stated she has a new PCP Dr. Sada Doran who she will follow up with. Swathi Cruz LPN 10/12/2019 10:45 AM [facility] CNPMari 10-06-2019 JAROD Telephone (AGINTMAC) EZRA GONZALEZ ([id number]) 1935 F Date Time Provider Department 10/06/19 [...] 12/30/16 +++Patient gets lab draw at [facility] in [place] [phone]+++ PT INR Date Value Ref Range Status [...] understanding. Jp CollinsD Allergies As of Date: 10/06/2019 Noted Allergy [...] (HCC) [I48.91] Order(s):PROTHROMBIN TIME/PT [SQPT] Order #: [id number] Prescriptions as of 10/06/2019 Sig: METOPROLOL SUCCINATE [...] artery stent placement- 2006 [Z95*11/14/2015 Atherosclerosis of [place] coronary artery of na*11/14/2015 Asymptomatic cholelithiasis [K80.20] [...] Encounter Status:Closed by BHAKTI (PHARMACIST)ESTEFANIA on 10/06/19 [facility] Bao 09-22-2019 CNPN Telephone ([facility]) LISAEZRA ([id number]) 1935 F Date Time Provider Department 09/22/19 JO PEREZ [facility] During your visit today, we recorded the following information about you: Maryanne Gomez MA 09/22/2019 10:38 AM Signed Patient is aware that you are going to be leaving the practice. She states she recently moved down to [place] and wants to find a physician closer to her Is there anyone that you recommend Maryanne Gomez MA 09/22/2019 10:37 AM Jo Perez MD 09/22/2019 12:[address] barker at [facility] Alicia Park LPN 09/22/2019 1:21 PM [...] Fully Assessed Reason for Visit: Patient Question [3233] Cmt: [facility] Prescriptions as of 09/22/2019 Sig: METOPROLOL [...] artery stent placement- 2006 [Z95*11/14/2015 Atherosclerosis [place] coronary artery of na*11/14/2015 Asymptomatic cholelithiasis [K80.20] [...] Encounter Status:Closed by ALICIA PARK on 09/22/19 [facility] CNPTOUTREACHon 09-22-2019 [facility] Patient Outreach ([facility]) EZRA GONZALEZ ([id number]) 1935 F Date Time Provider Department 09/22/19 MARYANNE GOMEZ) [facility] During your visit today, we recorded the following information about you: Maryanne Gomez MA 09/22/2019 10:34 AM Signed HIGH RISK CHRONIC DISEASE MONITORING - [facility] Provider Action/FYI: Patient doing well Contact made with patient: Yes Hi my name is Maryanne Gomez MA and I am calling from the [facility] on behalf of your PCP. I'm calling [...] like to speak with a social work crew team member to help give you support [...] artery stent placement- 2006 [Z95*11/14/2015 Atherosclerosis [place] coronary artery of na*11/14/2015 Asymptomatic cholelithiasis [K80.20] [...] Encounter Status:Closed by MARYANNE GOMEZ on 09/22/19 [facility] PROGRESSon 09-22-2019 PROGRESS HNO ID: [id number] Author: Maryanne Gomez Service: ? Author Type: Ingot Weigher Type: Progress Notes Filed: 09/22/2019 10:34 AM Note Text: HIGH RISK CHRONIC DISEASE MONITORING - [facility] Provider Action/FYI: Patient doing well Contact made with patient: Yes Hi my name is Maryanne Gomez MA and I am calling from the [facility] on behalf of your PCP. I'm calling [...] like to speak with a social work crew team member to help give you support [...] Outreach.) Maryanne Gomez MA 09/22/2019 10:33 [facility] ([facility]) LISAEZRA ([id number]) 1935 F Date Time Provider Department 09/21/19 JO PEREZ [facility] During your visit today, we recorded the following information about you: Alicia Park LPN 09/21/2019 10:43 AM Signed HIGH RISK CHRONIC DISEASE MONITORING - [facility] Provider Action/FYI: Contact made with patient: No - Left 1st message - Hi my name is Alicia Park LPN and I am calling from the [facility] on behalf of your PCP, Jo Perez [...] artery stent placement- 2006 [Z95*11/14/2015 Atherosclerosis of [place] coronary artery of na*11/14/2015 Asymptomatic cholelithiasis [K80.20] [...] Encounter Status:Closed by ALICIA PARK on 09/21/19 [facility] PROGRESSon 09-21-2019 PROGRESS HNO ID: [id number] Author: Alicia Bush) Vivian Service: ? Author Type: LICENSED NURSE Type: Progress Notes Filed: 09/21/2019 10:43 AM Note Text: HIGH RISK CHRONIC DISEASE MONITORING - [facility] Provider Action/FYI: Contact made with patient: No - Left 1st message - Hi my name is Alicia Park LPN and I am calling from the [facility] on behalf of your PCP, Jo Perez [...] Track Pt Outreach. End outreach.) [facility] EZRA GONZALEZ ([id number]) 1935 F Date Time Provider Department 09/02/19 [...] Date: 12/30/16 +++Patient gets lab draw at [facility] in [place] [phone]+++ PT INR Date Value Ref Range Status [...] have next INR drawn at [facility] in [place] next month. Order placed. Estefania [...] (HCC) [I48.91] Order(s):PROTHROMBIN TIME/PT [SQPT] Order #: [id number] PROTHROMBIN TIME/PT [SQPT] Order #: [id number] STANDING Prescriptions as of 09/02/2019 Sig: METOPROLOL [...] artery stent placement- 2006 [Z95*11/14/2015 Atherosclerosis [place] coronary artery of na*11/14/2015 Asymptomatic cholelithiasis [K80.20] [...] Encounter Status:Closed by BHAKTI (PHARMACIST)ESTEFANIA on 09/03/19 [facility] CNPTOUTREACHochastity 08-12-2019 [facility] ([facility]) EZRA GONZALEZ ([id number]) 1935 F Date Time Provider Department 08/12/19 MARYANNE GOMEZ) [facility] During your visit today, we recorded the following information about you: Maryanne Gomez MA 08/12/2019 9:39 AM Signed HIGH RISK CHRONIC DISEASE MONITORING - [facility] Provider Action/FYI: Left 2nd message, will add patient to schedule for a month Contact made with patient: No, Left 2nd message - Hi my name is Maryanne Gomez MA and I am calling from the [facility] on behalf of your PCP, Jo Perez [...] artery stent placement- 2006 [Z95*11/14/2015 Atherosclerosis of [place] coronary artery of na*11/14/2015 Asymptomatic cholelithiasis [K80.20] [...] Encounter Status:Closed by MARYANNE GOMEZ on 08/12/19 [facility] PROGRESSon 08-12-2019 PROGRESS HNO ID: [id number] Author: Maryanne Gomez Service: ? Author Type: Ingot Weigher Type: Progress Notes Filed: 08/12/2019 9:39 AM Note Text: HIGH RISK CHRONIC DISEASE MONITORING - [facility] Provider Action/FYI: Left 2nd message, will add patient to schedule for a month Contact made with patient: No, Left 2nd message - Hi my name is Maryanne Gomez MA and I am calling from the [facility] on behalf of your PCP, Jo Perez [...] Maryanne Gomez MA 08/12/2019 9:38 AM [facility] CNPTOUTREACHon 08-11-[facility]) EZRA GONZALEZ ([id number]) 1935 F Date Time Provider Department 08/11/19 MARYANNE GOMEZ) [facility] During your visit today, we recorded the following information about you: Maryanne Gomez MA 08/11/2019 10:02 AM Signed HIGH RISK CHRONIC DISEASE MONITORING - [facility] Provider Action/FYI: Left message, will add to schedule for tomorrow Contact made with patient: No - Left 1st message - Hi my name is Maryanne Gomez MA and I am calling from the [facility] on behalf of your PCP, Jo Perez [...] artery stent placement- 2006 [Z95*11/14/2015 Atherosclerosis of [place] coronary artery of na*11/14/2015 Asymptomatic cholelithiasis [K80.20] [...] Encounter Status:Closed by MARYANNE GOMEZ on 08/11/19 [facility] PROGRESSon 08-11-2019 PROGRESS HNO ID: [id number] Author: Maryanne Gomez Service: ? Author Type: Ingot Weigher Type: Progress Notes Filed: 08/11/2019 10:02 AM Note Text: HIGH RISK CHRONIC DISEASE MONITORING - [facility] Provider Action/FYI: Left message, will add to schedule for tomorrow Contact made with patient: No - Left 1st message - Hi my name is Maryanne Gomez MA and I am calling from the [facility] on behalf of your PCP, Jo Perez [...] ended Maryanne Gomez MA 08/11/2019 10:01 AM [facility] OBSOLETEon 08-05-2019 OBSOLETE Refill (AGCARDPOB) LISAEZRA ([id number]) 1935 F Date Time Provider Department 08/05/19 VALERIOMARISA SolerMICHAEL A AGCARDPOB During your visit today, we [...] artery stent placement- 2006 [Z95*11/14/2015 Atherosclerosis of [place] coronary artery of na*11/14/2015 Asymptomatic cholelithiasis [K80.20] [...] Encounter Status:Closed by LYNETTE OROURKE on 08/05/19 [facility] CNPTOUTREACHon 08-04-2019 [facility] Patient Outreach ([facility]) EZRA GONZALEZ ([id number]) 1935 F Date Time Provider Department 08/04/19 MARYANNE GOMEZ) [facility] During your visit today, we recorded the following information about you: Maryanne Gomez MA 08/04/2019 11:03 AM Signed HIGH RISK CHRONIC DISEASE MONITORING - [facility] Provider Action/FYI: Patient has no questions or concerns at this time Contact made with patient: Yes Hi my name is Maryanne Gomez MA and I am calling from the [facility] on behalf of your PCP. I'm calling [...] like to speak with a social work crew team member to help give you support [...] artery stent placement- 2006 [Z95*11/14/2015 Atherosclerosis of [place] coronary artery of na*11/14/2015 Asymptomatic cholelithiasis [K80.20] [...] Status:Closed by MARYANNE GOMEZ on 08/04/19 [facility] PROGRESSon 08-04-2019 PROGRESS HNO ID: [id number] Author: Maryanne Gomez Service: ? Author Type: Ingot Weigher Type: Progress Notes Filed: 08/04/2019 11:03 AM Note Text: HIGH RISK CHRONIC DISEASE MONITORING - [facility] Provider Action/FYI: Patient has no questions or concerns at this time Contact made with patient: Yes Hi my name is Maryanne Gomez MA and I am calling from the [facility] on behalf of your PCP. I'm calling [...] like to speak with a social work crew team member to help give you support [...] Maryanne Gomez MA 08/04/2019 11:03 AM Normal [facility] OBSOLETEon 08-03-2019 OBSOLETE Refill (AGCARDPOB) LISAEZRA ([id number]) 1935 F Date Time Provider Department 08/03/19 [...] artery stent placement- 2006 [Z95*11/14/2015 Atherosclerosis [place] coronary artery of na*11/14/2015 Asymptomatic cholelithiasis [K80.20] [...] Status:Closed by KATYA WELLS CNP on 08/03/19 [facility] CNPTOUTREACHon 07-28-2019 [facility] EZRA GONZALEZ ([id number]) 1935 F Date Time Provider Department 07/28/19 MARYANNE GOMEZ) [facility] During your visit today, we recorded the following information about you: Maryanne Gomez MA 07/28/2019 3:18 PM Signed HIGH RISK CHRONIC DISEASE MONITORING - [facility] Provider Action/FYI: Patient wants to know [...] MA and I am calling from the [facility] on behalf of your PCP. I'm calling [...] like to speak with a social work crew team member to help give you support [...] Please report her afib episode to her lapeler (you can just route this chart to [...] use of insulin (HCC) [E11.9] Order(s):HGB A1C [ODLHP4J] Order #: [id number] FUTURE LIPID PANEL BASIC [SQLIPB] Order #: [id number] FUTURE COMP METABOLIC PANEL [SQCMP] Order #: [id number] FUTURE ALBUMIN QUANT 24H UR [SQUALBQ] Order #: [id number] FUTURE Prescriptions as of 07/28/2019 Sig: SIMVASTATIN [...] artery stent placement- 2006 [Z95*11/14/2015 Atherosclerosis [place] coronary artery of na*11/14/2015 Asymptomatic cholelithiasis [K80.20] [...] Encounter Status:Closed by JO PEREZ on 07/28/19 [facility] OBSOLETEon 07-28-2019 OBSOLETE Refill (AGCARDHWG) EZRA GONZALEZ ([id number]) 1935 F Date Time Provider Department 07/28/19 [...] artery stent placement- 2006 [Z95*11/14/2015 Atherosclerosis [place] coronary artery of na*11/14/2015 Asymptomatic cholelithiasis [K80.20] [...] Status:Closed by ARCELIA LOCKETT CNP on 07/28/19 [facility] PROGRESSon 07-28-2019 PROGRESS HNO ID: [id number] Author: Maryanne Gomez Service: ? Author Type: Ingot Weigher Type: Progress Notes Filed: 07/28/2019 3:18 PM [...] necessary. Maryanne Gomez MA 07/28/2019 3:05 PM [facility] PROGRESS HNO ID: [id number] Author: Jo Perez Service: ? Author Type: Physician Type: Progress Notes Filed: 07/28/2019 3:18 PM Note Text: Please report her afib episode to her lapeler (you can just route this chart to [...] get labs done prior to her visit [facility] PROGRESS HNO ID: [id number] Author: Maryanne Gomez Service: ? Author Type: Ingot Weigher Type: Progress Notes Filed: 07/28/2019 3:18 PM Note Text: HIGH RISK CHRONIC DISEASE MONITORING - [facility] Provider Action/FYI: Patient wants to know [...] MA and I am calling from the [facility] on behalf of your PCP. I'm calling [...] like to speak with a social work crew team member to help give you support [...] Maryanne Gomez MA 07/28/2019 2:21 PM Normal [facility] OBSOLETEon 07-14-2019 OBSOLETE Refill (AGMPC) EZRA GONZALEZ ([id number]) 1935 F Date Time Provider Department 07/14/19 [facility] your visit today, we recorded [...] Visit date not found Patient Phone numbers: [phone] (home) Request is for script(s) to be [...] artery stent placement- 2006 [Z95*11/14/2015 Atherosclerosis [place] coronary artery of na*11/14/2015 Asymptomatic cholelithiasis [K80.20] [...] Encounter Status:Closed by JO PEREZ on 07/14/19 [facility] OBSOLETE Refill (AGCXAVIPOB) EZRA GONZALEZ ([id number]) 1935 F Date Time Provider Department 07/14/19 RICKEY CHAVARRIAPOLulú During your visit today, we recorded the [...] artery stent placement- 2006 [Z95*11/14/2015 Atherosclerosis of [place] coronary artery of na*11/14/2015 Asymptomatic cholelithiasis [K80.20] [...] Status:Closed by RICKEY CHAVARRIA MD on 07/14/19 [facility] CNPN Tele[facility] ([employer]) EZRA GONZALEZ ([id number]) 1935 F Date Time Provider Department 07/12/19 [facility] AGINTMAC During your visit today, we recorded [...] Date: 12/30/16 +++Patient gets lab draw at [facility] in [place] [phone]+++ PT INR Date Value Ref Range Status [...] (HCC) [I48.91] Order(s):PROTHROMBIN TIME/PT [SQPT] Order #: [id number] Prescriptions as of 07/12/2019 Sig: LISINOPRIL 5 [...] artery stent placement- 2006 [Z95*11/14/2015 Atherosclerosis of [place] coronary artery of na*11/14/2015 Asymptomatic cholelithiasis [K80.20] [...] Encounter Status:Closed by BHAKTI (PHARMACIST)ESTEFANIA on 07/12/19 [facility] OBSOLETEon 07-05-2019 OBSOLETE Refill (AGMPC) EZRA GONZALEZ ([id number]) 1935 F Date Time Provider Department 4/6/20 JO PEREZ During your visit today, we [...] Patient next appointment: 07/28/2019 Patient Phone numbers: [phone] (home) Request is for script(s) to be escript to pharmacy. Robert Diaz CMA [facility] 07/13/2019 11:23 AM Signed Pharmacy called to say Ranitidine was recalled and Pepcid is on backorder. Asked what we want to do as an alternative. Spoke with Dr. Perez and she said Omeprazole 20 mg once a day. Asked the pharmacy to either call the office or the patient once Pepcid is no longer on backorder per Dr. Perez. [facility] 07/13/2019 11:23 AM Allergies As of Date: [...] artery stent placement- 2006 [Z95*11/14/2015 Atherosclerosis of [place] coronary artery of na*11/14/2015 Asymptomatic cholelithiasis [K80.20] [...] Status:Closed by PATITO WILSON CNP on 07/05/19 [facility] OBSOLETEon 07-01-2019 OBSOLETE Refill ([facility]) EZRA GONZALEZ ([id number]) 1935 F Date Time Provider Department 07/01/19 JO PEREZ [facility] During your visit today, we recorded the following information about you: Robert Diaz CMA 07/01/2019 9:20 AM Signed Patient called requesting the following refill. Pending Prescriptions Disp Refills RANITIDINE 150 MG TABLET 90 tablet 0 Sig: Take 1 tablet by mouth once daily. SHAHEEN: No Last refill: 03/18/2019 Patient last appointment: 06/10/2019 Patient next appointment: 07/28/2019 Patient Phone numbers: [phone] (home) Request is for script(s) to be [...] artery stent placement- 2006 [Z95*11/14/2015 Atherosclerosis of [place] coronary artery of na*11/14/2015 Asymptomatic cholelithiasis [K80.20] [...] Encounter Status:Closed by JO PEREZ on 07/01/19 [facility]ao 06-10-2019 [facility] EZRA GONZALEZ ([id number]) 1935 F Date Time Provider Department 06/10/19 OJ PEREZ During your visit today, we recorded [...] artery stent placement- 2006 [Z95*11/14/2015 Atherosclerosis of [place] coronary artery of na*11/14/2015 Asymptomatic cholelithiasis [K80.20] [...] Status:Closed by SWATHI CRUZ LPN on 06/10/19 [facility] 06-07-2019 CNPN Telephone ([employer]) EZRA GONZALEZ ([id number]) 1935 F Date Time Provider Department 06/07/19 [...] Date: 12/30/16 +++Patient gets lab draw at [facility] in [place] [phone]+++ PT INR Date Value Ref Range Status [...] (HCC) [I48.91] Order(s):PROTHROMBIN TIME/PT [SQPT] Order #: [id number] Prescriptions as of 06/07/2019 Sig: COQ-10 ORAL [...] artery stent placement- 2006 [Z95*11/14/2015 Atherosclerosis of [place] coronary artery of na*11/14/2015 Asymptomatic cholelithiasis [K80.20] [...] Encounter Status:Closed by BHAKTI (PHARMACIST)ESTEFANIA on 06/07/19 [facility] 06-04-2019 CNPN Telephone ([employer]) EZRA GONZALEZ ([id number]) 1935 F Date Time Provider Department 06/04/19 [...] artery stent placement- 2006 [Z95*11/14/2015 Atherosclerosis of [place] coronary artery of na*11/14/2015 Asymptomatic cholelithiasis [K80.20] [...] Encounter Status:Closed by BHAKTI (PHARMACIST)ESTEFANIA on 06/04/19 [facility] CNOVon 05-13-2019 CNOV Office Visit (AGHWW1 ) EZRA GONZALEZ ([id number]) 1935 F Date Time Provider Department 05/13/19 4:00 PM CRUZ SANCHEZ AGHWW1 During your visit today, we recorded the following information about you: Respiration Weight Height 18/minute 82.6 kg 1.613 m Cruz Sanchez MD 05/13/2019 5:00 PM Signed HISTORY OF PRESENT ILLNESS: Ezra Gonzalez is an 83-year-old sirao-lujh-losytxkv female who returns for follow-up right shoulder [...] associated with diabetes mellitus (HCC) - 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) 2006 - On anticoagulant therapy - On penitentiary drug therapy - Osteoarthritis - Peripheral venous [...] R Shoulder CARDIOVASCULAR: Peripheral venous insufficiency, h/o VA, HTN, Coronary Arteriosclerosis, A-Fib, Cardiac Ablation MSK: [...] [Z98.890] Order(s):Large Joint Arthro/Inj: R subacromial bursa [HCX118] Order #: [id number] betamethasone acetate-betamethasone sodium phosphate 12 mg injection [...] artery stent placement- 2006 [Z95*11/14/2015 Atherosclerosis of [place] coronary artery of na*11/14/2015 Asymptomatic cholelithiasis [K80.20] [...] Status:Closed by CRUZ SANCHEZ MD on 05/13/19 [facility] PROGRESSon 05-13-2019 PROGRESS HNO ID: [id number] Author: Cruz Sanchez Service: ? 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 Cruz Sanchez MD [facility]OVon 04-27-2019 [facility] GON[facility] ([id number]) 1935 F Date Time Provider Department 04/27/19 [...] coronary artery stent placement- 2006 Atherosclerosis of [place] Coronary Artery of [place] Heart Without Angina Pectoris Asymptomatic Cholelithiasis History [...] Podiatry 05/19/2015 End 05/19/15 Nirmal Bogdan Justo COMBINE MECHANIC 07/07/2017 End 07/07/17 ; Mohan Álvarez Ophthalmology 07/07/2017 End 07/07/17 Rickey Clive Bishop Cardiology 09/30/2018 End 09/30/18 ; End of Live Planning discussed including patients advanced directive wishes: Yes I am willing to follow advanced directives. Mini-Cog Patient asked to remember the following three words: Banana, [place] and Chair Visuospatial/Executiv e Functioning: Clock drawin/2 [...] No history of dysuria, frequency or incontinence SURGICAL LEAD: Negative for abnormal vaginal bleeding, abnormal vaginal [...] with supplements or by diet (goal of 2277-1919 mg/day - Discussed need and benefit for [...] arise. - Discussed diabetic education issues of penitentiary diabetic complications, hypoglycemic symptoms, hyperglycemic symptoms, diet, [...] prepared fairly simply. If you were a czpk-bbb-mevqsmvv eater, focus on the meat more than [...] your kitchen up for success. Always have khu-zvza-ebnbamch foods on hand ready to eat. Remove [...] unspecified type [R19.7] Order(s):ADMIN OF INFLUENZA VACCINE [W4342PSP] Order #: [id number]: 1 INFLUENZA SEASONAL HIGH DOSE AGE 65+ [21716QSQ] Order #: [id number] metFORMIN (GLUCOPHAGE) 500 mg tabletTake 1 tablet by mouth daily with breakfast.Disp: Rfl: HGB A1C [QYNUI2W] Order #: [id number] FUTURE COMP METABOLIC PANEL [SQCMP] Order #: [id number] FUTURE Prescriptions as of 04/27/2019 Sig: COQ-10 [...] artery stent placement- 2006 [Z95*11/14/2015 Atherosclerosis of [place] coronary artery of na*11/14/2015 Asymptomatic cholelithiasis [K80.20] [...] prepared fairly simply. If you were a azyn-cqa-utsortae eater, focus on the meat more than [...] your kitchen up for success. Always have xrz-nqml-shqzfaud foods on hand ready to eat. Remove [...] Encounter Status:Closed by JO PEREZ on 04/27/19 [facility] PROGRESSon 04-27-2019 PROGRESS HNO ID: [id number] Author: Jo Perez Service: ? Author Type: [...] coronary artery stent placement- 2006 Atherosclerosis of [place] Coronary Artery of [place] Heart Without Angina Pectoris Asymptomatic Cholelithiasis History [...] Gonzalez Podiatry 05/19/2015 End 05/19/15 Nirmal Kemp COMBINE MECHANIC 07/07/2017 End 07/07/17 ; Mohan Álvarez Ophthalmology 07/07/2017 End 07/07/17 Rickey Chavarria Cardiology 09/30/2018 End 09/30/18 ; End of Live Planning discussed including patients advanced directive wishes: Yes I am willing to follow advanced directives. Mini-Cog Patient asked to remember the following three words: Banana, [place] and Chair Visuospatial/Executiv e Functioning: Clock drawin/2 [...] No history of dysuria, frequency or incontinence SURGICAL LEAD: Negative for abnormal vaginal bleeding, abnormal vaginal [...] with supplements or by diet (goal of 4108-9225 mg/day - Discussed need and benefit for [...] - Discussed diabetic education issues of superintendent container terminal diabetic complications, hypoglycemic symptoms, hyperglycemic symptoms, [...] patient: - Glaucoma screening - Lipid panel oJ Perez MD [facility] CNOVon 03-18-2019 CNOV Office Visit (AGHWW1 ) EZRA GONZALEZ ([id number]) 1935 F Date Time Provider Department 03/18/19 4:00 PM CRUZ SANCHEZ AGHWW1 During your visit today, we recorded the following information about you: Respiration Weight Height 17/minute 80.7 kg 1.651 m Cruz Sanchez MD 03/18/2019 7:00 PM Signed HISTORY OF PRESENT ILLNESS: Ezra Gonzalez is an 83-year-old ndjyu-hluk-qnaxvfqm female who returns for follow-up right shoulder [...] and strength with continued physical therapy in [place]. She is currently using the yellow to [...] associated with diabetes mellitus (HCC) - 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) 2006 - On anticoagulant therapy - On penitentiary drug therapy - Osteoarthritis - Peripheral venous [...] artery stent placement- 2006 [Z95*11/14/2015 Atherosclerosis of [place] coronary artery of na*11/14/2015 Asymptomatic cholelithiasis [K80.20] [...] Status:Closed by CRUZ SANCHEZ MD on 03/18/19 [facility] PROGRESSon 03-18-2019 PROGRESS HNO ID: [id number] Author: Cruz Sanchez Service: ? Author Type: Physician Type: Progress Notes Filed: 03/18/2019 7:00 PM Note Text: HISTORY OF PRESENT ILLNESS: Ezra Gonzalez is an 83-year-old sotiw-cgqb-ilkyrfkv female who returns for follow-up right shoulder [...] and strength with continued physical therapy in [place]. She is currently using the yellow to [...] associated with diabetes mellitus (HCC) - 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) 2006 - On anticoagulant therapy - On superintendent container terminal drug therapy - Osteoarthritis - Peripheral [...] to follow-up as needed. Cruz Sanchez MD [facility] OBSOLETEon 03-17-2019 OBSOLETE Refill ([facility]) LISAEZRA Alis ([id number]) 1935 F Date Time Provider Department 03/17/19 VIPUL BUCHANAN ([facility] During your visit today, we recorded the following information about you: Anne Marie Hobbs Reg 03/18/2019 7:40 AM Signed Pharmacy faxed requesting the following refill. Pending Prescriptions Disp Refills LISINOPRIL 5 MG TABLET 90 tablet 0 Sig: TAKE ONE TABLET BY MOUTH once DAILY SHAHEEN: Yes Last refill: 10/09/2018 Patient last appointment: 09/30/2018 Patient next appointment: Visit date not found Patient Phone numbers: [phone] (home) Request is for script(s) to be [...] artery stent placement- 2006 [Z95*11/14/2015 Atherosclerosis of [place] coronary artery of na*11/14/2015 Asymptomatic cholelithiasis [K80.20] [...] Encounter Status:Closed by JO PEREZ on 03/18/19 [facility] OBSOLETE Refill ([facility]) EZRA GONZALEZ ([id number]) 1935 F Date Time Provider Department 03/17/19 JO PEREZ [facility] During your visit today, we recorded the following information about you: Anne Marie Britogers Reg 03/18/2019 7:41 AM Signed Pharmacy faxed requesting the following refill. Pending Prescriptions Disp Refills RANITIDINE 150 MG TABLET 90 tablet 0 Sig: TAKE ONE TABLET BY MOUTH EVERY DAY SHAHEEN: Yes Last refill: 12/16/2018 Patient last appointment: 09/30/2018 Patient next appointment: 04/02/2019 Patient Phone numbers: [phone] (home) Request is for script(s) to be [...] artery stent placement- 2006 [Z95*11/14/2015 Atherosclerosis of [place] coronary artery of na*11/14/2015 Asymptomatic cholelithiasis [K80.20] [...] Encounter Status:Closed by [facility] Office Visit (AGHWW1 ) EZRA GONZALEZ ([id number]) 1935 F Date Time Provider Department 02/04/19 1:30 PM CRUZ SANCHEZ HWW1 During your visit today, we recorded the following information about you: Respiration Weight Height 17/minute 80.7 kg 1.676 m Cruz Sanchez MD 02/04/2019 4:40 PM Signed HISTORY OF PRESENT ILLNESS: Ezra Gonzalez was provided orthopedic evaluation regarding right shoulder complaints. Patient is an 83-year-old ddhug-syqf-ptbfjbfe female who is previously known status post [...] associated with diabetes mellitus (HCC) - 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) 2006 - On anticoagulant therapy - On superintendent container terminal drug therapy - Osteoarthritis - Peripheral [...] Dr Sanchez - TOTAL HIP REPLACEMENT Left 2010 - [...] conditions CARDIOVASCULAR: A-Fib, Coronary Arteriosclerosis, HTN, Old VA, Peripheral Venous Inufficiency, MSK: Degenerative Joint Disease, [...] GENERAL 3V OR MORE AP/TRUE AP/OTHER RT [[id number]] Order #: [id number] CONSULT TO PHYSICAL THERAPY (AG) [[id number]] Order #: [id number]: 1 DRAIN/INJECT LARGE JOINT/BURSA [[id number]] Order #: [id number] [] betamethasone acetate-betamethasone sodium phosphate 12 mg [...] stent placement- 2006 [Z95*INVALID FOR* Atherosclerosis of [place] coronary artery of na*INVALID FOR* Asymptomatic cholelithiasis [...] Status:Closed by CRUZ SANCHEZ MD on 02/04/19 [facility] PROGRESSon 02-04-2019 PROGRESS HNO ID: [id number] Author: Cruz Sanchez Service: ? Author Type: Physician Type: Progress Notes Filed: 02/04/2019 4:40 PM Note Text: HISTORY OF PRESENT ILLNESS: Ezra Gonzalez was provided orthopedic evaluation regarding right shoulder complaints. Patient is an 83-year-old flckp-syvv-lgtxdnql female who is previously known status post [...] associated with diabetes mellitus (HCC) - 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) 2006 - On anticoagulant therapy - On penitentiary drug therapy - Osteoarthritis - Peripheral venous [...] conditions CARDIOVASCULAR: A-Fib, Coronary Arteriosclerosis, HTN, Old VA, Peripheral Venous Inufficiency, MSK: Degenerative Joint Disease, [...] biceps tendon and modified open anterior acromioplasty, 1/18/11. PLAN: 1. Tendinitis of right rotator cuff [...] somewhat guarded medical candidate. Cruz Sanchez MD [facility] OBSOLETEon 01-21-2019 OBSOLETE Refill (AGCARDPOB) EZRA GONZALEZ ([id number]) 1935 F Date Time Provider Department 01/21/19 [...] Myalgias Date Reviewed: 11/27/2018 Reviewed by: [facility]onFinesse Torres - Fully Assessed Reason for Visit: [...] stent placement- 2006 [Z95*INVALID FOR* Atherosclerosis of [place] coronary artery of na*INVALID FOR* Asymptomatic cholelithiasis [...] Status:Closed by RICKEY CHAVARRIA MD on 01/21/19 [facility] ([id number]) 1935 F Date Time Provider Department 01/21/19 [...] Patient next appointment: 04/02/2019 Patient Phone numbers: [phone] (home) Request is for script(s) to be [...] Myalgias Date Reviewed: 11/27/2018 Reviewed by: Vika ([facility]) Brian - Fully Assessed Reason for Visit: [...] stent placement- 2006 [Z95*INVALID FOR* Atherosclerosis of [place] coronary artery of na*INVALID FOR* Asymptomatic cholelithiasis [...] Encounter Status:Closed by JO PEREZ on 01/21/19 [facility] CNTHERAPYon 12-14-2018 CNTHERAPY OT/PT/Speech Visit (CTSTWP) EZRA GONZALEZ ([id number]) 1935 F Date Time Provider Department 12/14/18 11:00 AM ANOOP COLLAZO (JAZMYN) [facility] Date Time Provider Department Center 12/14/2018 11:00 AM [id number]-TRPHRRXANOOP COLLAZO*AKSTWP NOLAN LONG Reason for Visit: Difficulty [...] Myalgias Date Reviewed: 11/27/2018 Reviewed by: [facility]ika [facility]) Brian - Fully Assessed Prescriptions as of [...] TO AUDIOLOGY FOR DIAGNOSTIC TESTING [9003] (Order [id number]) Patient's major complaints: Progressively increasing difficulty in [...] --Pure tone audiometry using insert earphones demonstrates rkkc-zs-frnxrjwxpc severe level sensorineural type hearing loss, worse [...] up w/ referring physician. Report routed via Purplu inbox to Dr. Perez on 12/14/2018 -Re-evaluation [...] Audiogram can be also be viewed in [employer]soft SmartForms:Audiology: Audiometry. OAE and tympanometry results can be viewed in [employer] Scanned Documents. RIGHT EAR Hearing Sensitivity: 250-500HZ: WNL; 750-2000Hz:mild; 3000-8000Hz: moderate-severe SNHL Word Recognition Score (order by difficulty 10 word list): Excellent (90%) at slt amplified loudness (fair at conversational loudness) Tympanometry: Type A : Normal ME function. Otoacoustic Emissions results: 750-3000Hz: WNL; 0288-7184: reduced; 8000Hz: absent. LEFT EAR Hearing Sensitivity: 250-500HZ: WNL; 750-3000Hz: moderate; 6000-8000Hz: severe SNHL Word Recognition Score (order by difficulty 10 word list): Excellent (90%) at amplified loudness (poor at conversational loudness) Tympanometry: Type A : Normal ME function. Otoacoustic Emissions results: 750-1000Hz: absent; 3487-1928: reduced; 6000-8000Hz: absent. William Hinson. Rug Washer 12/14/2018 3:30 PM Ezra Gonzalez : 1935 [...] during this visit: Audiometry Letter Text Normal [facility] OBSOLETEon 12-14-2018 OBSOLETE Refill ([facility]) EZRA GONZALEZ ([id number]) 1935 F Date Time Provider Department 12/14/18 JO PEREZ [facility] During your visit today, we recorded the following information about you: Robert Diaz CMA 12/16/2018 1:00 PM Signed Patient called requesting the following refill. Pending Prescriptions Disp Refills RANITIDINE 150 MG TABLET 90 tablet 0 Sig: TAKE ONE TABLET BY MOUTH EVERY DAY SHAHEEN: Yes Last refill: 09/16/2018 Patient last appointment: 10/20/2018 Patient next appointment: 04/02/2019 Patient Phone numbers: [phone] (home) Request is for script(s) to be [...] Myalgias Date Reviewed: 11/27/2018 Reviewed by: Vika ([facility]) Brian - Fully Assessed Reason for Visit: [...] stent placement- 2006 [Z95*INVALID FOR* Atherosclerosis of [place] coronary artery of na*INVALID FOR* Asymptomatic cholelithiasis [...] Encounter Status:Closed by JO PEREZ on 12/16/18 [facility] PROGRESSon 12-14-2018 PROGRESS HNO ID: [id number] Author: Anoop (Jazmyn) JAZMYN Collazo Service: ? Author Type: Rug Washer Type: Progress Notes Filed: 12/14/2018 4:44 PM [...] TO AUDIOLOGY FOR DIAGNOSTIC TESTING [9003] (Order [id number]) Patient's major complaints: Progressively increasing difficulty in [...] --Pure tone audiometry using insert earphones demonstrates nuzv-pi-kyumzhkwsa severe level sensorineural type hearing loss, worse [...] up w/ referring physician. Report routed via Purplu inbox to Dr. Perez on 12/14/2018 -Re-evaluation [...] Audiogram can be also be viewed in daysoft SmartForms:Audiology: Audiometry. OAE and tympanometry results can be viewed in [facility] Scanned Documents. RIGHT EAR Hearing Sensitivity: 250-500HZ: WNL; 750-2000Hz:mild; 3000-8000Hz: moderate-severe SNHL Word Recognition Score (order by difficulty 10 word list): Excellent (90%) at slt amplified loudness (fair at conversational loudness) Tympanometry: Type A : Normal ME function. Otoacoustic Emissions results: 750-3000Hz: WNL; 3499-3331: reduced; 8000Hz: absent. LEFT EAR Hearing Sensitivity: 250-500HZ: WNL; 750-3000Hz: moderate; 6000-8000Hz: severe SNHL Word Recognition Score (order by difficulty 10 word list): Excellent (90%) at amplified loudness (poor at conversational loudness) Tympanometry: Type A : Normal ME function. Otoacoustic Emissions results: 750-1000Hz: absent; 4799-3324: reduced; 6000-8000Hz: absent. William Hinson. Rug Washer 12/14/2018 3:30 PM Ezra Gonzalez : 1935 Page 3 of 3 GARCÍA Abbreviation Definition Degree of hearing sensitivity dB range WNL within normal limits WNL 0 - 20 SNHL sensorineural hearing loss Mild 20-40 CHL conductive hearing loss Moderate 40-55 MHL mixed hearing loss Moderately-Severe 55-70 ME middle ear Severe 70-90 OAE Distortion Product Otoacoustic Emissions Profound 90 + TM tympanic membrane Normal [facility] CNOVon 11-27-2018 CNOV Office Visit (AGCARDHWW) EZRA GONZALEZ ([id number]) 1935 F Date Time Provider Department 11/27/18 11:00 AM RICKEY CHAVARRIA AGCARDHWW During your visit today, we recorded the following information about you: Pulse Respiration Blood pressure Weight 66/minute 18/minute 124/70 80.7 kg Height 1.575 m Vika Torres CMA 11/27/2018 11:00 AM Signed Patient has no cardiac complaints today. Vika Chavarria MD 11/27/2018 11:24 AM Signed PRIMARY CARE PHYSICIAN: Jo Perez MD [id number] [facility] [address] [place] [address] HISTORY OF PRESENT ILLNESS: Ms. Gonzalez is [...] again. 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 Ezra [...] of the time was spent in direct, kdbg-fx-nmll, contact with the patient for management and counseling. 1. Essential hypertension - ICD9: 401.9, ICD10: I10 (primary diagnosis) 2. Obesity, Class I, BMI 30-34.9 - ICD9: 278.00, ICD10: E66.9 3. Mixed hyperlipidemia - ICD9: 272.2, ICD10: E78.2 4. Paroxysmal atrial fibrillation (HCC) - ICD9: 427.31, ICD10: I48.0 5. Chronic anticoagulation - ICD9: V58.61, ICD10: Z79.01 Rickey Chavarria M.D. [facility] Referring Provider: SELF [[id number]] Allergies As of Date: 11/27/2018 Noted Allergy Reaction CODEINE 03/20/2015 16 - Unknown CRESTOR (ROSUVASTATIN) 03/20/2015 14 - Other: See Comments Comments: Myalgias DEMEROL (MEPERIDINE) 03/20/2015 8 - GI Upset LATEX 03/20/2015 2 - Rash LIPITOR (ATORVASTATIN) 03/20/2015 14 - Other: See Comments Comments: Myalgias Date Reviewed: 11/27/2018 Reviewed by: [facility]) Brian - Fully Assessed Reason for Visit: CARD Follow Up Annual [1232] Primary Visit Diagnosis:Essential hypertension [I10] Other Visit Diagnoses:Obesity, Class I, BMI 30-34.9 [E66.9] Mixed hyperlipidemia [E78.2] Paroxysmal atrial fibrillation (HCC) [I48.0] Chronic anticoagulation [Z79.01] Order(s):ECG B/O W INTERP (MED OFFICE) [ECG06] Order #: [id number] Prescriptions as of 11/27/2018 Sig: SIMVASTATIN 20 [...] stent placement- 2006 [Z95*INVALID FOR* Atherosclerosis of [place] coronary artery of na*INVALID FOR* Asymptomatic cholelithiasis [...] has no cardiac complaints today. Vika Torres [facility] Disposition: Return in about 1 year (around 11/28/2019). Follow-up and Disposition History Recorded Letter Text Encounter Status:Closed by RICKEY CHAVARRIA MD on 11/27/18 [facility] PROGRESSon 11-27-2018 PROGRESS HNO ID: [id number] Author: Rickey Chavarria Service: ? Author Type: Physician Type: Progress Notes Filed: 11/27/2018 11:24 AM Note Text: PRIMARY CARE PHYSICIAN: Jo Perez MD [id number] [facility] [address] [place] [address] HISTORY OF PRESENT ILLNESS: Ms. Gonzalez is [...] again. 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 Ezra [...] of the time was spent in direct, [id number], contact with the patient for management and counseling. 1. Essential hypertension - ICD9: 401.9, ICD10: I10 (primary diagnosis) 2. Obesity, Class I, BMI 30-34.9 - ICD9: 278.00, ICD10: E66.9 3. Mixed hyperlipidemia - ICD9: 272.2, ICD10: E78.2 4. Paroxysmal atrial fibrillation (HCC) - ICD9: 427.31, ICD10: I48.0 5. Chronic anticoagulation - ICD9: V58.61, ICD10: Z79.01 Rickey Chavarria M.D. [facility] Normal [facility] BONE DENSITY STUDY BY XRAY 7 [id number] 07-15-2017 BONE DENSITY STUDY BY XRAY [id number] Performed at [facility] APPROVED BY: Kemar Adams MD EXAMINATION: BONE MINERAL DENSITOMETRY (DEXA SCAN) EXAM DATE: 07/15/2017 09:43 CLINICAL INDICATION: 82-year-old postmenopausal female , follow-up osteoporosis screening. COMPARISON: DEXA scan 10/06/2013. DXA HWW-Frequency v.13.4 examination is performed on the lumbar [...] is a trademark of the [employer], a WHO Collaborating [place]. This applies to men over 50 and [...] risk for accelerated bone loss). Normal [facility] MAMMOGRAM SCREENING WITH CAD IF PERFORMEDon 06-27-2017 MAMMOGRAM SCREENING WITH CAD IF PERFORMED Performed at [facility] APPROVED BY: Lucas Garrido MD #[id number] - MAMMOGRAM SCREENING WITH CAD IF PERFORMEDBILATERAL DIGITAL SCREENING MAMMOGRAM WITH CAD WITH MEDIOLATERAL OBLIQUE CRANIOCAUDAL: 06/27/2017CLINICAL: Routine screening mammogram. Patient reports no breast problems. Comparison is made to exams dated: 07/22/2016 mammogram - [facility], 06/26/2016 mammogram, 06/09/2015 mammogram, and 04/01/2014 mammogram - [facility]. There are scattered fibroglandular elements in both [...] notified of the results. Lucas myers/maggi:06/27/2017 11:38:04 Supervisor Coffee: Loan Summers)(M), [facility] Normal Birad 1 or 2 Mammogram BI-RADS: 1 Negative Normal [facility] Otheron 02-03-2015 CONVERTED CLINICAL HISTORY OPERATIVE PROCEDURE: Colonoscopy CLINICAL INFORMATION: Screening [facility] CONVERTED ELECTRONIC SIGNATURE MO PATRICK M.D., PATHOLOGIST (Electronic signature on file) Final Signed Out: 02/03/2015 12:44 [facility] CONVERTED FINAL DIAGNOSIS FINAL DIAGNOSI S: A) COLON, ASCENDING, BIOPSIES - FRAGMENTS OF TUBULAR ADENOMA. B) COLON, RANDOM BIOPSIES - NO PATHOLOGIC ABNORMALITIES. [facility] CONVERTED GROSS DESCRIPTION GROSS DESCRIPTION: A) [...] totally submitted in cassette B x 3. SMS:[facility] CONVERTED ORDERING PROVIDER Ordering Provider: SHI LESTER [facility] Otheron 04-19-2010 CONVERTED ELECTRONIC SIGNATURE RAVINDER HAN M.D., PATHOLOGIST (Electronic signature on file) Final Signed Out: 04/19/2010 14:33 [facility] CONVERTED FINAL DIAGNOSIS FINAL DIAGNOSI S: RIGHT SHOULDER, EXCISION - BONE AND ATTACHED CARTILAGE WITH DEGENERATIVE CHANGES. SYNOVIUM WITH NONSPECIFIC REACTIVE CHANGES AND FOCAL MILD CHRONIC INFLAMMATION. SPECIMEN: SHOULDER [facility] CONVERTED GROSS DESCRIPTION GROSS DESCRIPTION: Rt shoulder tissue The container is labeled right shoulder tissue. Received are portions of pink-montague soft tissue and red-montague bone measuring 3 x 3 x 1 cm in aggregate. Sample of soft tissue is submitted in cassette 1, sample of bone is submitted in cassette 2 following decal. SMS/lrs MICROSCOPIC DESCRIPTION: Slides reviewed. 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 SPECIMEN: FEMORAL HEAD [facility] CONVERTED GROSS DESCRIPTION GROSS DESCRIPTION: Left [...] decal. SMS:ATP:hlm MICROSCOPIC DESCRIPTION: Slides reviewed. SDS/gpl [facility] CONVERTED ORDERING PROVIDER Ordering Provider: CLOTILDE DOSS [facility] Thyroidon 08-02-2009 TSH Qn KVNG TYLER M.D., PATHOLOGIST (Electronic signature on file) Final Signed Out: 08/02/2009 14:47 [facility]acon 05-11-2001 Cholesterol [Mass/Vol] Ordering Provider : SAE FLANAGAN [facility] Otheron 05-11-2001 CONVERTED ELECTRONIC SIGNATURE MICHAEL HAWTHORNE M.D., PATHOLOGIST (Electronic signature on file) Final Signed Out: 05/11/2001 11:39 [facility] CONVERTED FINAL DIAGNOSIS TISSUE, REMOVE D AT RELEASE OF RIGHT RING FINGER - FIBROCOLLAGENOUS TISSUE WITH FOCAL FIBROBLASTIC REACTION AND FOCAL MIXOID CHANGE. ATTACHED SMALL AMOUNT OF TISSUE CONSISTENT WITH SYNOVIUM. [facility] Vital Signs Date Time Vital Sign Value Performing Clinician Facility 11-22-2024 07:12-0400 Body height 160.[address] Alexandra Hagen MD Work Phone: 9(203)034-744061 [place] [address] 11-22-2024 07:12-0400 Body mass index (BMI) [Ratio] 30.8 kg/m2 Dr. Alexandra Hagen MD Work Phone: 9(978)631-299561 [place] [address] 11-22-2024 07:12-0400 Body weight 78.[address] Alexandra Hagen MD Work Phone: 2(859)147-307561 [place] [address] 11-22-2024 07:12-0400 Diastolic blood pressure 80 mm[Hg] Dr. Alexandra Hagen MD Work Phone: 5(187)495-598461 [place] [address] 11-22-2024 07:12-0400 Heart rate 84 /min Dr. Alexandra Hagen MD Work Phone: 0(037)357-477661 [place] [address] 11-22-2024 07:12-0400 Respiratory rate 20 /min Dr. Alexandra Hagen MD Work Phone: 9(982)662-836361 [place] [address] 11-22-2024 07:12-0400 SaO2% (BldA) [Mass fraction] 95 % Dr. Alexandra Hagen MD Work Phone: 5(153)303-734061 [place] [address] 11-22-2024 07:12-0400 Systolic blood pressure 125 mm[Hg] Dr. Alexandra Hagen MD Work Phone: 7(568)720-146861 [place] [address] 09-13-2024 14:00-0400 Body height 160.[address] Alexandra Hagen MD Work Phone: 1(292)381-683161 [place] [address] 09-13-2024 14:00-0400 Body mass index (BMI) [Ratio] 30.7 kg/m2 Dr. Alexandra Hagen MD Work Phone: 0(298)354-249861 [place] [address] 09-13-2024 14:00-0400 Body temperature 92.6 [degF] Dr. Alexandra Hagen MD Work Phone: 7(993)962-448261 [place] [address] 09-13-2024 14:00-0400 Body weight 78.[address] Alexandra Hagen MD Work Phone: [facility] 09-13-2024 14:00-0400 Diastolic blood pressure 79 mm[Hg] Dr. Alexandra Hagen MD Work Phone: 7(967)207-301314 [place] [address] 09-13-2024 14:00-0400 Heart rate 83 /min Dr. Alexandra Hagen MD Work Phone: 2(291)455-993261 [place] [address] 09-13-2024 14:00-0400 Respiratory rate 17 /min Dr. Alexandra Hagen MD Work Phone: 6(460)279-476061 [place] [address] 09-13-2024 14:00-0400 SaO2% (BldA) [Mass fraction] 97 % Dr. Alexandra Hagen MD Work Phone: 0(446)540-288161 [place] [address] 09-13-2024 14:00-0400 Systolic blood pressure 126 mm[Hg] Dr. Alexandra Hagen MD Work Phone: 3(624)513-549961 [place] [address] 09-11-2024 13:55-0400 Body mass index (BMI) [Ratio] 30.3 kg/m2 Dr. Alexandra Hagen MD Work Phone: 3(231)762-325561 [place] [address] 09-11-2024 09:09-0400 Body temperature 97.8 [degF] Dr. Alexandra Hagen MD Work Phone: 9(689)116-478461 [place] [address] 09-11-2024 09:09-0400 Diastolic blood pressure 85 mm[Hg] Dr. Alexandra Hagen MD Work Phone: 9(612)635-812761 [place] [address] 09-11-2024 09:09-0400 Heart rate 84 /min Dr. Alexandra Hagen MD Work Phone: 7(536)315-115061 [place] [address] 09-11-2024 09:09-0400 Respiratory rate 18 /min Dr. Alexandra Hagen MD Work Phone: 8(946)686-736861 [place] [address] 09-11-2024 09:09-0400 SaO2% (BldA) [Mass fraction] 98 % Dr. Alexandra Hagen MD Work Phone: 7(261)629-081661 [place] [address] 09-11-2024 09:09-0400 Systolic blood pressure 174 mm[Hg] Dr. Alexandra Hagen MD Work Phone: [facility] 09-10-2024 17:17-0400 Body height 160.[address] Alexandra Hagen MD Work Phone: 0(795)674-489514 [place] [address] 09-10-2024 17:17-0400 Body weight 77.[address] Alexandra Hagen MD Work Phone: 7(687)261-944361 [place] [address] 09-10-2024 16:30-0400 Diastolic blood pressure 73 mm[Hg] Dr. Alexandra Hagen MD Work Phone: 9(846)433-760533 [address] 09-10-2024 16:30-0400 Heart rate 79 /min Dr. Alexandra Hagen MD Work Phone: 7(474)000-691061 [place] [address] 09-10-2024 16:30-0400 Respiratory rate 20 /min Dr. Alexandra Hagen MD Work Phone: 3(523)343-899761 [place] [address] 09-10-2024 16:30-0400 SaO2% (BldA) [Mass fraction] 93 % Dr. Alexandra Hagen MD Work Phone: 7(362)492-927061 [place] [address] 09-10-2024 16:30-0400 Systolic blood pressure 118 mm[Hg] Dr. Alexandra Hagen MD Work Phone: 6(321)065-540461 [place] [address] 09-10-2024 16:07-0400 Body temperature 98.3 [degF] Dr. Alexandra Hagen MD Work Phone: 1(118)005-522061 [place] [address] 09-10-2024 14:19-0400 Body height 160.[address] Alexandra Hagen MD Work Phone: 2(275)417-197661 [place] [address] 09-10-2024 14:19-0400 Body mass index (BMI) [Ratio] 26.5 kg/m2 Dr. Alexandra Hagen MD Work Phone: 6(144)192-825661 [place] [address] 09-10-2024 14:19-0400 Body weight 68.[address] Alexandra Hagen MD Work Phone: 0(947)375-155261 [place] [address] 09-08-2024 15:30-0400 Heart rate 64 /min Dr. Alexandra Hgaen MD Work Phone: [facility] 09-08-2024 15:30-0400 Respiratory rate 23 /min Dr. Alexandra Hagen MD Work Phone: 0(926)860-319014 [place] [address] 09-08-2024 15:30-0400 SaO2% (BldA) [Mass fraction] 97 % Dr. Alexandra Hagen MD Work Phone: 7(884)337-604014 [place] [address] 09-08-2024 12:22-0400 Body height 160.[address] Alexandra Hagen MD Work Phone: 1(808)618-918714 [place] [address] 09-08-2024 12:22-0400 Body mass index (BMI) [Ratio] 33.5 kg/m2 Dr. Alexandra Hagen MD Work Phone: 2(248)916-176561 [place] [address] 09-08-2024 12:22-0400 Body temperature 98 [degF] Dr. Alexandra Hagen MD Work Phone: 1(487)655-522561 [place] [address] 09-08-2024 12:22-0400 Body weight 85.[address] Alexandra Hagen MD Work Phone: 0(149)298-954961 [place] [address] 09-08-2024 12:22-0400 Diastolic blood pressure 70 mm[Hg] Dr. Alexandra Hagen MD Work Phone: 3(765)024-663761 [place] [address] 09-08-2024 12:22-0400 Systolic blood pressure 131 mm[Hg] Dr. Alexandra Hagen MD Work Phone: 9(075)081-508114 [place] [address] 07-01-2024 10:38-0400 Body height 160.[address] Alexandra Hagen MD Work Phone: 7(934)452-259161 [place] [address] 07-01-2024 10:38-0400 Body mass index (BMI) [Ratio] 30.8 kg/m2 Dr. Alexandra Hagen MD Work Phone: 5(579)723-166661 [place] [address] 07-01-2024 10:38-0400 Body weight 78.[address] Alexandra Hagen MD Work Phone: 7(846)786-674314 [place] [address] 07-01-2024 10:38-0400 Diastolic blood pressure 85 mm[Hg] Dr. Alexandra Hagen MD Work Phone: [facility] 07-01-2024 10:38-0400 Heart rate 60 /min Dr. Alexandra Hagen MD Work Phone: [facility] 07-01-2024 10:38-0400 Respiratory rate 16 /min Dr. Alexandra Hagen MD Work Phone: 2(594)448-765114 [place] [address] 07-01-2024 10:38-0400 Systolic blood pressure 184 mm[Hg] Dr. Alexandra Hagen MD Work Phone: 4(490)089-063933 [address] 05-10-2024 14:35-0500 Body height 160.[address] Alexandra Hagen MD Work Phone: 6(934)495-602761 [place] [address] 05-10-2024 14:35-0500 Body mass index (BMI) [Ratio] 30.9 kg/m2 Dr. Alexandra Hagen MD Work Phone: 7(656)518-656661 [place] [address] 05-10-2024 14:35-0500 Body temperature 97.8 [degF] Dr. Alexandra Hagen MD Work Phone: 3(853)075-458333 [address] 05-10-2024 14:35-0500 Body weight 79.[address] Alexandra Hagen MD Work Phone: 6(906)794-260661 [place] [address] 05-10-2024 14:35-0500 Diastolic blood pressure 86 mm[Hg] Dr. Alexandra Hagen MD Work Phone: 9(449)273-658514 [place] [address] 05-10-2024 14:35-0500 Heart rate 75 /min Dr. Alexandra Hagen MD Work Phone: 0(828)348-818714 [place] [address] 05-10-2024 14:35-0500 Respiratory rate 16 /min Dr. Alexandra Hagen MD Work Phone: 0(530)646-912614 [place] [address] 05-10-2024 14:35-0500 SaO2% (BldA) [Mass fraction] 94 % Dr. Alexandra Hagen MD Work Phone: 7(767)640-227914 [place] [address] 05-10-2024 14:35-0500 Systolic blood pressure 140 mm[Hg] Dr. Alexandra Hagen MD Work Phone: [facility] 06-20-2023 11:10-0400 Diastolic blood pressure 92 mm[Hg] Sae Conde MD Work Phone: [facility] 06-20-2023 11:10-0400 Heart rate 88 /min Sae Conde MD Work Phone: [facility] 06-20-2023 11:10-0400 Systolic blood pressure 173 mm[Hg] Sae Conde MD Work Phone: [facility] 06-20-2023 05:34-0400 Body temperature 97.39 [degF] Sae Conde MD Work Phone: [facility] 06-20-2023 05:34-0400 Respiratory rate 20 /min Sae Conde MD Work Phone: [facility] 06-20-2023 05:34-0400 SaO2% (BldA) [Mass fraction] 95 % Sae Conde MD Work Phone: [facility] 06-17-2023 18:30-0400 Body height 160 cm Sae Conde MD Work Phone: [facility] 06-17-2023 18:30-0400 Body mass index (BMI) [Ratio] 30.83 kg/m2 Sae Conde MD Work Phone: [facility] 06-17-2023 18:30-0400 Body weight 78.93 kg Sae Conde MD Work Phone: [facility] 06-16-2023 11:02-0400 Body temperature 96.4 [degF] Dr. oRsemary Doran Work Phone: [facility] 06-16-2023 11:02-0400 Diastolic blood pressure 84 mm[Hg] Dr. Rosemary Doran Work Phone: [facility] 06-16-2023 11:02-0400 Heart rate 72 /min Dr. Rosemary Doran Work Phone: [facility] 06-16-2023 11:02-0400 Respiratory rate 16 /min Dr. Rosemary Doran Work Phone: [facility] 06-16-2023 11:02-0400 SaO2% (BldA) [Mass fraction] 96 % Dr. Rosemary Doran Work Phone: [facility] 06-16-2023 11:02-0400 Systolic blood pressure 157 mm[Hg] Dr. Rosemary Doran Work Phone: [facility] 06-16-2023 08:33-0400 Body height 160.[address] Rosemary Doran Work Phone: [facility] 06-16-2023 08:33-0400 Body mass index (BMI) [Ratio] 33.1 kg/m2 Dr. Rosemary Doran Work Phone: [facility] 06-16-2023 08:33-0400 Body weight 84.[address] Rosemary Doran Work Phone: [facility] 05-19-2023 11:21-0500 Body height 160.[address] Rosemary Doran Work Phone: [facility] 05-19-2023 11:21-0500 Body mass index (BMI) [Ratio] 31.6 kg/m2 Dr. Rosemary Doran Work Phone: [facility] 05-19-2023 11:21-0500 Body temperature 97.8 [degF] Dr. Rosemary Doran Work Phone: [facility] 05-19-2023 11:21-0500 Body weight 81.[address] Rosemary Doran Work Phone: [facility] 05-19-2023 11:21-0500 Diastolic blood pressure 90 mm[Hg] Dr. Rosemary Doran Work Phone: [facility] 05-19-2023 11:21-0500 Heart rate 88 /min Dr. Rosemary Doran Work Phone: [facility] 05-19-2023 11:21-0500 Respiratory rate 17 /min Dr. Rosemary Doran Work Phone: [facility] 05-19-2023 11:21-0500 SaO2% (BldA) [Mass fraction] 98 % Dr. Rosemary Doran Work Phone: [facility] 05-19-2023 11:21-0500 Systolic blood pressure 152 mm[Hg] Dr. Rosemary Doran Work Phone: [facility] 05-15-2023 09:01-0500 Body mass index (BMI) [Ratio] 31.6 kg/m2 Dr. Rosemary Doran Work Phone: [facility] 05-15-2023 09:01-0500 Body weight 81.[address] Rosemary Doran Work Phone: [facility] 05-15-2023 09:01-0500 Diastolic blood pressure 85 mm[Hg] Dr. Rosemary Doran Work Phone: [facility] 05-15-2023 09:01-0500 Heart rate 78 /min Dr. Rosemary Doran Work Phone: [facility] 05-15-2023 09:01-0500 Respiratory rate 18 /min Dr. Rosemary Doran Work Phone: [facility] 05-15-2023 09:01-0500 Systolic blood pressure 156 mm[Hg] Dr. Rosemary Doran Work Phone: [facility] 01-20-2023 08:05-0400 Body height 160.[address] Rosemary Doran Work Phone: [facility] 01-20-2023 08:05-0400 Body mass index (BMI) [Ratio] 32 kg/m2 Dr. Rosemary Doran Work Phone: [facility] 01-20-2023 08:05-0400 Body temperature 98 [degF] Dr. Rosemary Doran Work Phone: [facility] 01-20-2023 08:05-0400 Body weight 82.[address] Rosemary Doran Work Phone: [facility] 01-20-2023 08:05-0400 Diastolic blood pressure 90 mm[Hg] Dr. Rosemary Doran Work Phone: [facility] 01-20-2023 08:05-0400 Heart rate 88 /min Dr. Rosemary Doran Work Phone: [facility] 01-20-2023 08:05-0400 Respiratory rate 17 /min Dr. Rosemary Doran Work Phone: [facility] 01-20-2023 08:05-0400 SaO2% (BldA) [Mass fraction] 97 % Dr. Rosemary Doran Work Phone: [facility] 01-20-2023 08:05-0400 Systolic blood pressure 140 mm[Hg] Dr. Rosemary Doran Work Phone: [facility] 12-28-2022 11:09-0400 Body temperature 97.8 [degF] Dr. Rosemary Doran Work Phone: [facility] 12-28-2022 11:09-0400 Diastolic blood pressure 79 mm[Hg] Dr. Rosemary Doran Work Phone: [facility] 12-28-2022 11:09-0400 Heart rate 84 /min Dr. Rosemary Doran Work Phone: [facility] 12-28-2022 11:09-0400 Respiratory rate 16 /min Dr. Rosemary Doran Work Phone: [facility] 12-28-2022 11:09-0400 SaO2% (BldA) [Mass fraction] 96 % Dr. Rosemary Doran Work Phone: [facility] 12-28-2022 11:09-0400 Systolic blood pressure 169 mm[Hg] Dr. Rosemary Doran Work Phone: [facility] 12-27-2022 19:16-0400 Body height 160.[address] Rosemary Doran Work Phone: [facility] 12-27-2022 19:16-0400 Body mass index (BMI) [Ratio] 32.1 kg/m2 Dr. Rosemary Doran Work Phone: [facility] 12-27-2022 19:16-0400 Body weight 82.[address] Rosemary Doran Work Phone: [facility] 12-05-2022 09:25-0400 Body temperature 98.2 [degF] Dr. Rosemary Doran Work Phone: [facility] 12-05-2022 09:25-0400 Body weight 82.[address] Rosemary Doran Work Phone: [facility] 12-05-2022 09:25-0400 Diastolic blood pressure 85 mm[Hg] Dr. Rosemary Doran Work Phone: [facility] 12-05-2022 09:25-0400 Heart rate 90 /min Dr. Rosemary Doran Work Phone: [facility] 12-05-2022 09:25-0400 SaO2% (BldA) [Mass fraction] 95 % Dr. Rosemary Doran Work Phone: [facility] 12-05-2022 09:25-0400 Systolic blood pressure 145 mm[Hg] Dr. Rosemary Doran Work Phone: [facility] 11-18-2022 11:24-0400 Diastolic blood pressure 82 mm[Hg] Dr. Rosemary Doran Work Phone: [facility] 11-18-2022 11:24-0400 Heart rate 76 /min Dr. Rosemary Doran Work Phone: [facility] 11-18-2022 11:24-0400 Respiratory rate 15 /min Dr. Rosemary Doran Work Phone: [facility] 11-18-2022 11:24-0400 SaO2% (BldA) [Mass fraction] 98 % Dr. Rosemary Doran Work Phone: [facility] 11-18-2022 11:24-0400 Systolic blood pressure 137 mm[Hg] Dr. Rosemary Doran Work Phone: [facility] 11-18-2022 07:55-0400 Body height 160.[address] Rosemary Doran Work Phone: [facility] 11-18-2022 07:55-0400 Body mass index (BMI) [Ratio] 32.9 kg/m2 Dr. Rosemary Doran Work Phone: [facility] 11-18-2022 07:55-0400 Body weight 84.[address] Rosemary Doran Work Phone: [facility] 11-18-2022 07:50-0400 Body temperature 97.8 [degF] Dr. Rosemary Doran Work Phone: [facility] 11-15-2022 10:11-0400 Body mass index (BMI) [Ratio] 32.2 kg/m2 Dr. Rosemary Doran Work Phone: [facility] 11-15-2022 08:55-0400 Body temperature 97.7 [degF] Dr. Rosemary Doran Work Phone: [facility] 11-15-2022 08:55-0400 Diastolic blood pressure 78 mm[Hg] Dr. Rosemary Doran Work Phone: [facility] 11-15-2022 08:55-0400 Heart rate 68 /min Dr. Rosemary Doran Work Phone: [facility] 11-15-2022 08:55-0400 Respiratory rate 16 /min Dr. Rosemary Doran Work Phone: [facility] 11-15-2022 08:55-0400 SaO2% (BldA) [Mass fraction] 96 % Dr. Rosemary Doran Work Phone: [facility] 11-15-2022 08:55-0400 Systolic blood pressure 136 mm[Hg] Dr. Rosemary Doran Work Phone: [facility] 11-14-2022 13:12-0400 Body weight 82.[address] Rosemary Doran Work Phone: [facility] 11-14-2022 12:30-0400 Body temperature 97.6 [degF] Dr. Rosemary Doran Work Phone: [facility] 11-14-2022 12:30-0400 Diastolic blood pressure 101 mm[Hg] Dr. Rosemary Doran Work Phone: [facility] 11-14-2022 12:30-0400 Heart rate 64 /min Dr. Rosemary Doran Work Phone: [facility] 11-14-2022 12:30-0400 Respiratory rate 14 /min Dr. Rosemary Doran Work Phone: [facility] 11-14-2022 12:30-0400 SaO2% (BldA) [Mass fraction] 98 % Dr. Rosemary Doran Work Phone: [facility] 11-14-2022 12:30-0400 Systolic blood pressure 164 mm[Hg] Dr. Rosemary Doran Work Phone: [facility] 11-14-2022 11:02-0400 Body height 160.[address] Rosemary Doran Work Phone: [facility] 11-14-2022 11:02-0400 Body mass index (BMI) [Ratio] 33.7 kg/m2 Dr. Rosemary Doran Work Phone: [facility] 11-14-2022 11:02-0400 Body weight 86.[address] Rosemary Doran Work Phone: [facility] 10-15-2022 09:24-0400 Body height 160.[address] Rosemary Doran Work Phone: [facility] 10-15-2022 09:24-0400 Body mass index (BMI) [Ratio] 30.8 kg/m2 Dr. Rosemary Doran Work Phone: [facility] 10-15-2022 09:24-0400 Body weight 78.[address] Rosemary Doran Work Phone: [facility] 10-15-2022 09:24-0400 Diastolic blood pressure 87 mm[Hg] Dr. Rosemary Doran Work Phone: [facility] 10-15-2022 09:24-0400 Heart rate 73 /min Dr. Rosemary Doran Work Phone: [facility] 10-15-2022 09:24-0400 Respiratory rate 18 /min Dr. Rosemary Doran Work Phone: [facility] 10-15-2022 09:24-0400 Systolic blood pressure 149 mm[Hg] Dr. Rosemary Doran Work Phone: [facility] 09-18-2022 19:36-0400 Diastolic blood pressure 72 mm[Hg] Dr. Rosemary Doran Work Phone: [facility] 09-18-2022 19:36-0400 Systolic blood pressure 140 mm[Hg] Dr. Rosemary Doran Work Phone: [facility] 09-18-2022 08:05-0400 Body height 160.[address] Rosemary Doran Work Phone: [facility] 09-18-2022 08:05-0400 Body mass index (BMI) [Ratio] 31.8 kg/m2 Dr. Rosemary Doran Work Phone: [facility] 09-18-2022 08:05-0400 Body temperature 97.8 [degF] Dr. Rosemary Doran Work Phone: [facility] 09-18-2022 08:05-0400 Body weight 81.[address] Rosemary Doran Work Phone: [facility] 09-18-2022 08:05-0400 Heart rate 111 /min Dr. Rosemary Doran Work Phone: [facility] 09-18-2022 08:05-0400 Respiratory rate 17 /min Dr. Rosemary Doran Work Phone: [facility] 09-18-2022 08:05-0400 SaO2% (BldA) [Mass fraction] 99 % Dr. Rosemary Doran Work Phone: [facility] 09-08-2022 16:03-0400 Diastolic blood pressure 84 mm[Hg] Dr. Rosemary Doran Work Phone: [facility] 09-08-2022 16:03-0400 Heart rate 90 /min Dr. Rosemary Doran Work Phone: [facility] 09-08-2022 16:03-0400 Respiratory rate 20 /min Dr. Rosemary Doran Work Phone: [facility] 09-08-2022 16:03-0400 SaO2% (BldA) [Mass fraction] 97 % Dr. Rosemary Doran Work Phone: [facility] 09-08-2022 16:03-0400 Systolic blood pressure 157 mm[Hg] Dr. Rosemary Doran Work Phone: [facility] 09-08-2022 15:32-0400 Body mass index (BMI) [Ratio] 33.2 kg/m2 Dr. Rosemary Doran Work Phone: [facility] 09-08-2022 15:32-0400 Body weight [address] Rosemary Doran Work Phone: [facility] 09-08-2022 14:26-0400 Body temperature 96.8 [degF] Dr. Rosemary Doran Work Phone: [facility] 04-16-2022 14:26-0500 Body height 160.[address] Rosemary Doran Work Phone: [facility] 04-16-2022 14:26-0500 Body mass index (BMI) [Ratio] 30.6 kg/m2 Dr. Rosemary Doran Work Phone: [facility] 04-16-2022 14:26-0500 Body weight 78.[address] Rosemary Doran Work Phone: [facility] 04-16-2022 14:26-0500 Diastolic blood pressure 60 mm[Hg] Dr. Rosemary Doran Work Phone: [facility] 04-16-2022 14:26-0500 Heart rate 88 /min Dr. Rosemary Doran Work Phone: [facility] 04-16-2022 14:26-0500 Respiratory rate 18 /min Dr. Rosemary Doran Work Phone: [facility] 04-16-2022 14:26-0500 Systolic blood pressure 89 mm[Hg] Dr. Rosemary Doran Work Phone: [facility] 02-11-2022 02:02-0500 Diastolic blood pressure 82 mm[Hg] Dr. Rosemary Doran Work Phone: [facility] 02-11-2022 02:02-0500 Heart rate 74 /min Dr. Rosemary Doran Work Phone: [facility] 02-11-2022 02:02-0500 Respiratory rate 16 /min Dr. Rosemary Doran Work Phone: [facility] 02-11-2022 02:02-0500 SaO2% (BldA) [Mass fraction] 96 % Dr. Rosemary Doran Work Phone: [facility] 02-11-2022 02:02-0500 Systolic blood pressure 106 mm[Hg] Dr. Rosemary Doran Work Phone: [facility] 02-11-2022 00:07-0500 Body height 160.[address] Rosemary Doran Work Phone: [facility] Work Phone: 02-11-2022 00:07-0500 Body mass index (BMI) [Ratio] 33.1 kg/m2 Dr. Rosemary Doran Work Phone: [facility] 02-11-2022 00:07-0500 Body temperature 98.4 [degF] Dr. Rosemary Doran Work Phone: [facility] 02-11-2022 00:07-0500 Body weight 84.[address] Rosemary Doran Work Phone: [facility] 10-18-2021 10:26-0400 Body mass index (BMI) [Ratio] 33.1 kg/m2 Dr. Rosemary Doran Work Phone: [facility] Work Phone: 10-18-2021 10:26-0400 Body weight 84.[address] Rosemary Doran Work Phone: [facility] Work Phone: 10-18-2021 10:26-0400 Diastolic blood pressure 63 mm[Hg] Dr. Rosemary Doran Work Phone: [facility] Work Phone: 10-18-2021 10:26-0400 Heart rate 87 /min Dr. Rosemary Doran Work Phone: [facility] Work Phone: 10-18-2021 10:26-0400 Respiratory rate 20 /min Dr. Rosemary Doran Work Phone: [facility] Work Phone: 10-18-2021 10:26-0400 SaO2% (BldA) [Mass fraction] 96 % Dr. Rosemary Doran Work Phone: [facility] Work Phone: 10-18-2021 10:26-0400 Systolic blood pressure 101 mm[Hg] Dr. Rosemary Doran Work Phone: [facility] Work Phone: Encounters Encounter Date Encounter Type Care Provider Facility Start: 11-30-2024 ambulatory [facility] Facility: [facility] Start: 11-22-2024 End: 11-22-2024 Patient encounter procedure Yinka ZUNIGA -[facility] Work Phone: Start: 11-22-2024 End: 11-22-[address] Alexandra Hagen MD Work Phone: -[facility] Start: 11-22-2024 End: 11-22-2024 ambulatory [facility] Facility:[facility] Start: 11-08-2024 ambulatory [facility] Facility: [facility] Start: 11-08-[address] Kvng [facility] Work Phone: Start: 10-25-2024 ambulatory [facility] Facility: [facility] Start: 10-25-[address] [facility]vng [facility] Work Phone: Start: 10-11-2024 ambulatory [facility] Facility: [facility] Start: 10-11-[address] Kvng [facility] Work Phone: Start: 10-04-2024 ambulatory [facility] Facility: [facility] Start: 10-04-2024 Registered Referred [facility] Work Phone: Start: 09-24-2024 ambulatory [facility]: [facility] Start: 09-24-2024 Registered Referred [facility] Work Phone: Start: 09-22-2024 ambulatory [facility] Facility: [facility] Start: 09-22-[address] Kvng [facility] Work Phone: Start: 09-17-2024 ambulatory Cesar Cole Facility:[facility] Start: 09-17-2024 Registered Referred [facility] Work Phone: Start: 09-13-2024 End: 09-13-[address] Anant Juarez MD -[facility] Work Phone: Start: 09-13-2024 End: 09-13-[address] Alexandra Hagen MD Work Phone: [facility] Work Phone: Start: 09-13-2024 End: 09-13-2024 ambulatory [facility] Start: 09-11-2024 Non-patient / Non-visit Dr. Richardson [facility] Work Phone: Start: 09-10-2024 End: 09-11-2024 ambulatory Kvng Ochoa Facility:[facility] Start: 09-10-2024 End: 09-11-2024 Evaluation and management of inpatient Dr. Matthew Oro DO -Progressive Care Unit Work Phone: Start: 09-10-2024 End: 09-11-[address] Alexandra Hagen MD Work Phone: [facility] Work Phone: Start: 09-08-2024 End: 09-08-2024 Emergency department patient visit Dr. Alexandra Hagen MD Work Phone: -Emergency Department Work Phone: Start: 08-18-2024 End: 08-18-[address] Alexandra Hagen MD Work Phone: [facility] Work Phone: Start: 08-18-2024 End: 08-18-2024 Departed Referred [facility] Work Phone: Start: 08-18-2024 Registered Referred [facility] Work Phone: Start: 08-18-2024 End: 08-18-2024 ambulatory Cesar Cole Facility:[facility] Start: 07-19-2024 End: 07-19-[address] Alexandra Hagen MD Work Phone: [facility] Work Phone: Start: 07-19-2024 End: 07-19-2024 Departed Referred [facility] Work Phone: Start: 07-19-2024 End: 07-19-2024 ambulatory Cesar Cole Facility:[facility] Start: 07-01-2024 End: 07-01-[address] Cesar Cole MD -[facility] Work Phone: Start: 07-01-2024 End: 07-01-2024 ambulatory Alexandra Hagen Facility:[facility] Start: 06-16-2024 End: 06-16-[address] Alexandra Hagen MD Work Phone: [facility] Work Phone: Start: 06-16-2024 End: 06-16-[address] [facility]ng [facility] Work Phone: Start: 06-16-[address] Kvng leger MD [facility] Work Phone: Start: 06-16-2024 End: 06-16-2024 ambulatory Kvng MARTINEZ Facility:[facility] Start: 06-09-2024 End: 06-09-[address] Alexandra Hagen MD Work Phone: [facility] Work Phone: Start: 06-09-2024 End: 06-09-[address] [facility] Work Phone: Start: 06-09-2024 End: 06-09-2024 ambulatory Kvng MARTINEZ Facility:[facility] Start: 05-19-2024 End: 05-19-[address] Alexandra Hagen MD Work Phone: [facility] Work Phone: Start: 05-19-2024 End: 05-19-2024 Departed Referred [facility] Work Phone: Start: 05-19-[address] Work Phone: Start: 05-19-2024 End: 05-19-2024 ambulatory Cesar Cole Facility:[facility] Start: 05-12-2024 ambulatory Anant Cobian y:[facility] Start: 05-12-2024 Registered Referred Anant [facility] Work Phone: Start: 05-10-2024 End: 05-10-[address] Anant Juarez MD -[facility] Work Phone: Start: 05-10-2024 End: 05-10-2024 ambulatory Anant Juarez Facility:[facility] Start: 05-05-2024 End: 05-05-[address] Alexandra Hagen MD Work Phone: [facility] Work Phone: Start: 05-05-2024 End: 05-05-2024 Departed Referred [facility] Work Phone: Start: 05-05-2024 Registered Referred [facility] Work Phone: Start: 05-05-2024 End: 05-05-2024 ambulatory Cesar Cole Facility:[facility] Start: 04-28-2024 End: 04-28-[address] Alexandra Hagen MD Work Phone: [facility] Work Phone: Start: 04-28-2024 End: 04-28-[address] Kvng [facility] Work Phone: Start: 04-28-2024 End: 04-28-2024 ambulatory Kvng MARTINEZ Facility:[facility] Start: 04-14-2024 ambulatory Alexandra Hagen Facility: [facility] Start: 04-14-[address] Kvng [facility] Work Phone: Start: 04-09-2024 End: 04-09-[address] Kvng [facility] Work Phone: Start: 04-09-2024 End: 04-09-2024 ambulatory Alexandra S Jolliff Facility:[facility] Start: 04-06-2024 End: 04-06-[address] Kvng [facility] Work Phone: Start: 04-05-2024 End: 04-06-2024 ambulatory Alexandra S Jolliff Facility:[facility] Start: 04-05-[address] Kvng [facility] Work Phone: Start: 03-29-2024 [facility] Start: 03-29-[address] Kvng [facility] Work Phone: Start: 03-26-2024 ambulatory Kvng Ochoa OLS Facil ity:[facility] Start: 03-26-[address] Kvng [facility] Work Phone: Start: 03-25-2024 ambulatory Kvng Ochoa OLS Facil ity:[facility] Start: 03-25-[address] Kvng [facility] Work Phone: Start: 03-19-2024 ambulatory Alexandra S Jolliff Facility: [facility] Start: 03-19-[address] [facility] Work Phone: Start: 03-17-2024 ambulatory Alexandra S Jolliff Facility: [facility] Start: 03-17-[address] Kvng [facility] Work Phone: Start: 03-10-2024 ambulatory Alexandra S Jolliff Facility: [facility] Start: 03-10-[address] [facility]vng [facility] Work Phone: Start: 03-08-2024 ambulatory Alexandra S Jolliff Facility: [facility] Start: 03-08-[address] Kvng [facility] Work Phone: Start: 03-04-2024 ambulatory Alexandra S Jolliff Facility: [facility] Start: 03-04-[address] Kvng leger MD -[facility] Work Phone: Start: 02-05-2024 End: 02-05-[address] Kvng Ochoa MD -[facility] Work Phone: Start: 02-05-2024 End: 02-05-2024 ambulatory Alexandra S Jolliff Facility:[facility] Start: 01-08-2024 End: 01-08-2024 ambulatory Alexandra S Jolliff Facility:[facility] Start: 12-26-2023 End: 12-26-2023 ambulatory Alexandra S Jolliff Facility:[facility] Start: 12-19-2023 End: 12-19-2023 ambulatory Alexandra S Jolliff Facility:[facility] Start: 12-18-2023 End: 12-18-2023 ambulatory Alexandra S Jolliff Facility:[facility] Start: 06-30-2023 End: 06-30-[address] Rosemary Doran Work Phone: [facility] Work Phone: Start: 06-30-2023 End: 06-30-[address] Rosemary Doran Work Phone: [facility] Work Phone: Start: 06-16-2023 End: 06-20-2023 Evaluation and management of inpatient [facility] Start: 06-16-2023 End: 06-20-2023 Evaluation and management of inpatient Sae Conde MD Work Phone: [facility] Comment on above: Closed displaced fra cture of medial condyle of right humerus, initial encounter (Primary Dx) Start: 06-16-2023 Non-patient / Non-visit Dr. Slim Doran Work Phone: [facility] Start: 06-16-2023 End: 06-16-2023 Emergency department patient visit Dr. Rosemary Doran Work Phone: [facility]-Emergency Department Work Phone: Start: 05-30-2023 End: 05-30-[address] Rosemary Doran Work Phone: [facility] Work Phone: Start: 05-30-2023 End: 05-30-[address] Rosemary Doran Work Phone: [facility] Work Phone: Start: 05-19-2023 End: 05-19-[address] Rosemary Doran Work Phone: [facility] Work Phone: Start: 05-15-2023 End: 05-15-[address] Rosemary Doran Work Phone: [facility] Work Phone: Start: 05-12-2023 End: 05-12-[address] Rosemary Doran Work Phone: [facility] Work Phone: Start: 05-12-[address] Rosemary Doran Work Phone: [facility] Work Phone: Start: 05-01-2023 End: 05-01-[address] Rosemary Doran Work Phone: [facility] Work Phone: Start: 05-01-2023 End: 05-01-[address] Rosemary Doran Work Phone: [facility] Work Phone: Start: 04-17-2023 End: 04-17-[address] Rosemary Doran Work Phone: [facility] Work Phone: Start: 04-17-2023 End: 04-17-[address] Rosemary Doran Work Phone: [facility] Work Phone: Start: 04-17-[address] Rosemary Doran Work Phone: [facility] Work Phone: Start: 03-20-2023 End: 03-20-[address] Rosemary Doran Work Phone: [facility] Work Phone: Start: 02-21-2023 End: 02-21-[address] Rosemary Doran Work Phone: [facility] Work Phone: Start: 02-21-2023 End: 02-21-[address] Rosemary Doran Work Phone: [facility] Work Phone: Start: 01-20-2023 End: 01-20-[address] Rosemary Doran Work Phone: [facility] Work Phone: Start: 01-20-2023 End: 01-20-[address] Rosemary Doran Work Phone: [facility] Work Phone: Start: 01-20-2023 End: 01-20-[address] Rosemary Doran Work Phone: [facility] Work Phone: Start: 01-16-2023 End: 01-16-[address] Rosemary Doran Work Phone: [facility] Work Phone: Start: 01-16-2023 End: 01-16-[address] Rosemary Doran Work Phone: [facility] Work Phone: Start: 12-28-2022 Non-patient / Non-visit Dr. Slim Doran Work Phone: [facility] Work Phone: Start: 12-27-2022 Non-patient / Non-visit Dr. Slim Doran Work Phone: [facility] Work Phone: Start: 12-27-2022 End: 12-28-2022 Evaluation and management of inpatient Dr. Rosemary Doran Work Phone: [facility] Work Phone: Start: 12-27-2022 End: 12-28-[address] Rosemary Doran Work Phone: [facility] Work Phone: Start: 12-19-2022 End: 12-19-[address] Rosemary Doran Work Phone: [facility] Work Phone: Start: 12-19-2022 End: 12-19-[address] Rosemary Doran Work Phone: [facility] Work Phone: Start: 12-19-[address] Rosemary Doran Work Phone: [facility] Work Phone: Start: 12-09-2022 End: 12-09-[address] Rosemary Doran Work Phone: [facility] Work Phone: Start: 12-09-2022 End: 12-09-[address] Rosemary Doran Work Phone: [facility] Work Phone: Start: 12-09-[address] Rosemary Doran Work Phone: [facility] Work Phone: Start: 12-05-2022 End: 12-05-[address] Rosemary Doran Work Phone: [facility] Work Phone: Start: 11-20-2022 End: 11-20-[address] Rosemary Doran Work Phone: [facility] Work Phone: Start: 11-20-2022 End: 11-20-[address] Rosemary Doran Work Phone: [facility] Work Phone: Start: 11-20-[address] Rosemary Doran Work Phone: [facility] Work Phone: Start: 11-18-2022 End: 11-18-2022 Emergency department patient visit Dr. Rosemary Doran Work Phone: [facility]-Emergency Department Work Phone: Start: 11-15-2022 Non-patient / Non-visit Dr. Slim Doran Work Phone: [facility] Work Phone: Start: 11-14-2022 Non-patient / Non-visit Dr. Slim Doran Work Phone: [facility] Start: 11-14-2022 Non-patient / Non-visit Dr. Slim Doran Work Phone: [facility] Work Phone: Start: 11-14-2022 End: 11-15-2022 Evaluation and management of inpatient Dr. Rosemary Doran Work Phone: [facility]-Progressive Care Unit Work Phone: Start: 11-14-[address] Marcelo Doran Work Phone: [facility] Work Phone: Start: 10-23-2022 End: 10-23-[address] Rosemary Doran Work Phone: [facility] Work Phone: Start: 10-23-2022 End: 10-23-[address] Rosemary Doran Work Phone: [facility] Work Phone: Start: 10-22-2022 End: 10-22-[address] Rosemary Doran Work Phone: [facility] Work Phone: Start: 10-22-2022 End: 10-22-[address] Rosemary Doran Work Phone: [facility]-Physical Therapy Work Phone: Start: 10-22-[address] Sada Doran Work Phone: [facility]-Physical Therapy Work Phone: Start: 10-15-2022 End: 10-15-[address] Rosemary Doran Work Phone: [facility] Work Phone: Start: 09-26-2022 Non-patient / Non-visit Dr. Slim Doran Work Phone: [facility] Start: 09-26-2022 End: 09-26-[address] Rosemary Doran Work Phone: [facility] Work Phone: Start: 09-26-2022 End: 09-26-[address] Rosemary Doran Work Phone: [facility]-Cardiovascula [facility] Services Work Phone: Start: 09-18-2022 End: 09-18-[address] Rosemary Doran Work Phone: [facility] Work Phone: Start: 09-18-2022 End: 09-18-[address] Rosemary Doran Work Phone: [facility] Start: 09-13-2022 End: 09-13-[address] Rosemary Doran Work Phone: [facility]-Laboratory Start: 09-08-2022 End: 09-08-2022 Emergency department patient visit Dr. Rosemary Doran Work Phone: [facility]-Emergency Department Start: 09-06-2022 End: 09-06-[address] Rosemary Doran Work Phone: [facility] Start: 09-05-2022 End: 09-05-[address] Rosemary Doran Work Phone: [facility] Start: 08-08-2022 End: 08-08-[address] Rosemary Doran Work Phone: [facility] Start: 06-26-2022 End: 06-26-[address] oRsemary Doran Work Phone: [facility] Work Phone: Start: 06-26-2022 End: 06-26-[address] Rosemary Doran Work Phone: [facility] Start: 06-04-2022 End: 06-04-[address] Rosemary Doran Work Phone: [facility] Work Phone: Start: 06-04-2022 End: 06-04-[address] Rosemary Doran Work Phone: [facility] Start: 04-16-2022 End: 04-16-[address] Rosemary Doran Work Phone: [facility] Start: 02-11-2022 End: 02-11-2022 Emergency department patient visit Dr. Rosemary Doran Work Phone: [facility]-Emergency Department Start: 10-18-2021 End: 10-18-[address] Rosemary Doran Work Phone: [facility] Start: 10-12-2019 End: 10-12-2019 Refill Jo Perez Work Phone: [facility] Comment on above: Refill Request; Refi ll Request Start: 02-11-2018 Patient encounter ROSA ELENA Cai lity:[facility] Start: 01-05-2018 End: 01-05-2018 Patient encounter JO PEREZ Facility:[facility] Start: 07-21-2017 End: 07-21-2017 Patient encounter RICKEY CHAVARRIA Facility:[facility] Start: 07-15-2017 Patient encounter JO PEREZ Facility:[facility] Start: 07-07-2017 End: 07-07-2017 Patient encounter JO PEREZ Facility:[facility] Start: 06-27-2017 End: 06-27-2017 Patient encounter JO PEREZ Facility:[facility] Start: 06-11-2017 Patient encounter JO PEREZ Facility:[facility] Start: 02-01-2015 End: 02-01-2015 Patient encounter procedure Shi Lester Work Phone: [facility] Start: 02-01-2015 Results Only Shi ford Work Phone: [facility] Start: 04-17-2010 End: 04-17-2010 Patient encounter procedure Cruz Felicianott Work Phone: [facility] Start: 04-17-2010 Results Only Cruz Nguyen ippitt Work Phone: [facility] Start: 07-31-2009 End: 07-31-2009 Patient encounter procedure Clotilde Doss Work Phone: [facility] Start: 07-31-2009 Results Only Clotilde murray Work Phone: [facility] Start: 05-07-2001 End: 05-07-2001 Patient encounter procedure Sae Arnett Astrid Work Phone: [facility] Start: 05-07-2001 Results Only Sae Arnett Pap as Work Phone: [facility] Procedures Date Procedure Procedure Detail Performing [...] quantitative blood xcpt reagent strip 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 Phone: Start: 06-20-2023 Prothrombin time Merlenedi th Perez 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 Work Phone: Start: 06-19-2023 Glucose quantitative blood xcpt reagent strip 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 Phone: Start: 06-19-2023 Glucose quantitative blood xcpt reagent strip 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 Phone: Start: 06-19-2023 Glucose quantitative blood xcpt reagent strip 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.] on above: Performed By: #### L [id number] ####Esthetician: ALEXANDRA BUSTAMANTE ([id number])[facility] BLOOD [facility] ([address] Start: 06-16-2023 End: 06-16-2023 Radex shoulder [...] Treatment Date Care Activity Detail Author Start: 11-22-2024 Evaluation of diagno stic study results [facility] Start: 09-13-2024 Lamotrigine measurement [facility] Start: 09-13-2024 Measurement of substance [facility] Start: 09-11-2024 Patient discharge [facility] Start: 09-11-2024 Complete blood count [facility] Start: 09-10-2024 Following clinical p athway protocol [facility] Start: 09-10-2024 Transfusion of blood product [facility] Start: 09-10-2024 Aspiration precautions [facility] Start: 09-10-2024 Assessment of risk o f venous thromboembolism [facility] Start: 09-10-2024 Cardiac monitoring [facility] Start: 09-10-2024 Catheterization of vein [facility] Start: 09-10-2024 Consultation [facility] Start: 09-10-2024 Continuous pulse oximetry [facility] Start: 09-10-2024 Electroencephalogram [facility] Start: 09-10-2024 Elevation of head of bed [facility] Start: 09-10-2024 Exercises [facility] Start: 09-10-2024 Insertion of cathete r into peripheral vein [facility] Start: 09-10-2024 Notification of physician [facility] Start: 09-10-2024 Oxygen therapy [facility] Start: 09-10-2024 Patient referral to dietitian [facility] Start: 09-10-2024 Providing care accor ding to standard [facility] Start: 09-10-2024 Referral to occupati onal therapist [facility] Start: 09-10-2024 Referral to service [facility] Start: 09-10-2024 Speech therapy assessment [facility] Start: 09-10-2024 Telemedicine consult ation with patient [facility] Start: 09-10-2024 Tobacco use cessatio n education [facility] Start: 09-10-2024 Vital signs measurements [facility] Start: 09-10-2024 End: 09-10-2024 [facility] Start: 09-10-2024 Verification routine [facility] Start: 09-10-2024 MRI of brain without contrast Brain without Contrast [facility] Start: 09-10-2024 Admission procedure [facility] Start: 09-10-2024 [facility] Start: 09-10-2024 Bacteria identified in Urine by Culture Urine Culture [facility] Start: 09-10-2024 Urine culture [facility] Start: 09-10-2024 Oxygen therapy [facility] Start: 09-10-2024 [facility] Start: 09-08-2024 Lamotrigine measurement [facility] Start: 01-06-2024 Urine microalbumin profile DTA P,TDAP,TD (1 - Tdap) [facility] Comment on above: Postponed from 06/23 (Declined at this time) Start: 07-28-2023 ADVANCE DIRECTIVE DISCUSSION A DVANCE DIRECTIVE DISCUSSION [facility] Start: 06-16-2023 Application long arm splint shoulder hand APPLY LONG ARM SPLINT [facility] Start: 06-16-2023 [facility] Start: 03-31-2023 Medicare Advantage A nnual Wellness Visit Medicare Advantage Annual Wellness Visit [facility] Start: 01-20-2023 Serum immunofixation [facility] Start: 01-20-2023 Urine immunofixation [facility] Start: 12-28-2022 Patient discharge [facility] Start: 12-28-2022 [facility] Start: 12-27-2022 Following clinical p athway protocol [facility] Start: 12-27-2022 Assessment of risk o f venous thromboembolism [facility] Start: 12-27-2022 Catheterization of vein [facility] Start: 12-27-2022 Incentive spirometry [facility] Start: 12-27-2022 Inhalation therapy procedure [facility] Start: 12-27-2022 Insertion of cathete r into peripheral vein [facility] Start: 12-27-2022 Measuring intake and output [facility] Start: 12-27-2022 Neurological assessment [facility] Start: 12-27-2022 Providing care accor ding to standard [facility] Start: 12-27-2022 Provision of activit y privileges [facility] Start: 12-27-2022 Referral to occupati onal therapist [facility] Start: 12-27-2022 Referral to service [facility] Start: 12-27-2022 Speech therapy assessment [facility] Start: 12-27-2022 [facility] Start: 12-27-2022 Admission procedure [facility] Start: 11-15-2022 Patient discharge [facility] Start: 11-15-2022 Blood chemistry [facility] Start: 11-14-2022 Following clinical p athway protocol [facility] Start: 11-14-2022 Assessment of risk o f venous thromboembolism [facility] Start: 11-14-2022 Cardiac monitoring [facility] Start: 11-14-2022 Catheterization of vein [facility] Start: 11-14-2022 Continuous pulse oximetry [facility] Start: 11-14-2022 Elevation of head of bed [facility] Start: 11-14-2022 Exercises [facility] Start: 11-14-[address] anned interventions [facility] Start: 11-14-2022 Insertion of cathete r into peripheral vein [facility] Start: 11-14-2022 Measuring intake and output [facility] Start: 11-14-2022 MRI of brain without contrast Brain without Contrast [facility] Start: 11-14-2022 Notification of physician [facility] Start: 11-14-2022 Oxygen therapy [facility] Start: 11-14-2022 Patient referral to dietitian [facility] Start: 11-14-2022 Providing care accor ding to standard [facility] Start: 11-14-2022 Referral to occupati onal therapist [facility] Start: 11-14-2022 Referral to service [facility] Start: 11-14-2022 Speech therapy assessment [facility] Start: 11-14-2022 Tobacco use cessatio n education [facility] Start: 11-14-2022 [facility] Start: 11-14-2022 Verification routine [facility] Start: 11-14-2022 Admission procedure [facility] Start: 11-14-2022 Patient referral to dietitian [facility] Start: 09-18-2022 Patient referral [facility] Work Phone: Start: 09-18-2022 [place] and lambda light chains [facility] Start: 09-18-2022 Thiamine measurement [facility] Start: 09-17-2022 [facility] Start: 03-26-2020 Hepatitis B screening URINE ALBUMIN:CREATININE RATIO [facility] Start: 03-26-2020 Hepatitis B surface antibody level LDL CHOLESTEROL [facility] Start: 11-30-2019 Influenza vaccination INFLUENZA (#1) [facility] Start: 10-01-2019 [object Object] DIABETIC FOOT EXAM [facility] Start: 09-25-2019 HbA1c (Bld) [Mass fraction] HBA1C [facility] Start: 07-07-2018 Hepatitis C antibody , confirmatory test DILATED RETINAL EXAM [facility] Start: 07-20-2013 DTaP/Tdap/Td Vaccine s (1 - Tdap) DTaP/Tdap/Td Vaccines (1 - Tdap) [facility] Start: 12-05-2010 SHINGRIX VACCINE (2 of 3) CONTRERAS GRIX VACCINE (2 of 3) [facility] Start: 12-05-2010 Zoster Vaccines (2 of 3) Zoste r Vaccines (2 of 3) [facility] Start: 1995 RSV Immunization age d 60 or older (1 - 1-dose 60+ series) RSV Immunization aged 60 or older (1 - 1-dose 60+ series) [facility] Start: 1947 Depression Screening Depression Scre ening [facility] Start: 1935 Screening for osteoporosis Bone Dens ity Scan [facility] Albumin [Moles/volum e] in Serum or Plasma [facility] Albumin/Globulin ratio [facility] Anion gap in Serum or Plasma [facility] Anion gap measurement [facility] Ankle brachial pressure index [facility] Blood ammonia measurement [facility] Blood ammonia measurement [facility] BUN/Creatinine ratio [facility] BUN/Creatinine ratio [facility] Calcium [Mass/volume ] in Serum or Plasma [facility] Calcium [Mass/volume ] in Serum or Plasma [facility] Carbon dioxide, tota l [Moles/volume] in Central venous blood [facility] Carbon dioxide, tota l [Moles/volume] in Serum or Plasma [facility] Chloride [Moles/volu me] in Serum or Plasma [facility] Cholesterol [Mass/vo lume] in Serum or Plasma [facility] Cholesterol [Mass/vo lume] in Serum or Plasma [facility] Cholesterol in HDL [Mass/volume] in Serum or Plasma [facility] Cholesterol in HDL [Mass/volume] in Serum or Plasma [facility] Cholesterol in LDL [Mass/volume] in Serum or Plasma [facility] Creatinine [Mass/vol ume] in Serum or Plasma [facility] Creatinine [Moles/vo lume] in Serum or Plasma [facility] Electrophoresis: [id number] [facility] Electrophoresis: andrew ma globulin [facility] Erythrocyte mean cor puscular volume determination [facility] Globulin measurement [facility] Glucose [Mass/volume ] in Serum or Plasma [facility] Glucose [Mass/volume ] in Serum or Plasma [facility] Hematocrit [Volume F raction] of Blood [facility] Hematocrit [Volume F raction] of Blood [facility] Hemoglobin [Mass/vol ume] in Blood [facility] Hemoglobin [Mass/vol ume] in Blood [facility] IgA [Mass/volume] in Serum or Plasma [facility] IgG [Mass/volume] in Serum or Plasma [facility] IgM [Mass/volume] in Serum or Plasma [facility] [place]/lambda light c nat ratio [facility] Lambda light chains. free [Mass/volume] in Serum or Plasma [facility] Lamotrigine measurement [facility] Leukocytes [#/volume ] in Blood [facility] Leukocytes [#/volume ] in Blood [facility] Low density lipoprot ein cholesterol measurement [facility] Mean corpuscular hem oglobin concentration determination [facility] Mean corpuscular hem oglobin concentration determination [facility] Mean corpuscular hem oglobin determination [facility] Mean corpuscular hem oglobin determination [facility] Measurement of renal function [facility] Measurement of renal function [facility] MR Cervical spine [facility] MR Lumbar spine [facility] Neutrophil count [facility] Neutrophil percent differential count [facility] Patient Education [facility] Work Phone: Patient referral [facility] Work Phone: Platelets [#/volume] in Blood [facility] Platelets [#/volume] in Blood [facility] Potassium [Moles/vol ume] in Serum or Plasma [facility] Potassium measurement [facility] Protein electrophore sis panel - Serum or Plasma [facility] Red blood cell count [facility] Red blood cell count [facility] Red cell distributio n width determination [facility] Red cell distributio n width determination [facility] Serum chloride measurement [facility] Serum protein electrophoresis [facility] Sodium [Moles/volume ] in Serum or Plasma [facility] Sodium measurement [facility] Total cholesterol:HD L ratio measurement [facility] Triglycerides measurement [facility] Triglycerides measurement [facility] Troponin T.cardiac [Mass/volume] in Serum or Plasma by High sensitivity method [facility] Troponin T.cardiac [Mass/volume] in Serum or Plasma by High sensitivity method [facility] Urea nitrogen [Mass/ volume] in Serum or Plasma [facility] Urea nitrogen [Mass/ volume] in Serum or Plasma [facility] Urine culture Urine Culture [facility] Urine kappa light ch ain measurement [facility] US Carotid arteries [facility] VLDL cholesterol measurement [facility] VLDL [facility] Immunizations Immunization Date Immunization Notes Care Provider Fa cility 06-02-2020 Covid (Moderna) Dr. Rosemary mixon Work Phone: [facility] 05-05-2020 Covid (Moderna) Dr. Rosemary mixon Work Phone: [facility] 04-27-2019 influenza, high dose seasonal, preservative-free Allia Rashida [facility] 01-05-2018 influenza, high dose seasonal, preservative-free Jo Perez [facility] 12-12-2014 influenza, seasonal, injectable Allia Rashida [facility] 06-15-2014 pneumococcal conjuga te vaccine, 13 valent Allia Rashida [facility] 12-06-2013 influenza, seasonal, injectable Allia Rashida [facility] 07-19-2013 tetanus and diphther ia toxoids, adsorbed, preservative free, for adult use (2 Lf of tetanus toxoid and 2 Lf of diphtheria toxoid) Jo Perez [facility] 01-25-2013 influenza, seasonal, injectable Allia Rashida [facility] 01-13-2012 influenza, seasonal, injectable Alexia Rashida [facility] 02-11-2011 influenza, seasonal, injectable Allia Rashida [facility] 10-10-2010 zoster vaccine, live Jo Martinez [facility] 03-31-2006 pneumococcal polysaccharide vaccine, 23 valent [facility] Payers Date Payer Category Payer Self-pay [id number] 2023 Medicare [employer] MEDICARE UHC AARP MEDICARE ADVANTAGE [id number] 2023-Present [phone] [address] [address] [place] [address] Medicare HMO [id number] 2023 Unknown [id number] 2005 Unknown [id number] 1.2.840.504365.1.13.159.2.7.3 .704742.315 1935 Unknown [id number] 2.16.840.1.070034.3.579.2.278 1935 Unknown [id number] 2.16.840.1.760655.3.579.2.278 1935 Unknown [id number] 2.16840.1.834466.3.579.2.278 1935 Unknown [id number] 2.16.840.1.033706.3.579.2.278 1935 Unknown [id number] 2.16.840.1.648258.3.579.2.278 1935 Unknown [id number] 2.16.840.1.854002.3.579.2.278 1935 Unknown [id number] 2.16.840.1.598026.3.579.2.278 Medicare MEDICARE PART A B [id number] Unknown [id number] Unknown [id number] 2.16.840.1.180353.3.579.2.462 Unknown [id number] 2.16.840.1.578971.3.579.2.462 Unknown [id number] 2.16.840.1.654515.3.579.2.462 Unknown [id number] 2.16840.1.627253.3.579.2.462 Unknown [id number] 2.16.840.1.563661.3.579.2.462 Unknown [id number] 2.16.840.1.164132.3.579.2.462 Unknown [id number] 2.16.840.1.664258.3.579.2.462 Unknown [id number] 2.840.1.555526.3.579.2.462 Unknown [id number] 2.840.1.511026.3.579.2.462 Unknown [id number] 2.840.1.774081.3.579.2.462 Unknown [id number] 2.840.1.162227.3.579.2.462 Unknown [id number] 2.840.1.044456.3.579.2.462 Unknown [id number] 2.840.1.118185.3.579.2.462 Unknown [id number] 2.840.1.958799.3.579.2.462 Unknown [id number] 2.840.1.303251.3.579.2.462 Unknown [id number] 2.840.1.110242.3.579.2.462 Unknown [id number] 2.840.1.982287.3.579.2.462 Unknown [id number] 2.840.1.021176.3.579.2.462 Unknown [id number] 2.840.1.081293.3.579.2.462 Unknown [id number] 2.840.1.808811.3.579.2.462 Unknown [id number] 2.840.1.471220.3.579.2.462 Unknown [id number] 2.840.1.735851.3.579.2.462 Unknown [id number] 2.16.840.1.985421.3.579.2.462 Unknown [id number] 2.16.840.1.847033.3.579.2.462 Unknown [id number] 2.16.840.1.672772.3.579.2.462 Unknown [id number] 2.16.840.1.006962.3.579.2.462 Unknown [id number] 2.16.840.1.901307.3.579.2.462 Unknown [id number] 2.16.840.1.049866.3.579.2.462 Unknown [id number] 2.840.1.780840.3.579.2.462 Unknown [id number] 2.840.1.835239.3.579.2.462 Unknown [id number] 2.840.1.934041.3.579.2.462 Unknown [id number] 2.840.1.468279.3.579.2.462 Unknown [id number] 2.840.1.940293.3.579.2.462 Unknown [id number] 2.840.1.620801.3.579.2.462 Unknown [id number] 2.840.1.323804.3.579.2.462 Unknown [id number] 2.840.1.040720.3.579.2.462 Unknown [id number] 2.16.840.1.689298.3.579.2.462 Unknown [id number] 2.16.840.1.311410.3.579.2.462 Unknown [id number] 2.16.840.1.614624.3.579.2.462 Unknown [id number] 2.16.840.1.641367.3.579.2.462 Unknown [id number] 2.16840.1.503717.3.579.2.462 Unknown [id number] 2.16.840.1.886361.3.579.2.462 Unknown [id number] 2.16.840.1.782292.3.579.2.462 Social History Date Type Detail Facility Start: 05-13-2019 End: 09-11-2024 Tobacco smoking status NHIS Former smoker [facility] End: 03-20-2008 History of tobacco use Current smoker [facility] End: 03-20-2008 History of tobacco use Cigarette Smoker [facility] Start: 05-13-2019 End: 06-17-2023 Cigarettes smoked current (pack per day) - Reported [facility] Start: 05-13-2019 End: 06-18-2023 Tobacco use and exposure Never used [facility] Start: 05-13-2019 Alcohol intake 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 Start: 06-18-2023 Tobacco smoking stat us NHIS Never smoked tobacco [employer] Start: 06-17-2023 End: 06-18-2023 [facility] Has the Pledge[employer], [employer] or water [employer] threatened to shut off services in your home in past 12Mo No [facility] How often to you hav e a drink containing alcohol? Never [facility] How many standard drinks containing alcohol do you have on a typical day? Patient does not drink [facility] (I/We) worried wheth er (my/our) food would run out before (I/we) got money to buy more. Never true [employer] Start: 06-04-2024 End: 07-20-2024 Sex Female (finding) [facility] Medical Equipment Procedure Code Equipment Code Equipment [...] instructed [employer] Cancellous 30cc 1-8 - [id number] - [id number] Start: 06-18-2023 Plate Hum Dist 2.7/3.5 [id number]_imp Start: 06-18-2023 Plate Va Olcrn 2.7/3.5 2h R - [id number] Start: 06-18-2023 Plate Va M-D-Hum 2.7/3.5 1h L - [id number] Start: 06-18-2023 Screw Lck Va 2.2p82z-N T8 Rcs - [id number]_imp Start: 06-18-2023 Screw Lck Va 2.7x58 S-T T8 Rcs - [id number]_imp Start: 06-18-2023 Screw Lck Va 2.8x50m-G T8 Rcs - [id number]_imp Start: 06-18-2023 Screw Lck Va 2.5y95y-U T8 Rcs - [id number] 83967_imp Start: 06-18-2023 Screw Lck Va 2.9s20n-V T8 Rcs - [id number]_imp Start: 06-18-2023 Screw Lck Va 2.7x50 S-T T8 Rcs - [id number]_imp Start: 06-18-2023 Screw Crtx 3.5x22mm S-T - [id number]_imp Start: 06-18-2023 Screw Crtx 3.5x26mm S-T - [id number] Start: 06-18-2023 Screw Lck Va 2.7s08y-Q T8 Rcs - [id number] 83975_imp Start: 06-18-2023 Screw Lck Va 2.4c32b-J T8 Rcs - [id number] 83976_imp Start: 06-18-2023 Screw Lck Va 2.7x56 S-T T8 Rcs - [id number] 83956_imp Start: 06-18-2023 Screw Crtx 3.5x28mm S-T - [id number] 83957_imp Start: 06-18-2023 Screw Crtx 3.5x30mm S-T - [id number] 83958_imp Start: 06-18-2023 Screw Lck Va 2.8l58x-R T8 Rcs - [id number] 83959_imp Start: 06-18-2023 Screw Lck Va 2.5i75b-Y T8 Rcs - [id number] 83961_imp Start: 06-18-2023 Goals Date Patient Goal Desired Activity /State Functional Status Date Assessment Result Facility 09-11-2024 Functional status Ambulates [facility] Work Phone: 12-28-2022 Functional status Ambulates [facility] Work Phone: 11-15-2022 Functional status Chair [facility] Work Phone: Mental Status Date Assessment Result Facility 09-11-2024 Cognitive function Voice/Name [facility] Work Phone: 09-10-2024 Cognitive function Voice/Name [facility] Work Phone: 09-08-2024 Cognitive function Voice/Name [facility] Work Phone: 12-28-2022 Cognitive function Voice/Name [facility] Work Phone: 11-18-2022 Cognitive function Level Of Cons ciousness Awake;Alert;Appropriate [facility] Work Phone: 11-15-2022 Cognitive function Appropriate;Cooperativ e [facility] Work Phone: 11-14-2022 Cognitive function Voice/Name [facility] Work Phone: 11-14-2022 Cognitive function Voice/Name [facility] Work Phone: 09-08-2022 Cognitive function Awake;Alert;A ppropriate;Follow s Commands [facility] Work Phone: 02-11-2022 Cognitive function Awake;Alert;Appropriat e [facility] Work Phone: Clinical Notes 02-14-2007 to 09-11-2024 Note Date & Type Note Facility 09-11-2024 Discharge summary [facility] 09-11-2024 Procedure note [facility] 09-11-2024 Discharge summary [facility] 09-11-2024 Discharge summary Note Date/Time September 11, 2024 2:40pm [facility] Medical Records Department [address] [place] [address] Instructions for Home/Discharge Instructions 09/11/24 1214 MR#: [id number] Acct: [id number] Name: EZRA GONZALEZ Rep #:[id number] : 1935 89 From: Matthew carbajal DO [...] Daniel Leroy MD; Dr. Cindy Horn MD; eMagan Edmondson MD; Keyshawn Swan MD; Cara Batista DO; Robinson Mayorga MD; Aura Thurman DO; Ashu Leonard MD ~ Signed [facility] Work Phone: 1(863) 869-593106-14-2025 Discharge summary Author [facility] Note Date/Time September 11, 2024 3:14 pm [facility] Medical Records Department [address] [place] [address] Discharge Summary 09/11/24 1214 MR#: [id number] Acct: [id number] Name: EZRA GONZALEZ Rep #:[id number] : 1935 89 From: Matthew carbajal DO PCP: Dr. Kvng Ochoa, DO Status:ADM MARIELOS Location: [place] [address] 1 Providers Date of Admission: 09/10/24 Date of Discharge: 09/11/24 Primary Care Physician: Dr. Kvng Ochoa, Consultations 09/10/24 17:16 Consult: Tele-Neurology Routine Consulting [...] is an 89-year-old female who presented to [facility] ED on 09/10/2024 with dysarthria. Short hospital [...] (Auto) 72.3 H, Lymph % (Auto) 16.6 L,Hodgeman % (Auto) 9.1, Eos % (Auto) 1.2, [...] Clarity Clear, Urine pH 5.0, Ur Specific Hallowell 1.010, Urine Protein 30 H, Urine Glucose [...] Catch Urine Culture - Preliminary GNR lactose director medical writing Radiography Diagnostic Testing: Radiology Impression Head/Neck CTA [...] Atrophy and mild microvascular changes Reading Location: [facility] D/C Instructions DC O2, CPAP, BIPAP Needs [...] Self Care Charges/Coding Visit Charges Inpatient E&M: 03074 Disch Hosp >30min 09/11/24 1444 <Electronically signed [...] applicable): cc: Dr. Matthew Oro DO; Dr. Kvgn Ochoa DO ~* Signed [facility] Work Phone: 1(700) 965-290006-14-2025 Progress note Author Lenin Tamez [facility] Note Date/Time September 11, 2024 10:4 1am [facility] Medical Records Department [address] [place] [address] Progress Note - Neurology 09/11/24 1035 MR#: [id number] Acct: [id number] Name: EZRA GONZALEZ Rep #:[id number] : 1935 89 From: Lenin Morel PCP: Dr. Kvng Ochoa, DO Status:ADM MARIELOS Location: [place] [address] Assessment and Plan: Neuro Assessment/Plan Telestroke (Audio/Video Encounter) 89 y/o woman with h/o DM, HTN, Afib on coumadin (INR 2 days ago was 2.9 and 2.4 at [facility]) and seizure on lamictal (had last GTC on Friday) p/w transient dysarthria. History is obtained from patient. On my exam, NIHSS-0 and patient reports feeling better. She follows with Dr. Juarez with neurology. CT head- no acute intracranial process. 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 MRI brain - no acute stroke. LDL-100 Diagnosis: TIA Plan: Continue coumadin and statin. Check A1c. Follow up EEG. Continue lamictal.Follow up with neurology as an outpatient. 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 Sign off for now and please call [...] ICA 60% and diffuse narrowing of left TITLE SUPERVISOR. MRI brain - no acute stroke. [...] (Auto) 72.3 H, Lymph % (Auto) 16.6 L,Hodgeman % (Auto) 9.1, Eos % (Auto) 1.2, [...] Clarity Clear, Urine pH 5.0, Ur Specific Hallowell 1.010, Urine Protein 30 H, Urine Glucose [...] Catch Urine Culture - Preliminary GNR lactose director medical writing Radiography Diagnostic Testing: Radiology Impression Brain CT 09/10/24 13:55 IMPRESSION: CHRONIC CHANGES. NO ACUTE FINDINGS. Red Alert: Chronic changes. The critical information above was relayed directly by me by telephone to Teri Garcia on 09/10/2024 at 2:05 pm with readback verification. Reading Location: [id number] Head/Neck CTA 09/10/24 13:55 IMPRESSION: Calcific plaque [...] 3:01 pm with readback verification. Reading Location: [id number] Brain MRI 09/10/24 16:07 IMPRESSION: Atrophy and mild microvascular changes Reading Location: [facility] Rhythm Strip Rhythm Strip: A-fib Rate: 75 [...] and with change in RN caregiver. Freq: [id number] Protocol: Activity Type Activity Date Activity User E-sign Co-sign Detail Recorded Client Recorded Date Recorded By Document 09/11/24 09:08 YOVANY [id number] 09/11/24 09:08 YOVANY 09/11/24 09:08 NIH Stroke [...] Cosigner Signature (if applicable): CC: ~ Signed [facility] Work Phone: 1(547) 752-838906-14-2025 [facility] Medical Records Department [address] [place] [address] Discharge Summary 09/11/24 1214 MR#: [id number] Acct: [id number] Name: EZRA GONZALEZ Rep #: [id number] : 1935 89 From: Matthew Oro DO PCP: Dr. Kvng Ochoa, DO Status:ADM MARIELOS Location: [place] [address] Providers Date of Admission: 09/10/24 Date of [...] is an 89-year-old female who presented to [facility] ED on 09/10/2024 with dysarthria. Short hospital [...] and non- distended Anastasia (more content not included)...[facility]06-14-2025 Progress note [facility] Medical Records Department [address] [place] [address] Progress Note - Neurology 09/11/24 1035 MR#: [id number] Acct: [id number] Name: EZRA GONZALEZ Rep #:[id number] : 1935 89 From: Lenin Morel PCP: Dr. Kvng Ochoa, DO Status:ADM MARIELOS Location: [place] [address] Assessment and Plan: Neuro Assessment/Plan Telestroke (Audio/Video Encounter) 89 y/o woman with h/o DM, HTN, Afib on coumadin (INR 2 days ago was 2.9 and 2.4 at [place]) and seizure on lamictal (had last GTC on Friday) p/w transient dysarthria. History is obtained from patient. On my exam, NIHSS-0 and patient reports feeling better. She follows with Dr. uJarez with neurology. CT head- no acute intracranial process. 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 MRI brain - no acute stroke. LDL-100 Diagnosis: TIA Plan: Continue coumadin and statin. Check A1c. Follow up EEG. Continue lamictal.Follow up with neurology as an outpatient. 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 Sign off for now and please call [...] ICA 60% and diffuse narrowing of left TITLE SUPERVISOR. MRI brain - no acute stroke. [...] %(Auto) 72.3 H, Lymph % (Auto) 16.6 L,Hodgeman % (Auto) 9.1, Eos % (Auto) 1.2, [...] Clarity Clear, Urine pH 5.0, Ur Specific Hallowell 1.010, Urine Protein 30 H, Urine Glucose [...] Catch Urine Culture - Preliminary GNR lactose director medical writing Radiography Diagnostic Testing: Radiology Impression Brain CT 09/10/24 13:55 IMPRESSION: CHRONIC CHANGES. NO ACUTE FINDINGS. Red Alert: Chronic changes. The critical information above was relayed directly by me by telephone to Teri Garcia on 09/10/2024 at 2:05 pm with readback verification. Reading Location: [id number] Head/Neck CTA 09/10/24 13:55 IMPRESSION: Calcific plaque [...] 3:01 pm with readback verification. Reading Location: [id number] Brain MRI 09/10/24 16:07 IMPRESSION: Atrophy and mild microvascular changes Reading [facility] Rhythm Strip Rhythm Strip: A-fib Rate: 75 [...] and with change in RN caregiver. Freq: [id number] Protocol: Activity Type Activity Date Activity User E-sign Co-sign Detail Recorded Client Recorded Date Recorded By Document 09/11/24 09:08 YOVANY [id number] 09/11/24 09:08 YOVANY 09/11/24 09:08 NIH Stroke [...] Cosigner Signature (if applicable): CC: ~ Signed [facility]06-13-2025 History and physical note Author Matthew Oro [facility] Note Date/Time September 10, 2024 5:27 pm [facility] Medical Records Department [address] [place] [address] H&P Exam - Hospitalist 09/10/24 1603 MR#: [id number] Acct: [id number] Name: EZRA GONZALEZ Rep #:[id number] : 1935 89 From: Matthew carbajal DO PCP: Dr. Kvng Ochoa, DO Status:ADM MARIELOS Location: [place] [address] HPI - General General Date of Admission: 09/10/24 Date of Service: 09/10/24 Chief Complaint: Dysarthria HPI Narrative EZRA GONZALEZ, is a 89 F who presented to [facility] ED on 09/10/2024 with dysarthria. Patient lives at assisted living at [place]. Has history of seizures and is on [...] acute concerns at this time. 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 1. Episode [...] 55 minutes. Charges/Coding Visit Charges Inpatient E&M: 48724 Init Hosp L2 09/10/24 1727 <Electronically signed by Matthew Oro DO> Cosigner Signature (if applicable): CC: Dr. Matthew Oro DO; Dr. Kvng Ochoa DO~ Signed [facility] Work Phone: 1(343) 292-294906-13-2025 Discharge summary Author [facility] Note Date/Time September 10, 2024 4:17 pm [facility] Medical Records Department [address] [place] [address] Emergency Department Summary 09/10/24 MR#: [id number] Acct: [id number] Name: EZRA GONZALEZ Rep #:[id number] : 1935 89 From: Teri Echeverria PCP: [...] son Wilfredo (her eldest son) phone number [phone]. He states that she follows with Dr. 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 Level of Consciousness: [...] No aphasia; normal 10. Dysarthria: 1 = Zhvn-xo-odvxzkln dysarthria; 11. Extinction and Inattention: 0 - [...] problems, contact your Primary Care Provider. Call [employer] [facility] ([phone]) or report to the closest Emergency Room. Call 911 if necessary. 09/10/24 1617 <Electronically signed by Teri Garcia DO> Cosigner Signature (if applicable): CC: Dr. 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 Work Phone: 1(839) 113-596506-13-2025 History and physical note [facility] Medical Records Department [address] [place] [address] H&P Exam - Hospitalist 09/10/24 1603 MR#: [id number] Acct: [id number] Name: EZRA GONZALEZ Rep #:[id number] : 1935 89 From: Matthew carbajal DO PCP: Dr. Kvng Ochoa DO Status:ADM MARIELOS Location: [place] [address] HPI - General General Date of Admission: 09/10/24 Date of Service: 09/10/24 Chief Complaint: Dysarthria HPI Narrative EZRA GONZALEZ, is a 89 F who presented to [facility] ED on 09/10/2024 with dysarthria. Patient lives at assisted living at [place]. Has history of seizures and is on [...] acute concerns at this time. 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 Reading Location: [id number] Head/Neck CTA 09/10/24 13:55 IMPRESSION: Calcific plaque at the origin of the right and left internal carotid arteries causing 60% stenosis. Diffuse narrowing of the left posterior cerebral artery as well as the distal branches. Red Alert: Narrowing of Left Pos this is unchanged. The critical information above was relayed directly by me by telephone to KervinadarshTeri on 09/10/2024 at 3:01 pm with readback verification. Reading Location: [id number] Assessment & Plan Assessment/Plan (1) Difficulty with speech: PLAN: Plan Patient is an 89-year-old female who presented to [facility] ED on 09/10/2024 with dysarthria. 1. Episode [...] 55 minutes. Charges/Coding Visit Charges Inpatient E&M: 05942 Init Hosp L2 09/10/24 1727 Cosigner Signature (if applicable): CC: Dr. Matthew Oro, DO; Dr. Kvng Ochoa, DO~ Signed [facility]06-13-2025 Discharge summary [facility] Medical Records Department [address] [place] [address] Emergency Department Summary 09/10/24 MR#: [id number] Acct: [id number] Name: EZRA GONZAELZ Rep #:[id number] : 1935 89 From: Teri Echeverria PCP: [...] son Wilfredo (her eldest son) phone number [phone]. He states that she follows with Dr. 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 Reading Location: [id number] Head/Neck CTA 09/10/24 13:55 IMPRESSION: Calcific plaque [...] 3:01 pm with readback verification. 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 Level of Consciousness: [...] No aphasia; normal 10. Dysarthria: 1 = Wjsd-su-mpssyhxa dysarthria; 11. Extinction and Inattention: 0 - [...] your Primary Care Provider. Call [facility] ([phone]) or report tothe closest Emergency Room. Call 911 if necessary. 09/10/24 1617 Cosigner Signature (if applicable): CC: Dr. Kvng Ochoa DO ~ Signed [facility]06-13-2025 Radiology Diagnostic study note [facility] Imaging Services [address] [place], [place] [address] STROKE CTA Head AND Neck W/Con MR#: [id number] Acct: [id number] Name: EZRA GONZALEZ Rep #: [id number] : 1935 F 89 From: Jian Gipson MD PCP: Dr. Kvng Ochoa DO Status: REG ER Study:STROKE CTA Head AND Neck W/Con Date of Exam: 09/10/24 Exam# [id number] Ordering Dr: Adeel Garcia DO PROCEDURE: STROKE [...] RIGHT Vertebral: Unremarkable. LEFT Vertebral: Unremarkable. Anatomy: Ramona of Monique anatomy is normal. Aneurysm or [...] 3:01 pm with readback verification. Reading Location: [id number] CC: Dr. Teri Garcia DO; Dr. Kvng Ochoa DO ~ Manager Gas: Signed [facility]06-13-2025 Radiology Diagnostic study note [facility] Imaging Services [address] [place] [place], [place] [address] STROKE Brain/Head without Cont MR#: [id number] Acct: [id number] Name: EZRA GONZALEZ Rep #: [id number] : 1935 F 89 From: Jian Gipson MD PCP: Dr. Kvng Ochoa DO Status: REG ER Study:STROKE Brain/Head without Cont Date of Exam: 09/10/24 Exam# [id number] Ordering Dr: Adeel Garcia DO PROCEDURE: STROKE [...] 2:05 pm with readback verification. Reading Location: [id number] CC: Dr. Teri Garcia DO; Dr. 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 Glucose is slight [id number] with a normal CO2 anion gap. Labs: Laboratory Results - last 24 hr 09/08/24 12:50 WBC 13.6 H RBC 4.40 Hgb 13.8 Hct 41.4 MCV 94.1 MCH 31.4 MCHC 33.3 RDW Std Deviation 45.2 H RDW Coeff of Sumeet 13.2 Plt Count 326 MPV 10.8 Immature Gran % (Auto) 0.400 Neut % (Auto) 75.9 H Lymph % (Auto) 16.2 L Hodgeman % (Auto) 6.6 Eos % (Auto) 0.7 [...] with her neurologist Dr. Juarez Print Language: Malawian Disposition Disposition: Home, Self Care What to do if you have Problems For any increased pain, shortness of breath, bleeding, nausea or vomiting, chestpain, or any unexpected problems, contact your Primary Care Provider. Call [facility] ([phone]) or report tothe closest Emergency Room. Call 911 if necessary. 09/08/24 1516 Cosigner Signature (if applicable): CC: Dr. 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 Glucose is slight [id number] with a normal CO2 anion gap. Labs: Laboratory Results - last 24 hr 09/08/24 12:50 WBC 13.6 H RBC 4.40 Hgb 13.8 Hct 41.4 MCV 94.1 MCH 31.4 MCHC 33.3 RDW Std Deviation 45.2 H RDW Coeff of Sumeet 13.2 Plt Count 326 MPV 10.8 Immature Gran % (Auto) 0.400 Neut % (Auto) 75.9 H Lymph % (Auto) 16.2 L Hodgeman % (Auto) 6.6 Eos % (Auto) 0.7 [...] with her neurologist Dr. Juarez Print Language: Malawian Disposition Disposition: Home, Self Care What to do if you have Problems For any increased pain, shortness of breath, bleeding, nausea or vomiting, chestpain, or any unexpected problems, contact your Primary Care Provider. Call [facility] ([phone]) or report to the closest Emergency Room. Call 911 if necessary. 09/08/24 1516 <Electronically signed by Anoop Blackmon MD> Cosigner Signature (if applicable): CC: Dr. Kvng Ochoa MD ~ Signed [facility] Work Phone: 1(810) 745-542304-03-2025 Evaluation note* Diagnosis Onset Date Resolution Status Admit Date Longstanding persistent atrial fibrillation acute July 01 10:35am Essential (primary) hypertension chronic July 01, 2024 10:35am History of coronary artery stent placement February 14, 2007 resolved July 01 025 10:35am [facility] Work Phone: 1(244) 274-400904-03-2025 Evaluation note* Diagnosis Onset Date Resolution Status Admit Date Longstanding persistent atrial fibrillation acute July 01, 025 10:35am Essential (primary) hypertension chronic July 01, 2024 10:35am History of coronary artery stent placement February 14, 2007 resolved July 01, 025 10:35am Difficulty with speech acute [facility] 2024 4:03pm [facility] Work Phone: 1([phone]) 187-743804-03-2025 Evaluation note* Diagnosis Onset Date Resolution Status Admit Date Longstanding persistent atrial fibrillation acute July 01, 2 025 10:35am Essential (primary) hypertension chronic July 01, 2024 10:35am History of coronary artery stent placement February 14, 2007 resolved July 01, 025 10:35am Difficulty with speech acute [facility] 2024 4:03pm 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 Work Phone: 1([phone]) 239-874504-03-2025 Evaluation note* Diagnosis Onset Date Resolution Status Admit Date Longstanding persistent atrial fibrillation acute July 01, 025 10:35am Essential (primary) hypertension chronic July 01, 2024 10:35am History of coronary artery stent placement February 14, 2007 resolved July 01 025 10:35am Difficulty with speech resolved [facility] 2024 4:03pm 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 2:04pm [facility] Work Phone: [phone]) 638-645002-10-2025 Evaluation note* Diagnosis Onset Date Resolution Status Admit Date Dementia acute May 10, 2024 2:34pm Epilepsy acute May 10, 2024 2:34pm Transient ischemic attack resolved May 10, 2024 2:34pm [facility] Work Phone: 1([phone]) 188-517202-10-2025 Evaluation note* Diagnosis Onset Date Resolution Status Admit Date Dementia acute May 10, 2024 2:34pm Epilepsy acute May 10, 2024 2:34pm Transient ischemic attack resolved May 10, 2024 2:34pm Longstanding persistent atrial fibrillation acute July 01 025 10:35am Essential (primary) hypertension chronic July 01, 2024 10:35am History of coronary artery stent placement February 14, 2007 resolved July 01, 2024 10:35am [facility] Work Phone: 1([phone]) 941-569503-22-2024 NoteStart PACC Note Home Health Referral Educated patient on Home Care and services available. Patient offered choice of available HHC and agreeable to PT/OT services with [facility]. Care [...] is noted as yes - consider a LIGHTING ADVISER evaluation once the patient returns home. START PATIENT REGISTRATION INFORMATION Order Information Order Signing Physician: Connie Perez APRN * Service Ordered RN ?: No Service Ordered PT ?: Yes Service Ordered OT ?: Yes Service Ordered ST ?: No Service Ordered LIGHTING ADVISER?:No Service Ordered BOY'S ADVISER?: No Following Physician: ALEXANDRA HAGEN Following Physician Overseeing Physician: ALEXANDRA HAGEN (Required for Residents only) Agreeable to Follow? No Date/Time of Call 06/20/23 2:40 PM, Spoke with: BRYAN FOR OFFICE-CONFIRMED WITH JOSEP THIS IS HER PHYSICAN AND CAN SEE RECENT NOTES IN [facility] Care Coordination Same Day SOC?: No Primary Care Physician: ALEXANDRA HAGEN Primary Care Physician Primary Care Physician Address: [address] [facility] [address] [facility] [address] Visit Instructions: N/A Service Discharge Location Type: Assisted Living Service Facility Name: [facility] Floor Facility: N/A Service Room No: 105 Demographics Patient Last Name: Lisa Patient First Name: Ezra Language/Communication Barrier: NONE Service Address: [address] [place] [address] [address] Service City: [facility] ST: [place] Service ZIP: [address] Service (home) Other phone numbers: No relevant phone numbers on file. Emergency Contact: Extended Emergency Contact Information Primary Emergency Contact: Patito [place] Mobile Relation: Son Annual Giving Officer needed? No Secondary Emergency Contact: Ty [place] Mobile Relation: Son Admission Information Admit Date: 06/16/2023 Patient status at discharge: Inpatient Admitting Diagnosis: Closed displaced fracture of medial condyle of right humerus, initial encounter [S43.119S] Caregiver Information Caregiver First Name: NA Caregiver Last Name: NA Caregiver Relationship to Patient NA Caregiver Phone Number: NA Caregiver Notes: N/A HITDeminos-[employer] List No END PATIENT REGISTRATION INFORMATION Pt [...] medications. Discharge Date: 06/20/23 Referral Source-PACC: (Hospital/Unit): [facility] / E7-707/E7-707 A End PACC [facility]03-22-2024 History of Present illness Narrative* Juanjo Villalba RN - 06/20/2023 3:51 PM EDT Dc via DM cot to [facility] with all belongings * Juanjo Villalba RN - 06/20/2023 3:01 PM EDT Called report to [facility] at [facility] * Dc Lomabrdi - 06/20/2023 2:26 PM EDT [facility] Anticoagulation Management Service (RIA) Inpatient Warfarin Consult HPI: Ezra Gonzalez is a 87 y.o. female admitted on 06/16/2023 for Closed displaced fracture of medial condyle of right humerus, initial encounter [S42.579R] History reviewed. No pertinent past medical history. [...] patient can be classified as high risk ([id number] = 8). 2. Monitor for s/s of bleeding and drug interactions. Will adjust dose accordingly 3. RIA will manage while inpatient Dc Lombardi JpD Candidate Toshia Sanches, JpD, BCPS RIA is available daily [phone] via daysoft Chat. If no response on daysoft Chat then please page [phone]. Electronically signed by Enedelia Sanches [facility] at 06/20/2023 2:41 PM EDT * Shayne Fonseca MD - 06/20/2023 6:05 [...] off at this time. Please page resident regional driver on Secure Chat with concerns or should [...] -Motor function intact to AIN/PIN/Ulnar * Maryanne Thien, PT - 06/19/2023 3:11 PM EDT Images from the original note were not included. PHYSICAL THERAPY [facility] Initial Evaluation Name/MRN: Ezra Gonzalez ([id number]) Evaluation Date: 06/19/2023 Date of : 1935 Admission Date: 06/16/2023 1:38 PM Age: 87 y.o. Room/Bed: [facility]707/[facility] A Discharge Recommendation: Home with Home health PT (return to [place]) Equipment Needed: No Assessment IMPRESSION: 87 y.o. pt admitted to [facility] for closed fracture RUE, s/p ORIF R humerus 06/17. They were Min A for bed mobility, Min A for transfers, and Min A for ambulation. Pt limited d/t balance. If from [place] where she can receive Min A for all ADLs and mobility. Would recommend return to CT and [facility] PTat discharge. Diagnosis: closed fracture RUE, s/p [...] correction Ambulation Ambulation 1 Assistive device(s) used: BOY'S ADVISER Assist level: Min Assist Distance (ft): 15' [...] of Care supervision is transferred to a [facility] Therapy Services Physical Therapist. Goals and/or treatment plan was established in collaboration with patient/family/other representatives. * Enedelia Sanches, [facility] - 06/19/2023 1:50 PM EDT [facility] Anticoagulation Management Service (RIA) Inpatient Warfarin Consult HPI: Ezra Gonzalez is a 87 y.o. female admitted on 06/16/2023 for Closed displaced fracture of medial condyle of right humerus, initial encounter [S42.923T] History reviewed. No pertinent past medical history. [...] patient can be classified as high risk ([id number] = 8). 2. Monitor for s/s of bleeding and drug interactions. Will adjust dose accordingly 3. RIA will manage while inpatient Dc Lombardi, JpD Candidate Jp BolanosD, BCPS RIA is available daily [phone] via daysoft Chat. If no response on daysoft Chat then please page [phone]. * Kavon Diallo, OT - 06/19/2023 11:54 AM EDT Images from the original note were not included. OCCUPATIONAL THERAPY [facility] Initial Evaluation Name/MRN: Ezra Gonzalez ([id number]) Evaluation Date: 06/19/2023 Date of : 1935 Admission Date: 06/16/2023 1:38 PM Age: 87 y.o. Room/Bed: [facility] A Discharge Recommendation: Continue to assess pending [...] of Care supervision is transferred to a [facility] Therapy Services Occupational Therapist. Goals and/or treatment plan was established in collaboration with patient/family/other representatives. * JANNETTE Hall CNP - 06/19/2023 9:52 AM EDT Images from the original note were not included. Hospitalist Progress Note 06/19/2023 Subjective: Admit Date: 06/16/2023 PCP: No primary care provider on file. Room#: E7-838/E7-005 A BRIEF HOSPITAL COURSE: Ezra is a [...] Emergency Contact: Patito [place] Mobile Relation: Son Annual Giving Officer needed? No Secondary Emergency Contact: MariiaTy collins Mobile Relation: Son JANNETTE Hall CNP [facility] Medicine [facility] * Huma Tavarez MD - 06/19/2023 6:14 [...] be monitored and followed by the diet corrosion technician. NICA Watts * Louisa Cespedes OT - 06/18/2023 8:26 AM EDT Images from the original note were not included. OCCUPATIONAL THERAPY [facility] Name/MRN: Ezra Gonzalez ([id number]) Date: 06/18/2023 OT eval and treat order received. Patient chart reviewed. Per Ortho note, Plan for ORIF od R distal humerus. Will hold evaluation till after surgery. Louisa Cespedes OT * JANNETTE Hall CNP - 06/18/2023 8:00 AM EDT Images from the original note were not included. Hospitalist Progress Note 06/18/2023 Subjective: Admit Date: 06/16/2023 PCP: No primary care provider on file. Room#: V1-155/O7-656 A BRIEF HOSPITAL COURSE: Ezra is a [...] Primary Emergency Contact: GillesrodriguePatito Mobile Relation: Son Annual Giving Officer needed? No Secondary Emergency Contact: GillesTy husain Mobile Relation: Son JANNETTE Hall CNP Division of Hospitalist Medicine [facility] * Maryanne Neumann PT - 06/18/2023 7:27 AM EDT Images from the original note were not included. PHYSICAL THERAPY [facility] Name/MRN: Ezra Gonzalez ([id number]) Date: 06/18/2023 PT orders received and chart [...] tomorrow, 06/17. Ok for diet today. NPO @NC. Keep splint C/D/I. Evette Viera MD Orthopaedic Surgery, PGY-5 [phone] * Connie Perez APRN - [facility] - 06/17/2023 7:46 AM EDT Images from [...] Primary Emergency Contact: BereketPatito Mobile Relation: Son Annual Giving Officer needed? No Secondary Emergency Contact: GillesTy husain Mobile Relation: Son JANNETTE Hall CNP Division of Hospitalist Medicine Acute care [facility] * Shayne Fonseca MD - 06/17/2023 [...] + AIN/PIN/ulnar nerve functions documented in this [facility]03-22-2024 Miscellaneous Notes* Care Coordination - Unknown Case Management - 06/20/2023 2:58 PM EDT Patient Choice Patient Name: EZRA GONZALEZ Date of : 1935 All Providers Sent Referral Name: [employer] [facility] Phone: [phone] Address: [address] [place] [address] * Home Care - Vivian Bills RN - 06/20/2023 2:40 PM EDT Start PACC Note Home Health Referral Educated patient on Home Care and services available. Patient offered choice of available HHC and agreeable to PT/OT services with [facility] - Home Care. Care [...] is noted as yes - consider a LIGHTING ADVISER evaluation once the patient returns home. START PATIENT REGISTRATION INFORMATION Order Information Order Signing Physician: Connie Perez APRN * Service Ordered RN ?: No Service Ordered PT ?: Yes Service Ordered OT ?: Yes Service Ordered ST ?: No Service Ordered LIGHTING ADVISER?:No Service Ordered BOY'S ADVISER?: No Following Physician: ALEXANDRA HAGEN Following Physician Overseeing Physician: ALEXANDRA HAGEN (Required for Residents only) Agreeable to Follow? No Date/Time of Call 06/20/23 2:40 PM, Spoke with: BRYAN FOR OFFICE-CONFIRMED WITH JOSEP THIS IS HERPHYSICAN AND CAN SEE RECENT NOTES IN EPIC Care Coordination Same Day SOC?: No Primary Care Physician: ALEXANDRA HAGEN Primary Care Physician Primary Care Physician Address: [address] [place] [address] [address] / [facility] [id number] Visit Instructions: N/A Service Discharge Location Type: Assisted Living Service Facility Name: [facility] Floor Facility: N/A Service Room No: 105 Demographics Patient Last Name: Lisa Patient First Name: Ezra Language/Communication Barrier: NONE Service Address: [address] Service City: [facility] ST: [place] Service ZIP: [address] Service (home) Other phone numbers: No relevant phone numbers on file. Emergency Contact: Extended Emergency Contact Information Primary Emergency Contact: Patito Cuab Mobile Relation: Son Annual Giving Officer needed? No Secondary Emergency Contact: Ty [place] Mobile Relation: Son Admission Information Admit Date: 06/16/2023 Patient status at discharge: Inpatient Admitting Diagnosis: Closed displaced fracture of medial condyle of right humerus, initial encounter [S44.722J] Caregiver Information Caregiver First Name: NA Caregiver [...] medications. Discharge Date: 06/20/23 Referral Source-PACC: (Hospital/Unit): [facility] / E7-707/E7-707 A End PACC [...] pt order lunch. Notified TONIO, RN and cracking unit operator. . * Care Coordination - Shikha Gray RN - 06/20/2023 11:01 AM EDT I SPOKE WITH DONOVAN, REPRODUCTION MACHINE LOADER AT [facility]. THEY CAN TAKE PT BACK TODAY. THEY CAN PROVIDE TRANSPORTATION BACK TO FACILITY AROUND 3 PM. AWARE PT WILL NEED PT AT FACILITY, THEY USE [facility], DID LET LIAISON NOW. WENT [...] PM EDT Date: 06/16/2023 - 06/18/2023 Location: [facility] OR Name: Ezra Gonzalez, : 1935, Diagnosis Pre-op Diagnosis * Closed displaced fracture of medial condyle of right humerus, initial encounter [S42.461A] Post-op Diagnosis * Closed displaced fracture of medial condyle of right humerus, initial encounter [S42.461A] Procedures OPEN REDUCTION INTERNAL FIXATION RIGHT DISTAL HUMERUS 60648 - [place] OPTX HUMERAL SHFT FX W/PLATE/SCREWS W/WOCERCLAGE Surgeons * Benitez Givens - Primary Procedure Summary Anesthesia: * No anesthesia type entered * ASA: III Estimated Blood Loss: Minimal Drains: * None in log * Staff: Prosthetics Technician: Vivian Herrera RN Scrub Person: Linda Alvarez [...] Limits Permission given to speak with patient guest service representative/caregiver as indicated: No Confirmation of Payer with patient/family: Yes Payer Name: [facility] : No Confirmation of Primary Care Physician: Confirmed Primary Caregiver: Self If assistance needed, confirmed caregiver ready, willing and able to care for patient at discharge: Confirmed with: Living Arrangements Current Residence: Number of Floors Number of Entry Steps: Bed/Bath Levels: Facility: Assisted Living Facility Name: [facility] Plan to Return: Yes Lives with: Alone [...] rest and pain control documented in this [facility]03-22-2024 Note* Care Coordination - Unknown Case Management - 06/20/2023 2:58 PM EDT Patient Choice Patient Name: EZRA GONZALEZ Date of : 1935 All Providers Sent Referral Name: [facility] Phone: [phone] Address: [address] [place] [address] [facility]gkazp13[facility]74-0659 Note* Care Coordination - Unknown Case Management - 06/20/2023 2:58 PM EDT Patient Choice Patient Name: EZRA GONZALEZ Date of : 1935 All Providers Sent Referral Name: [facility] Phone: [phone] Address: [address] [place] [address] [employer] [id number] Note* Home Care - Vivian Bills RN - 06/20/2023 2:40 PM EDT Start PACC Note Home Health Referral Educated patient on Home Care and services available. Patient offered choice of available HHC and agreeable to PT/OT services with [facility] - Home Care. Care Types: [...] is noted as yes - consider a LIGHTING ADVISER evaluation once the patient returns home. START PATIENT REGISTRATION INFORMATION Order Information Order Signing Physician: Connie Perez APRN * Service Ordered RN ?: No Service Ordered PT ?: Yes Service Ordered OT ?: Yes Service Ordered ST ?: No Service Ordered LIGHTING ADVISER?:No Service Ordered BOY'S ADVISER?: No Following Physician: ALXEANDRA HAGEN Following Physician Overseeing Physician: ALEXANDRA HAGEN (Required for Residents only) Agreeable to Follow? No Date/Time of Call 06/20/23 2:40 PM, Spoke with: BRYAN FOR OFFICE-CONFIRMED WITH JOSEP THIS IS HERPHYSICAN AND CAN SEE RECENT NOTES IN EPIC Care Coordination Same Day SOC?: No Primary Care Physician: ALEXANDRA HAGEN Primary Care Physician Primary Care Physician Address: [address] / [facility] [address] Visit Instructions: N/A Service Discharge Location Type: Assisted Living Service Facility Name: [facility] Floor Facility: N/A Service Room No: 105 Demographics Patient Last Name: Lisa Patient First Name: Ezra Language/Communication Barrier: NONE Service Address: [address] [place] [address] [address] Service City: [facility] ST: [place] Service ZIP: [address] Service (home) Other phone numbers: No relevant phone numbers on file. Emergency Contact: Extended Emergency Contact Information Primary Emergency Contact: BereketPatito Mobile Relation: Son Annual Giving Officer needed? No Secondary Emergency Contact: MariiadennisTy Mobile Relation: Son Admission Information Admit Date: 06/16/2023 Patient status at discharge: Inpatient Admitting Diagnosis: Closed displaced fracture of medial condyle of right humerus, initial encounter [S42.461A] Caregiver Information Caregiver First Name: NA Caregiver Last Name: NA Caregiver Relationship to Patient NA Caregiver Phone Number: NA Caregiver Notes: N/A [employer] List No END PATIENT REGISTRATION INFORMATION Pt [...] medications. Discharge Date: 06/20/23 Referral Source-PACC: (Hospital/Unit): [facility] / E7-707/E7-707 A End PACC Note [id number] [facility]* Home Care - Vivian Bills RN - 06/20/2023 2:40 PM EDT Start PACC Note Home Health Referral Educated patient on Home Care and services available. Patient offered choice of available HHC and agreeable to PT/OT services with [facility] - Home Care. Care [...] is noted as yes - consider a LIGHTING ADVISER evaluation once the patient returns home. START PATIENT REGISTRATION INFORMATION Order Information Order Signing Physician: Connie Perez APRN * Service Ordered RN ?: No Service Ordered PT ?: Yes Service Ordered OT ?: Yes Service Ordered ST ?: No Service Ordered LIGHTING ADVISER?:No Service Ordered BOY'S ADVISER?: No Following Physician: ALEXANDRA HAGEN Following Physician Overseeing Physician: ALEXANDRA HAGEN (Required for Residents only) Agreeable to Follow? No Date/Time of Call 06/20/23 2:40 PM, Spoke with: LVM FOR OFFICE-CONFIRMED WITH JOSEP THIS IS HERPHYSICAN AND CAN SEE RECENT NOTES IN [facility] Care Coordination Same Day SOC?: No Primary Care Physician: ALEXANDRA HAGEN Primary Care Physician Primary Care Physician Address: [address] [place] [address] [address] / [place] [phone] Visit Instructions: N/A Service Discharge Location Type: Assisted Living Service Facility Name: [facility] Service Floor Facility: N/A Service Room No: 105 Demographics Patient Last Name: Lisa Patient First Name: Ezra Language/Communication Barrier: NONE Service Address: [address] [place] [address] [address] Service City: [facility] ST: [place] Service ZIP: [address] Service (home) Other phone numbers: No relevant phone numbers on file. Emergency Contact: Extended Emergency Contact Information Primary Emergency Contact: Patito Cuba Mobile Relation: Son Annual Giving Officer needed? No Secondary Emergency Contact: Ty [place] Mobile Relation: Son Admission Information Admit Date: 06/16/2023 Patient status at discharge: Inpatient Admitting Diagnosis: Closed displaced fracture of medial condyle of right humerus, initial encounter [S42.461A] Caregiver Information Caregiver First Name: NA Caregiver Last Name: NA Caregiver Relationship to Patient NA Caregiver Phone Number: NA Caregiver Notes: N/A [employer] List No END PATIENT REGISTRATION INFORMATION Pt [...] medications. Discharge Date: 06/20/23 Referral Source-PACC: (Hospital/Unit): [facility] / E7-707/E7-707 A End PACC Note [facility] [id number] NoteHospitalist Discharge Summary Ezra Gonzalez : 1935 [...] primary care provider Schedule (more content not included)...[facility]03-22-2024 Note* Care Coordination - SELINA Magaña - [...] pt order lunch. Notified TONIO RN and cracking unit operator. . [facility] HospitalHevops30-75-4896 Note* Care Coordination - SELINA Magaña - [...] pt order lunch. Notified JAYME ELIZALDE and cracking unit operator. . [facility] HospitalIqjrmy40-04-6316 Note* Care Coordination - Shikha Gray RN - 06/20/2023 11:01 AM EDT I SPOKE WITH DONOVAN, REPRODUCTION MACHINE LOADER AT [facility]. THEY CAN TAKE PT BACK TODAY. THEY CAN PROVIDE TRANSPORTATION BACK TO FACILITY AROUND 3 PM. AWARE PT WILL NEED PT AT FACILITY, THEY USE [facility], DID LET HC LIAISON NOW. [...] SECURE CHAT WITH CONNIE PEREZ REGARDING THIS. [facility] HospitalAraswq03-21-1107 Note* Care Coordination - Shikha Gray RN - 06/20/2023 11:01 AM EDT I SPOKE WITH DONOVAN, REPRODUCTION MACHINE LOADER AT [facility]. THEY CAN TAKE PT BACK TODAY. THEY CAN PROVIDE TRANSPORTATION BACK TO FACILITY AROUND 3 PM. AWARE PT WILL NEED PT AT FACILITY, THEY USE [facility] DID LET HC LIAISON NOW. WENT TO [...] SECURE CHAT WITH CONNIE PEREZ REGARDING THIS. [facility] HospitalIairnq75-49-9657 Hospital course Narrative* Connie Perez, 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 - 06/20/2023 10:18 AM EDT Images from [...] as possible for a visit As needed [facility] Orthopedics Go to Appointment scheduled 06/26/23 at 10:[address] Givens. [address] [facility] Complexity of Follow up: [x] Moderate Complexity: follow up within 7-14 calendar days (90779) [] Severe Complexity: follow up within 7 calendar days (16369) Follow up Testing, Pending results or Referrals [...] time frame. Signed: Connie Perez APRN - [facility] Division [facility] Medicine [facility] 06/20/2023, 1:11 PM documented in this [facility]03-22-2024 NoteDepartment of Orthopedic Surgery Progress Note ASSESSMENT [...] off at this time. Please page resident regional driver on Secure Chat with concerns or should [...] in all distributions -Motor function intact to [facility] [id number] Note PHYSICAL THERAPY [facility] Initial Evaluation Name/MRN: Ezra Gonzalez ([id number]) Evaluation Date: 06/19/2023 Date of : 1935 Admission Date: 06/16/2023 1:38 PM Age: 87 y.o. Room/Bed: -707/[facility]707 A Discharge Recommendation: Home with Home health PT (return to [place]) Equipment Needed: No Assessment IMPRESSION: 87 y.o. pt admitted to [facility] for closed fracture RUE, s/p ORIF R humerus 06/17. They were Min A for bed mobility, Min A for transfers, and Min A for ambulation. Pt limited d/t balance. If from CT where she can receive Min A for all ADLs and mobility. Would recommend return to CT and [facility] PT at discharge. Diagnosis: closed fracture RUE, [...] correction Ambulation Ambulation 1 Assistive device(s) used: BOY'S ADVISER Assist level: Min Assist Distance (ft): 15' [...] eval, 1 FA) Dillon (more content not included)...[facility]03-21-2024 Note* Care Coordination - Shikha Gray RN - 06/19/2023 2:05 PM EDT DAY #1 S/P ORIF OF RIGHT ARM. WAITING FOR PT/OT EVALS FOR DC PLANNING. [facility] HospitalSunhmu91-87-0902 Note* Care Coordination - Shikha Gray RN - 06/19/2023 2:05 PM EDT DAY #1 S/P ORIF OF RIGHT ARM. WAITING FOR PT/OT EVALS FOR DC PLANNING. [facility] HospitalByftdm80-61-0388 NoteOCCUPATIONAL THERAPY [facility] Initial Evaluation Name/MRN: Ezra Gonzalez ([id number]) Evaluation Date: 06/19/2023 Date of : 1935 Admission Date: 06/16/2023 1:38 PM Age: 87 y.o. Room/Bed: E7707/E7703 A Discharge Recommendation: Continue to assess pending [...] techniques to bathe body with supervision. Start: 03/21/24 Expected End: 07/17/23 (more content not included)...[facility] [id number] Note Hospitalist Progress Note 06/19/2023 Subjective: Admit Date: 06/16/2023 PCP: No primary care provider on file. Room#: B9-699/L9-798 A BRIEF HOSPITAL COURSE: Ezra is a [...] Full Code Anticipated Dischar (more content not included)...[facility] 06-19-2023 NoteDepartment of Orthopedic Surgery Progress Note [...] -Sensation and motor exam limited 2/2 block [facility] 06-18-2023 NotePatient: Ezra Gonzalez Procedure Summary Date: 06/18/23 Room / Location: [address] Operating Room Anesthesia Start: 1541 Anesthesia [...] discharged once all PACU criteria has been met.[facility] [id number] NotePatient: Ezra Gonzalez Procedure Summary Date: 06/18/23 Room / Location: [facility] Operating Room Anesthesia Start: 1541 Anesthesia Stop: [...] Allowed opportunity for questions and acknowledgement of understanding.[facility]03-20-2024 Note* Perioperative Nursing Note - Irina Khan RN - 06/18/2023 8:11 PM EDT Pt states no need to contact family. RN on floor states she will call pt's son,. [facility] HospitalPyepvi37-82-9655 Note* Perioperative Nursing Note - Irina Khan RN - 06/18/2023 8:11 PM EDT Pt states no need to contact family. RN on floor states she will call pt's son,. [address]Eqdhan58-88-8105 NoteAirway Date/Time: 06/18/2023 3:56 PM Urgency: scheduled General Information and Staff Patient location during procedure: Procedural Resident/BURNT LIME DRAWER: Sae Lora CRNA Performed: BURNT LIME DRAWER Indications and Patient Condition Indications for airway [...] (cm): 21 Number of attempts at approach: [address] [place], [place] [address]3-20-2024 Note Peripheral IV Date/Time: 06/18/2023 4:00 PM Inserted by: JANNETTE Ivey CRNA Placement Needle size: 20 G Laterality: left Location: upper arm. Local anesthetic: none Site prep: alcohol Technique: ultrasound guided Attempts: [address] [place], [place] [address]-20-2024 NotePeripheral Block Time Out: 06/18/2023 3:28 PM Patient location during procedure: Procedural Start time: 06/18/2023 3:28 PM End time: 06/18/2023 3:32 PM Reason for block: at surgeon's request and post-op pain management Staffing Performed: BURNT LIME DRAWER Resident/BURNT LIME DRAWER: JANNETTE Ivey CRNA Preanesthetic Checklist Completed: patient [...] No paresthesias reported by patient during injectionMedications faxJJQJOoyjdn-opnsqqlhbnc-akdatmattgf (TAP) syringe - Injection 30 mL - 06/18/2023 3:28:00 [facility]03-20-2024 NotePatient: Ezra Gonzalez Procedure Information Date/Time: 06/18/23 1530 Procedure: OPEN REDUCTION INTERNAL FIXATION RIGHT DISTAL HUMERUS (Right: Arm Upper) - requesting 330, if can't go at 330 will consider friday Location: [facility] OR [address] [place] [address] Operating Room Surgeons: Benitez Givens MD Relevant [...] Signed On 06-17-2023 06:39:12 EDT by Thong Nesheim Signed by: Thong Francois DO on 06/17/2023 6:39 06-18-2023 Hospital Discharge instructions* Discharge Instructions* Evette [...] Contact Information Primary Emergency Contact: Patito Cuba Relation: Son Annual Giving Officer needed? No Secondary Emergency Contact: Ty [...] (78.9 kg) Mental Status: {MITCHEL Patient Mental Status:09770} IV Access: {MITCHEL IV Access:53768} Nursing Mobility/ADLs: Walking {MALLY ADL:82153::Independent} Transfer {MALLY ADL:04266::Independent} Bathing {MALLY ADL:54136::Independent} Dressing {MALLY ADL:53241::Independent} Toileting {MALLY ADL:59272::Independent} Feeding {MALLY ADL:22283::Independent} Vehicle Service Attendant {MALLY ADL:54058::Independent} Med Delivery {yes/no:84648} Wound Care Documentation and Therapy: Wound/Incision 06/18/23 Incision Arm Anterior;Right;Upper (Active) Site Assessment Clean;Dry 06/19/232147 Treatments Sling 06/19/232147 Primary Dressing Xeroform 06/19/23 1024 Dressing Status Clean, dry & intact 06/19/232147 Number of days: 1 Elimination: Continence: Bowel: {yes/no:76628} Bladder: {yes/no:35919} Urinary Catheter: {MITCHEL Urinary Catheter:30494} Colostomy/Ileostomy/Ileal Conduit: {YES / NO:} Date of Last BM: No intake or output data in the 24 hours ending 06/20/23 1025 I/O last 3 completed shifts: In: 711 (9 mL/kg) [P.O.:280; I.V.:114 (1.4 mL/kg); IV Piggyback:317] Out: 600 (7.6 mL/kg) [Urine:350 (0.1 mL/kg/hr); Blood:250] Weight: 78.9 kg Safety Concerns: {MITCHEL Safety Concerns:17580} Impairments/Disabilities: {MITCHEL Impairments/Disabilities:26348} Nutrition Therapy: Current Nutrition Therapy: {MITCHEL Diet List:61974} Routes of Feeding: {routes of feedin} Liquids: {liquid consistency:55701} Daily Fluid Restriction: {daily fluid restriction:91807} Last Modified Barium Swallow with Video (Video Swallowing Test): {done not done:13125} Treatments at the Time of Hospital Discharge: Respiratory Treatments: Oxygen Therapy: {Therapy; copd oxygen:53027} Ventilator: {MITCHEL Ventilator:59971} Rehab Therapies: {GEN THERAPY DISCIPLINE SCAL:1446459} Weight Bearing Status/Restrictions: {POD WEIGHT BEARIN} Other Medical Equipment (for information only, NOT a DME order): {Assistive Devices DME:37861} Other Treatments: Patient's personal belongings (please select all that are sent with patient): {MITCHEL Patient Belongings:05362} RN SIGNATURE: {E-signature:61073} CASE MANAGEMENT/SOCIAL WORK SECTION Inpatient Status Date: 06/16/23 Readmission Risk Assessment Score: @READMISSIONRISKDETAILS@ Discharging to Facility/ Agency [facility] Address: [address] [place] [address] Name: BRUCE MCARTHUR Address:[address] [id number] ~28.4 [address] Fax: Dialysis Facility (if applicable) Name: Address: Dialysis Schedule: Phone: Fax: Carrot Grader Inspector/Administrative Assistant Front Desk signature: ICIAN SECTION Prognosis: good Condition at [...] in H&P PHYSICIAN SIGNATURE: documented in this [facility]03-20-2024 Note* Brief Op Note - Lexa Aparicio MD - 06/18/2023 3:42 PM EDT Date: 06/16/2023 - 06/18/2023 Location: [facility] OR Name: Ezra Gonzalez, : 1935, Diagnosis Pre-op Diagnosis * Closed displaced fracture of medial condyle of right humerus, initial encounter [S42.461A] Post-op Diagnosis * Closed displaced fracture of medial condyle of right humerus, initial encounter [S42.461A] Procedures OPEN REDUCTION INTERNAL FIXATION RIGHT DISTAL HUMERUS 63197 - [place] OPTX HUMERAL SHFT FX W/PLATE/SCREWS W/WOCERCLAGE Surgeons * Benitez Givens - Primary Procedure Summary Anesthesia: * No anesthesia type entered * ASA: III Estimated Blood Loss: Minimal Drains: * None in log * Staff: Prosthetics Technician: Vivian Herrera RN Scrub Person: Linda Alvarez [...] Givens in 2 weeks -Ortho to follow. [employer] Work Phone: 1(372) 356-990203-20-2024 Note* Brief Op Note - Lexa Apraicio MD - 06/18/2023 3:42 PM EDT Date: 06/16/2023 - 06/18/2023 Location: [facility] OR Name: Ezra Gonzalez, : 1935, Diagnosis Pre-op Diagnosis * Closed displaced fracture of medial condyle of right humerus, initial encounter [S42.998Q] Post-op Diagnosis * Closed displaced fracture of medial condyle of right humerus, initial encounter [S42.962Y] Procedures OPEN REDUCTION INTERNAL FIXATION RIGHT DISTAL HUMERUS 82343 - [place] OPTX HUMERAL SHFT FX W/PLATE/SCREWS W/WOCERCLAGE Surgeons * Benitez Givens - Primary Procedure Summary Anesthesia: * No anesthesia type entered * ASA: III Estimated Blood Loss: Minimal Drains: * None in log * Staff: Prosthetics Technician: Vivian Herrera RN Scrub Person: Linda Alvarez [...] Givens in 2 weeks -Ortho to follow. [employer] Work Phone: 1(210) 640-916403-20-2024 Note* Perioperative Nursing Note - Deisy Gonzalez RN - 06/18/2023 3:29 PM EDT Patients wallet and watch locked up with security. OR notified patient states she has latex allergy Patients purse and glasses taken to pacu [facility] [id number] Note* Perioperative Nursing Note - Deisy Gonzalez RN - 06/18/2023 3:29 PM EDT Patients wallet and watch locked up with security. OR notified patient states she has latex allergy Patients purse and glasses taken to pacu [facility] [id number] Note* Care Coordination - Shikha Gray RN - 06/18/2023 1:03 PM EDT Care Managment Initial Assessment Date: 06/18/2023 Patient Name: Ezra Gonzalez : 1935 Patient Information Source of Information: Patient Cognition/Language: WFL - Within Functional Limits Permission given to speak with patient guest service representative/caregiver as indicated: No Confirmation of Payer with patient/family: Yes Payer Name: [facility] : No Confirmation of Primary [...] Transportation/Shopping: Assistance Provider Transportation/Shopping Assistance Provider Name: [address] Transportation Mode: Needs Assistance with Transportation [...] CONTINUE TO FOLLOW. Shikha Gray RN [facility]84-3404 Note* Care Coordination - Shikha Gray RN - 06/18/2023 1:03 PM EDT Care Managment Initial Assessment Date: 06/18/2023 Patient Name: Ezra Gonzalez : 1935 Patient Information Source of Information: Patient Cognition/Language: WFL - Within Functional Limits Permission given to speak with patient guest service representative/caregiver as indicated: No Confirmation of Payer with patient/family: Yes Payer Name: [facility] : No Confirmation of Primary [...] Transportation/Shopping: Assistance Provider Transportation/Shopping Assistance Provider Name: [address] Transportation Mode: Needs Assistance with Transportation [...] CONTINUE TO FOLLOW. Shikha Gray RN [facility] HospitalGoqpsa06-73-6240 NoteHospitalist Progress Note 06/18/2023 Subjective: Admit Date: 06/16/2023 PCP: No primary care provider on file. Room#: R4-947/R6-662 A BRIEF HOSPITAL COURSE: Ezra is a [...] Emergency Contact: Patito [place] Mobile Relation: Son Annual Giving Officer needed? No Se (more content not included)...[facility]03-20-2024 Note Department of Orthopedic Surgery Progress Note [...] radial/median/ulnar/axillary nerve distributions -Motor + AIN/PIN/ulnar nerve functions[facility]-19-2024 Plan of care note* Care Plan - Yvan Sepulveda RN - 06/17/2023 11:35 PM EDT The patient is Moderately Stable - Low risk of patient condition declining or worsening The patient's goals for the shift include rest and pain control The clinical goals for the shift include rest and pain control [place] [id number] Nurse Note* Yvan Sepulveda RN - 06/17/2023 9:22 PM EDT Patient home medication list updated, provider made aware. [address]ky[address]q70-53-8609 Nurse Note* Yvan Sepulveda RN - 06/17/2023 9:22 PM EDT Patient home medication list updated, provider made aware. documented in this [facility]03-19-2024 Emergency department Note* Di Reyna RN - 06/17/2023 11:52 AM EDT Patient resting in bed at this time, equal unlabored respirations noted and no acute distress, callbell within reach Di Reyna RN 06/17/23 1153 [id number] Emergency department Note* Di Reyna RN - [...] US IV line. Juanjo Pringle RN 06/16/23 9646 * NADIA Ruiz - 06/16/2023 12:38 PM [...] distal humerus fracture. Patient was transferred to [facility] ED for orthopedic consultation. Patient denies [...] Culture. Procedure Abnormality Status --------- ------ Complete Urinalysis[[id number]] Please view results for these tests on [...] a distal humerus fracture. Patient transferred to [facility] ED for orthopedic consultation. Nursing notes [...] screen, x-ray right elbow. CT head from [facility] -shows no signs of acute cranial abnormalities. CXR from [facility] prior to arrival -blunting of bilateral [...] 06/16/2023 12:38 PM EDT Emergency Department Encounter [facility] EMERGENCY DEPT Patient: Ezra Gonzalez : [...] dictating provider for clarification.) Sae Conde MD [facility] Sae Conde MD 06/16/23 1626 documented in this [facility]03-19-2024 Emergency department Note* Alia Foster RN - 06/17/2023 10:00 AM EDT Pt O2 desaturating to mid 80s after receiving dilaudid IV. Pt placed on 2L NC and immediately back up to 95%. MD notified Alia Foster RN 06/17/23 1031 [facility] HospitalGytxuk63-56-0481 NoteHospitalist Progress Note 06/17/2023 Subjective: Admit Date: [...] Primary Emergency Contact: MariialubarodriguePatito Mobile Relation: Son Annual Giving Officer needed? No Secondary Emergency Contact: Ty [place] Mobile Relation: Son Connie JANNETTE Perez - [facility] Division of Hospitalist Medicine [facility]03-19-2024 NoteDepartment of Orthopedic Surgery Progress Note ASSESSMENT [...] ulnar nerve distributions -Motor + AIN/PIN/ulnar nerve functions[facility] Emergency department Note* Juanjo Pringle RN - [...] US IV line. Juanjo Pringle RN 06/16/23 6373 [facility] HospitalWrzjzk54-20-1413 NoteAttending History and Physical Admit Date: 06/16/2023 [...] Pain control am labs, (more content not included)...[facility]03-18-2024 History and physical note* Jayshree Cortez MD [...] Emergency Contact: Patito [place] Mobile Relation: Son Annual Giving Officer needed? No Secondary Emergency Contact: Ty [place] Mobile Relation: Son Jayshree Cortez MD Division of Hospitalist Medicine [facility] [employer] Phone: [phone]) 430-983003-18-2024 History and physical note* Jayshree Cortez MD [...] Emergency Contact: Patito [place] Mobile Relation: Son Annual Giving Officer needed? No Secondary Emergency Contact: Ty [place] Mobile Relation: Son Jayshree Cortez MD Division of Hospitalist Medicine [facility] documented in this [facility]03-18-2024 Physician Emergency department Note* NADIA Ruiz [...] distal humerus fracture. Patient was transferred to [facility] ED for orthopedic consultation. Patient denies [...] Culture. Procedure Abnormality Status --------- ------ Complete Urinalysis[[id number]] Please view results for these tests on [...] a distal humerus fracture. Patient transferred to [facility] ED for orthopedic consultation. Nursing notes [...] screen, x-ray right elbow. CT head from [facility] -shows no signs of acute cranial abnormalities. CXR from [facility] prior to arrival -blunting of bilateral [...] Medicine Provider NADIA Ruiz 06/16/23 1635 [facility]Wrbhye34-31-6533 Physician Emergency department Note* Sae Conde MD - 06/16/2023 12:38 PM EDT Emergency Department Encounter [facility] EMERGENCY DEPT Patient: Ezra Gonzalez : [...] [employer] Sae Conde MD 06/16/23 1626 [employer] Phone: [phone]) 656-790109-30-2023 Discharge summary Author Lali Pimentel [facility] December 27, 2022 10:31pm Note Date/Time December 27, 2022 3:52pm [facility] Medical Records Department [address] [place] [address] Emergency Department Summary 12/27/22 MR#: [id number] Acct: [id number] Name: EZRA GONZALEZ Rep #:[id number] : 1935 87 From: Lali Pimentel MD PCP: Dr. Rosemary Doran MD Status:ADM MARIELOS Location: [place] [address] HPI History of Present Illness Chief Complaint: [...] HOSPITAL Medical History Atherosclerotic heart disease of [place] coronary artery without angina pectoris Chronic diastolic [...] % (Auto) 57.4 Lymph % (Auto) 27.9 Hodgeman % (Auto) 10.8 H Eos % (Auto) [...] troponin is normal at 10. Neurology from [facility] felt that the patient should [...] Provider] - Disposition Disposition: Acute Care Hospital [facility] What to do if you have Problems For any increased pain, shortness of breath, bleeding, nausea or vomiting, chestpain, or any unexpected problems, contact your Primary Care Provider. Call [facility] ([phone]) or report to the closest Emergency Room. Call 911 if necessary. 12/27/222230 <Electronically signed by Lali Pimentel MD> Cosigner Signature (if applicable): CC: Dr. Rosemary Doran MD ~ Signed [facility] Work Phone: 1(975) 909-204709-29-2023 History and physical note Author Lynn Horn [facility] December 27, 2022 6:54pm Note Date/Time December 27, 2022 5:12pm [facility] Medical Records Department [address] [place] [address] H&P Exam - Hospitalist 12/27/22 1709 MR#: [id number] Acct: [id number] Name: EZRA GONZALEZ Rep #:[id number] : 1935 87 From: Lynn Horn DO PCP: Dr. Rosemary Doran MD Status:ADM MARIELOS Location: [place] [id number] HPI - General General Date of Admission: 12/27/22 Date of Service: 12/27/22 Chief Complaint: Speech abnormalities HPI Narrative EZRA GONZALEZ, is a 87 F who presented to the emergency department at [facility] on 12/27/2022 with speech abnormalities that started after 1 PM this afternoon. She resides at [facility]. She was last known well at [...] aspirin 81 mg as well [facility] Medical History Atherosclerotic heart disease of [place] coronary artery without angina pectoris Chronic diastolic [...] % (Auto) 57.4, Lymph % (Auto) 27.9, Hodgeman % (Auto) 10.8 H, Eos % (Auto) [...] 15:37 EDT Reading Location ID and State: [facility] / [place] Tel , Service support , ADDENDUM: 12/27/22 [...] on admission Charges/Coding Visit Charges Inpatient E&M: 73692 Init Hosp L2 12/27/22 7792 <Electronically signed by Lynn Horn DO> Cosigner Signature (if applicable): CC: Dr. Rosemary Doran MD; Dr. Lynn Horn DO~ Signed [facility] Work Phone: 1(509) 543-320709-14-2023 Discharge summary Author María Crane [facility] December 12, 2022 1:40pm Note Date/Time December 12, 2022 1:40pm [facility] Physical Therapy [facility] [address] [place] [address] [address] [place] [id number] / REHABILITATION SERVICES DISCHARGE SUMMARY MR#: [id number] Acct: [id number] Name: EZRA GONZALEZ Rep #: [id number] : 1935 87 From: María Cooley Referring Dr.: Dr. Anant Juarez MD Status: REG RCR Insurance: [facility] [id number] SELF PAY INSURANCE Patient Information Patient Information: [...] Dr. Anant Juarez MD ~ ELR Signed [facility] Work Phone: 1([phone]) 457-416011-17-2007 Evaluation note* Diagnosis Onset Date Resolution Status Chronic diastolic (congestive) heart failure chronic Essential (primary) hypertension chronic Paroxysmal atrial fibrillation chronic History of coronary artery stent placement February 142006 resolved [facility] Work Phone: 1(350) 215-746711-17-2007 Evaluation note* Diagnosis Onset Date Resolution Status Chronic diastolic (congestive) heart failure chronic Essential (primary) hypertension chronic History of coronary artery stent placement February 142006 resolved Brain TIA resolved Carotid stenosis acute Difficulty with speech acute Dysarthria resolved Polyneuropathy acute [facility] Work Phone: 1(478) 817-567311-17-2007 Evaluation note* Diagnosis Onset Date Resolution Status Chronic diastolic (congestive) heart failure chronic Essential (primary) hypertension chronic History of coronary artery stent placement February 142006 resolved Brain TIA resolved Carotid stenosis acute Difficulty with speech acute Dysarthria resolved Abnormality of gait and mobility acute Carotid stenosis acute Dementia acute Polyneuropathy acute Transient ischemic attack re solved [facility] Work Phone: [phone]) 769-391411-17-2007 Evaluation note* Diagnosis Onset Date Resolution Status Longstanding persistent atrial fibrillation acute Essential (primary) hypertension chronic History of coronary artery stent placement February 142006 resolved Dementia acute Epilepsy acute Polyneuropathy acute Transient ischemic attack re solved [facility] Work Phone: Consult note Author Kvng Carney [facility] June 16, 2023 10:15am Note Date/Time June 16, 2023 10: 14am [facility] Medical Records Department [address] [place] [address] Consultation - Orthopedics 06/16/23 1012 MR#: [id number] Acct: [id number] Name: EZRA GONZALEZ Rep #:[id number] : 1935 87 From: Kvng Carney MD PCP: Dr. Rosemary Doran MD Status:REG ER Location: ED HPI Consult Data Date of Consult: 06/16/23 HPI Narrative HPI Narrative: EZRA GONZALEZ, is a 87 F who presents with a right distal humerus fracture. Patient apparently is in [facility] there a fall. According to the ED physician Dr. Mack who called me today this is a closed neurovascularly intact injury. [facility] Medical History (Updated 06/16/23 @ 10:13 by Kvng Carney MD) Atherosclerotic heart disease of [place] coronary artery without angina pectoris Chronic diastolic [...] capsule,delayed release 20 mg PO DAILY reflux 08/17/23 [History Last Taken 12/27/22] atorvastatin 40 mg [...] % (Auto) 67.8, Lymph % (Auto) 23.0, Hodgeman% (Auto) 7.0, Eos % (Auto) 1.3, Baso [...] applicable): CC: Dr. Rosemary Doran MD~ Signed [facility] Work Phone: Discharge summary Author Neri Mitchell [facility] November 14, 2022 11:57am Note Date/Time November 14, 2022 11 :10am [facility] Medical Records Department [address] [place] [address] Emergency Department Summary 11/14/22 MR#: [id number] Acct: [id number] Name: EZRA GONZALEZ Rep #:[id number] : 1935 87 From: Neri Mitchell MD [...] HOSPITAL Medical History Atherosclerotic heart disease of [place] coronary artery without angina pectoris Chronic diastolic [...] % (Auto) 64.0 Lymph % (Auto) 24.9 Hodgeman % (Auto) 7.8 Eos % (Auto) 2.4 [...] 11:23 EDT Reading Location ID and State: [facility] / [place] Tel , Service support , ADDENDUM: 11/14/22 [...] No evidence for large vessel occlusion the [place]. N.B. : The above Results were Read Back by Ban Avila MD to Neri Mitchell MD, and understanding confirmed on 11/14/2022 11:41:26 (ET). Electronically Signed: Ban Avila MD at 11:41 EDT , ADDENDUM: 11/14/22 1148 IMPRESSION: No evidence for significant stenosis or occlusion in the carotid or vertebral arteries of the neck. No evidence for large vessel occlusion the [place]. N.B. : The above [...] Fibrillation Management Discussion w/another healthcare provider: Hospitalist, Transportation Security Officer (Stroke neurology Dr. Tamez) and Radiologist (At 1121 for NCCT, negative for bleed) Stroke Documentation Questions Stroke Team Activated: Yes Critical Care Time Critical Care Time: Yes Critical care time (excluding procedures): 30-74 minutes (37 min), Including time spent:, Discussing w/Patient &/or Family/Television Reporter, Discussing w/Consultants, Arranging Admission or Transfer and Performing Direct Patient Care at Bedside Discharge Plan Dx/Rx/DC Orders Clinical Impression: Brain TIA, Paroxysmal atrial fibrillation, Subtherapeutic international normalized ratio (INR) Disposition Disposition: Acute Care Hospital [facility] What to do if you have Problems For any increased pain, shortness of breath, bleeding, nausea or vomiting, chestpain, or any unexpected problems, contact your Primary Care Provider. Call [facility] ([phone]) or report to the closest Emergency Room. Call 911 if necessary. 11/14/22 1157 <Electronically signed by Neri Mitchell MD> Cosigner Signature (if applicable): CC: Dr. Rosemary Doran MD ~ Signed [facility] Work Phone: Discharge summary Author Sae Carballo [facility] December 28, 2022 11:09am Note Date/Time December 28, 2022 11:08am [facility] Medical Records Department [address] [place] [address] Instructions for Home/Discharge Instructions 12/28/22 1107 MR#: [id number] Acct: [id number] Name: EZRA GONZALEZ Rep #:[id number] : 1935 87 From: Sae fleming MD [...] MD; Dr. Lynn Horn DO ~ Signed [facility] Work Phone: Evaluation note* Diagnosis Onset Date Resolution Status Atherosclerotic heart diseas e of [place] coronary artery without angina pectoris chronic Chronic diastolic (congestive) heart failure chronic Essential (primary) hypertension chronic Hyperlipidemia chronic Paroxysmal atrial fibrillation chronic [facility] Work Phone: Evaluation note* Diagnosis Onset Date Resolution Status Abnormality of gait and mobility acute Carotid stenosis acute Dementia acute Polyneuropathy acute Transient ischemic attack re solved [facility] Work Phone: Evaluation note* Diagnosis Onset Date Resolution Status Abnormality of gait and mobility acute Carotid stenosis acute Dementia acute Polyneuropathy acute Transient ischemic attack re solved Chronic diastolic (congestive) heart failure chronic Essential (primary) hypertension chronic Paroxysmal atrial fibrillation chronic History of coronary artery stent placement February 142006 resolved [facility] Work Phone: Evaluation note* Diagnosis Onset Date Resolution Status Abnormality of gait and mobility acute Carotid stenosis acute Dementia acute Polyneuropathy acute Transient ischemic attack re solved Chronic diastolic (congestive) heart failure chronic Essential (primary) hypertension chronic Paroxysmal atrial fibrillation chronic History of coronary artery stent placement February 142006 resolved Brain TIA acute Subtherapeutic international normalized ratio (INR) acute Paroxysmal atrial fibrillation chronic [facility] Work Phone: Evaluation note* Diagnosis Onset Date Resolution Status Abnormality of gait and mobility acute Carotid stenosis acute Dementia acute Polyneuropathy acute Transient ischemic attack re solved Chronic diastolic (congestive) heart failure chronic Essential (primary) hypertension chronic History of coronary artery stent placement February 142006 resolved Brain TIA resolved Carotid stenosis acute [facility] Work Phone: Evaluation note* Diagnosis Onset Date Resolution Status Abnormality of gait and mobility acute Carotid stenosis acute Dementia acute Polyneuropathy acute Transient ischemic attack re solved Chronic diastolic (congestive) heart failure chronic Essential (primary) hypertension chronic History of coronary artery stent placement February 142006 resolved Brain TIA resolved Carotid stenosis acute Difficulty with speech acute Dysarthria acute [facility] Work Phone: Evaluation note* Diagnosis Onset Date Resolution Status Brain TIA resolved Carotid stenosis acute Difficulty with speech acute Dysarthria resolved Abnormality of gait and mobility acute Carotid stenosis acute Dementia acute Polyneuropathy acute Transient ischemic attack re solved [facility] Work Phone: Evaluation note* Diagnosis Onset Date Resolution Status Dementia acute Epilepsy acute Polyneuropathy acute Transient ischemic attack re solved [facility] Work Phone: Evaluation note* Diagnosis Onset Date Resolution Status Dementia acute Epilepsy acute Polyneuropathy acute Transient ischemic attack re solved Longstanding persistent atrial fibrillation acute Essential (primary) hypertension chronic History of coronary artery stent placement February 142006 resolved Dementia acute Epilepsy acute Polyneuropathy acute Transient ischemic attack re solved [facility] Work Phone: Evaluation note* Diagnosis Closed displaced fracture of medial condyle of right humerus, initial encounter- Primary Closed displaced fracture of medial condyle of right humerus, initial encounter documented in this [facility] Additional Instructions Your work-up today does not show signs of heart attack or heart damage. Your Coumadin level/INR is therapeutic at 2.7. Please follow-up with your family doctor for repeat evaluation or return to the ER if you have any further [facility] Work Phone: Hospital Discharge instructionsAmbulatory Orders* Physical Therapy Referral Location: None Selected [facility] Work Phone: Hospital Discharge instructions Additional Instructions Will need to follow-up Lamictal level since it is a send out. Recommend follow- up appointment with her neurologist [facility] Work Phone: Reason for referral (narrative)No reason for referral information availableWMercy Health St[facility] Work Phone: Summary Purpose Family History No Family History Records Found Relationship Condition Age at Onset Recorded Date/T maggy father Coronary artery disease Unknown brother Coronary artery disease Unknown Advance Directives No Advanced Directives Records Found Advance Directive Response Recorded Date/ Time Advance Directives Yes November 10:13am Living Will No February 11 12:11am Power of Rail Loader No February 11, 2022 12:11am Advance Directive Response Recorded Date/ Time Advance Directives Yes November 11:13am Living Will No February 11 1:11am Power of Rail Loader No February 11, 2022 1:11am Advance Directive Response Recorded Date/ Time Advance Directives Yes November 11:13am Living Will No September 08, 2022 3:33pm Power of Rail Loader No September 08 3:33pm Advance Directive Response Recorded Date/ Time Advance Directives Yes November 11:13am Living Will No November 14 11:07am Power of Rail Loader No November 14 023 11:07am Advance Directive Response Recorded Date/ Time Name of Medical Power of Rail Loader Ty nguyen November 18, 2022 7:55am Advance Directives Yes November 11:13am Living Will Yes November 18 3 7:55am Power of Rail Loader Yes November 18 023 7:55am Name of Medical Power of Rail Loader Wilfredo [place] November 14, 2022 1:26pm Advance Directive Response Recorded Date/ Time Name of Medical Power of Rail Loader Ty Campoverdei l November 18, 2022 7:55am Name of Medical Power of Rail Loader Wilfredo Chiangastrodrigue November 14, 2022 1:26pm Advance Directives Yes November 11:13am Living Will No December 27, 2022 7:16pm Power of Rail Loader No November 7:16pm Advance Directive Response Recorded Date/ Time Name of Medical Power of Rail Loader Ty nguyen November 18, 2022 6:55am Name of Medical Power of Rail Loader Wilfredo [place] November 14, 2022 12:26pm Advance Directives Yes November 10:13am Living Will No December 27, 2022 6:16pm Power of Rail Loader No November 6:16pm Advance Directive Response Recorded Date/ Time Advance Directives Yes November 10:13am Living Will No December 27, 2022 6:16pm Power of Rail Loader No November 6:16pm Advance Directive Response Recorded Date/ Time Name of Medical Power of Rail Loader SON--JACK June 16, 2023 8:32am Advance Directives Yes November 11:13am Living Will Yes June 16, 2023 8:32am Power of Rail Loader Yes June 15 8:32am Latest Code Status on File Code Status Date Activated Date Inactivated Comments Full Code 06/16/2023 4:39 PM 06/20/2023 7:46 PM Advance Directive Response Recorded Date/ Time Living Will Yes June 16, 2023 7:32am Power of Rail Loader Yes June 15 7:32am Advance Directives Yes November 10:13am Advance Directive Response Recorded Date/ Time Living Will Yes June 16, 2023 8:32am Do you have a Healthcare Power of Rail Loader? Yes June 16, 2023 8:32am Advance Directives Yes November 11:13am Advance Directive Response Recorded Date/ Time Living Will No December 27, 2022 7:16pm Do you have a Healthcare Power of Rail Loader? No December 27, 2022 7:16pm Living Will Yes June 16, 2023 8:32am Do you have a Healthcare Power of Rail Loader? Yes June 16, 2023 8:32am Advance Directives Yes November 11:13am Advance Directive Response Recorded Date/ Time Living Will No December 27, 2022 7:16pm Do you have a Healthcare Power of Rail Loader? No December 27, 2022 7:16pm Do you have a Healthcare Power of Rail Loader? Yes September 08, 2024 12:26pm Advance Directives Yes November 11:13am Advance Directive Response Recorded Date/ Time Living Will No December 27, 2022 7:16pm Do you have a Healthcare Power of Rail Loader? No December 27, 2022 7:16pm Do you have a Healthcare Power of Rail Loader? Yes September 10, 2024 5:17pm Do you have a Healthcare Power of Rail Loader? Yes September 08, 2024 12:26pm Advance Directives Yes November 11:13am Advance Directive Response Recorded Date/ Time Do you have a Healthcare Power of Rail Loader? Yes September 10, 2024 5:17pm Do you have a Healthcare Power of Rail Loader? 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 EORDER FOR LABS FROM DR JUAREZ Consult Reason for Visit Abnormality of gait and mobility Carotid stenosis Dementia Polyneuropathy Transient ischemic attack Chief Complaint TIA SYMPTOMS, HX OF DM, AFIB confusion detention (current) use 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 EORDER FOR LABS FROM DR JUAREZ Consult LEFT ICA STENOSIS Reason for Visit Abnormality of gait and mobility Carotid stenosis Dementia Polyneuropathy Transient ischemic attack Chief Complaint TIA SYMPTOMS, HX OF DM, AFIB 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 EORDER FOR LABS FROM DR JUAREZ Consult LEFT ICA STENOSIS 6 M FU W SAMPLE STITCHER per SAMPLE STITCHER GAIT,POLYNEUROPATHY,LUMBAR COMPRESSION FX/RX HERE GAIT DISORDER Reason for Visit Abnormality of gait and mobility Carotid stenosis Dementia Polyneuropathy Transient ischemic attack Chronic diastolic (congestive) heart failure Essential (primary) hypertension Paroxysmal atrial fibrillation History of coronary artery stent placement Chief Complaint TIA SYMPTOMS, HX OF DM, AFIB confusion detention (current) use 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 EORDER FOR LABS FROM DR JUAREZ Consult LEFT ICA STENOSIS 6 M FU W SAMPLE STITCHER per SAMPLE STITCHER GAIT,POLYNEUROPATHY,LUMBAR COMPRESSION FX/RX HERE GAIT DISORDER TIA Reason for Visit Abnormality of gait and mobility Carotid stenosis Dementia Polyneuropathy Transient ischemic attack Chronic diastolic (congestive) heart failure Essential (primary) hypertension Paroxysmal atrial fibrillation History of coronary artery stent placement Brain TIA Subtherapeutic international normalized ratio (INR) Paroxysmal atrial fibrillation Chief Complaint TIA SYMPTOMS, HX OF DM, 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 EORDER FOR LABS FROM DR JUAREZ Consult LEFT ICA STENOSIS 6 M FU W SAMPLE STITCHER per SAMPLE STITCHER GAIT,POLYNEUROPATHY,LUMBAR COMPRESSION FX/RX HERE GAIT DISORDER TIA TIA (cardiology) TIA (cardiology) tia Reason for Visit Abnormality of gait and mobility Carotid stenosis Dementia Polyneuropathy Transient ischemic attack Chronic diastolic (congestive) heart failure Essential (primary) hypertension Paroxysmal atrial fibrillation History of coronary artery stent placement Brain TIA Subtherapeutic international normalized ratio (INR) Paroxysmal atrial fibrillation Chief Complaint TIA SYMPTOMS, HX OF DM, AFIB confusion detention (current) use 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 EORDER FOR LABS FROM DR JUAREZ Consult LEFT ICA STENOSIS 6 M FU W SAMPLE STITCHER per SAMPLE STITCHER GAIT,POLYNEUROPATHY,LUMBAR COMPRESSION FX/RX HERE GAIT DISORDER TIA TIA (cardiology) TIA (cardiology) tia PENITENTIARY LAB WORK CONSULT-CAROTID STENOSIS Reason for Visit Abnormality of gait and mobility Carotid stenosis Dementia Polyneuropathy Transient ischemic attack Chronic diastolic (congestive) heart failure Essential (primary) hypertension History of coronary artery stent placement Brain TIA Carotid stenosis Chief Complaint TIA SYMPTOMS, HX OF DM, AFIB confusion detention (current) use 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 EORDER FOR LABS FROM DR JUAREZ Consult LEFT ICA STENOSIS 6 M FU W SAMPLE STITCHER per SAMPLE STITCHER GAIT,POLYNEUROPATHY,LUMBAR COMPRESSION FX/RX HERE GAIT DISORDER TIA TIA (cardiology) TIA (cardiology) tia PENITENTIARY LAB WORK CONSULT-CAROTID STENOSIS LABWORK PENITENTIARY LABWORK Reason for Visit Abnormality of gait and mobility Carotid stenosis Dementia Polyneuropathy Transient ischemic attack Chronic diastolic (congestive) heart failure Essential (primary) hypertension History of coronary artery stent placement Brain TIA Carotid stenosis Chief Complaint TIA SYMPTOMS, HX OF DM, AFIB confusion detention (current) use 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 EORDER FOR LABS FROM DR JUAREZ Consult LEFT ICA STENOSIS 6 M FU W SAMPLE STITCHER per SAMPLE STITCHER GAIT,POLYNEUROPATHY,LUMBAR COMPRESSION FX/RX HERE GAIT DISORDER TIA TIA (cardiology) TIA (cardiology) tia PENITENTIARY LAB WORK CONSULT-CAROTID STENOSIS LABWORK PENITENTIARY LABWORK DYARTHRIA DYARTHRIA Reason for Visit Abnormality of gait and mobility Carotid stenosis Dementia Polyneuropathy Transient ischemic attack Chronic diastolic (congestive) heart failure Essential (primary) hypertension History of coronary artery stent placement Brain TIA Carotid stenosis Difficulty with speech Dysarthria Chief Complaint LEFT ICA STENOSIS 6 M FU W SAMPLE STITCHER per SAMPLE STITCHER GAIT,POLYNEUROPATHY,LUMBAR COMPRESSION FX/RX HERE GAIT DISORDER TIA TIA (cardiology) TIA (cardiology) tia PENITENTIARY LAB WORK CONSULT-CAROTID STENOSIS LABWORK PENITENTIARY LABWORK DYARTHRIA DYARTHRIA DYARTHRIA PENITENTIARY LABWORK 4 month f/u EORDER Reason for Visit Chronic diastolic (c ongestive) heart failure Essential (primary) hypertension History of coronary artery stent placement Brain TIA Carotid stenosis Difficulty with speech Dysarthria Polyneuropathy Chief Complaint 6 M FU W SAMPLE STITCHER per SAMPLE STITCHER GAIT,POLYNEUROPATHY,LUMBAR COMPRESSION FX/RX HERE GAIT DISORDER TIA TIA (cardiology) TIA (cardiology) tia PENITENTIARY LAB WORK CONSULT-CAROTID STENOSIS LABWORK PENITENTIARY LABWORK DYARTHRIA DYARTHRIA DYARTHRIA PENITENTIARY LABWORK 4 month f/u EORDER Reason for Visit Chronic diastolic (c ongestive) heart failure Essential (primary) hypertension History of coronary artery stent placement Brain TIA Carotid stenosis Difficulty with speech Dysarthria Abnormality of gait and mobility Carotid stenosis Dementia Polyneuropathy Transient ischemic attack Chief Complaint TIA TIA (cardiology) TIA (cardiology) tia PENITENTIARY LAB WORK CONSULT-CAROTID STENOSIS LABWORK PENITENTIARY LABWORK DYARTHRIA DYARTHRIA DYARTHRIA PENITENTIARY LABWORK 4 month f/u EORDER PENITENTIARY LABWORK Reason for Visit Brain TIA Carotid stenosis Difficulty with speech Dysarthria Abnormality of gait and mobility Carotid stenosis Dementia Polyneuropathy Transient ischemic attack Chief Complaint PENITENTIARY LABWORK 4 month f/u EORDER PENITENTIARY LABWORK PENITENTIARY LAB WORK PENITENTIARY LABWORK Reason for Visit Dementia Epilepsy Polyneuropathy Transient ischemic attack Chief Complaint 4 month f/u EORDER PENITENTIARY LABWORK PENITENTIARY LAB WORK PENITENTIARY LAB WORK PENITENTIARY LABWORK 7 m fu 4 month f/u Reason for Visit Dementia Epilepsy Polyneuropathy Transient ischemic attack Longstanding persistent atrial fibrillation Essential (primary) hypertension History of coronary artery stent placement Dementia Epilepsy Polyneuropathy Transient ischemic attack Chief Complaint PENITENTIARY LABWORK PENITENTIARY LAB WORK PENITENTIARY LAB WORK PENITENTIARY LABWORK LABWORK 7 m fu 4 month f/u LABWORK Reason for Visit Longstanding persist ent atrial fibrillation Essential (primary) hypertension History of coronary artery stent placement Dementia Epilepsy Polyneuropathy Transient ischemic attack Chief Complaint PENITENTIARY LABWORK PENITENTIARY LAB WORK PENITENTIARY LAB WORK PENITENTIARY LABWORK LABWORK 7 m fu 4 month f/u LABWORK [place] Reason for Visit Longstanding persist ent atrial fibrillation Essential (primary) hypertension History of coronary artery stent placement Dementia Epilepsy Polyneuropathy Transient ischemic attack Chief Complaint PENITENTIARY LAB WOR K PENITENTIARY LAB WORK PENITENTIARY LABWORK LABWORK 7 m fu 4 month f/u LABWORK [place]ALL [place] LABWORK Reason for Visit Longstanding persist ent atrial fibrillation Essential (primary) hypertension History of coronary artery stent placement Dementia Epilepsy Polyneuropathy Transient ischemic attack Chief Complaint Admit Date PENITENTIARY LAB WORK February 05, 2024 5:00am PENITENTIARY LAB WORK March 04, 2024 5:00am PENITENTIARY LAB WORK March 08, 2024 5:00am PENITENTIARY LAB WORK March 10 4:00am LABWORK March 17, 2024 5:00am LABWORK March 19, 2024 5:00am LABWORK March 25, 2024 5:00am PENITENTIARY LAB WORK March 26 5:00am PENITENTIARY LAB WORK March 29 5:00am PENITENTIARY LAB WORK April 05, 2024 5:00am PENITENTIARY LAB WORK April 06, 2024 5:00am LABWORK April 09, 2024 5 :00am PENITENTIARY LAB WORK April 14, 2024 4:00am PENITENTIARY LAB WORK April 28, 2024 5:00am LABWORK May 05, 2024 5 :00am 8 mo fu May 10, 2024 2:34pm PENITENTIARY LAB WORK May 19 5:00am Reason for Visit Admit Date Dementia May 10, 2024 2:34pm Epilepsy May 10, 2024 2:34pm Transient ischemic attack May 10, 2024 2:34pm Chief Complaint Admit Date PENITENTIARY LAB WORK March 04, 2024 5:00am PENITENTIARY LAB WORK March 08, 2024 5:00am PENITENTIARY LAB WORK March 10 4:00am LABWORK March 17, 2024 5:00am LABWORK March 19, 2024 5:00am LABWORK March 25, 2024 5:00am PENITENTIARY LAB WORK March 26 5:00am PENITENTIARY LAB WORK March 29 5:00am PENITENTIARY LAB WORK April 05, 2024 5:00am PENITENTIARY LAB WORK April 06, 2024 5:00am LABWORK April 09, 2024 5 :00am PENITENTIARY LAB WORK April 14, 2024 4:00am PENITENTIARY LAB WORK April 28, 2024 5:00am LABWORK May 05, 2024 5 :00am 8 mo fu May 10, 2024 2:34pm PENITENTIARY LAB WORK May 12 5:00am PENITENTIARY LAB WORK May 19 5:00am PENITENTIARY LAB WORK June 09, 2024 5 :00am Chief Complaint Admit Date PENITENTIARY LAB WORK March 10 4:00am LABWORK March 17, 2024 5:00am LABWORK March 19, 2024 5:00am LABWORK March 25, 2024 5:00am PENITENTIARY LAB WORK March 26 5:00am PENITENTIARY LAB WORK March 29 5:00am PENITENTIARY LAB WORK April 05, 2024 5:00am PENITENTIARY LAB WORK April 06, 2024 5:00am LABWORK April 09, 2024 5 :00am PENITENTIARY LAB WORK April 14, 2024 4:00am PENITENTIARY LAB WORK April 28, 2024 5:00am LABWORK May 05, 2024 5 :00am 8 mo fu May 10, 2024 2:34pm PENITENTIARY LAB WORK May 12 5:00am PENITENTIARY LAB WORK February 19th, 202 5 5:00am PENITENTIARY LAB WORK June 09, 2024 5 :00am PENITENTIARY LAB WORK June 16, 2024 5 :00am [...] Admit Date LABWORK March 25, 2024 5:00am PENITENTIARY LAB WORK March 26 5:00am PENITENTIARY LAB WORK March 29 5:00am PENITENTIARY LAB WORK April 05, 2024 5:00am PENITENTIARY LAB WORK April 06, 2024 5:00am LABWORK April 09, 2024 5 :00am PENITENTIARY LAB WORK April 14, 2024 4:00am PENITENTIARY LAB WORK April 28, 2024 5:00am LABWORK May 05, 2024 5 :00am 8 mo fu May 10, 2024 2:34pm PENITENTIARY LAB WORK May 12 5:00am PENITENTIARY LAB WORK May 19 5:00am PENITENTIARY LAB WORK June 09, 2024 5 :00am PENITENTIARY LAB WORK June 16, 2024 5 :00am 1 Y FU July 01, 2024 10:3 5am PENITENTIARY LAB WORK July 19, 2024 4 :00am Chief Complaint Admit Date PENITENTIARY LAB WORK May 12 5:00am PENITENTIARY LAB WORK May 19 5:00am PENITENTIARY LAB WORK June 09, 2024 5 :00am PENITENTIARY LAB WORK June 16, 2024 5 :00am 1 Y FU July 01, 2024 10:3 5am PENITENTIARY LAB WORK July 19, 2024 4 :00am PENITENTIARY LAB WORK August 18, 2024 5:0 0am SEIZURE September 08, 2024 12:2 0pm Reason for Visit Admit Date Longstanding persistent atrial fibrillat ion July 01, 2024 10:35am Essential (primary) hypertension July 012024 10:35am History of coronary artery stent placeme nt July 01, 2024 10:35am Chief Complaint Admit Date PENITENTIARY LAB WORK May 19 5:00am PENITENTIARY LAB WORK June 09, 2024 5 :00am PENITENTIARY LAB WORK June 16, 2024 5 :00am 1 Y FU July 01, 2024 10:3 5am PENITENTIARY LAB WORK July 19, 2024 4 :00am PENITENTIARY LAB WORK August 18, 2024 5:0 0am SEIZURE September 08, 2024 12:2 0pm Chief Complaint Admit Date PENITENTIARY LAB WORK May 19 5:00am PENITENTIARY LAB WORK June 09, 2024 5 :00am PENITENTIARY LAB WORK June 16, 2024 5 :00am 1 Y FU July 01, 2024 10:3 5am PENITENTIARY LAB WORK July 19, 2024 4 :00am PENITENTIARY LAB WORK August 18, 2024 5:0 0am SEIZURE September 08, 2024 12:2 0pm STROKE VS SEIZURE September 10, 2024 4:03 pm Chief Complaint Admit Date PENITENTIARY LAB WORK May 19 5:00am PENITENTIARY LAB WORK June 09, 2024 5 :00am PENITENTIARY LAB WORK June 16, 2024 5 :00am 1 Y FU July 01, 2024 10:3 5am PENITENTIARY LAB WORK July 19, 2024 4 :00am PENITENTIARY LAB WORK August 18, 2024 5:0 0am [...] 2024 4 :03pm Chief Complaint Admit Date PENITENTIARY LAB WORK May 19 5:00am PENITENTIARY LAB WORK June 09, 2024 5 :00am PENITENTIARY LAB WORK June 16, 2024 5 :00am 1 Y FU July 01, 2024 10:3 5am PENITENTIARY LAB WORK July 19, 2024 4 :00am PENITENTIARY LAB WORK August 18, 2024 5:0 0am SEIZURE September 08, 2024 12:2 0pm STROKE VS SEIZURE September 10, 2024 4:03 pm STROKE VS SEIZURE September 11, 2024 12:1 4pm 2 SEIZURES/ IN [facility] September 13, 2024 2:04 pm EORDERS September 13, 2024 3:03 pm Reason for Visit Admit Date Longstanding persistent atrial fibrillat ion July 01, 2024 10:35am Essential (primary) hypertension July 012024 10:35am History of coronary artery stent placeme nt July 01, 2024 10:35am Difficulty with speech September 10, 2024 4 :03pm Epilepsy September 13, 2024 2:04 pm Chief Complaint Admit Date PENITENTIARY LAB WORK August 18, 2024 5:0 0am SEIZURE September 08, 2024 12:2 0pm STROKE VS SEIZURE September 10, 2024 4:03 pm STROKE VS SEIZURE September 11, 2024 12:1 4pm 2 SEIZURES/ IN [facility] September 13, 2024 2:04 pm EORDERS September 13, 2024 3:03 pm LABWORK September 17, 2024 5:00 am PENITENTIARY LAB WORK September 22, 2024 4: 00am PENITENTIARY LAB WORK September 24, 2024 5: 00am PENITENTIARY LAB WORK October 04, 2024 5:0 0am PENITENTIARY LAB WORK October 11, 2024 4: 00am PENITENTIARY LAB WORK October 25, 2024 5: 00am LABWORK November 08, 2024 5: 00am See clinical notes; L.L> November 22 8:14am STAT LEFT LOWER EXT SWELLING October 9:07am Reason for Visit Admit Date Difficulty with speech September 10, 2024 4 :03pm Dementia September 13, 2024 2:04 pm Epilepsy September 13, 2024 2:04 pm Urinary tract infection September 13, 2024 2:04pm Transient ischemic attack September 13 2:04pm 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 A ug2024 8:14am Lower extremity edema November 22, 2024 8:14am Atherosclerotic heart diseas e of [place] coronary artery without angina pectoris November 22, 2024 8:14am Essential (primary) hypertension November 22, 2024 8:14am Hyperlipidemia November 22, 2024 8: 14am Additional Source Comments INFORMATION SOURCE (unrecogn ized section and content) DATE CREATED AUTHOR 02/04/2018 [facility] DATE CREATED AUTHOR AUTHOR'S ORGANIZ ATION 11/12/2019 [facility] DATE CREATED AUTHOR AUTHOR'S ORGANIZ ATION 06/26/2023 [facility] DATE CREATED AUTHOR AUTHOR'S ORGANIZ ATION 12/12/2024 [facility] Source Comments (unrecognize d section and content) In the event this informatio n is protected by the Federal Confidentiality of Alcohol and Drug Abuse Patient Records regulations: The Federal rules restrict any use of the information to criminally investigate or prosecute any alcohol or drug abuse patient.[facility] the event this information is protected by the Federal Confidentiality of Alcohol and Drug Abuse Patient Records regulations: The Federal rules restrict any use of the information to criminally investigate or prosecute any alcohol or drug abuse patient.[facility] the event this information is protected by the Federal Confidentiality of Alcohol and Drug Abuse Patient Records regulations: The Federal rules restrict any use of the information to criminally investigate or prosecute any alcohol or drug abuse patient.[facility] the event this information is protected by the Federal Confidentiality of Alcohol and Drug Abuse Patient Records regulations: The Federal rules restrict any use of the information to criminally investigate or prosecute any alcohol or drug abuse patient.[facility] the event this information is protected by the Federal Confidentiality of Alcohol and Drug Abuse Patient Records regulations: The Federal rules restrict any use of the information to criminally investigate or prosecute any alcohol or drug abuse patient.[facility] Reason for Visit (unrecogniz ed section and content) Reason Onset Date Comments Refill Request Refill Request 11/11/2019 Reason Comments Arm Injury Pt arrives via [employer] ambulance from [facility] with complaints of right elbow fracture. Patient was sent here for ortho consult. No pain on arrival. Arrives with right arm splinted. Specialty Diagnoses / Procedures Referred By Contac t Referred To Contact Diagnoses Closed displaced fracture of medial condyle of right humerus, initial encounter Procedures .. Jayshree Cortez MD [address] [place] [address] [facility] [address] [place] [id number] Referral ID Status Reason Start Date Expiration Date Visits Re quested Visits Authorized [id number] 1 1 Telephone Encounter - Anne Marie [...] Visit date not found Patient Phone numbers: [phone] (home) Request is for script(s) to be [...] Active Member Role Status Dates Dr. Rosemary Doarn MD Primary Care Provider Active Dr. Mo [...] Status: Inactive Member Role Status Dates Dr. Roseamry Doran MD Primary Care Provider Active Dr. [...] MD Primary Care Provider Active Suze Prebish IMMIGRATION INSPECTOR, IMMIGRATION INSPECTOR-C Attending Provider, Referring Pr ovider Active Team [...] Mitchell MD Emergency Provider Active Dr. Sae aCrballo MD Admit Provider, Attending Provider Active Team [...] Rosemary Doran MD Primary Care Provider Active Managed Care Coordinator Relationship Specialty Start Date End Date Alexandra Hagen [address] [facility] [address] [place] [id number] PCP - General Family Medicine 06/20/23 Team [...] Member Role Status Dates Dr. Kvng Ochoa , Primary Care Provider Active Start: September 11, [...] September 13, 2024 Team Status: Active Member Role/Relationship Status Dates Dr. Kvng Ochoa DO Primary Care Provider Active Team Status: Inactive Member Role/Relationship Status Dates Dr. Alexandra Hagen MD Primary Care Provider Active Start: August 18, 2024 End: August 18, 2024 Cesar MARTINEZ MD Attending Provider Active St art: August 18, 2024 End: August 18, 2024 Team Status: Inactive Member Role/Relationship Status Dates Dr. Anoop Blackmon MD Attending [...] September 08, 2024 Team Status: Inactive Member Role/Relationship Status Dates Dr. Kvng Ochoa DO Primary [...] September 11, 2024 Team Status: Active Member Role/Relationship Status Dates Dr. Kvng Ochoa DO Primary [...] September 11, 2024 Team Status: Inactive Member Role/Relationship Status Dates Dr. Kvng Ochoa DO Primary Care Provider Active Start: September 13, 2024 End: September 13, 2024 Dr. Kvng Ochoa DO Referring Provider Active Start: September 13, 2024 End: September 13, 2024 Dr. Anant Juarez MD Attending Provider Active Start: September 13, 2024 End: September 13, 2024 Team Status: Inactive Member Role/Relationship Status [facility]ates Dr. Kvng Ochoa DO Primary Care Provider Active Start: September 13, 2024 End: September 13, 2024 Dr. Anant Juarez MD Attending Provider Active Start: September 13, 2024 End: September 13, 2024 Dr. Anant Juarez MD Referring Provider Active Start: September 13, 2024 End: September 13, 2024 Team Status: Active Member Role/Relationship Status Dates Dr. Kvng Ochoa DO Primary Care Provider Active Start: September 17, 2024 Cesar MARTINEZ MD Attending Provider Active St art: September 17, 2024 Team Status: Active Member Role/Relationship Status Dates Dr. Kvng Ochoa DO Primary Care Provider Active Start: September 22, 2024 Dr. Kvng MARTINEZ MD Attending Provider Active Start: September 22, 2024 Dr. Kvng MARTINEZ MD Referring Provider Active Start: September 22, 2024 Team Status: Active Member Role/Relationship Status Dates Dr. Kvng Ochoa DO Primary Care Provider Active Start: September 24, 2024 Cesar MARTINEZ MD Attending Provider Active St art: September 24, 2024 Team Status: Active Member Role/Relationship Status Dates Dr. Kvng Ochoa DO Primary Care Provider Active Start: October 04, 2024 Cesar MARTINEZ MD Attending Provider Active St art: October 04, 2024 Team Status: Active Member Role/Relationship Status Dates Dr. Kvng Ochoa DO Primary Care Provider Active Start: October 11, 2024 Dr. Kvng MARTINEZ MD Attending Provider Active Start: October 11, 2024 Dr. Kvng MARTINEZ MD Referring Provider Active Start: October 11, 2024 Team Status: Active Member Role/Relationship Status Dates Dr. Kvng Ochoa DO Primary Care Provider Active Start: October 25, 2024 Dr. Kvng MARTINEZ MD Attending Provider Active Start: October 25, 2024 Team Status: Active Member Role/Relationship Status Dates Dr. Kvng Ochoa DO Primary Care Provider Active Start: November 08, 2024 Dr. Kvng MARTINEZ MD Attending Provider Active Start: November 08, 2024 Team Status: Inactive Member Role/Relationship Status Dates Dr. Kvng Ochoa DO Primary Care Provider Active Start: November 22, 2024 End: November 22, 2024 Dr. Kvng Ochoa DO Referring Provider Active Start: November 22, 2024 End: November 22, 2024 NADIA Mcdonald Attending Provider Active St art: November 22, 2024 End: November 22, 2024 Team Status: Active Member Role/Relationship Status Dates Dr. Kvng Ochoa DO Primary Care Provider Active Start: November 22, 2024 NADIA Mcdonald Attending Provider Active St art: November 22, 2024 NADIA Mcdonald Referring Provider Active St art: November 22, 2024 Team Status: Inactive Member Role/Relationship Status Dates Dr. Kvng Ochoa DO Primary Care Provider Active Start: November 22, 2024 End: November 22, 2024 NADIA Mcdonald Attending Provider Active St art: November 22, 2024 End: November 22, 2024 NADIA Mcdonald Referring Provider Active St art: November 22, 2024 End: November 22, 2024 Scheduled Active and Recently Administ ered [...] Automatic Transfer Provider)2131 (Given - Provider: Kirsty Vicente, RN - Comment: bs 189) 2146 (Given - Provider: Kirsty Vicente, JAYME) lamoTRIgine (LaMICtal) tablet 50 mg 50 mg, Oral, 2 times daily, First dose on Fri06/17/23 at 2145 0841 (Given - Provider: Odessa Wayne RN)151 (MAR [...] 0840 (Given - Provider: Odessa Wayne RN)1512 (MAR Hold - Provider: Automatic Transfer Provider - Reason: Patient not available)2025 (MAR Unhold - Provider: Automatic Transfer Provider)2126 (Given - Provider: Kirsty Vicente RN) 0837 (Given - Provider: Leona Sidhu RN)2147 (Given - Provider: Kirsty Vicente RN) 09 (Given - Provider: Juanjo Villalba, RN) pantoprazole [...] (MAR Unhold - Provider: Automatic Transfer Provider) 0540 [...] from all sources in 24 hours. 1511 ([facility] Hold - Provider: Automatic Transfer Provider - Reason: Patient not available)2025 ([facility] Unhold - Provider: Automatic Transfer Provider) acetaminophen (Tylenol) tablet 650 mg(Linked Group 2) 650 mg, Oral, Every 6 hours PRN, mild pain (1-3), fever, For temp greater than 100.4 F (38 C), Starting on Fri06/16/23 at 1639, Maximum dose of acetaminophen is 4000 mg from all sources in 24 hours. 151 ([facility] Hold - Provider: Automatic Transfer Provider - Reason: Patient not available)2025 ([facility] Unhold - Provider: Automatic Transfer Provider) dextrose 5 % infusion 100 mL/hr, IntraVENous, PRN, Blood sugar less than 70mg/dL, Starting on Fri06/17/23 at 2131, Start infusion following administration of dextrose 50% or glucagon. 1511 ([facility] Hold - Provider: Automatic Transfer Provider - Reason: Patient not available)2025 ([facility] Unhold - Provider: Automatic Transfer Provider) dextrose [...] Glucostabilizer, dose as instructed per system. 1511 ([facility] Hold - Provider: Automatic Transfer Provider - Reason: Patient not available)2025 ([facility] Unhold - Provider: Automatic Transfer Provider) glucagon [...] 15 minutes x2 and notify provider. 1511 ([facility] Hold - Provider: Automatic Transfer Provider - Reason: Patient not available)2025 ([facility] Unhold - Provider: Automatic Transfer Provider) glucose [...] 15 minutes x2 and notify provider. 1511 ([facility] Hold - Provider: Automatic Transfer Provider - Reason: Patient not available)2025 ([facility] Unhold - Provider: Automatic Transfer Provider) HYDROmorphone [...] of each other unless specifically ordered. 1511 ([facility] Hold - Provider: Automatic Transfer Provider - Reason: Patient not available)2025 ([facility] Unhold - Provider: Automatic Transfer Provider) naloxone (Narcan) injection 0.4 mg 0.4 mg, IntraVENous, Every 5 min PRN, opioid reversal, respiratory depression, Starting on Fri06/16/23 at 1647, +++ For RR <10, pinpoint pupils, over sedation for opioid reversal - MUST notify regional driver provider immediately after first dose, may give IM or SQ if no IV access +++ 1511 ([facility] Hold - Provider: Automatic Transfer Provider - Reason: Patient not available)2025 ([facility] Unhold - Provider: Automatic Transfer Provider) ondansetron (Zofran) injection 4 mg(Linked Group 3) 4 mg, IntraVENous, Every 6 hours PRN, nausea, vomiting, Starting on Fri06/16/23 at 1639, 1st Line. Give IV if patient is unable to take orally. If inadequate response within 60 minutes, proceed to next-line agent or contact provider if no further options ordered. 151 ([facility] Hold - Provider: Automatic Transfer Provider - Reason: Patient not available)2025 ([facility] Unhold - Provider: Automatic Transfer Provider) ondansetron [...] blister pack until just before administering. 1511 ([facility] Hold - Provider: Automatic Transfer Provider - Reason: Patient not available)2025 ([facility] Unhold - Provider: Automatic Transfer Provider) oxyCODONE (Roxicodone) immediate release tablet 2.5 mg(Linked Group 4) 2.5 mg, Oral, Every 4 hours PRN, moderate pain (4-6), Starting on Fri06/16/23 at 1639 151 ([facility] Hold - Provider: Automatic Transfer Provider - Reason: Patient not available)2025 ([facility] Unhold - Provider: Automatic Transfer Provider) 0924 (See Alternative - Provider: Juanjo Villalba RN) oxyCODONE (Roxicodone) immediate release tablet 5 mg(Linked Group 4) 5 mg, Oral, Every 4 hours PRN, severe pain (7-10), Starting on Fri06/16/23 at 1639 151 ([facility] Hold - Provider: Automatic Transfer Provider - Reason: Patient not available)2025 ([facility] Unhold - Provider: Automatic Transfer Provider) 0924 (Given - Provider: Juanjo Villalba RN) polyethylene glycol (PEG) 3350 (Miralax) packet 17 g 17 g, Oral, Daily PRN, constipation, Starting on Fri06/16/23 at 1639, 1st line for treatment of constipation - give scheduled if no bowel movement in past 24 hours. 151 ([facility] Hold - Provider: Automatic Transfer Provider - Reason: Patient not available)2025 (MAR Unhold - Provider: Automatic Transfer Provider) sodium [...] BE BASED ON THE PRIMARY CLINICAL RECORDS. [employer] provides no warranty or guarantee of the accuracy or completeness of information in this document.
--- OUTSIDE RECORDS SUMMARY | 2024-12-24 03:51 | XMS RPT_ITS | CCD ---
Author Organization [facility] Care Team Providers Care Senior Actuarial Analyst Name Role Phone LISHNEVSKI, ALEXIA Unavailable Unavailable [...] Unavailable Patito Gonzalez Unavailable Nirmal Kemp Unavailable [phone] Mohan Álvarez Unavailable [phone] Bishop, Rickey Clive Unavailable Rosemary Doran Primary Care Provider Lishnnéstorski, Alexia Primary Care Provider Zenaida Henderson Unavailable Dr. Rosemary Doran Primary Care Provider Dr. Rosemary Doran Referring Provider Roof ENGINEER THIRD ASSISTANT, ENGINEER THIRD ASSISTANT-Adeel Arnett Attending Provider Dr. Rosemary Doran Primary [...] Provider Jerrica LENNON, Dr. Ny Attending Provider Dr. Anant Juarez MD Referring Provider Dr. [...] Unavailable Kvng Ochoa Primary Care Unavailable Douglas, Lawtell Attending Unavailable Douglas, Cesar Attending Unavailable Jolliff, [...] Care Unavailable Kvng Whalen Attending Unavailable Douglas, Lawtell Referring Unavailable Douglas, Lawtell Attending Unavailable Jolliff, Alexandra S Primary Care [...] Unavailable Jolliff, Alexandra S Primary Care Unavailable Cohoa OLS, Kvng Attending Unavailable Jolliff, Alexandra S Primary Care Unavailable Ochoa OLS, Kvng Attending Unavailable Ochoa, Kvng Primary Care Unavailable Ochoa OLS, Kvng Attending Unavailable Ochoa, Kvng Primary Care Unavailable Douglas, Lawtell Attending Unavailable Allergies Allergy Classification Reported Allergen(s) Allergy Type Date of Onset Reaction(s) Facility (20 sources) atorvastatin; Translations: [ATORVASTATIN] Drug Allergy 5 Other: See Comments [facility] Repository (20 sources) codeine; Translations: [CODEINE] Drug Allergy 5 Unknown [facility] Repository (20 sources) Latex; Translations: [LATEX] Propensity to adverse reactions (disorder) 5 Rash, Itching [facility] Repository (20 sources) meperidine; Translations: [MEPERIDINE] Drug Allergy 5 GI Upset [facility] Repository (20 sources) rosuvastatin; Translations: [ROSUVASTATIN] Drug Allergy 5 Other: See Comments [facility] Repository (20 sources) Amiodarone Drug Allergy 2 Hair falling out in gobs, hair loss [facility] (1 source) Amiodarone Drug Allergy 5 [facility] Repository Medications Current Medications Medication Drug [...] release tablet 2.5 mg polyethylene glycol 3350 60140 mg powder for oral solution (4 sources) [...] 1:03am Closed 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 lumbar vertebra 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 Chronic kidney disease 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 (current) use 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 Chronic kidney disease, [...] sources) Long-term current use of anticoagulant; Translations: [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 (current) use 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] Onset: 11-27-2018 11-27-2018 Episodic Other aftercare (2 sources) 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 [facility]. PTV is compressible. LT PerV is compressible. [...] is patent and compressible . Ordering Physician: Yinak Johnson Referring Physician: Yinka Johnson Performed By: Lucas Watts, T 11/23/242215 Date _ Jamal [place] MD CC: Dr. Kvng Ochoa, DO; NADIA Mcdonald ~ Date Dictated: 11/22/24920 Date Transcribed: 11/23/242215 Chiropractor Sole Practitioner: Signed [facility] Other Phone: Cardiology Visit Reporton Cardiology Visit Report [facility] [address] [place] [address] OFFICE VISIT Date of Service: 11/22/24 MR#: [id number] Acct: [id number] Name: EZRA GONZALEZ #: [id number] : 1935 Provider: NADIA Mcdonald Age/Sex: 89/F Location: [facility] Status: Signed HPI HPI History of Present [...] back into atrial fibrillation. She resides at [facility]. 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 Normal [facility] Venous Duplex US, Unilateral on 11-22-2024 Venous Duplex US, Unilateral [facility] [address] [place] [address] Venous Duplex US, Unilateral 11/22/24 0921 MR#: [id number] Acct: [id number] Name: EZRA GONZALEZ Rep #: [id number] : 1935 89 From: Jamal [place] MD [...] and/or faxed to T/P Trunk is compressible. [facility]. PTV is compressible. LT PerV [...] Mcdonald Date Dictated: 11/22/24920 Date Transcribed: 11/23/242215 Chiropractor Sole Practitioner: Signed Normal [facility] International normalized rat io (INR) measurement by fingerstickOrdered By: Kvng Ochoa on 11-08-2024 INR Coag (BldC) [Relative time] 2.8 [facility] Comment on above: Critical Value > 4.0 Whole blood prothrombin time Ordered By: Kvng Ochoa on 11-08-2024 PT Coag (Bld) [Time] 29.6 s High 11.7-14.9 [facility] normalized rat io (INR) calculationOrdered By: Kvng Ochoa on 10-25-2024 INR Coag (Bld) [Relative time] 3.3 {INR} [facility] Prothrombin timeOrdered By: Kvng Ochoa on 10-25-2024 PT Coag (PPP) [Time] 34.2 s High 11.7-14.9 [facility] normalized rat io (INR) measurement by fingerstickOrdered By: Kvng Ochoa on 10-11-2024 INR Coag (BldC) [Relative time] 2.8 [facility] Comment on above: Critical Value > 4.0 Whole blood prothrombin time Ordered By: Kvng Ochoa on 10-11-2024 PT Coag (Bld) [Time] 29.0 s High 11.7-14.9 [facility] normalized rat io (INR) measurement by fingerstickOrdered By: Cesar Cole on 10-04-2024 INR Coag (BldC) [Relative time] 3.4 [facility] Comment on above: Critical Value > 4.0 Whole blood prothrombin time Ordered By: Cesar Cole on 10-04-2024 PT Coag (Bld) [Time] 34.8 s High 11.7-14.9 [facility] normalized rat io (INR) measurement by fingerstickOrdered By: Cesar Cole on 09-24-2024 INR Coag (BldC) [Relative time] 2.0 [facility] Comment on above: Critical Value > 4.0 Whole blood prothrombin time Ordered By: Cesar Cole on 09-24-2024 PT Coag (Bld) [Time] 21.6 s High 11.7-14.9 [facility] Anion gap in Serum or Plasma Ordered By: Kvng Ochoa on 09-22-2024 Anion gap [Moles/Vol] 12 mmol/L 5-15 [facility] BUN/creatinine ratioOrdered By: Kvng Ochoa on 09-22-2024 Urea nitrogen/Creatinine [Mass ratio] 29.4 mg/mg High 10-20 [facility] Calculated very low density lipoprotein (VLDL) cholesterol measurementOrdered By: Kvng Ochoa on 09-22-2024 Calculated very low density lipoprotein (VLDL) cholesterol measurement 24 mg/dL 5-40 [facility] Carbon dioxide, total [Moles /volume] in Central venous bloodOrdered By: Kvng Ochoa on 09-22-2024 CO2 [Moles/Vol] 23.8 mmol/L 21.0-32.0 [facility] Chloride assayOrdered By: Costa Ochoa on 09-22-2024 Chloride [Moles/Vol] 105 mmol/L 98-108 [facility] Glomerular filtration rate ( GFR) estimation/1.73 sq m using serum, plasma, or whole bOrdered By: Kvng Ochoa on 09-22-2024 GFR/1.73 sq M.predicted among non-blacks MDRD (S/P/Bld) [Vol rate/Area] 52 mL/min/{1.73_m2} Low >60 [facility] Comment on above: mL/min/1.73m2 CKD-EP I Creatinine Equation (2020) LDL calc ser/plasOrdered By: Kvng Ochoa on 09-22-2024 Cholesterol in LDL [Mass/Vol] 109 mg/dL [facility] Comment on above: Syebkwvjit=197-668 m g/dL & Higher Yqzd=773 mg/dL or greater Potassium measurement (mass/ volume)Ordered By: Kvng Ochoa on 09-22-2024 Potassium (Unsp spec) [Mass/Vol] 4.8 mmol/L 3.3-5.1 [facility] Screening total cholesterol/ high density lipoprotein (HDL) cholesterol ratioOrdered By: Kvng Ochoa on 09-22-2024 Cholesterol.total/Cholest felipe in HDL [Mass ratio] 3.13 {ratio} [facility] Serum creatinine measurement (mass/volume)Ordered By: Kvng Ochoa on 09-22-2024 Creatinine [Mass/Vol] 1.03 mg/dL 0.70-1.20 [facility] Serum glucose measurement (m ass/volume)Ordered By: Kvng Ochoa on 09-22-2024 Glucose [Mass/Vol] 123 mg/dL High 70-99 [facility] Serum or plasma calcium viktoria urement (mass/volume)Ordered By: Kvng Ochoa on 09-22-2024 Calcium [Mass/Vol] 9.0 mg/dL 7.6-11.0 [facility] Serum or plasma cholesterol in HDL measurement (mass/volume)Ordered By: Kvng Ochoa on 09-22-2024 Cholesterol in HDL [Mass/Vol] 62 mg/dL >40 [facility] Comment on above: National Cholesterol Education Program (NCEP) guidelines:<40 mg/dL: Low HDL-cholesterol (major risk factor for CHD)>= 60 mg/dL: High HDL-cholesterol (negative risk factor for CHD)HDL-cholesterol is affected by a number of factors, e.g. smoking, exercise, hormones, sex and age. Serum or plasma cholesterol measurement (mass/volume)Ordered By: Kvng Ochoa on 09-22-2024 Cholesterol [Mass/Vol] 195 mg/dL <201 [facility] Comment on above: Cholesterol level, D esirable <200 mg/dLBorderline high cholesterol 200-239 mg/dLHigh cholesterol >=240 mg/dLRecommendations of the NCEP Adult Treatment Panel for the following risk-cutoff thresholds for the [place] population. Serum or plasma urea nitroge n measurement (mass/volume)Ordered By: Kvng Ochoa on 09-22-2024 Urea nitrogen [Mass/Vol] 30 mg/dL High 4-19 [facility] Sodium levelOrdered By: Dru Ochoa on 09-22-2024 Sodium [Moles/Vol] 140 mmol/L 133-145 [facility] Triglycerides measurementOrd ered By: Kvng Ochoa on 09-22-2024 Triglyceride [Mass/Vol] 118 mg/dL <199 [facility] Comment on above: The drugs N-Acetylcy steine and Metamizole may falsely depress this assay. Normal range: <150 mg/dLBorderline High: 150-199 mg/dLHigh: 200-499 mg/dLVery High: >500 mg/dL International normalized rat io (INR) measurement by fingerstickOrdered By: Cesar Cole on 09-17-2024 INR Coag (BldC) [Relative time] 1.5 [facility] Comment on above: Critical Value > 4.0 Whole blood prothrombin time Ordered By: Cesar Cole on 09-17-2024 PT Coag (Bld) [Time] 17.2 s High 11.7-14.9 [facility] KEPPRA (LEVETIRACETAM)on KEPPRA <2.0 Abnormal 10.0-40.0 [facility] Comment on above: Performed By: #### L 503.5510, L3310.0000, L3300.4400 ####[facility] [address] [place], [place], [id number] Lamotrigine (Lamictal) Level on 09-16-2024 LAMOTRIGINE 1.7 ug/mL Low 2.0-20.0 [facility] Comment on above: Result Comment: Dete ction Limit = 1.0 Performed at: [facility] [address] [id number] Operations Forester: Brandon Wells MD, Phone: [phone] Performed By: #### L 503.5510, L3310.0000, [id number] ####[facility] [address] [place], [place], [id number] Ammoniaon 09-13-2024 Ammonia (P) [Moles/Vol] 28.9 umol/L Normal 11-51 [facility] Comment on above: Performed By: #### L 503.5510, L3310.0000, [id number] ####[facility] [address] [place], [place], [id number] LevetiracetamOrdered By: Royce Juarez on 09-13-2024 levETIRAcetam [Mass/Vol] ug/mL Low 10.0-40.0 [facility] Neurology Visit Reporton Neurology Visit Report [facility] [address], [address] [place], [place] [address] OFFICE VISIT Date of Service: 09/13/24 MR#: [id number] Acct: [id number] Name: EZRA GONZALEZ Rep #: [id number] : 1935 Provider: Dr. Anant baez MD Age/Sex: 89/F Location: [facility]. 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 Normal [facility] Serum or plasma lamotrigine measurement (mass/volume)Ordered By: Anant Juarez on 09-13-2024 lamoTRIgine [Mass/Vol] 1.7 ug/mL Low 2.0-20.0 [facility] Comment on above: Detection Limit = 1. 0Performed at: [facility] [address] [id number] Director: Brandon Wells MD, Phone: [phone] Venous blood ammonia measure mentOrdered By: Anant Juarez on 09-13-2024 Ammonia (P) [Moles/Vol] 28.9 umol/L 11-51 [facility] Lamotrigine (Lamictal) Level on 09-12-2024 LAMOTRIGINE 1.2 ug/mL Low 2.0-20.0 [facility] Comment on above: Result Comment: Dete ction Limit = 1.0 Performed at: [address] [id number] Operations Forester: Brandon Wells MD, Phone: [phone] Performed By: #### L 100.0100, L500.2500, L300.3900, L3300.4400 ####[facility] [address] [place], [place], [id number] Urine Cultureon 09-12-2024 [facility] Klebsiella pneumonia e sp pneum [place] Count 80,000-100,000 Klebsiella pneumoniae sp pneum: REACTION [...] TMP SMX Islt MELINDA <=20 S Normal [facility] Comment on above: Performed By: #### M 100.2200 ####[facility] [address] [place], [address] Anion gap in Serum or Plasma Ordered By: Matthew Oro on 09-11-2024 Anion gap [Moles/Vol] 12 mmol/L 08-12 [facility] BUN/creatinine ratioOrdered By: Matthew Oro on 09-11-2024 Urea nitrogen/Creatinine [Mass ratio] 30.4 mg/mg [address] [facility] Basic Metabolic Profile (BMP )on 09-11-2024 BUN/CRE 30.[address] Comment on above: Order Comment: Comme nts: NPO at [place] prior to lipid panel Performed By: #### L 500.4100, L100.0500, L500.2500 #### [facility] [address] [place], [address] Calcium [Mass/Vol] 8.8 mg/dL Normal 7.6-11.0 [facility] Comment on above: Order Comment: Comme nts: NPO at [place] prior to lipid panel Performed By: #### L 500.4100, L100.0500, L500.2500 #### [facility] [address] [place], [address] Chloride [Moles/Vol] 105 mmol/L Normal 98-108 [facility] Comment on above: Order Comment: Comme nts: NPO at [place] prior to lipid panel Performed By: #### L 500.4100, L100.0500, L500.2500 #### [facility] [address] [place], [address] CO2 [Moles/Vol] 21.6 mmol/L Normal 21.0-32.0 [facility] Comment on above: Order Comment: Comme nts: NPO at [place] prior to lipid panel Performed By: #### L 500.4100, L100.0500, L500.2500 #### [facility] [address] [place], [address] Creatinine [Mass/Vol] 0.91 mg/dL Normal 0.70-1.20 [facility] Comment on above: Order Comment: Comme nts: NPO at [place] prior to lipid panel Performed By: #### L 500.4100, L100.0500, L500.2500 #### [facility] [address] [place], [address] ECRCL 41.34 ml/min Low 50-250 [facility] Comment on above: Order Comment: Comme nts: NPO at [place] prior to lipid panel Performed By: #### L 500.4100, L100.0500, L500.2500 #### [facility] [address] [place], [address] GAP 12 Normal 5-15 [facility] Comment on above: Order Comment: Comme nts: NPO at [place] prior to lipid panel Performed By: #### L 500.4100, L100.0500, L500.2500 #### [facility] [address] [place], [address] GFR/1.73 sq M.predicted among non-blacks MDRD (S/P/Bld) [Vol rate/Area] 61 mL/min/{1.73_m2} Normal >60 [facility] Comment on above: Order Comment: Comme nts: NPO at [place] prior to lipid panel Result Comment: mL/m in/1.73m2 CKD-EPI Creatinine Equation (2020) Performed By: #### L 500.4100, L100.0500, L500.2500 #### [facility] [address] [place], [address] Glucose [Mass/Vol] 118 mg/dL High 70-99 [facility] Comment on above: Order Comment: Comme nts: NPO at [place] prior to lipid panel Performed By: #### L 500.4100, L100.0500, L500.2500 #### [facility] [address] [place], [address] Potassium [Moles/Vol] 4.4 mmol/L Normal 3.3-5.1 [facility] Comment on above: Order Comment: Comme nts: NPO at [place] prior to lipid panel Performed By: #### L 500.4100, L100.0500, L500.2500 #### [facility] [address] [place], [address] Sodium [Moles/Vol] 139 mmol/L Normal 133-145 [facility] Comment on above: Order Comment: Comme nts: NPO at [place] prior to lipid panel Performed By: #### L 500.4100, L100.0500, L500.2500 #### [facility] [address] [place], [address] Urea nitrogen [Mass/Vol] 28 mg/dL High 4-19 [facility] Comment on above: Order Comment: Comme nts: NPO at [place] prior to lipid panel Performed By: #### L 500.4100, L100.0500, L500.2500 #### [facility] [address] [place], [address] CBC-Complete Blood Cnt No Di ffon 09-11-2024 Erythrocyte distribution width (RBC) [Ratio] 12.8 % Normal 11.6-14.6 [facility] Comment on above: Performed By: #### L 500.4100, L100.0500, L500.2500 #### [facility] [address] [place], [address] Hematocrit (Bld) [Volume fraction] 39.7 % Normal 37-47 [facility] Comment on above: Performed By: #### L 500.4100, L100.0500, L500.2500 #### [facility] [address] [place], [address] Hemoglobin (Bld) [Mass/Vol] 13.1 g/dL Normal 12.0-15.0 [facility] Comment on above: Performed By: #### L 500.4100, L100.0500, L500.2500 #### [facility] [address] [place], [address] MCH (RBC) [Entitic mass] 30.3 pg Normal 27.0-32.0 [facility] Comment on above: Performed By: #### L 500.4100, L100.0500, L500.2500 #### [facility] [address] [place], [address] MCHC (RBC) [Mass/Vol] 33.0 g/dL Normal 32-36 [facility] Comment on above: Performed By: #### L 500.4100, L100.0500, L500.2500 #### [facility] [address] [place], [address] MCV (RBC) [Entitic vol] 91.7 fL Normal 81-99 [facility] Comment on above: Performed By: #### L 500.4100, L100.0500, L500.2500 #### [facility] [address] [place], [address] Platelet mean volume (Bld) [Entitic vol] 10.7 fL Normal 6.2-12.0 [facility] Comment on above: Performed By: #### L 500.4100, L100.0500, L500.2500 #### [facility] [address] [place], [address] Platelets (Bld) [#/Vol] 271 10*3/uL Normal 150-450 [facility] Comment on above: Performed By: #### L 500.4100, L100.0500, L500.2500 #### [facility] [address] [place], [address] RBC (Bld) [#/Vol] 4.33 10*6/uL Normal 4.2-5.4 [facility] Comment on above: Performed By: #### L 500.4100, L100.0500, L500.2500 #### [facility] [address] [place], [address] RDW SD 42.8 fl Normal 35.1-43.9 [facility] Comment on above: Performed By: #### L 500.4100, L100.0500, L500.2500 #### [facility] [address] [place], [address] WBC (Bld) [#/Vol] 12.2 10*3/uL High 4.4-11.0 [facility] Comment on above: Performed By: #### L 500.4100, L100.0500, L500.2500 #### [facility] [address] [place], [address] Calculated very low density lipoprotein (VLDL) cholesterol measurementOrdered By: Matthew Oro on 09-11-2024 Calculated very low density lipoprotein (VLDL) cholesterol measurement 16 mg/dL 5-40 [facility] Carbon dioxide, total [Moles /volume] in Central venous bloodOrdered By: Matthew Oro on 09-11-2024 CO2 [Moles/Vol] 21.6 mmol/L 21.0-32.0 [facility] Chloride assayOrdered By: Urban Oro on 09-11-2024 Chloride [Moles/Vol] 105 mmol/L 98-108 [facility] Discharge Instructionon 08-29 Discharge Instruction [facility] Medical Records Department [address] [place] [address] Instructions for Home/Discharge Instructions 09/11/24 1214 MR#: [id number] Acct: [id number] Name: EZRA GONZALEZ Rep #: [id number] : 1935 89 From: Matthew Oro DO [...] Thurman DO; Ashu Leonard MD Signed Normal [facility] Electroencephalogramon 09-11 Electroencephalogram [facility] Pulmonary Services/Neurology [address] [place] [address] MR#: [id number] Acct: [id number] Name: EZRA GONZALEZ Rep #: [id number] : 1935 89 From: Castillo Jones MD Referring Dr: Status: ADM MARIELOS Location: [place] [address] Date: 09/10/24 Sex: F C EEG Results Procedure Details EEG Procedure Details: Inpatient routine EEG report performed at [facility] Study start time: 1326 on 09/11/24 [...] Date Dictated: 09/11/24 150 Date Transcribed: 09/11/241501 Chiropractor Sole Practitioner: [place] Signed Normal [facility] Erythrocyte distribution wid th ratioOrdered By: Matthew Oro on 09-11-2024 Erythrocyte distribution width (RBC) [Ratio] 12.8 % 11.6-14.6 [facility] Erythrocyte distribution wid th standard deviationOrdered By: Matthew Oro on 09-11-2024 Erythrocyte distribution width (RBC) [Ratio] 42.8 fl 35.1-43.9 [facility] Glomerular filtration rate ( GFR) estimation/1.73 sq m using serum, plasma, or whole bOrdered By: Matthew Oro on 09-11-2024 GFR/1.73 sq M.predicted among non-blacks MDRD (S/P/Bld) [Vol rate/Area] 61 mL/min/{1.73_m2} >60 [facility] Comment on above: mL/min/1.73m2 CKD-EP I Creatinine Equation (2020) Hematocrit Auto (Bld) [Volum e fraction]Ordered By: Matthew Oro on 09-11-2024 Hematocrit (Bld) [Volume fraction] 39.7 % 37-47 [facility] Hemoglobin measurementOrdere d By: Matthew Oro on 09-11-2024 Hemoglobin (Bld) [Mass/Vol] 13.1 g/dL 12.0-15.0 [facility] LDL calc ser/plasOrdered By: Matthew Baemanuela on 09-11-2024 Cholesterol in LDL [Mass/Vol] 100 mg/dL [facility] Comment on above: Gsnqocgkzr=480-938 m g/dL & Higher Fjna=420 mg/dL or greater Lipid Profileon 09-11-2024 CHOL:HDL 3.03 Normal [facility] Comment on above: Order Comment: Comme nts: NPO at [place] prior to lipid panel Performed By: #### L 500.4100, L100.0500, L500.2500 #### [facility] [address] [facility] [place], [address] Cholesterol [Mass/Vol] 172 mg/dL Normal <=200 [facility] Comment on above: Order Comment: Comme nts: NPO at [place] prior to lipid panel Result Comment: Chol esterol level, Desirable <200 mg/dL Borderline high cholesterol 200-239 mg/dL High cholesterol >=240 mg/dL Recommendations of the NCEP Adult Treatment Panel for the following risk-cutoff thresholds for the [place] population. Performed By: #### L 500.4100, L100.0500, L500.2500 #### [facility] [address] [facility] [place], [address] Cholesterol in HDL [Mass/Vol] 57 mg/dL Normal [facility] Comment on above: [...] By: #### L 500.4100, L100.0500, L500.2500 #### [facility] [address] [place], [address] Cholesterol in LDL [Mass/Vol] 100 mg/dL Normal [facility] Comment on above: Order Comment: Comme nts: NPO at [place] prior to lipid panel Result Comment: Bord wcmvtt=804-486 mg/dL Higher Ghka=566 mg/dL or greater Performed By: #### L 500.4100, L100.0500, L500.2500 #### [facility] [address] [place], [address] Cholesterol in VLDL [Mass/Vol] 16 mg/dL Normal 5-40 [facility] Comment on above: Order Comment: Comme nts: NPO at [place] prior to lipid panel Performed By: #### L 500.4100, L100.0500, L500.2500 #### [facility] [address] [place], [address] Triglyceride [Mass/Vol] 78 mg/dL Normal [facility] Comment on above: Order Comment: Comme nts: NPO at [place] prior to lipid panel Result Comment: The drugs N-Acetylcysteine and Metamizole may falsely depress this assay. Normal range: <150 mg/dL Borderline High: 150-199 mg/dL High: 200-499 mg/dL Very High: >500 mg/dL Performed By: #### L 500.4100, L100.0500, L500.2500 #### [facility] [address] [place], [address] MCV (mean corpuscular volume ) determinationOrdered By: Matthew Oro on 09-11-2024 MCV (RBC) [Entitic vol] 91.7 fL 81-99 [facility] Mean corpuscular hemoglobin (MCH) determinationOrdered By: Matthew Oro on 09-11-2024 MCH (RBC) [Entitic mass] 30.3 pg 27.0-32.0 [facility] Mean corpuscular hemoglobin concentration (MCHC) determinationOrdered By: Matthew Oro on 09-11-2024 MCHC (RBC) [Mass/Vol] 33.0 g/dL 32-36 [facility] Mean platelet volume determi nationOrdered By: Matthew Oro on 09-11-2024 Platelet mean volume (Bld) [Entitic vol] 10.7 fL 6.2-12.0 [facility] Platelet countOrdered By: Urban Oro on 09-11-2024 Platelets (Bld) [#/Vol] 271 10*3/uL 150-450 [facility] Potassium measurement (mass/ volume)Ordered By: Matthew Oro on 09-11-2024 Potassium (Unsp spec) [Mass/Vol] 4.4 mmol/L 3.3-5.1 [facility] RBC Auto (Bld) [#/Vol]Ordere d By: Matthew Oro on 09-11-2024 RBC (Bld) [#/Vol] 4.33 10*6/uL 4.2-5.4 [facility] Screening total cholesterol/ high density lipoprotein (HDL) cholesterol ratioOrdered By: Matthew Oro on 09-11-2024 Cholesterol.total/Cholest felipe in HDL [Mass ratio] 3.03 {ratio} [facility] Serum creatinine measurement (mass/volume)Ordered By: Matthew rOo on 09-11-2024 Creatinine [Mass/Vol] 0.91 mg/dL 0.70-1.20 [facility] Serum glucose measurement (m ass/volume)Ordered By: Matthew Oro on 09-11-2024 Glucose [Mass/Vol] 118 mg/dL High 70-99 [facility] Serum or plasma calcium viktoria urement (mass/volume)Ordered By: Matthew Oro on 09-11-2024 Calcium [Mass/Vol] 8.8 mg/dL 7.6-11.0 [facility] Serum or plasma cholesterol in HDL measurement (mass/volume)Ordered By: Matthew Oro on 09-11-2024 Cholesterol in HDL [Mass/Vol] 57 mg/dL >40 [facility] Comment on above: National Cholesterol Education Program (NCEP) guidelines:<40 mg/dL: Low HDL-cholesterol (major risk factor for CHD)>= 60 mg/dL: High HDL-cholesterol (negative risk factor for CHD)HDL-cholesterol is affected by a number of factors, e.g. smoking, exercise, hormones, sex and age. Serum or plasma cholesterol measurement (mass/volume)Ordered By: Matthew Oro on 09-11-2024 Cholesterol [Mass/Vol] 172 mg/dL <201 [facility] Comment on above: Cholesterol level, D esirable <200 mg/dLBorderline high cholesterol 200-239 mg/dLHigh cholesterol >=240 mg/dLRecommendations of the NCEP Adult Treatment Panel for the following risk-cutoff thresholds for the [place] population. Serum or plasma urea nitroge n measurement (mass/volume)Ordered By: Matthew Oro on 09-11-2024 Urea nitrogen [Mass/Vol] 28 mg/dL High 4-19 [facility] Sodium levelOrdered By: All Oro on 09-11-2024 Sodium [Moles/Vol] 139 mmol/L 133-145 [facility] Triglycerides measurementOrd ered By: Matthew Oro on 09-11-2024 Triglyceride [Mass/Vol] 78 mg/dL <199 [facility] Comment on above: The drugs N-Acetylcy steine and Metamizole may falsely depress this assay. Normal range: <150 mg/dLBorderline High: 150-199 mg/dLHigh: 200-499 mg/dLVery High: >500 mg/dL White blood cell (WBC) count Ordered By: Matthew Oro on 09-11-2024 WBC (Bld) [#/Vol] 12.2 10*3/uL High 4.4-11.0 [facility] Absolute lymphocyte countOrd ered By: Teri Garcia on 09-10-2024 Lymphocytes Auto (Unsp spec) [#/Vol] 1.91 10*3/uL 0.83-4.51 [facility] Absolute neutrophil countOrd ered By: Teri Garcia on 09-10-2024 Neutrophils (Bld) [#/Vol] 8.3 10*3/uL High 2.0-7.7 [facility] Activated partial thrombopla stin time (aPTT) in platelet poor plasma by coagulation aOrdered By: Teri Garcia on 09-10-2024 aPTT Coag (PPP) [Time] 31.8 s 24.1-36.2 [facility] Anion gap in Serum or Plasma Ordered By: Teri Garcia on 09-10-2024 Anion gap [Moles/Vol] 12 mmol/L 5-15 [facility] Automated lymphocyte count a s percentage of total leukocytesOrdered By: Teri Garcia on 09-10-2024 Lymphocytes/100 WBC Auto (Unsp spec) 16.6 % Low 19-41 [facility] BUN/creatinine ratioOrdered By: Teri Garcia on 09-10-2024 Urea nitrogen/Creatinine [Mass ratio] 34.8 mg/mg High 10-20 [facility] Basic Metabolic Profile (BMP )on 09-10-2024 BUN/CRE 34.8 RATIO High - [facility] Comment on above: Performed By: #### L 500.2500, L100.0100, L501.4021, L300.3900, L300.4310 ####[facility] [address] [place], [address] Calcium [Mass/Vol] 8.7 mg/dL Normal 7.6-11.0 [facility] Comment on above: Performed By: #### L 500.2500, L100.0100, L501.4021, L300.3900, L300.4310 ####[facility] [address] [place], [address] Chloride [Moles/Vol] 103 mmol/L Normal 98-108 [facility] Comment on above: Performed By: #### L 500.2500, L100.0100, L501.4021, L300.3900, L300.4310 ####[facility] [address] [place], [address] CO2 [Moles/Vol] 21.8 mmol/L Normal 21.0-32.0 [facility] Comment on above: Performed By: #### L 500.2500, L100.0100, L501.4021, L300.3900, L300.4310 ####[facility] [address] [place], [address] Creatinine [Mass/Vol] 1.05 mg/dL Normal 0.70-1.20 [facility] Comment on above: Performed By: #### L 500.2500, L100.0100, L501.4021, L300.3900, L300.4310 ####[facility] [address] [place], [address] ECRCL 33.63 ml/min Low 50-250 [facility] Comment on above: Performed By: #### L 500.2500, L100.0100, L501.4021, L300.3900, L300.4310 ####[facility] [address] [place], [address] GAP 12 Normal 5-15 [facility] Comment on above: Performed By: #### L 500.2500, L100.0100, L501.4021, L300.3900, L300.4310 ####[facility] [address] [place], [address] GFR/1.73 sq M.predicted among non-blacks MDRD (S/P/Bld) [Vol rate/Area] 51 mL/min/{1.73_m2} Low >60 [facility] Comment on above: Result Comment: mL/m in/1.73m2 CKD-EPI Creatinine Equation (2020) Performed By: #### L 500.2500, L100.0100, L501.4021, L300.3900, L300.4310 ####[facility] [address] [place], [address] Glucose [Mass/Vol] 131 mg/dL High 70-99 [facility] Comment on above: Performed By: #### L 500.2500, L100.0100, L501.4021, L300.3900, L300.4310 ####[facility] [address] [place], [address] Potassium [Moles/Vol] 4.4 mmol/L Normal 3.3-5.1 [facility] Comment on above: Result Comment: Hemo lysis present, Results??could be affected. ?? Performed By: #### L 500.2500, L100.0100, L501.4021, L300.3900, L300.4310 ####[facility] [address] [place], [address] Sodium [Moles/Vol] 137 mmol/L Normal 133-145 [facility] Comment on above: Performed By: #### L 500.2500, L100.0100, L501.4021, L300.3900, L300.4310 ####[facility] [address] [place], [address] Urea nitrogen [Mass/Vol] 37 mg/dL High 4-19 [facility] Comment on above: Performed By: #### L 500.2500, L100.0100, L501.4021, L300.3900, L300.4310 ####[facility] [address] [place], [address] Basophil percentageOrdered B y: Teri Garcia on 09-10-2024 Basophils/100 WBC (Bld) 0.4 % 0-1 [facility] Bilirubin Test strip Ql (U)O rdered By: Teri Garcia on 09-10-2024 Bilirubin Ql (U) Negative Negative [facility] Brain without Contraston Brain without Contrast [facility] Services [address] [place] [address] Brain without Contrast MR#: [id number] Acct: [id number] Name: EZRA GONZALEZ Rep #: [id number] : 1935 F 89 From: Matthias Márquez MD PCP: Dr. Kvng Ochoa, DO Status: ADM MARIELOS Study: Brain without Contrast Date of Exam: 09/10/24 Exam# [id number] Ordering Dr: Matthew Oro DO PROCEDURE: BRAIN [...] Atrophy and mild microvascular changes Reading Location: [facility] CC: Dr. Matthew Oro DO; Dr. Kvng Ochoa DO Chiropractor Sole Practitioner: Signed Normal [facility] CBC W/Diff, Automatedon 08-29 Absolute Lymph 1.91 X10 3/uL Normal 0.83-4.51 [facility] Comment on above: Performed By: #### L 500.2500, L100.0100, L501.4021, L300.3900, L300.4310 ####[facility] [address] [place], [address] Absolute Neut 8.3 X10 3/uL High 2.0-7.7 [facility] Comment on above: Performed By: #### L 500.2500, L100.0100, L501.4021, L300.3900, L300.4310 ####[facility] [address] [place], [address] Basophils/100 WBC (Bld) 0.4 % Normal 0-1 [facility] Comment on above: Performed By: #### L 500.2500, L100.0100, L501.4021, L300.3900, L300.4310 ####[facility] [address] [place], [address] Eosinophils/100 WBC (Bld) 1.2 % Normal 0-5 [facility] Comment on above: Performed By: #### L 500.2500, L100.0100, L501.4021, L300.3900, L300.4310 ####[facility] [address] [place], [address] Erythrocyte distribution width (RBC) [Ratio] 13.2 % Normal 11.6-14.6 [facility] Comment on above: Performed By: #### L 500.2500, L100.0100, L501.4021, L300.3900, L300.4310 ####[facility] [address] [place], [address] Hematocrit (Bld) [Volume fraction] 41.7 % Normal 37-47 [facility] Comment on above: Performed By: #### L 500.2500, L100.0100, L501.4021, L300.3900, L300.4310 ####[facility] [address] [place], [address] Hemoglobin (Bld) [Mass/Vol] 13.6 g/dL Normal 12.0-15.0 [facility] Comment on above: Performed By: #### L 500.2500, L100.0100, L501.4021, L300.3900, L300.4310 ####[facility] [address] [place], [address] IG% 0.400 Normal 0.0-0.9 [facility] Comment on above: Result Comment: IG% - Immature Granulocytes (promyelocytes, myelocytes and metamyelocytes) > 1% indicates that a LEFT SHIFT is Present. Performed By: #### L 500.2500, L100.0100, L501.4021, L300.3900, L300.4310 ####[facility] [address] [place], [address] Lymphocytes/100 WBC (Bld) 16.6 % Low 19-41 [facility] Comment on above: Performed By: #### L 500.2500, L100.0100, L501.4021, L300.3900, L300.4310 ####[facility] [address] [place], [address] MCH (RBC) [Entitic mass] 30.6 pg Normal 27.0-32.0 [facility] Comment on above: Performed By: #### L 500.2500, L100.0100, L501.4021, L300.3900, L300.4310 ####[facility] [address] [place], [address] MCHC (RBC) [Mass/Vol] 32.6 g/dL Normal 32-36 [facility] Comment on above: Performed By: #### L 500.2500, L100.0100, L501.4021, L300.3900, L300.4310 ####[facility] [address] [place], [address] MCV (RBC) [Entitic vol] 93.9 fL Normal 81-99 [facility] Comment on above: Performed By: #### L 500.2500, L100.0100, L501.4021, L300.3900, L300.4310 ####[facility] [address] [place], [address] Monocytes/100 WBC (Bld) 9.1 % Normal 0-10 [facility] Comment on above: Performed By: #### L 500.2500, L100.0100, L501.4021, L300.3900, L300.4310 ####[facility] [address] [place], [address] Neutrophils/100 WBC (Bld) 72.3 % High 47-70 [facility] Comment on above: Performed By: #### L 500.2500, L100.0100, L501.4021, L300.3900, L300.4310 ####[facility] [address] [place], [address] Nucleated RBC (Bld) [#/Vol] 0 10*3/uL Normal 0-5 [facility] Comment on above: Performed By: #### L 500.2500, L100.0100, L501.4021, L300.3900, L300.4310 ####[facility] [address] [place], [address] Platelet mean volume (Bld) [Entitic vol] 10.4 fL Normal 6.2-12.0 [facility] Comment on above: Performed By: #### L 500.2500, L100.0100, L501.4021, L300.3900, L300.4310 ####[facility] [address] [place], [address] Platelets (Bld) [#/Vol] 269 10*3/uL Normal 150-450 [facility] Comment on above: Performed By: #### L 500.2500, L100.0100, L501.4021, L300.3900, L300.4310 ####[facility] [address] [place], [address] RBC (Bld) [#/Vol] 4.44 10*6/uL Normal 4.2-5.4 [facility] Comment on above: Performed By: #### L 500.2500, L100.0100, L501.4021, L300.3900, L300.4310 ####[facility] [address] [place], [address] RDW SD 45.4 fl High 35.1-43.9 [facility] Comment on above: Performed By: #### L 500.2500, L100.0100, L501.4021, L300.3900, L300.4310 ####[facility] [address] [place], [address] WBC (Bld) [#/Vol] 11.5 10*3/uL High 4.4-11.0 [facility] Comment on above: Performed By: #### L 500.2500, L100.0100, L501.4021, L300.3900, L300.4310 ####[facility] [address] [place], [address] Carbon dioxide, total [Moles /volume] in Central venous bloodOrdered By: Teri Garcia on 09-10-2024 CO2 [Moles/Vol] 21.8 mmol/L 21.0-32.0 [facility] Chloride assayOrdered By: Antonio Garcia on 09-10-2024 Chloride [Moles/Vol] 103 mmol/L 98-108 [facility] Emergency Department Summary on 09-10-2024 Emergency Department Summary [facility] Medical Records Department [address] [place] [address] Emergency Department Summary 09/10/24 MR#: [id number] Acct: [id number] Name: EZRA GONZALEZ Rep #: [id number] : 1935 89 From: Teri Garcia DO PCP: Dr. Kvng Ochoa, DO Status:[facility] ER Location: ED HPI History of [...] son Wilfredo (her eldest son) phone number [phone]. He states that she follows with Dr. Juarez (neurology) and he suspects that this could be epileptic episodes. He also tells me that he talk to her about 615 this morning and she seemed a little off with her mentation as well as her pronunciation. 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 Normal [facility] Eosinophil percentageOrdered By: Teri Garcia on 09-10-2024 Eosinophils/100 WBC (Bld) 1.2 % 0-5 [facility] Erythrocyte distribution wid th ratioOrdered By: Teri Garcia on 09-10-2024 Erythrocyte distribution width (RBC) [Ratio] 13.2 % 11.6-14.6 [facility] Erythrocyte distribution wid th standard deviationOrdered By: Teri Garcia on 09-10-2024 Erythrocyte distribution width (RBC) [Ratio] 45.4 fl High 35.1-43.9 [facility] Glomerular filtration rate ( GFR) estimation/1.73 sq m using serum, plasma, or whole bOrdered By: Teri Garcia on 09-10-2024 GFR/1.73 sq M.predicted among non-blacks MDRD (S/P/Bld) [Vol rate/Area] 51 mL/min/{1.73_m2} Low >60 [facility] Comment on above: mL/min/1.73m2 CKD-EP I Creatinine Equation (2020) H AND P Exam - Hospitaliston 09-10-2024 H&P Exam - Hospitalist [facility] Medical Records Department [address] [place] [address] H P Exam - Hospitalist 09/10/24 1603 MR#: [id number] Acct: [id number] Name: EZRA GONZALEZ Rep #: [id number] : 1935 89 From: Matthew Oro DO PCP: Dr. Kvng Ochoa DO Status:ADM MARIELOS Location: [place] [address] HPI - General General Date of Admission: 09/10/24 Date of Service: 09/10/24 Chief Complaint: Dysarthria HPI Narrative EZRA GONZALEZ, is a 89 F who presented to [facility] ED on 09/10/2024 with dysarthria. Patient lives at [facility] living at [place]. Has history of seizures and is on [...] acute concerns at this time. 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 Normal [facility] Hematocrit Auto (Bld) [Volum e fraction]Ordered By: Teri Garcia on 09-10-2024 Hematocrit (Bld) [Volume fraction] 41.7 % 37-47 [facility] Hemoglobin measurementOrdere d By: Teri Garcia on 09-10-2024 Hemoglobin (Bld) [Mass/Vol] 13.6 g/dL 12.0-15.0 [facility] Immature granulocytes/100 WB C Auto (Bld)Ordered By: Teri Garcia on 09-10-2024 Immature granulocytes/100 WBC (Bld) 0.400 % 0.0-0.9 [facility] Comment on above: IG% - Immature Granu locytes (promyelocytes, myelocytes and metamyelocytes) > 1% indicates that a LEFT SHIFT is Present. International normalized rat io (INR) calculationOrdered By: Teri Garcia on 09-10-2024 INR Coag (Bld) [Relative time] 2.4 {INR} [facility] Ketones Test strip Ql (U)Ord ered By: Teri Garcia on 09-10-2024 Ketones Ql (U) Negative Negative [facility] L499.0042on 09-10-2024 Trop T High Sen 17 ng/L High <=14 [facility] Comment on above: Performed By: #### L 499.0042 #### [facility] [address] [place], [address] L499.0043on 09-10-2024 Trop T High Sen 15 ng/L High <=14 [facility] Comment on above: Performed By: #### L 499.0043 #### [facility] [address] [place], [address] L501.4021on 09-10-2024 Trop T High Sen 18 ng/L High <=14 [facility] Comment on above: Performed By: #### L 500.2500, L100.0100, L501.4021, L300.3900, L300.4310 ####[facility] [address] [place], [address] MCV (mean corpuscular volume ) determinationOrdered By: Teri Garcia on 09-10-2024 MCV (RBC) [Entitic vol] 93.9 fL 81-99 [facility] Magnetic resonance imaging r eportOrdered By: Matthias Márquez on 09-10-2024 Study report [facility] Imaging Services [address] [place], [place] [address] Brain without Contrast MR#: [id number] Acct: [id number] Name: EZRA GONZALEZ Rep #: [id number] : 1935 F 89 From: Bill Márquez MD PCP: Dr. Kvng Ochoa, DO Status: ADM MARIELOS Study:Brain without Contrast Date of Exam: 09/10/24 Exam# [id number] Ordering Dr: Matthew Patel DO PROCEDURE: BRAIN [...] Atrophy and mild microvascular changes Reading [facility] CC: Dr. Matthew Oro, ; Dr. Kvng Ochoa DO ~ Chiropractor Sole Practitioner: Signed [facility] Mean corpuscular hemoglobin (MCH) determinationOrdered By: Teri Garcia on 09-10-2024 MCH (RBC) [Entitic mass] 30.6 pg 27.0-32.0 [facility] Mean corpuscular hemoglobin concentration (MCHC) determinationOrdered By: Teri Garcia on 09-10-2024 MCHC (RBC) [Mass/Vol] 32.6 g/dL 32-36 [facility] Mean platelet volume determi nationOrdered By: Teri Garcia on 09-10-2024 Platelet mean volume (Bld) [Entitic vol] 10.4 fL 6.2-12.0 [facility] Microscopic analysis of urin e for red blood cells (RBC)Ordered By: Teri Garcia on 09-10-2024 Microscopic analysis of urine for red blood cells (RBC) 0 SEEN /hpf 0-5 [facility] Monocyte percentageOrdered B y: Teri Garcia on 09-10-2024 Monocytes/100 WBC (Bld) 9.1 % 0-10 [facility] Mucus LM Ql (Urine sed)Order ed By: Teri Garcia on 09-10-2024 Mucus Ql (Urine sed) 0 SEEN /hpf [facility] Neutrophil percentageOrdered By: Teri Garcia on 06-13-2025 Neutrophils/100 WBC (Bld) 72.3 % High 47-70 [facility] Nitrite Test strip Ql (U)Ord ered By: Teri Garcia on 09-10-2024 Nitrite Ql (U) Negative Negative [facility] Nucleated red blood cell per centageOrdered By: Teri Garcia on 09-10-2024 Nucleated RBC/100 WBC (Bld) [Ratio] 0 % 0-5 [facility] Partial Thromboplast Timeon 09-10-2024 aPTT Coag (Bld) [Time] 31.8 s Normal 24.1-36.2 [facility] Comment on above: Performed By: #### L 500.2500, L100.0100, L501.4021, L300.3900, L300.4310 ####[facility] [address] [place], [place], [id number] Platelet countOrdered By: Antonio Garcia on 09-10-2024 Platelets (Bld) [#/Vol] 269 10*3/uL 150-450 [facility] Potassium measurement (mass/ volume)Ordered By: Teri Garcia on 09-10-2024 Potassium (Unsp spec) [Mass/Vol] 4.4 mmol/L 3.3-5.1 [facility] Comment on above: Hemolysis present, R esults could be affected. Protein Test strip Ql (U)Ord ered By: Teri Garcia on 09-10-2024 Protein Ql (U) 30 mg/dl High Negative [facility] Prothrombin Time w/INRon INR Coag (PPP) [Relative time] 2.4 {INR} Normal [facility] Comment on above: Performed By: #### L 500.2500, L100.0100, L501.4021, L300.3900, L300.4310 ####[facility] [address], [address] PT Coag (PPP) [Time] 26.4 s High 11.7-14.9 [facility] Comment on above: Performed By: #### L 500.2500, L100.0100, L501.4021, L300.3900, L300.4310 ####[facility] [address] [place], [address] Prothrombin timeOrdered By: Teri Garcia on 09-10-2024 PT Coag (PPP) [Time] 26.4 s High 11.7-14.9 [facility] RBC Auto (Bld) [#/Vol]Ordere d By: Teri Garcia on 09-10-2024 RBC (Bld) [#/Vol] 4.44 10*6/uL 4.2-5.4 [facility] STROKE Brain/Head without Co nton 09-10-2024 STROKE Brain/Head without Cont [facility] Services [address] [place], [place] [address] STROKE Brain/Head without Cont MR#: [id number] Acct: [id number] Name: EZRA GONZALEZ Rep #: [id number] : 1935 F 89 From: Mio nayak MD PCP: Dr. Kvng Ochoa, DO Status: REG ER Study: STROKE Brain/Head without Cont Date of Exam: 0 09/10/24 Exam# [id number] Ordering Dr: Teri Garcia DO PROCEDURE: STROKE [...] 2:05 pm with readback verification. Reading Location: [id number] CC: Dr. Teri Garcia DO; Dr. Kvng Ochoa DO Chiropractor Sole Practitioner: Signed Normal [facility] STROKE CTA Head AND Neck W/C onon 09-10-2024 STROKE CTA Head AND Neck W/Con [facility] Imaging Services [address], [place] [address] STROKE CTA Head AND Neck W/Con MR#: [id number] Acct: [id number] Name: EZRA GONZALEZ Rep #: [id number] : 1935 F 89 From: Mio nayak MD PCP: Dr. Kvng Ochoa DO Status: REG ER Study: STROKE CTA Head AND Neck W/Con Date of Exam: 0 09/10/24 Exam# [id number] Ordering Dr: Teri Garcia DO PROCEDURE: STROKE [...] RIGHT Vertebral: Unremarkable. LEFT Vertebral: Unremarkable. Anatomy: [place] of [place] anatomy is normal. Aneurysm or [...] 3:01 pm with readback verification. Reading Location: [id number] CC: Dr. Teri Garcia DO; Dr. Kvng Ochoa DO Chiropractor Sole Practitioner: Signed Normal [facility] Serum creatinine measurement (mass/volume)Ordered By: Teri Garcia on 09-10-2024 Creatinine [Mass/Vol] 1.05 mg/dL 0.70-1.20 [facility] Serum glucose measurement (m ass/volume)Ordered By: Teri Garcia on 09-10-2024 Glucose [Mass/Vol] 131 mg/dL High 70-99 [facility] Serum or plasma calcium viktoria urement (mass/volume)Ordered By: Teri Garcia on 09-10-2024 Calcium [Mass/Vol] 8.7 mg/dL 7.6-11.0 [facility] Serum or plasma urea nitroge n measurement (mass/volume)Ordered By: Teri Garcia on 09-10-2024 Urea nitrogen [Mass/Vol] 37 mg/dL High 4-19 [facility] Sodium levelOrdered By: Ollie Garcia on 09-10-2024 Sodium [Moles/Vol] 137 mmol/L 133-145 [facility] Squamous epithelial cells de tection in urine sediment by light microscopyOrdered By: Teri Jose on 09-10-2024 Epithelial cells.squamous LM Ql (Urine sed) 0-5 SEEN /hpf 5-10 [facility] Troponin T.cardiac [Mass/vol ume] in Serum or Plasma by High sensitivity methodOrdered By: Teri Garcia on 09-10-2024 Troponin T.cardiac High sensitivity method [Mass/Vol] 15 ng/L High <14 [facility] Troponin T.cardiac High sensitivity method [Mass/Vol] 17 ng/L High <14 [facility] Troponin T.cardiac High sensitivity method [Mass/Vol] 18 ng/L High <14 [facility] Urinalysis, Completeon 09-10 BACTERIA RARE Normal None Seen [facility] Comment on above: Order Comment: RANDY CTOR TO SPECIFY Performed By: #### L 400.0001 ####[facility] [address] [facility] [address] EPI,SQUAMOUS 0-5 SEEN Normal 5-10 [facility] Comment on above: Order Comment: RANDY CTOR TO SPECIFY Performed By: #### L 400.0001 ####[facility] [address] [facility] [address] WBC 10-25 SEEN Normal 0-5 [facility] Comment on above: Order Comment: RANDY CTOR TO SPECIFY Performed By: #### L 400.0001 ####[facility] [address] [place], [address] Mucus Ql (Urine sed) 0 SEEN Normal [facility] Comment on above: Order Comment: RANDY CTOR TO SPECIFY Performed By: #### L 400.0001 ####[facility] [address] [place], [address] RBC 0 SEEN Normal 0-5 [facility] Comment on above: Order Comment: RANDY CTOR TO SPECIFY Performed By: #### L 400.0001 ####[facility] [address] [place], [address] Urine clarityOrdered By: Lashaun Garcia on 09-10-2024 Clarity (U) Clear Clear [facility] Urine color determinationOrd ered By: Teri Garcia on 09-10-2024 Color (U) Straw Yellow [facility] Urine cultureOrdered By: Lashaun Garcia on 09-10-2024 Bacteria identified Cx Nom (U) Klebsiella pneumoniae sp pneum Abnormal [facility] Urine glucose detectionOrder ed By: Teri Garcia on 09-10-2024 Glucose Ql (U) Normal mg/dl Normal [facility] Urine leukocyte esterase det ection by dipstickOrdered By: Teri Garcia on 09-10-2024 Leukocyte esterase Test strip Ql (U) 500 /ul High Negative [facility] Urine pHOrdered By: Teri romero on 09-10-2024 pH (U) 5.0 [pH] 5.0 - 8.0 [facility] Urine sediment bacteria coun t by microscopy (number/high power field)Ordered By: Teri Garcia on 09-10-2024 Bacteria LM.HPF (Urine sed) [#/Area] RARE /hpf None Seen [facility] Urine specific gravity measu rementOrdered By: Teri Garcia on 09-10-2024 Specific gravity (U) [Rel density] 1.010 1.002-1.030 [facility] Urine urobilinogen measureme ntOrdered By: Teri Garcia on 09-10-2024 Urobilinogen Ql (U) Normal mg/dl Normal [facility] White blood cell (WBC) count Ordered By: Teri Garcia on 09-10-2024 WBC (Bld) [#/Vol] 11.5 10*3/uL High 4.4-11.0 [facility] White blood cell countOrdere d By: Teri Garcia on 09-10-2024 White blood cell count 10-25 SEEN /hpf 0-5 [facility] Absolute lymphocyte countOrd ered By: Anoop Blackmon on 09-08-2024 Lymphocytes Auto (Unsp spec) [#/Vol] 2.21 10*3/uL 0.83-4.51 [facility] Absolute neutrophil countOrd ered By: Anooppierce Blackmon on 09-08-2024 Neutrophils (Bld) [#/Vol] 10.3 10*3/uL High 2.0-7.7 [facility] Anion gap in Serum or Plasma Ordered By: Anooppierce Blackmon on 09-08-2024 Anion gap [Moles/Vol] 11 mmol/L 5-15 [facility] Automated lymphocyte count a s percentage of total leukocytesOrdered By: Anoop Blackmon on 09-08-2024 Lymphocytes/100 WBC Auto (Unsp spec) 16.2 % Low 19-41 [facility] BUN/creatinine ratioOrdered By: Anooppierce Blackmon on 09-08-2024 Urea nitrogen/Creatinine [Mass ratio] 35.2 mg/mg High 10-20 [facility] Basic Metabolic Profile (BMP )on 09-08-2024 BUN/CRE 35.2 RATIO High - [facility] Comment on above: Performed By: #### L 100.0100, L500.2500, L300.3900, L3300.4400 ####[facility] [address] [place], [address] Calcium [Mass/Vol] 8.9 mg/dL Normal 7.6-11.0 [facility] Comment on above: Performed By: #### L 100.0100, L500.2500, L300.3900, L3300.4400 ####[facility] [address] [place], [address] Chloride [Moles/Vol] 105 mmol/L Normal 98-108 [facility] Comment on above: Performed By: #### L 100.0100, L500.2500, L300.3900, L3300.4400 ####[facility] [address] [place], [address] CO2 [Moles/Vol] 22.4 mmol/L Normal 21.0-32.0 [facility] Comment on above: Performed By: #### L 100.0100, L500.2500, L300.3900, L3300.4400 ####[facility] [address] [place], [address] Creatinine [Mass/Vol] 1.00 mg/dL Normal 0.70-1.20 [facility] Comment on above: Performed By: #### L 100.0100, L500.2500, L300.3900, L3300.4400 ####[facility] [address] [place], [address] ECRCL 39.57 ml/min Low 50-250 [facility] Comment on above: Performed By: #### L 100.0100, L500.2500, L300.3900, L3300.4400 ####[facility] [address] [place], [address] GAP 11 Normal 5-15 [facility] Comment on above: Performed By: #### L 100.0100, L500.2500, L300.3900, L3300.4400 ####[facility] [address] [place], [address] GFR/1.73 sq M.predicted among non-blacks MDRD (S/P/Bld) [Vol rate/Area] 54 mL/min/{1.73_m2} Low >60 [facility] Comment on above: Result Comment: mL/m in/1.73m2 CKD-EPI Creatinine Equation (2020) Performed By: #### L 100.0100, L500.2500, L300.3900, L3300.4400 ####[facility] [address] [place], [address] Glucose [Mass/Vol] 149 mg/dL High 70-99 [facility] Comment on above: Performed By: #### L 100.0100, L500.2500, L300.3900, L3300.4400 ####[facility] [address] [place], [address] Potassium [Moles/Vol] 4.7 mmol/L Normal 3.3-5.1 [facility] Comment on above: Performed By: #### L 100.0100, L500.2500, L300.3900, L3300.4400 ####[facility] [address] [place], [address] Sodium [Moles/Vol] 138 mmol/L Normal 133-145 [facility] Comment on above: Performed By: #### L 100.0100, L500.2500, L300.3900, L3300.4400 ####[facility] [address] [place], [address] Urea nitrogen [Mass/Vol] 35 mg/dL High 4-19 [facility] Comment on above: Performed By: #### L 100.0100, L500.2500, L300.3900, L3300.4400 ####[facility] [address] [place], [address] Basophil percentageOrdered B y: Anoop Blackmon on 09-08-2024 Basophils/100 WBC (Bld) 0.2 % 0-1 [facility] CBC W/Diff, Automatedon 08-29 Absolute Lymph 2.21 X10 3/uL Normal 0.83-4.51 [facility] Comment on above: Performed By: #### L 100.0100, L500.2500, L300.3900, L3300.4400 #### [facility] [address] [place], [address] Absolute Neut 10.3 X10 3/uL High 2.0-7.7 [facility] Comment on above: Performed By: #### L 100.0100, L500.2500, L300.3900, L3300.4400 #### [facility] [address] [place], [address] Basophils/100 WBC (Bld) 0.2 % Normal 0-1 [facility] Comment on above: Performed By: #### L 100.0100, L500.2500, L300.3900, L3300.4400 #### [facility] [address] [place], [address] Eosinophils/100 WBC (Bld) 0.7 % Normal 0-5 [facility] Comment on above: Performed By: #### L 100.0100, L500.2500, L300.3900, L3300.4400 #### [facility] [address] [place], [address] Erythrocyte distribution width (RBC) [Ratio] 13.2 % Normal 11.6-14.6 [facility] Comment on above: Performed By: #### L 100.0100, L500.2500, L300.3900, L3300.4400 #### [facility] [address] [place], [address] Hematocrit (Bld) [Volume fraction] 41.4 % Normal 37-47 [facility] Comment on above: Performed By: #### L 100.0100, L500.2500, L300.3900, L3300.4400 #### [facility] [address] [place], [address] Hemoglobin (Bld) [Mass/Vol] 13.8 g/dL Normal 12.0-15.0 [facility] Comment on above: Performed By: #### L 100.0100, L500.2500, L300.3900, L3300.4400 #### [facility] [address] [place], [address] IG% 0.400 Normal 0.0-0.9 [facility] Comment on above: Result Comment: IG% - Immature Granulocytes (promyelocytes, myelocytes and metamyelocytes) > 1% indicates that a LEFT SHIFT is Present. Performed By: #### L 100.0100, L500.2500, L300.3900, L3300.4400 #### [facility] [address] [place], [address] Lymphocytes/100 WBC (Bld) 16.2 % Low 19-41 [facility] Comment on above: Performed By: #### L 100.0100, L500.2500, L300.3900, L3300.4400 #### [facility] [address] [place], [address] MCH (RBC) [Entitic mass] 31.4 pg Normal 27.0-32.0 [facility] Comment on above: Performed By: #### L 100.0100, L500.2500, L300.3900, L3300.4400 #### [facility] [address] [place], [address] MCHC (RBC) [Mass/Vol] 33.3 g/dL Normal 32-36 [facility] Comment on above: Performed By: #### L 100.0100, L500.2500, L300.3900, L3300.4400 #### [facility] [address] [place], [address] MCV (RBC) [Entitic vol] 94.1 fL Normal 81-99 [facility] Comment on above: Performed By: #### L 100.0100, L500.2500, L300.3900, L3300.4400 #### [facility] [address] [place], [address] Monocytes/100 WBC (Bld) 6.6 % Normal 0-10 [facility] Comment on above: Performed By: #### L 100.0100, L500.2500, L300.3900, L3300.4400 #### [facility] [address] [place], [address] Neutrophils/100 WBC (Bld) 75.9 % High 47-70 [facility] Comment on above: Performed By: #### L 100.0100, L500.2500, L300.3900, L3300.4400 #### [facility] [address] [place], [address] Nucleated RBC (Bld) [#/Vol] 0 10*3/uL Normal 0-5 [facility] Comment on above: Performed By: #### L 100.0100, L500.2500, L300.3900, L3300.4400 #### [facility] [address] [place], [address] Platelet mean volume (Bld) [Entitic vol] 10.8 fL Normal 6.2-12.0 [facility] Comment on above: Performed By: #### L 100.0100, L500.2500, L300.3900, L3300.4400 #### [facility] [address] [place], [address] Platelets (Bld) [#/Vol] 326 10*3/uL Normal 150-450 [facility] Comment on above: Performed By: #### L 100.0100, L500.2500, L300.3900, L3300.4400 #### [facility] [address] [place], [address] RBC (Bld) [#/Vol] 4.40 10*6/uL Normal 4.2-5.4 [facility] Comment on above: Performed By: #### L 100.0100, L500.2500, L300.3900, L3300.4400 #### [facility] [address] [place], [address] RDW SD 45.2 fl High 35.1-43.9 [facility] Comment on above: Performed By: #### L 100.0100, L500.2500, L300.3900, L3300.4400 #### [facility] [address] [place], [address] WBC (Bld) [#/Vol] 13.6 10*3/uL High 4.4-11.0 [facility] Comment on above: Performed By: #### L 100.0100, L500.2500, L300.3900, L3300.4400 #### [facility] [address] [place], [address] Carbon dioxide, total [Moles /volume] in Central venous bloodOrdered By: Anoop Blackmon on 09-08-2024 CO2 [Moles/Vol] 22.4 mmol/L 21.0-32.0 [facility] Chloride assayOrdered By: Monserrat Blackmon on 09-08-2024 Chloride [Moles/Vol] 105 mmol/L 98-108 [facility] Emergency Department Summary on 09-08-2024 Emergency Department Summary [facility] Medical Records Department [address] [place] [address] Emergency Department Summary 09/08/24 MR#: [id number] Acct: [id number] Name: EZRA GONZALEZ Rep #: [id number] : 1935 89 From: Anoop Blackmon MD [...] Spinal stenosis Osteoarthritis 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 Normal [facility] Eosinophil percentageOrdered By: Anoop Blackmon on 09-08-2024 Eosinophils/100 WBC (Bld) 0.7 % 0-5 [facility] Erythrocyte distribution wid th ratioOrdered By: Anoop Blackmon on 09-08-2024 Erythrocyte distribution width (RBC) [Ratio] 13.2 % 11.6-14.6 [facility] Erythrocyte distribution wid th standard deviationOrdered By: Anoop Blackmon on 09-08-2024 Erythrocyte distribution width (RBC) [Ratio] 45.2 fl High 35.1-43.9 [facility] Glomerular filtration rate ( GFR) estimation/1.73 sq m using serum, plasma, or whole bOrdered By: Anoop Blackmon on 09-08-2024 GFR/1.73 sq M.predicted among non-blacks MDRD (S/P/Bld) [Vol rate/Area] 54 mL/min/{1.73_m2} Low >60 [facility] Comment on above: mL/min/1.73m2 CKD-EP I Creatinine Equation (2020) Hematocrit Auto (Bld) [Volum e fraction]Ordered By: Anooppierce Blackmon on 09-08-2024 Hematocrit (Bld) [Volume fraction] 41.4 % 37-47 [facility] Hemoglobin measurementOrdere d By: Anooppierce Blackmon on 09-08-2024 Hemoglobin (Bld) [Mass/Vol] 13.8 g/dL 12.0-15.0 [facility] Immature granulocytes/100 WB C Auto (Bld)Ordered By: Anooppierce Blackmon on 09-08-2024 Immature granulocytes/100 WBC (Bld) 0.400 % 0.0-0.9 [facility] Comment on above: IG% - Immature Granu locytes (promyelocytes, myelocytes and metamyelocytes) > 1% indicates that a LEFT SHIFT is Present. International normalized rat io (INR) calculationOrdered By: Anoop Blackmon on 09-08-2024 INR Coag (Bld) [Relative time] 2.9 {INR} [facility] MCV (mean corpuscular volume ) determinationOrdered By: Anoop Blackmon on 09-08-2024 MCV (RBC) [Entitic vol] 94.1 fL 81-99 [facility] Mean corpuscular hemoglobin (MCH) determinationOrdered By: Anooppierce Blackmon on 09-08-2024 MCH (RBC) [Entitic mass] 31.4 pg 27.0-32.0 [facility] Mean corpuscular hemoglobin concentration (MCHC) determinationOrdered By: Anooppierce Blackmon on 09-08-2024 MCHC (RBC) [Mass/Vol] 33.3 g/dL 32-36 [facility] Mean platelet volume determi nationOrdered By: Anoop Blackmon on 09-08-2024 Platelet mean volume (Bld) [Entitic vol] 10.8 fL 6.2-12.0 [facility] Monocyte percentageOrdered B y: Anoop Blackmon on 09-08-2024 Monocytes/100 WBC (Bld) 6.6 % 0-10 [facility] Neutrophil percentageOrdered By: Anooppierce Blackmon on 09-08-2024 Neutrophils/100 WBC (Bld) 75.9 % High 47-70 [facility] Nucleated red blood cell per centageOrdered By: Anooppierce Blackmon on 09-08-2024 Nucleated RBC/100 WBC (Bld) [Ratio] 0 % 0-5 [facility] Platelet countOrdered By: Monserrat Blackmon on 09-08-2024 Platelets (Bld) [#/Vol] 326 10*3/uL 150-450 [facility] Potassium measurement (mass/ volume)Ordered By: Anoop Blackmon on 09-08-2024 Potassium (Unsp spec) [Mass/Vol] 4.7 mmol/L 3.3-5.1 [facility] Prothrombin Time w/INRon INR Coag (PPP) [Relative time] 2.9 {INR} Normal [facility] Comment on above: Performed By: #### L 100.0100, L500.2500, L300.3900, L3300.4400 ####[facility] [address] [place], [place], [phone] PT Coag (PPP) [Time] 30.7 s High 11.7-14.9 [facility] Comment on above: Performed By: #### L 100.0100, L500.2500, L300.3900, L3300.4400 ####[facility] [address] [place], [address] Prothrombin timeOrdered By: Anoop Blackmon on 09-08-2024 PT Coag (PPP) [Time] 30.7 s High 11.7-14.9 [facility] RBC Auto (Bld) [#/Vol]Ordere d By: Anoop Blackmon on 09-08-2024 RBC (Bld) [#/Vol] 4.40 10*6/uL 4.2-5.4 [facility] Serum creatinine measurement (mass/volume)Ordered By: Anoop Blackmon on 09-08-2024 Creatinine [Mass/Vol] 1.00 mg/dL 0.70-1.20 [facility] Serum glucose measurement (m ass/volume)Ordered By: Anoop Blackmon on 09-08-2024 Glucose [Mass/Vol] 149 mg/dL High 70-99 [facility] Serum or plasma calcium viktoria urement (mass/volume)Ordered By: Anoop Blackmon on 09-08-2024 Calcium [Mass/Vol] 8.9 mg/dL 7.6-11.0 [facility] Serum or plasma lamotrigine measurement (mass/volume)Ordered By: Anoop Blackmon on 09-08-2024 lamoTRIgine [Mass/Vol] 1.2 ug/mL Low 2.0-20.0 [facility] Comment on above: Detection Limit = 1. 0Performed at: [facility] [id number] Director: Brandon Wells MD, Phone: [phone] Serum or plasma urea nitroge n measurement (mass/volume)Ordered By: Anoop Blackmon on 09-08-2024 Urea nitrogen [Mass/Vol] 35 mg/dL High 4-19 [facility] Sodium levelOrdered By: Anooppierce Blackmon on 09-08-2024 Sodium [Moles/Vol] 138 mmol/L 133-145 [facility] White blood cell (WBC) count Ordered By: Anoop Blackmon on 09-08-2024 WBC (Bld) [#/Vol] 13.6 10*3/uL High 4.4-11.0 [facility] International normalized rat io (INR) calculationOrdered By: Cesar Cole on 08-18-2024 INR Coag (Bld) [Relative time] 2.6 {INR} [facility] Prothrombin timeOrdered By: Cesar Cole on 08-18-2024 PT Coag (PPP) [Time] 28.1 s High 11.7-14.9 [facility] International normalized rat io (INR) calculationOrdered By: Cesar Cole on 07-19-2024 INR Coag (Bld) [Relative time] 2.2 {INR} [facility] Prothrombin timeOrdered By: Cesar Cole on 07-19-2024 PT Coag (PPP) [Time] 25.3 s High 11.7-14.9 [facility] Cardiology Visit Reporton Cardiology Visit Report [facility] [address] [place] [address] OFFICE VISIT Date of Service: 07/01/24 MR#: [id number] Acct: [id number] Name: EZRA GONZALEZ Rep #: [id number] : 1935 Provider: Dr. Cesar Cole MD [...] atrial fibrillation. She is a reside at [facility]. 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 Normal [facility] International normalized rat io (INR) calculationOrdered By: Kvng Ochoa on 06-16-2024 INR Coag (Bld) [Relative time] 2.4 {INR} [facility] Prothrombin timeOrdered By: Kvng Ochoa on 06-16-2024 PT Coag (PPP) [Time] 26.6 s High 11.7-14.9 [facility] Absolute lymphocyte countOrd ered By: Kvng Ochoa on 06-09-2024 Lymphocytes Auto (Unsp spec) [#/Vol] 2.06 10*3/uL 0.83-4.51 [facility] Absolute neutrophil countOrd ered By: Kvng Ochoa on 06-09-2024 Neutrophils (Bld) [#/Vol] 5.6 10*3/uL 2.0-7.7 [facility] Anion gap in Serum or Plasma Ordered By: Kvng Ochoa on 06-09-2024 Anion gap [Moles/Vol] 13 mmol/L 5-15 [facility] Automated lymphocyte count a s percentage of total leukocytesOrdered By: Kvng Ochoa on 06-09-2024 Lymphocytes/100 WBC Auto (Unsp spec) 23.0 % 19-41 [facility] BUN/creatinine ratioOrdered By: Kvng Ochoa on 06-09-2024 Urea nitrogen/Creatinine [Mass ratio] 21.5 mg/mg High 10-20 [facility] Basophil percentageOrdered B y: Kvng Ochoa on 06-09-2024 Basophils/100 WBC (Bld) 0.6 % 0-1 [facility] Carbon dioxide, total [Moles /volume] in Central venous bloodOrdered By: Kvng Ochoa on 06-09-2024 CO2 [Moles/Vol] 22.4 mmol/L 21.0-32.0 [facility] Chloride assayOrdered By: Costa Ochoa on 06-09-2024 Chloride [Moles/Vol] 108 mmol/L 98-108 [facility] Eosinophil percentageOrdered By: Kvng Ochoa on 06-09-2024 Eosinophils/100 WBC (Bld) 4.8 % 0-5 [facility] Erythrocyte distribution wid th ratioOrdered By: Kvng Ochoa on 06-09-2024 Erythrocyte distribution width (RBC) [Ratio] 14.6 % 11.6-14.6 [facility] Erythrocyte distribution wid th standard deviationOrdered By: Kvng Ochoa on 06-09-2024 Erythrocyte distribution width (RBC) [Entitic vol] 49.2 fL High 35.1-43.9 [facility] Erythrocyte distribution width (RBC) [Ratio] 49.2 fl High 35.1-43.9 [facility] GFR/1.73 sq M.predicted sonia g non-blacks MDRD (S/P/Bld) [Vol rate/Area]Ordered By: Kvng Ochoa on 06-09-2024 Estimated GFR (MDRD) Non-Af Amer 59 Low >60 [facility] Comment on above: mL/min/1.73m2 CKD-EP I Creatinine Equation (2020) Glomerular filtration rate ( GFR) estimation/1.73 sq m using serum, plasma, or whole bOrdered By: Kvng Ochoa on 06-09-2024 GFR/1.73 sq M.predicted among non-blacks MDRD (S/P/Bld) [Vol rate/Area] 59 mL/min/{1.73_m2} Low >60 [facility] Comment on above: mL/min/1.73m2 CKD-EP I Creatinine Equation (2020) Hematocrit Auto (Bld) [Volum e fraction]Ordered By: Kvng Ochoa on 06-09-2024 Hematocrit (Bld) [Volume fraction] 38.3 % 37-47 [facility] Hemoglobin A1c percentageOrd ered By: Kvng Ochoa on 06-09-2024 HbA1c (Bld) [Mass fraction] 6.5 % >5.7 [facility] Hemoglobin measurementOrdere d By: Kvng Ochoa on 06-09-2024 Hemoglobin (Bld) [Mass/Vol] 12.4 g/dL 12.0-15.0 [facility] Immature granulocytes/100 WB C Auto (Bld)Ordered By: Kvng Ochoa on 06-09-2024 Immature granulocytes/100 WBC (Bld) 0.200 % 0.0-0.9 [facility] Comment on above: IG% - Immature Granu locytes (promyelocytes, myelocytes and metamyelocytes) > 1% indicates that a LEFT SHIFT is Present. Lymphocytes Auto (Unsp spec) [#/Vol]Ordered By: Kvng Ochoa on 06-09-2024 Lymphocytes (Bld) [#/Vol] 2.06 10*3/uL 0.83-4.5 1 [facility] Lymphocytes/100 WBC Auto (Un sp spec)Ordered By: Kvng Ochoa on 06-09-2024 Lymphocytes/100 WBC (Bld) 23.0 % 19-41 [facility] MCV (mean corpuscular volume ) determinationOrdered By: Kvng Ochoa on 06-09-2024 MCV (RBC) [Entitic vol] 91.8 fL 81-99 [facility] Mean corpuscular hemoglobin (MCH) determinationOrdered By: Kvng Ochoa on 06-09-2024 MCH (RBC) [Entitic mass] 29.7 pg 27.0-32.0 [facility] Mean corpuscular hemoglobin concentration (MCHC) determinationOrdered By: Kvng Ochoa on 06-09-2024 MCHC (RBC) [Mass/Vol] 32.4 g/dL 32-36 [facility] Mean platelet volume determi nationOrdered By: Kvng Ochoa on 06-09-2024 Platelet mean volume (Bld) [Entitic vol] 10.2 fL 6.2-12.0 [facility] Monocyte percentageOrdered B y: Kvng Ochoa on 06-09-2024 Monocytes/100 WBC (Bld) 8.6 % 0-10 [facility] Neutrophil percentageOrdered By: Kvng Ochoa on 06-09-2024 Neutrophils/100 WBC (Bld) 62.8 % 47-70 [facility] Nucleated red blood cell per centageOrdered By: Kvng Ochoa on 06-09-2024 Nucleated RBC/100 WBC (Bld) [Ratio] 0 % 0-5 [facility] Platelet countOrdered By: Costa Ochoa on 06-09-2024 Platelets (Bld) [#/Vol] 323 10*3/uL 150-450 [facility] Potassium (Unsp spec) [Mass/ Vol]Ordered By: Kvng Ochoa on 06-09-2024 Potassium [Moles/Vol] 4.7 mmol/L 3.3-5.1 [facility] Potassium measurement (mass/ volume)Ordered By: Kvng Ochoa on 06-09-2024 Potassium (Unsp spec) [Mass/Vol] 4.7 mmol/L 3.3-5.1 [facility] RBC Auto (Bld) [#/Vol]Ordere d By: Kvng Ochoa on 06-09-2024 RBC (Bld) [#/Vol] 4.17 10*6/uL Low 4.2-5.4 [facility] Serum creatinine measurement (mass/volume)Ordered By: Kvng Ochoa on 06-09-2024 Creatinine [Mass/Vol] 0.94 mg/dL 0.70-1.20 [facility] Serum glucose measurement (m ass/volume)Ordered By: Kvng Ochoa on 06-09-2024 Glucose [Mass/Vol] 137 mg/dL High 70-99 [facility] Serum or plasma calcium viktoria urement (mass/volume)Ordered By: Kvng Ochoa on 06-09-2024 Calcium [Mass/Vol] 8.9 mg/dL 7.6-11.0 [facility] Serum or plasma urea nitroge n measurement (mass/volume)Ordered By: Kvng Ochoa on 06-09-2024 Urea nitrogen [Mass/Vol] 20 mg/dL High 4-19 [facility] Sodium levelOrdered By: Dru Ochoa on 06-09-2024 Sodium [Moles/Vol] 143 mmol/L 133-145 [facility] White blood cell (WBC) count Ordered By: Kvng Ohcoa on 06-09-2024 WBC (Bld) [#/Vol] 9.0 10*3/uL 4.4-11.0 [facility] INR Coag (BldC) [Relative ti me]Ordered By: Cesar Cole on 05-19-2024 INR Coag (Bld) [Relative time] 2.9 {INR} [facility] Comment on above: Critical Value > 4.0 International normalized rat io (INR) measurement by fingerstickOrdered By: Cesar Cole on 05-19-2024 INR Coag (BldC) [Relative time] 2.9 [facility] Comment on above: Critical Value > 4.0 PT Coag (Bld) [Time]Ordered By: Cesar Cole on 05-19-2024 Bedside Prothrombin Time 30.4 SEC High 11.7-14.9 [facility] Whole blood prothrombin time Ordered By: Cesar Cole on 05-19-2024 PT Coag (Bld) [Time] 30.4 s High 11.7-14.9 [facility] Serum or plasma lamotrigine measurement (mass/volume)Ordered By: Anant Juarez on 05-12-2024 lamoTRIgine [Mass/Vol] 1.8 ug/mL Low 2.0-20.0 [facility] Comment on above: Detection Limit = 1. 0Performed at: [id number] [id number] Director: Brandon Wells MD, Phone: [phone] Venous blood ammonia measure mentOrdered By: Anant Juarez on 05-12-2024 Ammonia (P) [Moles/Vol] 17.0 umol/L 11-32 [facility] lamoTRIgine [Mass/Vol]Ordere d By: Anant Juarez on 05-12-2024 Lamotrigine (Lamictal) Level 1.8 ug/mL Low 2.0-20.0 [facility] Comment on above: Detection Limit = 1. 0Performed at: [facility] [id number] [place], [place] [id number] Director: Brandon Wells MD, Phone: [phone] Neurology Visit Reporton Neurology Visit Report [facility] [address], [address] [place] [id number] OFFICE VISIT Date of Service: 05/10/24 MR#: [id number] Acct: [id number] Name: EZRA GONZALEZ Rep #: [id number] : 1935 Provider: Dr. 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 She has become lost while driving [...] nature. Th (more content not included)... Normal [facility] INR Coag (BldC) [Relative ti me]Ordered By: Cesar Cole on 05-05-2024 INR Coag (Bld) [Relative time] 2.5 {INR} [facility] Comment on above: Critical Value > 4.0 PT Coag (Bld) [Time]Ordered By: Cesar Cole on 05-05-2024 Bedside Prothrombin Time 26.9 SEC High 11.7-14.9 [facility] International normalized rat io (INR) calculationOrdered By: Kvng Ochoa on 04-28-2024 INR Coag (Bld) [Relative time] 3.4 {INR} [facility] Prothrombin timeOrdered By: Kvng Ochoa on 04-28-2024 PT Coag (PPP) [Time] 35.4 s High 11.7-14.9 [facility] International normalized rat io (INR) calculationOrdered By: Kvng Ochoa on 04-14-2024 INR Coag (Bld) [Relative time] 3.0 {INR} [facility] Prothrombin timeOrdered By: Kvng Ochoa on 04-14-2024 PT Coag (PPP) [Time] 31.4 s High 11.7-14.9 [facility] Blood urea nitrogen (BUN)/cr eatinine ratioOrdered By: Kvng Ochoa on 04-09-2024 Urea nitrogen/Creatinine [Mass ratio] 13.5 mg/mg 10- [facility] Carbon dioxide measurementOr dered By: Kvng Ochoa on 04-09-2024 CO2 [Moles/Vol] 28.0 mmol/L 21.0-32.0 [facility] Chloride measurementOrdered By: Kvng Ochoa on 04-09-2024 Chloride [Moles/Vol] 106 mmol/L 98-107 [facility] Estimated glomerular filtrat ion rate (GFR) AmericanOrdered By: Kvng Ochoa on 04-09-2024 Estimated GFR (MDRD) Amer 70 mL/min >60 [facility] Comment on above: GFR Calc Glomerular filtration rate ( GFR) estimationOrdered By: Kvng Ochoa on 04-09-2024 Estimated GFR (MDRD) Non-Af Amer 58 mL/min Low >60 [facility] Comment on above: Non- GFR Calc Glucose measurementOrdered B y: Kvng Ochoa on 04-09-2024 Glucose [Mass/Vol] 116 mg/dL High 74-106 [facility] Comment on above: Fasting Glucose resu lt from 100 to 125 mg/dL suggests IMPAIRED HOMEOSTASIS per A.D.A. criteria. Potassium measurementOrdered By: Kvng Ochoa on 04-09-2024 Potassium [Moles/Vol] 4.3 mmol/L 3.5-5.1 [facility] Serum anion gap measurementO rdered By: Kvng Ochoa on 04-09-2024 Anion gap [Moles/Vol] 3 mmol/L Low 5-15 [facility] Serum or plasma calcium viktoria urement (mass/volume)Ordered By: Kvng Ochoa on 04-09-2024 Calcium [Mass/Vol] 8.8 mg/dL 8.5-10.1 [facility] Serum or plasma creatinine m easurement (mass/volume)Ordered By: Kvng Ochoa on 04-09-2024 Creatinine [Mass/Vol] 0.96 mg/dL 0.55-1.02 [facility] Comment on above: The validity of the calculated GFR & GFRAA in patients over 70 years has not been determined. Clinical correlation is essential. Serum or plasma urea nitroge n measurement (mass/volume)Ordered By: Kvng Ochoa on 04-09-2024 Urea nitrogen [Mass/Vol] 13 mg/dL 7-18 [facility] Sodium levelOrdered By: Dru Ochoa on 04-09-2024 Sodium [Moles/Vol] 137 mmol/L 136-145 [facility] International normalized rat io (INR) calculationOrdered By: Kvng Ochoa on 04-06-2024 INR Coag (Bld) [Relative time] 2.6 {INR} [facility] Prothrombin timeOrdered By: Kvng Ochoa on 04-06-2024 PT Coag (PPP) [Time] 28.8 s High 11.7-14.9 [facility] INR Coag (BldC) [Relative ti me]Ordered By: Kvng Ochoa on 04-05-2024 INR Coag (Bld) [Relative time] 3.5 {INR} [facility] Comment on above: Critical Value > 4.0 PT Coag (Bld) [Time]Ordered By: Kvng Ochoa on 04-05-2024 Bedside Prothrombin Time 35.4 SEC High 11.7-14.9 [facility] International normalized rat io (INR) calculationOrdered By: Kvng Ochoa on 03-29-2024 INR Coag (Bld) [Relative time] 1.5 {INR} [facility] Prothrombin timeOrdered By: Kvng Ochoa on 03-29-2024 PT Coag (PPP) [Time] 17.9 s High 11.7-14.9 [facility] INR Coag (BldC) [Relative ti me]Ordered By: Kvng Ochoa on 03-26-2024 INR Coag (Bld) [Relative time] 3.4 {INR} [facility] Comment on above: Critical Value > 4.0 PT Coag (Bld) [Time]Ordered By: Kvng Ochoa on 03-26-2024 Bedside Prothrombin Time 34.4 SEC High 11.7-14.9 [facility] INR Coag (BldC) [Relative ti me]Ordered By: Kvng Ochoa on 03-25-2024 INR Coag (Bld) [Relative time] 3.8 {INR} [facility] Comment on above: Critical Value > 4.0 PT Coag (Bld) [Time]Ordered By: Kvng Ochoa on 03-25-2024 Bedside Prothrombin Time 37.8 SEC High 11.7-14.9 [facility] International normalized rat io (INR) calculationOrdered By: Kvng Ochoa on 03-19-2024 INR Coag (Bld) [Relative time] 3.0 {INR} [facility] Prothrombin timeOrdered By: Kvng Ochoa on 03-19-2024 PT Coag (PPP) [Time] 30.7 s High 11.7-14.9 [facility] INR Coag (BldC) [Relative ti me]Ordered By: Kvng Ochoa on 03-17-2024 INR Coag (Bld) [Relative time] 3.3 {INR} [facility] Comment on above: Critical Value > 4.0 PT Coag (Bld) [Time]Ordered By: Kvng Ochoa on 03-17-2024 Bedside Prothrombin Time 34.2 SEC High 11.7-14.9 [facility] INR Coag (BldC) [Relative ti me]Ordered By: Kvng Ochoa on 03-10-2024 INR Coag (Bld) [Relative time] 2.4 {INR} [facility] Comment on above: Critical Value > 4.0 PT Coag (Bld) [Time]Ordered By: Kvng Ochoa on 03-10-2024 Bedside Prothrombin Time 25.4 SEC High 11.7-14.9 [facility] International normalized rat io (INR) calculationOrdered By: Kvng Ochoa on 03-08-2024 INR Coag (Bld) [Relative time] 1.8 {INR} [facility] Prothrombin timeOrdered By: Kvng Ochoa on 03-08-2024 PT Coag (PPP) [Time] 21.1 s High 11.7-14.9 [facility] INR Coag (BldC) [Relative ti me]Ordered By: Kvng Ochoa on 03-04-2024 INR Coag (Bld) [Relative time] 1.8 {INR} [facility] Comment on above: Critical Value > 4.0 PT Coag (Bld) [Time]Ordered By: Kvng Ochoa on 03-04-2024 Bedside Prothrombin Time 20.2 SEC High 11.7-14.9 [facility] INR Coag (BldC) [Relative ti me]Ordered By: Kvng Ochoa on 02-05-2024 INR Coag (Bld) [Relative time] 2.2 {INR} [facility] Comment on above: Critical Value > 4.0 PT Coag (Bld) [Time]Ordered By: Kvng Ochoa on 02-05-2024 Bedside Prothrombin Time 22.8 SEC High 11.7-14.9 [facility] Capillary blood internationa l normalized ratio (INR)Ordered By: Alexandra Hagen on 06-30-2023 INR Coag (BldC) [Relative time] 2.4 [facility] Comment on above: Critical Value > 4.0 Whole blood prothrombin time Ordered By: Alexandra Hagen on 06-30-2023 PT Coag (Bld) [Time] 24.6 s 11.7-14.9 [facility] CARECOORDon 2023 CARECOORD Patient Choice Patient Name: EZRA GONZALEZ Date of : 1935 [facility] CARECOORDon 06-20-2023 CARECOORD Next Site of Care Admission Date: 06/16/2023 01:38 PM Patient Name: EZRA GONZALEZ Location: [address] [id number] Date of : 1935 ------- Placement Information ------- Referral Type:Home Health Care Services - New Referral ID:[facility]-[id number] Provider Name:[facility] At Home Address 1:Felipe [address] Address 2: City:[place] Selection Factors:Patient/Famil y Choice State:[place] Normal [facility] SW, pt i s requesting COT [...] pt order lunch. Notified TONIO, RN and critical care unit manager. . [facility] I SPOKE WITH DONOVAN, TRANSPLANT WORKER AT [facility]. THEY CAN TAKE PT BACK TODAY. THEY CAN PROVIDE TRANSPORTATION BACK TO FACILITY AROUND 3 PM. AWARE PT WILL NEED PT AT FACILITY, THEY USE [facility]ber, DID LET HC LIAISON NOW. WENT TO [...] SECURE CHAT WITH CONNIE PEREZ REGARDING THIS. [facility] Laboratory - Chemistry and C hemistry - challengeon 06-20-2023 Glucose [Mass/Vol] 125 mg/dL High 70 - 100 mg/dL [facility] Laboratory - Coagulationon 0 3-22-2024 PT Coag (Bld) [Time] 11.3 s 9.0 - 12.0 s [facility] No Panel Informationon 06-19 Interpretation and review of laboratory results Abnormal Trina Alcazar th Performed by: [facility], [address] [place] [address] CLIA ID: [id number] [facility] Radiology Study observation (narrative) Trina isabel PROTHROMBIN TIMEon INR Coag (PPP) [Relative time] 1.1 {INR} Normal 0.9-1.1 [facility] Comment on above: Result Comment: Reji [...] Myocardial Infarction Performed By: #### Akanksha [id number] ####Safety Net Maker: ALEXANDRA BUSTAMANTE ([phone])[facility] ([facility])[address] [place] [address] PT Coag (PPP) [Time] 11.3 s Normal 9.0-12.0 [facility] Comment on above: Performed By: #### Akanksha [id number] ####Safety Net Maker: ALEXANDRA BUSTAMANTE ([phone])[facility] ([facility])[address] [place] [address] [place] PT Coag (Bld) [Time]on 06-19 INR Coag (PPP) [Relative time] 1.1 {INR} 0.9 - 1.1 [facility] Comment on above: Recommended Anticoag [...] Interpretation and review of laboratory results Normal [facility] Progress Noteon 06-20-2023 Progress Note Dc via DM cot to Josep MCARTHUR with all belongings [facility] Progress Note Called report to Maryanne at [facility] Progress Note [facility] Anticoagulatio n Management Service (RIA) Inpatient Warfarin Consult HPI: Ezra Gonzalez is a 87 y.o. female admitted on 06/16/2023 for Closed displaced fracture of medial condyle of right humerus, initial encounter [S42.978R] History reviewed. No pertinent past medical history. [...] patient can be classified as high risk ([id number] = 8). 2. Monitor for s/s of bleeding and drug interactions. Will adjust dose accordingly 3. RIA will manage while inpatient Dc Lombardi, JpD Candidate Toshia Sanches, JpD, BCPS RIA is available daily [phone] via [employer]. If no response on [employer] then please page [phone]. Normal [facility] BASIC METABOLIC PANELon 05-30 Anion gap [Moles/Vol] 11 mmol/L Normal 3-13 [facility] Comment on above: Performed By: #### L [id number] ####Safety Net Maker: ALEXANDRA BUSTAMANTE ([phone])[facility] ([facility] Calcium [Mass/Vol] 8.3 mg/dL Low 8.4-10.4 [facility] Comment on above: Performed By: #### L [id number] ####Safety Net Maker: ALEXANDRA BUSTAMANTE ([phone])[facility] ([facility])[address] [place] [address] Chloride [Moles/Vol] 102 mmol/L Normal 98-107 [facility] Comment on above: Performed By: #### L [id number] ####Safety Net Maker: ALEXANDRA BUSTAMANTE ([phone])[facility] ([facility])[address] [place] [address] CO2 [Moles/Vol] 21 mmol/L Low 22-30 [facility] Comment on above: Performed By: #### L [id number] ####Safety Net Maker: ALEXANDRA BUSTAMANTE ([phone])[facility] ([facility])[address] [place] [address] Creatinine [Mass/Vol] 0.84 mg/dL Normal 0.52-1.04 [facility] Comment on above: Performed By: #### L [id number] ####Safety Net Maker: ALEXANDRA BUSTAMANTE ([phone])[facility] ([facility])[address] [place] [address] [place] GLOMERULAR FILTRATION RATE ML/MIN/1.73 SQ M.PREDICTED 67.4 mL/min/1.73m*2 Normal >60.0 [facility] Comment on above: Result Comment: Calc ulation based on the Chronic Kidney Disease Epidemiology Collaboration (CKD-EPI) equation refit without adjustment for race Performed By: #### L [id number] ####Safety Net Maker: ALEXANDRA BUSTAMANTE ([phone])[facility] ([facility])[address] [place] [address] [place] Glucose [Mass/Vol] 263 mg/dL High 70-100 [facility] Comment on above: Performed By: #### L [id number] ####Safety Net Maker: ALEXANDRA BUSTAMANTE ([phone])[facility] ([facility])[address] [place] [address] [place] Potassium [Moles/Vol] 4.7 mmol/L Normal 3.5-5.1 [facility] Comment on above: Performed By: #### L [id number] ####Safety Net Maker: ALEXANDRA BUSTAMANTE ([phone])[facility])[address] [place] [address] Sodium [Moles/Vol] 133 mmol/L Low 135-145 [facility] Comment on above: Performed By: #### L [id number] ####Safety Net Maker: ALEXANDRA BUSTAMANTE ([phone])[facility] ([facility])[address] [place] [address] Urea nitrogen [Mass/Vol] 27 mg/dL High 7-17 [facility] Comment on above: Performed By: #### L [id number] ####Safety Net Maker: ALEXANDRA BUSTAMANTE ([phone])[facility])[address] [place] [address] Basic metabolic 1998 panelon 06-19-2023 Anion gap [Moles/Vol] 11 mmol/L 3 - 13 mmol/L [facility] Calcium [Mass/Vol] 8.3 mg/dL Low 8.4 - 10. 4 mg/dL [facility] Chloride [Moles/Vol] 102 mmol/L 98 - 10 7 mmol/L [facility] CO2 [Moles/Vol] 21 mmol/L Low 22 - 30 mmol/L [facility] Creatinine [Mass/Vol] 0.84 mg/dL 0.52 - 1.04 mg/dL [facility] GFR/1.73 sq M.predicted MDRD (S/P/Bld) [Vol rate/Area] 67.4 mL/min/{1.73_m2} - PINF [facility] Comment on above: Calculation based on the Chronic Kidney Disease Epidemiology Collaboration (CKD-EPI) equation refit without adjustment for race Glucose [Mass/Vol] 263 mg/dL High 70 - 100 mg/dL [facility] Interpretation and review of laboratory results Abnormal [facility] Potassium [Moles/Vol] 4.7 mmol/L 3.5 - 5.1 mmol/L [facility] Sodium [Moles/Vol] 133 mmol/L Low 135 - 145 mmol/L [facility] Urea nitrogen [Mass/Vol] 27 mg/dL High 7 - 17 mg/d L [facility] CARECOORDon 06-19-2023 CARECOSAN FRANCISCO DAY #1 S/P ORIF OF RIGHT ARM. WAITING FOR PT/OT EVALS FOR DC PLANNING. Normal [facility] CBC W Auto Differential pane l (Bld)Ordered By: Leona Thakur on 06-19-2023 Basophils (Bld) [#/Vol] 0.0 10*3/uL 0.0 - 0.2 10*3/uL [facility] Basophils/100 WBC (Bld) 0.2 % 0.0 - 2.0 % [facility] Eosinophils (Bld) [#/Vol] 0.0 10*3/uL 0. 0 - 0.5 10*3/uL [facility] Eosinophils/100 WBC (Bld) 0.0 % 0.0 - 6.0 % [facility] Erythrocyte distribution width (RBC) [Ratio] 13.6 % 11.5 - 15.0 % [facility] Hematocrit (Bld) [Volume fraction] 35.0 % 35.0 - 47.0 % [facility] Hemoglobin (Bld) [Mass/Vol] 11.4 g/dL Low 11.7 - 16.0 g/dL [facility] Immature granulocytes (Bld) [#/Vol] 0.1 10*3/uL High NINF - 0.1 10*3/uL [facility] Immature granulocytes/100 WBC (Bld) 0.6 % 0.0 - 2.0 % [facility] Interpretation and review of laboratory results Abnormal [facility] th Lymphocytes (Bld) [#/Vol] 0.8 10*3/uL Low 1. 0 - 4.3 10*3/uL [facility] Lymphocytes/100 WBC (Bld) 6.4 % Low 15 .0 - 45.0 % [facility] MCH (RBC) [Entitic mass] 28.6 pg 26. 0 - 34.0 pg [facility] MCHC (RBC) [Mass/Vol] 32.6 % 30.5 - 36.0 % [facility] MCV (RBC) [Entitic vol] 87.9 fL 77.0 - 99.0 fL [facility] Monocytes (Bld) [#/Vol] 0.6 10*3/uL 0.0 - 0.9 10*3/uL [facility] Monocytes/100 WBC (Bld) 4.6 % Low 5.0 - 13.0 % [facility] Neutrophils (Bld) [#/Vol] 11.2 10*3/uL High 1. 8 - 7.5 10*3/uL [facility] Neutrophils/100 WBC (Bld) 88.2 % High 38 .0 - 82.0 % [facility] Nucleated RBC/100 WBC (Bld) [Ratio] 0.0 % [facility] Platelet mean volume (Bld) [Entitic vol] 10.2 fL 9.0 - 12.7 fL [facility] Platelets (Bld) [#/Vol] 260 10*3/uL 140 - 440 10*3/uL [facility] RBC (Bld) [#/Vol] 3.98 10*6/uL 3.80 - 5.2 0 10*6/uL [facility] WBC (Bld) [#/Vol] 12.7 10*3/uL High 3.6 - 10.7 10*3/uL [facility] CBC WITH AUTO DIFFERENTIALon 06-19-2023 Basophils (Bld) [#/Vol] 0.0 10*3/uL Normal 0.0-0.2 [facility] Comment on above: Performed By: #### L [id number] ####Safety Net Maker: ALEXANDRA BUSTAMANTE ([phone])[facility])[address] [place] [address] Basophils/100 WBC (Bld) 0.2 % Normal 0.0-2.0 [facility] Comment on above: Performed By: #### L [id number] ####Safety Net Maker: ALEXANDRA [id number])[facility] ([facility])[address] [place] [address] [place] Eosinophils (Bld) [#/Vol] 0.0 10*3/uL Normal 0.0-0.5 [facility] Comment on above: Performed By: #### L [id number] ####Safety Net Maker: ALEXANDRA BUSTAMANTE ([phone])[facility] ([facility])[address] [place] [address] [place] Eosinophils/100 WBC (Bld) 0.0 % Normal 0.0-6.0 [facility] Comment on above: Performed By: #### L [id number] ####Safety Net Maker: ALEXANDRA BUSTAMANTE ([phone])[facility])[address] [place] [address] Erythrocyte distribution width (RBC) [Ratio] 13.6 % Normal 11.5-15.0 [facility] Comment on above: Performed By: #### L [id number] ####Safety Net Maker: ALEXANDRA BUSTAMANTE ([phone])[facility])[address] [place] [address] Hematocrit (Bld) [Volume fraction] 35.0 % Normal 35.0-47.0 [facility] Comment on above: Performed By: #### L [id number] ####Safety Net Maker: ALEXANDRA BUSTAMANTE ([phone])[facility])[address] [place] [address] Hemoglobin (Bld) [Mass/Vol] 11.4 g/dL Low 11.7-16.0 [facility] Comment on above: Performed By: #### L [id number] ####Safety Net Maker: ALEXANDRA BUSTAMANTE ([id number])[facility])[address] [place] [address] IMMATURE GRANS % 0.6 % Normal 0.0-2.0 [facility] Comment on above: Performed By: #### L [id number] ####Safety Net Maker: ALEXANDRA BUSTAMANTE ([phone])[facility])[address] [place] [address] IMMATURE GRANS ABSOLUTE 0.1 10*3/uL High <0.1 [facility] Comment on above: Performed By: #### L [id number] ####Safety Net Maker: ALEXANDRA BUSTAMANTE ([phone])[facility])[address] [place] [address] Lymphocytes (Bld) [#/Vol] 0.8 10*3/uL Low 1.0-4.3 [facility] Comment on above: Performed By: #### L [id number] ####Safety Net Maker: ALEXANDRA BUSTAMANTE ([phone])[facility])[address] [place] [address] Lymphocytes/100 WBC (Bld) 6.4 % Low 15.0-45.0 [facility] Comment on above: Performed By: #### L [id number] ####Safety Net Maker: ALEXANDRA BUSTAMANTE ([phone])[facility])[address] [place] [address] MCH (RBC) [Entitic mass] 28.6 pg Normal 26.0-34.0 [facility] Comment on above: Performed By: #### L [id number] ####Safety Net Maker: ALEXANDRA BUSTAMANTE ([id number])[facility])[address] [place] [address] MCHC 32.6 % Normal 30.5-36.0 [facility] Comment on above: Performed By: #### L [id number] ####Safety Net Maker: ALEXANDRA BUSTAMANTE ([id number])[facility] ([facility])[address] [place] [address] MCV (RBC) [Entitic vol] 87.9 fL Normal 77.0-99.0 [facility] Comment on above: Performed By: #### L [id number] ####Safety Net Maker: ALEXANDRA BUSTAMANTE ([phone])[facility])[address] [place] [address] Monocytes (Bld) [#/Vol] 0.6 10*3/uL Normal 0.0-0.9 [facility] Comment on above: Performed By: #### L [id number] ####Safety Net Maker: ALEXANDRA BUSTAMANTE ([id number])[facility])[address] [place] [address] Monocytes/100 WBC (Bld) 4.6 % Low 5.0-13.0 S [facility] Comment on above: Performed By: #### L [id number] ####Safety Net Maker: ALEXANDRA BUSTAMANTE ([id number])[facility] ([facility])[address] [place] [address] NEUTROPHILS ABSOLUTE 11.2 10*3/uL High 1.8-7.5 [facility] Comment on above: Performed By: #### L [id number] ####Safety Net Maker: ALEXANDRA BUSTAMANTE ([phone])[facility] ([facility])[address] [place] [address] Neutrophils/100 WBC (Bld) 88.2 % High 38.0-82.0 [facility] Comment on above: Performed By: #### L [id number] ####Safety Net Maker: ALEXANDRA BUSTAMANTE ([id number])[facility] ([facility])[address] [place] [address] NRBC 0.0 /100 WBCs Normal 0.0-2.0 [facility] Comment on above: Performed By: #### L [id number] ####Safety Net Maker: ALEXANDRA BUSTAMANTE ([id number])[facility] ([facility])[address] [place] [address] Platelet mean volume (Bld) [Entitic vol] 10.2 fL Normal 9.0-12.7 [facility] Comment on above: Performed By: #### L [id number] ####Safety Net Maker: ALEXANDRA BUSTAMANTE ([id number])[facility] ([facility])[address] [place] [address] Platelets (Bld) [#/Vol] 260 10*3/uL Normal 140-440 [facility] Comment on above: Performed By: #### L [id number] ####Safety Net Maker: ALEXANDRA BUSTAMANTE ([id number])[facility] ([facility])[address] [place] [address] RBC (Bld) [#/Vol] 3.98 10*6/uL Normal 3.80-5.20 [facility] Comment on above: Performed By: #### L [id number] ####Safety Net Maker: ALEXANDRA BUSTAMANTE ([id number])[facility] ([facility])[address] [place] [address] WBC (Bld) [#/Vol] 12.7 10*3/uL High 3.6-10.7 [facility] Comment on above: Performed By: #### L [id number] ####Safety Net Maker: ALEXANDRA BUSTAMANTE ([id number])[facility] ([facility])[address] [place] [address] Laboratory - Chemistry and C hemistry - challengeon 06-19-2023 Glucose [Mass/Vol] 220 mg/dL High 70 - 100 mg/dL [facility] Glucose [Mass/Vol] 137 mg/dL High 70 - 100 mg/dL [facility] Glucose [Mass/Vol] 141 mg/dL High 70 - 100 mg/dL [facility] Glucose [Mass/Vol] 177 mg/dL High 70 - 100 mg/dL [facility] Laboratory - Coagulationon 0 06-19-2023 PT Coag (Bld) [Time] 11.3 s 9.0 - 12.0 s [facility] No Panel Informationon 06-18 Interpretation and review of laboratory results Abnormal [facility] Performed by: [facility], [address] [place] [address] CLIA ID: [id number] [facility] Interpretation and review of laboratory results Abnormal [facility] Performed by: [facility], [address] [place] [address] CLIA ID: [id number] [facility] Interpretation and review of laboratory results Abnormal [facility] Performed by: [facility], [address] [place] [address] CLIA ID: [id number] [facility] Interpretation and review of laboratory results Abnormal [facility] th Performed by: [facility], [address] [place] [address] CLIA ID: [id number] [facility] Radiology Study observation (narrative) Trina Oconnell alth Radiology Study observation (narrative) Trina Oconnell alth Radiology Study observation (narrative) Trina Oconnell alth Radiology Study observation (narrative) Trina Oconnell alth PROTHROMBIN TIMEon INR Coag (PPP) [Relative time] 1.1 {INR} Normal 0.9-1.1 [facility] Comment on above: Result Comment: Reji [...] Myocardial Infarction Performed By: #### L [id number] ####Safety Net Maker: ALEXANDRA BUSTAMANTE ([id number])[facility] ([facility])[address] [place] [address] PT Coag (PPP) [Time] 11.3 s Normal 9.0-12.0 [facility] Comment on above: Performed By: #### L [id number] ####Safety Net Maker: ALEXANDRA BUSTAMANTE ([id number])[facility] ([facility])[address] [place] [address] PT Coag (Bld) [Time]on 06-18 INR Coag (PPP) [Relative time] 1.1 {INR} 0.9 - 1.1 [facility] Comment on above: Recommended Anticoag [...] Interpretation and review of laboratory results Normal [facility] Progress Noteon 06-19-2023 Progress Note [facility] Anticoagulatio n Management Service (RIA) Inpatient Warfarin Consult HPI: Ezra Gonzalez is a 87 y.o. female admitted on 06/16/2023 for Closed displaced fracture of medial condyle of right humerus, initial encounter [S43.242S] History reviewed. No pertinent past medical history. [...] patient can be classified as high risk ([id number] = 8). 2. Monitor for s/s of bleeding and drug interactions. Will adjust dose accordingly 3. RIA will manage while inpatient Dc Lombardi, PharmD Candidate Jp BolanosD, BCPS RIA is available daily [phone] via [employer]. If no response on [employer] Chat then please page [phone]. Normal [facility] BASIC METABOLIC PANELon 05-30 Anion gap [Moles/Vol] 10 mmol/L Normal 3-13 [facility] Comment on above: Performed By: #### L [id number] ####Safety Net Maker: ALEXANDRA BUSTAMANTE ([id number])[facility])[address] [place] [address] Calcium [Mass/Vol] 8.8 mg/dL Normal 8.4-10.4 [facility] Comment on above: Performed By: #### L [id number] ####Safety Net Maker: ALEXANDRA BUSTAMANTE ([id number])[facility] ([facility])[address] [place] [address] [place] Chloride [Moles/Vol] 98 mmol/L Normal 98-107 [facility] Comment on above: Performed By: #### L [id number] ####Safety Net Maker: ALEXANDRA BUSTAMANTE ([id number])[facility] ([facility])[address] [place] [address] [place] CO2 [Moles/Vol] 25 mmol/L Normal 22-30 [facility] Comment on above: Performed By: #### L [id number] ####Safety Net Maker: ALEXANDRA BUSTAMANTE ([id number])[address] Creatinine [Mass/Vol] 0.83 mg/dL Normal 0.52-1.04 [facility] Comment on above: Performed By: #### L AB15 ####Safety Net Maker: ALEXANDRA BUSTAMANTE ([id number])[address] GLOMERULAR FILTRATION RATE ML/MIN/1.73 SQ M.PREDICTED 68.3 mL/min/1.73m*2 Normal >60.0 [facility] Comment on above: Result Comment: Calc ulation based on the Chronic Kidney Disease Epidemiology Collaboration (CKD-EPI) equation refit without adjustment for race Performed By: #### L AB15 ####Safety Net Maker: ALEXANDRA BUSTAMANTE ([id number])[address] Glucose [Mass/Vol] 163 mg/dL Normal [facility] Comment on above: Performed By: #### L AB15 ####Safety Net Maker: ALEXANDRA [id number])[address] Order Comment: If no t done within the last 3 mos Performed By: #### L AB90 ####Safety Net Maker: ALEXANDRA [id number])[address] Potassium [Moles/Vol] 4.6 mmol/L Normal 3.5-5.1 [facility] Comment on above: Performed By: #### L AB15 ####Safety Net Maker: ALEXANDRA [id number])[address] Sodium [Moles/Vol] 133 mmol/L Low 135-145 [facility] Comment on above: Performed By: #### L AB15 ####Safety Net Maker: ALEXANDRA [id number])[facility] ([facility])[address] [place] [address] Urea nitrogen [Mass/Vol] 24 mg/dL High 7-17 [facility] Comment on above: Performed By: #### L [id number] ####Safety Net Maker: ALEXANDRA BUSTAMANTE ([id number])[facility] ([facility])[address] [place] [address] Basic metabolic 1998 panelon 06-18-2023 Anion gap [Moles/Vol] 10 mmol/L 3 - 13 mmol/L [facility] Calcium [Mass/Vol] 8.8 mg/dL 8.4 - 10. 4 mg/dL [facility] Chloride [Moles/Vol] 98 mmol/L 98 - 10 7 mmol/L [facility] CO2 [Moles/Vol] 25 mmol/L 22 - 30 mmol/L [facility] Creatinine [Mass/Vol] 0.83 mg/dL 0.52 - 1.04 mg/dL [facility] GFR/1.73 sq M.predicted MDRD (S/P/Bld) [Vol rate/Area] 68.3 mL/min/{1.73_m2} - PINF [facility] Comment on above: Calculation based on the Chronic Kidney Disease Epidemiology Collaboration (CKD-EPI) equation refit without adjustment for race Glucose [Mass/Vol] 163 mg/dL High 70 - 100 mg/dL [facility] Interpretation and review of laboratory results Abnormal [facility] Potassium [Moles/Vol] 4.6 mmol/L 3.5 - 5.1 mmol/L [facility] Sodium [Moles/Vol] 133 mmol/L Low 135 - 145 mmol/L [facility] Urea nitrogen [Mass/Vol] 24 mg/dL High 7 - 17 mg/d L [facility] CARECOORDon 06-18-2023 [facility]OORD Care Managment Initial Assessment Date: 06/18/2023 Patient Name: Ezra Gonzalez : 1935 Patient Information Source of Information: Patient Cognition/Language: WFL - Within Functional Limits Permission given to speak with patient sales representatives/caregi saira as indicated: No Confirmation of Payer with patient/family: Yes Payer Name: [facility] Benld: No Confirmation of Primary Care Physician: Confirmed [...] CONTINUE TO FOLLOW. Shikha Gray RN Normal [facility] CBC W Auto Differential pane l (Bld)Ordered By: Nir Meza on 06-18-2023 Basophils (Bld) [#/Vol] 0.1 10*3/uL 0.0 - 0.2 10*3/uL [facility] Basophils/100 WBC (Bld) 0.4 % 0.0 - 2.0 % [facility] Eosinophils (Bld) [#/Vol] 0.2 10*3/uL 0. 0 - 0.5 10*3/uL [facility] Eosinophils/100 WBC (Bld) 1.3 % 0.0 - 6.0 % [facility] Erythrocyte distribution width (RBC) [Ratio] 13.8 % 11.5 - 15.0 % [facility] Hematocrit (Bld) [Volume fraction] 44.1 % 35.0 - 47.0 % [facility] Hemoglobin (Bld) [Mass/Vol] 13.9 g/dL 11.7 - 16.0 g/dL [facility] Immature granulocytes (Bld) [#/Vol] 0.1 10*3/uL High NINF - 0.1 10*3/uL [facility] Immature granulocytes/100 WBC (Bld) 0.4 % 0.0 - 2.0 % [facility] Interpretation and review of laboratory results Abnormal [facility] th Lymphocytes (Bld) [#/Vol] 2.0 10*3/uL 1. 0 - 4.3 10*3/uL [facility] Lymphocytes/100 WBC (Bld) 13.1 % Low 15 .0 - 45.0 % [facility] MCH (RBC) [Entitic mass] 28.0 pg 26. 0 - 34.0 pg [facility] MCHC (RBC) [Mass/Vol] 31.5 % 30.5 - 36.0 % [facility] MCV (RBC) [Entitic vol] 88.9 fL 77.0 - 99.0 fL [facility] Monocytes (Bld) [#/Vol] 1.4 10*3/uL High 0.0 - 0.9 10*3/uL [facility] Monocytes/100 WBC (Bld) 9.0 % 5.0 - 13.0 % [facility] Neutrophils (Bld) [#/Vol] 11.8 10*3/uL High 1. 8 - 7.5 10*3/uL [facility] Neutrophils/100 WBC (Bld) 75.8 % 38 .0 - 82.0 % [facility] Nucleated RBC/100 WBC (Bld) [Ratio] 0.0 % [facility] Platelet mean volume (Bld) [Entitic vol] 10.1 fL 9.0 - 12.7 fL [facility] Platelets (Bld) [#/Vol] 375 10*3/uL 140 - 440 10*3/uL [facility] RBC (Bld) [#/Vol] 4.96 10*6/uL 3.80 - 5.2 0 10*6/uL [facility] WBC (Bld) [#/Vol] 15.5 10*3/uL High 3.6 - 10.7 10*3/uL [facility] CBC WITH AUTO DIFFERENTIALon 06-18-2023 Basophils (Bld) [#/Vol] 0.1 10*3/uL Normal 0.0-0.2 [facility] Comment on above: Performed By: #### L [id number] ####Safety Net Maker: ALEXANDRA BUSTAMANTE ([id number])[facility] ([facility])[address] [place] [address] [place] Basophils/100 WBC (Bld) 0.4 % Normal 0.0-2.0 [facility] Comment on above: Performed By: #### L [id number] ####Safety Net Maker: ALEXANDRA BUSTAMANTE ([id number])[facility])[address] [place] [address] Eosinophils (Bld) [#/Vol] 0.2 10*3/uL Normal 0.0-0.5 [facility] Comment on above: Performed By: #### L [id number] ####Safety Net Maker: ALEXANDRA BUSTAMANTE ([id number])[facility] ([facility])[address] [place] [address] Eosinophils/100 WBC (Bld) 1.3 % Normal 0.0-6.0 [facility] Comment on above: Performed By: #### L [id number] ####Safety Net Maker: ALEXANDRA BUSTAMANTE ([id number])[facility])[address] [place] [address] Erythrocyte distribution width (RBC) [Ratio] 13.8 % Normal 11.5-15.0 [facility] Comment on above: Performed By: #### L [id number] ####Safety Net Maker: ALEXANDRA BUSTAMANTE ([id number])[facility])[address] [place] [address] Hematocrit (Bld) [Volume fraction] 44.1 % Normal 35.0-47.0 [facility] Comment on above: Performed By: #### L [id number] ####Safety Net Maker: ALEXANDRA BUSTAMANTE ([id number])[facility])[address] [place] [address] [place] Hemoglobin (Bld) [Mass/Vol] 13.9 g/dL Normal 11.7-16.0 [facility] Comment on above: Performed By: #### L [id number] ####Safety Net Maker: ALEXANDRA BUSTAMANTE ([id number])[facility])[address] [place] [address] IMMATURE GRANS % 0.4 % Normal 0.0-2.0 [facility] Comment on above: Performed By: #### L [id number] ####Safety Net Maker: ALEXANDRA BUSTAMANTE ([id number])[facility])[address] [place] [address] IMMATURE GRANS ABSOLUTE 0.1 10*3/uL High <0.1 [facility] Comment on above: Performed By: #### L [id number] ####Safety Net Maker: ALEXANDRA BUSTAMANTE ([id number])[facility])[address] [place] [address] Lymphocytes (Bld) [#/Vol] 2.0 10*3/uL Normal 1.0-4.3 [facility] Comment on above: Performed By: #### L [id number] ####Safety Net Maker: ALEXANDRA BUSTAMANTE ([phone])[facility])[address] [place] [address] Lymphocytes/100 WBC (Bld) 13.1 % Low 15.0-45.0 [facility] Comment on above: Performed By: #### L [id number] ####Safety Net Maker: ALEXANDRA BUSTAMANTE ([phone])[facility])[address] [place] [address] MCH (RBC) [Entitic mass] 28.0 pg Normal 26.0-34.0 [facility] Comment on above: Performed By: #### L [id number] ####Safety Net Maker: ALEXANDRA BUSTAMANTE ([id number])[facility])[address] [place] [address] MCHC 31.5 % Normal 30.5-36.0 [facility] Comment on above: Performed By: #### L [id number] ####Safety Net Maker: ALEXANDRA BUSTAMANTE ([id number])[facility] ([facility])[address] [place] [address] MCV (RBC) [Entitic vol] 88.9 fL Normal 77.0-99.0 [facility] Comment on above: Performed By: #### L [id number] ####Safety Net Maker: ALEXANDRA BUSTAMANTE ([id number])[facility] ([facility])[address] [place] [address] Monocytes (Bld) [#/Vol] 1.4 10*3/uL High 0.0-0.9 [facility] Comment on above: Performed By: #### L [id number] ####Safety Net Maker: ALEXANDRA BUSTAMANTE ([id number])[facility] ([facility])[address] [place] [address] Monocytes/100 WBC (Bld) 9.0 % Normal 5.0-13.0 [facility] Comment on above: Performed By: #### L [id number] ####Safety Net Maker: ALEXANDRA BUSTAMANTE ([id number])[facility] ([facility])[address] [place] [address] NEUTROPHILS ABSOLUTE 11.8 10*3/uL High 1.8-7.5 [facility] Comment on above: Performed By: #### L [id number] ####Safety Net Maker: ALEXANDRA BUSTAMANTE ([id number])[facility] ([facility])[address] [place] [address] Neutrophils/100 WBC (Bld) 75.8 % Normal 38.0-82.0 [facility] Comment on above: Performed By: #### L [id number] ####Safety Net Maker: ALEXANDRA BUSTAMANTE ([id number])[facility] ([facility])[address] [place] [address] NRBC 0.0 /100 WBCs Normal 0.0-2.0 [facility] Comment on above: Performed By: #### L [id number] ####Safety Net Maker: ALEXANDRA BUSTAMANTE ([id number])[facility] ([facility])[address] [place] [address] Platelet mean volume (Bld) [Entitic vol] 10.1 fL Normal 9.0-12.7 [facility] Comment on above: Performed By: #### L [id number] ####Safety Net Maker: ALEXANDRA BUSTAMANTE ([id number])[facility])[address] [place] [address] Platelets (Bld) [#/Vol] 375 10*3/uL Normal 140-440 [facility] Comment on above: Performed By: #### L [id number] ####Safety Net Maker: ALEXANDRA BUSTAMANTE ([phone])[facility])[address] [place] [address] RBC (Bld) [#/Vol] 4.96 10*6/uL Normal 3.80-5.20 [facility] Comment on above: Performed By: #### L [id number] ####Safety Net Maker: ALEXANDRA BUSTAMANTE ([id number])[facility] ([facility])[address] [place] [address] WBC (Bld) [#/Vol] 15.5 10*3/uL High 3.6-10.7 [facility] Comment on above: Performed By: #### L [id number] ####Safety Net Maker: ALEXANDRA BUSTAMANTE ([phone])[facility])[address] [place] [address] HEMOGLOBIN A1Con 06-18-2023 HbA1c (Bld) [Mass fraction] 7.3 % High <5.7 [facility] Comment on above: Order Comment: If no t done within the last 3 mos Result Comment: Norm al less than 5.7% Prediabetes 5.7% to 6.4% Diabetes 6.5% or higher --HgbA1C levels may not be accurate in patients who have renal disease, received recent blood transfusions, are anemic, or who have dyshemoglobinemia. Performed By: #### L [id number] ####Safety Net Maker: ALEXANDRA BUSTAMANTE ([phone])[facility])[address] [place] [address] IDNon 06-18-2023 IDN The patient is Moderately Stable - Low risk of patient condition declining or worsening The patient's goals for the shift include rest and pain control The clinical goals for the shift include rest and pain control Normal [facility] Laboratory - Chemistry and C hemistry - challengeon 06-18-2023 Glucose [Mass/Vol] 189 mg/dL High 70 - 100 mg/dL [facility] Procalcitonin [Mass/Vol] 0.06 ng/mL 0.0 0 - 0.09 ng/mL [facility] Glucose [Mass/Vol] 121 mg/dL High 70 - 100 mg/dL [facility] Average glucose Estimated from glycated hemoglobin (Bld) [Mass/Vol] 163 mg/dL [facility] Laboratory - Hematology and Cell countson 06-18-2023 HbA1c (Bld) [Mass fraction] 7.3 % High NINF - 5.7 % [facility] Comment on above: Normal less than 5.7 % Prediabetes 5.7% to 6.4% Diabetes 6.5% or higher --HgbA1C levels may not be accurate in patients who have renal disease, received recent blood transfusions, are anemic, or who have dyshemoglobinemia. No Panel Informationon 06-17 Interpretation and review of laboratory results Abnormal [facility] Performed by: [facility], [address] [place] [address] CLIA ID: [id number] [facility] There is no interpretation needed for this exam. IMAGING Interpretation and review of laboratory results Abnormal [facility] Performed by: [facility], [address] [place] [address] CLIA ID: [id number] [facility] Interpretation and review of laboratory results Abnormal [facility] Radiology Study observation (narrative) Trina isabel Radiology Study observation (narrative) Trina isabel Nursing Noteon 06-18-2023 Nursing Note Pt states no need to contact family. RN on floor states she will call pt's son,. Normal [facility] Nursing Note Patients wallet and watch locked up with security. OR notified patient states she has latex allergy Patients purse and glasses taken to pacu Normal [facility] Op Noteon 06-18-2023 Op Note [facility] [address] [facility] [address] Dept: [phone] Loc: [phone] Operative Report Patient Name: Ezra Gonzalez Date of : 1935 Date of Surgery: 06/18/23 Pre-operative diagnosis: Right intra-articular distal humerus fracture Post-operative diagnosis: Same Procedure(s): Open reduction internal fixation of right intra-articular distal humerus fracture Surgeon: Benitez Givens M.D. [place] Shear Operator(s): Lexa Aparicio M.D. Anesthesia: General and [...] as well as medical complications such as MA, stroke, PE, DVT, and even . Pt [...] Lexa Aparicio MD at 06/18/23, 7:20 PM [facility] Op Note Date: 06/16/2023 - 06/18/2023 Location: [facility] OR Name: Ezra Gonzalez, : 1935, Diagnosis Pre-op Diagnosis * Closed displaced fracture of medial condyle of right humerus, initial encounter [S42.629J] Post-op Diagnosis * Closed displaced fracture of medial condyle of right humerus, initial encounter [S42.849Z] Procedures OPEN REDUCTION INTERNAL FIXATION RIGHT DISTAL HUMERUS 17235 - CA OPTX HUMERAL SHFT FX W/PLATE/SCREWS W/WOCERCLAGE Surgeons * Benitez Givens - Primary Procedure Summary Anesthesia: * No anesthesia type entered * ASA: III Estimated Blood Loss: Minimal Drains: * None in log * Staff: Manager Harbor: Vivian Herrera RN Scrub Person: Linda Alvarez [...] in 2 weeks -Ortho to follow. Normal [facility] PROCALCITONIN TESTon 024 PROCALCITONIN 0.06 ng/mL Normal 0.00-0.09 [facility] Comment on above: Result Comment: ORDE R COMMENTS: PCT <0.50 = Low risk of severe sepsis and/or septic shock. PCT >2.00 = High risk of severe sepsis and/or septic shock. Performed By: #### L [id number] ####Safety Net Maker: ALEXANDRA BUSTAMANTE ([id number])[facility] ([id number] Procalcitonin [Mass/Vol]on 0 06-18-2023 Interpretation and review of laboratory results Normal [facility] PCT <0.50 = Low risk of severe sepsis and/or septic shock. PCT >2.00 = High risk of severe sepsis and/or septic shock. [facility] Progress Noteon 06-18-2023 Progress Note Nutrition rescreen completed. Chart reviewed. Patient to be monitored and followed by the diet communication electronic technician. Ele Butcher, DT [facility] Progress Note OCCUPATIONAL THERAPY [facility] Name/MRN: Ezra Gonzalez ([id number]) Date: 06/18/2023 OT eval and treat order received. Patient chart reviewed. Per Ortho note, Plan for ORIF od R distal humerus. Will hold evaluation till after surgery. Louisa Cespedes, OT Normal [facility] Progress Note PHYSICAL THERAPY [facility] Name/MRN: Ezar Gonzalez ([id number]) Date: 06/18/2023 PT orders received and chart reviewed. Per ortho note, Plan for ORIF R distal humerus. Will hold and attempt following surgery. Maryanne Neumann, PT [facility] ECG 12-LEADon 06-17-2023 ECG 12-LEAD IMPRESSION: Atrial fibrillation Probable left ventricular hypertrophy No previous ECG for comparison Electronically Signed On 06-17-2023 06:39:12 EDT by Thong Francois [facility] ED Nursing Noteon 06-17-2023 ED Nursing Note Patient resting in bed at this time, equal unlabored respirations noted and no acute distress, call león within reach Di Reyna RN 06/17/23 1153 [facility] ED Nursing Note Pt O2 desaturating t o mid 80s after receiving dilaudid IV. Pt placed on 2L NC and immediately back up to 95%. notified Alia Foster RN 06/17/23 1031 [facility] ED Nursing Note Pt upset with [...] US IV line. Juanjo Pringle RN 06/16/23 [id number] Normal [facility] Laboratory - Chemistry and C hemistry - challengeon 06-17-2023 Glucose [Mass/Vol] 137 mg/dL High 70 - 100 mg/dL [facility] Laboratory - Coagulationon 0 06-17-2023 PT Coag (Bld) [Time] 14.5 s High 9.0 - 12.0 s [facility] No Panel Informationon 06-16 Interpretation and review of laboratory results Abnormal [facility] th Performed by: [facility], [address] [place] [address] CLIA ID: [id number] [facility] Atrial fibrillation Probable left ventricular hypertrophy No previous ECG for comparison Electronically Signed On 06-17-2023 06:39:12 EDT by Thong Francois CV Thong Vázquez D O - 06/17/2023 IMPRESSION: Atrial fibrillation Probable left ventricular hypertrophy No previous ECG for comparison Electronically Signed On 06-17-2023 06:39:12 EDT [facility] Radiology Study observation (narrative) [facility] No Panel InformationOrdered By: Thong Francois on 06-17-2023 P [place] 0 degrees [facility] [employer] Work Phone: CA Interval 0 ms [facility] Work Phone: QRS [place] -24 degrees [facility] [employer] Work Phone: QRSD Interval 103 ms [facility] h Work Phone: QT Interval 382 ms [facility] [employer] Work Phone: QTC Interval 442 ms [facility] [employer] Work Phone: T Wave [place] 31 degrees [facility] [employer] Work Phone: [facility] Work Phone: Nursing Noteon 06-17-2023 Nursing Note Patient home medication list updated, provider made aware. Normal [facility] PROTHROMBIN TIMEon INR Coag (PPP) [Relative time] 1.4 {INR} High 0.9-1.1 [facility] Comment on above: Result Comment: Reji [...] Infarction Performed By: #### L [id number] #### Safety Net Maker: ALEXANDRA BUSTAMANTE ([phone]) [facility] ([facility]) [address] [place] [address] PT Coag (PPP) [Time] 14.5 s High 9.0-12.0 [facility] Comment on above: Performed By: #### L [id number] #### Safety Net Maker: ALEXANDRA BUSTAMANTE ([phone]) [facility] ([facility]) [address] [place] [address] [place] PT Coag (Bld) [Time]on 06-16 INR Coag (PPP) [Relative time] 1.4 {INR} High 0.9 - 1.1 [facility] Comment on above: Recommended Anticoag [...] Interpretation and review of laboratory results Abnormal [facility] Progress Noteon 06-17-2023 Progress Note Due to OR availability, case cancelled for today. Moved to tomorrow, 06/17. Ok for diet today. NPO @NC. Keep splint C/D/I. Evette Viera MD Orthopaedic Surgery, PGY-5 [phone] Normal [facility] Vital signsOrdered By: Neeta Francois on 06-17-2023 Heart rate 80 /min bpm [facility] Work Phone: XR Chest Single viewon 06-16 No acute cardiopulmonary process identified. Other chronic findings as discussed. 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 [facility] Houston Chau MD - 06/17/2023 Patient [...] Electronically Signed Date/Time: 06/17/2023 12:44 AM EDT [facility] Radiology Study observation (narrative) [facility] XR Chest Single viewOrdered By: Houston Chau on 06-17-2023 [facility] Work Phone: Absolute lymphocyte countOrd ered By: Lali Pimentel on 06-16-2023 Lymphocytes Auto (Unsp spec) [#/Vol] 3.86 10*3/uL 0.83-4.51 [facility] Automated lymphocyte count a s percentage of total leukocytesOrdered By: Lali Pimentel on 06-16-2023 Lymphocytes/100 WBC Auto (Unsp spec) 23.0 % 19-41 [facility] BASIC METABOLIC PANELon 05-29 Anion gap [Moles/Vol] 7 mmol/L Normal 3-13 [facility] Comment on above: Performed By: #### L [id number] ####Safety Net Maker: ALEXANDRA BUSTAMANTE ([phone])[facility] ([facility])[address] [place] [address] Calcium [Mass/Vol] 8.6 mg/dL Normal 8.4-10.4 [facility] Comment on above: Performed By: #### L [id number] ####Safety Net Maker: ALEXANDRA BUSTAMANTE ([phone])[facility] ([facility])[address] [place] [address] [place] Chloride [Moles/Vol] 99 mmol/L Normal 98-107 [facility] Comment on above: Performed By: #### L [id number] ####Safety Net Maker: ALEXANDRA BUSTAMANTE ([phone])[facility] ([facility])[address] [place] [address] [place] CO2 [Moles/Vol] 29 mmol/L Normal 22-30 [facility] Comment on above: Performed By: #### L [id number] ####Safety Net Maker: ALEXANDRA BUSTAMANTE ([phone])[facility])[address] [place] [address] Creatinine [Mass/Vol] 0.79 mg/dL Normal 0.52-1.04 [facility] Comment on above: Performed By: #### L [id number] ####Safety Net Maker: ALEXANDRA BUSTAMANTE ([phone])[facility])[address] [place] [address] GLOMERULAR FILTRATION RATE ML/MIN/1.73 SQ M.PREDICTED 72.5 mL/min/1.73m*2 Normal >60.0 [facility] Comment on above: Result Comment: Calc ulation based on the Chronic Kidney Disease Epidemiology Collaboration (CKD-EPI) equation refit without adjustment for race Performed By: #### L [id number] ####Safety Net Maker: ALEXANDRA BUSTAMANTE ([phone])[facility])[address] [place] [address] Glucose [Mass/Vol] 186 mg/dL High 70-100 [facility] Comment on above: Performed By: #### L [id number] ####Safety Net Maker: ALEXANDRA BUSTAMANTE ([phone])[facility])[address] [place] [address] Potassium [Moles/Vol] 4.5 mmol/L Normal 3.5-5.1 [facility] Comment on above: Performed By: #### L [id number] ####Safety Net Maker: ALEXANDRA BUSTAMANTE ([phone])[facility])[address] [place] [address] [place] Sodium [Moles/Vol] 136 mmol/L Normal 135-145 [facility] Comment on above: Performed By: #### L [id number] ####Safety Net Maker: ALEXANDRA BUSTAMANTE ([phone])[facility])[address] [place] [address] Urea nitrogen [Mass/Vol] 26 mg/dL High 7-17 [facility] Comment on above: Performed By: #### L [id number] ####Safety Net Maker: ALEXANDRA BUSTAMANTE ([phone])[facility] ([facility])[address] [place] [address] BLOOD TYPE AND SCREEN GELon 06-16-2023 ABO GROUPING A Normal [facility] Comment on above: Performed By: #### L [id number] ####Safety Net Maker: ALEXANDRA BUSTAMANTE ([phone])[facility] ([facility])[address] [place] [address] RH TYPE IN BLOOD Positive Normal [facility] Comment on above: Performed By: #### L [id number] ####Safety Net Maker: ALEXANDRA BUSTAMANTE ([phone])[facility] ([facility])[address] [place] [address] Basic metabolic 1998 panelon 06-16-2023 Anion gap [Moles/Vol] 7 mmol/L 3 - 13 mmol/L [facility] Calcium [Mass/Vol] 8.6 mg/dL 8.4 - 10. 4 mg/dL [facility] Chloride [Moles/Vol] 99 mmol/L 98 - 10 7 mmol/L [facility] CO2 [Moles/Vol] 29 mmol/L 22 - 30 mmol/L [facility] Creatinine [Mass/Vol] 0.79 mg/dL 0.52 - 1.04 mg/dL [facility] GFR/1.73 sq M.predicted MDRD (S/P/Bld) [Vol rate/Area] 72.5 mL/min/{1.73_m2} - PINF [facility] Comment on above: Calculation based on the Chronic Kidney Disease Epidemiology Collaboration (CKD-EPI) equation refit without adjustment for race Glucose [Mass/Vol] 186 mg/dL High 70 - 100 mg/dL [facility] Interpretation and review of laboratory results Abnormal [facility] Potassium [Moles/Vol] 4.5 mmol/L 3.5 - 5.1 mmol/L [facility] Sodium [Moles/Vol] 136 mmol/L 135 - 145 mmol/L [facility] Urea nitrogen [Mass/Vol] 26 mg/dL High 7 - 17 mg/d L [facility] Basophil percentageOrdered B y: Lali Pimentel on 06-16-2023 Basophils/100 WBC (Bld) 0.4 % 0-1 [facility] Chloride [Moles/Vol] 104 mmol/L 98-107 [facility] Eosinophils/100 WBC (Bld) 1.3 % 0-5 [facility] Glucose [Mass/Vol] 191 mg/dL 74-106 [facility] Comment on above: Fasting Glucose resu lt greater than or equal to 126 mg/dL suggests DIABETES MELLITUS per A.D.A. criteria. Hemoglobin (Bld) [Mass/Vol] 13.6 g/dL 12.0-15.0 [facility] Monocytes/100 WBC (Bld) 7.0 % 0-10 [facility] Neutrophils (Bld) [#/Vol] 11.4 10*3/uL 2.0-7.7 [facility] Neutrophils/100 WBC (Bld) 67.8 % 47-70 [facility] Potassium [Moles/Vol] 3.4 mmol/L 3.5-5.1 [facility] Sodium [Moles/Vol] 140 mmol/L 136-145 [facility] WBC (Bld) [#/Vol] 16.8 10*3/uL 4.4-11.0 [facility] Blood type and Crossmatch pa ro (Bld)on 06-16-2023 Blood group antibody screen GEL Ql Negative [facility] CBC W Auto Differential pane l (Bld)on 06-16-2023 Basophils (Bld) [#/Vol] 0.0 10*3/uL 0.0 - 0.2 10*3/uL [facility] Basophils/100 WBC (Bld) 0.2 % 0.0 - 2.0 % [facility] Eosinophils (Bld) [#/Vol] 0.0 10*3/uL 0. 0 - 0.5 10*3/uL [facility] Eosinophils/100 WBC (Bld) 0.0 % 0.0 - 6.0 % [facility] Erythrocyte distribution width (RBC) [Ratio] 13.6 % 11.5 - 15.0 % [facility] Hematocrit (Bld) [Volume fraction] 38.9 % 35.0 - 47.0 % [facility] Hemoglobin (Bld) [Mass/Vol] 12.8 g/dL 11.7 - 16.0 g/dL [facility] Immature granulocytes (Bld) [#/Vol] 0.1 10*3/uL High NINF - 0.1 10*3/uL [facility] Immature granulocytes/100 WBC (Bld) 0.6 % 0.0 - 2.0 % [facility] Interpretation and review of laboratory results Abnormal [facility] th Lymphocytes (Bld) [#/Vol] 1.1 10*3/uL 1. 0 - 4.3 10*3/uL [facility] Lymphocytes/100 WBC (Bld) 6.5 % Low 15 .0 - 45.0 % [facility] MCH (RBC) [Entitic mass] 29.1 pg 26. 0 - 34.0 pg [facility] MCHC (RBC) [Mass/Vol] 32.9 % 30.5 - 36.0 % [facility] MCV (RBC) [Entitic vol] 88.4 fL 77.0 - 99.0 fL [facility] Monocytes (Bld) [#/Vol] 0.7 10*3/uL 0.0 - 0.9 10*3/uL [facility] Monocytes/100 WBC (Bld) 4.4 % Low 5.0 - 13.0 % [facility] Neutrophils (Bld) [#/Vol] 14.3 10*3/uL High 1. 8 - 7.5 10*3/uL [facility] Neutrophils/100 WBC (Bld) 88.3 % High 38 .0 - 82.0 % [facility] Nucleated RBC/100 WBC (Bld) [Ratio] 0.0 % [facility] Platelet mean volume (Bld) [Entitic vol] 9.9 fL 9.0 - 12.7 fL [facility] Platelets (Bld) [#/Vol] 357 10*3/uL 140 - 440 10*3/uL [facility] RBC (Bld) [#/Vol] 4.40 10*6/uL 3.80 - 5.2 0 10*6/uL [facility] WBC (Bld) [#/Vol] 16.2 10*3/uL High 3.6 - 10.7 10*3/uL [facility] CBC WITH AUTO DIFFERENTIALon 06-16-2023 Basophils (Bld) [#/Vol] 0.0 10*3/uL Normal 0.0-0.2 [facility] Comment on above: Performed By: #### L [id number] ####Safety Net Maker: ALEXANDRA BUSTAMANTE ([phone])[facility])[address] [place] [address] Basophils/100 WBC (Bld) 0.2 % Normal 0.0-2.0 [facility] Comment on above: Performed By: #### L [id number] ####Safety Net Maker: ALEXANDRA BUSTAMANTE ([id number])[facility])[address] [place] [address] Eosinophils (Bld) [#/Vol] 0.0 10*3/uL Normal 0.0-0.5 [facility] Comment on above: Performed By: #### L [id number] ####Safety Net Maker: ALEXANDRA BUSTAMANTE ([phone])[facility])[address] [place] [address] Eosinophils/100 WBC (Bld) 0.0 % Normal 0.0-6.0 [facility] Comment on above: Performed By: #### L [id number] ####Safety Net Maker: ALEXANDRA BUSTAMANTE ([phone])[facility])[address] [place] [address] Erythrocyte distribution width (RBC) [Ratio] 13.6 % Normal 11.5-15.0 [facility] Comment on above: Performed By: #### L [id number] ####Safety Net Maker: ALEXANDRA BUSTAMANTE ([phone])[facility])[address] [place] [address] Hematocrit (Bld) [Volume fraction] 38.9 % Normal 35.0-47.0 [facility] Comment on above: Performed By: #### L [id number] ####Safety Net Maker: ALEXANDRA BUSTAMANTE ([phone])[facility])[address] [place] [address] Hemoglobin (Bld) [Mass/Vol] 12.8 g/dL Normal 11.7-16.0 [facility] Comment on above: Performed By: #### L [id number] ####Safety Net Maker: ALEXANDRA [id number])[facility] ([facility])[address] [place] [address] IMMATURE GRANS % 0.6 % Normal 0.0-2.0 [facility] Comment on above: Performed By: #### L [id number] ####Safety Net Maker: ALEXANDRA BUSTAMANTE ([phone])[facility])[address] [place] [address] IMMATURE GRANS ABSOLUTE 0.1 10*3/uL High <0.1 [facility] Comment on above: Performed By: #### L [id number] ####Safety Net Maker: ALEXANDRA BUSTAMANTE ([phone])[facility])[address] [place] [address] Lymphocytes (Bld) [#/Vol] 1.1 10*3/uL Normal 1.0-4.3 [facility] Comment on above: Performed By: #### L [id number] ####Safety Net Maker: ALEXANDRA BUSTAMANTE ([phone])[facility])[address] [place] [address] Lymphocytes/100 WBC (Bld) 6.5 % Low 15.0-45.0 [facility] Comment on above: Performed By: #### L [id number] ####Safety Net Maker: ALEXANDRA BUSTAMANTE ([id number])[facility])[address] [place] [address] MCH (RBC) [Entitic mass] 29.1 pg Normal 26.0-34.0 [facility] Comment on above: Performed By: #### L [id number] ####Safety Net Maker: ALEXANDRA BUSTAMANTE ([id number])[facility])[address] [place] [address] MCHC 32.9 % Normal 30.5-36.0 [facility] Comment on above: Performed By: #### L [id number] ####Safety Net Maker: ALEXANDRA BUSTAMANTE ([phone])[facility])[address] [place] [address] MCV (RBC) [Entitic vol] 88.4 fL Normal 77.0-99.0 [facility] Comment on above: Performed By: #### L [id number] ####Safety Net Maker: ALEXANDRA BUSTAMANTE ([id number])[facility])[address] [place] [address] Monocytes (Bld) [#/Vol] 0.7 10*3/uL Normal 0.0-0.9 [facility] Comment on above: Performed By: #### L [id number] ####Safety Net Maker: ALEXANDRA BUSTAMANTE ([id number])[facility] ([facility])[address] [place] [address] Monocytes/100 WBC (Bld) 4.4 % Low 5.0-13.0 [facility] Comment on above: Performed By: #### L [id number] ####Safety Net Maker: ALEXANDRA BUSTAMANTE ([phone])[facility])[address] [place] [address] NEUTROPHILS ABSOLUTE 14.3 10*3/uL High 1.8-7.5 [facility] Comment on above: Performed By: #### L [id number] ####Safety Net Maker: ALEXANDRA BUSTAMANTE ([phone])[facility])[address] [place] [address] Neutrophils/100 WBC (Bld) 88.3 % High 38.0-82.0 [facility] Comment on above: Performed By: #### L [id number] ####Safety Net Maker: ALEXANDRA BUSTAMANTE ([id number])[facility] ([facility])[address] [place] [address] NRBC 0.0 /100 WBCs Normal 0.0-2.0 [facility] Comment on above: Performed By: #### L [id number] ####Safety Net Maker: ALEXANDRA BUSTAMANTE ([id number])[facility])[address] [place] [address] Platelet mean volume (Bld) [Entitic vol] 9.9 fL Normal 9.0-12.7 [facility] Comment on above: Performed By: #### L [id number] ####Safety Net Maker: ALEXANDRA BUSTAMANTE ([phone])[facility] ([facility])[address] [place] [address] Platelets (Bld) [#/Vol] 357 10*3/uL Normal 140-440 [facility] Comment on above: Performed By: #### L [id number] ####Safety Net Maker: ALEXANDRA BUSTAMANTE ([id number])[facility] ([facility])[address] [place] [address] RBC (Bld) [#/Vol] 4.40 10*6/uL Normal 3.80-5.20 [facility] Comment on above: Performed By: #### L [id number] ####Safety Net Maker: ALEXANDRA BUSTAMANTE ([id number])[facility] ([facility])[address] [place] [address] WBC (Bld) [#/Vol] 16.2 10*3/uL High 3.6-10.7 [facility] Comment on above: Performed By: #### L [id number] ####Safety Net Maker: ALEXANDRA BUSTAMANTE ([phone])[facility] ([facility])[address] [place] [address] CT ELBOW RIGHT WO IV CONTRAS Ton [...] condyle of right humerus, initial encounter Normal [facility] CT Elbow - right WO contrast on 06-16-2023 Impression: Extensively comminuted supracondylar humerus fracture. The fracture has multiple foci of articular extension to the lateral and central aspect of the condyle. Report Dictated on Electronically Signed By: Pastor Francisco MD Electronically Signed Date/Time: 06/16/2023 6:13 PM T [facility] EMERGENCY [facility]PART[facility] RADIOLOGY SYSTEM Patient Name: EZRA GONZALEZ : 1935 [id number] Exam Date/Time: 06/16/2023 18:01 Procedure: CT ELBOW [...] process fracture. Joint effusion. Decreased osseous mineralization. [facility] EMERGENCY [facility] RADIOLOGY SYSTEM Pastor Francisco MD - 06/16/2023 [...] Electronically Signed Date/Time: 06/16/2023 6:13 PM EDT [facility] Radiology Study observation (narrative) [facility] chalo Consulton 06-16-2023 Consult Ortho Consult Patient: Ezra Gonzalez Date of : 1935 Acct: [id number] PCP: No primary care provider on file. Date of Admission: 06/16/2023 Date of Service: Pt seen/examined on 06/16/2023 Chief Complaint: right distal humerus fracture History Of Present Illness: This is a 87 y.o. right hand dominant female who presents with a right distal humerus fracture after a fall at home. Patient originally presented to [facility] where she was splinted and transferred to [facility] ED for ortho eval. Patient denies numbness, tingling, or weakness. Denies pain elsewhere and denies head trauma or LOC. 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 Patient has prior ortho surgery history of bilateral TKAs and right shoulder surgery, left carpal tunnel release, all at [facility]. Denies alcohol, tobacco, drug use. Patient [...] (RBC) [Entitic vol] 90.3 fL 81-99 [facility] ED Provider Noteon ED Provider Note Emergency Department Encounter [facility] EMERGENCY DEPT Patient: Ezra Gonzalez : [...] for clarification.) Sae Conde MD Acute Care [facility] Sae Conde MD 06/16/23 [facility] ED Provider Note EMERGENCY DEPARTMENT ENCOUNTER [...] injury anywhere else. Patient was evaluated at [facility] emergency department prior to arrival and was noted to have a distal humerus fracture. Patient was transferred to [facility] ED for orthopedic consultation. Patient denies [...] 4.4 (*) (more content not included)... Normal [facility] Erythrocyte distribution wid th ratioOrdered By: Lali Pimentel on 06-16-2023 Erythrocyte distribution width (RBC) [Ratio] 13.3 % 11.6-14.6 [facility] Erythrocyte distribution wid th standard deviationOrdered By: Lali Pimentel on 06-16-2023 Erythrocyte distribution width (RBC) [Entitic vol] 43.9 fL 35.1-43.9 [facility] Hematocrit Auto (Bld) [Volum e fraction]Ordered By: Lali Pimentel on 06-16-2023 Hematocrit (Bld) [Volume fraction] 42.6 % 37-47 [facility] Immature granulocytes/100 WB C Auto (Bld)Ordered By: Lali Pimentel on 06-16-2023 Immature granulocytes/100 WBC (Bld) 0.500 % 0.0-0.9 [facility] Comment on above: IG% - Immature Granu locytes (promyelocytes, myelocytes and metamyelocytes) > 1% indicates that a LEFT SHIFT is Present. Laboratory - Blood bankon ABO group Nom (Bld) A [facility] D Ag Ql (RBC) Positive [facility] Laboratory - Chemistry and C hemistry - challengeOrdered By: Lali Pimentel on 06-16-2023 CO2 [Moles/Vol] 31.0 mmol/L 21.0-32.0 [facility] Urea nitrogen/Creatinine [Mass ratio] 20.9 mg/mg 10-20 [facility] Laboratory - Coagulationon 0 06-16-2023 PT Coag (Bld) [Time] 22.3 s High 9.0 - 12.0 s [facility] Laboratory - CoagulationOrde red By: Lali Pimentel on 06-16-2023 INR Coag (Bld) [Relative time] 2.2 {INR} [facility] PT Coag (PPP) [Time] 24.3 s 11.7-14.9 [facility] Laboratory - Hematology and Cell countsOrdered By: Lali Pimentel on 06-16-2023 MCH (RBC) [Entitic mass] 28.8 pg 27.0-32.0 [facility] MCHC (RBC) [Mass/Vol] 31.9 g/dL 32-36 [facility] Nucleated RBC/100 WBC (Bld) [Ratio] 0 % 0-5 [facility] Platelet mean volume (Bld) [Entitic vol] 9.9 fL 6.2-12.0 [facility] Platelets (Bld) [#/Vol] 414 10*3/uL 150-450 [facility] No Panel Informationon 06-15 [facility] No Panel InformationOrdered By: Lali Pimentel on 06-16-2023 Estimated Creatinine Clearance Calc 35.56 ml/min [facility] Estimated GFR (MDRD) Amer 57 mL/min >60 [facility] Comment on above: GFR Calc Estimated GFR (MDRD) Non-Af Amer 47 mL/min >60 [facility] Comment on above: Non- GFR Calc PROTHROMBIN TIMEon INR Coag (PPP) [Relative time] 2.2 {INR} High 0.9-1.1 [facility] Comment on above: Result Comment: Reji [...] Myocardial Infarction Performed By: #### Akanksha [id number] ####Safety Net Maker: ALEXANDRA BUSTAMANTE ([phone])[facility] ([facility])[address] [place] [address] PT Coag (PPP) [Time] 22.3 s High 9.0-12.0 [facility] Comment on above: Performed By: #### Akanksha [id number] ####Safety Net Maker: ALEXANDRA BUSTAMANTE ([phone])[facility] ([facility])[address] [place] [address] PT Coag (Bld) [Time]on 06-15 INR Coag (PPP) [Relative time] 2.2 {INR} High 0.9 - 1.1 [facility] Comment on above: Recommended Anticoag [...] 06-16-2023 RBC (Bld) [#/Vol] 4.72 10*6/uL 4.2-5.4 [facility] Serum or plasma calcium viktoria urement (mass/volume)Ordered By: Lali Pimentel on 06-16-2023 Calcium [Mass/Vol] 8.8 mg/dL 8.5-10.1 [facility] Serum or plasma creatinine m easurement (mass/volume)Ordered By: Lali Pimentel on 06-16-2023 Creatinine [Mass/Vol] 1.15 mg/dL 0.55-1.02 [facility] Comment on above: The validity of the calculated GFR & GFRAA in patients over 70 years has not been determined. Clinical correlation is essential. Serum or plasma urea nitroge n measurement (mass/volume)Ordered By: Lali Pimentel on 06-16-2023 Urea nitrogen [Mass/Vol] 24 mg/dL 10-15 [facility] Thin prep Papanicolaou smear with manual screeningOrdered By: Lali Pimentel on 06-16-2023 Thin prep Papanicolaou smear with manual screening 5 5- [facility] XR Elbow - right 2 Viewson 0 06-16-2023 Patient Name: EZRA GONZALEZ [facility] 1935 [id number] Exam Date/Time: 06/16/2023 15:20 Procedure: XR ELBOW [...] Electronically Signed Date/Time: 06/16/2023 3:38 PM T [facility]IOLOG[facility] Sae Dudley MD - 06/16/2023 Patient Name: EZRA GONZALEZ : 1935 [id number] Exam Date/Time: 06/16/2023 15:20 Procedure: XR ELBOW [...] Electronically Signed Date/Time: 06/16/2023 3:38 PM EDT [facility] Radiology Study observation (narrative) [facility] XR Elbow - right 2 ViewsOrde red By: Sae Dudley on 06-16-2023 [facility] Work Phone: XR Elbow - right 3 [...] Electronically Signed Date/Time: 06/16/2023 3:24 PM EDT [facility] RADIOLOGY SYSTEM Patient Name: EZRA GONZALEZ : 1935 Exam Date/Time: 06/16/2023 14:30 Procedure: XR ELBOW 3+ VIEWS RIGHT Ordering Provider: TENORIO KASSIDY Reason For Exam: comminuted slightly displaced supracondylar fx of distal humerus with extension to the medial epicondyle - seen at [place] cannot see imaging Examination: Right elbow Clinical Indication: Pain Comparison: None [facility] RADIOLOGY [facility] Pastor Francisco MD - 06/16/2023 Patient Name: EZRA GONZALEZ : 1935 [id number] Exam Date/Time: 06/16/2023 14:30 Procedure: XR ELBOW 3+ VIEWS RIGHT Ordering Provider: TENORIO KASSIDY Reason For Exam: comminuted slightly displaced supracondylar fx of distal humerus with extension to the medial epicondyle - seen at [place] cannot see imaging Examination: Right elbow Clinical [...] Electronically Signed Date/Time: 06/16/2023 3:24 PM EDT [facility] Radiology Study observation (narrative) [facility] XR Elbow - right 3 ViewsOrde red By: Pastor Francisco on 06-16-2023 [facility] Work Phone: XR Shoulder - right [...] Electronically Signed Date/Time: 06/16/2023 3:30 PM EDT [facility] Patient Name: EZRA GONZALEZ : 1935 [...] glenohumeral joint. Acromioclavicular joint appears grossly intact. [facility] Reji Lemus MD - 06/16/2023 Patient [...] Electronically Signed Date/Time: 06/16/2023 3:30 PM EDT [facility] Radiology Study observation (narrative) [facility] Shoulder - right 2 ViewsO rdered By: Reji Lemus on 06-16-2023 [facility] [employer] Work Phone: Capillary blood internationa l normalized ratio (INR)Ordered By: Alexandra Hagen on 05-30-2023 INR Coag ([facility]) [Relative time] 1.7 [facility] Comment on above: Critical Value > 4.0 Whole blood prothrombin time Ordered By: Alexandra Hagen on 05-30-2023 PT Coag (Bld) [Time] 18.0 s 11.7-14.9 [facility] Absolute lymphocyte countOrd ered By: Alexandra Hagen on 05-12-2023 Lymphocytes Auto (Unsp spec) [#/Vol] 1.60 10*3/uL 0.83-4.51 [facility] Automated lymphocyte count a s percentage of total leukocytesOrdered By: Alexandra Hagen on 05-12-2023 Lymphocytes/100 WBC Auto (Unsp spec) 20.2 % 19-41 [facility] Basophil percentageOrdered B y: Alexandra Hagen on 05-12-2023 Basophils/100 WBC (Bld) 0.5 % 0-1 [facility] Chloride [Moles/Vol] 109 mmol/L 98-107 [facility] Eosinophils/100 WBC (Bld) 3.7 % 0-5 [facility] Glucose [Mass/Vol] 206 mg/dL 74-106 [facility] Comment on above: Glucose result great er than or equal to 200 mg/dLsuggests DIABETES MELLITUS per A.D.A. criteria. Hemoglobin (Bld) [Mass/Vol] 13.1 g/dL 12.0-15.0 [facility] Monocytes/100 WBC (Bld) 7.8 % 0-10 [facility] Neutrophils (Bld) [#/Vol] 5.3 10*3/uL 2.0-7.7 [facility] Neutrophils/100 WBC (Bld) 67.5 % 47-70 [facility] Potassium [Moles/Vol] 4.6 mmol/L 3.5-5.1 [facility] Comment on above: Moderate Hemolysis, Result may be falsely increased. Sodium [Moles/Vol] 140 mmol/L 136-145 [facility] WBC (Bld) [#/Vol] 7.9 10*3/uL 4.4-11.0 [facility] Determination of erythrocyte mean corpuscular volume (MCV)Ordered By: Alexandra Hagen on 05-12-2023 MCV (RBC) [Entitic vol] 93.1 fL 81-99 [facility] Erythrocyte distribution wid th ratioOrdered By: Alexandra Hagen on 05-12-2023 Erythrocyte distribution width (RBC) [Ratio] 13.5 % 11.6-14.6 [facility] Erythrocyte distribution wid th standard deviationOrdered By: Alexandra Hagen on 05-12-2023 Erythrocyte distribution width (RBC) [Entitic vol] 46.0 fL 35.1-43.9 [facility] Hematocrit Auto (Bld) [Volum e fraction]Ordered By: Alexandra Hagen on 05-12-2023 Hematocrit (Bld) [Volume fraction] 41.8 % 37-47 [facility] Immature granulocytes/100 WB C Auto (Bld)Ordered By: Alexandra Hagen on 05-12-2023 Immature granulocytes/100 WBC (Bld) 0.300 % 0.0-0.9 [facility] Comment on above: IG% - Immature Granu locytes (promyelocytes, myelocytes and metamyelocytes) > 1% indicates that a LEFT SHIFT is Present. Laboratory - Chemistry and C hemistry - challengeOrdered By: Alexandra Hagen on 05-12-2023 CO2 [Moles/Vol] 25.0 mmol/L 21.0-32.0 [facility] Urea nitrogen/Creatinine [Mass ratio] 13.7 mg/mg 10-20 [facility] Laboratory - Hematology and Cell countsOrdered By: Alexandra Hagen on 05-12-2023 MCH (RBC) [Entitic mass] 29.2 pg 27.0-32.0 [facility] MCHC (RBC) [Mass/Vol] 31.3 g/dL 32-36 [facility] Nucleated RBC/100 WBC (Bld) [Ratio] 0 % 0-5 [facility] Platelet mean volume (Bld) [Entitic vol] 10.6 fL 6.2-12.0 [facility] Platelets (Bld) [#/Vol] 272 10*3/uL 150-450 [facility] No Panel InformationOrdered By: Alexandra Hagen on 05-12-2023 Estimated GFR (MDRD) Amer 53 mL/min >60 [facility] Comment on above: GFR Calc Estimated GFR (MDRD) Non-Af Amer 43 mL/min >60 [facility] Comment on above: Non- GFR Calc RBC Auto (Bld) [#/Vol]Ordere d By: Alexandra Hagen on 05-12-2023 RBC (Bld) [#/Vol] 4.49 10*6/uL 4.2-5.4 [facility] Serum or plasma calcium viktoria urement (mass/volume)Ordered By: Alexandra Hagen on 05-12-2023 Calcium [Mass/Vol] 8.5 mg/dL 8.5-10.1 [facility] Serum or plasma creatinine m easurement (mass/volume)Ordered By: Alexandra Hagen on 05-12-2023 Creatinine [Mass/Vol] 1.24 mg/dL 0.55-1.02 [facility] Comment on above: The validity of the calculated GFR & GFRAA in patients over 70 years has not been determined. Clinical correlation is essential. Serum or plasma urea nitroge n measurement (mass/volume)Ordered By: Alexandra Hagen on 05-12-2023 Urea nitrogen [Mass/Vol] 17 mg/dL 10-15 [facility] Thin prep Papanicolaou smear with manual screeningOrdered By: Alexandra Hagen on 05-12-2023 Thin prep Papanicolaou smear with manual screening 6 5-15 [facility] Whole blood hemoglobin A1c/t otal hemoglobin ratio (mass fraction)Ordered By: Alexandra Hagen on 05-12-2023 HbA1c (Bld) [Mass fraction] 6.8 % 3.8-5.6 [facility] Comment on above: Normal < 5.7 % Predi abetic 5.7 - 6.4 % Diabetic >or= 6.5 % Please note range changes. Capillary blood internationa l normalized ratio (INR)Ordered By: Alexandra Hagen on 05-01-2023 INR Coag (BldC) [Relative time] 2.0 [facility] Comment on above: Critical Value > 4.0 Whole blood prothrombin time Ordered By: Alexandra Hagen on 05-01-2023 PT Coag (Bld) [Time] 21.0 s 11.7-14.9 [facility] International normalized rat io (INR) calculationOrdered By: Alexandra Hagen on 04-17-2023 INR Coag (PPP) [Relative time] 1.8 {INR} [facility] Laboratory - CoagulationOrde red By: Alexandra Xiao on 04-17-2023 PT Coag (PPP) [Time] 21.0 s 11.7-14.9 [facility] Laboratory - CoagulationOrde red By: Alexandra Hagen on 03-20-2023 INR Coag (Bld) [Relative time] 2.4 {INR} [facility] Comment on above: Critical Value > 4.0 Whole blood prothrombin time Ordered By: Alexandra Hagen on 03-20-2023 PT Coag (Bld) [Time] 25.7 s 11.7-14.9 [facility] Basophil percentageOrdered B y: Alexandra Hagen on 02-21-2023 Bilirubin [Mass/Vol] 0.60 mg/dL 0.20-1.00 [facility] Comment on above: For patients on eltr ombopag therapy, use of Dimension [place] TBIL is not recommended. Chloride [Moles/Vol] 107 mmol/L 98-107 [facility] Cholesterol [Mass/Vol] 127 mg/dL <200 [facility] Comment on above: <200 mg/dL Desirable 200-240 mg/dL Borderline >240 mg/dL High Risk Glucose [Mass/Vol] 134 mg/dL 74-106 [facility] Comment on above: Fasting Glucose resu lt greater than or equal to 126 mg/dL suggests DIABETES MELLITUS per A.D.A. criteria. Potassium [Moles/Vol] 4.2 mmol/L 3.5-5.1 [facility] Protein [Mass/Vol] 6.2 g/dL 6.4-8.2 [facility] Sodium [Moles/Vol] 138 mmol/L 136-145 [facility] Triglyceride [Mass/Vol] 102 mg/dL <199 [facility] Comment on above: The drugs N-Acetylcy steine and Metamizole may falsely depress this assay.Serum Triglycerides Reference Interval Normal <150 mg/dL Borderline high 150 - 199 mg/dL High 200 - 499 mg/dL Very High > or = 500 mg/dL WBC (Bld) [#/Vol] 7.7 10*3/uL 4.4-11.0 [facility] Blood erythrocytes count (nu mber/volume)Ordered By: Alexandra Hagen on 02-21-2023 RBC (Bld) [#/Vol] 4.19 10*6/uL 4.2-5.4 [facility] Blood hemoglobin measurement (mass/volume)Ordered By: Alexandra Hagen on 02-21-2023 Hemoglobin (Bld) [Mass/Vol] 12.5 g/dL 12.0-15.0 [facility] Blood platelet mean volumeOr dered By: Alexandra Hagen on 02-21-2023 Platelet mean volume (Bld) [Entitic vol] 10.8 fL 6.2-12.0 [facility] Determination of erythrocyte mean corpuscular volume (MCV)Ordered By: Alexandra Hagen on 02-21-2023 MCV (RBC) [Entitic vol] 91.2 fL 81-99 [facility] Hematocrit Auto (Bld) [Volum e fraction]Ordered By: Alexandra Hagen on 02-21-2023 Hematocrit (Bld) [Volume fraction] 38.2 % 37-47 [facility] INR in Blood by Coagulation assayOrdered By: Alexandra Hagen on 02-21-2023 INR Coag (Bld) [Relative time] 2.3 {INR} [facility] Laboratory - Chemistry and C hemistry - challengeOrdered By: Alexandra Hagen on 02-21-2023 ALP [Catalytic activity/Vol] 84 U/L 45-117 [facility] ALT [Catalytic activity/Vol] 11 U/L 13-56 [facility] CO2 [Moles/Vol] 27.0 mmol/L 21.0-32.0 [facility] Globulin (S) [Mass/Vol] 3.3 g/dL 2.2-4.2 [facility] Urea nitrogen/Creatinine [Mass ratio] 14.0 mg/mg 10-20 [facility] Laboratory - CoagulationOrde red By: Alexandra Hagne on 02-21-2023 PT Coag (PPP) [Time] 25.3 s 11.7-14.9 [facility] Laboratory - Hematology and Cell countsOrdered By: Alexandra Hagen on 02-21-2023 Erythrocyte distribution width (RBC) [Entitic vol] 44.8 fL 35.1-43.9 [facility] Erythrocyte distribution width (RBC) [Ratio] 13.4 % 11.6-14.6 [facility] MCH (RBC) [Entitic mass] 29.8 pg 27.0-32.0 [facility] MCHC Auto (RBC) [Mass/Vol]Or dered By: Alexandra Hagen on 02-21-2023 MCHC (RBC) [Mass/Vol] 32.7 g/dL 32-36 [facility] No Panel InformationOrdered By: Alexandra Hagen on 02-21-2023 Estimated GFR (MDRD) Amer 68 mL/min >60 [facility] Comment on above: GFR Calc Estimated GFR (MDRD) Non-Af Amer 56 mL/min >60 [facility] Comment on above: Non- GFR Calc Platelets bldOrdered By: Alexandra Hagen on 02-21-2023 Platelets (Bld) [#/Vol] 297 10*3/uL 150-450 [facility] Serum or plasma albumin viktoria urement (mass/volume)Ordered By: Alexandra Hagen on 02-21-2023 Albumin [Mass/Vol] 2.9 g/dL 3.2-5.0 [facility] Serum or plasma albumin/glob ulin mass ratioOrdered By: Alexandra Hagen on 02-21-2023 Albumin/Globulin [Mass ratio] 0.9 {ratio} 0.9-2.4 [facility] Serum or plasma calcium viktoria urement (mass/volume)Ordered By: Aleaxndra Hagen on 02-21-2023 Calcium [Mass/Vol] 8.4 mg/dL 8.5-10.1 [facility] Serum or plasma cholesterol in HDL measurement (mass/volume)Ordered By: Alexandra Hagen on 02-21-2023 Cholesterol in HDL [Mass/Vol] 50 mg/dL >40 [facility] Comment on above: The drugs N-Acetylcy steine and Metamizole may falsely depress this assay. Reference Range HDL <40 mg/dL Low HDL Cholesterol HDL >or= 60 mg/dL High HDL Cholesterol Serum or plasma cholesterol in VLDL measurement (mass/volume)Ordered By: Alexandra Hagen on 02-21-2023 Cholesterol in VLDL [Mass/Vol] 20 mg/dL 5-40 [facility] Serum or plasma creatinine m easurement (mass/volume)Ordered By: Alexandra Hagen on 02-21-2023 Creatinine [Mass/Vol] 1.00 mg/dL 0.55-1.02 [facility] Comment on above: The validity of the calculated GFR & GFRAA in patients over 70 years has not been determined. Clinical correlation is essential. Serum or plasma low density lipoprotein (LDL) cholesterol measurement (mass/volume)Ordered By: Alexandra Hagen on 02-21-2023 Cholesterol in LDL [Mass/Vol] 57 mg/dL 0-130 [facility] Serum or plasma urea nitroge n measurement (mass/volume)Ordered By: Alexandra Hagen on 02-21-2023 Urea nitrogen [Mass/Vol] 14 mg/dL 7-18 [facility] Thin prep Papanicolaou smear with manual screeningOrdered By: Alexandra Hagen on 02-21-2023 Thin prep Papanicolaou smear with manual screening 16 U/L 15-37 [facility] Thin prep Papanicolaou smear with manual screening 4 5-15 [facility] Albumin Elph [Mass/Vol]Order ed By: Anant Juarez on 01-20-2023 Albumin [Mass/Vol] 3.4 g/dL 2.9-4.4 [facility] Basophil percentageOrdered B y: Anant Juarez on 01-20-2023 Basophil percentage Comment . [facility] Comment on above: No monoclonality det ected.Performed at: - [address] [id number] Director: Master Vee PhD, Phone: [phone] Interpretation of serum or p lasma protein pattern by immunofixation (narrative resultOrdered By: Anant Juarez on 01-20-2023 Protein Fractions Immunofixation Manuel [Interp] See comment [facility] Comment on above: Result: Not Observed No Panel InformationOrdered By: Anant Juarez on 01-20-2023 Addendum Document Comment . [facility] Comment on above: Protein electrophore sis scan will follow via computer,mail, or financial professional delivery. Serum [id number] measu rement by electrophoresisOrdered By: Anant Juarez on 01-20-2023 Alpha 1 globulin Elph [Mass/Vol] 0.3 g/dL 0.0-0.4 [facility] Alpha 1 globulin Elph [Mass/Vol] 0.9 g/dL 0.4-1.0 [facility] Serum globulin measurement ( mass/volume)Ordered By: Anant Juarez on 01-20-2023 Globulin (S) [Mass/Vol] 3.0 g/dL 2.2-3.9 [facility] Serum or plasma IgA measurem ent (mass/volume)Ordered By: Anant Juarez on 01-20-2023 IgA [Mass/Vol] 158 mg/dL 64-422 [facility] Serum or plasma IgG measurem ent (mass/volume)Ordered By: Anant Juarez on 01-20-2023 IgG [Mass/Vol] 847 mg/dL 586-1602 [facility] Serum or plasma IgM measurem ent (mass/volume)Ordered By: Anant Juarez on 01-20-2023 IgM [Mass/Vol] 48 mg/dL 26-217 [facility] Serum or plasma beta globuli n measurement by electrophoresis (mass/volume)Ordered By: Anant Juarez on 01-20-2023 Beta globulin Elph [Mass/Vol] 1.0 g/dL 0.7-1.3 [facility] Serum or plasma gamma globul in measurement by electrophoresis (mass/volume)Ordered By: Anant Juarez on 01-20-2023 Gamma globulin Elph [Mass/Vol] 0.7 g/dL 0.4-1.8 [facility] Serum or plasma immunoelectr ophoresis interpretation (nominal result)Ordered By: Anant Juarez on 01-20-2023 Interpretation IEP [Interp] Comment . [facility] Comment on above: No monoclonality det ected. Thin prep Papanicolaou smear with manual screeningOrdered By: Anant Juarez on 01-20-2023 Thin prep Papanicolaou smear with manual screening 1.2 0.7-1.7 [facility] Total protein bloodOrdered B y: Anant Juarez on 01-20-2023 Protein [Mass/Vol] 6.4 g/dL 6.0-8.5 [facility] Laboratory - CoagulationOrde red By: Alexandra Hagen on 01-16-2023 INR Coag (Bld) [Relative time] 2.2 {INR} [facility] Comment on above: Critical Value > 4.0 Whole blood prothrombin time Ordered By: Alexandra Hagen on 01-16-2023 PT Coag (Bld) [Time] 24.2 s 11.7-14.9 [facility] Absolute lymphocyte countOrd ered By: Lynn Horn on 12-28-2022 Lymphocytes Auto (Unsp spec) [#/Vol] 1.57 10*3/uL 0.83-4.51 [facility] Basophil percentageOrdered B y: Lynn Horn on 12-28-2022 Basophils/100 WBC (Bld) 0.6 % 0-1 [facility] Chloride [Moles/Vol] 108 mmol/L 98-107 [facility] Eosinophils/100 WBC (Bld) 3.0 % 0-5 [facility] Glucose [Mass/Vol] 117 mg/dL 74-106 [facility] Comment on above: Fasting Glucose resu lt from 100 to 125 mg/dL suggests IMPAIRED HOMEOSTASIS per A.D.A. criteria. Neutrophils (Bld) [#/Vol] 5.3 10*3/uL 2.0-7.7 [facility] Neutrophils/100 WBC (Bld) 66.8 % 47-70 [facility] Potassium [Moles/Vol] 3.9 mmol/L 3.5-5.1 [facility] Sodium [Moles/Vol] 138 mmol/L 136-145 [facility] WBC (Bld) [#/Vol] 7.9 10*3/uL 4.4-11.0 [facility] Blood erythrocytes count (nu mber/volume)Ordered By: Lynn Horn on 12-28-2022 RBC (Bld) [#/Vol] 4.32 10*6/uL 4.2-5.4 [facility] Blood hemoglobin measurement (mass/volume)Ordered By: Lynn Horn on 12-28-2022 Hemoglobin (Bld) [Mass/Vol] 12.8 g/dL 12.0-15.0 [facility] Blood lymphocytes/100 leukoc ytesOrdered By: Lynn Horn on 12-28-2022 Lymphocytes/100 WBC (Bld) 19.8 % 19-41 [facility] Blood monocytes/100 leukocyt esOrdered By: Lynn Horn on 12-28-2022 Monocytes/100 WBC (Bld) 9.5 % 0-10 [facility] Blood platelet mean volumeOr dered By: Lynn Horn on 12-28-2022 Platelet mean volume (Bld) [Entitic vol] 10.6 fL 6.2-12.0 [facility] Determination of erythrocyte mean corpuscular volume (MCV)Ordered By: Lynn Horn on 12-28-2022 MCV (RBC) [Entitic vol] 91.0 fL 81-99 [facility] Hematocrit Auto (Bld) [Volum e fraction]Ordered By: Lynn Horn on 12-28-2022 Hematocrit (Bld) [Volume fraction] 39.3 % 37-47 [facility] INR in Blood by Coagulation assayOrdered By: Lynn Horn on 12-28-2022 INR Coag (Bld) [Relative time] 2.1 {INR} [facility] Laboratory - Chemistry and C hemistry - challengeOrdered By: Lynn Horn on 12-28-2022 CO2 [Moles/Vol] 27.0 mmol/L 21.0-32.0 [facility] Urea nitrogen/Creatinine [Mass ratio] 15.7 mg/mg 10-20 [facility] Laboratory - CoagulationOrde red By: Lynn Horn on 12-28-2022 PT Coag (PPP) [Time] 23.8 s 11.7-14.9 [facility] Laboratory - Hematology and Cell countsOrdered By: Lynn Horn on 12-28-2022 Erythrocyte distribution width (RBC) [Entitic vol] 43.0 fL 35.1-43.9 [facility] Erythrocyte distribution width (RBC) [Ratio] 12.9 % 11.6-14.6 [facility] Immature granulocytes/100 WBC (Bld) 0.300 % 0.0-0.9 [facility] Comment on above: IG% - Immature Granu locytes (promyelocytes, myelocytes and metamyelocytes) > 1% indicates that a LEFT SHIFT is Present. MCH (RBC) [Entitic mass] 29.6 pg 27.0-32.0 [facility] Nucleated RBC/100 WBC (Bld) [Ratio] 0 % 0-5 [facility] MCHC Auto (RBC) [Mass/Vol]Or dered By: Lynn Horn on 12-28-2022 MCHC (RBC) [Mass/Vol] 32.6 g/dL 32-36 [facility] No Panel InformationOrdered By: Lynn Horn on 12-28-2022 Estimated Creatinine Clearance Calc 36.84 ml/min [facility] Estimated GFR (MDRD) Amer 77 mL/min >60 [facility] Comment on above: GFR Calc Estimated GFR (MDRD) Non-Af Amer 64 mL/min >60 [facility] Comment on above: Non- GFR Calc Platelets bldOrdered By: Lois Horn on 12-28-2022 Platelets (Bld) [#/Vol] 272 10*3/uL 150-450 [facility] Serum or plasma calcium viktoria urement (mass/volume)Ordered By: Lynn Horn on 12-28-2022 Calcium [Mass/Vol] 8.3 mg/dL 8.5-10.1 [facility] Serum or plasma creatinine m easurement (mass/volume)Ordered By: Lynn Horn on 12-28-2022 Creatinine [Mass/Vol] 0.89 mg/dL 0.55-1.02 [facility] Comment on above: The validity of the calculated GFR & GFRAA in patients over 70 years has not been determined. Clinical correlation is essential. Serum or plasma urea nitroge n measurement (mass/volume)Ordered By: Lynn Horn on 12-28-2022 Urea nitrogen [Mass/Vol] 14 mg/dL 7-18 [facility] Thin prep Papanicolaou smear with manual screeningOrdered By: Lynn Horn on 12-28-2022 Thin prep Papanicolaou smear with manual screening 3 5-15 [facility] Laboratory - CoagulationOrde red By: Lali Pimentel on 12-27-2022 aPTT Coag (Bld) [Time] 48.2 s 24.1-36.2 [facility] No Panel InformationOrdered By: Lali Pimentel on 12-27-2022 Troponin I High Sensitivity 10 pg/mL 3.0-54.0 [facility] Comment on above: Please Note: New Evon t Units and Gender Specific Reference Ranges. For more information see Policy Stat Procedure [place] High Sensitivity Troponin (TNIH) and attachments. Laboratory - CoagulationOrde red By: Alexandra Hagen on 12-19-2022 INR Coag (Bld) [Relative time] 2.8 {INR} [facility] Comment on above: Critical Value > 4.0 Whole blood prothrombin time Ordered By: Alexandra Hagen on 12-19-2022 PT Coag (Bld) [Time] 29.7 s 11.7-14.9 [facility] Absolute lymphocyte countOrd ered By: Alexandra Hagen on 12-09-2022 Lymphocytes Auto (Unsp spec) [#/Vol] 1.65 10*3/uL 0.83-4.51 [facility] Basophil percentageOrdered B y: Alexandra Hagen on 12-09-2022 Basophils/100 WBC (Bld) 0.4 % 0-1 [facility] Chloride [Moles/Vol] 107 mmol/L 98-107 [facility] Eosinophils/100 WBC (Bld) 3.6 % 0-5 [facility] Glucose [Mass/Vol] 125 mg/dL 74-106 [facility] Comment on above: Fasting Glucose resu lt from 100 to 125 mg/dL suggests IMPAIRED HOMEOSTASIS per A.D.A. criteria. Neutrophils (Bld) [#/Vol] 4.3 10*3/uL 2.0-7.7 [facility] Neutrophils/100 WBC (Bld) 61.6 % 47-70 [facility] Potassium [Moles/Vol] 4.8 mmol/L 3.5-5.1 [facility] Sodium [Moles/Vol] 138 mmol/L 136-145 [facility] WBC (Bld) [#/Vol] 7.0 10*3/uL 4.4-11.0 [facility] Blood erythrocytes count (nu mber/volume)Ordered By: Alexandra Hagen on 12-09-2022 RBC (Bld) [#/Vol] 4.30 10*6/uL 4.2-5.4 [facility] Blood hemoglobin measurement (mass/volume)Ordered By: Alexandra Hagen on 12-09-2022 Hemoglobin (Bld) [Mass/Vol] 13.1 g/dL 12.0-15.0 [facility] Blood lymphocytes/100 leukoc ytesOrdered By: Alexandra Hagen on 12-09-2022 Lymphocytes/100 WBC (Bld) 23.7 % 19-41 [facility] Blood monocytes/100 leukocyt esOrdered By: Alexandra Hagen on 12-09-2022 Monocytes/100 WBC (Bld) 10.4 % 0-10 [facility] Blood platelet mean volumeOr dered By: Alexandra Hagen on 12-09-2022 Platelet mean volume (Bld) [Entitic vol] 10.7 fL 6.2-12.0 [facility] Determination of erythrocyte mean corpuscular volume (MCV)Ordered By: Alexandra Hagen on 12-09-2022 MCV (RBC) [Entitic vol] 92.3 fL 81-99 [facility] Hematocrit Auto (Bld) [Volum e fraction]Ordered By: Alexandra Hagen on 12-09-2022 Hematocrit (Bld) [Volume fraction] 39.7 % 37-47 [facility] - Chemistry and C hemistry - challengeOrdered By: Alexandra Hagen on 12-09-2022 CO2 [Moles/Vol] 26.0 mmol/L 21.0-32.0 [facility] Urea nitrogen/Creatinine [Mass ratio] 14.4 mg/mg 10-20 [facility] - Hematology and Cell countsOrdered By: Alexandra Hagen on 12-09-2022 Erythrocyte distribution width (RBC) [Entitic vol] 44.0 fL 35.1-43.9 [facility] Erythrocyte distribution width (RBC) [Ratio] 13.1 % 11.6-14.6 [facility] Immature granulocytes/100 WBC (Bld) 0.300 % 0.0-0.9 [facility] Comment on above: IG% - Immature Granu locytes (promyelocytes, myelocytes and metamyelocytes) > 1% indicates that a LEFT SHIFT is Present. MCH (RBC) [Entitic mass] 30.5 pg 27.0-32.0 [facility] Nucleated RBC/100 WBC (Bld) [Ratio] 0 % 0-5 [facility] MCHC Auto (RBC) [Mass/Vol]Or dered By: Alexandra Hagen on 12-09-2022 MCHC (RBC) [Mass/Vol] 33.0 g/dL 32-36 [facility] No Panel InformationOrdered By: Alexandra Hagen on 12-09-2022 Estimated GFR (MDRD) Amer 60 mL/min >60 [facility] Comment on above: GFR Calc Estimated GFR (MDRD) Non-Af Amer 49 mL/min >60 [facility] Comment on above: Non- GFR Calc Platelets bldOrdered By: Alexandra Hagen on 12-09-2022 Platelets (Bld) [#/Vol] 293 10*3/uL 150-450 [facility] Serum or plasma calcium viktoria urement (mass/volume)Ordered By: Alexandra Hagen on 12-09-2022 Calcium [Mass/Vol] 8.7 mg/dL 8.5-10.1 [facility] Serum or plasma creatinine m easurement (mass/volume)Ordered By: Alexandra Hagen on 12-09-2022 Creatinine [Mass/Vol] 1.11 mg/dL 0.55-1.02 [facility] Comment on above: The validity of the calculated GFR & GFRAA in patients over 70 years has not been determined. Clinical correlation is essential. Serum or plasma urea nitroge n measurement (mass/volume)Ordered By: Alexandra Hagen on 12-09-2022 Urea nitrogen [Mass/Vol] 16 mg/dL 7-18 [facility] Thin prep Papanicolaou smear with manual screeningOrdered By: Alexandra Hagen on 12-09-2022 Thin prep Papanicolaou smear with manual screening 5 5-15 [facility] Whole blood hemoglobin A1c/t otal hemoglobin ratio (mass fraction)Ordered By: Alexandra Hagen on 12-09-2022 HbA1c (Bld) [Mass fraction] 6.7 % 3.8-5.6 [facility] Comment on above: Normal < 5.7 % Predi abetic 5.7 - 6.4 % Diabetic >or= 6.5 % Please note range changes. Basophil percentageOrdered B y: Alexandra Hagen on 11-20-2022 Bilirubin [Mass/Vol] 0.50 mg/dL 0.20-1.00 [facility] Comment on above: For patients on eltr ombopag therapy, use of Dimension [place] TBIL is not recommended. Chloride [Moles/Vol] 105 mmol/L 98-107 [facility] Cholesterol [Mass/Vol] 167 mg/dL <200 [facility] Comment on above: <200 mg/dL Desirable 200-240 mg/dL Borderline >240 mg/dL High Risk Glucose [Mass/Vol] 153 mg/dL 74-106 [facility] Comment on above: Fasting Glucose resu lt greater than or equal to 126 mg/dL suggests DIABETES MELLITUS per A.D.A. criteria. Potassium [Moles/Vol] 4.2 mmol/L 3.5-5.1 [facility] Protein [Mass/Vol] 6.7 g/dL 6.4-8.2 [facility] Sodium [Moles/Vol] 138 mmol/L 136-145 [facility] Triglyceride [Mass/Vol] 120 mg/dL <199 [facility] Comment on above: The drugs N-Acetylcy steine and Metamizole may falsely depress this assay.Serum Triglycerides Reference Interval Normal <150 mg/dL Borderline high 150 - 199 mg/dL High 200 - 499 mg/dL Very High > or = 500 mg/dL WBC (Bld) [#/Vol] 7.4 10*3/uL 4.4-11.0 [facility] Blood erythrocytes count (nu mber/volume)Ordered By: Alexandra Hagen on 11-20-2022 RBC (Bld) [#/Vol] 4.37 10*6/uL 4.2-5.4 [facility] Blood hemoglobin measurement (mass/volume)Ordered By: Alexandra Hagen on 11-20-2022 Hemoglobin (Bld) [Mass/Vol] 13.1 g/dL 12.0-15.0 [facility] Blood platelet mean volumeOr dered By: Alexandra Hagen on 11-20-2022 Platelet mean volume (Bld) [Entitic vol] 10.8 fL 6.2-12.0 [facility] Determination of erythrocyte mean corpuscular volume (MCV)Ordered By: Alexandra Hagen on 11-20-2022 MCV (RBC) [Entitic vol] 91.5 fL 81-99 [facility] Hematocrit Auto (Bld) [Volum e fraction]Ordered By: Alexandra Hagen on 11-20-2022 Hematocrit (Bld) [Volume fraction] 40.0 % 37-47 [facility] INR in Blood by Coagulation assayOrdered By: Alexandra Hagen on 11-20-2022 INR Coag (Bld) [Relative time] 2.0 {INR} [facility] - Chemistry and C hemistry - challengeOrdered By: Alexandra Hagen on 11-20-2022 ALP [Catalytic activity/Vol] 72 U/L 45-117 [facility] ALT [Catalytic activity/Vol] 13 U/L 13-56 [facility] CO2 [Moles/Vol] 30.0 mmol/L 21.0-32.0 [facility] Globulin (S) [Mass/Vol] 3.6 g/dL 2.2-4.2 [facility] Urea nitrogen/Creatinine [Mass ratio] 12.8 mg/mg 10-20 [facility] - CoagulationOrde red By: Alexandra Hagen on 11-20-2022 PT Coag (PPP) [Time] 22.6 s 11.7-14.9 [facility] - Hematology and Cell countsOrdered By: Alexandra Hagen on 11-20-2022 Erythrocyte distribution width (RBC) [Entitic vol] 43.4 fL 35.1-43.9 [facility] Erythrocyte distribution width (RBC) [Ratio] 12.9 % 11.6-14.6 [facility] MCH (RBC) [Entitic mass] 30.0 pg 27.0-32.0 [facility] MCHC Auto (RBC) [Mass/Vol]Or dered By: Alexandra Hagen on 11-20-2022 MCHC (RBC) [Mass/Vol] 32.8 g/dL 32-36 [facility] No Panel InformationOrdered By: Alexandra Hagen on 11-20-2022 Estimated GFR (MDRD) Amer 61 mL/min >60 [facility] Comment on above: GFR Calc Estimated GFR (MDRD) Non-Af Amer 50 mL/min >60 [facility] Comment on above: Non- GFR Calc Platelets bldOrdered By: Alexandra Hagen on 11-20-2022 Platelets (Bld) [#/Vol] 310 10*3/uL 150-450 [facility] Serum or plasma albumin viktoria urement (mass/volume)Ordered By: Alexandra Hagen on 11-20-2022 Albumin [Mass/Vol] 3.1 g/dL 3.2-5.0 [facility] Serum or plasma albumin/glob ulin mass ratioOrdered By: Alexandra Hagen on 11-20-2022 Albumin/Globulin [Mass ratio] 0.9 {ratio} 0.9-2.4 [facility] Serum or plasma calcium viktoria urement (mass/volume)Ordered By: Alexandra Hagen on 11-20-2022 Calcium [Mass/Vol] 8.6 mg/dL 8.5-10.1 [facility] Serum or plasma cholesterol in HDL measurement (mass/volume)Ordered By: Alexandra Hagen on 11-20-2022 Cholesterol in HDL [Mass/Vol] 55 mg/dL >40 [facility] Comment on above: The drugs N-Acetylcy steine and Metamizole may falsely depress this assay. Reference Range HDL <40 mg/dL Low HDL Cholesterol HDL >or= 60 mg/dL High HDL Cholesterol Serum or plasma cholesterol in VLDL measurement (mass/volume)Ordered By: Alexandra Hagen on 11-20-2022 Cholesterol in VLDL [Mass/Vol] 24 mg/dL 5-40 [facility] Serum or plasma creatinine m easurement (mass/volume)Ordered By: Alexandra Hagen on 11-20-2022 Creatinine [Mass/Vol] 1.09 mg/dL 0.55-1.02 [facility] Comment on above: The validity of the calculated GFR & GFRAA in patients over 70 years has not been determined. Clinical correlation is essential. Serum or plasma low density lipoprotein (LDL) cholesterol measurement (mass/volume)Ordered By: Alexandra Hagen on 11-20-2022 Cholesterol in LDL [Mass/Vol] 88 mg/dL 0-130 [facility] Serum or plasma urea nitroge n measurement (mass/volume)Ordered By: Alexandra Hagen on 11-20-2022 Urea nitrogen [Mass/Vol] 14 mg/dL 7-18 [facility] Thin prep Papanicolaou smear with manual screeningOrdered By: Alexandra Hagen on 11-20-2022 Thin prep Papanicolaou smear with manual screening 15 U/L 15-37 [facility] Thin prep Papanicolaou smear with manual screening 3 5-15 [facility] Absolute lymphocyte countOrd ered By: Mo Corea on 11-18-2022 Lymphocytes Auto (Unsp spec) [#/Vol] 1.95 10*3/uL 0.83-4.51 [facility] Basophil percentageOrdered B y: Mo Corea on 11-18-2022 Basophil percentage 0-5 SEEN /hpf 0-5 [facility] Basophils/100 WBC (Bld) 0.4 % 0-1 [facility] Bilirubin [Mass/Vol] 0.40 mg/dL 0.20-1.00 [facility] Comment on above: For patients on eltr ombopag therapy, use of Dimension [place] TBIL is not recommended. Chloride [Moles/Vol] 108 mmol/L 98-107 [facility] Eosinophils/100 WBC (Bld) 3.4 % 0-5 [facility] Glucose [Mass/Vol] 126 mg/dL 74-106 [facility] Comment on above: Fasting Glucose resu lt greater than or equal to 126 mg/dL suggests DIABETES MELLITUS per A.D.A. criteria. Neutrophils (Bld) [#/Vol] 4.4 10*3/uL 2.0-7.7 [facility] Neutrophils/100 WBC (Bld) 59.9 % 47-70 [facility] Potassium [Moles/Vol] 3.9 mmol/L 3.5-5.1 [facility] Protein [Mass/Vol] 6.9 g/dL 6.4-8.2 [facility] Sodium [Moles/Vol] 140 mmol/L 136-145 [facility] WBC (Bld) [#/Vol] 7.3 10*3/uL 4.4-11.0 [facility] Bilirubin Test strip Ql (U)O rdered By: Mo Corea on 11-18-2022 Bilirubin Ql (U) Negative Negative [facility] Blood erythrocytes count (nu mber/volume)Ordered By: Mo Corea on 11-18-2022 RBC (Bld) [#/Vol] 4.63 10*6/uL 4.2-5.4 [facility] Blood hemoglobin measurement (mass/volume)Ordered By: Mo Corea on 11-18-2022 Hemoglobin (Bld) [Mass/Vol] 13.9 g/dL 12.0-15.0 [facility] Blood lymphocytes/100 leukoc ytesOrdered By: Mo Corea on 11-18-2022 Lymphocytes/100 WBC (Bld) 26.8 % 19-41 [facility] Blood monocytes/100 leukocyt esOrdered By: Mo Corea on 11-18-2022 Monocytes/100 WBC (Bld) 9.2 % 0-10 [facility] Blood platelet mean volumeOr dered By: Mo Corea on 11-18-2022 Platelet mean volume (Bld) [Entitic vol] 10.5 fL 6.2-12.0 [facility] Determination of erythrocyte mean corpuscular volume (MCV)Ordered By: Mo Corea on 11-18-2022 MCV (RBC) [Entitic vol] 92.4 fL 81-99 [facility] Hematocrit Auto (Bld) [Volum e fraction]Ordered By: Mo Corea on 11-18-2022 Hematocrit (Bld) [Volume fraction] 42.8 % 37-47 [facility] INR in Blood by Coagulation assayOrdered By: Mo Corea on 11-18-2022 INR Coag (Bld) [Relative time] 2.0 {INR} [facility] Ketones Test strip Ql (U)Ord ered By: Mo oCrea on 11-18-2022 Ketones Ql (U) Negative Negative [facility] - Chemistry and C hemistry - challengeOrdered By: Mo Corea on 11-18-2022 ALP [Catalytic activity/Vol] 76 U/L 45-117 [facility] ALT [Catalytic activity/Vol] 13 U/L 13-56 [facility] CO2 [Moles/Vol] 30.0 mmol/L 21.0-32.0 [facility] Globulin (S) [Mass/Vol] 3.6 g/dL 2.2-4.2 [facility] Urea nitrogen/Creatinine [Mass ratio] 13.6 mg/mg 10-20 [facility] - CoagulationOrde red By: Mo Corea on 11-18-2022 aPTT Coag (Bld) [Time] 48.1 s 24.1-36.2 [facility] PT Coag (PPP) [Time] 22.7 s 11.7-14.9 [facility] - Hematology and Cell countsOrdered By: Mo Corea on 11-18-2022 Erythrocyte distribution width (RBC) [Entitic vol] 44.2 fL 35.1-43.9 [facility] Erythrocyte distribution width (RBC) [Ratio] 13.1 % 11.6-14.6 [facility] Immature granulocytes/100 WBC (Bld) 0.300 % 0.0-0.9 [facility] Comment on above: IG% - Immature Granu locytes (promyelocytes, myelocytes and metamyelocytes) > 1% indicates that a LEFT SHIFT is Present. MCH (RBC) [Entitic mass] 30.0 pg 27.0-32.0 [facility] Nucleated RBC/100 WBC (Bld) [Ratio] 0 % 0-5 [facility] MCHC Auto (RBC) [Mass/Vol]Or dered By: Mo Corea on 11-18-2022 MCHC (RBC) [Mass/Vol] 32.5 g/dL 32-36 [facility] Mucus LM Ql (Urine sed)Order ed By: Mo Corea on 11-18-2022 Mucus Ql (Urine sed) 0 SEEN /hpf [facility] Nitrite Test strip Ql (U)Ord ered By: Mo Corea on 11-18-2022 Nitrite Ql (U) Negative Negative [facility] No Panel InformationOrdered By: Mo Corea on 11-18-2022 Estimated Creatinine Clearance Calc 31.83 ml/min [facility] Estimated GFR (MDRD) Amer 65 mL/min >60 [facility] Comment on above: GFR Calc Estimated GFR (MDRD) Non-Af Amer 54 mL/min >60 [facility] Comment on above: Non- GFR Calc Platelets bldOrdered By: Rebecca Corea on 11-18-2022 Platelets (Bld) [#/Vol] 289 10*3/uL 150-450 [facility] Protein Test strip Ql (U)Ord ered By: Mo Corea on 11-18-2022 Protein Ql (U) 15 mg/dl Negative [facility] Serum or plasma albumin viktoria urement (mass/volume)Ordered By: Mo Corea on 11-18-2022 Albumin [Mass/Vol] 3.3 g/dL 3.2-5.0 [facility] Serum or plasma albumin/glob ulin mass ratioOrdered By: Mo Corea on 11-18-2022 Albumin/Globulin [Mass ratio] 0.9 {ratio} 0.9-2.4 [facility] Serum or plasma calcium viktoria urement (mass/volume)Ordered By: Mo Corea on 11-18-2022 Calcium [Mass/Vol] 8.7 mg/dL 8.5-10.1 [facility] Serum or plasma creatinine m easurement (mass/volume)Ordered By: Mo Corea on 11-18-2022 Creatinine [Mass/Vol] 1.03 mg/dL 0.55-1.02 [facility] Comment on above: The validity of the calculated GFR & GFRAA in patients over 70 years has not been determined. Clinical correlation is essential. Serum or plasma urea nitroge n measurement (mass/volume)Ordered By: Mo Corea on 11-18-2022 Urea nitrogen [Mass/Vol] 14 mg/dL 7-18 [facility] Squamous epithelial cells de tection in urine sediment by light microscopyOrdered By: Mo Corea on 11-18-2022 Epithelial cells.squamous LM Ql (Urine sed) 0-5 SEEN /hpf 5-10 [facility] Thin prep Papanicolaou smear with manual screeningOrdered By: Mo Corea on 11-18-2022 Thin prep Papanicolaou smear with manual screening 15 U/L 15-37 [facility] Thin prep Papanicolaou smear with manual screening 2 5-15 [facility] Urine blood detectionOrdered By: Mo Corea on 11-18-2022 RBC Ql (U) Negative Negative [facility] RBC Ql (U) 0 SEEN /hpf 0-5 [facility] Urine clarityOrdered By: Rebecca Corea on 11-18-2022 Clarity (U) Sl. Cloudy Clear [facility] Urine color determinationOrd ered By: Mo Corea on 11-18-2022 Color (U) Yellow Yellow [facility] Urine glucose detectionOrder ed By: Mo Corea on 11-18-2022 Glucose Ql (U) Normal mg/dl Normal [facility] Urine leukocyte esterase det ection by dipstickOrdered By: Mo Corea on 11-18-2022 Leukocyte esterase Test strip Ql (U) 25 /ul Negative [facility] Urine pHOrdered By: Mo amado on 11-18-2022 pH (U) 7.0 [pH] 5.0 - 8.0 [facility] Urine sediment bacteria coun t by microscopy (number/high power field)Ordered By: Mo Corea on 11-18-2022 Bacteria LM.HPF (Urine sed) [#/Area] 0 /[HPF] None Seen [facility] Urine specific gravity measu rementOrdered By: Mo Corea on 11-18-2022 Specific gravity (U) [Rel density] 1.010 1.002-1.030 [facility] Urobilinogen Auto test strip Ql (U)Ordered By: Mo Corea on 11-18-2022 Urobilinogen Ql (U) Normal mg/dl Normal [facility] Absolute lymphocyte countOrd ered By: Sae Carballo on 11-15-2022 Lymphocytes Auto (Unsp spec) [#/Vol] 2.03 10*3/uL 0.83-4.51 [facility] Basophil percentageOrdered B y: Sae Carballo on 11-15-2022 Basophils/100 WBC (Bld) 0.5 % 0-1 [facility] Chloride [Moles/Vol] 107 mmol/L 98-107 [facility] Cholesterol [Mass/Vol] 164 mg/dL <200 [facility] Comment on above: <200 mg/dL Desirable 200-240 mg/dL Borderline >240 mg/dL High Risk Eosinophils/100 WBC (Bld) 3.5 % 0-5 [facility] Glucose [Mass/Vol] 124 mg/dL 74-106 [facility] Comment on above: Fasting Glucose resu lt from 100 to 125 mg/dL suggests IMPAIRED HOMEOSTASIS per A.D.A. criteria. Neutrophils (Bld) [#/Vol] 4.7 10*3/uL 2.0-7.7 [facility] Neutrophils/100 WBC (Bld) 60.3 % 47-70 [facility] Potassium [Moles/Vol] 4.1 mmol/L 3.5-5.1 [facility] Sodium [Moles/Vol] 139 mmol/L 136-145 [facility] Triglyceride [Mass/Vol] 133 mg/dL <199 [facility] Comment on above: The drugs N-Acetylcy steine and Metamizole may falsely depress this assay.Serum Triglycerides Reference Interval Normal <150 mg/dL Borderline high 150 - 199 mg/dL High 200 - 499 mg/dL Very High > or = 500 mg/dL WBC (Bld) [#/Vol] 7.8 10*3/uL 4.4-11.0 [facility] Blood erythrocytes count (nu mber/volume)Ordered By: Sae Carballo on 11-15-2022 RBC (Bld) [#/Vol] 4.32 10*6/uL 4.2-5.4 [facility] Blood hemoglobin measurement (mass/volume)Ordered By: Sae Carballo on 11-15-2022 Hemoglobin (Bld) [Mass/Vol] 12.9 g/dL 12.0-15.0 [facility] Blood lymphocytes/100 leukoc ytesOrdered By: Sae Carballo on 11-15-2022 Lymphocytes/100 WBC (Bld) 26.2 % 19-41 [facility] Blood monocytes/100 leukocyt esOrdered By: Sae Carballo on 11-15-2022 Monocytes/100 WBC (Bld) 9.4 % 0-10 [facility] Blood platelet mean volumeOr dered By: Sae Carballo on 11-15-2022 Platelet mean volume (Bld) [Entitic vol] 10.6 fL 6.2-12.0 [facility] Determination of erythrocyte mean corpuscular volume (MCV)Ordered By: Sae Carballo on 11-15-2022 MCV (RBC) [Entitic vol] 91.7 fL 81-99 [facility] Hematocrit Auto (Bld) [Volum e fraction]Ordered By: Sae Carballo on 11-15-2022 Hematocrit (Bld) [Volume fraction] 39.6 % 37-47 [facility] INR in Blood by Coagulation assayOrdered By: Sae Carballo on 11-15-2022 INR Coag (Bld) [Relative time] 2.0 {INR} [facility] - Chemistry and C hemistry - challengeOrdered By: Sae Carballo on 11-15-2022 CO2 [Moles/Vol] 25.0 mmol/L 21.0-32.0 [facility] Urea nitrogen/Creatinine [Mass ratio] 15.8 mg/mg 10-20 [facility] - CoagulationOrde red By: Sae Carballo on 11-15-2022 PT Coag (PPP) [Time] 23.0 s 11.7-14.9 [facility] - Hematology and Cell countsOrdered By: Sae Carballo on 11-15-2022 Erythrocyte distribution width (RBC) [Entitic vol] 43.4 fL 35.1-43.9 [facility] Erythrocyte distribution width (RBC) [Ratio] 12.9 % 11.6-14.6 [facility] Immature granulocytes/100 WBC (Bld) 0.100 % 0.0-0.9 [facility] Comment on above: IG% - Immature Granu locytes (promyelocytes, myelocytes and metamyelocytes) > 1% indicates that a LEFT SHIFT is Present. MCH (RBC) [Entitic mass] 29.9 pg 27.0-32.0 [facility] Nucleated RBC/100 WBC (Bld) [Ratio] 0 % 0-5 [facility] MCHC Auto (RBC) [Mass/Vol]Or dered By: Sae Carballo on 11-15-2022 MCHC (RBC) [Mass/Vol] 32.6 g/dL 32-36 [facility] No Panel InformationOrdered By: Sae Carballo on 11-15-2022 Estimated Creatinine Clearance Calc 37.26 ml/min [facility] Estimated GFR (MDRD) Amer 78 mL/min >60 [facility] Comment on above: GFR Calc Estimated GFR (MDRD) Non-Af Amer 64 mL/min >60 [facility] Comment on above: Non- GFR Calc Platelets bldOrdered By: Ramos Carballo on 11-15-2022 Platelets (Bld) [#/Vol] 278 10*3/uL 150-450 [facility] Serum or plasma calcium viktoria urement (mass/volume)Ordered By: Sae Carballo on 11-15-2022 Calcium [Mass/Vol] 8.5 mg/dL 8.5-10.1 [facility] Serum or plasma cholesterol in HDL measurement (mass/volume)Ordered By: Sae Carballo on 11-15-2022 Cholesterol in HDL [Mass/Vol] 49 mg/dL >40 [facility] Comment on above: The drugs N-Acetylcy steine and Metamizole may falsely depress this assay. Reference Range HDL <40 mg/dL Low HDL Cholesterol HDL >or= 60 mg/dL High HDL Cholesterol Serum or plasma cholesterol in VLDL measurement (mass/volume)Ordered By: Sae Carballo on 11-15-2022 Cholesterol in VLDL [Mass/Vol] 27 mg/dL 5-40 [facility] Serum or plasma creatinine m easurement (mass/volume)Ordered By: Sae Carballo on 11-15-2022 Creatinine [Mass/Vol] 0.88 mg/dL 0.55-1.02 [facility] Comment on above: The validity of the calculated GFR & GFRAA in patients over 70 years has not been determined. Clinical correlation is essential. Serum or plasma low density lipoprotein (LDL) cholesterol measurement (mass/volume)Ordered By: Sae Carballo on 11-15-2022 Cholesterol in LDL [Mass/Vol] 88 mg/dL 0-130 [facility] Serum or plasma urea nitroge n measurement (mass/volume)Ordered By: Sae Carballo on 11-15-2022 Urea nitrogen [Mass/Vol] 14 mg/dL 7-18 [facility] Thin prep Papanicolaou smear with manual screeningOrdered By: Sae Carballo on 11-15-2022 Thin prep Papanicolaou smear with manual screening 7 5-15 [facility] Absolute lymphocyte countOrd ered By: Neri Mitchell on 11-14-2022 Lymphocytes Auto (Unsp spec) [#/Vol] 2.35 10*3/uL 0.83-4.51 [facility] Basophil percentageOrdered B y: Neri Mitchell on 11-14-2022 Basophils/100 WBC (Bld) 0.6 % 0-1 [facility] Chloride [Moles/Vol] 104 mmol/L 98-107 [facility] Eosinophils/100 WBC (Bld) 2.4 % 0-5 [facility] Glucose [Mass/Vol] 135 mg/dL 74-106 [facility] Comment on above: Fasting Glucose resu lt greater than or equal to 126 mg/dL suggests DIABETES MELLITUS per A.D.A. criteria. Neutrophils (Bld) [#/Vol] 6.0 10*3/uL 2.0-7.7 [facility] Neutrophils/100 WBC (Bld) 64.0 % 47-70 [facility] Potassium [Moles/Vol] 4.0 mmol/L 3.5-5.1 [facility] Sodium [Moles/Vol] 138 mmol/L 136-145 [facility] WBC (Bld) [#/Vol] 9.4 10*3/uL 4.4-11.0 [facility] Blood erythrocytes count (nu mber/volume)Ordered By: Neri Mitchell on 11-14-2022 RBC (Bld) [#/Vol] 4.79 10*6/uL 4.2-5.4 [facility] Blood hemoglobin measurement (mass/volume)Ordered By: Neri Mitchell on 11-14-2022 Hemoglobin (Bld) [Mass/Vol] 14.3 g/dL 12.0-15.0 [facility] Blood lymphocytes/100 leukoc ytesOrdered By: Neri Mitchell on 11-14-2022 Lymphocytes/100 WBC (Bld) 24.9 % 19-41 [facility] Blood monocytes/100 leukocyt esOrdered By: Neri Mitchell on 11-14-2022 Monocytes/100 WBC (Bld) 7.8 % 0-10 [facility] Blood platelet mean volumeOr dered By: Neri Mitchell on 11-14-2022 Platelet mean volume (Bld) [Entitic vol] 10.6 fL 6.2-12.0 [facility] Determination of erythrocyte mean corpuscular volume (MCV)Ordered By: Neri Mitchell on 11-14-2022 MCV (RBC) [Entitic vol] 93.5 fL 81-99 [facility] Glucose Glucometer (BldC) [M ass/Vol]Ordered By: Neri Mitchell on 11-14-2022 Glucose [Mass/Vol] 136 mg/dL 74-106 [facility] Comment on above: MANAGEMENT OF PATIEN T CARE PER NURSING PROTOCOL Hematocrit Auto (Bld) [Volum e fraction]Ordered By: Neri Mitchell on 11-14-2022 Hematocrit (Bld) [Volume fraction] 44.8 % 37-47 [facility] INR in Blood by Coagulation assayOrdered By: Neri Mitchell on 11-14-2022 INR Coag (Bld) [Relative time] 1.8 {INR} [facility] Laboratory - Chemistry and C hemistry - challengeOrdered By: Neri Mitchell on 11-14-2022 CO2 [Moles/Vol] 28.0 mmol/L 21.0-32.0 [facility] Urea nitrogen/Creatinine [Mass ratio] 12.3 mg/mg 10-20 [facility] Laboratory - CoagulationOrde red By: Neri Mitchell on 11-14-2022 aPTT Coag (Bld) [Time] 43.3 s 24.1-36.2 [facility] PT Coag (PPP) [Time] 21.3 s 11.7-14.9 [facility] Laboratory - Hematology and Cell countsOrdered By: Neri Mitchell on 11-14-2022 Erythrocyte distribution width (RBC) [Entitic vol] 44.7 fL 35.1-43.9 [facility] Erythrocyte distribution width (RBC) [Ratio] 13.0 % 11.6-14.6 [facility] Immature granulocytes/100 WBC (Bld) 0.300 % 0.0-0.9 [facility] Comment on above: IG% - Immature Granu locytes (promyelocytes, myelocytes and metamyelocytes) > 1% indicates that a LEFT SHIFT is Present. MCH (RBC) [Entitic mass] 29.9 pg 27.0-32.0 [facility] Nucleated RBC/100 WBC (Bld) [Ratio] 0 % 0-5 [facility] MCHC Auto (RBC) [Mass/Vol]Or dered By: Neri Mitchell on 11-14-2022 MCHC (RBC) [Mass/Vol] 31.9 g/dL 32-36 [facility] No Panel InformationOrdered By: Neri Mitchell on 11-14-2022 Estimated Creatinine Clearance Calc 28.76 ml/min [facility] Estimated GFR (MDRD) Amer 58 mL/min >60 [facility] Comment on above: GFR Calc Estimated GFR (MDRD) Non-Af Amer 48 mL/min >60 [facility] Comment on above: Non- GFR Calc Troponin I High Sensitivity 10 pg/mL 3.0-54.0 [facility] Comment on above: Please Note: New Evon t Units and Gender Specific Reference Ranges. For more information see Policy Stat Procedure [place] High Sensitivity Troponin (TNIH) and attachments. Platelets bldOrdered By: Prasad Mitchell on 11-14-2022 Platelets (Bld) [#/Vol] 313 10*3/uL 150-450 [facility] Serum or plasma calcium viktoria urement (mass/volume)Ordered By: Neri Mitchell on 11-14-2022 Calcium [Mass/Vol] 9.0 mg/dL 8.5-10.1 [facility] Serum or plasma creatinine m easurement (mass/volume)Ordered By: Neri Mitchell on 11-14-2022 Creatinine [Mass/Vol] 1.14 mg/dL 0.55-1.02 [facility] Comment on above: The validity of the calculated GFR & GFRAA in patients over 70 years has not been determined. Clinical correlation is essential. Serum or plasma urea nitroge n measurement (mass/volume)Ordered By: Neri Mitchell on 11-14-2022 Urea nitrogen [Mass/Vol] 14 mg/dL 7-18 [facility] Thin prep Papanicolaou smear with manual screeningOrdered By: Neri Mitchell on 11-14-2022 Thin prep Papanicolaou smear with manual screening 6 5-15 [facility] INR in Blood by Coagulation assayOrdered By: Dr. Juarez on 09-18-2022 INR Coag (Bld) [Relative time] 1.8 {INR} [facility] - CoagulationOrde red By: Dr. Juarez on 09-18-2022 PT Coag (PPP) [Time] 20.9 s 11.7-14.9 [facility] No Panel InformationOrdered By: Anant Juarez on 09-18-2022 Free Lambda Light Chains, Quant 15.7 mg/L 5.7-26.3 [facility] Whole Blood Vitamin B1 Level 111.8 nmol/L 66.5-200.0 [facility] Comment on above: Performed at: [facility] [address] [id number] Director: Master Vee PhD, Phone: [phone] at: [facility] [id number] Director: Brandon Wells MD, Phone: [phone] Serum immunoglobulin kappa l ight chains/immunoglobulin lambda light chains mass ratioOrdered By: Anant Juarez on 09-18-2022 Immunoglobulin light chains.kappa/Immunoglobul in light chains.lambda (S) [Mass ratio] 1.74 0.26-1.65 [facility] Serum or plasma folate measu rement (mass/volume)Ordered By: Dr. Juarez on 09-18-2022 Folate [Mass/Vol] 51.90 ng/mL 3.1-55.4 [facility] Comment on above: Slight Hemolysis, Re sult may be falsely increased. Serum or plasma immunoglobul in kappa light chains measurement (mass/volume)Ordered By: Anant Juarez on 09-18-2022 Immunoglobulin light chains.kappa [Mass/Vol] 27.3 mg/L 3.3-19.4 [facility] Culture, urineOrdered By: Slim Doran on 09-17-2022 Bacteria identified Cx Nom (U) Streptococcus agalactiae (B) [facility] INR in Blood by Coagulation assayOrdered By: Dr. Doran on 09-13-2022 INR Coag (Bld) [Relative time] 1.5 {INR} [facility] - CoagulationOrde red By: Dr. Doran on 09-13-2022 PT Coag (PPP) [Time] 18.1 s 11.7-14.9 [facility] Absolute lymphocyte countOrd ered By: Dr. Barcenas on 09-08-2022 Lymphocytes Auto (Unsp spec) [#/Vol] 2.60 10*3/uL 0.83-4.51 [facility] Basophil percentageOrdered B y: Dr. Barcenas on 09-08-2022 Basophil percentage 0 SEEN /hpf 0-5 [facility] Basophils/100 WBC (Bld) 0.4 % 0-1 [facility] Bilirubin [Mass/Vol] 0.30 mg/dL 0.20-1.00 [facility] Comment on above: For patients on eltr ombopag therapy, use of Dimension [place] TBIL is not recommended. Chloride [Moles/Vol] 103 mmol/L 98-107 [facility] Eosinophils/100 WBC (Bld) 2.3 % 0-5 [facility] Glucose [Mass/Vol] 78 mg/dL 74-106 [facility] Neutrophils (Bld) [#/Vol] 5.2 10*3/uL 2.0-7.7 [facility] Neutrophils/100 WBC (Bld) 57.4 % 47-70 [facility] Potassium [Moles/Vol] 3.8 mmol/L 3.5-5.1 [facility] Protein [Mass/Vol] 6.9 g/dL 6.4-8.2 [facility] Sodium [Moles/Vol] 139 mmol/L 136-145 [facility] WBC (Bld) [#/Vol] 9.1 10*3/uL 4.4-11.0 [facility] Bilirubin Test strip Ql (U)O rdered By: Dr. Barcenas on 09-08-2022 Bilirubin Ql (U) Negative Negative [facility] Blood erythrocytes count (nu mber/volume)Ordered By: Dr. Barcenas on 09-08-2022 RBC (Bld) [#/Vol] 4.48 10*6/uL 4.2-5.4 [facility] Blood hemoglobin measurement (mass/volume)Ordered By: Dr. Barcenas on 09-08-2022 Hemoglobin (Bld) [Mass/Vol] 13.4 g/dL 12.0-15.0 [facility] Blood lymphocytes/100 leukoc ytesOrdered By: Dr. Barcenas on 09-08-2022 Lymphocytes/100 WBC (Bld) 28.5 % 19-41 [facility] Blood monocytes/100 leukocyt esOrdered By: Dr. Barcenas on 09-08-2022 Monocytes/100 WBC (Bld) 11.1 % 0-10 [facility] Blood platelet mean volumeOr dered By: Dr. Barcenas on 09-08-2022 Platelet mean volume (Bld) [Entitic vol] 10.7 fL 6.2-12.0 [facility] Determination of erythrocyte mean corpuscular volume (MCV)Ordered By: Dr. Barcenas on 09-08-2022 MCV (RBC) [Entitic vol] 92.4 fL 81-99 [facility] Hematocrit Auto (Bld) [Volum e fraction]Ordered By: Dr. Barcenas on 09-08-2022 Hematocrit (Bld) [Volume fraction] 41.4 % 37-47 [facility] INR in Blood by Coagulation assayOrdered By: Dr. Barcenas on 09-08-2022 INR Coag (Bld) [Relative time] 1.0 {INR} [facility] Ketones Test strip Ql (U)Ord ered By: Dr. Barcenas on 09-08-2022 Ketones Ql (U) Negative Negative [facility] Laboratory - Chemistry and C hemistry - challengeOrdered By: Dr. Barcenas on 09-08-2022 ALP [Catalytic activity/Vol] 71 U/L 45-117 [facility] ALT [Catalytic activity/Vol] 9 U/L 13-56 [facility] CO2 [Moles/Vol] 30.0 mmol/L 21.0-32.0 [facility] Globulin (S) [Mass/Vol] 3.7 g/dL 2.2-4.2 [facility] Urea nitrogen/Creatinine [Mass ratio] 17.1 mg/mg 10-20 [facility] - CoagulationOrde red By: Dr. Barcenas on 09-08-2022 PT Coag (PPP) [Time] 13.6 s 11.7-14.9 [facility] Laboratory - Hematology and Cell countsOrdered By: Dr. Barcenas on 09-08-2022 Erythrocyte distribution width (RBC) [Entitic vol] 44.8 fL 35.1-43.9 [facility] Erythrocyte distribution width (RBC) [Ratio] 13.2 % 11.6-14.6 [facility] Immature granulocytes/100 WBC (Bld) 0.300 % 0.0-0.9 [facility] Comment on above: IG% - Immature Granu locytes (promyelocytes, myelocytes and metamyelocytes) > 1% indicates that a LEFT SHIFT is Present. MCH (RBC) [Entitic mass] 29.9 pg 27.0-32.0 [facility] Nucleated RBC/100 WBC (Bld) [Ratio] 0 % 0-5 [facility] MCHC Auto (RBC) [Mass/Vol]Or dered By: Dr. Barcenas on 09-08-2022 MCHC (RBC) [Mass/Vol] 32.4 g/dL 32-36 [facility] Mucus LM Ql (Urine sed)Order ed By: Dr. Barcenas on 09-08-2022 Mucus Ql (Urine sed) 0 SEEN /hpf [facility] Nitrite Test strip Ql (U)Ord ered By: Dr. Barcenas on 09-08-2022 Nitrite Ql (U) Negative Negative [facility] No Panel InformationOrdered By: Dr. Barcenas on 09-08-2022 Estimated Creatinine Clearance Calc 31.23 ml/min [facility] Estimated GFR (MDRD) Amer 64 mL/min >60 [facility] Comment on above: GFR Calc Estimated GFR (MDRD) Non-Af Amer 53 mL/min >60 [facility] Comment on above: Non- GFR Calc Troponin I High Sensitivity 86 pg/mL 3.0-54.0 [facility] Comment on above: Please Note: New Evon t Units and Gender Specific Reference Ranges. For more information see Policy Stat Procedure [place] High Sensitivity Troponin (TNIH) and attachments. Platelets bldOrdered By: Dr. Barcenas on 09-08-2022 Platelets (Bld) [#/Vol] 294 10*3/uL 150-450 [facility] Protein Test strip Ql (U)Ord ered By: Dr. Barcenas on 09-08-2022 Protein Ql (U) Negative Negative [facility] Serum or plasma albumin viktoria urement (mass/volume)Ordered By: Dr. Barcenas on 09-08-2022 Albumin [Mass/Vol] 3.2 g/dL 3.2-5.0 [facility] Serum or plasma albumin/glob ulin mass ratioOrdered By: Dr. Barcenas on 09-08-2022 Albumin/Globulin [Mass ratio] 0.9 {ratio} 0.9-2.4 [facility] Serum or plasma calcium viktoria urement (mass/volume)Ordered By: Dr. Barcenas on 09-08-2022 Calcium [Mass/Vol] 8.8 mg/dL 8.5-10.1 [facility] Serum or plasma creatinine m easurement (mass/volume)Ordered By: Dr. Barcenas on 09-08-2022 Creatinine [Mass/Vol] 1.05 mg/dL 0.55-1.02 [facility] Comment on above: The validity of the calculated GFR & GFRAA in patients over 70 years has not been determined. Clinical correlation is essential. Serum or plasma urea nitroge n measurement (mass/volume)Ordered By: Dr. Barcenas on 09-08-2022 Urea nitrogen [Mass/Vol] 18 mg/dL 7-18 [facility] Squamous epithelial cells de tection in urine sediment by light microscopyOrdered By: Dr. Barcenas on 09-08-2022 Epithelial cells.squamous LM Ql (Urine sed) 0-5 SEEN /hpf 5-10 [facility] Thin prep Papanicolaou smear with manual screeningOrdered By: Dr. Barcenas on 09-08-2022 Thin prep Papanicolaou smear with manual screening 9 U/L 15-37 [facility] Thin prep Papanicolaou smear with manual screening 6 5-15 [facility] Urine blood detectionOrdered By: Dr. Barcenas on 09-08-2022 RBC Ql (U) Negative Negative [facility] RBC Ql (U) 0 SEEN /hpf 0-5 [facility] Urine clarityOrdered By: Dr. Barcenas on 09-08-2022 Clarity (U) Clear Clear [facility] Urine color determinationOrd ered By: Dr. Barcenas on 09-08-2022 Color (U) Yellow Yellow [facility] Urine glucose detectionOrder ed By: Dr. Barcenas on 09-08-2022 Glucose Ql (U) Normal mg/dl Normal [facility] Urine leukocyte esterase det ection by dipstickOrdered By: Dr. Barcenas on 09-08-2022 Leukocyte esterase Test strip Ql (U) Negative Negative [facility] Urine pHOrdered By: Dr. Moody delgado on 09-08-2022 pH (U) 6.5 [pH] 5.0 - 8.0 [facility] Urine sediment bacteria coun t by microscopy (number/high power field)Ordered By: Dr. Barcenas on 09-08-2022 Bacteria LM.HPF (Urine sed) [#/Area] 0 /[HPF] None Seen [facility] Urine specific gravity measu rementOrdered By: Dr. Barcenas on 09-08-2022 Specific gravity (U) [Rel density] 1.010 1.002-1.030 [facility] Urobilinogen Auto test strip Ql (U)Ordered By: Dr. Barcenas on 09-08-2022 Urobilinogen Ql (U) Normal mg/dl Normal [facility] Absolute lymphocyte countOrd ered By: Dr. Doran on 09-05-2022 Lymphocytes Auto (Unsp spec) [#/Vol] 1.27 10*3/uL 0.83-4.51 [facility] Basophil percentageOrdered B y: Dr. Doran on 09-05-2022 Basophils/100 WBC (Bld) 0.4 % 0-1 [facility] Chloride [Moles/Vol] 106 mmol/L 98-107 [facility] Eosinophils/100 WBC (Bld) 1.0 % 0-5 [facility] Glucose [Mass/Vol] 202 mg/dL 74-106 [facility] Comment on above: Glucose result great er than or equal to 200 mg/dLsuggests DIABETES MELLITUS per A.D.A. criteria. Neutrophils (Bld) [#/Vol] 8.3 10*3/uL 2.0-7.7 [facility] Neutrophils/100 WBC (Bld) 79.7 % 47-70 [facility] Potassium [Moles/Vol] 3.7 mmol/L 3.5-5.1 [facility] Sodium [Moles/Vol] 139 mmol/L 136-145 [facility] WBC (Bld) [#/Vol] 10.4 10*3/uL 4.4-11.0 [facility] Blood erythrocytes count (nu mber/volume)Ordered By: Dr. Doran on 09-05-2022 RBC (Bld) [#/Vol] 4.72 10*6/uL 4.2-5.4 [facility] Blood hemoglobin measurement (mass/volume)Ordered By: Dr. Doran on 09-05-2022 Hemoglobin (Bld) [Mass/Vol] 14.1 g/dL 12.0-15.0 [facility] Blood lymphocytes/100 leukoc ytesOrdered By: Dr. Doran on 09-05-2022 Lymphocytes/100 WBC (Bld) 12.3 % 19-41 [facility] Blood monocytes/100 leukocyt esOrdered By: Dr. Doran on 09-05-2022 Monocytes/100 WBC (Bld) 6.3 % 0-10 [facility] Blood platelet mean volumeOr dered By: Dr. Doran on 09-05-2022 Platelet mean volume (Bld) [Entitic vol] 11.2 fL 6.2-12.0 [facility] Determination of erythrocyte mean corpuscular volume (MCV)Ordered By: Dr. Doran on 09-05-2022 MCV (RBC) [Entitic vol] 93.9 fL 81-99 [facility] Hematocrit Auto (Bld) [Volum e fraction]Ordered By: Dr. Doran on 09-05-2022 Hematocrit (Bld) [Volume fraction] 44.3 % 37-47 [facility] INR in Blood by Coagulation assayOrdered By: Dr. Doran on 09-05-2022 INR Coag (Bld) [Relative time] 1.1 {INR} [facility] Laboratory - Chemistry and C hemistry - challengeOrdered By: Dr. Doran on 09-05-2022 CO2 [Moles/Vol] 24.0 mmol/L 21.0-32.0 [facility] Urea nitrogen/Creatinine [Mass ratio] 18.3 mg/mg 10-20 [facility] Laboratory - CoagulationOrde red By: Dr. Doran on 09-05-2022 PT Coag (PPP) [Time] 13.8 s 11.7-14.9 [facility] Laboratory - Hematology and Cell countsOrdered By: Dr. Doran on 09-05-2022 Erythrocyte distribution width (RBC) [Entitic vol] 45.5 fL 35.1-43.9 [facility] Erythrocyte distribution width (RBC) [Ratio] 13.2 % 11.6-14.6 [facility] Immature granulocytes/100 WBC (Bld) 0.300 % 0.0-0.9 [facility] Comment on above: IG% - Immature Granu locytes (promyelocytes, myelocytes and metamyelocytes) > 1% indicates that a LEFT SHIFT is Present. MCH (RBC) [Entitic mass] 29.9 pg 27.0-32.0 [facility] Nucleated RBC/100 WBC (Bld) [Ratio] 0 % 0-5 [facility] MCHC Auto (RBC) [Mass/Vol]Or dered By: Dr. Doran on 09-05-2022 MCHC (RBC) [Mass/Vol] 31.8 g/dL 32-36 [facility] No Panel InformationOrdered By: Dr. Doran on 09-05-2022 Estimated GFR (MDRD) Amer 61 mL/min >60 [facility] Comment on above: GFR Calc Estimated GFR (MDRD) Non-Af Amer 50 mL/min >60 [facility] Comment on above: Non- GFR Calc Thyroid Stimulating Hormone (TSH) 2.84 uIU/mL 0.358-3.74 [facility] Platelets bldOrdered By: Dr. Doran on 09-05-2022 Platelets (Bld) [#/Vol] 311 10*3/uL 150-450 [facility] Serum or plasma calcium viktoria urement (mass/volume)Ordered By: Dr. Doran on 09-05-2022 Calcium [Mass/Vol] 8.8 mg/dL 8.5-10.1 [facility] Serum or plasma creatinine m easurement (mass/volume)Ordered By: Dr. Doran on 09-05-2022 Creatinine [Mass/Vol] 1.09 mg/dL 0.55-1.02 [facility] Comment on above: The validity of the calculated GFR & GFRAA in patients over 70 years has not been determined. Clinical correlation is essential. Serum or plasma urea nitroge n measurement (mass/volume)Ordered By: Dr. Doran on 09-05-2022 Urea nitrogen [Mass/Vol] 20 mg/dL 7-18 [facility] Thin prep Papanicolaou smear with manual screeningOrdered By: Dr. Doran on 09-05-2022 Thin prep Papanicolaou smear with manual screening 9 5-15 [facility] Absolute lymphocyte countOrd ered By: Dr. Doran on 08-08-2022 Lymphocytes Auto (Unsp spec) [#/Vol] 1.97 10*3/uL 0.83-4.51 [facility] Basophil percentageOrdered B y: Dr. Doran on 08-08-2022 Basophils/100 WBC (Bld) 0.5 % 0-1 [facility] Chloride [Moles/Vol] 105 mmol/L 98-107 [facility] Eosinophils/100 WBC (Bld) 3.2 % 0-5 [facility] Glucose [Mass/Vol] 147 mg/dL 74-106 [facility] Comment on above: Fasting Glucose resu lt greater than or equal to 126 mg/dL suggests DIABETES MELLITUS per A.D.A. criteria. Neutrophils (Bld) [#/Vol] 4.6 10*3/uL 2.0-7.7 [facility] Neutrophils/100 WBC (Bld) 60.9 % 47-70 [facility] Potassium [Moles/Vol] 4.9 mmol/L 3.5-5.1 [facility] Sodium [Moles/Vol] 140 mmol/L 136-145 [facility] WBC (Bld) [#/Vol] 7.5 10*3/uL 4.4-11.0 [facility] Blood erythrocytes count (nu mber/volume)Ordered By: Dr. Doran on 08-08-2022 RBC (Bld) [#/Vol] 4.73 10*6/uL 4.2-5.4 [facility] Blood hemoglobin measurement (mass/volume)Ordered By: Dr. Doran on 08-08-2022 Hemoglobin (Bld) [Mass/Vol] 14.0 g/dL 12.0-15.0 [facility] Blood lymphocytes/100 leukoc ytesOrdered By: Dr. Doran on 08-08-2022 Lymphocytes/100 WBC (Bld) 26.2 % 19-41 [facility] Blood monocytes/100 leukocyt esOrdered By: Dr. Doran on 08-08-2022 Monocytes/100 WBC (Bld) 8.8 % 0-10 [facility] Blood platelet mean volumeOr dered By: Dr. Doran on 08-08-2022 Platelet mean volume (Bld) [Entitic vol] 10.9 fL 6.2-12.0 [facility] Determination of erythrocyte mean corpuscular volume (MCV)Ordered By: Dr. Doran on 08-08-2022 MCV (RBC) [Entitic vol] 94.1 fL 81-99 [facility] Hematocrit Auto (Bld) [Volum e fraction]Ordered By: Dr. Doran on 08-08-2022 Hematocrit (Bld) [Volume fraction] 44.5 % 37-47 [facility] Laboratory - Chemistry and C hemistry - challengeOrdered By: Dr. Doran on 08-08-2022 CO2 [Moles/Vol] 29.0 mmol/L 21.0-32.0 [facility] Cobalamin (Vitamin B12) [Mass/Vol] 853 pg/mL 211-911 [facility] Urea nitrogen/Creatinine [Mass ratio] 18.3 mg/mg 10-20 [facility] Laboratory - Hematology and Cell countsOrdered By: Dr. Doran on 08-08-2022 Erythrocyte distribution width (RBC) [Entitic vol] 45.5 fL 35.1-43.9 [facility] Erythrocyte distribution width (RBC) [Ratio] 13.2 % 11.6-14.6 [facility] Immature granulocytes/100 WBC (Bld) 0.400 % 0.0-0.9 [facility] Comment on above: IG% - Immature Granu locytes (promyelocytes, myelocytes and metamyelocytes) > 1% indicates that a LEFT SHIFT is Present. MCH (RBC) [Entitic mass] 29.6 pg 27.0-32.0 [facility] Nucleated RBC/100 WBC (Bld) [Ratio] 0 % 0-5 [facility] MCHC Auto (RBC) [Mass/Vol]Or dered By: Dr. Doran on 08-08-2022 MCHC (RBC) [Mass/Vol] 31.5 g/dL 32-36 [facility] No Panel InformationOrdered By: Dr. Doran on 08-08-2022 Estimated GFR (MDRD) Amer 57 mL/min >60 [facility] Comment on above: GFR Calc Estimated GFR (MDRD) Non-Af Amer 47 mL/min >60 [facility] Comment on above: Non- GFR Calc Vitamin D 25-Hydroxy 35.5 ng/mL [facility] Comment on above: Vitamin D 25(OH) Sta tus Range Deficiency <20 ng/mL (50nmol/L) Insufficiency 20 - 30 ng/mL (50 - 75 nmol/L) Sufficiency 30 - 100 ng/mL (75 - 250 nmol/L) Toxicity >100 ng/mL (>250 nmol/L) Platelets bldOrdered By: Dr. Doran on 08-08-2022 Platelets (Bld) [#/Vol] 365 10*3/uL 150-450 [facility] Serum or plasma calcium viktoria urement (mass/volume)Ordered By: Dr. Doran on 08-08-2022 Calcium [Mass/Vol] 9.2 mg/dL 8.5-10.1 [facility] Serum or plasma creatinine m easurement (mass/volume)Ordered By: Dr. Doran on 08-08-2022 Creatinine [Mass/Vol] 1.15 mg/dL 0.55-1.02 [facility] Comment on above: The validity of the calculated GFR & GFRAA in patients over 70 years has not been determined. Clinical correlation is essential. Serum or plasma ferritin rich surement (mass/volume)Ordered By: Dr. Doran on 08-08-2022 Ferritin [Mass/Vol] 83 ng/mL 8-252 [facility] Serum or plasma urea nitroge n measurement (mass/volume)Ordered By: Dr. Doran on 08-08-2022 Urea nitrogen [Mass/Vol] 21 mg/dL 7-18 [facility] Thin prep Papanicolaou smear with manual screeningOrdered By: Dr. Doran on 08-08-2022 Thin prep Papanicolaou smear with manual screening 6 5-15 [facility] Absolute lymphocyte countOrd ered By: Dr. Doran on 06-26-2022 Lymphocytes Auto (Unsp spec) [#/Vol] 2.42 10*3/uL 0.83-4.51 [facility] Basophil percentageOrdered B y: Dr. Doran on 06-26-2022 Basophils/100 WBC (Bld) 0.5 % 0-1 [facility] Bilirubin [Mass/Vol] 0.40 mg/dL 0.20-1.00 [facility] Comment on above: For patients on eltr ombopag therapy, use of Dimension [place] TBIL is not recommended. Chloride [Moles/Vol] 106 mmol/L 98-107 [facility] Cholesterol [Mass/Vol] 163 mg/dL <200 [facility] Comment on above: <200 mg/dL Desirable 200-240 mg/dL Borderline >240 mg/dL High Risk Eosinophils/100 WBC (Bld) 4.2 % 0-5 [facility] Glucose [Mass/Vol] 142 mg/dL 74-106 [facility] Comment on above: Fasting Glucose resu lt greater than or equal to 126 mg/dL suggests DIABETES MELLITUS per A.D.A. criteria. Neutrophils (Bld) [#/Vol] 3.9 10*3/uL 2.0-7.7 [facility] Neutrophils/100 WBC (Bld) 53.1 % 47-70 [facility] Potassium [Moles/Vol] 4.3 mmol/L 3.5-5.1 [facility] Protein [Mass/Vol] 6.9 g/dL 6.4-8.2 [facility] Sodium [Moles/Vol] 139 mmol/L 136-145 [facility] Triglyceride [Mass/Vol] 178 mg/dL <199 [facility] Comment on above: The drugs N-Acetylcy steine and Metamizole may falsely depress this assay.Serum Triglycerides Reference Interval Normal <150 mg/dL Borderline high 150 - 199 mg/dL High 200 - 499 mg/dL Very High > or = 500 mg/dL WBC (Bld) [#/Vol] 7.4 10*3/uL 4.4-11.0 [facility] Blood erythrocytes count (nu mber/volume)Ordered By: Dr. Doran on 06-26-2022 RBC (Bld) [#/Vol] 4.51 10*6/uL 4.2-5.4 [facility] Blood hemoglobin measurement (mass/volume)Ordered By: Dr. Doran on 06-26-2022 Hemoglobin (Bld) [Mass/Vol] 13.5 g/dL 12.0-15.0 [facility] Blood lymphocytes/100 leukoc ytesOrdered By: Dr. Doran on 06-26-2022 Lymphocytes/100 WBC (Bld) 32.9 % 19-41 [facility] Blood monocytes/100 leukocyt esOrdered By: Dr. Doran on 06-26-2022 Monocytes/100 WBC (Bld) 9.0 % 0-10 [facility] Blood platelet mean volumeOr dered By: Dr. Doran on 06-26-2022 Platelet mean volume (Bld) [Entitic vol] 10.2 fL 6.2-12.0 [facility] Determination of erythrocyte mean corpuscular volume (MCV)Ordered By: Dr. Doran on 06-26-2022 MCV (RBC) [Entitic vol] 92.5 fL 81-99 [facility] Hematocrit Auto (Bld) [Volum e fraction]Ordered By: Dr. Doran on 06-26-2022 Hematocrit (Bld) [Volume fraction] 41.7 % 37-47 [facility] Laboratory - Chemistry and C hemistry - challengeOrdered By: Dr. Doran on 06-26-2022 ALP [Catalytic activity/Vol] 69 U/L 45-117 [facility] ALT [Catalytic activity/Vol] 13 U/L 13-56 [facility] CO2 [Moles/Vol] 29.0 mmol/L 21.0-32.0 [facility] Globulin (S) [Mass/Vol] 3.7 g/dL 2.2-4.2 [facility] Urea nitrogen/Creatinine [Mass ratio] 18.0 mg/mg 10-20 [facility] - Hematology and Cell countsOrdered By: Dr. Doran on 06-26-2022 Erythrocyte distribution width (RBC) [Entitic vol] 43.9 fL 35.1-43.9 [facility] Erythrocyte distribution width (RBC) [Ratio] 12.9 % 11.6-14.6 [facility] Immature granulocytes/100 WBC (Bld) 0.300 % 0.0-0.9 [facility] Comment on above: IG% - Immature Granu locytes (promyelocytes, myelocytes and metamyelocytes) > 1% indicates that a LEFT SHIFT is Present. MCH (RBC) [Entitic mass] 29.9 pg 27.0-32.0 [facility] Nucleated RBC/100 WBC (Bld) [Ratio] 0 % 0-5 [facility] MCHC Auto (RBC) [Mass/Vol]Or dered By: Dr. Doran on 06-26-2022 MCHC (RBC) [Mass/Vol] 32.4 g/dL 32-36 [facility] No Panel InformationOrdered By: Dr. Doran on 06-26-2022 Estimated GFR (MDRD) Amer 60 mL/min >60 [facility] Comment on above: GFR Calc Estimated GFR (MDRD) Non-Af Amer 49 mL/min >60 [facility] Comment on above: Non- GFR Calc Platelets bldOrdered By: Dr. Doran on 06-26-2022 Platelets (Bld) [#/Vol] 314 10*3/uL 150-450 [facility] Serum or plasma albumin viktoria urement (mass/volume)Ordered By: Dr. Doran on 06-26-2022 Albumin [Mass/Vol] 3.2 g/dL 3.2-5.0 [facility] Serum or plasma albumin/glob ulin mass ratioOrdered By: Dr. Doran on 06-26-2022 Albumin/Globulin [Mass ratio] 0.9 {ratio} 0.9-2.4 [facility] Serum or plasma calcium viktoria urement (mass/volume)Ordered By: Dr. Doran on 06-26-2022 Calcium [Mass/Vol] 8.8 mg/dL 8.5-10.1 [facility] Serum or plasma cholesterol in HDL measurement (mass/volume)Ordered By: Dr. Doran on 06-26-2022 Cholesterol in HDL [Mass/Vol] 47 mg/dL >40 [facility] Comment on above: The drugs N-Acetylcy steine and Metamizole may falsely depress this assay. Reference Range HDL <40 mg/dL Low HDL Cholesterol HDL >or= 60 mg/dL High HDL Cholesterol Serum or plasma cholesterol in VLDL measurement (mass/volume)Ordered By: Dr. Doran on 06-26-2022 Cholesterol in VLDL [Mass/Vol] 36 mg/dL 5-40 [facility] Serum or plasma creatinine m easurement (mass/volume)Ordered By: Dr. Doran on 06-26-2022 Creatinine [Mass/Vol] 1.11 mg/dL 0.55-1.02 [facility] Comment on above: The validity of the calculated GFR & GFRAA in patients over 70 years has not been determined. Clinical correlation is essential. Serum or plasma low density lipoprotein (LDL) cholesterol measurement (mass/volume)Ordered By: Dr. Doran on 06-26-2022 Cholesterol in LDL [Mass/Vol] 80 mg/dL 0-130 [facility] Serum or plasma urea nitroge n measurement (mass/volume)Ordered By: Dr. Doran on 06-26-2022 Urea nitrogen [Mass/Vol] 20 mg/dL 7-18 [facility] Thin prep Papanicolaou smear with manual screeningOrdered By: Dr. Doran on 06-26-2022 Thin prep Papanicolaou smear with manual screening 15 U/L 15-37 [facility] Thin prep Papanicolaou smear with manual screening 4 5-15 [facility] Absolute lymphocyte countOrd ered By: Reese Shankar on 02-11-2022 Lymphocytes Auto (Unsp spec) [#/Vol] 1.50 10*3/uL 0.83-4.51 [facility] Basophil percentageOrdered B y: Reese Shankar on 02-11-2022 Basophils/100 WBC (Bld) 0.4 % 0-1 [facility] Chloride [Moles/Vol] 102 mmol/L 98-107 [facility] Eosinophils/100 WBC (Bld) 1.7 % 0-5 [facility] Glucose [Mass/Vol] 153 mg/dL 74-106 [facility] Comment on above: Fasting Glucose resu lt greater than or equal to 126 mg/dL suggests DIABETES MELLITUS per A.D.A. criteria. Neutrophils (Bld) [#/Vol] 10.0 10*3/uL 2.0-7.7 [facility] Neutrophils/100 WBC (Bld) 79.1 % 47-70 [facility] Potassium [Moles/Vol] 3.9 mmol/L 3.5-5.1 [facility] Sodium [Moles/Vol] 138 mmol/L 136-145 [facility] WBC (Bld) [#/Vol] 12.7 10*3/uL 4.4-11.0 [facility] Blood erythrocytes count (nu mber/volume)Ordered By: Reese Shankar on 02-11-2022 RBC (Bld) [#/Vol] 4.24 10*6/uL 4.2-5.4 [facility] Blood hemoglobin measurement (mass/volume)Ordered By: Reese Shankar on 02-11-2022 Hemoglobin (Bld) [Mass/Vol] 12.8 g/dL 12.0-15.0 [facility] Blood lymphocytes/100 leukoc ytesOrdered By: Reese Shankar on 02-11-2022 Lymphocytes/100 WBC (Bld) 11.8 % 19-41 [facility] Blood monocytes/100 leukocyt esOrdered By: Reese Shankar on 02-11-2022 Monocytes/100 WBC (Bld) 6.7 % 0-10 [facility] Blood platelet mean volumeOr dered By: Reese Shankar on 02-11-2022 Platelet mean volume (Bld) [Entitic vol] 11.0 fL 6.2-12.0 [facility] Determination of erythrocyte mean corpuscular volume (MCV)Ordered By: Reese Shankar on 02-11-2022 MCV (RBC) [Entitic vol] 91.7 fL 81-99 [facility] Hematocrit Auto (Bld) [Volum e fraction]Ordered By: Reese Shankar on 02-11-2022 Hematocrit (Bld) [Volume fraction] 38.9 % 37-47 [facility] INR in Blood by Coagulation assayOrdered By: Reese Shankar on 02-11-2022 INR Coag (Bld) [Relative time] 2.7 {INR} [facility] - Chemistry and C hemistry - challengeOrdered By: Reese Shankar on 02-11-2022 CO2 [Moles/Vol] 26.0 mmol/L 21.0-32.0 [facility] Magnesium [Mass/Vol] 2.2 mg/dL 1.6-2.6 [facility] Urea nitrogen/Creatinine [Mass ratio] 18.5 mg/mg 10-20 [facility] - CoagulationOrde red By: Reese Shankar on 02-11-2022 PT Coag (PPP) [Time] 28.0 s 11.7-14.9 [facility] - Hematology and Cell countsOrdered By: Reese Shankar on 02-11-2022 Erythrocyte distribution width (RBC) [Entitic vol] 43.5 fL 35.1-43.9 [facility] Erythrocyte distribution width (RBC) [Ratio] 12.9 % 11.6-14.6 [facility] Immature granulocytes/100 WBC (Bld) 0.300 % 0.0-0.9 [facility] Comment on above: IG% - Immature Granu locytes (promyelocytes, myelocytes and metamyelocytes) > 1% indicates that a LEFT SHIFT is Present. MCH (RBC) [Entitic mass] 30.2 pg 27.0-32.0 [facility] Nucleated RBC/100 WBC (Bld) [Ratio] 0 % 0-5 [facility] MCHC Auto (RBC) [Mass/Vol]Or dered By: Reese Shankar on 02-11-2022 MCHC (RBC) [Mass/Vol] 32.9 g/dL 32-36 [facility] No Panel InformationOrdered By: Reese Shankar on 02-11-2022 Estimated Creatinine Clearance Calc 19.31 ml/min [facility] Estimated GFR (MDRD) Amer 36 mL/min >60 [facility] Comment on above: GFR Calc Estimated GFR (MDRD) Non-Af Amer 30 mL/min >60 [facility] Comment on above: Non- GFR Calc Troponin I High Sensitivity 13 pg/mL 3.0-54.0 [facility] Comment on above: Please Note: New Evon t Units and Gender Specific Reference Ranges. For more information see Policy Stat Procedure [place] High Sensitivity Troponin (TNIH) and attachments. Platelets bldOrdered By: Dontae Shankar on 02-11-2022 Platelets (Bld) [#/Vol] 286 10*3/uL 150-450 [facility] Serum or plasma calcium viktoria urement (mass/volume)Ordered By: Reese Shankar on 02-11-2022 Calcium [Mass/Vol] 9.1 mg/dL 8.5-10.1 [facility] Serum or plasma creatinine m easurement (mass/volume)Ordered By: Reese Shankar on 02-11-2022 Creatinine [Mass/Vol] 1.73 mg/dL 0.55-1.02 [facility] Comment on above: The validity of the calculated GFR & GFRAA in patients over 70 years has not been determined. Clinical correlation is essential. Serum or plasma urea nitroge n measurement (mass/volume)Ordered By: Reese Shankar on 02-11-2022 Urea nitrogen [Mass/Vol] 32 mg/dL 7-18 [facility] Thin prep Papanicolaou smear with manual screeningOrdered By: Reese Shankar on 02-11-2022 Thin prep Papanicolaou smear with manual screening 10 5-15 [facility] CNPNon 10-14-2019 CNPN Telephone (AGCARDPOB ) EZRA GONZALEZ ([id number]) 1935 F Date Time Provider Department 10/14/19 [...] artery stent placement- 2006 [Z95*11/14/2015 Atherosclerosis of galena coronary artery of na*11/14/2015 Asymptomatic cholelithiasis [K80.20] [...] Encounter Status:Closed by ELVER ACOSTA on 10/14/19 [facility] Guido 10-12-2019 CNPTOUTREA Patient Outreach ([facility]) EZRA GONZALEZ ([id number]) 1935 F Date Time Provider Department 10/12/19 SWATHI CRUZ) [facility] During your visit today, we recorded the following information about you: Swathi Cruz LPN, LEE 10/12/2019 10:48 AM Signed ED Follow Up: Patient discharged from [facility] ED on 10/11/2019 for Fall, rib [...] Visit: Transition Of Care [4074] Cmt: ED [facility] 10/11/2019 (Pt. has new pcp) Reason [...] artery stent placement- 2006 [Z95*11/14/2015 Atherosclerosis of gal[place] coronary artery of na*11/14/2015 Asymptomatic cholelithiasis [K80.20] [...] Status:Closed by SWATHI CRUZ LPN on 10/12/19 [facility] OBSOLETEon 10-12-2019 OBSOLETE Refill ([facility]) EZRA GONZALEZ ([id number]) 1935 F Date Time Provider [facility] your visit today, we recorded the following information about you: Anne Marie Hobbs Reg 10/12/2019 7:50 AM Signed Pharmacy faxed requesting the following refill. Pending Prescriptions Disp Refills FUROSEMIDE 20 MG TABLET 90 tablet 0 Sig: TAKE ONE TABLET BY MOUTH EVERY DAY SHAHEEN: Yes Last refill: 01/21/2019 Patient last appointment: 09/22/2019 Patient next appointment: Visit date not found Patient Phone numbers: [phone] (home) Request is for script(s) to be [...] artery stent placement- 2006 [Z95*11/14/2015 Atherosclerosis of gal[place] coronary artery of na*11/14/2015 Asymptomatic cholelithiasis [K80.20] [...] Status:Closed by LYNN BENEDICT LPN on 11/11/19 [facility] PROGRESSon 10-12-2019 PROGRESS HNO ID: [id number] Author: Swathi Cruz LPN Service: ? Author Type: LICENSED NURSE Type: Progress Notes Filed: 10/12/2019 10:48 AM Note Text: ED Follow Up: Patient discharged from [facility] ED on 10/11/2019 for Fall, rib fracture Outreach # 1, Contact Made. Patient was called at this time. Patient verified by name and . Patient stated she has a new PCP Dr. Sada Doran who she will follow up with. Swathi Cruz LPN 10/12/2019 10:45 AM [facility] CNPMari 10-06-2019 JAROD Telephone (AGINTMAC) EZRA GONZALEZ ([id number]) 1935 F Date Time Provider Department 10/06/19 [...] Date: 12/30/16 +++Patient gets lab draw at [facility] in [place] [phone]+++ PT INR Date Value Ref Range Status [...] (HCC) [I48.91] Order(s):PROTHROMBIN TIME/PT [SQPT] Order #: [id number] Prescriptions as of 10/06/2019 Sig: METOPROLOL SUCCINATE [...] artery stent placement- 2006 [Z95*11/14/2015 Atherosclerosis of [place] coronary artery of na*11/14/2015 Asymptomatic cholelithiasis [K80.20] [...] Encounter Status:Closed by BHAKTI (PHARMACIST)ESTEFANIA on 10/06/19 [facility] Bao 09-22-2019 CNPN Telephone ([facility]) LISAEZRA ([id number]) 1935 F Date Time Provider Department 09/22/19 JO PEREZ [facility] During your visit today, we recorded the following information about you: Maryanne Gomez MA 09/22/2019 10:38 AM Signed Patient is aware that you are going to be leaving the practice. She states she recently moved down to [place] and wants to find a physician closer to her Is there anyone that you recommend Maryanne Gomez MA 09/22/2019 10:37 AM Jo Perez MD 09/22/2019 12:[address] barker at [facility] Alicia Park LPN 09/22/2019 1:21 PM [...] Fully Assessed Reason for Visit: Patient Question [3649] Cmt: [facility] in [facility] Prescriptions as of 09/22/2019 Sig: METOPROLOL [...] artery stent placement- 2006 [Z95*11/14/2015 Atherosclerosis of [place] coronary artery of na*11/14/2015 Asymptomatic cholelithiasis [K80.20] [...] Encounter Status:Closed by ALICIA PARK on 09/22/19 [facility] CNPTOUTREACHon 09-22-2019 [facility] Patient Outreach ([facility]) EZRA GONZALEZ ([id number]) 1935 F Date Time Provider Department 09/22/19 MARYANNE GOMEZ) [facility] During your visit today, we recorded the following information about you: Maryanne Gomez MA 09/22/2019 10:34 AM Signed HIGH RISK CHRONIC DISEASE MONITORING - [facility] Provider Action/FYI: Patient doing well Contact made with patient: Yes Hi my name is Maryanne Gomez MA and I am calling from the [facility] on behalf of your PCP. I'm calling [...] like to speak with a social work hospice team lead to help give you support for any [...] artery stent placement- 2006 [Z95*11/14/2015 Atherosclerosis of [place] coronary artery of na*11/14/2015 Asymptomatic cholelithiasis [K80.20] [...] Encounter Status:Closed by MARYANNE GOMEZ on 09/22/19 [facility] PROGRESSon 09-22-2019 PROGRESS HNO ID: [id number] Author: Maryanne Gomez Service: ? Author Type: [employer] Account Assistant Type: Progress Notes Filed: 09/22/2019 10:34 AM Note Text: HIGH RISK CHRONIC DISEASE MONITORING - [facility] Provider Action/FYI: Patient doing well Contact made with patient: Yes Hi my name is Maryanne Gomez MA and I am calling from the [facility] on behalf of your PCP. I'm calling [...] like to speak with a social work hospice team lead to help give you support for any [...] Outreach.) Maryanne Gomez MA 09/22/2019 10:[address] [facility] ([facility]) LISAEZRA ([id number]) 1935 F Date Time Provider Department 09/21/19 JO PEREZ [facility] During your visit today, we recorded the following information about you: Alicia Park LPN 09/21/2019 10:43 AM Signed HIGH RISK CHRONIC DISEASE MONITORING - [facility] Provider Action/FYI: Contact made with patient: No - Left 1st message - Hi my name is Alicia Park LPN and I am calling from the [facility] on behalf of your PCP, Jo Perez [...] artery stent placement- 2006 [Z95*11/14/2015 Atherosclerosis of [place] coronary artery of na*11/14/2015 Asymptomatic cholelithiasis [K80.20] [...] Encounter Status:Closed by ALICIA PARK on 09/21/19 [facility] PROGRESSon 09-21-2019 PROGRESS HNO ID: [id number] Author: Alicia Bush) Vivian Service: ? Author Type: LICENSED NURSE Type: Progress Notes Filed: 09/21/2019 10:43 AM Note Text: HIGH RISK CHRONIC DISEASE MONITORING - [facility] Provider Action/FYI: Contact made with patient: No - Left 1st message - Hi my name is Alicia Park LPN and I am calling from the [facility] on behalf of your PCP, Jo Perez [...] Track Pt Outreach. End outreach.) [facility] ([id number]) 1935 F Date Time Provider Department 09/02/19 [...] Date: 12/30/16 +++Patient gets lab draw at [facility] in [place] [phone]+++ PT INR Date Value Ref Range Status [...] Patient will have next INR drawn at [facility] in [place] next month. Order placed. [...] (HCC) [I48.91] Order(s):PROTHROMBIN TIME/PT [SQPT] Order #: [id number] PROTHROMBIN TIME/PT [SQPT] Order #: [id number] STANDING Prescriptions as of 09/02/2019 Sig: METOPROLOL [...] artery stent placement- 2006 [Z95*11/14/2015 Atherosclerosis of [place] coronary artery of na*11/14/2015 Asymptomatic cholelithiasis [K80.20] [...] Encounter Status:Closed by BHAKTI (PHARMACIST)ESTEFANIA on 09/03/19 [facility] CNPTOUTREACHochastity 08-12-2019 [facility] ([facility]) EZRA GONZALEZ ([id number]) 1935 F Date Time Provider Department 08/12/19 MARYANNE GOMEZ) [facility] During your visit today, we recorded the following information about you: Maryanne Gomez MA 08/12/2019 9:39 AM Signed HIGH RISK CHRONIC DISEASE MONITORING - [facility] Provider Action/FYI: Left 2nd message, will add patient to schedule for a month Contact made with patient: No, Left 2nd message - Hi my name is Maryanne Gomez MA and I am calling from the [facility] on behalf of your PCP, Jo Perez [...] artery stent placement- 2006 [Z95*11/14/2015 Atherosclerosis of [place] coronary artery of na*11/14/2015 Asymptomatic cholelithiasis [K80.20] [...] Encounter Status:Closed by MARYANNE GOMEZ on 08/12/19 [facility] PROGRESSon 08-12-2019 PROGRESS HNO ID: [id number] Author: Maryanne Gomez Service: ? Author Type: [employer] Account Assistant Type: Progress Notes Filed: 08/12/2019 9:39 AM Note Text: HIGH RISK CHRONIC DISEASE MONITORING - [facility] Provider Action/FYI: Left 2nd message, will add patient to schedule for a month Contact made with patient: No, Left 2nd message - Hi my name is Maryanne Gomez MA and I am calling from the [facility] on behalf of your PCP, Jo Perez [...] Normal [facility] EZRA GONZALEZ ([id number]) 1935 F Date Time Provider Department 08/11/19 MARYANNE GOMEZ) [facility] During your visit today, we recorded the following information about you: Maryanne Gomez MA 08/11/2019 10:02 AM Signed HIGH RISK CHRONIC DISEASE MONITORING - [facility] Provider Action/FYI: Left message, will add to schedule for tomorrow Contact made with patient: No - Left 1st message - Hi my name is Maryanne Gomez MA and I am calling from the [facility] on behalf of your PCP, Jo Perez [...] artery stent placement- 2006 [Z95*11/14/2015 Atherosclerosis of [place] coronary artery of na*11/14/2015 Asymptomatic cholelithiasis [K80.20] [...] Encounter Status:Closed by MARYANNE GOMEZ on 08/11/19 [facility] PROGRESSon 08-11-2019 PROGRESS HNO ID: [id number] Author: Maryanne Gomez Service: ? Author Type: [employer] Account Assistant Type: Progress Notes Filed: 08/11/2019 10:02 AM Note Text: HIGH RISK CHRONIC DISEASE MONITORING - [facility] Provider Action/FYI: Left message, will add to schedule for tomorrow Contact made with patient: No - Left 1st message - Hi my name is Maryanne Gomez MA and I am calling from the [facility] on behalf of your PCP, Jo Perez [...] ended Maryanne Gomez MA 08/11/2019 10:01 AM [facility] OBSOLETEon 08-05-2019 OBSOLETE Refill (AGCARDPOB) LISAEZRA ([id number]) 1935 F Date Time Provider Department 08/05/19 [...] artery stent placement- 2006 [Z95*11/14/2015 Atherosclerosis of [place] coronary artery of na*11/14/2015 Asymptomatic cholelithiasis [K80.20] [...] Encounter Status:Closed by LYNETTE OROURKE on 08/05/19 [facility] CNPTOUTREACHon 08-04-2019 [facility] Patient Outreach ([facility]) EZRA GONZALEZ ([id number]) 1935 F Date Time Provider Department 08/04/19 MARYANNE GOMEZ) [facility] During your visit today, we recorded the following information about you: Maryanne Gomez MA 08/04/2019 11:03 AM Signed HIGH RISK CHRONIC DISEASE MONITORING - [facility] Provider Action/FYI: Patient has no questions or concerns at this time Contact made with patient: Yes Hi my name is Maryanne Gomez MA and I am calling from the [facility] on behalf of your PCP. I'm calling [...] like to speak with a social work hospice team lead to help give you support for any [...] artery stent placement- 2006 [Z95*11/14/2015 Atherosclerosis of [place] coronary artery of na*11/14/2015 Asymptomatic cholelithiasis [K80.20] [...] [facility] PRO[facility]ESS[facility] 08-04-2019 PROGRESS HNO ID: [id number] Author: Maryanne Gomez Service: ? Author Type: [employer] Account Assistant Type: Progress Notes Filed: 08/04/2019 11:03 AM Note Text: HIGH RISK CHRONIC DISEASE MONITORING - [facility] Provider Action/FYI: Patient has no questions or concerns at this time Contact made with patient: Yes Hi my name is Maryanne Gomez MA and I am calling from the [facility] on behalf of your PCP. I'm calling [...] like to speak with a social work hospice team lead to help give you support for any [...] [facility] OBS[facility]LETE[facility] 08-03-2019 OBSOLETE Refill (AGCARDPOB) LISAEZRA ([id number]) 1935 F Date Time Provider Department 08/03/19 [...] artery stent placement- 2006 [Z95*11/14/2015 Atherosclerosis of [place] coronary artery of na*11/14/2015 Asymptomatic cholelithiasis [K80.20] [...] Status:Closed by KATYA WELLS CNP on 08/03/19 [facility] CNPTOUTREACHon 07-28-2019 [facility] EZRA GONZALEZ ([id number]) 1935 F Date Time Provider Department 07/28/19 MARYANNE GOMEZ) [facility] During your visit today, we recorded the following information about you: Maryanne Gomez MA 07/28/2019 3:18 PM Signed HIGH RISK CHRONIC DISEASE MONITORING - [facility] Provider Action/FYI: Patient wants to [...] I am calling from the [facility] on behalf of your PCP. I'm calling [...] like to speak with a social work hospice team lead to help give you support for any [...] Please report her afib episode to her hog tender (you can just route this chart to [...] use of insulin (HCC) [E11.9] Order(s):HGB A1C [QVLVE8F] Order #: [id number] FUTURE LIPID PANEL BASIC [SQLIPB] Order #: [id number] FUTURE COMP METABOLIC PANEL [SQCMP] Order #: [id number] FUTURE ALBUMIN QUANT 24H UR [SQUALBQ] Order #: [id number] FUTURE Prescriptions as of 07/28/2019 Sig: SIMVASTATIN [...] artery stent placement- 2006 [Z95*11/14/2015 Atherosclerosis of [place] coronary artery of na*11/14/2015 Asymptomatic cholelithiasis [K80.20] [...] Encounter Status:Closed by JO PEREZ on 07/28/19 [facility] OBSOLETEon 07-28-2019 OBSOLETE Refill (AGCARDHWG) EZRA GONZALEZ ([id number]) 1935 F Date Time Provider Department 07/28/19 [...] artery stent placement- 2006 [Z95*11/14/2015 Atherosclerosis of [place] coronary artery of na*11/14/2015 Asymptomatic cholelithiasis [K80.20] [...] Status:Closed by ARCELIA LOCKETT CNP on 07/28/19 [facility] PROGRESSon 07-28-2019 PROGRESS HNO ID: [id number] Author: Maryanne Gomez Service: ? Author Type: [employer] Account Assistant Type: Progress Notes Filed: 07/28/2019 3:18 PM [...] necessary. Maryanne Gomez MA 07/28/2019 3:05 PM [facility] PROGRESS HNO ID: [id number] Author: Jo Perez Service: ? Author Type: Physician Type: Progress Notes Filed: 07/28/2019 3:18 PM Note Text: Please report her afib episode to her hog tender (you can just route this chart to [...] get labs done prior to her visit [facility] PROGRESS HNO ID: [id number] Author: Maryanne Gomez Service: ? Author Type: [employer] Account Assistant Type: Progress Notes Filed: 07/28/2019 3:18 PM Note Text: HIGH RISK CHRONIC DISEASE MONITORING - [facility] Provider Action/FYI: Patient wants to [...] I am calling from the [facility] on behalf of your PCP. I'm calling [...] like to speak with a social work hospice team lead to help give you support for any [...] OBSOLETEon 07-14-2019 OBSOLETE Refill (AGMPC) EZRA GONZALEZ ([id number]) 1935 F Date Time Provider Department 07/14/19 [...] Visit date not found Patient Phone numbers: [phone] (home) Request is for script(s) to be [...] artery stent placement- 2006 [Z95*11/14/2015 Atherosclerosis of galena coronary artery of na*11/14/2015 Asymptomatic cholelithiasis [K80.20] [...] Encounter Status:Closed by JO PEREZ on 07/14/19 [facility] OBSOLETE Refill (AGCXAVIPOB) EZRA GONZALEZ ([id number]) 1935 F Date Time Provider Department 07/14/19 [...] artery stent placement- 2006 [Z95*11/14/2015 Atherosclerosis of galena coronary artery of na*11/14/2015 Asymptomatic cholelithiasis [K80.20] [...] Status:Closed by RICKEY CHAVARRIA MD on 07/14/19 [facility] ([facility]) EZRA GONZALEZ ([id number]) 1935 F Date Time Provider Department 07/12/19 [facility] During your visit today, we [...] Date: 12/30/16 +++Patient gets lab draw at [facility] in [place] [phone]+++ PT INR Date Value Ref Range Status [...] (HCC) [I48.91] Order(s):PROTHROMBIN TIME/PT [SQPT] Order #: [id number] Prescriptions as of 07/12/2019 Sig: LISINOPRIL 5 [...] artery stent placement- 2006 [Z95*11/14/2015 Atherosclerosis of galena coronary artery of na*11/14/2015 Asymptomatic cholelithiasis [K80.20] [...] Encounter Status:Closed by BHAKTI (PHARMACIST)ESTEFANIA on 07/12/19 [facility] OBSOLETEon 07-05-2019 OBSOLETE Refill (AGMPC) EZRA GONZALEZ ([id number]) 1935 F Date Time Provider Department 4/6/20 [...] Patient next appointment: 07/28/2019 Patient Phone numbers: [phone] (home) Request is for script(s) to be escript to pharmacy. Robert Diaz CMA Bernarda [place] 07/13/2019 11:23 AM Signed Pharmacy called to say Ranitidine was recalled and Pepcid is on backorder. Asked what we want to do as an alternative. Spoke with Dr. Perez and she said Omeprazole 20 mg once a day. Asked the pharmacy to either call the office or the patient once Pepcid is no longer on backorder per Dr. Perez. Bernarda [place] 07/13/2019 11:23 AM Allergies As of Date: [...] artery stent placement- 2006 [Z95*11/14/2015 Atherosclerosis of galena coronary artery of na*11/14/2015 Asymptomatic cholelithiasis [K80.20] [...] Status:Closed by PATITO WILSON CNP on 07/05/19 [facility] OBSOLETEon 07-01-2019 OBSOLETE Refill ([facility]) EZRA GONZALEZ ([id number]) 1935 F Date Time Provider Department 07/01/19 JO PEREZ [facility] During your visit today, we recorded the following information about you: Robert Diaz CMA 07/01/2019 9:20 AM Signed Patient called requesting the following refill. Pending Prescriptions Disp Refills RANITIDINE 150 MG TABLET 90 tablet 0 Sig: Take 1 tablet by mouth once daily. SHAHEEN: No Last refill: 03/18/2019 Patient last appointment: 06/10/2019 Patient next appointment: 07/28/2019 Patient Phone numbers: [phone] (home) Request is for script(s) to be [...] artery stent placement- 2006 [Z95*11/14/2015 Atherosclerosis of galena coronary artery of na*11/14/2015 Asymptomatic cholelithiasis [K80.20] [...] Encounter Status:Closed by JO PEREZ on 07/01/19 [facility] 06-10-2019 CNP[facility] Telephone [place] EZRA GONZALEZ ([id number]) 1935 F Date Time Provider Department 06/10/19 [...] artery stent placement- 2006 [Z95*11/14/2015 Atherosclerosis of galena coronary artery of na*11/14/2015 Asymptomatic cholelithiasis [K80.20] [...] Status:Closed by SWATHI CRUZ LPN on 06/10/19 [facility] 06-07-2019 CNPN Telephone ([employer]) EZRA GONZALEZ ([id number]) 1935 F Date Time Provider Department 06/07/19 [...] Date: 12/30/16 +++Patient gets lab draw at [facility] in [place] [phone]+++ PT INR Date Value Ref Range Status [...] (HCC) [I48.91] Order(s):PROTHROMBIN TIME/PT [SQPT] Order #: [id number] Prescriptions as of 06/07/2019 Sig: COQ-10 ORAL [...] artery stent placement- 2006 [Z95*11/14/2015 Atherosclerosis of galena coronary artery of na*11/14/2015 Asymptomatic cholelithiasis [K80.20] [...] Encounter Status:Closed by BHAKTI (PHARMACIST)ESTEFANIA on 06/07/19 [facility] 06-04-2019 CNPN Telephone ([facility]) EZRA GONZALEZ ([id number]) 1935 F Date Time Provider Department 06/04/19 [...] artery stent placement- 2006 [Z95*11/14/2015 Atherosclerosis of galena coronary artery of na*11/14/2015 Asymptomatic cholelithiasis [K80.20] [...] Encounter Status:Closed by BHAKTI (PHARMACIST)ESTEFANIA on 06/04/19 [facility] CNOVon 05-13-2019 CNOV Office Visit (AGHWW1 ) EZRA GONZALEZ ([id number]) 1935 F Date Time Provider Department 05/13/19 4:00 PM CRUZ SANCHEZ AGHWW1 During your visit today, we recorded the following information about you: Respiration Weight Height 18/minute 82.6 kg 1.613 m Cruz Sanchez MD 05/13/2019 5:00 PM Signed HISTORY OF PRESENT ILLNESS: Ezra Gonzalez is an 83-year-old lscdh-epxf-tndvboxl female who returns for follow-up right shoulder [...] associated with diabetes mellitus (HCC) - 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) 2006 - On anticoagulant therapy - On group home drug therapy - Osteoarthritis - Peripheral venous [...] R Shoulder CARDIOVASCULAR: Peripheral venous insufficiency, h/o MA, HTN, Coronary Arteriosclerosis, A-Fib, Cardiac Ablation MSK: [...] [Z98.890] Order(s):Large Joint Arthro/Inj: R subacromial bursa [JJW854] Order #: [id number] betamethasone acetate-betamethasone sodium phosphate 12 mg injection [...] artery stent placement- 2006 [Z95*11/14/2015 Atherosclerosis of galena coronary artery of na*11/14/2015 Asymptomatic cholelithiasis [K80.20] [...] Status:Closed by CRUZ SANCHEZ MD on 05/13/19 [facility] PROGRESSon 05-13-2019 PROGRESS HNO ID: [id number] Author: Cruz Sanchez Service: ? 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 She elects to follow-up as needed. Crzu Sanchez MD [facility] 04-27[facility] ([id number]) 1935 F Date Time Provider Department 04/27/19 [...] coronary artery stent placement- 2006 Atherosclerosis of [place] Coronary Artery of [place] Heart Without Angina Pectoris Asymptomatic Cholelithiasis History [...] Podiatry 05/19/2015 End 05/19/15 Nirmal Bogdan Justo CAMPAIGN MANAGEMENT SPECIALIST 07/07/2017 End 07/07/17 ; Mohan Álvarez Ophthalmology 07/07/2017 End 07/07/17 Rickey Clive Bishop Cardiology 09/30/2018 End 09/30/18 ; End of Live Planning discussed including patients advanced directive wishes: Yes I am willing to follow advanced directives. 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 - Discussed diabetic education issues of group home diabetic complications, hypoglycemic symptoms, hyperglycemic symptoms, diet, [...] prepared fairly simply. If you were a txhy-vzc-ykyzlmvp eater, focus on the meat more than [...] your kitchen up for success. Always have hle-aqze-nnvgdmyr foods on hand ready to eat. Remove [...] unspecified type [R19.7] Order(s):ADMIN OF INFLUENZA VACCINE [F3925DGA] Order #: [id number]: 1 INFLUENZA SEASONAL HIGH DOSE AGE 65+ [50981VLX] Order #: [id number] metFORMIN (GLUCOPHAGE) 500 mg tabletTake 1 tablet by mouth daily with breakfast.Disp: Rfl: HGB A1C [CKYKL1E] Order #: [id number] FUTURE COMP METABOLIC PANEL [SQCMP] Order #: [id number] FUTURE Prescriptions as of 04/27/2019 Sig: COQ-10 [...] artery stent placement- 2006 [Z95*11/14/2015 Atherosclerosis of galena coronary artery of na*11/14/2015 Asymptomatic cholelithiasis [K80.20] [...] prepared fairly simply. If you were a crin-mus-xopooivp eater, focus on the meat more than [...] your kitchen up for success. Always have uko-xami-rslvljxh foods on hand ready to eat. Remove [...] Encounter Status:Closed by JO PEREZ on 04/27/19 [facility] PROGRESSon 04-27-2019 PROGRESS HNO ID: [id number] Author: Jo Perez Service: ? Author Type: [...] coronary artery stent placement- 2006 Atherosclerosis of [place] Coronary Artery of [place] Heart Without Angina Pectoris Asymptomatic Cholelithiasis History [...] Gonzalez Podiatry 05/19/2015 End 05/19/15 Nirmal Kemp CAMPAIGN MANAGEMENT SPECIALIST 07/07/2017 End 07/07/17 ; Mohan Álvarez Ophthalmology 07/07/2017 End 07/07/17 Rickey Chavarria Cardiology 09/30/2018 End 09/30/18 ; End of Live Planning discussed including patients advanced directive wishes: Yes I am willing to follow advanced directives. 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 - Discussed diabetic education issues of buttermaker helper diabetic complications, hypoglycemic symptoms, hyperglycemic symptoms, diet, [...] screening - Lipid panel Jo Perez MD [facility] CNOVon 03-18-2019 CNOV Office Visit (AGHWW1 ) EZRA GONZALEZ ([id number]) 1935 F Date Time Provider Department 03/18/19 4:00 PM CRUZ SANCHEZ AGHWW1 During your visit today, we recorded the following information about you: Respiration Weight Height 17/minute 80.7 kg 1.651 m Cruz Sanchez MD 03/18/2019 7:00 PM Signed HISTORY OF PRESENT ILLNESS: Ezra Gonzalez is an 83-year-old hcjhi-esdw-ofleyfzx female who returns for follow-up right shoulder [...] and strength with continued physical therapy in [place]. 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 Author Type: Physician Type: Progress Notes Filed: 03/18/2019 7:00 PM Note Text: HISTORY OF PRESENT ILLNESS: Ezra Gonzalez is an 83-year-old cecqj-wpja-vuxgzjqx female who returns for follow-up right shoulder [...] and strength with continued physical therapy in [place]. She is currently using the yellow to [...] associated with diabetes mellitus (HCC) - 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) 2006 - On anticoagulant therapy - On buttermaker helper drug therapy - Osteoarthritis - Peripheral venous [...] to follow-up as needed. Cruz Sanchez MD [facility] OBSOLETEon 03-17-2019 OBSOLETE Refill ([facility]) LISAEZRA Alis ([id number]) 1935 F Date Time Provider Department 03/17/19 VIPUL BUCHANAN ([facility]) [facility] During your visit today, we recorded the following information about you: Anen Marie Hobbs Reg 03/18/2019 7:40 AM Signed Pharmacy faxed requesting the following refill. Pending Prescriptions Disp Refills LISINOPRIL 5 MG TABLET 90 tablet 0 Sig: TAKE ONE TABLET BY MOUTH once DAILY SHAHEEN: Yes Last refill: 10/09/2018 Patient last appointment: 09/30/2018 Patient next appointment: Visit date not found Patient Phone numbers: [phone] (home) Request is for script(s) to be [...] artery stent placement- 2006 [Z95*11/14/2015 Atherosclerosis of galena coronary artery of na*11/14/2015 Asymptomatic cholelithiasis [K80.20] [...] Encounter Status:Closed by JO PEREZ on 03/18/19 [facility] OBSOLETE Refill ([facility]) EZRA GONZALEZ ([id number]) 1935 F Date Time Provider Department 03/17/19 JO PEREZ [facility] During your visit today, we recorded the following information about you: Anne Marie Britogers Reg 03/18/2019 7:41 AM Signed Pharmacy faxed requesting the following refill. Pending Prescriptions Disp Refills RANITIDINE 150 MG TABLET 90 tablet 0 Sig: TAKE ONE TABLET BY MOUTH EVERY DAY SHAHEEN: Yes Last refill: 12/16/2018 Patient last appointment: 09/30/2018 Patient next appointment: 04/02/2019 Patient Phone numbers: [phone] (home) Request is for script(s) to be [...] Myalgias Date Reviewed: 02/04/2019 Reviewed by: Cruz Sanhcez - Fully Assessed Reason for Visit: Refill [...] artery stent placement- 2006 [Z95*11/14/2015 Atherosclerosis of galena coronary artery of na*11/14/2015 Asymptomatic cholelithiasis [K80.20] [...] [facility] Office Visit (AGHWW1 ) EZRA GONZALEZ ([id number]) 1935 F Date Time Provider Department 02/04/19 1:30 PM CRUZ SANCHEZ HWW1 During your visit today, we recorded the following information about you: Respiration Weight Height 17/minute 80.7 kg 1.676 m Cruz Sanchez MD 02/04/2019 4:40 PM Signed HISTORY OF PRESENT ILLNESS: Ezra Gonzalez was provided orthopedic evaluation regarding right shoulder complaints. Patient is an 83-year-old qghll-ntdu-birxkhrh female who is previously known status post [...] associated with diabetes mellitus (HCC) - 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) 2006 - On anticoagulant therapy - On buttermaker helper drug therapy - Osteoarthritis - Peripheral venous [...] conditions CARDIOVASCULAR: A-Fib, Coronary Arteriosclerosis, HTN, Old MA, Peripheral Venous Inufficiency, MSK: Degenerative Joint Disease, [...] GENERAL 3V OR MORE AP/TRUE AP/OTHER RT [1587141] Order #: [id number] CONSULT TO PHYSICAL THERAPY (AG) [1702239] Order #: [id number]: 1 DRAIN/INJECT LARGE JOINT/BURSA [[id number]] Order #: [id number] [] betamethasone acetate-betamethasone sodium phosphate 12 mg [...] stent placement- 2006 [Z95*INVALID FOR* Atherosclerosis of galena coronary artery of na*INVALID FOR* Asymptomatic cholelithiasis [...] Status:Closed by CRUZ SANCHEZ MD on 02/04/19 [facility] PROGRESSon 02-04-2019 PROGRESS HNO ID: [id number] Author: Cruz Sanchez Service: ? Author Type: Physician Type: Progress Notes Filed: 02/04/2019 4:40 PM Note Text: HISTORY OF PRESENT ILLNESS: Ezra Gonzalez was provided orthopedic evaluation regarding right shoulder complaints. 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 Cruz Sanchez MD [facility] OBSOLETEon 01-21-2019 OBSOLETE Refill (AGCARDPOB) EZRA GONZALEZ ([id number]) 1935 F Date Time Provider Department 01/21/19 [...] Myalgias Date Reviewed: 11/27/2018 Reviewed by: [facility] Hospital[facility]inesse Torres - Fully Assessed Reason [...] stent placement- 2006 [Z95*INVALID FOR* Atherosclerosis of galena coronary artery of na*INVALID FOR* Asymptomatic cholelithiasis [...] Status:Closed by RICKEY CHAVARRIA MD on 01/21/19 [facility]ON[facility] ([id number]) 1935 F Date Time Provider Department 01/21/19 [...] Patient next appointment: 04/02/2019 Patient Phone numbers: [phone] (home) Request is for script(s) to be [...] Myalgias Date Reviewed: 11/27/2018 Reviewed by: Vika ([facility]) Brian - Fully Assessed Reason [...] stent placement- 2006 [Z95*INVALID FOR* Atherosclerosis of galena coronary artery of na*INVALID FOR* Asymptomatic cholelithiasis [...] Encounter Status:Closed by JO PEREZ on 01/21/19 [facility] CNTHERAPYon 12-14-2018 CNTHERAPY OT/PT/Speech Visit ([facility]) EZRA GONZALEZ ([id number]) 1935 F Date Time Provider Department 12/14/18 11:00 AM ANOOP COLLAZO (JAZMYN) [facility] Date Time Provider Department Center 12/14/2018 11:00 AM [id number]-XNOPIKRANOOP COLLAZO*AKSTWP NOLAN LONG Reason for Visit: Difficulty [...] Myalgias Date Reviewed: 11/27/2018 Reviewed by: [facility] Brian - Fully Assessed Prescriptions [...] Jazmyn Hinson, JAZMYN 12/14/2018 4:[address] [facility] OUTPATIENT AUDIOLOGY [facility] AUDIOLOGIC EVALUATION REPORT 12/14/2018 Page 1 of 3 Patient: Ezra Gonzalez : 1935 Referred by: Jo Perez (PCP: Yazmin) Referred for: Evaluation of suspected change in hearing, tinnitus, or balance. Referral documented: In an order in Epic: OTHER ORDERS: : CONSULT TO AUDIOLOGY FOR DIAGNOSTIC TESTING [9003] (Order [id number]) Patient's major complaints: Progressively increasing difficulty in [...] --Pure tone audiometry using insert earphones demonstrates wcyv-ty-uoldjwoeoy severe level sensorineural type hearing loss, worse [...] up w/ referring physician. Report routed via [employer] inbox to Dr. Perez on 12/14/2018 -Re-evaluation [...] Audiogram can be also be viewed in [employer] SmartForms:Audiology: Audiometry. OAE and tympanometry results can be viewed in [employer] Scanned Documents. RIGHT EAR Hearing Sensitivity: 250-500HZ: WNL; 750-2000Hz:mild; 3000-8000Hz: moderate-severe SNHL Word Recognition Score (order by difficulty 10 word list): Excellent (90%) at slt amplified loudness (fair at conversational loudness) Tympanometry: Type A : Normal ME function. Otoacoustic Emissions results: 750-3000Hz: WNL; 4908-1465: reduced; 8000Hz: absent. LEFT EAR Hearing Sensitivity: 250-500HZ: WNL; 750-3000Hz: moderate; 6000-8000Hz: severe SNHL Word Recognition Score (order by difficulty 10 word list): Excellent (90%) at amplified loudness (poor at conversational loudness) Tympanometry: Type A : Normal ME function. Otoacoustic Emissions results: 750-1000Hz: absent; 3429-8394: reduced; 6000-8000Hz: absent. William Hinson. Frame Operator 12/14/2018 3:30 PM Ezra Gonzalez : [...] [facility] OBSOLETEon 12-14-2018 OBSOLETE Refill ([facility]) EZRA GONZALEZ ([id number]) 1935 F Date Time Provider Department 12/14/18 JO PEREZ [facility] During your visit today, we recorded the following information about you: Robert Diaz CMA 12/16/2018 1:00 PM Signed Patient called requesting the following refill. Pending Prescriptions Disp Refills RANITIDINE 150 MG TABLET 90 tablet 0 Sig: TAKE ONE TABLET BY MOUTH EVERY DAY SHAHEEN: Yes Last refill: 09/16/2018 Patient last appointment: 10/20/2018 Patient next appointment: 04/02/2019 Patient Phone numbers: [phone] (home) Request is for script(s) to be [...] Myalgias Date Reviewed: 11/27/2018 Reviewed by: Vika ([facility]) Brian - Fully Assessed Reason [...] stent placement- 2006 [Z95*INVALID FOR* Atherosclerosis of galena coronary artery of na*INVALID FOR* Asymptomatic cholelithiasis [...] Encounter Status:Closed by JO PEREZ on 12/16/18 [facility] PROGRESSon 12-14-2018 PROGRESS HNO ID: [id number] Author: Anoop (Jazmyn) JAZMYN Coll[place] Service: ? Author Type: Frame Operator Type: Progress Notes Filed: 12/14/2018 4:44 PM Note Text: [facility] OUTPATIENT AUD[facility]OLOGY [facility] AUDIOLOGIC EVALUATION REPORT 12/14/2018 Page 1 of 3 Patient: Ezra Gonzalez : 1935 Referred by: Jo Perez (PCP: Yazmin) Referred for: Evaluation of suspected change in hearing, tinnitus, or balance. Referral documented: In an order in Epic: OTHER ORDERS: : CONSULT TO AUDIOLOGY FOR DIAGNOSTIC TESTING [9003] (Order [id number]) Patient's major complaints: Progressively increasing difficulty in [...] --Pure tone audiometry using insert earphones demonstrates aywp-nx-jarbbubhmd severe level sensorineural type hearing loss, worse [...] up w/ referring physician. Report routed via [employer] inbox to Dr. Perez on 12/14/2018 -Re-evaluation [...] Audiogram can be also be viewed in [employer] Smart[employer]:Audiology: Audiometry. OAE and tympanometry results can be viewed in [facility] Scanned Documents. RIGHT EAR Hearing Sensitivity: 250-500HZ: WNL; 750-2000Hz:mild; 3000-8000Hz: moderate-severe SNHL Word Recognition Score (order by difficulty 10 word list): Excellent (90%) at slt amplified loudness (fair at conversational loudness) Tympanometry: Type A : Normal ME function. Otoacoustic Emissions results: 750-3000Hz: WNL; 0203-9249: reduced; 8000Hz: absent. LEFT EAR Hearing Sensitivity: 250-500HZ: WNL; 750-3000Hz: moderate; 6000-8000Hz: severe SNHL Word Recognition Score (order by difficulty 10 word list): Excellent (90%) at amplified loudness (poor at conversational loudness) Tympanometry: Type A : Normal ME function. Otoacoustic Emissions results: 750-1000Hz: absent; 2646-4050: reduced; 6000-8000Hz: absent. William Hinson. Frame Operator 12/14/2018 3:30 PM Ezra Gonzalez : [...] 11-27-2018 CNOV Office Visit (AGCARDHWW) EZRA GONZALEZ ([id number]) 1935 F Date Time Provider Department 11/27/18 11:00 AM RICKEY CHAVARRIA AGCARDHWW During your visit today, we recorded the following information about you: Pulse Respiration Blood pressure Weight 66/minute 18/minute 124/70 80.7 kg Height 1.575 m Vika Torres CMA 11/27/2018 11:00 AM Signed Patient has no cardiac complaints today. Vika Chavarria MD 11/27/2018 11:24 AM Signed PRIMARY CARE PHYSICIAN: Jo Perez MD [id number] [facility] [address] [place] [address] HISTORY OF PRESENT ILLNESS: Ms. Gonzalez is [...] again. 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 Ezra [...] of the time was spent in direct, puxw-dv-fovt, contact with the patient for management and counseling. 1. Essential hypertension - ICD9: 401.9, ICD10: I10 (primary diagnosis) 2. Obesity, Class I, BMI 30-34.9 - ICD9: 278.00, ICD10: E66.9 3. Mixed hyperlipidemia - ICD9: 272.2, ICD10: E78.2 4. Paroxysmal atrial fibrillation (HCC) - ICD9: 427.31, ICD10: I48.0 5. Chronic anticoagulation - ICD9: V58.61, ICD10: Z79.01 Rickey Chavarria M.D. [facility] Referring Provider: SELF [[id number]] Allergies As of Date: 11/27/2018 Noted Allergy Reaction CODEINE 03/20/2015 16 - Unknown CRESTOR (ROSUVASTATIN) 03/20/2015 14 - Other: See Comments Comments: Myalgias DEMEROL (MEPERIDINE) 03/20/2015 8 - GI Upset LATEX 03/20/2015 2 - Rash LIPITOR (ATORVASTATIN) 03/20/2015 14 - Other: See Comments Comments: Myalgias Date Reviewed: 11/27/2018 Reviewed by: [facility] Brian - Fully Assessed Reason for Visit: CARD Follow Up Annual [1232] Primary Visit Diagnosis:Essential hypertension [I10] Other Visit Diagnoses:Obesity, Class I, BMI 30-34.9 [E66.9] Mixed hyperlipidemia [E78.2] Paroxysmal atrial fibrillation (HCC) [I48.0] Chronic anticoagulation [Z79.01] Order(s):ECG B/O W INTERP (MED OFFICE) [ECG06] Order #: [id number] Prescriptions as of 11/27/2018 Sig: SIMVASTATIN 20 [...] stent placement- 2006 [Z95*INVALID FOR* Atherosclerosis of galena coronary artery of na*INVALID FOR* Asymptomatic cholelithiasis [...] has no cardiac complaints today. Vika Torres [facility] Disposition: Return in about 1 year (around 11/28/2019). Follow-up and Disposition History Recorded Letter Text Encounter Status:Closed by RICKEY CHAVARRIA MD on 11/27/18 [facility] PROGRESSon 11-27-2018 PROGRESS HNO ID: [id number] Author: Rickey Chavarria Service: ? Author Type: Physician Type: Progress Notes Filed: 11/27/2018 11:24 AM Note Text: PRIMARY CARE PHYSICIAN: Jo Perez MD [address] [facility] [address] [place] [address] HISTORY OF PRESENT ILLNESS: Ms. Gonzalez is [...] again. 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 Ezra [...] of the time was spent in direct, [id number], contact with the patient for management and counseling. 1. Essential hypertension - ICD9: 401.9, ICD10: I10 (primary diagnosis) 2. Obesity, Class I, BMI 30-34.9 - ICD9: 278.00, ICD10: E66.9 3. Mixed hyperlipidemia - ICD9: 272.2, ICD10: E78.2 4. Paroxysmal atrial fibrillation (HCC) - ICD9: 427.31, ICD10: I48.0 5. Chronic anticoagulation - ICD9: V58.61, ICD10: Z79.01 Rickey Chavarria M.D. [facility] Normal [facility] BONE DENSITY STUDY BY XRAY 7 [id number] 07-15-2017 BONE DENSITY STUDY BY XRAY [id number] Performed at [facility] APPROVED BY: Kemar Adams MD EXAMINATION: BONE MINERAL DENSITOMETRY (DEXA SCAN) EXAM DATE: 07/15/2017 09:43 CLINICAL INDICATION: 82-year-old postmenopausal female , follow-up osteoporosis screening. COMPARISON: DEXA scan 10/06/2013. DXA [place] v.13.4 examination is performed on the lumbar [...] is a trademark of the [employer], a WHO Collaborating [place]. This applies to men over 50 and [...] high risk for accelerated bone loss). Normal [facility] MAMMOGRAM SCREENING WITH CAD IF PERFORMEDon 06-27-2017 MAMMOGRAM SCREENING WITH CAD IF PERFORMED Performed at [facility] APPROVED BY: Lucas Garrido MD #[id number] - MAMMOGRAM SCREENING WITH CAD IF PERFORMEDBILATERAL DIGITAL SCREENING MAMMOGRAM WITH CAD WITH MEDIOLATERAL OBLIQUE CRANIOCAUDAL: 06/27/2017CLINICAL: Routine screening mammogram. Patient reports no breast problems. Comparison is made to exams dated: 07/22/2016 mammogram - [facility], 06/26/2016 mammogram, 06/09/2015 mammogram, and 04/01/2014 mammogram - [facility]. There are scattered fibroglandular elements [...] notified of the results. Lucas myers/maggi:06/27/2017 11:38:04 Solution Design Engineer: Loan Summers)(M), [facility] 1 or 2 Mammogram BI-RADS: 1 Negative Normal [facility] Otheron 02-03-2015 CONVERTED CLINICAL HISTORY OPERATIVE PROCEDURE: Colonoscopy CLINICAL INFORMATION: Screening [facility] CONVERTED ELECTRONIC SIGNATURE MO PATRICK M.D., PATHOLOGIST (Electronic signature on file) Final Signed Out: 02/03/2015 12:44 [facility] CONVERTED FINAL DIAGNOSIS FINAL DIAGNOSI S: A) COLON, ASCENDING, BIOPSIES - FRAGMENTS OF TUBULAR ADENOMA. B) COLON, RANDOM BIOPSIES - NO PATHOLOGIC ABNORMALITIES. [facility] CONVERTED GROSS DESCRIPTION GROSS DESCRIPTION: A) Ascending [...] SMS:[facility] CONVERTED ORDERING PROVIDER Ordering Provider: SHI LESTER [facility] Otheron 04-19-2010 CONVERTED ELECTRONIC SIGNATURE RAVINDER HAN M.D., PATHOLOGIST (Electronic signature on file) Final Signed Out: 04/19/2010 14:33 [facility] CONVERTED FINAL DIAGNOSIS FINAL DIAGNOSI S: RIGHT SHOULDER, EXCISION - BONE AND ATTACHED CARTILAGE WITH DEGENERATIVE CHANGES. SYNOVIUM WITH NONSPECIFIC REACTIVE CHANGES AND FOCAL MILD CHRONIC INFLAMMATION. SPECIMEN: SHOULDER [facility] CONVERTED GROSS DESCRIPTION GROSS DESCRIPTION: Rt shoulder tissue The container is labeled right shoulder tissue. Received are portions of pink-montague soft tissue and red-montague bone measuring 3 x 3 x 1 cm in aggregate. Sample of soft tissue is submitted in cassette 1, sample of bone is submitted in cassette 2 following decal. SMS/lrs MICROSCOPIC DESCRIPTION: Slides reviewed. 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 SPECIMEN: FEMORAL HEAD [facility] CONVERTED GROSS DESCRIPTION GROSS DESCRIPTION: Left femoral [...] MICROSCOPIC DESCRIPTION: Slides reviewed. SDS/gpl [facility] CONVERTED ORDERING PROVIDER Ordering Provider: CLOTILDE DOSS [facility] Thyroidon 08-02-2009 TSH Qn KVNG TYLER M.D., PATHOLOGIST (Electronic signature on file) Final Signed Out: 08/02/2009 14:47 [facility] Cardiacon 05-11-2001 Cholesterol [Mass/Vol] Ordering Provider : SAE FLANAGAN [facility] Otheron 05-11-2001 CONVERTED ELECTRONIC SIGNATURE MICHAEL HAWTHORNE M.D., PATHOLOGIST (Electronic signature on file) Final Signed Out: 05/11/2001 11:39 [facility] CONVERTED FINAL DIAGNOSIS TISSUE, REMOVE D AT RELEASE OF RIGHT RING FINGER - FIBROCOLLAGENOUS TISSUE WITH FOCAL FIBROBLASTIC REACTION AND FOCAL MIXOID CHANGE. ATTACHED SMALL AMOUNT OF TISSUE CONSISTENT WITH SYNOVIUM. [facility] Vital Signs Date Time Vital Sign Value Performing Clinician Facility 11-22-2024 07:12-0400 Body height 160.[address] Alexandra Hagen MD Work Phone: 1(224)443-725715 [place] [address] 11-22-2024 07:12-0400 Body mass index (BMI) [Ratio] 30.8 kg/m2 Dr. Alexandra Hagen MD Work Phone: 3(246)608-208515 [place] [address] 11-22-2024 07:12-0400 Body weight 78.[address] Alexandra Hagen MD Work Phone: 5(117)457-141615 [place] [address] 11-22-2024 07:12-0400 Diastolic blood pressure 80 mm[Hg] Dr. Alexandra Hagen MD Work Phone: 3(658)529-896715 [place] [address] 11-22-2024 07:12-0400 Heart rate 84 /min Dr. Alexandra Hagen MD Work Phone: 5(802)156-814215 [place] [address] 11-22-2024 07:12-0400 Respiratory rate 20 /min Dr. Alexandra Hagen MD Work Phone: 7(240)775-195115 [place] [address] 11-22-2024 07:12-0400 SaO2% (BldA) [Mass fraction] 95 % Dr. Alexandra Hagen MD Work Phone: 1(268)397-936915 [place] [address] 11-22-2024 07:12-0400 Systolic blood pressure 125 mm[Hg] Dr. Alexandra Hagen MD Work Phone: 9(024)709-406815 [place] [address] 09-13-2024 14:00-0400 Body height 160.[address] Alexandra Hagen MD Work Phone: 2(912)215-173915 [place] [address] 09-13-2024 14:00-0400 Body mass index (BMI) [Ratio] 30.7 kg/m2 Dr. Alexandra Hagen MD Work Phone: 4(939)748-172215 [place] [address] 09-13-2024 14:00-0400 Body temperature 92.6 [degF] Dr. Alexandra Hagen MD Work Phone: 2(384)199-818315 [place] [address] 09-13-2024 14:00-0400 Body weight 78.[address] Alexandra Hagen MD Work Phone: [facility] 09-13-2024 14:00-0400 Diastolic blood pressure 79 mm[Hg] Dr. Alexandra Hagen MD Work Phone: 1(214)206-782136 [place] [address] 09-13-2024 14:00-0400 Heart rate 83 /min Dr. Alexandra Hagen MD Work Phone: 6(799)441-462615 [place] [address] 09-13-2024 14:00-0400 Respiratory rate 17 /min Dr. Alexandra Hagen MD Work Phone: 3(597)951-798315 [place] [address] 09-13-2024 14:00-0400 SaO2% (BldA) [Mass fraction] 97 % Dr. Alexandra Hagen MD Work Phone: 7(640)194-607815 [place] [address] 09-13-2024 14:00-0400 Systolic blood pressure 126 mm[Hg] Dr. Alexandra Hagen MD Work Phone: 4(115)230-094215 [place] [address] 09-11-2024 13:55-0400 Body mass index (BMI) [Ratio] 30.3 kg/m2 Dr. Alexandra Hagen MD Work Phone: 0(820)697-164515 [place] [address] 09-11-2024 09:09-0400 Body temperature 97.8 [degF] Dr. Alexandra Hagen MD Work Phone: 1(142)794-688215 [place] [address] 09-11-2024 09:09-0400 Diastolic blood pressure 85 mm[Hg] Dr. Alexandra Hagen MD Work Phone: 8(128)892-862015 [place] [address] 09-11-2024 09:09-0400 Heart rate 84 /min Dr. Alexandra Hagen MD Work Phone: 8(609)032-605115 [place] [address] 09-11-2024 09:09-0400 Respiratory rate 18 /min Dr. Alexandra Hagen MD Work Phone: 4(218)418-203915 [place] [address] 09-11-2024 09:09-0400 SaO2% (BldA) [Mass fraction] 98 % Dr. Alexandra Hagen MD Work Phone: 3(347)302-108715 [place] [address] 09-11-2024 09:09-0400 Systolic blood pressure 174 mm[Hg] Dr. Alexandra Hagen MD Work Phone: [facility] 09-10-2024 17:17-0400 Body height 160.[address] Alexandra Hagen MD Work Phone: 2(792)573-800436 [place] [address] 09-10-2024 17:17-0400 Body weight 77.[address] Alexandra Hagen MD Work Phone: 3(495)344-744215 [place] [address] 09-10-2024 16:30-0400 Diastolic blood pressure 73 mm[Hg] Dr. Alexandra Hagen MD Work Phone: 3(753)169-685512 [address] 09-10-2024 16:30-0400 Heart rate 79 /min Dr. Alexandra Hagen MD Work Phone: 3(055)550-066815 [place] [address] 09-10-2024 16:30-0400 Respiratory rate 20 /min Dr. Alexandra Hagen MD Work Phone: 3(239)288-553615 [place] [address] 09-10-2024 16:30-0400 SaO2% (BldA) [Mass fraction] 93 % Dr. Alexandra Hagen MD Work Phone: 6(124)837-373515 [place] [address] 09-10-2024 16:30-0400 Systolic blood pressure 118 mm[Hg] Dr. Alexandra Hagen MD Work Phone: 4(505)723-731915 [place] [address] 09-10-2024 16:07-0400 Body temperature 98.3 [degF] Dr. Alexandra Hagen MD Work Phone: 9(744)300-106315 [place] [address] 09-10-2024 14:19-0400 Body height 160.[address] Alexandra Hagen MD Work Phone: 9(614)930-443315 [place] [address] 09-10-2024 14:19-0400 Body mass index (BMI) [Ratio] 26.5 kg/m2 Dr. Alexandra Hagen MD Work Phone: 1(686)129-380215 [place] [address] 09-10-2024 14:19-0400 Body weight 68.[address] Alexandra Hagen MD Work Phone: 4(255)819-016515 [place] [address] 09-08-2024 15:30-0400 Heart rate 64 /min Dr. Alexandra Hagen MD Work Phone: [facility] 09-08-2024 15:30-0400 Respiratory rate 23 /min Dr. Alexandra Hagen MD Work Phone: 3(195)749-755036 [place] [address] 09-08-2024 15:30-0400 SaO2% (BldA) [Mass fraction] 97 % Dr. Alexandra Hagen MD Work Phone: 8(900)711-909236 [place] [address] 09-08-2024 12:22-0400 Body height 160.[address] Alexandra Hagen MD Work Phone: 6(789)395-462036 [place] [address] 09-08-2024 12:22-0400 Body mass index (BMI) [Ratio] 33.5 kg/m2 Dr. Alexandra Hagen MD Work Phone: 8(030)610-214915 [place] [address] 09-08-2024 12:22-0400 Body temperature 98 [degF] Dr. Alexandra Hagen MD Work Phone: 6(396)989-328715 [place] [address] 09-08-2024 12:22-0400 Body weight 85.[address] Alexandra Hagen MD Work Phone: 8(457)074-420615 [place] [address] 09-08-2024 12:22-0400 Diastolic blood pressure 70 mm[Hg] Dr. Alexandra Hagen MD Work Phone: 5(121)314-275515 [place] [address] 09-08-2024 12:22-0400 Systolic blood pressure 131 mm[Hg] Dr. Alexandra Hagen MD Work Phone: 0(457)081-058436 [place] [address] 07-01-2024 10:38-0400 Body height 160.[address] Alexandra Hagen MD Work Phone: 5(950)497-615915 [place] [address] 07-01-2024 10:38-0400 Body mass index (BMI) [Ratio] 30.8 kg/m2 Dr. Alexandra Hagen MD Work Phone: 4(646)713-757015 [place] [address] 07-01-2024 10:38-0400 Body weight 78.[address] Alexandra Hagen MD Work Phone: 0(619)194-515036 [place] [address] 07-01-2024 10:38-0400 Diastolic blood pressure 85 mm[Hg] Dr. Alexandra Hagen MD Work Phone: [facility] 07-01-2024 10:38-0400 Heart rate 60 /min Dr. Alexandra Hagen MD Work Phone: [facility] 07-01-2024 10:38-0400 Respiratory rate 16 /min Dr. Alexandra Hagen MD Work Phone: 2(503)969-116736 [place] [address] 07-01-2024 10:38-0400 Systolic blood pressure 184 mm[Hg] Dr. Alexandra Hagen MD Work Phone: 2(732)537-643812 [address] 05-10-2024 14:35-0500 Body height 160.[address] Alexandra Hagen MD Work Phone: 6(663)699-067615 [place] [address] 05-10-2024 14:35-0500 Body mass index (BMI) [Ratio] 30.9 kg/m2 Dr. Alexandra Hagen MD Work Phone: 8(394)736-226915 [place] [address] 05-10-2024 14:35-0500 Body temperature 97.8 [degF] Dr. Alexandra Hagen MD Work Phone: 3(180)866-375412 [address] 05-10-2024 14:35-0500 Body weight 79.[address] Alexandra Hagen MD Work Phone: 0(713)966-807715 [place] [address] 05-10-2024 14:35-0500 Diastolic blood pressure 86 mm[Hg] Dr. Alexandra Hagen MD Work Phone: 8(490)023-404036 [place] [address] 05-10-2024 14:35-0500 Heart rate 75 /min Dr. Alexandra Hagen MD Work Phone: 1(186)959-037736 [place] [address] 05-10-2024 14:35-0500 Respiratory rate 16 /min Dr. Alexandra Hagen MD Work Phone: 1(902)814-412136 [place] [address] 05-10-2024 14:35-0500 SaO2% (BldA) [Mass fraction] 94 % Dr. Alexandra Hagen MD Work Phone: 2(202)946-221836 [place] [address] 05-10-2024 14:35-0500 Systolic blood pressure 140 mm[Hg] Dr. Alexandra Hagen MD Work Phone: [facility] 06-20-2023 11:10-0400 Diastolic blood pressure 92 mm[Hg] Sae Conde MD Work Phone: [facility] 06-20-2023 11:10-0400 Heart rate 88 /min Sae Conde MD Work Phone: [facility] 06-20-2023 11:10-0400 Systolic blood pressure 173 mm[Hg] Sae Conde MD Work Phone: [facility] 06-20-2023 05:34-0400 Body temperature 97.39 [degF] Sae Conde MD Work Phone: [facility] 06-20-2023 05:34-0400 Respiratory rate 20 /min Sae Conde MD Work Phone: [facility] 06-20-2023 05:34-0400 SaO2% (BldA) [Mass fraction] 95 % Sae Conde MD Work Phone: [facility] 06-17-2023 18:30-0400 Body height 160 cm Sae Conde MD Work Phone: [facility] 06-17-2023 18:30-0400 Body mass index (BMI) [Ratio] 30.83 kg/m2 Sae Conde MD Work Phone: [facility] 06-17-2023 18:30-0400 Body weight 78.93 kg Sae Conde MD Work Phone: [facility] 06-16-2023 11:02-0400 Body temperature 96.4 [degF] Dr. Rosemary Doran Work Phone: [facility] 06-16-2023 11:02-0400 Diastolic blood pressure 84 mm[Hg] Dr. Rosemary Doran Work Phone: [facility] 06-16-2023 11:02-0400 Heart rate 72 /min Dr. Rosemary Doran Work Phone: [facility] 06-16-2023 11:02-0400 Respiratory rate 16 /min Dr. Rosemary Doran Work Phone: [facility] 06-16-2023 11:02-0400 SaO2% (BldA) [Mass fraction] 96 % Dr. Rosemary Doran Work Phone: [facility] 06-16-2023 11:02-0400 Systolic blood pressure 157 mm[Hg] Dr. Rosemary Doran Work Phone: [facility] 06-16-2023 08:33-0400 Body height 160.[address] Rosemary Doran Work Phone: [facility] 06-16-2023 08:33-0400 Body mass index (BMI) [Ratio] 33.1 kg/m2 Dr. Rosemary Droan Work Phone: [facility] 06-16-2023 08:33-0400 Body weight 84.[address] Rosemary Doran Work Phone: [facility] 05-19-2023 11:21-0500 Body height 160.[address] Rosemary Doran Work Phone: [facility] 05-19-2023 11:21-0500 Body mass index (BMI) [Ratio] 31.6 kg/m2 Dr. Rosemary Doran Work Phone: [facility] 05-19-2023 11:21-0500 Body temperature 97.8 [degF] Dr. Rosemary Doran Work Phone: [facility] 05-19-2023 11:21-0500 Body weight 81.[address] Rosemary Doran Work Phone: [facility] 05-19-2023 11:21-0500 Diastolic blood pressure 90 mm[Hg] Dr. Rosemary Doran Work Phone: [facility] 05-19-2023 11:21-0500 Heart rate 88 /min Dr. Rosemary Doran Work Phone: [facility] 05-19-2023 11:21-0500 Respiratory rate 17 /min Dr. Rosemary Doran Work Phone: [facility] 05-19-2023 11:21-0500 SaO2% (BldA) [Mass fraction] 98 % Dr. Rosemary Doran Work Phone: [facility] 05-19-2023 11:21-0500 Systolic blood pressure 152 mm[Hg] Dr. Rosemary Doran Work Phone: [facility] 05-15-2023 09:01-0500 Body mass index (BMI) [Ratio] 31.6 kg/m2 Dr. Rosemary Doran Work Phone: [facility] 05-15-2023 09:01-0500 Body weight 81.[address] Rosemary Doran Work Phone: [facility] 05-15-2023 09:01-0500 Diastolic blood pressure 85 mm[Hg] Dr. Rosemary Doran Work Phone: [facility] 05-15-2023 09:01-0500 Heart rate 78 /min Dr. Rosemary Doran Work Phone: [facility] 05-15-2023 09:01-0500 Respiratory rate 18 /min Dr. Rosemary Doran Work Phone: [facility] 05-15-2023 09:01-0500 Systolic blood pressure 156 mm[Hg] Dr. Rosemary Doran Work Phone: [facility] 01-20-2023 08:05-0400 Body height 160.[address] Rosemary Doran Work Phone: [facility] 01-20-2023 08:05-0400 Body mass index (BMI) [Ratio] 32 kg/m2 Dr. Rosemary Doran Work Phone: [facility] 01-20-2023 08:05-0400 Body temperature 98 [degF] Dr. Rosemary Doran Work Phone: [facility] 01-20-2023 08:05-0400 Body weight 82.[address] Rosemary Doran Work Phone: [facility] 01-20-2023 08:05-0400 Diastolic blood pressure 90 mm[Hg] Dr. Rosemary Droan Work Phone: [facility] 01-20-2023 08:05-0400 Heart rate 88 /min Dr. Rosemary Doran Work Phone: [facility] 01-20-2023 08:05-0400 Respiratory rate 17 /min Dr. Rosemary Doran Work Phone: [facility] 01-20-2023 08:05-0400 SaO2% (BldA) [Mass fraction] 97 % Dr. Rosemary Doran Work Phone: [facility] 01-20-2023 08:05-0400 Systolic blood pressure 140 mm[Hg] Dr. Rsoemary Doran Work Phone: [facility] 12-28-2022 11:09-0400 Body temperature 97.8 [degF] Dr. Rosemary Doran Work Phone: [facility] 12-28-2022 11:09-0400 Diastolic blood pressure 79 mm[Hg] Dr. Rosemary Doran Work Phone: [facility] 12-28-2022 11:09-0400 Heart rate 84 /min Dr. Rosemary Doran Work Phone: [facility] 12-28-2022 11:09-0400 Respiratory rate 16 /min Dr. Rosemary Doran Work Phone: [facility] 12-28-2022 11:09-0400 SaO2% (BldA) [Mass fraction] 96 % Dr. Rosemary Doran Work Phone: [facility] 12-28-2022 11:09-0400 Systolic blood pressure 169 mm[Hg] Dr. Rosemary Doran Work Phone: [facility] 12-27-2022 19:16-0400 Body height 160.[address] Rosemary Doran Work Phone: [facility] 12-27-2022 19:16-0400 Body mass index (BMI) [Ratio] 32.1 kg/m2 Dr. Rosemary Doran Work Phone: [facility] 12-27-2022 19:16-0400 Body weight 82.[address] Rosemary Doran Work Phone: [facility] 12-05-2022 09:25-0400 Body temperature 98.2 [degF] Dr. Rosemary Doran Work Phone: [facility] 12-05-2022 09:25-0400 Body weight 82.[address] Rosemary Doran Work Phone: [facility] 12-05-2022 09:25-0400 Diastolic blood pressure 85 mm[Hg] Dr. Rosemary Doran Work Phone: [facility] 12-05-2022 09:25-0400 Heart rate 90 /min Dr. Rosemary Doran Work Phone: [facility] 12-05-2022 09:25-0400 SaO2% (BldA) [Mass fraction] 95 % Dr. Rosemary Doran Work Phone: [facility] 12-05-2022 09:25-0400 Systolic blood pressure 145 mm[Hg] Dr. Rosemary Doran Work Phone: [facility] 11-18-2022 11:24-0400 Diastolic blood pressure 82 mm[Hg] Dr. Rosemary Doran Work Phone: [facility] 11-18-2022 11:24-0400 Heart rate 76 /min Dr. Rosemary Doran Work Phone: [facility] 11-18-2022 11:24-0400 Respiratory rate 15 /min Dr. Rosemary Doarn Work Phone: [facility] 11-18-2022 11:24-0400 SaO2% (BldA) [Mass fraction] 98 % Dr. Rosemary Doran Work Phone: [facility] 11-18-2022 11:24-0400 Systolic blood pressure 137 mm[Hg] Dr. Rosemary Doran Work Phone: [facility] 11-18-2022 07:55-0400 Body height 160.[address] Rosemary Doran Work Phone: [facility] 11-18-2022 07:55-0400 Body mass index (BMI) [Ratio] 32.9 kg/m2 Dr. Rosemary Doran Work Phone: [facility] 11-18-2022 07:55-0400 Body weight 84.[address] Rosemary Doran Work Phone: [facility] 11-18-2022 07:50-0400 Body temperature 97.8 [degF] Dr. Rosemary Doran Work Phone: [facility] 11-15-2022 10:11-0400 Body mass index (BMI) [Ratio] 32.2 kg/m2 Dr. Rosemary Doran Work Phone: [facility] 11-15-2022 08:55-0400 Body temperature 97.7 [degF] Dr. Rosemary Doran Work Phone: [facility] 11-15-2022 08:55-0400 Diastolic blood pressure 78 mm[Hg] Dr. Rosemary Doran Work Phone: [facility] 11-15-2022 08:55-0400 Heart rate 68 /min Dr. Rosemary Doran Work Phone: [facility] 11-15-2022 08:55-0400 Respiratory rate 16 /min Dr. Rosemary Doran Work Phone: [facility] 11-15-2022 08:55-0400 SaO2% (BldA) [Mass fraction] 96 % Dr. Rosemary Doran Work Phone: [facility] 11-15-2022 08:55-0400 Systolic blood pressure 136 mm[Hg] Dr. Rosemary Doran Work Phone: [facility] 11-14-2022 13:12-0400 Body weight 82.[address] Rosemary Doran Work Phone: [facility] 11-14-2022 12:30-0400 Body temperature 97.6 [degF] Dr. Rosemary Doran Work Phone: [facility] 11-14-2022 12:30-0400 Diastolic blood pressure 101 mm[Hg] Dr. Rosemary Doran Work Phone: [facility] 11-14-2022 12:30-0400 Heart rate 64 /min Dr. Rosemary Doran Work Phone: [facility] 11-14-2022 12:30-0400 Respiratory rate 14 /min Dr. Rosemary Doran Work Phone: [facility] 11-14-2022 12:30-0400 SaO2% (BldA) [Mass fraction] 98 % Dr. Rosemary Doran Work Phone: [facility] 11-14-2022 12:30-0400 Systolic blood pressure 164 mm[Hg] Dr. Rosemary Doran Work Phone: [facility] 11-14-2022 11:02-0400 Body height 160.[address] Rosemary Doran Work Phone: [facility] 11-14-2022 11:02-0400 Body mass index (BMI) [Ratio] 33.7 kg/m2 Dr. Rosemary Doran Work Phone: [facility] 11-14-2022 11:02-0400 Body weight 86.[address] Rosemary Doran Work Phone: [facility] 10-15-2022 09:24-0400 Body height 160.[address] Rosemary Doran Work Phone: [facility] 10-15-2022 09:24-0400 Body mass index (BMI) [Ratio] 30.8 kg/m2 Dr. Rosemary Doran Work Phone: [facility] 10-15-2022 09:24-0400 Body weight 78.[address] Rosemary Doran Work Phone: [facility] 10-15-2022 09:24-0400 Diastolic blood pressure 87 mm[Hg] Dr. Rosemary Doran Work Phone: [facility] 10-15-2022 09:24-0400 Heart rate 73 /min Dr. Rosemary Doran Work Phone: [facility] 10-15-2022 09:24-0400 Respiratory rate 18 /min Dr. Rosemary Doran Work Phone: [facility] 10-15-2022 09:24-0400 Systolic blood pressure 149 mm[Hg] Dr. Rosemary Doran Work Phone: [facility] 09-18-2022 19:36-0400 Diastolic blood pressure 72 mm[Hg] Dr. Rosemary Doran Work Phone: [facility] 09-18-2022 19:36-0400 Systolic blood pressure 140 mm[Hg] Dr. Rosemary Doran Work Phone: [facility] 09-18-2022 08:05-0400 Body height 160.[address] Rosemary Doran Work Phone: [facility] 09-18-2022 08:05-0400 Body mass index (BMI) [Ratio] 31.8 kg/m2 Dr. Rosemary Doran Work Phone: [facility] 09-18-2022 08:05-0400 Body temperature 97.8 [degF] Dr. Rosemary Doran Work Phone: [facility] 09-18-2022 08:05-0400 Body weight 81.[address] Rosemary Doran Work Phone: [facility] 09-18-2022 08:05-0400 Heart rate 111 /min Dr. Rosemary Doran Work Phone: [facility] 09-18-2022 08:05-0400 Respiratory rate 17 /min Dr. Rosemary Doran Work Phone: [facility] 09-18-2022 08:05-0400 SaO2% (BldA) [Mass fraction] 99 % Dr. Rosemary Doran Work Phone: [facility] 09-08-2022 16:03-0400 Diastolic blood pressure 84 mm[Hg] Dr. Rosemary Doran Work Phone: [facility] 09-08-2022 16:03-0400 Heart rate 90 /min Dr. Rosemary Doran Work Phone: [facility] 09-08-2022 16:03-0400 Respiratory rate 20 /min Dr. Rosemary Doran Work Phone: [facility] 09-08-2022 16:03-0400 SaO2% (BldA) [Mass fraction] 97 % Dr. Rosemary Doran Work Phone: [facility] 09-08-2022 16:03-0400 Systolic blood pressure 157 mm[Hg] Dr. Rosemary Doran Work Phone: [facility] 09-08-2022 15:32-0400 Body mass index (BMI) [Ratio] 33.2 kg/m2 Dr. Rosemary Doran Work Phone: [facility] 09-08-2022 15:32-0400 Body weight [address] Rosemary Doran Work Phone: [facility] 09-08-2022 14:26-0400 Body temperature 96.8 [degF] Dr. Rosemary Doran Work Phone: [facility] 04-16-2022 14:26-0500 Body height 160.[address] Rosemary Doran Work Phone: [facility] 04-16-2022 14:26-0500 Body mass index (BMI) [Ratio] 30.6 kg/m2 Dr. Rosemary Doran Work Phone: [facility] 04-16-2022 14:26-0500 Body weight 78.[address] Rosemary Doran Work Phone: [facility] 04-16-2022 14:26-0500 Diastolic blood pressure 60 mm[Hg] Dr. Rosemary Doran Work Phone: [facility] 04-16-2022 14:26-0500 Heart rate 88 /min Dr. Rosemary Doran Work Phone: [facility] 04-16-2022 14:26-0500 Respiratory rate 18 /min Dr. Rosemary Doran Work Phone: [facility] 04-16-2022 14:26-0500 Systolic blood pressure 89 mm[Hg] Dr. Rosemary Doran Work Phone: [facility] 02-11-2022 02:02-0500 Diastolic blood pressure 82 mm[Hg] Dr. Rosemary Doran Work Phone: [facility] 02-11-2022 02:02-0500 Heart rate 74 /min Dr. Rosemary Doran Work Phone: [facility] 02-11-2022 02:02-0500 Respiratory rate 16 /min Dr. Rosemary Doran Work Phone: [facility] 02-11-2022 02:02-0500 SaO2% (BldA) [Mass fraction] 96 % Dr. Rosemary Doran Work Phone: [facility] 02-11-2022 02:02-0500 Systolic blood pressure 106 mm[Hg] Dr. Rosemary Doran Work Phone: [facility] 02-11-2022 00:07-0500 Body height 160.[address] Rosemary Doran Work Phone: [facility] Work Phone: 02-11-2022 00:07-0500 Body mass index (BMI) [Ratio] 33.1 kg/m2 Dr. Rosemary Doran Work Phone: [facility] 02-11-2022 00:07-0500 Body temperature 98.4 [degF] Dr. Rosemary Doran Work Phone: [facility] 02-11-2022 00:07-0500 Body weight 84.[address] Rosemary Doran Work Phone: [facility] 10-18-2021 10:26-0400 Body mass index (BMI) [Ratio] 33.1 kg/m2 Dr. Rosemary Doran Work Phone: [facility] Work Phone: 10-18-2021 10:26-0400 Body weight 84.[address] Rosemary Doran Work Phone: [facility] Work Phone: 10-18-2021 10:26-0400 Diastolic blood pressure 63 mm[Hg] Dr. Rosemary Doran Work Phone: [facility] Work Phone: 10-18-2021 10:26-0400 Heart rate 87 /min Dr. Rosemary Doran Work Phone: [facility] Work Phone: 10-18-2021 10:26-0400 Respiratory rate 20 /min Dr. Rosemary Doran Work Phone: [facility] Work Phone: 10-18-2021 10:26-0400 SaO2% (BldA) [Mass fraction] 96 % Dr. Rosemary Doran Work Phone: [facility] Work Phone: 10-18-2021 10:26-0400 Systolic blood pressure 101 mm[Hg] Dr. Rosemary Doran Work Phone: [facility] Work Phone: Encounters Encounter Date Encounter Type Care Provider Facility Start: 11-30-2024 ambulatory [facility] Facility: [facility] Start: 11-22-2024 End: 11-22-2024 Patient encounter procedure Yinka ZUNIGA -[place] Work Phone: Start: 11-22-2024 End: 11-22-[address] Alexandra Hagen MD Work Phone: -[facility] Start: 11-22-2024 End: 11-22-2024 ambulatory [facility] Facility:[facility] Start: 11-08-2024 ambulatory [facility] Facility: [facility] Start: 11-08-[address] Kvng [facility] Work Phone: Start: 10-25-2024 ambulatory [facility] Facility: [facility] Start: 10-25-[address] Kvng [facility] Work Phone: Start: 10-11-2024 ambulatory [facility] Facility: [facility] Start: 10-11-[address] Kvng [facility] Work Phone: Start: 10-04-2024 ambulatory [facility] Facility: [facility] Start: 10-04-2024 Registered Referred [facility]esar [facility] Work Phone: Start: 09-24-2024 ambulatory [facility]: [facility] Start: 09-24-2024 Registered Referred [facility] Work Phone: Start: 09-22-2024 ambulatory [facility] Facility: [facility] Start: 09-22-[address] Kvng [facility] Work Phone: Start: 09-17-2024 ambulatory Cesar Cole Facility:[facility] Start: 09-17-2024 Registered Referred [facility] Work Phone: Start: 09-13-2024 End: 09-13-[address] Anant Juarez MD -[facility] Work Phone: Start: 09-13-2024 End: 09-13-[address] Alexandra Hagen MD Work Phone: [facility] Work Phone: Start: 09-13-2024 End: 09-13-2024 ambulatory [facility] Start: 09-11-2024 Non-patient / Non-visit Dr. Richardson WHEELER [facility] Work Phone: Start: 09-10-2024 End: 09-11-2024 ambulatory Kvng Ochoa Facility:[facility] Start: 09-10-2024 End: 09-11-2024 Evaluation and management of inpatient Dr. Matthew Oro DO -Progressive Care Unit Work Phone: Start: 09-10-2024 End: 09-11-[address] Alexandra Hagen MD Work Phone: [facility] Work Phone: Start: 09-08-2024 End: 09-08-2024 Emergency department patient visit Dr. Alexandra Hagen MD Work Phone: -Emergency Department Work Phone: Start: 08-18-2024 End: 08-18-[address] Alexandra Hagen MD Work Phone: [facility] Work Phone: Start: 08-18-2024 End: 08-18-2024 Departed Referred [facility] Work Phone: Start: 08-18-2024 Registered Referred [facility] Work Phone: Start: 08-18-2024 End: 08-18-2024 ambulatory Cesar Cole Facility:[facility] Start: 07-19-2024 End: 07-19-[address] Alexandra Hagen MD Work Phone: [facility] Work Phone: Start: 07-19-2024 End: 07-19-2024 Departed Referred [facility] Work Phone: Start: 07-19-2024 End: 07-19-2024 ambulatory Cesar Cole Facility:[facility] Start: 07-01-2024 End: 07-01-[address] Cesar Cole MD -[facility] Work Phone: Start: 07-01-2024 End: 07-01-2024 ambulatory Aleaxndra Hagen Facility:[facility] Start: 06-16-2024 End: 06-16-[address] Alexandra Hagen MD Work Phone: [facility] Work Phone: Start: 06-16-2024 End: 06-16-[address]ng [facility] Work Phone: Start: 06-16-[address] Kvng leger MD [facility] Work Phone: Start: 06-16-2024 End: 06-16-2024 ambulatory Kvng MARTINEZ Facility:[facility] Start: 06-09-2024 End: 06-09-[address] Alexandra Hagen MD Work Phone: [facility] Work Phone: Start: 06-09-2024 End: 06-09-[address] [facility] Work Phone: Start: 06-09-2024 End: 06-09-2024 ambulatory Kvng MARTINEZ Facility:[facility] Start: 05-19-2024 End: 05-19-[address] Alexandra Hagen MD Work Phone: [facility] Work Phone: Start: 05-19-2024 End: 05-19-2024 Departed Referred [facility] Work Phone: Start: 05-19-[address] [facility] Work Phone: Start: 05-19-2024 End: 05-19-2024 ambulatory Cesar Cole Facility:[facility] Start: 05-12-2024 ambulatory Anant Cobian y:[facility] Start: 05-12-2024 Registered Referred Anant [facility] Work Phone: Start: 05-10-2024 End: 05-10-[address] Anant Juarez MD -[facility] Work Phone: Start: 05-10-2024 End: 05-10-2024 ambulatory Anant Juarez Facility:[facility] Start: 05-05-2024 End: 05-05-[address] Alexandra Hagen MD Work Phone: [facility] Work Phone: Start: 05-05-2024 End: 05-05-2024 Departed Referred [facility] Work Phone: Start: 05-05-2024 Registered Referred [facility] Work Phone: Start: 05-05-2024 End: 05-05-2024 ambulatory Cesar Cole Facility:[facility] Start: 04-28-2024 End: 04-28-[address] Alexandra Hagen MD Work Phone: [facility] Work Phone: Start: 04-28-2024 End: 04-28-[address] Kvng [facility] Work Phone: Start: 04-28-2024 End: 04-28-2024 ambulatory Kvng MARTINEZ Facility:[facility] Start: 04-14-2024 ambulatory Alexandra Hagen Facility: [facility] Start: 04-14-[address] Kvng [facility] Work Phone: Start: 04-09-2024 End: 04-09-[address] Kvng [facility] Work Phone: Start: 04-09-2024 End: 04-09-2024 ambulatory Alexandra S Jolliff Facility:[facility] Start: 04-06-2024 End: 04-06-[address] Kvng [facility] Work Phone: Start: 04-05-2024 End: 04-06-2024 ambulatory Alexandra S Jolliff Facility:[facility] Start: 04-05-[address] Kvng [facility] Work Phone: Start: 03-29-20[facility] Start: 03-29-[address] Kvng [facility] Work Phone: Start: 03-26-2024 ambulatory Kvng Ochoa OLS Facil ity:[facility] Start: 03-26-[address] Kvng [facility] Work Phone: Start: 03-25-2024 ambulatory Kvng Ochoa OLS Facil ity:[facility] Start: 03-25-[address] Kvng [facility] Work Phone: Start: 03-19-2024 ambulatory Alexandra S Jolliff Facility: [facility] Start: 03-19-[address] Kvng [facility] Work Phone: Start: 03-17-2024 ambulatory Alexandra S Jolliff Facility: [facility] Start: 03-17-[address] Kvng [facility] Work Phone: Start: 03-10-2024 ambulatory Alexandra S Jolliff Facility: [facility] Start: 03-10-[address] Kvng [facility] Work Phone: Start: 03-08-2024 ambulatory Alexandra S Jolliff Facility: [facility] Start: 03-08-[address] Kvng [facility] Work Phone: Start: 03-04-2024 ambulatory Alexandra S Jolliff Facility: [facility] Start: 03-04-[address] Kvng leger MD -[facility] Work Phone: Start: 02-05-2024 End: 02-05-[address] Kvng Ochoa MD -[facility] Work Phone: Start: 02-05-2024 End: 02-05-2024 ambulatory Alexandra S Jolliff Facility:[facility] Start: 01-08-2024 End: 01-08-2024 ambulatory Alexandra S Jolliff Facility:[facility] Start: 12-26-2023 End: 12-26-2023 ambulatory Alexandra S Jolliff Facility:[facility] Start: 12-19-2023 End: 12-19-2023 ambulatory Alexandra S Jolliff Facility:[facility] Start: 12-18-2023 End: 12-18-2023 ambulatory Alexandra S Jolliff Facility:[facility] Start: 06-30-2023 End: 06-30-[address] Rosemary Doran Work Phone: [facility] Work Phone: Start: 06-30-2023 End: 06-30-[address] Rosemary Doran Work Phone: [facility] Work Phone: Start: 06-16-2023 End: 06-20-2023 Evaluation and management of inpatient [facility] Start: 06-16-2023 End: 06-20-2023 Evaluation and management of inpatient Sae Conde MD Work Phone: [facility] Comment on above: Closed displaced fra cture of medial condyle of right humerus, initial encounter (Primary Dx) Start: 06-16-2023 Non-patient / Non-visit Dr. Slim Doran Work Phone: [facility] Start: 06-16-2023 End: 06-16-2023 Emergency department patient visit Dr. Rosemary Doran Work Phone: [facility]-Emergency Department Work Phone: Start: 05-30-2023 End: 05-30-[address] Rosemary Doran Work Phone: [facility] Work Phone: Start: 05-30-2023 End: 05-30-[address] Rosemary Doran Work Phone: [facility] Work Phone: Start: 05-19-2023 End: 05-19-[address] Rosemary Doran Work Phone: [facility] Work Phone: Start: 05-15-2023 End: 05-15-[address] Rosemary Doran Work Phone: [facility] Work Phone: Start: 05-12-2023 End: 05-12-[address] Rosemary Doran Work Phone: [facility] Work Phone: Start: 05-12-[address] Rosemary Doran Work Phone: [facility] Work Phone: Start: 05-01-2023 End: 05-01-[address] Rosemary Doran Work Phone: [facility] Work Phone: Start: 05-01-2023 End: 05-01-[address] Rosemary Doran Work Phone: [facility] Work Phone: Start: 04-17-2023 End: 04-17-[address] Rosemary Doran Work Phone: [facility] Work Phone: Start: 04-17-2023 End: 04-17-[address] Rosemary Doran Work Phone: [facility] Work Phone: Start: 04-17-[address] Rosemary Doran Work Phone: [facility] Work Phone: Start: 03-20-2023 End: 03-20-[address] Rosemary Doran Work Phone: [facility] Work Phone: Start: 02-21-2023 End: 02-21-[address] Rosemary Doran Work Phone: [facility] Work Phone: Start: 02-21-2023 End: 02-21-[address] Rosemary Doran Work Phone: [facility] Work Phone: Start: 01-20-2023 End: 01-20-[address] Rosemary Doran Work Phone: [facility] Work Phone: Start: 01-20-2023 End: 01-20-[address] Rosemary Doran Work Phone: [facility] Work Phone: Start: 01-20-2023 End: 01-20-[address] Rosemary Doran Work Phone: [facility] Work Phone: Start: 01-16-2023 End: 01-16-[address] Rosemary Doran Work Phone: [facility] Work Phone: Start: 01-16-2023 End: 01-16-[address] Rosemary Doran Work Phone: [facility] Work Phone: Start: 12-28-2022 Non-patient / Non-visit Dr. Slim Doran Work Phone: [facility] Work Phone: Start: 12-27-2022 Non-patient / Non-visit Dr. Slim Doran Work Phone: [facility] Work Phone: Start: 12-27-2022 End: 12-28-2022 Evaluation and management of inpatient Dr. Rosemary Doran Work Phone: [facility] Work Phone: Start: 12-27-2022 End: 12-28-[address] Rosemary Doran Work Phone: [facility] Work Phone: Start: 12-19-2022 End: 12-19-[address] Rosemary Doran Work Phone: [facility] Work Phone: Start: 12-19-2022 End: 12-19-[address] Rosemary Doran Work Phone: [facility] Work Phone: Start: 12-19-[address] Rosemary Doran Work Phone: [facility] Work Phone: Start: 12-09-2022 End: 12-09-[address] Rosemary Doran Work Phone: [facility] Work Phone: Start: 12-09-2022 End: 12-09-[address] Rosemary Doran Work Phone: [facility] Work Phone: Start: 12-09-[address] Rosemary Doran Work Phone: [facility] Work Phone: Start: 12-05-2022 End: 12-05-[address] Rosemary Doran Work Phone: [facility] Work Phone: Start: 11-20-2022 End: 11-20-[address] Rosemary Doran Work Phone: [facility] Work Phone: Start: 11-20-2022 End: 11-20-[address] Rosemary Doran Work Phone: [facility] Work Phone: Start: 11-20-[address] Rosemary Doran Work Phone: [facility] Work Phone: Start: 11-18-2022 End: 11-18-2022 Emergency department patient visit Dr. Rosemary Doran Work Phone: [facility]-Emergency Department Work Phone: Start: 11-15-2022 Non-patient / Non-visit Dr. Slim Doran Work Phone: [facility] Work Phone: Start: 11-14-2022 Non-patient / Non-visit Dr. Slim Doran Work Phone: [facility] Start: 11-14-2022 Non-patient / Non-visit Dr. Slim Doran Work Phone: [facility] Work Phone: Start: 11-14-2022 End: 11-15-2022 Evaluation and management of inpatient Dr. Rosemary Doran Work Phone: [facility]-Progressive Care Unit Work Phone: Start: 11-14-[address] Marcelo Doran Work Phone: [facility] Work Phone: Start: 10-23-2022 End: 10-23-[address] Rosemary Doran Work Phone: [facility] Work Phone: Start: 10-23-2022 End: 10-23-[address] Rosemary Doran Work Phone: [facility] Work Phone: Start: 10-22-2022 End: 10-22-[address] Rosemary Doran Work Phone: [facility] Work Phone: Start: 10-22-2022 End: 10-22-[address] Rosemary Doran Work Phone: [facility]-Physical Therapy Work Phone: Start: 10-22-[address] Sada Doran Work Phone: [facility] Work Phone: Start: 10-15-2022 End: 10-15-[address] Rosemary Doran Work Phone: [facility] Work Phone: Start: 09-26-2022 Non-patient / Non-visit Dr. Slim Doran Work Phone: [facility] Start: 09-26-2022 End: 09-26-[address] Rosemary Doran Work Phone: [facility] Work Phone: Start: 09-26-2022 End: 09-26-[address] Rosemary Doran Work Phone: [facility] Work Phone: Start: 09-18-2022 End: 09-18-[address] Rosemary Doran Work Phone: [facility] Work Phone: Start: 09-18-2022 End: 09-18-[address] Rosemary Doran Work Phone: [facility] Start: 09-13-2022 End: 09-13-[address] Rosemary Doran Work Phone: [facility]-Laboratory Start: 09-08-2022 End: 09-08-2022 Emergency department patient visit Dr. Rosemary Doran Work Phone: [facility]-Emergency Department Start: 09-06-2022 End: 09-06-[address] Rosemary Doran Work Phone: [facility] Start: 09-05-2022 End: 09-05-[address] Rosemary Doran Work Phone: [facility] Start: 08-08-2022 End: 08-08-[address] Rosemary Doran Work Phone: [facility] Start: 06-26-2022 End: 06-26-[address] Rosemary Doran Work Phone: [facility] Work Phone: Start: 06-26-2022 End: 06-26-[address] Rosemary Doran Work Phone: [facility] Start: 06-04-2022 End: 06-04-[address] Rosemary Droan Work Phone: [facility] Work Phone: Start: 06-04-2022 End: 06-04-[address] Rosemary Doran Work Phone: [facility] Start: 04-16-2022 End: 04-16-[address] Rosemary Doran Work Phone: [facility] Start: 02-11-2022 End: 02-11-2022 Emergency department patient visit Dr. Rosemary Doran Work Phone: [facility]-Emergency Department Start: 10-18-2021 End: 10-18-[address] Rosemary Doran Work Phone: [facility] Start: 10-12-2019 End: 10-12-2019 Refill Jo Perez Work Phone: [facility] Comment on above: Refill Request; Refi ll Request Start: 02-11-2018 Patient encounter ROSA ELENA Cai lity:[facility] Start: 01-05-2018 End: 01-05-2018 Patient encounter JO PEREZ Facility:[facility] Start: 07-21-2017 End: 07-21-2017 Patient encounter RICKEY CHAVARRIA Facility:[facility] Start: 07-15-2017 Patient encounter JO PEREZ Facility:[facility] Start: 07-07-2017 End: 07-07-2017 Patient encounter JO PEREZ Facility:[facility] Start: 06-27-2017 End: 06-27-2017 Patient encounter JO PEREZ Facility:[facility] Start: 06-11-2017 Patient encounter JO PEREZ Facility:[facility] Start: 02-01-2015 End: 02-01-2015 Patient encounter procedure Shi Lester Work Phone: [facility] Start: 02-01-2015 Results Only Shi ford Work Phone: [facility][1] Start: 04-17-2010 End: 04-17-2010 Patient encounter procedure Cruz Felicianott Work Phone: [facility] Start: 04-17-2010 Results Only Cruz Nguyen ippitt Work Phone: [facility][1] Start: 07-31-2009 End: 07-31-2009 Patient encounter procedure Clotilde Doss Work Phone: [facility] Start: 07-31-2009 Results Only Clotilde murary Work Phone: [facility][1] Start: 05-07-2001 End: 05-07-2001 Patient encounter procedure Sae Arnett Astrid Work Phone: [facility] Start: 05-07-2001 Results Only Sae Arnett Pap as Work Phone: [facility][1] Procedures Date Procedure Procedure Detail Performing Clinician [...] quantitative blood xcpt reagent strip Connie Perez [employer]ER INST[employer]ER - [employer]ECTIVE [employer]IE[employer] Work Phone: Start: 06-20-2023 Prothrombin time Merlenedi th Perez [employer] CO[employer]ER INSTALLER - DETECTIVE [employer]AU CHIEF Work Phone: Start: 06-19-2023 Glucose quantitative blood xcpt reagent strip Connie Perez [employer]ER INSTALLER - DETECTIVE [employer] CHIEF Work Phone: Start: 06-19-2023 Glucose quantitative blood xcpt reagent strip Connie Perez [employer]ER INSTALLER - DETECTIVE [employer]AU CHIEF Work Phone: Start: 06-19-2023 Glucose quantitative blood xcpt reagent strip Connie Perez [employer]ER INSTALLER - DETECTIVE [employer] CHIEF Work Phone: Start: 06-19-2023 Prothrombin time Meredi th Perez [employer]ER INSTALLER - DETECTIVE [employer]AU CHIEF Work Phone: Start: 06-19-2023 Glucose quantitative blood xcpt reagent strip Connie Perez [employer]ER INSTALLER - DETECTIVE [employer] CHIEF Work Phone: Start: 06-19-2023 Basic metabolic pane l calcium total Connie Perez [employer]ER INSTALLER - DETECTIVE [employer] CHIEF Work Phone: Start: 06-18-2023 Glucose quantitative blood [...] metabolic pane l calcium total Connieazam Perez [employer] CO[employer]ER INSTALLER - DETECTIVE [employer] CHIEF Work Phone: Start: 06-17-2023 Glucose quantitative blood [...] on above: Performed By: #### L [id number] ####Safety Net Maker: ALEXANDRA BUSTAMANTE ([id number])[facility] BLOOD [facility] C[facility] ([address] Start: 06-16-2023 End: 06-16-2023 Radex shoulder [...] 11-22-2024 Evaluation of diagno stic study results [facility] Start: 09-13-2024 Lamotrigine measurement [facility] Start: 09-13-2024 Measurement of substance [facility] Start: 09-11-2024 Patient discharge [facility] Start: 09-11-2024 Complete blood count [facility] Start: 09-10-2024 Following clinical p athway protocol [facility] Start: 09-10-2024 Transfusion of blood product [facility] Start: 09-10-2024 Aspiration precautions [facility] Start: 09-10-2024 Assessment of risk o f venous thromboembolism [facility] Start: 09-10-2024 Cardiac monitoring [facility] Start: 09-10-2024 Catheterization of vein [facility] Start: 09-10-2024 Consultation [facility] Start: 09-10-2024 Continuous pulse oximetry [facility] Start: 09-10-2024 Electroencephalogram [facility] Start: 09-10-2024 Elevation of head of bed [facility] Start: 09-10-2024 Exercises [facility] Start: 09-10-2024 Insertion of cathete r into peripheral vein [facility] Start: 09-10-2024 Notification of physician [facility] Start: 09-10-2024 Oxygen therapy [facility] Start: 09-10-2024 Patient referral to dietitian [facility] Start: 09-10-2024 Providing care accor ding to standard [facility] Start: 09-10-2024 Referral to occupati onal therapist [facility] Start: 09-10-2024 Referral to service [facility] Start: 09-10-2024 Speech therapy assessment [facility] Start: 09-10-2024 Telemedicine consult ation with patient [facility] Start: 09-10-2024 Tobacco use cessatio n education [facility] Start: 09-10-2024 Vital signs measurements [facility] Start: 09-10-2024 End: 09-10-2024 [facility] Start: 09-10-2024 Verification routine [facility] Start: 09-10-2024 MRI of brain without contrast Brain without Contrast [facility] Start: 09-10-2024 Admission procedure [facility] Start: 09-10-2024 [facility] Start: 09-10-2024 Bacteria identified in Urine by Culture Urine Culture [facility] Start: 09-10-2024 Urine culture [facility] Start: 09-10-2024 Oxygen therapy [facility] Start: 09-10-2024 [facility] Start: 09-08-2024 Lamotrigine measurement [facility] Start: 01-06-2024 Urine microalbumin profile DTA P,TDAP,TD (1 - Tdap) [facility] Comment on above: Postponed from 06/23 (Declined at this time) Start: 07-28-2023 ADVANCE DIRECTIVE DISCUSSION A DVANCE DIRECTIVE DISCUSSION [facility] Start: 06-16-2023 Application long arm splint shoulder hand APPLY LONG ARM SPLINT [facility] Start: 06-16-2023 [facility] Start: 03-31-2023 Medicare Advantage A nnual Wellness Visit Medicare Advantage Annual Wellness Visit [facility] Start: 01-20-2023 Serum immunofixation [facility] Start: 01-20-2023 Urine immunofixation [facility] Start: 12-28-2022 Patient discharge [facility] Start: 12-28-2022 [facility] Start: 12-27-2022 Following clinical p athway protocol [facility] Start: 12-27-2022 Assessment of risk o f venous thromboembolism [facility] Start: 12-27-2022 Catheterization of vein [facility] Start: 12-27-2022 Incentive spirometry [facility] Start: 12-27-2022 Inhalation therapy procedure [facility] Start: 12-27-2022 Insertion of cathete r into peripheral vein [facility] Start: 12-27-2022 Measuring intake and output [facility] Start: 12-27-2022 Neurological assessment [facility] Start: 12-27-2022 Providing care accor ding to standard [facility] Start: 12-27-2022 Provision of activit y privileges [facility] Start: 12-27-2022 Referral to occupati onal therapist [facility] Start: 12-27-2022 Referral to service [facility] Start: 12-27-2022 Speech therapy assessment [facility] Start: 12-27-2022 [facility] Start: 12-27-2022 Admission procedure [facility] Start: 11-15-2022 Patient discharge [facility] Start: 11-15-2022 Blood chemistry [facility] Start: 11-14-2022 Following clinical p athway protocol [facility] Start: 11-14-2022 Assessment of risk o f venous thromboembolism [facility] Start: 11-14-2022 Cardiac monitoring [facility] Start: 11-14-2022 Catheterization of vein [facility] Start: 11-14-2022 Continuous pulse oximetry [facility] Start: 11-14-2022 Elevation of head of bed [facility] Start: 11-14-2022 Exercises [facility] Start: 11-14-[address] anned interventions [facility] Start: 11-14-2022 Insertion of cathete r into peripheral vein [facility] Start: 11-14-2022 Measuring intake and output [facility] Start: 11-14-2022 MRI of brain without contrast Brain without Contrast [facility] Start: 11-14-2022 Notification of physician [facility] Start: 11-14-2022 Oxygen therapy [facility] Start: 11-14-2022 Patient referral to dietitian [facility] Start: 11-14-2022 Providing care accor ding to standard [facility] Start: 11-14-2022 Referral to occupati onal therapist [facility] Start: 11-14-2022 Referral to service [facility] Start: 11-14-2022 Speech therapy assessment [facility] Start: 11-14-2022 Tobacco use cessatio n education [facility] Start: 11-14-2022 [facility] Start: 11-14-2022 Verification routine [facility] Start: 11-14-2022 Admission procedure [facility] Start: 11-14-2022 Patient referral to dietitian [facility] Start: 09-18-2022 Patient referral [facility] Work Phone: Start: 09-18-2022 [place] and lambda light chains [facility] Start: 09-18-2022 Thiamine measurement [facility] Start: 09-17-2022 [facility] Start: 03-26-2020 Hepatitis B screening URINE ALBUMIN:CREATININE RATIO [facility] Start: 03-26-2020 Hepatitis B surface antibody level LDL CHOLESTEROL [facility] Start: 11-30-2019 Influenza vaccination INFLUENZA (#1) [facility] Start: 10-01-2019 [object Object] [facility]ETIC [facility] Start: 09-25-2019 HbA1c (Bld) [Mass fraction] HBA1C [facility] Start: 07-07-2018 Hepatitis C antibody , confirmatory test DILATED RETINAL EXAM [facility] Start: 07-20-2013 DTaP/Tdap/Td Vaccine s (1 - Tdap) DTaP/Tdap/Td Vaccines (1 - Tdap) [facility] Start: 12-05-2010 SHINGRIX VACCINE (2 of 3) CONTRERAS GRIX VACCINE (2 of 3) [facility] Start: 12-05-2010 Zoster Vaccines (2 of 3) Zoste r Vaccines (2 of 3) [facility] Start: 1995 RSV Immunization age d 60 or older (1 - 1-dose 60+ series) RSV Immunization aged 60 or older (1 - 1-dose 60+ series) [facility] Start: 1947 Depression Screening Depression Scre ening [facility] Start: 1935 Screening for osteoporosis Bone Dens ity Scan [facility] Albumin [Moles/volum e] in Serum or Plasma [facility] Albumin/Globulin ratio [facility] Anion gap in Serum or Plasma [facility] Anion gap measurement [facility] Ankle brachial pressure index [facility] Blood ammonia measurement [facility] Blood ammonia measurement [facility] BUN/Creatinine ratio [facility] BUN/Creatinine ratio [facility] Calcium [Mass/volume ] in Serum or Plasma [facility] Calcium [Mass/volume ] in Serum or Plasma [facility] Carbon dioxide, tota l [Moles/volume] in Central venous blood [facility] Carbon dioxide, tota l [Moles/volume] in Serum or Plasma [facility] Chloride [Moles/volu me] in Serum or Plasma [facility] Cholesterol [Mass/vo lume] in Serum or Plasma [facility] Cholesterol [Mass/vo lume] in Serum or Plasma [facility] Cholesterol in HDL [Mass/volume] in Serum or Plasma [facility] Cholesterol in HDL [Mass/volume] in Serum or Plasma [facility] Cholesterol in LDL [Mass/volume] in Serum or Plasma [facility] Creatinine [Mass/vol ume] in Serum or Plasma [facility] Creatinine [Moles/vo lume] in Serum or Plasma [facility] Electrophoresis: [id number] [facility] Electrophoresis: andrew ma globulin [facility] Erythrocyte mean cor puscular volume determination [facility] Globulin measurement [facility] Glucose [Mass/volume ] in Serum or Plasma [facility] Glucose [Mass/volume ] in Serum or Plasma [facility] Hematocrit [Volume F raction] of Blood [facility] Hematocrit [Volume F raction] of Blood [facility] Hemoglobin [Mass/vol ume] in Blood [facility] Hemoglobin [Mass/vol ume] in Blood [facility] IgA [Mass/volume] in Serum or Plasma [facility] IgG [Mass/volume] in Serum or Plasma [facility] IgM [Mass/volume] in Serum or Plasma [facility] [place]/lambda light c nat ratio [facility] Lambda light chains. free [Mass/volume] in Serum or Plasma [facility] Lamotrigine measurement [facility] Leukocytes [#/volume ] in Blood [facility] Leukocytes [#/volume ] in Blood [facility] Low density lipoprot ein cholesterol measurement [facility] Mean corpuscular hem oglobin concentration determination [facility] Mean corpuscular hem oglobin concentration determination [facility] Mean corpuscular hem oglobin determination [facility] Mean corpuscular hem oglobin determination [facility] Measurement of renal function [facility] Measurement of renal function [facility] MR Cervical spine [facility] MR Lumbar spine [facility] Neutrophil count [facility] Neutrophil percent differential count [facility] Patient Education [facility] Work Phone: Patient referral [facility] Work Phone: Platelets [#/volume] in Blood [facility] Platelets [#/volume] in Blood [facility] Potassium [Moles/vol ume] in Serum or Plasma [facility] Potassium measurement [facility] Protein electrophore sis panel - Serum or Plasma [facility] Red blood cell count [facility] Red blood cell count [facility] Red cell distributio n width determination [facility] Red cell distributio n width determination [facility] Serum chloride measurement [facility] Serum protein electrophoresis [facility] Sodium [Moles/volume ] in Serum or Plasma [facility] Sodium measurement [facility] Total cholesterol:HD L ratio measurement [facility] Triglycerides measurement [facility] Triglycerides measurement [facility] Troponin T.cardiac [Mass/volume] in Serum or Plasma by High sensitivity method [facility] Troponin T.cardiac [Mass/volume] in Serum or Plasma by High sensitivity method [facility] Urea nitrogen [Mass/ volume] in Serum or Plasma [facility] Urea nitrogen [Mass/ volume] in Serum or Plasma [facility] Urine culture Urine Culture [facility] Urine kappa light ch ain measurement [facility] [place] Carotid arteries [facility] VLDL cholesterol measurement [facility] VLDL cholesterol measurement [facility] Immunizations Immunization Date Immunization Notes Care Provider Fa cility 06-02-2020 Covid (Moderna) Dr. Rosemary mixon Work Phone: [facility] 05-05-2020 Covid (Moderna) Dr. Rosemary mixon Work Phone: [facility] 04-27-2019 influenza, high dose seasonal, preservative-free Allia Rashida [facility] 01-05-2018 influenza, high dose seasonal, preservative-free Jo Perez [facility] 12-12-2014 influenza, seasonal, injectable Allia Rashida [facility] 06-15-2014 pneumococcal conjuga te vaccine, 13 valent Allia Rashida [facility] 12-06-2013 influenza, seasonal, injectable Allia Rashida [facility] 07-19-2013 tetanus and diphther ia toxoids, adsorbed, preservative free, for adult use (2 Lf of tetanus toxoid and 2 Lf of diphtheria toxoid) Jo Perez [facility] 01-25-2013 influenza, seasonal, injectable Allia Rashida [facility] 01-13-2012 influenza, seasonal, injectable Alexia Rashida [facility] 02-11-2011 influenza, seasonal, injectable Allia Rashida [facility] 10-10-2010 zoster vaccine, live Jo Martinez [facility] 03-31-2006 pneumococcal polysaccharide vaccine, 23 valent [facility] Payers Date Payer Category Payer Self-pay [id number] 2023 Medicare [employer] MEDICARE UHC AARP MEDICARE ADVANTAGE [id number] 2023-Present [phone] [address] [address] [place] [address] Medicare HMO [id number] 2023 Unknown [id number] 2005 Unknown [id number] 1.2.840.903072.1.13.159.2.7.3 .099752.315 1935 Unknown [id number] 2.16.840.1.121553.3.579.2.278 1935 Unknown [id number] 2.16.840.1.993671.3.579.2.278 1935 Unknown [id number] 2.16840.1.960049.3.579.2.278 1935 Unknown [id number] 2.16.840.1.755832.3.579.2.278 1935 Unknown [id number] 2.16.840.1.029886.3.579.2.278 1935 Unknown [id number] 2.16.840.1.261164.3.579.2.278 1935 Unknown [id number] 2.16.840.1.247627.3.579.2.278 Medicare MEDICARE PART A B [id number] Unknown [id number] Unknown [id number] 2.16.840.1.163458.3.579.2.462 Unknown [id number] 2.16.840.1.765892.3.579.2.462 Unknown [id number] 2.16.840.1.354411.3.579.2.462 Unknown [id number] 2.16840.1.795269.3.579.2.462 Unknown [id number] 2.16.840.1.944282.3.579.2.462 Unknown [id number] 2.16.840.1.424123.3.579.2.462 Unknown [id number] 2.16.840.1.429062.3.579.2.462 Unknown [id number] 2.840.1.223440.3.579.2.462 Unknown [id number] 2.840.1.237859.3.579.2.462 Unknown [id number] 2.840.1.392465.3.579.2.462 Unknown [id number] 2.840.1.757013.3.579.2.462 Unknown [id number] 2.840.1.852734.3.579.2.462 Unknown [id number] 2.840.1.798562.3.579.2.462 Unknown [id number] 2.840.1.500770.3.579.2.462 Unknown [id number] 2.840.1.434210.3.579.2.462 Unknown [id number] 2.840.1.274993.3.579.2.462 Unknown [id number] 2.840.1.734945.3.579.2.462 Unknown [id number] 2.840.1.699453.3.579.2.462 Unknown [id number] 2.840.1.493415.3.579.2.462 Unknown [id number] 2.840.1.788341.3.579.2.462 Unknown [id number] 2.840.1.010952.3.579.2.462 Unknown [id number] 2.840.1.969792.3.579.2.462 Unknown [id number] 2.16.840.1.690991.3.579.2.462 Unknown [id number] 2.16.840.1.669062.3.579.2.462 Unknown [id number] 2.16.840.1.771292.3.579.2.462 Unknown [id number] 2.16.840.1.330851.3.579.2.462 Unknown [id number] 2.16.840.1.131747.3.579.2.462 Unknown [id number] 2.16.840.1.942063.3.579.2.462 Unknown [id number] 2.840.1.993814.3.579.2.462 Unknown [id number] 2.840.1.355505.3.579.2.462 Unknown [id number] 2.840.1.056142.3.579.2.462 Unknown [id number] 2.840.1.664894.3.579.2.462 Unknown [id number] 2.840.1.196950.3.579.2.462 Unknown [id number] 2.840.1.687625.3.579.2.462 Unknown [id number] 2.840.1.443622.3.579.2.462 Unknown [id number] 2.840.1.466822.3.579.2.462 Unknown [id number] 2.16.840.1.015266.3.579.2.462 Unknown [id number] 2.16.840.1.961490.3.579.2.462 Unknown [id number] 2.16.840.1.546456.3.579.2.462 Unknown [id number] 2.16.840.1.783854.3.579.2.462 Unknown [id number] 2.16840.1.356156.3.579.2.462 Unknown [id number] 2.16.840.1.250986.3.579.2.462 Unknown [id number] 2.16.840.1.868946.3.579.2.462 Social History Date Type Detail Facility Start: 05-13-2019 End: 09-11-2024 Tobacco smoking status NHIS Former smoker [facility] End: 03-20-2008 History of tobacco use Current smoker [facility] End: 03-20-2008 History of tobacco use Cigarette Smoker [facility] Start: 05-13-2019 End: 06-17-2023 Cigarettes smoked current (pack per day) - Reported [facility] Start: 05-13-2019 End: 06-18-2023 Tobacco use and exposure Never used [facility] Start: 05-13-2019 Alcohol intake 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 alcohol (finding) [facility] Start: 1935 Sex Assigned At Not on file [facility] Exposure to SARS-CoV -2 (event) Not sure [facility] Start: 02-11-2022 End: 06-16-2023 Tobacco smoking status NHIS Unknown if ever smoked [facility] Start: 04-19-2020 Rare [facility] Start: 04-19-2020 None [facility] Start: 04-19-2020 Spouse/ Signif icant Other [facility] Start: 08-11-2020 Non-smoker [facility] Start: 1935 Sex Assigned At Female [facility] Start: 06-18-2023 Tobacco smoking stat us NHIS Never smoked tobacco [facility] Start: 06-17-2023 End: 06-18-2023 [facility] A and A [employer] Service Has the [employer], [employer], or water Hythiam threatened to shut off services in your home in past 12Mo No [facility] How often to you hav e a drink containing alcohol? Never [facility] How many standard drinks containing alcohol do you have on a typical day? Patient does not drink [facility] (I/We) worried wheth er (my/our) food would run out before (I/we) got money to buy more. Never true [facility] Start: 06-04-2024 End: 07-20-2024 Sex Female (finding) [facility] Medical Equipment Procedure Code Equipment Code [...] instructed [employer] Cancellous 30cc 1-8 - [id number] - [id number] Start: 06-18-2023 Plate Hum Dist 2.7/3.5 83953_imp Start: 06-18-2023 Plate Va Olcrn 2.7/3.5 2h R - [id number]_imp Start: 06-18-2023 Plate Va M-D-Hum 2.7/3.5 1h L - [id number]_imp Start: 06-18-2023 Screw Lck Va 2.2l19p-H T8 Rcs - [id number]_imp Start: 06-18-2023 Screw Lck Va 2.7x58 S-T T8 Rcs - [id number]_imp Start: 06-18-2023 Screw Lck Va 2.8v00t-F T8 Rcs - [id number]_imp Start: 06-18-2023 Screw Lck Va 2.7a31o-N T8 Rcs - [id number] 83967_imp Start: 06-18-2023 Screw Lck Va 2.5a48t-Q T8 Rcs - [id number] 83968_imp Start: 06-18-2023 Screw Lck Va 2.7x50 S-T T8 Rcs - [id number]_imp Start: 06-18-2023 Screw Crtx 3.5x22mm S-T - [id number]_imp Start: 06-18-2023 Screw Crtx 3.5x26mm S-T - [id number]_imp Start: 06-18-2023 Screw Lck Va 2.8z83v-G T8 Rcs - [id number] 83975_imp Start: 06-18-2023 Screw Lck Va 2.6c12j-X T8 Rcs - [id number]_imp Start: 06-18-2023 Screw Lck Va 2.7x56 S-T T8 Rcs - [id number] 83956_imp Start: 06-18-2023 Screw Crtx 3.5x28mm S-T - [id number] 83957_imp Start: 06-18-2023 Screw Crtx 3.5x30mm S-T - [id number] 83958_imp Start: 06-18-2023 Screw Lck Va 2.4o29v-V T8 Rcs - [id number] 83959_imp Start: 06-18-2023 Screw Lck Va 2.2h39c-S T8 Rcs - [id number] 83961_imp Start: 06-18-2023 Goals Date Patient Goal Desired Activity /State Functional Status Date Assessment Result Facility 09-11-2024 Functional status Ambulates [facility] Work Phone: 12-28-2022 Functional status Ambulates [facility] Work Phone: 11-15-2022 Functional status Chair [facility] Work Phone: Mental Status Date Assessment Result Facility 09-11-2024 Cognitive function Voice/Name [facility] Work Phone: 09-10-2024 Cognitive function Voice/Name [facility] Work Phone: 09-08-2024 Cognitive function Voice/Name [facility] Work Phone: 12-28-2022 Cognitive function Voice/Name [facility] Work Phone: 11-18-2022 Cognitive function Level Of Cons ciousness Awake;Alert;Appropriate [facility] Work Phone: 11-15-2022 Cognitive function Appropriate;Cooperativ e [facility] Work Phone: 11-14-2022 Cognitive function Voice/Name [facility] Work Phone: 11-14-2022 Cognitive function Voice/Name [facility] Work Phone: 09-08-2022 Cognitive function Awake;Alert;A ppropriate;Follow s Commands [facility] Work Phone: 02-11-2022 Cognitive function Awake;Alert;Appropriat e [facility] Work Phone: Clinical Notes 02-14-2007 to 09-11-2024 Note Date & Type Note Facility 09-11-2024 Discharge summary [facility] 09-11-2024 Procedure note [facility] 09-11-2024 Discharge summary [facility] 09-11-2024 Discharge summary Note Date/Time September 11, 2024 2:40pm [facility] Medical Records Department [address] [place] [address] Instructions for Home/Discharge Instructions 09/11/24 1214 MR#: [id number] Acct: [id number] Name: EZRA GONZALEZ Rep #:[id number] : 1935 89 From: Matthew carbajal DO [...] Thurman DO; Ashu Leonard MD ~ Signed [facility] Work Phone: 1(718) 503-432606-14-2025 Discharge summary Author [facility] Note Date/Time September 11, 2024 3:14 pm [facility] Medical Records Department [address] [place] [address] Discharge Summary 09/11/24 1214 MR#: [id number] Acct: [id number] Name: EZRA GONZALEZ Rep #:[id number] : 1935 89 From: Matthew carbajal DO PCP: Dr. Kvng Ochoa, DO Status:ADM MARIELOS Location: [place] [address]- 1 Providers Date of Admission: 09/10/24 Date [...] is an 89-year-old female who presented to [facility] ED on 09/10/2024 with dysarthria. 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 Kvng Ochoa DO ~* Signed [facility] Work Phone: 1(293) 593-956006-14-2025 Progress note Author Lenin Tamez [facility] Note Date/Time September 11, 2024 10:4 1am [facility] Medical Records Department [address] [place] [address] Progress Note - Neurology 09/11/24 1035 MR#: [id number] Acct: [id number] Name: EZRA GONZALEZ Rep #:[id number] : 1935 89 From: Lenin Morel PCP: Dr. Kvng Ochoa, DO Status:ADM MARIELOS Location: [place] [address] Assessment and Plan: Neuro Assessment/Plan Telestroke (Audio/Video Encounter) 89 y/o woman with h/o DM, HTN, Afib on coumadin (INR 2 days ago was 2.9 and 2.4 at [place]) and seizure on lamictal (had last GTC on Friday) p/w transient dysarthria. History is obtained from patient. On my exam, NIHSS-0 and patient reports feeling better. She follows with Dr. Juarez with neurology. CT head- no acute intracranial process. CTA- no LVO with b/l ICA 60% and diffuse narrowing of left HIDES AND SKINS COLORER. MRI brain - no acute stroke. LDL-100 Diagnosis: TIA Plan: Continue coumadin and statin. Check A1c. Follow up EEG. Continue lamictal.Follow up with neurology as an outpatient. OT/PT/ANIMAL NURSE. Sign off for now and please call [...] ICA 60% and diffuse narrowing of left HIDES AND SKINS COLORER. MRI brain - no acute stroke. Today, [...] (Auto) 72.3 H, Lymph % (Auto) 16.6 L,[place] % (Auto) 9.1, Eos % (Auto) 1.2, [...] Clarity Clear, Urine pH 5.0, Ur Specific [place] 1.010, Urine Protein 30 H, Urine Glucose [...] Catch Urine Culture - Preliminary GNR lactose mortgage closer Radiography Diagnostic Testing: Radiology Impression Brain CT 09/10/24 13:55 IMPRESSION: CHRONIC CHANGES. NO ACUTE FINDINGS. Red Alert: Chronic changes. The critical information above was relayed directly by me by telephone to Teri Garcia on 09/10/2024 at 2:05 pm with readback verification. Reading Location: [id number] Head/Neck CTA 09/10/24 13:55 IMPRESSION: Calcific plaque [...] 3:01 pm with readback verification. Reading Location: [id number] Brain MRI 09/10/24 16:07 IMPRESSION: Atrophy and mild microvascular changes Reading Location: [facility] Rhythm Strip Rhythm Strip: A-fib Rate: 75 [...] and with change in RN caregiver. Freq: [id number] Protocol: Activity Type Activity Date Activity User E-sign Co-sign Detail Recorded Client Recorded Date Recorded By Document 09/11/24 09:08 YOVANY [id number] 09/11/24 09:08 YOVANY 09/11/24 09:08 NIH Stroke [...] Cosigner Signature (if applicable): CC: ~ Signed [facility] Work Phone: 1(140) 477-372006-14-2025 [facility] Medical Records Department [address] [place] [address] Discharge Summary 09/11/24 1214 MR#: [id number] Acct: [id number] Name: EZRA GONZALEZ Rep #: [id number] : 1935 89 From: Matthew Oro DO PCP: Dr. Kvng Ochoa, DO Status:ADM MARIELOS Location: [place] [address] Providers Date of Admission: 09/10/24 Date of [...] is an 89-year-old female who presented to [facility] ED on 09/10/2024 with dysarthria. Short [...] and non- distended Anastasia (more content not included)...[facility]06-14-2025 Progress note [facility] Medical Records Department [address] [place] [address] Progress Note - Neurology 09/11/24 1035 MR#: [id number] Acct: [id number] Name: EZRA GONZALEZ Rep #:[id number] : 1935 89 From: Lenin Morel PCP: Dr. Kvng Ochoa, DO Status:ADM MARIELOS Location: [place] [address] Assessment and Plan: Neuro Assessment/Plan Telestroke (Audio/Video Encounter) 89 y/o woman with h/o DM, HTN, Afib on coumadin (INR 2 days ago was 2.9 and 2.4 at [place]) and seizure on lamictal (had last GTC on Friday) p/w transient dysarthria. History is obtained from patient. On my exam, NIHSS-0 and patient reports feeling better. She follows with Dr. Juarez with neurology. CT head- no acute intracranial process. CTA- no LVO with b/l ICA 60% and diffuse narrowing of left HIDES AND SKINS COLORER. MRI brain - no acute stroke. LDL-100 Diagnosis: TIA Plan: Continue coumadin and statin. Check A1c. Follow up EEG. Continue lamictal.Follow up with neurology as an outpatient. OT/PT/ANIMAL NURSE. Sign off for now and please call [...] ICA 60% and diffuse narrowing of left HIDES AND SKINS COLORER. MRI brain - no acute stroke. Today, [...] %(Auto) 72.3 H, Lymph % (Auto) 16.6 L,[place] % (Auto) 9.1, Eos % (Auto) 1.2, [...] Clarity Clear, Urine pH 5.0, Ur Specific [place] 1.010, Urine Protein 30 H, Urine Glucose [...] Catch Urine Culture - Preliminary GNR lactose mortgage closer Radiography Diagnostic Testing: Radiology Impression Brain CT 09/10/24 13:55 IMPRESSION: CHRONIC CHANGES. NO ACUTE FINDINGS. Red Alert: Chronic changes. The critical information above was relayed directly by me by telephone to Teri Garcia on 09/10/2024 at 2:05 pm with readback verification. Reading Location: [id number] Head/Neck CTA 09/10/24 13:55 IMPRESSION: Calcific plaque [...] 3:01 pm with readback verification. Reading Location: [id number] Brain MRI 09/10/24 16:07 IMPRESSION: Atrophy and mild microvascular changes Reading Location[facility] Rhythm Strip Rhythm Strip: A-fib Rate: [...] and with change in RN caregiver. Freq: [id number] Protocol: Activity Type Activity Date Activity User E-sign Co-sign Detail Recorded Client Recorded Date Recorded By Document 09/11/24 09:08 YOVANY [id number] 09/11/24 09:08 YOVANY 09/11/24 09:08 NIH Stroke [...] Cosigner Signature (if applicable): CC: ~ Signed [facility]06-13-2025 History and physical note Author Matthew Oro [facility] Note Date/Time September 10, 2024 5:27 pm [facility] Medical Records Department [address] [place] [address] H&P Exam - Hospitalist 09/10/24 1603 MR#: [id number] Acct: [id number] Name: EZRA GONZALEZ Rep #:[id number] : 1935 89 From: Matthew carbajal DO PCP: Dr. Kvng Ochoa, DO Status:ADM MARIELOS Location: [place] [address] HPI - General General Date of Admission: 09/10/24 Date of Service: 09/10/24 Chief Complaint: Dysarthria HPI Narrative EZRA GONZALEZ, is a 89 F who presented to [facility] ED on 09/10/2024 with dysarthria. Patient lives at assisted living at [place]. Has history of seizures and is on [...] acute concerns at this time. 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 1. [...] 55 minutes. Charges/Coding Visit Charges Inpatient E&M: 99641 Init Hosp L2 09/10/24 1727 <Electronically signed by Matthew Oro DO> Cosigner Signature (if applicable): CC: Dr. Matthew Oro DO; Dr. Kvng Ochoa DO~ Signed [facility] Work Phone: 1(446) 585-431806-13-2025 Discharge summary Author Teri [facility] Note Date/Time September 10, 2024 4:17 pm [facility] Medical Records Department [address] [place] [address] Emergency Department Summary 09/10/24 MR#: [id number] Acct: [id number] Name: EZRA GONZALEZ Rep #:[id number] : 1935 89 From: Teri Echeverria PCP: [...] son Wilfredo (her eldest son) phone number [phone]. He states that she follows with Dr. 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 He also tells me that he talk to her about 615 this morningand she seemed a little off with her mentation as well as her pronunciation. 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 [...] 72.3 H Lymph % (Auto) 16.6 L [place] % (Auto) 9.1 Eos % (Auto) 1.2 [...] Clarity Clear Urine pH 5.0 Ur Specific [place] 1.010 Urine Protein 30 H Urine Glucose [...] segments Management Discussion w/another healthcare provider: Hospitalist, Asphalt Paver Operator and Radiologist Discharge Plan Triage Chief Complaint: Stroke Alert ED Provider: Teri Garcia Dx/Rx/DC Orders Clinical Impression: Difficulty with speech, 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 current use of anticoagulant, Atrial fibrillation, chronic, [...] DO [Primary Care Provider] - Print Language: Dominican Disposition Disposition: Acute Care Hospital [facility] NIHSS NIHSS 1a. Level of Consciousness: [...] No aphasia; normal 10. Dysarthria: 1 = [id number] dysarthria; 11. Extinction and Inattention: 0 - [...] problems, contact your Primary Care Provider. Call [place] [facility] ([phone]) or report to the closest Emergency Room. Call 911 if necessary. 09/10/24 1617 <Electronically signed by Teri Garcia DO> Cosigner Signature (if applicable): CC: Dr. Kvng Ochoa DO ~ Signed [facility] Work Phone: 1(198) 754-736406-13-2025 Evaluation note* Diagnosis Onset Date Resolution Status Admit Date Difficulty with speech resolved Ju ne 2024 4:03pm Dementia acute September 13 2:04pm 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 2:04pm Urinary tract infection acute J une 2024 2:04pm Transient ischemic attack resolved September 13, 2024 2:04pm 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 current use of anticoagulant acute November 22 8:14am Lower extremity edema acute Oct 8:14am Atherosclerotic heart diseas e of galena coronary artery without angina pectoris chronic November 22 8:14am Essential (primary) hypertension chr onic November 22, 2024 8:14am Hyperlipidemia chronic October 8:14am [facility] Work Phone: 1(762) 207-672006-13-2025 History and physical note [facility] Medical Records Department [address] [place] [address] H&P Exam - Hospitalist 09/10/24 1603 MR#: [id number] Acct: [id number] Name: EZRA GONZALEZ Rep #:[id number] : 1935 89 From: Matthew carbajal DO PCP: Dr. Kvng Ochoa DO Status:ADM MARIELOS Location: [place] [address] HPI - General General Date of Admission: 09/10/24 Date of Service: 09/10/24 Chief Complaint: Dysarthria HPI Narrative EZRA GONZALEZ, is a 89 F who presented to [facility] ED on 09/10/2024 with dysarthria. Patient lives at assisted living at [place]. Has history of seizures and is on [...] acute concerns at this time. 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 Reading Location: [id number] Head/Neck CTA 09/10/24 13:55 IMPRESSION: Calcific plaque [...] 3:01 pm with readback verification. Reading Location: [id number] Assessment & Plan Assessment/Plan (1) Difficulty with speech: PLAN: Plan Patient is an 89-year-old female who presented to [facility] ED on 09/10/2024 with dysarthria. 1. [...] 55 minutes. Charges/Coding Visit Charges Inpatient E&M: 55733 Init Hosp L2 09/10/24 1727 Cosigner Signature (if applicable): CC: Dr. Matthew Oro, DO; Dr. Kvng Ochoa, DO~ Signed [facility]06-13-2025 Discharge summary [facility] Medical Records Department [address] [place] [address] Emergency Department Summary 09/10/24 MR#: [id number] Acct: [id number] Name: EZRA GONZALEZ Rep #:[id number] : 1935 89 From: Teri Echeverria PCP: [...] son Wilfredo (her eldest son) phone number [phone]. He states that she follows with Dr. 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 He also tells me that he talk to her about 615 this morningand she seemed a little off with her mentation as well as her pr onunciation. 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 Reading Location: [id number] Head/Neck CTA 09/10/24 13:55 IMPRESSION: Calcific plaque [...] 3:01 pm with readback verification. Reading Location: [id number] Rhythm Strip Rhythm Strip: A-fib Rate: 75 Ectopy: None EKG Initial EKG: Attestation: I personally reviewed and interpreted this EKG as follows: Interpretation: Atrial Fibrillation Comments: Atrial fibrillation at a rate of 75 bpm Left axis deviation Moderate voltage criteria for LVH Normal ST segments Management Discussion w/another healthcare provider: Hospitalist, Asphalt Paver Operator and Radiologist Discharge Plan Triage Chief Complaint: Stroke Alert ED Provider: Teri Garcia Dx/Rx/DC Orders Clinical Impression: Difficulty with speech, 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 current use of anticoagulant, Atrial fibrillation, chronic, [...] DO [Primary Care Provider] - Print Language: Dominican Disposition Disposition: Acute Care Hospital [facility] NIHSS NIHSS 1a. Level of Consciousness: [...] No aphasia; normal 10. Dysarthria: 1 = Mjwu-hq-epfyfves dysarthria; 11. Extinction and Inattention: 0 - [...] your Primary Care Provider. Call [facility] ([phone]) or report tothe closest Emergency Room. Call 911 if necessary. 09/10/24 1617 Cosigner Signature (if applicable): CC: Dr. Kvng Ochoa DO ~ Signed [facility]06-13-2025 Radiology Diagnostic study note [facility] Imaging Services [address] [place], [place] [address] STROKE CTA Head AND Neck W/Con MR#: [id number] Acct: [id number] Name: EZRA GONZALEZ Rep #: [id number] : 1935 F 89 From: Jian Gipson MD PCP: Dr. Kvng Ochoa DO Status: REG ER Study:STROKE CTA Head AND Neck W/Con Date of Exam: 09/10/24 Exam# [id number] Ordering Dr: Adeel Garcia DO PROCEDURE: STROKE [...] RIGHT Vertebral: Unremarkable. LEFT Vertebral: Unremarkable. Anatomy: [place] anatomy is normal. Aneurysm or [...] 3:01 pm with readback verification. Reading Location: [id number] CC: Dr. Teri Garcia DO; Dr. Kvng Ochoa DO ~ Chiropractor Sole Practitioner: Signed [facility]06-13-2025 Radiology Diagnostic study note [facility] Imaging Services [address] [place], [place] [address] STROKE Brain/Head without Cont MR#: [id number] Acct: [id number] Name: EZRA GONZALEZ Rep #: [id number] : 1935 F 89 From: Jian Gipson MD PCP: Dr. Kvng Ochoa DO Status: REG ER Study:STROKE Brain/Head without Cont Date of Exam: 09/10/24 Exam# [id number] Ordering Dr: Adeel Garcia DO PROCEDURE: STROKE [...] 2:05 pm with readback verification. Reading Location: [id number] CC: Dr. Teri Garcia DO; Dr. 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 Glucose is slight [id number] with a normal CO2 anion gap. Labs: Laboratory Results - last 24 hr 09/08/24 12:50 WBC 13.6 H RBC 4.40 Hgb 13.8 Hct 41.4 MCV 94.1 MCH 31.4 MCHC 33.3 RDW Std Deviation 45.2 H RDW Coeff of Sumeet 13.2 Plt Count 326 MPV 10.8 Immature Gran % (Auto) 0.400 Neut % (Auto) 75.9 H Lymph % (Auto) 16.2 L [place] % (Auto) 6.6 Eos % (Auto) 0.7 [...] with her neurologist Dr. Juarez Print Language: Dominican Disposition Disposition: Home, Self Care What to do if you have Problems For any increased pain, shortness of breath, bleeding, nausea or vomiting, chestpain, or any unexpected problems, contact your Primary Care Provider. Call [facility] ([phone]) or report tothe closest Emergency Room. Call 911 if necessary. 09/08/24 1516 Cosigner Signature (if applicable): CC: Dr. 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 Glucose is slight [id number] with a normal CO2 anion gap. Labs: Laboratory Results - last 24 hr 09/08/24 12:50 WBC 13.6 H RBC 4.40 Hgb 13.8 Hct 41.4 MCV 94.1 MCH 31.4 MCHC 33.3 RDW Std Deviation 45.2 H RDW Coeff of Sumeet 13.2 Plt Count 326 MPV 10.8 Immature Gran % (Auto) 0.400 Neut % (Auto) 75.9 H Lymph % (Auto) 16.2 L [place] % (Auto) 6.6 Eos % (Auto) 0.7 [...] with her neurologist Dr. Juarez Print Language: Dominican Disposition Disposition: Home, Self Care What to do if you have Problems For any increased pain, shortness of breath, bleeding, nausea or vomiting, chestpain, or any unexpected problems, contact your Primary Care Provider. Call [facility] ([phone]) or report to the closest Emergency Room. Call 911 if necessary. 09/08/24 1516 <Electronically signed by Anoop Blackmon MD> Cosigner Signature (if applicable): CC: Dr. Kvng Ochoa MD ~ Signed [facility] Work Phone: 1(260) 696-381304-03-2025 Evaluation note* Diagnosis Onset Date Resolution Status Admit Date Longstanding persistent atrial fibrillation acute July 01 10:35am Essential (primary) hypertension chronic July 01, 2024 10:35am History of coronary artery stent placement February 14, 2007 resolved July 01 025 10:35am [facility] Work Phone: 1(199) 984-810304-03-2025 Evaluation note* Diagnosis Onset Date Resolution Status Admit Date Longstanding persistent atrial fibrillation acute July 01, 025 10:35am Essential (primary) hypertension chronic July 01, 2024 10:35am History of coronary artery stent placement February 14, 2007 resolved July 01, 025 10:35am Difficulty with speech acute [facility] 2024 4:03pm [facility] Work Phone: 1(947) 624-458704-03-2025 Evaluation note* Diagnosis Onset Date Resolution Status Admit Date Longstanding persistent atrial fibrillation acute July 01, 2 025 10:35am Essential (primary) hypertension chronic July 01, 2024 10:35am History of coronary artery stent placement February 14, 2007 resolved July 01, 025 10:35am Difficulty with speech acute [facility] 2024 4:03pm 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 2:04pm [facility] Work Phone: 1(793) 299-400404-03-2025 Evaluation note* Diagnosis Onset Date Resolution Status Admit Date Longstanding persistent atrial fibrillation acute July 01, 025 10:35am Essential (primary) hypertension chronic July 01, 2024 10:35am History of coronary artery stent placement February 14, 2007 resolved July 01 025 10:35am Difficulty with speech resolved [facility] 2024 4:03pm 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 2:04pm [facility] Work Phone: 1(772) 231-668302-10-2025 Evaluation note* Diagnosis Onset Date Resolution Status Admit Date Dementia acute May 10, 2024 2:34pm Epilepsy acute May 10, 2024 2:34pm Transient ischemic attack resolved May 10, 2024 2:34pm [facility] Work Phone: 1(918) 677-410402-10-2025 Evaluation note* Diagnosis Onset Date Resolution Status Admit Date Dementia acute May 10, 2024 2:34pm Epilepsy acute May 10, 2024 2:34pm Transient ischemic attack resolved May 10, 2024 2:34pm Longstanding persistent atrial fibrillation acute July 01 025 10:35am Essential (primary) hypertension chronic July 01, 2024 10:35am History of coronary artery stent placement February 14, 2007 resolved July 01, 2024 10:35am [facility] Work Phone: 1(527) 560-613503-22-2024 NoteStart PACC Note Home Health Referral Educated patient on Home Care and services available. Patient offered choice of available HHC and agreeable to PT/OT services with [facility]. [...] is noted as yes - consider a INSPECTOR PENETRANT evaluation once the patient returns home. START PATIENT REGISTRATION INFORMATION Order Information Order Signing Physician: Connie Perez APRN * Service Ordered RN ?: No Service Ordered PT ?: Yes Service Ordered OT ?: Yes Service Ordered ST ?: No Service Ordered INSPECTOR PENETRANT?:No Service Ordered AESTHETICS INSTRUCTOR?: No Following Physician: ALEXANDRA HAGEN Following Physician Overseeing Physician: ALEXANDRA HAGEN (Required for Residents only) Agreeable to Follow? No Date/Time of Call 06/20/23 2:40 PM, Spoke with: BRYAN FOR OFFICE-CONFIRMED WITH JOSEP THIS IS HER PHYSICAN AND CAN SEE RECENT NOTES IN [facility] Care Coordination Same Day SOC?: No Primary Care Physician: ALEXANDRA HAGEN Primary Care Physician Primary Care Physician Address: [address] / [facility] [address] Visit Instructions: N/A Service Discharge Location Type: Assisted Living Service Facility Name: [facility] Floor Facility: N/A Service Room No: 105 Demographics Patient Last Name: Lisa Patient First Name: Ezra Language/Communication Barrier: NONE Service Address: [address] [place] [address] [address] Service City: [facility] ST: [place] Service ZIP: [address] Service (home) Other phone numbers: No relevant phone numbers on file. Emergency Contact: Extended Emergency Contact Information Primary Emergency Contact: Patito [place] Mobile Relation: Son Metal Door Assembler needed? No Secondary Emergency Contact: Ty [place] Mobile Relation: Son Admission Information Admit Date: 06/16/2023 Patient status at discharge: Inpatient Admitting Diagnosis: Closed displaced fracture of medial condyle of right humerus, initial encounter [S42.294A] Caregiver Information Caregiver First Name: NA Caregiver Last Name: NA Caregiver Relationship to Patient NA Caregiver Phone Number: NA Caregiver Notes: N/A HITNeGoBuY-Tech List No END PATIENT REGISTRATION INFORMATION Pt [...] medications. Discharge Date: 06/20/23 Referral Source-PACC: (Hospital/Unit): [facility] / [id number] A End PACC [facility]03-22-2024 History of Present illness Narrative* Juanjo Villalba RN - 06/20/2023 3:51 PM EDT Dc via DM cot to [facility] with all belongings * Juanjo Villalba RN - 06/20/2023 3:01 PM EDT Called report to Maryanne at [place] * Dc Lombardi - 06/20/2023 2:26 PM EDT [facility] [facility] Anticoagulation Management Service (RAI) Inpatient Warfarin Consult HPI: Ezra Gonzalez is a 87 y.o. female admitted on 06/16/2023 for Closed displaced fracture of medial condyle of right humerus, initial encounter [S42.839X] History reviewed. No pertinent past medical history. [...] patient can be classified as high risk ([id number] = 8). 2. Monitor for s/s of bleeding and drug interactions. Will adjust dose accordingly 3. RIA will manage while inpatient Dc Lombardi JpD Candidate Toshia Sanches, JpD, BCPS RIA is available daily [phone] via [employer]. If no response on [employer] then please page [phone]. * Shayne Fonseca MD - 06/20/2023 6:05 [...] off at this time. Please page resident mold construction supervisor on Secure Chat with concerns or [...] original note were not included. PHYSICAL THERAPY [facility] Initial Evaluation Name/MRN: Ezra Gonzalez ([id number]) Evaluation Date: 06/19/2023 Date of : 1935 Admission Date: 06/16/2023 1:38 PM Age: 87 y.o. Room/Bed: [facility]707/[facility] A Discharge Recommendation: Home with Home health PT (return to [place]) Equipment Needed: No Assessment IMPRESSION: 87 y.o. pt admitted to [facility] for closed fracture RUE, s/p ORIF R humerus 06/17. They were Min A for bed mobility, Min A for transfers, and Min A for ambulation. Pt limited d/t balance. If from [place] where she can receive Min A for all ADLs and mobility. Would recommend return to [place] and [facility] PTat discharge. Diagnosis: closed fracture RUE, [...] correction Ambulation Ambulation 1 Assistive device(s) used: AESTHETICS INSTRUCTOR Assist level: Min Assist Distance (ft): 15' [...] to a [facility] Therapy Services Physical Therapist. Goals and/or treatment plan was established in collaboration with patient/family/other representatives. * Enedelia Sanches, [facility] - 06/19/2023 1:50 PM EDT [facility] Anticoagulation Management Service (RIA) Inpatient Warfarin Consult HPI: Ezra Gonzalez is a 87 y.o. female admitted on 06/16/2023 for Closed displaced fracture of medial condyle of right humerus, initial encounter [S42.502B] History reviewed. No pertinent past medical history. [...] patient can be classified as high risk ([id number] = 8). 2. Monitor for s/s of bleeding and drug interactions. Will adjust dose accordingly 3. RIA will manage while inpatient Dc Lombardi, JpD Candidate Jp BolanosD, BCPS RIA is available daily [phone] via [employer] Chat. If no response on [employer] Chat then please page [phone]. * Kavon Diallo, OT - 06/19/2023 11:54 AM EDT Images from the original note were not included. OCCUPATIONAL THERAPY [facility] Initial Evaluation Name/MRN: Ezra Gonzalez ([id number]) Evaluation Date: 06/19/2023 Date of : 1935 Admission Date: 06/16/2023 1:38 PM Age: 87 y.o. Room/Bed: [facility] A Discharge Recommendation: Continue to assess [...] to a [facility] Therapy Services Occupational Therapist. Goals and/or treatment plan was established in collaboration with patient/family/other representatives. * JANNETTE Hall CNP - 06/19/2023 9:52 AM EDT Images from the original note were not included. Hospitalist Progress Note 06/19/2023 Subjective: Admit Date: 06/16/2023 PCP: No primary care provider on file. Room#: E7-617/E7-792 A BRIEF HOSPITAL COURSE: Ezra is a [...] Emergency Contact: Patito Cuba Mobile Relation: Son Metal Door Assembler needed? No Secondary Emergency Contact: MariiaTy collins Mobile Relation: Son JANNETTE Hall CNP [facility] * Huma Tavarez MD - 06/19/2023 6:14 [...] be monitored and followed by the diet communication electronic technician. NICA Watts * Louisa Cespedes OT - 06/18/2023 8:26 AM EDT Images from the original note were not included. OCCUPATIONAL THERAPY [facility] Name/MRN: Ezra Gonzalez ([id number]) Date: 06/18/2023 OT eval and treat order received. Patient chart reviewed. Per Ortho note, Plan for ORIF od R distal humerus. Will hold evaluation till after surgery. Louisa Cespedes OT * JANNETTE Hall CNP - 06/18/2023 8:00 AM EDT Images from the original note were not included. Hospitalist Progress Note 06/18/2023 Subjective: Admit Date: 06/16/2023 PCP: No primary care provider on file. Room#: I5-386/B5-384 A BRIEF HOSPITAL COURSE: Ezra is a [...] Primary Emergency Contact: GillesrodriguePatito Mobile Relation: Son Metal Door Assembler needed? No Secondary Emergency Contact: GillesTy husain Mobile Relation: Son JANNETTE Hall CNP Division of Hospitalist Medicine [facility] * Maryanne Neumann PT - 06/18/2023 7:27 AM EDT Images from the original note were not included. PHYSICAL THERAPY [facility] Name/MRN: Ezra Gonzalez ([id number]) Date: 06/18/2023 PT orders received and chart [...] PGY-5 x2380 * Connie Perez APRN - [facility] - 06/17/2023 7:46 AM EDT Images from [...] Primary Emergency Contact: BereketPatito Mobile Relation: Son Metal Door Assembler needed? No Secondary Emergency Contact: GillesTy husain Mobile Relation: Son JANNETTE Hall CNP Division of Hospitalist Medicine Acute care [facility] * Shayne Fonseca MD - [...] + AIN/PIN/ulnar nerve functions documented in this [facility]03-22-2024 Miscellaneous Notes* Care Coordination - Unknown Case Management - 06/20/2023 2:58 PM EDT Patient Choice Patient Name: EZRA GONZALEZ Date of : 1935 All Providers Sent Referral Name: [facility] Phone: [phone] Address: [address] [place] [address] * Home Care - Vivian Bills RN - 06/20/2023 2:40 PM EDT Start PACC Note Home Health Referral Educated patient on Home Care and services available. Patient offered choice of available HHC and agreeable to PT/OT services with [facility] at Home - Home Care. [...] is noted as yes - consider a INSPECTOR PENETRANT evaluation once the patient returns home. START PATIENT REGISTRATION INFORMATION Order Information Order Signing Physician: Connie Perez APRN * Service Ordered RN ?: No Service Ordered PT ?: Yes Service Ordered OT ?: Yes Service Ordered ST ?: No Service Ordered INSPECTOR PENETRANT?:No Service Ordered AESTHETICS INSTRUCTOR?: No Following Physician: ALEXANDRA HAGEN Following Physician Overseeing Physician: ALEXANDRA HAGEN (Required for Residents only) Agreeable to Follow? No Date/Time of Call 06/20/23 2:40 PM, Spoke with: BRYAN FOR OFFICE-CONFIRMED WITH JOSEP THIS IS HERPHYSICAN AND CAN SEE RECENT NOTES IN EPIC Care Coordination Same Day SOC?: No Primary Care Physician: ALEXANDRA HAGEN Primary Care Physician Primary Care Physician Address: [address] [place] [address] [address] / [facility] [phone] Visit Instructions: N/A Service Discharge Location Type: Assisted Living Service Facility Name: [facility] Floor Facility: N/A Service Room No: 105 Demographics Patient Last Name: Lisa Patient First Name: Ezra Language/Communication Barrier: NONE Service Address: [address] [facility] [address] Service City: [facility] ST: [place] Service ZIP: [address] Service (home) Other phone numbers: No relevant phone numbers on file. Emergency Contact: Extended Emergency Contact Information Primary Emergency Contact: Patito Cuba Mobile Relation: Son Metal Door Assembler needed? No Secondary Emergency Contact: Ty Cuba Mobile Relation: Son Admission Information Admit Date: 06/16/2023 Patient status at discharge: Inpatient Admitting Diagnosis: Closed displaced fracture of medial condyle of right humerus, initial encounter [S40.296J] Caregiver Information Caregiver First Name: NA Caregiver [...] medications. Discharge Date: 06/20/23 Referral Source-PACC: (Hospital/Unit): [facility] / E7-707/E7-707 A End PACC Note [...] pt order lunch. Notified TONIO, RN and critical care unit manager. . * Care Coordination - Shikha Gray RN - 06/20/2023 11:01 AM EDT I SPOKE WITH DONOVAN, TRANSPLANT WORKER AT [facility]. THEY CAN TAKE PT BACK TODAY. THEY CAN PROVIDE TRANSPORTATION BACK TO FACILITY AROUND 3 PM. AWARE PT WILL NEED PT AT FACILITY, THEY USE [facility], DID LET LIAISON NOW. WENT [...] PM EDT Date: 06/16/2023 - 06/18/2023 Location: [facility] OR Name: Ezra Gonzalez, : 1935, Diagnosis Pre-op Diagnosis * Closed displaced fracture of medial condyle of right humerus, initial encounter [S42.461A] Post-op Diagnosis * Closed displaced fracture of medial condyle of right humerus, initial encounter [S42.461A] Procedures OPEN REDUCTION INTERNAL FIXATION RIGHT DISTAL HUMERUS 32227 - [place] OPTX HUMERAL SHFT FX W/PLATE/SCREWS W/WOCERCLAGE Surgeons * Benitez Givens - Primary Procedure Summary Anesthesia: * No anesthesia type entered * ASA: III Estimated Blood Loss: Minimal Drains: * None in log * Staff: Manager Harbor: Vivian Herrera RN Scrub Person: Linda Alvarez [...] Permission given to speak with patient sales representatives/caregiver as indicated: No Confirmation of Payer with patient/family: Yes Payer Name: [facility] : No Confirmation of Primary Care [...] rest and pain control documented in this [facility]03-22-2024 Note* Care Coordination - Unknown Case Management - 06/20/2023 2:58 PM EDT Patient Choice Patient Name: EZRA GONZALEZ Date of : 1935 All Providers Sent Referral Name: [facility] At Home Phone: [phone] Address: [address] [place] [address] [facility] Hospital[facility]ightSquaredUzewtj26-77-8657 Note* Care Coordination - Unknown Case Management - 06/20/2023 2:58 PM EDT Patient Choice Patient Name: EZRA GONZALEZ Date of : 1935 All Providers Sent Referral Name: [facility] Phone: [phone] Address: [address] [place] [address] [facility] [id number] Note* Home Care - Vivian Bills RN - 06/20/2023 2:40 PM EDT Start PACC Note Home Health Referral Educated patient on Home Care and services available. Patient offered choice of available HHC and agreeable to PT/OT services with [facility] - Home Care. Care Types: [...] is noted as yes - consider a INSPECTOR PENETRANT evaluation once the patient returns home. START PATIENT REGISTRATION INFORMATION Order Information Order Signing Physician: Connie Perez APRN * Service Ordered RN ?: No Service Ordered PT ?: Yes Service Ordered OT ?: Yes Service Ordered ST ?: No Service Ordered INSPECTOR PENETRANT?:No Service Ordered AESTHETICS INSTRUCTOR?: No Following Physician: ALEXANDRA HAGEN Following Physician Overseeing Physician: ALEXANDRA HAGEN (Required for Residents only) Agreeable to Follow? No Date/Time of Call 06/20/23 2:40 PM, Spoke with: BRYAN FOR OFFICE-CONFIRMED WITH JOSEP THIS IS HERPHYSICAN AND CAN SEE RECENT NOTES IN EPIC Care Coordination Same Day SOC?: No Primary Care Physician: ALEXANDRA HAGEN Primary Care Physician Primary Care Physician Address: [address] / [facility] [phone] Visit Instructions: N/A Service Discharge Location Type: Assisted Living Service Facility Name: [facility] Floor Facility: N/A Service Room No: 105 Demographics Patient Last Name: Lisa Patient First Name: Ezra Language/Communication Barrier: NONE Service Address: [address] [place] [address] [address] Service City: [facility] ST: [place] Service ZIP: [address] Service (home) Other phone numbers: No relevant phone numbers on file. Emergency Contact: Extended Emergency Contact Information Primary Emergency Contact: BereketPatito Mobile Relation: Son Metal Door Assembler needed? No Secondary Emergency Contact: MariiadennisTy Mobile Relation: Son Admission Information Admit Date: 06/16/2023 Patient status at discharge: Inpatient Admitting Diagnosis: Closed displaced fracture of medial condyle of right humerus, initial encounter [S42.461A] Caregiver Information Caregiver First Name: NA Caregiver Last Name: NA Caregiver Relationship to Patient NA Caregiver Phone Number: NA Caregiver Notes: N/A [employer] List No END PATIENT REGISTRATION INFORMATION Pt [...] medications. Discharge Date: 06/20/23 Referral Source-PACC: (Hospital/Unit): [facility] / E7-707/E7-707 A End PACC Note [facility] [id number] Note* Home Care - Vivian Bills RN - 06/20/2023 2:40 PM EDT Start PACC Note Home Health Referral Educated patient on Home Care and services available. Patient offered choice of available HHC and agreeable to PT/OT services with [facility] at Home - Home Care. [...] is noted as yes - consider a INSPECTOR PENETRANT evaluation once the patient returns home. START PATIENT REGISTRATION INFORMATION Order Information Order Signing Physician: Connie Perez APRN * Service Ordered RN ?: No Service Ordered PT ?: Yes Service Ordered OT ?: Yes Service Ordered ST ?: No Service Ordered INSPECTOR PENETRANT?:No Service Ordered AESTHETICS INSTRUCTOR?: No Following Physician: ALEXANDRA HAGEN Following Physician Overseeing Physician: ALEXANDRA HAGEN (Required for Residents only) Agreeable to Follow? No Date/Time of Call 06/20/23 2:40 PM, Spoke with: LVM FOR OFFICE-CONFIRMED WITH JOSEP THIS IS HERPHYSICAN AND CAN SEE RECENT NOTES IN [facility] Care Coordination Same Day SOC?: No Primary Care Physician: ALEXANDRA HAGEN Primary Care Physician Primary Care Physician Address: [address] [place] [address] [address] / [place] [phone] Visit Instructions: N/A Service Discharge Location Type: Assisted Living Service [facility] Floor Facility: N/A Service Room No: 105 Demographics Patient Last Name: Lisa Patient First Name: Ezra Language/Communication Barrier: NONE Service Address: [address] [place] [address] [address] Service City: [facility] ST: [place] Service ZIP: [address] Service (home) Other phone numbers: No relevant phone numbers on file. Emergency Contact: Extended Emergency Contact Information Primary Emergency Contact: Patito Cuba Mobile Relation: Son Metal Door Assembler needed? No Secondary Emergency Contact: Ty Cuba Mobile Relation: Son Admission Information Admit Date: 06/16/2023 Patient status at discharge: Inpatient Admitting Diagnosis: Closed displaced fracture of medial condyle of right humerus, initial encounter [S42.461A] Caregiver Information Caregiver First Name: NA Caregiver Last Name: NA Caregiver Relationship to Patient NA Caregiver Phone Number: NA Caregiver Notes: N/A [employer] List No END PATIENT REGISTRATION INFORMATION Pt [...] medications. Discharge Date: 06/20/23 Referral Source-PACC: (Hospital/Unit): [facility] / E7-707/E7-707 A End PACC Note [facility] [id number] NoteHospitalist Discharge Summary Ezra Gonzalez : 1935 [...] primary care provider Schedule (more content not included)...[facility]03-22-2024 Note* Care Coordination - SELINA Magaña [...] pt order lunch. Notified TONIO RN and critical care unit manager. . [facility] [id number] Note* Care Coordination - SELINA Magaña - [...] pt order lunch. Notified JAYME ELIZALDE and critical care unit manager. . [facility] CenterEldcob02-40-1917 Note* Care Coordination - Shikha Gray RN - 06/20/2023 11:01 AM EDT I SPOKE WITH DONOVAN, TRANSPLANT WORKER AT [facility]. THEY CAN TAKE PT BACK TODAY. THEY CAN PROVIDE TRANSPORTATION BACK TO FACILITY AROUND 3 PM. AWARE PT WILL NEED PT AT FACILITY, THEY USE [facility], DID LET HC LIAISON NOW. [...] SECURE CHAT WITH CONNIE PEREZ REGARDING THIS. [facility] CenterSgwbnp37-49-0497 Note* Care Coordination - Shikha Gray RN - 06/20/2023 11:01 AM EDT I SPOKE WITH DONOVAN, TRANSPLANT WORKER AT [facility]. THEY CAN TAKE PT BACK TODAY. THEY CAN PROVIDE TRANSPORTATION BACK TO FACILITY AROUND 3 PM. AWARE PT WILL NEED PT AT FACILITY, THEY USE [facility], DID LET HC LIAISON NOW. WENT TO [...] SECURE CHAT WITH CONNIE PEREZ REGARDING THIS. [facility] CenterGndkjz91-98-2026 Hospital course Narrative* Connie Perez, ROOM COOLER INSTALLER - DETECTIVE BUREAU CHIEF - 06/20/2023 10:18 AM EDT Images from [...] As needed [facility] Orthopedics Go to Appointment scheduled 06/26/23 at 10:[address] Givens. [address] [facility] Complexity of Follow up: [x] Moderate Complexity: follow up within 7-14 calendar days (81708) [] Severe Complexity: follow up within 7 calendar days (98549) Follow up Testing, Pending results or Referrals [...] time frame. Signed: Connie Perez APRN - [facility] Division of [facility] 06/20/2023, 1:11 PM documented in this [facility]03-22-2024 NoteDepartment of Orthopedic Surgery Progress Note [...] off at this time. Please page resident mold construction supervisor on Secure Chat with concerns or [...] in all distributions -Motor function intact to [facility] [id number] Note PHYSICAL THERAPY [facility] Initial Evaluation Name/MRN: Ezra Gonzalez ([id number]) Evaluation Date: 06/19/2023 Date of : 1935 Admission Date: 06/16/2023 1:38 PM Age: 87 y.o. Room/Bed: -707/[facility]707 A Discharge Recommendation: Home with Home health PT (return to [place]) Equipment Needed: No Assessment IMPRESSION: 87 y.o. pt admitted to [facility] for closed fracture RUE, s/p ORIF R humerus 06/17. They were Min A for bed mobility, Min A for transfers, and Min A for ambulation. Pt limited d/t balance. If from [place] where she can receive Min A for all ADLs and mobility. Would recommend return to [place] and [facility] PT at discharge. Diagnosis: closed fracture [...] correction Ambulation Ambulation 1 Assistive device(s) used: AESTHETICS INSTRUCTOR Assist level: Min Assist Distance (ft): 15' [...] eval, 1 FA) Dillon (more content not included)...[facility]03-21-2024 Note* Care Coordination - Shikha Gray RN - 06/19/2023 2:05 PM EDT DAY #1 S/P ORIF OF RIGHT ARM. WAITING FOR PT/OT EVALS FOR DC PLANNING. [facility] CenterSxwues35-69-6782 Note* Care Coordination - Shikha Gray RN - 06/19/2023 2:05 PM EDT DAY #1 S/P ORIF OF RIGHT ARM. WAITING FOR PT/OT EVALS FOR DC PLANNING. [facility] CenterJaurfh56-77-9906 NoteOCCUPATIONAL THERAPY [facility] Initial Evaluation Name/MRN: Ezra Gonzalez ([id number]) Evaluation Date: 06/19/2023 Date of : 1935 Admission Date: 06/16/2023 1:38 PM Age: 87 y.o. Room/Bed: E7707/E7708 A Discharge Recommendation: Continue to assess pending [...] 03/21/24 Expected End: 07/17/23 (more content not included)...[facility] [id number] Note Hospitalist Progress Note 06/19/2023 Subjective: Admit Date: 06/16/2023 PCP: No primary care provider on file. Room#: A5-645/M2-358 A BRIEF HOSPITAL COURSE: Ezra is a [...] Full Code Anticipated Dischar (more content not included)...[facility] 06-19-2023 NoteDepartment of Orthopedic Surgery Progress [...] -Sensation and motor exam limited 2/[address] [facility] 06-18-2023 NotePatient: Ezra Gonzalez Procedure Summary Date: 06/18/23 Room / Location: [address] Operating Room Anesthesia Start: 1541 Anesthesia [...] all PACU criteria has been met.[facility] [id number] NotePatient: Ezra Gonzalez Procedure Summary Date: 06/18/23 Room / Location: [facility] Operating Room Anesthesia Start: 1541 Anesthesia [...] Allowed opportunity for questions and acknowledgement of understanding.[facility]03-20-2024 Note* Perioperative Nursing Note - Irina Khan RN - 06/18/2023 8:11 PM EDT Pt states no need to contact family. RN on floor states she will call pt's son,. [facility] CenterPnpcdj62-89-7229 Note* Perioperative Nursing Note - Irina Khan RN - 06/18/2023 8:11 PM EDT Pt states no need to contact family. RN on floor states she will call pt's son,. [address]Ifgdyc30-93-4127 NoteAirway Date/Time: 06/18/2023 3:56 PM Urgency: scheduled General Information and Staff Patient location during procedure: Procedural Resident/SENIOR DIRECTOR OF STRATEGY: Sae Lora CRNA Performed: SENIOR DIRECTOR OF STRATEGY Indications and Patient Condition Indications for airway [...] 21 Number of attempts at approach: [address] [place], [place] [id number] Note Peripheral IV Date/Time: 06/18/2023 4:00 PM Inserted by: JANNETTE Ivey CRNA Placement Needle size: 20 G Laterality: left Location: upper arm. Local anesthetic: none Site prep: alcohol Technique: ultrasound guided Attempts: [address] [place], [place] [id number] NotePeripheral Block Time Out: 06/18/2023 3:28 PM Patient location during procedure: Procedural Start time: 06/18/2023 3:28 PM End time: 06/18/2023 3:32 PM Reason for block: at surgeon's request and post-op pain management Staffing Performed: SENIOR DIRECTOR OF STRATEGY Resident/SENIOR DIRECTOR OF STRATEGY: JANNETTE Ivey CRNA Preanesthetic Checklist Completed: patient [...] No paresthesias reported by patient during injectionMedications phgSVUFFkfxsz-ifdjjxkdzbr-gccrrtmuslx (TAP) syringe - Injection 30 mL - 06/18/2023 3:28:00 [facility]03-20-2024 NotePatient: Ezra Gonzalez Procedure Information Date/Time: 06/18/23 1530 Procedure: OPEN REDUCTION INTERNAL FIXATION RIGHT DISTAL HUMERUS (Right: Arm Upper) - requesting 330, if can't go at 330 will consider friday Location: [facility] OR [address] [place] [address] Operating Room Surgeons: Benitez Givens MD Relevant [...] DO on 06/17/2023 6:39 [facility] 06-18-2023 Hospital Discharge instructions* Discharge Instructions* Evette [...] Extended Emergency Contact Information Primary Emergency Contact: Pattio Cuba Relation: Son Metal Door Assembler needed? No Secondary Emergency Contact: Ty [...] (78.9 kg) Mental Status: {MITCHEL Patient Mental Status:81028} IV Access: {MITCHEL IV Access:41035} Nursing Mobility/ADLs: Walking {MALLY ADL:03391::Independent} Transfer {MALLY ADL:59958::Independent} Bathing {MALLY ADL:98516::Independent} Dressing {MALLY ADL:69852::Independent} Toileting {MALLY ADL:53404::Independent} Feeding {MALLY ADL:02078::Independent} Housing Officer {MALLY ADL:30017::Independent} Med Delivery {yes/no:49170} Wound Care Documentation and Therapy: Wound/Incision 06/18/23 Incision Arm Anterior;Right;Upper (Active) Site Assessment Clean;Dry 06/19/232147 Treatments Sling 06/19/232147 Primary Dressing Xeroform 06/19/23 1024 Dressing Status Clean, dry & intact 06/19/232147 Number of days: 1 Elimination: Continence: Bowel: {yes/no:88852} Bladder: {yes/no:52683} Urinary Catheter: {MITCHEL Urinary Catheter:46971} Colostomy/Ileostomy/Ileal Conduit: {YES / NO:} Date of Last BM: No intake or output data in the 24 hours ending 06/20/23 1025 I/O last 3 completed shifts: In: 711 (9 mL/kg) [P.O.:280; I.V.:114 (1.4 mL/kg); IV Piggyback:317] Out: 600 (7.6 mL/kg) [Urine:350 (0.1 mL/kg/hr); Blood:250] Weight: 78.9 kg Safety Concerns: {MITCHEL Safety Concerns:82331} Impairments/Disabilities: {MITCHEL Impairments/Disabilities:44476} Nutrition Therapy: Current Nutrition Therapy: {MITCHEL Diet List:50025} Routes of Feeding: {routes of feedin} Liquids: {liquid consistency:69142} Daily Fluid Restriction: {daily fluid restriction:38455} Last Modified Barium Swallow with Video (Video Swallowing Test): {done not done:08537} Treatments at the Time of Hospital Discharge: Respiratory Treatments: Oxygen Therapy: {Therapy; copd oxygen:05119} Ventilator: {MITCHEL Ventilator:57942} Rehab Therapies: {GEN THERAPY DISCIPLINE SCAL:0589865} Weight Bearing Status/Restrictions: {POD WEIGHT BEARIN} Other Medical Equipment (for information only, NOT a DME order): {Assistive Devices DME:53044} Other Treatments: Patient's personal belongings (please select all that are sent with patient): {MITCHEL Patient Belongings:98054} RN SIGNATURE: {E-signature:04680} CASE MANAGEMENT/SOCIAL WORK SECTION Inpatient Status Date: 06/16/23 Readmission Risk Assessment Score: @READMISSIONRISKDETAILS@ Discharging to Facility/ Agency [facility]charging to [facility] Address: [address] [place] [address] Name: BRUCE MCARTHUR Address:[address] [id number] ~28[address]4 [address] Fax: Dialysis Facility (if applicable) Name: Address: Dialysis Schedule: Phone: Fax: Instant Printer Operator/Clubhouse Manager signature: ICIAN SECTION Prognosis: good Condition at [...] in H&P PHYSICIAN SIGNATURE: documented in this [facility]03-20-2024 Note* Brief Op Note - Lexa Aparicio MD - 06/18/2023 3:42 PM EDT Date: 06/16/2023 - 06/18/2023 Location: [facility] OR Name: Ezra Gonzalez, : 1935, Diagnosis Pre-op Diagnosis * Closed displaced fracture of medial condyle of right humerus, initial encounter [S42.461A] Post-op Diagnosis * Closed displaced fracture of medial condyle of right humerus, initial encounter [S42.461A] Procedures OPEN REDUCTION INTERNAL FIXATION RIGHT DISTAL HUMERUS 10981 - CA OPTX HUMERAL SHFT FX W/PLATE/SCREWS W/WOCERCLAGE Surgeons * Benitez Givens - Primary Procedure Summary Anesthesia: * No anesthesia type entered * ASA: III Estimated Blood Loss: Minimal Drains: * None in log * Staff: Manager Harbor: Vivian Herrera RN Scrub Person: Linda Alvarez [...] Givens in 2 weeks -Ortho to follow. Storie Work Phone: 1(887) 476-171003-20-2024 Note* Brief Op Note - Lexa Aparicio MD - 06/18/2023 3:42 PM EDT Date: 06/16/2023 - 06/18/2023 Location: [facility] OR Name: Ezra Gonzalez, : 1935, Diagnosis Pre-op Diagnosis * Closed displaced fracture of medial condyle of right humerus, initial encounter [S42.371S] Post-op Diagnosis * Closed displaced fracture of medial condyle of right humerus, initial encounter [S42.379H] Procedures OPEN REDUCTION INTERNAL FIXATION RIGHT DISTAL HUMERUS 19616 - CA OPTX HUMERAL SHFT FX W/PLATE/SCREWS W/WOCERCLAGE Surgeons * Benitez Givens - Primary Procedure Summary Anesthesia: * No anesthesia type entered * ASA: III Estimated Blood Loss: Minimal Drains: * None in log * Staff: Manager Harbor: Vivian Herrera RN Scrub Person: Linda Alvarez [...] Givens in 2 weeks -Ortho to follow. [employer] [facility] Work Phone: 1(861) 450-331203-20-2024 Note* Perioperative Nursing Note - Deisy Gonzalez RN - 06/18/2023 3:29 PM EDT Patients wallet and watch locked up with security. OR notified patient states she has latex allergy Patients purse and glasses taken to pacu [facility] [id number] Note* Perioperative Nursing Note - Deisy Gonzalez RN - 06/18/2023 3:29 PM EDT Patients wallet and watch locked up with security. OR notified patient states she has latex allergy Patients purse and glasses taken to pacu [facility] [id number] Note* Care Coordination - Shikha Gray RN - 06/18/2023 1:03 PM EDT Care Managment Initial Assessment Date: 06/18/2023 Patient Name: Ezra Gonzalez : 1935 Patient Information Source of Information: Patient Cognition/Language: WFL - Within Functional Limits Permission given to speak with patient sales representatives/caregiver as indicated: No Confirmation of Payer with patient/family: Yes Payer Name: [facility] : No Confirmation of Primary Care [...] Transportation/Shopping: Assistance Provider Transportation/Shopping Assistance Provider Name: [address] Transportation Mode: Needs Assistance with Transportation [...] WILL CONTINUE TO FOLLOW. Shikha Gray RN [facility] [id number] Note* Care Coordination - Shikha Gray RN - 06/18/2023 1:03 PM EDT Care Managment Initial Assessment Date: 06/18/2023 Patient Name: Ezra Gonzalez : 1935 Patient Information Source of Information: Patient Cognition/Language: WFL - Within Functional Limits Permission given to speak with patient sales representatives/caregiver as indicated: No Confirmation of Payer with patient/family: Yes Payer Name: [facility] : No Confirmation of Primary Care [...] Transportation/Shopping: Assistance Provider Transportation/Shopping Assistance Provider Name: [address] Transportation Mode: Needs Assistance with Transportation [...] WILL CONTINUE TO FOLLOW. Shikha Gray RN [facility] [id number] NoteHospitalist Progress Note 06/18/2023 Subjective: Admit Date: 06/16/2023 PCP: No primary care provider on file. Room#: N9-224/A7-802 A BRIEF HOSPITAL COURSE: Ezra is a [...] Emergency Contact: Patito [place] Relation: Son Metal Door Assembler needed? No Se (more content not included)...[facility]03-20-2024 Note Department of Orthopedic Surgery Progress [...] radial/median/ulnar/axillary nerve distributions -Motor + AIN/PIN/ulnar nerve functionsMcLaren Greater [facility] Hospital03-19-2024 Plan of care note* Care Plan - Yvan Sepulveda RN - 06/17/2023 11:35 PM EDT The patient is Moderately Stable - Low risk of patient condition declining or worsening The patient's goals for the shift include rest and pain control The clinical goals for the shift include rest and pain control [place] [id number] Nurse Note* Yvan Sepulveda RN - 06/17/2023 9:22 PM EDT Patient home medication list updated, provider made aware. [id number] Nurse Note* Yvan Sepulveda RN - 06/17/2023 9:22 PM EDT Patient home medication list updated, provider made aware. documented in this [facility]03-19-2024 Emergency department Note* Di Reyna RN - 06/17/2023 11:52 AM EDT Patient resting in bed at this time, equal unlabored respirations noted and no acute distress, callbell within reach Di Reyna RN 06/17/23 1153 [id number] Emergency department Note* Di Reyna RN - [...] US IV line. Juanjo Pringle RN 06/16/23 7471 * NADIA Ruiz - 06/16/2023 12:38 PM [...] injury anywhere else. Patient was evaluated at [facility] emergency department prior to arrival and was noted to have a distal humerus fracture. Patient was transferred to [facility] ED for orthopedic consultation. Patient denies [...] Culture. Procedure Abnormality Status --------- ------ Complete Urinalysis[[id number]] Please view results for these tests on [...] right arm injury. Patient was seen at [facility] prior to arrival was noted to have a distal humerus fracture. Patient transferred to [facility] ED for orthopedic consultation. Nursing notes [...] screen, x-ray right elbow. CT head from [place] ED -shows no signs of acute cranial abnormalities. CXR from [place] ED prior to arrival -blunting of bilateral [...] 06/16/2023 12:38 PM EDT Emergency Department Encounter [facility] EMERGENCY DEPT Patient: Ezra Gonzalez : [...] dictating provider for clarification.) Sae Conde MD [facility] Sae Conde MD 06/16/23 1626 documented in this [facility]03-19-2024 Emergency department Note* Alia Foster RN - 06/17/2023 10:00 AM EDT Pt O2 desaturating to mid 80s after receiving dilaudid IV. Pt placed on 2L NC and immediately back up to 95%. MD notified Alia Foster RN 06/17/23 1031 [facility] [id number] NoteHospitalist Progress Note 06/17/2023 Subjective: Admit Date: [...] does not feel safe going back to [place] at this time. Since patient staying ortho [...] Primary Emergency Contact: MariialubarodriguePatito [place] Relation: Son Metal Door Assembler needed? No Secondary Emergency Contact: Ty [place] Relation: Son Connie JANNETTE Perez - [facility] Division of Hospitalist Medicine [facility]03-19-2024 NoteDepartment of Orthopedic Surgery Progress Note ASSESSMENT [...] ulnar nerve distributions -Motor + AIN/PIN/ulnar nerve functionsMcL[facility]03-18-2024 Emergency department Note* Juanjo Pringle RN [...] US IV line. Juanjo Pringle RN 06/16/23 1257 [facility] CenterQeqbjj65-50-7069 NoteAttending History and Physical Admit Date: 06/16/2023 [...] Pain control am labs, (more content not included)...[facility]03-18-2024 History and physical note* Jayshree Cortez [...] does not feel safe going back to [place] at this time. Since patient staying ortho [...] Emergency Contact: Pat[place] Relation: Son Metal Door Assembler needed? No Secondary Emergency Contact: Ty [place] Relation: Son Jayshree Cortez MD Division of Hospitalist Medicine [facility] [employer] Phone: 1(574) 895-525303-18-2024 History and physical note* Jayshree Cortez MD [...] Emergency Contact: Patito [place] Relation: Son Metal Door Assembler needed? No Secondary Emergency Contact: Ty [place] Relation: Son Jayshree Cortez MD Division of Hospitalist Medicine [facility] documented in this [facility]03-18-2024 Physician Emergency department Note* NADIA Ruiz [...] injury anywhere else. Patient was evaluated at [facility] emergency department prior to arrival and was noted to have a distal humerus fracture. Patient was transferred to [facility] ED for orthopedic consultation. Patient denies [...] Culture. Procedure Abnormality Status --------- ------ Complete Urinalysis[[id number]] Please view results for these tests on [...] right arm injury. Patient was seen at [facility] prior to arrival was noted to have a distal humerus fracture. Patient transferred to [facility] ED for orthopedic consultation. Nursing notes [...] screen, x-ray right elbow. CT head from [place] ED -shows no signs of acute cranial abnormalities. CXR from [place] ED prior to arrival -blunting of bilateral [...] Emergency Medicine Provider NADIA Ruiz 06/16/23 1635 [facility] [id number] Physician Emergency department Note* Sae Conde MD - 06/16/2023 12:38 PM EDT Emergency Department Encounter [facility] EMERGENCY DEPT Patient: Ezra Gonzalez : [...] [employer] Sae Conde MD 06/16/23 1626 [employer] Phone: 1(850) 777-581409-30-2023 Discharge summary Author Lali Pimentel [facility] December 27, 2022 10:31pm Note Date/Time December 27, 2022 3:52pm [facility] Medical Records Department [address] [place] [address] Emergency Department Summary 12/27/22 MR#: [id number] Acct: [id number] Name: EZRA GONZALEZ Rep #:[id number] : 1935 87 From: Lali Pimentel MD PCP: Dr. Rosemary Doran MD Status:ADM MARIELOS Location: [place] [address] HPI History of Present Illness Chief Complaint: [...] repeat a phrase her speech is garbled. 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 Neurology from [facility] felt that the patient should [...] Provider] - Disposition Disposition: Acute Care Hospital [facility] What to do if you have Problems For any increased pain, shortness of breath, bleeding, nausea or vomiting, chestpain, or any unexpected problems, contact your Primary Care Provider. Call [facility] ([phone]) or report to the closest Emergency Room. Call 911 if necessary. 12/27/222230 <Electronically signed by Lali Pimentel MD> Cosigner Signature (if applicable): CC: Dr. Rosemary Doran MD ~ Signed [facility] Work Phone: 1(526) 115-950909-29-2023 History and physical note Author Lynn Horn [facility] December 27, 2022 6:54pm Note Date/Time December 27, 2022 5:12pm [facility] Medical Records Department [address] [place] [address] H&P Exam - Hospitalist 12/27/22 1709 MR#: [id number] Acct: [id number] Name: EZRA GONZALEZ Rep #:[id number] : 1935 87 From: Lynn Horn DO PCP: Dr. Rosemary Doran MD Status:ADM MARIELOS Location: [place] [id number] HPI - General General Date of Admission: 12/27/22 Date of Service: 12/27/22 Chief Complaint: Speech abnormalities HPI Narrative EZRA GONZALEZ, is a 87 F who presented to the emergency department at [facility] on 12/27/2022 with speech abnormalities that started after 1 PM this afternoon. She resides at [facility]. 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 Rosemary Doran MD; Dr. Lynn Horn DO~ Signed [facility] Work Phone: 1(592) 160-931509-14-2023 Discharge summary Author María Crane [facility] December 12, 2022 1:40pm Note Date/Time December 12, 2022 1:40pm [facility] Physical Therapy [facility] [address] [place] [address] [address] [place] [id number] / REHABILITATION SERVICES DISCHARGE SUMMARY MR#: [id number] Acct: [id number] Name: EZRA GONZALEZ Rep #: [id number] : 1935 87 From: María Cooley Referring Dr.: Dr. Anant Juarez MD Status: REG RCR Insurance: [facility] [id number] SELF PAY INSURANCE Patient Information Patient Information: [...] Dr. Anant Juarez MD ~ ELR Signed [facility] Work Phone: 1(134) 283-510611-17-2007 Evaluation note* Diagnosis Onset Date Resolution Status Chronic diastolic (congestive) heart failure chronic Essential (primary) hypertension chronic Paroxysmal atrial fibrillation chronic History of coronary artery stent placement February 142006 resolved [facility] Work Phone: 1(767) 494-437711-17-2007 Evaluation note* Diagnosis Onset Date Resolution Status Chronic diastolic (congestive) heart failure chronic Essential (primary) hypertension chronic History of coronary artery stent placement February 142006 resolved Brain TIA resolved Carotid stenosis acute Difficulty with speech acute Dysarthria resolved Polyneuropathy acute [facility] Work Phone: 1(781) 474-814111-17-2007 Evaluation note* Diagnosis Onset Date Resolution Status Chronic diastolic (congestive) heart failure chronic Essential (primary) hypertension chronic History of coronary artery stent placement February 142006 resolved Brain TIA resolved Carotid stenosis acute Difficulty with speech acute Dysarthria resolved Abnormality of gait and mobility acute Carotid stenosis acute Dementia acute Polyneuropathy acute Transient ischemic attack re solved [facility] Work Phone: 1(387) 656-723211-17-2007 Evaluation note* Diagnosis Onset Date Resolution Status Longstanding persistent atrial fibrillation acute Essential (primary) hypertension chronic History of coronary artery stent placement February 142006 resolved Dementia acute Epilepsy acute Polyneuropathy acute Transient ischemic attack re solved [facility] Work Phone: Consult note Author Kvng Carney [facility] June 16, 2023 10:15am Note Date/Time June 16, 2023 10: 14am [facility] Medical Records Department [address] [place] [address] Consultation - Orthopedics 06/16/23 1012 MR#: [id number] Acct: [id number] Name: EZRA GONZALEZ Rep #:[id number] : 1935 87 From: Kvng Carney MD PCP: Dr. Rosemary Doran MD Status:REG ER Location: ED HPI Consult Data Date of Consult: 06/16/23 HPI Narrative HPI Narrative: EZRA GONZALEZ, is a 87 F who presents with a right distal humerus fracture. Patient apparently is in half-way there a fall. According to the ED physician Dr. Mack who called me today this is a closed neurovascularly intact injury. 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 Rosemary Doran MD~ Signed [facility] Work Phone: Discharge summary Author Neri Mitchell [facility] November 14, 2022 11:57am Note Date/Time November 14, 2022 11 :10am [facility] Medical Records Department [address] [place] [address] Emergency Department Summary 11/14/22 MR#: [id number] Acct: [id number] Name: EZRA GONZALEZ Rep #:[id number] : 1935 87 From: Neri Mitchell MD [...] is on warfarin has history of TIAs. 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 N.B. : The above Results were Read Back by Ban Avila MD to Neri Mitchell MD, and understanding confirmed on 11/14/2022 11:41:26 (ET). Electronically Signed: Ban Avila MD at 11:41 EDT , ADDENDUM: 11/14/22 1148 IMPRESSION: No evidence for significant stenosis or occlusion in the carotid or vertebral arteries of the neck. No evidence for large vessel occlusion the [place]. N.B. : The above [...] Fibrillation Management Discussion w/another healthcare provider: Hospitalist, Asphalt Paver Operator (Stroke neurology Dr. Tamez) and Radiologist (At 1121 for NCCT, negative for bleed) Stroke Documentation Questions Stroke Team Activated: Yes Critical Care Time Critical Care Time: Yes Critical care time (excluding procedures): 30-74 minutes (37 min), Including time spent:, Discussing w/Patient &/or Family/Jockey Valet, Discussing w/Consultants, Arranging Admission or Transfer and Performing Direct Patient Care at Bedside Discharge Plan Dx/Rx/DC Orders Clinical Impression: Brain TIA, Paroxysmal atrial fibrillation, Subtherapeutic international normalized ratio (INR) Disposition Disposition: Acute Care Hospital [facility] What to do if you have Problems For any increased pain, shortness of breath, bleeding, nausea or vomiting, chestpain, or any unexpected problems, contact your Primary Care Provider. Call [facility] ([phone]) or report to the closest Emergency Room. Call 911 if necessary. 11/14/22 1157 <Electronically signed by Neri Mitchell MD> Cosigner Signature (if applicable): CC: Dr. Rosemary Doran MD ~ Signed [facility] Work Phone: Discharge summary Author Sae Carballo [facility] December 28, 2022 11:09am Note Date/Time December 28, 2022 11:08am [facility] Medical Records Department [address] [place] [address] Instructions for Home/Discharge Instructions 12/28/22 1107 MR#: [id number] Acct: [id number] Name: EZRA GONZALEZ Rep #:[id number] : 1935 87 From: Sae fleming MD [...] MD; Dr. 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 Chronic diastolic (congestive) heart failure chronic Essential (primary) hypertension chronic Hyperlipidemia chronic Paroxysmal atrial fibrillation chronic [facility] Work Phone: Evaluation note* Diagnosis Onset Date Resolution Status Abnormality of gait and mobility acute Carotid stenosis acute Dementia acute Polyneuropathy acute Transient ischemic attack re solved [facility] Work Phone: Evaluation note* Diagnosis Onset Date Resolution Status Abnormality of gait and mobility acute Carotid stenosis acute Dementia acute Polyneuropathy acute Transient ischemic attack re solved Chronic diastolic (congestive) heart failure chronic Essential (primary) hypertension chronic Paroxysmal atrial fibrillation chronic History of coronary artery stent placement February 142006 resolved [facility] Work Phone: Evaluation note* Diagnosis Onset [...] ratio (INR) acute Paroxysmal atrial fibrillation chronic [facility] Work Phone: Evaluation note* Diagnosis Onset Date Resolution Status Abnormality of gait and mobility acute Carotid stenosis acute Dementia acute Polyneuropathy acute Transient ischemic attack re solved Chronic diastolic (congestive) heart failure chronic Essential (primary) hypertension chronic History of coronary artery stent placement February 142006 resolved Brain TIA resolved Carotid stenosis acute [facility] Work Phone: Evaluation note* Diagnosis Onset Date Resolution Status Abnormality of gait and mobility acute Carotid stenosis acute Dementia acute Polyneuropathy acute Transient ischemic attack re solved Chronic diastolic (congestive) heart failure chronic Essential (primary) hypertension chronic History of coronary artery stent placement February 142006 resolved Brain TIA resolved Carotid stenosis acute Difficulty with speech acute Dysarthria acute [facility] Work Phone: Evaluation note* Diagnosis Onset Date Resolution Status Brain TIA resolved Carotid stenosis acute Difficulty with speech acute Dysarthria resolved Abnormality of gait and mobility acute Carotid stenosis acute Dementia acute Polyneuropathy acute Transient ischemic attack re solved [facility] Work Phone: Evaluation note* Diagnosis Onset Date Resolution Status Dementia acute Epilepsy acute Polyneuropathy acute Transient ischemic attack re solved [facility] Work Phone: Evaluation note* Diagnosis Onset Date Resolution Status Dementia acute Epilepsy acute Polyneuropathy acute Transient ischemic attack re solved Longstanding persistent atrial fibrillation acute Essential (primary) hypertension chronic History of coronary artery stent placement February 142006 resolved Dementia acute Epilepsy acute Polyneuropathy acute Transient ischemic attack re solved [facility] Work Phone: Evaluation note* Diagnosis Closed displaced fracture of medial condyle of right humerus, initial encounter- Primary Closed displaced fracture of medial condyle of right humerus, initial encounter [facility] Additional Instructions Your work-up today does not show signs of heart attack or heart damage. Your Coumadin level/INR is therapeutic at 2.7. Please follow-up with your family doctor for repeat evaluation or return to the ER if you have any further concernsWAvita [facility] Work Phone: Hospital Discharge instructionsAmbulatory Orders* Physical Therapy Referral Location: None Selected [facility] Work Phone: Hospital Discharge instructions Additional Instructions Will need to follow-up Lamictal level since it is a send out. Recommend follow- up appointment with her neurologist [facility] Work Phone: Reason for referral (narrative)No reason for referral information availableWAvita Health System Work Phone: Summary Purpose Family History No Family History Records Found Relationship Condition Age at Onset Recorded Date/T maggy father Coronary artery disease Unknown brother Coronary artery disease Unknown Advance Directives No Advanced Directives Records Found Advance Directive Response Recorded Date/ Time Advance Directives Yes November 10:13am Living Will No February 11 12:11am Power of Payable Representative No February 11, 2022 12:11am Advance Directive Response Recorded Date/ Time Advance Directives Yes November 11:13am Living Will No February 11 1:11am Power of Payable Representative No February 11, 2022 1:11am Advance Directive Response Recorded Date/ Time Advance Directives Yes November 11:13am Living Will No September 08, 2022 3:33pm Power of Payable Representative No September 08 3:33pm Advance Directive Response Recorded Date/ Time Advance Directives Yes November 11:13am Living Will No November 14 11:07am Power of Payable Representative No November 14 023 11:07am Advance Directive Response Recorded Date/ Time Name of Medical Power of Payable Representative Ty nguyen November 18, 2022 7:55am Advance Directives Yes November 11:13am Living Will Yes November 18 3 7:55am Power of Payable Representative Yes November 18 023 7:55am Name of Medical Power of Payable Representative Wilfredo [place] November 14, 2022 1:26pm Advance Directive Response Recorded Date/ Time Name of Medical Power of Payable Representative Ty Campoverdei l November 18, 2022 7:55am Name of Medical Power of Payable Representative Wilfredo Chiangastrodrigue November 14, 2022 1:26pm Advance Directives Yes November 11:13am Living Will No December 27, 2022 7:16pm Power of Payable Representative No November 7:16pm Advance Directive Response Recorded Date/ Time Name of Medical Power of Payable Representative Ty nguyen November 18, 2022 6:55am Name of Medical Power of Payable Representative Wilfredo [place] November 14, 2022 12:26pm Advance Directives Yes November 10:13am Living Will No December 27, 2022 6:16pm Power of Payable Representative No November 6:16pm Advance Directive Response Recorded Date/ Time Advance Directives Yes November 10:13am Living Will No December 27, 2022 6:16pm Power of Payable Representative No November 6:16pm Advance Directive Response Recorded Date/ Time Name of Medical Power of Payable Representative SON--JACK June 16, 2023 8:32am Advance Directives Yes November 11:13am Living Will Yes June 16, 2023 8:32am Power of Payable Representative Yes June 15 8:32am Latest Code Status on File Code Status Date Activated Date Inactivated Comments Full Code 06/16/2023 4:39 PM 06/20/2023 7:46 PM Advance Directive Response Recorded Date/ Time Living Will Yes June 16, 2023 7:32am Power of Payable Representative Yes June 15 7:32am Advance Directives Yes November 10:13am Advance Directive Response Recorded Date/ Time Living Will Yes June 16, 2023 8:32am Do you have a Healthcare Power of Payable Representative? Yes June 16, 2023 8:32am Advance Directives Yes November 11:13am Advance Directive Response Recorded Date/ Time Living Will No December 27, 2022 7:16pm Do you have a Healthcare Power of Payable Representative? No December 27, 2022 7:16pm Living Will Yes June 16, 2023 8:32am Do you have a Healthcare Power of Payable Representative? Yes June 16, 2023 8:32am Advance Directives Yes November 11:13am Advance Directive Response Recorded Date/ Time Living Will No December 27, 2022 7:16pm Do you have a Healthcare Power of Payable Representative? No December 27, 2022 7:16pm Do you have a Healthcare Power of Payable Representative? Yes September 08, 2024 12:26pm Advance Directives Yes November 11:13am Advance Directive Response Recorded Date/ Time Living Will No December 27, 2022 7:16pm Do you have a Healthcare Power of Payable Representative? No December 27, 2022 7:16pm Do you have a Healthcare Power of Payable Representative? Yes September 10, 2024 5:17pm Do you have a Healthcare Power of Payable Representative? Yes September 08, 2024 12:26pm Advance Directives Yes November 11:13am Advance Directive Response Recorded Date/ Time Do you have a Healthcare Power of Payable Representative? Yes September 10, 2024 5:17pm Do you have a Healthcare Power of Payable Representative? Yes September 08, 2024 12:26pm Advance Directives [...] for Visit Atherosclerotic hear t disease of galena coronary artery without angina pectoris Chronic diastolic [...] TIA SYMPTOMS, HX OF DM, AFIB confusion 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 (current) use 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 EORDER FOR LABS [...] TIA SYMPTOMS, HX OF DM, AFIB confusion 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 (current) use 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 EORDER FOR LABS FROM DR JUAREZ Consult LEFT ICA STENOSIS 6 M FU W SPIN INSTRUCTOR per SPIN INSTRUCTOR GAIT,POLYNEUROPATHY,LUMBAR COMPRESSION FX/RX HERE GAIT DISORDER [...] LEFT ICA STENOSIS 6 M FU W SPIN INSTRUCTOR per SPIN INSTRUCTOR GAIT,POLYNEUROPATHY,LUMBAR COMPRESSION FX/RX HERE GAIT DISORDER TIA Reason for Visit Abnormality of gait and mobility Carotid stenosis Dementia Polyneuropathy Transient ischemic attack Chronic diastolic (congestive) heart failure Essential (primary) hypertension Paroxysmal atrial fibrillation History of coronary artery stent placement Brain TIA Subtherapeutic international normalized ratio (INR) Paroxysmal atrial fibrillation Chief Complaint TIA SYMPTOMS, HX OF DM, AFIB confusion 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 (current) use 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 EORDER FOR LABS FROM DR JUAREZ Consult LEFT ICA STENOSIS 6 M FU W SPIN INSTRUCTOR per SPIN INSTRUCTOR GAIT,POLYNEUROPATHY,LUMBAR COMPRESSION FX/RX HERE GAIT DISORDER [...] LEFT ICA STENOSIS 6 M FU W SPIN INSTRUCTOR per SPIN INSTRUCTOR GAIT,POLYNEUROPATHY,LUMBAR COMPRESSION FX/RX HERE GAIT DISORDER TIA TIA (cardiology) TIA (cardiology) tia SKILLED NURSING LAB WORK CONSULT-CAROTID STENOSIS Reason for Visit [...] LEFT ICA STENOSIS 6 M FU W SPIN INSTRUCTOR per SPIN INSTRUCTOR GAIT,POLYNEUROPATHY,LUMBAR COMPRESSION FX/RX HERE GAIT DISORDER TIA TIA (cardiology) TIA (cardiology) tia SKILLED NURSING LAB WORK CONSULT-CAROTID STENOSIS LABWORK SKILLED NURSING LABWORK Reason for Visit Abnormality of gait and mobility Carotid stenosis Dementia Polyneuropathy Transient ischemic attack Chronic diastolic (congestive) heart failure Essential (primary) hypertension History of coronary artery stent placement Brain TIA Carotid stenosis Chief Complaint TIA SYMPTOMS, HX OF DM, AFIB confusion assisted (current) use 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 EORDER FOR LABS FROM DR JUAREZ Consult LEFT ICA STENOSIS 6 M FU W SPIN INSTRUCTOR per SPIN INSTRUCTOR GAIT,POLYNEUROPATHY,LUMBAR COMPRESSION FX/RX HERE GAIT DISORDER TIA TIA (cardiology) TIA (cardiology) tia SKILLED NURSING LAB WORK CONSULT-CAROTID STENOSIS LABWORK SKILLED NURSING LABWORK DYARTHRIA DYARTHRIA Reason for Visit Abnormality of gait and mobility Carotid stenosis Dementia Polyneuropathy Transient ischemic attack Chronic diastolic (congestive) heart failure Essential (primary) hypertension History of coronary artery stent placement Brain TIA Carotid stenosis Difficulty with speech Dysarthria Chief Complaint LEFT ICA STENOSIS 6 M FU W SPIN INSTRUCTOR per SPIN INSTRUCTOR GAIT,POLYNEUROPATHY,LUMBAR COMPRESSION FX/RX HERE GAIT DISORDER TIA TIA (cardiology) TIA (cardiology) tia SKILLED NURSING LAB WORK CONSULT-CAROTID STENOSIS LABWORK SKILLED NURSING LABWORK DYARTHRIA DYARTHRIA DYARTHRIA SKILLED NURSING LABWORK 4 month f/u EORDER Reason for Visit Chronic diastolic (c ongestive) heart failure Essential (primary) hypertension History of coronary artery stent placement Brain TIA Carotid stenosis Difficulty with speech Dysarthria Polyneuropathy Chief Complaint 6 M FU W SPIN INSTRUCTOR per SPIN INSTRUCTOR GAIT,POLYNEUROPATHY,LUMBAR COMPRESSION FX/RX HERE GAIT DISORDER TIA TIA (cardiology) TIA (cardiology) tia SKILLED NURSING LAB WORK CONSULT-CAROTID STENOSIS LABWORK SKILLED NURSING LABWORK DYARTHRIA DYARTHRIA DYARTHRIA SKILLED NURSING LABWORK 4 month f/u EORDER Reason for Visit Chronic diastolic (c ongestive) heart failure Essential (primary) hypertension History of coronary artery stent placement Brain TIA Carotid stenosis Difficulty with speech Dysarthria Abnormality of gait and mobility Carotid stenosis Dementia Polyneuropathy Transient ischemic attack Chief Complaint TIA TIA (cardiology) TIA (cardiology) tia SKILLED NURSING LAB WORK CONSULT-CAROTID STENOSIS LABWORK SKILLED NURSING LABWORK DYARTHRIA DYARTHRIA DYARTHRIA SKILLED NURSING LABWORK 4 month f/u EORDER SKILLED NURSING LABWORK Reason for Visit Brain TIA Carotid stenosis Difficulty with speech Dysarthria Abnormality of gait and mobility Carotid stenosis Dementia Polyneuropathy Transient ischemic attack Chief Complaint SKILLED NURSING LABWORK 4 month f/u EORDER SKILLED NURSING LABWORK SKILLED NURSING LAB WORK SKILLED NURSING LABWORK Reason for Visit Dementia Epilepsy Polyneuropathy Transient ischemic attack Chief Complaint 4 month f/u EORDER SKILLED NURSING LABWORK SKILLED NURSING LAB WORK SKILLED NURSING LAB WORK SKILLED NURSING LABWORK 7 m fu 4 month f/u Reason for Visit Dementia Epilepsy Polyneuropathy Transient ischemic attack Longstanding persistent atrial fibrillation Essential (primary) hypertension History of coronary artery stent placement Dementia Epilepsy Polyneuropathy Transient ischemic attack Chief Complaint SKILLED NURSING LABWORK SKILLED NURSING LAB WORK SKILLED NURSING LAB WORK SKILLED NURSING LABWORK LABWORK 7 m fu 4 month f/u LABWORK Reason for Visit Longstanding persist ent atrial fibrillation Essential (primary) hypertension History of coronary artery stent placement Dementia Epilepsy Polyneuropathy Transient ischemic attack Chief Complaint SKILLED NURSING LABWORK SKILLED NURSING LAB WORK SKILLED NURSING LAB WORK SKILLED NURSING LABWORK LABWORK 7 m fu 4 month f/u LABWORK [place]ALL Reason for Visit Longstanding persist ent atrial fibrillation Essential (primary) hypertension History of coronary artery stent placement Dementia Epilepsy Polyneuropathy Transient ischemic attack Chief Complaint SKILLED NURSING LAB WOR K SKILLED NURSING LAB WORK SKILLED NURSING LABWORK LABWORK 7 m fu 4 month f/u LABWORK [place]ALL [place] LABWORK Reason for Visit Longstanding persist ent atrial fibrillation Essential (primary) hypertension History of coronary artery stent placement Dementia Epilepsy Polyneuropathy Transient ischemic attack Chief Complaint Admit Date SKILLED NURSING LAB WORK February 05, 2024 5:00am SKILLED NURSING LAB WORK March 04, 2024 5:00am SKILLED NURSING LAB WORK March 08, 2024 5:00am SKILLED NURSING LAB WORK March 10 4:00am LABWORK March 17, 2024 5:00am LABWORK March 19, 2024 5:00am LABWORK March 25, 2024 5:00am SKILLED NURSING LAB WORK March 26 5:00am SKILLED NURSING LAB WORK March 29 5:00am SKILLED NURSING LAB WORK April 05, 2024 5:00am SKILLED NURSING LAB WORK April 06, 2024 5:00am LABWORK April 09, 2024 5 :00am SKILLED NURSING LAB WORK April 14, 2024 4:00am SKILLED NURSING LAB WORK April 28, 2024 5:00am LABWORK May 05, 2024 5 :00am 8 mo fu May 10, 2024 2:34pm SKILLED NURSING LAB WORK May 19 5:00am Reason for Visit Admit Date Dementia May 10, 2024 2:34pm Epilepsy May 10, 2024 2:34pm Transient ischemic attack May 10, 2024 2:34pm Chief Complaint Admit Date SKILLED NURSING LAB WORK March 04, 2024 5:00am SKILLED NURSING LAB WORK March 08, 2024 5:00am SKILLED NURSING LAB WORK March 10 4:00am LABWORK March 17, 2024 5:00am LABWORK March 19, 2024 5:00am LABWORK March 25, 2024 5:00am SKILLED NURSING LAB WORK March 26 5:00am SKILLED NURSING LAB WORK March 29 5:00am SKILLED NURSING LAB WORK April 05, 2024 5:00am SKILLED NURSING LAB WORK April 06, 2024 5:00am LABWORK April 09, 2024 5 :00am SKILLED NURSING LAB WORK April 14, 2024 4:00am SKILLED NURSING LAB WORK April 28, 2024 5:00am LABWORK May 05, 2024 5 :00am 8 mo fu May 10, 2024 2:34pm SKILLED NURSING LAB WORK May 12 5:00am SKILLED NURSING LAB WORK May 19 5:00am SKILLED NURSING LAB WORK June 09, 2024 5 :00am Chief Complaint Admit Date SKILLED NURSING LAB WORK March 10 4:00am LABWORK March 17, 2024 5:00am LABWORK March 19, 2024 5:00am LABWORK March 25, 2024 5:00am SKILLED NURSING LAB WORK March 26 5:00am SKILLED NURSING LAB WORK March 29 5:00am SKILLED NURSING LAB WORK April 05, 2024 5:00am SKILLED NURSING LAB WORK April 06, 2024 5:00am LABWORK April 09, 2024 5 :00am SKILLED NURSING LAB WORK April 14, 2024 4:00am SKILLED NURSING LAB WORK April 28, 2024 5:00am LABWORK May 05, 2024 5 :00am 8 mo fu May 10, 2024 2:34pm SKILLED NURSING LAB WORK May 12 5:00am SKILLED NURSING LAB WORK February 19th, 202 5 5:00am SKILLED NURSING LAB WORK June 09, 2024 5 :00am SKILLED NURSING LAB WORK June 16, 2024 5 :00am [...] Admit Date LABWORK March 25, 2024 5:00am SKILLED NURSING LAB WORK March 26 5:00am SKILLED NURSING LAB WORK March 29 5:00am SKILLED NURSING LAB WORK April 05, 2024 5:00am SKILLED NURSING LAB WORK April 06, 2024 5:00am LABWORK April 09, 2024 5 :00am SKILLED NURSING LAB WORK April 14, 2024 4:00am SKILLED NURSING LAB WORK April 28, 2024 5:00am LABWORK May 05, 2024 5 :00am 8 mo fu May 10, 2024 2:34pm SKILLED NURSING LAB WORK May 12 5:00am SKILLED NURSING LAB WORK May 19 5:00am SKILLED NURSING LAB WORK June 09, 2024 5 :00am SKILLED NURSING LAB WORK June 16, 2024 5 :00am 1 Y FU July 01, 2024 10:3 5am SKILLED NURSING LAB WORK July 19, 2024 4 :00am Chief Complaint Admit Date SKILLED NURSING LAB WORK May 12 5:00am SKILLED NURSING LAB WORK May 19 5:00am SKILLED NURSING LAB WORK June 09, 2024 5 :00am SKILLED NURSING LAB WORK June 16, 2024 5 :00am 1 Y FU July 01, 2024 10:3 5am SKILLED NURSING LAB WORK July 19, 2024 4 :00am SKILLED NURSING LAB WORK August 18, 2024 5:0 0am SEIZURE September 08, 2024 12:2 0pm Reason for Visit Admit Date Longstanding persistent atrial fibrillat ion July 01, 2024 10:35am Essential (primary) hypertension July 012024 10:35am History of coronary artery stent placeme nt July 01, 2024 10:35am Chief Complaint Admit Date SKILLED NURSING LAB WORK May 19 5:00am SKILLED NURSING LAB WORK June 09, 2024 5 :00am SKILLED NURSING LAB WORK June 16, 2024 5 :00am 1 Y FU July 01, 2024 10:3 5am SKILLED NURSING LAB WORK July 19, 2024 4 :00am SKILLED NURSING LAB WORK August 18, 2024 5:0 0am SEIZURE September 08, 2024 12:2 0pm Chief Complaint Admit Date SKILLED NURSING LAB WORK May 19 5:00am SKILLED NURSING LAB WORK June 09, 2024 5 :00am SKILLED NURSING LAB WORK June 16, 2024 5 :00am 1 Y FU July 01, 2024 10:3 5am SKILLED NURSING LAB WORK July 19, 2024 4 :00am SKILLED NURSING LAB WORK August 18, 2024 5:0 0am SEIZURE September 08, 2024 12:2 0pm STROKE VS SEIZURE September 10, 2024 4:03 pm Chief Complaint Admit Date SKILLED NURSING LAB WORK May 19 5:00am SKILLED NURSING LAB WORK June 09, 2024 5 :00am SKILLED NURSING LAB WORK June 16, 2024 5 :00am 1 Y FU July 01, 2024 10:3 5am SKILLED NURSING LAB WORK July 19, 2024 4 :00am SKILLED NURSING LAB WORK August 18, 2024 5:0 0am [...] 2024 4 :03pm Chief Complaint Admit Date SKILLED NURSING LAB WORK May 19 5:00am SKILLED NURSING LAB WORK June 09, 2024 5 :00am SKILLED NURSING LAB WORK June 16, 2024 5 :00am 1 Y FU July 01, 2024 10:3 5am SKILLED NURSING LAB WORK July 19, 2024 4 :00am SKILLED NURSING LAB WORK August 18, 2024 5:0 0am SEIZURE September 08, 2024 12:2 0pm STROKE VS SEIZURE September 10, 2024 4:03 pm STROKE VS SEIZURE September 11, 2024 12:1 4pm 2 SEIZURES/ IN [facility] September 13, 2024 2:04 pm EORDERS September 13, 2024 3:03 pm Reason for Visit Admit Date Longstanding persistent atrial fibrillat ion July 01, 2024 10:35am Essential (primary) hypertension July 012024 10:35am History of coronary artery stent placeme nt July 01, 2024 10:35am Difficulty with speech September 10, 2024 4 :03pm Epilepsy September 13, 2024 2:04 pm Chief Complaint Admit Date SKILLED NURSING LAB WORK August 18, 2024 5:0 0am SEIZURE September 08, 2024 12:2 0pm STROKE VS SEIZURE September 10, 2024 4:03 pm STROKE VS SEIZURE September 11, 2024 12:1 4pm 2 SEIZURES/ IN [facility] September 13, 2024 2:04 pm EORDERS September 13, 2024 3:03 pm LABWORK September 17, 2024 5:00 am SKILLED NURSING LAB WORK September 22, 2024 4: 00am SKILLED NURSING LAB WORK September 24, 2024 5: 00am SKILLED NURSING LAB WORK October 04, 2024 5:0 0am SKILLED NURSING LAB WORK October 11, 2024 4: 00am SKILLED NURSING LAB WORK October 25, 2024 5: 00am [...] 2:04pm Transient ischemic attack September 13 2:04pm 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 DATE CREATED AUTHOR AUTHOR'S ORGANIZ ATION 06/26/2023 [facility] DATE CREATED AUTHOR AUTHOR'S ORGANIZ ATION 12/12/2024 [facility] Source Comments (unrecognize d section and content) In the event this informatio n is protected by the Federal Confidentiality of Alcohol and Drug Abuse Patient Records regulations: The Federal rules restrict any use of the information to criminally investigate or prosecute any alcohol or drug abuse patient[facility] the event this information is protected by the Federal Confidentiality of Alcohol and Drug Abuse Patient Records regulations: The Federal rules restrict any use of the information to criminally investigate or prosecute any alcohol or drug abuse patient.[facility] the event this information is protected by the Federal Confidentiality of Alcohol and Drug Abuse Patient Records regulations: The Federal rules restrict any use of the information to criminally investigate or prosecute any alcohol or drug abuse patient.[facility] the event this information is protected by the Federal Confidentiality of Alcohol and Drug Abuse Patient Records regulations: The Federal rules restrict any use of the information to criminally investigate or prosecute any alcohol or drug abuse patient.[facility] the event this information is protected by the Federal Confidentiality of Alcohol and Drug Abuse Patient Records regulations: The Federal rules restrict any use of the information to criminally investigate or prosecute any alcohol or drug abuse patient.[facility] Reason for Visit (unrecogniz ed section and content) Reason Onset Date Comments Refill Request Refill Request 11/11/2019 Reason Comments Arm Injury Pt arrives via [facility] ambulance from [facility] with complaints of right elbow fracture. Patient was sent here for ortho consult. No pain on arrival. Arrives with right arm splinted. Specialty Diagnoses / Procedures Referred By Contac t Referred To Contact Diagnoses Closed displaced fracture of medial condyle of right humerus, initial encounter Procedures .. Jayshree Cortez MD [address] [place] [address] [facility] Emergency Dept [address] [place] [id number] Referral ID Status Reason Start Date Expiration Date Visits Re quested Visits Authorized [id number] 1 1 Telephone Encounter - Anne Marie [...] Visit date not found Patient Phone numbers: [phone] (home) Request is for script(s) to be [...] MD Primary Care Provider Active Suze Prebish ENGINEER THIRD ASSISTANT, ENGINEER THIRD ASSISTANT-C Attending Provider, Referring Pr ovider Active Team [...] Rosemary Doran MD Primary Care Provider Active Senior Actuarial Analyst Relationship Specialty Start Date End Date Alexandra Hagen [address] [facility] [address] [place] [id number] PCP - General Family Medicine 06/20/23 Team [...] une 2024 End: September 11, 2024 Dr. Dimtriy Diop MD Other Provider Active Sta rt: [...] Active Sta rt: September 11, 2024 Dr. lM Morris MD Other Provider Active Start : [...] from all sources in 24 hours. 1511 ([facility] Hold - Provider: Automatic Transfer Provider - Reason: Patient not available)2025 ([facility] Unhold - Provider: Automatic Transfer Provider) acetaminophen (Tylenol) tablet 650 mg(Linked Group 2) 650 mg, Oral, Every 6 hours PRN, mild pain (1-3), fever, For temp greater than 100.4 F (38 C), Starting on Fri06/16/23 at 1639, Maximum dose of acetaminophen is 4000 mg from all sources in 24 hours. 151 ([facility] Hold - Provider: Automatic Transfer Provider - Reason: Patient not available)2025 ([facility] Unhold - Provider: Automatic Transfer Provider) dextrose 5 % infusion 100 mL/hr, IntraVENous, PRN, Blood sugar less than 70mg/dL, Starting on Fri06/17/23 at 2131, Start infusion following administration of dextrose 50% or glucagon. 1511 ([facility] Hold - Provider: Automatic Transfer Provider - Reason: Patient not available)2025 ([facility] Unhold - Provider: Automatic Transfer [...] Glucostabilizer, dose as instructed per system. 1511 ([facility] Hold - Provider: Automatic Transfer Provider - Reason: Patient not available)2025 ([facility] Unhold - Provider: Automatic Transfer [...] 15 minutes x2 and notify provider. 1511 ([facility] Hold - Provider: Automatic Transfer Provider - Reason: Patient not available)2025 ([facility] Unhold - Provider: Automatic Transfer [...] 15 minutes x2 and notify provider. 1511 ([facility] Hold - Provider: Automatic Transfer Provider - Reason: Patient not available)2025 ([facility] Unhold - Provider: Automatic Transfer [...] of each other unless specifically ordered. 1511 ([facility] Hold - Provider: Automatic Transfer Provider - Reason: Patient not available)2025 ([facility] Unhold - Provider: Automatic Transfer Provider) naloxone (Narcan) injection 0.4 mg 0.4 mg, IntraVENous, Every 5 min PRN, opioid reversal, respiratory depression, Starting on Fri06/16/23 at 1647, +++ For RR <10, pinpoint pupils, over sedation for opioid reversal - MUST notify mold construction supervisor provider immediately after first dose, may give IM or SQ if no IV access +++ 1511 ([facility] Hold - Provider: Automatic Transfer Provider - Reason: Patient not available)2025 ([facility] Unhold - Provider: Automatic Transfer Provider) ondansetron (Zofran) injection 4 mg(Linked Group 3) 4 mg, IntraVENous, Every 6 hours PRN, nausea, vomiting, Starting on Fri06/16/23 at 1639, 1st Line. Give IV if patient is unable to take orally. If inadequate response within 60 minutes, proceed to next-line agent or contact provider if no further options ordered. 151 ([facility] Hold - Provider: Automatic Transfer Provider - Reason: Patient not available)2025 ([facility] Unhold - Provider: Automatic Transfer [...] blister pack until just before administering. 1511 ([facility] Hold - Provider: Automatic Transfer Provider - Reason: Patient not available)2025 ([facility] Unhold - Provider: Automatic Transfer Provider) oxyCODONE (Roxicodone) immediate release tablet 2.5 mg(Linked Group 4) 2.5 mg, Oral, Every 4 hours PRN, moderate pain (4-6), Starting on Fri06/16/23 at 1639 151 ([facility] Hold - Provider: Automatic Transfer Provider - Reason: Patient not available)2025 ([facility] Unhold - Provider: Automatic Transfer Provider) 0924 (See Alternative - Provider: Juanjo Villalba RN) oxyCODONE (Roxicodone) immediate release tablet 5 mg(Linked Group 4) 5 mg, Oral, Every 4 hours PRN, severe pain (7-10), Starting on Fri06/16/23 at 1639 151 ([facility] Hold - Provider: Automatic Transfer Provider - Reason: Patient not available)2025 ([facility] Unhold - Provider: Automatic Transfer Provider) 0924 (Given - Provider: Juanjo Villalba RN) polyethylene glycol (PEG) 3350 (Miralax) packet 17 g 17 g, Oral, Daily PRN, constipation, Starting on Fri06/16/23 at 1639, 1st line for treatment of constipation - give scheduled if no bowel movement in past 24 hours. 151 ([facility] Hold - Provider: Automatic Transfer [...] BE BASED ON THE PRIMARY CLINICAL RECORDS. [employer] provides no warranty or guarantee of the accuracy or completeness of information in this document.
[2024-12-24 07:40] LABS: Mucous, Urine 0 SEEN /hpf (<or=2+); Red Blood Cells-Urine 0 SEEN /hpf (0-5); Squamous Epithelial Cells - UA 0 SEEN /hpf (5-10)
[2024-12-24 07:49] LABS: Hematocrit 40.3 % (37-47); Hemoglobin 13.5 g/dL (12.0-15.0); Mean Corp Hgb Conc 33.5 g/dL (32-36); Mean Corpuscular Volume 96.0 fL (81-99); Mean Platelet Vol. 11.0 fl (6.2-12.0); Platelet Count 298 K/mm3 (150-450); RBC Distribution Width CV 12.8 % (11.6-14.6); RBC Distribution Width SD 44.9 fl (35.1-43.9); Red Blood Count 4.20 M/mm3 (4.2-5.4); White Blood Count 10.6 K/mm3 (4.4-11.0)
[2024-12-24 08:29] LABS: Anion Gap 14 (5-15); BUN 17 mg/dL (4-19); BUN/Creat Ratio 23.8 RATIO (10-20); Calcium,Total 9.0 mg/dL (7.6-11.0); Carbon Dioxide 21.5 mmol/L (21.0-32.0); Chloride 104 mmol/L (98-108); Glucose 127 mg/dL (70-99); Potassium 4.8 mmol/L (3.3-5.1)
[2024-12-24 08:34] LABS: Color, Urine Yellow (Yellow); Glucose, Dipstick Normal (Normal); Ketone-Dipstick Negative (Negative); Leukocyte Esterase-Dipstick 100 /ul (Negative); Nitrite-Dipstick Positive (Negative); Occult Blood-Urine Negative /ul (Negative); Protein-Dipstick Negative (Negative); Specific Gravity, Urine 1.010 (1.002-1.030); Urine Bilirubin Dipstick Negative (Negative)
== END ==
PROVIDERS: Visit Provider Family Medicine
DX: N39.0 Urinary tract infection, site not specified (principal)
CPT/HCPCS: 36415; 80048; 81001; 82542; 85027; 87077; 87086; 87088; 87186

== ENCOUNTER → 2024-12-30 | Outpatient (REF) | payer MEDICARE, SELFPAY ==
[2024-12-30 08:08] LABS: INR Fingerstick 2.0
== END ==
PROVIDERS: Visit Provider Internal Medicine Cardiovascular Disease
DX: I10 Essential (primary) hypertension (principal); Z79.01 Long term (current) use 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
CPT/HCPCS: 36416; 85610

== ENCOUNTER → 2025-02-01 | Outpatient (REF) | payer MEDICARE, SELFPAY ==
--- OUTSIDE RECORDS SUMMARY | 2025-02-01 04:45 | XMS RPT_ITS | CCD ---
Author Organization [facility] Care Team Providers Care Retail Advertising Executive Name Role Phone LISHNEVSKI, ALEXIA Unavailable Unavailable [...] Mohan Álvarez Unavailable Bishop, Rickey Clive Unavailable [phone] Rosemary Doran Primary Care Provider Lishnevski, Alexia Primary Care Provider Zenaida Henderson Unavailable Dr. Rosemary Doran Primary Care Provider Dr. Rosemary Doran Referring Provider Roof MARKET RESEARCH MANAGER, MARKET RESEARCH MANAGER-Adeel Arnett Attending Provider Dr. Rosemary Doran Primary [...] Dr. Betina Carver Attending Provider Dr. Rosemary Dorna Referring Provider NADIA Hoff Attending Provider Dr. [...] Provider Dr. Anant Juarez MD Referring Provider Xiao LENNON, Dr. Alexandra Leger Primary Care Provider Cesar Cole MD Attending Provider Unavailable Dr. Kvng Ochoa MD Attending Provider Unavail Dr. Kvng Arreguin MD Referring Provider Unavail able Yinka Gipson Attending Provider [phone] Yinka Gipson Referring Provider Dr. Anoop Blackmon MD Attending Physician Dr. Anoop Blackmon MD Emergency Department Physician Dr. Kvng Ochoa MD Primary Care Physician Ammy vailable Dr. Kvng Ochoa DO Primary Care Physician Dr. Teri Garcia DO Emergency Department Physi aixa Dr. Matthew Oro DO Admitting Physician Dr. Matthew Oro DO Attending Physician Amos LENNON, Dr. Baker Nurse Practitioner Gillian LENNON, Dr. Rowland Nurse Practitioner Pauline LENNON, Julia Nurse Practitioner Ssoa PEACE, Keyshawn Nurse Practitioner Jadon LENNON, Dr. Izaguirre Nurse Practitioner Delvis LENNON, Meagan Nurse Practitioner MAMADOU HICKS MD Nurse Practitioner Lester LENNON, Cara Nurse Practitioner Flynn LENNON, Dr. Moseley Nurse Practitioner Mukesh LENNON, Robinson Nurse Practitioner Olman LENNON, Aura Nurse Practitioner Mervat LENNON, Eric Nurse Practitioner Unavailable Stephen LENNON, Camila Nurse Practitioner Unavailab kamari Jacobson DO, Dr. Manzanraes Nurse Practitioner Joi LENNON, Dr. Phelps Nurse Practitioner Alexandra LENNON, Dr. Bull Nurse Practitioner Johana LENNON, Dr. Grossman Nurse Practitioner Shaheed LENNON, Dr. Kinney Nurse Practitioner Marilu LENNON, Dr. Montana Nurse Practitioner Ely LENNON, Dr. Parkinson Nurse Practitioner Desirae LENNON, Dr. Liz Bagley Nurse Practitioner Chris LENNON, Dr. Mckenna Nurse Practitioner Karen LENNON, Dr. Chong Nurse Practitioner Mariaa LENNON, Dr. Sanchez Nurse Practitioner Kory LENNON, Dr. White Nurse Practitioner Unavailabl karlene Leonard [place], [facility] [place] Unavailjosh Oro DO, Dr. Castro Nurse Practitioner Jerrica LENNON, Dr. Ny Attending Physician Douglas LENNON, Cesar Attending Physician Unavailable Don LNENON, Dr. Locke Attending Physician Matthew ZUNIGA, Yinka Attending Physician Teo LENNON, Dr. Jamal Gu Attending Physician Matthew Oro Admitting Unavailable Matthew Oro Attending Unavailable Kvng Ochoa Primary Care Unavailable Adeli, Amir Consulting Unavailable Zha, Janett Consulting Unavailable Julia Carpenter Consulting Unavailable Keyshawn Swan Consulting Unavailable Dmitriy Diop Consulting Unavailable Meagan Edmondson Consulting Unavailable MAMADOU HICKS Consulting Unavailable Cara Batista Consulting Unavailable Lorelei Pruett Consulting Unavailable Robinson Mayorga Consulting Unavailable Aura Thurman Consulting Unavailable Eric Crowell Consulting Unavailable Camila Mitchell Consulting Unavailable Kavon, Glenna Consulting Unavailable Joi, Lenin Consulting Unavailable Alexandra, Ml Consulting Unavailable Bittar, Chauncey Consulting Unavailable Hummel, Nirmal Consulting Unavailable Marilu, Rubén Consulting Unavailable Ridslim, Iggy Consulting Unavailable Desirae, Liz Bagley Consulting UnavailBala Iqbal Consulting Unavailable Jones, Castillo Consulting Unavailable Mariaa, Daniel Consulting Unavailable Kory, Cindy Consulting Unavailable Horacio, Ashu Consulting Unavailable Yinka Johnson Attending Unavailable Yinka Johnson Referring Unavailable Ochoa, Kvng Primary Care Unavailable Kvng Whalen Attending Unavailable Jolliff, Alexandra S Primary Care Unavailable Ochoakhris MARTINEZ Kvng Attending Unavailable Jolliff, Alexandra S Primary Care Unavailable Ochoa OLS, Kvng Attending Unavailable Don MARTINEZ, Kvng Referring Unavailable Ochoa, Kvng Primary Care Unavailable Douglas Antonio MARTINEZril Attending Unavailable Don, Kvng Primary Care Unavailable Blackmon Anoop Attending Unavailable Blackmon, Anoop Referring Unavailable Ochoa OLS, Kvng Primary Care Unavailable Kvng Whalen Attending Unavailable Ochoa, Kvng Primary Care Unavailable Kvng Whalen Attending Unavailable Jolliff, Alexandra S Primary Care Unavailable Kvng Whalen Referring Unavailable Kvng Whalen Attending Unavailable Jolliff, Alexandra S Primary Care Unavailable Douglas OLS, [place] Attending Unavailable Ochoa, Kvng Primary Care Unavailable Douglas OLS, [place] Attending Unavailable Ochoa, Kvng Primary Care Unavailable Ochoakhris MARTINEZ Kvng Referring Unavailable Kvng Whalen Attending Unavailable Ocoha, Kvng Primary Care Unavailable Kvng Whalen Attending Unavailable Jolliff, Alexandra S Primary Care Unavailable Kvng Whalen Attending Unavailable Jolliff, Alexandra S Primary Care Unavailable Kvng Whalen Attending Unavailable Jolliff, Alexandra S Primary Care Unavailable Don MARTINEZ Kvng Attending Unavailable Jolliff, Alexandra S Primary Care Unavailable OchoaKvng Mitchell Attending Unavailable Jolliff, Alexandra S Primary Care Unavailable Ochoakhris MARTINEZ Kvng Attending Unavailable Jolliff, Alexandra S Primary Care Unavailable Anant Juarez Attending Unavailable Anant Juarez Referring Unavailable Ochoa, Kvng Primary Care Unavailable Douglas OLS, Cesar Attending Unavailable Jolliff, Alexandra S Primary Care Unavailable OchoaKvng Mitchell Attending Unavailable Ochoa, Kvng Primary Care Unavailable Ochoa OLS, Kvng Attending Unavailable Ochoa, Kvng Primary Care Unavailable Douglas OLS, Cesar Attending Unavailable Ochoa, Kvng Primary Care Unavailable Ochoa OLS, Kvgn Attending Unavailable Jolliff, Alexandra S Primary Care Unavailable Ochoa OLS, Kvng Attending Unavailable Jolliff, Alexandra S Primary Care Unavailable Douglas OLS, Cesar Attending Unavailable Douglas OLS, Cesar Referring Unavailable [...] Unavailable Jolliff, Alexandra S Primary Care Unavailable GilbertdoAnant quarles Attending Unavailable Ochoa, Kvng Referring Unavailable Ochoa, Kvng Primary Care Unavailable Yinka Johnson Attending Unavailable Ochoa, Kvng Referring Unavailable Ochoa, Kvng Primary Care Unavailable Matthew Oro Admitting Unavailable Matthew Oro Attending Unavailable Olivia Trinidad Consulting Unavailable Ochoa, Kvng Primary Care Unavailable Janett French Consulting Unavailable Julia Carpenter Consulting Unavailable Keyshawn Swan Consulting Unavailable Dmitriy Diop Consulting Unavailable Meagan Edmondson Consulting Unavailable MAMADOU HICKS Consulting Unavailable Cara Batista Consulting Unavailable Lorelei Pruett Consulting Unavailable Robinson Mayorga Consulting Unavailable Aura Thurman Consulting Unavailable Matthew Oro Consulting Unavailable Eric Crowell Consulting Unavailable Camila Mitchell Consulting Unavailable Glenna Jacobson Consulting Unavailable Lenin Tmaez Consulting Unavailable Ml Morris Consulting Unavailable Chauncey Vaughn Consulting Unavailable Nirmal Hummel Consulting Unavailable Rubén Michel Consulting Unavailable gIgy Graves Consulting Unavailable Liz Merrill Consulting UnavailBala Iqbal Consulting Unavailable Castillo Jones Consulting Unavailable Daniel Leroy Consulting Unavailable Cindy Horn Consulting Unavailable Ashu Leonard Consulting Unavailable Anant Juarez Attending Unavailable Ochoa, Kvng Referring Unavailable Ochoa, Kvng Primary Care Unavailable Jolliff, Alexandra S Referring Unavailable Douglas, [place] Attending Unavailable Jolliff, Alexandra S Primary Care Unavailable Anant Mckay Attending Unavailable Fernandoiff, Alexandra S Primary Care Unavailable Anant Juarez Attending Unavailable Rosemary Doran Referring Unavailable Jolliff, Alexandra S Primary Care Unavailable Ochoa OLS, Kvng Attending Unavailable Alexandra Hagen Primary Care Unavailable Kvng Whalen Attending Unavailable Kvng Ochoa Primary Care Unavailable Allergies Allergy Classification Reported Allergen(s) Allergy Type Date of Onset Reaction(s) Facility (20 sources) atorvastatin; Translations: [ATORVASTATIN] Drug Allergy 5 Other: See Comments [facility] (20 sources) codeine; Translations: [CODEINE] Drug Allergy 5 Unknown [facility] (20 sources) Latex; Translations: [LATEX] Propensity to adverse reactions (disorder) 5 Rash, Itching [facility] (20 sources) meperidine; Translations: [MEPERIDINE] Drug Allergy 5 GI Upset [facility] (20 sources) rosuvastatin; Translations: [ROSUVASTATIN] Drug Allergy 5 Other: See Comments [facility] (20 sources) Amiodarone Drug Allergy 2 "Hair falling out in gobs", hair loss [facility] (1 source) Amiodarone Drug Allergy 5 [facility] Medications Current Medications Medication Drug Class(es) Dates Sig (Normalized) Sig (Original) 8 hr acetaminophen 650 mg extended release oral tablet (13 sources) Start: 09-08-2024 take 1 tablet by mouth every eight hours Start: 06-20-2023 End: 07-20-2023 take 2 tablets [...] 650 mg ascorbic acid 250 mg oral ta blet (20 sources) Vitamin C Start: 05-19-2023 take 1 tablet by janel th once daily calcium carbonate 1500 mg / cholecalciferol 200 unt oral tablet (20 sources) Vitamin D Start: 09-10-2024 Start: 06-15-2020 End: 04-20-2021 Calcium Carbonate-Vitamin D3 1 EACH tablet Discontinued 1 NMA PO DAILY June 15, 2020 12:00am April 20, 2021 10:31am Start: 06-15-2020 End: 04-20-2021 Calcium Carbonate-Vitamin D3 Discontinued 1 EACH PO DAILY June 15, 2020 12:00am April 20, 2021 10:31am diclofenac sodium 0.01 mg/mg topical gel (7 sources) Nonsteroidal Anti-inflammatory Drug Start: 09-10-2024 diphenhydrAMINE hydrochloride 25 mg oral tablet (20 sources) Histamine-1 Receptor Antagonist Start: 05-19-2023 take 1 tablet by mouth at bedtime as needed Start: 11-14-2022 End: 05-15-2023 take 1 tablet [...] 06/30/2023 Active irbesartan 300 mg oral tablet (9 sources) Angiotensin 2 Receptor Antonio Start: 09-08-2024 take 1 tablet by mouth once daily levETIRAcetam 500 mg oral tablet (20 sources) Start: 09-11-2024 End: 09-13-2024 take 1 tablet by mouth twice daily Start: 01-20-2023 End: 01-23-2023 take 1 tablet by mouth twice daily Levetiracetam 250 mg tablet Discontinued 250 mg PO TWICE A DAY 60 5 January 20, 2023 8:57am January 23, 2023 4:50pm 24 hr metoprolol succinate 50 mg extended release oral tablet (20 sources) beta-Adrenergic Antonio Start: 09-08-2024 take 1 tablet by mouth once daily Start: 06-17-2023 End: 06-20-2023 take 25 mg [...] by mouth daily. 0 Active Multivitamin capsule (15 sources) Start: 12-10-2019 Start: 12-10-2019 Multivitamin c apsule Active 1 NMA PO DAILY December 10, [...] 11:00pm nitrofurantoin, macrocrystals 100 mg oral capsule (5 sources) Nitrofuran Antibacterial Start: 09-13-2024 take 1 capsule by mouth twice daily at mealtime omeprazole 20 mg delayed release oral capsule (20 sources) Proton Pump Inhibitor Start: 11-14-2022 take 1 capsule by mouth once daily Start: 01-31-2021 End: 10-18-2021 take 1 capsule [...] 0 Active ondansetron 4 mg oral tablet (7 sources) Serotonin-3 Receptor Antagonist Start: 09-10-2024 take 1 tablet by mouth every six hours as needed for nausea and vomiting oxyCODONE hydrochloride 5 mg oral tablet (4 [...] release tablet 2.5 mg polyethylene glycol 3350 72704 mg powder for oral solution (4 sources) Osmotic Laxative Start: 06-16-2023 End: 07-20-2023 take 17 g by mouth every twenty-four hours as needed polyethylene glycol, PEG, 3350 (Miralax) 17 g packet Take 17 g by mouth Daily as needed (constipation). 7 packet 2 06/20/2023 07/20/2023 Active warfarin sodium 2 mg oral tablet (20 sources) Vitamin K Antagonist Start: 09-10-2024 Start: 04-07-2024 End: 04-30-2024 Warfarin 3 mg tablet Discont inued 3 mg PO .QMOTHSASU Protocol: Adjustment Start Date: Friday04/07/24INR Value: 2.6INR Date: 04/06/24Recheck Date: 04/14/24 Condition: Friday Dose/Route: 3 mg Instructions: 1 x 3 mg tablet Condition: Friday Dose/Route: 3 mg Instructions: 1 x 3 mg tablet Condition: Friday Dose/Route: 2.5 mg Instructions: 1 x 2.5 mg tablet Condition: Friday Dose/Route: 2.5 mg Instructions: 1 x 2.5 mg tablet Condition: Dose/Route: 3 mg Instructions: 1 x 3 mg tablet Condition: Friday Dose/Route: 2.5 mg Instructions: 1 x 2.5 mg tablet Condition: Friday Dose/Route: 3 mg Instructions: 1 x 3 mg tablet 90 1 April 07, 2024 5:46pm April 30, 2024 3:51pm Please contact the information source for Protocol details. Start: 06-19-2023 warfarin (Coum rodrigo) tablet 5 mg Start: 10-15-2022 End: 09-10-2024 Warfarin 2.5 mg tablet Disco ntinued 2.5 mg PO .QTUWEFR Protocol: Adjustment Start Date: Friday07/19/24INR Value: 2.2INR Date: 07/19/24Recheck Date: 08/18/24 Condition: Friday Dose/Route: 3 mg Instructions: 1 x 3 mg tablet Condition: Friday Dose/Route: 3 mg Instructions: 1 x 3 mg tablet Condition: Friday Dose/Route: 2.5 mg Instructions: 1 x 2.5 mg tablet Condition: Friday Dose/Route: 2.5 mg Instructions: 1 x 2.5 mg tablet Condition: Dose/Route: 3 mg Instructions: 1 x 3 mg tablet Condition: Friday Dose/Route: 2.5 mg Instructions: 1 x 2.5 mg tablet Condition: Friday Dose/Route: 3 mg Instructions: 1 x 3 mg tablet 90 April 30, 2024 3:49pm September 10, [...] 3 mg PO every Friday, , , Fri Protocol: Adjustment Start Date: Friday01/24/20INR Value: 3.1INR Date: 01/24/20 Condition: Friday Dose/Route: 3 mg Instructions: 1 x 3 mg tablet Condition: Friday Dose/Route: 2 mg Instructions: 1 x 2 mg tablet Condition: Friday Dose/Route: 2 mg Instructions: 1 x 2 mg tablet Condition: Friday Dose/Route: 2 mg Instructions: 1 x 2 mg tablet Condition: Dose/Route: 2 mg Instructions: 1 x 2 mg tablet Condition: Friday Dose/Route: 2 mg Instructions: 1 x 2 mg tablet Condition: Friday Dose/Route: 3 mg Instructions: 1 x 3 mg tablet 60 4 January 10, 2020 11:16am January [...] 1:03am Closed 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 lumbar vertebra USP current use of anticoagulant therapy Chronic kidney disease USP (current) use 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 Chronic kidney disease, [...] 2020 5:40pm amLODIPine 10 mg oral tablet (11 sources) Dihydropyridine Calcium Channel Antonio Start: 07-01-2024 [...] 2145 Start: 01-20-2023 take 1 tablet by mouth at bedt maggy betamethasone 3 mg/ml / betamethasone acetate 3 [...] tablet Discontinued 5 mg PO AT BEDTIME 30 0 September 18, 2022 12:00am November 14, 2022 [...] tablet Discontinued 25 mg .ROUTE .COMPLEX 60 5 January 23, 2023 4:51pm May 19, 2023 [...] Onset: 06-04-2024 05-19-2015 Chronic Comment on above: 2011 Chronic kidney disease (5 sources) Chronic [...] (20 sources) Mixed hyperlipidemia; Translations: [Hyperlipidemia] Onset: 01-27-2025 11-27-2018 Chronic E Codes: Fall (17 sources) Fall; Translations: [Unspecified fall, initial encounter] 06-16-2023 Episodic Epilepsy; convulsions (20 sources) Epilepsy; Translations: [Epilepsy, unspecified, not intractable, without status epilepticus] Onset: 09-12-2024 04-30-2023 Chronic Essential hypertension (20 sources) Essential hypertension; Translations: [Essential (primary) hypertension] Onset: 01-27-2025 05-19-2015 Chronic Fracture of upper limb (20 [...] 11-27-2018 11-27-2018 Episodic Other aftercare (2 sources) 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; Translations: [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] Onset: 12-10-2024 Episodic Other and unspecified benign neoplasm (5 sources) Tubular adenoma of colon; Translations: [Tubular adenoma of colon] 12-11-2016 Episodic Other connective tissue disease (5 sources) History of total knee arthroplasty; Translations: [History of knee replacement, total] Onset: 02-09-2016 11-13-2016 Chronic Other connective tissue disease (3 sources) Swelling of left lower limb; Translations: [Other specified soft tissue disorders] 11-22-2024 Episodic Other connective tissue disease (3 sources) Pain of left lower leg; Translations: [...] [Disorientation, unspecified] 09-16-2022 Episodic Residual codes; unclassified (6 sources) Edema of lower extremity; Translations: [Localized edema] 11-22-2024 Episodic Spondylosis; intervertebral disc disorders; other back problems (5 sources) Spinal stenosis; Translations: [Spinal stenosis] 05-19-2015 Episodic Syncope (17 sources) Syncope; Translations: [Syncope and collapse] 06-16-2023 [...] fibrillation, unspecified] Onset: 11-22-2024 Urinary tract infections (7 sources) Urinary tract infectious disease; Translations: [Urinary tract infection, site not specified] Onset: 01-27-2025 09-22-2024 Episodic Past or Other Problems Problem Classification Problem Date Documented Da te Episodic/Chronic Biliary tract disease (5 sources) Biliary calculus; Translations: [Asymptomatic cholelithiasis] Onset: 6 12-18-2015 Episodic Coronary atherosclerosis and other heart disease (20 sources) History of placement of stent for coronary artery disease; Translations: [Presence of coronary angioplasty implant and graft] Onset: 7 11-24-2015 Episodic Other aftercare (1 source) Other halfway (current) drug therapy; Translations: [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] Onset: Episodic Other bone disease and musculoskeletal deformities (5 sources) Osteopenia; Translations: [Osteopenia of multiple sites] Onset: 8 01-05-2018 Episodic Other circulatory disease (5 sources) H/O: atrial fibrillation; Translations: [Status post ablation of atrial fibrillation] Onset: 8 01-05-2018 Episodic Other gastrointestinal disorders (5 sources) Fecal incontinence with fecal urgency; Translations: [Incontinence of feces with fecal urgency] Onset: 7 12-11-2016 Episodic Other nervous system disorders (5 sources) Unspecified speech disturbances; Translations: [Other speech disturbance] Onset: 5 12-28-2022 Episodic Other nervous system disorders (1 source) Slurred speech; Translations: [Slurred speech] Onset: 5 Episodic Residual codes; unclassified (5 sources) History of repair of musculotendinous cuff of shoulder; Translations: [S/P rotator cuff repair] Onset: 9 02-04-2019 Episodic Viral infection (20 sources) COVID-19; Translations: [Severe acute respiratory syndrome coronavirus 2 (SARS-CoV-2) detected] Onset: 1 03-15-2021 Episodic Results Test Name Value Interpretation Reference Range Facility Neurology Visit Reporton Neurology Visit Report [facility] [address], [address] [place] [address] OFFICE VISIT Date of Service: 01/25/25 MR#: [id number] Acct: [id number] Name: EZRA GONZALEZ Rep #: [id number] : [id number] Provider: Dr. Anant baez MD Age/Sex: 89/F Location: [facility] [place]. 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 She has become lost while driving in familiar places. She has had word finding difficulty. She had difficulty performing cooking and no longer does so. She is independent in activities such as dressing and bathing. Her cognitive deficits gradually worsened over time however no further worsening within recent months has been noted. She takes donepezil. She has had some [...] minutes and will diminish significantly if she sits; her low back pain has diminished. She denied having pain in the lower [...] a right humerus fracture for which she had plate fixation. Physical therapy was ordered in 2022. On 09/08/2022, she was noted to have aphasia. Her speech was described as garbled. She was brought to the emergency room. A head MRI had been done 2 days prior due to observation of increased confusion in the days preceding her emergency room presentation. The head MRI revealed mild diffuse age-related cerebral atrophy and mild bilateral periventricular and subcortical white matter chronic small vessel ischemic disease; no acute stroke or other acute pathology [...] has had 3 further episodes of garbled speech/aphasia; episodes lasted about 1 hour each. Lamotrigine was initiated in December 2022 for suspected complex partial seizures. She had a further episode of garbled speech/aphasia in May 2023. Aspirin 81 mg daily was initiated following her episode in November 2022 however she subsequently discontinued aspirin. She had another episode of slurred speech lasting 5 to 10 minutes without change in level of consciousness earlier in August 2024 and was hospitalized for this. A head MRI in August 2024 did not reveal an acute ischemic or hemorrhagic event. 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 Levetiracetam was initiated earlier in August 2024 following her episode of dysarthria however she is no longer taking this. She had another momentary episode of aphasia in November 2024. Her last lamotrigine level was low. A urine culture in August 2024 was positive for Klebsiella pneumoniae sp pneum. She was treated with an antibiotic. Mini-Mental status exam score was 27/30 in [...] 47 (normal), LDL 80 (normal), VLDL 36 (n (more content not included)... Normal [facility] normalized rat io (INR) measurement by fingerstickOrdered By: Cesar Cole on 12-30-2024 INR Coag (BldC) [Relative time] 2.0 [facility] Comment on above: Critical Value > 4.0 Whole blood prothrombin time Ordered By: Cesar Cole on 12-30-2024 PT Coag (Bld) [Time] 22.4 s High 11.7-14.9 [facility] Anion gap in Serum or Plasma Ordered By: Kvng Ochoa on 12-24-2024 Anion gap [Moles/Vol] 14 mmol/L 5-15 [facility] BUN/creatinine ratioOrdered By: Kvng Ochoa on 12-24-2024 Urea nitrogen/Creatinine [Mass ratio] 23.8 mg/mg High 10-20 [facility] Bilirubin Test strip Ql (U)O rdered By: Kvng Ochoa on 12-24-2024 Bilirubin Ql (U) Negative Negative [facility] Carbon dioxide, total [Moles /volume] in Central venous bloodOrdered By: Kvng Ochoa on 12-24-2024 CO2 [Moles/Vol] 21.5 mmol/L 21.0-32.0 [facility] Chloride assayOrdered By: Costa Ochoa on 12-24-2024 Chloride [Moles/Vol] 104 mmol/L 98-108 [facility] Erythrocyte distribution wid th ratioOrdered By: Kvng Ochoa on 12-24-2024 Erythrocyte distribution width (RBC) [Ratio] 12.8 % 11.6-14.6 [facility] Erythrocyte distribution wid th standard deviationOrdered By: Kvng Ochoa on 12-24-2024 Erythrocyte distribution width (RBC) [Ratio] 44.9 fl High 35.1-43.9 [facility] Glomerular filtration rate ( GFR) estimation/1.73 sq m using serum, plasma, or whole bOrdered By: Kvng Ochoa on 12-24-2024 GFR/1.73 sq M.predicted among non-blacks MDRD (S/P/Bld) [Vol rate/Area] 83 mL/min/{1.73_m2} >60 [facility] Comment on above: mL/min/1.73m2 CKD-EP I Creatinine Equation (2020) Hematocrit Auto (Bld) [Volum e fraction]Ordered By: Kvng Ochoa on 12-24-2024 Hematocrit (Bld) [Volume fraction] 40.3 % 37-47 [facility] Hemoglobin measurementOrdere d By: Kvng Ochoa on 12-24-2024 Hemoglobin (Bld) [Mass/Vol] 13.5 g/dL 12.0-15.0 [facility] Ketones Test strip Ql (U)Ord ered By: Kvng Ochoa on 12-24-2024 Ketones Ql (U) Negative Negative [facility] MCV (mean corpuscular volume ) determinationOrdered By: Kvng Ochoa on 12-24-2024 MCV (RBC) [Entitic vol] 96.0 fL 81-99 [facility] Mean corpuscular hemoglobin (MCH) determinationOrdered By: Kvng Ochoa on 12-24-2024 MCH (RBC) [Entitic mass] 32.1 pg High 27.0-32.0 [facility] Mean corpuscular hemoglobin concentration (MCHC) determinationOrdered By: Kvng Ochoa on 12-24-2024 MCHC (RBC) [Mass/Vol] 33.5 g/dL 32-36 [facility] Mean platelet volume determi nationOrdered By: Kvng Ochoa on 12-24-2024 Platelet mean volume (Bld) [Entitic vol] 11.0 fL 6.2-12.0 [facility] Microscopic analysis of urin e for red blood cells (RBC)Ordered By: Kvng Ochoa on 12-24-2024 Microscopic analysis of urine for red blood cells (RBC) 0 SEEN /hpf 0-5 [facility] Mucus LM Ql (Urine sed)Order ed By: Kvng Ochoa on 12-24-2024 Mucus Ql (Urine sed) 0 SEEN /hpf [facility] Nitrite Test strip Ql (U)Ord ered By: Kvng Ochoa on 12-24-2024 Nitrite Ql (U) Positive High Negative [facility] Platelet countOrdered By: Costa Ochoa on 12-24-2024 Platelets (Bld) [#/Vol] 298 10*3/uL 150-450 [facility] Potassium measurement (mass/ volume)Ordered By: Kvng Ochoa on 12-24-2024 Potassium (Unsp spec) [Mass/Vol] 4.8 mmol/L 3.3-5.1 [facility] Comment on above: Hemolysis present, R esults could be affected. Protein Test strip Ql (U)Ord ered By: Kvng Ochoa on 12-24-2024 Protein Ql (U) Negative Negative [facility] RBC Auto (Bld) [#/Vol]Ordere d By: Kvng Ochoa on 12-24-2024 RBC (Bld) [#/Vol] 4.20 10*6/uL 4.2-5.4 [facility] Serum creatinine measurement (mass/volume)Ordered By: vKng Ochoa on 12-24-2024 Creatinine [Mass/Vol] 0.69 mg/dL Low 0.70-1.20 [facility] Serum glucose measurement (m ass/volume)Ordered By: Kvng Ochoa on 12-24-2024 Glucose [Mass/Vol] 127 mg/dL High 70-99 [facility] Serum or plasma calcium viktoria urement (mass/volume)Ordered By: Kvng Ochoa on 12-24-2024 Calcium [Mass/Vol] 9.0 mg/dL 7.6-11.0 [facility] Serum or plasma lamotrigine measurement (mass/volume)Ordered By: Kvng Ochoa on 12-24-2024 lamoTRIgine [Mass/Vol] < 1.0 ug/mL Low 2.0-20.0 [facility] Comment on above: Detection Limit = 1. 0Performed at: - [facility] [id number] Director: Brandon Wells MD, Phone: [phone] Serum or plasma urea nitroge n measurement (mass/volume)Ordered By: Kvng Ochoa on 12-24-2024 Urea nitrogen [Mass/Vol] 17 mg/dL 4-19 [facility] Sodium levelOrdered By: Dru Ochoa on 12-24-2024 Sodium [Moles/Vol] 140 mmol/L 133-145 [facility] Squamous epithelial cells de tection in urine sediment by light microscopyOrdered By: Kvng Ochoa on 12-24-2024 Epithelial cells.squamous LM Ql (Urine sed) 0 SEEN /hpf 5-10 [facility] Urine clarityOrdered By: Alexander Ochoa on 12-24-2024 Clarity (U) Clear Clear [facility] Urine color determinationOrd ered By: Kvng Ochoa on 12-24-2024 Color (U) Yellow Yellow [facility] Urine cultureOrdered By: Alexander Ochoa on 12-24-2024 Bacteria identified Cx Nom (U) Klebsiella pneumoniae sp pneum Abnormal [facility] Urine glucose detectionOrder ed By: Kvng Ochoa on 12-24-2024 Glucose Ql (U) Normal mg/dl Normal [facility] Urine leukocyte esterase det ection by dipstickOrdered By: Kvng Ochoa on 12-24-2024 Leukocyte esterase Test strip Ql (U) 100 /ul High Negative [facility] Urine pHOrdered By: Kvng holley on 12-24-2024 pH (U) 6.5 [pH] 5.0 - 8.0 [facility] Urine sediment bacteria coun t by microscopy (number/high power field)Ordered By: Kvng Ochoa on 12-24-2024 Bacteria LM.HPF (Urine sed) [#/Area] 2 /[HPF] None Seen [facility] Urine specific gravity measu rementOrdered By: Kvng Ochoa on 12-24-2024 Specific gravity (U) [Rel density] 1.010 1.002-1.030 [facility] Urine urobilinogen measureme ntOrdered By: Kvng Ochoa on 12-24-2024 Urobilinogen Ql (U) Normal mg/dl Normal [facility] White blood cell (WBC) count Ordered By: Kvng Ochoa on 12-24-2024 WBC (Bld) [#/Vol] 10.6 10*3/uL 4.4-11.0 [facility] White blood cell countOrdere d By: Kvng Ochoa on 12-24-2024 White blood cell count 0-5 SEEN /hpf 0-5 [facility] normalized rat io (INR) measurement by fingerstickOrdered By: Kvng Ochoa on 11-30-2024 INR Coag (BldC) [Relative time] 2.8 [facility] Comment on above: Critical Value > 4.0 Whole blood prothrombin time Ordered By: Kvng Ochoa on 11-30-2024 PT Coag (Bld) [Time] 29.1 s High 11.7-14.9 [facility] Venous duplex ultrasound rep ortOrdered By: Jamal [place] on 11-23-2024 US Vein [facility] [address] [place] [address] Venous Duplex US, Unilateral 11/22/24920 MR#: [id number] Acct: [id number] Name: EZRA GONZALEZ Rep #:[id number] : 1935 89 From: Jamal [place] MD Attending Dr: NADIA Mcdonald atus: REG CLI Ordering Dr: Yinka Jhonson Date: 11/22/24 Location: [facility] Sex: F C [...] and/or faxed to T/P Trunk is compressible. [facility]. PTV is compressible. LT PerV [...] Referring Physician: Yinka Johnson Performed By: Lucas Watts Lenora 11/23/242215 Date _ Jamal [place] MD CC: Dr. Kvng Ochoa, DO; NADIA Mcdonald ~ Date Dictated: 11/22/24920 Date Transcribed: 11/23/242215 Fish Smoker: Signed [facility] Other Phone: Cardiology Visit Reporton Cardiology Visit Report [facility] [address] [place] [address] OFFICE VISIT Date of Service: 11/22/24 MR#: [id number] Acct: [id number] Name: EZRA GONZALEZ Rep #: [id number] : 1935 Provider: NADIA Mcdonald Age/Sex: 89/F Location[place] [facility] [place] Status: Signed HPI HPI History of Present [...] back into atrial fibrillation. She resides at [facility]. 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 Normal [facility] Venous Duplex US, Unilateral on 11-22-2024 Venous Duplex US, Unilateral [facility] Services [address] [place] [address] Venous Duplex US, Unilateral 11/22/24 0921 MR#: [id number] Acct: [id number] Name: EZRA GONZALEZ Rep #: [id number] : 1935 89 From: Jamal [place] MD [...] and/or faxed to T/P Trunk is compressible. [facility]. PTV is compressible. LT PerV [...] Mcdonald Date Dictated: 11/22/24920 Date Transcribed: 11/23/242215 Fish Smoker: Signed Normal [facility] normalized rat io (INR) measurement by fingerstickOrdered By: Kvng Ochoa on 11-08-2024 INR Coag (BldC) [Relative time] 2.8 [facility] Comment on above: Critical Value > 4.0 Whole blood prothrombin time Ordered By: Kvng Ochoa on 11-08-2024 PT Coag (Bld) [Time] 29.6 s High 11.7-14.9 [facility] normalized rat io (INR) calculationOrdered By: Kvng Ochoa on 10-25-2024 INR Coag (Bld) [Relative time] 3.3 {INR} [facility] normalized rat io (INR) measurement by fingerstickOrdered By: Kvng Ochoa on 10-25-2024 INR Coag (BldC) [Relative time] 4.0 Critically high [facility] Comment on above: Critical Value > 4.0 Prothrombin timeOrdered By: Kvng Ochoa on 10-25-2024 PT Coag (PPP) [Time] 34.2 s High 11.7-14.9 [facility] Whole blood prothrombin time Ordered By: Kvng Ochoa on 10-25-2024 PT Coag (Bld) [Time] 39.6 s High 11.7-14.9 [facility] normalized rat io (INR) measurement by fingerstickOrdered By: Kvng Ochoa on 10-11-2024 INR Coag (BldC) [Relative time] 2.8 [facility] Comment on above: Critical Value > 4.0 Whole blood prothrombin time Ordered By: Kvng Ochoa on 10-11-2024 PT Coag (Bld) [Time] 29.0 s High 11.7-14.9 [facility] normalized rat io (INR) measurement by fingerstickOrdered By: Cesar Cole on 10-04-2024 INR Coag (BldC) [Relative time] 3.4 [facility] Comment on above: Critical Value > 4.0 Whole blood prothrombin time Ordered By: Cesar Cole on 10-04-2024 PT Coag (Bld) [Time] 34.8 s High 11.7-14.9 [facility] normalized rat io (INR) measurement by fingerstickOrdered By: Cesar Cole on 09-24-2024 INR Coag (BldC) [Relative time] 2.0 [facility] Comment on above: Critical Value > 4.0 Whole blood prothrombin time Ordered By: Cesar Cole on 09-24-2024 PT Coag (Bld) [Time] 21.6 s High 11.7-14.9 [facility] Anion gap in Serum or Plasma Ordered By: Kvng Ochoa on 09-22-2024 Anion gap [Moles/Vol] 12 mmol/L 5-15 [facility] BUN/creatinine ratioOrdered By: Kvng Ochoa on 09-22-2024 Urea nitrogen/Creatinine [Mass ratio] 29.4 mg/mg High 10-20 [facility] Calculated very low density lipoprotein (VLDL) cholesterol measurementOrdered By: Kvng Ochoa on 09-22-2024 Calculated very low density lipoprotein (VLDL) cholesterol measurement 24 mg/dL 5- [facility] Carbon dioxide, total [Moles /volume] in Central venous bloodOrdered By: Kvng Ochoa on 09-22-2024 CO2 [Moles/Vol] 23.8 mmol/L 21.0-32.0 [facility] Chloride assayOrdered By: Costa Ochoa on 09-22-2024 Chloride [Moles/Vol] 105 mmol/L 98-108 [facility] Glomerular filtration rate ( GFR) estimation/1.73 sq m using serum, plasma, or whole bOrdered By: Kvng Ochoa on 09-22-2024 GFR/1.73 sq M.predicted among non-blacks MDRD (S/P/Bld) [Vol rate/Area] 52 mL/min/{1.73_m2} Low >60 [facility] Comment on above: mL/min/1.73m2 CKD-EP I Creatinine Equation (2020) LDL calc ser/plasOrdered By: Kvng Ochoa on 09-22-2024 Cholesterol in LDL [Mass/Vol] 109 mg/dL [facility] Comment on above: Nxncgynvwb=510-123 m g/dL & Higher Dyqc=764 mg/dL or greater Potassium measurement (mass/ volume)Ordered By: Kvng Ochoa on 09-22-2024 Potassium (Unsp spec) [Mass/Vol] 4.8 mmol/L 3.3-5.1 [facility] Screening total cholesterol/ high density lipoprotein (HDL) cholesterol ratioOrdered By: Kvng Ochoa on 09-22-2024 Cholesterol.total/Cholest felipe in HDL [Mass ratio] 3.13 {ratio} [facility] Serum creatinine measurement (mass/volume)Ordered By: Kvng Ochoa on 09-22-2024 Creatinine [Mass/Vol] 1.03 mg/dL 0.70-1.20 [facility] Serum glucose measurement (m ass/volume)Ordered By: Kvng Ochoa on 09-22-2024 Glucose [Mass/Vol] 123 mg/dL High 70-99 [facility] Serum or plasma calcium viktoria urement (mass/volume)Ordered By: Kvng Ochoa on 09-22-2024 Calcium [Mass/Vol] 9.0 mg/dL 7.6-11.0 [facility] Serum or plasma cholesterol in HDL measurement (mass/volume)Ordered By: Kvng Ochoa on 09-22-2024 Cholesterol in HDL [Mass/Vol] 62 mg/dL >40 [facility] Comment on above: National Cholesterol Education Program (NCEP) guidelines:<40 mg/dL: Low HDL-cholesterol (major risk factor for CHD)>= 60 mg/dL: High HDL-cholesterol (negative risk factor for CHD)HDL-cholesterol is affected by a number of factors, e.g. smoking, exercise, hormones, sex and age. Serum or plasma cholesterol measurement (mass/volume)Ordered By: Kvng Ochoa on 09-22-2024 Cholesterol [Mass/Vol] 195 mg/dL <201 [facility] Comment on above: Cholesterol level, D esirable <200 mg/dLBorderline high cholesterol 200-239 mg/dLHigh cholesterol >=240 mg/dLRecommendations of the NCEP Adult Treatment Panel for the following risk-cutoff thresholds for the [place] population. Serum or plasma urea nitroge n measurement (mass/volume)Ordered By: Kvng Ochoa on 09-22-2024 Urea nitrogen [Mass/Vol] 30 mg/dL High 4-19 [facility] Sodium levelOrdered By: Dru Ochoa on 09-22-2024 Sodium [Moles/Vol] 140 mmol/L 133-145 [facility] Triglycerides measurementOrd ered By: Kvng Ochoa on 09-22-2024 Triglyceride [Mass/Vol] 118 mg/dL <199 [facility] Comment on above: The drugs N-Acetylcy steine and Metamizole may falsely depress this assay. Normal range: <150 mg/dLBorderline High: 150-199 mg/dLHigh: 200-499 mg/dLVery High: >500 mg/dL International normalized rat io (INR) measurement by fingerstickOrdered By: Cesar Cole on 09-17-2024 INR Coag (BldC) [Relative time] 1.5 [facility] Comment on above: Critical Value > 4.0 Whole blood prothrombin time Ordered By: Cesar Cole on 09-17-2024 PT Coag (Bld) [Time] 17.2 s High 11.7-14.9 [facility] KEPPRA (LEVETIRACETAM)on KEPPRA <2.0 Abnormal 10.0-40.0 [facility] Comment on above: Performed By: #### L 503.5510, L3310.0000, L3300.4400 ####[facility] [address] [place], [place], [id number] Lamotrigine (Lamictal) Level on 09-16-2024 LAMOTRIGINE 1.7 ug/mL Low 2.0-20.0 [facility] Comment on above: Result Comment: Dete ction Limit = 1.0 Performed at: [address], [place] [id number] Hearing Care Practitioner: Brandon Wells MD, Phone: [phone] Performed By: #### L 503.5510, L3310.0000, L3300.4400 ####[facility] [address] [place], [place], [id number] Ammoniaon 09-13-2024 Ammonia (P) [Moles/Vol] 28.9 umol/L Normal 11-51 [facility] Comment on above: Performed By: #### L 503.5510, L3310.0000, [id number] ####[facility] [address] [place], [place], [id number] LevetiracetamOrdered By: Royce Juarez on 09-13-2024 levETIRAcetam [Mass/Vol] ug/mL Low 10.0-40.0 [facility] Neurology Visit Reporton Neurology Visit Report [facility] [address], [address] [place], [place] [address] OFFICE VISIT Date of Service: 09/13/24 MR#: [id number] Acct: [id number] Name: EZRA GONZALEZ Rep #: [id number] : 1935 Provider: Dr. 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 Normal [facility] Serum or plasma lamotrigine measurement (mass/volume)Ordered By: Anant Juarez on 09-13-2024 lamoTRIgine [Mass/Vol] 1.7 ug/mL Low 2.0-20.0 [facility] Comment on above: Detection Limit = 1. 0Performed at: - [facility] [id number] Director: Brandon Wells MD, Phone: [phone] Venous blood ammonia measure mentOrdered By: Anant Juarez on 09-13-2024 Ammonia (P) [Moles/Vol] 28.9 umol/L [facility] Lamotrigine (Lamictal) Level on 09-12-2024 LAMOTRIGINE 1.2 ug/mL Low 2.0-20.0 [facility] Comment on above: Result Comment: Dete ction Limit = 1.0 Performed at: - [facility] [id number] Hearing Care Practitioner: Brandon Wells MD, Phone: [phone] Performed By: #### L 100.0100, L500.2500, L300.3900, L3300.4400 ####[facility] [address] [place], [place], [id number] Urine Cultureon 09-12-2024 URC Klebsiella pneumonia e sp pneum Eaton Count 80,000-100,000 Klebsiella pneumoniae sp pneum: REACTION [...] TMP SMX Islt MELINDA <=20 S Normal [facility] Comment on above: Performed By: #### M 100.2200 ####[facility] [address] [place], [place], [id number] Anion gap in Serum or Plasma Ordered By: Matthew Oro on 09-11-2024 Anion gap [Moles/Vol] 12 mmol/L 08-12 [facility] BUN/creatinine ratioOrdered By: Matthew Oro on 09-11-2024 Urea nitrogen/Creatinine [Mass ratio] 30.4 mg/mg High 01-17 [facility] Basic Metabolic Profile (BMP )on 09-11-2024 BUN/CRE 30.[address] [facility] Comment on above: Order Comment: Comme nts: NPO at [place] prior to lipid panel Performed By: #### L 500.4100, L100.0500, L500.2500 #### [facility] [address] [place], [place], [id number] Calcium [Mass/Vol] 8.8 mg/dL Normal 7.6-11.0 [facility] Comment on above: Order Comment: Comme nts: NPO at [place] prior to lipid panel Performed By: #### L 500.4100, L100.0500, L500.2500 #### [facility] [address] [place], [address] Chloride [Moles/Vol] 105 mmol/L Normal 98-108 [facility] Comment on above: Order Comment: Comme nts: NPO at [place] prior to lipid panel Performed By: #### L 500.4100, L100.0500, L500.2500 #### [facility] [address] [place], [address] CO2 [Moles/Vol] 21.6 mmol/L Normal 21.0-32.0 [facility] Comment on above: Order Comment: Comme nts: NPO at [place] prior to lipid panel Performed By: #### L 500.4100, L100.0500, L500.2500 #### [facility] [address] [place], [address] Creatinine [Mass/Vol] 0.91 mg/dL Normal 0.70-1.20 [facility] Comment on above: Order Comment: Comme nts: NPO at [place] prior to lipid panel Performed By: #### L 500.4100, L100.0500, L500.2500 #### [facility] [address] [place], [address] ECRCL 41.34 ml/min Low 50-250 [facility] Comment on above: Order Comment: Comme nts: NPO at [place] prior to lipid panel Performed By: #### L 500.4100, L100.0500, L500.2500 #### [facility] [address] [place], [address] GAP 12 Normal 5-15 [facility] Comment on above: Order Comment: Comme nts: NPO at [place] prior to lipid panel Performed By: #### L 500.4100, L100.0500, L500.2500 #### [facility] [address] [place], [address] GFR/1.73 sq M.predicted among non-blacks MDRD (S/P/Bld) [Vol rate/Area] 61 mL/min/{1.73_m2} Normal >60 [facility] Comment on above: Order Comment: Comme nts: NPO at [place] prior to lipid panel Result Comment: mL/m in/1.73m2 CKD-EPI Creatinine Equation (2020) Performed By: #### L 500.4100, L100.0500, L500.2500 #### [facility] [address] [place], [address] Glucose [Mass/Vol] 118 mg/dL High 70-99 [facility] Comment on above: Order Comment: Comme nts: NPO at [place] prior to lipid panel Performed By: #### L 500.4100, L100.0500, L500.2500 #### [facility] [address] [place], [address] Potassium [Moles/Vol] 4.4 mmol/L Normal 3.3-5.1 [facility] Comment on above: Order Comment: Comme nts: NPO at [place] prior to lipid panel Performed By: #### L 500.4100, L100.0500, L500.2500 #### [facility] [address] [place], [address] Sodium [Moles/Vol] 139 mmol/L Normal 133-145 [facility] Comment on above: Order Comment: Comme nts: NPO at [place] prior to lipid panel Performed By: #### L 500.4100, L100.0500, L500.2500 #### [facility] [address] [place], [address] Urea nitrogen [Mass/Vol] 28 mg/dL High 4-19 [facility] Comment on above: Order Comment: Comme nts: NPO at [place] prior to lipid panel Performed By: #### L 500.4100, L100.0500, L500.2500 #### [facility] [address] [place], [address] CBC-Complete Blood Cnt No Di ffon 09-11-2024 Erythrocyte distribution width (RBC) [Ratio] 12.8 % Normal 11.6-14.6 [facility] Comment on above: Performed By: #### L 500.4100, L100.0500, L500.2500 #### [facility] [address] [place], [address] Hematocrit (Bld) [Volume fraction] 39.7 % Normal 37-47 [facility] Comment on above: Performed By: #### L 500.4100, L100.0500, L500.2500 #### [facility] [address] [place], [address] Hemoglobin (Bld) [Mass/Vol] 13.1 g/dL Normal 12.0-15.0 [facility] Comment on above: Performed By: #### L 500.4100, L100.0500, L500.2500 #### [facility] [address] [place], [address] MCH (RBC) [Entitic mass] 30.3 pg Normal 27.0-32.0 [facility] Comment on above: Performed By: #### L 500.4100, L100.0500, L500.2500 #### [facility] [address] [place], [address] MCHC (RBC) [Mass/Vol] 33.0 g/dL Normal 32-36 [facility] Comment on above: Performed By: #### L 500.4100, L100.0500, L500.2500 #### [facility] [address] [place], [address] MCV (RBC) [Entitic vol] 91.7 fL Normal 81-99 [facility] Comment on above: Performed By: #### L 500.4100, L100.0500, L500.2500 #### [facility] [address] [place], [address] Platelet mean volume (Bld) [Entitic vol] 10.7 fL Normal 6.2-12.0 [facility] Comment on above: Performed By: #### L 500.4100, L100.0500, L500.2500 #### [facility] [address] [place], [address] Platelets (Bld) [#/Vol] 271 10*3/uL Normal 150-450 [facility] Comment on above: Performed By: #### L 500.4100, L100.0500, L500.2500 #### [facility] [address] [place], [address] RBC (Bld) [#/Vol] 4.33 10*6/uL Normal 4.2-5.4 [facility] Comment on above: Performed By: #### L 500.4100, L100.0500, L500.2500 #### [facility] [address] [place], [address] RDW SD 42.8 fl Normal 35.1-43.9 [facility] Comment on above: Performed By: #### L 500.4100, L100.0500, L500.2500 #### [facility] [address] [place], [address] WBC (Bld) [#/Vol] 12.2 10*3/uL High 4.4-11.0 [facility] Comment on above: Performed By: #### L 500.4100, L100.0500, L500.2500 #### [facility] [address] [place], [address] Calculated very low density lipoprotein (VLDL) cholesterol measurementOrdered By: Matthew Oro on 09-11-2024 Calculated very low density lipoprotein (VLDL) cholesterol measurement 16 mg/dL 5-40 [facility] Carbon dioxide, total [Moles /volume] in Central venous bloodOrdered By: Matthew Oro on 09-11-2024 CO2 [Moles/Vol] 21.6 mmol/L 21.0-32.0 [facility] Chloride assayOrdered By: Urban Oro on 09-11-2024 Chloride [Moles/Vol] 105 mmol/L 98-108 [facility] Discharge Instructionon 08-29 Discharge Instruction [facility] Medical Records Department [address] [place] [address] Instructions for Home/Discharge Instructions 09/11/24 1214 MR#: [id number] Acct: [id number] Name: EZRA GONZALEZ Rep #: [id number] : 1935 89 From: Matthew Oro DO [...] placed): Home, Self Care 09/11/24 [facility]40 [facility]: Glenna Jacobson; Lorelei Pruett; Bala Perez; Janett French MD; Camila Mitchell MD; Eric Crowell MD; Julia Carpenter MD; Dr. Yogesh Hicks MD; Dr. Olivai Trinidad MD; Dr. Lenin Tamez MD; Dr. [...] Thurman DO; Ashu Leonard MD Signed Normal [facility] Electroencephalogramon 09-11 Electroencephalogram [facility] Pulmonary Services/Neurology [address] [place] [address] MR#: [id number] Acct: [id number] Name: EZRA GONZALEZ Rep #: [id number] : 1935 89 From: Castillo Jones MD Referring Dr: Status: ADM MARIELOS Location: [place] [address] Date: 09/10/24 Sex: F C EEG Results Procedure Details EEG Procedure Details: Inpatient routine EEG report performed at [facility] Study start time: 1326 on 09/11/24 [...] DO Date Dictated: 09/11/241501 Date Transcribed: 09/11/241501 Fish Smoker: [place] Signed Normal [facility] Erythrocyte distribution wid th ratioOrdered By: Matthew Oro on 09-11-2024 Erythrocyte distribution width (RBC) [Ratio] 12.8 % 11.6-14.6 [facility] Erythrocyte distribution wid th standard deviationOrdered By: Matthew Oro on 09-11-2024 Erythrocyte distribution width (RBC) [Ratio] 42.8 fl 35.1-43.9 [facility] Glomerular filtration rate ( GFR) estimation/1.73 sq m using serum, plasma, or whole bOrdered By: Matthew Oro on 09-11-2024 GFR/1.73 sq M.predicted among non-blacks MDRD (S/P/Bld) [Vol rate/Area] 61 mL/min/{1.73_m2} >60 [facility] Comment on above: mL/min/1.73m2 CKD-EP I Creatinine Equation (2020) Hematocrit Auto (Bld) [Volum e fraction]Ordered By: Matthew Oro on 09-11-2024 Hematocrit (Bld) [Volume fraction] 39.7 % 37-47 [facility] Hemoglobin measurementOrdere d By: Matthew Oro on 09-11-2024 Hemoglobin (Bld) [Mass/Vol] 13.1 g/dL 12.0-15.0 [facility] LDL calc ser/plasOrdered By: Matthew Oro on 09-11-2024 Cholesterol in LDL [Mass/Vol] 100 mg/dL [facility] Comment on above: Rirrrviuwz=904-247 m g/dL & Higher Wsnt=719 mg/dL or greater Lipid Profileon 09-11-2024 CHOL:HDL 3.03 Normal [facility] Comment on above: Order Comment: Comme nts: NPO at [place] prior to lipid panel Performed By: #### L 500.4100, L100.0500, L500.2500 #### [facility] [address] [place], [place], [id number] (294) Cholesterol [Mass/Vol] 172 mg/dL Normal <=200 [facility] Comment on above: Order Comment: Comme nts: NPO at [place] prior to lipid panel Result Comment: Chol esterol level, Desirable <200 mg/dL Borderline high cholesterol 200-239 mg/dL High cholesterol >=240 mg/dL Recommendations of the NCEP Adult Treatment Panel for the following risk-cutoff thresholds for the [place] population. Performed By: #### L 500.4100, L100.0500, L500.2500 #### [facility] [address] [place], [address] Cholesterol in HDL [Mass/Vol] 57 mg/dL Normal [facility] Comment on above: Order Comment: [...] By: #### L 500.4100, L100.0500, L500.2500 #### [facility] [address] [place], [address] Cholesterol in LDL [Mass/Vol] 100 mg/dL Normal [facility] Comment on above: Order Comment: Comme nts: NPO at [place] prior to lipid panel Result Comment: Bord afigjq=661-272 mg/dL Higher Kyva=120 mg/dL or greater Performed By: #### L 500.4100, L100.0500, L500.2500 #### [facility] [address] [place], [address] Cholesterol in VLDL [Mass/Vol] 16 mg/dL Normal 5-40 [facility] Comment on above: Order Comment: Comme nts: NPO at [place] prior to lipid panel Performed By: #### L 500.4100, L100.0500, L500.2500 #### [facility] [address] [place], [address] Triglyceride [Mass/Vol] 78 mg/dL Normal [facility] Comment on above: Order Comment: Comme nts: NPO at [place] prior to lipid panel Result Comment: The drugs N-Acetylcysteine and Metamizole may falsely depress this assay. Normal range: <150 mg/dL Borderline High: 150-199 mg/dL High: 200-499 mg/dL Very High: >500 mg/dL Performed By: #### L 500.4100, L100.0500, L500.2500 #### [facility] [address] [place], [address] MCV (mean corpuscular volume ) determinationOrdered By: Matthew Oro on 09-11-2024 MCV (RBC) [Entitic vol] 91.7 fL 81-99 [facility] Mean corpuscular hemoglobin (MCH) determinationOrdered By: Matthew Oro on 09-11-2024 MCH (RBC) [Entitic mass] 30.3 pg 27.0-32.0 [facility] Mean corpuscular hemoglobin concentration (MCHC) determinationOrdered By: Matthew Oro on 09-11-2024 MCHC (RBC) [Mass/Vol] 33.0 g/dL 32-36 [facility] Mean platelet volume determi nationOrdered By: Matthew Oro on 09-11-2024 Platelet mean volume (Bld) [Entitic vol] 10.7 fL 6.2-12.0 [facility] Platelet countOrdered By: Urban Oro on 09-11-2024 Platelets (Bld) [#/Vol] 271 10*3/uL 150-450 [facility] Potassium measurement (mass/ volume)Ordered By: Matthew Oro on 09-11-2024 Potassium (Unsp spec) [Mass/Vol] 4.4 mmol/L 3.3-5.1 [facility] RBC Auto (Bld) [#/Vol]Ordere d By: Matthew Oro on 09-11-2024 RBC (Bld) [#/Vol] 4.33 10*6/uL 4.2-5.4 [facility] Screening total cholesterol/ high density lipoprotein (HDL) cholesterol ratioOrdered By: Matthew Oro on 09-11-2024 Cholesterol.total/Cholest felipe in HDL [Mass ratio] 3.03 {ratio} [facility] Serum creatinine measurement (mass/volume)Ordered By: Matthew Oro on 09-11-2024 Creatinine [Mass/Vol] 0.91 mg/dL 0.70-1.20 [facility] Serum glucose measurement (m ass/volume)Ordered By: Matthew Oro on 09-11-2024 Glucose [Mass/Vol] 118 mg/dL High 70-99 [facility] Serum or plasma calcium viktoria urement (mass/volume)Ordered By: Matthew Oro on 09-11-2024 Calcium [Mass/Vol] 8.8 mg/dL 7.6-11.0 [facility] Serum or plasma cholesterol in HDL measurement (mass/volume)Ordered By: Matthew Oro on 09-11-2024 Cholesterol in HDL [Mass/Vol] 57 mg/dL >40 [facility] Comment on above: National Cholesterol Education Program (NCEP) guidelines:<40 mg/dL: Low HDL-cholesterol (major risk factor for CHD)>= 60 mg/dL: High HDL-cholesterol (negative risk factor for CHD)HDL-cholesterol is affected by a number of factors, e.g. smoking, exercise, hormones, sex and age. Serum or plasma cholesterol measurement (mass/volume)Ordered By: Matthew Oro on 09-11-2024 Cholesterol [Mass/Vol] 172 mg/dL <201 [facility] Comment on above: Cholesterol level, D esirable <200 mg/dLBorderline high cholesterol 200-239 mg/dLHigh cholesterol >=240 mg/dLRecommendations of the NCEP Adult Treatment Panel for the following risk-cutoff thresholds for the [place] population. Serum or plasma urea nitroge n measurement (mass/volume)Ordered By: Matthew Oro on 09-11-2024 Urea nitrogen [Mass/Vol] 28 mg/dL High 4-19 [facility] Sodium levelOrdered By: All Oro on 09-11-2024 Sodium [Moles/Vol] 139 mmol/L 133-145 [facility] Triglycerides measurementOrd ered By: Matthew Oro on 09-11-2024 Triglyceride [Mass/Vol] 78 mg/dL <199 [facility] Comment on above: The drugs N-Acetylcy steine and Metamizole may falsely depress this assay. Normal range: <150 mg/dLBorderline High: 150-199 mg/dLHigh: 200-499 mg/dLVery High: >500 mg/dL White blood cell (WBC) count Ordered By: Matthew Oro on 09-11-2024 WBC (Bld) [#/Vol] 12.2 10*3/uL High 4.4-11.0 [facility] Absolute lymphocyte countOrd ered By: Teri Garcia on 09-10-2024 Lymphocytes Auto (Unsp spec) [#/Vol] 1.91 10*3/uL 0.83-4.51 [facility] Absolute neutrophil countOrd ered By: Teri Garcia on 09-10-2024 Neutrophils (Bld) [#/Vol] 8.3 10*3/uL High 2.0-7.7 [facility] Activated partial thrombopla stin time (aPTT) in platelet poor plasma by coagulation aOrdered By: Teri Garcia on 09-10-2024 aPTT Coag (PPP) [Time] 31.8 s 24.1-36.2 [facility] Anion gap in Serum or Plasma Ordered By: Teri Garcia on 09-10-2024 Anion gap [Moles/Vol] 12 mmol/L 5-15 [facility] Automated lymphocyte count a s percentage of total leukocytesOrdered By: Teri Garcia on 09-10-2024 Lymphocytes/100 WBC Auto (Unsp spec) 16.6 % Low 19-41 [facility] BUN/creatinine ratioOrdered By: Teri Garcia on 09-10-2024 Urea nitrogen/Creatinine [Mass ratio] 34.8 mg/mg High 10-20 [facility] Basic Metabolic Profile (BMP )on 09-10-2024 BUN/CRE 34.8 RATIO High -20 [facility] Comment on above: Performed By: #### L 500.2500, L100.0100, L501.4021, L300.3900, L300.4310 ####[facility] [address] [place], [address] Calcium [Mass/Vol] 8.7 mg/dL Normal 7.6-11.0 [facility] Comment on above: Performed By: #### L 500.2500, L100.0100, L501.4021, L300.3900, L300.4310 ####[facility] [address] [place], [address] Chloride [Moles/Vol] 103 mmol/L Normal 98-108 [facility] Comment on above: Performed By: #### L 500.2500, L100.0100, L501.4021, L300.3900, L300.4310 ####[facility] [address] [place], [address] CO2 [Moles/Vol] 21.8 mmol/L Normal 21.0-32.0 [facility] Comment on above: Performed By: #### L 500.2500, L100.0100, L501.4021, L300.3900, L300.4310 ####[facility] [address] [place], [address] Creatinine [Mass/Vol] 1.05 mg/dL Normal 0.70-1.20 [facility] Comment on above: Performed By: #### L 500.2500, L100.0100, L501.4021, L300.3900, L300.4310 ####[facility] [address] [place], [address] ECRCL 33.63 ml/min Low 50-250 [facility] Comment on above: Performed By: #### L 500.2500, L100.0100, L501.4021, L300.3900, L300.4310 ####[facility] [address] [place], [address] GAP 12 Normal 5-15 [facility] Comment on above: Performed By: #### L 500.2500, L100.0100, L501.4021, L300.3900, L300.4310 ####[facility] [address] [place], [address] GFR/1.73 sq M.predicted among non-blacks MDRD (S/P/Bld) [Vol rate/Area] 51 mL/min/{1.73_m2} Low >60 [facility] Comment on above: Result Comment: mL/m in/1.73m2 CKD-EPI Creatinine Equation (2020) Performed By: #### L 500.2500, L100.0100, L501.4021, L300.3900, L300.4310 ####[facility] [address] [place], [address] Glucose [Mass/Vol] 131 mg/dL High 70-99 [facility] Comment on above: Performed By: #### L 500.2500, L100.0100, L501.4021, L300.3900, L300.4310 ####[facility] [address] [place], [address] Potassium [Moles/Vol] 4.4 mmol/L Normal 3.3-5.1 [facility] Comment on above: Result Comment: Hemo lysis present, Results??could be affected. ?? Performed By: #### L 500.2500, L100.0100, L501.4021, L300.3900, L300.4310 ####[facility] [address] [place], [address] Sodium [Moles/Vol] 137 mmol/L Normal 133-145 [facility] Comment on above: Performed By: #### L 500.2500, L100.0100, L501.4021, L300.3900, L300.4310 ####[facility] [address] [place], [address] Urea nitrogen [Mass/Vol] 37 mg/dL High 4-19 [facility] Comment on above: Performed By: #### L 500.2500, L100.0100, L501.4021, L300.3900, L300.4310 ####[facility] [address] [place], [address] Basophil percentageOrdered B y: Teri Garcia on 09-10-2024 Basophils/100 WBC (Bld) 0.4 % 0-1 [facility] Bilirubin Test strip Ql (U)O rdered By: Teri Garcia on 09-10-2024 Bilirubin Ql (U) Negative Negative [facility] Brain without Contraston Brain without Contrast [facility] Imaging Services [address] [place] [address] Brain without Contrast MR#: [id number] Acct: [id number] Name: EZRA GONZALEZ Rep #: [id number] : 1935 F 89 From: Matthias Márquez MD PCP: Dr. Kvng Ochoa, DO Status: ADM MARIELOS Study: Brain without Contrast Date of Exam: 09/10/24 Exam# [id number] Ordering Dr: Matthew Oro DO PROCEDURE: BRAIN [...] Atrophy and mild microvascular changes Reading [facility] CC: Dr. Matthew Oro, DO; Dr. Kvng Ochoa, DO Fish Smoker: Signed Normal [facility] CBC W/Diff, Automatedon 08-29 Absolute Lymph 1.91 X10 3/uL Normal 0.83-4.51 [facility] Comment on above: Performed By: #### L 500.2500, L100.0100, L501.4021, L300.3900, L300.4310 ####[facility] [address] [place], [address] Absolute Neut 8.3 X10 3/uL High 2.0-7.7 [facility] Comment on above: Performed By: #### L 500.2500, L100.0100, L501.4021, L300.3900, L300.4310 ####[facility] [address] [place], [address] Basophils/100 WBC (Bld) 0.4 % Normal 0-1 [facility] Comment on above: Performed By: #### L 500.2500, L100.0100, L501.4021, L300.3900, L300.4310 ####[facility] [address] [place], [address] Eosinophils/100 WBC (Bld) 1.2 % Normal 0-5 [facility] Comment on above: Performed By: #### L 500.2500, L100.0100, L501.4021, L300.3900, L300.4310 ####[facility] [address] [place], [address] Erythrocyte distribution width (RBC) [Ratio] 13.2 % Normal 11.6-14.6 [facility] Comment on above: Performed By: #### L 500.2500, L100.0100, L501.4021, L300.3900, L300.4310 ####[facility] [address] [place], [address] Hematocrit (Bld) [Volume fraction] 41.7 % Normal 37-47 [facility] Comment on above: Performed By: #### L 500.2500, L100.0100, L501.4021, L300.3900, L300.4310 ####[facility] [address] [place], [address] Hemoglobin (Bld) [Mass/Vol] 13.6 g/dL Normal 12.0-15.0 [facility] Comment on above: Performed By: #### L 500.2500, L100.0100, L501.4021, L300.3900, L300.4310 ####[facility] [address] [place], [address] IG% 0.400 Normal 0.0-0.9 [facility] Comment on above: Result Comment: IG% - Immature Granulocytes (promyelocytes, myelocytes and metamyelocytes) > 1% indicates that a LEFT SHIFT is Present. Performed By: #### L 500.2500, L100.0100, L501.4021, L300.3900, L300.4310 ####[facility] [address] [place], [address] Lymphocytes/100 WBC (Bld) 16.6 % Low 19-41 [facility] Comment on above: Performed By: #### L 500.2500, L100.0100, L501.4021, L300.3900, L300.4310 ####[facility] [address] [place], [address] MCH (RBC) [Entitic mass] 30.6 pg Normal 27.0-32.0 [facility] Comment on above: Performed By: #### L 500.2500, L100.0100, L501.4021, L300.3900, L300.4310 ####[facility] [address] [place], [address] MCHC (RBC) [Mass/Vol] 32.6 g/dL Normal 32-36 [facility] Comment on above: Performed By: #### L 500.2500, L100.0100, L501.4021, L300.3900, L300.4310 ####[facility] [address] [place], [address] MCV (RBC) [Entitic vol] 93.9 fL Normal 81-99 [facility] Comment on above: Performed By: #### L 500.2500, L100.0100, L501.4021, L300.3900, L300.4310 ####[facility] [address] [place], [address] Monocytes/100 WBC (Bld) 9.1 % Normal 0-10 [facility] Comment on above: Performed By: #### L 500.2500, L100.0100, L501.4021, L300.3900, L300.4310 ####[facility] [address] [place], [address] Neutrophils/100 WBC (Bld) 72.3 % High 47-70 [facility] Comment on above: Performed By: #### L 500.2500, L100.0100, L501.4021, L300.3900, L300.4310 ####[facility] [address] [place], [address] Nucleated RBC (Bld) [#/Vol] 0 10*3/uL Normal 0-5 [facility] Comment on above: Performed By: #### L 500.2500, L100.0100, L501.4021, L300.3900, L300.4310 ####[facility] [address] [place], [address] Platelet mean volume (Bld) [Entitic vol] 10.4 fL Normal 6.2-12.0 [facility] Comment on above: Performed By: #### L 500.2500, L100.0100, L501.4021, L300.3900, L300.4310 ####[facility] [address] [place], [address] Platelets (Bld) [#/Vol] 269 10*3/uL Normal 150-450 [facility] Comment on above: Performed By: #### L 500.2500, L100.0100, L501.4021, L300.3900, L300.4310 ####[facility] [address] [place], [address] RBC (Bld) [#/Vol] 4.44 10*6/uL Normal 4.2-5.4 [facility] Comment on above: Performed By: #### L 500.2500, L100.0100, L501.4021, L300.3900, L300.4310 ####[facility] [address] [place], [address] RDW SD 45.4 fl High 35.1-43.9 [facility] Comment on above: Performed By: #### L 500.2500, L100.0100, L501.4021, L300.3900, L300.4310 ####[facility] [address] [place], [address] WBC (Bld) [#/Vol] 11.5 10*3/uL High 4.4-11.0 [facility] Comment on above: Performed By: #### L 500.2500, L100.0100, L501.4021, L300.3900, L300.4310 ####[facility] [address] [place], [address] Carbon dioxide, total [Moles /volume] in Central venous bloodOrdered By: Teri Garcia on 09-10-2024 CO2 [Moles/Vol] 21.8 mmol/L 21.0-32.0 [facility] Chloride assayOrdered By: Antonio Garcia on 09-10-2024 Chloride [Moles/Vol] 103 mmol/L 98-108 [facility] Emergency Department Summary on 09-10-2024 Emergency Department Summary [facility] Medical Records Department [address] [place] [address] Emergency Department Summary 09/10/24 MR#: [id number] Acct: [id number] Name: EZRA GONZALEZ Rep #: [id number] : 1935 89 From: Teri Garcia DO [...] son Wilfredo (her eldest son) phone number [phone]. He states that she follows with Dr. Juarez (neurology) and he suspects that this could be epileptic episodes. He also tells me that he talk to her about 615 this morning and she seemed a little off with her mentation as well as her pronunciation. 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 Normal [facility] Eosinophil percentageOrdered By: Teri Garcia on 09-10-2024 Eosinophils/100 WBC (Bld) 1.2 % 0-5 [facility] Erythrocyte distribution wid th ratioOrdered By: Teri Garcia on 09-10-2024 Erythrocyte distribution width (RBC) [Ratio] 13.2 % 11.6-14.6 [facility] Erythrocyte distribution wid th standard deviationOrdered By: Teri Garcia on 09-10-2024 Erythrocyte distribution width (RBC) [Ratio] 45.4 fl High 35.1-43.9 [facility] Glomerular filtration rate ( GFR) estimation/1.73 sq m using serum, plasma, or whole bOrdered By: Teri Garcia on 09-10-2024 GFR/1.73 sq M.predicted among non-blacks MDRD (S/P/Bld) [Vol rate/Area] 51 mL/min/{1.73_m2} Low >60 [facility] Comment on above: mL/min/1.73m2 CKD-EP I Creatinine Equation (2020) H AND P Exam - [facility] 09-10-2024 H&P Exam - Hospitalist [facility] Medical Records Department [address] [place] [address] H P Exam - Hospitalist 09/10/24 1603 MR#: [id number] Acct: [id number] Name: EZRA GONZALEZ Rep #: [id number] : 1935 89 From: Matthew Oro DO PCP: Dr. Kvng Ochoa, Status:ADM MARIELOS Location: [place] [address] HPI - General General Date of Admission: 09/10/24 Date of Service: 09/10/24 Chief Complaint: Dysarthria HPI Narrative EZRA GONZALEZ, is a 89 F who presented to [facility] ED on 09/10/2024 with dysarthria. Patient lives at assisted living at [place]. Has history of seizures and is on [...] any other acute concerns at this time. 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 Normal [facility] Hematocrit Auto (Bld) [Volum e fraction]Ordered By: Teri Garcia on 09-10-2024 Hematocrit (Bld) [Volume fraction] 41.7 % 37-47 [facility] Hemoglobin measurementOrdere d By: Teri Garcia on 09-10-2024 Hemoglobin (Bld) [Mass/Vol] 13.6 g/dL 12.0-15.0 [facility] Immature granulocytes/100 WB C Auto (Bld)Ordered By: Teri Garcia on 09-10-2024 Immature granulocytes/100 WBC (Bld) 0.400 % 0.0-0.9 [facility] Comment on above: IG% - Immature Granu locytes (promyelocytes, myelocytes and metamyelocytes) > 1% indicates that a LEFT SHIFT is Present. International normalized rat io (INR) calculationOrdered By: Teri Garcia on 09-10-2024 INR Coag (Bld) [Relative time] 2.4 {INR} [facility] Ketones Test strip Ql (U)Ord ered By: Teri Garcia on 09-10-2024 Ketones Ql (U) Negative Negative [facility] L499.0042on 09-10-2024 Trop T High Sen 17 ng/L High <=14 [facility] Comment on above: Performed By: #### L 499.0042 #### [facility] [address] [place], [address] L499.0043on 09-10-2024 Trop T High Sen 15 ng/L High <=14 [facility] Comment on above: Performed By: #### L 499.0043 #### [facility] [address] [place], [address] L501.4021on 09-10-2024 Trop T High Sen 18 ng/L High <=14 [facility] Comment on above: Performed By: #### L 500.2500, L100.0100, L501.4021, L300.3900, L300.4310 ####[facility] [address] [place], [address] MCV (mean corpuscular volume ) determinationOrdered By: Teri Garcia on 09-10-2024 MCV (RBC) [Entitic vol] 93.9 fL 81-99 [facility] Magnetic resonance imaging r eportOrdered By: Matthias Márquez on 09-10-2024 Study report [facility] Imaging Services [address] [place], [place] [address] Brain without Contrast MR#: [id number] Acct: [id number] Name: EZRA GONZALEZ Rep #: [id number] : 1935 F 89 From: Bill Márquez MD PCP: Dr. Kvng Ochoa, DO Status: ADM MARIELOS Study:Brain without Contrast Date of Exam: 09/10/24 Exam# [id number] Ordering Dr: Matthew Patel DO PROCEDURE: BRAIN [...] microvascular changes Reading Location: [facility] CC: Dr. Matthew Oor DO; Dr. Kvng Ochoa DO ~ Fish Smoker: Signed [facility] Mean corpuscular hemoglobin (MCH) determinationOrdered By: Teri Garcia on 09-10-2024 MCH (RBC) [Entitic mass] 30.6 pg 27.0-32.0 [facility] Mean corpuscular hemoglobin concentration (MCHC) determinationOrdered By: Teri Garcia on 09-10-2024 MCHC (RBC) [Mass/Vol] 32.6 g/dL 32-36 [facility] Mean platelet volume determi nationOrdered By: Teri Garcia on 09-10-2024 Platelet mean volume (Bld) [Entitic vol] 10.4 fL 6.2-12.0 [facility] Microscopic analysis of urin e for red blood cells (RBC)Ordered By: Teri Garcia on 09-10-2024 Microscopic analysis of urine for red blood cells (RBC) 0 SEEN /hpf 0-5 [facility] Monocyte percentageOrdered B y: Teri Garcia on 09-10-2024 Monocytes/100 WBC (Bld) 9.1 % 0-10 [facility] Mucus LM Ql (Urine sed)Order ed By: Teri Garcia on 09-10-2024 Mucus Ql (Urine sed) 0 SEEN /hpf [facility] Neutrophil percentageOrdered By: Teri Garcia on 09-10-2024 Neutrophils/100 WBC (Bld) 72.3 % High 47-70 [facility] Nitrite Test strip Ql (U)Ord ered By: Teri Garcia on 09-10-2024 Nitrite Ql (U) Negative Negative [facility] Nucleated red blood cell per centageOrdered By: Teri Garcia on 09-10-2024 Nucleated RBC/100 WBC (Bld) [Ratio] 0 % 0-5 [facility] Partial Thromboplast Timeon 09-10-2024 aPTT Coag (Bld) [Time] 31.8 s Normal 24.1-36.2 [facility] Comment on above: Performed By: #### L 500.2500, L100.0100, L501.4021, L300.3900, L300.4310 ####[facility] [address] [place], [address] Platelet countOrdered By: Antonio Garcia on 09-10-2024 Platelets (Bld) [#/Vol] 269 10*3/uL 150-450 [facility] Potassium measurement (mass/ volume)Ordered By: Teri Garcia on 09-10-2024 Potassium (Unsp spec) [Mass/Vol] 4.4 mmol/L 3.3-5.1 [facility] Comment on above: Hemolysis present, R esults could be affected. Protein Test strip Ql (U)Ord ered By: Teri Garcia on 09-10-2024 Protein Ql (U) 30 mg/dl High Negative [facility] Prothrombin Time w/INRon INR Coag (PPP) [Relative time] 2.4 {INR} Normal [facility] Comment on above: Performed By: #### L 500.2500, L100.0100, L501.4021, L300.3900, L300.4310 ####[facility] [address] [place], [place], [address] PT Coag (PPP) [Time] 26.4 s High 11.7-14.9 [facility] Comment on above: Performed By: #### L 500.2500, L100.0100, L501.4021, L300.3900, L300.4310 ####[facility] [address] [place], [address] Prothrombin timeOrdered By: Teri Garcia on 09-10-2024 PT Coag (PPP) [Time] 26.4 s High 11.7-14.9 [facility] RBC Auto (Bld) [#/Vol]Ordere d By: Teri Garcia on 09-10-2024 RBC (Bld) [#/Vol] 4.44 10*6/uL 4.2-5.4 [facility] STROKE Brain/Head without Co nton 09-10-2024 STROKE Brain/Head without Cont [facility] Imaging Services [address] [place] [address] STROKE Brain/Head without Cont MR#: [id number] Acct: [id number] Name: EZRA GONZALEZ Rep #: [id number] : 1935 F 89 From: Mio nayak MD PCP: Dr. Kvng Ochoa, Status: REG ER Study: STROKE Brain/Head without Cont Date of Exam: 0 09/10/24 Exam# [id number] Ordering Dr: Teri Garcia DO PROCEDURE: STROKE [...] 2:05 pm with readback verification. Reading Location: [facility] CC: Dr. Teri Garcia, ; Dr. Kvng Ochoa DO Fish Smoker: Signed Normal [facility] STROKE CTA Head AND Neck W/C onon 09-10-2024 STROKE CTA Head AND Neck W/Con [facility] Imaging Services [address] [place], [place] [address] STROKE CTA Head AND Neck W/Con MR#: [id number] Acct: [id number] Name: EZRA GONZALEZ Rep #: [id number] : 1935 F 89 From: Mio nayak MD PCP: Dr. Kvng Ochoa DO Status: REG ER Study: STROKE CTA Head AND Neck W/Con Date of Exam: 0 09/10/24 Exam# [id number] Ordering Dr: Teri Garcia DO PROCEDURE: STROKE [...] RIGHT Vertebral: Unremarkable. LEFT Vertebral: Unremarkable. Anatomy: [place] anatomy is normal. Aneurysm or [...] 3:01 pm with readback verification. Reading Location: [id number] CC: Dr. Teri Garcia DO; Dr. Kvng Ohcoa DO Fish Smoker: Signed Normal [facility] Serum creatinine measurement (mass/volume)Ordered By: Teri Garcia on 09-10-2024 Creatinine [Mass/Vol] 1.05 mg/dL 0.70-1.20 [facility] Serum glucose measurement (m ass/volume)Ordered By: Teri Garcia on 09-10-2024 Glucose [Mass/Vol] 131 mg/dL High 70-99 [facility] Serum or plasma calcium viktoria urement (mass/volume)Ordered By: Teri Garcia on 09-10-2024 Calcium [Mass/Vol] 8.7 mg/dL 7.6-11.0 [facility] Serum or plasma urea nitroge n measurement (mass/volume)Ordered By: Teri Garcia on 09-10-2024 Urea nitrogen [Mass/Vol] 37 mg/dL High 4-19 [facility] Sodium levelOrdered By: Ollie Garcia on 09-10-2024 Sodium [Moles/Vol] 137 mmol/L 133-145 [facility] Squamous epithelial cells de tection in urine sediment by light microscopyOrdered By: Teri Garcia on 09-10-2024 Epithelial cells.squamous LM Ql (Urine sed) 0-5 SEEN /hpf 5-10 [facility] Troponin T.cardiac [Mass/vol ume] in Serum or Plasma by High sensitivity methodOrdered By: Teri Garcia on 09-10-2024 Troponin T.cardiac High sensitivity method [Mass/Vol] 15 ng/L High <14 [facility] Troponin T.cardiac High sensitivity method [Mass/Vol] 17 ng/L High <14 [facility] Troponin T.cardiac High sensitivity method [Mass/Vol] 18 ng/L High <14 [facility] Urinalysis, Completeon 09-10 BACTERIA RARE Normal None Seen [facility] Comment on above: Order Comment: RANDY CTOR TO SPECIFY Performed By: #### L 400.0001 ####[facility] [address] [place], [address] EPI,SQUAMOUS 0-5 SEEN Normal 5-10 [facility] Comment on above: Order Comment: RANDY CTOR TO SPECIFY Performed By: #### L 400.0001 ####[facility] [address] [place], [place], [id number] WBC 10-25 SEEN Normal 0-5 [facility] Comment on above: Order Comment: RANDY CTOR TO SPECIFY Performed By: #### L 400.0001 ####[facility] [address] [place], [address] Mucus Ql (Urine sed) 0 SEEN Normal [facility] Comment on above: Order Comment: RANDY CTOR TO SPECIFY Performed By: #### L 400.0001 ####[facility] [address] [place], [place], [id number] RBC 0 SEEN Normal 0-5 [facility] Comment on above: Order Comment: RANDY CTOR TO SPECIFY Performed By: #### L 400.0001 ####[facility] [address] [place], [address] Urine clarityOrdered By: Lashaun Garcia on 09-10-2024 Clarity (U) Clear Clear [facility] Urine color determinationOrd ered By: Teri Garcia on 09-10-2024 Color (U) Straw Yellow [facility] Urine cultureOrdered By: Lashaun Garcia on 09-10-2024 Bacteria identified Cx Nom (U) Klebsiella pneumoniae sp pneum Abnormal [facility] Urine glucose detectionOrder ed By: Teri Garcia on 09-10-2024 Glucose Ql (U) Normal mg/dl Normal [facility] Urine leukocyte esterase det ection by dipstickOrdered By: Teri Garcia on 09-10-2024 Leukocyte esterase Test strip Ql (U) 500 /ul High Negative [facility] Urine pHOrdered By: Teri romero on 09-10-2024 pH (U) 5.0 [pH] 5.0 - 8.0 [facility] Urine sediment bacteria coun t by microscopy (number/high power field)Ordered By: Teri Garcia on 09-10-2024 Bacteria LM.HPF (Urine sed) [#/Area] RARE /hpf None Seen [facility] Urine specific gravity measu rementOrdered By: Teri Garcia on 09-10-2024 Specific gravity (U) [Rel density] 1.010 1.002-1.030 [facility] Urine urobilinogen measureme ntOrdered By: Teri Garcia on 09-10-2024 Urobilinogen Ql (U) Normal mg/dl Normal [facility] White blood cell (WBC) count Ordered By: Teri Garcia on 09-10-2024 WBC (Bld) [#/Vol] 11.5 10*3/uL High 4.4-11.0 [facility] White blood cell countOrdere d By: Teri Garcia on 09-10-2024 White blood cell count 10-25 SEEN /hpf 0-5 [facility] Absolute lymphocyte countOrd ered By: Anoop Blackmon on 09-08-2024 Lymphocytes Auto (Unsp spec) [#/Vol] 2.21 10*3/uL 0.83-4.51 [facility] Absolute neutrophil countOrd ered By: Anooppierce Blackmon on 09-08-2024 Neutrophils (Bld) [#/Vol] 10.3 10*3/uL High 2.0-7.7 [facility] Anion gap in Serum or Plasma Ordered By: Anooppierce Blackmon on 09-08-2024 Anion gap [Moles/Vol] 11 mmol/L 5-15 [facility] Automated lymphocyte count a s percentage of total leukocytesOrdered By: Anoop Blackmon on 09-08-2024 Lymphocytes/100 WBC Auto (Unsp spec) 16.2 % Low 19-41 [facility] BUN/creatinine ratioOrdered By: Anooppierce Blackmon on 09-08-2024 Urea nitrogen/Creatinine [Mass ratio] 35.2 mg/mg High 10-20 [facility] Basic Metabolic Profile (BMP )on 09-08-2024 BUN/CRE 35.2 RATIO High - [facility] Comment on above: Performed By: #### L 100.0100, L500.2500, L300.3900, L3300.4400 ####[facility] [address] [place], [address] Calcium [Mass/Vol] 8.9 mg/dL Normal 7.6-11.0 [facility] Comment on above: Performed By: #### L 100.0100, L500.2500, L300.3900, L3300.4400 ####[facility] [address] [place], [address] Chloride [Moles/Vol] 105 mmol/L Normal 98-108 [facility] Comment on above: Performed By: #### L 100.0100, L500.2500, L300.3900, L3300.4400 ####[facility] [address] [place], [address] CO2 [Moles/Vol] 22.4 mmol/L Normal 21.0-32.0 [facility] Comment on above: Performed By: #### L 100.0100, L500.2500, L300.3900, L3300.4400 ####[facility] [address] [place], [address] Creatinine [Mass/Vol] 1.00 mg/dL Normal 0.70-1.20 [facility] Comment on above: Performed By: #### L 100.0100, L500.2500, L300.3900, L3300.4400 ####[facility] [address] [place], [address] ECRCL 39.57 ml/min Low 50-250 [facility] Comment on above: Performed By: #### L 100.0100, L500.2500, L300.3900, L3300.4400 ####[facility] [address] [place], [address] GAP 11 Normal 5-15 [facility] Comment on above: Performed By: #### L 100.0100, L500.2500, L300.3900, L3300.4400 ####[facility] [address] [place], [address] GFR/1.73 sq M.predicted among non-blacks MDRD (S/P/Bld) [Vol rate/Area] 54 mL/min/{1.73_m2} Low >60 [facility] Comment on above: Result Comment: mL/m in/1.73m2 CKD-EPI Creatinine Equation (2020) Performed By: #### L 100.0100, L500.2500, L300.3900, L3300.4400 ####[facility] [address] [place], [address] Glucose [Mass/Vol] 149 mg/dL High 70-99 [facility] Comment on above: Performed By: #### L 100.0100, L500.2500, L300.3900, L3300.4400 ####[facility] [address] [place], [address] Potassium [Moles/Vol] 4.7 mmol/L Normal 3.3-5.1 [facility] Comment on above: Performed By: #### L 100.0100, L500.2500, L300.3900, L3300.4400 ####[facility] [address] [place], [address] Sodium [Moles/Vol] 138 mmol/L Normal 133-145 [facility] Comment on above: Performed By: #### L 100.0100, L500.2500, L300.3900, L3300.4400 ####[facility] [address] [place], [address] Urea nitrogen [Mass/Vol] 35 mg/dL High 4-19 [facility] Comment on above: Performed By: #### L 100.0100, L500.2500, L300.3900, L3300.4400 ####[facility] [address] [place], [address] Basophil percentageOrdered B y: Anoop Blackmon on 09-08-2024 Basophils/100 WBC (Bld) 0.2 % 0-1 [facility] CBC W/Diff, Automatedon 08-29 Absolute Lymph 2.21 X10 3/uL Normal 0.83-4.51 [facility] Comment on above: Performed By: #### L 100.0100, L500.2500, L300.3900, L3300.4400 #### [facility] [address] [place], [address] Absolute Neut 10.3 X10 3/uL High 2.0-7.7 [facility] Comment on above: Performed By: #### L 100.0100, L500.2500, L300.3900, L3300.4400 #### [facility] [address] [place], [address] Basophils/100 WBC (Bld) 0.2 % Normal 0-1 [facility] Comment on above: Performed By: #### L 100.0100, L500.2500, L300.3900, L3300.4400 #### [facility] [address] [place], [address] Eosinophils/100 WBC (Bld) 0.7 % Normal 0-5 [facility] Comment on above: Performed By: #### L 100.0100, L500.2500, L300.3900, L3300.4400 #### [facility] [address] [place], [address] Erythrocyte distribution width (RBC) [Ratio] 13.2 % Normal 11.6-14.6 [facility] Comment on above: Performed By: #### L 100.0100, L500.2500, L300.3900, L3300.4400 #### [facility] [address] [place], [address] Hematocrit (Bld) [Volume fraction] 41.4 % Normal 37-47 [facility] Comment on above: Performed By: #### L 100.0100, L500.2500, L300.3900, L3300.4400 #### [facility] [address] [place], [address] Hemoglobin (Bld) [Mass/Vol] 13.8 g/dL Normal 12.0-15.0 [facility] Comment on above: Performed By: #### L 100.0100, L500.2500, L300.3900, L3300.4400 #### [facility] [address] [place], [address] IG% 0.400 Normal 0.0-0.9 [facility] Comment on above: Result Comment: IG% - Immature Granulocytes (promyelocytes, myelocytes and metamyelocytes) > 1% indicates that a LEFT SHIFT is Present. Performed By: #### L 100.0100, L500.2500, L300.3900, L3300.4400 #### [facility] [address] [place], [address] Lymphocytes/100 WBC (Bld) 16.2 % Low 19-41 [facility] Comment on above: Performed By: #### L 100.0100, L500.2500, L300.3900, L3300.4400 #### [facility] [address] [place], [address] MCH (RBC) [Entitic mass] 31.4 pg Normal 27.0-32.0 [facility] Comment on above: Performed By: #### L 100.0100, L500.2500, L300.3900, L3300.4400 #### [facility] [address] [place], [address] MCHC (RBC) [Mass/Vol] 33.3 g/dL Normal 32-36 [facility] Comment on above: Performed By: #### L 100.0100, L500.2500, L300.3900, L3300.4400 #### [facility] [address] [place], [address] MCV (RBC) [Entitic vol] 94.1 fL Normal 81-99 [facility] Comment on above: Performed By: #### L 100.0100, L500.2500, L300.3900, L3300.4400 #### [facility] [address] [place], [address] Monocytes/100 WBC (Bld) 6.6 % Normal 0-10 [facility] Comment on above: Performed By: #### L 100.0100, L500.2500, L300.3900, L3300.4400 #### [facility] [address] [place], [address] Neutrophils/100 WBC (Bld) 75.9 % High 47-70 [facility] Comment on above: Performed By: #### L 100.0100, L500.2500, L300.3900, L3300.4400 #### [facility] [address] [place], [address] Nucleated RBC (Bld) [#/Vol] 0 10*3/uL Normal 0-5 [facility] Comment on above: Performed By: #### L 100.0100, L500.2500, L300.3900, L3300.4400 #### [facility] [address] [place], [address] Platelet mean volume (Bld) [Entitic vol] 10.8 fL Normal 6.2-12.0 [facility] Comment on above: Performed By: #### L 100.0100, L500.2500, L300.3900, L3300.4400 #### [facility] [address] [place], [address] Platelets (Bld) [#/Vol] 326 10*3/uL Normal 150-450 [facility] Comment on above: Performed By: #### L 100.0100, L500.2500, L300.3900, L3300.4400 #### [facility] [address] [place], [address] RBC (Bld) [#/Vol] 4.40 10*6/uL Normal 4.2-5.4 [facility] Comment on above: Performed By: #### L 100.0100, L500.2500, L300.3900, L3300.4400 #### [facility] [address] [place], [address] RDW SD 45.2 fl High 35.1-43.9 [facility] Comment on above: Performed By: #### L 100.0100, L500.2500, L300.3900, L3300.4400 #### [facility] [address] [place], [address] WBC (Bld) [#/Vol] 13.6 10*3/uL High 4.4-11.0 [facility] Comment on above: Performed By: #### L 100.0100, L500.2500, L300.3900, L3300.4400 #### [facility] [address] [place], [address] Carbon dioxide, total [Moles /volume] in Central venous bloodOrdered By: Anoop Blackmon on 09-08-2024 CO2 [Moles/Vol] 22.4 mmol/L 21.0-32.0 [facility] Chloride assayOrdered By: Monserrat Blackmon on 09-08-2024 Chloride [Moles/Vol] 105 mmol/L 98-108 [facility] Emergency Department Summary on 09-08-2024 Emergency Department Summary [facility] Medical Records Department [address] [place] [address] Emergency Department Summary 09/08/24 MR#: [id number] Acct: [id number] Name: EZRA GONZALEZ Rep #: [id number] : 1935 89 From: Anoop Blackmon MD [...] Spinal stenosis Osteoarthritis Atherosclerotic heart disease of [place] coronary artery without angina pectoris Type 2 [...] procedure for (more content not included)... Normal [facility] Eosinophil percentageOrdered By: Anoop Blackmon on 09-08-2024 Eosinophils/100 WBC (Bld) 0.7 % 0-5 [facility] Erythrocyte distribution wid th ratioOrdered By: Anoop Blackmon on 09-08-2024 Erythrocyte distribution width (RBC) [Ratio] 13.2 % 11.6-14.6 [facility] Erythrocyte distribution wid th standard deviationOrdered By: Anoop Blackmon on 09-08-2024 Erythrocyte distribution width (RBC) [Ratio] 45.2 fl High 35.1-43.9 [facility] Glomerular filtration rate ( GFR) estimation/1.73 sq m using serum, plasma, or whole bOrdered By: Anoop Blackmon on 09-08-2024 GFR/1.73 sq M.predicted among non-blacks MDRD (S/P/Bld) [Vol rate/Area] 54 mL/min/{1.73_m2} Low >60 [facility] Comment on above: mL/min/1.73m2 CKD-EP I Creatinine Equation (2020) Hematocrit Auto (Bld) [Volum e fraction]Ordered By: Anooppierce Blackmon on 09-08-2024 Hematocrit (Bld) [Volume fraction] 41.4 % 37-47 [facility] Hemoglobin measurementOrdere d By: Anooppierce Blackmon on 09-08-2024 Hemoglobin (Bld) [Mass/Vol] 13.8 g/dL 12.0-15.0 [facility] Immature granulocytes/100 WB C Auto (Bld)Ordered By: Anooppierce Blackmon on 09-08-2024 Immature granulocytes/100 WBC (Bld) 0.400 % 0.0-0.9 [facility] Comment on above: IG% - Immature Granu locytes (promyelocytes, myelocytes and metamyelocytes) > 1% indicates that a LEFT SHIFT is Present. International normalized rat io (INR) calculationOrdered By: Anooppierce Blackmon on 09-08-2024 INR Coag (Bld) [Relative time] 2.9 {INR} [facility] MCV (mean corpuscular volume ) determinationOrdered By: Anoop Blackmon on 09-08-2024 MCV (RBC) [Entitic vol] 94.1 fL 81-99 [facility] Mean corpuscular hemoglobin (MCH) determinationOrdered By: Anooppierce Blackmon on 09-08-2024 MCH (RBC) [Entitic mass] 31.4 pg 27.0-32.0 [facility] Mean corpuscular hemoglobin concentration (MCHC) determinationOrdered By: Anooppierce Blackmon on 09-08-2024 MCHC (RBC) [Mass/Vol] 33.3 g/dL 32-36 [facility] Mean platelet volume determi nationOrdered By: Anooppierce Blackmon on 09-08-2024 Platelet mean volume (Bld) [Entitic vol] 10.8 fL 6.2-12.0 [facility] Monocyte percentageOrdered B y: Anoop Blackmon on 09-08-2024 Monocytes/100 WBC (Bld) 6.6 % 0-10 [facility] Neutrophil percentageOrdered By: Anoop Blackmon on 09-08-2024 Neutrophils/100 WBC (Bld) 75.9 % High 47-70 [facility] Nucleated red blood cell per centageOrdered By: Anoop Blackmon on 09-08-2024 Nucleated RBC/100 WBC (Bld) [Ratio] 0 % 0-5 [facility] Platelet countOrdered By: Monserrat Blackmon on 09-08-2024 Platelets (Bld) [#/Vol] 326 10*3/uL 150-450 [facility] Potassium measurement (mass/ volume)Ordered By: Anoop Blackmon on 09-08-2024 Potassium (Unsp spec) [Mass/Vol] 4.7 mmol/L 3.3-5.1 [facility] Prothrombin Time w/INRon INR Coag (PPP) [Relative time] 2.9 {INR} Normal [facility] Comment on above: Performed By: #### L 100.0100, L500.2500, L300.3900, L3300.4400 ####[facility] [address] [place], [place], [phone] PT Coag (PPP) [Time] 30.7 s High 11.7-14.9 [facility] Comment on above: Performed By: #### L 100.0100, L500.2500, L300.3900, L3300.4400 ####[facility] [address] [place], [address] Prothrombin timeOrdered By: Anoop Blackmon on 09-08-2024 PT Coag (PPP) [Time] 30.7 s High 11.7-14.9 [facility] RBC Auto (Bld) [#/Vol]Ordere d By: Anoop Blackmon on 09-08-2024 RBC (Bld) [#/Vol] 4.40 10*6/uL 4.2-5.4 [facility] Serum creatinine measurement (mass/volume)Ordered By: Anoop Blackmon on 09-08-2024 Creatinine [Mass/Vol] 1.00 mg/dL 0.70-1.20 [facility] Serum glucose measurement (m ass/volume)Ordered By: Anoop Blackmon on 09-08-2024 Glucose [Mass/Vol] 149 mg/dL High 70-99 [facility] Serum or plasma calcium viktoria urement (mass/volume)Ordered By: Anoop Blackmon on 09-08-2024 Calcium [Mass/Vol] 8.9 mg/dL 7.6-11.0 [facility] Serum or plasma lamotrigine measurement (mass/volume)Ordered By: Anooppierce Blackmon on 09-08-2024 lamoTRIgine [Mass/Vol] 1.2 ug/mL Low 2.0-20.0 [facility] Comment on above: Detection Limit = 1. 0Performed at: [facility] [id number] Director: Brandon Wells MD, Phone: [phone] Serum or plasma urea nitroge n measurement (mass/volume)Ordered By: Anoop Blackmon on 09-08-2024 Urea nitrogen [Mass/Vol] 35 mg/dL High 4-19 [facility] Sodium levelOrdered By: Anooppierce Blackmon on 09-08-2024 Sodium [Moles/Vol] 138 mmol/L 133-145 [facility] White blood cell (WBC) count Ordered By: Anoop Blackmon on 09-08-2024 WBC (Bld) [#/Vol] 13.6 10*3/uL High 4.4-11.0 [facility] International normalized rat io (INR) calculationOrdered By: [place] Douglas on 08-18-2024 INR Coag (Bld) [Relative time] 2.6 {INR} [facility] Prothrombin timeOrdered By: [place] Douglas on 08-18-2024 PT Coag (PPP) [Time] 28.1 s High 11.7-14.9 [facility] International normalized rat io (INR) calculationOrdered By: Cesar Douglas on 07-19-2024 INR Coag (Bld) [Relative time] 2.2 {INR} [facility] Prothrombin timeOrdered By: Cesarsharda Cole on 07-19-2024 PT Coag (PPP) [Time] 25.3 s High 11.7-14.9 [facility] Cardiology Visit Reporton Cardiology Visit Report [facility] [address] [place] [address] OFFICE VISIT Date of Service: 07/01/24 MR#: [id number] Acct: [id number] Name: EZRA GONZALEZ Rep #: [id number] : 1935 Provider: Dr. Cesar Cole MD [...] atrial fibrillation. She is a reside at [facility]. 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 Normal [facility] International normalized rat io (INR) calculationOrdered By: Kvng Ochoa on 06-16-2024 INR Coag (Bld) [Relative time] 2.4 {INR} [facility] Prothrombin timeOrdered By: Kvng Ochoa on 06-16-2024 PT Coag (PPP) [Time] 26.6 s High 11.7-14.9 [facility] Absolute lymphocyte countOrd ered By: Kvng Ochoa on 06-09-2024 Lymphocytes Auto (Unsp spec) [#/Vol] 2.06 10*3/uL 0.83-4.51 [facility] Absolute neutrophil countOrd ered By: Kvng Ochoa on 06-09-2024 Neutrophils (Bld) [#/Vol] 5.6 10*3/uL 2.0-7.7 [facility] Anion gap in Serum or Plasma Ordered By: Kvng Ochoa on 06-09-2024 Anion gap [Moles/Vol] 13 mmol/L 5-15 [facility] Automated lymphocyte count a s percentage of total leukocytesOrdered By: Kvng Ochoa on 06-09-2024 Lymphocytes/100 WBC Auto (Unsp spec) 23.0 % 19-41 [facility] BUN/creatinine ratioOrdered By: Kvng Ochoa on 06-09-2024 Urea nitrogen/Creatinine [Mass ratio] 21.5 mg/mg High 10-20 [facility] Basophil percentageOrdered B y: Kvng Ochoa on 06-09-2024 Basophils/100 WBC (Bld) 0.6 % 0-1 [facility] Carbon dioxide, total [Moles /volume] in Central venous bloodOrdered By: Kvng Ochoa on 06-09-2024 CO2 [Moles/Vol] 22.4 mmol/L 21.0-32.0 [facility] Chloride assayOrdered By: Costa Ochoa on 06-09-2024 Chloride [Moles/Vol] 108 mmol/L 98-108 [facility] Eosinophil percentageOrdered By: Kvng Ochoa on 06-09-2024 Eosinophils/100 WBC (Bld) 4.8 % 0-5 [facility] Erythrocyte distribution wid th ratioOrdered By: Kvng Ochoa on 06-09-2024 Erythrocyte distribution width (RBC) [Ratio] 14.6 % 11.6-14.6 [facility] Erythrocyte distribution wid th standard deviationOrdered By: Kvng Ochoa on 06-09-2024 Erythrocyte distribution width (RBC) [Entitic vol] 49.2 fL High 35.1-43.9 [facility] Erythrocyte distribution width (RBC) [Ratio] 49.2 fl High 35.1-43.9 [facility] GFR/1.73 sq M.predicted sonia g non-blacks MDRD (S/P/Bld) [Vol rate/Area]Ordered By: Kvng Ochoa on 06-09-2024 Estimated GFR (MDRD) Non-Af Amer 59 Low >60 [facility] Comment on above: mL/min/1.73m2 CKD-EP I Creatinine Equation (2020) Glomerular filtration rate ( GFR) estimation/1.73 sq m using serum, plasma, or whole bOrdered By: Kvng Ochoa on 06-09-2024 GFR/1.73 sq M.predicted among non-blacks MDRD (S/P/Bld) [Vol rate/Area] 59 mL/min/{1.73_m2} Low >60 [facility] Comment on above: mL/min/1.73m2 CKD-EP I Creatinine Equation (2020) Hematocrit Auto (Bld) [Volum e fraction]Ordered By: Kvng Ochoa on 06-09-2024 Hematocrit (Bld) [Volume fraction] 38.3 % 37-47 [facility] Hemoglobin A1c percentageOrd ered By: Kvng Ochoa on 06-09-2024 HbA1c (Bld) [Mass fraction] 6.5 % >5.7 [facility] Hemoglobin measurementOrdere d By: Kvng Ochoa on 06-09-2024 Hemoglobin (Bld) [Mass/Vol] 12.4 g/dL 12.0-15.0 [facility] Immature granulocytes/100 WB C Auto (Bld)Ordered By: Kvng Ochoa on 06-09-2024 Immature granulocytes/100 WBC (Bld) 0.200 % 0.0-0.9 [facility] Comment on above: IG% - Immature Granu locytes (promyelocytes, myelocytes and metamyelocytes) > 1% indicates that a LEFT SHIFT is Present. Lymphocytes Auto (Unsp spec) [#/Vol]Ordered By: Kvng Ochoa on 06-09-2024 Lymphocytes (Bld) [#/Vol] 2.06 10*3/uL 0.83-4.5 1 [facility] Lymphocytes/100 WBC Auto (Un sp spec)Ordered By: Kvng Ochoa on 06-09-2024 Lymphocytes/100 WBC (Bld) 23.0 % 19-41 [facility] MCV (mean corpuscular volume ) determinationOrdered By: Kvng Ochoa on 06-09-2024 MCV (RBC) [Entitic vol] 91.8 fL 81-99 [facility] Mean corpuscular hemoglobin (MCH) determinationOrdered By: Kvng Ochoa on 06-09-2024 MCH (RBC) [Entitic mass] 29.7 pg 27.0-32.0 [facility] Mean corpuscular hemoglobin concentration (MCHC) determinationOrdered By: Kvng Ochoa on 06-09-2024 MCHC (RBC) [Mass/Vol] 32.4 g/dL 32-36 [facility] Mean platelet volume determi nationOrdered By: Kvng Ochoa on 06-09-2024 Platelet mean volume (Bld) [Entitic vol] 10.2 fL 6.2-12.0 [facility] Monocyte percentageOrdered B y: Kvng Ochoa on 06-09-2024 Monocytes/100 WBC (Bld) 8.6 % 0-10 [facility] Neutrophil percentageOrdered By: Kvng Ochoa on 06-09-2024 Neutrophils/100 WBC (Bld) 62.8 % 47-70 [facility] Nucleated red blood cell per centageOrdered By: Kvng Ochoa on 06-09-2024 Nucleated RBC/100 WBC (Bld) [Ratio] 0 % 0-5 [facility] Platelet countOrdered By: Costa Ochoa on 06-09-2024 Platelets (Bld) [#/Vol] 323 10*3/uL 150-450 [facility] Potassium (Unsp spec) [Mass/ Vol]Ordered By: Kvng Ochoa on 06-09-2024 Potassium [Moles/Vol] 4.7 mmol/L 3.3-5.1 [facility] Potassium measurement (mass/ volume)Ordered By: Kvng Ochoa on 06-09-2024 Potassium (Unsp spec) [Mass/Vol] 4.7 mmol/L 3.3-5.1 [facility] RBC Auto (Bld) [#/Vol]Ordere d By: Kvng Ochoa on 06-09-2024 RBC (Bld) [#/Vol] 4.17 10*6/uL Low 4.2-5.4 [facility] Serum creatinine measurement (mass/volume)Ordered By: Kvng Ochoa on 06-09-2024 Creatinine [Mass/Vol] 0.94 mg/dL 0.70-1.20 [facility] Serum glucose measurement (m ass/volume)Ordered By: Kvng Ochoa on 06-09-2024 Glucose [Mass/Vol] 137 mg/dL High 70-99 [facility] Serum or plasma calcium viktoria urement (mass/volume)Ordered By: Kvng Ochoa on 06-09-2024 Calcium [Mass/Vol] 8.9 mg/dL 7.6-11.0 [facility] Serum or plasma urea nitroge n measurement (mass/volume)Ordered By: Kvng Ochoa on 06-09-2024 Urea nitrogen [Mass/Vol] 20 mg/dL High 4-19 [facility] Sodium levelOrdered By: Dru Ochoa on 06-09-2024 Sodium [Moles/Vol] 143 mmol/L 133-145 [facility] White blood cell (WBC) count Ordered By: Kvng Ochoa on 06-09-2024 WBC (Bld) [#/Vol] 9.0 10*3/uL 4.4-11.0 [facility] INR Coag (BldC) [Relative ti me]Ordered By: Cesar Cole on 05-19-2024 INR Coag (Bld) [Relative time] 2.9 {INR} [facility] Comment on above: Critical Value > 4.0 International normalized rat io (INR) measurement by fingerstickOrdered By: Cesar Cole on 05-19-2024 INR Coag (BldC) [Relative time] 2.9 [facility] Comment on above: Critical Value > 4.0 PT Coag (Bld) [Time]Ordered By: Cesar Cole on 05-19-2024 Bedside Prothrombin Time 30.4 SEC High 11.7-14.9 [facility] Whole blood prothrombin time Ordered By: Cesar Cole on 05-19-2024 PT Coag (Bld) [Time] 30.4 s High 11.7-14.9 [facility] Serum or plasma lamotrigine measurement (mass/volume)Ordered By: Anant Juarez on 05-12-2024 lamoTRIgine [Mass/Vol] 1.8 ug/mL Low 2.0-20.0 [facility] Comment on above: Detection Limit = 1. 0Performed at: [facility] [id number] Director: Brandon Wells MD, Phone: [phone] Venous blood ammonia measure mentOrdered By: Anant Juarez on 05-12-2024 Ammonia (P) [Moles/Vol] 17.0 umol/L 11-32 [facility] lamoTRIgine [Mass/Vol]Ordere d By: Anant Juarez on 05-12-2024 Lamotrigine (Lamictal) Level 1.8 ug/mL Low 2.0-20.0 [facility] Comment on above: Detection Limit = 1. 0Performed at: [facility] [address] [place] [id number] Director: Brandon Wells MD, Phone: [phone] Neurology Visit Reporton Neurology Visit Report [facility] [address], [address] [place] [address] OFFICE VISIT Date of Service: 05/10/24 MR#: [id number] Acct: [id number] Name: EZRA GONZALEZ Rep #: [id number] : 1935 Provider: Dr. 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 She has become lost while driving [...] nature. Th (more content not included)... Normal [facility] INR Coag (BldC) [Relative ti me]Ordered By: Cesar Cole on 05-05-2024 INR Coag (Bld) [Relative time] 2.5 {INR} [facility] Comment on above: Critical Value > 4.0 PT Coag (Bld) [Time]Ordered By: Cesar Cole on 05-05-2024 Bedside Prothrombin Time 26.9 SEC High 11.7-14.9 [facility] International normalized rat io (INR) calculationOrdered By: Kvng Ochoa on 04-28-2024 INR Coag (Bld) [Relative time] 3.4 {INR} [facility] Prothrombin timeOrdered By: Kvng Ochoa on 04-28-2024 PT Coag (PPP) [Time] 35.4 s High 11.7-14.9 [facility] International normalized rat io (INR) calculationOrdered By: Kvng Ochoa on 04-14-2024 INR Coag (Bld) [Relative time] 3.0 {INR} [facility] Prothrombin timeOrdered By: Kvng Ochoa on 04-14-2024 PT Coag (PPP) [Time] 31.4 s High 11.7-14.9 [facility] Blood urea nitrogen (BUN)/cr eatinine ratioOrdered By: Kvng Ochoa on 04-09-2024 Urea nitrogen/Creatinine [Mass ratio] 13.5 mg/mg 10- [facility] Carbon dioxide measurementOr dered By: Kvng Ochoa on 04-09-2024 CO2 [Moles/Vol] 28.0 mmol/L 21.0-32.0 [facility] Chloride measurementOrdered By: Kvng Ochoa on 04-09-2024 Chloride [Moles/Vol] 106 mmol/L 98-107 [facility] Estimated glomerular filtrat ion rate (GFR) AmericanOrdered By: Kvng Ochoa on 04-09-2024 Estimated GFR (MDRD) Amer 70 mL/min >60 [facility] Comment on above: GFR Calc Glomerular filtration rate ( GFR) estimationOrdered By: Kvng Ochoa on 04-09-2024 Estimated GFR (MDRD) Non-Af Amer 58 mL/min Low >60 [facility] Comment on above: Non- GFR Calc Glucose measurementOrdered B y: Kvng Ochoa on 04-09-2024 Glucose [Mass/Vol] 116 mg/dL High 74-106 [facility] Comment on above: Fasting Glucose resu lt from 100 to 125 mg/dL suggests IMPAIRED HOMEOSTASIS per A.D.A. criteria. Potassium measurementOrdered By: Kvng Ochoa on 04-09-2024 Potassium [Moles/Vol] 4.3 mmol/L 3.5-5.1 [facility] Serum anion gap measurementO rdered By: Kvng Ochoa on 04-09-2024 Anion gap [Moles/Vol] 3 mmol/L Low 5-15 [facility] Serum or plasma calcium viktoria urement (mass/volume)Ordered By: Knvg Ochoa on 04-09-2024 Calcium [Mass/Vol] 8.8 mg/dL 8.5-10.1 [facility] Serum or plasma creatinine m easurement (mass/volume)Ordered By: Kvng Ochoa on 04-09-2024 Creatinine [Mass/Vol] 0.96 mg/dL 0.55-1.02 [facility] Comment on above: The validity of the calculated GFR & GFRAA in patients over 70 years has not been determined. Clinical correlation is essential. Serum or plasma urea nitroge n measurement (mass/volume)Ordered By: Kvng Ochoa on 04-09-2024 Urea nitrogen [Mass/Vol] 13 mg/dL 7-18 [facility] Sodium levelOrdered By: Dru Ochoa on 04-09-2024 Sodium [Moles/Vol] 137 mmol/L 136-145 [facility] International normalized rat io (INR) calculationOrdered By: Kvng Ochoa on 04-06-2024 INR Coag (Bld) [Relative time] 2.6 {INR} [facility] Prothrombin timeOrdered By: Kvng Ochoa on 04-06-2024 PT Coag (PPP) [Time] 28.8 s High 11.7-14.9 [facility] INR Coag (BldC) [Relative ti me]Ordered By: Kvng Ochoa on 04-05-2024 INR Coag (Bld) [Relative time] 3.5 {INR} [facility] Comment on above: Critical Value > 4.0 PT Coag (Bld) [Time]Ordered By: Kvng Ochoa on 04-05-2024 Bedside Prothrombin Time 35.4 SEC High 11.7-14.9 [facility] International normalized rat io (INR) calculationOrdered By: Kvng Ochoa on 03-29-2024 INR Coag (Bld) [Relative time] 1.5 {INR} [facility] Prothrombin timeOrdered By: Kvng Ochoa on 03-29-2024 PT Coag (PPP) [Time] 17.9 s High 11.7-14.9 [facility] INR Coag (BldC) [Relative ti me]Ordered By: Kvng Ochoa on 03-26-2024 INR Coag (Bld) [Relative time] 3.4 {INR} [facility] Comment on above: Critical Value > 4.0 PT Coag (Bld) [Time]Ordered By: Kvng Ochoa on 03-26-2024 Bedside Prothrombin Time 34.4 SEC High 11.7-14.9 [facility] INR Coag (BldC) [Relative ti me]Ordered By: Kvng Ochoa on 03-25-2024 INR Coag (Bld) [Relative time] 3.8 {INR} [facility] Comment on above: Critical Value > 4.0 PT Coag (Bld) [Time]Ordered By: Kvng Ochoa on 03-25-2024 Bedside Prothrombin Time 37.8 SEC High 11.7-14.9 [facility] International normalized rat io (INR) calculationOrdered By: Kvng Ochoa on 03-19-2024 INR Coag (Bld) [Relative time] 3.0 {INR} [facility] Prothrombin timeOrdered By: Kvng Ochoa on 03-19-2024 PT Coag (PPP) [Time] 30.7 s High 11.7-14.9 [facility] INR Coag (BldC) [Relative ti me]Ordered By: Kvng Ochoa on 03-17-2024 INR Coag (Bld) [Relative time] 3.3 {INR} [facility] Comment on above: Critical Value > 4.0 PT Coag (Bld) [Time]Ordered By: Kvng Ochoa on 03-17-2024 Bedside Prothrombin Time 34.2 SEC High 11.7-14.9 [facility] INR Coag (BldC) [Relative ti me]Ordered By: Kvng Ochoa on 03-10-2024 INR Coag (Bld) [Relative time] 2.4 {INR} [facility] Comment on above: Critical Value > 4.0 PT Coag (Bld) [Time]Ordered By: Kvng Ochoa on 03-10-2024 Bedside Prothrombin Time 25.4 SEC High 11.7-14.9 [facility] International normalized rat io (INR) calculationOrdered By: Kvng Ochoa on 03-08-2024 INR Coag (Bld) [Relative time] 1.8 {INR} [facility] Prothrombin timeOrdered By: Kvng Ochoa on 03-08-2024 PT Coag (PPP) [Time] 21.1 s High 11.7-14.9 [facility] INR Coag (BldC) [Relative ti me]Ordered By: Kvng Ochoa on 03-04-2024 INR Coag (Bld) [Relative time] 1.8 {INR} [facility] Comment on above: Critical Value > 4.0 PT Coag (Bld) [Time]Ordered By: Kvng Ochoa on 03-04-2024 Bedside Prothrombin Time 20.2 SEC High 11.7-14.9 [facility] INR Coag (BldC) [Relative ti me]Ordered By: Kvng Ochoa on 02-05-2024 INR Coag (Bld) [Relative time] 2.2 {INR} [facility] Comment on above: Critical Value > 4.0 PT Coag (Bld) [Time]Ordered By: Kvng Ochoa on 02-05-2024 Bedside Prothrombin Time 22.8 SEC High 11.7-14.9 [facility] Capillary blood internationa l normalized ratio (INR)Ordered By: Alexandra Hagen on 06-30-2023 INR Coag (BldC) [Relative time] 2.4 [facility] Comment on above: Critical Value > 4.0 Whole blood prothrombin time Ordered By: Alexandra Hagen on 06-30-2023 PT Coag (Bld) [Time] 24.6 s 11.7-14.9 [facility] CARECOORDon 2023 [facility]OORD Patient Choice Patient Name: EZRA GONZALEZ Date of : 1935 [facility] CARECOORDon 06-20-2023 [facility]OORD Next Site of Care Admission Date: 06/16/2023 01:38 PM Patient Name: EZRA GONZALEZ Location: [address] [id number] Date of : 1935 ------- Placement Information ------- Referral Type:Home Health Care Services - New Referral ID:[id number] Provider Name:[facility] Address 1:[address] Address 2: City:[place] Selection Factors:Patient/Famil y Choice State:[place] Normal [facility], pt i s requesting COT [...] pt order lunch. Notified TONIO, RN and shotgun shell reprinting unit operator. . [facility] CARECOKNIGHTSEN I SPOKE WITH DONOVAN, DROP CLIPPER AT [facility]. THEY CAN TAKE PT BACK TODAY. THEY CAN PROVIDE TRANSPORTATION BACK TO FACILITY AROUND 3 PM. AWARE PT WILL NEED PT AT FACILITY, THEY USE [facility], DID LET HC LIAISON NOW. WENT TO [...] SECURE CHAT WITH CONNIE PEREZ REGARDING THIS. [facility] Laboratory - Chemistry and C hemistry - challengeon 06-20-2023 Glucose [Mass/Vol] 125 mg/dL High 70 - 100 mg/dL [facility] - Coagulationon 0 06-20-2023 PT Coag (Bld) [Time] 11.3 s 9.0 - 1 2.0 s [facility] No Panel Informationon 06-19 Interpretation and review of laboratory results Abnormal Trina Alcazar th Performed by: [facility], [address] [place] [address] CLIA ID: [id number] [facility] Radiology Study observation (narrative) Trina [...] Myocardial Infarction Performed By: #### Akanksha [id number] ####Smokehouse Worker: ALEXANDRA BUSTAMANTE ([id number])[facility] ([facility])[address] [place] [address] PT Coag (PPP) [Time] 11.3 s Normal 9.0-12.0 [facility] Comment on above: Performed By: #### Akanksha [id number] ####Smokehouse Worker: ALEXANDRA BUSTAMANTE ([id number])[facility] ([facility])[address] [place] [address] [place] PT Coag (Bld) [Time]on 06-19 INR Coag (PPP) [Relative time] 1.1 {INR} 0.9 - 1.1 [facility] Comment on above: Recommended Anticoag ulant [...] Interpretation and review of laboratory results Normal [facility] Progress Noteon 06-20-2023 Progress Note Dc via DM cot to Josep MCARTHUR with all belongings [facility] Progress Note Called report to Maryanne at [facility] Progress Note [facility] Anticoagulatio n Management Service (RIA) Inpatient Warfarin Consult HPI: Ezra Gonzalez is a 87 y.o. female admitted on 06/16/2023 for Closed displaced fracture of medial condyle of right humerus, initial encounter [S42.399B] History reviewed. No pertinent past medical history. [...] patient can be classified as high risk ([id number] = 8). 2. Monitor for s/s of bleeding and drug interactions. Will adjust dose accordingly 3. RIA will manage while inpatient Dc Lombardi, PharmD Candidate Toshia Sanches, JpD, BCPS RIA is available daily [phone] via [employer]. If no response on [employer] Chat then please page [phone]. Normal [facility] BASIC METABOLIC PANELon 05-30 Anion gap [Moles/Vol] 11 mmol/L Normal 3-13 [facility] Comment on above: Performed By: #### L [id number] ####Smokehouse Worker: ALEXANDRA BUSTAMANTE ([id number])[facility] ([address] Calcium [Mass/Vol] 8.3 mg/dL Low 8.4-10.4 [facility] Comment on above: Performed By: #### L [id number] ####Smokehouse Worker: ALEXANDRA BUSTAMANTE ([phone])[facility] ([facility])[address] [place] [address] [place] Chloride [Moles/Vol] 102 mmol/L Normal 98-107 [facility] Comment on above: Performed By: #### L [id number] ####Smokehouse Worker: ALEXANDRA BUSTAMANTE ([id number])[facility] ([facility])[address] [place] [address] [place] CO2 [Moles/Vol] 21 mmol/L Low 22-30 [facility] Comment on above: Performed By: #### L [id number] ####Smokehouse Worker: ALEXANDRA BUSTAMANTE ([phone])[facility] ([facility])[address] [place] [address] [place] Creatinine [Mass/Vol] 0.84 mg/dL Normal 0.52-1.04 [facility] Comment on above: Performed By: #### L [id number] ####Smokehouse Worker: ALEXANDRA BUSTAMANTE ([phone])[facility] ([facility])[address] [place] [address] [place] GLOMERULAR FILTRATION RATE ML/MIN/1.73 SQ M.PREDICTED 67.4 mL/min/1.73m*2 Normal >60.0 [facility] Comment on above: Result Comment: Calc ulation based on the Chronic Kidney Disease Epidemiology Collaboration (CKD-EPI) equation refit without adjustment for race Performed By: #### L [id number] ####Smokehouse Worker: ALEXANDRA BUSTAMANTE ([id number])[facility] ([facility])[address] [place] [address] [place] Glucose [Mass/Vol] 263 mg/dL High 70-100 [facility] Comment on above: Performed By: #### L [id number] ####Smokehouse Worker: ALEXANDRA BUSTAMANTE ([phone])[facility] ([facility])[address] [place] [address] [place] Potassium [Moles/Vol] 4.7 mmol/L Normal 3.5-5.1 [facility] Comment on above: Performed By: #### L [id number] ####Smokehouse Worker: ALEXANDRA BUSTAMANTE ([phone])[facility] ([facility])[address] [place] [address] Sodium [Moles/Vol] 133 mmol/L Low 135-145 [facility] Comment on above: Performed By: #### L [id number] ####Smokehouse Worker: ALEXANDRA BUSTAMANTE ([phone])[facility] ([facility])[address] [place] [address] Urea nitrogen [Mass/Vol] 27 mg/dL High 7-17 [facility] Comment on above: Performed By: #### L [id number] ####Smokehouse Worker: ALEXANDRA BUSTAMANTE ([phone])[facility] ([facility])[address] [place] [address] Basic metabolic 1998 panelon 06-19-2023 Anion gap [Moles/Vol] 11 mmol/L 3 - 13 mmol/L [facility] Calcium [Mass/Vol] 8.3 mg/dL Low 8.4 - 10. 4 mg/dL [facility] Chloride [Moles/Vol] 102 mmol/L 98 - 10 7 mmol/L [facility] CO2 [Moles/Vol] 21 mmol/L Low 22 - 30 mmol/L [facility] Creatinine [Mass/Vol] 0.84 mg/dL 0.52 - 1.04 mg/dL [facility] GFR/1.73 sq M.predicted MDRD (S/P/Bld) [Vol rate/Area] 67.4 mL/min/{1.73_m2} - PINF [facility] Comment on above: Calculation based on the Chronic Kidney Disease Epidemiology Collaboration (CKD-EPI) equation refit without adjustment for race Glucose [Mass/Vol] 263 mg/dL High 70 - 100 mg/dL [facility] Interpretation and review of laboratory results Abnormal [facility] Potassium [Moles/Vol] 4.7 mmol/L 3.5 - 5.1 mmol/L [facility] Sodium [Moles/Vol] 133 mmol/L Low 135 - 145 mmol/L [facility] Urea nitrogen [Mass/Vol] 27 mg/dL High 7 - 17 mg/dL [facility] CARECOORDon 06-19-2023 CARECOKNIGHTSEN DAY #1 S/P ORIF OF RIGHT ARM. WAITING FOR PT/OT EVALS FOR DC PLANNING. Normal [facility] CBC W Auto Differential pane l (Bld)Ordered By: Leona Thakur on 06-19-2023 Basophils (Bld) [#/Vol] 0.0 10*3/uL 0.0 - 0.2 10*3/uL [facility] Basophils/100 WBC (Bld) 0.2 % 0.0 - 2.0 % [facility] Eosinophils (Bld) [#/Vol] 0.0 10*3/uL 0. 0 - 0.5 10*3/uL [facility] Eosinophils/100 WBC (Bld) 0.0 % 0.0 - 6.0 % [facility] Erythrocyte distribution width (RBC) [Ratio] 13.6 % 11.5 - 15.0 % [facility] Hematocrit (Bld) [Volume fraction] 35.0 % 35.0 - 47.0 % [facility] Hemoglobin (Bld) [Mass/Vol] 11.4 g/dL Low 11.7 - 16.0 g/dL [facility] Immature granulocytes (Bld) [#/Vol] 0.1 10*3/uL High NINF - 0.1 10*3/uL [facility] Immature granulocytes/100 WBC (Bld) 0.6 % 0.0 - 2.0 % [facility] Interpretation and review of laboratory results Abnormal [facility] th Lymphocytes (Bld) [#/Vol] 0.8 10*3/uL Low 1. 0 - 4.3 10*3/uL [facility] Lymphocytes/100 WBC (Bld) 6.4 % Low 15 .0 - 45.0 % [facility] MCH (RBC) [Entitic mass] 28.6 pg 26. 0 - 34.0 pg [facility] MCHC (RBC) [Mass/Vol] 32.6 % 30.5 - 36.0 % [facility] MCV (RBC) [Entitic vol] 87.9 fL 77.0 - 99.0 fL [facility] Monocytes (Bld) [#/Vol] 0.6 10*3/uL 0.0 - 0.9 10*3/uL [facility] Monocytes/100 WBC (Bld) 4.6 % Low 5.0 - 13.0 % [facility] Neutrophils (Bld) [#/Vol] 11.2 10*3/uL High 1. 8 - 7.5 10*3/uL [facility] Neutrophils/100 WBC (Bld) 88.2 % High 38 .0 - 82.0 % [facility] Nucleated RBC/100 WBC (Bld) [Ratio] 0.0 % [facility] Platelet mean volume (Bld) [Entitic vol] 10.2 fL 9.0 - 12.7 fL [facility] Platelets (Bld) [#/Vol] 260 10*3/uL 140 - 440 10*3/uL [facility] RBC (Bld) [#/Vol] 3.98 10*6/uL 3.80 - 5.2 0 10*6/uL [facility] WBC (Bld) [#/Vol] 12.7 10*3/uL High 3.6 - 10.7 10*3/uL [facility] CBC WITH AUTO DIFFERENTIALon 06-19-2023 Basophils (Bld) [#/Vol] 0.0 10*3/uL Normal 0.0-0.2 [facility] Comment on above: Performed By: #### L [id number] ####Smokehouse Worker: ALEXANDRA BUSTAMANTE ([phone])[facility] ([facility])[address] [place] [address] Basophils/100 WBC (Bld) 0.2 % Normal 0.0-2.0 [facility] Comment on above: Performed By: #### L [id number] ####Smokehouse Worker: ALEXANDRA BUSTAMANTE ([phone])[facility] ([facility])[address] [place] [address] [place] Eosinophils (Bld) [#/Vol] 0.0 10*3/uL Normal 0.0-0.5 [facility] Comment on above: Performed By: #### L [id number] ####Smokehouse Worker: ALEXANDRA BUSTAMANTE ([id number])[facility] ([facility])[address] [place] [address] [place] Eosinophils/100 WBC (Bld) 0.0 % Normal 0.0-6.0 [facility] Comment on above: Performed By: #### L [id number] ####Smokehouse Worker: ALEXANDRA BUSTAMANTE ([phone])[facility])[address] [place] [address] Erythrocyte distribution width (RBC) [Ratio] 13.6 % Normal 11.5-15.0 [facility] Comment on above: Performed By: #### L [id number] ####Smokehouse Worker: ALEXANDRA BUSTAMANTE ([phone])[facility])[address] [place] [address] Hematocrit (Bld) [Volume fraction] 35.0 % Normal 35.0-47.0 [facility] Comment on above: Performed By: #### L [id number] ####Smokehouse Worker: ALEXANDRA BUSTAMANTE ([phone])[address] Hemoglobin (Bld) [Mass/Vol] 11.4 g/dL Low 11.7-16.0 [facility] Comment on above: Performed By: #### L [id number] ####Smokehouse Worker: ALEXANDRA BUSTAMANTE ([phone])[facility])[address] [place] [address] IMMATURE GRANS % 0.6 % Normal 0.0-2.0 [facility] Comment on above: Performed By: #### L [id number] ####Smokehouse Worker: ALEXANDRA BUSTAMANTE ([id number])[facility])[address] [place] [address] IMMATURE GRANS ABSOLUTE 0.1 10*3/uL High <0.1 [facility] Comment on above: Performed By: #### L [id number] ####Smokehouse Worker: ALEXANDRA BUSTAMANTE ([id number])[facility])[address] [place] [address] Lymphocytes (Bld) [#/Vol] 0.8 10*3/uL Low 1.0-4.3 [facility] Comment on above: Performed By: #### L [id number] ####Smokehouse Worker: ALEXANDRA BUSTAMANTE ([phone])[facility])[address] [place] [address] Lymphocytes/100 WBC (Bld) 6.4 % Low 15.0-45.0 [facility] Comment on above: Performed By: #### L [id number] ####Smokehouse Worker: ALEXANDRA BUSTAMANTE ([phone])[facility])[address] [place] [address] MCH (RBC) [Entitic mass] 28.6 pg Normal 26.0-34.0 [facility] Comment on above: Performed By: #### L [id number] ####Smokehouse Worker: ALEXANDRA BUSTAMANTE ([id number])[facility])[address] [place] [address] MCHC 32.6 % Normal 30.5-36.0 [facility] Comment on above: Performed By: #### L [id number] ####Smokehouse Worker: ALEXANDRA BUSTAMANTE ([phone])[facility])[address] [place] [address] MCV (RBC) [Entitic vol] 87.9 fL Normal 77.0-99.0 [facility] Comment on above: Performed By: #### L [id number] ####Smokehouse Worker: ALEXANDRA BUSTAMANTE ([id number])[facility])[address] [place] [address] Monocytes (Bld) [#/Vol] 0.6 10*3/uL Normal 0.0-0.9 [facility] Comment on above: Performed By: #### L [id number] ####Smokehouse Worker: ALEXANDRA BUSTAMANTE ([phone])[facility])[address] [place] [address] Monocytes/100 WBC (Bld) 4.6 % Low 5.0-13.0 [facility] Comment on above: Performed By: #### L [id number] ####Smokehouse Worker: ALEXANDRA [id number])[facility] ([facility])[address] [place] [address] NEUTROPHILS ABSOLUTE 11.2 10*3/uL High 1.8-7.5 [facility] Comment on above: Performed By: #### L [id number] ####Smokehouse Worker: ALEXANDRA BUSTAMANTE ([id number])[facility])[address] [place] [address] Neutrophils/100 WBC (Bld) 88.2 % High 38.0-82.0 [facility] Comment on above: Performed By: #### L [id number] ####Smokehouse Worker: ALEXANDRA BUSTAMANTE ([phone])[facility])[address] [place] [address] NRBC 0.0 /100 WBCs Normal 0.0-2.0 [facility] Comment on above: Performed By: #### L [id number] ####Smokehouse Worker: ALEXANDRA BUSTAMANTE ([id number])[facility] ([facility])[address] [place] [address] Platelet mean volume (Bld) [Entitic vol] 10.2 fL Normal 9.0-12.7 [facility] Comment on above: Performed By: #### L [id number] ####Smokehouse Worker: ALEXANDRA BUSTAMANTE ([id number])[facility] ([facility])[address] [place] [address] Platelets (Bld) [#/Vol] 260 10*3/uL Normal 140-440 [facility] Comment on above: Performed By: #### L [id number] ####Smokehouse Worker: ALEXANDRA BUSTAMANTE ([id number])[facility] ([facility])[address] [place] [address] RBC (Bld) [#/Vol] 3.98 10*6/uL Normal 3.80-5.20 [facility] Comment on above: Performed By: #### L [id number] ####Smokehouse Worker: LAEXANDRA BUSTAMANTE ([phone])[facility] ([facility])[address] [place] [address] [place] WBC (Bld) [#/Vol] 12.7 10*3/uL High 3.6-10.7 [facility] Comment on above: Performed By: #### L [id number] ####Smokehouse Worker: ALEXANDRA BUSTAMANTE ([phone])[facility] ([facility])[address] [place] [address] Laboratory - Chemistry and C hemistry - challengeon 06-19-2023 Glucose [Mass/Vol] 220 mg/dL High 70 - 100 mg/dL [facility] Glucose [Mass/Vol] 137 mg/dL High 70 - 100 mg/dL [facility] Glucose [Mass/Vol] 141 mg/dL High 70 - 100 mg/dL [facility] Glucose [Mass/Vol] 177 mg/dL High 70 - 100 mg/dL [facility] Laboratory - Coagulationon 0 06-19-2023 PT Coag (Bld) [Time] 11.3 s 9.0 - 1 2.0 s [facility] No Panel Informationon 06-18 Interpretation and review of laboratory results Abnormal [facility] Performed by: [facility], [address] [place] [address] CLIA ID: [id number] [facility] Interpretation and review of laboratory results Abnormal [facility] Performed by: [facility], [address] [place] [address] CLIA ID: [id number] [facility] Interpretation and review of laboratory results Abnormal [facility] th Performed by: [facility], [address] [place] [address] CLIA ID: [id number] [facility] Interpretation and review of laboratory results Abnormal [facility] th Performed by: [facility], [address] [place] [address] CLIA ID: [id number] [facility] Radiology Study observation (narrative) Trina Oconnell alth [...] Myocardial Infarction Performed By: #### L [id number] ####Smokehouse Worker: ALEXANDRA BUSTAMANTE ([id number])[facility] ([facility])[address] [place] [address] PT Coag (PPP) [Time] 11.3 s Normal 9.0-12.0 [facility] Comment on above: Performed By: #### Akanksha [id number] ####Smokehouse Worker: ALEXANDRA BUSTAMANTE ([id number])[facility] ([facility])[address] [place] [address] PT Coag (Bld) [Time]on 06-18 INR Coag (PPP) [Relative time] 1.1 {INR} 0.9 - 1.1 [facility] Comment on above: Recommended Anticoag ulant [...] Interpretation and review of laboratory results Normal [facility] Progress Noteon 06-19-2023 Progress Note [facility] Anticoagulatio n Management Service (RIA) Inpatient Warfarin Consult HPI: Ezra Gonzalez is a 87 y.o. female admitted on 06/16/2023 for Closed displaced fracture of medial condyle of right humerus, initial encounter [T60.897F] History reviewed. No pertinent past medical history. [...] patient can be classified as high risk ([id number] = 8). 2. Monitor for s/s of bleeding and drug interactions. Will adjust dose accordingly 3. RIA will manage while inpatient Dc Lombardi, PharmD Candidate Jp BolanosD, BCPS RIA is available daily [phone] via [employer]. If no response on [employer] Chat then please page [phone]. Normal [facility] BASIC METABOLIC PANELon 05-30-2023 Anion gap [Moles/Vol] 10 mmol/L Normal 3-13 [facility] Comment on above: Performed By: #### L [id number] ####Smokehouse Worker: ALEXANDRA BUSTAMANTE ([id number])[facility])[address] [place] [address] Calcium [Mass/Vol] 8.8 mg/dL Normal 8.4-10.4 [facility] Comment on above: Performed By: #### L AB15 ####Smokehouse Worker: ALEXANDRA BUSTAMANTE ([id number])[facility] ([facility])[address] [place] [address] [place] Chloride [Moles/Vol] 98 mmol/L Normal 98-107 [facility] Comment on above: Performed By: #### L AB15 ####Smokehouse Worker: ALEXANDRA BUSTAMANTE ([id number])[facility] ([facility])[address] [place] [address] [place] CO2 [Moles/Vol] 25 mmol/L Normal 22-30 [facility] Comment on above: Performed By: #### L AB15 ####Smokehouse Worker: ALEXANDRA BUSTAMANTE ([id number])[address] Creatinine [Mass/Vol] 0.83 mg/dL Normal 0.52-1.04 [facility] Comment on above: Performed By: #### L AB15 ####Smokehouse Worker: ALEXANDRA BUSTAMANTE ([id number])[address] GLOMERULAR FILTRATION RATE ML/MIN/1.73 SQ M.PREDICTED 68.3 mL/min/1.73m*2 Normal >60.0 [facility] Comment on above: Result Comment: Calc ulation based on the Chronic Kidney Disease Epidemiology Collaboration (CKD-EPI) equation refit without adjustment for race Performed By: #### L AB15 ####Smokehouse Worker: ALEXANDRA BUSTAMANTE ([id number])[address] Glucose [Mass/Vol] 163 mg/dL Normal [facility] Comment on above: Performed By: #### L AB15 ####Smokehouse Worker: ALEXANDRA [id number])[address] Order Comment: If no t done within the last 3 mos Performed By: #### L AB90 ####Smokehouse Worker: ALEXANDRA BUSTAMANTE ([phone])[address] Potassium [Moles/Vol] 4.6 mmol/L Normal 3.5-5.1 [facility] Comment on above: Performed By: #### L AB15 ####Smokehouse Worker: ALEXANDRA BUSTAMANTE ([id number])[address] Sodium [Moles/Vol] 133 mmol/L Low 135-145 [facility] Comment on above: Performed By: #### L AB15 ####Smokehouse Worker: ALEXANDRA [id number])[facility] ([facility])[address] [place] [address] Urea nitrogen [Mass/Vol] 24 mg/dL High 7-17 [facility] Comment on above: Performed By: #### L AB15 ####Smokehouse Worker: ALEXANDRA BUSTAMANTE ([id number])[facility] ([facility])[address] [place] [address] Basic metabolic 1998 panelon 06-18-2023 Anion gap [Moles/Vol] 10 mmol/L 3 - 13 mmol/L [facility] Calcium [Mass/Vol] 8.8 mg/dL 8.4 - 10. 4 mg/dL [facility] Chloride [Moles/Vol] 98 mmol/L 98 - 10 7 mmol/L [facility] CO2 [Moles/Vol] 25 mmol/L 22 - 30 mmol/L [facility] Creatinine [Mass/Vol] 0.83 mg/dL 0.52 - 1.04 mg/dL [facility] GFR/1.73 sq M.predicted MDRD (S/P/Bld) [Vol rate/Area] 68.3 mL/min/{1.73_m2} - PINF [facility] Comment on above: Calculation based on the Chronic Kidney Disease Epidemiology Collaboration (CKD-EPI) equation refit without adjustment for race Glucose [Mass/Vol] 163 mg/dL High 70 - 100 mg/dL [facility] Interpretation and review of laboratory results Abnormal [facility] Potassium [Moles/Vol] 4.6 mmol/L 3.5 - 5.1 mmol/L [facility] Sodium [Moles/Vol] 133 mmol/L Low 135 - 145 mmol/L [facility] Urea nitrogen [Mass/Vol] 24 mg/dL High 7 - 17 mg/dL [facility] CARECOORDon 06-18-2023 [facility] Care Managment Initial Assessment Date: 06/18/2023 Patient Name: Ezra Gonzalez : 1935 Patient Information Source of Information: Patient Cognition/Language: WFL - Within Functional Limits Permission given to speak with patient junior sales representative/caregi saira as indicated: No Confirmation of Payer with patient/family: Yes Payer Name: [facility] Alleene: No Confirmation of Primary Care Physician: Confirmed [...] CONTINUE TO FOLLOW. Shikha Gray RN Normal [facility] CBC W Auto Differential pane l (Bld)Ordered By: Nir Meza on 06-18-2023 Basophils (Bld) [#/Vol] 0.1 10*3/uL 0.0 - 0.2 10*3/uL [facility] Basophils/100 WBC (Bld) 0.4 % 0.0 - 2.0 % [facility] Eosinophils (Bld) [#/Vol] 0.2 10*3/uL 0. 0 - 0.5 10*3/uL [facility] Eosinophils/100 WBC (Bld) 1.3 % 0.0 - 6.0 % [facility] Erythrocyte distribution width (RBC) [Ratio] 13.8 % 11.5 - 15.0 % [facility] Hematocrit (Bld) [Volume fraction] 44.1 % 35.0 - 47.0 % [facility] Hemoglobin (Bld) [Mass/Vol] 13.9 g/dL 11.7 - 16.0 g/dL [facility] Immature granulocytes (Bld) [#/Vol] 0.1 10*3/uL High NINF - 0.1 10*3/uL [facility] Immature granulocytes/100 WBC (Bld) 0.4 % 0.0 - 2.0 % [facility] Interpretation and review of laboratory results Abnormal [facility] th Lymphocytes (Bld) [#/Vol] 2.0 10*3/uL 1. 0 - 4.3 10*3/uL [facility] Lymphocytes/100 WBC (Bld) 13.1 % Low 15 .0 - 45.0 % [facility] MCH (RBC) [Entitic mass] 28.0 pg 26. 0 - 34.0 pg [facility] MCHC (RBC) [Mass/Vol] 31.5 % 30.5 - 36.0 % [facility] MCV (RBC) [Entitic vol] 88.9 fL 77.0 - 99.0 fL [facility] Monocytes (Bld) [#/Vol] 1.4 10*3/uL High 0.0 - 0.9 10*3/uL [facility] Monocytes/100 WBC (Bld) 9.0 % 5.0 - 13.0 % [facility] Neutrophils (Bld) [#/Vol] 11.8 10*3/uL High 1. 8 - 7.5 10*3/uL [facility] Neutrophils/100 WBC (Bld) 75.8 % 38 .0 - 82.0 % [facility] Nucleated RBC/100 WBC (Bld) [Ratio] 0.0 % [facility] Platelet mean volume (Bld) [Entitic vol] 10.1 fL 9.0 - 12.7 fL [facility] Platelets (Bld) [#/Vol] 375 10*3/uL 140 - 440 10*3/uL [facility] RBC (Bld) [#/Vol] 4.96 10*6/uL 3.80 - 5.2 0 10*6/uL [facility] WBC (Bld) [#/Vol] 15.5 10*3/uL High 3.6 - 10.7 10*3/uL [facility] CBC WITH AUTO DIFFERENTIALon 06-18-2023 Basophils (Bld) [#/Vol] 0.1 10*3/uL Normal 0.0-0.2 [facility] Comment on above: Performed By: #### L [id number] ####Smokehouse Worker: ALEXANDRA BUSTAMANTE ([phone])[facility] ([facility])[address] [place] [address] [place] Basophils/100 WBC (Bld) 0.4 % Normal 0.0-2.0 [facility] Comment on above: Performed By: #### L [id number] ####Smokehouse Worker: ALEXANDRA BUSTAMANTE ([id number])[facility])[address] [place] [address] Eosinophils (Bld) [#/Vol] 0.2 10*3/uL Normal 0.0-0.5 [facility] Comment on above: Performed By: #### L [id number] ####Smokehouse Worker: ALEXANDRA BUSTAMANTE ([phone])[facility] ([facility])[address] [place] [address] Eosinophils/100 WBC (Bld) 1.3 % Normal 0.0-6.0 [facility] Comment on above: Performed By: #### L [id number] ####Smokehouse Worker: ALEXANDRA BUSTAMANTE ([id number])[facility])[address] [place] [address] Erythrocyte distribution width (RBC) [Ratio] 13.8 % Normal 11.5-15.0 [facility] Comment on above: Performed By: #### L [id number] ####Smokehouse Worker: ALEXANDRA BUSTAMANTE ([id number])[facility] ([facility])[address] [place] [address] Hematocrit (Bld) [Volume fraction] 44.1 % Normal 35.0-47.0 [facility] Comment on above: Performed By: #### L [id number] ####Smokehouse Worker: ALEXANDRA BUSTAMANTE ([phone])[facility])[address] [place] [address] Hemoglobin (Bld) [Mass/Vol] 13.9 g/dL Normal 11.7-16.0 [facility] Comment on above: Performed By: #### L [id number] ####Smokehouse Worker: ALEXANDRA BUSTAMANTE ([id number])[facility])[address] [place] [address] IMMATURE GRANS % 0.4 % Normal 0.0-2.0 [facility] Comment on above: Performed By: #### L [id number] ####Smokehouse Worker: ALEXANDRA BUSTAMANTE ([id number])[facility])[address] [place] [address] IMMATURE GRANS ABSOLUTE 0.1 10*3/uL High <0.1 [facility] Comment on above: Performed By: #### L [id number] ####Smokehouse Worker: ALEXANDRA BUSTAMANTE ([id number])[facility])[address] [place] [address] Lymphocytes (Bld) [#/Vol] 2.0 10*3/uL Normal 1.0-4.3 [facility] Comment on above: Performed By: #### L [id number] ####Smokehouse Worker: ALEXANDRA BUSTAMANTE ([id number])[address] Lymphocytes/100 WBC (Bld) 13.1 % Low 15.0-45.0 [facility] Comment on above: Performed By: #### L [id number] ####Smokehouse Worker: ALEXANDRA BUSTAMANTE ([phone])[facility])[address] [place] [address] MCH (RBC) [Entitic mass] 28.0 pg Normal 26.0-34.0 [facility] Comment on above: Performed By: #### L [id number] ####Smokehouse Worker: ALEXANDRA BUSTAMANTE ([id number])[facility])[address] [place] [address] MCHC 31.5 % Normal 30.5-36.0 [facility] Comment on above: Performed By: #### L [id number] ####Smokehouse Worker: ALEXANDRA BUSTAMANTE ([id number])[facility] ([facility])[address] [place] [address] MCV (RBC) [Entitic vol] 88.9 fL Normal 77.0-99.0 [facility] Comment on above: Performed By: #### L [id number] ####Smokehouse Worker: ALEXANDRA BUSTAMANTE ([id number])[facility] ([facility])[address] [place] [address] Monocytes (Bld) [#/Vol] 1.4 10*3/uL High 0.0-0.9 [facility] Comment on above: Performed By: #### L [id number] ####Smokehouse Worker: ALEXANDRA BUSTAMANTE ([id number])[facility] ([facility])[address] [place] [address] Monocytes/100 WBC (Bld) 9.0 % Normal 5.0-13.0 [facility] Comment on above: Performed By: #### L [id number] ####Smokehouse Worker: ALEXANDRA BUSTAMANTE ([id number])[facility] ([facility])[address] [place] [address] NEUTROPHILS ABSOLUTE 11.8 10*3/uL High 1.8-7.5 [facility] Comment on above: Performed By: #### L [id number] ####Smokehouse Worker: ALEXANDRA BUSTAMANTE ([id number])[facility] ([facility])[address] [place] [address] Neutrophils/100 WBC (Bld) 75.8 % Normal 38.0-82.0 [facility] Comment on above: Performed By: #### L [id number] ####Smokehouse Worker: ALEXANDRA BUSTAMANTE ([id number])[facility])[address] [place] [address] NRBC 0.0 /100 WBCs Normal 0.0-2.0 [facility] Comment on above: Performed By: #### L [id number] ####Smokehouse Worker: ALEXANDRA BUSTAMANTE ([id number])[facility])[address] [place] [address] Platelet mean volume (Bld) [Entitic vol] 10.1 fL Normal 9.0-12.7 [facility] Comment on above: Performed By: #### L [id number] ####Smokehouse Worker: ALEXANDRA BUSTAMANTE ([id number])[facility])[address] [place] [address] Platelets (Bld) [#/Vol] 375 10*3/uL Normal 140-440 [facility] Comment on above: Performed By: #### L [id number] ####Smokehouse Worker: ALEXANDRA BUSTAMANTE ([id number])[facility])[address] [place] [address] RBC (Bld) [#/Vol] 4.96 10*6/uL Normal 3.80-5.20 [facility] Comment on above: Performed By: #### L [id number] ####Smokehouse Worker: ALEXANDRA BUSTAMANTE ([id number])[facility])[address] [place] [address] WBC (Bld) [#/Vol] 15.5 10*3/uL High 3.6-10.7 [facility] Comment on above: Performed By: #### L [id number] ####Smokehouse Worker: ALEXANDRA BUSTAMANTE ([id number])[facility])[address] [place] [address] HEMOGLOBIN A1Con 06-18-2023 HbA1c (Bld) [Mass fraction] [...] have dyshemoglobinemia. Performed By: #### L AB90 ####Smokehouse Worker: ALEXANDRA BUSTAMANTE ([id number])[facility])[address] [place] [address] [place] IDNon 06-18-2023 IDN The patient is Moderately Stable - Low risk of patient condition declining or worsening The patient's goals for the shift include rest and pain control The clinical goals for the shift include rest and pain control Normal [facility] Laboratory - Chemistry and C hemistry - challengeon 06-18-2023 Glucose [Mass/Vol] 189 mg/dL High 70 - 100 mg/dL [facility] Procalcitonin [Mass/Vol] 0.06 ng/mL 0.0 0 - 0.09 ng/mL [facility] Glucose [Mass/Vol] 121 mg/dL High 70 - 100 mg/dL [facility] Average glucose Estimated from glycated hemoglobin (Bld) [Mass/Vol] 163 mg/dL [facility] - Hematology and Cell countson 06-18-2023 HbA1c (Bld) [Mass fraction] 7.3 % High NINF - 5.7 % [facility] Comment on above: Normal less than 5.7 % Prediabetes 5.7% to 6.4% Diabetes 6.5% or higher --HgbA1C levels may not be accurate in patients who have renal disease, received recent blood transfusions, are anemic, or who have dyshemoglobinemia. No Panel Informationon 06-17 Interpretation and review of laboratory results Abnormal [facility] Performed by: [facility], [address] [place] [address] CLIA ID: [id number] [facility] There is no interpretation needed for this exam. IMAGING Interpretation and review of laboratory results Abnormal [facility] Performed by: [facility], [address] [place] [address] CLIA ID: [id number] [facility] Interpretation and review of laboratory results Abnormal [facility] Radiology Study observation (narrative) [...] [facility] Op Noteon 06-18-2023 Op Note [facility] [address] [facility] [address] Dept: [phone] Loc: [phone] Operative Report Patient Name: Ezra Gonzalez Date of : 1935 Date of Surgery: 06/18/23 Pre-operative diagnosis: Right intra-articular distal humerus fracture Post-operative diagnosis: Same Procedure(s): Open reduction internal fixation of right intra-articular distal humerus fracture Surgeon: Benitez Givens M.D. Customer Business Manager(s): Lexa Aparicio M.D. Anesthesia: General and [...] as well as medical complications such as MT, stroke, PE, DVT, and even . Pt [...] at 06/18/23, 7:20 PM [facility] Op Note Date: 06/16/2023 - 06/18/2023 Location: [facility] OR Name: Ezra Gonzalez, : 1935, Diagnosis Pre-op Diagnosis * Closed displaced fracture of medial condyle of right humerus, initial encounter [S42.828Y] Post-op Diagnosis * Closed displaced fracture of medial condyle of right humerus, initial encounter [S47.191H] Procedures OPEN REDUCTION INTERNAL FIXATION RIGHT DISTAL HUMERUS 79929 - DE OPTX HUMERAL SHFT FX W/PLATE/SCREWS W/WOCERCLAGE Surgeons * Benitez Givens - Primary Procedure Summary Anesthesia: * No anesthesia type entered * ASA: III Estimated Blood Loss: Minimal Drains: * None in log * Staff: Fleet Director: Vivian Herrera RN Scrub Person: Linda [...] in 2 weeks -Ortho to follow. Normal [employer] [facility] PROCALCITONIN TESTon 024 PROCALCITONIN 0.06 ng/mL Normal 0.00-0.09 [facility] Comment on above: Result Comment: ORDE R COMMENTS: PCT <0.50 = Low risk of severe sepsis and/or septic shock. PCT >2.00 = High risk of severe sepsis and/or septic shock. Performed By: #### L [id number] ####Smokehouse Worker: ALEXANDRA BUSTAMANTE ([id number])[facility] ([facility])[address] [place] [address] Procalcitonin [Mass/Vol]on 0 06-18-2023 Interpretation and review of laboratory results Normal [facility] PCT <0.50 = Low risk of severe sepsis and/or septic shock. PCT >2.00 = High risk of severe sepsis and/or septic shock. [facility] Progress Noteon 06-18-2023 Progress Note Nutrition rescreen completed. Chart reviewed. Patient to be monitored and followed by the diet diesel truck technician. Ele Butcher, DT [facility] Progress Note OCCUPATIONAL THERAPY [facility] Name/MRN: Ezra Gonzalez ([id number]) Date: 06/18/2023 OT eval and treat order received. Patient chart reviewed. Per Ortho note, "Plan for ORIF od R distal humerus." Will hold evaluation till after surgery. Louisa Cespedes, OT Normal [facility] Progress Note PHYSICAL THERAPY [facility] Name/MRN: Ezra Gonzalez ([id number]) Date: 06/18/2023 PT orders received and chart reviewed. Per ortho note, "Plan for ORIF R distal humerus". Will hold and attempt following surgery. Maryanne Neumann, PT [facility] ECG 12-LEADon 06-17-2023 ECG 12-LEAD IMPRESSION: Atrial fibrillation Probable left ventricular hypertrophy No previous ECG for comparison Electronically Signed On 06-17-2023 06:39:12 EDT by Thong Francois [facility] ED Nursing Noteon 06-17-2023 ED Nursing Note Patient resting in bed at this time, equal unlabored respirations noted and no acute distress, call león within reach Di Reyna RN 06/17/23 1153 [facility] ED Nursing Note Pt O2 desaturating t o mid 80s after receiving dilaudid IV. Pt placed on 2L NC and immediately back up to 95%. notified Alia Foster RN 06/17/23 1031 [facility] ED Nursing Note Pt upset with intermittent [...] IV line. Juanjo Pringle RN 06/16/23 6091 Normal [facility] - Chemistry and C hemistry - challengeon 06-17-2023 Glucose [Mass/Vol] 137 mg/dL High 70 - 100 mg/dL [facility] Laboratory - Coagulationon 0 06-17-2023 PT Coag (Bld) [Time] 14.5 s High 9.0 - 1 2.0 s [facility] No Panel Informationon 06-16 Interpretation and review of laboratory results Abnormal [facility] th Performed by: [facility], [address] [place] [address] CLIA ID: [id number] [facility] Atrial fibrillation Probable left ventricular hypertrophy No previous ECG for comparison Electronically Signed On 06-17-2023 06:39:12 EDT by Thong Arvizu D O - 06/17/2023 IMPRESSION: Atrial fibrillation Probable left ventricular hypertrophy No previous ECG for comparison Electronically Signed On 06-17-2023 06:39:12 EDT by Thong Francois [facility] Radiology Study observation (narrative) [facility] No Panel InformationOrdered By: Thong Francois on 06-17-2023 P [place] 0 degrees [facility] Work Phone: DE Interval 0 ms [facility] [employer] Work Phone: QRS [place] -24 degrees [facility] [employer] Work Phone: QRSD Interval 103 ms [facility] Work Phone: QT Interval 382 ms [facility] [employer] Work Phone: QTC Interval 442 ms [facility] [employer] Work Phone: T Wave [place] 31 degrees [facility] [employer] Work Phone: [facility] [employer] Work Phone: Nursing Noteon 06-17-2023 Nursing Note [...] Infarction Performed By: #### L [id number] #### Smokehouse Worker: ALEXANDRA BUSTAMANTE ([phone]) [facility] ([facility]) [address] [place] [address] PT Coag (PPP) [Time] 14.5 s High 9.0-12.0 [facility] Comment on above: Performed By: #### L [id number] #### Smokehouse Worker: ALEXANDRA BUSTAMANTE ([phone]) [facility] ([facility]) [address] [place] [address] PT Coag (Bld) [Time]on 06-16 INR Coag (PPP) [Relative time] 1.4 {INR} High 0.9 - 1.1 [facility] Comment on above: Recommended Anticoag ulant [...] Interpretation and review of laboratory results Abnormal [facility] Progress Noteon 06-17-2023 Progress Note Due to OR availability, case cancelled for today. Moved to tomorrow, 06/17. Ok for diet today. NPO @[place]. Keep splint C/D/I. Evette Viera MD Orthopaedic Surgery, PGY-5 [phone] Normal [facility] Vital signsOrdered By: Neeta Francois on 06-17-2023 Heart rate 80 /min bpm [employer] Work Phone: XR Chest Single viewon 06-16 No acute cardiopulmonary process identified. Other chronic findings as discussed. 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 [facility] Houston Chau MD - 06/17/2023 Patient [...] Signed Date/Time: 06/17/2023 12:44 AM EDT [facility] Radiology Study observation (narrative) [facility] XR Chest Single viewOrdered By: Houston Chau on 06-17-2023 [facility] Work Phone: Absolute lymphocyte countOrd ered By: Lali Pimentel on 06-16-2023 Lymphocytes Auto (Unsp spec) [#/Vol] 3.86 10*3/uL 0.83-4.51 [facility] Automated lymphocyte count a s percentage of total leukocytesOrdered By: Llai Pimentel on 06-16-2023 Lymphocytes/100 WBC Auto (Unsp spec) 23.0 % 19-41 [facility] BASIC METABOLIC PANELon 05-29 Anion gap [Moles/Vol] 7 mmol/L Normal 3-13 [facility] Comment on above: Performed By: #### L [id number] ####Smokehouse Worker: ALEXANDRA BUSTAMANTE ([phone])[facility] ([facility])[address] [place] [address] [place] Calcium [Mass/Vol] 8.6 mg/dL Normal 8.4-10.4 [facility] Comment on above: Performed By: #### L [id number] ####Smokehouse Worker: ALEXANDRA BUSTAMANTE ([phone])[facility] ([facility] [place] [address] [place] Chloride [Moles/Vol] 99 mmol/L Normal 98-107 [facility] Comment on above: Performed By: #### L AB15 ####Smokehouse Worker: ALEXANDRA BUSTAMANTE ([phone])[facility] ([facility] [place] [address] [place] CO2 [Moles/Vol] 29 mmol/L Normal 22-30 [facility] Comment on above: Performed By: #### L AB15 ####Smokehouse Worker: ALEXANDRA BUSTAMANTE ([phone])[facility])[address] [place] [address] Creatinine [Mass/Vol] 0.79 mg/dL Normal 0.52-1.04 [facility] Comment on above: Performed By: #### L AB15 ####Smokehouse Worker: ALEXANDRA BUSTAMANTE ([phone])[facility])[address] [place] [address] GLOMERULAR FILTRATION RATE ML/MIN/1.73 SQ M.PREDICTED 72.5 mL/min/1.73m*2 Normal >60.0 [facility] Comment on above: Result Comment: Calc ulation based on the Chronic Kidney Disease Epidemiology Collaboration (CKD-EPI) equation refit without adjustment for race Performed By: #### L AB15 ####Smokehouse Worker: ALEXANDRA BUSTAMANTE ([id number])[facility])[address] [place] [address] Glucose [Mass/Vol] 186 mg/dL High 70-100 [facility] Comment on above: Performed By: #### L AB15 ####Smokehouse Worker: ALEXANDRA BUSTAMANTE ([phone])[facility])[address] [place] [address] Potassium [Moles/Vol] 4.5 mmol/L Normal 3.5-5.1 [facility] Comment on above: Performed By: #### L AB15 ####Smokehouse Worker: ALEXANDRA BUSTAMANTE ([phone])[facility])[address] [place] [address] [place] Sodium [Moles/Vol] 136 mmol/L Normal 135-145 [facility] Comment on above: Performed By: #### L AB15 ####Smokehouse Worker: ALEXANDRA BUSTAMANTE ([phone])[facility])[address] [place] [address] [place] Urea nitrogen [Mass/Vol] 26 mg/dL High 7-17 [facility] Comment on above: Performed By: #### L AB15 ####Smokehouse Worker: ALEXANDRA BUSTAMANTE ([phone])[facility] ([facility])[address] [place] [address] BLOOD TYPE AND SCREEN GELon 06-16-2023 ABO GROUPING A Normal [facility] Comment on above: Performed By: #### L [id number] ####Smokehouse Worker: ALEXANDRA BUSTAMANTE ([phone])[facility] ([facility])[address] [place] [address] RH TYPE IN BLOOD Positive Normal [facility] Comment on above: Performed By: #### L [id number] ####Smokehouse Worker: ALEXANDRA BUSTAMANTE ([phone])[facility] ([facility])[address] [place] [address] Basic metabolic 1998 panelon 06-16-2023 Anion gap [Moles/Vol] 7 mmol/L 3 - 13 mmol/L [facility] Calcium [Mass/Vol] 8.6 mg/dL 8.4 - 10. 4 mg/dL [facility] Chloride [Moles/Vol] 99 mmol/L 98 - 10 7 mmol/L [facility] CO2 [Moles/Vol] 29 mmol/L 22 - 30 mmol/L [facility] Creatinine [Mass/Vol] 0.79 mg/dL 0.52 - 1.04 mg/dL [facility] GFR/1.73 sq M.predicted MDRD (S/P/Bld) [Vol rate/Area] 72.5 mL/min/{1.73_m2} - PINF [facility] Comment on above: Calculation based on the Chronic Kidney Disease Epidemiology Collaboration (CKD-EPI) equation refit without adjustment for race Glucose [Mass/Vol] 186 mg/dL High 70 - 100 mg/dL [facility] Interpretation and review of laboratory results Abnormal [facility] Potassium [Moles/Vol] 4.5 mmol/L 3.5 - 5.1 mmol/L [facility] Sodium [Moles/Vol] 136 mmol/L 135 - 145 mmol/L [facility] Urea nitrogen [Mass/Vol] 26 mg/dL High 7 - 17 mg/dL [facility] Basophil percentageOrdered B y: Lali Pimentel on 06-16-2023 Basophils/100 WBC (Bld) 0.4 % 0-1 [facility] Chloride [Moles/Vol] 104 mmol/L 98-107 [facility] Eosinophils/100 WBC (Bld) 1.3 % 0-5 [facility] Glucose [Mass/Vol] 191 mg/dL 74-106 [facility] Comment on above: Fasting Glucose resu lt greater than or equal to 126 mg/dL suggests DIABETES MELLITUS per A.D.A. criteria. Hemoglobin (Bld) [Mass/Vol] 13.6 g/dL 12.0-15.0 [facility] Monocytes/100 WBC (Bld) 7.0 % 0-10 [facility] Neutrophils (Bld) [#/Vol] 11.4 10*3/uL 2.0-7.7 [facility] Neutrophils/100 WBC (Bld) 67.8 % 47-70 [facility] Potassium [Moles/Vol] 3.4 mmol/L 3.5-5.1 [facility] Sodium [Moles/Vol] 140 mmol/L 136-145 [facility] WBC (Bld) [#/Vol] 16.8 10*3/uL 4.4-11.0 [facility] Blood type and Crossmatch pa ro (Bld)on 06-16-2023 Blood group antibody screen GEL Ql Negative [facility] CBC W Auto Differential pane l (Bld)on 06-16-2023 Basophils (Bld) [#/Vol] 0.0 10*3/uL 0.0 - 0.2 10*3/uL [facility] Basophils/100 WBC (Bld) 0.2 % 0.0 - 2.0 % [facility] Eosinophils (Bld) [#/Vol] 0.0 10*3/uL 0. 0 - 0.5 10*3/uL [facility] Eosinophils/100 WBC (Bld) 0.0 % 0.0 - 6.0 % [facility] Erythrocyte distribution width (RBC) [Ratio] 13.6 % 11.5 - 15.0 % [facility] Hematocrit (Bld) [Volume fraction] 38.9 % 35.0 - 47.0 % [facility] Hemoglobin (Bld) [Mass/Vol] 12.8 g/dL 11.7 - 16.0 g/dL [facility] Immature granulocytes (Bld) [#/Vol] 0.1 10*3/uL High NINF - 0.1 10*3/uL [facility] Immature granulocytes/100 WBC (Bld) 0.6 % 0.0 - 2.0 % [facility] Interpretation and review of laboratory results Abnormal [facility] th Lymphocytes (Bld) [#/Vol] 1.1 10*3/uL 1. 0 - 4.3 10*3/uL [facility] Lymphocytes/100 WBC (Bld) 6.5 % Low 15 .0 - 45.0 % [facility] MCH (RBC) [Entitic mass] 29.1 pg 26. 0 - 34.0 pg [facility] MCHC (RBC) [Mass/Vol] 32.9 % 30.5 - 36.0 % [facility] MCV (RBC) [Entitic vol] 88.4 fL 77.0 - 99.0 fL [facility] Monocytes (Bld) [#/Vol] 0.7 10*3/uL 0.0 - 0.9 10*3/uL [facility] Monocytes/100 WBC (Bld) 4.4 % Low 5.0 - 13.0 % [facility] Neutrophils (Bld) [#/Vol] 14.3 10*3/uL High 1. 8 - 7.5 10*3/uL [facility] Neutrophils/100 WBC (Bld) 88.3 % High 38 .0 - 82.0 % [facility] Nucleated RBC/100 WBC (Bld) [Ratio] 0.0 % [facility] Platelet mean volume (Bld) [Entitic vol] 9.9 fL 9.0 - 12.7 fL [facility] Platelets (Bld) [#/Vol] 357 10*3/uL 140 - 440 10*3/uL [facility] RBC (Bld) [#/Vol] 4.40 10*6/uL 3.80 - 5.2 0 10*6/uL [facility] WBC (Bld) [#/Vol] 16.2 10*3/uL High 3.6 - 10.7 10*3/uL [facility] CBC WITH AUTO DIFFERENTIALon 06-16-2023 Basophils (Bld) [#/Vol] 0.0 10*3/uL Normal 0.0-0.2 [facility] Comment on above: Performed By: #### L [id number] ####Smokehouse Worker: ALEXANDRA BUSTAMANTE ([id number])[facility])[address] [place] [address] Basophils/100 WBC (Bld) 0.2 % Normal 0.0-2.0 [facility] Comment on above: Performed By: #### L [id number] ####Smokehouse Worker: ALEXANDRA BUSTAMANTE ([phone])[facility])[address] [place] [address] Eosinophils (Bld) [#/Vol] 0.0 10*3/uL Normal 0.0-0.5 [facility] Comment on above: Performed By: #### L [id number] ####Smokehouse Worker: ALEXANDRA BUSTAMANTE ([phone])[facility])[address] [place] [address] Eosinophils/100 WBC (Bld) 0.0 % Normal 0.0-6.0 [facility] Comment on above: Performed By: #### L [id number] ####Smokehouse Worker: ALEXANDRA BUSTAMANTE ([phone])[facility])[address] [place] [address] Erythrocyte distribution width (RBC) [Ratio] 13.6 % Normal 11.5-15.0 [facility] Comment on above: Performed By: #### L [id number] ####Smokehouse Worker: ALEXANDRA BUSTAMANTE ([phone])[facility])[address] [place] [address] Hematocrit (Bld) [Volume fraction] 38.9 % Normal 35.0-47.0 [facility] Comment on above: Performed By: #### L [id number] ####Smokehouse Worker: ALEXANDRA BUSTAMANTE ([phone])[facility])[address] [place] [address] Hemoglobin (Bld) [Mass/Vol] 12.8 g/dL Normal 11.7-16.0 [facility] Comment on above: Performed By: #### L [id number] ####Smokehouse Worker: ALEXANDRA [id number])[facility] ([facility])[address] [place] [address] IMMATURE GRANS % 0.6 % Normal 0.0-2.0 [facility] Comment on above: Performed By: #### L [id number] ####Smokehouse Worker: ALEXANDRA BUSTAMANTE ([phone])[facility])[address] [place] [address] IMMATURE GRANS ABSOLUTE 0.1 10*3/uL High <0.1 [facility] Comment on above: Performed By: #### L [id number] ####Smokehouse Worker: ALEXANDRA BUSTAMANTE ([phone])[facility])[address] [place] [address] Lymphocytes (Bld) [#/Vol] 1.1 10*3/uL Normal 1.0-4.3 [facility] Comment on above: Performed By: #### L [id number] ####Smokehouse Worker: ALEXANDRA BUSTAMANTE ([phone])[facility])[address] [place] [address] Lymphocytes/100 WBC (Bld) 6.5 % Low 15.0-45.0 [facility] Comment on above: Performed By: #### L [id number] ####Smokehouse Worker: ALEXANDRA BUSTAMANTE ([phone])[facility])[address] [place] [address] MCH (RBC) [Entitic mass] 29.1 pg Normal 26.0-34.0 [facility] Comment on above: Performed By: #### L [id number] ####Smokehouse Worker: ALEXANDRA BUSTAMANTE ([phone])[facility])[address] [place] [address] MCHC 32.9 % Normal 30.5-36.0 [facility] Comment on above: Performed By: #### L [id number] ####Smokehouse Worker: ALEXANDRA BUSTAMANTE ([phone])[facility])[address] [place] [address] MCV (RBC) [Entitic vol] 88.4 fL Normal 77.0-99.0 [facility] Comment on above: Performed By: #### L [id number] ####Smokehouse Worker: ALEXANDRA BUSTAMANTE ([phone])[facility])[address] [place] [address] Monocytes (Bld) [#/Vol] 0.7 10*3/uL Normal 0.0-0.9 [facility] Comment on above: Performed By: #### L [id number] ####Smokehouse Worker: ALEXANDRA BUSTAMANTE ([phone])[facility] ([facility])[address] [place] [address] Monocytes/100 WBC (Bld) 4.4 % Low 5.0-13.0 [facility] Comment on above: Performed By: #### L [id number] ####Smokehouse Worker: ALEXANDRA BUSTAMANTE ([phone])[facility])[address] [place] [address] NEUTROPHILS ABSOLUTE 14.3 10*3/uL High 1.8-7.5 [facility] Comment on above: Performed By: #### L [id number] ####Smokehouse Worker: ALEXANDRA BUSTAMANTE ([phone])[facility])[address] [place] [address] Neutrophils/100 WBC (Bld) 88.3 % High 38.0-82.0 [facility] Comment on above: Performed By: #### L [id number] ####Smokehouse Worker: ALEXANDRA BUSTAMANTE ([phone])[facility])[address] [place] [address] NRBC 0.0 /100 WBCs Normal 0.0-2.0 [facility] Comment on above: Performed By: #### L [id number] ####Smokehouse Worker: ALEXANDRA BUSTAMANTE ([phone])[facility])[address] [place] [address] Platelet mean volume (Bld) [Entitic vol] 9.9 fL Normal 9.0-12.7 [facility] Comment on above: Performed By: #### L [id number] ####Smokehouse Worker: ALEXANDRA BUSTAMANTE ([id number])[facility] ([facility])[address] [place] [address] Platelets (Bld) [#/Vol] 357 10*3/uL Normal 140-440 [facility] Comment on above: Performed By: #### L [id number] ####Smokehouse Worker: ALEXANDRA BUSTAMANTE ([id number])[facility] ([facility])[address] [place] [address] RBC (Bld) [#/Vol] 4.40 10*6/uL Normal 3.80-5.20 [facility] Comment on above: Performed By: #### L [id number] ####Smokehouse Worker: ALEXANDRA BUSTAMANTE ([id number])[facility] ([facility])[address] [place] [address] WBC (Bld) [#/Vol] 16.2 10*3/uL High 3.6-10.7 [facility] Comment on above: Performed By: #### L [id number] ####Smokehouse Worker: ALEXANDRA BUSTAMANTE ([phone])[facility] ([facility])[address] [place] [address] CT ELBOW RIGHT WO IV CONTRAS Ton 06-16-2023 CT ELBOW RIGHT WO IV CONTRAST [facility] Name: [facility] 1935 [id number] Exam Date/Time: 06/16/2023 18:01 Procedure: CT ELBOW [...] Electronically Signed Date/Time: 06/16/2023 6:13 PM T [facility] Patient Name: EZRA [...] process fracture. Joint effusion. Decreased osseous mineralization. [facility] Pastor Francisco MD [...] Electronically Signed Date/Time: 06/16/2023 6:13 PM EDT [facility] Radiology Study observation (narrative) [facility] chalo Consulton 06-16-2023 Consult Ortho Consult Patient: Ezra Gonzalez Date of : 1935 Acct: [id number] PCP: No primary care provider on file. Date of Admission: 06/16/2023 Date of Service: Pt seen/examined on 06/16/2023 Chief Complaint: right distal humerus fracture History Of Present Illness: This is a 87 y.o. right hand dominant female who presents with a right distal humerus fracture after a fall at home. Patient originally presented to [facility] where she was splinted and transferred to [facility] ED for ortho eval. Patient denies numbness, tingling, or weakness. Denies pain elsewhere and denies head trauma or LOC. 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. Patient has prior ortho surgery history of bilateral TKAs and right shoulder surgery, left carpal tunnel release, all at [facility]. Denies alcohol, tobacco, drug use. [...] "RH", "LAB (more content not included)... Normal [facility] Determination of erythrocyte mean corpuscular volume (MCV)Ordered By: Lali Pimentel on 06-16-2023 MCV (RBC) [Entitic vol] 90.3 fL 81-99 [facility] ED Provider Noteon 4 ED Provider Note Emergency Department Encounter [facility] EMERGENCY DEPT Patient: Ezra Gonzalez : [...] for clarification.) Sae Conde MD Acute Care [facility] Sae Conde MD 06/16/23 1626 [facility] ED Provider Note EMERGENCY DEPARTMENT ENCOUNTER Pt [...] injury anywhere else. Patient was evaluated at [facility] emergency department prior to arrival and was noted to have a distal humerus fracture. Patient was transferred to [facility] ED for orthopedic consultation. Patient denies [...] distribution width (RBC) [Ratio] 13.3 % 11.6-14.6 [facility] Erythrocyte distribution wid th standard deviationOrdered By: Lali Pimentel on 06-16-2023 Erythrocyte distribution width (RBC) [Entitic vol] 43.9 fL 35.1-43.9 [facility] Hematocrit Auto (Bld) [Volum e fraction]Ordered By: Lali Pimentel on 06-16-2023 Hematocrit (Bld) [Volume fraction] 42.6 % 37-47 [facility] Immature granulocytes/100 WB C Auto (Bld)Ordered By: Lali Pimentel on 06-16-2023 Immature granulocytes/100 WBC (Bld) 0.500 % 0.0-0.9 [facility] Comment on above: IG% - Immature Granu locytes (promyelocytes, myelocytes and metamyelocytes) > 1% indicates that a LEFT SHIFT is Present. Laboratory - Blood bankon ABO group Nom (Bld) A [facility] D Ag Ql (RBC) Positive [facility] Laboratory - Chemistry and C hemistry - challengeOrdered By: Lali Pimentel on 06-16-2023 CO2 [Moles/Vol] 31.0 mmol/L 21.0-32.0 [facility] Urea nitrogen/Creatinine [Mass ratio] 20.9 mg/mg 10-20 [facility] Laboratory - Coagulationon 0 06-16-2023 PT Coag (Bld) [Time] 22.3 s High 9.0 - 1 2.0 s [facility] Laboratory - CoagulationOrde red By: Lali Pimentel on 06-16-2023 INR Coag (Bld) [Relative time] 2.2 {INR} [facility] PT Coag (PPP) [Time] 24.3 s 11.7-14.9 [facility] Laboratory - Hematology and Cell countsOrdered By: Lali Pimentel on 06-16-2023 MCH (RBC) [Entitic mass] 28.8 pg 27.0-32.0 [facility] MCHC (RBC) [Mass/Vol] 31.9 g/dL 32-36 [facility] Nucleated RBC/100 WBC (Bld) [Ratio] 0 % 0-5 [facility] Platelet mean volume (Bld) [Entitic vol] 9.9 fL 6.2-12.0 [facility] Platelets (Bld) [#/Vol] 414 10*3/uL 150-450 [facility] No Panel Informationon 06-15 [facility] No Panel InformationOrdered By: Lali Pimentel on 06-16-2023 Estimated Creatinine Clearance Calc 35.56 ml/min [facility] Estimated GFR (MDRD) Amer 57 mL/min >60 [facility] Comment on above: GFR Calc Estimated GFR (MDRD) Non-Af Amer 47 mL/min >60 [facility] Comment on above: Non- GFR Calc [...] Myocardial Infarction Performed By: #### Akanksha [id number] ####Smokehouse Worker: ALEXANDRA BUSTAMANTE ([phone])[facility] ([facility])[address] [place] [address] PT Coag (PPP) [Time] 22.3 s High 9.0-12.0 [facility] Comment on above: Performed By: #### Akanksha [id number] ####Smokehouse Worker: ALEXANDRA BUSTAMANTE ([phone])[facility] ([facility])[address] [place] [address] PT Coag (Bld) [Time]on 06-15 INR Coag (PPP) [Relative time] 2.2 {INR} High 0.9 - 1.1 [facility] Comment on above: Recommended Anticoag ulant [...] th RBC Auto (Bld) [#/Vol]Ordere d By: Lail Pimentel on 06-16-2023 RBC (Bld) [#/Vol] 4.72 10*6/uL 4.2-5.4 [facility] Serum or plasma calcium viktoria urement (mass/volume)Ordered By: Lali Pimentel on 06-16-2023 Calcium [Mass/Vol] 8.8 mg/dL 8.5-10.1 [facility] Serum or plasma creatinine m easurement (mass/volume)Ordered By: Lali Pimentel on 06-16-2023 Creatinine [Mass/Vol] 1.15 mg/dL 0.55-1.02 [facility] Comment on above: The validity of the calculated GFR & GFRAA in patients over 70 years has not been determined. Clinical correlation is essential. Serum or plasma urea nitroge n measurement (mass/volume)Ordered By: Lali Pimentel on 06-16-2023 Urea nitrogen [Mass/Vol] 24 mg/dL 10-15 [facility] Thin prep Papanicolaou smear with manual screeningOrdered By: Lali Pimentel on 06-16-2023 Thin prep Papanicolaou smear with manual screening 5 08-12 [facility] XR Elbow - right 2 Viewson 0 06-16-2023 Patient Name: EZRA GONZALEZ : 1935 [id number] Exam Date/Time: 06/16/2023 15:20 Procedure: XR ELBOW [...] MD Electronically Signed Date/Time: 06/16/2023 3:38 PM [facility] Sae Dudley MD - 06/16/2023 Patient Name: EZRA GONZALEZ : 1935 [facility]#: [id number] Exam Date/Time: 06/16/2023 15:20 Procedure: XR ELBOW [...] MD Electronically Signed Date/Time: 06/16/2023 3:38 PM [facility] Radiology Study observation (narrative) [facility] XR Elbow - right 2 ViewsOrde red By: Sae Dudley on 06-16-2023 [facility] Work Phone: XR Elbow - right [...] MD Electronically Signed Date/Time: 06/16/2023 3:24 PM [facility] Patient Name: EZRA GONZALEZ : 1935 [facility]#: [id number] Exam Date/Time: 06/16/2023 14:30 Procedure: XR ELBOW 3+ VIEWS RIGHT Ordering Provider: TENORIO KASSIDY Reason For Exam: comminuted slightly displaced supracondylar fx of distal humerus with extension to the medial epicondyle - seen at [place] cannot see imaging Examination: Right elbow Clinical Indication: Pain Comparison: None [facility] Pastor Francisco MD - 06/16/2023 Patient Name: EZRA GONZALEZ : 1935 Exam Date/Time: 06/16/2023 14:30 Procedure: XR ELBOW 3+ VIEWS RIGHT Ordering Provider: TENORIO KASSIDY Reason For Exam: comminuted slightly displaced supracondylar fx of distal humerus with extension to the medial epicondyle - seen at [place] cannot see imaging Examination: Right elbow Clinical [...] Signed Date/Time: 06/16/2023 3:24 PM EDT [facility] Radiology Study observation (narrative) [facility] [place] [facility] XR Elbow - right 3 ViewsOrde red By: Pastor Francisco on 06-16-2023 [facility] Work Phone: XR Shoulder - right [...] Electronically Signed Date/Time: 06/16/2023 3:30 PM EDT [facility] Patient Name: EZRA [...] glenohumeral joint. Acromioclavicular joint appears grossly intact. [facility] Reji Lemus MD - 06/16/2023 [facility] Name: [facility] : 1935 [id number] Exam Date/Time: 06/16/2023 15:20 Procedure: XR SHOULDER [...] Signed Date/Time: 06/16/2023 3:30 PM EDT [facility] Radiology Study observation (narrative) [facility] X[facility] Shoulder - right 2 ViewsO rdered By: Reji Lemus on 06-16-2023 [facility] [employer] Work Phone: Capillary blood internationa l normalized ratio (INR)Ordered By: Alexandra Hagen on 05-30-2023 INR Coag (BldC) [Relative time] 1.7 [facility] Comment on above: Critical Value > 4.0 Whole blood prothrombin time Ordered By: Alexandra Hagen on 05-30-2023 PT Coag (Bld) [Time] 18.0 s 11.7-14.9 [facility] Absolute lymphocyte countOrd ered By: Alexandra Hagen on 05-12-2023 Lymphocytes Auto (Unsp spec) [#/Vol] 1.60 10*3/uL 0.83-4.51 [facility] Automated lymphocyte count a s percentage of total leukocytesOrdered By: Alexandra Hagen on 05-12-2023 Lymphocytes/100 WBC Auto (Unsp spec) 20.2 % 19-41 [facility] Basophil percentageOrdered B y: Alexandra Hagen on 05-12-2023 Basophils/100 WBC (Bld) 0.5 % 0-1 [facility] Chloride [Moles/Vol] 109 mmol/L 98-107 [facility] Eosinophils/100 WBC (Bld) 3.7 % 0-5 [facility] Glucose [Mass/Vol] 206 mg/dL 74-106 [facility] Comment on above: Glucose result great er than or equal to 200 mg/dLsuggests DIABETES MELLITUS per A.D.A. criteria. Hemoglobin (Bld) [Mass/Vol] 13.1 g/dL 12.0-15.0 [facility] Monocytes/100 WBC (Bld) 7.8 % 0-10 [facility] Neutrophils (Bld) [#/Vol] 5.3 10*3/uL 2.0-7.7 [facility] Neutrophils/100 WBC (Bld) 67.5 % 47-70 [facility] Potassium [Moles/Vol] 4.6 mmol/L 3.5-5.1 [facility] Comment on above: Moderate Hemolysis, Result may be falsely increased. Sodium [Moles/Vol] 140 mmol/L 136-145 [facility] WBC (Bld) [#/Vol] 7.9 10*3/uL 4.4-11.0 [facility] Determination of erythrocyte mean corpuscular volume (MCV)Ordered By: Alexandra Hagen on 05-12-2023 MCV (RBC) [Entitic vol] 93.1 fL 81-99 [facility] Erythrocyte distribution wid th ratioOrdered By: Alexandra Hagen on 05-12-2023 Erythrocyte distribution width (RBC) [Ratio] 13.5 % 11.6-14.6 [facility] Erythrocyte distribution wid th standard deviationOrdered By: Alexandra Hagen on 05-12-2023 Erythrocyte distribution width (RBC) [Entitic vol] 46.0 fL 35.1-43.9 [facility] Hematocrit Auto (Bld) [Volum e fraction]Ordered By: Alexandra Hagen on 05-12-2023 Hematocrit (Bld) [Volume fraction] 41.8 % 37-47 [facility] Immature granulocytes/100 WB C Auto (Bld)Ordered By: Alexandra Hagen on 05-12-2023 Immature granulocytes/100 WBC (Bld) 0.300 % 0.0-0.9 [facility] Comment on above: IG% - Immature Granu locytes (promyelocytes, myelocytes and metamyelocytes) > 1% indicates that a LEFT SHIFT is Present. Laboratory - Chemistry and C hemistry - challengeOrdered By: Alexandra Hagen on 05-12-2023 CO2 [Moles/Vol] 25.0 mmol/L 21.0-32.0 [facility] Urea nitrogen/Creatinine [Mass ratio] 13.7 mg/mg 10-20 [facility] Laboratory - Hematology and Cell countsOrdered By: Alexandra Hagen on 05-12-2023 MCH (RBC) [Entitic mass] 29.2 pg 27.0-32.0 [facility] MCHC (RBC) [Mass/Vol] 31.3 g/dL 32-36 [facility] Nucleated RBC/100 WBC (Bld) [Ratio] 0 % 0-5 [facility] Platelet mean volume (Bld) [Entitic vol] 10.6 fL 6.2-12.0 [facility] Platelets (Bld) [#/Vol] 272 10*3/uL 150-450 [facility] No Panel InformationOrdered By: Alexandra Hagen on 05-12-2023 Estimated GFR (MDRD) Amer 53 mL/min >60 [facility] Comment on above: GFR Calc Estimated GFR (MDRD) Non-Af Amer 43 mL/min >60 [facility] Comment on above: Non- GFR Calc RBC Auto (Bld) [#/Vol]Ordere d By: Alexandra Hagen on 05-12-2023 RBC (Bld) [#/Vol] 4.49 10*6/uL 4.2-5.4 [facility] Serum or plasma calcium viktoria urement (mass/volume)Ordered By: Alexandra Hagen on 05-12-2023 Calcium [Mass/Vol] 8.5 mg/dL 8.5-10.1 [facility] Serum or plasma creatinine m easurement (mass/volume)Ordered By: Alexandra Hagen on 05-12-2023 Creatinine [Mass/Vol] 1.24 mg/dL 0.55-1.02 [facility] Comment on above: The validity of the calculated GFR & GFRAA in patients over 70 years has not been determined. Clinical correlation is essential. Serum or plasma urea nitroge n measurement (mass/volume)Ordered By: Alexandra Hagen on 05-12-2023 Urea nitrogen [Mass/Vol] 17 mg/dL 10-15 [facility] Thin prep Papanicolaou smear with manual screeningOrdered By: Alexandra Hagen on 05-12-2023 Thin prep Papanicolaou smear with manual screening 6 08-12 [facility] Whole blood hemoglobin A1c/t otal hemoglobin ratio (mass fraction)Ordered By: Alexandra Hagen on 05-12-2023 HbA1c (Bld) [Mass fraction] 6.8 % 3.8-5.6 [facility] Comment on above: Normal < 5.7 % Predi abetic 5.7 - 6.4 % Diabetic >or= 6.5 % Please note range changes. Capillary blood internationa l normalized ratio (INR)Ordered By: Alexandra Hagen on 05-01-2023 INR Coag (BldC) [Relative time] 2.0 [facility] Comment on above: Critical Value > 4.0 Whole blood prothrombin time Ordered By: Alexandra Hagen on 05-01-2023 PT Coag (Bld) [Time] 21.0 s 11.7-14.9 [facility] International normalized rat io (INR) calculationOrdered By: Alexandra Hagen on 04-17-2023 INR Coag (PPP) [Relative time] 1.8 {INR} [facility] Laboratory - CoagulationOrde red By: Alexandra Hagen on 04-17-2023 PT Coag (PPP) [Time] 21.0 s 11.7-14.9 [facility] Laboratory - CoagulationOrde red By: Alexandra Hagen on 03-20-2023 INR Coag (Bld) [Relative time] 2.4 {INR} [facility] Comment on above: Critical Value > 4.0 Whole blood prothrombin time Ordered By: Alexandra Hagen on 03-20-2023 PT Coag (Bld) [Time] 25.7 s 11.7-14.9 [facility] Basophil percentageOrdered B y: Alexandra Hagen on 02-21-2023 Bilirubin [Mass/Vol] 0.60 mg/dL 0.20-1.00 [facility] Comment on above: For patients on eltr ombopag therapy, use of Dimension [place] TBIL is not recommended. Chloride [Moles/Vol] 107 mmol/L 98-107 [facility] Cholesterol [Mass/Vol] 127 mg/dL <200 [facility] Comment on above: <200 mg/dL Desirable 200-240 mg/dL Borderline >240 mg/dL High Risk Glucose [Mass/Vol] 134 mg/dL 74-106 [facility] Comment on above: Fasting Glucose resu lt greater than or equal to 126 mg/dL suggests DIABETES MELLITUS per A.D.A. criteria. Potassium [Moles/Vol] 4.2 mmol/L 3.5-5.1 [facility] Protein [Mass/Vol] 6.2 g/dL 6.4-8.2 [facility] Sodium [Moles/Vol] 138 mmol/L 136-145 [facility] Triglyceride [Mass/Vol] 102 mg/dL <199 [facility] Comment on above: The drugs N-Acetylcy steine and Metamizole may falsely depress this assay.Serum Triglycerides Reference Interval Normal <150 mg/dL Borderline high 150 - 199 mg/dL High 200 - 499 mg/dL Very High > or = 500 mg/dL WBC (Bld) [#/Vol] 7.7 10*3/uL 4.4-11.0 [facility] Blood erythrocytes count (nu mber/volume)Ordered By: Alexandra Hagen on 02-21-2023 RBC (Bld) [#/Vol] 4.19 10*6/uL 4.2-5.4 [facility] Blood hemoglobin measurement (mass/volume)Ordered By: Alexandra Hagen on 02-21-2023 Hemoglobin (Bld) [Mass/Vol] 12.5 g/dL 12.0-15.0 [facility] Blood platelet mean volumeOr dered By: Alexandra Hagen on 02-21-2023 Platelet mean volume (Bld) [Entitic vol] 10.8 fL 6.2-12.0 [facility] Determination of erythrocyte mean corpuscular volume (MCV)Ordered By: Alexandra Hagen on 02-21-2023 MCV (RBC) [Entitic vol] 91.2 fL 81-99 [facility] Hematocrit Auto (Bld) [Volum e fraction]Ordered By: Alexandra Hagen on 02-21-2023 Hematocrit (Bld) [Volume fraction] 38.2 % 37-47 [facility] INR in Blood by Coagulation assayOrdered By: Alexandra Hagen on 02-21-2023 INR Coag (Bld) [Relative time] 2.3 {INR} [facility] Laboratory - Chemistry and C hemistry - challengeOrdered By: Alexandra Hagen on 02-21-2023 ALP [Catalytic activity/Vol] 84 U/L 45-117 [facility] ALT [Catalytic activity/Vol] 11 U/L 13-56 [facility] CO2 [Moles/Vol] 27.0 mmol/L 21.0-32.0 [facility] Globulin (S) [Mass/Vol] 3.3 g/dL 2.2-4.2 [facility] Urea nitrogen/Creatinine [Mass ratio] 14.0 mg/mg 10-20 [facility] Laboratory - CoagulationOrde red By: Alexandra Hagen on 02-21-2023 PT Coag (PPP) [Time] 25.3 s 11.7-14.9 [facility] Laboratory - Hematology and Cell countsOrdered By: Alexandra Hagen on 02-21-2023 Erythrocyte distribution width (RBC) [Entitic vol] 44.8 fL 35.1-43.9 [facility] Erythrocyte distribution width (RBC) [Ratio] 13.4 % 11.6-14.6 [facility] MCH (RBC) [Entitic mass] 29.8 pg 27.0-32.0 [facility] MCHC Auto (RBC) [Mass/Vol]Or dered By: Alexandra Hagen on 02-21-2023 MCHC (RBC) [Mass/Vol] 32.7 g/dL 32-36 [facility] No Panel InformationOrdered By: Alexandra Hagen on 02-21-2023 Estimated GFR (MDRD) Amer 68 mL/min >60 [facility] Comment on above: GFR Calc Estimated GFR (MDRD) Non-Af Amer 56 mL/min >60 [facility] Comment on above: Non- GFR Calc Platelets bldOrdered By: Alexandra Hagen on 02-21-2023 Platelets (Bld) [#/Vol] 297 10*3/uL 150-450 [facility] Serum or plasma albumin viktoria urement (mass/volume)Ordered By: Alexandra Hagen on 02-21-2023 Albumin [Mass/Vol] 2.9 g/dL 3.2-5.0 [facility] Serum or plasma albumin/glob ulin mass ratioOrdered By: Alexandra Hagen on 02-21-2023 Albumin/Globulin [Mass ratio] 0.9 {ratio} 0.9-2.4 [facility] Serum or plasma calcium viktoria urement (mass/volume)Ordered By: Alexandra Hagen on 02-21-2023 Calcium [Mass/Vol] 8.4 mg/dL 8.5-10.1 [facility] Serum or plasma cholesterol in HDL measurement (mass/volume)Ordered By: Alexandra Hagen on 02-21-2023 Cholesterol in HDL [Mass/Vol] 50 mg/dL >40 [facility] Comment on above: The drugs N-Acetylcy steine and Metamizole may falsely depress this assay. Reference Range HDL <40 mg/dL Low HDL Cholesterol HDL >or= 60 mg/dL High HDL Cholesterol Serum or plasma cholesterol in VLDL measurement (mass/volume)Ordered By: Alexandra Hagen on 02-21-2023 Cholesterol in VLDL [Mass/Vol] 20 mg/dL 5-40 [facility] Serum or plasma creatinine m easurement (mass/volume)Ordered By: Alexandra Hagen on 02-21-2023 Creatinine [Mass/Vol] 1.00 mg/dL 0.55-1.02 [facility] Comment on above: The validity of the calculated GFR & GFRAA in patients over 70 years has not been determined. Clinical correlation is essential. Serum or plasma low density lipoprotein (LDL) cholesterol measurement (mass/volume)Ordered By: Alexandra Hagen on 02-21-2023 Cholesterol in LDL [Mass/Vol] 57 mg/dL 0-130 [facility] Serum or plasma urea nitroge n measurement (mass/volume)Ordered By: Alexandra Hagen on 02-21-2023 Urea nitrogen [Mass/Vol] 14 mg/dL 7-18 [facility] Thin prep Papanicolaou smear with manual screeningOrdered By: Alexandra Hagen on 02-21-2023 Thin prep Papanicolaou smear with manual screening 16 U/L 15-37 [facility] Thin prep Papanicolaou smear with manual screening 4 5-15 [facility] Albumin Elph [Mass/Vol]Order ed By: Anant Juarez on 01-20-2023 Albumin [Mass/Vol] 3.4 g/dL 2.9-4.4 [facility] Basophil percentageOrdered B y: Anant Juarez on 01-20-2023 Basophil percentage Comment . [facility] Comment on above: No monoclonality det ected.Performed at: - [address] [id number] Director: Master Vee PhD, Phone: [phone] Interpretation of serum or p lasma protein pattern by immunofixation (narrative resultOrdered By: Anant Juarez on 01-20-2023 Protein Fractions Immunofixation Manuel [Interp] See comment [facility] Comment on above: Result: Not Observed No Panel InformationOrdered By: Anant Juarez on 01-20-2023 Addendum Document Comment . [facility] Comment on above: Protein electrophore sis scan will follow via computer,mail, or topper press operator delivery. Serum [id number] measu rement by electrophoresisOrdered By: Anant Juarez on 01-20-2023 Alpha 1 globulin Elph [Mass/Vol] 0.3 g/dL 0.0-0.4 [facility] Alpha 1 globulin Elph [Mass/Vol] 0.9 g/dL 0.4-1.0 [facility] Serum globulin measurement ( mass/volume)Ordered By: Anant Juarez on 01-20-2023 Globulin (S) [Mass/Vol] 3.0 g/dL 2.2-3.9 [facility] Serum or plasma IgA measurem ent (mass/volume)Ordered By: Anant Juarez on 01-20-2023 IgA [Mass/Vol] 158 mg/dL 64-422 [facility] Serum or plasma IgG measurem ent (mass/volume)Ordered By: Anant Juarez on 01-20-2023 IgG [Mass/Vol] 847 mg/dL 586-1602 [facility] Serum or plasma IgM measurem ent (mass/volume)Ordered By: Anant Juarez 01-20-2023 IgM [Mass/Vol] 48 mg/dL 26-217 [facility] Serum or plasma beta globuli n measurement by electrophoresis (mass/volume)Ordered By: Anant Juarez 01-20-2023 Beta globulin Elph [Mass/Vol] 1.0 g/dL 0.7-1.3 [facility] Serum or plasma gamma globul in measurement by electrophoresis (mass/volume)Ordered By: Anant Juarez on 01-20-2023 Gamma globulin Elph [Mass/Vol] 0.7 g/dL 0.4-1.8 [facility] Serum or plasma immunoelectr ophoresis interpretation (nominal result)Ordered By: Anant Juarez on 01-20-2023 Interpretation IEP [Interp] Comment . [facility] Comment on above: No monoclonality det ected. Thin prep Papanicolaou smear with manual screeningOrdered By: Anant Juarez on 01-20-2023 Thin prep Papanicolaou smear with manual screening 1.2 0.7-1.7 [facility] Total protein bloodOrdered B y: Anant Juarez on 01-20-2023 Protein [Mass/Vol] 6.4 g/dL 6.0-8.5 [facility] Laboratory - CoagulationOrde red By: Alexandra Hagen on 01-16-2023 INR Coag (Bld) [Relative time] 2.2 {INR} [facility] Comment on above: Critical Value > 4.0 Whole blood prothrombin time Ordered By: Alexandra Hagen on 01-16-2023 PT Coag (Bld) [Time] 24.2 s 11.7-14.9 [facility] Absolute lymphocyte countOrd ered By: Lynn Horn on 12-28-2022 Lymphocytes Auto (Unsp spec) [#/Vol] 1.57 10*3/uL 0.83-4.51 [facility] Basophil percentageOrdered B y: Lynn Horn on 12-28-2022 Basophils/100 WBC (Bld) 0.6 % 0-1 [facility] Chloride [Moles/Vol] 108 mmol/L 98-107 [facility] Eosinophils/100 WBC (Bld) 3.0 % 0-5 [facility] Glucose [Mass/Vol] 117 mg/dL 74-106 [facility] Comment on above: Fasting Glucose resu lt from 100 to 125 mg/dL suggests IMPAIRED HOMEOSTASIS per A.D.A. criteria. Neutrophils (Bld) [#/Vol] 5.3 10*3/uL 2.0-7.7 [facility] Neutrophils/100 WBC (Bld) 66.8 % 47-70 [facility] Potassium [Moles/Vol] 3.9 mmol/L 3.5-5.1 [facility] Sodium [Moles/Vol] 138 mmol/L 136-145 [facility] WBC (Bld) [#/Vol] 7.9 10*3/uL 4.4-11.0 [facility] Blood erythrocytes count (nu mber/volume)Ordered By: Lynn Horn on 12-28-2022 RBC (Bld) [#/Vol] 4.32 10*6/uL 4.2-5.4 [facility] Blood hemoglobin measurement (mass/volume)Ordered By: Lynn Horn on 12-28-2022 Hemoglobin (Bld) [Mass/Vol] 12.8 g/dL 12.0-15.0 [facility] Blood lymphocytes/100 leukoc ytesOrdered By: Lynn Horn on 12-28-2022 Lymphocytes/100 WBC (Bld) 19.8 % 19-41 [facility] Blood monocytes/100 leukocyt esOrdered By: Lynn Horn on 12-28-2022 Monocytes/100 WBC (Bld) 9.5 % 0-10 [facility] Blood platelet mean volumeOr dered By: Lynn Horn on 12-28-2022 Platelet mean volume (Bld) [Entitic vol] 10.6 fL 6.2-12.0 [facility] Determination of erythrocyte mean corpuscular volume (MCV)Ordered By: Lynn Horn on 12-28-2022 MCV (RBC) [Entitic vol] 91.0 fL 81-99 [facility] Hematocrit Auto (Bld) [Volum e fraction]Ordered By: Lynn Horn on 12-28-2022 Hematocrit (Bld) [Volume fraction] 39.3 % 37-47 [facility] INR in Blood by Coagulation assayOrdered By: Lynn Horn on 12-28-2022 INR Coag (Bld) [Relative time] 2.1 {INR} [facility] Laboratory - Chemistry and C hemistry - challengeOrdered By: Lynn Horn on 12-28-2022 CO2 [Moles/Vol] 27.0 mmol/L 21.0-32.0 [facility] Urea nitrogen/Creatinine [Mass ratio] 15.7 mg/mg 10-20 [facility] Laboratory - CoagulationOrde red By: Lynn Horn on 12-28-2022 PT Coag (PPP) [Time] 23.8 s 11.7-14.9 [facility] Laboratory - Hematology and Cell countsOrdered By: Lynn Horn on 12-28-2022 Erythrocyte distribution width (RBC) [Entitic vol] 43.0 fL 35.1-43.9 [facility] Erythrocyte distribution width (RBC) [Ratio] 12.9 % 11.6-14.6 [facility] Immature granulocytes/100 WBC (Bld) 0.300 % 0.0-0.9 [facility] Comment on above: IG% - Immature Granu locytes (promyelocytes, myelocytes and metamyelocytes) > 1% indicates that a LEFT SHIFT is Present. MCH (RBC) [Entitic mass] 29.6 pg 27.0-32.0 [facility] Nucleated RBC/100 WBC (Bld) [Ratio] 0 % 0-5 [facility] MCHC Auto (RBC) [Mass/Vol]Or dered By: Lynn Horn on 12-28-2022 MCHC (RBC) [Mass/Vol] 32.6 g/dL 32-36 [facility] No Panel InformationOrdered By: Lynn Horn on 12-28-2022 Estimated Creatinine Clearance Calc 36.84 ml/min [facility] Estimated GFR (MDRD) Amer 77 mL/min >60 [facility] Comment on above: GFR Calc Estimated GFR (MDRD) Non-Af Amer 64 mL/min >60 [facility] Comment on above: Non- GFR Calc Platelets bldOrdered By: Lois Horn on 12-28-2022 Platelets (Bld) [#/Vol] 272 10*3/uL 150-450 [facility] Serum or plasma calcium viktoria urement (mass/volume)Ordered By: Lynn Horn on 12-28-2022 Calcium [Mass/Vol] 8.3 mg/dL 8.5-10.1 [facility] Serum or plasma creatinine m easurement (mass/volume)Ordered By: Lynn Horn on 12-28-2022 Creatinine [Mass/Vol] 0.89 mg/dL 0.55-1.02 [facility] Comment on above: The validity of the calculated GFR & GFRAA in patients over 70 years has not been determined. Clinical correlation is essential. Serum or plasma urea nitroge n measurement (mass/volume)Ordered By: Lynn Horn on 12-28-2022 Urea nitrogen [Mass/Vol] 14 mg/dL 7-18 [facility] Thin prep Papanicolaou smear with manual screeningOrdered By: Lynn Horn on 12-28-2022 Thin prep Papanicolaou smear with manual screening 3 5-15 [facility] Laboratory - CoagulationOrde red By: Lali Pimentel on 12-27-2022 aPTT Coag (Bld) [Time] 48.2 s 24.1-36.2 [facility] No Panel InformationOrdered By: Lali Pimentel on 12-27-2022 Troponin I High Sensitivity 10 pg/mL 3.0-54.0 [facility] Comment on above: Please Note: New Evon t Units and Gender Specific Reference Ranges. For more information see Policy Stat Procedure [place] High Sensitivity Troponin (TNIH) and attachments. Laboratory - CoagulationOrde red By: Alexandra Hagen on 12-19-2022 INR Coag (Bld) [Relative time] 2.8 {INR} [facility] Comment on above: Critical Value > 4.0 Whole blood prothrombin time Ordered By: Alexandra Hagen on 12-19-2022 PT Coag (Bld) [Time] 29.7 s 11.7-14.9 [facility] Absolute lymphocyte countOrd ered By: Alexandra Hagen on 12-09-2022 Lymphocytes Auto (Unsp spec) [#/Vol] 1.65 10*3/uL 0.83-4.51 [facility] Basophil percentageOrdered B y: Alexandra Hagen on 12-09-2022 Basophils/100 WBC (Bld) 0.4 % 0-1 [facility] Chloride [Moles/Vol] 107 mmol/L 98-107 [facility] Eosinophils/100 WBC (Bld) 3.6 % 0-5 [facility] Glucose [Mass/Vol] 125 mg/dL 74-106 [facility] Comment on above: Fasting Glucose resu lt from 100 to 125 mg/dL suggests IMPAIRED HOMEOSTASIS per A.D.A. criteria. Neutrophils (Bld) [#/Vol] 4.3 10*3/uL 2.0-7.7 [facility] Neutrophils/100 WBC (Bld) 61.6 % 47-70 [facility] Potassium [Moles/Vol] 4.8 mmol/L 3.5-5.1 [facility] Sodium [Moles/Vol] 138 mmol/L 136-145 [facility] WBC (Bld) [#/Vol] 7.0 10*3/uL 4.4-11.0 [facility] Blood erythrocytes count (nu mber/volume)Ordered By: Alexandra Hagen on 12-09-2022 RBC (Bld) [#/Vol] 4.30 10*6/uL 4.2-5.4 [facility] Blood hemoglobin measurement (mass/volume)Ordered By: Alexandra Hagen on 12-09-2022 Hemoglobin (Bld) [Mass/Vol] 13.1 g/dL 12.0-15.0 [facility] Blood lymphocytes/100 leukoc ytesOrdered By: Alexandra Hagen on 12-09-2022 Lymphocytes/100 WBC (Bld) 23.7 % 19-41 [facility] Blood monocytes/100 leukocyt esOrdered By: Alexandra Hagen on 12-09-2022 Monocytes/100 WBC (Bld) 10.4 % 0-10 [facility] Blood platelet mean volumeOr dered By: Alexandra Hagen on 12-09-2022 Platelet mean volume (Bld) [Entitic vol] 10.7 fL 6.2-12.0 [facility] Determination of erythrocyte mean corpuscular volume (MCV)Ordered By: Alexandra Hagen on 12-09-2022 MCV (RBC) [Entitic vol] 92.3 fL 81-99 [facility] Hematocrit Auto (Bld) [Volum e fraction]Ordered By: Alexandra Hagen on 12-09-2022 Hematocrit (Bld) [Volume fraction] 39.7 % 37-47 [facility] Laboratory - Chemistry and C hemistry - challengeOrdered By: Alexandra Hagen on 12-09-2022 CO2 [Moles/Vol] 26.0 mmol/L 21.0-32.0 [facility] Urea nitrogen/Creatinine [Mass ratio] 14.4 mg/mg 10-20 [facility] Laboratory - Hematology and Cell countsOrdered By: Alexandra Hagen on 12-09-2022 Erythrocyte distribution width (RBC) [Entitic vol] 44.0 fL 35.1-43.9 [facility] Erythrocyte distribution width (RBC) [Ratio] 13.1 % 11.6-14.6 [facility] Immature granulocytes/100 WBC (Bld) 0.300 % 0.0-0.9 [facility] [facility] Comment on above: IG% - Immature Granu locytes (promyelocytes, myelocytes and metamyelocytes) > 1% indicates that a LEFT SHIFT is Present. MCH (RBC) [Entitic mass] 30.5 pg 27.0-32.0 [facility] Nucleated RBC/100 WBC (Bld) [Ratio] 0 % 0-5 [facility] MCHC Auto (RBC) [Mass/Vol]Or dered By: Alexandra Hagen on 12-09-2022 MCHC (RBC) [Mass/Vol] 33.0 g/dL 32-36 [facility] No Panel InformationOrdered By: Alexandra Hagen on 12-09-2022 Estimated GFR (MDRD) Amer 60 mL/min >60 [facility] Comment on above: GFR Calc Estimated GFR (MDRD) Non-Af Amer 49 mL/min >60 [facility] Comment on above: Non- GFR Calc Platelets bldOrdered By: Alexandra Hagen on 12-09-2022 Platelets (Bld) [#/Vol] 293 10*3/uL 150-450 [facility] Serum or plasma calcium viktoria urement (mass/volume)Ordered By: Alexandra Hagen on 12-09-2022 Calcium [Mass/Vol] 8.7 mg/dL 8.5-10.1 [facility] Serum or plasma creatinine m easurement (mass/volume)Ordered By: Alexandra Hagen on 12-09-2022 Creatinine [Mass/Vol] 1.11 mg/dL 0.55-1.02 [facility] Comment on above: The validity of the calculated GFR & GFRAA in patients over 70 years has not been determined. Clinical correlation is essential. Serum or plasma urea nitroge n measurement (mass/volume)Ordered By: Alexandra Hagen on 12-09-2022 Urea nitrogen [Mass/Vol] 16 mg/dL 7-18 [facility] Thin prep Papanicolaou smear with manual screeningOrdered By: Alexandra Hagen on 12-09-2022 Thin prep Papanicolaou smear with manual screening 5 5-15 [facility] Whole blood hemoglobin A1c/t otal hemoglobin ratio (mass fraction)Ordered By: Alexandra Hagen on 12-09-2022 HbA1c (Bld) [Mass fraction] 6.7 % 3.8-5.6 [facility] Comment on above: Normal < 5.7 % Predi abetic 5.7 - 6.4 % Diabetic >or= 6.5 % Please note range changes. Basophil percentageOrdered B y: Alexandra Hagen on 11-20-2022 Bilirubin [Mass/Vol] 0.50 mg/dL 0.20-1.00 [facility] Comment on above: For patients on eltr ombopag therapy, use of Dimension [place] TBIL is not recommended. Chloride [Moles/Vol] 105 mmol/L 98-107 [facility] Cholesterol [Mass/Vol] 167 mg/dL <200 [facility] Comment on above: <200 mg/dL Desirable 200-240 mg/dL Borderline >240 mg/dL High Risk Glucose [Mass/Vol] 153 mg/dL 74-106 [facility] Comment on above: Fasting Glucose resu lt greater than or equal to 126 mg/dL suggests DIABETES MELLITUS per A.D.A. criteria. Potassium [Moles/Vol] 4.2 mmol/L 3.5-5.1 [facility] Protein [Mass/Vol] 6.7 g/dL 6.4-8.2 [facility] Sodium [Moles/Vol] 138 mmol/L 136-145 [facility] Triglyceride [Mass/Vol] 120 mg/dL <199 [facility] Comment on above: The drugs N-Acetylcy steine and Metamizole may falsely depress this assay.Serum Triglycerides Reference Interval Normal <150 mg/dL Borderline high 150 - 199 mg/dL High 200 - 499 mg/dL Very High > or = 500 mg/dL WBC (Bld) [#/Vol] 7.4 10*3/uL 4.4-11.0 [facility] Blood erythrocytes count (nu mber/volume)Ordered By: Alexandra Hagen on 11-20-2022 RBC (Bld) [#/Vol] 4.37 10*6/uL 4.2-5.4 [facility] Blood hemoglobin measurement (mass/volume)Ordered By: Alexandra Hagen on 11-20-2022 Hemoglobin (Bld) [Mass/Vol] 13.1 g/dL 12.0-15.0 [facility] Blood platelet mean volumeOr dered By: Alexandra Hagen on 11-20-2022 Platelet mean volume (Bld) [Entitic vol] 10.8 fL 6.2-12.0 [facility] Determination of erythrocyte mean corpuscular volume (MCV)Ordered By: Alexandra Hagen on 11-20-2022 MCV (RBC) [Entitic vol] 91.5 fL 81-99 [facility] Hematocrit Auto (Bld) [Volum e fraction]Ordered By: Alexandra Hagen on 11-20-2022 Hematocrit (Bld) [Volume fraction] 40.0 % 37-47 [facility] INR in Blood by Coagulation assayOrdered By: Alexandra Hagen on 11-20-2022 INR Coag (Bld) [Relative time] 2.0 {INR} [facility] Laboratory - Chemistry and C hemistry - challengeOrdered By: Alexandra Hagen on 11-20-2022 ALP [Catalytic activity/Vol] 72 U/L 45-117 [facility] ALT [Catalytic activity/Vol] 13 U/L 13-56 [facility] CO2 [Moles/Vol] 30.0 mmol/L 21.0-32.0 [facility] Globulin (S) [Mass/Vol] 3.6 g/dL 2.2-4.2 [facility] Urea nitrogen/Creatinine [Mass ratio] 12.8 mg/mg 10-20 [facility] Laboratory - CoagulationOrde red By: Alexandra Hagen on 11-20-2022 PT Coag (PPP) [Time] 22.6 s 11.7-14.9 [facility] Laboratory - Hematology and Cell countsOrdered By: Alexandra Hagen on 11-20-2022 Erythrocyte distribution width (RBC) [Entitic vol] 43.4 fL 35.1-43.9 [facility] Erythrocyte distribution width (RBC) [Ratio] 12.9 % 11.6-14.6 [facility] MCH (RBC) [Entitic mass] 30.0 pg 27.0-32.0 [facility] MCHC Auto (RBC) [Mass/Vol]Or dered By: Alexandra Hagen on 11-20-2022 MCHC (RBC) [Mass/Vol] 32.8 g/dL 32-36 [facility] No Panel InformationOrdered By: Alexandra Hagen on 11-20-2022 Estimated GFR (MDRD) Amer 61 mL/min >60 [facility] Comment on above: GFR Calc Estimated GFR (MDRD) Non-Af Amer 50 mL/min >60 [facility] Comment on above: Non- GFR Calc Platelets bldOrdered By: Alexandra Hagen on 11-20-2022 Platelets (Bld) [#/Vol] 310 10*3/uL 150-450 [facility] Serum or plasma albumin viktoria urement (mass/volume)Ordered By: Alexandra Hagen on 11-20-2022 Albumin [Mass/Vol] 3.1 g/dL 3.2-5.0 [facility] Serum or plasma albumin/glob ulin mass ratioOrdered By: Alexandra Hagen on 11-20-2022 Albumin/Globulin [Mass ratio] 0.9 {ratio} 0.9-2.4 [facility] Serum or plasma calcium viktoria urement (mass/volume)Ordered By: Alexandra Hagen on 11-20-2022 Calcium [Mass/Vol] 8.6 mg/dL 8.5-10.1 [facility] Serum or plasma cholesterol in HDL measurement (mass/volume)Ordered By: Alexadnra Hagen on 11-20-2022 Cholesterol in HDL [Mass/Vol] 55 mg/dL >40 [facility] Comment on above: The drugs N-Acetylcy steine and Metamizole may falsely depress this assay. Reference Range HDL <40 mg/dL Low HDL Cholesterol HDL >or= 60 mg/dL High HDL Cholesterol Serum or plasma cholesterol in VLDL measurement (mass/volume)Ordered By: Alexandra Hagen on 11-20-2022 Cholesterol in VLDL [Mass/Vol] 24 mg/dL 5-40 [facility] Serum or plasma creatinine m easurement (mass/volume)Ordered By: Alexandra Hagen on 11-20-2022 Creatinine [Mass/Vol] 1.09 mg/dL 0.55-1.02 [facility] Comment on above: The validity of the calculated GFR & GFRAA in patients over 70 years has not been determined. Clinical correlation is essential. Serum or plasma low density lipoprotein (LDL) cholesterol measurement (mass/volume)Ordered By: Alexandra Hagen on 11-20-2022 Cholesterol in LDL [Mass/Vol] 88 mg/dL 0-130 [facility] Serum or plasma urea nitroge n measurement (mass/volume)Ordered By: Alexandra Hagen on 11-20-2022 Urea nitrogen [Mass/Vol] 14 mg/dL 7-18 [facility] Thin prep Papanicolaou smear with manual screeningOrdered By: Alexandra Hagen on 11-20-2022 Thin prep Papanicolaou smear with manual screening 15 U/L 15-37 [facility] Thin prep Papanicolaou smear with manual screening 3 5-15 [facility] Absolute lymphocyte countOrd ered By: Mo Corea on 11-18-2022 Lymphocytes Auto (Unsp spec) [#/Vol] 1.95 10*3/uL 0.83-4.51 [facility] Basophil percentageOrdered B y: Mo Corea on 11-18-2022 Basophil percentage 0-5 SEEN /hpf 0-5 [facility] Basophils/100 WBC (Bld) 0.4 % 0-1 [facility] Bilirubin [Mass/Vol] 0.40 mg/dL 0.20-1.00 [facility] Comment on above: For patients on eltr ombopag therapy, use of Dimension [place] TBIL is not recommended. Chloride [Moles/Vol] 108 mmol/L 98-107 [facility] Eosinophils/100 WBC (Bld) 3.4 % 0-5 [facility] Glucose [Mass/Vol] 126 mg/dL 74-106 [facility] Comment on above: Fasting Glucose resu lt greater than or equal to 126 mg/dL suggests DIABETES MELLITUS per A.D.A. criteria. Neutrophils (Bld) [#/Vol] 4.4 10*3/uL 2.0-7.7 [facility] Neutrophils/100 WBC (Bld) 59.9 % 47-70 [facility] Potassium [Moles/Vol] 3.9 mmol/L 3.5-5.1 [facility] Protein [Mass/Vol] 6.9 g/dL 6.4-8.2 [facility] Sodium [Moles/Vol] 140 mmol/L 136-145 [facility] WBC (Bld) [#/Vol] 7.3 10*3/uL 4.4-11.0 [facility] Bilirubin Test strip Ql (U)O rdered By: Mo Corea on 11-18-2022 Bilirubin Ql (U) Negative Negative [facility] Blood erythrocytes count (nu mber/volume)Ordered By: Mo Corea on 11-18-2022 RBC (Bld) [#/Vol] 4.63 10*6/uL 4.2-5.4 [facility] Blood hemoglobin measurement (mass/volume)Ordered By: Mo Corea on 11-18-2022 Hemoglobin (Bld) [Mass/Vol] 13.9 g/dL 12.0-15.0 [facility] Blood lymphocytes/100 leukoc ytesOrdered By: Mo Corea on 11-18-2022 Lymphocytes/100 WBC (Bld) 26.8 % 19-41 [facility] Blood monocytes/100 leukocyt esOrdered By: Mo Corea on 11-18-2022 Monocytes/100 WBC (Bld) 9.2 % 0-10 [facility] Blood platelet mean volumeOr dered By: Mo Corea on 11-18-2022 Platelet mean volume (Bld) [Entitic vol] 10.5 fL 6.2-12.0 [facility] Determination of erythrocyte mean corpuscular volume (MCV)Ordered By: Mo Corea on 11-18-2022 MCV (RBC) [Entitic vol] 92.4 fL 81-99 [facility] Hematocrit Auto (Bld) [Volum e fraction]Ordered By: Mo Corea on 11-18-2022 Hematocrit (Bld) [Volume fraction] 42.8 % 37-47 [facility] INR in Blood by Coagulation assayOrdered By: Mo Corea on 11-18-2022 INR Coag (Bld) [Relative time] 2.0 {INR} [facility] Ketones Test strip Ql (U)Ord ered By: Mo Corea on 11-18-2022 Ketones Ql (U) Negative Negative [facility] Laboratory - Chemistry and C hemistry - challengeOrdered By: Mo Corea on 11-18-2022 ALP [Catalytic activity/Vol] 76 U/L 45-117 [facility] ALT [Catalytic activity/Vol] 13 U/L 13-56 [facility] CO2 [Moles/Vol] 30.0 mmol/L 21.0-32.0 [facility] Globulin (S) [Mass/Vol] 3.6 g/dL 2.2-4.2 [facility] Urea nitrogen/Creatinine [Mass ratio] 13.6 mg/mg 10-20 [facility] - CoagulationOrde red By: Mo Corea on 11-18-2022 aPTT Coag (Bld) [Time] 48.1 s 24.1-36.2 [facility] PT Coag (PPP) [Time] 22.7 s 11.7-14.9 [facility] Laboratory - Hematology and Cell countsOrdered By: Mo Corea on 11-18-2022 Erythrocyte distribution width (RBC) [Entitic vol] 44.2 fL 35.1-43.9 [facility] Erythrocyte distribution width (RBC) [Ratio] 13.1 % 11.6-14.6 [facility] Immature granulocytes/100 WBC (Bld) 0.300 % 0.0-0.9 [facility] Comment on above: IG% - Immature Granu locytes (promyelocytes, myelocytes and metamyelocytes) > 1% indicates that a LEFT SHIFT is Present. MCH (RBC) [Entitic mass] 30.0 pg 27.0-32.0 [facility] Nucleated RBC/100 WBC (Bld) [Ratio] 0 % 0-5 [facility] MCHC Auto (RBC) [Mass/Vol]Or dered By: Mo Corea on 11-18-2022 MCHC (RBC) [Mass/Vol] 32.5 g/dL 32-36 [facility] Mucus LM Ql (Urine sed)Order ed By: Mo Corea on 11-18-2022 Mucus Ql (Urine sed) 0 SEEN /hpf [facility] Nitrite Test strip Ql (U)Ord ered By: Mo Corea on 11-18-2022 Nitrite Ql (U) Negative Negative [facility] No Panel InformationOrdered By: Mo Corea on 11-18-2022 Estimated Creatinine Clearance Calc 31.83 ml/min [facility] Estimated GFR (MDRD) Amer 65 mL/min >60 [facility] Comment on above: GFR Calc Estimated GFR (MDRD) Non-Af Amer 54 mL/min >60 [facility] Comment on above: Non- GFR Calc Platelets bldOrdered By: Rebecca Corea on 11-18-2022 Platelets (Bld) [#/Vol] 289 10*3/uL 150-450 [facility] Protein Test strip Ql (U)Ord ered By: Mo Corea on 11-18-2022 Protein Ql (U) 15 mg/dl Negative [facility] Serum or plasma albumin viktoria urement (mass/volume)Ordered By: Mo Corea on 11-18-2022 Albumin [Mass/Vol] 3.3 g/dL 3.2-5.0 [facility] Serum or plasma albumin/glob ulin mass ratioOrdered By: Mo Corea on 11-18-2022 Albumin/Globulin [Mass ratio] 0.9 {ratio} 0.9-2.4 [facility] Serum or plasma calcium viktoria urement (mass/volume)Ordered By: Mo Corea on 11-18-2022 Calcium [Mass/Vol] 8.7 mg/dL 8.5-10.1 [facility] Serum or plasma creatinine m easurement (mass/volume)Ordered By: Mo Corea on 11-18-2022 Creatinine [Mass/Vol] 1.03 mg/dL 0.55-1.02 [facility] Comment on above: The validity of the calculated GFR & GFRAA in patients over 70 years has not been determined. Clinical correlation is essential. Serum or plasma urea nitroge n measurement (mass/volume)Ordered By: Mo Corea on 11-18-2022 Urea nitrogen [Mass/Vol] 14 mg/dL 7-18 [facility] Squamous epithelial cells de tection in urine sediment by light microscopyOrdered By: Mo Corea on 11-18-2022 Epithelial cells.squamous LM Ql (Urine sed) 0-5 SEEN /hpf 5-10 [facility] Thin prep Papanicolaou smear with manual screeningOrdered By: Mo Corea on 11-18-2022 Thin prep Papanicolaou smear with manual screening 15 U/L 15-37 [facility] Thin prep Papanicolaou smear with manual screening 2 5-15 [facility] Urine blood detectionOrdered By: Mo Corea on 08-21-2023 RBC Ql (U) Negative Negative [facility] RBC Ql (U) 0 SEEN /hpf 0-5 [facility] Urine clarityOrdered By: Rebecca Corea on 11-18-2022 Clarity (U) Sl. Cloudy Clear [facility] Urine color determinationOrd ered By: Mo Corea on 11-18-2022 Color (U) Yellow Yellow [facility] Urine glucose detectionOrder ed By: Mo Corea on 11-18-2022 Glucose Ql (U) Normal mg/dl Normal [facility] Urine leukocyte esterase det ection by dipstickOrdered By: Mo Corea on 11-18-2022 Leukocyte esterase Test strip Ql (U) 25 /ul Negative [facility] Urine pHOrdered By: Mo amado on 11-18-2022 pH (U) 7.0 [pH] 5.0 - 8.0 [facility] Urine sediment bacteria coun t by microscopy (number/high power field)Ordered By: Mo Corea on 11-18-2022 Bacteria LM.HPF (Urine sed) [#/Area] 0 /[HPF] None Seen [facility] Urine specific gravity measu rementOrdered By: Mo Corea on 11-18-2022 Specific gravity (U) [Rel density] 1.010 1.002-1.030 [facility] Urobilinogen Auto test strip Ql (U)Ordered By: Mo Corea on 11-18-2022 Urobilinogen Ql (U) Normal mg/dl Normal [facility] Absolute lymphocyte countOrd ered By: Sae Carballo on 11-15-2022 Lymphocytes Auto (Unsp spec) [#/Vol] 2.03 10*3/uL 0.83-4.51 [facility] Basophil percentageOrdered B y: Sae Carballo on 11-15-2022 Basophils/100 WBC (Bld) 0.5 % 0-1 [facility] Chloride [Moles/Vol] 107 mmol/L 98-107 [facility] Cholesterol [Mass/Vol] 164 mg/dL <200 [facility] Comment on above: <200 mg/dL Desirable 200-240 mg/dL Borderline >240 mg/dL High Risk Eosinophils/100 WBC (Bld) 3.5 % 0-5 [facility] Glucose [Mass/Vol] 124 mg/dL 74-106 [facility] Comment on above: Fasting Glucose resu lt from 100 to 125 mg/dL suggests IMPAIRED HOMEOSTASIS per A.D.A. criteria. Neutrophils (Bld) [#/Vol] 4.7 10*3/uL 2.0-7.7 [facility] Neutrophils/100 WBC (Bld) 60.3 % 47-70 [facility] Potassium [Moles/Vol] 4.1 mmol/L 3.5-5.1 [facility] Sodium [Moles/Vol] 139 mmol/L 136-145 [facility] Triglyceride [Mass/Vol] 133 mg/dL <199 [facility] Comment on above: The drugs N-Acetylcy steine and Metamizole may falsely depress this assay.Serum Triglycerides Reference Interval Normal <150 mg/dL Borderline high 150 - 199 mg/dL High 200 - 499 mg/dL Very High > or = 500 mg/dL WBC (Bld) [#/Vol] 7.8 10*3/uL 4.4-11.0 [facility] Blood erythrocytes count (nu mber/volume)Ordered By: Sae Carballo on 11-15-2022 RBC (Bld) [#/Vol] 4.32 10*6/uL 4.2-5.4 [facility] Blood hemoglobin measurement (mass/volume)Ordered By: Sae Carballo on 11-15-2022 Hemoglobin (Bld) [Mass/Vol] 12.9 g/dL 12.0-15.0 [facility] Blood lymphocytes/100 leukoc ytesOrdered By: Sae Carballo on 11-15-2022 Lymphocytes/100 WBC (Bld) 26.2 % 19-41 [facility] Blood monocytes/100 leukocyt esOrdered By: Sae Carballo on 11-15-2022 Monocytes/100 WBC (Bld) 9.4 % 0-10 [facility] Blood platelet mean volumeOr dered By: Sae Carballo on 11-15-2022 Platelet mean volume (Bld) [Entitic vol] 10.6 fL 6.2-12.0 [facility] Determination of erythrocyte mean corpuscular volume (MCV)Ordered By: Sae Carballo on 11-15-2022 MCV (RBC) [Entitic vol] 91.7 fL 81-99 [facility] Hematocrit Auto (Bld) [Volum e fraction]Ordered By: Sae Carballo on 11-15-2022 Hematocrit (Bld) [Volume fraction] 39.6 % 37-47 [facility] INR in Blood by Coagulation assayOrdered By: Sae Carballo on 11-15-2022 INR Coag (Bld) [Relative time] 2.0 {INR} [facility] - Chemistry and C hemistry - challengeOrdered By: Sae Carballo on 11-15-2022 CO2 [Moles/Vol] 25.0 mmol/L 21.0-32.0 [facility] Urea nitrogen/Creatinine [Mass ratio] 15.8 mg/mg 10-20 [facility] - CoagulationOrde red By: Sae Carballo on 11-15-2022 PT Coag (PPP) [Time] 23.0 s 11.7-14.9 [facility] Laboratory - Hematology and Cell countsOrdered By: Sae Carballo on 11-15-2022 Erythrocyte distribution width (RBC) [Entitic vol] 43.4 fL 35.1-43.9 [facility] Erythrocyte distribution width (RBC) [Ratio] 12.9 % 11.6-14.6 [facility] Immature granulocytes/100 WBC (Bld) 0.100 % 0.0-0.9 [facility] Comment on above: IG% - Immature Granu locytes (promyelocytes, myelocytes and metamyelocytes) > 1% indicates that a LEFT SHIFT is Present. MCH (RBC) [Entitic mass] 29.9 pg 27.0-32.0 [facility] Nucleated RBC/100 WBC (Bld) [Ratio] 0 % 0-5 [facility] MCHC Auto (RBC) [Mass/Vol]Or dered By: Sae Carballo on 11-15-2022 MCHC (RBC) [Mass/Vol] 32.6 g/dL 32-36 [facility] No Panel InformationOrdered By: Sae Carballo on 11-15-2022 Estimated Creatinine Clearance Calc 37.26 ml/min [facility] Estimated GFR (MDRD) Amer 78 mL/min >60 [facility] Comment on above: GFR Calc Estimated GFR (MDRD) Non-Af Amer 64 mL/min >60 [facility] Comment on above: Non- GFR Calc Platelets bldOrdered By: Ramos Carballo on 11-15-2022 Platelets (Bld) [#/Vol] 278 10*3/uL 150-450 [facility] Serum or plasma calcium viktoria urement (mass/volume)Ordered By: Sae Carballo on 11-15-2022 Calcium [Mass/Vol] 8.5 mg/dL 8.5-10.1 [facility] Serum or plasma cholesterol in HDL measurement (mass/volume)Ordered By: Sae Carballo on 11-15-2022 Cholesterol in HDL [Mass/Vol] 49 mg/dL >40 [facility] Comment on above: The drugs N-Acetylcy steine and Metamizole may falsely depress this assay. Reference Range HDL <40 mg/dL Low HDL Cholesterol HDL >or= 60 mg/dL High HDL Cholesterol Serum or plasma cholesterol in VLDL measurement (mass/volume)Ordered By: Sae Carballo on 11-15-2022 Cholesterol in VLDL [Mass/Vol] 27 mg/dL 5-40 [facility] Serum or plasma creatinine m easurement (mass/volume)Ordered By: Sae Carballo on 11-15-2022 Creatinine [Mass/Vol] 0.88 mg/dL 0.55-1.02 [facility] Comment on above: The validity of the calculated GFR & GFRAA in patients over 70 years has not been determined. Clinical correlation is essential. Serum or plasma low density lipoprotein (LDL) cholesterol measurement (mass/volume)Ordered By: Sae Carballo on 11-15-2022 Cholesterol in LDL [Mass/Vol] 88 mg/dL 0-130 [facility] Serum or plasma urea nitroge n measurement (mass/volume)Ordered By: Sae Carballo on 11-15-2022 Urea nitrogen [Mass/Vol] 14 mg/dL 7-18 [facility] Thin prep Papanicolaou smear with manual screeningOrdered By: Sae Carballo on 11-15-2022 Thin prep Papanicolaou smear with manual screening 7 -15 [facility] Absolute lymphocyte countOrd ered By: Neri Mitchell on 11-14-2022 Lymphocytes Auto (Unsp spec) [#/Vol] 2.35 10*3/uL 0.83-4.51 [facility] Basophil percentageOrdered B y: Neri Mitchell on 11-14-2022 Basophils/100 WBC (Bld) 0.6 % 0-1 [facility] Chloride [Moles/Vol] 104 mmol/L 98-107 [facility] Eosinophils/100 WBC (Bld) 2.4 % 0-5 [facility] Glucose [Mass/Vol] 135 mg/dL 74-106 [facility] Comment on above: Fasting Glucose resu lt greater than or equal to 126 mg/dL suggests DIABETES MELLITUS per A.D.A. criteria. Neutrophils (Bld) [#/Vol] 6.0 10*3/uL 2.0-7.7 [facility] Neutrophils/100 WBC (Bld) 64.0 % 47-70 [facility] Potassium [Moles/Vol] 4.0 mmol/L 3.5-5.1 [facility] Sodium [Moles/Vol] 138 mmol/L 136-145 [facility] WBC (Bld) [#/Vol] 9.4 10*3/uL 4.4-11.0 [facility] Blood erythrocytes count (nu mber/volume)Ordered By: Neri Mitchell on 11-14-2022 RBC (Bld) [#/Vol] 4.79 10*6/uL 4.2-5.4 [facility] Blood hemoglobin measurement (mass/volume)Ordered By: Neri Mitchell on 11-14-2022 Hemoglobin (Bld) [Mass/Vol] 14.3 g/dL 12.0-15.0 [facility] Blood lymphocytes/100 leukoc ytesOrdered By: Neri Mitchell on 11-14-2022 Lymphocytes/100 WBC (Bld) 24.9 % 19-41 [facility] Blood monocytes/100 leukocyt esOrdered By: Neri Mitchell on 11-14-2022 Monocytes/100 WBC (Bld) 7.8 % 0-10 [facility] Blood platelet mean volumeOr dered By: Neri Mitchell on 11-14-2022 Platelet mean volume (Bld) [Entitic vol] 10.6 fL 6.2-12.0 [facility] Determination of erythrocyte mean corpuscular volume (MCV)Ordered By: Neri Mitchell on 11-14-2022 MCV (RBC) [Entitic vol] 93.5 fL 81-99 [facility] Glucose Glucometer (BldC) [M ass/Vol]Ordered By: Neri Mitchell on 11-14-2022 Glucose [Mass/Vol] 136 mg/dL 74-106 [facility] Comment on above: MANAGEMENT OF PATIEN T CARE PER NURSING PROTOCOL Hematocrit Auto (Bld) [Volum e fraction]Ordered By: Neri Mitchell on 11-14-2022 Hematocrit (Bld) [Volume fraction] 44.8 % 37-47 [facility] INR in Blood by Coagulation assayOrdered By: Neri Mitchell on 11-14-2022 INR Coag (Bld) [Relative time] 1.8 {INR} [facility] - Chemistry and C hemistry - challengeOrdered By: Neri Mitchell on 11-14-2022 CO2 [Moles/Vol] 28.0 mmol/L 21.0-32.0 [facility] Urea nitrogen/Creatinine [Mass ratio] 12.3 mg/mg 10-20 [facility] - CoagulationOrde red By: Neri Mitchell on 11-14-2022 aPTT Coag (Bld) [Time] 43.3 s 24.1-36.2 [facility] PT Coag (PPP) [Time] 21.3 s 11.7-14.9 [facility] - Hematology and Cell countsOrdered By: Neri Mitchell on 11-14-2022 Erythrocyte distribution width (RBC) [Entitic vol] 44.7 fL 35.1-43.9 [facility] Erythrocyte distribution width (RBC) [Ratio] 13.0 % 11.6-14.6 [facility] Immature granulocytes/100 WBC (Bld) 0.300 % 0.0-0.9 [facility] Comment on above: IG% - Immature Granu locytes (promyelocytes, myelocytes and metamyelocytes) > 1% indicates that a LEFT SHIFT is Present. MCH (RBC) [Entitic mass] 29.9 pg 27.0-32.0 [facility] Nucleated RBC/100 WBC (Bld) [Ratio] 0 % 0-5 [facility] MCHC Auto (RBC) [Mass/Vol]Or dered By: Neri Mitchell on 11-14-2022 MCHC (RBC) [Mass/Vol] 31.9 g/dL 32-36 [facility] No Panel InformationOrdered By: Neri Mitchell on 11-14-2022 Estimated Creatinine Clearance Calc 28.76 ml/min [facility] Estimated GFR (MDRD) Amer 58 mL/min >60 [facility] Comment on above: GFR Calc Estimated GFR (MDRD) Non-Af Amer 48 mL/min >60 [facility] Comment on above: Non- GFR Calc Troponin I High Sensitivity 10 pg/mL 3.0-54.0 [facility] Comment on above: Please Note: New Evon t Units and Gender Specific Reference Ranges. For more information see Policy Stat Procedure [place] High Sensitivity Troponin (TNIH) and attachments. Platelets bldOrdered By: Prasad Mitchell on 11-14-2022 Platelets (Bld) [#/Vol] 313 10*3/uL 150-450 [facility] Serum or plasma calcium viktoria urement (mass/volume)Ordered By: Neri Mitchell on 11-14-2022 Calcium [Mass/Vol] 9.0 mg/dL 8.5-10.1 [facility] Serum or plasma creatinine m easurement (mass/volume)Ordered By: Neri Mitchell on 11-14-2022 Creatinine [Mass/Vol] 1.14 mg/dL 0.55-1.02 [facility] Comment on above: The validity of the calculated GFR & GFRAA in patients over 70 years has not been determined. Clinical correlation is essential. Serum or plasma urea nitroge n measurement (mass/volume)Ordered By: Neri Mitchell on 11-14-2022 Urea nitrogen [Mass/Vol] 14 mg/dL 7-18 [facility] Thin prep Papanicolaou smear with manual screeningOrdered By: Neri Mitchell on 11-14-2022 Thin prep Papanicolaou smear with manual screening 6 5-15 [facility] INR in Blood by Coagulation assayOrdered By: Dr. Juarez on 09-18-2022 INR Coag (Bld) [Relative time] 1.8 {INR} [facility] Laboratory - CoagulationOrde red By: Dr. Juarez on 09-18-2022 PT Coag (PPP) [Time] 20.9 s 11.7-14.9 [facility] No Panel InformationOrdered By: Anant Juarez on 09-18-2022 Free Lambda Light Chains, Quant 15.7 mg/L 5.7-26.3 [facility] Whole Blood Vitamin B1 Level 111.8 nmol/L 66.5-200.0 [facility] Comment on above: Performed at: [email or web address] [address] [id number] Director: Master Vee PhD, Phone: [phone] at: [facility] [id number] Director: Brandon Wells MD, Phone: [phone] Serum immunoglobulin kappa l ight chains/immunoglobulin lambda light chains mass ratioOrdered By: Anant Juarez on 09-18-2022 Immunoglobulin light chains.kappa/Immunoglobul in light chains.lambda (S) [Mass ratio] 1.74 0.26-1.65 [facility] Serum or plasma folate measu rement (mass/volume)Ordered By: Dr. Juarez on 09-18-2022 Folate [Mass/Vol] 51.90 ng/mL 3.1-55.4 [facility] Comment on above: Slight Hemolysis, Re sult may be falsely increased. Serum or plasma immunoglobul in kappa light chains measurement (mass/volume)Ordered By: Anant Juarez on 09-18-2022 Immunoglobulin light chains.kappa [Mass/Vol] 27.3 mg/L 3.3-19.4 [facility] Culture, urineOrdered By: Slim Doran on 09-17-2022 Bacteria identified Cx Nom (U) Streptococcus agalactiae (B) [facility] INR in Blood by Coagulation assayOrdered By: Dr. Doran on 09-13-2022 INR Coag (Bld) [Relative time] 1.5 {INR} [facility] - CoagulationOrde red By: Dr. Doran on 09-13-2022 PT Coag (PPP) [Time] 18.1 s 11.7-14.9 [facility] Absolute lymphocyte countOrd ered By: Dr. Barcenas on 09-08-2022 Lymphocytes Auto (Unsp spec) [#/Vol] 2.60 10*3/uL 0.83-4.51 [facility] Basophil percentageOrdered B y: Dr. Barcenas on 09-08-2022 Basophil percentage 0 SEEN /hpf 0-5 [facility] Basophils/100 WBC (Bld) 0.4 % 0-1 [facility] Bilirubin [Mass/Vol] 0.30 mg/dL 0.20-1.00 [facility] Comment on above: For patients on eltr ombopag therapy, use of Dimension [place] TBIL is not recommended. Chloride [Moles/Vol] 103 mmol/L 98-107 [facility] Eosinophils/100 WBC (Bld) 2.3 % 0-5 [facility] Glucose [Mass/Vol] 78 mg/dL 74-106 [facility] Neutrophils (Bld) [#/Vol] 5.2 10*3/uL 2.0-7.7 [facility] Neutrophils/100 WBC (Bld) 57.4 % 47-70 [facility] Potassium [Moles/Vol] 3.8 mmol/L 3.5-5.1 [facility] Protein [Mass/Vol] 6.9 g/dL 6.4-8.2 [facility] Sodium [Moles/Vol] 139 mmol/L 136-145 [facility] WBC (Bld) [#/Vol] 9.1 10*3/uL 4.4-11.0 [facility] Bilirubin Test strip Ql (U)O rdered By: Dr. Barcenas on 09-08-2022 Bilirubin Ql (U) Negative Negative [facility] Blood erythrocytes count (nu mber/volume)Ordered By: Dr. Barcenas on 09-08-2022 RBC (Bld) [#/Vol] 4.48 10*6/uL 4.2-5.4 [facility] Blood hemoglobin measurement (mass/volume)Ordered By: Dr. Barcenas on 09-08-2022 Hemoglobin (Bld) [Mass/Vol] 13.4 g/dL 12.0-15.0 [facility] Blood lymphocytes/100 leukoc ytesOrdered By: Dr. Barcenas on 09-08-2022 Lymphocytes/100 WBC (Bld) 28.5 % 19-41 [facility] Blood monocytes/100 leukocyt esOrdered By: Dr. Barcenas on 09-08-2022 Monocytes/100 WBC (Bld) 11.1 % 0-10 [facility] Blood platelet mean volumeOr dered By: Dr. Barcenas on 09-08-2022 Platelet mean volume (Bld) [Entitic vol] 10.7 fL 6.2-12.0 [facility] Determination of erythrocyte mean corpuscular volume (MCV)Ordered By: Dr. Barcenas on 09-08-2022 MCV (RBC) [Entitic vol] 92.4 fL 81-99 [facility] Hematocrit Auto (Bld) [Volum e fraction]Ordered By: Dr. Barcenas on 09-08-2022 Hematocrit (Bld) [Volume fraction] 41.4 % 37-47 [facility] INR in Blood by Coagulation assayOrdered By: Dr. Barcenas on 09-08-2022 INR Coag (Bld) [Relative time] 1.0 {INR} [facility] Ketones Test strip Ql (U)Ord ered By: Dr. Barcenas on 09-08-2022 Ketones Ql (U) Negative Negative [facility] Laboratory - Chemistry and C hemistry - challengeOrdered By: Dr. Barcenas on 09-08-2022 ALP [Catalytic activity/Vol] 71 U/L 45-117 [facility] ALT [Catalytic activity/Vol] 9 U/L 13-56 [facility] CO2 [Moles/Vol] 30.0 mmol/L 21.0-32.0 [facility] Globulin (S) [Mass/Vol] 3.7 g/dL 2.2-4.2 [facility] Urea nitrogen/Creatinine [Mass ratio] 17.1 mg/mg 10-20 [facility] - CoagulationOrde red By: Dr. Barcenas on 09-08-2022 PT Coag (PPP) [Time] 13.6 s 11.7-14.9 [facility] Laboratory - Hematology and Cell countsOrdered By: Dr. Barcenas on 09-08-2022 Erythrocyte distribution width (RBC) [Entitic vol] 44.8 fL 35.1-43.9 [facility] Erythrocyte distribution width (RBC) [Ratio] 13.2 % 11.6-14.6 [facility] Immature granulocytes/100 WBC (Bld) 0.300 % 0.0-0.9 [facility] Comment on above: IG% - Immature Granu locytes (promyelocytes, myelocytes and metamyelocytes) > 1% indicates that a LEFT SHIFT is Present. MCH (RBC) [Entitic mass] 29.9 pg 27.0-32.0 [facility] Nucleated RBC/100 WBC (Bld) [Ratio] 0 % 0-5 [facility] MCHC Auto (RBC) [Mass/Vol]Or dered By: Dr. Barcenas on 09-08-2022 MCHC (RBC) [Mass/Vol] 32.4 g/dL 32-36 [facility] Mucus LM Ql (Urine sed)Order ed By: Dr. Barcenas on 09-08-2022 Mucus Ql (Urine sed) 0 SEEN /hpf [facility] Nitrite Test strip Ql (U)Ord ered By: Dr. Barcenas on 09-08-2022 Nitrite Ql (U) Negative Negative [facility] No Panel InformationOrdered By: Dr. Barcenas on 09-08-2022 Estimated Creatinine Clearance Calc 31.23 ml/min [facility] Estimated GFR (MDRD) Amer 64 mL/min >60 [facility] Comment on above: GFR Calc Estimated GFR (MDRD) Non-Af Amer 53 mL/min >60 [facility] Comment on above: Non- GFR Calc Troponin I High Sensitivity 86 pg/mL 3.0-54.0 [facility] Comment on above: Please Note: New Evon t Units and Gender Specific Reference Ranges. For more information see Policy Stat Procedure [place] High Sensitivity Troponin (TNIH) and attachments. Platelets bldOrdered By: Dr. Barcenas on 09-08-2022 Platelets (Bld) [#/Vol] 294 10*3/uL 150-450 [facility] Protein Test strip Ql (U)Ord ered By: Dr. Barcenas on 09-08-2022 Protein Ql (U) Negative Negative [facility] Serum or plasma albumin viktoria urement (mass/volume)Ordered By: Dr. Barcenas on 09-08-2022 Albumin [Mass/Vol] 3.2 g/dL 3.2-5.0 [facility] Serum or plasma albumin/glob ulin mass ratioOrdered By: Dr. Barcenas on 09-08-2022 Albumin/Globulin [Mass ratio] 0.9 {ratio} 0.9-2.4 [facility] Serum or plasma calcium viktoria urement (mass/volume)Ordered By: Dr. Barcenas on 09-08-2022 Calcium [Mass/Vol] 8.8 mg/dL 8.5-10.1 [facility] Serum or plasma creatinine m easurement (mass/volume)Ordered By: Dr. Barcenas on 09-08-2022 Creatinine [Mass/Vol] 1.05 mg/dL 0.55-1.02 [facility] Comment on above: The validity of the calculated GFR & GFRAA in patients over 70 years has not been determined. Clinical correlation is essential. Serum or plasma urea nitroge n measurement (mass/volume)Ordered By: Dr. Barcenas on 09-08-2022 Urea nitrogen [Mass/Vol] 18 mg/dL 7-18 [facility] Squamous epithelial cells de tection in urine sediment by light microscopyOrdered By: Dr. Barcenas on 09-08-2022 Epithelial cells.squamous LM Ql (Urine sed) 0-5 SEEN /hpf 5-10 [facility] Thin prep Papanicolaou smear with manual screeningOrdered By: Dr. Barcenas on 09-08-2022 Thin prep Papanicolaou smear with manual screening 9 U/L 15-37 [facility] Thin prep Papanicolaou smear with manual screening 6 5-15 [facility] Urine blood detectionOrdered By: Dr. Barcenas on 09-08-2022 RBC Ql (U) Negative Negative [facility] RBC Ql (U) 0 SEEN /hpf 0-5 [facility] Urine clarityOrdered By: Dr. Barcenas on 09-08-2022 Clarity (U) Clear Clear [facility] Urine color determinationOrd ered By: Dr. Barcenas on 09-08-2022 Color (U) Yellow Yellow [facility] Urine glucose detectionOrder ed By: Dr. Barcenas on 09-08-2022 Glucose Ql (U) Normal mg/dl Normal [facility] Urine leukocyte esterase det ection by dipstickOrdered By: Dr. Barcenas on 09-08-2022 Leukocyte esterase Test strip Ql (U) Negative Negative [facility] Urine pHOrdered By: Dr. Moody delgado on 09-08-2022 pH (U) 6.5 [pH] 5.0 - 8.0 [facility] Urine sediment bacteria coun t by microscopy (number/high power field)Ordered By: Dr. Barcenas on 09-08-2022 Bacteria LM.HPF (Urine sed) [#/Area] 0 /[HPF] None Seen [facility] Urine specific gravity measu rementOrdered By: Dr. Barcenas on 09-08-2022 Specific gravity (U) [Rel density] 1.010 1.002-1.030 [facility] Urobilinogen Auto test strip Ql (U)Ordered By: Dr. Barcenas on 09-08-2022 Urobilinogen Ql (U) Normal mg/dl Normal [facility] Absolute lymphocyte countOrd ered By: Dr. Doran on 09-05-2022 Lymphocytes Auto (Unsp spec) [#/Vol] 1.27 10*3/uL 0.83-4.51 [facility] Basophil percentageOrdered B y: Dr. Doran on 09-05-2022 Basophils/100 WBC (Bld) 0.4 % 0-1 [facility] Chloride [Moles/Vol] 106 mmol/L 98-107 [facility] Eosinophils/100 WBC (Bld) 1.0 % 0-5 [facility] Glucose [Mass/Vol] 202 mg/dL 74-106 [facility] Comment on above: Glucose result great er than or equal to 200 mg/dLsuggests DIABETES MELLITUS per A.D.A. criteria. Neutrophils (Bld) [#/Vol] 8.3 10*3/uL 2.0-7.7 [facility] Neutrophils/100 WBC (Bld) 79.7 % 47-70 [facility] Potassium [Moles/Vol] 3.7 mmol/L 3.5-5.1 [facility] Sodium [Moles/Vol] 139 mmol/L 136-145 [facility] WBC (Bld) [#/Vol] 10.4 10*3/uL 4.4-11.0 [facility] Blood erythrocytes count (nu mber/volume)Ordered By: Dr. Doran on 09-05-2022 RBC (Bld) [#/Vol] 4.72 10*6/uL 4.2-5.4 [facility] Blood hemoglobin measurement (mass/volume)Ordered By: Dr. Doran on 09-05-2022 Hemoglobin (Bld) [Mass/Vol] 14.1 g/dL 12.0-15.0 [facility] Blood lymphocytes/100 leukoc ytesOrdered By: Dr. Doran on 09-05-2022 Lymphocytes/100 WBC (Bld) 12.3 % 19-41 [facility] Blood monocytes/100 leukocyt esOrdered By: Dr. Doran on 09-05-2022 Monocytes/100 WBC (Bld) 6.3 % 0-10 [facility] Blood platelet mean volumeOr dered By: Dr. Doran on 09-05-2022 Platelet mean volume (Bld) [Entitic vol] 11.2 fL 6.2-12.0 [facility] Determination of erythrocyte mean corpuscular volume (MCV)Ordered By: Dr. Doran on 09-05-2022 MCV (RBC) [Entitic vol] 93.9 fL 81-99 [facility] Hematocrit Auto (Bld) [Volum e fraction]Ordered By: Dr. Doran on 09-05-2022 Hematocrit (Bld) [Volume fraction] 44.3 % 37-47 [facility] INR in Blood by Coagulation assayOrdered By: Dr. Doran on 09-05-2022 INR Coag (Bld) [Relative time] 1.1 {INR} [facility] Laboratory - Chemistry and C hemistry - challengeOrdered By: Dr. Doran on 09-05-2022 CO2 [Moles/Vol] 24.0 mmol/L 21.0-32.0 [facility] Urea nitrogen/Creatinine [Mass ratio] 18.3 mg/mg 10-20 [facility] - CoagulationOrde red By: Dr. Doran on 09-05-2022 PT Coag (PPP) [Time] 13.8 s 11.7-14.9 [facility] Laboratory - Hematology and Cell countsOrdered By: Dr. Doran on 09-05-2022 Erythrocyte distribution width (RBC) [Entitic vol] 45.5 fL 35.1-43.9 [facility] Erythrocyte distribution width (RBC) [Ratio] 13.2 % 11.6-14.6 [facility] Immature granulocytes/100 WBC (Bld) 0.300 % 0.0-0.9 [facility] Comment on above: IG% - Immature Granu locytes (promyelocytes, myelocytes and metamyelocytes) > 1% indicates that a LEFT SHIFT is Present. MCH (RBC) [Entitic mass] 29.9 pg 27.0-32.0 [facility] Nucleated RBC/100 WBC (Bld) [Ratio] 0 % 0-5 [facility] MCHC Auto (RBC) [Mass/Vol]Or dered By: Dr. Doran on 09-05-2022 MCHC (RBC) [Mass/Vol] 31.8 g/dL 32-36 [facility] No Panel InformationOrdered By: Dr. Doran on 09-05-2022 Estimated GFR (MDRD) Amer 61 mL/min >60 [facility] Comment on above: GFR Calc Estimated GFR (MDRD) Non-Af Amer 50 mL/min >60 [facility] Comment on above: Non- GFR Calc Thyroid Stimulating Hormone (TSH) 2.84 uIU/mL 0.358-3.74 [facility] Platelets bldOrdered By: Dr. Doran on 09-05-2022 Platelets (Bld) [#/Vol] 311 10*3/uL 150-450 [facility] Serum or plasma calcium viktoria urement (mass/volume)Ordered By: Dr. Doran on 09-05-2022 Calcium [Mass/Vol] 8.8 mg/dL 8.5-10.1 [facility] Serum or plasma creatinine m easurement (mass/volume)Ordered By: Dr. Doran on 09-05-2022 Creatinine [Mass/Vol] 1.09 mg/dL 0.55-1.02 [facility] Comment on above: The validity of the calculated GFR & GFRAA in patients over 70 years has not been determined. Clinical correlation is essential. Serum or plasma urea nitroge n measurement (mass/volume)Ordered By: Dr. Doran on 09-05-2022 Urea nitrogen [Mass/Vol] 20 mg/dL 7-18 [facility] Thin prep Papanicolaou smear with manual screeningOrdered By: Dr. Doran on 09-05-2022 Thin prep Papanicolaou smear with manual screening 9 5-15 [facility] Absolute lymphocyte countOrd ered By: Dr. Doran on 08-08-2022 Lymphocytes Auto (Unsp spec) [#/Vol] 1.97 10*3/uL 0.83-4.51 [facility] Basophil percentageOrdered B y: Dr. Doran on 08-08-2022 Basophils/100 WBC (Bld) 0.5 % 0-1 [facility] Chloride [Moles/Vol] 105 mmol/L 98-107 [facility] Eosinophils/100 WBC (Bld) 3.2 % 0-5 [facility] Glucose [Mass/Vol] 147 mg/dL 74-106 [facility] Comment on above: Fasting Glucose resu lt greater than or equal to 126 mg/dL suggests DIABETES MELLITUS per A.D.A. criteria. Neutrophils (Bld) [#/Vol] 4.6 10*3/uL 2.0-7.7 [facility] Neutrophils/100 WBC (Bld) 60.9 % 47-70 [facility] Potassium [Moles/Vol] 4.9 mmol/L 3.5-5.1 [facility] Sodium [Moles/Vol] 140 mmol/L 136-145 [facility] WBC (Bld) [#/Vol] 7.5 10*3/uL 4.4-11.0 [facility] Blood erythrocytes count (nu mber/volume)Ordered By: Dr. Doran on 08-08-2022 RBC (Bld) [#/Vol] 4.73 10*6/uL 4.2-5.4 [facility] Blood hemoglobin measurement (mass/volume)Ordered By: Dr. Doran on 08-08-2022 Hemoglobin (Bld) [Mass/Vol] 14.0 g/dL 12.0-15.0 [facility] Blood lymphocytes/100 leukoc ytesOrdered By: Dr. Doran on 08-08-2022 Lymphocytes/100 WBC (Bld) 26.2 % 19-41 [facility] Blood monocytes/100 leukocyt esOrdered By: Dr. Doran on 08-08-2022 Monocytes/100 WBC (Bld) 8.8 % 0-10 [facility] Blood platelet mean volumeOr dered By: Dr. Doran on 08-08-2022 Platelet mean volume (Bld) [Entitic vol] 10.9 fL 6.2-12.0 [facility] Determination of erythrocyte mean corpuscular volume (MCV)Ordered By: Dr. Doran on 08-08-2022 MCV (RBC) [Entitic vol] 94.1 fL 81-99 [facility] Hematocrit Auto (Bld) [Volum e fraction]Ordered By: Dr. Doran on 08-08-2022 Hematocrit (Bld) [Volume fraction] 44.5 % 37-47 [facility] - Chemistry and C hemistry - challengeOrdered By: Dr. Doran on 08-08-2022 CO2 [Moles/Vol] 29.0 mmol/L 21.0-32.0 [facility] Cobalamin (Vitamin B12) [Mass/Vol] 853 pg/mL 211-911 [facility] Urea nitrogen/Creatinine [Mass ratio] 18.3 mg/mg 10-20 [facility] - Hematology and Cell countsOrdered By: Dr. Doran on 08-08-2022 Erythrocyte distribution width (RBC) [Entitic vol] 45.5 fL 35.1-43.9 [facility] Erythrocyte distribution width (RBC) [Ratio] 13.2 % 11.6-14.6 [facility] Immature granulocytes/100 WBC (Bld) 0.400 % 0.0-0.9 [facility] Comment on above: IG% - Immature Granu locytes (promyelocytes, myelocytes and metamyelocytes) > 1% indicates that a LEFT SHIFT is Present. MCH (RBC) [Entitic mass] 29.6 pg 27.0-32.0 [facility] Nucleated RBC/100 WBC (Bld) [Ratio] 0 % 0-5 [facility] MCHC Auto (RBC) [Mass/Vol]Or dered By: Dr. Doran on 08-08-2022 MCHC (RBC) [Mass/Vol] 31.5 g/dL 32-36 [facility] No Panel InformationOrdered By: Dr. Doran on 08-08-2022 Estimated GFR (MDRD) Amer 57 mL/min >60 [facility] Comment on above: GFR Calc Estimated GFR (MDRD) Non-Af Amer 47 mL/min >60 [facility] Comment on above: Non- GFR Calc Vitamin D 25-Hydroxy 35.5 ng/mL [facility] Comment on above: Vitamin D 25(OH) Sta tus Range Deficiency <20 ng/mL (50nmol/L) Insufficiency 20 - 30 ng/mL (50 - 75 nmol/L) Sufficiency 30 - 100 ng/mL (75 - 250 nmol/L) Toxicity >100 ng/mL (>250 nmol/L) Platelets bldOrdered By: Dr. Doran on 08-08-2022 Platelets (Bld) [#/Vol] 365 10*3/uL 150-450 [facility] Serum or plasma calcium viktoria urement (mass/volume)Ordered By: Dr. Doran on 08-08-2022 Calcium [Mass/Vol] 9.2 mg/dL 8.5-10.1 [facility] Serum or plasma creatinine m easurement (mass/volume)Ordered By: Dr. Doran on 08-08-2022 Creatinine [Mass/Vol] 1.15 mg/dL 0.55-1.02 [facility] Comment on above: The validity of the calculated GFR & GFRAA in patients over 70 years has not been determined. Clinical correlation is essential. Serum or plasma ferritin rich surement (mass/volume)Ordered By: Dr. Doran on 08-08-2022 Ferritin [Mass/Vol] 83 ng/mL 8-252 [facility] Serum or plasma urea nitroge n measurement (mass/volume)Ordered By: Dr. Doran on 08-08-2022 Urea nitrogen [Mass/Vol] 21 mg/dL 7-18 [facility] Thin prep Papanicolaou smear with manual screeningOrdered By: Dr. Doran on 08-08-2022 Thin prep Papanicolaou smear with manual screening 6 5-15 [facility] Absolute lymphocyte countOrd ered By: Dr. Doran on 06-26-2022 Lymphocytes Auto (Unsp spec) [#/Vol] 2.42 10*3/uL 0.83-4.51 [facility] Basophil percentageOrdered B y: Dr. Doran on 06-26-2022 Basophils/100 WBC (Bld) 0.5 % 0-1 [facility] Bilirubin [Mass/Vol] 0.40 mg/dL 0.20-1.00 [facility] Comment on above: For patients on eltr ombopag therapy, use of Dimension [place] TBIL is not recommended. Chloride [Moles/Vol] 106 mmol/L 98-107 [facility] Cholesterol [Mass/Vol] 163 mg/dL <200 [facility] Comment on above: <200 mg/dL Desirable 200-240 mg/dL Borderline >240 mg/dL High Risk Eosinophils/100 WBC (Bld) 4.2 % 0-5 [facility] Glucose [Mass/Vol] 142 mg/dL 74-106 [facility] Comment on above: Fasting Glucose resu lt greater than or equal to 126 mg/dL suggests DIABETES MELLITUS per A.D.A. criteria. Neutrophils (Bld) [#/Vol] 3.9 10*3/uL 2.0-7.7 [facility] Neutrophils/100 WBC (Bld) 53.1 % 47-70 [facility] Potassium [Moles/Vol] 4.3 mmol/L 3.5-5.1 [facility] Protein [Mass/Vol] 6.9 g/dL 6.4-8.2 [facility] Sodium [Moles/Vol] 139 mmol/L 136-145 [facility] Triglyceride [Mass/Vol] 178 mg/dL <199 [facility] Comment on above: The drugs N-Acetylcy steine and Metamizole may falsely depress this assay.Serum Triglycerides Reference Interval Normal <150 mg/dL Borderline high 150 - 199 mg/dL High 200 - 499 mg/dL Very High > or = 500 mg/dL WBC (Bld) [#/Vol] 7.4 10*3/uL 4.4-11.0 [facility] Blood erythrocytes count (nu mber/volume)Ordered By: Dr. Doran on 06-26-2022 RBC (Bld) [#/Vol] 4.51 10*6/uL 4.2-5.4 [facility] Blood hemoglobin measurement (mass/volume)Ordered By: Dr. Doran on 06-26-2022 Hemoglobin (Bld) [Mass/Vol] 13.5 g/dL 12.0-15.0 [facility] Blood lymphocytes/100 leukoc ytesOrdered By: Dr. Doran on 06-26-2022 Lymphocytes/100 WBC (Bld) 32.9 % 19-41 [facility] Blood monocytes/100 leukocyt esOrdered By: Dr. Doran on 06-26-2022 Monocytes/100 WBC (Bld) 9.0 % 0-10 [facility] Blood platelet mean volumeOr dered By: Dr. Doran on 06-26-2022 Platelet mean volume (Bld) [Entitic vol] 10.2 fL 6.2-12.0 [facility] Determination of erythrocyte mean corpuscular volume (MCV)Ordered By: Dr. Doran on 06-26-2022 MCV (RBC) [Entitic vol] 92.5 fL 81-99 [facility] Hematocrit Auto (Bld) [Volum e fraction]Ordered By: Dr. Doran on 06-26-2022 Hematocrit (Bld) [Volume fraction] 41.7 % 37-47 [facility] Laboratory - Chemistry and C hemistry - challengeOrdered By: Dr. Doran on 06-26-2022 ALP [Catalytic activity/Vol] 69 U/L 45-117 [facility] ALT [Catalytic activity/Vol] 13 U/L 13-56 [facility] CO2 [Moles/Vol] 29.0 mmol/L 21.0-32.0 [facility] Globulin (S) [Mass/Vol] 3.7 g/dL 2.2-4.2 [facility] Urea nitrogen/Creatinine [Mass ratio] 18.0 mg/mg 10-20 [facility] - Hematology and Cell countsOrdered By: Dr. Doran on 06-26-2022 Erythrocyte distribution width (RBC) [Entitic vol] 43.9 fL 35.1-43.9 [facility] Erythrocyte distribution width (RBC) [Ratio] 12.9 % 11.6-14.6 [facility] Immature granulocytes/100 WBC (Bld) 0.300 % 0.0-0.9 [facility] Comment on above: IG% - Immature Granu locytes (promyelocytes, myelocytes and metamyelocytes) > 1% indicates that a LEFT SHIFT is Present. MCH (RBC) [Entitic mass] 29.9 pg 27.0-32.0 [facility] Nucleated RBC/100 WBC (Bld) [Ratio] 0 % 0-5 [facility] MCHC Auto (RBC) [Mass/Vol]Or dered By: Dr. Doran on 06-26-2022 MCHC (RBC) [Mass/Vol] 32.4 g/dL 32-36 [facility] No Panel InformationOrdered By: Dr. Doran on 06-26-2022 Estimated GFR (MDRD) Amer 60 mL/min >60 [facility] Comment on above: GFR Calc Estimated GFR (MDRD) Non-Af Amer 49 mL/min >60 [facility] Comment on above: Non- GFR Calc Platelets bldOrdered By: Dr. Doran on 06-26-2022 Platelets (Bld) [#/Vol] 314 10*3/uL 150-450 [facility] Serum or plasma albumin viktoria urement (mass/volume)Ordered By: Dr. Doran on 06-26-2022 Albumin [Mass/Vol] 3.2 g/dL 3.2-5.0 [facility] Serum or plasma albumin/glob ulin mass ratioOrdered By: Dr. Doran on 06-26-2022 Albumin/Globulin [Mass ratio] 0.9 {ratio} 0.9-2.4 [facility] Serum or plasma calcium viktoria urement (mass/volume)Ordered By: Dr. Doran on 06-26-2022 Calcium [Mass/Vol] 8.8 mg/dL 8.5-10.1 [facility] Serum or plasma cholesterol in HDL measurement (mass/volume)Ordered By: Dr. Doran on 06-26-2022 Cholesterol in HDL [Mass/Vol] 47 mg/dL >40 [facility] Comment on above: The drugs N-Acetylcy steine and Metamizole may falsely depress this assay. Reference Range HDL <40 mg/dL Low HDL Cholesterol HDL >or= 60 mg/dL High HDL Cholesterol Serum or plasma cholesterol in VLDL measurement (mass/volume)Ordered By: Dr. Doran on 06-26-2022 Cholesterol in VLDL [Mass/Vol] 36 mg/dL 5-40 [facility] Serum or plasma creatinine m easurement (mass/volume)Ordered By: Dr. Doran on 06-26-2022 Creatinine [Mass/Vol] 1.11 mg/dL 0.55-1.02 [facility] Comment on above: The validity of the calculated GFR & GFRAA in patients over 70 years has not been determined. Clinical correlation is essential. Serum or plasma low density lipoprotein (LDL) cholesterol measurement (mass/volume)Ordered By: Dr. Doran on 06-26-2022 Cholesterol in LDL [Mass/Vol] 80 mg/dL 0-130 [facility] Serum or plasma urea nitroge n measurement (mass/volume)Ordered By: Dr. Doran on 06-26-2022 Urea nitrogen [Mass/Vol] 20 mg/dL 7-18 [facility] Thin prep Papanicolaou smear with manual screeningOrdered By: Dr. Doran on 06-26-2022 Thin prep Papanicolaou smear with manual screening 15 U/L 15-37 [facility] Thin prep Papanicolaou smear with manual screening 4 5-15 [facility] Absolute lymphocyte countOrd ered By: Reese Shankar on 02-11-2022 Lymphocytes Auto (Unsp spec) [#/Vol] 1.50 10*3/uL 0.83-4.51 [facility] Basophil percentageOrdered B y: Reese Shankar on 02-11-2022 Basophils/100 WBC (Bld) 0.4 % 0-1 [facility] Chloride [Moles/Vol] 102 mmol/L 98-107 [facility] Eosinophils/100 WBC (Bld) 1.7 % 0-5 [facility] Glucose [Mass/Vol] 153 mg/dL 74-106 [facility] Comment on above: Fasting Glucose resu lt greater than or equal to 126 mg/dL suggests DIABETES MELLITUS per A.D.A. criteria. Neutrophils (Bld) [#/Vol] 10.0 10*3/uL 2.0-7.7 [facility] Neutrophils/100 WBC (Bld) 79.1 % 47-70 [facility] Potassium [Moles/Vol] 3.9 mmol/L 3.5-5.1 [facility] Sodium [Moles/Vol] 138 mmol/L 136-145 [facility] WBC (Bld) [#/Vol] 12.7 10*3/uL 4.4-11.0 [facility] Blood erythrocytes count (nu mber/volume)Ordered By: Reese Shankar on 02-11-2022 RBC (Bld) [#/Vol] 4.24 10*6/uL 4.2-5.4 [facility] Blood hemoglobin measurement (mass/volume)Ordered By: Reese Shankar on 02-11-2022 Hemoglobin (Bld) [Mass/Vol] 12.8 g/dL 12.0-15.0 [facility] Blood lymphocytes/100 leukoc ytesOrdered By: Reese Shankar on 02-11-2022 Lymphocytes/100 WBC (Bld) 11.8 % 19-41 [facility] Blood monocytes/100 leukocyt esOrdered By: Reese Shankar on 02-11-2022 Monocytes/100 WBC (Bld) 6.7 % 0-10 [facility] Blood platelet mean volumeOr dered By: Reese Shankar on 02-11-2022 Platelet mean volume (Bld) [Entitic vol] 11.0 fL 6.2-12.0 [facility] Determination of erythrocyte mean corpuscular volume (MCV)Ordered By: Reese Shankar on 02-11-2022 MCV (RBC) [Entitic vol] 91.7 fL 81-99 [facility] Hematocrit Auto (Bld) [Volum e fraction]Ordered By: Reese Shankar on 02-11-2022 Hematocrit (Bld) [Volume fraction] 38.9 % 37-47 [facility] INR in Blood by Coagulation assayOrdered By: Reese Shankar on 02-11-2022 INR Coag (Bld) [Relative time] 2.7 {INR} [facility] Laboratory - Chemistry and C hemistry - challengeOrdered By: Reese Shankar on 02-11-2022 CO2 [Moles/Vol] 26.0 mmol/L 21.0-32.0 [facility] Magnesium [Mass/Vol] 2.2 mg/dL 1.6-2.6 [facility] Urea nitrogen/Creatinine [Mass ratio] 18.5 mg/mg 10-20 [facility] Laboratory - CoagulationOrde red By: Reese Shankar on 02-11-2022 PT Coag (PPP) [Time] 28.0 s 11.7-14.9 [facility] Laboratory - Hematology and Cell countsOrdered By: Reese Shankar on 02-11-2022 Erythrocyte distribution width (RBC) [Entitic vol] 43.5 fL 35.1-43.9 [facility] Erythrocyte distribution width (RBC) [Ratio] 12.9 % 11.6-14.6 [facility] Immature granulocytes/100 WBC (Bld) 0.300 % 0.0-0.9 [facility] Comment on above: IG% - Immature Granu locytes (promyelocytes, myelocytes and metamyelocytes) > 1% indicates that a LEFT SHIFT is Present. MCH (RBC) [Entitic mass] 30.2 pg 27.0-32.0 [facility] Nucleated RBC/100 WBC (Bld) [Ratio] 0 % 0-5 [facility] MCHC Auto (RBC) [Mass/Vol]Or dered By: Reese Shankar on 02-11-2022 MCHC (RBC) [Mass/Vol] 32.9 g/dL 32-36 [facility] No Panel InformationOrdered By: Reese Shankar on 02-11-2022 Estimated Creatinine Clearance Calc 19.31 ml/min [facility] Estimated GFR (MDRD) Amer 36 mL/min >60 [facility] Comment on above: GFR Calc Estimated GFR (MDRD) Non-Af Amer 30 mL/min >60 [facility] Comment on above: Non- GFR Calc Troponin I High Sensitivity 13 pg/mL 3.0-54.0 [facility] Comment on above: Please Note: New Evon t Units and Gender Specific Reference Ranges. For more information see Policy Stat Procedure [place] High Sensitivity Troponin (TNIH) and attachments. Platelets bldOrdered By: Dnotae Shankar on 02-11-2022 Platelets (Bld) [#/Vol] 286 10*3/uL 150-450 [facility] Serum or plasma calcium viktoria urement (mass/volume)Ordered By: Reese Shankar on 02-11-2022 Calcium [Mass/Vol] 9.1 mg/dL 8.5-10.1 [facility] Serum or plasma creatinine m easurement (mass/volume)Ordered By: Reese Shankar on 02-11-2022 Creatinine [Mass/Vol] 1.73 mg/dL 0.55-1.02 [facility] Comment on above: The validity of the calculated GFR & GFRAA in patients over 70 years has not been determined. Clinical correlation is essential. Serum or plasma urea nitroge n measurement (mass/volume)Ordered By: Reese Shankar on 02-11-2022 Urea nitrogen [Mass/Vol] 32 mg/dL 7-18 [facility] Thin prep Papanicolaou smear with manual screeningOrdered By: Reese Shankar on 02-11-2022 Thin prep Papanicolaou smear with manual screening 10 5-15 [facility] CNPNon 10-14-2019 CNPN Telephone ([facility] ) EZRA GONZALEZ ([id number]) 1935 F Date Time Provider Department 10/14/19 [...] artery stent placement- 2006 [Z95*11/14/2015 Atherosclerosis of [place] coronary artery of na*11/14/2015 Asymptomatic cholelithiasis [K80.20] [...] Encounter Status:Closed by ELVER ACOSTA on 10/14/19 [facility] SUZITOUTREAJourdan 10-12-2019 CNPTOUTREA Patient Outreach ([facility]) EZRA GONZALEZ ([id number]) 1935 F Date Time Provider Department 10/12/19 SWATHI CRUZ) [facility] During your visit today, we recorded the following information about you: Swathi Cruz LPN, LEE 10/12/2019 10:48 AM Signed ED Follow Up: Patient discharged from [facility] ED on 10/11/2019 for Fall, rib [...] Visit: Transition Of Care [4074] Cmt: ED [facility] 10/11/2019 (Pt. has new pcp) Reason [...] artery stent placement- 2006 [Z95*11/14/2015 Atherosclerosis of [place] coronary artery of na*11/14/2015 Asymptomatic cholelithiasis [K80.20] [...] Status:Closed by SWATHI CRUZ LPN on 10/12/19 [facility] OBSOLETEon 10-12-2019 OBSOLETE Refill ([facility]) EZRA GONZALEZ ([id number]) 1935 F Date Time Provider Department 10/12/19 JO PEREZ [facility] During your visit today, we recorded [...] Visit date not found Patient Phone numbers: [phone] (home) Request is for script(s) to be [...] artery stent placement- 2006 [Z95*11/14/2015 Atherosclerosis of [place] coronary artery of na*11/14/2015 Asymptomatic cholelithiasis [K80.20] [...] Status:Closed by LYNN BENEDICT LPN on 11/11/19 [facility] PROGRESSon 10-12-2019 PROGRESS HNO ID: [id number] Author: Swathi Cruz LPN Service: ? Author Type: LICENSED NURSE Type: Progress Notes Filed: 10/12/2019 10:48 AM Note Text: ED Follow Up: Patient discharged from [facility] ED on 10/11/2019 for Fall, rib fracture Outreach # 1, Contact Made. Patient was called at this time. Patient verified by name and . Patient stated she has a new PCP Dr. Sada Doran who she will follow up with. Swathi Cruz LPN 10/12/2019 10:45 AM [facility] CNPMari 10-06-2019 JAROD Telephone ([facility]) EZRA GONZALEZ ([id number]) 1935 F Date Time Provider Department 10/06/19 [...] 12/30/16 +++Patient gets lab draw at [facility] in [place] [phone]+++ PT INR Date Value Ref Range Status [...] (HCC) [I48.91] Order(s):PROTHROMBIN TIME/PT [SQPT] Order #: [id number] Prescriptions as of 10/06/2019 Sig: METOPROLOL SUCCINATE [...] artery stent placement- 2006 [Z95*11/14/2015 Atherosclerosis of [place] coronary artery of na*11/14/2015 Asymptomatic cholelithiasis [K80.20] [...] Encounter Status:Closed by BHAKTI (PHARMACIST)ESTEFANIA on 10/06/19 [facility] Bao 09-22-2019 CNPN Telephone ([facility]) LISAEZRA Alis ([id number]) 1935 F Date Time Provider Department 09/22/19 JO PEREZ [facility] During your visit today, we recorded the following information about you: Maryanne Gomez MA 09/22/2019 10:38 AM Signed Patient is aware that you are going to be leaving the practice. She states she recently moved down to [place] and wants to find a physician closer to her Is there anyone that you recommend Maryanne Gomez MA 09/22/2019 10:37 AM Jo Perez MD 09/22/2019 12:[address] barker at [facility] Alicia Park LPN 09/22/2019 1:21 [...] Fully Assessed Reason for Visit: Patient Question [2523] Cmt: [facility] in [facility] Prescriptions as of 09/22/2019 Sig: METOPROLOL [...] artery stent placement- 2006 [Z95*11/14/2015 Atherosclerosis of [place] coronary artery of na*11/14/2015 Asymptomatic cholelithiasis [K80.20] [...] Encounter Status:Closed by ALICIA PARK on 09/22/19 [facility] CNPTOUTREACHochastity 09-22-2019 [facility] Patient Outreach ([facility]) EZRA GONZALEZ ([id number]) 1935 F Date Time Provider Department 09/22/19 MARYANNE GOMEZ) [facility] During your visit today, we recorded the following information about you: Maryanne Gomez MA 09/22/2019 10:34 AM Signed HIGH RISK CHRONIC DISEASE MONITORING - [facility] Provider Action/FYI: Patient doing well Contact made with patient: Yes Hi my name is Maryanne Gomez MA and I am calling from the [facility] on behalf of your PCP. [...] like to speak with a social work sales team manager to help give you support for any [...] TABLET TAKE ONE TABLET BY MOUTH ADTII* JANTOVEN 2 MG TABLET take 1 tablet [...] artery stent placement- 2006 [Z95*11/14/2015 Atherosclerosis of [place] coronary artery of na*11/14/2015 Asymptomatic cholelithiasis [K80.20] [...] Encounter Status:Closed by MARYANNE GOMEZ on 09/22/19 [facility] PROGRESSon 09-22-2019 PROGRESS HNO ID: [id number] Author: Maryanne Gomez Service: ? Author Type: Sonography Technologist Type: Progress Notes Filed: 09/22/2019 10:34 AM Note Text: HIGH RISK CHRONIC DISEASE MONITORING - [facility] Provider Action/FYI: Patient doing well Contact made with patient: Yes Hi my name is Maryanne Gomez MA and I am calling from the [facility] on behalf of your PCP. [...] like to speak with a social work sales team manager to help give you support for any [...] Maryanne Gomez MA 09/22/2019 10:33 AM [facility] CNPTOUTREACHon 09-21-2019 [facility] Patient Outreach ([facility]) LISAEZRA Snell ([id number]) 1935 F Date Time Provider Department 09/21/19 JO PEREZ [facility] During your visit today, we recorded the following information about you: Alicia Park LPN 09/21/2019 10:43 AM Signed HIGH RISK CHRONIC DISEASE MONITORING - [facility] Provider Action/FYI: Contact made with patient: No - Left 1st message - Hi my name is Alicia Park LPN and I am calling from the [facility] on behalf of your PCP, [...] artery stent placement- 2006 [Z95*11/14/2015 Atherosclerosis of [place] coronary artery of na*11/14/2015 Asymptomatic cholelithiasis [K80.20] [...] Encounter Status:Closed by ALICIA PARK on 09/21/19 [facility] PROGRESSon 09-21-2019 PROGRESS HNO ID: [id number] Author: Alicia Bush) Vivian Service: ? Author Type: LICENSED NURSE Type: Progress Notes Filed: 09/21/2019 10:43 AM Note Text: HIGH RISK CHRONIC DISEASE MONITORING - [facility] Provider Action/FYI: Contact made with patient: No - Left 1st message - Hi my name is Alicia Park LPN and I am calling from the [facility] on behalf of your PCP, [...] Track Pt Outreach. End outreach.) Outreach ended [facility] CNPNon 09-02-2019 CNPN Telephone ([facility]) EZRA GONZALEZ ([id number]) 1935 F Date Time Provider Department 09/02/19 [...] Date: 12/30/16 +++Patient gets lab draw at [facility] in [place] [phone]+++ PT INR Date Value Ref Range Status [...] Patient will have next INR drawn at [facility] in [place] next month. Order [...] (HCC) [I48.91] Order(s):PROTHROMBIN TIME/PT [SQPT] Order #: [id number] PROTHROMBIN TIME/PT [SQPT] Order #: [id number] STANDING Prescriptions as of 09/02/2019 Sig: METOPROLOL [...] artery stent placement- 2006 [Z95*11/14/2015 Atherosclerosis of [place] coronary artery of na*11/14/2015 Asymptomatic cholelithiasis [K80.20] [...] Encounter Status:Closed by BHAKTI (PHARMACIST)ESTEFANIA on 09/03/19 [facility] CNPTOUTREACHon 08-12-2019 CNPTOUTREA Patient Outreach ([facility]) EZRA GONZALEZ ([id number]) 1935 F Date Time Provider Department 08/12/19 MARYANNE GOMEZ) [facility] During your visit today, we recorded the following information about you: Maryanne Gomez MA 08/12/2019 9:39 AM Signed HIGH RISK CHRONIC DISEASE MONITORING - [facility] Provider Action/FYI: Left 2nd message, will add patient to schedule for a month Contact made with patient: No, Left 2nd message - Hi my name is Maryanne Gomez MA and I am calling from the [facility] on behalf of your PCP, [...] artery stent placement- 2006 [Z95*11/14/2015 Atherosclerosis of [place] coronary artery of na*11/14/2015 Asymptomatic cholelithiasis [K80.20] [...] Status:Closed by MARYANNE GOMEZ on 08/12/19 [facility] PROGRESSon 08-12-2019 PROGRESS HNO ID: [id number] Author: Maryanne Gomez Service: ? Author Type: Sonography Technologist Type: Progress Notes Filed: 08/12/2019 9:39 AM Note Text: HIGH RISK CHRONIC DISEASE MONITORING - [facility] Provider Action/FYI: Left 2nd message, will add patient to schedule for a month Contact made with patient: No, Left 2nd message - Hi my name is Maryanne Gomez MA and I am calling from the [facility] on behalf of your PCP, [...] Maryanne Gomez MA 08/12/2019 9:38 AM [facility] CNPTOUTREACHon 08-11-2019 [facility] Patient Outreach ([facility]) EZRA GONZALEZ ([id number]) 1935 F Date Time Provider Department 08/11/19 MARYANNE GOMEZ) [facility] During your visit today, we recorded the following information about you: Maryanne Gomez MA 08/11/2019 10:02 AM Signed HIGH RISK CHRONIC DISEASE MONITORING - [facility] Provider Action/FYI: Left message, will add to schedule for tomorrow Contact made with patient: No - Left 1st message - Dc my name is Maryanne Gomez MA and I am calling from the [facility] on behalf of your PCP, [...] artery stent placement- 2006 [Z95*11/14/2015 Atherosclerosis of [place] coronary artery of na*11/14/2015 Asymptomatic cholelithiasis [K80.20] [...] Encounter Status:Closed by MARYANNE GOMEZ on 08/11/19 [facility] PROGRESSon 08-11-2019 PROGRESS HNO ID: [id number] Author: Maryanne Gomez Service: ? Author Type: Sonography Technologist Type: Progress Notes Filed: 08/11/2019 10:02 AM Note Text: HIGH RISK CHRONIC DISEASE MONITORING - [facility] Provider Action/FYI: Left message, will add to schedule for tomorrow Contact made with patient: No - Left 1st message - Hi my name is Maryanne Gomez MA and I am calling from the [facility] on behalf of your PCP, [...] ended Maryanne Gomez MA 08/11/2019 10:01 AM [facility] OBSOLETEon 08-05-2019 OBSOLETE Refill (AGCARDPOB) EZRA GONZALEZ ([id number]) 1935 F Date Time Provider Department 08/05/19 [...] artery stent placement- 2006 [Z95*11/14/2015 Atherosclerosis of [place] coronary artery of na*11/14/2015 Asymptomatic cholelithiasis [K80.20] [...] Encounter Status:Closed by LYNETTE OROURKE on 08/05/19 [facility] CNPTOUTREACHon 08-04-2019 [facility] Patient Outreach ([facility]) EZRA GONZALEZ ([id number]) 1935 F Date Time Provider Department 08/04/19 MARYANNE GOMEZ) [facility] During your visit today, we recorded the following information about you: Maryanne Gomez MA 08/04/2019 11:03 AM Signed HIGH RISK CHRONIC DISEASE MONITORING - [facility] Provider Action/FYI: Patient has no questions or concerns at this time Contact made with patient: Yes Hi my name is Maryanne Gomez MA and I am calling from the [facility] on behalf of your PCP. [...] like to speak with a social work sales team manager to help give you support for any [...] artery stent placement- 2006 [Z95*11/14/2015 Atherosclerosis of [place] coronary artery of na*11/14/2015 Asymptomatic cholelithiasis [K80.20] [...] Encounter Status:Closed by MARYANNE GOMEZ on 08/04/19 [facility] PROGRESSon 08-04-2019 PROGRESS HNO ID: [id number] Author: Maryanne Gomez Service: ? Author Type: Sonography Technologist Type: Progress Notes Filed: 08/04/2019 11:03 AM Note Text: HIGH RISK CHRONIC DISEASE MONITORING - [facility] Provider Action/FYI: Patient has no questions or concerns at this time Contact made with patient: Yes Hi my name is Maryanne Gomez MA and I am calling from the [facility] on behalf of your PCP. [...] like to speak with a social work sales team manager to help give you support for any [...] Maryanne Gomez MA 08/04/2019 11:03 AM [facility] OBSOLETEon 08-03-2019 OBSOLETE Refill ([facility]ARDPOB) LISAEZRA ([id number]) 1935 F Date Time Provider Department 08/03/19 [...] artery stent placement- 2006 [Z95*11/14/2015 Atherosclerosis of [place] coronary artery of na*11/14/2015 Asymptomatic cholelithiasis [K80.20] [...] Status:Closed by KATYA WELLS CNP on 08/03/19 [facility] CNPTOUTREACHochastity 07-28-2019 [facility] EZRA GONZALEZ ([id number]) 1935 F Date Time Provider Department 07/28/19 MARYANNE GOMEZ) [facility] During your visit today, we recorded the following information about you: Maryanne Gomez MA 07/28/2019 3:18 PM Signed HIGH RISK CHRONIC DISEASE MONITORING - [facility] Provider Action/FYI: Patient wants to know [...] and I am calling from the [facility] on behalf of your PCP. [...] like to speak with a social work sales team manager to help give you support for any [...] Please report her afib episode to her flaker operator (you can just route this chart [...] use of insulin (HCC) [E11.9] Order(s):HGB A1C [TKPVI6R] Order #: [id number] FUTURE LIPID PANEL BASIC [SQLIPB] Order #: [id number] FUTURE COMP METABOLIC PANEL [SQCMP] Order #: [id number] FUTURE ALBUMIN QUANT 24H UR [SQUALBQ] Order #: [id number] FUTURE Prescriptions as of 07/28/2019 Sig: SIMVASTATIN [...] artery stent placement- 2006 [Z95*11/14/2015 Atherosclerosis of [place] coronary artery of na*11/14/2015 Asymptomatic cholelithiasis [K80.20] [...] Encounter Status:Closed by JO PEREZ on 07/28/19 [facility] OBSOLETEon 07-28-2019 OBSOLETE Refill ([facility]) EZRA GONZALEZ ([id number]) 1935 F Date Time Provider Department 07/28/19 [...] artery stent placement- 2006 [Z95*11/14/2015 Atherosclerosis of [place] coronary artery of na*11/14/2015 Asymptomatic cholelithiasis [K80.20] [...] by ARCELIA LOCKETT CNP on 07/28/19 [facility] PROGRESSon 07-28-2019 PROGRESS HNO ID: [id number] Author: Maryanne Gomez Service: ? Author Type: Sonography Technologist Type: Progress Notes Filed: 07/28/2019 3:18 PM [...] necessary. Maryanne Gomez MA 07/28/2019 3:05 PM [facility] PROGRESS HNO ID: [id number] Author: Jo Perez Service: ? Author Type: Physician Type: Progress Notes Filed: 07/28/2019 3:18 PM Note Text: Please report her afib episode to her flaker operator (you can just route this chart [...] get labs done prior to her visit [facility] PROGRESS HNO ID: [id number] Author: Maryanne Gomez Service: ? Author Type: Sonography Technologist Type: Progress Notes Filed: 07/28/2019 3:18 PM Note Text: HIGH RISK CHRONIC DISEASE MONITORING - [facility] Provider Action/FYI: Patient wants to know [...] and I am calling from the [facility] on behalf of your PCP. [...] like to speak with a social work sales team manager to help give you support for any [...] Maryanne Gomez MA 07/28/2019 2:21 PM [facility] OBSOLETEon 07-14-2019 OBSOLETE Refill ([facility]) EZRA GONZALEZ ([id number]) 1935 F Date Time Provider Department 07/14/19 JO PEREZ [facility] During your visit today, we recorded [...] Visit date not found Patient Phone numbers: [phone] (home) Request is for script(s) to be [...] artery stent placement- 2006 [Z95*11/14/2015 Atherosclerosis of [place] coronary artery of na*11/14/2015 Asymptomatic cholelithiasis [K80.20] [...] Encounter Status:Closed by JO PEREZ on 07/14/19 [facility] OBSOLETE Refill (AGCARDPOB) EZRA GONZALEZ ([id number]) 1935 F Date Time Provider Department 07/14/19 [...] artery stent placement- 2006 [Z95*11/14/2015 Atherosclerosis of [place] coronary artery of na*11/14/2015 Asymptomatic cholelithiasis [K80.20] [...] Status:Closed by RICKEY CHAVARRIA MD on 07/14/19 [facility] 07-12-2019 CNPN Telephone ([facility]) EZRA GONZALEZ ([id number]) 1935 F Date Time Provider Department 07/12/19 [facility] During your visit today, [...] Date: 12/30/16 +++Patient gets lab draw at [facility] in [place] [phone]+++ PT INR Date Value Ref Range Status [...] (HCC) [I48.91] Order(s):PROTHROMBIN TIME/PT [SQPT] Order #: [id number] Prescriptions as of 07/12/2019 Sig: LISINOPRIL 5 [...] artery stent placement- 2006 [Z95*11/14/2015 Atherosclerosis of [place] coronary artery of na*11/14/2015 Asymptomatic cholelithiasis [K80.20] [...] Encounter Status:Closed by BHAKTI (PHARMACIST)ESTEFANIA on 07/12/19 [facility] OBSOLETEon 07-05-2019 OBSOLETE Refill ([facility]) EZRA GONZALEZ ([id number]) 1935 F Date Time Provider Department 07/05/19 [...] Patient next appointment: 07/28/2019 Patient Phone numbers: [phone] (home) Request is for script(s) to be escript to pharmacy. MYRIAM Lovelace Deary 07/13/2019 11:23 AM Signed Pharmacy called to say Ranitidine was recalled and Pepcid is on backorder. Asked what we want to do as an alternative. Spoke with Dr. Perez and she said Omeprazole 20 mg once a day. Asked the pharmacy to either call the office or the patient once Pepcid is no longer on backorder per Dr. Perez. Bernarda Deary 07/13/2019 11:23 AM Allergies As of Date: [...] artery stent placement- 2006 [Z95*11/14/2015 Atherosclerosis of [place] coronary artery of na*11/14/2015 Asymptomatic cholelithiasis [K80.20] [...] Status:Closed by PATITO WILSON CNP on 07/05/19 [facility] OBSOLETEon 07-01-2019 OBSOLETE Refill ([facility]) EZRA GONZALEZ ([id number]) 1935 F Date Time Provider Department 07/01/19 JO PEREZ [facility] During your visit today, we recorded the following information about you: Robert Diaz CMA 07/01/2019 9:20 AM Signed Patient called requesting the following refill. Pending Prescriptions Disp Refills RANITIDINE 150 MG TABLET 90 tablet 0 Sig: Take 1 tablet by mouth once daily. SHAHEEN: No Last refill: 03/18/2019 Patient last appointment: 06/10/2019 Patient next appointment: 07/28/2019 Patient Phone numbers: [phone] (home) Request is for script(s) to be [...] artery stent placement- 2006 [Z95*11/14/2015 Atherosclerosis of [place] coronary artery of na*11/14/2015 Asymptomatic cholelithiasis [K80.20] [...] Encounter Status:Closed by JO PEREZ on 07/01/19 [facility] 06-10-2019 CNPN Telephone ([facility]) EZRA GONZALEZ ([id number]) 1935 F Date Time Provider Department 06/10/19 [...] artery stent placement- 2006 [Z95*11/14/2015 Atherosclerosis of [place] coronary artery of na*11/14/2015 Asymptomatic cholelithiasis [K80.20] [...] Status:Closed by SWATHI CRUZ LPN on 06/10/19 [facility] 06-07-2019 CNPN Telephone ([employer]) EZRA GONZALEZ ([id number]) 1935 F Date Time Provider Department 06/07/19 [...] Date: 12/30/16 +++Patient gets lab draw at [facility] [place] [phone]+++ PT INR Date Value Ref Range Status [...] (HCC) [I48.91] Order(s):PROTHROMBIN TIME/PT [SQPT] Order #: [id number] Prescriptions as of 06/07/2019 Sig: COQ-10 ORAL [...] artery stent placement- 2006 [Z95*11/14/2015 Atherosclerosis of [place] coronary artery of na*11/14/2015 Asymptomatic cholelithiasis [K80.20] [...] Encounter Status:Closed by BHAKTI (PHARMACIST)ESTEFANIA on 06/07/19 [facility] 06-04-2019 CNPN Telephone ([employer]) EZRA GONZALEZ ([id number]) 1935 F Date Time Provider Department 06/04/19 [...] artery stent placement- 2006 [Z95*11/14/2015 Atherosclerosis of [place] coronary artery of na*11/14/2015 Asymptomatic cholelithiasis [K80.20] [...] Encounter Status:Closed by BHAKTI (PHARMACIST)ESTEFANIA on 06/04/19 [facility] CNOVon 05-13-2019 CNOV Office Visit (AGHWW1 ) EZRA GONZALEZ ([id number]) 1935 F Date Time Provider Department 05/13/19 4:00 PM CRUZ SANCHEZ AGHWW1 During your visit today, we recorded the following information about you: Respiration Weight Height 18/minute 82.6 kg 1.613 m Cruz Sanchez MD 05/13/2019 5:00 PM Signed HISTORY OF PRESENT ILLNESS: Ezra Gonzalez is an 83-year-old zrhwa-ygcw-ymtljyyd female who returns for follow-up right shoulder [...] associated with diabetes mellitus (HCC) - 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 - On anticoagulant therapy - On halfway drug therapy - Osteoarthritis - Peripheral venous [...] R Shoulder CARDIOVASCULAR: Peripheral venous insufficiency, h/o MT, HTN, Coronary Arteriosclerosis, A-Fib, Cardiac Ablation MSK: [...] [Z98.890] Order(s):Large Joint Arthro/Inj: R subacromial bursa [NHB553] Order #: [id number] betamethasone acetate-betamethasone sodium phosphate 12 mg injection [...] artery stent placement- 2006 [Z95*11/14/2015 Atherosclerosis of [place] coronary artery of na*11/14/2015 Asymptomatic cholelithiasis [K80.20] [...] Status:Closed by CRUZ SANCHEZ MD on 05/13/19 [facility] PROGRESSon 05-13-2019 PROGRESS HNO ID: [id number] Author: Cruz Sanchez Service: ? 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 Cruz Sanchez MD [facility] CNOVon 04-27-2019 CN Office Visit ([facility]) EZRA GONZALEZ ([id number]) 1935 F Date Time Provider Department 04/27/19 [...] coronary artery stent placement- 2006 Atherosclerosis of [place] Coronary Artery of [place] Heart Without Angina Pectoris Asymptomatic Cholelithiasis History [...] Podiatry 05/19/2015 End 05/19/15 Nirmal Bogdan Justo HEALTH ADMINISTRATOR 07/07/2017 End 07/07/17 ; Mohan Álvarez Ophthalmology 07/07/2017 End 07/07/17 Rickey Duffy Bishop Cardiology 09/30/2018 End 09/30/18 ; End of Live Planning discussed including patients advanced directive wishes: Yes I am willing to follow advanced directives. Mini-Cog Patient asked to remember the following three words: Banana, [place] and Chair Visuospatial/Executiv e Functioning: Clock drawin/2 [...] No history of dysuria, frequency or incontinence SCREEN EXAMINER: Negative for abnormal vaginal bleeding, abnormal vaginal [...] with supplements or by diet (goal of 9246-7236 mg/day - Discussed need and benefit for [...] arise. - Discussed diabetic education issues of halfway diabetic complications, hypoglycemic symptoms, hyperglycemic symptoms, diet, [...] prepared fairly simply. If you were a jkbu-xyg-xyowuujz eater, focus on the meat more than [...] your kitchen up for success. Always have uik-nfok-pwkemniv foods on hand ready to eat. Remove [...] unspecified type [R19.7] Order(s):ADMIN OF INFLUENZA VACCINE [R0754AWG] Order #: [id number]: 1 INFLUENZA SEASONAL HIGH DOSE AGE 65+ [[id number]] Order #: [id number] metFORMIN (GLUCOPHAGE) 500 mg tabletTake 1 tablet by mouth daily with breakfast.Disp: Rfl: HGB A1C [SPHML0K] Order #: [id number] FUTURE COMP METABOLIC PANEL [SQCMP] Order #: [id number] FUTURE Prescriptions as of 04/27/2019 Sig: COQ-10 [...] artery stent placement- 2006 [Z95*11/14/2015 Atherosclerosis of [place] coronary artery of na*11/14/2015 Asymptomatic cholelithiasis [K80.20] [...] prepared fairly simply. If you were a xedz-koc-vowkszsn eater, focus on the meat more than [...] your kitchen up for success. Always have xud-bcmh-flntgfmu foods on hand ready to eat. Remove [...] Encounter Status:Closed by JO PEREZ on 04/27/19 [facility] PROGRESSon 04-27-2019 PROGRESS HNO ID: [id number] Author: Jo Perez Service: ? Author Type: [...] coronary artery stent placement- 2006 Atherosclerosis of [place] Coronary Artery of [place] Heart Without Angina Pectoris Asymptomatic Cholelithiasis History [...] Gonzalez Podiatry 05/19/2015 End 05/19/15 Nirmal Kemp HEALTH ADMINISTRATOR 07/07/2017 End 07/07/17 ; Mohan Álvarez Ophthalmology 07/07/2017 End 07/07/17 Rickey Chavarria Cardiology 09/30/2018 End 09/30/18 ; End of Live Planning discussed including patients advanced directive wishes: Yes I am willing to follow advanced directives. Mini-Cog Patient asked to remember the following three words: Banana, [place] and Chair Visuospatial/Executiv e Functioning: Clock drawin/2 [...] No history of dysuria, frequency or incontinence SCREEN EXAMINER: Negative for abnormal vaginal bleeding, abnormal vaginal [...] with supplements or by diet (goal of 5024-0303 mg/day - Discussed need and benefit for [...] arise. 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 Author Type: Physician Type: Progress Notes Filed: 03/18/2019 7:00 PM Note Text: HISTORY OF PRESENT ILLNESS: Ezra Gonzalez is an 83-year-old ghwxu-xkfx-envvqeli female who returns for follow-up right shoulder [...] and strength with continued physical therapy in [place]. 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 Cruz Sanchez MD [facility] OBSOLETEon 03-17-2019 OBSOLETE Refill ([facility]) EZRA GONZALEZ ([id number]) 1935 F Date Time Provider Department 03/17/19 VIPUL BUCHANAN ([facility]) [facility] During your visit today, we recorded [...] Visit date not found Patient Phone numbers: [phone] (home) Request is for script(s) to be [...] artery stent placement- 2006 [Z95*11/14/2015 Atherosclerosis of [place] coronary artery of na*11/14/2015 Asymptomatic cholelithiasis [K80.20] [...] by JO PEREZ on 03/18/19 [facility] EZRA GONZALEZ ([id number]) 1935 F Date Time Provider Department 03/17/19 JO PEREZ [facility] During your visit today, we recorded the following information about you: Anne Marie Hobbs Reg 03/18/2019 7:41 AM Signed Pharmacy faxed requesting the following refill. Pending Prescriptions Disp Refills RANITIDINE 150 MG TABLET 90 tablet 0 Sig: TAKE ONE TABLET BY MOUTH EVERY DAY SHAHEEN: Yes Last refill: 12/16/2018 Patient last appointment: 09/30/2018 Patient next appointment: 04/02/2019 Patient Phone numbers: [phone] (home) Request is for script(s) to be [...] artery stent placement- 2006 [Z95*11/14/2015 Atherosclerosis of [place] coronary artery of na*11/14/2015 Asymptomatic cholelithiasis [K80.20] [...] by JO PEREZ on 03/18/19 [facility] Office Visit (AGHWW1 ) EZRA GONZALEZ ([id number]) 1935 F Date Time Provider Department 02/04/19 1:30 PM [facility] During your visit today, we recorded the following information about you: Respiration Weight Height 17/minute 80.7 kg 1.676 m Cruz Sanchez MD 02/04/2019 4:40 PM Signed HISTORY OF PRESENT ILLNESS: Ezra Gonzalez was provided orthopedic evaluation regarding right shoulder complaints. 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 - On anticoagulant therapy [...] conditions CARDIOVASCULAR: A-Fib, Coronary Arteriosclerosis, HTN, Old MT, Peripheral Venous Inufficiency, MSK: Degenerative Joint Disease, [...] GENERAL 3V OR MORE AP/TRUE AP/OTHER RT [[id number]] Order #: [id number] CONSULT TO PHYSICAL THERAPY (AG) [0725001] Order #: [id number]: 1 DRAIN/INJECT LARGE JOINT/BURSA [[id number]] Order #: [id number] [] betamethasone acetate-betamethasone sodium phosphate 12 mg [...] stent placement- 2006 [Z95*INVALID FOR* Atherosclerosis of [place] coronary artery of na*INVALID FOR* Asymptomatic cholelithiasis [...] Status:Closed by CRUZ SANCHEZ MD on 02/04/19 [facility] PROGRESSon 02-04-2019 PROGRESS HNO ID: [id number] Author: Cruz Sanchez Service: ? Author Type: Physician Type: Progress Notes Filed: 02/04/2019 4:40 PM Note Text: HISTORY OF PRESENT ILLNESS: Ezra Gonzalez was provided orthopedic evaluation regarding right shoulder complaints. 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 Cruz Sanchez MD [facility] OBSOLETEon 01-21-2019 OBSOLETE Refill ([facility]POB) EZRA GONZALEZ ([id number]) 1935 F Date Time Provider Department 01/21/19 [...] Date Reviewed: 11/27/2018 Reviewed by: Vika CastroWell[facility] HospitalFinesse Torres - Fully Assessed Reason for [...] stent placement- 2006 [Z95*INVALID FOR* Atherosclerosis of [place] coronary artery of na*INVALID FOR* Asymptomatic cholelithiasis [...] Status:Closed by RICKEY CHAVARRIA MD on 01/21/19 [facility] OBSOLETE Refill ([facility]) EZRA GONZALEZ ([id number]) 1935 F Date Time Provider Department 01/21/19 OJ PEREZ [facility] During your visit today, we recorded the following information about you: Anne Marie Hobbs Reg 01/21/2019 12:05 PM Signed Pharmacy faxed requesting the following refill. Pending Prescriptions Disp Refills FUROSEMIDE 20 MG TABLET 90 tablet 2 Sig: TAKE ONE TABLET BY MOUTH ONCE DAILY SHAHEEN: Yes Last refill: 01/05/2018 Patient last appointment: 09/30/2018 Patient next appointment: 04/02/2019 Patient Phone numbers: [phone] (home) Request is for script(s) to be [...] Date Reviewed: 11/27/2018 Reviewed by: Vika ([facility]) Brian - Fully Assessed Reason for [...] stent placement- 2006 [Z95*INVALID FOR* Atherosclerosis of [place] coronary artery of na*INVALID FOR* Asymptomatic cholelithiasis [...] Encounter Status:Closed by JO PEREZ on 01/21/19 [facility] CNTHERAPYon 12-14-2018 CNTHERAPY OT/PT/Speech Visit ([facility]) LISAEZRA ([id number]) 1935 F Date Time Provider Department 12/14/18 11:00 AM ANOOP COLLAZO (JAZMYN) [facility] Date Time Provider Department Center 12/14/2018 11:00 AM [id number] COLLAZO*AKSTWP [place] Reason for Visit: Difficulty [...] Date Reviewed: 11/27/2018 Reviewed by: Vika CastroWell[facility]) Brian - Fully Assessed Prescriptions as [...] Jazmyn Hinson, JAZMYN 12/14/2018 4:44 PM Signed [facility] OUTPATIENT AUDIOLOGY SERVICES AUDIOLOGIC EVALUATION REPORT 12/14/2018 Page 1 of 3 Patient: Ezra Gonzalez : 1935 Referred by: Jo Perez (PCP: Yazmin) Referred for: Evaluation of suspected change in hearing, tinnitus, or balance. Referral documented: In an order in Epic: OTHER ORDERS: : CONSULT TO AUDIOLOGY FOR DIAGNOSTIC TESTING [9003] (Order [id number]) Patient's major complaints: Progressively increasing difficulty in [...] --Pure tone audiometry using insert earphones demonstrates jbru-ie-mrnvvxazdk severe level sensorineural type hearing loss, worse [...] up w/ referring physician. Report routed via [email or web address] inbox to Dr. Perez on 12/14/2018 -Re-evaluation [...] Audiogram can be also be viewed in [facility] Smart[employer]:Audiology: Audiometry. OAE and tympanometry results can be viewed in [employer] Scanned Documents. RIGHT EAR Hearing Sensitivity: 250-500HZ: WNL; 750-2000Hz:mild; 3000-8000Hz: moderate-severe SNHL Word Recognition Score (order by difficulty 10 word list): Excellent (90%) at slt amplified loudness (fair at conversational loudness) Tympanometry: Type A : Normal ME function. Otoacoustic Emissions results: 750-3000Hz: WNL; 6291-4625: reduced; 8000Hz: absent. LEFT EAR Hearing Sensitivity: 250-500HZ: WNL; 750-3000Hz: moderate; 6000-8000Hz: severe SNHL Word Recognition Score (order by difficulty 10 word list): Excellent (90%) at amplified loudness (poor at conversational loudness) Tympanometry: Type A : Normal ME function. Otoacoustic Emissions results: 750-1000Hz: absent; 1701-0215: reduced; 6000-8000Hz: absent. William Hinson. Disc Sander 12/14/2018 3:30 PM Ezra Gonzalez : 1935 [...] during this visit: Audiometry Letter Text [facility] OBSOLETEon 12-14-2018 OBSOLETE Refill ([facility]) EZRA GONZALEZ ([id number]) 1935 F Date Time Provider Department 12/14/18 JO PEREZ [facility] During your visit today, we recorded the following information about you: Robert Diaz CMA 12/16/2018 1:00 PM Signed Patient called requesting the following refill. Pending Prescriptions Disp Refills RANITIDINE 150 MG TABLET 90 tablet 0 Sig: TAKE ONE TABLET BY MOUTH EVERY DAY SHAHEEN: Yes Last refill: 09/16/2018 Patient last appointment: 10/20/2018 Patient next appointment: 04/02/2019 Patient Phone numbers: [phone] (home) Request is for script(s) to be [...] Date Reviewed: 11/27/2018 Reviewed by: Vika CastroWellspan Good Sam[facility]itan HospitalFinesse Torres - Fully Assessed Reason for [...] stent placement- 2006 [Z95*INVALID FOR* Atherosclerosis of [place] coronary artery of na*INVALID FOR* Asymptomatic cholelithiasis [...] Encounter Status:Closed by JO PEREZ on 12/16/18 [facility] PROGRESSon 12-14-2018 PROGRESS HNO ID: [id number] Author: Anoop Crisostomo) JAZMYN Collazo Service: ? Author Type: Disc Sander Type: Progress Notes Filed: 12/14/2018 4:44 PM Note Text: [facility] OUTPATIENT AUDIOLOGY SERVICES AUDIOLOGIC EVALUATION REPORT 12/14/2018 Page 1 of 3 Patient: Ezra Gonzalez : 1935 Referred by: Jo Perez (PCP: Yazmin) Referred for: Evaluation of suspected change in hearing, tinnitus, or balance. Referral documented: In an order in [facility]: OTHER ORDERS: : CONSULT TO AUDIOLOGY FOR DIAGNOSTIC TESTING [9003] (Order [id number]) Patient's major complaints: Progressively increasing difficulty in [...] --Pure tone audiometry using insert earphones demonstrates ifcq-vx-ktyatuvnne severe level sensorineural type hearing loss, worse [...] up w/ referring physician. Report routed via [email or web address] inbox to Dr. Perez on 12/14/2018 -Re-evaluation [...] Audiogram can be also be viewed in [employer] [employer]:Audiology: Audiometry. OAE and tympanometry results can be viewed in [facility] Scanned Documents. RIGHT EAR Hearing Sensitivity: 250-500HZ: WNL; 750-2000Hz:mild; 3000-8000Hz: moderate-severe SNHL Word Recognition Score (order by difficulty 10 word list): Excellent (90%) at slt amplified loudness (fair at conversational loudness) Tympanometry: Type A : Normal ME function. Otoacoustic Emissions results: 750-3000Hz: WNL; 9150-4017: reduced; 8000Hz: absent. LEFT EAR Hearing Sensitivity: 250-500HZ: WNL; 750-3000Hz: moderate; 6000-8000Hz: severe SNHL Word Recognition Score (order by difficulty 10 word list): Excellent (90%) at amplified loudness (poor at conversational loudness) Tympanometry: Type A : Normal ME function. Otoacoustic Emissions results: 750-1000Hz: absent; 5067-1264: reduced; 6000-8000Hz: absent. William Hinson. Disc Sander 12/14/2018 3:30 PM Ezra Gonzalez : 1935 Page 3 of 3 GARCÍA Abbreviation Definition Degree of hearing sensitivity dB range WNL within normal limits WNL 0 - 20 SNHL sensorineural hearing loss Mild 20-40 CHL conductive hearing loss Moderate 40-55 MHL mixed hearing loss Moderately-Severe 55-70 ME middle ear Severe 70-90 OAE Distortion Product Otoacoustic Emissions Profound 90 + TM tympanic membrane [facility] CNOVon 11-27-2018 CNOV Office Visit ([facility]ARD[facility]W) EZRA GONZALEZ ([id number]) 1935 F Date Time Provider Department 8/30/19 [...] PRIMARY CARE PHYSICIAN: Jo Perez MD [address] [facility] [address] [place] [address] HISTORY OF PRESENT ILLNESS: Ms. Gonzalez is [...] again. 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 Ezra [...] of the time was spent in direct, rdbu-lo-gfhy, contact with the patient for management and counseling. 1. Essential hypertension - ICD9: 401.9, ICD10: I10 (primary diagnosis) 2. Obesity, Class I, BMI 30-34.9 - ICD9: 278.00, ICD10: E66.9 3. Mixed hyperlipidemia - ICD9: 272.2, ICD10: E78.2 4. Paroxysmal atrial fibrillation (HCC) - ICD9: 427.31, ICD10: I48.0 5. Chronic anticoagulation - ICD9: V58.61, ICD10: Z79.01 Rickey Chavarria M.D. [facility] Referring Provider: SELF [200] Allergies As of Date: 11/27/2018 Noted Allergy Reaction CODEINE 03/20/2015 16 - Unknown CRESTOR (ROSUVASTATIN) 03/20/2015 14 - Other: See Comments Comments: Myalgias DEMEROL (MEPERIDINE) 03/20/2015 8 - GI Upset LATEX 03/20/2015 2 - Rash LIPITOR (ATORVASTATIN) 03/20/2015 14 - Other: See Comments Comments: Myalgias Date Reviewed: 11/27/2018 Reviewed by: Vika CastroWellspan Good Samaritan HospitalFinesse Torres - Fully Assessed Reason for Visit: CARD Follow Up Annual [1232] Primary Visit Diagnosis:Essential hypertension [I10] Other Visit Diagnoses:Obesity, Class I, BMI 30-34.9 [E66.9] Mixed hyperlipidemia [E78.2] Paroxysmal atrial fibrillation (HCC) [I48.0] Chronic anticoagulation [Z79.01] Order(s):ECG B/O W INTERP (MED OFFICE) [ECG06] Order #: [id number] Prescriptions as of 11/27/2018 Sig: SIMVASTATIN 20 [...] stent placement- 2006 [Z95*INVALID FOR* Atherosclerosis of [place] coronary artery of na*INVALID FOR* Asymptomatic cholelithiasis [...] has no cardiac complaints today. Vika Torres [facility] Disposition: Return in about 1 year (around 11/28/2019). Follow-up and Disposition History Recorded Letter Text Encounter Status:Closed by RICKEY CHAVARRIA MD on 11/27/18 [facility] PROGRESSon 11-27-2018 PROGRESS HNO ID: [id number] Author: Rickey Chavarria Service: ? Author Type: Physician Type: Progress Notes Filed: 11/27/2018 11:24 AM Note Text: PRIMARY CARE PHYSICIAN: Jo Perez MD [address] [facility] [address] [place] [address] HISTORY OF PRESENT ILLNESS: Ms. Gonzalez is [...] again. 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 Ezra [...] have personally reviewed the Electrocardiogram. IMPRESSION: Ms. Gonzlaez is a 83 year old female with uncontrolled hypertension and hyperlipidemia. She is status post atrial fibrillation ablation. Remains in sinus rhythm. She has no active cardiac symptoms. Plan: Continue current medications follow-up in one year. During this 20 minute visit with greater than 50% of the time was spent in direct, gotx-xu-fwup, contact with the patient for management and counseling. 1. Essential hypertension - ICD9: 401.9, ICD10: I10 (primary diagnosis) 2. Obesity, Class I, BMI 30-34.9 - ICD9: 278.00, ICD10: E66.9 3. Mixed hyperlipidemia - ICD9: 272.2, ICD10: E78.2 4. Paroxysmal atrial fibrillation (HCC) - ICD9: 427.31, ICD10: I48.0 5. Chronic anticoagulation - ICD9: V58.61, ICD10: Z79.01 Rickey Chavarria M.D. [facility] BONE DENSITY STUDY BY XRAY 7 7080on 07-15-2017 BONE DENSITY STUDY BY XRAY [id number] Performed at [facility] APPROVED BY: Kemar Adams MD EXAMINATION: BONE MINERAL DENSITOMETRY (DEXA SCAN) EXAM DATE: 07/15/2017 09:43 CLINICAL INDICATION: 82-year-old postmenopausal female , follow-up osteoporosis screening. COMPARISON: DEXA scan 10/06/2013. DXA [employer] v.13.4 examination is performed on the lumbar [...] is a trademark of the [employer]'s [facility], a WHO Collaborating [place]. This applies to men over 50 and [...] high risk for accelerated bone loss). [facility] MAMMOGRAM SCREENING WITH CAD IF PERFORMEDon 06-27-2017 MAMMOGRAM SCREENING WITH CAD IF PERFORMED Performed at [facility] APPROVED BY: Lucas Garrido MD #[id number] - MAMMOGRAM SCREENING WITH CAD IF PERFORMEDBILATERAL DIGITAL SCREENING MAMMOGRAM WITH CAD WITH MEDIOLATERAL OBLIQUE CRANIOCAUDAL: 06/27/2017CLINICAL: Routine screening mammogram. Patient reports no breast problems. Comparison is made to exams dated: 07/22/2016 mammogram - [facility], 06/26/2016 mammogram, 06/09/2015 mammogram, and 04/01/2014 mammogram - [facility]. There are scattered fibroglandular elements in both breasts. Current study was also evaluated with a Computer Aided Detection (CAD) system. No significant masses, calcifications, or other findings are seen in either breast. There has been no significant interval change. IMPRESSION: NEGATIVEThere is no mammographic evidence of malignancy. A 1 year screening mammogram is recommended. The patient was notified of the results. uLcas cortesg/penrad:06/27/2017 11:38:04 Civil Structural Engineer: Loan Summers)(M), [facility] [place] Normal Birad 1 or 2 Mammogram BI-RADS: 1 Negative Normal [facility] Otheron 02-03-2015 CONVERTED CLINICAL HISTORY OPERATIVE PROCEDURE: Colonoscopy CLINICAL INFORMATION: Screening [facility] CONVERTED ELECTRONIC SIGNATURE MO PATRICK M.D., PATHOLOGIST (Electronic signature on file) Final Signed Out: 02/03/2015 12:44 [facility] CONVERTED FINAL DIAGNOSIS FINAL DIAGNOSI S: A) COLON, ASCENDING, BIOPSIES - FRAGMENTS OF TUBULAR ADENOMA. B) COLON, RANDOM BIOPSIES - NO PATHOLOGIC ABNORMALITIES. [facility] CONVERTED GROSS DESCRIPTION GROSS DESCRIPTION: A) Ascending [...] in cassette B x 3. SMS:[facility] CONVERTED ORDERING PROVIDER Ordering Provider: SHI LESTER [facility] Otheron 04-19-2010 CONVERTED ELECTRONIC SIGNATURE RAVINDER HAN M.D., PATHOLOGIST (Electronic signature on file) Final Signed Out: 04/19/2010 14:33 [facility] CONVERTED FINAL DIAGNOSIS FINAL DIAGNOSI S: RIGHT SHOULDER, EXCISION - BONE AND ATTACHED CARTILAGE WITH DEGENERATIVE CHANGES. SYNOVIUM WITH NONSPECIFIC REACTIVE CHANGES AND FOCAL MILD CHRONIC INFLAMMATION. SPECIMEN: SHOULDER [facility] CONVERTED GROSS DESCRIPTION GROSS DESCRIPTION: Rt shoulder tissue The container is labeled right shoulder tissue. Received are portions of pink-montague soft tissue and red-montague bone measuring 3 x 3 x 1 cm in aggregate. Sample of soft tissue is submitted in cassette 1, sample of bone is submitted in cassette 2 following decal. SMS/lrs MICROSCOPIC DESCRIPTION: Slides reviewed. 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 SPECIMEN: FEMORAL HEAD [facility] CONVERTED GROSS DESCRIPTION GROSS DESCRIPTION: Left femoral [...] decal. SMS:ATP:hlm MICROSCOPIC DESCRIPTION: Slides reviewed. SDS/gpl [facility] CONVERTED ORDERING PROVIDER Ordering Provider: CLOTILDE DOSS [facility] Thyroidon 08-02-2009 TSH Qn KVNG TYLER M.D., PATHOLOGIST (Electronic signature on file) Final Signed Out: 08/02/2009 14:47 [facility] Cardiacon 05-11-2001 Cholesterol [Mass/Vol] Ordering Provider : SAE RESENDIZ [facility] Otheron 05-11-2001 CONVERTED ELECTRONIC SIGNATURE MICHAEL HAWTHORNE M.D., PATHOLOGIST (Electronic signature on file) Final Signed Out: 05/11/2001 11:39 [facility] CONVERTED FINAL DIAGNOSIS TISSUE, REMOVE D AT RELEASE OF RIGHT RING FINGER - FIBROCOLLAGENOUS TISSUE WITH FOCAL FIBROBLASTIC REACTION AND FOCAL MIXOID CHANGE. ATTACHED SMALL AMOUNT OF TISSUE CONSISTENT WITH SYNOVIUM. [facility] Vital Signs Date Time Vital Sign Value Performing Clinician Facility 11-22-2024 07:12-0400 Body height 160.[address] Alexandra Hagen MD Work Phone: [facility] 11-22-2024 07:12-0400 Body mass index (BMI) [Ratio] 30.8 kg/m2 Dr. Alexandra Hagen MD Work Phone: 8(497)234-060624 [address] 11-22-2024 07:12-0400 Body weight 78.[address] Alexandra Hagen MD Work Phone: 7(769)484-290840 [place] [address] 11-22-2024 07:12-0400 Diastolic blood pressure 80 mm[Hg] Dr. Alexandra Hagen MD Work Phone: 1(204)506-325624 [address] 11-22-2024 07:12-0400 Heart rate 84 /min Dr. Alexandra Hagen MD Work Phone: 6(962)559-827524 [address] 11-22-2024 07:12-0400 Respiratory rate 20 /min Dr. Alexandra Hagen MD Work Phone: 3(654)718-780024 [address] 11-22-2024 07:12-0400 SaO2% (BldA) [Mass fraction] 95 % Dr. Alexandra Hagen MD Work Phone: 9(521)613-809724 [address] 11-22-2024 07:12-0400 Systolic blood pressure 125 mm[Hg] Dr. Alexandra Hagen MD Work Phone: [facility] 09-13-2024 14:00-0400 Body height 160.[address] Alexandra Hagen MD Work Phone: 6(531)402-908924 [address] 09-13-2024 14:00-0400 Body mass index (BMI) [Ratio] 30.7 kg/m2 Dr. Alexandra Hagen MD Work Phone: 6(847)989-133624 [address] 09-13-2024 14:00-0400 Body temperature 92.6 [degF] Dr. Alexandra Hagen MD Work Phone: 4(063)305-230624 [address] 09-13-2024 14:00-0400 Body weight 78.[address] Alexandra Hagen MD Work Phone: [facility] 09-13-2024 14:00-0400 Diastolic blood pressure 79 mm[Hg] Dr. Alexandra Hagen MD Work Phone: 0(979)263-928050 [place] [address] 09-13-2024 14:00-0400 Heart rate 83 /min Dr. Alexandra Hagen MD Work Phone: 0(878)165-949950 [place] [address] 09-13-2024 14:00-0400 Respiratory rate 17 /min Dr. Alexandra Hagen MD Work Phone: 1(613)685-639750 [place] [address] 09-13-2024 14:00-0400 SaO2% (BldA) [Mass fraction] 97 % Dr. Alexandra Hagen MD Work Phone: 0(532)374-982440 [place] [address] 09-13-2024 14:00-0400 Systolic blood pressure 126 mm[Hg] Dr. Alexandra Hagen MD Work Phone: 4(161)622-902224 [address] 09-11-2024 13:55-0400 Body mass index (BMI) [Ratio] 30.3 kg/m2 Dr. Alexandra Hagen MD Work Phone: 8(652)648-079124 [address] 09-11-2024 09:09-0400 Body temperature 97.8 [degF] Dr. Alexandra Hagen MD Work Phone: 8(460)503-383024 [address] 09-11-2024 09:09-0400 Diastolic blood pressure 85 mm[Hg] Dr. Alexandra Hagen MD Work Phone: 8(047)906-168050 [place] [address] 09-11-2024 09:09-0400 Heart rate 84 /min Dr. Alexandra Hagen MD Work Phone: 5(672)672-920440 [place] [address] 09-11-2024 09:09-0400 Respiratory rate 18 /min Dr. Alexandra Hagen MD Work Phone: 0(713)913-989124 [address] 09-11-2024 09:09-0400 SaO2% (BldA) [Mass fraction] 98 % Dr. Alexandra Hagen MD Work Phone: [facility] 09-11-2024 09:09-0400 Systolic blood pressure 174 mm[Hg] Dr. Alexandra Hagen MD Work Phone: [facility] 09-10-2024 17:17-0400 Body height 160.[address] Alexandra Hagen MD Work Phone: 7(560)400-281940 [place] [address] 09-10-2024 17:17-0400 Body weight 77.[address] Alexandra Hagen MD Work Phone: 0(763)911-674124 [address] 09-10-2024 16:30-0400 Diastolic blood pressure 73 mm[Hg] Dr. Alexandra Hagen MD Work Phone: 2(190)850-994040 [place] [address] 09-10-2024 16:30-0400 Heart rate 79 /min Dr. Alexandra Hagen MD Work Phone: 6(905)186-601840 [place] [address] 09-10-2024 16:30-0400 Respiratory rate 20 /min Dr. Alexandra Hagen MD Work Phone: 0(494)527-859824 [address] 09-10-2024 16:30-0400 SaO2% (BldA) [Mass fraction] 93 % Dr. Alexandra Hagen MD Work Phone: [facility] 09-10-2024 16:30-0400 Systolic blood pressure 118 mm[Hg] Dr. Alexandra Hagen MD Work Phone: 4(937)195-808550 [place] [address] 09-10-2024 16:07-0400 Body temperature 98.3 [degF] Dr. Alexandra Hagen MD Work Phone: [facility] 09-10-2024 14:19-0400 Body height 160.[address] Alexandra Hagen MD Work Phone: 2(535)398-688740 [place] [address] 09-10-2024 14:19-0400 Body mass index (BMI) [Ratio] 26.5 kg/m2 Dr. Alexandra Hagen MD Work Phone: 3(190)496-036950 [place] [address] 09-10-2024 14:19-0400 Body weight 68.[address] Alexandra Hagen MD Work Phone: [facility] 09-08-2024 15:30-0400 Heart rate 64 /min Dr. Alexandra Hagen MD Work Phone: 0(004)183-921350 [place] [address] 09-08-2024 15:30-0400 Respiratory rate 23 /min Dr. Alexandra Hagen MD Work Phone: 0(997)950-446840 [place] [address] 09-08-2024 15:30-0400 SaO2% (BldA) [Mass fraction] 97 % Dr. Alexandra Hagen MD Work Phone: 7(254)250-192550 [place] [address] 09-08-2024 12:22-0400 Body height 160.[address] Alexandra Hagen MD Work Phone: 1(470)558-466740 [place] [address] 09-08-2024 12:22-0400 Body mass index (BMI) [Ratio] 33.5 kg/m2 Dr. Alexandra Hagen MD Work Phone: 5(390)424-882040 [place] [address] 09-08-2024 12:22-0400 Body temperature 98 [degF] Dr. Alexandra Hagen MD Work Phone: 7(716)358-315340 [place] [address] 09-08-2024 12:22-0400 Body weight 85.[address] Alexandra Hagen MD Work Phone: 1(004)932-309840 [place] [address] 09-08-2024 12:22-0400 Diastolic blood pressure 70 mm[Hg] Dr. Alexandra Hagen MD Work Phone: 6(374)135-918340 [place] [address] 09-08-2024 12:22-0400 Systolic blood pressure 131 mm[Hg] Dr. Alexandra Hagen MD Work Phone: 4(491)205-534540 [place] [address] 07-01-2024 10:38-0400 Body height 160.[address] Alexandra Hagen MD Work Phone: 9(715)704-711040 [place] [address] 07-01-2024 10:38-0400 Body mass index (BMI) [Ratio] 30.8 kg/m2 Dr. Alexandra Hagen MD Work Phone: 7(757)301-687940 [place] [address] 07-01-2024 10:38-0400 Body weight 78.[address] Alexandra Hagen MD Work Phone: [facility] 07-01-2024 10:38-0400 Diastolic blood pressure 85 mm[Hg] Dr. Alexandra Hagen MD Work Phone: [facility] 07-01-2024 10:38-0400 Heart rate 60 /min Dr. Alexandra Hagen MD Work Phone: [facility] 07-01-2024 10:38-0400 Respiratory rate 16 /min Dr. Alexandra Hagen MD Work Phone: [facility] 07-01-2024 10:38-0400 Systolic blood pressure 184 mm[Hg] Dr. Alexandra Hagen MD Work Phone: 9(055)762-942950 [place] [address] 05-10-2024 14:35-0500 Body height 160.[address] Alexandra Hagen MD Work Phone: 3(280)742-291150 [place] [address] 05-10-2024 14:35-0500 Body mass index (BMI) [Ratio] 30.9 kg/m2 Dr. Alexandra Hagen MD Work Phone: [facility] 05-10-2024 14:35-0500 Body temperature 97.8 [degF] Dr. Alexandra Hagen MD Work Phone: [facility] 05-10-2024 14:35-0500 Body weight 79.[address] Alexandra Hagen MD Work Phone: [facility] 05-10-2024 14:35-0500 Diastolic blood pressure 86 mm[Hg] Dr. Alexandra Hagen MD Work Phone: [facility] 05-10-2024 14:35-0500 Heart rate 75 /min Dr. Alexandra Hagen MD Work Phone: [facility] 05-10-2024 14:35-0500 Respiratory rate 16 /min Dr. Alexandra Hagen MD Work Phone: [facility] 05-10-2024 14:35-0500 SaO2% (BldA) [Mass fraction] 94 % Dr. Alexandra Hagen MD Work Phone: [facility] 05-10-2024 14:35-0500 Systolic blood pressure 140 mm[Hg] Dr. Alexandra Hagen MD Work Phone: [facility] 06-20-2023 11:10-0400 Diastolic blood pressure 92 mm[Hg] Sae Conde MD Work Phone: [facility] 06-20-2023 11:10-0400 Heart rate 88 /min Sae Conde MD Work Phone: [facility] 06-20-2023 11:10-0400 Systolic blood pressure 173 mm[Hg] Sae Conde MD Work Phone: [facility] 06-20-2023 05:34-0400 Body temperature 97.39 [degF] Sae Conde MD Work Phone: [facility] 06-20-2023 05:34-0400 Respiratory rate 20 /min Sae Conde MD Work Phone: [facility] 06-20-2023 05:34-0400 SaO2% (BldA) [Mass fraction] 95 % Sae Conde MD Work Phone: [facility] 06-17-2023 18:30-0400 Body height 160 cm Sae Conde MD Work Phone: [facility] 06-17-2023 18:30-0400 Body mass index (BMI) [Ratio] 30.83 kg/m2 Sae Conde MD Work Phone: [facility] 06-17-2023 18:30-0400 Body weight 78.93 kg Sae Conde MD Work Phone: [facility] 06-16-2023 11:02-0400 Body temperature 96.4 [degF] Dr. Rosemary Doran Work Phone: [facility] 06-16-2023 11:02-0400 Diastolic blood pressure 84 mm[Hg] Dr. Rosemary Doran Work Phone: [facility] 06-16-2023 11:02-0400 Heart rate 72 /min Dr. Rosemary Doran Work Phone: [facility] 06-16-2023 11:02-0400 Respiratory rate 16 /min Dr. Rosemary Doran Work Phone: [facility] 06-16-2023 11:02-0400 SaO2% (BldA) [Mass fraction] 96 % Dr. Rosemary Doran Work Phone: [facility] 06-16-2023 11:02-0400 Systolic blood pressure 157 mm[Hg] Dr. Rosemary Doran Work Phone: [facility] 06-16-2023 08:33-0400 Body height 160.[address] Rosemary Doran Work Phone: [facility] 06-16-2023 08:33-0400 Body mass index (BMI) [Ratio] 33.1 kg/m2 Dr. Rosemary Doran Work Phone: [facility] 06-16-2023 08:33-0400 Body weight 84.[address] Rosemary Doran Work Phone: [facility] 05-19-2023 11:21-0500 Body height 160.[address] Rosemary Doran Work Phone: [facility] 05-19-2023 11:21-0500 Body mass index (BMI) [Ratio] 31.6 kg/m2 Dr. Rosemary Doran Work Phone: [facility] 05-19-2023 11:21-0500 Body temperature 97.8 [degF] Dr. Rosemary Doran Work Phone: [facility] 05-19-2023 11:21-0500 Body weight 81.[address] Rosemary Doran Work Phone: [facility] 05-19-2023 11:21-0500 Diastolic blood pressure 90 mm[Hg] Dr. Rosemary Doran Work Phone: [facility] 05-19-2023 11:21-0500 Heart rate 88 /min Dr. Rosemary Doran Work Phone: [facility] 05-19-2023 11:21-0500 Respiratory rate 17 /min Dr. Rosemary Doran Work Phone: [facility] 05-19-2023 11:21-0500 SaO2% (BldA) [Mass fraction] 98 % Dr. Rosemary Doran Work Phone: [facility] 05-19-2023 11:21-0500 Systolic blood pressure 152 mm[Hg] Dr. Rosemary Doran Work Phone: [facility] 05-15-2023 09:01-0500 Body mass index (BMI) [Ratio] 31.6 kg/m2 Dr. Rosemary Doran Work Phone: [facility] 05-15-2023 09:01-0500 Body weight 81.[address] Rosemary Doran Work Phone: [facility] 05-15-2023 09:01-0500 Diastolic blood pressure 85 mm[Hg] Dr. Rosemary Doran Work Phone: [facility] 05-15-2023 09:01-0500 Heart rate 78 /min Dr. Rosemary Doran Work Phone: [facility] 05-15-2023 09:01-0500 Respiratory rate 18 /min Dr. Rosemary Doran Work Phone: [facility] 05-15-2023 09:01-0500 Systolic blood pressure 156 mm[Hg] Dr. Rosemary Doran Work Phone: [facility] 01-20-2023 08:05-0400 Body height 160.[address] Rosemary Doran Work Phone: [facility] 01-20-2023 08:05-0400 Body mass index (BMI) [Ratio] 32 kg/m2 Dr. Rosemary Doran Work Phone: [facility] 01-20-2023 08:05-0400 Body temperature 98 [degF] Dr. Rosemary Doran Work Phone: [facility] 01-20-2023 08:05-0400 Body weight 82.[address] Rosemary Doran Work Phone: [facility] 01-20-2023 08:05-0400 Diastolic blood pressure 90 mm[Hg] Dr. Rosemary Doran Work Phone: [facility] 01-20-2023 08:05-0400 Heart rate 88 /min Dr. Rosemary Doran Work Phone: [facility] 01-20-2023 08:05-0400 Respiratory rate 17 /min Dr. Rosemary Doran Work Phone: [facility] 01-20-2023 08:05-0400 SaO2% (BldA) [Mass fraction] 97 % Dr. Rosemary Doran Work Phone: [facility] 01-20-2023 08:05-0400 Systolic blood pressure 140 mm[Hg] Dr. Rosemary Doran Work Phone: [facility] 12-28-2022 11:09-0400 Body temperature 97.8 [degF] Dr. Rosemary Doran Work Phone: [facility] 12-28-2022 11:09-0400 Diastolic blood pressure 79 mm[Hg] Dr. Rosemary Doran Work Phone: [facility] 12-28-2022 11:09-0400 Heart rate 84 /min Dr. Rosemary Doran Work Phone: [facility] 12-28-2022 11:09-0400 Respiratory rate 16 /min Dr. Rosemary Doran Work Phone: [facility] 12-28-2022 11:09-0400 SaO2% (BldA) [Mass fraction] 96 % Dr. Rosemary Doran Work Phone: [facility] 12-28-2022 11:09-0400 Systolic blood pressure 169 mm[Hg] Dr. Rosemary Doran Work Phone: [facility] 12-27-2022 19:16-0400 Body height 160.[address] Rosemary Doran Work Phone: [facility] 12-27-2022 19:16-0400 Body mass index (BMI) [Ratio] 32.1 kg/m2 Dr. Rosemary Doran Work Phone: [facility] 12-27-2022 19:16-0400 Body weight 82.[address] Rosemary Doran Work Phone: [facility] 12-05-2022 09:25-0400 Body temperature 98.2 [degF] Dr. Rosemary Doran Work Phone: [facility] 12-05-2022 09:25-0400 Body weight 82.[address] Rosemary Doran Work Phone: [facility] 12-05-2022 09:25-0400 Diastolic blood pressure 85 mm[Hg] Dr. Rosemary Doran Work Phone: [facility] 12-05-2022 09:25-0400 Heart rate 90 /min Dr. Rosemary Doran Work Phone: [facility] 12-05-2022 09:25-0400 SaO2% (BldA) [Mass fraction] 95 % Dr. Rosemary Doran Work Phone: [facility] 12-05-2022 09:25-0400 Systolic blood pressure 145 mm[Hg] Dr. Rosemary Doran Work Phone: [facility] 11-18-2022 11:24-0400 Diastolic blood pressure 82 mm[Hg] Dr. Rosemary Doran Work Phone: [facility] 11-18-2022 11:24-0400 Heart rate 76 /min Dr. Rosemary Doran Work Phone: [facility] 11-18-2022 11:24-0400 Respiratory rate 15 /min Dr. Rosemary Doran Work Phone: [facility] 11-18-2022 11:24-0400 SaO2% (BldA) [Mass fraction] 98 % Dr. Rosemary Doran Work Phone: [facility] 11-18-2022 11:24-0400 Systolic blood pressure 137 mm[Hg] Dr. Rosemary Doran Work Phone: [facility] 11-18-2022 07:55-0400 Body height 160.[address] Rosemary Doran Work Phone: [facility] 11-18-2022 07:55-0400 Body mass index (BMI) [Ratio] 32.9 kg/m2 Dr. Rosemary Doran Work Phone: [facility] 11-18-2022 07:55-0400 Body weight 84.[address] Rosemary Doran Work Phone: [facility] 11-18-2022 07:50-0400 Body temperature 97.8 [degF] Dr. Rosemary Doran Work Phone: [facility] 11-15-2022 10:11-0400 Body mass index (BMI) [Ratio] 32.2 kg/m2 Dr. Rosemary Doran Work Phone: [facility] 11-15-2022 08:55-0400 Body temperature 97.7 [degF] Dr. Rosemary Doran Work Phone: [facility] 11-15-2022 08:55-0400 Diastolic blood pressure 78 mm[Hg] Dr. Rosemary Doran Work Phone: [facility] 11-15-2022 08:55-0400 Heart rate 68 /min Dr. Rosemary Doran Work Phone: [facility] 11-15-2022 08:55-0400 Respiratory rate 16 /min Dr. Rosemary Doran Work Phone: [facility] 11-15-2022 08:55-0400 SaO2% (BldA) [Mass fraction] 96 % Dr. Rosemary oDran Work Phone: [facility] 11-15-2022 08:55-0400 Systolic blood pressure 136 mm[Hg] Dr. Rosemary Doran Work Phone: [facility] 11-14-2022 13:12-0400 Body weight 82.[address] Rosemary Doran Work Phone: [facility] 11-14-2022 12:30-0400 Body temperature 97.6 [degF] Dr. Rosemary Doran Work Phone: [facility] 11-14-2022 12:30-0400 Diastolic blood pressure 101 mm[Hg] Dr. Rosemary Doran Work Phone: [facility] 11-14-2022 12:30-0400 Heart rate 64 /min Dr. Rosemary Doran Work Phone: [facility] 11-14-2022 12:30-0400 Respiratory rate 14 /min Dr. Rosemary Doran Work Phone: [facility] 11-14-2022 12:30-0400 SaO2% (BldA) [Mass fraction] 98 % Dr. Rosemary Doran Work Phone: [facility] 11-14-2022 12:30-0400 Systolic blood pressure 164 mm[Hg] Dr. Rosemary Doran Work Phone: [facility] 11-14-2022 11:02-0400 Body height 160.[address] Rosemary Doran Work Phone: [facility] 11-14-2022 11:02-0400 Body mass index (BMI) [Ratio] 33.7 kg/m2 Dr. Rosemary Doran Work Phone: [facility] 11-14-2022 11:02-0400 Body weight 86.[address] Rosemary Doran Work Phone: [facility] 10-15-2022 09:24-0400 Body height 160.[address] Rosemary Doran Work Phone: [facility] 10-15-2022 09:24-0400 Body mass index (BMI) [Ratio] 30.8 kg/m2 Dr. Rosemary Doran Work Phone: [facility] 10-15-2022 09:24-0400 Body weight 78.[address] Rosemary Doran Work Phone: [facility] 10-15-2022 09:24-0400 Diastolic blood pressure 87 mm[Hg] Dr. Rosemary Doran Work Phone: [facility] 10-15-2022 09:24-0400 Heart rate 73 /min Dr. Rosemary Doran Work Phone: [facility] 10-15-2022 09:24-0400 Respiratory rate 18 /min Dr. Rosemary Doran Work Phone: [facility] 10-15-2022 09:24-0400 Systolic blood pressure 149 mm[Hg] Dr. Rosemary Doran Work Phone: [facility] 09-18-2022 19:36-0400 Diastolic blood pressure 72 mm[Hg] Dr. Rosemary Doran Work Phone: [facility] 09-18-2022 19:36-0400 Systolic blood pressure 140 mm[Hg] Dr. Rosemary Doran Work Phone: [facility] 09-18-2022 08:05-0400 Body height 160.[address] Roseamry Doran Work Phone: [facility] 09-18-2022 08:05-0400 Body mass index (BMI) [Ratio] 31.8 kg/m2 Dr. Rosemary Doran Work Phone: [facility] 09-18-2022 08:05-0400 Body temperature 97.8 [degF] Dr. Rosemary Doran Work Phone: [facility] 09-18-2022 08:05-0400 Body weight 81.[address] Rosemary Doran Work Phone: [facility] 09-18-2022 08:05-0400 Heart rate 111 /min Dr. Rosemary Doran Work Phone: [facility] 09-18-2022 08:05-0400 Respiratory rate 17 /min Dr. Rosemary Doran Work Phone: [facility] 09-18-2022 08:05-0400 SaO2% (BldA) [Mass fraction] 99 % Dr. Rosemary Doran Work Phone: [facility] 09-08-2022 16:03-0400 Diastolic blood pressure 84 mm[Hg] Dr. Rosemary Doran Work Phone: [facility] 09-08-2022 16:03-0400 Heart rate 90 /min Dr. Rosemary Doran Work Phone: [facility] 09-08-2022 16:03-0400 Respiratory rate 20 /min Dr. Rosemary Doran Work Phone: [facility] 09-08-2022 16:03-0400 SaO2% (BldA) [Mass fraction] 97 % Dr. Rosemary Doran Work Phone: [facility] 09-08-2022 16:03-0400 Systolic blood pressure 157 mm[Hg] Dr. Rosemary Doran Work Phone: [facility] 09-08-2022 15:32-0400 Body mass index (BMI) [Ratio] 33.2 kg/m2 Dr. Rosemary Doran Work Phone: [facility] 09-08-2022 15:32-0400 Body weight [address] Rosemary Doran Work Phone: [facility] 09-08-2022 14:26-0400 Body temperature 96.8 [degF] Dr. Rosemary Doran Work Phone: [facility] 04-16-2022 14:26-0500 Body height 160.[address] Rosemary Doran Work Phone: [facility] 04-16-2022 14:26-0500 Body mass index (BMI) [Ratio] 30.6 kg/m2 Dr. Rosemary Doran Work Phone: [facility] 04-16-2022 14:26-0500 Body weight 78.[address] Rosemary Doran Work Phone: [facility] 04-16-2022 14:26-0500 Diastolic blood pressure 60 mm[Hg] Dr. Rosemary Doran Work Phone: [facility] 04-16-2022 14:26-0500 Heart rate 88 /min Dr. Rosemary Doran Work Phone: [facility] 04-16-2022 14:26-0500 Respiratory rate 18 /min Dr. Rosemary Doran Work Phone: [facility] 04-16-2022 14:26-0500 Systolic blood pressure 89 mm[Hg] Dr. Rosemary Doran Work Phone: [facility] 02-11-2022 02:02-0500 Diastolic blood pressure 82 mm[Hg] Dr. Rosemary Doran Work Phone: [facility] 02-11-2022 02:02-0500 Heart rate 74 /min Dr. Rosemary Doran Work Phone: [facility] 02-11-2022 02:02-0500 Respiratory rate 16 /min Dr. Rosemary Doran Work Phone: [facility] 02-11-2022 02:02-0500 SaO2% (BldA) [Mass fraction] 96 % Dr. Rosemary Doran Work Phone: [facility] 02-11-2022 02:02-0500 Systolic blood pressure 106 mm[Hg] Dr. Rosemary Doran Work Phone: [facility] 02-11-2022 00:07-0500 Body height 160.[address] Rosemary Doran Work Phone: [facility] Work Phone: 02-11-2022 00:07-0500 Body mass index (BMI) [Ratio] 33.1 kg/m2 Dr. Rosemary Doran Work Phone: [facility] 02-11-2022 00:07-0500 Body temperature 98.4 [degF] Dr. Rosemary Doran Work Phone: [facility] 02-11-2022 00:07-0500 Body weight 84.[address] Rosemary Doran Work Phone: [facility] 10-18-2021 10:26-0400 Body mass index (BMI) [Ratio] 33.1 kg/m2 Dr. Rosemary Doran Work Phone: [facility] Work Phone: 10-18-2021 10:26-0400 Body weight 84.[address] Rosemary Doran Work Phone: [facility] Work Phone: 10-18-2021 10:26-0400 Diastolic blood pressure 63 mm[Hg] Dr. Rosemary Doran Work Phone: [facility] Work Phone: 10-18-2021 10:26-0400 Heart rate 87 /min Dr. Rosemary Doran Work Phone: [facility] Work Phone: 10-18-2021 10:26-0400 Respiratory rate 20 /min Dr. Rosemary Doran Work Phone: [facility] Work Phone: 10-18-2021 10:26-0400 SaO2% (BldA) [Mass fraction] 96 % Dr. Rosemary Doran Work Phone: [facility] Work Phone: 10-18-2021 10:26-0400 Systolic blood pressure 101 mm[Hg] Dr. Rosemary Doran Work Phone: [facility] Work Phone: Encounters Encounter Date Encounter Type Care Provider Facility Start: 01-25-2025 End: 01-25-2025 ambulatory [facility] Facility:[facility] Start: 12-30-2024 Registered Referred [facility] Work Phone: Start: 12-30-2024 End: 12-30-2024 ambulatory Cesar MARTINEZ Facility:[facility] Start: 12-24-[address] Kvng [facility] Work Phone: Start: 12-24-2024 End: 12-24-2024 ambulatory Kvng MARTINEZ Facility:[facility] Start: 11-30-2024 ambulatory Kvng MARTINEZ Facil ity:[facility] Start: 11-30-[address] [facility] Work Phone: Start: 11-22-2024 End: 11-22-2024 Patient encounter procedure Yinka Johnson [place] [facility] Work Phone: Start: 11-22-2024 End: 11-22-[address] Alexandra Hagen MD Work Phone: -[facility] Start: 11-22-2024 End: 11-22-2024 ambulatory Yinka Johnson Facility:[facility] Start: 11-08-2024 ambulatory Kvng MARTINEZ Facil ity:[facility] Start: 11-08-[address] [facility] Work Phone: Start: 10-25-[address] [facility] Work Phone: Start: 10-25-2024 End: 10-25-2024 ambulatory Kvng MARTINEZ Facility:[facility] Start: 10-11-[address] Kvng [facility] Work Phone: Start: 10-11-2024 End: 10-11-2024 ambulatory Kvng MARTINEZ Facility:[facility] Start: 10-04-2024 ambulatory Cesar MARTINEZ Facilit y:[facility] Start: 10-04-[address] [facility] Work Phone: Start: 09-24-2024 End: 09-24-[address] Anoop Blackmon MD Work Phone: [facility] Start: 09-24-2024 End: 09-24-2024 [facility] Start: 09-24-2024 Registered Referred Cesar Leonard [facility] Work Phone: Start: 09-24-2024 End: 09-24-2024 ambulatory [place] [facility] Facility:[facility] Start: 09-22-[address] Kvng LeonardVallejo [facility] Work Phone: Start: 09-22-2024 End: 09-22-2024 ambulatory Kvng MARTINEZ Facility:[facility] Start: 09-17-2024 Registered Referred Cesar Leonard [facility] Work Phone: Start: 09-17-2024 End: 09-17-2024 ambulatory Cesarakanksha MARTINEZ Facility:[facility] Start: 09-13-2024 End: 09-13-[address] Anant Juarez MD -[facility] Work Phone: Start: 09-13-2024 End: 09-13-[address] Alexandra Hagen MD Work Phone: [facility] Work Phone: Start: 09-13-2024 End: 09-13-2024 ambulatory Anant Juarez Facility:[facility] Start: 09-11-2024 Non-patient / Non-visit Dr. Bai [facility] Work Phone: Start: 09-10-2024 End: 09-11-2024 ambulatory Matthew Oro Facility:[facility] Start: 09-10-2024 End: 09-11-2024 Evaluation and management of inpatient Dr. Matthew Oro DO -[facility] Work Phone: Start: 09-10-2024 End: 09-11-[address] Alexandra Hagen MD Work Phone: [facility] Work Phone: Start: 09-08-2024 End: 09-08-2024 Emergency department patient visit Dr. Alexandra Hagen MD Work Phone: -Emergency Department Work Phone: Start: 08-18-2024 End: 08-18-[address] Alexandra Hagen MD Work Phone: [facility] Work Phone: Start: 08-18-2024 End: 08-18-2024 Departed Referred Cesar Chang [facility] Work Phone: Start: 08-18-2024 Registered Referred Cesar Leonard [facility] Work Phone: Start: 08-18-2024 End: 08-18-2024 ambulatory Cesar MARTINEZ Facility:[facility] Start: 07-19-2024 End: 07-19-[address] Alexandra Hagen MD Work Phone: [facility] Work Phone: Start: 07-19-2024 End: 07-19-2024 Departed Referred Cesar LeonardVallejo [facility] Work Phone: Start: 07-19-2024 End: 07-19-2024 ambulatory Cesar MARTINEZ Facility:[facility] Start: 07-01-2024 End: 07-01-[address] Cesar Cole MD -[facility] Work Phone: Start: 07-01-2024 End: 07-01-2024 ambulatory Alexandra Hagen Facility:[facility] Start: 06-16-2024 End: 06-16-[address] Alexandra Hagen MD Work Phone: [facility] Work Phone: Start: 06-16-2024 End: 06-16-[address] [facility]: Start: 06-16-[address] Kvng leger MD [facility] Work Phone: Start: 06-16-2024 End: 06-16-2024 ambulatory Kvng MARTINEZ Facility:[facility] Start: 06-09-2024 End: 06-09-[address] Alexandra Hagen MD Work Phone: [facility] Work Phone: Start: 06-09-2024 End: 06-09-[address] Kvng Ochoa MD -[facility] Work Phone: Start: 06-09-2024 End: 06-09-2024 ambulatory Kvng MARTINEZ Facility:[facility] Start: 05-19-2024 End: 05-19-[address] Alexandra Hagen MD Work Phone: [facility] Work Phone: Start: 05-19-2024 End: 05-19-2024 Departed Referred Cesar [facility] Work Phone: Start: 05-19-2024 Registered Referred [facility] Work Phone: Start: 05-19-2024 End: 05-19-2024 ambulatory Cesar MARTINEZ Facility:[facility] Start: 05-12-2024 ambulatory Anant MARTINEZ Fac ility:[facility] Start: 05-12-2024 Registered Referred Anant [facility] Work Phone: Start: 05-10-2024 End: 05-10-[address] Anant Juarez MD -[facility] Work Phone: Start: 05-10-2024 End: 05-10-2024 ambulatory Anant Juarez Facility:[facility] Start: 05-05-2024 End: 05-05-[address] Alexandra Hagen MD Work Phone: [facility] Work Phone: Start: 05-05-2024 End: 05-05-2024 Departed Referred [facility] Work Phone: Start: 05-05-2024 Registered Referred [facility] Work Phone: Start: 05-05-2024 End: 05-05-2024 ambulatory Cesar MARTINEZ Facility:[facility] Start: 04-28-2024 End: 04-28-[address] Alexandra Hagen MD Work Phone: [facility] Work Phone: Start: 04-28-2024 End: 04-28-[address] Kvng [facility] Work Phone: Start: 04-28-2024 End: 04-28-2024 ambulatory Kvng MARTINEZ Facility:[facility] Start: 04-14-2024 ambulatory Kvng MARTINEZ Facil ity:[facility] Start: 04-14-[address] Kvng [facility] Work Phone: Start: 04-09-2024 End: 04-09-[address] Kvng [facility] Work Phone: Start: 04-09-2024 End: 04-09-2024 ambulatory Kvng MARTINEZ Facility:[facility] Start: 04-06-2024 End: 04-06-[address] Kvng [facility] Work Phone: Start: 04-05-2024 End: 04-06-2024 ambulatory Kvng MARTINEZ Facility:[facility] Start: 04-05-[address] Kvng [facility] Work Phone: Start: 03-29-2024 ambulatory Kvng MARTINEZ Facil ity:[facility] Start: 03-29-[address] Kvng [facility] Work Phone: Start: 03-26-2024 ambulatory Kvng Martinezins [facility] Facil ity:[facility] Start: 03-26-[address] Kvng [facility] Work Phone: Start: 03-25-2024 ambulatory Kvng Ochoa OLS Facil ity:[facility] Start: 03-25-[address] [facility] Work Phone: Start: 03-19-2024 ambulatory Kvng Martinezkhris MARTINEZ Facil ity:[facility] Start: 03-19-[address] Kv[facility] Work Phone: Start: 03-17-2024 ambulatory Kvng Ochoa OLS Facil ity:[facility] Start: 03-17-[address] Kvng [facility] Work Phone: Start: 03-10-2024 ambulatory Kvng Ochoa OLS Facil ity:[facility] Start: 03-10-[address] Kvng [facility] Work Phone: Start: 03-08-2024 ambulatory Kvng Ochoa OLS Facil ity:[facility] Start: 03-08-[address] Kvng [facility] Work Phone: Start: 03-04-2024 ambulatory Kvng Ochoa OLS Facil ity:[facility] Start: 03-04-[address] K[facility] Work Phone: Start: 02-05-2024 End: 02-05-[address] Kvng [facility] Work Phone: Start: 02-05-2024 End: 02-05-2024 ambulatory Kvng MARTINEZ Facility:[facility] Start: 06-30-2023 End: 06-30-[address] Rosemary Doran Work Phone: [facility] Work Phone: Start: 06-30-2023 End: 06-30-[address] Rosemary Doran Work Phone: [facility] Work Phone: Start: 06-16-2023 End: 06-20-2023 Evaluation and management of inpatient [facility] Start: 06-16-2023 End: 06-20-2023 Evaluation and management of inpatient Sae Conde MD Work Phone: [facility] Comment on above: Closed displaced fra cture of medial condyle of right humerus, initial encounter (Primary Dx) Start: 06-16-2023 Non-patient / Non-visit Dr. Slim Doran Work Phone: [facility] Start: 06-16-2023 End: 06-16-2023 Emergency department patient visit Dr. Rosemary Doran Work Phone: [facility]-Emergency Department Work Phone: Start: 05-30-2023 End: 05-30-[address] Rosemary Doran Work Phone: [facility] Work Phone: Start: 05-30-2023 End: 05-30-[address] Rosemary Doran Work Phone: [facility] Work Phone: Start: 05-19-2023 End: 05-19-[address] Rosemary Doran Work Phone: [facility] Work Phone: Start: 05-15-2023 End: 05-15-[address] Rosemary Doran Work Phone: [facility] Work Phone: Start: 05-12-2023 End: 05-12-[address] Rosemary Doran Work Phone: [facility] Work Phone: Start: 05-12-[address] Rosemary Doran Work Phone: [facility] Work Phone: Start: 05-01-2023 End: 05-01-[address] Rosemary Doran Work Phone: [facility] Work Phone: Start: 05-01-2023 End: 05-01-[address] Rosemary Doran Work Phone: [facility] Work Phone: Start: 04-17-2023 End: 04-17-[address] Rosemary Doran Work Phone: [facility] Work Phone: Start: 04-17-2023 End: 04-17-[address] Rosemary Doran Work Phone: [facility] Work Phone: Start: 04-17-[address] Rosemary Doran Work Phone: [facility] Work Phone: Start: 03-20-2023 End: 03-20-[address] Rosemary Doran Work Phone: [facility] Work Phone: Start: 02-21-2023 End: 02-21-[address] Rosemary Doran Work Phone: [facility] Work Phone: Start: 02-21-2023 End: 02-21-[address] Rosemary Doran Work Phone: [facility] Work Phone: Start: 01-20-2023 End: 01-20-[address] Rosemary Doran Work Phone: [facility] Work Phone: Start: 01-20-2023 End: 01-20-[address] Rosemary Doran Work Phone: [facility] Work Phone: Start: 01-20-2023 End: 01-20-[address] Rosemary Doran Work Phone: [facility] Work Phone: Start: 01-16-2023 End: 01-16-[address] Rosemary Doran Work Phone: [facility] Work Phone: Start: 01-16-2023 End: 01-16-[address] Rosemary Doran Work Phone: [facility] Work Phone: Start: 12-28-2022 Non-patient / Non-visit Dr. Slim Doran Work Phone: [facility] Work Phone: Start: 12-27-2022 Non-patient / Non-visit Dr. Slim Doran Work Phone: [facility] Work Phone: Start: 12-27-2022 End: 12-28-2022 Evaluation and management of inpatient Dr. Rosemary Doran Work Phone: [facility]-Progressive [facility] Unit Work Phone: Start: 12-27-2022 End: 12-28-[address] Rosemary Doran Work Phone: [facility] Work Phone: Start: 12-19-2022 End: 12-19-[address] Rosemary Doran Work Phone: [facility] Work Phone: Start: 12-19-2022 End: 12-19-[address] Rosemary Doran Work Phone: [facility] Work Phone: Start: 12-19-[address] Rosemary Doran Work Phone: [facility] Work Phone: Start: 12-09-2022 End: 12-09-[address] Rosemary Doran Work Phone: [facility] Work Phone: Start: 12-09-2022 End: 12-09-[address] Rosemary Doran Work Phone: [facility] Work Phone: Start: 12-09-[address] Rosemary Doran Work Phone: [facility] Work Phone: Start: 12-05-2022 End: 12-05-[address] Rosemary Doran Work Phone: [facility] Work Phone: Start: 11-20-2022 End: 11-20-[address] Rosemary Doran Work Phone: [facility] Work Phone: Start: 11-20-2022 End: 11-20-[address] Rosemary Doran Work Phone: [facility] Work Phone: Start: 11-20-[address] Rosemary Doran Work Phone: [facility] Work Phone: Start: 11-18-2022 End: 11-18-2022 Emergency department patient visit Dr. Rosemary Doran Work Phone: [facility]-Emergency Department Work Phone: Start: 11-15-2022 Non-patient / Non-visit Dr. Slim Doran Work Phone: [facility] Work Phone: Start: 11-14-2022 Non-patient / Non-visit Dr. Slim Doran Work Phone: [facility] Start: 11-14-2022 Non-patient / Non-visit Dr. Slim Doran Work Phone: [facility] Work Phone: Start: 11-14-2022 End: 11-15-2022 Evaluation and management of inpatient Dr. Rosemary Doran Work Phone: [facility]Pro[facility] Work Phone: Start: 11-14-[address] Marcelo Doran Work Phone: [facility] Work Phone: Start: 10-23-2022 End: 10-23-[address] Rosemary Doran Work Phone: [facility] Work Phone: Start: 10-23-2022 End: 10-23-[address] Rosemary Doran Work Phone: [facility] Work Phone: Start: 10-22-2022 End: 10-22-[address] Rosemary Doran Work Phone: [facility] Work Phone: Start: 10-22-2022 End: 10-22-[address] Rosemary Doran Work Phone: [facility]-Physical Therapy Work Phone: Start: 10-22-[address] Sada Doran Work Phone: [facility] Work Phone: Start: 10-15-2022 End: 10-15-[address] Rsoemary Doran Work Phone: [facility] Work Phone: Start: 09-26-2022 Non-patient / Non-visit Dr. Slim Doran Work Phone: [facility] Start: 09-26-2022 End: 09-26-[address] Rosemary Doran Work Phone: [facility] Work Phone: Start: 09-26-2022 End: 09-26-[address] Rosemary Doran Work Phone: [facility] Work Phone: Start: 09-18-2022 End: 09-18-[address] Rosemary Doran Work Phone: [facility] Work Phone: Start: 09-18-2022 End: 09-18-[address] Rosemary Doran Work Phone: [facility] Start: 09-13-2022 End: 09-13-[address] Rosemary Doran Work Phone: [facility]-Laboratory Start: 09-08-2022 End: 09-08-2022 Emergency department patient [facility] Start: 09-06-2022 End: 09-06-[address] Rosemary Doran Work Phone: [facility] Start: 09-05-2022 End: 09-05-[address] Rosemary Doran Work Phone: [facility] Start: 08-08-2022 End: 08-08-[address] Rosemary Doran Work Phone: [facility] Start: 06-26-2022 End: 06-26-[address] Rosemary Doran Work Phone: [facility] Work Phone: Start: 06-26-2022 End: 06-26-[address] Rosemary Doran Work Phone: [facility] Start: 06-04-2022 End: 06-04-[address] Rosemary Doran Work Phone: [facility] Work Phone: Start: 06-04-2022 End: 06-04-[address] Rosemary Doran Work Phone: [facility] Start: 04-16-2022 End: 04-16-[address] Rosemary Doran Work Phone: [facility] Start: 02-11-2022 End: 02-11-2022 Emergency department patient visit Dr. Rosemary Doran Work Phone: [facility]-Emergency Department Start: 10-18-2021 End: 10-18-[address] Rosemary Doran Work Phone: [facility] Start: 10-12-2019 End: 10-12-2019 Refill Jo Perez Work Phone: [facility] Comment on above: Refill Request; Refi ll Request Start: 02-11-2018 Patient encounter ROSA ELENA AYALALALITHA Cai lity:[facility] Start: 01-05-2018 End: 01-05-2018 Patient encounter JO PEREZ Facility:[facility] Start: 07-21-2017 End: 07-21-2017 Patient encounter RICKEY CHAVARRIA Facility:[facility] Start: 07-15-2017 Patient encounter JO PEREZ Facility:[facility] Start: 07-07-2017 End: 07-07-2017 Patient encounter JO PEREZ Facility:[facility] Start: 06-27-2017 End: 06-27-2017 Patient encounter JO PEREZ Facility:[facility] Start: 06-11-2017 Patient encounter JO PEREZ Facility:[facility] Start: 02-01-2015 End: 02-01-2015 Patient encounter procedure Shi Lester Work Phone: [facility] Start: 02-01-2015 Results Only Shi ford Work Phone: [facility] Start: 04-17-2010 End: 04-17-2010 Patient encounter procedure Cruz Lemosvel Sanchez Work Phone: [facility] Start: 04-17-2010 Results Only Cruz Geiger Akanksha ipfabiano Work Phone: [facility] Start: 07-31-2009 End: 07-31-2009 Patient encounter procedure Clotilde Juradochastity Doss Work Phone: [facility] Start: 07-31-2009 Results Only Clotilde Stone David rabec Work Phone: [facility] Start: 05-07-2001 End: 05-07-2001 Patient encounter procedure Sae Hope Astrid Work Phone: [facility] Start: 05-07-2001 Results Only Sae Arnett Pap as Work Phone: [facility] Procedures Date Procedure Procedure Detail Performing Clinician Start: 12-24-[address] Anoop lange MD Work Phone: Start: 12-24-2024 Urnls dip stick/tabl et reagent auto microscopy Dr. Anoop Blackmon MD Work Phone: Start: 09-11-[address] Alexandra [...] quantitative blood xcpt reagent strip Connie Perez MEASUREMENT SUPERINTENDENT - ASSOCIATE THEATRE PROFESSOR Work Phone: Start: 06-20-2023 Prothrombin time Sonal Perez MEASUREMENT SUPERINTENDENT - ASSOCIATE THEATRE PROFESSOR Work Phone: Start: 06-19-2023 Glucose quantitative blood xcpt reagent strip Connie Perez MEASUREMENT SUPERINTENDENT - ASSOCIATE THEATRE PROFESSOR Work Phone: Start: 06-19-2023 Glucose quantitative blood xcpt reagent strip Connie Perez MEASUREMENT SUPERINTENDENT - [facility] Work Phone: Start: 06-19-2023 Glucose quantitative blood xcpt reagent strip Connie Perez MEASUREMENT SUPERINTENDENT - [facility] Work Phone: Start: 06-19-2023 Prothrombin time Sonal Perez MEASUREMENT SUPERINTENDENT - [facility] Work Phone: Start: 06-19-2023 Glucose quantitative blood xcpt reagent strip Connie Preez MEASUREMENT SUPERINTENDENT - [facility] Work Phone: Start: 06-19-2023 Basic metabolic pane l calcium total Connie Perez MEASUREMENT SUPERINTENDENT - [facility] Work Phone: Start: 06-18-2023 Glucose quantitative blood [...] metabolic pane l calcium total Connie Perez MEASUREMENT SUPERINTENDENT - [facility] Work Phone: Start: 06-17-2023 Glucose quantitative blood [...] Work Phone: Start: 06-16-2023 Antibody screen JAYSHREE FRIASKALA Comment on above: Performed By: #### L [id number] ####Smokehouse Worker: ALEXANDRA BUSTAMANTE ([id number])[facility] B[facility] ([address] Start: 06-16-2023 End: 06-16-2023 Radex shoulder [...] Date Care Activity Detail Author Start: 11-22-2024 End: 11-22-2024 Evaluation of diagnostic study results [facility] Start: 09-13-2024 Lamotrigine measurement [facility] Start: 09-13-2024 Measurement of substance [facility] Start: 09-11-2024 Patient discharge [facility] Start: 09-11-2024 Complete blood count [facility] Start: 09-10-2024 Following clinical p athway protocol [facility] Start: 09-10-2024 Transfusion of blood product [facility] Start: 09-10-2024 Aspiration precautions [facility] Start: 09-10-2024 Assessment of risk o f venous thromboembolism [facility] Start: 09-10-2024 Cardiac monitoring [facility] Start: 09-10-2024 Catheterization of vein [facility] Start: 09-10-2024 Consultation [facility] Start: 09-10-2024 Continuous pulse oximetry [facility] Start: 09-10-2024 Electroencephalogram [facility] Start: 09-10-2024 Elevation of head of bed [facility] Start: 09-10-2024 Exercises [facility] Start: 09-10-2024 Insertion of cathete r into peripheral vein [facility] Start: 09-10-2024 Notification of physician [facility] Start: 09-10-2024 Oxygen therapy [facility] Start: 09-10-2024 Patient referral to dietitian [facility] Start: 09-10-2024 Providing care accor ding to standard [facility] Start: 09-10-2024 Referral for physical therapy [facility] Start: 09-10-2024 Referral to occupati onal therapist [facility] Start: 09-10-2024 Referral to service [facility] Start: 09-10-2024 Speech therapy assessment [facility] Start: 09-10-2024 Telemedicine consult ation with patient [facility] Start: 09-10-2024 Tobacco use cessatio n education [facility] Start: 09-10-2024 Vital signs measurements [facility] Start: 09-10-2024 End: 09-10-2024 [facility] Start: 09-10-2024 Verification routine [facility] Start: 09-10-2024 MRI of brain without contrast Brain without Contrast [facility] Start: 09-10-2024 Admission procedure [facility] Start: 09-10-2024 [facility] Start: 09-10-2024 Bacteria identified in Urine by Culture Urine Culture [facility] Start: 09-10-2024 Urine culture [facility] Start: 09-10-2024 Oxygen therapy [facility] Start: 09-10-2024 [facility] Start: 09-08-2024 Lamotrigine measurement [facility] Start: 01-06-2024 Urine microalbumin profile DTA P,TDAP,TD (1 - Tdap) [facility] Comment on above: Postponed from 06/23 (Declined at this time) Start: 07-28-2023 ADVANCE DIRECTIVE DISCUSSION A DVANCE DIRECTIVE DISCUSSION [facility] Start: 06-16-2023 Application long arm splint shoulder hand APPLY LONG ARM SPLINT [facility] Start: 06-16-2023 [facility] Start: 03-31-2023 Medicare Advantage A nnual Wellness Visit Medicare Advantage Annual Wellness Visit [facility] Start: 01-20-2023 Serum immunofixation [facility] Start: 01-20-2023 Urine immunofixation [facility] Start: 12-28-2022 Patient discharge [facility] Start: 12-28-2022 [facility] Start: 12-27-2022 Following clinical p athway protocol [facility] Start: 12-27-2022 Assessment of risk o f venous thromboembolism [facility] Start: 12-27-2022 Catheterization of vein [facility] Start: 12-27-2022 Incentive spirometry [facility] Start: 12-27-2022 Inhalation therapy procedure [facility] Start: 12-27-2022 Insertion of cathete r into peripheral vein [facility] Start: 12-27-2022 Measuring intake and output [facility] Start: 12-27-2022 Neurological assessment [facility] Start: 12-27-2022 Providing care accor ding to [facility] Start: 12-27-2022 Provision of activit y privileges [facility] Start: 12-27-2022 Referral to occupati onal therapist [facility] Start: 12-27-2022 Referral to service [facility] Start: 12-27-2022 Speech therapy assessment [facility] Start: 12-27-2022 [facility] Start: 12-27-2022 Admission procedure [facility] Start: 11-15-2022 Patient discharge [facility] Start: 11-15-2022 Blood chemistry [facility] Start: 11-14-2022 Following clinical p athway protocol [facility] Start: 11-14-2022 Assessment of risk o f venous thromboembolism [facility] Start: 11-14-2022 Cardiac monitoring [facility] Start: 11-14-2022 Catheterization of vein [facility] Start: 11-14-2022 Continuous pulse oximetry [facility] Start: 11-14-2022 Elevation of head of bed [facility] Start: 11-14-2022 Exercises [facility] Start: 11-14-[address] anned interventions [facility] Start: 11-14-2022 Insertion of cathete r into peripheral vein [facility] Start: 11-14-2022 Measuring intake and output [facility] Start: 11-14-2022 MRI of brain without contrast Brain without Contrast [facility] Start: 11-14-2022 Notification of physician [facility] Start: 11-14-2022 Oxygen therapy [facility] Start: 11-14-2022 Patient referral to dietitian [facility] Start: 11-14-2022 Providing care accor ding to [facility] Start: 11-14-2022 Referral to occupati onal therapist [facility] Start: 11-14-2022 Referral to service [facility] Start: 11-14-2022 Speech therapy assessment [facility] Start: 11-14-2022 Tobacco use cessatio n education [facility] Start: 11-14-2022 [facility] Start: 11-14-2022 Verification routine [facility] Start: 11-14-2022 Admission procedure [facility] Start: 11-14-2022 Patient referral to dietitian [facility] Start: 09-18-2022 Patient referral [facility] Work Phone: Start: 09-18-2022 [place] and lambda light chains [facility] Start: 09-18-2022 Thiamine measurement [facility] Start: 09-17-2022 [facility] Start: 03-26-2020 Hepatitis B screening URINE ALBUMIN:CREATININE RATIO [facility] Start: 03-26-2020 Hepatitis B surface antibody level LDL CHOLESTEROL [facility] Start: 11-30-2019 Influenza vaccination INFLUENZA (#1) [facility] Start: 10-01-2019 [object Object] [facility] Start: 09-25-2019 HbA1c (Bld) [Mass fraction] HBA1C [facility] Start: 07-07-2018 Hepatitis C antibody , confirmatory test DILATED RETINAL EXAM [facility] Start: 07-20-2013 DTaP/Tdap/Td Vaccine s (1 - Tdap) DTaP/Tdap/Td Vaccines (1 - Tdap) [facility] Start: 12-05-2010 SHINGRIX VACCINE (2 of 3) CONTRERAS GRIX VACCINE (2 of 3) [facility] Start: 12-05-2010 Zoster Vaccines (2 of 3) Zoste r Vaccines (2 of 3) [facility] Start: 1995 RSV Immunization age d 60 or older (1 - 1-dose 60+ series) RSV Immunization aged 60 or older (1 - 1-dose 60+ series) [facility] Start: 1947 Depression Screening Depression Scre ening [facility] Start: 1935 Screening for osteoporosis Bone Dens ity Scan [facility] Albumin [Moles/volum e] in Serum or Plasma [facility] Albumin/Globulin ratio [facility] Anion gap in Serum or Plasma [facility] Anion gap measurement [facility] Ankle brachial pressure index [facility] Blood ammonia measurement [facility] Blood ammonia measurement [facility] BUN/Creatinine ratio [facility] BUN/Creatinine ratio [facility] Calcium [Mass/volume ] in Serum or Plasma [facility] Calcium [Mass/volume ] in Serum or Plasma [facility] Carbon dioxide, tota l [Moles/volume] in Central venous blood [facility] Carbon dioxide, tota l [Moles/volume] in Serum or Plasma [facility] Chloride [Moles/volu me] in Serum or Plasma [facility] Cholesterol [Mass/vo lume] in Serum or Plasma [facility] Cholesterol [Mass/vo lume] in Serum or Plasma [facility] Cholesterol in HDL [Mass/volume] in Serum or Plasma [facility] Cholesterol in HDL [Mass/volume] in Serum or Plasma [facility] Cholesterol in LDL [Mass/volume] in Serum or Plasma [facility] Creatinine [Mass/vol ume] in Serum or Plasma [facility] Creatinine [Moles/vo lume] in Serum or Plasma [facility] Electrophoresis: [id number] [facility] Electrophoresis: andrew ma globulin [facility] Erythrocyte mean cor puscular volume determination [facility] Globulin measurement [facility] Glucose [Mass/volume ] in Serum or Plasma [facility] Glucose [Mass/volume ] in Serum or Plasma [facility] Hematocrit [Volume F raction] of Blood [facility] Hematocrit [Volume F raction] of Blood [facility] Hemoglobin [Mass/vol ume] in Blood [facility] Hemoglobin [Mass/vol ume] in Blood [facility] Hepatic function panel [facility] IgA [Mass/volume] in Serum or Plasma [facility] IgG [Mass/volume] in Serum or Plasma [facility] IgM [Mass/volume] in Serum or Plasma [facility] [place]/lambda light c nat ratio [facility] Lambda light chains. free [Mass/volume] in Serum or Plasma [facility] Lamotrigine measurement [facility] Leukocytes [#/volume ] in Blood [facility] Leukocytes [#/volume ] in Blood [facility] Lipid 1996 panel - S mile or Plasma [facility] Low density lipoprot ein cholesterol measurement [facility] Mean corpuscular hem oglobin concentration determination [facility] Mean corpuscular hem oglobin concentration determination [facility] Mean corpuscular hem oglobin determination [facility] Mean corpuscular hem oglobin determination [facility] Measurement of renal function [facility] Measurement of renal function [facility] MR Cervical spine [facility] MR Lumbar spine [facility] Neutrophil count [facility] Neutrophil percent differential count [facility] Patient Education [facility] Work Phone: Patient referral [facility] Work Phone: Platelets [#/volume] in Blood [facility] Platelets [#/volume] in Blood [facility] Potassium [Moles/vol ume] in Serum or Plasma [facility] Potassium measurement [facility] Protein electrophore sis panel - Serum or Plasma [facility] Red blood cell count [facility] Red blood cell count [facility] Red cell distributio n width determination [facility] Red cell distributio n width determination [facility] Serum chloride measurement [facility] Serum protein electrophoresis [facility] Sodium [Moles/volume ] in Serum or Plasma [facility] Sodium measurement [facility] Total cholesterol:HD L ratio measurement [facility] Triglycerides measurement [facility] Triglycerides measurement [facility] Troponin T.cardiac [Mass/volume] in Serum or Plasma by High sensitivity method [facility] Troponin T.cardiac [Mass/volume] in Serum or Plasma by High sensitivity method [facility] Urea nitrogen [Mass/ volume] in Serum or Plasma [facility] Urea nitrogen [Mass/ volume] in Serum or Plasma [facility] Urine culture Urine Culture [facility] Urine kappa light ch ain measurement [facility] US Carotid arteries [facility] VLDL cholesterol measurement [facility] VLDL cholesterol measurement [facility] Hernandez [facility] Immunizations Immunization Date Immunization Notes Care Provider Fa cility 06-02-2020 Steph (Santi) Dr. Rosemary mixon Work Phone: [facility] 05-05-2020 Steph (Moderna) Dr. Rosemary mixon Work Phone: [facility] 04-27-2019 influenza, high dose seasonal, preservative-free Alexia Adamsi [facility] 01-05-2018 influenza, high dose seasonal, preservative-free Alexia Adamsi [facility] 12-12-2014 influenza, seasonal, [facility]able [facility]2014 pneumococcal conjuga te vaccine, 13 valent [facility] 12-06-2013 influenza, seasonal, injectable [facility] 07-19-2013 tetanus and diphther ia toxoids, adsorbed, preservative free, for adult use (2 Lf of tetanus toxoid and 2 Lf of diphtheria toxoid) [facility] 01-25-2013 influenza, seasonal, injectable [facility] 01-13-2012 influenza, seasonal, injectable [facility] 02-11-2011 influenza, seasonal, injectable [facility] 10-10-2010 zoster vaccine, live Jo Martinez [facility] 03-31-2006 pneumococcal polysaccharide vaccine, 23 valent [place] Payers Date Payer Category Payer Self-pay [id number] 2023 Medicare [employer] MEDICARE UHC AARP MEDICARE ADVANTAGE [id number] 2023-Present [phone] [address] [address] [place] [address] Medicare HMO [id number] [id number] 2023 Unknown [id number] 2005 Unknown [id number] .2.840.425842.1.13.159.2.7.3 .389316.315 1935 Unknown [id number] 2.16.840.1.465172.3.579.2.278 1935 Unknown [id number] 2.16.840.1.729233.3.579.2.278 1935 Unknown [id number] 2.16.840.1.871928.3.579.2.278 1935 Unknown [id number] 2.16.840.1.456518.3.579.2.278 1935 Unknown [id number] 2.840.1.200424.3.579.2.278 1935 Unknown [id number] 2.840.1.212831.3.579.2.278 1935 Unknown [id number] 2.840.1.291962.3.579.2.278 Medicare MEDICARE PART A B [id number] Unknown [id number] Unknown [id number] 2.840.1.209193.3.579.2.462 Unknown [id number] 2.840.1.341605.3.579.2.462 Unknown [id number] 2.840.1.350679.3.579.2.462 Unknown [id number] 2.840.1.707085.3.579.2.462 Unknown [id number] 2.840.1.155974.3.579.2.462 Unknown [id number] 2.16840.1.954214.3.579.2.462 Unknown [id number] 2.16840.1.487660.3.579.2.462 Unknown [id number] 2.16840.1.022723.3.579.2.462 Unknown [id number] 2.16.840.1.548825.3.579.2.462 Unknown [id number] 2.16.840.1.000049.3.579.2.462 Unknown [id number] 2.16.840.1.178631.3.579.2.462 Unknown [id number] 2.16.840.1.463072.3.579.2.462 Unknown [id number] 2.16.840.1.911387.3.579.2.462 Unknown [id number] 2.16.840.1.391710.3.579.2.462 Unknown [id number] 2.16.840.1.482711.3.579.2.462 Unknown [id number] 2.16.840.1.494220.3.579.2.462 Unknown [id number] 2.16840.1.133640.3.579.2.462 Unknown [id number] 2.16.840.1.434472.3.579.2.462 Unknown [id number] 2.16.840.1.091484.3.579.2.462 Unknown [id number] 2.16.840.1.593403.3.579.2.462 Unknown [id number] 2.16.840.1.113541.3.579.2.462 Unknown [id number] 2.16840.1.818366.3.579.2.462 Unknown [id number] 2.16.840.1.253205.3.579.2.462 Unknown [id number] 2.16.840.1.409571.3.579.2.462 Unknown [id number] 2.16.840.1.054492.3.579.2.462 Unknown [id number] 2.16.840.1.953322.3.579.2.462 Unknown [id number] 2.16.840.1.929839.3.579.2.462 Unknown [id number] 2.16.840.1.973566.3.579.2.462 Unknown [id number] 2.16.840.1.544673.3.579.2.462 Unknown [id number] 2.16.840.1.831524.3.579.2.462 Unknown [id number] 2.16.840.1.424471.3.579.2.462 Unknown [id number] 2.16.840.1.951161.3.579.2.462 Unknown [id number] 2.16.840.1.704042.3.579.2.462 Unknown [id number] 2.16.840.1.793249.3.579.2.462 Unknown [id number] 2.16.840.1.076602.3.579.2.462 Unknown [id number] 2.16.840.1.233394.3.579.2.462 Unknown [id number] 2.16.840.1.114269.3.579.2.462 Unknown [id number] 2.16.840.1.731988.3.579.2.462 Unknown [id number] 2.16.840.1.670338.3.579.2.462 Unknown [id number] 2.16.840.1.467963.3.579.2.462 Unknown [id number] 2.16.840.1.862611.3.579.2.462 Unknown [id number] 2.16840.1.791305.3.579.2.462 Social History Date Type Detail Facility Start: 05-13-2019 End: 09-11-2024 Tobacco smoking status NHIS Former smoker [facility] End: 03-20-2008 History of tobacco use Current smoker [facility] End: 03-20-2008 History of tobacco use Cigarette Smoker [facility] Start: 05-13-2019 End: 06-17-2023 Cigarettes smoked current (pack per day) - Reported [facility] Start: 05-13-2019 End: 06-18-2023 Tobacco use and exposure Never used [facility] Start: 05-13-2019 Alcohol intake 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) [facility] Start: 1935 Sex Assigned At Not on file [facility] Exposure to SARS-CoV -2 (event) Not sure [facility] Start: 02-11-2022 End: 06-16-2023 Tobacco smoking status NHIS Unknown if ever smoked [facility] Start: 04-19-2020 Rare [facility] Start: 04-19-2020 None [facility] Start: 04-19-2020 Spouse/ Signif icant Other [facility] Start: 08-11-2020 Non-smoker [facility] Start: 1935 Sex Assigned At Female [facility] Start: 06-18-2023 Tobacco smoking stat us NHIS Never smoked tobacco [employer] Start: 06-17-2023 End: 06-18-2023 [facility] [employer] Has the [employer], or sezmi threatened to shut off services in your home in past 12Mo No [employer] How often to you hav e a drink containing alcohol? Never [facility] How many standard drinks containing alcohol do you have on a typical day? Patient does not drink [employer] (I/We) worried wheth er (my/our) food would run out before (I/we) got money to buy more. Never true [employer] Start: 06-04-2024 End: 07-20-2024 Sex Female (finding) [facility] Medical Equipment Procedure Code Equipment Code [...] instructed [employer] Cancellous 30cc 1-8 - [id number] - [id number] Start: 06-18-2023 Plate Hum Dist 2.7/3.5 83953_imp Start: 06-18-2023 Plate Va Olcrn 2.7/3.5 2h R - [id number]_imp Start: 06-18-2023 Plate Va M-D-Hum 2.7/3.5 1h L - [id number]_imp Start: 06-18-2023 Screw Lck Va 2.5e33q-D T8 Rcs - [id number]_imp Start: 06-18-2023 Screw Lck Va 2.7x58 S-T T8 Rcs - [id number] 83965_imp Start: 06-18-2023 Screw Lck Va 2.1d42i-P T8 Rcs - [id number] 83966_imp Start: 06-18-2023 Screw Lck Va 2.4m92v-F T8 Rcs - [id number] 83967_imp Start: 06-18-2023 Screw Lck Va 2.2o70t-M T8 Rcs - [id number] 83968_imp Start: 06-18-2023 Screw Lck Va 2.7x50 S-T T8 Rcs - [id number] 83969_imp Start: 06-18-2023 Screw Crtx 3.5x22mm S-T - [id number]_imp Start: 06-18-2023 Screw Crtx 3.5x26mm S-T - [id number]_imp Start: 06-18-2023 Screw Lck Va 2.9x66t-C T8 Rcs - [id number] 83975_imp Start: 06-18-2023 Screw Lck Va 2.1x61j-N T8 Rcs - [id number] 83976_imp Start: 06-18-2023 Screw Lck Va 2.7x56 S-T T8 Rcs - [id number] 83956_imp Start: 06-18-2023 Screw Crtx 3.5x28mm S-T - [id number] 83957_imp Start: 06-18-2023 Screw Crtx 3.5x30mm S-T - [id number] 83958_imp Start: 06-18-2023 Screw Lck Va 2.7c36a-D T8 Rcs - [id number] 83959_imp Start: 06-18-2023 Screw Lck Va 2.1f61d-I T8 Rcs - [id number] 83961_imp Start: 06-18-2023 Goals Date Patient Goal Desired Activity /State Functional Status Date Assessment Result Facility 09-11-2024 Functional status Ambulates [facility] Work Phone: 12-28-2022 Functional status Ambulates [facility] Work Phone: 11-15-2022 Functional status Chair [facility] Work Phone: Mental Status Date Assessment Result Facility 09-11-2024 Cognitive function Voice/Name [facility] Work Phone: 09-10-2024 Cognitive function Voice/Name [facility] Work Phone: 09-08-2024 Cognitive function Voice/Name [facility] Work Phone: 12-28-2022 Cognitive function Voice/Name [facility] Work Phone: 11-18-2022 Cognitive function Level Of Cons ciousness Awake;Alert;Appropriate [facility] Work Phone: 11-15-2022 Cognitive function Appropriate;Cooperativ e [facility] Work Phone: 11-14-2022 Cognitive function Voice/Name [facility] Work Phone: 11-14-2022 Cognitive function Voice/Name [facility] Work Phone: 09-08-2022 Cognitive function Awake;Alert;A ppropriate;Follow s Commands [facility] Work Phone: 02-11-2022 Cognitive function Awake;Alert;Appropriat e [facility] Work Phone: Clinical Notes 02-14-2007 to 09-11-2024 Note Date & Type Note Facility 09-11-2024 Discharge summary [facility] 09-11-2024 Procedure note [facility] 09-11-2024 Discharge summary [facility] 09-11-2024 Discharge summary Note Date/Time September 11, 2024 2:40pm [facility] Medical Records Department [address] [place] [address] Instructions for Home/Discharge Instructions 09/11/24 1214 MR#: [id number] Acct: [id number] Name: EZRA GONZALEZ Rep #:[id number] : 1935 89 From: Matthew carbajal DO [...] Aura Thurman DO; Ashu Leonard MD ~ [facility] Work Phone: 1(127) 641-368506-14-2025 Discharge summary Author [facility] Note Date/Time September 11, 2024 3:14 pm [facility] Medical Records Department [address] [place] [address] Discharge Summary 09/11/24 1214 MR#: [id number] Acct: [id number] Name: EZRA GONZALEZ Rep #:[id number] : 1935 89 From: Matthew carbajal DO PCP: Dr. Kvng Ochoa DO Status:ADM MARIELOS Location: [facility] [id number] Providers Date of Admission: 09/10/24 Date [...] is an 89-year-old female who presented to [facility] ED on 09/10/2024 with dysarthria. 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 Kvng Ochoa DO ~* Signed [facility] Work Phone: 1(646) 888-938406-14-2025 Progress note Author Lenin Tamez [facility] Note Date/Time September 11, 2024 10:4 1am [facility] Medical Records Department [address] [place] [address] Progress Note - Neurology 09/11/24 1035 MR#: [id number] Acct: [id number] Name: EZRA GONZALEZ Rep #:[id number] : 1935 89 From: Lenin Morel PCP: Dr. Kvng Ochoa DO Status:ADM MARIELOS Location: [place] [address] Assessment and Plan: Neuro Assessment/Plan Telestroke (Audio/Video [...] ICA 60% and diffuse narrowing of left TABLE INSPECTOR. MRI brain - no acute stroke. LDL-100 Diagnosis: TIA Plan: Continue coumadin and statin. Check A1c. Follow up EEG. Continue lamictal.Follow up with neurology as an outpatient. 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 Sign off for now and please call [...] days ago was 2.9 and 2.4 at [place]) and seizure on lamictal (had last GTC on Friday) p/w transient dysarthria. History is obtained from patient. On my exam, NIHSS-0 and patient reports feeling better. She follows with Dr. Juarez with neurology. CT head- no acute intracranial process. CTA- no LVO with b/l ICA 60% and diffuse narrowing of left TABLE INSPECTOR. MRI brain - no acute stroke. Today, [...] (Auto) 72.3 H, Lymph % (Auto) 16.6 L,[place] % (Auto) 9.1, Eos % (Auto) 1.2, [...] Clarity Clear, Urine pH 5.0, Ur Specific [place] 1.010, Urine Protein 30 H, Urine Glucose [...] Catch Urine Culture - Preliminary GNR lactose domestic technician Radiography Diagnostic Testing: Radiology Impression Brain CT [...] Atrophy and mild microvascular changes [facility] Rhythm Strip Rhythm Strip: A-fib Rate: 75 [...] and with change in RN caregiver. Freq: [id number] Protocol: Activity Type Activity Date Activity User E-sign Co-sign Detail Recorded Client Recorded Date Recorded By Document 09/11/24 09:08 YOVANY [id number] 09/11/24 09:08 ZBENJAMIN 09/11/24 09:08 NIH Stroke Scale [NIHSS] A [...] Cosigner Signature (if applicable): CC: ~ Signed [facility] Work Phone: 1(861) 758-681306-14-2025 [facility] Medical Records Department [address] [place] [address] Discharge Summary 09/11/24 1214 MR#: [id number] Acct: [id number] Name: EZRA GONZALEZ Rep #: [id number] : 1935 89 From: Matthew Oro DO PCP: Dr. Kvng Ochoa DO Status:ADM MARIELOS [id number] Prov[facility] Date of Admission: 09/10/24 Date of [...] is an 89-year-old female who presented to [facility] ED on 09/10/2024 with dysarthria. Short [...] and non- distended Anastasia (more content not included)...[facility]06-14-2025 Progress note [facility] Medical Records Department [address] [place] [address] Progress Note - Neurology 09/11/24 1035 MR#: [id number] Acct: [id number] Name: EZRA GONZALEZCELYN Rep #:[id number] : 1935 89 From: Lenin Morel PCP: Dr. Kvng Ochoa, DO Status:ADM MARIELOS Location: [place] [address] Assessment and Plan: Neuro Assessment/Plan Telestroke (Audio/Video [...] ICA 60% and diffuse narrowing of left TABLE INSPECTOR. MRI brain - no acute stroke. LDL-100 Diagnosis: TIA Plan: Continue coumadin and statin. Check A1c. Follow up EEG. Continue lamictal.Follow up with neurology as an outpatient. 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 Sign off for now and please call [...] days ago was 2.9 and 2.4 at [place]) and seizure on lamictal (had last GTC on Friday) p/w transient dysarthria. History is obtained from patient. On my exam, NIHSS-0 and patient reports feeling better. She follows with Dr. Juarez with neurology. CT head- no acute intracranial process. CTA- no LVO with b/l ICA 60% and diffuse narrowing of left TABLE INSPECTOR. MRI brain - no acute stroke. Today, [...] %(Auto) 72.3 H, Lymph % (Auto) 16.6 L,[place] % (Auto) 9.1, Eos % (Auto) 1.2, [...] Clarity Clear, Urine pH 5.0, Ur Specific [place] 1.010, Urine Protein 30 H, Urine Glucose [...] Catch Urine Culture - Preliminary GNR lactose domestic technician Radiography Diagnostic Testing: Radiology Impression Brain CT 09/10/24 13:55 IMPRESSION: CHRONIC CHANGES. NO ACUTE FINDINGS. Red Alert: Chronic changes. The critical information above was relayed directly by me by telephone to Teri Garcia on 09/10/2024 at 2:05 pm with readback verification. Reading Location: [id number] Head/Neck CTA 09/10/24 13:55 IMPRESSION: Calcific plaque [...] 3:01 pm with readback verification. Reading Location: IMKE Brain MRI 09/10/24 16:07 IMPRESSION: Atrophy and mild microvascular changes Reading Location[facility] Rhythm Strip Rhythm Strip: A-fib Rate: [...] and with change in RN caregiver. Freq: [id number] Protocol: Activity Type Activity Date Activity User E-sign Co-sign Detail Recorded Client Recorded Date Recorded By Document 09/11/24 09:08 YOVANY [id number] 09/11/24 09:08 YOVANY 09/11/24 09:08 NIH Stroke [...] Cosigner Signature (if applicable): CC: ~ Signed [facility]06-13-2025 History and physical note Author Matthew Oro [facility] Note Date/Time September 10, 2024 5:27 pm [facility] Medical Records Department [address] [place] [address] H&P Exam - Hospitalist 09/10/24 1603 MR#: [id number] Acct: [id number] Name: EZRA GONZALEZ Rep #:[id number] : 1935 89 From: Matthew carbajal DO PCP: Dr. Kvng Ochoa, DO Status:ADM MARIELOS Location: [place] [address] HPI - General General Date of Admission: 09/10/24 Date of Service: 09/10/24 Chief Complaint: Dysarthria HPI Narrative EZRA LISA, is a 89 F who presented to [facility] ED on 09/10/2024 with dysarthria. Patient lives at assisted living at [place]. Has history of seizures and is on [...] any other acute concerns at this time. 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 Reading Location: [id number] Head/Neck CTA 09/10/24 13:55 IMPRESSION: Calcific plaque [...] 3:01 pm with readback verification. Reading Location: [id number] Assessment & Plan Assessment/Plan (1) Difficulty with speech: PLAN: Plan Patient is an 89-year-old female who presented to [facility] ED on 09/10/2024 with dysarthria. 1. [...] 55 minutes. Charges/Coding Visit Charges Inpatient E&M: 67436 Init Hosp L2 09/10/24 1727 <Electronically signed by Matthew Oro DO> Cosigner Signature (if applicable): CC: Dr. Matthew Oro DO; Dr. Kvng Ochoa DO~ Signed [facility] Work Phone: 1(613) 172-649106-13-2025 Discharge summary Author Teri [facility] Note Date/Time September 10, 2024 4:17 pm [facility] Medical Records Department [address] [place] [address] Emergency Department Summary 09/10/24 MR#: [id number] Acct: [id number] Name: EZRA GONZALEZ Rep #:[id number] : 1935 89 From: Teri Echeverria PCP: [...] speech changes. I spoke to her son Wilferdo (her eldest son) phone number [phone]. He states that she follows with Dr. 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 He also tells me that he talk to her about 615 this morningand she seemed a little off with her mentation as well as her pronunciation. 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 Level of Consciousness: [...] No aphasia; normal 10. Dysarthria: 1 = Bsou-qp-ncslbtcs dysarthria; 11. Extinction and Inattention: 0 - [...] problems, contact your Primary Care Provider. Call [facility] ([phone]) or report to the closest Emergency Room. Call 911 if necessary. 09/10/24 1617 <Electronically signed by Teri Garcia DO> Cosigner Signature (if applicable): CC: Dr. 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 2:04pm Urinary tract infection acute [facility] 2024 2:04pm Transient ischemic attack resolved September 13, 2024 2:04pm USP current use of anticoagulant acute November 22 8:14am Lower extremity edema acute Oct 8:14am Atherosclerotic heart diseas e of [place] coronary artery without angina pectoris chronic November 22 8:14am Essential (primary) hypertension chr November 22, 2024 8:14am Hyperlipidemia chronic October 8:14am [facility] Work Phone: 1(155) 889-682406-13-2025 Evaluation note* Diagnosis Onset Date Resolution Status Admit Date Difficulty with speech resolved Ju ne 2024 4:03pm Dementia acute September 13 2:04pm 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 2:04pm Urinary tract infection acute [facility] 2024 2:04pm Transient ischemic attack resolved September 13, 2024 2:04pm USP current use of anticoagulant acute November 22 8:14am Lower extremity edema acute Oct 8:14am Persistent atrial fibrillation acute November 22, 2024 8:14am Atherosclerotic heart diseas e of [place] coronary artery without angina pectoris chronic November 22 8:14am Essential (primary) hypertension chr November 22, 2024 8:14am Hyperlipidemia chronic October 8:14am [facility] Work Phone: 1(436) 767-204706-13-2025 History and physical note [facility] Medical Records Department [address] [place] [address] H&P Exam - Hospitalist 09/10/24 1603 MR#: [id number] Acct: [id number] Name: EZRA GONZALEZ Rep #:[id number] : 1935 89 From: Matthew carbajal DO PCP: Dr. Kvng Ochoa, DO Status:ADM MARIELOS Location: [place] [address] HPI - General General Date of Admission: 09/10/24 Date of Service: 09/10/24 Chief Complaint: Dysarthria HPI Narrative EZRA GONZALEZ, is a 89 F who presented to [facility] ED on 09/10/2024 with dysarthria. Patient lives at assisted living at [place]. Has history of seizures and is on [...] any other acute concerns at this time. 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 Reading Location: [id number] Head/Neck CTA 09/10/24 13:55 IMPRESSION: Calcific plaque [...] 3:01 pm with readback verification. Reading Location: [id number] Assessment & Plan Assessment/Plan (1) Difficulty with speech: PLAN: Plan Patient is an 89-year-old female who presented to [facility] ED on 09/10/2024 with dysarthria. 1. [...] 55 minutes. Charges/Coding Visit Charges Inpatient E&M: 29639 Init Hosp L2 09/10/24 1727 Cosigner Signature (if applicable): CC: Dr. Matthew Oro DO; Dr. Kvng Ochoa DO~ Signed [facility]06-13-2025 Discharge summary [facility] Medical Records Department [address] [place] [address] Emergency Department Summary 09/10/24 MR#: [id number] Acct: [id number] Name: EZRA GONZALEZ Rep #:[id number] : 1935 89 From: Teri Echeverria PCP: [...] son Wilfredo (her eldest son) phone number [phone]. He states that she follows with Dr. 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 He also tells me that he talk to her about 615 this morningand she seemed a little off with her mentation as well as her pr onunciation. 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 Reading Location: [id number] Head/Neck CTA 09/10/24 13:55 IMPRESSION: Calcific plaque [...] 3:01 pm with readback verification. 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 Level of Consciousness: 0 [...] No aphasia; normal 10. Dysarthria: 1 = Tori-yh-vawkmlay dysarthria; 11. Extinction and Inattention: 0 - [...] your Primary Care Provider. Call [facility] ([phone]) or report tothe closest Emergency Room. Call 911 if necessary. 09/10/24 1617 Cosigner Signature (if applicable): CC: Dr. Kvng Ochoa DO ~ Signed [facility]06-13-2025 Radiology Diagnostic study note [facility] Imaging Services [address] [place], [place] [address] STROKE CTA Head AND Neck W/Con MR#: [id number] Acct: [id number] Name: EZRA GONZALEZ Rep #: [id number] : 1935 F 89 From: Jian Gipson MD PCP: Dr. Kvng Ochoa DO Status: REG ER Study:STROKE CTA Head AND Neck W/Con Date of Exam: 09/10/24 Exam# [id number] Ordering Dr: Adeel Garcia DO PROCEDURE: STROKE [...] RIGHT Vertebral: Unremarkable. LEFT Vertebral: Unremarkable. Anatomy: [place] anatomy is normal. Aneurysm or [...] 3:01 pm with readback verification. Reading Location: [id number] CC: Dr. Teri Garcia DO; Dr. Kvng Ochoa DO ~ Fish Smoker: Signed [facility]06-13-2025 Radiology Diagnostic study note [facility] Imaging Services [address] [place], [place] [id number] STROKE Brain/Head without Cont MR#: [id number] Acct: [id number] Name: EZRA GONZALEZ Rep #: [id number] : 1935 F 89 From: Jian Gipson MD PCP: Dr. Kvng Ochoa DO Status: REG ER Study:STROKE Brain/Head without Cont Date of Exam: 09/10/24 Exam# [id number] Ordering Dr: Adeel Garcia DO PROCEDURE: STROKE [...] 2:05 pm with readback verification. Reading Location: [id number] CC: Dr. Teri Garcia DO; Dr. 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 Glucose is slight [id number] with a normal CO2 anion gap. Labs: Laboratory Results - last 24 hr 09/08/24 12:50 WBC 13.6 H RBC 4.40 Hgb 13.8 Hct 41.4 MCV 94.1 MCH 31.4 MCHC 33.3 RDW Std Deviation 45.2 H RDW Coeff of Sumeet 13.2 Plt Count 326 MPV 10.8 Immature Gran % (Auto) 0.400 Neut % (Auto) 75.9 H Lymph % (Auto) 16.2 L [place] % (Auto) 6.6 Eos % (Auto) 0.7 [...] with her neurologist Dr. Juarez Print Language: [place] Disposition Disposition: Home, Self Care What to do if you have Problems For any increased pain, shortness of breath, bleeding, nausea or vomiting, chestpain, or any unexpected problems, contact your Primary Care Provider. Call [facility] ([phone]) or report tothe closest Emergency Room. Call 911 if necessary. 09/08/24 0120 Cosigner Signature (if applicable): CC: Dr. Kvng Ochoa MD ~ Signed [facility]06-11-2025 Discharge summary Author Anoop Blackmon [facility] Note Date/Time September 08, 2024 3:16 pm [facility] Medical Records Department [address] [place] [address] Emergency Department Summary 09/08/24 MR#: [id number] Acct: [id number] Name: EZRA GONZALEZ Rep #:[id number] : 1935 89 From: Anoop Blackmon MD [...] Spinal stenosis Osteoarthritis Atherosclerotic heart disease of [place] coronary artery without angina pectoris Type 2 [...] creatinine ratio of 35:1. Glucose is slight [id number] with a normal CO2 anion gap. Labs: Laboratory Results - last 24 hr 09/08/24 12:50 WBC 13.6 H RBC 4.40 Hgb 13.8 Hct 41.4 MCV 94.1 MCH 31.4 MCHC 33.3 RDW Std Deviation 45.2 H RDW Coeff of [place] 13.2 Plt Count 326 MPV 10.8 Immature Gran % (Auto) 0.400 Neut % (Auto) 75.9 H Lymph % (Auto) 16.2 L [place] % (Auto) 6.6 Eos % (Auto) 0.7 [...] with her neurologist Dr. Juarez Print Language: Australian Disposition Disposition: Home, Self Care What to do if you have Problems For any increased pain, shortness of breath, bleeding, nausea or vomiting, chestpain, or any unexpected problems, contact your Primary Care Provider. Call [facility] ([phone]) or report to the closest Emergency Room. Call 911 if necessary. 09/08/24 9781 <Electronically signed by Anoop Blackmon MD> Cosigner Signature (if applicable): CC: Dr. Kvng Ochoa MD ~ Signed [facility] Work Phone: 1([phone]) 902-794404-03-2025 Evaluation note* Diagnosis Onset Date Resolution Status Admit Date Longstanding persistent atrial fibrillation acute July 01, 025 10:35am Essential (primary) hypertension chronic July 01, 2024 10:35am History of coronary artery stent placement February 14, 2007 resolved July 01, 025 10:35am [facility] Work Phone: 1([phone]) 397-376004-03-2025 Evaluation note* Diagnosis Onset Date Resolution Status Admit Date Longstanding persistent atrial fibrillation acute July 01, 025 10:35am Essential (primary) hypertension chronic July 01, 2024 10:35am History of coronary artery stent placement February 14, 2007 resolved July 01 025 10:35am Difficulty with speech acute [facility] 2024 4:03pm [facility] Work Phone: 1([phone]) 160-475204-03-2025 Evaluation note* Diagnosis Onset Date Resolution Status Admit Date Longstanding persistent atrial fibrillation acute July 01, 025 10:35am Essential (primary) hypertension chronic July 01, 2024 10:35am History of coronary artery stent placement February 14, 2007 resolved July 01 025 10:35am Difficulty with speech acute [facility] 2024 4:03pm 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 2:04pm [facility] Work Phone: [phone] Evaluation note* Diagnosis Onset Date Resolution Status Admit Date Longstanding persistent atrial fibrillation acute July 01, 025 10:35am Essential (primary) hypertension chronic July 01, 2024 10:35am History of coronary artery stent placement February 14, 2007 resolved July 01 025 10:35am Difficulty with speech resolved [facility] 2024 4:03pm 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 2:04pm [facility] Work Phone: [phone]) 399-603002-10-2025 Evaluation note* Diagnosis Onset Date Resolution Status Admit Date Dementia acute May 10, 2024 2:34pm Epilepsy acute May 10, 2024 2:34pm Transient ischemic attack resolved May 10, 2024 2:34pm [facility] Work Phone: 1([phone]) 199-343102-10-2025 Evaluation note* Diagnosis Onset Date Resolution Status Admit Date Dementia acute May 10, 2024 2:34pm Epilepsy acute May 10, 2024 2:34pm Transient ischemic attack resolved May 10, 2024 2:34pm Longstanding persistent atrial fibrillation acute July 01, 025 10:35am Essential (primary) hypertension chronic July 01, 2024 10:35am History of coronary artery stent placement February 14, 2007 resolved July 01, 2024 10:35am [facility] Work Phone: 1(203) 911-594803-22-2024 NoteStart PACC Note Home Health Referral Educated patient on Home Care and services available. Patient offered choice of available HHC and agreeable [facility] Care [...] is noted as yes - consider a BAGGER AND STOCK HANDLER HELPER evaluation once the patient returns home. START PATIENT REGISTRATION INFORMATION Order Information Order Signing Physician: Connie Perez APRN * Service Ordered RN ?: No Service Ordered PT ?: Yes Service Ordered OT ?: Yes Service Ordered ST ?: No Service Ordered BAGGER AND STOCK HANDLER HELPER?:No Service Ordered TELEGRAPHIC TYPEWRITER INSTALLER?: No Following Physician: ALEXANDRA HAGEN Following Physician Overseeing Physician: ALEXANDRA HAGEN (Required for Residents only) Agreeable to Follow? No Date/Time of Call 06/20/23 2:40 PM, Spoke with: BRYAN FOR OFFICE-CONFIRMED WITH JOSEP THIS IS HER PHYSICAN AND CAN SEE RECENT NOTES IN EPIC Care Coordination Same Day SOC?: No Primary Care Physician: ALEXANDRA HAGEN Primary Care Physician Primary Care Physician Address: [address] [place] [id number] Visit Instructions: N/A Service Discharge Location Type: Assisted Living Service Facility Name: [place] Service Floor Facility: N/A Service Room No: 105 Demographics Patient Last Name: Lisa Patient First Name: Ezra Language/Communication Barrier: NONE Service Address: [address] [place] [address] [address] Service City: [place] Service ST: [place] Service ZIP: [address] Service (home) Other phone numbers: No relevant phone numbers on file. Emergency Contact: Extended Emergency Contact Information Primary Emergency Contact: Patito Cuab Mobile Relation: Son Tavern Operator needed? No Secondary Emergency Contact: Ty [place] Mobile Relation: Son Admission Information Admit Date: 06/16/2023 Patient status at discharge: Inpatient Admitting Diagnosis: Closed displaced fracture of medial condyle of right humerus, initial encounter [S42.844C] Caregiver Information Caregiver First Name: NA Caregiver Last Name: NA Caregiver Relationship to Patient NA Caregiver Phone Number: NA Caregiver Notes: N/A Mobile Shareholder-Tech List No END PATIENT REGISTRATION INFORMATION Pt [...] medications. Discharge Date: 06/20/23 Referral Source-PACC: (Hospital/Unit): [facility] / [id number] A End PACC [facility]03-22-2024 History of Present illness Narrative* Juanjo Villalba RN - 06/20/2023 3:51 PM EDT Dc via DM cot to Josep MCARTHUR with all belongings * Juanjo Villalba RN - 06/20/2023 3:01 PM EDT Called report to Maryanne car * Dc Lombardi - 06/20/2023 2:26 PM EDT [facility] Anticoagulation Management Service (RIA) Inpatient Warfarin Consult HPI: Ezra Gonzalez is a 87 y.o. female admitted on 06/16/2023 for Closed displaced fracture of medial condyle of right humerus, initial encounter [S42.181A] History reviewed. No pertinent past medical history. [...] patient can be classified as high risk ([id number] = 8). 2. Monitor for s/s of bleeding and drug interactions. Will adjust dose accordingly 3. RIA will manage while inpatient Dc Lombardi, JpD Candidate Jp BolanosD, BCPS RIA is available daily [phone] via [employer] Chat. If no response on Epic Chat then please page [phone]. * Shayne Fonseca MD - 06/20/2023 6:05 [...] off at this time. Please page resident process description writer on Secure Chat with concerns or should [...] original note were not included. PHYSICAL THERAPY [facility] Initial Evaluation Name/MRN: Ezra Gonzalez ([id number]) Evaluation Date: 06/19/2023 Date of : 1935 Admission Date: 06/16/2023 1:38 PM Age: 87 y.o. Room/Bed: [facility]707/[facility]70 A Discharge Recommendation: Home with Home health PT (return to [place]) Equipment Needed: No Assessment IMPRESSION: 87 y.o. pt admitted to [facility] for closed fracture RUE, s/p ORIF R humerus 06/17. They were Min A for bed mobility, Min A for transfers, and Min A for ambulation. Pt limited d/t balance. If from [place] where she can receive Min A for all ADLs and mobility. Would recommend return to [place] and [facility] PTat discharge. Diagnosis: closed fracture [...] correction Ambulation Ambulation 1 Assistive device(s) used: TELEGRAPHIC TYPEWRITER INSTALLER Assist level: Min Assist Distance (ft): 15' [...] Raw Score (No Stairs) : 18 [facility] Score: Walked 25 ft or more [...] of Care supervision is transferred to a [facility] Therapy Services Physical Therapist. Goals and/or treatment plan was established in collaboration with patient/family/other representatives. * Enedelia Sanches Formerly Self [facility] - 06/19/2023 1:50 PM EDT [facility] Anticoagulation Management Service (RIA) Inpatient Warfarin Consult HPI: Ezra Gonzalez is a 87 y.o. female admitted on 06/16/2023 for Closed displaced fracture of medial condyle of right humerus, initial encounter [S42.815V] History reviewed. No pertinent past medical history. [...] patient can be classified as high risk ([id number] = 8). 2. Monitor for s/s of bleeding and drug interactions. Will adjust dose accordingly 3. RIA will manage while inpatient Jp MilnerD Candidate Jp BolanosD, BCPS RIA is available daily [phone] via Meaningfy. If no response on Tweetminster Chat then please page [phone]. * Kavon Diallo OT - 06/19/2023 11:54 AM EDT Images from the original note were not included. OCCUPATIONAL THERAPY [facility] Initial Evaluation Name/MRN: Ezra Gonzalez ([id number]) Evaluation Date: 06/19/2023 Date of : 1935 Admission Date: 06/16/2023 1:38 PM Age: 87 y.o. Room/Bed: [facility]70/[facility] A Discharge Recommendation: Continue to assess [...] of Care supervision is transferred to a [facility] Therapy Services Occupational Therapist. Goals and/or treatment plan was established in collaboration with patient/family/other representatives. * JANNETTE Hall CNP - 06/19/2023 9:52 AM EDT Images from the original note were not included. Hospitalist Progress Note 06/19/2023 Subjective: Admit Date: 06/16/2023 PCP: No primary care provider on file. Room#: G8-215/R3-063 A BRIEF HOSPITAL COURSE: Ezra is a [...] Extended Emergency Contact Information Primary Emergency Contact: MariiadennisPatito Mobile Relation: Son Tavern Operator needed? No Secondary Emergency Contact: MariiaTy collins Mobile Relation: Son JANNETTE Hall CNP Division of Hospitalist Medicine [facility] * Huma Tavarez MD - [...] be monitored and followed by the diet diesel truck technician. NICA Watts * Louisa Cespedes OT - 06/18/2023 8:26 AM EDT Images from the original note were not included. OCCUPATIONAL THERAPY [facility] Name/MRN: Ezra Gonzalez ([id number]) Date: 06/18/2023 OT eval and treat order received. Patient chart reviewed. Per Ortho note, "Plan for ORIF od R distal humerus." Will hold evaluation till after surgery. Louisa Cespedes OT * Connie Perez, MEASUREMENT SUPERINTENDENT - ASSOCIATE THEATRE PROFESSOR - 06/18/2023 8:00 AM EDT Images from the original note were not included. Hospitalist Progress Note 06/18/2023 Subjective: Admit Date: 06/16/2023 PCP: No primary care provider on file. Room#: E7-707/E7704 A BRIEF HOSPITAL COURSE: Ezra is a [...] Primary Emergency Contact: GillesrodriguePatito Mobile Relation: Son Tavern Operator needed? No Secondary Emergency Contact: GillesrodrigueTy Mobile Relation: Son JANNETTE Hall CNP Division of Hospitalist Medicine [facility] * Maryanne Neumann PT - 06/18/2023 7:27 AM EDT Images from the original note were not included. PHYSICAL THERAPY [facility] Name/MRN: Ezra Gonzalez ([id number]) Date: 06/18/2023 PT orders received and chart [...] tomorrow, 06/17. Ok for diet today. NPO @[place]. Keep splint C/D/I. Evette Viera MD Orthopaedic Surgery, PGY-5 [phone] * Connie Perez APRN - SUZ[facility] - 06/17/2023 7:46 AM EDT Images from [...] Emergency Contact: Patito Cuba Mobile Relation: Son Tavern Operator needed? No Secondary Emergency Contact: Ty [place] Mobile Relation: Son Connie Perez APRN - ASSOCIATE THEATRE PROFESSOR Division of Hospitalist Medicine [employer] [facility] [employer] * Shayne Fonseca MD - 06/17/2023 [...] + AIN/PIN/ulnar nerve functions documented in this [place] [address]-22-2024 Miscellaneous Notes* Care Coordination - Unknown Case Management - 06/20/2023 2:58 PM EDT Patient Choice Patient Name: EZRA GONZALEZ Date of : 1935 All Providers Sent Referral Name: [facility] Phone: [phone] Address: [address] [place] [address] * Home Care - Vivian Bills RN - 06/20/2023 2:40 PM EDT Start PACC Note Home Health Referral Educated patient on Home Care and services available. Patient offered choice of available HHC and agreeable to PT/OT services with [facility] at Home - Home Care. Care [...] is noted as yes - consider a BAGGER AND STOCK HANDLER HELPER evaluation once the patient returns home. START PATIENT REGISTRATION INFORMATION Order Information Order Signing Physician: Connie Perez APRN * Service Ordered RN ?: No Service Ordered PT ?: Yes Service Ordered OT ?: Yes Service Ordered ST ?: No Service Ordered BAGGER AND STOCK HANDLER HELPER?:No Service Ordered TELEGRAPHIC TYPEWRITER INSTALLER?: No Following Physician: ALEXANDRA HAGEN Following Physician Overseeing Physician: ALEXANDRA HAGEN (Required for Residents only) Agreeable to Follow? No Date/Time of Call 06/20/23 2:40 PM, Spoke with: BRYAN FOR OFFICE-CONFIRMED WITH JOSEP THIS IS HERPHYSICAN AND CAN SEE RECENT NOTES IN [facility] Care Coordination Same Day SOC?: No Primary Care Physician: ALEXANDRA HAGEN Primary Care Physician Primary Care Physician Address: [address] [place] [address] / [facility] [id number] Visit Instructions: N/A Service Discharge Location Type: Assisted Living Service Facility Name: [facility] Floor Facility: N/A Service Room No: 105 Demographics Patient Last Name: Lisa Patient First Name: Ezra Language/Communication Barrier: NONE Service Address: [address] [place] [address] [address] Service City: [facility] ST: [place] Service ZIP: [address] Service (home) Other phone numbers: No relevant phone numbers on file. Emergency Contact: Extended Emergency Contact Information Primary Emergency Contact: Patito [place] Mobile Relation: Son Tavern Operator needed? No Secondary Emergency Contact: Ty [place] Mobile Relation: Son Admission Information Admit Date: 06/16/2023 Patient status at discharge: Inpatient Admitting Diagnosis: Closed displaced fracture of medial condyle of right humerus, initial encounter [S41.384S] Caregiver Information Caregiver First Name: NA Caregiver Last Name: NA Caregiver Relationship to Patient NA Caregiver Phone Number: NA Caregiver Notes: N/A Mobile Shareholder-Tech List No END PATIENT REGISTRATION INFORMATION Pt [...] medications. Discharge Date: 06/20/23 Referral Source-PACC: (Hospital/Unit): [facility] / E7-707/E7-707 A End PACC [...] pt order lunch. Notified JAYME ELIZALDE and shotgun shell reprinting unit operator. . * Care Coordination - Shikha Gray RN - 06/20/2023 11:01 AM EDT I SPOKE WITH DONOVAN, DROP CLIPPER AT [facility]. THEY CAN TAKE PT BACK TODAY. THEY CAN PROVIDE TRANSPORTATION BACK TO FACILITY AROUND 3 PM. AWARE PT WILL NEED PT AT FACILITY, THEY USE [facility], DID LET LIAISON NOW. WENT [...] Date: 06/16/2023 - 06/18/2023 Location: [facility] OR Name: Ezra Gonzalez, : 1935, Diagnosis Pre-op Diagnosis * Closed displaced fracture of medial condyle of right humerus, initial encounter [S42.931A] Post-op Diagnosis * Closed displaced fracture of medial condyle of right humerus, initial encounter [S42.461A] Procedures OPEN REDUCTION INTERNAL FIXATION RIGHT DISTAL HUMERUS 32173 - DE OPTX HUMERAL SHFT FX W/PLATE/SCREWS W/WOCERCLAGE Surgeons * Benitez Givens - Primary Procedure Summary Anesthesia: * No anesthesia type entered * ASA: III Estimated Blood Loss: Minimal Drains: * None in log * Staff: Fleet Director: Vivian Herrera RN Scrub Person: Linda [...] Limits Permission given to speak with patient junior sales representative/caregiver as indicated: No Confirmation of Payer with patient/family: Yes Payer Name: [facility] Alleene: No Confirmation of Primary Care Physician: Confirmed [...] pain control documented in this encounterSCleveland Clinic Med[facility] HospitalSjrxot17-10-4316 Note* Care Coordination - Unknown Case Management - 06/20/2023 2:58 PM EDT Patient Choice Patient Name: EZRA GONZALEZ Date of : 1935 All Providers Sent Referral Name: [facility] [place] Phone: [phone] Address: [address] [place] [address] [facility]vim[facility]65[facility]-4174 Note* Care Coordination - Unknown Case Management - 06/20/2023 2:58 PM EDT Patient Choice Patient Name: EZRA GONZALEZ Date of : 1935 All Providers Sent Referral Name: [facility] Phone: [phone] Address: [address] [place] [address] [facility] HospitalJiedkr73-14-8982 Note* Home Care - Vivian Bills RN - 06/20/2023 2:40 PM EDT Start PACC Note Home Health Referral Educated patient on Home Care and services available. Patient offered choice of available HHC and agreeable to PT/OT services with [facility] at Home - Home Care. Care [...] is noted as yes - consider a BAGGER AND STOCK HANDLER HELPER evaluation once the patient returns home. START PATIENT REGISTRATION INFORMATION Order Information Order Signing Physician: Connie Perez APRN * Service Ordered RN ?: No Service Ordered PT ?: Yes Service Ordered OT ?: Yes Service Ordered ST ?: No Service Ordered BAGGER AND STOCK HANDLER HELPER?:No Service Ordered TELEGRAPHIC TYPEWRITER INSTALLER?: No Following Physician: ALEXANDRA HAGEN Following Physician Overseeing Physician: ALEXANDRA HAGEN (Required for Residents only) Agreeable to Follow? No Date/Time of Call 06/20/23 2:40 PM, Spoke with: BRYAN FOR OFFICE-CONFIRMED WITH FIDEISLIP THIS IS HERPHYSICAN AND CAN SEE RECENT NOTES IN [facility] Care Coordination Same Day SOC?: No Primary Care Physician: ALEXANDRA HAGEN Primary Care Physician Primary Care Physician Address: [address] [place] [address] [address] / [facility] [id number] Visit Instructions: N/A Service Discharge Location Type: Assisted Living Service Facility Name: [facility] Floor Facility: N/A Service Room No: 105 Demographics Patient Last Name: Lisa Patient First Name: Ezra Language/Communication Barrier: NONE Service Address: [address] [place] [address] [address] Service City: [facility] ST: [place] Service ZIP: [address] Service (home) Other phone numbers: No relevant phone numbers on file. Emergency Contact: Extended Emergency Contact Information Primary Emergency Contact: Patito Cuba Mobile Relation: Son Tavern Operator needed? No Secondary Emergency Contact: GillesrodrigueTy Mobile Relation: Son Admission Information Admit Date: 06/16/2023 Patient status at discharge: Inpatient Admitting Diagnosis: Closed displaced fracture of medial condyle of right humerus, initial encounter [S42.461A] Caregiver Information Caregiver First Name: NA Caregiver Last Name: NA Caregiver Relationship to Patient NA Caregiver Phone Number: NA Caregiver Notes: N/A Mobile Shareholder-Tech List No END PATIENT REGISTRATION INFORMATION Pt [...] medications. Discharge Date: 06/20/23 Referral Source-PACC: (Hospital/Unit): [facility] / E7-707/E7-707 A End PACC Note [facility] HospitalNftpxz51-69-8419 Note* Home Care - Vivian Bills RN - 06/20/2023 2:40 PM EDT Start PACC Note Home Health Referral Educated patient on Home Care and services available. Patient offered choice of available HHC and agreeable to PT/OT services with [facility] at Home - Home Care. Care [...] is noted as yes - consider a BAGGER AND STOCK HANDLER HELPER evaluation once the patient returns home. START PATIENT REGISTRATION INFORMATION Order Information Order Signing Physician: Connie Perez APRN * Service Ordered RN ?: No Service Ordered PT ?: Yes Service Ordered OT ?: Yes Service Ordered ST ?: No Service Ordered BAGGER AND STOCK HANDLER HELPER?:No Service Ordered TELEGRAPHIC TYPEWRITER INSTALLER?: No Following Physician: ALEXANDRA HAGEN Following Physician Overseeing Physician: ALEXANDRA HAGEN (Required for Residents only) Agreeable to Follow? No Date/Time of Call 06/20/23 2:40 PM, Spoke with: BRYAN FOR OFFICE-CONFIRMED WITH FIDEMUKUL THIS IS HERPHYSICAN AND CAN SEE RECENT NOTES IN [facility] Care Coordination Same Day SOC?: No Primary Care Physician: ALEXANDRA HAGEN Primary Care Physician Primary Care Physician Address: [address] [place] [address] [address] / [address] Visit Instructions: N/A Service Discharge Location Type: Assisted Living Service Facility Name: [facility] Floor Facility: N/A Service Room No: 105 Demographics Patient Last Name: Lisa Patient First Name: Ezra Language/Communication Barrier: NONE Service Address: [address] [place] [address] 105 Service City: [facility] ST: [place] Service ZIP: [address] Service (home) Other phone numbers: No relevant phone numbers on file. Emergency Contact: Extended Emergency Contact Information Primary Emergency Contact: Patito Cuba Mobile Relation: Son Tavern Operator needed? No Secondary Emergency Contact: Ty Cuba Mobile Relation: Son Admission Information Admit Date: 06/16/2023 Patient status at discharge: Inpatient Admitting Diagnosis: Closed displaced fracture of medial condyle of right humerus, initial encounter [S42.466A] Caregiver Information Caregiver First Name: NA Caregiver [...] medications. Discharge Date: 06/20/23 Referral Source-PACC: (Hospital/Unit): [facility] / E7-707/E7-707 A End PACC Note [facility] HospitalSbbjnr98-81-0732 NoteHospitalist Discharge Summary Ezra Gonzalez : 1935 [...] pt order lunch. Notified TONIO, RN and shotgun shell reprinting unit operator. . [facility] HospitalOcproc03-65-0922 Note* Care Coordination - SELINA Magaña - [...] pt order lunch. Notified TCC, RN and shotgun shell reprinting unit operator. . [facility] HospitalKqxhhs81-15-2771 Note* Care Coordination - Shikha Gray RN - 06/20/2023 11:01 AM EDT I SPOKE WITH DONOVAN, DROP CLIPPER AT [facility]. THEY CAN TAKE PT BACK TODAY. THEY CAN PROVIDE TRANSPORTATION BACK TO FACILITY AROUND 3 PM. AWARE PT WILL NEED PT AT FACILITY, THEY USE [facility], DID LET HC LIAISON NOW. [...] SECURE CHAT WITH CONNIE PEREZ REGARDING THIS. T [facility] HospitalClncpn50-51-6065 Note* Care Coordination - Shikha Gray RN - 06/20/2023 11:01 AM EDT I SPOKE WITH DONOVAN, DROP CLIPPER AT [facility]. THEY CAN TAKE PT BACK TODAY. THEY CAN PROVIDE TRANSPORTATION BACK TO FACILITY AROUND 3 PM. AWARE PT WILL NEED PT AT FACILITY, THEY USE [facility], DID LET HC LIAISON NOW. [...] SECURE CHAT WITH CONNIE PEREZ REGARDING THIS. T [place] [id number] Hospital course Narrative* Connie Perez, MEASUREMENT SUPERINTENDENT - ASSOCIATE THEATRE PROFESSOR - 06/20/2023 10:18 AM EDT Images from [...] as possible for a visit As needed [facility] Orthopedics Go to Appointment scheduled 06/26/23 at 10:[address] Givens. [address] [facility] Complexity of Follow up: [x] Moderate Complexity: follow up within 7-14 calendar days (74088) [] Severe Complexity: follow up within 7 calendar days (85041) Follow up Testing, Pending results or Referrals [...] time frame. Signed: Connie Perez APRN - [facility] Division of Hospitalist Medicine [facility] 06/20/2023, 1:11 PM documented in this [facility]03-22-2024 NoteDepartment of Orthopedic Surgery Progress Note ASSESSMENT [...] off at this time. Please page resident process description writer on Secure Chat with concerns or should [...] in all distributions -Motor function intact to AIN/PIN/[facility]lnar[facility] [id number] Note PHYSICAL THERAPY [facility] Initial Evaluation Name/MRN: Ezra Gonzalez ([id number]) Evaluation Date: 06/19/2023 Date of : 1935 Admission Date: 06/16/2023 1:38 PM Age: 87 y.o. Room/Bed: E7-707/E7-707 A Discharge Recommendation: Home with Home health PT (return to [place]) Equipment Needed: No Assessment IMPRESSION: 87 y.o. pt admitted to [facility] for closed fracture RUE, s/p ORIF R humerus 06/17. They were Min A for bed mobility, Min A for transfers, and Min A for ambulation. Pt limited d/t balance. If from [place] where she can receive Min A for all ADLs and mobility. Would recommend return to [place] and [facility] PT at discharge. Diagnosis: closed [...] this session Hearing: normal Social/Functional History From [place]. Able to receive Min A for all [...] correction Ambulation Ambulation 1 Assistive device(s) used: TELEGRAPHIC TYPEWRITER INSTALLER Assist level: Min Assist Distance (ft): 15' [...] FOR PT/OT EVALS FOR DC PLANNING. [facility] HospitalTujdbv72-27-9304 Note* Care Coordination - Shikha Gray RN - 06/19/2023 2:05 PM EDT DAY #1 S/P ORIF OF RIGHT ARM. WAITING FOR PT/OT EVALS FOR DC PLANNING. [facility] HospitalAezuyd04-92-3911 NoteOCCUPATIONAL THERAPY [facility] Initial Evaluation Name/MRN: Ezra Gonzalez ([id number]) Evaluation Date: 06/19/2023 Date of : 1935 Admission Date: 06/16/2023 1:38 PM Age: 87 y.o. [facility]Bed: [facility] A Discharge Recommendation: Continue to assess [...] No primary care provider on file. Room#: E7-707/709 A BRIEF HOSPITAL COURSE: Ezra is a [...] Dischar (more content not included)...[facility] 06-19-2023 NoteDepartment of Orthopedic Surgery Progress [...] Procedure Summary Date: 06/18/23 Room / Location: [facility] Operating Room Anesthesia Start: 1541 Anesthesia Stop: 1915 Procedure: OPEN REDUCTION INTERNAL FIXATION RIGHT DISTAL HUMERUS (Right: Arm Upper) Diagnosis: Closed displaced fracture of medial condyle of right humerus, initial encounter (Closed displaced fracture of medial condyle of right humerus, initial encounter [S42.772Z]) Surgeons: Benitez Givens MD Responsible Provider: Shayne Quesada MD Anesthesia Type: general, regional ASA Status: 3 Anesthesia Type: general, regional Vitals Value Taken Time BP 116/67 06/18/23 1913 Temp 97.3 06/18/23 1921 Pulse 83 06/18/23 1920 Resp 18 06/18/231920 SpO2 89 % 06/18/231919 [...] discharged once all PACU criteria has been met.[facility] [id number] NotePatient: Ezra Gonzalez Procedure Summary Date: 06/18/23 Room / Location: [address] Operating Room Anesthesia Start: 1541 Anesthesia [...] states she will call pt's son,. [facility] HospitalKylmcw34-88-8694 Note* Perioperative Nursing Note - Irina Khan RN - 06/18/2023 8:11 PM EDT Pt states no need to contact family. RN on floor states she will call pt's son,. [facility] HospitalPwcngy07-62-8795 NoteAirway Date/Time: 06/18/2023 3:56 PM Urgency: scheduled General Information and Staff Patient location during procedure: Procedural Resident/SELF PAY REPRESENTATIVE: Sae Lora CRNA Performed: SELF PAY REPRESENTATIVE Indications and Patient Condition Indications for airway [...] (cm): 21 Number of attempts at approach: [address] [place], [place] [address]3-20-2024 Note Peripheral IV Date/Time: 06/18/2023 4:00 PM Inserted by: JANNETTE Ivye CRNA Placement Needle size: 20 G Laterality: left Location: upper arm. Local anesthetic: none Site prep: alcohol Technique: ultrasound guided Attempts: [address] [place], [place] [address]-20-2024 NotePeripheral Block Time Out: 06/18/2023 3:28 PM Patient location during procedure: Procedural Start time: 06/18/2023 3:28 PM End time: 06/18/2023 3:32 PM Reason for block: at surgeon's request and post-op pain management Staffing Performed: SELF PAY REPRESENTATIVE Resident/SELF PAY REPRESENTATIVE: JANNETTE Ivey CRNA Preanesthetic Checklist Completed: patient [...] No paresthesias reported by patient during injectionMedications omnNBHZZdwkix-bbkopechkkg-dhelulcypeq (TAP) syringe - Injection 30 mL - 06/18/2023 3:28:00 [facility]03-20-2024 NotePatient: Ezra Gonzalez Procedure Information Date/Time: 06/18/23 1530 Procedure: OPEN REDUCTION INTERNAL FIXATION RIGHT DISTAL HUMERUS (Right: Arm Upper) - requesting 330, if can't go at 330 will consider friday Location: [facility] OR Operating Room Surgeons: Benitez Givens MD Relevant [...] by: Thong Francois DO on 06/17/2023 6:39 [facility] 06-18-2023 Hospital Discharge instructions* Discharge Instructions* Evette [...] Emergency Contact: Patito Cuba Mobile Relation: Son Tavern Operator needed? No Secondary Emergency Contact: Ty [...] (78.9 kg) Mental Status: {MITCHEL Patient Mental Status:87597} IV Access: {MITCHEL IV Access:06929} Nursing Mobility/ADLs: Walking {MALLY ADL:44631::"Independent"} Transfer {MALLY ADL:47256::"Independent"} Bathing {MALLY ADL:97082::"Independent"} Dressing {MALLY ADL:::"Independent"} Toileting {MALLY ADL:::"Independent"} Feeding {MALLY ADL:::"Independent"} Business Process Engineer {MALLY ADL:::"Independent"} Med Delivery {yes/no:61954} Wound Care Documentation and Therapy: Wound/Incision 06/18/23 Incision Arm Anterior;Right;Upper (Active) Site Assessment Clean;Dry 06/19/232147 Treatments Sling 06/19/232147 Primary Dressing Xeroform 06/19/23 1024 Dressing Status Clean, dry & intact 06/19/232147 Number of days: 1 Elimination: Continence: Bowel: {yes/no:04277} Bladder: {yes/no:50966} Urinary Catheter: {MITCHEL Urinary Catheter:30239} Colostomy/Ileostomy/Ileal Conduit: {YES / NO:} Date of Last BM: No intake or output data in the 24 hours ending 06/20/23 1025 I/O last 3 completed shifts: In: 711 (9 mL/kg) [P.O.:280; I.V.:114 (1.4 mL/kg); IV Piggyback:317] Out: 600 (7.6 mL/kg) [Urine:350 (0.1 mL/kg/hr); Blood:250] Weight: 78.9 kg Safety Concerns: {MITCHEL Safety Concerns:47236} Impairments/Disabilities: {MITCHEL Impairments/Disabilities:64400} Nutrition Therapy: Current Nutrition Therapy: {MITCHEL Diet List:66599} Routes of Feeding: {routes of feedin} Liquids: {liquid consistency:10291} Daily Fluid Restriction: {daily fluid restriction:01088} Last Modified Barium Swallow with Video (Video Swallowing Test): {done not done:44677} Treatments at the Time of Hospital Discharge: Respiratory Treatments: Oxygen Therapy: {Therapy; copd oxygen:36979} Ventilator: {MITCHEL Ventilator:83176} Rehab Therapies: {GEN THERAPY DISCIPLINE SCAL:8789624} Weight Bearing Status/Restrictions: {POD WEIGHT BEARIN} Other Medical Equipment (for information only, NOT a DME order): {Assistive Devices DME:13552} Other Treatments: Patient's personal belongings (please select all that are sent with patient): {MITCHEL Patient Belongings:89719} RN SIGNATURE: {E-signature:70305} CASE MANAGEMENT/SOCIAL WORK SECTION Inpatient Status Date: 06/16/23 Readmission Risk Assessment Score: @READMISSIONRISKDETAILS@ Discharging to Facility/ Agency Discharging to Facility/ Agency Name: [facility] Address: [address] [place] [address] Name: [facility] Address:[address] [place] [address] ~28.4 mi Fax: Dialysis Facility (if applicable) Name: Address: Dialysis Schedule: Phone: Fax: Forest Firefighter/Fork Lift Mechanic signature: ICIAN SECTION Prognosis: good Condition at [...] in H&P PHYSICIAN SIGNATURE: documented in this [facility]03-20-2024 Note* Brief Op Note - Lexa Aparicio MD - 06/18/2023 3:42 PM EDT Date: 06/16/2023 - 06/18/2023 Location: [facility] OR Name: Ezra Gonzalez, : 1935, Diagnosis Pre-op Diagnosis * Closed displaced fracture of medial condyle of right humerus, initial encounter [S42.461A] Post-op Diagnosis * Closed displaced fracture of medial condyle of right humerus, initial encounter [S42.461A] Procedures OPEN REDUCTION INTERNAL FIXATION RIGHT DISTAL HUMERUS 05873 - DE OPTX HUMERAL SHFT FX W/PLATE/SCREWS W/WOCERCLAGE Surgeons * Benitez Givens - Primary Procedure Summary Anesthesia: * No anesthesia type entered * ASA: III Estimated Blood Loss: Minimal Drains: * None in log * Staff: Fleet Director: Vivian Herrera RN Scrub Person: Linda [...] Givens in 2 weeks -Ortho to follow. [employer] [place] [facility] Phone: [phone] 577-741203-20-2024 Note* Brief Op Note - Lexa Aparicio MD - 06/18/2023 3:42 PM EDT Date: 06/16/2023 - 06/18/2023 Location: [facility] OR Name: Ezra Gonzalez, : 1935, Diagnosis Pre-op Diagnosis * Closed displaced fracture of medial condyle of right humerus, initial encounter [S42.223E] Post-op Diagnosis * Closed displaced fracture of medial condyle of right humerus, initial encounter [S42.381R] Procedures OPEN REDUCTION INTERNAL FIXATION RIGHT DISTAL HUMERUS 69567 - DE OPTX HUMERAL SHFT FX W/PLATE/SCREWS W/WOCERCLAGE Surgeons * Benitez Givens - Primary Procedure Summary Anesthesia: * No anesthesia type entered * ASA: III Estimated Blood Loss: Minimal Drains: * None in log * Staff: Fleet Director: Vivian Herrera RN Scrub Person: Linda [...] Givens in 2 weeks -Ortho to follow. [employer] Phone: 1(496) 495-213503-20-2024 Note* Perioperative Nursing Note - Deisy Gonzalez RN - 06/18/2023 3:29 PM EDT Patients wallet and watch locked up with security. OR notified patient states she has latex allergy Patients purse and glasses [facility] pacu [facility]gz56-15-6534 Note* Perioperative Nursing Note - Deisy Gonzalez RN - 06/18/2023 3:29 PM EDT Patients wallet and watch locked up with security. OR notified patient states she has latex allergy Patients purse and glasses [facility] to pacu [facility]pvpm44-40-4992 Note* Care Coordination - Shikha Gray RN - 06/18/2023 1:03 PM EDT Care Managment Initial Assessment Date: 06/18/2023 Patient Name: Ezra Gonzalez : 1935 Patient Information Source of Information: Patient Cognition/Language: WFL - Within Functional Limits Permission given to speak with patient junior sales representative/caregiver as indicated: No Confirmation of Payer with patient/family: Yes Payer Name: [facility] Alleene: No Confirmation of Primary Care Physician: Confirmed Primary Caregiver: Self If assistance needed, confirmed caregiver ready, willing and able to care for patient at discharge: Confirmed with: Living Arrangements Current Residence: Number of Floors Number of Entry Steps: Bed/Bath Levels: Facility: Assisted Living [facility] Name: [facility] Plan to Return: Yes Lives with: Alone [...] CONTINUE TO FOLLOW. Shikha Gray RN [facility] [id number] Note* Care Coordination - Shikha Gray RN - 06/18/2023 1:03 PM EDT Care Managment Initial Assessment Date: 06/18/2023 Patient Name: Ezra Gonzalez : 1935 Patient Information Source of Information: Patient Cognition/Language: WFL - Within Functional Limits Permission given to speak with patient junior sales representative/caregiver as indicated: No Confirmation of Payer with patient/family: Yes Payer Name: [facility] Alleene: No Confirmation of Primary Care Physician: Confirmed [...] CONTINUE TO FOLLOW. Shikha Gray RN [facility] HospitalTxhzeq78-93-8540 NoteHospitalist Progress Note 06/18/2023 Subjective: Admit Date: 06/16/2023 PCP: No primary care provider on file. Room#: E7-264/Q1-284 A BRIEF HOSPITAL COURSE: Ezra is a [...] Primary Emergency Contact: BereketPatito Mobile Relation: Son Tavern Operator needed? No Se (more content not [...] shift include rest and pain control [facility] HospitalOjuifn06-61-0131 Nurse Note* Yvan Sepulveda RN - 06/17/2023 9:22 PM EDT Patient home medication list updated, provider made aware. [place] [id number] Nurse Note* Yvan Sepulveda RN - 06/17/2023 9:22 PM EDT Patient home medication list updated, provider made aware. documented in this [facility]03-19-2024 Emergency department Note* Di Reyna RN - 06/17/2023 11:52 AM EDT Patient resting in bed at this time, equal unlabored respirations noted and no acute distress, callbell within reach Di Reyna RN 06/17/23 1153 [facility] HospitalHqxbik51-56-3993 Emergency department Note* Di Reyna RN - [...] US IV line. Juanjo Pringle RN 06/16/23 8569 * NADIA Ruiz - 06/16/2023 12:38 PM [...] injury anywhere else. Patient was evaluated at [facility] emergency department prior to arrival and was noted to have a distal humerus fracture. Patient was transferred to [facility] ED for orthopedic consultation. Patient denies [...] Culture. Procedure Abnormality Status --------- ------ Complete Urinalysis[[id number]] Please view results for these tests on [...] right arm injury. Patient was seen at [facility] prior to arrival was noted to have a distal humerus fracture. Patient transferred to [facility] ED for orthopedic consultation. Nursing notes [...] screen, x-ray right elbow. CT head from [place] [facility] -shows no signs of acute cranial abnormalities. CXR from [place] ED prior to arrival -blunting of bilateral [...] signed) Emergency Medicine Provider NADIA Ruiz 06/16/23 9780 * Sae Conde MD - 06/16/2023 12:38 PM EDT Emergency Department Encounter [facility] EMERGENCY DEPT Patient: Ezra Gonzalez : [...] for clarification.) Sae Conde MD Acute Care [facility] Sae Conde MD 06/16/23 1174 documented in this [facility]03-19-2024 Emergency department Note* Alia Foster RN - 06/17/2023 10:00 AM EDT Pt O2 desaturating to mid 80s after receiving dilaudid IV. Pt placed on 2L NC and immediately back up to 95%. notified Alia Foster RN 06/17/23 1031 [facility] HospitalSrmqtz21-57-1163 NoteHospitalist Progress Note 06/17/2023 Subjective: Admit Date: [...] Emergency Contact: Patito [place] Mobile Relation: Son Tavern Operator needed? No Secondary Emergency Contact: Ty [place] Mobile Relation: Son Connie Perez, MEASUREMENT SUPERINTENDENT - ASSOCIATE THEATRE PROFESSOR Division of Hospitalist Medicine [facility]03-19-2024 NoteDepartment of Orthopedic Surgery Progress Note [...] US IV line. Juanjo Pringle RN 06/16/23 0641 [facility] HospitalVrybtt26-25-3998 NoteAttending History and Physical Admit Date: 06/16/2023 [...] does not feel safe going back to [place] at this time. Since patient staying ortho [...] does not feel safe going back to [place] at this time. Since patient staying ortho [...] Emergency Contact: Patito [place] Mobile Relation: Son Tavern Operator needed? No Secondary Emergency Contact: Ty [place] Mobile Relation: Son Jayshree Cortez MD Division of Hospitalist Medicine Acute [facility] [employer] Work Phone: 1(946) 309-845103-18-2024 History and physical note* Jayshree Cortez MD [...] Emergency Contact: Patito [place] Mobile Relation: Son Tavern Operator needed? No Secondary Emergency Contact: Ty [place] Mobile Relation: Son Jayshree Cortez MD Division of Hospitalist Medicine [facility] documented in this [facility]03-18-2024 Physician Emergency department Note* NADIA Ruiz - [...] injury anywhere else. Patient was evaluated at [facility] emergency department prior to arrival and was noted to have a distal humerus fracture. Patient was transferred to [facility] ED for orthopedic consultation. Patient denies [...] Culture. Procedure Abnormality Status --------- ------ Complete Urinalysis[[id number]] Please view results for these tests on [...] right arm injury. Patient was seen at [facility] prior to arrival was noted to have a distal humerus fracture. Patient transferred to [facility] ED for orthopedic consultation. Nursing notes [...] screen, x-ray right elbow. CT head from [place] [facility] -shows no signs of acute cranial abnormalities. CXR from [place] ED prior to arrival -blunting of bilateral [...] signed) Emergency Medicine Provider NADIA Ruiz 06/16/23 9999 [facility] HospitalGztlof57-07-6045 Physician Emergency department Note* Sae Conde MD - 06/16/2023 12:38 PM EDT Emergency Department Encounter [facility] EMERGENCY DEPT Patient: Ezra Gonzalez : [...] for clarification.) Sae Conde MD Acute Care [facility] Sae Conde MD 06/16/23 1626 [employer] Phone: 1([phone]) 422-923009-30-2023 Discharge summary Author Lali Pimentel [facility] December 27, 2022 10:31pm Note Date/Time December 27, 2022 3:52pm [facility] Medical Records Department [address] [place] [address] Emergency Department Summary 12/27/22 MR#: [id number] Acct: [id number] Name: EZRA GONZALEZ Rep #:[id number] : 1935 87 From: Lali Pimentel MD PCP: Dr. Rosemary Doran MD Status:ADM MARIELOS Location: [place] [address]- 1 HPI History of Present Illness Chief Complaint: [...] repeat a phrase her speech is garbled. [facility] Medical History Atherosclerotic heart disease of [place] coronary artery without angina pectoris Chronic diastolic [...] % (Auto) 57.4 Lymph % (Auto) 27.9 [place] % (Auto) 10.8 H Eos % (Auto) [...] MD at 15:37 EDT , ADDENDUM: 12/27/22 7286 IMPRESSION: No acute intracranial process identified. Moderate [...] troponin is normal at 10. Neurology from [facility] felt that the patient should be [...] Provider] - Disposition Disposition: Acute Care Hospital [facility] What to do if you have Problems For any increased pain, shortness of breath, bleeding, nausea or vomiting, chestpain, or any unexpected problems, contact your Primary Care Provider. Call [facility] ([phone]) or report to the closest Emergency Room. Call 911 if necessary. 12/27/222230 <Electronically signed by Lali Pimentel MD> Cosigner Signature (if applicable): CC: Dr. Rosemary Doran MD ~ Signed [facility] Work Phone: 1(902) 280-599609-29-2023 History and physical note Author Lynn Horn [facility] December 27, 2022 6:54pm Note Date/Time December 27, 2022 5:12pm [facility] Medical Records Department [address] [place] [address] H&P Exam - Hospitalist 12/27/22 1709 MR#: [id number] Acct: [id number] Name: EZRA GONZALEZ Rep #:[id number] : 1935 87 From: Lynn Horn DO PCP: Dr. Rosemary Doran MD Status:ADM MARIELOS Location: [place] [address] HPI - General General Date of Admission: 12/27/22 Date of Service: 12/27/22 Chief Complaint: Speech abnormalities HPI Narrative EZRA GONZALEZ, is a 87 F who presented to the emergency department at [facility] on 12/27/2022 with speech abnormalities that started after 1 PM this afternoon. She resides at [facility]. She was last known well at [...] will add aspirin 81 mg as well [facility] Medical History Atherosclerotic heart disease of [place] coronary artery without angina pectoris Chronic diastolic [...] % (Auto) 57.4, Lymph % (Auto) 27.9, [place] % (Auto) 10.8 H, Eos % (Auto) [...] on admission Charges/Coding Visit Charges Inpatient E&M: 21216 Init Hosp L2 12/27/22 6461 <Electronically signed by Lynn Kory DO> Cosigner Signature (if applicable): CC: Dr. Rosemary Doran MD; Dr. Lynn Horn, DO~ Signed [facility] Work Phone: 1(313) 552-878409-14-2023 Discharge summary Author María Crane [facility] December 12, 2022 1:40pm Note Date/Time December 12, 2022 1:40pm [facility] Physical Therapy [facility] [address] [place] [address]. [address] [place] [address] / REHABILITATION SERVICES DISCHARGE SUMMARY MR#: [id number] Acct: [id number] Name: EZRA GONZALEZ Rep #: [id number] : 1935 87 From: María Crane DP T Referring Dr.: Dr. Anant Juarez MD Status: REG [facility] Insurance: [facility] [id number] SELF PAY INSURANCE Patient Information Patient Information: [...] Dr. Anant Juarez MD ~ ELR Signed [facility] Work Phone: [phone]) [phone] Evaluation note* Diagnosis Onset Date Resolution Status Chronic diastolic (congestive) heart failure chronic Essential (primary) hypertension chronic Paroxysmal atrial fibrillation chronic History of coronary artery stent placement February 142006 resolved [facility] Work Phone: 1(321) 624-452411-17-2007 Evaluation note* Diagnosis Onset Date Resolution Status Chronic diastolic (congestive) heart failure chronic Essential (primary) hypertension chronic History of coronary artery stent placement February 142006 resolved Brain TIA resolved Carotid stenosis acute Difficulty with speech acute Dysarthria resolved Polyneuropathy acute [facility] Work Phone: 1(292) 660-857411-17-2007 Evaluation note* Diagnosis Onset Date Resolution Status Chronic diastolic (congestive) heart failure chronic Essential (primary) hypertension chronic History of coronary artery stent placement February 142006 resolved Brain TIA resolved Carotid stenosis acute Difficulty with speech acute Dysarthria resolved Abnormality of gait and mobility acute Carotid stenosis acute Dementia acute Polyneuropathy acute Transient ischemic attack re solved [facility] Work Phone: [phone] 173-246811-17-2007 Evaluation note* Diagnosis Onset Date Resolution Status Longstanding persistent atrial fibrillation acute Essential (primary) hypertension chronic History of coronary artery stent placement February 142006 resolved Dementia acute Epilepsy acute Polyneuropathy acute Transient ischemic attack re solved [facility] Work Phone: Consult note Author Kvng Carney [facility] June 16, 2023 10:15am Note Date/Time June 16, 2023 10: 14am [facility] Medical Records Department [address] [place] [address] Consultation - Orthopedics 06/16/23 1012 MR#: [id number] Acct: [id number] Name: EZRA GONZALEZ Rep #:[id number] : 1935 87 From: Kvng Carney MD PCP: Dr. Rosemary Doran MD Status:REG ER Location: ED HPI Consult Data Date of Consult: 06/16/23 HPI Narrative HPI Narrative: EZRA GONZALEZ, is a 87 F who presents with a right distal humerus fracture. Patient apparently is in intermediate there a fall. According to the ED physician Dr. Mack who called me today this is a closed neurovascularly intact injury. [facility] Medical History (Updated 06/16/23 @ 10:13 by Kvng Carney MD) Atherosclerotic heart disease of [place] coronary artery without angina pectoris Chronic diastolic [...] % (Auto) 67.8, Lymph % (Auto) 23.0, [place]% (Auto) 7.0, Eos % (Auto) 1.3, Baso [...] applicable): CC: Dr. Rosemary Doran MD~ Signed [facility] Work Phone: Discharge summary Author Neri Mitchell [facility] November 14, 2022 11:57am Note Date/Time November 14, 2022 11 :10am [facility] Medical Records Department [address] [place] [address] Emergency Department Summary 11/14/22 MR#: [id number] Acct: [id number] Name: EZRA GONZALEZ Rep #:[id number] : 1935 87 From: Neri Mitchell MD [...] is on warfarin has history of TIAs. [facility] Medical History Atherosclerotic heart disease of [place] coronary artery without angina pectoris Chronic diastolic [...] deficits noted Neuro Narrative: Aphasic. Follows commands. [place] Coma Scale: document GCS findings Spontaneous Obeys [...] % (Auto) 64.0 Lymph % (Auto) 24.9 [place] % (Auto) 7.8 Eos % (Auto) 2.4 [...] No evidence for large vessel occlusion the [place]. N.B. : The above Results were Read Back by Ban Avila MD to Neri Mitchell MD, and understanding confirmed on 11/14/2022 11:41:26 (ET). Electronically Signed: Ban Avila MD at 11:41 EDT , ADDENDUM: 11/14/22 1148 IMPRESSION: No evidence for significant stenosis or occlusion in the carotid or vertebral arteries of the neck. No evidence for large vessel occlusion the [place]. N.B. : The above [...] Fibrillation Management Discussion w/another healthcare provider: Hospitalist, Respiratory Manager (Stroke neurology Dr. Tamez) and Radiologist (At 1121 for NCCT, negative for bleed) Stroke Documentation Questions Stroke Team Activated: Yes Critical Care Time Critical Care Time: Yes Critical care time (excluding procedures): 30-74 minutes (37 min), Including time spent:, Discussing w/Patient &/or Family/Laboratory Technologist, Discussing w/Consultants, Arranging Admission or Transfer and Performing Direct Patient Care at Bedside Discharge Plan Dx/Rx/DC Orders Clinical Impression: Brain TIA, Paroxysmal atrial fibrillation, Subtherapeutic international normalized ratio (INR) Disposition Disposition: Acute Care Hospital [facility] What to do if you have Problems For any increased pain, shortness of breath, bleeding, nausea or vomiting, chestpain, or any unexpected problems, contact your Primary Care Provider. Call [facility] ([phone]) or report to the closest Emergency Room. Call 911 if necessary. 11/14/22 1157 <Electronically signed by Neri Mitchell MD> Cosigner Signature (if applicable): CC: Dr. Rosemary Doran MD ~ Signed [facility] Work Phone: Discharge summary Author Sae Carballo [facility] December 28, 2022 11:09am Note Date/Time December 28, 2022 11:08am [facility] Medical Records Department [address] [place] [address] Instructions for Home/Discharge Instructions 12/28/22 110 MR#: [id number] Acct: [id number] Name: EZRA GONZALEZ Rep #:[id number] : 1935 87 From: Sae fleming MD [...] MD; Dr. Lynn Horn DO ~ Signed [facility] Work Phone: Evaluation note* Diagnosis Onset Date Resolution Status Atherosclerotic heart diseas e of [place] coronary artery without angina pectoris chronic Chronic diastolic (congestive) heart failure chronic Essential (primary) hypertension chronic Hyperlipidemia chronic Paroxysmal atrial fibrillation chronic [facility] Work Phone: Evaluation note* Diagnosis Onset Date Resolution Status Abnormality of gait and mobility acute Carotid stenosis acute Dementia acute Polyneuropathy acute Transient ischemic attack re solved [facility] Work Phone: Evaluation note* Diagnosis Onset Date Resolution Status Abnormality of gait and mobility acute Carotid stenosis acute Dementia acute Polyneuropathy acute Transient ischemic attack re solved Chronic diastolic (congestive) heart failure chronic Essential (primary) hypertension chronic Paroxysmal atrial fibrillation chronic History of coronary artery stent placement February 142006 resolved [facility] Work Phone: Evaluation note* Diagnosis Onset Date Resolution Status Abnormality of gait and mobility acute Carotid stenosis acute Dementia acute Polyneuropathy acute Transient ischemic attack re solved Chronic diastolic (congestive) heart failure chronic Essential (primary) hypertension chronic Paroxysmal atrial fibrillation chronic History of coronary artery stent placement February 142006 resolved Brain TIA acute Subtherapeutic international normalized ratio (INR) acute Paroxysmal atrial fibrillation [facility] Work Phone: Evaluation note* Diagnosis Onset Date Resolution Status Abnormality of gait and mobility acute Carotid stenosis acute Dementia acute Polyneuropathy acute Transient ischemic attack re solved Chronic diastolic (congestive) heart failure chronic Essential (primary) hypertension chronic History of coronary artery stent placement February 142006 resolved Brain TIA resolved Carotid stenosis acute [facility] Work Phone: Evaluation note* Diagnosis Onset Date Resolution Status Abnormality of gait and mobility acute Carotid stenosis acute Dementia acute Polyneuropathy acute Transient ischemic attack re solved Chronic diastolic (congestive) heart failure chronic Essential (primary) hypertension chronic History of coronary artery stent placement February 142006 resolved Brain TIA resolved Carotid stenosis acute Difficulty with speech acute Dysarthria acute [facility] Work Phone: Evaluation note* Diagnosis Onset Date Resolution Status Brain TIA resolved Carotid stenosis acute Difficulty with speech acute Dysarthria resolved Abnormality of gait and mobility acute Carotid stenosis acute Dementia acute Polyneuropathy acute Transient ischemic attack re solved [facility] Work Phone: Evaluation note* Diagnosis Onset Date Resolution Status Dementia acute Epilepsy acute Polyneuropathy acute Transient ischemic attack re solved [facility] Work Phone: Evaluation note* Diagnosis Onset Date Resolution Status Dementia acute Epilepsy acute Polyneuropathy acute Transient ischemic attack re solved Longstanding persistent atrial fibrillation acute Essential (primary) hypertension chronic History of coronary artery stent placement February 142006 resolved Dementia acute Epilepsy acute Polyneuropathy acute Transient ischemic attack re solved [facility] Work Phone: Evaluation note* Diagnosis Closed displaced fracture of medial condyle of right humerus, initial encounter- Primary Closed displaced fracture of medial condyle of right humerus, initial encounter documented [facility] encounter [facility] Additional Instructions Your work-up today does not show signs of heart attack or heart damage. Your Coumadin level/INR is therapeutic at 2.7. Please follow-up with your family doctor for repeat evaluation or return to the ER if you have any further [facility]WF[facility] Work Phone: Hospital Discharge instructionsAmbulatory Orders* Physical Therapy Referral Location: None Selected [facility] Work Phone: Hospital Discharge instructions Additional Instructions Will need to follow-up Lamictal level since it is a send out. Recommend follow- up appointment with her neurologist Dr. [facility]WF[facility]field [facility] Work Phone: Reason for referral (narrative)No reason for referral information availableWFairfield Medical Center Work Phone: Summary Purpose Family History No Family History Records Found Relationship Condition Age at Onset Recorded Date/T maggy father Coronary artery disease Unknown brother Coronary artery disease Unknown Advance Directives No Advanced Directives Records Found Advance Directive Response Recorded Date/ Time Advance Directives Yes November 10:13am Living Will No February 11 12:11am Power of Blind Hanger No February 11, 2022 12:11am Advance Directive Response Recorded Date/ Time Advance Directives Yes November 11:13am Living Will No November 14th, 2 022 1:11am Power of Blind Hanger No February 11, 2022 1:11am Advance Directive Response Recorded Date/ Time Advance Directives Yes November 11:13am Living Will No September 08, 2022 3:33pm Power of Blind Hanger No September 08 3:33pm Advance Directive Response Recorded Date/ Time Advance Directives Yes November 11:13am Living Will No November 14 11:07am Power of Blind Hanger No November 14, 2 023 11:07am Advance Directive Response Recorded Date/ Time Name of Medical Power of Blind Hanger Ty nguyen November 18, 2022 7:55am Advance Directives Yes November 11:13am Living Will Yes November 18 7:55am Power of Blind Hanger Yes November 18 023 7:55am Name of Medical Power of Blind Hanger Wilfredo [place] November 14, 2022 1:26pm Advance Directive Response Recorded Date/ Time Name of Medical Power of Blind Hanger Ty nguyen November 18, 2022 7:55am Name of Medical Power of Blind Hanger Wilfredo [place] November 14, 2022 1:26pm Advance Directives Yes November 11:13am Living Will No December 27, 2022 7:16pm Power of Blind Hanger No November 7:16pm Advance Directive Response Recorded Date/ Time Name of Medical Power of Blind Hanger Ty nguyen November 18, 2022 6:55am Name of Medical Power of Blind Hanger Wilfredo [employer] November 14, 2022 12:26pm Advance Directives Yes November 10:13am Living Will No December 27, 2022 6:16pm Power of Blind Hanger No November 6:16pm Advance Directive Response Recorded Date/ Time Advance Directives Yes November 10:13am Living Will No December 27, 2022 6:16pm Power of Blind Hanger No November 6:16pm Advance Directive Response Recorded Date/ Time Name of Medical Power of Blind Hanger SON--JACK June 16, 2023 8:32am Advance Directives Yes November 11:13am Living Will Yes June 16, 2023 8:32am Power of Blind Hanger Yes June 15 8:32am Latest Code Status on File Code Status Date Activated Date Inactivated Comments Full Code 06/16/2023 4:39 PM 06/20/2023 7:46 PM Advance Directive Response Recorded Date/ Time Living Will Yes June 16, 2023 7:32am Power of Blind Hanger Yes June 15 7:32am Advance Directives Yes November 10:13am Advance Directive Response Recorded Date/ Time Living Will Yes June 16, 2023 8:32am Do you have a Healthcare Power of Blind Hanger? Yes June 16, 2023 8:32am Advance Directives Yes November 11:13am Advance Directive Response Recorded Date/ Time Living Will No December 27, 2022 7:16pm Do you have a Healthcare Power of Blind Hanger? No December 27, 2022 7:16pm Living Will Yes June 16, 2023 8:32am Do you have a Healthcare Power of Blind Hanger? Yes June 16, 2023 8:32am Advance Directives Yes November 11:13am Advance Directive Response Recorded Date/ Time Living Will No December 27, 2022 7:16pm Do you have a Healthcare Power of Blind Hanger? No December 27, 2022 7:16pm Do you have a Healthcare Power of Blind Hanger? Yes September 08, 2024 12:26pm Advance Directives Yes November 11:13am Advance Directive Response Recorded Date/ Time Living Will No December 27, 2022 7:16pm Do you have a Healthcare Power of Blind Hanger? No December 27, 2022 7:16pm Do you have a Healthcare Power of Blind Hanger? Yes September 10, 2024 5:17pm Do you have a Healthcare Power of Blind Hanger? Yes September 08, 2024 12:26pm Advance Directives Yes November 11:13am Advance Directive Response Recorded Date/ Time Do you have a Healthcare Power of Blind Hanger? Yes September 10, 2024 5:17pm Do you have a Healthcare Power of Blind Hanger? 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 EORDER FOR LABS FROM DR JUAREZ Consult LEFT ICA STENOSIS Reason for Visit Abnormality of gait and mobility Carotid stenosis Dementia Polyneuropathy Transient ischemic attack Chief Complaint TIA SYMPTOMS, HX OF DM, AFIB 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 EORDER FOR LABS FROM DR JUAREZ Consult LEFT ICA STENOSIS 6 M FU W SHIP MATE per SHIP MATE GAIT,POLYNEUROPATHY,LUMBAR COMPRESSION FX/RX HERE GAIT DISORDER Reason for Visit Abnormality of gait and mobility Carotid stenosis Dementia Polyneuropathy Transient ischemic attack Chronic diastolic (congestive) heart failure Essential (primary) hypertension Paroxysmal atrial fibrillation History of coronary artery stent placement Chief Complaint TIA SYMPTOMS, HX OF DM, AFIB 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 EORDER FOR LABS FROM DR JUAREZ Consult LEFT ICA STENOSIS 6 M FU W SHIP MATE per SHIP MATE GAIT,POLYNEUROPATHY,LUMBAR COMPRESSION FX/RX HERE GAIT DISORDER TIA Reason for Visit Abnormality of gait and mobility Carotid stenosis Dementia Polyneuropathy Transient ischemic attack Chronic diastolic (congestive) heart failure Essential (primary) hypertension Paroxysmal atrial fibrillation History of coronary artery stent placement Brain TIA Subtherapeutic international normalized ratio (INR) Paroxysmal atrial fibrillation Chief Complaint TIA SYMPTOMS, HX OF DM, AFIB 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 EORDER FOR LABS FROM DR JUAREZ Consult LEFT ICA STENOSIS 6 M FU W SHIP MATE per SHIP MATE GAIT,POLYNEUROPATHY,LUMBAR COMPRESSION FX/RX HERE GAIT DISORDER TIA [...] LEFT ICA STENOSIS 6 M FU W SHIP MATE per SHIP MATE GAIT,POLYNEUROPATHY,LUMBAR COMPRESSION FX/RX HERE GAIT DISORDER TIA TIA (cardiology) TIA (cardiology) tia [facility] WORK CONSULT-CAROTID STENOSIS Reason for Visit Abnormality of gait and mobility Carotid stenosis Dementia Polyneuropathy Transient ischemic attack Chronic diastolic (congestive) heart failure Essential (primary) hypertension History of coronary artery stent placement Brain TIA Carotid stenosis Chief Complaint TIA SYMPTOMS, HX OF DM, AFIB 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 EORDER FOR LABS FROM DR JUAREZ Consult LEFT ICA STENOSIS 6 M FU W SHIP MATE per SHIP MATE GAIT,POLYNEUROPATHY,LUMBAR COMPRESSION FX/RX HERE GAIT DISORDER TIA TIA (cardiology) TIA (cardiology) tia [facility] WORK CONSULT-CAROTID STENOSIS LABWORK [facility] Reason for Visit Abnormality of gait and mobility Carotid stenosis Dementia Polyneuropathy Transient ischemic attack Chronic diastolic (congestive) heart failure Essential (primary) hypertension History of coronary artery stent placement Brain TIA Carotid stenosis Chief Complaint TIA SYMPTOMS, HX OF DM, AFIB 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 EORDER FOR LABS FROM DR JUAREZ Consult LEFT ICA STENOSIS 6 M FU W SHIP MATE per SHIP MATE GAIT,POLYNEUROPATHY,LUMBAR COMPRESSION FX/RX HERE GAIT DISORDER TIA TIA (cardiology) TIA (cardiology) tia [facility] WORK CONSULT-CAROTID STENOSIS LABWORK [facility] DYARTHRIA DYARTHRIA Reason for Visit Abnormality of gait and mobility Carotid stenosis Dementia Polyneuropathy Transient ischemic attack Chronic diastolic (congestive) heart failure Essential (primary) hypertension History of coronary artery stent placement Brain TIA Carotid stenosis Difficulty with speech Dysarthria Chief Complaint LEFT ICA STENOSIS 6 M FU W SHIP MATE per SHIP MATE GAIT,POLYNEUROPATHY,LUMBAR COMPRESSION FX/RX HERE GAIT DISORDER TIA TIA (cardiology) TIA (cardiology) tia [facility] WORK CONSULT-CAROTID STENOSIS LABWORK [facility] DYARTHRIA DYARTHRIA DYARTHRIA [facility] 4 month f/u EORDER Reason for Visit Chronic diastolic (c ongestive) heart failure Essential (primary) hypertension History of coronary artery stent placement Brain TIA Carotid stenosis Difficulty with speech Dysarthria Polyneuropathy Chief Complaint 6 M FU W SHIP MATE per SHIP MATE GAIT,POLYNEUROPATHY,LUMBAR COMPRESSION FX/RX HERE GAIT DISORDER TIA TIA (cardiology) TIA (cardiology) tia [facility] WORK CONSULT-CAROTID STENOSIS LABWORK [facility] DYARTHRIA DYARTHRIA DYARTHRIA [facility] 4 month f/u EORDER Reason for Visit Chronic diastolic (c ongestive) heart failure Essential (primary) hypertension History of coronary artery stent placement Brain TIA Carotid stenosis Difficulty with speech Dysarthria Abnormality of gait and mobility Carotid stenosis Dementia Polyneuropathy Transient ischemic attack Chief Complaint TIA TIA (cardiology) TIA (cardiology) tia [facility] WORK CONSULT-CAROTID STENOSIS LABWORK [facility] DYARTHRIA DYARTHRIA DYARTHRIA [facility] 4 month f/u EORDER [facility] Reason for Visit Brain TIA Carotid stenosis Difficulty with speech Dysarthria Abnormality of gait and mobility Carotid stenosis Dementia Polyneuropathy Transient ischemic attack Chief Complaint [facility] 4 month f/u EORDER [facility] Reason for Visit Dementia Epilepsy Polyneuropathy Transient ischemic attack Chief Complaint 4 month f/u EORDER [facility] 7 m fu 4 month f/u Reason for Visit Dementia Epilepsy Polyneuropathy Transient ischemic attack Longstanding persistent atrial fibrillation Essential (primary) hypertension History of coronary artery stent placement Dementia Epilepsy Polyneuropathy Transient ischemic attack Chief Complaint [facility] LABWORK 7 m fu 4 month f/u LABWORK Reason for Visit Longstanding persist ent atrial fibrillation Essential (primary) hypertension History of coronary artery stent placement Dementia Epilepsy Polyneuropathy Transient ischemic attack Chief Complaint [facility] LABWORK 7 m fu 4 month f/u LABWORK [place] Reason for Visit Longstanding persist ent atrial fibrillation Essential (primary) hypertension History of coronary artery stent placement Dementia Epilepsy Polyneuropathy Transient ischemic attack Chief Complaint [facility] WOR K [facility] LABWORK 7 m fu 4 month f/u LABWORK [place] LABWORK Reason for Visit Longstanding persist ent atrial fibrillation Essential (primary) hypertension History of coronary artery stent placement Dementia Epilepsy Polyneuropathy Transient ischemic attack Chief Complaint Admit Date [facility] February 05, 2024 5:00am [facility] March 04, 2024 5:00am [facility] March 08, 2024 5:00am [facility] March 10 4:00am LABWORK March 17, 2024 5:00am LABWORK March 19, 2024 5:00am LABWORK March 25, 2024 5:00am [facility] March 26 5:00am [facility] March 29 5:00am [facility] April 05, 2024 5:00am [facility] April 06, 2024 5:00am LABWORK April 09, 2024 5 :00am [facility] April 14, 2024 4:00am [facility] April 28, 2024 5:00am LABWORK May 05, 2024 5 :00am 8 mo fu May 10, 2024 2:34pm [facility] May 19 5:00am Reason for Visit Admit Date Dementia May 10, 2024 2:34pm Epilepsy May 10, 2024 2:34pm Transient ischemic attack May 10, 2024 2:34pm Chief Complaint Admit Date [facility] March 04, 2024 5:00am [facility] March 08, 2024 5:00am [facility] March 10 4:00am LABWORK March 17, 2024 5:00am LABWORK March 19, 2024 5:00am LABWORK March 25, 2024 5:00am [facility] March 26 5:00am [facility] March 29 5:00am [facility] April 05, 2024 5:00am [facility] April 06, 2024 5:00am LABWORK April 09, 2024 5 :00am [facility] April 14, 2024 4:00am [facility] April 28, 2024 5:00am LABWORK May 05, 2024 5 :00am 8 mo fu May 10, 2024 2:34pm [facility] May 12 5:00am [facility] May 19 5:00am [facility] June 09, 2024 5 :00am Chief Complaint Admit Date [facility] March 10 4:00am LABWORK March 17, 2024 5:00am LABWORK March 19, 2024 5:00am LABWORK March 25, 2024 5:00am [facility] March 26 5:00am [facility] March 29 5:00am [facility] April 05, 2024 5:00am [facility] April 06, 2024 5:00am LABWORK April 09, 2024 5 :00am [facility] April 14, 2024 4:00am [facility] April 28, 2024 5:00am LABWORK May 05, 2024 5 :00am 8 mo fu May 10, 2024 2:34pm [facility] May 12 5:00am [facility] May 19 5:00am [facility] June 09, 2024 5 :00am [facility] June 16, 2024 5 :00am [...] Admit Date LABWORK March 25, 2024 5:00am [facility] March 26 5:00am [facility] March 29 5:00am [facility] April 05, 2024 5:00am [facility] April 06, 2024 5:00am LABWORK April 09, 2024 5 :00am [facility] April 14, 2024 4:00am [facility] April 28, 2024 5:00am LABWORK May 05, 2024 5 :00am 8 mo fu May 10, 2024 2:34pm [facility] May 12 5:00am [facility] May 19 5:00am [facility] June 09, 2024 5 :00am [facility] June 16, 2024 5 :00am 1 Y FU July 01, 2024 10:3 5am [facility] July 19, 2024 4 :00am Chief Complaint Admit Date [facility] May 12 5:00am [facility] May 19 5:00am [facility] June 09, 2024 5 :00am [facility] June 16, 2024 5 :00am 1 Y FU July 01, 2024 10:3 5am [facility] July 19, 2024 4 :00am [facility] August 18, 2024 5:0 0am SEIZURE September 08, 2024 12:2 0pm Reason for Visit Admit Date Longstanding persistent atrial fibrillat ion July 01, 2024 10:35am Essential (primary) hypertension July 012024 10:35am History of coronary artery stent placeme nt July 01, 2024 10:35am Chief Complaint Admit Date [facility] May 19 5:00am [facility] June 09, 2024 5 :00am [facility] June 16, 2024 5 :00am 1 Y FU July 01, 2024 10:3 5am [facility] July 19, 2024 4 :00am [facility] August 18, 2024 5:0 0am SEIZURE September 08, 2024 12:2 0pm Chief Complaint Admit Date [facility] May 19 5:00am [facility] June 09, 2024 5 :00am [facility] June 16, 2024 5 :00am 1 Y FU July 01, 2024 10:3 5am [facility] July 19, 2024 4 :00am [facility] August 18, 2024 5:0 0am SEIZURE September 08, 2024 12:2 0pm STROKE VS SEIZURE September 10, 2024 4:03 pm Chief Complaint Admit Date [facility] May 19 5:00am [facility] June 09, 2024 5 :00am [facility] June 16, 2024 5 :00am 1 Y FU July 01, 2024 10:3 5am [facility] July 19, 2024 4 :00am [facility] August 18, 2024 5:0 0am [...] 2024 4 :03pm Chief Complaint Admit Date [facility] May 19 5:00am [facility] June 09, 2024 5 :00am [facility] June 16, 2024 5 :00am 1 Y FU July 01, 2024 10:3 5am [facility] July 19, 2024 4 :00am [facility] August 18, 2024 5:0 0am SEIZURE September 08, 2024 12:2 0pm STROKE VS SEIZURE September 10, 2024 4:03 pm STROKE VS SEIZURE September 11, 2024 12:1 4pm 2 SEIZURES/ IN [facility] September 13, 2024 2:04 pm EORDERS September 13, 2024 3:03 pm Reason for Visit Admit Date Longstanding persistent atrial fibrillat ion July 01, 2024 10:35am Essential (primary) hypertension July 012024 10:35am History of coronary artery stent placeme nt July 01, 2024 10:35am Difficulty with speech September 10, 2024 4 :03pm Epilepsy September 13, 2024 2:04 pm Chief Complaint Admit Date [facility] August 18, 2024 5:0 0am SEIZURE September 08, 2024 12:2 0pm STROKE VS SEIZURE September 10, 2024 4:03 pm STROKE VS SEIZURE September 11, 2024 12:1 4pm 2 SEIZURES/ IN [facility] September 13, 2024 2:04 pm EORDERS September 13, 2024 3:03 pm LABWORK September 17, 2024 5:00 am [facility] September 22, 2024 4: 00am [facility] September 24, 2024 5: 00am [facility] October 04, 2024 5:0 0am [facility] October 11, 2024 4: 00am [facility] October 25, 2024 5: 00am [...] 2:04pm Transient ischemic attack September 13 2:04pm 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 A ug2024 8:14am Lower extremity edema November 22, 2024 8:14am Atherosclerotic heart diseas e of [place] coronary artery without angina pectoris November 22, 2024 8:14am Essential (primary) hypertension November 22, 2024 8:14am Hyperlipidemia November 22, 2024 8: 14am Chief Complaint Admit Date SEIZURE September 08, 2024 12:2 0pm STROKE VS SEIZURE September 10, 2024 4:03 pm STROKE VS SEIZURE September 11, 2024 12:1 4pm 2 SEIZURES/ IN [facility] September 13, 2024 2:04 pm EORDERS September 13, 2024 3:03 pm LABWORK September 17, 2024 5:00 am [facility] September 22, 2024 4: 00am [facility] September 24, 2024 5: 00am [facility] October 04, 2024 5:0 0am [facility] October 11, 2024 4: 00am [facility] October 25, 2024 5: 00am LABWORK November 08, 2024 5: 00am See clinical notes; L.L> November 22 8:14am STAT LEFT LOWER EXT SWELLING October 9:07am LLE SWELLING November 22, 2024 9: 21am LABWORK November 30, 2024 5:00am LABOWRK December 24, 2024 5:00am Reason for Visit Admit Date Difficulty with speech September 10, 2024 4 :03pm Dementia September 13, 2024 2:04 pm Epilepsy September 13, 2024 2:04 pm Urinary tract infection September 13, 2024 2:04pm Transient ischemic attack September 13 2:04pm 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 A ugust 2024 8:14am Lower extremity edema November 22, 2024 8:14am Persistent atrial fibrillation November 222024 8:14am Atherosclerotic heart diseas e of [place] coronary artery without angina pectoris November 22, 2024 8:14am Essential (primary) hypertension November 22, 2024 8:14am Hyperlipidemia November 22, 2024 8: 14am Additional Source Comments INFORMATION SOURCE (unrecogn ized section and content) DATE CREATED AUTHOR 02/04/2018 [facility] DATE CREATED AUTHOR AUTHOR'S ORGANIZ ATION 11/12/2019 [facility] DATE CREATED AUTHOR AUTHOR'S ORGANIZ ATION 06/26/2023 [facility] DATE CREATED AUTHOR AUTHOR'S ORGANIZ ATION 01/29/2025 [facility] Source Comments (unrecognize d section and content) In the event this informatio n is protected by the Federal Confidentiality of Alcohol and Drug Abuse Patient Records regulations: The Federal rules restrict any use of the information to criminally investigate or prosecute any alcohol or drug abuse patient.[facility] the event this information is protected by the Federal Confidentiality of Alcohol and Drug Abuse Patient Records regulations: The Federal rules restrict any use of the information to criminally investigate or prosecute any alcohol or drug abuse patient.[facility] the event this information is protected by the Federal Confidentiality of Alcohol and Drug Abuse Patient Records regulations: The Federal rules restrict any use of the information to criminally investigate or prosecute any alcohol or drug abuse patient.[facility] the event this information is protected by the Federal Confidentiality of Alcohol and Drug Abuse Patient Records regulations: The Federal rules restrict any use of the information to criminally investigate or prosecute any alcohol or drug abuse patient.[facility] the event this information is protected by the Federal Confidentiality of Alcohol and Drug Abuse Patient Records regulations: The Federal rules restrict any use of the information to criminally investigate or prosecute any alcohol or drug abuse patient.[facility] Reason for Visit (unrecogniz ed section and content) Reason Onset Date Comments Refill Request Refill Request 11/11/2019 Reason Comments Arm Injury Pt arrives via [facility] from [facility] with complaints of right elbow fracture. Patient was sent here for ortho consult. No pain on arrival. Arrives with right arm splinted. Specialty Diagnoses / Procedures Referred By Contac t Referred To Contact Diagnoses Closed displaced fracture of medial condyle of right humerus, initial encounter Procedures .. Jayshree Cortez MD [address] [place] [address] [facility] [address] [place] [id number] Referral ID Status Reason Start Date Expiration Date Visits Re quested Visits Authorized [id number] 1 1 Telephone Encounter - Anne Marie [...] Visit date not found Patient Phone numbers: [phone] (home) Request is for script(s) to be [...] Provider Active Start: September 10, 2024 Dr. Oilvia Trinidad MD Other Provider Active Start: September [...] MD Primary Care Provider Active Suze Prebish MARKET RESEARCH MANAGER, MARKET RESEARCH MANAGER-C Attending Provider, Referring Pr ovider Active [...] Rosemary Doran MD Primary Care Provider Active Retail Advertising Executive Relationship Specialty Start Date End Date Alexandra Hagen [address] [place] [id number] PCP - General Family Medicine 06/20/23 Team [...] Inactive Member Role Status Dates Dr. Kvng Ohcoa DO Primary Care Provider Active Start: September [...] Status: Inactive Member Role Status Dates Dr. Knvg Ochoa DO Primary Care Provider Active Start: [...] Care Provider Active Start: November 22, 2024 Yinka Johnson PA Attending Provider Active St art: November 22, 2024 NADIA Mcdonald Referring Provider Active St art: November 22, 2024 Team Status: Inactive Member Role/Relationship Status Dates Dr. Kvng Ochoa , DO Primary Care Provider Active Start: November 22, 2024 End: November 22, 2024 NADIA Mcdonald Attending Provider Active St art: November 22, 2024 End: November 22, 2024 NADIA Mcdonald Referring Provider Active St art: November 22, 2024 End: November 22, 2024 Team Status: Active Member Role/Relationship Status Dates Dr. Kvng Ochoa DO Primary care physician Active Team Status: Inactive Member Role/Relationship Status Dates Dr. Anoop Blackmon MD Attending physician Active St art: September 08, 2024 End: September 08, 2024 Dr. Anoop Blackmon MD Referring Provider Active Sta rt: September 08, 2024 End: September 08, 2024 Dr. Anoop Blackmon MD Emergency Department Physician Active Start: September 08, 2024 End: September 08, 2024 Dr. Kvng MARTINEZ MD Primary care physician Activ e Start: September 08, 2024 End: September 08, 2024 Team Status: Inactive Member Role/Relationship Status Dates Dr. Kvng Ochoa DO Primary care physician Active Start: September 10, 2024 End: September 11, 2024 Dr. Teri Garcia DO Emergency Departm ent Physician Active Start: September 10, 2024 End: September 11, 2024 Dr. Matthew Oro DO Admitting physician Active Start: September 10 End: September 11, 2024 Dr. Matthew Oro DO Attending physician Active Start: September 10 End: September 11, 2024 Dr. Olivia Trinidad MD Nurse Practitioner Active St art: September 10, 2024 End: September 11, 2024 Dr. Janett French MD Nurse Practitioner Active St art: September 10, 2024 End: September 11, 2024 Julai Carpenter MD Nurse Practitioner Active S tart: September 10, 2024 End: September 11, 2024 Keyshawn Swan MS Nurse Practitioner Active Star t: September 10, 2024 End: September 11, 2024 Dr. Dmitriy Diop MD Nurse Practitioner Active Start: September 10, 2024 End: September 11, 2024 Meagan Edmondson MD Nurse Practitioner Active St art: September 10, 2024 End: September 11, 2024 MAMADOU HICKS MD Nurse Practitioner Active Star t: September 10, 2024 End: September 11, 2024 Cara Batista MD Nurse Practitioner Active S tart: September 10, 2024 End: September 11, 2024 Dr. Lorelei Pruett MD Nurse Practitioner Active S tart: September 10, 2024 End: September 11, 2024 Robinson Mayorga MD Nurse Practitioner Active St art: September 10, 2024 End: September 11, 2024 Aura Thurman MD Nurse Practitioner Active Sta rt: September 10, 2024 End: September 11, 2024 Eric Crowell MD Nurse Practitioner Active Start : September 10, 2024 End: September 11, 2024 Camila Mitchell MD Nurse Practitioner Active S tart: September 10, 2024 End: September 11, 2024 Dr. Glenna Jacobson DO Nurse Practitioner Active Start: September 10, 2024 End: September 11, 2024 Dr. Lenin Tamez MD Nurse Practitioner Active Start: September 10, 2024 End: September 11, 2024 Dr. Ml Morris MD Nurse Practitioner Active S tart: September 10, 2024 End: September 11, 2024 Dr. Chauncey Vaughn MD Nurse Practitioner Active St art: September 10, 2024 End: September 11, 2024 Dr. Nirmal Hummel MD Nurse Practitioner Active S tart: September 10, 2024 End: September 11, 2024 Dr. Rubén Michel MD Nurse Practitioner Active Start: September 10, 2024 End: September 11, 2024 Dr. Iggy Graves MD Nurse Practitioner Active Start: September 10, 2024 End: September 11, 2024 Dr. Liz Merrill MD Nurse Practitioner Active Start: September 10 End: September 11, 2024 Dr. Bala Perez MD Nurse Practitioner Active Start: September 10, 2024 End: September 11, 2024 Dr. Castillo Jones MD Nurse Practitioner Active Start: September 10, 2024 End: September 11, 2024 Dr. Daniel Leroy MD Nurse Practitioner Active Start: September 10, 2024 End: September 11, 2024 Dr. Cindy Horn MD Nurse Practitioner Active St art: September 10, 2024 End: September 11, 2024 Ashu Leonard MD Nurse Practitioner Active St art: September 10, 2024 End: September 11, 2024 Team Status: Active Member Role/Relationship Status Dates Dr. Kvng Ochoa DO Primary care physician Active Start: September 11, 2024 Dr. Teri Garcia DO Emergency Departm ent Physician Active Start: September 11, 2024 Dr. Matthew Oro DO Admitting physician Active Start: September 11 Dr. Matthew Oro , Attending physician Active Start: September 11 Dr. Matthew Oro DO Nurse Practitioner Active Start: September 11 Dr. Olivia Trinidad MD Nurse Practitioner Active St art: September 11, 2024 Dr. Janett French MD Nurse Practitioner Active St art: September 11, 2024 Julia Carpenter MD Nurse Practitioner Active S tart: September 11, 2024 Keyshawn Swan MS Nurse Practitioner Active Star t: September 11, 2024 Dr. Dmitriy Diop MD Nurse Practitioner Active Start: September 11, 2024 Meagan Edmondson MD Nurse Practitioner Active St art: September 11, 2024 MAMADOU HICKS MD Nurse Practitioner Active Star t: September 11, 2024 Cara Batista MD Nurse Practitioner Active S tart: September 11, 2024 Dr. Lorelei Pruett MD Nurse Practitioner Active S tart: September 11, 2024 Robinson Mayorga MD Nurse Practitioner Active St art: September 11, 2024 Aura Thurman MD Nurse Practitioner Active Sta rt: September 11, 2024 Eric Crowell MD Nurse Practitioner Active Start : September 11, 2024 Camila Mitchell MD Nurse Practitioner Active S tart: September 11, 2024 Dr. Glenna Jacobson DO Nurse Practitioner Active Start: September 11, 2024 Dr. Lenin Tamez MD Nurse Practitioner Active Start: September 11, 2024 Dr. Ml Morris MD Nurse Practitioner Active S tart: September 11, 2024 Dr. Chauncey Vaughn MD Nurse Practitioner Active St art: September 11, 2024 Dr. Nirmal Hummel MD Nurse Practitioner Active S tart: September 11, 2024 Dr. Rubén Michel MD Nurse Practitioner Active Start: September 11, 2024 Dr. Iggy Graves MD Nurse Practitioner Active Start: September 11, 2024 Dr. Liz Merrill MD Nurse Practitioner Active Start: September 11 Dr. Bala Perez MD Nurse Practitioner Active Start: September 11, 2024 Dr. Castillo Jones MD Nurse Practitioner Active Start: September 11, 2024 Dr. Daniel Leroy MD Nurse Practitioner Active Start: September 11, 2024 Dr. Cindy Horn MD Nurse Practitioner Active St art: September 11, 2024 Ashu Leonard MD Nurse Practitioner Active St art: September 11, 2024 Team Status: Inactive Member Role/Relationship Status Dates Dr. Kvng Ochoa DO Primary care physician Active Start: September 13, 2024 End: September 13, 2024 Dr. Kvng Ochoa DO Referring Provider Active Start: September 13, 2024 End: September 13, 2024 Dr. Anant Juarez MD Attending physician Active Start: September 13, 2024 End: September 13, 2024 Team Status: Inactive Member Role/Relationship Status Dates Dr. Kvng Ochoa DO Primary care physician Active Start: September 13, 2024 End: September 13, 2024 Dr. Anant Juarez MD Attending physician Active Start: September 13, 2024 End: September 13, 2024 Dr. Anant Juarez MD Referring Provider Active Start: September 13, 2024 End: September 13, 2024 Team Status: Active Member Role/Relationship Status Dates Dr. Kvng Ochoa DO Primary care physician Active Start: September 17, 2024 Cesar MARTINEZ MD Attending physician Active S tart: September 17, 2024 Team Status: Active Member Role/Relationship Status Dates Dr. Kvng Ochoa DO Primary care physician Active Start: September 22, 2024 Dr. Kvng MARTINEZ MD Attending physician Active Start: September 22, 2024 Dr. Kvng MARTINEZ MD Referring Provider Active Start: September 22, 2024 Team Status: Inactive Member Role/Relationship Status Dates Dr. Kvng Ochoa DO Primary care physician Active Start: September 24, 2024 End: September 24, 2024 Cesar MARTINEZ MD Attending physician Active S tart: September 24, 2024 End: September 24, 2024 Team Status: Active Member Role/Relationship Status Dates Dr. Kvng Ochoa DO Primary care physician Active Start: October 04, 2024 Cesar MARTINEZ MD Attending physician Active S tart: October 04, 2024 Team Status: Active Member Role/Relationship Status Dates Dr. Kvng Ochoa DO Primary care physician Active Start: October 11, 2024 Dr. Kvng MARTINEZ MD Attending physician Active Start: October 11, 2024 Dr. Kvng MARTINEZ MD Referring Provider Active Start: October 11, 2024 Team Status: Active Member Role/Relationship Status Dates Dr. Kvng Ochoa DO Primary care physician Active Start: October 25, 2024 Dr. Kvng MARTINEZ MD Attending physician Active Start: October 25, 2024 Team Status: Active Member Role/Relationship Status Dates Dr. Kvng Ochoa DO Primary care physician Active Start: November 08, 2024 Dr. Kvng MARTINEZ MD Attending physician Active Start: November 08, 2024 Team Status: Inactive Member Role/Relationship Status Dates Dr. Kvng Ochoa DO Primary care physician Active Start: November 22, 2024 End: November 22, 2024 Dr. Kvng Ochoa DO Referring Provider Active Start: November 22, 2024 End: November 22, 2024 NADIA Mcdonald Attending physician Active S tart: November 22, 2024 End: November 22, 2024 Team Status: Inactive Member Role/Relationship Status Dates Dr. Kvng Ochoa DO Primary care physician Active Start: November 22, 2024 End: November 22, 2024 Yinka Alex PA Attending physician Active S tart: November 22, 2024 End: November 22, 2024 Yinka Alex , PA Referring Provider Active St art: November 22, 2024 End: November 22, 2024 Team Status: Active Member Role/Relationship Status Dates Dr. Jamal Bruce MD Attending physician Active Start: November 22, 2024 Yinka Johnson PA Referring Provider Active St art: November 22, 2024 Team Status: Active Member Role/Relationship Status Dates Dr. Kvng Ochoa DO Primary care physician Active Start: November 30, 2024 Dr. Kvng MARTINEZ MD Attending physician Active Start: November 30, 2024 Team Status: Active Member Role/Relationship Status Dates Dr. Kvng Ochoa DO Primary care physician Active Start: December 24, 2024 Dr. Kvng MARTINEZ MD Attending physician Active Start: December 24, 2024 Team Status: Active Member Role/Relationship Status Dates Dr. Kvng Ochoa DO Primary care physician Active Start: December 30, 2024 Cesar MARTINEZ MD Attending physician Active S tart: December 30, 2024 Scheduled Active and Recently Administ ered [...] 2100, Do not crush or break. 1512 ([facility] Hold - Provider: Automatic Transfer Provider - Reason: Patient not available)2025 ([facility] Unhold - Provider: Automatic Transfer Provider)2126 (Given - Provider: Kirsty Vicente RN) 0837 (Given - Provider: Leona Sidhu RN)2147 (Given - Provider: Kirsty Vicente, RN) 923 (Given - Provider: Juanjo Villalba, RN) donepezil [...] 5 Units Above 400 6 Units 151 ([facility] Hold - Provider: Automatic Transfer Provider - Reason: Patient not available)2025 ([facility] Unhold - Provider: Automatic Transfer Provider)2131 (Given - Provider: Kirsty Vicente RN - Comment: bs 189) 2146 (Given - Provider: Kirsty Vicente RN) lamoTRIgine (LaMICtal) tablet 50 mg 50 mg, Oral, 2 times daily, First dose on Fri06/17/23 at 2145 0841 (Given - Provider: Odessa Wayne RN)151 ([facility] Hold - Provider: Automatic Transfer Provider - Reason: Patient not available)2025 ([facility] Unhold - Provider: Automatic Transfer Provider)2126 (Given - Provider: Kirsty Vicente RN) 08 (Given - Provider: Leona Sidhu RN)2147 (Given - Provider: Kirsty Vicente RN) 0924 (Given - Provider: Juanjo Villalba, JAYME) metoprolol tartrate (Lopressor) tablet 25 mg 25 mg, Oral, 2 times daily, First dose on Fri06/17/23 at 2145 0840 (Given - Provider: Odessa Wayne RN)151 ([facility] Hold - Provider: Automatic Transfer Provider - Reason: Patient not available)2025 ([facility] Unhold - Provider: Automatic Transfer Provider)2126 [...] Provider: Yvan Sepulveda RN - Reason: NPO)1511 ([facility] Hold - Provider: Automatic Transfer Provider - Reason: Patient not available)2025 ([facility] Unhold - Provider: Automatic Transfer Provider) [...] Wayne, RN)1435 (Stopped - Provider: Odessa Wayne, JAYME) PRN Medication Order 06/18/2023 06/19/2023 06/20/2023 acetaminophen (Tylenol) suppository 650 mg(Linked Group 2) 650 mg, Rectal, Every 6 hours PRN, mild pain (1-3), fever, For temp greater than 100.4 F (38 C), Starting on 06/16/23 at 1639, Administer if oral route cannot be used. Maximum dose of acetaminophen is 4000 mg from all sources in 24 hours. 1511 ([facility] Hold - Provider: Automatic Transfer Provider - Reason: Patient not available)2025 ([facility] Unhold - Provider: Automatic Transfer Provider) [...] Transfer Provider - Reason: Patient not available)2025 ([facility] Unhold - Provider: Automatic Transfer Provider) dextrose 5 % infusion 100 mL/hr, IntraVENous, PRN, Blood sugar less than 70mg/dL, Starting on Fri06/17/23 at 2131, Start infusion following administration of dextrose 50% or glucagon. 1511 ([facility] Hold - Provider: Automatic Transfer Provider - Reason: Patient not available)2025 ([facility] Unhold - Provider: Automatic Transfer Provider) [...] Glucostabilizer, dose as instructed per system. 1511 ([facility] Hold - Provider: Automatic Transfer Provider - Reason: Patient not available)2025 ([facility] Unhold - Provider: Automatic Transfer Provider) [...] 15 minutes x2 and notify provider. 1511 ([facility] Hold - Provider: Automatic Transfer Provider - Reason: Patient not available)2025 ([facility] Unhold - Provider: Automatic Transfer Provider) [...] 15 minutes x2 and notify provider. 1511 ([facility] Hold - Provider: Automatic Transfer Provider - Reason: Patient not available)2025 ([facility] Unhold - Provider: Automatic Transfer Provider) [...] of each other unless specifically ordered. 1511 ([facility] Hold - Provider: Automatic Transfer Provider - Reason: Patient not available)2025 ([facility] Unhold - Provider: Automatic Transfer Provider) naloxone (Narcan) injection 0.4 mg 0.4 mg, IntraVENous, Every 5 min PRN, opioid reversal, respiratory depression, Starting on Fri06/16/23 at 1647, +++ For RR <10, pinpoint pupils, over sedation for opioid reversal - MUST notify process description writer provider immediately after first dose, may give IM or SQ if no IV access +++ 1511 ([facility] Hold - Provider: Automatic Transfer Provider - Reason: Patient not available)2025 ([facility] Unhold - Provider: Automatic Transfer Provider) ondansetron (Zofran) injection 4 mg(Linked Group 3) 4 mg, IntraVENous, Every 6 hours PRN, nausea, vomiting, Starting on Fri06/16/23 at 1639, 1st Line. Give IV if patient is unable to take orally. If inadequate response within 60 minutes, proceed to next-line agent or contact provider if no further options ordered. 1511 ([facility] Hold - Provider: Automatic Transfer Provider - Reason: Patient not available)2025 ([facility] Unhold - Provider: Automatic Transfer Provider) [...] blister pack until just before administering. 1511 ([facility] Hold - Provider: Automatic Transfer Provider - Reason: Patient not available)2025 ([facility] Unhold - Provider: Automatic Transfer Provider) oxyCODONE (Roxicodone) immediate release tablet 2.5 mg(Linked Group 4) 2.5 mg, Oral, Every 4 hours PRN, moderate pain (4-6), Starting on Fri06/16/23 at 1639 1511 ([facility] Hold - Provider: Automatic Transfer Provider - Reason: Patient not available)2025 ([facility] Unhold - Provider: Automatic Transfer Provider) 0924 (See Alternative - Provider: Juanjo Villalba, RN) oxyCODONE (Roxicodone) immediate release tablet 5 mg(Linked Group 4) 5 mg, Oral, Every 4 hours PRN, severe pain (7-10), Starting on Fri06/16/23 at 1639 1512 ([facility] Hold - Provider: Automatic Transfer [...] bowel movement in past 24 hours. 1512 ([facility] Hold - Provider: Automatic Transfer [...] BE BASED ON THE PRIMARY CLINICAL RECORDS. [employer] [facility]. provides no warranty or guarantee of the accuracy or completeness of information in this document.
[2025-02-01 09:00] LABS: Prothrombin Time (Protime)PT. 28.4 SECONDS (11.7-14.9)
== END ==
PROVIDERS: Visit Provider Internal Medicine Cardiovascular Disease
DX: Z79.01 Long term (current) use 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 (principal)
CPT/HCPCS: 36415; 85610

== ENCOUNTER → 2025-02-15 | Outpatient (REF) | payer MEDICARE, SELFPAY ==
--- OUTSIDE RECORDS SUMMARY | 2025-02-15 03:12 | XMS RPT_ITS | CCD ---
Author Organization [facility] Care Team Providers Care Property Field Adjuster Name Role Phone LISHNEVSKI, ALEXIA Unavailable Unavailable [...] LISHNEVSKI, ALEXIA Unavailable Unavailable Villa Hebert Unavailable [phone] Patito Gonzalez Unavailable [phone] Nirmal Kemp Unavailable [phone] Mohan Álvarez Unavailable Bishop, Rickey Clive Unavailable [phone] Rosemary Doran Primary Care Provider Lishnevski, Alexia Primary Care Provider Zenaida Henderson Unavailable Dr. Rosemary Doran Primary Care Provider Dr. Rosemary Doran Referring Provider Roof POWER LINEWORKER, POWER LINEWORKER-Adeel Arnett Attending Provider Dr. Rosemary Doran Primary [...] Cole MD Attending Provider Unavailable Dr. Kvng Ohcoa MD Attending Provider Unavail able Dr. Anoop Blackmon MD Referring Provider Dr. Anoop Blackmon MD Emergency Provider Dr. Kvng Ochoa MD Primary Care Provider Unav ailable Dr. Alexandra Hagen MD Primary Care Provider Dr. Kvng Ochoa DO Primary Care Provider Dr. Teri Gacria DO Emergency Provider Dr. Matthew Oro DO Admit Provider Dr. Matthew Oro DO Attending Provider Amos LENNON, Dr. Baker Other Provider [phone] Dr. Janett French MD Other Provider [phone] Pauline LENNON, Julia Other Provider Sosa MS, Keyshawn Other Provider Jadon LENNON, Dr. Izaguirre Other Provider Delvis LENNON, Meagan Other Provider [phone] JULITA LENONN, MAMADOU Other Provider Lester LENNON, Cara Other Provider Flynn LENNON, Dr. Moseley Other Provider Mukesh LENNON, Robinson Other Provider [phone] Olman LENNON, Aura Other Provider Mervat LENNON, Eric Other Provider Unavailable Camila Mitchell MD Other Provider Unavailable Dr. Glenna Jacobosn DO Other Provider Joi LENNON, Dr. Phelps [...] Dr. Alexandra Leger Primary Care Provider [phone] Cesar Cole MD Attending Provider Unavailable Dr. [...] Nurse Practitioner Pauline LENNON, Julia Nurse Practitioner Sosa PEACE, Keyshawn Nurse Practitioner Jadon LENNON, Dr. Izaguirre Nurse Practitioner Delvis LENNON, Meagan Nurse Practitioner MAMADOU HICKS MD Nurse Practitioner Lester LENNON, Cara Nurse Practitioner Flynn LENNON, Dr. Moseley Nurse Practitioner Mukesh LENNON, Robinson Nurse Practitioner Olman LENNON, Aura Nurse Practitioner Mervat LENNON, Eric Nurse Practitioner Unavailable Stephen LENNON, Camila Nurse Practitioner Unavailab kamari Jacobson DO, Dr. Manzanares Nurse Practitioner Joi LENNON, Dr. Phelps Nurse Practitioner Alexandra LENNON, Dr. Bull Nurse Practitioner [phone] Johana LENNON, Dr. Grossman Nurse Practitioner Shaheed LENNON, Dr. Kinney Nurse Practitioner Marilu LENNON, Dr. Montana Nurse Practitioner Ely LENNON, Dr. Parkinson Nurse Practitioner Desirae LENNON, Dr. Liz Bagley Nurse Practitioner Chris LENNON, Dr. Mckenna Nurse Practitioner Karen LENNON, Dr. Chong Nurse Practitioner Mariaa LENNON, Dr. Sanchez Nurse Practitioner Kory LENNON, Dr. White Nurse Practitioner Unavailabl rajendra Leonard MD, [facility] Nurse Practitioner Unavailabl rajendra Oro DO, Dr. Castro Nurse Practitioner Jerrica LENNON, Dr. Ny Attending Physician Cesar Cole MD Attending Physician Unavailable Don LENNON, Dr. Locke Attending Physician Yinka Abrams Attending Physician Teo LENNON, Dr. Jamal Gu Attending Physician Alexandra Hagen Primary Care Unavailable Kvng Whalen Attending Unavailable Blackmon, Anoop Referring Unavailable Blackmon, Anoop Attending Unavailable Kvng Whalen Primary Care Unavailable Kvng Ochoa Primary Care Unavailable Cesar Murrieta Attending Unavailable Kvng Ochoa Primary Care Unavailable Kvng Whalen Attending Unavailable Kvng Whalen Referring Unavailable Alexandra Hagen Primary Care Unavailable Cesar Murrieta Attending Unavailable Kvng Ochoa Primary Care Unavailable Yinka Johnson Referring Unavailable Yinka Johnson Attending Unavailable vKng Ochoa Primary Care Unavailable Anant Juarez Referring Unavailable Anant Juarez Attending Unavailable Ochoa, Kvng Primary Care Unavailable Ademarion, Amir Consulting Unavailable Matthew Oro Admitting Unavailable [...] Horn Consulting Unavailable Ashu Leonard Consulting Unavailable Kvng Whalen Attending Unavailable Jolliff, Alexandra S Primary Care Unavailable Ochoakhris MARTINEZ Kvng Attending Unavailable Jolliff, Alexandra S Primary Care Unavailable Ochoa, Kvng Primary Care Unavailable Ochoakhris MARTINEZ Kvng Attending Unavailable Jolliff, Alexandra S Primary Care Unavailable BadAnant Cardenas Attending Unavailable Ochoa OLS Kvng Attending Unavailable Jolliff, Alexandra S Primary Care Unavailable Douglas OLS Garber Attending Unavailable Douglas OLS, Cesar Referring Unavailable Jolliff, Alexandra S Primary Care Unavailable Jolliff, Alexandra S Primary Care Unavailable Ochoa JUAN Kvng Attending Unavailable Jolliff, Alexandra S Primary [...] Care Unavailable Ochoa OLS, Kvng Attending Unavailable Anant Juarez Attending Unavailable Jolliff, Alexandra S Primary Care Unavailable Rosemary Doran Referring Unavailable Ochoa JUAN, Kvng Attending Unavailable Jolliff, Alexandra S Primary Care Unavailable Ochoa OLS, Kvng Referring Unavailable Jolliff, Alexandra S Referring Unavailable Jolliff, Alexandra S Primary Care Unavailable Douglas, Cesar Attending Unavailable Ochoa, Kvng Primary Care Unavailable Ochoa, Kvng Referring Unavailable Yinka Johnson Attending Unavailable Ochoa, Kvng Primary Care Unavailable [...] Horn Consulting Unavailable Ashu Leonard Consulting Unavailable Don, Kvng Primary Care Unavailable Don Kvng Referring Unavailable Anant Juarez Attending Unavailable Kvng Ochoa Referring Unavailable GilbertdoAnant quarles Attending Unavailable Ochoa, Kvng Primary Care Unavailable Ochoa, Kvng Primary Care Unavailable Douglas OLS, Cesar Attending Unavailable Jolliff, Alexandra S Primary Care Unavailable Ochoa OLS, Kvng Attending Unavailable Ochoa, Kvng Primary Care Unavailable Douglas OLS, Cesar Attending Unavailable Douglas OLS, Garber Attending Unavailable Jolliff, Alexandra S Primary Care Unavailable Ochoa OLS, Kvng Attending Unavailable Jolliff, Alexandra S Primary Care Unavailable Jolliff, Alexandra S Primary Care Unavailable Ochoa OLS, Kvng Attending Unavailable Douglas OLS, Garber Attending Unavailable Jolliff, Alexandra S Primary Care Unavailable Ochoa, Kvng Primary Care Unavailable Ochoa JUAN, Kvng Attending Unavailable Ochoa, Kvng Primary Care Unavailable Ochoa JUAN, Kvng Attending Unavailable Ochoa, Kvng Primary Care Unavailable Kvng Whalen Attending Unavailable Kvng Ochoa Primary Care Unavailable Cesar Murrieta Attending Unavailable Alexandra Hagen Primary Care Unavailable Kvng Whalen Attending Unavailable Allergies Allergy Classification Reported Allergen(s) Allergy Type Date of Onset Reaction(s) Facility (20 sources) atorvastatin; Translations: [ATORVASTATIN] Drug Allergy 5 Other: See Comments [facility] Repository (20 sources) codeine; Translations: [CODEINE] Drug Allergy 5 Unknown [facility] Repository (20 sources) Latex; Translations: [LATEX] Propensity to adverse reactions (disorder) 5 Rash, Itching [facility] Repository (20 sources) meperidine; Translations: [MEPERIDINE] Drug Allergy 5 GI Upset [facility] Repository (20 sources) rosuvastatin; Translations: [ROSUVASTATIN] Drug Allergy 5 Other: See Comments [facility] Repository (20 sources) Amiodarone Drug Allergy 2 "Hair falling out in gobs", hair loss [facility] (1 source) Amiodarone Drug Allergy 5 [facility] Repository Medications Current Medications Medication Drug Class(es) [...] C Start: 05-19-2023 take 1 tablet by once daily calcium carbonate 1500 mg / [...] release tablet 2.5 mg polyethylene glycol [id number] mg powder for oral solution (4 sources) [...] 1 x 3 mg tablet 90 April 07, 2024 5:46pm April 30, [...] mg Instructions: 1 x 3 mg tablet April 30, 2024 3:49pm September 10, 2024 [...] 1:03am Closed 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 lumbar vertebra halfway current use of anticoagulant therapy 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 Anant baez MD Age/Sex: 89/F Location: [facility] Status: Signed HPI [facility] Chief Complaint: Details: Interim History: Ezra [...] had difficulty managing her finances in an saddle maker way. She has become lost while driving [...] 36 (n (more content not included)... Normal [facility] International normalized rat io (INR) measurement by fingerstickOrdered By: Cesar Cole on 12-30-2024 INR Coag (BldC) [Relative time] 2.0 [facility] Comment on above: Critical Value > 4.0 Whole blood prothrombin time Ordered By: Cesar Cole on 12-30-2024 PT Coag (Bld) [Time] 22.4 s High 11.7-14.9 [facility] Anion gap in Serum or Plasma Ordered By: Kvng Ochoa on 12-24-2024 Anion gap [Moles/Vol] 14 mmol/L 5-15 [facility] BUN/creatinine ratioOrdered By: Kvng Ochoa on 12-24-2024 Urea nitrogen/Creatinine [Mass ratio] 23.8 mg/mg High 10-20 [facility] Bilirubin Test strip Ql (U)O rdered By: Kvng Ochoa on 12-24-2024 Bilirubin Ql (U) Negative Negative [facility] Carbon dioxide, total [Moles /volume] in Central venous bloodOrdered By: Kvng Ochoa on 12-24-2024 CO2 [Moles/Vol] 21.5 mmol/L 21.0-32.0 [facility] Chloride assayOrdered By: Costa Ochoa on 12-24-2024 Chloride [Moles/Vol] 104 mmol/L 98-108 [facility] Erythrocyte distribution wid th ratioOrdered By: Kvng Ochoa on 12-24-2024 Erythrocyte distribution width (RBC) [Ratio] 12.8 % 11.6-14.6 [facility] Erythrocyte distribution wid th standard deviationOrdered By: Kvng Ochoa on 12-24-2024 Erythrocyte distribution width (RBC) [Ratio] 44.9 fl High 35.1-43.9 [facility] Glomerular filtration rate ( GFR) estimation/1.73 sq m using serum, plasma, or whole bOrdered By: Kvng Ochoa on 12-24-2024 GFR/1.73 sq M.predicted among non-blacks MDRD (S/P/Bld) [Vol rate/Area] 83 mL/min/{1.73_m2} >60 [facility] Comment on above: mL/min/1.73m2 CKD-EP I Creatinine Equation (2020) Hematocrit Auto (Bld) [Volum e fraction]Ordered By: Kvng Ochoa on 12-24-2024 Hematocrit (Bld) [Volume fraction] 40.3 % 37-47 [facility] Hemoglobin measurementOrdere d By: Kvng Ochoa on 12-24-2024 Hemoglobin (Bld) [Mass/Vol] 13.5 g/dL 12.0-15.0 [facility] Ketones Test strip Ql (U)Ord ered By: Kvng Ochoa on 12-24-2024 Ketones Ql (U) Negative Negative [facility] MCV (mean corpuscular volume ) determinationOrdered By: Kvng Ochoa on 12-24-2024 MCV (RBC) [Entitic vol] 96.0 fL 81-99 [facility] Mean corpuscular hemoglobin (MCH) determinationOrdered By: Kvng Ochoa on 12-24-2024 MCH (RBC) [Entitic mass] 32.1 pg High 27.0-32.0 [facility] Mean corpuscular hemoglobin concentration (MCHC) determinationOrdered By: Kvng Ochoa on 12-24-2024 MCHC (RBC) [Mass/Vol] 33.5 g/dL 32-36 [facility] Mean platelet volume determi nationOrdered By: Kvng Ochoa on 12-24-2024 Platelet mean volume (Bld) [Entitic vol] 11.0 fL 6.2-12.0 [facility] Microscopic analysis of urin e for red blood cells (RBC)Ordered By: Kvng Ochoa on 12-24-2024 Microscopic analysis of urine for red blood cells (RBC) 0 SEEN /hpf 0-5 [facility] Mucus LM Ql (Urine sed)Order ed By: Kvng Ochoa on 12-24-2024 Mucus Ql (Urine sed) 0 SEEN /hpf [facility] Nitrite Test strip Ql (U)Ord ered By: Kvng Ochoa on 12-24-2024 Nitrite Ql (U) Positive High Negative [facility] Platelet countOrdered By: Costa Ochoa on 12-24-2024 Platelets (Bld) [#/Vol] 298 10*3/uL 150-450 [facility] Potassium measurement (mass/ volume)Ordered By: Kvng Ochoa on 12-24-2024 Potassium (Unsp spec) [Mass/Vol] 4.8 mmol/L 3.3-5.1 [facility] Comment on above: Hemolysis present, R esults could be affected. Protein Test strip Ql (U)Ord ered By: Kvng Ochoa on 12-24-2024 Protein Ql (U) Negative Negative [facility] RBC Auto (Bld) [#/Vol]Ordere d By: Kvng Ochoa on 12-24-2024 RBC (Bld) [#/Vol] 4.20 10*6/uL 4.2-5.4 [facility] Serum creatinine measurement (mass/volume)Ordered By: Kvng Ochoa on 12-24-2024 Creatinine [Mass/Vol] 0.69 mg/dL Low 0.70-1.20 [facility] Serum glucose measurement (m ass/volume)Ordered By: Kvng Ochoa on 12-24-2024 Glucose [Mass/Vol] 127 mg/dL High 70-99 [facility] Serum or plasma calcium viktoria urement (mass/volume)Ordered By: Kvng Ochoa on 12-24-2024 Calcium [Mass/Vol] 9.0 mg/dL 7.6-11.0 [facility] Serum or plasma lamotrigine measurement (mass/volume)Ordered By: Kvng Ochoa on 12-24-2024 lamoTRIgine [Mass/Vol] < 1.0 ug/mL Low 2.0-20.0 [facility] Comment on above: Detection Limit = 1. 0Performed at: [facility] [address] [id number] Director: Brandon Wells MD, Phone: [phone] Serum or plasma urea nitroge n measurement (mass/volume)Ordered By: Kvng Ochoa on 12-24-2024 Urea nitrogen [Mass/Vol] 17 mg/dL 4-19 [facility] Sodium levelOrdered By: Dru Ochoa on 12-24-2024 Sodium [Moles/Vol] 140 mmol/L 133-145 [facility] Squamous epithelial cells de tection in urine sediment by light microscopyOrdered By: Kvng Ochoa on 12-24-2024 Epithelial cells.squamous LM Ql (Urine sed) 0 SEEN /hpf 5-10 [facility] Urine clarityOrdered By: Alexander Ochoa on 12-24-2024 Clarity (U) Clear Clear [facility] Urine color determinationOrd ered By: Kvng Ochoa on 12-24-2024 Color (U) Yellow Yellow [facility] Urine cultureOrdered By: Alexander Ochoa on 12-24-2024 Bacteria identified Cx Nom (U) Klebsiella pneumoniae sp pneum Abnormal [facility] Urine glucose detectionOrder ed By: Kvng Ochoa on 12-24-2024 Glucose Ql (U) Normal mg/dl Normal [facility] Urine leukocyte esterase det ection by dipstickOrdered By: Kvng Ochoa on 12-24-2024 Leukocyte esterase Test strip Ql (U) 100 /ul High Negative [facility] Urine pHOrdered By: Kvng holley on 12-24-2024 pH (U) 6.5 [pH] 5.0 - 8.0 [facility] Urine sediment bacteria coun t by microscopy (number/high power field)Ordered By: Kvng Ochoa on 12-24-2024 Bacteria LM.HPF (Urine sed) [#/Area] 2 /[HPF] None Seen [facility] Urine specific gravity measu rementOrdered By: Kvng Ochoa on 12-24-2024 Specific gravity (U) [Rel density] 1.010 1.002-1.030 [facility] Urine urobilinogen measureme ntOrdered By: Kvng Ochoa on 12-24-2024 Urobilinogen Ql (U) Normal mg/dl Normal [facility] White blood cell (WBC) count Ordered By: Kvng Ochoa on 12-24-2024 WBC (Bld) [#/Vol] 10.6 10*3/uL 4.4-11.0 [facility] White blood cell countOrdere d By: Kvng Ochoa on 12-24-2024 White blood cell count 0-5 SEEN /hpf 0-5 [facility] International normalized rat io (INR) measurement by fingerstickOrdered By: Kvng Ochoa on 11-30-2024 INR Coag (BldC) [Relative time] 2.8 [facility] Comment on above: Critical Value > 4.0 Whole blood prothrombin time Ordered By: Kvng Ochoa on 11-30-2024 PT Coag (Bld) [Time] 29.1 s High 11.7-14.9 [facility] Venous duplex ultrasound rep ortOrdered By: Jamal Bruce on 11-23-2024 US Vein [facility] [address] [place] [address] Venous Duplex US, Unilateral 11/22/24 0921 MR#: [id number] Acct: [id number] Name: EZRA GONZALEZ Rep #:[id number] : 1935 89 From: Jamal Bruce MD [...] and/or faxed to T/P Trunk is compressible. [facility]. PTV is compressible. LT PerV [...] Physician: Yinka Johnson Performed By: Lucas Watts, PERLA 11/23/242215 Date _ Jamal Bruce MD CC: Dr. Kvng Ochoa DO; NADIA Mcdonald ~ Date Dictated: 11/22/24920 Date Transcribed: 11/23/242215 [employer]: Signed [facility] Other Phone: Cardiology Visit Reporton Cardiology Visit Report [facility] [address] [place] [address] OFFICE VISIT Date of Service: 11/22/24 MR#: [id number] Acct: [id number] Name: EZRA GONZALEZ Rep #: [id number] : 1935 Provider: NADIA Mcdonald Age/Sex: 89/F [place] [facility] [place] Status: Signed HPI HPI History of [...] back into atrial fibrillation. She resides at [facility]. Upon presentation today, patient reports back [...] Intake Visit Reasons: See clinical notes; L.L> Glaze Mixer Required: No Is patient in pain?: No [...] mg 1 (more content not included)... Normal [facility] Venous Duplex US, Unilateral on 11-22-2024 Venous Duplex US, Unilateral [facility] [address] [place] [address] Venous Duplex US, Unilateral 11/22/24 0921 MR#: [id number] Acct: [id number] Name: EZRA GONZALEZ Rep #: [id number] : 1935 89 From: Jamal Bruce MD [...] and/or faxed to T/[employer] Trunk is compressible. [facility]. PTV is compressible. LT PerV [...] Performed By: Lucas Watts, T 11/23/242215 Date Jamal Bruce MD CC: Dr. Kvng Ochoa DO; NADIA Mcdonald Date Dictated: 11/22/24920 Date Transcribed: 11/23/242215 [employer]: Signed Normal [facility] International normalized rat io (INR) measurement by fingerstickOrdered By: Kvng Ochoa on 11-08-2024 INR Coag (BldC) [Relative time] 2.8 [facility] Comment on above: Critical Value > 4.0 Whole blood prothrombin time Ordered By: Kvng Ochoa on 11-08-2024 PT Coag (Bld) [Time] 29.6 s High 11.7-14.9 [facility] International normalized rat io (INR) calculationOrdered By: Kvng Ochoa on 10-25-2024 INR Coag (Bld) [Relative time] 3.3 {INR} [facility] International normalized rat io (INR) measurement by fingerstickOrdered By: Kvng Ochoa on 10-25-2024 INR Coag (BldC) [Relative time] 4.0 Critically high [facility] Comment on above: Critical Value > 4.0 Prothrombin timeOrdered By: Kvng Ochoa on 10-25-2024 PT Coag (PPP) [Time] 34.2 s High 11.7-14.9 [facility] Whole blood prothrombin time Ordered By: Kvng Ochoa on 10-25-2024 PT Coag (Bld) [Time] 39.6 s High 11.7-14.9 [facility] International normalized rat io (INR) measurement by fingerstickOrdered By: Kvng Ochoa on 10-11-2024 INR Coag (BldC) [Relative time] 2.8 [facility] Comment on above: Critical Value > 4.0 Whole blood prothrombin time Ordered By: Kvng Ochoa on 10-11-2024 PT Coag (Bld) [Time] 29.0 s High 11.7-14.9 [facility] International normalized rat io (INR) measurement by fingerstickOrdered By: Cesar Cole on 10-04-2024 INR Coag (BldC) [Relative time] 3.4 [facility] Comment on above: Critical Value > 4.0 Whole blood prothrombin time Ordered By: Cesar Cole on 10-04-2024 PT Coag (Bld) [Time] 34.8 s High 11.7-14.9 [facility] International normalized rat io (INR) measurement by fingerstickOrdered By: Cesar Cole on 09-24-2024 INR Coag (BldC) [Relative time] 2.0 [facility] Comment on above: Critical Value > 4.0 Whole blood prothrombin time Ordered By: Cesar Cole on 09-24-2024 PT Coag (Bld) [Time] 21.6 s High 11.7-14.9 [facility] Anion gap in Serum or Plasma Ordered By: Kvng Ochoa on 09-22-2024 Anion gap [Moles/Vol] 12 mmol/L 5-15 [facility] BUN/creatinine ratioOrdered By: Kvng Ochoa on 09-22-2024 Urea nitrogen/Creatinine [Mass ratio] 29.4 mg/mg High 10-20 [facility] Calculated very low density lipoprotein (VLDL) cholesterol measurementOrdered By: Kvng Ochoa on 09-22-2024 Calculated very low density lipoprotein (VLDL) cholesterol measurement 24 mg/dL 5-40 [facility] Carbon dioxide, total [Moles /volume] in Central venous bloodOrdered By: Kvng Ochoa on 09-22-2024 CO2 [Moles/Vol] 23.8 mmol/L 21.0-32.0 [facility] Chloride assayOrdered By: Costa Ochoa on 09-22-2024 Chloride [Moles/Vol] 105 mmol/L 98-108 [facility] Glomerular filtration rate ( GFR) estimation/1.73 sq m using serum, plasma, or whole bOrdered By: Kvng Ochoa on 09-22-2024 GFR/1.73 sq M.predicted among non-blacks MDRD (S/P/Bld) [Vol rate/Area] 52 mL/min/{1.73_m2} Low >60 [facility] Comment on above: mL/min/1.73m2 CKD-EP I Creatinine Equation (2020) LDL calc ser/plasOrdered By: Kvng Ochoa on 09-22-2024 Cholesterol in LDL [Mass/Vol] 109 mg/dL [facility] Comment on above: Cavngxalci=420-625 m g/dL & Higher Rnrb=609 mg/dL or greater Potassium measurement (mass/ volume)Ordered By: Kvng Ochoa on 09-22-2024 Potassium (Unsp spec) [Mass/Vol] 4.8 mmol/L 3.3-5.1 [facility] Screening total cholesterol/ high density lipoprotein (HDL) cholesterol ratioOrdered By: Kvng Ochoa on 09-22-2024 Cholesterol.total/Cholest felipe in HDL [Mass ratio] 3.13 {ratio} [facility] Serum creatinine measurement (mass/volume)Ordered By: Kvng Ochoa on 09-22-2024 Creatinine [Mass/Vol] 1.03 mg/dL 0.70-1.20 [facility] Serum glucose measurement (m ass/volume)Ordered By: Kvng Ochoa on 09-22-2024 Glucose [Mass/Vol] 123 mg/dL High 70-99 [facility] Serum or plasma calcium viktoria urement (mass/volume)Ordered By: Kvng Ochoa on 09-22-2024 Calcium [Mass/Vol] 9.0 mg/dL 7.6-11.0 [facility] Serum or plasma cholesterol in HDL measurement (mass/volume)Ordered By: Kvng Ochoa on 09-22-2024 Cholesterol in HDL [Mass/Vol] 62 mg/dL >40 [facility] Comment on above: National Cholesterol Education Program (NCEP) guidelines:<40 mg/dL: Low HDL-cholesterol (major risk factor for CHD)>= 60 mg/dL: High HDL-cholesterol (negative risk factor for CHD)HDL-cholesterol is affected by a number of factors, e.g. smoking, exercise, hormones, sex and age. Serum or plasma cholesterol measurement (mass/volume)Ordered By: Kvng Ochoa on 09-22-2024 Cholesterol [Mass/Vol] 195 mg/dL <201 [facility] Comment on above: Cholesterol level, D esirable <200 mg/dLBorderline high cholesterol 200-239 mg/dLHigh cholesterol >=240 mg/dLRecommendations of the NCEP Adult Treatment Panel for the following risk-cutoff thresholds for the [place] population. Serum or plasma urea nitroge n measurement (mass/volume)Ordered By: Kvng Ochoa on 09-22-2024 Urea nitrogen [Mass/Vol] 30 mg/dL High 4-19 [facility] Sodium levelOrdered By: Dru Ochoa on 09-22-2024 Sodium [Moles/Vol] 140 mmol/L 133-145 [facility] Triglycerides measurementOrd ered By: Kvng Ochoa on 09-22-2024 Triglyceride [Mass/Vol] 118 mg/dL <199 [facility] Comment on above: The drugs N-Acetylcy steine and Metamizole may falsely depress this assay. Normal range: <150 mg/dLBorderline High: 150-199 mg/dLHigh: 200-499 mg/dLVery High: >500 mg/dL International normalized rat io (INR) measurement by fingerstickOrdered By: Cesar Cole on 09-17-2024 INR Coag (BldC) [Relative time] 1.5 [facility] Comment on above: Critical Value > 4.0 Whole blood prothrombin time Ordered By: Cesar Cole on 09-17-2024 PT Coag (Bld) [Time] 17.2 s High 11.7-14.9 [facility] KEPPRA (LEVETIRACETAM)on KEPPRA <2.0 Abnormal 10.0-40.0 [facility] Comment on above: Performed By: #### L 503.5510, L3310.0000, L3300.4400 ####[facility] [address] [place], [address] Lamotrigine (Lamictal) Level on 09-16-2024 LAMOTRIGINE 1.7 ug/mL Low 2.0-20.0 [facility] Comment on above: Result Comment: Dete ction Limit = 1.0 Performed at: - [facility] [address], [place], [place] [id number] Paper Carrier: Brandon Wells MD, Phone: [phone] Performed By: #### L 503.5510, L3310.0000, L3300.4400 ####[facility] [address] [place], [address] Ammoniaon 09-13-2024 Ammonia (P) [Moles/Vol] 28.9 umol/L Normal 11-51 [facility] Comment on above: Performed By: #### L 503.5510, L3310.0000, L3097.4408 ####[facility] [address] [place], [place], [id number] LevetiracetamOrdered By: Royce Juarez on 09-13-2024 levETIRAcetam [Mass/Vol] ug/mL Low 10.0-40.0 [facility] Neurology Visit Reporton Neurology Visit Report [facility] [address], [address] [place], [place] [id number] OFFICE VISIT Date of Service: 09/13/24 MR#: [id number] Acct: [id number] Name: EZRA GONZALEZ Rep #: [id number] : 1935 Provider: Dr. Anant baez MD Age/Sex: 89/F [place] [facility] [place] [place] Signed HPI [facility] Chief Complaint: Details: Interim History: Ezra [...] had difficulty managing her finances in an saddle maker way. 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 Normal [facility] Serum or plasma lamotrigine measurement (mass/volume)Ordered By: Anant Juarez on 09-13-2024 lamoTRIgine [Mass/Vol] 1.7 ug/mL Low 2.0-20.0 [facility] Comment on above: Detection Limit = 1. 0Performed at: BN - [facility] [address] [place], [place] [id number] Director: Brandon Wells MD, Phone: [phone] Venous blood ammonia measure mentOrdered By: Anant Juarez on 09-13-2024 Ammonia (P) [Moles/Vol] 28.9 umol/L [facility] Lamotrigine (Lamictal) Level on 09-12-2024 LAMOTRIGINE 1.2 ug/mL Low 2.0-20.0 [facility] Comment on above: Result Comment: Dete ction Limit = 1.0 Performed at: [address] [id number] Paper Carrier: Brandon Wells MD, Phone: [phone] Performed By: #### L 100.0100, L500.2500, L300.3900, L3300.4400 ####[facility] [address] [place], [place], [address] Urine Cultureon 09-12-2024 URC Klebsiella pneumonia e sp pneum [place] Count 80,000-100,000 Klebsiella pneumoniae sp pneum: REACTION [...] Islt MELINDA <=20 S Normal [facility] Comment on above: Performed By: #### M 100.2200 ####[facility] [address] [place], [place], [address] Anion gap in Serum or Plasma Ordered By: Matthew Oro on 09-11-2024 Anion gap [Moles/Vol] 12 mmol/L 08-12 [facility] BUN/creatinine ratioOrdered By: Matthew Oro on 09-11-2024 Urea nitrogen/Creatinine [Mass ratio] 30.4 mg/mg High 01-17 [facility] Basic Metabolic Profile (BMP )on 09-11-2024 BUN/CRE 30.4 RATIO [facility] Comment on above: Order Comment: Comme nts: NPO at [place] prior to lipid panel Performed By: #### L 500.4100, L100.0500, L500.2500 #### [facility] Laboratory [address] [place], [address] Calcium [Mass/Vol] 8.8 mg/dL Normal 7.6-11.0 [facility] Comment on above: Order Comment: Comme nts: NPO at [place] prior to lipid panel Performed By: #### L 500.4100, L100.0500, L500.2500 #### [facility] Laboratory [address] [place], [address] Chloride [Moles/Vol] 105 mmol/L Normal 98-108 [facility] Comment on above: Order Comment: Comme nts: NPO at [place] prior to lipid panel Performed By: #### L 500.4100, L100.0500, L500.2500 #### [facility] Laboratory [address] [place], [address] CO2 [Moles/Vol] 21.6 mmol/L Normal 21.0-32.0 [facility] Comment on above: Order Comment: Comme nts: NPO at [place] prior to lipid panel Performed By: #### L 500.4100, L100.0500, L500.2500 #### [facility] Laboratory [address] [place], [address] Creatinine [Mass/Vol] 0.91 mg/dL Normal 0.70-1.20 [facility] Comment on above: Order Comment: Comme nts: NPO at [place] prior to lipid panel Performed By: #### L 500.4100, L100.0500, L500.2500 #### [facility] Laboratory [address] [place], [address] ECRCL 41.34 ml/min Low 50-250 [facility] Comment on above: Order Comment: Comme nts: NPO at [place] prior to lipid panel Performed By: #### L 500.4100, L100.0500, L500.2500 #### [facility] [address] [place], [address] GAP 12 Normal 5-15 [facility] Comment on above: Order Comment: Comme nts: NPO at [place] prior to lipid panel Performed By: #### L 500.4100, L100.0500, L500.2500 #### [facility] [address] [place], [address] GFR/1.73 sq M.predicted among non-blacks MDRD (S/P/Bld) [Vol rate/Area] 61 mL/min/{1.73_m2} Normal >60 [facility] Comment on above: Order Comment: Comme nts: NPO at [place] prior to lipid panel Result Comment: mL/m in/1.73m2 CKD-EPI Creatinine Equation (2020) Performed By: #### L 500.4100, L100.0500, L500.2500 #### [facility] [address] [place], [address] Glucose [Mass/Vol] 118 mg/dL High 70-99 [facility] Comment on above: Order Comment: Comme nts: NPO at [place] prior to lipid panel Performed By: #### L 500.4100, L100.0500, L500.2500 #### [facility] [address] [place], [address] Potassium [Moles/Vol] 4.4 mmol/L Normal 3.3-5.1 [facility] Comment on above: Order Comment: Comme nts: NPO at [place] prior to lipid panel Performed By: #### L 500.4100, L100.0500, L500.2500 #### [facility] [address] [place], [address] Sodium [Moles/Vol] 139 mmol/L Normal 133-145 [facility] Comment on above: Order Comment: Comme nts: NPO at [place] prior to lipid panel Performed By: #### L 500.4100, L100.0500, L500.2500 #### [facility] [address] [place], [address] Urea nitrogen [Mass/Vol] 28 mg/dL High 4-19 [facility] Comment on above: Order Comment: Comme nts: NPO at [place] prior to lipid panel Performed By: #### L 500.4100, L100.0500, L500.2500 #### [facility] Laboratory [address] [place], [address] CBC-Complete Blood Cnt No Di ffon 09-11-2024 Erythrocyte distribution width (RBC) [Ratio] 12.8 % Normal 11.6-14.6 [facility] Comment on above: Performed By: #### L 500.4100, L100.0500, L500.2500 #### [facility] Laboratory [address] [place], [address] Hematocrit (Bld) [Volume fraction] 39.7 % Normal 37-47 [facility] Comment on above: Performed By: #### L 500.4100, L100.0500, L500.2500 #### [facility] Laboratory [address] [place], [address] Hemoglobin (Bld) [Mass/Vol] 13.1 g/dL Normal 12.0-15.0 [facility] Comment on above: Performed By: #### L 500.4100, L100.0500, L500.2500 #### [facility] Laboratory [address] [place], [address] MCH (RBC) [Entitic mass] 30.3 pg Normal 27.0-32.0 [facility] Comment on above: Performed By: #### L 500.4100, L100.0500, L500.2500 #### [facility] Laboratory [address] [place], [address] MCHC (RBC) [Mass/Vol] 33.0 g/dL Normal 32-36 [facility] Comment on above: Performed By: #### L 500.4100, L100.0500, L500.2500 #### [facility] Laboratory [address] [place], [address] MCV (RBC) [Entitic vol] 91.7 fL Normal 81-99 [facility] Comment on above: Performed By: #### L 500.4100, L100.0500, L500.2500 #### [facility] Laboratory [address] [place], [address] Platelet mean volume (Bld) [Entitic vol] 10.7 fL Normal 6.2-12.0 [facility] Comment on above: Performed By: #### L 500.4100, L100.0500, L500.2500 #### [facility] Laboratory [address] [place], [address] Platelets (Bld) [#/Vol] 271 10*3/uL Normal 150-450 [facility] Comment on above: Performed By: #### L 500.4100, L100.0500, L500.2500 #### [facility] [address] [place], [address] RBC (Bld) [#/Vol] 4.33 10*6/uL Normal 4.2-5.4 [facility] Comment on above: Performed By: #### L 500.4100, L100.0500, L500.2500 #### [facility] Laboratory [address] [place], [address] RDW SD 42.8 fl Normal 35.1-43.9 [facility] Comment on above: Performed By: #### L 500.4100, L100.0500, L500.2500 #### [facility] Laboratory [address] [place], [address] WBC (Bld) [#/Vol] 12.2 10*3/uL High 4.4-11.0 [facility] Comment on above: Performed By: #### L 500.4100, L100.0500, L500.2500 #### [facility] Laboratory [address] [place], [address] Calculated very low density lipoprotein (VLDL) cholesterol measurementOrdered By: Matthew Oro on 09-11-2024 Calculated very low density lipoprotein (VLDL) cholesterol measurement 16 mg/dL 5-40 [facility] Carbon dioxide, total [Moles /volume] in Central venous bloodOrdered By: Matthew Oro on 09-11-2024 CO2 [Moles/Vol] 21.6 mmol/L 21.0-32.0 [facility] Chloride assayOrdered By: Urban Oro on 09-11-2024 Chloride [Moles/Vol] 105 mmol/L 98-108 [facility] Discharge Instructionon 08-29 Discharge Instruction [facility] Medical Records Department [address] [place] [address] Instructions for Home/Discharge Instructions 09/11/24 1214 MR#: [id number] Acct: [id number] Name: EZRA GONZALEZ Rep #: [id number] : 1935 89 From: Matthew Oro DO [...] Carpenter MD; Dr. Yogesh Hicks MD; Dr. Oilvia Trinidad MD; Dr. Lenin Tamez MD; Dr. [...] Ashu Leonard MD Signed Normal [facility] Electroencephalogramon 09-11 Electroencephalogram [facility] Services/Neurology [address] [place] [address] MR#: [id number] Acct: [id number] Name: EZRA GONZALEZ Rep #: [id number] : 1935 89 From: Castillo Jones MD Referring Dr: Status: ADM MARIELOS Location: [place] [id number] Date: 09/10/24 Sex: F C EEG Results [...] of mild diffuse encephalopathy. Nguyen Jones MD 09/11/241501 Date Castillo Jones MD CC: Dr. Matthew Oro DO; Dr. Castillo Jones MD; Dr. Kvng Ochoa DO Date Dictated: 09/11/241501 Date Transcribed: 09/11/241501 [employer]: [place] Signed Normal [facility] Erythrocyte distribution wid th ratioOrdered By: Matthew Oro on 09-11-2024 Erythrocyte distribution width (RBC) [Ratio] 12.8 % 11.6-14.6 [facility] Erythrocyte distribution wid th standard deviationOrdered By: Matthew Oro on 09-11-2024 Erythrocyte distribution width (RBC) [Ratio] 42.8 fl 35.1-43.9 [facility] Glomerular filtration rate ( GFR) estimation/1.73 sq m using serum, plasma, or whole bOrdered By: Matthew Oro on 09-11-2024 GFR/1.73 sq M.predicted among non-blacks MDRD (S/P/Bld) [Vol rate/Area] 61 mL/min/{1.73_m2} >60 [facility] Comment on above: mL/min/1.73m2 CKD-EP I Creatinine Equation (2020) Hematocrit Auto (Bld) [Volum e fraction]Ordered By: Matthew Oro on 09-11-2024 Hematocrit (Bld) [Volume fraction] 39.7 % 37-47 [facility] Hemoglobin measurementOrdere d By: Matthew Oro on 09-11-2024 Hemoglobin (Bld) [Mass/Vol] 13.1 g/dL 12.0-15.0 [facility] LDL calc ser/plasOrdered By: Matthew Oro on 09-11-2024 Cholesterol in LDL [Mass/Vol] 100 mg/dL [facility] Comment on above: Pvwycqfidz=383-924 m g/dL & Higher Sjzw=230 mg/dL or greater Lipid Profileon 09-11-2024 CHOL:HDL 3.03 Normal [facility] Comment on above: Order Comment: Comme nts: NPO at [place] prior to lipid panel Performed By: #### L 500.4100, L100.0500, L500.2500 #### [facility] [address] [place], [place], [id number] Cholesterol [Mass/Vol] 172 mg/dL Normal <=200 [facility] Comment on above: Order Comment: Comme nts: NPO at [place] prior to lipid panel Result Comment: Chol esterol level, Desirable <200 mg/dL Borderline high cholesterol 200-239 mg/dL High cholesterol >=240 mg/dL Recommendations of the NCEP Adult Treatment Panel for the following risk-cutoff thresholds for the [place] population. Performed By: #### L 500.4100, L100.0500, L500.2500 #### [facility] [address] [place], [address] Cholesterol in HDL [Mass/Vol] 57 mg/dL Normal [facility] Comment on above: Order Comment: Comme nts: [...] L 500.4100, L100.0500, L500.2500 #### [facility] [address] [place], [address] Cholesterol in LDL [Mass/Vol] 100 mg/dL Normal [facility] Comment on above: Order Comment: Comme nts: NPO at [place] prior to lipid panel Result Comment: Bord eeqpwa=787-556 mg/dL Higher Qywd=309 mg/dL or greater Performed By: #### L 500.4100, L100.0500, L500.2500 #### [facility] Laboratory [address] [place], [address] Cholesterol in VLDL [Mass/Vol] 16 mg/dL Normal 5-40 [facility] Comment on above: Order Comment: Comme nts: NPO at [place] prior to lipid panel Performed By: #### L 500.4100, L100.0500, L500.2500 #### [facility] Laboratory [address] [place], [address] Triglyceride [Mass/Vol] 78 mg/dL Normal [facility] Comment on above: Order Comment: Comme nts: NPO at [place] prior to lipid panel Result Comment: The drugs N-Acetylcysteine and Metamizole may falsely depress this assay. Normal range: <150 mg/dL Borderline High: 150-199 mg/dL High: 200-499 mg/dL Very High: >500 mg/dL Performed By: #### L 500.4100, L100.0500, L500.2500 #### [facility] Laboratory [address] [place], [address] MCV (mean corpuscular volume ) determinationOrdered By: Matthew Oro on 09-11-2024 MCV (RBC) [Entitic vol] 91.7 fL 81-99 [facility] Mean corpuscular hemoglobin (MCH) determinationOrdered By: Matthew Oro on 09-11-2024 MCH (RBC) [Entitic mass] 30.3 pg 27.0-32.0 [facility] Mean corpuscular hemoglobin concentration (MCHC) determinationOrdered By: Matthew Oro on 09-11-2024 MCHC (RBC) [Mass/Vol] 33.0 g/dL 32-36 [facility] Mean platelet volume determi nationOrdered By: Matthew Oro on 09-11-2024 Platelet mean volume (Bld) [Entitic vol] 10.7 fL 6.2-12.0 [facility] Platelet countOrdered By: Urban Oro on 09-11-2024 Platelets (Bld) [#/Vol] 271 10*3/uL 150-450 [facility] Potassium measurement (mass/ volume)Ordered By: Matthew Oro on 09-11-2024 Potassium (Unsp spec) [Mass/Vol] 4.4 mmol/L 3.3-5.1 [facility] RBC Auto (Bld) [#/Vol]Ordere d By: Matthew Oro on 09-11-2024 RBC (Bld) [#/Vol] 4.33 10*6/uL 4.2-5.4 [facility] Screening total cholesterol/ high density lipoprotein (HDL) cholesterol ratioOrdered By: Matthew Oro on 09-11-2024 Cholesterol.total/Cholest felipe in HDL [Mass ratio] 3.03 {ratio} [facility] Serum creatinine measurement (mass/volume)Ordered By: Matthew Oro on 09-11-2024 Creatinine [Mass/Vol] 0.91 mg/dL 0.70-1.20 [facility] Serum glucose measurement (m ass/volume)Ordered By: Matthew Oro on 09-11-2024 Glucose [Mass/Vol] 118 mg/dL High 70-99 [facility] Serum or plasma calcium viktoria urement (mass/volume)Ordered By: Matthew Oro on 09-11-2024 Calcium [Mass/Vol] 8.8 mg/dL 7.6-11.0 [facility] Serum or plasma cholesterol in HDL measurement (mass/volume)Ordered By: Matthew Oro on 09-11-2024 Cholesterol in HDL [Mass/Vol] 57 mg/dL >40 [facility] Comment on above: National Cholesterol Education Program (NCEP) guidelines:<40 mg/dL: Low HDL-cholesterol (major risk factor for CHD)>= 60 mg/dL: High HDL-cholesterol (negative risk factor for CHD)HDL-cholesterol is affected by a number of factors, e.g. smoking, exercise, hormones, sex and age. Serum or plasma cholesterol measurement (mass/volume)Ordered By: Matthew Oro on 09-11-2024 Cholesterol [Mass/Vol] 172 mg/dL <201 [facility] Comment on above: Cholesterol level, D esirable <200 mg/dLBorderline high cholesterol 200-239 mg/dLHigh cholesterol >=240 mg/dLRecommendations of the NCEP Adult Treatment Panel for the following risk-cutoff thresholds for the [place] population. Serum or plasma urea nitroge n measurement (mass/volume)Ordered By: Matthew Oro on 09-11-2024 Urea nitrogen [Mass/Vol] 28 mg/dL High 4-19 [facility] Sodium levelOrdered By: All Oro on 09-11-2024 Sodium [Moles/Vol] 139 mmol/L 133-145 [facility] Triglycerides measurementOrd ered By: Matthew Oro on 09-11-2024 Triglyceride [Mass/Vol] 78 mg/dL <199 [facility] Comment on above: The drugs N-Acetylcy steine and Metamizole may falsely depress this assay. Normal range: <150 mg/dLBorderline High: 150-199 mg/dLHigh: 200-499 mg/dLVery High: >500 mg/dL White blood cell (WBC) count Ordered By: Matthew Oro on 09-11-2024 WBC (Bld) [#/Vol] 12.2 10*3/uL High 4.4-11.0 [facility] Absolute lymphocyte countOrd ered By: Teri Garcia on 09-10-2024 Lymphocytes Auto (Unsp spec) [#/Vol] 1.91 10*3/uL 0.83-4.51 [facility] Absolute neutrophil countOrd ered By: Teri Garcia on 09-10-2024 Neutrophils (Bld) [#/Vol] 8.3 10*3/uL High 2.0-7.7 [facility] Activated partial thrombopla stin time (aPTT) in platelet poor plasma by coagulation aOrdered By: Teri Garcia on 09-10-2024 aPTT Coag (PPP) [Time] 31.8 s 24.1-36.2 [facility] Anion gap in Serum or Plasma Ordered By: Teri Garcia on 09-10-2024 Anion gap [Moles/Vol] 12 mmol/L 5-15 [facility] Automated lymphocyte count a s percentage of total leukocytesOrdered By: Teri Garcia on 09-10-2024 Lymphocytes/100 WBC Auto (Unsp spec) 16.6 % Low 19-41 [facility] BUN/creatinine ratioOrdered By: Teri Garcia on 09-10-2024 Urea nitrogen/Creatinine [Mass ratio] 34.8 mg/mg High 10-20 [facility] Basic Metabolic Profile (BMP )on 09-10-2024 BUN/CRE 34.8 RATIO High - [facility] Comment on above: Performed By: #### L 500.2500, L100.0100, L501.4021, L300.3900, L300.4310 ####[facility] [address] [place], [address] Calcium [Mass/Vol] 8.7 mg/dL Normal 7.6-11.0 [facility] Comment on above: Performed By: #### L 500.2500, L100.0100, L501.4021, L300.3900, L300.4310 ####[facility] [address] [place], [address] Chloride [Moles/Vol] 103 mmol/L Normal 98-108 [facility] Comment on above: Performed By: #### L 500.2500, L100.0100, L501.4021, L300.3900, L300.4310 ####[facility] [address] [place], [address] CO2 [Moles/Vol] 21.8 mmol/L Normal 21.0-32.0 [facility] Comment on above: Performed By: #### L 500.2500, L100.0100, L501.4021, L300.3900, L300.4310 ####[facility] [address] [place], [address] Creatinine [Mass/Vol] 1.05 mg/dL Normal 0.70-1.20 [facility] Comment on above: Performed By: #### L 500.2500, L100.0100, L501.4021, L300.3900, L300.4310 ####[facility] [address] [place], [address] ECRCL 33.63 ml/min Low 50-250 [facility] Comment on above: Performed By: #### L 500.2500, L100.0100, L501.4021, L300.3900, L300.4310 ####[facility] - [place] [address] [place], [address] GAP 12 Normal 5-15 [facility] Comment on above: Performed By: #### L 500.2500, L100.0100, L501.4021, L300.3900, L300.4310 ####[facility] [address] [place], [address] GFR/1.73 sq M.predicted among non-blacks MDRD (S/P/Bld) [Vol rate/Area] 51 mL/min/{1.73_m2} Low >60 [facility] Comment on above: Result Comment: mL/m in/1.73m2 CKD-EPI Creatinine Equation (2020) Performed By: #### L 500.2500, L100.0100, L501.4021, L300.3900, L300.4310 ####[facility] [address] [place], [address] Glucose [Mass/Vol] 131 mg/dL High 70-99 [facility] Comment on above: Performed By: #### L 500.2500, L100.0100, L501.4021, L300.3900, L300.4310 ####[facility] [address] [place], [address] Potassium [Moles/Vol] 4.4 mmol/L Normal 3.3-5.1 [facility] Comment on above: Result Comment: Hemo lysis present, Results??could be affected. ?? Performed By: #### L 500.2500, L100.0100, L501.4021, L300.3900, L300.4310 ####[facility] [address] [place], [address] Sodium [Moles/Vol] 137 mmol/L Normal 133-145 [facility] Comment on above: Performed By: #### L 500.2500, L100.0100, L501.4021, L300.3900, L300.4310 ####[facility] [address] [place], [address] Urea nitrogen [Mass/Vol] 37 mg/dL High 4-19 [facility] Comment on above: Performed By: #### L 500.2500, L100.0100, L501.4021, L300.3900, L300.4310 ####[facility] [address] [place], [address] Basophil percentageOrdered B y: Teri Garcia on 09-10-2024 Basophils/100 WBC (Bld) 0.4 % 0-1 [facility] Bilirubin Test strip Ql (U)O rdered By: Teri Garcia on 09-10-2024 Bilirubin Ql (U) Negative Negative [facility] Brain without Contraston Brain without Contrast [facility] Imaging Services [address] [place] [address] Brain without Contrast MR#: [id number] Acct: [id number] Name: EZRA GONZALEZ Rep #: [id number] : 1935 F 89 From: Matthias Márquez MD PCP: Dr. Kvng Ochoa, DO Status: ADM MARIELOS Study: Brain without Contrast Date of Exam: 09/10/24 Exam# [id number] Ordering Dr: Matthew Oro DO PROCEDURE: BRAIN [...] Atrophy and mild microvascular changes Reading [facility] CC: Dr. Matthew Oro DO; Dr. Kvng Ochoa DO [employer]: Signed Normal [facility] CBC W/Diff, Automatedon 08-29 Absolute Lymph 1.91 X10 3/uL Normal 0.83-4.51 [facility] Comment on above: Performed By: #### L 500.2500, L100.0100, L501.4021, L300.3900, L300.4310 ####[facility] [address] [place], [address] Absolute Neut 8.3 X10 3/uL High 2.0-7.7 [facility] Comment on above: Performed By: #### L 500.2500, L100.0100, L501.4021, L300.3900, L300.4310 ####[facility] [address] [place], [address] Basophils/100 WBC (Bld) 0.4 % Normal 0-1 [facility] Comment on above: Performed By: #### L 500.2500, L100.0100, L501.4021, L300.3900, L300.4310 ####[facility] [address] [place], [address] Eosinophils/100 WBC (Bld) 1.2 % Normal 0-5 [facility] Comment on above: Performed By: #### L 500.2500, L100.0100, L501.4021, L300.3900, L300.4310 ####[facility] [address] [place], [address] Erythrocyte distribution width (RBC) [Ratio] 13.2 % Normal 11.6-14.6 [facility] Comment on above: Performed By: #### L 500.2500, L100.0100, L501.4021, L300.3900, L300.4310 ####[facility] [address] [place], [address] Hematocrit (Bld) [Volume fraction] 41.7 % Normal 37-47 [facility] Comment on above: Performed By: #### L 500.2500, L100.0100, L501.4021, L300.3900, L300.4310 ####[facility] [address] [place], [address] Hemoglobin (Bld) [Mass/Vol] 13.6 g/dL Normal 12.0-15.0 [facility] Comment on above: Performed By: #### L 500.2500, L100.0100, L501.4021, L300.3900, L300.4310 ####[facility] [address] [place], [address] IG% 0.400 Normal 0.0-0.9 [facility] Comment on above: Result Comment: IG% - Immature Granulocytes (promyelocytes, myelocytes and metamyelocytes) > 1% indicates that a LEFT SHIFT is Present. Performed By: #### L 500.2500, L100.0100, L501.4021, L300.3900, L300.4310 ####[facility] [address] [place], [address] Lymphocytes/100 WBC (Bld) 16.6 % Low 19-41 [facility] Comment on above: Performed By: #### L 500.2500, L100.0100, L501.4021, L300.3900, L300.4310 ####[facility] [address] [place], [address] MCH (RBC) [Entitic mass] 30.6 pg Normal 27.0-32.0 [facility] Comment on above: Performed By: #### L 500.2500, L100.0100, L501.4021, L300.3900, L300.4310 ####[facility] [address] [place], [address] MCHC (RBC) [Mass/Vol] 32.6 g/dL Normal 32-36 [facility] Comment on above: Performed By: #### L 500.2500, L100.0100, L501.4021, L300.3900, L300.4310 ####[facility] [address] [place], [address] MCV (RBC) [Entitic vol] 93.9 fL Normal 81-99 [facility] Comment on above: Performed By: #### L 500.2500, L100.0100, L501.4021, L300.3900, L300.4310 ####[facility] [address] [place], [address] Monocytes/100 WBC (Bld) 9.1 % Normal 0-10 [facility] Comment on above: Performed By: #### L 500.2500, L100.0100, L501.4021, L300.3900, L300.4310 ####[facility] [address] [place], [address] Neutrophils/100 WBC (Bld) 72.3 % High 47-70 [facility] Comment on above: Performed By: #### L 500.2500, L100.0100, L501.4021, L300.3900, L300.4310 ####[facility] [address] [place], [address] Nucleated RBC (Bld) [#/Vol] 0 10*3/uL Normal 0-5 [facility] Comment on above: Performed By: #### L 500.2500, L100.0100, L501.4021, L300.3900, L300.4310 ####[facility] [address] [place], [address] Platelet mean volume (Bld) [Entitic vol] 10.4 fL Normal 6.2-12.0 [facility] Comment on above: Performed By: #### L 500.2500, L100.0100, L501.4021, L300.3900, L300.4310 ####[facility] [address] [place], [address] Platelets (Bld) [#/Vol] 269 10*3/uL Normal 150-450 [facility] Comment on above: Performed By: #### L 500.2500, L100.0100, L501.4021, L300.3900, L300.4310 ####[facility] [address] [place], [address] RBC (Bld) [#/Vol] 4.44 10*6/uL Normal 4.2-5.4 [facility] Comment on above: Performed By: #### L 500.2500, L100.0100, L501.4021, L300.3900, L300.4310 ####[facility] [address] [place], [address] RDW SD 45.4 fl High 35.1-43.9 [facility] Comment on above: Performed By: #### L 500.2500, L100.0100, L501.4021, L300.3900, L300.4310 ####[facility] [address] [place], [address] WBC (Bld) [#/Vol] 11.5 10*3/uL High 4.4-11.0 [facility] Comment on above: Performed By: #### L 500.2500, L100.0100, L501.4021, L300.3900, L300.4310 ####[facility] [address] [place], [address] Carbon dioxide, total [Moles /volume] in Central venous bloodOrdered By: Teri Garcia on 09-10-2024 CO2 [Moles/Vol] 21.8 mmol/L 21.0-32.0 [facility] Chloride assayOrdered By: Antonio Garcia on 09-10-2024 Chloride [Moles/Vol] 103 mmol/L 98-108 [facility] Emergency Department Summary on 09-10-2024 Emergency Department Summary [facility] Medical Records Department [address] [place] [address] Emergency Department Summary 09/10/24 MR#: [id number] Acct: [id number] Name: EZRA GONZALEZ Rep #: [id number] : 1935 89 From: Teri Garcia DO [...] son Wilfredo (her eldest son) phone number [phone]. He states that she follows with Dr. Juarez (neurology) and he suspects that this could be epileptic episodes. He also tells me that he talk to her about 615 this morning and she seemed a little off with her mentation as well as her pronunciation. [facility] Medical History Closed fracture [...] (more content not included)... Normal [facility] Eosinophil percentageOrdered By: Teri Garcia on 09-10-2024 Eosinophils/100 WBC (Bld) 1.2 % 0-5 [facility] Erythrocyte distribution wid th ratioOrdered By: Teri Garcia on 09-10-2024 Erythrocyte distribution width (RBC) [Ratio] 13.2 % 11.6-14.6 [facility] Erythrocyte distribution wid th standard deviationOrdered By: Teri Garcia on 09-10-2024 Erythrocyte distribution width (RBC) [Ratio] 45.4 fl High 35.1-43.9 [facility] Glomerular filtration rate ( GFR) estimation/1.73 sq m using serum, plasma, or whole bOrdered By: Teri Garcia on 09-10-2024 GFR/1.73 sq M.predicted among non-blacks MDRD (S/P/Bld) [Vol rate/Area] 51 mL/min/{1.73_m2} Low >60 [facility] Comment on above: mL/min/1.73m2 CKD-EP I Creatinine Equation (2020) H AND P Exam - Hospitaliston 09-10-2024 H&P Exam - Hospitalist [facility] Medical Records Department [address] [place] [address] H P Exam - Hospitalist 09/10/24 1603 MR#: [id number] Acct: [id number] Name: EZRA GONZALEZ Rep #: [id number] : 1935 89 From: Matthew Oro DO PCP: Dr. Kvng Ochoa, Status:ADM MARIELOS Location: [place] [address] HPI - General General Date of Admission: 09/10/24 Date of Service: 09/10/24 Chief Complaint: Dysarthria HPI Narrative EZRA GONZALEZ, is a 89 F who presented to [facility] ED on 09/10/2024 with dysarthria. Patient lives at assisted living at [place]. Has history of seizures and is on [...] any other acute concerns at this time. [facility] Medical History Closed fracture of right distal [...] (more content not included)... Normal [facility] Hematocrit Auto (Bld) [Volum e fraction]Ordered By: Teri Garcia on 09-10-2024 Hematocrit (Bld) [Volume fraction] 41.7 % 37-47 [facility] Hemoglobin measurementOrdere d By: Teri Garcia on 09-10-2024 Hemoglobin (Bld) [Mass/Vol] 13.6 g/dL 12.0-15.0 [facility] Immature granulocytes/100 WB C Auto (Bld)Ordered By: Teri Garcia on 09-10-2024 Immature granulocytes/100 WBC (Bld) 0.400 % 0.0-0.9 [facility] Comment on above: IG% - Immature Granu locytes (promyelocytes, myelocytes and metamyelocytes) > 1% indicates that a LEFT SHIFT is Present. International normalized rat io (INR) calculationOrdered By: Teri Garcia on 09-10-2024 INR Coag (Bld) [Relative time] 2.4 {INR} [facility] Ketones Test strip Ql (U)Ord ered By: Teri Garcia on 09-10-2024 Ketones Ql (U) Negative Negative [facility] L499.0042on 09-10-2024 Trop T High Sen 17 ng/L High <=14 [facility] Comment on above: Performed By: #### L 499.0042 #### [facility] Laboratory [address] [place], [address] L499.0043on 09-10-2024 Trop T High Sen 15 ng/L High <=14 [facility] Comment on above: Performed By: #### L 499.0043 #### [facility] Laboratory [address] [place], [address] L501.4021on 09-10-2024 Trop T High Sen 18 ng/L High <=14 [facility] Comment on above: Performed By: #### L 500.2500, L100.0100, L501.4021, L300.3900, L300.4310 ####[facility] [address] [place], [address] MCV (mean corpuscular volume ) determinationOrdered By: Teri Garcia on 09-10-2024 MCV (RBC) [Entitic vol] 93.9 fL 81-99 [facility] Magnetic resonance imaging r eportOrdered By: Matthias Márquez on 09-10-2024 Study report [facility] Imaging Services [address] [place] [address] Brain without Contrast MR#: [id number] Acct: [id number] Name: EZRA GONZALEZ Rep #: [id number] : 1935 F 89 From: Bill Márquez MD PCP: Dr. Kvng Ochoa, DO Status: ADM MARIELOS Study:Brain without Contrast Date of Exam: 09/10/24 Exam# [id number] Ordering Dr: Matthew Patel DO PROCEDURE: BRAIN [...] Atrophy and mild microvascular changes Reading Location: [facility] CC: Dr. Matthew Oro, ; Dr. Kvng Ochoa DO ~ [employer]: Signed [facility] Mean corpuscular hemoglobin (MCH) determinationOrdered By: Teri Garcia on 09-10-2024 MCH (RBC) [Entitic mass] 30.6 pg 27.0-32.0 [facility] Mean corpuscular hemoglobin concentration (MCHC) determinationOrdered By: Teri Garcia on 09-10-2024 MCHC (RBC) [Mass/Vol] 32.6 g/dL 32-36 [facility] Mean platelet volume determi nationOrdered By: Teri Garcia on 09-10-2024 Platelet mean volume (Bld) [Entitic vol] 10.4 fL 6.2-12.0 [facility] Microscopic analysis of urin e for red blood cells (RBC)Ordered By: Teri Garcia on 09-10-2024 Microscopic analysis of urine for red blood cells (RBC) 0 SEEN /hpf 0-5 [facility] Monocyte percentageOrdered B y: Teri Garcia on 09-10-2024 Monocytes/100 WBC (Bld) 9.1 % 0-10 [facility] Mucus LM Ql (Urine sed)Order ed By: Teri Garcia on 09-10-2024 Mucus Ql (Urine sed) 0 SEEN /hpf [facility] Neutrophil percentageOrdered By: Teri Garcia on 09-10-2024 Neutrophils/100 WBC (Bld) 72.3 % High 47-70 [facility] Nitrite Test strip Ql (U)Ord ered By: Teri Garcia on 09-10-2024 Nitrite Ql (U) Negative Negative [facility] Nucleated red blood cell per centageOrdered By: Teri Garcia on 09-10-2024 Nucleated RBC/100 WBC (Bld) [Ratio] 0 % 0-5 [facility] Partial Thromboplast Timeon 09-10-2024 aPTT Coag (Bld) [Time] 31.8 s Normal 24.1-36.2 [facility] Comment on above: Performed By: #### L 500.2500, L100.0100, L501.4021, L300.3900, L300.4310 ####[facility] [address] [place], [place], [id number] Platelet countOrdered By: Antonio Garcia on 09-10-2024 Platelets (Bld) [#/Vol] 269 10*3/uL 150-450 [facility] Potassium measurement (mass/ volume)Ordered By: Teri Garcia on 09-10-2024 Potassium (Unsp spec) [Mass/Vol] 4.4 mmol/L 3.3-5.1 [facility] Comment on above: Hemolysis present, R esults could be affected. Protein Test strip Ql (U)Ord ered By: Teri Garcia on 09-10-2024 Protein Ql (U) 30 mg/dl High Negative [facility] Prothrombin Time w/INRon INR Coag (PPP) [Relative time] 2.4 {INR} Normal [facility] Comment on above: Performed By: #### L 500.2500, L100.0100, L501.4021, L300.3900, L300.4310 ####[facility] [address] [place], [place], [id number] PT Coag (PPP) [Time] 26.4 s High 11.7-14.9 [facility] Comment on above: Performed By: #### L 500.2500, L100.0100, L501.4021, L300.3900, L300.4310 ####[facility] [address] [place], [address] Prothrombin timeOrdered By: Teri Garcia on 09-10-2024 PT Coag (PPP) [Time] 26.4 s High 11.7-14.9 [facility] RBC Auto (Bld) [#/Vol]Ordere d By: Teri Garcia on 09-10-2024 RBC (Bld) [#/Vol] 4.44 10*6/uL 4.2-5.4 [facility] STROKE Brain/Head without Co nton 09-10-2024 STROKE Brain/Head without Cont [facility] Imaging Services [address] [place] [address] STROKE Brain/Head without Cont MR#: [id number] Acct: [id number] Name: EZRA GONZALEZ Rep #: [id number] : 1935 F 89 From: Mio nayak MD PCP: Dr. Kvng Ochoa, DO Status: REG ER Study: STROKE Brain/Head without Cont Date of Exam: 0 09/10/24 Exam# [id number] Ordering Dr: Teri Garcia DO PROCEDURE: STROKE [...] 2:05 pm with readback verification. Reading Location: [facility] CC: Dr. Teri Garcia DO; Dr. Kvng Ochoa DO [employer]: Signed Normal [facility] STROKE CTA Head AND Neck W/C onon 09-10-2024 STROKE CTA Head AND Neck W/Con [facility] Imaging Services [address] [place] [address] STROKE CTA Head AND Neck W/Con MR#: [id number] Acct: [id number] Name: EZRA GONZALEZ Rep #: [id number] : 1935 F 89 From: Mio nayak MD PCP: Dr. Kvng Ochoa DO Status: REG ER Study: STROKE CTA Head AND Neck W/Con Date of Exam: 0 09/10/24 Exam# [id number] Ordering Dr: Teri Garcia DO PROCEDURE: STROKE [...] RIGHT Vertebral: Unremarkable. LEFT Vertebral: Unremarkable. Anatomy: [place] of Monique anatomy is normal. Aneurysm or [...] 3:01 pm with readback verification. Reading Location: [id number] CC: Dr. Teri Garcia DO; Dr. Kvng Ochoa DO [employer]: Signed Normal [facility] Serum creatinine measurement (mass/volume)Ordered By: Teri Garcia on 09-10-2024 Creatinine [Mass/Vol] 1.05 mg/dL 0.70-1.20 [facility] Serum glucose measurement (m ass/volume)Ordered By: Teri Garcia on 09-10-2024 Glucose [Mass/Vol] 131 mg/dL High 70-99 [facility] Serum or plasma calcium viktoria urement (mass/volume)Ordered By: Teri Garcia on 09-10-2024 Calcium [Mass/Vol] 8.7 mg/dL 7.6-11.0 [facility] Serum or plasma urea nitroge n measurement (mass/volume)Ordered By: Teri Garcia on 09-10-2024 Urea nitrogen [Mass/Vol] 37 mg/dL High 4-19 [facility] Sodium levelOrdered By: Ollie Garcia on 09-10-2024 Sodium [Moles/Vol] 137 mmol/L 133-145 [facility] Squamous epithelial cells de tection in urine sediment by light microscopyOrdered By: Teri Garcia on 09-10-2024 Epithelial cells.squamous LM Ql (Urine sed) 0-5 SEEN /hpf 5-10 [facility] Troponin T.cardiac [Mass/vol ume] in Serum or Plasma by High sensitivity methodOrdered By: Teri Garcia on 09-10-2024 Troponin T.cardiac High sensitivity method [Mass/Vol] 15 ng/L High <14 [facility] Troponin T.cardiac High sensitivity method [Mass/Vol] 17 ng/L High <14 [facility] Troponin T.cardiac High sensitivity method [Mass/Vol] 18 ng/L High <14 [facility] Urinalysis, Completeon 09-10 BACTERIA RARE Normal None Seen [facility] Comment on above: Order Comment: RANDY CTOR TO SPECIFY Performed By: #### L 400.0001 ####[facility] [address] [place], [address] EPI,SQUAMOUS 0-5 SEEN Normal 5-10 [facility] Comment on above: Order Comment: RANDY CTOR TO SPECIFY Performed By: #### L 400.0001 ####[facility] [address] [place], [address] WBC 10-25 SEEN Normal 0-5 [facility] Comment on above: Order Comment: RANDY CTOR TO SPECIFY Performed By: #### L 400.0001 ####[facility] [address] [place], [address] Mucus Ql (Urine sed) 0 SEEN Normal [facility] Comment on above: Order Comment: RANDY CTOR TO SPECIFY Performed By: #### L 400.0001 ####[facility] [address] [place], [address] RBC 0 SEEN Normal 0-5 [facility] Comment on above: Order Comment: RANDY CTOR TO SPECIFY Performed By: #### L 400.0001 ####[facility] [address] [place], [address] Urine clarityOrdered By: Lashaun Garcia on 09-10-2024 Clarity (U) Clear Clear [facility] Urine color determinationOrd ered By: Teri Garcia on 09-10-2024 Color (U) Straw Yellow [facility] Urine cultureOrdered By: Lashaun Garcia on 09-10-2024 Bacteria identified Cx Nom (U) Klebsiella pneumoniae sp pneum Abnormal [facility] Urine glucose detectionOrder ed By: Teri Garcia on 09-10-2024 Glucose Ql (U) Normal mg/dl Normal [facility] Urine leukocyte esterase det ection by dipstickOrdered By: Teri Garcia on 09-10-2024 Leukocyte esterase Test strip Ql (U) 500 /ul High Negative [facility] Urine pHOrdered By: Teri romero on 09-10-2024 pH (U) 5.0 [pH] 5.0 - 8.0 [facility] Urine sediment bacteria coun t by microscopy (number/high power field)Ordered By: Teri Garcia on 09-10-2024 Bacteria LM.HPF (Urine sed) [#/Area] RARE /hpf None Seen [facility] Urine specific gravity measu rementOrdered By: Teri Garcia on 09-10-2024 Specific gravity (U) [Rel density] 1.010 1.002-1.030 [facility] Urine urobilinogen measureme ntOrdered By: Teri Garcia on 09-10-2024 Urobilinogen Ql (U) Normal mg/dl Normal [facility] White blood cell (WBC) count Ordered By: Teri Garcia on 09-10-2024 WBC (Bld) [#/Vol] 11.5 10*3/uL High 4.4-11.0 [facility] White blood cell countOrdere d By: Teri Garcia on 09-10-2024 White blood cell count 10-25 SEEN /hpf 0-5 [facility] Absolute lymphocyte countOrd ered By: Anoop Blackmon on 09-08-2024 Lymphocytes Auto (Unsp spec) [#/Vol] 2.21 10*3/uL 0.83-4.51 [facility] [place] Absolute neutrophil countOrd ered By: Anoop Blackmon on 09-08-2024 Neutrophils (Bld) [#/Vol] 10.3 10*3/uL High 2.0-7.7 [facility] Anion gap in Serum or Plasma Ordered By: Anooppierce Blackmon on 09-08-2024 Anion gap [Moles/Vol] 11 mmol/L 5-15 [facility] Automated lymphocyte count a s percentage of total leukocytesOrdered By: Anoop Blackmon on 09-08-2024 Lymphocytes/100 WBC Auto (Unsp spec) 16.2 % Low 19-41 [facility] BUN/creatinine ratioOrdered By: Anooppierce Blackmon on 09-08-2024 Urea nitrogen/Creatinine [Mass ratio] 35.2 mg/mg High 10-20 [facility] Basic Metabolic Profile (BMP )on 09-08-2024 BUN/CRE 35.2 RATIO High 10- [facility] Comment on above: Performed By: #### L 100.0100, L500.2500, L300.3900, L3300.4400 ####[facility] [address] [place], [address] Calcium [Mass/Vol] 8.9 mg/dL Normal 7.6-11.0 [facility] Comment on above: Performed By: #### L 100.0100, L500.2500, L300.3900, L3300.4400 ####[facility] [address] [place], [address] Chloride [Moles/Vol] 105 mmol/L Normal 98-108 [facility] Comment on above: Performed By: #### L 100.0100, L500.2500, L300.3900, L3300.4400 ####[facility] [address] [place], [address] CO2 [Moles/Vol] 22.4 mmol/L Normal 21.0-32.0 [facility] Comment on above: Performed By: #### L 100.0100, L500.2500, L300.3900, L3300.4400 ####[facility] [address] [place], [address] Creatinine [Mass/Vol] 1.00 mg/dL Normal 0.70-1.20 [facility] Comment on above: Performed By: #### L 100.0100, L500.2500, L300.3900, L3300.4400 ####[facility] [address] [place], [address] ECRCL 39.57 ml/min Low 50-250 [facility] Comment on above: Performed By: #### L 100.0100, L500.2500, L300.3900, L3300.4400 ####[facility] [address] [place], [address] GAP 11 Normal 5-15 [facility] Comment on above: Performed By: #### L 100.0100, L500.2500, L300.3900, L3300.4400 ####[facility] [address] [place], [address] GFR/1.73 sq M.predicted among non-blacks MDRD (S/P/Bld) [Vol rate/Area] 54 mL/min/{1.73_m2} Low >60 [facility] Comment on above: Result Comment: mL/m in/1.73m2 CKD-EPI Creatinine Equation (2020) Performed By: #### L 100.0100, L500.2500, L300.3900, L3300.4400 ####[facility] [address] [place], [address] Glucose [Mass/Vol] 149 mg/dL High 70-99 [facility] Comment on above: Performed By: #### L 100.0100, L500.2500, L300.3900, L3300.4400 ####[facility] [address] [place], [address] Potassium [Moles/Vol] 4.7 mmol/L Normal 3.3-5.1 [facility] Comment on above: Performed By: #### L 100.0100, L500.2500, L300.3900, L3300.4400 ####[facility] [address] [place], [address] Sodium [Moles/Vol] 138 mmol/L Normal 133-145 [facility] Comment on above: Performed By: #### L 100.0100, L500.2500, L300.3900, L3300.4400 ####[facility] [address] [place], [address] Urea nitrogen [Mass/Vol] 35 mg/dL High 4-19 [facility] Comment on above: Performed By: #### L 100.0100, L500.2500, L300.3900, L3300.4400 ####[facility] [address] [place], [address] Basophil percentageOrdered B y: Anoop Blackmon on 09-08-2024 Basophils/100 WBC (Bld) 0.2 % 0-1 [facility] CBC W/Diff, Automatedon 08-29 Absolute Lymph 2.21 X10 3/uL Normal 0.83-4.51 [facility] Comment on above: Performed By: #### L 100.0100, L500.2500, L300.3900, L3300.4400 #### [facility] Laboratory [address] [place], [address] Absolute Neut 10.3 X10 3/uL High 2.0-7.7 [facility] Comment on above: Performed By: #### L 100.0100, L500.2500, L300.3900, L3300.4400 #### [facility] [address] [place], [address] Basophils/100 WBC (Bld) 0.2 % Normal 0-1 [facility] Comment on above: Performed By: #### L 100.0100, L500.2500, L300.3900, L3300.4400 #### [facility] [address] [place], [address] Eosinophils/100 WBC (Bld) 0.7 % Normal 0-5 [facility] Comment on above: Performed By: #### L 100.0100, L500.2500, L300.3900, L3300.4400 #### [facility] [address] [place], [address] Erythrocyte distribution width (RBC) [Ratio] 13.2 % Normal 11.6-14.6 [facility] Comment on above: Performed By: #### L 100.0100, L500.2500, L300.3900, L3300.4400 #### [facility] [address] [place], [address] Hematocrit (Bld) [Volume fraction] 41.4 % Normal 37-47 [facility] Comment on above: Performed By: #### L 100.0100, L500.2500, L300.3900, L3300.4400 #### [facility] [address] [place], [address] Hemoglobin (Bld) [Mass/Vol] 13.8 g/dL Normal 12.0-15.0 [facility] Comment on above: Performed By: #### L 100.0100, L500.2500, L300.3900, L3300.4400 #### [facility] [address] [place], [address] IG% 0.400 Normal 0.0-0.9 [facility] Comment on above: Result Comment: IG% - Immature Granulocytes (promyelocytes, myelocytes and metamyelocytes) > 1% indicates that a LEFT SHIFT is Present. Performed By: #### L 100.0100, L500.2500, L300.3900, L3300.4400 #### [facility] [address] [place], [address] Lymphocytes/100 WBC (Bld) 16.2 % Low 19-41 [facility] Comment on above: Performed By: #### L 100.0100, L500.2500, L300.3900, L3300.4400 #### [facility] [address] [place], [address] MCH (RBC) [Entitic mass] 31.4 pg Normal 27.0-32.0 [facility] Comment on above: Performed By: #### L 100.0100, L500.2500, L300.3900, L3300.4400 #### [facility] [address] [place], [address] MCHC (RBC) [Mass/Vol] 33.3 g/dL Normal 32-36 [facility] Comment on above: Performed By: #### L 100.0100, L500.2500, L300.3900, L3300.4400 #### [facility] [address] [place], [address] MCV (RBC) [Entitic vol] 94.1 fL Normal 81-99 [facility] Comment on above: Performed By: #### L 100.0100, L500.2500, L300.3900, L3300.4400 #### [facility] [address] [place], [address] Monocytes/100 WBC (Bld) 6.6 % Normal 0-10 [facility] Comment on above: Performed By: #### L 100.0100, L500.2500, L300.3900, L3300.4400 #### [facility] [address] [place], [address] Neutrophils/100 WBC (Bld) 75.9 % High 47-70 [facility] Comment on above: Performed By: #### L 100.0100, L500.2500, L300.3900, L3300.4400 #### [facility] [address] [place], [address] Nucleated RBC (Bld) [#/Vol] 0 10*3/uL Normal 0-5 [facility] Comment on above: Performed By: #### L 100.0100, L500.2500, L300.3900, L3300.4400 #### [facility] [address] [place], [address] Platelet mean volume (Bld) [Entitic vol] 10.8 fL Normal 6.2-12.0 [facility] Comment on above: Performed By: #### L 100.0100, L500.2500, L300.3900, L3300.4400 #### [facility] [address] [place], [address] Platelets (Bld) [#/Vol] 326 10*3/uL Normal 150-450 [facility] Comment on above: Performed By: #### L 100.0100, L500.2500, L300.3900, L3300.4400 #### [facility] [address] [place], [address] RBC (Bld) [#/Vol] 4.40 10*6/uL Normal 4.2-5.4 [facility] Comment on above: Performed By: #### L 100.0100, L500.2500, L300.3900, L3300.4400 #### [facility] [address] [place], [address] RDW SD 45.2 fl High 35.1-43.9 [facility] Comment on above: Performed By: #### L 100.0100, L500.2500, L300.3900, L3300.4400 #### [facility] [address] [place], [address] WBC (Bld) [#/Vol] 13.6 10*3/uL High 4.4-11.0 [facility] Comment on above: Performed By: #### L 100.0100, L500.2500, L300.3900, L3300.4400 #### [facility] [address] [place], [address] Carbon dioxide, total [Moles /volume] in Central venous bloodOrdered By: Anoop Blackmon on 09-08-2024 CO2 [Moles/Vol] 22.4 mmol/L 21.0-32.0 [facility] Chloride assayOrdered By: Monserrat Blackmon on 09-08-2024 Chloride [Moles/Vol] 105 mmol/L 98-108 [facility] Emergency Department Summary on 09-08-2024 Emergency Department Summary [facility] Medical Records Department [address] [place] [address] Emergency Department Summary 09/08/24 MR#: [id number] Acct: [id number] Name: EZRA GONZALEZ Rep #: [id number] : 1935 89 From: Anoop Blackmon MD [...] symptoms: Yes Recent Illness/Hospitalizati on: No PFSH PFS Medical History Closed fracture [...] (more content not included)... Normal [facility] Eosinophil percentageOrdered By: Anoop Blackmon on 09-08-2024 Eosinophils/100 WBC (Bld) 0.7 % 0-5 [facility] Erythrocyte distribution wid th ratioOrdered By: Anoop Blackmon on 09-08-2024 Erythrocyte distribution width (RBC) [Ratio] 13.2 % 11.6-14.6 [facility] Erythrocyte distribution wid th standard deviationOrdered By: Anoop Blackmon on 09-08-2024 Erythrocyte distribution width (RBC) [Ratio] 45.2 fl High 35.1-43.9 [facility] Glomerular filtration rate ( GFR) estimation/1.73 sq m using serum, plasma, or whole bOrdered By: Anoop Blackmon on 09-08-2024 GFR/1.73 sq M.predicted among non-blacks MDRD (S/P/Bld) [Vol rate/Area] 54 mL/min/{1.73_m2} Low >60 [facility] Comment on above: mL/min/1.73m2 CKD-EP I Creatinine Equation (2020) Hematocrit Auto (Bld) [Volum e fraction]Ordered By: Anooppierce Blackmon on 09-08-2024 Hematocrit (Bld) [Volume fraction] 41.4 % 37-47 [facility] Hemoglobin measurementOrdere d By: [facility] on 09-08-2024 Hemoglobin (Bld) [Mass/Vol] 13.8 g/dL 12.0-15.0 [facility] Immature granulocytes/100 WB C Auto (Bld)Ordered By: Anooppierce Blackmon on 09-08-2024 Immature granulocytes/100 WBC (Bld) 0.400 % 0.0-0.9 [facility] Comment on above: IG% - Immature Granu locytes (promyelocytes, myelocytes and metamyelocytes) > 1% indicates that a LEFT SHIFT is Present. International normalized rat io (INR) calculationOrdered By: Anooppierce Blackmon on 09-08-2024 INR Coag (Bld) [Relative time] 2.9 {INR} [facility] MCV (mean corpuscular volume ) determinationOrdered By: Anooppierce Blackmon on 09-08-2024 MCV (RBC) [Entitic vol] 94.1 fL 81-99 [facility] Mean corpuscular hemoglobin (MCH) determinationOrdered By: Anoop Blackmon on 09-08-2024 MCH (RBC) [Entitic mass] 31.4 pg 27.0-32.0 [facility] Mean corpuscular hemoglobin concentration (MCHC) determinationOrdered By: [facility] on 09-08-2024 MCHC (RBC) [Mass/Vol] 33.3 g/dL 32-36 [facility] Mean platelet volume determi nationOrdered By: Anoop Blackmon on 09-08-2024 Platelet mean volume (Bld) [Entitic vol] 10.8 fL 6.2-12.0 [facility] Monocyte percentageOrdered B y: Anoop Blackmon on 09-08-2024 Monocytes/100 WBC (Bld) 6.6 % 0-10 [facility] Neutrophil percentageOrdered By: Anooppierce Blackmon on 09-08-2024 Neutrophils/100 WBC (Bld) 75.9 % High 47-70 [facility] Nucleated red blood cell per centageOrdered By: Anooppierce Blackmon on 09-08-2024 Nucleated RBC/100 WBC (Bld) [Ratio] 0 % 0-5 [facility] Platelet countOrdered By: Monserrat Blackmon on 09-08-2024 Platelets (Bld) [#/Vol] 326 10*3/uL 150-450 [facility] Potassium measurement (mass/ volume)Ordered By: Anoop Blackmon on 09-08-2024 Potassium (Unsp spec) [Mass/Vol] 4.7 mmol/L 3.3-5.1 [facility] Prothrombin Time w/INRon INR Coag (PPP) [Relative time] 2.9 {INR} Normal [facility] Comment on above: Performed By: #### L 100.0100, L500.2500, L300.3900, L3300.4400 ####[facility] [address] [place], [address] PT Coag (PPP) [Time] 30.7 s High 11.7-14.9 [facility] Comment on above: Performed By: #### L 100.0100, L500.2500, L300.3900, L3300.4400 ####[facility] [address] [place], [address] Prothrombin timeOrdered By: Anoop Blackmon on 09-08-2024 PT Coag (PPP) [Time] 30.7 s High 11.7-14.9 [facility] RBC Auto (Bld) [#/Vol]Ordere d By: Anoop Blackmon on 09-08-2024 RBC (Bld) [#/Vol] 4.40 10*6/uL 4.2-5.4 [facility] Serum creatinine measurement (mass/volume)Ordered By: Anoop Blackmon on 09-08-2024 Creatinine [Mass/Vol] 1.00 mg/dL 0.70-1.20 [facility] Serum glucose measurement (m ass/volume)Ordered By: Anoop Blackmon on 09-08-2024 Glucose [Mass/Vol] 149 mg/dL High 70-99 [facility] Serum or plasma calcium viktoria urement (mass/volume)Ordered By: Anoop Blackmon on 09-08-2024 Calcium [Mass/Vol] 8.9 mg/dL 7.6-11.0 [facility] Serum or plasma lamotrigine measurement (mass/volume)Ordered By: Anoop Blackmon on 09-08-2024 lamoTRIgine [Mass/Vol] 1.2 ug/mL Low 2.0-20.0 [facility] Comment on above: Detection Limit = 1. 0Performed at: [facility] [id number] Director: Brandon Wells MD, Phone: [phone] Serum or plasma urea nitroge n measurement (mass/volume)Ordered By: Anoop Blackmon on 09-08-2024 Urea nitrogen [Mass/Vol] 35 mg/dL High 4-19 [facility] Sodium levelOrdered By: Anoop Blackmon on 09-08-2024 Sodium [Moles/Vol] 138 mmol/L 133-145 [facility] White blood cell (WBC) count Ordered By: Anoop Blackmon on 09-08-2024 WBC (Bld) [#/Vol] 13.6 10*3/uL High 4.4-11.0 [facility] International normalized rat io (INR) calculationOrdered By: Cesar Cole on 08-18-2024 INR Coag (Bld) [Relative time] 2.6 {INR} [facility] Prothrombin timeOrdered By: Garber Douglas on 08-18-2024 PT Coag (PPP) [Time] 28.1 s High 11.7-14.9 [facility] International normalized rat io (INR) calculationOrdered By: Cesar Douglas on 07-19-2024 INR Coag (Bld) [Relative time] 2.2 {INR} [facility] Prothrombin timeOrdered By: Cesar Cole on 07-19-2024 PT Coag (PPP) [Time] 25.3 s High 11.7-14.9 [facility] Cardiology Visit Reporton Cardiology Visit Report [facility] [address] [place] [address] OFFICE VISIT Date of Service: 07/01/24 MR#: [id number] Acct: [id number] Name: EZRA GONZALEZ Rep #: [id number] : 1935 Provider: Dr. Cesar Cole MD [...] atrial fibrillation. She is a reside at [facility]. From a cardiac standpoint, patient [...] Monitor Intake Visit Reasons: 1 Y FU Glaze Mixer Required: No Accompanied by: Self Is patient [...] (more content not included)... Normal [facility] International normalized rat io (INR) calculationOrdered By: Kvng Ochoa on 06-16-2024 INR Coag (Bld) [Relative time] 2.4 {INR} [facility] Prothrombin timeOrdered By: Kvng Ochoa on 06-16-2024 PT Coag (PPP) [Time] 26.6 s High 11.7-14.9 [facility] Absolute lymphocyte countOrd ered By: Kvng Ochoa on 06-09-2024 Lymphocytes Auto (Unsp spec) [#/Vol] 2.06 10*3/uL 0.83-4.51 [facility] Absolute neutrophil countOrd ered By: Kvng Ochoa on 06-09-2024 Neutrophils (Bld) [#/Vol] 5.6 10*3/uL 2.0-7.7 [facility] Anion gap in Serum or Plasma Ordered By: Kvng Ochoa on 06-09-2024 Anion gap [Moles/Vol] 13 mmol/L 5-15 [facility] Automated lymphocyte count a s percentage of total leukocytesOrdered By: Kvng Ochoa on 06-09-2024 Lymphocytes/100 WBC Auto (Unsp spec) 23.0 % 19-41 [facility] BUN/creatinine ratioOrdered By: Kvng Ochoa on 06-09-2024 Urea nitrogen/Creatinine [Mass ratio] 21.5 mg/mg High 10-20 [facility] Basophil percentageOrdered B y: Kvng Ochoa on 06-09-2024 Basophils/100 WBC (Bld) 0.6 % 0-1 [facility] Carbon dioxide, total [Moles /volume] in Central venous bloodOrdered By: Kvng Ochoa on 06-09-2024 CO2 [Moles/Vol] 22.4 mmol/L 21.0-32.0 [facility] Chloride assayOrdered By: Costa Ochoa on 06-09-2024 Chloride [Moles/Vol] 108 mmol/L 98-108 [facility] Eosinophil percentageOrdered By: Kvng Ochoa on 06-09-2024 Eosinophils/100 WBC (Bld) 4.8 % 0-5 [facility] Erythrocyte distribution wid th ratioOrdered By: Kvng Ochoa on 06-09-2024 Erythrocyte distribution width (RBC) [Ratio] 14.6 % 11.6-14.6 [facility] Erythrocyte distribution wid th standard deviationOrdered By: Kvng Ochoa on 06-09-2024 Erythrocyte distribution width (RBC) [Entitic vol] 49.2 fL High 35.1-43.9 [facility] Erythrocyte distribution width (RBC) [Ratio] 49.2 fl High 35.1-43.9 [facility] GFR/1.73 sq M.predicted sonia g non-blacks MDRD (S/P/Bld) [Vol rate/Area]Ordered By: Kvng Ochoa on 06-09-2024 Estimated GFR (MDRD) Non-Af Amer 59 Low >60 [facility] Comment on above: mL/min/1.73m2 CKD-EP I Creatinine Equation (2020) Glomerular filtration rate ( GFR) estimation/1.73 sq m using serum, plasma, or whole bOrdered By: Kvng Ochoa on 06-09-2024 GFR/1.73 sq M.predicted among non-blacks MDRD (S/P/Bld) [Vol rate/Area] 59 mL/min/{1.73_m2} Low >60 [facility] Comment on above: mL/min/1.73m2 CKD-EP I Creatinine Equation (2020) Hematocrit Auto (Bld) [Volum e fraction]Ordered By: Kvng Ochoa on 06-09-2024 Hematocrit (Bld) [Volume fraction] 38.3 % 37-47 [facility] Hemoglobin A1c percentageOrd ered By: Kvng Ochoa on 06-09-2024 HbA1c (Bld) [Mass fraction] 6.5 % >5.7 [facility] Hemoglobin measurementOrdere d By: Kvng Ochoa on 06-09-2024 Hemoglobin (Bld) [Mass/Vol] 12.4 g/dL 12.0-15.0 [facility] Immature granulocytes/100 WB C Auto (Bld)Ordered By: Kvng Ochoa on 06-09-2024 Immature granulocytes/100 WBC (Bld) 0.200 % 0.0-0.9 [facility] Comment on above: IG% - Immature Granu locytes (promyelocytes, myelocytes and metamyelocytes) > 1% indicates that a LEFT SHIFT is Present. Lymphocytes Auto (Unsp spec) [#/Vol]Ordered By: Kvng Ochoa on 06-09-2024 Lymphocytes (Bld) [#/Vol] 2.06 10*3/uL 0.83-4.5 1 [facility] Lymphocytes/100 WBC Auto (Un sp spec)Ordered By: Kvng Ochoa on 06-09-2024 Lymphocytes/100 WBC (Bld) 23.0 % 19-41 [facility] MCV (mean corpuscular volume ) determinationOrdered By: Kvng Ochoa on 06-09-2024 MCV (RBC) [Entitic vol] 91.8 fL 81-99 [facility] Mean corpuscular hemoglobin (MCH) determinationOrdered By: Kvng Ochoa on 06-09-2024 MCH (RBC) [Entitic mass] 29.7 pg 27.0-32.0 [facility] Mean corpuscular hemoglobin concentration (MCHC) determinationOrdered By: Kvng Ochoa on 06-09-2024 MCHC (RBC) [Mass/Vol] 32.4 g/dL 32-36 [facility] Mean platelet volume determi nationOrdered By: Kvng Ochoa on 06-09-2024 Platelet mean volume (Bld) [Entitic vol] 10.2 fL 6.2-12.0 [facility] Monocyte percentageOrdered B y: Kvng Ochoa on 06-09-2024 Monocytes/100 WBC (Bld) 8.6 % 0-10 [facility] Neutrophil percentageOrdered By: Kvng Ochoa on 06-09-2024 Neutrophils/100 WBC (Bld) 62.8 % 47-70 [facility] Nucleated red blood cell per centageOrdered By: Kvng Ochoa on 06-09-2024 Nucleated RBC/100 WBC (Bld) [Ratio] 0 % 0-5 [facility] Platelet countOrdered By: Costa Ochoa on 06-09-2024 Platelets (Bld) [#/Vol] 323 10*3/uL 150-450 [facility] Potassium (Unsp spec) [Mass/ Vol]Ordered By: Kvng Ochoa on 06-09-2024 Potassium [Moles/Vol] 4.7 mmol/L 3.3-5.1 [facility] Potassium measurement (mass/ volume)Ordered By: Kvng Ochoa on 06-09-2024 Potassium (Unsp spec) [Mass/Vol] 4.7 mmol/L 3.3-5.1 [facility] RBC Auto (Bld) [#/Vol]Ordere d By: Kvng Ochoa on 06-09-2024 RBC (Bld) [#/Vol] 4.17 10*6/uL Low 4.2-5.4 [facility] Serum creatinine measurement (mass/volume)Ordered By: Kvng Ochoa on 06-09-2024 Creatinine [Mass/Vol] 0.94 mg/dL 0.70-1.20 [facility] Serum glucose measurement (m ass/volume)Ordered By: Kvng Ochoa on 06-09-2024 Glucose [Mass/Vol] 137 mg/dL High 70-99 [facility] Serum or plasma calcium viktoria urement (mass/volume)Ordered By: Kvng Ochoa on 06-09-2024 Calcium [Mass/Vol] 8.9 mg/dL 7.6-11.0 [facility] Serum or plasma urea nitroge n measurement (mass/volume)Ordered By: Kvng Ochoa on 06-09-2024 Urea nitrogen [Mass/Vol] 20 mg/dL High 4-19 [facility] Sodium levelOrdered By: Dru Ochoa on 06-09-2024 Sodium [Moles/Vol] 143 mmol/L 133-145 [facility] White blood cell (WBC) count Ordered By: Kvng Ochoa on 06-09-2024 WBC (Bld) [#/Vol] 9.0 10*3/uL 4.4-11.0 [facility] INR Coag (BldC) [Relative ti me]Ordered By: Cesar Cole on 05-19-2024 INR Coag (Bld) [Relative time] 2.9 {INR} [facility] Comment on above: Critical Value > 4.0 International normalized rat io (INR) measurement by fingerstickOrdered By: Cesar Cole on 05-19-2024 INR Coag (BldC) [Relative time] 2.9 [facility] Comment on above: Critical Value > 4.0 PT Coag (Bld) [Time]Ordered By: Cesar Cole on 05-19-2024 Bedside Prothrombin Time 30.4 SEC High 11.7-14.9 [facility] Whole blood prothrombin time Ordered By: Cesar Cole on 05-19-2024 PT Coag (Bld) [Time] 30.4 s High 11.7-14.9 [facility] Serum or plasma lamotrigine measurement (mass/volume)Ordered By: Anant Juarez on 05-12-2024 lamoTRIgine [Mass/Vol] 1.8 ug/mL Low 2.0-20.0 [facility] Comment on above: Detection Limit = 1. 0Performed at: [facility] [address] [id number] Director: Brandon Wells MD, Phone: [phone] Venous blood ammonia measure mentOrdered By: Anant Juarez on 05-12-2024 Ammonia (P) [Moles/Vol] 17.0 umol/L - [facility] lamoTRIgine [Mass/Vol]Ordere d By: Anant Juarez on 05-12-2024 Lamotrigine (Lamictal) Level 1.8 ug/mL Low 2.0-20.0 [facility] Comment on above: Detection Limit = 1. 0Performed at: [facility] [id number] [facility], [place], [place] [id number] Director: Brandon Wells MD, Phone: [phone] Neurology Visit Reporton Neurology Visit Report [facility] [address] [facility], [address] [place] [address] OFFICE VISIT Date of Service: 05/10/24 MR#: [id number] Acct: [id number] Name: EZRA GONZALEZ Rep #: [id number] : 1935 Provider: Dr. Anant baez MD Age/Sex: 88/F [place] [facility] [place] [place]: Signed HPI HPI [...] had difficulty managing her finances in an saddle maker way. She has become lost while driving [...] (more content not included)... Normal [facility] INR Coag (BldC) [Relative ti me]Ordered By: Cesar Cole on 05-05-2024 INR Coag (Bld) [Relative time] 2.5 {INR} [facility] Comment on above: Critical Value > 4.0 PT Coag (Bld) [Time]Ordered By: Cesar Cole on 05-05-2024 Bedside Prothrombin Time 26.9 SEC High 11.7-14.9 [facility] International normalized rat io (INR) calculationOrdered By: Kvng Ochoa on 04-28-2024 INR Coag (Bld) [Relative time] 3.4 {INR} [facility] Prothrombin timeOrdered By: Kvng Ochoa on 04-28-2024 PT Coag (PPP) [Time] 35.4 s High 11.7-14.9 [facility] International normalized rat io (INR) calculationOrdered By: Kvng Ochoa on 04-14-2024 INR Coag (Bld) [Relative time] 3.0 {INR} [facility] Prothrombin timeOrdered By: Kvng Ochoa on 04-14-2024 PT Coag (PPP) [Time] 31.4 s High 11.7-14.9 [facility] Blood urea nitrogen (BUN)/cr eatinine ratioOrdered By: Kvng Ochoa on 04-09-2024 Urea nitrogen/Creatinine [Mass ratio] 13.5 mg/mg 01-17 [facility] Carbon dioxide measurementOr dered By: Kvng Ochoa on 04-09-2024 CO2 [Moles/Vol] 28.0 mmol/L 21.0-32.0 [facility] Chloride measurementOrdered By: Kvng Ochoa on 01-10-2025 Chloride [Moles/Vol] 106 mmol/L 98-107 [facility] Estimated glomerular filtrat ion rate (GFR) AmericanOrdered By: Kvng Ochoa on 04-09-2024 Estimated GFR (MDRD) Amer 70 mL/min >60 [facility] Comment on above: GFR Calc Glomerular filtration rate ( GFR) estimationOrdered By: Kvng Ochoa on 04-09-2024 Estimated GFR (MDRD) Non-Af Amer 58 mL/min Low >60 [facility] Comment on above: Non- GFR Calc Glucose measurementOrdered B y: Kvng Ochoa on 04-09-2024 Glucose [Mass/Vol] 116 mg/dL High 74-106 [facility] Comment on above: Fasting Glucose resu lt from 100 to 125 mg/dL suggests IMPAIRED HOMEOSTASIS per A.D.A. criteria. Potassium measurementOrdered By: Kvng Ochoa on 04-09-2024 Potassium [Moles/Vol] 4.3 mmol/L 3.5-5.1 [facility] Serum anion gap measurementO rdered By: Kvng Ochoa on 04-09-2024 Anion gap [Moles/Vol] 3 mmol/L Low 5-15 [facility] Serum or plasma calcium viktoria urement (mass/volume)Ordered By: Kvng Ochoa on 04-09-2024 Calcium [Mass/Vol] 8.8 mg/dL 8.5-10.1 [facility] Serum or plasma creatinine m easurement (mass/volume)Ordered By: Kvng Ochoa on 04-09-2024 Creatinine [Mass/Vol] 0.96 mg/dL 0.55-1.02 [facility] Comment on above: The validity of the calculated GFR & GFRAA in patients over 70 years has not been determined. Clinical correlation is essential. Serum or plasma urea nitroge n measurement (mass/volume)Ordered By: Kvng Ochoa on 04-09-2024 Urea nitrogen [Mass/Vol] 13 mg/dL 7-18 [facility] Sodium levelOrdered By: Dru Ochoa on 04-09-2024 Sodium [Moles/Vol] 137 mmol/L 136-145 [facility] International normalized rat io (INR) calculationOrdered By: Kvng Ochoa on 04-06-2024 INR Coag (Bld) [Relative time] 2.6 {INR} [facility] Prothrombin timeOrdered By: Kvng Ochoa on 04-06-2024 PT Coag (PPP) [Time] 28.8 s High 11.7-14.9 [facility] INR Coag (BldC) [Relative ti me]Ordered By: Kvng Ochoa on 04-05-2024 INR Coag (Bld) [Relative time] 3.5 {INR} [facility] Comment on above: Critical Value > 4.0 PT Coag (Bld) [Time]Ordered By: Kvng Ochoa on 04-05-2024 Bedside Prothrombin Time 35.4 SEC High 11.7-14.9 [facility] International normalized rat io (INR) calculationOrdered By: Kvng Ochoa on 03-29-2024 INR Coag (Bld) [Relative time] 1.5 {INR} [facility] Prothrombin timeOrdered By: Kvng Ochoa on 03-29-2024 PT Coag (PPP) [Time] 17.9 s High 11.7-14.9 [facility] INR Coag (BldC) [Relative ti me]Ordered By: Kvng Ochoa on 03-26-2024 INR Coag (Bld) [Relative time] 3.4 {INR} [facility] Comment on above: Critical Value > 4.0 PT Coag (Bld) [Time]Ordered By: Kvng Ochoa on 03-26-2024 Bedside Prothrombin Time 34.4 SEC High 11.7-14.9 [facility] INR Coag (BldC) [Relative ti me]Ordered By: Kvng Ochoa on 03-25-2024 INR Coag (Bld) [Relative time] 3.8 {INR} [facility] Comment on above: Critical Value > 4.0 PT Coag (Bld) [Time]Ordered By: Kvng Ochoa on 03-25-2024 Bedside Prothrombin Time 37.8 SEC High 11.7-14.9 [facility] International normalized rat io (INR) calculationOrdered By: Kvng Ochoa on 03-19-2024 INR Coag (Bld) [Relative time] 3.0 {INR} [facility] Prothrombin timeOrdered By: Kvng Ochoa on 03-19-2024 PT Coag (PPP) [Time] 30.7 s High 11.7-14.9 [facility] INR Coag (BldC) [Relative ti me]Ordered By: Kvng Ochoa on 03-17-2024 INR Coag (Bld) [Relative time] 3.3 {INR} [facility] Comment on above: Critical Value > 4.0 PT Coag (Bld) [Time]Ordered By: Kvng Ochoa on 03-17-2024 Bedside Prothrombin Time 34.2 SEC High 11.7-14.9 [facility] INR Coag (BldC) [Relative ti me]Ordered By: Kvng Ochoa on 03-10-2024 INR Coag (Bld) [Relative time] 2.4 {INR} [facility] Comment on above: Critical Value > 4.0 PT Coag (Bld) [Time]Ordered By: Kvng Ochoa on 03-10-2024 Bedside Prothrombin Time 25.4 SEC High 11.7-14.9 [facility] International normalized rat io (INR) calculationOrdered By: Kvng Ochoa on 03-08-2024 INR Coag (Bld) [Relative time] 1.8 {INR} [facility] Prothrombin timeOrdered By: Kvng Ochoa on 03-08-2024 PT Coag (PPP) [Time] 21.1 s High 11.7-14.9 [facility] INR Coag (BldC) [Relative ti me]Ordered By: Kvng Ochoa on 03-04-2024 INR Coag (Bld) [Relative time] 1.8 {INR} [facility] Comment on above: Critical Value > 4.0 PT Coag (Bld) [Time]Ordered By: Kvng Ochoa on 03-04-2024 Bedside Prothrombin Time 20.2 SEC High 11.7-14.9 [facility] INR Coag (BldC) [Relative ti me]Ordered By: Kvng Ochoa on 02-05-2024 INR Coag (Bld) [Relative time] 2.2 {INR} [facility] Comment on above: Critical Value > 4.0 PT Coag (Bld) [Time]Ordered By: Kvng Ochoa on 02-05-2024 Bedside Prothrombin Time 22.8 SEC High 11.7-14.9 [facility] Capillary blood internationa l normalized ratio (INR)Ordered By: Alexandra Hagen on 06-30-2023 INR Coag (BldC) [Relative time] 2.4 [facility] Comment on above: Critical Value > 4.0 Whole blood prothrombin time Ordered By: Alexandra Hagen on 06-30-2023 PT Coag (Bld) [Time] 24.6 s 11.7-14.9 [facility] CARECOORDon 2023 [place] Patient Choice Patient Name: EZRA GONZALEZ Date of : 1935 [facility] CARECOORDon 06-20-2023 [facility] Site of Care Admission Date: 06/16/2023 01:38 PM Patient Name: EZRA GONZALEZ Location: [address] Date of : 1935 ------- Placement Information ------- Referral Type:Home Health Care Services - New Referral ID:[id number] Provider Name:[facility] Address 1:[address] Address 2: City:[place] Selection Factors:Patient/Famil y Choice State:[place] Normal [facility] [place] [facility] updated [place], pt i s requesting [...] order lunch. Notified TONIO, RN and community resource officer. . [facility] I SPOKE WITH DONOVAN, DENTIST AT [facility]. THEY CAN TAKE PT BACK TODAY. THEY CAN PROVIDE TRANSPORTATION BACK TO FACILITY AROUND 3 PM. AWARE PT WILL NEED PT AT FACILITY, THEY USE [employer] [facility], DID LET LIAISON NOW. WENT TO [...] WITH CONNIE PEREZ REGARDING THIS. [facility] Laboratory - Chemistry and C hemistry - challengeon 06-20-2023 Glucose [Mass/Vol] 125 mg/dL High 70 - 100 mg/dL [facility] - Coagulationon 0 3-22-2024 PT Coag (Bld) [Time] 11.3 s 9.0 - 1 2.0 s [facility] No Panel Informationon 06-19 Interpretation and review of laboratory results Abnormal [facility] Performed by: [facility], [address] [place] [address] CLIA ID: [id number] [facility] Radiology Study observation (narrative) Trina isabel PROTHROMBIN TIMEon INR Coag (PPP) [Relative time] 1.1 {INR} Normal 0.9-1.1 [facility] Comment on above: Result Comment: Reji [...] Myocardial Infarction Performed By: #### L [id number] ####Bias Cutting Machine Operator Vertical: ALEXANDRA BUSTAMANTE ([id number])[facility])[address] [place] [address] PT Coag (PPP) [Time] 11.3 s Normal 9.0-12.0 [facility] Comment on above: Performed By: #### L [id number] ####Bias Cutting Machine Operator Vertical: ALEXANDRA BUSTAMANTE ([id number])[facility] ([facility])[address] [place] [address] PT Coag (Bld) [Time]on 06-19 INR Coag (PPP) [Relative time] 1.1 {INR} 0.9 - 1.1 [facility] Comment on above: Recommended Anticoag ulant [...] Interpretation and review of laboratory results Normal [facility] Progress Noteon 06-20-2023 Progress Note Dc via DM cot to Josep MCARTHUR with all belongings [facility] Progress Note Called report to Maryanne at [facility] Progress Note [facility] Anticoagulatio n Management Service (RIA) Inpatient Warfarin Consult HPI: Ezra Gonzalez is a 87 y.o. female admitted on 06/16/2023 for Closed displaced fracture of medial condyle of right humerus, initial encounter [S42.930L] History reviewed. No pertinent past medical history. [...] patient can be classified as high risk ([id number] = 8). 2. Monitor for s/s of bleeding and drug interactions. Will adjust dose accordingly 3. RIA will manage while inpatient Dc Lombardi, PharmD Candidate Toshia Sanches, JpD, BCPS RIA is available daily [phone] via Duel Chat. If no response on Duel Chat then please page [phone]. Normal [facility] BASIC METABOLIC PANELon 05-30 Anion gap [Moles/Vol] 11 mmol/L Normal 3-13 [facility] Comment on above: Performed By: #### L [id number] ####Bias Cutting Machine Operator Vertical: ALEXANDRA BUSTAMANTE ([id number])[facility] ([facility])[address] [place] [address] Calcium [Mass/Vol] 8.3 mg/dL Low 8.4-10.4 [facility] Comment on above: Performed By: #### L [id number] ####Bias Cutting Machine Operator Vertical: ALEXANDRA BUSTAMANTE ([id number])[facility])[address] [place] [address] Chloride [Moles/Vol] 102 mmol/L Normal 98-107 [facility] Comment on above: Performed By: #### L [id number] ####Bias Cutting Machine Operator Vertical: ALEXANDRA BUSTAMANTE ([id number])[facility])[address] [place] [address] CO2 [Moles/Vol] 21 mmol/L Low 22-30 [facility] Comment on above: Performed By: #### L [id number] ####Bias Cutting Machine Operator Vertical: ALEXANDRA BUSTAMANTE ([id number])[facility])[address] [place] [address] Creatinine [Mass/Vol] 0.84 mg/dL Normal 0.52-1.04 [facility] Comment on above: Performed By: #### L [id number] ####Bias Cutting Machine Operator Vertical: ALEXANDRA BUSTAMANTE ([id number])[facility])[address] [place] [address] GLOMERULAR FILTRATION RATE ML/MIN/1.73 SQ M.PREDICTED 67.4 mL/min/1.73m*2 Normal >60.0 [facility] Comment on above: Result Comment: Calc ulation based on the Chronic Kidney Disease Epidemiology Collaboration (CKD-EPI) equation refit without adjustment for race Performed By: #### L [id number] ####Bias Cutting Machine Operator Vertical: ALEXANDRA BUSTAMANTE ([id number])[facility] ([facility])[address] [place] [address] [place] Glucose [Mass/Vol] 263 mg/dL High 70-100 [facility] Comment on above: Performed By: #### L [id number] ####Bias Cutting Machine Operator Vertical: ALEXANDRA BUSTAMANTE ([id number])[facility])[address] [place] [address] [place] Potassium [Moles/Vol] 4.7 mmol/L Normal 3.5-5.1 [facility] Comment on above: Performed By: #### L [id number] ####Bias Cutting Machine Operator Vertical: ALEXANDRA BUSTAMANTE ([id number])[facility])[address] [place] [address] Sodium [Moles/Vol] 133 mmol/L Low 135-145 [facility] Comment on above: Performed By: #### L [id number] ####Bias Cutting Machine Operator Vertical: ALEXANDRA BUSTAMANTE ([id number])[facility])[address] [place] [address] Urea nitrogen [Mass/Vol] 27 mg/dL High 7-17 [facility] Comment on above: Performed By: #### L [id number] ####Bias Cutting Machine Operator Vertical: ALEXANDRA BUSTAMANTE ([id number])[facility])[address] [place] [address] Basic metabolic 1998 panelon 06-19-2023 Anion gap [Moles/Vol] 11 mmol/L 3 - 13 mmol/L [facility] Calcium [Mass/Vol] 8.3 mg/dL Low 8.4 - 10. 4 mg/dL [facility] Chloride [Moles/Vol] 102 mmol/L 98 - 10 7 mmol/L [facility] CO2 [Moles/Vol] 21 mmol/L Low 22 - 30 mmol/L [facility] Creatinine [Mass/Vol] 0.84 mg/dL 0.52 - 1.04 mg/dL [facility] GFR/1.73 sq M.predicted MDRD (S/P/Bld) [Vol rate/Area] 67.4 mL/min/{1.73_m2} - PINF [facility] Comment on above: Calculation based on the Chronic Kidney Disease Epidemiology Collaboration (CKD-EPI) equation refit without adjustment for race Glucose [Mass/Vol] 263 mg/dL High 70 - 100 mg/dL [facility] Interpretation and review of laboratory results Abnormal [facility] Potassium [Moles/Vol] 4.7 mmol/L 3.5 - 5.1 mmol/L [facility] Sodium [Moles/Vol] 133 mmol/L Low 135 - 145 mmol/L [facility] Urea nitrogen [Mass/Vol] 27 mg/dL High 7 - 17 mg/dL [facility] CARECOORDon 06-19-2023 CARECOORD DAY #1 S/P ORIF OF RIGHT ARM. WAITING FOR PT/OT EVALS FOR DC PLANNING. Normal [facility] CBC W Auto Differential pane l (Bld)Ordered By: Leona Thakur on 06-19-2023 Basophils (Bld) [#/Vol] 0.0 10*3/uL 0.0 - 0.2 10*3/uL [facility] Basophils/100 WBC (Bld) 0.2 % 0.0 - 2.0 % [facility] Eosinophils (Bld) [#/Vol] 0.0 10*3/uL 0. 0 - 0.5 10*3/uL [facility] Eosinophils/100 WBC (Bld) 0.0 % 0.0 - 6.0 % [facility] Erythrocyte distribution width (RBC) [Ratio] 13.6 % 11.5 - 15.0 % [facility] Hematocrit (Bld) [Volume fraction] 35.0 % 35.0 - 47.0 % [facility] Hemoglobin (Bld) [Mass/Vol] 11.4 g/dL Low 11.7 - 16.0 g/dL [facility] Immature granulocytes (Bld) [#/Vol] 0.1 10*3/uL High NINF - 0.1 10*3/uL [facility] Immature granulocytes/100 WBC (Bld) 0.6 % 0.0 - 2.0 % [facility] Interpretation and review of laboratory results Abnormal [facility] Lymphocytes (Bld) [#/Vol] 0.8 10*3/uL Low 1. 0 - 4.3 10*3/uL [facility] Lymphocytes/100 WBC (Bld) 6.4 % Low 15 .0 - 45.0 % [facility] MCH (RBC) [Entitic mass] 28.6 pg 26. 0 - 34.0 pg [facility] MCHC (RBC) [Mass/Vol] 32.6 % 30.5 - 36.0 % [facility] MCV (RBC) [Entitic vol] 87.9 fL 77.0 - 99.0 fL [facility] Monocytes (Bld) [#/Vol] 0.6 10*3/uL 0.0 - 0.9 10*3/uL [facility] Monocytes/100 WBC (Bld) 4.6 % Low 5.0 - 13.0 % [facility] Neutrophils (Bld) [#/Vol] 11.2 10*3/uL High 1. 8 - 7.5 10*3/uL [facility] Neutrophils/100 WBC (Bld) 88.2 % High 38 .0 - 82.0 % [facility] Nucleated RBC/100 WBC (Bld) [Ratio] 0.0 % [facility] Platelet mean volume (Bld) [Entitic vol] 10.2 fL 9.0 - 12.7 fL [facility] Platelets (Bld) [#/Vol] 260 10*3/uL 140 - 440 10*3/uL [facility] RBC (Bld) [#/Vol] 3.98 10*6/uL 3.80 - 5.2 0 10*6/uL [facility] WBC (Bld) [#/Vol] 12.7 10*3/uL High 3.6 - 10.7 10*3/uL [facility] CBC WITH AUTO DIFFERENTIALon 06-19-2023 Basophils (Bld) [#/Vol] 0.0 10*3/uL Normal 0.0-0.2 [facility] Comment on above: Performed By: #### L [id number] ####Bias Cutting Machine Operator Vertical: ALEXANDRA BUSTAMANTE ([id number])[address] Basophils/100 WBC (Bld) 0.2 % Normal 0.0-2.0 [facility] Comment on above: Performed By: #### L [id number] ####Bias Cutting Machine Operator Vertical: ALEXANDRA [id number])[facility])[address] [place] [address] Eosinophils (Bld) [#/Vol] 0.0 10*3/uL Normal 0.0-0.5 [facility] Comment on above: Performed By: #### L [id number] ####Bias Cutting Machine Operator Vertical: ALEXANDRA [id number])[facility])[address] [place] [address] Eosinophils/100 WBC (Bld) 0.0 % Normal 0.0-6.0 [facility] Comment on above: Performed By: #### L [id number] ####Bias Cutting Machine Operator Vertical: ALEXANDRA BUSTAMANTE ([id number])[facility])[address] [place] [address] Erythrocyte distribution width (RBC) [Ratio] 13.6 % Normal 11.5-15.0 [facility] Comment on above: Performed By: #### L [id number] ####Bias Cutting Machine Operator Vertical: ALEXANDRA BUSTAMANTE ([id number])[facility])[address] [place] [address] Hematocrit (Bld) [Volume fraction] 35.0 % Normal 35.0-47.0 [facility] Comment on above: Performed By: #### L [id number] ####Bias Cutting Machine Operator Vertical: ALEXANDRA BUSTAMANTE ([id number])[facility])[address] [place] [address] Hemoglobin (Bld) [Mass/Vol] 11.4 g/dL Low 11.7-16.0 [facility] Comment on above: Performed By: #### L [id number] ####Bias Cutting Machine Operator Vertical: ALEXADNRA BUSTAMANTE ([id number])[facility])[address] [place] [address] IMMATURE GRANS % 0.6 % Normal 0.0-2.0 [facility] Comment on above: Performed By: #### L [id number] ####Bias Cutting Machine Operator Vertical: ALEXANDRA BUSTAMANTE ([id number])[facility])[address] [place] [address] IMMATURE GRANS ABSOLUTE 0.1 10*3/uL High <0.1 [facility] Comment on above: Performed By: #### L [id number] ####Bias Cutting Machine Operator Vertical: ALEXANDRA BUSTAMANTE ([id number])[facility])[address] [place] [address] Lymphocytes (Bld) [#/Vol] 0.8 10*3/uL Low 1.0-4.3 [facility] Comment on above: Performed By: #### L [id number] ####Bias Cutting Machine Operator Vertical: ALEXANDRA BUSTAMANTE ([id number])[facility])[address] [place] [address] Lymphocytes/100 WBC (Bld) 6.4 % Low 15.0-45.0 [facility] Comment on above: Performed By: #### L [id number] ####Bias Cutting Machine Operator Vertical: ALEXANDRA BUSTAMANTE ([id number])[facility])[address] [place] [address] MCH (RBC) [Entitic mass] 28.6 pg Normal 26.0-34.0 [facility] Comment on above: Performed By: #### L [id number] ####Bias Cutting Machine Operator Vertical: ALEXANDRA BUSTAMANTE ([id number])[facility])[address] [place] [address] MCHC 32.6 % Normal 30.5-36.0 [facility] Comment on above: Performed By: #### L [id number] ####Bias Cutting Machine Operator Vertical: ALEXANDRA BUSTAMANTE ([id number])[facility])[address] [place] [address] MCV (RBC) [Entitic vol] 87.9 fL Normal 77.0-99.0 [facility] Comment on above: Performed By: #### L [id number] ####Bias Cutting Machine Operator Vertical: ALEXANDRA BUSTAMANTE ([id number])[facility])[address] [place] [address] Monocytes (Bld) [#/Vol] 0.6 10*3/uL Normal 0.0-0.9 [facility] Comment on above: Performed By: #### L [id number] ####Bias Cutting Machine Operator Vertical: ALEXANDRA BUSTAMANTE ([id number])[facility])[address] [place] [address] Monocytes/100 WBC (Bld) 4.6 % Low 5.0-13.0 [facility] Comment on above: Performed By: #### L [id number] ####Bias Cutting Machine Operator Vertical: ALEXANDRA BUSTAMANTE ([id number])[facility])[address] [place] [address] NEUTROPHILS ABSOLUTE 11.2 10*3/uL High 1.8-7.5 [facility] Comment on above: Performed By: #### L [id number] ####Bias Cutting Machine Operator Vertical: ALEXANDRA BUSTAMANTE ([id number])[facility] [facility])[address] [place] [address] Neutrophils/100 WBC (Bld) 88.2 % High 38.0-82.0 [facility] Comment on above: Performed By: #### L [id number] ####Bias Cutting Machine Operator Vertical: ALEXANDRA BUSTAMANTE ([id number])[facility])[address] [place] [address] NRBC 0.0 /100 WBCs Normal 0.0-2.0 [facility] Comment on above: Performed By: #### L [id number] ####Bias Cutting Machine Operator Vertical: ALEXANDRA BUSTAMANTE ([id number])[facility] ([facility])[address] [place] [address] Platelet mean volume (Bld) [Entitic vol] 10.2 fL Normal 9.0-12.7 [facility] Comment on above: Performed By: #### L [id number] ####Bias Cutting Machine Operator Vertical: ALEXANDRA BUSTAMANTE ([id number])[facility])[address] [place] [address] Platelets (Bld) [#/Vol] 260 10*3/uL Normal 140-440 [facility] Comment on above: Performed By: #### L [id number] ####Bias Cutting Machine Operator Vertical: ALEXANDRA BUSTAMANTE ([id number])[facility] ([facility])[address] [place] [address] RBC (Bld) [#/Vol] 3.98 10*6/uL Normal 3.80-5.20 [facility] Comment on above: Performed By: #### L [id number] ####Bias Cutting Machine Operator Vertical: ALEXANDRA BUSTAMANTE ([id number])[facility] ([facility])[address] [place] [address] WBC (Bld) [#/Vol] 12.7 10*3/uL High 3.6-10.7 [facility] Comment on above: Performed By: #### L [id number] ####Bias Cutting Machine Operator Vertical: ALEXANDRA BUSTAMANTE ([id number])[facility] ([facility] [place] [address] Laboratory - Chemistry and C hemistry - challengeon 06-19-2023 Glucose [Mass/Vol] 220 mg/dL High 70 - 100 mg/dL [facility] Glucose [Mass/Vol] 137 mg/dL High 70 - 100 mg/dL [facility] Post.Bid.Ship Glucose [Mass/Vol] 141 mg/dL High 70 - 100 mg/dL [facility] Glucose [Mass/Vol] 177 mg/dL High 70 - 100 mg/dL [facility] Laboratory - Coagulationon 0 06-19-2023 PT Coag (Bld) [Time] 11.3 s 9.0 - 1 2.0 s [facility] Post.Bid.Ship No Panel Informationon 06-18 Interpretation and review of laboratory results Abnormal [facility] Performed by: [facility], [address] [place] [address] CLIA ID: [id number] [facility] Interpretation and review of laboratory results Abnormal [facility] Performed by: [facility], [address] [place] [address] CLIA ID: [id number] [facility] Interpretation and review of laboratory results Abnormal [facility] Performed by: [facility], [address] [place] [address] CLIA ID: [id number] [facility] Interpretation and review of laboratory results Abnormal [facility] Performed by: [facility], [address] [place] [address] CLIA ID: [id number] [facility] Radiology Study observation (narrative) [facility]mbrittanie Oconnell [facility] Radiology Study observation (narrative) [facility]ma Anish [facility] Radiology Study observation (narrative) [facility] Radiology Study observation (narrative) Summbrittanie Oconnell al[facility] PROTHROMBIN TIMEon INR Coag (PPP) [Relative time] 1.1 {INR} Normal 0.9-1.1 [facility] Comment on above: Result Comment: Reji [...] Myocardial Infarction Performed By: #### L [id number] ####Bias Cutting Machine Operator Vertical: ALEXANDRA BUSTAMANTE ([id number])[facility] ([address] PT Coag (PPP) [Time] 11.3 s Normal 9.0-12.0 [facility] Comment on above: Performed By: #### L [id number] ####Bias Cutting Machine Operator Vertical: ALEXANDRA BUSTAMANTE ([id number])[facility] ([facility])[address] [place] [address] PT Coag (Bld) [Time]on 06-18 INR Coag (PPP) [Relative time] 1.1 {INR} 0.9 - 1.1 [facility] Comment on above: Recommended Anticoag ulant [...] Interpretation and review of laboratory results Normal [facility] Progress Noteon 06-19-2023 Progress Note [facility] Anticoagulatio n Management Service (RIA) Inpatient Warfarin Consult HPI: Ezra Gonzalez is a 87 y.o. female admitted on 06/16/2023 for Closed displaced fracture of medial condyle of right humerus, initial encounter [S42.140O] History reviewed. No pertinent past medical history. [...] patient can be classified as high risk ([id number] = 8). 2. Monitor for s/s of bleeding and drug interactions. Will adjust dose accordingly 3. RIA will manage while inpatient Dc Lombardi, PharmD Candidate Jp BolanosD, [facility] RIA is available daily [phone] via [employer]. If no response on [employer] then please page [phone]. Normal [facility] BASIC METABOLIC PANELon 05-30-2023 Anion gap [Moles/Vol] 10 mmol/L Normal 3-13 [facility] Comment on above: Performed By: #### L [id number] ####Bias Cutting Machine Operator Vertical: ALEXANDRA BUSTAMANTE ([id number])[facility])[address] [place] [address] Calcium [Mass/Vol] 8.8 mg/dL Normal 8.4-10.4 [facility] Comment on above: Performed By: #### L [id number] ####Bias Cutting Machine Operator Vertical: ALEXANDRA BUSTAMANTE ([id number])[facility] ([facility])[address] [place] [address] [place] Chloride [Moles/Vol] 98 mmol/L Normal 98-107 [facility] Comment on above: Performed By: #### L [id number] ####Bias Cutting Machine Operator Vertical: ALEXANDRA BUSTAMANTE ([id number])[facility] ([facility])[address] [place] [address] [place] CO2 [Moles/Vol] 25 mmol/L Normal 22-30 [facility] Comment on above: Performed By: #### L [id number] ####Bias Cutting Machine Operator Vertical: ALEXANDRA BUSTAMANTE ([id number])[facility])[address] [place] [address] Creatinine [Mass/Vol] 0.83 mg/dL Normal 0.52-1.04 [facility] Comment on above: Performed By: #### L [id number] ####Bias Cutting Machine Operator Vertical: ALEXANDRA BUSTAMANTE ([id number])[facility])[address] [place] [address] GLOMERULAR FILTRATION RATE ML/MIN/1.73 SQ M.PREDICTED 68.3 mL/min/1.73m*2 Normal >60.0 [facility] Comment on above: Result Comment: Calc ulation based on the Chronic Kidney Disease Epidemiology Collaboration (CKD-EPI) equation refit without adjustment for race Performed By: #### L [id number] ####Bias Cutting Machine Operator Vertical: ALEXANDRA BUSTAMANTE ([id number])[facility])[address] [place] [address] Glucose [Mass/Vol] 163 mg/dL Normal [facility] Comment on above: Performed By: #### L [id number] ####Bias Cutting Machine Operator Vertical: ALEXANDRA BUSTAMANTE ([id number])[address] Order Comment: If no t done within the last 3 mos Performed By: #### L [id number] ####Bias Cutting Machine Operator Vertical: ALEXANDRA BUSTAMANTE ([id number])[facility])[address] [place] [address] Potassium [Moles/Vol] 4.6 mmol/L Normal 3.5-5.1 [facility] Comment on above: Performed By: #### L AB15 ####Bias Cutting Machine Operator Vertical: ALEXANDRA BUSTAMANTE ([id number])[facility])[address] [place] [address] Sodium [Moles/Vol] 133 mmol/L Low 135-145 [facility] Comment on above: Performed By: #### L [id number] ####Bias Cutting Machine Operator Vertical: ALEXANDRA BUSTAMANTE ([id number])[facility] ([facility])[address] [place] [address] Urea nitrogen [Mass/Vol] 24 mg/dL High 7-17 [facility] Comment on above: Performed By: #### L [id number] ####Bias Cutting Machine Operator Vertical: ALEXANDRA BUSTAMANTE ([id number])[facility] ([facility])[address] [place] [address] Basic metabolic 1998 panelon 06-18-2023 Anion gap [Moles/Vol] 10 mmol/L 3 - 13 mmol/L [facility] Calcium [Mass/Vol] 8.8 mg/dL 8.4 - 10. 4 mg/dL [facility] Chloride [Moles/Vol] 98 mmol/L 98 - 10 7 mmol/L [facility] CO2 [Moles/Vol] 25 mmol/L 22 - 30 mmol/L [facility] Creatinine [Mass/Vol] 0.83 mg/dL 0.52 - 1.04 mg/dL [facility] GFR/1.73 sq M.predicted MDRD (S/P/Bld) [Vol rate/Area] 68.3 mL/min/{1.73_m2} - PINF [facility] Comment on above: Calculation based on the Chronic Kidney Disease Epidemiology Collaboration (CKD-EPI) equation refit without adjustment for race Glucose [Mass/Vol] 163 mg/dL High 70 - 100 mg/dL [facility] Interpretation and review of laboratory results Abnormal [facility] Potassium [Moles/Vol] 4.6 mmol/L 3.5 - 5.1 mmol/L [facility] Sodium [Moles/Vol] 133 mmol/L Low 135 - 145 mmol/L [facility] Urea nitrogen [Mass/Vol] 24 mg/dL High 7 - 17 mg/dL [facility] CARECOORDon 06-18-2023 [place] Care Managment Initial Assessment Date: 06/18/2023 Patient Name: Ezra Gonzalez : 1935 Patient Information Source of Information: Patient Cognition/Language: WFL - Within Functional Limits Permission given to speak with patient player services representative/caregi saira as indicated: No Confirmation of Payer with patient/family: Yes Payer Name: [facility] Gary: No Confirmation of Primary Care Physician: Confirmed [...] CONTINUE TO FOLLOW. Shikha Gray RN Normal [facility] CBC W Auto Differential pane l (Bld)Ordered By: Nir Meza on 06-18-2023 Basophils (Bld) [#/Vol] 0.1 10*3/uL 0.0 - 0.2 10*3/uL [facility] Basophils/100 WBC (Bld) 0.4 % 0.0 - 2.0 % [facility] Eosinophils (Bld) [#/Vol] 0.2 10*3/uL 0. 0 - 0.5 10*3/uL [facility] Eosinophils/100 WBC (Bld) 1.3 % 0.0 - 6.0 % [facility] Erythrocyte distribution width (RBC) [Ratio] 13.8 % 11.5 - 15.0 % [facility] Hematocrit (Bld) [Volume fraction] 44.1 % 35.0 - 47.0 % [facility] Hemoglobin (Bld) [Mass/Vol] 13.9 g/dL 11.7 - 16.0 g/dL [facility] Immature granulocytes (Bld) [#/Vol] 0.1 10*3/uL High NINF - 0.1 10*3/uL [facility] Immature granulocytes/100 WBC (Bld) 0.4 % 0.0 - 2.0 % [facility] Interpretation and review of laboratory results Abnormal [facility] Lymphocytes (Bld) [#/Vol] 2.0 10*3/uL 1. 0 - 4.3 10*3/uL [facility] Lymphocytes/100 WBC (Bld) 13.1 % Low 15 .0 - 45.0 % [facility] MCH (RBC) [Entitic mass] 28.0 pg 26. 0 - 34.0 pg [facility] MCHC (RBC) [Mass/Vol] 31.5 % 30.5 - 36.0 % [facility] MCV (RBC) [Entitic vol] 88.9 fL 77.0 - 99.0 fL [facility] Monocytes (Bld) [#/Vol] 1.4 10*3/uL High 0.0 - 0.9 10*3/uL [facility] Monocytes/100 WBC (Bld) 9.0 % 5.0 - 13.0 % [facility] Neutrophils (Bld) [#/Vol] 11.8 10*3/uL High 1. 8 - 7.5 10*3/uL [facility] Neutrophils/100 WBC (Bld) 75.8 % 38 .0 - 82.0 % [facility] Nucleated RBC/100 WBC (Bld) [Ratio] 0.0 % [facility] Platelet mean volume (Bld) [Entitic vol] 10.1 fL 9.0 - 12.7 fL [facility] Platelets (Bld) [#/Vol] 375 10*3/uL 140 - 440 10*3/uL [facility] RBC (Bld) [#/Vol] 4.96 10*6/uL 3.80 - 5.2 0 10*6/uL [facility] WBC (Bld) [#/Vol] 15.5 10*3/uL High 3.6 - 10.7 10*3/uL [facility] CBC WITH AUTO DIFFERENTIALon 06-18-2023 Basophils (Bld) [#/Vol] 0.1 10*3/uL Normal 0.0-0.2 [facility] Comment on above: Performed By: #### L [id number] ####Bias Cutting Machine Operator Vertical: ALEXANDRA BUSTAMANTE ([id number])[facility])[address] [place] [address] [place] Basophils/100 WBC (Bld) 0.4 % Normal 0.0-2.0 [facility] Comment on above: Performed By: #### L [id number] ####Bias Cutting Machine Operator Vertical: ALEXANDRA BUSTAMANTE ([id number])[facility])[address] [place] [address] Eosinophils (Bld) [#/Vol] 0.2 10*3/uL Normal 0.0-0.5 [facility] Comment on above: Performed By: #### L [id number] ####Bias Cutting Machine Operator Vertical: ALEXANDRA BUSTAMANTE ([id number])[facility] ([facility])[address] [place] [address] Eosinophils/100 WBC (Bld) 1.3 % Normal 0.0-6.0 [facility] Comment on above: Performed By: #### L [id number] ####Bias Cutting Machine Operator Vertical: ALEXANDRA BUSTAMANTE ([id number])[facility])[address] [place] [address] Erythrocyte distribution width (RBC) [Ratio] 13.8 % Normal 11.5-15.0 [facility] Comment on above: Performed By: #### L [id number] ####Bias Cutting Machine Operator Vertical: ALEXANDRA BUSTAMANTE ([id number])[facility])[address] [place] [address] Hematocrit (Bld) [Volume fraction] 44.1 % Normal 35.0-47.0 [facility] Comment on above: Performed By: #### L [id number] ####Bias Cutting Machine Operator Vertical: ALEXANDRA [id number])[facility])[address] [place] [address] Hemoglobin (Bld) [Mass/Vol] 13.9 g/dL Normal 11.7-16.0 [facility] Comment on above: Performed By: #### L [id number] ####Bias Cutting Machine Operator Vertical: ALEXANDRA BUSTAMANTE ([id number])[facility])[address] [place] [address] IMMATURE GRANS % 0.4 % Normal 0.0-2.0 [facility] Comment on above: Performed By: #### L [id number] ####Bias Cutting Machine Operator Vertical: ALEXANDRA BUSTAMANTE ([id number])[facility])[address] [place] [address] IMMATURE GRANS ABSOLUTE 0.1 10*3/uL High <0.1 [facility] Comment on above: Performed By: #### L [id number] ####Bias Cutting Machine Operator Vertical: ALEXANDRA BUSTAMANTE ([id number])[facility])[address] [place] [address] Lymphocytes (Bld) [#/Vol] 2.0 10*3/uL Normal 1.0-4.3 [facility] Comment on above: Performed By: #### L [id number] ####Bias Cutting Machine Operator Vertical: ALEXANDRA BUSTAMANTE ([id number])[address] Lymphocytes/100 WBC (Bld) 13.1 % Low 15.0-45.0 [facility] Comment on above: Performed By: #### L [id number] ####Bias Cutting Machine Operator Vertical: ALEXANDRA BUSTAMANTE ([id number])[facility])[address] [place] [address] MCH (RBC) [Entitic mass] 28.0 pg Normal 26.0-34.0 [facility] Comment on above: Performed By: #### L [id number] ####Bias Cutting Machine Operator Vertical: ALEXANDRA BUSTAMANTE ([id number])[facility])[address] [place] [address] MCHC 31.5 % Normal 30.5-36.0 [facility] Comment on above: Performed By: #### L [id number] ####Bias Cutting Machine Operator Vertical: ALEXANDRA BUSTAMANTE ([id number])[facility])[address] [place] [address] MCV (RBC) [Entitic vol] 88.9 fL Normal 77.0-99.0 [facility] Comment on above: Performed By: #### L [id number] ####Bias Cutting Machine Operator Vertical: ALEXANDRA BUSTAMANTE ([id number])[facility] ([facility])[address] [place] [address] Monocytes (Bld) [#/Vol] 1.4 10*3/uL High 0.0-0.9 [facility] Comment on above: Performed By: #### L [id number] ####Bias Cutting Machine Operator Vertical: ALEXANDRA BUSTAMANTE ([id number])[facility])[address] [place] [address] Monocytes/100 WBC (Bld) 9.0 % Normal 5.0-13.0 [facility] Comment on above: Performed By: #### L [id number] ####Bias Cutting Machine Operator Vertical: ALEXANDRA BUSTAMANTE ([id number])[facility])[address] [place] [address] NEUTROPHILS ABSOLUTE 11.8 10*3/uL High 1.8-7.5 [facility] Comment on above: Performed By: #### L [id number] ####Bias Cutting Machine Operator Vertical: ALEXANDRA BUSTAMANTE ([id number])[facility])[address] [place] [address] Neutrophils/100 WBC (Bld) 75.8 % Normal 38.0-82.0 [facility] Comment on above: Performed By: #### L [id number] ####Bias Cutting Machine Operator Vertical: ALEXANDRA BUSTAMANTE ([id number])[facility])[address] [place] [address] NRBC 0.0 /100 WBCs Normal 0.0-2.0 [facility] Comment on above: Performed By: #### L [id number] ####Bias Cutting Machine Operator Vertical: ALEXANDRA BUSTAMANTE ([id number])[facility])[address] [place] [address] Platelet mean volume (Bld) [Entitic vol] 10.1 fL Normal 9.0-12.7 [facility] Comment on above: Performed By: #### L [id number] ####Bias Cutting Machine Operator Vertical: ALEXANDRA BUSTAMANTE ([id number])[facility])[address] [place] [address] [place] Platelets (Bld) [#/Vol] 375 10*3/uL Normal 140-440 [facility] Comment on above: Performed By: #### L [id number] ####Bias Cutting Machine Operator Vertical: ALEXANDRA BUSTAMANTE ([id number])[facility])[address] [place] [address] RBC (Bld) [#/Vol] 4.96 10*6/uL Normal 3.80-5.20 [facility] Comment on above: Performed By: #### L [id number] ####Bias Cutting Machine Operator Vertical: ALEXANDRA BUSTAMANTE ([id number])[facility])[address] [place] [address] WBC (Bld) [#/Vol] 15.5 10*3/uL High 3.6-10.7 [facility] Comment on above: Performed By: #### L [id number] ####Bias Cutting Machine Operator Vertical: ALEXANDRA BUSTAMANTE ([id number])[facility])[address] [place] [address] HEMOGLOBIN A1Con 06-18-2023 HbA1c (Bld) [Mass fraction] 7.3 % High <5.7 [facility] Comment on above: Order Comment: If no t done within the last 3 mos Result Comment: Norm al less than 5.7% Prediabetes 5.7% to 6.4% Diabetes 6.5% or higher --HgbA1C levels may not be accurate in patients who have renal disease, received recent blood transfusions, are anemic, or who have dyshemoglobinemia. Performed By: #### L [id number] ####Bias Cutting Machine Operator Vertical: ALEXANDRA BUSTAMANTE ([id number])[facility] ([facility])[address] IDNon 06-18-2023 IDN The patient is Moderately Stable - Low risk of patient condition declining or worsening The patient's goals for the shift include rest and pain control The clinical goals for the shift include rest and pain control Normal [facility] Laboratory - Chemistry and C hemistry - challengeon 06-18-2023 Glucose [Mass/Vol] 189 mg/dL High 70 - 100 mg/dL [facility] Procalcitonin [Mass/Vol] 0.06 ng/mL 0.0 0 - 0.09 ng/mL [facility] Glucose [Mass/Vol] 121 mg/dL High 70 - 100 mg/dL [facility] Average glucose Estimated from glycated hemoglobin (Bld) [Mass/Vol] 163 mg/dL [facility] - Hematology and Cell countson 06-18-2023 HbA1c (Bld) [Mass fraction] 7.3 % High NINF - 5.7 % [facility] Comment on above: Normal less than 5.7 % Prediabetes 5.7% to 6.4% Diabetes 6.5% or higher --HgbA1C levels may not be accurate in patients who have renal disease, received recent blood transfusions, are anemic, or who have dyshemoglobinemia. No Panel Informationon 06-17 Interpretation and review of laboratory results Abnormal [facility] Performed by: [facility], [address] [place] [address] CLIA ID: [id number] [facility] There is no interpretation needed for this exam. IMAGING Interpretation and review of laboratory results Abnormal [facility] Performed by: [facility], [address] [place] [address] CLIA ID: [id number] [facility] Interpretation and review of laboratory results Abnormal [facility] Radiology Study observation (narrative) Tirna isabel Radiology Study observation (narrative) [facility] Nursing Noteon 06-18-2023 Nursing Note Pt states no need to contact family. RN on floor states she will call pt's son,. Normal [facility] Nursing Note Patients wallet and watch locked up with security. OR notified patient states she has latex allergy Patients purse and glasses taken to pacu Normal [facility] Op Noteon 06-18-2023 Op Note [facility] OR [address] [facility] [address] Dept: [phone] Loc: [phone] Operative Report Patient Name: Ezra Gonzalez Date of : 1935 Date of Surgery: 06/18/23 Pre-operative diagnosis: Right intra-articular distal humerus fracture Post-operative diagnosis: Same Procedure(s): Open reduction internal fixation of right intra-articular distal humerus fracture Surgeon: Benitez Givens M.D. Icing And Glaze Maker(s): Lexa Aparicio M.D. Anesthesia: General and Regional [...] as well as medical complications such as OK, stroke, PE, DVT, and even . Pt [...] MD at 06/18/23, 7:20 PM [facility] Op Note Date: 06/16/2023 - 06/18/2023 Location: [facility] OR Name: Ezra Gonzalez, : 1935, Diagnosis Pre-op Diagnosis * Closed displaced fracture of medial condyle of right humerus, initial encounter [S42.880T] Post-op Diagnosis * Closed displaced fracture of medial condyle of right humerus, initial encounter [S42.670Q] Procedures OPEN REDUCTION INTERNAL FIXATION RIGHT DISTAL HUMERUS 88615 - NM OPTX HUMERAL SHFT FX W/PLATE/SCREWS W/WOCERCLAGE Surgeons * Benitez Givens - Primary Procedure Summary Anesthesia: * No anesthesia type entered * ASA: III Estimated Blood Loss: Minimal Drains: * None in log * Staff: Boy'S Adviser: Vivian Herrera RN Scrub Person: Linda Alvarez [...] follow. Normal [facility] Post.Bid.Ship [facility] PROCALCITONIN TESTon 024 PROCALCITONIN 0.06 ng/mL Normal 0.00-0.09 [facility] Comment on above: Result Comment: ORDE R COMMENTS: PCT <0.50 = Low risk of severe sepsis and/or septic shock. PCT >2.00 = High risk of severe sepsis and/or septic shock. Performed By: #### L [id number] ####Bias Cutting Machine Operator Vertical: ALEXANDRA BUSTAMANTE ([id number])[facility] ([id number] Procalcitonin [Mass/Vol]on 0 06-18-2023 Interpretation and review of laboratory results Normal [facility] PCT <0.50 = Low risk of severe sepsis and/or septic shock. PCT >2.00 = High risk of severe sepsis and/or septic shock. [facility] Progress Noteon 06-18-2023 Progress Note Nutrition rescreen completed. Chart reviewed. Patient to be monitored and followed by the diet equipment technician. NICA Watts [facility] Progress Note OCCUPATIONAL THERAPY [facility] Name/MRN: Ezra Gonzalez ([id number]) Date: 06/18/2023 OT eval and treat order received. Patient chart reviewed. Per Ortho note, "Plan for ORIF od R distal humerus." Will hold evaluation till after surgery. Louisa Cespedes, OT Normal [facility] Progress Note PHYSICAL THERAPY [facility] Name/MRN: Ezra Gonzalez ([id number]) Date: 06/18/2023 PT orders received and chart reviewed. Per ortho note, "Plan for ORIF R distal humerus". Will hold and attempt following surgery. Maryanne Neumann, PT [facility] ECG 12-LEADon 06-17-2023 ECG 12-LEAD IMPRESSION: Atrial fibrillation Probable left ventricular hypertrophy No previous ECG for comparison Electronically Signed On 06-17-2023 06:39:12 EDT by Thong Francois [facility] ED Nursing Noteon 06-17-2023 ED Nursing Note Patient resting in bed at this time, equal unlabored respirations noted and no acute distress, call león within reach Di Reyna RN 06/17/23 1153 [facility] ED Nursing Note Pt O2 desaturating t o mid 80s after receiving dilaudid IV. Pt placed on 2L NC and immediately back up to 95%. notified Alia Foster RN 06/17/23 1031 [facility] ED Nursing Note Pt upset with intermittent beeping of IV pump. RN made several attempts to reposition arm and flush line. IV pump will run and then become occluded. After fourth attempt at repositioning, pt called RN a nitwit. RN explained that it is preferable to not place a new line unless necessary. RN will request US IV line. Juanjo Pringle RN 06/16/230 Normal [facility] Laboratory - Chemistry and C hemistry - challengeon 06-17-2023 Glucose [Mass/Vol] 137 mg/dL High 70 - 100 mg/dL [facility] Laboratory - Coagulationon 0 06-17-2023 PT Coag (Bld) [Time] 14.5 s High 9.0 - 1 2.0 s [facility] No Panel Informationon 06-16 Interpretation and review of laboratory results Abnormal [facility] Performed by: [facility], [address] [place] [address] CLIA ID: [id number] [facility] Atrial fibrillation Probable left ventricular hypertrophy No previous ECG for comparison Electronically Signed On 06-17-2023 06:39:12 EDT by Thong Arvizu D O - 06/17/2023 IMPRESSION: Atrial fibrillation Probable left ventricular hypertrophy No previous ECG for comparison Electronically Signed On 06-17-2023 06:39:12 EDT by Thong Francois [facility] Radiology Study observation (narrative) [facility] No Panel InformationOrdered By: Thong Francois on 06-17-2023 P [place] 0 degrees [facility] [employer] Work Phone: NM Interval 0 ms [facility] [employer] Work Phone: QRS [place] -24 degrees [facility] [employer] Work Phone: QRSD Interval [address] [facility] h Work Phone: QT Interval 382 ms [facility] [employer] Work Phone: QTC Interval 442 ms [facility] [employer] Work Phone: T Wave [place] 31 degrees [facility] [employer] Work Phone: [facility] [employer] Work Phone: Nursing Noteon 06-17-2023 Nursing Note Patient home medication list updated, provider made aware. Normal [facility] PROTHROMBIN TIMEon INR Coag (PPP) [Relative time] 1.4 {INR} High 0.9-1.1 [facility] Comment on above: Result Comment: Reji [...] Infarction Performed By: #### L [id number] #### Bias Cutting Machine Operator Vertical: ALEXANDRA BUSTAMANTE ([id number]) [facility] [address] [place] [address] PT Coag (PPP) [Time] 14.5 s High 9.0-12.0 [facility] Comment on above: Performed By: #### L [id number] #### Bias Cutting Machine Operator Vertical: ALEXANDRA BUSTAMANTE ([id number]) [facility] [address] [place] [address] PT Coag (Bld) [Time]on 06-16 INR Coag (PPP) [Relative time] 1.4 {INR} High 0.9 - 1.1 [facility] Comment on above: Recommended Anticoag ulant [...] Interpretation and review of laboratory results Abnormal [facility] Progress Noteon 06-17-2023 Progress Note Due to OR availability, case cancelled for today. Moved to tomorrow, 06/17. Ok for diet today. NPO @NC. Keep splint C/D/I. vEette Viera MD Orthopaedic Surgery, PGY-5 [phone] Normal [facility] Vital signsOrdered By: Neeta Francois on 06-17-2023 Heart rate 80 /min bpm [facility] Work Phone: XR Chest Single viewon 06-16 No acute cardiopulmonary process identified. Other chronic findings as discussed. 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 [facility] Houston Chau MD - 06/17/2023 Patient [...] Date/Time: 06/17/2023 12:44 AM EDT [facility] Radiology Study observation (narrative) [facility] alth XR Chest Single viewOrdered By: Houston Chau on 06-17-2023 [facility] [employer] Work Phone: Absolute lymphocyte countOrd ered By: Lali Pimentel on 06-16-2023 Lymphocytes Auto (Unsp spec) [#/Vol] 3.86 10*3/uL 0.83-4.51 [facility] Automated lymphocyte count a s percentage of total leukocytesOrdered By: Lali Pimentel on 06-16-2023 Lymphocytes/100 WBC Auto (Unsp spec) 23.0 % 19-41 [facility] BASIC METABOLIC PANELon 05-29 Anion gap [Moles/Vol] 7 mmol/L Normal 3-13 [facility] Comment on above: Performed By: #### L [id number] ####Bias Cutting Machine Operator Vertical: ALEXANDRA BUSTAMANTE ([id number])[facility] ([facility])[address] [place] [address] Calcium [Mass/Vol] 8.6 mg/dL Normal 8.4-10.4 [facility] Comment on above: Performed By: #### L [id number] ####Bias Cutting Machine Operator Vertical: ALEXANDRA BUSTAMANTE ([id number])[facility] ([facility])[address] [place] [address] [place] Chloride [Moles/Vol] 99 mmol/L Normal 98-107 [facility] Comment on above: Performed By: #### L [id number] ####Bias Cutting Machine Operator Vertical: ALEXANDRA BUSTAMANTE ([id number])[facility] ([facility])[address] [place] [address] [place] CO2 [Moles/Vol] 29 mmol/L Normal 22-30 [facility] Comment on above: Performed By: #### L [id number] ####Bias Cutting Machine Operator Vertical: ALEXANDRA BUSTAMANTE ([id number])[facility])[address] [place] [address] Creatinine [Mass/Vol] 0.79 mg/dL Normal 0.52-1.04 [facility] Comment on above: Performed By: #### L [id number] ####Bias Cutting Machine Operator Vertical: ALEXANDRA BUSTAMANTE ([id number])[facility] ([facility])[address] [place] [address] [place] GLOMERULAR FILTRATION RATE ML/MIN/1.73 SQ M.PREDICTED 72.5 mL/min/1.73m*2 Normal >60.0 [facility] Comment on above: Result Comment: Calc ulation based on the Chronic Kidney Disease Epidemiology Collaboration (CKD-EPI) equation refit without adjustment for race Performed By: #### L [id number] ####Bias Cutting Machine Operator Vertical: ALEXANDRA BUSTAMANTE ([id number])[facility] ([facility])[address] [place] [address] Glucose [Mass/Vol] 186 mg/dL High 70-100 [facility] Comment on above: Performed By: #### L [id number] ####Bias Cutting Machine Operator Vertical: ALEXANDRA BUSTAMANTE ([id number])[facility])[address] [place] [address] Potassium [Moles/Vol] 4.5 mmol/L Normal 3.5-5.1 [facility] Comment on above: Performed By: #### L [id number] ####Bias Cutting Machine Operator Vertical: ALEXANDRA BUSTAMANTE ([id number])[facility])[address] [place] [address] [place] Sodium [Moles/Vol] 136 mmol/L Normal 135-145 [facility] Comment on above: Performed By: #### L [id number] ####Bias Cutting Machine Operator Vertical: ALEXANDRA BUSTAMANTE ([id number])[facility])[address] [place] [address] [place] Urea nitrogen [Mass/Vol] 26 mg/dL High 7-17 [facility] Comment on above: Performed By: #### L [id number] ####Bias Cutting Machine Operator Vertical: ALEXANDRA BUSTAMANTE ([id number])[facility] ([facility])[address] [place] [address] BLOOD TYPE AND SCREEN GELon 06-16-2023 ABO GROUPING A Normal [facility] Comment on above: Performed By: #### L [id number] ####Bias Cutting Machine Operator Vertical: ALEXANDRA BUSTAMANTE ([id number])[facility] ([facility])[address] [place] [address] RH TYPE IN BLOOD Positive Normal [facility] Comment on above: Performed By: #### L [id number] ####Bias Cutting Machine Operator Vertical: ALEXANDRA BUSTAMANTE ([id number])[facility] ([facility])[address] [place] [address] Basic metabolic 1998 panelon 06-16-2023 Anion gap [Moles/Vol] 7 mmol/L 3 - 13 mmol/L [facility] Calcium [Mass/Vol] 8.6 mg/dL 8.4 - 10. 4 mg/dL [facility] Chloride [Moles/Vol] 99 mmol/L 98 - 10 7 mmol/L [facility] CO2 [Moles/Vol] 29 mmol/L 22 - 30 mmol/L [facility] Creatinine [Mass/Vol] 0.79 mg/dL 0.52 - 1.04 mg/dL [facility] GFR/1.73 sq M.predicted MDRD (S/P/Bld) [Vol rate/Area] 72.5 mL/min/{1.73_m2} - PINF [facility] Comment on above: Calculation based on the Chronic Kidney Disease Epidemiology Collaboration (CKD-EPI) equation refit without adjustment for race Glucose [Mass/Vol] 186 mg/dL High 70 - 100 mg/dL [facility] Interpretation and review of laboratory results Abnormal [facility] Potassium [Moles/Vol] 4.5 mmol/L 3.5 - 5.1 mmol/L [facility] Sodium [Moles/Vol] 136 mmol/L 135 - 145 mmol/L [facility] Urea nitrogen [Mass/Vol] 26 mg/dL High 7 - 17 mg/dL [facility] Basophil percentageOrdered B y: Lali Pimentel on 06-16-2023 Basophils/100 WBC (Bld) 0.4 % 0-1 [facility] Chloride [Moles/Vol] 104 mmol/L 98-107 [facility] Eosinophils/100 WBC (Bld) 1.3 % 0-5 [facility] Glucose [Mass/Vol] 191 mg/dL 74-106 [facility] Comment on above: Fasting Glucose resu lt greater than or equal to 126 mg/dL suggests DIABETES MELLITUS per A.D.A. criteria. Hemoglobin (Bld) [Mass/Vol] 13.6 g/dL 12.0-15.0 [facility] Monocytes/100 WBC (Bld) 7.0 % 0-10 [facility] Neutrophils (Bld) [#/Vol] 11.4 10*3/uL 2.0-7.7 [facility] Neutrophils/100 WBC (Bld) 67.8 % 47-70 [facility] Potassium [Moles/Vol] 3.4 mmol/L 3.5-5.1 [facility] Sodium [Moles/Vol] 140 mmol/L 136-145 [facility] WBC (Bld) [#/Vol] 16.8 10*3/uL 4.4-11.0 [facility] Blood type and Crossmatch pa ro (Bld)on 06-16-2023 Blood group antibody screen GEL Ql Negative [facility] CBC W Auto Differential pane l (Bld)on 06-16-2023 Basophils (Bld) [#/Vol] 0.0 10*3/uL 0.0 - 0.2 10*3/uL [facility] Basophils/100 WBC (Bld) 0.2 % 0.0 - 2.0 % [facility] Eosinophils (Bld) [#/Vol] 0.0 10*3/uL 0. 0 - 0.5 10*3/uL [facility] Eosinophils/100 WBC (Bld) 0.0 % 0.0 - 6.0 % [facility] Erythrocyte distribution width (RBC) [Ratio] 13.6 % 11.5 - 15.0 % [facility] Hematocrit (Bld) [Volume fraction] 38.9 % 35.0 - 47.0 % [facility] Hemoglobin (Bld) [Mass/Vol] 12.8 g/dL 11.7 - 16.0 g/dL [facility] Immature granulocytes (Bld) [#/Vol] 0.1 10*3/uL High NINF - 0.1 10*3/uL [facility] Immature granulocytes/100 WBC (Bld) 0.6 % 0.0 - 2.0 % [facility] Interpretation and review of laboratory results Abnormal [facility] Lymphocytes (Bld) [#/Vol] 1.1 10*3/uL 1. 0 - 4.3 10*3/uL [facility] Lymphocytes/100 WBC (Bld) 6.5 % Low 15 .0 - 45.0 % [facility] MCH (RBC) [Entitic mass] 29.1 pg 26. 0 - 34.0 pg [facility] MCHC (RBC) [Mass/Vol] 32.9 % 30.5 - 36.0 % [facility] MCV (RBC) [Entitic vol] 88.4 fL 77.0 - 99.0 fL [facility] Monocytes (Bld) [#/Vol] 0.7 10*3/uL 0.0 - 0.9 10*3/uL [facility] Monocytes/100 WBC (Bld) 4.4 % Low 5.0 - 13.0 % [facility] Neutrophils (Bld) [#/Vol] 14.3 10*3/uL High 1. 8 - 7.5 10*3/uL [facility] Neutrophils/100 WBC (Bld) 88.3 % High 38 .0 - 82.0 % [facility] Nucleated RBC/100 WBC (Bld) [Ratio] 0.0 % [facility] Platelet mean volume (Bld) [Entitic vol] 9.9 fL 9.0 - 12.7 fL [facility] Platelets (Bld) [#/Vol] 357 10*3/uL 140 - 440 10*3/uL [facility] RBC (Bld) [#/Vol] 4.40 10*6/uL 3.80 - 5.2 0 10*6/uL [facility] WBC (Bld) [#/Vol] 16.2 10*3/uL High 3.6 - 10.7 10*3/uL [facility] CBC WITH AUTO DIFFERENTIALon 06-16-2023 Basophils (Bld) [#/Vol] 0.0 10*3/uL Normal 0.0-0.2 [facility] Comment on above: Performed By: #### L [id number] ####Bias Cutting Machine Operator Vertical: ALEXANDRA BUSTAMANTE ([id number])[facility])[address] [place] [address] Basophils/100 WBC (Bld) 0.2 % Normal 0.0-2.0 [facility] Comment on above: Performed By: #### L [id number] ####Bias Cutting Machine Operator Vertical: ALEXANDRA BUSTAMANTE ([id number])[facility])[address] [place] [address] Eosinophils (Bld) [#/Vol] 0.0 10*3/uL Normal 0.0-0.5 [facility] Comment on above: Performed By: #### L [id number] ####Bias Cutting Machine Operator Vertical: ALEXANDRA BUSTAMANTE ([id number])[facility])[address] [place] [address] Eosinophils/100 WBC (Bld) 0.0 % Normal 0.0-6.0 [facility] Comment on above: Performed By: #### L [id number] ####Bias Cutting Machine Operator Vertical: ALEXANDRA BUSTAMANTE ([id number])[address] Erythrocyte distribution width (RBC) [Ratio] 13.6 % Normal 11.5-15.0 [facility] Comment on above: Performed By: #### L [id number] ####Bias Cutting Machine Operator Vertical: ALEXANDRA BUSTAMANTE ([id number])[facility])[address] [place] [address] Hematocrit (Bld) [Volume fraction] 38.9 % Normal 35.0-47.0 [facility] Comment on above: Performed By: #### L [id number] ####Bias Cutting Machine Operator Vertical: ALEXANDRA BUSTAMANTE ([id number])[address] Hemoglobin (Bld) [Mass/Vol] 12.8 g/dL Normal 11.7-16.0 [facility] Comment on above: Performed By: #### L [id number] ####Bias Cutting Machine Operator Vertical: ALEXANDRA BUSTAMANTE ([id number])[facility])[address] [place] [address] IMMATURE GRANS % 0.6 % Normal 0.0-2.0 [facility] Comment on above: Performed By: #### L [id number] ####Bias Cutting Machine Operator Vertical: ALEXANDRA BUSTAMANTE ([id number])[facility])[address] [place] [address] IMMATURE GRANS ABSOLUTE 0.1 10*3/uL High <0.1 [facility] Comment on above: Performed By: #### L [id number] ####Bias Cutting Machine Operator Vertical: ALEXANDRA BUSTAMANTE ([id number])[facility])[address] [place] [address] Lymphocytes (Bld) [#/Vol] 1.1 10*3/uL Normal 1.0-4.3 [facility] Comment on above: Performed By: #### L [id number] ####Bias Cutting Machine Operator Vertical: ALEXANDRA BUSTAMANTE ([id number])[facility])[address] [place] [address] Lymphocytes/100 WBC (Bld) 6.5 % Low 15.0-45.0 [facility] Comment on above: Performed By: #### L [id number] ####Bias Cutting Machine Operator Vertical: ALEXANDRA BUSTAMANTE ([id number])[facility])[address] [place] [address] MCH (RBC) [Entitic mass] 29.1 pg Normal 26.0-34.0 [facility] Comment on above: Performed By: #### L [id number] ####Bias Cutting Machine Operator Vertical: ALEXANDRA BUSTAMANTE ([id number])[facility])[address] [place] [address] MCHC 32.9 % Normal 30.5-36.0 [facility] Comment on above: Performed By: #### L [id number] ####Bias Cutting Machine Operator Vertical: ALEXANDRA BUSTAMANTE ([id number])[facility])[address] [place] [address] [place] MCV (RBC) [Entitic vol] 88.4 fL Normal 77.0-99.0 [facility] Comment on above: Performed By: #### L [id number] ####Bias Cutting Machine Operator Vertical: ALEXANDRA BUSTAMANTE ([id number])[facility] ([facility])[address] [place] [address] Monocytes (Bld) [#/Vol] 0.7 10*3/uL Normal 0.0-0.9 [facility] Comment on above: Performed By: #### L [id number] ####Bias Cutting Machine Operator Vertical: ALEXANDRA BUSTAMANTE ([id number])[facility] ([facility])[address] [place] [address] Monocytes/100 WBC (Bld) 4.4 % Low 5.0-13.0 [facility] Comment on above: Performed By: #### L [id number] ####Bias Cutting Machine Operator Vertical: ALEXANDRA BUSTAMANTE ([id number])[facility] ([facility])[address] [place] [address] NEUTROPHILS ABSOLUTE 14.3 10*3/uL High 1.8-7.5 [facility] Comment on above: Performed By: #### L [id number] ####Bias Cutting Machine Operator Vertical: ALEXANDRA BUSTAMANTE ([id number])[facility] ([facility])[address] [place] [address] Neutrophils/100 WBC (Bld) 88.3 % High 38.0-82.0 [facility] Comment on above: Performed By: #### L [id number] ####Bias Cutting Machine Operator Vertical: ALEXANDRA BUSTAMANTE ([id number])[facility] ([facility])[address] [place] [address] [place] NRBC 0.0 /100 WBCs Normal 0.0-2.0 [facility] Comment on above: Performed By: #### L [id number] ####Bias Cutting Machine Operator Vertical: ALEXANDRA BUSTAMANTE ([id number])[facility] ([facility])[address] [place] [address] Platelet mean volume (Bld) [Entitic vol] 9.9 fL Normal 9.0-12.7 [facility] Comment on above: Performed By: #### L [id number] ####Bias Cutting Machine Operator Vertical: ALEXANDRA BUSTAMANTE ([id number])[facility])[address] [place] [address] Platelets (Bld) [#/Vol] 357 10*3/uL Normal 140-440 [facility] Comment on above: Performed By: #### L [id number] ####Bias Cutting Machine Operator Vertical: ALEXANDRA BUSTAMANTE ([id number])[facility] ([facility])[address] [place] [address] RBC (Bld) [#/Vol] 4.40 10*6/uL Normal 3.80-5.20 [facility] Comment on above: Performed By: #### L [id number] ####Bias Cutting Machine Operator Vertical: ALEXANDRA BUSTAMANTE ([id number])[facility])[address] [place] [address] WBC (Bld) [#/Vol] 16.2 10*3/uL High 3.6-10.7 [facility] Comment on above: Performed By: #### L [id number] ####Bias Cutting Machine Operator Vertical: ALEXANDRA BUSTAMANTE ([id number])[facility])[address] [place] [address] CT ELBOW RIGHT WO IV CONTRAS Ton 06-16-2023 CT ELBOW RIGHT WO IV CONTRAST Patient Name: [facility]ONZ[facility]Z [facility] 1935 [id number] Exam Date/Time: 06/16/2023 18:01 Procedure: CT ELBOW [...] right humerus, initial encounter Normal [facility] CT Elbow - right WO contrast on 06-16-2023 Impression: Extensively comminuted supracondylar humerus fracture. The fracture has multiple foci of articular extension to the lateral and central aspect of the condyle. Report Dictated on Electronically Signed By: Pastor Francisco MD Electronically Signed Date/Time: 06/16/2023 6:13 PM T [facility] Patient Name: EZRA [facility]ONZALEZ : 1935 [id number] Exam Date/Time: 06/16/2023 18:01 Procedure: CT ELBOW [...] Electronically Signed Date/Time: 06/16/2023 6:13 PM EDT [facility] Radiology Study observation (narrative) [facility] chalo Consulton 06-16-2023 Consult Ortho Consult Patient: Ezra Gonzalez Date of : 1935 Acct: [id number] PCP: No primary care provider on file. Date of Admission: 06/16/2023 Date of Service: Pt seen/examined on 06/16/2023 Chief Complaint: right distal humerus fracture History Of Present Illness: This is a 87 y.o. right hand dominant female who presents with a right distal humerus fracture after a fall at home. Patient originally presented to [facility] where she was splinted and transferred to [facility] ED for ortho eval. Patient denies numbness, tingling, or weakness. Denies pain elsewhere and denies head trauma or LOC. 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 Patient has prior ortho surgery history of bilateral TKAs and right shoulder surgery, left carpal tunnel release, all at [facility]. Denies alcohol, tobacco, drug use. Patient ambulation [...] (more content not included)... Normal [facility] Determination of erythrocyte mean corpuscular volume (MCV)Ordered By: Lali Pimentel on 06-16-2023 MCV (RBC) [Entitic vol] 90.3 fL 81-99 [facility] ED Provider Noteon ED Provider Note Emergency Department Encounter [facility] EMERGENCY DEPT Patient: Ezra Gonzalez [...] for clarification.) Sae Conde MD Acute Care [facility] Sae Conde MD 06/16/23 1626 [facility] ED Provider Note EMERGENCY DEPARTMENT ENCOUNTER [...] injury anywhere else. Patient was evaluated at [facility] emergency department prior to arrival and was noted to have a distal humerus fracture. Patient was transferred to [facility] ED for orthopedic consultation. Patient [...] (more content not included)... Normal [facility] Erythrocyte distribution wid th ratioOrdered By: Lali Pimentel on 06-16-2023 Erythrocyte distribution width (RBC) [Ratio] 13.3 % 11.6-14.6 [facility] Erythrocyte distribution wid th standard deviationOrdered By: Lali Pimentel on 06-16-2023 Erythrocyte distribution width (RBC) [Entitic vol] 43.9 fL 35.1-43.9 [facility] Hematocrit Auto (Bld) [Volum e fraction]Ordered By: Lali Pimentel on 06-16-2023 Hematocrit (Bld) [Volume fraction] 42.6 % 37-47 [facility] Immature granulocytes/100 WB C Auto (Bld)Ordered By: Lali Pimentel on 06-16-2023 Immature granulocytes/100 WBC (Bld) 0.500 % 0.0-0.9 [facility] Comment on above: IG% - Immature Granu locytes (promyelocytes, myelocytes and metamyelocytes) > 1% indicates that a LEFT SHIFT is Present. Laboratory - Blood bankon ABO group Nom (Bld) A [facility] D Ag Ql (RBC) Positive [facility] Laboratory - Chemistry and C hemistry - challengeOrdered By: Lali Pimentel on 06-16-2023 CO2 [Moles/Vol] 31.0 mmol/L 21.0-32.0 [facility] Urea nitrogen/Creatinine [Mass ratio] 20.9 mg/mg 10-20 [facility] Laboratory - Coagulationon 0 06-16-2023 PT Coag (Bld) [Time] 22.3 s High 9.0 - 1 2.0 s [facility] Laboratory - CoagulationOrde red By: Lali Pimentel on 06-16-2023 INR Coag (Bld) [Relative time] 2.2 {INR} [facility] PT Coag (PPP) [Time] 24.3 s 11.7-14.9 [facility] Laboratory - Hematology and Cell countsOrdered By: Lali Pimentel on 06-16-2023 MCH (RBC) [Entitic mass] 28.8 pg 27.0-32.0 [facility] MCHC (RBC) [Mass/Vol] 31.9 g/dL 32-36 [facility] Nucleated RBC/100 WBC (Bld) [Ratio] 0 % 0-5 [facility] Platelet mean volume (Bld) [Entitic vol] 9.9 fL 6.2-12.0 [facility] Platelets (Bld) [#/Vol] 414 10*3/uL 150-450 [facility] No Panel Informationon 06-15 [facility] No Panel InformationOrdered By: Lali Pimentel on 06-16-2023 Estimated Creatinine Clearance Calc 35.56 ml/min [facility] Estimated GFR (MDRD) Amer 57 mL/min >60 [facility] Comment on above: GFR Calc Estimated GFR (MDRD) Non-Af Amer 47 mL/min >60 [facility] Comment on above: Non- GFR Calc PROTHROMBIN TIMEon INR Coag (PPP) [Relative time] 2.2 {INR} High 0.9-1.1 [facility] Comment on above: Result Comment: Reji [...] Myocardial Infarction Performed By: #### L [id number] ####Bias Cutting Machine Operator Vertical: ALEXANDRA BUSTAMANTE ([id number])[address] PT Coag (PPP) [Time] 22.3 s High 9.0-12.0 [facility] Comment on above: Performed By: #### Akanksha [id number] ####Bias Cutting Machine Operator Vertical: ALEXANDRA BUSTAMANTE ([id number])[address] PT Coag (Bld) [Time]on 06-15 INR Coag (PPP) [Relative time] 2.2 {INR} High 0.9 - 1.1 [facility] Comment on above: Recommended Anticoag ulant [...] 06-16-2023 RBC (Bld) [#/Vol] 4.72 10*6/uL 4.2-5.4 [facility] Serum or plasma calcium viktoria urement (mass/volume)Ordered By: Lali Pimentel on 06-16-2023 Calcium [Mass/Vol] 8.8 mg/dL 8.5-10.1 [facility] Serum or plasma creatinine m easurement (mass/volume)Ordered By: Lali Pimentel on 06-16-2023 Creatinine [Mass/Vol] 1.15 mg/dL 0.55-1.02 [facility] Comment on above: The validity of the calculated GFR & GFRAA in patients over 70 years has not been determined. Clinical correlation is essential. Serum or plasma urea nitroge n measurement (mass/volume)Ordered By: Lali Pimentel on 06-16-2023 Urea nitrogen [Mass/Vol] 24 mg/dL - [facility] Thin prep Papanicolaou smear with manual screeningOrdered By: Lali Pimentel on 06-16-2023 Thin prep Papanicolaou smear with manual screening 5 5- [facility] XR Elbow - right 2 Viewson 0 06-16-2023 Patient Name: EZRA GONZALEZ : 1935 [facility]#: [id number] Exam Date/Time: 06/16/2023 15:20 Procedure: XR ELBOW [...] 06/16/2023 [facility] Name: [facility] 1935 [id number] Exam Date/Time: 06/16/2023 15:20 Procedure: XR ELBOW [...] Electronically Signed Date/Time: 06/16/2023 3:38 PM T [facility] Radiology Study observation (narrative) [facility] alth XR Elbow - right 2 ViewsOrde red By: Sae Dudley on 06-16-2023 [facility] Work Phone: XR Elbow - right [...] to the medial epicondyle - seen at [place] cannot see imaging Examination: Right elbow Clinical Indication: Pain Comparison: None [facility] Pastor Francisco MD - 06/16/2023 Patient Name: EZRA GONZALEZ : 1935 Exam Date/Time: 06/16/2023 14:30 Procedure: XR ELBOW 3+ VIEWS RIGHT Ordering Provider: TENORIO KASSIDY Reason For Exam: comminuted slightly displaced supracondylar fx of distal humerus with extension to the medial epicondyle - seen at [place] cannot see imaging Examination: Right elbow Clinical [...] Date/Time: 06/16/2023 3:24 PM EDT [facility] Radiology Study observation (narrative) [facility] alth XR Elbow - right 3 ViewsOrde red By: Pastor Francisco on 06-16-2023 [facility] Work Phone: XR Shoulder - right [...] 06/16/2023 [facility] Name: [facility] : 1935 [id number] Exam Date/Time: 06/16/2023 15:20 Procedure: XR SHOULDER [...] Date/Time: 06/16/2023 3:30 PM EDT [facility] Radiology Study observation (narrative) [facility] XR Shoulder - right 2 ViewsO rdered By: Reji Lemus on 06-16-2023 [facility] Work Phone: Capillary blood internationa l normalized ratio (INR)Ordered By: Alexandra Hagen on 05-30-2023 INR Coag (BldC) [Relative time] 1.7 [facility] Comment on above: Critical Value > 4.0 Whole blood prothrombin time Ordered By: Alexandra Hagen on 05-30-2023 PT Coag (Bld) [Time] 18.0 s 11.7-14.9 [facility] Absolute lymphocyte countOrd ered By: Alexandra Hagen on 05-12-2023 Lymphocytes Auto (Unsp spec) [#/Vol] 1.60 10*3/uL 0.83-4.51 [facility] Automated lymphocyte count a s percentage of total leukocytesOrdered By: Alexandra Hagen on 05-12-2023 Lymphocytes/100 WBC Auto (Unsp spec) 20.2 % 19-41 [facility] Basophil percentageOrdered B y: Alexandra Hagen on 05-12-2023 Basophils/100 WBC (Bld) 0.5 % 0-1 [facility] Chloride [Moles/Vol] 109 mmol/L 98-107 [facility] Eosinophils/100 WBC (Bld) 3.7 % 0-5 [facility] Glucose [Mass/Vol] 206 mg/dL 74-106 [facility] Comment on above: Glucose result great er than or equal to 200 mg/dLsuggests DIABETES MELLITUS per A.D.A. criteria. Hemoglobin (Bld) [Mass/Vol] 13.1 g/dL 12.0-15.0 [facility] Monocytes/100 WBC (Bld) 7.8 % 0-10 [facility] Neutrophils (Bld) [#/Vol] 5.3 10*3/uL 2.0-7.7 [facility] Neutrophils/100 WBC (Bld) 67.5 % 47-70 [facility] Potassium [Moles/Vol] 4.6 mmol/L 3.5-5.1 [facility] Comment on above: Moderate Hemolysis, Result may be falsely increased. Sodium [Moles/Vol] 140 mmol/L 136-145 [facility] WBC (Bld) [#/Vol] 7.9 10*3/uL 4.4-11.0 [facility] Determination of erythrocyte mean corpuscular volume (MCV)Ordered By: Alexandra Hagen on 05-12-2023 MCV (RBC) [Entitic vol] 93.1 fL 81-99 [facility] Erythrocyte distribution wid th ratioOrdered By: Alexandra Hagen on 05-12-2023 Erythrocyte distribution width (RBC) [Ratio] 13.5 % 11.6-14.6 [facility] Erythrocyte distribution wid th standard deviationOrdered By: Alexandra Hagen on 05-12-2023 Erythrocyte distribution width (RBC) [Entitic vol] 46.0 fL 35.1-43.9 [facility] Hematocrit Auto (Bld) [Volum e fraction]Ordered By: Alexandra Hagen on 05-12-2023 Hematocrit (Bld) [Volume fraction] 41.8 % 37-47 [facility] Immature granulocytes/100 WB C Auto (Bld)Ordered By: Alexandra Hagen on 05-12-2023 Immature granulocytes/100 WBC (Bld) 0.300 % 0.0-0.9 [facility] Comment on above: IG% - Immature Granu locytes (promyelocytes, myelocytes and metamyelocytes) > 1% indicates that a LEFT SHIFT is Present. Laboratory - Chemistry and C hemistry - challengeOrdered By: Alexandra Hagen on 05-12-2023 CO2 [Moles/Vol] 25.0 mmol/L 21.0-32.0 [facility] Urea nitrogen/Creatinine [Mass ratio] 13.7 mg/mg 10-20 [facility] Laboratory - Hematology and Cell countsOrdered By: Alexandra Hagen on 05-12-2023 MCH (RBC) [Entitic mass] 29.2 pg 27.0-32.0 [facility] MCHC (RBC) [Mass/Vol] 31.3 g/dL 32-36 [facility] Nucleated RBC/100 WBC (Bld) [Ratio] 0 % 0-5 [facility] Platelet mean volume (Bld) [Entitic vol] 10.6 fL 6.2-12.0 [facility] Platelets (Bld) [#/Vol] 272 10*3/uL 150-450 [facility] No Panel InformationOrdered By: Alexandra Hagen on 05-12-2023 Estimated GFR (MDRD) Amer 53 mL/min >60 [facility] Comment on above: GFR Calc Estimated GFR (MDRD) Non-Af Amer 43 mL/min >60 [facility] Comment on above: Non- GFR Calc RBC Auto (Bld) [#/Vol]Ordere d By: Alexandra Hagen on 05-12-2023 RBC (Bld) [#/Vol] 4.49 10*6/uL 4.2-5.4 [facility] Serum or plasma calcium viktoria urement (mass/volume)Ordered By: Alexandra Hagen on 05-12-2023 Calcium [Mass/Vol] 8.5 mg/dL 8.5-10.1 [facility] Serum or plasma creatinine m easurement (mass/volume)Ordered By: Alexandra Hagen on 05-12-2023 Creatinine [Mass/Vol] 1.24 mg/dL 0.55-1.02 [facility] Comment on above: The validity of the calculated GFR & GFRAA in patients over 70 years has not been determined. Clinical correlation is essential. Serum or plasma urea nitroge n measurement (mass/volume)Ordered By: Alexandra Hagen on 05-12-2023 Urea nitrogen [Mass/Vol] 17 mg/dL 7-18 [facility] Thin prep Papanicolaou smear with manual screeningOrdered By: Alexandra Hagen on 05-12-2023 Thin prep Papanicolaou smear with manual screening 6 5-15 [facility] Whole blood hemoglobin A1c/t otal hemoglobin ratio (mass fraction)Ordered By: Alexandra Hagen on 05-12-2023 HbA1c (Bld) [Mass fraction] 6.8 % 3.8-5.6 [facility] Comment on above: Normal < 5.7 % Predi abetic 5.7 - 6.4 % Diabetic >or= 6.5 % Please note range changes. Capillary blood internationa l normalized ratio (INR)Ordered By: Alexandra Hagen on 05-01-2023 INR Coag (BldC) [Relative time] 2.0 [facility] Comment on above: Critical Value > 4.0 Whole blood prothrombin time Ordered By: Alexandra Hagen on 05-01-2023 PT Coag (Bld) [Time] 21.0 s 11.7-14.9 [facility] International normalized rat io (INR) calculationOrdered By: Alexandra Hagen on 04-17-2023 INR Coag (PPP) [Relative time] 1.8 {INR} [facility] Laboratory - CoagulationOrde red By: Alexandra Hagen on 04-17-2023 PT Coag (PPP) [Time] 21.0 s 11.7-14.9 [facility] Laboratory - CoagulationOrde red By: Alexandra Hagen on 03-20-2023 INR Coag (Bld) [Relative time] 2.4 {INR} [facility] Comment on above: Critical Value > 4.0 Whole blood prothrombin time Ordered By: Alexandra Hagen on 03-20-2023 PT Coag (Bld) [Time] 25.7 s 11.7-14.9 [facility] Basophil percentageOrdered B y: Alexandra Hagen on 02-21-2023 Bilirubin [Mass/Vol] 0.60 mg/dL 0.20-1.00 [facility] Comment on above: For patients on eltr ombopag therapy, use of Dimension [place] TBIL is not recommended. Chloride [Moles/Vol] 107 mmol/L 98-107 [facility] Cholesterol [Mass/Vol] 127 mg/dL <200 [facility] Comment on above: <200 mg/dL Desirable 200-240 mg/dL Borderline >240 mg/dL High Risk Glucose [Mass/Vol] 134 mg/dL 74-106 [facility] Comment on above: Fasting Glucose resu lt greater than or equal to 126 mg/dL suggests DIABETES MELLITUS per A.D.A. criteria. Potassium [Moles/Vol] 4.2 mmol/L 3.5-5.1 [facility] Protein [Mass/Vol] 6.2 g/dL 6.4-8.2 [facility] Sodium [Moles/Vol] 138 mmol/L 136-145 [facility] Triglyceride [Mass/Vol] 102 mg/dL <199 [facility] Comment on above: The drugs N-Acetylcy steine and Metamizole may falsely depress this assay.Serum Triglycerides Reference Interval Normal <150 mg/dL Borderline high 150 - 199 mg/dL High 200 - 499 mg/dL Very High > or = 500 mg/dL WBC (Bld) [#/Vol] 7.7 10*3/uL 4.4-11.0 [facility] Blood erythrocytes count (nu mber/volume)Ordered By: Alexandra Hagen on 02-21-2023 RBC (Bld) [#/Vol] 4.19 10*6/uL 4.2-5.4 [facility] Blood hemoglobin measurement (mass/volume)Ordered By: Alexandra Hagen on 02-21-2023 Hemoglobin (Bld) [Mass/Vol] 12.5 g/dL 12.0-15.0 [facility] Blood platelet mean volumeOr dered By: Alexandra Hagen on 02-21-2023 Platelet mean volume (Bld) [Entitic vol] 10.8 fL 6.2-12.0 [facility] Determination of erythrocyte mean corpuscular volume (MCV)Ordered By: Alexandra Hagen on 02-21-2023 MCV (RBC) [Entitic vol] 91.2 fL 81-99 [facility] Hematocrit Auto (Bld) [Volum e fraction]Ordered By: Alexandra Hagen on 02-21-2023 Hematocrit (Bld) [Volume fraction] 38.2 % 37-47 [facility] INR in Blood by Coagulation assayOrdered By: Alexandra Hagen on 02-21-2023 INR Coag (Bld) [Relative time] 2.3 {INR} [facility] Laboratory - Chemistry and C hemistry - challengeOrdered By: Alexandra Hagen on 02-21-2023 ALP [Catalytic activity/Vol] 84 U/L 45-117 [facility] ALT [Catalytic activity/Vol] 11 U/L 13-56 [facility] CO2 [Moles/Vol] 27.0 mmol/L 21.0-32.0 [facility] Globulin (S) [Mass/Vol] 3.3 g/dL 2.2-4.2 [facility] Urea nitrogen/Creatinine [Mass ratio] 14.0 mg/mg 10-20 [facility] Laboratory - CoagulationOrde red By: Alexandra Hagen on 02-21-2023 PT Coag (PPP) [Time] 25.3 s 11.7-14.9 [facility] Laboratory - Hematology and Cell countsOrdered By: Alexandra Hagen on 02-21-2023 Erythrocyte distribution width (RBC) [Entitic vol] 44.8 fL 35.1-43.9 [facility] Erythrocyte distribution width (RBC) [Ratio] 13.4 % 11.6-14.6 [facility] MCH (RBC) [Entitic mass] 29.8 pg 27.0-32.0 [facility] MCHC Auto (RBC) [Mass/Vol]Or dered By: Alexandra Hagen on 02-21-2023 MCHC (RBC) [Mass/Vol] 32.7 g/dL 32-36 [facility] No Panel InformationOrdered By: Alexandra Hagen on 02-21-2023 Estimated GFR (MDRD) Amer 68 mL/min >60 [facility] Comment on above: GFR Calc Estimated GFR (MDRD) Non-Af Amer 56 mL/min >60 [facility] Comment on above: Non- GFR Calc Platelets bldOrdered By: Alexandra Hagen on 02-21-2023 Platelets (Bld) [#/Vol] 297 10*3/uL 150-450 [facility] Serum or plasma albumin viktoria urement (mass/volume)Ordered By: Alexandra Hagen on 02-21-2023 Albumin [Mass/Vol] 2.9 g/dL 3.2-5.0 [facility] Serum or plasma albumin/glob ulin mass ratioOrdered By: Alexandra Hagen on 02-21-2023 Albumin/Globulin [Mass ratio] 0.9 {ratio} 0.9-2.4 [facility] Serum or plasma calcium viktoria urement (mass/volume)Ordered By: Alexandra Hagen on 02-21-2023 Calcium [Mass/Vol] 8.4 mg/dL 8.5-10.1 [facility] Serum or plasma cholesterol in HDL measurement (mass/volume)Ordered By: Alexandra Hagen on 02-21-2023 Cholesterol in HDL [Mass/Vol] 50 mg/dL >40 [facility] Comment on above: The drugs N-Acetylcy steine and Metamizole may falsely depress this assay. Reference Range HDL <40 mg/dL Low HDL Cholesterol HDL >or= 60 mg/dL High HDL Cholesterol Serum or plasma cholesterol in VLDL measurement (mass/volume)Ordered By: Alexandra Hagen on 02-21-2023 Cholesterol in VLDL [Mass/Vol] 20 mg/dL 5-40 [facility] Serum or plasma creatinine m easurement (mass/volume)Ordered By: Alexandra Hagen on 02-21-2023 Creatinine [Mass/Vol] 1.00 mg/dL 0.55-1.02 [facility] Comment on above: The validity of the calculated GFR & GFRAA in patients over 70 years has not been determined. Clinical correlation is essential. Serum or plasma low density lipoprotein (LDL) cholesterol measurement (mass/volume)Ordered By: Alexandra Hagen on 02-21-2023 Cholesterol in LDL [Mass/Vol] 57 mg/dL 0-130 [facility] Serum or plasma urea nitroge n measurement (mass/volume)Ordered By: Alexandra Hagen on 02-21-2023 Urea nitrogen [Mass/Vol] 14 mg/dL 7-18 [facility] Thin prep Papanicolaou smear with manual screeningOrdered By: Alexandra Hagen on 02-21-2023 Thin prep Papanicolaou smear with manual screening 16 U/L 15-37 [facility] Thin prep Papanicolaou smear with manual screening 4 5-15 [facility] Albumin Elph [Mass/Vol]Order ed By: Anant Juarez on 01-20-2023 Albumin [Mass/Vol] 3.4 g/dL 2.9-4.4 [facility] Basophil percentageOrdered B y: Anant Juarez on 01-20-2023 Basophil percentage Comment . [facility] Comment on above: No monoclonality det ected.Performed at: [employer] - [address] [id number] Director: Master Vee PhD, Phone: [phone] Interpretation of serum or p lasma protein pattern by immunofixation (narrative resultOrdered By: Anant Juarez on 01-20-2023 Protein Fractions Immunofixation Manuel [Interp] See comment [facility] Comment on above: Result: Not Observed No Panel InformationOrdered By: Anant Juarez on 01-20-2023 Addendum Document Comment . [facility] Comment on above: Protein electrophore sis scan will follow via computer,mail, or court supervisor delivery. Serum [id number] measu rement by electrophoresisOrdered By: Anant Juarez on 01-20-2023 Alpha 1 globulin Elph [Mass/Vol] 0.3 g/dL 0.0-0.4 [facility] Alpha 1 globulin Elph [Mass/Vol] 0.9 g/dL 0.4-1.0 [facility] Serum globulin measurement ( mass/volume)Ordered By: Anant Juarez on 01-20-2023 Globulin (S) [Mass/Vol] 3.0 g/dL 2.2-3.9 [facility] Serum or plasma IgA measurem ent (mass/volume)Ordered By: Anant Juarez on 01-20-2023 IgA [Mass/Vol] 158 mg/dL 64-422 [facility] Serum or plasma IgG measurem ent (mass/volume)Ordered By: Anant Juarez on 01-20-2023 IgG [Mass/Vol] 847 mg/dL 586-1602 [facility] Serum or plasma IgM measurem ent (mass/volume)Ordered By: Anant Juarez on 01-20-2023 IgM [Mass/Vol] 48 mg/dL 26-217 [facility] Serum or plasma beta globuli n measurement by electrophoresis (mass/volume)Ordered By: Anant Juarez 01-20-2023 Beta globulin Elph [Mass/Vol] 1.0 g/dL 0.7-1.3 [facility] Serum or plasma gamma globul in measurement by electrophoresis (mass/volume)Ordered By: Anant Juarez on 01-20-2023 Gamma globulin Elph [Mass/Vol] 0.7 g/dL 0.4-1.8 [facility] Serum or plasma immunoelectr ophoresis interpretation (nominal result)Ordered By: Anant Juarez on 01-20-2023 Interpretation IEP [Interp] Comment . [facility] Comment on above: No monoclonality det ected. Thin prep Papanicolaou smear with manual screeningOrdered By: Anant Juarez on 01-20-2023 Thin prep Papanicolaou smear with manual screening 1.2 0.7-1.7 [facility] Total protein bloodOrdered B y: Anant Juarez on 01-20-2023 Protein [Mass/Vol] 6.4 g/dL 6.0-8.5 [facility] Laboratory - CoagulationOrde red By: Alexandra Hagen on 01-16-2023 INR Coag (Bld) [Relative time] 2.2 {INR} [facility] Comment on above: Critical Value > 4.0 Whole blood prothrombin time Ordered By: Alexandra Hagen on 01-16-2023 PT Coag (Bld) [Time] 24.2 s 11.7-14.9 [facility] Absolute lymphocyte countOrd ered By: Lynn Horn on 12-28-2022 Lymphocytes Auto (Unsp spec) [#/Vol] 1.57 10*3/uL 0.83-4.51 [facility] Basophil percentageOrdered B y: Lynn Horn on 12-28-2022 Basophils/100 WBC (Bld) 0.6 % 0-1 [facility] Chloride [Moles/Vol] 108 mmol/L 98-107 [facility] Eosinophils/100 WBC (Bld) 3.0 % 0-5 [facility] Glucose [Mass/Vol] 117 mg/dL 74-106 [facility] Comment on above: Fasting Glucose resu lt from 100 to 125 mg/dL suggests IMPAIRED HOMEOSTASIS per A.D.A. criteria. Neutrophils (Bld) [#/Vol] 5.3 10*3/uL 2.0-7.7 [facility] Neutrophils/100 WBC (Bld) 66.8 % 47-70 [facility] Potassium [Moles/Vol] 3.9 mmol/L 3.5-5.1 [facility] Sodium [Moles/Vol] 138 mmol/L 136-145 [facility] WBC (Bld) [#/Vol] 7.9 10*3/uL 4.4-11.0 [facility] Blood erythrocytes count (nu mber/volume)Ordered By: Lynn Horn on 12-28-2022 RBC (Bld) [#/Vol] 4.32 10*6/uL 4.2-5.4 [facility] Blood hemoglobin measurement (mass/volume)Ordered By: Lynn Horn on 12-28-2022 Hemoglobin (Bld) [Mass/Vol] 12.8 g/dL 12.0-15.0 [facility] Blood lymphocytes/100 leukoc ytesOrdered By: Lynn Horn on 12-28-2022 Lymphocytes/100 WBC (Bld) 19.8 % 19-41 [facility] Blood monocytes/100 leukocyt esOrdered By: Lynn Horn on 12-28-2022 Monocytes/100 WBC (Bld) 9.5 % 0-10 [facility] Blood platelet mean volumeOr dered By: Lynn Horn on 12-28-2022 Platelet mean volume (Bld) [Entitic vol] 10.6 fL 6.2-12.0 [facility] Determination of erythrocyte mean corpuscular volume (MCV)Ordered By: Lynn Horn on 12-28-2022 MCV (RBC) [Entitic vol] 91.0 fL 81-99 [facility] Hematocrit Auto (Bld) [Volum e fraction]Ordered By: Lynn Horn on 12-28-2022 Hematocrit (Bld) [Volume fraction] 39.3 % 37-47 [facility] INR in Blood by Coagulation assayOrdered By: Lynn Horn on 12-28-2022 INR Coag (Bld) [Relative time] 2.1 {INR} [facility] Laboratory - Chemistry and C hemistry - challengeOrdered By: Lynn Horn on 12-28-2022 CO2 [Moles/Vol] 27.0 mmol/L 21.0-32.0 [facility] Urea nitrogen/Creatinine [Mass ratio] 15.7 mg/mg 10-20 [facility] Laboratory - CoagulationOrde red By: Lynn Horn on 12-28-2022 PT Coag (PPP) [Time] 23.8 s 11.7-14.9 [facility] Laboratory - Hematology and Cell countsOrdered By: Lynn Horn on 12-28-2022 Erythrocyte distribution width (RBC) [Entitic vol] 43.0 fL 35.1-43.9 [facility] Erythrocyte distribution width (RBC) [Ratio] 12.9 % 11.6-14.6 [facility] Immature granulocytes/100 WBC (Bld) 0.300 % 0.0-0.9 [facility] Comment on above: IG% - Immature Granu locytes (promyelocytes, myelocytes and metamyelocytes) > 1% indicates that a LEFT SHIFT is Present. MCH (RBC) [Entitic mass] 29.6 pg 27.0-32.0 [facility] Nucleated RBC/100 WBC (Bld) [Ratio] 0 % 0-5 [facility] MCHC Auto (RBC) [Mass/Vol]Or dered By: Lynn Horn on 12-28-2022 MCHC (RBC) [Mass/Vol] 32.6 g/dL 32-36 [facility] No Panel InformationOrdered By: Lynn Horn on 12-28-2022 Estimated Creatinine Clearance Calc 36.84 ml/min [facility] Estimated GFR (MDRD) Amer 77 mL/min >60 [facility] Comment on above: GFR Calc Estimated GFR (MDRD) Non-Af Amer 64 mL/min >60 [facility] Comment on above: Non- GFR Calc Platelets bldOrdered By: Lois Horn on 12-28-2022 Platelets (Bld) [#/Vol] 272 10*3/uL 150-450 [facility] Serum or plasma calcium viktoria urement (mass/volume)Ordered By: Lynn Horn on 12-28-2022 Calcium [Mass/Vol] 8.3 mg/dL 8.5-10.1 [facility] Serum or plasma creatinine m easurement (mass/volume)Ordered By: Lynn Horn on 12-28-2022 Creatinine [Mass/Vol] 0.89 mg/dL 0.55-1.02 [facility] Comment on above: The validity of the calculated GFR & GFRAA in patients over 70 years has not been determined. Clinical correlation is essential. Serum or plasma urea nitroge n measurement (mass/volume)Ordered By: Lynn Horn on 12-28-2022 Urea nitrogen [Mass/Vol] 14 mg/dL 7-18 [facility] Thin prep Papanicolaou smear with manual screeningOrdered By: Lynn Horn on 12-28-2022 Thin prep Papanicolaou smear with manual screening 3 5-15 [facility] Laboratory - CoagulationOrde red By: Lali Pimentel on 12-27-2022 aPTT Coag (Bld) [Time] 48.2 s 24.1-36.2 [facility] No Panel InformationOrdered By: Lali Pimentel on 12-27-2022 Troponin I High Sensitivity 10 pg/mL 3.0-54.0 [facility] Comment on above: Please Note: New Evon t Units and Gender Specific Reference Ranges. For more information see Policy Stat Procedure [place] High Sensitivity Troponin (TNIH) and attachments. Laboratory - CoagulationOrde red By: Alexandra Hagen on 12-19-2022 INR Coag (Bld) [Relative time] 2.8 {INR} [facility] Comment on above: Critical Value > 4.0 Whole blood prothrombin time Ordered By: Alexandra Hagen on 12-19-2022 PT Coag (Bld) [Time] 29.7 s 11.7-14.9 [facility] Absolute lymphocyte countOrd ered By: Alexandra Hagen on 12-09-2022 Lymphocytes Auto (Unsp spec) [#/Vol] 1.65 10*3/uL 0.83-4.51 [facility] Basophil percentageOrdered B y: Alexandra Hagen on 12-09-2022 Basophils/100 WBC (Bld) 0.4 % 0-1 [facility] Chloride [Moles/Vol] 107 mmol/L 98-107 [facility] Eosinophils/100 WBC (Bld) 3.6 % 0-5 [facility] Glucose [Mass/Vol] 125 mg/dL 74-106 [facility] Comment on above: Fasting Glucose resu lt from 100 to 125 mg/dL suggests IMPAIRED HOMEOSTASIS per A.D.A. criteria. Neutrophils (Bld) [#/Vol] 4.3 10*3/uL 2.0-7.7 [facility] Neutrophils/100 WBC (Bld) 61.6 % 47-70 [facility] Potassium [Moles/Vol] 4.8 mmol/L 3.5-5.1 [facility] Sodium [Moles/Vol] 138 mmol/L 136-145 [facility] WBC (Bld) [#/Vol] 7.0 10*3/uL 4.4-11.0 [facility] Blood erythrocytes count (nu mber/volume)Ordered By: Alexandra Hagen on 12-09-2022 RBC (Bld) [#/Vol] 4.30 10*6/uL 4.2-5.4 [facility] Blood hemoglobin measurement (mass/volume)Ordered By: Alexandra Hagen on 12-09-2022 Hemoglobin (Bld) [Mass/Vol] 13.1 g/dL 12.0-15.0 [facility] Blood lymphocytes/100 leukoc ytesOrdered By: Alexandra Hagen on 12-09-2022 Lymphocytes/100 WBC (Bld) 23.7 % 19-41 [facility] Blood monocytes/100 leukocyt esOrdered By: Alexandra Hagen on 12-09-2022 Monocytes/100 WBC (Bld) 10.4 % 0-10 [facility] Blood platelet mean volumeOr dered By: Alexandra Hagen on 12-09-2022 Platelet mean volume (Bld) [Entitic vol] 10.7 fL 6.2-12.0 [facility] Determination of erythrocyte mean corpuscular volume (MCV)Ordered By: Alexandra Hagen on 12-09-2022 MCV (RBC) [Entitic vol] 92.3 fL 81-99 [facility] Hematocrit Auto (Bld) [Volum e fraction]Ordered By: Alexandra Hagen on 12-09-2022 Hematocrit (Bld) [Volume fraction] 39.7 % 37-47 [facility] Laboratory - Chemistry and C hemistry - challengeOrdered By: Alexandra Hagen on 12-09-2022 CO2 [Moles/Vol] 26.0 mmol/L 21.0-32.0 [facility] Urea nitrogen/Creatinine [Mass ratio] 14.4 mg/mg 10-20 [facility] Laboratory - Hematology and Cell countsOrdered By: Alexandra Hagen on 12-09-2022 Erythrocyte distribution width (RBC) [Entitic vol] 44.0 fL 35.1-43.9 [facility] Erythrocyte distribution width (RBC) [Ratio] 13.1 % 11.6-14.6 [facility] Immature granulocytes/100 WBC (Bld) 0.300 % 0.0-0.9 [facility] Comment on above: IG% - Immature Granu locytes (promyelocytes, myelocytes and metamyelocytes) > 1% indicates that a LEFT SHIFT is Present. MCH (RBC) [Entitic mass] 30.5 pg 27.0-32.0 [facility] Nucleated RBC/100 WBC (Bld) [Ratio] 0 % 0-5 [facility] MCHC Auto (RBC) [Mass/Vol]Or dered By: Alexandra Hagen on 12-09-2022 MCHC (RBC) [Mass/Vol] 33.0 g/dL 32-36 [facility] No Panel InformationOrdered By: Alexandra Hagen on 12-09-2022 Estimated GFR (MDRD) Amer 60 mL/min >60 [facility] Comment on above: GFR Calc Estimated GFR (MDRD) Non-Af Amer 49 mL/min >60 [facility] Comment on above: Non- GFR Calc Platelets bldOrdered By: Alexandra Hagen on 12-09-2022 Platelets (Bld) [#/Vol] 293 10*3/uL 150-450 [facility] Serum or plasma calcium viktoria urement (mass/volume)Ordered By: Alexandra Hagen on 12-09-2022 Calcium [Mass/Vol] 8.7 mg/dL 8.5-10.1 [facility] Serum or plasma creatinine m easurement (mass/volume)Ordered By: Alexandra Hagen on 12-09-2022 Creatinine [Mass/Vol] 1.11 mg/dL 0.55-1.02 [facility] Comment on above: The validity of the calculated GFR & GFRAA in patients over 70 years has not been determined. Clinical correlation is essential. Serum or plasma urea nitroge n measurement (mass/volume)Ordered By: Alexandra Hagen on 12-09-2022 Urea nitrogen [Mass/Vol] 16 mg/dL 7-18 [facility] Thin prep Papanicolaou smear with manual screeningOrdered By: Alexandra Hagen on 12-09-2022 Thin prep Papanicolaou smear with manual screening 5 5-15 [facility] Whole blood hemoglobin A1c/t otal hemoglobin ratio (mass fraction)Ordered By: Alexandra Hagen on 12-09-2022 HbA1c (Bld) [Mass fraction] 6.7 % 3.8-5.6 [facility] Comment on above: Normal < 5.7 % Predi abetic 5.7 - 6.4 % Diabetic >or= 6.5 % Please note range changes. Basophil percentageOrdered B y: Alexandra Hagen on 11-20-2022 Bilirubin [Mass/Vol] 0.50 mg/dL 0.20-1.00 [facility] Comment on above: For patients on eltr ombopag therapy, use of Dimension [place] TBIL is not recommended. Chloride [Moles/Vol] 105 mmol/L 98-107 [facility] Cholesterol [Mass/Vol] 167 mg/dL <200 [facility] Comment on above: <200 mg/dL Desirable 200-240 mg/dL Borderline >240 mg/dL High Risk Glucose [Mass/Vol] 153 mg/dL 74-106 [facility] Comment on above: Fasting Glucose resu lt greater than or equal to 126 mg/dL suggests DIABETES MELLITUS per A.D.A. criteria. Potassium [Moles/Vol] 4.2 mmol/L 3.5-5.1 [facility] Protein [Mass/Vol] 6.7 g/dL 6.4-8.2 [facility] Sodium [Moles/Vol] 138 mmol/L 136-145 [facility] Triglyceride [Mass/Vol] 120 mg/dL <199 [facility] Comment on above: The drugs N-Acetylcy steine and Metamizole may falsely depress this assay.Serum Triglycerides Reference Interval Normal <150 mg/dL Borderline high 150 - 199 mg/dL High 200 - 499 mg/dL Very High > or = 500 mg/dL WBC (Bld) [#/Vol] 7.4 10*3/uL 4.4-11.0 [facility] Blood erythrocytes count (nu mber/volume)Ordered By: Alexandra Hagen on 11-20-2022 RBC (Bld) [#/Vol] 4.37 10*6/uL 4.2-5.4 [facility] Blood hemoglobin measurement (mass/volume)Ordered By: Alexandra Hagen on 11-20-2022 Hemoglobin (Bld) [Mass/Vol] 13.1 g/dL 12.0-15.0 [facility] Blood platelet mean volumeOr dered By: Alexandra Hagen on 11-20-2022 Platelet mean volume (Bld) [Entitic vol] 10.8 fL 6.2-12.0 [facility] Determination of erythrocyte mean corpuscular volume (MCV)Ordered By: Alexandra Hagen on 11-20-2022 MCV (RBC) [Entitic vol] 91.5 fL 81-99 [facility] Hematocrit Auto (Bld) [Volum e fraction]Ordered By: Alexandra Hagen on 11-20-2022 Hematocrit (Bld) [Volume fraction] 40.0 % 37-47 [facility] INR in Blood by Coagulation assayOrdered By: Alexandra Hagen on 11-20-2022 INR Coag (Bld) [Relative time] 2.0 {INR} [facility] Laboratory - Chemistry and C hemistry - challengeOrdered By: Alexandra Hagen on 11-20-2022 ALP [Catalytic activity/Vol] 72 U/L 45-117 [facility] ALT [Catalytic activity/Vol] 13 U/L 13-56 [facility] CO2 [Moles/Vol] 30.0 mmol/L 21.0-32.0 [facility] Globulin (S) [Mass/Vol] 3.6 g/dL 2.2-4.2 [facility] Urea nitrogen/Creatinine [Mass ratio] 12.8 mg/mg 10-20 [facility] Laboratory - CoagulationOrde red By: Alexandra Hagen on 11-20-2022 PT Coag (PPP) [Time] 22.6 s 11.7-14.9 [facility] Laboratory - Hematology and Cell countsOrdered By: Alexandra Hagen on 11-20-2022 Erythrocyte distribution width (RBC) [Entitic vol] 43.4 fL 35.1-43.9 [facility] Erythrocyte distribution width (RBC) [Ratio] 12.9 % 11.6-14.6 [facility] MCH (RBC) [Entitic mass] 30.0 pg 27.0-32.0 [facility] MCHC Auto (RBC) [Mass/Vol]Or dered By: Alexandra Hagen on 11-20-2022 MCHC (RBC) [Mass/Vol] 32.8 g/dL 32-36 [facility] No Panel InformationOrdered By: Alexandra Hagen on 11-20-2022 Estimated GFR (MDRD) Amer 61 mL/min >60 [facility] Comment on above: GFR Calc Estimated GFR (MDRD) Non-Af Amer 50 mL/min >60 [facility] Comment on above: Non- GFR Calc Platelets bldOrdered By: Alexandra Hagen on 11-20-2022 Platelets (Bld) [#/Vol] 310 10*3/uL 150-450 [facility] Serum or plasma albumin viktoria urement (mass/volume)Ordered By: Alexandra Hagen on 11-20-2022 Albumin [Mass/Vol] 3.1 g/dL 3.2-5.0 [facility] Serum or plasma albumin/glob ulin mass ratioOrdered By: Alexandra Hagen on 11-20-2022 Albumin/Globulin [Mass ratio] 0.9 {ratio} 0.9-2.4 [facility] Serum or plasma calcium viktoria urement (mass/volume)Ordered By: Alexandra Hagen on 11-20-2022 Calcium [Mass/Vol] 8.6 mg/dL 8.5-10.1 [facility] Serum or plasma cholesterol in HDL measurement (mass/volume)Ordered By: Alexandra Hagen on 11-20-2022 Cholesterol in HDL [Mass/Vol] 55 mg/dL >40 [facility] Comment on above: The drugs N-Acetylcy steine and Metamizole may falsely depress this assay. Reference Range HDL <40 mg/dL Low HDL Cholesterol HDL >or= 60 mg/dL High HDL Cholesterol Serum or plasma cholesterol in VLDL measurement (mass/volume)Ordered By: Alexandra Hagen on 11-20-2022 Cholesterol in VLDL [Mass/Vol] 24 mg/dL 5-40 [facility] Serum or plasma creatinine m easurement (mass/volume)Ordered By: Alexandra Hagen on 11-20-2022 Creatinine [Mass/Vol] 1.09 mg/dL 0.55-1.02 [facility] Comment on above: The validity of the calculated GFR & GFRAA in patients over 70 years has not been determined. Clinical correlation is essential. Serum or plasma low density lipoprotein (LDL) cholesterol measurement (mass/volume)Ordered By: Alexandra Hagen on 11-20-2022 Cholesterol in LDL [Mass/Vol] 88 mg/dL 0-130 [facility] Serum or plasma urea nitroge n measurement (mass/volume)Ordered By: Alexandra Hagen on 11-20-2022 Urea nitrogen [Mass/Vol] 14 mg/dL 7-18 [facility] Thin prep Papanicolaou smear with manual screeningOrdered By: Alexandra Hagen on 11-20-2022 Thin prep Papanicolaou smear with manual screening 15 U/L 15-37 [facility] Thin prep Papanicolaou smear with manual screening 3 5-15 [facility] Absolute lymphocyte countOrd ered By: Mo Corea on 11-18-2022 Lymphocytes Auto (Unsp spec) [#/Vol] 1.95 10*3/uL 0.83-4.51 [facility] Basophil percentageOrdered B y: Mo Corea on 11-18-2022 Basophil percentage 0-5 SEEN /hpf 0-5 [facility] Basophils/100 WBC (Bld) 0.4 % 0-1 [facility] Bilirubin [Mass/Vol] 0.40 mg/dL 0.20-1.00 [facility] Comment on above: For patients on eltr ombopag therapy, use of Dimension [place] TBIL is not recommended. Chloride [Moles/Vol] 108 mmol/L 98-107 [facility] Eosinophils/100 WBC (Bld) 3.4 % 0-5 [facility] Glucose [Mass/Vol] 126 mg/dL 74-106 [facility] Comment on above: Fasting Glucose resu lt greater than or equal to 126 mg/dL suggests DIABETES MELLITUS per A.D.A. criteria. Neutrophils (Bld) [#/Vol] 4.4 10*3/uL 2.0-7.7 [facility] Neutrophils/100 WBC (Bld) 59.9 % 47-70 [facility] Potassium [Moles/Vol] 3.9 mmol/L 3.5-5.1 [facility] Protein [Mass/Vol] 6.9 g/dL 6.4-8.2 [facility] Sodium [Moles/Vol] 140 mmol/L 136-145 [facility] WBC (Bld) [#/Vol] 7.3 10*3/uL 4.4-11.0 [facility] Bilirubin Test strip Ql (U)O rdered By: Mo Corea on 11-18-2022 Bilirubin Ql (U) Negative Negative [facility] Blood erythrocytes count (nu mber/volume)Ordered By: Mo Corea on 11-18-2022 RBC (Bld) [#/Vol] 4.63 10*6/uL 4.2-5.4 [facility] Blood hemoglobin measurement (mass/volume)Ordered By: Mo Corea on 11-18-2022 Hemoglobin (Bld) [Mass/Vol] 13.9 g/dL 12.0-15.0 [facility] Blood lymphocytes/100 leukoc ytesOrdered By: Mo Corea on 11-18-2022 Lymphocytes/100 WBC (Bld) 26.8 % 19-41 [facility] Blood monocytes/100 leukocyt esOrdered By: Mo Corea on 11-18-2022 Monocytes/100 WBC (Bld) 9.2 % 0-10 [facility] Blood platelet mean volumeOr dered By: Mo Corea on 11-18-2022 Platelet mean volume (Bld) [Entitic vol] 10.5 fL 6.2-12.0 [facility] Determination of erythrocyte mean corpuscular volume (MCV)Ordered By: Mo Corea on 11-18-2022 MCV (RBC) [Entitic vol] 92.4 fL 81-99 [facility] Hematocrit Auto (Bld) [Volum e fraction]Ordered By: Mo Corea on 11-18-2022 Hematocrit (Bld) [Volume fraction] 42.8 % 37-47 [facility] INR in Blood by Coagulation assayOrdered By: Mo Corea on 11-18-2022 INR Coag (Bld) [Relative time] 2.0 {INR} [facility] Ketones Test strip Ql (U)Ord ered By: Mo Corea on 11-18-2022 Ketones Ql (U) Negative Negative [facility] Laboratory - Chemistry and C hemistry - challengeOrdered By: Mo Corea on 11-18-2022 ALP [Catalytic activity/Vol] 76 U/L 45-117 [facility] ALT [Catalytic activity/Vol] 13 U/L 13-56 [facility] CO2 [Moles/Vol] 30.0 mmol/L 21.0-32.0 [facility] Globulin (S) [Mass/Vol] 3.6 g/dL 2.2-4.2 [facility] Urea nitrogen/Creatinine [Mass ratio] 13.6 mg/mg 10-20 [facility] Laboratory - CoagulationOrde red By: Mo Corea on 11-18-2022 aPTT Coag (Bld) [Time] 48.1 s 24.1-36.2 [facility] PT Coag (PPP) [Time] 22.7 s 11.7-14.9 [facility] Laboratory - Hematology and Cell countsOrdered By: Mo Corea on 11-18-2022 Erythrocyte distribution width (RBC) [Entitic vol] 44.2 fL 35.1-43.9 [facility] Erythrocyte distribution width (RBC) [Ratio] 13.1 % 11.6-14.6 [facility] Immature granulocytes/100 WBC (Bld) 0.300 % 0.0-0.9 [facility] Comment on above: IG% - Immature Granu locytes (promyelocytes, myelocytes and metamyelocytes) > 1% indicates that a LEFT SHIFT is Present. MCH (RBC) [Entitic mass] 30.0 pg 27.0-32.0 [facility] Nucleated RBC/100 WBC (Bld) [Ratio] 0 % 0-5 [facility] MCHC Auto (RBC) [Mass/Vol]Or dered By: Mo Corea on 11-18-2022 MCHC (RBC) [Mass/Vol] 32.5 g/dL 32-36 [facility] Mucus LM Ql (Urine sed)Order ed By: Mo Corea on 11-18-2022 Mucus Ql (Urine sed) 0 SEEN /hpf [facility] Nitrite Test strip Ql (U)Ord ered By: Mo Corea on 11-18-2022 Nitrite Ql (U) Negative Negative [facility] No Panel InformationOrdered By: Mo Corea on 11-18-2022 Estimated Creatinine Clearance Calc 31.83 ml/min [facility] Estimated GFR (MDRD) Amer 65 mL/min >60 [facility] Comment on above: GFR Calc Estimated GFR (MDRD) Non-Af Amer 54 mL/min >60 [facility] Comment on above: Non- GFR Calc Platelets bldOrdered By: Rebecca Corea on 11-18-2022 Platelets (Bld) [#/Vol] 289 10*3/uL 150-450 [facility] Protein Test strip Ql (U)Ord ered By: Mo Corea on 11-18-2022 Protein Ql (U) 15 mg/dl Negative [facility] Serum or plasma albumin viktoria urement (mass/volume)Ordered By: Mo Corea on 11-18-2022 Albumin [Mass/Vol] 3.3 g/dL 3.2-5.0 [facility] Serum or plasma albumin/glob ulin mass ratioOrdered By: Mo Corea on 11-18-2022 Albumin/Globulin [Mass ratio] 0.9 {ratio} 0.9-2.4 [facility] Serum or plasma calcium viktoria urement (mass/volume)Ordered By: Mo Corea on 11-18-2022 Calcium [Mass/Vol] 8.7 mg/dL 8.5-10.1 [facility] Serum or plasma creatinine m easurement (mass/volume)Ordered By: Mo Corea on 11-18-2022 Creatinine [Mass/Vol] 1.03 mg/dL 0.55-1.02 [facility] Comment on above: The validity of the calculated GFR & GFRAA in patients over 70 years has not been determined. Clinical correlation is essential. Serum or plasma urea nitroge n measurement (mass/volume)Ordered By: Mo Corea on 11-18-2022 Urea nitrogen [Mass/Vol] 14 mg/dL 7-18 [facility] Squamous epithelial cells de tection in urine sediment by light microscopyOrdered By: Mo Corea on 11-18-2022 Epithelial cells.squamous LM Ql (Urine sed) 0-5 SEEN /hpf 5-10 [facility] Thin prep Papanicolaou smear with manual screeningOrdered By: Mo Corea on 11-18-2022 Thin prep Papanicolaou smear with manual screening 15 U/L 15-37 [facility] Thin prep Papanicolaou smear with manual screening 2 5-15 [facility] Urine blood detectionOrdered By: Mo Corea on 11-18-2022 RBC Ql (U) Negative Negative [facility] RBC Ql (U) 0 SEEN /hpf 0-5 [facility] Urine clarityOrdered By: Rebecca Corea on 11-18-2022 Clarity (U) Sl. Cloudy Clear [facility] Urine color determinationOrd ered By: Mo Corea on 11-18-2022 Color (U) Yellow Yellow [facility] Urine glucose detectionOrder ed By: Mo Corea on 11-18-2022 Glucose Ql (U) Normal mg/dl Normal [facility] Urine leukocyte esterase det ection by dipstickOrdered By: Mo Corea on 11-18-2022 Leukocyte esterase Test strip Ql (U) 25 /ul Negative [facility] Urine pHOrdered By: Mo amado on 11-18-2022 pH (U) 7.0 [pH] 5.0 - 8.0 [facility] Urine sediment bacteria coun t by microscopy (number/high power field)Ordered By: Mo Corea on 11-18-2022 Bacteria LM.HPF (Urine sed) [#/Area] 0 /[HPF] None Seen [facility] Urine specific gravity measu rementOrdered By: Mo Corea on 11-18-2022 Specific gravity (U) [Rel density] 1.010 1.002-1.030 [facility] Urobilinogen Auto test strip Ql (U)Ordered By: Mo Corea on 11-18-2022 Urobilinogen Ql (U) Normal mg/dl Normal [facility] Absolute lymphocyte countOrd ered By: Sae Carballo on 11-15-2022 Lymphocytes Auto (Unsp spec) [#/Vol] 2.03 10*3/uL 0.83-4.51 [facility] Basophil percentageOrdered B y: Sae Carballo on 11-15-2022 Basophils/100 WBC (Bld) 0.5 % 0-1 [facility] Chloride [Moles/Vol] 107 mmol/L 98-107 [facility] Cholesterol [Mass/Vol] 164 mg/dL <200 [facility] Comment on above: <200 mg/dL Desirable 200-240 mg/dL Borderline >240 mg/dL High Risk Eosinophils/100 WBC (Bld) 3.5 % 0-5 [facility] Glucose [Mass/Vol] 124 mg/dL 74-106 [facility] Comment on above: Fasting Glucose resu lt from 100 to 125 mg/dL suggests IMPAIRED HOMEOSTASIS per A.D.A. criteria. Neutrophils (Bld) [#/Vol] 4.7 10*3/uL 2.0-7.7 [facility] Neutrophils/100 WBC (Bld) 60.3 % 47-70 [facility] Potassium [Moles/Vol] 4.1 mmol/L 3.5-5.1 [facility] Sodium [Moles/Vol] 139 mmol/L 136-145 [facility] Triglyceride [Mass/Vol] 133 mg/dL <199 [facility] Comment on above: The drugs N-Acetylcy steine and Metamizole may falsely depress this assay.Serum Triglycerides Reference Interval Normal <150 mg/dL Borderline high 150 - 199 mg/dL High 200 - 499 mg/dL Very High > or = 500 mg/dL WBC (Bld) [#/Vol] 7.8 10*3/uL 4.4-11.0 [facility] Blood erythrocytes count (nu mber/volume)Ordered By: Sae Carballo on 11-15-2022 RBC (Bld) [#/Vol] 4.32 10*6/uL 4.2-5.4 [facility] Blood hemoglobin measurement (mass/volume)Ordered By: Sae Carballo on 11-15-2022 Hemoglobin (Bld) [Mass/Vol] 12.9 g/dL 12.0-15.0 [facility] Blood lymphocytes/100 leukoc ytesOrdered By: Sae Carballo on 11-15-2022 Lymphocytes/100 WBC (Bld) 26.2 % 19-41 [facility] Blood monocytes/100 leukocyt esOrdered By: Sae Carballo on 11-15-2022 Monocytes/100 WBC (Bld) 9.4 % 0-10 [facility] Blood platelet mean volumeOr dered By: Sae Carballo on 11-15-2022 Platelet mean volume (Bld) [Entitic vol] 10.6 fL 6.2-12.0 [facility] Determination of erythrocyte mean corpuscular volume (MCV)Ordered By: Sae Carballo on 11-15-2022 MCV (RBC) [Entitic vol] 91.7 fL 81-99 [facility] Hematocrit Auto (Bld) [Volum e fraction]Ordered By: Sae Carballo on 11-15-2022 Hematocrit (Bld) [Volume fraction] 39.6 % 37-47 [facility] INR in Blood by Coagulation assayOrdered By: Sae Carballo on 11-15-2022 INR Coag (Bld) [Relative time] 2.0 {INR} [facility] Laboratory - Chemistry and C hemistry - challengeOrdered By: Sae Carballo on 11-15-2022 CO2 [Moles/Vol] 25.0 mmol/L 21.0-32.0 [facility] Urea nitrogen/Creatinine [Mass ratio] 15.8 mg/mg 10-20 [facility] Laboratory - CoagulationOrde red By: Sae Carballo on 11-15-2022 PT Coag (PPP) [Time] 23.0 s 11.7-14.9 [facility] [facility] - Hematology and Cell countsOrdered By: Sae Carballo on 11-15-2022 Erythrocyte distribution width (RBC) [Entitic vol] 43.4 fL 35.1-43.9 [facility] Erythrocyte distribution width (RBC) [Ratio] 12.9 % 11.6-14.6 [facility] Immature granulocytes/100 WBC (Bld) 0.100 % 0.0-0.9 [facility] Comment on above: IG% - Immature Granu locytes (promyelocytes, myelocytes and metamyelocytes) > 1% indicates that a LEFT SHIFT is Present. MCH (RBC) [Entitic mass] 29.9 pg 27.0-32.0 [facility] Nucleated RBC/100 WBC (Bld) [Ratio] 0 % 0-5 [facility] MCHC Auto (RBC) [Mass/Vol]Or dered By: Sae Craballo on 11-15-2022 MCHC (RBC) [Mass/Vol] 32.6 g/dL 32-36 [facility] No Panel InformationOrdered By: Sae Carballo on 11-15-2022 Estimated Creatinine Clearance Calc 37.26 ml/min [facility] Estimated GFR (MDRD) Amer 78 mL/min >60 [facility] Comment on above: GFR Calc Estimated GFR (MDRD) Non-Af Amer 64 mL/min >60 [facility] Comment on above: Non- GFR Calc Platelets bldOrdered By: Raoms Carballo on 11-15-2022 Platelets (Bld) [#/Vol] 278 10*3/uL 150-450 [facility] Serum or plasma calcium viktoria urement (mass/volume)Ordered By: Sae Carballo on 11-15-2022 Calcium [Mass/Vol] 8.5 mg/dL 8.5-10.1 [facility] Serum or plasma cholesterol in HDL measurement (mass/volume)Ordered By: Sae Carballo on 11-15-2022 Cholesterol in HDL [Mass/Vol] 49 mg/dL >40 [facility] Comment on above: The drugs N-Acetylcy steine and Metamizole may falsely depress this assay. Reference Range HDL <40 mg/dL Low HDL Cholesterol HDL >or= 60 mg/dL High HDL Cholesterol Serum or plasma cholesterol in VLDL measurement (mass/volume)Ordered By: Sae Carballo on 11-15-2022 Cholesterol in VLDL [Mass/Vol] 27 mg/dL 5-40 [facility] Serum or plasma creatinine m easurement (mass/volume)Ordered By: Sae Carballo on 11-15-2022 Creatinine [Mass/Vol] 0.88 mg/dL 0.55-1.02 [facility] Comment on above: The validity of the calculated GFR & GFRAA in patients over 70 years has not been determined. Clinical correlation is essential. Serum or plasma low density lipoprotein (LDL) cholesterol measurement (mass/volume)Ordered By: Sae Carballo on 11-15-2022 Cholesterol in LDL [Mass/Vol] 88 mg/dL 0-130 [facility] Serum or plasma urea nitroge n measurement (mass/volume)Ordered By: Sae Carballo on 11-15-2022 Urea nitrogen [Mass/Vol] 14 mg/dL - [facility] Thin prep Papanicolaou smear with manual screeningOrdered By: Sae Carballo on 11-15-2022 Thin prep Papanicolaou smear with manual screening 7 - [facility] Absolute lymphocyte countOrd ered By: Neri Mitchell on 11-14-2022 Lymphocytes Auto (Unsp spec) [#/Vol] 2.35 10*3/uL 0.83-4.51 [facility] Basophil percentageOrdered B y: Neri Mitchell on 11-14-2022 Basophils/100 WBC (Bld) 0.6 % 0-1 [facility] Chloride [Moles/Vol] 104 mmol/L 98-107 [facility] Eosinophils/100 WBC (Bld) 2.4 % 0-5 [facility] Glucose [Mass/Vol] 135 mg/dL 74-106 [facility] Comment on above: Fasting Glucose resu lt greater than or equal to 126 mg/dL suggests DIABETES MELLITUS per A.D.A. criteria. Neutrophils (Bld) [#/Vol] 6.0 10*3/uL 2.0-7.7 [facility] Neutrophils/100 WBC (Bld) 64.0 % 47-70 [facility] Potassium [Moles/Vol] 4.0 mmol/L 3.5-5.1 [facility] Sodium [Moles/Vol] 138 mmol/L 136-145 [facility] WBC (Bld) [#/Vol] 9.4 10*3/uL 4.4-11.0 [facility] Blood erythrocytes count (nu mber/volume)Ordered By: Neri Mitchell on 11-14-2022 RBC (Bld) [#/Vol] 4.79 10*6/uL 4.2-5.4 [facility] Blood hemoglobin measurement (mass/volume)Ordered By: Neri Mitchell on 11-14-2022 Hemoglobin (Bld) [Mass/Vol] 14.3 g/dL 12.0-15.0 [facility] Blood lymphocytes/100 leukoc ytesOrdered By: Neri Mitchell on 11-14-2022 Lymphocytes/100 WBC (Bld) 24.9 % 19-41 [facility] Blood monocytes/100 leukocyt esOrdered By: Neri Mitchell on 11-14-2022 Monocytes/100 WBC (Bld) 7.8 % 0-10 [facility] Blood platelet mean volumeOr dered By: Neri Mitchell on 11-14-2022 Platelet mean volume (Bld) [Entitic vol] 10.6 fL 6.2-12.0 [facility] Determination of erythrocyte mean corpuscular volume (MCV)Ordered By: Neri Mitchell on 11-14-2022 MCV (RBC) [Entitic vol] 93.5 fL 81-99 [facility] Glucose Glucometer (BldC) [M ass/Vol]Ordered By: Neri Mitchell on 11-14-2022 Glucose [Mass/Vol] 136 mg/dL 74-106 [facility] Comment on above: MANAGEMENT OF PATIEN T CARE PER NURSING PROTOCOL Hematocrit Auto (Bld) [Volum e fraction]Ordered By: Neri Mitchell on 11-14-2022 Hematocrit (Bld) [Volume fraction] 44.8 % 37-47 [facility] INR in Blood by Coagulation assayOrdered By: Neri Mitchell on 11-14-2022 INR Coag (Bld) [Relative time] 1.8 {INR} [facility] Laboratory - Chemistry and C hemistry - challengeOrdered By: Neri Mitchell on 11-14-2022 CO2 [Moles/Vol] 28.0 mmol/L 21.0-32.0 [facility] Urea nitrogen/Creatinine [Mass ratio] 12.3 mg/mg 10-20 [facility] Laboratory - CoagulationOrde red By: Neri Mitchell on 11-14-2022 aPTT Coag (Bld) [Time] 43.3 s 24.1-36.2 [facility] PT Coag (PPP) [Time] 21.3 s 11.7-14.9 [facility] Laboratory - Hematology and Cell countsOrdered By: Neri Mitchell on 11-14-2022 Erythrocyte distribution width (RBC) [Entitic vol] 44.7 fL 35.1-43.9 [facility] Erythrocyte distribution width (RBC) [Ratio] 13.0 % 11.6-14.6 [facility] Immature granulocytes/100 WBC (Bld) 0.300 % 0.0-0.9 [facility] Comment on above: IG% - Immature Granu locytes (promyelocytes, myelocytes and metamyelocytes) > 1% indicates that a LEFT SHIFT is Present. MCH (RBC) [Entitic mass] 29.9 pg 27.0-32.0 [facility] Nucleated RBC/100 WBC (Bld) [Ratio] 0 % 0-5 [facility] MCHC Auto (RBC) [Mass/Vol]Or dered By: Neri Mitchell on 11-14-2022 MCHC (RBC) [Mass/Vol] 31.9 g/dL 32-36 [facility] No Panel InformationOrdered By: Neri Mitchell on 11-14-2022 Estimated Creatinine Clearance Calc 28.76 ml/min [facility] Estimated GFR (MDRD) Amer 58 mL/min >60 [facility] Comment on above: GFR Calc Estimated GFR (MDRD) Non-Af Amer 48 mL/min >60 [facility] Comment on above: Non- GFR Calc Troponin I High Sensitivity 10 pg/mL 3.0-54.0 [facility] Comment on above: Please Note: New Evon t Units and Gender Specific Reference Ranges. For more information see Policy Stat Procedure [place] High Sensitivity Troponin (TNIH) and attachments. Platelets bldOrdered By: Prasad Mitchell on 11-14-2022 Platelets (Bld) [#/Vol] 313 10*3/uL 150-450 [facility] Serum or plasma calcium viktoria urement (mass/volume)Ordered By: Neri Mitchell on 11-14-2022 Calcium [Mass/Vol] 9.0 mg/dL 8.5-10.1 [facility] Serum or plasma creatinine m easurement (mass/volume)Ordered By: Neri Mitchell on 11-14-2022 Creatinine [Mass/Vol] 1.14 mg/dL 0.55-1.02 [facility] Comment on above: The validity of the calculated GFR & GFRAA in patients over 70 years has not been determined. Clinical correlation is essential. Serum or plasma urea nitroge n measurement (mass/volume)Ordered By: Neri Mitchell on 11-14-2022 Urea nitrogen [Mass/Vol] 14 mg/dL 7-18 [facility] Thin prep Papanicolaou smear with manual screeningOrdered By: Neri Mitchell on 11-14-2022 Thin prep Papanicolaou smear with manual screening 6 5-15 [facility] INR in Blood by Coagulation assayOrdered By: Dr. Juarez on 09-18-2022 INR Coag (Bld) [Relative time] 1.8 {INR} [facility] Laboratory - CoagulationOrde red By: Dr. Juarez on 09-18-2022 PT Coag (PPP) [Time] 20.9 s 11.7-14.9 [facility] No Panel InformationOrdered By: Anant Juarez on 09-18-2022 Free Lambda Light Chains, Quant 15.7 mg/L 5.7-26.3 [facility] Whole Blood Vitamin B1 Level 111.8 nmol/L 66.5-200.0 [facility] Comment on above: Performed at: [facility] [employer] [id number] Director: Master Vee PhD, Phone: [phone] at: [facility] [employer] [id number] Director: Brandon Wells MD, Phone: [phone] Serum immunoglobulin kappa l ight chains/immunoglobulin lambda light chains mass ratioOrdered By: Anant Juarez on 09-18-2022 Immunoglobulin light chains.kappa/Immunoglobul in light chains.lambda (S) [Mass ratio] 1.74 0.26-1.65 [facility] Serum or plasma folate measu rement (mass/volume)Ordered By: Dr. Juarez on 09-18-2022 Folate [Mass/Vol] 51.90 ng/mL 3.1-55.4 [facility] Comment on above: Slight Hemolysis, Re sult may be falsely increased. Serum or plasma immunoglobul in kappa light chains measurement (mass/volume)Ordered By: Anant Juarez on 09-18-2022 Immunoglobulin light chains.kappa [Mass/Vol] 27.3 mg/L 3.3-19.4 [facility] Culture, urineOrdered By: Slim Doran on 09-17-2022 Bacteria identified Cx Nom (U) Streptococcus agalactiae (B) [facility] INR in Blood by Coagulation assayOrdered By: Dr. Doran on 09-13-2022 INR Coag (Bld) [Relative time] 1.5 {INR} [facility] Laboratory - CoagulationOrde red By: Dr. Doran on 09-13-2022 PT Coag (PPP) [Time] 18.1 s 11.7-14.9 [facility] Absolute lymphocyte countOrd ered By: Dr. Barcenas on 09-08-2022 Lymphocytes Auto (Unsp spec) [#/Vol] 2.60 10*3/uL 0.83-4.51 [facility] Basophil percentageOrdered B y: Dr. Barcenas on 09-08-2022 Basophil percentage 0 SEEN /hpf 0-5 [facility] Basophils/100 WBC (Bld) 0.4 % 0-1 [facility] Bilirubin [Mass/Vol] 0.30 mg/dL 0.20-1.00 [facility] Comment on above: For patients on eltr ombopag therapy, use of Dimension [place] TBIL is not recommended. Chloride [Moles/Vol] 103 mmol/L 98-107 [facility] Eosinophils/100 WBC (Bld) 2.3 % 0-5 [facility] Glucose [Mass/Vol] 78 mg/dL 74-106 [facility] Neutrophils (Bld) [#/Vol] 5.2 10*3/uL 2.0-7.7 [facility] Neutrophils/100 WBC (Bld) 57.4 % 47-70 [facility] Potassium [Moles/Vol] 3.8 mmol/L 3.5-5.1 [facility] Protein [Mass/Vol] 6.9 g/dL 6.4-8.2 [facility] Sodium [Moles/Vol] 139 mmol/L 136-145 [facility] WBC (Bld) [#/Vol] 9.1 10*3/uL 4.4-11.0 [facility] Bilirubin Test strip Ql (U)O rdered By: Dr. Barcenas on 09-08-2022 Bilirubin Ql (U) Negative Negative [facility] Blood erythrocytes count (nu mber/volume)Ordered By: Dr. Barcenas on 09-08-2022 RBC (Bld) [#/Vol] 4.48 10*6/uL 4.2-5.4 [facility] Blood hemoglobin measurement (mass/volume)Ordered By: Dr. Barcenas on 09-08-2022 Hemoglobin (Bld) [Mass/Vol] 13.4 g/dL 12.0-15.0 [facility] Blood lymphocytes/100 leukoc ytesOrdered By: Dr. Barcenas on 09-08-2022 Lymphocytes/100 WBC (Bld) 28.5 % 19-41 [facility] Blood monocytes/100 leukocyt esOrdered By: Dr. Barcenas on 09-08-2022 Monocytes/100 WBC (Bld) 11.1 % 0-10 [facility] Blood platelet mean volumeOr dered By: Dr. Barcenas on 09-08-2022 Platelet mean volume (Bld) [Entitic vol] 10.7 fL 6.2-12.0 [facility] Determination of erythrocyte mean corpuscular volume (MCV)Ordered By: Dr. Barcenas on 09-08-2022 MCV (RBC) [Entitic vol] 92.4 fL 81-99 [facility] Hematocrit Auto (Bld) [Volum e fraction]Ordered By: Dr. Barcenas on 09-08-2022 Hematocrit (Bld) [Volume fraction] 41.4 % 37-47 [facility] INR in Blood by Coagulation assayOrdered By: Dr. Barcenas on 09-08-2022 INR Coag (Bld) [Relative time] 1.0 {INR} [facility] Ketones Test strip Ql (U)Ord ered By: Dr. Barcenas on 09-08-2022 Ketones Ql (U) Negative Negative [facility] Laboratory - Chemistry and C hemistry - challengeOrdered By: Dr. Barcenas on 09-08-2022 ALP [Catalytic activity/Vol] 71 U/L 45-117 [facility] ALT [Catalytic activity/Vol] 9 U/L 13-56 [facility] CO2 [Moles/Vol] 30.0 mmol/L 21.0-32.0 [facility] Globulin (S) [Mass/Vol] 3.7 g/dL 2.2-4.2 [facility] Urea nitrogen/Creatinine [Mass ratio] 17.1 mg/mg 10-20 [facility] Laboratory - CoagulationOrde red By: Dr. Barcenas on 09-08-2022 PT Coag (PPP) [Time] 13.6 s 11.7-14.9 [facility] Laboratory - Hematology and Cell countsOrdered By: Dr. Barcenas on 09-08-2022 Erythrocyte distribution width (RBC) [Entitic vol] 44.8 fL 35.1-43.9 [facility] Erythrocyte distribution width (RBC) [Ratio] 13.2 % 11.6-14.6 [facility] Immature granulocytes/100 WBC (Bld) 0.300 % 0.0-0.9 [facility] Comment on above: IG% - Immature Granu locytes (promyelocytes, myelocytes and metamyelocytes) > 1% indicates that a LEFT SHIFT is Present. MCH (RBC) [Entitic mass] 29.9 pg 27.0-32.0 [facility] Nucleated RBC/100 WBC (Bld) [Ratio] 0 % 0-5 [facility] MCHC Auto (RBC) [Mass/Vol]Or dered By: Dr. Barcenas on 09-08-2022 MCHC (RBC) [Mass/Vol] 32.4 g/dL 32-36 [facility] Mucus LM Ql (Urine sed)Order ed By: Dr. Barcenas on 09-08-2022 Mucus Ql (Urine sed) 0 SEEN /hpf [facility] Nitrite Test strip Ql (U)Ord ered By: Dr. Barcenas on 09-08-2022 Nitrite Ql (U) Negative Negative [facility] No Panel InformationOrdered By: Dr. Barcenas on 09-08-2022 Estimated Creatinine Clearance Calc 31.23 ml/min [facility] Estimated GFR (MDRD) Amer 64 mL/min >60 [facility] Comment on above: GFR Calc Estimated GFR (MDRD) Non-Af Amer 53 mL/min >60 [facility] Comment on above: Non- GFR Calc Troponin I High Sensitivity 86 pg/mL 3.0-54.0 [facility] Comment on above: Please Note: New Evon t Units and Gender Specific Reference Ranges. For more information see Policy Stat Procedure [place] High Sensitivity Troponin (TNIH) and attachments. Platelets bldOrdered By: Dr. Barcenas on 09-08-2022 Platelets (Bld) [#/Vol] 294 10*3/uL 150-450 [facility] Protein Test strip Ql (U)Ord ered By: Dr. Barcenas on 09-08-2022 Protein Ql (U) Negative Negative [facility] Serum or plasma albumin viktoria urement (mass/volume)Ordered By: Dr. Barcenas on 09-08-2022 Albumin [Mass/Vol] 3.2 g/dL 3.2-5.0 [facility] Serum or plasma albumin/glob ulin mass ratioOrdered By: Dr. Barcenas on 09-08-2022 Albumin/Globulin [Mass ratio] 0.9 {ratio} 0.9-2.4 [facility] Serum or plasma calcium viktoria urement (mass/volume)Ordered By: Dr. Barcenas on 09-08-2022 Calcium [Mass/Vol] 8.8 mg/dL 8.5-10.1 [facility] Serum or plasma creatinine m easurement (mass/volume)Ordered By: Dr. Barcenas on 09-08-2022 Creatinine [Mass/Vol] 1.05 mg/dL 0.55-1.02 [facility] Comment on above: The validity of the calculated GFR & GFRAA in patients over 70 years has not been determined. Clinical correlation is essential. Serum or plasma urea nitroge n measurement (mass/volume)Ordered By: Dr. Barcenas on 09-08-2022 Urea nitrogen [Mass/Vol] 18 mg/dL 7-18 [facility] Squamous epithelial cells de tection in urine sediment by light microscopyOrdered By: Dr. Barcenas on 09-08-2022 Epithelial cells.squamous LM Ql (Urine sed) 0-5 SEEN /hpf 5-10 [facility] Thin prep Papanicolaou smear with manual screeningOrdered By: Dr. Barcenas on 09-08-2022 Thin prep Papanicolaou smear with manual screening 9 U/L 15-37 [facility] Thin prep Papanicolaou smear with manual screening 6 5-15 [facility] Urine blood detectionOrdered By: Dr. Barcenas on 09-08-2022 RBC Ql (U) Negative Negative [facility] RBC Ql (U) 0 SEEN /hpf 0-5 [facility] Urine clarityOrdered By: Dr. Barcenas on 09-08-2022 Clarity (U) Clear Clear [facility] Urine color determinationOrd ered By: Dr. Barcenas on 09-08-2022 Color (U) Yellow Yellow [facility] Urine glucose detectionOrder ed By: Dr. Barcenas on 09-08-2022 Glucose Ql (U) Normal mg/dl Normal [facility] Urine leukocyte esterase det ection by dipstickOrdered By: Dr. Barcenas on 09-08-2022 Leukocyte esterase Test strip Ql (U) Negative Negative [facility] Urine pHOrdered By: Dr. Moody delgado on 09-08-2022 pH (U) 6.5 [pH] 5.0 - 8.0 [facility] Urine sediment bacteria coun t by microscopy (number/high power field)Ordered By: Dr. Barcenas on 09-08-2022 Bacteria LM.HPF (Urine sed) [#/Area] 0 /[HPF] None Seen [facility] Urine specific gravity measu rementOrdered By: Dr. Barcenas on 09-08-2022 Specific gravity (U) [Rel density] 1.010 1.002-1.030 [facility] Urobilinogen Auto test strip Ql (U)Ordered By: Dr. Barcenas on 09-08-2022 Urobilinogen Ql (U) Normal mg/dl Normal [facility] Absolute lymphocyte countOrd ered By: Dr. Doran on 09-05-2022 Lymphocytes Auto (Unsp spec) [#/Vol] 1.27 10*3/uL 0.83-4.51 [facility] Basophil percentageOrdered B y: Dr. Doran on 09-05-2022 Basophils/100 WBC (Bld) 0.4 % 0-1 [facility] Chloride [Moles/Vol] 106 mmol/L 98-107 [facility] Eosinophils/100 WBC (Bld) 1.0 % 0-5 [facility] Glucose [Mass/Vol] 202 mg/dL 74-106 [facility] Comment on above: Glucose result great er than or equal to 200 mg/dLsuggests DIABETES MELLITUS per A.D.A. criteria. Neutrophils (Bld) [#/Vol] 8.3 10*3/uL 2.0-7.7 [facility] Neutrophils/100 WBC (Bld) 79.7 % 47-70 [facility] Potassium [Moles/Vol] 3.7 mmol/L 3.5-5.1 [facility] Sodium [Moles/Vol] 139 mmol/L 136-145 [facility] WBC (Bld) [#/Vol] 10.4 10*3/uL 4.4-11.0 [facility] Blood erythrocytes count (nu mber/volume)Ordered By: Dr. Doran on 09-05-2022 RBC (Bld) [#/Vol] 4.72 10*6/uL 4.2-5.4 [facility] Blood hemoglobin measurement (mass/volume)Ordered By: Dr. Doran on 09-05-2022 Hemoglobin (Bld) [Mass/Vol] 14.1 g/dL 12.0-15.0 [facility] Blood lymphocytes/100 leukoc ytesOrdered By: Dr. Doran on 09-05-2022 Lymphocytes/100 WBC (Bld) 12.3 % 19-41 [facility] Blood monocytes/100 leukocyt esOrdered By: Dr. Doran on 09-05-2022 Monocytes/100 WBC (Bld) 6.3 % 0-10 [facility] Blood platelet mean volumeOr dered By: Dr. Doran on 09-05-2022 Platelet mean volume (Bld) [Entitic vol] 11.2 fL 6.2-12.0 [facility] Determination of erythrocyte mean corpuscular volume (MCV)Ordered By: Dr. Doran on 09-05-2022 MCV (RBC) [Entitic vol] 93.9 fL 81-99 [facility] Hematocrit Auto (Bld) [Volum e fraction]Ordered By: Dr. Doran on 09-05-2022 Hematocrit (Bld) [Volume fraction] 44.3 % 37-47 [facility] INR in Blood by Coagulation assayOrdered By: Dr. Doran on 09-05-2022 INR Coag (Bld) [Relative time] 1.1 {INR} [facility] Laboratory - Chemistry and C hemistry - challengeOrdered By: Dr. Doran on 09-05-2022 CO2 [Moles/Vol] 24.0 mmol/L 21.0-32.0 [facility] Urea nitrogen/Creatinine [Mass ratio] 18.3 mg/mg 10-20 [facility] Laboratory - CoagulationOrde red By: Dr. Doran on 09-05-2022 PT Coag (PPP) [Time] 13.8 s 11.7-14.9 [facility] Laboratory - Hematology and Cell countsOrdered By: Dr. Doran on 09-05-2022 Erythrocyte distribution width (RBC) [Entitic vol] 45.5 fL 35.1-43.9 [facility] Erythrocyte distribution width (RBC) [Ratio] 13.2 % 11.6-14.6 [facility] Immature granulocytes/100 WBC (Bld) 0.300 % 0.0-0.9 [facility] Comment on above: IG% - Immature Granu locytes (promyelocytes, myelocytes and metamyelocytes) > 1% indicates that a LEFT SHIFT is Present. MCH (RBC) [Entitic mass] 29.9 pg 27.0-32.0 [facility] Nucleated RBC/100 WBC (Bld) [Ratio] 0 % 0-5 [facility] MCHC Auto (RBC) [Mass/Vol]Or dered By: Dr. Doran on 09-05-2022 MCHC (RBC) [Mass/Vol] 31.8 g/dL 32-36 [facility] No Panel InformationOrdered By: Dr. Doran on 09-05-2022 Estimated GFR (MDRD) Amer 61 mL/min >60 [facility] Comment on above: GFR Calc Estimated GFR (MDRD) Non-Af Amer 50 mL/min >60 [facility] Comment on above: Non- GFR Calc Thyroid Stimulating Hormone (TSH) 2.84 uIU/mL 0.358-3.74 [facility] Platelets bldOrdered By: Dr. Doran on 09-05-2022 Platelets (Bld) [#/Vol] 311 10*3/uL 150-450 [facility] Serum or plasma calcium viktoria urement (mass/volume)Ordered By: Dr. Doran on 09-05-2022 Calcium [Mass/Vol] 8.8 mg/dL 8.5-10.1 [facility] Serum or plasma creatinine m easurement (mass/volume)Ordered By: Dr. Doran on 09-05-2022 Creatinine [Mass/Vol] 1.09 mg/dL 0.55-1.02 [facility] Comment on above: The validity of the calculated GFR & GFRAA in patients over 70 years has not been determined. Clinical correlation is essential. Serum or plasma urea nitroge n measurement (mass/volume)Ordered By: Dr. Doran on 09-05-2022 Urea nitrogen [Mass/Vol] 20 mg/dL 7-18 [facility] Thin prep Papanicolaou smear with manual screeningOrdered By: Dr. Doran on 09-05-2022 Thin prep Papanicolaou smear with manual screening 9 5-15 [facility] Absolute lymphocyte countOrd ered By: Dr. Doran on 08-08-2022 Lymphocytes Auto (Unsp spec) [#/Vol] 1.97 10*3/uL 0.83-4.51 [facility] Basophil percentageOrdered B y: Dr. Doran on 08-08-2022 Basophils/100 WBC (Bld) 0.5 % 0-1 [facility] Chloride [Moles/Vol] 105 mmol/L 98-107 [facility] Eosinophils/100 WBC (Bld) 3.2 % 0-5 [facility] Glucose [Mass/Vol] 147 mg/dL 74-106 [facility] Comment on above: Fasting Glucose resu lt greater than or equal to 126 mg/dL suggests DIABETES MELLITUS per A.D.A. criteria. Neutrophils (Bld) [#/Vol] 4.6 10*3/uL 2.0-7.7 [facility] Neutrophils/100 WBC (Bld) 60.9 % 47-70 [facility] Potassium [Moles/Vol] 4.9 mmol/L 3.5-5.1 [facility] Sodium [Moles/Vol] 140 mmol/L 136-145 [facility] WBC (Bld) [#/Vol] 7.5 10*3/uL 4.4-11.0 [facility] Blood erythrocytes count (nu mber/volume)Ordered By: Dr. Doran on 08-08-2022 RBC (Bld) [#/Vol] 4.73 10*6/uL 4.2-5.4 [facility] Blood hemoglobin measurement (mass/volume)Ordered By: Dr. Doran on 08-08-2022 Hemoglobin (Bld) [Mass/Vol] 14.0 g/dL 12.0-15.0 [facility] Blood lymphocytes/100 leukoc ytesOrdered By: Dr. Doran on 08-08-2022 Lymphocytes/100 WBC (Bld) 26.2 % 19-41 [facility] Blood monocytes/100 leukocyt esOrdered By: Dr. Doran on 08-08-2022 Monocytes/100 WBC (Bld) 8.8 % 0-10 [facility] Blood platelet mean volumeOr dered By: Dr. Doran on 08-08-2022 Platelet mean volume (Bld) [Entitic vol] 10.9 fL 6.2-12.0 [facility] Determination of erythrocyte mean corpuscular volume (MCV)Ordered By: Dr. Doran on 08-08-2022 MCV (RBC) [Entitic vol] 94.1 fL 81-99 [facility] Hematocrit Auto (Bld) [Volum e fraction]Ordered By: Dr. Doran on 08-08-2022 Hematocrit (Bld) [Volume fraction] 44.5 % 37-47 [facility] Laboratory - Chemistry and C hemistry - challengeOrdered By: Dr. Doran on 08-08-2022 CO2 [Moles/Vol] 29.0 mmol/L 21.0-32.0 [facility] Cobalamin (Vitamin B12) [Mass/Vol] 853 pg/mL 211-911 [facility] Urea nitrogen/Creatinine [Mass ratio] 18.3 mg/mg 10-20 [facility] Laboratory - Hematology and Cell countsOrdered By: Dr. Doran on 08-08-2022 Erythrocyte distribution width (RBC) [Entitic vol] 45.5 fL 35.1-43.9 [facility] Erythrocyte distribution width (RBC) [Ratio] 13.2 % 11.6-14.6 [facility] Immature granulocytes/100 WBC (Bld) 0.400 % 0.0-0.9 [facility] Comment on above: IG% - Immature Granu locytes (promyelocytes, myelocytes and metamyelocytes) > 1% indicates that a LEFT SHIFT is Present. MCH (RBC) [Entitic mass] 29.6 pg 27.0-32.0 [facility] Nucleated RBC/100 WBC (Bld) [Ratio] 0 % 0-5 [facility] MCHC Auto (RBC) [Mass/Vol]Or dered By: Dr. Doran on 08-08-2022 MCHC (RBC) [Mass/Vol] 31.5 g/dL 32-36 [facility] No Panel InformationOrdered By: Dr. Doran on 08-08-2022 Estimated GFR (MDRD) Amer 57 mL/min >60 [facility] Comment on above: GFR Calc Estimated GFR (MDRD) Non-Af Amer 47 mL/min >60 [facility] Comment on above: Non- GFR Calc Vitamin D 25-Hydroxy 35.5 ng/mL [facility] Comment on above: Vitamin D 25(OH) Sta tus Range Deficiency <20 ng/mL (50nmol/L) Insufficiency 20 - 30 ng/mL (50 - 75 nmol/L) Sufficiency 30 - 100 ng/mL (75 - 250 nmol/L) Toxicity >100 ng/mL (>250 nmol/L) Platelets bldOrdered By: Dr. Doran on 08-08-2022 Platelets (Bld) [#/Vol] 365 10*3/uL 150-450 [facility] Serum or plasma calcium viktoria urement (mass/volume)Ordered By: Dr. Doran on 08-08-2022 Calcium [Mass/Vol] 9.2 mg/dL 8.5-10.1 [facility] Serum or plasma creatinine m easurement (mass/volume)Ordered By: Dr. Doran on 08-08-2022 Creatinine [Mass/Vol] 1.15 mg/dL 0.55-1.02 [facility] Comment on above: The validity of the calculated GFR & GFRAA in patients over 70 years has not been determined. Clinical correlation is essential. Serum or plasma ferritin rich surement (mass/volume)Ordered By: Dr. Doran on 08-08-2022 Ferritin [Mass/Vol] 83 ng/mL 8-252 [facility] Serum or plasma urea nitroge n measurement (mass/volume)Ordered By: Dr. Doran on 08-08-2022 Urea nitrogen [Mass/Vol] 21 mg/dL 7-18 [facility] Thin prep Papanicolaou smear with manual screeningOrdered By: Dr. Doran on 08-08-2022 Thin prep Papanicolaou smear with manual screening 6 5-15 [facility] Absolute lymphocyte countOrd ered By: Dr. Doran on 06-26-2022 Lymphocytes Auto (Unsp spec) [#/Vol] 2.42 10*3/uL 0.83-4.51 [facility] Basophil percentageOrdered B y: Dr. Doran on 06-26-2022 Basophils/100 WBC (Bld) 0.5 % 0-1 [facility] Bilirubin [Mass/Vol] 0.40 mg/dL 0.20-1.00 [facility] Comment on above: For patients on eltr ombopag therapy, use of Dimension [place] TBIL is not recommended. Chloride [Moles/Vol] 106 mmol/L 98-107 [facility] Cholesterol [Mass/Vol] 163 mg/dL <200 [facility] Comment on above: <200 mg/dL Desirable 200-240 mg/dL Borderline >240 mg/dL High Risk Eosinophils/100 WBC (Bld) 4.2 % 0-5 [facility] Glucose [Mass/Vol] 142 mg/dL 74-106 [facility] Comment on above: Fasting Glucose resu lt greater than or equal to 126 mg/dL suggests DIABETES MELLITUS per A.D.A. criteria. Neutrophils (Bld) [#/Vol] 3.9 10*3/uL 2.0-7.7 [facility] Neutrophils/100 WBC (Bld) 53.1 % 47-70 [facility] Potassium [Moles/Vol] 4.3 mmol/L 3.5-5.1 [facility] Protein [Mass/Vol] 6.9 g/dL 6.4-8.2 [facility] Sodium [Moles/Vol] 139 mmol/L 136-145 [facility] Triglyceride [Mass/Vol] 178 mg/dL <199 [facility] Comment on above: The drugs N-Acetylcy steine and Metamizole may falsely depress this assay.Serum Triglycerides Reference Interval Normal <150 mg/dL Borderline high 150 - 199 mg/dL High 200 - 499 mg/dL Very High > or = 500 mg/dL WBC (Bld) [#/Vol] 7.4 10*3/uL 4.4-11.0 [facility] Blood erythrocytes count (nu mber/volume)Ordered By: Dr. Doran on 06-26-2022 RBC (Bld) [#/Vol] 4.51 10*6/uL 4.2-5.4 [facility] Blood hemoglobin measurement (mass/volume)Ordered By: Dr. Doran on 06-26-2022 Hemoglobin (Bld) [Mass/Vol] 13.5 g/dL 12.0-15.0 [facility] Blood lymphocytes/100 leukoc ytesOrdered By: Dr. Doran on 06-26-2022 Lymphocytes/100 WBC (Bld) 32.9 % 19-41 [facility] Blood monocytes/100 leukocyt esOrdered By: Dr. Doran on 06-26-2022 Monocytes/100 WBC (Bld) 9.0 % 0-10 [facility] Blood platelet mean volumeOr dered By: Dr. Doran on 06-26-2022 Platelet mean volume (Bld) [Entitic vol] 10.2 fL 6.2-12.0 [facility] Determination of erythrocyte mean corpuscular volume (MCV)Ordered By: Dr. Doran on 06-26-2022 MCV (RBC) [Entitic vol] 92.5 fL 81-99 [facility] Hematocrit Auto (Bld) [Volum e fraction]Ordered By: Dr. Doran on 06-26-2022 Hematocrit (Bld) [Volume fraction] 41.7 % 37-47 [facility] Laboratory - Chemistry and C hemistry - challengeOrdered By: Dr. Doran on 06-26-2022 ALP [Catalytic activity/Vol] 69 U/L 45-117 [facility] ALT [Catalytic activity/Vol] 13 U/L 13-56 [facility] CO2 [Moles/Vol] 29.0 mmol/L 21.0-32.0 [facility] Globulin (S) [Mass/Vol] 3.7 g/dL 2.2-4.2 [facility] Urea nitrogen/Creatinine [Mass ratio] 18.0 mg/mg 10-20 [facility] Laboratory - Hematology and Cell countsOrdered By: Dr. Doran on 06-26-2022 Erythrocyte distribution width (RBC) [Entitic vol] 43.9 fL 35.1-43.9 [facility] Erythrocyte distribution width (RBC) [Ratio] 12.9 % 11.6-14.6 [facility] Immature granulocytes/100 WBC (Bld) 0.300 % 0.0-0.9 [facility] Comment on above: IG% - Immature Granu locytes (promyelocytes, myelocytes and metamyelocytes) > 1% indicates that a LEFT SHIFT is Present. MCH (RBC) [Entitic mass] 29.9 pg 27.0-32.0 [facility] Nucleated RBC/100 WBC (Bld) [Ratio] 0 % 0-5 [facility] MCHC Auto (RBC) [Mass/Vol]Or dered By: Dr. Doran on 06-26-2022 MCHC (RBC) [Mass/Vol] 32.4 g/dL 32-36 [facility] No Panel InformationOrdered By: Dr. Doran on 06-26-2022 Estimated GFR (MDRD) Amer 60 mL/min >60 [facility] Comment on above: GFR Calc Estimated GFR (MDRD) Non-Af Amer 49 mL/min >60 [facility] Comment on above: Non- GFR Calc Platelets bldOrdered By: Dr. Doran on 06-26-2022 Platelets (Bld) [#/Vol] 314 10*3/uL 150-450 [facility] Serum or plasma albumin viktoria urement (mass/volume)Ordered By: Dr. Doran on 06-26-2022 Albumin [Mass/Vol] 3.2 g/dL 3.2-5.0 [facility] Serum or plasma albumin/glob ulin mass ratioOrdered By: Dr. Doran on 06-26-2022 Albumin/Globulin [Mass ratio] 0.9 {ratio} 0.9-2.4 [facility] Serum or plasma calcium viktoria urement (mass/volume)Ordered By: Dr. Doran on 06-26-2022 Calcium [Mass/Vol] 8.8 mg/dL 8.5-10.1 [facility] Serum or plasma cholesterol in HDL measurement (mass/volume)Ordered By: Dr. Doran on 06-26-2022 Cholesterol in HDL [Mass/Vol] 47 mg/dL >40 [facility] Comment on above: The drugs N-Acetylcy steine and Metamizole may falsely depress this assay. Reference Range HDL <40 mg/dL Low HDL Cholesterol HDL >or= 60 mg/dL High HDL Cholesterol Serum or plasma cholesterol in VLDL measurement (mass/volume)Ordered By: Dr. Doran on 06-26-2022 Cholesterol in VLDL [Mass/Vol] 36 mg/dL 5-40 [facility] Serum or plasma creatinine m easurement (mass/volume)Ordered By: Dr. Doran on 06-26-2022 Creatinine [Mass/Vol] 1.11 mg/dL 0.55-1.02 [facility] Comment on above: The validity of the calculated GFR & GFRAA in patients over 70 years has not been determined. Clinical correlation is essential. Serum or plasma low density lipoprotein (LDL) cholesterol measurement (mass/volume)Ordered By: Dr. Doran on 06-26-2022 Cholesterol in LDL [Mass/Vol] 80 mg/dL 0-130 [facility] Serum or plasma urea nitroge n measurement (mass/volume)Ordered By: Dr. Doran on 06-26-2022 Urea nitrogen [Mass/Vol] 20 mg/dL 7-18 [facility] Thin prep Papanicolaou smear with manual screeningOrdered By: Dr. Doran on 06-26-2022 Thin prep Papanicolaou smear with manual screening 15 U/L 15-37 [facility] Thin prep Papanicolaou smear with manual screening 4 5-15 [facility] Absolute lymphocyte countOrd ered By: Reese Shankar on 02-11-2022 Lymphocytes Auto (Unsp spec) [#/Vol] 1.50 10*3/uL 0.83-4.51 [facility] Basophil percentageOrdered B y: Reese Shankar on 02-11-2022 Basophils/100 WBC (Bld) 0.4 % 0-1 [facility] Chloride [Moles/Vol] 102 mmol/L 98-107 [facility] Eosinophils/100 WBC (Bld) 1.7 % 0-5 [facility] Glucose [Mass/Vol] 153 mg/dL 74-106 [facility] Comment on above: Fasting Glucose resu lt greater than or equal to 126 mg/dL suggests DIABETES MELLITUS per A.D.A. criteria. Neutrophils (Bld) [#/Vol] 10.0 10*3/uL 2.0-7.7 [facility] Neutrophils/100 WBC (Bld) 79.1 % 47-70 [facility] Potassium [Moles/Vol] 3.9 mmol/L 3.5-5.1 [facility] Sodium [Moles/Vol] 138 mmol/L 136-145 [facility] WBC (Bld) [#/Vol] 12.7 10*3/uL 4.4-11.0 [facility] Blood erythrocytes count (nu mber/volume)Ordered By: Reese Shankar on 02-11-2022 RBC (Bld) [#/Vol] 4.24 10*6/uL 4.2-5.4 [facility] Blood hemoglobin measurement (mass/volume)Ordered By: Reese Shankar on 02-11-2022 Hemoglobin (Bld) [Mass/Vol] 12.8 g/dL 12.0-15.0 [facility] Blood lymphocytes/100 leukoc ytesOrdered By: Reese Shankar on 02-11-2022 Lymphocytes/100 WBC (Bld) 11.8 % 19-41 [facility] Blood monocytes/100 leukocyt esOrdered By: Reese Shankar on 02-11-2022 Monocytes/100 WBC (Bld) 6.7 % 0-10 [facility] Blood platelet mean volumeOr dered By: Reese Shankar on 02-11-2022 Platelet mean volume (Bld) [Entitic vol] 11.0 fL 6.2-12.0 [facility] Determination of erythrocyte mean corpuscular volume (MCV)Ordered By: Reese Shankar on 02-11-2022 MCV (RBC) [Entitic vol] 91.7 fL 81-99 [facility] Hematocrit Auto (Bld) [Volum e fraction]Ordered By: Reese Shankar on 02-11-2022 Hematocrit (Bld) [Volume fraction] 38.9 % 37-47 [facility] INR in Blood by Coagulation assayOrdered By: Reese Shankar on 02-11-2022 INR Coag (Bld) [Relative time] 2.7 {INR} [facility] Laboratory - Chemistry and C hemistry - challengeOrdered By: Reese Shankar on 02-11-2022 CO2 [Moles/Vol] 26.0 mmol/L 21.0-32.0 [facility] Magnesium [Mass/Vol] 2.2 mg/dL 1.6-2.6 [facility] Urea nitrogen/Creatinine [Mass ratio] 18.5 mg/mg 10-20 [facility] Laboratory - CoagulationOrde red By: Reese Shankar on 02-11-2022 PT Coag (PPP) [Time] 28.0 s 11.7-14.9 [facility] Laboratory - Hematology and Cell countsOrdered By: Reese Shankar on 02-11-2022 Erythrocyte distribution width (RBC) [Entitic vol] 43.5 fL 35.1-43.9 [facility] Erythrocyte distribution width (RBC) [Ratio] 12.9 % 11.6-14.6 [facility] Immature granulocytes/100 WBC (Bld) 0.300 % 0.0-0.9 [facility] Comment on above: IG% - Immature Granu locytes (promyelocytes, myelocytes and metamyelocytes) > 1% indicates that a LEFT SHIFT is Present. MCH (RBC) [Entitic mass] 30.2 pg 27.0-32.0 [facility] Nucleated RBC/100 WBC (Bld) [Ratio] 0 % 0-5 [facility] MCHC Auto (RBC) [Mass/Vol]Or dered By: Reese Shankar on 02-11-2022 MCHC (RBC) [Mass/Vol] 32.9 g/dL 32-36 [facility] No Panel InformationOrdered By: Reese Shankar on 02-11-2022 Estimated Creatinine Clearance Calc 19.31 ml/min [facility] Estimated GFR (MDRD) Amer 36 mL/min >60 [facility] Comment on above: GFR Calc Estimated GFR (MDRD) Non-Af Amer 30 mL/min >60 [facility] Comment on above: Non- GFR Calc Troponin I High Sensitivity 13 pg/mL 3.0-54.0 [facility] Comment on above: Please Note: New Evon t Units and Gender Specific Reference Ranges. For more information see Policy Stat Procedure [place] High Sensitivity Troponin (TNIH) and attachments. Platelets bldOrdered By: Dontae Shankar on 02-11-2022 Platelets (Bld) [#/Vol] 286 10*3/uL 150-450 [facility] Serum or plasma calcium viktoria urement (mass/volume)Ordered By: Reese Shankar on 02-11-2022 Calcium [Mass/Vol] 9.1 mg/dL 8.5-10.1 [facility] Serum or plasma creatinine m easurement (mass/volume)Ordered By: Reese Shankar on 02-11-2022 Creatinine [Mass/Vol] 1.73 mg/dL 0.55-1.02 [facility] Comment on above: The validity of the calculated GFR & GFRAA in patients over 70 years has not been determined. Clinical correlation is essential. Serum or plasma urea nitroge n measurement (mass/volume)Ordered By: Reese Shankar on 02-11-2022 Urea nitrogen [Mass/Vol] 32 mg/dL 7-18 [facility] Thin prep Papanicolaou smear with manual screeningOrdered By: Reese Shankar on 02-11-2022 Thin prep Papanicolaou smear with manual screening 10 5-15 [facility] CNPNon 10-14-2019 SUZIN Telephone (AGCARDPOLulú ) LISAEZRA Snell ([id number]) 1935 F Date Time Provider Department 10/14/19 [...] ACOSTA on 10/14/19 [facility] CNPTOBelén 10-12-2019 CNPTOUTREACH Patient Outreach ([facility]) EZRA GONZALEZ ([id number]) 1935 F Date Time Provider Department 7/14/20 SWATHI CRUZ (LEE) [facility] During your visit today, we recorded the following information about you: Swathi Cruz LPN, LPN 10/12/2019 10:48 AM Signed ED Follow Up: Patient discharged from [facility] ED on 10/11/2019 for Fall, rib fracture [...] Of Care [4074] Cmt: ED [facility] 10/11/2019 (Pt. has new pcp) Reason For [...] [facility] OBSOLETEon 10-12-2019 OBSOLETE Refill ([facility]) LISAEZRA ([id number]) 1935 F Date Time Provider Department 10/12/19 [...] Visit date not found Patient Phone numbers: [phone] (home) Request is for script(s) to be [...] [facility] PRO[facility] 10-12-2019 PROGRESS HNO ID: [id number] Author: Swathi Cruz LPN Service: ? Author Type: LICENSED NURSE Type: Progress Notes Filed: 10/12/2019 10:48 AM Note Text: ED Follow Up: Patient discharged from [facility] ED on 10/11/2019 for Fall, rib fracture Outreach # 1, Contact Made. Patient was called at this time. Patient verified by name and . Patient stated she has a new PCP Dr. Sada Doran who she will follow up with. Swathi Cruz LPN 10/12/2019 10:45 AM [facility] CNPMari 10-06-2019 JAROD Telephone ([facility]) EZRA GONZALEZ ([id number]) 1935 F Date Time Provider Department 10/06/19 [...] Date: 12/30/16 +++Patient gets lab draw at [facility] in [place] [phone]+++ PT INR Date Value Ref Range Status [...] (HCC) [I48.91] Order(s):PROTHROMBIN TIME/PT [SQPT] Order #: [id number] Prescriptions as of 10/06/2019 Sig: METOPROLOL SUCCINATE [...] (PHARMACIST)ESTEFANIA on 10/06/19 [facility] Bao 09-22-2019 CNPN Telephone ([facility]) EZRA GONZALEZ ([id number]) 1935 F Date Time Provider Department 09/22/19 JO PEREZ [facility] During your visit today, we recorded the following information about you: Maryanne Gomez MA 09/22/2019 10:38 AM Signed Patient is aware that you are going to be leaving the practice. She states she recently moved down to [place] and wants to find a physician closer to her Is there anyone that you recommend Maryanne Gomez MA 09/22/2019 10:37 AM Jo Perez MD 09/22/2019 12:[address] barker at [facility] Alicia Park LPN 09/22/2019 1:21 PM [...] Fully Assessed Reason for Visit: Patient Question [6068] Cmt: Physicans in [place] Prescriptions as of 09/22/2019 Sig: METOPROLOL [...] 09/22/19 [facility] CNPTOUTREACHon 09-22-2019 [facility] Patient Outreach ([facility]) EZRA GONZALEZ ([id number]) 1935 F Date Time Provider Department 09/22/19 MARYANNE GOMEZ) [facility] During your visit today, we recorded the following information about you: Maryanne Gomez MA 09/22/2019 10:34 AM Signed [facility] Provider Action/FYI: Patient doing well Contact made with patient: Yes Hi my name is Maryanne Gomez MA and I am calling from the [facility] on behalf of your PCP. I'm [...] Status:Closed by MARYANNE GOMEZ on 09/22/19 Normal [facility] PROGRESSon 09-22-2019 PROGRESS HNO ID: [id number] Author: Maryanne Gomez Service: ? Author Type: [employer] Type: Progress Notes Filed: 09/22/2019 10:34 AM Note Text: HIGH RISK [facility]RONIC DISEASE [facility] Provider Action/FYI: Patient doing well Contact made with patient: Yes Hi my name is Maryanne Gomez MA and I am calling from the [facility] on behalf of your PCP. I'm [...] Maryanne Gomez MA 09/22/2019 10:33 AM Normal [facility] CNPTOUTREACHon 09-21-2019 [facility] Patient Outreach ([facility]) LISAEZRA ([id number]) 1935 F Date Time Provider Department 09/21/19 JO PEREZ [facility] During your visit today, we recorded the following information about you: Alicia Park LPN 09/21/2019 10:43 AM Signed H[facility] RISK [facility] Provider Action/FYI: Contact made with patient: No - Left 1st message - Hi my name is Alicia Park LPN and I am calling from the [facility] on behalf of your PCP, Jo [...] [facility] PRO[facility]ESS[facility] 09-21-2019 PROGRESS HNO ID: [id number] Author: Alicia Bush) Vivian Service: ? Author Type: LICENSED NURSE Type: Progress Notes Filed: 09/21/2019 10:43 AM Note Text: HIGH RISK CHRONIC DISEASE [facility]ING [facility] Provider Action/FYI: Contact made with patient: No - Left 1st message - Hi my name is Alicia Park LPN and I am calling from the [facility] on behalf of your PCP, Jo [...] [facility] CNPMari 09-02-2019 CNPN [place]phone ([place]) EZRA GONZALEZ ([id number]) 1935 F Date Time Provider Department 09/02/19 [...] Date: 12/30/16 +++Patient gets lab draw at [facility] in [place] [phone]+++ PT INR Date Value Ref Range Status [...] Patient will have next INR drawn at [facility] in [place] next month. Order placed. Estefania Cevallos PharmD [...] (HCC) [I48.91] Order(s):PROTHROMBIN TIME/PT [SQPT] Order #: [id number] PROTHROMBIN TIME/PT [SQPT] Order #: [id number] STANDING Prescriptions as of 09/02/2019 Sig: METOPROLOL [...] (PHARMACIST)ESTEFANIA on 09/03/19 [facility]REACHon [facility] EZRA GONZALEZ ([id number]) 1935 F Date Time Provider Department 08/12/19 MARYANNE GOMEZ) [facility] During your visit today, we recorded the following information about you: Maryanne Gomez MA 08/12/2019 9:39 AM Signed HIGH RISK CHRONIC DISEASE [facility] Provider Action/FYI: Left 2nd message, will add patient to schedule for a month Contact made with patient: No, Left 2nd message - Hi my name is Maryanne Gomez MA and I am calling from the [facility] on behalf of your PCP, Jo [...] [facility] PRO[facility] 08-12-2019 PROGRESS HNO ID: [id number] Author: Maryanne Perea) Miguel Service: ? Author Type: [employer] Type: Progress Notes Filed: 08/12/2019 9:39 AM Note Text: HIGH RISK CHRONIC DISEASE MONITORING [facility] Provider Action/FYI: Left 2nd message, will add patient to schedule for a month Contact made with patient: No, Left 2nd message - Hi my name is Maryanne Gomez MA and I am calling from the [facility] on behalf of your PCP, Jo [...] Maryanne Gomez MA 08/12/2019 9:38 AM [facility] CNPTOUTREACHochastity 08-11-2019 [facility] Patient Outreach ([facility]) EZRA GONZALEZ ([id number]) 1935 F Date Time Provider Department 08/11/19 MARYANNE GOMEZ) [facility] During your visit today, we recorded the following information about you: Maryanne Gomez MA 08/11/2019 10:02 AM Signed HIGH RISK CHRONIC DISEASE MONITORING [facility] Provider Action/FYI: Left message, will add to schedule for tomorrow Contact made with patient: No - Left 1st message - Hi my name is Maryanne Gomez MA and I am calling from the [facility] on behalf of your PCP, Jo [...] [facility] PRO[facility] 08-11-2019 PROGRESS HNO ID: [id number] Author: Maryanne Gomez Service: ? Author Type: [employer] Type: Progress Notes Filed: 08/11/2019 10:02 AM Note Text: HIGH RISK CHRONIC DISEASE MONITORING [facility] Provider Action/FYI: Left message, will add to schedule for tomorrow Contact made with patient: No - Left 1st message - Hi my name is Maryanne Gomez MA and I am calling from the [facility] on behalf of your PCP, Jo [...] Maryanne Gomez MA 08/11/2019 10:01 AM [facility] OBSOLETEon 08-05-2019 OBSOLETE Refill (AGCARDPOB) EZRA GONZALEZ ([id number]) 1935 F Date Time Provider Department 08/05/19 MICHAEL LUO Brittanie AGCARDPOB During your visit today, we recorded [...] 08/05/19 [facility] CNPTOUTREACHon 08-04-[facility] ([facility]) EZRA GONZALEZ ([id number]) 1935 F Date Time Provider Department 08/04/19 MARYANNE GOMEZ) [facility] During your visit today, we recorded the following information about you: Maryanne Gomez MA 08/04/2019 11:03 AM Signed HIGH RISK CHRONIC DISEASE MONITORING [facility] Provider Action/FYI: Patient has no questions or concerns at this time Contact made with patient: Yes Hi my name is Maryanne Gomez MA and I am calling from the [facility] on behalf of your PCP. I'm [...] Status:Closed by MARYANNE GOMEZ on 08/04/19 [facility] PROGRESSon 08-04-2019 PROGRESS HNO ID: [id number] Author: Maryanne Gomez Service: ? Author Type: [employer] Type: Progress Notes Filed: 08/04/2019 11:03 AM Note Text: HIGH RISK CHRONIC DISEASE MONITORING [facility] Provider Action/FYI: Patient has no questions or concerns at this time Contact made with patient: Yes Hi my name is Maryanne Gomez MA and I am calling from the [facility] on behalf of your PCP. I'm [...] today in the [facility] Outreach.) Maryanne Gmoez MA 08/04/2019 11:03 AM [facility] OBSOLETEon 08-03-2019 OBSOLETE Refill (AGCARDPOB) EZRA GONZALEZ ([id number]) 1935 F Date Time Provider Department 08/03/19 [...] CNP on 08/03/19 [facility] CNPTOUTREACHon 07-28-2019 [facility] ([facility]) EZRA GONZALEZ ([id number]) 1935 F Date Time Provider Department 07/28/19 MARYANNE GOMEZ) [facility] During your visit today, we recorded the following information about you: Maryanne Gomez MA 07/28/2019 3:18 PM Signed HIGH RISK CHRONIC DISEASE [facility]ING [facility] Provider Action/FYI: Patient wants to [...] MA and I am calling from the [facility] on behalf of your PCP. I'm [...] Please report her afib episode to her atlassian administrator (you can just route this chart to [...] use of insulin (HCC) [E11.9] Order(s):HGB A1C [LVLUE0P] Order #: [id number] FUTURE LIPID PANEL BASIC [SQLIPB] Order #: [id number] FUTURE COMP METABOLIC PANEL [SQCMP] Order #: [id number] FUTURE ALBUMIN QUANT 24H UR [SQUALBQ] Order #: [id number] FUTURE Prescriptions as of 07/28/2019 Sig: SIMVASTATIN [...] OBSOLETEon 07-28-2019 OBSOLETE Refill (AGCARDHWG) EZRA GONZALEZ ([id number]) 1935 F Date Time Provider Department 07/28/19 [...] [facility] 07-28-2019 PROGRESS HNO ID: [id number] Author: Maryanne Gomez Service: ? Author Type: [employer] Type: Progress Notes Filed: 07/28/2019 3:18 PM [...] [facility] PROGRESS HNO ID: [id number] Author: Jo Perez Service: ? 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 Author Type: [employer] Type: Progress Notes Filed: 07/28/2019 3:18 PM Note Text: HIGH RISK CHRONIC DISEASE MON[facility]ORING [facility] Provider Action/FYI: Patient wants to [...] MA and I am calling from the [facility] on behalf of your PCP. I'm [...] Maryanne Gomez MA 07/28/2019 2:21 PM [facility] OBSOLETEon 07-14-2019 OBSOLETE Refill (AGMPC) EZRA GONZALEZ ([id number]) 1935 F Date Time Provider Department 07/14/19 [facility] During your visit today, we recorded the [...] Visit date not found Patient Phone numbers: [phone] (home) Request is for script(s) to be [...] [facility] OBSOLETE Refill (AGCARDPOB) EZRA GONZALEZ ([id number]) 1935 F Date Time Provider Department 07/14/19 [...] Status:Closed by RICKEY CHAVARRIA MD on 07/14/19 [facility] 07-12-2019 CNPN Telephone ([employer]) EZRA GONZALEZ ([id number]) 1935 F Date Time Provider Department 07/12/19 [facility] During your visit today, we [...] Date: 12/30/16 +++[facility] gets [facility] [place] in [place] [phone]+++ PT INR Date Value Ref Range Status [...] (HCC) [I48.91] Order(s):PROTHROMBIN TIME/PT [SQPT] Order #: [id number] Prescriptions as of 07/12/2019 Sig: LISINOPRIL 5 [...] [facility] OBSOLETEon 07-05-2019 OBSOLETE Refill (AGMPC) LISAEZRA ([id number]) 1935 F Date Time Provider Department 07/05/19 [...] Patient next appointment: 07/28/2019 Patient Phone numbers: [phone] (home) Request is for script(s) to be escript to pharmacy. MYRIAM Lovelace [place] 07/13/2019 11:23 AM Signed Pharmacy called to say Ranitidine was recalled and Pepcid is on backorder. Asked what we want to do as an alternative. Spoke with Dr. Peerz and she said Omeprazole 20 mg once a day. Asked the pharmacy to either call the office or the patient once Pepcid is no longer on backorder per Dr. Perez. 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] Atrial fibrillation (HCC)- ablation 2012 [I48.* On anticoagulant therapy [Z79.01] Spinal stenosis [...] PEREZ on 07/01/19 [facility] CNPMari 06-10-2019 CNPN Telephone ([facility]) EZRA GONZALEZ ([id number]) 1935 F Date Time Provider Department 06/10/19 JO PEREZ [facility] During your visit today, we recorded the [...] LPN on 06/10/19 [facility] CNPN Telephone ([employer]) EZRA GONZALEZ ([id number]) 1935 F Date Time Provider Department 06/07/19 [...] Date: 12/30/16 +++Patient gets lab draw at [facility] in [place] [phone]+++ PT INR Date Value Ref Range Status [...] (HCC) [I48.91] Order(s):PROTHROMBIN TIME/PT [SQPT] Order #: [id number] Prescriptions as of 06/07/2019 Sig: COQ-10 ORAL [...] 06/07/19 [facility]ao 06-04-2019 CNPN Telephone ([employer]) EZRA GONZALEZ ([id number]) 1935 F Date Time Provider Department 06/04/19 [...] by BHAKTI (PHARMACIST)ESTEFANIA on 06/04/19 [facility] Inocencia 05-13-2019 CNOV Office Visit (AGHWW1 ) EZRA GONZALEZ ([id number]) 1935 F Date Time Provider Department 05/13/19 4:00 PM CRUZ ASNCHEZ AGHWW1 During your visit today, we recorded the following information about you: Respiration Weight Height 18/minute 82.6 kg 1.613 m Cruz Sanchez MD 05/13/2019 5:00 PM Signed HISTORY OF PRESENT ILLNESS: Ezra Gonzalez is an 83-year-old fisbm-xrvj-xtqksjfr female who returns for follow-up right shoulder [...] associated with diabetes mellitus (HCC) - [place] (myocardial infarction) 2006 - On anticoagulant therapy [...] R Shoulder CARDIOVASCULAR: Peripheral venous insufficiency, h/o [place], HTN, Coronary Arteriosclerosis, A-Fib, Cardiac Ablation MSK: [...] [Z98.890] Order(s):Large Joint Arthro/Inj: R subacromial bursa [HTD219] Order #: [id number] betamethasone acetate-betamethasone sodium phosphate 12 mg injection [...] CRUZ SANCHEZ MD on 05/13/19 [facility] PROGRESSon 05-13-2019 PROGRESS HNO ID: [id number] Author: Cruz Sanchez Service: ? 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) EZRA GONZALEZ ([id number]) 1935 F Date Time Provider Department 04/27/19 [...] coronary artery stent placement- 2006 Atherosclerosis of [place] Coronary Artery of [place] Heart Without Angina Pectoris Asymptomatic Cholelithiasis History [...] Hebert Chiropractor 05/19/2015 End 05/19/15 ; Patito Gonzlaez Podiatry 05/19/2015 End 05/19/15 Nirmal Mcfadden Justo COMPLIANCE CLERK 07/07/2017 End 07/07/17 ; Mohan Álvarez Ophthalmology 07/07/2017 End 07/07/17 Rickey Duffy Bishop Cardiology 09/30/2018 End 09/30/18 ; End of Live Planning discussed including patients advanced directive wishes: Yes I am willing to follow advanced directives. Mini-Cog Patient asked to remember the following three words: Banana, Zeba and Chair Visuospatial/Executiv e Functioning: Clock drawin/2 [...] No history of dysuria, frequency or incontinence INSURANCE WRITER: Negative for abnormal vaginal bleeding, abnormal vaginal [...] with supplements or by diet (goal of 9874-9589 mg/day - Discussed need and benefit for [...] arise. - Discussed diabetic education issues of mcc diabetic complications, hypoglycemic symptoms, hyperglycemic symptoms, diet, [...] prepared fairly simply. If you were a srwo-ufy-rpsmyozd eater, focus on the meat more than [...] your kitchen up for success. Always have oxb-beyc-lzbwxgqc foods on hand ready to eat. Remove [...] unspecified type [R19.7] Order(s):ADMIN OF INFLUENZA VACCINE [[id number]] Order #: [id number]: 1 INFLUENZA SEASONAL HIGH DOSE AGE 65+ [[id number]] Order #: [id number] metFORMIN (GLUCOPHAGE) 500 mg tabletTake 1 tablet by mouth daily with breakfast.Disp: Rfl: HGB A1C [BETQI4K] Order #: [id number] FUTURE COMP METABOLIC PANEL [SQCMP] Order #: [id number] FUTURE Prescriptions as of 04/27/2019 Sig: COQ-10 [...] prepared fairly simply. If you were a wvsl-szb-hlcpgazj eater, focus on the meat more than [...] your kitchen up for success. Always have pnd-wtrc-tnicpnzk foods on hand ready to eat. Remove [...] sprinkles Sun-dried tomatoes Reduced-sodium soy sauce or [facility] sauce Artichoke hearts Sugar substitutes Olives Oils [...] [facility] PROGRESSon 04-27-2019 PROGRESS HNO ID: [id number] Author: Jo Perez Service: ? Author Type: [...] coronary artery stent placement- 2006 Atherosclerosis of [place] Coronary Artery of [place] Heart Without Angina Pectoris Asymptomatic Cholelithiasis History [...] Gonzalez Podiatry 05/19/2015 End 05/19/15 Nirmal Kemp COMPLIANCE CLERK 07/07/2017 End 07/07/17 ; Mohan Álvarez Ophthalmology 07/07/2017 End 07/07/17 Rickey Chavarria Cardiology 09/30/2018 End 09/30/18 ; End of Live Planning discussed including patients advanced directive wishes: Yes I am willing to follow advanced directives. 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, hypoglycemic symptoms, hyperglycemic symptoms, [...] screening - Lipid panel Jo Perez MD [facility] 03-18-2019 [facility] Office Visit (AGHWW1 ) EZRA GONZALEZ ([id number]) 1935 F Date Time Provider Department 03/18/19 4:00 PM CRUZ SANCHEZ AGHWW1 During your visit today, we recorded the following information about you: Respiration Weight Height 17/minute 80.7 kg 1.651 m Cruz Sanchez MD 03/18/2019 7:00 PM Signed HISTORY OF PRESENT ILLNESS: Ezra Gonzalez is an 83-year-old fgoaf-ighb-cvdkxdej female who returns for follow-up right shoulder [...] and strength with continued physical therapy in [place]. 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 Author Type: Physician Type: Progress Notes Filed: 03/18/2019 7:00 PM Note Text: HISTORY OF PRESENT ILLNESS: Ezra Gonzalez is an 83-year-old ecmpl-kjmj-evfhciwk female who returns for follow-up right shoulder [...] and strength with continued physical therapy in [place]. She is currently using the yellow to [...] associated with diabetes mellitus (HCC) - [place] (myocardial infarction) 2006 - On anticoagulant therapy [...] [facility] OBSOLETEon 03-17-2019 OBSOLETE Refill ([facility]) EZRA GONZALEZ ([id number]) 1935 F Date Time Provider Department 03/17/19 VIPUL BUCHANAN ([facility]) [facility] During your visit today, we [...] Visit date not found Patient Phone numbers: [phone] (home) Request is for script(s) to be [...] [facility] O[facility] Refill ([facility]C) EZRA GONZALEZ ([id number]) 1935 F Date Time Provider Department 03/17/19 JO PEREZ [facility] During your visit today, we recorded the following information about you: Anne Marie Morrison 03/18/2019 7:41 AM Signed Pharmacy faxed requesting the following refill. Pending Prescriptions Disp Refills RANITIDINE 150 MG TABLET 90 tablet 0 Sig: TAKE ONE TABLET BY MOUTH EVERY DAY SHAHEEN: Yes Last refill: 12/16/2018 Patient last appointment: 09/30/2018 Patient next appointment: 04/02/2019 Patient Phone numbers: [phone] (home) Request is for script(s) to be [...] CNOV Office Visit (AGHWW1 ) EZRA GONZALEZ ([id number]) 1935 F Date Time Provider Department 02/04/19 1:30 PM CRUZ SANCHEZ AGHWW1 During your visit today, we recorded the following information about you: Respiration Weight Height 17/minute 80.7 kg 1.676 m Cruz Sanchez MD 02/04/2019 4:40 PM Signed HISTORY OF PRESENT ILLNESS: Ezra Gonzalez was provided orthopedic evaluation regarding right shoulder complaints. Patient is an 83-year-old sswpa-cpnm-ufbaxytl female who is previously known status post [...] associated with diabetes mellitus (HCC) - [place] (myocardial infarction) 2006 - On anticoagulant therapy [...] conditions CARDIOVASCULAR: A-Fib, Coronary Arteriosclerosis, HTN, [place], Peripheral Venous Inufficiency, MSK: Degenerative Joint Disease, [...] GENERAL 3V OR MORE AP/TRUE AP/OTHER RT [[id number]] Order #: [id number] CONSULT TO PHYSICAL THERAPY (AG) [[id number]] Order #: [id number]: 1 DRAIN/INJECT LARGE JOINT/BURSA [[id number]] Order #: [id number] [] betamethasone acetate-betamethasone sodium phosphate 12 mg [...] [facility] PROGRESSon 02-04-2019 PROGRESS HNO ID: [id number] Author: Cruz Sanchez Service: ? Author Type: Physician Type: Progress Notes Filed: 02/04/2019 4:40 PM Note Text: HISTORY OF PRESENT ILLNESS: Ezra Gonzalez was provided orthopedic evaluation regarding right shoulder complaints. Patient is an 83-year-old iyiqi-zmdt-prtlgcok female who is previously known status post [...] associated with diabetes mellitus (HCC) - [place] (myocardial infarction) 2006 - On anticoagulant therapy [...] conditions CARDIOVASCULAR: A-Fib, Coronary Arteriosclerosis, HTN, [place], Peripheral Venous Inufficiency, MSK: Degenerative Joint Disease, [...] OBSOLETEon 01-21-2019 OBSOLETE Refill (AGCARDPOB) EZRA GONZALEZ ([id number]) 1935 F Date Time Provider Department 01/21/19 VALERIO, MICHAEL A AGCARDPOB During your visit today, we recorded the following information about you: Katya LEE Huggins 01/21/2019 11:45 AM Signed Patient's request for [...] Prescription(s) as above. Please process accordingly. Katya LEE Huggins Allergies As of Date: 01/21/2019 Noted Allergy Reaction CODEINE 03/20/2015 16 - Unknown CRESTOR (ROSUVASTATIN) 03/20/2015 14 - Other: See Comments Comments: Myalgias DEMEROL (MEPERIDINE) 03/20/2015 8 - GI Upset LATEX 03/20/2015 2 - Rash LIPITOR (ATORVASTATIN) 03/20/2015 14 - Other: See Comments Comments: Myalgias Date Reviewed: 11/27/2018 Reviewed by: Vika ([facility]) Brian - Fully Assessed Reason for Visit: [...] 01/21/19 [facility] OBSOLETE Refill (AGMPC) LISAEZRA ([id number]) 1935 F Date Time Provider Department 01/21/19 [...] Patient next appointment: 04/02/2019 Patient Phone numbers: [phone] (home) Request is for script(s) to be [...] Myalgias Date Reviewed: 11/27/2018 Reviewed by: Vika ([facility]) Brian - Fully Assessed Reason for Visit: [...] [facility] CNTHERAPYon 12-14-2018 CNTHERAPY OT/PT/Speech Visit (AKSTWP) LISAEZRA Alis ([id number]) 1935 F Date Time Provider Department 12/14/18 11:00 AM ANOOP COLLAZO (AUD) AKSTWP Date Time Provider Department Center 12/14/2018 11:00 AM [id number] COLLAZO*AKSTWP NOLAN LONG Reason for Visit: Difficulty [...] Myalgias Date Reviewed: 11/27/2018 Reviewed by: Vika CastroHoly [facility]emer [facility] SystemFinesse Torres - Fully Assessed Prescriptions as of [...] Jazmyn Hinson, AUD 12/14/2018 4:44 PM Signed [facility] OUT[facility] AUDIOLOGIC EVALUATION REPORT 12/14/2018 Page 1 of 3 Patient: Ezra Gonzalez : 1935 Referred by: Jo Perez (PCP: Yazmin) Referred for: Evaluation of suspected change in hearing, tinnitus, or balance. Referral documented: In an order in [facility]: OTHER ORDERS: : CONSULT TO AUDIOLOGY FOR DIAGNOSTIC TESTING [9003] (Order [id number]) Patient's major complaints: Progressively increasing difficulty in [...] --Pure tone audiometry using insert earphones demonstrates tjsm-fy-ovpymruwqw severe level sensorineural type hearing loss, worse [...] up w/ referring physician. Report routed via [employer] inbox to Dr. Perez on 12/14/2018 -Re-evaluation [...] Audiogram can be also be viewed in [employer]:Audiology: Audiometry. OAE and tympanometry results can be viewed in [employer] Scanned [employer]. RIGHT EAR Hearing Sensitivity: 250-500HZ: WNL; 750-2000Hz:mild; 3000-8000Hz: moderate-severe SNHL Word Recognition Score (order by difficulty 10 word list): Excellent (90%) at slt amplified loudness (fair at conversational loudness) Tympanometry: Type A : Normal ME function. Otoacoustic Emissions results: 750-3000Hz: WNL; 8221-2505: reduced; 8000Hz: absent. LEFT EAR Hearing Sensitivity: 250-500HZ: WNL; 750-3000Hz: moderate; 6000-8000Hz: severe SNHL Word Recognition Score (order by difficulty 10 word list): Excellent (90%) at amplified loudness (poor at conversational loudness) Tympanometry: Type A : Normal ME function. Otoacoustic Emissions results: 750-1000Hz: absent; 8914-1152: reduced; 6000-8000Hz: absent. William Hinson. Rough Planer Tender 12/14/2018 3:30 PM Ezra Gonzalez : 1935 [...] during this visit: Audiometry Letter Text Normal [facility] OBSOLETEon 12-14-2018 OBSOLETE Refill ([facility]) EZRA GONZALEZ ([id number]) 1935 F Date Time Provider Department 12/14/18 JO PEREZ [facility] During your visit today, we recorded the following information about you: Robert Diaz CMA 12/16/2018 1:00 PM Signed Patient called requesting the following refill. Pending Prescriptions Disp Refills RANITIDINE 150 MG TABLET 90 tablet 0 Sig: TAKE ONE TABLET BY MOUTH EVERY DAY SHAHEEN: Yes Last refill: 09/16/2018 Patient last appointment: 10/20/2018 Patient next appointment: 04/02/2019 Patient Phone numbers: [phone] (home) Request is for script(s) to be [...] Myalgias Date Reviewed: 11/27/2018 Reviewed by: Vika CastroHoly Redeemer Health SystemFinesse Torres - Fully Assessed Reason for Visit: [...] [facility] PRO[facility] 12-14-2018 PROGRESS HNO ID: [id number] Author: JAZMYN Hinson (Aud) Service: ? Author Type: Rough Planer Tender Type: Progress Notes Filed: 12/14/2018 4:44 PM Note Text: [facility] OUT[facility]IENT AUD[facility] AUDIOLOGIC EVALUATION REPORT 12/14/2018 Page 1 of 3 Patient: Ezra Gonzalez : 1935 Referred by: Jo Perez (PCP: Yazmin) Referred for: Evaluation of suspected change in hearing, tinnitus, or balance. Referral documented: In an order in [facility]: OTHER ORDERS: : CONSULT TO AUDIOLOGY FOR DIAGNOSTIC TESTING [9003] (Order [id number]) Patient's major complaints: Progressively increasing difficulty in [...] --Pure tone audiometry using insert earphones demonstrates qadc-jd-zqyfftmrfb severe level sensorineural type hearing loss, worse [...] up w/ referring physician. Report routed via [employer] inbox to Dr. Perez on 12/14/2018 -Re-evaluation [...] Audiogram can be also be viewed in [employer]:Audiology: Audiometry. OAE and tympanometry results can be viewed in [employer] Scanned Documents. RIGHT EAR Hearing Sensitivity: 250-500HZ: WNL; 750-2000Hz:mild; 3000-8000Hz: moderate-severe SNHL Word Recognition Score (order by difficulty 10 word list): Excellent (90%) at slt amplified loudness (fair at conversational loudness) Tympanometry: Type A : Normal ME function. Otoacoustic Emissions results: 750-3000Hz: WNL; 5718-2883: reduced; 8000Hz: absent. LEFT EAR Hearing Sensitivity: 250-500HZ: WNL; 750-3000Hz: moderate; 6000-8000Hz: severe SNHL Word Recognition Score (order by difficulty 10 word list): Excellent (90%) at amplified loudness (poor at conversational loudness) Tympanometry: Type A : Normal ME function. Otoacoustic Emissions results: 750-1000Hz: absent; 3989-4999: reduced; 6000-8000Hz: absent. William Hinson. Rough Planer Tender 12/14/2018 3:30 PM Ezra Gonzalez : 1935 Page 3 of 3 GARCÍA Abbreviation Definition Degree of hearing sensitivity dB range WNL within normal limits WNL 0 - 20 SNHL sensorineural hearing loss Mild 20-40 CHL conductive hearing loss Moderate 40-55 MHL mixed hearing loss Moderately-Severe 55-70 ME middle ear Severe 70-90 OAE Distortion Product Otoacoustic Emissions Profound 90 + TM tympanic membrane Normal [facility] CNOVon 11-27-2018 CNOV Office Visit (AGCARDHWW) EZRA GONZALEZ ([id number]) 1935 F Date Time Provider Department 11/27/18 11:00 AM RICKEY CHAVARRIA AGCARDHWW During your visit today, we recorded the following information about you: Pulse Respiration Blood pressure Weight 66/minute 18/minute 124/70 80.7 kg Height 1.575 m Vika MYRIAM Torres 11/27/2018 11:00 AM Signed Patient has no cardiac complaints today. Vika Chavarria MD 11/27/2018 11:24 AM Signed PRIMARY CARE PHYSICIAN: Jo Perez MD [id number] [facility] [address] [place] [address] HISTORY OF PRESENT ILLNESS: Ms. Gonzalez is [...] again. 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 zEra denies any active cardiac symptoms. Specifically, the [...] of the time was spent in direct, [id number], contact with the patient for management and counseling. 1. Essential hypertension - ICD9: 401.9, ICD10: I10 (primary diagnosis) 2. Obesity, Class I, BMI 30-34.9 - ICD9: 278.00, ICD10: E66.9 3. Mixed hyperlipidemia - ICD9: 272.2, ICD10: E78.2 4. Paroxysmal atrial fibrillation (HCC) - ICD9: 427.31, ICD10: I48.0 5. Chronic anticoagulation - ICD9: V58.61, ICD10: Z79.01 Rickey Chavarria M.D. FACC Referring Provider: SELF [[id number]] Allergies As of Date: 11/27/2018 Noted Allergy Reaction CODEINE 03/20/2015 16 - Unknown CRESTOR (ROSUVASTATIN) 03/20/2015 14 - Other: See Comments Comments: Myalgias DEMEROL (MEPERIDINE) 03/20/2015 8 - GI Upset LATEX 03/20/2015 2 - Rash LIPITOR (ATORVASTATIN) 03/20/2015 14 - Other: See Comments Comments: Myalgias Date Reviewed: 11/27/2018 Reviewed by: Vika CastroHoly Redeemer Health SystemFinesse Torres - Fully Assessed Reason for Visit: CARD Follow Up Annual [1232] Primary Visit Diagnosis:Essential hypertension [I10] Other Visit Diagnoses:Obesity, Class I, BMI 30-34.9 [E66.9] Mixed hyperlipidemia [E78.2] Paroxysmal atrial fibrillation (HCC) [I48.0] Chronic anticoagulation [Z79.01] Order(s):ECG B/O W INTERP (MED OFFICE) [ECG06] Order #: [id number] Prescriptions as of 11/27/2018 Sig: SIMVASTATIN 20 [...] has no cardiac complaints today. Vika Torres [facility] Disposition: Return in about 1 year (around 11/28/2019). Follow-up and Disposition History Recorded Letter Text Encounter Status:Closed by RICKEY CHAVARRIA MD on 11/27/18 [facility] PROGRESSon 11-27-2018 PROGRESS HNO ID: [id number] Author: Rickey Chavarria Service: ? Author Type: Physician Type: Progress Notes Filed: 11/27/2018 11:24 AM Note Text: PRIMARY CARE PHYSICIAN: Jo Perez MD [address] [place] [address] HISTORY OF PRESENT ILLNESS: Ms. Gonzalez is [...] again. 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 Ezra [...] of the time was spent in direct, [id number], contact with the patient for management and counseling. 1. Essential hypertension - ICD9: 401.9, ICD10: I10 (primary diagnosis) 2. Obesity, Class I, BMI 30-34.9 - ICD9: 278.00, ICD10: E66.9 3. Mixed hyperlipidemia - ICD9: 272.2, ICD10: E78.2 4. Paroxysmal atrial fibrillation (HCC) - ICD9: 427.31, ICD10: I48.0 5. Chronic anticoagulation - ICD9: V58.61, ICD10: Z79.01 Rickey Chavarria M.D. [facility] Normal [facility] BONE DENSITY STUDY BY XRAY 7 7080on 07-15-2017 BONE DENSITY STUDY BY XRAY [id number] Performed at [facility] APPROVED BY: Kemar Adams MD EXAMINATION: BONE MINERAL DENSITOMETRY (DEXA SCAN) EXAM DATE: 07/15/2017 09:43 CLINICAL INDICATION: 82-year-old postmenopausal female , follow-up osteoporosis screening. COMPARISON: DEXA scan 10/06/2013. DXA W-Endgame v.13.4 examination is performed on the lumbar [...] for Metabolic Bone Disease, a WHO Collaborating Mcdonald. This applies to men over 50 and [...] high risk for accelerated bone loss). Normal [facility] MAMMOGRAM SCREENING WITH CAD IF PERFORMEDon 06-27-2017 MAMMOGRAM SCREENING WITH CAD IF PERFORMED Performed at [facility] APPROVED BY: Lucas Garrido MD #[id number] - MAMMOGRAM SCREENING WITH CAD IF PERFORMEDBILATERAL DIGITAL SCREENING MAMMOGRAM WITH CAD WITH MEDIOLATERAL OBLIQUE CRANIOCAUDAL: 06/27/2017CLINICAL: Routine screening mammogram. Patient reports no breast problems. Comparison is made to exams dated: 07/22/2016 mammogram - [facility], 06/26/2016 mammogram, 06/09/2015 mammogram, and 04/01/2014 mammogram - [facility]. There are scattered fibroglandular elements in both breasts. Current study was also evaluated with a Computer Aided Detection (CAD) system. No significant masses, calcifications, or other findings are seen in either breast. There has been no significant interval change. IMPRESSION: NEGATIVEThere is no mammographic evidence of malignancy. A 1 year screening mammogram is recommended. The patient was notified of the results. Lucas meyrs/penrad:06/27/2017 11:38:04 Boom Conveyor Operator: Loan Summers)(M[facility] 1 or 2 Mammogram BI-RADS: 1 Negative Normal [facility] Otheron 02-03-2015 CONVERTED CLINICAL HISTORY OPERATIVE PROCEDURE: Colonoscopy CLINICAL INFORMATION: Screening [facility] CONVERTED ELECTRONIC SIGNATURE MO PATRICK M.D., PATHOLOGIST (Electronic signature on file) Final Signed Out: 02/03/2015 12:44 [facility] CONVERTED FINAL DIAGNOSIS FINAL DIAGNOSI S: A) COLON, ASCENDING, BIOPSIES - FRAGMENTS OF TUBULAR ADENOMA. B) COLON, RANDOM BIOPSIES - NO PATHOLOGIC ABNORMALITIES. [facility] CONVERTED GROSS DESCRIPTION GROSS DESCRIPTION: A) [...] totally submitted in cassette B x 3. SMS:[facility] CONVERTED ORDERING PROVIDER Ordering Provider: SHI LESTER [facility] Otheron 04-19-2010 CONVERTED ELECTRONIC SIGNATURE RAVINDER HAN, M.D., PATHOLOGIST (Electronic signature on file) Final Signed Out: 04/19/2010 14:33 [facility] CONVERTED FINAL DIAGNOSIS FINAL DIAGNOSI S: RIGHT SHOULDER, EXCISION - BONE AND ATTACHED CARTILAGE WITH DEGENERATIVE CHANGES. SYNOVIUM WITH NONSPECIFIC REACTIVE CHANGES AND FOCAL MILD CHRONIC INFLAMMATION. SPECIMEN: SHOULDER [facility] CONVERTED GROSS DESCRIPTION GROSS DESCRIPTION: Rt shoulder tissue The container is labeled right shoulder tissue. Received are portions of pink-montague soft tissue and red-montague bone measuring 3 x 3 x 1 cm in aggregate. Sample of soft tissue is submitted in cassette 1, sample of bone is submitted in cassette 2 following decal. SMS/lrs MICROSCOPIC DESCRIPTION: Slides reviewed. 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 SPECIMEN: FEMORAL HEAD [facility] CONVERTED GROSS DESCRIPTION GROSS DESCRIPTION: Left [...] decal. SMS:ATP:hlm MICROSCOPIC DESCRIPTION: Slides reviewed. SDS/gpl [facility] CONVERTED ORDERING PROVIDER Ordering Provider: CLOTILDE DOSS [facility] Thyroidon 08-02-2009 TSH Qn KVNG TYLER M.D., PATHOLOGIST (Electronic signature on file) Final Signed Out: 08/02/2009 14:47 [facility]acon 05-11-2001 Cholesterol [Mass/Vol] Ordering Provider : SAE RESENDIZ [facility] Otheron 05-11-2001 CONVERTED ELECTRONIC SIGNATURE MICHAEL HAWTHORNE M.D., PATHOLOGIST (Electronic signature on file) Final Signed Out: 05/11/2001 11:39 [facility] CONVERTED FINAL DIAGNOSIS TISSUE, REMOVE D AT RELEASE OF RIGHT RING FINGER - FIBROCOLLAGENOUS TISSUE WITH FOCAL FIBROBLASTIC REACTION AND FOCAL MIXOID CHANGE. ATTACHED SMALL AMOUNT OF TISSUE CONSISTENT WITH SYNOVIUM. [facility] Vital Signs Date Time Vital Sign Value Performing Clinician Facility 11-22-2024 07:12-0400 Body height 160.[address] Alexandra Hagen MD Work Phone: 3(474)499-080129 [place] [address] 11-22-2024 07:12-0400 Body mass index (BMI) [Ratio] 30.8 kg/m2 Dr. Alexandra Hagen MD Work Phone: 5(415)410-855161 [address] 11-22-2024 07:12-0400 Body weight 78.[address] Alexandra Hagen MD Work Phone: 9(359)858-456297 [place] [address] 11-22-2024 07:12-0400 Diastolic blood pressure 80 mm[Hg] Dr. Alexandra Hagen MD Work Phone: 7(220)271-067761 [address] 11-22-2024 07:12-0400 Heart rate 84 /min Dr. Alexandra Hagen MD Work Phone: 2(705)125-370561 [address] 11-22-2024 07:12-0400 Respiratory rate 20 /min Dr. Alexandra Hagen MD Work Phone: 8(100)716-207097 [place] [address] 11-22-2024 07:12-0400 SaO2% (BldA) [Mass fraction] 95 % Dr. Alexandra Hagen MD Work Phone: 4(077)808-795861 [address] 11-22-2024 07:12-0400 Systolic blood pressure 125 mm[Hg] Dr. Alexandra Hagen MD Work Phone: 5(817)258-530529 [place] [address] 09-13-2024 14:00-0400 Body height 160.[address] Alexandra Hagen MD Work Phone: 5(478)746-757497 [place] [address] 09-13-2024 14:00-0400 Body mass index (BMI) [Ratio] 30.7 kg/m2 Dr. Alexandra Hagen MD Work Phone: 1(019)543-965629 [place] [address] 09-13-2024 14:00-0400 Body temperature 92.6 [degF] Dr. Alexandra Hagen MD Work Phone: [facility] 09-13-2024 14:00-0400 Body weight 78.[address] Alexandra Hagen MD Work Phone: 2(722)319-776029 [place] [address] 09-13-2024 14:00-0400 Diastolic blood pressure 79 mm[Hg] Dr. Alexandra Hagen MD Work Phone: 0(642)053-844897 [place] [address] 09-13-2024 14:00-0400 Heart rate 83 /min Dr. Alexandra Hagen MD Work Phone: 5(340)211-599829 [place] [address] 09-13-2024 14:00-0400 Respiratory rate 17 /min Dr. Alexandra Hagen MD Work Phone: 7(389)559-666197 [place] [address] 09-13-2024 14:00-0400 SaO2% (BldA) [Mass fraction] 97 % Dr. Alexandra Hagen MD Work Phone: 5(740)958-710397 [place] [address] 09-13-2024 14:00-0400 Systolic blood pressure 126 mm[Hg] Dr. Alexandra Hagen MD Work Phone: 5(266)370-649597 [place] [address] 09-11-2024 13:55-0400 Body mass index (BMI) [Ratio] 30.3 kg/m2 Dr. Alexandra Hagen MD Work Phone: 2(330)221-254497 [place] [address] 09-11-2024 09:09-0400 Body temperature 97.8 [degF] Dr. Alexandra Hagen MD Work Phone: 2(806)408-416497 [place] [address] 09-11-2024 09:09-0400 Diastolic blood pressure 85 mm[Hg] Dr. Alexandra Hagen MD Work Phone: 1(208)980-436797 [place] [address] 09-11-2024 09:09-0400 Heart rate 84 /min Dr. Alexandra Hagen MD Work Phone: 8(503)483-249197 [place] [address] 09-11-2024 09:09-0400 Respiratory rate 18 /min Dr. Alexandra Hagen MD Work Phone: 1(387)622-739997 [place] [address] 09-11-2024 09:09-0400 SaO2% (BldA) [Mass fraction] 98 % Dr. Alexandra Hagen MD Work Phone: 3(858)199-595329 [place] [address] 09-11-2024 09:09-0400 Systolic blood pressure 174 mm[Hg] Dr. Alexandra Hagen MD Work Phone: 8(788)817-503897 [place] [address] 09-10-2024 17:17-0400 Body height 160.[address] Alexandra Hagen MD Work Phone: 0(689)647-931797 [place] [address] 09-10-2024 17:17-0400 Body weight 77.[address] Alexandra Hagen MD Work Phone: 6(682)789-877497 [place] [address] 09-10-2024 16:30-0400 Diastolic blood pressure 73 mm[Hg] Dr. Alexandra Hagen MD Work Phone: 7(250)687-225497 [place] [address] 09-10-2024 16:30-0400 Heart rate 79 /min Dr. Alexandra Hagen MD Work Phone: 3(176)962-689897 [place] [address] 09-10-2024 16:30-0400 Respiratory rate 20 /min Dr. Alexandra Hagen MD Work Phone: 0(786)463-326997 [place] [address] 09-10-2024 16:30-0400 SaO2% (BldA) [Mass fraction] 93 % Dr. Alexandra Hagen MD Work Phone: 9(766)655-379897 [place] [address] 09-10-2024 16:30-0400 Systolic blood pressure 118 mm[Hg] Dr. Alexandra Hagen MD Work Phone: 1(053)524-281297 [place] [address] 09-10-2024 16:07-0400 Body temperature 98.3 [degF] Dr. Alexandra Hagen MD Work Phone: 7(400)893-818597 [place] [address] 09-10-2024 14:19-0400 Body height 160.[address] Alexandra Hagen MD Work Phone: 6(570)575-333597 [place] [address] 09-10-2024 14:19-0400 Body mass index (BMI) [Ratio] 26.5 kg/m2 Dr. Alexandra Hagen MD Work Phone: 6(553)337-117897 [place] [address] 09-10-2024 14:19-0400 Body weight 68.[address] Alexandra Hagen MD Work Phone: 3(919)498-385629 [place] [address] 09-08-2024 15:30-0400 Heart rate 64 /min Dr. Alexandra Hagen MD Work Phone: 3(162)424-189997 [place] [address] 09-08-2024 15:30-0400 Respiratory rate 23 /min Dr. Alexandra Hagen MD Work Phone: 8(239)533-979697 [place] [address] 09-08-2024 15:30-0400 SaO2% (BldA) [Mass fraction] 97 % Dr. Alexandra Hagen MD Work Phone: 9(254)713-340797 [place] [address] 09-08-2024 12:22-0400 Body height 160.[address] Alexandra Hagen MD Work Phone: 3(348)159-230897 [place] [address] 09-08-2024 12:22-0400 Body mass index (BMI) [Ratio] 33.5 kg/m2 Dr. Alexandra Hagen MD Work Phone: 8(294)127-997597 [place] [address] 09-08-2024 12:22-0400 Body temperature 98 [degF] Dr. Alexandra Hagen MD Work Phone: 9(275)989-424297 [place] [address] 09-08-2024 12:22-0400 Body weight 85.[address] Alexandra Hagen MD Work Phone: 5(711)981-029397 [place] [address] 09-08-2024 12:22-0400 Diastolic blood pressure 70 mm[Hg] Dr. Alexandra Hagen MD Work Phone: 2(331)945-040097 [place] [address] 09-08-2024 12:22-0400 Systolic blood pressure 131 mm[Hg] Dr. Alexandra Hagen MD Work Phone: 2(498)240-253997 [place] [address] 07-01-2024 10:38-0400 Body height 160.[address] Alexandra Hagen MD Work Phone: 9(403)310-594397 [place] [address] 07-01-2024 10:38-0400 Body mass index (BMI) [Ratio] 30.8 kg/m2 Dr. Alexandra Hagen MD Work Phone: 3(264)993-000997 [place] [address] 07-01-2024 10:38-0400 Body weight 78.[address] Alexandra Hagen MD Work Phone: [facility] 07-01-2024 10:38-0400 Diastolic blood pressure 85 mm[Hg] Dr. Alexandra Hagen MD Work Phone: [facility] 07-01-2024 10:38-0400 Heart rate 60 /min Dr. Alexandra Hagen MD Work Phone: [facility] 07-01-2024 10:38-0400 Respiratory rate 16 /min Dr. Alexandra Hagen MD Work Phone: [facility] 07-01-2024 10:38-0400 Systolic blood pressure 184 mm[Hg] Dr. Alexandra Hagen MD Work Phone: [facility] 05-10-2024 14:35-0500 Body height 160.[address] Alexandra Hagen MD Work Phone: 0(617)032-448029 [place] [address] 05-10-2024 14:35-0500 Body mass index (BMI) [Ratio] 30.9 kg/m2 Dr. Alexandra Hagen MD Work Phone: [facility] 05-10-2024 14:35-0500 Body temperature 97.8 [degF] Dr. Alexandra Hagen MD Work Phone: [facility] 05-10-2024 14:35-0500 Body weight 79.[address] Alexandra Hagen MD Work Phone: [facility] 05-10-2024 14:35-0500 Diastolic blood pressure 86 mm[Hg] Dr. Alexandra Hagen MD Work Phone: [facility] 05-10-2024 14:35-0500 Heart rate 75 /min Dr. Alexandra Hagen MD Work Phone: [facility] 05-10-2024 14:35-0500 Respiratory rate 16 /min Dr. Alexandra Hagen MD Work Phone: [facility] 05-10-2024 14:35-0500 SaO2% (BldA) [Mass fraction] 94 % Dr. Alexandra Hagen MD Work Phone: [facility] 05-10-2024 14:35-0500 Systolic blood pressure 140 mm[Hg] Dr. Alexandra Hagen MD Work Phone: [facility] 06-20-2023 11:10-0400 Diastolic blood pressure 92 mm[Hg] Sae Conde MD Work Phone: [facility] 06-20-2023 11:10-0400 Heart rate 88 /min Sae Conde MD Work Phone: [facility] 06-20-2023 11:10-0400 Systolic blood pressure 173 mm[Hg] Sae Conde MD Work Phone: [facility] 06-20-2023 05:34-0400 Body temperature 97.39 [degF] Sae Conde MD Work Phone: [facility] 06-20-2023 05:34-0400 Respiratory rate 20 /min Sae Conde MD Work Phone: [facility] 06-20-2023 05:34-0400 SaO2% (BldA) [Mass fraction] 95 % Sae Conde MD Work Phone: [facility] 06-17-2023 18:30-0400 Body height 160 cm Sae Conde MD Work Phone: [facility] 06-17-2023 18:30-0400 Body mass index (BMI) [Ratio] 30.83 kg/m2 Sae Conde MD Work Phone: [facility] 06-17-2023 18:30-0400 Body weight 78.93 kg Sae Conde MD Work Phone: [facility] 06-16-2023 11:02-0400 Body temperature 96.4 [degF] Dr. Rosemary Doran Work Phone: [facility] 06-16-2023 11:02-0400 Diastolic blood pressure 84 mm[Hg] Dr. Rosemary Doran Work Phone: [facility] 06-16-2023 11:02-0400 Heart rate 72 /min Dr. Rosemary Doran Work Phone: [facility] 06-16-2023 11:02-0400 Respiratory rate 16 /min Dr. Rosemary Doran Work Phone: [facility] 06-16-2023 11:02-0400 SaO2% (BldA) [Mass fraction] 96 % Dr. Rosemary Doran Work Phone: [facility] 06-16-2023 11:02-0400 Systolic blood pressure 157 mm[Hg] Dr. Rosemary Doran Work Phone: [facility] 06-16-2023 08:33-0400 Body height 160.[address] Rosemary Doran Work Phone: [facility] 06-16-2023 08:33-0400 Body mass index (BMI) [Ratio] 33.1 kg/m2 Dr. Rosemary Doran Work Phone: [facility] 06-16-2023 08:33-0400 Body weight 84.[address] Rosemary Doran Work Phone: [facility] 05-19-2023 11:21-0500 Body height 160.[address] Rosemary Doran Work Phone: [facility] 05-19-2023 11:21-0500 Body mass index (BMI) [Ratio] 31.6 kg/m2 Dr. Rosemary Doran Work Phone: [facility] 05-19-2023 11:21-0500 Body temperature 97.8 [degF] Dr. Rosemary Doran Work Phone: [facility] 05-19-2023 11:21-0500 Body weight 81.[address] Rosemary Doran Work Phone: [facility] 05-19-2023 11:21-0500 Diastolic blood pressure 90 mm[Hg] Dr. Rosemary Doran Work Phone: [facility] 05-19-2023 11:21-0500 Heart rate 88 /min Dr. Rosemary Doran Work Phone: [facility] 05-19-2023 11:21-0500 Respiratory rate 17 /min Dr. Rosemary Doran Work Phone: [facility] 05-19-2023 11:21-0500 SaO2% (BldA) [Mass fraction] 98 % Dr. Rosemary Doran Work Phone: [facility] 05-19-2023 11:21-0500 Systolic blood pressure 152 mm[Hg] Dr. Rosemary Doran Work Phone: [facility] 05-15-2023 09:01-0500 Body mass index (BMI) [Ratio] 31.6 kg/m2 Dr. Rosemary Doran Work Phone: [facility] 05-15-2023 09:01-0500 Body weight 81.[address] Rosemary Doran Work Phone: [facility] 05-15-2023 09:01-0500 Diastolic blood pressure 85 mm[Hg] Dr. Rosemary Doran Work Phone: [facility] 05-15-2023 09:01-0500 Heart rate 78 /min Dr. Rosemary Doran Work Phone: [facility] 05-15-2023 09:01-0500 Respiratory rate 18 /min Dr. Rosemary Doran Work Phone: [facility] 05-15-2023 09:01-0500 Systolic blood pressure 156 mm[Hg] Dr. Rosemary Doran Work Phone: [facility] 01-20-2023 08:05-0400 Body height 160.[address] Rosemary Doran Work Phone: [facility] 01-20-2023 08:05-0400 Body mass index (BMI) [Ratio] 32 kg/m2 Dr. Rosemary Doran Work Phone: [facility] 01-20-2023 08:05-0400 Body temperature 98 [degF] Dr. Roesmary Doran Work Phone: [facility] 01-20-2023 08:05-0400 Body weight 82.[address] Rosemary Doran Work Phone: [facility] 01-20-2023 08:05-0400 Diastolic blood pressure 90 mm[Hg] Dr. Rosemary Doran Work Phone: [facility] 01-20-2023 08:05-0400 Heart rate 88 /min Dr. Rosemary Doran Work Phone: [facility] 01-20-2023 08:05-0400 Respiratory rate 17 /min Dr. Rosemary Doran Work Phone: [facility] 01-20-2023 08:05-0400 SaO2% (BldA) [Mass fraction] 97 % Dr. Rosemary Doran Work Phone: [facility] 01-20-2023 08:05-0400 Systolic blood pressure 140 mm[Hg] Dr. Rosemary Doran Work Phone: [facility] 12-28-2022 11:09-0400 Body temperature 97.8 [degF] Dr. Rosemary Doran Work Phone: [facility] 12-28-2022 11:09-0400 Diastolic blood pressure 79 mm[Hg] Dr. Rosemary Doran Work Phone: [facility] 12-28-2022 11:09-0400 Heart rate 84 /min Dr. Rosemary Doran Work Phone: [facility] 12-28-2022 11:09-0400 Respiratory rate 16 /min Dr. Rosemary Doran Work Phone: [facility] 12-28-2022 11:09-0400 SaO2% (BldA) [Mass fraction] 96 % Dr. Rosemary Doran Work Phone: [facility] 12-28-2022 11:09-0400 Systolic blood pressure 169 mm[Hg] Dr. Rosemary Doran Work Phone: [facility] 12-27-2022 19:16-0400 Body height 160.[address] Rosemary Doran Work Phone: [facility] 12-27-2022 19:16-0400 Body mass index (BMI) [Ratio] 32.1 kg/m2 Dr. Rosemary Doran Work Phone: [facility] 12-27-2022 19:16-0400 Body weight 82.[address] Rosemary Doran Work Phone: [facility] 12-05-2022 09:25-0400 Body temperature 98.2 [degF] Dr. Rosemary Doran Work Phone: [facility] 12-05-2022 09:25-0400 Body weight 82.[address] Rosemary Doran Work Phone: [facility] 12-05-2022 09:25-0400 Diastolic blood pressure 85 mm[Hg] Dr. Rosemary Doran Work Phone: [facility] 12-05-2022 09:25-0400 Heart rate 90 /min Dr. Rosemary Doran Work Phone: [facility] 12-05-2022 09:25-0400 SaO2% (BldA) [Mass fraction] 95 % Dr. Rosemary Doran Work Phone: [facility] 12-05-2022 09:25-0400 Systolic blood pressure 145 mm[Hg] Dr. Rosemary Doran Work Phone: [facility] 11-18-2022 11:24-0400 Diastolic blood pressure 82 mm[Hg] Dr. Rosemary Doran Work Phone: [facility] 11-18-2022 11:24-0400 Heart rate 76 /min Dr. Rosemary Doran Work Phone: [facility] 11-18-2022 11:24-0400 Respiratory rate 15 /min Dr. Rosemary Doran Work Phone: [facility] 11-18-2022 11:24-0400 SaO2% (BldA) [Mass fraction] 98 % Dr. Rosemary Doran Work Phone: [facility] 11-18-2022 11:24-0400 Systolic blood pressure 137 mm[Hg] Dr. Rosemary Doran Work Phone: [facility] 11-18-2022 07:55-0400 Body height 160.[address] Rosemary Doran Work Phone: [facility] 11-18-2022 07:55-0400 Body mass index (BMI) [Ratio] 32.9 kg/m2 Dr. Rosemary Doran Work Phone: [facility] 11-18-2022 07:55-0400 Body weight 84.[address] Rosemary Doran Work Phone: [facility] 11-18-2022 07:50-0400 Body temperature 97.8 [degF] Dr. Rosemary Doran Work Phone: [facility] 11-15-2022 10:11-0400 Body mass index (BMI) [Ratio] 32.2 kg/m2 Dr. Rosemary Doran Work Phone: [facility] 11-15-2022 08:55-0400 Body temperature 97.7 [degF] Dr. Rosemary Doran Work Phone: [facility] 11-15-2022 08:55-0400 Diastolic blood pressure 78 mm[Hg] Dr. Rosemary Doran Work Phone: [facility] 11-15-2022 08:55-0400 Heart rate 68 /min Dr. Rosemary Doran Work Phone: [facility] 11-15-2022 08:55-0400 Respiratory rate 16 /min Dr. Rosemary Doran Work Phone: [facility] 11-15-2022 08:55-0400 SaO2% (BldA) [Mass fraction] 96 % Dr. Rosemary Doran Work Phone: [facility] 11-15-2022 08:55-0400 Systolic blood pressure 136 mm[Hg] Dr. Rosemary Doran Work Phone: [facility] 11-14-2022 13:12-0400 Body weight 82.[address] Rosemary Doran Work Phone: [facility] 11-14-2022 12:30-0400 Body temperature 97.6 [degF] Dr. Rosemary Doran Work Phone: [facility] 11-14-2022 12:30-0400 Diastolic blood pressure 101 mm[Hg] Dr. Rosemary Doran Work Phone: [facility] 11-14-2022 12:30-0400 Heart rate 64 /min Dr. Rosemary Doran Work Phone: [facility] 11-14-2022 12:30-0400 Respiratory rate 14 /min Dr. Rosemary Doran Work Phone: [facility] 11-14-2022 12:30-0400 SaO2% (BldA) [Mass fraction] 98 % Dr. Rosemary Doran Work Phone: [facility] 11-14-2022 12:30-0400 Systolic blood pressure 164 mm[Hg] Dr. Rosemary Doran Work Phone: [facility] 11-14-2022 11:02-0400 Body height 160.[address] Rosemary Doran Work Phone: [facility] 11-14-2022 11:02-0400 Body mass index (BMI) [Ratio] 33.7 kg/m2 Dr. Rosemary Doran Work Phone: [facility] 11-14-2022 11:02-0400 Body weight 86.[address] Rosemary Doran Work Phone: [facility] 10-15-2022 09:24-0400 Body height 160.[address] Rosemary Doran Work Phone: [facility] 10-15-2022 09:24-0400 Body mass index (BMI) [Ratio] 30.8 kg/m2 Dr. Rosemary Doran Work Phone: [facility] 10-15-2022 09:24-0400 Body weight 78.[address] Rosemary Doran Work Phone: [facility] 10-15-2022 09:24-0400 Diastolic blood pressure 87 mm[Hg] Dr. Rosemary Doran Work Phone: [facility] 10-15-2022 09:24-0400 Heart rate 73 /min Dr. Rosemary Doran Work Phone: [facility] 10-15-2022 09:24-0400 Respiratory rate 18 /min Dr. Rosemary Doran Work Phone: [facility] 10-15-2022 09:24-0400 Systolic blood pressure 149 mm[Hg] Dr. Rosemary Doran Work Phone: [facility] 09-18-2022 19:36-0400 Diastolic blood pressure 72 mm[Hg] Dr. Rosemary Doran Work Phone: [facility] 09-18-2022 19:36-0400 Systolic blood pressure 140 mm[Hg] Dr. Rosemary Doran Work Phone: [facility] 09-18-2022 08:05-0400 Body height 160.[address] Rosemary Doran Work Phone: [facility] 09-18-2022 08:05-0400 Body mass index (BMI) [Ratio] 31.8 kg/m2 Dr. Rosemary Doran Work Phone: [facility] 09-18-2022 08:05-0400 Body temperature 97.8 [degF] Dr. Rosemary Doran Work Phone: [facility] 09-18-2022 08:05-0400 Body weight 81.[address] Rosemary Doran Work Phone: [facility] 09-18-2022 08:05-0400 Heart rate 111 /min Dr. Rosemary Doran Work Phone: [facility] 09-18-2022 08:05-0400 Respiratory rate 17 /min Dr. Rosemary Doran Work Phone: [facility] 09-18-2022 08:05-0400 SaO2% (BldA) [Mass fraction] 99 % Dr. Rosemary Doran Work Phone: [facility] 09-08-2022 16:03-0400 Diastolic blood pressure 84 mm[Hg] Dr. Rosemary Doran Work Phone: [facility] 09-08-2022 16:03-0400 Heart rate 90 /min Dr. Rosemary Doran Work Phone: [facility] 09-08-2022 16:03-0400 Respiratory rate 20 /min Dr. Rosemary Doran Work Phone: [facility] 09-08-2022 16:03-0400 SaO2% (BldA) [Mass fraction] 97 % Dr. Rosemary Doran Work Phone: [facility] 09-08-2022 16:03-0400 Systolic blood pressure 157 mm[Hg] Dr. Rosemary Doran Work Phone: [facility] 09-08-2022 15:32-0400 Body mass index (BMI) [Ratio] 33.2 kg/m2 Dr. Rosemary Doran Work Phone: [facility] 09-08-2022 15:32-0400 Body weight [address] Rosemary Doran Work Phone: [facility] 09-08-2022 14:26-0400 Body temperature 96.8 [degF] Dr. Rosemary Doran Work Phone: [facility] 04-16-2022 14:26-0500 Body height 160.[address] Rosemary Doran Work Phone: [facility] 04-16-2022 14:26-0500 Body mass index (BMI) [Ratio] 30.6 kg/m2 Dr. Rosemary Doran Work Phone: [facility] 04-16-2022 14:26-0500 Body weight 78.[address] Rosemary Doran Work Phone: [facility] 04-16-2022 14:26-0500 Diastolic blood pressure 60 mm[Hg] Dr. Rosemary Doran Work Phone: [facility] 04-16-2022 14:26-0500 Heart rate 88 /min Dr. Rosemary Doran Work Phone: [facility] 04-16-2022 14:26-0500 Respiratory rate 18 /min Dr. Rosemary Doran Work Phone: [facility] 04-16-2022 14:26-0500 Systolic blood pressure 89 mm[Hg] Dr. Rosemary Doran Work Phone: [facility] 02-11-2022 02:02-0500 Diastolic blood pressure 82 mm[Hg] Dr. Rosemary Doran Work Phone: [facility] 02-11-2022 02:02-0500 Heart rate 74 /min Dr. Rosemary Doran Work Phone: [facility] 02-11-2022 02:02-0500 Respiratory rate 16 /min Dr. Rosemary Doran Work Phone: [facility] 02-11-2022 02:02-0500 SaO2% (BldA) [Mass fraction] 96 % Dr. Rosemary Doran Work Phone: [facility] 02-11-2022 02:02-0500 Systolic blood pressure 106 mm[Hg] Dr. Rosemary Doran Work Phone: [facility] 02-11-2022 00:07-0500 Body height 160.[address] Rosemary Doran Work Phone: [facility] Work Phone: 02-11-2022 00:07-0500 Body mass index (BMI) [Ratio] 33.1 kg/m2 Dr. Rosemary Doran Work Phone: [facility] 02-11-2022 00:07-0500 Body temperature 98.4 [degF] Dr. Rosemary Doran Work Phone: [facility] 02-11-2022 00:07-0500 Body weight 84.[address] Rosemary Doran Work Phone: [facility] 10-18-2021 10:26-0400 Body mass index (BMI) [Ratio] 33.1 kg/m2 Dr. Rosemary Doran Work Phone: [facility] Work Phone: 10-18-2021 10:26-0400 Body weight 84.[address] Rosemary Doran Work Phone: [facility] Work Phone: 10-18-2021 10:26-0400 Diastolic blood pressure 63 mm[Hg] Dr. Rosemary Doran Work Phone: [facility] Work Phone: 10-18-2021 10:26-0400 Heart rate 87 /min Dr. Rosemary Doran Work Phone: [facility] Work Phone: 10-18-2021 10:26-0400 Respiratory rate 20 /min Dr. Rosemary Doran Work Phone: [facility] Work Phone: 10-18-2021 10:26-0400 SaO2% (BldA) [Mass fraction] 96 % Dr. Rosemary Doran Work Phone: [facility] Work Phone: 10-18-2021 10:26-0400 Systolic blood pressure 101 mm[Hg] Dr. Rosemary Doran Work Phone: [facility] Work Phone: Encounters Encounter Date Encounter Type Care Provider Facility Start: 02-01-2025 ambulatory [facility]: [facility] Start: 01-25-2025 End: 01-25-2025 ambulatory [facility] [place] [place] Start: 12-30-2024 Registered Referred Cesar Cole MD - [facility] Work Phone: Start: 12-30-2024 End: 12-30-2024 ambulatory [facility] Facility:[facility] Start: 12-24-[address] [facility] Work Phone: Start: 12-24-2024 End: 12-24-2024 ambulatory [facility] Facility:[facility] Start: 11-30-2024 ambulatory [facility]: [facility] Start: 11-30-[address] Kvng [facility] Work Phone: Start: 11-22-2024 End: 11-22-2024 Patient encounter procedure Yinka ZUNIGA -[facility] Work Phone: Start: 11-22-2024 End: 11-22-[address] Alexandra Hagen MD Work Phone: -[facility] Start: 11-22-2024 End: 11-22-2024 ambulatory [facility] Facility:[facility] Start: 11-08-2024 ambulatory [facility]: [facility] Start: 11-08-[address] [facility] Work Phone: Start: 10-25-[address] K[facility]ng [facility] Work Phone: Start: 10-25-2024 End: 10-25-2024 ambulatory [facility] Facility:[facility] Start: 10-11-[address] [facility] Work Phone: Start: 10-11-2024 End: 10-11-2024 ambulatory [facility] Start: 10-04-2024 ambulatory [facility]: [facility] Start: 10-04-2024 Registered Referred [facility] Work Phone: Start: 09-24-2024 End: 09-24-[address] Anoop Blackmon MD Work Phone: -[facility] Start: 09-24-2024 End: 09-24-2024 [facility] Start: 09-24-2024 Registered Referred Cesar Leonard [facility] Work Phone: Start: 09-24-2024 End: 09-24-2024 ambulatory [facility] Facility:[facility] Start: 09-22-[address] [facility] Work [facility]: Start: 09-22-2024 End: 09-22-2024 ambulatory [facility] Start: 09-17-2024 Registered Referred Cesar Leonard [facility] Work Phone: Start: 09-17-2024 End: 09-17-2024 ambulatory [facility] Start: 09-13-2024 End: 09-13-[address] Anant Juarez MD -[facility] Work Phone: Start: 09-13-2024 End: 09-13-[address] Alexandra Hagen MD Work Phone: [facility] Work Phone: Start: 09-13-2024 End: 09-13-2024 ambulatory [facility] Start: 09-11-2024 Non-patient / Non-visit Dr. Richardson WHEEL[facility] Work Phone: Start: 09-10-2024 End: 09-11-2024 ambulatory [facility] Start: 09-10-2024 End: 09-11-2024 Evaluation and management of inpatient Dr. Matthew Oro DO -[facility] Work Phone: Start: 09-10-2024 End: 09-11-[address] Alexandra Hagen MD Work Phone: [facility] Work Phone: Start: 09-08-2024 End: 09-08-2024 Emergency department patient visit Dr. Alexandra Hagen MD Work Phone: -Emergency Department Work Phone: Start: 08-18-2024 End: 08-18-[address] Alexandra Hagen MD Work Phone: [facility] Work Phone: Start: 08-18-2024 End: 08-18-2024 Departed Referred [facility] Work Phone: Start: 08-18-2024 Registered Referred [facility] Work Phone: Start: 08-18-2024 End: 08-18-2024 ambulatory Cesar MARTINEZ Facility:[facility] Start: 07-19-2024 End: 07-19-[address] Alexandra Hagen MD Work Phone: [facility] Work Phone: Start: 07-19-2024 End: 07-19-2024 Departed Referred Cesar [facility] Work Phone: Start: 07-19-2024 End: 07-19-2024 ambulatory Cesar MARTINEZ Facility:[facility] Start: 07-01-2024 End: 07-01-[address] Cesar Cole MD -[facility] Work Phone: Start: 07-01-2024 End: 07-01-2024 ambulatory Alexandra Hagen Facility:[facility] Start: 06-16-2024 End: 06-16-[address] Alexandra Hagen MD Work Phone: [facility] Work Phone: Start: 06-16-2024 End: 06-16-[address] Kvng LeonardRaynham [facility] Work Phone: Start: 06-16-[address] Kvng leger MD -[facility] Work Phone: Start: 06-16-2024 End: 06-16-2024 ambulatory Alexandra S Xiao Facility:[facility] Start: 06-09-2024 End: 06-09-[address] Alexandra Hagen MD Work Phone: [facility] Work Phone: Start: 06-09-2024 End: 06-09-[address] Kvng Ochoa MD -[facility] Work Phone: Start: 06-09-2024 End: 06-09-2024 ambulatory Alexandra Hagen Facility:[facility] Start: 05-19-2024 End: 05-19-[address] Alexandra Hagen MD Work Phone: [facility] Work Phone: Start: 05-19-2024 End: 05-19-2024 Departed Referred Cesar Cole MD -[facility] Work Phone: Start: 05-19-2024 Registered Referred Cesar Cole MD - [facility] Work Phone: Start: 05-19-2024 End: 05-19-2024 ambulatory Alexandra S Xiao Facility:[facility] Start: 05-12-2024 ambulatory Alexandra Hagen Facility: [facility] Start: 05-12-2024 Registered Referred Anant Juarez MD -[facility] Work Phone: Start: 05-10-2024 End: 05-10-[address] Anant Juarez MD -[facility] Work Phone: Start: 05-10-2024 End: 05-10-2024 ambulatory Anant Juarez [place] [place] Start: 05-05-2024 End: 05-05-[address] Alexandra Hagen MD Work Phone: [facility] Work Phone: Start: 05-05-2024 End: 05-05-[address] [facility] Work Phone: Start: 05-05-2024 Registered Referred [facility] Work Phone: Start: 05-05-2024 End: 05-05-2024 ambulatory Cesar MARTINEZ Facility:[facility] Start: 04-28-2024 End: 04-28-[address] Alexandra Hagen MD Work Phone: [facility] Work Phone: Start: 04-28-2024 End: 04-28-[address] [facility] Work Phone: Start: 04-28-2024 End: 04-28-2024 ambulatory Alexandra S Jolliff Facility:[facility] Start: 04-14-2024 ambulatory Alexandra S Jolliff Facility: [facility] Start: 04-14-[address] [facility] Work Phone: Start: 04-09-2024 End: 04-09-[address] [facility]ng [facility] Work Phone: Start: 04-09-2024 End: 04-09-2024 ambulatory Alexandra S Jolliff Facility:[facility] Start: 04-06-2024 End: 04-06-[address] [facility] Work Phone: Start: 04-05-2024 End: 04-06-2024 ambulatory Alexandra S Jolliff Facility:[facility] Start: 04-05-[address] [facility] Work Phone: Start: 03-29-2024 ambulatory Alexandra S Jolliff Facility: [facility] Start: 03-29-[address] K[facility] Work Phone: Start: 03-26-2024 ambulatory Alexandra S Jolliff Facility: [facility] Start: 03-26-[address] [facility] Work Phone: Start: 03-25-2024 ambulatory Alexandra S Jolliff Facility: [facility] Start: 03-25-[address] [facility] Work Phone: Start: 03-19-2024 ambulatory Alexandra S Jolliff Facility: [facility] Start: 03-19-[address] [facility] Work Phone: Start: 03-17-2024 ambulatory Kvng MARTINEZ Facil ity:[facility] Start: 03-17-[address] [facility] Work Phone: Start: 03-10-2024 ambulatory Kvng Ochoa [facility] Facil ity:[facility] Start: 03-10-[address] [facility] Work Phone: Start: 03-08-2024 ambulatory Kvng Ochoa [facility] Facil ity:[facility] Start: 03-08-[address] [facility] Work Phone: Start: 03-04-2024 ambulatory Kvng Ochoa [facility] Facil ity:[facility] Start: 03-04-[address] [facility] Work Phone: Start: 02-05-2024 End: 02-05-[address] K[facility] Work Phone: Start: 02-05-2024 End: 02-05-2024 ambulatory Kvng MARTINEZ Facility:[facility] Start: 06-30-2023 End: 06-30-[address] Rosemary Doran Work Phone: [facility] Work Phone: Start: 06-30-2023 End: 06-30-[address] Rosemary Doran Work Phone: [facility] Work Phone: Start: 06-16-2023 End: 06-20-2023 Evaluation and management of inpatient [facility] Start: 06-16-2023 End: 06-20-2023 Evaluation and management of inpatient Sae Conde MD Work Phone: [facility] Comment on above: Closed displaced fra cture of medial condyle of right humerus, initial encounter (Primary Dx) Start: 06-16-2023 Non-patient / Non-visit Dr. Slim Doran Work Phone: [facility] Start: 06-16-2023 End: 06-16-2023 Emergency department patient visit Dr. Rosemary Doran Work Phone: [facility]gency [facility] Work Phone: Start: 05-30-2023 End: 05-30-[address] Rosemary Doran Work Phone: [facility] Work Phone: Start: 05-30-2023 End: 05-30-[address] Rosemary Doran Work Phone: [facility] Work Phone: Start: 05-19-2023 End: 05-19-[address] Rosemary Doran Work Phone: [facility] Work Phone: Start: 05-15-2023 End: 05-15-[address] Rosemary Doran Work Phone: [facility] Work Phone: Start: 05-12-2023 End: 05-12-[address] Rosemary Doran Work Phone: [facility] Work Phone: Start: 05-12-[address] Rosemary Doran Work Phone: [facility] Work Phone: Start: 05-01-2023 End: 05-01-[address] Rosemary Doran Work Phone: [facility] Work Phone: Start: 05-01-2023 End: 05-01-[address] Rosemary Doran Work Phone: [facility] Work Phone: Start: 04-17-2023 End: 04-17-[address] Rosemary Doran Work Phone: [facility] Work Phone: Start: 04-17-2023 End: 04-17-[address] Rosemary Doran Work Phone: [facility] Work Phone: Start: 04-17-[address] Rosemary Doran Work Phone: [facility] Work Phone: Start: 03-20-2023 End: 03-20-[address] Rosemary Doran Work Phone: [facility] Work Phone: Start: 02-21-2023 End: 02-21-[address] Rosemary Doran Work Phone: [facility] Work Phone: Start: 02-21-2023 End: 02-21-[address] Rosemary Doran Work Phone: [facility] Work Phone: Start: 01-20-2023 End: 01-20-[address] Rosemary Doran Work Phone: [facility] Work Phone: Start: 01-20-2023 End: 01-20-[address] Rosemary Doran Work Phone: [facility] Work Phone: Start: 01-20-2023 End: 01-20-[address] Rosemary Doran Work Phone: [facility] Work Phone: Start: 01-16-2023 End: 01-16-[address] Rosemary Doran Work Phone: [facility] Work Phone: Start: 01-16-2023 End: 01-16-[address] Rosemary Doran Work Phone: [facility] Work Phone: Start: 12-28-2022 Non-patient / Non-visit Dr. Slim Doran Work Phone: [facility] Work Phone: Start: 12-27-2022 Non-patient / Non-visit Dr. Slim Doran Work Phone: [facility] [facility] Work Phone: Start: 12-27-2022 End: 12-28-2022 Evaluation and management of inpatient Dr. Rosemary Doran Work Phone: [facility]-Progressive Care Unit Work Phone: Start: 12-27-2022 End: 12-28-[address] Rosemary Doran Work Phone: [facility] Work Phone: Start: 12-19-2022 End: 12-19-[address] Rosemary Doran Work Phone: [facility] Work Phone: Start: 12-19-2022 End: 12-19-[address] Rosemary Doran Work Phone: [facility] Work Phone: Start: 12-19-[address] Rosemary Doran Work Phone: [facility] Work Phone: Start: 12-09-2022 End: 12-09-[address] Rosemary Doran Work Phone: [facility] Work Phone: Start: 12-09-2022 End: 12-09-[address] Rosemary Doran Work Phone: [facility] Work Phone: Start: 12-09-[address] Rosemary Doran Work Phone: [facility] Work Phone: Start: 12-05-2022 End: 12-05-[address] Rosemary Doran Work Phone: [facility] Work Phone: Start: 11-20-2022 End: 11-20-[address] Rosemary Doran Work Phone: [facility] Work Phone: Start: 11-20-2022 End: 11-20-[address] Rosemary Doran Work Phone: [facility] Work Phone: Start: 11-20-[address] Rosemary Doran Work Phone: [facility] Work Phone: Start: 11-18-2022 End: 11-18-2022 Emergency department patient visit Dr. Rosemary Doran Work Phone: [facility]-Emergency Department Work Phone: Start: 11-15-2022 Non-patient / Non-visit Dr. Slim Doran Work Phone: [facility] Work Phone: Start: 11-14-2022 Non-patient / Non-visit Dr. Slim Doran Work Phone: [facility] Start: 11-14-2022 Non-patient / Non-visit Dr. Slim Doran Work Phone: [facility] Work Phone: Start: 11-14-2022 End: 11-15-2022 Evaluation and management of inpatient Dr. Rosemary Doran Work Phone: [facility]-Progressive Care [facility] Work Phone: Start: 11-14-[address] Marcelo Doran Work Phone: [facility] Work Phone: Start: 10-23-2022 End: 10-23-[address] Rosemary Doran Work Phone: [facility] Work Phone: Start: 10-23-2022 End: 10-23-[address] Rosemary Doran Work Phone: [facility] Work Phone: Start: 10-22-2022 End: 10-22-[address] Rosemary Doran Work Phone: [facility] Work Phone: Start: 10-22-2022 End: 10-22-[address] Rosemary Doran Work Phone: [facility]-Physical Therapy Work Phone: Start: 10-22-[address] Sada Doran Work Phone: [facility]-Physical Therapy Work Phone: Start: 10-15-2022 End: 10-15-[address] Rosemary Doran Work Phone: [facility] Work Phone: Start: 09-26-2022 Non-patient / Non-visit Dr. Slim Doran Work Phone: [facility] Start: 09-26-2022 End: 09-26-[address] Rosemary Doran Work Phone: [facility] Work Phone: Start: 09-26-2022 End: 09-26-[address] Rosemary Doran Work Phone: [facility]-Cardiovascula r Services Work Phone: Start: 09-18-2022 End: 09-18-[address] Rosemary Doran Work Phone: [facility] Work Phone: Start: 09-18-2022 End: 09-18-[address] Rosemary Doran Work Phone: [facility] Start: 09-13-2022 End: 09-13-[address] Rosemary Doran Work Phone: [facility]-Laboratory Start: 09-08-2022 End: 09-08-2022 Emergency department patient visit Dr. Rosemary Doran Work Phone: [facility]-Emergency Department Start: 09-06-2022 End: 09-06-[address] Rosemary Doran Work Phone: [facility] Start: 09-05-2022 End: 09-05-[address] Rosemary Doran Work Phone: [facility] Start: 08-08-2022 End: 08-08-[address] Rosemary Doran Work Phone: [facility] Start: 06-26-2022 End: 06-26-[address] Rosemary Doran Work Phone: [facility] Work Phone: Start: 06-26-2022 End: 06-26-[address] Rosemary Doran Work Phone: [facility] Start: 06-04-2022 End: 06-04-[address] Rosemary Doran Work Phone: [facility] Work Phone: Start: 06-04-2022 End: 06-04-[address] Rosemary Doran Work Phone: [facility] Start: 04-16-2022 End: 04-16-[address] Rosemary Doran Work Phone: [facility] Start: 02-11-2022 End: 02-11-2022 Emergency department patient visit Dr. Rosemary Doran Work Phone: [facility]-Emergency Department Start: 10-18-2021 End: 10-18-[address] Rosemary Doran Work Phone: [facility] Start: 10-12-2019 End: 10-12-2019 Refill Jo Perez Work Phone: [facility] Comment on above: Refill Request; Refi ll Request Start: 02-11-2018 Patient encounter ROSA ELENA AYALALALITHA Cai lity:[facility] Start: 01-05-2018 End: 01-05-2018 Patient encounter JO PEREZ Facility:[facility] Start: 07-21-2017 End: 07-21-2017 Patient encounter RICKEY CHAVARRIA Facility:[facility] Start: 07-15-2017 Patient encounter JO PEREZ Facility:[facility] Start: 07-07-2017 End: 07-07-2017 Patient encounter JO PEREZ Facility:[facility] Start: 06-27-2017 End: 06-27-2017 Patient encounter JO PEREZ Facility:[facility] Start: 06-11-2017 Patient encounter JO PEREZ Facility:[facility] Start: 02-01-2015 End: 02-01-2015 Patient encounter procedure Shi Lester Work Phone: [facility] Start: 02-01-2015 Results Only Shi ford Work Phone: [facility] Start: 04-17-2010 End: 04-17-2010 Patient encounter procedure Cruz Lemosvel Sanchez Work Phone: [facility] Start: 04-17-2010 Results Only Cruz Geiger Akanksha ipnorristt Work Phone: [facility] Start: 07-31-2009 End: 07-31-2009 Patient encounter procedure Clotilde Juradochastity Doss Work Phone: [facility] Start: 07-31-2009 Results Only Clotilde Stone David rabec Work Phone: [facility] Start: 05-07-2001 End: 05-07-2001 Patient encounter procedure Sae Arnett Astrid Work Phone: [facility] Start: 05-07-2001 Results Only Sae Arnett Pap as Work Phone: [facility] Procedures Date Procedure Procedure Detail Performing [...] quantitative blood xcpt reagent strip Connie Perez LICENSED EMBALMER SUPERVISOR - [facility] Work Phone: Start: 06-20-2023 Prothrombin time Sonal Perez LICENSED EMBALMER SUPERVISOR - DANCE THERAPIST Work Phone: Start: 06-19-2023 Glucose quantitative blood xcpt reagent strip Connie Perez LICENSED EMBALMER SUPERVISOR - [facility] Work Phone: Start: 06-19-2023 Glucose quantitative blood xcpt reagent strip Connie Perez LICENSED EMBALMER SUPERVISOR - [facility] Work Phone: Start: 06-19-2023 Glucose quantitative blood xcpt reagent strip Connie Perez LICENSED EMBALMER SUPERVISOR - [facility] Work Phone: Start: 06-19-2023 Prothrombin time Sonal Perez LICENSED EMBALMER SUPERVISOR - [facility] Work Phone: Start: 06-19-2023 Glucose quantitative blood xcpt reagent strip Connie Perez LICENSED EMBALMER SUPERVISOR - [facility] Work Phone: Start: 06-19-2023 Basic metabolic pane l calcium total Connie Perez LICENSED E[employer] SUPERVISOR - [facility] Work Phone: Start: 06-18-2023 Glucose quantitative [...] metabolic pane l calcium total Connie Perez LICENSED EMBAL[employer] SUPERVISOR - [facility] Work Phone: Start: 06-17-2023 Glucose quantitative [...] on above: Performed By: #### L [id number] ####Bias Cutting Machine Operator Vertical: ALEXANDRA BUSTAMANTE ([id number])[facility] ([address] Start: 06-16-2023 End: 06-16-2023 Radex shoulder [...] End: 11-22-2024 Evaluation of diagnostic study results [facility] Start: 09-13-2024 Lamotrigine measurement [facility] Start: 09-13-2024 Measurement of substance [facility] Start: 09-11-2024 Patient discharge [facility] Start: 09-11-2024 Complete blood count [facility] Start: 09-10-2024 Following clinical p athway protocol [facility] Start: 09-10-2024 Transfusion of blood product [facility] Start: 09-10-2024 Aspiration precautions [facility] Start: 09-10-2024 Assessment of risk o f venous thromboembolism [facility] Start: 09-10-2024 Cardiac monitoring [facility] Start: 09-10-2024 Catheterization of vein [facility] Start: 09-10-2024 Consultation [facility] Start: 09-10-2024 Continuous pulse oximetry [facility] Start: 09-10-2024 Electroencephalogram [facility] Start: 09-10-2024 Elevation of head of bed [facility] Start: 09-10-2024 Exercises [facility] Start: 09-10-2024 Insertion of cathete r into peripheral vein [facility] Start: 09-10-2024 Notification of physician [facility] Start: 09-10-2024 Oxygen therapy [facility] Start: 09-10-2024 Patient referral to dietitian [facility] Start: 09-10-2024 Providing care accor ding to standard [facility] Start: 09-10-2024 Referral for physical therapy [facility] Start: 09-10-2024 Referral to occupati onal therapist [facility] Start: 09-10-2024 Referral to service [facility] Start: 09-10-2024 Speech therapy assessment [facility] Start: 09-10-2024 Telemedicine consult ation with patient [facility] Start: 09-10-2024 Tobacco use cessatio n education [facility] Start: 09-10-2024 Vital signs measurements [facility] Start: 09-10-2024 End: 09-10-2024 [facility] Start: 09-10-2024 Verification routine [facility] Start: 09-10-2024 MRI of brain without contrast Brain without Contrast [facility] Start: 09-10-2024 Admission procedure [facility] Start: 09-10-2024 [facility] Start: 09-10-2024 Bacteria identified in Urine by Culture Urine Culture [facility] Start: 09-10-2024 Urine culture [facility] Start: 09-10-2024 Oxygen therapy [facility] Start: 09-10-2024 [facility] Start: 09-08-2024 Lamotrigine measurement [facility] Start: 01-06-2024 Urine microalbumin profile DTA P,TDAP,TD (1 - Tdap) [facility] Comment on above: Postponed from 06/23 (Declined at this time) Start: 07-28-2023 ADVANCE DIRECTIVE DISCUSSION A DVANCE DIRECTIVE DISCUSSION [facility] Start: 06-16-2023 Application long arm splint shoulder hand APPLY LONG ARM SPLINT [facility] Start: 06-16-2023 [facility] Start: 03-31-2023 Medicare Advantage A nnual Wellness Visit Medicare Advantage Annual Wellness Visit [facility] Start: 01-20-2023 Serum immunofixation [facility] Start: 01-20-2023 Urine immunofixation [facility] Start: 12-28-2022 Patient discharge [facility] Start: 12-28-2022 [facility] Start: 12-27-2022 Following clinical p athway protocol [facility] Start: 12-27-2022 Assessment of risk o f venous thromboembolism [facility] Start: 12-27-2022 Catheterization of vein [facility] Start: 12-27-2022 Incentive spirometry [facility] Start: 12-27-2022 Inhalation therapy procedure [facility] Start: 12-27-2022 Insertion of cathete r into peripheral vein [facility] Start: 12-27-2022 Measuring intake and output [facility] Start: 12-27-2022 Neurological assessment [facility] Start: 12-27-2022 Providing care accor ding to [facility] Start: 12-27-2022 Provision of activit y privileges [facility] Start: 12-27-2022 Referral to occupati onal therapist [facility] Start: 12-27-2022 Referral to service [facility] Start: 12-27-2022 Speech therapy assessment [facility] Start: 12-27-2022 [facility] Start: 12-27-2022 Admission procedure [facility] Start: 11-15-2022 Patient discharge [facility] Start: 11-15-2022 Blood chemistry [facility] Start: 11-14-2022 Following clinical p athway protocol [facility] Start: 11-14-2022 Assessment of risk o f venous thromboembolism [facility] Start: 11-14-2022 Cardiac monitoring [facility] Start: 11-14-2022 Catheterization of vein [facility] Start: 11-14-2022 Continuous pulse oximetry [facility] Start: 11-14-2022 Elevation of head of bed [facility] Start: 11-14-2022 Exercises [facility] Start: 11-14-[address] anned interventions [facility] Start: 11-14-2022 Insertion of cathete r into peripheral vein [facility] Start: 11-14-2022 Measuring intake and output [facility] Start: 11-14-2022 MRI of brain without contrast Brain without Contrast [facility] Start: 11-14-2022 Notification of physician [facility] Start: 11-14-2022 Oxygen therapy [facility] Start: 11-14-2022 Patient referral to dietitian [facility] Start: 11-14-2022 Providing care accor ding to [facility] Start: 11-14-2022 Referral to occupati onal therapist [facility] Start: 11-14-2022 Referral to service [facility] Start: 11-14-2022 Speech therapy assessment [facility] Start: 11-14-2022 Tobacco use cessatio n education [facility] Start: 11-14-2022 [facility] Start: 11-14-2022 Verification routine [facility] Start: 11-14-2022 Admission procedure [facility] Start: 11-14-2022 Patient referral to dietitian [facility] Start: 09-18-2022 Patient referral [facility] Work Phone: Start: 09-18-2022 [place] and lambda light chains [facility] Start: 09-18-2022 Thiamine measurement [facility] Start: 09-17-2022 [facility] Start: 03-26-2020 Hepatitis B screening URINE ALBUMIN:CREATININE RATIO [facility] Start: 03-26-2020 Hepatitis B surface antibody level LDL CHOLESTEROL [facility] Start: 11-30-2019 Influenza vaccination INFLUENZA (#1) [facility] Start: 10-01-2019 [object Object] [facility] Start: 09-25-2019 HbA1c (Bld) [Mass fraction] HBA1C [facility] Start: 07-07-2018 Hepatitis C antibody , confirmatory test DILATED RETINAL EXAM [facility] Start: 07-20-2013 DTaP/Tdap/Td Vaccine s (1 - Tdap) DTaP/Tdap/Td Vaccines (1 - Tdap) [facility] Start: 12-05-2010 SHINGRIX VACCINE (2 of 3) CONTRERAS GRIX VACCINE (2 of 3) [facility] Start: 12-05-2010 Zoster Vaccines (2 of 3) Zoste r Vaccines (2 of 3) [facility] Start: 1995 RSV Immunization age d 60 or older (1 - 1-dose 60+ series) RSV Immunization aged 60 or older (1 - 1-dose 60+ series) [facility] Start: 1947 Depression Screening Depression Scre ening [facility] Start: 1935 Screening for osteoporosis Bone Dens ity Scan [facility] Albumin [Moles/volum e] in Serum or Plasma [facility] Albumin/Globulin ratio [facility] Anion gap in Serum or Plasma [facility] Anion gap measurement [facility] Ankle brachial pressure index [facility] Blood ammonia measurement [facility] Blood ammonia measurement [facility] BUN/Creatinine ratio [facility] BUN/Creatinine ratio [facility] Calcium [Mass/volume ] in Serum or Plasma [facility] Calcium [Mass/volume ] in Serum or Plasma [facility] Carbon dioxide, tota l [Moles/volume] in Central venous blood [facility] Carbon dioxide, tota l [Moles/volume] in Serum or Plasma [facility] Chloride [Moles/volu me] in Serum or Plasma [facility] Cholesterol [Mass/vo lume] in Serum or Plasma [facility] Cholesterol [Mass/vo lume] in Serum or Plasma [facility] Cholesterol in HDL [Mass/volume] in Serum or Plasma [facility] Cholesterol in HDL [Mass/volume] in Serum or Plasma [facility] Cholesterol in LDL [Mass/volume] in Serum or Plasma [facility] Creatinine [Mass/vol ume] in Serum or Plasma [facility] Creatinine [Moles/vo lume] in Serum or Plasma [facility] Electrophoresis: [id number] [facility] Electrophoresis: andrew ma globulin [facility] Erythrocyte mean cor puscular volume determination [facility] Globulin measurement [facility] Glucose [Mass/volume ] in Serum or Plasma [facility] Glucose [Mass/volume ] in Serum or Plasma [facility] Hematocrit [Volume F raction] of Blood [facility] Hematocrit [Volume F raction] of Blood [facility] Hemoglobin [Mass/vol ume] in Blood [facility] Hemoglobin [Mass/vol ume] in Blood [facility] Hepatic function panel [facility] IgA [Mass/volume] in Serum or Plasma [facility] IgG [Mass/volume] in Serum or Plasma [facility] IgM [Mass/volume] in Serum or Plasma [facility] [place]/lambda light c nat ratio [facility] Lambda light chains. free [Mass/volume] in Serum or Plasma [facility] Lamotrigine measurement [facility] Leukocytes [#/volume ] in Blood [facility] Leukocytes [#/volume ] in Blood [facility] Lipid 1996 panel - S mile or Plasma [facility] Low density lipoprot ein cholesterol measurement [facility] Mean corpuscular hem oglobin concentration determination [facility] Mean corpuscular hem oglobin concentration determination [facility] Mean corpuscular hem oglobin determination [facility] Mean corpuscular hem oglobin determination [facility] Measurement of renal function [facility] Measurement of renal function [facility] MR Cervical spine [facility] MR Lumbar spine [facility] Neutrophil count [facility] Neutrophil percent differential count [facility] Patient Education [facility] Work Phone: Patient referral [facility] Work Phone: Platelets [#/volume] in Blood [facility] Platelets [#/volume] in Blood [facility] Potassium [Moles/vol ume] in Serum or Plasma [facility] Potassium measurement [facility] Protein electrophore sis panel - Serum or Plasma [facility] Red blood cell count [facility] Red blood cell count [facility] Red cell distributio n width determination [facility] Red cell distributio n width determination [facility] Serum chloride measurement [facility] Serum protein electrophoresis [facility] Sodium [Moles/volume ] in Serum or Plasma [facility] Sodium measurement [facility] Total cholesterol:HD L ratio measurement [facility] Triglycerides measurement [facility] Triglycerides measurement [facility] Troponin T.cardiac [Mass/volume] in Serum or Plasma by High sensitivity method [facility] Troponin T.cardiac [Mass/volume] in Serum or Plasma by High sensitivity method [facility] Urea nitrogen [Mass/ volume] in Serum or Plasma [facility] Urea nitrogen [Mass/ volume] in Serum or Plasma [facility] Urine culture Urine Culture [facility] Urine kappa light ch ain measurement [facility] US Carotid arteries [facility] VLDL cholesterol measurement [facility] VLDL cholesterol measurement [facility] Hernandez [facility] Immunizations Immunization Date Immunization Notes Care Provider Fa cility 06-02-2020 Steph (Moderna) Dr. Rosemary mixon Work Phone: [facility] 05-05-2020 Covdeena (Moderna) Dr. Rosemary mixon Work Phone: [facility] 04-27-2019 influenza, high dose seasonal, preservative-free Alexia Adamsi [facility] 01-05-2018 influenza, high dose seasonal, preservative-free Alexia Orinfadinéstori [facility] 12-12-2014 influenza, seasonal, injectable [facility]2014 pneumococcal conjuga te vaccine, 13 valent Alexia Orinfadinéstordonna [facility] 12-06-2013 influenza, seasonal, injectable [facility] 07-19-2013 tetanus and diphther ia toxoids, adsorbed, preservative free, for adult use (2 Lf of tetanus toxoid and 2 Lf of diphtheria toxoid) [place] [facility] 01-25-2013 influenza, seasonal, injectable Alexia [facility]infadin[facility] 01-13-2012 influenza, seasonal, injectable [facility]ia Lisoct[facility] 02-11-2011 influenza, seasonal, injectable [facility] 10-10-2010 zoster vaccine, live Jo Martinez [facility] 03-31-2006 pneumococcal polysaccharide vaccine, 23 valent [place]ia [facility] Payers Date Payer Category Payer Self-pay [id number] 2023 Medicare [employer] MEDICARE UHC AARP MEDICARE ADVANTAGE [id number] 2023-Present [phone] [address] [address] [place] [address] Medicare HMO [id number] [id number] 2023 Unknown [id number] 2005 Unknown [id number] .2.840.183692.1.13.159.2.7.3 .078387.315 1935 Unknown [id number] 2.16.840.1.074415.3.579.2.278 1935 Unknown [id number] 2.16.840.1.910581.3.579.2.278 1935 Unknown [id number] 2..840.1.898090.3.579.2.278 1935 Unknown [id number] 2.16.840.1.871247.3.579.2.278 1935 Unknown [id number] 2.840.1.639304.3.579.2.278 1935 Unknown [id number] 2.840.1.685164.3.579.2.278 1935 Unknown [id number] 2.0.1.082327.3.579.2.278 Medicare MEDICARE PART A B [id number] Unknown [id number] Unknown [id number] 2.840.1.047775.3.579.2.462 Unknown [id number] 2.840.1.920276.3.579.2.462 Unknown [id number] .0.1.936966.3.579.2.462 Unknown [id number] 2.840.1.317619.3.579.2.462 Unknown [id number] 2.840.1.403142.3.579.2.462 Unknown [id number] 2.840.1.564801.3.579.2.462 Unknown [id number] 2.840.1.505037.3.579.2.462 Unknown [id number] 2.840.1.302622.3.579.2.462 Unknown [id number] 2.16.840.1.645275.3.579.2.462 Unknown [id number] 2.16.840.1.345029.3.579.2.462 Unknown [id number] 2.16.840.1.931938.3.579.2.462 Unknown [id number] 2.16.840.1.592171.3.579.2.462 Unknown [id number] 2.16.840.1.825124.3.579.2.462 Unknown [id number] 2.16.840.1.544187.3.579.2.462 Unknown [id number] 2.840.1.464925.3.579.2.462 Unknown [id number] 2.840.1.128143.3.579.2.462 Unknown [id number] 2.840.1.723328.3.579.2.462 Unknown [id number] 2.840.1.252120.3.579.2.462 Unknown [id number] 2.840.1.806095.3.579.2.462 Unknown [id number] 2.840.1.519553.3.579.2.462 Unknown [id number] 2.840.1.090731.3.579.2.462 Unknown [id number] 2.840.1.426926.3.579.2.462 Unknown [id number] 2.16.840.1.708595.3.579.2.462 Unknown [id number] 2.16.840.1.476171.3.579.2.462 Unknown [id number] 2.16.840.1.207057.3.579.2.462 Unknown [id number] 2.16.840.1.147433.3.579.2.462 Unknown [id number] 2.840.1.288859.3.579.2.462 Unknown [id number] 2.16.840.1.376284.3.579.2.462 Unknown [id number] 2.16.840.1.897276.3.579.2.462 Unknown [id number] 2.16.840.1.830061.3.579.2.462 Unknown [id number] 2.16.840.1.686903.3.579.2.462 Unknown [id number] 2.16.840.1.004853.3.579.2.462 Unknown [id number] 2.16.840.1.765791.3.579.2.462 Unknown [id number] 2.16.840.1.114529.3.579.2.462 Unknown [id number] 2.16.840.1.809904.3.579.2.462 Unknown [id number] 2.16.840.1.800515.3.579.2.462 Unknown [id number] 2.16.840.1.112770.3.579.2.462 Unknown [id number] 2.16.840.1.069240.3.579.2.462 Unknown [id number] 2.16.840.1.369814.3.579.2.462 Unknown [id number] 2.16840.1.922569.3.579.2.462 Unknown [id number] 2.16840.1.673167.3.579.2.462 Unknown [id number] 2.16840.1.671715.3.579.2.462 Unknown [id number] 2.16840.1.567772.3.579.2.462 Social History Date Type Detail Facility Start: 05-13-2019 End: 09-11-2024 Tobacco smoking status NHIS Former smoker [facility] End: 03-20-2008 History of tobacco use Current smoker [facility] End: 03-20-2008 History of tobacco use Cigarette Smoker [facility] Start: 05-13-2019 End: 06-17-2023 Cigarettes smoked current (pack per day) - Reported [facility] Start: 05-13-2019 End: 06-18-2023 Tobacco use and exposure Never used [facility] Start: 05-13-2019 Alcohol intake Current non-dr heel edge inker machine of alcohol (finding) [facility] Start: 1935 Sex Assigned At Not on file [facility] Exposure to SARS-CoV -2 (event) Not sure [facility] Start: 02-11-2022 End: 06-16-2023 Tobacco smoking status NHIS Unknown if ever smoked [facility] Start: 04-19-2020 Rare [facility] Start: 04-19-2020 None [facility] Start: 04-19-2020 Spouse/ Signif icant Other [facility] Start: 08-11-2020 Non-smoker [facility] Start: 1935 Sex Assigned At Female [facility] Start: 06-18-2023 Tobacco smoking stat us NHIS Never smoked tobacco [facility] Start: 06-17-2023 End: 06-18-2023 [facility] authorGEN [facility] Post.Bid.Ship Has the [employer], [employer], [employer], or water company threatened to shut off services in your home in past 12Mo No [facility] How often to you hav e a drink containing alcohol? Never [facility] How many standard drinks containing alcohol do you have on a typical day? Patient does not drink [facility] Post.Bid.Ship (I/We) worried wheth er (my/our) food would run out before (I/we) got money to buy more. Never true [facility] Start: 06-04-2024 End: 07-20-2024 Sex Female (finding) [facility] Medical Equipment Procedure Code Equipment Code Equipment [...] instructed Bio Chips Cancellous 30cc 1-8 - [id number] - [id number]_imp Start: 06-18-2023 Plate Hum Dist 2.7/3.5 83953_imp Start: 06-18-2023 Plate Va Olcrn 2.7/3.5 2h R - [id number]_imp Start: 06-18-2023 Plate Va M-D-Hum 2.7/3.5 1h L - [id number]_imp Start: 06-18-2023 Screw Lck Va 2.2q35f-M T8 Rcs - [id number]_imp Start: 06-18-2023 Screw Lck Va 2.7x58 S-T T8 Rcs - [id number] 83965_imp Start: 06-18-2023 Screw Lck Va 2.5y19i-N T8 Rcs - [id number] 83966_imp Start: 06-18-2023 Screw Lck Va 2.9b92n-X T8 Rcs - [id number] 83967_imp Start: 06-18-2023 Screw Lck Va 2.7c04a-A T8 Rcs - [id number] 83968_imp Start: 06-18-2023 Screw Lck Va 2.7x50 S-T T8 Rcs - [id number] 83969_imp Start: 06-18-2023 Screw Crtx 3.5x22mm S-T - [id number] 83971_imp Start: 06-18-2023 Screw Crtx 3.5x26mm S-T - [id number]_imp Start: 06-18-2023 Screw Lck Va 2.1t55a-Y T8 Rcs - [id number] 83975_imp Start: 06-18-2023 Screw Lck Va 2.0r20f-L T8 Rcs - [id number] 83976_imp Start: 06-18-2023 Screw Lck Va 2.7x56 S-T T8 Rcs - [id number] 83956_imp Start: 06-18-2023 Screw Crtx 3.5x28mm S-T - [id number] 83957_imp Start: 06-18-2023 Screw Crtx 3.5x30mm S-T - [id number] 83958_imp Start: 06-18-2023 Screw Lck Va 2.8p18k-G T8 Rcs - [id number] 83959_imp Start: 06-18-2023 Screw Lck Va 2.7w43x-R T8 Rcs - [id number] 83961_imp Start: 06-18-2023 Goals Date Patient Goal Desired Activity /State Functional Status Date Assessment Result Facility 09-11-2024 Functional status Ambulates [facility] Work Phone: 12-28-2022 Functional status Ambulates [facility] Work Phone: 11-15-2022 Functional status Chair [facility] Work Phone: Mental Status Date Assessment Result Facility 09-11-2024 Cognitive function Voice/Name [facility] Work Phone: 09-10-2024 Cognitive function Voice/Name [facility] Work Phone: 09-08-2024 Cognitive function Voice/Name [facility] Work Phone: 12-28-2022 Cognitive function Voice/Name [facility] Work Phone: 11-18-2022 Cognitive function Level Of Cons ciousness Awake;Alert;Appropriate [facility] Work Phone: 11-15-2022 Cognitive function Appropriate;Cooperativ e [facility] Work Phone: 11-14-2022 Cognitive function Voice/Name [facility] Work Phone: 11-14-2022 Cognitive function Voice/Name [facility] Work Phone: 09-08-2022 Cognitive function Awake;Alert;A ppropriate;Follow s Commands [facility] Work Phone: 02-11-2022 Cognitive function Awake;Alert;Appropriat e [facility] Work Phone: Clinical Notes 02-14-2007 to 09-11-2024 Note Date & Type Note Facility 09-11-2024 Discharge summary [facility] 09-11-2024 Procedure note [facility] 09-11-2024 Discharge summary [facility] 09-11-2024 Discharge summary Note Date/Time September 11, 2024 2:40pm [facility] Medical Records Department [address] [place] [address] Instructions for Home/Discharge Instructions 09/11/24 1214 MR#: [id number] Acct: [id number] Name: EZRA GONZALEZ Rep #:[id number] : 1935 89 From: Matthew carbajal DO [...] Ashu Leonard MD ~ Signed [facility] Work Phone: 1(438) 108-310506-14-2025 Discharge summary Author Matthew [facility] Note Date/Time September 11, 2024 3:14 pm [facility] Medical Records Department [address] [place] [address] Discharge Summary 09/11/24 1214 MR#: [id number] Acct: [id number] Name: EZRA GONZALEZ Rep #:[id number] : 1935 89 From: Matthew carbajal DO PCP: Dr. Kvng Ochoa DO Status:ADM MARIELOS Location: [place] [id number] Providers Date of Admission: 09/10/24 Date [...] 89-year-old female who presented to [facility] ED on 09/10/2024 with dysarthria. 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 Reading Location: [id number] Brain MRI 09/10/24 16:07 IMPRESSION: Atrophy and mild microvascular changes Reading Location[facility]/C Instructions DC O2, CPAP, BIPAP Needs [...] Self Care Charges/Coding Visit Charges Inpatient E&M: 54269 Disch Hosp >30min 09/11/24 1444 <Electronically signed [...] DO; Dr. Kvng Ochoa DO ~* Signed [facility] Work Phone: 1(557) 935-270906-14-2025 Progress note Author Lenin Tamez [facility] Note Date/Time September 11, 2024 10:4 1am [facility] Medical Records Department [address] [place] [address] Progress Note - Neurology 09/11/24 1035 MR#: [id number] Acct: [id number] Name: EZRA GONZALEZ Rep #:[id number] : 1935 89 From: Lenin Morel PCP: Dr. 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 MRI brain - no acute stroke. LDL-100 Diagnosis: TIA Plan: Continue coumadin and statin. Check A1c. Follow up EEG. Continue lamictal.Follow up with neurology as an outpatient. OT/PT/POST ADOPTION COORDINATOR. Sign off for now and please call [...] days ago was 2.9 and 2.4 at [place]) and seizure on lamictal (had last GTC on Friday) p/w transient dysarthria. History is obtained from patient. On my exam, NIHSS-0 and patient reports feeling better. She follows with Dr. Juarez with neurology. CT head- no acute intracranial process. 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 MRI brain - no acute stroke. 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 Freq: [id number] Protocol: Activity Type Activity Date Activity User E-sign Co-sign Detail Recorded Client Recorded Date Recorded By Document 09/11/24 09:08 YOVANY [id number] 09/11/24 09:08 YOVANY 09/11/24 09:08 NIH Stroke [...] (if applicable): CC: ~ Signed [facility] Work Phone: 1(289) 583-128706-14-2025 [facility] Medical Records Department [address] [place] [address] Discharge Summary 09/11/24 1214 MR#: [id number] Acct: [id number] Name: EZRA GONZALEZ Rep #: [id number] : 1935 89 From: Matthew Oro DO PCP: Dr. Kvng Ochoa DO Status:ADM MARIELOS Location: [place] [address] Providers Date of Admission: 09/10/24 Date of [...] 89-year-old female who presented to [facility] ED on 09/10/2024 with dysarthria. Short hospital [...] distended Anastasia (more content not included)...[facility]06-14-2025 Progress note [facility] Medical Records Department [address] [place] [address] Progress Note - Neurology 09/11/24 1035 MR#: [id number] Acct: [id number] Name: EZRA GONZALEZ Rep #:[id number] : 1935 89 From: Lenin Morel PCP: Dr. Kvng Ochoa, DO Status:ADM MARIELOS Location: [place] [address] Assessment and Plan: Neuro Assessment/Plan Telestroke (Audio/Video Encounter) 89 y/o woman with h/o DM, HTN, Afib on coumadin (INR 2 days ago was 2.9 and 2.4 at [place]) and seizure on lamictal (had last GTC on Friday) p/w transient dysarthria. History is obtained from patient. On my exam, NIHSS-0 and patient reports feeling better. She follows with Dr. Juarez with neurology. CT head- no acute intracranial process. 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 MRI brain - no acute stroke. LDL-100 Diagnosis: TIA Plan: Continue coumadin and statin. Check A1c. Follow up EEG. Continue lamictal.Follow up with neurology as an outpatient. OT/PT/POST ADOPTION COORDINATOR. 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 MRI brain - no acute stroke. 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 NO ACUTE FINDINGS. Red Alert: Chronic changes. The critical information above was relayed directly by me by telephone to Teri Garcia on 09/10/2024 at 2:05 pm with readback verification. Reading Location: [facility] Head/Neck CTA 09/10/24 13:55 IMPRESSION: Calcific plaque [...] 3:01 pm with readback verification. Reading Location: [id number] Brain MRI 09/10/24 16:07 IMPRESSION: Atrophy and mild microvascular changes Reading Location: [facility] Rhythm Strip Rhythm Strip: A-fib Rate: 75 [...] and with change in RN caregiver. Freq: [id number] Protocol: Activity Type Activity Date Activity User E-sign Co-sign Detail Recorded Client Recorded Date Recorded By Document 09/11/24 09:08 YOVANY [id number] 09/11/24 09:08 YOVANY 09/11/24 09:08 NIH Stroke [...] (if applicable): CC: ~ Signed [facility]06-13-2025 History and physical note [facility] Note Date/Time September 10, 2024 5:27 pm [facility] Medical Records Department [address] [place] [address] H&P Exam - Hospitalist 09/10/24 1603 MR#: [id number] Acct: [id number] Name: EZRA GONZALEZ Rep #:[id number] : 1935 89 From: Matthew carbajal DO PCP: Dr. Kvng Ochoa, DO Status:ADM MARIELOS Location: [place] [address] HPI - General General Date of Admission: 09/10/24 Date of Service: 09/10/24 Chief Complaint: Dysarthria HPI Narrative EZRA GONZALEZ, is a 89 F who presented to [facility] ED on 09/10/2024 with dysarthria. Patient lives at assisted living at [place]. Has history of seizures and is on [...] any other acute concerns at this time. [facility] Medical History Closed fracture of right distal [...] (Auto) 72.3 H, Lymph % (Auto) 16.6 L,[place] % (Auto) 9.1, Eos % (Auto) 1.2, [...] Clarity Clear, Urine pH 5.0, Ur Specific [place] 1.010, Urine Protein 30 H, Urine Glucose [...] 2:05 pm with readback verification. Reading Location: [id number] Head/Neck CTA 09/10/24 13:55 IMPRESSION: Calcific plaque [...] 3:01 pm with readback verification. Reading Location: [id number] Assessment & Plan Assessment/Plan (1) Difficulty with speech: PLAN: Plan Patient is an 89-year-old female who presented to [facility] ED on 09/10/2024 with dysarthria. 1. Episode [...] 55 minutes. Charges/Coding Visit Charges Inpatient E&M: 98591 Init Hosp L2 09/10/24 1727 <Electronically signed by Matthew Oro DO> Cosigner Signature (if applicable): CC: Dr. Matthew Oro DO; Dr. Kvng Ochoa DO~ Signed [facility] Work Phone: 1(348) 982-942606-13-2025 Discharge summary Author [facility] Note Date/Time September 10, 2024 4:17 pm [facility] Medical Records Department [address] [place] [address] Emergency Department Summary 09/10/24 MR#: [id number] Acct: [id number] Name: EZRA GONZALEZ Rep #:[id number] : 1935 89 From: Teri Echeverria PCP: [...] son Wilfredo (her eldest son) phone number [phone]. He states that she follows with Dr. 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 He also tells me that he talk to her about 615 this morningand she seemed a little off with her mentation as well as her pronunciation. [facility] Medical History Closed fracture [...] 72.3 H Lymph % (Auto) 16.6 L [place] % (Auto) 9.1 Eos % (Auto) 1.2 [...] Clarity Clear Urine pH 5.0 Ur Specific [place] 1.010 Urine Protein 30 H Urine Glucose [...] 2:05 pm with readback verification. Reading Location: [id number] Head/Neck CTA 09/10/24 13:55 IMPRESSION: Calcific plaque [...] 3:01 pm with readback verification. 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 Level of Consciousness: [...] No aphasia; normal 10. Dysarthria: 1 = Rwhh-dy-olzovbsy dysarthria; 11. Extinction and Inattention: 0 - [...] your Primary Care Provider. Call [facility] ([phone]) or report to the closest Emergency Room. Call 911 if necessary. 09/10/24 1617 <Electronically signed by Teri Garcia DO> Cosigner Signature (if applicable): CC: Dr. 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 22 8:14am Lower extremity edema acute Oct 8:14am Atherosclerotic heart diseas e of [place] coronary artery without angina pectoris chronic November 22 8:14am Essential (primary) hypertension chr onic November 22, 2024 8:14am Hyperlipidemia chronic October 8:14am [facility] Work Phone: 1(160) 867-615106-13-2025 Evaluation note* Diagnosis Onset Date Resolution Status Admit Date Difficulty with speech resolved Ju ne 2024 4:03pm Dementia acute September 13 2:04pm 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 2:04pm Urinary tract infection acute J une 2024 2:04pm Transient ischemic attack resolved September 13, 2024 2:04pm halfway current use of anticoagulant acute November 22 8:14am Lower extremity edema acute Oct 8:14am Persistent atrial fibrillation acute November 22, 2024 8:14am Atherosclerotic heart diseas e of [place] coronary artery without angina pectoris chronic November 22 8:14am Essential (primary) hypertension chr onNovember 22, 2024 8:14am Hyperlipidemia chronic October 8:14am [facility] Work Phone: 1(696) 358-674406-13-2025 History and physical note [facility] Medical Records Department [address] [place], [place] [id number] H&P Exam - Hospitalist 09/10/24 1603 MR#: [id number] Acct: [id number] Name: EZRA GONZALEZ Rep #:[id number] : 1935 89 From: Matthew carbajal DO PCP: Dr. Kvng Ochoa, DO Status:ADM MARIELOS Location: [place] [address] HPI - General General Date of Admission: 09/10/24 Date of Service: 09/10/24 Chief Complaint: Dysarthria HPI Narrative EZRA GONZALEZ, is a 89 F who presented to [facility] ED on 09/10/2024 with dysarthria. Patient lives at assisted living at [place]. Has history of seizures and is on [...] any other acute concerns at this time. [facility] Medical History Closed fracture of right distal [...] %(Auto) 72.3 H, Lymph % (Auto) 16.6 L,Crittenden % (Auto) 9.1, Eos % (Auto) 1.2, [...] Clarity Clear, Urine pH 5.0, Ur Specific Yosemite 1.010, Urine Protein 30 H, Urine Glucose [...] 2:05 pm with readback verification. Reading Location: [id number] Head/Neck CTA 09/10/24 13:55 IMPRESSION: Calcific plaque [...] 3:01 pm with readback verification. Reading Location: [id number] Assessment & Plan Assessment/Plan (1) Difficulty with speech: PLAN: Plan Patient is an 89-year-old female who presented to [facility] ED on 09/10/2024 with dysarthria. 1. Episode [...] 55 minutes. Charges/Coding Visit Charges Inpatient E&M: 72478 Init Hosp L2 09/10/24 1727 Cosigner Signature (if applicable): CC: Dr. Matthew Oro DO; Dr. Kvng Ochoa DO~ Signed [facility]06-13-2025 Discharge summary [facility] Medical Records Department [address] [place] [address] Emergency Department Summary 09/10/24 MR#: [id number] Acct: [id number] Name: EZRA GONZALEZ Rep #:[id number] : 1935 89 From: Teri Echeverria PCP: [...] son Wilfredo (her eldest son) phone number [phone]. He states that she follows with Dr. 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 He also tells me that he talk to her about 615 this morningand she seemed a little off with her mentation as well as her pr onunciation. [facility] Medical History Closed fracture [...] 72.3 H Lymph % (Auto) 16.6 L Crittenden % (Auto) 9.1 Eos % (Auto) 1.2 [...] Clarity Clear Urine pH 5.0 Ur Specific Yosemite 1.010 Urine Protein 30 H Urine Glucose [...] 3:01 pm with readback verification. Reading Location: [id number] Rhythm Strip Rhythm Strip: A-fib Rate: 75 Ectopy: None EKG Initial EKG: Attestation: I personally reviewed and interpreted this EKG as follows: Interpretation: Atrial Fibrillation Comments: Atrial fibrillation at a rate of 75 bpm Left axis deviation Moderate voltage criteria for LVH Normal ST segments Management Discussion w/another healthcare provider: Hospitalist, Spray Ii Painter and Radiologist Discharge Plan Triage Chief Complaint: Stroke Alert ED Provider: Teri Garcia Dx/Rx/DC Orders Clinical Impression: Difficulty with speech, halfway current use of anticoagulant, Atrial fibrillation, chronic, [...] or as directed Primary Care Provider: Kvng Ochao Referrals: Kvng Ochoa DO [Primary Care Provider] - Print Language: Cymraes Disposition Disposition: Acute Care Hospital [facility] NIHSS NIHSS 1a. Level of Consciousness: [...] No aphasia; normal 10. Dysarthria: 1 = Ustm-pm-zznxcyww dysarthria; 11. Extinction and Inattention: 0 - [...] your Primary Care Provider. Call [facility] ([phone]) or report tothe closest Emergency Room. Call 911 if necessary. 09/10/24 1617 Cosigner Signature (if applicable): CC: Dr. Kvng Ochoa, ~ Signed [facility]06-13-2025 Radiology Diagnostic study note [facility] Imaging Services [address] [place], [place] [address] STROKE CTA Head AND Neck W/Con MR#: [id number] Acct: [id number] Name: EZRA GONZALEZ Rep #: [id number] : 1935 F 89 From: Jian Gipson MD PCP: Dr. Kvng Ochoa DO Status: REG ER Study:STROKE CTA Head AND Neck W/Con Date of Exam: 09/10/24 Exam# [id number] Ordering Dr: Adeel Garcia DO PROCEDURE: STROKE [...] RIGHT Vertebral: Unremarkable. LEFT Vertebral: Unremarkable. Anatomy: Morongo of Monique anatomy is normal. Aneurysm or [...] 3:01 pm with readback verification. Reading Location: [id number] CC: Dr. Teri Garcia DO; Dr. Kvng Ochoa DO ~ Welder Production Line Gas: Signed [facility]06-13-2025 Radiology Diagnostic study note [facility] Imaging Services [address] [place] [address] STROKE Brain/Head without Cont MR#: [id number] Acct: [id number] Name: EZRA GONZALEZ Rep #: [id number] : 1935 F 89 From: Jian Gipson MD PCP: Dr. Kvng Ochoa DO Status: REG ER Study:STROKE Brain/Head without Cont Date of Exam: 09/10/24 Exam# [id number] Ordering Dr: Adeel Garcia DO PROCEDURE: STROKE [...] MIKE CC: Dr. Teri Garcia DO; Dr. Kvng Ochoa DO ~ Welder [employer] Line Gas: Signed [facility]06-11-2025 Discharge summary [facility] Medical Records Department [address] [place] [address] Emergency Department Summary 09/08/24 MR#: [id number] Acct: [id number] Name: EZRA GONZALEZ Rep #:[id number] : 1935 89 From: Anoop Blackmon MD [...] creatinine ratio of 35:1. Glucose is slight [id number] with a normal CO2 anion gap. Labs: Laboratory Results - last 24 hr 09/08/24 12:50 WBC 13.6 H RBC 4.40 Hgb 13.8 Hct 41.4 MCV 94.1 MCH 31.4 MCHC 33.3 RDW Std Deviation 45.2 H RDW Coeff of Sumeet 13.2 Plt Count 326 MPV 10.8 Immature Gran % (Auto) 0.400 Neut % (Auto) 75.9 H Lymph % (Auto) 16.2 L Crittenden % (Auto) 6.6 Eos % (Auto) 0.7 [...] with her neurologist Dr. Juarez Print Language: Cymraes Disposition Disposition: Home, Self Care What to do if you have Problems For any increased pain, shortness of breath, bleeding, nausea or vomiting, chestpain, or any unexpected problems, contact your Primary Care Provider. Call [facility] ([phone]) or report tothe closest Emergency Room. Call 911 if necessary. 09/08/24 7819 Cosigner Signature (if applicable): CC: Dr. Kvng Ochoa MD ~ Signed [facility]06-11-2025 Discharge summary Author Anoop Blackmon [facility] Note Date/Time September 08, 2024 3:16 pm [facility] Medical Records Department [address] [place] [address] Emergency Department Summary 09/08/24 MR#: [id number] Acct: [id number] Name: EZRA GONZALEZ Rep #:[id number] : 1935 89 From: Anoop Blackmon MD [...] creatinine ratio of 35:1. Glucose is slight [id number] with a normal CO2 anion gap. Labs: Laboratory Results - last 24 hr 09/08/24 12:50 WBC 13.6 H RBC 4.40 Hgb 13.8 Hct 41.4 MCV 94.1 MCH 31.4 MCHC 33.3 RDW Std Deviation 45.2 H RDW Coeff of Sumeet 13.2 Plt Count 326 MPV 10.8 Immature Gran % (Auto) 0.400 Neut % (Auto) 75.9 H Lymph % (Auto) 16.2 L Crittenden % (Auto) 6.6 Eos % (Auto) 0.7 [...] with her neurologist Dr. Juarez Print Language: Cymraes Disposition Disposition: Home, Self Care What to do if you have Problems For any increased pain, shortness of breath, bleeding, nausea or vomiting, chestpain, or any unexpected problems, contact your Primary Care Provider. Call [facility] ([phone]) or report to the closest Emergency Room. Call 911 if necessary. 09/08/24 4337 <Electronically signed by Anoop Blackmon MD> Cosigner Signature (if applicable): CC: Dr. Kvng Ochoa MD ~ Signed [facility] Work Phone: 1(752) 174-725204-03-2025 Evaluation note* Diagnosis Onset Date Resolution Status Admit Date Longstanding persistent atrial fibrillation acute July 01 10:35am Essential (primary) hypertension chronic July 01, 2024 10:35am History of coronary artery stent placement February 14, 2007 resolved July 01 10:35am [facility] Work Phone: 1(526) 896-504904-03-2025 Evaluation note* Diagnosis Onset Date Resolution Status Admit Date Longstanding persistent atrial fibrillation acute July 01 10:35am Essential (primary) hypertension chronic July 01, 2024 10:35am History of coronary artery stent placement February 14, 2007 resolved July 01 10:35am Difficulty with speech acute [facility] 2024 4:03pm [facility] Work Phone: 1(129) 526-443104-03-2025 Evaluation note* Diagnosis Onset Date Resolution Status Admit Date Longstanding persistent atrial fibrillation acute July 01 10:35am Essential (primary) hypertension chronic July 01, 2024 10:35am History of coronary artery stent placement February 14, 2007 resolved July 01 10:35am Difficulty with speech acute [facility] 2024 4:03pm 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 2:04pm [facility] Work Phone: [phone]) 725-531704-03-2025 Evaluation note* Diagnosis Onset Date Resolution Status Admit Date Longstanding persistent atrial fibrillation acute July 01 10:35am Essential (primary) hypertension chronic July 01, 2024 10:35am History of coronary artery stent placement February 14, 2007 resolved July 01 10:35am Difficulty with speech resolved [facility] 2024 4:03pm 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 2:04pm [facility] Work Phone: [phone]) 789-846902-10-2025 Evaluation note* Diagnosis Onset Date Resolution Status Admit Date Dementia acute May 10, 2024 2:34pm Epilepsy acute May 10, 2024 2:34pm Transient ischemic attack resolved May 10, 2024 2:34pm [facility] Work Phone: 1(677) 186-114702-10-2025 Evaluation note* Diagnosis Onset Date Resolution Status Admit Date Dementia acute May 10, 2024 2:34pm Epilepsy acute May 10, 2024 2:34pm Transient ischemic attack resolved May 10, 2024 2:34pm Longstanding persistent atrial fibrillation acute July 01, 025 10:35am Essential (primary) hypertension chronic July 01, 2024 10:35am History of coronary artery stent placement February 14, 2007 resolved July 01, 2024 10:35am [facility] Work Phone: 1(905) 429-788703-22-2024 NoteStart PACC Note Home Health Referral Educated patient on Home Care and services available. Patient offered choice of available HHC and agreeable to PT/OT services with [facility] - Home Care. Care [...] is noted as yes - consider a CLINICAL LABORATORY DIRECTOR evaluation once the patient returns home. START PATIENT REGISTRATION INFORMATION Order Information Order Signing Physician: Connie Perez APRN * Service Ordered RN ?: No Service Ordered PT ?: Yes Service Ordered OT ?: Yes Service Ordered ST ?: No Service Ordered CLINICAL LABORATORY DIRECTOR?:No Service Ordered SENIOR TECHNOLOGIST?: No Following Physician: ALEXANDRA HAGEN Following Physician Overseeing Physician: ALEXANDRA HAGEN (Required for Residents only) Agreeable to Follow? No Date/Time of Call 06/20/23 2:40 PM, Spoke with: BRYAN FOR OFFICE-CONFIRMED WITH JOSEP THIS IS HER PHYSICAN AND CAN SEE RECENT NOTES IN [facility] Care Coordination Same Day SOC?: No Primary Care Physician: ALEXANDRA HAGEN Primary Care Physician Primary Care Physician Address: [address] [place] [address] / [facility] [address] Visit Instructions: N/A Service Discharge Location Type: Assisted Living Service Facility Name: [facility] Floor Facility: N/A Service Room No: 105 Demographics Patient Last Name: Lisa Patient First Name: Ezra Language/Communication Barrier: NONE Service Address: [address] [place] [address] [address] Service City: [facility] ST: [place] Service ZIP: [address] Service (home) Other phone numbers: No relevant phone numbers on file. Emergency Contact: Extended Emergency Contact Information Primary Emergency Contact: Patito Cuba Mobile Relation: Son Glaze Mixer needed? No Secondary Emergency Contact: Ty [place] Mobile Relation: Son Admission Information Admit Date: 06/16/2023 Patient status at discharge: Inpatient Admitting Diagnosis: Closed displaced fracture of medial condyle of right humerus, initial encounter [S42.662I] Caregiver Information Caregiver First Name: AMANUEL Caregiver Last Name: AMANUEL Caregiver Relationship to Patient NA Caregiver Phone Number: NA Caregiver Notes: N/A [employer] List No END PATIENT REGISTRATION INFORMATION Pt [...] medications. Discharge Date: 06/20/23 Referral Source-PACC: (Hospital/Unit): [facility] / E7-707/E7-707 A End PACC [facility]03-22-2024 History of Present illness Narrative* Juanjo Villalba RN - 06/20/2023 3:51 PM EDT Dc via DM cot to Josep MCARTHUR with all belongings * Juanjo Villalba RN - 06/20/2023 3:01 PM EDT Called report to Maryanne junior * Dc Lombardi - 06/20/2023 2:26 PM EDT [facility] Anticoagulation Management Service (RIA) Inpatient Warfarin Consult HPI: Ezra Gonzalez is a 87 y.o. female admitted on 06/16/2023 for Closed displaced fracture of medial condyle of right humerus, initial encounter [S42.415Q] History reviewed. No pertinent past medical history. [...] patient can be classified as high risk ([id number] = 8). 2. Monitor for s/s of bleeding and drug interactions. Will adjust dose accordingly 3. RIA will manage while inpatient Dc Lombardi, JpD Candidate Jp BolanosD, BCPS RIA is available daily [phone] via Duel [employer]. If no response on Epic Chat then please page [phone]. * Shayne Fonseca MD - 06/20/2023 6:05 [...] off at this time. Please page resident product safety consultant on Secure Chat with concerns or [...] original note were not included. PHYSICAL THERAPY [facility] Initial Evaluation Name/MRN: Ezra Gonzalez ([id number]) Evaluation Date: 06/19/2023 Date of : 1935 Admission Date: 06/16/2023 1:38 PM Age: 87 y.o. Room/Bed: [facility]707/[facility]70 A Discharge Recommendation: Home with Home health PT (return to [place]) Equipment Needed: No Assessment IMPRESSION: 87 y.o. pt admitted to [facility] for closed fracture RUE, s/p ORIF R humerus 06/17. They were Min A for bed mobility, Min A for transfers, and Min A for ambulation. Pt limited d/t balance. If from [place] where she can receive Min A for all ADLs and mobility. Would recommend return to [place] and [facility] PTat discharge. Diagnosis: closed fracture [...] correction Ambulation Ambulation 1 Assistive device(s) used: SENIOR TECHNOLOGIST Assist level: Min Assist Distance (ft): [...] to a [facility] Therapy Services Physical Therapist. Goals and/or treatment plan was established in collaboration with patient/family/other representatives. * Enedelia Sanches [facility] - 06/19/2023 1:50 PM EDT [facility] Anticoagulation Management Service (RIA) Inpatient Warfarin Consult HPI: Ezra Gonzalez is a 87 y.o. female admitted on 06/16/2023 for Closed displaced fracture of medial condyle of right humerus, initial encounter [S42.195Z] History reviewed. No pertinent past medical history. [...] patient can be classified as high risk ([id number] = 8). 2. Monitor for s/s of bleeding and drug interactions. Will adjust dose accordingly 3. RIA will manage while inpatient Dc Lombardi, PharmD Candidate Toshia Sanches, JpD, BCPS RIA is available daily [phone] via [employer]. If no response on Duel Chat then please page [phone]. * Kavon Diallo, OT - 06/19/2023 11:54 AM EDT Images from the original note were not included. OCCUPATIONAL THERAPY [facility] Initial Evaluation Name/MRN: Ezra Gonzalez ([id number]) Evaluation Date: 06/19/2023 Date of : 1935 Admission Date: 06/16/2023 1:38 PM Age: 87 y.o. Room/Bed: E7707/[facility]707 A Discharge Recommendation: Continue to assess pending [...] to a [facility] Therapy Services Occupational Therapist. Goals and/or treatment plan was established in collaboration with patient/family/other representatives. * Connie Perez APRN - DANCE THERAPIST - 06/19/2023 9:52 AM EDT Images from the original note were not included. Hospitalist Progress Note 06/19/2023 Subjective: Admit Date: 06/16/2023 PCP: No primary care provider on file. Room#: N8-025/N3-791 A BRIEF HOSPITAL COURSE: Ezra is a [...] Primary Emergency Contact: MariiadennisPatito Mobile Relation: Son Glaze Mixer needed? No Secondary Emergency Contact: BereketTy Mobile Relation: Son JANNETTE Hall CNP Division of Hospitalist Medicine [facility] * Huma Tavarez MD - 06/19/2023 [...] be monitored and followed by the diet equipment technician. NICA Watts * Louisa Cespedes OT - 06/18/2023 8:26 AM EDT Images from the original note were not included. OCCUPATIONAL THERAPY [facility] Name/MRN: Ezra Gonzalez ([id number]) Date: 06/18/2023 OT eval and treat order received. Patient chart reviewed. Per Ortho note, "Plan for ORIF od R distal humerus." Will hold evaluation till after surgery. Louisa Cespedes OT * Connie PerezJANNETTE - DANCE THERAPIST - 06/18/2023 8:00 AM EDT Images from the original note were not included. Hospitalist Progress Note 06/18/2023 Subjective: Admit Date: 06/16/2023 PCP: No primary care provider on file. Room#: E7-467/E7-148 A BRIEF HOSPITAL COURSE: Ezra is a [...] Emergency Contact: Patito Cuba Mobile Relation: Son Glaze Mixer needed? No Secondary Emergency Contact: BereketTy Mobile Relation: Son JANNETTE Hall CNP Division of Hospitalist Medicine Acute care [facility] * Maryanne Neumann, PT - 06/18/2023 7:27 AM EDT Images from the original note were not included. PHYSICAL THERAPY [facility] Name/MRN: Ezra Gonzalez ([id number]) Date: 06/18/2023 PT orders received and chart [...] PGY-5 [id number] * Connie Perez APRN - DANCE THERAPIST - 06/17/2023 7:46 AM EDT Images from the original note were not included. Hospitalist Progress Note 06/17/2023 Subjective: Admit Date: 06/16/2023 PCP: No primary care provider on file. Room#: BRIEF HOSPITAL COURSE: Ezra is a 87 [...] Emergency Contact: Patito Cuba Mobile Relation: Son Glaze Mixer needed? No Secondary Emergency Contact: Ty [place] Mobile Relation: Son Connie JANNETTE Perez CNP Division of Hospitalist Medicine [employer] * Shayne Fonseca MD - [...] nerve functions documented in this [facility]03-22-2024 Miscellaneous Notes* Care Coordination - Unknown Case Management - 06/20/2023 2:58 PM EDT Patient Choice Patient Name: EZRA GONZALEZ Date of : 1935 All Providers Sent Referral Name: [facility] Phone: [phone] Address: [address] [place] [address] * Home Care - Vivian Bills RN - 06/20/2023 2:40 PM EDT Start PACC Note Home Health Referral Educated patient on Home Care and services available. Patient offered choice of available HHC and agreeable to PT/OT services with [facility] - Home Care. Care Types: [...] is noted as yes - consider a CLINICAL LABORATORY DIRECTOR evaluation once the patient returns home. START PATIENT REGISTRATION INFORMATION Order Information Order Signing Physician: Connie Perez APRN * Service Ordered RN ?: No Service Ordered PT ?: Yes Service Ordered OT ?: Yes Service Ordered ST ?: No Service Ordered CLINICAL LABORATORY DIRECTOR?:No Service Ordered SENIOR TECHNOLOGIST?: No Following Physician: ALEXANDRA HAGEN Following Physician Overseeing Physician: ALEXANDRA HAGEN (Required for Residents only) Agreeable to Follow? No Date/Time of Call 06/20/23 2:40 PM, Spoke with: LVM FOR OFFICE-CONFIRMED WITH JOSEP THIS IS [place] AND CAN SEE RECENT NOTES IN [facility] Care Coordination Same Day SOC?: No Primary Care Physician: ALEXANDRA HAGEN Primary Care Physician Primary Care Physician Address: [address] [facility] [address] / [facility] [address] Visit Instructions: N/A Service Discharge Location Type: Assisted Living Service Facility Name: [facility] Floor Facility: N/A Service Room No: 105 Demographics Patient Last Name: Lisa Patient First Name: Ezra Language/Communication Barrier: NONE Service Address: [address] [place] [address] [address] Service City: [facility] ST: [place] Service ZIP: [address] Service (home) Other phone numbers: No relevant phone numbers on file. Emergency Contact: Extended Emergency Contact Information Primary Emergency Contact: Patito Cuba Mobile Relation: Son Glaze Mixer needed? No Secondary Emergency Contact: Ty [place] Mobile Relation: Son Admission Information Admit Date: 06/16/2023 Patient status at discharge: Inpatient Admitting Diagnosis: Closed displaced fracture of medial condyle of right humerus, initial encounter [S42.461A] Caregiver Information Caregiver First Name: NA Caregiver Last Name: NA Caregiver Relationship to Patient NA Caregiver Phone Number: NA Caregiver Notes: N/A [employer] List No END PATIENT REGISTRATION INFORMATION Pt [...] medications. Discharge Date: 06/20/23 Referral Source-PACC: (Hospital/Unit): [facility] / E7-707/E7-707 A End PACC Note * Care Coordination - SELINA Magaña - 06/20/2023 11:16 AM EDT TCC updated SW, pt is requesting COT transport back to pt home. Pt had opportunity for pt [place] to pick pt up and transport via wheelchair, pt declined. Contacted Cornel Gee, arranged for pt to be picked up [...] order lunch. Notified JAYME ELIZALDE and community resource officer. . * Care Coordination - Shikha Gray RN - 06/20/2023 11:01 AM EDT I SPOKE WITH DONOVAN, DENTIST AT [facility]. THEY CAN TAKE PT BACK TODAY. THEY CAN PROVIDE TRANSPORTATION BACK TO FACILITY AROUND 3 PM. AWARE PT WILL NEED PT AT FACILITY, THEY USE [facility], DID LET HC LIAISON [...] PM EDT Date: 06/16/2023 - 06/18/2023 Location: [facility] OR Name: Ezra Gonzalez, : 1935, Diagnosis Pre-op Diagnosis * Closed displaced fracture of medial condyle of right humerus, initial encounter [S42.722R] Post-op Diagnosis * Closed displaced fracture of medial condyle of right humerus, initial encounter [S42.461A] Procedures OPEN REDUCTION INTERNAL FIXATION RIGHT DISTAL HUMERUS 12359 - NM OPTX HUMERAL SHFT FX W/PLATE/SCREWS W/WOCERCLAGE Surgeons * Benitez Givens - Primary Procedure Summary Anesthesia: * No anesthesia type entered * ASA: III Estimated Blood Loss: Minimal Drains: * None in log * Staff: Boy'S Adviser: Vivian Herrera RN Scrub Person: Linda Alvarez [...] Limits Permission given to speak with patient player services representative/caregiver as indicated: No Confirmation of Payer with patient/family: Yes Payer Name: [facility] : No Confirmation of Primary [...] Transportation/Shopping: Assistance Provider Transportation/Shopping Assistance Provider Name: [employer] Transportation Mode: Needs Assistance with Transportation [...] rest and pain control documented in this [facility] [id number] Note* Care Coordination - Unknown Case Management - 06/20/2023 2:58 PM EDT Patient Choice Patient Name: EZRA GONZALEZ Date of : 1935 All Providers Sent Referral Name: [facility] Phone: [phone] Address: [address] [place] [address] [facility]17[facility]* Care Coordination - Unknown Case Management - 06/20/2023 2:58 PM EDT Patient Choice Patient Name: EZRA GONZALEZ Date of : 1935 All Providers Sent Referral Name: [facility] Phone: [phone] Address: [address] [place] [address] [facility] Hospital[facility]slnjb18-91-0900 Note* Home Care - Vivian Bills RN - 06/20/2023 2:40 PM EDT Start PACC Note Home Health Referral Educated patient on Home Care and services available. Patient offered choice of available HHC and agreeable to PT/OT services with [facility] - Home Care. Care Types: [...] is noted as yes - consider a CLINICAL LABORATORY DIRECTOR evaluation once the patient returns home. START PATIENT REGISTRATION INFORMATION Order Information Order Signing Physician: Connie Perez APRN * Service Ordered RN ?: No Service Ordered PT ?: Yes Service Ordered OT ?: Yes Service Ordered ST ?: No Service Ordered CLINICAL LABORATORY DIRECTOR?:No Service Ordered SENIOR TECHNOLOGIST?: No Following Physician: ALEXANDRA HAGEN Following Physician Overseeing Physician: ALEXANDRA HAGEN (Required for Residents only) Agreeable to Follow? No Date/Time of Call 06/20/23 2:40 PM, Spoke with: LVM FOR OFFICE-CONFIRMED WITH VALLIANT THIS IS HERPHYSICAN AND CAN SEE RECENT NOTES IN [facility] Care Coordination Same Day SOC?: No Primary Care Physician: ALEXANDRA HAGEN Primary Care Physician Primary Care Physician Address: [address] [place] [address] / [address] Visit Instructions: N/A Service Discharge Location Type: Assisted Living Service Facility Name: [facility] Floor Facility: N/A Service Room No: 105 Demographics Patient Last Name: Lisa Patient First Name: Ezra Language/Communication Barrier: NONE Service Address: [address] [place] [address] 105 Service City: [facility] ST: [place] Service ZIP: [address] Service (home) Other phone numbers: No relevant phone numbers on file. Emergency Contact: Extended Emergency Contact Information Primary Emergency Contact: Patito Cuba Mobile Relation: Son Glaze Mixer needed? No Secondary Emergency Contact: Ty Cuba Mobile Relation: Son Admission Information Admit Date: 06/16/2023 Patient status at discharge: Inpatient Admitting Diagnosis: Closed displaced fracture of medial condyle of right humerus, initial encounter [S46.294S] Caregiver Information Caregiver First Name: NA Caregiver Last Name: NA Caregiver Relationship to Patient NA Caregiver Phone Number: NA Caregiver Notes: N/A BVG [place]-SAK Project List No END PATIENT REGISTRATION INFORMATION Pt [...] medications. Discharge Date: 06/20/23 Referral Source-PACC: (Hospital/Unit): [facility] / E7-707/E7-707 A End PACC Note [facility]kgign45-69-7910 Note* Home Care - Vivian Bills RN - 06/20/2023 2:40 PM EDT Start PACC Note Home Health Referral Educated patient on Home Care and services available. Patient offered choice of available HHC and agreeable to PT/OT services with [facility]. Care [...] is noted as yes - consider a CLINICAL LABORATORY DIRECTOR evaluation once the patient returns home. START PATIENT REGISTRATION INFORMATION Order Information Order Signing Physician: Connie Perez APRN * Service Ordered RN ?: No Service Ordered PT ?: Yes Service Ordered OT ?: Yes Service Ordered ST ?: No Service Ordered CLINICAL LABORATORY DIRECTOR?:No Service Ordered SENIOR TECHNOLOGIST?: No Following Physician: ALEXANDRA HAGEN Following Physician Overseeing Physician: ALEXANDRA HAGEN (Required for Residents only) Agreeable to Follow? No Date/Time of Call 06/20/23 2:40 PM, Spoke with: BRYAN FOR OFFICE-[facility] THIS IS [place]YS[place] AND CAN SEE RECENT NOTES IN [facility] Care Coordination Same Day SOC?: No Primary Care Physician: ALEXANDRA HAGEN Primary Care Physician Primary Care Physician Address: [address] [place] [address] 105 / [facility] [id number] Visit Instructions: N/A Service Discharge Location Type: Assisted Living Service Facility Name: [facility] Floor Facility: N/A Service Room No: 105 Demographics Patient Last Name: Lisa Patient First Name: Ezra Language/Communication Barrier: NONE Service Address: [address] [place] [address] 105 Service City: [facility] ST: [place] Service ZIP: [address] Service (home) Other phone numbers: No relevant phone numbers on file. Emergency Contact: Extended Emergency Contact Information Primary Emergency Contact: Patito Cuba Mobile Relation: Son Glaze Mixer needed? No Secondary Emergency Contact: Ty Cuba Mobile Relation: Son Admission Information Admit Date: 06/16/2023 Patient status at discharge: Inpatient Admitting Diagnosis: Closed displaced fracture of medial condyle of right humerus, initial encounter [S46.304D] Caregiver Information Caregiver First Name: NA Caregiver Last Name: NA Caregiver Relationship to Patient NA Caregiver Phone Number: NA Caregiver Notes: N/A HITECH Hi-SAK Project List No END PATIENT REGISTRATION INFORMATION Pt [...] medications. Discharge Date: 06/20/23 Referral Source-PACC: (Hospital/Unit): [facility] / E7-707/E7-707 A End PACC Note [facility] HospitalWejbub75-02-0978 NoteHospitalist Discharge Summary Ezra Gonzalez : 1935 [...] provider Schedule (more content not included)...[facility]03-22-2024 Note* Care Coordination - SELINA Magaña [...] order lunch. Notified TONIO, RN and community resource officer. . [facility] HospitalTajvtl61-32-4248 Note* Care Coordination - SELINA Magaña - [...] order lunch. Notified TONIO, RN and community resource officer. . [facility] HospitalItvkgv88-26-2587 Note* Care Coordination - Shikha Gray RN - 06/20/2023 11:01 AM EDT I SPOKE WITH DONOVAN, DENTIST AT [facility]. THEY CAN TAKE PT BACK TODAY. THEY CAN PROVIDE TRANSPORTATION BACK TO FACILITY AROUND 3 PM. AWARE PT WILL NEED PT AT FACILITY, THEY USE [employer], DID LET HC LIAISON NOW. WENT [...] WITH CONNIE PEREZ REGARDING THIS. [facility] HospitalZddabv36-06-9161 Note* Care Coordination - Shikha Gray RN - 06/20/2023 11:01 AM EDT I SPOKE WITH DONOVAN, DENTIST AT [facility]. THEY CAN TAKE PT BACK TODAY. THEY CAN PROVIDE TRANSPORTATION BACK TO FACILITY AROUND 3 PM. AWARE PT WILL NEED PT AT FACILITY, THEY USE fake company [employer] [facility], DID LET HC LIAISON NOW. WENT TO [...] WITH CONNIE PEREZ REGARDING THIS. [facility] HospitalDvwlvh78-02-2966 Hospital course Narrative* Connie Perez, LICENSED EMBALMER SUPERVISOR - DANCE THERAPIST - 06/20/2023 10:18 AM EDT Images from [...] As needed [facility] Go to Appointment scheduled 06/26/23 at 10:[address] Givens. [address] [facility] Complexity of Follow up: [x] Moderate Complexity: follow up within 7-14 calendar days (67813) [] Severe Complexity: follow up within 7 calendar days (23213) Follow up Testing, Pending results or Referrals [...] time frame. Signed: Connie Perez APRN - [facility] Division of Hospitalist Medicine [facility] 06/20/2023, 1:11 PM documented in this [facility]03-22-2024 NoteDepartment of Orthopedic Surgery Progress Note [...] off at this time. Please page resident product safety consultant on Secure Chat with concerns or [...] in all distributions -Motor function intact to AIN/PIN/UlnarMer[facility] [id number] Note PHYSICAL THERAPY [facility] Initial Evaluation Name/MRN: Ezra Gonzalez ([id number]) Evaluation Date: 06/19/2023 Date of : 1935 Admission Date: 06/16/2023 1:38 PM Age: 87 y.o. Room/Bed: E7-707/E7707 A Discharge Recommendation: Home with Home health PT (return to [place]) Equipment Needed: No Assessment IMPRESSION: 87 y.o. pt admitted to [facility] for closed fracture RUE, s/p ORIF R humerus 06/17. They were Min A for bed mobility, Min A for transfers, and Min A for ambulation. Pt limited d/t balance. If from [place] where she can receive Min A for all ADLs and mobility. Would recommend return to [place] and [facility] PT at discharge. Diagnosis: closed [...] correction Ambulation Ambulation 1 Assistive device(s) used: SENIOR TECHNOLOGIST Assist level: Min Assist Distance (ft): [...] eval, 1 FA) Dillon (more content not included)...[facility]03-21-2024 Note* Care Coordination - Shikha Gray RN - 06/19/2023 2:05 PM EDT DAY #1 S/P ORIF OF RIGHT ARM. WAITING FOR PT/OT EVALS FOR DC PLANNING. [facility] HospitalAfrbss52-31-9336 Note* Care Coordination - Shikha Gray RN - 06/19/2023 2:05 PM EDT DAY #1 S/P ORIF OF RIGHT ARM. WAITING FOR PT/OT EVALS FOR DC PLANNING. [facility] HospitalRvdtbo48-42-0106 NoteOCCUPATIONAL THERAPY [facility] Initial Evaluation Name/MRN: Ezra Gonzalez ([id number]) Evaluation Date: 06/19/2023 Date of : 1935 Admission Date: 06/16/2023 1:38 PM Age: 87 y.o. Room/Bed: [facility]70/[facility] A Discharge Recommendation: Continue [...] End: 07/17/23 (more content not included)...[facility]03-21-2024 Note Hospitalist Progress Note 06/19/2023 Subjective: Admit Date: 06/16/2023 PCP: No primary care provider on file. Room#: E7-167/E7-561 A BRIEF HOSPITAL COURSE: Ezra is a [...] Anticipated Dischar (more content not included)...[facility] 06-19-2023 NoteDepartment of Orthopedic Surgery Progress [...] motor exam limited 2/2 block intactTrinity Health Ann Arbor Hospital 06-18-2023 NotePatient: Ezra Gonzalez Procedure Summary Date: 06/18/23 Room / Location: [facility] Operating Room Anesthesia Start: 1541 Anesthesia [...] discharged once all PACU criteria has been met.[facility] [id number] NotePatient: Ezra Gonzalez Procedure Summary Date: 06/18/23 Room / Location: [facility] Operating Room Anesthesia Start: 1541 Anesthesia [...] for questions and acknowledgement of understanding.[facility]03-20-2024 Note* Perioperative Nursing Note - Irina Khan RN - 06/18/2023 8:11 PM EDT Pt states no need to contact family. RN on floor states she will call pt's son,. [facility] HospitalGfjzje59-25-8563 Note* Perioperative Nursing Note - Irina Khan RN - 06/18/2023 8:11 PM EDT Pt states no need to contact family. RN on floor states she will call pt's son,. [facility] HospitalZgmqgm45-89-8552 NoteAirway Date/Time: 06/18/2023 3:56 PM Urgency: scheduled General Information and Staff Patient location during procedure: Procedural Resident/ASSOCIATE ACCOUNT EXECUTIVE: Sae Lora CRNA Performed: ASSOCIATE ACCOUNT EXECUTIVE Indications and Patient Condition Indications for airway [...] (cm): 21 Number of attempts at approach: [address] [place], [place] [address]03-20-2024 Note Peripheral IV Date/Time: 06/18/2023 4:00 PM Inserted by: JANNETTE Ivey CRNA Placement Needle size: 20 G Laterality: left Location: upper arm. Local anesthetic: none Site prep: alcohol Technique: ultrasound guided Attempts: [address] [place], [place] [address]-20-2024 NotePeripheral Block Time Out: 06/18/2023 3:28 PM Patient location during procedure: Procedural Start time: 06/18/2023 3:28 PM End time: 06/18/2023 3:32 PM Reason for block: at surgeon's request and post-op pain management Staffing Performed: WAQAS Resident/ASSOCIATE ACCOUNT EXECUTIVE: JANNETTE Ivey CRNA Preanesthetic Checklist Completed: patient [...] No paresthesias reported by patient during injectionMedications zfoZVLVXqhelr-rhjfayfqkbi-tkcjwdysvti (TAP) syringe - Injection 30 mL - 06/18/2023 3:28:00 [facility] [id number] NotePatient: Ezra Gonzalez Procedure Information Date/Time: 06/18/23 1530 Procedure: OPEN REDUCTION INTERNAL FIXATION RIGHT DISTAL HUMERUS (Right: Arm Upper) - requesting 330, if can't go at 330 will consider friday Location: [facility] OR [address] [place] [address] Operating Room Surgeons: Benitez Givens MD Relevant [...] by: Thong Francois DO on 06/17/2023 6:39 [facility] 06-18-2023 Hospital Discharge instructions* Discharge Instructions* Evette [...] Emergency Contact: Patito Cuba Mobile Relation: Son Glaze Mixer needed? No Secondary Emergency Contact: Ty Cuba [...] (78.9 kg) Mental Status: {MITCHEL Patient Mental Status:08250} IV Access: {MITCHEL IV Access:82778} Nursing Mobility/ADLs: Walking {MALLY ADL:::"Independent"} Transfer {MALLY ADL:::"Independent"} Bathing {MALLY ADL:::"Independent"} Dressing {MALLY ADL:::"Independent"} Toileting {MALLY ADL:::"Independent"} Feeding {MALLY ADL:::"Independent"} Machine Inker {MALLY ADL:::"Independent"} Med Delivery {yes/no:60973} Wound Care Documentation and Therapy: Wound/Incision 06/18/23 Incision Arm Anterior;Right;Upper (Active) Site Assessment Clean;Dry 06/19/232147 Treatments Sling 06/19/232147 Primary Dressing Xeroform 06/19/23 1024 Dressing Status Clean, dry & intact 06/19/232147 Number of days: 1 Elimination: Continence: Bowel: {yes/no:36291} Bladder: {yes/no:77151} Urinary Catheter: {MITCHEL Urinary Catheter:25041} Colostomy/Ileostomy/Ileal Conduit: {YES / NO:} Date of Last BM: No intake or output data in the 24 hours ending 06/20/23 1025 I/O last 3 completed shifts: In: 711 (9 mL/kg) [P.O.:280; I.V.:114 (1.4 mL/kg); IV Piggyback:317] Out: 600 (7.6 mL/kg) [Urine:350 (0.1 mL/kg/hr); Blood:250] Weight: 78.9 kg Safety Concerns: {MITCHEL Safety Concerns:34751} Impairments/Disabilities: {MITCHEL Impairments/Disabilities:94813} Nutrition Therapy: Current Nutrition Therapy: {MITCHEL Diet List:13063} Routes of Feeding: {routes of feedin} Liquids: {liquid consistency:29012} Daily Fluid Restriction: {daily fluid restriction:79842} Last Modified Barium Swallow with Video (Video Swallowing Test): {done not done:24047} Treatments at the Time of Hospital Discharge: Respiratory Treatments: Oxygen Therapy: {Therapy; copd oxygen:46695} Ventilator: {MITCHEL Ventilator:19820} Rehab Therapies: {GEN THERAPY DISCIPLINE SCAL:0678235} Weight Bearing Status/Restrictions: {POD WEIGHT BEARIN} Other Medical Equipment (for information only, NOT a DME order): {Assistive Devices DME:96635} Other Treatments: Patient's personal belongings (please select all that are sent with patient): {MITCHEL Patient Belongings:41711} RN SIGNATURE: {E-signature:90865} CASE MANAGEMENT/SOCIAL WORK SECTION Inpatient Status Date: 06/16/23 Readmission Risk Assessment Score: @READMISSIONRISKDETAILS@ Discharging to Facility/ Agency Discharging to Facility/ Agency Name: [facility] Address: [address] [place] [address] Name: [facility] [place] Address:[address] [place] [address] ~28.4 [address] Fax: Dialysis Facility (if applicable) Name: Address: Dialysis Schedule: Phone: Fax: Commercial Construction Project Manager/Nuclear Fuels Reclamation Engineer signature: ICIAN SECTION Prognosis: good Condition [...] PHYSICIAN SIGNATURE: documented in this [facility]03-20-2024 Note* Brief Op Note - Lexa [...] OPEN REDUCTION INTERNAL FIXATION RIGHT DISTAL HUMERUS 19913 - NM OPTX HUMERAL SHFT FX W/PLATE/SCREWS W/WOCERCLAGE Surgeons * Benitez Givens - Primary Procedure Summary Anesthesia: * No anesthesia type entered * ASA: III Estimated Blood Loss: Minimal Drains: * None in log * Staff: Boy'S Adviser: Vivian Herrera RN Scrub Person: Linda Alvarez [...] Givens in 2 weeks -Ortho to follow. [employer] Phone: [phone] 621-102703-20-2024 Note* Brief Op Note - Lexa Aparicio MD - 06/18/2023 3:42 PM EDT Date: 06/16/2023 - 06/18/2023 Location: [facility] OR Name: Ezra Gonzalez, : 1935, Diagnosis Pre-op Diagnosis * Closed displaced fracture of medial condyle of right humerus, initial encounter [S42.523T] Post-op Diagnosis * Closed displaced fracture of medial condyle of right humerus, initial encounter [S42.462R] Procedures OPEN REDUCTION INTERNAL FIXATION RIGHT DISTAL HUMERUS 91762 - NM OPTX HUMERAL SHFT FX W/PLATE/SCREWS W/WOCERCLAGE Surgeons * Benitez Givens - Primary Procedure Summary Anesthesia: * No anesthesia type entered * ASA: III Estimated Blood Loss: Minimal Drains: * None in log * Staff: Boy'S Adviser: Vivian Herrera RN Scrub Person: Linda Alvarez [...] Givens in 2 weeks -Ortho to follow. [employer] Phone: 1(358) 653-289103-20-2024 Note* Perioperative Nursing Note - Deisy Gonzalez RN - 06/18/2023 3:29 PM EDT Patients wallet and watch locked up with security. OR notified patient states she has latex allergy Patients purse and glasses taken to pacu [facility] HospitalKnunkz12-66-2415 Note* Perioperative Nursing Note - Deisy Gonzalez RN - 06/18/2023 3:29 PM EDT Patients wallet and watch locked up with security. OR notified patient states she has latex allergy Patients purse and glasses taken to pacu [facility] HospitalApemox34-55-6383 Note* Care Coordination - Shikha Gray RN - 06/18/2023 1:03 PM EDT Care Managment Initial Assessment Date: 06/18/2023 Patient Name: Ezra Gonzalez : 1935 Patient Information Source of Information: Patient Cognition/Language: WFL - Within Functional Limits Permission given to speak with patient player services representative/caregiver as indicated: No Confirmation of Payer with patient/family: Yes Payer Name: [facility] Gary: No Confirmation of Primary Care Physician: Confirmed [...] TO FOLLOW. Shikha Gray RN [facility] HospitalFsjzxe61-56-4354 Note* Care Coordination - Shikha Gray RN - 06/18/2023 1:03 PM EDT Care Managment Initial Assessment Date: 06/18/2023 Patient Name: Ezra Gonzalez : 1935 Patient Information Source of Information: Patient Cognition/Language: WFL - Within Functional Limits Permission given to speak with patient player services representative/caregiver as indicated: No Confirmation of Payer with patient/family: Yes Payer Name: [facility] Gary: No Confirmation of Primary Care Physician: Confirmed [...] TO FOLLOW. Shikha Gray RN [facility] HospitalXpvnta77-21-5334 NoteHospitalist Progress Note 06/18/2023 Subjective: Admit Date: 06/16/2023 PCP: No primary care provider on file. Room#: -827/-876 A BRIEF HOSPITAL COURSE: Ezra is a [...] Emergency Contact: Patito Cuba Mobile Relation: Son Glaze Mixer needed? No Se (more content not included)...[facility] [id number] Note Department of Orthopedic Surgery Progress Note [...] distributions -Motor + AIN/PIN/ulnar nerve functionsTrinity Health Ann Arbor Hospital03-19-2024 Plan of care note* Care Plan - Yvan Sepulveda RN - 06/17/2023 11:35 PM EDT The patient is Moderately Stable - Low risk of patient condition declining or worsening The patient's goals for the shift include rest and pain control The clinical goals for the shift include rest and pain control [facility] HospitalKzemev53-20-5032 Nurse Note* Yvan Sepulveda RN - 06/17/2023 9:22 PM EDT Patient home medication list updated, provider made aware. [facility] HospitalMbtzgz37-77-4789 Nurse Note* Yvan Sepulveda RN - 06/17/2023 9:22 PM EDT Patient home medication list updated, provider made aware. documented in this [facility]03-19-2024 Emergency department Note* Di Reyna RN - 06/17/2023 11:52 AM EDT Patient resting in bed at this time, equal unlabored respirations noted and no acute distress, callbell within reach Di Reyna RN 06/17/23 1153 [facility] HospitalPxgnfh12-18-7128 Emergency department Note* Di Reyna RN - [...] US IV line. Juanjo Pringle RN 06/16/23 0481 * NADIA Ruiz - 06/16/2023 12:38 PM [...] injury anywhere else. Patient was evaluated at [facility] emergency department prior to arrival and was noted to have a distal humerus fracture. Patient was transferred to [facility] ED for orthopedic consultation. Patient [...] Culture. Procedure Abnormality Status --------- ------ Complete Urinalysis[[id number]] Please view results for these tests on [...] right arm injury. Patient was seen at [facility] prior to arrival was noted to have a distal humerus fracture. Patient transferred to [facility] ED for orthopedic consultation. Nursing [...] screen, x-ray right elbow. CT head from [facility] ED -shows no signs of acute cranial abnormalities. CXR from [facility] ED prior to arrival -blunting of bilateral [...] 06/16/2023 12:38 PM EDT Emergency Department Encounter [facility] EMERGENCY DEPT Patient: Ezra Gonzalez [...] for clarification.) Sae Conde MD Acute Care [facility] Sae Conde MD 06/16/23 1626 documented in this [facility]03-19-2024 Emergency department Note* Alia Foster RN - 06/17/2023 10:00 AM EDT Pt O2 desaturating to mid 80s after receiving dilaudid IV. Pt placed on 2L NC and immediately back up to 95%. notified Alia Foster RN 06/17/23 1031 [facility] HospitalXzynhx38-77-3357 NoteHospitalist Progress Note 06/17/2023 Subjective: Admit Date: [...] Emergency Contact: Patito Cuba Mobile Relation: Son Glaze Mixer needed? No Secondary Emergency Contact: Ty Cuba Mobile Relation: Son Connie PerezJANNETTE - DANCE THERAPIST Division of Hospitalist Medicine [facility]03-19-2024 NoteDepartment of Orthopedic Surgery Progress [...] distributions -Motor + AIN/PIN/ulnar nerve functionsTrinity Health Ann [facility]bor Hospital03-18-2024 Emergency department Note* Juanjo Pringle RN [...] US IV line. Juanjo Pringle RN 06/16/23 2206 [facility] HospitalPwgqrm92-14-8416 NoteAttending History and Physical Admit Date: 06/16/2023 [...] does not feel safe going back to [place] at this time. Since patient staying ortho [...] am labs, (more content not included)...[facility]03-18-2024 History and physical note* Jayshree Cortez [...] Emergency Contact: Patito Cuba Mobile Relation: Son Glaze Mixer needed? No Secondary Emergency Contact: Ty Cuba Mobile Relation: Son Jayshree Cortez MD Division of Hospitalist Medicine [facility] [employer] Phone: 1(209) 108-764603-18-2024 History and physical note* Jayshree Cortez MD [...] does not feel safe going back to [place] at this time. Since patient staying ortho [...] Emergency Contact: Patito Cuba Mobile Relation: Son Glaze Mixer needed? No Secondary Emergency Contact: Ty Cuba Mobile Relation: Son Jayshree Cortez MD Division of Hospitalist Medicine [facility] documented in this [facility]03-18-2024 Physician Emergency department Note* NADIA Ruiz [...] injury anywhere else. Patient was evaluated at [facility] emergency department prior to arrival and was noted to have a distal humerus fracture. Patient was transferred to [facility] ED for orthopedic consultation. Patient [...] Culture. Procedure Abnormality Status --------- ------ Complete Urinalysis[[id number]] Please view results for these tests on [...] right arm injury. Patient was seen at [facility] prior to arrival was noted to have a distal humerus fracture. Patient transferred to [facility] ED for orthopedic consultation. Nursing [...] screen, x-ray right elbow. CT head from [facility] -shows no signs of acute cranial abnormalities. CXR from [facility] ED prior to arrival -blunting of bilateral [...] Ruiz (electronically signed) Emergency Medicine Provider NADIA Riuz 06/16/23 1635 [facility] HospitalCjhtrv61-24-1120 Physician Emergency department Note* Sae Conde MD - 06/16/2023 12:38 PM EDT Emergency Department Encounter [facility] EMERGENCY DEPT Patient: Ezra Gonzalez [...] for clarification.) Sae Conde MD Acute Care [facility] Sae Conde MD 06/16/23 1626 [employer] Phone: 1(186) 230-941109-30-2023 Discharge summary Author Lali Pimentel [facility] December 27, 2022 10:31pm Note Date/Time December 27, 2022 3:52pm [facility] Medical Records Department [address] [place] [address] Emergency Department Summary 12/27/22 MR#: [id number] Acct: [id number] Name: EZRA GONZALEZ Rep #:[id number] : 1935 87 From: Lali Pimentel MD PCP: Dr. Rosemary Doran MD Status:ADM MARIELOS Location: [address] History of Present Illness Chief Complaint: [...] repeat a phrase her speech is garbled. [facility] Medical History Atherosclerotic heart [...] % (Auto) 57.4 Lymph % (Auto) 27.9 [place] % (Auto) 10.8 H Eos % (Auto) [...] troponin is normal at 10. Neurology from [facility] felt that the patient should be admitted [...] Provider] - Disposition Disposition: Acute Care Hospital [facility] What to do if you have Problems For any increased pain, shortness of breath, bleeding, nausea or vomiting, chestpain, or any unexpected problems, contact your Primary Care Provider. Call [facility] ([phone]) or report to the closest Emergency Room. Call 911 if necessary. 12/27/22 0024 <Electronically signed by Lali Pimentel MD> Cosigner Signature (if applicable): CC: Dr. Rosemary Doran MD ~ Signed [facility] Work Phone: [phone] 288-257809-29-2023 History and physical note Author Lynn Horn [facility] December 27, 2022 6:54pm Note Date/Time December 27, 2022 5:12pm [facility] Medical Records Department [address] [place] [address] H&P Exam - Hospitalist 12/27/22 1709 MR#: [id number] Acct: [id number] Name: EZRA GONZALEZ Rep #:[id number] : 1935 87 From: Lynn Horn DO PCP: Dr. Rosemary Doran MD Status:ADM MARIELOS Location: [place] [address] HPI - General General Date of Admission: 12/27/22 Date of Service: 12/27/22 Chief Complaint: Speech abnormalities HPI Narrative EZRA GONZALEZ, is a 87 F who presented to the emergency department at [facility] on 12/27/2022 with speech abnormalities that started after 1 PM this afternoon. She resides at [facility]. She was last known well at [...] will add aspirin 81 mg as well [facility] Medical History Atherosclerotic heart disease of lower [...] % (Auto) 57.4, Lymph % (Auto) 27.9, [place] % (Auto) 10.8 H, Eos % (Auto) [...] on admission Charges/Coding Visit Charges Inpatient E&M: 92637 Init Hosp L2 12/27/22 1854 <Electronically signed by Lynn Horn DO> Cosigner Signature (if applicable): CC: Dr. Rosemary Doran MD; Dr. Lynn Horn DO~ Signed [facility] Work Phone: [phone] 752-472709-14-2023 Discharge summary Author María Crane [facility] December 12, 2022 1:40pm Note Date/Time December 12, 2022 1:40pm [facility] Physical Therapy [facility] [address] [place] [address] / REHABILITATION SERVICES DISCHARGE SUMMARY MR#: [id number] Acct: [id number] Name: EZRA GONZALEZ Rep #: [id number] : 1935 87 From: María Bo Referring Dr.: Dr. Anant Juarez MD Status: REG [facility] Insurance: [facility] [id number] SELF PAY INSURANCE Patient Information Patient Information: [...] found appropriate by the physician. Thank you! SRINIVASAN SommerT Balance/Gait/Functional tests Balance/Special Test Scores Functional Gait Assessment Score: 12 % Disability: 60.0000 Lower Extremity Functional Score: 39 <Electronically signed by María MATTSONT> 12/12/22 1340 CC: Dr. Rosemary Doran MD; Dr. Anant Juarez MD ~ ELR Signed [facility] Work Phone: [phone] Evaluation note* Diagnosis Onset Date Resolution Status Chronic diastolic (congestive) heart failure chronic Essential (primary) hypertension chronic Paroxysmal atrial fibrillation chronic History of coronary artery stent placement February 142006 resolved [facility] Work Phone: [phone] Evaluation note* Diagnosis Onset Date Resolution Status Chronic diastolic (congestive) heart failure chronic Essential (primary) hypertension chronic History of coronary artery stent placement February 142006 resolved Brain TIA resolved Carotid stenosis acute Difficulty with speech acute Dysarthria resolved Polyneuropathy acute [facility] Work Phone: [phone] 483-516311-17-2007 Evaluation note* Diagnosis Onset Date Resolution Status Chronic diastolic (congestive) heart failure chronic Essential (primary) hypertension chronic History of coronary artery stent placement February 142006 resolved Brain TIA resolved Carotid stenosis acute Difficulty with speech acute Dysarthria resolved Abnormality of gait and mobility acute Carotid stenosis acute Dementia acute Polyneuropathy acute Transient ischemic attack re solved [facility] Work Phone: [phone] Evaluation note* Diagnosis Onset Date Resolution Status Longstanding persistent atrial fibrillation acute Essential (primary) hypertension chronic History of coronary artery stent placement February 142006 resolved Dementia acute Epilepsy acute Polyneuropathy acute Transient ischemic attack re solved [facility] Work Phone: Consult note Author Kvng Carney [facility] June 16, 2023 10:15am Note Date/Time June 16, 2023 10: 14am [facility] Medical Records Department [address] [place] [address] Consultation - Orthopedics 06/16/23 1012 MR#: [id number] Acct: [id number] Name: EZRA GONZALEZ Rep #:[id number] : 1935 87 From: Kvng Carney MD PCP: Dr. Rosemary Doran MD Status:REG ER Location: ED HPI Consult Data Date of Consult: 06/16/23 HPI Narrative HPI Narrative: EZRA GONZALEZ, is a 87 F who presents with a right distal humerus fracture. Patient apparently is in assisted there a fall. According to the ED physician Dr. Mack who called me today this is a closed neurovascularly intact injury. [facility] Medical History (Updated 06/16/23 @ 10:13 by Kvng Carney MD) Atherosclerotic heart disease of lower [...] % (Auto) 67.8, Lymph % (Auto) 23.0, [place]% (Auto) 7.0, Eos % (Auto) 1.3, Baso [...] Dr. Rosemary Doran MD~ Signed [facility] Work Phone: Discharge summary Author Neri Mitchell [facility] November 14, 2022 11:57am Note Date/Time November 14, 2022 11 :10am [facility] Medical Records Department [address] [place] [address] Emergency Department Summary 11/14/22 MR#: [id number] Acct: [id number] Name: EZRA GONZALEZ Rep #:[id number] : 1935 87 From: Neri Mitchell MD [...] is on warfarin has history of TIAs. [facility] Medical History Atherosclerotic heart [...] deficits noted Neuro Narrative: Aphasic. Follows commands. Kendrick Coma Scale: document GCS findings Spontaneous Obeys [...] % (Auto) 64.0 Lymph % (Auto) 24.9 [place] % (Auto) 7.8 Eos % (Auto) 2.4 [...] No evidence for large vessel occlusion the [place]. N.B. : The above Results were Read Back by Ban Avila MD to Neri Mitchell MD, and understanding confirmed on 11/14/2022 11:41:26 (ET). Electronically Signed: Ban Avila MD at 11:41 EDT , ADDENDUM: 11/14/22 1148 IMPRESSION: No evidence for significant stenosis or occlusion in the carotid or vertebral arteries of the neck. No evidence for large vessel occlusion the [place]. N.B. : The above [...] Fibrillation Management Discussion w/another healthcare provider: Hospitalist, Spray Ii Painter (Stroke neurology Dr. Tamez) and Radiologist (At 1121 for NCCT, negative for bleed) Stroke Documentation Questions Stroke Team Activated: Yes Critical Care Time Critical Care Time: Yes Critical care time (excluding procedures): 30-74 minutes (37 min), Including time spent:, Discussing w/Patient &/or Family/Line Director, Discussing w/Consultants, Arranging Admission or Transfer and Performing Direct Patient Care at Bedside Discharge Plan Dx/Rx/DC Orders Clinical Impression: Brain TIA, Paroxysmal atrial fibrillation, Subtherapeutic international normalized ratio (INR) Disposition Disposition: Acute Care Hospital [facility] What to do if you have Problems For any increased pain, shortness of breath, bleeding, nausea or vomiting, chestpain, or any unexpected problems, contact your Primary Care Provider. Call [facility] ([phone]) or report to the closest Emergency Room. Call 911 if necessary. 11/14/22 1157 <Electronically signed by Neri Mitchell MD> Cosigner Signature (if applicable): CC: Dr. Rosemary Doran MD ~ Signed [facility] Work Phone: Discharge summary Author Sae Carballo [facility] December 28, 2022 11:09am Note Date/Time December 28, 2022 11:08am [facility] Medical Records Department [address] [place] [address] Instructions for Home/Discharge Instructions 12/28/22 1107 MR#: [id number] Acct: [id number] Name: EZRA GONZALEZ Rep #:[id number] : 1935 87 From: Sae fleming MD [...] Lynn Horn DO ~ Signed [facility] Work Phone: evaluation note* Diagnosis Onset Date Resolution Status Atherosclerotic heart diseas e of [place] coronary artery without angina pectoris chronic Chronic diastolic (congestive) heart failure chronic Essential (primary) hypertension chronic Hyperlipidemia chronic Paroxysmal atrial fibrillation chronic [facility] Work Phone: Evaluation note* Diagnosis Onset Date Resolution Status Abnormality of gait and mobility acute Carotid stenosis acute Dementia acute Polyneuropathy acute Transient ischemic attack re solved [facility] Work Phone: evaluation note* Diagnosis Onset Date Resolution Status Abnormality of gait and mobility acute Carotid stenosis acute Dementia acute Polyneuropathy acute Transient ischemic attack re solved Chronic diastolic (congestive) heart failure chronic Essential (primary) hypertension chronic Paroxysmal atrial fibrillation chronic History of coronary artery stent placement February 142006 resolved [facility] Work Phone: Evaluation note* Diagnosis Onset Date [...] acute Paroxysmal atrial fibrillation chronic [facility] Work Phone: evaluation note* Diagnosis Onset Date Resolution Status Abnormality of gait and mobility acute Carotid stenosis acute Dementia acute Polyneuropathy acute Transient ischemic attack re solved Chronic diastolic (congestive) heart failure chronic Essential (primary) hypertension chronic History of coronary artery stent placement February 142006 resolved Brain TIA resolved Carotid stenosis acute [facility] Work Phone: evaluation note* Diagnosis Onset Date Resolution Status Abnormality of gait and mobility acute Carotid stenosis acute Dementia acute Polyneuropathy acute Transient ischemic attack re solved Chronic diastolic (congestive) heart failure chronic Essential (primary) hypertension chronic History of coronary artery stent placement February 142006 resolved Brain TIA resolved Carotid stenosis acute Difficulty with speech acute Dysarthria acute [facility] Work Phone: Evaluation note* Diagnosis Onset Date Resolution Status Brain TIA resolved Carotid stenosis acute Difficulty with speech acute Dysarthria resolved Abnormality of gait and mobility acute Carotid stenosis acute Dementia acute Polyneuropathy acute Transient ischemic attack re solved [facility] Work Phone: Evaluation note* Diagnosis Onset Date Resolution Status Dementia acute Epilepsy acute Polyneuropathy acute Transient ischemic attack re solved [facility] Work Phone: Evaluation note* Diagnosis Onset Date Resolution Status Dementia acute Epilepsy acute Polyneuropathy acute Transient ischemic attack re solved Longstanding persistent atrial fibrillation acute Essential (primary) hypertension chronic History of coronary artery stent placement February 142006 resolved Dementia acute Epilepsy acute Polyneuropathy acute Transient ischemic attack re solved [facility] Work Phone: Evaluation note* Diagnosis Closed displaced fracture of medial condyle of right humerus, initial encounter- Primary Closed displaced fracture of medial condyle of right humerus, initial encounter [facility] Additional Instructions Your work-up today does not show signs of heart attack or heart damage. Your Coumadin level/INR is therapeutic at 2.7. Please follow-up with your family doctor for repeat evaluation or return to the ER if [facility] have any [facility] Work Phone: Hospital Discharge instructionsAmbulatory Orders* Physical Therapy Referral Location: None Selected [facility] Work Phone: Hospital Discharge instructions Additional Instructions Will need to follow-up Lamictal level since it is a send out. Recommend follow- up appointment with her neurologist Dr. [facility] Work Phone: Reason for referral (narrative)No reason for referral information availableWNorwalk Memorial Hospital Work Phone: Summary Purpose Family History No Family History Records Found Relationship Condition Age at Onset Recorded Date/T maggy father Coronary artery disease Unknown brother Coronary artery disease Unknown Advance Directives No Advanced Directives Records Found Advance Directive Response Recorded Date/ Time Advance Directives Yes November 10:13am Living Will No February 11 12:11am Power of Special Diet Cook No November 14th, 2022 12:11am Advance Directive Response Recorded Date/ Time Advance Directives Yes November 11:13am Living Will No February 11 022 1:11am Power of Special Diet Cook No February 11, 2022 1:11am Advance Directive Response Recorded Date/ Time Advance Directives Yes November 11:13am Living Will No September 08, 2022 3:33pm Power of Special Diet Cook No September 08 3:33pm Advance Directive Response Recorded Date/ Time Advance Directives Yes November 11:13am Living Will No November 14 11:07am Power of Special Diet Cook No November 14 023 11:07am Advance Directive Response Recorded Date/ Time Name of Medical Power of Special Diet Cook Ty nguyen November 18, 2022 7:55am Advance Directives Yes November 11:13am Living Will Yes November 18 7:55am Power of Special Diet Cook Yes November 18 023 7:55am Name of Medical Power of Special Diet Cook Wilfredo [place] November 14, 2022 1:26pm Advance Directive Response Recorded Date/ Time Name of Medical Power of Special Diet Cook Ty nguyen November 18, 2022 7:55am Name of Medical Power of Special Diet Cook Wilfredo [place] November 14, 2022 1:26pm Advance Directives Yes November 11:13am Living Will No December 27, 2022 7:16pm Power of Special Diet Cook No November 7:16pm Advance Directive Response Recorded Date/ Time Name of Medical Power of Special Diet Cook Ty nguyen November 18, 2022 6:55am Name of Medical Power of Special Diet Cook Wilfredo [place] November 14, 2022 12:26pm Advance Directives Yes November 10:13am Living Will No December 27, 2022 6:16pm Power of Special Diet Cook No November 6:16pm Advance Directive Response Recorded Date/ Time Advance Directives Yes November 10:13am Living Will No December 27, 2022 6:16pm Power of Special Diet Cook No November 6:16pm Advance Directive Response Recorded Date/ Time Name of Medical Power of Special Diet Cook SON--JACK June 16, 2023 8:32am Advance Directives Yes November 11:13am Living Will Yes June 16, 2023 8:32am Power of Special Diet Cook Yes June 15 8:32am Latest Code Status on File Code Status Date Activated Date Inactivated Comments Full Code 06/16/2023 4:39 PM 06/20/2023 7:46 PM Advance Directive Response Recorded Date/ Time Living Will Yes June 16, 2023 7:32am Power of Special Diet Cook Yes June 15 7:32am Advance Directives Yes November 10:13am Advance Directive Response Recorded Date/ Time Living Will Yes June 16, 2023 8:32am Do you have a Healthcare Power of Special Diet Cook? Yes June 16, 2023 8:32am Advance Directives Yes November 11:13am Advance Directive Response Recorded Date/ Time Living Will No December 27, 2022 7:16pm Do you have a Healthcare Power of Special Diet Cook? No December 27, 2022 7:16pm Living Will Yes June 16, 2023 8:32am Do you have a Healthcare Power of Special Diet Cook? Yes June 16, 2023 8:32am Advance Directives Yes November 11:13am Advance Directive Response Recorded Date/ Time Living Will No December 27, 2022 7:16pm Do you have a Healthcare Power of Special Diet Cook? No December 27, 2022 7:16pm Do you have a Healthcare Power of Special Diet Cook? Yes September 08, 2024 12:26pm Advance Directives Yes November 11:13am Advance Directive Response Recorded Date/ Time Living Will No December 27, 2022 7:16pm Do you have a Healthcare Power of Special Diet Cook? No December 27, 2022 7:16pm Do you have a Healthcare Power of Special Diet Cook? Yes September 10, 2024 5:17pm Do you have a Healthcare Power of Special Diet Cook? Yes September 08, 2024 12:26pm Advance Directives Yes November 11:13am Advance Directive Response Recorded Date/ Time Do you have a Healthcare Power of Special Diet Cook? Yes September 10, 2024 5:17pm Do you have a Healthcare Power of Special Diet Cook? 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, 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 EORDER FOR LABS FROM DR JUAREZ Consult LEFT ICA STENOSIS 6 M FU W LOOM TUNER per LOOM TUNER GAIT,POLYNEUROPATHY,LUMBAR COMPRESSION FX/RX HERE GAIT DISORDER Reason for Visit Abnormality of gait and mobility Carotid stenosis Dementia Polyneuropathy Transient ischemic attack Chronic diastolic (congestive) heart failure Essential (primary) hypertension Paroxysmal atrial fibrillation History of coronary artery stent placement Chief Complaint TIA SYMPTOMS, HX OF DM, AFIB confusion halfway (current) use 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 EORDER FOR LABS FROM DR JUAREZ Consult LEFT ICA STENOSIS 6 M FU W LOOM TUNER per LOOM TUNER GAIT,POLYNEUROPATHY,LUMBAR COMPRESSION FX/RX HERE GAIT DISORDER TIA Reason for Visit Abnormality of gait and mobility Carotid stenosis Dementia Polyneuropathy Transient ischemic attack Chronic diastolic (congestive) heart failure Essential (primary) hypertension Paroxysmal atrial fibrillation History of coronary artery stent placement Brain TIA Subtherapeutic international normalized ratio (INR) Paroxysmal atrial fibrillation Chief Complaint TIA SYMPTOMS, 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, 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 EORDER FOR LABS FROM DR JUAREZ Consult LEFT ICA STENOSIS 6 M FU W LOOM TUNER per LOOM TUNER GAIT,POLYNEUROPATHY,LUMBAR COMPRESSION FX/RX HERE GAIT DISORDER TIA TIA (cardiology) TIA (cardiology) tia Reason for Visit Abnormality of gait and mobility Carotid stenosis Dementia Polyneuropathy Transient ischemic attack Chronic diastolic (congestive) heart failure Essential (primary) hypertension Paroxysmal atrial fibrillation History of coronary artery stent placement Brain TIA Subtherapeutic international normalized ratio (INR) Paroxysmal atrial fibrillation Chief Complaint TIA SYMPTOMS, 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, 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 EORDER FOR LABS FROM DR JUAREZ Consult LEFT ICA STENOSIS 6 M FU W LOOM TUNER per LOOM TUNER GAIT,POLYNEUROPATHY,LUMBAR COMPRESSION FX/RX HERE GAIT DISORDER TIA TIA (cardiology) TIA (cardiology) tia ASSISTED LAB WORK CONSULT-CAROTID STENOSIS Reason for Visit Abnormality of gait and mobility Carotid stenosis Dementia Polyneuropathy Transient ischemic attack Chronic diastolic (congestive) heart failure Essential (primary) hypertension History of coronary artery stent placement Brain TIA Carotid stenosis Chief Complaint TIA SYMPTOMS, 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, 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 EORDER FOR LABS FROM DR JUAREZ Consult LEFT ICA STENOSIS 6 M FU W LOOM TUNER per LOOM TUNER GAIT,POLYNEUROPATHY,LUMBAR COMPRESSION FX/RX HERE GAIT DISORDER TIA TIA (cardiology) TIA (cardiology) tia ASSISTED LAB WORK CONSULT-CAROTID STENOSIS LABWORK ASSISTED LABWORK Reason for Visit Abnormality of gait and mobility Carotid stenosis Dementia Polyneuropathy Transient ischemic attack Chronic diastolic (congestive) heart failure Essential (primary) hypertension History of coronary artery stent placement Brain TIA Carotid stenosis Chief Complaint TIA SYMPTOMS, HX OF DM, AFIB confusion halfway (current) use 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 EORDER FOR LABS FROM DR JUAREZ Consult LEFT ICA STENOSIS 6 M FU W LOOM TUNER per LOOM TUNER GAIT,POLYNEUROPATHY,LUMBAR COMPRESSION FX/RX HERE GAIT DISORDER TIA TIA (cardiology) TIA (cardiology) tia ASSISTED LAB WORK CONSULT-CAROTID STENOSIS LABWORK ASSISTED LABWORK DYARTHRIA DYARTHRIA Reason for Visit Abnormality of gait and mobility Carotid stenosis Dementia Polyneuropathy Transient ischemic attack Chronic diastolic (congestive) heart failure Essential (primary) hypertension History of coronary artery stent placement Brain TIA Carotid stenosis Difficulty with speech Dysarthria Chief Complaint LEFT ICA STENOSIS 6 M FU W LOOM TUNER per LOOM TUNER GAIT,POLYNEUROPATHY,LUMBAR COMPRESSION FX/RX HERE GAIT DISORDER TIA TIA (cardiology) TIA (cardiology) tia ASSISTED LAB WORK CONSULT-CAROTID STENOSIS LABWORK ASSISTED LABWORK DYARTHRIA DYARTHRIA DYARTHRIA ASSISTED LABWORK 4 month f/u EORDER Reason for Visit Chronic diastolic (c ongestive) heart failure Essential (primary) hypertension History of coronary artery stent placement Brain TIA Carotid stenosis Difficulty with speech Dysarthria Polyneuropathy Chief Complaint 6 M FU W LOOM TUNER per LOOM TUNER GAIT,POLYNEUROPATHY,LUMBAR COMPRESSION FX/RX HERE GAIT DISORDER TIA TIA (cardiology) TIA (cardiology) tia ASSISTED LAB WORK CONSULT-CAROTID STENOSIS LABWORK ASSISTED LABWORK DYARTHRIA DYARTHRIA DYARTHRIA ASSISTED LABWORK 4 month f/u EORDER Reason for Visit Chronic diastolic (c ongestive) heart failure Essential (primary) hypertension History of coronary artery stent placement Brain TIA Carotid stenosis Difficulty with speech Dysarthria Abnormality of gait and mobility Carotid stenosis Dementia Polyneuropathy Transient ischemic attack Chief Complaint TIA TIA (cardiology) TIA (cardiology) tia ASSISTED LAB WORK CONSULT-CAROTID STENOSIS LABWORK ASSISTED LABWORK DYARTHRIA DYARTHRIA DYARTHRIA ASSISTED LABWORK 4 month f/u EORDER ASSISTED LABWORK Reason for Visit Brain TIA Carotid stenosis Difficulty with speech Dysarthria Abnormality of gait and mobility Carotid stenosis Dementia Polyneuropathy Transient ischemic attack Chief Complaint ASSISTED LABWORK 4 month f/u EORDER ASSISTED LABWORK ASSISTED LAB WORK ASSISTED LABWORK Reason for Visit Dementia Epilepsy Polyneuropathy Transient ischemic attack Chief Complaint 4 month f/u EORDER ASSISTED LABWORK ASSISTED LAB WORK ASSISTED LAB WORK ASSISTED LABWORK 7 m fu 4 month f/u Reason for Visit Dementia Epilepsy Polyneuropathy Transient ischemic attack Longstanding persistent atrial fibrillation Essential (primary) hypertension History of coronary artery stent placement Dementia Epilepsy Polyneuropathy Transient ischemic attack Chief Complaint ASSISTED LABWORK ASSISTED LAB WORK ASSISTED LAB WORK ASSISTED LABWORK LABWORK 7 m fu 4 month f/u LABWORK Reason for Visit Longstanding persist ent atrial fibrillation Essential (primary) hypertension History of coronary artery stent placement Dementia Epilepsy Polyneuropathy Transient ischemic attack Chief Complaint ASSISTED LABWORK ASSISTED LAB WORK ASSISTED LAB WORK ASSISTED LABWORK LABWORK 7 m fu 4 month f/u LABWORK FALL FALL Reason for Visit Longstanding persist ent atrial fibrillation Essential (primary) hypertension History of coronary artery stent placement Dementia Epilepsy Polyneuropathy Transient ischemic attack Chief Complaint ASSISTED LAB WOR K ASSISTED LAB WORK ASSISTED LABWORK LABWORK 7 m fu 4 month f/u LABWORK FALL FALL LABWORK Reason for Visit Longstanding persist ent atrial fibrillation Essential (primary) hypertension History of coronary artery stent placement Dementia Epilepsy Polyneuropathy Transient ischemic attack Chief Complaint Admit Date ASSISTED LAB WORK February 05, 2024 5:00am ASSISTED LAB WORK March 04, 2024 5:00am ASSISTED LAB WORK March 08, 2024 5:00am ASSISTED LAB WORK March 10 4:00am LABWORK March 17, 2024 5:00am LABWORK March 19, 2024 5:00am LABWORK March 25, 2024 5:00am ASSISTED LAB WORK March 26 5:00am ASSISTED LAB WORK March 29 5:00am ASSISTED LAB WORK April 05, 2024 5:00am ASSISTED LAB WORK April 06, 2024 5:00am LABWORK April 09, 2024 5 :00am ASSISTED LAB WORK April 14, 2024 4:00am ASSISTED LAB WORK April 28, 2024 5:00am LABWORK May 05, 2024 5 :00am 8 mo fu May 10, 2024 2:34pm ASSISTED LAB WORK May 19 5:00am Reason for Visit Admit Date Dementia May 10, 2024 2:34pm Epilepsy May 10, 2024 2:34pm Transient ischemic attack May 10, 2024 2:34pm Chief Complaint Admit Date ASSISTED LAB WORK March 04, 2024 5:00am ASSISTED LAB WORK March 08, 2024 5:00am ASSISTED LAB WORK March 10 4:00am LABWORK March 17, 2024 5:00am LABWORK March 19, 2024 5:00am LABWORK March 25, 2024 5:00am ASSISTED LAB WORK March 26 5:00am ASSISTED LAB WORK March 29 5:00am ASSISTED LAB WORK April 05, 2024 5:00am ASSISTED LAB WORK April 06, 2024 5:00am LABWORK April 09, 2024 5 :00am ASSISTED LAB WORK April 14, 2024 4:00am ASSISTED LAB WORK April 28, 2024 5:00am LABWORK May 05, 2024 5 :00am 8 mo fu May 10, 2024 2:34pm ASSISTED LAB WORK May 12 5:00am ASSISTED LAB WORK May 19 5:00am ASSISTED LAB WORK June 09, 2024 5 :00am Chief Complaint Admit Date ASSISTED LAB WORK March 10 4:00am LABWORK March 17, 2024 5:00am LABWORK March 19, 2024 5:00am LABWORK March 25, 2024 5:00am ASSISTED LAB WORK March 26 5:00am ASSISTED LAB WORK March 29 5:00am ASSISTED LAB WORK April 05, 2024 5:00am ASSISTED LAB WORK April 06, 2024 5:00am LABWORK April 09, 2024 5 :00am ASSISTED LAB WORK April 14, 2024 4:00am ASSISTED LAB WORK April 28, 2024 5:00am LABWORK May 05, 2024 5 :00am 8 mo fu May 10, 2024 2:34pm ASSISTED LAB WORK May 12 5:00am ASSISTED LAB WORK May 19 5:00am ASSISTED LAB WORK June 09, 2024 5 :00am ASSISTED LAB WORK June 16, 2024 5 :00am [...] Admit Date LABWORK March 25, 2024 5:00am ASSISTED LAB WORK March 26 5:00am ASSISTED LAB WORK March 29 5:00am ASSISTED LAB WORK April 05, 2024 5:00am ASSISTED LAB WORK April 06, 2024 5:00am LABWORK April 09, 2024 5 :00am ASSISTED LAB WORK April 14, 2024 4:00am ASSISTED LAB WORK April 28, 2024 5:00am LABWORK May 05, 2024 5 :00am 8 mo fu May 10, 2024 2:34pm ASSISTED LAB WORK May 12 5:00am ASSISTED LAB WORK May 19 5:00am ASSISTED LAB WORK June 09, 2024 5 :00am ASSISTED LAB WORK June 16, 2024 5 :00am 1 Y FU July 01, 2024 10:3 5am ASSISTED LAB WORK July 19, 2024 4 :00am Chief Complaint Admit Date ASSISTED LAB WORK May 12 5:00am ASSISTED LAB WORK May 19 5:00am ASSISTED LAB WORK June 09, 2024 5 :00am ASSISTED LAB WORK June 16, 2024 5 :00am 1 Y FU July 01, 2024 10:3 5am ASSISTED LAB WORK July 19, 2024 4 :00am ASSISTED LAB WORK August 18, 2024 5:0 0am SEIZURE September 08, 2024 12:2 0pm Reason for Visit Admit Date Longstanding persistent atrial fibrillat ion July 01, 2024 10:35am Essential (primary) hypertension July 012024 10:35am History of coronary artery stent placeme nt July 01, 2024 10:35am Chief Complaint Admit Date ASSISTED LAB WORK May 19 5:00am ASSISTED LAB WORK June 09, 2024 5 :00am ASSISTED LAB WORK June 16, 2024 5 :00am 1 Y FU July 01, 2024 10:3 5am ASSISTED LAB WORK July 19, 2024 4 :00am ASSISTED LAB WORK August 18, 2024 5:0 0am SEIZURE September 08, 2024 12:2 0pm Chief Complaint Admit Date ASSISTED LAB WORK May 19 5:00am ASSISTED LAB WORK June 09, 2024 5 :00am ASSISTED LAB WORK June 16, 2024 5 :00am 1 Y FU July 01, 2024 10:3 5am ASSISTED LAB WORK July 19, 2024 4 :00am ASSISTED LAB WORK August 18, 2024 5:0 0am SEIZURE September 08, 2024 12:2 0pm STROKE VS SEIZURE September 10, 2024 4:03 pm Chief Complaint Admit Date ASSISTED LAB WORK May 19 5:00am ASSISTED LAB WORK June 09, 2024 5 :00am ASSISTED LAB WORK June 16, 2024 5 :00am 1 Y FU July 01, 2024 10:3 5am ASSISTED LAB WORK July 19, 2024 4 :00am ASSISTED LAB WORK August 18, 2024 5:0 0am [...] 2024 4 :03pm Chief Complaint Admit Date ASSISTED LAB WORK May 19 5:00am ASSISTED LAB WORK June 09, 2024 5 :00am ASSISTED LAB WORK June 16, 2024 5 :00am 1 Y FU July 01, 2024 10:3 5am ASSISTED LAB WORK July 19, 2024 4 :00am ASSISTED LAB WORK August 18, 2024 5:0 0am SEIZURE September 08, 2024 12:2 0pm STROKE VS SEIZURE September 10, 2024 4:03 pm STROKE VS SEIZURE September 11, 2024 12:1 4pm 2 SEIZURES/ IN [facility] September 13, 2024 2:04 pm EORDERS September 13, 2024 3:03 pm Reason for Visit Admit Date Longstanding persistent atrial fibrillat ion July 01, 2024 10:35am Essential (primary) hypertension July 012024 10:35am History of coronary artery stent placeme nt July 01, 2024 10:35am Difficulty with speech September 10, 2024 4 :03pm Epilepsy September 13, 2024 2:04 pm Chief Complaint Admit Date ASSISTED LAB WORK August 18, 2024 5:0 0am SEIZURE September 08, 2024 12:2 0pm STROKE VS SEIZURE September 10, 2024 4:03 pm STROKE VS SEIZURE September 11, 2024 12:1 4pm 2 SEIZURES/ IN [facility] September 13, 2024 2:04 pm EORDERS September 13, 2024 3:03 pm LABWORK September 17, 2024 5:00 am ASSISTED LAB WORK September 22, 2024 4: 00am ASSISTED LAB WORK September 24, 2024 5: 00am ASSISTED LAB WORK October 04, 2024 5:0 0am ASSISTED LAB WORK October 11, 2024 4: 00am ASSISTED LAB WORK October 25, 2024 5: 00am [...] 2:04pm Transient ischemic attack September 13 2:04pm halfway current use of anticoagulant A [id number] 8:14am Lower extremity edema November 22, 2024 8:14am Atherosclerotic heart diseas e of [place] coronary artery without angina pectoris November 22, 2024 8:14am Essential (primary) hypertension November 22, 2024 8:14am Hyperlipidemia November 22, 2024 8: 14am Chief Complaint Admit Date SEIZURE September 08, 2024 12:2 0pm STROKE VS SEIZURE September 10, 2024 4:03 pm STROKE VS SEIZURE September 11, 2024 12:1 4pm 2 SEIZURES/ IN [facility] September 13, 2024 2:04 pm EORDERS September 13, 2024 3:03 pm LABWORK September 17, 2024 5:00 am ASSISTED LAB WORK September 22, 2024 4: 00am ASSISTED LAB WORK September 24, 2024 5: 00am ASSISTED LAB WORK October 04, 2024 5:0 0am ASSISTED LAB WORK October 11, 2024 4: 00am ASSISTED LAB WORK October 25, 2024 5: 00am [...] 2:04pm Transient ischemic attack September 13 2:04pm [employer] current use of anticoagulant A [id number] 8:14am Lower extremity edema November 22, 2024 8:14am Persistent atrial fibrillation November 222024 8:14am Atherosclerotic heart diseas e of [place] coronary artery without angina pectoris November 22, 2024 8:14am Essential (primary) hypertension November 22, 2024 8:14am Hyperlipidemia November 22, 2024 8: 14am Additional Source Comments INFORMATION SOURCE (unrecogn ized section and content) DATE CREATED AUTHOR 02/04/2018 [facility] DATE CREATED AUTHOR AUTHOR'S ORGANIZ ATION 11/12/2019 [facility] DATE CREATED AUTHOR AUTHOR'S ORGANIZ ATION 06/26/2023 [facility] DATE CREATED AUTHOR AUTHOR'S ORGANIZ ATION 02/02/2025 [facility] Source Comments (unrecognize d section and content) In the event this informatio n is protected by the Federal Confidentiality of Alcohol and Drug Abuse Patient Records regulations: The Federal rules restrict any use of the information to criminally investigate or prosecute any alcohol or drug abuse patient.[facility] the event this information is protected by the Federal Confidentiality of Alcohol and Drug Abuse Patient Records regulations: The Federal rules restrict any use of the information to criminally investigate or prosecute any alcohol or drug abuse patient.[facility] the event this information is protected by the Federal Confidentiality of Alcohol and Drug Abuse Patient Records regulations: The Federal rules restrict any use of the information to criminally investigate or prosecute any alcohol or drug abuse patient.[facility] the event this information is protected by the Federal Confidentiality of Alcohol and Drug Abuse Patient Records regulations: The Federal rules restrict any use of the information to criminally investigate or prosecute any alcohol or drug abuse patient.[facility] the event this information is protected by the Federal Confidentiality of Alcohol and Drug Abuse Patient Records regulations: The Federal rules restrict any use of the information to criminally investigate or prosecute any alcohol or drug abuse patient.[facility] Reason for Visit (unrecogniz ed section and content) Reason Onset Date Comments Refill Request Refill Request 11/11/2019 Reason Comments Arm Injury Pt arrives via [facility] from [facility] with complaints of right elbow fracture. Patient was sent here for ortho consult. No pain on arrival. Arrives with right arm splinted. Specialty Diagnoses / Procedures Referred By Ana bo Referred To Contact Diagnoses Closed displaced fracture of medial condyle of right humerus, initial encounter Procedures .. Jayshree Cortez MD [address] [place] [address] [facility] Emergency Dept [address] [place] [id number] Referral ID Status Reason Start Date Expiration Date Visits Re quested Visits Authorized [id number] 1 1 Telephone Encounter - Anne Marie [...] Visit date not found Patient Phone numbers: [phone] (home) Request is for script(s) to be [...] Swan MS Other Provider Active Start: J [facility] [address]24 Dr. Dmitriy Diop MD Other Provider [...] Doran MD Primary Care Provider Active Suze Prebiorquidea POWER LINEWORKER, POWER LINEWORKER-C Attending Provider, Referring Pr ovider Active Team [...] Anant Juarez MD Attending Provider Active Dr. Alexnadra Hagen MD Primary Care Provider Active Team Status: Active Member Role Status Dates Dr. Lali Pimentel MD Emergency Provider Active Dr. Rosemary Doran MD Primary Care Provider Active Kvng Carney MD Attending Provider Active Team Status: Inactive Member Role Status Dates Dr. Lali Pimentel MD Emergency Provider Active Dr. 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 Teir Garcia DO Emergency Provider Active Start: September [...] Crowell MD Other Provider Active Start: 2024 Camila Mitchell MD Other Provider Active [...] Role/Relationship Status Dates Dr. Kvng Ochoa , Primary [...] Crowell MD Other Provider Active Start: 2024 Camila Mitchell MD Other Provider Active [...] End: September 11, 2024 Julia Carpenter MD Nurse [...] 2024 End: September 11, 2024 Dr. Lorelei Purett MD Nurse Practitioner Active S tart: September [...] 2024 End: September 11, 2024 Dr. Ml Mroris MD Nurse Practitioner Active S tart: September [...] Dates Dr. Kvng Ochoa , DO Primary care physician Active Start: September 11, 2024 Dr. Teri Garcia , DO Emergency Departm ent Physician Active Start: September 11, 2024 Dr. Matthew Oro , DO Admitting physician Active Start: September 11 [...] Inactive Member Role/Relationship Status Dates Dr. Kvng Ohcoa DO Primary care physician Active Start: September [...] November 22, 2024 End: November 22, 2024 Yinkasandy Johnson PA Referring Provider Active St art: November 22, 2024 End: November 22, 2024 Team Status: Active Member Role/Relationship Status Dates Dr. Jamal Bruce MD Attending physician Active Start: November 22, 2024 NADIA Mcdonald Referring Provider [...] 0924 (Given - Provider: Juanjo Villalba, RN) donepezil [...] 350-400 5 Units Above 400 6 Units 1512 (MAR Hold - Provider: Automatic Transfer [...] Provider: Yvan Sepulveda RN - Reason: NPO)151 (MAY Hold - Provider: Automatic Transfer Provider [...] 0945 1116 (New Bag - Provider: Odessa Wayne RN)1435 (Stopped - Provider: Odessa Wayne RN) [...] administration of dextrose 50% or glucagon. 1511 ([facility] Hold - Provider: Automatic Transfer Provider - Reason: Patient not available)2025 ([facility] Unhold - Provider: Automatic Transfer Provider) dextrose [...] Glucostabilizer, dose as instructed per system. 1511 ([facility] Hold - Provider: Automatic Transfer Provider - Reason: Patient not available)2025 ([facility] Unhold - Provider: Automatic Transfer Provider) glucagon [...] 15 minutes x2 and notify provider. 1511 ([facility] Hold - Provider: Automatic Transfer Provider - Reason: Patient not available)2025 ([facility] Unhold - Provider: Automatic Transfer Provider) glucose [...] 15 minutes x2 and notify provider. 1511 ([facility] Hold - Provider: Automatic Transfer Provider - Reason: Patient not available)2025 ([facility] Unhold - Provider: Automatic Transfer Provider) HYDROmorphone [...] of each other unless specifically ordered. 1511 ([facility] Hold - Provider: Automatic Transfer Provider - Reason: Patient not available)2025 ([facility] Unhold - Provider: Automatic Transfer Provider) naloxone (Narcan) injection 0.4 mg 0.4 mg, IntraVENous, Every 5 min PRN, opioid reversal, respiratory depression, Starting on Fri06/16/23 at 1647, +++ For RR <10, pinpoint pupils, over sedation for opioid reversal - MUST notify product safety consultant provider immediately after first dose, may give IM or SQ if no IV access +++ 1511 ([facility] Hold - Provider: Automatic Transfer Provider - Reason: Patient not available)2025 ([facility] Unhold - Provider: Automatic Transfer Provider) ondansetron (Zofran) injection 4 mg(Linked Group 3) 4 mg, IntraVENous, Every 6 hours PRN, nausea, vomiting, Starting on Fri06/16/23 at 1639, 1st Line. Give IV if patient is unable to take orally. If inadequate response within 60 minutes, proceed to next-line agent or contact provider if no further options ordered. 1511 ([facility] Hold - Provider: Automatic Transfer Provider - Reason: Patient not available)2025 ([facility] Unhold - Provider: Automatic Transfer Provider) ondansetron [...] blister pack until just before administering. 1511 ([facility] Hold - Provider: Automatic Transfer Provider - Reason: Patient not available)2025 ([facility] Unhold - Provider: Automatic Transfer Provider) oxyCODONE (Roxicodone) immediate release tablet 2.5 mg(Linked Group 4) 2.5 mg, Oral, Every 4 hours PRN, moderate pain (4-6), Starting on Fri06/16/23 at 1639 1512 (MAR Hold - Provider: Automatic Transfer Provider - Reason: Patient not available)2025 ([facility] Unhold - Provider: Automatic Transfer Provider) 0924 [...] Transfer Provider - Reason: Patient not available)2025 ([facility] Unhold - Provider: Automatic Transfer Provider) sodium [...] BE BASED ON THE PRIMARY CLINICAL RECORDS. [facility]. provides no warranty or guarantee of the accuracy or completeness of information in this document.
[2025-02-15 07:23] LABS: INR Fingerstick 2.4
== END ==
DX: Z79.01 Long term (current) use 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 (principal)
CPT/HCPCS: 36416; 85610

== ENCOUNTER → 2025-03-01 05:00 | Outpatient (REF) | payer MEDICARE, SELFPAY ==
--- OUTSIDE RECORDS SUMMARY | 2025-03-01 04:09 | XMS RPT_ITS | CCD ---
Author Organization [facility] Care Team Providers Care Junior Financial Analyst Name Role Phone LISHNEVSKI, ALEXIA Unavailable [...] LISHNEVSKI, ALEXIA Unavailable Unavailable [place] Hebert Unavailable [phone] Patito Gonzalez Unavailable [phone] Nirmal Kemp Unavailable Mohan Álvarez Unavailable Bishop, Rickey Clive Unavailable [phone] Rosemary Doran Primary Care Provider Lishnevski, Alexia Primary Care Provider Zenaida Henderson Unavailable Dr. Rosemary Doran Primary Care Provider Dr. Rosemary Doran Referring Provider Roof NIGHT BAKER, NIGHT BAKER-Adeel Arnett Attending Provider Dr. Rosemary Doran Primary [...] Referring Provider NADIA Hoff Attending Provider Dr. aLli Pimentel Emergency Provider Dr. Lynn Horn Admit [...] Physician Amos LENNON, Dr. Baker Nurse Practitioner [phone] Gillian LENNON, Dr. Rowland Nurse Practitioner Pauline LENNON, Julia Nurse Practitioner Sosa PEACE, Keyshawn Nurse Practitioner Jadon LENNON, Dr. Izaguirre Nurse Practitioner Delvis LENNON, Meagan Nurse Practitioner MAMADOU HICKS MD Nurse Practitioner Lester LENNON, Cara Nurse Practitioner Flynn LENNON, Dr. Moseley Nurse Practitioner [phone] Mukesh LENNON, Robinson Nurse Practitioner Olman LENNON, Aura Nurse Practitioner [phone] Mervat LENNON, Eric Nurse Practitioner Unavailable Stephen LENNON, Camila Nurse Practitioner Unavailab kamari Jacobson DO, Dr. Manzanares Nurse Practitioner Joi LENNON, Dr. Phelps Nurse Practitioner Alexandra LENNON, Dr. Bull Nurse Practitioner Johana LENNON, Dr. Grossman Nurse Practitioner Shaheed LENNON, Dr. Kinney Nurse Practitioner [phone] Marilu LENNON, Dr. [place] Nurse Practitioner Ely LENNON, Dr. Parkinson Nurse Practitioner Desirae LENNON, Dr. Liz Bagley Nurse Practitioner Chris LENNON, Dr. Mckenna Nurse Practitioner Karen LENNON, Dr. Chong Nurse Practitioner [phone], [address] Sanchez Nurse Practitioner Kory LENNON, Dr. White Nurse Practitioner Unavailabl rajendra Leonard MD, [facility] Practitioner Unavailabl rajendra Oro DO, Dr. [...] Johnson Referring Unavailable Yinka Johnson Attending Unavailable Kvng Ochoa Primary Care Unavailable Anant Juarez Referring Unavailable Anant Juarez Attending Unavailable Ochoa, Kvng Primary Care Unavailable Ademarion, Amir Consulting Unavailable Matthew rOo Admitting Unavailable Matthew Oro Attending Unavailable Janett [...] Michel Consulting Unavailable Iggy Graves Consulting Unavailable Lzi Merrill Consulting UnavailBala Iqbal Consulting Unavailable Castillo [...] Alexandra S Primary Care Unavailable Douglas OLS Cesar Attending Unavailable Douglas OLS, Cesar Referring [...] Jolliff, Alexandra S Primary Care Unavailable Douglas, [place] Attending Unavailable Ochoa, Kvng Primary Care Unavailable [...] Ochoa, Kvng Primary Care Unavailable Douglas OLS, [place] Attending Unavailable Douglas OLS, Cesar Attending Unavailable [...] Allergy 5 Other: See Comments [facility] Repository (20 sources) codeine; Translations: [CODEINE] Drug Allergy 5 Unknown [facility] Repository (20 sources) Latex; Translations: [LATEX] Propensity to adverse reactions (disorder) 5 Rash, Itching [facility] Repository (20 sources) meperidine; Translations: [MEPERIDINE] Drug Allergy 5 GI Upset [facility] Repository (20 sources) rosuvastatin; Translations: [ROSUVASTATIN] Drug Allergy 5 Other: See Comments [facility] Repository (20 sources) Amiodarone Drug Allergy 2 "Hair falling out in gobs", hair loss [facility] (1 source) Amiodarone Drug Allergy 5 [facility] Repository Medications Current Medications Medication Drug Class(es) [...] release tablet 2.5 mg polyethylene glycol 3350 06569 mg powder for oral solution (4 sources) [...] 1:03am 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 She has become lost while driving [...] 36 (n (more content not included)... Normal [facility] normalized rat io (INR) measurement by fingerstickOrdered By: Cesar Cole on 12-30-2024 INR Coag (BldC) [Relative time] 2.0 [facility] Comment on above: Critical Value > 4.0 Whole blood prothrombin time Ordered By: Cesar Cole on 12-30-2024 PT Coag (Bld) [Time] 22.4 s High 11.7-14.9 [facility] Anion gap in Serum or Plasma Ordered By: Kvng Ochoa on 12-24-2024 Anion gap [Moles/Vol] 14 mmol/L 5-15 [facility] BUN/creatinine ratioOrdered By: Kvng Ochoa on 12-24-2024 Urea nitrogen/Creatinine [Mass ratio] 23.8 mg/mg High 10-20 [facility] Bilirubin Test strip Ql (U)O rdered By: Kvng Ochoa on 12-24-2024 Bilirubin Ql (U) Negative Negative [facility] Carbon dioxide, total [Moles /volume] in Central venous bloodOrdered By: Kvng Ochoa on 12-24-2024 CO2 [Moles/Vol] 21.5 mmol/L 21.0-32.0 [facility] Chloride assayOrdered By: Costa Ochoa on 12-24-2024 Chloride [Moles/Vol] 104 mmol/L 98-108 [facility] Erythrocyte distribution wid th ratioOrdered By: Kvng Ochoa on 12-24-2024 Erythrocyte distribution width (RBC) [Ratio] 12.8 % 11.6-14.6 [facility] Erythrocyte distribution wid th standard deviationOrdered By: Kvng Ochoa on 12-24-2024 Erythrocyte distribution width (RBC) [Ratio] 44.9 fl High 35.1-43.9 [facility] Glomerular filtration rate ( GFR) estimation/1.73 sq m using serum, plasma, or whole bOrdered By: Kvng Ochoa on 12-24-2024 GFR/1.73 sq M.predicted among non-blacks MDRD (S/P/Bld) [Vol rate/Area] 83 mL/min/{1.73_m2} >60 [facility] Comment on above: mL/min/1.73m2 CKD-EP I Creatinine Equation (2020) Hematocrit Auto (Bld) [Volum e fraction]Ordered By: Kvng Ochoa on 12-24-2024 Hematocrit (Bld) [Volume fraction] 40.3 % 37-47 [facility] Hemoglobin measurementOrdere d By: Kvng Ochoa on 12-24-2024 Hemoglobin (Bld) [Mass/Vol] 13.5 g/dL 12.0-15.0 [facility] Ketones Test strip Ql (U)Ord ered By: Kvng Ochoa on 12-24-2024 Ketones Ql (U) Negative Negative [facility] MCV (mean corpuscular volume ) determinationOrdered By: Kvng Ochoa on 12-24-2024 MCV (RBC) [Entitic vol] 96.0 fL 81-99 [facility] Mean corpuscular hemoglobin (MCH) determinationOrdered By: Kvng Ochoa on 12-24-2024 MCH (RBC) [Entitic mass] 32.1 pg High 27.0-32.0 [facility] Mean corpuscular hemoglobin concentration (MCHC) determinationOrdered By: Kvng Ochoa on 12-24-2024 MCHC (RBC) [Mass/Vol] 33.5 g/dL 32-36 [facility] Mean platelet volume determi nationOrdered By: Kvng Ochoa on 12-24-2024 Platelet mean volume (Bld) [Entitic vol] 11.0 fL 6.2-12.0 [facility] Microscopic analysis of urin e for red blood cells (RBC)Ordered By: Kvng Ochoa on 12-24-2024 Microscopic analysis of urine for red blood cells (RBC) 0 SEEN /hpf 0-5 [facility] Mucus LM Ql (Urine sed)Order ed By: Kvng Ochoa on 12-24-2024 Mucus Ql (Urine sed) 0 SEEN /hpf [facility] Nitrite Test strip Ql (U)Ord ered By: Kvng Ochoa on 12-24-2024 Nitrite Ql (U) Positive High Negative [facility] Platelet countOrdered By: Costa Ochoa on 12-24-2024 Platelets (Bld) [#/Vol] 298 10*3/uL 150-450 [facility] Potassium measurement (mass/ volume)Ordered By: Kvng Ochoa on 12-24-2024 Potassium (Unsp spec) [Mass/Vol] 4.8 mmol/L 3.3-5.1 [facility] Comment on above: Hemolysis present, R esults could be affected. Protein Test strip Ql (U)Ord ered By: Kvng Ochoa on 12-24-2024 Protein Ql (U) Negative Negative [facility] RBC Auto (Bld) [#/Vol]Ordere d By: Kvng Ochoa on 12-24-2024 RBC (Bld) [#/Vol] 4.20 10*6/uL 4.2-5.4 [facility] Serum creatinine measurement (mass/volume)Ordered By: Kvng Ochoa on 12-24-2024 Creatinine [Mass/Vol] 0.69 mg/dL Low 0.70-1.20 [facility] Serum glucose measurement (m ass/volume)Ordered By: Kvng Ochoa on 12-24-2024 Glucose [Mass/Vol] 127 mg/dL High 70-99 [facility] Serum or plasma calcium viktoria urement (mass/volume)Ordered By: Kvng Ochoa on 12-24-2024 Calcium [Mass/Vol] 9.0 mg/dL 7.6-11.0 [facility] Serum or plasma lamotrigine measurement (mass/volume)Ordered By: Kvng Ochoa on 12-24-2024 lamoTRIgine [Mass/Vol] < 1.0 ug/mL Low 2.0-20.0 [facility] Comment on above: Detection Limit = 1. 0Performed at: [facility] [address] [id number] Director: Brandon Wells MD, Phone: [phone] Serum or plasma urea nitroge n measurement (mass/volume)Ordered By: Kvng Ochoa on 12-24-2024 Urea nitrogen [Mass/Vol] 17 mg/dL 4-19 [facility] Sodium levelOrdered By: Dru Ochoa on 12-24-2024 Sodium [Moles/Vol] 140 mmol/L 133-145 [facility] Squamous epithelial cells de tection in urine sediment by light microscopyOrdered By: Kvng Ochoa on 12-24-2024 Epithelial cells.squamous LM Ql (Urine sed) 0 SEEN /hpf 5-10 [facility] Urine clarityOrdered By: Alexander Ochoa on 12-24-2024 Clarity (U) Clear Clear [facility] Urine color determinationOrd ered By: Kvng Ochoa on 12-24-2024 Color (U) Yellow Yellow [facility] Urine cultureOrdered By: Alexander Ochoa on 12-24-2024 Bacteria identified Cx Nom (U) Klebsiella pneumoniae sp pneum Abnormal [facility] Urine glucose detectionOrder ed By: Kvng Ochoa on 12-24-2024 Glucose Ql (U) Normal mg/dl Normal [facility] Urine leukocyte esterase det ection by dipstickOrdered By: Kvng Ochoa on 12-24-2024 Leukocyte esterase Test strip Ql (U) 100 /ul High Negative [facility] Urine pHOrdered By: Kvng holley on 12-24-2024 pH (U) 6.5 [pH] 5.0 - 8.0 [facility] Urine sediment bacteria coun t by microscopy (number/high power field)Ordered By: Kvng Ochoa on 12-24-2024 Bacteria LM.HPF (Urine sed) [#/Area] 2 /[HPF] None Seen [facility] Urine specific gravity measu rementOrdered By: Kvng Ochoa on 12-24-2024 Specific gravity (U) [Rel density] 1.010 1.002-1.030 [facility] Urine urobilinogen measureme ntOrdered By: Kvng Ochoa on 12-24-2024 Urobilinogen Ql (U) Normal mg/dl Normal [facility] White blood cell (WBC) count Ordered By: Kvng Ochoa on 12-24-2024 WBC (Bld) [#/Vol] 10.6 10*3/uL 4.4-11.0 [facility] White blood cell countOrdere d By: Kvng Ochoa on 12-24-2024 White blood cell count 0-5 SEEN /hpf 0-5 [facility] normalized rat io (INR) measurement by fingerstickOrdered By: Kvng Ochoa on 11-30-2024 INR Coag (BldC) [Relative time] 2.8 [facility] Comment on above: Critical Value > 4.0 Whole blood prothrombin time Ordered By: Kvng Ochoa on 11-30-2024 PT Coag (Bld) [Time] 29.1 s High 11.7-14.9 [facility] Venous duplex ultrasound rep ortOrdered By: Jamal [place] on 11-23-2024 US Vein [facility] [address] [place] [address] Venous Duplex US, Unilateral 11/22/24 0921 MR#: [id number] Acct: [id number] Name: EZRA GONZALEZ Rep #:[id number] : 1935 89 From: Jamal [place] MD [...] and/or faxed to T/P Trunk is compressible. [facility]. PTV is compressible. LT PerV [...] ~ Date Dictated: 11/22/24920 Date Transcribed: 11/23/242215 Barrel Handler: Signed [facility] Other Phone: Cardiology Visit Reporton Cardiology Visit Report [facility] [address] [place] [address] OFFICE VISIT Date of Service: 11/22/24 MR#: [id number] Acct: [id number] Name: EZRA GONZALEZ Rep #: [id number] : 1935 Provider: NADIA Mcdonald Age/Sex: 89/F [place] [facility] Status: Signed HPI HPI History of Present [...] back into atrial fibrillation. She resides at [facility]. 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 Normal [facility] Venous Duplex US, Unilateral on 11-22-2024 Venous Duplex US, Unilateral [facility] [address] [place] [address] Venous Duplex US, Unilateral 11/22/24 0921 MR#: [id number] Acct: [id number] Name: EZRA GONZALEZ Rep #: [id number] : 1935 89 From: Jamal [place] MD [...] and/or faxed to T/P Trunk is compressible. [facility]. PTV is compressible. LT PerV [...] Mcdonald Date Dictated: 11/22/24920 Date Transcribed: 11/23/242215 Barrel Handler: Signed Normal [facility] normalized rat io (INR) measurement by fingerstickOrdered By: Kvng Ochoa on 11-08-2024 INR Coag (BldC) [Relative time] 2.8 [facility] Comment on above: Critical Value > 4.0 Whole blood prothrombin time Ordered By: Kvng Ochoa on 11-08-2024 PT Coag (Bld) [Time] 29.6 s High 11.7-14.9 [facility] International normalized rat io (INR) calculationOrdered By: Kvng Ochoa on 10-25-2024 INR Coag (Bld) [Relative time] 3.3 {INR} [facility] normalized rat io (INR) measurement by fingerstickOrdered By: Kvng Ochoa on 10-25-2024 INR Coag (BldC) [Relative time] 4.0 Critically high [facility] Comment on above: Critical Value > 4.0 Prothrombin timeOrdered By: Kvng Ochoa on 10-25-2024 PT Coag (PPP) [Time] 34.2 s High 11.7-14.9 [facility] Whole blood prothrombin time Ordered By: Kvng Ochoa on 10-25-2024 PT Coag (Bld) [Time] 39.6 s High 11.7-14.9 [facility] International normalized rat io (INR) measurement by fingerstickOrdered By: Kvng Ochoa on 10-11-2024 INR Coag (BldC) [Relative time] 2.8 [facility] Comment on above: Critical Value > 4.0 Whole blood prothrombin time Ordered By: Kvng Ochoa on 10-11-2024 PT Coag (Bld) [Time] 29.0 s High 11.7-14.9 [facility] International normalized rat io (INR) measurement by fingerstickOrdered By: Cesar Cole on 10-04-2024 INR Coag (BldC) [Relative time] 3.4 [facility] Comment on above: Critical Value > 4.0 Whole blood prothrombin time Ordered By: Cesar Cole on 10-04-2024 PT Coag (Bld) [Time] 34.8 s High 11.7-14.9 [facility] International normalized rat io (INR) measurement by fingerstickOrdered By: Cesar Cole on 09-24-2024 INR Coag (BldC) [Relative time] 2.0 [facility] Comment on above: Critical Value > 4.0 Whole blood prothrombin time Ordered By: Cesar Cole on 09-24-2024 PT Coag (Bld) [Time] 21.6 s High 11.7-14.9 [facility] Anion gap in Serum or Plasma Ordered By: Kvng Ochoa on 09-22-2024 Anion gap [Moles/Vol] 12 mmol/L 5-15 [facility] BUN/creatinine ratioOrdered By: Kvng Ochoa on 09-22-2024 Urea nitrogen/Creatinine [Mass ratio] 29.4 mg/mg High 10-20 [facility] Calculated very low density lipoprotein (VLDL) cholesterol measurementOrdered By: Kvng Ohcoa on 09-22-2024 Calculated very low density lipoprotein (VLDL) cholesterol measurement 24 mg/dL 5-40 [facility] Carbon dioxide, total [Moles /volume] in Central venous bloodOrdered By: Kvng Ochoa on 09-22-2024 CO2 [Moles/Vol] 23.8 mmol/L 21.0-32.0 [facility] Chloride assayOrdered By: Costa Ochoa on 09-22-2024 Chloride [Moles/Vol] 105 mmol/L 98-108 [facility] Glomerular filtration rate ( GFR) estimation/1.73 sq m using serum, plasma, or whole bOrdered By: Kvng Ochoa on 09-22-2024 GFR/1.73 sq M.predicted among non-blacks MDRD (S/P/Bld) [Vol rate/Area] 52 mL/min/{1.73_m2} Low >60 [facility] Comment on above: mL/min/1.73m2 CKD-EP I Creatinine Equation (2020) LDL calc ser/plasOrdered By: Kvng Ochoa on 09-22-2024 Cholesterol in LDL [Mass/Vol] 109 mg/dL [facility] Comment on above: Dguncmfbbk=110-191 m g/dL & Higher Krqe=202 mg/dL or greater Potassium measurement (mass/ volume)Ordered By: Kvng Ochoa on 09-22-2024 Potassium (Unsp spec) [Mass/Vol] 4.8 mmol/L 3.3-5.1 [facility] Screening total cholesterol/ high density lipoprotein (HDL) cholesterol ratioOrdered By: Kvng Ochoa on 09-22-2024 Cholesterol.total/Cholest felipe in HDL [Mass ratio] 3.13 {ratio} [facility] Serum creatinine measurement (mass/volume)Ordered By: Kvng Ochoa on 09-22-2024 Creatinine [Mass/Vol] 1.03 mg/dL 0.70-1.20 [facility] Serum glucose measurement (m ass/volume)Ordered By: Kvng Ochoa on 09-22-2024 Glucose [Mass/Vol] 123 mg/dL High 70-99 [facility] Serum or plasma calcium viktoria urement (mass/volume)Ordered By: Kvng Ochoa on 09-22-2024 Calcium [Mass/Vol] 9.0 mg/dL 7.6-11.0 [facility] Serum or plasma cholesterol in HDL measurement (mass/volume)Ordered By: Kvng Ochoa on 09-22-2024 Cholesterol in HDL [Mass/Vol] 62 mg/dL >40 [facility] Comment on above: National Cholesterol Education Program (NCEP) guidelines:<40 mg/dL: Low HDL-cholesterol (major risk factor for CHD)>= 60 mg/dL: High HDL-cholesterol (negative risk factor for CHD)HDL-cholesterol is affected by a number of factors, e.g. smoking, exercise, hormones, sex and age. Serum or plasma cholesterol measurement (mass/volume)Ordered By: Kvng Ochoa on 09-22-2024 Cholesterol [Mass/Vol] 195 mg/dL <201 [facility] Comment on above: Cholesterol level, D esirable <200 mg/dLBorderline high cholesterol 200-239 mg/dLHigh cholesterol >=240 mg/dLRecommendations of the NCEP Adult Treatment Panel for the following risk-cutoff thresholds for the [place] population. Serum or plasma urea nitroge n measurement (mass/volume)Ordered By: Kvng Ochoa on 09-22-2024 Urea nitrogen [Mass/Vol] 30 mg/dL High 4-19 [facility] Sodium levelOrdered By: Dru Ochoa on 09-22-2024 Sodium [Moles/Vol] 140 mmol/L 133-145 [facility] Triglycerides measurementOrd ered By: Kvng Ochoa on 09-22-2024 Triglyceride [Mass/Vol] 118 mg/dL <199 [facility] Comment on above: The drugs N-Acetylcy steine and Metamizole may falsely depress this assay. Normal range: <150 mg/dLBorderline High: 150-199 mg/dLHigh: 200-499 mg/dLVery High: >500 mg/dL International normalized rat io (INR) measurement by fingerstickOrdered By: Cesar Cole on 09-17-2024 INR Coag (BldC) [Relative time] 1.5 [facility] Comment on above: Critical Value > 4.0 Whole blood prothrombin time Ordered By: Cesar Cole on 09-17-2024 PT Coag (Bld) [Time] 17.2 s High 11.7-14.9 [facility] KEPPRA (LEVETIRACETAM)on KEPPRA <2.0 Abnormal 10.0-40.0 [facility] Comment on above: Performed By: #### L 503.5510, L3310.0000, L3300.4400 ####[facility] [id number] [place], [address] Lamotrigine (Lamictal) Level on 09-16-2024 LAMOTRIGINE 1.7 ug/mL Low 2.0-20.0 [facility] Comment on above: Result Comment: Dete ction Limit = 1.0 Performed at: - [facility] [address], [place], [place] [id number] Supervisor Microwave: Brandon Wells MD, Phone: [phone] Performed By: #### L 503.5510, L3310.0000, L3300.4400 ####[facility] [address] [place], [address] Ammoniaon 09-13-2024 Ammonia (P) [Moles/Vol] 28.9 umol/L Normal 11-51 [facility] Comment on above: Performed By: #### L 503.5510, L3310.0000, L3085.4405 ####[facility] [address] [place], [place], [id number] LevetiracetamOrdered By: Royce Juarez on 09-13-2024 levETIRAcetam [Mass/Vol] ug/mL Low 10.0-40.0 [facility] Neurology Visit Reporton Neurology Visit Report [facility] [address], [address] [place], [place] [id number] OFFICE VISIT Date of Service: 09/13/24 MR#: [id number] Acct: [id number] Name: EZRA GONZALEZ Rep #: [id number] : 1935 Provider: Dr. Anant baez MD Age/Sex: 89/F [place] [facility] [place] 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 Normal [facility] Serum or plasma lamotrigine measurement (mass/volume)Ordered By: Anant Juarez on 09-13-2024 lamoTRIgine [Mass/Vol] 1.7 ug/mL Low 2.0-20.0 [facility] Comment on above: Detection Limit = 1. 0Performed at: BN - [facility] [address] [place], [place] [id number] Director: Brandon Wells MD, Phone: [phone] Venous blood ammonia measure mentOrdered By: Anant Juarez on 09-13-2024 Ammonia (P) [Moles/Vol] 28.9 umol/L [facility] Lamotrigine (Lamictal) Level on 09-12-2024 LAMOTRIGINE 1.2 ug/mL Low 2.0-20.0 [facility] Comment on above: Result Comment: Dete ction Limit = 1.0 Performed at: [address] [id number] Supervisor Microwave: Brandon Wells MD, Phone: [phone] Performed By: #### L 100.0100, L500.2500, L300.3900, L3300.4400 ####[facility] [address] [facility] [place], [place], [address] Urine Cultureon 09-12-2024 [facility] Klebsiella pneumonia e sp pneum [place] Count 80,000-100,000 Klebsiella pneumoniae sp pneum: REACTION [...] TMP SMX Islt MELINDA <=20 S Normal [facility] Comment on above: Performed By: #### M 100.2200 ####[facility] [address] [place], [place], [address] Anion gap in Serum or Plasma Ordered By: Matthew Oro on 09-11-2024 Anion gap [Moles/Vol] 12 mmol/L 08-12 [facility] BUN/creatinine ratioOrdered By: Matthew Oro on 09-11-2024 Urea nitrogen/Creatinine [Mass ratio] 30.4 mg/mg High 01-17 [facility] Basic Metabolic Profile (BMP )on 09-11-2024 BUN/CRE 30.4 RATIO [facility] Comment on above: Order Comment: Comme nts: NPO at [place] prior to lipid panel Performed By: #### L 500.4100, L100.0500, L500.2500 #### [facility] [address] [place], [address] Calcium [Mass/Vol] 8.8 mg/dL Normal 7.6-11.0 [facility] Comment on above: Order Comment: Comme nts: NPO at [place] prior to lipid panel Performed By: #### L 500.4100, L100.0500, L500.2500 #### [facility] [address] [place], [address] Chloride [Moles/Vol] 105 mmol/L Normal 98-108 [facility] Comment on above: Order Comment: Comme nts: NPO at [place] prior to lipid panel Performed By: #### L 500.4100, L100.0500, L500.2500 #### [facility] [address] [place], [address] CO2 [Moles/Vol] 21.6 mmol/L Normal 21.0-32.0 [facility] Comment on above: Order Comment: Comme nts: NPO at [place] prior to lipid panel Performed By: #### L 500.4100, L100.0500, L500.2500 #### [facility] [address] [place], [address] Creatinine [Mass/Vol] 0.91 mg/dL Normal 0.70-1.20 [facility] Comment on above: Order Comment: Comme nts: NPO at [place] prior to lipid panel Performed By: #### L 500.4100, L100.0500, L500.2500 #### [facility] [address] [place], [address] ECRCL 41.34 ml/min Low 50-250 [facility] Comment on above: Order Comment: Comme nts: NPO at [place] prior to lipid panel Performed By: #### L 500.4100, L100.0500, L500.2500 #### [facility] [address] [place], [address] GAP 12 Normal 5-15 [facility] Comment on above: Order Comment: Comme nts: NPO at [place] prior to lipid panel Performed By: #### L 500.4100, L100.0500, L500.2500 #### [facility] [address] [place], [address] GFR/1.73 sq M.predicted among non-blacks MDRD (S/P/Bld) [Vol rate/Area] 61 mL/min/{1.73_m2} Normal >60 [facility] Comment on above: Order Comment: Comme nts: NPO at [place] prior to lipid panel Result Comment: mL/m in/1.73m2 CKD-EPI Creatinine Equation (2020) Performed By: #### L 500.4100, L100.0500, L500.2500 #### [facility] [address] [place], [address] Glucose [Mass/Vol] 118 mg/dL High 70-99 [facility] Comment on above: Order Comment: Comme nts: NPO at [place] prior to lipid panel Performed By: #### L 500.4100, L100.0500, L500.2500 #### [facility] [address] [place], [address] Potassium [Moles/Vol] 4.4 mmol/L Normal 3.3-5.1 [facility] Comment on above: Order Comment: Comme nts: NPO at [place] prior to lipid panel Performed By: #### L 500.4100, L100.0500, L500.2500 #### [facility] [address] [place], [address] Sodium [Moles/Vol] 139 mmol/L Normal 133-145 [facility] Comment on above: Order Comment: Comme nts: NPO at [place] prior to lipid panel Performed By: #### L 500.4100, L100.0500, L500.2500 #### [facility] [address] [place], [address] Urea nitrogen [Mass/Vol] 28 mg/dL High 4-19 [facility] Comment on above: Order Comment: Comme nts: NPO at [place] prior to lipid panel Performed By: #### L 500.4100, L100.0500, L500.2500 #### [facility] [address] [place], [address] CBC-Complete Blood Cnt No Di ffon 09-11-2024 Erythrocyte distribution width (RBC) [Ratio] 12.8 % Normal 11.6-14.6 [facility] Comment on above: Performed By: #### L 500.4100, L100.0500, L500.2500 #### [facility] [address] [place], [address] Hematocrit (Bld) [Volume fraction] 39.7 % Normal 37-47 [facility] Comment on above: Performed By: #### L 500.4100, L100.0500, L500.2500 #### [facility] [address] [place], [address] Hemoglobin (Bld) [Mass/Vol] 13.1 g/dL Normal 12.0-15.0 [facility] Comment on above: Performed By: #### L 500.4100, L100.0500, L500.2500 #### [facility] [address] [place], [address] MCH (RBC) [Entitic mass] 30.3 pg Normal 27.0-32.0 [facility] Comment on above: Performed By: #### L 500.4100, L100.0500, L500.2500 #### [facility] [address] [place], [address] MCHC (RBC) [Mass/Vol] 33.0 g/dL Normal 32-36 [facility] Comment on above: Performed By: #### L 500.4100, L100.0500, L500.2500 #### [facility] [address] [place], [address] MCV (RBC) [Entitic vol] 91.7 fL Normal 81-99 [facility] Comment on above: Performed By: #### L 500.4100, L100.0500, L500.2500 #### [facility] [address] [place], [address] Platelet mean volume (Bld) [Entitic vol] 10.7 fL Normal 6.2-12.0 [facility] Comment on above: Performed By: #### L 500.4100, L100.0500, L500.2500 #### [facility] [address] [place], [address] Platelets (Bld) [#/Vol] 271 10*3/uL Normal 150-450 [facility] Comment on above: Performed By: #### L 500.4100, L100.0500, L500.2500 #### [facility] [address] [place], [address] RBC (Bld) [#/Vol] 4.33 10*6/uL Normal 4.2-5.4 [facility] Comment on above: Performed By: #### L 500.4100, L100.0500, L500.2500 #### [facility] [address] [place], [address] RDW SD 42.8 fl Normal 35.1-43.9 [facility] Comment on above: Performed By: #### L 500.4100, L100.0500, L500.2500 #### [facility] [address] [place], [address] WBC (Bld) [#/Vol] 12.2 10*3/uL High 4.4-11.0 [facility] Comment on above: Performed By: #### L 500.4100, L100.0500, L500.2500 #### [facility] [address] [place], [address] Calculated very low density lipoprotein (VLDL) cholesterol measurementOrdered By: Matthew Oro on 09-11-2024 Calculated very low density lipoprotein (VLDL) cholesterol measurement 16 mg/dL 5-40 [facility] Carbon dioxide, total [Moles /volume] in Central venous bloodOrdered By: Matthew Oro on 09-11-2024 CO2 [Moles/Vol] 21.6 mmol/L 21.0-32.0 [facility] Chloride assayOrdered By: Urban Oro on 09-11-2024 Chloride [Moles/Vol] 105 mmol/L 98-108 [facility] Discharge Instructionon 08-29 Discharge Instruction [facility] Medical Records Department [address] [place] [address] Instructions for Home/Discharge Instructions 09/11/24 1214 MR#: [id number] Acct: [id number] Name: EZRA GONZALEZ Rep #: [id number] : 1935 89 From: Matthew Oro DO [...] Thurman DO; Ashu Leonard MD Signed Normal [facility] Electroencephalogramon 09-11 Electroencephalogram [facility] Pulmonary Services/Neurology [address] [place] [address] MR#: [id number] Acct: [id number] Name: EZRA GONZALEZ Rep #: [id number] : 1935 89 From: Castillo Jones MD Referring Dr: Status: ADM MARIELOS Location: [place] [id number] Date: 09/10/24 Sex: F C EEG Results Procedure Details EEG Procedure Details: Inpatient routine EEG report performed at [facility] Study start time: 1326 on 09/11/24 [...] DO Date Dictated: 09/11/241501 Date Transcribed: 09/11/241501 Barrel Handler: RI Signed Normal [facility] Erythrocyte distribution wid th ratioOrdered By: Matthew Oro on 09-11-2024 Erythrocyte distribution width (RBC) [Ratio] 12.8 % 11.6-14.6 [facility] Erythrocyte distribution wid th standard deviationOrdered By: Matthew Oro on 09-11-2024 Erythrocyte distribution width (RBC) [Ratio] 42.8 fl 35.1-43.9 [facility] Glomerular filtration rate ( GFR) estimation/1.73 sq m using serum, plasma, or whole bOrdered By: Matthew Oro on 09-11-2024 GFR/1.73 sq M.predicted among non-blacks MDRD (S/P/Bld) [Vol rate/Area] 61 mL/min/{1.73_m2} >60 [facility] Comment on above: mL/min/1.73m2 CKD-EP I Creatinine Equation (2020) Hematocrit Auto (Bld) [Volum e fraction]Ordered By: Matthew Oro on 09-11-2024 Hematocrit (Bld) [Volume fraction] 39.7 % 37-47 [facility] Hemoglobin measurementOrdere d By: Matthew Oro on 09-11-2024 Hemoglobin (Bld) [Mass/Vol] 13.1 g/dL 12.0-15.0 [facility] LDL calc ser/plasOrdered By: Matthew Oro on 09-11-2024 Cholesterol in LDL [Mass/Vol] 100 mg/dL [facility] Comment on above: Fvidbebaed=696-703 m g/dL & Higher Draq=829 mg/dL or greater Lipid Profileon 09-11-2024 CHOL:HDL 3.03 Normal [facility] Comment on above: Order Comment: Comme nts: NPO at [place] prior to lipid panel Performed By: #### L 500.4100, L100.0500, L500.2500 #### [facility] [address] [place], [place], [address] Cholesterol [Mass/Vol] 172 mg/dL Normal <=200 [facility] Comment on above: Order Comment: Comme nts: NPO at [place] prior to lipid panel Result Comment: Chol esterol level, Desirable <200 mg/dL Borderline high cholesterol 200-239 mg/dL High cholesterol >=240 mg/dL Recommendations of the NCEP Adult Treatment Panel for the following risk-cutoff thresholds for the [place] population. Performed By: #### L 500.4100, L100.0500, L500.2500 #### [facility] [address] [place], [address] Cholesterol in HDL [Mass/Vol] 57 mg/dL Normal [facility] Comment on above: Order Comment: Comme nts: [...] By: #### L 500.4100, L100.0500, L500.2500 #### [facility] [address] [place], [address] Cholesterol in LDL [Mass/Vol] 100 mg/dL Normal [facility] Comment on above: Order Comment: Comme nts: NPO at [place] prior to lipid panel Result Comment: Bord mhrjlt=976-724 mg/dL Higher Xmie=985 mg/dL or greater Performed By: #### L 500.4100, L100.0500, L500.2500 #### [facility] [address] [place], [address] Cholesterol in VLDL [Mass/Vol] 16 mg/dL Normal 5-40 [facility] Comment on above: Order Comment: Comme nts: NPO at [place] prior to lipid panel Performed By: #### L 500.4100, L100.0500, L500.2500 #### [facility] [address] [place], [address] Triglyceride [Mass/Vol] 78 mg/dL Normal [facility] Comment on above: Order Comment: Comme nts: NPO at [place] prior to lipid panel Result Comment: The drugs N-Acetylcysteine and Metamizole may falsely depress this assay. Normal range: <150 mg/dL Borderline High: 150-199 mg/dL High: 200-499 mg/dL Very High: >500 mg/dL Performed By: #### L 500.4100, L100.0500, L500.2500 #### [facility] [address] [place], [address] MCV (mean corpuscular volume ) determinationOrdered By: Matthew Oro on 09-11-2024 MCV (RBC) [Entitic vol] 91.7 fL 81-[address] [facility] Mean corpuscular hemoglobin (MCH) determinationOrdered By: Matthew Oro on 09-11-2024 MCH (RBC) [Entitic mass] 30.3 pg 27.0-32.0 [facility] Mean corpuscular hemoglobin concentration (MCHC) determinationOrdered By: Matthew Oro on 09-11-2024 MCHC (RBC) [Mass/Vol] 33.0 g/dL 32-36 [facility] Mean platelet volume determi nationOrdered By: Matthew Oro on 09-11-2024 Platelet mean volume (Bld) [Entitic vol] 10.7 fL 6.2-12.0 [facility] Platelet countOrdered By: Urban Oro on 09-11-2024 Platelets (Bld) [#/Vol] 271 10*3/uL 150-450 [facility] Potassium measurement (mass/ volume)Ordered By: Matthew Oro on 09-11-2024 Potassium (Unsp spec) [Mass/Vol] 4.4 mmol/L 3.3-5.1 [facility] RBC Auto (Bld) [#/Vol]Ordere d By: Matthew Oro on 09-11-2024 RBC (Bld) [#/Vol] 4.33 10*6/uL 4.2-5.4 [facility] Screening total cholesterol/ high density lipoprotein (HDL) cholesterol ratioOrdered By: Matthew Oro on 09-11-2024 Cholesterol.total/Cholest felipe in HDL [Mass ratio] 3.03 {ratio} [facility] Serum creatinine measurement (mass/volume)Ordered By: Matthew Oro on 09-11-2024 Creatinine [Mass/Vol] 0.91 mg/dL 0.70-1.20 [facility] Serum glucose measurement (m ass/volume)Ordered By: Matthew Oro on 09-11-2024 Glucose [Mass/Vol] 118 mg/dL High 70-99 [facility] Serum or plasma calcium viktoria urement (mass/volume)Ordered By: Matthew Oro on 09-11-2024 Calcium [Mass/Vol] 8.8 mg/dL 7.6-11.0 [facility] Serum or plasma cholesterol in HDL measurement (mass/volume)Ordered By: Matthew Oro on 09-11-2024 Cholesterol in HDL [Mass/Vol] 57 mg/dL >40 [facility] Comment on above: National Cholesterol Education Program (NCEP) guidelines:<40 mg/dL: Low HDL-cholesterol (major risk factor for CHD)>= 60 mg/dL: High HDL-cholesterol (negative risk factor for CHD)HDL-cholesterol is affected by a number of factors, e.g. smoking, exercise, hormones, sex and age. Serum or plasma cholesterol measurement (mass/volume)Ordered By: Matthew Oro on 09-11-2024 Cholesterol [Mass/Vol] 172 mg/dL <201 [facility] Comment on above: Cholesterol level, D esirable <200 mg/dLBorderline high cholesterol 200-239 mg/dLHigh cholesterol >=240 mg/dLRecommendations of the NCEP Adult Treatment Panel for the following risk-cutoff thresholds for the [place] population. Serum or plasma urea nitroge n measurement (mass/volume)Ordered By: Matthew Oro on 09-11-2024 Urea nitrogen [Mass/Vol] 28 mg/dL High 4-19 [facility] Sodium levelOrdered By: All Oro on 09-11-2024 Sodium [Moles/Vol] 139 mmol/L 133-145 [facility] Triglycerides measurementOrd ered By: Matthew Oro on 09-11-2024 Triglyceride [Mass/Vol] 78 mg/dL <199 [facility] Comment on above: The drugs N-Acetylcy steine and Metamizole may falsely depress this assay. Normal range: <150 mg/dLBorderline High: 150-199 mg/dLHigh: 200-499 mg/dLVery High: >500 mg/dL White blood cell (WBC) count Ordered By: Matthew Oro on 09-11-2024 WBC (Bld) [#/Vol] 12.2 10*3/uL High 4.4-11.0 [facility] Absolute lymphocyte countOrd ered By: Teri Garcia on 09-10-2024 Lymphocytes Auto (Unsp spec) [#/Vol] 1.91 10*3/uL 0.83-4.51 [facility] Absolute neutrophil countOrd ered By: Teri Garcia on 09-10-2024 Neutrophils (Bld) [#/Vol] 8.3 10*3/uL High 2.0-7.7 [facility] Activated partial thrombopla stin time (aPTT) in platelet poor plasma by coagulation aOrdered By: Teri Garcia on 09-10-2024 aPTT Coag (PPP) [Time] 31.8 s 24.1-36.2 [facility] Anion gap in Serum or Plasma Ordered By: Teri Garcia on 09-10-2024 Anion gap [Moles/Vol] 12 mmol/L 5-15 [facility] Automated lymphocyte count a s percentage of total leukocytesOrdered By: Teri Garcia on 09-10-2024 Lymphocytes/100 WBC Auto (Unsp spec) 16.6 % Low 19-41 [facility] BUN/creatinine ratioOrdered By: Teri Garcia on 09-10-2024 Urea nitrogen/Creatinine [Mass ratio] 34.8 mg/mg High 10-20 [facility] Basic Metabolic Profile (BMP )on 09-10-2024 BUN/CRE 34.8 RATIO High - [facility] Comment on above: Performed By: #### L 500.2500, L100.0100, L501.4021, L300.3900, L300.4310 ####[facility] [address] [place], [address] Calcium [Mass/Vol] 8.7 mg/dL Normal 7.6-11.0 [facility] Comment on above: Performed By: #### L 500.2500, L100.0100, L501.4021, L300.3900, L300.4310 ####[facility] [address] [place], [address] Chloride [Moles/Vol] 103 mmol/L Normal 98-108 [facility] Comment on above: Performed By: #### L 500.2500, L100.0100, L501.4021, L300.3900, L300.4310 ####[facility] [address] [place], [address] CO2 [Moles/Vol] 21.8 mmol/L Normal 21.0-32.0 [facility] Comment on above: Performed By: #### L 500.2500, L100.0100, L501.4021, L300.3900, L300.4310 ####[facility] [address] [place], [address] Creatinine [Mass/Vol] 1.05 mg/dL Normal 0.70-1.20 [facility] Comment on above: Performed By: #### L 500.2500, L100.0100, L501.4021, L300.3900, L300.4310 ####[facility] [address] [place], [address] ECRCL 33.63 ml/min Low 50-250 [facility] Comment on above: Performed By: #### L 500.2500, L100.0100, L501.4021, L300.3900, L300.4310 ####[facility] [address] [place], [address] GAP 12 Normal 5-15 [facility] Comment on above: Performed By: #### L 500.2500, L100.0100, L501.4021, L300.3900, L300.4310 ####[facility] [address] [place], [address] GFR/1.73 sq M.predicted among non-blacks MDRD (S/P/Bld) [Vol rate/Area] 51 mL/min/{1.73_m2} Low >60 [facility] Comment on above: Result Comment: mL/m in/1.73m2 CKD-EPI Creatinine Equation (2020) Performed By: #### L 500.2500, L100.0100, L501.4021, L300.3900, L300.4310 ####[facility] [address] [place], [address] Glucose [Mass/Vol] 131 mg/dL High 70-99 [facility] Comment on above: Performed By: #### L 500.2500, L100.0100, L501.4021, L300.3900, L300.4310 ####[facility] [address] [place], [address] Potassium [Moles/Vol] 4.4 mmol/L Normal 3.3-5.1 [facility] Comment on above: Result Comment: Hemo lysis present, Results??could be affected. ?? Performed By: #### L 500.2500, L100.0100, L501.4021, L300.3900, L300.4310 ####[facility] [address] [place], [address] Sodium [Moles/Vol] 137 mmol/L Normal 133-145 [facility] Comment on above: Performed By: #### L 500.2500, L100.0100, L501.4021, L300.3900, L300.4310 ####[facility] [address] [place], [address] Urea nitrogen [Mass/Vol] 37 mg/dL High 4-19 [facility] Comment on above: Performed By: #### L 500.2500, L100.0100, L501.4021, L300.3900, L300.4310 ####[facility] [address] [place], [address] Basophil percentageOrdered B y: Teri Garcia on 09-10-2024 Basophils/100 WBC (Bld) 0.4 % 0-1 [facility] Bilirubin Test strip Ql (U)O rdered By: Teri Garcia on 09-10-2024 Bilirubin Ql (U) Negative Negative [facility] Brain without Contraston Brain without Contrast [facility] Imaging Services [address] [place] [address] Brain without Contrast MR#: [id number] Acct: [id number] Name: EZRA GONZALEZ Rep #: [id number] : 1935 F 89 From: Matthias Márquez MD PCP: Dr. Kvng Ochoa, DO Status: ADM MARIELOS Study: Brain without Contrast Date of Exam: 09/10/24 Exam# [id number] Ordering Dr: Matthew Oro DO PROCEDURE: BRAIN [...] Atrophy and mild microvascular changes Reading [facility] CC: Dr. Matthew Oro DO; Dr. Kvng Ochoa DO Barrel Handler: Signed Normal [facility] CBC W/Diff, Automatedon 08-29 Absolute Lymph 1.91 X10 3/uL Normal 0.83-4.51 [facility] Comment on above: Performed By: #### L 500.2500, L100.0100, L501.4021, L300.3900, L300.4310 ####[facility] [address] [place], [address] Absolute Neut 8.3 X10 3/uL High 2.0-7.7 [facility] Comment on above: Performed By: #### L 500.2500, L100.0100, L501.4021, L300.3900, L300.4310 ####[facility] [address] [place], [address] Basophils/100 WBC (Bld) 0.4 % Normal 0-1 [facility] Comment on above: Performed By: #### L 500.2500, L100.0100, L501.4021, L300.3900, L300.4310 ####[facility] [address] [place], [address] Eosinophils/100 WBC (Bld) 1.2 % Normal 0-5 [facility] Comment on above: Performed By: #### L 500.2500, L100.0100, L501.4021, L300.3900, L300.4310 ####[facility] [address] [place], [address] Erythrocyte distribution width (RBC) [Ratio] 13.2 % Normal 11.6-14.6 [facility] Comment on above: Performed By: #### L 500.2500, L100.0100, L501.4021, L300.3900, L300.4310 ####[facility] [address] [place], [address] Hematocrit (Bld) [Volume fraction] 41.7 % Normal 37-47 [facility] Comment on above: Performed By: #### L 500.2500, L100.0100, L501.4021, L300.3900, L300.4310 ####[facility] [address] [place], [address] Hemoglobin (Bld) [Mass/Vol] 13.6 g/dL Normal 12.0-15.0 [facility] Comment on above: Performed By: #### L 500.2500, L100.0100, L501.4021, L300.3900, L300.4310 ####[facility] [address] [place], [address] IG% 0.400 Normal 0.0-0.9 [facility] Comment on above: Result Comment: IG% - Immature Granulocytes (promyelocytes, myelocytes and metamyelocytes) > 1% indicates that a LEFT SHIFT is Present. Performed By: #### L 500.2500, L100.0100, L501.4021, L300.3900, L300.4310 ####[facility] [address] [place], [address] Lymphocytes/100 WBC (Bld) 16.6 % Low 19-41 [facility] Comment on above: Performed By: #### L 500.2500, L100.0100, L501.4021, L300.3900, L300.4310 ####[facility] [address] [place], [address] MCH (RBC) [Entitic mass] 30.6 pg Normal 27.0-32.0 [facility] Comment on above: Performed By: #### L 500.2500, L100.0100, L501.4021, L300.3900, L300.4310 ####[facility] [address] [place], [address] MCHC (RBC) [Mass/Vol] 32.6 g/dL Normal 32-36 [facility] Comment on above: Performed By: #### L 500.2500, L100.0100, L501.4021, L300.3900, L300.4310 ####[facility] [address] [place], [address] MCV (RBC) [Entitic vol] 93.9 fL Normal 81-[address] [facility] Comment on above: Performed By: #### L 500.2500, L100.0100, L501.4021, L300.3900, L300.4310 ####[facility] [address] [place], [address] Monocytes/100 WBC (Bld) 9.1 % Normal 0-[address] [facility] Comment on above: Performed By: #### L 500.2500, L100.0100, L501.4021, L300.3900, L300.4310 ####[facility] [address] [place], [address] Neutrophils/100 WBC (Bld) 72.3 % High 47-70 [facility] Comment on above: Performed By: #### L 500.2500, L100.0100, L501.4021, L300.3900, L300.4310 ####[facility] [address] [place], [address] Nucleated RBC (Bld) [#/Vol] 0 10*3/uL Normal 0-5 [facility] Comment on above: Performed By: #### L 500.2500, L100.0100, L501.4021, L300.3900, L300.4310 ####[facility] [address] [place], [address] Platelet mean volume (Bld) [Entitic vol] 10.4 fL Normal 6.2-12.0 [facility] Comment on above: Performed By: #### L 500.2500, L100.0100, L501.4021, L300.3900, L300.4310 ####[facility] [address] [place], [address] Platelets (Bld) [#/Vol] 269 10*3/uL Normal 150-450 [facility] Comment on above: Performed By: #### L 500.2500, L100.0100, L501.4021, L300.3900, L300.4310 ####[facility] [address] [place], [address] RBC (Bld) [#/Vol] 4.44 10*6/uL Normal 4.2-5.4 [facility] Comment on above: Performed By: #### L 500.2500, L100.0100, L501.4021, L300.3900, L300.4310 ####[facility] [address] [place], [address] RDW SD 45.4 fl High 35.1-43.9 [facility] Comment on above: Performed By: #### L 500.2500, L100.0100, L501.4021, L300.3900, L300.4310 ####[facility] [address] [place], [address] WBC (Bld) [#/Vol] 11.5 10*3/uL High 4.4-11.0 [facility] Comment on above: Performed By: #### L 500.2500, L100.0100, L501.4021, L300.3900, L300.4310 ####[facility] [address] [place], [address] Carbon dioxide, total [Moles /volume] in Central venous bloodOrdered By: Teri Garcia on 09-10-2024 CO2 [Moles/Vol] 21.8 mmol/L 21.0-32.0 [facility] Chloride assayOrdered By: Antonio Garcia on 09-10-2024 Chloride [Moles/Vol] 103 mmol/L 98-108 [facility] Emergency Department Summary on 09-10-2024 Emergency Department Summary [facility] Medical Records Department [address] [place] [address] Emergency Department Summary 09/10/24 MR#: [id number] Acct: [id number] Name: EZRA GONZALEZ Rep #: [id number] : 1935 89 From: Teri Garcia DO [...] son Wilfredo (her eldest son) phone number [phone]. He states that she follows with Dr. Juarez (neurology) and he suspects that this could be epileptic episodes. He also tells me that he talk to her about 615 this morning and she seemed a little off with her mentation as well as her pronunciation. 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 Normal [facility] Eosinophil percentageOrdered By: Teri Garcia on 09-10-2024 Eosinophils/100 WBC (Bld) 1.2 % 0-5 [facility] Erythrocyte distribution wid th ratioOrdered By: Teri Garcia on 09-10-2024 Erythrocyte distribution width (RBC) [Ratio] 13.2 % 11.6-14.6 [facility] Erythrocyte distribution wid th standard deviationOrdered By: Teri Garcia on 09-10-2024 Erythrocyte distribution width (RBC) [Ratio] 45.4 fl High 35.1-43.9 [facility] Glomerular filtration rate ( GFR) estimation/1.73 sq m using serum, plasma, or whole bOrdered By: Teri Garcia on 09-10-2024 GFR/1.73 sq M.predicted among non-blacks MDRD (S/P/Bld) [Vol rate/Area] 51 mL/min/{1.73_m2} Low >60 [facility] Comment on above: mL/min/1.73m2 CKD-EP I Creatinine Equation (2020) H AND P Exam - [facility] 09-10-2024 H&P Exam - Hospitalist [facility] Medical Records [facility] [address] [facility] [place] [address] H P Exam - Hospitalist 09/10/24 1603 MR#: [id number] Acct: [id number] Name: EZRA GONZALEZ Rep #: [id number] : 1935 89 From: Matthew Oro DO PCP: Dr. Kvng Ochoa, Status:ADM MARIELOS Location: [place] [address] HPI - General General Date of Admission: 09/10/24 Date of Service: 09/10/24 Chief Complaint: Dysarthria HPI Narrative EZRA GONZALEZ, is a 89 F who presented to [facility] ED on 09/10/2024 with dysarthria. Patient lives at assisted living at [place]. Has history of seizures and is on [...] any other acute concerns at this time. 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 Normal [facility] Hematocrit Auto (Bld) [Volum e fraction]Ordered By: Teri Garcia on 09-10-2024 Hematocrit (Bld) [Volume fraction] 41.7 % 37-47 [facility] Hemoglobin measurementOrdere d By: Teri Garcia on 09-10-2024 Hemoglobin (Bld) [Mass/Vol] 13.6 g/dL 12.0-15.0 [facility] Immature granulocytes/100 WB C Auto (Bld)Ordered By: Teri Garcia on 09-10-2024 Immature granulocytes/100 WBC (Bld) 0.400 % 0.0-0.9 [facility] Comment on above: IG% - Immature Granu locytes (promyelocytes, myelocytes and metamyelocytes) > 1% indicates that a LEFT SHIFT is Present. International normalized rat io (INR) calculationOrdered By: Teri Garcia on 09-10-2024 INR Coag (Bld) [Relative time] 2.4 {INR} [facility] Ketones Test strip Ql (U)Ord ered By: Teri Garcia on 09-10-2024 Ketones Ql (U) Negative Negative [facility] L499.0042on 09-10-2024 Trop T High Sen 17 ng/L High <=14 [facility] Comment on above: Performed By: #### L 499.0042 #### [facility] [address] [place], [address] L499.0043on 09-10-2024 Trop T High Sen 15 ng/L High <=14 [facility] Comment on above: Performed By: #### L 499.0043 #### [facility] [address] [place], [address] L501.4021on 09-10-2024 Trop T High Sen 18 ng/L High <=14 [facility] Comment on above: Performed By: #### L 500.2500, L100.0100, L501.4021, L300.3900, L300.4310 ####[facility] [address] [place], [address] MCV (mean corpuscular volume ) determinationOrdered By: Teri Garcia on 09-10-2024 MCV (RBC) [Entitic vol] 93.9 fL 81-99 [facility] Magnetic resonance imaging r eportOrdered By: Matthias Márquez on 09-10-2024 Study report [facility] Imaging Services [address] [place] [address] Brain without Contrast MR#: [id number] Acct: [id number] Name: EZRA GONZALEZ Rep #: [id number] : 1935 F 89 From: Bill Márquez MD PCP: Dr. Kvng Ochoa, DO Status: ADM MARIELOS Study:Brain without Contrast Date of Exam: 09/10/24 Exam# [id number] Ordering Dr: Matthew Patel DO PROCEDURE: BRAIN [...] mild microvascular changes Reading Location: [facility] CC: Dr. Matthew Oro, ; Dr. Kvng Ochoa DO ~ Barrel Handler: Signed [facility] Mean corpuscular hemoglobin (MCH) determinationOrdered By: Teri Garcia on 09-10-2024 MCH (RBC) [Entitic mass] 30.6 pg 27.0-32.0 [facility] Mean corpuscular hemoglobin concentration (MCHC) determinationOrdered By: Teri Garcia on 09-10-2024 MCHC (RBC) [Mass/Vol] 32.6 g/dL 32-36 [facility] Mean platelet volume determi nationOrdered By: Teri Garcia on 09-10-2024 Platelet mean volume (Bld) [Entitic vol] 10.4 fL 6.2-12.0 [facility] Microscopic analysis of urin e for red blood cells (RBC)Ordered By: Teri Garcia on 09-10-2024 Microscopic analysis of urine for red blood cells (RBC) 0 SEEN /hpf 0-5 [facility] Monocyte percentageOrdered B y: Teri Garcia on 09-10-2024 Monocytes/100 WBC (Bld) 9.1 % 0-10 [facility] Mucus LM Ql (Urine sed)Order ed By: Teri Garcia on 09-10-2024 Mucus Ql (Urine sed) 0 SEEN /hpf [facility] Neutrophil percentageOrdered By: Teri Garcia on 09-10-2024 Neutrophils/100 WBC (Bld) 72.3 % High 47-70 [facility] Nitrite Test strip Ql (U)Ord ered By: Teri Garcia on 09-10-2024 Nitrite Ql (U) Negative Negative [facility] Nucleated red blood cell per centageOrdered By: Teri Garcia on 09-10-2024 Nucleated RBC/100 WBC (Bld) [Ratio] 0 % 0-5 [facility] Partial Thromboplast Timeon 09-10-2024 aPTT Coag (Bld) [Time] 31.8 s Normal 24.1-36.2 [facility] Comment on above: Performed By: #### L 500.2500, L100.0100, L501.4021, L300.3900, L300.4310 ####[facility] [address] [place], [place], [id number] Platelet countOrdered By: Antonio Garcia on 09-10-2024 Platelets (Bld) [#/Vol] 269 10*3/uL 150-450 [facility] Potassium measurement (mass/ volume)Ordered By: Teri Garcia on 09-10-2024 Potassium (Unsp spec) [Mass/Vol] 4.4 mmol/L 3.3-5.1 [facility] Comment on above: Hemolysis present, R esults could be affected. Protein Test strip Ql (U)Ord ered By: Teri Garcia on 09-10-2024 Protein Ql (U) 30 mg/dl High Negative [facility] Prothrombin Time w/INRon INR Coag (PPP) [Relative time] 2.4 {INR} Normal [facility] Comment on above: Performed By: #### L 500.2500, L100.0100, L501.4021, L300.3900, L300.4310 ####[facility] [address] [place], [place], [id number] PT Coag (PPP) [Time] 26.4 s High 11.7-14.9 [facility] Comment on above: Performed By: #### L 500.2500, L100.0100, L501.4021, L300.3900, L300.4310 ####[facility] [address] [place], [address] Prothrombin timeOrdered By: Teri Garcia on 09-10-2024 PT Coag (PPP) [Time] 26.4 s High 11.7-14.9 [facility] RBC Auto (Bld) [#/Vol]Ordere d By: Teri Garcia on 09-10-2024 RBC (Bld) [#/Vol] 4.44 10*6/uL 4.2-5.4 [facility] STROKE Brain/Head without Co nton 09-10-2024 STROKE Brain/Head without Cont [facility] Imaging Services [address] [place] [address] STROKE Brain/Head without Cont MR#: [id number] Acct: [id number] Name: EZRA GONZALEZ Rep #: [id number] : 1935 F 89 From: Mio nayak MD PCP: Dr. Kvng Ochoa, DO Status: REG ER Study: STROKE Brain/Head without Cont Date of Exam: 0 09/10/24 Exam# [id number] Ordering Dr: Teri Garcia DO PROCEDURE: STROKE [...] 2:05 pm with readback verification. Reading Location: [facility] CC: Dr. Teri Garcia DO; Dr. Kvng Ochoa DO Barrel Handler: Signed Normal [facility] STROKE CTA Head AND Neck W/C onon 09-10-2024 STROKE CTA Head AND Neck W/Con [facility] Imaging Services [address] [place] [address] STROKE CTA Head AND Neck W/Con MR#: [id number] Acct: [id number] Name: EZRA GONZALEZ Rep #: [id number] : 1935 F 89 From: Mio nayak MD PCP: Dr. Kvng Ochoa DO Status: REG ER Study: STROKE CTA Head AND Neck W/Con Date of Exam: 0 09/10/24 Exam# [id number] Ordering Dr: Teri Garcia DO PROCEDURE: STROKE [...] RIGHT Vertebral: Unremarkable. LEFT Vertebral: Unremarkable. Anatomy: [place] of [place] anatomy is normal. Aneurysm or [...] 3:01 pm with readback verification. Reading Location: [id number] CC: Dr. Teri Garcia DO; Dr. Kvng Ochoa DO Barrel Handler: Signed Normal [facility] Serum creatinine measurement (mass/volume)Ordered By: Teri Garcia on 09-10-2024 Creatinine [Mass/Vol] 1.05 mg/dL 0.70-1.20 [facility] Serum glucose measurement (m ass/volume)Ordered By: Teri Garcia on 09-10-2024 Glucose [Mass/Vol] 131 mg/dL High 70-99 [facility] Serum or plasma calcium viktoria urement (mass/volume)Ordered By: Teri Garcia on 09-10-2024 Calcium [Mass/Vol] 8.7 mg/dL 7.6-11.0 [facility] Serum or plasma urea nitroge n measurement (mass/volume)Ordered By: Teri Garcia on 09-10-2024 Urea nitrogen [Mass/Vol] 37 mg/dL High 4-19 [facility] Sodium levelOrdered By: Ollie Garcia on 09-10-2024 Sodium [Moles/Vol] 137 mmol/L 133-145 [facility] Squamous epithelial cells de tection in urine sediment by light microscopyOrdered By: Teri Garcia on 09-10-2024 Epithelial cells.squamous LM Ql (Urine sed) 0-5 SEEN /hpf 5-10 [facility] Troponin T.cardiac [Mass/vol ume] in Serum or Plasma by High sensitivity methodOrdered By: Teri Garcia on 09-10-2024 Troponin T.cardiac High sensitivity method [Mass/Vol] 15 ng/L High <14 [facility] Troponin T.cardiac High sensitivity method [Mass/Vol] 17 ng/L High <14 [facility] Troponin T.cardiac High sensitivity method [Mass/Vol] 18 ng/L High <14 [facility] Urinalysis, Completeon 09-10 BACTERIA RARE Normal None Seen [facility] Comment on above: Order Comment: RANDY CTOR TO SPECIFY Performed By: #### L 400.0001 ####[facility] [address] [place], [address] EPI,SQUAMOUS 0-5 SEEN Normal 5-10 [facility] Comment on above: Order Comment: RANDY CTOR TO SPECIFY Performed By: #### L 400.0001 ####[facility] [address] [place], [address] WBC 10-25 SEEN Normal 0-5 [facility] Comment on above: Order Comment: RANDY CTOR TO SPECIFY Performed By: #### L 400.0001 ####[facility] [address] [place], [address] Mucus Ql (Urine sed) 0 SEEN Normal [facility] Comment on above: Order Comment: RANDY CTOR TO SPECIFY Performed By: #### L 400.0001 ####[facility] [address] [place], [address] RBC 0 SEEN Normal 0-5 [facility] Comment on above: Order Comment: RANDY CTOR TO SPECIFY Performed By: #### L 400.0001 ####[facility] [address] [place], [address] Urine clarityOrdered By: Lashaun Garcia on 09-10-2024 Clarity (U) Clear Clear [facility] Urine color determinationOrd ered By: Teri Garcia on 09-10-2024 Color (U) Straw Yellow [facility] Urine cultureOrdered By: Lashaun Garcia on 09-10-2024 Bacteria identified Cx Nom (U) Klebsiella pneumoniae sp pneum Abnormal [facility] Urine glucose detectionOrder ed By: Teri Garcia on 09-10-2024 Glucose Ql (U) Normal mg/dl Normal [facility] Urine leukocyte esterase det ection by dipstickOrdered By: Teri Garcia on 09-10-2024 Leukocyte esterase Test strip Ql (U) 500 /ul High Negative [facility] Urine pHOrdered By: Teri romero on 09-10-2024 pH (U) 5.0 [pH] 5.0 - 8.0 [facility] Urine sediment bacteria coun t by microscopy (number/high power field)Ordered By: Teri Garcia on 09-10-2024 Bacteria LM.HPF (Urine sed) [#/Area] RARE /hpf None Seen [facility] Urine specific gravity measu rementOrdered By: Teri Garcia on 09-10-2024 Specific gravity (U) [Rel density] 1.010 1.002-1.030 [facility] Urine urobilinogen measureme ntOrdered By: Teri Garcia on 09-10-2024 Urobilinogen Ql (U) Normal mg/dl Normal [facility] White blood cell (WBC) count Ordered By: Teri Garcia on 09-10-2024 WBC (Bld) [#/Vol] 11.5 10*3/uL High 4.4-11.0 [facility] White blood cell countOrdere d By: Teri Garcia on 09-10-2024 White blood cell count 10-25 SEEN /hpf 0-5 [facility] Absolute lymphocyte countOrd ered By: Anoop Blackmon on 09-08-2024 Lymphocytes Auto (Unsp spec) [#/Vol] 2.21 10*3/uL 0.83-4.51 [facility] Absolute neutrophil countOrd ered By: Anoop lBackmon on 09-08-2024 Neutrophils (Bld) [#/Vol] 10.3 10*3/uL High 2.0-7.7 [facility] Anion gap in Serum or Plasma Ordered By: Anooppierce Blackmon on 09-08-2024 Anion gap [Moles/Vol] 11 mmol/L 5-15 [facility] Automated lymphocyte count a s percentage of total leukocytesOrdered By: Anoop Blackmon on 09-08-2024 Lymphocytes/100 WBC Auto (Unsp spec) 16.2 % Low 19-41 [facility] BUN/creatinine ratioOrdered By: Anooppierce Blackmon on 09-08-2024 Urea nitrogen/Creatinine [Mass ratio] 35.2 mg/mg High 10-20 [facility] Basic Metabolic Profile (BMP )on 09-08-2024 BUN/CRE 35.2 RATIO High 10- [facility] Comment on above: Performed By: #### L 100.0100, L500.2500, L300.3900, L3300.4400 ####[facility] [address] [place], [address] Calcium [Mass/Vol] 8.9 mg/dL Normal 7.6-11.0 [facility] Comment on above: Performed By: #### L 100.0100, L500.2500, L300.3900, L3300.4400 ####[facility] [address] [place], [address] Chloride [Moles/Vol] 105 mmol/L Normal 98-108 [facility] Comment on above: Performed By: #### L 100.0100, L500.2500, L300.3900, L3300.4400 ####[facility] [address] [place], [address] CO2 [Moles/Vol] 22.4 mmol/L Normal 21.0-32.0 [facility] Comment on above: Performed By: #### L 100.0100, L500.2500, L300.3900, L3300.4400 ####[facility] [address] [place], [address] Creatinine [Mass/Vol] 1.00 mg/dL Normal 0.70-1.20 [facility] Comment on above: Performed By: #### L 100.0100, L500.2500, L300.3900, L3300.4400 ####[facility] [address] [place], [address] ECRCL 39.57 ml/min Low 50-250 [facility] Comment on above: Performed By: #### L 100.0100, L500.2500, L300.3900, L3300.4400 ####[facility] [address] [place], [address] GAP 11 Normal 5-15 [facility] Comment on above: Performed By: #### L 100.0100, L500.2500, L300.3900, L3300.4400 ####[facility] [address] [place], [address] GFR/1.73 sq M.predicted among non-blacks MDRD (S/P/Bld) [Vol rate/Area] 54 mL/min/{1.73_m2} Low >60 [facility] Comment on above: Result Comment: mL/m in/1.73m2 CKD-EPI Creatinine Equation (2020) Performed By: #### L 100.0100, L500.2500, L300.3900, L3300.4400 ####[facility] [address] [place], [address] Glucose [Mass/Vol] 149 mg/dL High 70-99 [facility] Comment on above: Performed By: #### L 100.0100, L500.2500, L300.3900, L3300.4400 ####[facility] [address] [place], [address] Potassium [Moles/Vol] 4.7 mmol/L Normal 3.3-5.1 [facility] Comment on above: Performed By: #### L 100.0100, L500.2500, L300.3900, L3300.4400 ####[facility] [address] [place], [address] Sodium [Moles/Vol] 138 mmol/L Normal 133-145 [facility] Comment on above: Performed By: #### L 100.0100, L500.2500, L300.3900, L3300.4400 ####[facility] [address] [place], [address] Urea nitrogen [Mass/Vol] 35 mg/dL High 4-19 [facility] Comment on above: Performed By: #### L 100.0100, L500.2500, L300.3900, L3300.4400 ####[facility] [address] [place], [address] Basophil percentageOrdered B y: Anoop Blackmon on 09-08-2024 Basophils/100 WBC (Bld) 0.2 % 0-1 [facility] CBC W/Diff, Automatedon 08-29 Absolute Lymph 2.21 X10 3/uL Normal 0.83-4.51 [facility] Comment on above: Performed By: #### L 100.0100, L500.2500, L300.3900, L3300.4400 #### [facility] [address] [place], [address] Absolute Neut 10.3 X10 3/uL High 2.0-7.7 [facility] Comment on above: Performed By: #### L 100.0100, L500.2500, L300.3900, L3300.4400 #### [facility] [address] [place], [address] Basophils/100 WBC (Bld) 0.2 % Normal 0-1 [facility] Comment on above: Performed By: #### L 100.0100, L500.2500, L300.3900, L3300.4400 #### [facility] [address] [place], [address] Eosinophils/100 WBC (Bld) 0.7 % Normal 0-5 [facility] Comment on above: Performed By: #### L 100.0100, L500.2500, L300.3900, L3300.4400 #### [facility] [address] [place], [address] Erythrocyte distribution width (RBC) [Ratio] 13.2 % Normal 11.6-14.6 [facility] Comment on above: Performed By: #### L 100.0100, L500.2500, L300.3900, L3300.4400 #### [facility] [address] [place], [address] Hematocrit (Bld) [Volume fraction] 41.4 % Normal 37-47 [facility] Comment on above: Performed By: #### L 100.0100, L500.2500, L300.3900, L3300.4400 #### [facility] [address] [place], [address] Hemoglobin (Bld) [Mass/Vol] 13.8 g/dL Normal 12.0-15.0 [facility] Comment on above: Performed By: #### L 100.0100, L500.2500, L300.3900, L3300.4400 #### [facility] [address] [place], [address] IG% 0.400 Normal 0.0-0.9 [facility] Comment on above: Result Comment: IG% - Immature Granulocytes (promyelocytes, myelocytes and metamyelocytes) > 1% indicates that a LEFT SHIFT is Present. Performed By: #### L 100.0100, L500.2500, L300.3900, L3300.4400 #### [facility] [address] [place], [address] Lymphocytes/100 WBC (Bld) 16.2 % Low 19-41 [facility] Comment on above: Performed By: #### L 100.0100, L500.2500, L300.3900, L3300.4400 #### [facility] [address] [place], [address] MCH (RBC) [Entitic mass] 31.4 pg Normal 27.0-32.0 [facility] Comment on above: Performed By: #### L 100.0100, L500.2500, L300.3900, L3300.4400 #### [facility] [address] [place], [address] MCHC (RBC) [Mass/Vol] 33.3 g/dL Normal 32-36 [facility] Comment on above: Performed By: #### L 100.0100, L500.2500, L300.3900, L3300.4400 #### [facility] [address] [place], [address] MCV (RBC) [Entitic vol] 94.1 fL Normal 81-[address] [facility] Comment on above: Performed By: #### L 100.0100, L500.2500, L300.3900, L3300.4400 #### [facility] [address] [place], [address] Monocytes/100 WBC (Bld) 6.6 % Normal 0-10 [facility] Comment on above: Performed By: #### L 100.0100, L500.2500, L300.3900, L3300.4400 #### [facility] [address] [place], [address] Neutrophils/100 WBC (Bld) 75.9 % High 47-70 [facility] Comment on above: Performed By: #### L 100.0100, L500.2500, L300.3900, L3300.4400 #### [facility] [address] [place], [address] Nucleated RBC (Bld) [#/Vol] 0 10*3/uL Normal 0-5 [facility] Comment on above: Performed By: #### L 100.0100, L500.2500, L300.3900, L3300.4400 #### [facility] [address] [place], [address] Platelet mean volume (Bld) [Entitic vol] 10.8 fL Normal 6.2-12.0 [facility] Comment on above: Performed By: #### L 100.0100, L500.2500, L300.3900, L3300.4400 #### [facility] [address] [place], [address] Platelets (Bld) [#/Vol] 326 10*3/uL Normal 150-450 [facility] Comment on above: Performed By: #### L 100.0100, L500.2500, L300.3900, L3300.4400 #### [facility] [address] [place], [address] RBC (Bld) [#/Vol] 4.40 10*6/uL Normal 4.2-5.4 [facility] Comment on above: Performed By: #### L 100.0100, L500.2500, L300.3900, L3300.4400 #### [facility] [address] [place], [address] RDW SD 45.2 fl High 35.1-43.9 [facility] Comment on above: Performed By: #### L 100.0100, L500.2500, L300.3900, L3300.4400 #### [facility] [address] [place], [address] WBC (Bld) [#/Vol] 13.6 10*3/uL High 4.4-11.0 [facility] Comment on above: Performed By: #### L 100.0100, L500.2500, L300.3900, L3300.4400 #### [facility] [address] [place], [address] Carbon dioxide, total [Moles /volume] in Central venous bloodOrdered By: Anoop Blackmon on 09-08-2024 CO2 [Moles/Vol] 22.4 mmol/L 21.0-32.0 [facility] Chloride assayOrdered By: Monserrat Blackmon on 09-08-2024 Chloride [Moles/Vol] 105 mmol/L 98-108 [facility] Emergency Department Summary on 09-08-2024 Emergency Department Summary [facility] Medical Records Department [address] [place] [address] Emergency Department Summary 09/08/24 MR#: [id number] Acct: [id number] Name: EZRA GONZALEZ Rep #: [id number] : 1935 89 From: Anoop Blackmon MD [...] Spinal stenosis Osteoarthritis 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 Normal [facility] Eosinophil percentageOrdered By: Anoop Blackmon on 09-08-2024 Eosinophils/100 WBC (Bld) 0.7 % 0-5 [facility] Erythrocyte distribution wid th ratioOrdered By: Anoop Blackmon on 09-08-2024 Erythrocyte distribution width (RBC) [Ratio] 13.2 % 11.6-14.6 [facility] Erythrocyte distribution wid th standard deviationOrdered By: Anoop Blackmon on 09-08-2024 Erythrocyte distribution width (RBC) [Ratio] 45.2 fl High 35.1-43.9 [facility] Glomerular filtration rate ( GFR) estimation/1.73 sq m using serum, plasma, or whole bOrdered By: Anoop Blackmon on 09-08-2024 GFR/1.73 sq M.predicted among non-blacks MDRD (S/P/Bld) [Vol rate/Area] 54 mL/min/{1.73_m2} Low >60 [facility] Comment on above: mL/min/1.73m2 CKD-EP I Creatinine Equation (2020) Hematocrit Auto (Bld) [Volum e fraction]Ordered By: Anooppierce Blackmon on 09-08-2024 Hematocrit (Bld) [Volume fraction] 41.4 % 37-47 [facility] Hemoglobin measurementOrdere d By: [facility] on 09-08-[facility] Hemoglobin (Bld) [Mass/Vol] 13.8 g/dL 12.0-15.0 [facility] Immature granulocytes/100 WB C Auto (Bld)Ordered By: Anooppierce Blackmon on 09-08-2024 Immature granulocytes/100 WBC (Bld) 0.400 % 0.0-0.9 [facility] Comment on above: IG% - Immature Granu locytes (promyelocytes, myelocytes and metamyelocytes) > 1% indicates that a LEFT SHIFT is Present. International normalized rat io (INR) calculationOrdered By: Anooppierce Blackmon on 09-08-2024 INR Coag (Bld) [Relative time] 2.9 {INR} [facility] MCV (mean corpuscular volume ) determinationOrdered By: Anooppierce Blackmon on 09-08-2024 MCV (RBC) [Entitic vol] 94.1 fL 81-99 [facility] Mean corpuscular hemoglobin (MCH) determinationOrdered By: Anoop Blackmon on 09-08-2024 MCH (RBC) [Entitic mass] 31.4 pg 27.0-32.0 [facility] Mean corpuscular hemoglobin concentration (MCHC) determinationOrdered By: [facility] on 09-08-2024 MCHC (RBC) [Mass/Vol] 33.3 g/dL 32-36 [facility] Mean platelet volume determi nationOrdered By: Anoop Blackmon on 09-08-2024 Platelet mean volume (Bld) [Entitic vol] 10.8 fL 6.2-12.0 [facility] Monocyte percentageOrdered B y: Anoop Blackmon on 09-08-2024 Monocytes/100 WBC (Bld) 6.6 % 0-10 [facility] Neutrophil percentageOrdered By: Anooppierce Blackmon on 09-08-2024 Neutrophils/100 WBC (Bld) 75.9 % High 47-70 [facility] Nucleated red blood cell per centageOrdered By: Anooppierce Blackmon on 09-08-2024 Nucleated RBC/100 WBC (Bld) [Ratio] 0 % 0-5 [facility] Platelet countOrdered By: Monserrat Blackmon on 09-08-2024 Platelets (Bld) [#/Vol] 326 10*3/uL 150-450 [facility] Potassium measurement (mass/ volume)Ordered By: Anoop Blackmon on 09-08-2024 Potassium (Unsp spec) [Mass/Vol] 4.7 mmol/L 3.3-5.1 [facility] Prothrombin Time w/INRon INR Coag (PPP) [Relative time] 2.9 {INR} Normal [facility] Comment on above: Performed By: #### L 100.0100, L500.2500, L300.3900, L3300.4400 ####[facility] [address] [place], [address] PT Coag (PPP) [Time] 30.7 s High 11.7-14.9 [facility] Comment on above: Performed By: #### L 100.0100, L500.2500, L300.3900, L3300.4400 ####[facility] [address] [place], [address] Prothrombin timeOrdered By: Anoop Blackmon on 09-08-2024 PT Coag (PPP) [Time] 30.7 s High 11.7-14.9 [facility] RBC Auto (Bld) [#/Vol]Ordere d By: Anoop Blackmon on 09-08-2024 RBC (Bld) [#/Vol] 4.40 10*6/uL 4.2-5.4 [facility] Serum creatinine measurement (mass/volume)Ordered By: Anoop Blackmon on 09-08-2024 Creatinine [Mass/Vol] 1.00 mg/dL 0.70-1.20 [facility] Serum glucose measurement (m ass/volume)Ordered By: Anoop Blackmon on 09-08-2024 Glucose [Mass/Vol] 149 mg/dL High 70-99 [facility] Serum or plasma calcium viktoria urement (mass/volume)Ordered By: Anoop Blackmon on 09-08-2024 Calcium [Mass/Vol] 8.9 mg/dL 7.6-11.0 [facility] Serum or plasma lamotrigine measurement (mass/volume)Ordered By: Anoop Blackmon on 09-08-2024 lamoTRIgine [Mass/Vol] 1.2 ug/mL Low 2.0-20.0 [facility] Comment on above: Detection Limit = 1. 0Performed at: [facility] [id number] Director: Brandon Wells MD, Phone: [phone] Serum or plasma urea nitroge n measurement (mass/volume)Ordered By: Anoop Blackmon on 09-08-2024 Urea nitrogen [Mass/Vol] 35 mg/dL High 4-19 [facility] Sodium levelOrdered By: Anoop Blackmon on 09-08-2024 Sodium [Moles/Vol] 138 mmol/L 133-145 [facility] White blood cell (WBC) count Ordered By: Anoop Blackmon on 09-08-2024 WBC (Bld) [#/Vol] 13.6 10*3/uL High 4.4-11.0 [facility] International normalized rat io (INR) calculationOrdered By: Cesar Cole on 08-18-2024 INR Coag (Bld) [Relative time] 2.6 {INR} [facility] Prothrombin timeOrdered By: Cesar Douglas on 08-18-2024 PT Coag (PPP) [Time] 28.1 s High 11.7-14.9 [facility] International normalized rat io (INR) calculationOrdered By: [place] Douglas on 07-19-2024 INR Coag (Bld) [Relative time] 2.2 {INR} [facility] Prothrombin timeOrdered By: Cesar Cole on 07-19-2024 PT Coag (PPP) [Time] 25.3 s High 11.7-14.9 [facility] Cardiology Visit Reporton Cardiology Visit Report [facility] [facility] [address] [place] [address] OFFICE VISIT Date of Service: 07/01/24 MR#: [id number] Acct: [id number] Name: EZRA GONZALEZ Rep #: [id number] : 1935 Provider: Dr. Cesar Cole MD Age/Sex: 89/F Location: [facility] Status: Signed HPI HPI History of Present Illness Details: Ezra Gonazlez is an 89-year-old lady with a previous [...] atrial fibrillation. She is a reside at [facility]. 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 Normal [facility] International normalized rat io (INR) calculationOrdered By: Kvng Ochoa on 06-16-2024 INR Coag (Bld) [Relative time] 2.4 {INR} [facility] Prothrombin timeOrdered By: Kvng Ochoa on 06-16-2024 PT Coag (PPP) [Time] 26.6 s High 11.7-14.9 [facility] Absolute lymphocyte countOrd ered By: Kvng Ochoa on 06-09-2024 Lymphocytes Auto (Unsp spec) [#/Vol] 2.06 10*3/uL 0.83-4.51 [facility] Absolute neutrophil countOrd ered By: Kvng Ochoa on 06-09-2024 Neutrophils (Bld) [#/Vol] 5.6 10*3/uL 2.0-7.7 [facility] Anion gap in Serum or Plasma Ordered By: Kvng Ochoa on 06-09-2024 Anion gap [Moles/Vol] 13 mmol/L 5-15 [facility] Automated lymphocyte count a s percentage of total leukocytesOrdered By: Kvng Ochoa on 06-09-2024 Lymphocytes/100 WBC Auto (Unsp spec) 23.0 % 19-41 [facility] BUN/creatinine ratioOrdered By: Kvng Ochoa on 06-09-2024 Urea nitrogen/Creatinine [Mass ratio] 21.5 mg/mg High 10-20 [facility] Basophil percentageOrdered B y: Kvng Ochoa on 06-09-2024 Basophils/100 WBC (Bld) 0.6 % 0-1 [facility] Carbon dioxide, total [Moles /volume] in Central venous bloodOrdered By: Kvng Ochoa on 06-09-2024 CO2 [Moles/Vol] 22.4 mmol/L 21.0-32.0 [facility] Chloride assayOrdered By: Costa Ochoa on 06-09-2024 Chloride [Moles/Vol] 108 mmol/L 98-108 [facility] Eosinophil percentageOrdered By: Kvng Ochoa on 06-09-2024 Eosinophils/100 WBC (Bld) 4.8 % 0-5 [facility] Erythrocyte distribution wid th ratioOrdered By: Kvng Ochoa on 06-09-2024 Erythrocyte distribution width (RBC) [Ratio] 14.6 % 11.6-14.6 [facility] Erythrocyte distribution wid th standard deviationOrdered By: Kvng Ochoa on 06-09-2024 Erythrocyte distribution width (RBC) [Entitic vol] 49.2 fL High 35.1-43.9 [facility] Erythrocyte distribution width (RBC) [Ratio] 49.2 fl High 35.1-43.9 [facility] GFR/1.73 sq M.predicted sonia g non-blacks MDRD (S/P/Bld) [Vol rate/Area]Ordered By: Kvng Ochoa on 06-09-2024 Estimated GFR (MDRD) Non-Af Amer 59 Low >60 [facility] Comment on above: mL/min/1.73m2 CKD-EP I Creatinine Equation (2020) Glomerular filtration rate ( GFR) estimation/1.73 sq m using serum, plasma, or whole bOrdered By: Kvng Ochoa on 06-09-2024 GFR/1.73 sq M.predicted among non-blacks MDRD (S/P/Bld) [Vol rate/Area] 59 mL/min/{1.73_m2} Low >60 [facility] Comment on above: mL/min/1.73m2 CKD-EP I Creatinine Equation (2020) Hematocrit Auto (Bld) [Volum e fraction]Ordered By: Kvng Ochoa on 06-09-2024 Hematocrit (Bld) [Volume fraction] 38.3 % 37-47 [facility] Hemoglobin A1c percentageOrd ered By: Kvng Ochoa on 06-09-2024 HbA1c (Bld) [Mass fraction] 6.5 % >5.7 [facility] Hemoglobin measurementOrdere d By: Kvng Ochoa on 06-09-2024 Hemoglobin (Bld) [Mass/Vol] 12.4 g/dL 12.0-15.0 [facility] Immature granulocytes/100 WB C Auto (Bld)Ordered By: Kvng Ochoa on 06-09-2024 Immature granulocytes/100 WBC (Bld) 0.200 % 0.0-0.9 [facility] Comment on above: IG% - Immature Granu locytes (promyelocytes, myelocytes and metamyelocytes) > 1% indicates that a LEFT SHIFT is Present. Lymphocytes Auto (Unsp spec) [#/Vol]Ordered By: Kvng Ochoa on 06-09-2024 Lymphocytes (Bld) [#/Vol] 2.06 10*3/uL 0.83-4.5 1 [facility] Lymphocytes/100 WBC Auto (Un sp spec)Ordered By: Kvng Ochoa on 06-09-2024 Lymphocytes/100 WBC (Bld) 23.0 % 19-41 [facility] MCV (mean corpuscular volume ) determinationOrdered By: Kvng Ochoa on 06-09-2024 MCV (RBC) [Entitic vol] 91.8 fL 81-99 [facility] Mean corpuscular hemoglobin (MCH) determinationOrdered By: Kvng Ochoa on 06-09-2024 MCH (RBC) [Entitic mass] 29.7 pg 27.0-32.0 [facility] Mean corpuscular hemoglobin concentration (MCHC) determinationOrdered By: Kvng Ochoa on 06-09-2024 MCHC (RBC) [Mass/Vol] 32.4 g/dL 32-36 [facility] Mean platelet volume determi nationOrdered By: Kvng Ochoa on 06-09-2024 Platelet mean volume (Bld) [Entitic vol] 10.2 fL 6.2-12.0 [facility] Monocyte percentageOrdered B y: Kvng Ochoa on 06-09-2024 Monocytes/100 WBC (Bld) 8.6 % 0-10 [facility] Neutrophil percentageOrdered By: Kvng Ochoa on 06-09-2024 Neutrophils/100 WBC (Bld) 62.8 % 47-70 [facility] Nucleated red blood cell per centageOrdered By: Kvng Ochoa on 06-09-2024 Nucleated RBC/100 WBC (Bld) [Ratio] 0 % 0-5 [facility] Platelet countOrdered By: Costa Ochoa on 06-09-2024 Platelets (Bld) [#/Vol] 323 10*3/uL 150-450 [facility] Potassium (Unsp spec) [Mass/ Vol]Ordered By: Kvng Ochoa on 06-09-2024 Potassium [Moles/Vol] 4.7 mmol/L 3.3-5.1 [facility] Potassium measurement (mass/ volume)Ordered By: Kvng Ochoa on 06-09-2024 Potassium (Unsp spec) [Mass/Vol] 4.7 mmol/L 3.3-5.1 [facility] RBC Auto (Bld) [#/Vol]Ordere d By: Kvng Ochoa on 06-09-2024 RBC (Bld) [#/Vol] 4.17 10*6/uL Low 4.2-5.4 [facility] Serum creatinine measurement (mass/volume)Ordered By: Kvng Ochoa on 06-09-2024 Creatinine [Mass/Vol] 0.94 mg/dL 0.70-1.20 [facility] Serum glucose measurement (m ass/volume)Ordered By: Kvng Ochoa on 06-09-2024 Glucose [Mass/Vol] 137 mg/dL High 70-99 [facility] Serum or plasma calcium viktoria urement (mass/volume)Ordered By: Kvng Ochoa on 06-09-2024 Calcium [Mass/Vol] 8.9 mg/dL 7.6-11.0 [facility] Serum or plasma urea nitroge n measurement (mass/volume)Ordered By: Kvng Ochoa on 06-09-2024 Urea nitrogen [Mass/Vol] 20 mg/dL High 4-19 [facility] Sodium levelOrdered By: Dru Ochoa on 06-09-2024 Sodium [Moles/Vol] 143 mmol/L 133-145 [facility] White blood cell (WBC) count Ordered By: Kvng Ochoa on 06-09-2024 WBC (Bld) [#/Vol] 9.0 10*3/uL 4.4-11.0 [facility] INR Coag (BldC) [Relative ti me]Ordered By: Cesar Cole on 05-19-2024 INR Coag (Bld) [Relative time] 2.9 {INR} [facility] Comment on above: Critical Value > 4.0 International normalized rat io (INR) measurement by fingerstickOrdered By: Cesar Cole on 05-19-2024 INR Coag (BldC) [Relative time] 2.9 [facility] Comment on above: Critical Value > 4.0 PT Coag (Bld) [Time]Ordered By: Cesar Cole on 05-19-2024 Bedside Prothrombin Time 30.4 SEC High 11.7-14.9 [facility] Whole blood prothrombin time Ordered By: Cesar Cole on 05-19-2024 PT Coag (Bld) [Time] 30.4 s High 11.7-14.9 [facility] Serum or plasma lamotrigine measurement (mass/volume)Ordered By: Anant Juarez on 05-12-2024 lamoTRIgine [Mass/Vol] 1.8 ug/mL Low 2.0-20.0 [facility] Comment on above: Detection Limit = 1. 0Performed at: [facility] [address] [id number] Director: Brandon Wells MD, Phone: [phone] Venous blood ammonia measure mentOrdered By: Anant Juarez on 05-12-2024 Ammonia (P) [Moles/Vol] 17.0 umol/L - [facility] lamoTRIgine [Mass/Vol]Ordere d By: Anant Juarez on 05-12-2024 Lamotrigine (Lamictal) Level 1.8 ug/mL Low 2.0-20.0 [facility] Comment on above: Detection Limit = 1. 0Performed at: [facility] [id number] [facility], [place], [place] [id number] Director: Brandon Wells MD, Phone: [phone] Neurology Visit Reporton Neurology Visit Report [facility] [address], [address] [place] [address] OFFICE VISIT Date of Service: 05/10/24 MR#: [id number] Acct: [id number] Name: EZRA GONZALEZ Rep #: [id number] : 1935 Provider: Dr. Anant baez MD Age/Sex: 88/F [place] [facility] [place] 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 She has become lost while driving [...] nature. Th (more content not included)... Normal [facility] INR Coag (BldC) [Relative ti me]Ordered By: Cesar Cole on 05-05-2024 INR Coag (Bld) [Relative time] 2.5 {INR} [facility] Comment on above: Critical Value > 4.0 PT Coag (Bld) [Time]Ordered By: Cesar Cole on 05-05-2024 Bedside Prothrombin Time 26.9 SEC High 11.7-14.9 [facility] International normalized rat io (INR) calculationOrdered By: Kvng Ochoa on 04-28-2024 INR Coag (Bld) [Relative time] 3.4 {INR} [facility] Prothrombin timeOrdered By: Kvng Ochoa on 04-28-2024 PT Coag (PPP) [Time] 35.4 s High 11.7-14.9 [facility] International normalized rat io (INR) calculationOrdered By: Kvng Ochoa on 04-14-2024 INR Coag (Bld) [Relative time] 3.0 {INR} [facility] Prothrombin timeOrdered By: Kvng Ochoa on 04-14-2024 PT Coag (PPP) [Time] 31.4 s High 11.7-14.9 [facility] Blood urea nitrogen (BUN)/cr eatinine ratioOrdered By: Kvng Ochoa on 04-09-2024 Urea nitrogen/Creatinine [Mass ratio] 13.5 mg/mg 01-17 [facility] Carbon dioxide measurementOr dered By: Kvng Ochoa on 04-09-2024 CO2 [Moles/Vol] 28.0 mmol/L 21.0-32.0 [facility] Chloride measurementOrdered By: Kvng Ochoa on 01-10-2025 Chloride [Moles/Vol] 106 mmol/L 98-107 [facility] Estimated glomerular filtrat ion rate (GFR) AmericanOrdered By: Kvng Ochoa on 04-09-2024 Estimated GFR (MDRD) Amer 70 mL/min >60 [facility] Comment on above: GFR Calc Glomerular filtration rate ( GFR) estimationOrdered By: Kvng Ochoa on 04-09-2024 Estimated GFR (MDRD) Non-Af Amer 58 mL/min Low >60 [facility] Comment on above: Non- GFR Calc Glucose measurementOrdered B y: Kvng Ochoa on 04-09-2024 Glucose [Mass/Vol] 116 mg/dL High 74-106 [facility] Comment on above: Fasting Glucose resu lt from 100 to 125 mg/dL suggests IMPAIRED HOMEOSTASIS per A.D.A. criteria. Potassium measurementOrdered By: Kvng Ochoa on 04-09-2024 Potassium [Moles/Vol] 4.3 mmol/L 3.5-5.1 [facility] Serum anion gap measurementO rdered By: Kvng Ochoa on 04-09-2024 Anion gap [Moles/Vol] 3 mmol/L Low 5-15 [facility] Serum or plasma calcium viktoria urement (mass/volume)Ordered By: Kvng Ochoa on 04-09-2024 Calcium [Mass/Vol] 8.8 mg/dL 8.5-10.1 [facility] Serum or plasma creatinine m easurement (mass/volume)Ordered By: Kvng Ochoa on 04-09-2024 Creatinine [Mass/Vol] 0.96 mg/dL 0.55-1.02 [facility] Comment on above: The validity of the calculated GFR & GFRAA in patients over 70 years has not been determined. Clinical correlation is essential. Serum or plasma urea nitroge n measurement (mass/volume)Ordered By: Kvng Ochoa on 04-09-2024 Urea nitrogen [Mass/Vol] 13 mg/dL 7-18 [facility] Sodium levelOrdered By: Dru Ochoa on 04-09-2024 Sodium [Moles/Vol] 137 mmol/L 136-145 [facility] International normalized rat io (INR) calculationOrdered By: Kvng Ochoa on 04-06-2024 INR Coag (Bld) [Relative time] 2.6 {INR} [facility] Prothrombin timeOrdered By: Kvng Ochoa on 04-06-2024 PT Coag (PPP) [Time] 28.8 s High 11.7-14.9 [facility] INR Coag (BldC) [Relative ti me]Ordered By: Kvng Ochoa on 04-05-2024 INR Coag (Bld) [Relative time] 3.5 {INR} [facility] Comment on above: Critical Value > 4.0 PT Coag (Bld) [Time]Ordered By: Kvng Ochoa on 04-05-2024 Bedside Prothrombin Time 35.4 SEC High 11.7-14.9 [facility] International normalized rat io (INR) calculationOrdered By: Kvng Ochoa on 03-29-2024 INR Coag (Bld) [Relative time] 1.5 {INR} [facility] Prothrombin timeOrdered By: Kvng Ochoa on 03-29-2024 PT Coag (PPP) [Time] 17.9 s High 11.7-14.9 [facility] INR Coag (BldC) [Relative ti me]Ordered By: Kvng Ochoa on 03-26-2024 INR Coag (Bld) [Relative time] 3.4 {INR} [facility] Comment on above: Critical Value > 4.0 PT Coag (Bld) [Time]Ordered By: Kvng Ochoa on 03-26-2024 Bedside Prothrombin Time 34.4 SEC High 11.7-14.9 [facility] INR Coag (BldC) [Relative ti me]Ordered By: Kvng Ochoa on 03-25-2024 INR Coag (Bld) [Relative time] 3.8 {INR} [facility] Comment on above: Critical Value > 4.0 PT Coag (Bld) [Time]Ordered By: Kvng Ochoa on 03-25-2024 Bedside Prothrombin Time 37.8 SEC High 11.7-14.9 [facility] International normalized rat io (INR) calculationOrdered By: Kvng Ochoa on 03-19-2024 INR Coag (Bld) [Relative time] 3.0 {INR} [facility] Prothrombin timeOrdered By: Kvng Ochoa on 03-19-2024 PT Coag (PPP) [Time] 30.7 s High 11.7-14.9 [facility] INR Coag (BldC) [Relative ti me]Ordered By: Kvng Ochoa on 03-17-2024 INR Coag (Bld) [Relative time] 3.3 {INR} [facility] Comment on above: Critical Value > 4.0 PT Coag (Bld) [Time]Ordered By: Kvng Ochoa on 03-17-2024 Bedside Prothrombin Time 34.2 SEC High 11.7-14.9 [facility] INR Coag (BldC) [Relative ti me]Ordered By: Kvng Ochoa on 03-10-2024 INR Coag (Bld) [Relative time] 2.4 {INR} [facility] Comment on above: Critical Value > 4.0 PT Coag (Bld) [Time]Ordered By: Kvng Ochoa on 03-10-2024 Bedside Prothrombin Time 25.4 SEC High 11.7-14.9 [facility] International normalized rat io (INR) calculationOrdered By: Kvng Ochoa on 03-08-2024 INR Coag (Bld) [Relative time] 1.8 {INR} [facility] Prothrombin timeOrdered By: Kvng Ochoa on 03-08-2024 PT Coag (PPP) [Time] 21.1 s High 11.7-14.9 [facility] INR Coag (BldC) [Relative ti me]Ordered By: Kvng Ochoa on 03-04-2024 INR Coag (Bld) [Relative time] 1.8 {INR} [facility] Comment on above: Critical Value > 4.0 PT Coag (Bld) [Time]Ordered By: Kvng Ochoa on 03-04-2024 Bedside Prothrombin Time 20.2 SEC High 11.7-14.9 [facility] INR Coag (BldC) [Relative ti me]Ordered By: Kvng Ochoa on 02-05-2024 INR Coag (Bld) [Relative time] 2.2 {INR} [facility] Comment on above: Critical Value > 4.0 PT Coag (Bld) [Time]Ordered By: Kvng Ochoa on 02-05-2024 Bedside Prothrombin Time 22.8 SEC High 11.7-14.9 [facility] Capillary blood internationa l normalized ratio (INR)Ordered By: Alexandra Hagen on 06-30-2023 INR Coag (BldC) [Relative time] 2.4 [facility] Comment on above: Critical Value > 4.0 Whole blood prothrombin time Ordered By: Alexandra Hagen on 06-30-2023 PT Coag (Bld) [Time] 24.6 s 11.7-14.9 [facility] CARECOORDon 2023 CAR[facility]OORD Patient Choice Patient Name: EZRA GONZALEZ Date of : 1935 [facility]Don 06[facility]20-2023 [facility] Admission Date: 06/16/2023 01:38 PM Patient Name: EZRA GONZALEZ Location: [address] Date of : 1935 ------- Placement Information ------- Referral Type:Home Health Care Services - New Referral ID:[id number] Provider Name:[facility] Address 1:[address] Address 2: City:[place] Selection Factors:Patient/Famil y Choice State:[place] Normal [facility] CARECOSTATELINE TCC updated SW, pt i s requesting [...] pt order lunch. Notified TONIO, RN and cardiac care unit nurse. . [facility] I SPOKE WITH DONOVAN, CROWN PERFORATOR OPERATOR AT [facility]. THEY CAN TAKE PT BACK TODAY. THEY CAN PROVIDE TRANSPORTATION BACK TO FACILITY AROUND 3 PM. AWARE PT WILL NEED PT AT FACILITY, THEY USE [facility], DID LET LIAISON NOW. WENT TO [...] SECURE CHAT WITH CONNIE PEREZ REGARDING THIS. [facility] Laboratory - Chemistry and C hemistry - challengeon 06-20-2023 Glucose [Mass/Vol] 125 mg/dL High 70 - 100 mg/dL [facility] - Coagulationon 0 3-22-2024 PT Coag (Bld) [Time] 11.3 s 9.0 - 1 2.0 s [facility] No Panel Informationon 06-19 Interpretation and review of laboratory results Abnormal [facility] Performed by: [facility], [address] [place] [address] CLIA ID: [id number] [facility] Radiology Study observation (narrative) Trina isabel PROTHROMBIN TIMEon INR Coag (PPP) [Relative time] 1.1 {INR} Normal 0.9-1.1 [facility] Comment on above: Result Comment: Reji [...] Myocardial Infarction Performed By: #### L [id number] ####Wastewater Manager: ALEXANDRA BUSTAMANTE ([phone])[facility] ([facility])[address] [place] [address] PT Coag (PPP) [Time] 11.3 s Normal 9.0-12.0 [facility] Comment on above: Performed By: #### L [id number] ####Wastewater Manager: ALEXANDRA BUSTAMANTE ([phone])[facility] ([facility])[address] [place] [address] PT Coag (Bld) [Time]on 06-19 INR Coag (PPP) [Relative time] 1.1 {INR} 0.9 - 1.1 [facility] Comment on above: Recommended Anticoag ulant [...] Interpretation and review of laboratory results Normal [facility] Progress Noteon 06-20-2023 Progress Note Dc via DM cot to Josep MCARTHUR with all belongings [facility] Progress Note Called report to Maryanne at [facility] Progress Note [facility] Anticoagulatio n Management Service (RIA) Inpatient Warfarin Consult HPI: Ezra Gonzalez is a 87 y.o. female admitted on 06/16/2023 for Closed displaced fracture of medial condyle of right humerus, initial encounter [S42.449L] History reviewed. No pertinent past medical history. [...] patient can be classified as high risk ([id number] = 8). 2. Monitor for s/s of bleeding and drug interactions. Will adjust dose accordingly 3. RIA will manage while inpatient Dc Lombardi, PharmD Candidate Toshia Sanches, JpD, BCPS RIA is available daily [phone] via [employer] Chat. If no response on Sec[employer] Chat then please page [phone]. Normal [facility] BASIC METABOLIC PANELon 05-30 Anion gap [Moles/Vol] 11 mmol/L Normal 3-13 [facility] Comment on above: Performed By: #### L AB15 ####Wastewater Manager: ALEXANDRA BUSTAMANTE ([phone])[facility] ([facility])[address] [place] [address] Calcium [Mass/Vol] 8.3 mg/dL Low 8.4-10.4 [facility] Comment on above: Performed By: #### L AB15 ####Wastewater Manager: ALEXANDRA BUSTAMANTE ([phone])[facility] ([facility])[address] [place] [address] Chloride [Moles/Vol] 102 mmol/L Normal 98-107 [facility] Comment on above: Performed By: #### L AB15 ####Wastewater Manager: ALEXANDRA BUSTAMANTE ([phone])[facility] ([facility])[address] [place] [address] CO2 [Moles/Vol] 21 mmol/L Low 22-30 [facility] Comment on above: Performed By: #### L AB15 ####Wastewater Manager: ALEXANDRA BUSTAMANTE ([phone])[facility] ([facility])[address] [place] [address] Creatinine [Mass/Vol] 0.84 mg/dL Normal 0.52-1.04 [facility] Comment on above: Performed By: #### L AB15 ####Wastewater Manager: ALEXANDRA BUSTAMANTE ([phone])[facility] ([facility])[address] [place] [address] GLOMERULAR FILTRATION RATE ML/MIN/1.73 SQ M.PREDICTED 67.4 mL/min/1.73m*2 Normal >60.0 [facility] Comment on above: Result Comment: Calc ulation based on the Chronic Kidney Disease Epidemiology Collaboration (CKD-EPI) equation refit without adjustment for race Performed By: #### L AB15 ####Wastewater Manager: ALEXANDRA BUSTAMANTE ([phone])[facility] ([facility])[address] [place] [address] [place] Glucose [Mass/Vol] 263 mg/dL High 70-100 [facility] Comment on above: Performed By: #### L AB15 ####Wastewater Manager: ALEXANDRA BUSTAMANTE ([phone])[facility] ([facility])[address] [place] [address] [place] Potassium [Moles/Vol] 4.7 mmol/L Normal 3.5-5.1 [facility] Comment on above: Performed By: #### L AB15 ####Wastewater Manager: ALEXANDRA BUSTAMANTE ([phone])[facility] ([facility])[address] [place] [address] Sodium [Moles/Vol] 133 mmol/L Low 135-145 [facility] Comment on above: Performed By: #### L AB15 ####Wastewater Manager: ALEXANDRA BUSTAMANTE ([phone])[facility] ([facility])[address] [place] [address] Urea nitrogen [Mass/Vol] 27 mg/dL High 7-17 [facility] Comment on above: Performed By: #### L AB15 ####Wastewater Manager: ALEXANDRA BUSTAMANTE ([phone])[facility] ([facility])[address] [place] [address] Basic metabolic 1998 panelon 06-19-2023 Anion gap [Moles/Vol] 11 mmol/L 3 - 13 mmol/L [facility] Calcium [Mass/Vol] 8.3 mg/dL Low 8.4 - 10. 4 mg/dL [facility] Chloride [Moles/Vol] 102 mmol/L 98 - 10 7 mmol/L [facility] CO2 [Moles/Vol] 21 mmol/L Low 22 - 30 mmol/L [facility] Creatinine [Mass/Vol] 0.84 mg/dL 0.52 - 1.04 mg/dL [facility] GFR/1.73 sq M.predicted MDRD (S/P/Bld) [Vol rate/Area] 67.4 mL/min/{1.73_m2} - PINF [facility] Comment on above: Calculation based on the Chronic Kidney Disease Epidemiology Collaboration (CKD-EPI) equation refit without adjustment for race Glucose [Mass/Vol] 263 mg/dL High 70 - 100 mg/dL [facility] Interpretation and review of laboratory results Abnormal [facility] Potassium [Moles/Vol] 4.7 mmol/L 3.5 - 5.1 mmol/L [facility] Sodium [Moles/Vol] 133 mmol/L Low 135 - 145 mmol/L [facility] Urea nitrogen [Mass/Vol] 27 mg/dL High 7 - 17 mg/dL [facility] CARECOORDon 06-19-2023 CARECOORD DAY #1 S/P ORIF OF RIGHT ARM. WAITING FOR PT/OT EVALS FOR DC PLANNING. Normal [facility] CBC W Auto Differential pane l (Bld)Ordered By: Leona Thakur on 06-19-2023 Basophils (Bld) [#/Vol] 0.0 10*3/uL 0.0 - 0.2 10*3/uL [facility] Basophils/100 WBC (Bld) 0.2 % 0.0 - 2.0 % [facility] Eosinophils (Bld) [#/Vol] 0.0 10*3/uL 0. 0 - 0.5 10*3/uL [facility] Eosinophils/100 WBC (Bld) 0.0 % 0.0 - 6.0 % [facility] Erythrocyte distribution width (RBC) [Ratio] 13.6 % 11.5 - 15.0 % [facility] Hematocrit (Bld) [Volume fraction] 35.0 % 35.0 - 47.0 % [facility] Hemoglobin (Bld) [Mass/Vol] 11.4 g/dL Low 11.7 - 16.0 g/dL [facility] Immature granulocytes (Bld) [#/Vol] 0.1 10*3/uL High NINF - 0.1 10*3/uL [facility] Immature granulocytes/100 WBC (Bld) 0.6 % 0.0 - 2.0 % [facility] Interpretation and review of laboratory results Abnormal [facility] th Lymphocytes (Bld) [#/Vol] 0.8 10*3/uL Low 1. 0 - 4.3 10*3/uL [facility] Lymphocytes/100 WBC (Bld) 6.4 % Low 15 .0 - 45.0 % [facility] MCH (RBC) [Entitic mass] 28.6 pg 26. 0 - 34.0 pg [facility] MCHC (RBC) [Mass/Vol] 32.6 % 30.5 - 36.0 % [facility] MCV (RBC) [Entitic vol] 87.9 fL 77.0 - 99.0 fL [facility] Monocytes (Bld) [#/Vol] 0.6 10*3/uL 0.0 - 0.9 10*3/uL [facility] Monocytes/100 WBC (Bld) 4.6 % Low 5.0 - 13.0 % [facility] Neutrophils (Bld) [#/Vol] 11.2 10*3/uL High 1. 8 - 7.5 10*3/uL [facility] Neutrophils/100 WBC (Bld) 88.2 % High 38 .0 - 82.0 % [facility] Nucleated RBC/100 WBC (Bld) [Ratio] 0.0 % [facility] Platelet mean volume (Bld) [Entitic vol] 10.2 fL 9.0 - 12.7 fL [facility] Platelets (Bld) [#/Vol] 260 10*3/uL 140 - 440 10*3/uL [facility] RBC (Bld) [#/Vol] 3.98 10*6/uL 3.80 - 5.2 0 10*6/uL [facility] WBC (Bld) [#/Vol] 12.7 10*3/uL High 3.6 - 10.7 10*3/uL [facility] CBC WITH AUTO DIFFERENTIALon 06-19-2023 Basophils (Bld) [#/Vol] 0.0 10*3/uL Normal 0.0-0.2 [facility] Comment on above: Performed By: #### L [id number] ####Wastewater Manager: ALEXANDRA BUSTAMANTE ([phone])[address] Basophils/100 WBC (Bld) 0.2 % Normal 0.0-2.0 S [facility] Comment on above: Performed By: #### L [id number] ####Wastewater Manager: ALEXANDRA [phone])[facility] ([facility])[address] [place] [address] Eosinophils (Bld) [#/Vol] 0.0 10*3/uL Normal 0.0-0.5 [facility] Comment on above: Performed By: #### L [id number] ####Wastewater Manager: ALEXANDRA [phone])[facility])[address] [place] [address] Eosinophils/100 WBC (Bld) 0.0 % Normal 0.0-6.0 [facility] Comment on above: Performed By: #### L [id number] ####Wastewater Manager: ALEXANDRA BUSTAMANTE ([phone])[facility])[address] [place] [address] Erythrocyte distribution width (RBC) [Ratio] 13.6 % Normal 11.5-15.0 [facility] Comment on above: Performed By: #### L [id number] ####Wastewater Manager: ALEXANDRA BUSTAMANTE ([phone])[facility])[address] [place] [address] Hematocrit (Bld) [Volume fraction] 35.0 % Normal 35.0-47.0 [facility] Comment on above: Performed By: #### L [id number] ####Wastewater Manager: ALEXANDRA BUSTAMANTE ([phone])[facility])[address] [place] [address] Hemoglobin (Bld) [Mass/Vol] 11.4 g/dL Low 11.7-16.0 [facility] Comment on above: Performed By: #### L [id number] ####Wastewater Manager: ALEXANDRA BUSTAMANTE ([phone])[facility])[address] [place] [address] IMMATURE GRANS % 0.6 % Normal 0.0-2.0 [facility] Comment on above: Performed By: #### L [id number] ####Wastewater Manager: ALEXANDRA BUSTAMANTE ([phone])[facility])[address] [place] [address] IMMATURE GRANS ABSOLUTE 0.1 10*3/uL High <0.1 [facility] Comment on above: Performed By: #### L [id number] ####Wastewater Manager: ALEXANDRA BUSTAMANTE ([phone])[facility])[address] [place] [address] Lymphocytes (Bld) [#/Vol] 0.8 10*3/uL Low 1.0-4.3 [facility] Comment on above: Performed By: #### L [id number] ####Wastewater Manager: ALEXANDRA BUSTAMANTE ([phone])[facility])[address] [place] [address] Lymphocytes/100 WBC (Bld) 6.4 % Low 15.0-45.0 [facility] Comment on above: Performed By: #### L [id number] ####Wastewater Manager: ALEXANDRA BUSTAMANTE ([phone])[facility])[address] [place] [address] MCH (RBC) [Entitic mass] 28.6 pg Normal 26.0-34.0 [facility] Comment on above: Performed By: #### L [id number] ####Wastewater Manager: ALEXANDRA BUSTAMANTE ([phone])[facility])[address] [place] [address] MCHC 32.6 % Normal 30.5-36.0 [facility] Comment on above: Performed By: #### L [id number] ####Wastewater Manager: ALEXANDRA BUSTAMANTE ([phone])[facility])[address] [place] [address] MCV (RBC) [Entitic vol] 87.9 fL Normal 77.0-99.0 S [facility] Comment on above: Performed By: #### L [id number] ####Wastewater Manager: ALEXANDRA BUSTAMANTE ([phone])[facility])[address] [place] [address] Monocytes (Bld) [#/Vol] 0.6 10*3/uL Normal 0.0-0.9 [facility] Comment on above: Performed By: #### L [id number] ####Wastewater Manager: ALEXANDRA BUSTAMANTE ([phone])[facility])[address] [place] [address] Monocytes/100 WBC (Bld) 4.6 % Low 5.0-13.0 S [facility] Comment on above: Performed By: #### L [id number] ####Wastewater Manager: ALEXANDRA BUSTAMANTE ([phone])[facility] ([facility])[address] [place] [address] NEUTROPHILS ABSOLUTE 11.2 10*3/uL High 1.8-7.5 [facility] Comment on above: Performed By: #### L [id number] ####Wastewater Manager: ALEXANDRA BUSTAMANTE ([phone])[facility])[address] [place] [address] Neutrophils/100 WBC (Bld) 88.2 % High 38.0-82.0 [facility] Comment on above: Performed By: #### L [id number] ####Wastewater Manager: ALEXANDRA BUSTAMANTE ([phone])[facility])[address] [place] [address] NRBC 0.0 /100 WBCs Normal 0.0-2.0 [facility] Comment on above: Performed By: #### L [id number] ####Wastewater Manager: ALEXANDRA BUSTAMANTE ([phone])[facility] ([facility])[address] [place] [address] Platelet mean volume (Bld) [Entitic vol] 10.2 fL Normal 9.0-12.7 [facility] Comment on above: Performed By: #### L [id number] ####Wastewater Manager: ALEXANDRA BUSTAMANTE ([phone])[facility])[address] [place] [address] Platelets (Bld) [#/Vol] 260 10*3/uL Normal 140-440 [facility] Comment on above: Performed By: #### L [id number] ####Wastewater Manager: ALEXANDRA BUSTAMANTE ([phone])[facility] ([facility])[address] [place] [address] RBC (Bld) [#/Vol] 3.98 10*6/uL Normal 3.80-5.20 [facility] Comment on above: Performed By: #### L [id number] ####Wastewater Manager: ALEXANDRA BUSTAMANTE ([phone])[facility] ([facility])[address] [place] [address] WBC (Bld) [#/Vol] 12.7 10*3/uL High 3.6-10.7 [facility] Comment on above: Performed By: #### L [id number] ####Wastewater Manager: ALEXANDRA BUSTAMANTE ([phone])[facility] ([facility])[address] [place] [address] Laboratory - Chemistry and C hemistry - challengeon 06-19-2023 Glucose [Mass/Vol] 220 mg/dL High 70 - 100 mg/dL [facility] Glucose [Mass/Vol] 137 mg/dL High 70 - 100 mg/dL [facility] Glucose [Mass/Vol] 141 mg/dL High 70 - 100 mg/dL [facility] Glucose [Mass/Vol] 177 mg/dL High 70 - 100 mg/dL [facility] Laboratory - Coagulationon 0 06-19-2023 PT Coag (Bld) [Time] 11.3 s 9.0 - 1 2.0 s [facility] No Panel Informationon 06-18 Interpretation and review of laboratory results Abnormal [facility] th Performed by: [facility], [address] [place] [address] CLIA ID: [id number] [facility] Interpretation and review of laboratory results Abnormal [facility] th Performed by: [facility], [address] [place] [address] CLIA ID: [id number] [facility] Interpretation and review of laboratory results Abnormal [facility] th Performed by: [facility], [address] [place] [address] CLIA ID: [id number] [facility] Interpretation and review of laboratory results Abnormal [facility] th Performed by: [facility], [address] [place] [address] CLIA ID: [id number] [facility] Radiology Study observation (narrative) [facility] Radiology Study observation (narrative) [facility] Radiology Study observation (narrative) [facility] Radiology Study observation (narrative) [facility] PROTHROMBIN TIMEon INR Coag (PPP) [Relative time] 1.1 {INR} Normal 0.9-1.1 [facility] Comment on above: Result Comment: Reji [...] Myocardial Infarction Performed By: #### L [id number] ####Wastewater Manager: ALEXANDRA BUSTAMANTE ([phone])[facility] ([address] PT Coag (PPP) [Time] 11.3 s Normal 9.0-12.0 [facility] Comment on above: Performed By: #### L [id number] ####Wastewater Manager: ALEXANDRA BUSTAMANTE ([phone])[facility] ([facility])[address] [place] [address] PT Coag (Bld) [Time]on 06-18 INR Coag (PPP) [Relative time] 1.1 {INR} 0.9 - 1.1 [facility] Comment on above: Recommended Anticoag ulant [...] Interpretation and review of laboratory results Normal [facility] Progress Noteon 06-19-2023 Progress Note [facility] Anticoagulatio n Management Service (RIA) Inpatient Warfarin Consult HPI: Ezra Gonzalez is a 87 y.o. female admitted on 06/16/2023 for Closed displaced fracture of medial condyle of right humerus, initial encounter [S42.581U] History reviewed. No pertinent past medical history. [...] patient can be classified as high risk ([id number] = 8). 2. Monitor for s/s of bleeding and drug interactions. Will adjust dose accordingly 3. RIA will manage while inpatient Dc Lombardi, PharmD Candidate Jp BolanosD, [facility] RIA is available daily [phone] via Gema. If no response on Secpanel Chat then please page [phone]. Normal [facility] BASIC METABOLIC PANELon 05-30-2023 Anion gap [Moles/Vol] 10 mmol/L Normal 3-13 [facility] Comment on above: Performed By: #### L AB15 ####Wastewater Manager: ALEXANDRA BUSTAMANTE ([phone])[facility])[address] [place] [address] Calcium [Mass/Vol] 8.8 mg/dL Normal 8.4-10.4 [facility] Comment on above: Performed By: #### L AB15 ####Wastewater Manager: ALEXANDRA BUSTAMANTE ([phone])[facility] ([facility])[address] [place] [address] [place] Chloride [Moles/Vol] 98 mmol/L Normal 98-107 [facility] Comment on above: Performed By: #### L AB15 ####Wastewater Manager: ALEXANDRA BUSTAMANTE ([phone])[facility] ([facility])[address] [place] [address] [place] CO2 [Moles/Vol] 25 mmol/L Normal 22-30 [facility] Comment on above: Performed By: #### L AB15 ####Wastewater Manager: ALEXANDRA BUSTAMANTE ([phone])[facility])[address] [place] [address] Creatinine [Mass/Vol] 0.83 mg/dL Normal 0.52-1.04 [facility] Comment on above: Performed By: #### L AB15 ####Wastewater Manager: ALEXANDRA BUSTAMANTE ([phone])[facility])[address] [place] [address] GLOMERULAR FILTRATION RATE ML/MIN/1.73 SQ M.PREDICTED 68.3 mL/min/1.73m*2 Normal >60.0 [facility] Comment on above: Result Comment: Calc ulation based on the Chronic Kidney Disease Epidemiology Collaboration (CKD-EPI) equation refit without adjustment for race Performed By: #### L AB15 ####Wastewater Manager: ALEXANDRA BUSTAMANTE ([phone])[facility])[address] [place] [address] Glucose [Mass/Vol] 163 mg/dL Normal [facility] Comment on above: Performed By: #### L AB15 ####Wastewater Manager: ALEXANDRA BUSTAMANTE ([phone])[address] Order Comment: If no t done within the last 3 mos Performed By: #### L AB90 ####Wastewater Manager: ALEXANDRA BUSTAMANTE ([phone])[facility])[address] [place] [address] Potassium [Moles/Vol] 4.6 mmol/L Normal 3.5-5.1 [facility] Comment on above: Performed By: #### L AB15 ####Wastewater Manager: ALEXANDRA BUSTAMANTE ([phone])[facility])[address] [place] [address] Sodium [Moles/Vol] 133 mmol/L Low 135-145 [facility] Comment on above: Performed By: #### L AB15 ####Wastewater Manager: ALEXANDRA BUSTAMANTE ([phone])[facility] ([facility])[address] [place] [address] Urea nitrogen [Mass/Vol] 24 mg/dL High 7-17 [facility] Comment on above: Performed By: #### L AB15 ####Wastewater Manager: ALEXANDRA BUSTAMANTE ([phone])[facility] ([facility])[address] [place] [address] Basic metabolic 1998 panelon 06-18-2023 Anion gap [Moles/Vol] 10 mmol/L 3 - 13 mmol/L [facility] Calcium [Mass/Vol] 8.8 mg/dL 8.4 - 10. 4 mg/dL [facility] Chloride [Moles/Vol] 98 mmol/L 98 - 10 7 mmol/L [facility] CO2 [Moles/Vol] 25 mmol/L 22 - 30 mmol/L [facility] Creatinine [Mass/Vol] 0.83 mg/dL 0.52 - 1.04 mg/dL [facility] GFR/1.73 sq M.predicted MDRD (S/P/Bld) [Vol rate/Area] 68.3 mL/min/{1.73_m2} - PINF [facility] Comment on above: Calculation based on the Chronic Kidney Disease Epidemiology Collaboration (CKD-EPI) equation refit without adjustment for race Glucose [Mass/Vol] 163 mg/dL High 70 - 100 mg/dL [facility] Interpretation and review of laboratory results Abnormal [facility] Potassium [Moles/Vol] 4.6 mmol/L 3.5 - 5.1 mmol/L [facility] Sodium [Moles/Vol] 133 mmol/L Low 135 - 145 mmol/L [facility] Urea nitrogen [Mass/Vol] 24 mg/dL High 7 - 17 mg/dL [facility] CARECOORDon 06-18-2023 [facility] Care Managment Initial Assessment Date: 06/18/2023 Patient Name: Ezra Gonzalez : 1935 Patient Information Source of Information: Patient Cognition/Language: WFL - Within Functional Limits Permission given to speak with patient screening representative/caregi saira as indicated: No Confirmation of Payer with patient/family: Yes Payer Name: [facility] : No Confirmation of Primary Care Physician: [...] CONTINUE TO FOLLOW. Shikha Gray RN Normal [facility] CBC W Auto Differential pane l (Bld)Ordered By: Nir Meza on 06-18-2023 Basophils (Bld) [#/Vol] 0.1 10*3/uL 0.0 - 0.2 10*3/uL [facility] Basophils/100 WBC (Bld) 0.4 % 0.0 - 2.0 % [facility] Eosinophils (Bld) [#/Vol] 0.2 10*3/uL 0. 0 - 0.5 10*3/uL [facility] Eosinophils/100 WBC (Bld) 1.3 % 0.0 - 6.0 % [facility] Erythrocyte distribution width (RBC) [Ratio] 13.8 % 11.5 - 15.0 % [facility] Hematocrit (Bld) [Volume fraction] 44.1 % 35.0 - 47.0 % [facility] Hemoglobin (Bld) [Mass/Vol] 13.9 g/dL 11.7 - 16.0 g/dL [facility] Immature granulocytes (Bld) [#/Vol] 0.1 10*3/uL High NINF - 0.1 10*3/uL [facility] Immature granulocytes/100 WBC (Bld) 0.4 % 0.0 - 2.0 % [facility] Interpretation and review of laboratory results Abnormal [facility] th Lymphocytes (Bld) [#/Vol] 2.0 10*3/uL 1. 0 - 4.3 10*3/uL [facility] Lymphocytes/100 WBC (Bld) 13.1 % Low 15 .0 - 45.0 % [facility] MCH (RBC) [Entitic mass] 28.0 pg 26. 0 - 34.0 pg [facility] MCHC (RBC) [Mass/Vol] 31.5 % 30.5 - 36.0 % [facility] MCV (RBC) [Entitic vol] 88.9 fL 77.0 - 99.0 fL [facility] Monocytes (Bld) [#/Vol] 1.4 10*3/uL High 0.0 - 0.9 10*3/uL [facility] Monocytes/100 WBC (Bld) 9.0 % 5.0 - 13.0 % [facility] Neutrophils (Bld) [#/Vol] 11.8 10*3/uL High 1. 8 - 7.5 10*3/uL [facility] Neutrophils/100 WBC (Bld) 75.8 % 38 .0 - 82.0 % [facility] Nucleated RBC/100 WBC (Bld) [Ratio] 0.0 % [facility] Platelet mean volume (Bld) [Entitic vol] 10.1 fL 9.0 - 12.7 fL [facility] Platelets (Bld) [#/Vol] 375 10*3/uL 140 - 440 10*3/uL [facility] RBC (Bld) [#/Vol] 4.96 10*6/uL 3.80 - 5.2 0 10*6/uL [facility] WBC (Bld) [#/Vol] 15.5 10*3/uL High 3.6 - 10.7 10*3/uL [facility] CBC WITH AUTO DIFFERENTIALon 06-18-2023 Basophils (Bld) [#/Vol] 0.1 10*3/uL Normal 0.0-0.2 [facility] Comment on above: Performed By: #### L [id number] ####Wastewater Manager: ALEXANDRA BUSTAMANTE ([phone])[facility])[address] [place] [address] [place] Basophils/100 WBC (Bld) 0.4 % Normal 0.0-2.0 S [facility] Comment on above: Performed By: #### L [id number] ####Wastewater Manager: ALEXANDRA BUSTAMANTE ([phone])[facility])[address] [place] [address] Eosinophils (Bld) [#/Vol] 0.2 10*3/uL Normal 0.0-0.5 [facility] Comment on above: Performed By: #### L [id number] ####Wastewater Manager: ALEXANDRA BUSTAMANTE ([phone])[facility] ([facility])[address] [place] [address] Eosinophils/100 WBC (Bld) 1.3 % Normal 0.0-6.0 [facility] Comment on above: Performed By: #### L [id number] ####Wastewater Manager: ALEXANDRA BUSTAMANTE ([phone])[facility])[address] [place] [address] Erythrocyte distribution width (RBC) [Ratio] 13.8 % Normal 11.5-15.0 [facility] Comment on above: Performed By: #### L [id number] ####Wastewater Manager: ALEXANDRA BUSTAMANTE ([phone])[facility])[address] [place] [address] Hematocrit (Bld) [Volume fraction] 44.1 % Normal 35.0-47.0 [facility] Comment on above: Performed By: #### L [id number] ####Wastewater Manager: ALEXANDRA [phone])[facility])[address] [place] [address] Hemoglobin (Bld) [Mass/Vol] 13.9 g/dL Normal 11.7-16.0 [facility] Comment on above: Performed By: #### L [id number] ####Wastewater Manager: ALEXANDRA BUSTAMANTE ([phone])[facility])[address] [place] [address] IMMATURE GRANS % 0.4 % Normal 0.0-2.0 [facility] Comment on above: Performed By: #### L [id number] ####Wastewater Manager: ALEXANDRA BUSTAMANTE ([phone])[facility])[address] [place] [address] IMMATURE GRANS ABSOLUTE 0.1 10*3/uL High <0.1 [facility] Comment on above: Performed By: #### L [id number] ####Wastewater Manager: ALEXANDRA BUSTAMANTE ([phone])[facility])[address] [place] [address] Lymphocytes (Bld) [#/Vol] 2.0 10*3/uL Normal 1.0-4.3 [facility] Comment on above: Performed By: #### L [id number] ####Wastewater Manager: ALEXANDRA BUSTAMANTE ([phone])[address] Lymphocytes/100 WBC (Bld) 13.1 % Low 15.0-45.0 [facility] Comment on above: Performed By: #### L [id number] ####Wastewater Manager: ALEXANDRA BUSTAMANTE ([phone])[facility])[address] [place] [address] MCH (RBC) [Entitic mass] 28.0 pg Normal 26.0-34.0 [facility] Comment on above: Performed By: #### L [id number] ####Wastewater Manager: ALEXANDRA BUSTAMANTE ([phone])[facility])[address] [place] [address] MCHC 31.5 % Normal 30.5-36.0 [facility] Comment on above: Performed By: #### L [id number] ####Wastewater Manager: ALEXANDRA BUSTAMANTE ([phone])[facility])[address] [place] [address] MCV (RBC) [Entitic vol] 88.9 fL Normal 77.0-99.0 S [facility] Comment on above: Performed By: #### L [id number] ####Wastewater Manager: ALEXANDRA BUSTAMANTE ([phone])[facility] ([facility])[address] [place] [address] Monocytes (Bld) [#/Vol] 1.4 10*3/uL High 0.0-0.9 [facility] Comment on above: Performed By: #### L [id number] ####Wastewater Manager: ALEXANDRA BUSTAMANTE ([phone])[facility])[address] [place] [address] Monocytes/100 WBC (Bld) 9.0 % Normal 5.0-13.0 S [facility] Comment on above: Performed By: #### L [id number] ####Wastewater Manager: ALEXANDRA BUSTAMANTE ([phone])[facility])[address] [place] [address] NEUTROPHILS ABSOLUTE 11.8 10*3/uL High 1.8-7.5 [facility] Comment on above: Performed By: #### L [id number] ####Wastewater Manager: ALEXANDRA BUSTAMANTE ([phone])[facility])[address] [place] [address] Neutrophils/100 WBC (Bld) 75.8 % Normal 38.0-82.0 [facility] Comment on above: Performed By: #### L [id number] ####Wastewater Manager: ALEXANDRA BUSTAMANTE ([phone])[facility])[address] [place] [address] NRBC 0.0 /100 WBCs Normal 0.0-2.0 [facility] Comment on above: Performed By: #### L [id number] ####Wastewater Manager: ALEXANDRA BUSTAMANTE ([phone])[facility])[address] [place] [address] Platelet mean volume (Bld) [Entitic vol] 10.1 fL Normal 9.0-12.7 [facility] Comment on above: Performed By: #### L [id number] ####Wastewater Manager: ALEXANDRA BUSTAMANTE ([phone])[facility])[address] [place] [address] [place] Platelets (Bld) [#/Vol] 375 10*3/uL Normal 140-440 [facility] Comment on above: Performed By: #### L [id number] ####Wastewater Manager: ALEXANDRA BUSTAMANTE ([phone])[facility])[address] [place] [address] RBC (Bld) [#/Vol] 4.96 10*6/uL Normal 3.80-5.20 [facility] Comment on above: Performed By: #### L [id number] ####Wastewater Manager: ALEXANDRA BUSTAMANTE ([phone])[facility])[address] [place] [address] WBC (Bld) [#/Vol] 15.5 10*3/uL High 3.6-10.7 [facility] Comment on above: Performed By: #### L [id number] ####Wastewater Manager: ALEXANDRA BUSTAMANTE ([phone])[facility])[address] [place] [address] HEMOGLOBIN A1Con 06-18-2023 HbA1c (Bld) [Mass fraction] 7.3 % High <5.7 [facility] Comment on above: Order Comment: If no t done within the last 3 mos Result Comment: Norm al less than 5.7% Prediabetes 5.7% to 6.4% Diabetes 6.5% or higher --HgbA1C levels may not be accurate in patients who have renal disease, received recent blood transfusions, are anemic, or who have dyshemoglobinemia. Performed By: #### L AB90 ####Wastewater Manager: ALEXANDRA BUSTAMANTE ([phone])[facility] ([facility])[address] IDNon 06-18-2023 IDN The patient is Moderately Stable - Low risk of patient condition declining or worsening The patient's goals for the shift include rest and pain control The clinical goals for the shift include rest and pain control Normal [facility] Laboratory - Chemistry and C hemistry - challengeon 06-18-2023 Glucose [Mass/Vol] 189 mg/dL High 70 - 100 mg/dL [facility] Procalcitonin [Mass/Vol] 0.06 ng/mL 0.0 0 - 0.09 ng/mL [facility] Glucose [Mass/Vol] 121 mg/dL High 70 - 100 mg/dL [facility] Average glucose Estimated from glycated hemoglobin (Bld) [Mass/Vol] 163 mg/dL [facility] - Hematology and Cell countson 06-18-2023 HbA1c (Bld) [Mass fraction] 7.3 % High NINF - 5.7 % [facility] Comment on above: Normal less than 5.7 % Prediabetes 5.7% to 6.4% Diabetes 6.5% or higher --HgbA1C levels may not be accurate in patients who have renal disease, received recent blood transfusions, are anemic, or who have dyshemoglobinemia. No Panel Informationon 06-17 Interpretation and review of laboratory results Abnormal [facility] Performed by: [facility], [address] [place] [address] CLIA ID: [id number] [facility] There is no interpretation needed for this exam. IMAGING Interpretation and review of laboratory results Abnormal [facility] Performed by: [facility], [address] [place] [id number] CLIA ID: [id number] [facility] Interpretation and review of laboratory results Abnormal [facility] Radiology Study observation (narrative) Trina iasbel Radiology Study observation (narrative) [facility]-18-2023 Nursing Note Pt states no need to contact family. RN on floor states she will call pt's son,. Normal [facility] Nursing Note Patients wallet and watch locked up with security. OR notified patient states she has latex allergy Patients purse and glasses taken to pacu Normal [facility] Op Noteon 06[facility]18-2023 [facility] [address] [facility] [id number] Dept: [phone] Loc: [phone] Operative Report Patient Name: Ezra Gonzalez Date of : 1935 Date of Surgery: 06/18/23 Pre-operative diagnosis: Right intra-articular distal humerus fracture Post-operative diagnosis: Same Procedure(s): Open reduction internal fixation of right intra-articular distal humerus fracture Surgeon: Benitez Givens M.D. Equipment Engineer(s): Lexa Aparicio M.D. Anesthesia: General and [...] Lexa Aparicio MD at 06/18/23, 7:20 PM [facility] Op Note Date: 06/16/2023 - 06/18/2023 Location: [facility] OR Name: Ezra Gonzalez, : 1935, Diagnosis Pre-op Diagnosis * Closed displaced fracture of medial condyle of right humerus, initial encounter [S42.279K] Post-op Diagnosis * Closed displaced fracture of medial condyle of right humerus, initial encounter [S42.759K] Procedures OPEN REDUCTION INTERNAL FIXATION RIGHT DISTAL HUMERUS 72076 - SC OPTX HUMERAL SHFT FX W/PLATE/SCREWS W/WOCERCLAGE Surgeons * Benitez Givens - Primary Procedure Summary Anesthesia: * No anesthesia type entered * ASA: III Estimated Blood Loss: Minimal Drains: * None in log * Staff: Clinical Training Specialist: Vivian Herrera RN Scrub Person: Linda Alvarez [...] in 2 weeks -Ortho to follow. Normal [facility] PROCALCITONIN TESTon 024 PROCALCITONIN 0.06 ng/mL Normal 0.00-0.09 [facility] Comment on above: Result Comment: ORDE R COMMENTS: PCT <0.50 = Low risk of severe sepsis and/or septic shock. PCT >2.00 = High risk of severe sepsis and/or septic shock. Performed By: #### L [id number] ####Wastewater Manager: ALEXANDRA BUSTAMANTE ([phone])[facility] ([facility] Procalcitonin [Mass/Vol]on 0 06-18-2023 Interpretation and review of laboratory results Normal [facility] PCT <0.50 = Low risk of severe sepsis and/or septic shock. PCT >2.00 = High risk of severe sepsis and/or septic shock. [facility] Progress Noteon 06-18-2023 Progress Note Nutrition rescreen completed. Chart reviewed. Patient to be monitored and followed by the diet cinetechnician. NICA Watts [facility] Progress Note OCCUPATIONAL THERAPY [facility] Name/MRN: Ezra Gonzalez ([id number]) Date: 06/18/2023 OT eval and treat order received. Patient chart reviewed. Per Ortho note, "Plan for ORIF od R distal humerus." Will hold evaluation till after surgery. Louisa Cespedes, OT Normal [facility] Progress Note PHYSICAL THERAPY [facility] Name/MRN: Ezra Gonzalez ([id number]) Date: 06/18/2023 PT orders received and chart reviewed. Per ortho note, "Plan for ORIF R distal humerus". Will hold and attempt following surgery. Maryanne Neumann, PT [facility] ECG 12-LEADon 06-17-2023 ECG 12-LEAD IMPRESSION: Atrial fibrillation Probable left ventricular hypertrophy No previous ECG for comparison Electronically Signed On 06-17-2023 06:39:12 EDT by Thong Francois [facility] ED Nursing Noteon 06-17-2023 ED Nursing Note Patient resting in bed at this time, equal unlabored respirations noted and no acute distress, call león within reach Di Reyna RN 06/17/23 1153 [facility] ED Nursing Note Pt O2 desaturating t o mid 80s after receiving dilaudid IV. Pt placed on 2L NC and immediately back up to 95%. notified Alia Foster RN 06/17/23 1031 [facility] ED Nursing Note Pt upset [...] US IV line. Juanjo Pringle RN 06/16/23 Normal [facility] Laboratory - Chemistry and C hemistry - challengeon 06-17-2023 Glucose [Mass/Vol] 137 mg/dL High 70 - 100 mg/dL [facility] Laboratory - Coagulationon 0 06-17-2023 PT Coag (Bld) [Time] 14.5 s High 9.0 - 1 2.0 s [facility] No Panel Informationon 06-16 Interpretation and review of laboratory results Abnormal [facility] th Performed by: [facility], [address] [place] [address] CLIA ID: [id number] [facility] Atrial fibrillation Probable left ventricular hypertrophy No previous ECG for comparison Electronically Signed On 06-17-2023 06:39:12 EDT by Thong Arvizu D O - 06/17/2023 IMPRESSION: Atrial fibrillation Probable left ventricular hypertrophy No previous ECG for comparison Electronically Signed On 06-17-2023 06:39:12 EDT by Thong Francois [facility] Radiology Study observation (narrative) [facility] No Panel InformationOrdered By: Thong Francois on 06-17-2023 P [place] 0 degrees [facility] Work Phone: SC Interval 0 ms [facility] Work Phone: QRS [place] -24 degrees [facility] Work Phone: QRSD Interval 103 ms [facility] h Work Phone: QT Interval 382 ms [facility] Work Phone: QTC Interval 442 ms [facility] Work Phone: T Wave [place] 31 degrees [facility] Work Phone: [facility] Work Phone: Nursing Noteon 06-17-2023 Nursing Note Patient home medication list updated, provider made aware. Normal [facility] PROTHROMBIN TIMEon INR Coag (PPP) [Relative time] 1.4 {INR} High 0.9-1.1 [facility] Comment on above: Result Comment: Reji [...] Infarction Performed By: #### L [id number] #### Wastewater Manager: ALEXANDRA BUSTAMANTE ([phone]) [facility] ([facility]) [address] [place] [address] PT Coag (PPP) [Time] 14.5 s High 9.0-12.0 [facility] Comment on above: Performed By: #### L [id number] #### Wastewater Manager: ALEXANDRA BUSTAMANTE ([phone]) [facility] ([facility]) [address] [place] [address] PT Coag (Bld) [Time]on 06-16 INR Coag (PPP) [Relative time] 1.4 {INR} High 0.9 - 1.1 [facility] Comment on above: Recommended Anticoag ulant [...] Interpretation and review of laboratory results Abnormal [facility] Progress Noteon 06-17-2023 Progress Note Due to OR availability, case cancelled for today. Moved to tomorrow, 06/17. Ok for diet today. NPO @OK. Keep splint C/D/I. Evette Viera MD Orthopaedic Surgery, PGY-5 [phone] Normal [facility] Vital signsOrdered By: Neeta Francois on 06-17-2023 Heart rate 80 /min bpm [place] Work Phone: XR Chest Single viewon 06-16 No acute cardiopulmonary process identified. Other chronic findings as discussed. 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 [facility] Houston Chau MD - 06/17/2023 Patient [...] Electronically Signed Date/Time: 06/17/2023 12:44 AM EDT [facility] Radiology Study observation (narrative) [facility] alth XR Chest Single viewOrdered By: Houston Chau on 06-17-2023 [facility] Work Phone: Absolute lymphocyte countOrd ered By: Lali Pimentel on 06-16-2023 Lymphocytes Auto (Unsp spec) [#/Vol] 3.86 10*3/uL 0.83-4.51 [facility] Automated lymphocyte count a s percentage of total leukocytesOrdered By: Lali Pimentel on 06-16-2023 Lymphocytes/100 WBC Auto (Unsp spec) 23.0 % 19-41 [facility] BASIC METABOLIC PANELon 05-29 Anion gap [Moles/Vol] 7 mmol/L Normal 3-13 [facility] Comment on above: Performed By: #### L [id number] ####Wastewater Manager: ALEXANDRA BUSTAMANTE ([phone])[facility] ([facility])[address] [place] [address] Calcium [Mass/Vol] 8.6 mg/dL Normal 8.4-10.4 [facility] Comment on above: Performed By: #### L [id number] ####Wastewater Manager: ALEXANDRA BUSTAMANTE ([phone])[facility] ([facility])[address] [place] [address] [place] Chloride [Moles/Vol] 99 mmol/L Normal 98-107 [facility] Comment on above: Performed By: #### L [id number] ####Wastewater Manager: ALEXANDRA BUSTAMANTE ([phone])[facility] ([facility])[address] [place] [address] [place] CO2 [Moles/Vol] 29 mmol/L Normal 22-30 [facility] Comment on above: Performed By: #### L [id number] ####Wastewater Manager: ALEXANDRA BUSTAMANTE ([phone])[facility])[address] [place] [address] Creatinine [Mass/Vol] 0.79 mg/dL Normal 0.52-1.04 [facility] Comment on above: Performed By: #### L [id number] ####Wastewater Manager: ALEXANDRA BUSTAMANTE ([phone])[facility] ([facility])[address] [place] [address] [place] GLOMERULAR FILTRATION RATE ML/MIN/1.73 SQ M.PREDICTED 72.5 mL/min/1.73m*2 Normal >60.0 [facility] Comment on above: Result Comment: Calc ulation based on the Chronic Kidney Disease Epidemiology Collaboration (CKD-EPI) equation refit without adjustment for race Performed By: #### L [id number] ####Wastewater Manager: ALEXANDRA BUSTAMANTE ([phone])[facility] ([facility])[address] [place] [address] Glucose [Mass/Vol] 186 mg/dL High 70-100 [facility] Comment on above: Performed By: #### L [id number] ####Wastewater Manager: ALEXANDRA BUSTAMANTE ([phone])[facility])[address] [place] [address] Potassium [Moles/Vol] 4.5 mmol/L Normal 3.5-5.1 [facility] Comment on above: Performed By: #### L [id number] ####Wastewater Manager: ALEXANDRA BUSTAMANTE ([phone])[facility])[address] [place] [address] [place] Sodium [Moles/Vol] 136 mmol/L Normal 135-145 [facility] Comment on above: Performed By: #### L [id number] ####Wastewater Manager: ALEXANDRA BUSTAMANTE ([phone])[facility])[address] [place] [address] [place] Urea nitrogen [Mass/Vol] 26 mg/dL High 7-17 [facility] Comment on above: Performed By: #### L [id number] ####Wastewater Manager: ALEXANDRA BUSTAMANTE ([phone])[facility] ([facility])[address] [place] [address] BLOOD TYPE AND SCREEN GELon 06-16-2023 ABO GROUPING A Normal [facility] Comment on above: Performed By: #### L [id number] ####Wastewater Manager: ALEXANDRA BUSTAMANTE ([phone])[facility] ([facility])[address] [place] [address] RH TYPE IN BLOOD Positive Normal [facility] Comment on above: Performed By: #### L [id number] ####Wastewater Manager: ALEXANDRA BUSTAMANTE ([phone])[facility] ([facility])[address] [place] [address] Basic metabolic 1998 panelon 06-16-2023 Anion gap [Moles/Vol] 7 mmol/L 3 - 13 mmol/L [facility] Calcium [Mass/Vol] 8.6 mg/dL 8.4 - 10. 4 mg/dL [facility] Chloride [Moles/Vol] 99 mmol/L 98 - 10 7 mmol/L [facility] CO2 [Moles/Vol] 29 mmol/L 22 - 30 mmol/L [facility] Creatinine [Mass/Vol] 0.79 mg/dL 0.52 - 1.04 mg/dL [facility] GFR/1.73 sq M.predicted MDRD (S/P/Bld) [Vol rate/Area] 72.5 mL/min/{1.73_m2} - PINF [facility] Comment on above: Calculation based on the Chronic Kidney Disease Epidemiology Collaboration (CKD-EPI) equation refit without adjustment for race Glucose [Mass/Vol] 186 mg/dL High 70 - 100 mg/dL [facility] Interpretation and review of laboratory results Abnormal [facility] Potassium [Moles/Vol] 4.5 mmol/L 3.5 - 5.1 mmol/L [facility] Sodium [Moles/Vol] 136 mmol/L 135 - 145 mmol/L [facility] Urea nitrogen [Mass/Vol] 26 mg/dL High 7 - 17 mg/dL [facility] Basophil percentageOrdered B y: Lali Pimentel on 06-16-2023 Basophils/100 WBC (Bld) 0.4 % 0-1 [facility] Chloride [Moles/Vol] 104 mmol/L 98-107 [facility] Eosinophils/100 WBC (Bld) 1.3 % 0-5 [facility] Glucose [Mass/Vol] 191 mg/dL 74-106 [facility] Comment on above: Fasting Glucose resu lt greater than or equal to 126 mg/dL suggests DIABETES MELLITUS per A.D.A. criteria. Hemoglobin (Bld) [Mass/Vol] 13.6 g/dL 12.0-15.0 [facility] Monocytes/100 WBC (Bld) 7.0 % 0-10 [facility] Neutrophils (Bld) [#/Vol] 11.4 10*3/uL 2.0-7.7 [facility] Neutrophils/100 WBC (Bld) 67.8 % 47-70 [facility] Potassium [Moles/Vol] 3.4 mmol/L 3.5-5.1 [facility] Sodium [Moles/Vol] 140 mmol/L 136-145 [facility] WBC (Bld) [#/Vol] 16.8 10*3/uL 4.4-11.0 [facility] Blood type and Crossmatch pa ro (Bld)on 06-16-2023 Blood group antibody screen GEL Ql Negative [facility] CBC W Auto Differential pane l (Bld)on 06-16-2023 Basophils (Bld) [#/Vol] 0.0 10*3/uL 0.0 - 0.2 10*3/uL [facility] Basophils/100 WBC (Bld) 0.2 % 0.0 - 2.0 % [facility] Eosinophils (Bld) [#/Vol] 0.0 10*3/uL 0. 0 - 0.5 10*3/uL [facility] Eosinophils/100 WBC (Bld) 0.0 % 0.0 - 6.0 % [facility] Erythrocyte distribution width (RBC) [Ratio] 13.6 % 11.5 - 15.0 % [facility] Hematocrit (Bld) [Volume fraction] 38.9 % 35.0 - 47.0 % [facility] Hemoglobin (Bld) [Mass/Vol] 12.8 g/dL 11.7 - 16.0 g/dL [facility] Immature granulocytes (Bld) [#/Vol] 0.1 10*3/uL High NINF - 0.1 10*3/uL [facility] Immature granulocytes/100 WBC (Bld) 0.6 % 0.0 - 2.0 % [facility] Interpretation and review of laboratory results Abnormal [facility] th Lymphocytes (Bld) [#/Vol] 1.1 10*3/uL 1. 0 - 4.3 10*3/uL [facility] Lymphocytes/100 WBC (Bld) 6.5 % Low 15 .0 - 45.0 % [facility] MCH (RBC) [Entitic mass] 29.1 pg 26. 0 - 34.0 pg [facility] MCHC (RBC) [Mass/Vol] 32.9 % 30.5 - 36.0 % [facility] MCV (RBC) [Entitic vol] 88.4 fL 77.0 - 99.0 fL [facility] Monocytes (Bld) [#/Vol] 0.7 10*3/uL 0.0 - 0.9 10*3/uL [facility] Monocytes/100 WBC (Bld) 4.4 % Low 5.0 - 13.0 % [facility] Neutrophils (Bld) [#/Vol] 14.3 10*3/uL High 1. 8 - 7.5 10*3/uL [facility] Neutrophils/100 WBC (Bld) 88.3 % High 38 .0 - 82.0 % [facility] Nucleated RBC/100 WBC (Bld) [Ratio] 0.0 % [facility] Platelet mean volume (Bld) [Entitic vol] 9.9 fL 9.0 - 12.7 fL [facility] Platelets (Bld) [#/Vol] 357 10*3/uL 140 - 440 10*3/uL [facility] RBC (Bld) [#/Vol] 4.40 10*6/uL 3.80 - 5.2 0 10*6/uL [facility] WBC (Bld) [#/Vol] 16.2 10*3/uL High 3.6 - 10.7 10*3/uL [facility] CBC WITH AUTO DIFFERENTIALon 06-16-2023 Basophils (Bld) [#/Vol] 0.0 10*3/uL Normal 0.0-0.2 [facility] Comment on above: Performed By: #### L [id number] ####Wastewater Manager: ALEXANDRA BUSTAMANTE ([phone])[facility])[address] [place] [address] Basophils/100 WBC (Bld) 0.2 % Normal 0.0-2.0 S [facility] Comment on above: Performed By: #### L [id number] ####Wastewater Manager: ALEXANDRA BUSTAMANTE ([phone])[facility])[address] [place] [address] Eosinophils (Bld) [#/Vol] 0.0 10*3/uL Normal 0.0-0.5 [facility] Comment on above: Performed By: #### L [id number] ####Wastewater Manager: ALEXANDRA BUSTAMANTE ([phone])[facility])[address] [place] [address] Eosinophils/100 WBC (Bld) 0.0 % Normal 0.0-6.0 [facility] Comment on above: Performed By: #### L [id number] ####Wastewater Manager: ALEXANDRA BUSTAMANTE ([phone])[address] Erythrocyte distribution width (RBC) [Ratio] 13.6 % Normal 11.5-15.0 [facility] Comment on above: Performed By: #### L [id number] ####Wastewater Manager: ALEXANDRA BUSTAMANTE ([phone])[facility])[address] [place] [address] Hematocrit (Bld) [Volume fraction] 38.9 % Normal 35.0-47.0 [facility] Comment on above: Performed By: #### L [id number] ####Wastewater Manager: ALEXANDRA BUSTAMANTE ([phone])[address] Hemoglobin (Bld) [Mass/Vol] 12.8 g/dL Normal 11.7-16.0 [facility] Comment on above: Performed By: #### L [id number] ####Wastewater Manager: ALEXANDRA BUSTAMANTE ([phone])[facility])[address] [place] [address] IMMATURE GRANS % 0.6 % Normal 0.0-2.0 [facility] Comment on above: Performed By: #### L [id number] ####Wastewater Manager: ALEXANDRA BUSTAMANTE ([phone])[facility])[address] [place] [address] IMMATURE GRANS ABSOLUTE 0.1 10*3/uL High <0.1 [facility] Comment on above: Performed By: #### L [id number] ####Wastewater Manager: ALEXANDRA BUSTAMANTE ([phone])[facility])[address] [place] [address] Lymphocytes (Bld) [#/Vol] 1.1 10*3/uL Normal 1.0-4.3 [facility] Comment on above: Performed By: #### L [id number] ####Wastewater Manager: ALEXANDRA BUSTAMANTE ([phone])[facility])[address] [place] [address] Lymphocytes/100 WBC (Bld) 6.5 % Low 15.0-45.0 [facility] Comment on above: Performed By: #### L [id number] ####Wastewater Manager: ALEXANDRA BUSTAMANTE ([phone])[facility])[address] [place] [address] MCH (RBC) [Entitic mass] 29.1 pg Normal 26.0-34.0 [facility] Comment on above: Performed By: #### L [id number] ####Wastewater Manager: ALEXANDRA BUSTAMANTE ([phone])[facility])[address] [place] [address] MCHC 32.9 % Normal 30.5-36.0 [facility] Comment on above: Performed By: #### L [id number] ####Wastewater Manager: ALEXANDRA BUSTAMANTE ([phone])[facility])[address] [place] [address] [place] MCV (RBC) [Entitic vol] 88.4 fL Normal 77.0-99.0 S [facility] Comment on above: Performed By: #### L [id number] ####Wastewater Manager: ALEXANDRA BUSTAMANTE ([phone])[facility] ([facility])[address] [place] [address] Monocytes (Bld) [#/Vol] 0.7 10*3/uL Normal 0.0-0.9 [facility] Comment on above: Performed By: #### L [id number] ####Wastewater Manager: ALEXANDRA BUSTAMANTE ([phone])[facility] ([facility])[address] [place] [address] Monocytes/100 WBC (Bld) 4.4 % Low 5.0-13.0 S [facility] Comment on above: Performed By: #### L [id number] ####Wastewater Manager: ALEXANDRA BUSTAMANTE ([phone])[facility] ([facility])[address] [place] [address] NEUTROPHILS ABSOLUTE 14.3 10*3/uL High 1.8-7.5 [facility] Comment on above: Performed By: #### L [id number] ####Wastewater Manager: ALEXANDRA BUSTAMANTE ([phone])[facility] ([facility])[address] [place] [address] Neutrophils/100 WBC (Bld) 88.3 % High 38.0-82.0 [facility] Comment on above: Performed By: #### L [id number] ####Wastewater Manager: ALEXANDRA BUSTAMANTE ([phone])[facility] ([facility])[address] [place] [address] [place] NRBC 0.0 /100 WBCs Normal 0.0-2.0 [facility] Comment on above: Performed By: #### L [id number] ####Wastewater Manager: ALEXANDRA BUSTAMANTE ([phone])[facility] ([facility])[address] [place] [address] Platelet mean volume (Bld) [Entitic vol] 9.9 fL Normal 9.0-12.7 [facility] Comment on above: Performed By: #### L [id number] ####Wastewater Manager: ALEXANDRA BUSTAMANTE ([phone])[facility])[address] [place] [address] Platelets (Bld) [#/Vol] 357 10*3/uL Normal 140-440 [facility] Comment on above: Performed By: #### L [id number] ####Wastewater Manager: ALEXANDRA BUSTAMANTE ([phone])[facility] ([facility])[address] [place] [address] RBC (Bld) [#/Vol] 4.40 10*6/uL Normal 3.80-5.20 [facility] Comment on above: Performed By: #### L [id number] ####Wastewater Manager: ALEXANDRA BUSTAMANTE ([phone])[facility])[address] [place] [address] WBC (Bld) [#/Vol] 16.2 10*3/uL High 3.6-10.7 [facility] Comment on above: Performed By: #### L [id number] ####Wastewater Manager: ALEXANDRA BUSTAMANTE ([phone])[facility])[address] [place] [address] CT ELBOW RIGHT WO IV CONTRAS Ton 06-16-2023 CT ELBOW RIGHT WO IV CONTRAST [facility] 1935 [id number] Exam Date/Time: 06/16/2023 18:01 Procedure: CT ELBOW [...] right humerus, initial encounter Normal [facility] CT Elbow - right WO contrast on 06-16-2023 Impression: Extensively comminuted supracondylar humerus fracture. The fracture has multiple foci of articular extension to the lateral and central aspect of the condyle. Report Dictated on Electronically Signed By: Pastor Francisco MD Electronically Signed Date/Time: 06/16/2023 6:13 PM T [facility] Patient Name: [facility]Z [facility] 1935 [id number] Exam Date/Time: 06/16/2023 18:01 Procedure: CT ELBOW [...] process fracture. Joint effusion. Decreased osseous mineralization. [facility] Pastor Francisco MD - 06/16/2023 [...] Electronically Signed Date/Time: 06/16/2023 6:13 PM EDT [facility] Radiology Study observation (narrative) [facility] chalo Consulton 06-16-2023 Consult Ortho Consult Patient: Ezra Gonzalez Date of : 1935 Acct: [id number] PCP: No primary care provider on file. Date of Admission: 06/16/2023 Date of Service: Pt seen/examined on 06/16/2023 Chief Complaint: right distal humerus fracture History Of Present Illness: This is a 87 y.o. right hand dominant female who presents with a right distal humerus fracture after a fall at home. Patient originally presented to [facility] where she was splinted and transferred to [facility] ED for ortho eval. Patient denies numbness, tingling, or weakness. Denies pain elsewhere and denies head trauma or LOC. 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 Patient has prior ortho surgery history of bilateral TKAs and right shoulder surgery, left carpal tunnel release, all at [facility]. Denies alcohol, tobacco, drug use. Patient [...] "RH", "LAB (more content not included)... Normal [facility] Determination of erythrocyte mean corpuscular volume (MCV)Ordered By: Lali Pimentel on 06-16-2023 MCV (RBC) [Entitic vol] 90.3 fL 81-99 [facility] ED Provider Noteon ED Provider Note Emergency Department Encounter [facility] EMERGENCY DEPT Patient: Ezra Gonzalez : [...] for clarification.) Sae Conde MD Acute Care [facility] Sae Conde MD 06/16/23 1626 [facility] ED Provider Note EMERGENCY DEPARTMENT [...] injury anywhere else. Patient was evaluated at [facility] emergency department prior to arrival and was noted to have a distal humerus fracture. Patient was transferred to [facility] ED for orthopedic consultation. Patient denies [...] (more content not included)... Normal [facility] Erythrocyte distribution wid th ratioOrdered By: Lali Pimentel on 06-16-2023 Erythrocyte distribution width (RBC) [Ratio] 13.3 % 11.6-14.6 [facility] Erythrocyte distribution wid th standard deviationOrdered By: Lail Pimentel on 06-16-2023 Erythrocyte distribution width (RBC) [Entitic vol] 43.9 fL 35.1-43.9 [facility] Hematocrit Auto (Bld) [Volum e fraction]Ordered By: Lali Pimentel on 06-16-2023 Hematocrit (Bld) [Volume fraction] 42.6 % 37-47 [facility] Immature granulocytes/100 WB C Auto (Bld)Ordered By: Lali Pimentel on 06-16-2023 Immature granulocytes/100 WBC (Bld) 0.500 % 0.0-0.9 [facility] Comment on above: IG% - Immature Granu locytes (promyelocytes, myelocytes and metamyelocytes) > 1% indicates that a LEFT SHIFT is Present. Laboratory - Blood bankon ABO group Nom (Bld) A [facility] D Ag Ql (RBC) Positive [facility] Laboratory - Chemistry and C hemistry - challengeOrdered By: Lali Pimentel on 06-16-2023 CO2 [Moles/Vol] 31.0 mmol/L 21.0-32.0 [facility] Urea nitrogen/Creatinine [Mass ratio] 20.9 mg/mg 10-20 [facility] Laboratory - Coagulationon 0 06-16-2023 PT Coag (Bld) [Time] 22.3 s High 9.0 - 1 2.0 s [facility] Laboratory - CoagulationOrde red By: Lali Pimentel on 06-16-2023 INR Coag (Bld) [Relative time] 2.2 {INR} [facility] PT Coag (PPP) [Time] 24.3 s 11.7-14.9 [facility] Laboratory - Hematology and Cell countsOrdered By: Lali Pimentel on 06-16-2023 MCH (RBC) [Entitic mass] 28.8 pg 27.0-32.0 [facility] MCHC (RBC) [Mass/Vol] 31.9 g/dL 32-36 [facility] Nucleated RBC/100 WBC (Bld) [Ratio] 0 % 0-5 [facility] Platelet mean volume (Bld) [Entitic vol] 9.9 fL 6.2-12.0 [facility] Platelets (Bld) [#/Vol] 414 10*3/uL 150-450 [facility] No Panel Informationon 06-15 [facility] No Panel InformationOrdered By: Lali Pimentel on 06-16-2023 Estimated Creatinine Clearance Calc 35.56 ml/min [facility] Estimated GFR (MDRD) Amer 57 mL/min >60 [facility] Comment on above: GFR Calc Estimated GFR (MDRD) Non-Af Amer 47 mL/min >60 [facility] Comment on above: Non- GFR Calc PROTHROMBIN TIMEon INR Coag (PPP) [Relative time] 2.2 {INR} High 0.9-1.1 [facility] Comment on above: Result Comment: Reji [...] Myocardial Infarction Performed By: #### L [id number] ####Wastewater Manager: ALEXANDRA BUSTAMANTE ([phone])[address] PT Coag (PPP) [Time] 22.3 s High 9.0-12.0 [facility] Comment on above: Performed By: #### Akanksha [id number] ####Wastewater Manager: ALEXANDRA BUSTAMANTE ([phone])[address] PT Coag (Bld) [Time]on 06-15 INR Coag (PPP) [Relative time] 2.2 {INR} High 0.9 - 1.1 [facility] Comment on above: Recommended Anticoag ulant [...] 06-16-2023 RBC (Bld) [#/Vol] 4.72 10*6/uL 4.2-5.4 [facility] Serum or plasma calcium viktoria urement (mass/volume)Ordered By: Lali Pimentel on 06-16-2023 Calcium [Mass/Vol] 8.8 mg/dL 8.5-10.1 [facility] Serum or plasma creatinine m easurement (mass/volume)Ordered By: Lali Pimentel on 06-16-2023 Creatinine [Mass/Vol] 1.15 mg/dL 0.55-1.02 [facility] Comment on above: The validity of the calculated GFR & GFRAA in patients over 70 years has not been determined. Clinical correlation is essential. Serum or plasma urea nitroge n measurement (mass/volume)Ordered By: Lali Pimentel on 06-16-2023 Urea nitrogen [Mass/Vol] 24 mg/dL - [facility] Thin prep Papanicolaou smear with manual screeningOrdered By: Lali Pimentel on 06-16-2023 Thin prep Papanicolaou smear with manual screening 5 5- [facility] XR Elbow - right 2 Viewson 0 06-16-2023 Patient Name: EZRA GONZALEZ : 1935 [facility]#: [id number] Exam Date/Time: 06/16/2023 15:20 Procedure: XR ELBOW [...] Electronically Signed Date/Time: 06/16/2023 3:38 PM EDT [facility] Sae Dudley MD - 06/16/2023 [facility] Name[facility] 1935 [id number] Exam Date/Time: 06/16/2023 15:20 Procedure: XR ELBOW [...] Electronically Signed Date/Time: 06/16/2023 3:38 PM T [facility] Radiology Study observation (narrative) [facility]th XR Elbow - right 2 ViewsOrde red By: Sae Dudley on 06-16-2023 [facility] Work Phone: XR Elbow - right [...] Electronically Signed Date/Time: 06/16/2023 3:24 PM EDT [facility] Patient Name: EZRA GONZALEZ : 1935 Exam Date/Time: 06/16/2023 14:30 Procedure: XR ELBOW 3+ VIEWS RIGHT Ordering Provider: TENORIO KASSIDY Reason For Exam: comminuted slightly displaced supracondylar fx of distal humerus with extension to the medial epicondyle - seen at [place] cannot see imaging Examination: Right elbow Clinical Indication: Pain Comparison: None [facility] Pastor Francisco MD - 06/16/2023 Patient Name: EZRA GONZALEZ : 1935 Exam Date/Time: 06/16/2023 14:30 Procedure: XR ELBOW 3+ VIEWS RIGHT Ordering Provider: TENORIO KASSIDY Reason For Exam: comminuted slightly displaced supracondylar fx of distal humerus with extension to the medial epicondyle - seen at [place] cannot see imaging Examination: Right elbow Clinical [...] Electronically Signed Date/Time: 06/16/2023 3:24 PM EDT [facility] Radiology Study observation (narrative) [facility] XR Elbow - right 3 ViewsOrde red By: Pastor Francisco on 06-16-2023 [facility] Work Phone: XR Shoulder - right [...] Electronically Signed Date/Time: 06/16/2023 3:30 PM EDT [facility] Patient Name: EZRA GONZALEZ : [...] glenohumeral joint. Acromioclavicular joint appears grossly intact. [facility] Reji Lemus MD - 06/16/2023 [facility] Name: [facility] 1935 [id number] Exam Date/Time: 06/16/2023 15:20 Procedure: XR SHOULDER [...] Electronically Signed Date/Time: 06/16/2023 3:30 PM EDT [facility] Radiology Study observation (narrative) [facility] XR Shoulder - right 2 ViewsO rdered By: Reji Lemus on 06-16-2023 [facility] Work Phone: Capillary blood internationa l normalized ratio (INR)Ordered By: Alexandra Hagen on 05-30-2023 INR Coag (BldC) [Relative time] 1.7 [facility] Comment on above: Critical Value > 4.0 Whole blood prothrombin time Ordered By: Alexandra Hagen on 05-30-2023 PT Coag (Bld) [Time] 18.0 s 11.7-14.9 [facility] Absolute lymphocyte countOrd ered By: Alexandra Hagen on 05-12-2023 Lymphocytes Auto (Unsp spec) [#/Vol] 1.60 10*3/uL 0.83-4.51 [facility] Automated lymphocyte count a s percentage of total leukocytesOrdered By: Alexandra Hagen on 05-12-2023 Lymphocytes/100 WBC Auto (Unsp spec) 20.2 % 19-41 [facility] Basophil percentageOrdered B y: Alexandra Hagen on 05-12-2023 Basophils/100 WBC (Bld) 0.5 % 0-1 [facility] Chloride [Moles/Vol] 109 mmol/L 98-107 [facility] Eosinophils/100 WBC (Bld) 3.7 % 0-5 [facility] Glucose [Mass/Vol] 206 mg/dL 74-106 [facility] Comment on above: Glucose result great er than or equal to 200 mg/dLsuggests DIABETES MELLITUS per A.D.A. criteria. Hemoglobin (Bld) [Mass/Vol] 13.1 g/dL 12.0-15.0 [facility] Monocytes/100 WBC (Bld) 7.8 % 0-10 [facility] Neutrophils (Bld) [#/Vol] 5.3 10*3/uL 2.0-7.7 [facility] Neutrophils/100 WBC (Bld) 67.5 % 47-70 [facility] Potassium [Moles/Vol] 4.6 mmol/L 3.5-5.1 [facility] Comment on above: Moderate Hemolysis, Result may be falsely increased. Sodium [Moles/Vol] 140 mmol/L 136-145 [facility] WBC (Bld) [#/Vol] 7.9 10*3/uL 4.4-11.0 [facility] Determination of erythrocyte mean corpuscular volume (MCV)Ordered By: Alexandra Hagen on 05-12-2023 MCV (RBC) [Entitic vol] 93.1 fL 81-99 [facility] Erythrocyte distribution wid th ratioOrdered By: Alexandra Hagen on 05-12-2023 Erythrocyte distribution width (RBC) [Ratio] 13.5 % 11.6-14.6 [facility] Erythrocyte distribution wid th standard deviationOrdered By: Alexandra Hagen on 05-12-2023 Erythrocyte distribution width (RBC) [Entitic vol] 46.0 fL 35.1-43.9 [facility] Hematocrit Auto (Bld) [Volum e fraction]Ordered By: Alexandra Hagen on 05-12-2023 Hematocrit (Bld) [Volume fraction] 41.8 % 37-47 [facility] Immature granulocytes/100 WB C Auto (Bld)Ordered By: Alexandra Hagen on 05-12-2023 Immature granulocytes/100 WBC (Bld) 0.300 % 0.0-0.9 [facility] Comment on above: IG% - Immature Granu locytes (promyelocytes, myelocytes and metamyelocytes) > 1% indicates that a LEFT SHIFT is Present. Laboratory - Chemistry and C hemistry - challengeOrdered By: Alexandra Hagen on 05-12-2023 CO2 [Moles/Vol] 25.0 mmol/L 21.0-32.0 [facility] Urea nitrogen/Creatinine [Mass ratio] 13.7 mg/mg 10-20 [facility] Laboratory - Hematology and Cell countsOrdered By: Alexandra Hagen on 05-12-2023 MCH (RBC) [Entitic mass] 29.2 pg 27.0-32.0 [facility] MCHC (RBC) [Mass/Vol] 31.3 g/dL 32-36 [facility] Nucleated RBC/100 WBC (Bld) [Ratio] 0 % 0-5 [facility] Platelet mean volume (Bld) [Entitic vol] 10.6 fL 6.2-12.0 [facility] Platelets (Bld) [#/Vol] 272 10*3/uL 150-450 [facility] No Panel InformationOrdered By: Alexandra Hagen on 05-12-2023 Estimated GFR (MDRD) Amer 53 mL/min >60 [facility] Comment on above: GFR Calc Estimated GFR (MDRD) Non-Af Amer 43 mL/min >60 [facility] Comment on above: Non- GFR Calc RBC Auto (Bld) [#/Vol]Ordere d By: Alexandra Hagen on 05-12-2023 RBC (Bld) [#/Vol] 4.49 10*6/uL 4.2-5.4 [facility] Serum or plasma calcium viktoria urement (mass/volume)Ordered By: Alexandra Hagen on 05-12-2023 Calcium [Mass/Vol] 8.5 mg/dL 8.5-10.1 [facility] Serum or plasma creatinine m easurement (mass/volume)Ordered By: Alexandra Hagen on 05-12-2023 Creatinine [Mass/Vol] 1.24 mg/dL 0.55-1.02 [facility] Comment on above: The validity of the calculated GFR & GFRAA in patients over 70 years has not been determined. Clinical correlation is essential. Serum or plasma urea nitroge n measurement (mass/volume)Ordered By: Alexandra Hagen on 05-12-2023 Urea nitrogen [Mass/Vol] 17 mg/dL 7-18 [facility] Thin prep Papanicolaou smear with manual screeningOrdered By: Alexandra Hagen on 05-12-2023 Thin prep Papanicolaou smear with manual screening 6 5-15 [facility] Whole blood hemoglobin A1c/t otal hemoglobin ratio (mass fraction)Ordered By: Alexandra Hagen on 05-12-2023 HbA1c (Bld) [Mass fraction] 6.8 % 3.8-5.6 [facility] Comment on above: Normal < 5.7 % Predi abetic 5.7 - 6.4 % Diabetic >or= 6.5 % Please note range changes. Capillary blood internationa l normalized ratio (INR)Ordered By: Alexandra Hagen on 05-01-2023 INR Coag (BldC) [Relative time] 2.0 [facility] Comment on above: Critical Value > 4.0 Whole blood prothrombin time Ordered By: Alexandra Hagen on 05-01-2023 PT Coag (Bld) [Time] 21.0 s 11.7-14.9 [facility] International normalized rat io (INR) calculationOrdered By: Alexandra Hagen on 04-17-2023 INR Coag (PPP) [Relative time] 1.8 {INR} [facility] Laboratory - CoagulationOrde red By: Alexandra Hagen on 04-17-2023 PT Coag (PPP) [Time] 21.0 s 11.7-14.9 [facility] Laboratory - CoagulationOrde red By: Alexandra Hagen on 03-20-2023 INR Coag (Bld) [Relative time] 2.4 {INR} [facility] Comment on above: Critical Value > 4.0 Whole blood prothrombin time Ordered By: Alexandra Hagen on 03-20-2023 PT Coag (Bld) [Time] 25.7 s 11.7-14.9 [facility] Basophil percentageOrdered B y: Alexandra Hagen on 02-21-2023 Bilirubin [Mass/Vol] 0.60 mg/dL 0.20-1.00 [facility] Comment on above: For patients on eltr ombopag therapy, use of Dimension [place] TBIL is not recommended. Chloride [Moles/Vol] 107 mmol/L 98-107 [facility] Cholesterol [Mass/Vol] 127 mg/dL <200 [facility] Comment on above: <200 mg/dL Desirable 200-240 mg/dL Borderline >240 mg/dL High Risk Glucose [Mass/Vol] 134 mg/dL 74-106 [facility] Comment on above: Fasting Glucose resu lt greater than or equal to 126 mg/dL suggests DIABETES MELLITUS per A.D.A. criteria. Potassium [Moles/Vol] 4.2 mmol/L 3.5-5.1 [facility] Protein [Mass/Vol] 6.2 g/dL 6.4-8.2 [facility] Sodium [Moles/Vol] 138 mmol/L 136-145 [facility] Triglyceride [Mass/Vol] 102 mg/dL <[address] [facility] Comment on above: The drugs N-Acetylcy steine and Metamizole may falsely depress this assay.Serum Triglycerides Reference Interval Normal <150 mg/dL Borderline high 150 - 199 mg/dL High 200 - 499 mg/dL Very High > or = 500 mg/dL WBC (Bld) [#/Vol] 7.7 10*3/uL 4.4-11.0 [facility] Blood erythrocytes count (nu mber/volume)Ordered By: Alexandra Hagen on 02-21-2023 RBC (Bld) [#/Vol] 4.19 10*6/uL 4.2-5.4 [facility] Blood hemoglobin measurement (mass/volume)Ordered By: Alexandra Hagen on 02-21-2023 Hemoglobin (Bld) [Mass/Vol] 12.5 g/dL 12.0-15.0 [facility] Blood platelet mean volumeOr dered By: Alexandra Hagen on 02-21-2023 Platelet mean volume (Bld) [Entitic vol] 10.8 fL 6.2-12.0 [facility] Determination of erythrocyte mean corpuscular volume (MCV)Ordered By: Alexandra Hagen on 02-21-2023 MCV (RBC) [Entitic vol] 91.2 fL 81-99 [facility] Hematocrit Auto (Bld) [Volum e fraction]Ordered By: Alexandra Haegn on 02-21-2023 Hematocrit (Bld) [Volume fraction] 38.2 % 37-47 [facility] INR in Blood by Coagulation assayOrdered By: Alexandra Hagen on 02-21-2023 INR Coag (Bld) [Relative time] 2.3 {INR} [facility] Laboratory - Chemistry and C hemistry - challengeOrdered By: Alexandra Hagen on 02-21-2023 ALP [Catalytic activity/Vol] 84 U/L 45-117 [facility] ALT [Catalytic activity/Vol] 11 U/L 13-56 [facility] CO2 [Moles/Vol] 27.0 mmol/L 21.0-32.0 [facility] Globulin (S) [Mass/Vol] 3.3 g/dL 2.2-4.2 [facility] Urea nitrogen/Creatinine [Mass ratio] 14.0 mg/mg 10-20 [facility] Laboratory - CoagulationOrde red By: Alexandra Hagen on 02-21-2023 PT Coag (PPP) [Time] 25.3 s 11.7-14.9 [facility] Laboratory - Hematology and Cell countsOrdered By: Alexandra Hagen on 02-21-2023 Erythrocyte distribution width (RBC) [Entitic vol] 44.8 fL 35.1-43.9 [facility] Erythrocyte distribution width (RBC) [Ratio] 13.4 % 11.6-14.6 [facility] MCH (RBC) [Entitic mass] 29.8 pg 27.0-32.0 [facility] MCHC Auto (RBC) [Mass/Vol]Or dered By: Alexandra Hagen on 02-21-2023 MCHC (RBC) [Mass/Vol] 32.7 g/dL 32-36 [facility] No Panel InformationOrdered By: Alexandra Hagen on 02-21-2023 Estimated GFR (MDRD) Amer 68 mL/min >60 [facility] Comment on above: GFR Calc Estimated GFR (MDRD) Non-Af Amer 56 mL/min >60 [facility] Comment on above: Non- GFR Calc Platelets bldOrdered By: Alexandra Hagen on 02-21-2023 Platelets (Bld) [#/Vol] 297 10*3/uL 150-450 [facility] Serum or plasma albumin viktoria urement (mass/volume)Ordered By: Alexandra Hagen on 02-21-2023 Albumin [Mass/Vol] 2.9 g/dL 3.2-5.0 [facility] Serum or plasma albumin/glob ulin mass ratioOrdered By: Alexandra Hagen on 02-21-2023 Albumin/Globulin [Mass ratio] 0.9 {ratio} 0.9-2.4 [facility] Serum or plasma calcium viktoria urement (mass/volume)Ordered By: Alexandra Hagen on 02-21-2023 Calcium [Mass/Vol] 8.4 mg/dL 8.5-10.1 [facility] Serum or plasma cholesterol in HDL measurement (mass/volume)Ordered By: Alexandra Hagen on 02-21-2023 Cholesterol in HDL [Mass/Vol] 50 mg/dL >40 [facility] Comment on above: The drugs N-Acetylcy steine and Metamizole may falsely depress this assay. Reference Range HDL <40 mg/dL Low HDL Cholesterol HDL >or= 60 mg/dL High HDL Cholesterol Serum or plasma cholesterol in VLDL measurement (mass/volume)Ordered By: Alexandra Hagen on 02-21-2023 Cholesterol in VLDL [Mass/Vol] 20 mg/dL 5-40 [facility] Serum or plasma creatinine m easurement (mass/volume)Ordered By: Alexandra Hagen on 02-21-2023 Creatinine [Mass/Vol] 1.00 mg/dL 0.55-1.02 [facility] Comment on above: The validity of the calculated GFR & GFRAA in patients over 70 years has not been determined. Clinical correlation is essential. Serum or plasma low density lipoprotein (LDL) cholesterol measurement (mass/volume)Ordered By: Alexandra Hagen on 02-21-2023 Cholesterol in LDL [Mass/Vol] 57 mg/dL 0-130 [facility] Serum or plasma urea nitroge n measurement (mass/volume)Ordered By: Alexandra Hagen on 02-21-2023 Urea nitrogen [Mass/Vol] 14 mg/dL 7-18 [facility] Thin prep Papanicolaou smear with manual screeningOrdered By: Alexandra Hagen on 02-21-2023 Thin prep Papanicolaou smear with manual screening 16 U/L 15-37 [facility] Thin prep Papanicolaou smear with manual screening 4 5-15 [facility] Albumin Elph [Mass/Vol]Order ed By: Anant Juarez on 01-20-2023 Albumin [Mass/Vol] 3.4 g/dL 2.9-4.4 [facility] Basophil percentageOrdered B y: Anant Juarez on 01-20-2023 Basophil percentage Comment . [facility] Comment on above: No monoclonality det ected.Performed at: [facility] [id number] Director: Master Vee PhD, Phone: [phone] Interpretation of serum or p lasma protein pattern by immunofixation (narrative resultOrdered By: Anant Juarez on 01-20-2023 Protein Fractions Immunofixation Manuel [Interp] See comment [facility] Comment on above: Result: Not Observed No Panel InformationOrdered By: Anant Juarez on 01-20-2023 Addendum Document Comment . [facility] Comment on above: Protein electrophore sis scan will follow via computer,mail, or drip pumper delivery. Serum [id number] measu rement by electrophoresisOrdered By: Anant Juarez on 01-20-2023 Alpha 1 globulin Elph [Mass/Vol] 0.3 g/dL 0.0-0.4 [facility] Alpha 1 globulin Elph [Mass/Vol] 0.9 g/dL 0.4-1.0 [facility] Serum globulin measurement ( mass/volume)Ordered By: Anant Juarez on 01-20-2023 Globulin (S) [Mass/Vol] 3.0 g/dL 2.2-3.[address] [facility] Serum or plasma IgA measurem ent (mass/volume)Ordered By: Anant Juarez on 01-20-2023 IgA [Mass/Vol] 158 mg/dL 64-422 [facility] Serum or plasma IgG measurem ent (mass/volume)Ordered By: Anant Juarez on 01-20-2023 IgG [Mass/Vol] 847 mg/dL 586-1602 [facility] Serum or plasma IgM measurem ent (mass/volume)Ordered By: Annat Juarez on 01-20-2023 IgM [Mass/Vol] 48 mg/dL 26-217 [facility] Serum or plasma beta globuli n measurement by electrophoresis (mass/volume)Ordered By: Anant Juarez 01-20-2023 Beta globulin Elph [Mass/Vol] 1.0 g/dL 0.7-1.3 [facility] Serum or plasma gamma globul in measurement by electrophoresis (mass/volume)Ordered By: Anant Juarez on 01-20-2023 Gamma globulin Elph [Mass/Vol] 0.7 g/dL 0.4-1.8 [facility] Serum or plasma immunoelectr ophoresis interpretation (nominal result)Ordered By: Anant Juarez on 01-20-2023 Interpretation IEP [Interp] Comment . [facility] Comment on above: No monoclonality det ected. Thin prep Papanicolaou smear with manual screeningOrdered By: Anant Juarez on 01-20-2023 Thin prep Papanicolaou smear with manual screening 1.2 0.7-1.7 [facility] Total protein bloodOrdered B y: Anant Juarez on 01-20-2023 Protein [Mass/Vol] 6.4 g/dL 6.0-8.5 [facility] Laboratory - CoagulationOrde red By: Alexandra Hagen on 01-16-2023 INR Coag (Bld) [Relative time] 2.2 {INR} [facility] Comment on above: Critical Value > 4.0 Whole blood prothrombin time Ordered By: Alexandra Hagen on 01-16-2023 PT Coag (Bld) [Time] 24.2 s 11.7-14.9 [facility] Absolute lymphocyte countOrd ered By: Lynn Horn on 12-28-2022 Lymphocytes Auto (Unsp spec) [#/Vol] 1.57 10*3/uL 0.83-4.51 [facility] Basophil percentageOrdered B y: Lynn Horn on 12-28-2022 Basophils/100 WBC (Bld) 0.6 % 0-[address] [facility] Chloride [Moles/Vol] 108 mmol/L 98-107 [facility] Eosinophils/100 WBC (Bld) 3.0 % 0-5 [facility] Glucose [Mass/Vol] 117 mg/dL 74-106 [facility] Comment on above: Fasting Glucose resu lt from 100 to 125 mg/dL suggests IMPAIRED HOMEOSTASIS per A.D.A. criteria. Neutrophils (Bld) [#/Vol] 5.3 10*3/uL 2.0-7.7 [facility] Neutrophils/100 WBC (Bld) 66.8 % 47-70 [facility] Potassium [Moles/Vol] 3.9 mmol/L 3.5-5.1 [facility] Sodium [Moles/Vol] 138 mmol/L 136-145 [facility] WBC (Bld) [#/Vol] 7.9 10*3/uL 4.4-11.0 [facility] Blood erythrocytes count (nu mber/volume)Ordered By: Lynn Horn on 12-28-2022 RBC (Bld) [#/Vol] 4.32 10*6/uL 4.2-5.4 [facility] Blood hemoglobin measurement (mass/volume)Ordered By: Lynn Horn on 12-28-2022 Hemoglobin (Bld) [Mass/Vol] 12.8 g/dL 12.0-15.0 [facility] Blood lymphocytes/100 leukoc ytesOrdered By: Lynn Horn on 12-28-2022 Lymphocytes/100 WBC (Bld) 19.8 % 19-41 [facility] Blood monocytes/100 leukocyt esOrdered By: Lynn Horn on 12-28-2022 Monocytes/100 WBC (Bld) 9.5 % 0-10 [facility] Blood platelet mean volumeOr dered By: Lynn Horn on 12-28-2022 Platelet mean volume (Bld) [Entitic vol] 10.6 fL 6.2-12.0 [facility] Determination of erythrocyte mean corpuscular volume (MCV)Ordered By: Lynn Horn on 12-28-2022 MCV (RBC) [Entitic vol] 91.0 fL 81-99 [facility] Hematocrit Auto (Bld) [Volum e fraction]Ordered By: Lynn Horn on 12-28-2022 Hematocrit (Bld) [Volume fraction] 39.3 % 37-47 [facility] INR in Blood by Coagulation assayOrdered By: Lynn Horn on 12-28-2022 INR Coag (Bld) [Relative time] 2.1 {INR} [facility] Laboratory - Chemistry and C hemistry - challengeOrdered By: Lynn Horn on 12-28-2022 CO2 [Moles/Vol] 27.0 mmol/L 21.0-32.0 [facility] Urea nitrogen/Creatinine [Mass ratio] 15.7 mg/mg 10-20 [facility] Laboratory - CoagulationOrde red By: Lynn Horn on 12-28-2022 PT Coag (PPP) [Time] 23.8 s 11.7-14.9 [facility] Laboratory - Hematology and Cell countsOrdered By: Lynn Horn on 12-28-2022 Erythrocyte distribution width (RBC) [Entitic vol] 43.0 fL 35.1-43.9 [facility] Erythrocyte distribution width (RBC) [Ratio] 12.9 % 11.6-14.6 [facility] Immature granulocytes/100 WBC (Bld) 0.300 % 0.0-0.9 [facility] Comment on above: IG% - Immature Granu locytes (promyelocytes, myelocytes and metamyelocytes) > 1% indicates that a LEFT SHIFT is Present. MCH (RBC) [Entitic mass] 29.6 pg 27.0-32.0 [facility] Nucleated RBC/100 WBC (Bld) [Ratio] 0 % 0-5 [facility] MCHC Auto (RBC) [Mass/Vol]Or dered By: Lynn Horn on 12-28-2022 MCHC (RBC) [Mass/Vol] 32.6 g/dL 32-36 [facility] No Panel InformationOrdered By: Lynn Horn on 12-28-2022 Estimated Creatinine Clearance Calc 36.84 ml/min [facility] Estimated GFR (MDRD) Amer 77 mL/min >60 [facility] Comment on above: GFR Calc Estimated GFR (MDRD) Non-Af Amer 64 mL/min >60 [facility] Comment on above: Non- GFR Calc Platelets bldOrdered By: Lois Horn on 12-28-2022 Platelets (Bld) [#/Vol] 272 10*3/uL 150-450 [facility] Serum or plasma calcium viktoria urement (mass/volume)Ordered By: Lynn Horn on 12-28-2022 Calcium [Mass/Vol] 8.3 mg/dL 8.5-10.1 [facility] Serum or plasma creatinine m easurement (mass/volume)Ordered By: Lynn Horn on 12-28-2022 Creatinine [Mass/Vol] 0.89 mg/dL 0.55-1.02 [facility] Comment on above: The validity of the calculated GFR & GFRAA in patients over 70 years has not been determined. Clinical correlation is essential. Serum or plasma urea nitroge n measurement (mass/volume)Ordered By: Lynn Horn on 12-28-2022 Urea nitrogen [Mass/Vol] 14 mg/dL 7-18 [facility] Thin prep Papanicolaou smear with manual screeningOrdered By: Lynn Horn on 12-28-2022 Thin prep Papanicolaou smear with manual screening 3 5-15 [facility] Laboratory - CoagulationOrde red By: Lali Pimentel on 12-27-2022 aPTT Coag (Bld) [Time] 48.2 s 24.1-36.2 [facility] No Panel InformationOrdered By: Lali Pimentel on 12-27-2022 Troponin I High Sensitivity 10 pg/mL 3.0-54.0 [facility] Comment on above: Please Note: New Evon t Units and Gender Specific Reference Ranges. For more information see Policy Stat Procedure [place] High Sensitivity Troponin (TNIH) and attachments. Laboratory - CoagulationOrde red By: Alexandra Hagen on 12-19-2022 INR Coag (Bld) [Relative time] 2.8 {INR} [facility] Comment on above: Critical Value > 4.0 Whole blood prothrombin time Ordered By: Alexandra Hagen on 12-19-2022 PT Coag (Bld) [Time] 29.7 s 11.7-14.9 [facility] Absolute lymphocyte countOrd ered By: Alexandra Hagen on 12-09-2022 Lymphocytes Auto (Unsp spec) [#/Vol] 1.65 10*3/uL 0.83-4.51 [facility] Basophil percentageOrdered B y: Alexandra Hagen on 12-09-2022 Basophils/100 WBC (Bld) 0.4 % 0-[address] [facility] Chloride [Moles/Vol] 107 mmol/L 98-107 [facility] Eosinophils/100 WBC (Bld) 3.6 % 0-5 [facility] Glucose [Mass/Vol] 125 mg/dL 74-106 [facility] Comment on above: Fasting Glucose resu lt from 100 to 125 mg/dL suggests IMPAIRED HOMEOSTASIS per A.D.A. criteria. Neutrophils (Bld) [#/Vol] 4.3 10*3/uL 2.0-7.7 [facility] Neutrophils/100 WBC (Bld) 61.6 % 47-70 [facility] Potassium [Moles/Vol] 4.8 mmol/L 3.5-5.1 [facility] Sodium [Moles/Vol] 138 mmol/L 136-145 [facility] WBC (Bld) [#/Vol] 7.0 10*3/uL 4.4-11.0 [facility] Blood erythrocytes count (nu mber/volume)Ordered By: Alexandra Hagen on 12-09-2022 RBC (Bld) [#/Vol] 4.30 10*6/uL 4.2-5.4 [facility] Blood hemoglobin measurement (mass/volume)Ordered By: Alexandra Hagen on 12-09-2022 Hemoglobin (Bld) [Mass/Vol] 13.1 g/dL 12.0-15.0 [facility] Blood lymphocytes/100 leukoc ytesOrdered By: Alexandra Hagen on 12-09-2022 Lymphocytes/100 WBC (Bld) 23.7 % 19-41 [facility] Blood monocytes/100 leukocyt esOrdered By: Alexandra Hagen on 12-09-2022 Monocytes/100 WBC (Bld) 10.4 % 0-10 [facility] Blood platelet mean volumeOr dered By: Alexandra Hagen on 12-09-2022 Platelet mean volume (Bld) [Entitic vol] 10.7 fL 6.2-12.0 [facility] Determination of erythrocyte mean corpuscular volume (MCV)Ordered By: Alexandra Hagen on 12-09-2022 MCV (RBC) [Entitic vol] 92.3 fL 81-99 [facility] Hematocrit Auto (Bld) [Volum e fraction]Ordered By: Alexandra Hagen on 12-09-2022 Hematocrit (Bld) [Volume fraction] 39.7 % 37-47 [facility] - Chemistry and C hemistry - challengeOrdered By: Alexandra Hagen on 12-09-2022 CO2 [Moles/Vol] 26.0 mmol/L 21.0-32.0 [facility] Urea nitrogen/Creatinine [Mass ratio] 14.4 mg/mg 10-20 [facility] - Hematology and Cell countsOrdered By: Alexandra Hagen on 12-09-2022 Erythrocyte distribution width (RBC) [Entitic vol] 44.0 fL 35.1-43.9 [facility] Erythrocyte distribution width (RBC) [Ratio] 13.1 % 11.6-14.6 [facility] Immature granulocytes/100 WBC (Bld) 0.300 % 0.0-0.9 [facility] Comment on above: IG% - Immature Granu locytes (promyelocytes, myelocytes and metamyelocytes) > 1% indicates that a LEFT SHIFT is Present. MCH (RBC) [Entitic mass] 30.5 pg 27.0-32.0 [facility] Nucleated RBC/100 WBC (Bld) [Ratio] 0 % 0-5 [facility] MCHC Auto (RBC) [Mass/Vol]Or dered By: Alexandra Hagen on 12-09-2022 MCHC (RBC) [Mass/Vol] 33.0 g/dL 32-36 [facility] No Panel InformationOrdered By: Alexandra Hagen on 12-09-2022 Estimated GFR (MDRD) Amer 60 mL/min >60 [facility] Comment on above: GFR Calc Estimated GFR (MDRD) Non-Af Amer 49 mL/min >60 [facility] Comment on above: Non- GFR Calc Platelets bldOrdered By: Alexandra Hagen on 12-09-2022 Platelets (Bld) [#/Vol] 293 10*3/uL 150-450 [facility] Serum or plasma calcium viktoria urement (mass/volume)Ordered By: Alexandra Hagen on 12-09-2022 Calcium [Mass/Vol] 8.7 mg/dL 8.5-10.1 [facility] Serum or plasma creatinine m easurement (mass/volume)Ordered By: Alexandra Hagen on 12-09-2022 Creatinine [Mass/Vol] 1.11 mg/dL 0.55-1.02 [facility] Comment on above: The validity of the calculated GFR & GFRAA in patients over 70 years has not been determined. Clinical correlation is essential. Serum or plasma urea nitroge n measurement (mass/volume)Ordered By: Alexandra Hagen on 12-09-2022 Urea nitrogen [Mass/Vol] 16 mg/dL 7-18 [facility] Thin prep Papanicolaou smear with manual screeningOrdered By: Alexandra Hagen on 12-09-2022 Thin prep Papanicolaou smear with manual screening 5 5-15 [facility] Whole blood hemoglobin A1c/t otal hemoglobin ratio (mass fraction)Ordered By: Alexandra Hagen on 12-09-2022 HbA1c (Bld) [Mass fraction] 6.7 % 3.8-5.6 [facility] Comment on above: Normal < 5.7 % Predi abetic 5.7 - 6.4 % Diabetic >or= 6.5 % Please note range changes. Basophil percentageOrdered B y: Alexandra Hagen on 11-20-2022 Bilirubin [Mass/Vol] 0.50 mg/dL 0.20-1.00 [facility] Comment on above: For patients on eltr ombopag therapy, use of [place] TBIL is not recommended. Chloride [Moles/Vol] 105 mmol/L 98-107 [facility] Cholesterol [Mass/Vol] 167 mg/dL <200 [facility] Comment on above: <200 mg/dL Desirable 200-240 mg/dL Borderline >240 mg/dL High Risk Glucose [Mass/Vol] 153 mg/dL 74-106 [facility] Comment on above: Fasting Glucose resu lt greater than or equal to 126 mg/dL suggests DIABETES MELLITUS per A.D.A. criteria. Potassium [Moles/Vol] 4.2 mmol/L 3.5-5.1 [facility] Protein [Mass/Vol] 6.7 g/dL 6.4-8.2 [facility] Sodium [Moles/Vol] 138 mmol/L 136-145 [facility] Triglyceride [Mass/Vol] 120 mg/dL <[address] [facility] Comment on above: The drugs N-Acetylcy steine and Metamizole may falsely depress this assay.Serum Triglycerides Reference Interval Normal <150 mg/dL Borderline high 150 - 199 mg/dL High 200 - 499 mg/dL Very High > or = 500 mg/dL WBC (Bld) [#/Vol] 7.4 10*3/uL 4.4-11.0 [facility] Blood erythrocytes count (nu mber/volume)Ordered By: Alexandra Hagen on 11-20-2022 RBC (Bld) [#/Vol] 4.37 10*6/uL 4.2-5.4 [facility] Blood hemoglobin measurement (mass/volume)Ordered By: Alexandra Hagen on 11-20-2022 Hemoglobin (Bld) [Mass/Vol] 13.1 g/dL 12.0-15.0 [facility] Blood platelet mean volumeOr dered By: Alexandra Hagen on 11-20-2022 Platelet mean volume (Bld) [Entitic vol] 10.8 fL 6.2-12.0 [facility] Determination of erythrocyte mean corpuscular volume (MCV)Ordered By: Alexandra Hagen on 11-20-2022 MCV (RBC) [Entitic vol] 91.5 fL 81-[address] [facility] Hematocrit Auto (Bld) [Volum e fraction]Ordered By: Alexandra Hagen on 11-20-2022 Hematocrit (Bld) [Volume fraction] 40.0 % 37-47 [facility] INR in Blood by Coagulation assayOrdered By: Alexandra Hagen on 11-20-2022 INR Coag (Bld) [Relative time] 2.0 {INR} [facility] - Chemistry and C hemistry - challengeOrdered By: Alexandra Hagen on 11-20-2022 ALP [Catalytic activity/Vol] 72 U/L 45-117 [facility] ALT [Catalytic activity/Vol] 13 U/L 13-56 [facility] CO2 [Moles/Vol] 30.0 mmol/L 21.0-32.0 [facility] Globulin (S) [Mass/Vol] 3.6 g/dL 2.2-4.[address] [facility] Urea nitrogen/Creatinine [Mass ratio] 12.8 mg/mg 10-20 [facility] - CoagulationOrde red By: Alexandra Hagen on 11-20-2022 PT Coag (PPP) [Time] 22.6 s 11.7-14.9 [facility] - Hematology and Cell countsOrdered By: Alexandra Hagen on 11-20-2022 Erythrocyte distribution width (RBC) [Entitic vol] 43.4 fL 35.1-43.9 [facility] Erythrocyte distribution width (RBC) [Ratio] 12.9 % 11.6-14.6 [facility] MCH (RBC) [Entitic mass] 30.0 pg 27.0-32.0 [facility] MCHC Auto (RBC) [Mass/Vol]Or dered By: Alexandra Hagen on 11-20-2022 MCHC (RBC) [Mass/Vol] 32.8 g/dL 32-36 [facility] No Panel InformationOrdered By: Alexandra Hagen on 11-20-2022 Estimated GFR (MDRD) Amer 61 mL/min >60 [facility] Comment on above: GFR Calc Estimated GFR (MDRD) Non-Af Amer 50 mL/min >60 [facility] Comment on above: Non- GFR Calc Platelets bldOrdered By: Alexandra Hagen on 11-20-2022 Platelets (Bld) [#/Vol] 310 10*3/uL 150-450 [facility] Serum or plasma albumin viktoria urement (mass/volume)Ordered By: Alexandra Hagen on 11-20-2022 Albumin [Mass/Vol] 3.1 g/dL 3.2-5.0 [facility] Serum or plasma albumin/glob ulin mass ratioOrdered By: Alexandra Hagen on 11-20-2022 Albumin/Globulin [Mass ratio] 0.9 {ratio} 0.9-2.4 [facility] Serum or plasma calcium viktoria urement (mass/volume)Ordered By: Alexandra Hagen on 11-20-2022 Calcium [Mass/Vol] 8.6 mg/dL 8.5-10.1 [facility] Serum or plasma cholesterol in HDL measurement (mass/volume)Ordered By: Alexandra Hagen on 11-20-2022 Cholesterol in HDL [Mass/Vol] 55 mg/dL >40 [facility] Comment on above: The drugs N-Acetylcy steine and Metamizole may falsely depress this assay. Reference Range HDL <40 mg/dL Low HDL Cholesterol HDL >or= 60 mg/dL High HDL Cholesterol Serum or plasma cholesterol in VLDL measurement (mass/volume)Ordered By: Alexandra Hagen on 11-20-2022 Cholesterol in VLDL [Mass/Vol] 24 mg/dL 5-40 [facility] Serum or plasma creatinine m easurement (mass/volume)Ordered By: Alexandra Hagen on 11-20-2022 Creatinine [Mass/Vol] 1.09 mg/dL 0.55-1.02 [facility] Comment on above: The validity of the calculated GFR & GFRAA in patients over 70 years has not been determined. Clinical correlation is essential. Serum or plasma low density lipoprotein (LDL) cholesterol measurement (mass/volume)Ordered By: Alexandra Hagen on 11-20-2022 Cholesterol in LDL [Mass/Vol] 88 mg/dL 0-130 [facility] Serum or plasma urea nitroge n measurement (mass/volume)Ordered By: Alexandra Hagen on 11-20-2022 Urea nitrogen [Mass/Vol] 14 mg/dL 7-18 [facility] Thin prep Papanicolaou smear with manual screeningOrdered By: Alexandra Hagen on 11-20-2022 Thin prep Papanicolaou smear with manual screening 15 U/L 15-37 [facility] Thin prep Papanicolaou smear with manual screening 3 5-15 [facility] Absolute lymphocyte countOrd ered By: Mo Corea on 11-18-2022 Lymphocytes Auto (Unsp spec) [#/Vol] 1.95 10*3/uL 0.83-4.51 [facility] Basophil percentageOrdered B y: Mo Corea on 11-18-2022 Basophil percentage 0-5 SEEN /hpf 0-5 [facility] Basophils/100 WBC (Bld) 0.4 % 0-1 [facility] Bilirubin [Mass/Vol] 0.40 mg/dL 0.20-1.00 [facility] Comment on above: For patients on eltr ombopag therapy, use of [place] TBIL is not recommended. Chloride [Moles/Vol] 108 mmol/L 98-107 [facility] Eosinophils/100 WBC (Bld) 3.4 % 0-5 [facility] Glucose [Mass/Vol] 126 mg/dL 74-106 [facility] Comment on above: Fasting Glucose resu lt greater than or equal to 126 mg/dL suggests DIABETES MELLITUS per A.D.A. criteria. Neutrophils (Bld) [#/Vol] 4.4 10*3/uL 2.0-7.7 [facility] Neutrophils/100 WBC (Bld) 59.9 % 47-70 [facility] Potassium [Moles/Vol] 3.9 mmol/L 3.5-5.1 [facility] Protein [Mass/Vol] 6.9 g/dL 6.4-8.2 [facility] Sodium [Moles/Vol] 140 mmol/L 136-145 [facility] WBC (Bld) [#/Vol] 7.3 10*3/uL 4.4-11.0 [facility] Bilirubin Test strip Ql (U)O rdered By: Mo Corea on 11-18-2022 Bilirubin Ql (U) Negative Negative [facility] Blood erythrocytes count (nu mber/volume)Ordered By: Mo Corea on 11-18-2022 RBC (Bld) [#/Vol] 4.63 10*6/uL 4.2-5.4 [facility] Blood hemoglobin measurement (mass/volume)Ordered By: Mo Corea on 11-18-2022 Hemoglobin (Bld) [Mass/Vol] 13.9 g/dL 12.0-15.0 [facility] Blood lymphocytes/100 leukoc ytesOrdered By: Mo Corea on 11-18-2022 Lymphocytes/100 WBC (Bld) 26.8 % 19-41 [facility] Blood monocytes/100 leukocyt esOrdered By: Mo Corea on 11-18-2022 Monocytes/100 WBC (Bld) 9.2 % 0-10 [facility] Blood platelet mean volumeOr dered By: Mo Corea on 11-18-2022 Platelet mean volume (Bld) [Entitic vol] 10.5 fL 6.2-12.0 [facility] Determination of erythrocyte mean corpuscular volume (MCV)Ordered By: Mo Corea on 11-18-2022 MCV (RBC) [Entitic vol] 92.4 fL 81-99 [facility] Hematocrit Auto (Bld) [Volum e fraction]Ordered By: Mo Corea on 11-18-2022 Hematocrit (Bld) [Volume fraction] 42.8 % 37-47 [facility] INR in Blood by Coagulation assayOrdered By: Mo Corea on 11-18-2022 INR Coag (Bld) [Relative time] 2.0 {INR} [facility] Ketones Test strip Ql (U)Ord ered By: Mo Corea on 11-18-2022 Ketones Ql (U) Negative Negative [facility] - Chemistry and C hemistry - challengeOrdered By: Mo Corea on 11-18-2022 ALP [Catalytic activity/Vol] 76 U/L 45-117 [facility] ALT [Catalytic activity/Vol] 13 U/L 13-56 [facility] CO2 [Moles/Vol] 30.0 mmol/L 21.0-32.0 [facility] Globulin (S) [Mass/Vol] 3.6 g/dL 2.2-4.2 [facility] Urea nitrogen/Creatinine [Mass ratio] 13.6 mg/mg 10-20 [facility] - CoagulationOrde red By: Mo Corea on 11-18-2022 aPTT Coag (Bld) [Time] 48.1 s 24.1-36.2 [facility] PT Coag (PPP) [Time] 22.7 s 11.7-14.9 [facility] - Hematology and Cell countsOrdered By: Mo Corea on 11-18-2022 Erythrocyte distribution width (RBC) [Entitic vol] 44.2 fL 35.1-43.9 [facility] Erythrocyte distribution width (RBC) [Ratio] 13.1 % 11.6-14.6 [facility] Immature granulocytes/100 WBC (Bld) 0.300 % 0.0-0.9 [facility] Comment on above: IG% - Immature Granu locytes (promyelocytes, myelocytes and metamyelocytes) > 1% indicates that a LEFT SHIFT is Present. MCH (RBC) [Entitic mass] 30.0 pg 27.0-32.0 [facility] Nucleated RBC/100 WBC (Bld) [Ratio] 0 % 0-5 [facility] MCHC Auto (RBC) [Mass/Vol]Or dered By: Mo Corea on 11-18-2022 MCHC (RBC) [Mass/Vol] 32.5 g/dL 32-36 [facility] Mucus LM Ql (Urine sed)Order ed By: Mo Corea on 11-18-2022 Mucus Ql (Urine sed) 0 SEEN /hpf [facility] Nitrite Test strip Ql (U)Ord ered By: Mo Corea on 11-18-2022 Nitrite Ql (U) Negative Negative [facility] No Panel InformationOrdered By: Mo Corea on 11-18-2022 Estimated Creatinine Clearance Calc 31.83 ml/min [facility] Estimated GFR (MDRD) Amer 65 mL/min >60 [facility] Comment on above: GFR Calc Estimated GFR (MDRD) Non-Af Amer 54 mL/min >60 [facility] Comment on above: Non- GFR Calc Platelets bldOrdered By: Rebecca Corea on 11-18-2022 Platelets (Bld) [#/Vol] 289 10*3/uL 150-450 [facility] Protein Test strip Ql (U)Ord ered By: Mo Corea on 11-18-2022 Protein Ql (U) 15 mg/dl Negative [facility] Serum or plasma albumin viktoria urement (mass/volume)Ordered By: Mo Corea on 11-18-2022 Albumin [Mass/Vol] 3.3 g/dL 3.2-5.0 [facility] Serum or plasma albumin/glob ulin mass ratioOrdered By: Mo Corea on 11-18-2022 Albumin/Globulin [Mass ratio] 0.9 {ratio} 0.9-2.4 [facility] Serum or plasma calcium viktoria urement (mass/volume)Ordered By: Mo Corea on 11-18-2022 Calcium [Mass/Vol] 8.7 mg/dL 8.5-10.1 [facility] Serum or plasma creatinine m easurement (mass/volume)Ordered By: Mo Corea on 11-18-2022 Creatinine [Mass/Vol] 1.03 mg/dL 0.55-1.02 [facility] Comment on above: The validity of the calculated GFR & GFRAA in patients over 70 years has not been determined. Clinical correlation is essential. Serum or plasma urea nitroge n measurement (mass/volume)Ordered By: Mo Corea on 11-18-2022 Urea nitrogen [Mass/Vol] 14 mg/dL 7-18 [facility] Squamous epithelial cells de tection in urine sediment by light microscopyOrdered By: Mo Corea on 11-18-2022 Epithelial cells.squamous LM Ql (Urine sed) 0-5 SEEN /hpf 5-10 [facility] Thin prep Papanicolaou smear with manual screeningOrdered By: Mo Corea on 11-18-2022 Thin prep Papanicolaou smear with manual screening 15 U/L 15-37 [facility] Thin prep Papanicolaou smear with manual screening 2 5-15 [facility] Urine blood detectionOrdered By: Mo Corea on 11-18-2022 RBC Ql (U) Negative Negative [facility] RBC Ql (U) 0 SEEN /hpf 0-5 [facility] Urine clarityOrdered By: Rebecca Corea on 11-18-2022 Clarity (U) Sl. Cloudy Clear [facility] Urine color determinationOrd ered By: Mo Corea on 11-18-2022 Color (U) Yellow Yellow [facility] Urine glucose detectionOrder ed By: Mo Corea on 11-18-2022 Glucose Ql (U) Normal mg/dl Normal [facility] Urine leukocyte esterase det ection by dipstickOrdered By: Mo Corea on 11-18-2022 Leukocyte esterase Test strip Ql (U) 25 /ul Negative [facility] Urine pHOrdered By: Mo amado on 11-18-2022 pH (U) 7.0 [pH] 5.0 - 8.0 [facility] Urine sediment bacteria coun t by microscopy (number/high power field)Ordered By: Mo Corea on 11-18-2022 Bacteria LM.HPF (Urine sed) [#/Area] 0 /[HPF] None Seen [facility] Urine specific gravity measu rementOrdered By: Mo Corea on 11-18-2022 Specific gravity (U) [Rel density] 1.010 1.002-1.030 [facility] Urobilinogen Auto test strip Ql (U)Ordered By: Mo Corea on 11-18-2022 Urobilinogen Ql (U) Normal mg/dl Normal [facility] Absolute lymphocyte countOrd ered By: Sae Carballo on 11-15-2022 Lymphocytes Auto (Unsp spec) [#/Vol] 2.03 10*3/uL 0.83-4.51 [facility] Basophil percentageOrdered B y: Sae Carballo on 11-15-2022 Basophils/100 WBC (Bld) 0.5 % 0-1 [facility] Chloride [Moles/Vol] 107 mmol/L 98-107 [facility] Cholesterol [Mass/Vol] 164 mg/dL <200 [facility] Comment on above: <200 mg/dL Desirable 200-240 mg/dL Borderline >240 mg/dL High Risk Eosinophils/100 WBC (Bld) 3.5 % 0-5 [facility] Glucose [Mass/Vol] 124 mg/dL 74-106 [facility] Comment on above: Fasting Glucose resu lt from 100 to 125 mg/dL suggests IMPAIRED HOMEOSTASIS per A.D.A. criteria. Neutrophils (Bld) [#/Vol] 4.7 10*3/uL 2.0-7.7 [facility] Neutrophils/100 WBC (Bld) 60.3 % 47-70 [facility] Potassium [Moles/Vol] 4.1 mmol/L 3.5-5.1 [facility] Sodium [Moles/Vol] 139 mmol/L 136-145 [facility] Triglyceride [Mass/Vol] 133 mg/dL <[address] [facility] Comment on above: The drugs N-Acetylcy steine and Metamizole may falsely depress this assay.Serum Triglycerides Reference Interval Normal <150 mg/dL Borderline high 150 - 199 mg/dL High 200 - 499 mg/dL Very High > or = 500 mg/dL WBC (Bld) [#/Vol] 7.8 10*3/uL 4.4-11.0 [facility] Blood erythrocytes count (nu mber/volume)Ordered By: Sae Carballo on 11-15-2022 RBC (Bld) [#/Vol] 4.32 10*6/uL 4.2-5.4 [facility] Blood hemoglobin measurement (mass/volume)Ordered By: Sae Carballo on 11-15-2022 Hemoglobin (Bld) [Mass/Vol] 12.9 g/dL 12.0-15.0 [facility] Blood lymphocytes/100 leukoc ytesOrdered By: Sae Carballo on 11-15-2022 Lymphocytes/100 WBC (Bld) 26.2 % 19-41 [facility] Blood monocytes/100 leukocyt esOrdered By: Sae Carballo on 11-15-2022 Monocytes/100 WBC (Bld) 9.4 % 0-[address] [facility] Blood platelet mean volumeOr dered By: Sae Carballo on 11-15-2022 Platelet mean volume (Bld) [Entitic vol] 10.6 fL 6.2-12.0 [facility] Determination of erythrocyte mean corpuscular volume (MCV)Ordered By: Sae Carballo on 11-15-2022 MCV (RBC) [Entitic vol] 91.7 fL 81-99 [facility] Hematocrit Auto (Bld) [Volum e fraction]Ordered By: Sae Carballo on 11-15-2022 Hematocrit (Bld) [Volume fraction] 39.6 % 37-47 [facility] INR in Blood by Coagulation assayOrdered By: Sae Carballo on 11-15-2022 INR Coag (Bld) [Relative time] 2.0 {INR} [facility] - Chemistry and C hemistry - challengeOrdered By: Sae Carballo on 11-15-2022 CO2 [Moles/Vol] 25.0 mmol/L 21.0-32.0 [facility] Urea nitrogen/Creatinine [Mass ratio] 15.8 mg/mg 10-20 [facility] - CoagulationOrde red By: Sae Carballo on 11-15-2022 PT Coag (PPP) [Time] 23.0 s 11.7-14.9 [facility] - Hematology and Cell countsOrdered By: Sae Carballo on 11-15-2022 Erythrocyte distribution width (RBC) [Entitic vol] 43.4 fL 35.1-43.9 [facility] Erythrocyte distribution width (RBC) [Ratio] 12.9 % 11.6-14.6 [facility] Immature granulocytes/100 WBC (Bld) 0.100 % 0.0-0.9 [facility] Comment on above: IG% - Immature Granu locytes (promyelocytes, myelocytes and metamyelocytes) > 1% indicates that a LEFT SHIFT is Present. MCH (RBC) [Entitic mass] 29.9 pg 27.0-32.0 [facility] Nucleated RBC/100 WBC (Bld) [Ratio] 0 % 0-5 [facility] MCHC Auto (RBC) [Mass/Vol]Or dered By: Sae Carballo on 11-15-2022 MCHC (RBC) [Mass/Vol] 32.6 g/dL 32-36 [facility] No Panel InformationOrdered By: Sae Carballo on 11-15-2022 Estimated Creatinine Clearance Calc 37.26 ml/min [facility] Estimated GFR (MDRD) Amer 78 mL/min >60 [facility] Comment on above: GFR Calc Estimated GFR (MDRD) Non-Af Amer 64 mL/min >60 [facility] Comment on above: Non- GFR Calc Platelets bldOrdered By: Ramos Carballo on 11-15-2022 Platelets (Bld) [#/Vol] 278 10*3/uL 150-450 [facility] Serum or plasma calcium viktoria urement (mass/volume)Ordered By: Sae Carballo on 11-15-2022 Calcium [Mass/Vol] 8.5 mg/dL 8.5-10.1 [facility] Serum or plasma cholesterol in HDL measurement (mass/volume)Ordered By: Sae Carballo on 11-15-2022 Cholesterol in HDL [Mass/Vol] 49 mg/dL >40 [facility] Comment on above: The drugs N-Acetylcy steine and Metamizole may falsely depress this assay. Reference Range HDL <40 mg/dL Low HDL Cholesterol HDL >or= 60 mg/dL High HDL Cholesterol Serum or plasma cholesterol in VLDL measurement (mass/volume)Ordered By: Sae Carballo on 11-15-2022 Cholesterol in VLDL [Mass/Vol] 27 mg/dL 5-40 [facility] Serum or plasma creatinine m easurement (mass/volume)Ordered By: Sae Carballo on 11-15-2022 Creatinine [Mass/Vol] 0.88 mg/dL 0.55-1.02 [facility] Comment on above: The validity of the calculated GFR & GFRAA in patients over 70 years has not been determined. Clinical correlation is essential. Serum or plasma low density lipoprotein (LDL) cholesterol measurement (mass/volume)Ordered By: Sae Carballo on 11-15-2022 Cholesterol in LDL [Mass/Vol] 88 mg/dL 0-130 [facility] Serum or plasma urea nitroge n measurement (mass/volume)Ordered By: Sae Carballo on 11-15-2022 Urea nitrogen [Mass/Vol] 14 mg/dL - [facility] Thin prep Papanicolaou smear with manual screeningOrdered By: Sae Carballo on 11-15-2022 Thin prep Papanicolaou smear with manual screening 7 - [facility] Absolute lymphocyte countOrd ered By: Neri Mitchell on 11-14-2022 Lymphocytes Auto (Unsp spec) [#/Vol] 2.35 10*3/uL 0.83-4.51 [facility] Basophil percentageOrdered B y: Neri Mitchell on 11-14-2022 Basophils/100 WBC (Bld) 0.6 % 0-1 [facility] Chloride [Moles/Vol] 104 mmol/L 98-107 [facility] Eosinophils/100 WBC (Bld) 2.4 % 0-5 [facility] Glucose [Mass/Vol] 135 mg/dL 74-106 [facility] Comment on above: Fasting Glucose resu lt greater than or equal to 126 mg/dL suggests DIABETES MELLITUS per A.D.A. criteria. Neutrophils (Bld) [#/Vol] 6.0 10*3/uL 2.0-7.7 [facility] Neutrophils/100 WBC (Bld) 64.0 % 47-70 [facility] Potassium [Moles/Vol] 4.0 mmol/L 3.5-5.1 [facility] Sodium [Moles/Vol] 138 mmol/L 136-145 [facility] WBC (Bld) [#/Vol] 9.4 10*3/uL 4.4-11.0 [facility] Blood erythrocytes count (nu mber/volume)Ordered By: Neri Mitchell on 11-14-2022 RBC (Bld) [#/Vol] 4.79 10*6/uL 4.2-5.4 [facility] Blood hemoglobin measurement (mass/volume)Ordered By: Neri Mitchell on 11-14-2022 Hemoglobin (Bld) [Mass/Vol] 14.3 g/dL 12.0-15.0 [facility] Blood lymphocytes/100 leukoc ytesOrdered By: Neri Mitchell on 11-14-2022 Lymphocytes/100 WBC (Bld) 24.9 % 19-41 [facility] Blood monocytes/100 leukocyt esOrdered By: Neri Mitchell on 11-14-2022 Monocytes/100 WBC (Bld) 7.8 % 0-10 [facility] Blood platelet mean volumeOr dered By: Neri Mitchell on 11-14-2022 Platelet mean volume (Bld) [Entitic vol] 10.6 fL 6.2-12.0 [facility] Determination of erythrocyte mean corpuscular volume (MCV)Ordered By: Neri Mitchell on 11-14-2022 MCV (RBC) [Entitic vol] 93.5 fL 81-99 [facility] Glucose Glucometer (BldC) [M ass/Vol]Ordered By: Neri Mitchell on 11-14-2022 Glucose [Mass/Vol] 136 mg/dL 74-106 [facility] Comment on above: MANAGEMENT OF PATIEN T CARE PER NURSING PROTOCOL Hematocrit Auto (Bld) [Volum e fraction]Ordered By: Neri Mitchell on 11-14-2022 Hematocrit (Bld) [Volume fraction] 44.8 % 37-47 [facility] INR in Blood by Coagulation assayOrdered By: Neri Mitchell on 11-14-2022 INR Coag (Bld) [Relative time] 1.8 {INR} [facility] - Chemistry and C hemistry - challengeOrdered By: Neri Mitchell on 11-14-2022 CO2 [Moles/Vol] 28.0 mmol/L 21.0-32.0 [facility] Urea nitrogen/Creatinine [Mass ratio] 12.3 mg/mg 10-20 [facility] - CoagulationOrde red By: Neri Mitchell on 11-14-2022 aPTT Coag (Bld) [Time] 43.3 s 24.1-36.2 [facility] PT Coag (PPP) [Time] 21.3 s 11.7-14.9 [facility] - Hematology and Cell countsOrdered By: Neri Mitchell on 11-14-2022 Erythrocyte distribution width (RBC) [Entitic vol] 44.7 fL 35.1-43.9 [facility] Erythrocyte distribution width (RBC) [Ratio] 13.0 % 11.6-14.6 [facility] Immature granulocytes/100 WBC (Bld) 0.300 % 0.0-0.9 [facility] Comment on above: IG% - Immature Granu locytes (promyelocytes, myelocytes and metamyelocytes) > 1% indicates that a LEFT SHIFT is Present. MCH (RBC) [Entitic mass] 29.9 pg 27.0-32.0 [facility] Nucleated RBC/100 WBC (Bld) [Ratio] 0 % 0-5 [facility] MCHC Auto (RBC) [Mass/Vol]Or dered By: Neri Mitchell on 11-14-2022 MCHC (RBC) [Mass/Vol] 31.9 g/dL 32-36 [facility] No Panel InformationOrdered By: Neri Mitchell on 11-14-2022 Estimated Creatinine Clearance Calc 28.76 ml/min [facility] Estimated GFR (MDRD) Amer 58 mL/min >60 [facility] Comment on above: GFR Calc Estimated GFR (MDRD) Non-Af Amer 48 mL/min >60 [facility] Comment on above: Non- GFR Calc Troponin I High Sensitivity 10 pg/mL 3.0-54.0 [facility] Comment on above: Please Note: New Evon t Units and Gender Specific Reference Ranges. For more information see Policy Stat Procedure [place] High Sensitivity Troponin (TNIH) and attachments. Platelets bldOrdered By: Prasad Mitchell on 11-14-2022 Platelets (Bld) [#/Vol] 313 10*3/uL 150-450 [facility] Serum or plasma calcium viktoria urement (mass/volume)Ordered By: Neri Mitchell on 11-14-2022 Calcium [Mass/Vol] 9.0 mg/dL 8.5-10.1 [facility] Serum or plasma creatinine m easurement (mass/volume)Ordered By: Neri Mitchell on 11-14-2022 Creatinine [Mass/Vol] 1.14 mg/dL 0.55-1.02 [facility] Comment on above: The validity of the calculated GFR & GFRAA in patients over 70 years has not been determined. Clinical correlation is essential. Serum or plasma urea nitroge n measurement (mass/volume)Ordered By: Neri Mitchell on 11-14-2022 Urea nitrogen [Mass/Vol] 14 mg/dL 7-18 [facility] Thin prep Papanicolaou smear with manual screeningOrdered By: Neri Mitchell on 11-14-2022 Thin prep Papanicolaou smear with manual screening 6 5-15 [facility] INR in Blood by Coagulation assayOrdered By: Dr. Juarez on 09-18-2022 INR Coag (Bld) [Relative time] 1.8 {INR} [facility] - CoagulationOrde red By: Dr. Juarez on 09-18-2022 PT Coag (PPP) [Time] 20.9 s 11.7-14.9 [facility] No Panel InformationOrdered By: Anant Juarez on 09-18-2022 Free Lambda Light Chains, Quant 15.7 mg/L 5.7-26.3 [facility] Whole Blood Vitamin B1 Level 111.8 nmol/L 66.5-200.0 [facility] Comment on above: Performed at: [facility] [employer] [id number] Director: Master Vee PhD, Phone: [phone] at: [facility] [employer] [id number] Director: Brandon Wells MD, Phone: [phone] Serum immunoglobulin kappa l ight chains/immunoglobulin lambda light chains mass ratioOrdered By: Anant Juarez on 09-18-2022 Immunoglobulin light chains.kappa/Immunoglobul in light chains.lambda (S) [Mass ratio] 1.74 0.26-1.65 [facility] Serum or plasma folate measu rement (mass/volume)Ordered By: Dr. Juarez on 09-18-2022 Folate [Mass/Vol] 51.90 ng/mL 3.1-55.4 [facility] Comment on above: Slight Hemolysis, Re sult may be falsely increased. Serum or plasma immunoglobul in kappa light chains measurement (mass/volume)Ordered By: Anant Juarez on 09-18-2022 Immunoglobulin light chains.kappa [Mass/Vol] 27.3 mg/L 3.3-19.4 [facility] Culture, urineOrdered By: Slim Doran on 09-17-2022 Bacteria identified Cx Nom (U) Streptococcus agalactiae (B) [facility] INR in Blood by Coagulation assayOrdered By: Dr. Doran on 09-13-2022 INR Coag (Bld) [Relative time] 1.5 {INR} [facility] - CoagulationOrde red By: Dr. Doran on 09-13-2022 PT Coag (PPP) [Time] 18.1 s 11.7-14.9 [facility] Absolute lymphocyte countOrd ered By: Dr. Barcenas on 09-08-2022 Lymphocytes Auto (Unsp spec) [#/Vol] 2.60 10*3/uL 0.83-4.51 [facility] Basophil percentageOrdered B y: Dr. Barcenas on 09-08-2022 Basophil percentage 0 SEEN /hpf 0-5 [facility] Basophils/100 WBC (Bld) 0.4 % 0-1 [facility] Bilirubin [Mass/Vol] 0.30 mg/dL 0.20-1.00 [facility] Comment on above: For patients on eltr ombopag therapy, use of Dimension [place] TBIL is not recommended. Chloride [Moles/Vol] 103 mmol/L 98-107 [facility] Eosinophils/100 WBC (Bld) 2.3 % 0-5 [facility] Glucose [Mass/Vol] 78 mg/dL 74-106 [facility] Neutrophils (Bld) [#/Vol] 5.2 10*3/uL 2.0-7.7 [facility] Neutrophils/100 WBC (Bld) 57.4 % 47-70 [facility] Potassium [Moles/Vol] 3.8 mmol/L 3.5-5.1 [facility] Protein [Mass/Vol] 6.9 g/dL 6.4-8.2 [facility] Sodium [Moles/Vol] 139 mmol/L 136-145 [facility] WBC (Bld) [#/Vol] 9.1 10*3/uL 4.4-11.0 [facility] Bilirubin Test strip Ql (U)O rdered By: Dr. Barcenas on 09-08-2022 Bilirubin Ql (U) Negative Negative [facility] Blood erythrocytes count (nu mber/volume)Ordered By: Dr. Barcenas on 09-08-2022 RBC (Bld) [#/Vol] 4.48 10*6/uL 4.2-5.4 [facility] Blood hemoglobin measurement (mass/volume)Ordered By: Dr. Barcenas on 09-08-2022 Hemoglobin (Bld) [Mass/Vol] 13.4 g/dL 12.0-15.0 [facility] Blood lymphocytes/100 leukoc ytesOrdered By: Dr. Barcenas on 09-08-2022 Lymphocytes/100 WBC (Bld) 28.5 % 19-41 [facility] Blood monocytes/100 leukocyt esOrdered By: Dr. Barcenas on 09-08-2022 Monocytes/100 WBC (Bld) 11.1 % 0-10 [facility] Blood platelet mean volumeOr dered By: Dr. Barcenas on 09-08-2022 Platelet mean volume (Bld) [Entitic vol] 10.7 fL 6.2-12.0 [facility] Determination of erythrocyte mean corpuscular volume (MCV)Ordered By: Dr. Barcenas on 09-08-2022 MCV (RBC) [Entitic vol] 92.4 fL 81-99 [facility] Hematocrit Auto (Bld) [Volum e fraction]Ordered By: Dr. Barcenas on 09-08-2022 Hematocrit (Bld) [Volume fraction] 41.4 % 37-47 [facility] INR in Blood by Coagulation assayOrdered By: Dr. Barcenas on 09-08-2022 INR Coag (Bld) [Relative time] 1.0 {INR} [facility] Ketones Test strip Ql (U)Ord ered By: Dr. Barcenas on 09-08-2022 Ketones Ql (U) Negative Negative [facility] Laboratory - Chemistry and C hemistry - challengeOrdered By: Dr. Barcenas on 09-08-2022 ALP [Catalytic activity/Vol] 71 U/L 45-117 [facility] ALT [Catalytic activity/Vol] 9 U/L 13-56 [facility] CO2 [Moles/Vol] 30.0 mmol/L 21.0-32.0 [facility] Globulin (S) [Mass/Vol] 3.7 g/dL 2.2-4.2 [facility] Urea nitrogen/Creatinine [Mass ratio] 17.1 mg/mg 10-20 [facility] - CoagulationOrde red By: Dr. Barcenas on 09-08-2022 PT Coag (PPP) [Time] 13.6 s 11.7-14.9 [facility] - Hematology and Cell countsOrdered By: Dr. Barcenas on 09-08-2022 Erythrocyte distribution width (RBC) [Entitic vol] 44.8 fL 35.1-43.9 [facility] Erythrocyte distribution width (RBC) [Ratio] 13.2 % 11.6-14.6 [facility] Immature granulocytes/100 WBC (Bld) 0.300 % 0.0-0.9 [facility] Comment on above: IG% - Immature Granu locytes (promyelocytes, myelocytes and metamyelocytes) > 1% indicates that a LEFT SHIFT is Present. MCH (RBC) [Entitic mass] 29.9 pg 27.0-32.0 [facility] Nucleated RBC/100 WBC (Bld) [Ratio] 0 % 0-5 [facility] MCHC Auto (RBC) [Mass/Vol]Or dered By: Dr. Barcenas on 09-08-2022 MCHC (RBC) [Mass/Vol] 32.4 g/dL 32-36 [facility] Mucus LM Ql (Urine sed)Order ed By: Dr. Barcenas on 09-08-2022 Mucus Ql (Urine sed) 0 SEEN /hpf [facility] Nitrite Test strip Ql (U)Ord ered By: Dr. Barcenas on 09-08-2022 Nitrite Ql (U) Negative Negative [facility] No Panel InformationOrdered By: Dr. Barcenas on 09-08-2022 Estimated Creatinine Clearance Calc 31.23 ml/min [facility] Estimated GFR (MDRD) Amer 64 mL/min >60 [facility] Comment on above: GFR Calc Estimated GFR (MDRD) Non-Af Amer 53 mL/min >60 [facility] Comment on above: Non- GFR Calc Troponin I High Sensitivity 86 pg/mL 3.0-54.0 [facility] Comment on above: Please Note: New Evon t Units and Gender Specific Reference Ranges. For more information see Policy Stat Procedure [place] High Sensitivity Troponin (TNIH) and attachments. Platelets bldOrdered By: Dr. Barcenas on 09-08-2022 Platelets (Bld) [#/Vol] 294 10*3/uL 150-450 [facility] Protein Test strip Ql (U)Ord ered By: Dr. Barcenas on 09-08-2022 Protein Ql (U) Negative Negative [facility] Serum or plasma albumin viktoria urement (mass/volume)Ordered By: Dr. Barcenas on 09-08-2022 Albumin [Mass/Vol] 3.2 g/dL 3.2-5.0 [facility] Serum or plasma albumin/glob ulin mass ratioOrdered By: Dr. Barcenas on 09-08-2022 Albumin/Globulin [Mass ratio] 0.9 {ratio} 0.9-2.4 [facility] Serum or plasma calcium viktoria urement (mass/volume)Ordered By: Dr. Barcenas on 09-08-2022 Calcium [Mass/Vol] 8.8 mg/dL 8.5-10.1 [facility] Serum or plasma creatinine m easurement (mass/volume)Ordered By: Dr. Barcenas on 09-08-2022 Creatinine [Mass/Vol] 1.05 mg/dL 0.55-1.02 [facility] Comment on above: The validity of the calculated GFR & GFRAA in patients over 70 years has not been determined. Clinical correlation is essential. Serum or plasma urea nitroge n measurement (mass/volume)Ordered By: Dr. Barcenas on 09-08-2022 Urea nitrogen [Mass/Vol] 18 mg/dL 7-18 [facility] Squamous epithelial cells de tection in urine sediment by light microscopyOrdered By: Dr. Barcenas on 09-08-2022 Epithelial cells.squamous LM Ql (Urine sed) 0-5 SEEN /hpf 5-10 [facility] Thin prep Papanicolaou smear with manual screeningOrdered By: Dr. Barcenas on 09-08-2022 Thin prep Papanicolaou smear with manual screening 9 U/L 15-37 [facility] Thin prep Papanicolaou smear with manual screening 6 5-15 [facility] Urine blood detectionOrdered By: Dr. Barcenas on 09-08-2022 RBC Ql (U) Negative Negative [facility] RBC Ql (U) 0 SEEN /hpf 0-5 [facility] Urine clarityOrdered By: Dr. Barcenas on 09-08-2022 Clarity (U) Clear Clear [facility] Urine color determinationOrd ered By: Dr. Barcenas on 09-08-2022 Color (U) Yellow Yellow [facility] Urine glucose detectionOrder ed By: Dr. Barcenas on 09-08-2022 Glucose Ql (U) Normal mg/dl Normal [facility] Urine leukocyte esterase det ection by dipstickOrdered By: Dr. Barcenas on 09-08-2022 Leukocyte esterase Test strip Ql (U) Negative Negative [facility] Urine pHOrdered By: Dr. Moody delgado on 09-08-2022 pH (U) 6.5 [pH] 5.0 - 8.0 [facility] Urine sediment bacteria coun t by microscopy (number/high power field)Ordered By: Dr. Barcenas on 09-08-2022 Bacteria LM.HPF (Urine sed) [#/Area] 0 /[HPF] None Seen [facility] Urine specific gravity measu rementOrdered By: Dr. Barcenas on 09-08-2022 Specific gravity (U) [Rel density] 1.010 1.002-1.030 [facility] Urobilinogen Auto test strip Ql (U)Ordered By: Dr. Barcenas on 09-08-2022 Urobilinogen Ql (U) Normal mg/dl Normal [facility] Absolute lymphocyte countOrd ered By: Dr. Doran on 09-05-2022 Lymphocytes Auto (Unsp spec) [#/Vol] 1.27 10*3/uL 0.83-4.51 [facility] Basophil percentageOrdered B y: Dr. Doran on 09-05-2022 Basophils/100 WBC (Bld) 0.4 % 0-1 [facility] Chloride [Moles/Vol] 106 mmol/L 98-107 [facility] Eosinophils/100 WBC (Bld) 1.0 % 0-5 [facility] Glucose [Mass/Vol] 202 mg/dL 74-106 [facility] Comment on above: Glucose result great er than or equal to 200 mg/dLsuggests DIABETES MELLITUS per A.D.A. criteria. Neutrophils (Bld) [#/Vol] 8.3 10*3/uL 2.0-7.7 [facility] Neutrophils/100 WBC (Bld) 79.7 % 47-70 [facility] Potassium [Moles/Vol] 3.7 mmol/L 3.5-5.1 [facility] Sodium [Moles/Vol] 139 mmol/L 136-145 [facility] WBC (Bld) [#/Vol] 10.4 10*3/uL 4.4-11.0 [facility] Blood erythrocytes count (nu mber/volume)Ordered By: Dr. Doran on 09-05-2022 RBC (Bld) [#/Vol] 4.72 10*6/uL 4.2-5.4 [facility] Blood hemoglobin measurement (mass/volume)Ordered By: Dr. Doran on 09-05-2022 Hemoglobin (Bld) [Mass/Vol] 14.1 g/dL 12.0-15.0 [facility] Blood lymphocytes/100 leukoc ytesOrdered By: Dr. Doran on 09-05-2022 Lymphocytes/100 WBC (Bld) 12.3 % 19-41 [facility] Blood monocytes/100 leukocyt esOrdered By: Dr. Doran on 09-05-2022 Monocytes/100 WBC (Bld) 6.3 % 0-10 [facility] Blood platelet mean volumeOr dered By: Dr. Doran on 09-05-2022 Platelet mean volume (Bld) [Entitic vol] 11.2 fL 6.2-12.0 [facility] Determination of erythrocyte mean corpuscular volume (MCV)Ordered By: Dr. Doran on 09-05-2022 MCV (RBC) [Entitic vol] 93.9 fL 81-99 [facility] Hematocrit Auto (Bld) [Volum e fraction]Ordered By: Dr. Doran on 09-05-2022 Hematocrit (Bld) [Volume fraction] 44.3 % 37-47 [facility] INR in Blood by Coagulation assayOrdered By: Dr. Doran on 09-05-2022 INR Coag (Bld) [Relative time] 1.1 {INR} [facility] - Chemistry and C hemistry - challengeOrdered By: Dr. Doran on 09-05-2022 CO2 [Moles/Vol] 24.0 mmol/L 21.0-32.0 [facility] Urea nitrogen/Creatinine [Mass ratio] 18.3 mg/mg 10-20 [facility] - CoagulationOrde red By: Dr. Doran on 09-05-2022 PT Coag (PPP) [Time] 13.8 s 11.7-14.9 [facility] - Hematology and Cell countsOrdered By: Dr. Doran on 09-05-2022 Erythrocyte distribution width (RBC) [Entitic vol] 45.5 fL 35.1-43.9 [facility] Erythrocyte distribution width (RBC) [Ratio] 13.2 % 11.6-14.6 [facility] Immature granulocytes/100 WBC (Bld) 0.300 % 0.0-0.9 [facility] Comment on above: IG% - Immature Granu locytes (promyelocytes, myelocytes and metamyelocytes) > 1% indicates that a LEFT SHIFT is Present. MCH (RBC) [Entitic mass] 29.9 pg 27.0-32.0 [facility] Nucleated RBC/100 WBC (Bld) [Ratio] 0 % 0-5 [facility] MCHC Auto (RBC) [Mass/Vol]Or dered By: Dr. Doran on 09-05-2022 MCHC (RBC) [Mass/Vol] 31.8 g/dL 32-36 [facility] No Panel InformationOrdered By: Dr. Doran on 09-05-2022 Estimated GFR (MDRD) Amer 61 mL/min >60 [facility] Comment on above: GFR Calc Estimated GFR (MDRD) Non-Af Amer 50 mL/min >60 [facility] Comment on above: Non- GFR Calc Thyroid Stimulating Hormone (TSH) 2.84 uIU/mL 0.358-3.74 [facility] Platelets bldOrdered By: Dr. Doran on 09-05-2022 Platelets (Bld) [#/Vol] 311 10*3/uL 150-450 [facility] Serum or plasma calcium viktoria urement (mass/volume)Ordered By: Dr. Doran on 09-05-2022 Calcium [Mass/Vol] 8.8 mg/dL 8.5-10.1 [facility] Serum or plasma creatinine m easurement (mass/volume)Ordered By: Dr. Doran on 09-05-2022 Creatinine [Mass/Vol] 1.09 mg/dL 0.55-1.02 [facility] Comment on above: The validity of the calculated GFR & GFRAA in patients over 70 years has not been determined. Clinical correlation is essential. Serum or plasma urea nitroge n measurement (mass/volume)Ordered By: Dr. Doran on 09-05-2022 Urea nitrogen [Mass/Vol] 20 mg/dL 7-18 [facility] Thin prep Papanicolaou smear with manual screeningOrdered By: Dr. Doran on 09-05-2022 Thin prep Papanicolaou smear with manual screening 9 5-15 [facility] Absolute lymphocyte countOrd ered By: Dr. Doran on 08-08-2022 Lymphocytes Auto (Unsp spec) [#/Vol] 1.97 10*3/uL 0.83-4.51 [facility] Basophil percentageOrdered B y: Dr. Doran on 08-08-2022 Basophils/100 WBC (Bld) 0.5 % 0-[address] [facility] Chloride [Moles/Vol] 105 mmol/L 98-107 [facility] Eosinophils/100 WBC (Bld) 3.2 % 0-5 [facility] Glucose [Mass/Vol] 147 mg/dL 74-106 [facility] Comment on above: Fasting Glucose resu lt greater than or equal to 126 mg/dL suggests DIABETES MELLITUS per A.D.A. criteria. Neutrophils (Bld) [#/Vol] 4.6 10*3/uL 2.0-7.7 [facility] Neutrophils/100 WBC (Bld) 60.9 % 47-70 [facility] Potassium [Moles/Vol] 4.9 mmol/L 3.5-5.1 [facility] Sodium [Moles/Vol] 140 mmol/L 136-145 [facility] WBC (Bld) [#/Vol] 7.5 10*3/uL 4.4-11.0 [facility] Blood erythrocytes count (nu mber/volume)Ordered By: Dr. Doran on 08-08-2022 RBC (Bld) [#/Vol] 4.73 10*6/uL 4.2-5.4 [facility] Blood hemoglobin measurement (mass/volume)Ordered By: Dr. Doran on 08-08-2022 Hemoglobin (Bld) [Mass/Vol] 14.0 g/dL 12.0-15.0 [facility] Blood lymphocytes/100 leukoc ytesOrdered By: Dr. Doran on 08-08-2022 Lymphocytes/100 WBC (Bld) 26.2 % 19-41 [facility] Blood monocytes/100 leukocyt esOrdered By: Dr. Doran on 08-08-2022 Monocytes/100 WBC (Bld) 8.8 % 0-10 [facility] Blood platelet mean volumeOr dered By: Dr. Doran on 08-08-2022 Platelet mean volume (Bld) [Entitic vol] 10.9 fL 6.2-12.0 [facility] Determination of erythrocyte mean corpuscular volume (MCV)Ordered By: Dr. Doran on 08-08-2022 MCV (RBC) [Entitic vol] 94.1 fL 81-[address] [facility] Hematocrit Auto (Bld) [Volum e fraction]Ordered By: Dr. Doran on 08-08-2022 Hematocrit (Bld) [Volume fraction] 44.5 % 37-47 [facility] - Chemistry and C hemistry - challengeOrdered By: Dr. Doran on 08-08-2022 CO2 [Moles/Vol] 29.0 mmol/L 21.0-32.0 [facility] Cobalamin (Vitamin B12) [Mass/Vol] 853 pg/mL 211-911 [facility] Urea nitrogen/Creatinine [Mass ratio] 18.3 mg/mg 10-20 [facility] - Hematology and Cell countsOrdered By: Dr. Doran on 08-08-2022 Erythrocyte distribution width (RBC) [Entitic vol] 45.5 fL 35.1-43.9 [facility] Erythrocyte distribution width (RBC) [Ratio] 13.2 % 11.6-14.6 [facility] Immature granulocytes/100 WBC (Bld) 0.400 % 0.0-0.9 [facility] Comment on above: IG% - Immature Granu locytes (promyelocytes, myelocytes and metamyelocytes) > 1% indicates that a LEFT SHIFT is Present. MCH (RBC) [Entitic mass] 29.6 pg 27.0-32.0 [facility] Nucleated RBC/100 WBC (Bld) [Ratio] 0 % 0-5 [facility] MCHC Auto (RBC) [Mass/Vol]Or dered By: Dr. Doran on 08-08-2022 MCHC (RBC) [Mass/Vol] 31.5 g/dL 32-36 [facility] No Panel InformationOrdered By: Dr. Doran on 08-08-2022 Estimated GFR (MDRD) Amer 57 mL/min >60 [facility] Comment on above: GFR Calc Estimated GFR (MDRD) Non-Af Amer 47 mL/min >60 [facility] Comment on above: Non- GFR Calc Vitamin D 25-Hydroxy 35.5 ng/mL [facility] Comment on above: Vitamin D 25(OH) Sta tus Range Deficiency <20 ng/mL (50nmol/L) Insufficiency 20 - 30 ng/mL (50 - 75 nmol/L) Sufficiency 30 - 100 ng/mL (75 - 250 nmol/L) Toxicity >100 ng/mL (>250 nmol/L) Platelets bldOrdered By: Dr. Doran on 08-08-2022 Platelets (Bld) [#/Vol] 365 10*3/uL 150-450 [facility] Serum or plasma calcium viktoria urement (mass/volume)Ordered By: Dr. Doran on 08-08-2022 Calcium [Mass/Vol] 9.2 mg/dL 8.5-10.1 [facility] Serum or plasma creatinine m easurement (mass/volume)Ordered By: Dr. Doran on 08-08-2022 Creatinine [Mass/Vol] 1.15 mg/dL 0.55-1.02 [facility] Comment on above: The validity of the calculated GFR & GFRAA in patients over 70 years has not been determined. Clinical correlation is essential. Serum or plasma ferritin rich surement (mass/volume)Ordered By: Dr. Doran on 08-08-2022 Ferritin [Mass/Vol] 83 ng/mL 8-252 [facility] Serum or plasma urea nitroge n measurement (mass/volume)Ordered By: Dr. Doran on 08-08-2022 Urea nitrogen [Mass/Vol] 21 mg/dL 7-18 [facility] Thin prep Papanicolaou smear with manual screeningOrdered By: Dr. Doran on 08-08-2022 Thin prep Papanicolaou smear with manual screening 6 5-15 [facility] Absolute lymphocyte countOrd ered By: Dr. Doran on 06-26-2022 Lymphocytes Auto (Unsp spec) [#/Vol] 2.42 10*3/uL 0.83-4.51 [facility] Basophil percentageOrdered B y: Dr. Doran on 06-26-2022 Basophils/100 WBC (Bld) 0.5 % 0-[address] [facility] Bilirubin [Mass/Vol] 0.40 mg/dL 0.20-1.00 [facility] Comment on above: For patients on eltr ombopag therapy, use of Dimension [place] TBIL is not recommended. Chloride [Moles/Vol] 106 mmol/L 98-107 [facility] Cholesterol [Mass/Vol] 163 mg/dL <200 [facility] Comment on above: <200 mg/dL Desirable 200-240 mg/dL Borderline >240 mg/dL High Risk Eosinophils/100 WBC (Bld) 4.2 % 0-5 [facility] Glucose [Mass/Vol] 142 mg/dL 74-106 [facility] Comment on above: Fasting Glucose resu lt greater than or equal to 126 mg/dL suggests DIABETES MELLITUS per A.D.A. criteria. Neutrophils (Bld) [#/Vol] 3.9 10*3/uL 2.0-7.7 [facility] Neutrophils/100 WBC (Bld) 53.1 % 47-70 [facility] Potassium [Moles/Vol] 4.3 mmol/L 3.5-5.1 [facility] Protein [Mass/Vol] 6.9 g/dL 6.4-8.2 [facility] Sodium [Moles/Vol] 139 mmol/L 136-145 [facility] Triglyceride [Mass/Vol] 178 mg/dL <199 [facility] Comment on above: The drugs N-Acetylcy steine and Metamizole may falsely depress this assay.Serum Triglycerides Reference Interval Normal <150 mg/dL Borderline high 150 - 199 mg/dL High 200 - 499 mg/dL Very High > or = 500 mg/dL WBC (Bld) [#/Vol] 7.4 10*3/uL 4.4-11.0 [facility] Blood erythrocytes count (nu mber/volume)Ordered By: Dr. Doran on 06-26-2022 RBC (Bld) [#/Vol] 4.51 10*6/uL 4.2-5.4 [facility] Blood hemoglobin measurement (mass/volume)Ordered By: Dr. Doran on 06-26-2022 Hemoglobin (Bld) [Mass/Vol] 13.5 g/dL 12.0-15.0 [facility] Blood lymphocytes/100 leukoc ytesOrdered By: Dr. Doran on 06-26-2022 Lymphocytes/100 WBC (Bld) 32.9 % 19-41 [facility] Blood monocytes/100 leukocyt esOrdered By: Dr. Doran on 06-26-2022 Monocytes/100 WBC (Bld) 9.0 % 0-10 [facility] Blood platelet mean volumeOr dered By: Dr. Doran on 06-26-2022 Platelet mean volume (Bld) [Entitic vol] 10.2 fL 6.2-12.0 [facility] Determination of erythrocyte mean corpuscular volume (MCV)Ordered By: Dr. Doran on 06-26-2022 MCV (RBC) [Entitic vol] 92.5 fL 81-99 [facility] Hematocrit Auto (Bld) [Volum e fraction]Ordered By: Dr. Doran on 06-26-2022 Hematocrit (Bld) [Volume fraction] 41.7 % 37-47 [facility] - Chemistry and C hemistry - challengeOrdered By: Dr. Doran on 06-26-2022 ALP [Catalytic activity/Vol] 69 U/L 45-117 [facility] ALT [Catalytic activity/Vol] 13 U/L 13-56 [facility] CO2 [Moles/Vol] 29.0 mmol/L 21.0-32.0 [facility] Globulin (S) [Mass/Vol] 3.7 g/dL 2.2-4.2 [facility] Urea nitrogen/Creatinine [Mass ratio] 18.0 mg/mg 10-20 [facility] - Hematology and Cell countsOrdered By: Dr. Doran on 06-26-2022 Erythrocyte distribution width (RBC) [Entitic vol] 43.9 fL 35.1-43.9 [facility] Erythrocyte distribution width (RBC) [Ratio] 12.9 % 11.6-14.6 [facility] Immature granulocytes/100 WBC (Bld) 0.300 % 0.0-0.9 [facility] Comment on above: IG% - Immature Granu locytes (promyelocytes, myelocytes and metamyelocytes) > 1% indicates that a LEFT SHIFT is Present. MCH (RBC) [Entitic mass] 29.9 pg 27.0-32.0 [facility] Nucleated RBC/100 WBC (Bld) [Ratio] 0 % 0-5 [facility] MCHC Auto (RBC) [Mass/Vol]Or dered By: Dr. Doran on 06-26-2022 MCHC (RBC) [Mass/Vol] 32.4 g/dL 32-36 [facility] No Panel InformationOrdered By: Dr. Doran on 06-26-2022 Estimated GFR (MDRD) Amer 60 mL/min >60 [facility] Comment on above: GFR Calc Estimated GFR (MDRD) Non-Af Amer 49 mL/min >60 [facility] Comment on above: Non- GFR Calc Platelets bldOrdered By: Dr. Doran on 06-26-2022 Platelets (Bld) [#/Vol] 314 10*3/uL 150-450 [facility] Serum or plasma albumin viktoria urement (mass/volume)Ordered By: Dr. Doran on 06-26-2022 Albumin [Mass/Vol] 3.2 g/dL 3.2-5.0 [facility] Serum or plasma albumin/glob ulin mass ratioOrdered By: Dr. Doran on 06-26-2022 Albumin/Globulin [Mass ratio] 0.9 {ratio} 0.9-2.4 [facility] Serum or plasma calcium viktoria urement (mass/volume)Ordered By: Dr. Doran on 06-26-2022 Calcium [Mass/Vol] 8.8 mg/dL 8.5-10.1 [facility] Serum or plasma cholesterol in HDL measurement (mass/volume)Ordered By: Dr. Doran on 06-26-2022 Cholesterol in HDL [Mass/Vol] 47 mg/dL >40 [facility] Comment on above: The drugs N-Acetylcy steine and Metamizole may falsely depress this assay. Reference Range HDL <40 mg/dL Low HDL Cholesterol HDL >or= 60 mg/dL High HDL Cholesterol Serum or plasma cholesterol in VLDL measurement (mass/volume)Ordered By: Dr. Doran on 06-26-2022 Cholesterol in VLDL [Mass/Vol] 36 mg/dL 5-40 [facility] Serum or plasma creatinine m easurement (mass/volume)Ordered By: Dr. Doran on 06-26-2022 Creatinine [Mass/Vol] 1.11 mg/dL 0.55-1.02 [facility] Comment on above: The validity of the calculated GFR & GFRAA in patients over 70 years has not been determined. Clinical correlation is essential. Serum or plasma low density lipoprotein (LDL) cholesterol measurement (mass/volume)Ordered By: Dr. Doran on 06-26-2022 Cholesterol in LDL [Mass/Vol] 80 mg/dL 0-130 [facility] Serum or plasma urea nitroge n measurement (mass/volume)Ordered By: Dr. Doran on 06-26-2022 Urea nitrogen [Mass/Vol] 20 mg/dL 7-18 [facility] Thin prep Papanicolaou smear with manual screeningOrdered By: Dr. Doran on 06-26-2022 Thin prep Papanicolaou smear with manual screening 15 U/L 15-37 [facility] Thin prep Papanicolaou smear with manual screening 4 5-15 [facility] Absolute lymphocyte countOrd ered By: Reese Shankar on 02-11-2022 Lymphocytes Auto (Unsp spec) [#/Vol] 1.50 10*3/uL 0.83-4.51 [facility] Basophil percentageOrdered B y: Reese Shankar on 02-11-2022 Basophils/100 WBC (Bld) 0.4 % 0-1 [facility] Chloride [Moles/Vol] 102 mmol/L 98-107 [facility] Eosinophils/100 WBC (Bld) 1.7 % 0-5 [facility] Glucose [Mass/Vol] 153 mg/dL 74-106 [facility] Comment on above: Fasting Glucose resu lt greater than or equal to 126 mg/dL suggests DIABETES MELLITUS per A.D.A. criteria. Neutrophils (Bld) [#/Vol] 10.0 10*3/uL 2.0-7.7 [facility] Neutrophils/100 WBC (Bld) 79.1 % 47-70 [facility] Potassium [Moles/Vol] 3.9 mmol/L 3.5-5.1 [facility] Sodium [Moles/Vol] 138 mmol/L 136-145 [facility] WBC (Bld) [#/Vol] 12.7 10*3/uL 4.4-11.0 [facility] Blood erythrocytes count (nu mber/volume)Ordered By: eRese Shankar on 02-11-2022 RBC (Bld) [#/Vol] 4.24 10*6/uL 4.2-5.4 [facility] Blood hemoglobin measurement (mass/volume)Ordered By: Reese Shankar on 02-11-2022 Hemoglobin (Bld) [Mass/Vol] 12.8 g/dL 12.0-15.0 [facility] Blood lymphocytes/100 leukoc ytesOrdered By: Reese Shankar on 02-11-2022 Lymphocytes/100 WBC (Bld) 11.8 % 19-41 [facility] Blood monocytes/100 leukocyt esOrdered By: Reese Shankar on 02-11-2022 Monocytes/100 WBC (Bld) 6.7 % 0-10 [facility] Blood platelet mean volumeOr dered By: Reese Shankar on 02-11-2022 Platelet mean volume (Bld) [Entitic vol] 11.0 fL 6.2-12.0 [facility] Determination of erythrocyte mean corpuscular volume (MCV)Ordered By: Reese Shankar on 02-11-2022 MCV (RBC) [Entitic vol] 91.7 fL 81-99 [facility] Hematocrit Auto (Bld) [Volum e fraction]Ordered By: Reese Shankar on 02-11-2022 Hematocrit (Bld) [Volume fraction] 38.9 % 37-47 [facility] INR in Blood by Coagulation assayOrdered By: Reese Shankar on 02-11-2022 INR Coag (Bld) [Relative time] 2.7 {INR} [facility] - Chemistry and C hemistry - challengeOrdered By: Reese Shankar on 02-11-2022 CO2 [Moles/Vol] 26.0 mmol/L 21.0-32.0 [facility] Magnesium [Mass/Vol] 2.2 mg/dL 1.6-2.6 [facility] Urea nitrogen/Creatinine [Mass ratio] 18.5 mg/mg 10-20 [facility] - CoagulationOrde red By: Reese Shankar on 02-11-2022 PT Coag (PPP) [Time] 28.0 s 11.7-14.9 [facility] Laboratory - Hematology and Cell countsOrdered By: Reese Shankar on 02-11-2022 Erythrocyte distribution width (RBC) [Entitic vol] 43.5 fL 35.1-43.9 [facility] Erythrocyte distribution width (RBC) [Ratio] 12.9 % 11.6-14.6 [facility] Immature granulocytes/100 WBC (Bld) 0.300 % 0.0-0.9 [facility] Comment on above: IG% - Immature Granu locytes (promyelocytes, myelocytes and metamyelocytes) > 1% indicates that a LEFT SHIFT is Present. MCH (RBC) [Entitic mass] 30.2 pg 27.0-32.0 [facility] Nucleated RBC/100 WBC (Bld) [Ratio] 0 % 0-5 [facility] MCHC Auto (RBC) [Mass/Vol]Or dered By: Reese Shankar on 02-11-2022 MCHC (RBC) [Mass/Vol] 32.9 g/dL 32-36 [facility] No Panel InformationOrdered By: Reese Shankar on 02-11-2022 Estimated Creatinine Clearance Calc 19.31 ml/min [facility] Estimated GFR (MDRD) Amer 36 mL/min >60 [facility] Comment on above: GFR Calc Estimated GFR (MDRD) Non-Af Amer 30 mL/min >60 [facility] Comment on above: Non- GFR Calc Troponin I High Sensitivity 13 pg/mL 3.0-54.0 [facility] Comment on above: Please Note: New Evon t Units and Gender Specific Reference Ranges. For more information see Policy Stat Procedure [place] High Sensitivity Troponin (TNIH) and attachments. Platelets bldOrdered By: Dontae Shankar on 02-11-2022 Platelets (Bld) [#/Vol] 286 10*3/uL 150-450 [facility] Serum or plasma calcium viktoria urement (mass/volume)Ordered By: Reese Shankar on 02-11-2022 Calcium [Mass/Vol] 9.1 mg/dL 8.5-10.1 [facility] Serum or plasma creatinine m easurement (mass/volume)Ordered By: Reese Shankar on 02-11-2022 Creatinine [Mass/Vol] 1.73 mg/dL 0.55-1.02 [facility] Comment on above: The validity of the calculated GFR & GFRAA in patients over 70 years has not been determined. Clinical correlation is essential. Serum or plasma urea nitroge n measurement (mass/volume)Ordered By: Reese Shankar on 02-11-2022 Urea nitrogen [Mass/Vol] 32 mg/dL 7-18 [facility] Thin prep Papanicolaou smear with manual screeningOrdered By: Reese Shankar on 02-11-2022 Thin prep Papanicolaou smear with manual screening 10 5-15 [facility] CNPNon 10-14-2019 SUZIN Telephone (AGCARDPOLulú ) LISAEZRA Snell ([id number]) 1935 F Date Time Provider Department 10/14/19 [...] artery stent placement- 2006 [Z95*11/14/2015 Atherosclerosis of robinson coronary artery of na*11/14/2015 Asymptomatic cholelithiasis [K80.20] [...] by ELVER ACOSTA on 10/14/19 [facility] CNPTOBelén 10-12-2019 CNPTOUTREACH Patient Outreach ([facility]) EZRA GONZALEZ ([id number]) 1935 F Date Time Provider Department 7/14/20 SWATHI CRUZ (LEE) [facility] During your visit today, we recorded the following information about you: Swathi Cruz LPN, LPN 10/12/2019 10:48 AM Signed ED Follow Up: Patient discharged from [facility] ED on 10/11/2019 for Fall, rib fracture [...] Visit: Transition Of Care [4074] Cmt: ED [facility] 10/11/2019 (Pt. has new pcp) Reason For [...] artery stent placement- 2006 [Z95*11/14/2015 Atherosclerosis of robinson coronary artery of na*11/14/2015 Asymptomatic cholelithiasis [K80.20] [...] SWATHI CRUZ LPN on 10/12/19 [facility] OBSOLETEon 10-12-2019 OBSOLETE Refill ([facility]) LISAEZRA ([id number]) 1935 F Date Time Provider Department 10/12/19 [...] Visit date not found Patient Phone numbers: [phone] (home) Request is for script(s) to be [...] artery stent placement- 2006 [Z95*11/14/2015 Atherosclerosis of robinson coronary artery of na*11/14/2015 Asymptomatic cholelithiasis [K80.20] [...] LYNN BENEDICT LPN on 11/11/19 [facility] PROGRESSon 10-12-2019 PROGRESS HNO ID: [id number] Author: Swathi Cruz LPN Service: ? Author Type: LICENSED NURSE Type: Progress Notes Filed: 10/12/2019 10:48 AM Note Text: ED Follow Up: Patient discharged from [facility] ED on 10/11/2019 for Fall, rib fracture Outreach # 1, Contact Made. Patient was called at this time. Patient verified by name and . Patient stated she has a new PCP Dr. Sada Doran who she will follow up with. Swathi Cruz LPN 10/12/2019 10:45 AM [facility] CNPMari 10-06-2019 JAROD Telephone (ANTONIAINTMAC) EZRA GONZALEZ ([id number]) 1935 F Date Time Provider Department 10/06/19 [...] Date: 12/30/16 +++Patient gets lab draw at [facility] in [place] [phone]+++ PT INR Date Value Ref Range Status [...] (HCC) [I48.91] Order(s):PROTHROMBIN TIME/PT [SQPT] Order #: [id number] Prescriptions as of 10/06/2019 Sig: METOPROLOL SUCCINATE [...] artery stent placement- 2006 [Z95*11/14/2015 Atherosclerosis of robinson coronary artery of na*11/14/2015 Asymptomatic cholelithiasis [K80.20] [...] by BHAKTI (PHARMACIST)ESTEFANIA on 10/06/19 [facility] Bao 09-22-2019 CNPN Telephone ([facility]) EZRA GONZALEZ ([id number]) 1935 F Date Time Provider Department 09/22/19 JO PEREZ [facility] During your visit today, we recorded the following information about you: Maryanne Gomez MA 09/22/2019 10:38 AM Signed Patient is aware that you are going to be leaving the practice. She states she recently moved down to [place] and wants to find a physician closer to her Is there anyone that you recommend Maryanne Gomez MA 09/22/2019 10:37 AM Jo Perez MD 09/22/2019 12:[address] barker at [facility] Alicia Park LPN 09/22/2019 1:21 [...] Fully Assessed Reason for Visit: Patient Question [5441] Cmt: Physicans in [place] area Prescriptions as of 09/22/2019 Sig: METOPROLOL [...] artery stent placement- 2006 [Z95*11/14/2015 Atherosclerosis of robinson coronary artery of na*11/14/2015 Asymptomatic cholelithiasis [K80.20] [...] by ALICIA PARK on 09/22/19 [facility] CNPTOUTREACHon 09-22-2019 [facility] Patient Outreach ([facility]) EZRA GONZALEZ ([id number]) 1935 F Date Time Provider Department 09/22/19 MARYANNE GOMEZ) [facility] During your visit today, we recorded the following information about you: Maryanne Gomez MA 09/22/2019 10:34 AM Signed HIGH RISK CHRONIC DISEASE MONITORING - [facility] Provider Action/FYI: Patient doing well Contact made with patient: Yes Hi my name is Maryanne Gomez MA and I am calling from the [facility] on behalf of your PCP. I'm [...] to speak with a social work steam conditioner operator to help give you support for any [...] artery stent placement- 2006 [Z95*11/14/2015 Atherosclerosis of robinson coronary artery of na*11/14/2015 Asymptomatic cholelithiasis [K80.20] [...] Status:Closed by MARYANNE GOMEZ on 09/22/19 [facility] PROGRESSon 09-22-2019 PROGRESS HNO ID: [id number] Author: Maryanne Gomez Service: ? Author Type: Technician Test Systems Type: Progress Notes Filed: 09/22/2019 10:34 AM Note Text: HIGH RISK CHRONIC DISEASE MONITORING - [facility] Provider Action/FYI: Patient doing well Contact made with patient: Yes Hi my name is Maryanne Gomez MA and I am calling from the [facility] on behalf of your PCP. I'm [...] to speak with a social work steam conditioner operator to help give you support for any [...] Maryanne Gomez MA 09/22/2019 10:33 AM [facility] CNPTOUTREACHon 09-21-2019 [facility] Patient Outreach ([facility]) LISAEZRA ([id number]) 1935 F Date Time Provider Department 09/21/19 JO PEREZ [facility] During your visit today, we recorded the following information about you: Alicia Prak LPN 09/21/2019 10:43 AM Signed HIGH RISK CHRONIC DISEASE MONITORING - [facility] Provider Action/FYI: Contact made with patient: No - Left 1st message - Hi my name is Alicia Park LPN and I am calling from the [facility] on behalf of your PCP, Jo [...] artery stent placement- 2006 [Z95*11/14/2015 Atherosclerosis of robinson coronary artery of na*11/14/2015 Asymptomatic cholelithiasis [K80.20] [...] by ALICIA PARK on 09/21/19 [facility] PROGRESSon 09-21-2019 PROGRESS HNO ID: [id number] Author: Alicia Bush) Vivian Service: ? Author Type: LICENSED NURSE Type: Progress Notes Filed: 09/21/2019 10:43 AM Note Text: HIGH RISK CHRONIC DISEASE MONITORING - [facility] Provider Action/FYI: Contact made with patient: No - Left 1st message - Hi my name is Alicia Park LPN and I am calling from the [facility] on behalf of your PCP, Jo [...] Outreach. End outreach.) Outreach ended [facility] CNPMari 09-02-2019 CNPN Telephone ([place]) EZRA GONZALEZ ([id number]) 1935 F Date Time Provider Department 09/02/19 [...] Date: 12/30/16 +++[facility] [place] [phone]+++ PT INR Date Value Ref Range Status [...] [facility] in [place] next month. Order placed. Estefania Cevallos PharmD [...] (HCC) [I48.91] Order(s):PROTHROMBIN TIME/PT [SQPT] Order #: [id number] PROTHROMBIN TIME/PT [SQPT] Order #: [id number] STANDING Prescriptions as of 09/02/2019 Sig: METOPROLOL [...] artery stent placement- 2006 [Z95*11/14/2015 Atherosclerosis of robinson coronary artery of na*11/14/2015 Asymptomatic cholelithiasis [K80.20] [...] by BHAKTI (PHARMACIST)ESTEFANIA on 09/03/19 [facility] CNPTOUTREACHon 08-12-2019 [facility]LY [facility] Patient Outreach ([facility]) EZRA GONZALEZ ([id number]) 1935 F Date Time Provider Department 08/12/19 MARYANNE GOMEZ) [facility] During your visit today, we recorded the following information about you: Maryanne Gomez MA 08/12/2019 9:39 AM Signed HIGH RISK CHRONIC DISEASE MONITORING - [facility] Provider Action/FYI: Left 2nd message, will add patient to schedule for a month Contact made with patient: No, Left 2nd message - Hi my name is Maryanne Gomez MA and I am calling from the [facility] on behalf of your PCP, Jo [...] artery stent placement- 2006 [Z95*11/14/2015 Atherosclerosis of robinson coronary artery of na*11/14/2015 Asymptomatic cholelithiasis [K80.20] [...] by MARYANNE GOMEZ on 08/12/19 [facility] PROGRESSon 08-12-2019 PROGRESS HNO ID: [id number] Author: Maryanne Perea) Miguel Service: ? Author Type: Technician Test Systems Type: Progress Notes Filed: 08/12/2019 9:39 AM Note Text: HIGH RISK CHRONIC DISEASE MONITORING - [facility] Provider Action/FYI: Left 2nd message, will add patient to schedule for a month Contact made with patient: No, Left 2nd message - Hi my name is Maryanne Gomez MA and I am calling from the [facility] on behalf of your PCP, Jo [...] Maryanne Gomez MA 08/12/2019 9:38 AM [facility] CNPTOUTREACHochastity 08-11-2019 [facility] Patient Outreach ([facility]) EZRA GONZALEZ ([id number]) 1935 F Date Time Provider Department 08/11/19 MARYANNE GOMEZ) [facility] During your visit today, we recorded the following information about you: Maryanne Gomez MA 08/11/2019 10:02 AM Signed HIGH RISK CHRONIC DISEASE MONITORING - [facility] Provider Action/FYI: Left message, will add to schedule for tomorrow Contact made with patient: No - Left 1st message - Hi my name is Maryanne Gomez MA and I am calling from the [facility] on behalf of your PCP, Jo [...] artery stent placement- 2006 [Z95*11/14/2015 Atherosclerosis of robinson coronary artery of na*11/14/2015 Asymptomatic cholelithiasis [K80.20] [...] by MARYANNE GOMEZ on 08/11/19 [facility] PROGRESSon 08-11-2019 PROGRESS HNO ID: [id number] Author: Maryanne Gomez Service: ? Author Type: Technician Test Systems Type: Progress Notes Filed: 08/11/2019 10:02 AM Note Text: HIGH RISK CHRONIC DISEASE MONITORING - [facility] Provider Action/FYI: Left message, will add to schedule for tomorrow Contact made with patient: No - Left 1st message - Hi my name is Maryanne Gomez MA and I am calling from the [facility] on behalf of your PCP, Jo [...] Maryanne Gomez MA 08/11/2019 10:01 AM [facility] OBSOLETEon 08-05-2019 OBSOLETE Refill (AGCARDPOB) EZRA GONZALEZ ([id number]) 1935 F Date Time Provider Department 08/05/19 [...] artery stent placement- 2006 [Z95*11/14/2015 Atherosclerosis of robinson coronary artery of na*11/14/2015 Asymptomatic cholelithiasis [K80.20] [...] by LYNETTE OROURKE on 08/05/19 [facility] CNPTOUTREACHon 08-04-2019 [facility] Patient Outreach ([facility]) EZRA GONZALEZ ([id number]) 1935 F Date Time Provider Department 08/04/19 MARYANNE GOMEZ) [facility] During your visit today, we recorded the following information about you: Maryanne Gomez MA 08/04/2019 11:03 AM Signed HIGH RISK CHRONIC DISEASE MONITORING - [facility] Provider Action/FYI: Patient has no questions or concerns at this time Contact made with patient: Yes Hi my name is Maryanne Gomez MA and I am calling from the [facility] on behalf of your PCP. I'm [...] to speak with a social work steam conditioner operator to help give you support for any [...] artery stent placement- 2006 [Z95*11/14/2015 Atherosclerosis of robinson coronary artery of na*11/14/2015 Asymptomatic cholelithiasis [K80.20] [...] Status:Closed by MARYANNE GOMEZ on 08/04/19 [facility] PROGRESSon 08-04-2019 PROGRESS HNO ID: [id number] Author: Maryanne Gomez Service: ? Author Type: Technician Test Systems Type: Progress Notes Filed: 08/04/2019 11:03 AM Note Text: HIGH RISK CHRONIC DISEASE MONITORING - [facility] Provider Action/FYI: Patient has no questions or concerns at this time Contact made with patient: Yes Hi my name is Maryanne Gomez MA and I am calling from the [facility] on behalf of your PCP. I'm [...] to speak with a social work steam conditioner operator to help give you support for any [...] Maryanne Gomez MA 08/04/2019 11:03 AM [facility] OBSOLETEon 08-03-2019 OBSOLETE Refill (AGCARDPOB) EZRA GONZALEZ ([id number]) 1935 F Date Time Provider Department 08/03/19 [...] artery stent placement- 2006 [Z95*11/14/2015 Atherosclerosis of robinson coronary artery of na*11/14/2015 Asymptomatic cholelithiasis [K80.20] [...] KATYA WELLS CNP on 08/03/19 [facility] CNPTOUTREACHon 07-28-2019 [facility] Patient Outreach ([facility]) EZRA GONZALEZ ([id number]) 1935 F Date Time Provider Department 07/28/19 MARYANNE GOMEZ) [facility] During your visit today, we recorded the following information about you: Maryanne Gomez MA 07/28/2019 3:18 PM Signed HIGH RISK CHRONIC DISEASE MONITORING - [facility] Provider Action/FYI: Patient wants to know [...] and I am calling from the [facility] on behalf of your PCP. I'm [...] to speak with a social work steam conditioner operator to help give you support for any [...] Please report her afib episode to her contact agent (you can just route this chart to [...] use of insulin (HCC) [E11.9] Order(s):HGB A1C [TMRYN8E] Order #: [id number] FUTURE LIPID PANEL BASIC [SQLIPB] Order #: [id number] FUTURE COMP METABOLIC PANEL [SQCMP] Order #: [id number] FUTURE ALBUMIN QUANT 24H UR [SQUALBQ] Order #: [id number] FUTURE Prescriptions as of 07/28/2019 Sig: SIMVASTATIN [...] artery stent placement- 2006 [Z95*11/14/2015 Atherosclerosis of robinson coronary artery of na*11/14/2015 Asymptomatic cholelithiasis [K80.20] [...] by JO PEREZ on 07/28/19 [facility] OBSOLETEon 07-28-2019 OBSOLETE Refill (AGCARDHWG) EZRA GONZALEZ ([id number]) 1935 F Date Time Provider Department 07/28/19 [...] artery stent placement- 2006 [Z95*11/14/2015 Atherosclerosis of robinson coronary artery of na*11/14/2015 Asymptomatic cholelithiasis [K80.20] [...] ARCELIA LOCKETT CNP on 07/28/19 [facility] PROGRESSon 07-28-2019 PROGRESS HNO ID: [id number] Author: Maryanne Gomez Service: ? Author Type: Technician Test Systems Type: Progress Notes Filed: 07/28/2019 3:18 PM [...] again that she dosent find it necessary. aMryanne Gomez MA 07/28/2019 3:05 PM [facility] PROGRESS HNO ID: [id number] Author: Jo Perez Service: ? Author Type: Physician Type: Progress Notes Filed: 07/28/2019 3:18 PM Note Text: Please report her afib episode to her contact agent (you can just route this chart to [...] done prior to her visit [facility] PROGRESS HNO ID: [id number] Author: Maryanne Gomez Service: ? Author Type: Technician Test Systems Type: Progress Notes Filed: 07/28/2019 3:18 PM Note Text: HIGH RISK CHRONIC DISEASE MONITORING - [facility] Provider Action/FYI: Patient wants to know [...] and I am calling from the [facility] on behalf of your PCP. I'm [...] to speak with a social work steam conditioner operator to help give you support for any [...] Maryanne Gomez MA 07/28/2019 2:21 PM [facility] OBSOLETEon 07-14-2019 OBSOLETE Refill ([facility]) EZRA GONZALEZ ([id number]) 1935 F Date Time Provider Department 07/14/19 [facility] visit today, we recorded [...] Visit date not found Patient Phone numbers: [phone] (home) Request is for script(s) to be [...] artery stent placement- 2006 [Z95*11/14/2015 Atherosclerosis of robinson coronary artery of na*11/14/2015 Asymptomatic cholelithiasis [K80.20] [...] by JO PEREZ on 07/14/19 [facility] OBSOLETE Refill (AGCARDPOB) EZRA GONZALEZ ([id number]) 1935 F Date Time Provider Department 07/14/19 [...] artery stent placement- 2006 [Z95*11/14/2015 Atherosclerosis of robinson coronary artery of na*11/14/2015 Asymptomatic cholelithiasis [K80.20] [...] on 07/14/19 [facility] 07-12-2019 CNPN Telephone ([employer]) EZRA GONZALEZ ([id number]) 1935 F Date Time Provider Department 07/12/19 [facility] During your visit today, we recorded [...] Date: 12/30/16 +++[facility] in [place] [phone]+++ PT INR Date Value Ref Range Status [...] (HCC) [I48.91] Order(s):PROTHROMBIN TIME/PT [SQPT] Order #: [id number] Prescriptions as of 07/12/2019 Sig: LISINOPRIL 5 [...] artery stent placement- 2006 [Z95*11/14/2015 Atherosclerosis of robinson coronary artery of na*11/14/2015 Asymptomatic cholelithiasis [K80.20] [...] by BHAKTI (PHARMACIST)ESTEFANIA on 07/12/19 [facility] OBSOLETEon 07-05-2019 OBSOLETE Refill ([facility]) LISAEZRA ([id number]) 1935 F Date Time Provider Department 07/05/19 [...] Patient next appointment: 07/28/2019 Patient Phone numbers: [phone] (home) Request is for script(s) to be escript to pharmacy. MYRIAM Lovelace Delcambre 07/13/2019 11:23 AM Signed Pharmacy called to say Ranitidine was recalled and Pepcid is on backorder. Asked what we want to do as an alternative. Spoke with Dr. Perez and she said Omeprazole 20 mg once a day. Asked the pharmacy to either call the office or the patient once Pepcid is no longer on backorder per Dr. Perez. Bernarda Delcambre 07/13/2019 11:23 AM Allergies As of Date: [...] artery stent placement- 2006 [Z95*11/14/2015 Atherosclerosis of robinson coronary artery of na*11/14/2015 Asymptomatic cholelithiasis [K80.20] [...] PATITO WILSON CNP on 07/05/19 [facility] OBSOLETEon 07-01-2019 OBSOLETE Refill ([facility]) EZRA GONZALEZ ([id number]) 1935 F Date Time Provider Department 07/01/19 [...] Patient next appointment: 07/28/2019 Patient Phone numbers: [phone] (home) Request is for script(s) to be [...] artery stent placement- 2006 [Z95*11/14/2015 Atherosclerosis of robinson coronary artery of na*11/14/2015 Asymptomatic cholelithiasis [K80.20] [...] by JO PEREZ on 07/01/19 [facility] [facility] CNPMari 06-10-2019 CNPN Telephone ([facility]) EZRA GONZALEZ ([id number]) 1935 F Date Time Provider Department 06/10/19 JO PEREZ [facility] During your visit today, we recorded the [...] artery stent placement- 2006 [Z95*11/14/2015 Atherosclerosis of robinson coronary artery of na*11/14/2015 Asymptomatic cholelithiasis [K80.20] [...] SWATHI CRUZ LPN on 06/10/19 [facility] CNPN Telephone ([facility]) EZRA GONZALEZ ([id number]) 1935 F Date Time Provider Department 06/07/19 [...] Date: 12/30/16 +++Patient gets lab draw at [facility] in [place] [phone]+++ PT INR Date Value Ref Range Status [...] (HCC) [I48.91] Order(s):PROTHROMBIN TIME/PT [SQPT] Order #: [id number] Prescriptions as of 06/07/2019 Sig: COQ-10 ORAL [...] artery stent placement- 2006 [Z95*11/14/2015 Atherosclerosis of robinson coronary artery of na*11/14/2015 Asymptomatic cholelithiasis [K80.20] [...] by BHAKTI (PHARMACIST)ESTEFANIA on 06/07/19 [facility] Bao 06-04-2019 CNPN Telephone ([employer]) EZRA GONZALEZ ([id number]) 1935 F Date Time Provider Department 06/04/19 [...] artery stent placement- 2006 [Z95*11/14/2015 Atherosclerosis of robinson coronary artery of na*11/14/2015 Asymptomatic cholelithiasis [K80.20] [...] by BHAKTI (PHARMACIST)ESTEFANIA on 06/04/19 [facility] Inocencia 05-13-2019 CNOV Office Visit (AGHWW1 ) EZRA GONZALEZ ([id number]) 1935 F Date Time Provider Department 05/13/19 4:00 PM CRUZ SANCHEZ AGHWW1 During your visit today, we recorded the following information about you: Respiration Weight Height 18/minute 82.6 kg 1.613 m Cruz Sanchez MD 05/13/2019 5:00 PM Signed HISTORY OF PRESENT ILLNESS: Ezra Gonzalez is an 83-year-old hnmss-elwz-nggklkyo female who returns for follow-up right shoulder [...] 2006 - On anticoagulant therapy - On jail drug therapy - Osteoarthritis - Peripheral venous [...] [Z98.890] Order(s):Large Joint Arthro/Inj: R subacromial bursa [ADQ907] Order #: [id number] betamethasone acetate-betamethasone sodium phosphate 12 mg injection [...] artery stent placement- 2006 [Z95*11/14/2015 Atherosclerosis of robinson coronary artery of na*11/14/2015 Asymptomatic cholelithiasis [K80.20] [...] CRUZ SANCHEZ MD on 05/13/19 [facility] PROGRESSon 05-13-2019 PROGRESS HNO ID: [id number] Author: Cruz Sanchez Service: ? Author Type: Physician Type: Progress Notes Filed: 05/13/2019 5:00 PM Note Text: HISTORY OF PRESENT ILLNESS: Ezra Gonzalez is an 83-year-old jrzwy-pzmw-ovdyqjea female who returns for follow-up right shoulder [...] 2006 - On anticoagulant therapy - On jail drug therapy - Osteoarthritis - Peripheral venous [...] as needed. Cruz Sanchez MD [facility] CNOVon 04-27-2019 CN Office Visit ([facility]) EZRA GONZALEZ ([id number]) 1935 F Date Time Provider Department 04/27/19 [...] coronary artery stent placement- 2006 Atherosclerosis of Hamilton Coronary Artery of Hamilton Heart Without Angina Pectoris Asymptomatic Cholelithiasis History [...] Patito Gonzalez Podiatry 05/19/2015 End 05/19/15 Nirmal Mcfadden Justo LEPIDOPTERIST 07/07/2017 End 07/07/17 ; Mohan Álvarez Ophthalmology 07/07/2017 End 07/07/17 Rickey Duffy Bishop Cardiology 09/30/2018 End 09/30/18 ; End of Live Planning discussed including patients advanced directive wishes: Yes I am willing to follow advanced directives. Mini-Cog Patient asked to remember the following three words: Banana, [place] and Chair Visuospatial/Executiv e Functioning: Clock drawin/2 [...] No history of dysuria, frequency or incontinence SILK SCREENER: Negative for abnormal vaginal bleeding, abnormal vaginal [...] with supplements or by diet (goal of 5588-2132 mg/day - Discussed need and benefit for [...] - Discussed diabetic education issues of terminal supervisor diabetic complications, hypoglycemic symptoms, hyperglycemic symptoms, [...] prepared fairly simply. If you were a nbzp-huo-tegnigpp eater, focus on the meat more than [...] your kitchen up for success. Always have giu-xtav-cgndcrnd foods on hand ready to eat. Remove [...] unspecified type [R19.7] Order(s):ADMIN OF INFLUENZA VACCINE [I1857SQU] Order #: [id number]: 1 INFLUENZA SEASONAL HIGH DOSE AGE 65+ [58742KWW] Order #: [id number] metFORMIN (GLUCOPHAGE) 500 mg tabletTake 1 tablet by mouth daily with breakfast.Disp: Rfl: HGB A1C [YOYZB1R] Order #: [id number] FUTURE COMP METABOLIC PANEL [SQCMP] Order #: [id number] FUTURE Prescriptions as of 04/27/2019 Sig: COQ-10 [...] artery stent placement- 2006 [Z95*11/14/2015 Atherosclerosis of robinson coronary artery of na*11/14/2015 Asymptomatic cholelithiasis [K80.20] [...] prepared fairly simply. If you were a lchb-tlw-rhjjghmg eater, focus on the meat more than [...] your kitchen up for success. Always have gxs-bboa-ajcwezcf foods on hand ready to eat. Remove [...] Reduced-sodium soy sauce or [facility] Al[facility] sauce Artichoke hearts Sugar substitutes Olives Oils [...] by JO PEREZ on 04/27/19 [facility] PROGRESSon 04-27-2019 PROGRESS HNO ID: [id number] Author: Jo Perez Service: ? Author Type: [...] coronary artery stent placement- 2006 Atherosclerosis of Hamilton Coronary Artery of Hamilton Heart Without Angina Pectoris Asymptomatic Cholelithiasis History [...] Gonzalez Podiatry 05/19/2015 End 05/19/15 Nirmal Kemp LEPIDOPTERIST 07/07/2017 End 07/07/17 ; Mohan Álvarez Ophthalmology 07/07/2017 End 07/07/17 Rickey Chavarria Cardiology 09/30/2018 End 09/30/18 ; End of Live Planning discussed including patients advanced directive wishes: Yes I am willing to follow advanced directives. Mini-Cog Patient asked to remember the following three words: Banana, [place] and Chair Visuospatial/Executiv e Functioning: Clock drawin/2 [...] No history of dysuria, frequency or incontinence SILK SCREENER: Negative for abnormal vaginal bleeding, abnormal vaginal [...] with supplements or by diet (goal of 1285-6657 mg/day - Discussed need and benefit for [...] - Discussed diabetic education issues of terminal supervisor diabetic complications, hypoglycemic symptoms, hyperglycemic symptoms, [...] Lipid panel Jo Perez MD [facility] 03-18-2019 [facility] Office Visit (AGHWW1 ) EZRA GONZALEZ ([id number]) 1935 F Date Time Provider Department 03/18/19 4:00 PM CRUZ SANCHEZ AGHWW1 During your visit today, we recorded the following information about you: Respiration Weight Height 17/minute 80.7 kg 1.651 m Cruz Sanchez MD 03/18/2019 7:00 PM Signed HISTORY OF PRESENT ILLNESS: Ezra Gonzalez is an 83-year-old emvfs-gomo-hhxugktt female who returns for follow-up right shoulder [...] and strength with continued physical therapy in [place]. She is currently using the yellow to [...] - On anticoagulant therapy - On terminal supervisor drug therapy - Osteoarthritis - Peripheral [...] artery stent placement- 2006 [Z95*11/14/2015 Atherosclerosis of robinson coronary artery of na*11/14/2015 Asymptomatic cholelithiasis [K80.20] [...] CRUZ SANCHEZ MD on 03/18/19 [facility] PROGRESSon 03-18-2019 PROGRESS HNO ID: [id number] Author: Cruz Sanchez Service: ? Author Type: Physician Type: Progress Notes Filed: 03/18/2019 7:00 PM Note Text: HISTORY OF PRESENT ILLNESS: Ezra Gonzalez is an 83-year-old vkdla-wgku-ddouwrhn female who returns for follow-up right shoulder [...] and strength with continued physical therapy in [place]. She is currently using the yellow to [...] 2006 - On anticoagulant therapy - On jail drug therapy - Osteoarthritis - Peripheral venous [...] as needed. Cruz Sanchez MD [facility] OBSOLETEon 03-17-2019 OBSOLETE Refill ([facility]) EZRA GONZALEZ ([id number]) 1935 F Date Time Provider Department 03/17/19 VIPUL BUCHANAN ([facility]) [facility] During your visit today, we recorded [...] Visit date not found Patient Phone numbers: [phone] (home) Request is for script(s) to be [...] artery stent placement- 2006 [Z95*11/14/2015 Atherosclerosis of robinson coronary artery of na*11/14/2015 Asymptomatic cholelithiasis [K80.20] [...] by JO PEREZ on 03/18/19 [facility] OBSOLETE Refill (AGC) EZRA GONZALEZ ([id number]) 1935 F Date Time Provider Department 03/17/19 JO PEREZ [facility] During your visit today, we recorded the following information about you: Anne Marie Morrison 03/18/2019 7:41 AM Signed Pharmacy faxed requesting the following refill. Pending Prescriptions Disp Refills RANITIDINE 150 MG TABLET 90 tablet 0 Sig: TAKE ONE TABLET BY MOUTH EVERY DAY SHAHEEN: Yes Last refill: 12/16/2018 Patient last appointment: 09/30/2018 Patient next appointment: 04/02/2019 Patient Phone numbers: [phone] (home) Request is for script(s) to be [...] artery stent placement- 2006 [Z95*11/14/2015 Atherosclerosis of robinson coronary artery of na*11/14/2015 Asymptomatic cholelithiasis [K80.20] [...] by JO PEREZ on 03/18/19 [facility] 02-04-2019 CNOV Office Visit (AGHWW1 ) EZRA GONZALEZ ([id number]) 1935 F Date Time Provider Department 02/04/19 1:30 PM CRUZ SANCHEZ AGHWW1 During your visit today, we recorded the following information about you: Respiration Weight Height 17/minute 80.7 kg 1.676 m Cruz Sanchez MD 02/04/2019 4:40 PM Signed HISTORY OF PRESENT ILLNESS: Ezra Gonzalez was provided orthopedic evaluation regarding right shoulder complaints. Patient is an 83-year-old vucjq-qrci-rsotgnjb female who is previously known status post [...] 2006 - On anticoagulant therapy - On jail drug therapy - Osteoarthritis - Peripheral venous [...] GENERAL 3V OR MORE AP/TRUE AP/OTHER RT [3323456] Order #: [id number] CONSULT TO PHYSICAL THERAPY (AG) [2167297] Order #: [id number]: 1 DRAIN/INJECT LARGE JOINT/BURSA [15670GLC] Order #: [id number] [] betamethasone acetate-betamethasone sodium phosphate 12 mg [...] stent placement- 2006 [Z95*INVALID FOR* Atherosclerosis of robinson coronary artery of na*INVALID FOR* Asymptomatic cholelithiasis [...] CRUZ SANCHEZ MD on 02/04/19 [facility] PROGRESSon 02-04-2019 PROGRESS HNO ID: [id number] Author: Cruz Sanchez Service: ? Author Type: Physician Type: Progress Notes Filed: 02/04/2019 4:40 PM Note Text: HISTORY OF PRESENT ILLNESS: Ezra Gonzalez was provided orthopedic evaluation regarding right shoulder complaints. Patient is an 83-year-old plhtf-sdxf-yxgxeelr female who is previously known status post [...] - On anticoagulant therapy - On terminal supervisor drug therapy - Osteoarthritis - Peripheral [...] medical candidate. Cruz Sanchez MD [facility] OBSOLETEon 01-21-2019 OBSOLETE Refill (AGCARDPOB) EZRA GONZALEZ ([id number]) 1935 F Date Time Provider Department 01/21/19 [...] stent placement- 2006 [Z95*INVALID FOR* Atherosclerosis of robinson coronary artery of na*INVALID FOR* Asymptomatic cholelithiasis [...] RICKEY CHAVARRIA MD on 01/21/19 [facility] OBSOLETE Refill (AGMPC) LISAEZRA ([id number]) 1935 F Date Time Provider Department 01/21/19 [...] Patient next appointment: 04/02/2019 Patient Phone numbers: [phone] (home) Request is for script(s) to be [...] stent placement- 2006 [Z95*INVALID FOR* Atherosclerosis of robinson coronary artery of na*INVALID FOR* Asymptomatic cholelithiasis [...] by JO PEREZ on 01/21/19 [facility] CNTHERAPYon 12-14-2018 CNTHERAPY OT/PT/Speech Visit (AKSTWP) LISAEZRA Alis ([id number]) 1935 F Date Time Provider Department 12/14/18 11:00 AM ANOOP COLLAZO (AUD) AKSTWP Date Time Provider Department Center 12/14/2018 11:00 AM [id number]-SZMPWVOANOOP COLLAZO*AKSTWP NOLAN LONG Reason for Visit: Difficulty [...] Reviewed: 11/27/2018 Reviewed by: Vika CastroNorristown State HospitalFinesse Torres - Fully Assessed Prescriptions as [...] Jazmyn Hinson, AUD 12/14/2018 4:44 PM Signed [facility] OUTPATIENT AUDIOLOGY SERVICES AUDIOLOGIC EVALUATION REPORT 12/14/2018 Page 1 of 3 Patient: Ezra Gonzalez : 1935 Referred by: Jo Perez (PCP: Yazmin) Referred for: Evaluation of suspected change in hearing, tinnitus, or balance. Referral documented: In an order in [facility]: OTHER ORDERS: : CONSULT TO AUDIOLOGY FOR DIAGNOSTIC TESTING [9003] (Order [id number]) Patient's major complaints: Progressively increasing difficulty in [...] --Pure tone audiometry using insert earphones demonstrates cyfk-kl-ewrdvxhtfc severe level sensorineural type hearing loss, worse [...] up w/ referring physician. Report routed via Setred inbox to Dr. Perez on 12/14/2018 -Re-evaluation [...] Audiogram can be also be viewed in [employer] SmartForms:Audiology: Audiometry. OAE and tympanometry results can be viewed in [employer] Scanned Documents. RIGHT EAR Hearing Sensitivity: 250-500HZ: WNL; 750-2000Hz:mild; 3000-8000Hz: moderate-severe SNHL Word Recognition Score (order by difficulty 10 word list): Excellent (90%) at slt amplified loudness (fair at conversational loudness) Tympanometry: Type A : Normal ME function. Otoacoustic Emissions results: 750-3000Hz: WNL; 3193-4849: reduced; 8000Hz: absent. LEFT EAR Hearing Sensitivity: 250-500HZ: WNL; 750-3000Hz: moderate; 6000-8000Hz: severe SNHL Word Recognition Score (order by difficulty 10 word list): Excellent (90%) at amplified loudness (poor at conversational loudness) Tympanometry: Type A : Normal ME function. Otoacoustic Emissions results: 750-1000Hz: absent; 1013-9433: reduced; 6000-8000Hz: absent. William Hinson. Family Preservation Caseworker 12/14/2018 3:30 PM Ezra Gonzalez : 1935 [...] during this visit: Audiometry Letter Text Normal [facility] OBSOLETEon 12-14-2018 OBSOLETE Refill ([facility]) EZRA GONZALEZ ([id number]) 1935 F Date Time Provider Department 12/14/18 JO PEREZ [facility] During your visit today, we recorded the following information about you: Robert Diaz CMA 12/16/2018 1:00 PM Signed Patient called requesting the following refill. Pending Prescriptions Disp Refills RANITIDINE 150 MG TABLET 90 tablet 0 Sig: TAKE ONE TABLET BY MOUTH EVERY DAY SHAHEEN: Yes Last refill: 09/16/2018 Patient last appointment: 10/20/2018 Patient next appointment: 04/02/2019 Patient Phone numbers: [phone] (home) Request is for script(s) to be [...] Reviewed: 11/27/2018 Reviewed by: Vika CastroNorristown State HospitalFinesse Torres - Fully Assessed Reason for [...] stent placement- 2006 [Z95*INVALID FOR* Atherosclerosis of robinson coronary artery of na*INVALID FOR* Asymptomatic cholelithiasis [...] by JO PEREZ on 12/16/18 [facility] PROGRESSon 12-14-2018 PROGRESS HNO ID: [id number] Author: JAZMYN Hinson (Aud) Service: ? Author Type: Family Preservation Caseworker Type: Progress Notes Filed: 12/14/2018 4:44 PM Note Text: [facility] OUTPATIENT AUDIOLOGY SERVICES AUDIOLOGIC EVALUATION REPORT 12/14/2018 Page 1 of 3 Patient: Ezra Gonzalez : 1935 Referred by: Jo Perez (PCP: Yazmin) Referred for: Evaluation of suspected change in hearing, tinnitus, or balance. Referral documented: In an order in [facility]: OTHER ORDERS: : CONSULT TO AUDIOLOGY FOR DIAGNOSTIC TESTING [9003] (Order [id number]) Patient's major complaints: Progressively increasing difficulty in [...] --Pure tone audiometry using insert earphones demonstrates rhaz-fp-fijvkilaau severe level sensorineural type hearing loss, worse [...] up w/ referring physician. Report routed via Setred inbox to Dr. Perez on 12/14/2018 -Re-evaluation [...] Audiogram can be also be viewed in [employer] SmartForms:Audiology: Audiometry. OAE and tympanometry results can be viewed in [employer] Scanned Documents. RIGHT EAR Hearing Sensitivity: 250-500HZ: WNL; 750-2000Hz:mild; 3000-8000Hz: moderate-severe SNHL Word Recognition Score (order by difficulty 10 word list): Excellent (90%) at slt amplified loudness (fair at conversational loudness) Tympanometry: Type A : Normal ME function. Otoacoustic Emissions results: 750-3000Hz: WNL; 4344-9951: reduced; 8000Hz: absent. LEFT EAR Hearing Sensitivity: 250-500HZ: WNL; 750-3000Hz: moderate; 6000-8000Hz: severe SNHL Word Recognition Score (order by difficulty 10 word list): Excellent (90%) at amplified loudness (poor at conversational loudness) Tympanometry: Type A : Normal ME function. Otoacoustic Emissions results: 750-1000Hz: absent; 6874-2726: reduced; 6000-8000Hz: absent. William Hinson. Family Preservation Caseworker 12/14/2018 3:30 PM Ezra Gonzalez : 1935 Page 3 of 3 GARCÍA Abbreviation Definition Degree of hearing sensitivity dB range WNL within normal limits WNL 0 - 20 SNHL sensorineural hearing loss Mild 20-40 CHL conductive hearing loss Moderate 40-55 MHL mixed hearing loss Moderately-Severe 55-70 ME middle ear Severe 70-90 OAE Distortion Product Otoacoustic Emissions Profound 90 + TM tympanic membrane Normal [facility] CNOVon 11-27-2018 CNOV Office Visit (AGCARDHWW) EZRA GONZALEZ ([id number]) 1935 F Date Time Provider Department 11/27/18 11:00 AM RICKEY CHAVARRIA AGCARDHWW During your visit today, we recorded the following information about you: Pulse Respiration Blood pressure Weight 66/minute 18/minute 124/70 80.7 kg Height 1.575 m Vika MYRIAM Torres 11/27/2018 11:00 AM Signed Patient has no cardiac complaints today. Vika Chavarria MD 11/27/2018 11:24 AM Signed PRIMARY CARE PHYSICIAN: Jo Perez MD [address] [facility] [address] [place] [address] HISTORY OF PRESENT ILLNESS: Ms. Gonzalez is [...] of the time was spent in direct, sfnt-pm-upjr, contact with the patient for management and [...] Reviewed: 11/27/2018 Reviewed by: Vika CastroNorristown State HospitalFinesse Torres - Fully Assessed Reason for Visit: CARD Follow Up Annual [1232] Primary Visit Diagnosis:Essential hypertension [I10] Other Visit Diagnoses:Obesity, Class I, BMI 30-34.9 [E66.9] Mixed hyperlipidemia [E78.2] Paroxysmal atrial fibrillation (HCC) [I48.0] Chronic anticoagulation [Z79.01] Order(s):ECG B/O W INTERP (MED OFFICE) [ECG06] Order #: [id number] Prescriptions as of 11/27/2018 Sig: SIMVASTATIN 20 [...] stent placement- 2006 [Z95*INVALID FOR* Atherosclerosis of robinson coronary artery of na*INVALID FOR* Asymptomatic cholelithiasis [...] has no cardiac complaints today. Vika Torres [facility] Disposition: Return in about 1 year (around 11/28/2019). Follow-up and Disposition History Recorded Letter Text Encounter Status:Closed by RICKEY CHAVARRIA MD on 11/27/18 [facility] PROGRESSon 11-27-2018 PROGRESS HNO ID: [id number] Author: Rickey Chavarria Service: ? Author Type: Physician Type: Progress Notes Filed: 11/27/2018 11:24 AM Note Text: PRIMARY CARE PHYSICIAN: Jo Perez MD [address] [place] [address] HISTORY OF PRESENT ILLNESS: Ms. Gonzalez is [...] of the time was spent in direct, jzuv-lf-dpeq, contact with the patient for management and counseling. 1. Essential hypertension - ICD9: 401.9, ICD10: I10 (primary diagnosis) 2. Obesity, Class I, BMI 30-34.9 - ICD9: 278.00, ICD10: E66.9 3. Mixed hyperlipidemia - ICD9: 272.2, ICD10: E78.2 4. Paroxysmal atrial fibrillation (HCC) - ICD9: 427.31, ICD10: I48.0 5. Chronic anticoagulation - ICD9: V58.61, ICD10: Z79.[address] [facility] Normal [facility] BONE DENSITY STUDY BY XRAY 7 7080on 07-15-2017 BONE DENSITY STUDY BY XRAY 06124 Performed at [facility] APPROVED BY: Kemar Adams MD EXAMINATION: BONE MINERAL DENSITOMETRY (DEXA SCAN) EXAM DATE: 07/15/2017 09:43 CLINICAL INDICATION: 82-year-old postmenopausal female , follow-up osteoporosis screening. COMPARISON: DEXA scan 10/06/2013. DXA W-[place] v.13.4 examination is performed on the lumbar [...] is a trademark of the [employer]'s [facility], a WHO Collaborating [place]. This applies to men over 50 and [...] high risk for accelerated bone loss). Normal [facility] MAMMOGRAM SCREENING WITH CAD IF PERFORMEDon 06-27-2017 MAMMOGRAM SCREENING WITH CAD IF PERFORMED Performed at [facility] APPROVED BY: Lucas Garrido MD #[id number] - MAMMOGRAM SCREENING WITH CAD IF PERFORMEDBILATERAL DIGITAL SCREENING MAMMOGRAM WITH CAD WITH MEDIOLATERAL OBLIQUE CRANIOCAUDAL: 06/27/2017CLINICAL: Routine screening mammogram. Patient reports no breast problems. Comparison is made to exams dated: 07/22/2016 mammogram - [facility], 06/26/2016 mammogram, 06/09/2015 mammogram, and 04/01/2014 mammogram - [facility]. There are scattered fibroglandular elements in [...] notified of the results. Lucas myers/penrad:06/27/2017 11:38:04 Air Compressor Operator: Loan Summers)(M), [facility] Normal Birad 1 or 2 Mammogram BI-RADS: 1 Negative Normal [facility] Otheron 02-03-2015 CONVERTED CLINICAL HISTORY OPERATIVE PROCEDURE: Colonoscopy CLINICAL INFORMATION: Screening [facility] CONVERTED ELECTRONIC SIGNATURE MO PATRICK M.D., PATHOLOGIST (Electronic signature on file) Final Signed Out: 02/03/2015 12:44 [facility] CONVERTED FINAL DIAGNOSIS FINAL DIAGNOSI S: A) COLON, ASCENDING, BIOPSIES - FRAGMENTS OF TUBULAR ADENOMA. B) COLON, RANDOM BIOPSIES - NO PATHOLOGIC ABNORMALITIES. [facility] CONVERTED GROSS DESCRIPTION GROSS DESCRIPTION: A) [...] totally submitted in cassette B x 3. SMS:[facility] CONVERTED ORDERING PROVIDER Ordering Provider: SHI LESTER [facility] Otheron 04-19-2010 CONVERTED ELECTRONIC SIGNATURE RAVINDER HAN, M.D., PATHOLOGIST (Electronic signature on file) Final Signed Out: 04/19/2010 14:33 [facility] CONVERTED FINAL DIAGNOSIS FINAL DIAGNOSI S: RIGHT SHOULDER, EXCISION - BONE AND ATTACHED CARTILAGE WITH DEGENERATIVE CHANGES. SYNOVIUM WITH NONSPECIFIC REACTIVE CHANGES AND FOCAL MILD CHRONIC INFLAMMATION. SPECIMEN: SHOULDER [facility] CONVERTED GROSS DESCRIPTION GROSS DESCRIPTION: Rt shoulder tissue The container is labeled right shoulder tissue. Received are portions of pink-montague soft tissue and red-montague bone measuring 3 x 3 x 1 cm in aggregate. Sample of soft tissue is submitted in cassette 1, sample of bone is submitted in cassette 2 following decal. SMS/lrs MICROSCOPIC DESCRIPTION: Slides reviewed. 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 SPECIMEN: FEMORAL HEAD [facility] CONVERTED GROSS DESCRIPTION GROSS DESCRIPTION: Left [...] decal. SMS:ATP:hlm MICROSCOPIC DESCRIPTION: Slides reviewed. SDS/gpl [facility] CONVERTED ORDERING PROVIDER Ordering Provider: CLOTILDE DOSS [facility] Thyroidon 08-02-2009 TSH Qn KVNG TYLER M.D., PATHOLOGIST (Electronic signature on file) Final Signed Out: 08/02/2009 14:47 [facility]acon 05-11-2001 Cholesterol [Mass/Vol] Ordering Provider : SAE RESENDIZ [facility] Otheron 05-11-2001 CONVERTED ELECTRONIC SIGNATURE MICHAEL HAWTHORNE M.D., PATHOLOGIST (Electronic signature on file) Final Signed Out: 05/11/2001 11:39 [facility] CONVERTED FINAL DIAGNOSIS TISSUE, REMOVE D AT RELEASE OF RIGHT RING FINGER - FIBROCOLLAGENOUS TISSUE WITH FOCAL FIBROBLASTIC REACTION AND FOCAL MIXOID CHANGE. ATTACHED SMALL AMOUNT OF TISSUE CONSISTENT WITH SYNOVIUM. [facility] Vital Signs Date Time Vital Sign Value Performing Clinician Facility 11-22-2024 07:12-0400 Body height 160.[address] Alexandra Hagen MD Work Phone: [phone] [place] [address] 11-22-2024 07:12-0400 Body mass index (BMI) [Ratio] 30.8 kg/m2 Dr. Alexandra Hagen MD Work Phone: 8(072)358-123090 [address] 11-22-2024 07:12-0400 Body weight 78.[address] Alexandra Hagen MD Work Phone: 6(876)290-384577 [place] [address] 11-22-2024 07:12-0400 Diastolic blood pressure 80 mm[Hg] Dr. Alexandra Hagen MD Work Phone: 2(257)827-486190 [address] 11-22-2024 07:12-0400 Heart rate 84 /min Dr. Alexandra Hagen MD Work Phone: 1(738)064-098990 [address] 11-22-2024 07:12-0400 Respiratory rate 20 /min Dr. Alexandra Hagen MD Work Phone: 4(108)019-615777 [place] [address] 11-22-2024 07:12-0400 SaO2% (BldA) [Mass fraction] 95 % Dr. Alexandra Hagen MD Work Phone: 6(900)409-052490 [address] 11-22-2024 07:12-0400 Systolic blood pressure 125 mm[Hg] Dr. Alexandra Hagen MD Work Phone: 5(274)494-778937 [place] [address] 09-13-2024 14:00-0400 Body height 160.[address] Alexandra Hagen MD Work Phone: 3(444)177-377777 [place] [address] 09-13-2024 14:00-0400 Body mass index (BMI) [Ratio] 30.7 kg/m2 Dr. Alexandra Hagen MD Work Phone: 3(819)493-778337 [place] [address] 09-13-2024 14:00-0400 Body temperature 92.6 [degF] Dr. Alexandra Hagen MD Work Phone: [facility] 09-13-2024 14:00-0400 Body weight 78.[address] Alexandra Hagen MD Work Phone: 5(012)493-631437 [place] [address] 09-13-2024 14:00-0400 Diastolic blood pressure 79 mm[Hg] Dr. Alexandra Hagen MD Work Phone: 3(913)184-934977 [place] [address] 09-13-2024 14:00-0400 Heart rate 83 /min Dr. Alexandra Hagen MD Work Phone: 4(629)412-568337 [place] [address] 09-13-2024 14:00-0400 Respiratory rate 17 /min Dr. Alexandra Hagen MD Work Phone: 7(124)330-953377 [place] [address] 09-13-2024 14:00-0400 SaO2% (BldA) [Mass fraction] 97 % Dr. Alexandra Hagen MD Work Phone: 2(239)231-649577 [place] [address] 09-13-2024 14:00-0400 Systolic blood pressure 126 mm[Hg] Dr. Alexandra Hagen MD Work Phone: 2(102)251-519377 [place] [address] 09-11-2024 13:55-0400 Body mass index (BMI) [Ratio] 30.3 kg/m2 Dr. Alexandra Hagen MD Work Phone: 0(724)575-977477 [place] [address] 09-11-2024 09:09-0400 Body temperature 97.8 [degF] Dr. Alexandra Hagen MD Work Phone: 0(698)884-540477 [place] [address] 09-11-2024 09:09-0400 Diastolic blood pressure 85 mm[Hg] Dr. Alexandra Hagen MD Work Phone: 2(478)881-093977 [place] [address] 09-11-2024 09:09-0400 Heart rate 84 /min Dr. Alexandra Hagen MD Work Phone: 9(245)499-545477 [place] [address] 09-11-2024 09:09-0400 Respiratory rate 18 /min Dr. Alexandra Hagen MD Work Phone: 2(776)439-615877 [place] [address] 09-11-2024 09:09-0400 SaO2% (BldA) [Mass fraction] 98 % Dr. Alexandra Hagen MD Work Phone: 3(244)568-548537 [place] [address] 09-11-2024 09:09-0400 Systolic blood pressure 174 mm[Hg] Dr. Alexandra Hagen MD Work Phone: 7(174)007-184577 [place] [address] 09-10-2024 17:17-0400 Body height 160.[address] Alexandra Hagen MD Work Phone: 3(533)435-200977 [place] [address] 09-10-2024 17:17-0400 Body weight 77.[address] Alexandra Hagen MD Work Phone: 6(033)820-132477 [place] [address] 09-10-2024 16:30-0400 Diastolic blood pressure 73 mm[Hg] Dr. Alexandra Hagen MD Work Phone: 6(839)270-250177 [place] [address] 09-10-2024 16:30-0400 Heart rate 79 /min Dr. Alexandra Hagen MD Work Phone: 8(943)776-210577 [place] [address] 09-10-2024 16:30-0400 Respiratory rate 20 /min Dr. Alexandra Hagen MD Work Phone: 7(552)936-326477 [place] [address] 09-10-2024 16:30-0400 SaO2% (BldA) [Mass fraction] 93 % Dr. Alexandra Hagen MD Work Phone: 2(909)346-295877 [place] [address] 09-10-2024 16:30-0400 Systolic blood pressure 118 mm[Hg] Dr. Alexandra Hagen MD Work Phone: 7(297)264-145377 [place] [address] 09-10-2024 16:07-0400 Body temperature 98.3 [degF] Dr. Alexandra Hagen MD Work Phone: 5(302)779-440477 [place] [address] 09-10-2024 14:19-0400 Body height 160.[address] Alexandra Hagen MD Work Phone: 3(876)171-367377 [place] [address] 09-10-2024 14:19-0400 Body mass index (BMI) [Ratio] 26.5 kg/m2 Dr. Alexandra Hagen MD Work Phone: 5(562)304-705877 [place] [address] 09-10-2024 14:19-0400 Body weight 68.[address] Alexandra Hagen MD Work Phone: 0(633)817-173237 [place] [address] 09-08-2024 15:30-0400 Heart rate 64 /min Dr. Alexandra Hagen MD Work Phone: 5(421)768-913477 [place] [address] 09-08-2024 15:30-0400 Respiratory rate 23 /min Dr. Alexandra Hagen MD Work Phone: 8(619)222-671077 [place] [address] 09-08-2024 15:30-0400 SaO2% (BldA) [Mass fraction] 97 % Dr. Alexandra Hagen MD Work Phone: 5(001)123-992677 [place] [address] 09-08-2024 12:22-0400 Body height 160.[address] Alexandra Hagen MD Work Phone: 3(712)943-866677 [place] [address] 09-08-2024 12:22-0400 Body mass index (BMI) [Ratio] 33.5 kg/m2 Dr. Alexandra Hagen MD Work Phone: 9(561)499-716477 [place] [address] 09-08-2024 12:22-0400 Body temperature 98 [degF] Dr. Alexandra Hagen MD Work Phone: 4(331)357-653777 [place] [address] 09-08-2024 12:22-0400 Body weight 85.[address] Alexandra Hagen MD Work Phone: 0(068)681-783177 [place] [address] 09-08-2024 12:22-0400 Diastolic blood pressure 70 mm[Hg] Dr. Alexandra Hagen MD Work Phone: 5(944)673-540077 [place] [address] 09-08-2024 12:22-0400 Systolic blood pressure 131 mm[Hg] Dr. Alexandra Hagen MD Work Phone: 8(871)532-207177 [place] [address] 07-01-2024 10:38-0400 Body height 160.[address] Alexandra Hagen MD Work Phone: 5(521)549-474177 [place] [address] 07-01-2024 10:38-0400 Body mass index (BMI) [Ratio] 30.8 kg/m2 Dr. Alexandra Hagen MD Work Phone: 7(101)302-892177 [place] [address] 07-01-2024 10:38-0400 Body weight 78.[address] Alexandra Hagen MD Work Phone: [facility] 07-01-2024 10:38-0400 Diastolic blood pressure 85 mm[Hg] Dr. Alexandra Hagen MD Work Phone: [facility] 07-01-2024 10:38-0400 Heart rate 60 /min Dr. Alexandra Hagen MD Work Phone: [facility] 07-01-2024 10:38-0400 Respiratory rate 16 /min Dr. Alexandra Hagen MD Work Phone: [facility] 07-01-2024 10:38-0400 Systolic blood pressure 184 mm[Hg] Dr. Alexandra Hagen MD Work Phone: [facility] 05-10-2024 14:35-0500 Body height 160.[address] Alexandra Hagen MD Work Phone: 3(356)821-518437 [place] [address] 05-10-2024 14:35-0500 Body mass index (BMI) [Ratio] 30.9 kg/m2 Dr. Alexandra Hagen MD Work Phone: [facility] 05-10-2024 14:35-0500 Body temperature 97.8 [degF] Dr. Alexandra Hagen MD Work Phone: [facility] 05-10-2024 14:35-0500 Body weight 79.[address] Alexandra Hagen MD Work Phone: [facility] 05-10-2024 14:35-0500 Diastolic blood pressure 86 mm[Hg] Dr. Alexandra Hagen MD Work Phone: [facility] 05-10-2024 14:35-0500 Heart rate 75 /min Dr. Alexandra Hagen MD Work Phone: [facility] 05-10-2024 14:35-0500 Respiratory rate 16 /min Dr. Alexandra Hagen MD Work Phone: [facility] 05-10-2024 14:35-0500 SaO2% (BldA) [Mass fraction] 94 % Dr. Alexandra Hagen MD Work Phone: [facility] 05-10-2024 14:35-0500 Systolic blood pressure 140 mm[Hg] Dr. Alexandra Hagen MD Work Phone: [facility] 06-20-2023 11:10-0400 Diastolic blood pressure 92 mm[Hg] Sae Conde MD Work Phone: [facility] 06-20-2023 11:10-0400 Heart rate 88 /min Sae Conde MD Work Phone: [facility] 06-20-2023 11:10-0400 Systolic blood pressure 173 mm[Hg] Sae Conde MD Work Phone: [facility] 06-20-2023 05:34-0400 Body temperature 97.39 [degF] Sae Conde MD Work Phone: [facility] 06-20-2023 05:34-0400 Respiratory rate 20 /min Sae Conde MD Work Phone: [facility] 06-20-2023 05:34-0400 SaO2% (BldA) [Mass fraction] 95 % Sae Conde MD Work Phone: [facility] 06-17-2023 18:30-0400 Body height 160 cm Sae Conde MD Work Phone: [facility] 06-17-2023 18:30-0400 Body mass index (BMI) [Ratio] 30.83 kg/m2 Sae Conde MD Work Phone: [facility] 06-17-2023 18:30-0400 Body weight 78.93 kg Sae Conde MD Work Phone: [facility] 06-16-2023 11:02-0400 Body temperature 96.4 [degF] Dr. Rosemary Doran Work Phone: [facility] 06-16-2023 11:02-0400 Diastolic blood pressure 84 mm[Hg] Dr. Rosemary Doran Work Phone: [facility] 06-16-2023 11:02-0400 Heart rate 72 /min Dr. Rosemary Doran Work Phone: [facility] 06-16-2023 11:02-0400 Respiratory rate 16 /min Dr. Rosemary Doran Work Phone: [facility] 06-16-2023 11:02-0400 SaO2% (BldA) [Mass fraction] 96 % Dr. Rosemary Doran Work Phone: [facility] 06-16-2023 11:02-0400 Systolic blood pressure 157 mm[Hg] Dr. Rosemary Doran Work Phone: [facility] 06-16-2023 08:33-0400 Body height 160.[address] Rosemary Doran Work Phone: [facility] 06-16-2023 08:33-0400 Body mass index (BMI) [Ratio] 33.1 kg/m2 Dr. Rosemary Doran Work Phone: [facility] 06-16-2023 08:33-0400 Body weight 84.[address] Rosemary Doran Work Phone: [facility] 05-19-2023 11:21-0500 Body height 160.[address] Rosemary Doran Work Phone: [facility] 05-19-2023 11:21-0500 Body mass index (BMI) [Ratio] 31.6 kg/m2 Dr. Rosemary Doran Work Phone: [facility] 05-19-2023 11:21-0500 Body temperature 97.8 [degF] Dr. Rosemary Doran Work Phone: [facility] 05-19-2023 11:21-0500 Body weight 81.[address] Rosemary Doran Work Phone: [facility] 05-19-2023 11:21-0500 Diastolic blood pressure 90 mm[Hg] Dr. Rosemary Doran Work Phone: [facility] 05-19-2023 11:21-0500 Heart rate 88 /min Dr. Rosemary Doran Work Phone: [facility] 05-19-2023 11:21-0500 Respiratory rate 17 /min Dr. Rosemary Doran Work Phone: [facility] 05-19-2023 11:21-0500 SaO2% (BldA) [Mass fraction] 98 % Dr. Rosemary Doran Work Phone: [facility] 05-19-2023 11:21-0500 Systolic blood pressure 152 mm[Hg] Dr. Rosemary Doran Work Phone: [facility] 05-15-2023 09:01-0500 Body mass index (BMI) [Ratio] 31.6 kg/m2 Dr. Rosemary Doran Work Phone: [facility] 05-15-2023 09:01-0500 Body weight 81.[address] Rosemary Doran Work Phone: [facility] 05-15-2023 09:01-0500 Diastolic blood pressure 85 mm[Hg] Dr. Rosemary Doran Work Phone: [facility] 05-15-2023 09:01-0500 Heart rate 78 /min Dr. Rosemary Doran Work Phone: [facility] 05-15-2023 09:01-0500 Respiratory rate 18 /min Dr. Rosemary Doran Work Phone: [facility] 05-15-2023 09:01-0500 Systolic blood pressure 156 mm[Hg] Dr. Rosemary Doran Work Phone: [facility] 01-20-2023 08:05-0400 Body height 160.[address] Rosemary Doran Work Phone: [facility] 01-20-2023 08:05-0400 Body mass index (BMI) [Ratio] 32 kg/m2 Dr. Rosemary Doran Work Phone: [facility] 01-20-2023 08:05-0400 Body temperature 98 [degF] Dr. Rosemary Doran Work Phone: [facility] 01-20-2023 08:05-0400 Body weight 82.[address] Rosemary Doran Work Phone: [facility] 01-20-2023 08:05-0400 Diastolic blood pressure 90 mm[Hg] Dr. Rosemary Doran Work Phone: [facility] 01-20-2023 08:05-0400 Heart rate 88 /min Dr. Rosemary Doran Work Phone: [facility] 01-20-2023 08:05-0400 Respiratory rate 17 /min Dr. Rosemary Doran Work Phone: [facility] 01-20-2023 08:05-0400 SaO2% (BldA) [Mass fraction] 97 % Dr. Rosemary Doran Work Phone: [facility] 01-20-2023 08:05-0400 Systolic blood pressure 140 mm[Hg] Dr. Rosemary Doran Work Phone: [facility] 12-28-2022 11:09-0400 Body temperature 97.8 [degF] Dr. Rosemary Doran Work Phone: [facility] 12-28-2022 11:09-0400 Diastolic blood pressure 79 mm[Hg] Dr. Rosemary Doran Work Phone: [facility] 12-28-2022 11:09-0400 Heart rate 84 /min Dr. Rosemary Doran Work Phone: [facility] 12-28-2022 11:09-0400 Respiratory rate 16 /min Dr. Rosemary Doran Work Phone: [facility] 12-28-2022 11:09-0400 SaO2% (BldA) [Mass fraction] 96 % Dr. Rosemary Doran Work Phone: [facility] 12-28-2022 11:09-0400 Systolic blood pressure 169 mm[Hg] Dr. Rosemary Doran Work Phone: [facility] 12-27-2022 19:16-0400 Body height 160.[address] Rosemary Doran Work Phone: [facility] 12-27-2022 19:16-0400 Body mass index (BMI) [Ratio] 32.1 kg/m2 Dr. Rosemary Doran Work Phone: [facility] 12-27-2022 19:16-0400 Body weight 82.[address] Rosemary Doran Work Phone: [facility] 12-05-2022 09:25-0400 Body temperature 98.2 [degF] Dr. Rosemary Doran Work Phone: [facility] 12-05-2022 09:25-0400 Body weight 82.[address] Rosemary Doran Work Phone: [facility] 12-05-2022 09:25-0400 Diastolic blood pressure 85 mm[Hg] Dr. Rosemary Doran Work Phone: [facility] 12-05-2022 09:25-0400 Heart rate 90 /min Dr. Rosemary Doran Work Phone: [facility] 12-05-2022 09:25-0400 SaO2% (BldA) [Mass fraction] 95 % Dr. Rosemary Doran Work Phone: [facility] 12-05-2022 09:25-0400 Systolic blood pressure 145 mm[Hg] Dr. Rosemary Doran Work Phone: [facility] 11-18-2022 11:24-0400 Diastolic blood pressure 82 mm[Hg] Dr. Rosemary Doran Work Phone: [facility] 11-18-2022 11:24-0400 Heart rate 76 /min Dr. Rosemary Doran Work Phone: [facility] 11-18-2022 11:24-0400 Respiratory rate 15 /min Dr. Rosemary Doran Work Phone: [facility] 11-18-2022 11:24-0400 SaO2% (BldA) [Mass fraction] 98 % Dr. Rosemary Doran Work Phone: [facility] 11-18-2022 11:24-0400 Systolic blood pressure 137 mm[Hg] Dr. Rosemary Doran Work Phone: [facility] 11-18-2022 07:55-0400 Body height 160.[address] Rosemary Doran Work Phone: [facility] 11-18-2022 07:55-0400 Body mass index (BMI) [Ratio] 32.9 kg/m2 Dr. Rosemary Doran Work Phone: [facility] 11-18-2022 07:55-0400 Body weight 84.[address] Rosemary Doran Work Phone: [facility] 11-18-2022 07:50-0400 Body temperature 97.8 [degF] Dr. Rosemary Doran Work Phone: [facility] 11-15-2022 10:11-0400 Body mass index (BMI) [Ratio] 32.2 kg/m2 Dr. Rosemary Doran Work Phone: [facility] 11-15-2022 08:55-0400 Body temperature 97.7 [degF] Dr. Rosemary Doran Work Phone: [facility] 11-15-2022 08:55-0400 Diastolic blood pressure 78 mm[Hg] Dr. Rosemary Doran Work Phone: [facility] 11-15-2022 08:55-0400 Heart rate 68 /min Dr. Rosemary Doran Work Phone: [facility] 11-15-2022 08:55-0400 Respiratory rate 16 /min Dr. Rosemary Doran Work Phone: [facility] 11-15-2022 08:55-0400 SaO2% (BldA) [Mass fraction] 96 % Dr. Rosemary Doran Work Phone: [facility] 11-15-2022 08:55-0400 Systolic blood pressure 136 mm[Hg] Dr. Rosemary Doran Work Phone: [facility] 11-14-2022 13:12-0400 Body weight 82.[address] Rosemary Doran Work Phone: [facility] 11-14-2022 12:30-0400 Body temperature 97.6 [degF] Dr. Rosemary Doran Work Phone: [facility] 11-14-2022 12:30-0400 Diastolic blood pressure 101 mm[Hg] Dr. Rosemary Doarn Work Phone: [facility] 11-14-2022 12:30-0400 Heart rate 64 /min Dr. Rosemary Doran Work Phone: [facility] 11-14-2022 12:30-0400 Respiratory rate 14 /min Dr. Rosemary Doran Work Phone: [facility] 11-14-2022 12:30-0400 SaO2% (BldA) [Mass fraction] 98 % Dr. Rosemary Doran Work Phone: [facility] 11-14-2022 12:30-0400 Systolic blood pressure 164 mm[Hg] Dr. Rosemary Doran Work Phone: [facility] 11-14-2022 11:02-0400 Body height 160.[address] Rosemary Doran Work Phone: [facility] 11-14-2022 11:02-0400 Body mass index (BMI) [Ratio] 33.7 kg/m2 Dr. Rosemary Doran Work Phone: [facility] 11-14-2022 11:02-0400 Body weight 86.[address] Rosemary Doran Work Phone: [facility] 10-15-2022 09:24-0400 Body height 160.[address] Rosemary Doran Work Phone: [facility] 10-15-2022 09:24-0400 Body mass index (BMI) [Ratio] 30.8 kg/m2 Dr. Rosemary Doran Work Phone: [facility] 10-15-2022 09:24-0400 Body weight 78.[address] Rosemary Doran Work Phone: [facility] 10-15-2022 09:24-0400 Diastolic blood pressure 87 mm[Hg] Dr. Rosemary Doran Work Phone: [facility] 10-15-2022 09:24-0400 Heart rate 73 /min Dr. Rosemary Doran Work Phone: [facility] 10-15-2022 09:24-0400 Respiratory rate 18 /min Dr. Rosemary Doran Work Phone: [facility] 10-15-2022 09:24-0400 Systolic blood pressure 149 mm[Hg] Dr. Rosemary Doran Work Phone: [facility] 09-18-2022 19:36-0400 Diastolic blood pressure 72 mm[Hg] Dr. Rosemary Doran Work Phone: [facility] 09-18-2022 19:36-0400 Systolic blood pressure 140 mm[Hg] Dr. Rosemary Doran Work Phone: [facility] 09-18-2022 08:05-0400 Body height 160.[address] Rosemary Doran Work Phone: [facility] 09-18-2022 08:05-0400 Body mass index (BMI) [Ratio] 31.8 kg/m2 Dr. Rosemary Doran Work Phone: [facility] 09-18-2022 08:05-0400 Body temperature 97.8 [degF] Dr. Rosemary Doran Work Phone: [facility] 09-18-2022 08:05-0400 Body weight 81.[address] Rosemary Doran Work Phone: [facility] 09-18-2022 08:05-0400 Heart rate 111 /min Dr. Rosemary Doran Work Phone: [facility] 09-18-2022 08:05-0400 Respiratory rate 17 /min Dr. Rosemary Doran Work Phone: [facility] 09-18-2022 08:05-0400 SaO2% (BldA) [Mass fraction] 99 % Dr. Rosemary Doran Work Phone: [facility] 09-08-2022 16:03-0400 Diastolic blood pressure 84 mm[Hg] Dr. Rosemary Doran Work Phone: [facility] 09-08-2022 16:03-0400 Heart rate 90 /min Dr. Rosemary Doran Work Phone: [facility] 09-08-2022 16:03-0400 Respiratory rate 20 /min Dr. Rosemary Doran Work Phone: [facility] 09-08-2022 16:03-0400 SaO2% (BldA) [Mass fraction] 97 % Dr. Rosemary Doran Work Phone: [facility] 09-08-2022 16:03-0400 Systolic blood pressure 157 mm[Hg] Dr. Rosemary Doran Work Phone: [facility] 09-08-2022 15:32-0400 Body mass index (BMI) [Ratio] 33.2 kg/m2 Dr. Rosemary Doran Work Phone: [facility] 09-08-2022 15:32-0400 Body weight [address] Rosemary Doran Work Phone: [facility] 09-08-2022 14:26-0400 Body temperature 96.8 [degF] Dr. Rosemary Doran Work Phone: [facility] 04-16-2022 14:26-0500 Body height 160.[address] Rosemary Doran Work Phone: [facility] 04-16-2022 14:26-0500 Body mass index (BMI) [Ratio] 30.6 kg/m2 Dr. Rosemary Doran Work Phone: [facility] 04-16-2022 14:26-0500 Body weight 78.[address] Rosemary Doran Work Phone: [facility] 04-16-2022 14:26-0500 Diastolic blood pressure 60 mm[Hg] Dr. Rosemary Doran Work Phone: [facility] 04-16-2022 14:26-0500 Heart rate 88 /min Dr. Rosemary Doran Work Phone: [facility] 04-16-2022 14:26-0500 Respiratory rate 18 /min Dr. Rosemary Doran Work Phone: [facility] 04-16-2022 14:26-0500 Systolic blood pressure 89 mm[Hg] Dr. Rosemary Doran Work Phone: [facility] 02-11-2022 02:02-0500 Diastolic blood pressure 82 mm[Hg] Dr. Rosemary Doran Work Phone: [facility] 02-11-2022 02:02-0500 Heart rate 74 /min Dr. Rosemary Doran Work Phone: [facility] 02-11-2022 02:02-0500 Respiratory rate 16 /min Dr. Rosemary Doran Work Phone: [facility] 02-11-2022 02:02-0500 SaO2% (BldA) [Mass fraction] 96 % Dr. Rosemary Doran Work Phone: [facility] 02-11-2022 02:02-0500 Systolic blood pressure 106 mm[Hg] Dr. Rosemary Doran Work Phone: [facility] 02-11-2022 00:07-0500 Body height 160.[address] Rosemary Doran Work Phone: [facility] Work Phone: 02-11-2022 00:07-0500 Body mass index (BMI) [Ratio] 33.1 kg/m2 Dr. Rosemary Doran Work Phone: [facility] 02-11-2022 00:07-0500 Body temperature 98.4 [degF] Dr. Rosemary Doran Work Phone: [facility] 02-11-2022 00:07-0500 Body weight 84.[address] Rosemary Doran Work Phone: [facility] 10-18-2021 10:26-0400 Body mass index (BMI) [Ratio] 33.1 kg/m2 Dr. Rosemary Doran Work Phone: [facility] Work Phone: 10-18-2021 10:26-0400 Body weight 84.[address] Rosemary Doran Work Phone: [facility] Work Phone: 10-18-2021 10:26-0400 Diastolic blood pressure 63 mm[Hg] Dr. Rosemary Doran Work Phone: [facility] Work Phone: 10-18-2021 10:26-0400 Heart rate 87 /min Dr. Rosemary Doran Work Phone: [facility] Work Phone: 10-18-2021 10:26-0400 Respiratory rate 20 /min Dr. Rosemary Doran Work Phone: [facility] Work Phone: 10-18-2021 10:26-0400 SaO2% (BldA) [Mass fraction] 96 % Dr. Rosemary Droan Work Phone: [facility] Work Phone: 10-18-2021 10:26-0400 Systolic blood pressure 101 mm[Hg] Dr. Rosemary Doran Work Phone: [facility] Work Phone: Encounters Encounter Date Encounter Type Care Provider Facility Start: 02-01-2025 ambulatory [facility]: [facility] Start: 01-25-2025 End: 01-25-2025 ambulatory [facility] [place] [place] Start: 12-30-2024 Registered Referred Cesar Cole MD - [facility] Work Phone: Start: 12-30-2024 End: 12-30-2024 ambulatory [facility] Facility:[facility] Start: 12-24-[address] [facility] Work Phone: Start: 12-24-2024 End: 12-24-2024 ambulatory [facility] Facility:[facility] Start: 11-30-2024 ambulatory [facility]: [facility] Start: 11-30-[address] [facility] Work Phone: Start: 11-22-2024 End: 11-22-2024 Patient encounter procedure Yinka ZUNIGA -[facility] Work Phone: Start: 11-22-2024 End: 11-22-[address] Alexandra Hagen MD Work Phone: -[facility] Start: 11-22-2024 End: 11-22-2024 ambulatory [facility] Facility:[facility] Start: 11-08-2024 ambulatory [facility]: [facility] Start: 11-08-[address] [facility] Work Phone: Start: 10-25-[address] [facility] Work Phone: Start: 10-25-2024 End: 10-25-2024 ambulatory [facility] Start: 10-11-[address] [facility] Work Phone: Start: 10-11-2024 End: 10-11-2024 ambulatory [facility] Start: 10-04-2024 ambulatory [facility]: [facility] Start: 10-04-2024 Registered Referred [facility] Work Phone: Start: 09-24-2024 End: 09-24-[address] Anoop Blackmon MD Work Phone: -[facility] Start: 09-24-2024 End: 09-24-2024 [facility] Start: 09-24-2024 Registered Referred Cesar Leonard [place] [facility] Work Phone: Start: 09-24-2024 End: 09-24-2024 ambulatory [facility] Facility:[facility] Start: 09-22-[address] [facility]: Start: 09-22-2024 End: 09-22-2024 ambulatory [facility] Start: 09-17-2024 Registered Referred Cesar [facility] Work Phone: Start: 09-17-2024 End: 09-17-2024 ambulatory [facility] Start: 09-13-2024 End: 09-13-[address] Anant Juarez MD -[facility] Work Phone: Start: 09-13-2024 End: 09-13-[address] Alexandra Hagen MD Work Phone: [facility] Work Phone: Start: 09-13-2024 End: 09-13-2024 ambulatory [facility] Start: 09-11-2024 Non-patient / Non-visit Dr. Richardson [facility] Work Phone: Start: 09-10-2024 End: 09-11-2024 ambulatory [facility] Start: 09-10-2024 End: 09-11-2024 Evaluation and management of inpatient Dr. Matthew Oro DO -[facility] Work Phone: Start: 09-10-2024 End: 09-11-[address] Alexandra Hagen MD Work Phone: [facility] Work Phone: Start: 09-08-2024 End: 09-08-2024 Emergency department patient visit Dr. Alexandra Hagen MD Work Phone: -Emergency Department Work Phone: Start: 08-18-2024 End: 08-18-[address] Alexandra Hagen MD Work Phone: [facility] Work Phone: Start: 08-18-2024 End: 08-18-2024 Departed Referred [facility] Work Phone: Start: 08-18-2024 Registered Referred [facility] Work Phone: Start: 08-18-2024 End: 08-18-2024 ambulatory Cesar MARTINEZ Facility:[facility] Start: 07-19-2024 End: 07-19-[address] Alexandra Hagen MD Work Phone: [facility] Work Phone: Start: 07-19-2024 End: 07-19-2024 [facility] Work Phone: Start: 07-19-2024 End: 07-19-2024 ambulatory Cesar MARTINEZ Facility:[facility] Start: 07-01-2024 End: 07-01-[address] Cesar Cole MD -[facility] Work Phone: Start: 07-01-2024 End: 07-01-2024 ambulatory Alexandra Hagen Facility:[facility] Start: 06-16-2024 End: 06-16-[address] Alexandra Hagen MD Work Phone: [facility] Work Phone: Start: 06-16-2024 End: 06-16-[address] [place] [place] [facility] Work Phone: Start: 06-16-[address] Kvng leger MD [facility] Work Phone: Start: 06-16-2024 End: 06-16-2024 ambulatory Alexandra S Xiao Facility:[facility] Start: 06-09-2024 End: 06-09-[address] Alexandra Hagen MD Work Phone: [facility] Work Phone: Start: 06-09-2024 End: 06-09-[address] Kvng Ochoa [facility] Work Phone: Start: 06-09-2024 End: 06-09-2024 ambulatory Alexandra Hagen Facility:[facility] Start: 05-19-2024 End: 05-19-[address] Alexandra Hagen MD Work Phone: [facility] Work Phone: Start: 05-19-2024 End: 05-19-2024 Departed Referred Cesar Cole MD [facility] Work Phone: Start: 05-19-2024 Registered Referred Cesar Cole MD - [facility] Work Phone: Start: 05-19-2024 End: 05-19-2024 ambulatory Alexandra S Xiao Facility:[facility] Start: 05-12-2024 ambulatory Alexandra Hagen Facility: [facility] Start: 05-12-2024 Registered Referred Anant Juarez MD -[facility] Work Phone: Start: 05-10-2024 End: 05-10-[address] Anant Juarez MD -[facility] Work Phone: Start: 05-10-2024 End: 05-10-2024 ambulatory Anant Juarez [facility] Start: 05-05-2024 End: 05-05-[address] Alexandra Hagen MD Work Phone: [facility] Work Phone: Start: 05-05-2024 End: 05-05-[address] [facility] [address] [facility] Work Phone: Start: 05-05-2024 Registered Referred Cesar [facility] Work Phone: Start: 05-05-2024 End: 05-05-2024 ambulatory Cesar MARTINEZ Facility:[facility] Start: 04-28-2024 End: 04-28-[address] Alexandra Hagen MD Work Phone: [facility] Work Phone: Start: 04-28-2024 End: 04-28-[address] Kvng [facility] Work Phone: Start: 04-28-2024 End: 04-28-2024 ambulatory Alexandra S Jolliff Facility:[facility] Start: 04-14-2024 ambulatory Alexandra S Jolliff Facility: [facility] Start: 04-14-[address] Kvng [facility] Work Phone: Start: 04-09-2024 End: 04-09-[address] Kvng [facility] Work Phone: Start: 04-09-2024 End: 04-09-2024 ambulatory Alexandra S Jolliff Facility:[facility] Start: 04-06-2024 End: 04-06-[address] Kvng [facility] Work Phone: Start: 04-05-2024 End: 04-06-2024 ambulatory Alexandra S Jolliff Facility:[facility] Start: 04-05-[address] Kvng [facility] Work Phone: Start: 03-29-2024 ambulatory Alexandra S Jolliff Facility: [facility] Start: 03-29-[address] Kvng [facility] Work Phone: Start: 03-26-2024 ambulatory Alexandra S Jolliff Facility: [facility] Start: 03-26-[address] Kvng [facility] Work Phone: Start: 03-25-2024 ambulatory Alexandra S Jolliff Facility: [facility] Start: 03-25-[address] Kvng [facility] Work Phone: Start: 03-19-2024 ambulatory Alexandra S Jolliff Facility: [facility] Start: 03-19-[address] Kvng [facility] Work Phone: Start: 03-17-2024 ambulatory Kvng MARTINEZ Facil ity:[facility] Start: 03-17-[address] Kvng [facility] Work Phone: Start: 03-10-2024 ambulatory Kvng Ochoa [facility] Facil ity:[facility] Start: 03-10-[address] Kvng [facility] Work Phone: Start: 03-08-2024 ambulatory Kvng Ochoa [facility] Facil ity:[facility] Start: 03-08-[address] Kvng [facility] Work Phone: Start: 03-04-2024 ambulatory Kvng Ochoa [facility] Facil ity:[facility] Start: 03-04-[address] Kvng [facility]heed [facility] Work Phone: Start: 02-05-2024 End: 02-05-[address] Kvng Rasheed [facility] Work Phone: Start: 02-05-2024 End: 02-05-2024 ambulatory Kvng MARTINEZ Facility:[facility] Start: 06-30-2023 End: 06-30-[address] Rosemary Doran Work Phone: [facility] Work Phone: Start: 06-30-2023 End: 06-30-[address] Rosemary Doran Work Phone: [facility] Work Phone: Start: 06-16-2023 End: 06-20-2023 Evaluation and management of inpatient [facility] Start: 06-16-2023 End: 06-20-2023 Evaluation and management of inpatient Sae Conde MD Work Phone: [facility] Comment on above: Closed displaced fra cture of medial condyle of right humerus, initial encounter (Primary Dx) Start: 06-16-2023 Non-patient / Non-visit Dr. Slim Doran Work Phone: [facility] Start: 06-16-2023 End: 06-16-2023 Emergency department patient visit Dr. Rosemary Doran Work Phone: [facility] Work Phone: Start: 05-30-2023 End: 05-30-[address] Rosemary Doran Work Phone: [facility] Work Phone: Start: 05-30-2023 End: 05-30-[address] Rosemary Doran Work Phone: [facility] Work Phone: Start: 05-19-2023 End: 05-19-[address] Rosemary Doran Work Phone: [facility] Work Phone: Start: 05-15-2023 End: 05-15-[address] Rosemary Doran Work Phone: [facility] Work Phone: Start: 05-12-2023 End: 05-12-[address] Rosemary Doran Work Phone: [facility] Work Phone: Start: 05-12-[address] Rosemary Doran Work Phone: [facility] Work Phone: Start: 05-01-2023 End: 05-01-[address] Rosemary Doran Work Phone: [facility] Work Phone: Start: 05-01-2023 End: 05-01-[address] Rosemary Doran Work Phone: [facility] Work Phone: Start: 04-17-2023 End: 04-17-[address] Rosemary Doran Work Phone: [facility] Work Phone: Start: 04-17-2023 End: 04-17-[address] Rosemary Doran Work Phone: [facility] Work Phone: Start: 04-17-[address] Rosemary Doran Work Phone: [facility] Work Phone: Start: 03-20-2023 End: 03-20-[address] Rosemary Doran Work Phone: [facility] Work Phone: Start: 02-21-2023 End: 02-21-[address] Rosemary Doran Work Phone: [facility] Work Phone: Start: 02-21-2023 End: 02-21-[address] Rosemary Doran Work Phone: [facility] Work Phone: Start: 01-20-2023 End: 01-20-[address] Rosemary Doran Work Phone: [facility] Work Phone: Start: 01-20-2023 End: 01-20-[address] Rosemary Doran Work Phone: [facility] Work Phone: Start: 01-20-2023 End: 01-20-[address] Rosemary Doran Work Phone: [facility] Work Phone: Start: 01-16-2023 End: 01-16-[address] Rosemayr Doran Work Phone: [facility] Work Phone: Start: 01-16-2023 End: 01-16-[address] Rosemary Doran Work Phone: [facility] Work Phone: Start: 12-28-2022 Non-patient / Non-visit Dr. Slim Doran Work Phone: [facility] Work Phone: Start: 12-27-2022 Non-patient / Non-visit Dr. Slim Doran Work Phone: [facility] Work Phone: Start: 12-27-2022 End: 12-28-2022 Evaluation and management of inpatient Dr. Rosemary Doran Work Phone: [facility] Work Phone: Start: 12-27-2022 End: 12-28-[address] Rosemary Doran Work Phone: [facility] Work Phone: Start: 12-19-2022 End: 12-19-[address] Rosemary Doran Work Phone: [facility] Work Phone: Start: 12-19-2022 End: 12-19-[address] Rosemary Doran Work Phone: [facility] Work Phone: Start: 12-19-[address] Rosemary oDran Work Phone: [facility] Work Phone: Start: 12-09-2022 End: 12-09-[address] Rosemary Doran Work Phone: [facility] Work Phone: Start: 12-09-2022 End: 12-09-[address] Rosemary Doran Work Phone: [facility] Work Phone: Start: 12-09-[address] Rosemary Doran Work Phone: [facility] Work Phone: Start: 12-05-2022 End: 12-05-[address] Rosemary Doran Work Phone: [facility] Work Phone: Start: 11-20-2022 End: 11-20-[address] Rosemary Doran Work Phone: [facility] Work Phone: Start: 11-20-2022 End: 11-20-[address] Rosemary Doran Work Phone: [facility] Work Phone: Start: 11-20-[address] Rosemary Doran Work Phone: [facility] Work Phone: Start: 11-18-2022 End: 11-18-2022 Emergency department patient visit Dr. Rosemary Doran Work Phone: [facility] Work Phone: Start: 11-15-2022 Non-patient / Non-visit Dr. Slim Doran Work Phone: [facility] Work Phone: Start: 11-14-2022 Non-patient / Non-visit Dr. Slim Doran Work Phone: [facility] Start: 11-14-2022 Non-patient / Non-visit Dr. Slim Doran Work Phone: [facility] Work Phone: Start: 11-14-2022 End: 11-15-2022 Evaluation and management of inpatient Dr. Rosemary Doran Work Phone: [facility] Work Phone: Start: 11-14-[address] Marcelo Doran Work Phone: [facility] Work Phone: Start: 10-23-2022 End: 10-23-[address] Rosemary Doran Work Phone: [facility] Work Phone: Start: 10-23-2022 End: 10-23-[address] Rosemary Doran Work Phone: [facility] Work Phone: Start: 10-22-2022 End: 10-22-[address] Rosemary Doran Work Phone: [facility] Work Phone: Start: 10-22-2022 End: 10-22-[address] Rosemary Doran Work Phone: [facility] Work Phone: Start: 10-22-[address] Sada Doran Work Phone: [facility] Work Phone: Start: 10-15-2022 End: 10-15-[address] Rosemary Doran Work Phone: [facility] Work Phone: Start: 09-26-2022 Non-patient / Non-visit Dr. Slim Doran Work Phone: [facility] Start: 09-26-2022 End: 09-26-[address] Rosemary Doran Work Phone: [facility] Work Phone: Start: 09-26-2022 End: 09-26-[address] Rosemary Doran Work Phone: [facility] Work Phone: Start: 09-18-2022 End: 09-18-[address] Rosemary Doran Work Phone: [facility] Work Phone: Start: 09-18-2022 End: 09-18-[address] Rosemary Doran Work Phone: [facility] Start: 09-13-2022 End: 09-13-[address] Rosemary Doran Work Phone: [facility] Start: 09-08-2022 End: 09-08-2022 Emergency department patient visit Dr. Rosemary Doran Work Phone: [facility] Start: 09-06-2022 End: 09-06-[address] Rosemary Doran Work Phone: [facility] Start: 09-05-2022 End: 09-05-[address] Rosemary Doran Work Phone: [facility] Start: 08-08-2022 End: 08-08-[address] Rosemary Doran Work Phone: [facility] Start: 06-26-2022 End: 06-26-[address] Rosemary Doran Work Phone: [facility] Work Phone: Start: 06-26-2022 End: 06-26-[address] Rosemary Doran Work Phone: [facility] Start: 06-04-2022 End: 06-04-[address] Rosemary Doran Work Phone: [facility] Work Phone: Start: 06-04-2022 End: 06-04-[address] Rosemary Doran Work Phone: [facility] Start: 04-16-2022 End: 04-16-[address] Rosemary Doran Work Phone: [facility] Start: 02-11-2022 End: 02-11-2022 Emergency department patient visit Dr. Rosemary Doran Work Phone: [facility] Start: 10-18-2021 End: 10-18-[address] Rosemary Doran Work Phone: [facility] Start: 10-12-2019 End: 10-12-2019 Refill Jo Perez Work Phone: [facility] Comment on above: Refill Request; Refi ll Request Start: 02-11-2018 Patient encounter ROSA ELENA AYALALALITHA Cai lity:[facility] Start: 01-05-2018 End: 01-05-2018 Patient encounter JO PEREZ Facility:[facility] Start: 07-21-2017 End: 07-21-2017 Patient encounter RICKEY CHAVARRIA Facility:[facility] Start: 07-15-2017 Patient encounter JO PEREZ Facility:[facility] Start: 07-07-2017 End: 07-07-2017 Patient encounter JO PEREZ Facility:[facility] Start: 06-27-2017 End: 06-27-2017 Patient encounter JO PEREZ Facility:[facility] Start: 06-11-2017 Patient encounter JO PEREZ Facility:[facility] Start: 02-01-2015 End: 02-01-2015 Patient encounter procedure Shi Lester Work Phone: [facility] Start: 02-01-2015 Results Only Shi ford Work Phone: [facility] Start: 04-17-2010 End: 04-17-2010 Patient encounter procedure Cruz Lemosvel Sanchez Work Phone: [facility] Start: 04-17-2010 Results Only Cruz Geiger Akanksha ipnorristt Work Phone: [facility] Start: 07-31-2009 End: 07-31-2009 Patient encounter procedure Clotilde Juradochastity Doss Work Phone: [facility] Start: 07-31-2009 Results Only Clotilde Stone David rabec Work Phone: [facility] Start: 05-07-2001 End: 05-07-2001 Patient encounter procedure Sae Arnett Astrid Work Phone: [facility] Start: 05-07-2001 Results Only Sae Arnett Pap as Work Phone: [facility] Procedures Date Procedure Procedure Detail Performing [...] quantitative blood xcpt reagent strip Connie Perez SVP - [facility] Work Phone: Start: 06-20-2023 Prothrombin time Sonal Perez SVP - [employer] Work Phone: Start: 06-19-2023 Glucose quantitative blood xcpt reagent strip Connie Perez SVP - [facility] Work Phone: Start: 06-19-2023 Glucose quantitative blood xcpt reagent strip Connie Perez SVP - [facility] Work Phone: Start: 06-19-2023 Glucose quantitative blood xcpt reagent strip Connie Perez SVP - [facility] Work Phone: Start: 06-19-2023 Prothrombin time Sonal Perez SVP - [facility] Work Phone: Start: 06-19-2023 Glucose quantitative blood xcpt reagent strip Connie Perez SVP - [facility] Work Phone: Start: 06-19-2023 Basic metabolic pane l calcium total Connie Perez SVP - [facility] Work Phone: Start: 06-18-2023 [...] metabolic pane l calcium total Connie Perez SVP - [facility] Work Phone: Start: 06-17-2023 [...] on above: Performed By: #### L [id number] ####Wastewater Manager: ALEXANDRA BUSTAMANTE ([phone])[facility] ([address] Start: 06-16-2023 End: 06-16-2023 Radex shoulder [...] End: 11-22-2024 Evaluation of diagnostic study results [facility] Start: 09-13-2024 Lamotrigine measurement [facility] Start: 09-13-2024 Measurement of substance [facility] Start: 09-11-2024 [facility] Start: 09-11-2024 Complete blood count [facility] Start: 09-10-2024 Following clinical p athway protocol [facility] Start: 09-10-2024 Transfusion of blood product [facility] Start: 09-10-2024 Aspiration precautions [facility] Start: 09-10-2024 Assessment of risk o f venous thromboembolism [facility] Start: 09-10-2024 Cardiac monitoring [facility] Start: 09-10-2024 Catheterization of vein [facility] Start: 09-10-2024 Consultation [facility] Start: 09-10-2024 Continuous pulse oximetry [facility] Start: 09-10-2024 Electroencephalogram [facility] Start: 09-10-2024 Elevation of head of bed [facility] Start: 09-10-2024 Exercises [facility] Start: 09-10-2024 Insertion of cathete r into peripheral vein [facility] Start: 09-10-2024 Notification of physician [facility] Start: 09-10-2024 Oxygen therapy [facility] Start: 09-10-2024 Patient referral to dietitian [facility] Start: 09-10-2024 Providing care accor ding to standard [facility] Start: 09-10-2024 Referral for physical therapy [facility] Start: 09-10-2024 Referral to occupati onal therapist [facility] Start: 09-10-2024 Referral to service [facility] Start: 09-10-2024 Speech therapy assessment [facility] Start: 09-10-2024 Telemedicine consult ation with patient [facility] Start: 09-10-2024 Tobacco use cessatio n education [facility] Start: 09-10-2024 Vital signs measurements [facility] Start: 09-10-2024 End: 09-10-2024 [facility] Start: 09-10-2024 Verification routine [facility] Start: 09-10-2024 MRI of brain without contrast Brain without Contrast [facility] Start: 09-10-2024 Admission procedure [facility] Start: 09-10-2024 [facility] Start: 09-10-2024 Bacteria identified in Urine by Culture Urine Culture [facility] Start: 09-10-2024 Urine culture [facility] Start: 09-10-2024 Oxygen therapy [facility] Start: 09-10-2024 [facility] Start: 09-08-2024 Lamotrigine measurement [facility] Start: 01-06-2024 Urine microalbumin profile DTA P,TDAP,TD (1 - Tdap) [facility] Comment on above: Postponed from 06/23 (Declined at this time) Start: 07-28-2023 ADVANCE DIRECTIVE DISCUSSION A DVANCE DIRECTIVE DISCUSSION [facility] Start: 06-16-2023 Application long arm splint shoulder hand APPLY LONG ARM SPLINT [facility] Start: 06-16-2023 [facility] Start: 03-31-2023 Medicare Advantage A nnual Wellness Visit Medicare Advantage Annual Wellness Visit [facility] Start: 01-20-2023 Serum immunofixation [facility] Start: 01-20-2023 Urine immunofixation [facility] Start: 12-28-2022 [facility] Start: 12-28-2022 [facility] Start: 12-27-2022 Following clinical p athway protocol [facility] Start: 12-27-2022 Assessment of risk o f venous thromboembolism [facility] Start: 12-27-2022 Catheterization of vein [facility] Start: 12-27-2022 Incentive spirometry Wo [facility] Start: 12-27-2022 Inhalation therapy procedure [facility] Start: 12-27-2022 Insertion of cathete r into peripheral vein [facility] Start: 12-27-2022 Measuring intake and output [facility] Start: 12-27-2022 Neurological assessment [facility] Start: 12-27-2022 Providing care accor ding to [facility] Start: 12-27-2022 Provision of activit y privileges [facility] Start: 12-27-2022 Referral to occupati onal therapist [facility] Start: 12-27-2022 Referral to service [facility] Start: 12-27-2022 Speech therapy assessment [facility] Start: 12-27-2022 [facility] Start: 12-27-2022 Admission procedure [facility] Start: 11-15-2022 Patient discharge [facility] Start: 11-15-2022 Blood chemistry [facility] Start: 11-14-2022 Following clinical p athway protocol [facility] Start: 11-14-2022 Assessment of risk o f venous thromboembolism [facility] Start: 11-14-2022 Cardiac monitoring [facility] Start: 11-14-2022 Catheterization of vein [facility] Start: 11-14-2022 Continuous pulse oximetry [facility] Start: 11-14-2022 Elevation of head of bed [facility] Start: 11-14-2022 Exercises [facility] Start: 11-14-[address] anned interventions [facility] Start: 11-14-2022 Insertion of cathete r into peripheral vein [facility] Start: 11-14-2022 Measuring intake and output [facility] Start: 11-14-2022 MRI of brain without contrast Brain without Contrast [facility] Start: 11-14-2022 Notification of physician [facility] Start: 11-14-2022 Oxygen therapy [facility] Start: 11-14-2022 Patient referral to dietitian [facility] Start: 11-14-2022 Providing care accor ding to [facility] Start: 11-14-2022 Referral to occupati onal therapist [facility] Start: 11-14-2022 Referral to service [facility] Start: 11-14-2022 Speech therapy assessment [facility] Start: 11-14-2022 Tobacco use cessatio n education [facility] Start: 11-14-2022 [facility] Start: 11-14-2022 Verification routine [facility] Start: 11-14-2022 Admission procedure [facility] Start: 11-14-2022 Patient referral to dietitian [facility] Start: 09-18-2022 Patient referral [facility] Work Phone: Start: 09-18-2022 [place] and lambda light chains [facility] Start: 09-18-2022 Thiamine measurement [facility] Start: 09-17-2022 [facility] Start: 03-26-2020 Hepatitis B screening URINE ALBUMIN:CREATININE RATIO [facility] Start: 03-26-2020 Hepatitis B surface antibody level LDL CHOLESTEROL [facility] Start: 11-30-2019 Influenza vaccination INFLUENZA (#1) [facility] Start: 10-01-2019 [object Object] [facility] Start: 09-25-2019 HbA1c (Bld) [Mass fraction] HBA1C [facility] Start: 07-07-2018 Hepatitis C antibody , confirmatory test DILATED RETINAL EXAM [facility] Start: 07-20-2013 DTaP/Tdap/Td Vaccine s (1 - Tdap) DTaP/Tdap/Td Vaccines (1 - Tdap) [facility] Start: 12-05-2010 SHINGRIX VACCINE (2 of 3) CONTRERAS GRIX VACCINE (2 of 3) [facility] Start: 12-05-2010 Zoster Vaccines (2 of 3) Zoste r Vaccines (2 of 3) [facility] Start: 1995 RSV Immunization age d 60 or older (1 - 1-dose 60+ series) RSV Immunization aged 60 or older (1 - 1-dose 60+ series) [facility] Start: 1947 Depression Screening Depression Scre ening [facility] Start: 1935 Screening for osteoporosis Bone Dens ity Scan [facility] Albumin [Moles/volum e] in Serum or Plasma [facility] Albumin/Globulin ratio [facility] Anion gap in Serum or Plasma [facility] Anion gap measurement [facility] Ankle brachial pressure index [facility] Blood ammonia measurement [facility] Blood ammonia measurement [facility] BUN/Creatinine ratio [facility] BUN/Creatinine ratio [facility] Calcium [Mass/volume ] in Serum or Plasma [facility] Calcium [Mass/volume ] in Serum or Plasma [facility] Carbon dioxide, tota l [Moles/volume] in Central venous blood [facility] Carbon dioxide, tota l [Moles/volume] in Serum or Plasma [facility] Chloride [Moles/volu me] in Serum or Plasma [facility] Cholesterol [Mass/vo lume] in Serum or Plasma [facility] Cholesterol [Mass/vo lume] in Serum or Plasma [facility] Cholesterol in HDL [Mass/volume] in Serum or Plasma [facility] Cholesterol in HDL [Mass/volume] in Serum or Plasma [facility] Cholesterol in LDL [Mass/volume] in Serum or Plasma [facility] Creatinine [Mass/vol ume] in Serum or Plasma [facility] Creatinine [Moles/vo lume] in Serum or Plasma [facility] Electrophoresis: [id number] [facility] Electrophoresis: andrew ma globulin [facility] Erythrocyte mean cor puscular volume determination [facility] Globulin measurement [facility] Glucose [Mass/volume ] in Serum or Plasma [facility] Glucose [Mass/volume ] in Serum or Plasma [facility] Hematocrit [Volume F raction] of Blood [facility] Hematocrit [Volume F raction] of Blood [facility] Hemoglobin [Mass/vol ume] in Blood [facility] Hemoglobin [Mass/vol ume] in Blood [facility] Hepatic function panel [facility] IgA [Mass/volume] in Serum or Plasma [facility] IgG [Mass/volume] in Serum or Plasma [facility] IgM [Mass/volume] in Serum or Plasma [facility] [place]/lambda light c nat ratio [facility] Lambda light chains. free [Mass/volume] in Serum or Plasma [facility] Lamotrigine measurement [facility] Leukocytes [#/volume ] in Blood [facility] Leukocytes [#/volume ] in Blood [facility] Lipid 1996 panel - S mile or Plasma [facility] Low density lipoprot ein cholesterol measurement [facility] Mean corpuscular hem oglobin concentration determination [facility] Mean corpuscular hem oglobin concentration determination [facility] Mean corpuscular hem oglobin determination [facility] Mean corpuscular hem oglobin determination [facility] Measurement of renal function [facility] Measurement of renal function [facility] MR Cervical spine [facility] MR Lumbar spine [facility] Neutrophil count [facility] Neutrophil percent differential count [facility] Patient Education [facility] Work Phone: Patient referral [facility] Work Phone: Platelets [#/volume] in Blood [facility] Platelets [#/volume] in Blood [facility] Potassium [Moles/vol ume] in Serum or Plasma [facility] Potassium measurement [facility] Protein electrophore sis panel - Serum or Plasma [facility] Red blood cell count [facility] Red blood cell count [facility] Red cell distributio n width determination [facility] Red cell distributio n width determination [facility] Serum chloride measurement [facility] Serum protein electrophoresis [facility] Sodium [Moles/volume ] in Serum or Plasma [facility] Sodium measurement [facility] Total cholesterol:HD L ratio measurement [facility] Triglycerides measurement [facility] Triglycerides measurement [facility] Troponin T.cardiac [Mass/volume] in Serum or Plasma by High sensitivity method [facility] Troponin T.cardiac [Mass/volume] in Serum or Plasma by High sensitivity method [facility] Urea nitrogen [Mass/ volume] in Serum or Plasma [facility] Urea nitrogen [Mass/ volume] in Serum or Plasma [facility] Urine culture Urine Culture [facility] Urine kappa light ch ain measurement [facility] US Carotid arteries [facility] VLDL cholesterol measurement [facility] VLDL cholesterol measurement [facility] Hernandez [facility] Immunizations Immunization Date Immunization Notes Care Provider Fa cility 06-02-2020 Steph (Moderna) Dr. Rosemary mixon Work Phone: [facility] 05-05-2020 Covdeena (Moderna) Dr. Rosemary mixon Work Phone: [facility] 04-27-2019 influenza, high dose seasonal, preservative-free Alexia Adamsi [facility] 01-05-2018 influenza, high dose seasonal, preservative-free Alexia Orinfadinéstori [facility] 12-12-2014 influenza, seasonal, injectable [facility] pneumococcal conjuga te vaccine, 13 valent Alexia Orinfadinéstordonna [facility] 12-06-2013 influenza, seasonal, injectable [facility] 07-19-2013 tetanus and diphther ia toxoids, adsorbed, preservative free, for adult use (2 Lf of tetanus toxoid and 2 Lf of diphtheria toxoid) [facility] 01-25-2013 influenza, seasonal, injectable [facility] 01-13-2012 influenza, seasonal, injectable [facility] 02-11-2011 influenza, seasonal, injectable [facility] 10-10-2010 zoster vaccine, live Jo Martinez [facility] 03-31-2006 pneumococcal polysaccharide vaccine, [address] [facility] Payers Date Payer Category Payer Self-pay [id number] 2023 Medicare [employer] MEDICARE UHC AARP MEDICARE ADVANTAGE [id number] 2023-Present [phone] [address] [address] [place] [address] Medicare HMO [id number] 2023 Unknown [id number] 2005 Unknown [id number] .2.840.995367.1.13.159.2.7.3 .704026.315 1935 Unknown [id number] 2.16.840.1.933038.3.579.2.278 1935 Unknown [id number] 2.16.840.1.514395.3.579.2.278 1935 Unknown [id number] 2..840.1.215375.3.579.2.278 1935 Unknown [id number] 2.16.840.1.680921.3.579.2.278 1935 Unknown [id number] 2.840.1.641939.3.579.2.278 1935 Unknown [id number] 2.840.1.691874.3.579.2.278 1935 Unknown [id number] 2.0.1.124051.3.579.2.278 Medicare MEDICARE PART A B [id number] Unknown [id number] Unknown [id number] 2.840.1.863698.3.579.2.462 Unknown [id number] 2.840.1.301383.3.579.2.462 Unknown [id number] .0.1.443838.3.579.2.462 Unknown [id number] 2.840.1.812857.3.579.2.462 Unknown [id number] 2.840.1.226926.3.579.2.462 Unknown [id number] 2.840.1.208992.3.579.2.462 Unknown [id number] 2.840.1.590427.3.579.2.462 Unknown [id number] 2.840.1.474074.3.579.2.462 Unknown [id number] 2.16.840.1.930251.3.579.2.462 Unknown [id number] 2.16.840.1.263605.3.579.2.462 Unknown [id number] 2.16.840.1.911755.3.579.2.462 Unknown [id number] 2.16.840.1.253445.3.579.2.462 Unknown [id number] 2.16.840.1.636882.3.579.2.462 Unknown [id number] 2.16.840.1.061986.3.579.2.462 Unknown [id number] 2.840.1.033852.3.579.2.462 Unknown [id number] 2.840.1.904760.3.579.2.462 Unknown [id number] 2.840.1.231887.3.579.2.462 Unknown [id number] 2.840.1.490392.3.579.2.462 Unknown [id number] 2.840.1.560185.3.579.2.462 Unknown [id number] 2.840.1.960767.3.579.2.462 Unknown [id number] 2.840.1.155309.3.579.2.462 Unknown [id number] 2.840.1.223156.3.579.2.462 Unknown [id number] 2.16.840.1.188832.3.579.2.462 Unknown [id number] 2.16.840.1.584897.3.579.2.462 Unknown [id number] 2.16.840.1.199378.3.579.2.462 Unknown [id number] 2.16.840.1.539601.3.579.2.462 Unknown [id number] 2.840.1.696329.3.579.2.462 Unknown [id number] 2.16.840.1.526093.3.579.2.462 Unknown [id number] 2.16.840.1.354737.3.579.2.462 Unknown [id number] 2.16.840.1.015634.3.579.2.462 Unknown [id number] 2.16.840.1.598668.3.579.2.462 Unknown [id number] 2.16.840.1.917565.3.579.2.462 Unknown [id number] 2.16.840.1.320739.3.579.2.462 Unknown [id number] 2.16.840.1.966570.3.579.2.462 Unknown [id number] 2.16.840.1.933255.3.579.2.462 Unknown [id number] 2.16.840.1.002563.3.579.2.462 Unknown [id number] 2.16.840.1.713872.3.579.2.462 Unknown [id number] 2.16.840.1.793606.3.579.2.462 Unknown [id number] 2.16.840.1.043168.3.579.2.462 Unknown [id number] 2.16840.1.884608.3.579.2.462 Unknown [id number] 2.16840.1.593527.3.579.2.462 Unknown [id number] 2.16840.1.461119.3.579.2.462 Unknown [id number] 2.16840.1.633912.3.579.2.462 Social History Date Type Detail Facility Start: 05-13-2019 End: 09-11-2024 Tobacco smoking status NHIS Former smoker [facility] End: 03-20-2008 History of tobacco use Current smoker [facility] End: 03-20-2008 History of tobacco use Cigarette Smoker [facility] Start: 05-13-2019 End: 06-17-2023 Cigarettes smoked current (pack per day) - Reported [facility] Start: 05-13-2019 End: 06-18-2023 Tobacco use and exposure Never used [facility] Start: 05-13-2019 Alcohol intake 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 (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) [facility] Start: 1935 Sex Assigned At Not on file [facility] Exposure to SARS-CoV -2 (event) Not sure [facility] Start: 02-11-2022 End: 06-16-2023 Tobacco smoking status NHIS Unknown if ever smoked [facility] Start: 04-19-2020 Rare [facility] Start: 04-19-2020 None [facility] Start: 04-19-2020 Spouse/ Signif icant Other [facility] Start: 08-11-2020 Non-smoker [facility] Start: 1935 Sex Assigned At Female [facility] Start: 06-18-2023 Tobacco smoking stat us NHIS Never smoked tobacco [place] Start: 06-17-2023 End: 06-18-2023 [facility] [employer] [facility] [employer] Has the [employer], [employer], [employer], or water company threatened to shut off services in your home in past 12Mo No [facility] How often to you hav e a drink containing alcohol? Never [facility] How many standard drinks containing alcohol do you have on a typical day? Patient does not drink [employer] (I/We) worried wheth er (my/our) food would run out before (I/we) got money to buy more. Never true [place] Start: 06-04-2024 End: 07-20-2024 Sex Female (finding) [facility] Procedure Code Equipment Code Equipment [...] instructed [employer] Cancellous 30cc 1-8 - [id number] - [id number]_imp Start: 06-18-2023 Plate Hum Dist 2.7/3.5 83953_imp Start: 06-18-2023 Plate Va Olcrn 2.7/3.5 2h R - [id number]_imp Start: 06-18-2023 Plate Va M-D-Hum 2.7/3.5 1h L - [id number]_imp Start: 06-18-2023 Screw Lck Va 2.4k34r-V T8 Rcs - [id number] 83964_imp Start: 06-18-2023 Screw Lck Va 2.7x58 S-T T8 Rcs - [id number] 83965_imp Start: 06-18-2023 Screw Lck Va 2.9b66w-G T8 Rcs - [id number] 83966_imp Start: 06-18-2023 Screw Lck Va 2.7t85s-F T8 Rcs - [id number] 83967_imp Start: 06-18-2023 Screw Lck Va 2.4m84q-A T8 Rcs - [id number] 83968_imp Start: 06-18-2023 Screw Lck Va 2.7x50 S-T T8 Rcs - [id number] 83969_imp Start: 06-18-2023 Screw Crtx 3.5x22mm S-T - [id number] 83971_imp Start: 06-18-2023 Screw Crtx 3.5x26mm S-T - [id number] 83972_imp Start: 06-18-2023 Screw Lck Va 2.8d25z-S T8 Rcs - [id number] 83975_imp Start: 06-18-2023 Screw Lck Va 2.9l52r-N T8 Rcs - [id number] 83976_imp Start: 06-18-2023 Screw Lck Va 2.7x56 S-T T8 Rcs - [id number] 83956_imp Start: 06-18-2023 Screw Crtx 3.5x28mm S-T - [id number] 83957_imp Start: 06-18-2023 Screw Crtx 3.5x30mm S-T - [id number] 83958_imp Start: 06-18-2023 Screw Lck Va 2.9m40h-T T8 Rcs - [id number] 83959_imp Start: 06-18-2023 Screw Lck Va 2.5c66s-E T8 Rcs - [id number] 83961_imp Start: 06-18-2023 Goals Date Patient Goal Desired Activity /State Functional Status Date Assessment Result Facility 09-11-2024 Functional status [facility] Work Phone: 12-28-2022 Functional status [facility] Work Phone: 11-15-2022 Functional status Chair [facility] Work Phone: Mental Status Date Assessment Result Facility 09-11-2024 Cognitive function Voice/Name [facility] Work Phone: 09-10-2024 Cognitive function Voice/Name [facility] Work Phone: 09-08-2024 Cognitive function Voice/Name [facility] Work Phone: 12-28-2022 Cognitive function Voice/Name [facility] Work Phone: 11-18-2022 Cognitive function Level Of Cons ciousness Awake;Alert;Appropriate [facility] Work Phone: 11-15-2022 Cognitive function Appropriate;Cooperativ e [facility] Work Phone: 11-14-2022 Cognitive function Voice/Name [facility] Work Phone: 11-14-2022 Cognitive function Voice/Name [facility] Work Phone: 09-08-2022 Cognitive function Awake;Alert;A ppropriate;Follow s Commands [facility] Work Phone: 02-11-2022 Cognitive function Awake;Alert;Appropriat e [facility] Work Phone: Clinical Notes 02-14-2007 to 09-11-2024 Note Date & Type Note Facility 09-11-2024 Discharge summary [facility] 09-11-2024 Procedure note [facility] 09-11-2024 Discharge summary [facility] 09-11-2024 Discharge summary Note Date/Time September 11, 2024 2:40pm [facility] Medical Records Department [address] [place] [address] Instructions for Home/Discharge Instructions 09/11/24 1214 MR#: [id number] Acct: [id number] Name: EZRA GONZALEZ Rep #:[id number] : 1935 89 From: Matthew carbajal DO [...] Attending Provider: Matthew Oro Primary Care Provider: Kvgn Ochoa Consulting Providers: Olivia Trinidad; Janett French; [...] Thurman DO; Ashu Leonard MD ~ Signed [facility] Work Phone: 1(276) 621-525706-14-2025 Discharge summary Author Matthew [facility] Note Date/Time September 11, 2024 3:14 pm [facility] Medical Records Department [address] [place] [address] Discharge Summary 09/11/24 1214 MR#: [id number] Acct: [id number] Name: EZRA GONZALEZ Rep #:[id number] : 1935 89 From: Matthew carbajal DO PCP: Dr. Kvng Ochoa DO Status:ADM MARIELOS Location: [place] [id number] Providers Date of Admission: 09/10/24 Date [...] is an 89-year-old female who presented to [facility] ED on 09/10/2024 with dysarthria. 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 Reading Location: [id number] Brain MRI 09/10/24 16:07 IMPRESSION: Atrophy and mild microvascular changes Reading [facility] D/C Instructions DC O2, CPAP, [...] Self Care Charges/Coding Visit Charges Inpatient E&M: 33596 Disch Hosp >30min 09/11/24 1444 <Electronically signed [...] DO; Dr. Kvng Ochoa DO ~* Signed [facility] Work Phone: 1(284) 131-359506-14-2025 Progress note Author Lenin Tamez [facility] Note Date/Time September 11, 2024 10:4 1am [facility] Medical Records Department [address] [place] [address] Progress Note - Neurology 09/11/24 1035 MR#: [id number] Acct: [id number] Name: EZRA GONZALEZ Rep #:[id number] : 1935 89 From: Lenin Morel PCP: Dr. 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 MRI brain - no acute stroke. LDL-100 Diagnosis: TIA Plan: Continue coumadin and statin. Check A1c. Follow up EEG. Continue lamictal.Follow up with neurology as an outpatient. OT/PT/PIZZA COOK. Sign off for now and please call [...] days ago was 2.9 and 2.4 at [place]) and seizure on lamictal (had last GTC on Friday) p/w transient dysarthria. History is obtained from patient. On my exam, NIHSS-0 and patient reports feeling better. She follows with Dr. Juarez with neurology. CT head- no acute intracranial process. CTA- no LVO with b/l ICA 60% and diffuse narrowing of left BLOW MOLDING MACHINE TENDER. MRI brain - no acute stroke. Today, [...] (Auto) 72.3 H, Lymph % (Auto) 16.6 L,Bond % (Auto) 9.1, Eos % (Auto) 1.2, [...] Clarity Clear, Urine pH 5.0, Ur Specific [place] 1.010, Urine Protein 30 H, Urine Glucose [...] Catch Urine Culture - Preliminary GNR lactose professor of sport management Radiography Diagnostic Testing: Radiology Impression Brain CT 09/10/24 13:55 IMPRESSION: CHRONIC CHANGES. NO ACUTE FINDINGS. Red Alert: Chronic changes. The critical information above was relayed directly by me by telephone to Teri Garcai on 09/10/2024 at 2:05 pm with readback [...] and with change in RN caregiver. Freq: [id number] Protocol: Activity Type Activity Date Activity User E-sign Co-sign Detail Recorded Client Recorded Date Recorded By Document 09/11/24 09:08 YOVANY [id number] 09/11/24 09:08 YOVANY 09/11/24 09:08 NIH Stroke [...] Cosigner Signature (if applicable): CC: ~ Signed [facility] Work Phone: 1(557) 872-498306-14-2025 [facility] Medical Records Department [address] [place] [address] Discharge Summary 09/11/24 1214 MR#: [id number] Acct: [id number] Name: EZRA GONZALEZ Rep #: [id number] : 1935 89 From: Matthew Oro DO PCP: Dr. Kvng Ochoa DO Status:ADM MARIELOS Location: [place] [address] Providers Date of Admission: 09/10/24 Date of [...] is an 89-year-old female who presented to [facility] ED on 09/10/2024 with dysarthria. Short hospital [...] and non- distended Anastasia (more content not included)...[facility]06-14-2025 Progress note [facility] Medical Records Department [address] [place] [address] Progress Note - Neurology 09/11/24 1035 MR#: [id number] Acct: [id number] Name: EZRA GONZALEZ Rep #:[id number] : 1935 89 From: Lenin Morel PCP: Dr. 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 MRI brain - no acute stroke. LDL-100 Diagnosis: TIA Plan: Continue coumadin and statin. Check A1c. Follow up EEG. Continue lamictal.Follow up with neurology as an outpatient. OT/PT/PIZZA COOK. Sign off for now and please call [...] days ago was 2.9 and 2.4 at [place]) and seizure on lamictal (had last GTC on Friday) p/w transient dysarthria. History is obtained from patient. On my exam, NIHSS-0 and patient reports feeling better. She follows with Dr. Juarez with neurology. CT head- no acute intracranial process. CTA- no LVO with b/l ICA 60% and diffuse narrowing of left BLOW MOLDING MACHINE TENDER. MRI brain - no acute stroke. Today, [...] %(Auto) 72.3 H, Lymph % (Auto) 16.6 L,Bond % (Auto) 9.1, Eos % (Auto) 1.2, [...] Clarity Clear, Urine pH 5.0, Ur Specific [place] 1.010, Urine Protein 30 H, Urine Glucose [...] Catch Urine Culture - Preliminary GNR lactose professor of sport management Radiography Diagnostic Testing: Radiology Impression Brain CT 09/10/24 13:55 IMPRESSION: CHRONIC CHANGES. NO ACUTE FINDINGS. Red Alert: Chronic changes. The critical information above was relayed directly by me by telephone to Teri Garcia on 09/10/2024 at 2:05 pm with readback verification. Reading Location: [facility] Head/Neck CTA 09/10/24 13:55 IMPRESSION: Calcific [...] 3:01 pm with readback verification. Reading Location: [id number]-R Brain MRI 09/10/24 16:07 IMPRESSION: Atrophy and mild microvascular changes Reading Location: [facility] Rhythm Strip Rhythm Strip: A-fib [...] and with change in RN caregiver. Freq: [id number] Protocol: Activity Type Activity Date Activity User E-sign Co-sign Detail Recorded Client Recorded Date Recorded By Document 09/11/24 09:08 YOVANY [id number] 09/11/24 09:08 YOVANY 09/11/24 09:08 NIH Stroke [...] Cosigner Signature (if applicable): CC: ~ Signed [facility]06-13-2025 History and physical [facility] Note Date/Time September 10, 2024 5:27 pm [facility] Medical Records Department [address] [place] [address] H&P Exam - Hospitalist 09/10/24 1603 MR#: [id number] Acct: [id number] Name: EZRA GONZALEZ Rep #:[id number] : 1935 89 From: Matthew carbajal DO PCP: Dr. Kvng Ochoa, DO Status:ADM MARIELOS Location: [place] [address] HPI - General General Date of Admission: 09/10/24 Date of Service: 09/10/24 Chief Complaint: Dysarthria HPI Narrative EZRA GONZALEZ, is a 89 F who presented to [facility] ED on 09/10/2024 with dysarthria. Patient lives at assisted living at [place]. Has history of seizures and is on [...] any other acute concerns at this time. 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 Reading Location: [id number]-T Head/Neck CTA 09/10/24 13:55 IMPRESSION: Calcific plaque [...] 3:01 pm with readback verification. Reading Location: [id number] Assessment & Plan Assessment/Plan (1) Difficulty with speech: PLAN: Plan Patient is an 89-year-old female who presented to [facility] ED on 09/10/2024 with dysarthria. 1. Episode [...] 55 minutes. Charges/Coding Visit Charges Inpatient E&M: 95220 Init Hosp L2 09/10/24 1727 <Electronically signed by Matthew Oro DO> Cosigner Signature (if applicable): CC: Dr. Matthew Oro DO; Dr. Kvng Ochoa DO~ Signed [facility] Work Phone: 1(970) 816-353406-13-2025 Discharge summary [facility] Note Date/Time September 10, 2024 4:17 pm [facility] Medical Records Department [address] [place] [address] Emergency Department Summary 09/10/24 MR#: [id number] Acct: [id number] Name: EZRA GONZALEZ Rep #:[id number] : 1935 89 From: Teri Echeverria PCP: [...] son Wilfredo (her eldest son) phone number [phone]. He states that she follows with Dr. 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 He also tells me that he talk to her about 615 this morningand she seemed a little off with her mentation as well as her pronunciation. 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 Reading Location: [id number] Head/Neck CTA 09/10/24 13:55 IMPRESSION: Calcific plaque [...] 3:01 pm with readback verification. Reading Location: [id number] Rhythm Strip Rhythm Strip: A-fib Rate: 75 Ectopy: None EKG Initial EKG: Attestation: I personally reviewed and interpreted this EKG as follows: Interpretation: Atrial Fibrillation Comments: Atrial fibrillation at a rate of 75 bpm Left axis deviation Moderate voltage criteria for LVH Normal ST segments Management Discussion w/another healthcare provider: Hospitalist, Crane Assembler and Radiologist Discharge Plan Triage Chief Complaint: [...] DO [Primary Care Provider] - Print Language: Finnish Disposition Disposition: Acute Care Hospital [facility] NIHSS NIHSS 1a. Level of [...] No aphasia; normal 10. Dysarthria: 1 = Slle-cq-bxpjmljm dysarthria; 11. Extinction and Inattention: 0 - [...] your Primary Care Provider. Call [facility] ([phone]) or report to the closest Emergency Room. Call 911 if necessary. 09/10/24 1617 <Electronically signed by Teri Garcia DO> Cosigner Signature (if applicable): CC: Dr. 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 chronic November 22 8:14am Essential (primary) hypertension chr onic November 22, 2024 8:14am Hyperlipidemia chronic October 8:14am [facility] Work Phone: 1(632) 253-510206-13-2025 Evaluation note* Diagnosis Onset Date Resolution Status Admit Date Difficulty with speech resolved Ju ne 2024 4:03pm Dementia acute September 13 2:04pm 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 2:04pm Urinary tract infection acute J une 2024 2:04pm Transient ischemic attack resolved September 13, 2024 2:04pm residential current use of anticoagulant acute November 22 8:14am Lower extremity edema acute Oct 8:14am Persistent atrial fibrillation acute November 22, 2024 8:14am 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 Kvng Ochoa, DO Status:ADM MARIELOS Location: [place] [address] HPI - General General Date of Admission: 09/10/24 Date of Service: 09/10/24 Chief Complaint: Dysarthria HPI Narrative EZRA GONZALEZ, is a 89 F who presented to [facility] ED on 09/10/2024 with dysarthria. Patient lives at assisted living at [place]. Has history of seizures and is on [...] any other acute concerns at this time. 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 Reading Location: [id number] Head/Neck CTA 09/10/24 13:55 IMPRESSION: Calcific plaque [...] 3:01 pm with readback verification. Reading Location: [id number] Assessment & Plan Assessment/Plan (1) Difficulty with speech: PLAN: Plan Patient is an 89-year-old female who presented to [facility] ED on 09/10/2024 with dysarthria. 1. Episode [...] 55 minutes. Charges/Coding Visit Charges Inpatient E&M: 96545 Init Hosp L2 09/10/24 1727 Cosigner Signature (if applicable): CC: Dr. Matthew Oro DO; Dr. Kvng Ochoa DO~ Signed [facility]06-13-2025 Discharge summary [facility] Medical Records Department [address] [place] [address] Emergency Department Summary 09/10/24 MR#: [id number] Acct: [id number] Name: EZRA GONZALEZ Rep #:[id number] : 1935 89 From: Teri Echeverria PCP: [...] son Wilfredo (her eldest son) phone number [phone]. He states that she follows with Dr. 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 He also tells me that he talk to her about 615 this morningand she seemed a little off with her mentation as well as her pr onunciation. 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 Neurology note from 05/10/[address] Juarze is reviewed. Patient had episodes of garbled [...] 72.3 H Lymph % (Auto) 16.6 L Bond % (Auto) 9.1 Eos % (Auto) 1.2 [...] Clarity Clear Urine pH 5.0 Ur Specific [place] 1.010 Urine Protein 30 H Urine Glucose [...] 3:01 pm with readback verification. Reading Location: [id number] Rhythm Strip Rhythm Strip: A-fib Rate: 75 Ectopy: None EKG Initial EKG: Attestation: I personally reviewed and interpreted this EKG as follows: Interpretation: Atrial Fibrillation Comments: Atrial fibrillation at a rate of 75 bpm Left axis deviation Moderate voltage criteria for LVH Normal ST segments Management Discussion w/another healthcare provider: Hospitalist, Crane Assembler and Radiologist Discharge Plan Triage Chief Complaint: [...] DO [Primary Care Provider] - Print Language: Finnish Disposition Disposition: Acute Care Hospital [facility] NIHSS NIHSS 1a. Level of [...] No aphasia; normal 10. Dysarthria: 1 = Mcgd-sz-gyzyxhig dysarthria; 11. Extinction and Inattention: 0 - [...] your Primary Care Provider. Call [facility] ([phone]) or report tothe closest Emergency Room. Call 911 if necessary. 09/10/24 1617 Cosigner Signature (if applicable): CC: Dr. Kvng Ochoa, ~ Signed [facility]06-13-2025 Radiology Diagnostic study note [facility] Imaging Services [address] [place], [place] [address] STROKE CTA Head AND Neck W/Con MR#: [id number] Acct: [id number] Name: EZRA GONZALEZ Rep #: [id number] : 1935 F 89 From: Jian Gipson MD PCP: Dr. Kvng Ochoa DO Status: REG ER Study:STROKE CTA Head AND Neck W/Con Date of Exam: 09/10/24 Exam# [id number] Ordering Dr: Adeel Garcia DO PROCEDURE: STROKE [...] RIGHT Vertebral: Unremarkable. LEFT Vertebral: Unremarkable. Anatomy: [place] of Monique anatomy is normal. Aneurysm or [...] 3:01 pm with readback verification. Reading Location: [id number] CC: Dr. Teri Garcia DO; Dr. Kvng Ochoa DO ~ Barrel Handler: Signed [facility]06-13-2025 Radiology Diagnostic study note [facility] Imaging Services [address] [place] [address] STROKE Brain/Head without Cont MR#: [id number] Acct: [id number] Name: EZRA GONZALEZ Rep #: [id number] : 1935 F 89 From: Jian Gipson MD PCP: Dr. Kvng Ochoa DO Status: REG ER Study:STROKE Brain/Head without Cont Date of Exam: 09/10/24 Exam# [id number] Ordering Dr: Adeel Garcia DO PROCEDURE: STROKE [...] Garcia DO; Dr. Kvng Ochoa DO ~ Barrel Handler: Signed [facility]06-11-2025 Discharge summary [facility] Medical Records Department [address] [place] [address] Emergency Department Summary 09/08/24 MR#: [id number] Acct: [id number] Name: EZRA GONZALEZ Rep #:[id number] : 1935 89 From: Anoop Blackmon MD [...] Spinal stenosis Osteoarthritis Atherosclerotic heart disease of robinson coronary artery without angina pectoris Type 2 [...] creatinine ratio of 35:1. Glucose is slight [id number] with a normal CO2 anion gap. Labs: Laboratory Results - last 24 hr 09/08/24 12:50 WBC 13.6 H RBC 4.40 Hgb 13.8 Hct 41.4 MCV 94.1 MCH 31.4 MCHC 33.3 RDW Std Deviation 45.2 H RDW Coeff of Sumeet 13.2 Plt Count 326 MPV 10.8 Immature Gran % (Auto) 0.400 Neut % (Auto) 75.9 H Lymph % (Auto) 16.2 L Bond % (Auto) 6.6 Eos % (Auto) 0.7 [...] with her neurologist Dr. Juarez Print Language: Finnish Disposition Disposition: Home, Self Care What to do if you have Problems For any increased pain, shortness of breath, bleeding, nausea or vomiting, chestpain, or any unexpected problems, contact your Primary Care Provider. Call [facility] ([phone]) or report tothe closest Emergency Room. Call 911 if necessary. 09/08/24 2737 Cosigner Signature (if applicable): CC: Dr. 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 Glucose is slight [id number] with a normal CO2 anion gap. Labs: Laboratory Results - last 24 hr 09/08/24 12:50 WBC 13.6 H RBC 4.40 Hgb 13.8 Hct 41.4 MCV 94.1 MCH 31.4 MCHC 33.3 RDW Std Deviation 45.2 H RDW Coeff of Sumeet 13.2 Plt Count 326 MPV 10.8 Immature Gran % (Auto) 0.400 Neut % (Auto) 75.9 H Lymph % (Auto) 16.2 L Bond % (Auto) 6.6 Eos % (Auto) 0.7 [...] with her neurologist Dr. Juarez Print Language: Finnish Disposition Disposition: Home, Self Care What to do if you have Problems For any increased pain, shortness of breath, bleeding, nausea or vomiting, chestpain, or any unexpected problems, contact your Primary Care Provider. Call [facility] ([phone]) or report to the closest Emergency Room. Call 911 if necessary. 09/08/24 8188 <Electronically signed by Anoop Blackmon MD> Cosigner Signature (if applicable): CC: Dr. Kvng Ochoa MD ~ Signed [facility] Work Phone: 1(127) 141-799104-03-2025 Evaluation note* Diagnosis Onset Date Resolution Status Admit Date Longstanding persistent atrial fibrillation acute July 01 10:35am Essential (primary) hypertension chronic July 01, 2024 10:35am History of coronary artery stent placement February 14, 2007 resolved July 01 10:35am [facility] Work Phone: 1(697) 964-335704-03-2025 Evaluation note* Diagnosis Onset Date Resolution Status Admit Date Longstanding persistent atrial fibrillation acute July 01 10:35am Essential (primary) hypertension chronic July 01, 2024 10:35am History of coronary artery stent placement February 14, 2007 resolved July 01 10:35am Difficulty with speech acute [facility] 2024 4:03pm [facility] Work Phone: 1(313) 421-978404-03-2025 Evaluation note* Diagnosis Onset Date Resolution Status Admit Date Longstanding persistent atrial fibrillation acute July 01 10:35am Essential (primary) hypertension chronic July 01, 2024 10:35am History of coronary artery stent placement February 14, 2007 resolved July 01 10:35am Difficulty with speech acute [facility] 2024 4:03pm 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 2:04pm [facility] Work Phone: 1(150) 144-351404-03-2025 Evaluation note* Diagnosis Onset Date Resolution Status Admit Date Longstanding persistent atrial fibrillation acute July 01 10:35am Essential (primary) hypertension chronic July 01, 2024 10:35am History of coronary artery stent placement February 14, 2007 resolved July 01 10:35am Difficulty with speech resolved [facility] 2024 4:03pm 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 2:04pm [facility] Work Phone: [phone] Evaluation note* Diagnosis Onset Date Resolution Status Admit Date Dementia acute May 10, 2024 2:34pm Epilepsy acute May 10, 2024 2:34pm Transient ischemic attack resolved May 10, 2024 2:34pm [facility] Work Phone: 1([phone]) 967-152802-10-2025 Evaluation note* Diagnosis Onset Date Resolution Status Admit Date Dementia acute May 10, 2024 2:34pm Epilepsy acute May 10, 2024 2:34pm Transient ischemic attack resolved May 10, 2024 2:34pm Longstanding persistent atrial fibrillation acute July 01, 025 10:35am Essential (primary) hypertension chronic July 01, 2024 10:35am History of coronary artery stent placement February 14, 2007 resolved July 01, 2024 10:35am [facility] Work Phone: 1([phone]) 689-795503-22-2024 NoteStart PACC Note Home Health Referral Educated patient on Home Care and services available. Patient offered choice of available HHC and agreeable to PT/OT services with [facility]. Care [...] is noted as yes - consider a CHOPPED STRAND OPERATOR evaluation once the patient returns home. START PATIENT REGISTRATION INFORMATION Order Information Order Signing Physician: Connie Perez APRN * Service Ordered RN ?: No Service Ordered PT ?: Yes Service Ordered OT ?: Yes Service Ordered ST ?: No Service Ordered CHOPPED STRAND OPERATOR?:No Service Ordered DIGITAL MEDIA SPECIALIST?: No Following Physician: ALEXANDRA HAGEN Following Physician Overseeing Physician: ALEXANDRA HAGEN (Required for Residents only) Agreeable to Follow? No Date/Time of Call 06/20/23 2:40 PM, Spoke with: BRYAN FOR OFFICE-CONFIRMED WITH JOSEP THIS IS HER PHYSICAN AND CAN SEE RECENT NOTES IN [facility] Care Coordination Same Day SOC?: No Primary Care Physician: ALEXANDRA HAGEN Primary Care Physician Primary Care Physician Address: [address] [place] [address] / [facility] [address] Visit Instructions: N/A Service Discharge Location Type: Assisted Living Service Facility Name: [facility] Floor Facility: N/A Service Room No: 105 Demographics Patient Last Name: Lisa Patient First Name: Ezra Language/Communication Barrier: NONE Service Address: [address] [place] [address] [address] Service City: [facility] ST: [place] Service ZIP: [address] Service (home) Other phone numbers: No relevant phone numbers on file. Emergency Contact: Extended Emergency Contact Information Primary Emergency Contact: Patito [place] Mobile Relation: Son Dairy Farm Operator needed? No Secondary Emergency Contact: Ty [place] Mobile Relation: Son Admission Information Admit Date: 06/16/2023 Patient status at discharge: Inpatient Admitting Diagnosis: Closed displaced fracture of medial condyle of right humerus, initial encounter [S42.610D] Caregiver Information Caregiver First Name: AMANUEL Caregiver Last Name: AMANUEL Caregiver Relationship to Patient NA Caregiver Phone Number: NA Caregiver Notes: N/A Nail Your Mortgage-Tech List No END PATIENT REGISTRATION INFORMATION Pt [...] medications. Discharge Date: 06/20/23 Referral Source-PACC: (Hospital/Unit): [facility] / E7-707/E7-707 A End PACC [facility]03-22-2024 History of Present illness Narrative* Juanjo Villalba RN - 06/20/2023 3:51 PM EDT Dc via DM cot to Josep MCARTHUR with all belongings * Juanjo Villalba RN - 06/20/2023 3:01 PM EDT Called report to Maryanne junior * Dc Lombardi - 06/20/2023 2:26 PM EDT [facility] Anticoagulation Management Service (RIA) Inpatient Warfarin Consult HPI: Ezra Gonzalez is a 87 y.o. female admitted on 06/16/2023 for Closed displaced fracture of medial condyle of right humerus, initial encounter [S42.429C] History reviewed. No pertinent past medical history. [...] patient can be classified as high risk ([id number] = 8). 2. Monitor for s/s of bleeding and drug interactions. Will adjust dose accordingly 3. RIA will manage while inpatient Dc Lombardi, JpD Candidate Jp BolanosD, BCPS RIA is available daily [phone] via Secpanel Chat. If no response on Epic Chat then please page [phone]. * Shayne Fonseca MD - 06/20/2023 6:05 [...] off at this time. Please page resident manager corporate communications on Secure Chat with concerns or should [...] original note were not included. PHYSICAL THERAPY [facility] Initial Evaluation Name/MRN: Ezra Gonzalez ([id number]) Evaluation Date: 06/19/2023 Date of : 1935 Admission Date: 06/16/2023 1:38 PM Age: 87 y.o. Room/Bed: [facility]707/[facility]70 A Discharge Recommendation: Home with Home health PT (return to [place]) Equipment Needed: No Assessment IMPRESSION: 87 y.o. pt admitted to [facility] for closed fracture RUE, s/p ORIF R humerus 06/17. They were Min A for bed mobility, Min A for transfers, and Min A for ambulation. Pt limited d/t balance. If from [place] where she can receive Min A for all ADLs and mobility. Would recommend return to [place] and [facility] PTat discharge. Diagnosis: closed fracture RUE, [...] Ambulation Ambulation 1 Assistive device(s) used: DIGITAL MEDIA SPECIALIST Assist level: Min Assist Distance (ft): 15' [...] of Care supervision is transferred to a [facility] Therapy Services Physical Therapist. Goals and/or treatment plan was established in collaboration with patient/family/other representatives. * Enedelia Sanches [facility] - 06/19/2023 1:50 PM EDT [facility] Anticoagulation Management Service (RIA) Inpatient Warfarin Consult HPI: Ezra Gonzalez is a 87 y.o. female admitted on 06/16/2023 for Closed displaced fracture of medial condyle of right humerus, initial encounter [S42.847C] History reviewed. No pertinent past medical history. [...] patient can be classified as high risk ([id number] = 8). 2. Monitor for s/s of bleeding and drug interactions. Will adjust dose accordingly 3. RAI will manage while inpatient Dc Lombardi, PharmD Candidate Toshia Sanches, JpD, BCPS RIA is available daily [phone] via Gema. If no response on Secpanel Chat then please page [phone]. * Kavon Diallo, OT - 06/19/2023 11:54 AM EDT Images from the original note were not included. OCCUPATIONAL THERAPY [facility] Initial Evaluation Name/MRN: Ezra Gonzalez ([id number]) Evaluation Date: 06/19/2023 Date of : 1935 Admission Date: 06/16/2023 1:38 PM Age: 87 y.o. Room/Bed: E7707/[facility]707 A Discharge Recommendation: Continue to assess pending [...] of Care supervision is transferred to a [facility] Therapy Services Occupational Therapist. Goals and/or treatment plan was established in collaboration with patient/family/other representatives. * Connie Perez APRN - PAPER CUP MACHINE TENDER - 06/19/2023 9:52 AM EDT Images from the original note were not included. Hospitalist Progress Note 06/19/2023 Subjective: Admit Date: 06/16/2023 PCP: No primary care provider on file. Room#: J3-078/V1-162 A BRIEF HOSPITAL COURSE: Ezra is a [...] Primary Emergency Contact: MariiadennisPatito Mobile Relation: Son Dairy Farm Operator needed? No Secondary Emergency Contact: BereketTy Mobile Relation: Son JANNETTE Hall CNP Division of Hospitalist Medicine [facility] * Huma Tavarez MD - [...] be monitored and followed by the diet cinetechnician. NICA Watts * Louisa Cespedes OT - 06/18/2023 8:26 AM EDT Images from the original note were not included. OCCUPATIONAL THERAPY [facility] Name/MRN: Ezra Gonzalez ([id number]) Date: 06/18/2023 OT eval and treat order received. Patient chart reviewed. Per Ortho note, "Plan for ORIF od R distal humerus." Will hold evaluation till after surgery. Louisa Cespedes OT * Connie PerezJANNETTE - PAPER CUP MACHINE TENDER - 06/18/2023 8:00 AM EDT Images from the original note were not included. Hospitalist Progress Note 06/18/2023 Subjective: Admit Date: 06/16/2023 PCP: No primary care provider on file. Room#: E7-837/E7-010 A BRIEF HOSPITAL COURSE: Ezra is a [...] Contact Information Primary Emergency Contact: Pattio [place] Mobile Relation: Son Dairy Farm Operator needed? No Secondary Emergency Contact: BereketTy Mobile Relation: Son JANNETTE Hall CNP Division of Hospitalist Medicine Acute care [facility] * Maryanne Neumann, PT - 06/18/2023 7:27 AM EDT Images from the original note were not included. PHYSICAL THERAPY [facility] Name/MRN: Ezra Gonzalez ([id number]) Date: 06/18/2023 PT orders received and chart [...] tomorrow, 06/17. Ok for diet today. NPO @OK. Keep splint C/D/I. Evette Viera MD Orthopaedic Surgery, PGY-5 [phone] * Connie Perez APRN - PAPER CUP MACHINE TENDER - 06/17/2023 7:46 AM EDT Images from [...] Emergency Contact: Patito [place] Mobile Relation: Son Dairy Farm Operator needed? No Secondary Emergency Contact: Ty [...] + AIN/PIN/ulnar nerve functions documented in this [facility]03-22-2024 Miscellaneous Notes* Care Coordination - Unknown Case Management - 06/20/2023 2:58 PM EDT Patient Choice Patient Name: EZRA GONZALEZ Date of : 1935 All Providers Sent Referral Name: [facility] Phone: [phone] Address: [address] [place] [address] * Home Care - Vivian Bills RN - 06/20/2023 2:40 PM EDT Start PACC Note Home Health Referral Educated patient on Home Care and services available. Patient offered choice of available HHC and agreeable to PT/OT services with [facility]. Care Types: [...] is noted as yes - consider a CHOPPED STRAND OPERATOR evaluation once the patient returns home. START PATIENT REGISTRATION INFORMATION Order Information Order Signing Physician: Connie Perez APRN * Service Ordered RN ?: No Service Ordered PT ?: Yes Service Ordered OT ?: Yes Service Ordered ST ?: No Service Ordered CHOPPED STRAND OPERATOR?:No Service Ordered DIGITAL MEDIA SPECIALIST?: No Following Physician: ALEXANDRA HAGEN Following Physician Overseeing Physician: ALEXANDRA HAGEN (Required for Residents only) Agreeable to Follow? No Date/Time of Call 06/20/23 2:40 PM, Spoke with: LVM FOR OFFICE-CONFIRMED WITH JOSEP THIS IS HERPHYSICAN AND CAN SEE RECENT NOTES IN [facility] Care Coordination Same Day SOC?: No Primary Care Physician: ALEXANDRA HAGEN Primary Care Physician Primary Care Physician Address: [address] [facility] [address] / [facility] [address] Visit Instructions: N/A Service Discharge Location Type: Assisted Living Service Facility Name: [facility] Floor Facility: N/A Service Room No: 105 Demographics Patient Last Name: Lisa Patient First Name: Ezra Language/Communication Barrier: NONE Service Address: [address] [place] [address] [address] Service City: [facility] ST: [place] Service ZIP: [address] Service (home) Other phone numbers: No relevant phone numbers on file. Emergency Contact: Extended Emergency Contact Information Primary Emergency Contact: Patito [place] Mobile Relation: Son Dairy Farm Operator needed? No Secondary Emergency Contact: Ty [place] Mobile Relation: Son Admission Information Admit Date: 06/16/2023 Patient status at discharge: Inpatient Admitting Diagnosis: Closed displaced fracture of medial condyle of right humerus, initial encounter [S42.461A] Caregiver Information Caregiver First Name: NA Caregiver Last Name: NA Caregiver Relationship to Patient NA Caregiver Phone Number: NA Caregiver Notes: N/A Nail Your Mortgage-Tech List No END PATIENT REGISTRATION INFORMATION Pt [...] medications. Discharge Date: 06/20/23 Referral Source-PACC: (Hospital/Unit): [facility] / E7-707/E7-707 A End PACC [...] pt order lunch. Notified JAYME ELIZALDE and cardiac care unit nurse. . * Care Coordination - Shikha Gray RN - 06/20/2023 11:01 AM EDT I SPOKE WITH DONOVAN, CROWN PERFORATOR OPERATOR AT [facility]. THEY CAN TAKE PT BACK TODAY. THEY CAN PROVIDE TRANSPORTATION BACK TO FACILITY AROUND 3 PM. AWARE PT WILL NEED PT AT FACILITY, THEY USE [facility], DID LET HC LIAISON NOW. WENT [...] PM EDT Date: 06/16/2023 - 06/18/2023 Location: [facility] OR Name: Ezra Gonzalez, : 1935, Diagnosis Pre-op Diagnosis * Closed displaced fracture of medial condyle of right humerus, initial encounter [S42.546U] Post-op Diagnosis * Closed displaced fracture of medial condyle of right humerus, initial encounter [S42.461A] Procedures OPEN REDUCTION INTERNAL FIXATION RIGHT DISTAL HUMERUS 83107 - [place] OPTX HUMERAL SHFT FX W/PLATE/SCREWS W/WOCERCLAGE Surgeons * Benitez Givens - Primary Procedure Summary Anesthesia: * No anesthesia type entered * ASA: III Estimated Blood Loss: Minimal Drains: * None in log * Staff: Clinical Training Specialist: Vivian Herrera RN Scrub Person: Linda Alvarez [...] Limits Permission given to speak with patient screening representative/caregiver as indicated: No Confirmation of Payer with patient/family: Yes Payer Name: [facility] : No Confirmation of Primary Care Physician: [...] Transportation/Shopping: Assistance Provider Transportation/Shopping Assistance Provider Name: [address] Transportation Mode: Needs Assistance with Transportation [...] rest and pain control documented in this encounterSProMedica Flower [id number] Note* Care Coordination - Unknown Case Management - 06/20/2023 2:58 PM EDT Patient Choice Patient Name: EZRA GONZALEZ Date of : 1935 All Providers Sent Referral Name: [facility] Phone: [phone] Address: [address] [place] [address] [facility]Aajqcy99-73-8943 Note* Care Coordination - Unknown Case Management - 06/20/2023 2:58 PM EDT Patient Choice Patient Name: EZRA GONZALEZ Date of : 1935 All Providers Sent Referral Name: [facility] Phone: [phone] Address: [address] [place] [address] [facility] HospitalVoknop24-38-9631 Note* Home Care - Vivian Bills RN - 06/20/2023 2:40 PM EDT Start PACC Note Home Health Referral Educated patient on Home Care and services available. Patient offered choice of available HHC and agreeable to PT/OT services with [facility] - Home Care. Care Types: [...] is noted as yes - consider a CHOPPED STRAND OPERATOR evaluation once the patient returns home. START PATIENT REGISTRATION INFORMATION Order Information Order Signing Physician: Connie Perez APRN * Service Ordered RN ?: No Service Ordered PT ?: Yes Service Ordered OT ?: Yes Service Ordered ST ?: No Service Ordered CHOPPED STRAND OPERATOR?:No Service Ordered DIGITAL MEDIA SPECIALIST?: No Following Physician: ALEXANDRA HAGEN Following Physician Overseeing Physician: ALEXANDRA HAGEN (Required for Residents only) Agreeable to Follow? No Date/Time of Call 06/20/23 2:40 PM, Spoke with: LVM FOR OFFICE-CONFIRMED WITH DECATUR THIS IS HERPHYSICAN AND CAN SEE RECENT NOTES IN [facility] Care Coordination Same Day SOC?: No Primary Care Physician: ALEXANDRA HAGEN Primary Care Physician Primary Care Physician Address: [address] [place] [address] / [address] Visit Instructions: N/A Service Discharge Location Type: Assisted Living Service Facility Name: [facility] Floor Facility: N/A Service Room No: 105 Demographics Patient Last Name: Lisa Patient First Name: Ezra Language/Communication Barrier: NONE Service Address: [address] [place] [address] 105 Service City: [facility] ST: [place] Service ZIP: [address] Service (home) Other phone numbers: No relevant phone numbers on file. Emergency Contact: Extended Emergency Contact Information Primary Emergency Contact: Patito Cuba Mobile Relation: Son Dairy Farm Operator needed? No Secondary Emergency Contact: Ty Cuba Mobile Relation: Son Admission Information Admit Date: 06/16/2023 Patient status at discharge: Inpatient Admitting Diagnosis: Closed displaced fracture of medial condyle of right humerus, initial encounter [S47.959C] Caregiver Information Caregiver First Name: NA Caregiver Last Name: NA Caregiver Relationship to Patient NA Caregiver Phone Number: NA Caregiver Notes: N/A [employer] List No END PATIENT REGISTRATION INFORMATION Pt [...] medications. Discharge Date: 06/20/23 Referral Source-PACC: (Hospital/Unit): [facility] / E7-707/E7-707 A End PACC Note [facility]Xxabmc30-34-2162 Note* Home Care - Vivian Bills RN - 06/20/2023 2:40 PM EDT Start PACC Note Home Health Referral Educated patient on Home Care and services available. Patient offered choice of available HHC and agreeable to PT/OT services with [facility] - [facility]. Care [...] is noted as yes - consider a CHOPPED STRAND OPERATOR evaluation once the patient returns home. START PATIENT REGISTRATION INFORMATION Order Information Order Signing Physician: Connie Perez APRN * Service Ordered RN ?: No Service Ordered PT ?: Yes Service Ordered OT ?: Yes Service Ordered ST ?: No Service Ordered CHOPPED STRAND OPERATOR?:No Service Ordered DIGITAL MEDIA SPECIALIST?: No Following Physician: ALEXANDRA HAGEN Following Physician Overseeing Physician: ALEXANDRA HAGEN (Required for Residents only) Agreeable to Follow? No Date/Time of Call 06/20/23 2:40 PM, Spoke with: BRYAN FOR OFFICE-CONFIR[facility] THIS IS HERPHYSICAN AND CAN SEE RECENT NOTES IN [facility] Care Coordination Same Day SOC?: No Primary Care Physician: ALEXANDRA HAGEN Primary Care Physician Primary Care Physician Address: [address] [place] [address] 105 / [facility] [id number] Visit Instructions: N/A Service Discharge Location Type: Assisted Living Service Facility Name: [facility] Floor Facility: N/A Service Room No: 105 Demographics Patient Last Name: Lisa Patient First Name: Ezra Language/Communication Barrier: NONE Service Address: [address] [place] [address] 105 Service City: [facility] ST: [place] Service ZIP: [address] Service (home) Other phone numbers: No relevant phone numbers on file. Emergency Contact: Extended Emergency Contact Information Primary Emergency Contact: Patito [place] Mobile Relation: Son Dairy Farm Operator needed? No Secondary Emergency Contact: Ty [place] Mobile Relation: Son Admission Information Admit Date: 06/16/2023 Patient status at discharge: Inpatient Admitting Diagnosis: Closed displaced fracture of medial condyle of right humerus, initial encounter [S44.532M] Caregiver Information Caregiver First Name: NA Caregiver Last Name: NA Caregiver Relationship to Patient NA Caregiver Phone Number: NA Caregiver Notes: N/A [employer] List No END PATIENT REGISTRATION INFORMATION Pt [...] medications. Discharge Date: 06/20/23 Referral Source-PACC: (Hospital/Unit): [facility] / E7-707/E7-707 A End PACC Note [facility] HospitalAndjfj68-19-3068 NoteHospitalist Discharge Summary Ezra Gonzalez : 1935 [...] provider Schedule (more content not included)...[facility]03-22-2024 Note* Care Coordination - SELINA Magaña [...] pt order lunch. Notified TONIO, RN and cardiac care unit nurse. . [facility] HospitalPzucez82-79-9937 Note* Care Coordination - SELINA Magaña - [...] pt order lunch. Notified TONIO, RN and cardiac care unit nurse. . [facility] HospitalTyflgm21-55-8358 Note* Care Coordination - Shikha Gray RN - 06/20/2023 11:01 AM EDT I SPOKE WITH DONOVAN, CROWN PERFORATOR OPERATOR AT [facility]. THEY CAN TAKE PT BACK TODAY. THEY CAN PROVIDE TRANSPORTATION BACK TO FACILITY AROUND 3 PM. AWARE PT WILL NEED PT AT FACILITY, THEY USE [facility], DID LET HC LIAISON NOW. WENT [...] SECURE CHAT WITH CONNIE PEREZ REGARDING THIS. [facility] HospitalCcgqcj98-17-7895 Note* Care Coordination - Shikha Gray RN - 06/20/2023 11:01 AM EDT I SPOKE WITH DONOVAN, CROWN PERFORATOR OPERATOR AT [facility]. THEY CAN TAKE PT BACK TODAY. THEY CAN PROVIDE TRANSPORTATION BACK TO FACILITY AROUND 3 PM. AWARE PT WILL NEED PT AT FACILITY, THEY USE [facility], DID LET HC LIAISON NOW. WENT [...] SECURE CHAT WITH CONNIE PEREZ REGARDING THIS. [facility] HospitalMbspez34-35-9603 Hospital course Narrative* Connie Perez, SVP - PAPER CUP MACHINE TENDER - 06/20/2023 10:18 AM EDT Images from [...] as possible for a visit As needed [facility] Go to Appointment scheduled 06/26/23 at 10:[address] Givens. [address] [facility] Complexity of Follow up: [x] Moderate Complexity: follow up within 7-14 calendar days (13183) [] Severe Complexity: follow up within 7 calendar days (03765) Follow up Testing, Pending results or Referrals [...] time frame. Signed: Connie Perez APRN - [facility] Division of Hospitalist Medicine [facility] 06/20/2023, 1:11 PM documented in this [facility]03-22-2024 NoteDepartment of Orthopedic Surgery Progress [...] off at this time. Please page resident manager corporate communications on Secure Chat with concerns or should [...] in all distributions -Motor function intact to AIN/PIN/UlnarBar[facility]ton [facility] System [id number] Note PHYSICAL THERAPY [facility] Initial Evaluation Name/MRN: Ezra Gonzalez ([id number]) Evaluation Date: 06/19/2023 Date of : 1935 Admission Date: 06/16/2023 1:38 PM Age: 87 y.o. Room/Bed: E7-707/E7707 A Discharge Recommendation: Home with Home health PT (return to [place]) Equipment Needed: No Assessment IMPRESSION: 87 y.o. pt admitted to [facility] for closed fracture RUE, s/p ORIF R humerus 06/17. They were Min A for bed mobility, Min A for transfers, and Min A for ambulation. Pt limited d/t balance. If from [place] where she can receive Min A for all ADLs and mobility. Would recommend return to [place] and [facility] PT at discharge. Diagnosis: closed fracture [...] Ambulation Ambulation 1 Assistive device(s) used: DIGITAL MEDIA SPECIALIST Assist level: Min Assist Distance (ft): 15' [...] FA) Dillon (more content not included)...[facility]03-21-2024 Note* Care Coordination - Shikha Gray RN - 06/19/2023 2:05 PM EDT DAY #1 S/P ORIF OF RIGHT ARM. WAITING FOR PT/OT EVALS FOR DC PLANNING. [facility] HospitalVnxqjj89-84-2337 Note* Care Coordination - Shikha Gray RN - 06/19/2023 2:05 PM EDT DAY #1 S/P ORIF OF RIGHT ARM. WAITING FOR PT/OT EVALS FOR DC PLANNING. [facility] HospitalCcpycv01-97-4196 NoteOCCUPATIONAL THERAPY [facility] Initial Evaluation Name/MRN: Ezra Gonzalez ([id number]) Evaluation Date: 06/19/2023 Date of : 1935 Admission Date: 06/16/2023 1:38 PM Age: 87 y.o. Room/Bed: [facility]70/[facility] A Discharge Recommendation: Continue [...] End: 07/17/23 (more content not included)...[facility]03-21-2024 Note Hospitalist Progress Note 06/19/2023 Subjective: Admit Date: 06/16/2023 PCP: No primary care provider on file. Room#: E7-297/E7-180 A BRIEF HOSPITAL COURSE: Ezra is a [...] Eating and drinking fair, looking forward to [place]. Understands likely not back to [place] as [...] Anticipated Dischar (more content not included)...[facility] 06-19-2023 NoteDepartment of Orthopedic Surgery Progress [...] -Sensation and motor exam limited 2/2 block intactCorewell Health Reed City Hospital 06-18-2023 NotePatient: Ezra Gonzalez Procedure Summary Date: 06/18/23 Room / Location: [facility] Operating Room Anesthesia Start: 1541 Anesthesia Stop: [...] all PACU criteria has been met.[facility] [id number] NotePatient: Ezra Gonzalez Procedure Summary Date: 06/18/23 Room / Location: [facility] Operating Room Anesthesia Start: 1541 Anesthesia Stop: [...] for questions and acknowledgement of understanding.[facility]03-20-2024 Note* Perioperative Nursing Note - Irina Khan RN - 06/18/2023 8:11 PM EDT Pt states no need to contact family. RN on floor states she will call pt's son,. [facility] HospitalGxjrag45-95-3992 Note* Perioperative Nursing Note - Irina Khan RN - 06/18/2023 8:11 PM EDT Pt states no need to contact family. RN on floor states she will call pt's son,. [facility] HospitalGopflg24-56-4460 NoteAirway Date/Time: 06/18/2023 3:56 PM Urgency: scheduled General Information and Staff Patient location during procedure: Procedural Resident/PAPER SEALER: Sae Lora CRNA Performed: PAPER SEALER Indications and Patient Condition Indications for airway [...] (cm): 21 Number of attempts at approach: [address] [place], [place] [address]3-20-2024 Note Peripheral IV Date/Time: 06/18/2023 4:00 PM Inserted by: JANNETTE Ivey CRNA Placement Needle size: 20 G Laterality: left Location: upper arm. Local anesthetic: none Site prep: alcohol Technique: ultrasound guided Attempts: [address] [place], [place] [address]-20-2024 NotePeripheral Block Time Out: 06/18/2023 3:28 PM Patient location during procedure: Procedural Start time: 06/18/2023 3:28 PM End time: 06/18/2023 3:32 PM Reason for block: at surgeon's request and post-op pain management Staffing Performed: WAQAS Resident/PAPER SEALER: JANNETTE Ivey CRNA Preanesthetic Checklist Completed: patient [...] No paresthesias reported by patient during injectionMedications qivMKOTPcfkab-oeyltulovqs-tbiffvolyck (TAP) syringe - Injection 30 mL - 06/18/2023 3:28:00 [facility] [id number] NotePatient: Ezra Gonzalez Procedure Information Date/Time: 06/18/23 1530 Procedure: OPEN REDUCTION INTERNAL FIXATION RIGHT DISTAL HUMERUS (Right: Arm Upper) - requesting 330, if can't go at 330 will consider friday Location: [facility] OR [address] [place] [address] Operating Room Surgeons: Benitez Givens MD Relevant [...] by: Thong Francois DO on 06/17/2023 6:39 [facility] 06-18-2023 Hospital Discharge instructions* Discharge Instructions* [...] Emergency Contact: Patito Cuba Mobile Relation: Son Dairy Farm Operator needed? No Secondary Emergency Contact: Ty Cuab Mobile Relation: Son Past Surgical History: Past [...] (78.9 kg) Mental Status: {MITCHEL Patient Mental Status:42219} IV Access: {MITCHEL IV Access:93020} Nursing Mobility/ADLs: Walking {MALLY ADL:::"Independent"} Transfer {MALLY ADL:::"Independent"} Bathing {MALLY ADL:::"Independent"} Dressing {MALLY ADL:::"Independent"} Toileting {MALLY ADL:::"Independent"} Feeding {MALLY ADL:::"Independent"} Yardage Control Operator {MALLY ADL:::"Independent"} Med Delivery {yes/no:65841} Wound Care Documentation and Therapy: Wound/Incision 06/18/23 Incision Arm Anterior;Right;Upper (Active) Site Assessment Clean;Dry 06/19/232147 Treatments Sling 06/19/232147 Primary Dressing Xeroform 06/19/23 1024 Dressing Status Clean, dry & intact 06/19/232147 Number of days: 1 Elimination: Continence: Bowel: {yes/no:08419} Bladder: {yes/no:79250} Urinary Catheter: {MITCHEL Urinary Catheter:84203} Colostomy/Ileostomy/Ileal Conduit: {YES / NO:} Date of Last BM: No intake or output data in the 24 hours ending 06/20/23 1025 I/O last 3 completed shifts: In: 711 (9 mL/kg) [P.O.:280; I.V.:114 (1.4 mL/kg); IV Piggyback:317] Out: 600 (7.6 mL/kg) [Urine:350 (0.1 mL/kg/hr); Blood:250] Weight: 78.9 kg Safety Concerns: {MITCHEL Safety Concerns:58771} Impairments/Disabilities: {MITCHEL Impairments/Disabilities:92264} Nutrition Therapy: Current Nutrition Therapy: {MITCHEL Diet List:79954} Routes of Feeding: {routes of feedin} Liquids: {liquid consistency:95012} Daily Fluid Restriction: {daily fluid restriction:29940} Last Modified Barium Swallow with Video (Video Swallowing Test): {done not done:34870} Treatments at the Time of Hospital Discharge: Respiratory Treatments: Oxygen Therapy: {Therapy; copd oxygen:68228} Ventilator: {MITCHEL Ventilator:79088} Rehab Therapies: {GEN THERAPY DISCIPLINE SCAL:6136092} Weight Bearing Status/Restrictions: {POD WEIGHT BEARIN} Other Medical Equipment (for information only, NOT a DME order): {Assistive Devices DME:85222} Other Treatments: Patient's personal belongings (please select all that are sent with patient): {MITCHEL Patient Belongings:65880} RN SIGNATURE: {E-signature:04506} CASE MANAGEMENT/SOCIAL WORK SECTION Inpatient Status Date: 06/16/23 Readmission Risk Assessment Score: @READMISSIONRISKDETAILS@ Discharging to Facility/ Agency Discharging to Facility/ Agency Name: [facility] Address: [address] [place] [address] Name: [facility] [place] Address:[address] [place] [address] ~28.4 mi Fax: Dialysis Facility (if applicable) Name: Address: Dialysis Schedule: Phone: Fax: [facility]in [facility]er/Hospice Home Health Aide signature: ICIAN SECTION Prognosis: good Condition at [...] in H&P PHYSICIAN SIGNATURE: documented in this [facility]03-20-2024 Note* Brief Op Note - [...] OPEN REDUCTION INTERNAL FIXATION RIGHT DISTAL HUMERUS 18567 - SC OPTX HUMERAL SHFT FX W/PLATE/SCREWS W/WOCERCLAGE Surgeons * Benitez Givens - Primary Procedure Summary Anesthesia: * No anesthesia type entered * ASA: III Estimated Blood Loss: Minimal Drains: * None in log * Staff: Clinical Training Specialist: Vivian Herrera RN Scrub Person: Linda Alvarez [...] Givens in 2 weeks -Ortho to follow. [employer] Phone: 1(722) 277-434103-20-2024 Note* Brief Op Note - Lexa Aparicio MD - 06/18/2023 3:42 PM EDT Date: 06/16/2023 - 06/18/2023 Location: [facility] OR Name: Ezra Gonzalez, : 1935, Diagnosis Pre-op Diagnosis * Closed displaced fracture of medial condyle of right humerus, initial encounter [S42.692S] Post-op Diagnosis * Closed displaced fracture of medial condyle of right humerus, initial encounter [S42.460J] Procedures OPEN REDUCTION INTERNAL FIXATION RIGHT DISTAL HUMERUS 17811 - [place] [employer]X HUMERAL SHFT FX W/PLATE/SCREWS W/WOCERCLAGE Surgeons * Benitez Givens - Primary Procedure Summary Anesthesia: * No anesthesia type entered * ASA: III Estimated Blood Loss: Minimal Drains: * None in log * Staff: Clinical Training Specialist: Vivian Herrera RN Scrub Person: Linda Alvarez [...] Givens in 2 weeks -Ortho to follow. [employer] Phone: [phone]) 201-152103-20-2024 Note* Perioperative Nursing Note - Deisy Gonzalez RN - 06/18/2023 3:29 PM EDT Patients wallet and watch locked up with security. OR notified patient states she has latex allergy Patients purse and glasses taken to pacu [facility] HospitalFfdchu30-03-9350 Note* Perioperative Nursing Note - Deisy Gonzalez RN - 06/18/2023 3:29 PM EDT Patients wallet and watch locked up with security. OR notified patient states she has latex allergy Patients purse and glasses taken to pacu [facility] HospitalOuttun39-72-3277 Note* Care Coordination - Shikha Gray RN - 06/18/2023 1:03 PM EDT Care Managment Initial Assessment Date: 06/18/2023 Patient Name: Ezra Gonzalez : 1935 Patient Information Source of Information: Patient Cognition/Language: WFL - Within Functional Limits Permission given to speak with patient screening representative/caregiver as indicated: No Confirmation of Payer with patient/family: Yes Payer Name: [facility] [place]: No Confirmation of Primary Care Physician: Confirmed [...] WILL CONTINUE TO FOLLOW. Shikha Gray RN [facility] HospitalCkkyud99-54-6200 Note* Care Coordination - Shikha Gray RN - 06/18/2023 1:03 PM EDT Care Managment Initial Assessment Date: 06/18/2023 Patient Name: Ezra Gonzalez : 1935 Patient Information Source of Information: Patient Cognition/Language: WFL - Within Functional Limits Permission given to speak with patient screening representative/caregiver as indicated: No Confirmation of Payer with patient/family: Yes Payer Name: [facility] [place]: No Confirmation of Primary Care Physician: Confirmed [...] WILL CONTINUE TO FOLLOW. Shikha Gray RN [facility] HospitalQbygwf03-39-2432 NoteHospitalist Progress Note 06/18/2023 Subjective: Admit Date: 06/16/2023 PCP: No primary care provider on file. Room#: -557/-958 A BRIEF HOSPITAL COURSE: Ezra is a [...] Emergency Contact: Patito Cuba Mobile Relation: Son Dairy Farm Operator needed? No Se (more content not included)...[facility] [id number] Note Department of Orthopedic Surgery Progress Note [...] distributions -Motor + AIN/PIN/ulnar nerve functionsCorewell Health [facility]03-19-2024 Plan of care note* Care Plan - Yvan Sepulveda RN - 06/17/2023 11:35 PM EDT The patient is Moderately Stable - Low risk of patient condition declining or worsening The patient's goals for the shift include rest and pain control The clinical goals for the shift include rest and pain control [facility]Jjdpkt93-06-3003 Nurse Note* Yvan Sepulveda RN - 06/17/2023 9:22 PM EDT Patient home medication list updated, provider made aware. [facility] HospitalCwbvfh07-88-8910 Nurse Note* Yvan Sepulveda RN - 06/17/2023 9:22 PM EDT Patient home medication list updated, provider made aware. documented in this [facility]03-19-2024 Emergency department Note* Di Reyna RN - 06/17/2023 11:52 AM EDT Patient resting in bed at this time, equal unlabored respirations noted and no acute distress, callbell within reach Di Reyna RN 06/17/23 1153 [facility] HospitalYehisl17-27-1937 Emergency department Note* Di Reyna RN - [...] US IV line. Juanjo Pringle RN 06/16/23 7816 * NADIA Ruiz - 06/16/2023 12:38 PM [...] injury anywhere else. Patient was evaluated at [facility] emergency department prior to arrival and was noted to have a distal humerus fracture. Patient was transferred to [facility] ED for orthopedic consultation. Patient denies [...] Report Dictated on Electronically Signed By: Pastor rFancisco MD Electronically Signed Date/Time: 06/16/2023 3:24 PM [...] Culture. Procedure Abnormality Status --------- ------ Complete Urinalysis[[id number]] Please view results for these tests on [...] right arm injury. Patient was seen at [facility] prior to arrival was noted to have a distal humerus fracture. Patient transferred to [facility] ED for orthopedic consultation. Nursing notes [...] screen, x-ray right elbow. CT head from [facility] ED -shows no signs of acute cranial abnormalities. CXR from [facility] ED prior to arrival -blunting of bilateral [...] 06/16/2023 12:38 PM EDT Emergency Department Encounter [facility] EMERGENCY DEPT Patient: Ezra Gonzalez : [...] for clarification.) Sae Conde MD Acute Care [facility] Sae Conde MD 06/16/23 1626 documented in this [facility]03-19-2024 Emergency department Note* Alia Foster RN - 06/17/2023 10:00 AM EDT Pt O2 desaturating to mid 80s after receiving dilaudid IV. Pt placed on 2L NC and immediately back up to 95%. notified Alia Foster RN 06/17/23 1031 [facility] HospitalWedwic36-21-5728 NoteHospitalist Progress Note 06/17/2023 Subjective: Admit Date: [...] Emergency Contact: Patito Cuba Mobile Relation: Son Dairy Farm Operator needed? No Secondary Emergency Contact: Ty Cuba Mobile Relation: Son Connie PerezJANNETTE - PAPER CUP MACHINE TENDER Division of Hospitalist Medicine [facility]03-19-2024 NoteDepartment of Orthopedic Surgery Progress Note [...] distributions -Motor + AIN/PIN/ulnar nerve functionsCorewell Health [facility]03-18-2024 Emergency department Note* Juanjo Pringle RN [...] US IV line. Juanjo Pringle RN 06/16/23 2202 [facility] HospitalDyyxgv07-74-4795 NoteAttending History and Physical Admit Date: 06/16/2023 [...] am labs, (more content not included)...[facility]03-18-2024 History and physical note* Jayshree Cortez [...] Emergency Contact: Patito Cuba Mobile Relation: Son Dairy Farm Operator needed? No Secondary Emergency Contact: Ty Cuba Mobile Relation: Son Jayshree Cortez MD Division of Hospitalist Medicine [facility] [employer] Phone: 1(606) 590-448203-18-2024 History and physical note* Jayshree Cortez MD [...] Emergency Contact: Patito Cuba Mobile Relation: Son Dairy Farm Operator needed? No Secondary Emergency Contact: Ty [place] Mobile Relation: Son Jayshree Cortez MD Division of Hospitalist Medicine [facility] documented in this [facility]03-18-2024 Physician Emergency department Note* NADIA [...] injury anywhere else. Patient was evaluated at [facility] emergency department prior to arrival and was noted to have a distal humerus fracture. Patient was transferred to [facility] ED for orthopedic consultation. Patient denies [...] Culture. Procedure Abnormality Status --------- ------ Complete Urinalysis[[id number]] Please view results for these tests on [...] right arm injury. Patient was seen at [facility] prior to arrival was noted to have a distal humerus fracture. Patient transferred to [facility] ED for orthopedic consultation. Nursing notes [...] screen, x-ray right elbow. CT head from [facility] ED -shows no signs of acute cranial abnormalities. CXR from [facility] ED prior to arrival -blunting of bilateral [...] Emergency Medicine Provider NADIA Ruiz 06/16/23 1635 [facility] HospitalWvniny20-94-7209 Physician Emergency department Note* Sae Conde MD - 06/16/2023 12:38 PM EDT Emergency Department Encounter [facility] EMERGENCY DEPT Patient: Ezra Gonzalez : [...] for clarification.) Sae Conde MD Acute Care [facility] Sae Conde MD 06/16/23 1626 [employer] Phone: [phone] 574-697709-30-2023 Discharge summary Author Lali Pimentel [facility] December 27, 2022 10:31pm Note Date/Time December 27, 2022 3:52pm [facility] Medical Records Department [address] [place] [address] Emergency Department Summary 12/27/22 MR#: [id number] Acct: [id number] Name: EZRA GONZALEZ Rep #:[id number] : 1935 87 From: Lali Pimentel MD PCP: Dr. Rosemary Doran MD Status:ADM MARIELOS Location: [address] History of Present Illness Chief Complaint: [...] repeat a phrase her speech is garbled. [facility] Medical History Atherosclerotic heart disease of robinson coronary artery without angina pectoris Chronic diastolic [...] % (Auto) 57.4 Lymph % (Auto) 27.9 Bond % (Auto) 10.8 H Eos % (Auto) [...] troponin is normal at 10. Neurology from [facility] felt that the patient should be [...] Provider] - Disposition Disposition: Acute Care Hospital [facility] What to do if you have Problems For any increased pain, shortness of breath, bleeding, nausea or vomiting, chestpain, or any unexpected problems, contact your Primary Care Provider. Call [facility] ([phone]) or report to the closest Emergency Room. Call 911 if necessary. 12/27/22 9749 <Electronically signed by Lali Pimentel MD> Cosigner Signature (if applicable): CC: Dr. Rosemary Doran MD ~ Signed [facility] Work Phone: [phone] History and physical note Author Lynn Horn [facility] December 27, 2022 6:54pm Note Date/Time December 27, 2022 5:12pm [facility] Medical Records Department [address] [place] [address] H&P Exam - Hospitalist 12/27/22 1709 MR#: [id number] Acct: [id number] Name: EZRA GONZALEZ Rep #:[id number] : 1935 87 From: Lynn Horn DO PCP: Dr. Rosemary Doran MD Status:ADM MARIELOS Location: [place] [address] HPI - General General Date of Admission: 12/27/22 Date of Service: 12/27/22 Chief Complaint: Speech abnormalities HPI Narrative EZRA GONZALEZ, is a 87 F who presented to the emergency department at [facility] on 12/27/2022 with speech abnormalities that started after 1 PM this afternoon. She resides at [facility]. She was last known well at [...] will add aspirin 81 mg as well [facility] Medical History Atherosclerotic heart disease of robinson coronary artery without angina pectoris Chronic diastolic [...] % (Auto) 57.4, Lymph % (Auto) 27.9, Bond % (Auto) 10.8 H, Eos % (Auto) [...] on admission Charges/Coding Visit Charges Inpatient E&M: 51651 Init Hosp L2 12/27/22 1854 <Electronically signed by Lynn Horn DO> Cosigner Signature (if applicable): CC: Dr. Rosemary Doran MD; Dr. Lynn Horn DO~ Signed [facility] Work Phone: [phone] 982-260809-14-2023 Discharge summary Author María Crane [facility] December 12, 2022 1:40pm Note Date/Time December 12, 2022 1:40pm [facility] [address] [place] [address] / REHABILITATION SERVICES DISCHARGE SUMMARY MR#: [id number] Acct: [id number] Name: EZRA GONZALEZ Rep #: [id number] : 1935 87 From: María Bo Referring Dr.: Dr. Anant Juarez MD Status: REG [facility] Insurance: [facility] [id number] SELF PAY INSURANCE Patient Information Patient Information: [...] Dr. Anant Juarez MD ~ ELR Signed [facility] Work Phone: [phone] Evaluation note* Diagnosis Onset Date Resolution Status Chronic diastolic (congestive) heart failure chronic Essential (primary) hypertension chronic Paroxysmal atrial fibrillation chronic History of coronary artery stent placement February 142006 resolved [facility] Work Phone: [phone] Evaluation note* Diagnosis Onset Date Resolution Status Chronic diastolic (congestive) heart failure chronic Essential (primary) hypertension chronic History of coronary artery stent placement February 142006 resolved Brain TIA resolved Carotid stenosis acute Difficulty with speech acute Dysarthria resolved Polyneuropathy acute [facility] Work Phone: [phone] Evaluation note* Diagnosis Onset Date Resolution Status Chronic diastolic (congestive) heart failure chronic Essential (primary) hypertension chronic History of coronary artery stent placement February 142006 resolved Brain TIA resolved Carotid stenosis acute Difficulty with speech acute Dysarthria resolved Abnormality of gait and mobility acute Carotid stenosis acute Dementia acute Polyneuropathy acute Transient ischemic attack re solved [facility] Work Phone: [phone] Evaluation note* Diagnosis Onset Date Resolution Status Longstanding persistent atrial fibrillation acute Essential (primary) hypertension chronic History of coronary artery stent placement February 142006 resolved Dementia acute Epilepsy acute Polyneuropathy acute Transient ischemic attack re solved [facility] Work Phone: Consult note Author Kvng Carney [facility] June 16, 2023 10:15am Note Date/Time June 16, 2023 10: 14am [facility] Medical Records Department [address] [place] [address] Consultation - Orthopedics 06/16/23 1012 MR#: [id number] Acct: [id number] Name: EZRA GONZALEZ Rep #:[id number] : 1935 87 From: Kvng Carney MD PCP: Dr. Rosemary Doran MD Status:REG ER Location: ED HPI Consult Data Date of Consult: 06/16/23 HPI Narrative HPI Narrative: EZRA GONZALEZ, is a 87 F who presents with a right distal humerus fracture. Patient apparently is in correction there a fall. According to the ED physician Dr. Mack who called me today this is a closed neurovascularly intact injury. [facility] Medical History (Updated 06/16/23 @ 10:13 by Kvng Carney MD) Atherosclerotic heart disease of robinson coronary artery without angina pectoris Chronic diastolic [...] % (Auto) 67.8, Lymph % (Auto) 23.0, Bond% (Auto) 7.0, Eos % (Auto) 1.3, Baso [...] applicable): CC: Dr. Rosemary Doran MD~ Signed [facility] Work Phone: Discharge summary Author Neri Mitchell [facility] November 14, 2022 11:57am Note Date/Time November 14, 2022 11 :10am [facility] Medical Records Department [address] [place] [address] Emergency Department Summary 11/14/22 MR#: [id number] Acct: [id number] Name: EZRA GONZALEZ Rep #:[id number] : 1935 87 From: Neri Mitchell MD [...] is on warfarin has history of TIAs. [facility] Medical History Atherosclerotic heart disease of robinson coronary artery without angina pectoris Chronic diastolic [...] deficits noted Neuro Narrative: Aphasic. Follows commands. [place] Coma Scale: document GCS findings Spontaneous Obeys [...] % (Auto) 64.0 Lymph % (Auto) 24.9 Bond % (Auto) 7.8 Eos % (Auto) 2.4 [...] No evidence for large vessel occlusion the [place]. N.B. : The above Results were Read Back by Ban Avila MD to Neri Mitchell MD, and understanding confirmed on 11/14/2022 11:41:26 (ET). Electronically Signed: Ban Avila MD at 11:41 EDT , ADDENDUM: 11/14/22 1148 IMPRESSION: No evidence for significant stenosis or occlusion in the carotid or vertebral arteries of the neck. No evidence for large vessel occlusion the [place]. N.B. : The above [...] Fibrillation Management Discussion w/another healthcare provider: Hospitalist, Crane Assembler (Stroke neurology Dr. Tamez) and Radiologist (At 1121 for NCCT, negative for bleed) Stroke Documentation Questions Stroke Team Activated: Yes Critical Care Time Critical Care Time: Yes Critical care time (excluding procedures): 30-74 minutes (37 min), Including time spent:, Discussing w/Patient &/or Family/Gold Prospector, Discussing w/Consultants, Arranging Admission or Transfer and Performing Direct Patient Care at Bedside Discharge Plan Dx/Rx/DC Orders Clinical Impression: Brain TIA, Paroxysmal atrial fibrillation, Subtherapeutic international normalized ratio (INR) Disposition Disposition: Acute Care Hospital [facility] What to do if you have Problems For any increased pain, shortness of breath, bleeding, nausea or vomiting, chestpain, or any unexpected problems, contact your Primary Care Provider. Call [facility] ([phone]) or report to the closest Emergency Room. Call 911 if necessary. 11/14/22 1157 <Electronically signed by Neri Mitchell MD> Cosigner Signature (if applicable): CC: Dr. Rosemary Doran MD ~ Signed [facility] Work Phone: Discharge summary Author Sae Carballo [facility] December 28, 2022 11:09am Note Date/Time December 28, 2022 11:08am [facility] Medical Records Department [address] [place] [address] Instructions for Home/Discharge Instructions 12/28/22 1107 MR#: [id number] Acct: [id number] Name: EZRA GONZALEZ Rep #:[id number] : 1935 87 From: Sae fleming MD [...] MD; Dr. 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 Chronic diastolic (congestive) heart failure chronic Essential (primary) hypertension chronic Hyperlipidemia chronic Paroxysmal atrial fibrillation chronic [facility] Work Phone: Evaluation note* Diagnosis Onset Date Resolution Status Abnormality of gait and mobility acute Carotid stenosis acute Dementia acute Polyneuropathy acute Transient ischemic attack re solved [facility] Work Phone: evaluation note* Diagnosis Onset Date Resolution Status Abnormality of gait and mobility acute Carotid stenosis acute Dementia acute Polyneuropathy acute Transient ischemic attack re solved Chronic diastolic (congestive) heart failure chronic Essential (primary) hypertension chronic Paroxysmal atrial fibrillation chronic History of coronary artery stent placement February 142006 resolved [facility] Work Phone: Evaluation note* Diagnosis Onset Date Resolution Status Abnormality of gait and mobility acute Carotid stenosis acute Dementia acute Polyneuropathy acute Transient ischemic attack re solved Chronic diastolic (congestive) heart failure chronic Essential (primary) hypertension chronic Paroxysmal atrial fibrillation chronic History of coronary artery stent placement February 142006 resolved Brain TIA acute Subtherapeutic international normalized ratio (INR) acute Paroxysmal atrial fibrillation chronic [facility] Work Phone: evaluation note* Diagnosis Onset Date Resolution Status Abnormality of gait and mobility acute Carotid stenosis acute Dementia acute Polyneuropathy acute Transient ischemic attack re solved Chronic diastolic (congestive) heart failure chronic Essential (primary) hypertension chronic History of coronary artery stent placement February 142006 resolved Brain TIA resolved Carotid stenosis acute [facility] Work Phone: evaluation note* Diagnosis Onset Date Resolution Status Abnormality of gait and mobility acute Carotid stenosis acute Dementia acute Polyneuropathy acute Transient ischemic attack re solved Chronic diastolic (congestive) heart failure chronic Essential (primary) hypertension chronic History of coronary artery stent placement February 142006 resolved Brain TIA resolved Carotid stenosis acute Difficulty with speech acute Dysarthria acute [facility] Work Phone: Evaluation note* Diagnosis Onset Date Resolution Status Brain TIA resolved Carotid stenosis acute Difficulty with speech acute Dysarthria resolved Abnormality of gait and mobility acute Carotid stenosis acute Dementia acute Polyneuropathy acute Transient ischemic attack re solved [facility] Work Phone: Evaluation note* Diagnosis Onset Date Resolution Status Dementia acute Epilepsy acute Polyneuropathy acute Transient ischemic attack re solved [facility] Work Phone: Evaluation note* Diagnosis Onset Date Resolution Status Dementia acute Epilepsy acute Polyneuropathy acute Transient ischemic attack re solved Longstanding persistent atrial fibrillation acute Essential (primary) hypertension chronic History of coronary artery stent placement February 142006 resolved Dementia acute Epilepsy acute Polyneuropathy acute Transient ischemic attack re solved [facility] Work Phone: Evaluation note* Diagnosis Closed displaced fracture of medial condyle of right humerus, initial encounter- Primary Closed displaced fracture of medial condyle of right humerus, initial encounter documented [facility] this [facility] Additional Instructions Your work-up today does not show signs of heart attack or heart damage. Your Coumadin level/INR is therapeutic at 2.7. Please follow-up with your family doctor for repeat evaluation or return to the ER if you have any further [facility] Work Phone: Hospital Discharge instructionsAmbulatory Orders* Physical Therapy Referral Location: None Selected [facility] Work Phone: Hospital Discharge instructions Additional Instructions Will need to follow-up Lamictal level since it is a send out. Recommend follow- up appointment with her neurologist Dr. [facility]WP[facility] Work Phone: Reason for referral (narrative)No reason for referral information availableWPomerene Hospital Work Phone: Summary Purpose Family History No Family History Records Found Relationship Condition Age at Onset Recorded Date/T maggy father Coronary artery disease Unknown brother Coronary artery disease Unknown Advance Directives No Advanced Directives Records Found Advance Directive Response Recorded Date/ Time Advance Directives Yes November 10:13am Living Will No February 11 12:11am Power of Tearoom Hostess No November 14th, 2022 12:11am Advance Directive Response Recorded Date/ Time Advance Directives Yes November 11:13am Living Will No February 11 022 1:11am Power of Tearoom Hostess No February 11, 2022 1:11am Advance Directive Response Recorded Date/ Time Advance Directives Yes November 11:13am Living Will No September 08, 2022 3:33pm Power of Tearoom Hostess No September 08 3:33pm Advance Directive Response Recorded Date/ Time Advance Directives Yes November 11:13am Living Will No November 14 11:07am Power of Tearoom Hostess No November 14 023 11:07am Advance Directive Response Recorded Date/ Time Name of Medical Power of Tearoom Hostess Ty nguyen November 18, 2022 7:55am Advance Directives Yes November 11:13am Living Will Yes November 18 7:55am Power of Tearoom Hostess Yes November 18 023 7:55am Name of Medical Power of Tearoom Hostess Wilfredo [place] November 14, 2022 1:26pm Advance Directive Response Recorded Date/ Time Name of Medical Power of Tearoom Hostess Ty nguyen November 18, 2022 7:55am Name of Medical Power of Tearoom Hostess Wilfredo [place] November 14, 2022 1:26pm Advance Directives Yes November 11:13am Living Will No December 27, 2022 7:16pm Power of Tearoom Hostess No November 7:16pm Advance Directive Response Recorded Date/ Time Name of Medical Power of Tearoom Hostess Ty nguyen November 18, 2022 6:55am Name of Medical Power of Tearoom Hostess Wilfredo [place] November 14, 2022 12:26pm Advance Directives Yes November 10:13am Living Will No December 27, 2022 6:16pm Power of Tearoom Hostess No November 6:16pm Advance Directive Response Recorded Date/ Time Advance Directives Yes November 10:13am Living Will No December 27, 2022 6:16pm Power of Tearoom Hostess No November 6:16pm Advance Directive Response Recorded Date/ Time Name of Medical Power of Tearoom Hostess SON--JACK June 16, 2023 8:32am Advance Directives Yes November 11:13am Living Will Yes June 16, 2023 8:32am Power of Tearoom Hostess Yes June 15 8:32am Latest Code Status on File Code Status Date Activated Date Inactivated Comments Full Code 06/16/2023 4:39 PM 06/20/2023 7:46 PM Advance Directive Response Recorded Date/ Time Living Will Yes June 16, 2023 7:32am Power of Tearoom Hostess Yes June 15 7:32am Advance Directives Yes November 10:13am Advance Directive Response Recorded Date/ Time Living Will Yes June 16, 2023 8:32am Do you have a Healthcare Power of Tearoom Hostess? Yes June 16, 2023 8:32am Advance Directives Yes November 11:13am Advance Directive Response Recorded Date/ Time Living Will No December 27, 2022 7:16pm Do you have a Healthcare Power of Tearoom Hostess? No December 27, 2022 7:16pm Living Will Yes June 16, 2023 8:32am Do you have a Healthcare Power of Tearoom Hostess? Yes June 16, 2023 8:32am Advance Directives Yes November 11:13am Advance Directive Response Recorded Date/ Time Living Will No December 27, 2022 7:16pm Do you have a Healthcare Power of Tearoom Hostess? No December 27, 2022 7:16pm Do you have a Healthcare Power of Tearoom Hostess? Yes September 08, 2024 12:26pm Advance Directives Yes November 11:13am Advance Directive Response Recorded Date/ Time Living Will No December 27, 2022 7:16pm Do you have a Healthcare Power of Tearoom Hostess? No December 27, 2022 7:16pm Do you have a Healthcare Power of Tearoom Hostess? Yes September 10, 2024 5:17pm Do you have a Healthcare Power of Tearoom Hostess? Yes September 08, 2024 12:26pm Advance Directives Yes November 11:13am Advance Directive Response Recorded Date/ Time Do you have a Healthcare Power of Tearoom Hostess? Yes September 10, 2024 5:17pm Do you have a Healthcare Power of Tearoom Hostess? 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 FROM DR JUAREZ Consult LEFT ICA STENOSIS 6 M FU W STIPPLER per STIPPLER GAIT,POLYNEUROPATHY,LUMBAR COMPRESSION FX/RX HERE GAIT DISORDER Reason [...] LEFT ICA STENOSIS 6 M FU W STIPPLER per STIPPLER GAIT,POLYNEUROPATHY,LUMBAR COMPRESSION FX/RX HERE GAIT DISORDER TIA [...] LEFT ICA STENOSIS 6 M FU W STIPPLER per STIPPLER GAIT,POLYNEUROPATHY,LUMBAR COMPRESSION FX/RX HERE GAIT DISORDER TIA [...] LEFT ICA STENOSIS 6 M FU W STIPPLER per STIPPLER GAIT,POLYNEUROPATHY,LUMBAR COMPRESSION FX/RX HERE GAIT DISORDER TIA TIA (cardiology) TIA (cardiology) tia PRISON LAB WORK CONSULT-CAROTID STENOSIS Reason for Visit Abnormality of gait and mobility Carotid stenosis Dementia Polyneuropathy Transient ischemic attack Chronic diastolic (congestive) heart failure Essential (primary) hypertension History of coronary artery stent placement Brain TIA Carotid stenosis Chief Complaint TIA SYMPTOMS, HX OF DM, 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 FROM DR JUAREZ Consult LEFT ICA STENOSIS 6 M FU W STIPPLER per STIPPLER GAIT,POLYNEUROPATHY,LUMBAR COMPRESSION FX/RX HERE GAIT DISORDER TIA TIA (cardiology) TIA (cardiology) tia PRISON LAB WORK CONSULT-CAROTID STENOSIS LABWORK PRISON LABWORK Reason for Visit Abnormality of gait and mobility Carotid stenosis Dementia Polyneuropathy Transient ischemic attack Chronic diastolic (congestive) heart failure Essential (primary) hypertension History of coronary artery stent placement Brain TIA Carotid stenosis Chief Complaint TIA SYMPTOMS, HX OF DM, 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 FROM DR JUAREZ Consult LEFT ICA STENOSIS 6 M FU W STIPPLER per STIPPLER GAIT,POLYNEUROPATHY,LUMBAR COMPRESSION FX/RX HERE GAIT DISORDER TIA TIA (cardiology) TIA (cardiology) tia PRISON LAB WORK CONSULT-CAROTID STENOSIS LABWORK PRISON LABWORK DYARTHRIA DYARTHRIA Reason for Visit Abnormality of gait and mobility Carotid stenosis Dementia Polyneuropathy Transient ischemic attack Chronic diastolic (congestive) heart failure Essential (primary) hypertension History of coronary artery stent placement Brain TIA Carotid stenosis Difficulty with speech Dysarthria Chief Complaint LEFT ICA STENOSIS 6 M FU W STIPPLER per STIPPLER GAIT,POLYNEUROPATHY,LUMBAR COMPRESSION FX/RX HERE GAIT DISORDER TIA TIA (cardiology) TIA (cardiology) tia PRISON LAB WORK CONSULT-CAROTID STENOSIS LABWORK PRISON LABWORK DYARTHRIA DYARTHRIA DYARTHRIA PRISON LABWORK 4 month f/u EORDER Reason for Visit Chronic diastolic (c ongestive) heart failure Essential (primary) hypertension History of coronary artery stent placement Brain TIA Carotid stenosis Difficulty with speech Dysarthria Polyneuropathy Chief Complaint 6 M FU W STIPPLER per STIPPLER GAIT,POLYNEUROPATHY,LUMBAR COMPRESSION FX/RX HERE GAIT DISORDER TIA TIA (cardiology) TIA (cardiology) tia PRISON LAB WORK CONSULT-CAROTID STENOSIS LABWORK PRISON LABWORK DYARTHRIA DYARTHRIA DYARTHRIA PRISON LABWORK 4 month f/u EORDER Reason for Visit Chronic diastolic (c ongestive) heart failure Essential (primary) hypertension History of coronary artery stent placement Brain TIA Carotid stenosis Difficulty with speech Dysarthria Abnormality of gait and mobility Carotid stenosis Dementia Polyneuropathy Transient ischemic attack Chief Complaint TIA TIA (cardiology) TIA (cardiology) tia PRISON LAB WORK CONSULT-CAROTID STENOSIS LABWORK PRISON LABWORK DYARTHRIA DYARTHRIA DYARTHRIA PRISON LABWORK 4 month f/u EORDER PRISON LABWORK Reason for Visit Brain TIA Carotid stenosis Difficulty with speech Dysarthria Abnormality of gait and mobility Carotid stenosis Dementia Polyneuropathy Transient ischemic attack Chief Complaint PRISON LABWORK 4 month f/u EORDER PRISON LABWORK PRISON LAB WORK PRISON LABWORK Reason for Visit Dementia Epilepsy Polyneuropathy Transient ischemic attack Chief Complaint 4 month f/u EORDER PRISON LABWORK PRISON LAB WORK PRISON LAB WORK PRISON LABWORK 7 m fu 4 month f/u Reason for Visit Dementia Epilepsy Polyneuropathy Transient ischemic attack Longstanding persistent atrial fibrillation Essential (primary) hypertension History of coronary artery stent placement Dementia Epilepsy Polyneuropathy Transient ischemic attack Chief Complaint PRISON LABWORK PRISON LAB WORK PRISON LAB WORK PRISON LABWORK LABWORK 7 m fu 4 month f/u LABWORK Reason for Visit Longstanding persist ent atrial fibrillation Essential (primary) hypertension History of coronary artery stent placement Dementia Epilepsy Polyneuropathy Transient ischemic attack Chief Complaint PRISON LABWORK PRISON LAB WORK PRISON LAB WORK PRISON LABWORK LABWORK 7 m fu 4 month f/u LABWORK FALL FALL Reason for Visit Longstanding persist ent atrial fibrillation Essential (primary) hypertension History of coronary artery stent placement Dementia Epilepsy Polyneuropathy Transient ischemic attack Chief Complaint PRISON LAB WOR K PRISON LAB WORK PRISON LABWORK LABWORK 7 m fu 4 month f/u LABWORK FALL FALL LABWORK Reason for Visit Longstanding persist ent atrial fibrillation Essential (primary) hypertension History of coronary artery stent placement Dementia Epilepsy Polyneuropathy Transient ischemic attack Chief Complaint Admit Date PRISON LAB WORK February 05, 2024 5:00am PRISON LAB WORK March 04, 2024 5:00am PRISON LAB WORK March 08, 2024 5:00am PRISON LAB WORK March 10 4:00am LABWORK March 17, 2024 5:00am LABWORK March 19, 2024 5:00am LABWORK March 25, 2024 5:00am PRISON LAB WORK March 26 5:00am PRISON LAB WORK March 29 5:00am PRISON LAB WORK April 05, 2024 5:00am PRISON LAB WORK April 06, 2024 5:00am LABWORK April 09, 2024 5 :00am PRISON LAB WORK April 14, 2024 4:00am PRISON LAB WORK April 28, 2024 5:00am LABWORK May 05, 2024 5 :00am 8 mo fu May 10, 2024 2:34pm PRISON LAB WORK May 19 5:00am Reason for Visit Admit Date Dementia May 10, 2024 2:34pm Epilepsy May 10, 2024 2:34pm Transient ischemic attack May 10, 2024 2:34pm Chief Complaint Admit Date PRISON LAB WORK March 04, 2024 5:00am PRISON LAB WORK March 08, 2024 5:00am PRISON LAB WORK March 10 4:00am LABWORK March 17, 2024 5:00am LABWORK March 19, 2024 5:00am LABWORK March 25, 2024 5:00am PRISON LAB WORK March 26 5:00am PRISON LAB WORK March 29 5:00am PRISON LAB WORK April 05, 2024 5:00am PRISON LAB WORK April 06, 2024 5:00am LABWORK April 09, 2024 5 :00am PRISON LAB WORK April 14, 2024 4:00am PRISON LAB WORK April 28, 2024 5:00am LABWORK May 05, 2024 5 :00am 8 mo fu May 10, 2024 2:34pm [facility] WORK May 12 5:00am [facility] WORK May 19 5:00am [facility] WORK June 09, 2024 5 :00am Chief Complaint Admit Date PRISON LAB WORK March 10 4:00am LABWORK March 17, 2024 5:00am LABWORK March 19, 2024 5:00am LABWORK March 25, 2024 5:00am PR[facility] LAB WORK March 26 5:00am PR[facility] LAB WORK March 29 5:00am PR[facility] LAB WORK April 05, 2024 5:00am PR[facility] LAB WORK April 06, 2024 5:00am LABWORK April 09, 2024 5 :00am PRISON LAB WORK April 14, 2024 4:00am PRISON LAB WORK April 28, 2024 5:00am LABWORK May 05, 2024 5 :00am 8 mo fu May 10, 2024 2:34pm PR[facility] LAB WORK May 12 5:00am PR[facility] LAB WORK May 19 5:00am PRISON LAB WORK June 09, 2024 5 :00am PRISON LAB WORK June 16, 2024 5 :00am [...] Admit Date LABWORK March 25, 2024 5:00am PR[facility] LAB WORK March 26 5:00am PR[facility] LAB WORK March 29 5:00am PR[facility] LAB WORK April 05, 2024 5:00am PR[facility] LAB WORK April 06, 2024 5:00am LABWORK April 09, 2024 5 :00am PRISON LAB WORK April 14, 2024 4:00am PRISON LAB WORK April 28, 2024 5:00am LABWORK May 05, 2024 5 :00am 8 mo fu May 10, 2024 2:34pm PRISON LAB WORK May 12 5:00am PR[facility] LAB WORK May 19 5:00am PR[facility] LAB WORK June 09, 2024 5 :00am PR[facility] LAB WORK June 16, 2024 5 :00am 1 Y FU July 01, 2024 10:3 5am PRISON LAB WORK July 19, 2024 4 :00am Chief Complaint Admit Date PR[facility] LAB WORK May 12 5:00am PR[facility] LAB WORK May 19 5:00am PRISON LAB WORK June 09, 2024 5 :00am PRISON LAB WORK June 16, 2024 5 :00am 1 Y FU July 01, 2024 10:3 5am PRISON LAB WORK July 19, 2024 4 :00am PRISON LAB WORK August 18, 2024 5:0 0am SEIZURE September 08, 2024 12:2 0pm Reason for Visit Admit Date Longstanding persistent atrial fibrillat ion July 01, 2024 10:35am Essential (primary) hypertension July 012024 10:35am History of coronary artery stent placeme nt July 01, 2024 10:35am Chief Complaint Admit Date PR[facility] LAB WORK May 19 5:00am PR[facility] LAB WORK June 09, 2024 5 :00am PRISON LAB WORK June 16, 2024 5 :00am 1 Y FU July 01, 2024 10:3 5am PRISON LAB WORK July 19, 2024 4 :00am PRISON LAB WORK August 18, 2024 5:0 0am SEIZURE September 08, 2024 12:2 0pm Chief Complaint Admit Date PRISON LAB WORK May 19 5:00am PRISON LAB WORK June 09, 2024 5 :00am PRISON LAB WORK June 16, 2024 5 :00am 1 Y FU July 01, 2024 10:3 5am PRISON LAB WORK July 19, 2024 4 :00am PRISON LAB WORK August 18, 2024 5:0 0am SEIZURE September 08, 2024 12:2 0pm STROKE VS SEIZURE September 10, 2024 4:03 pm Chief Complaint Admit Date PRISON LAB WORK May 19 5:00am PRISON LAB WORK June 09, 2024 5 :00am PRISON LAB WORK June 16, 2024 5 :00am 1 Y FU July 01, 2024 10:3 5am PRISON LAB WORK July 19, 2024 4 :00am PRISON LAB WORK August 18, 2024 5:0 0am [...] 2024 4 :03pm Chief Complaint Admit Date PRISON LAB WORK May 19 5:00am PRISON LAB WORK June 09, 2024 5 :00am PRISON LAB WORK June 16, 2024 5 :00am 1 Y FU July 01, 2024 10:3 5am PRISON LAB WORK July 19, 2024 4 :00am PRISON LAB WORK August 18, 2024 5:0 0am SEIZURE September 08, 2024 12:2 0pm STROKE VS SEIZURE September 10, 2024 4:03 pm STROKE VS SEIZURE September 11, 2024 12:1 4pm 2 SEIZURES/ IN [facility] September 13, 2024 2:04 pm EORDERS September 13, 2024 3:03 pm Reason for Visit Admit Date Longstanding persistent atrial fibrillat ion July 01, 2024 10:35am Essential (primary) hypertension July 012024 10:35am History of coronary artery stent placeme nt July 01, 2024 10:35am Difficulty with speech September 10, 2024 4 :03pm Epilepsy September 13, 2024 2:04 pm Chief Complaint Admit Date PRISON LAB WORK August 18, 2024 5:0 0am SEIZURE September 08, 2024 12:2 0pm STROKE VS SEIZURE September 10, 2024 4:03 pm STROKE VS SEIZURE September 11, 2024 12:1 4pm 2 SEIZURES/ IN [facility] September 13, 2024 2:04 pm EORDERS September 13, 2024 3:03 pm LABWORK September 17, 2024 5:00 am PRISON LAB WORK September 22, 2024 4: 00am PRISON LAB WORK September 24, 2024 5: 00am PRISON LAB WORK October 04, 2024 5:0 0am PRISON LAB WORK October 11, 2024 4: 00am PRISON LAB WORK October 25, 2024 5: 00am [...] 2:04pm Transient ischemic attack September 13 2:04pm residential current use of anticoagulant A [id number] 8:14am Lower extremity edema November 22, 2024 8:14am 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 November 22, 2024 8:14am Essential (primary) hypertension November 22, 2024 8:14am Hyperlipidemia November 22, 2024 8: 14am Chief Complaint Admit Date SEIZURE September 08, 2024 12:2 0pm STROKE VS SEIZURE September 10, 2024 4:03 pm STROKE VS SEIZURE September 11, 2024 12:1 4pm 2 SEIZURES/ IN [facility] September 13, 2024 2:04 pm EORDERS September 13, 2024 3:03 pm LABWORK September 17, 2024 5:00 am PRISON LAB WORK September 22, 2024 4: 00am PRISON LAB WORK September 24, 2024 5: 00am PRISON LAB WORK October 04, 2024 5:0 0am PRISON LAB WORK October 11, 2024 4: 00am PRISON LAB WORK October 25, 2024 5: 00am [...] 2:04pm Transient ischemic attack September 13 2:04pm residential current use of anticoagulant A [email or web address] 8:14am Lower extremity edema November 22, 2024 8:14am Persistent atrial fibrillation November 222024 8:14am 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 November 22, 2024 8:14am Essential (primary) hypertension November 22, 2024 8:14am Hyperlipidemia November 22, 2024 8: 14am Additional Source Comments INFORMATION SOURCE (unrecogn ized section and content) DATE CREATED AUTHOR 02/04/2018 [facility] DATE CREATED AUTHOR AUTHOR'S ORGANIZ ATION 11/12/2019 [facility] DATE CREATED AUTHOR AUTHOR'S ORGANIZ ATION 06/26/2023 [facility] DATE CREATED AUTHOR AUTHOR'S ORGANIZ ATION 02/02/2025 [facility] Source Comments (unrecognize d section and content) In the event this informatio n is protected by the Federal Confidentiality of Alcohol and Drug Abuse Patient Records regulations: The Federal rules restrict any use of the information to criminally investigate or prosecute any alcohol or drug abuse patient.[facility] the event this information is protected by the Federal Confidentiality of Alcohol and Drug Abuse Patient Records regulations: The Federal rules restrict any use of the information to criminally investigate or prosecute any alcohol or drug abuse patient.[facility] the event this information is protected by the Federal Confidentiality of Alcohol and Drug Abuse Patient Records regulations: The Federal rules restrict any use of the information to criminally investigate or prosecute any alcohol or drug abuse patient.[facility] the event this information is protected by the Federal Confidentiality of Alcohol and Drug Abuse Patient Records regulations: The Federal rules restrict any use of the information to criminally investigate or prosecute any alcohol or drug abuse patient.[facility] the event this information is protected by the Federal Confidentiality of Alcohol and Drug Abuse Patient Records regulations: The Federal rules restrict any use of the information to criminally investigate or prosecute any alcohol or drug abuse patient.[facility] Reason for Visit (unrecogniz ed section and content) Reason Onset Date Comments Refill Request Refill Request 11/11/2019 Reason Comments Arm Injury Pt arrives via [facility] from [facility] with complaints of right elbow fracture. Patient was sent here for ortho consult. No pain on arrival. Arrives with right arm splinted. Specialty Diagnoses / Procedures Referred By Ana bo Referred To Contact Diagnoses Closed displaced fracture of medial condyle of right humerus, initial encounter Procedures .. Jayshree Cortez MD [address] [place] [address] [facility] [address] [place] [id number] Referral ID Status Reason Start Date Expiration Date Visits Re quested Visits Authorized [id number] 1 1 Telephone Encounter - Anne Marie [...] Visit date not found Patient Phone numbers: [phone] (home) Request is for script(s) to be [...] Swan MS Other Provider Active Start: [facility] 2024 Dr. Dmitriy Diop MD Other Provider [...] Status: Active Member Role Status Dates Dr. Aleaxndra Hagen MD Primary Care Provider Active Dr. [...] MD Primary Care Provider Active Suze Prebiorquidea NIGHT BAKER, NIGHT BAKER-C Attending Provider, Referring Pr ovider Active Team [...] Rosemary Doran MD Primary Care Provider Active Junior Financial Analyst Relationship Specialty Start Date End Date FernandoAlexandra barillas [address] [place] [id number] PCP - General Family Medicine 06/20/23 Team [...] September 10, 2024 End: September 11, 2024 Asuh Leonard MD Other Provider Active Start: September [...] (COMPLETED) 5 mg, Oral, Once Warfarin, On Mamat 06/19/23 at 1700, For 1 dose 1738 [...] administration of dextrose 50% or glucagon. 1511 ([facility] Hold - Provider: Automatic Transfer Provider - Reason: Patient not available)2025 ([facility] Unhold - Provider: Automatic Transfer Provider) [...] Glucostabilizer, dose as instructed per system. 1511 ([facility] Hold - Provider: Automatic Transfer Provider - Reason: Patient not available)2025 ([facility] Unhold - Provider: Automatic Transfer Provider) [...] 15 minutes x2 and notify provider. 1511 ([facility] Hold - Provider: Automatic Transfer Provider - Reason: Patient not available)2025 ([facility] Unhold - Provider: Automatic Transfer Provider) [...] 15 minutes x2 and notify provider. 1511 ([facility] Hold - Provider: Automatic Transfer Provider - Reason: Patient not available)2025 ([facility] Unhold - Provider: Automatic Transfer Provider) [...] of each other unless specifically ordered. 1511 ([facility] Hold - Provider: Automatic Transfer Provider - Reason: Patient not available)2025 ([facility] Unhold - Provider: Automatic Transfer Provider) naloxone (Narcan) injection 0.4 mg 0.4 mg, IntraVENous, Every 5 min PRN, opioid reversal, respiratory depression, Starting on Fri06/16/23 at 1647, +++ For RR <10, pinpoint pupils, over sedation for opioid reversal - MUST notify manager corporate communications provider immediately after first dose, may give IM or SQ if no IV access +++ 1511 ([facility] Hold - Provider: Automatic Transfer Provider - Reason: Patient not available)2025 ([facility] Unhold - Provider: Automatic Transfer Provider) ondansetron (Zofran) injection 4 mg(Linked Group 3) 4 mg, IntraVENous, Every 6 hours PRN, nausea, vomiting, Starting on Fri06/16/23 at 1639, 1st Line. Give IV if patient is unable to take orally. If inadequate response within 60 minutes, proceed to next-line agent or contact provider if no further options ordered. 1511 ([facility] Hold - Provider: Automatic Transfer Provider - Reason: Patient not available)2025 ([facility] Unhold - Provider: Automatic Transfer Provider) [...] blister pack until just before administering. 1511 ([facility] Hold - Provider: Automatic Transfer Provider - Reason: Patient not available)2025 ([facility] Unhold - Provider: Automatic Transfer Provider) oxyCODONE (Roxicodone) immediate release tablet 2.5 mg(Linked Group 4) 2.5 mg, Oral, Every 4 hours PRN, moderate pain (4-6), Starting on Fri06/16/23 at 1639 1512 ([facility] Hold - Provider: Automatic Transfer Provider - Reason: Patient not available)2025 ([facility] Unhold - Provider: Automatic Transfer Provider) [...] Transfer Provider - Reason: Patient not available)2025 ([facility] Unhold - Provider: Automatic Transfer Provider) [...] BE BASED ON THE PRIMARY CLINICAL RECORDS. [facility] [employer] [facility]. provides no warranty or guarantee of the accuracy or completeness of information in this document.
[2025-03-01 07:43] LABS: INR Fingerstick 2.6
== END ==
DX: Z79.01 Long term (current) use 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 (principal)
CPT/HCPCS: 36416; 85610